=== PATIENT | female | born 1960 | race Caucasian/White ===

== ENCOUNTER 2020-06-27 12:32 | Emergency (ER) | payer MEDICARE, MEDICAID, SELFPAY ==
[2020-06-27 12:41] VITALS: BP 115/53; PULSE 70; RESP 20; TEMP 36.2; O2SAT 95
--- NOTE | 2020-06-27 12:51 | ED.NAVMDI ---
HPI - Nausea/Vomiting/Diarrhea General Chief complaint: Nausea/Vomiting/Diarrhea Stated complaint: diarrhea/joint pain/sinus issue Time Seen by Provider: 06/27/20 12:50 History of Present Illness HPI Narrative: 59 yo female with intellectual disability and multiple comorbidities presents to the ED for diarrhea. Diarrhea intermittently for the past 5 days. Associated with mild nausea, dark urine, and LUQ discomfort. Additionally having light headedness on standing. She tried taking peptobismol and has not had any diarrhea today. Related Data Home Medications Medication Instructions Recorded Confirmed aspirin 81 mg PO DAILY 06/27/20 blood sugar diagnostic [OneTouch 06/27/20 06/27/20 Verio test strips] carvedilol 06/27/20 cholecalciferol (vitamin D3) 50 mcg PO DAILY 06/27/20 diltiazem HCl 06/27/20 diphenhydramine HCl [Benadryl] 25 mg PO HS PRN 06/27/20 escitalopram oxalate mg 06/27/20 furosemide 06/27/20 insulin glargine [Lantus U-100 SUBCUT 06/27/20 Insulin] insulin lispro [Humalog U-100 06/27/20 Insulin] insulin lispro [Humalog U-100 06/27/20 Insulin] insulin syringe-needle U-100 [Sure 06/27/20 06/27/20 Comfort Insulin Syringe] insulin syringe-needle U-100 06/27/20 06/27/20 [TRUEplus Insulin] levothyroxine 06/27/20 lisinopril 06/27/20 nortriptyline 06/27/20 omeprazole 06/27/20 oxybutynin chloride 06/27/20 potassium chloride meq PO 06/27/20 rivaroxaban [Xarelto] mg 06/27/20 Allergies Allergy/AdvReac Type Severity Reaction Status Date / Time Sulfa (Sulfonamide Allergy Mild RASH Verified 06/27/20 12:51 Antibiotics) Review of Systems Review of Systems: All systems reviewed & are unremarkable except as noted in HPI and below Constitutional: Constitutional: Denies fever(s) Cardiovascular: Cardiovascular: Denies chest pain Respiratory: Respiratory: Denies dyspnea Gastrointestinal: Gastrointestinal: Denies abdominal pain, Reports diarrhea, Reports nausea and Denies vomiting Genitourinary: Genitourinary: Denies hematuria and Denies dysuria Neurologic: Reports dizziness and Denies syncope [facility] Past Medical History Medical History (Updated 06/27/20 @ 14:23 by Francesco Billings MD) Diabetes HTN (hypertension) Hypothyroidism Social History Social History Gender identity (if verbalized by the patient): Female Exam Const: General: no acute distress and alert Nutritional Appearance: obese Orientation/consciousness: patient oriented x3 HENMT: Head: normal to inspection Resp: Effort & Inspection: normal respiratory effort Auscultation: clear to auscultation bilaterally Cardio: Rate: regular rate Rhythm: regular rhythm GI: GI Palp: Yes Soft to palpation and No Tenderness to palpation present (GI) Skin: General skin exam: normal color Rashes: no rashes Neuro: General: patient oriented x3, moves all extremities and CN's II-XI intact bilaterally Extrem: General: normal to inspection Course Vital Signs Vital signs: Vital Signs Temperature 36.2 C L 06/27/20 12:41 Pulse Rate 70 06/27/20 12:41 Respiratory Rate 20 06/27/20 12:41 Blood Pressure 115/53 L 06/27/20 12:41 Pulse Oximetry 95 06/27/20 12:41 Temperature 36.2 C L 06/27/20 12:41 Pulse Rate 70 06/27/20 12:41 Respiratory Rate 20 06/27/20 12:41 Blood Pressure 115/53 L 06/27/20 12:41 Pulse Oximetry 95 06/27/20 12:41 MDM - Nausea/Vomiting/Diarrhea MDM Narrative Medical decision making narrative: Labs reassuring. Diarrhea. Lab Data Result diagrams: 06/27/20 13:09 06/27/20 13:09 Labs: Lab Results 06/27/20 06/27/20 06/27/20 Range/Units 13:09 13:09 13:09 WBC 6.6 (4.5-10.0) K/mm3 RBC 4.33 (4.2-5.4) M/mm3 Hgb 14.0 (12.0-15.0) g/dL Hct 41.0 (37.0-47.0) % MCV 94.7 (80-100) fl MCH 32.3 (26-34) pg MCHC 34.1 (32-36) g/dl RDW 11.9 (11.5-14.5) % Plt Count 264 (150-375) k/m
[2020-06-27 13:16] LABS: Basophils Absolute Auto 0.1 K/mm3 (0.0-0.1); Basophils Percent Auto 0.8 % (0.2-1.2); Eosinophils Absolute Auto 0.2 K/mm3 (0-0.3); Eosinophils Percent Auto 3.5 % (0-4.4); Immature Granulocyte Absolute 0.02 K/mm3 (0.00-0.031); Immature Granulocyte Percent A 0.3 % (0-0.5); Lymphocytes Absolute Auto 1.57 K/mm3 (0.9-3.2); Lymphocytes Percent Auto 23.9 % (18.3-44.2); Mean Corpuscular HGB Conc 34.1 g/dl (32-36); Mean Corpuscular Hemoglobin 32.3 pg (26-34); Mean Corpuscular Volume 94.7 fl (80-100); Mean Platelet Volume 9.6 fl (7.4-10.4); Monocytes Absolute Auto 0.6 K/mm3 (0.1-0.6); Monocytes Percent Auto 8.5 % (2.6-8.5); Neutrophils Absolute Auto 4.2 K/mm3 (1.3-6.7); Platelet Count Result 264 k/mm3 (150-375); Red Blood Count 4.33 M/mm3 (4.2-5.4); Red Cell Distribution Width 11.9 % (11.5-14.5); White Blood Count 6.6 K/mm3 (4.5-10.0)
[2020-06-27 13:18] LABS: Add Urine Microscopic? NO; Appearance Urine Clear (Clear); Bilirubin Urine Negative (Negative); Blood Urine Negative (Negative); Color Urine Colorless (Yellow); Glucose Urine UA Negative (Negative); Ketones Urine Negative (Negative); Leukocyte Esterase Ur Negative LEU/UL (Negative); Nitrate Urine Negative (Negative); Protein Urine Negative (Negative); Specific Grav Ur 1.009 (1.001-1.035); Urobilinogen Urine Negative mg/dL (<2.0)
[2020-06-27 13:27] LABS: Potassium 4.5 mmol/L (3.4-5.0)
[2020-06-27 13:30] LABS: Alanine Aminotransferase 18 U/L (4-35); Albumin Level 3.9 g/dL (3.5-5.1); Alkaline Phosphatase 184 U/L (38-126); Anion Gap 4 mmol/L (8-16); Aspartate Amino Transferase 20 U/L (14-36); Bilirubin,Total 0.4 mg/dL (0.2-1.3); Blood Urea Nitrogen 19 mg/dL (7-17); Calcium 9.5 mg/dL (8.4-10.2); Carbon Dioxide 29 mmol/L (22-30); Chloride 101 mmol/L (98-107); Estimated CRCL calculation 89 ml/min; Estimated Glomerular Filt Rate > 60; Glucose 160 mg/dL (65-105); Lipase 77 U/L (23-300); Sodium 134 mmol/L (137-145)
[2020-06-27] MEDS: SODIUM CHLORIDE 0.9% IV 1,000 ML 999 ML IV CONT (13:48)
== END 2020-06-27 14:20 | disposition home or self-care (01) ==
PROVIDERS: Emergency Provider Emergency Medicine; PCP Family Medicine
DX: R19.7 Diarrhea, unspecified (principal); E11.9 Type 2 diabetes mellitus without complications; I10 Essential (primary) hypertension; E03.9 Hypothyroidism, unspecified
CPT/HCPCS: 36415; 80053; 81003; 83690; 85025; 96360; 99283; J7030

== ENCOUNTER 2022-09-05 21:34 | Emergency (ER) | payer OTHER, SELFPAY ==
--- NOTE | ~2022-09-05 | XR_ITS ---
EXAMINATION: XR chest 2V DATE: 09/05/2022 23:47 INDICATION: Cough. Upper respiratory infection. TECHNIQUE: Frontal and lateral views of the chest were obtained. COMPARISON: Chest single view 03/16/17 FINDINGS: Delphine B lines are noted, consistent mild pulmonary edema. No pleural effusion or pneumotho rax. Cardiomegaly is noted. There is a left chest pacer/defibrillator with leads in right atrium and right ventricle. Surgical clips in the right upper quadrant are likely from cholecystectomy. There is a wire in perihilar right lower lobe. IMPRESSION: 1. Mild pulmonary edema. 2. Cardiomegaly. 3. Wire in perihilar right lower lobe, which may be an embolized foreign body, new from 03/16/17. Reviewed, dictated and finalized at location A. TRADER
[2022-09-05 21:41] VITALS: BP 119/80; PULSE 81; RESP 18; TEMP 36.2; O2SAT 98
[2022-09-05 22:32] LABS: Influenza A QL RT-PCR Negative (Negative); Influenza B QL RT-PCR Negative (Negative); SARS-CoV-2 RNA PCR Negative
--- NOTE | 2022-09-05 23:13 | ECG_ITS ---
Measurements Intervals [place] Rate: 75 P: [place]: 0 QRS: 29 QRSD: 146 T: 105 QT: 445 QTc: 498 Interpretive Statements ATRIAL FIBRILLATION LEFT BUNDLE BRANCH BLOCK LOW VOLTAGE- DIFFUSE LEADS BASELINE ARTIFACT- I, II, III, AVR, AVL, AVF, V1-V6 ABNORMAL ECG NO PREVIOUS ECG AVAILABLE FOR COMPARISON Electronically Signed On 09-06-2022 10:32:23 [employer] by Grabiel Caballero D.O.
--- NOTE | 2022-09-05 23:27 | ED.URI ---
HPI - URI/Sore Throat General Chief Complaint: Upper Respiratory Infection Stated Complaint: flu symptoms Time Seen by Provider: 09/05/22 21:51 Source: patient and family Mode of arrival: ambulatory Limitations: no limitations History of Present Illness HPI Narrative: Patient is a 61 y/o female who presents to the ED with c/o URI sx's. Patient reports she received her influenza and PNA vaccines on 08/26. She began to feel unwell on 08/30, and complains of mild productive cough, subjective fevers (never over 100 degrees F per patient's daughter at bedside), congestion, sore throat, myalgias, headache. Cough has began to improve slightly. Denies chest pain, difficulty breathing, nausea, vomiting, abdominal pain. Patient has been taking Tylenol, Mucinex, Robitussin for her symptoms with some relief. Related Data Home Medications Medication Instructions Recorded Confirmed aspirin 81 mg chewable tablet 81 mg PO DAILY 06/27/20 blood sugar diagnostic (OneTouch 06/27/20 06/27/20 Verio test strips) carvedilol 25 mg tablet 06/27/20 cholecalciferol (vitamin D3) 50 50 mcg PO DAILY 06/27/20 mcg (2,000 unit) chewable tablet diltiazem HCl 30 mg tablet 06/27/20 diphenhydramine HCl 25 mg capsule 25 mg PO HS PRN Insomnia 06/27/20 (Benadryl) escitalopram oxalate 10 mg tablet mg 06/27/20 furosemide 40 mg tablet 06/27/20 insulin glargine 100 unit/mL subcut 06/27/20 subcutaneous solution (Lantus U-100 Insulin) insulin lispro 100 unit/mL 06/27/20 subcutaneous solution (Humalog U-100 Insulin) insulin lispro 100 unit/mL 06/27/20 subcutaneous solution (Humalog U-100 Insulin) insulin syringe-needle U-100 0.5 06/27/20 06/27/20 mL 31 gauge x 5/16 (Sure Comfort Insulin Syringe) insulin syringe-needle U-100 0.5 06/27/20 06/27/20 mL 31 gauge x 5/16 (TRUEplus Insulin) levothyroxine 50 mcg tablet 06/27/20 lisinopril 5 mg tablet 06/27/20 nortriptyline 10 mg capsule 09/18/20 omeprazole 20 mg capsule,delayed 06/27/20 release oxybutynin chloride 5 mg tablet 06/27/20 potassium chloride 20 mEq meq PO 06/27/20 tablet,extended release(part/cryst) rivaroxaban 20 mg tablet (Xarelto) mg 06/27/20 Allergies Allergy/AdvReac Type Severity Reaction Status Date / Time Sulfa (Sulfonamide Allergy Mild RASH Verified 09/05/22 21:45 Antibiotics) Review of Systems Review of Systems: CONSTITUTIONAL: Reports subjective fevers. ENT: Reports rhinorrhea, congestion, sore throat. CARDIOVASCULAR: Denies chest pain. RESPIRATORY: Reports productive cough. Denies dyspnea. GASTROINTESTINAL: Denies abdominal pain, nausea, vomiting. MUSCULOSKELETAL: Reports myalgias. NEUROLOGIC: Reports headache. All systems reviewed & are unremarkable except as noted in HPI and below PMFSH Past Medical History Medical History (Updated 09/06/22 @ 01:25 by Bonnie Calderón PA-C) Atrial fibrillation Diabetes GERD (gastroesophageal reflux disease) HTN (hypertension) Hypothyroidism Overactive bladder Pacemaker Surgical History Surgical History AICD (automatic cardioverter/defibrillator) present Social History Social History (Updated 09/05/22 @ 23:53 by Bonnie Calderón PA-C) Smoking status: Never smoker Gender identity (if verbalized by the patient): Female Exam Narrative: GENERAL: Well appearing, morbidly obese, non-toxic, in no acute distress. EENT: PERRLA/EOMI, conjunctiva clear. No nasal drainage. Minimal posterior pharynx erythema and to uvula, no tonsillar hypertrophy or exudate. HEAD: Normocephalic, atraumatic. NECK: Supple. No adenopathy, no masses. RESPIRATORY: Airway patent, respirations nonlabored. Clear to auscultation bilaterally, no rales, rhonchi, wheezing. CARDIOVASCULAR: Regular rate and rhythm without murmurs, rubs, or gallops. Radial pulses 2+ and equal bilaterally. ABDOMINAL: Soft, nontender, nondistended, no h
[2022-09-05 23:33] LABS: Basophils Absolute Auto 0.1 K/mm3 (0.0-0.1); Basophils Percent Auto 0.9 % (0.2-1.2); Eosinophils Absolute Auto 0.2 K/mm3 (0-0.3); Eosinophils Percent Auto 2.8 % (0-4.4); Hematocrit 48.6 % (37.0-47.0); Immature Granulocyte Absolute 0.02 K/mm3 (0.00-0.031); Immature Granulocyte Percent A 0.3 % (0-0.5); Lymphocytes Absolute Auto 2.57 K/mm3 (0.9-3.2); Lymphocytes Percent Auto 34.8 % (18.3-44.2); Mean Corpuscular HGB Conc 32.9 g/dl (32-36); Mean Corpuscular Hemoglobin 32.1 pg (26-34); Mean Corpuscular Volume 97.4 fl (80-100); Mean Platelet Volume 9.4 fl (7.4-10.4); Monocytes Absolute Auto 0.6 K/mm3 (0.1-0.6); Monocytes Percent Auto 8.1 % (2.6-8.5); Neutrophils Absolute Auto 3.9 K/mm3 (1.3-6.7); Neutrophils Percent Auto 53.1 % (45.5-73.1); Platelet Count Result 282 k/mm3 (150-375); Red Blood Count 4.99 M/mm3 (4.2-5.4); Red Cell Distribution Width 12.3 % (11.5-14.5); White Blood Count 7.4 K/mm3 (4.5-10.0)
[2022-09-06 00:46] LABS: Alanine Aminotransferase 26 U/L (6-35); Alkaline Phosphatase 180 U/L (38-126); Anion Gap 10 mmol/L (8-16); Aspartate Amino Transferase 32 U/L (14-36); Bilirubin,Total 0.5 mg/dL (0.2-1.3); Blood Urea Nitrogen 21 mg/dL (7-17); Calcium 9.2 mg/dL (8.4-10.2); Carbon Dioxide 27 mmol/L (22-30); Chloride 101 mmol/L (98-107); Estimated CRCL calculation 82 ml/min; Estimated Glomerular Filt Rate > 60; Glucose 179 mg/dL (65-110); Sodium 138 mmol/L (137-145)
[2022-09-06 01:37] VITALS: BP 129/70; PULSE 82; RESP 30; O2SAT 96
== END 2022-09-06 01:37 | disposition home or self-care (01) ==
PROVIDERS: Emergency Medicine; Emergency Provider Physician Assistant; PCP Family Medicine
DX: J06.9 Acute upper respiratory infection, unspecified (principal); I48.91 Unspecified atrial fibrillation; E11.9 Type 2 diabetes mellitus without complications; I10 Essential (primary) hypertension; E03.9 Hypothyroidism, unspecified; Z79.01 Long term (current) use of anticoagulants; Z20.822 Contact with and (suspected) exposure to COVID-19
CPT/HCPCS: 36415; 71046; 80053; 85025; 87636; 93005; 99283

== ENCOUNTER 2023-01-09 18:13 | Emergency (ER) | payer OTHER, SELFPAY ==
--- NOTE | 2023-01-09 18:43 | PC.NURSE ---
Pt to the intake desk and states that she is [facility]. Pt sister took out by wheelchair
== END 2023-01-09 18:50 | disposition left against medical advice (07) ==
LOC: ANHED 18:49
PROVIDERS: PCP Family Medicine
DX: Z53.21 Procedure and treatment not carried out due to patient leaving prior to being seen by health care provider (principal)
CPT/HCPCS: 99199

== ENCOUNTER 2024-05-20 20:18 | Inpatient (IN) | payer OTHER, SELFPAY ==
[2024-05-20] VITALS (8 sets, daily range): BP systolic 86–112; BP diastolic 45–72; PULSE 84–94; RESP 20–34; TEMP 36.6; O2SAT 94–97
--- NOTE | ~2024-05-20 | CT_ITS ---
EXAMINATION: CT brain wo con DATE: 05/21/2024 22:56 INDICATION: Severe neck pain . TECHNIQUE: Computed tomography (CT) of the head was performed without intravenous contrast. The mA wa s adjusted according to patient size. Iterative reconstruction technique was employed. The dose-lengt h product was 681.00 mGy-cm. COMPARISON: None. FINDINGS: No acute intracranial hemorrhage or extra-axial fluid collection. No hydrocephalus, mass, or herniation. No acute ischemic infarct. Unremarkable dural venous sinus attenuation. No acute osseous abnormality. The aerated spaces are clear. Mild atrophy and chronic white matter change. Atherosclerotic intracranial calcification. IMPRESSION: No acute intracranial process. Reviewed, dictated and finalized at location K.
--- NOTE | ~2024-05-20 | XR_ITS ---
EXAMINATION: XR chest 2V DATE: 05/21/2024 00:50 INDICATION: Hypotension. TECHNIQUE: Frontal and lateral views of the chest were obtained. COMPARISON: Chest 2 views 09/05/2022, CT abdomen and pelvis 05/21/2024 FINDINGS: There is a diffuse interstitial pattern, consistent with mild pulmonary edema. There are tr dory pleural effusions. No pneumothorax. Cardiomegaly is noted. There is a left chest wall pacer with leads in the right atrium and right ventricle. Surgical clips in the right upper quadrant are likely from cholecystectomy. IMPRESSION: 1. Mild pulmonary edema with trace pleural effusions. 2. Cardiomegaly. Reviewed, dictated and finalized at location A.
--- NOTE | ~2024-05-20 | US_ITS ---
EXAMINATION: US abdomen limited DATE: 05/21/2024 10:53 INDICATION: Transaminitis. Hyperbilirubinemia. Abdominal pain. Nausea and vomiting. TECHNIQUE: Multiple grayscale and Doppler ultrasound images of the abdomen were obtained. COMPARISON: CT abdomen and pelvis 05/21/2024 FINDINGS: The visualized portions of the head, body, and tail of the pancreas are normal. Abdominal a pantera is normal in caliber. The liver is normal without focal lesion. There is normal flow in main por cathy vein. The gallbladder is absent. The common duct is normal and measures 5 mm. IMPRESSION: 1. Normal right upper quadrant ultrasound status post cholecystectomy. Reviewed, dictated and finalized at location A.
--- NOTE | ~2024-05-20 | CT_ITS ---
EXAMINATION: CT abdomen pelvis w con DATE: 05/21/2024 00:36 INDICATION: Left abdominal pain. TECHNIQUE: Computed tomography (CT) of the abdomen and pelvis was performed with 100 mL Omnipaque 350 intravenous contrast. Automated exposure control and iterative reconstruction technique were employe d. The dose-length product was 1765.33 mGy-cm. COMPARISON: CT abdomen and pelvis 03/16/2017 FINDINGS: The visualized portions of the lung bases demonstrate mild atelectasis. A calcified left hemalatha ng nodule and calcified left hilar lymph nodes are consistent with old granulomatous disease. There a re trace pleural effusions. Cardiomegaly is noted. There is a trace pericardial effusion. There are p acer wires in right atrium and right ventricle. There is a small sliding hiatal hernia. The liver, sp deng, pancreas, adrenal glands, and kidneys are normal. There are changes of cholecystectomy. There i s diverticulosis of the colon without evidence of diverticulitis. There are no dilated loops of bowel . The appendix is not visualized. There are no pathologically enlarged lymph nodes. There is no free intraperitoneal fluid. There is mild lumbar spondylosis. There is mild chronic anterior wedging of mu ltiple thoracic vertebral bodies. There is moderate thoracic spondylosis. IMPRESSION: 1. Small sliding hiatal hernia. Reviewed, dictated and finalized at location A.
--- NOTE | ~2024-05-20 | CT_ITS ---
EXAMINATION: CT cervical spine wo con DATE: 05/21/2024 22:56 INDICATION: neck pain TECHNIQUE: Computed tomography (CT) of the cervical spine was performed without intravenous contrast. Automated exposure control and iterative reconstruction technique were employed. The dose-length pro duct was 681.00 mGy-cm. COMPARISON: None. FINDINGS: Vertebral Body Alignment: Intact. Craniocervical and atlantoaxial alignment: Mild degenerative change. Alignment intact. Osseous structures/fracture: No evidence of a lytic or blastic process in the visualized spine. No e vidence of acute fracture. Cervical soft tissues: The paraspinal soft tissues planes are maintained. Partially visualized pacing wires. Degenerative changes: Multilevel mild degenerative disc disease. Multilevel facet arthropathy, modera te at C2-3. IMPRESSION: No acute fracture or traumatic malalignment in the cervical spine. No severe central canal or neural foraminal narrowing. Reviewed, dictated and finalized at location K. IMPRESSION: No acute fracture or traumatic malalignment in the cervical spine. No severe ce ntral canal or neural foraminal narrowing.
[2024-05-20 22:39] LABS: Hematocrit 40.4 % (37.0-47.0); Immature Platelet Fraction Pct 3.9 % (0.9-11.2); Mean Corpuscular HGB Conc 34.7 g/dl (32-36); Mean Corpuscular Hemoglobin 33.7 pg (26-34); Mean Corpuscular Volume 97.1 fl (80-100); Mean Platelet Volume 10.2 fl (7.4-10.4); Platelet Count Result 109 k/mm3 (150-375); Red Blood Count 4.16 M/mm3 (4.2-5.4); Red Cell Distribution Width 12.6 % (11.5-14.5); White Blood Count 5.7 K/mm3 (4.5-10.0)
[2024-05-20 22:55] LABS: Alanine Aminotransferase 85 U/L (6-35); Albumin Level 3.4 g/dL (3.5-5.1); Alkaline Phosphatase 159 U/L (38-126); Anion Gap 11 mmol/L (4-12); Aspartate Amino Transferase 127 U/L (14-36); Bilirubin,Total 2.4 mg/dL (0.2-1.3); Blood Urea Nitrogen 34 mg/dL (7-17); Calcium 8.5 mg/dL (8.4-10.2); Carbon Dioxide 23 mmol/L (22-30); Chloride 88 mmol/L (98-107); Estimated CRCL calculation 69 ml/min; Estimated Glomerular Filt Rate 56; Glucose 166 mg/dL (65-110); Potassium 3.8 mmol/L (3.4-5.0); Sodium 122 mmol/L (137-145)
[2024-05-20 23:02] LABS: Neutrophils Percent Manual 78 % (46-73); Total Cells Counted 100
[2024-05-20 23:03] LABS: Band Neutrophils Percent 17 % (0-6); Lymphocytes Absolute Manual 0.17 K/mm3 (1.1-4.5); Monocytes Absolute Manual 0.11 K/mm3 (0.1-0.90); Monocytes Percent Manual 2 % (3-9); Neutrophils Absolute Manual 5.41 K/mm3 (1.7-7.2); Platelet Estimate Decreased (Adequate)
[2024-05-20 23:04] LABS: Burr Cells 1+; Schistocytes None Seen
[2024-05-20 23:13] LABS: Influenza A QL RT-PCR Negative (Negative); Influenza B QL RT-PCR Negative (Negative); RSV RNA, RT-PCR Negative (Negative); SARS-CoV-2 RNA PCR Negative (Negative)
--- NOTE | 2024-05-20 23:33 | ED.FEVER ---
HPI - Fever General Chief Complaint: Fever <Argelia Pruett PA-C - Last Filed: 05/21/24 02:44> Stated Complaint: fever <Argelia Pruett PA-C - Last Filed: 05/21/24 02:44> Time Seen by Provider: 05/20/24 23:12 <Argelia Pruett PA-C - Last Filed: 05/21/24 02:44> History of Present Illness HPI Narrative: 63-year-old female with history of atrial fibrillation, GERD, hypertension, hypothyroidism, insulin-dependent diabetes, AICD present presents to the emergency department with her sister at bedside for fever, N/V/ D. Patient is a poor historian and has a history of intellectual disability. When I ask her what is wrong she states she has pain and points to her left side your left upper quadrant. She also endorses that she has had some nausea and vomiting as well as diarrhea over the past couple of days. She states she has had a fever when I asked order fevers but she says Her temperature has been 98. She denies dysuria or hematuria, cough or congestion. Patient's sister is at bedside and states patient lives at home alone. She is at baseline mental status per sister at bedside. <Argelia Pruett PA-C - Last Filed: 05/21/24 02:44> Related Data Home Medications: Home Medications Medication Instructions Recorded Confirmed aspirin 81 mg chewable tablet 81 mg PO DAILY 06/27/20 blood sugar diagnostic (OneTouch 06/27/20 06/27/20 Verio test strips) carvedilol 25 mg tablet 06/27/20 cholecalciferol (vitamin D3) 50 50 mcg PO DAILY 06/27/20 mcg (2,000 unit) chewable tablet diltiazem HCl 30 mg tablet 06/27/20 diphenhydramine HCl 25 mg capsule 25 mg PO HS PRN Insomnia 06/27/20 (Benadryl) escitalopram oxalate 10 mg tablet mg 06/27/20 furosemide 40 mg tablet 06/27/20 insulin glargine 100 unit/mL subcut 06/27/20 subcutaneous solution (Lantus U-100 Insulin) insulin lispro 100 unit/mL 06/27/20 subcutaneous solution (Humalog U-100 Insulin) insulin lispro 100 unit/mL 06/27/20 subcutaneous solution (Humalog U-100 Insulin) insulin syringe-needle U-100 0.5 06/27/20 06/27/20 mL 31 gauge x 5/16 (Sure Comfort Insulin Syringe) insulin syringe-needle U-100 0.5 06/27/20 06/27/20 mL 31 gauge x 5/16 (TRUEplus Insulin) levothyroxine 50 mcg tablet 06/27/20 lisinopril 5 mg tablet 06/27/20 nortriptyline 10 mg capsule 06/27/20 omeprazole 20 mg capsule,delayed 06/27/20 release oxybutynin chloride 5 mg tablet 06/27/20 potassium chloride 20 mEq meq PO 06/27/20 tablet,extended release(part/cryst) rivaroxaban 20 mg tablet (Xarelto) mg 06/27/20 <Argelia Pruett PA-C - Last Filed: 05/21/24 02:44> Allergies/Adverse Reactions: Allergies Allergy/AdvReac Type Severity Reaction Status Date / Time Sulfa (Sulfonamide Allergy Mild RASH Verified 09/05/22 21:45 Antibiotics) <Argelia Pruett PA-C - Last Filed: 05/21/24 02:44> Review of Systems Review of Systems: All systems reviewed & are unremarkable except as noted in HPI and below <Argelia Pruett PA-C - Last Filed: 05/21/24 02:44> [facility] Past Medical History Medical History: Medical History Atrial fibrillation Diabetes GERD (gastroesophageal reflux disease) HTN (hypertension) Hypothyroidism Overactive bladder Pacemaker <Argelia Pruett PA-C - Last Filed: 05/21/24 02:44> Surgical History Surgical History: Surgical History AICD (automatic cardioverter/defibrillator) present <Argelia Pruett PA-C - Last Filed: 05/21/24 02:44> Social History Social History: Social History Smoking status: Never smoker Gender identity (if verbalized by the patient): Female <Argelia Pruett PA-C - Last Filed: 05/21/24 02:44> Exam Narrative: GENERAL: Ill appearing, well-nourished,
[2024-05-20] MEDS: SODIUM CHLORIDE 0.9% IV 1,000 ML 999 ML IV CONT (23:41)
[2024-05-20] MEDS: ACETAMINOPHEN 500 MG TABLET 1000 MG PO (23:41)
[2024-05-21] VITALS (28 sets, daily range): BP systolic 82–129; BP diastolic 31–98; PULSE 66–87; RESP 7–39; TEMP 36.1–36.7; O2SAT 91–98; BMI 45.8
--- NOTE | 2024-05-21 | ECHO_ITS ---
Patient Info Name: Loretta Penn Age: 63 years : 1960 Gender: Female Ht: 65 in Wt: 274 lbs BSA: 2.46 m2 HR: 86 bpm BP: 100 / 86 mmHg Heart Rhythm: Indeterminant Technical Quality: Fair Exam Date: 05/21/2024 1:56 PM Exam Location: Echo Lab Patient Status: Outpatient Admit Date: 05/21/2024 Staff Ordering Physician: Lou Hoskins Pharmacovigilance Specialist: Blanca Adan RDCS Attending Provider: Ramon Calvert MD Referring Physician: Gato REYNAGA; Exam Type: CA echo dop color flow w con Study Info Indications - pulmonary edema Complete two-dimensional, color flow and Doppler transthoracic echocardiogram is performed with contrast to opacify the left ventricle and to improve the deliniation of the left ventricle endocardial borders. Contrast/Agitated Saline Contrast/Ag. Saline: Definity Amount: 2.00 ml Administered By: Blanca Adan RDCS Existing IV Access: Yes IV Access Condition: patent with no signs of infiltration Summary 1. Technically difficult echocardiogram, definity contrast utilized to improve visualization. 2. Mild left ventricular enlargement with moderate hypokinesia. 3. Moderate left atrial enlargement. 4. Mild tricuspid and pulmonic regurgitation. 5. Pacemaker lead noted. Left Ventricle Left ventricular chamber dimension is mildly enlarged. Left ventricular systolic function is moderately reduced, estimated at 35-40%. The left ventricular diastolic function is indeterminate. Right Ventricle Right ventricular chamber dimension is normal. Linear artifact in right ventricle suggestive of catheter(s), pacemaker lead(s), or ICD lead(s). Left Atria Left atrial chamber dimension is moderately enlarged. Right Atria Right atrial chamber dimension is normal. Linear artifact in the right atrium suggestive of catheter(s), pacemaker lead(s), or ICD lead(s). Aortic Valve The aortic valve is trileaflet. There is no aortic valve stenosis. Pulmonic Valve The pulmonic valve is normal. There is mild pulmonic regurgitation. Mitral Valve The mitral valve has normal leaflets. Tricuspid Valve The tricuspid valve leaflets are normal. There is mild tricuspid valve regurgitation. Pericardium/Pleural The pericardium appears normal. Aorta The aortic root size at the sinus of Valsalva is normal. Left Ventricular Outflow Tract Name Value Normal LVOT 2D LVOT Diameter 2.06 cm LVOT Doppler LVOT Peak Gradient 2 mmHg LVOT Mean Gradient 1 mmHg LVOT VTI 10.19 cm LVOT VTI/AV VTI Ratio 0.44 LVOT Stroke Volume 33.87 ml LVOT CO 3.08 l/min LVOT CI 1.25 L/min/m2 Pulmonic Valve Name Value Normal RVOT Doppler RVOT Peak Gradient 3 mmHg PV Dop
[2024-05-21] MEDS: PIPERACILLN/TAZ 3.375GM/NS50ML 3.375 GM/50 ML BAG IVPB ×4 (00:02→17:35)
[2024-05-21] MEDS: SODIUM CHLORIDE 0.9% IV 1,000 ML 999 ML IV CONT ×2 (00:10→01:49)
[2024-05-21 00:18] LABS: INR 3.9; Prothrombin Time 38.6 Seconds (11.1-14.7)
[2024-05-21 00:19] LABS: Partial Thromboplastin Time 49.6 Seconds (22.3-36.8)
[2024-05-21 00:24] LABS: Lactic Acid Reflex 1.2 mmol/L (0.7-2.0)
[2024-05-21 00:37] LABS: Troponin I < 0.012 ng/mL (0.000-0.034)
[2024-05-21 01:08] LABS: Magnesium 1.7 mg/dL (1.6-2.3)
[2024-05-21 01:16] LABS: CRP 31.1 mg/dL (<1.0)
[2024-05-21 01:20] LABS: Lipase 20 U/L (23-300)
--- NOTE | 2024-05-21 01:20 | ECG_ITS ---
Test Date: 2024-05-21 01:20:37 Measurements Intervals [place] Rate: 71 P: 0 [place]: 0 QRS: 15 QRSD: 147 T: 126 QT: 463 QTc: 503 Interpretive Statements ATRIAL FIBRILLATION WITH ABERRANT CONDUCTION OR VENTRICULAR PREMATURE COMPLEXES LEFT BUNDLE BRANCH BLOCK ABNORMAL ECG Compared to ECG 05/21/2024 00:01:35 NO SIGNIFICANT CHANGE Electronically Signed On 05-21-2024 12:29:25 CDT by Tom Huang M.D.
[2024-05-21 01:34] LABS: Add Urine Microscopic? YES; Appearance Urine Cloudy (Clear); Bilirubin Urine Negative (Negative); Blood Urine 1+ (Negative); Color Urine Yellow (Yellow); Glucose Urine UA 3+ mg/dL (Negative); Ketones Urine 1+ mg/dL (Negative); Leukocyte Esterase Ur Negative LEU/UL (Negative); Need Manual Microscopic Reviewed; Nitrate Urine Negative (Negative); Non Pathogenic Casts 0-2; Protein Urine Trace mg/dL (Negative); RBC Urine 0-2 /hpf (0-2); Specific Grav Ur 1.041 (1.001-1.035); Squamous Epithelial Cell Urine None Seen /hpf (Few); WBC Urine 0-5 /hpf (0-3)
[2024-05-21 01:35] LABS: Bacteria Urine 2+ /hpf
--- NOTE | 2024-05-21 01:35 | ECG_ITS ---
Test Date: 2024-05-21 00:01:35 Measurements Intervals [place] Rate: 86 P: 0 [place]: 0 QRS: 80 QRSD: 152 T: 113 QT: 419 QTc: 502 Interpretive Statements ATRIAL FIBRILLATION WITH ABERRANT CONDUCTION OR VENTRICULAR PREMATURE COMPLEXES LEFT BUNDLE BRANCH BLOCK ABNORMAL ECG No previous ECG available for comparison Electronically Signed On 05-21-2024 12:28:34 CDT by Tom Huang M.D.
[2024-05-21] MEDS: VANCOMYCIN 1,250 MG/NS 250 ML 1,250 MG/250 ML BAG 166.67 MG IVPB ×2 (01:45→03:24)
[2024-05-21 03:13] LABS: Anion Gap 5 mmol/L (4-12); Blood Urea Nitrogen 29 mg/dL (7-17); Calcium 7.8 mg/dL (8.4-10.2); Carbon Dioxide 26 mmol/L (22-30); Chloride 93 mmol/L (98-107); Estimated CRCL calculation 76 ml/min; Estimated Glomerular Filt Rate > 60; Glucose 135 mg/dL (65-110); Potassium 3.6 mmol/L (3.4-5.0); Sodium 124 mmol/L (137-145)
--- NOTE | 2024-05-21 04:48 | ADMGEN ---
This patient, Loretta Penn, was admitted to Medical Room 340-01. Patient/family oriented to hospital policies and general routines including ID bracelet, bed and alarms, visiting hours, pain management, procedures, bathroom and other care routines, personal items, smoking policy, room service/diet, and visiting hours. Information on how to activate the Rapid Response Team has been discussed. Patient/Family are encouraged to report perceived risks to care and to ask questions if they do not understand what they are told or what they should do.
[2024-05-21] MEDS: LACTATED RINGERS 1,000 ML 120 ML IV CONT (05:06)
[2024-05-21] MEDS: HYDROmorphone HCL INJ (*CRX) 1 MG/ML SYR IV PUSH (05:30)
[2024-05-21] MEDS: ONDANSETRON INJ 4 MG/2 ML VIAL IV PUSH (05:30)
--- NOTE | 2024-05-21 09:05 | PM.IMHP ---
H&P: HPI History of Present Illness Date/Time: 05/21/24 09:05 Chief Complaint: Nausea, vomiting, diarrhea and abdominal pain Narrative: This 63-year-old female patient with past medical history significant chronic atrial fibrillation on Xarelto for chronic anticoagulation, diabetes mellitus with long-term insulin use, GERD, hypertension, hypothyroidism, overactive bladder intellectual disability and previous pacemaker placement who resides independently at home, cared for by her sister presented to the hospital overnight through the emergency room and has been subsequently admitted to hospitalist service for continued management abdominal pain, hyponatremia, and abnormal labs. Patient herself is a very poor historian and there is an obvious degree of intellectual disability. Her contribution to my HPI is limited and therefore most information is obtained through reading the emergency room record in previous EMR entries. Patient apparently developed left-sided abdominal pain with nausea, vomiting and diarrhea over the course of the past couple of days prompting her presentation to the emergency room. Her sister who presented with her believe patient probably have a fever however there was no noted fever upon her arrival to ER or admission to the hospital. In the emergency room it was noted that her labs were significant for a normal white blood cell count at 5.7 but differential showed 17% bands. Her lactic acid was normal at 1.2. Metabolic panel was significant for a sodium of 122 increasing 11/10/2023 this morning, hypochloremia of 88. Blood cultures x2 are currently pending. Urinalysis was not appreciable for any acute urinary tract infection. Metabolic panel is further notable for a bilirubin of 2.4, AST 127 ALT of [address] of the abdomen and pelvis that demonstrated a small sliding hiatal hernia but was otherwise unremarkable. Chest x-ray also showed mild pulmonary edema with trace pleural effusion and cardiomegaly. Respiratory panel was not showing of any acute viral respiratory illness. Patient was started on vancomycin and Zosyn after receiving IV fluids and admitted to the hospital for continued hospitalist coverage. This morning at the bedside patient states she has body aches all over specifically in her neck and arms. She does still complain of some abdominal discomfort. She has been able to tolerate her breakfast without difficulty. I am told by the RN, Wicho, who has her this today that the patient overnight did receive a dose of Dilaudid that was ordered by hospitalist for generalized pain. She believes that the Dilaudid made her very sleepy and unable to function at her normal level. Patient denies any chest pains, dyspnea per report she is still nauseated at this time despite eating breakfast. Review of Systems Review of Systems: All systems reviewed & are unremarkable except as noted in HPI and below PMFSH Past Medical History Medical History (Updated 05/21/24 @ 09:39 by ANNABEL Pedroza) Atrial fibrillation Diabetes GERD (gastroesophageal reflux disease) HTN (hypertension) Hypothyroidism Overactive bladder Pacemaker Surgical History Surgical History AICD (automatic cardioverter/defibrillator) present Family History Family History Other Unknown family medical history Social History Social History Smoking status: Never smoker Alcohol intake: never Substance use: current Substance use type: marijuana Do You Feel Safe in your Home?: Yes Lack of Transportation: No Lack of Food: Never True Current Housing: I Have Housing Concerned About Future Housing: No Difficulty Paying Gas/Electric Bills: No Difficulty Paying for Meds: No Currently Unemployed: No Education: Grade School Difficulty w/ Childca
[2024-05-21 09:28] LABS: Glucose Point of Care 164 mg/dl (65-105)
--- NOTE | 2024-05-21 11:05 | PC.NURSE ---
RN gave update via telephone to sister Peg on patient status.
[2024-05-21] MEDS: SODIUM CHLORIDE 0.9% IV 1,000 ML 75 ML IV CONT (11:26)
[2024-05-21] MEDS: ESCITALOPRAM OXALATE 10 MG TABLET PO (11:27)
[2024-05-21] MEDS: PANTOPRAZOLE 40 MG TABLET PO (11:27)
[2024-05-21] MEDS: EMPAGLIFLOZIN 25 MG TABLET BY MOUTH (11:28)
[2024-05-21] MEDS: POTASSIUM CHLORIDE 20 MEQ ER TABLET PO (11:28)
[2024-05-21] MEDS: LEVOTHYROXINE SODIUM 75 MCG TABLET PO (11:28)
[2024-05-21] MEDS: IBUPROFEN 600 MG TABLET PO (11:30)
[2024-05-21] MEDS: NORTRIPTYLINE HCL 10 MG CAPSULE PO (11:31)
[2024-05-21] MEDS: SACUBITRIL/VALSARTAN 24-26 MG TABLET 1 TAB PO ×2 (11:31→21:10)
[2024-05-21] MEDS: INSULIN ASPART (*BKC) 100 UNITS/ML 10 UNITS SUB-Q ×2 (12:04→17:34)
[2024-05-21 12:07] LABS: Glucose Point of Care 219 mg/dl (65-105)
[2024-05-21 13:01] LABS: Sodium Urine Random < 5 meq/L
--- NOTE | 2024-05-21 13:01 | PC.NURSE ---
RN gave update via telephone to sister Peg on patient status.
[2024-05-21] MEDS: PERFLUTREN LIPID MICROSPHERES 1.5 ML VIAL DILUTED TO 10 ML TOTAL VOLUME IV PUSH (14:22)
--- NOTE | 2024-05-21 14:39 | IVDEFINITY ---
Prior to administration of IV Definity the patient was educated on the risks and benefits of the imaging enhancing agent including potential adverse side effects. The patient verbalized understanding. Allergies were verified. No exclusion criteria were identified and at least one of the following inclusion criteria were met: 1) physician request, 2) patient technically difficult to image (per the [place] [employer] guidelines of two or more segments not discernable within the apical view), or 3) questionable left ventricular function. ?
--- NOTE | 2024-05-21 14:40 | IVDEFINITY ---
Prior to administration of IV Definity the patient was educated on the risks and benefits of the imaging enhancing agent including potential adverse side effects. The patient verbalized understanding. Allergies were verified. No exclusion criteria were identified and at least one of the following inclusion criteria were met: 1) physician request, 2) patient technically difficult to image (per the [place] [employer] Echocardi[employer] guidelines of two or more segments not discernable within the apical view), or 3) questionable left ventricular function. ?
[2024-05-21 17:01] LABS: Glucose Point of Care 209 mg/dl (65-105)
[2024-05-21] MEDS: DOCUSATE SODIUM 100 MG CAPSULE PO (17:35)
[2024-05-21] MEDS: RIVAROXABAN 20 MG TABLET PO (17:35)
[2024-05-21] MEDS: traMADol HCL (*CRX) 50 MG TABLET PO (20:24)
[2024-05-21] MEDS: VANCOMYCIN 1,500 MG/NS 500 ML 1,500 MG/500 ML BAG 250 MG IVPB (20:25)
[2024-05-21 20:35] LABS: Glucose Point of Care 217 mg/dl (65-105)
[2024-05-21] MEDS: carvediloL 6.25 MG TABLET PO (21:10)
[2024-05-21] MEDS: HYDROcodone/acetaminophen (*CRX) 5-325 MG TABLET 1 TAB PO (22:15)
[2024-05-22] VITALS (14 sets, daily range): BP systolic 103–111; BP diastolic 43–58; PULSE 78–112; RESP 18–20; TEMP 36–36.6; O2SAT 91–98
[2024-05-22] MEDS: PIPERACILLN/TAZ 3.375GM/NS50ML 3.375 GM/50 ML BAG IVPB ×4 (00:06→17:41)
[2024-05-22] MEDS: SODIUM CHLORIDE 0.9% IV 1,000 ML 75 ML IV CONT (05:29)
[2024-05-22] MEDS: LEVOTHYROXINE SODIUM 75 MCG TABLET PO (05:29)
[2024-05-22 06:18] LABS: Hematocrit 37.7 % (37.0-47.0); Hemoglobin 12.8 g/dL (12.0-15.0); Immature Platelet Fraction Pct 6.9 % (0.9-11.2); Mean Corpuscular Hemoglobin 33.4 pg (26-34); Mean Corpuscular Volume 98.4 fl (80-100); Platelet Count Result 68 k/mm3 (150-375); Red Blood Count 3.83 M/mm3 (4.2-5.4); Red Cell Distribution Width 12.8 % (11.5-14.5); White Blood Count 4.8 K/mm3 (4.5-10.0)
[2024-05-22 06:25] LABS: Alanine Aminotransferase 77 U/L (6-35); Albumin Level 2.8 g/dL (3.5-5.1); Alkaline Phosphatase 263 U/L (38-126); Anion Gap 9 mmol/L (4-12); Aspartate Amino Transferase 83 U/L (14-36); Bilirubin,Total 2.7 mg/dL (0.2-1.3); Blood Urea Nitrogen 33 mg/dL (7-17); Calcium 7.9 mg/dL (8.4-10.2); Carbon Dioxide 20 mmol/L (22-30); Chloride 96 mmol/L (98-107); Estimated CRCL calculation 76 ml/min; Estimated Glomerular Filt Rate > 60; Glucose 132 mg/dL (65-110); Potassium 3.8 mmol/L (3.4-5.0); Sodium 125 mmol/L (137-145)
--- NOTE | 2024-05-22 07:25 | PC.NURSE ---
RN gave update to [place] via telephone about patient status.
[2024-05-22 07:42] LABS: Band Neutrophils Percent 39 % (0-6); Eosinophils Absolute Manual 0.04 K/mm3 (0.02-0.50); Eosinophils Percent Manual 1 % (0-4); Lymphocytes Absolute Manual 0.28 K/mm3 (1.1-4.5); Metamyelocytes Percent 1 %; Monocytes Absolute Manual 0.43 K/mm3 (0.1-0.90); Monocytes Percent Manual 9 % (3-9); Neutrophils Absolute Manual 3.93 K/mm3 (1.7-7.2); Neutrophils Percent Manual 43 % (46-73); Platelet Estimate Decreased (Adequate); Promyelocytes Percent 1 %; Schistocytes None Seen; Total Cells Counted 100
[2024-05-22 08:48] LABS: Glucose Point of Care 129 mg/dl (65-105)
--- NOTE | 2024-05-22 09:05 | PC.NURSE ---
RN gave update to [place] via telephone on patient status.
[2024-05-22 09:40] LABS: Hematocrit 39.1 % (37.0-47.0); Hemoglobin 13.5 g/dL (12.0-15.0); Immature Platelet Fraction Pct 7.2 % (0.9-11.2); Mean Corpuscular HGB Conc 34.5 g/dl (32-36); Mean Corpuscular Hemoglobin 33.7 pg (26-34); Mean Corpuscular Volume 97.5 fl (80-100); Mean Platelet Volume 11.2 fl (7.4-10.4); Platelet Count Result 76 k/mm3 (150-375); Red Blood Count 4.01 M/mm3 (4.2-5.4); Red Cell Distribution Width 12.9 % (11.5-14.5); White Blood Count 5.2 K/mm3 (4.5-10.0)
[2024-05-22] MEDS: POTASSIUM CHLORIDE 20 MEQ ER TABLET PO (10:48)
[2024-05-22] MEDS: EMPAGLIFLOZIN 25 MG TABLET BY MOUTH (10:48)
[2024-05-22] MEDS: SACUBITRIL/VALSARTAN 24-26 MG TABLET 1 TAB PO ×2 (10:48→21:19)
[2024-05-22] MEDS: ESCITALOPRAM OXALATE 10 MG TABLET PO (10:48)
[2024-05-22] MEDS: carvediloL 6.25 MG TABLET PO ×2 (10:48→21:19)
[2024-05-22] MEDS: PANTOPRAZOLE 40 MG TABLET PO (10:48)
[2024-05-22] MEDS: DOCUSATE SODIUM 100 MG CAPSULE PO ×2 (10:48→17:41)
[2024-05-22] MEDS: FERROUS SULFATE 325 MG TABLET DR PO (10:48)
[2024-05-22] MEDS: NORTRIPTYLINE HCL 10 MG CAPSULE PO (10:48)
[2024-05-22] MEDS: INSULIN GLARGINE (*BKC) 100 UNITS/ML 18 UNITS SUB-Q (10:49)
[2024-05-22 11:52] LABS: Glucose Point of Care 223 mg/dl (65-105)
--- NOTE | 2024-05-22 12:00 | P.PNIM_ITS ---
Progress Note: A&P Assessment and Plan (1) Acute dehydration: Code(s): E86.0 - Dehydration Status: Acute Assessment and Plan: * As evidenced by labs showing sodium of 122 and chloride of 88. * Suspect secondary to nausea, vomiting and diarrhea which prompted patient to present to the emergency room. * LR changed today to normal saline as 75 mL/hour to provide for increased sodium and decrease rate to help prevent further exacerbation of heart failure. * Continue to monitor labs and trend * Continue to monitor vital signs. * Patient tolerating diabetic diet. 05/22/24: * Slow improvement in her Sodium level with IVF of NS at 75 ml/hr. It is 125 today up from 122. * No further N/V/D. * Continue to monitor labs and vitals trends. (2) Acute hyponatremia: Code(s): E87.1 - Hypo-osmolality and hyponatremia Status: Acute Assessment and Plan: * Suspect cause is dehydration secondary to nausea, vomiting and diarrhea leading to insensible loss. * Check urine osmolality and urine sodium. * Slower replacement of sodium with normal saline at 75 mL/hour to further avoid exacerbation of heart failure * Continue to monitor and trend labs and vital signs. 05/22/24: * Urine sodium is <5, and urine osmolality is still pending. * There does not appear to be insensible loss of sodium in the urine. * Continue to monitor Sodium levels. (3) Atrial fibrillation: Code(s): I48.91 - Unspecified atrial fibrillation Status: Chronic Assessment and Plan: * Chronic in nature. * Continue carvedilol 25 mg q.12 hours for rate control * Continue Cardizem 30 mg q.8 hours * Continue Xarelto 20 mg daily for chronic anticoagulation. * Continue telemetry 05/22/24: * Continue telemetry, Carvedilol, Cardizem, Xarelto. * Currently in NSR today. (4) Transaminitis: Code(s): R74.01 - Elevation of levels of liver transaminase levels Status: Acute Assessment and Plan: * As noted per ER labs patient with AST of 127 and ALT of 85. * CT abdomen pelvis in emergency room that was performed unremarkable for causation. CT showed small sliding hiatal hernia only. * Given patient's symptoms of vomiting and nausea as well as abdominal pain, will obtain ultrasound of the abdomen. * Avoid Tylenol. * Trend CMP. * If acute worsening consider GI consult. 05/22/24: * AST decreased from 127 to 83 today * ALT with improvement of 85 to 77 today. * Non-specific elevation of transaminases. * Continue to trend. * Consider GI consult. * US abdomen normal. (5) Hyperbilirubinemia: Code(s): E80.6 - Other disorders of bilirubin metabolism Status: Acute Assessment and Plan: * See plan for 4. * Bilirubin elevated at 2.8. * No appreciated icterus or jaundice. * Await results ultrasound. 05/22/24: * Remains elevated at 2.7 today up from 2.4. * Pt has no GB. and US RUQ unremarkable from yesterday. * Continue to monitor and consider GI consult. (6) Bandemia: Code(s): D72.825 - Bandemia Status: Acute Assessment and Plan: * No leukocytosis appreciated 17% bands were noted on CBC differential. * Patient without any acute signs or symptoms of an acute bacterial infection based off objective imaging thus far. * Continue broad-spectrum antibiotics at this time of vancomycin and Zosyn. * Blood cultures x2 are pending. * Urinalysis without any evidence of UTI. * Chest x-ray showing mild pulmonary edema with trace pleural effusio * Trend CBC 05/22/24: * Bandemia continuing to increas
--- NOTE | 2024-05-22 12:00 | PM.IMPN ---
Progress Note: A&P Assessment and Plan (1) Acute dehydration: Code(s): E86.0 - Dehydration Status: Acute Assessment and Plan: As evidenced by labs showing sodium of 122 and chloride of 88. Suspect secondary to nausea, vomiting and diarrhea which prompted patient to present to the emergency room. LR changed today to normal saline as 75 mL/hour to provide for increased sodium and decrease rate to help prevent further exacerbation of heart failure. Continue to monitor labs and trend Continue to monitor vital signs. Patient tolerating diabetic diet. 05/22/24: Slow improvement in her Sodium level with IVF of NS at 75 ml/hr. It is 125 today up from 122. No further N/V/D. Continue to monitor labs and vitals trends. (2) Acute hyponatremia: Code(s): E87.1 - Hypo-osmolality and hyponatremia Status: Acute Assessment and Plan: Suspect cause is dehydration secondary to nausea, vomiting and diarrhea leading to insensible loss. Check urine osmolality and urine sodium. Slower replacement of sodium with normal saline at 75 mL/hour to further avoid exacerbation of heart failure Continue to monitor and trend labs and vital signs. 05/22/24: Urine sodium is <5, and urine osmolality is still pending. There does not appear to be insensible loss of sodium in the urine. Continue to monitor Sodium levels. (3) Atrial fibrillation: Code(s): I48.91 - Unspecified atrial fibrillation Status: Chronic Assessment and Plan: Chronic in nature. Continue carvedilol 25 mg q.12 hours for rate control Continue Cardizem 30 mg q.8 hours Continue Xarelto 20 mg daily for chronic anticoagulation. Continue telemetry 05/22/24: Continue telemetry, Carvedilol, Cardizem, Xarelto. Currently in NSR today. (4) Transaminitis: Code(s): R74.01 - Elevation of levels of liver transaminase levels Status: Acute Assessment and Plan: As noted per ER labs patient with AST of 127 and ALT of 85. CT abdomen pelvis in emergency room that was performed unremarkable for causation. CT showed small sliding hiatal hernia only. Given patient's symptoms of vomiting and nausea as well as abdominal pain, will obtain ultrasound of the abdomen. Avoid Tylenol. Trend CMP. If acute worsening consider GI consult. 05/22/24: AST decreased from 127 to 83 today ALT with improvement of 85 to 77 today. Non-specific elevation of transaminases. Continue to trend. Consider GI consult. US abdomen normal. (5) Hyperbilirubinemia: Code(s): E80.6 - Other disorders of bilirubin metabolism Status: Acute Assessment and Plan: See plan for 4. Bilirubin elevated at 2.8. No appreciated icterus or jaundice. Await results ultrasound. 05/22/24: Remains elevated at 2.7 today up from 2.4. Pt has no GB. and US RUQ unremarkable from yesterday. Continue to monitor and consider GI consult. (6) Bandemia: Code(s): D72.825 - Bandemia Status: Acute Assessment and Plan: No leukocytosis appreciated 17% bands were noted on CBC differential. Patient without any acute signs or symptoms of an acute bacterial infection based off objective imaging thus far. Continue broad-spectrum antibiotics at this time of vancomycin and Zosyn. Blood cultures x2 are pending. Urinalysis without any evidence of UTI. Chest x-ray showing mild pulmonary edema with trace pleural effusio Trend CBC 05/22/24: Bandemia continuing to increase from 17 to 39. Normal WBC count at 5.2. No abnormal findings on UA to explain bandemia. No s/s of acute findings on CXR to explain bandemia. Given pt's complaint of persistent neck pain and headache, consider LP. Concern for developing Sepsis. Continue to monitor trend labs Continue Vancomycin and Zosyn therapies. Add Flagyl to abx. + Bacteremic with staph aureus growing out of two culture bottles and Gram positive cocci out of another. (7) Abdominal p
[2024-05-22] MEDS: INSULIN ASPART (*BKC) 100 UNITS/ML 10 UNITS SUB-Q ×2 (12:46→17:41)
--- NOTE | 2024-05-22 13:24 | PCPTNOTE ---
On 05/22/24, the student, [Fidelia Little], provided care and completed [facility] documentation on this patient. I have reviewed the student's documentation and agree with the findings.
[2024-05-22 13:36] LABS: Vancomycin Trough 9.1 ug/mL (10.0-20.0)
[2024-05-22] MEDS: VANCOMYCIN 1,750 MG/NS 500 ML 1,750 MG/500 ML BAG 250 MG IVPB (14:22)
[2024-05-22] MEDS: metroNIDAZOLE 500 MG/ISO 100ML 500 MG/100 ML BAG 100 MG IVPB ×2 (14:22→21:19)
[2024-05-22 15:59] LABS: Osmolality, Urine 772 mOsm/kg (50-1200)
--- NOTE | 2024-05-22 16:00 | PC.NURSE ---
RN gave update to [place] via telephone on patient status.
[2024-05-22 17:34] LABS: Glucose Point of Care 169 mg/dl (65-105)
[2024-05-22] MEDS: RIVAROXABAN 20 MG TABLET PO (17:41)
[2024-05-22] MEDS: traMADol HCL (*CRX) 50 MG TABLET PO (17:48)
[2024-05-23] VITALS (12 sets, daily range): BP systolic 109–122; BP diastolic 45–68; PULSE 84–97; RESP 16–20; TEMP 36.2–36.6; O2SAT 93–99
[2024-05-23] MEDS: PIPERACILLN/TAZ 3.375GM/NS50ML 3.375 GM/50 ML BAG IVPB ×3 (00:36→11:54)
[2024-05-23] MEDS: traMADol HCL (*CRX) 50 MG TABLET PO (00:41)
[2024-05-23] MEDS: VANCOMYCIN 1,750 MG/NS 500 ML 1,750 MG/500 ML BAG 250 MG IVPB ×2 (01:06→13:47)
[2024-05-23] MEDS: metroNIDAZOLE 500 MG/ISO 100ML 500 MG/100 ML BAG 100 MG IVPB ×2 (05:20→13:45)
[2024-05-23] MEDS: LEVOTHYROXINE SODIUM 75 MCG TABLET PO (05:23)
[2024-05-23] MEDS: HYDROcodone/acetaminophen (*CRX) 5-325 MG TABLET 1 TAB PO ×2 (05:26→17:00)
[2024-05-23 05:42] LABS: Glucose Point of Care 218 mg/dl (65-105)
[2024-05-23 06:09] LABS: Estimated CRCL calculation 84 ml/min; Estimated Glomerular Filt Rate > 60
[2024-05-23 08:11] LABS: Glucose Point of Care 120 mg/dl (65-105)
--- NOTE | 2024-05-23 11:14 | PC.NURSE ---
Patient has been sleeping all morning. Wants to wait to take medications.
[2024-05-23 11:43] LABS: Hematocrit 37.7 % (37.0-47.0); Hemoglobin 12.7 g/dL (12.0-15.0); Immature Platelet Fraction Pct 7.9 % (0.9-11.2); Mean Corpuscular HGB Conc 33.7 g/dl (32-36); Mean Corpuscular Hemoglobin 33.3 pg (26-34); Mean Platelet Volume 11.5 fl (7.4-10.4); Platelet Count Result 79 k/mm3 (150-375); Red Blood Count 3.81 M/mm3 (4.2-5.4); Red Cell Distribution Width 13.2 % (11.5-14.5)
[2024-05-23] MEDS: NORTRIPTYLINE HCL 10 MG CAPSULE PO (11:54)
[2024-05-23] MEDS: EMPAGLIFLOZIN 25 MG TABLET BY MOUTH (11:54)
[2024-05-23] MEDS: FUROSEMIDE 40 MG TABLET PO (11:54)
[2024-05-23] MEDS: ESCITALOPRAM OXALATE 10 MG TABLET PO (11:54)
[2024-05-23] MEDS: PANTOPRAZOLE 40 MG TABLET PO (11:54)
[2024-05-23] MEDS: DOCUSATE SODIUM 100 MG CAPSULE PO ×2 (11:54→17:00)
[2024-05-23] MEDS: POTASSIUM CHLORIDE 20 MEQ ER TABLET PO (11:54)
[2024-05-23] MEDS: SACUBITRIL/VALSARTAN 24-26 MG TABLET 1 TAB PO ×2 (11:54→20:30)
[2024-05-23] MEDS: FERROUS SULFATE 325 MG TABLET DR PO (11:54)
[2024-05-23 11:55] LABS: Anion Gap 7 mmol/L (4-12); Blood Urea Nitrogen 27 mg/dL (7-17); Carbon Dioxide 24 mmol/L (22-30); Chloride 93 mmol/L (98-107); Estimated CRCL calculation 86 ml/min; Estimated Glomerular Filt Rate > 60; Glucose 121 mg/dL (65-110); Potassium 3.5 mmol/L (3.4-5.0); Sodium 124 mmol/L (137-145)
[2024-05-23] MEDS: carvediloL 6.25 MG TABLET PO ×2 (11:57→20:30)
[2024-05-23 12:02] LABS: Glucose Point of Care 125 mg/dl (65-105)
[2024-05-23] MEDS: ceFAZolin 2 GM/D5W 50 ML 2 GM/50 ML BAG IVPB ×2 (14:32→20:27)
[2024-05-23] MEDS: RIVAROXABAN 20 MG TABLET PO (17:00)
[2024-05-23 17:45] LABS: Glucose Point of Care 192 mg/dl (65-105)
--- NOTE | 2024-05-23 19:55 | P.PNIM_ITS ---
Progress Note: A&P Assessment and Plan (1) Acute dehydration: Code(s): E86.0 - Dehydration Status: Acute Assessment and Plan: * As evidenced by labs showing sodium of 122 and chloride of 88. * Suspect secondary to nausea, vomiting and diarrhea which prompted patient to present to the emergency room. * LR changed today to normal saline as 75 mL/hour to provide for increased sodium and decrease rate to help prevent further exacerbation of heart failure. * Continue to monitor labs and trend * Continue to monitor vital signs. * Patient tolerating diabetic diet. 05/22/24: * Slow improvement in her Sodium level with IVF of NS at 75 ml/hr. It is 125 today up from 122. * No further N/V/D. * Continue to monitor labs and vitals trends. * * 05/23/24: * - IVF discontinued. * - Contiinue to monitor labs closely. (2) Bacteremia: Code(s): R78.81 - Bacteremia Status: Acute Assessment and Plan: * Bandemia continuing to increase from 17 to 39. * Normal WBC count at 5.2. * No abnormal findings on UA to explain bandemia. * No s/s of acute findings on CXR to explain bandemia. * Given pt's complaint of persistent neck pain and headache, consider LP. * Concern for developing Sepsis. * Continue to monitor trend labs * Continue Vancomycin and Zosyn therapies. * Add Flagyl to abx. * + Bacteremic with staph aureus growing out of two culture bottles and Gram positive cocci out of another. Awaiting sensitivity. * 05/23/24 - Currently on Cefazolin. - Investment Banking Associate consulted for possible CHANCE. Patient also with Pacemaker. - Continue current abx. (3) Acute hyponatremia: Code(s): E87.1 - Hypo-osmolality and hyponatremia Status: Acute Assessment and Plan: * Suspect cause is dehydration secondary to nausea, vomiting and diarrhea leading to insensible loss. * Check urine osmolality and urine sodium. * Slower replacement of sodium with normal saline at 75 mL/hour to further avoid exacerbation of heart failure * Continue to monitor and trend labs and vital signs. 05/22/24: * Urine sodium is <5, and urine osmolality is still pending. * There does not appear to be insensible loss of sodium in the urine. * Continue to monitor Sodium levels. * 05/23/24: - Possibly chronic. - Continue to monitor closely. - Hold IVF for now. (4) Thrombocytopenia: Code(s): D69.6 - Thrombocytopenia, unspecified Status: Acute Assessment and Plan: * Sudden drop today in Platelets from 109-->68-->76 * No bleeding noted. * No plavix or ASA ordered. * Pt is on Xarelto. Consider holding if any bleeding or worsening. * Continue to monitor daily labs. * * 05/23/24: * - Appears stable and starting to trend up. * - Continue to trend. * - Continue to monitor for bleeding signs. (5) Atrial fibrillation: Code(s): I48.91 - Unspecified atrial fibrillation Status: Chronic Assessment and Plan: * Chronic in nature. * Continue carvedilol 25 mg q.12 hours for rate control * Continue Cardizem 30 mg q.8 hours * Continue Xarelto 20 mg daily for chronic anticoagulation. * Continue telemetry 05/22/24: * Continue telemetry, Carvedilol, Cardizem, Xarelto. * 05/23/24 * Maintains SR. (6) Transaminitis: Code(s): R74.01 - Elevation of levels of liver transaminase levels Status: Acute Assessment and Plan: * As noted per ER labs patient with AST of 127 and ALT of 85. * CT abdomen pelvis in emergency room that was performed unremarkable for cau
--- NOTE | 2024-05-23 19:55 | PM.IMPN ---
Progress Note: A&P Assessment and Plan (1) Acute dehydration: Code(s): E86.0 - Dehydration Status: Acute Assessment and Plan: As evidenced by labs showing sodium of 122 and chloride of 88. Suspect secondary to nausea, vomiting and diarrhea which prompted patient to present to the emergency room. LR changed today to normal saline as 75 mL/hour to provide for increased sodium and decrease rate to help prevent further exacerbation of heart failure. Continue to monitor labs and trend Continue to monitor vital signs. Patient tolerating diabetic diet. 05/22/24: Slow improvement in her Sodium level with IVF of NS at 75 ml/hr. It is 125 today up from 122. No further N/V/D. Continue to monitor labs and vitals trends. 05/23/24: - IVF discontinued. - Contiinue to monitor labs closely. (2) Bacteremia: Code(s): R78.81 - Bacteremia Status: Acute Assessment and Plan: Bandemia continuing to increase from 17 to 39. Normal WBC count at 5.2. No abnormal findings on UA to explain bandemia. No s/s of acute findings on CXR to explain bandemia. Given pt's complaint of persistent neck pain and headache, consider LP. Concern for developing Sepsis. Continue to monitor trend labs Continue Vancomycin and Zosyn therapies. Add Flagyl to abx. + Bacteremic with staph aureus growing out of two culture bottles and Gram positive cocci out of another. Awaiting sensitivity. 05/23/24 - Currently on Cefazolin. - Preschool Substitute Teacher consulted for possible CHANCE. Patient also with Pacemaker. - Continue current abx. (3) Acute hyponatremia: Code(s): E87.1 - Hypo-osmolality and hyponatremia Status: Acute Assessment and Plan: Suspect cause is dehydration secondary to nausea, vomiting and diarrhea leading to insensible loss. Check urine osmolality and urine sodium. Slower replacement of sodium with normal saline at 75 mL/hour to further avoid exacerbation of heart failure Continue to monitor and trend labs and vital signs. 05/22/24: Urine sodium is <5, and urine osmolality is still pending. There does not appear to be insensible loss of sodium in the urine. Continue to monitor Sodium levels. 05/23/24: - Possibly chronic. - Continue to monitor closely. - Hold IVF for now. (4) Thrombocytopenia: Code(s): D69.6 - Thrombocytopenia, unspecified Status: Acute Assessment and Plan: Sudden drop today in Platelets from 109-->68-->76 No bleeding noted. No plavix or ASA ordered. Pt is on Xarelto. Consider holding if any bleeding or worsening. Continue to monitor daily labs. 05/23/24: - Appears stable and starting to trend up. - Continue to trend. - Continue to monitor for bleeding signs. (5) Atrial fibrillation: Code(s): I48.91 - Unspecified atrial fibrillation Status: Chronic Assessment and Plan: Chronic in nature. Continue carvedilol 25 mg q.12 hours for rate control Continue Cardizem 30 mg q.8 hours Continue Xarelto 20 mg daily for chronic anticoagulation. Continue telemetry 05/22/24: Continue telemetry, Carvedilol, Cardizem, Xarelto. 05/23/24 Maintains SR. (6) Transaminitis: Code(s): R74.01 - Elevation of levels of liver transaminase levels Status: Acute Assessment and Plan: As noted per ER labs patient with AST of 127 and ALT of 85. CT abdomen pelvis in emergency room that was performed unremarkable for causation. CT showed small sliding hiatal hernia only. Given patient's symptoms of vomiting and nausea as well as abdominal pain, will obtain ultrasound of the abdomen. Avoid Tylenol. Trend CMP. If acute worsening consider GI consult. 05/22/24: AST decreased from 127 to 83 today ALT with improvement of 85 to 77 today. Non-specific elevation of transaminases. Continue to trend. Consider GI consult. US abdomen normal. 05/23/24: - Appear stable. - Possibly 2'/2 CHF. -
[2024-05-23] MEDS: dilTIAZem HCL 30 MG TABLET PO (20:31)
[2024-05-24] VITALS (11 sets, daily range): BP systolic 120–129; BP diastolic 60–75; PULSE 57–89; RESP 16–18; TEMP 36.3–37.1; O2SAT 92–96
[2024-05-24 00:16] LABS: Glucose Point of Care 262 mg/dl (65-105)
[2024-05-24] MEDS: HYDROcodone/acetaminophen (*CRX) 5-325 MG TABLET 1 TAB PO (01:13)
[2024-05-24] MEDS: LEVOTHYROXINE SODIUM 75 MCG TABLET PO (06:26)
[2024-05-24] MEDS: dilTIAZem HCL 30 MG TABLET PO ×3 (06:27→20:26)
[2024-05-24] MEDS: ceFAZolin 2 GM/D5W 50 ML 2 GM/50 ML BAG IVPB ×3 (06:31→20:24)
[2024-05-24 08:13] LABS: Glucose Point of Care 137 mg/dl (65-105)
[2024-05-24 08:23] LABS: Hemoglobin 14.3 g/dL (12.0-15.0); Immature Platelet Fraction Pct 5.4 % (0.9-11.2); Mean Corpuscular HGB Conc 34.9 g/dl (32-36); Mean Corpuscular Hemoglobin 33.7 pg (26-34); Mean Corpuscular Volume 96.7 fl (80-100); Mean Platelet Volume 10.2 fl (7.4-10.4); Platelet Count Result 109 k/mm3 (150-375); Red Blood Count 4.24 M/mm3 (4.2-5.4); Red Cell Distribution Width 13.5 % (11.5-14.5); White Blood Count 12.6 K/mm3 (4.5-10.0)
[2024-05-24 08:34] LABS: Anion Gap 12 mmol/L (4-12); Blood Urea Nitrogen 18 mg/dL (7-17); Calcium 8.2 mg/dL (8.4-10.2); Carbon Dioxide 25 mmol/L (22-30); Chloride 90 mmol/L (98-107); Estimated CRCL calculation 98 ml/min; Estimated Glomerular Filt Rate > 60; Glucose 121 mg/dL (65-110); Potassium 3.5 mmol/L (3.4-5.0); Sodium 127 mmol/L (137-145)
[2024-05-24] MEDS: FERROUS SULFATE 325 MG TABLET DR PO (09:08)
[2024-05-24] MEDS: DOCUSATE SODIUM 100 MG CAPSULE PO ×2 (09:08→17:42)
[2024-05-24] MEDS: POTASSIUM CHLORIDE 20 MEQ ER TABLET PO (09:08)
[2024-05-24] MEDS: PANTOPRAZOLE 40 MG TABLET PO (09:08)
[2024-05-24] MEDS: ESCITALOPRAM OXALATE 10 MG TABLET PO (09:08)
[2024-05-24] MEDS: EMPAGLIFLOZIN 25 MG TABLET BY MOUTH (09:08)
[2024-05-24] MEDS: FUROSEMIDE 40 MG TABLET PO (09:08)
[2024-05-24] MEDS: NORTRIPTYLINE HCL 10 MG CAPSULE PO (09:08)
[2024-05-24] MEDS: SACUBITRIL/VALSARTAN 24-26 MG TABLET 1 TAB PO ×2 (09:08→20:25)
[2024-05-24] MEDS: carvediloL 6.25 MG TABLET PO ×2 (09:10→20:25)
[2024-05-24] MEDS: INSULIN GLARGINE (*BKC) 100 UNITS/ML 18 UNITS SUB-Q (09:12)
[2024-05-24 12:05] LABS: Glucose Point of Care 222 mg/dl (65-105)
[2024-05-24] MEDS: traMADol HCL (*CRX) 50 MG TABLET PO (12:25)
[2024-05-24] MEDS: INSULIN ASPART (*BKC) 100 UNITS/ML 10 UNITS SUB-Q ×2 (12:26→17:43)
--- NOTE | 2024-05-24 13:45 | P.PNIM_ITS ---
Progress Note: A&P Assessment and Plan (1) Bacteremia: Code(s): R78.81 - Bacteremia Status: Acute Assessment and Plan: 05/24/24 * WBC slightly elevated. * Possibly related to bacteremia vs reactive. * No s/s of acute findings on CXR. * No concern for Sepsis. * Continue to trend labs. * Blood-cultures growing staph aureus X4 bottles. * Continue Vancomycin and Ancef for now per sensitivities. 05/23/24 - Currently on Cefazolin and VAncomycin. - [place] Nitrator Operator consulted to r/o bacterial endocarditis. Patient also with Pacemaker. - Continue current abx. (2) Acute dehydration: Code(s): E86.0 - Dehydration Status: Acute Assessment and Plan: 05/24/24: - Appears resolved. - IVF discontinued. * As evidenced by labs showing sodium of 122 and chloride of 88. * Suspect secondary to nausea, vomiting and diarrhea which prompted patient to present to the emergency room. * LR changed today to normal saline as 75 mL/hour to provide for increased sodium and decrease rate to help prevent further exacerbation of heart failure. * Continue to monitor labs and trend * Continue to monitor vital signs. * Patient tolerating diabetic diet. 05/22/24: * Slow improvement in her Sodium level with IVF of NS at 75 ml/hr. It is 125 today up from 122. * No further N/V/D. * Continue to monitor labs and vitals trends. * * 05/23/24: * - IVF discontinued. * - Contiinue to monitor labs closely. (3) Acute hyponatremia: Code(s): E87.1 - Hypo-osmolality and hyponatremia Status: Acute Assessment and Plan: * Suspect cause is dehydration secondary to nausea, vomiting and diarrhea leading to insensible loss. * Check urine osmolality and urine sodium. * Slower replacement of sodium with normal saline at 75 mL/hour to further avoid exacerbation of heart failure * Continue to monitor and trend labs and vital signs. 05/22/24: * Urine sodium is <5, and urine osmolality is still pending. * There does not appear to be insensible loss of sodium in the urine. * Continue to monitor Sodium levels. * 05/23/24: - Possibly chronic. - Continue to monitor closely. - Hold IVF for now. 05/24/24: - Possibly chronic related to CHF. - Continue to monitor closely off IVF. (4) Thrombocytopenia: Code(s): D69.6 - Thrombocytopenia, unspecified Status: Acute Assessment and Plan: * Sudden drop today in Platelets from 109-->68-->76 * No bleeding noted. * No plavix or ASA ordered. * Pt is on Xarelto. Consider holding if any bleeding or worsening. * Continue to monitor daily labs. * * 05/23/24: * - Appears stable and starting to trend up. * - Continue to trend. * - Continue to monitor for bleeding signs. * 05/24/24: - Levels appear stable. - No bleeding signs noted. - Monitor closely. (5) Atrial fibrillation: Code(s): I48.91 - Unspecified atrial fibrillation Status: Chronic Assessment and Plan: * Chronic in nature. * Continue carvedilol 25 mg q.12 hours for rate control * Continue Cardizem 30 mg q.8 hours * Continue Xarelto 20 mg daily for chronic anticoagulation. * Continue telemetry 05/22/24: * Continue telemetry, Carvedilol, Cardizem, Xarelto. * 05/23/24 * Maintains SR. * 05/24/24: - Currently in SR. - Continue Carvedilol, Cardizem, Xarelto. (6) Transaminitis: Code(s): R74.01 - Elevation of levels of liver transaminase levels Status: Acute Assessment and
--- NOTE | 2024-05-24 13:45 | PM.IMPN ---
Progress Note: A&P Assessment and Plan (1) Bacteremia: Code(s): R78.81 - Bacteremia Status: Acute Assessment and Plan: 05/24/24 WBC slightly elevated. Possibly related to bacteremia vs reactive. No s/s of acute findings on CXR. No concern for Sepsis. Continue to trend labs. Blood-cultures growing staph aureus X4 bottles. Continue Vancomycin and Ancef for now per sensitivities. 05/23/24 - Currently on Cefazolin and VAncomycin. - Multimedia Engineer consulted to r/o bacterial endocarditis. Patient also with Pacemaker. - Continue current abx. (2) Acute dehydration: Code(s): E86.0 - Dehydration Status: Acute Assessment and Plan: 05/24/24: - Appears resolved. - IVF discontinued. As evidenced by labs showing sodium of 122 and chloride of 88. Suspect secondary to nausea, vomiting and diarrhea which prompted patient to present to the emergency room. LR changed today to normal saline as 75 mL/hour to provide for increased sodium and decrease rate to help prevent further exacerbation of heart failure. Continue to monitor labs and trend Continue to monitor vital signs. Patient tolerating diabetic diet. 05/22/24: Slow improvement in her Sodium level with IVF of NS at 75 ml/hr. It is 125 today up from 122. No further N/V/D. Continue to monitor labs and vitals trends. 05/23/24: - IVF discontinued. - Contiinue to monitor labs closely. (3) Acute hyponatremia: Code(s): E87.1 - Hypo-osmolality and hyponatremia Status: Acute Assessment and Plan: Suspect cause is dehydration secondary to nausea, vomiting and diarrhea leading to insensible loss. Check urine osmolality and urine sodium. Slower replacement of sodium with normal saline at 75 mL/hour to further avoid exacerbation of heart failure Continue to monitor and trend labs and vital signs. 05/22/24: Urine sodium is <5, and urine osmolality is still pending. There does not appear to be insensible loss of sodium in the urine. Continue to monitor Sodium levels. 05/23/24: - Possibly chronic. - Continue to monitor closely. - Hold IVF for now. 05/24/24: - Possibly chronic related to CHF. - Continue to monitor closely off IVF. (4) Thrombocytopenia: Code(s): D69.6 - Thrombocytopenia, unspecified Status: Acute Assessment and Plan: Sudden drop today in Platelets from 109-->68-->76 No bleeding noted. No plavix or ASA ordered. Pt is on Xarelto. Consider holding if any bleeding or worsening. Continue to monitor daily labs. 05/23/24: - Appears stable and starting to trend up. - Continue to trend. - Continue to monitor for bleeding signs. 05/24/24: - Levels appear stable. - No bleeding signs noted. - Monitor closely. (5) Atrial fibrillation: Code(s): I48.91 - Unspecified atrial fibrillation Status: Chronic Assessment and Plan: Chronic in nature. Continue carvedilol 25 mg q.12 hours for rate control Continue Cardizem 30 mg q.8 hours Continue Xarelto 20 mg daily for chronic anticoagulation. Continue telemetry 05/22/24: Continue telemetry, Carvedilol, Cardizem, Xarelto. 05/23/24 Maintains SR. 05/24/24: - Currently in SR. - Continue Carvedilol, Cardizem, Xarelto. (6) Transaminitis: Code(s): R74.01 - Elevation of levels of liver transaminase levels Status: Acute Assessment and Plan: As noted per ER labs patient with AST of 127 and ALT of 85. CT abdomen pelvis in emergency room that was performed unremarkable for causation. CT showed small sliding hiatal hernia only. Given patient's symptoms of vomiting and nausea as well as abdominal pain, will obtain ultrasound of the abdomen. Avoid Tylenol. Trend CMP. If acute worsening consider GI consult. 05/22/24: AST decreased from 127 to 83 today ALT with improvement of 85 to 77 today. Non-specific elevation of transaminases. Continue t
--- NOTE | 2024-05-24 15:14 | P.CDI_ITS ---
CDI Query Clarification Request Please specify type and acuity of heart failure if known. Risk Factors: obesity, a-fib Clinical Indicators: CXR on 05/21 shows pulmonary edema, echo with contrast on 05/21 shows moderately reduced LVSF at 35-40%. Treatment: Jardiance, Entresto and Lasix. * Acute * Chronic * Acute on Chronic * Unknown * Systolic * Diastolic * Combined Systolic and Diastolic * Unknown <Irma Sanchez RN - Last Filed: 05/24/24 15:19> Provider Comments Chronic, unknown type <Chuckie Stewart NP - Last Filed: 05/25/24 07:14>
[2024-05-24 17:29] LABS: Glucose Point of Care 137 mg/dl (65-105)
[2024-05-24] MEDS: RIVAROXABAN 20 MG TABLET PO (17:42)
[2024-05-25] VITALS (12 sets, daily range): BP systolic 119–137; BP diastolic 72–79; PULSE 78–96; RESP 18–20; TEMP 36.3–36.5; O2SAT 96–98
[2024-05-25] MEDS: traMADol HCL (*CRX) 50 MG TABLET PO ×2 (01:46→14:02)
[2024-05-25] MEDS: ceFAZolin 2 GM/D5W 50 ML 2 GM/50 ML BAG IVPB ×3 (05:55→20:31)
[2024-05-25] MEDS: LEVOTHYROXINE SODIUM 75 MCG TABLET PO (05:55)
[2024-05-25] MEDS: dilTIAZem HCL 30 MG TABLET PO ×3 (05:55→20:33)
[2024-05-25 06:46] LABS: Glucose Point of Care 127 mg/dl (65-105)
[2024-05-25 08:42] LABS: Glucose Point of Care 108 mg/dl (65-105)
[2024-05-25] MEDS: FERROUS SULFATE 325 MG TABLET DR PO (09:05)
[2024-05-25] MEDS: DOCUSATE SODIUM 100 MG CAPSULE PO ×2 (09:05→17:22)
[2024-05-25] MEDS: SACUBITRIL/VALSARTAN 24-26 MG TABLET 1 TAB PO ×2 (09:05→20:33)
[2024-05-25] MEDS: EMPAGLIFLOZIN 25 MG TABLET BY MOUTH (09:05)
[2024-05-25] MEDS: NORTRIPTYLINE HCL 10 MG CAPSULE PO (09:05)
[2024-05-25] MEDS: ESCITALOPRAM OXALATE 10 MG TABLET PO (09:05)
[2024-05-25] MEDS: PANTOPRAZOLE 40 MG TABLET PO (09:05)
[2024-05-25] MEDS: FUROSEMIDE 40 MG TABLET PO (09:05)
[2024-05-25] MEDS: POTASSIUM CHLORIDE 20 MEQ ER TABLET PO (09:05)
[2024-05-25] MEDS: carvediloL 6.25 MG TABLET PO ×2 (09:07→20:33)
[2024-05-25] MEDS: INSULIN GLARGINE (*BKC) 100 UNITS/ML 18 UNITS SUB-Q (09:11)
[2024-05-25] MEDS: INSULIN ASPART (*BKC) 100 UNITS/ML 10 UNITS SUB-Q ×3 (09:12→17:23)
[2024-05-25 11:57] LABS: Glucose Point of Care 138 mg/dl (65-105)
--- NOTE | 2024-05-25 13:22 | PM.CNCAR ---
Assessment and Plan Assessment and plan (1) Bacteremia: Code(s): R78.81 - Bacteremia Status: Acute Plan this is a difficult case of a 63-year-old woman who has obvious evidence of heart disease given her medical list on admission in the fact that she has a defibrillator but we have no records regarding her previous cardiac care/ diagnosis. The issue at hand is request to perform an esophageal ECHO because of 4 of 4 positive blood cultures for Staph aureus. Esophageal ECHO is very reasonable and appropriate. Because of her morbid obesity this should be done with coordination with anesthesia given her increased risk for deep sedation. We will try to arrange for this to be done on Tuesday. In the meantime we will try to obtain and request records from her established director of community education, Dr. Carolina Huang MD [facility] History of Present Illness History of Present Illness Consult date/time: 05/25/24 13:22 Reason For Visit: hypoNa, hypovolemia Narrative: this is a 63-year-old woman I am seeing in the hospital today at the request of the hospitalist to consider performing an esophageal ECHO. Patient is unknown to me and I think is essentially unknown to physicians here at [facility]. She is an extremely poor historian and most of the history is obtained from reviewing the record. She was hospitalized here on 05/20/2024 with a variety of complaints and she was reporting a history of intermittent fever. She was not febrile when she got to the emergency room but presumably because of this blood cultures were drawn. Blood cultures that were done on 05/20, 812 in 813 are all positive for Staph aureus. She has been treated with antibiotics intravenously since admission. The patient is not reporting any shaking chills or rigors she is not having any joint pain or skin lesions. She has a variety of symptoms including abdominal discomfort headache episodes of nausea and some diarrhea that was apparently going on prior to admission. Subsequent blood cultures were drawn and they are yet pending in terms of whether the infection has cleared. She apparently has a history of heart disease about which we do not have any information. She does remember that Dr. Carolina Flores in [place] as her director of community education she can not tell me about the cardiac problems for which she is seen. She does have a defibrillator and does have some LV systolic dysfunction noted on echo. Her medical regimen prior to admission includes Entresto, Xarelto, carvedilol and diltiazem. Her only complaint at this time is a posterior headache Review of Systems Review of Systems: ROS unobtainable: Yes unobtainable due to mental status PMFSH Past Medical History Medical History (Updated 05/22/24 @ 12:27 by ANNABEL Pedroza) Atrial fibrillation Bacteremia Diabetes GERD (gastroesophageal reflux disease) HTN (hypertension) Hypothyroidism Overactive bladder Pacemaker Thrombocytopenia Surgical History Surgical History AICD (automatic cardioverter/defibrillator) present Family History Family History Other Unknown family medical history Social History Social History Smoking status: Never smoker Alcohol intake: never Substance use: current Substance use type: marijuana Do You Feel Safe in your Home?: Yes Lack of Transportation: No Lack of Food: Never True Current Housing: I Have Housing Concerned About Future Housing: No Difficulty Paying Gas/Electric Bills: No Difficulty Paying for Meds: No Currently Unemployed: No Education: Grade School Difficulty w/ Childcare or Family Care: No Gender identity (if verbalized by the patient): Female Spiritual care concerns: No Meds Home Medications and Allergies Home Medications
--- NOTE | 2024-05-25 14:44 | P.PNIM_ITS ---
Progress Note: A&P Assessment and Plan (1) Bacteremia: Code(s): R78.81 - Bacteremia Status: Acute Assessment and Plan: 05/25/24: - Repeat blood cultures done. - Continue IV Vancomycin and Ancef. - Seen by insecticide mixer and possible CHANCE on Tuesday. - Follow repeat cultures. 05/24/24 * WBC slightly elevated. * Possibly related to bacteremia vs reactive. * No s/s of acute findings on CXR. * No concern for Sepsis. * Continue to trend labs. * Blood-cultures growing staph aureus X4 bottles. * Continue Vancomycin and Ancef for now per sensitivities. 05/23/24 - Currently on Cefazolin and VAncomycin. - Asset Protection Detective consulted to r/o bacterial endocarditis. Patient also with Pacemaker. - Continue current abx. (2) Acute dehydration: Code(s): E86.0 - Dehydration Status: Acute Assessment and Plan: 05/25/24: Resolved. 05/24/24: - Appears resolved. - IVF discontinued. * As evidenced by labs showing sodium of 122 and chloride of 88. * Suspect secondary to nausea, vomiting and diarrhea which prompted patient to present to the emergency room. * LR changed today to normal saline as 75 mL/hour to provide for increased sodium and decrease rate to help prevent further exacerbation of heart failure. * Continue to monitor labs and trend * Continue to monitor vital signs. * Patient tolerating diabetic diet. 05/22/24: * Slow improvement in her Sodium level with IVF of NS at 75 ml/hr. It is 125 today up from 122. * No further N/V/D. * Continue to monitor labs and vitals trends. * * 05/23/24: * - IVF discontinued. * - Contiinue to monitor labs closely. (3) Acute hyponatremia: Code(s): E87.1 - Hypo-osmolality and hyponatremia Status: Acute Assessment and Plan: * Suspect cause is dehydration secondary to nausea, vomiting and diarrhea leading to insensible loss. * Check urine osmolality and urine sodium. * Slower replacement of sodium with normal saline at 75 mL/hour to further avoid exacerbation of heart failure * Continue to monitor and trend labs and vital signs. 05/22/24: * Urine sodium is <5, and urine osmolality is still pending. * There does not appear to be insensible loss of sodium in the urine. * Continue to monitor Sodium levels. * 8/14/24: - Possibly chronic. - Continue to monitor closely. - Hold IVF for now. 05/24/24: - Possibly chronic related to CHF. - Continue to monitor closely off IVF. 05/25/24: - Possibly related to CHF. - Continue to monitor on Lasix. (4) Thrombocytopenia: Code(s): D69.6 - Thrombocytopenia, unspecified Status: Acute Assessment and Plan: * Sudden drop today in Platelets from 109-->68-->76 * No bleeding noted. * No plavix or ASA ordered. * Pt is on Xarelto. Consider holding if any bleeding or worsening. * Continue to monitor daily labs. * * 05/23/24: * - Appears stable and starting to trend up. * - Continue to trend. * - Continue to monitor for bleeding signs. * 05/24/24: - Levels appear stable. - No bleeding signs noted. - Monitor closely. 05/25/24: - Appear stable. - No bleeding signs noted. - Monitor. (5) Atrial fibrillation: Code(s): I48.91 - Unspecified atrial fibrillation Status: Chronic Assessment and Plan: * Chronic in nature. * Continue carvedilol 25 mg q.12 hours for rate control * Continue Cardizem 30 mg q.8 hours * Continue Xarelto 20 mg daily for chronic an
--- NOTE | 2024-05-25 14:44 | PM.IMPN ---
Progress Note: A&P Assessment and Plan (1) Bacteremia: Code(s): R78.81 - Bacteremia Status: Acute Assessment and Plan: 05/25/24: - Repeat blood cultures done. - Continue IV Vancomycin and Ancef. - Seen by supervisor filtration and possible CHANCE on Tuesday. - Follow repeat cultures. 05/24/24 WBC slightly elevated. Possibly related to bacteremia vs reactive. No s/s of acute findings on CXR. No concern for Sepsis. Continue to trend labs. Blood-cultures growing staph aureus X4 bottles. Continue Vancomycin and Ancef for now per sensitivities. 05/23/24 - Currently on Cefazolin and VAncomycin. - Chemical Process Operator consulted to r/o bacterial endocarditis. Patient also with Pacemaker. - Continue current abx. (2) Acute dehydration: Code(s): E86.0 - Dehydration Status: Acute Assessment and Plan: 05/25/24: Resolved. 05/24/24: - Appears resolved. - IVF discontinued. As evidenced by labs showing sodium of 122 and chloride of 88. Suspect secondary to nausea, vomiting and diarrhea which prompted patient to present to the emergency room. LR changed today to normal saline as 75 mL/hour to provide for increased sodium and decrease rate to help prevent further exacerbation of heart failure. Continue to monitor labs and trend Continue to monitor vital signs. Patient tolerating diabetic diet. 05/22/24: Slow improvement in her Sodium level with IVF of NS at 75 ml/hr. It is 125 today up from 122. No further N/V/D. Continue to monitor labs and vitals trends. 05/23/24: - IVF discontinued. - Contiinue to monitor labs closely. (3) Acute hyponatremia: Code(s): E87.1 - Hypo-osmolality and hyponatremia Status: Acute Assessment and Plan: Suspect cause is dehydration secondary to nausea, vomiting and diarrhea leading to insensible loss. Check urine osmolality and urine sodium. Slower replacement of sodium with normal saline at 75 mL/hour to further avoid exacerbation of heart failure Continue to monitor and trend labs and vital signs. 05/22/24: Urine sodium is <5, and urine osmolality is still pending. There does not appear to be insensible loss of sodium in the urine. Continue to monitor Sodium levels. 05/23/24: - Possibly chronic. - Continue to monitor closely. - Hold IVF for now. 05/24/24: - Possibly chronic related to CHF. - Continue to monitor closely off IVF. 05/25/24: - Possibly related to CHF. - Continue to monitor on Lasix. (4) Thrombocytopenia: Code(s): D69.6 - Thrombocytopenia, unspecified Status: Acute Assessment and Plan: Sudden drop today in Platelets from 109-->68-->76 No bleeding noted. No plavix or ASA ordered. Pt is on Xarelto. Consider holding if any bleeding or worsening. Continue to monitor daily labs. 05/23/24: - Appears stable and starting to trend up. - Continue to trend. - Continue to monitor for bleeding signs. 05/24/24: - Levels appear stable. - No bleeding signs noted. - Monitor closely. 05/25/24: - Appear stable. - No bleeding signs noted. - Monitor. (5) Atrial fibrillation: Code(s): I48.91 - Unspecified atrial fibrillation Status: Chronic Assessment and Plan: Chronic in nature. Continue carvedilol 25 mg q.12 hours for rate control Continue Cardizem 30 mg q.8 hours Continue Xarelto 20 mg daily for chronic anticoagulation. Continue telemetry 05/22/24: Continue telemetry, Carvedilol, Cardizem, Xarelto. 05/23/24 Maintains SR. 05/24/24: - Currently in SR. - Continue Carvedilol, Cardizem, Xarelto. 05/25/24: - Stable. Maintains SR. - Continue Carvedilol, Cardizem, Xarelto (6) Transaminitis: Code(s): R74.01 - Elevation of levels of liver transaminase levels Status: Acute Assessment and Plan: As noted per ER labs patient with AST of 127 and ALT of 85. CT abdomen pelvis in emergency
[2024-05-25 16:57] LABS: Glucose Point of Care 107 mg/dl (65-105)
[2024-05-25] MEDS: RIVAROXABAN 20 MG TABLET PO (17:22)
--- NOTE | 2024-05-25 18:02 | PC.NURSE ---
Per family, dye and chemical coordinator is Dr. Flores. ICD placement was 05/20/24. [phone]
[2024-05-25 20:12] LABS: Glucose Point of Care 155 mg/dl (65-105)
[2024-05-26] VITALS (11 sets, daily range): BP systolic 105–117; BP diastolic 50–55; PULSE 68–104; RESP 18–19; TEMP 36.6–36.8; O2SAT 90–93
[2024-05-26] MEDS: traMADol HCL (*CRX) 50 MG TABLET PO (00:25)
[2024-05-26 05:27] LABS: Glucose Point of Care 123 mg/dl (65-105)
[2024-05-26] MEDS: dilTIAZem HCL 30 MG TABLET PO ×3 (06:13→20:33)
[2024-05-26] MEDS: LEVOTHYROXINE SODIUM 75 MCG TABLET PO (06:13)
[2024-05-26] MEDS: ceFAZolin 2 GM/D5W 50 ML 2 GM/50 ML BAG IVPB ×3 (06:13→20:32)
[2024-05-26] MEDS: DOCUSATE SODIUM 100 MG CAPSULE PO ×2 (08:28→17:17)
[2024-05-26] MEDS: carvediloL 6.25 MG TABLET PO ×2 (08:28→20:33)
[2024-05-26] MEDS: NORTRIPTYLINE HCL 10 MG CAPSULE PO (08:29)
[2024-05-26] MEDS: ESCITALOPRAM OXALATE 10 MG TABLET PO (08:29)
[2024-05-26] MEDS: SACUBITRIL/VALSARTAN 24-26 MG TABLET 1 TAB PO ×2 (08:29→20:33)
[2024-05-26] MEDS: FUROSEMIDE 40 MG TABLET PO (08:29)
[2024-05-26] MEDS: FERROUS SULFATE 325 MG TABLET DR PO (08:29)
[2024-05-26] MEDS: EMPAGLIFLOZIN 25 MG TABLET BY MOUTH (08:29)
[2024-05-26] MEDS: POTASSIUM CHLORIDE 20 MEQ ER TABLET PO (08:29)
[2024-05-26] MEDS: PANTOPRAZOLE 40 MG TABLET PO (08:29)
[2024-05-26 08:31] LABS: Glucose Point of Care 111 mg/dl (65-105)
[2024-05-26] MEDS: INSULIN ASPART (*BKC) 100 UNITS/ML 10 UNITS SUB-Q ×3 (08:36→17:18)
[2024-05-26] MEDS: INSULIN GLARGINE (*BKC) 100 UNITS/ML 18 UNITS SUB-Q (08:36)
[2024-05-26 12:30] LABS: Glucose Point of Care 117 mg/dl (65-105)
[2024-05-26] MEDS: HYDROcodone/acetaminophen (*CRX) 5-325 MG TABLET 1 TAB PO (12:47)
--- NOTE | 2024-05-26 13:28 | PM.IMPN ---
Progress Note: A&P Assessment and Plan (1) Bacteremia: Code(s): R78.81 - Bacteremia Status: Acute Assessment and Plan: 05/25/24: - Repeat blood cultures done. - Continue IV Vancomycin and Ancef. - Seen by research center partner and possible CHANCE on Tuesday. - Follow repeat cultures. 05/24/24 WBC slightly elevated. Possibly related to bacteremia vs reactive. No s/s of acute findings on CXR. No concern for Sepsis. Continue to trend labs. Blood-cultures growing staph aureus X4 bottles. Continue Vancomycin and Ancef for now per sensitivities. 05/23/24 - Currently on Cefazolin and VAncomycin. - Syrup Shed Supervisor consulted to r/o bacterial endocarditis. Patient also with Pacemaker. - Continue current abx. 05/26/24: - Continues abx therapy; Cefazolin and Vancomycin. - Possible CHANCE in 2 days per research center partner. - Repeat blood-cultures done yesterday and pending results. (2) Acute dehydration: Code(s): E86.0 - Dehydration Status: Acute Assessment and Plan: - Resolved. (3) Acute hyponatremia: Code(s): E87.1 - Hypo-osmolality and hyponatremia Status: Acute Assessment and Plan: Suspect cause is dehydration secondary to nausea, vomiting and diarrhea leading to insensible loss. Check urine osmolality and urine sodium. Slower replacement of sodium with normal saline at 75 mL/hour to further avoid exacerbation of heart failure Continue to monitor and trend labs and vital signs. 05/22/24: Urine sodium is <5, and urine osmolality is still pending. There does not appear to be insensible loss of sodium in the urine. Continue to monitor Sodium levels. 05/23/24: - Possibly chronic. - Continue to monitor closely. - Hold IVF for now. 05/24/24: - Possibly chronic related to CHF. - Continue to monitor closely off IVF. 05/25/24: - Possibly related to CHF. - Continue to monitor on Lasix. 05/26/24: - Stable. - Possibly related to CHF. - Asymptomatic. - Continue to trend. (4) Thrombocytopenia: Code(s): D69.6 - Thrombocytopenia, unspecified Status: Acute Assessment and Plan: - Levels appear stable. - No bleeding signs noted. - Continue to monitor closely. (5) Atrial fibrillation: Code(s): I48.91 - Unspecified atrial fibrillation Status: Chronic Assessment and Plan: - Stable. Maintains SR. - Continue Carvedilol, Cardizem, Xarelto (6) Transaminitis: Code(s): R74.01 - Elevation of levels of liver transaminase levels Status: Acute Assessment and Plan: - CT abdomen pelvis on admission fairly unremarkable, only showing small sliding hiatal hernia. - Possibly 2'/2 CHF. - Appears stable. - Continue to monitor trend. (7) Hyperbilirubinemia: Code(s): E80.6 - Other disorders of bilirubin metabolism Status: Acute Assessment and Plan: - Stable. - Possibly 2'/2 CHF vs meds vs other. - Continue to monitor trend. (8) Bandemia: Code(s): D72.825 - Bandemia Status: Acute Assessment and Plan: - Patient without any acute signs or symptoms of active infectious process. - UA without any evidence of UTI. - CXR showing mild pulmonary edema with trace pleural effusion. - Possibly related to bacteremia. - Blood-cultures growing Staph aureus X4 bottles. - Continue Vancomycin and Cefazolin per sensitivities. - Repeat blood-cultures pending results. (9) Abdominal pain: Code(s): R10.9 - Unspecified abdominal pain Status: Acute Assessment and Plan: - Intermittent and possibly chronic; ?gastroparesis vs other. - CT abdomen pelvis without any evidence acute intra-abdominal process. - US RUQ normal. - Tolerating regular food ok. - Supportive care for now. recurrence of nausea, vomiting or diarrhea. (10) Pulmonary edema: Code(s): J81.1 - Chronic pulmonary
[2024-05-26] MEDS: IBUPROFEN 600 MG TABLET PO (14:00)
--- NOTE | 2024-05-26 16:59 | PC.NURSE ---
Dr Stewart notified patient c/o right ear pain.
[2024-05-26 17:09] LABS: Glucose Point of Care 134 mg/dl (65-105)
[2024-05-26] MEDS: RIVAROXABAN 20 MG TABLET PO (17:17)
[2024-05-26 20:51] LABS: Glucose Point of Care 209 mg/dl (65-105)
[2024-05-27] VITALS (13 sets, daily range): BP systolic 110–144; BP diastolic 53–84; PULSE 79–106; RESP 16–18; TEMP 36.3–36.7; O2SAT 95–98
[2024-05-27] MEDS: LEVOTHYROXINE SODIUM 75 MCG TABLET PO (06:09)
[2024-05-27] MEDS: dilTIAZem HCL 30 MG TABLET PO ×2 (06:09→21:24)
[2024-05-27] MEDS: ceFAZolin 2 GM/D5W 50 ML 2 GM/50 ML BAG IVPB ×3 (06:10→21:25)
[2024-05-27 08:30] LABS: Glucose Point of Care 186 mg/dl (65-105)
--- NOTE | 2024-05-27 08:58 | PM.PNCARD ---
Progress Note: A&P Assessment and Plan (1) Bacteremia: Code(s): R78.81 - Bacteremia Status: Acute Plan 63-year-old lady with positive blood cultures for Staph aureus planning for CHANCE with anesthesia tomorrow. Patient is unknown to us prior to this admission. Records from her established real estate operations manager demonstrate evidence of a nonischemic cardiomyopathy with ejection fraction running about 40%. Angiography demonstrated non disease coronary arteries. She also has atrial fibrillation and is anticoagulated with Xarelto for that. Her defibrillator is a Biotronik device according to the records. I have some concerns regarding the patient's cognitive status in terms of her ability to provide informed consent for procedures. Apart from this issue we will plan to proceed with CHANCE tomorrow Tom Huang MD [facility] Subjective Date/time seen: Date of service: 05/27/24 08:58 Interval history: Follow-up visit in this 63-year-old woman with nonischemic cardiomyopathy, atrial fibrillation and previously implanted defibrillator. Patient was seen in consultation because of Staph aureus in blood cultures. Desire for CHANCE. This was explained to the patient again in detail. Exam Const: General: no acute distress Other: Morbidly obese white female complaining of neck and back pain eating her breakfast no acute distress HENMT: Mouth: Yes moist mucous membranes Eyes: Sclera: sclerae normal Neck: Neck: supple Resp: Effort & Inspection: normal respiratory effort Auscultation: clear to auscultation bilaterally Other: Breath sounds are distant because of morbid obesity but basically clear Cardio: Rate: regular rate Rhythm: regular rhythm Other: Paced rhythm GI: GI Palp: Yes Soft to palpation Auscultation: normal bowel sounds Skin: General skin exam: normal color Neuro: Other: Alert and responsive Objective Data Vital Signs Vital Signs: Vital Signs - 24 hr 05/26/24 12:00 05/26/24 14:33 05/26/24 16:00 Temperature 36.6 C Pulse Rate 82 77 80 Respiratory Rate 19 Blood Pressure 117/52 L Pulse Oximetry 90 Oxygen Delivery Fraction of Inspired Oxygen 05/26/24 19:36 05/26/24 20:33 05/26/24 20:00 Temperature 36.8 C Pulse Rate 77 72 Respiratory Rate 18 Blood Pressure 109/50 L Pulse Oximetry 91 Oxygen Delivery Room Air Fraction of Inspired Oxygen 05/27/24 04:38 05/26/24 20:00 05/27/24 00:00 Temperature 36.7 C Pulse Rate 83 68 79 Respiratory Rate 18 Blood Pressure 110/53 L Pulse Oximetry 98 Oxygen Delivery Fraction of Inspired Oxygen 05/27/24 04:00 05/27/24 07:28 Temperature Pulse Rate 84 Respiratory Rate Blood Pressure Pulse Oximetry 98 Oxygen Delivery Room Air Fraction of Inspired Oxygen 21 Intake/Output Intake/Output: Intake & Output 05/24/24 05/25/24 05/26/24 05/27/24 23:59 23:59 23:59 23:59 Intake Total 2120 1670 1440 150 Balance 2120 1670 1440 150 Meds/Results Medications: Active Medications Generic Name Dose Route Start Last Admin Trade Name Freq PRN Reason Stop Dose Admin Hydrocodone Bitart/Acetaminophen 1 tab 05/21/24 09:04 05/26/24 12:47 Hydrocodone/Acetaminophen (*Crx) 5-325 Mg Tablet PO 1 tab Q6H PRN Administration Pain Rated 7-10 Al Hydrox/Mg Hydrox/Simethicone 30 ml 05/21/24 05:16 Mag Hydrox/Al Hydrox/Simeth 30 Ml Udc PO Q6H PRN Indigestion Carvedilol 6.25 mg 05/21/24 21:00 05/26/24 20:33 Carvedilol 6.25 Mg Tablet PO 6.25 mg Q12HR GALINA Administration Dextrose 12.5 gm 05/21/24 09:35 Dextrose 50% 25 Gm/50 Ml Syringe IV PUSH PRN PRN Hypoglycemia Protocol Diltiazem HCl 30 mg 05/21/24 14:00 05/27/24 06:09 Diltiazem Hcl 30 Mg Tablet PO 30 mg Q8HR GALINA Administration Docusate Sodium 100 mg 05/21/24 17:00 05/26/24 17:17 Docusate Sodium 100 Mg Capsule PO 100 mg BID GALINA Administration Empagli
[2024-05-27] MEDS: NORTRIPTYLINE HCL 10 MG CAPSULE PO ×2 (09:50→21:25)
[2024-05-27] MEDS: PANTOPRAZOLE 40 MG TABLET PO (09:50)
[2024-05-27] MEDS: DOCUSATE SODIUM 100 MG CAPSULE PO ×2 (09:50→17:36)
[2024-05-27] MEDS: INSULIN GLARGINE (*BKC) 100 UNITS/ML 18 UNITS SUB-Q (09:50)
[2024-05-27] MEDS: INSULIN ASPART (*BKC) 100 UNITS/ML 10 UNITS SUB-Q ×3 (09:51→17:34)
[2024-05-27] MEDS: FERROUS SULFATE 325 MG TABLET DR PO (09:51)
[2024-05-27] MEDS: SACUBITRIL/VALSARTAN 24-26 MG TABLET 1 TAB PO ×2 (09:51→21:24)
[2024-05-27] MEDS: ESCITALOPRAM OXALATE 10 MG TABLET PO (09:51)
[2024-05-27] MEDS: POTASSIUM CHLORIDE 20 MEQ ER TABLET PO (09:51)
[2024-05-27] MEDS: FUROSEMIDE 40 MG TABLET PO (09:51)
[2024-05-27] MEDS: EMPAGLIFLOZIN 25 MG TABLET BY MOUTH (09:51)
[2024-05-27] MEDS: carvediloL 6.25 MG TABLET PO ×2 (09:51→21:25)
[2024-05-27 11:42] LABS: Glucose Point of Care 279 mg/dl (65-105)
[2024-05-27] MEDS: HYDROcodone/acetaminophen (*CRX) 5-325 MG TABLET 1 TAB PO ×2 (12:00→21:24)
--- NOTE | 2024-05-27 12:12 | PM.IMPN ---
Progress Note: A&P Assessment and Plan (1) Bacteremia: Code(s): R78.81 - Bacteremia Status: Acute Assessment and Plan: - Initial blood-cultures on admission growing staph aureus X4 bottles. - Repeat blood cultures pending. - CT of head and neck without abnormalities. - US abdomen negative for any acute findings. - UA without any evidence of UTI. - CXR showing mild pulmonary edema with trace pleural effusion. - No fevers or overt signs of infectious process. - Scheduled for CHANCE Possibly tomorrow per centrifugal machine tender to r/o infectious endocarditis. - Continue Vancomycin and Ancef for now per sensitivities. - Monitor symptoms progression. (2) Acute dehydration: Code(s): E86.0 - Dehydration Status: Acute Assessment and Plan: - Resolved. (3) Acute hyponatremia: Code(s): E87.1 - Hypo-osmolality and hyponatremia Status: Acute Assessment and Plan: - Stable. - Possibly related to CHF. - Asymptomatic. - Continue to trend. (4) Thrombocytopenia: Code(s): D69.6 - Thrombocytopenia, unspecified Status: Acute Assessment and Plan: - Levels appear stable. - No bleeding signs noted. - Continue to monitor closely. (5) Atrial fibrillation: Code(s): I48.91 - Unspecified atrial fibrillation Status: Chronic Assessment and Plan: - Stable. Maintains SR. - Continue Carvedilol, Cardizem, Xarelto (6) Transaminitis: Code(s): R74.01 - Elevation of levels of liver transaminase levels Status: Acute Assessment and Plan: - CT abdomen pelvis on admission fairly unremarkable, only showing small sliding hiatal hernia. - US abdomen negative for any acute findings. - Possibly 2'/2 CHF. - Appears stable. - Continue to monitor trend. (7) Hyperbilirubinemia: Code(s): E80.6 - Other disorders of bilirubin metabolism Status: Acute Assessment and Plan: - Stable. - Possibly 2'/2 CHF vs meds vs other. - Continue to monitor trend. (8) Bandemia: Code(s): D72.825 - Bandemia Status: Acute Assessment and Plan: - Possibly related to bacteremia. - Mgt as # 1 above. - Continue to monitor trend. (9) Abdominal pain: Code(s): R10.9 - Unspecified abdominal pain Status: Acute Assessment and Plan: - Intermittent and possibly chronic; ?gastroparesis vs other. - CT abdomen pelvis without any evidence acute intra-abdominal process. - US RUQ normal. - Tolerating regular food ok. - No nausea, vomiting or diarrhea. - Supportive care for now. (10) Pulmonary edema: Code(s): J81.1 - Chronic pulmonary edema Status: Acute Assessment and Plan: - CXR on admission showed pulmonary edema and trace pleural effusion and cardiomegaly. - Echo 06/02 showed LVSF at 35-40%. - Appears stable. - Continue Lasix, Jardiance and Entresto. - Continue I & O's monitoring with daily weights. (11) Diabetes: Code(s): E11.9 - Type 2 diabetes mellitus without complications Status: Acute Assessment and Plan: - A1C is 8.0. - Fairly controlled. - Continue Mealtime insulin and Lantus - Continue Diabetic diet - Continue to adjust insulin as needed. (12) HTN (hypertension): Code(s): I10 - Essential (primary) hypertension Status: Chronic Assessment and Plan: - Well controlled.Continue home meds. (13) Hypothyroidism: Code(s): E03.9 - Hypothyroidism, unspecified Status: Chronic Assessment and Plan: - Continue home medications of levothyroxine Time Spent With Patient Time with patient: 25 - 35 minutes Subjective Date/time seen: 05/27/24 10:12 Interval history: Patient seen and examined. Patient currently on bedrest stating she has neck and back pain. Patient presented to the ER with reports of generalized body aches
[2024-05-27 16:46] LABS: Glucose Point of Care 192 mg/dl (65-105)
[2024-05-27] MEDS: RIVAROXABAN 20 MG TABLET PO (17:36)
[2024-05-28] VITALS (12 sets, daily range): BP systolic 107–134; BP diastolic 52–80; PULSE 65–120; RESP 16–25; TEMP 36.3–36.7; O2SAT 95–100
--- NOTE | 2024-05-28 | ECHO_ITS ---
Patient Info Name: Loretta Penn Age: 63 years : 1960 Gender: Female Heart Rhythm: Paced Technical Quality: Good Exam Date: 05/28/2024 9:48 AM Exam Location: Echo Lab Patient Status: Inpatient Admit Date: 05/22/2024 Staff Ordering Physician: Tom Huang MD Outsole Molder: RL Attending Provider: Ramon Calvert MD Referring Physician: Reina BOOTH; Exam Type: CA echo transesophageal Study Info Indications - POSSIBLE ENDOCARDITIS Complete two-dimensional, color flow and Doppler transesophageal study is performed. Summary 1. With mild global left ventricular systolic dysfunction ejection fraction approximately 40-45%. 2. Moderate left atrial enlargement. 3. Small amount of MR. 4. Anatomically normal appearing tricuspid valve with small vegetation approximately 2 mm diameter associated with the tricuspid valve, not clearly involving the ICD lead. 5. Bacterial endocarditis of the tricuspid valve. Left Ventricle Left ventricular chamber dimension is normal. Left ventricular systolic function is mildly reduced with an ejection fraction by Biplane Method of Discs of Empty. Right Ventricle Right ventricular chamber dimension is normal. Left Atria Left atrial chamber dimension is moderately enlarged. Right Atria Right atrial chamber dimension is mildly enlarged. Linear artifact in the right atrium suggestive of catheter(s), pacemaker lead(s), or ICD lead(s). Atrial Appendage There is no thrombus visualized in the left atrial appendage. Aortic Valve The aortic valve is normal. Pulmonic Valve The pulmonic valve is normal. Mitral Valve The mitral valve has normal leaflets. There is mild mitral valve regurgitation. Tricuspid Valve The tricuspid valve leaflets are normal. There is mild tricuspid valve regurgitation. Small tricuspid valve vegetation visualized. Pericardium/Pleural The pericardium appears normal. Inferior Vena Cava Not well visualized inferior vena cava with Empty collapse upon inspiration consistent with Empty right atrial pressure, Empty. Aorta The aortic root size at the sinus of Valsalva is normal. Report Signatures
[2024-05-28] MEDS: ceFAZolin 2 GM/D5W 50 ML 2 GM/50 ML BAG IVPB ×3 (05:33→21:00)
[2024-05-28] MEDS: LEVOTHYROXINE SODIUM 75 MCG TABLET PO (05:33)
[2024-05-28] MEDS: dilTIAZem HCL 30 MG TABLET PO ×3 (05:33→20:30)
[2024-05-28 06:03] LABS: Glucose Point of Care 183 mg/dl (65-105)
[2024-05-28 06:15] LABS: Alanine Aminotransferase 21 U/L (6-35); Albumin Level 2.9 g/dL (3.5-5.1); Alkaline Phosphatase 434 U/L (38-126); Anion Gap 7 mmol/L (4-12); Aspartate Amino Transferase 45 U/L (14-36); Blood Urea Nitrogen 9 mg/dL (7-17); Calcium 8.1 mg/dL (8.4-10.2); Carbon Dioxide 31 mmol/L (22-30); Chloride 93 mmol/L (98-107); Estimated CRCL calculation 131 ml/min; Estimated Glomerular Filt Rate > 60; Glucose 72 mg/dL (65-110); Potassium 3.2 mmol/L (3.4-5.0); Sodium 131 mmol/L (137-145)
[2024-05-28 06:29] LABS: Basophils Absolute Auto 0.1 K/mm3 (0.0-0.1); Basophils Percent Auto 0.7 % (0.2-1.2); Eosinophils Absolute Auto 0.1 K/mm3 (0-0.3); Eosinophils Percent Auto 0.8 % (0-4.4); Hemoglobin 12.4 g/dL (12.0-15.0); Immature Granulocyte Absolute 0.36 K/mm3 (0.00-0.031); Immature Granulocyte Percent A 2.7 % (0-0.5); Lymphocytes Absolute Auto 1.89 K/mm3 (0.9-3.2); Lymphocytes Percent Auto 14.2 % (18.3-44.2); Mean Corpuscular HGB Conc 33.5 g/dl (32-36); Mean Corpuscular Volume 98.4 fl (80-100); Mean Platelet Volume 9.8 fl (7.4-10.4); Monocytes Percent Auto 7.6 % (2.6-8.5); Neutrophils Absolute Auto 9.9 K/mm3 (1.3-6.7); Platelet Count Result 258 k/mm3 (150-375); Red Blood Count 3.76 M/mm3 (4.2-5.4); Red Cell Distribution Width 14.6 % (11.5-14.5); White Blood Count 13.3 K/mm3 (4.5-10.0)
[2024-05-28 07:59] LABS: Glucose Point of Care 196 mg/dl (65-105)
[2024-05-28 08:33] LABS: Glucose Point of Care 66 mg/dl (65-105)
[2024-05-28 09:12] LABS: Glucose Point of Care 72 mg/dl (65-105)
--- NOTE | 2024-05-28 09:32 | PC.NURSE ---
RN called sister Peg. No answer at this time.
--- NOTE | 2024-05-28 09:47 | PC.NURSE ---
RN spoke with Sheryl on a joined call via telephone to obtain consent for CHANCE. The two siblings decided they wanted to speak with her sign artist Dr. Flores before they decide.
--- NOTE | 2024-05-28 10:10 | WPDANESEPPF ---
Anes - Initial Pre Proc Eval Procedure: Operation Date: 05/28/24 10:15 Proposed Procedures p Trans Esophageal Echo - Tom Huang MD Date/Time: 05/28/24 10:10 Surgeon: Ramon Calvert MD Pre Op Diagnosis: hypoNa, hypovolemia Patient Data Age: 63 Gender: F Height: 1.65 m Weight: 127.2 kg Last Vital Signs Temp 97.4 F L 05/28/24 06:00 Pulse 79 05/28/24 06:00 Resp 16 05/28/24 06:00 BP 112/52 L 05/28/24 06:00 Pulse Ox 95 05/28/24 06:00 O2 Del Method Room Air 05/28/24 08:00 FiO2 21 05/27/24 07:28 Allergies Allergy/AdvReac Type Severity Reaction Status Date / Time Sulfa (Sulfonamide Allergy Mild RASH Verified 09/05/22 21:45 Antibiotics) Home Medications Medication Instructions Recorded Confirmed Type blood sugar diagnostic (OneTouch 06/27/20 05/21/24 History Verio test strips) carvedilol 25 mg tablet 25 mg PO BID 06/27/20 05/21/24 History diltiazem HCl 30 mg tablet 30 mg PO TID 06/27/20 05/21/24 History escitalopram oxalate 10 mg tablet 10 mg PO DAILY 06/27/20 05/21/24 History furosemide 40 mg tablet 40 mg PO DAILY 06/27/20 05/21/24 History insulin syringe-needle U-100 0.5 06/27/20 05/21/24 History mL 31 gauge x 5/16 (Sure Comfort Insulin Syringe) insulin syringe-needle U-100 0.5 06/27/20 05/21/24 History mL 31 gauge x 5/16 (TRUEplus Insulin) nortriptyline 10 mg capsule 10 mg PO DAILY 06/27/20 05/21/24 History omeprazole 20 mg capsule,delayed 20 mg PO DAILY 06/27/20 05/21/24 History release potassium chloride 20 mEq 20 meq PO DAILY 06/27/20 05/21/24 History tablet,extended release(part/cryst) rivaroxaban 20 mg tablet (Xarelto) 20 mg PO DAILY 06/27/20 05/21/24 History dapagliflozin propanediol 10 mg 10 mg PO DAILY 05/21/24 05/21/24 History tablet (Farxiga) docusate sodium 100 mg capsule 100 mg PO BID 05/21/24 05/21/24 History ferrous sulfate 325 mg (65 mg 1 mg PO DAILY 05/21/24 05/21/24 History iron) tablet (FeroSul) insulin aspart U-100 100 unit/mL 10 unit subcut TIDWMEAL 05/21/24 05/21/24 History (3 mL) subcutaneous pen (Novolog FlexPen U-100 Insulin aspart) insulin glargine 100 unit/mL (3 18 unit subcut DAILY 05/21/24 05/21/24 History mL) subcutaneous pen (Basaglar KwikPen U-100 Insulin) levothyroxine 75 mcg tablet 75 mcg PO DAILY 05/21/24 05/21/24 History sacubitril 24 mg-valsartan 26 mg 1 tablet PO BID 05/21/24 05/21/24 History tablet (Entresto) vibegron 75 mg tablet (Gemtesa) 75 mg PO DAILY 05/21/24 05/21/24 History Laboratory Tests 05/20/24 05/27/24 05/27/24 20:36 11:35 16:42 WBC RBC Hgb Hct MCV MCH MCHC RDW Plt Count MPV Immature Gran % (Auto) Neut % (Auto) Lymph % (Auto) [place] % (Auto) Eos % (Auto) Baso % (Auto) Lymph # (Auto) [place] # (Auto) Eos # (Auto) Baso # (Auto) Abs Immat Gran (auto) Absolute Neuts (auto) Absolute Nucleated RBC Nucleated RBC % Sodium Potassium Chloride Carbon Dioxide Anion Gap BUN Creatinine Estim Creat Clear Calc Estimated GFR Glucose POC Capillary Glucose 196 H mg/dl 279 H mg/dl 192 H mg/dl (65-105) (65-105) (65-105) Calcium Total Bilirubin AST ALT Alkaline Phosphatase Total Protein Albumin 05/27/24 05/28/24 05/28/24 20:27 05:32 08:06 WBC 13.3 H K/mm3 (4.5-10.0) RBC 3.76 L M/mm3 (4.2-5.4) Hgb 12.4 g/dL (12.0-15.0) Hct 37.0 % (37.0-47.0) MCV 98.4 fl (80-100) MCH 33.0 pg (26-34)
--- NOTE | 2024-05-28 10:15 | PC.NURSE ---
Patient off of unit to CHANCE
--- NOTE | 2024-05-28 10:24 | PCOTNOTE ---
Pt is off floor for procedure per RN. Will attempt per poc duration/frequency when appropriate.
--- NOTE | 2024-05-28 10:29 | P.PCNCC_ITS ---
Cardiac Cath Procedure Note Date of procedure:: 05/28/24 Performing physician:: Tom Huang MD Indication:: Staph aureus bacteremia Brief clinical history:: This is a 63-year-old woman with a history of nonischemic cardiomyopathy who has an implantable defibrillator. She entered the hospital last week with a variety of complaints on among which was recent fever and abdominal discomfort. Blood cultures were positive for Staph aureus leading to the recommendation for transesophageal echocardiogram. Procedure Procedure performed:: Gt Sedation/Medication given:: Sedation per the Anesthesia Service, see their separately dictated note Estimated blood loss:: No blood loss Procedure note:: The patient was brought to the cardiac catheterization lab postanesthesia room in the postabsorptive state. She had been is a cane splayed in the oropharynx. She was then sedated per the Anesthesia Service. The GT probe was passed through the mask into the hypopharynx and then easily into the esophagus. Multiplane are gt with Doppler was performed examining her cardiac valves. The probe was then withdrawn and the patient is awakening. There were no apparent procedural complications or problems. Findings:: The left atrium is mildly enlarged the mitral valve leaflets are normal in appearance there is no evidence of infective vegetation there is a small amount of central MR detected. The aortic valve is a normal-appearing trileaflet structure which is thin and pliable. There is no evidence of any vegetation a trivial amount of AI and no perivalvular abscess was seen. The tricuspid valve is anatomically normal. The septal valve has a small vegetation about 2 mm in size that is mobile and in systole can be seen a prolapsing into the right atrium. There is a very small amount of TR noted. The pulmonic valve was suboptimally visualized there is no infective vegetation evident and no would detectable pulmonic regurgitation. The vegetation on the tricuspid valve is obviously close to the defibrillator lead but is not clearly involving the lead. Conclusion:: Gt performed in this 63-year-old patient with Staph aureus bacteremia demonstrating endocarditis of the tricuspid valve. Tom Huang MD [facility]
--- NOTE | 2024-05-28 10:33 | PM.PNCARD ---
Progress Note: A&P Assessment and Plan (1) Bacteremia: Code(s): R78.81 - Bacteremia Status: Acute (2) Endocarditis due to Staphylococcus: Code(s): 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; B95.8 - Unspecified staphylococcus as the cause of diseases classified elsewhere Status: Acute Plan 63-year-old patient with nonischemic cardiomyopathy on guideline directed medical therapy also with a chronically implanted ICD. She receives her cardiovascular care elsewhere. We were asked to perform CHANCE on this patient because of Staph aureus bacteremia. The study does unfortunately demonstrate endocarditis of the tricuspid valve. Obviously the ICD lead is very close to this vegetation but I do not see any clear-cut evidence that the lead is involved. He will add very least require long course of antibiotics for endocarditis and then close follow-up. Will potentially need to consider transfer of this patient if ID consultation is necessary. If this happens I would suggest transferring her to a hospital where her established soa architect are also available to participate in her care Tom Huang MD [facility] Subjective Date/time seen: Date of service: 05/28/24 10:33 Interval history: Follow-up visit in this 63-year-old lady with: History of nonischemic cardiomyopathy as well as previously implanted defibrillator and history of morbid obesity. Patient was found to have Staph aureus bacteremia with fever on admission to the hospital last week. Transesophageal echocardiogram this morning demonstrates infective vegetation involving the tricuspid valve. Exam Const: General: comfortable and no acute distress Other: Morbidly obese white female no immediate distress HENMT: Mouth: Yes moist mucous membranes Eyes: Sclera: sclerae normal Neck: Neck: supple and no JVD Resp: Effort & Inspection: normal respiratory effort Auscultation: clear to auscultation bilaterally Other: Breath sounds distant but basically clear Cardio: Rate: regular rate Rhythm: regular rhythm GI: GI Palp: Yes Soft to palpation Auscultation: normal bowel sounds Other: Obese but benign Skin: General skin exam: normal color Neuro: Other: Alert and responsive Objective Data Vital Signs Vital Signs: Vital Signs - 24 hr 05/27/24 12:00 05/27/24 14:00 05/27/24 16:00 Temperature 36.4 C Pulse Rate 106 H 102 H 88 Respiratory Rate 16 Blood Pressure 134/84 Pulse Oximetry 96 Oxygen Delivery 05/27/24 21:25 05/27/24 20:00 05/27/24 20:00 Temperature Pulse Rate 106 H 104 H Respiratory Rate Blood Pressure Pulse Oximetry Oxygen Delivery Room Air 05/27/24 21:49 05/28/24 00:00 05/28/24 04:00 Temperature 36.3 C L Pulse Rate 105 H 65 81 Respiratory Rate 16 Blood Pressure 140/84 Pulse Oximetry 95 Oxygen Delivery 05/28/24 06:00 05/28/24 08:00 Temperature 36.3 C L Pulse Rate 79 Respiratory Rate 16 Blood Pressure 112/52 L Pulse Oximetry 95 Oxygen Delivery Room Air Intake/Output Intake/Output: Intake & Output 05/25/24 05/26/24 05/27/24 05/28/24 23:59 23:59 23:59 23:59 Intake Total 1670 1440 2019 Balance 1670 1440 2019 Meds/Results Medications: Active Medications Generic Name Dose Route Start Last Admin Trade Name Freq PRN Reason Stop Dose Admin Hydrocodone Bitart/Acetaminophen 1 tab 05/21/24 09:04 05/27/24 21:24 Hydrocodone/Acetaminophen (*Crx) 5-325 Mg Tablet PO 1 tab Q6H PRN Administration Pain Rated 7-10 Al Hydrox/Mg Hydrox/Simethicone 30 ml 05/21/24 05:16 Mag Hydrox/Al Hydrox/Simeth 30 Ml Udc PO Q6H PRN Indigestion Carvedilol 6.25 mg 05/21/24 21:00 05/28/24 08:14 Carvedilol 6.25 Mg Tablet PO Not Given Q12HR GALINA Dextrose 12.5 gm 05/21/24 09:35 Dextrose 50% 25 Gm/50 Ml Syringe IV PUSH PRN PRN Hypoglycemia Protocol Diltiazem HCl 30 mg 05/10
[2024-05-28 11:54] LABS: Glucose Point of Care 85 mg/dl (65-105)
--- NOTE | 2024-05-28 15:35 | PM.IMPN ---
Progress Note: A&P Assessment and Plan (1) Bacteremia: Code(s): R78.81 - Bacteremia Status: Acute Assessment and Plan: - Initial blood-cultures on admission growing staph aureus X4 bottles. - Preliminary repeat blood cultures NGTD. - CT of head and neck without abnormalities. - US abdomen negative for any acute findings. - UA without any evidence of UTI. - CXR showing mild pulmonary edema with trace pleural effusion. - No fevers or overt signs of infectious process. 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 - Arranging for transfer to [facility] for ID and patient's ornamental ironworker helper to evaluate. - Continue Vancomycin and Ancef per initial sensitivities. (2) Acute dehydration: Code(s): E86.0 - Dehydration Status: Acute Assessment and Plan: - Resolved. (3) Acute hyponatremia: Code(s): E87.1 - Hypo-osmolality and hyponatremia Status: Acute Assessment and Plan: - Stable. - Possibly related to CHF. - Asymptomatic. - Continue to trend. (4) Thrombocytopenia: Code(s): D69.6 - Thrombocytopenia, unspecified Status: Acute Assessment and Plan: - Levels appear stable. - No bleeding signs noted. - Continue to monitor closely. (5) Atrial fibrillation: Code(s): I48.91 - Unspecified atrial fibrillation Status: Chronic Assessment and Plan: - Stable. Maintains SR. - Continue Carvedilol, Cardizem, Xarelto (6) Transaminitis: Code(s): R74.01 - Elevation of levels of liver transaminase levels Status: Acute Assessment and Plan: - CT abdomen pelvis on admission fairly unremarkable, only showing small sliding hiatal hernia. - US abdomen negative for any acute findings. - Possibly 2'/2 CHF. - Appears stable. - Continue to monitor trend. (7) Hyperbilirubinemia: Code(s): E80.6 - Other disorders of bilirubin metabolism Status: Acute Assessment and Plan: - Stable. - Possibly 2'/2 CHF vs meds vs other. - Continue to monitor trend. (8) Bandemia: Code(s): D72.825 - Bandemia Status: Acute Assessment and Plan: - Possibly related to bacteremia. - Mgt as # 1 above. - Continue to monitor trend. (9) Abdominal pain: Code(s): R10.9 - Unspecified abdominal pain Status: Acute Assessment and Plan: - Intermittent and possibly chronic; ?gastroparesis vs other. - CT abdomen pelvis without any evidence acute intra-abdominal process. - US RUQ normal. - Tolerating regular food ok. - No nausea, vomiting or diarrhea. - Supportive care for now. (10) Pulmonary edema: Code(s): J81.1 - Chronic pulmonary edema Status: Acute Assessment and Plan: - CXR on admission showed pulmonary edema and trace pleural effusion and cardiomegaly. - Echo 06/02 showed LVSF at 35-40%. - Appears stable. - Continue Lasix, Jardiance and Entresto. - Continue I & O's monitoring with daily weights. (11) Diabetes: Code(s): E11.9 - Type 2 diabetes mellitus without complications Status: Acute Assessment and Plan: - A1C is 8.0. - Fairly controlled. - Continue Mealtime insulin and Lantus - Continue Diabetic diet - Continue to adjust insulin as needed. (12) HTN (hypertension): Code(s): I10 - Essential (primary) hypertension Status: Chronic Assessment and Plan: - Well controlled.Continue home meds. (13) Hypothyroidism: Code(s): E03.9 - Hypothyroidism, unspecified Status: Chronic Assessment and Plan: - Continue home medications of levothyroxine Subjective Date/time seen: 05/28/24 12:35 Interval history: Patient seen and examined. Patient currently seated on chair eating lunch and appears to be in no acute distress. Patient presented to the ER with reports of generalized b
--- NOTE | 2024-05-28 15:53 | PM.DS ---
DS: Admitting Diagnosis Discharge Date 05/28/24 Admitting Diagnosis Generalized Pain DS: Discharge Diagnosis Discharge Diagnosis (1) Bacteremia: Code(s): R78.81 - Bacteremia Status: Acute Assessment and Plan: - Initial blood-cultures on admission growing staph aureus X4 bottles. - Preliminary repeat blood cultures NGTD. - CT of head and neck without abnormalities. - US abdomen negative for any acute findings. - UA without any evidence of UTI. - CXR showing mild pulmonary edema with trace pleural effusion. - No fevers or overt signs of infectious process. 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 - Arranging for transfer to [facility] for ID and patient's spice miller to evaluate. - Continue Vancomycin and Ancef until patient transfers. (2) Acute dehydration: Code(s): E86.0 - Dehydration Status: Acute Assessment and Plan: - Resolved. (3) Acute hyponatremia: Code(s): E87.1 - Hypo-osmolality and hyponatremia Status: Acute Assessment and Plan: - Stable. - Possibly related to CHF. - Asymptomatic. - Continue to trend. (4) Thrombocytopenia: Code(s): D69.6 - Thrombocytopenia, unspecified Status: Acute Assessment and Plan: - Levels appear stable. - No bleeding signs noted. - Continue to monitor closely. (5) Atrial fibrillation: Code(s): I48.91 - Unspecified atrial fibrillation Status: Chronic Assessment and Plan: - Stable. Maintains SR. - Continue Carvedilol, Cardizem, Xarelto (6) Transaminitis: Code(s): R74.01 - Elevation of levels of liver transaminase levels Status: Acute Assessment and Plan: - CT abdomen pelvis on admission fairly unremarkable, only showing small sliding hiatal hernia. - US abdomen negative for any acute findings. - Possibly 2'/2 CHF. - Appears stable. - Continue to monitor trend. (7) Hyperbilirubinemia: Code(s): E80.6 - Other disorders of bilirubin metabolism Status: Acute Assessment and Plan: - Stable. - Possibly 2'/2 CHF vs meds vs other. - Continue to monitor trend. (8) Bandemia: Code(s): D72.825 - Bandemia Status: Acute Assessment and Plan: - Possibly related to bacteremia. - Mgt as # 1 above. - Continue to monitor trend. (9) Abdominal pain: Code(s): R10.9 - Unspecified abdominal pain Status: Acute Assessment and Plan: - Intermittent and possibly chronic; ?gastroparesis vs other. - CT abdomen pelvis without any evidence acute intra-abdominal process. - US RUQ normal. - Tolerating regular food ok. - No nausea, vomiting or diarrhea. - Supportive care for now. (10) Pulmonary edema: Code(s): J81.1 - Chronic pulmonary edema Status: Acute Assessment and Plan: - CXR on admission showed pulmonary edema and trace pleural effusion and cardiomegaly. - Echo 06/02 showed LVSF at 35-40%. - Appears stable. - Continue Lasix, Jardiance and Entresto. - Continue I & O's monitoring with daily weights. (11) Diabetes: Code(s): E11.9 - Type 2 diabetes mellitus without complications Status: Acute Assessment and Plan: - A1C is 8.0. - Fairly controlled. - Continue Mealtime insulin and Lantus - Continue Diabetic diet - Continue to adjust insulin as needed. (12) HTN (hypertension): Code(s): I10 - Essential (primary) hypertension Status: Chronic Assessment and Plan: - Well controlled.Continue home meds. (13) Hypothyroidism: Code(s): E03.9 - Hypothyroidism, unspecified Status: Chronic Assessment and Plan: - Continue home medications of levothyroxine (14) Endocarditis due to Staphylococcus: Code(s): 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; B95.8 - Unspecified staphylococcus as
[2024-05-28] MEDS: RIVAROXABAN 20 MG TABLET PO (16:47)
[2024-05-28] MEDS: DOCUSATE SODIUM 100 MG CAPSULE PO (16:47)
--- NOTE | 2024-05-28 17:00 | PC.NURSE ---
RN spoke with [facility] transfer center. NO beds at this time.
[2024-05-28 17:03] LABS: Glucose Point of Care 125 mg/dl (65-105)
--- NOTE | 2024-05-28 18:32 | PC.NURSE ---
RN gave update to Peg and Dilia on a joint phone call via telephone.
[2024-05-28] MEDS: SACUBITRIL/VALSARTAN 24-26 MG TABLET 1 TAB PO (20:30)
[2024-05-28] MEDS: NORTRIPTYLINE HCL 10 MG CAPSULE PO (20:30)
[2024-05-28] MEDS: carvediloL 6.25 MG TABLET PO (20:30)
[2024-05-28] MEDS: HYDROcodone/acetaminophen (*CRX) 5-325 MG TABLET 1 TAB PO (20:38)
[2024-05-29] VITALS (7 sets, daily range): BP systolic 132–138; BP diastolic 87–89; PULSE 79–101; RESP 18–20; TEMP 36.6–36.8; O2SAT 96–99
[2024-05-29] MEDS: dilTIAZem HCL 30 MG TABLET PO ×2 (05:57→15:03)
[2024-05-29] MEDS: LEVOTHYROXINE SODIUM 75 MCG TABLET PO (05:58)
[2024-05-29] MEDS: ceFAZolin 2 GM/D5W 50 ML 2 GM/50 ML BAG IVPB ×2 (05:58→15:03)
[2024-05-29 06:08] LABS: Glucose Point of Care 143 mg/dl (65-105)
[2024-05-29] MEDS: INSULIN GLARGINE (*BKC) 100 UNITS/ML 18 UNITS SUB-Q (08:17)
[2024-05-29] MEDS: ESCITALOPRAM OXALATE 10 MG TABLET PO (08:18)
[2024-05-29] MEDS: PANTOPRAZOLE 40 MG TABLET PO (08:18)
[2024-05-29] MEDS: EMPAGLIFLOZIN 25 MG TABLET BY MOUTH (08:18)
[2024-05-29] MEDS: carvediloL 6.25 MG TABLET PO (08:18)
[2024-05-29] MEDS: DOCUSATE SODIUM 100 MG CAPSULE PO (08:18)
[2024-05-29] MEDS: POTASSIUM CHLORIDE 20 MEQ ER TABLET PO (08:18)
[2024-05-29] MEDS: FUROSEMIDE 40 MG TABLET PO (08:18)
[2024-05-29] MEDS: FERROUS SULFATE 325 MG TABLET DR PO (08:18)
[2024-05-29] MEDS: SACUBITRIL/VALSARTAN 24-26 MG TABLET 1 TAB PO (08:18)
[2024-05-29 08:22] LABS: Glucose Point of Care 112 mg/dl (65-105)
--- NOTE | 2024-05-29 09:37 | PCNWS ---
Weekly nutritional screen. Patient is tolerating current diet with adequate intake. No weight loss reported. No nutritional needs at this time.
--- NOTE | 2024-05-29 09:52 | PM.TDS ---
Transfer Discharge Sum: Prov Provider Date of admission: 05/22/24 11:17 Primary care physician: Oswaldo Serrano, Admitting clinician: Ramon Clavert MD Consults: 05/23/24 Consult to Physician Routine Comment: Consulting Provider: Annie Block call center operator/MD group to consult: Annie Block. spoke with provider 05/24/24 @ 1600 Reason for consultation: Evaluation for possible CHANCE, Bacteremia with ICD in place Has provider been notified: Yes Attending physician on discharge: Desmond Torres Discharging clinician: Chuckie Stewart Anticipated date of transfer: 05/29/24 Receiving physician/facility: [facility] DS: Admitting Diagnosis Discharge Date 05/29/24 Admitting Diagnosis Generalized body aches DS: Discharge Diagnosis Discharge Diagnosis (1) Bacteremia: Code(s): R78.81 - Bacteremia Status: Acute Assessment and Plan: - Initial blood-cultures on admission growing staph aureus X4 bottles. - Preliminary repeat blood cultures NGTD. - CT of head and neck without abnormalities. - US abdomen negative for any acute findings. - UA without any evidence of UTI. - CXR showing mild pulmonary edema with trace pleural effusion. - No fevers or overt signs of infectious process. 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 - Arranging for transfer to [facility] for ID and patient's custodian manager to evaluate. - Continue Vancomycin and Ancef until patient transfers. (2) Acute dehydration: Code(s): E86.0 - Dehydration Status: Acute Assessment and Plan: - Resolved. (3) Acute hyponatremia: Code(s): E87.1 - Hypo-osmolality and hyponatremia Status: Acute Assessment and Plan: - Stable. - Possibly related to CHF. - Asymptomatic. - Continue to trend. (4) Thrombocytopenia: Code(s): D69.6 - Thrombocytopenia, unspecified Status: Acute Assessment and Plan: - Levels appear stable. - No bleeding signs noted. - Continue to monitor closely. (5) Atrial fibrillation: Code(s): I48.91 - Unspecified atrial fibrillation Status: Chronic Assessment and Plan: - Stable. Maintains SR. - Continue Carvedilol, Cardizem, Xarelto (6) Transaminitis: Code(s): R74.01 - Elevation of levels of liver transaminase levels Status: Acute Assessment and Plan: - CT abdomen pelvis on admission fairly unremarkable, only showing small sliding hiatal hernia. - US abdomen negative for any acute findings. - Possibly 2'/2 CHF. - Stable prior to transfer. (7) Hyperbilirubinemia: Code(s): E80.6 - Other disorders of bilirubin metabolism Status: Acute Assessment and Plan: - Stable. - Possibly 2'/2 CHF vs meds vs other. (8) Bandemia: Code(s): D72.825 - Bandemia Status: Acute Assessment and Plan: - Possibly related to bacteremia. - Continue IV antibiotics. (9) Abdominal pain: Code(s): R10.9 - Unspecified abdominal pain Status: Acute Assessment and Plan: - Intermittent and possibly chronic; ?gastroparesis vs other. - CT abdomen pelvis without any evidence acute intra-abdominal process. - US RUQ normal. - Tolerating regular food ok. - No nausea, vomiting or diarrhea. - Supportive care. (10) Pulmonary edema: Code(s): J81.1 - Chronic pulmonary edema Status: Acute Assessment and Plan: - CXR on admission showed pulmonary edema and trace pleural effusion and cardiomegaly. - Echo 06/02 showed LVSF at 35-40%. - Appears stable. - Continue Lasix, Jardiance and Entresto. - Continue I & O's monitoring with daily weights. (11) Diabetes: Code(s): E11.9 - Type 2 diabetes mellitus without complications Status: Acute Assessment and Plan: - A1C is 8.0. - Fairly controlled. - Patient
--- NOTE | 2024-05-29 10:19 | PC.NURSE ---
RN spoke with the [facility] transfer center via telephone. No beds at this time.
--- NOTE | 2024-05-29 11:17 | PC.NURSE ---
RN gave update to [place] via telephone on patient status.
[2024-05-29 12:20] LABS: Glucose Point of Care 233 mg/dl (65-105)
[2024-05-29] MEDS: INSULIN ASPART (*BKC) 100 UNITS/ML 10 UNITS SUB-Q (12:20)
== END 2024-05-29 17:02 | disposition short-term general hospital (02) | DRG 289 ==
LOC: ANHED 05-21 03:46 → ANH3MED 05-21 05:36
PROVIDERS: Nurse Practitioner Adult Health; Physician Assistant; Specialist; Admitting Provider Internal Medicine; Emergency Provider Emergency Medicine; PCP Family Medicine; Visit Provider Nurse Practitioner Adult Health
PROC: B24BZZ4 Ultrasonography of Heart with Aorta, Transesophageal (ICD-10-PCS; CPT 93312; principal; 2024-05-28 10:15)
DX: I33.0 Acute and subacute infective endocarditis (principal); E87.1 Hypo-osmolality and hyponatremia; R78.81 Bacteremia; J81.1 Chronic pulmonary edema; I48.20 Chronic atrial fibrillation, unspecified; B95.61 Methicillin susceptible Staphylococcus aureus infection as the cause of diseases classified elsewhere; E86.0 Dehydration; D69.6 Thrombocytopenia, unspecified; I48.91 Unspecified atrial fibrillation; E80.6 Other disorders of bilirubin metabolism; E11.9 Type 2 diabetes mellitus without complications; E03.9 Hypothyroidism, unspecified; E66.01 Morbid (severe) obesity due to excess calories; F79 Unspecified intellectual disabilities; I11.0 Hypertensive heart disease with heart failure; I50.9 Heart failure, unspecified; K21.9 Gastro-esophageal reflux disease without esophagitis; N32.81 Overactive bladder; Z79.4 Long term (current) use of insulin; Z95.810 Presence of automatic (implantable) cardiac defibrillator; R74.01 Elevation of levels of liver transaminase levels; Z79.01 Long term (current) use of anticoagulants
CPT/HCPCS: 36415; 70450; 71046; 72125; 74177; 76705; 80048; 80053; 80202; 81001; 82565; 82948; 83036; 83605; 83690; 83735; 83935; 84300; 84443; 84484; 85025; 85027; 85055; 85610; 85730; 86140; 87040; 87077; 87181; 87637; 93005; 93312; 93320; 93325; 96361; 96365; 96366; 96367; 96375; 97110; 97161; 97165; 97530; 97535; 99285; A9270; C8929; G0378; J0690; J1170; J1815; J1836; J2405; J2543; J3370; J7030; J7040; J7120; Q9957; Q9967

== ENCOUNTER 2024-06-10 13:46 | Emergency (ER) | payer OTHER, SELFPAY ==
[2024-06-10] VITALS (33 sets, daily range): BP systolic 104–164; BP diastolic 69–120; PULSE 73–101; RESP 14–29; TEMP 36.4; O2SAT 88–100
--- NOTE | ~2024-06-10 | XR_ITS ---
EXAMINATION: XR chest 1V portable DATE: 06/10/2024 20:09 INDICATION: AICD firing. Syncope. TECHNIQUE: frontal view of the chest was obtained. COMPARISON: Chest radiograph dated 05/21/2024 FINDINGS: The lungs are clear with no focal airspace opacities, pulmonary edema, pleural effusion or pneumothor ax. Again seen is an embolized wire projecting over the perihilar right midlung zone. Mild cardiomega ly. Dual lead pacemaker/AICD seen with leads projecting over the expected locations of the right atri um and right ventricle. IMPRESSION: 1. Cardiomegaly. No acute cardiopulmonary disease. Reviewed, dictated and finalized at location A.
--- NOTE | ~2024-06-10 | CT_ITS ---
EXAMINATION: CT abdomen pelvis w con DATE: 06/10/2024 16:29 INDICATION: Abdominal pain. Syncope. TECHNIQUE: Computed tomography (CT) of the abdomen and pelvis was performed with 100 mL Omnipaque-350 intravenous contrast. Automated exposure control and iterative reconstruction technique were employe d. The dose-length product was 1610.58 mGy-cm. COMPARISON: None FINDINGS: Discoid atelectasis in the left lower lobe. Calcified nodules at the lingula and calcified left hilar lymph node consistent with old granulomatous disease. Mild cardiomegaly. Cardiac pacemaker leads at the right atrium and right ventricle. No pericardial or pleural effusion. Small sliding-type hiatal h ernia. Cholecystectomy clips the gallbladder fossa. Liver, spleen, pancreas, bilateral adrenal glands and kidneys are normal. There are few scattered clonic diverticula without adjacent from trace stran ding to suggest diverticulitis. No bowel obstruction. The appendix is not visualized. No pericecal in flammatory change to suggest acute appendicitis. Bladder is normal. Atrophic anteverted uterus and b ilateral adnexa are unremarkable. No free intraperitoneal gas or fluid. No pathologically enlarged ab dominal or pelvic lymphadenopathy. Moderate thoracic and mild lumbar spondylosis with chronic mild an terior wedging at T7. IMPRESSION: 1. Small sliding-type hiatal hernia. No acute intra-abdominal/pelvic process. 2. Cardiomegaly. Reviewed, dictated and finalized at location A.
--- NOTE | ~2024-06-10 | CT_ITS ---
EXAMINATION: CT cervical spine wo con DATE: 06/10/2024 14:38 INDICATION: Fall with head injury TECHNIQUE: Computed tomography (CT) of the cervical spine was performed without intravenous contrast. Automated exposure control and iterative reconstruction technique were employed. The dose-length pro duct was 550.79 mGy-cm. COMPARISON: None FINDINGS: 10 degrees cervical levocurvature. Sagittal alignment is normal. Unchanged mild anterior wedging at C 4 and C5. No acute fracture. Mild disc height loss at C2-C3 through C5-C6. Disc bulges resulting in m ild central canal stenosis at C3-C4 through and C6-C7. Moderate uncovertebral osteoarthritis on the r ight at C3-C4 and C4-C5. Mild uncovertebral osteoarthritis throughout remainder of the cervical spine . Severe facet osteoarthritis on the right at C3-C4. Moderate and mild facet osteoarthritis throughou t the remainder of the cervical spine. Moderate neural foraminal stenosis on the right at C3-C4 and C 4-C5 with mild neural foraminal stenosis at a few of the remaining cervical neural foramina. Small am ount of atherosclerotic calcification at the bilateral carotid bulbs. Cervical soft tissues are other ennis unremarkable. Mild atelectasis at the bilateral apices of the lungs. IMPRESSION: 1. Ionic mild anterior wedging at C4 and C5. No acute osseous or mild to. 2. 10 degrees cervical levocurvature with mild spondylosis. Reviewed, dictated and finalized at location A.
--- NOTE | ~2024-06-10 | CT_ITS ---
EXAMINATION: CT brain wo con DATE: 06/10/2024 14:37 INDICATION: Anticoagulated patient post fall with head injury TECHNIQUE: Computed tomography (CT) of the head was performed without intravenous contrast. Sagittal and coronal reconstructions were performed. The mA was adjusted according to patient size. Iterative reconstruction technique was employed. The dose-length product was 605.33 mGy-cm. COMPARISON: head CT dated 05/21/2024 FINDINGS: No fracture. No acute intracranial hemorrhage, acute infarction or abnormal extra axial fluid collect ion. There is mild scattered white matter hypoattenuation consistent with chronic small vessel ischem ic disease. Symmetric prominence of the sulci consistent with mild age-appropriate diffuse cerebral v olume loss. Ventricles are normal and symmetric. No mass/mass effect. The orbits, paranasal sinuses a nd mastoid air cells are normal. IMPRESSION: 1. No fracture or acute intracranial process. 2. Age-related changes including mild diffuse volume loss and mild scattered white matter hypoattenua tion consistent with chronic small vessel ischemic disease. Reviewed, dictated and finalized at location A. IMPRESSION: 1. No fracture or acute intracranial process. 2. Age-related changes including mild diffuse volume loss and mild scattered wh ite matter hypoattenuation consistent with chronic small vessel ischemic diseas e.
--- NOTE | 2024-06-10 13:56 | ECG_ITS ---
Test Date: 2024-06-10 13:57:19 Measurements Intervals [place] Rate: 72 P: 122 VA: 289 QRS: 218 QRSD: 154 T: 65 QT: 462 QTc: 506 Interpretive Statements SINUS RHYTHM WITH FIRST DEGREE AV BLOCK WITH OCCASIONAL VENTRICULAR PREMATURE COMPLEXES prolonged QTC interval RIGHT AXIS DEVIATION [QRS AXIS > 100] INTRAVENTRICULAR CONDUCTION DELAY [130+ ms QRS DURATION] Compared to ECG 05/21/2024 01:20:37 First degree AV block now present Right-axis deviation now present Atrial fibrillation no longer present Aberrant conduction of supraventricular beat(s) no longer present QTC interval is prolonged Electronically Signed On 06-10-2024 14:20:53 CDT by Kali Polo M.D.
--- NOTE | 2024-06-10 15:39 | ED.GENADULT ---
HPI - General Adult General Chief complaint: Unspecified Stated complaint: N/V Time Seen by Provider: 06/10/24 15:06 Source: patient and EMS Mode of arrival: EMS Limitations: no limitations and clinical condition History of Present Illness HPI narrative: Patient is a 63-year-old female, with past medical history of pacemaker/AICD, AFIB on Xarelto, DM, who presents to the ED via EMS with report of nausea, vomiting, head injury. Patient is a poor historian. She is a resident of [facility]. Daughter at bedside assisted in providing information. Reports patient began having nausea and vomiting around 1215 today. She then had a syncopal episode and fell forward, hitting her head on the ground. Patient does not remember falling, but remembers feeling dizzy/lightheaded. She also reported having chest pain and a headache at that time. Family reports she was shaky and holding her head like she was in pain. EMS reported that patient had a run of VTACH en route to the ED. Patient denies current CP upon my evaluation. C/o BIRCH. Denies significant abdominal pain. Did sustain small laceration to forehead. Tetanus unknown. Patient sees Dr. Flores with Cardiology and Dr. Mcfarland with electrophysiology @ [facility]. Related Data Home Medications Medication Instructions Recorded Confirmed blood sugar diagnostic (OneTouch 06/27/20 05/21/24 Verio test strips) carvedilol 25 mg tablet 25 mg PO BID 06/27/20 05/21/24 diltiazem HCl 30 mg tablet 30 mg PO TID 06/27/20 05/21/24 escitalopram oxalate 10 mg tablet 10 mg PO DAILY 06/27/20 05/21/24 furosemide 40 mg tablet 40 mg PO DAILY 06/27/20 05/21/24 insulin syringe-needle U-100 0.5 06/27/20 05/21/24 mL 31 gauge x 5/16 (Sure Comfort Insulin Syringe) insulin syringe-needle U-100 0.5 06/27/20 05/21/24 mL 31 gauge x 5/16 (TRUEplus Insulin) nortriptyline 10 mg capsule 10 mg PO DAILY 06/27/20 05/21/24 omeprazole 20 mg capsule,delayed 20 mg PO DAILY 06/27/20 05/21/24 release potassium chloride 20 mEq 20 meq PO DAILY 06/27/20 05/21/24 tablet,extended release(part/cryst) rivaroxaban 20 mg tablet (Xarelto) 20 mg PO DAILY 06/27/20 05/21/24 dapagliflozin propanediol 10 mg 10 mg PO DAILY 05/21/24 05/21/24 tablet (Farxiga) docusate sodium 100 mg capsule 100 mg PO BID 05/21/24 05/21/24 ferrous sulfate 325 mg (65 mg 1 mg PO DAILY 05/21/24 05/21/24 iron) tablet (FeroSul) insulin aspart U-100 100 unit/mL 10 unit subcut TIDWMEAL 05/21/24 05/21/24 (3 mL) subcutaneous pen (Novolog FlexPen U-100 Insulin aspart) insulin glargine 100 unit/mL (3 18 unit subcut DAILY 05/21/24 05/21/24 mL) subcutaneous pen (Basaglar KwikPen U-100 Insulin) levothyroxine 75 mcg tablet 75 mcg PO DAILY 05/21/24 05/21/24 sacubitril 24 mg-valsartan 26 mg 1 tablet PO BID 05/21/24 05/21/24 tablet (Entresto) vibegron 75 mg tablet (Gemtesa) 75 mg PO DAILY 05/21/24 05/21/24 Allergies Allergy/AdvReac Type Severity Reaction Status Date / Time Sulfa (Sulfonamide Allergy Mild RASH Verified 09/05/22 21:45 Antibiotics) Review of Systems Review of Systems: All systems reviewed & are unremarkable except as noted in HPI. All systems reviewed & are unremarkable except as noted in HPI and below PMFSH Past Medical History Medical History Atrial fibrillation Bacteremia Diabetes GERD (gastroesophageal reflux disease) HTN (hypertension) Hypothyroidism Overactive bladder Pacemaker Thrombocytopenia Surgical History Surgical History AICD (automatic cardioverter/defibrillator) present Family History Family History Other Unknown family medical history Social History Social History Smoking status: Never smoker Alcohol intake: never Substance use: current Subs
[2024-06-10 15:45] LABS: Basophils Absolute Auto 0.1 K/mm3 (0.0-0.1); Basophils Percent Auto 0.8 % (0.2-1.2); Eosinophils Absolute Auto 0.1 K/mm3 (0-0.3); Eosinophils Percent Auto 0.8 % (0-4.4); Hematocrit 40.5 % (37.0-47.0); Hemoglobin 13.3 g/dL (12.0-15.0); Immature Granulocyte Absolute 0.04 K/mm3 (0.00-0.031); Immature Granulocyte Percent A 0.5 % (0-0.5); Lymphocytes Absolute Auto 0.85 K/mm3 (0.9-3.2); Lymphocytes Percent Auto 9.8 % (18.3-44.2); Mean Corpuscular HGB Conc 32.8 g/dl (32-36); Mean Corpuscular Hemoglobin 32.9 pg (26-34); Mean Corpuscular Volume 100.2 fl (80-100); Mean Platelet Volume 9.2 fl (7.4-10.4); Monocytes Absolute Auto 0.5 K/mm3 (0.1-0.6); Neutrophils Absolute Auto 7.2 K/mm3 (1.3-6.7); Neutrophils Percent Auto 82.1 % (45.5-73.1); Platelet Count Result 319 k/mm3 (150-375); Red Blood Count 4.04 M/mm3 (4.2-5.4); Red Cell Distribution Width 12.7 % (11.5-14.5); White Blood Count 8.7 K/mm3 (4.5-10.0)
[2024-06-10 15:56] LABS: Alanine Aminotransferase 12 U/L (6-35); Albumin Level 3.9 g/dL (3.5-5.1); Alkaline Phosphatase 250 U/L (38-126); Anion Gap 8 mmol/L (4-12); Aspartate Amino Transferase 42 U/L (14-36); Bilirubin,Total 0.7 mg/dL (0.2-1.3); Blood Urea Nitrogen 21 mg/dL (7-17); Calcium 9.3 mg/dL (8.4-10.2); Carbon Dioxide 33 mmol/L (22-30); Chloride 97 mmol/L (98-107); Estimated CRCL calculation 95 ml/min; Estimated Glomerular Filt Rate > 60; Glucose 114 mg/dL (65-110); Lipase 44 U/L (23-300); Magnesium 2.2 mg/dL (1.6-2.3); Potassium 3.5 mmol/L (3.4-5.0); Sodium 138 mmol/L (137-145)
[2024-06-10 15:57] LABS: INR 1.6; Partial Thromboplastin Time 29.5 Seconds (22.3-36.8); Prothrombin Time 19.3 Seconds (11.1-14.7)
[2024-06-10 16:08] LABS: Troponin I 0.018 ng/mL (0.000-0.034)
[2024-06-10] MEDS: SODIUM CHLORIDE 0.9% IV 1,000 ML 999 ML IV CONT (16:12)
[2024-06-10] MEDS: ACETAMINOPHEN 500 MG TABLET 1000 MG PO (16:13)
[2024-06-10] MEDS: TETANUS,DIPHTHERIA,AC PERTUSSIS ADULT (0.5 ML) BOOSTRIX IM (16:13)
[2024-06-10 16:21] LABS: Influenza A QL RT-PCR Negative (Negative); Influenza B QL RT-PCR Negative (Negative); RSV RNA, RT-PCR Negative (Negative); SARS-CoV-2 RNA PCR Negative (Negative)
[2024-06-10 20:47] LABS: NT Pro B Type Natriuretic Pept 1600 pg/mL (19.9-100)
[2024-06-10 21:33] LABS: Bacteria Urine None Seen /hpf; Need Manual Microscopic Reviewed; Non Pathogenic Casts 0-2; Squamous Epithelial Cell Urine None Seen /hpf (Few); WBC Urine 0-5 /hpf (0-3)
--- NOTE | 2024-06-10 21:34 | PC.NURSE ---
[facility] accepted patient room 312 bed-1. Report called to [phone].
[2024-06-10 21:40] LABS: Appearance Urine Clear (Clear); Bilirubin Urine Negative (Negative); Blood Urine Trace-Lysed (Negative); Color Urine Yellow (Yellow); Glucose Urine UA 3+ mg/dL (Negative); Ketones Urine Trace mg/dL (Negative); Nitrate Urine Negative (Negative); Protein Urine Negative (Negative)
[2024-06-10 21:41] LABS: Add Urine Microscopic? YES; Leukocyte Esterase Ur Negative LEU/UL (Negative)
[2024-06-10 22:20] LABS: Troponin I 0.028 ng/mL (0.000-0.034)
== END 2024-06-10 23:04 | disposition short-term general hospital (02) ==
PROVIDERS: Emergency Provider Physician Assistant
DX: I47.20 Ventricular tachycardia, unspecified (principal); R55 Syncope and collapse; S01.01XA Laceration without foreign body of scalp, initial encounter; R11.2 Nausea with vomiting, unspecified; Z95.810 Presence of automatic (implantable) cardiac defibrillator; Z20.822 Contact with and (suspected) exposure to COVID-19; W19.XXXA Unspecified fall, initial encounter; E11.9 Type 2 diabetes mellitus without complications; K21.9 Gastro-esophageal reflux disease without esophagitis; I10 Essential (primary) hypertension; E03.9 Hypothyroidism, unspecified; Z23 Encounter for immunization
CPT/HCPCS: 12001; 36415; 70450; 71045; 72125; 74177; 80053; 81001; 83690; 83735; 83880; 84484; 85025; 85610; 85730; 87637; 90471; 90715; 93005; 96360; 99285; A9270; J7030; Q9967

== ENCOUNTER 2024-06-28 15:27 | Inpatient (IN) | payer OTHER, SELFPAY ==
[2024-06-28] VITALS (10 sets, daily range): BP systolic 95–155; BP diastolic 39–95; PULSE 98–110; RESP 19–29; TEMP 36.6–36.7; O2SAT 89–100
--- NOTE | ~2024-06-28 | CT_ITS ---
EXAMINATION: CT thoracic lumbar w con DATE: 07/02/2024 12:03 INDICATION: Back pain. TECHNIQUE: Computed tomography (CT) of the thoracic and lumbar spine was performed with 100 mL Omnipa que 350 intravenous contrast. Automated exposure control and iterative reconstruction technique were employed. The dose-length product was 2374.31 mGy-cm. COMPARISON: chest single view 09/05/22 FINDINGS: CT THORACIC SPINE: A calcified left lung nodule and calcified left hilar lymph nodes are consistent w ith old granulomatous disease. There is a 9 mm nodule in left lower lobe. There is a 14 mm nodule in right upper lobe. There is a wire in a right lower lobe pulmonary artery. There is a left chest wall pacer with leads in the right atrium and right ventricle. The central pulmonary arteries are enlarged , consistent with pulmonary arterial hypertension. There are changes of cholecystectomy. There is 6 d egrees dextrocurvature of thoracic spine. There is mild chronic anterior wedging of T5-T8 vertebral b odies and T11 vertebral body. There is mildly decreased disc height at multiple levels. There is mode rately decreased disc height at T6-T7 and T7-T8. There is multilevel facet joint osteoarthritis, chaya re at many levels. There is multilevel mild neural foraminal stenosis on either side. There is mild c entral canal stenosis at T7-T8. CT LUMBAR SPINE: There is a small sliding hiatal hernia. There is 6 degrees levocurvature of cervical lumbar spine. Vertebral body heights are normal. Intervertebral disc heights are normal. The followi ng disc levels are specifically discussed: L1-L2: The disc is bulging. There is severe right and moderate left facet joint osteoarthritis. There is mild bilateral neural foraminal stenosis. There is mild central canal stenosis. L2-L3: The disc is bulging. There is severe right and moderate left facet joint osteoarthritis. There is mild bilateral neural foraminal stenosis. There is mild central canal stenosis. L3-L4: The disc is bulging. There is severe bilateral facet joint osteoarthritis. There is mild bilat eral neural foraminal stenosis. There is mild central canal stenosis. L4-L5: The disc is bulging. There is severe bilateral facet joint osteoarthritis. There is mild bilat eral neural foraminal stenosis. There is mild central canal stenosis. L5-S1: The disc is bulging. There is severe bilateral facet joint osteoarthritis. There is mild bilat eral neural foraminal stenosis. There is mild central canal stenosis. IMPRESSION: 1. Moderate thoracic spondylosis and mild lumbar spondylosis. 2. Mild pulmonary edema. 3. Pulmonary nodules in right upper lobe and left lower lobe, which may be infection. Noncontrast low -dose chest CT is recommended in 1-3 months to exclude malignancy. 4. Embolized wire in a right lower lobe pulmonary artery, unchanged from 09/05/22. Reviewed, dictated and finalized at location A. IMPRESSION: 1. Moderate thoracic spondylosis and mild lumbar spondylosis. 2. Mild pulmonary edema. 3. Pulmonary nodules in right upper lobe and left lower lobe, which may be infe ction. Noncontrast low-dose chest CT is recommended in 1-3 months to exclude ma lignancy. 4. Embolized wire in a right lower lobe pulmonary artery, unchanged from .
--- NOTE | ~2024-06-28 | US_ITS ---
US renal BI DATE: 07/01/2024 14:24 INDICATION: Flank pain TECHNIQUE: Real-time and color flow imaging of the kidneys and urinary bladder COMPARISON; 06/28/2024 CT abdomen FINDINGS: Right kidney measures 13.9 cm sagittal, 5.8 cm AP and 5.2 cm transverse dimension. Left kidney measures 14.8 cm sagittal, 8.8 cm AP and 6.1 cm transverse dimension. No hydronephrosis or renal mass lesion is noted on either side. There is limited distention of the urinary bladder which appears grossly unremarkable. IMPRESSION: No significant abnormality Reviewed, dictated and finalized at [facility]. Reviewed, dictated and finalized at location A. IMPRESSION: No significant abnormality
--- NOTE | ~2024-06-28 | CT_ITS ---
CT abd pelvis lumbar wo con Ordering provider: Mia Rios MD History: 63 years Female with . R flank pain . Comparison: June 10, 2024 Technique: CT abdomen and pelvis without IV and without oral contrast. Automated exposure control and iterative reconstruction technique were employed. The dose-length product was 1618.46 mGy-cm. Findings: VISUALIZED LOWER CHEST: Dependent Atelectatic changes in the lung bases. Nodule in the left lower lob e measuring 1 cm. 3 months follow-up CT advised. Cardiomegaly with trace of pericardial effusion. UPPER ABDOMINAL ORGANS: Liver: Normal. Gallbladder: Status post cholecystectomy. Spleen: Normal. Stomach/duodenum: Small sliding hiatus hernia Pancreas: Normal. Adrenals: Normal. Kidneys: Normal. PELVIC ORGANS: The bladder is normal. Air is seen in the urinary bladder which may be due to cathete rization. Clinical correlation advised. Infection cannot be excluded.0 BOWEL AND MESENTERY: Colon: No evidence of diverticulitis. Appendix is not demonstrated. Small Bowel: Normal. No obstruction. Peritoneum/mesentery: No free air or free fluid. No mesenteric lymphadenopathy. RETROPERITONEUM: Mild atheromatous disease of the abdominal aorta. No retroperitoneal lymphadenopat hy. MUSCULOSKELETAL: Superficial soft tissues: The superficial soft tissues are normal. Bones: Age appropriate degenerative changes of the spine. Bilateral sacroiliacs. IMPRESSION: 1. No acute abdominal process with no evidence of appendicitis, diverticulitis or intestinal obstruc tion. No kidney stones seen. 2. Sliding hiatus hernia. CT abd pelvis lumbar wo con Ordering provider: Mia Rios MD History: 63 years Female with . R flank pain . Comparison: None. Technique: CT lumbar spine without contrast. Automated exposure control and iterative reconstruction technique were employed. The dose-length product was 1618.46 mGy-cm. FINDINGS: VERTEBRAE: Normal height and alignment. No subluxation or visible acute fracture. Degenerative change s. DISC SPACES: Well maintained. Multilevel facet joint disease. Diffuse disc bulge at the level of L3-4 with left posterolateral disc protrusion with narrowing with root compression. PARASPINOUS SOFT TISSUES: Normal. Bilateral sacroiliitis. IMPRESSION: No acute osseous abnormality seen. Reviewed, dictated and finalized at location A. IMPRESSION: 1. No acute abdominal process with no evidence of appendicitis, diverticulitis or intestinal obstruction. No kidney stones seen. 2. Sliding hiatus hernia. CT abd pelvis lumbar wo con Ordering provider: Mia Rios MD History: 63 years Female with . R flank pain . Comparison: None. Technique: CT lumbar spine without contrast. Automated exposure control and it erative reconstruction technique were employed. The dose-length product was 161 8.46 mGy-cm. FINDINGS: VERTEBRAE: Normal height and alignment. No subluxation or visible acute fractur e. Degenerative changes. DISC SPACES: Well maintained. Multilevel facet joint disease. Diffuse disc bulge at the level of L3-4 with left posterolateral disc protrusio n with narrowing with root compression. PARASPINOUS SOFT TISSUES: Normal. Bilateral sacroiliitis.
--- NOTE | ~2024-06-28 | CT_ITS ---
CT cervical spine w con Ordering provider: Raymundo Hadley MD History: . neck pain . Comparison: None. Technique: CT of the cervical spine was performed without contrast. Sagittal and coronal reformatted images were also obtained and reviewed. Automated exposure control and iterative reconstruction magnolia hnique were employed. The dose-length product was 591.74 mGy-cm. FINDINGS: VERTEBRAE: Small bony fragment seen anterior to the C1-C2 joints which may be old fracture or nonunit ed apophysis. Fracture is less likely. Follow-up advised. Otherwise, No subluxation or acute fracture . The occipital condyles are intact. DISC SPACES: Narrowing of the disc C3-C4, C4-C5, and C5-C6. Multilevel facet joint disease. Narrowing of the foramina at the level of C3-C4. Narrowing of the right foramen at the level of C4-C5 bilateral narrowing of the foramina at the level of C5-C6. PARASPINOUS SOFT TISSUES: Normal. IMPRESSION: No definite acute osseous abnormality cervical spine. Multilevel degenerative disc disease with variable degrees of intervertebral foraminal narrowing. Reviewed, dictated and finalized at location A. IMPRESSION: No definite acute osseous abnormality cervical spine. Multilevel degenerative disc disease with variable degrees of intervertebral f oraminal narrowing.
--- NOTE | ~2024-06-28 | XR_ITS ---
EXAMINATION: XR chest 1V portable DATE: 06/30/2024 09:47 INDICATION: Hypoxia. TECHNIQUE: A single frontal view of the chest was obtained. COMPARISON: Chest single view 06/10/2024, CT abdomen and pelvis 06/28/2024 FINDINGS: There is a diffuse interstitial pattern, consistent with mild pulmonary edema. No pleural e ffusion or pneumothorax. Cardiomegaly is noted. There is a left chest wall pacer with leads in the ri ght atrium and right ventricle. IMPRESSION: 1. Mild pulmonary edema. 2. Cardiomegaly. Reviewed, dictated and finalized at location A.
--- NOTE | ~2024-06-28 | CT_ITS ---
CT diagnostic chest wo con Ordering provider: Desmond Torres MD History: 63 years Female with . pulm nodules . Comparison: None. Technique: CT chest without IV contrast. Radiation reduction technique utilized. The dose-length product was 805.88 mGy-cm. FINDINGS: VISUALIZED THORACIC INLET: Normal. MEDIASTINUM: Aorta/coronary arteries: Mild atheromatous disease. Heart/other: The heart is slightly enlarged. Mild Pericardial effusion is noted prominent pulmonary artery which may indicate pulmonary hypertension. Lymph nodes: No mediastinal or hilar adenopathy. Paratracheal lymph nodes the largest measures 1.3 cm . LUNGS: Nodule in the right upper lobe posteriorly measuring 1.3 cm. PET scan or 3 months follow-up ad vised. Nodule in the right upper lobe is noted measuring 6 mm. Tiny nodule seen in the right lower lo be laterally measuring 4 mm. Nodule in the left lower lobe measuring 1.2 cm. Subsegmental left basila r atelectasis seen posteriorly. Atelectatic changes seen in the left lung base No infiltrates or effusions. No pneumothorax. VISUALIZED UPPER ABDOMEN: Sliding hiatus hernia. Status post cholecystectomy. Small left adrenal kaila ada measuring 1.7 cm. Otherwise, the visualized upper abdomen is normal. MUSCULOSKELETAL: Soft tissues: The superficial soft tissues are normal. Bones: Age appropriate degenerative changes of the spine. IMPRESSION: 1. Cardiomegaly with pericardial effusion. 2. Multiple nodules bilaterally with the largest in the right upper lobe measuring 1.[address] scan or PET scan follow-up advised. 3. Sliding hiatus hernia. Reviewed, dictated and finalized at location A. IMPRESSION: 1. Cardiomegaly with pericardial effusion. 2. Multiple nodules bilaterally with the largest in the right upper lobe measu ring 1.[address] scan or PET scan follow-up advised. 3. Sliding hiatus hernia.
[2024-06-28 19:16] LABS: Glucose Point of Care 186 mg/dl (65-105)
[2024-06-28] MEDS: SODIUM CHLORIDE 0.9% IV 1,000 ML 999 ML IV CONT (19:18)
--- NOTE | 2024-06-28 19:25 | ED.FEMALEGU ---
HPI - Female Genitourinary General Chief complaint: Urogenital-Female Stated complaint: flank pain Time Seen by Provider: 06/28/24 18:30 History of Present Illness HPI Narrative: 63-year-old female presenting with right flank pain. States that it started earlier today. Associated with foul-smelling urine. States that sometimes it feels like the pain goes down her right leg. No numbness or weakness. No further complaints. Related Data Home Medications Medication Instructions Recorded Confirmed escitalopram oxalate 10 mg tablet 10 mg PO DAILY 06/27/20 06/29/24 nortriptyline 10 mg capsule 10 mg PO HS 06/27/20 06/29/24 omeprazole 20 mg capsule,delayed 20 mg PO DAILY 06/27/20 06/29/24 release potassium chloride 20 mEq 20 meq PO DAILY 06/27/20 06/29/24 tablet,extended release(part/cryst) rivaroxaban 20 mg tablet (Xarelto) 20 mg PO DAILY 06/27/20 06/29/24 docusate sodium 100 mg capsule 100 mg PO BID 05/21/24 06/29/24 insulin aspart U-100 100 unit/mL 10 unit subcut TIDWMEAL 05/21/24 06/29/24 (3 mL) subcutaneous pen (Novolog FlexPen U-100 Insulin aspart) insulin glargine 100 unit/mL (3 18 unit subcut DAILY 05/21/24 06/29/24 mL) subcutaneous pen (Basaglar KwikPen U-100 Insulin) levothyroxine 75 mcg tablet 75 mcg PO DAILY 05/21/24 06/29/24 sacubitril 24 mg-valsartan 26 mg 1 tablet PO BID 05/21/24 06/29/24 tablet (Entresto) vibegron 75 mg tablet (Gemtesa) 75 mg PO DAILY 05/21/24 06/29/24 insulin aspart U-100 100 unit/mL See Rx Instructions .Route .COMPLEX 06/29/24 06/29/24 (3 mL) subcutaneous pen (Novolog FlexPen U-100 Insulin aspart) magnesium oxide 400 mg (241.3 mg 400 mg PO DAILY 06/29/24 06/29/24 magnesium) tablet metoprolol succinate 50 mg 50 mg PO DAILY 06/29/24 06/29/24 tablet,extended release 24 hr midodrine 5 mg tablet 2.5 mg PO Q12H PRN Hypotension 06/29/24 06/29/24 Allergies Allergy/AdvReac Type Severity Reaction Status Date / Time Sulfa (Sulfonamide Allergy Mild RASH Verified 06/28/24 15:44 Antibiotics) Review of Systems Review of Systems: All systems reviewed & are unremarkable except as noted in HPI and below PMFSH Past Medical History Medical History Atrial fibrillation Bacteremia Diabetes GERD (gastroesophageal reflux disease) HTN (hypertension) Hypothyroidism Overactive bladder Pacemaker Thrombocytopenia Surgical History Surgical History AICD (automatic cardioverter/defibrillator) present Family History Family History Other Unknown family medical history Social History Social History Smoking status: Former smoker Alcohol intake: never Substance use: current Substance use type: marijuana Do You Feel Safe in your Home?: Yes Lack of Transportation: No Lack of Food: Never True Current Housing: I Have Housing Concerned About Future Housing: No Difficulty Paying Gas/Electric Bills: No Difficulty Paying for Meds: No Currently Unemployed: No Education: Grade School Difficulty w/ Childcare or Family Care: No Gender identity (if verbalized by the patient): Female Spiritual care concerns: No Exam Narrative: GENERAL: Chronically ill-appearing, requires a lot of redirection during history HEAD: Normocephalic, atraumatic. EYES: PERRLA and EOMI. ENT: Grossly unremarkable NECK: Supple. CHEST: Clear to auscultation. No respiratory distress. HEART: Regular rate and rhythm ABDOMEN: Soft, mildly diffusely tender; +R CVA tenderness BACK: +R paraspinal tenderness down to buttocks EXTREMITIES: Normal range of motion. SKIN: Warm, dry, no rash. NEURO: Alert and oriented x3. PSYCH: Normal mood and affect. Course Vital Signs Vital signs: Vital Signs Temperature 98.1 F 06/28/24 15:50 Pulse Rate 98 06/28/24 15:50 Respiratory Rate 20 06/28/24 15:50 Blood Pressure 119/69 06/28/24 15:50 Pulse Oximetry 96 06/28/24 15:50 Oxygen Delivery Room Air 06/28/24 15:50 Temperature 97.7 F 07/06/24 19:29 Pulse Rate 97 07/06/24 20:00 Respiratory Rate 20 07/06/24 20:00 Blood Pressure 128/85 07/06/24 19:29 Pulse Oximetry 95 07/06/24 20:00 Oxygen Delivery Room Air 07/06/24 20:00 Oxygen Flow Rate 2 07/01/24 08:14 Fraction of Inspired Oxygen 21 07/06/24 20:00 MDM - Female Genitourinary MDM Narrative Medical decision making narrative: 63-year-old female presenting with right flank pain. Vitals within normal limits. Exam remarkable for the above. Workup is remarkable for a UTI. CT abdomen pelvis shows no acute abnormalities. CT lumbar spine shows no acute abnormalities. While awaiting her workup, patient's heart rate has been increasing and she is now in AFib with RVR. She does have a history of AFib and she is anticoagulated. IV Rocephin has been ordered as well as diltiazem drip. She requires admission for further management. She and her sister are agreeable with this plan. I spoke with the hospitalist who has accepted her for admission. Differential Diagnosis Differential diagnosis: Likely urinary tract infection and other (Abdominal pain, flank pain, ureterolithiasis, AFib with RVR) Medical Records Attestation: I reviewed the patient's medical records. Lab Data Attestation: I reviewed the patient's lab results. 07/06/24 05:36 07/06/24 05:36 Labs: Lab Results 06/28/24 06/28/24 06/28/24 Range/Units 19:14 19:19 19:57 WBC 6.2 (4.5-10.0) K/mm3 RBC 3.56 L (4.2-5.4) M/mm3 Hgb 11.9 L (12.0-15.0) g/dL Hct 35.6 L (37.0-47.0) % MCV 100.0 (80-100) fl MCH 33.4 (26-34) pg MCHC 33.4 (32-36) g/dl RDW 13.4 (11.5-14.5) % Plt Count 119 L D (150-375) k/mm3 MPV 10.4 (7.4-10.4) fl Immature Gran % (Auto) 0.2 (0-0.5) % Neut % (Auto) 88.2 H (45.5-73.1) % Lymph % (Auto) 5.3 L (18.3-44.2) % Saunders % (Auto) 5.5 (2.6-8.5) % Eos % (Auto) 0.3 (0-4.4) % Baso % (Auto) 0.5 (0.2-1.2) % Lymph # (Auto) 0.33 L (0.9-3.2) K/mm3 Saunders # (Auto) 0.3 (0.1-0.6) K/mm3 Eos # (Auto) 0.0 (0-0.3) K/mm3 Baso # (Auto) 0.0 (0.0-0.1) K/mm3 Abs Immat Gran (auto) 0.01 (0.00-0.031) K/mm3 Absolute Neuts (auto) 5.5 (1.3-6.7) K/mm3 Absolute Nucleated RBC 0.000 (0.0-0.012) K/mm3 Nucleated RBC % 0.0 (0.0-0.2) % % Immature Plt Fraction 4.2 (0.9-11.2) % Sodium 129 L (137-145) mmol/L Potassium 4.5 (3.4-5.0) mmol/L Chloride 94 L (98-107) mmol/L Carbon Dioxide 26 (22-30) mmol/L Anion Gap 9 (4-12) mmol/L BUN 22 H (7-17) mg/dL Creatinine 0.70 (0.7-1.0) mg/dL Estim Creat Clear Calc Not Reportable Estimated GFR > 60 (59 - ) Glucose 192 H (65-110) mg/dL POC Capillary Glucose 186 H (65-105) mg/dl Serum Osmolality (278-305) mOsm/kg Calcium 9.2 (8.4-10.2) mg/dL Magnesium (1.6-2.3) mg/dL Total Bilirubin 1.3 (0.2-1.3) mg/dL AST 48 H (14-36) U/L ALT 24 (6-35) U/L Alkaline Phosphatase 195 H (38-126) U/L Troponin I < 0.012 (0.000-0.034) ng/mL Total Protein 7.0 (6.3-8.2) g/dL Albumin 3.4 L (3.5-5.1) g/dL Lipase 18 L (23-300) U/L TSH (Reflex) (0.465-4.68) uIU/mL Cortisol Baseline ug/dL Urine Color Yellow (Yellow) Urine Appearance Cloudy H (Clear) Urine pH 5.0 (5.0-9.0) Ur Specific [place] 1.038 H (1.001-1.035) Urine Protein 1+ H (Negative) mg/dL Urine Glucose (UA) 3+ H (Negative) mg/dL Urine Ketones 1+ H (Negative) mg/dL Ur Blood (Man) 3+ H (Negative) Urine Nitrate Positive H (Negative) Urine Bilirubin Negative (Negative) Urine Urobilinogen 1.0 (<2.0) mg/dL Leukocyte Esterase Rfl Negative (Negative) LETICIA/UL Urine RBC >100 H (0-2) /hpf Urine WBC 0-5 (0-3) /hpf Ur Squamous Epith Cells None seen (Few) /hpf Urine Bacteria 4+ H /hpf Urine Casts 0-2 06/28/24 06/28/24 06/29/24 Range/Units 22:24 22:38 12:22 WBC (4.5-10.0) K/mm3 RBC (4.2-5.4) M/mm3 Hgb (12.0-15.0) g/dL Hct (37.0-47.0) % MCV (80-100) fl MCH (26-34) pg MCHC (32-36) g/dl RDW (11.5-14.5) % Plt Count (150-375) k/mm3 MPV (7.4-10.4) fl Immature Gran % (Auto) (0-0.5) % Neut % (Auto) (45.5-73.1) % Lymph % (Auto) (18.3-44.2) % Saunders % (Auto) (2.6-8.5) % Eos % (Auto) (0-4.4) % Baso % (Auto) (0.2-1.2) % Lymph # (Auto) (0.9-3.2) K/mm3 Saunders # (Auto) (0.1-0.6) K/mm3 Eos # (Auto) (0-0.3) K/mm3 Baso # (Auto) (0.0-0.1) K/mm3 Abs Immat Gran (auto) (0.00-0.031) K/mm3 Absolute Neuts (auto) (1.3-6.7) K/mm3 Absolute Nucleated RBC (0.0-0.012) K/mm3 Nucleated RBC % (0.0-0.2) % % Immature Plt Fraction (0.9-11.2) % Sodium (137-145) mmol/L Potassium (3.4-5.0) mmol/L Chloride (98-107) mmol/L Carbon Dioxide (22-30) mmol/L Anion Gap (4-12) mmol/L BUN (7-17) mg/dL Creatinine (0.7-1.0) mg/dL Estim Creat Clear Calc Estimated GFR (59 - ) Glucose (65-110) mg/dL POC Capillary Glucose 157 H 186 H (65-105) mg/dl Serum Osmolality (278-305) mOsm/kg Calcium (8.4-10.2) mg/dL Magnesium (1.6-2.3) mg/dL Total Bilirubin (0.2-1.3) mg/dL AST (14-36) U/L ALT (6-35) U/L Alkaline Phosphatase (38-126) U/L Troponin I < 0.012 (0.000-0.034) ng/mL Total Protein (6.3-8.2) g/dL Albumin (3.5-5.1) g/dL Lipase (23-300) U/L TSH (Reflex) (0.465-4.68) uIU/mL Cortisol Baseline ug/dL Urine Color (Yellow) Urine Appearance (Clear) Urine pH (5.0-9.0) Ur Specific [place] (1.001-1.035) Urine Protein (Negative) mg/dL Urine Glucose (UA) (Negative) mg/dL Urine Ketones (Negative) mg/dL Ur Blood (Man) (Negative) Urine Nitrate (Negative) Urine Bilirubin (Negative) Urine Urobilinogen (<2.0) mg/dL Leukocyte Esterase Rfl (Negative) LETICIA/UL Urine RBC (0-2) /hpf Urine WBC (0-3) /hpf Ur Squamous Epith Cells (Few) /hpf Urine Bacteria /hpf Urine Casts 06/29/24 06/30/24 06/30/24 Range/Units 19:51 04:06 07:46 WBC 7.5 (4.5-10.0) K/mm3 RBC 3.34 L (4.2-5.4) M/mm3 Hgb 11.0 L (12.0-15.0) g/dL Hct 33.3 L (37.0-47.0) % MCV 99.7 (80-100) fl MCH 32.9 (26-34) pg MCHC 33.0 (32-36) g/dl RDW 14.0 (11.5-14.5) % Plt Count 123 L (150-375) k/mm3 MPV 10.1 (7.4-10.4) fl Immature Gran % (Auto) 0.7 H (0-0.5) % Neut % (Auto) 76.2 H (45.5-73.1) % Lymph % (Auto) 8.7 L (18.3-44.2) % Saunders % (Auto) 12.4 H (2.6-8.5) % Eos % (Auto) 1.6 (0-4.4) % Baso % (Auto) 0.4 (0.2-1.2) % Lymph # (Auto) 0.65 L (0.9-3.2) K/mm3 Saunders # (Auto) 0.9 H (0.1-0.6) K/mm3 Eos # (Auto) 0.1 (0-0.3) K/mm3 Baso # (Auto) 0.0 (0.0-0.1) K/mm3 Abs Immat Gran (auto) 0.05 H (0.00-0.031) K/mm3 Absolute Neuts (auto) 5.7 (1.3-6.7) K/mm3 Absolute Nucleated RBC 0.000 (0.0-0.012) K/mm3 Nucleated RBC % 0.0 (0.0-0.2) % % Immature Plt Fraction 4.2 (0.9-11.2) % Sodium 123 L (137-145) mmol/L Potassium 4.2 (3.4-5.0) mmol/L Chloride 88 L (98-107) mmol/L Carbon Dioxide 27 (22-30) mmol/L Anion Gap 8 (4-12) mmol/L BUN 18 H (7-17) mg/dL Creatinine 0.70 (0.7-1.0) mg/dL Estim Creat Clear Calc 92 Estimated GFR > 60 (59 - ) Glucose 205 H (65-110) mg/dL POC Capillary Glucose 291 H 190 H (65-105) mg/dl Serum Osmolality (278-305) mOsm/kg Calcium 8.3 L (8.4-10.2) mg/dL Magnesium 2.2 (1.6-2.3) mg/dL Total Bilirubin 1.1 (0.2-1.3) mg/dL AST 24 (14-36) U/L ALT 18 (6-35) U/L Alkaline Phosphatase 194 H (38-126) U/L Troponin I < 0.012 (0.000-0.034) ng/mL Total Protein 7.0 (6.3-8.2) g/dL Albumin 3.0 L (3.5-5.1) g/dL Lipase (23-300) U/L TSH (Reflex) (0.465-4.68) uIU/mL Cortisol Baseline ug/dL Urine Color (Yellow) Urine Appearance (Clear) Urine pH (5.0-9.0) Ur Specific [place] (1.001-1.035) Urine Protein (Negative) mg/dL Urine Glucose (UA) (Negative) mg/dL Urine Ketones (Negative) mg/dL Ur Blood (Man) (Negative) Urine Nitrate (Negative) Urine Bilirubin (Negative) Urine Urobilinogen (<2.0) mg/dL Leukocyte Esterase Rfl (Negative) LETICIA/UL Urine RBC (0-2) /hpf Urine WBC (0-3) /hpf Ur Squamous Epith Cells (Few) /hpf Urine Bacteria /hpf Urine Casts 06/30/24 06/30/24 Range/Units 09:30 11:25 WBC (4.5-10.0) K/mm3 RBC (4.2-5.4) M/mm3 Hgb (12.0-15.0) g/dL Hct (37.0-47.0) % MCV (80-100) fl MCH (26-34) pg MCHC (32-36) g/dl RDW (11.5-14.5) % Plt Count (150-375) k/mm3 MPV (7.4-10.4) fl Immature Gran % (Auto) (0-0.5) % Neut % (Auto) (45.5-73.1) % Lymph % (Auto) (18.3-44.2) % Saunders % (Auto) (2.6-8.5) % Eos % (Auto) (0-4.4) % Baso % (Auto) (0.2-1.2) % Lymph # (Auto) (0.9-3.2) K/mm3 Saunders # (Auto) (0.1-0.6) K/mm3 Eos # (Auto) (0-0.3) K/mm3 Baso # (Auto) (0.0-0.1) K/mm3 Abs Immat Gran (auto) (0.00-0.031) K/mm3 Absolute Neuts (auto) (1.3-6.7) K/mm3 Absolute Nucleated RBC (0.0-0.012) K/mm3 Nucleated RBC % (0.0-0.2) % % Immature Plt Fraction (0.9-11.2) % Sodium (137-145) mmol/L Potassium (3.4-5.0) mmol/L Chloride (98-107) mmol/L Carbon Dioxide (22-30) mmol/L Anion Gap (4-12) mmol/L BUN (7-17) mg/dL Creatinine (0.7-1.0) mg/dL Estim Creat Clear Calc Estimated GFR (59 - ) Glucose (65-110) mg/dL POC Capillary Glucose 259 H (65-105) mg/dl Serum Osmolality 278 (278-305) mOsm/kg Calcium (8.4-10.2) mg/dL Magnesium (1.6-2.3) mg/dL Total Bilirubin (0.2-1.3) mg/dL AST (14-36) U/L ALT (6-35) U/L Alkaline Phosphatase (38-126) U/L Troponin I (0.000-0.034) ng/mL Total Protein (6.3-8.2) g/dL Albumin (3.5-5.1) g/dL Lipase (23-300) U/L TSH (Reflex) 2.830 (0.465-4.68) uIU/mL Cortisol Baseline 18.30 ug/dL Urine Color (Yellow) Urine Appearance (Clear) Urine pH (5.0-9.0) Ur Specific [place] (1.001-1.035) Urine Protein (Negative) mg/dL Urine Glucose (UA) (Negative) mg/dL Urine Ketones (Negative) mg/dL Ur Blood (Man) (Negative) Urine Nitrate (Negative) Urine Bilirubin (Negative) Urine Urobilinogen (<2.0) mg/dL Leukocyte Esterase Rfl (Negative) LETICIA/UL Urine RBC (0-2) /hpf Urine WBC (0-3) /hpf Ur Squamous Epith Cells (Few) /hpf Urine Bacteria /hpf Urine Casts Imaging Data Radiologist's impression: ITS Impressions Miscellaneous CT Procedure 06/28/24 21:54 IMPRESSION: 1. No acute abdominal process with no evidence of appendicitis, diverticulitis or intestinal obstruction. No kidney stones seen. 2. Sliding hiatus hernia. CT abd pelvis lumbar wo con Ordering provider: Mia Rios MD History: 63 years Female with . R flank pain . Comparison: None. Technique: CT lumbar spine without contrast. Automated exposure control and iterative reconstruction technique were employed. The dose-length product was 1618.46 mGy-cm. FINDINGS: VERTEBRAE: Normal height and alignment. No subluxation or visible acute fracture. Degenerative changes. DISC SPACES: Well maintained. Multilevel facet joint disease. Diffuse disc bulge at the level of L3-4 with left posterolateral disc protrusion with narrowing with root compression. PARASPINOUS SOFT TISSUES: Normal. Bilateral sacroiliitis. IMPRESSION: No acute osseous abnormality seen. Critical Care Time Critical Care Time Critical Care Time: Yes Total Critical Care Time: 32 Discharge Plan Discharge Clinical Impression: Atrial fibrillation with rapid ventricular response, UTI (urinary tract infection) Patient Disposition: Still a Patient Condition: Stable
[2024-06-28 19:26] LABS: Basophils Percent Auto 0.5 % (0.2-1.2); Eosinophils Percent Auto 0.3 % (0-4.4); Hematocrit 35.6 % (37.0-47.0); Hemoglobin 11.9 g/dL (12.0-15.0); Immature Granulocyte Absolute 0.01 K/mm3 (0.00-0.031); Immature Granulocyte Percent A 0.2 % (0-0.5); Immature Platelet Fraction Pct 4.2 % (0.9-11.2); Lymphocytes Absolute Auto 0.33 K/mm3 (0.9-3.2); Lymphocytes Percent Auto 5.3 % (18.3-44.2); Mean Corpuscular HGB Conc 33.4 g/dl (32-36); Mean Corpuscular Hemoglobin 33.4 pg (26-34); Mean Platelet Volume 10.4 fl (7.4-10.4); Monocytes Absolute Auto 0.3 K/mm3 (0.1-0.6); Monocytes Percent Auto 5.5 % (2.6-8.5); Neutrophils Absolute Auto 5.5 K/mm3 (1.3-6.7); Neutrophils Percent Auto 88.2 % (45.5-73.1); Platelet Count Result 119 k/mm3 (150-375); Red Blood Count 3.56 M/mm3 (4.2-5.4); Red Cell Distribution Width 13.4 % (11.5-14.5); White Blood Count 6.2 K/mm3 (4.5-10.0)
[2024-06-28 19:36] LABS: Alanine Aminotransferase 24 U/L (6-35); Albumin Level 3.4 g/dL (3.5-5.1); Alkaline Phosphatase 195 U/L (38-126); Anion Gap 9 mmol/L (4-12); Aspartate Amino Transferase 48 U/L (14-36); Bilirubin,Total 1.3 mg/dL (0.2-1.3); Blood Urea Nitrogen 22 mg/dL (7-17); Calcium 9.2 mg/dL (8.4-10.2); Carbon Dioxide 26 mmol/L (22-30); Chloride 94 mmol/L (98-107); Estimated Glomerular Filt Rate > 60; Glucose 192 mg/dL (65-110); Lipase 18 U/L (23-300); Potassium 4.5 mmol/L (3.4-5.0); Sodium 129 mmol/L (137-145)
[2024-06-28] MEDS: ONDANSETRON INJ 4 MG/2 ML VIAL IV PUSH (19:40)
[2024-06-28] MEDS: MORPHINE SULFATE (*CRX) 4 MG/ML INJ IV PUSH (19:42)
[2024-06-28 20:17] LABS: Add Urine Microscopic? YES; Appearance Urine Cloudy (Clear); Bacteria Urine 4+ /hpf; Bilirubin Urine Negative (Negative); Blood Urine 3+ (Negative); Color Urine Yellow (Yellow); Glucose Urine UA 3+ mg/dL (Negative); Ketones Urine 1+ mg/dL (Negative); Leukocyte Esterase Ur Negative LEU/UL (Negative); Nitrate Urine Positive (Negative); Non Pathogenic Casts 0-2; Protein Urine 1+ mg/dL (Negative); RBC Urine >100 /hpf (0-2); Specific Grav Ur 1.038 (1.001-1.035); Squamous Epithelial Cell Urine None Seen /hpf (Few); WBC Urine 0-5 /hpf (0-3)
[2024-06-28] MEDS: cefTRIAXone 2 GM/NS 100 ML 2 GM/100 ML BAG IVPB (21:22)
--- NOTE | 2024-06-28 22:22 | ECG_ITS ---
Test Date: 2024-06-28 22:31:21 Measurements Intervals [place] Rate: 103 P: 0 VT: 0 QRS: 120 QRSD: 145 T: 86 QT: 384 QTc: 505 Interpretive Statements ATRIAL FIBRILLATION WITH RAPID VENTRICULAR RESPONSE WITH VENTRICULAR PREMATURE COMPLEXES RIGHT AXIS DEVIATION LEFT BUNDLE BRANCH BLOCK BASELINE ARTIFACT- I, II, III, AVR, AVL, AVF ABNORMAL ECG Compared to ECG 06/10/2024 13:57:19 ATRIAL FIBRILLATION NOW PRESENT Electronically Signed On 06-29-2024 06:32:53 CDT by Grabiel Caballero D.O.
[2024-06-28 22:26] LABS: Glucose Point of Care 157 mg/dl (65-105)
[2024-06-28] MEDS: dilTIAZem HCl INJ 25 MG/5 ML VIAL 10 MG IV PUSH (22:27)
[2024-06-28] MEDS: dilTIAZem 100 MG/100 ML 100 MG/100 ML BAG IV CONT (22:29)
[2024-06-28 22:59] LABS: Troponin I < 0.012 ng/mL (0.000-0.034)
[2024-06-28 23:13] LABS: Troponin I < 0.012 ng/mL (0.000-0.034)
[2024-06-29] VITALS (25 sets, daily range): BP systolic 98–138; BP diastolic 43–88; PULSE 79–113; RESP 16–25; TEMP 36.5–37.4; O2SAT 89–98; BMI 40.7
--- NOTE | 2024-06-29 | ECHOL_ITS ---
Patient Info Name: Loretta Penn Age: 63 years : 1960 Gender: Female Ht: 65 in Wt: 252 lbs BSA: 2.35 m2 HR: 88 bpm BP: 112 / 60 mmHg Heart Rhythm: Sinus Rhythm Technical Quality: Good Exam Date: 06/29/2024 2:36 PM Exam Location: Echo Lab Patient Status: Inpatient Admit Date: 06/29/2024 Staff Ordering Physician: Raymundo Hadley MD Adjunct Trainer: Jory Mojica RDCS Attending Provider: Ramon Calvert MD Exam Type: CA echo limited Study Info Indications - recent endocarditis Limited two-dimensional transthoracic echocardiogram is performed. Summary 1. Limited echocardiogram performed in follow-up of endocarditis, Doppler not requested. 2. Mild LV enlargement with mildly reduced systolic function. 3. Pacemaker lead noted in the right heart chambers. 4. No visible infectious vegetation although suboptimal visualization of the tricuspid and pulmonic valve. 5. No Doppler information requested and therefore no comment can be made regarding regurgitant lesions. 6. Details of endocarditis not available to me at the time of this report. Left Ventricle Left ventricular chamber dimension is mildly enlarged. Left ventricular systolic function is mildly reduced, estimated at 45-50%. Right Ventricle Right ventricular chamber dimension is normal. Linear artifact in right ventricle suggestive of catheter(s), pacemaker lead(s), or ICD lead(s). Left Atria Left atrial chamber dimension is moderately enlarged. Right Atria Right atrial chamber dimension is mildly enlarged. Linear artifact in the right atrium suggestive of catheter(s), pacemaker lead(s), or ICD lead(s). Aortic Valve The aortic valve is normal. Pulmonic Valve The pulmonic valve is not well visualized. Mitral Valve The mitral valve has normal leaflets. The mitral valve annulus is mildly calcified. Tricuspid Valve The tricuspid valve leaflets are not well visualized. Pericardium/Pleural The pericardium appears normal. Aorta The aortic root size at the sinus of Valsalva is normal. Left Ventricular Outflow Tract Name Value Normal LVOT 2D LVOT Diameter 1.9 cm Aortic Valve Name Value Normal AV Regurgitation 2D LVOT Area 2.9 cm2 Ventricles Name Value Normal LV Dimensions 2D/MM IVS Diastolic Thickness (2D) 0.8 cm 0.6-1.0 LVID Diastole (2D) 5.8 cm 3.8-5.2 LVIW Diastolic Thickness (2D) 0.8 cm 0.6-0.9 LVID Systole (2D) 4.0 cm 2.2-3.5 LVOT Diameter 1.9 cm LV Mass (2D Cubed) 171.65 g 67.00-162.00 LV Mass Index (2D Cubed) 73 g/m2 43-95 Relative Wall Thickness (2D) 0.27 LV Fractional Shortening/Ejection Fraction 2D/MM LV Fractional Shortening (2D) 32 % 27-45 LV EF (2D Teicholz) 60 % 54-74 LV Diastolic Volume (4C MOD) 109 ml LV EF (4C MOD) 49 % LV Diastolic Length (4C) 7.9 cm LV Systolic Length (4C) 7.0 cm LV Stroke Volume (4C MOD) 53 ml Atria Name Value Normal LA Dimensions LA Volume (4C A-L) 76 ml RA Dimensions RA Area (4C) 16.7 cm2 <=18.0 Report Signatures
[2024-06-29] MEDS: ONDANSETRON INJ 4 MG/2 ML VIAL IV PUSH (00:44)
[2024-06-29] MEDS: HYDROmorphone HCL INJ (*CRX) 1 MG/ML SYR IV PUSH (00:45)
--- NOTE | 2024-06-29 01:22 | ECG_ITS ---
Test Date: 2024-06-29 01:29:13 Measurements Intervals [place] Rate: 108 P: 0 OK: 0 QRS: 98 QRSD: 154 T: 87 QT: 394 QTc: 530 Interpretive Statements ATRIAL FIBRILLATION WITH RAPID VENTRICULAR RESPONSE RIGHT AXIS DEVIATION LEFT BUNDLE BRANCH BLOCK BASELINE WANDER- V5-V6 ABNORMAL ECG Compared to ECG 06/28/2024 22:31:21 NO SIGNIFICANT CHANGE Electronically Signed On 06-29-2024 06:33:45 CDT by Grabiel Caballero D.O.
--- NOTE | 2024-06-29 03:07 | ADMGEN ---
0250: This patient, Loretta Penn, was admitted to IMU Room 201-01. Patient/family oriented to hospital policies and general routines including ID bracelet, bed and alarms, visiting hours, pain management, procedures, bathroom and other care routines, personal items, smoking policy, room service/diet, and visiting hours. Information on how to activate the Rapid Response Team has been discussed. Patient/Family are encouraged to report perceived risks to care and to ask questions if they do not understand what they are told or what they should do.
[2024-06-29] MEDS: dilTIAZem 100 MG/100 ML 100 MG/100 ML BAG 15 MG IV CONT (05:43)
--- NOTE | 2024-06-29 08:30 | PM.IMHP ---
H&P: HPI History of Present Illness Date/Time: 06/29/24 08:30 Chief Complaint: flank pain Narrative: 63-year-old female presenting with right flank pain. States that it started earlier today. Associated with foul-smelling urine. States that sometimes it feels like the pain goes down her right leg. No numbness or weakness. No further complaints. on ED evaluation vitals were within normal limit. She was diffusely tender in her abdomen with right CVA tenderness. WBC 6.2 hemoglobin 11.9 platelet 119 sodium was mildly low at 129 creatinine 0.7 blood sugars 192. Lipase normal at 18 troponin was negative less than 0.012 mildly elevated LFTs. Urinalysis with more than 100 RBC WBC 0-[address] abdomen pelvis showed no acute abdominal process no kidney stones sliding hiatal hernia. CT lumbar spine with disc bulge at level of L3-L4 with left posterolateral disc protrusion with narrowing with root compression. Multilevel facet joint disease. Bilateral sacroiliitis. While in the ER her heart rate jumped up and noted to be in AFib with RVR. She does have history of atrial fibrillation and is chronically anticoagulated she was started on diltiazem drip. IV Rocephin was also given for Possible UTI. She is admitted in this setting for further treatment. 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 She has already completed her IV antibiotic course on 06/21/2024 She was recently admitted and discharged on 06/21/2024 after a fall and finding of unsustained ventricular tachycardia chief had a syncopal episode fell forward and hit her head. She has a laceration which has been sutured since then. Her AICD was interrogated and had 5 discharges noted. She was treated with Ancef for her endocarditis. She also had a clot in her left atrial appendage is and cardioversion for atrial fibrillation was canceled. She has been on Xarelto since then. She had been to ER again on 06/26/2024 with abdominal pain vomiting and diarrhea for 3 days and weakness no fever family reports some chills. Laboratory evaluation showed mild WBC 11.5 rest of the labs were unremarkable. CT abdomen and pelvis was done which showed no acute intra-abdominal abnormality. Urinalysis at that time also showed 11-20 RBC 0-5 WBC Review of Systems Review of Systems: - CONSTITUTIONAL: Denies weight loss, fever and reports chills. - HEENT: Denies changes in vision and hearing - RESPIRATORY: Denies SOB and cough. - CV: Denies palpitations and CP. - GI: Reports abdominal pain, nausea, vomiting and denies diarrhea. - : Denies dysuria and urinary frequency. - MSK: Denies myalgia and joint pain. - SKIN: Denies rash and pruritus. - NEUROLOGICAL: Denies headache and syncope. - PSYCHIATRIC: Denies recent changes in mood. Denies anxiety and depression. [facility] Past Medical History Medical History Atrial fibrillation Bacteremia Diabetes GERD (gastroesophageal reflux disease) HTN (hypertension) Hypothyroidism Overactive bladder Pacemaker Thrombocytopenia Surgical History Surgical History AICD (automatic cardioverter/defibrillator) present Family History Family History Other Unknown family medical history Social History Social History Smoking status: Former smoker Alcohol intake: never Substance use: current Substance use type: marijuana Do You Feel Safe in your Home?: Yes Lack of Transportation: No Lack of Food: Never True Current Housing: I Have Housing Concerned About Future Housing: No Difficulty Paying Gas/Electric Bills: No Difficulty Paying for Meds: No Currently Unemployed: No Education: Grade School Difficulty w/ Childcare or Family Care: No Gender identity (if verbalized by the patient): Female Spiritual care concerns: No Meds Home Medications and Allergies Home Medications Medication Instructions Recorded Confirmed Type escitalopram oxalate 10 mg tablet 10 mg PO DAILY 06/27/20 06/29/24 History nortriptyline 10 mg capsule 10 mg PO HS 06/27/20 06/29/24 History omeprazole 20 mg capsule,delayed 20 mg PO DAILY 06/27/20 06/29/24 History release potassium chloride 20 mEq 20 meq PO DAILY 06/27/20 06/29/24 History tablet,extended release(part/cryst) rivaroxaban 20 mg tablet (Xarelto) 20 mg PO DAILY 06/27/20 06/29/24 History docusate sodium 100 mg capsule 100 mg PO BID 05/21/24 06/29/24 History insulin aspart U-100 100 unit/mL 10 unit subcut TIDWMEAL 05/21/24 06/29/24 History (3 mL) subcutaneous pen (Novolog FlexPen U-100 Insulin aspart) insulin glargine 100 unit/mL (3 18 unit subcut DAILY 05/21/24 06/29/24 History mL) subcutaneous pen (Basaglar KwikPen U-100 Insulin) levothyroxine 75 mcg tablet 75 mcg PO DAILY 05/21/24 06/29/24 History sacubitril 24 mg-valsartan 26 mg 1 tablet PO BID 05/21/24 06/29/24 History tablet (Entresto) vibegron 75 mg tablet (Gemtesa) 75 mg PO DAILY 05/21/24 06/29/24 History insulin aspart U-100 100 unit/mL See Rx Instructions .Route .COMPLEX 06/29/24 06/29/24 History (3 mL) subcutaneous pen (Novolog FlexPen U-100 Insulin aspart) magnesium oxide 400 mg (241.3 mg 400 mg PO DAILY 06/29/24 06/29/24 History magnesium) tablet metoprolol succinate 50 mg 50 mg PO DAILY 06/29/24 06/29/24 History tablet,extended release 24 hr midodrine 5 mg tablet 2.5 mg PO Q12H PRN Hypotension 06/29/24 06/29/24 History Allergies Allergy/AdvReac Type Severity Reaction Status Date / Time Sulfa (Sulfonamide Allergy Mild RASH Verified 06/28/24 15:44 Antibiotics) Vital Signs Vital Signs - 24 hr 06/28/24 15:50 06/28/24 18:23 06/28/24 18:31 Temperature 98.1 F Pulse Rate 98 105 H 102 H Respiratory Rate 20 22 H 27 H Blood Pressure 119/69 103/59 L 134/84 Pulse Oximetry 96 94 89 L Oxygen Delivery Room Air Oxygen Flow Rate 06/28/24 18:46 06/28/24 20:13 06/28/24 20:13 Temperature 98 F Pulse Rate 109 H 110 H Respiratory Rate 19 29 H Blood Pressure 116/58 L 95/39 L Pulse Oximetry 98 100 100 Oxygen Delivery Nasal Cannula Oxygen Flow Rate 4 06/28/24 22:06 06/28/24 22:29 06/28/24 22:58 Temperature 97.8 F Pulse Rate 103 H 102 H Respiratory Rate 29 H Blood Pressure 155/91 H 142/78 H Pulse Oximetry 99 95 Oxygen Delivery Nasal Cannula Oxygen Flow Rate 3 06/28/24 23:00 06/28/24 23:46 06/29/24 00:16 Temperature 97.9 F Pulse Rate 103 H 103 H 105 H Respiratory Rate 25 H Blood Pressure 137/95 H 146/60 H 138/79 Pulse Oximetry 96 Oxygen Delivery Oxygen Flow Rate 06/29/24 02:21 06/29/24 03:08 06/29/24 03:50 Temperature 98 F 98.5 F Pulse Rate 113 H 108 H Respiratory Rate 20 18 Blood Pressure 125/67 103/57 L Pulse Oximetry 95 93 93 Oxygen Delivery Nasal Cannula Oxygen Flow Rate 3 06/29/24 04:30 06/29/24 04:30 06/29/24 04:00 Temperature Pulse Rate 89 103 H Respiratory Rate 22 H Blood Pressure Pulse Oximetry 93 93 Oxygen Delivery Autopap Nasal Cannula Oxygen Flow Rate 3 06/29/24 03:00 06/29/24 05:00 06/29/24 05:42 Temperature Pulse Rate 100 88 83 Respiratory Rate Blood Pressure 103/57 L 115/66 111/56 L Pulse Oximetry Oxygen Delivery Oxygen Flow Rate 06/29/24 05:43 06/29/24 06:00 06/29/24 06:00 Temperature Pulse Rate 84 79 83 Respiratory Rate Blood Pressure 111/56 L 112/60 Pulse Oximetry Oxygen Delivery Oxygen Flow Rate Exam Narrative: GENERAL: Chronically ill-appearing, not in acute distress HEAD: Normocephalic, atraumatic. EYES: PERRLA and EOMI. NECK: Supple. CHEST: Clear to auscultation. No respiratory distress. HEART: Regular rate and rhythm ABDOMEN: Soft, nontender; no organomegaly EXTREMITIES: No edema cyanosis or clubbing SKIN: Warm, dry, no rash. NEURO: Alert and oriented x3. PSYCH: Mildly anxious H&P: Results Labs Labs: Short CBC 06/28/24 Range/Units 19:19 WBC 6.2 (4.5-10.0) K/mm3 Hgb 11.9 L (12.0-15.0) g/dL Hct 35.6 L (37.0-47.0) % Plt Count 119 L D (150-375) k/mm3 BMP 06/28/24 19:19 Sodium 129 L Potassium 4.5 Chloride 94 L Carbon Dioxide 26 BUN 22 H Creatinine 0.70 Glucose 192 H Calcium 9.2 Cardiac Enzymes 06/28/24 06/28/24 Range/Units 19:19 22:38 Troponin I < 0.012 < 0.012 (0.000-0.034) ng/mL Liver Function 06/28/24 Range/Units 19:19 Total Bilirubin 1.3 (0.2-1.3) mg/dL AST 48 H (14-36) U/L ALT 24 (6-35) U/L Alkaline Phosphatase 195 H (38-126) U/L Albumin 3.4 L (3.5-5.1) g/dL Urine 06/28/24 Range/Units 19:57 Urine Color Yellow (Yellow) Urine Appearance Cloudy H (Clear) Urine pH 5.0 (5.0-9.0) Ur Specific [place] 1.038 H (1.001-1.035) Urine Protein 1+ H (Negative) mg/dL Urine Glucose (UA) 3+ H (Negative) mg/dL Assessment and Plan Assessment and plan (1) Atrial fibrillation with rapid ventricular response: Code(s): I48.91 - Unspecified atrial fibrillation Status: Acute (2) UTI (urinary tract infection): Code(s): N39.0 - Urinary tract infection, site not specified Status: Acute (3) Generalized pain: Code(s): R52 - Pain, unspecified Status: Acute (4) Thrombocytopenia: Code(s): D69.6 - Thrombocytopenia, unspecified Status: Acute (5) Hypothyroidism: Code(s): E03.9 - Hypothyroidism, unspecified Status: Chronic (6) HTN (hypertension): Code(s): I10 - Essential (primary) hypertension Status: Chronic (7) Diabetes: Code(s): E11.9 - Type 2 diabetes mellitus without complications Status: Acute (8) Heart failure: Code(s): I50.9 - Heart failure, unspecified Status: Acute (9) AICD (automatic cardioverter/defibrillator) present: Code(s): Z95.810 - Presence of automatic (implantable) cardiac defibrillator Status: Acute (10) Pacemaker: Code(s): Z95.0 - Presence of cardiac pacemaker Status: Acute (11) Atrial fibrillation: Code(s): I48.91 - Unspecified atrial fibrillation Status: Chronic (12) GERD (gastroesophageal reflux disease): Code(s): K21.9 - Gastro-esophageal reflux disease without esophagitis Status: Chronic Plan 63-year-old female presenting with right flank pain. States that it started earlier today. Associated with foul-smelling urine. States that sometimes it feels like the pain goes down her right leg. No numbness or weakness. No further complaints. on ED evaluation vitals were within normal limit. She was diffusely tender in her abdomen with right CVA tenderness. WBC 6.2 hemoglobin 11.9 platelet 119 sodium was mildly low at 129 creatinine 0.7 blood sugars 192. Lipase normal at 18 troponin was negative less than 0.012 mildly elevated LFTs. Urinalysis with more than 100 RBC WBC 0-[address] abdomen pelvis showed no acute abdominal process no kidney stones sliding hiatal hernia. CT lumbar spine with disc bulge at level of L3-L4 with left posterolateral disc protrusion with narrowing with root compression. Multilevel facet joint disease. Bilateral sacroiliitis. While in the ER her heart rate jumped up and noted to be in AFib with RVR. She does have history of atrial fibrillation and is chronically anticoagulated she was started on diltiazem drip. IV Rocephin was also given for Possible UTI. She is admitted in this setting for further treatment. 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 She has already completed her IV antibiotic course on 06/21/2024 She was recently admitted and discharged on 06/21/2024 after a fall and finding of unsustained ventricular tachycardia chief had a syncopal episode fell forward and hit her head. She has a laceration which has been sutured since then. Her AICD was interrogated and had 5 discharges noted. She was treated with Ancef for her endocarditis. She also had a clot in her left atrial appendage is and cardioversion for atrial fibrillation was canceled. She has been on Xarelto since then. She had been to ER again on 06/26/2024 with abdominal pain vomiting and diarrhea for 3 days and weakness no fever family reports some chills. Laboratory evaluation showed mild WBC 11.5 rest of the labs were unremarkable. CT abdomen and pelvis was done which showed no acute intra-abdominal abnormality. Urinalysis at that time also showed 11-20 RBC 0-5 WBC Will taper off diltiazem drip and restart her metoprolol. Monitor on telemetry. Continue Xarelto Ventricular tachycardia Chronic diastolic congestive heart failure Status post AICD placement Recent endocarditis Proximal atrial fibrillation GERD Hypothyroidism Type 2 diabetes Diffuse disc bulge L3-L4 with left posterolateral disc protrusion with narrowing with root compression/bilateral sacroiliitis, lumbar degenerative disc disease Hiatal hernia sliding DVT prophylaxis on Xarelto Code status full code
[2024-06-29] MEDS: dilTIAZem 100 MG/100 ML 100 MG/100 ML BAG 10 MG IV CONT ×2 (09:10→19:17)
[2024-06-29] MEDS: ESCITALOPRAM OXALATE 10 MG TABLET PO (11:47)
[2024-06-29] MEDS: DOCUSATE SODIUM 100 MG CAPSULE PO ×2 (11:47→18:30)
[2024-06-29] MEDS: METOPROLOL SUCCINATE EXT REL 50 MG TABCR PO (11:48)
[2024-06-29] MEDS: MAGNESIUM OXIDE 400 MG TABLET PO (11:48)
[2024-06-29] MEDS: FUROSEMIDE 40 MG TABLET PO (11:48)
[2024-06-29] MEDS: SACUBITRIL/VALSARTAN 24-26 MG TABLET 1 TAB PO ×2 (11:49→18:30)
[2024-06-29] MEDS: LEVOTHYROXINE SODIUM 75 MCG TABLET PO (11:49)
[2024-06-29] MEDS: RIVAROXABAN 20 MG TABLET PO (11:49)
[2024-06-29 12:29] LABS: Glucose Point of Care 186 mg/dl (65-105)
[2024-06-29] MEDS: MORPHINE SULFATE (*CRX) 2 MG/ML INJ IV PUSH ×2 (18:30→23:25)
[2024-06-29] MEDS: NORTRIPTYLINE HCL 10 MG CAPSULE PO (20:02)
[2024-06-29 20:08] LABS: Glucose Point of Care 291 mg/dl (65-105)
[2024-06-30] VITALS (18 sets, daily range): BP systolic 96–128; BP diastolic 55–76; PULSE 91–103; RESP 18–20; TEMP 36.3–37.8; O2SAT 95–98
[2024-06-30] MEDS: ACETAMINOPHEN 500 MG TABLET 1000 MG PO ×2 (04:23→22:40)
[2024-06-30 04:33] LABS: Basophils Percent Auto 0.4 % (0.2-1.2); Eosinophils Absolute Auto 0.1 K/mm3 (0-0.3); Eosinophils Percent Auto 1.6 % (0-4.4); Hematocrit 33.3 % (37.0-47.0); Immature Granulocyte Absolute 0.05 K/mm3 (0.00-0.031); Immature Granulocyte Percent A 0.7 % (0-0.5); Immature Platelet Fraction Pct 4.2 % (0.9-11.2); Lymphocytes Absolute Auto 0.65 K/mm3 (0.9-3.2); Lymphocytes Percent Auto 8.7 % (18.3-44.2); Mean Corpuscular Hemoglobin 32.9 pg (26-34); Mean Corpuscular Volume 99.7 fl (80-100); Mean Platelet Volume 10.1 fl (7.4-10.4); Monocytes Absolute Auto 0.9 K/mm3 (0.1-0.6); Monocytes Percent Auto 12.4 % (2.6-8.5); Neutrophils Absolute Auto 5.7 K/mm3 (1.3-6.7); Neutrophils Percent Auto 76.2 % (45.5-73.1); Platelet Count Result 123 k/mm3 (150-375); Red Blood Count 3.34 M/mm3 (4.2-5.4); White Blood Count 7.5 K/mm3 (4.5-10.0)
[2024-06-30 04:57] LABS: Alanine Aminotransferase 18 U/L (6-35); Alkaline Phosphatase 194 U/L (38-126); Anion Gap 8 mmol/L (4-12); Aspartate Amino Transferase 24 U/L (14-36); Bilirubin,Total 1.1 mg/dL (0.2-1.3); Blood Urea Nitrogen 18 mg/dL (7-17); Calcium 8.3 mg/dL (8.4-10.2); Carbon Dioxide 27 mmol/L (22-30); Chloride 88 mmol/L (98-107); Estimated CRCL calculation 92 ml/min; Estimated Glomerular Filt Rate > 60; Glucose 205 mg/dL (65-110); Magnesium 2.2 mg/dL (1.6-2.3); Potassium 4.2 mmol/L (3.4-5.0); Sodium 123 mmol/L (137-145)
[2024-06-30 05:02] LABS: Troponin I < 0.012 ng/mL (0.000-0.034)
[2024-06-30] MEDS: LEVOTHYROXINE SODIUM 75 MCG TABLET PO (06:39)
[2024-06-30 08:03] LABS: Glucose Point of Care 190 mg/dl (65-105)
[2024-06-30] MEDS: RIVAROXABAN 20 MG TABLET PO (08:31)
[2024-06-30] MEDS: ESCITALOPRAM OXALATE 10 MG TABLET PO (08:31)
[2024-06-30] MEDS: DOCUSATE SODIUM 100 MG CAPSULE PO ×2 (08:31→17:19)
[2024-06-30] MEDS: FUROSEMIDE 40 MG TABLET PO (08:32)
[2024-06-30] MEDS: SACUBITRIL/VALSARTAN 24-26 MG TABLET 1 TAB PO ×2 (08:32→17:19)
[2024-06-30] MEDS: MAGNESIUM OXIDE 400 MG TABLET PO (08:32)
[2024-06-30] MEDS: PANTOPRAZOLE 40 MG TABLET PO (08:32)
[2024-06-30] MEDS: METOPROLOL SUCCINATE EXT REL 50 MG TABCR PO (08:32)
[2024-06-30] MEDS: POTASSIUM CHLORIDE 20 MEQ ER TABLET PO (08:32)
--- NOTE | 2024-06-30 08:53 | P.PNIM_ITS ---
Progress Note: A&P Assessment and Plan (1) Atrial fibrillation with rapid ventricular response: Code(s): I48.91 - Unspecified atrial fibrillation Status: Acute (2) UTI (urinary tract infection): Code(s): N39.0 - Urinary tract infection, site not specified Status: Acute (3) Generalized pain: Code(s): R52 - Pain, unspecified Status: Acute (4) Thrombocytopenia: Code(s): D69.6 - Thrombocytopenia, unspecified Status: Acute (5) Hypothyroidism: Code(s): E03.9 - Hypothyroidism, unspecified Status: Chronic (6) HTN (hypertension): Code(s): I10 - Essential (primary) hypertension Status: Chronic (7) Diabetes: Code(s): E11.9 - Type 2 diabetes mellitus without complications Status: Acute (8) Heart failure: Code(s): I50.9 - Heart failure, unspecified Status: Acute (9) AICD (automatic cardioverter/defibrillator) present: Code(s): Z95.810 - Presence of automatic (implantable) cardiac defibrillator Status: Acute (10) Pacemaker: Code(s): Z95.0 - Presence of cardiac pacemaker Status: Acute (11) Atrial fibrillation: Code(s): I48.91 - Unspecified atrial fibrillation Status: Chronic (12) GERD (gastroesophageal reflux disease): Code(s): K21.9 - Gastro-esophageal reflux disease without esophagitis Status: Chronic Plan 63-year-old female presenting with right flank pain. States that it started ea rlier today. Associated with foul-smelling urine. States that sometimes it feels like the pain goes down her right leg. No numbness or weakness. No further complaints. on ED evaluation vitals were within normal limit. She was diffusely tender in her abdomen with right CVA tenderness. WBC 6.2 hemoglobin 11.9 platelet 119 sodium was mildly low at 129 creatinine 0.7 blood sugars 192. Lipase normal at 18 troponin was negative less than 0.012 mildly elevated LFTs. Urinalysis with more than 100 RBC WBC 0-[address] abdomen pelvis showed no acute abdominal process no kidney stones sliding hiatal hernia. CT lumbar spine with disc bulge at level of L3-L4 with left posterolateral disc protrusion with narrowing with root compression. Multilevel facet joint disease. Bilateral sacroiliitis. While in the ER her heart rate jumped up and noted to be in AFib with RVR. She does have history of atrial fibrillation and is chronically anticoagulated she was started on diltiazem drip. IV Rocephin was also given for Possible UTI. She is admitted in this setting for further treatment. 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 She has already completed her IV antibiotic course on 06/21/2024 She was recently admitted and discharged on 06/21/2024 after a fall and finding of unsustained ventricular tachycardia chief had a syncopal episode fell forward and hit her head. She has a laceration which has been sutured since then. Her AICD was interrogated and had 5 discharges noted. She was treated with Ancef for her endocarditis. She also had a clot in her left atrial appendage is and cardioversion for atrial fibrillation was canceled. She has been on Xarelto sin ce then. She had been to ER again on 06/26/2024 with abdominal pain vomiting and diarrhea for 3 days and weakness no fever family reports some chills. Laboratory evaluation showed mild WBC 11.5 rest of the labs were unremarkable. CT abdomen and pelvis was done which showed no acute intra-abdominal abnormality. Urinalysis at that time also showed 11-20 RBC 0-5 WBC diltiazem drip tapered off and restarted her metoprolol. Monitor on telemetry. UTI: urine culture positive for e coli. on ceftriaxone. will continue same. Hypoxia: mild. has underlying sleep apnea. but not tolerating CPAP at home. cxr with congestive changes. will give a dose of lasix today. Continue Xarelto hyponatremia worsened down to 123. Check TSH urine lytes cortisol. Add salt tablets. Ventricular tachycardia Chronic diastolic congestive heart failure Status post AICD placement Recent endocarditis Paroxysmal atrial fibrillation GERD Hypothyroidism check TSH Type 2 diabetes Diffuse disc bulge L3-L4 with left posterolateral disc protrusion with narrowing with root compression/bilateral sacroiliitis, lumbar degenerative disc disease Hiatal hernia sliding DVT prophylaxis on Xarelto Code status full code Subjective Date/time seen: 06/30/24 08:53 Interval history: no new complaints. family reports hurting on right side. she has been placed on oxygen. no nausea, vomiting. Review of Systems Review of Systems: All systems reviewed & are unremarkable except as noted in HPI and below Exam Narrative: GENERAL: Chronically ill-appearing, not in acute distress HEAD: Normocephalic, atraumatic. EYES: PERRLA and EOMI. NECK: Supple. CHEST: Clear to auscultation. No respiratory distress. HEART: Regular rate and rhythm ABDOMEN: Soft, nontender; no organomegaly EXTREMITIES: No edema cyanosis or clubbing SKIN: Warm, dry, no rash. NEURO: Alert and conversant, somewhat confused PSYCH: Mildly anxious Objective Data Vital Signs Vital Signs: Vital Signs - 24 hr 06/29/24 09:10 06/29/24 09:10 06/29/24 12:00 Temperature 98 F Pulse Rate 88 88 100 Respiratory Rate 20 Blood Pressure 112/60 112/60 98/58 L Pulse Oximetry 89 L Oxygen Delivery Oxygen Flow Rate 06/29/24 13:29 06/29/24 10:00 06/29/24 12:00 Temperature Pulse Rate 98 100 Respiratory Rate Blood Pressure Pulse Oximetry 95 Oxygen Delivery Room Air Oxygen Flow Rate 06/29/24 12:00 06/29/24 16:00 06/29/24 16:00 Temperature 98.1 F Pulse Rate 107 H 102 H Respiratory Rate 16 Blood Pressure 109/88 Pulse Oximetry 95 Oxygen Delivery Room Air Oxygen Flow Rate 06/29/24 16:00 06/29/24 18:00 06/29/24 19:10 Temperature Pulse Rate 102 H 102 H Respiratory Rate Blood Pressure Pulse Oximetry Oxygen Delivery Room Air Oxygen Flow Rate 06/29/24 19:17 06/29/24 20:00 06/29/24 20:00 Temperature 99.3 F Pulse Rate 102 H 99 99 Respiratory Rate 20 Blood Pressure 135/48 L Pulse Oximetry 98 Oxygen Delivery Oxygen Flow Rate 06/29/24 20:00 06/29/24 22:00 06/29/24 21:39 Temperature Pulse Rate 101 H Respiratory Rate Blood Pressure Pulse Oximetry 94 94 Oxygen Delivery Nasal Cannula Nasal Cannula Oxygen Flow Rate 3 3 06/29/24 23:47 06/29/24 23:58 06/30/24 00:00 Temperature 99.0 F Pulse Rate 92 95 Respiratory Rate 24 H Blood Pressure 102/43 L Pulse Oximetry 95 95 Oxygen Delivery Nasal Cannula Oxygen Flow Rate 3 06/30/24 02:00 06/30/24 04:00 06/30/24 04:00 Temperature Pulse Rate 92 97 Respiratory Rate Blood Pressure Pulse Oximetry 95 Oxygen Delivery Nasal Cannula Oxygen Flow Rate 3 06/30/24 04:23 06/30/24 04:00 06/30/24 06:00 Temperature 100.1 F H 100.1 F H Pulse Rate 93 91 Respiratory Rate 20 Blood Pressure 111/76 Pulse Oximetry 96 Oxygen Delivery Oxygen Flow Rate 06/30/24 07:41 06/30/24 08:32 Temperature 97.5 F L Pulse Rate 92 103 H Respiratory Rate 20 Blood Pressure 111/55 L Pulse Oximetry 98 Oxygen Delivery Oxygen Flow Rate Intake/Output Intake/Output: Intake & Output 06/27/24 06/28/24 06/29/24 06/30/24 23:59 23:59 23:59 23:59 Intake Total 1110.3 1200.7 730 Output Total 50 Balance 1060.3 1200.7 730 Meds/Results Medications: Active Medications Generic Name Dose Route Start Last Admin Trade Name Freq PRN Reason Stop Dose Admin Acetaminophen 1,000 mg 06/30/24 04:04 06/30/24 04:23 Acetaminophen 500 Mg Tablet PO 1,000 mg Q6H PRN Administration Mild Pain (1-3) or Fever Dextrose 12.5 gm 06/29/24 08:56 Dextrose 50% 25 Gm/50 Ml Syringe IV PUSH PRN PRN Hypoglycemia Protocol Docusate Sodium 100 mg 06/29/24 09:00 06/30/24 08:31 Docusate Sodium 100 Mg Capsule PO 100 mg BID GALINA Administration Escitalopram Oxalate 10 mg 06/29/24 09:00 06/30/24 08:31 Escitalopram Oxalate 10 Mg Tablet PO 10 mg DAILY GALINA Administration Furosemide 40 mg 06/29/24 09:00 06/30/24 08:32 Furosemide 40 Mg Tablet PO 40 mg DAILY GALINA Administration Glucagon 1 mg 06/29/24 08:56 Glucagon For Inj 1 Mg Vial IM PRN PRN Hypoglycemia Protocol Glucose 15 gm 06/29/24 08:56 Glucose Oral Gel 15 Gm Of Glucse In 37.5 Gm Tube PO PRN PRN Hypoglycemia Protocol Hydromorphone HCl 1 mg 06/29/24 20:05 Hydromorphone Hcl Inj (*Crx) 1 Mg/Ml Syr IV PUSH Q3H PRN Pain Rated 7-10 Dextrose 1,000 mls @ 100 mls/hr 06/29/24 08:56 Dextrose 5% 1,000 Ml IVPB PRN PRN Hypoglycemia Protocol Ceftriaxone Sodium 1 gm in 50 mls @ 100 mls/hr 06/29/24 17:00 06/29/24 18:30 Rocephin 1 Gm/Ns 50 Ml IVPB 100 mls/hr Q24H GALINA Administration Insulin Aspart 2 - 5 units 06/29/24 12:00 06/30/24 08:44 Insulin Aspart (*Bkc) 100 Units/Ml SUB-Q Not Given TIDWM GALINA Protocol Insulin Glargine 15 units 06/29/24 09:00 06/29/24 19:15 Insulin Glargine (*Bkc) 100 Units/Ml SUB-Q Not Given DAILY [facility] Levothyroxine Sodium 75 mcg 06/29/24 11:00 06/30/24 06:39 Levothyroxine Sodium 75 Mcg Tablet PO 75 mcg DAILY@0630 GALINA Administration Magnesium Oxide 400 mg 06/29/24 09:00 06/30/24 08:32 Magnesium Oxide 400 Mg Tablet PO 400 mg DAILY GALINA Administration Metoprolol Succinate 50 mg 06/29/24 09:00 06/30/24 08:32 Metoprolol Succinate Ext Rel 50 Mg Tabcr PO 50 mg DAILY GALINA Administration Midodrine 2.5 mg 06/29/24 08:49 Midodrine Hcl 2.5 Mg Tablet PO Q12H PRN Hypotension Miscellaneous Information 1 each 06/29/24 00:01 Please Clarify Home Insulin Aspart Dosing. Order Is Entered As 6 Units Tidwm, Home Says 10 XX 07/29/24 00:00 [facility] Miscellaneous Information 1 each 06/29/24 00:01 Vibegron Nonformulary. Can Patient Use From Home Or Hold Till Discharge? XX 07/29/24 00:00 [facility] Morphine Sulfate 2 mg 06/29/24 10:40 06/29/24 23:25 Morphine Sulfate (*Crx) 2 Mg/Ml Inj IV PUSH 2 mg Q4H PRN Administration Pain Non-Formulary Medication 75 mg 06/29/24 09:00 Vibegron [Gemtesa] PO 07/29/24 08:59 DAILY GALINA Non-Formulary Medication 6 unit 06/29/24 09:00 Insulin Aspart U-100 [Novolog Flexpen U-100 Insulin] SUB-Q 07/29/24 08:59 TIDWMEAL GALINA Nortriptyline HCl 10 mg 06/29/24 21:00 06/29/24 20:02 Nortriptyline Hcl 10 Mg Capsule PO 10 mg HS GALINA Administration Pantoprazole Sodium 40 mg 06/30/24 09:00 06/30/24 08:32 Pantoprazole 40 Mg Tablet PO 40 mg QAM GALINA Administration Perflutren Lipid Microsphere 0 ml 06/29/24 10:55 Perflutren Lipid Microspheres 1.5 Ml Vial Diluted To 10 Ml Total Volume IV PUSH 07/02/24 10:55 ONCE PRN adequate visualization Protocol Potassium Chloride 20 meq 06/30/24 09:00 06/30/24 08:32 Potassium Chloride 20 Meq Er Tablet PO 20 meq DAILY GALINA Administration Rivaroxaban 20 mg 06/29/24 09:00 06/30/24 08:31 Rivaroxaban 20 Mg Tablet PO 20 mg DAILY GALINA Administration Sacubitril/Valsartan 1 tab 06/29/24 09:00 06/30/24 08:32 Sacubitril/Valsartan 24-26 Mg Tablet PO 1 tab BID GALINA Administration Radiology Results: ITS Impressions Miscellaneous CT Procedure 06/28/24 21:54 IMPRESSION: 1. No acute abdominal process with no evidence of appendicitis, diverticulitis or intestinal obstruction. No kidney stones seen. 2. Sliding hiatus hernia. CT abd pelvis lumbar wo con Ordering provider: Mia Rios MD History: 63 years Female with . R flank pain . Comparison: None. Technique: CT lumbar spine without contrast. Automated exposure control and iterative reconstruction technique were employed. The dose-length product was 1618.46 mGy-cm. FINDINGS: [place]RA[place]: Normal height and alignment. No subluxation or visible acute fracture. Degenerative changes. DISC SPACES: Well maintained. Multilevel facet joint disease. Diffuse disc bulge at the level of L3-4 with left posterolateral disc protrusion with narrowing with root compression. PARASPINOUS SOFT TISSUES: Normal. Bilateral sacroiliitis. IMPRESSION: No acute osseous abnormality seen. Labs Labs: Laboratory Results - last 24 hr 06/29/24 06/29/24 06/30/24 12:22 19:51 04:06 WBC 7.5 RBC 3.34 L Hgb 11.0 L Hct 33.3 L MCV 99.7 MCH 32.9 MCHC 33.0 RDW 14.0 Plt Count 123 L MPV 10.1 Immature Gran % (Auto) 0.7 H Neut % (Auto) 76.2 H Lymph % (Auto) 8.7 L [place] % (Auto) 12.4 H Eos % (Auto) 1.6 Baso % (Auto) 0.4 Lymph # (Auto) 0.65 L [place] # (Auto) 0.9 H Eos # (Auto) 0.1 Baso # (Auto) 0.0 Abs Immat Gran (auto) 0.05 H Absolute Neuts (auto) 5.7 Absolute Nucleated RBC 0.000 Nucleated RBC % 0.0 % Immature Plt Fraction 4.2 Sodium 123 L Potassium 4.2 Chloride 88 L Carbon Dioxide 27 Anion Gap 8 BUN 18 H Creatinine 0.70 Estim Creat Clear Calc 92 Estimated GFR > 60 Glucose 205 H POC Capillary Glucose 186 H 291 H Calcium 8.3 L Magnesium 2.2 Total Bilirubin 1.1 AST 24 ALT 18 Alkaline Phosphatase 194 H Troponin I < 0.012 Total Protein 7.0 Albumin 3.0 L 06/30/24 07:46 WBC RBC Hgb Hct MCV MCH MCHC RDW Plt Count MPV Immature Gran % (Auto) Neut % (Auto) Lymph % (Auto) [place] % (Auto) Eos % (Auto) Baso % (Auto) Lymph # (Auto) [place] # (Auto) Eos # (Auto) Baso # (Auto) Abs Immat Gran (auto) Absolute Neuts (auto) Absolute Nucleated RBC Nucleated RBC % % Immature Plt Fraction Sodium Potassium Chloride Carbon Dioxide Anion Gap BUN Creatinine Estim Creat Clear Calc Estimated GFR Glucose POC Capillary Glucose 190 H Calcium Magnesium Total Bilirubin AST ALT Alkaline Phosphatase Troponin I Total Protein Albumin
[2024-06-30] MEDS: INSULIN GLARGINE (*BKC) 100 UNITS/ML 15 UNITS SUB-Q (08:56)
[2024-06-30] MEDS: HYDROmorphone HCL INJ (*CRX) 1 MG/ML SYR IV PUSH (10:33)
[2024-06-30] MEDS: SODIUM CHLORIDE 500 MG TABLET PO ×2 (10:34→17:19)
[2024-06-30] MEDS: FUROSEMIDE INJ 40 MG/4 ML VIAL IV PUSH (10:34)
[2024-06-30 11:53] LABS: Glucose Point of Care 259 mg/dl (65-105)
[2024-06-30] MEDS: INSULIN ASPART (*BKC) 100 UNITS/ML SUB-Q ×2 (14:03→17:19)
[2024-06-30 16:21] LABS: Glucose Point of Care 247 mg/dl (65-105)
[2024-06-30] MEDS: HYDROcodone/acetaminophen (*CRX) 5-325 MG TABLET 1 TAB PO (17:30)
[2024-06-30] MEDS: NORTRIPTYLINE HCL 10 MG CAPSULE PO (20:03)
[2024-06-30 21:25] LABS: Glucose Point of Care 288 mg/dl (65-105)
[2024-07-01] VITALS (12 sets, daily range): BP systolic 95–118; BP diastolic 57–70; PULSE 91–118; RESP 16–18; TEMP 36.3–36.5; O2SAT 95–100
[2024-07-01] MEDS: MORPHINE SULFATE (*CRX) 2 MG/ML INJ IV PUSH (00:53)
--- NOTE | 2024-07-01 01:51 | PC.NURSE ---
This patient, Loretta Penn, was transferred to [[id number] ] on 07/01/24 at 0145. Personal belongings sent with patient. Report given to [Linh ]. Appropriate documentation sent with patient.
--- NOTE | 2024-07-01 02:00 | ADMGEN ---
This patient, Loretta Penn, was admitted to Medical Room 258-01. Patient/family oriented to hospital policies and general routines including ID bracelet, bed and alarms, visiting hours, pain management, procedures, bathroom and other care routines, personal items, smoking policy, room service/diet, and visiting hours. Information on how to activate the Rapid Response Team has been discussed. Patient/Family are encouraged to report perceived risks to care and to ask questions if they do not understand what they are told or what they should do.
[2024-07-01 05:11] LABS: Basophils Absolute Auto 0.1 K/mm3 (0.0-0.1); Basophils Percent Auto 0.8 % (0.2-1.2); Eosinophils Absolute Auto 0.3 K/mm3 (0-0.3); Eosinophils Percent Auto 5.4 % (0-4.4); Hematocrit 35.5 % (37.0-47.0); Hemoglobin 11.6 g/dL (12.0-15.0); Immature Granulocyte Absolute 0.07 K/mm3 (0.00-0.031); Immature Granulocyte Percent A 1.1 % (0-0.5); Lymphocytes Absolute Auto 1.12 K/mm3 (0.9-3.2); Lymphocytes Percent Auto 17.7 % (18.3-44.2); Mean Corpuscular HGB Conc 32.7 g/dl (32-36); Mean Corpuscular Hemoglobin 32.7 pg (26-34); Mean Platelet Volume 10.1 fl (7.4-10.4); Monocytes Absolute Auto 0.8 K/mm3 (0.1-0.6); Monocytes Percent Auto 12.9 % (2.6-8.5); Neutrophils Absolute Auto 3.9 K/mm3 (1.3-6.7); Neutrophils Percent Auto 62.1 % (45.5-73.1); Platelet Count Result 145 k/mm3 (150-375); Red Blood Count 3.55 M/mm3 (4.2-5.4); Red Cell Distribution Width 13.9 % (11.5-14.5); White Blood Count 6.3 K/mm3 (4.5-10.0)
[2024-07-01 05:26] LABS: Alanine Aminotransferase 16 U/L (6-35); Albumin Level 2.9 g/dL (3.5-5.1); Alkaline Phosphatase 202 U/L (38-126); Anion Gap 3 mmol/L (4-12); Aspartate Amino Transferase 24 U/L (14-36); Bilirubin,Total 0.9 mg/dL (0.2-1.3); Blood Urea Nitrogen 17 mg/dL (7-17); Calcium 8.3 mg/dL (8.4-10.2); Carbon Dioxide 35 mmol/L (22-30); Chloride 89 mmol/L (98-107); Estimated CRCL calculation 107 ml/min; Estimated Glomerular Filt Rate > 60; Glucose 224 mg/dL (65-110); Magnesium 1.8 mg/dL (1.6-2.3); Potassium 4.1 mmol/L (3.4-5.0); Sodium 127 mmol/L (137-145)
[2024-07-01] MEDS: LEVOTHYROXINE SODIUM 75 MCG TABLET PO (05:58)
[2024-07-01 08:07] LABS: Glucose Point of Care 234 mg/dl (65-105)
[2024-07-01] MEDS: PANTOPRAZOLE 40 MG TABLET PO (08:14)
[2024-07-01] MEDS: MAGNESIUM OXIDE 400 MG TABLET PO (08:14)
[2024-07-01] MEDS: SACUBITRIL/VALSARTAN 24-26 MG TABLET 1 TAB PO ×2 (08:14→16:24)
[2024-07-01] MEDS: POTASSIUM CHLORIDE 20 MEQ ER TABLET PO (08:14)
[2024-07-01] MEDS: METOPROLOL SUCCINATE EXT REL 50 MG TABCR PO (08:15)
[2024-07-01] MEDS: FUROSEMIDE 40 MG TABLET PO (08:15)
[2024-07-01] MEDS: ESCITALOPRAM OXALATE 10 MG TABLET PO (08:15)
[2024-07-01] MEDS: DOCUSATE SODIUM 100 MG CAPSULE PO ×2 (08:15→16:24)
[2024-07-01] MEDS: RIVAROXABAN 20 MG TABLET PO (08:15)
[2024-07-01] MEDS: SODIUM CHLORIDE 500 MG TABLET PO ×2 (08:17→16:24)
[2024-07-01] MEDS: INSULIN GLARGINE (*BKC) 100 UNITS/ML 15 UNITS SUB-Q (08:18)
[2024-07-01] MEDS: INSULIN ASPART (*BKC) 100 UNITS/ML SUB-Q ×3 (08:20→17:21)
[2024-07-01] MEDS: ACETAMINOPHEN 500 MG TABLET 1000 MG PO ×2 (10:14→17:09)
[2024-07-01 12:33] LABS: Glucose Point of Care 285 mg/dl (65-105)
--- NOTE | 2024-07-01 12:33 | P.PNIM_ITS ---
Progress Note: A&P Assessment and Plan (1) Atrial fibrillation with rapid ventricular response: Code(s): I48.91 - Unspecified atrial fibrillation Status: Acute (2) UTI (urinary tract infection): Code(s): N39.0 - Urinary tract infection, site not specified Status: Acute (3) Generalized pain: Code(s): R52 - Pain, unspecified Status: Acute (4) Thrombocytopenia: Code(s): D69.6 - Thrombocytopenia, unspecified Status: Acute (5) Hypothyroidism: Code(s): E03.9 - Hypothyroidism, unspecified Status: Chronic (6) HTN (hypertension): Code(s): I10 - Essential (primary) hypertension Status: Chronic (7) Diabetes: Code(s): E11.9 - Type 2 diabetes mellitus without complications Status: Acute (8) Heart failure: Code(s): I50.9 - Heart failure, unspecified Status: Acute (9) AICD (automatic cardioverter/defibrillator) present: Code(s): Z95.810 - Presence of automatic (implantable) cardiac defibrillator Status: Acute (10) Pacemaker: Code(s): Z95.0 - Presence of cardiac pacemaker Status: Acute (11) Atrial fibrillation: Code(s): I48.91 - Unspecified atrial fibrillation Status: Chronic (12) GERD (gastroesophageal reflux disease): Code(s): K21.9 - Gastro-esophageal reflux disease without esophagitis Status: Chronic Plan 63-year-old female presenting with right flank pain. States that it started ea rlier today. Associated with foul-smelling urine. States that sometimes it feels like the pain goes down her right leg. No numbness or weakness. No further complaints. on ED evaluation vitals were within normal limit. She was diffusely tender in her abdomen with right CVA tenderness. WBC 6.2 hemoglobin 11.9 platelet 119 sodium was mildly low at 129 creatinine 0.7 blood sugars 192. Lipase normal at 18 troponin was negative less than 0.012 mildly elevated LFTs. Urinalysis with more than 100 RBC WBC 0-[address] abdomen pelvis showed no acute abdominal process no kidney stones sliding hiatal hernia. CT lumbar spine with disc bulge at level of L3-L4 with left posterolateral disc protrusion with narrowing with root compression. Multilevel facet joint disease. Bilateral sacroiliitis. While in the ER her heart rate jumped up and noted to be in AFib with RVR. She does have history of atrial fibrillation and is chronically anticoagulated she was started on diltiazem drip. IV Rocephin was also given for Possible UTI. She is admitted in this setting for further treatment. 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 She has already completed her IV antibiotic course on 06/21/2024 She was recently admitted and discharged on 06/21/2024 after a fall and finding of unsustained ventricular tachycardia chief had a syncopal episode fell forward and hit her head. She has a laceration which has been sutured since then. Her AICD was interrogated and had 5 discharges noted. She was treated with Ancef for her endocarditis. She also had a clot in her left atrial appendage is and cardioversion for atrial fibrillation was canceled. She has been on Xarelto sin ce then. She had been to ER again on 06/26/2024 with abdominal pain vomiting and diarrhea for 3 days and weakness no fever family reports some chills. Laboratory evaluation showed mild WBC 11.5 rest of the labs were unremarkable. CT abdomen and pelvis was done which showed no acute intra-abdominal abnormality. Urinalysis at that time also showed 11-20 RBC 0-5 WBC diltiazem drip tapered off and restarted her metoprolol. Monitor on telemetry. UTI: urine culture positive for e coli. on ceftriaxone. will continue same. Sensitive to ceftriaxone Hypoxia: mild. has underlying sleep apnea. but not tolerating CPAP at home. cxr with congestive changes. Order Lasix IV x1 06/30 Continue Xarelto hyponatremia worsened down to 123. Check TSH urine lytes cortisol. Add salt tablets. Sodium level improved Ventricular tachycardia Chronic diastolic congestive heart failure Status post AICD placement Recent endocarditis Paroxysmal atrial fibrillation GERD Hypothyroidism check TSH Type 2 diabetes Diffuse disc bulge L3-L4 with left posterolateral disc protrusion with narrowing with root compression/bilateral sacroiliitis, lumbar degenerative disc disease. Will add Flexeril Hiatal hernia sliding DVT prophylaxis on Xarelto Code status full code Subjective Date/time seen: 07/01/24 12:33 Interval history: Complains of back hurting no specific area reported. Denies any leg weakness patient ambulating. Urinating okay Review of Systems Review of Systems: All systems reviewed & are unremarkable except as noted in HPI and below Exam Narrative: GENERAL: Chronically ill-appearing, not in acute distress HEAD: Normocephalic, atraumatic. EYES: PERRLA and EOMI. NECK: Supple. CHEST: Clear to auscultation. No respiratory distress. HEART: Regular rate and rhythm ABDOMEN: Soft, nontender; no organomegaly EXTREMITIES: No edema cyanosis or clubbing SKIN: Warm, dry, no rash. NEURO: Alert and conversant, somewhat confused BACK: Tender paraspinal area in lumbar area PSYCH: Mildly anxious Objective Data Vital Signs Vital Signs: Vital Signs - 24 hr 06/30/24 14:00 06/30/24 15:39 06/30/24 15:39 Temperature Pulse Rate 93 93 93 Respiratory Rate 20 Blood Pressure Pulse Oximetry 97 Oxygen Delivery Nasal Cannula Oxygen Flow Rate 4 06/30/24 17:50 06/30/24 20:00 06/30/24 20:00 Temperature 97.7 F Pulse Rate 95 102 H 101 H Respiratory Rate 18 Blood Pressure 128/61 Pulse Oximetry 98 Oxygen Delivery Oxygen Flow Rate 07/01/24 00:00 07/01/24 00:00 07/01/24 02:06 Temperature 97.7 F 97.7 F Pulse Rate 107 H 98 101 H Respiratory Rate 18 18 Blood Pressure 108/60 113/57 L Pulse Oximetry 98 100 Oxygen Delivery Oxygen Flow Rate 07/01/24 04:00 07/01/24 08:12 07/01/24 08:15 Temperature 97.3 F L Pulse Rate 91 108 H 108 H Respiratory Rate 16 Blood Pressure 118/70 Pulse Oximetry 99 Oxygen Delivery Oxygen Flow Rate 07/01/24 08:14 07/01/24 08:14 Temperature Pulse Rate 110 H Respiratory Rate Blood Pressure Pulse Oximetry 96 Oxygen Delivery Nasal Cannula Oxygen Flow Rate 2 Intake/Output Intake/Output: Intake & Output 06/28/24 06/29/24 06/30/24 07/01/24 23:59 23:59 23:59 23:59 Intake Total 1110.3 1250.7 1220 480 Output Total 50 550 Balance 1060.3 1250.7 1220 -70 Meds/Results Medications: Active Medications Generic Name Dose Route Start Last Admin Trade Name Freq PRN Reason Stop Dose Admin Acetaminophen 1,000 mg 06/30/24 04:04 07/01/24 10:14 Acetaminophen 500 Mg Tablet PO 1,000 mg Q6H PRN Administration Mild Pain (1-3) or Fever Hydrocodone Bitart/Acetaminophen 1 tab 06/30/24 14:17 06/30/24 17:30 Hydrocodone/Acetaminophen (*Crx) 5-325 Mg Tablet PO 1 tab Q6H PRN Administration Pain Rated 4-6 Dextrose 12.5 gm 06/29/24 08:56 Dextrose 50% 25 Gm/50 Ml Syringe IV PUSH PRN PRN Hypoglycemia Protocol Docusate Sodium 100 mg 06/29/24 09:00 07/01/24 08:15 Docusate Sodium 100 Mg Capsule PO 100 mg BID GALINA Administration Escitalopram Oxalate 10 mg 06/29/24 09:00 07/01/24 08:15 Escitalopram Oxalate 10 Mg Tablet PO 10 mg DAILY GALINA Administration Furosemide 40 mg 06/29/24 09:00 07/01/24 08:15 Furosemide 40 Mg Tablet PO 40 mg DAILY GALINA Administration Glucagon 1 mg 06/29/24 08:56 Glucagon For Inj 1 Mg Vial IM PRN PRN Hypoglycemia Protocol Glucose 15 gm 06/29/24 08:56 Glucose Oral Gel 15 Gm Of Glucse In 37.5 Gm Tube PO PRN PRN Hypoglycemia Protocol Dextrose 1,000 mls @ 100 mls/hr 06/29/24 08:56 Dextrose 5% 1,000 Ml IVPB PRN PRN Hypoglycemia Protocol Ceftriaxone Sodium 1 gm in 50 mls @ 100 mls/hr 06/29/24 17:00 06/30/24 17:19 Rocephin 1 Gm/Ns 50 Ml IVPB 100 mls/hr Q24H GALINA Administration Insulin Aspart 2 - 5 units 06/29/24 12:00 07/01/24 08:20 Insulin Aspart (*Bkc) 100 Units/Ml SUB-Q 2 units TIDWM GALINA Administration Protocol Insulin Glargine 15 units 06/29/24 09:00 07/01/24 08:18 Insulin Glargine (*Bkc) 100 Units/Ml SUB-Q 15 units DAILY GALINA Administration Levothyroxine Sodium 75 mcg 06/29/24 11:00 07/01/24 05:58 Levothyroxine Sodium 75 Mcg Tablet PO 75 mcg DAILY@0630 GALINA Administration Magnesium Oxide 400 mg 06/29/24 09:00 07/01/24 08:14 Magnesium Oxide 400 Mg Tablet PO 400 mg DAILY GALINA Administration Metoprolol Succinate 50 mg 06/29/24 09:00 07/01/24 08:15 Metoprolol Succinate Ext Rel 50 Mg Tabcr PO 50 mg DAILY GALINA Administration Midodrine 2.5 mg 06/29/24 08:49 Midodrine Hcl 2.5 Mg Tablet PO Q12H PRN Hypotension Miscellaneous Information 1 each 06/29/24 00:01 Please Clarify Home Insulin Aspart Dosing. Order Is Entered As 6 Units Tidwm, Home Says 10 XX 07/29/24 00:00 CLARIFY GALINA Miscellaneous Information 1 each 06/29/24 00:01 Vibegron Nonformulary. Can Patient Use From Home Or Hold Till Discharge? XX 07/29/24 00:00 CLARIFY GALINA Morphine Sulfate 2 mg 06/29/24 10:40 07/01/24 00:53 Morphine Sulfate (*Crx) 2 Mg/Ml Inj IV PUSH 2 mg Q4H PRN Administration Pain Non-Formulary Medication 75 mg 06/29/24 09:00 Vibegron [Gemtesa] PO 07/29/24 08:59 DAILY GALINA Non-Formulary Medication 6 unit 06/29/24 09:00 Insulin Aspart U-100 [Novolog Flexpen U-100 Insulin] SUB-Q 07/29/24 08:59 TIDWMEAL GALINA Nortriptyline HCl 10 mg 06/29/24 21:00 06/30/24 20:03 Nortriptyline Hcl 10 Mg Capsule PO 10 mg HS GALINA Administration Pantoprazole Sodium 40 mg 06/30/24 09:00 07/01/24 08:14 Pantoprazole 40 Mg Tablet PO 40 mg QAM GALINA Administration Perflutren Lipid Microsphere 0 ml 06/29/24 10:55 Perflutren Lipid Microspheres 1.5 Ml Vial Diluted To 10 Ml Total Volume IV PUSH 07/02/24 10:55 ONCE PRN adequate visualization Protocol Potassium Chloride 20 meq 06/30/24 09:00 07/01/24 08:14 Potassium Chloride 20 Meq Er Tablet PO 20 meq DAILY GALINA Administration Rivaroxaban 20 mg 06/29/24 09:00 07/01/24 08:15 Rivaroxaban 20 Mg Tablet PO 20 mg DAILY GALINA Administration Sacubitril/Valsartan 1 tab 06/29/24 09:00 07/01/24 08:14 Sacubitril/Valsartan 24-26 Mg Tablet PO 1 tab BID GALINA Administration Sodium Chloride 500 mg 06/30/24 09:00 07/01/24 08:17 Sodium Chloride 500 Mg Tablet PO 500 mg BID GALINA Administration Radiology Results: ITS Impressions Miscellaneous CT Procedure 06/28/24 21:54 IMPRESSION: 1. No acute abdominal process with no evidence of appendicitis, diverticulitis or intestinal obstruction. No kidney stones seen. 2. Sliding hiatus hernia. CT abd pelvis lumbar wo con Ordering provider: Mia Rios MD History: 63 years Female with . R flank pain . Comparison: None. Technique: CT lumbar spine without contrast. Automated exposure control and iterative reconstruction technique were employed. The dose-length product was 1618.46 mGy-cm. FINDINGS: [place]RAE: Normal height and alignment. No subluxation or visible acute fracture. Degenerative changes. DISC SPACES: Well maintained. Multilevel facet joint disease. Diffuse disc bulge at the level of L3-4 with left posterolateral disc protrusion with narrowing with root compression. PARASPINOUS SOFT TISSUES: Normal. Bilateral sacroiliitis. IMPRESSION: No acute osseous abnormality seen. Chest X-Ray 06/30/24 09:51 IMPRESSION: 1. Mild pulmonary edema. 2. Cardiomegaly. Labs Labs: Laboratory Results - last 24 hr 06/30/24 06/30/24 07/01/24 16:16 21:22 04:38 WBC 6.3 RBC 3.55 L Hgb 11.6 L Hct 35.5 L MCV 100.0 MCH 32.7 MCHC 32.7 RDW 13.9 Plt Count 145 L MPV 10.1 Immature Gran % (Auto) 1.1 H Neut % (Auto) 62.1 Lymph % (Auto) 17.7 L [place] % (Auto) 12.9 H Eos % (Auto) 5.4 H Baso % (Auto) 0.8 Lymph # (Auto) 1.12 [place] # (Auto) 0.8 H Eos # (Auto) 0.3 Baso # (Auto) 0.1 Abs Immat Gran (auto) 0.07 H Absolute Neuts (auto) 3.9 Absolute Nucleated RBC 0.000 Nucleated RBC % 0.0 Sodium 127 L Potassium 4.1 Chloride 89 L Carbon Dioxide 35 H Anion Gap 3 L BUN 17 Creatinine 0.60 L Estim Creat Clear Calc 107 Estimated GFR > 60 Glucose 224 H POC Capillary Glucose 247 H 288 H Calcium 8.3 L Magnesium 1.8 Total Bilirubin 0.9 AST 24 ALT 16 Alkaline Phosphatase 202 H Total Protein 6.0 L Albumin 2.9 L 07/01/24 07/01/24 08:01 12:30 WBC RBC Hgb Hct MCV MCH MCHC RDW Plt Count MPV Immature Gran % (Auto) Neut % (Auto) Lymph % (Auto) [place] % (Auto) Eos % (Auto) Baso % (Auto) Lymph # (Auto) [place] # (Auto) Eos # (Auto) Baso # (Auto) Abs Immat Gran (auto) Absolute Neuts (auto) Absolute Nucleated RBC Nucleated RBC % Sodium Potassium Chloride Carbon Dioxide Anion Gap BUN Creatinine Estim Creat Clear Calc Estimated GFR Glucose POC Capillary Glucose 234 H 285 H Calcium Magnesium Total Bilirubin AST ALT Alkaline Phosphatase Total Protein Albumin
[2024-07-01] MEDS: HYDROcodone/acetaminophen (*CRX) 5-325 MG TABLET 1 TAB PO ×2 (12:45→19:35)
[2024-07-01 13:46] LABS: Creatinine Urine 56.4 mg/dL; Sodium Urine Random 60 meq/L; Urea Random Urine 710 MG/DL
[2024-07-01 15:30] LABS: Vitamin D 25 Hydroxy 47.8 ng/mL
[2024-07-01 17:03] LABS: Glucose Point of Care 289 mg/dl (65-105)
[2024-07-01 19:14] LABS: Glucose Point of Care 222 mg/dl (65-105)
[2024-07-01] MEDS: INSULIN ASPART (*BKC) 100 UNITS/ML 10 UNITS SUB-Q (19:16)
--- NOTE | 2024-07-01 19:44 | PHAR ---
HOME MED: GEMTESA 75 MG (VIBEGRON) TABLETS VERIFIED BY PHARMACY
[2024-07-01] MEDS: NORTRIPTYLINE HCL 10 MG CAPSULE PO (20:22)
[2024-07-01 22:11] LABS: Glucose Point of Care 129 mg/dl (65-105)
[2024-07-02] VITALS (11 sets, daily range): BP systolic 94–129; BP diastolic 65–80; PULSE 90–113; RESP 16–18; TEMP 35.9–36.8; O2SAT 95–97
[2024-07-02] MEDS: HYDROcodone/acetaminophen (*CRX) 5-325 MG TABLET 1 TAB PO ×3 (01:27→19:51)
[2024-07-02] MEDS: LEVOTHYROXINE SODIUM 75 MCG TABLET PO (06:00)
[2024-07-02] MEDS: CYCLOBENZAPRINE HCL 5 MG TABLET PO ×2 (06:00→19:51)
--- NOTE | 2024-07-02 06:28 | P.CDI_ITS ---
CDI Query Clarification Request BMI: 41.6 Nutritional Diagnostic Statement: Please refer to the comprehensive nutrition assessment for further information. If you agree with diagnosis of Moderate protein calorie malnutrition related to chronic illness, recent hospitalization as evidenced by intakes <75% needs >1 month; weight loss -27 lbs, 10%/1 month. Please specify severity if known: * Mild * Moderate * Severe * Other/Unknown <Irma Sanchez RN - Last Filed: 07/02/24 06:29> Provider Comments moderate protein calorie malnutrition <Raymundo Hadley MD - Last Filed: 07/03/24 15:16>
[2024-07-02 07:41] LABS: Glucose Point of Care 262 mg/dl (65-105)
[2024-07-02] MEDS: INSULIN ASPART (*BKC) 100 UNITS/ML 10 UNITS SUB-Q ×3 (08:03→17:45)
[2024-07-02] MEDS: INSULIN ASPART (*BKC) 100 UNITS/ML SUB-Q ×2 (08:03→11:37)
[2024-07-02] MEDS: INSULIN GLARGINE (*BKC) 100 UNITS/ML 18 UNITS SUB-Q (08:06)
[2024-07-02] MEDS: POTASSIUM CHLORIDE 20 MEQ ER TABLET PO (08:09)
[2024-07-02] MEDS: RIVAROXABAN 20 MG TABLET PO (08:09)
[2024-07-02] MEDS: ACETAMINOPHEN 500 MG TABLET 1000 MG PO ×2 (08:09→16:22)
[2024-07-02] MEDS: METOPROLOL SUCCINATE EXT REL 50 MG TABCR PO (08:09)
[2024-07-02] MEDS: MAGNESIUM OXIDE 400 MG TABLET PO (08:09)
[2024-07-02] MEDS: DOCUSATE SODIUM 100 MG CAPSULE PO ×2 (08:10→16:23)
[2024-07-02] MEDS: FUROSEMIDE 40 MG TABLET PO (08:10)
[2024-07-02] MEDS: SACUBITRIL/VALSARTAN 24-26 MG TABLET 1 TAB PO ×2 (08:10→16:23)
[2024-07-02] MEDS: PANTOPRAZOLE 40 MG TABLET PO (08:10)
[2024-07-02] MEDS: ESCITALOPRAM OXALATE 10 MG TABLET PO (08:10)
[2024-07-02] MEDS: SODIUM CHLORIDE 500 MG TABLET PO ×2 (08:10→16:23)
--- NOTE | 2024-07-02 08:41 | P.PNIM_ITS ---
Progress Note: A&P Assessment and Plan (1) Atrial fibrillation with rapid ventricular response: Code(s): I48.91 - Unspecified atrial fibrillation Status: Acute (2) UTI (urinary tract infection): Code(s): N39.0 - Urinary tract infection, site not specified Status: Acute (3) Generalized pain: Code(s): R52 - Pain, unspecified Status: Acute (4) Thrombocytopenia: Code(s): D69.6 - Thrombocytopenia, unspecified Status: Acute (5) Hypothyroidism: Code(s): E03.9 - Hypothyroidism, unspecified Status: Chronic (6) HTN (hypertension): Code(s): I10 - Essential (primary) hypertension Status: Chronic (7) Diabetes: Code(s): E11.9 - Type 2 diabetes mellitus without complications Status: Acute (8) Heart failure: Code(s): I50.9 - Heart failure, unspecified Status: Acute (9) AICD (automatic cardioverter/defibrillator) present: Code(s): Z95.810 - Presence of automatic (implantable) cardiac defibrillator Status: Acute (10) Pacemaker: Code(s): Z95.0 - Presence of cardiac pacemaker Status: Acute (11) Atrial fibrillation: Code(s): I48.91 - Unspecified atrial fibrillation Status: Chronic (12) GERD (gastroesophageal reflux disease): Code(s): K21.9 - Gastro-esophageal reflux disease without esophagitis Status: Chronic Plan 63-year-old female presenting with right flank pain. States that it started ea rlier today. Associated with foul-smelling urine. States that sometimes it feels like the pain goes down her right leg. No numbness or weakness. No further complaints. on ED evaluation vitals were within normal limit. She was diffusely tender in her abdomen with right CVA tenderness. WBC 6.2 hemoglobin 11.9 platelet 119 sodium was mildly low at 129 creatinine 0.7 blood sugars 192. Lipase normal at 18 troponin was negative less than 0.012 mildly elevated LFTs. Urinalysis with more than 100 RBC WBC 0-[address] abdomen pelvis showed no acute abdominal process no kidney stones sliding hiatal hernia. CT lumbar spine with disc bulge at level of L3-L4 with left posterolateral disc protrusion with narrowing with root compression. Multilevel facet joint disease. Bilateral sacroiliitis. While in the ER her heart rate jumped up and noted to be in AFib with RVR. She does have history of atrial fibrillation and is chronically anticoagulated she was started on diltiazem drip. IV Rocephin was also given for Possible UTI. She is admitted in this setting for further treatment. 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 She has already completed her IV antibiotic course on 06/21/2024 She was recently admitted and discharged on 06/21/2024 after a fall and finding of unsustained ventricular tachycardia chief had a syncopal episode fell forward and hit her head. She has a laceration which has been sutured since then. Her AICD was interrogated and had 5 discharges noted. She was treated with Ancef for her endocarditis. She also had a clot in her left atrial appendage is and cardioversion for atrial fibrillation was canceled. She has been on Xarelto sin ce then. She had been to ER again on 06/26/2024 with abdominal pain vomiting and diarrhea for 3 days and weakness no fever family reports some chills. Laboratory evaluation showed mild WBC 11.5 rest of the labs were unremarkable. CT abdomen and pelvis was done which showed no acute intra-abdominal abnormality. Urinalysis at that time also showed 11-20 RBC 0-5 WBC diltiazem drip tapered off and restarted her metoprolol. Monitor on telemetry. UTI: urine culture positive for e coli. on ceftriaxone. will continue same. Sensitive to ceftriaxone renal ultrasound unremarkable Hypoxia: mild. has underlying sleep apnea. but not tolerating CPAP at home. cxr with congestive changes. Order Lasix IV x1 06/30 . This has resolved now Continue Xarelto hyponatremia worsened down to 123. TSH within normal limits. urine lytes cortisol. Add salt tablets. Sodium level improved Ventricular tachycardia Chronic diastolic congestive heart failure Status post AICD placement Recent endocarditis Paroxysmal atrial fibrillation GERD Hypothyroidism TSH within normal limits Type 2 diabetes Diffuse disc bulge L3-L4 with left posterolateral disc protrusion with narrowing with root compression/bilateral sacroiliitis, lumbar degenerative disc disease. Will add Flexeril. Back pain still persist. Will repeat CT lumbar spine with contrast to further evaluate Hiatal hernia sliding DVT prophylaxis on Xarelto Code status full code Subjective Date/time seen: 07/02/24 08:41 Interval history: No overnight events. continues to have some back pain. Constipated. Remains afebrile. PT OT yet to see Review of Systems Review of Systems: All systems reviewed & are unremarkable except as noted in HPI and below Exam Narrative: GENERAL: Chronically ill-appearing, not in acute distress HEAD: Normocephalic, atraumatic. EYES: PERRLA and EOMI. NECK: Supple. CHEST: Clear to auscultation. No respiratory distress. HEART: Regular rate and rhythm ABDOMEN: Soft, nontender; no organomegaly EXTREMITIES: No edema cyanosis or clubbing SKIN: Warm, dry, no rash. NEURO: Alert and conversant, somewhat confused BACK: Tender paraspinal area in lumbar area PSYCH: Mildly anxious Objective Data Vital Signs Vital Signs: Vital Signs - 24 hr 07/01/24 12:00 07/01/24 14:03 07/01/24 14:10 Temperature 97.6 F Pulse Rate 112 H 93 Respiratory Rate 18 Blood Pressure 95/59 L 108/68 Pulse Oximetry 95 Oxygen Delivery 07/01/24 15:59 07/01/24 16:00 07/01/24 20:00 Temperature Pulse Rate 96 118 H Respiratory Rate Blood Pressure Pulse Oximetry 100 Oxygen Delivery Room Air 07/02/24 00:00 07/02/24 04:00 07/02/24 04:32 Temperature 98 F Pulse Rate 90 108 H 100 Respiratory Rate 18 Blood Pressure 116/65 Pulse Oximetry 97 Oxygen Delivery 07/02/24 07:59 07/02/24 08:09 07/02/24 08:09 Temperature 96.7 F L Pulse Rate 100 100 Respiratory Rate 16 Blood Pressure 129/69 Pulse Oximetry 95 95 Oxygen Delivery Room Air Intake/Output Intake/Output: Intake & Output 06/29/24 06/30/24 07/01/24 07/02/24 23:59 23:59 23:59 23:59 Intake Total 1250.7 1270 650 Output Total 1350 Balance 1250.7 1270 -700 Meds/Results Medications: Active Medications Generic Name Dose Route Start Last Admin Trade Name Freq PRN Reason Stop Dose Admin Acetaminophen 1,000 mg 06/30/24 04:04 07/02/24 08:09 Acetaminophen 500 Mg Tablet PO 1,000 mg Q6H PRN Administration Mild Pain (1-3) or Fever Hydrocodone Bitart/Acetaminophen 1 tab 06/30/24 14:17 07/02/24 01:27 Hydrocodone/Acetaminophen (*Crx) 5-325 Mg Tablet PO 1 tab Q6H PRN Administration Pain Rated 4-6 Cyclobenzaprine HCl 5 mg 07/01/24 12:36 07/02/24 06:00 Cyclobenzaprine Hcl 5 Mg Tablet PO 5 mg Q8H PRN Administration Muscle Spasm Dextrose 12.5 gm 06/29/24 08:56 Dextrose 50% 25 Gm/50 Ml Syringe IV PUSH PRN PRN Hypoglycemia Protocol Docusate Sodium 100 mg 06/29/24 09:00 07/02/24 08:10 Docusate Sodium 100 Mg Capsule PO 100 mg BID GALINA Administration Escitalopram Oxalate 10 mg 06/29/24 09:00 07/02/24 08:10 Escitalopram Oxalate 10 Mg Tablet PO 10 mg DAILY GALINA Administration Furosemide 40 mg 06/29/24 09:00 07/02/24 08:10 Furosemide 40 Mg Tablet PO 40 mg DAILY GALINA Administration Glucagon 1 mg 06/29/24 08:56 Glucagon For Inj 1 Mg Vial IM PRN PRN Hypoglycemia Protocol Glucose 15 gm 06/29/24 08:56 Glucose Oral Gel 15 Gm Of Glucse In 37.5 Gm Tube PO PRN PRN Hypoglycemia Protocol Dextrose 1,000 mls @ 100 mls/hr 06/29/24 08:56 Dextrose 5% 1,000 Ml IVPB PRN PRN Hypoglycemia Protocol Ceftriaxone Sodium 1 gm in 50 mls @ 100 mls/hr 06/29/24 17:00 07/01/24 16:50 Rocephin 1 Gm/Ns 50 Ml IVPB Infused Q24H GALINA Infusion Insulin Aspart 2 - 5 units 06/29/24 12:00 07/02/24 08:03 Insulin Aspart (*Bkc) 100 Units/Ml SUB-Q 3 units TIDWM GLAINA Administration Protocol Insulin Aspart 10 units 07/01/24 17:00 07/02/24 08:03 Insulin Aspart (*Bkc) 100 Units/Ml SUB-Q 10 units TIDWM GALINA Administration Insulin Glargine 18 units 07/02/24 09:00 07/02/24 08:06 Insulin Glargine (*Bkc) 100 Units/Ml SUB-Q 18 units DAILY GALINA Administration Levothyroxine Sodium 75 mcg 06/29/24 11:00 07/02/24 06:00 Levothyroxine Sodium 75 Mcg Tablet PO 75 mcg DAILY@0630 GALINA Administration Magnesium Oxide 400 mg 06/29/24 09:00 07/02/24 08:09 Magnesium Oxide 400 Mg Tablet PO 400 mg DAILY GALINA Administration Metoprolol Succinate 50 mg 06/29/24 09:00 07/02/24 08:09 Metoprolol Succinate Ext Rel 50 Mg Tabcr PO 50 mg DAILY GALINA Administration Midodrine 2.5 mg 06/29/24 08:49 Midodrine Hcl 2.5 Mg Tablet PO Q12H PRN Hypotension Miscellaneous Information 1 each 07/02/24 08:25 Pharmacist Communication Order XX 07/02/24 08:26 ONCE ONE Morphine Sulfate 2 mg 06/29/24 10:40 07/01/24 00:53 Morphine Sulfate (*Crx) 2 Mg/Ml Inj IV PUSH 2 mg Q4H PRN Administration Pain Non-Formulary ( 1 each 07/02/24 09:00 Vibegron 75 Mg Oral PO 08/01/24 08:59 Tablet) DAILY GALINA Nortriptyline HCl 10 mg 06/29/24 21:00 07/01/24 20:22 Nortriptyline Hcl 10 Mg Capsule PO 10 mg HS GALINA Administration Pantoprazole Sodium 40 mg 06/30/24 09:00 07/02/24 08:10 Pantoprazole 40 Mg Tablet PO 40 mg QAM GALINA Administration Perflutren Lipid Microsphere 0 ml 06/29/24 10:55 Perflutren Lipid Microspheres 1.5 Ml Vial Diluted To 10 Ml Total Volume IV PUSH 07/02/24 10:55 ONCE PRN adequate visualization Protocol Potassium Chloride 20 meq 06/30/24 09:00 07/02/24 08:09 Potassium Chloride 20 Meq Er Tablet PO 20 meq DAILY GALINA Administration Rivaroxaban 20 mg 06/29/24 09:00 07/02/24 08:09 Rivaroxaban 20 Mg Tablet PO 20 mg DAILY GALINA Administration Sacubitril/Valsartan 1 tab 06/29/24 09:00 07/02/24 08:10 Sacubitril/Valsartan 24-26 Mg Tablet PO 1 tab BID GALINA Administration Sodium Chloride 500 mg 06/30/24 09:00 07/02/24 08:10 Sodium Chloride 500 Mg Tablet PO 500 mg BID GALINA Administration Radiology Results: ITS Impressions Miscellaneous CT Procedure 06/28/24 21:54 IMPRESSION: 1. No acute abdominal process with no evidence of appendicitis, diverticulitis or intestinal obstruction. No kidney stones seen. 2. Sliding hiatus hernia. CT abd pelvis lumbar wo con Ordering provider: Mia Rios MD History: 63 years Female with . R flank pain . Comparison: None. Technique: CT lumbar spine without contrast. Automated exposure control and iterative reconstruction technique were employed. The dose-length product was 1618.46 mGy-cm. FINDINGS: VERTEBRAE: Normal height and alignment. No subluxation or visible acute fracture. Degenerative changes. DISC SPACES: Well maintained. Multilevel facet joint disease. Diffuse disc bulge at the level of L3-4 with left posterolateral disc protrusion with narrowing with root compression. PARASPINOUS SOFT TISSUES: Normal. Bilateral sacroiliitis. IMPRESSION: No acute osseous abnormality seen. Chest X-Ray 06/30/24 09:51 IMPRESSION: 1. Mild pulmonary edema. 2. Cardiomegaly. Renal Ultrasound 07/01/24 14:40 IMPRESSION: No significant abnormality Labs Labs: Laboratory Results - last 24 hr 07/01/24 07/01/24 07/01/24 04:36 12:30 13:30 POC Capillary Glucose 285 H Vitamin D 25-Hydroxy 47.8 Ur Random Sodium 60 Ur Random Urea 710 Urine Creatinine 56.4 07/01/24 07/01/24 07/01/24 17:00 19:12 22:07 POC Capillary Glucose 289 H 222 H 129 H Vitamin D 25-Hydroxy Ur Random Sodium Ur Random Urea Urine Creatinine 07/02/24 07:38 POC Capillary Glucose 262 H Vitamin D 25-Hydroxy Ur Random Sodium Ur Random Urea Urine Creatinine
--- NOTE | 2024-07-02 08:52 | PHAR ---
Pharmacy verified home med: vibegron 75 mg ORAL tablet take 1 tablet by mouth once daily
[2024-07-02 11:28] LABS: Basophils Absolute Auto 0.1 K/mm3 (0.0-0.1); Eosinophils Absolute Auto 0.2 K/mm3 (0-0.3); Eosinophils Percent Auto 3.2 % (0-4.4); Hemoglobin 11.5 g/dL (12.0-15.0); Immature Granulocyte Absolute 0.27 K/mm3 (0.00-0.031); Immature Granulocyte Percent A 3.7 % (0-0.5); Lymphocytes Absolute Auto 1.31 K/mm3 (0.9-3.2); Lymphocytes Percent Auto 18.1 % (18.3-44.2); Mean Corpuscular HGB Conc 32.9 g/dl (32-36); Mean Corpuscular Hemoglobin 32.8 pg (26-34); Mean Corpuscular Volume 99.7 fl (80-100); Mean Platelet Volume 9.5 fl (7.4-10.4); Monocytes Absolute Auto 0.7 K/mm3 (0.1-0.6); Monocytes Percent Auto 9.7 % (2.6-8.5); Neutrophils Absolute Auto 4.7 K/mm3 (1.3-6.7); Neutrophils Percent Auto 64.3 % (45.5-73.1); Platelet Count Result 194 k/mm3 (150-375); Red Blood Count 3.51 M/mm3 (4.2-5.4); Red Cell Distribution Width 14.1 % (11.5-14.5); White Blood Count 7.2 K/mm3 (4.5-10.0)
[2024-07-02 11:36] LABS: Glucose Point of Care 250 mg/dl (65-105)
[2024-07-02 11:45] LABS: Alanine Aminotransferase 17 U/L (6-35); Albumin Level 2.9 g/dL (3.5-5.1); Alkaline Phosphatase 197 U/L (38-126); Anion Gap 3 mmol/L (4-12); Aspartate Amino Transferase 30 U/L (14-36); Bilirubin,Total 0.6 mg/dL (0.2-1.3); Blood Urea Nitrogen 12 mg/dL (7-17); Calcium 8.3 mg/dL (8.4-10.2); Carbon Dioxide 35 mmol/L (22-30); Chloride 90 mmol/L (98-107); Estimated CRCL calculation 127 ml/min; Estimated Glomerular Filt Rate > 60; Glucose 237 mg/dL (65-110); Magnesium 1.6 mg/dL (1.6-2.3); Potassium 3.8 mmol/L (3.4-5.0); Sodium 128 mmol/L (137-145)
[2024-07-02 11:47] LABS: CRP 7.1 mg/dL (<1.0)
[2024-07-02 11:50] LABS: Atypical Lymphocytes Present; Hypochromasia 1+; Platelet Estimate Adequate (Adequate); Schistocytes None Seen
[2024-07-02] MEDS: DOXYCYCLINE HYCLATE 100 MG TABLET PO ×2 (14:48→19:51)
[2024-07-02] MEDS: AMOXICILLIN/CLAVULANATE K 875-125 MG TAB 1 TABLET PO (16:22)
[2024-07-02] MEDS: BISACODYL 10 MG SUPPOSITORY RECTAL (16:28)
[2024-07-02 16:54] LABS: Glucose Point of Care 127 mg/dl (65-105)
--- NOTE | 2024-07-02 18:30 | WPDNEUROSGCN ---
Assessment and Plan Assessment and plan (1) Back pain: Code(s): M54.9 - Dorsalgia, unspecified Status: Acute Plan I was consulted today regarding this patient who was admitted on June 29 with right flank pain and an associated UTI whose hospitalization has been complicated by atrial fibrillation with RVR. She has been recently admitted multiple times for endocarditis of the tricuspid valve in May for which she was treated with IV antibiotics as well as multiple discharges of her AICD. She is on Xarelto for a clot in her left atrial appendage. She was also seen in the ER recently for abdominal pain, vomiting, and diarrhea. Neurosurgery was consulted today for some continued back pain because of CT scan that showed a possible disc bulge on the left side at L3-4. A repeat CT scan was performed today on which there is no obvious central or neuroforaminal stenosis. An MRI has not been obtained to date. If this problem is truly felt to require inpatient neurosurgical evaluation, I would recommend obtaining an MRI lumbar spine without and with contrast given her recent endocarditis. Presumably, this would not be able to be done at [place] because of her defibrillator. In that case, a CT myelogram of the lumbar spine could be performed, but this would require her Xarelto to be held. According to the notes, she has been complaining of right-sided flank pain which would not make sense in the setting of a left-sided disc bulge at L3-4. I do not see any pathology on the CT scan which would warrant any surgical intervention at this time. Regardless, she is a poor surgical candidate with her other multiple medical comorbidities and anticoagulation use at this time, and in the setting of back pain, I would recommend physical therapy and pain control with medical management anyway. I would be happy to see her as an outpatient for her back pain with an MRI lumbar spine or CT myelogram. If these are completed as an inpatient and a neurosurgical evaluation is still requested, please notify us when these images are complete. Consult date: 07/02/24 HPI: Loretta Penn is a 63 year old female [facility] Past Medical History Medical History Atrial fibrillation Bacteremia Diabetes GERD (gastroesophageal reflux disease) HTN (hypertension) Hypothyroidism Overactive bladder Pacemaker Thrombocytopenia Surgical History Surgical History AICD (automatic cardioverter/defibrillator) present Family History Family History Other Unknown family medical history Social History Social History Smoking status: Former smoker Alcohol intake: never Substance use: current Substance use type: marijuana Do You Feel Safe in your Home?: Yes Lack of Transportation: No Lack of Food: Never True Current Housing: I Have Housing Concerned About Future Housing: No Difficulty Paying Gas/Electric Bills: No Difficulty Paying for Meds: No Currently Unemployed: No Education: Grade School Difficulty w/ Childcare or Family Care: No Gender identity (if verbalized by the patient): Female Spiritual care concerns: No Meds Home Medications and Allergies Home Medications Medication Instructions Recorded Confirmed Type escitalopram oxalate 10 mg tablet 10 mg PO DAILY 06/27/20 06/29/24 History nortriptyline 10 mg capsule 10 mg PO HS 06/27/20 06/29/24 History omeprazole 20 mg capsule,delayed 20 mg PO DAILY 06/27/20 06/29/24 History release potassium chloride 20 mEq 20 meq PO DAILY 06/27/20 06/29/24 History tablet,extended release(part/cryst) rivaroxaban 20 mg tablet (Xarelto) 20 mg PO DAILY 06/27/20 06/29/24 History docusate sodium 100 mg capsule 100 mg PO BID 05/21/24 06/29/24 History insulin aspart U-100 100 unit/mL 10 unit subcut TIDWMEAL 05/21/24 06/29/24 History (3 mL) subcutaneous pen (Novolog FlexPen U-100 Insulin aspart) insulin glargine 100 unit/mL (3 18 unit subcut DAILY 05/21/24 06/29/24 History mL) subcutaneous pen (Basaglar KwikPen U-100 Insulin) levothyroxine 75 mcg tablet 75 mcg PO DAILY 05/21/24 06/29/24 History sacubitril 24 mg-valsartan 26 mg 1 tablet PO BID 05/21/24 06/29/24 History tablet (Entresto) vibegron 75 mg tablet (Gemtesa) 75 mg PO DAILY 05/21/24 06/29/24 History insulin aspart U-100 100 unit/mL See Rx Instructions .Route .COMPLEX 06/29/24 06/29/24 History (3 mL) subcutaneous pen (Novolog FlexPen U-100 Insulin aspart) magnesium oxide 400 mg (241.3 mg 400 mg PO DAILY 06/29/24 06/29/24 History magnesium) tablet metoprolol succinate 50 mg 50 mg PO DAILY 06/29/24 06/29/24 History tablet,extended release 24 hr midodrine 5 mg tablet 2.5 mg PO Q12H PRN Hypotension 06/29/24 06/29/24 History Allergies Allergy/AdvReac Type Severity Reaction Status Date / Time Sulfa (Sulfonamide Allergy Mild RASH Verified 06/28/24 15:44 Antibiotics) Vital Signs Vital Signs - 24 hr 07/01/24 20:00 07/02/24 00:00 07/02/24 04:00 Temperature Pulse Rate 118 H 90 108 H Respiratory Rate Blood Pressure Pulse Oximetry Oxygen Delivery 07/02/24 04:32 07/02/24 07:59 07/02/24 08:09 Temperature 98 F 96.7 F L Pulse Rate 100 100 100 Respiratory Rate 18 16 Blood Pressure 116/65 129/69 Pulse Oximetry 97 95 Oxygen Delivery 07/02/24 08:09 07/02/24 08:00 07/02/24 12:00 Temperature Pulse Rate 113 H 111 H Respiratory Rate Blood Pressure Pulse Oximetry 95 Oxygen Delivery Room Air 07/02/24 14:10 07/02/24 14:24 07/02/24 16:00 Temperature Pulse Rate 111 H Respiratory Rate Blood Pressure Pulse Oximetry Oxygen Delivery Room Air Room Air Results Labs 07/02/24 11:23 07/02/24 11:23 Labs: Short CBC 07/02/24 Range/Units 11:23 WBC 7.2 (4.5-10.0) K/mm3 Hgb 11.5 L (12.0-15.0) g/dL Hct 35.0 L (37.0-47.0) % Plt Count 194 (150-375) k/mm3 BMP 07/02/24 11:23 Sodium 128 L Potassium 3.8 Chloride 90 L Carbon Dioxide 35 H BUN 12 D Creatinine 0.50 L Glucose 237 H Calcium 8.3 L Liver Function 07/02/24 Range/Units 11:23 Total Bilirubin 0.6 (0.2-1.3) mg/dL AST 30 (14-36) U/L ALT 17 (6-35) U/L Alkaline Phosphatase 197 H (38-126) U/L Albumin 2.9 L (3.5-5.1) g/dL
[2024-07-02] MEDS: NORTRIPTYLINE HCL 10 MG CAPSULE PO (19:51)
[2024-07-02 20:28] LABS: Glucose Point of Care 81 mg/dl (65-105)
--- NOTE | 2024-07-02 21:39 | PC.NURSE ---
07/02/242110 Dr. Calvert returned call on positive blood cultures results, released at 1944. Nurse called at 1947 and 2041, she returned call at 2104. She reviewed blood cultures herself and aerobic and anaerobic bottles positive. Dr. Calvert entered orders for blood culture to be redrawn.
[2024-07-03] VITALS (13 sets, daily range): BP systolic 100–133; BP diastolic 60–75; PULSE 81–119; RESP 14–18; TEMP 36.1–36.8; O2SAT 95–96
[2024-07-03] MEDS: HYDROcodone/acetaminophen (*CRX) 5-325 MG TABLET 1 TAB PO ×3 (02:02→21:11)
[2024-07-03] MEDS: ceFAZolin 2 GM/D5W 50 ML 2 GM/50 ML BAG IVPB ×3 (03:47→21:10)
[2024-07-03] MEDS: VANCOMYCIN 1,250 MG/NS 250 ML 1,250 MG/250 ML BAG 166.67 MG IVPB ×2 (04:25→05:59)
[2024-07-03 05:46] LABS: Basophils Absolute Auto 0.1 K/mm3 (0.0-0.1); Basophils Percent Auto 1.4 % (0.2-1.2); Eosinophils Absolute Auto 0.3 K/mm3 (0-0.3); Hematocrit 34.3 % (37.0-47.0); Hemoglobin 11.2 g/dL (12.0-15.0); Immature Granulocyte Absolute 0.31 K/mm3 (0.00-0.031); Immature Granulocyte Percent A 4.7 % (0-0.5); Lymphocytes Absolute Auto 1.47 K/mm3 (0.9-3.2); Lymphocytes Percent Auto 22.3 % (18.3-44.2); Mean Corpuscular HGB Conc 32.7 g/dl (32-36); Mean Corpuscular Hemoglobin 32.9 pg (26-34); Mean Corpuscular Volume 100.9 fl (80-100); Mean Platelet Volume 9.6 fl (7.4-10.4); Monocytes Absolute Auto 0.6 K/mm3 (0.1-0.6); Neutrophils Absolute Auto 3.9 K/mm3 (1.3-6.7); Neutrophils Percent Auto 58.6 % (45.5-73.1); Platelet Count Result 221 k/mm3 (150-375); Red Cell Distribution Width 14.2 % (11.5-14.5); White Blood Count 6.6 K/mm3 (4.5-10.0)
[2024-07-03] MEDS: LEVOTHYROXINE SODIUM 75 MCG TABLET PO (06:00)
[2024-07-03] MEDS: ACETAMINOPHEN 500 MG TABLET 1000 MG PO (06:00)
[2024-07-03 06:04] LABS: Alanine Aminotransferase 16 U/L (6-35); Albumin Level 2.9 g/dL (3.5-5.1); Alkaline Phosphatase 198 U/L (38-126); Anion Gap 4 mmol/L (4-12); Aspartate Amino Transferase 26 U/L (14-36); Bilirubin,Total 0.4 mg/dL (0.2-1.3); Blood Urea Nitrogen 11 mg/dL (7-17); Calcium 8.5 mg/dL (8.4-10.2); Carbon Dioxide 34 mmol/L (22-30); Chloride 93 mmol/L (98-107); Estimated CRCL calculation 107 ml/min; Estimated Glomerular Filt Rate > 60; Glucose 215 mg/dL (65-110); Magnesium 1.7 mg/dL (1.6-2.3); Potassium 3.8 mmol/L (3.4-5.0); Sodium 131 mmol/L (137-145)
[2024-07-03 06:37] LABS: Hypochromasia 1+; Platelet Estimate Adequate (Adequate); Schistocytes None Seen
[2024-07-03 06:46] LABS: Glucose Point of Care 203 mg/dl (65-105)
[2024-07-03 08:20] LABS: Glucose Point of Care 180 mg/dl (65-105)
[2024-07-03] MEDS: DOCUSATE SODIUM 100 MG CAPSULE PO ×2 (08:40→17:14)
[2024-07-03] MEDS: SODIUM CHLORIDE 500 MG TABLET PO ×2 (08:40→17:14)
[2024-07-03] MEDS: ESCITALOPRAM OXALATE 10 MG TABLET PO (08:40)
[2024-07-03] MEDS: SACUBITRIL/VALSARTAN 24-26 MG TABLET 1 TAB PO ×2 (08:40→17:14)
[2024-07-03] MEDS: MAGNESIUM OXIDE 400 MG TABLET PO (08:40)
[2024-07-03] MEDS: POTASSIUM CHLORIDE 20 MEQ ER TABLET PO (08:40)
[2024-07-03] MEDS: INSULIN ASPART (*BKC) 100 UNITS/ML 10 UNITS SUB-Q ×3 (08:40→16:58)
[2024-07-03] MEDS: PANTOPRAZOLE 40 MG TABLET PO (08:41)
[2024-07-03] MEDS: RIVAROXABAN 20 MG TABLET PO (08:41)
[2024-07-03] MEDS: polyethylene glycoL 3350 17 GM POWD.PACK PO (08:42)
[2024-07-03] MEDS: INSULIN GLARGINE (*BKC) 100 UNITS/ML 18 UNITS SUB-Q (08:43)
[2024-07-03] MEDS: METOPROLOL SUCCINATE EXT REL 50 MG TABCR PO (08:44)
[2024-07-03] MEDS: FUROSEMIDE 40 MG TABLET PO (08:44)
[2024-07-03 11:43] LABS: Glucose Point of Care 307 mg/dl (65-105)
[2024-07-03] MEDS: INSULIN ASPART (*BKC) 100 UNITS/ML SUB-Q ×2 (11:46→16:57)
--- NOTE | 2024-07-03 12:42 | PM.IMPN ---
Progress Note: A&P Assessment and Plan (1) Atrial fibrillation with rapid ventricular response: Code(s): I48.91 - Unspecified atrial fibrillation Status: Acute (2) UTI (urinary tract infection): Code(s): N39.0 - Urinary tract infection, site not specified Status: Acute (3) Generalized pain: Code(s): R52 - Pain, unspecified Status: Acute (4) Thrombocytopenia: Code(s): D69.6 - Thrombocytopenia, unspecified Status: Acute (5) Hypothyroidism: Code(s): E03.9 - Hypothyroidism, unspecified Status: Chronic (6) HTN (hypertension): Code(s): I10 - Essential (primary) hypertension Status: Chronic (7) Diabetes: Code(s): E11.9 - Type 2 diabetes mellitus without complications Status: Acute (8) Heart failure: Code(s): I50.9 - Heart failure, unspecified Status: Acute (9) AICD (automatic cardioverter/defibrillator) present: Code(s): Z95.810 - Presence of automatic (implantable) cardiac defibrillator Status: Acute (10) Pacemaker: Code(s): Z95.0 - Presence of cardiac pacemaker Status: Acute (11) Atrial fibrillation: Code(s): I48.91 - Unspecified atrial fibrillation Status: Chronic (12) GERD (gastroesophageal reflux disease): Code(s): K21.9 - Gastro-esophageal reflux disease without esophagitis Status: Chronic Plan 63-year-old female presenting with right flank pain. States that it started earlier today. Associated with foul-smelling urine. States that sometimes it feels like the pain goes down her right leg. No numbness or weakness. No further complaints. on ED evaluation vitals were within normal limit. She was diffusely tender in her abdomen with right CVA tenderness. WBC 6.2 hemoglobin 11.9 platelet 119 sodium was mildly low at 129 creatinine 0.7 blood sugars 192. Lipase normal at 18 troponin was negative less than 0.012 mildly elevated LFTs. Urinalysis with more than 100 RBC WBC 0-[address] abdomen pelvis showed no acute abdominal process no kidney stones sliding hiatal hernia. CT lumbar spine with disc bulge at level of L3-L4 with left posterolateral disc protrusion with narrowing with root compression. Multilevel facet joint disease. Bilateral sacroiliitis. While in the ER her heart rate jumped up and noted to be in AFib with RVR. She does have history of atrial fibrillation and is chronically anticoagulated she was started on diltiazem drip. IV Rocephin was also given for Possible UTI. She is admitted in this setting for further treatment. 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 She has already completed her IV antibiotic course on 06/21/2024 She was recently admitted and discharged on 06/21/2024 after a fall and finding of unsustained ventricular tachycardia chief had a syncopal episode fell forward and hit her head. She has a laceration which has been sutured since then. Her AICD was interrogated and had 5 discharges noted. She was treated with Ancef for her endocarditis. She also had a clot in her left atrial appendage is and cardioversion for atrial fibrillation was canceled. She has been on Xarelto since then. She had been to ER again on 06/26/2024 with abdominal pain vomiting and diarrhea for 3 days and weakness no fever family reports some chills. Laboratory evaluation showed mild WBC 11.5 rest of the labs were unremarkable. CT abdomen and pelvis was done which showed no acute intra-abdominal abnormality. Urinalysis at that time also showed 11-20 RBC 0-5 WBC AFib with RVR on admission started on diltiazem drip. Diltiazem drip tapered off and restarted her metoprolol. Monitor on telemetry. UTI: urine culture positive for e coli. on ceftriaxone. will continue same. Sensitive to ceftriaxone. Renal ultrasound unremarkable. Currently antibiotic switched to Ancef Hypoxia: mild. has underlying sleep apnea. but not tolerating CPAP at home. cxr with congestive changes. Order Lasix IV x1 06/30 . This has resolved now Continue Xarelto hyponatremia worsened down to 123. TSH within normal limits. urine lytes cortisol. Add salt tablets. Sodium level improved Ventricular tachycardia with recent ICD firing Chronic diastolic congestive heart failure some acute component during the hospital stay which was managed with IV Lasix now currently on oral Lasix Status post AICD placement Recent endocarditis Back pain: Still persistent. CT lumbar with diffuse disc bulge L3-L4 with left posterolateral disc protrusion with root compression/bilateral sacroiliitis and lumbar disc disease. Neurosurgery consulted. With her recent concern is development of vertebral osteomyelitis. However CT has been negative. CT repeated again with IV contrast findings were reviewed. Negative for any such findings. Blood culture was obtained and now turning positive for Gram-positive cocci in clusters indicating persistent bacteremia/recurrence of bacteremia and possibility of endocarditis. She has been started back on Ancef along with vancomycin for MRSA coverage until finalization. She for back pain to rule out above which cannot be done here due to her ICD. Discussed with [facility] and is accepted there for further treatment. Awaiting bed placement. Paroxysmal atrial fibrillation GERD Hypothyroidism TSH within normal limits Type 2 diabetes Diffuse disc bulge L3-L4 with left posterolateral disc protrusion with narrowing with root compression/bilateral sacroiliitis, lumbar degenerative disc disease. Will add Flexeril. Back pain still persist. Repeat CT lumbar spine reviewed. Appreciate neurosurgery recommendation Hiatal hernia sliding DVT prophylaxis on Xarelto Code status full code Subjective Date/time seen: 07/03/24 12:42 Interval history: Blood culture came back positive. Back pain is little better today. Working with therapy this morning. Discussed with family. Transfer initiated to [facility]. Accepted at [facility] awaiting bed placement Review of Systems Review of Systems: All systems reviewed & are unremarkable except as noted in HPI and below Exam Narrative: GENERAL: Chronically ill-appearing, not in acute distress HEAD: Normocephalic, atraumatic. EYES: PERRLA and EOMI. NECK: Supple. CHEST: Clear to auscultation. No respiratory distress. HEART: Regular rate and rhythm ABDOMEN: Soft, nontender; no organomegaly EXTREMITIES: No edema cyanosis or clubbing SKIN: Warm, dry, no rash. NEURO: Alert and conversant, somewhat confused BACK: Tender paraspinal area in lumbar area PSYCH: Mildly anxious Objective Data Vital Signs Vital Signs: Vital Signs - 24 hr 07/02/24 14:10 07/02/24 14:24 07/02/24 16:00 Temperature Pulse Rate 104 H Respiratory Rate Blood Pressure Pulse Oximetry Oxygen Delivery Room Air Room Air Fraction of Inspired Oxygen 07/02/24 14:00 07/02/24 20:00 07/02/24 21:46 Temperature 98.2 F 97.5 F L Pulse Rate 99 93 107 H Respiratory Rate 16 18 Blood Pressure 94/72 L 107/80 Pulse Oximetry 96 96 Oxygen Delivery Fraction of Inspired Oxygen 07/03/24 01:07 07/03/24 00:00 07/03/24 04:00 Temperature 98.2 F Pulse Rate 100 112 H 109 H Respiratory Rate 16 Blood Pressure 112/75 Pulse Oximetry 95 Oxygen Delivery Fraction of Inspired Oxygen 07/03/24 05:58 07/03/24 08:44 07/03/24 08:40 Temperature 98.2 F 96.9 F L Pulse Rate 100 119 H 119 H Respiratory Rate 18 18 Blood Pressure 106/62 133/73 Pulse Oximetry 96 96 Oxygen Delivery Fraction of Inspired Oxygen 07/03/24 08:40 07/03/24 08:00 07/03/24 12:02 Temperature Pulse Rate 106 H Respiratory Rate Blood Pressure Pulse Oximetry 96 Oxygen Delivery Room Air Room Air Fraction of Inspired Oxygen 07/03/24 12:00 Temperature Pulse Rate 93 Respiratory Rate Blood Pressure Pulse Oximetry Oxygen Delivery Fraction of Inspired Oxygen Intake/Output Intake/Output: Intake & Output 06/30/24 07/01/24 07/02/24 07/03/24 23:59 23:59 23:59 23:59 Intake Total 8596 838 7874 860 Output Total 1350 Balance 1270 -700 1800 860 Meds/Results Medications: Active Medications Generic Name Dose Route Start Last Admin Trade Name Freq PRN Reason Stop Dose Admin Acetaminophen 1,000 mg 06/30/24 04:04 07/03/24 06:00 Acetaminophen 500 Mg Tablet PO 1,000 mg Q6H PRN Administration Mild Pain (1-3) or Fever Hydrocodone Bitart/Acetaminophen 1 tab 06/30/24 14:17 07/03/24 02:02 Hydrocodone/Acetaminophen (*Crx) 5-325 Mg Tablet PO 1 tab Q6H PRN Administration Pain Rated 4-6 Bisacodyl 10 mg 07/02/24 13:53 Bisacodyl 10 Mg Suppository RECTAL QAM PRN Constipation Cyclobenzaprine HCl 5 mg 07/01/24 12:36 07/02/24 19:51 Cyclobenzaprine Hcl 5 Mg Tablet PO 5 mg Q8H PRN Administration Muscle Spasm Dextrose 12.5 gm 06/29/24 08:56 Dextrose 50% 25 Gm/50 Ml Syringe IV PUSH PRN PRN Hypoglycemia Protocol Docusate Sodium 100 mg 06/29/24 09:00 07/03/24 08:40 Docusate Sodium 100 Mg Capsule PO 100 mg BID GALINA Administration Escitalopram Oxalate 10 mg 06/29/24 09:00 07/03/24 08:40 Escitalopram Oxalate 10 Mg Tablet PO 10 mg DAILY GALINA Administration Furosemide 40 mg 06/29/24 09:00 07/03/24 08:44 Furosemide 40 Mg Tablet PO 40 mg DAILY GALINA Administration Glucagon 1 mg 06/29/24 08:56 Glucagon For Inj 1 Mg Vial IM PRN PRN Hypoglycemia Protocol Glucose 15 gm 06/29/24 08:56 Glucose Oral Gel 15 Gm Of Glucse In 37.5 Gm Tube PO PRN PRN Hypoglycemia Protocol Dextrose 1,000 mls @ 100 mls/hr 06/29/24 08:56 Dextrose 5% 1,000 Ml IVPB PRN PRN Hypoglycemia Protocol Cefazolin Sodium 2 gm in 50 mls @ 100 mls/hr 07/03/24 04:00 07/03/24 04:17 Ancef 2 Gm/D5w 50 Ml IVPB Infused Q8HR GALINA Infusion Vancomycin HCl 1,500 mg in 500 mls @ 250 mls/hr 07/03/24 17:00 Vancomycin 1,500 Mg/Ns 500 Ml IVPB Q12H GALINA Insulin Aspart 2 - 5 units 06/29/24 12:00 07/03/24 11:46 Insulin Aspart (*Bkc) 100 Units/Ml SUB-Q 4 units TIDWM GALINA Administration Protocol Insulin Aspart 10 units 07/01/24 17:00 07/03/24 11:46 Insulin Aspart (*Bkc) 100 Units/Ml SUB-Q 10 units TIDWM GALINA Administration Insulin Glargine 18 units 07/02/24 09:00 07/03/24 08:43 Insulin Glargine (*Bkc) 100 Units/Ml SUB-Q 18 units DAILY GALINA Administration Levothyroxine Sodium 75 mcg 06/29/24 11:00 07/03/24 06:00 Levothyroxine Sodium 75 Mcg Tablet PO 75 mcg DAILY@0630 GALINA Administration Magnesium Oxide 400 mg 06/29/24 09:00 07/03/24 08:40 Magnesium Oxide 400 Mg Tablet PO 400 mg DAILY GALINA Administration Metoprolol Succinate 50 mg 06/29/24 09:00 07/03/24 08:44 Metoprolol Succinate Ext Rel 50 Mg Tabcr PO 50 mg DAILY GALINA Administration Midodrine 2.5 mg 06/29/24 08:49 Midodrine Hcl 2.5 Mg Tablet PO Q12H PRN Hypotension Morphine Sulfate 2 mg 06/29/24 10:40 07/01/24 00:53 Morphine Sulfate (*Crx) 2 Mg/Ml Inj IV PUSH 2 mg Q4H PRN Administration Pain * Home Med * 1 each 07/02/24 09:00 07/03/24 08:41 Vibegron 75 Mg Oral PO 08/01/24 08:59 1 each Tablet DAILY GALINA Administration Nortriptyline HCl 10 mg 06/29/24 21:00 07/02/24 19:51 Nortriptyline Hcl 10 Mg Capsule PO 10 mg HS GALINA Administration Pantoprazole Sodium 40 mg 06/30/24 09:00 07/03/24 08:41 Pantoprazole 40 Mg Tablet PO 40 mg QAM GALINA Administration Polyethylene Glycol 17 gm 07/03/24 09:00 07/03/24 08:42 Polyethylene Glycol 3350 17 Gm Powd.Pack PO 17 gm QAM GALINA Administration Potassium Chloride 20 meq 06/30/24 09:00 07/03/24 08:40 Potassium Chloride 20 Meq Er Tablet PO 20 meq DAILY GALINA Administration Rivaroxaban 20 mg 06/29/24 09:00 07/03/24 08:41 Rivaroxaban 20 Mg Tablet PO 20 mg DAILY GALINA Administration Sacubitril/Valsartan 1 tab 06/29/24 09:00 07/03/24 08:40 Sacubitril/Valsartan 24-26 Mg Tablet PO 1 tab BID GALINA Administration Sodium Chloride 500 mg 06/30/24 09:00 07/03/24 08:40 Sodium Chloride 500 Mg Tablet PO 500 mg BID GLAINA Administration Radiology Results: ITS Impressions Miscellaneous CT Procedure 06/28/24 21:54 IMPRESSION: 1. No acute abdominal process with no evidence of appendicitis, diverticulitis or intestinal obstruction. No kidney stones seen. 2. Sliding hiatus hernia. CT abd pelvis lumbar wo con Ordering provider: Mia Rios MD History: 63 years Female with . R flank pain . Comparison: None. Technique: CT lumbar spine without contrast. Automated exposure control and iterative reconstruction technique were employed. The dose-length product was 1618.46 mGy-cm. FINDINGS: [place]RAE: Normal height and alignment. No subluxation or visible acute fracture. Degenerative changes. DISC SPACES: Well maintained. Multilevel facet joint disease. Diffuse disc bulge at the level of L3-4 with left posterolateral disc protrusion with narrowing with root compression. PARASPINOUS SOFT TISSUES: Normal. Bilateral sacroiliitis. IMPRESSION: No acute osseous abnormality seen. Chest X-Ray 06/30/24 09:51 IMPRESSION: 1. Mild pulmonary edema. 2. Cardiomegaly. Renal Ultrasound 07/01/24 14:40 IMPRESSION: No significant abnormality Cervical Spine CT 07/02/24 12:16 IMPRESSION: No definite acute osseous abnormality cervical spine. Multilevel degenerative disc disease with variable degrees of intervertebral foraminal narrowing. Thoracic/Lumbar Spine CT 07/02/24 12:24 IMPRESSION: 1. Moderate thoracic spondylosis and mild lumbar spondylosis. 2. Mild pulmonary edema. 3. Pulmonary nodules in right upper lobe and left lower lobe, which may be infection. Noncontrast low-dose chest CT is recommended in 1-3 months to exclude malignancy. 4. Embolized wire in a right lower lobe pulmonary artery, unchanged from 09/05/22. Labs Labs: Laboratory Results - last 24 hr 07/02/24 07/02/24 07/03/24 16:51 20:24 05:09 WBC 6.6 RBC 3.40 L Hgb 11.2 L Hct 34.3 L MCV 100.9 H MCH 32.9 MCHC 32.7 RDW 14.2 Plt Count 221 MPV 9.6 Immature Gran % (Auto) 4.7 H Neut % (Auto) 58.6 Lymph % (Auto) 22.3 [place] % (Auto) 9.0 H Eos % (Auto) 4.0 Baso % (Auto) 1.4 H Lymph # (Auto) 1.47 [place] # (Auto) 0.6 Eos # (Auto) 0.3 Baso # (Auto) 0.1 Abs Immat Gran (auto) 0.31 H Absolute Neuts (auto) 3.9 Absolute Nucleated RBC 0.000 Nucleated RBC % 0.0 Platelet Estimate Adequate Hypochromasia 1+ Schistocytes None seen Sodium 131 L Potassium 3.8 Chloride 93 L Carbon Dioxide 34 H Anion Gap 4 BUN 11 Creatinine 0.60 L Estim Creat Clear Calc 107 Estimated GFR > 60 Glucose 215 H POC Capillary Glucose 127 H 81 Calcium 8.5 Magnesium 1.7 Total Bilirubin 0.4 AST 26 ALT 16 Alkaline Phosphatase 198 H Total Protein 6.0 L Albumin 2.9 L 07/03/24 07/03/24 07/03/24 06:42 08:16 11:40 WBC RBC Hgb Hct MCV MCH MCHC RDW Plt Count MPV Immature Gran % (Auto) Neut % (Auto) Lymph % (Auto) [place] % (Auto) Eos % (Auto) Baso % (Auto) Lymph # (Auto) [place] # (Auto) Eos # (Auto) Baso # (Auto) Abs Immat Gran (auto) Absolute Neuts (auto) Absolute Nucleated RBC Nucleated RBC % Platelet Estimate Hypochromasia Schistocytes Sodium Potassium Chloride Carbon Dioxide Anion Gap BUN Creatinine Estim Creat Clear Calc Estimated GFR Glucose POC Capillary Glucose 203 H 180 H 307 H Calcium Magnesium Total Bilirubin AST ALT Alkaline Phosphatase Total Protein Albumin
--- NOTE | 2024-07-03 13:23 | PC.NURSE ---
On 07/03/24, the student, [Veronica Salinas], provided care and completed [facility] documentation on this patient. I have reviewed the student's documentation and agree with the findings.
[2024-07-03 15:24] LABS: Osmolality, Urine 884 mOsm/kg (50-1200)
[2024-07-03 16:44] LABS: Glucose Point of Care 259 mg/dl (65-105)
[2024-07-03] MEDS: VANCOMYCIN 1,500 MG/NS 500 ML 1,500 MG/500 ML BAG 250 MG IVPB (17:14)
[2024-07-03 20:11] LABS: Glucose Point of Care 217 mg/dl (65-105)
[2024-07-03] MEDS: NORTRIPTYLINE HCL 10 MG CAPSULE PO (21:10)
[2024-07-04] VITALS (14 sets, daily range): BP systolic 91–123; BP diastolic 50–64; PULSE 73–106; RESP 16–18; TEMP 36.2–36.8; O2SAT 95–100
[2024-07-04] MEDS: CYCLOBENZAPRINE HCL 5 MG TABLET PO ×2 (01:10→14:28)
[2024-07-04] MEDS: ACETAMINOPHEN 500 MG TABLET 1000 MG PO ×3 (01:10→22:00)
[2024-07-04] MEDS: LEVOTHYROXINE SODIUM 75 MCG TABLET PO (05:02)
[2024-07-04] MEDS: ceFAZolin 2 GM/D5W 50 ML 2 GM/50 ML BAG IVPB ×3 (05:02→22:01)
[2024-07-04] MEDS: HYDROcodone/acetaminophen (*CRX) 5-325 MG TABLET 1 TAB PO ×2 (05:03→11:55)
[2024-07-04] MEDS: VANCOMYCIN 1,500 MG/NS 500 ML 1,500 MG/500 ML BAG 250 MG IVPB (05:07)
[2024-07-04 05:25] LABS: Estimated CRCL calculation 107 ml/min; Estimated Glomerular Filt Rate > 60
[2024-07-04 08:02] LABS: Basophils Absolute Auto 0.1 K/mm3 (0.0-0.1); Eosinophils Absolute Auto 0.3 K/mm3 (0-0.3); Eosinophils Percent Auto 4.1 % (0-4.4); Hematocrit 34.3 % (37.0-47.0); Hemoglobin 11.1 g/dL (12.0-15.0); Immature Granulocyte Absolute 0.27 K/mm3 (0.00-0.031); Immature Granulocyte Percent A 3.8 % (0-0.5); Lymphocytes Absolute Auto 1.59 K/mm3 (0.9-3.2); Lymphocytes Percent Auto 22.3 % (18.3-44.2); Mean Corpuscular HGB Conc 32.4 g/dl (32-36); Mean Corpuscular Hemoglobin 32.8 pg (26-34); Mean Corpuscular Volume 101.5 fl (80-100); Mean Platelet Volume 9.7 fl (7.4-10.4); Monocytes Absolute Auto 0.6 K/mm3 (0.1-0.6); Monocytes Percent Auto 8.1 % (2.6-8.5); Neutrophils Absolute Auto 4.3 K/mm3 (1.3-6.7); Neutrophils Percent Auto 60.7 % (45.5-73.1); Platelet Count Result 243 k/mm3 (150-375); Red Blood Count 3.38 M/mm3 (4.2-5.4); Red Cell Distribution Width 14.3 % (11.5-14.5); White Blood Count 7.1 K/mm3 (4.5-10.0)
[2024-07-04] MEDS: ESCITALOPRAM OXALATE 10 MG TABLET PO (08:14)
[2024-07-04] MEDS: RIVAROXABAN 20 MG TABLET PO (08:14)
[2024-07-04] MEDS: MAGNESIUM OXIDE 400 MG TABLET PO (08:14)
[2024-07-04] MEDS: METOPROLOL SUCCINATE EXT REL 50 MG TABCR PO (08:14)
[2024-07-04] MEDS: DOCUSATE SODIUM 100 MG CAPSULE PO ×2 (08:14→17:22)
[2024-07-04] MEDS: SACUBITRIL/VALSARTAN 24-26 MG TABLET 1 TAB PO ×2 (08:14→17:22)
[2024-07-04] MEDS: FUROSEMIDE 40 MG TABLET PO (08:14)
[2024-07-04] MEDS: POTASSIUM CHLORIDE 20 MEQ ER TABLET PO (08:15)
[2024-07-04] MEDS: PANTOPRAZOLE 40 MG TABLET PO (08:15)
[2024-07-04] MEDS: SODIUM CHLORIDE 500 MG TABLET PO ×2 (08:15→17:22)
[2024-07-04] MEDS: polyethylene glycoL 3350 17 GM POWD.PACK PO (08:15)
[2024-07-04 08:42] LABS: Glucose Point of Care 194 mg/dl (65-105)
[2024-07-04] MEDS: INSULIN GLARGINE (*BKC) 100 UNITS/ML 18 UNITS SUB-Q (09:04)
[2024-07-04] MEDS: INSULIN ASPART (*BKC) 100 UNITS/ML 10 UNITS SUB-Q ×2 (09:05→12:05)
--- NOTE | 2024-07-04 09:39 | PCNFU ---
Nutrition Follow-Up Complete: Moderate protein calorie malnutrition related to chronic illness, recent hospitalization as evidenced by intakes <75% needs >1 month; weight loss -27 lbs, 10%/1 month. Adequate PO intake at least 75% meals and supplements - Goal being met. Continue with same goal Goal: Pt current nutrition is Diabetic consistent carb diet. Gluerna BID for additional 220 kcal and 10 g protein each. Nutrition recommendation: No new nutrition recommendations. Continue with current nutrition care plan. Agree with orders Last recorded weight is 118 kg. Bowel Motility: +1 BM 07/03/24 Labs Reviewed: Hgb 11.1, Hct 34.2, all other pertinent labs WNL Meds Noted: Lantus, novolog, Lasix, synthroid, protonix, Kcl, vancomycin Skin: No skin issues Additional Notes: Intakes are good, 100% meals. Awaiting bed transfer to [place], Continue current nutrition care plan. Monitoring intakes, weights, labs, supplement tolerance, plan of care Follow up in 5 days
[2024-07-04 10:03] LABS: Alanine Aminotransferase 19 U/L (6-35); Alkaline Phosphatase 198 U/L (38-126); Anion Gap 3 mmol/L (4-12); Aspartate Amino Transferase 30 U/L (14-36); Bilirubin,Total 0.5 mg/dL (0.2-1.3); Blood Urea Nitrogen 12 mg/dL (7-17); Calcium 8.6 mg/dL (8.4-10.2); Carbon Dioxide 33 mmol/L (22-30); Chloride 96 mmol/L (98-107); Estimated CRCL calculation 127 ml/min; Estimated Glomerular Filt Rate > 60; Glucose 176 mg/dL (65-110); Magnesium 1.8 mg/dL (1.6-2.3); Phosphorus 3.7 mg/dL (2.5-4.5); Potassium 4.3 mmol/L (3.4-5.0); Sodium 132 mmol/L (137-145)
[2024-07-04 11:08] LABS: Vitamin B12 > 1000.0 pg/mL (239-931)
[2024-07-04 12:03] LABS: Glucose Point of Care 380 mg/dl (65-105)
[2024-07-04] MEDS: INSULIN ASPART (*BKC) 100 UNITS/ML SUB-Q (12:05)
[2024-07-04 17:07] LABS: Glucose Point of Care 83 mg/dl (65-105)
--- NOTE | 2024-07-04 17:13 | P.PNIM_ITS ---
Progress Note: A&P Assessment and Plan (1) Atrial fibrillation with rapid ventricular response: Code(s): I48.91 - Unspecified atrial fibrillation Status: Acute (2) UTI (urinary tract infection): Code(s): N39.0 - Urinary tract infection, site not specified Status: Acute (3) Generalized pain: Code(s): R52 - Pain, unspecified Status: Acute (4) Thrombocytopenia: Code(s): D69.6 - Thrombocytopenia, unspecified Status: Acute (5) Hypothyroidism: Code(s): E03.9 - Hypothyroidism, unspecified Status: Chronic (6) HTN (hypertension): Code(s): I10 - Essential (primary) hypertension Status: Chronic (7) Diabetes: Code(s): E11.9 - Type 2 diabetes mellitus without complications Status: Acute (8) Heart failure: Code(s): I50.9 - Heart failure, unspecified Status: Acute (9) AICD (automatic cardioverter/defibrillator) present: Code(s): Z95.810 - Presence of automatic (implantable) cardiac defibrillator Status: Acute (10) Pacemaker: Code(s): Z95.0 - Presence of cardiac pacemaker Status: Acute (11) Atrial fibrillation: Code(s): I48.91 - Unspecified atrial fibrillation Status: Chronic (12) GERD (gastroesophageal reflux disease): Code(s): K21.9 - Gastro-esophageal reflux disease without esophagitis Status: Chronic (13) Back pain: Code(s): M54.9 - Dorsalgia, unspecified Status: Acute (14) Bacteremia: Code(s): R78.81 - Bacteremia Status: Acute Plan 63-year-old female presenting with right flank pain. States that it started earlier today. Associated with foul-smelling urine. States that sometimes it feels like the pain goes down her right leg. No numbness or weakness. No further complaints. on ED evaluation vitals were within normal limit. She was diffusely tender in her abdomen with right CVA tenderness. WBC 6.2 hemoglobin 11.9 platelet 119 sodium was mildly low at 129 creatinine 0.7 blood sugars 192. Lipase normal at 18 troponin was negative less than 0.012 mildly elevated LFTs. Urinalysis with more than 100 RBC WBC 0-[address] abdomen pelvis showed no acute abdominal process no kidney stones sliding hiatal hernia. CT lumbar spine with disc bulge at level of L3-L4 with left posterolateral disc protrusion with narrowing with root compression. Multilevel facet joint disease. Bilateral sacroiliitis. While in the ER her heart rate jumped up and noted to be in AFib with RVR. She does have history of atrial fibrillation and is chronically anticoagulated she was started on diltiazem drip. IV Rocephin was also given for Possible UTI. She is admitted in this setting for further treatment. 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 She has already completed her IV antibiotic course on 06/21/2024 She was recently admitted and discharged on 06/21/2024 after a fall and finding of unsustained ventricular tachycardia chief had a syncopal episode fell forward and hit her head. She has a laceration which has been sutured since then. Her AICD was interrogated and had 5 discharges noted. She was treated with Ancef for her endocarditis. She also had a clot in her left atrial appendage is and cardioversion for atrial fibrillation was canceled. She has been on Xarelto since then. She had been to ER again on 06/26/2024 with abdominal pain vomiting and diarrhea for 3 days and weakness no fever family reports some chills. Laboratory evaluation showed mild WBC 11.5 rest of the labs were unremarkable. CT abdomen and pelvis was done which showed no acute intra-abdominal abnormality. Urinalysis at that time also showed 11-20 RBC 0-5 WBC AFib with RVR on admission started on diltiazem drip. Diltiazem drip tapered off and restarted her metoprolol. Monitor on telemetry. UTI: urine culture positive for e coli. on ceftriaxone. will continue same. Sensitive to ceftriaxone. Renal ultrasound unremarkable. Currently antibiotic switched to Ancef Hypoxia: mild. has underlying sleep apnea. but not tolerating CPAP at home. cxr with congestive changes. Order Lasix IV x1 06/30 . This has resolved now Continue Xarelto hyponatremia worsened down to 123. TSH within normal limits. urine lytes cortisol. Add salt tablets. Sodium level improved Ventricular tachycardia with recent ICD firing Chronic diastolic congestive heart failure some acute component during the h ospital stay which was managed with IV Lasix now currently on oral Lasix Status post AICD placement Recent endocarditis Back pain: Still persistent. CT lumbar with diffuse disc bulge L3-L4 with left posterolateral disc protrusion with root compression/bilateral sacroiliitis and lumbar disc disease. Neurosurgery consulted. With her recent concern is development of vertebral osteomyelitis. However CT has been negative. CT repeated again with IV contrast findings were reviewed. Negative for any such findings. Blood culture was obtained and now turning positive for Gram-positive cocci in clusters indicating persistent bacteremia/recurrence of bacteremia and possibility of endocarditis. She has been started back on Ancef along with vancomycin for MRSA coverage until finalization. She for back pain to rule out above which cannot be done here due to her ICD. Discussed with [place] and is accepted there for further treatment. Awaiting bed placement. Paroxysmal atrial fibrillation GERD Hypothyroidism TSH within normal limits Type 2 diabetes Diffuse disc bulge L3-L4 with left posterolateral disc protrusion with narrowing with root compression/bilateral sacroiliitis, lumbar degenerative disc disease. Flexeril. Back pain better. Repeat CT lumbar spine reviewed. Appreciate neurosurgery recommendation Hiatal hernia sliding 07/04/24 -- Patient feels better. UCx (06/28) growing EColi sensitive to Ancef. BCx from 3/4 bottles (only 1 aerobic bottle) growing MSSA. She was on Ancf and Vancomycin but will stop Vanco. Repeat BCx remain negative. WBC normal on admission and remains normal. CRP 7.1 -> 5 today. Back pain is better. Unable to get MRI here due to AICD/PM. Sodium low but better. Surface Echo showing no visible infectious vegetations although suboptimal. Waiting for transfer to [place] for ID consult for possible recurrent endocarditis and/or osteomyelitis/discitis. No CHANCE since she most likely will need 6 weeks of treatment. DVT prophylaxis on Xarelto Code status full code Subjective Date/time seen: 07/04/24 17:13 Interval history: 63yo female with AFib, DM, HTN and recent hx of endocarditis here for flank pain. Assuming care. Chart reviewed. Back pain better. No CP or SOB. +MAYS. Walking with help in the room. No n/v. Eating okay Exam Narrative: AF 97.1 88 16 100%ra Gen - NARD Chest - CTA bilaterally, nml RR CV - irregularly irregular; Tele showing AFib with controlled rate Abd - Soft, obese, NT Ext - No pedal edema Psych - Nml mood and affect Skin - Warm and dry Objective Data Vital Signs Vital Signs: Vital Signs - 24 hr 07/03/24 20:00 07/03/24 20:00 07/03/24 20:52 Temperature 97.4 F L Pulse Rate 81 91 Respiratory Rate 18 Blood Pressure 100/60 Pulse Oximetry 96 Oxygen Delivery Room Air Fraction of Inspired Oxygen 07/04/24 00:00 07/04/24 04:00 07/04/24 05:38 Temperature 97.6 F Pulse Rate 87 87 94 Respiratory Rate 18 Blood Pressure 109/64 Pulse Oximetry 95 Oxygen Delivery Fraction of Inspired Oxygen 07/04/24 07:39 07/04/24 08:11 07/04/24 08:14 Temperature 97.5 F L Pulse Rate 99 99 Respiratory Rate 18 Blood Pressure 121/64 Pulse Oximetry 95 97 Oxygen Delivery Room Air Fraction of Inspired Oxygen 21 07/04/24 08:00 07/04/24 08:14 07/04/24 12:00 Temperature Pulse Rate 106 H 101 H Respiratory Rate Blood Pressure Pulse Oximetry Oxygen Delivery Room Air Fraction of Inspired Oxygen 07/04/24 16:27 Temperature 97.1 F L Pulse Rate 88 Respiratory Rate 16 Blood Pressure 123/60 Pulse Oximetry 100 Oxygen Delivery Fraction of Inspired Oxygen Intake/Output Intake/Output: Intake & Output 07/01/24 07/02/24 07/03/24 07/04/24 23:59 23:59 23:59 23:59 Intake Total 650 1800 2550 1470 Output Total 1350 200 Balance -700 1800 2350 1470 Meds/Results Medications: Active Medications Generic Name Dose Route Start Last Admin Trade Name Freq PRN Reason Stop Dose Admin Acetaminophen 1,000 mg 06/30/24 04:04 07/04/24 09:11 Acetaminophen 500 Mg Tablet PO 1,000 mg Q6H PRN Administration Mild Pain (1-3) or Fever Hydrocodone Bitart/Acetaminophen 1 tab 06/30/24 14:17 07/04/24 11:55 Hydrocodone/Acetaminophen (*Crx) 5-325 Mg Tablet PO 1 tab Q6H PRN Administration Pain Rated 4-6 Bisacodyl 10 mg 07/02/24 13:53 Bisacodyl 10 Mg Suppository RECTAL QAM PRN Constipation Cyclobenzaprine HCl 5 mg 07/01/24 12:36 07/04/24 14:28 Cyclobenzaprine Hcl 5 Mg Tablet PO 5 mg Q8H PRN Administration Muscle Spasm Dextrose 12.5 gm 06/29/24 08:56 Dextrose 50% 25 Gm/50 Ml Syringe IV PUSH PRN PRN Hypoglycemia Protocol Docusate Sodium 100 mg 06/29/24 09:00 07/04/24 08:14 Docusate Sodium 100 Mg Capsule PO 100 mg BID GALINA Administration Escitalopram Oxalate 10 mg 06/29/24 09:00 07/04/24 08:14 Escitalopram Oxalate 10 Mg Tablet PO 10 mg DAILY GALINA Administration Furosemide 40 mg 06/29/24 09:00 07/04/24 08:14 Furosemide 40 Mg Tablet PO 40 mg DAILY GALINA Administration Glucagon 1 mg 06/29/24 08:56 Glucagon For Inj 1 Mg Vial IM PRN PRN Hypoglycemia Protocol Glucose 15 gm 06/29/24 08:56 Glucose Oral Gel 15 Gm Of Glucse In 37.5 Gm Tube PO PRN PRN Hypoglycemia Protocol Dextrose 1,000 mls @ 100 mls/hr 06/29/24 08:56 Dextrose 5% 1,000 Ml IVPB PRN PRN Hypoglycemia Protocol Cefazolin Sodium 2 gm in 50 mls @ 100 mls/hr 07/03/24 04:00 07/04/24 13:48 Ancef 2 Gm/D5w 50 Ml IVPB 100 mls/hr Q8HR GALINA Administration Insulin Aspart 2 - 5 units 06/29/24 12:00 07/04/24 12:05 Insulin Aspart (*Bkc) 100 Units/Ml SUB-Q 5 units TIDWM GALINA Administration Protocol Insulin Aspart 10 units 07/01/24 17:00 07/04/24 12:05 Insulin Aspart (*Bkc) 100 Units/Ml SUB-Q 10 units TIDWM GALINA Administration Insulin Glargine 18 units 07/02/24 09:00 07/04/24 09:04 Insulin Glargine (*Bkc) 100 Units/Ml SUB-Q 18 units DAILY GALINA Administration Levothyroxine Sodium 75 mcg 06/29/24 11:00 07/04/24 05:02 Levothyroxine Sodium 75 Mcg Tablet PO 75 mcg DAILY@0630 GALINA Administration Magnesium Oxide 400 mg 06/29/24 09:00 07/04/24 08:14 Magnesium Oxide 400 Mg Tablet PO 400 mg DAILY GALINA Administration Metoprolol Succinate 50 mg 06/29/24 09:00 07/04/24 08:14 Metoprolol Succinate Ext Rel 50 Mg Tabcr PO 50 mg DAILY GALINA Administration Midodrine 2.5 mg 06/29/24 08:49 Midodrine Hcl 2.5 Mg Tablet PO Q12H PRN Hypotension Morphine Sulfate 2 mg 06/29/24 10:40 07/01/24 00:53 Morphine Sulfate (*Crx) 2 Mg/Ml Inj IV PUSH 2 mg Q4H PRN Administration Pain * Home Med * 1 each 07/02/24 09:00 07/04/24 08:15 Vibegron 75 Mg Oral PO 08/01/24 08:59 1 each Tablet DAILY GALINA Administration Nortriptyline HCl 10 mg 06/29/24 21:00 07/03/24 21:10 Nortriptyline Hcl 10 Mg Capsule PO 10 mg HS GALINA Administration Pantoprazole Sodium 40 mg 06/30/24 09:00 07/04/24 08:15 Pantoprazole 40 Mg Tablet PO 40 mg QAM GALINA Administration Polyethylene Glycol 17 gm 07/03/24 09:00 07/04/24 08:15 Polyethylene Glycol 3350 17 Gm Powd.Pack PO 17 gm QAM GALINA Administration Potassium Chloride 20 meq 06/30/24 09:00 07/04/24 08:15 Potassium Chloride 20 Meq Er Tablet PO 20 meq DAILY GALINA Administration Rivaroxaban 20 mg 06/29/24 09:00 07/04/24 08:14 Rivaroxaban 20 Mg Tablet PO 20 mg DAILY GALINA Administration Sacubitril/Valsartan 1 tab 06/29/24 09:00 07/04/24 08:14 Sacubitril/Valsartan 24-26 Mg Tablet PO 1 tab BID GALINA Administration Sodium Chloride 500 mg 06/30/24 09:00 07/04/24 08:15 Sodium Chloride 500 Mg Tablet PO 500 mg BID GALINA Administration Radiology Results: ITS Impressions Miscellaneous CT Procedure 06/28/24 21:54 IMPRESSION: 1. No acute abdominal process with no evidence of appendicitis, diverticulitis or intestinal obstruction. No kidney stones seen. 2. Sliding hiatus hernia. CT abd pelvis lumbar wo con Ordering provider: Mia Rios MD History: 63 years Female with . R flank pain . Comparison: None. Technique: CT lumbar spine without contrast. Automated exposure control and iterative reconstruction technique were employed. The dose-length product was 1618.46 mGy-cm. FINDINGS: [place]RAE: Normal height and alignment. No subluxation or visible acute fracture. Degenerative changes. DISC SPACES: Well maintained. Multilevel facet joint disease. Diffuse disc bulge at the level of L3-4 with left posterolateral disc protrusion with narrowing with root compression. PARASPINOUS SOFT TISSUES: Normal. Bilateral sacroiliitis. IMPRESSION: No acute osseous abnormality seen. Chest X-Ray 06/30/24 09:51 IMPRESSION: 1. Mild pulmonary edema. 2. Cardiomegaly. Renal Ultrasound 07/01/24 14:40 IMPRESSION: No significant abnormality Cervical Spine CT 07/02/24 12:16 IMPRESSION: No definite acute osseous abnormality cervical spine. Multilevel degenerative disc disease with variable degrees of intervertebral foraminal narrowing. Thoracic/Lumbar Spine CT 07/02/24 12:24 IMPRESSION: 1. Moderate thoracic spondylosis and mild lumbar spondylosis. 2. Mild pulmonary edema. 3. Pulmonary nodules in right upper lobe and left lower lobe, which may be infection. Noncontrast low-dose chest CT is recommended in 1-3 months to exclude malignancy. 4. Embolized wire in a right lower lobe pulmonary artery, unchanged from 09/05/22. Labs Labs: Laboratory Results - last 24 hr 07/03/24 07/04/24 07/04/24 19:57 04:56 04:56 WBC 7.1 RBC 3.38 L Hgb 11.1 L Hct 34.3 L MCV 101.5 H MCH 32.8 MCHC 32.4 RDW 14.3 Plt Count 243 MPV 9.7 Immature Gran % (Auto) 3.8 H Neut % (Auto) 60.7 Lymph % (Auto) 22.3 [place] % (Auto) 8.1 Eos % (Auto) 4.1 Baso % (Auto) 1.0 Lymph # (Auto) 1.59 [place] # (Auto) 0.6 Eos # (Auto) 0.3 Baso # (Auto) 0.1 Abs Immat Gran (auto) 0.27 H Absolute Neuts (auto) 4.3 Absolute Nucleated RBC 0.000 Nucleated RBC % 0.0 Sodium 132 L Potassium 4.3 Chloride 96 L Carbon Dioxide 33 H Anion Gap 3 L BUN 12 Creatinine 0.60 L 0.50 L Estim Creat Clear Calc 107 Estimated GFR Glucose POC Capillary Glucose 217 H Calcium Phosphorus Magnesium Total Bilirubin AST ALT Alkaline Phosphatase C-Reactive Protein Total Protein Albumin Vitamin B12 Folate 07/04/24 07/04/24 07/04/24 04:56 04:56 08:35 WBC RBC Hgb Hct MCV MCH MCHC RDW Plt Count MPV Immature Gran % (Auto) Neut % (Auto) Lymph % (Auto) [place] % (Auto) Eos % (Auto) Baso % (Auto) Lymph # (Auto) [place] # (Auto) Eos # (Auto) Baso # (Auto) Abs Immat Gran (auto) Absolute Neuts (auto) Absolute Nucleated RBC Nucleated RBC % Sodium Potassium Chloride Carbon Dioxide Anion Gap BUN Creatinine Estim Creat Clear Calc 127 Estimated GFR > 60 > 60 Glucose 176 H POC Capillary Glucose 194 H Calcium 8.6 Phosphorus 3.7 Magnesium 1.8 Total Bilirubin 0.5 AST 30 ALT 19 Alkaline Phosphatase 198 H C-Reactive Protein 5.0 H Total Protein 7.0 Albumin 3.0 L Vitamin B12 > 1000.0 H Folate 12.0 07/04/24 07/04/24 11:58 17:04 WBC RBC Hgb Hct MCV MCH MCHC RDW Plt Count MPV Immature Gran % (Auto) Neut % (Auto) Lymph % (Auto) [place] % (Auto) Eos % (Auto) Baso % (Auto) Lymph # (Auto) [place] # (Auto) Eos # (Auto) Baso # (Auto) Abs Immat Gran (auto) Absolute Neuts (auto) Absolute Nucleated RBC Nucleated RBC % Sodium Potassium Chloride Carbon Dioxide Anion Gap BUN Creatinine Estim Creat Clear Calc Estimated GFR Glucose POC Capillary Glucose 380 H 83 Calcium Phosphorus Magnesium Total Bilirubin AST ALT Alkaline Phosphatase C-Reactive Protein Total Protein Albumin Vitamin B12 Folate
[2024-07-04] MEDS: NORTRIPTYLINE HCL 10 MG CAPSULE PO (22:01)
[2024-07-04 22:33] LABS: Glucose Point of Care 153 mg/dl (65-105)
[2024-07-05] VITALS (13 sets, daily range): BP systolic 108–129; BP diastolic 58–62; PULSE 68–108; RESP 18–26; TEMP 36.5–36.7; O2SAT 93–97
[2024-07-05] MEDS: LEVOTHYROXINE SODIUM 75 MCG TABLET PO (05:46)
[2024-07-05] MEDS: ceFAZolin 2 GM/D5W 50 ML 2 GM/50 ML BAG IVPB ×3 (05:47→21:28)
[2024-07-05 08:03] LABS: Glucose Point of Care 190 mg/dl (65-105)
[2024-07-05] MEDS: SACUBITRIL/VALSARTAN 24-26 MG TABLET 1 TAB PO ×2 (10:00→17:49)
[2024-07-05] MEDS: POTASSIUM CHLORIDE 20 MEQ ER TABLET PO (10:00)
[2024-07-05] MEDS: PANTOPRAZOLE 40 MG TABLET PO (10:00)
[2024-07-05] MEDS: SODIUM CHLORIDE 500 MG TABLET PO ×2 (10:00→17:50)
[2024-07-05] MEDS: ESCITALOPRAM OXALATE 10 MG TABLET PO (10:00)
[2024-07-05] MEDS: RIVAROXABAN 20 MG TABLET PO (10:00)
[2024-07-05] MEDS: DOCUSATE SODIUM 100 MG CAPSULE PO ×2 (10:01→17:50)
[2024-07-05] MEDS: FUROSEMIDE 40 MG TABLET PO (10:01)
[2024-07-05] MEDS: METOPROLOL SUCCINATE EXT REL 50 MG TABCR PO (10:01)
[2024-07-05] MEDS: HYDROcodone/acetaminophen (*CRX) 5-325 MG TABLET 1 TAB PO (10:01)
[2024-07-05] MEDS: MAGNESIUM OXIDE 400 MG TABLET PO (10:01)
[2024-07-05] MEDS: polyethylene glycoL 3350 17 GM POWD.PACK PO (10:02)
[2024-07-05] MEDS: INSULIN GLARGINE (*BKC) 100 UNITS/ML 18 UNITS SUB-Q (10:03)
[2024-07-05] MEDS: INSULIN ASPART (*BKC) 100 UNITS/ML 10 UNITS SUB-Q ×3 (10:04→17:50)
[2024-07-05 12:02] LABS: Glucose Point of Care 306 mg/dl (65-105)
[2024-07-05] MEDS: INSULIN ASPART (*BKC) 100 UNITS/ML SUB-Q (12:28)
[2024-07-05] MEDS: CYCLOBENZAPRINE HCL 5 MG TABLET PO (12:32)
[2024-07-05 17:31] LABS: Glucose Point of Care 168 mg/dl (65-105)
--- NOTE | 2024-07-05 18:12 | PM.IMPN ---
Progress Note: A&P Assessment and Plan (1) Bacteremia: Code(s): R78.81 - Bacteremia Status: Acute (2) Back pain: Code(s): M54.9 - Dorsalgia, unspecified Status: Acute (3) Atrial fibrillation with rapid ventricular response: Code(s): I48.91 - Unspecified atrial fibrillation Status: Acute (4) UTI (urinary tract infection): Code(s): N39.0 - Urinary tract infection, site not specified Status: Acute (5) Thrombocytopenia: Code(s): D69.6 - Thrombocytopenia, unspecified Status: Acute (6) HTN (hypertension): Code(s): I10 - Essential (primary) hypertension Status: Chronic (7) Diabetes: Code(s): E11.9 - Type 2 diabetes mellitus without complications Status: Acute (8) Heart failure: Code(s): I50.9 - Heart failure, unspecified Status: Acute (9) AICD (automatic cardioverter/defibrillator) present: Code(s): Z95.810 - Presence of automatic (implantable) cardiac defibrillator Status: Acute (10) Pacemaker: Code(s): Z95.0 - Presence of cardiac pacemaker Status: Acute Plan 63-year-old female presenting with right flank pain, weakness, abdominal pain, n/v and diarrhea for 3 days. 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 She has already completed her IV Ancef course on 06/21/2024. She was recently admitted and discharged on 06/21/2024 after a fall and finding of nonsustained ventricular tachycardia. She had a syncopal episode, fell forward and hit her head. She has a laceration which has been sutured. Since then, her AICD was interrogated and had 5 discharges noted. She also had a clot in her left atrial appendage and cardioversion for atrial fibrillation was canceled. She has been on Xarelto since then. CT abdomen and pelvis was done which showed no acute intra-abdominal abnormality. AFib with RVR on admission and started on diltiazem drip. Diltiazem drip tapered off and restarted her metoprolol. Xarelto continued. Heart rate stable on tele. Urine culture positive for EColi that was relatively pansensitive. She completed treatment for this. She was on ceftriaxone but BCx returned positive for MSSA. She was on Vancomycin and Ancef but narrowed to Ancef once sensitivities were known. WBC normal. CRP trending down. Renal ultrasound unremarkable. Mild hypoxia noted and felt related to her underlying sleep apnea. She does not tolerate CPAP at home. CXR with congestive changes so Lasix IV x1 06/30 ordered and felt related to the AFib/RVR. This has resolved. Echo 06/29 showing EF 45-50% with mild LV enlargement and mildly reduced systolic fxn. No visible infectious vegetation although suboptimal visualization of the tricuspid and pulmonic valve. Hyponatremia worsened down to 123. TSH and Cortisol within normal limits. Urine Na 60 with FENa 0.5%. Salt tablets added. Sodium up to 132. She was started on oral lasix. Patient with persistent back pain. CT lumbar with diffuse disc bulge L3-L4 with left posterolateral disc protrusion with root compression/bilateral sacroiliitis and lumbar disc disease. Neurosurgery consulted. Concern for the development of vertebral osteomyelitis. CT repeated again with IV contrast but negative for any such findings. Repeat BCx NGTD. Lumbar MRI to rule out diskitis/osteomyeltis cannot be done here due to her ICD. Discussed with [place] and they have accepted her. Waiting for transfer to [place] for ID consult for possible recurrent endocarditis and/or osteomyelitis/discitis. No CHANCE since she most likely will need 6 weeks of treatment. Continue PT/OT. Repeat labs in the morning. DVT prophylaxis on Xarelto Code status full code Subjective Date/time seen: 07/05/24 18:12 Interval history: 63yo female with AFib, DM, HTN and recent hx of endocarditis here for flank pain. Patient complains of low back pain. No SOB or CP. Eating okay. No n/v. no diarrhea. Exam Narrative: AF 97.7 112/58 102 26 93%ra Gen - NARD sitting at the side of the bed Chest - CTA bilaterally, nml RR CV - irregularly irregular; Tele showing AFib with controlled rate Abd - Soft, obese, NT Back - spinal and perispinal lumber tenderness mostly right sided Ext - No pedal edema Psych - Nml mood and affect Skin - Warm and dry Objective Data Vital Signs Vital Signs: Vital Signs - 24 hr 07/04/24 19:46 07/04/24 20:00 07/04/24 20:21 Temperature 98.2 F Pulse Rate 88 73 82 Respiratory Rate 16 16 Blood Pressure 91/50 L Pulse Oximetry 100 96 Oxygen Delivery Room Air Fraction of Inspired Oxygen 21 07/04/24 21:33 07/05/24 00:00 07/05/24 04:00 Temperature Pulse Rate 105 H 107 H Respiratory Rate Blood Pressure Pulse Oximetry 96 Oxygen Delivery Room Air Fraction of Inspired Oxygen 07/05/24 05:48 07/05/24 09:59 07/05/24 10:01 Temperature 98.1 F Pulse Rate 82 108 H 101 H Respiratory Rate 18 Blood Pressure 110/62 129/62 Pulse Oximetry 95 Oxygen Delivery Fraction of Inspired Oxygen 07/05/24 10:00 07/05/24 08:00 07/05/24 12:00 Temperature Pulse Rate 91 100 Respiratory Rate Blood Pressure Pulse Oximetry Oxygen Delivery Room Air Fraction of Inspired Oxygen 07/05/24 14:00 07/05/24 17:48 Temperature 97.7 F Pulse Rate 83 102 H Respiratory Rate 26 H Blood Pressure 110/58 L 112/58 L Pulse Oximetry 93 Oxygen Delivery Fraction of Inspired Oxygen Intake/Output Intake/Output: Intake & Output 07/02/24 07/03/24 07/04/24 07/05/24 23:59 23:59 23:59 23:59 Intake Total 1800 2550 1860 1030 Output Total 200 Balance 1800 2350 1860 1030 Meds/Results Medications: Active Medications Generic Name Dose Route Start Last Admin Trade Name Freq PRN Reason Stop Dose Admin Acetaminophen 1,000 mg 06/30/24 04:04 07/04/24 22:00 Acetaminophen 500 Mg Tablet PO 1,000 mg Q6H PRN Administration Mild Pain (1-3) or Fever Hydrocodone Bitart/Acetaminophen 1 tab 06/30/24 14:17 07/05/24 10:01 Hydrocodone/Acetaminophen (*Crx) 5-325 Mg Tablet PO 1 tab Q6H PRN Administration Pain Rated 4-6 Bisacodyl 10 mg 07/02/24 13:53 Bisacodyl 10 Mg Suppository RECTAL QAM PRN Constipation Cyclobenzaprine HCl 5 mg 07/01/24 12:36 07/05/24 12:32 Cyclobenzaprine Hcl 5 Mg Tablet PO 5 mg Q8H PRN Administration Muscle Spasm Dextrose 12.5 gm 06/29/24 08:56 Dextrose 50% 25 Gm/50 Ml Syringe IV PUSH PRN PRN Hypoglycemia Protocol Docusate Sodium 100 mg 06/29/24 09:00 07/05/24 17:50 Docusate Sodium 100 Mg Capsule PO 100 mg BID GALINA Administration Escitalopram Oxalate 10 mg 06/29/24 09:00 07/05/24 10:00 Escitalopram Oxalate 10 Mg Tablet PO 10 mg DAILY GALINA Administration Furosemide 40 mg 06/29/24 09:00 07/05/24 10:01 Furosemide 40 Mg Tablet PO 40 mg DAILY GALINA Administration Glucagon 1 mg 06/29/24 08:56 Glucagon For Inj 1 Mg Vial IM PRN PRN Hypoglycemia Protocol Glucose 15 gm 06/29/24 08:56 Glucose Oral Gel 15 Gm Of Glucse In 37.5 Gm Tube PO PRN PRN Hypoglycemia Protocol Dextrose 1,000 mls @ 100 mls/hr 06/29/24 08:56 Dextrose 5% 1,000 Ml IVPB PRN PRN Hypoglycemia Protocol Cefazolin Sodium 2 gm in 50 mls @ 100 mls/hr 07/03/24 04:00 07/05/24 14:18 Ancef 2 Gm/D5w 50 Ml IVPB 100 mls/hr Q8HR GALINA Administration Insulin Aspart 2 - 5 units 06/29/24 12:00 07/05/24 17:43 Insulin Aspart (*Bkc) 100 Units/Ml SUB-Q Not Given TIDWM [facility] Protocol Insulin Aspart 10 units 07/01/24 17:00 07/05/24 17:50 Insulin Aspart (*Bkc) 100 Units/Ml SUB-Q 10 units TIDWM GALINA Administration Insulin Glargine 18 units 07/02/24 09:00 07/05/24 10:03 Insulin Glargine (*Bkc) 100 Units/Ml SUB-Q 18 units DAILY GALINA Administration Levothyroxine Sodium 75 mcg 06/29/24 11:00 07/05/24 05:46 Levothyroxine Sodium 75 Mcg Tablet PO 75 mcg DAILY@0630 GALINA Administration Magnesium Oxide 400 mg 06/29/24 09:00 07/05/24 10:01 Magnesium Oxide 400 Mg Tablet PO 400 mg DAILY GALINA Administration Metoprolol Succinate 50 mg 06/29/24 09:00 07/05/24 10:01 Metoprolol Succinate Ext Rel 50 Mg Tabcr PO 50 mg DAILY GALINA Administration Midodrine 2.5 mg 06/29/24 08:49 Midodrine Hcl 2.5 Mg Tablet PO Q12H PRN Hypotension Morphine Sulfate 2 mg 06/29/24 10:40 07/01/24 00:53 Morphine Sulfate (*Crx) 2 Mg/Ml Inj IV PUSH 2 mg Q4H PRN Administration Pain * Home Med * 1 each 07/05/24 09:30 07/05/24 12:27 Vibegron 75 Mg Oral PO 08/01/24 08:59 1 each Tablet DAILY GALINA Administration Nortriptyline HCl 10 mg 06/29/24 21:00 07/04/24 22:01 Nortriptyline Hcl 10 Mg Capsule PO 10 mg HS GALINA Administration Pantoprazole Sodium 40 mg 06/30/24 09:00 07/05/24 10:00 Pantoprazole 40 Mg Tablet PO 40 mg QAM GALINA Administration Polyethylene Glycol 17 gm 07/03/24 09:00 07/05/24 10:02 Polyethylene Glycol 3350 17 Gm Powd.Pack PO 17 gm QAM GALINA Administration Potassium Chloride 20 meq 06/30/24 09:00 07/05/24 10:00 Potassium Chloride 20 Meq Er Tablet PO 20 meq DAILY GALINA Administration Rivaroxaban 20 mg 06/29/24 09:00 07/05/24 10:00 Rivaroxaban 20 Mg Tablet PO 20 mg DAILY GALINA Administration Sacubitril/Valsartan 1 tab 06/29/24 09:00 07/05/24 17:49 Sacubitril/Valsartan 24-26 Mg Tablet PO 1 tab BID GALINA Administration Sodium Chloride 500 mg 06/30/24 09:00 07/05/24 17:50 Sodium Chloride 500 Mg Tablet PO 500 mg BID GALINA Administration Radiology Results: ITS Impressions Miscellaneous CT Procedure 06/28/24 21:54 IMPRESSION: 1. No acute abdominal process with no evidence of appendicitis, diverticulitis or intestinal obstruction. No kidney stones seen. 2. Sliding hiatus hernia. CT abd pelvis lumbar wo con Ordering provider: Mia Rios MD History: 63 years Female with . R flank pain . Comparison: None. Technique: CT lumbar spine without contrast. Automated exposure control and iterative reconstruction technique were employed. The dose-length product was 1618.46 mGy-cm. FINDINGS: VERTEBRAE: Normal height and alignment. No subluxation or visible acute fracture. Degenerative changes. DISC SPACES: Well maintained. Multilevel facet joint disease. Diffuse disc bulge at the level of L3-4 with left posterolateral disc protrusion with narrowing with root compression. PARASPINOUS SOFT TISSUES: Normal. Bilateral sacroiliitis. IMPRESSION: No acute osseous abnormality seen. Chest X-Ray 06/30/24 09:51 IMPRESSION: 1. Mild pulmonary edema. 2. Cardiomegaly. Renal Ultrasound 07/01/24 14:40 IMPRESSION: No significant abnormality Cervical Spine CT 07/02/24 12:16 IMPRESSION: No definite acute osseous abnormality cervical spine. Multilevel degenerative disc disease with variable degrees of intervertebral foraminal narrowing. Thoracic/Lumbar Spine CT 07/02/24 12:24 IMPRESSION: 1. Moderate thoracic spondylosis and mild lumbar spondylosis. 2. Mild pulmonary edema. 3. Pulmonary nodules in right upper lobe and left lower lobe, which may be infection. Noncontrast low-dose chest CT is recommended in 1-3 months to exclude malignancy. 4. Embolized wire in a right lower lobe pulmonary artery, unchanged from 09/05/22. Labs Labs: Laboratory Results - last 24 hr 06/30/24 07/04/24 07/05/24 09:30 22:24 07:49 POC Capillary Glucose 153 H 190 H Serum Osmolality 278 07/05/24 07/05/24 11:58 16:57 POC Capillary Glucose 306 H 168 H Serum Osmolality
[2024-07-05] MEDS: NORTRIPTYLINE HCL 10 MG CAPSULE PO (20:06)
[2024-07-05] MEDS: ACETAMINOPHEN 500 MG TABLET 1000 MG PO (20:10)
[2024-07-06] VITALS (9 sets, daily range): BP systolic 101–128; BP diastolic 52–85; PULSE 79–109; RESP 18–22; TEMP 36.4–36.7; O2SAT 94–98
[2024-07-06 05:56] LABS: Basophils Absolute Auto 0.1 K/mm3 (0.0-0.1); Basophils Percent Auto 1.1 % (0.2-1.2); Eosinophils Absolute Auto 0.2 K/mm3 (0-0.3); Eosinophils Percent Auto 3.8 % (0-4.4); Hematocrit 34.3 % (37.0-47.0); Hemoglobin 10.8 g/dL (12.0-15.0); Immature Granulocyte Absolute 0.12 K/mm3 (0.00-0.031); Immature Granulocyte Percent A 1.9 % (0-0.5); Lymphocytes Absolute Auto 1.11 K/mm3 (0.9-3.2); Lymphocytes Percent Auto 17.3 % (18.3-44.2); Mean Corpuscular HGB Conc 31.5 g/dl (32-36); Mean Corpuscular Volume 101.8 fl (80-100); Mean Platelet Volume 9.3 fl (7.4-10.4); Monocytes Absolute Auto 0.4 K/mm3 (0.1-0.6); Monocytes Percent Auto 6.9 % (2.6-8.5); Neutrophils Absolute Auto 4.4 K/mm3 (1.3-6.7); Platelet Count Result 302 k/mm3 (150-375); Red Blood Count 3.37 M/mm3 (4.2-5.4); Red Cell Distribution Width 14.2 % (11.5-14.5); White Blood Count 6.4 K/mm3 (4.5-10.0)
[2024-07-06] MEDS: ceFAZolin 2 GM/D5W 50 ML 2 GM/50 ML BAG IVPB ×3 (06:06→20:11)
[2024-07-06] MEDS: LEVOTHYROXINE SODIUM 75 MCG TABLET PO (06:07)
[2024-07-06 06:11] LABS: Alanine Aminotransferase 11 U/L (6-35); Alkaline Phosphatase 197 U/L (38-126); Anion Gap 4 mmol/L (4-12); Aspartate Amino Transferase 27 U/L (14-36); Bilirubin,Total 0.5 mg/dL (0.2-1.3); Blood Urea Nitrogen 15 mg/dL (7-17); CRP 2.8 mg/dL (<1.0); Calcium 8.7 mg/dL (8.4-10.2); Carbon Dioxide 33 mmol/L (22-30); Chloride 96 mmol/L (98-107); Estimated CRCL calculation 94 ml/min; Estimated Glomerular Filt Rate > 60; Glucose 256 mg/dL (65-110); Magnesium 1.9 mg/dL (1.6-2.3); Phosphorus 3.9 mg/dL (2.5-4.5); Potassium 4.3 mmol/L (3.4-5.0); Sodium 133 mmol/L (137-145)
[2024-07-06 08:07] LABS: Glucose Point of Care 294 mg/dl (65-105)
[2024-07-06] MEDS: MAGNESIUM OXIDE 400 MG TABLET PO (09:38)
[2024-07-06] MEDS: SODIUM CHLORIDE 500 MG TABLET PO ×2 (09:38→17:29)
[2024-07-06] MEDS: RIVAROXABAN 20 MG TABLET PO (09:38)
[2024-07-06] MEDS: PANTOPRAZOLE 40 MG TABLET PO (09:38)
[2024-07-06] MEDS: SACUBITRIL/VALSARTAN 24-26 MG TABLET 1 TAB PO ×2 (09:39→17:29)
[2024-07-06] MEDS: ESCITALOPRAM OXALATE 10 MG TABLET PO (09:39)
[2024-07-06] MEDS: FUROSEMIDE 40 MG TABLET PO (09:39)
[2024-07-06] MEDS: POTASSIUM CHLORIDE 20 MEQ ER TABLET PO (09:39)
[2024-07-06] MEDS: HYDROcodone/acetaminophen (*CRX) 5-325 MG TABLET 1 TAB PO ×2 (09:39→17:32)
[2024-07-06] MEDS: METOPROLOL SUCCINATE EXT REL 50 MG TABCR PO (09:39)
[2024-07-06] MEDS: DOCUSATE SODIUM 100 MG CAPSULE PO ×2 (09:39→17:29)
[2024-07-06] MEDS: polyethylene glycoL 3350 17 GM POWD.PACK PO (09:40)
[2024-07-06] MEDS: INSULIN GLARGINE (*BKC) 100 UNITS/ML 18 UNITS SUB-Q (09:41)
[2024-07-06] MEDS: INSULIN ASPART (*BKC) 100 UNITS/ML SUB-Q ×2 (09:43→12:51)
[2024-07-06] MEDS: INSULIN ASPART (*BKC) 100 UNITS/ML 13 UNITS SUB-Q (09:43)
--- NOTE | 2024-07-06 10:26 | P.PNIM_ITS ---
Progress Note: A&P Assessment and Plan (1) Bacteremia: Code(s): R78.81 - Bacteremia Status: Acute (2) Back pain: Code(s): M54.9 - Dorsalgia, unspecified Status: Acute (3) Atrial fibrillation with rapid ventricular response: Code(s): I48.91 - Unspecified atrial fibrillation Status: Acute (4) UTI (urinary tract infection): Code(s): N39.0 - Urinary tract infection, site not specified Status: Acute (5) Thrombocytopenia: Code(s): D69.6 - Thrombocytopenia, unspecified Status: Acute (6) HTN (hypertension): Code(s): I10 - Essential (primary) hypertension Status: Chronic (7) Diabetes: Code(s): E11.9 - Type 2 diabetes mellitus without complications Status: Acute (8) Heart failure: Code(s): I50.9 - Heart failure, unspecified Status: Acute (9) AICD (automatic cardioverter/defibrillator) present: Code(s): Z95.810 - Presence of automatic (implantable) cardiac defibrillator Status: Acute (10) Pacemaker: Code(s): Z95.0 - Presence of cardiac pacemaker Status: Acute Plan 63-year-old female presenting with right flank pain, weakness, abdominal pain, n/v and diarrhea for 3 days. 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 for treatment. She has already completed her IV Ancef course on 06/21/2024. She was recently admitted and discharged on 06/21/2024 after a fall and finding of nonsustained ventricular tachycardia. She had a syncopal episode, fell forward and hit her head. She has a laceration which has been sutured. Since then, her AICD was interrogated and had 5 discharges noted. She also had a clot in her left atrial appendage and cardioversion for atrial fibrillation was canceled. She has been on Xarelto since then. CT abdomen and pelvis was done which showed no acute intra-abdominal abnormality. AFib with RVR on admission and started on diltiazem drip. Diltiaz em drip tapered off and restarted her metoprolol. Xarelto continued. Heart rate stable on tele. Urine culture positive for EColi that was relatively pansensitive. She completed treatment for this. She was on ceftriaxone but BCx returned positive for MSSA. She was on Vancomycin and Ancef but narrowed to Ancef once sensitivities were known. WBC normal. CRP trending down. Renal ultrasound unremarkable. Mild hypoxia noted and felt related to her underlying sleep apnea. She does not tolerate CPAP at home. CXR with congestive changes so Lasix IV x1 06/30 ordered and felt related to the AFib/RVR. This has resolved. Echo 06/29 showing EF 45-50% with mild LV enlargement and mildly reduced systolic fxn. No visible infectious vegetation although suboptimal visualization of the tricuspid and pulmonic valve. Hyponatremia worsened down to 123. TSH and Cortisol within normal limits. Urine Na 60 with FENa 0.5%. Salt tablets added. Sodium up to 132. She was started on oral lasix. Patient with persistent back pain. CT lumbar with contrast (07/02) showing moderate thoracic and mild lumbar spondylosis with diffuse disc bulging and mild central canal stenosis. Multiple areas on severe facet joint OA with mild neural foraminal stenosis. Neurosurgery consulted. Concern for the development of vertebral osteomyelitis. Scan also shows pulmonary nodules (RUL, LLL). Repeat BCx NGTD. Lumbar MRI to rule out diskitis/osteomyeltis cannot be done here due to her ICD. Another provider discussed with [facility] and they have accepted her. Waiting for transfer to [facility] for ID consult for possible recurrent endocarditis and/or osteomyelitis/discitis. No CHANCE here and will defer to [facility]. Continue PT/OT. Check CT chest to further evaluate these pulmonary lesions. Place PICC line. DVT prophylaxis on Xarelto Code status full code Subjective Date/time seen: 07/06/24 10:26 Interval history: 63yo female with AFib, DM, HTN and recent hx of endocarditis here for flank pain. Still complains of low back pain. Was up to the chair yesterday. no CP or SOB. No n/v. Transferred to [facility]. Echo there showed clot in left atrial appendage but no TV vegetation. Discharged on 06/08 on IV abx as Ancef through 06/22. She was readmitted to [facility] for VFib with plans for ICD once her bacteremia cleared. She completed IV abx. Exam Narrative: AF 98.1 101/64 109 18 98%ra Gen - NARD sitting at the side of the bed Chest - CTA bilaterally, nml RR CV - irregularly irregular; Tele showing AFib with controlled rate Abd - Soft, obese, NT Ext - No pedal edema Psych - Nml mood and affect Skin - Warm and dry Objective Data Vital Signs Vital Signs: Vital Signs - 24 hr 07/05/24 12:00 07/05/24 14:00 07/05/24 17:48 Temperature 97.7 F Pulse Rate 100 83 102 H Respiratory Rate 26 H Blood Pressure 110/58 L 112/58 L Pulse Oximetry 93 Oxygen Delivery Fraction of Inspired Oxygen 07/05/24 16:00 07/05/24 19:55 07/05/24 20:00 Temperature Pulse Rate 68 102 H 82 Respiratory Rate 26 H Blood Pressure Pulse Oximetry 93 Oxygen Delivery Room Air Fraction of Inspired Oxygen 07/05/24 19:46 07/06/24 00:00 07/06/24 04:00 Temperature 97.7 F Pulse Rate 85 79 82 Respiratory Rate 18 Blood Pressure 108/61 Pulse Oximetry 97 Oxygen Delivery Fraction of Inspired Oxygen 07/06/24 06:00 07/06/24 09:37 07/06/24 09:39 Temperature 98.1 F Pulse Rate 86 109 H 109 H Respiratory Rate 18 Blood Pressure 115/67 101/64 Pulse Oximetry 98 Oxygen Delivery Fraction of Inspired Oxygen Intake/Output Intake/Output: Intake & Output 07/03/24 07/04/24 07/05/24 07/06/24 23:59 23:59 23:59 23:59 Intake Total 2550 1860 1350 960 Output Total 200 1300 Balance 2350 1860 50 960 Meds/Results Medications: Active Medications Generic Name Dose Route Start Last Admin Trade Name Freq PRN Reason Stop Dose Admin Acetaminophen 1,000 mg 06/30/24 04:04 07/05/24 20:10 Acetaminophen 500 Mg Tablet PO 1,000 mg Q6H PRN Administration Mild Pain (1-3) or Fever Hydrocodone Bitart/Acetaminophen 1 tab 06/30/24 14:17 07/06/24 09:39 Hydrocodone/Acetaminophen (*Crx) 5-325 Mg Tablet PO 1 tab Q6H PRN Administration Pain Rated 4-6 Bisacodyl 10 mg 07/02/24 13:53 Bisacodyl 10 Mg Suppository RECTAL QAM PRN Constipation Cyclobenzaprine HCl 5 mg 07/01/24 12:36 09/26/24 12:32 Cyclobenzaprine Hcl 5 Mg Tablet PO 5 mg Q8H PRN Administration Muscle Spasm Dextrose 12.5 gm 06/29/24 08:56 Dextrose 50% 25 Gm/50 Ml Syringe IV PUSH PRN PRN Hypoglycemia Protocol Docusate Sodium 100 mg 06/29/24 09:00 07/06/24 09:39 Docusate Sodium 100 Mg Capsule PO 100 mg BID GALINA Administration Escitalopram Oxalate 10 mg 06/29/24 09:00 07/06/24 09:39 Escitalopram Oxalate 10 Mg Tablet PO 10 mg DAILY GALINA Administration Furosemide 40 mg 06/29/24 09:00 07/06/24 09:39 Furosemide 40 Mg Tablet PO 40 mg DAILY GALINA Administration Glucagon 1 mg 06/29/24 08:56 Glucagon For Inj 1 Mg Vial IM PRN PRN Hypoglycemia Protocol Glucose 15 gm 06/29/24 08:56 Glucose Oral Gel 15 Gm Of Glucse In 37.5 Gm Tube PO PRN PRN Hypoglycemia Protocol Dextrose 1,000 mls @ 100 mls/hr 06/29/24 08:56 Dextrose 5% 1,000 Ml IVPB PRN PRN Hypoglycemia Protocol Cefazolin Sodium 2 gm in 50 mls @ 100 mls/hr 07/03/24 04:00 07/06/24 06:06 Ancef 2 Gm/D5w 50 Ml IVPB 100 mls/hr Q8HR GALINA Administration Insulin Aspart 2 - 5 units 06/29/24 12:00 07/06/24 09:43 Insulin Aspart (*Bkc) 100 Units/Ml SUB-Q 3 units TIDWM GALINA Administration Protocol Insulin Aspart 10 units 07/06/24 17:00 Insulin Aspart (*Bkc) 100 Units/Ml SUB-Q 1700 GALINA Insulin Aspart 10 units 07/06/24 12:00 Insulin Aspart (*Bkc) 100 Units/Ml 0.083 units/kg (10 units) SUB-Q NOON [facility] Insulin Aspart 13 units 07/06/24 08:00 07/06/24 09:43 Insulin Aspart (*Bkc) 100 Units/Ml SUB-Q 13 units 0800 GALINA Administration Insulin Glargine 18 units 07/02/24 09:00 07/06/24 09:41 Insulin Glargine (*Bkc) 100 Units/Ml SUB-Q 18 units DAILY GALINA Administration Levothyroxine Sodium 75 mcg 06/29/24 11:00 07/06/24 06:07 Levothyroxine Sodium 75 Mcg Tablet PO 75 mcg DAILY@0630 GALINA Administration Magnesium Oxide 400 mg 06/29/24 09:00 07/06/24 09:38 Magnesium Oxide 400 Mg Tablet PO 400 mg DAILY GALINA Administration Metoprolol Succinate 50 mg 06/29/24 09:00 07/06/24 09:39 Metoprolol Succinate Ext Rel 50 Mg Tabcr PO 50 mg DAILY GALINA Administration Midodrine 2.5 mg 06/29/24 08:49 Midodrine Hcl 2.5 Mg Tablet PO Q12H PRN Hypotension Morphine Sulfate 2 mg 06/29/24 10:40 07/01/24 00:53 Morphine Sulfate (*Crx) 2 Mg/Ml Inj IV PUSH 2 mg Q4H PRN Administration Pain * Home Med * 1 each 07/05/24 09:30 07/06/24 09:40 Vibegron 75 Mg Oral PO 08/01/24 08:59 1 each Tablet DAILY GALINA Administration Nortriptyline HCl 10 mg 06/29/24 21:00 07/05/24 20:06 Nortriptyline Hcl 10 Mg Capsule PO 10 mg HS GALINA Administration Pantoprazole Sodium 40 mg 06/30/24 09:00 07/06/24 09:38 Pantoprazole 40 Mg Tablet PO 40 mg QAM GALINA Administration Polyethylene Glycol 17 gm 07/03/24 09:00 07/06/24 09:40 Polyethylene Glycol 3350 17 Gm Powd.Pack PO 17 gm QAM GALINA Administration Potassium Chloride 20 meq 06/30/24 09:00 07/06/24 09:39 Potassium Chloride 20 Meq Er Tablet PO 20 meq DAILY GALINA Administration Rivaroxaban 20 mg 06/29/24 09:00 07/06/24 09:38 Rivaroxaban 20 Mg Tablet PO 20 mg DAILY GALINA Administration Sacubitril/Valsartan 1 tab 06/29/24 09:00 07/06/24 09:39 Sacubitril/Valsartan 24-26 Mg Tablet PO 1 tab BID GALINA Administration Sodium Chloride 500 mg 06/30/24 09:00 07/06/24 09:38 Sodium Chloride 500 Mg Tablet PO 500 mg BID GALINA Administration Radiology Results: ITS Impressions Miscellaneous CT Procedure 06/28/24 21:54 IMPRESSION: 1. No acute abdominal process with no evidence of appendicitis, diverticulitis or intestinal obstruction. No kidney stones seen. 2. Sliding hiatus hernia. CT abd pelvis lumbar wo con Ordering provider: Mia Rios MD History: 63 years Female with . R flank pain . Comparison: None. Technique: CT lumbar spine without contrast. Automated exposure control and iterative reconstruction technique were employed. The dose-length product was 1618.46 mGy-cm. FINDINGS: VERTEBRAE: Normal height and alignment. No subluxation or visible acute fracture. Degenerative changes. DISC SPACES: Well maintained. Multilevel facet joint disease. Diffuse disc bulge at the level of L3-4 with left posterolateral disc protrusion with narrowing with root compression. PARASPINOUS SOFT TISSUES: Normal. Bilateral sacroiliitis. IMPRESSION: No acute osseous abnormality seen. Chest X-Ray 06/30/24 09:51 IMPRESSION: 1. Mild pulmonary edema. 2. Cardiomegaly. Renal Ultrasound 07/01/24 14:40 IMPRESSION: No significant abnormality Cervical Spine CT 07/02/24 12:16 IMPRESSION: No definite acute osseous abnormality cervical spine. Multilevel degenerative disc disease with variable degrees of intervertebral foraminal narrowing. Thoracic/Lumbar Spine CT 07/02/24 12:24 IMPRESSION: 1. Moderate thoracic spondylosis and mild lumbar spondylosis. 2. Mild pulmonary edema. 3. Pulmonary nodules in right upper lobe and left lower lobe, which may be infection. Noncontrast low-dose chest CT is recommended in 1-3 months to exclude malignancy. 4. Embolized wire in a right lower lobe pulmonary artery, unchanged from 09/05/22. Labs Labs: Laboratory Results - last 24 hr 06/30/24 07/05/24 07/05/24 09:30 11:58 16:57 WBC RBC Hgb Hct MCV MCH MCHC RDW Plt Count MPV Immature Gran % (Auto) Neut % (Auto) Lymph % (Auto) [place] % (Auto) Eos % (Auto) Baso % (Auto) Lymph # (Auto) [place] # (Auto) Eos # (Auto) Baso # (Auto) Abs Immat Gran (auto) Absolute Neuts (auto) Absolute Nucleated RBC Nucleated RBC % Sodium Potassium Chloride Carbon Dioxide Anion Gap BUN Creatinine Estim Creat Clear Calc Estimated GFR Glucose POC Capillary Glucose 306 H 168 H Serum Osmolality 278 Calcium Phosphorus Magnesium Total Bilirubin AST ALT Alkaline Phosphatase C-Reactive Protein Total Protein Albumin 07/06/24 07/06/24 05:36 08:01 WBC 6.4 RBC 3.37 L Hgb 10.8 L Hct 34.3 L MCV 101.8 H MCH 32.0 MCHC 31.5 L RDW 14.2 Plt Count 302 MPV 9.3 Immature Gran % (Auto) 1.9 H Neut % (Auto) 69.0 Lymph % (Auto) 17.3 L [place] % (Auto) 6.9 Eos % (Auto) 3.8 Baso % (Auto) 1.1 Lymph # (Auto) 1.11 [place] # (Auto) 0.4 Eos # (Auto) 0.2 Baso # (Auto) 0.1 Abs Immat Gran (auto) 0.12 H Absolute Neuts (auto) 4.4 Absolute Nucleated RBC 0.000 Nucleated RBC % 0.0 Sodium 133 L Potassium 4.3 Chloride 96 L Carbon Dioxide 33 H Anion Gap 4 BUN 15 Creatinine 0.70 Estim Creat Clear Calc 94 Estimated GFR > 60 Glucose 256 H POC Capillary Glucose 294 H Serum Osmolality Calcium 8.7 Phosphorus 3.9 Magnesium 1.9 Total Bilirubin 0.5 AST 27 ALT 11 Alkaline Phosphatase 197 H C-Reactive Protein 2.8 H Total Protein 7.0 Albumin 3.0 L
[2024-07-06 11:54] LABS: Glucose Point of Care 272 mg/dl (65-105)
[2024-07-06] MEDS: INSULIN ASPART (*BKC) 100 UNITS/ML 10 UNITS SUB-Q ×2 (12:50→17:29)
[2024-07-06 16:50] LABS: Glucose Point of Care 121 mg/dl (65-105)
--- NOTE | 2024-07-06 20:11 | P.TS_ITS ---
Transfer Discharge Sum: Prov Provider Date of admission: 06/30/24 15:04 Primary care physician: Oswaldo Serrano, Admitting clinician: Ramon Calvert MD Consults: 07/02/24 10:46 Consult to Physician Routine Comment: Deshaun spoke to DR Paez @ 11:25 (TH-) Consulting Provider: Shania Camara call center operations manager/MD group to consult: neurosurgery Reason for consultation: back pain with CT finding of L3-L4 disc bulge Has provider been notified: Yes DS: Admitting Diagnosis Discharge Date 07/06/24 Admitting Diagnosis Flank pain. DS: Discharge Diagnosis Discharge Diagnosis (1) Bacteremia: Code(s): R78.81 - Bacteremia Status: Acute (2) Back pain: Code(s): M54.9 - Dorsalgia, unspecified Status: Acute (3) Atrial fibrillation with rapid ventricular response: Code(s): I48.91 - Unspecified atrial fibrillation Status: Acute (4) UTI (urinary tract infection): Code(s): N39.0 - Urinary tract infection, site not specified Status: Acute (5) Thrombocytopenia: Code(s): D69.6 - Thrombocytopenia, unspecified Status: Acute (6) HTN (hypertension): Code(s): I10 - Essential (primary) hypertension Status: Chronic (7) Diabetes: Code(s): E11.9 - Type 2 diabetes mellitus without complications Status: Acute (8) Heart failure: Code(s): I50.9 - Heart failure, unspecified Status: Acute (9) AICD (automatic cardioverter/defibrillator) present: Code(s): Z95.810 - Presence of automatic (implantable) cardiac defibrillator Status: Acute (10) Pacemaker: Code(s): Z95.0 - Presence of cardiac pacemaker Status: Acute Transfer Discharge Sum: Med Medications Active and Home Medications: Home Medications escitalopram oxalate 10 mg tablet 10 mg PO DAILY 06/27/20 [History Confirmed 06/29/24] nortriptyline 10 mg capsule 10 mg PO HS 06/27/20 [History Confirmed 06/29/24] omeprazole 20 mg capsule,delayed release 20 mg PO DAILY 06/27/20 [History Confirmed 06/29/24] potassium chloride 20 mEq tablet,extended release(part/cryst) 20 meq PO DAILY 06/27/20 [History Confirmed 06/29/24] rivaroxaban 20 mg tablet (Xarelto) 20 mg PO DAILY 06/27/20 [History Confirmed 06/29/24] docusate sodium 100 mg capsule 100 mg PO BID 05/21/24 [History Confirmed 06/29/24] insulin aspart U-100 100 unit/mL (3 mL) subcutaneous pen (Novolog FlexPen U-100 Insulin aspart) 10 unit subcut TIDWMEAL 05/21/24 [History Confirmed 06/29/24] insulin glargine 100 unit/mL (3 mL) subcutaneous pen (Basaglar KwikPen U-100 Insulin) 18 unit subcut DAILY 05/21/24 [History Confirmed 06/29/24] levothyroxine 75 mcg tablet 75 mcg PO DAILY 05/21/24 [History Confirmed 06/29/24] sacubitril 24 mg-valsartan 26 mg tablet (Entresto) 1 tablet PO BID 05/21/24 [His tory Confirmed 06/29/24] vibegron 75 mg tablet (Gemtesa) 75 mg PO DAILY 05/21/24 [History Confirmed 06/29/24] insulin aspart U-100 100 unit/mL (3 mL) subcutaneous pen (Novolog FlexPen U-100 Insulin aspart) See Rx Instructions .Route .COMPLEX 06/29/24 [History Confirmed 06/29/24] magnesium oxide 400 mg (241.3 mg magnesium) tablet 400 mg PO DAILY 06/29/24 [History Confirmed 06/29/24] metoprolol succinate 50 mg tablet,extended release 24 hr 50 mg PO DAILY 06/29/24 [History Confirmed 06/29/24] midodrine 5 mg tablet 2.5 mg PO Q12H PRN Hypotension 06/29/24 [History Confirmed 06/29/24] Active Medications Acetaminophen (Acetaminophen 500 Mg Tablet) 1,000 mg PO Q6H PRN PRN Reason: Mild Pain (1-3) or Fever Last Admin: 07/05/24 20:10 Dose: 1,000 mg Hydrocodone Bitart/Acetaminophen (Hydrocodone/Acetaminophen (*Crx) 5-325 Mg Tablet) 1 tab PO Q6H PRN PRN Reason: Pain Rated 4-6 Last Admin: 07/06/24 17:32 Dose: 1 tab Bisacodyl (Bisacodyl 10 Mg Suppository) 10 mg RECTAL QAM PRN PRN Reason: Constipation Cyclobenzaprine HCl (Cyclobenzaprine Hcl 5 Mg Tablet) 5 mg PO Q8H PRN PRN Reason: Muscle Spasm Last Admin: 07/05/24 12:32 Dose: 5 mg Dextrose (Dextrose 50% 25 Gm/50 Ml Syringe) 12.5 gm IV PUSH PRN PRN; Protocol PRN Reason: Hypoglycemia Docusate Sodium (Docusate Sodium 100 Mg Capsule) 100 mg PO BID [facility] Last Admin: 07/06/24 17:29 Dose: 100 mg Escitalopram Oxalate (Escitalopram Oxalate 10 Mg Tablet) 10 mg PO DAILY [facility] Last Admin: 07/06/24 09:39 Dose: 10 mg Furosemide (Furosemide 40 Mg Tablet) 40 mg PO DAILY [facility] Last Admin: 07/06/24 09:39 Dose: 40 mg Glucagon (Glucagon For Inj 1 Mg Vial) 1 mg IM PRN PRN; Protocol PRN Reason: Hypoglycemia Glucose (Glucose Oral Gel 15 Gm Of Glucse In 37.5 Gm Tube) 15 gm PO PRN PRN; Protocol PRN Reason: Hypoglycemia Dextrose (Dextrose 5% 1,000 Ml) 1,000 mls @ 100 mls/hr IVPB PRN PRN; Protocol PRN Reason: Hypoglycemia Cefazolin Sodium (Ancef 2 Gm/D5w 50 Ml) 2 gm in 50 mls @ 100 mls/hr IVPB Q8HR [facility] Last Admin: 07/06/24 13:50 Dose: 100 mls/hr Insulin Aspart (Insulin Aspart (*Bkc) 100 Units/Ml) 2 - 5 units SUB-Q TIDWM [facility]; Protocol Last Admin: 07/06/24 17:25 Dose: Not Given Insulin Aspart (Insulin Aspart (*Bkc) 100 Units/Ml) 10 units SUB-Q 1700 [facility] Last Admin: 07/06/24 17:29 Dose: 10 units Insulin Aspart (Insulin Aspart (*Bkc) 100 Units/Ml) 10 units 0.083 units/kg (10 units) SUB-Q NOON [facility] Last Admin: 07/06/24 12:50 Dose: 10 units Insulin Aspart (Insulin Aspart (*Bkc) 100 Units/Ml) 13 units SUB-Q 0800 [facility] Last Admin: 07/06/24 09:43 Dose: 13 units Insulin Glargine (Insulin Glargine (*Bkc) 100 Units/Ml) 18 units SUB-Q DAILY [facility] Last Admin: 07/06/24 09:41 Dose: 18 units Levothyroxine Sodium (Levothyroxine Sodium 75 Mcg Tablet) 75 mcg PO DAILY@0630 [facility] Last Admin: 07/06/24 06:07 Dose: 75 mcg Magnesium Oxide (Magnesium Oxide 400 Mg Tablet) 400 mg PO DAILY [facility] Last Admin: 07/06/24 09:38 Dose: 400 mg Metoprolol Succinate (Metoprolol Succinate Ext Rel 50 Mg Tabcr) 50 mg PO DAILY [facility] Last Admin: 07/06/24 09:39 Dose: 50 mg Midodrine (Midodrine Hcl 2.5 Mg Tablet) 2.5 mg PO Q12H PRN PRN Reason: Hypotension Morphine Sulfate (Morphine Sulfate (*Crx) 2 Mg/Ml Inj) 2 mg IV PUSH Q4H PRN PRN Reason: Pain Last Admin: 07/01/24 00:53 Dose: 2 mg * Home Med * Vibegron 75 Mg Oral Tablet 1 each PO DAILY [facility] Stop: 08/01/24 08:59 Last Admin: 07/06/24 09:40 Dose: 1 each Nortriptyline HCl (Nortriptyline Hcl 10 Mg Capsule) 10 mg PO HS [facility] Last Admin: 07/05/24 20:06 Dose: 10 mg Pantoprazole Sodium (Pantoprazole 40 Mg Tablet) 40 mg PO QAM [facility] Last Admin: 07/06/24 09:38 Dose: 40 mg Polyethylene Glycol (Polyethylene Glycol 3350 17 Gm Powd.Pack) 17 gm PO QAM [facility] Last Admin: 07/06/24 09:40 Dose: 17 gm Potassium Chloride (Potassium Chloride 20 Meq Er Tablet) 20 meq PO DAILY [facility] Last Admin: 07/06/24 09:39 Dose: 20 meq Rivaroxaban (Rivaroxaban 20 Mg Tablet) 20 mg PO DAILY [facility] Last Admin: 07/06/24 09:38 Dose: 20 mg Sacubitril/Valsartan (Sacubitril/Valsartan 24-26 Mg Tablet) 1 tab PO BID [facility] Last Admin: 07/06/24 17:29 Dose: 1 tab Sodium Chloride (Sodium Chloride 500 Mg Tablet) 500 mg PO BID [facility] Last Admin: 07/06/24 17:29 Dose: 500 mg Transfer Discharge Sum: Hosp Hospital Course Hospital course: Loretta Penn is a 63 year old female with AFib, DM, HTN and recent hx of endocarditis here for flank pain. Please see H&P for details. 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 On 05/30, she ws found to have a dislodged catheter vs wire in the right pulmonary artery. CHANCE performed did not show tricuspid valve vegetation but the catheter vs wire in right pulmonary artery and left atrial appendage clot. She was started on anticoagulation. She was discharged on 06/08 on Ancef. She was readmitted for VFib and ICD placed. She completed her IV antibiotic course on 06/21/2024. Here, CT abdomen and pelvis was done which showed no acute intra-abdominal abnormality. AFib with RVR on admission and started on diltiazem drip. Diltiazem drip tapered off and restarted her metoprolol. Xarelto continued. Heart rate stable on tele. Urine culture positive for EColi that was relatively pansensitive. She completed treatment for this. She was on ceftriaxone but BCx returned positive for MSSA so abx broadened. She was on Vancomycin and Ancef but narrowed to Ancef once sensitivities were known. WBC normal. CRP trending down. Renal ultrasound unremarkable. Mild hypoxia noted and felt related to her underlying sleep apnea. She does not tolerate CPAP at home. CXR with congestive changes so Lasix IV x1 06/30 ordered and felt related to the AFib/RVR. This has resolved. Echo 06/29 showing EF 45-50% with mild LV enlargement and mildly reduced systolic fxn. No visible infectious vegetation although suboptimal visualization of the tricuspid and pulmonic valve. Hyponatremia worsened down to 123. TSH and Cortisol within normal limits. Urine Na 60 with FENa 0.5%. Salt tablets added. Sodium up to 134. She was started on oral lasix. Patient with persistent back pain. CT lumbar with contrast (07/02) showing moderate thoracic and mild lumbar spondylosis with diffuse disc bulging and mild central canal stenosis. Multiple areas on severe facet joint OA with mild neural foraminal stenosis. Neurosurgery consulted. Concern for the development of vertebral osteomyelitis. Scan also shows pulmonary nodules (RUL, LLL). Repeat BCx NGTD. Lumbar MRI to rule out diskitis/osteomyeltis cannot be done here due to her ICD. Another provider discussed with [facility] for transfer for ID consult for possible recurrent endocarditis and/or osteomyelitis/discitis. No CHANCE here and w ill defer to [facility]. CT chest does show multiple pulmonary nodules bilaterally with the largest in the right upper lobe measuring 1.3 cm. Also with CMG and pericardial effusion. Patient was transferred in stable condition. Time Spent with Patient Time attestation: Total time spent providing and/or coordinating transfer services: 40 minutes Total time spent: Greater than 30 minutes Exam Narrative: AF 98.1 101/64 109 18 98%ra Gen - NARD sitting at the side of the bed Chest - CTA bilaterally, nml RR CV - irregularly irregular; Tele showing AFib with controlled rate Abd - Soft, obese, NT Ext - No pedal edema Psych - Nml mood and affect Skin - Warm and dry DS: Data Data Completed and Pending Labs on day of discharge: Labs from last 24 hours 07/06/24 07/06/24 07/06/24 16:41 11:44 08:01 WBC RBC Hgb Hct MCV MCH MCHC RDW Plt Count MPV Immature Gran % (Auto) Neut % (Auto) Lymph % (Auto) Mchenry % (Auto) Eos % (Auto) Baso % (Auto) Lymph # (Auto) Mchenry # (Auto) Eos # (Auto) Baso # (Auto) Abs Immat Gran (auto) Absolute Neuts (auto) Absolute Nucleated RBC Nucleated RBC % Sodium Potassium Chloride Carbon Dioxide Anion Gap BUN Creatinine Estim Creat Clear Calc Estimated GFR Glucose POC Capillary Glucose 121 H 272 H 294 H Calcium Phosphorus Magnesium Total Bilirubin AST ALT Alkaline Phosphatase C-Reactive Protein Total Protein Albumin 07/06/24 05:36 WBC 6.4 RBC 3.37 L Hgb 10.8 L Hct 34.3 L MCV 101.8 H MCH 32.0 MCHC 31.5 L RDW 14.2 Plt Count 302 MPV 9.3 Immature Gran % (Auto) 1.9 H Neut % (Auto) 69.0 Lymph % (Auto) 17.3 L Mchenry % (Auto) 6.9 Eos % (Auto) 3.8 Baso % (Auto) 1.1 Lymph # (Auto) 1.11 Mchenry # (Auto) 0.4 Eos # (Auto) 0.2 Baso # (Auto) 0.1 Abs Immat Gran (auto) 0.12 H Absolute Neuts (auto) 4.4 Absolute Nucleated RBC 0.000 Nucleated RBC % 0.0 Sodium 133 L Potassium 4.3 Chloride 96 L Carbon Dioxide 33 H Anion Gap 4 BUN 15 Creatinine 0.70 Estim Creat Clear Calc 94 Estimated GFR > 60 Glucose 256 H POC Capillary Glucose Calcium 8.7 Phosphorus 3.9 Magnesium 1.9 Total Bilirubin 0.5 AST 27 ALT 11 Alkaline Phosphatase 197 H C-Reactive Protein 2.8 H Total Protein 7.0 Albumin 3.0 L Preliminary micro results at discharge 07/02/24 21:33 Blood Culture - Preliminary Blood 07/02/24 21:33 Blood Culture - Preliminary Blood 07/01/24 13:02 Blood Culture - Preliminary Blood Staphylococcus aureus
[2024-07-06] MEDS: NORTRIPTYLINE HCL 10 MG CAPSULE PO (20:18)
[2024-07-06 20:50] LABS: Glucose Point of Care 213 mg/dl (65-105)
== END 2024-07-06 23:30 | disposition short-term general hospital (02) | DRG 690 ==
LOC: ANHED 06-29 02:37 → ANHIMU 06-29 03:31 → ANH2MED 07-01 01:50
PROVIDERS: Internal Medicine; Admitting Provider Internal Medicine; Emergency Provider Emergency Medicine; PCP Family Medicine; Visit Provider Internal Medicine
DX: N39.0 Urinary tract infection, site not specified (principal); R78.81 Bacteremia; E87.1 Hypo-osmolality and hyponatremia; I47.20 Ventricular tachycardia, unspecified; I50.32 Chronic diastolic (congestive) heart failure; E44.0 Moderate protein-calorie malnutrition; Z68.41 Body mass index [BMI] 40.0-44.9, adult; B96.20 Unspecified Escherichia coli [E. coli] as the cause of diseases classified elsewhere; B95.61 Methicillin susceptible Staphylococcus aureus infection as the cause of diseases classified elsewhere; D69.6 Thrombocytopenia, unspecified; E11.9 Type 2 diabetes mellitus without complications; E03.9 Hypothyroidism, unspecified; G47.30 Sleep apnea, unspecified; I11.0 Hypertensive heart disease with heart failure; I48.0 Paroxysmal atrial fibrillation; K21.9 Gastro-esophageal reflux disease without esophagitis; M47.815 Spondylosis without myelopathy or radiculopathy, thoracolumbar region; R91.8 Other nonspecific abnormal finding of lung field; Z79.01 Long term (current) use of anticoagulants; Z79.4 Long term (current) use of insulin; Z99.89 Dependence on other enabling machines and devices; Z91.199 Patient's noncompliance with other medical treatment and regimen due to unspecified reason; Z95.810 Presence of automatic (implantable) cardiac defibrillator; Z87.891 Personal history of nicotine dependence; Z86.79 Personal history of other diseases of the circulatory system
CPT/HCPCS: 36415; 71045; 71250; 72126; 72129; 72131; 72132; 74176; 76775; 80053; 81001; 82306; 82533; 82565; 82570; 82607; 82746; 82948; 83690; 83735; 83930; 83935; 84100; 84300; 84443; 84484; 84540; 85025; 85055; 86140; 87040; 87077; 87086; 87088; 87181; 87186; 93005; 93308; 96361; 96365; 96366; 96375; 96376; 97110; 97161; 97165; 97530; 97535; 99285; A9270; G0378; J0690; J0696; J1170; J1815; J1940; J2270; J2405; J3370; J7030; Q9967

== ENCOUNTER 2024-09-29 22:39 | Emergency (ER) | payer OTHER, MEDICARE, SELFPAY ==
--- NOTE | ~2024-09-29 | XR_ITS ---
EXAMINATION: XR chest 1V portable DATE: 09/29/2024 23:59 INDICATION: Shortness of breath. TECHNIQUE: A single frontal view of the chest was obtained. COMPARISON: Chest single view 06/30/2024 FINDINGS: There is a diffuse interstitial pattern in the lungs, consistent mild pulmonary edema. No p leural effusion or pneumothorax. Cardiomegaly is noted. IMPRESSION: 1. Mild pulmonary edema. 2. Cardiomegaly. Reviewed, dictated and finalized at location A. DESK 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
[2024-09-29 22:44] VITALS: BP 118/81; PULSE 82; RESP 20; TEMP 36.4; O2SAT 100
--- NOTE | 2024-09-29 23:49 | ED.GENADULT ---
HPI - General Adult General Chief complaint: Extremity Problem,Nontraumatic Stated complaint: bilateral swelling in feet Time Seen by Provider: 09/29/24 23:37 History of Present Illness HPI narrative: 63-year-old female presents emergency department for evaluation for lower extremity swelling, shortness of breath and allergic reaction. Patient suspects that she is having allergic reaction to a detergent. 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 Patient denies any chest pain appears to be in distress. Related Data Home Medications ?Medication ?Instructions ?Recorded ?Confirmed ?Last Taken ?Type escitalopram oxalate 10 mg tablet 10 mg PO DAILY 06/27/20 06/29/24 Unknown History nortriptyline 10 mg capsule 10 mg PO HS 06/27/20 06/29/24 Unknown History omeprazole 20 mg capsule,delayed 20 mg PO DAILY 06/27/20 06/29/24 Unknown History release potassium chloride 20 mEq 20 meq PO DAILY 06/27/20 06/29/24 Unknown History tablet,extended release(part/cryst) rivaroxaban 20 mg tablet (Xarelto) 20 mg PO DAILY 06/27/20 06/29/24 Unknown History docusate sodium 100 mg capsule 100 mg PO BID 05/21/24 06/29/24 Unknown History insulin aspart U-100 100 unit/mL 10 unit subcut TIDWMEAL 05/21/24 06/29/24 Unknown History (3 mL) subcutaneous pen (Novolog FlexPen U-100 Insulin aspart) insulin glargine 100 unit/mL (3 18 unit subcut DAILY 05/21/24 06/29/24 Unknown History mL) subcutaneous pen (Basaglar KwikPen U-100 Insulin) levothyroxine 75 mcg tablet 75 mcg PO DAILY 05/21/24 06/29/24 Unknown History sacubitril 24 mg-valsartan 26 mg 1 tablet PO BID 05/21/24 06/29/24 Unknown History tablet (Entresto) vibegron 75 mg tablet (Gemtesa) 75 mg PO DAILY 05/21/24 06/29/24 Unknown History insulin aspart U-100 100 unit/mL See Rx Instructions .Route .COMPLEX 06/29/24 06/29/24 Unknown History (3 mL) subcutaneous pen (Novolog FlexPen U-100 Insulin aspart) magnesium oxide 400 mg (241.3 mg 400 mg PO DAILY 06/29/24 06/29/24 Unknown History magnesium) tablet metoprolol succinate 50 mg 50 mg PO DAILY 06/29/24 06/29/24 Unknown History tablet,extended release 24 hr midodrine 5 mg tablet 2.5 mg PO Q12H PRN Hypotension 06/29/24 06/29/24 Unknown History Allergies Allergy/AdvReac Type Severity Reaction Status Date / Time Sulfa (Sulfonamide Allergy Mild RASH Verified 06/28/24 15:44 Antibiotics) Review of Systems Review of Systems: All systems reviewed & are unremarkable except as noted in HPI and below PMFSH Past Medical History Medical History Atrial fibrillation Bacteremia Diabetes GERD (gastroesophageal reflux disease) HTN (hypertension) Hypothyroidism Overactive bladder Pacemaker Thrombocytopenia Surgical History Surgical History AICD (automatic cardioverter/defibrillator) present Family History Family History Other Unknown family medical history Social History Social History Smoking status: Former smoker Alcohol intake: never Substance use: current Substance use type: marijuana Do You Feel Safe in your Home?: Yes Lack of Transportation: No Lack of Food: Never True Current Housing: I Have Housing Concerned About Future Housing: No Difficulty Paying Gas/Electric Bills: No Difficulty Paying for Meds: No Currently Unemployed: No Education: Grade School Difficulty w/ Childcare or Family Care: No Gender identity (if verbalized by the patient): Female Spiritual care concerns: No Exam Narrative: APPEARANCE: Well appearing, no pain, no distress, well-nourished. HEAD: normocephalic, atraumatic. EYES: PERRLA/EOMI, conjunctivae clear. NOSE: Normal no drainage EARS:TMS clear with good light reflex. THROAT: Pharynx clear, no exudate. NECK: Supple. No adenopathy, no masses. RESPIRATORY: Airway patent, respirations nonlabored. Clear to auscultation bilaterally, no rales, rhonchi, wheezing. CARDIOVASCULAR: Regular rate and rhythm without murmurs rubs or gallops. ABDOMINAL: Soft, nontender, nondistended, normal bowel sounds MUSCULOSKELETAL: +1 edema on lower extremities bilaterally NEURO: Alert. Cranial nerves II through XII intact. Good gait. Good coordination SKIN: Multiple areas of excoriation Course Vital Signs Vital signs: Vital Signs Temperature 97.6 F 09/29/24 22:44 Pulse Rate 82 09/29/24 22:44 Respiratory Rate 20 09/29/24 22:44 Blood Pressure 118/81 09/29/24 22:44 Pulse Oximetry 100 09/29/24 22:44 Oxygen Delivery Room Air 09/29/24 22:44 Temperature 97.6 F 09/29/24 22:44 Pulse Rate 82 09/29/24 22:44 Respiratory Rate 20 09/29/24 22:44 Blood Pressure 118/81 09/29/24 22:44 Pulse Oximetry 100 09/29/24 22:44 Oxygen Delivery Room Air 09/29/24 22:44 Medical Decision Making Vital Signs Vital Signs: Vital Signs Temperature 97.6 F 09/29/24 22:44 Pulse Rate 82 09/29/24 22:44 Respiratory Rate 20 09/29/24 22:44 Blood Pressure 118/81 09/29/24 22:44 Pulse Oximetry 100 09/29/24 22:44 Oxygen Delivery Room Air 09/29/24 22:44 Temperature 97.6 F 09/29/24 22:44 Pulse Rate 82 09/29/24 22:44 Respiratory Rate 20 09/29/24 22:44 Blood Pressure 118/81 09/29/24 22:44 Pulse Oximetry 100 09/29/24 22:44 Oxygen Delivery Room Air 09/29/24 22:44 Discharge Plan Discharge Clinical Impression: Excoriation, Noncompliance with medications Patient Disposition: Home, Self-Care Condition: Stable Instructions: Antibiotic Form Additional Instructions: Benadryl as needed for intermittent itching. Do not pick at your wounds. Keep your skin well moisturized. Take your medications as directed including her water pill. Have close follow-up with your primary care physician. Patient Language: Swedish Prescriptions: No Action potassium chloride 20 mEq tablet,ER particles/crystals 20 meq PO DAILY nortriptyline 10 mg capsule 10 mg PO HS omeprazole 20 mg capsule,delayed release(DR/EC) 20 mg PO DAILY escitalopram oxalate 10 mg tablet 10 mg PO DAILY Xarelto 20 mg tablet 20 mg PO DAILY levothyroxine 75 mcg tablet 75 mcg PO DAILY docusate sodium 100 mg capsule 100 mg PO BID insulin aspart U-100 [Novolog FlexPen U-100 Insulin] 100 unit/mL (3 mL) insulin pen 10 unit SUBCUT TIDWMEAL Rx Instructions: sliding scale insulin glargine [Basaglar KwikPen U-100 Insulin] 100 unit/mL (3 mL) insulin pen 18 unit SUBCUT DAILY Entresto 24-26 mg tablet 1 tablet PO BID Gemtesa 75 mg tablet 75 mg PO DAILY metoprolol succinate 50 mg tablet extended release 24 hr 50 mg PO DAILY midodrine 5 mg tablet 2.5 mg PO Q12H PRN (Reason: Hypotension) magnesium oxide 400 mg (241.3 mg magnesium) tablet 400 mg PO DAILY insulin aspart U-100 [Novolog FlexPen U-100 Insulin] 100 unit/mL (3 mL) insulin pen See Rx Instructions .ROUTE .COMPLEX Rx Instructions: 16U breakfast, 13U lunch, 10U dinner Follow-up/Referrals: Zach,Oswaldo Rodriguez MD [Primary Care Provider] -
[2024-09-30] MEDS: FUROSEMIDE 40 MG TABLET PO (00:22)
--- NOTE | 2024-09-30 00:25 | ECG_ITS ---
Test Date: 2024-09-30 00:25:38 Measurements Intervals [place] Rate: 87 P: 0 [place]: 0 QRS: 132 QRSD: 138 T: 66 QT: 401 QTc: 484 Interpretive Statements ATRIAL FIBRILLATION INTRAVENTRICULAR CONDUCTION DELAY [130+ ms QRS DURATION] POSSIBLE ANTERIOR MYOCARDIAL INFARCTION , PROBABLY OLD [30 ms Q WAVE IN V3/V4, OR R < 0.2 mV IN V4] Compared to ECG 06/29/2024 01:29:13 no changes Electronically Signed On 09-30-2024 10:17:25 INTERVENTIONAL TECH by Shiloh Muhammad M.D.
--- OUTSIDE RECORDS SUMMARY | 2024-10-07 00:17 | XMS_ITS ---
Author Organization [facility] Address [address] [place], [place] [id number] Care Team Providers Care Refined Syrup Operator Name Role Phone MAGANAJOSUÉ Primary Care Provider Allergies Allergen (clinical drug ingredient) Drug/Non Drug Allergy documented on EMR Reaction Allergy Type Onset Date Status Substance with sulfonamide structure and antibacterial mechanism of action (substance) Sulfa Antibiotics Unknown Drug Allergy Active REASON FOR VISIT Endocarditis Medications Medication SIG (Take, Route, Frequency, Duration) Notes Start Date End Date Status Albuterol Sulfate HFA 108 (90 Base) MCG/ACT 2 puffs as needed Inhalation every 4 hrs Active Omeprazole 20 MG 1 capsule 1/2 to 1 h our before morning meal Orally Once a day Active Basaglar KwikPen 100 UNIT/ML 18 units Subcutaneous daily 08/09/2024 Active Furosemide 40 MG 1 tablet Orally Once a day Active Cefadroxil 500 MG 2 capsules Orally ev jolene 12 hrs for 30 days 08/09/2024 02/05/2025 Active Metoprolol Succinate ER 100 MG 1 tablet Orally Once a day Active NovoLOG FlexPen 100 UNIT/ML 10 units plus sliding scale Subcutaneous three times a day 08/09/2024 Active Entresto 24-26 MG 1 tablet Orally Twic e a day Active Docusate Sodium 100 MG 1 capsule as need ed Orally twice a day 08/09/2024 Active Xarelto 20 MG 1 tablet with food Orally Once a day Active Magnesium Oxide 400 MG 2 tablets Orally Once a day 08/09/2024 Active Vitamin D 125 MCG (5000 UT) 1 capsule Orally Once a day 08/09/2024 Active Ferrous Sulfate 325 (65 Fe) MG 1 tablet Orally Three times a Week Active Gemtesa 75 MG 1 tablet Orally Once a day 08/09/2024 Active Levothyroxine Sodium 75 MCG 1 tablet in the morning on an empty stomach Orally Once a day Active Escitalopram Oxalate 10 MG 1 tablet Oral ly Once a day Active Vital Signs Height 65 in 09/17/2024 Height-cm 165.1 cm 09/17/2024 The patient refused vitals Encounters Encounter Location Date Provider Diagnosis [facility] [address] [place], [place] [id number] 09/17/2024 JOSUÉ MAGANA Acute bacterial endocarditis I33.0 and Infection of implantable cardioverter-defibril lator (ICD) generator, initial encounter T82.7XXA Assessments Encounter Date Diagnosis (ICD Code) Assessment Notes Treatment Notes Treatment Clinical Notes Section Notes 09/17/2024 Acute bacterial endocarditis (ICD-10 - I33.0) After multiple attempts, the patient continues to refuse to communicate or be examined. Her sisters are advised that this significantly limits her evaluation and ultimately, her care. She will continue the lifelong antibiotics. Despite appropriate antibiotics, she may never have complete resolution of the TV vegetation. She is sent for CBC, ESR, CRP, and blood cultures. If negative, she will be medically cleared for a new PPM though her risk of infection on the new PPM will always be high despite suppressive antibiotic therapy. 09/17/2024 Infection of implantable cardioverter-def ibrillator (ICD) generator, initial encounter (ICD-10 - T82.7XXA) As above. She will follow up with the fire control assistant. Plan Of Treatment Treatment Notes Assessment Notes Acute bacterial endocarditis After multi ple attempts, the patient continues to refuse to communicate or be examined. Her sisters are advised that this significantly limits her evaluation and ultimately, her care. She will continue the lifelong antibiotics. Despite appropriate antibiotics, she may never have complete resolution of the TV vegetation. She is sent for CBC, ESR, CRP, and blood cultures. If negative, she will be medically cleared for a new PPM though her risk of infection on the new PPM will always be high despite suppressive antibiotic therapy. Infection of implantable cardioverter-defibrillator (ICD) generator, initial encounter As above. She will follow up with the fire control assistant. Next Appt Details Follow Up: 3 Months, Reason: Provider Name:JOSUÉ Mills, 12/17/2024 02:30:00 PM, [address] [facility] [address], [place], [place], [id number], Progress Notes * Daria RODRIGUEZOB:[birth year] (63 yo F)Acc No.[id number]:09/17/2024 Progress Notes Patient:?Loretta RODRIGUEZ Provider:?Josué Magana M.D. :1960???Age:63 Y???Sex:Female D ate:09/17/2024 Address:[address] [place], [place] [id number] Subjective: * Chief Complaints: * ???Endocarditis * HPI: ???Routine:?Ms. Rodriguez is a 63 year old woman who presents with two of her sisters for a one month?follow up and infectious disease consultation. She has an intellectual disability and is unable to make her own medical decisions. The history is obtained through her, her sisters, and hospital records. She is angry, loud, cursing, and yelling I hate you and I want a pacemaker repeatedly. She refuses to go in an exam room and hides in the bathroom with the door open refusing vitals or a physical examination. She has a history of a dilated cardiomyopathy, atrial fibrillation, ventricular fibbrilation, and ventricular tachycardia and had an AICD placed years ago which occasionally would go off when she went into an abnormal rhythm. She went to an outside hospital on 05/20/24 with symptoms of an acute gastroenteritis. While there, she had MSSA bacteremia with a negative echocardiogram. Her cultures sterilized rapidly and due to her inability to do home health, she was kept in the hospital and given IV ancef from 05/25 until 06/21/24. Shortly thereafter, she was readmitted with chest and back pain. She was found to have MSSA bacteremia again with a vegetation on her AICD leads and TV valve. She had a negative blood culture on 07/07/24 on IV ancef and her AICD was removed on 06/28/24. She was given Dalbavancin on 07/25 and 08/03 and was discharged home on oral cefadroxil. She did not require repair of her TV. 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 Given her heart arrythmias, she requires a life vest, which she has stopped wearing. The plan from the surgeon and hospital infectious disease team is to redo a CHANCE in late August and it the TV lesion is improved/resolved, place a new AICD. 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 Her WBC was always normal and her last ESR was 41 and CRP was 14.9. * ROS:?Gen: Good health, No sleep Problems, No fever, No weight loss, Mild Fatigue Skin: No rash, No itching HEENT: No headaches, No sinus congestion, No sore throat, No allergies, No hearing changes, No vision changes Respiratory: No cough, No SOB, No wheezing Cardiology: No chest pain, No palpitations, No lower extremity edema, No dizziness GI: No abdominal pain, No nausea, No diarrhea/constipation, No blood in the stools, No heartburn : No urinary frequency, No discharge, No dysuria, No hematuria Heme: No abnormal bleeding, No easy bruising, No swollen glands Musculoskeletal: No arthritis, No weakness Psych: No anxiety, Positive depression PET: 07/23/24 - Negative SPECT: 07/17/24 - Global hypokinesis, EF 21%, no ischemia CHANCE: 07/27/24 - TV vegetation, Retained pulmonary artery lead, dilated cardiomyopathy, EF 20-25%. * Medical History:? * Surgical History:?Cholecyste ctomy AICD placement then removal * Hospitalization/Major Diagno stic Procedure:? * Family History:?Father: dece ased.?Mother: .? * Social History:?She lives alone but receives help with all of her ADLs by her sisters. She denies tobacco, alcohol, or illicit drug use. * Medications:?TakingEscitalop jacob Oxalate 10 MG Tablet 1 tablet Orally Once a day Ferrous Sulfate 325 (65 Fe) MG Tablet Delayed Release 1 tablet Orally Three times a Week Magnesium Oxide 400 MG Tablet 2 tablets Orally Once a day Vitamin D 125 MCG (5000 UT) Capsule 1 capsule Orally Once a day Gemtesa 75 MG Tablet 1 tablet Orally Once a day Levothyroxine Sodium 75 MCG Tablet 1 tablet in the morning on an empty stomach Orally Once a day Docusate Sodium 100 MG Capsule 1 capsule as needed Orally twice a day Xarelto 20 MG Tablet 1 tablet with food Orally Once a day NovoLOG FlexPen 100 UNIT/ML Solution Pen-injector 10 units plus sliding scale Subcutaneous three times a day Entresto 24-26 MG Tablet 1 tablet Orally Twice a day Metoprolol Succinate ER 100 MG Tablet Extended Release 24 Hour 1 tablet Orally Once a day Basaglar KwikPen 100 UNIT/ML Solution Pen-injector 18 units Subcutaneous daily Furosemide 40 MG Tablet 1 tablet Orally Once a day Albuterol Sulfate HFA 108 (90 Base) MCG/ACT Aerosol Solution 2 puffs as needed Inhalation every 4 hrs Omeprazole 20 MG Capsule Delayed Release 1 capsule 1/2 to 1 hour before morning meal Orally Once a day Cefadroxil 500 MG Capsule 2 capsules Orally every 12 hrs , stop date 02/05/2025Medication List reviewed and reconciled with the patientTaking Escitalopram Oxalate 10 MG Tablet 1 tablet Orally Once a day Taking Ferrous Sulfate 325 (65 Fe) MG Tablet Delayed Release 1 tablet Orally Three times a Week Taking Magnesium Oxide 400 MG Tablet 2 tablets Orally Once a day Taking Vitamin D 125 MCG (5000 UT) Capsule 1 capsule Orally Once a day Taking Gemtesa 75 MG Tablet 1 tablet Orally Once a day Taking Levothyroxine Sodium 75 MCG Tablet 1 tablet in the morning on an empty stomach Orally Once a day Taking Docusate Sodium 100 MG Capsule 1 capsule as needed Orally twice a day Taking Xarelto 20 MG Tablet 1 tablet with food Orally Once a day Taking NovoLOG FlexPen 100 UNIT/ML Solution Pen-injector 10 units plus sliding scale Subcutaneous three times a day Taking Entresto 24-26 MG Tablet 1 tablet Orally Twice a day Taking Metoprolol Succinate ER 100 MG Tablet Extended Release 24 Hour 1 tablet Orally Once a day Taking Basaglar KwikPen 100 UNIT/ML Solution Pen-injector 18 units Subcutaneous daily Taking Furosemide 40 MG Tablet 1 tablet Orally Once a day Taking Albuterol Sulfate HFA 108 (90 Base) MCG/ACT Aerosol Solution 2 puffs as needed Inhalation every 4 hrs Taking Omeprazole 20 MG Capsule Delayed Release 1 capsule 1/2 to 1 hour before morning meal Orally Once a day Taking Cefadroxil 500 MG Capsule 2 capsules Orally every 12 hrs , stop date 02/05/2025Medication List reviewed and reconciled with the patient * Allergies:?Sulfa Antibiotics no[Allergies Verified] Objective: * Vitals:?Ht: 65 in, Ht-cm: 16 5.1 cm. The patient refused vitals. * Physical Examination:?Overweight, loud, screaming vulgarities, refuses exam. Walks slowly with a rolling walker. Assessment: * Assessment: 1.?Acute bacterial endocardi tis - I33.0 (Primary)???2.?Infection of implantable cardioverter-defibrillator (ICD) generator, initial encounter - T82.7XXA??? Plan: * Treatment: 2.?Infection of implantable cardioverter-defibrillator (ICD) generator, initial encounter? Notes: As above. She will follow up with the fire control assistant.?? * Procedure Codes:? * Follow Up:?3 Months * Billing Information: * Visit Code:? 53023 Office Visit, Est Pt., Level 3. * Procedure Codes:? * NE COMPRESSOR OPERATOR Sign off status: Completed true * Provider:?Josué Magana M.D. Date:? 09/17/2024 Generated for Howard wang/Latoya/eTanahysmitting on:?10/07/2024 12:17 AM BUTANE COMPRESSOR OPERATOR History and Physical Notes * HPI (History of Present Illness) Category Sub-Category Detail Notes Category Not es Routine Ms. Rodriguez is a 63 year old woman who presents with two of her sisters for a one month follow up and infectious disease consultation. She has an intellectual disability and is unable to make her own medical decisions. The history is obtained through her, her sisters, and hospital records. She is angry, loud, cursing, and yelling I hate you and I want a pacemaker repeatedly. She refuses to go in an exam room and hides in the bathroom with the door open refusing vitals or a physical examination. She has a history of a dilated cardiomyopathy, atrial fibrillation, ventricular fibbrilation, and ventricular tachycardia and had an AICD placed years ago which occasionally would go off when she went into an abnormal rhythm. She went to an outside hospital on 05/20/24 with symptoms of an acute gastroenteritis. While there, she had MSSA bacteremia with a negative echocardiogram. Her cultures sterilized rapidly and due to her inability to do home health, she was kept in the hospital and given IV ancef from 05/25 until 06/21/24. Shortly thereafter, she was readmitted with chest and back pain. She was found to have MSSA bacteremia again with a vegetation on her AICD leads and TV valve. She had a negative blood culture on 07/07/24 on IV ancef and her AICD was removed on 06/28/24. She was given Dalbavancin on 07/25 and 08/03 and was discharged home on oral cefadroxil. She did not require repair of her TV. 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 Given her heart arrythmias, she requires a life vest, which she has stopped wearing. The plan from the surgeon and hospital infectious disease team is to redo a CHANCE in late August and it the TV lesion is improved/resolved, place a new AICD. 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 Her WBC was always normal and her last ESR was 41 and CRP was 14.9. Physical Examination Category Sub-Category Detail Notes Section Note s Overweight, zoie d, screaming vulgarities, refuses exam. Walks slowly with a rolling walker.
--- OUTSIDE RECORDS SUMMARY | 2024-10-07 00:17 | XMS_ITS | Data Portability ---
Author Organization [facility], Main Office Address [address] [place] [address] Assessment Encounter Date Assessment Date Assessment LastModified by Organization Details LastModified Time 11/16/2023 11/16/2023 Assessment: Very severe OSAHS, AHI = 46 PLMD Plan: The following were reviewed and explained to the patient: primary care/referral note [facility] home sleep study 07/09/22 AHI = 46 [facility] titration sleep study 10/30/23 Respironics small DreamWear nasal mask @ 14 cmH2O Elevation in periodic limb movement index may be contributed by escitalopram and nortriptyline. Non-pharmacologic therapy options for periodic limb movement disorder include avoidance of aggravating drugs and substances, mental alerting activities, short daily hemodialysis for patients in renal failure, exercise, leg massage, stretching calf muscles, use of a weighted blanket and applied heat. Patient will cut down on caffeine intake. We will check BUN, Creatinine, Vitamin E, Vitamin B12, RBC folate, Iron, TIBC, Ferritin, ESR, Magnesium, Hgb and Hct levels. Educated the patient on problems and solutions associated with positive airway pressure (PAP) use. Difficulty tolerating pressure, mask leaks, intolerance of interface, nasal congestion, claustrophobic response, dry mouth, and unintentional mask removal during sleep were covered. Dry mouth is a normal occurrence for people who just start out on PAP therapy because they are not used to air blowing in to the throat to hold open. Dry mouth is exacerbated for people who wear nasal PAP mask and whose jaw drops open during sleep. Not only does this create a much less efficient therapy because of leakage, it also causes dry mouth. There are a couple solutions to help prevent this type of problem. A simple solution would be to wear a chinstrap which essentially holds the jaw in place. A second solution would be a switch to a full face mask which covers both the nose and mouth. Although this is another easy solution, using a full face mask for some could seem claustrophobic or confining. There is no silver bullet solution as no single mask is right for everybody. Sometimes it takes a bit of experimentation to find a PAP mask which best meets the patient's needs as well as fits comfortably. Another tactic is to use a humidifier on your PAP machine. Most new PAP machines have integrated humidifiers. Humidification is vaz when dealing with symptoms of dry mouth because the humidifier can supply both warm and room temperate air. Even a small amount of humidity in the airflow will help nasal passages to stay hydrated. If a person is using both a full face mask and a PAP machine with a heated humidifier and is still experiencing dry mouth, an ill-fitted PAP mask might be causing the problem. Leakage can be caused by a mask that is to large or small, the wrong style mask, the cushion is degraded or simply because the mask's straps aren't adjusted correctly. If leakage occurs, dry air from the room can leak in while humidification escapes. The result is reduced humidification within the circuit and resulting in dry throat and mouth. Finally, beyond factors involving the PAP machine and mask, dry mouth can also be caused or worsened by dehydration. The general recommendation to during eight 8 oz. glasses of water a day might be too little for many people. When people drink large amounts of coffee or other caffeine beverages, or sweat a lot during the day, making sure to rehydrate is an important part of PAP therapy. ResMed Air Sense 11 auto set unit with heated humidifier, supplies, Respironics small DreamWear nasal mask @ 14 cmH2O ordered. Further titration will be based on clinical response. Provided the patient with a list of local home care stores where positive airway pressure (PAP) units, accoutrement, and services are available. Home care store selection is based on patient's insurance carrier. Patient will setup an appointment with [facility] for supplies and pressure adjustments. A major predictor of success with use of PAP is follow-up with both the respiratory supplier and the treating physician. The respiratory supplier optimally will follow-up within two weeks after starting use while the treating physician optimally will follow-up within 90 days after starting therapy to assess adherence and effectiveness of treatment. The download results can show the treating physician information about adherence to treatment, residual AHI while on treatment and presence of large mask leakage. This information is especially helpful if the patient has residual sleepiness despite treatment. General information on sleep disordered breathing, evaluation of sleep disordered breathing, treatment with PAP therapy, and living with PAP therapy were covered. We discussed with the patient the impact of weight on: Sleep disordered breathing DM Hyperlipidemia Hypertension CAD CHF DEE Urge urinary incontinence We discussed with the patient the benefit of PAP therapy on: Sleep disordered breathing DM Hypertension Atrial fibrillation CHF DEE Urge urinary incontinence Educated the patient on sleep hygiene measures. Relaxing rituals to rest easy, understanding foods with positive and negative impact on sleep, creating a peaceful sleep environment, timing of exercise, using herbal sleep aids, and practicing sleep-friendly meditation were covered. To determine how much sleep is needed, the patient will assess where she falls on the spectrum, examine what lifestyle factors such as work schedules and stress are affecting the quality and quantity of sleep. In general, adults need 7-9 hours of sleep. Educated the patient regarding foods that promote sleep. These include but are not limited to cherries, bananas, toast, oatmeal, and warm milk. Educated the patient regarding foods and drinks to avoid before bedtime. These include but are not limited to aged cheese, chocolate, spicy foods, tomato-based sauces, soy, ginseng tea and processed meat. Advocated influenza vaccination annually and pneumonia vaccination MARCIA. Advocated weight loss through diet and exercise. Patient's ideal body weight according to height and gender is up to 130 lbs. Encouraged patient to adjust caloric intake to maintain/achieve ideal body weight, emphasizing on fruits, vegetables, whole grains, and fat-free or low-fat products. These include lean meats, poultry, fish, beans, eggs, and nuts and foods that are low in saturated fats, trans-fats, cholesterol, salt (sodium), and glycemic index. Stressed the importance of regular exercise up to the patient's capacity limits. In this case, we recommend regular (4 x a week or more) walking or other light activity. Patient to monitor BP daily and bring records to PCP for further management. Follow-up: 3 weeks Not available 11/16/2023 15:42:05 12/27/2023 12/27/2023 Assessment: Iron deficiency Vit E deficiency Erythrocytosis Very severe OSAHS, AHI = 46 Plan: The following were reviewed and explained to the patient: [facility] home sleep study 07/09/22 AHI = 46 [facility] titration sleep study 10/30/23 Respironics small DreamWear nasal mask @ 14 cmH2O Ferritin 11/16/23 41 ng/mL Hgb 11/16/23 16.4 gm% Hct 11/16/23 48.1% BUN 11/16/23 24 mg% Alpha tocopherol 11/16/23 8.5 mg/L Gamma tocopherol 11/16/23 2.6 mg/L Elevation in periodic limb movement index may be contributed by escitalopram and nortriptyline. Non-pharmacologic therapy options for periodic limb movement disorder include avoidance of aggravating drugs and substances, mental alerting activities, short daily hemodialysis for patients in renal failure, exercise, leg massage, stretching calf muscles, use of a weighted blanket and applied heat. Patient will cut down on caffeine intake. Creatinine, Vitamin B12, RBC folate, Iron, TIBC, ESR, and Magnesium are within normal limits. Patient will take Vitamin E 200 IU/day to keep the alpha tocopherol > 9.0 mg/L and to keep the gamma tocopherol > 0.5 mg/L. Patient will take FeSO4 325 mg + Vit C 500 mg daily to keep the ferritin > 75 ng/ml. We will hold off on dopaminergic therapy for now. Educated the patient on problems and solutions associated with positive airway pressure (PAP) use. Difficulty tolerating pressure, mask leaks, intolerance of interface, nasal congestion, claustrophobic response, dry mouth, and unintentional mask removal during sleep were covered. Dry mouth is a normal occurrence for people who just start out on PAP therapy because they are not used to air blowing in to the throat to hold open. Dry mouth is exacerbated for people who wear nasal PAP mask and whose jaw drops open during sleep. Not only does this create a much less efficient therapy because of leakage, it also causes dry mouth. There are a couple solutions to help prevent this type of problem. A simple solution would be to wear a chinstrap which essentially holds the jaw in place. A second solution would be a switch to a full face mask which covers both the nose and mouth. Although this is another easy solution, using a full face mask for some could seem claustrophobic or confining. There is no silver bullet solution as no single mask is right for everybody. Sometimes it takes a bit of experimentation to find a PAP mask which best meets the patient's needs as well as fits comfortably. Another tactic is to use a humidifier on your PAP machine. Most new PAP machines have integrated humidifiers. Humidification is vaz when dealing with symptoms of dry mouth because the humidifier can supply both warm and room temperate air. Even a small amount of humidity in the airflow will help nasal passages to stay hydrated. If a person is using both a full face mask and a PAP machine with a heated humidifier and is still experiencing dry mouth, an ill-fitted PAP mask might be causing the problem. Leakage can be caused by a mask that is to large or small, the wrong style mask, the cushion is degraded or simply because the mask's straps aren't adjusted correctly. If leakage occurs, dry air from the room can leak in while humidification escapes. The result is reduced humidification within the circuit and resulting in dry throat and mouth. Finally, beyond factors involving the PAP machine and mask, dry mouth can also be caused or worsened by dehydration. The general recommendation to during eight 8 oz. glasses of water a day might be too little for many people. When people drink large amounts of coffee or other caffeine beverages, or sweat a lot during the day, making sure to rehydrate is an important part of PAP therapy. Provided the patient with a list of local home care stores where positive airway pressure (PAP) units, accoutrement, and services are available. Home care store selection is based on patient's insurance carrier. Patient will setup an appointment with [facility] for supplies and pressure adjustments. A major predictor of success with use of PAP is follow-up with both the respiratory supplier and the treating physician. The respiratory supplier optimally will follow-up within two weeks after starting use while the treating physician optimally will follow-up within 90 days after starting therapy to assess adherence and effectiveness of treatment. The download results can show the treating physician information about adherence to treatment, residual AHI while on treatment and presence of large mask leakage. This information is especially helpful if the patient has residual sleepiness despite treatment. General information on sleep disordered breathing, evaluation of sleep disordered breathing, treatment with PAP therapy, and living with PAP therapy were covered. We discussed with the patient the impact of weight on: Sleep disordered breathing DM Hyperlipidemia Hypertension CAD CHF DEE Urge urinary incontinence We discussed with the patient the benefit of PAP therapy on: Sleep disordered breathing DM Hypertension Atrial fibrillation CHF DEE Urge urinary incontinence Educated the patient on sleep hygiene measures. Relaxing rituals to rest easy, understanding foods with positive and negative impact on sleep, creating a peaceful sleep environment, timing of exercise, using herbal sleep aids, and practicing sleep-friendly meditation were covered. To determine how much sleep is needed, the patient will assess where she falls on the spectrum, examine what lifestyle factors such as work schedules and stress are affecting the quality and quantity of sleep. In general, adults need 7-9 hours of sleep. Educated the patient regarding foods that promote sleep. These include but are not limited to cherries, bananas, toast, oatmeal, and warm milk. Educated the patient regarding foods and drinks to avoid before bedtime. These include but are not limited to aged cheese, chocolate, spicy foods, tomato-based sauces, soy, ginseng tea and processed meat. Advocated influenza vaccination annually and pneumonia vaccination MARCIA. Advocated weight loss through diet and exercise. Patient's ideal body weight according to height and gender is up to 130 lbs. Encouraged patient to adjust caloric intake to maintain/achieve ideal body weight, emphasizing on fruits, vegetables, whole grains, and fat-free or low-fat products. These include lean meats, poultry, fish, beans, eggs, and nuts and foods that are low in saturated fats, trans-fats, cholesterol, salt (sodium), and glycemic index. Stressed the importance of regular exercise up to the patient's capacity limits. In this case, we recommend regular (4 x a week or more) walking or other light activity. Patient to monitor BP daily and bring records to PCP for further management. Follow-up: 3 months, March 2024 Not available 12/27/2023 12:47:13 02/29/2024 02/29/2024 Assessment: Iron deficiency Vit E deficiency Erythrocytosis Very severe OSAHS, AHI = 46 Plan: The following were reviewed and explained to the patient: [facility] home sleep study 07/09/22 AHI = 46 [facility] titration sleep study 10/30/23 Respironics small DreamWear nasal mask @ 14 cmH2O Ferritin 11/16/23 41 ng/mL Hgb 11/16/23 16.4 gm% Hct 11/16/23 48.1% BUN 11/16/23 24 mg% Alpha tocopherol 11/16/23 8.5 mg/L Gamma tocopherol 11/16/23 2.6 mg/L Elevation in periodic limb movement index may be contributed by escitalopram and nortriptyline. Non-pharmacologic therapy options for periodic limb movement disorder include avoidance of aggravating drugs and substances, mental alerting activities, short daily hemodialysis for patients in renal failure, exercise, leg massage, stretching calf muscles, use of a weighted blanket and applied heat. Patient will cut down on caffeine intake. Creatinine, Vitamin B12, RBC folate, Iron, TIBC, ESR, and Magnesium are within normal limits. Patient will continue Vitamin E 200 IU/day to keep the alpha tocopherol > 9.0 mg/L and to keep the gamma tocopherol > 0.5 mg/L. Patient will continue FeSO4 325 mg + Vit C 500 mg daily to keep the ferritin > 75 ng/ml. Check ferritin and Vit E one week before return. We will hold off on dopaminergic therapy for now. PAP compliance downloaded and interpreted x 20 minutes. Data reviewed and explained to the patient. Average apnea/hypopnea index (AHI) is 40.6 Patient used PAP > 4 hours 0% of the time. PAP is set at 14 cmH2O. PAP will be reset at 15-20 cmH2O. Keep ramp start @ 5 cmH2O. Keep ramp duration @ 20 minutes. Keep humidifier level @ 4. Keep tube temperature @ 76 F. Oxygen supplementation: none Patient is benefiting from PAP therapy. Encouraged patient to maintain PAP use more than 70% of the time. Statement of PAP use and benefits will be sent to the home care store. Patient will change to an [id number] mask. Educated the patient on problems and solutions associated with positive airway pressure (PAP) use. Difficulty tolerating pressure, mask leaks, intolerance of interface, nasal congestion, claustrophobic response, dry mouth, and unintentional mask removal during sleep were covered. Dry mouth is a normal occurrence for people who just start out on PAP therapy because they are not used to air blowing in to the throat to hold open. Dry mouth is exacerbated for people who wear nasal PAP mask and whose jaw drops open during sleep. Not only does this create a much less efficient therapy because of leakage, it also causes dry mouth. There are a couple solutions to help prevent this type of problem. A simple solution would be to wear a chinstrap which essentially holds the jaw in place. A second solution would be a switch to a full face mask which covers both the nose and mouth. Although this is another easy solution, using a full face mask for some could seem claustrophobic or confining. There is no silver bullet solution as no single mask is right for everybody. Sometimes it takes a bit of experimentation to find a PAP mask which best meets the patient's needs as well as fits comfortably. Another tactic is to use a humidifier on your PAP machine. Most new PAP machines have integrated humidifiers. Humidification is vaz when dealing with symptoms of dry mouth because the humidifier can supply both warm and room temperate air. Even a small amount of humidity in the airflow will help nasal passages to stay hydrated. If a person is using both a full face mask and a PAP machine with a heated humidifier and is still experiencing dry mouth, an ill-fitted PAP mask might be causing the problem. Leakage can be caused by a mask that is to large or small, the wrong style mask, the cushion is degraded or simply because the mask's straps aren't adjusted correctly. If leakage occurs, dry air from the room can leak in while humidification escapes. The result is reduced humidification within the circuit and resulting in dry throat and mouth. Finally, beyond factors involving the PAP machine and mask, dry mouth can also be caused or worsened by dehydration. The general recommendation to during eight 8 oz. glasses of water a day might be too little for many people. When people drink large amounts of coffee or other caffeine beverages, or sweat a lot during the day, making sure to rehydrate is an important part of PAP therapy. Provided the patient with a list of local home care stores where positive airway pressure (PAP) units, accoutrement, and services are available. Home care store selection is based on patient's insurance carrier. Patient will setup an appointment with [facility] for supplies and pressure adjustments. A major predictor of success with use of PAP is follow-up with both the respiratory supplier and the treating physician. The respiratory supplier optimally will follow-up within two weeks after starting use while the treating physician optimally will follow-up within 90 days after starting therapy to assess adherence and effectiveness of treatment. The download results can show the treating physician information about adherence to treatment, residual AHI while on treatment and presence of large mask leakage. This information is especially helpful if the patient has residual sleepiness despite treatment. General information on sleep disordered breathing, evaluation of sleep disordered breathing, treatment with PAP therapy, and living with PAP therapy were covered. We discussed with the patient the impact of weight on: Sleep disordered breathing DM Hyperlipidemia Hypertension CAD CHF DEE Urge urinary incontinence We discussed with the patient the benefit of PAP therapy on: Sleep disordered breathing DM Hypertension Atrial fibrillation CHF DEE Urge urinary incontinence Educated the patient on sleep hygiene measures. Relaxing rituals to rest easy, understanding foods with positive and negative impact on sleep, creating a peaceful sleep environment, timing of exercise, using herbal sleep aids, and practicing sleep-friendly meditation were covered. To determine how much sleep is needed, the patient will assess where she falls on the spectrum, examine what lifestyle factors such as work schedules and stress are affecting the quality and quantity of sleep. In general, adults need 7-9 hours of sleep. Educated the patient regarding foods that promote sleep. These include but are not limited to cherries, bananas, toast, oatmeal, and warm milk. Educated the patient regarding foods and drinks to avoid before bedtime. These include but are not limited to aged cheese, chocolate, spicy foods, tomato-based sauces, soy, ginseng tea and processed meat. Advocated influenza vaccination annually and pneumonia vaccination MARCIA. Advocated weight loss through diet and exercise. Patient's ideal body weight according to height and gender is up to 130 lbs. Encouraged patient to adjust caloric intake to maintain/achieve ideal body weight, emphasizing on fruits, vegetables, whole grains, and fat-free or low-fat products. These include lean meats, poultry, fish, beans, eggs, and nuts and foods that are low in saturated fats, trans-fats, cholesterol, salt (sodium), and glycemic index. Stressed the importance of regular exercise up to the patient's capacity limits. In this case, we recommend regular (4 x a week or more) walking or other light activity. Patient to monitor BP daily and bring records to PCP for further management. Follow-up: 3 months, May 2024 Not available 04/15/2024 16:06:23 08/30/2024 08/30/2024 Assessment: Iron deficiency Vit E deficiency Erythrocytosis Very severe OSAHS, AHI = 46 Plan: The following were reviewed and explained to the patient: [facility] home sleep study 07/09/22 AHI = 46 [facility] titration sleep study 10/30/23 Respironics small DreamWear nasal mask @ 14 cmH2O BUN 11/16/23 24 mg% Hgb 11/16/23 16.4 gm% Hct 11/16/23 48.1% Ferritin 11/16/23 41 ng/mL Ferritin 08/30/24 62 ng/mL Alpha tocopherol 11/16/23 8.5 mg/L Alpha tocopherol 08/30/24 7.9 mg/L Gamma tocopherol 11/16/23 2.6 mg/L Gamma tocopherol 08/30/24 1.6 mg/L Elevation in periodic limb movement index may be contributed by escitalopram and nortriptyline. Non-pharmacologic therapy options for periodic limb movement disorder include avoidance of aggravating drugs and substances, mental alerting activities, short daily hemodialysis for patients in renal failure, exercise, leg massage, stretching calf muscles, use of a weighted blanket and applied heat. Patient will cut down on caffeine intake. Creatinine, Vitamin B12, RBC folate, Iron, TIBC, ESR, and Magnesium are within normal limits. Patient will continue Vitamin E 200 IU/day to keep the alpha tocopherol > 9.0 mg/L and to keep the gamma tocopherol > 0.5 mg/L. Patient will continue FeSO4 325 mg + Vit C 500 mg daily to keep the ferritin > 75 ng/ml. Check ferritin and Vit E one week before return. We will hold off on dopaminergic therapy for now. PAP compliance downloaded and interpreted x 20 minutes. Data reviewed and explained to the patient. Average apnea/hypopnea index (AHI) is 12.5. Patient used PAP > 4 hours 0% of the time. PAP is set at 15-20 cmH2O. PAP will be reset at 11-16 cmH2O. Keep EPR +2 ramp only. Keep ramp start @ 4 cmH2O. Keep ramp duration @ 20 minutes. Keep humidifier level @ 4. Keep tube temperature @ 76 F. Oxygen supplementation: none Patient is benefiting from PAP therapy. Encouraged patient to maintain PAP use more than 70% of the time. Statement of PAP use and benefits will be sent to the home care store. Patient will change to an [id number] mask. Educated the patient on problems and solutions associated with positive airway pressure (PAP) use. Difficulty tolerating pressure, mask leaks, intolerance of interface, nasal congestion, claustrophobic response, dry mouth, and unintentional mask removal during sleep were covered. Dry mouth is a normal occurrence for people who just start out on PAP therapy because they are not used to air blowing in to the throat to hold open. Dry mouth is exacerbated for people who wear nasal PAP mask and whose jaw drops open during sleep. Not only does this create a much less efficient therapy because of leakage, it also causes dry mouth. There are a couple solutions to help prevent this type of problem. A simple solution would be to wear a chinstrap which essentially holds the jaw in place. A second solution would be a switch to a full face mask which covers both the nose and mouth. Although this is another easy solution, using a full face mask for some could seem claustrophobic or confining. There is no silver bullet solution as no single mask is right for everybody. Sometimes it takes a bit of experimentation to find a PAP mask which best meets the patient's needs as well as fits comfortably. Another tactic is to use a humidifier on your PAP machine. Most new PAP machines have integrated humidifiers. Humidification is vaz when dealing with symptoms of dry mouth because the humidifier can supply both warm and room temperate air. Even a small amount of humidity in the airflow will help nasal passages to stay hydrated. If a person is using both a full face mask and a PAP machine with a heated humidifier and is still experiencing dry mouth, an ill-fitted PAP mask might be causing the problem. Leakage can be caused by a mask that is to large or small, the wrong style mask, the cushion is degraded or simply because the mask's straps aren't adjusted correctly. If leakage occurs, dry air from the room can leak in while humidification escapes. The result is reduced humidification within the circuit and resulting in dry throat and mouth. Finally, beyond factors involving the PAP machine and mask, dry mouth can also be caused or worsened by dehydration. The general recommendation to during eight 8 oz. glasses of water a day might be too little for many people. When people drink large amounts of coffee or other caffeine beverages, or sweat a lot during the day, making sure to rehydrate is an important part of PAP therapy. Provided the patient with a list of local home care stores where positive airway pressure (PAP) units, accoutrement, and services are available. Home care store selection is based on patient's insurance carrier. Patient will setup an appointment with [facility] for supplies and pressure adjustments. A major predictor of success with use of PAP is follow-up with both the respiratory supplier and the treating physician. The download results can show the treating physician information about adherence to treatment, residual AHI while on treatment and presence of large mask leakage. This information is especially helpful if the patient has residual sleepiness despite treatment. General information on sleep disordered breathing, evaluation of sleep disordered breathing, treatment with PAP therapy, and living with PAP therapy were covered. We discussed with the patient the impact of weight on: Sleep disordered breathing DM Hyperlipidemia Hypertension CAD CHF DEE Urge urinary incontinence We discussed with the patient the benefit of PAP therapy on: Sleep disordered breathing DM Hypertension Atrial fibrillation CHF DEE Urge urinary incontinence Educated the patient on sleep hygiene measures. Relaxing rituals to rest easy, understanding foods with positive and negative impact on sleep, creating a peaceful sleep environment, timing of exercise, using herbal sleep aids, and practicing sleep-friendly meditation were covered. To determine how much sleep is needed, the patient will assess where she falls on the spectrum, examine what lifestyle factors such as work schedules and stress are affecting the quality and quantity of sleep. In general, adults need 7-9 hours of sleep. Educated the patient regarding foods that promote sleep. These include but are not limited to cherries, bananas, toast, oatmeal, and warm milk. Educated the patient regarding foods and drinks to avoid before bedtime. These include but are not limited to aged cheese, chocolate, spicy foods, tomato-based sauces, soy, ginseng tea and processed meat. Advocated influenza vaccination annually and pneumonia vaccination MARCIA. Advocated weight loss through diet and exercise. Patient's ideal body weight according to height and gender is up to 130 lbs. Encouraged patient to adjust caloric intake to maintain/achieve ideal body weight, emphasizing on fruits, vegetables, whole grains, and fat-free or low-fat products. These include lean meats, poultry, fish, beans, eggs, and nuts and foods that are low in saturated fats, trans-fats, cholesterol, salt (sodium), and glycemic index. Stressed the importance of regular exercise up to the patient's capacity limits. In this case, we recommend regular (4 x a week or more) walking or other light activity. Patient to monitor BP daily and bring records to PCP for further management. Follow-up: 3 months, November 2024 Not available 09/11/2024 18:06:16 Plan of Treatment Reminders Order Date Submit Date Provider Last Modified By Organization Details Last Modified Time Details Appointments Any 30 2024 01:30P Ciara Hernandez MD Not available Not available Not available Lab iron + TIBC + ferritin, serum 2023 024 [facility] (Lab), [address] [place], [address], 11/17/2023 18:22:12 folate, RBC 2023 024 [facility] (Lab), [address] [place], [address], 11/30/2023 05:13:29 vitamin B12, serum 2023 024 [facility] (Lab), [address] [place], [address], 11/17/2023 18:22:12 ESR (erythroc yte sedimenta tion rate), blood 2023 024 [facility] (Lab), [address] [place], [address], 11/17/2023 18:22:12 hemoglobi n + hematocri t, blood [id number] [place] [address] (Lab), [address] [place], [address], 02/21/2024 11:05:08 bun (blood urea nitrogen) , serum or plasma [email or web address] [place] [address] (Lab), [address] [place], [address], 02/21/2024 11:05:08 creatinin e, serum or plasma 2023 024 [id number] 5 [facility] (Lab), [address] [place], [address], 02/21/2024 11:05:08 magnesium , serum or plasma 2023 024 [id number] 5 [facility] (Lab), [address] [place], [address], 02/21/2024 11:05:08 vitamin E, serum 2023 024 YONATAN [facility] (Lab), [address] [place], [address], 11/30/2023 05:13:29 ferritin, serum or plasma 2023 024 [id number] 5 [facility] Outpatient Lab, [address] [place], [address], 03/07/2024 09:26:38 vitamin E, serum 2023 024 [id number] 5 [facility]patient Lab, [address] [place], [address], 03/07/2024 09:26:38 ferritin, serum or plasma 2023 024 [email or web address] 2 [facility] - Outpatient Lab, [address] [place], [address], 08/22/2024 10:55:53 vitamin E, serum 2023 024 [id number] 2 [facility] - Outpatient Lab, [address] [place], [address], 08/22/2024 10:55:53 ferritin, serum or plasma 2023 025 [facility] Outpatient Lab, [address] [place], [address], 08/30/2024 15:41:21 vitamin E, serum [address] - Outpatient Lab, [address], [place], [address], 08/30/2024 15:41:21 Referral None recorded. Procedures None recorded. Surgeries None recorded. Imaging None recorded. Medication Orders Vitamin C 500 mg tablet 2023 024 [facility] #[id number], [address], [place], [place], [id number], 12/27/2023 12:51:34 ferrous sulfate 325 mg (65 mg iron) tablet 2023 024 [facility] #21401, [address], [place], [place], [id number], 12/27/2023 12:51:30 vitamin E (dl, acetate) 90 mg (200 unit) capsule 2023 024 [facility] #12064, [address], [place], [place], [id number], 12/27/2023 12:51:36 Vitamin C 500 mg tablet 2023 024 [facility] #07196, [address], [place], [place], [id number], 02/29/2024 15:15:40 ferrous sulfate 325 mg (65 mg iron) tablet 2023 024 [facility] #61113, [address], [place], [place], [id number], 02/29/2024 15:15:41 vitamin E (dl, acetate) 90 mg (200 unit) capsule 2023 024 [facility]91662, [address], [id number], 02/29/2024 15:15:42 Vitamin C 500 mg tablet 2023 [facility] #67420, [address], [place], [place], [id number], 08/30/2024 15:41:27 ferrous sulfate 325 mg (65 mg iron) tablet 2023 [facility] #61900, [address], [place], [place], [id number], 08/30/2024 15:41:28 vitamin E (dl, acetate) 90 mg (200 unit) capsule 2023 [facility] #34585, [address], [place], [place], [id number], 08/30/2024 15:41:27 Patient TargetsNo targets recorded. Patient InstructionsNo instructions recorded. Reason for Referral None Reported. Results Created Date Observation Date Name Description Value Unit Range Abnormal Flag Note LastModifiedBy Organization Detail LastModifiedTime 11/04/19 24 10/29/2023 polys omnog jacob, titra tion study No observ ation record ed. Not Available 2023 17:47:28 11/15/19 24 07/09/2022 home sleep study No observ ation record ed. BARCODE Not Available 2023 14:28:15 Result Notes None recorded. Problems Name Problem SNOMED Code Status Onset Date Resolution Date Notes Provider Name and Address Organization Details Recorded Time Hypercholeste rolemia 77189147 Active Not Available [facility] 3 06:56:31 Depressive disorder 73880071 Active Not Available [facility] 3 06:56:31 Arthritis 6455431 Active Not Available [facility] 3 06:56:31 Hypertensive disorder 67678295 Active Not Available [facility] 3 06:56:31 Anxiety 12095311 Active Not Available [facility] 3 06:56:31 Diabetes mellitus 69851260 Active Not Available [facility] 3 06:56:31 Nocturnal enuresis 6330730 Active Not Available [facility] 3 06:56:31 Obstructive sleep apnea syndrome 11251418 Active 2023 Toro Hernandez MD [address], [address], [place], [address] , [facility] 4 15:36:03 Periodic limb movement disorder 385753646 Active 2023 Toro Hernandez MD [address], [address], [place], [address] , [facility] 4 15:42:10 Vitamin E deficiency 49013065 Active 2023 Toro Hernandez MD [address], [address], [place], [address] , [facility] 4 12:40:48 Iron deficiency 67619127 Active 2023 Toro Hernandez MD [address], [address] [address], [place], [address] , [facility] 4 12:40:59 Notes:Medical History: Delay ed sleep phase syndrome Bilateral tinnitus Erythrocytosis Obesity with very severe OSAHS, AHI = 46, 10/30/23, on CPAP c/o IVRC T2DM Hyperlipidemia Hypertension CAD Atrial fibrillation on Xarelto CHF EF 40% Pacemaker-twiddler's syndrome DEE Urge urinary incontinence Iron deficiency PLMD Procedure History: Appendectomy 1979 Cholecystectomy 2011 3 coronary artery stent placement 2012 Biotronik dual chamber ICD placement 2017 Lead replacement, revision and AICD pocket refashioning 2018 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 Procedures Surgical History Date Name Laterality Status Provider Name and Address Organization Details Recorded Time cholecystectomy completed Fidelia Henderson MA [employer] 11/16/2023 14:50:38 Appendectomy completed SHAWN Rousseau [employer] 11/16/2023 14:50:56 fluoroscopy guided angioplasty of bilateral iliac arteries and insertion of bilateral iliac artery stents with contrast completed Fidelia Henderson MA [employer] 11/16/2023 14:51:15 Imaging Results Imaging Date Name Status LastModified by Organiz ation Details LastModified Time 10/29/2023 polysomnogram, titration study completed Information not available 11/04/2023 17:47:28 07/09/2022 home sleep study completed [facility] Information not available 11/15/2023 14:28:15 Procedure Notes None recorded. Medical Equipment None Reported. Allergies Allergen ID Allergen Name Allergen Category Reaction Reaction Severity Criticality Documentation Date Start Date Code Code System Note Provider Name and Address Organization Details Recorded Time 68709 Substance with sulfonami de structure and antibacte rial mechanism of action (substanc e) medicatio n Not available Not available Not available 11/16/2023 61875 8003 SNOMED SHAWN Rousseau, [place] - [facility] [employer] 14:40:52 Medications Name Sig Start Date Stop Date Status Note LastModified by Organization Details LastModified Time cyclobenzap rine 10 mg tablet 08/30 completed Not Available Not Available Not Available furosemide 40 mg tablet TAKE 1 TABLET BY MOUTH DAILY active Not Available Not Available No t Available carvedilol 25 mg tablet TAKE 1 TABLET BY MOUTH TWICE DAILY 08/30 completed Not Available Not Available Not Available carvedilol 12.5 mg tablet 11/16 completed Not Available Not Available Not Available lidocaine 4 % topical patch 08/30 completed Not Available Not Available Not Available Vitamin C 500 mg tablet Take 1 tablet every day by oral route. 2023 active Not Available Not Available Not Avai lable fluconazole 150 mg tablet TAKE 1 TABLET BY MOUTH 1 TIME FOR 1 DOSE 04/30 completed Not Available Not Available Not Available metoprolol succinate ER 50 mg tablet,exte nded release 24 hr 08/30 completed Not Available Not Available Not Available hydrocodone 5 mg-acetamin ophen 325 mg tablet 11/16 completed Not Available Not Available Not Available ondansetron HCl 4 mg tablet TAKE 1 TABLET BY MOUTH EVERY 6 HOURS NEEDED FOR NAUSEA 08/30 completed Not Available Not Available Not Available metoprolol succinate ER 100 mg tablet,exte nded release 24 hr active Not Available Not Available Not Available lidocaine 4 % topical cream active Not Available Not Available Not Available midodrine 5 mg tablet TAKE 1 TABLET BY MOUTH TWICE DAILY NEEDED active Not Available Not Available No t Available ciprofloxac in 500 mg tablet 11/01 completed Not Available Not Available Not Available tramadol 50 mg tablet 11/16 completed Not Available Not Available Not Available spironolact one 25 mg tablet active Not Available Not Available Not Available simvastatin 40 mg tablet 11/01 completed Not Available Not Available Not Available levothyroxi ne 75 mcg tablet TAKE 1 TABLET BY MOUTH EVERY MORNING active Not Available Not Available No t Available cefadroxil 500 mg capsule 08/30 completed Not Available Not Available Not Available amoxicillin 875 mg tablet 11/01 completed Not Available Not Available Not Available potassium chloride ER 20 mEq tablet,exte nded release(par t/cryst) TAKE 1 TABLET BY MOUTH DAILY 08/30 completed Not Available Not Available Not Available magnesium oxide 400 mg (241.3 mg magnesium) tablet active Not Available Not Available Not Available lorazepam 0.5 mg tablet TAKE 1 TABLET BY MOUTH EVERY 8 HOURS NEEDED FOR ANXIETY OR AGITATION 08/30 completed Not Available Not Available Not Available ciprofloxac in 0.3 % eye drops 11/16 completed Not Available Not Available Not Available levothyroxi ne 50 mcg tablet TAKE 1 TABLET BY MOUTH EVERY MORNING 11/16 completed Not Available Not Available Not Available paroxetine 20 mg tablet 11/01 completed Not Available Not Available Not Available simvastatin 20 mg tablet 11/16 completed Not Available Not Available Not Available nortriptyli ne 10 mg capsule TAKE 1 CAPSULE BY MOUTH EVERY NIGHT active Not Available Not Available No t Available metformin 1,000 mg tablet TK ONE T PO BID BEFORE MEALS 11/16 completed Not Available Not Available Not Available nitrofurant oin macrocrysta l 100 mg capsule 11/01 completed Not Available Not Available Not Available ranitidine 150 mg tablet 11/01 completed Not Available Not Available Not Available lisinopril 10 mg tablet 08/30 completed Not Available Not Available Not Available Humulin 70/30 U-100 Insulin 100 unit/mL subcutaneou s suspension 08/30 completed Not Available Not Available Not Available docusate sodium 100 mg capsule TAKE 1 CAPSULE BY MOUTH TWICE DAILY 08/30 completed Not Available Not Available Not Available gabapentin 300 mg capsule 11/16 completed Not Available Not Available Not Available omeprazole 20 mg capsule,del ayed release TAKE 1 CAPSULE BY MOUTH DAILY active Not Available Not Available No t Available levofloxaci n 500 mg tablet TAKE 1 TABLET BY MOUTH DAILY FOR 7 DAYS 02/28 completed Not Available Not Available Not Available albuterol sulfate HFA 90 mcg/actuati on aerosol inhaler INHALE 1 TO 2 PUFFS BY MOUTH EVERY 4 HOURS NEEDED FOR COUGH active Not Available Not Available No t Available paroxetine 40 mg tablet 11/16 completed Not Available Not Available Not Available diltiazem 30 mg tablet TAKE 1 TABLET BY MOUTH THREE TIMES DAILY 08/30 completed Not Available Not Available Not Available oxybutynin chloride 5 mg tablet Take 1 tablet twice a day by oral route. 11/16 completed Not Available Not Available Not Available ondansetron 4 mg disintegrat ing tablet 11/01 completed Not Available Not Available Not Available cefdinir 300 mg capsule TAKE 2 CAPSULES BY MOUTH DAILY FOR 7 DAYS 11/16 completed Not Available Not Available Not Available fluticasone propionate 50 mcg/actuati on nasal spray,suspe nsion SHAKE LIQUID AND USE 1 TO 2 SPRAYS IN EACH NOSTRIL DAILY DIRECTED active Not Available Not Available No t Available amoxicillin 875 mg-potassiu m clavulanate 125 mg tablet 11/01 completed Not Available Not Available Not Available neomycin-po lymyxin-hyd rocort 3.5 mg-10,000 unit/mL-1 % ear drops,susp SHAKE LIQUID AND INSTILL 3 DROPS TO LEFT EAR FOUR TIMES DAILY FOR 7 DAYS 12/06 completed Not Available Not Available Not Available insulin syringe U-100 with needle 1/2 mL 30 gauge U UTD 11/01 completed Not Available Not Available Not Available escitalopra m 10 mg tablet TAKE 1 TABLET BY MOUTH DAILY active Not Available Not Available No t Available Novolog FlexPen U-100 Insulin aspart 100 unit/mL (3 mL) subcutaneou s INJECT 16-13-10 UNITS BEFORE EACH MEAL UP TO 70 UNITS PER DAY DIRECTED. active Not Available Not Available No t Available cyclobenzap rine 5 mg tablet active Not Available Not Available Not Available nitrofurant oin monohydrate /macrocryst als 100 mg capsule TAKE 1 CAPSULE BY MOUTH TWICE DAILY FOR 7 DAYS 02/28 completed Not Available Not Available Not Available trospium 20 mg tablet TAKE 1 TABLET BY MOUTH IN THE MORNING AND AT BEDTIME 08/30 completed Not Available Not Available Not Available Vesicare 10 mg tablet Take 1 tablet every day by oral route for 21 days. 11/16 completed Not Available Not Available Not Available Lantus U-100 Insulin 08/30 completed Not Available Not Available Not Available BD Ultra-Fine Short Pen Needle 31 gauge x 02/22 completed Not Available Not Available Not Available FeroSul 325 mg (65 mg iron) tablet Take 1 tablet every day by oral route. active Not Available Not Available No t Available Xarelto 20 mg tablet TAKE 1 TABLET BY MOUTH DAILY active Not Available Not Available No t Available OneTouch Verio test strips TEST FOUR TIMES DAILY 08/30 completed Not Available Not Available Not Available vitamin E (dl, acetate) 90 mg (200 unit) capsule Take 1 capsule every day by oral route. 2023 active Not Available Not Available Not Avai lable Myrbetriq 50 mg tablet,exte nded release TAKE 1 TABLET BY MOUTH ONCE DAILY. 11/16 completed Not Available Not Available Not Available Ultra Thin Lancets 30 gauge USE TO TEST BLOOD GLUCOSE ONCE DAILY 11/16 completed Not Available Not Available Not Available Farxiga 10 mg tablet TAKE 1 TABLET BY MOUTH EVERY DAY 08/30 completed Not Available Not Available Not Available Entresto 24 mg-26 mg tablet TAKE 1 TABLET BY MOUTH TWICE DAILY active Not Available Not Available No t Available Basaglar KwikPen U-100 Insulin 100 unit/mL (3 mL) subcutaneou s ADMINISTE R 18 UNITS UNDER THE SKIN EVERY MORNING active Not Available Not Available No t Available BD Trina 2nd Gen Pen Needle 32 gauge x USE THREE TIMES DAILY 08/30 completed Not Available Not Available Not Available OneTouch Verio Reflect Meter TEST BLOOD GLUCOSE ONCE DAILY 11/16 completed Not Available Not Available Not Available Gemtesa 75 mg tablet TAKE 1 TABLET BY MOUTH DAILY active Not Available Not Available No t Available Vitals Date Recorded Body height Body mass index (BMI) Body weight Heart rate Oxygen saturation Oxygen saturation in Arterial blood by Pulse oximetry Body temperature Systolic blood pressure Diastolic blood pressure Provider Name and Address Organization Details Last Updated DateTime 4 162.56 cm 46.3 kg/m2 094127. 94 g 83 /min 98 % 98 % 98 [degF] 118 mm[Hg] 76 mm[Hg] Fidelia Henderson MA [facility] [employer] [facility] 4 14:40:16 Date Recorded Heart rate Respiratory rate Provider N jean and Address Organization Details Last Updated DateTime 11/16/2023 83 /min 15 /min Toro Hernandez MD [address], [address], [place], [address], [facility] [employer] 11/16/2023 15:48:04 Date Recorded Body height Body mass index (BMI) Body weight Heart rate Systolic blood pressure Diastolic blood pressure Provider Name and Address Organization Details Last Updated DateTime 4 162.56 cm 47.2 kg/m2 406805. 9 g 75 /min 120 mm[Hg] 76 mm[Hg] Fidelia Henderson MA [facility] [employer] 4 12:28:59 Date Recorded Body temperature Oxygen saturation Oxygen saturation in Arterial blood by Pulse oximetry Heart rate Respiratory rate Provider Name and Address Organization Details Last Updated DateTime 4 97.5 [degF] 95 % 95 % 75 /min 15 /min Toro Hernandez MD [address], [address], [address], [facility] [employer] 4 12:54:14 Date Recorded Body height Body mass index (BMI) Body weight Systolic blood pressure Diastolic blood pressure Provider Name and Address Organization Details Last Updated DateTime 02/29/2024 162.56 cm 44.1 kg/m2 978321.2 4 g 120 mm[Hg] 74 mm[Hg] Tunde Marsh CMA [facility] [employer] 4 14:37:50 Date Recorded Body temperature Oxygen saturation Oxygen saturation in Arterial blood by Pulse oximetry Heart rate Heart rate Respiratory rate Provider Name and Address Organization Details Last Updated DateTime 4 97.6 [degF] 93 % 93 % 92 /min 92 /min 15 /min Toro Hernandez MD [address], [address], [place], [address], [facility] [employer] 4 15:19:12 Date Recorded Body height Body mass index (BMI) Body weight Body temperature Heart rate Oxygen saturation Oxygen saturation in Arterial blood by Pulse oximetry Systolic blood pressure Diastolic blood pressure Provider Name and Address Organization Details Last Updated DateTime 162.56 cm 43.9 kg/m2 009561. 65 g 98.4 [degF] 83 /min 96 % 96 % 126 mm[Hg] 82 mm[Hg] Re Valverde MA [facility] [employer] 4 15:14:05 Date Recorded Heart rate Respiratory rate Provider N jean and Address Organization Details Last Updated DateTime 08/30/2024 83 /min 14 /min Toro Hernandez MD [address], [address], [place], [address], [facility] [employer] 08/30/2024 15:13:01 Social History Question Answer Notes LastModified by Organizat ion Details LastModified Time Tobacco Smoking Status Former Smoker Fidelia Henderson MA null, [facility] [employer] 11/16/2023 14:48:35 What Is Your Level Of Alcohol Consumption? None Information not available 11/16/2023 What Is Your Level Of Caffeine Consumption? Heavy Information not available 11/16/2023 In The 14 Days Before Symptom Onset, Have You Had Close Contact With A Laboratory-confi rmed COVID-19 While That Case Was Ill? No Information not available 11/16/2023 In The 14 Days Before Symptom Onset, Have You Had Close Contact With A Person Who Is Under Investigation For COVID-19 While That Person Was Ill? No Information not available 11/16/2023 Are You Currently Employed? No Information not available 08/30/2024 What Type Of Diet Are You Following? REGULAR Information not available 08/30/2024 Which Illicit Or Recreational Drugs Have You Used? Marijuana Information not available 11/16/2023 Do You Have An Electrostatic Air Filter? No Information not available 11/16/2023 When Did You Quit Smoking? 16+yearssincelastci marisol Information not available 11/16/2023 Do You Have A Humidifier? No Information not available 11/16/2023 How Many Years Have You Used Illicit Or Recreational Drugs? 40 Information not available 11/16/2023 Where Do You Live? [place] Information not available 11/16/2023 Do You Have Moisture Problems In Your Home? No Information not available 11/16/2023 What Was The Date Of Your Most Recent Tobacco Screening? 08/30/2024 Information not available 08/30/2024 Do You Have Any Pets? Yes Information not available 11/16/2023 Do You Use Your Seat Belt Or Car Seat Routinely? Yes Information not available 11/16/2023 Do You Have Smoke And Carbon Monoxide Detectors In Your Home? Yes Information not available 11/16/2023 At What Age Did You Start Smoking Tobacco? 18 Information not available 11/16/2023 Are You Passively Exposed To Smoke? No Information not available 11/16/2023 Do You Feel Stressed (tense, Restless, Nervous, Or Anxious, Or Unable To Sleep At Night)? [id number] Information not available 11/16/2023 Do You Use Any Illicit Or Recreational Drugs? Yes Information not available 11/16/2023 Do You Use Sunscreen Routinely? No Information not available 11/16/2023 Have You Recently Traveled Abroad? No Information not available 11/16/2023 Have You Used IV Drugs? No Information not available 11/16/2023 Do You Have Any Dietary Restrictions? No Information not available 08/30/2024 Do You Or Have You Ever Used Any Other Forms Of Tobacco Or Nicotine? No Information not available 11/16/2023 Sex: Unknown Functional Status None recorded. Mental Status None recorded. Family History Relationship Description Onset Age of this Age Resolved Age Notes LastModified by Organization Details LastModified Time Mother Diabetes mellitus [email or web address] Not available 2023 14:45:15 Mother Hypertensive disorder [email or web address] Not available 2023 14:45:33 Maternal Grandmother Diabetes mellitus [email or web address] Not available 2023 14:45:15 Maternal Grandmother Malignant tumor of pancreas [email or web address] Not available 2023 14:45:59 Maternal Grandfather Malignant tumor of lung [email or web address] Not available 2023 14:46:13 Father Diabetes mellitus [email or web address] Not available 2023 14:46:39 Medical History No medical history recorded. Gynecological HistoryNo gynecological history recorded. Obstetrics History GPAL:G 0 P 0 0 0 0 Past Encounters Encounter ID Performer Location Encounter Start Date Encounter Closed Date Diagnosis/Indication Diagnosis SNOMED-CT Code Diagnosis ICD10 Code [id number] Toro Hernandez MD [facility] [place] [address] 11/16/2023 14:19:22 11/17/2023 08:23:39 Obstructive sleep apnea syndrome 25127992 G47.33 Periodic l imb movement disorder 240840699 G47.61 D50.8 E83.42 [id number] Toro Hernandez MD [facility] [address] 0 12/27/2023 12:16:41 12/28/2023 08:59:08 Obstructive sleep apnea syndrome 06817406 G47.33 Vitamin E deficiency 541 01552 E56.0 Iron deficiency 57997184 E61.1 [id number] Toro Hernandez MD [facility] [address] 02/29/2024 14:13:36 02/29/2024 15:41:43 Obstructive sleep apnea syndrome 23401972 G47.33 Vitamin E deficiency 541 19560 E56.0 Iron deficiency 01606646 E61.1 [id number] Toro Hernandez MD [facility] [address] 08/30/2024 14:49:27 08/30/2024 17:10:13 Obstructive sleep apnea syndrome 20632897 G47.33 Vitamin E deficiency 541 13458 E56.0 Iron deficiency 41196374 E61.1 Health Concerns Section Related Observation LastModified by Organization Detai ls LastModified Time None Recorded Concern Status LastModified by Organization Details LastModified Time None Recorded Advance Directives Directive None Recorded Payers Encounter Date Sequence Insurance Name Policy Number Policy Ojeda Covered Member ID Ojeda Member ID Guarantor Name 11/16/2023 1 [facility] ON OR AFTER 10/10/2020 - DUAL ELIGIBLE (MEDICARE REPLACEMENT/ ADVANTAGE - HMO) [id number] Loretta V Isamar [id number] Loretta V Galliano 12/27/2023 1 [facility] ON OR AFTER 10/10/2020 - DUAL ELIGIBLE (MEDICARE REPLACEMENT/ ADVANTAGE - HMO) [id number] Loretta V Galliano [id number] Loretta V Galliano 02/29/2024 1 [facility] ON OR AFTER 10/10/2020 - DUAL ELIGIBLE (MEDICARE REPLACEMENT/ ADVANTAGE - HMO) [id number] Loretta V Galliano [id number] Loretta V Galliano 08/30/2024 1 [facility] ON OR AFTER 10/10/2020 - DUAL ELIGIBLE (MEDICARE REPLACEMENT/ ADVANTAGE - HMO) [id number] Loretta V Isamar [id number] Loretta Yumiko Galliano Notes Date Note Type Note Provider Name and Address Organization Details Recorded Time 11/16/2023 text/html Primary care/Ref erring provider: Jey Klein PA-C; Oswaldo Serrano MD; Pastora Flores MD CC: MyResMed AirSense 10autoset unit is broken. During the [facility] home sleep study on 07/09/22, AHI = 46. During the [facility] titration sleep study on 10/30/23, PLMI = 36. The patient uses a ResMed AirSense 10 autoset unit with heated humidification. The patient does not need the ramp to start low and go up slowly on the pressure anymore. There is some xerostomia in a.m. There is no hose/mask condensation with water. The patient wears a Respironics small Dream Wear nasal mask without chin strap. There is no claustrophobia, no nostril/nose bridge irritation, no facial rash, no facial numbness, no nosebleeding. The patient feels more refreshed upon waking and daytime alertness is improved. Energy levels are sustained for the remainder of the day. At home, the patient sleeps from 3 am to 9 am and wakes up with an alarm. Snoring: moderate, since .Snorting: yesChoking: noCoughing: noGasping: yesGagging: yesSighing: yesWitnessed apnea: yesTwitching or jerking of leg(s), arm(s), body, head: yesTeeth grinding: n/aTeeth clenching: n/aSleeptalking: yesSleepwalking: noSleep crying: noBedwetting: yesTongue/lip/gum/cheek biting: noSleeping with open mouth: yesSleep paralysis: noHypnagogic hallucinations: yes, hears the door openingHypnopompic hallucinations: noVivid dreams: yesDifficulty with sleep onset: yesDifficulty with sleep maintenance: yesSleep interruptions: dreamsPatient wakes up with: fatigue, xerostomia, sore throat, hoarse voice, headaches, cognitive impairment, mobility impairment, dexterity impairmentDaytime cataplexy: noMorning hypersomnolence: yesAfternoon hypersomnolence: yesCaffeine sources in diet: coffee 1/2 cup per day, soda 4.5 cans per day, chocolate 1.5 candy per day Associated medical and psychiatric conditions:Congestive heart failure: yesCoronary artery disease: yesMyocardial infarction: noHypertension: yesArrhythmias: yesStroke: noBronchial asthma: noChronic obstructive pulmonary disease: noDepression: noBipolar disorder: noAnxiety: noPanic disorder: noPosttraumatic stress disorder: noAttention deficit and hyperactivity disorder: noObsessive Compulsive disorder: noSchizophrenia: noSchizoaffective disorder: noPersonality disorder: noChronic analgesic use: noChronic sedative/hypnotic use: no EPWORTH SLEEPINESS SCALE (ESS) CHANCE OF DOZING SCORE0 = would never doze1 = slight chance of dozing2 = moderate chance of dozing3 = high chance of dozing SITUATION AND CHANCE OF DOZINGSitting and reading - 3Watching television - 3Sitting inactive in a public place (e.g. a theater or meeting) - 1As a passenger in a car for an hour without a break - 1Lying down to rest in the afternoon when circumstances permit - 3Sitting and talking to someone - 2Sitting quietly after lunch without alcohol - 3In a car, while stopped for a few minutes in the traffic - 1TOTAL SCORE 17Subjectively, patient has a high chance of dozing. Toro Hernandez MD [address] [facility], [facility] [address], [place], [address], [facility] [employer] 11/28/2023 18:03:42 12/27/2023 text/html Primary care/Ref erring provider: Jey Klein PA-C; Oswaldo Serrano MD; Pastora Flores MD CC: My ResMed AirSense 10 autoset unit is broken. During the [facility] home sleep study on 07/09/22, AHI = 46. During the [facility] titration sleep study on 10/30/23, PLMI = 36. The patient uses a ResMed AirSense 10 autoset unit with heated humidification. The patient does not need the ramp to start low and go up slowly on the pressure anymore. There is some xerostomia in a.m. There is no hose/mask condensation with water. The patient wears a Respironics small Dream Wear nasal mask without chin strap. There is no claustrophobia, no nostril/nose bridge irritation, no facial rash, no facial numbness, no nosebleeding. The patient feels more refreshed upon waking and daytime alertness is improved. Energy levels are sustained for the remainder of the day. At home, the patient sleeps from 3 am to 9 am and wakes up with an alarm. Snoring: moderate, since .Snorting: yesChoking: noCoughing: noGasping: yesGagging: yesSighing: yesWitnessed apnea: yesTwitching or jerking of leg(s), arm(s), body, head: yesTeeth grinding: n/aTeeth clenching: n/aSleeptalking: yesSleepwalking: noSleep crying: noBedwetting: yesTongue/lip/gum/cheek biting: noSleeping with open mouth: yesSleep paralysis: noHypnagogic hallucinations: yes, hears the door openingHypnopompic hallucinations: noVivid dreams: yesDifficulty with sleep onset: yesDifficulty with sleep maintenance: yesSleep interruptions: dreamsPatient wakes up with: fatigue, xerostomia, sore throat, hoarse voice, headaches, cognitive impairment, mobility impairment, dexterity impairmentDaytime cataplexy: noMorning hypersomnolence: yesAfternoon hypersomnolence: yesCaffeine sources in diet: coffee 1/2 cup per day, soda 4.5 cans per day, chocolate 1.5 candy per day Associated medical and psychiatric conditions:Congestive heart failure: yesCoronary artery disease: yesMyocardial infarction: noHypertension: yesArrhythmias: yesStroke: noBronchial asthma: noChronic obstructive pulmonary disease: noDepression: noBipolar disorder: noAnxiety: noPanic disorder: noPosttraumatic stress disorder: noAttention deficit and hyperactivity disorder: noObsessive Compulsive disorder: noSchizophrenia: noSchizoaffective disorder: noPersonality disorder: noChronic analgesic use: noChronic sedative/hypnotic use: no EPWORTH SLEEPINESS SCALE (ESS) CHANCE OF DOZING SCORE0 = would never doze1 = slight chance of dozing2 = moderate chance of dozing3 = high chance of dozing SITUATION AND CHANCE OF DOZINGSitting and reading - 0Watching television - 2Sitting inactive in a public place (e.g. a theater or meeting) - 1As a passenger in a car for an hour without a break - 1Lying down to rest in the afternoon when circumstances permit - 2Sitting and talking to someone - 0Sitting quietly after lunch without alcohol - 2In a car, while stopped for a few minutes in the traffic - 0TOTAL SCORE 8Subjectively, patient has a slight chance of dozing. Toro Hernandez MD [address] [place] [address], [id number], [place] [facility] 12/27/2023 12:54:50 02/29/2024 text/html Primary care/Ref erring provider: Jey Klein PA-C; Oswaldo Serrano MD; Pastora Flores MD CC: I have some nosebleeding from using my nasal CPAP. During the [facility] home sleep study on 07/09/22, AHI = 46. During the [facility] titration sleep study on 10/30/23, PLMI = 36. At home since 12/26/23, the patient uses a ResMed AirSense 11 autoset unit with heated humidification. The patient does not need the ramp to start low and go up slowly on the pressure anymore. There is some xerostomia in a.m. There is no hose/mask condensation with water. The patient wears a Respironics small Dream Wear nasal mask without chin strap. There is no claustrophobia, no nostril/nose bridge irritation, no facial rash, no facial numbness, no nosebleeding. The patient feels more refreshed upon waking and daytime alertness is improved. Energy levels are sustained for the remainder of the day. At home, the patient sleeps from 3 am to 9 am and wakes up with an alarm. Snoring: moderate, since .Snorting: yesChoking: noCoughing: noGasping: yesGagging: yesSighing: yesWitnessed apnea: yesTwitching or jerking of leg(s), arm(s), body, head: yesTeeth grinding: n/aTeeth clenching: n/aSleeptalking: yesSleepwalking: noSleep crying: noBedwetting: yesTongue/lip/gum/cheek biting: noSleeping with open mouth: yesSleep paralysis: noHypnagogic hallucinations: yes, hears the door openingHypnopompic hallucinations: noVivid dreams: yesDifficulty with sleep onset: yesDifficulty with sleep maintenance: yesSleep interruptions: dreamsPatient wakes up with: fatigue, xerostomia, sore throat, hoarse voice, headaches, cognitive impairment, mobility impairment, dexterity impairmentDaytime cataplexy: noMorning hypersomnolence: yesAfternoon hypersomnolence: yesCaffeine sources in diet: coffee 1/2 cup per day, soda 4.5 cans per day, chocolate 1.5 candy per day Associated medical and psychiatric conditions:Congestive heart failure: yesCoronary artery disease: yesMyocardial infarction: noHypertension: yesArrhythmias: yesStroke: noBronchial asthma: noChronic obstructive pulmonary disease: noDepression: noBipolar disorder: noAnxiety: noPanic disorder: noPosttraumatic stress disorder: noAttention deficit and hyperactivity disorder: noObsessive Compulsive disorder: noSchizophrenia: noSchizoaffective disorder: noPersonality disorder: noChronic analgesic use: noChronic sedative/hypnotic use: no EPWORTH SLEEPINESS SCALE (ESS) CHANCE OF DOZING SCORE0 = would never doze1 = slight chance of dozing2 = moderate chance of dozing3 = high chance of dozing SITUATION AND CHANCE OF DOZINGSitting and reading - 2Watching television - 2Sitting inactive in a public place (e.g. a theater or meeting) - 2As a passenger in a car for an hour without a break - 1Lying down to rest in the afternoon when circumstances permit - 2Sitting and talking to someone - 0Sitting quietly after lunch without alcohol - 2In a car, while stopped for a few minutes in the traffic - 1TOTAL SCORE 12Subjectively, patient has a moderate chance of dozing. Toro Hernandez MD [address] [place] [address], [phone], [facility] 04/15/2024 16:06:26 08/30/2024 text/html Primary care/Ref erring provider: Jey Klein PA-C; Oswaldo Serrano MD; Pastora Flores MD CC: I have claustrophobia using my CPAP. I was also hospitalized at [place] for blood infection from May to July. During the [facility] home sleep study on 07/09/22, AHI = 46. During the [facility] titration sleep study on 10/30/23, PLMI = 36. At home since 02/29/24, the patient uses a ResMed AirSense 11 autoset unit with heated humidification. The patient does not need the ramp to start low and go up slowly on the pressure anymore. There is some xerostomia in a.m. There is no hose/mask condensation with water. The patient alternates between a Respironics small Dream Wear nasal mask and a Respironics small Dream Wear full face mask without chin strap. There is no claustrophobia, no nostril/nose bridge irritation, no facial rash, no facial numbness, no nosebleeding. The patient feels more refreshed upon waking and daytime alertness is improved. Energy levels are sustained for the remainder of the day. At home, the patient sleeps from 3 am to 9 am and wakes up with an alarm. Snoring: moderate, since .Snorting: yesChoking: noCoughing: noGasping: yesGagging: yesSighing: yesWitnessed apnea: yesTwitching or jerking of leg(s), arm(s), body, head: yesTeeth grinding: n/aTeeth clenching: n/aSleeptalking: yesSleepwalking: noSleep crying: noBedwetting: yesTongue/lip/gum/cheek biting: noSleeping with open mouth: yesSleep paralysis: noHypnagogic hallucinations: yes, hears the door openingHypnopompic hallucinations: noVivid dreams: yesDifficulty with sleep onset: yesDifficulty with sleep maintenance: yesSleep interruptions: dreamsPatient wakes up with: fatigue, xerostomia, sore throat, hoarse voice, headaches, cognitive impairment, mobility impairment, dexterity impairmentDaytime cataplexy: noMorning hypersomnolence: yesAfternoon hypersomnolence: yesCaffeine sources in diet: coffee 1/2 cup per day, soda 4.5 cans per day, chocolate 1.5 candy per day Associated medical and psychiatric conditions:Congestive heart failure: yesCoronary artery disease: yesMyocardial infarction: noHypertension: yesArrhythmias: yesStroke: noBronchial asthma: noChronic obstructive pulmonary disease: noDepression: noBipolar disorder: noAnxiety: noPanic disorder: noPosttraumatic stress disorder: noAttention deficit and hyperactivity disorder: noObsessive Compulsive disorder: noSchizophrenia: noSchizoaffective disorder: noPersonality disorder: noChronic analgesic use: noChronic sedative/hypnotic use: no EPWORTH SLEEPINESS SCALE (ESS) CHANCE OF DOZING SCORE0 = would never doze1 = slight chance of dozing2 = moderate chance of dozing3 = high chance of dozing SITUATION AND CHANCE OF DOZINGSitting and reading - 1Watching television - 2Sitting inactive in a public place (e.g. a theater or meeting) - 1As a passenger in a car for an hour without a break - 2Lying down to rest in the afternoon when circumstances permit - 3Sitting and talking to someone - 0Sitting quietly after lunch without alcohol - 1In a car, while stopped for a few minutes in the traffic - 1TOTAL SCORE 11Subjectively, patient has a moderate chance of dozing. Toro Hernandez MD [address] [place] [address], [phone], [place] [facility] 09/11/2024 18:06:53 OBGyn Episode No OBEpisode recorded.
--- OUTSIDE RECORDS SUMMARY | 2024-10-07 00:17 | XMS_ITS ---
Author Organization [facility] Address [address] [facility] [address] [place], [place] [id number] Care Team Providers Care Insurance Account Representative Name Role Phone JOSUÉ MAGANA Primary Care Provider REASON FOR VISIT [...] hrs for 30 days 08/09/2024 02/05/2025 Active Omeprazole 20 [...] Encounters Encounter Location Date Provider Diagnosis [facility] [address] [place], [place] [id number] 09/10/2024 JOSUÉ MAGANA Plan Of Treatment Next Appt Details Provider Name:JOSUÉ Mills, 12/17/2024 02:30:00 PM, [address], [place], [place], [phone], Progress Notes * Daria RODRIGUEZOB:[birth year] (63 yo F)Acc No.[id number]:09/10/2024 Progress Notes Patient:?Loretta RODRIGUEZ Provider:?Josué Magana M.D. :1960???Age:63 Y???Sex:Female D ate:09/10/2024 Address:[facility] [address] [place], [place] [id number] Subjective: * Chief Complaints: * ???1. 1 month f/u. * Medical History:? * Medications:?Taking Escitalo pram Oxalate 10 MG Tablet 1 tablet Orally [...] , Taking NovoLOG FlexPen 100 UNIT/ML Solution Pen-injector [...] hrs , stop date 02/05/2025 Objective: * Vitals:? Assessment: Plan: * Treatment: * Billing Information: * Visit Code:? * Procedure Codes:? * Electronic signature of WILL AWAIS MAGANA MD on 10/07/2024 at 12:17 AM PRODUCTION COOK Sign off status: Pending * Provider:?Josué Magana M.D. Date:? 09/10/2024 Generated for Howard wang/Latoya/Raquel on:?10/07/2024 12:17 AM PRODUCTION COOK
--- OUTSIDE RECORDS SUMMARY | 2024-10-07 00:17 | XMS_ITS | Continuity of Care Document ---
Author Organization [place] - [facility] [place] Address [address] [address] Assessment Encounter Date Assessment Date Assessment LastModified by Organization Details LastModified Time 08/30/2024 08/30/2024 Assessment: Iron deficiency Vit E deficiency Erythrocytosis Very severe OSAHS, AHI = 46 Plan: The following were reviewed and explained to the patient: [facility] home sleep study 07/09/22 AHI = 46 [facility] titration sleep study 10/30/23 Respironics small DreamWear [...] care store. Patient will change to an wrbn-qen-kqsa mask. Educated the patient on problems and [...] carrier. Patient will setup an appointment with [facility] for supplies and pressure adjustments. A major [...] further management. Follow-up: 3 months, November 2024 [facility] Not available 09/11/2024 18:06:16 Plan of Treatment Reminders Order Date Submit Date Provider Last Modified By Organization Details Last Modified Time Details Appointments Any 30 2024 01:30P Ciara Hernandez MD Not available Not available Not available Lab ferritin , serum or plasma [address] Out[facility], [address] [place], [address], 08/30/2024 15:41:21 vitamin E, serum [address] - Outpatient Lab, [address] [place], [address], 08/30/2024 15:41:21 Referral None recorded . Procedures None recorded . Surgeries None recorded . Imaging None recorded . Medication Orders Vitamin C 500 mg tablet 2023 024 [id number], [address] [facility], [place], [place], [id number], 08/30/2024 15:41:27 ferrous sulfate 325 mg (65 mg iron) tablet 2023 024 [facility] #[id number], [address], [place], [place], [id number], 08/30/2024 15:41:28 vitamin E (dl, acetate) 90 mg (200 unit) capsule 2023 024 [facility] #[id number], [address], [place], [place], [id number], 08/30/2024 15:41:27 Patient TargetsNo targets recorded. Patient InstructionsNo instructions recorded. Reason for Referral None Reported. Problems Name Problem SNOMED Code Status Onset Date Resolution Date Notes Provider Name and Address Organization Details Recorded Time Hypercholeste rolemia 35411367 Active Not Available [facility] 3 06:56:31 Depressive disorder 47373139 Active Not Available [facility] 3 06:56:31 Arthritis 8940158 Active Not Available [facility] 3 06:56:31 Hypertensive disorder 96806962 Active Not Available [facility] 3 06:56:31 Anxiety 24527804 Active Not Available [facility] 3 06:56:31 Diabetes mellitus 45599374 Active Not Available [facility] 3 06:56:31 Nocturnal enuresis 9264799 Active Not Available [facility] 3 06:56:31 Obstructive sleep apnea syndrome 93877376 Active 2023 Toro Hernandez MD [address], [place], [address] , [facility] 4 15:36:03 Periodic limb movement disorder 722741557 Active 2023 Toro Hernandez MD [address], [place], [address] , [facility] 4 15:42:10 Vitamin E deficiency 21758376 Active 2023 MD [address], [place], [address] , [facility] 4 12:40:48 Iron deficiency 29117351 Active 2023 Toro Hernandez MD [address] [facility], [facility] [address], [place], [address] , [facility] Offsite Care Resources [facility] [employer] 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 Procedures Surgical History Date Name Laterality Status Provider Name and Address Organization Details Recorded Time cholecystectomy completed Fidelia Henderson MA [place] [facility] 11/16/2023 14:50:38 Appendectomy completed Fidelia Henderson MA [employer] [facility] 11/16/2023 14:50:56 fluoroscopy guided angioplasty of bilateral iliac arteries and insertion of bilateral iliac artery stents with contrast completed Fidelia Henderson MA [employer] [facility] 11/16/2023 14:51:15 Imaging Results None recorded. Procedure Notes None recorded. Medical Equipment None Reported. Allergies Allergen ID Allergen Name Allergen Category Reaction Reaction Severity Criticality Documentation Date Start Date Code Code System Note Provider Name and Address Organization Details Recorded Time 06068 Substance with sulfonami de structure and antibacte rial mechanism of action (substanc e) medicatio n Not available Not available Not available 11/16/2023 82946 8003 [facility] 14:40:52 Medications Name Sig Start Date Stop [...] 2nd Gen Pen Needle 32 gauge x 5/32 USE THREE TIMES DAILY 08/30 completed Not [...] Last Updated DateTime 162.56 cm 43.9 kg/m2 671601. 65 g 98.4 [degF] 83 /min 96 % 96 % 126 mm[Hg] 82 mm[Hg] Re Valverde MA [facility] [employer] 15:14:05 Date Recorded Heart rate Respiratory rate Provider N jean and Address Organization Details Last Updated DateTime 08/30/2024 83 /min 14 /min Toro Hernandez MD [address] [facility], [address] [place] [address], [place], [address], [facility] 08/30/2024 15:13:01 Social History Question Answer Notes LastModified by Organizat ion Details LastModified Time Tobacco Smoking Status Former Smoker Fidelia Henderson MA null, [facility] 11/16/2023 14:48:35 What Is Your Level Of [...] 11/16/2023 When Did You Quit Smoking? 16+yearssincelastci garette Information not available 11/16/2023 Do You Have [...] Anxious, Or Unable To Sleep At Night)? [id number] Information not available 11/16/2023 Do You Use [...] Diagnosis/Indication Diagnosis SNOMED-CT Code Diagnosis ICD10 Code [id number] Toro Hernandez MD [facility] [address] [address] 08/30/2024 14:49:27 08/30/2024 17:10:13 Obstructive sleep apnea syndrome 79656580 G47.33 Vitamin E deficiency 541 06665 E56.0 Iron deficiency 23130370 E61.1 Health Concerns Section Related Observation LastModified by Organization Detai ls LastModified Time None Recorded Concern Status LastModified by Organization Details LastModified Time None Recorded Payers Encounter Date Sequence Insurance Name Policy Number Policy Ojeda Covered Member ID Ojeda Member ID Guarantor Name 08/30/2024 1 [facility] - DOS ON OR AFTER 2020 - DUAL ELIGIBLE (MEDICARE REPLACEMENT/ ADVANTAGE - HMO) [id number] Loretta Penn [id number] Loretta Penn Notes Date Note Type Note Provider Name and Address Organization Details Recorded Time 08/30/2024 text/html Primary care/Ref erring provider: Jey Klein PA-C; Oswaldo Serrano MD; Pastora Flores MD CC: I have claustrophobia using my CPAP. I was also hospitalized at [place] for blood infection from May to July. During the [facility] home sleep study on 07/09/22, AHI = 46. During the [facility] titration sleep study on 10/30/23, PLMI = [...] moderate chance of dozing. Toro Hernandez MD [address] [place] [address], [address] [place] [address], [place], [address], [facility] [employer] 09/11/2024 18:06:53 OBGyn Episode No OBEpisode recorded.
--- OUTSIDE RECORDS SUMMARY | 2024-10-07 00:17 | XMS_ITS ---
Author Organization [facility] Address [address] [place], [place] [id number] Care Team Providers Care Dermatology Technician Name Role Phone JEREMÍAS ASHTON Primary Care Provider REASON FOR VISIT Lab Order Resent Encounters Encounter Location Date Provider Diagnosis [facility] [address] [place], [place] [id number] 09/18/2024 JEREMÍAS ASHTON Plan Of Treatment Next Appt Details Provider Name:JEREMÍAS Mills, 12/17/2024 02:30:00 PM, [address], [place], [place], [id number], Progress Notes * JENNIFER RichaDelmaOB:[birth year] (63 yo F)Acc No.[id number]:09/18/2024 Patient:?Richa RODRIGUEZn :1960???Age:63 Y???Sex:Female [address] [place], [address] * true * Date:? 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
--- OUTSIDE RECORDS SUMMARY | 2024-10-07 00:18 | XMS_ITS | Clinical Summary ---
Author Organization [facility] Address [address] [place] [address] Care Team Providers Care Joint Cleaning Machine Operator Name Role Phone Fredis Klein [employer]SEKEEPER Primary Care Provider Source Comments [facility],non-owned Affiliates and Associated Physician Practices is amultiple site organization consisting of ambulatory clinics and hospital sitesin [place], [place], [place] and [place]. This disclosure is being madepursuant to the Care Everywhere program and may not contain all information available regarding this patient. Last updated 18.[facility] Allergies Active Allergy Reactions Criticality Noted Date Comments Sulfa Drugs 07/15/2016 Medications * Be aware that medications may not be up to date on this document. Alwaysverify current medications with the patient. Medication Sig Dispensed Refills Start Date End Date Status Insulin NPH Isophane & Regular (HUMULIN 70/30 SC) Active METFORMIN & DIET MANAGE PROD PO Active RANITIDINE & DIET MANAGE PROD PO Active LISINOPRIL & DIET MANAGE PROD PO Active TRAMADOL & DIETARY MANAGE PROD PO Active Citalopram Hydrobromide (CELEXA PO) Active Carvedilol (COREG PO) Act darrel OXYBUTYNIN CHLORIDE PO Ac tive NORTRIPTYLINE HCL PO Acti ve nitrofurantoin monohyd macro crystals (MACROBID) 100 MG capsule Take 1 Cap by mouth 2 times daily with morning and evening meal 14 Cap 0 07/15/2016 Active Active Problems No known active problems Social History Tobacco Use Types Packs/Day Years Used Date Smoking Tobacco: Never Assessed Sex and Gender Information Value Date Recorded Sex Assigned at Not on file Gender Identity Not on file Sexual Orientation Not on file Last Filed Vital Signs Vital Sign Reading Time Taken Comments Blood Pressure 122/84 07/15/2016 4:59 PM CDT Pulse 103 07/15/2016 4:59 PM CDT Temperature 37.1 ??C (98.8 ??F) 07/15/2016 4:59 PM CD T Respiratory Rate 18 07/15/2016 4:59 PM CDT Oxygen Saturation 97% 07/15/2016 4:59 PM CDT Inhaled Oxygen Concentration - - Weight 90.7 kg (200 lb) 07/15/2016 4:59 PM CDT Height 167.6 cm (5' 6 ) 07/15/2016 4:59 PM CDT Body Mass Index 32.28 07/15/2016 4:59 PM CDT Plan of Treatment Health Maintenance Due Date Last Done Comments COLOGUARD (AGES 45-75) - COL ON CA SCREENING 1961 COLON MONITORING 1961 COLONOSCOPY - COLON CA SCREENING 1961 CT COLONOGRAPHY - COLON CA SCREENING 1961 Colorectal Cancer Screening 1961 FIT - COLON CA SCREENING 1961 FLEX SIG - COLON CA SCREENING 1961 LIPID TESTING 1961 MAMMOGRAM 1961 MEDICARE AWV ? 12 MONTHS 1961 PAP SMEAR 1961 HIV SCREENING 1976 HEPATITIS C SCREENING 12/15/1979 DTAP/TDAP/TD VACCINES (1 - Tdap) 1980 ZOSTER VACCINE (1 of 2) 12/20/2011 DEPRESSION SCREENING 10/10/2023 COVID-19 VACCINE ( - 2023-2 5 season) 2024 INFLUENZA VACCINE (#1) 2024 Respiratory Syncytial Virus (RSV) Vaccine Pt: or over 60 yrs (1 - 1-dose 75+ series) 2036 HEPATITIS B VACCINE Aged Out No longe r eligible based on patient's age to complete this topic HIB VACCINE Aged Out No longer eligi ble based on patient's age to complete this topic HPV VACCINE Aged Out No longer eligi ble based on patient's age to complete this topic MENINGOCOCCAL VACCINE Aged Out No brijesh maritza eligible based on patient's age to complete this topic PNEUMOCOCCAL VACCINE Aged Out No long er eligible based on patient's age to complete this topic Care Teams Joint Cleaning Machine Operator Relationship Specialty Start Date End Date Fredis Klein, [employer]SEKEEPER [address] [place] [address] PCP - General 08/08/18
--- OUTSIDE RECORDS SUMMARY | 2024-10-07 00:18 | XMS_ITS | CONTINUITY OF CARE DOCUMENT ---
Author Name issa parsons Address Unknown Organization [facility] Address [address] [place] [address] Phone [phone] Care Team Providers Care Ultrasound Coordinator Name Role Phone Mark JIMENES, Pastora Unavailable TONY JIMENES, JN Unavailable [phone] TONY JIMENES, JN Unavailable [phone] PROBLEMS Condition Status Date Provider Notes DIABETES MELLITUS active Aleja Blunt OBESITY active Aleja Blunt Hypercholesterolemia active Marisela Streeter lder Intellectual disability active Eliud Palacios i Endocarditis, TV active Eliud Herbert 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 Pastora Flores MD HTN active Eliud Herbert CHF--echo ef 30% on 05/2024 active Eliud mcgraw Biotronik dc (MRI Safe) ICD S/P new atrial lead and ventricular lead revision 11/2017--explanted due to infection 05/2024 completed - Leg edema, bilateral active Jasper nelson MD Current use of NOAC completed - Pastora Flores MD Shortness of breath active Jasper martinez MD ATRIAL FIB on Xarelto active Pastora Rockwell Dizziness active Pastora Flores MD Cardiomyopathy active Eliud Ahmedzai Sleep apnea, obstructive completed - Pastora Flores MD DIZZINESS completed - Pastora Flores MD Cardiomyopathy , EF 40% , Ca th 04/21 no CAD completed - aPstora Flores MD ABNORMAL ELECTROCARDIOGRAM A BNL STRESS 2013 completed - Pastora Flores MD HTN-02/19 ECHO EF 45 completed - Pastora Rockwell ENCOUNTERS Date Type Provider Location Encounter Diag nosis - In-person encounter Office Visit Jasper Mcfarland MD [facility] - In-person encounter Office Visit Past[facility] Flores [facility] CardiomyopathyCHF--echo ef 30% on 05/2024HTNEndocarditis, TVIntellectual disability - In-person encounter Office Visit Pastora Flores MD [facility] CardiomyopathyOSA--severe on cpap - In-person encounter Office Visit Pastora Flores MD [facility] - In-person encounter Office Visit Pastora Flores MD [facility] ATRIAL FIB on XareltoCurrent use of NOACHTN - In-person encounter Office Visit Pastora Flores MD [facility] - In-person encounter Office Visit Pastora Flores MD [facility] - In-person encounter Office Visit Pastora Flores MD [facility] - In-person encounter Office Visit Pastora Flores MD [facility] Sleep apnea, obstructiveOSA--severe on cpap - In-person encounter Office Visit Pastora Flores MD [facility] - In-person encounter Office Visit Pastora Flores MD [facility] ATRIAL FIB on XareltoCHF--echo ef 30% on 05/2024HTN - In-person encounter Office Visit Pastora Flores MD [facility] - In-person encounter Office Visit Pastora Flores MD [facility] HTN-02/19 ECHO EF 45CardiomyopathyHTN - In-person encounter Office Visit Pastora Flores MD [facility] - In-person encounter Office Visit Pastora Flores MD [facility] - In-person encounter Office Visit Pastora Flores MD [facility] - In-person encounter Office Visit Pastora Flores MD [facility] - In-person encounter Office Visit Pastora Flores MD [facility] Cardiomyopathy - In-person encounter Office Visit Pastora Flores MD [facility] - In-person encounter Office Visit Pastora Flores MD [facility] - In-person encounter Office Visit Jory Marvin MD [facility] Biotronik dc (MRI Safe) ICD S/P new atrial lead and ventricular lead revision 11/2017--explanted due to infection --echo ef 30% on 05/2024 - In-person encounter Office Visit Jasper Mcfarland MD [facility] - In-person encounter Office Visit Pastora Flores MD [facility] - In-person encounter Office Visit Daniel Harris MD [facility] - In-person encounter Office Visit Jory Marvin MD [facility] Cardiomyopathy - In-person encounter Office Visit Jasper Mcfarland MD [facility] - In-person encounter Office Visit Jasper Mcfarland MD [facility] Leg edema, bilateral - In-person encounter Office Visit Pastora Flores MD [facility] - In-person encounter Office Visit Pastora Flores MD [facility] - In-person encounter Office Visit Pastora Flores MD [facility] ATRIAL FIB on Xarelto - In-person encounter Office Visit Jasper Mcfarland MD [facility] ATRIAL FIB on XareltoShortness of breath - In-person encounter Office Visit Pastora Flores MD [facility] ATRIAL FIB on Xarelto - In-person encounter Office Visit Pastora Flores MD [facility] Cardiomyopathy , EF 40% , Cath 04/21 no CADDIZZINESSCardiomyopathyDizziness - In-person encounter Office Visit Pastora Flores MD [facility] - In-person encounter Office Visit Pastora Flores MD [facility] - In-person encounter Office Visit Pastora Flores MD [facility] - In-person encounter Office Visit Pastora Flores MD [facility] - In-person encounter Office Visit Pastora Flores MD [facility] ABNORMAL ELECTROCARDIOGRAM ABNL STRESS 2013Sleep apnea, obstructive - In-person encounter Office Visit Pastora Flores MD [facility] - In-person encounter Office Visit Pastora Flores MD [facility] - In-person encounter Office Visit Pastora Flores MD [facility] - In-person encounter Office Visit Pastora Flores MD [facility] - In-person encounter Office Visit Pastora Flores MD [facility] - In-person encounter Office Visit Pastora Flores MD [facility] ABNORMAL ELECTROCARDIOGRAM ABNL STRESS 2013Cardiomyopathy , EF 40% , Cath 04/21 no CAD - In-person encounter Office Visit Pastora Flores MD [facility] VITAL SIGNS Date Observation Value Provider Body Mass Index (Ratio) 42.61 kg/m2 Farhan ege Tracy blood pressure, cuff size large [facility]ri [facility] blood pressure, diastolic 72 mm[Hg] [facility] blood pressure, systolic 124 mm[Hg] Lu[facility], oximetry 99 % Marisela Katelin pulse rate 85 /min Marisela [facility] weight E&M 264 [lb_av] Marisela [facility] height E&M 66 [in_i] Marisela [facility] Body Mass Index (Ratio) 37.12 kg/m2 Jordy Flores MD weight E&M 230 [lb_av] Elenitamy Nieto height E&M 66 [in_i] [facility] Body Mass Index (Ratio) 45.03 kg/m2 Jordy Flores MD weight E&M 279 [lb_av] Maira Cage blood pressure, cuff size regular [facility] blood pressure, diastolic 72 mm[Hg] [facility] blood pressure, systolic 98 mm[Hg] [facility] pulse rate 69 /min [facility] oxygen saturation, oximetry 96 % Maira Cage respiratory rate E&M 14 /min Maira larios height E&M 66 [in_i] Maira Cage Body Mass Index (Ratio) 46.16 kg/m2 Eliud Herbert blood pressure, cuff size large Ja opalet blood pressure, diastolic 76 mm[Hg] Ja rret blood pressure, systolic 118 mm[Hg] Jar ret oxygen saturation, oximetry 96 % Diego respiratory rate E&M 16 /min Diego pulse rate 84 /min Diego weight E&M 286 [lb_av] Diego height E&M 66 [in_i] Diego y Body Mass Index (Ratio) 45.83 kg/m2 Jordy Flores MD blood pressure, cuff size regular [facility] blood pressure, diastolic 74 mm[Hg] [facility] blood pressure, systolic 124 mm[Hg] [facility] oxygen saturation, oximetry 96 % [facility] respiratory rate E&M 16 /min [facility] pulse rate 78 /min [facility] weight E&M 284 [lb_av] [facility] height E&M 66 [in_i] [facility] Body Mass Index (Ratio) 45.67 kg/m2 Eliud Herbert blood pressure, cuff size large Roel blood pressure, diastolic 113 mm[Hg] Ja rret blood pressure, systolic 134 mm[Hg] Jar ret pulse rate 76 /min Diego respiratory rate E&M 12 /min Diego oxygen saturation, oximetry 94 % Diego weight E&M 283 [lb_av] Diego y height E&M 66 [in_i] Diego y Body Mass Index (Ratio) 47.45 kg/m2 Jordy Flores MD oxygen saturation, oximetry 96 % Pastora Flores MD blood pressure, diastolic 80 mm[Hg] To colby Flores MD blood pressure, systolic 120 mm[Hg] Ton jessica Flores MD pulse rate 84 /min Pastora Flores MD weight E&M 294 [lb_av] Pastora Flores MD height E&M 66 [in_i] Pastora Flores MD Body Mass Index (Ratio) 47.45 kg/m2 Eliud Herbert blood pressure, diastolic 67 mm[Hg] St geovanny Felix blood pressure, systolic 130 mm[Hg] [place] Felix oxygen saturation, oximetry 94 % Eden Felix pulse rate 90 /min Eden Felix weight E&M 294 [lb_av] [place] respiratory rate E&M 16 /min [place] garcia height E&M 66 [in_i] [place] Body Mass Index (Ratio) 48.42 kg/m2 Jordy Flores MD blood pressure, cuff size regular [facility] blood pressure, diastolic 87 mm[Hg] [facility] Sabillon blood pressure, systolic 115 mm[Hg] [facility] edson Sabillon oxygen saturation, oximetry 99 % Cinthya Sabillon respiratory rate E&M 16 /min Bernie Sabillon pulse rate 100 /min Cinthya rockwell weight E&M 300 [lb_av] Cinthya rockwell height E&M 66 [in_i] Cinthya rockwell Body Mass Index (Ratio) 49.38 kg/m2 Eliud Ahmedzacourtney blood pressure, diastolic 71 mm[Hg] Ca therine Julius blood pressure, systolic 112 mm[Hg] Cat herine [place] oxygen saturation, oximetry 95 % Lucinda [place] respiratory rate E&M 16 /min Catheri ne Julius pulse rate 85 /min Lucnida [place] weight E&M 306 [lb_av] Lucinda [place] blood pressure, cuff size regular Ca therine [place] height E&M 66 [in_i] Lucinda [place] Body Mass Index (Ratio) 48.90 kg/m2 Jordy Flores MD blood pressure, cuff size large Tr balbir [place]inas blood pressure, diastolic 80 mm[Hg] Tr balbir [place] blood pressure, systolic 140 mm[Hg] Try mirat [place] oxygen saturation, oximetry 97 % Trycarlyle [place] respiratory rate E&M 18 /min Trynett [place] pulse rate 96 /min Trynett [place] weight E&M 303 [lb_av] Trycarlyle [place] height E&M 66 [in_i] Trycarlyle [place]inas Body Mass Index (Ratio) 48.25 kg/m2 Jordy Flores MD blood pressure, diastolic 65 mm[Hg] Rh isabel Huynh blood pressure, systolic 103 mm[Hg] Rho ndmy Huynh pulse rate 97 /min Saloni Huynh oxygen saturation, oximetry 97 % Saloni Huynh blood pressure, resting Yes Isabeln magali Huynh respiratory rate E&M 16 /min Salonimy Huynh blood pressure, cuff size regular Rh onmagali Huynh weight E&M 299 [lb_av] Salonimy Huynh height E&M 66 [in_i] Saloni Huynh Body Mass Index (Ratio) 47.29 kg/m2 Jordy Floers MD blood pressure, diastolic 74 mm[Hg] Soraya Foster blood pressure, systolic 114 mm[Hg] Jessica Foster oxygen saturation, oximetry 92 % Gwendolyn Foster pulse rate 83 /min Gwendolyn mendoza weight E&M 293 [lb_av] Gwendolyn mendoza respiratory rate E&M 18 /min Laura Foster Body Mass Index (Ratio) 45.67 kg/m2 Jordy Flores MD blood pressure, cuff size large Ke rri Gruenenfeldmilton blood pressure, diastolic 70 mm[Hg] Ke rri Gruenenfeldmilton blood pressure, systolic 110 mm[Hg] Luz Singernfjuan carloser oxygen saturation, oximetry 97 % Marisela Thomason respiratory rate E&M 16 /min Marisela garciaenenfbrenda pulse rate 83 /min Marisela Eduarde lder weight E&M 283 [lb_av] Marisela Gruenenfe lder height E&M 66 [in_i] Marisela Gruenenfe lder Body Mass Index (Ratio) 41.96 kg/m2 Jordy Flores MD blood pressure, diastolic 78 mm[Hg] Ann Hook blood pressure, systolic 132 mm[Hg] Clifton Garzaord oxygen saturation, oximetry 96 % Rylee Hook pulse rate 76 /min Rylee Fernandezafford weight E&M 260 [lb_av] Rylee Fernandezafford height E&M 66 [in_i] Rylee Fernandezafford temperature site temporal Rosemary Tank sley temperature E&M 96.3 [degF] Rosemary Tanks veronika Body Mass Index (Ratio) 41.67 kg/m2 Jordy Flores MD blood pressure, diastolic 63 mm[Hg] Henrietta Jon Grande blood pressure, systolic 109 mm[Hg] Sonal [place] oxygen saturation, oximetry 96 % Maddie Grande respiratory rate E&M 20 /min Pawan Grande pulse rate 68 /min Maddie bennett weight E&M 258.2 [lb_av] Maddie rojason height E&M 66 [in_i] Maddie James nson Body Mass Index (Ratio) 41.48 kg/m2 Jordy Flores MD blood pressure, diastolic 70 mm[Hg] [facility] Juarez blood pressure, systolic 100 mm[Hg] Annie vilchis Juarez oxygen saturation, oximetry 98 % Cal Juarez respiratory rate E&M 16 /min Cal Juarez pulse rate 88 /min Cal Juarez weight E&M 257 [lb_av] Cal Juarez height E&M 66 [in_i] Cal Juarez Body Mass Index (Ratio) 38.89 kg/m2 Jordy Flores MD blood pressure, cuff size regular Cy ntasiaa Nelson blood pressure, diastolic 70 mm[Hg] Cy nthia Omar blood pressure, systolic 118 mm[Hg] Aidee vilma Nelson oxygen saturation, oximetry 96 % Tila Nelson respiratory rate E&M 16 /min Tila Nelson pulse rate 71 /min Tila Campbel l weight E&M 241 [lb_av] Tila Campbel l height E&M 66 [in_i] Tila Campbel l Body Mass Index (Ratio) 39.15 kg/m2 Jordy Flores MD blood pressure, cuff size large Henrietta Grande blood pressure, diastolic 70 mm[Hg] Henrietta Grande blood pressure, systolic 122 mm[Hg] Sonal Grande oxygen saturation, oximetry 97 % Maddie Grande respiratory rate E&M 18 /min Pawan Grande pulse rate 79 /min Maddie bennett weight E&M 242.6 [lb_av] Maddie rojason height E&M 66 [in_i] Maddie bennett Body Mass Index (Ratio) 36.15 kg/m2 Eric Mcgraw blood pressure, cuff size large Ke rri Katelin blood pressure, diastolic 82 mm[Hg] Ke rri Lucrecianfjuan carloser blood pressure, systolic 132 mm[Hg] Luz Thomason oxygen saturation, oximetry 98 % Marisela Thomason respiratory rate E&M 20 /min Marisela Jae sims pulse rate 73 /min Marisela Eduarde er weight E&M 224 [lb_av] Marisela Eduarde er height E&M 66 [in_i] Marisela Grnoranenfe er Body Mass Index (Ratio) 33.89 kg/m2 Jonathan Mcfarland MD blood pressure, diastolic 80 mm[Hg] [facility], [facility] 120 mm[Hg] Annie deng Prole oxygen saturation, oximetry 98 % Jordan Juarez respiratory rate E&M 16 /min Cal Juarez pulse rate 86 /min Cal Juarez weight E&M 210 [lb_av] Cal Juarez height E&M 66 [in_i] Cal Juarez Body Mass Index (Ratio) 33.57 kg/m2 Jordy Flores MD blood pressure, cuff size regular Ke rri Gruenenfelder blood pressure, diastolic 82 mm[Hg] Efe rri Katelin blood pressure, systolic 125 mm[Hg] Luz Chapajuan carlosmilton oxygen saturation, oximetry 99 % Marisela Thomason pulse rate 108 /min Marisela Streeter lder respiratory rate E&M 18 /min Marisela Rowe noapegmaribel weight E&M 208 [lb_av] Marisela Streeter lder height E&M 66 [in_i] Marisela Streeter er Body Mass Index (Ratio) 36.31 kg/m2 Barrington Harris MD blood pressure, cuff size regular Juancarlos isty Argelia blood pressure, diastolic 60 mm[Hg] Kr isty [employer] blood pressure, systolic 102 mm[Hg] Kri sty Argelia respiratory rate E&M 16 /min Jami Argelia pulse rate 87 /min Jami Argelia oxygen saturation, oximetry 98 % Jami Argelia weight E&M 225 [lb_av] Jami [employer] height E&M 66 [in_i] Jami [employer] Body Mass Index (Ratio) 36.63 kg/m2 Casey Marvin MD blood pressure, diastolic 70 mm[Hg] Kr isty Argelia blood pressure, systolic 120 mm[Hg] Kri sty [employer] blood pressure, cuff size regular Kr isty Argelia oxygen saturation, oximetry 98 % Jami [employer] respiratory rate E&M 17 /min Jami Argelia pulse rate 88 /min Jami Argelia weight E&M 227 [lb_av] Jami [employer] height E&M 66 [in_i] Jami Argelia Body Mass Index (Ratio) 45.67 kg/m2 Jonathan Mcfarland MD blood pressure, cuff size large Efe freed Katelin blood pressure, diastolic, standing 70 mm [Hg] Marisela Katelin blood pressure, systolic, standing 130 mm [Hg] Marisela Katelin oxygen saturation, oximetry 97 % Marisela Katelin respiratory rate E&M 18 /min Marisela Rowe noapgemaribel pulse rate 84 /min Marisela Ferdinand lder weight E&M 283 [lb_av] Marisela Dodgedash lder height E&M 66 [in_i] Marisela Singerdipesh lder Body Mass Index (Ratio) 46.48 kg/m2 Jonathan Mcfarland MD blood pressure, diastolic 68 mm[Hg] Da charles Mario blood pressure, systolic 104 mm[Hg] Dac ia Mario oxygen saturation, oximetry 98 % Zoila Mario respiratory rate E&M 16 /min Zoila V oss pulse rate 82 /min Zoila Mario weight E&M 288 [lb_av] Zoila Mario height E&M 66 [in_i] Zoila Mario Body Mass Index (Ratio) 44.38 kg/m2 Jordy Flores MD blood pressure, cuff size large Kaylen Love blood pressure, diastolic 80 mm[Hg] Kaylen Love blood pressure, systolic 130 mm[Hg] Sonja Love oxygen saturation, oximetry 98 % Miranda Love respiratory rate E&M 16 /min Miranda Love pulse rate 87 /min Miranda Love weight E&M 275 [lb_av] Miranda Love height E&M 66 [in_i] Miranda Love Body Mass Index (Ratio) 43.90 kg/m2 Jordy Flores MD blood pressure, cuff size large Kaylen Love blood pressure, diastolic 80 mm[Hg] Kaylen Love blood pressure, systolic 130 mm[Hg] Sonja Lvoe weight E&M 272 [lb_av] Miranda Love height E&M 66 [in_i] Miranda Love pulse rate 107 /min Miranda Love oxygen saturation, oximetry 93 % Miranda Love respiratory rate E&M 16 /min Miranda Love Body Mass Index (Ratio) 40.35 kg/m2 Jordy Flores MD blood pressure, cuff size large Kaylen Love blood pressure, diastolic 80 mm[Hg] Kaylen Love blood pressure, systolic 130 mm[Hg] Sonja Love oxygen saturation, oximetry 98 % Miranda Love respiratory rate E&M 16 /min Miranda Love pulse rate 124 /min Miranda Love weight E&M 250 [lb_av] Miranda Love height E&M 66 [in_i] Miranda Love blood pressure, resting Yes Jonathan Mcfarland MD Body Mass Index (Ratio) 40.02 kg/m2 Jonathan Mcfarland MD blood pressure, diastolic 90 mm[Hg] Da charles Mario blood pressure, systolic 138 mm[Hg] Dac ia Mario oxygen saturation, oximetry 97 % Zoila Mario respiratory rate E&M 24 /min Zoila V oss pulse rate 89 /min Zoila Mario weight E&M 248 [lb_av] Zoila Mario height E&M 66 [in_i] Zoila Mario Body Mass Index (Ratio) 39.86 kg/m2 Jordy Flores MD blood pressure, diastolic 95 mm[Hg] Henrietta Grande blood pressure, systolic 147 mm[Hg] Sonal Grande oxygen saturation, oximetry 95 % Maddie Harjinder respiratory rate E&M 18 /min Pawan Grande pulse rate 88 /min Maddie bennett weight E&M 247 [lb_av] Maddie bennett height E&M 66 [in_i] Maddie James torrie blood pressure, diastolic 79 mm[Hg] Me mercado Levin blood pressure, systolic 141 mm[Hg] Amalia hernandez Levin pulse rate 100 /min Coleen Levin oxygen saturation, oximetry 98 % Coleen Levin respiratory rate E&M 15 /min Coleen Levin Body Mass Index (Ratio) 38.09 kg/m2 [facility] weight E&M 236 [lb_av] Coleen Levin blood pressure, diastolic 75 mm[Hg] Me mercado Levin blood pressure, systolic 125 mm[Hg] Amalia hernandez Levin pulse rate 88 /min Coleen Levin oxygen saturation, oximetry 97 % Coleen Levin respiratory rate E&M 15 /min Coleen Levin Body Mass Index (Ratio) 40.51 kg/m2 [facility] weight E&M 251 [lb_av] Coleen Levin blood pressure, diastolic 67 mm[Hg] Henrietta Grande blood pressure, systolic 116 mm[Hg] Sonal Grande pulse rate 81 /min Maddie bennett oxygen saturation, oximetry 94 % Maddie Grande respiratory rate E&M 18 /min Pawan stefan Grande Body Mass Index (Ratio) 39.89 kg/m2 Wendi Grande weight E&M 247.2 [lb_av] Maddie garay blood pressure, diastolic 70 mm[Hg] Henrietta Grande blood pressure, systolic 130 mm[Hg] Sonal Grande pulse rate 77 /min Maddie bennett oxygen saturation, oximetry 97 % Maddie Grande respiratory rate E&M 18 /min Pawan Grande Body Mass Index (Ratio) 41.61 kg/m2 Wendi Grande weight E&M 257.8 [lb_av] Maddie garay Body Mass Index (Ratio) 38.09 kg/m2 Anea nick Dawson blood pressure, diastolic 71 mm[Hg] An ramy [facility] blood pressure, systolic 119 mm[Hg] Ane atris [facility] pulse rate 75 /min Aneatris [facility] oxygen saturation, oximetry 96 % Aneatris Brown respiratory rate E&M 17 /min Aneatri s Brown weight E&M 236 [lb_av] Aneatris Brown Body Mass Index (Ratio) 39.22 kg/m2 Anea nick [facility] blood pressure, diastolic 77 mm[Hg] An ramy [facility] blood pressure, systolic 130 mm[Hg] Ane atris [facility] pulse rate 90 /min Aneatris [facility] oxygen saturation, oximetry 97 % Aneatris Brown respiratory rate E&M 18 /min Aneatri s Brown weight E&M 243 [lb_av] Aneatris Brown Body Mass Index (Ratio) 41.95 kg/m2 Carmen ssa Poonam blood pressure, diastolic 80 mm[Hg] Me rogelio Poonam blood pressure, systolic 132 mm[Hg] Amalia mary Poonam pulse rate 88 /min Coleen Poonam oxygen saturation, oximetry 98 % Coleenmary Levin respiratory rate E&M 16 /min Coleen Levin weight E&M 259 [lb_av] Coleen Levin Body Mass Index (Ratio) 42.76 kg/m2 Yung neil Bella blood pressure, diastolic, left arm 68 mm [Hg] Ryannavneet Bella blood pressure, systolic, left arm 109 mm [Hg] Ryannavneet Bella blood pressure, diastolic, right arm 71 m m[Hg] [facility] blood pressure, systolic, right arm 103 m m[Hg] Ryannavneet Bella blood pressure, diastolic 68 mm[Hg] Orozco Bella blood pressure, systolic 109 mm[Hg] Ryan navneet Bella pulse rate 98 /min [facility] oxygen saturation, oximetry 97 % [facility] respiratory rate E&M 16 /min [facility] weight E&M 264 [lb_av] Butch Bella blood pressure, diastolic 55 mm[Hg] Roel Wiggins RN blood pressure, systolic 128 mm[Hg] Jimenez Wiggins RN pulse rate 93 /min Jimenez Wiggins RN oxygen saturation, oximetry 97 % Jimenez Wiggins RN respiratory rate E&M 18 /min Jimenez giles RN Body Mass Index (Ratio) 43.57 kg/m2 Jimenez Wiggins RN weight E&M 269 [lb_av] Jimenez Wiggins RN Body Mass Index (Ratio) 43.80 kg/m2 Inés a Juan blood pressure, diastolic 66 mm[Hg] Ta geoffrey Stueber blood pressure, systolic 120 mm[Hg] Townsend jay Stueber pulse rate 90 /min Bessy Stueber oxygen saturation, oximetry 97 % Bessy Hdezber respiratory rate E&M 22 /min Bessy lord weight E&M 270.4 [lb_av] Bessy Luinorajerardo Body Mass Index (Ratio) 44.87 kg/m2 Yael valdez Katelin blood pressure, diastolic 91 mm[Hg] Ke opali Katelin blood pressure, systolic 154 mm[Hg] Luz herrera Katelin pulse rate 102 /min Marisela Eduardmaddie elenaer oxygen saturation, oximetry 96 % Marisela Katelin respiratory rate E&M 17 /min Marisela Rowe levi weight E&M 277 [lb_av] Marisela Ferdinand parkerer height E&M 66 [in_i] Marisela Ferdinand parkerer blood pressure, diastolic 80 mm[Hg] Ozuna blood pressure, systolic 154 mm[Hg] Ryan Bella pulse rate 97 /min Butch Bella oxygen saturation, oximetry 95 % Butch Bella respiratory rate E&M 18 /min Butch Bella weight E&M 273 [lb_av] Butch Bella blood pressure, diastolic 85 mm[Hg] Roel Wiggins RN blood pressure, systolic 128 mm[Hg] Jimenez Wiggins RN pulse rate 94 /min Jimenez Wiggins RN oxygen saturation, oximetry 96 % Jimenez Wiggins RN respiratory rate E&M 16 /min Jimenez giles RN weight E&M 268 [lb_av] Jimenez Wiggins RN ALLERGIES Allergy Name Onset Date Reaction Criticality Status ANTIBIOTIC Low Criticality active RESULTS Date Observation Value Provider Reference Range Interpretation Location prothrombin time (patient) 12.4 s [facility] 9.1-12.0 High international normalized ratio (INR) 1.2 [facility] 0.8-1.2 calcium, serum 9.2 mg/dL [facility] 8.7-10.2 carbon dioxide, venous blood 26 mmol/L [facility] 18-29 chloride, serum 96 mmol/L [facility] 96-106 potassium, serum 4.4 mmol/L [facility] 3.5-5.2 sodium, serum 137 mmol/L [facility] 277-897 6101/02 /17 urea nitrogen/creatinine ratio, serum 22 [facility] 9-23 eGFR if not 82 mL/min/{1.7 3_m2} [facility] >59 creatinine, serum 0.81 mg/dL [facility] 0.57-1.00 urea nitrogen, blood 18 mg/dL [facility] 6-24 blood glucose, random 343 mg/dL [facility] 65-99 High basophil count, absolute 0.1 x10E3/uL [facility] 0.0-0.2 Eosinophil Absolute Count 0.2 X10E3/UL [facility] 0.0-0.4 monocyte count, blood, automated 0.4 X10E3/UL [facility] 0.1-0.9 lymphocyte count, blood, automated 1.7 X10E3/UL [facility] 0.7-3.1 Absolute Neutrophils 2.9 X10E3/UL [facility] 1.4-7.0 basophils as percent of blood leukocytes 1 % [facility] Not Estab. eosinophils as percent of blood leukocytes 4 % [facility] Not Estab. monocytes as percent of blood leukocytes 7 % [facility] Not Estab. lymphocytes as percent of blood leukocytes 33 % [facility] Not Estab. neutrophils as percent of blood leukocytes 55 % [facility] Not Estab. platelet count 247 X10E3/UL [facility] [id number]/02 /17 red blood cell distribution width 12.5 % [facility] 12.3-15.4 mean corpuscular hemoglobin concentration, RBC 32.3 G/DL [facility] 31.5-35.7 mean corpuscular hemoglobin, RBC 32.5 pg [facility] 26.6-33.0 mean corpuscular volume, RBC 101 fL [facility] 79-97 High hematocrit, blood 40.5 % [facility] 34.0-46.6 hemoglobin, blood 13.1 g/dL [facility] 11.1-15.9 erythrocyte (RBC) count 4.03 X10E6/UL [facility] 3.77-5.28 leukocyte count, blood 5.2 X10E3/UL [facility] 3.4-10.8 bacteria, urine microscopy Few [facility] None seen/Few epithelial cells, urine 0-10 [facility] 0 - 10 RBC, Urine 0-2 /hpf [facility] 0 - 2 WBC urine on microscopy 0-5 /hpf [facility] 0 - 5 urinalysis, microscopic examination See report [facility] nitrate, urine Negative [facility] Negative urobilinogen, urine, semiquantitative (dipstick) 0.2 [facility] 0.2-1.0 bilirubin, urine Negative [facility] Negative hemoglobin, urine, by dipstick Negative [facility] Negative ketones, urine, by test strip Negative [facility] Negative glucose, urine Trace [facility] Negative Abnormal protein, urine, semiquantitative (dipstick) Negative [facility] Negative/Tra ce leukocyte esterase, urine, by dipstick Negative [facility] Negative appearance, urine Clear [facility] Clear urine color Yellow [facility] Yellow pH, urine, semiquantitative 5.0 [facility] 5.0-7.5 specific gravity, body fluid 1.023 [facility] 1.005-1.030 international normalized ratio (INR) 1.3 Zoila Mario Normal prothrombin time (patient) 15.1 s Zoila Mario coagulation managed by Wendi Love RN international normalized ratio (INR) 1.3 Zoila Mario Normal prothrombin time (patient) 15.8 s Zoila Mario coagulation managed by Jimenez Wiggins RN international normalized ratio (INR) 1.3 Zoila Mario Normal prothrombin time (patient) 15.4 s Zoila Mario coagulation managed by Wendi Love RN international normalized ratio (INR) 1.3 Zoila Mario Normal prothrombin time (patient) 15.7 s Zoila Mario prothrombin time (patient) 15.1 s Jami Argelia international normalized ratio (INR) 1.3 Jami Argelia Low anion gap, serum 15.4 [facility] - albumin/globulin ratio, serum 0.7 g/dL [facility] 1.1 - 2.5 Low globulin, serum 4.2 [facility] 2.3 - 3.8 High urea nitrogen/creatinine ratio, serum 23.8 [facility] - Estimated Glomerular Filtration Rate (calc) 79.2 (?) [facility] 59.0 - chloride, serum 96.6 mmol/L [facility] 98.0 - 107.0 Low potassium, serum 3.4 mmol/L [facility] 3.5 - 5.1 Low sodium, serum 136.0 mmol/L [facility] 136.0 - 145.0 creatinine, serum 0.8 mg/dL [facility] 0.5 - 1.0 carbon dioxide, venous blood 24.0 mmol/L [facility] 22.0 - 29.0 albumin, serum 3.0 g/dL [facility] 3.5 - 5.2 Low calcium, serum 8.4 mg/dL [facility] 8.6 - 10.2 Low aspartate aminotransferase (SGOT), serum 18.0 1/L [facility] 0.0 - 32.0 alkaline phosphatase, serum 338.0 1/L [facility] 40.0 - 130.0 High alanine aminotransferase (SGPT), serum 9.0 1/L [facility] 0.0 - 33.0 protein, total, serum 7.2 g/dL [facility] 6.6 - 8.7 bilirubin, serum, total 2.0 mg/dL [facility] 0.0 - 1.2 High urea nitrogen, blood 19.0 mg/dL [facility] 6.0 - 20.0 blood glucose, random 168.0 mg/dL [facility] 74.0 - 99.0 High red blood cell distribution width, size density 66.6 fL [facility] - immature granulocytes, percentage of total cells, blood 0.2 % [facility] - nucleated red blood cells as percent of blood leukocytes 0.0 % [facility] - red blood cell (erythrocyte) count, per high power field 0.0 10*3/UL [facility] - eosinophils as percent of blood leukocytes 4.0 % [facility] neutrophils as percent of blood leukocytes 66.9 % [facility] Absolute Neutrophils 3.5 CELLS/UL [facility] 1.5 - 7.8 basophils as percent of blood leukocytes 1.0 % [facility] - Absolute Basophils 0.1 CELLS/UL [facility] 0.0 - 0.2 monocytes as percent of blood leukocytes 11.3 % [facility] - Absolute Monocytes 0.6 CELLS/UL [facility] 0.2 - 1.0 lymphocytes as percent of blood leukocytes 16.6 % [facility] - Absolute Lymphocytes 0.9 CELLS/UL [facility] 0.9 - 3.9 mean platelet volume 9.2 (?) [facility] - platelet count 474.0 THOUSAND/UL [facility] 100.0 - 400.0 [facility] mean corpuscular hemoglobin concentration, RBC 29.5 G/DL [facility] 31.0 - 38.0 Low mean corpuscular hemoglobin, RBC 23.2 pg [facility] 25.0 - 35.0 Low mean corpuscular volume, RBC 78.7 fL [facility] 75.0 - 100.0 hematocrit, blood 28.1 % [facility] 35.0 - 55.0 Low hemoglobin, blood 8.3 g/dL [facility] 11.5 - 16.5 Low erythrocyte count, whole blood 3.6 MILLION/UL [facility] 3.5 - 5.5 trichomonas vaginalis, urine None seen [facility] urine crystals, microscopic None seen [facility] casts, urine, microscopic None seen [facility] mucus on urinalysis None seen [facility] Not Estab. bacteria, urine microscopy Moderate [facility] None seen / Few epithelial cells, urine > 10 / lpf [facility] 0 - 10 /lpf (non renal) RBC urine by microscopy 0 - 3 /hpf [facility] 0 - 3 /hpf WBC urine on microscopy 6 - 10 /hpf [facility] 0 - 5 /hpf Nitrite Urine Negative [facility] Negative urobilinogen, urine 2.0 E.U./dL mg/dl [facility] 0.2 - 1.0 Abnormal specific gravity, urine 1.015 [facility] 1.001 - 1.035 KETONES, URINE Negative [facility] Negative bilirubin, urine Negative [facility] Negative Glucose Urine Negative [facility] Negative clarity, urine, point Cloudy [facility] Clear Abnormal urine color Yellow [facility] yellow to asha activated partial thromboplastin time 28.2 SECONDS [facility] 23.0 - 33.0 prothrombin time (patient) 13.2 s [facility] 9.0 - 11.5 High international normalized ratio (INR) 1.3 [facility] 0.9 - 1.1 High magnesium, serum 1.8 mg/dL [facility] 1.6 - 2.6 urea nitrogen/creatinine ratio, serum 22.2 [facility] - Estimated Glomerular Filtration Rate (calc) 69.1 (?) [facility] 59.0 - chloride, serum 96.1 mmol/L [facility] 98.0 - 107.0 Low potassium, serum 3.8 mmol/L [facility] 3.5 - 5.1 sodium, serum 136.0 mmol/L [facility] 136.0 - 145.0 creatinine, serum 0.9 mg/dL [facility] 0.5 - 1.0 carbon dioxide, venous blood 25.0 mmol/L [facility] 22.0 - 29.0 calcium, serum 8.5 mg/dL [facility] 8.6 - 10.2 Low urea nitrogen, blood 20.0 mg/dL [facility] 6.0 - 20.0 blood glucose, random 33.0 mg/dL [facility] 74.0 - 99.0 Critical low prothrombin time (patient) 12.9 s [facility] 9.0 - 11.5 High international normalized ratio (INR) 1.3 [facility] 0.9 - 1.1 High pro brain natriuretic peptide 1417.0 pg/mL [facility] 0.0 - 125.0 High anion gap, serum 14.9 [facility] - albumin/globulin ratio, serum 1.2 g/dL [facility] 1.1 - 2.5 globulin, serum 2.8 [facility] 2.3 - 3.8 urea nitrogen/creatinine ratio, serum 21.0 [facility] - Estimated Glomerular Filtration Rate (calc) 61.2 (?) [facility] 59.0 - chloride, serum 92.1 mmol/L [facility] 98.0 - 107.0 Low potassium, serum 3.9 mmol/L [facility] 3.5 - 5.1 sodium, serum 131.0 mmol/L [facility] 136.0 - 145.0 Low creatinine, serum 1.0 mg/dL [facility] 0.5 - 1.0 High carbon dioxide, venous blood 24.0 mmol/L [facility] 22.0 - 29.0 albumin, serum 3.4 g/dL [facility] 3.5 - 5.2 Low calcium, serum 8.6 mg/dL [facility] 8.6 - 10.2 aspartate aminotransferase (SGOT), serum 40.0 1/L [facility] 0.0 - 32.0 High alkaline phosphatase, serum 257.0 1/L [facility] 40.0 - 130.0 High alanine aminotransferase (SGPT), serum 56.0 1/L [facility] 0.0 - 33.0 High protein, total, serum 6.2 g/dL [facility] 6.6 - 8.7 Low bilirubin, serum, total 1.5 mg/dL [facility] 0.0 - 1.2 High urea nitrogen, blood 21.0 mg/dL [facility] 6.0 - 20.0 High blood glucose, random 123.0 mg/dL [facility] 74.[facility] - 99.0 High red blood cell distribution width, size density 52.7 fL [facility] - immature granulocytes, percentage of total cells, blood 0.3 % [facility] - nucleated red blood cells as percent of blood leukocytes 0.0 % [facility] - red blood cell (erythrocyte) count, per high power field 0.0 10*3/UL [facility] - eosinophils as percent of blood leukocytes 1.8 % [facility] - neutrophils as percent of blood leukocytes 61.5 % [facility] - Absolute Neutrophils 4.1 CELLS/UL [facility] 1.5 - 7.8 basophils as percent of blood leukocytes 0.6 % [facility] - Absolute Basophils 0.0 CELLS/UL [facility] 0.0 - 0.2 monocytes as percent of blood leukocytes 11.8 % [facility] - Absolute Monocytes 0.8 CELLS/UL [facility] 0.2 - 1.0 lymphocytes as percent of blood leukocytes 24.0 % [facility] - Absolute Lymphocytes 1.6 CELLS/UL [facility] 0.9 - 3.9 mean platelet volume 9.8 (?) [facility] - platelet count 375.0 THOUSAND/UL [facility] 100.0 - 400.0 mean corpuscular hemoglobin concentration, RBC 29.3 G/DL [facility] 31.0 - 38.0 Low mean corpuscular hemoglobin, RBC 25.1 pg [facility] 25.0 - 35.0 mean corpuscular volume, RBC 85.8 fL [facility] 75.0 - 100.0 hematocrit, blood 30.7 % [facility] 35.0 - 55.0 Low hemoglobin, blood 9.0 g/dL [facility] 11.5 - 16.5 Low erythrocyte count, whole blood 3.6 MILLION/UL [facility] 3.5 - 5.5 hemoglobin A1C, blood, as % of total hemoglobin 11.0 % [facility] 4.0 - 5.6 High magnesium, serum 1.7 mg/dL [facility] 1.6 - 2.6 urea nitrogen/creatinine ratio, serum 18.6 [facility] - Estimated Glomerular Filtration Rate (calc) 92.7 (?) [facility] 59.0 - chloride, serum 97.2 mmol/L [facility] 98.0 - 107.0 Low potassium, serum 4.5 mmol/L [facility] 3.5 - 5.1 sodium, serum 137.0 mmol/L [facility] 136.0 - 145.0 creatinine, serum 0.7 mg/dL [facility] 0.5 - 1.0 carbon dioxide, venous blood 25.0 mmol/L [facility] 22.0 - 29.0 calcium, serum 9.4 mg/dL [facility] 8.6 - 10.2 urea nitrogen, blood 13.0 mg/dL [facility] 6.0 - 20.0 blood glucose, random 308.0 mg/dL [facility] 74.0 - 99.0 High prothrombin time (patient) 11.2 s [facility] 9.0 - 11.5 international normalized ratio (INR) 1.0 [facility] 0.9 - 1.1 thyroid stimulating hormone, serum 3.100 ??IU/ML [facility] 0.270 - 4.200 pro brain natriuretic peptide 2003.0 pg/mL [facility] 0.0 - 125.0 High very low density lipoproteins 27.0 mg/dL [facility] 5.0 - 40.0 LDL/HDL (low-density lipoprotein/high-de nsity lipoprotein) ratio 1.6 RATIO [facility] - lipoprotein, beta, serum, point, quantitative, calculated 78.0 (?) [facility] 0.0 - 100.0 HDL cholesterol, serum 48.0 mg/dL [facility] 45.0 - 65.0 cholesterol, serum 153.0 mg/dL [facility] 0.0 - 200.0 triglyceride, serum, fasting 135.0 mg/dL [facility] 0.0 - 150.0 anion gap, serum 13.6 [facility] - albumin/globulin ratio, serum 1.6 g/dL [facility] 1.1 - 2.5 globulin, serum 2.6 [facility] 2.3 - 3.8 urea nitrogen/creatinine ratio, serum 17.1 [facility] - Estimated Glomerular Filtration Rate (calc) 92.7 (?) [facility] 59.0 - chloride, serum 103.4 mmol/L [facility] 98.0 - 107.0 potassium, serum 4.7 mmol/L [facility] 3.5 - 5.1 sodium, serum 141.0 mmol/L [facility] 136.0 - 145.0 creatinine, serum 0.7 mg/dL [facility] 0.5 - 1.0 carbon dioxide, venous blood 24.0 mmol/L [facility] 22.0 - 29.0 albumin, serum 4.1 g/dL [facility] 3.5 - 5.2 calcium, serum 9.2 mg/dL [facility] 8.6 - 10.2 aspartate aminotransferase (SGOT), serum 26.0 1/L [facility] 0.0 - 32.0 alkaline phosphatase, serum 131.0 1/L [facility] 40.0 - 130.0 High alanine aminotransferase (SGPT), serum 28.0 1/L [facility] 0.0 - 33.0 protein, total, serum 6.7 g/dL [facility] 6.6 - 8.7 bilirubin, serum, total 0.4 mg/dL [facility] 0.0 - 1.2 urea nitrogen, blood 12.0 mg/dL [facility] 6.0 - 20.0 blood glucose, random 202.0 mg/dL [facility] 74.0 - 99.0 High red blood cell distribution width, size density 47.6 fL [facility] - immature granulocytes, percentage of total cells, blood 0.2 % [facility] - nucleated red blood cells as percent of blood leukocytes 0.0 % [facility] - red blood cell (erythrocyte) count, per high power field 0.0 10*3/UL [facility] - eosinophils as percent of blood leukocytes 1.3 % [facility] - neutrophils as percent of blood leukocytes 66.3 % [facility] - Absolute Neutrophils 4.0 CELLS/UL [facility] 1.5 - 7.8 basophils as percent of blood leukocytes 0.7 % [facility] - Absolute Basophils 0.0 CELLS/UL [facility] 0.0 - 0.2 monocytes as percent of blood leukocytes 6.5 % [facility] - Absolute Monocytes 0.4 CELLS/UL [facility] 0.2 - 1.0 lymphocytes as percent of blood leukocytes 25.0 % [facility] - Absolute Lymphocytes 1.5 CELLS/UL [facility] 0.9 - 3.9 mean platelet volume 10.6 (?) [facility] - platelet count 331.0 THOUSAND/UL [facility] 100.0 - 400.0 mean corpuscular hemoglobin concentration, RBC 32.1 G/DL [facility] 31.0 - 38.0 mean corpuscular hemoglobin, RBC 31.5 pg [facility] 25.0 - 35.0 mean corpuscular volume, RBC 98.3 fL [facility] 75.0 - 100.0 hematocrit, blood 34.6 % [facility] 35.0 - 55.0 Low hemoglobin, blood 11.1 g/dL [facility] 11.5 - 16.5 Low erythrocyte count, whole blood 3.5 MILLION/UL [facility] 3.5 - 5.5 trichomonas vaginalis, urine None seen [facility] urine crystals, microscopic None seen [facility] casts, urine, microscopic None seen [facility] mucus on urinalysis None seen [facility] Not Estab. bacteria, urine microscopy Many [facility] None seen / Few epithelial cells, urine > 10 / lpf [facility] 0 - 10 /lpf (non renal) RBC urine by microscopy 0 - 3 /hpf [facility] 0 - 3 /hpf WBC urine on microscopy 0 - 5 /hpf [facility] 0 - 5 /hpf Nitrite Urine Positive [facility] Negative urobilinogen, urine 0.2 E.U./dL mg/dl [facility] 0.2 - 1.0 specific gravity, urine 1.020 [facility] 1.001 - 1.035 KETONES, URINE Negative [facility] Negative bilirubin, urine Negative [facility] Negative Glucose Urine Trace [facility] Negative clarity, urine, point Clear [facility] Yellow urine color Yellow [facility] yellow to asha hemoglobin A1C, blood, as % of total hemoglobin 8.8 % [facility] 4.0 - 5.6 High thyroid stimulating hormone, serum 2.59 u[IU]/mL [facility] 0.270-4.20 Normal hemoglobin A1C, blood, as % of total hemoglobin 7.4 % [facility] Normal basophils, absolute, manual 0.05 K/UL [facility] 0.0-0.1 Normal basophils as percent of blood leukocytes 0.7 % [facility] 0.3-0.9 Normal eosinophils, absolute, manual 0.15 K/UL [facility] 0.1-0.5 Normal eosinophils as percent of blood leukocytes 2.1 % [facility] 1.1-7.6 Normal monocyte count, blood 0.52 10*3/mm3 [facility] 0.2-0.7 Normal monocytes as percent of blood leukocytes 7.3 % [facility] 4.2-11.2 Normal lymphocytes as percent of blood leukocytes 2.21 K/UL [facility] 0.6-3.4 Normal lymphocytes, absolute 30.7 % [facility] 19.8-46.2 Normal neutrophil count, absolute 4.25 K/uL [facility] 1.9-5.9 Normal neutrophils as percent of blood leukocytes 59.2 % [facility] 42.7-72.4 Normal mean platelet volume 8.3 % [facility] 7.4-9.9 Normal red blood cell distribution width 11.6 % [facility] 10.9-14.6 Normal platelet count 363 10*3/mm3 [facility] 165-429 Normal mean corpuscular hemoglobin concentration, RBC 33.4 % [facility] 32.5-34.5 Normal mean corpuscular hemoglobin, RBC 31.1 pg [facility] 21.5-33.3 Normal mean corpuscular volume, RBC 93 fL [facility] 76-98 Normal hematocrit, blood 39.8 % [facility] 34.4-47.3 Normal hemoglobin, blood 13.3 g/dL [facility] 11.8-15.6 Normal erythrocyte (RBC) count 4.27 M/UL [facility] 3.8-5.5 Normal leukocyte count, blood 7.2 10*3/mm3 [facility] 3.7-8.9 Normal LDL/HDL (low-density lipoprotein/high-de nsity lipoprotein) ratio 0.9 RATIO [facility] 0.2-4.3 Normal VLDL cholesterol 18 mg/dL [facility] 8-41 Normal lipoprotein, beta, serum, point, quantitative, calculated 44 mg/dL [facility] 0-130 Normal cholesterol/HDL ratio, serum, percent 2.2 ratio [facility] 1.5-5.6 Normal HDL cholesterol, serum 50 mg/dL [facility] 65 Low triglyceride, serum, fasting 91 mg/dL [facility] Normal cholesterol, serum 112 mg/dL [facility] 0-199 Normal bilirubin, serum, total 0.2 mg/dL [facility] 0-1.2 Normal alanine aminotransferase (SGPT), serum 21 1/L [facility] 0-33 Normal aspartate aminotransferase (SGOT), serum 16 1/L [facility] 0-32 Normal alkaline phosphatase, serum 106 1/L [facility] 35-104 High albumin/globulin ratio, serum 1.4 ratio [facility] 1.0-2.6 Normal globulin, serum 3.1 [facility] 1.6-4.0 Normal albumin, serum 4.3 g/dL [facility] 3.97-4.94 Normal protein, total, serum 7.4 g/dL [facility] 6.6-8.7 Normal calcium, serum 10.2 mg/dL [facility] 8.6-10.0 High blood glucose, random 73 mg/dL [facility] 74-109 Low eGFR if 135 mL/min/{1.7 3_m2} [facility] >60 Normal eGFR if not 112 mL/min/{1.7 3_m2} [facility] >60 Normal urea nitrogen/creatinine ratio, serum 18.3 ratio [facility] 8.0-25.0 Normal creatinine, serum 0.6 mg/dL [facility] 0.50-0.90 Normal urea nitrogen, blood 11 mg/dL [facility] 6-20 Normal carbon dioxide, venous blood 27 mmol/L [facility] 22-29 Normal chloride, serum 99 MEQ/L [facility] 98-107 Normal potassium, serum 4.3 MEQ/L [facility] 3.5-5.1 Normal sodium, serum 140 MEQ/L [facility] 136-145 Normal international normalized ratio (INR) 0.9 [facility] potassium, serum 4.2 mmol/L [facility] sodium, serum 141 mmol/L [facility] creatinine, serum 0.70 mg/dL [facility] platelet count 282 10*3/uL [facility] hematocrit, blood 36.9 % [facility] HISTORY OF MEDICATION USE Medication Status Instructions Dates Provider Indications Com ments Gemtesa 75 mg tablet active once a day Ynes Allen NP lorazepam 0.5 mg tablet completed - 11/15 Ynes Allen NP lorazepam 0.5 mg tablet active as needed Ynes Allen NP furosemide 40 mg tablet active daily Ynes Allen NP Otis Bowers U-100 Insulin 100 unit/mL (3 mL) insulin pen active 18 units daily Ynes Allen NP potassium chloride 20 mEq tablet,ER particles/crystal s active daily Ynes Allen NP metoprolol succinate 100 mg tablet extended release 24 hr active Take 1 tablet by mouth once a day Ynes Allen NP magnesium oxide 400 mg magnesium capsule active once daily Jimenez Wiggins RN spironolactone 25 mg tablet active 1/2 tab daily Jimenez Wiggins RN cefadroxil 500 mg capsule active Take 2 capsule by mouth twice a day Elenita Nieto cyclobenzaprine 5 mg tablet active as needed Ynes Allen NP Xarelto 20 mg tablet active Take 1 tablet by mouth once a day 02/03 Marisela Thomason diltiazem HCl 30 mg tablet completed TAKE 1 TABLET BY MOUTH THREE TIMES DAILY 02/02 - 11/15 Ynes Allen NP Farxiga 10 mg tablet completed TAKE 1 TABLET BY MOUTH EVERY DAY 10/11 - 10/23 Elenitatracey Nieto Entresto 24-26 mg tablet active TAKE 1 TABLET BY MOUTH TWICE DAILY 10/11 [facility] carvedilol 25 mg tablet completed TAKE 1 TABLET BY MOUTH TWICE DAILY 10/11 - 10/23 Elenita Garciaple trospium 20 mg tablet active Eliud Herbert diltiazem HCl 30 mg tablet completed TAKE 1 TABLET BY MOUTH TWICE DAILY 04/06 - 02/02 [facility] diltiazem HCl 30 mg tablet completed Take 1 tablet by mouth three times a day TAKE ONE TABLET BY MOUTH THREE TIMES DAILY 11/16 - 04/06 Kylee Dawson RN Entresto 24-26 mg tablet completed Take 1 tablet by mouth twice a day TAKE ONE TABLET BY MOUTH TWICE DAILY 11/16 - 10/11 [facility] Xarelto 20 mg tablet completed Take 1 tablet by mouth once a day TAKE ONE TABLET BY MOUTH EVERY DAY 11/16 - 02/03 Marisela Thomason Entresto 24-26 mg tablet completed TAKE ONE TABLET BY MOUTH TWICE DAILY 11/03 - 11/16 Hernan Jenkins Farxiga 10 mg tablet completed Take 1 tablet by mouth once a day 06/01 - 10/11 Diego Tresiba FlexTouch U-100 100 unit/mL (3 mL) insulin pen active Eliud Cliftonzai Entresto 24-26 mg tablet completed - 11/16 Hernan Jenkins Dexcom G6 Sensor device active Eliud Etiennezai diltiazem HCl 30 mg tablet completed TAKE ONE TABLET BY MOUTH THREE TIMES DAILY 05/05 - 11/16 Hernan Jenkins carvedilol 25 mg tablet completed TAKE ONE TABLET BY MOUTH TWICE DAILY 02/15 - 10/11 Diego potassium chloride 20 mEq tablet,ER particles/crystal s completed - 10/23 Elenita Ruple Entresto 24-26 mg tablet completed ONE TABLET BY MOUTH TWICE DAILY 06/22 - 02/17 Eliud Sulmamedzai Xarelto 20 mg tablet completed TAKE ONE TABLET BY MOUTH EVERY DAY 05/27 - 11/16 Hernan Jenkins doxycycline hyclate 100 mg capsule completed 1 capsule by mouth twice a day 03/06 - 11/15 Ynes Allen NP Lexapro 10 mg tablet active tablet by mouth once a day 12/08 Marisela Thomason Humalog U-100 Insulin 100 unit/mL solution active 14 units with meals Ynes Allen NP Lantus U-100 Insulin 100 unit/mL solution completed 19 unit subcutaneously every morning 12/08 - 11/15 Ynes Allen NP nortriptyline 10 mg capsule active Take 1 tablet by mouth once a day 07/03 Tila Nelson docusate sodium 100 mg tablet active take one pill twice a day 07/03 Marisela Thomason CLINDAMYCIN HCL 300 MG ORAL CAPSULE completed one tablet three times daily for 14 days 11/18 - 12/29 Robin Mcgraw cholecalciferol (vitamin D3) 125 mcg (5,000 unit) tablet active tablet by mouth once a week 12/08 Marisela Thomason FEOSOL 325 (65 FE) MG ORAL TABLET completed TAKE 2 TABLETS DAILY 10/16 - 05/12 Marisela Thomason levothyroxine 75 mcg tablet active Take 1 tablet by mouth once a day 10/16 Ynes Allen NP GLIPIZIDE 5 MG ORAL TABLET completed TAKE ONE TABLET TWICE DAILY 10/16 - 07/03 Tila Nelson potassium chloride 20 mEq tablet extended release completed 1/2 tablet by mouth once a day - 06/22 Eliud Herbert AMIODARONE HCL 200 MG ORAL TABLET completed TK 1 T PO D 04/20 - Daniel Harris MD #[id number], 30 days supply, Prescribed by PASTORA FLORES, Filled 04/20/2017 Xarelto 20 mg tablet completed TAKE ONE TABLET BY MOUTH DAILY 10/15 - 05/27 Lavonshea Atkins ADULT ASPIRIN EC LOW STRENGTH 81 MG ORAL TABLET DELAYED RELEASE completed Take one tab daily 04/29 - 10/16 Pastora Flores MD diltiazem HCl 30 mg tablet completed Take 1 tablet by mouth three times a day 03/22 - 05/05 Eliud Herbert SENNA-S 8.6-50 MG ORAL TABLET completed Take 1 tab daily 02/23 - 05/12 Maddie Grande AMIODARONE HCL 200 MG ORAL TABLET completed ONE TAB DAILY 02/23 - 04/29 Hina Man RN furosemide 40 mg tablet completed Take 1 tablet by mouth once a day - 10/31 Eliud Herbert JANUVIA 100 MG ORAL TABLET completed take once a day 02/07 - 10/16 Pastora Flores MD LEVOFLOXACIN 500 MG ORAL TABLET completed take once a day 02/07 - 02/23 Molly Lucia RN ELIQUIS 5 MG ORAL TABLET completed one tablet twice daily 01/26 - 05/10 Fidelia Miranda RN BACTROBAN NASAL 2 % NASAL OINTMENT completed Apply to each nostril for 1 week 01/03 - 02/23 Molly Lucia RN ELIQUIS 5 MG ORAL TABLET completed one tablet twice daily 10/18 - 05/12 Marisela Thomason omeprazole 20 mg tablet,delayed release (DR/EC) active 1 tablet by mouth once a day 12/14 Marisela Thomason PAROXETINE HCL 20 MG ORAL TABLET completed once daily - 02/07 Pastora Flores MD NORTRIPTYLINE HCL 10 MG ORAL CAPSULE completed 2 tabs at bed time - 10/16 Pastora Flores MD oxybutynin chloride 5 mg tablet active tablet by mouth once a day Daniel Harris MD TRAMADOL HCL TABLET completed 50 mg once daily - 05/12 Zoila Mario MULTIVITAMINS ORAL CAPSULE completed ONE TAB. DAILY - 10/16 Pastora Flores MD CIPRO 500 MG ORAL TABLET completed ONE TAB TWICE DAILY 10/27 - 05/12 Aneatris Brown TRAMADOL HCL 50 MG ORAL TABLET completed po bid 10/27 - 05/12 Aneatris Brown GABAPENTIN 300 MG ORAL CAPSULE completed take as directed - 05/12 Marisela Thomason RANITIDINE HCL 150 MG ORAL CAPSULE completed 1 tab twice daily - 05/12 Maddie Grande SIMVASTATIN 20 MG ORAL TABLET completed ONE TAB. DAILY 02/26 - 10/27 Pastora Flores MD AMOXICILLIN 875 MG ORAL TABLET completed po bid 10/28 - 05/12 Aneatris Brown DITROPAN XL 5 MG ORAL TABLET EXTENDED RELEASE 24 HOUR completed 1 tab 3 times daily - 05/12 Aneatris Brown CYCLOBENZAPRINE HCL 10 MG ORAL TABLET completed take one at bedtime 01/23 - 05/12 Aneatris Brown carvedilol 25 mg tablet completed Take 1 tablet by mouth twice a day 11/12 - 06/01 Eliud Herbert lisinopril 5 mg tablet completed 1 tablet by mouth once a day 10/28 - 06/22 Marisela Thomason HUMALOG MIX 50/50 (50-50) 100 UNIT/ML SUBCUTANEOUS SUSPENSION completed 18 units in AM, 10 units in PM 11/19 - 10/16 Pastora Flores MD VITAMIN D (ERGOCALCIFEROL) 66818 UNIT ORAL CAPSULE completed one tab weekly 10/16 - 05/12 Coleen Levin SIMVASTATIN 40 MG ORAL TABLET completed one tab daily 10/16 - 05/28 Pastora Flores MD METFORMIN HCL 1000 MG ORAL TABLET completed one tab twice daily 10/16 - 05/12 Miranda Love VESICARE 5 MG ORAL TABLET completed one tab daily 10/16 - 05/28 Jimenez Wiggins RN ACTOS 15 MG ORAL TABLET completed one tab daily 10/16 - 05/12 Marisela Thomason SOCIAL HISTORY Date Observation Value Provider drug use no Ynes lincoln NP alcohol use no Ynes lincoln NP passive cigarette sm karthik exposure no Ynes Allen NP smoking status Never smoker Ynes rainey NP Exercise counseling Yes Ynes Allen NP drug use no Eliud Ahmedzai alcohol use no Eliud Ozunamedzai passive cigarette sm karthik exposure no Eliud Cliftonzacourtney smoking status Never smoker Eliud Ozunamedzacourtney drug use no Eliud Ahmedzai alcohol use no Eliud Ahmedzai passive cigarette sm karthik exposure no Eliud Ahmedzai smoking status Never smoker Eliud Ozunamedzacourtney drug use no Eliud Ahmedzai alcohol use no Eliud Palacioscoutrney passive cigarette sm karthik exposure no Eliud Palacioscourtney smoking status Never smoker Eliud Palacioscourtney drug use no Eliud Herbert alcohol use no Eliud Palacioscourtney passive cigarette sm karthik exposure no Eliud Palacioscourtney smoking status Never smoker Eliud Palacioscourtney social history reviewed E&M revi ewed - no changes required Eliud Etiennenino social history reviewed E&M revi ewed - no changes required Pastora Flores MD social history E&M Marital Statu s: Driss burciaga with family/friends E thnicity: Smoking History: P tisha has never smoked. Eliud Herbert physical exercise, f requency, days per week no [place] caffeine use, averag e drinks per day 1+ Eden Felix passive cigarette sm karthik exposure no Eden Felix smoking status Never smoker [place] social history reviewed E&M revi ewed - no changes required Eliud Etiennenino social history reviewed E&M revi ewed - no changes required Eliud Herbert physical exercise, f requency, days per week no Cinthya Sabillon caffeine use, averag e drinks per day 1+ Cinthya Sabillon passive cigarette sm karthik exposure no Cinthya Sabillon smoking status Never smoker Cinthya Powers social history reviewed E&M revi ewed - no changes required Eliud Herbert physical exercise, f requency, days per week no Lucinda Julius caffeine use, averag e drinks per day 1+ Lucinda Julius passive cigarette sm karthik exposure no Lucinda [place] smoking status Never smoker Lucinda Sarah Beth juan social history reviewed E&M revi ewed - no changes required Eliud Herbert smoking status Never smoker Dionne Hollis elsi social history reviewed E&M revi ewed - no changes required Eliud Herbert smoking status Never smoker Saloni Huynh social history E&M Marital Statu s: L patrica with family/friends E thnicity: S moking History: P tisha has never smoked. Eliud Herbert social history reviewed E&M revi ewed - no changes required Eliud Herbert social history E&M Marital Statu s: L patrica with family/friends E thnicity: Smoking History: P tisha has never smoked. Mia Ladd social history reviewed E&M revi ewed - no changes required Mia Ladd physical exercise, f requency, days per week no Gwendolyn Foster caffeine use, averag e drinks per day 1+ Gwendolyn Cristian passive cigarette sm karthik exposure no Gwendolyn Foster smoking status Never smoker Gwendolyn Johnnie downing social history E&M Marital Statu s: L patrica with family/friends E thnicity: Smoking History: P tisha has never smoked. Pastora Flores MD social history reviewed E&M revi ewed - no changes required Pastora Flores MD physical exercise, f requency, days per week no Marisela Thomason caffeine use, averag e drinks per day 1+ Marisela Thomason passive cigarette sm karthik exposure no Marisela Thomason smoking status Never smoker Marisela cuevas social history E&M Marital Statu s: L patrica with family/friends E thnicity: Smoking History: P tisha has never smoked. Pastora Flores MD social history reviewed E&M sol ewed - no changes required Eduar Cotton smoking status Never smoker Rylee Keshawn rockwell physical exercise, f requency, days per week no Rylee Hook caffeine use, averag e drinks per day 1+ Rylee Hook passive cigarette sm karthik exposure no Rylee Fernandezafford social history E&M Marital Statu s: Driss burciaga with family/friends E thnicity: Smoking History: P tisha has never smoked. Pastora Flores MD physical exercise, f requency, days per week no Maddie Grande caffeine use, averag e drinks per day 1+ Maddie Grande passive cigarette sm karthik exposure no Maddie Grande smoking status Never smoker Maddie Ferreira social history E&M Marital Statu s: Driss burciaga with family/friends E thnicity: Smoking History: P tisha has never smoked. Pastora Flores MD social history reviewed E&M sol ewed - no changes required Pastora Flores MD physical exercise, f requency, days per week no Cal Juarez alcohol use, average drinks per day none Cal Juarez alcohol use no Jordan Juarez caffeine use, averag e drinks per day 1+ Jordan Juarez drug use no Cal Juarez passive cigarette sm karthik exposure no Cal Juarez smoking status Never smoker [place] Ann Mariemy verónica physical exercise, f requency, days per week no Tila Nelson alcohol use, average drinks per day none Tila Nelson alcohol use no Tila vazquez caffeine use, averag e drinks per day 1+ Tila Nelson drug use no Tila vazquez passive cigarette sm karthik exposure no Tila Nelson smoking status Never smoker Tila rAango joce social history reviewed E&M revi ewed - no changes required Pastora Flores MD social history E&M Marital Statu s: L patrica with family/friends E thnicity: Smoking History: P atjulius has never smoked. Pastora Flores MD social history reviewed E&M revi ewed - no changes required Pastora Flores MD number of grandchildren Pastora Flores MD T felipe Flores MD physical exercise, f requency, days per week no Maddie Grande alcohol use, average drinks per day none Maddie Grande alcohol use no Maddie James donald caffeine use, averag e drinks per day 1+ Maddie Grande drug use no Maddie James donald passive cigarette sm karthik exposure no Maddie Grande smoking status Never smoker Maddie Ferreira social history reviewed E&M revi ewed - no changes required Robin Mcgraw social history E&M Marital Statu s: L patrica with family/friends E thnicity: Smoking History: P tisha has never smoked. Robin Mcgraw physical exercise, f requency, days per week no Marisela Thomason alcohol use, average drinks per day none Marisela Thomason alcohol use no Marisela parkerer caffeine use, averag e drinks per day 1+ Robin Mcgraw drug use no Marisela hu passive cigarette sm karthik exposure no Marisela Katelin smoking status Never smoker Marisela cuevas social history E&M Marital Statu s: L patrica with family/friends E thnicity: Smoking History: P tisha has never smoked. Jasper Mcfarland MD social history reviewed E&M revi ewed - no changes required Jasper Mcfarland MD physical exercise, f requency, days per week no Jordan Juarez alcohol use, average drinks per day none Jordan Juarez alcohol use no Cal Juarez caffeine use, averag e drinks per day yes Jordan Juarez drug use no Jordan Juarez passive cigarette sm karthik exposure no Jordan Juarez smoking status Never smoker [facility] social history reviewed E&M revcourtney ewed - no changes required Pastora Flores MD physical exercise, f requency, days per week no Marisela Thomason alcohol use, average drinks per day none Marisela Thomason alcohol use no Marisela parkerer caffeine use, averag e drinks per day yes Marisela Thomason drug use no Marisela Streeter lder passive cigarette sm karthik exposure no Marisela Thomason smoking status Never smoker Zoila Mario social history E&M Marital Statu s: L patrica with family/friends E thnicity: Smoking History: P tisha has never smoked. Daniel Harris MD social history reviewed E&M revi ewed - no changes required Daniel Harris MD physical exercise, f requency, days per week no Jami [employer] alcohol use, average drinks per day none Jami Argelia alcohol use no Jami [employer] caffeine use, averag e drinks per day yes Jami [employer] drug use no Jami Argelia passive cigarette sm karthik exposure no Jami Argelia smoking status Never smoker Jami [employer] social history reviewed E&M revi ewed - no changes required Jory Marvin MD number of grandchildren Jory Marvin MD physical exercise, f requency, days per week no Jami [employer] alcohol use, average drinks per day none Jami Argelia alcohol use no Jami Argelia caffeine use, averag e drinks per day yes Jami [employer] drug use no Jami Argelia passive cigarette sm karthik exposure no Jami Argelia smoking status Never smoker Jami Argelia social history reviewed E&M revi ewed - no changes required Julia Mccann physical exercise, f requency, days per week no Mariselajavier Thomason alcohol use, average drinks per day none Mariselajavier Thomason alcohol use no Marisela Ferdinand parkerer caffeine use, averag e drinks per day yes Marisela Katelin drug use no Marisela Dahllewis parkerer passive cigarette sm karthik exposure no Marisela Dahltania smoking status Never smoker Marisela Singerlashae cuevas social history reviewed E&M revi ewed - no changes required Da Artis physical exercise, f requency, days per week no Ziola Mario alcohol use, average drinks per day none Ozila Mario alcohol use no Zoila Mario caffeine use, averag e drinks per day yes Zoila Mario drug use no Zoila Mario passive cigarette sm karthik exposure no Zoila Mario smoking status Never smoker Zoila Mario social history reviewed E&M revi ewed - no changes required Pastora Flores MD physical exercise, f requency, days per week no Miranda Love alcohol use, average drinks per day none Miranda Love alcohol use no Miranda Love caffeine use, averag e drinks per day yes Miranda Love drug use no Miranda Love passive cigarette sm karthik exposure no Miranda Love smoking status Never smoker Miranda Love social history reviewed E&M revi ewed - no changes required Pastora Flores MD physical exercise, f requency, days per week no Miranda Love alcohol use, average drinks per day none Miranda Love alcohol use no Miranda Love caffeine use, averag e drinks per day yes Miranda Love drug use no Mirnada Love passive cigarette sm karthik exposure no Miranda Love smoking status Never smoker Miranda Love social history reviewed E&M revi ewed - no changes required Pastora Flores MD physical exercise, f requency, days per week no Miranda Love alcohol use, average drinks per day none Miranda Love alcohol use no Miranda Love caffeine use, averag e drinks per day yes Miranda Love drug use no Miranda Love passive cigarette sm karthik exposure no Miranda Love smoking status Never smoker Miranda Love social history E&M Marital Statu s: L patrica with family/friends E thnicity: Smoking History: P tisha has never smoked. Jasper Mcfarland MD number of grandchildren Jasper Mcfarland MD social history reviewed E&M sol ewed - no changes required Jasper Mcfarland MD physical exercise, f requency, days per week no Zoila Mario alcohol use, average drinks per day none Zoila Mario alcohol use no Zoila Mario caffeine use, averag e drinks per day yes Zoila Mario drug use no Zoila Mario passive cigarette sm karthik exposure no Zoila Mario smoking status Never smoker Zoila Mario social history reviewed E&M revi ewed - no changes required Pastora Flores MD physical exercise, f requency, days per week no Maddie Grande alcohol use, average drinks per day none Maddie Grande alcohol use no Maddie russellon caffeine use, averag e drinks per day yes Maddie Grande drug use no Maddie Jaems nson passive cigarette sm karthik exposure no Maddie Grande smoking status Never smoker Maddie Ferreira social history reviewed E&M revi ewed - no changes required Coleen Levin physical exercise, f requency, days per week no Coleen Levin alcohol use, average drinks per day none Coleen Novoaann alcohol use no Coleen Novoaann caffeine use, averag e drinks per day yes Coleen Levin drug use no Coleen Novoaann passive cigarette sm karthik exposure no Coleen Levin smoking status Never smoker Coleen Novoanavneet bhardwaj social history reviewed E&M revi ewed - no changes required Pastora Flores MD physical exercise, f requency, days per week no Coleen Poonam alcohol use, average drinks per day none Coleen Novoaann alcohol use no Coleen Levin caffeine use, averag e drinks per day yes Coleen Poonam drug use no Coleen Novoaann passive cigarette sm karthik exposure no Coleen Novoaann smoking status Never smoker Coleen Novoanavneet bhardwaj social history reviewed E&M revi ewed - no changes required Pastora Flores MD physical exercise, f requency, days per week no Maddie Grande alcohol use, average drinks per day none Maddie Grande alcohol use no Maddie russellon caffeine use, averag e drinks per day yes Maddie Grande drug use no Maddie James nson passive cigarette sm karthik exposure no Maddie Grande smoking status Never smoker Maddie Ferreira social history reviewed E&M revi ewed - no changes required Pastora Flores MD physical exercise, f requency, days per week no Maddie Grande alcohol use, average drinks per day none Maddie Grande alcohol use no Maddie bennett caffeine use, averag e drinks per day yes Maddie Grande drug use no Maddie bennett passive cigarette sm karthik exposure no Maddie Grande smoking status Never smoker Maddie Ferreira social history reviewed E&M revi ewed - no changes required [place] smoking status Never smoker [place] social history reviewed E&M revi ewed - no changes required Pastora Flores MD social history reviewed E&M reviewed Pastora Flores MD social history reviewed E&M reviewed Jimenez Wiggins RN social history reviewed E&M reviewed Pastora Flores MD social history reviewed E&M reviewed Pastora Flores MD social history reviewed E&M reviewed Jimenez Wiggins RN drug use no Marisela hu passive cigarette sm karthik exposure no Marisela Thomason smoking status never smoker Marisela cuevas social history E&M Marital Statu s: L patrica with family/friends E thnicity: Pastora Flores MD drug use none Pastora Flores MD social history reviewed E&M reviewed Pastora Flores MD social history reviewed E&M reviewed Jimenez Wiggins RN physical exercise, f requency, days per week no [employer] caffeine use, averag e drinks per day yes [employer] alcohol use, average drinks per day none LinkLog smoking status Non-smoker [facility] MENTAL STATUS Date Observation Value Provider assessment of judgme nt and insight E&M Alert and oriented to time, place and person. Mood and affect are normal. Pastora Flores MD assessment of judgme nt and insight E&M Alert and oriented to time, place and person. Mood and affect are normal. Jimenez Wiggins RN assessment of judgme nt and insight E&M Alert and oriented to time, place and person. Mood and affect are normal. Jimenez Wiggins RN assessment of judgme nt and insight E&M Alert and oriented to time, place and person. Mood and affect are normal. Pastora Flores MD assessment of judgme nt and insight E&M Alert and oriented to time, place and person. Mood and affect are normal. Pastora Flores MD assessment of judgme nt and insight E&M Alert and oriented to time, place and person. Mood and affect are normal. Pastora Flores MD assessment of judgme nt and insight E&M Alert and oriented to time, place and person. Mood and affect are normal. Jimenez Wiggins RN FAMILY HISTORY Family Member Condition Mother Family History of Ot her Cancer Mother Family History of Hy pertension: Mother Family History of Di abetes: Mother Family History of CV A or Stroke: Father Family History of Hy pertension: Father Family History of Di abetes: INSURANCE PROVIDERS Payer name Policy type / Coverage type [facility] party ID [employer] (2) Medicare [id number] 1 [employer] (2) Medicaid [id number] ADVANCE DIRECTIVES Name Date DISCUSSED - NO DECISION MADE TREATMENT PLAN Date Name Performer [id number],SEliud i [id number],S, Eliud Ahmedza i [id number],S, Eliud Ahmedza i [id number],S, Eliud Ahmedza i [id number],S, Eliud Ahmedza i [id number],S, Eliud Ahmedza i [id number],S, Eliud Ahmedza i [id number],S, Eliud Ahmedza i [id number],S, Eliud Ahmedza i [id number],S, Eliud Ahmedza i [id number],S, Eliud Ahmedza i [id number],S, Eliud Ahmedza i [id number],S, Eliud Ahmedza i [id number],S, Eliud Ahmedza i [id number],S, Eliud Ahmedza i [id number],S, Eliud Ahmedza i [id number],S, Eliud Ahmedza i [id number],S, Eliud Ahmedza i [id number],S, Eliud Ahmedza i [id number],S, Eliud Ahmedza i [id number],W, Eliud Ahmedza i [id number],B, Eliud Ahmedza i [id number],S, Eliud Ahmedza i [id number],S, Eliud Ahmedza i [id number],S, Eliud Ahmedza i [id number],S, Eliud Ahmedza i [id number],B, Eliud Ahmedza i [id number],S, Eliud Ahmedza i [id number],S, Eliud Ahmedza i [id number],S, Eliud Ahmedza i [id number],S, Eliud Ahmedza i [id number],S, Eliud Ahmedza i [id number],S, Eliud Ahmedza i [id number],S, Eliud Ahmedza i [id number],S, Eliud Ahmedza i [id number],S, Eliud Ahmedza i [id number],S, Eliud Ahmedza i [id number],S, Eliud Ahmedza i [id number],S, Eliud Ahmedza i Electrophysiology: h as had multiple hospital admissions UTI, VT , Syncope , MSSA TV Endocarditis, recurrent, secondary to infected ICD lead, Reviewed records from [facility]. She was admit 05/2024 for MSSA bacteremia. Per outside hospital, TTE and CHANCE at the time without vegetations on valves/ICD. S/p ICD explant on 07/13/24 with path confirming MSSA on ICD lead. Also found to have TV endocarditis with vegetation visualized on CHANCE 07/2024. 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 She was not considered a candidate for angiovac/TV surgery given clearing cultures and patient family preference. Also not a candidate for retained wire removal given elevated risk per vascular surgery. Will need lifetime abx suppression due to retained wire. from EP standpoint with have to hold off on implantation of Subcutaneously ICD until TV vegetation has cleared. will await results of bld cx from ID on Monday 09/17 Ynes Allen NP Electrophysiology:nabila jose with ID. planned to see again 09/17 with planned bld cx. CHANCE: that contineus to hsow TV vegetation 1.2x 0.7cm in one plane and 1.6x1.04cm in different plan. this had a narrow stalk and was hypermobile, essentially unchanged from CHANCE in hospital 4 weeks prior. from EP standpoint with have to hold off on implantation of Subcutaneously ICD until TV vegetation has cleared. will await results of bld cx from ID on Monday 09/17 Ynes Allen NP Cardiology Eliud Ahmedzacourtney Cardiology Eliud Ozunamedzai Cardiology: T calista following medications were removed from the medication list: Carvedilol 25 Mg Tablet (Carvedilol) ..... Take 1 tablet by mouth twice daily Orders: T EE (87024) Eliud Ahmedzai Cardiology: Her updated medication list for this problem includes: Diltiazem Hcl 30 Mg Tablet (Diltiazem hcl) ..... Take 1 tablet by mouth three times daily Prior BP: 98/72 (01/02/2024) Labs Reviewed: C reat: 0.81 (11/26/2017) C hol: 153.0 (10/19/2016) HDL: 48.0 (10/19/2016) LDL: 78.0 (?) (10/19/2016) T.0 (10/19/2016) Eliud Ahmedzai Cardiology: O rders: T EE ([id number]) Eliud Ahmedzai Cardiology: Her updated medication list for this problem includes: Diltiazem Hcl 30 Mg Tablet (Diltiazem hcl) ..... Take 1 tablet by mouth three times daily Orders: T EE ([id number]) Eliud Ahmedzai Cardiology Eliud Ahmedzai Cardiology: H er updated medication list for this problem includes: Diltiazem Hcl 30 Mg Tablet (Diltiazem hcl) ..... Take 1 tablet by mouth twice daily Carvedilol 25 Mg Tablet (Carvedilol) ..... Take 1 tablet by mouth twice daily [facility] Cardiology: H er updated medication list for this problem includes: Diltiazem Hcl 30 Mg Tablet (Diltiazem hcl) ..... Take 1 tablet by mouth twice daily Carvedilol 25 Mg Tablet (Carvedilol) ..... Take 1 tablet by mouth twice daily [facility] Cardiology: H er updated medication list for this problem includes: Farxiga 10 Mg Tablet (Dapagliflozin propanediol) ..... Take 1 tablet by mouth every day Tresiba Flextouch U-100 100 Unit/ml (3 Ml) Insulin Pen (Insulin degludec) Lantus U-100 Insulin 100 Unit/ml Solution (Insulin glargine) ..... 12 unit subcutaneously every morning Humalog U-100 Insulin 100 Unit/ml Solution (Insulin lispro) ..... Subcutaneously [facility] Cardiology [facility] Cardiology: H er updated medication list for this problem includes: Carvedilol 25 Mg Tablet (Carvedilol) ..... Take 1 tablet by mouth twice daily [facility] Cardiology: H er updated medication list for this problem includes: Diltiazem Hcl 30 Mg Tablet (Diltiazem hcl) ..... Take 1 tablet by mouth twice daily Carvedilol 25 Mg Tablet (Carvedilol) ..... Take 1 tablet by mouth twice daily [facility] Cardiology [facility] Cardiology:The patie nt is using CPAP on a regular basis. The patient has been benefiting from therapy and should continue use. [facility] Cardiology [facility] Cardiology Eliud Ahmedzai Cardiology Eliud Ahmedzai Cardiology Eliud Ahmedzai Cardiology Eliud Ahmedzai Cardiology Eliud Ahmedzai Cardiology Eliud Ahmedzai Cardiology Eliud Ahmedzai Cardiology Eliud Ahmedzai Cardiology Eliud Ahmedzai Cardiology Eliud Ahmedzai Cardiology Eliud Ahmedzai Cardiology Eliud Ahmedzai Cardiology Eliud Ahmedzai Cardiology Eliud Ahmedzai Cardiology Eliud Ahmedzai Cardiology Eliud Ahmedzai Cardiology Eliud Ahmedzai Cardiology Eliud Ahmedzai Cardiology Eliud Ahmedzai Cardiology Eliud Ahmedzai Cardiology Eliud Ahmedzai Cardiology Eliud Ahmedzai Cardiology Eliud Ahmedzai Cardiology Eliud Ahmedzai Cardiology Eliud Ahmedzai Cardiology Eliud Ahmedzai Cardiology Eliud Ahmedzai Cardiology Eliud Ahmedzai Cardiology Eliud Ahmedzai Cardiology Eliud Ahmedzai Cardiology Eliud Ahmedzai Cardiology Eliud Ahmedzai Cardiology Eliud Ahmedzai Cardiology Eliud Ahmedzai Cardiology Eliud Ahmedzai Cardiology Eliud Ahmedzai Cardiology Eliud Ahmedzai Cardiology Eliud Ahmedzai Cardiology Eliud Ahmedzai Cardiology Eliud Ahmedzai Cardiology Eliud Ahmedzai Cardiology Eliud Ahmedzai Cardiology Eliud Ahmedzai Cardiology Eliud Ahmedzai Cardiology Eliud Ahmedzai Cardiology Eliud Ahmedzai Cardiology Eliud Ahmedzai Cardiology Eliud Ahmedzai Cardiology Eliud Ahmedzai Cardiology Follow up Pastora krishnan MD Cardiology Follow up Pastora krishnan MD Cardiology Follow up Pastora krishnan MD Cardiology Follow up Pastora krishnan MD Cardiology Follow up Pastora krishnan MD Cardiology - cpoe Pastora Flores M Moiz Cardiology - cpoe Tonjessica Flores M Moiz Cardiology - cpoe Tonjessica Flores M D Cardiology - cpoe Tonjessica Flores M D Cardiology - cpoe Tonjessica Flores M Moiz Cardiology Pastora Flores MD Cardiology Pastora Flores MD Cardiology Pastora Flores MD Cardiology Pastora Flores MD Cardiology Pastora Flores MD Cardiology Pastora Flores MD Cardiology Pastora Flores MD Cardiology Tonjessica Flores MD Cardiology Pastora Flores MD Cardiology Tonjessica Flores MD Cardiology Pastora Flores MD Cardiology Pastora Flores MD Cardiology hospital follow up To colby Flores MD Cardiology hospital follow up To colby Flores MD Cardiology hospital follow up To colby Flores MD Cardiology hospital follow up To colby Flores MD Cardiology hospital follow up To colby Flores MD Cardiology Follow up Pastora krishnan MD Cardiology Follow up Pastora krishnan MD Cardiology Follow up Pastora krishnan MD Cardiology Follow up Pastora krishnan MD Cardiology Follow up Past[facility]ishnan [facility] Follow up:Co mpensated. Jory Marvin [facility] Follow up:On oral agents. Jory [facility] Follow up:St able. Jory [facility] Follow up:Atrial burden is 100%. Interrogation of the AICD was satisfactory. She is on Diltiazem 30mg TID and Coreg 25mg BID and on Xarelto for anticoagulation. Jory Marvin MD Electrophysiology Jasper ruelas MD Electrophysiology Jasper ruelas MD Electrophysiology: B P today: 120/80 P rior BP: 125/82 (08/16/2017) Labs Reviewed: C reat: 0.8 (05/14/2017) C hol: 153.0 (10/19/2016) HDL: 48.0 (10/19/2016) T.0 (10/19/2016) Jasper Mcfarland MD Electrophysiology:EK G shos afib with rate of 72 bpm. Her updated medication list for this problem includes: Carvedilol 25 Mg Oral Tablet (Carvedilol) ..... One tab twice daily Jasper Mcfarland MD Cardiology Follow up Pastora krishnan MD Cardiology Follow up Pastora krishnan MD Cardiology Follow up Pastora krishnan MD Cardiology Follow up Pastora krishnan MD Cardiology Follow up Pastora krishnan MD Cardiology Daniel Harris MD Cardiology Daniel Harris MD Cardiology Daniel Harris MD Cardiology Daniel Harris MD Cardiology:Decrease lasix to alejandra ly from bid. Daniel Harris MD Cardiology:Warfarin isn't working with her. Change to Xarelto, stop amiodarone. Daniel Harris MD Cardiology:Blood pressure contro l is satisfactory. Jory Marvin MD Cardiology Jory Rockwell Cardiology:On insulin. Jory Marvin MD Cardiology:Clinicall y compensated. Continues on maximally tolerated medical therapy with Coreg, lisinopril, and Lasix. Jory Marvin MD Pre-op H& P_ Biotron ik dual chamber ICD implantation-Dr. Marvin: B P today: 130/70 P rior BP: 104/68 (04/01/2017) Labs Reviewed: C reat: 0.9 (04/16/2017) C hol: 153.0 (10/19/2016) HDL: 48.0 (10/19/2016) T.0 (10/19/2016) Julia Mccann Pre-op H& P_ Biotron ik dual chamber ICD implantation-Dr. Marvin:Plan for Biotronik dual chamber ICD implantation. I discussed in detail about the risks and benefits of this procedure. Patient is agreeable with this plan. Julia Mccann EP:Encouraged to los e weight to help with symptoms as well as to make future cardiac treatment more effective. Da Artis EP:Echo 03/01/2017 sh ows EF 10% to 20% H er updated medication list for this problem includes: Amiodarone Hcl 200 Mg Tabs (Amiodarone hcl) ..... One tab daily Coreg 25 Mg Oral Tabs (Carvedilol) ..... Take one pill twice a day Lasix 40 Mg Tabs (Furosemide) ..... Po daily Lisinopril 10 Mg Tabs (Lisinopril) ..... One tab. daily Da Artis EP:Patient strongly encouraged to exercise to lose and weight adopt a sodium free diet. Da Artis EP:Currently in afib . Will do CHANCE to rule out clot before cardioversion is considered. H er updated medication list for this problem includes: Amiodarone Hcl 200 Mg Tabs (Amiodarone hcl) ..... One tab daily Coreg 25 Mg Oral Tabs (Carvedilol) ..... Take one pill twice a day [facility] Follow [facility] Carlos Eduardo Flores MD [facility] Follow [facility] Carlso Eduardo Flores MD [facility] Follow up Carlos Eduardo Flores MD [facility] Follow [facility] Carlos Eduardo Flores MD [facility] Follow up Carlos Eduardo Flores [facility] Carlos Eduardo Flores MD Cardiology Follow up Pastora krishnan MD Cardiology Follow up Pastora krishnan MD Cardiology Follow up Pastora krishnan MD Cardiology Follow up Pastora krishnan MD Cardiology Follow up Pastora krishnan MD [facility] Follow up To colby Flores [facility] Follow up To colby Flores MD [facility] Follow up To colby Flores [facility] Follow up To colby Flores MD [facility] Follow up To colby Flores MD EP Initial Consult f axed 11/24/16:On Eliquis 5mg BID for Afib. Jasper Mcfarland MD EP Initial Consult f axed 11/24/16:Her updated medication list for this problem includes: Coreg 12.5 Mg Tabs (Carvedilol) ..... One tab. twice daily Lisinopril 10 Mg Tabs (Lisinopril) ..... One tab. daily Jasper Mcfarland MD EP Initial Consult f axed 11/24/16:CHADS2 score > 2 - needs life long anticoagulation. Her updated medication list for this problem includes: Coreg 12.5 Mg Tabs (Carvedilol) ..... One tab. twice daily Orders: S NOMED-CT: [id number] Current Medications Documented ([facility]-[id number]) E KG (CPT-37876) C ardioversion - GC (CPT-91914) T EE - GC (*) Jasper Mcfarland MD EP Initial Consult f axed 11/24/16:Labs Reviewed: H gBA1c: 8.8 (10/19/2016) Creat: 0.7 (10/19/2016) Her updated medication list for this problem includes: Lisinopril 10 Mg Tabs (Lisinopril) ..... One tab. daily Metformin Hcl 1000 Mg Tabs (Metformin hcl) ..... One tab twice daily Humalog Mix 50/50 (50-50) 100 Unit/ml Sc Susp (Insulin lispro prot & lispro) ..... 18 units in am, 10 units in pm Jasper Mcfarland MD EP Initial Consult f axed 11/24/16:Orders: F VC - 28040 ([id number]) F RC - 48177 ([id number]) D LCO - 79558 ([id number]) Jasper Mcfarland MD EP Initial Consult faxed 11/24/16 Jasper Mcfarland MD Cardiology Pastora Flores MD Cardiology Pastora Flores MD Cardiology Pastora Flores MD Cardiology Pastora Flores MD Cardiology Pastora Flores MD Cardiology Pastora Flores MD Cardiology Pastora Flores MD Cardiology Pastora Flores MD Cardiology Pastora Flores MD Cardiology Pastora Flores MD Cardiology Pastora Flores MD Cardiology Pastora Flores MD Cardiology:needs a new mask Jordy Flores MD Cardiology Pastora Flores MD Cardiology Pastora Flores MD Cardiology Pastora Flores MD Cardiology Pastora Flores MD Cardiology Pastora Flores MD Cardiology Pastora Flores MD Cardiology Pastora Flores MD Cardiology Pastora Flores MD Cardiology Pastora Flores MD follow up: H er updated medication list for this problem includes: Lisinopril 10 Mg Tabs (Lisinopril) ..... One tab. daily Coreg 12.5 Mg Tabs (Carvedilol) ..... One tab. twice daily & #13;BP today: 119/71 P rior BP: 130/77 (08/27/2014) Labs Reviewed: C reat: 0.6 (02/26/2014) C hol: 112 (02/26/2014) HDL: 50 (02/26/2014) LDL: 44 (02/26/2014) T (02/26/2014) Pastora Flores MD follow up: H er updated medication list for this problem includes: Metformin Hcl 1000 Mg Tabs (Metformin hcl) ..... One tab twice daily Lantus 100 Unit/ml Soln (Insulin glargine) Lisinopril 10 Mg Tabs (Lisinopril) ..... One tab. daily Pastora Flores MD follow up: H er updated medication list for this problem includes: Lisinopril 10 Mg Tabs (Lisinopril) ..... One tab. daily Coreg 12.5 Mg Tabs (Carvedilol) ..... One tab. twice daily Pastora Flores MD follow up: H er updated medication list for this problem includes: Lisinopril 10 Mg Tabs (Lisinopril) ..... One tab. daily Coreg 12.5 Mg Tabs (Carvedilol) ..... One tab. twice daily Pastora Flores MD Follow Up: H er updated medication list for this problem includes: Simvastatin 20 Mg Tabs (Simvastatin) ..... One tab. daily BP today: 132/80 Prior BP: 109/68 (08/28/2013) Pastora Flores MD Follow Up Pastora Flores MD Follow Up: H er updated medication list for this problem includes: Lisinopril 10 Mg Tabs (Lisinopril) ..... One tab. daily Coreg 12.5 Mg Tabs (Carvedilol) ..... One tab. twice daily & #13;BP today: 132/80 Prior BP: 109/68 (08/28/2013) H CT: 36.9 (04/13/2013) Creat: 0.70 (04/13/2013) Na+: 141 (04/13/2013) K+: 4.2 (04/13/2013) Nuclear Stress Findings: 1. Abnormal myocardial perfusion imaging after vasodilator stress with Regadenoson. 2 . Dilated left ventricle with severely reduced left ventricular systolic function with a calculated ejection fraction of 36%. 3 . There is a moderately large fixed defect involving the inferior wall consistent with scar tissue. - (02/21/2013) C ardiac Cath: Cardiomyopathy, probably related to hypertension. EF 40%. Essential Hypertension with normal renal arteries bilaterally. Normal coronary arteries.- [facility] (04/17/2013) Pastora Flores MD Follow Up: H er updated medication list for this problem includes: Simvastatin 40 Mg Tabs (Simvastatin) ..... One tab. daily BP today: 132/80 Prior BP: 109/68 (08/28/2013) Pastora Flores MD Follow Up: H er updated medication list for this problem includes: Lisinopril 10 Mg Tabs (Lisinopril) ..... One tab. daily Coreg 12.5 Mg Tabs (Carvedilol) ..... One tab. twice daily & #13;BP today: 132/80 Prior BP: 109/68 (08/28/2013) N uclear Stress Findings: 1. Abnormal myocardial perfusion imaging after vasodilator stress with Regadenoson. 2 . Dilated left ventricle with severely reduced left ventricular systolic function with a calculated ejection fraction of 36%. 3 . There is a moderately large fixed defect involving the inferior wall consistent with scar tissue. - (02/21/2013) C ardiac Cath: Cardiomyopathy, probably related to hypertension. EF 40%. Essential Hypertension with normal renal arteries bilaterally. Normal coronary arteries.- [facility] (04/17/2013) H CT: 36.9 (04/13/2013) Creat: 0.70 (04/13/2013) Na+: 141 (04/13/2013) K+: 4.2 (04/13/2013) INR: 0.9 (04/13/2013) Pastora Flores MD follow up: B P today: 109/68 Prior BP: 128/55 (05/28/2013) Pastora Flores MD follow up: H er updated medication list for this problem includes: Metformin Hcl 1000 Mg Tabs (Metformin hcl) ..... One tab twice daily Lantus 100 Unit/ml Soln (Insulin glargine) Lisinopril 10 Mg Tabs (Lisinopril) ..... One tab. daily BP today: 109/68 Prior BP: 128/55 (05/28/2013) Labs Reviewed: C reat: 0.70 (04/13/2013) Pastora Flores MD follow up: H er updated medication list for this problem includes: Lisinopril 10 Mg Tabs (Lisinopril) ..... One tab. daily Coreg 12.5 Mg Tabs (Carvedilol) ..... One tab. twice daily & #13;BP today: 109/68 Prior BP: 128/55 (05/28/2013) H CT: 36.9 (04/13/2013) Creat: 0.70 (04/13/2013) Na+: 141 (04/13/2013) K+: 4.2 (04/13/2013) Nuclear Stress Findings: 1. Abnormal myocardial perfusion imaging after vasodilator stress with Regadenoson. 2 . Dilated left ventricle with severely reduced left ventricular systolic function with a calculated ejection fraction of 36%. 3 . There is a moderately large fixed defect involving the inferior wall consistent with scar tissue. - (02/21/2013) C ardiac Cath: Cardiomyopathy, probably related to hypertension. EF 40%. Essential Hypertension with normal renal arteries bilaterally. Normal coronary arteries.- [facility] (04/17/2013) Pastora Flores MD follow up: H er updated medication list for this problem includes: Lisinopril 10 Mg Tabs (Lisinopril) ..... One tab. daily Coreg 12.5 Mg Tabs (Carvedilol) ..... One tab. twice daily & #13;Orders: E KG (CPT-40047) BP today: 109/68 Prior BP: 128/55 (05/28/2013) H CT: 36.9 (04/13/2013) Creat: 0.70 (04/13/2013) Na+: 141 (04/13/2013) K+: 4.2 (04/13/2013) Nuclear Stress Findings: 1. Abnormal myocardial perfusion imaging after vasodilator stress with Regadenoson. 2 . Dilated left ventricle with severely reduced left ventricular systolic function with a calculated ejection fraction of 36%. 3 . There is a moderately large fixed defect involving the inferior wall consistent with scar tissue. - (02/21/2013) C ardiac Cath: Cardiomyopathy, probably related to hypertension. EF 40%. Essential Hypertension with normal renal arteries bilaterally. Normal coronary arteries.- [facility] (04/17/2013) Pastora Flores MD follow up: H er updated medication list for this problem includes: Lisinopril 10 Mg Tabs (Lisinopril) ..... One tab. daily Coreg 12.5 Mg Tabs (Carvedilol) ..... One tab. twice daily & #13;BP today: 109/68 Prior BP: 128/55 (05/28/2013) N uclear Stress Findings: 1. Abnormal myocardial perfusion imaging after vasodilator stress with Regadenoson. 2 . Dilated left ventricle with severely reduced left ventricular systolic function with a calculated ejection fraction of 36%. 3 . There is a moderately large fixed defect involving the inferior wall consistent with scar tissue. - (02/21/2013) C ardiac Cath: Cardiomyopathy, probably related to hypertension. EF 40%. Essential Hypertension with normal renal arteries bilaterally. Normal coronary arteries.- [facility] (04/17/2013) H CT: 36.9 (04/13/2013) Creat: 0.70 (04/13/2013) Na+: 141 (04/13/2013) K+: 4.2 (04/13/2013) INR: 0.9 (04/13/2013) Pastora Flores MD routine : H er updated medication list for this problem includes: Metformin Hcl 1000 Mg Tabs (Metformin hcl) ..... One tab twice daily Lantus 100 Unit/ml Soln (Insulin glargine) Lisinopril 20 Mg Tabs (Lisinopril) ..... One tab. daily Pastora Flores MD routine : H er updated medication list for this problem includes: Lisinopril 20 Mg Tabs (Lisinopril) ..... One tab. daily Coreg 12.5 Mg Tabs (Carvedilol) ..... One tab. twice daily & #13;BP today: / Prior BP: 120/66 (04/03/2013) H CT: 36.9 (04/13/2013) Creat: 0.70 (04/13/2013) Na+: 141 (04/13/2013) K+: 4.2 (04/13/2013) Nuclear Stress Findings: 1. Abnormal myocardial perfusion imaging after vasodilator stress with Regadenoson. 2 . Dilated left ventricle with severely reduced left ventricular systolic function with a calculated ejection fraction of 36%. 3 . There is a moderately large fixed defect involving the inferior wall consistent with scar tissue. - (02/21/2013) C ardiac Cath: Cardiomyopathy, probably related to hypertension. EF 40%. Essential Hypertension with normal renal arteries bilaterally. Normal coronary arteries.- [facility] (04/17/2013) Pastora Flores MD routine : H er updated medication list for this problem includes: Lisinopril 20 Mg Tabs (Lisinopril) ..... One tab. daily Coreg 12.5 Mg Tabs (Carvedilol) ..... One tab. twice daily & #13;BP today: / Prior BP: 120/66 (04/03/2013) N uclear Stress Findings: 1. Abnormal myocardial perfusion imaging after vasodilator stress with Regadenoson. 2 . Dilated left ventricle with severely reduced left ventricular systolic function with a calculated ejection fraction of 36%. 3 . There is a moderately large fixed defect involving the inferior wall consistent with scar tissue. - (02/21/2013) C ardiac Cath: Cardiomyopathy, probably related to hypertension. EF 40%. Essential Hypertension with normal renal arteries bilaterally. Normal coronary arteries.- [facility] (04/17/2013) H CT: 36.9 (04/13/2013) Creat: 0.70 (04/13/2013) Na+: 141 (04/13/2013) K+: 4.2 (04/13/2013) INR: 0.9 (04/13/2013) Pastora Flores MD routine : H er updated medication list for this problem includes: Lisinopril 20 Mg Tabs (Lisinopril) ..... One tab. daily Coreg 12.5 Mg Tabs (Carvedilol) ..... One tab. twice daily & #13;BP today: / Prior BP: 120/66 (04/03/2013) H CT: 36.9 (04/13/2013) Creat: 0.70 (04/13/2013) Na+: 141 (04/13/2013) K+: 4.2 (04/13/2013) Nuclear Stress Findings: 1. Abnormal myocardial perfusion imaging after vasodilator stress with Regadenoson. 2 . Dilated left ventricle with severely reduced left ventricular systolic function with a calculated ejection fraction of 36%. 3 . There is a moderately large fixed defect involving the inferior wall consistent with scar tissue. - (02/21/2013) C ardiac Cath: Cardiomyopathy, probably related to hypertension. EF 40%. Essential Hypertension with normal renal arteries bilaterally. Normal coronary arteries.- [facility] (04/17/2013) Pastora Flores MD follow up : H er updated medication list for this problem includes: Simvastatin 40 Mg Tabs (Simvastatin) ..... One tab daily BP today: 120/66 Prior BP: 154/91 (01/23/2013) Pastora Flores MD follow up : H er updated medication list for this problem includes: Lisinopril 20 Mg Tabs (Lisinopril) ..... One tab. daily Coreg 12.5 Mg Tabs (Carvedilol) ..... One tab. twice daily BP today: 120/66 Prior BP: 154/91 (01/23/2013) N uclear Stress Findings: 1. Abnormal myocardial perfusion imaging after vasodilator stress with Regadenoson. 2 . Dilated left ventricle with severely reduced left ventricular systolic function with a calculated ejection fraction of 36%. 3 . There is a moderately large fixed defect involving the inferior wall consistent with scar tissue. - (02/21/2013) Pastora Flores MD follow up : H er updated medication list for this problem includes: Metformin Hcl 1000 Mg Tabs (Metformin hcl) ..... One tab twice daily Lantus 100 Unit/ml Soln (Insulin glargine) Lisinopril 20 Mg Tabs (Lisinopril) ..... One tab. daily BP today: 120/66 Prior BP: 154/91 (01/23/2013) Pastora Flores MD follow up : H er updated medication list for this problem includes: Lisinopril 20 Mg Tabs (Lisinopril) ..... One tab. daily Coreg 12.5 Mg Tabs (Carvedilol) ..... One tab. twice daily Pastora Flores MD follow up : H er updated medication list for this problem includes: Lisinopril 20 Mg Tabs (Lisinopril) ..... One tab. daily Coreg 12.5 Mg Tabs (Carvedilol) ..... One tab. twice daily Orders: E KG (CPT-[id number]) BP today: 120/66 Prior BP: 154/91 (01/23/2013) N uclear Stress Findings: 1. Abnormal myocardial perfusion imaging after vasodilator stress with Regadenoson. 2 . Dilated left ventricle with severely reduced left ventricular systolic function with a calculated ejection fraction of 36%. 3 . There is a moderately large fixed defect involving the inferior wall consistent with scar tissue. - GC (02/21/2013) Pastora Flores MD follow up: H er updated medication list for this problem includes: Simvastatin 40 Mg Tabs (Simvastatin) ..... One tab daily BP today: 154/91 Prior BP: 154/80 (09/13/2011) Pastora Flores MD follow up Pastora Flores MD follow up: T he following medications were removed from the medication list: Actos 15 Mg Tabs (Pioglitazone hcl) ..... One tab daily Her updated medication list for this problem includes: Metformin Hcl 1000 Mg Tabs (Metformin hcl) ..... One tab twice daily Lantus 100 Unit/ml Soln (Insulin glargine) Lisinopril 20 Mg Tabs (Lisinopril) ..... One tab. daily BP today: 154/91 Prior BP: 154/80 (09/13/2011) Pastora Flores MD follow up: H er updated medication list for this problem includes: Lisinopril 20 Mg Tabs (Lisinopril) ..... One tab. daily Coreg 12.5 Mg Tabs (Carvedilol) ..... One tab. twice daily & #13;BP today: 154/91 Prior BP: 154/80 (09/13/2011) N uclear Stress Findings: 1. Normal myocardial perfusion imaging after vasodilator stress with Regadenoson. 2 . Normal left ventricular size and reduced systolic function with a calculated ejection fraction of 31%. 3 . No obvious significant scintigraphic evidence of myocardial ischemia or scar.Please correlate EF with echocardiogram. (08/18/2011) Pastora Flores MD follow up: H er updated medication list for this problem includes: Lisinopril 20 Mg Tabs (Lisinopril) ..... One tab. daily Coreg 12.5 Mg Tabs (Carvedilol) ..... One tab. twice daily & #13;Orders: E KG ([id number]) BP today: 154/91 Prior BP: 154/80 (09/13/2011) N uclear Stress Findings: 1. Normal myocardial perfusion imaging after vasodilator stress with Regadenoson. 2. Normal left ventricular size and reduced systolic function with a calculated ejection fraction of 31%. 3 . No obvious significant scintigraphic evidence of myocardial ischemia or scar.Please correlate EF with echocardiogram. (08/18/2011) Pastora Flores MD follow up: H er updated medication list for this problem includes: Lisinopril 20 Mg Tabs (Lisinopril) ..... One tab. daily Coreg 3.125 Mg Tabs (Carvedilol) ..... One tab. twice daily BP today: 154/80 P rior BP: 128/85 (08/16/2011) Pastora Flores MD follow up: H er updated medication list for this problem includes: Simvastatin 40 Mg Tabs (Simvastatin) ..... One tab daily BP today: 154/80 Prior BP: 128/85 (08/16/2011) Pastora Flores MD follow up: H er updated medication list for this problem includes: Actos 15 Mg Tabs (Pioglitazone hcl) ..... One tab daily Metformin Hcl 1000 Mg Tabs (Metformin hcl) ..... One tab twice daily Lantus 100 Unit/ml Soln (Insulin glargine) Lisinopril 20 Mg Tabs (Lisinopril) ..... One tab. daily BP today: 154/80 Prior BP: 128/85 (08/16/2011) Pastora Flores MD follow up: H er updated medication list for this problem includes: Lisinopril 20 Mg Tabs (Lisinopril) ..... One tab. daily Coreg 3.125 Mg Tabs (Carvedilol) ..... One tab. twice daily Pastora Flores MD follow up: B P today: 154/80 Prior BP: 128/85 (08/16/2011) N uclear Stress Findings: 1. Normal myocardial perfusion imaging after vasodilator stress with Regadenoson. 2 . Normal left ventricular size and reduced systolic function with a calculated ejection fraction of 31%. 3 . No obvious significant scintigraphic evidence of myocardial ischemia or scar.Please correlate EF with echocardiogram. (08/18/2011) E chocardiogram: Moderate diffuse left ventricular systolic hypokinesis . Normal left ventricular size. There is borderline left ventricular hypertrophy. Left ventricular ejection fraction is estimated at 40%. Normal right ventricular size. Normal right ventricular systolic function. There is moderate enlargement of the left atrium. Normal appearing mitral valve leaflets.There is trace physiologic mitral valve regurgitation. The tricuspid valve is normal in appearance and function. No evidence of tricuspid regurgitation. - (08/27/2011) Her updated medication list for this problem includes: Lisinopril 20 Mg Tabs (Lisinopril) ..... One tab. daily Coreg 3.125 Mg Tabs (Carvedilol) ..... One tab. twice daily Pastora Flores MD abn ekg: B P today: 128/85 Pastora Flores MD abn ekg: H er updated medication list for this problem includes: Simvastatin 40 Mg Tabs (Simvastatin) ..... One tab daily BP today: 128/85 Prior BP: / () Pastora Flores MD abn ekg: H er updated medication list for this problem includes: Actos 15 Mg Tabs (Pioglitazone hcl) ..... One tab daily Metformin Hcl 1000 Mg Tabs (Metformin hcl) ..... One tab twice daily Lantus 100 Unit/ml Soln (Insulin glargine) BP today: 128/85 Prior BP: / () Pastora Flores MD abn ekg: B P today: 128/85 Prior BP: / () Pastora Flores MD Date Name Blood Culture, Routi ne Blood Culture, Routi ne X-Ray, Chest 2 View Complete Echo Sleep Study Titratio n Sleep Study Home COMPREHENSIVE METABO LIC PANEL, W/EGFR CBC (INCLUDES DIFF/P LT) PROBNP, N TERMINAL Carotid Duplex Bilat eral Complete Echo Complete Echo PROTHROMBIN TIME WIT H INR CBC (INCLUDES DIFF/P LT) BASIC METABOLIC PANE L W/EGFR URINALYSIS, COMPLETE Other Test PARTIAL THROMBOPLAST IN TIME, ACTIVATED URINALYSIS, COMPLETE W/REFLEX TO CULTURE COMPREHENSIVE METABO LIC PANEL W/EGFR PROTHROMBIN TIME WIT H INR CBC (INCLUDES DIFF/P LT) Bi-V AICD Implant - GC MAGNESIUM BASIC METABOLIC PANE L W/EGFR PROTHROMBIN TIME WIT H INR CHANCE - GC HEMOGLOBIN A1c B TYPE NATRIURETIC P EPTIDE (BNP) COMPREHENSIVE METABO LIC PANEL, W/EGFR CBC (INCLUDES DIFF/P LT) MAGNESIUM BASIC METABOLIC PANE L W/EGFR PROTHROMBIN TIME WIT H INR CHANCE - GC Cardioversion - GC DLCO - 38899 FRC - 39579 FVC - 60328 URINALYSIS, COMPLETE W/REFLEX TO CULTURE PROBNP, N TERMINAL TSH, 3RD GENERATION W/REFLEX TO FT4 HEMOGLOBIN A1c LIPID PANEL CBC (INCLUDES DIFF/P LT) COMPREHENSIVE METABO LIC PANEL W/EGFR DLCO - 86454 FRC - 37915 FVC - [id number] HISTORY OF PROCEDURES Procedure Date Procedure Name Provider Procedure Notes S tatus EKG Pastora Flores MD completed EKG Pastora Flores MD completed EKG Pastora Flores MD completed ICM Interrogation, Remote (Prof) Pastora Flores MD INTERROGATION EVAL REMOTE </30 D CV MNTR SYS completed ICM Interrogation, Remote (Tech) Pastora Flores MD INTERROGATION EVAL REMOTE </30 D TECH REVIEW completed ICM Interrogation, Remote (Prof) Pastora Flores MD INTERROGATION EVAL REMOTE </30 D CV MNTR SYS completed AICD Interrogation, Remote (Tech) Pastora Flores MD INTERROGATION REMOTE </90 D COMMUNICATIONS PROJECT LEAD REVIEW completed AICD Interrogation, Remote (Prof) Pastora Flores MD INTERROGATION EVAL REMOTE </90 D 1/2/> LD CVDFB completed ICM Interrogation, Remote (Prof) Pastora Flores MD INTERROGATION EVAL REMOTE </30 D CV MNTR SYS completed ICM Interrogation, Remote (Tech) Pastora Flores MD INTERROGATION EVAL REMOTE </30 D TECH REVIEW completed ZELALEMG Pastora Flores MD completed ICM Interrogation, Remote (Prof) Pastora Flores MD INTERROGATION EVAL REMOTE </30 D CV MNTR SYS completed ICM Interrogation, Remote (Tech) Pastora Flores MD INTERROGATION EVAL REMOTE </30 D TECH REVIEW completed ICM Interrogation, Remote (Prof) Pastora Flores MD INTERROGATION EVAL REMOTE </30 D CV MNTR SYS completed AICD Interrogation, Remote (Tech) Pastora Flores MD INTERROGATION REMOTE </90 D COMMUNICATIONS PROJECT LEAD REVIEW completed AICD Interrogation, Remote (Prof) Pastora Flores MD INTERROGATION EVAL REMOTE </90 D 1/2/> LD CVDFB completed ICM Interrogation, Remote (Prof) Pastora Flores MD INTERROGATION EVAL REMOTE </30 D CV MNTR SYS completed ICM Interrogation, Remote (Tech) Pastora Flores MD INTERROGATION EVAL REMOTE </30 D TECH REVIEW completed ICM Interrogation, Remote (Prof) Pastora Flores MD INTERROGATION EVAL REMOTE </30 D CV MNTR SYS completed ICM Interrogation, Remote (Tech) Pastora Flores MD INTERROGATION EVAL REMOTE </30 D TECH REVIEW completed ICM Interrogation, Remote (Prof) Pastora Flores MD INTERROGATION EVAL REMOTE </30 D CV MNTR SYS completed AICD Interrogation, Remote (Tech) Pastora Flores MD INTERROGATION REMOTE </90 D COMMUNICATIONS PROJECT LEAD REVIEW completed AICD Interrogation, Remote (Prof) Pastora Flores MD INTERROGATION EVAL REMOTE </90 D 1/2/> LD CVDFB completed ICM Interrogation, Remote (Prof) Pastora Flores MD INTERROGATION EVAL REMOTE </30 D CV MNTR SYS completed ICM Interrogation, Remote (Tech) Pastora Flores MD INTERROGATION EVAL REMOTE </30 D TECH REVIEW completed ICM Interrogation, Remote (Prof) Pastora Flores MD INTERROGATION EVAL REMOTE </30 D CV MNTR SYS completed ICM Interrogation, Remote (Tech) Pastora Flores MD INTERROGATION EVAL REMOTE </30 D TECH REVIEW completed ICM Interrogation, Remote (Prof) Pastora Flores MD INTERROGATION EVAL REMOTE </30 D CV MNTR SYS completed AICD Interrogation, Remote (Tech) Pastora Flores MD INTERROGATION REMOTE </90 D COMMUNICATIONS PROJECT LEAD REVIEW completed AICD Interrogation, Remote (Prof) Pastora Flores MD INTERROGATION EVAL REMOTE </90 D 1/2/> LD CVDFB completed ICM Interrogation, Remote (Prof) Pastora Flores MD INTERROGATION EVAL REMOTE </30 D CV MNTR SYS completed ICM Interrogation, Remote (Tech) Pastora Flores MD INTERROGATION EVAL REMOTE </30 D TECH REVIEW completed ICM Interrogation, Remote (Prof) Pastora Flores MD INTERROGATION EVAL REMOTE </30 D CV MNTR SYS completed ICM Interrogation, Remote (Tech) Pastora Flores MD INTERROGATION EVAL REMOTE </30 D TECH REVIEW completed EKG Jory Marvin MD complet ed EKG Jasper martinez MD completed SNOMED-CT: 226993291501659 Current Medications Documented Jasper Mcfarland MD completed ICM Interrogation, Remote (Prof) Pastora Flores MD INTERROGATION EVAL REMOTE </30 D CV MNTR SYS completed AICD Interrogation, Remote (Tech) Pastora Flores MD INTERROGATION REMOTE </90 D COMMUNICATIONS PROJECT LEAD REVIEW completed AICD Interrogation, Remote (Prof) Pastora Flores MD INTERROGATION EVAL REMOTE </90 D 1/2/> LD CVDFB completed ICM Interrogation, Remote (Prof) Pastora Flores MD INTERROGATION EVAL REMOTE </30 D CV MNTR SYS completed ICM Interrogation, Remote (Tech) Pastora Flores MD INTERROGATION EVAL REMOTE </30 D TECH REVIEW completed SNOMED-CT: 50965397 Physical Exam, Performed: Pulse Exam of Foot Pastora Flores MD completed SNOMED-CT: 933174478936295 Current Medications Documented Pastora Flores MD completed Protime Jory Marvin MD complet ed ICM Interrogation, Remote (Prof) Pastora Flores MD INTERROGATION EVAL REMOTE </30 D CV MNTR SYS completed ICM Interrogation, Remote (Tech) Pastora Flores MD INTERROGATION EVAL REMOTE </30 D TECH REVIEW completed EKG Daniel Harris MD complete d SNOMED-CT: 023426814443305 Current Medications Documented Daniel Harris MD completed Pippa Marvin MD complet ed Pippa Marvin MD complet ed Pippa Marvin MD complet ed Pippa Marvin MD complet ed EKG Jory Marvin MD complet ed SNOMED-CT: 520107332075771 Current Medications Documented Jory Marvin MD completed ICM Interrogation, Remote (Prof) Pastora Flores MD INTERROGATION EVAL REMOTE </30 D CV MNTR SYS completed ICM Interrogation, Remote (Tech) Pastora Flores MD INTERROGATION EVAL REMOTE </30 D TECH REVIEW completed EKG Jasper martinez MD completed SNOMED-CT: 670172650563455 Current Medications Documented Jasper Mcfarland MD completed EKG Jasper martinez MD completed SNOMED-CT: 103681398221766 Current Medications Documented Jasper Mcfarland MD completed SNOMED-CT: 76841101 Physical Exam, Performed: Pulse Exam of Foot Pastora Flores MD completed EKG Pastora Flores MD completed SNOMED-CT: 191224584134458 Current Medications Documented Pastora Flores MD completed SNOMED-CT: 61266238 Physical Exam, Performed: Pulse Exam of Foot Pastora Flores MD completed EKG Pastora Flores MD completed SNOMED-CT: 138358245963188 Current Medications Documented Pastora Flores MD completed SNOMED-CT: 11615649 Physical Exam, Performed: Pulse Exam of Foot Pastora Flores MD completed SNOMED-CT: 479645877256499 Current Medications Documented Pastora Flores MD completed FVC - 50096 Pastora Flores MD complete d FRC - 32290 Pastora Flores MD complete d EKG Jasper martinez MD completed SNOMED-CT: 556314206986638 Current Medications Documented Jasper Mcfarland MD completed SNOMED-CT: 29702362 Physical Exam, Performed: Pulse Exam of Foot Pastora Flores MD completed AMARILYS Flores MD co mpleted EKG Pastora Flores MD completed SNOMED-CT: 659115250491925 Current Medications Documented Pastora Flores MD completed Event Monitor Pastora Flores MD comple dharmesh SNOMED-CT: 27771915 Physical Exam, Performed: Pulse Exam of Foot Pastora Flores MD completed EKG Pastora Flores MD completed SNOMED-CT: 437352774083837 Current Medications Documented Pastora Flores MD completed SNOMED-CT: 30949263 Physical Exam, Performed: Pulse Exam of Foot Pastora Flores MD completed SNOMED-CT: 198386627104273 Current Medications Documented Pastora Flores MD completed SNOMED-CT: 23945705 Physical Exam, Performed: Pulse Exam of Foot Pastora Flores MD completed SNOMED-CT: 166816845562021 Current Medications Documented Pastora Flores MD completed SNOMED-CT: 33582107 Physical Exam, Performed: Pulse Exam of Foot Pastora Flores MD completed SNOMED-CT: 287064205654551 Current Medications Documented Pastora Flores MD completed EKG Pastora Flores MD completed EKG Pastora Flores MD completed EKG Pastora Flores MD completed EKG Pastora Flores MD completed EKG Pastora Flores MD completed
--- OUTSIDE RECORDS SUMMARY | 2024-10-07 00:18 | XMS_ITS | Patient Health Summary ---
Author Organization [facility] Address [address] [place] [address] Care Team Providers Care Smash Hand Name Role Phone Fredis Klein Irina JONESN-BLENDING KETTLE TENDER Primary Care Provider Note from [facility],non-owned Affiliates and Associated Physician Practices is amultiple site organization consisting of ambulatory clinics and hospital sitesin [place], [place], [place] and [place]. This disclosure is being madepursuant to the Care Everywhere program and may not contain all information available regarding this patient. Last updated 18.[facility] Allergies * Sulfa Drugs Medications * Be aware that medications may not be up to date on this document. Alwaysverify current medications with the patient. * Insulin NPH Isophane & Regular (HUMULIN 70/30 SC) * METFORMIN & DIET MANAGE PROD PO * RANITIDINE & DIET MANAGE PROD PO * LISINOPRIL & DIET MANAGE PROD PO * TRAMADOL & DIETARY MANAGE PROD PO * Citalopram Hydrobromide (CELEXA PO) * Carvedilol (COREG PO) * OXYBUTYNIN CHLORIDE PO * NORTRIPTYLINE HCL PO * nitrofurantoin monohyd macro crystals (MACROBID) 100 MG capsule(Started 07/15/2016) Take 1 Cap by mouth 2 times daily with morning and evening meal Active Problems No known active problems Social [...] Mass Index 32.28 07/15/2016 4:59 PM CDT Procedures * URINALYSIS AUTO - POINT OF CARE (AMB) STL(Performed 07/15/2016) Performed for Acute cystitis without hematuria Results * URINALYSIS AUTO - POINT OF CARE (AMB) STL (07/15/2016) Clarity UA POCT clear Color UA POCT yellow Leukocyte UA moderate Negative Nitrite UA POCT neg Negative Urobilinogen UA 0.2 0.1 - 1.0 Protein UA POCT 300+ Negative pH UA 5.0 5.0 - 8.0 pH units Blood UA neg Negative Specific [place] UA POCT 1.030 1.002 - 1.030 Ketone UA neg Negative Bilirubin UA POCT neg Negative Glucose UA neg Negative Expiration Date 07/15/2016 Lot # [id number] QC Verified Yes Yes URINE / Unknown 07/15/2016 Reema Banks APRN-BLENDING KETTLE TENDER LAB - POINT OF C ARE ORDERABLES Care Teams Smash Hand Relationship Specialty Start Date End Date Fredis Klein APRN-CNP [address] [place] [address] PCP - General 08/08/18
--- OUTSIDE RECORDS SUMMARY | 2024-10-07 00:18 | XMS_ITS | Patient Health Record ---
Author Organization [facility] Address [address] [place], [place] [id number] Care Team Providers Care Caster Operator Name Role Phone DAISHAJEREMÍAS Primary Care Provider [phone] Allergies Allergen (clinical drug ingredient) Drug/Non Drug Allergy documented on EMR Reaction Allergy Type Onset Date Status Substance with sulfonamide structure and antibacterial mechanism of action (substance) Sulfa Antibiotics Unknown Drug Allergy Active Results Component Value Reference Range Notes C-REACTIVE PROTEIN (4420) Reviewed date:08/10/2024 09:35:16 AM Interpretation: Performing Lab:[facility]-[id number] [id number] Krista Montiel MD Notes/Report: FASTING:NO FASTING: NO C-REACTIVE PROTEIN <3.0 <8.0 mg/L SED RATE BY MODIFIED WESTLETTY YURI (809) Reviewed date:08/10/2024 09:35:21 AM Interpretation: Performing Lab:[facility] [id number] Krista Montiel MD Notes/Report: FASTING:NO FASTING: NO SED RATE BY MODIFIED BAILEY 53 < OR = 30 mm/h CBC (INCLUDES DIFF/PLT) (639 9) Reviewed date:08/10/2024 07:29:02 AM Interpretation: Performing Lab:[facility] BELALMYa[address]ya[place] Krista Montiel MD Notes/Report: FASTING:NO FASTING: NO WHITE BLOOD CELL COUNT 7.0 3.8-10.8 Thousand/ uL RED BLOOD CELL COUNT 3.84 3.80-5.10 Million/uL HEMOGLOBIN 12.7 11.7-15.5 g/dL HEMATOCRIT 39.3 35.0-45.0 % MCV 102.3 80.0-100.0 fL MCH 33.1 27.0-33.0 pg MCHC 32.3 32.0-36.0 g/dL For adults, a slight decrease in the calculated MCHC value (in the range of 30 to 32 g/dL) is most likely not clinically significant; however, it should be interpreted with caution in correlation with other red cell parameters and the patient's clinical condition. RDW 13.0 11.0-15.0 % PLATELET COUNT 270 140-400 Thousand/uL MPV 10.3 7.5-12.5 fL ABSOLUTE NEUTROPHILS 4795 3817-8626 cells/uL ABSOLUTE LYMPHOCYTES 2190 541-6682 cells/uL ABSOLUTE MONOCYTES 637 200-950 cells/uL ABSOLUTE EOSINOPHILS 322 15-500 cells/uL ABSOLUTE BASOPHILS 98 0-200 cells/uL NEUTROPHILS 68.5 LYMPHOCYTES 16.4 MONOCYTES 9.1 EOSINOPHILS 4.6 BASOPHILS 1.4 COMPREHENSIVE METABOLIC PANE (05801) Reviewed date:08/10/2024 03:56:35 PM Interpretation: Performing Lab:[facility], [facility]-[id number] Niyah Sheets, [id number] Krista Montiel MD Notes/Report: FASTING:NO FASTING: NO GLUCOSE 192 65-139 mg/dL Non-fasting reference interval UREA NITROGEN (BUN) 26 7-25 mg/dL CREATININE 0.99 0.50-1.05 mg/dL EGFR 64 > OR = 60 mL/min/1.73m2 BUN/CREATININE RATIO 26 6-22 (calc) SODIUM 137 135-146 mmol/L POTASSIUM 4.1 3.5-5.3 mmol/L CHLORIDE 99 98-110 mmol/L CARBON DIOXIDE 29 20-32 mmol/L CALCIUM 9.3 8.6-10.4 mg/dL PROTEIN, TOTAL 7.1 6.1-8.1 g/dL ALBUMIN 3.8 3.6-5.1 g/dL GLOBULIN 3.3 1.9-3.7 g/dL (calc) ALBUMIN/GLOBULIN RATIO 1.2 1.0-2.5 (calc) BILIRUBIN, TOTAL 0.5 0.2-1.2 mg/dL ALKALINE PHOSPHATASE 121 37-153 U/L AST 15 10-35 U/L ALT 10 6-29 U/L Reason For Referral No Information Medications Medication SIG (Take, Route, Frequency, Duration) Notes Start Date End Date Status Metoprolol Succinate ER 100 MG 1 tablet Orally Once a day Active Escitalopram Oxalate 10 MG 1 tablet Oral ly Once a day Active NovoLOG FlexPen 100 UNIT/ML 10 units plus sliding scale Subcutaneous three times a day 08/09/2024 Active Entresto 24-26 MG 1 tablet Orally Twic e a day Active Magnesium Oxide 400 MG 2 tablets Orally Once a day 08/09/2024 Active Albuterol Sulfate HFA 108 (90 Base) MCG/ACT 2 puffs as needed Inhalation every 4 hrs Active Vitamin D 125 MCG (5000 UT) 1 capsule Orally Once a day 08/09/2024 Active Omeprazole 20 MG 1 capsule 1/2 to 1 h our before morning meal Orally Once a day Active Basaglar KwikPen 100 UNIT/ML 18 units Subcutaneous daily 08/09/2024 Active Ferrous Sulfate 325 (65 Fe) MG 1 tablet Orally Three times a Week Active Furosemide 40 MG 1 tablet Orally Once a day Active Docusate Sodium 100 MG 1 capsule as need ed Orally twice a day 08/09/2024 Active Xarelto 20 MG 1 tablet with food Orally Once a day Active Cefadroxil 500 MG 2 capsules Orally ev jolene 12 hrs for 30 days 08/09/2024 02/05/2025 Active Gemtesa 75 MG 1 tablet Orally Once a day 08/09/2024 Active Levothyroxine Sodium 75 MCG 1 tablet in the morning on an empty stomach Orally Once a day Active Vital Signs Heart Rate 91 /min 08/09/2024 Temperature 97.4 degrees Fahrenheit 08/09/2024 Respiratory Rate 20 /min 08/09/2024 Height-cm 165.1 cm 09/17/2024 The patient ref used vitals Oximetry 95 % 08/09/2024 Blood pressure diastolic 57 mm Hg 08/09/2024 Weight-kg 114.94 kg 08/09/2024 Height 65 in 09/17/2024 The patient ref used vitals Blood pressure systolic 104 mm Hg 08/09/2024 Weight 253.4 lbs 08/09/2024 BMI 42.16 kg/m2 08/09/2024 Encounters Encounter Location Date Provider Diagnosis [facility] [address] [place], [place] [id number] 08/09/2024 JEREMÍAS ASHTON Acute bacterial endocarditis I33.0 ; Bacteremia R78.81 ; Methicillin susceptible Staphylococcus aureus infection as the cause of diseases classified elsewhere B95.61 and 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, initial encounter T82.7XXA [place] [address] [facility] [address] [place], [place] [id number] 09/17/2024 JEREMÍAS ASHTON Acute bacterial endocarditis I33.0 and 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, initial encounter T82.7XXA [facility] [address] [place], [place] [id number] 09/18/2024 JEREMÍAS ASHTON Assessments Encounter Date Diagnosis (ICD Code) Assessment Notes Treatment Notes Treatment Clinical Notes Section Notes 08/09/2024 Bacteremia (ICD-10 - R78.81) As above. 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 She has completed weeks of IV ancef with sterilzation of the blood cultures and Dalbavancin treatment x 2. She is now committed to lifelong cefadroxil 500 mg 2 capsules bid. She is doing well and tolerating the antibiotics. The current plan is to repeat her CHANCE and blood cultures in 3-4 weeks and replace the AICD if possible. In ther interim, she will need to wear the life vest. Will check CBC, CMP, ESR, and CRP. She is given close follow up and knows to go back to the ER with fever, chest pains, SOB, back pain, or if the life vest goes off. She will follow up with cardiology soon. 09/17/2024 Acute bacterial endocarditis (ICD-10 - I33.0) [...] suppressive antibiotic therapy. 09/17/2024 Infection of implantable cardioverter-defib rillator (ICD) generator, initial encounter (ICD-10 - T82.7XXA) As above. She will follow up with the container packer operator. 08/09/2024 Methicillin susceptible Staphylococcus aureus infection as the cause of diseases classified elsewhere (ICD-10 - B95.61) As above. 08/09/2024 Infection of implantable cardioverter-defib rillator (ICD) generator, initial encounter (ICD-10 - T82.7XXA) As above. Plan Of Treatment Next Appt Details Provider Name:JEREMÍAS Mills, 12/17/2024 02:30:00 PM, [address], [facility] , [place], [place], [id number], Insurance Providers Payer Name Payer Address Payer Phone Subscriber Number Group Number Insured Name Patient Relationship to Insured Coverage Start Date Coverage End Date [employer] [address] [place] [address] [id number] Loretta Moses am Self - patient is the insured 4 Medical (General) History Medical History History ICD Code GERD Obesity Diabetes Mellitus Type 2 Hypertension CHF Atrial fibrillation Ventricular tachycardia/fibrillation Intellectual disability Chronic constipation Hypothyroidism JOSE poorly compliant with CPAP OAB with frequent UTIs Depression TV/AICD vegetation from MSSA Surgical History Surgery Date(Month/Year) Cholecystectomy AICD placement then removal
--- OUTSIDE RECORDS SUMMARY | 2024-10-07 00:18 | XMS_ITS | Data Portability ---
Author Organization TARA [address] Address [address] [place] [address] Assessment No assessment recorded. Plan of Treatment Reminders Order Date Submit Date Provider Last Modified By Organization Details Last Modified Time Details Appointments None recorded. Lab culture, urine 2015 016 [id number] [facility], [address] [place] [address], [address], [place], [address], 6 04:33:21 culture, urine 2016 017 [place]ON[place]AN [facility], [address] [facility], [address], [place], [address], 7 06:40:25 urinalysis , dipstick 2016 017 [email or web address] In-Office Order, Internal Use Only DO Not Attach Compendium DO Not Attach Compendium, Do Not Delete/merge, [id number] 7 21:11:40 urinalysis , dipstick 2016 017 [email or web address] 6 In-Office Order, Internal Use Only DO Not Attach Compendium DO Not Attach Compendium, Do Not Delete/merge, [id number] 7 09:29:34 culture, urine 2016 017 YONATAN [facility], [address] [facility], [address], [place], [address], 7 11:15:05 urinalysis , dipstick 2016 017 [place] In-Office Order, Internal Use Only DO Not Attach Compendium DO Not Attach Compendium, Do Not Delete/merge, [id number] 7 14:42:16 culture, urine 2016 017 YON[place]AN [facility], [address] [facility] [address], [address], [place], [address], 7 07:14:00 hepatitis C genotype, serum or plasma 2016 017 [place] [facility], [address] [facility] [address], [address], [place], [address], 7 14:35:36 Referral endocrinol ogy referral - Please eval and treat ...... 2016 017 [email or web address] Not available 7 12:53:[address] referral - Please eval and treat . thank you 2016 017 [email or web address] Not available 7 17:42:07 Procedures None recorded. Surgeries None recorded. Imaging None recorded. Medication Orders miconazole nitrate 2 % topical cream 2015 016 [email or web address] Not available 6 16:56:52 griseofulv in ultramicro size 250 mg tablet 2015 016 [email or web address] Not available 6 16:56:52 ciprofloxa mimi 500 mg tablet 2015 016 [email or web address] 6 Not available 6 16:56:52 fluconazol e 150 mg tablet 2015 016 [email or web address] Not available 6 16:56:52 phenazopyr idine 200 mg tablet 2015 016 INTERFACE Not available 6 16:56:55 tramadol 50 mg tablet 2015 016 [email or web address] Not available 6 16:56:52 sertraline 100 mg tablet 2015 016 [email or web address] Not available 6 16:56:52 ciprofloxa mimi 500 mg tablet 2015 016 DBA_PATCH_ [id number] Not available 6 04:33:19 phenazopyr idine 200 mg tablet 2015 016 DBA_PATCH_ [id number] Not available 6 04:33:19 baclofen 10 mg tablet 2015 016 DBA_PATCH_ [id number] Not available 6 04:33:35 Dulera 200 mcg-5 mcg/actuat ion HFA aerosol inhaler [address] [facility], [address], [place], [place], [id number], 7 16:46:56 nitrofuran toin monohydrat e/macrocry stals 100 mg capsule 2016 017 [email or web address] 6 [id number], [address], [id number], 7 16:46:03 baclofen 10 mg tablet 2016 017 [email or web address] 6 [facility] #29031, [address], [place], [place], [id number], 7 16:46:03 ciprofloxa mimi 500 mg tablet [address] [facility], [address], [place], [place], [id number], 7 14:43:40 lisinopril 10 mg tablet [address] [facility], [address], [place], [place], [id number], 7 14:46:07 Humulin 70/30 U-100 Insulin 100 unit/mL subcutaneo us suspension [address] [facility], [address], [place], [place], [id number], 7 14:44:54 ranitidine 150 mg tablet [address] [facility], [address], [place], [place], [id number], 7 14:43:00 Januvia 100 mg tablet [address] [facility] [facility], [address], [place], [place], [id number], 7 14:39:09 Humulin 70/30 U-100 Insulin 100 unit/mL subcutaneo us suspension [address] [facility]31296, [address], [place], [place], [id number], 7 14:42:06 citalopram 40 mg tablet 2016 017 [facility], [address], [place], [place], [id number], 7 14:45:14 Patient TargetsNo targets recorded. Patient Instructions Encounter Date Encounter Id Patient Instructions Last Modified By Organization Details Last Modified Time 02/01/2017 [id number] ff, wipe front t o back with toilet tissue , no bubble baths [email or web address] Not available 02/01/2017 16:32:41 Reason for Referral [employer] Referral for Vi ral hepatitis C hepatitis c Please eval and treat . thank you Referring Physician: Jey Klein, [facility], Encounter Date: 04/04/2017 Endocrinology Referral for D iabetes mellitus uncontrolled diabetes Please eval and treat ...... Referring Physician: Jey Klein, Family Medicine, Encounter Date: 04/04/2017 Results Created Date Observation Date Name Description Value Unit Range Abnormal Flag Note LastModifiedBy Organization Detail LastModifiedTime 04/04/2017 urina lysis , dipst ick Leukocytes Negati ve Not Available In-Office Order Internal Use Only DO Not Attach Compendium DO Not Attach Compendium, Do Not Delete/merge, 04/04/2017 14:32:33 04/04/2017 urina lysis , dipst ick Nitrite negati ve Not Available In-Office Order Internal Use Only DO Not Attach Compendium DO Not Attach Compendium, Do Not Delete/merge, 04/04/2017 14:32:33 04/04/2017 urina lysis , dipst ick Urobilinogen 1 Not Available In-Of fice Order Internal Use Only DO Not Attach Compendium DO Not Attach Compendium, Do Not Delete/merge, 04/04/2017 14:32:33 04/04/2017 urina lysis , dipst ick Protein Negati ve Not Available In-Office Order Internal Use Only DO Not Attach Compendium DO Not Attach Compendium, Do Not Delete/merge, 04/04/2017 14:32:33 04/04/2017 urina lysis , dipst ick pH 6.0 Not Available In-Office Order Internal Use Only DO Not Attach Compendium DO Not Attach Compendium, Do Not Delete/merge, 04/04/2017 14:32:33 04/04/2017 urina lysis , dipst ick Blood Non-He molyze d: Trace Not Available In-Office Order Internal Use Only DO Not Attach Compendium DO Not Attach Compendium, Do Not Delete/merge, 04/04/2017 14:32:33 04/04/2017 urina lysis , dipst ick Specific [place] 1.005 Not Available In-Off ice Order Internal Use Only DO Not Attach Compendium DO Not Attach Compendium, Do Not Delete/merge, 04/04/2017 14:32:33 04/04/2017 urina lysis , dipst ick Ketone Negati ve Not Available In-Office Order Internal Use Only DO Not Attach Compendium DO Not Attach Compendium, Do Not Delete/merge, 04/04/2017 14:32:33 04/04/2017 urina lysis , dipst ick Bilirubin Negati ve Not Available In-Office Order Internal Use Only DO Not Attach Compendium DO Not Attach Compendium, Do Not Delete/merge, 04/04/2017 14:32:33 04/04/2017 urina lysis , dipst ick Glucose 1000 Not Available In-Office Order Internal Use Only DO Not Attach Compendium DO Not Attach Compendium, Do Not Delete/merge, 04/04/2017 14:32:33 04/04/2017 urina lysis , dipst ick Appearance Clear Not Available In-Offi ce Order Internal Use Only DO Not Attach Compendium DO Not Attach Compendium, Do Not Delete/merge, 04/04/2017 14:32:33 04/04/2017 urina lysis , dipst ick Color Yellow Not Available In-Office Order Internal Use Only DO Not Attach Compendium DO Not Attach Compendium, Do Not Delete/merge, 04/04/2017 14:32:33 02/01/2017 urina lysis , dipst ick Leukocytes Negati ve Not Available In-Office Order Internal Use Only DO Not Attach Compendium DO Not Attach Compendium, Do Not Delete/merge, 02/01/2017 14:35:30 02/01/2017 urina lysis , dipst ick Nitrite positi ve Not Available In-Office Order Internal Use Only DO Not Attach Compendium DO Not Attach Compendium, Do Not Delete/merge, 02/01/2017 14:35:30 02/01/2017 urina lysis , dipst ick Urobilinogen 2 Not Available In-Of fice Order Internal Use Only DO Not Attach Compendium DO Not Attach Compendium, Do Not Delete/merge, 02/01/2017 14:35:30 02/01/2017 urina lysis , dipst ick Protein 100 Not Available In-Office Order Internal Use Only DO Not Attach Compendium DO Not Attach Compendium, Do Not Delete/merge, 02/01/2017 14:35:30 02/01/2017 urina lysis , dipst ick pH 5.0 Not Available In-Office Order Internal Use Only DO Not Attach Compendium DO Not Attach Compendium, Do Not Delete/merge, 02/01/2017 14:35:30 02/01/2017 urina lysis , dipst ick Blood Large Not Available In-Office Order Internal Use Only DO Not Attach Compendium DO Not Attach Compendium, Do Not Delete/merge, 02/01/2017 14:35:30 02/01/2017 urina lysis , dipst ick Specific [place] 1.030 Not Available In-Off ice Order Internal Use Only DO Not Attach Compendium DO Not Attach Compendium, Do Not Delete/merge, 02/01/2017 14:35:30 02/01/2017 urina lysis , dipst ick Ketone Negati ve Not Available In-Office Order Internal Use Only DO Not Attach Compendium DO Not Attach Compendium, Do Not Delete/merge, 02/01/2017 14:35:30 02/01/2017 urina lysis , dipst ick Bilirubin Small Not Available In-Offic e Order Internal Use Only DO Not Attach Compendium DO Not Attach Compendium, Do Not Delete/merge, 02/01/2017 14:35:30 02/01/2017 urina lysis , dipst ick Glucose 1000 Not Available In-Office Order Internal Use Only DO Not Attach Compendium DO Not Attach Compendium, Do Not Delete/merge, 02/01/2017 14:35:30 02/01/2017 urina lysis , dipst ick Appearance Cloudy Not Available In-Offi ce Order Internal Use Only DO Not Attach Compendium DO Not Attach Compendium, Do Not Delete/merge, 02/01/2017 14:35:30 02/01/2017 urina lysis , dipst ick Color Dark Yellow Not Available In-Office Order Internal Use Only DO Not Attach Compendium DO Not Attach Compendium, Do Not Delete/merge, 02/01/2017 14:35:30 11/25/2016 urina lysis , dipst ick Leukocytes Small Not Available In-Offi ce Order Internal Use Only DO Not Attach Compendium DO Not Attach Compendium, Do Not Delete/merge, 11/25/2016 16:31:59 11/25/2016 urina lysis , dipst ick Nitrite positi ve Not Available In-Office Order Internal Use Only DO Not Attach Compendium DO Not Attach Compendium, Do Not Delete/merge, 11/25/2016 16:31:59 11/25/2016 urina lysis , dipst ick Urobilinogen .2 Not Available In-Of fice Order Internal Use Only DO Not Attach Compendium DO Not Attach Compendium, Do Not Delete/merge, 11/25/2016 16:31:59 11/25/2016 urina lysis , dipst ick Protein 30 Not Available In-Office Order Internal Use Only DO Not Attach Compendium DO Not Attach Compendium, Do Not Delete/merge, 11/25/2016 16:31:59 11/25/2016 urina lysis , dipst ick pH 5.0 Not Available In-Office Order Internal Use Only DO Not Attach Compendium DO Not Attach Compendium, Do Not Delete/merge, 11/25/2016 16:31:59 11/25/2016 urina lysis , dipst ick Blood Small Not Available In-Office Order Internal Use Only DO Not Attach Compendium DO Not Attach Compendium, Do Not Delete/merge, 11/25/2016 16:31:59 11/25/2016 urina lysis , dipst ick Specific [place] 1.030 Not Available In-Off ice Order Internal Use Only DO Not Attach Compendium DO Not Attach Compendium, Do Not Delete/merge, 11/25/2016 16:31:59 11/25/2016 urina lysis , dipst ick Ketone Trace Not Available In-Office Order Internal Use Only DO Not Attach Compendium DO Not Attach Compendium, Do Not Delete/merge, 11/25/2016 16:31:59 11/25/2016 urina lysis , dipst ick Bilirubin Small Not Available In-Offic e Order Internal Use Only DO Not Attach Compendium DO Not Attach Compendium, Do Not Delete/merge, 11/25/2016 16:31:59 11/25/2016 urina lysis , dipst ick Glucose 500 Not Available In-Office Order Internal Use Only DO Not Attach Compendium DO Not Attach Compendium, Do Not Delete/merge, [id number] 11/25/2016 16:31:59 11/25/2016 urina lysis , dipst ick Appearance Slight ly Cloudy Not Available In-Office Order Internal Use Only DO Not Attach Compendium DO Not Attach Compendium, Do Not Delete/merge, [id number] 11/25/2016 16:31:59 11/25/2016 urina lysis , dipst ick Color Dark Yellow Not Available In-Office Order Internal Use Only DO Not Attach Compendium DO Not Attach Compendium, Do Not Delete/merge, [id number] 11/25/2016 16:31:59 09/21/20 16 09/23/2016 cultu re, urine urine culture,comp rehensive FINAL REPORT Not Available [facility] ([facility]) [address] [place], [address], 09/23/2016 07:13:56 09/21/20 16 09/23/2016 cultu re, urine result 1 COMMEN T MIXED UROGE NITAL JOSHUA 50,00 0-100 ,000 COLON Y FORMI NG UNITS PER ML Not Available [facility] ([facility]) [address] [place], [address], 09/23/2016 07:13:56 11/25/19 17 11/28/2016 cultu re, urine urine culture,comp rehensive FINAL REPORT abnormal Not Available [facility] ([facility]) [address] [place], [address], 11/28/2016 06:40:25 11/25/19 17 11/28/2016 cultu re, urine result 1 ESCHER ICHIA COLI abnormal GREAT ER THAN 100,0 00 COLON Y FORMI NG UNITS PER ML Not Available [facility] ([facility]) [address] [place], [address], 11/28/2016 06:40:25 11/25/19 17 11/28/2016 cultu re, urine antimicrobia l susceptibili ty COMMEN T S = SUSCE PTIBL E; I = INTER MEDIA TE; R = RESIS TANT P = POSIT SATNAM; N = NEGAT SATNAM MICS ARE EXPRE SSED IN MICRO GRAMS PER ML ANTIB IOTIC RSLT# 1 RSLT# 2 RSLT# 3 RSLT# 4 AMOXI CILLI N/CLA VULAN IC ACID S AMPIC ILLIN R CEFEP ABBY S CEFTR IAXON E S CEFUR OXIME S CEPHA LOTHI N S CIPRO FLOXA MIMI S ERTAP ENEM S GENTA MICIN S IMIPE NEM S LEVOF LOXAC IN S NITRO FURAN TOIN S PIPER ACILL IN R TETRA CYCLI NE S TOBRA MYCIN S TRIME THOPR IM/GALLEGOS LFA S Not Available [facility] ([facility]) [address] [place], [address], 11/28/2016 06:40:25 02/02/20 17 02/04/2017 cultu re, urine urine culture,comp rehensive FINAL REPORT abnormal Not Available [facility] ([facility]) [address] [place], [address], 02/04/2017 11:15:05 02/02/20 17 02/04/2017 cultu re, urine result 1 ESCHER ICHIA COLI abnormal GREAT ER THAN 100,0 00 COLON Y FORMI NG UNITS PER ML Not Available [facility] ([facility]) [address] [place], [address], 02/04/2017 11:15:05 02/02/20 17 02/04/2017 cultu re, urine antimicrobia l susceptibili ty COMMEN T S = SUSCE PTIBL E; I = INTER MEDIA TE; R = RESIS TANT P = POSIT SATNAM; N = NEGAT SATNAM MICS ARE EXPRE SSED IN MICRO GRAMS PER ML ANTIB IOTIC RSLT# 1 RSLT# 2 RSLT# 3 RSLT# 4 AMOXI CILLI N/CLA VULAN IC ACID S AMPIC ILLIN R CEFEP ABBY S CEFTR IAXON E S CEFUR OXIME S CEPHA LOTHI N S CIPRO FLOXA MIMI S ERTAP ENEM S GENTA MICIN S IMIPE NEM S LEVOF LOXAC IN S NITRO FURAN TOIN S PIPER ACILL IN R TETRA CYCLI NE S TOBRA MYCIN S TRIME THOPR IM/GALLEGOS LFA S Not Available [facility] ([facility]) [address] [facility], [place], [address], 02/04/2017 11:15:05 04/04/20 17 04/06/2017 cultu re, urine urine culture,comp rehensive FINAL REPORT Not Available [facility] ([facility]) [address] [facility], [place], [address], 04/06/2017 07:13:59 04/04/20 17 04/06/2017 cultu re, urine result 1 COMMEN T MIXED UROGE NITAL JOSHUA 10,00 0-25, 000 COLON Y FORMI NG UNITS PER ML Not Available [facility] ([facility]) [address] [facility], [place], [address], 04/06/2017 07:13:59 05/14/20 16 04/28/2016 imagi ng/di agnos tic resul t No observ ation record ed. [email or web address] [facility] [address] [place], [address], 05/24/2016 10:44:17 05/14/20 16 04/13/2016 sleep study , ASV titra tion* No observ ation record ed. [email or web address] [facility] [address] [place], [address], 06/03/2016 16:40:00 07/12/20 16 07/12/2016 US, doppl er echoc ardio gram No observ ation record ed. [facility] [address], [place], [address], 07/19/2016 11:26:25 07/15/20 16 05/19/2016 sleep study , polys omnog jacob with bren nuous posit satnam airwa y press ure* No observ ation record ed. [facility] [address] [place], [address], 07/19/2016 11:26:02 07/28/20 16 07/28/2016 US, duple x, carot id arter y No observ ation record ed. [email or web address] Not Available 08/20 09:44:06 10/28/19 17 10/18/2016 mike thao am No observ ation record ed. [facility] Not Available 2016 10:22:59 12/14/19 17 12/13/2016 XR, chest No observ ation record ed. [facility] ([facility]) [address] [place], [address], 12/14/2016 11:23:51 01/19/20 17 01/18/2017 XR, chest No observ ation record ed. [facility] ([facility] [address] [place], [address], 02/10/2017 10:11:06 01/19/20 17 01/18/2017 CT, chest , w/o contr ast No observ ation record ed. [facility] ([facility] [address] [place], [address], 02/10/2017 10:10:53 02/05/20 17 02/03/2017 XR, chest No observ ation record ed. [facility] ([facility] [address] [place], [address], 02/10/2017 10:10:13 02/05/20 17 02/03/2017 CT, chest , w/o contr ast No observ ation record ed. [facility] ([facility]) [address] [place], [address], 02/10/2017 10:08:49 02/11/20 17 02/06/2017 XR, chest , 2 view No observ ation record ed. [email or web address] Not Available 05/10 11:27:49 02/11/20 17 02/06/2017 XR, abdom en, 1 view No observ ation record ed. [email or web address] Not Available 05/10 11:27:50 03/21/20 17 03/16/2017 XR, chest No observ ation record ed. [email or web address] Not Available 05/10 11:27:50 03/21/20 17 03/16/2017 CT, abdom en + pelvi s, w/ contr ast No observ ation record ed. [email or web address] Not Available 05/10 11:27:50 Result Notes None recorded. Problems Name Problem SNOMED Code Status Onset Date Resolution Date Notes Provider Name and Address Organization Details Recorded Time Constipation 26425028 Active 2016 Jey Klein PA-C Attn: Accountin g,[address] [place], [address], [place] [facility] 7 00:09:16 Vitamin D deficiency 64191039 Active 2016 Jey Klein PA-C Attn: Accountin g,[address] [place], [address], [place] [facility] 7 10:06:40 Diabetes mellitus 05448071 Active Jey Klein PA-C Attn: Accountin g,[address] [place], [address] [facility] 6 14:46:47 Gastroesophage al reflux disease 032256740 Active Jey Klein PA-C Attn: Accountin g,[address] [place], [address] [facility] 6 14:46:47 Sinusitis 84227289 Active Jey Klein PA-C Attn: Accountin g,[address] [place], [address] [facility] 6 14:46:47 Bladder muscle dysfunction - overactive Active Jey Klein PA-C Attn: Accountin g,[address] [place], [address] [facility] 6 14:46:47 Cardiomyopathy 72261019 Active Jey Klein PA-C Attn: Accountin g,[address] [facility], [place], [address], [place] [facility] 6 14:46:47 Vaginitis and vulvovaginitis Active Jey Klein PA-C Attn: Accountin g,[address] [facility], [place], [address] [facility] 5 10:32:49 Dysuria 14387114 Active Jey Klein PA-C Attn: Accountin g,[address] [facility], [place], [address] [facility] 5 10:32:49 Depressive disorder 29828305 Active Jey Klein PA-C Attn: Accountin g,[address] [facility], [place], [address] [facility] 6 11:17:12 Insomnia 391926422 Active Jey Klein PA-C Attn: Accountin g,[address] [facility], [place], [address], [place] [facility] 6 14:28:00 Knee pain Active Jey Klein PA-C Attn: Accountin g,[address] [facility], [place], [address] [facility] 6 14:46:47 Dysphagia 59158586 Active Jey Klein PA-C Attn: Accountin g,[address] [facility], [place], [address], [place] [facility] 6 14:28:00 Acute urinary tract infection 963934399 Active Jey Klein PA-C Attn: Accountin g,[address] [facility], [place], [address] [facility] 6 16:56:51 Asthma 576823578 Active Jey Klein PA-C Attn: Accountin g,[address] [facility], [place], [address], [place] [facility] 6 14:46:47 Low back pain 369253987 Active Jey Klein PA-C Attn: Accountmary mata,[address] [facility], [place], [address], [place] [facility] 6 16:56:51 Osteoarthritis of knee 120507590 Active Jey Klein PA-C Attn: Accountin g,[address] [facility], [place], [address], [place] [facility] 6 14:28:00 Thumb joint painful on movement 607855593 Active Jey Klein PA-C Attn: Accountmary g,[address] [facility], [place], [address], [place] [facility] 6 14:28:00 Sleep apnea 66538812 Active Jey Klein PA-C Attn: Accountmary g,[address] [facility], [place], [address], [place] [facility] 6 19:05:51 Periodic limb movement disorder 559682098 Active Jey Klein PA-C Attn: Accountmary g,[address] [facility], [place], [address] [facility] 6 19:05:51 Tinea capitis 0320638 Active Jey Klein PA-C Attn: Accountmary g,[address] [facility], [place], [address] [facility] 6 16:56:51 Essential hypertension 57998964 Active 2016 Jey Klein PA-C Attn: Accountin g,[address] [facility], [place], [address] [facility] 7 14:45:32 Viral hepatitis C 33424653 Active 2016 Jey Klein PA-C Attn: Accountin g,[address] [facility], [place], [address], [place] [facility] 7 14:32:24 Urinary tract infectious disease 54983531 Active 2016 Jey Klein PA-C Attn: Marnie mata,[address], [place], [address], [facility] 7 14:35:04 Problem Notes None recorded. Procedures Surgical History Date Name Laterality Status Provider Name and Address Organization Details Recorded Time 07/12/20 13 Date of Last Pap Smear completed Veena Duran MA [facility] 06/30/2015 10:21:35 10/10/19 12 Cholecystectomy completed Veena Duran MA [facility] 06/30/2015 10:22:34 10/10/18 75 Appendectomy completed Veena Duran MA [facility] 06/30/2015 10:22:14 Arthroscopic Surgery completed Sendy Ge MA [facility] 01/15/2015 10:55:55 Imaging Results Imaging Date Name Status LastModified by Organization Details LastModified Time 04/28/2016 imaging/diagnostic result completed [address] [place], [address], 05/24/2016 10:44:17 04/13/2016 sleep study, ASV titration* completed [email or web address] [place], [address], 06/03/2016 16:40:00 07/12/2016 US, doppler echocardiogram completed [facility] [address] [facility] [address], [place], [address], 07/19/2016 11:26:25 05/19/2016 sleep study, polysomnogram with continuous positive airway pressure* completed [facility] [address] [place], [address], 07/19/2016 11:26:02 07/28/2016 US, duplex, carotid artery [email or web address] Information not available 08/20/2016 09:44:06 10/18/2016 electrocardiogram completed [facility] Informa tion not available 12/02/2016 10:22:59 12/13/2016 XR, chest completed [facility] [address] [place], [address], 12/14/2016 11:23:51 01/18/2017 XR, chest completed [facility] [address] [place], [address], 02/10/2017 10:11:06 01/18/2017 CT, chest, w/o contrast completed [facility] [address] [place], [address], 02/10/2017 10:10:53 02/03/2017 XR, chest completed [facility] [address] [place], [address], 02/10/2017 10:10:13 02/03/2017 CT, chest, w/o contrast completed [facility] [address] [place], [address], 02/10/2017 10:08:49 02/06/2017 XR, chest, 2 view completed [email or web address] Inform ation not available 05/22/2017 11:27:49 02/06/2017 XR, abdomen, 1 view completed [email or web address] Info rmation not available 05/22/2017 11:27:50 03/16/2017 XR, chest completed [email or web address] Information n ot available 05/22/2017 11:27:50 03/16/2017 CT, abdomen + pelvis, w/ contrast completed [email or web address] Information not available 05/22/2017 11:27:50 Procedure Notes None recorded. Medical Equipment None Reported. Allergies Allergen ID Allergen Name Allergen Category Reaction Reaction Severity Criticality Documentation Date Start Date Code Code System Note Provider Name and Address Organization Details Recorded Time 84660 Substance with sulfonami de structure and antibacte rial mechanism of action (substanc e) medicatio n hives Not available Not available 01/15/2015 [id number] SNOMED [place] - [place] 5 10:55:55 61205 sulfameth oxazole / trimethop rim medicatio n hives Not available Not available 01/15/2015 04478 RxNorm Sendy Ge [place], [place] - [place] 5 10:55:55 Medications Name Sig Start Date Stop Date Status Note LastModified by Organization Details LastModified Time Prescription - New active short n/s 30g 0.5ml uf Not Available Not Available Not Available multivitamin tablet active Not Available Not Available Not Available cyclobenzapr ine 10 mg tablet active Not Available Not Available Not Available amoxicillin 500 mg capsule active Not Available Not Available Not Available furosemide 40 mg tablet active Not Available Not Available Not Available carvedilol 25 mg tablet active Not Available Not Available Not Available paroxetine 10 mg tablet active Not Available Not Available Not Available carvedilol 12.5 mg tablet Take 1 tablet(s) twice a day by oral route for 30 days. active Not Available Not Available No t Available citalopram 40 mg tablet Take 1 tablet every day by oral route in the evening for 30 days. active Not Available Not Available No t Available fluconazole 150 mg tablet Take 1 tablet every day by oral route as directed for 1 day. active Not Available Not Available N ot Available amiodarone 200 mg tablet TAKE 1 TABLET BY MOUTH EVERY DAY active Not Available Not Available No t Available hydrocodone 5 mg-acetamino phen 325 mg tablet active Not Available Not Available Not Available phenazopyrid ine 200 mg tablet active Not Available Not Available Not Available sertraline 100 mg tablet Take 1 tablet every day by oral route in the morning for 30 days. active Not Available Not Available No t Available Lantus U-100 Insulin 100 unit/mL subcutaneous solution active Not Available Not Available Not Available potassium chloride ER 10 mEq tablet,exten ded release active Not Available Not Available Not Available Aspir-Low 81 mg tablet,delay ed release active Not Available Not Available N ot Available ciprofloxaci n 500 mg tablet Take 1 tablet every 12 hours by oral route for 10 days. active Not Available Not Available No t Available tramadol 50 mg tablet Take 1 tablet every day by oral route at bedtime for 30 days. active Not Available Not Available No t Available simvastatin 40 mg tablet active Not Available Not Available Not Available amoxicillin 875 mg tablet active Not Available Not Available Not Available citalopram 20 mg tablet Take 1 tablet every day by oral route in the evening for 30 days. active Not Available Not Available No t Available potassium chloride ER 20 mEq tablet,exten ded release(part /cryst) active Not Available Not Available Not Available Humalog U-100 Insulin 100 unit/mL subcutaneous solution active Not Available Not Available Not Available phenazopyrid ine 100 mg tablet active Not Available Not Available Not Available baclofen 10 mg tablet Take 1 tablet 3 times a day by oral route as needed for 30 days. active Not Available Not Available No t Available levothyroxin e 50 mcg tablet active Not Available Not Available Not Available cephalexin 500 mg capsule active Not Available Not Available Not Available paroxetine 20 mg tablet Take 1 tablet every day by oral route in the evening for 30 days. active Not Available Not Available No t Available simvastatin 20 mg tablet active Not Available Not Available Not Available nortriptylin e 10 mg capsule TAKE 1 CAPSULE DAILY active Not Available Not Available No t Available ferrous sulfate 325 mg (65 mg iron) tablet active Not Available Not Available Not Available metformin 1,000 mg tablet TAKE 1 TABLET BY MOUTH TWICE DAILY active Not Available Not Available No t Available nitrofuranto in macrocrystal 100 mg capsule active Not Available Not Available Not Available ranitidine 150 mg tablet TAKE ONE TABLET TWICE DAILY active Not Available Not Available No t Available lisinopril 10 mg tablet TAKE ONE TABLET DAILY active Not Available Not Available No t Available promethazine 25 mg tablet active Not Available Not Available Not Available warfarin 5 mg tablet active Not Available Not Available No t Available Humulin 70/30 U-100 Insulin 100 unit/mL subcutaneous suspension INJECT 18 UNITS UNDER THE SKIN EVERY MORNING AND 10 USE EVERY EVENING. active Not Available Not Available No t Available docusate sodium 100 mg capsule TAKE ONE CAPSULE TWICE DAILY 2016 active Not Available Not Available Not Avai lable gabapentin 300 mg capsule active Not Available Not Available Not Available insulin syringe U-100 with needle 0.5 mL 30 gauge x 1/2 use as directed 2015 active Not Available Not Available Not Avai lable mupirocin 2 % topical ointment active Not Available Not Available Not Available levofloxacin 500 mg tablet active Not Available Not Available Not Available paroxetine 40 mg tablet Take 1 tablet every day by oral route in the evening for 30 days. active Not Available Not Available No t Available diltiazem 30 mg tablet active Not Available Not Available No t Available Vitamin D2 1,250 mcg (50,000 unit) capsule Take 1 capsule every week by oral route with meals for 30 days. active Not Available Not Available No t Available oxybutynin chloride 5 mg tablet TAKE 1 TABLET BY MOUTH THREE TIMES DAILY. active Not Available Not Available No t Available ondansetron 4 mg disintegrati ng tablet active Not Available Not Available No t Available fluticasone propionate 50 mcg/actuatio n nasal spray,suspen juan daniel active Not Available Not Available Not Available glipizide 5 mg tablet active Not Available Not Available No t Available griseofulvin ultramicrosi ze 250 mg tablet 1BID active Not Available Not Available Not Available amoxicillin 875 mg-potassium clavulanate 125 mg tablet Take 1 tablet every 12 hours by oral route for 10 days. active Not Available Not Available No t Available Ventolin HFA 90 mcg/actuatio n aerosol inhaler Inhale 2 puffs every 4 hours by inhalation route. active Not Available Not Available No t Available Antifungal (miconazole) 2 % topical cream Apply 1 applicatio n twice a day by topical route for 30 days. active Not Available Not Available No t Available insulin syringe U-100 with needle 1/2 mL 30 gauge active Not Available Not Available Not Available nitrofuranto in monohydrate/ macrocrystal s 100 mg capsule Take 1 capsule every 12 hours by oral route for 10 days. active Not Available Not Available No t Available Januvia 100 mg tablet TAKE 1 TABLET BY MOUTH ONCE DAILY active Not Available Not Available No t Available Humalog Mix 50-50 (U-100) Insulin 100 unit/mL subcutaneous suspension active Not Available Not Available N ot Available peg 3350 240 gram-electro lytes 22.72 gram-6.72 g-5.84 g powdr for soln active Not Available Not Available Not Available Dulera 200 mcg-5 mcg/actuatio n HFA aerosol inhaler Inhale 2 puffs twice a day by inhalation route for 30 days. active Not Available Not Available No t Available Xarelto 20 mg tablet active Not Available Not Available No t Available TRUEplus Insulin 0.5 mL 31 gauge x 5/16 syringe active Not Available Not Available Not Available Linzess 145 mcg capsule 2016 active Not Available Not Available Not Avai lable Eliquis 5 mg tablet TAKE 1 TABLET BY MOUTH TWICE DAILY active Not Available Not Available No t Available Vitals Date Recorded Heart rate Body weight Body height Body mass index (BMI) Body temperature Systolic blood pressure Diastolic blood pressure Provider Name and Address Organization Details Last Updated DateTime 6 84 /min 752532. 952944 g 172.72 cm 36.9 kg/m2 98.4 [degF] 124 mm[Hg] 60 mm[Hg] Hyun Love LPN [facility] 6 16:24:26 Date Recorded Body height Body weight Body mass index (BMI) Oxygen saturation Oxygen saturation in Arterial blood by Pulse oximetry Heart rate Body temperature Systolic blood pressure Diastolic blood pressure Provider Name and Address Organization Details Last Updated DateTime 6 172.72 cm 993113. 28 g 34.2 kg/m2 98 % 98 % 57 /min 97.9 [degF] 114 mm[Hg] 80 mm[Hg] Coleen Engel MA [facility] 6 16:39:10 Date Recorded Body height Body weight Body mass index (BMI) Oxygen saturation Oxygen saturation in Arterial blood by Pulse oximetry Heart rate Body temperature Systolic blood pressure Diastolic blood pressure Provider Name and Address Organization Details Last Updated DateTime 7 172.72 cm 04155.2 g 32 kg/m2 98 % 98 % 115 /min 98.4 [degF] 126 mm[Hg] 80 mm[Hg] Coleen Engel MA [facility] 7 16:07:25 Date Recorded Body height Body weight Body mass index (BMI) Oxygen saturation Oxygen saturation in Arterial blood by Pulse oximetry Heart rate Body temperature Systolic blood pressure Diastolic blood pressure Provider Name and Address Organization Details Last Updated DateTime 7 172.72 cm 401739 g 39.9 kg/m2 99 % 99 % 112 /min 97.9 [degF] 108 mm[Hg] 70 mm[Hg] Coleen Engel MA [facility] 7 14:27:15 Date Recorded Body height Body mass index (BMI) Body weight Oxygen saturation Oxygen saturation in Arterial blood by Pulse oximetry Heart rate Body temperature Systolic blood pressure Diastolic blood pressure Provider Name and Address Organization Details Last Updated DateTime 7 172.72 cm 44.3 kg/m2 225518. 18 g 99 % 99 % 89 /min 97.9 [degF] 120 mm[Hg] 70 mm[Hg] Coleen Engel MA [facility] 7 14:17:22 Social History Question Answer Notes LastModified by Organizat ion Details LastModified Time Tobacco Smoking Status Never Smoker Sendy Ge MA [facility], [facility] 01/15/2015 10:55:56 Do You Have An Advance Directive? No Information not available 01/15/2015 What Is Your Level Of Alcohol Consumption? Occasional Information not available 01/15/2015 What Is Your Level Of Caffeine Consumption? Heavy Information not available 01/15/2015 How Much Tobacco Do You Chew? None Information not available 01/15/2015 Are You Currently Employed? No Information not available 06/30/2015 What Type Of Diet Are You Following? REGULAR Information not available 06/30/2015 Education 11 Information no t available 06/30/2015 Are There Any Guns Present In Your Home? No Information not available 01/15/2015 Hard Of Hearing Or Deaf In One Or Both Ears? No Information not available 01/15/2015 Legally Blind In One Or Both Eyes? No Information no t available 01/15/2015 Live Alone Or With Others? Alone Information not available 06/30/2015 How Many Children Do You Have? 0 Information not available 06/30/2015 Performs Monthly Self-breast Exam? No Information no t available 01/15/2015 What Is Your Relationship Status? Information not available 06/30/2015 Seat Belts Used Routinely Yes Information not available 01/15/2015 Are You Sexually Active? No Information not available 06/30/2015 Smoke Alarm In Home Yes Information not available 01/15/2015 How Much Tobacco Do You Smoke? No Information not available 01/15/2015 General Stress Level Medium Information not available 06/30/2015 Do You Use Sunscreen Routinely? No Information not available 01/15/2015 Sex: Unknown Functional Status Question Answer Note LastModified by Organization D etails LastModified Time What is your exercise level? None Information not available 06/30/2015 Mental Status None recorded. Family History Nothing Reported. Medical History Condition Response Coronary Artery Disease N Blood Diseases N Kidney Cyst N Hyperthyroidism N Blood Transfusion N MRSA N Blood disorders N Emphysema N COPD N Blood Clots N Depression N Pneumonia N Peripheral Arterial Disease N Premature N Edema N TIA N Headaches/Migraines N Anxiety Disorder N Obesity N Infertility N Polyps N Acid Reflux (GERD) Y Hematuria N Stroke N Neck Injury N Polio N Hospital Admission other than N Neurologic Disorder N Other Sleep Disorders N Rheumatoid Arthritis N Fibromyalgia N Abdominal Aortic Aneurysm Repair N Kidney Disease N Heart Conditions N Heart Disease/Heart Problems N Hospitalizations N Brain Tumors N Acne N Eating Disorder N Skin Problems N Constipation N Meningitis N Tuberculosis N Cerebral Palsy N Myocardial Infarction N Asthma N Substance Abuse N Peripheral Vascular Disease N Vertigo N Sleep Disorder N Cirrhosis N Pulmonary Embolism N Chicken Pox N Flomax Use Past or Present N Hematologic Disease N Anxiety/Depression N Thyroid Disease N Colon Cancer N Glaucoma N Lung Disease N Developmental or Behavioral Disorders N Bipolar N Pacemaker N Diverticulitis/Diverticulosis N Anesthesia Complications N Orthopedic Problems N Orthotics N Head Injury/Concussion N Congenital Anomalies N Dowd Bite N Chronic Kidney Disease N Endometriosis N Liver Disease N Dialysis N Schizophrenia N Speech Delay N Chronic Obstructive Pulmonary Disease N Parkinson's Disease N Thyroid Problems N GI Problems N Developmental Delay N Anemia N Immune System Disorder N Multiple Sclerosis N Colon Polyps N Heart Attack (TN) N Diabetes Y Cardiomyopathy N Blood Transfusions N Heart Problems/Murmur N Eye Trauma N Congestive Heart Failure (CHF) N Valvular Heart Disease N Hyperlipidemia N Double Vision N Abuse/Domestic Violence N Hepatitis B N Lupus N Epilepsy/Seizures N Reflux/GERD N Aneurysm N Bronchitis N Heart Disease N Hypertension Y Pre-Eclampsia N Heart Failure N Other N Gout N High Blood Pressure Y Atrial Fibrillation N Kidney Stones N Head Trauma/Injury N Congenital Heart Disease N Spine Problems N Gastrointestinal Disease N Lung Mass N Sinusitis N Obstructive Sleep Apnea N Muscle, Joint, or Bone Problems N Autoimmune disease N Vision or Eye Problems N Arthritis N Blood Clot N Cancer N Seasonal allergies N Leg or Foot Ulcers N Raynaud's Disease N Aortic Aneurysm N Arrhythmia N Headaches N Heart Problems N Ambloypia N Ear or Hearing Problems N Hyperparathyroidism N Migraines N Artificial Joints N Kidney or Bladder Problems Y NSAID Use N Encephalitis N PTSD N Ulcers N Prostate Hypertrophy N Bleeding Disorder N AIDS/HIV N Urinary Tract Infection N Back Problems N Allergies N Atrial Flutter N GERD/Reflux N Hepatitis N Autism Spectrum Disorder (ASD) N Breast Cancer N Hernia N Hypothyroidism N Breast Problem N Genitourinary Disease N Deep Vein Thrombosis N Varicose Veins N Cystic Fibrosis N Hearing Loss N Developmental Problems N Carotid Disease N Vitamin D Deficiency N ADHD N Bladder or Kidney Problems N High Cholesterol N [place] N Valvular Abnormalities N Psychiatric/Mental Health Condition N Organ Transplant N Foot Deformity N Allergies/Hayfever N Dyslipidemia N Hyponatremia N Diabetic Eye Disease N Osteoporosis/Osteopenia N Back Pain N Proteinuria N Mental Illness N Neurological Problems N Ovarian Cancer N Bedwetting N Seizures/Epilepsy N Kidney Failure N Ocular trauma N Dementia N Diverticulitis N Sleep Apnea N Mental Problems N Warfarin Management N Osteoporosis N Gynecological History Statement/Question Response Abnormal Pap N STIs/STDs N HPV Vaccine N Most Recent Mammogram Current Control Method Menopause Age at First Child 19 Sexually Active? N Menses Monthly N Date of Last Pap Smear 07/12/2013 Sexual Problems? N LMP Unknown Desired Control Method None Obstetrics History GPAL:G 1 P 0 0 1 0 Type Value Multiple Births 0 Full Term 0 Induced 0 Spontaneous 1 Premature 0 Living 0 Ectopics 0 Total 1 Immunizations Vaccine Type Date Status Note Provider Nam e and Address Organization Details Recorded Time COVID-19, mRNA, LNP-S, PF, 30 mcg/0.3 mL dose 12/23/2020 completed [place] [facility] 04/03/2021 16:39:23 COVID-19, mRNA, LNP-S, PF, 30 mcg/0.3 mL dose 01/18/2021 completed [place] - [facility] 04/03/2021 16:39:50 Influenza, split virus, quadrivalent, PF 07/02/2014 completed Not Available [facility] 0 02:11:35 Past Encounters Encounter ID Performer Location Encounter Start Date Encounter Closed Date Diagnosis/Indication Diagnosis SNOMED-CT Code Diagnosis ICD10 Code [id number] SHAWN Pollard (Adult Med) [address] [place] [address] 01/15/2015 10:15:07 01/15/2015 13:28:38 Diabetes mellitus 46866233 Gastroesop hageal reflux disease 950051559 Sinusitis 80593512 Bladder mu scle dysfunction - overactive 439029598 [id number] Kala ([employer]) [address] [place] [id number] 06/30/2015 09:48:50 06/30/2015 10:53:18 Gynecologic examination 20757721 Screening mammography 24 574690 Screening for osteoporosis 260919467 Vaginitis and vulvovaginitis 428231800 [id number] AARON Gonzalez (Adult Med) [address] [place] [id number] 0 08/08/2015 09:49:09 08/08/2015 10:32:45 Bladder muscle dysfunction - overactive 397138723 N32.81 Cardiomyopathy 00959981 I42.9 Diabetes mellitus 388039 09 E11.9 Gastroesop hageal reflux disease 747878995 K21.9 Dysuria 55752691 R30.9 Depressive disorder 3548 9007 F32.9 Insomnia 498764639 G47.0 0 Knee pain 52024664 M25.5 69 Dysphagia 68862436 R13.1 0 Vaginitis and vulvovaginitis 469371753 N76.0 [id number] AARON Gonzalez (Adult Med) [address] [place] [address] 0 10/07/2015 13:40:13 10/07/2015 14:28:56 Acute urinary tract infection 531965679 N39.0 Cardiomyopathy 14124621 I42.9 Depressive disorder 3548 9007 F32.9 Diabetes mellitus 724414 09 E11.9 Asthma 715892486 J45.90 9 [id number] AARON Gonzalez (Adult Med) [address] [place] [id number] 0 12/08/2015 14:21:28 12/10/2015 12:06:19 Acute urinary tract infection 679562109 N39.0 Diabetes mellitus 684795 09 E11.9 Low back pain 404829742 M54.5 [id number] AARON Gonzalez (Adult Med) [address] [place] [id number] 0 02/02/2016 13:24:50 02/02/2016 14:32:04 Osteoarthritis of knee 887043725 M17.9 Thumb join t painful on movement 424480699 M79.644 Diabetes mellitus 475573 09 E11.9 Cardiomyopathy 30214405 I42.9 Gastroesop hageal reflux disease 067339319 K21.9 Insomnia 737751717 G47.0 0 Low back pain 346913468 M54.5 Acute urin [place] tract infection 801701986 N39.0 Bladder mu scle dysfunction - overactive 487950837 N32.81 Depressive disorder 3548 9007 F32.9 Dysphagia 59191319 R13.1 0 [id number] AARON Gonzalez (Adult Med) [address] [place] [address] [id number] 0 03/01/2016 14:08:56 03/01/2016 14:46:03 Sinusitis 29099821 J32.9 Asthma 393872235 J45.90 9 Bladder mu scle dysfunction - overactive 019875202 N32.81 Cardiomyopathy 95617554 I42.9 Depressive disorder 3548 9007 F32.9 Diabetes mellitus 685392 09 E11.9 Gastroesop hageal reflux disease 092289046 K21.9 Low back pain 504326358 M54.5 Knee pain 09796698 M25.5 69 [id number] AARON Gonzalez (Adult Med) [address] [place] [id number] 0 06/03/2016 16:06:49 06/03/2016 16:53:01 Tinea capitis 9604270 B35.0 Depressive disorder 3548 9007 F32.9 Acute urin [place] tract infection 232539894 N39.0 Low back pain 158341460 M54.5 [id number] AARON Gonzalez (Adult Med) [address] [place] [address] [id number] 0 09/21/2016 16:19:17 09/21/2016 17:18:30 Acute urinary tract infection 525952522 N39.0 Osteoarthr itis of knee 632711341 M17.9 Low back pain 869358004 M54.5 Depressive disorder 3548 9007 F32.9 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 Diabetes mellitus 319660 09 E11.9 Sleep apnea 05699576 G47 .30 Cardiomyopathy 94322057 I42.9 [id number] AARON Gonzalez (Adult Med) [address] [place] [id number] 11/25/2016 15:45:19 11/25/2016 18:04:35 Dysuria 82855211 R30.9 Low back pain 976875942 M54.5 Asthma 275282541 J45.90 9 [id number] AARON Gonzalez (Adult Med) [address] [place] [id number] 0 02/01/2017 14:17:05 02/01/2017 17:14:28 Acute urinary tract infection 310682690 N39.0 Gastroesop hageal reflux disease 804072429 K21.9 Cardiomyopathy 22442294 I42.9 Diabetes mellitus 647037 09 E11.9 Periodic l imb movement disorder 678262873 G47.61 Depressive disorder 3548 9007 F32.9 Low back pain 214124943 M54.5 Essential hypertension 72330544 I10 [id number] AARON Gonzalez (Adult Med) [address] [place] [id number] 0 04/04/2017 13:58:46 04/05/2017 09:44:50 Viral hepatitis C 52261897 B19.20 Essential hypertension 41728813 I10 Insomnia 483483676 G47.0 0 Asthma 607566169 J45.90 9 Gastroesop hageal reflux disease 089073406 K21.9 Osteoarthr itis of knee 592642788 M17.9 Low back pain 963294988 M54.5 Knee pain 79523033 M25.5 69 Depressive disorder 3548 9007 F32.9 Periodic l imb movement disorder 493234283 G47.61 Cardiomyopathy 80749883 I42.9 Sleep apnea 51934124 G47 .30 Diabetes mellitus 620160 09 E11.9 Urinary tr act infectious disease 22746282 N39.0 Health Concerns Section Related Observation LastModified by Organization Detai ls LastModified Time None Recorded Concern Status LastModified by Organization Details LastModified Time None Recorded Advance Directives Directive N: Payers Encounter Date Sequence Insurance Name Policy Number Policy Ojeda Covered Member ID Ojeda Member ID Guarantor Name 06/03/2016 1 [facility] PRIOR TO 04/09/2021 (MEDICAID REPLACEMENT - HMO) Loretta Penn [id number] Lorettakathy Penn 09/21/2016 1 [facility] PRIOR TO 04/09/2021 (MEDICAID REPLACEMENT - HMO) Lorettakathy Penn [id number] Lorettakathy Penn 11/25/2016 1 [facility] PRIOR TO 04/09/2021 (MEDICAID REPLACEMENT - HMO) Loretta Penn [id number] Lorettakathy Penn 02/01/2017 1 [facility] PRIOR TO 04/09/2021 (MEDICAID REPLACEMENT - HMO) Loretta Penn [id number] Lorettakathy Penn 04/04/2017 1 [facility] PRIOR TO 04/09/2021 (MEDICAID REPLACEMENT - HMO) Loretta Penn [id number] Loretta Penn Notes Date Note Type Note Provider Name and Address Organization Details Recorded Time 09/21/2016 text/html lonely without her Jey Klein PA-C Attn: [address],[address] [place], [address], [facility] 09/21/2016 17:44:29 11/25/2016 text/html bladder infection Jey Klein PA-C Attn: [employer],[address] [place], [address], [facility] 11/25/2016 21:09:29 02/01/2017 text/html frequency , flank pain Jey Klein PA-C Attn: [employer],[address] [place], [address], [facility] 02/01/2017 16:33:13 04/04/2017 text/html hospital upped her 70/30 insulin to 18 am ... 10 pm Jey Klein PA-C Attn: [employer],[address] [place], [address], [facility] 04/04/2017 17:04:09 OBGyn Episode No OBEpisode recorded.
--- OUTSIDE RECORDS SUMMARY | 2024-10-07 00:18 | XMS_ITS | Referral Summary ---
Author Organization [facility] Address [address] [place] [address] Care Team Providers Care Shaft Headman Name Role Phone Fredis Klein JOHN-[employer]NAGER [employer] Primary Care Provider Source Comments [facility],non-owned Affiliates and Associated Physician Practices is amultiple site organization consisting of ambulatory clinics and hospital sitesin [place], [place], [place] and [place]. This disclosure is being madepursuant to the Care Everywhere program and may not contain all information available regarding this patient. Last updated 18.[facility] Allergies Active Allergy Reactions Criticality Noted [...] 07/15/2016 4:59 PM CDT Plan of Treatment Not on file Care Teams Shaft Headman Relationship Specialty Start Date End Date Fredis Klein, JOHN-[employer]NA[employer] [address] [place] [address] PCP - General 08/08/18
--- OUTSIDE RECORDS SUMMARY | 2024-10-07 00:18 | XMS_ITS | Encounter Summary ---
Author Organization [facility] Address [address] [place] [address] Care Team Providers Care Electrical Worker Name Role Phone Chase Lord MD Primary Care Provider Reason for Visit * Reason Onset Date Comments Follow-up 07/17/2016 Encounter Details Date Type Department Care Team (Late st Contact Info) Description 07/17/2016 Telephone [facility] [id number] [place] [phone] Kacey Felipe APRN-CNP [address] [address] Follow-up Social History Tobacco Use Types Packs/Day Years Used Date Smoking Tobacco: Never Assessed Sex and Gender Information Value Date Recorded Sex Assigned at Not on file Gender Identity Not on file Sexual Orientation Not on file documented as of this encounter Miscellaneous Notes * Telephone Encounter - Kacey Felipe APRN-CNP - 07/17/2016 1:02 PM CDT LMOR documented in this encounter Plan of Treatment Not on file documented as of this encounter Visit Diagnoses Not on filedocumented in this encounter Care Teams Electrical Worker Relationship Specialty Start Date End Date Chase Lord MD [address] [place] [address] PCP - General Internal Medicine 07/15/16 08/07/18 documented as of this encounter
--- OUTSIDE RECORDS SUMMARY | 2024-10-07 00:19 | XMS_ITS | Encounter Summary ---
Author Organization [facility] Address [address] [place] [address] Phone Care Team Providers Care Drop Wire Hanger Name Role Phone Oswaldo Serrano MD Primary Care Provider [phone] Angel Crowe DPM Unavailable [phone] Mora Fritz Unavailable Unavailable Ok Jorge MD Unavailable Orlin Urbina APRN, AUTOMOBILE INSURANCE CLAIM EXAMINER Unavailable [phone] Encounter Details Date Type Department Care Team (Late st Contact Info) Description 09/04/2024 Documentation Only [facility] - [facility] Medicine - [place] [address] [place] [address] Oswaldo Serrano MD #[address] [address] Social History Tobacco Use Types Packs/Day Years Used Date Smoking Tobacco: Never Smokeless Tobacco: Never Alcohol Use Standard Drinks/Week Comments No 0 (1 standard drink = 0.6 oz pur e alcohol) [facility] Utilities Answer Date Recorded In the past 12 months has e electric, gas, oil, or water company threatened to shut off services in your home? No 11/09/2023 Social Connection and Isolat ion Panel [NHANES] Answer Date Recorded In a typical week, how many times do you talk on the phone with family, friends, or neighbors? More than three times a week 11/09/2023 How often do you get togethe r with friends or relatives? More than three times a week 11/09/2023 How often do you attend chur ch or amish services? Never 11/09/2023 Do you belong to any clubs o r organizations such as religious groups, unions, fraternal or athletic groups, or school groups? No 11/09/2023 How often do you attend meet ings of the clubs or organizations you belong to? Never 11/09/2023 Are you , , di vorced, , never , or living with a partner? 11/09/2023 AUDIT-C Answer Date Recorded Q1: How often do you have a drink containing alcohol? Never 11/09/2023 Q2: How many drinks containi ng alcohol do you have on a typical day when you are drinking? Patient does not drink Q3: How often do you have si x or more drinks on one occasion? Never 11/09/2023 Overall Financial Resource Strain (CARDIA) Answe r Date Recorded How hard is it for you to pa y for the very basics like food, housing, medical care, and heating? Hard 11/09/2023 PHQ-2 Answer Date Recorded Total Score - Questions 1-9 0 11/0 10/2023 [facility]at ional Health - Occupational Stress Questionnaire Answer Date Recorded Do you feel stress - tense, restless, nervous, or anxious, or unable to sleep at night because your mind is troubled all the time - these days? Very much 11/09/2023 Exercise Vital Sign Answer Date Recorde d On average, how many days pe r week do you engage in moderate to strenuous exercise (like a brisk walk)? 2 days 11/09/2023 On average, how many minutes do you engage in exercise at this level? 20 min 11/09/2023 Hunger Vital Sign Answer Date Recorded Within the past 12 months, y ou worried that your food would run out before you got the money to buy more. Often true 11/09/19 24 Within the past 12 months, t he food you bought just didn't last and you didn't have money to get more. Often true 11/09/2023 PRAPARE - Transportation Answer Date Re corded In the past 12 months, has l ack of transportation kept you from medical appointments or from getting medications? No 10/12 In the past 12 months, has l ack of transportation kept you from meetings, work, or from getting things needed for daily living? No 11/09/2023 Housing Stability Vital Sign Answer Charlie e Recorded In the last 12 months, was t here a time when you were not able to pay the mortgage or rent on time? No 11/09/2023 In the last 12 months, how many places have you lived? 1 11/09/2023 In the last 12 months, was t here a time when you did not have a steady place to sleep or slept in a snf (including now)? No 11/09/2023 Education Answer Date Recorded What is the highest level of school you have completed or the highest degree you have received? 9th grade 05/03/2023 Sexually Active Control Partners Comments Not Currently Male Comments No Sex and Gender Information Value Date Recorded Sex Assigned at Not on file Legal Sex Female 3:04 PM CDT Gender Identity Not on file Sexual Orientation Not on file documented as of this encounter Progress Notes * Tina Cortes CMA - 09/04/2024 11:59 PM CST Form completed and faxed back successfully to [facility] Fax #: [phone] TECH documented in this encounter Plan of Treatment Upcoming Encounters Date Type Department Care Team (Ronan st Contact Info) Description 10/08/2024 2:15 PM EVS TECH Office Visit [facility] [address] [place] [address] Orlin Urbina, WOOD CASKET MAKER, AUTOMOBILE INSURANCE CLAIM EXAMINER [address] [place] [address] 10/18/2024 2:15 PM EVS TECH Appointment [facility] 1 [place] [address] Oswaldo Serrano MD #[address] [address] Discharge Disposition: Discharged to home or Selfcare 11/29/2024 2:30 PM EVS TECH Office Visit [facility] - [facility] #2 [place] [address] Oswaldo Serrano MD #[address] [address] 11/30/2024 3:00 PM EVS TECH Office Visit [facility] - Endocr[facility]ology - [place] [address] [place] [address] Ok Jorge MD #[address] [address] documented as of this encounter Visit Diagnoses Not on filedocumented in this encounter Additional Health Concerns Assessment Noted Time PHQ-9 Depression Total Score: 0 08/10/20 24 1:59 PM CDT documented as of this encounter Care Teams Drop Wire Hanger Relationship Specialty Start Date End Date Oswaldo Serrano MD #[address] [address] PCP - General Family Medicine 05/19/17 Angel Crowe DPM #[address] [address] Consulting Physician Podiatry 06/16/17 Mora Fritz PR Behavioral Health Navigator 06/15/18 Ok Jorge MD #[address] [address] Consulting Physician Endocrinology 05/12/22 Orlin Urbina, WOOD CASKET MAKER, AUTOMOBILE INSURANCE CLAIM EXAMINER [address] [place] [address] Nurse Practitioner Advanced Practice Nurse 11/09/22 documented as of this encounter
--- OUTSIDE RECORDS SUMMARY | 2024-10-07 00:19 | XMS_ITS | Encounter Summary ---
Author Organization [facility] Address [address] [place] [address] Phone Care Team Providers Care Milling Machine Operator Gear Name Role Phone Oswaldo Serrano MD Primary Care Provider [phone] Angel Crowe DPM Unavailable [phone] Mora Fritz Unavailable Unavailable Ok Jorge MD Unavailable Orlin Urbina APRN, OCC MED PHYSICIAN Unavailable [phone] Reason for Visit * Reason Onset Date Comments Medication Refill 09/03/2024 Encounter Details Date Type Department Care Team (Late st Contact Info) Description 09/03/2024 Telephone [facility] #[address] [place] [address] Orlin Urbina APRN, OCC MED PHYSICIAN [address] [place] [address] Medication Refill Social History Tobacco Use Types Packs/Day Years Used Date Smoking Tobacco: Never Smokeless Tobacco: Never Alcohol Use Standard Drinks/Week Comments No 0 (1 standard drink = 0.6 oz pur e alcohol) [facility] Utilities Answer Date Recorded In the past 12 months has th e electric, gas, oil, or water company [...] often do you attend chur ch or sikhism services? Never 11/09/2023 Do you belong to any clubs o r organizations such as rastafari groups, unions, fraternal or athletic groups, or [...] Score - Questions 1-9 0 11/0 10/2023 [facility] of Occupat ional Health - Occupational Stress [...] place to sleep or slept in a chcf (including now)? No 11/09/2023 Education Answer Date [...] encounter Miscellaneous Notes * Telephone Encounter - Irma Diaz - 09/03/2024 1:08 PM CST Pt had to r/s her appt today. She states she's not feeling. Pt requesting refill of Gemtesa. Pleaseadvise RAFT CLEANER documented in this encounter Plan of Treatment Upcoming Encounters Date Type Department Care Team (Late st Contact Info) Description 10/08/2024 2:15 PM AIRCRAFT CLEANER Office Visit [facility] #[address] [place] [address] Orlin Urbina APRN, OCC MED PHYSICIAN [address] [place] [address] 10/18/2024 2:15 PM AIRCRAFT CLEANER Appointment [facility] 1 [place] [address] Oswaldo Serrano MD #[address] [address] Discharge Disposition: Discharged to home or Selfcare 11/29/2024 2:30 PM AIRCRAFT CLEANER Office Visit [facility] - [facility] - [place] [address] [place] [address] Oswaldo Serrano MD #[address] [address] 11/30/2024 3:00 PM AIRCRAFT CLEANER Office Visit [facility] - Endocrinology - [place] [address] [place] [address] Ok Jorge MD #[address] [address] documented as of this encounter Visit Diagnoses Diagnosis OAB (overactive bladder)- Primary Hypertonicity of bladder documented in this encounter Additional Health Concerns Assessment Noted Time PHQ-9 Depression Total Score: 0 08/10/20 24 1:59 PM CDT documented as of this encounter Care Teams Milling Machine Operator Gear Relationship Specialty Start Date End Date Oswaldo Serrano MD #[address] [address] PCP - General Family Medicine 05/19/17 Angel Crowe DPM #2 [facility] [address] [place] [address] Consulting Physician Podiatry 06/16/17 Mora Fritz RI Behavioral Health Navigator 06/15/18 Ok Jorge MD #2 [facility] [address] [place] [address] Consulting Physician Endocrinology 05/12/22 Orlin Urbina APRN, OCC MED PHYSICIAN [address] [place] [address] Nurse Practitioner Advanced Practice Nurse 11/09/22 documented as of this encounter
--- OUTSIDE RECORDS SUMMARY | 2024-10-07 00:19 | XMS_ITS | Encounter Summary ---
Author Organization [facility] Address [address] [place] [address] Phone Care Team Providers Care Inspector Crystal Name Role Phone Oswaldo Serrano MD Primary Care Provider [phone] Angel Crowe DPCiara Unavailable [phone] Mora Fritz Unavailable Unavailable Ok Jorge MD Unavailable Orlin Urbina APRN, LOGISTICS OFFICER Unavailable + [phone] Reason for Visit * Reason Onset Date Comments Medication Management 08/29/2024 Encounter Details Date Type Department Care Team (Late st Contact Info) Description 08/29/2024 Telephone [facility] [address] [place] [address] Oswaldo Serrano MD #[address] [address] Medication Management Social History Tobacco Use Types Packs/Day Years Used Date Smoking Tobacco: Never Smokeless Tobacco: Never Alcohol Use Standard Drinks/Week Comments No 0 (1 standard drink = 0.6 oz pur e alcohol) [facility] Utilities Answer Date Recorded In the [...] often do you attend chur ch or mandaeism services? Never 11/09/2023 Do you belong to any clubs o r organizations such as sikhism groups, unions, fraternal or athletic groups, or [...] Score - Questions 1-9 0 11/0 10/2023 [facility] Occupat ional Health - Occupational Stress [...] place to sleep or slept in a residential (including now)? No 11/09/2023 Education Answer Date [...] encounter Miscellaneous Notes * Telephone Encounter - Daly Rao RN - 08/30/2024 10:09 AM PHLEBOTOMY SUPPORT TECH Called and spoke with sister and she stated that patient did follow up with Cardiology, but they did not say anything about this. She will call Cardiology now and make sure patient is to continue these medications. BOTOMY SUPPORT TECH * Telephone Encounter - Oswaldo Serrano MD - 08/29/2024 8:58 PM PHLEBOTOMY SUPPORT TECH Pended med orders signed. Tell her to check with her Skidder Loader if she needs to stay on these meds. Thanks! BOTOMY SUPPORT TECH * Telephone Encounter - Daly Rao RN - 08/29/2024 4:55 PM CST Called and spoke with sister. She confirmed that patient was prescribed Magnesium Oxide 400 mg daily and Spironolactone 12.5 mg daily Scripts pend BOTOMY SUPPORT TECH * Telephone Encounter - Oswaldo Serrano MD - 08/29/2024 3:27 PM PHLEBOTOMY SUPPORT TECH Please pend me these refills after confirming the dose/directions. Thanks! BOTOMY SUPPORT TECH * Telephone Encounter - Georgina Oseguera - 08/29/2024 3:21 PM CST Patient got out of hospital around 3 weeks ago and was given 2 medications in hospital. She wants to know if she still needs to take these meds because if she does, she needs refills. Meds are: Spironolactone 25 mg Mag-oxide 400 mg [facility] in [place]. Please call [phone]. BOTOMY SUPPORT TECH documented in this encounter Plan of Treatment Upcoming Encounters Date Type Department Care Team (Late st Contact Info) Description 10/08/2024 2:15 PM PHLEBOTOMY SUPPORT TECH Office Visit [facility] #2 [place] [address] Orlin Urbina APRN, LOGISTICS OFFICER [address] [place] [address] 10/18/2024 2:15 PM PHLEBOTOMY SUPPORT TECH Appointment [facility] 1 [place] [address] Oswaldo Serrano MD #[address] [place] [address] Discharge Disposition: Discharged to home or Selfcare 11/29/2024 2:30 PM PHLEBOTOMY SUPPORT TECH Office Visit [facility] - Family Medicine [facility] #2 [facility] [place] [address] Oswaldo Serrano MD #[address] [place] [address] 11/30/2024 3:00 PM PHLEBOTOMY SUPPORT TECH Office Visit [facility] - Endocrinology [facility] #2 [place] [address] Ok Jorge MD #[address] [place] [address] Scheduled Orders Name Type Priority Associated Diagnoses Orde r Schedule BASIC METABOLIC PANEL W/ CALCIUM TOTAL Lab Routine Primary hypertension Expected: 09/12/2024 (Approximate), Expires: 08/29/2025 MAGNESIUM (MG) Lab Routine Hypomagnesemia Expected: 09/12/2024 (Approximate), Expires: 08/29/2025 documented as of this encounter Visit Diagnoses Diagnosis Hypomagnesemia- Primary Disorders of magnesium metabolism Primary hypertension Unspecified essential hypertension documented in this encounter Additional Health Concerns Assessment Noted Time PHQ-9 Depression Total Score: 0 08/10/20 24 1:59 PM CDT documented as of this encounter Care Teams Inspector Crystal Relationship Specialty Start Date End Date Oswaldo Serrano MD #[address] [place] [address] PCP - General Family Medicine 05/19/17 Angel Crowe DPM #2 [facility] [address] [place] [address] Consulting Physician Podiatry 06/16/17 Mora Fritz Behavioral Health Navigator 06/15/18 Ok Jorge MD #2 [facility] [address] [place] [address] Consulting Physician Endocrinology 05/12/22 Orlin Urbina APRN, LOGISTICS OFFICER [address] [place] [address] Nurse Practitioner Advanced Practice Nurse 11/09/22 documented as of this encounter
--- OUTSIDE RECORDS SUMMARY | 2024-10-07 00:19 | XMS_ITS | Encounter Summary ---
Author Organization [facility] Address [address] [place] [address] Care Team Providers Care Java Engineer Name Role Phone Chase Lord MD Primary Care Provider [phone] Reason for Visit * Reason Comments Bladder infection Encounter Details Date Type Department Care Team (Late st Contact Info) Description 07/15/2016 4:00 PM CDT Office Visit [facility] AT [address] [address] Provider, Haylie Sutherlandmdcourtney Acute cystitis without hematuria (Primary Dx); Proteinuria; Overactive bladder Social History Tobacco Use Types Packs/Day Years Used Date Smoking Tobacco: Never Assessed Sex and Gender Information Value Date Recorded Sex Assigned at Not on file Gender Identity Not on file Sexual Orientation Not on file documented as of this encounter Last Filed Vital Signs Vital Sign Reading [...] Mass Index 32.28 07/15/2016 4:59 PM CDT documented in this encounter Patient Instructions * Patient Instructions* Reema Banks APRN-[employer] WORKER - 07/15/2016 5:26 PM CDT Images from the original note were not included. -Increase fluids -Avoid caffeine -May take OTC Azo as directed up to 48 hours for relief of urinary symptoms -Follow up with PCP if no improvement 24-48 hours Urinary Tract Infection in Women HUNTER: A urinary tract infection (UTI) is caused by bacteria that get inside your urinary tract. Your urinary tract includes your kidneys, ureters, bladder, and urethra. Urine is made in your kidneys, and it flows from the ureters to the bladder. Urine leaves the bladder through the urethra. A UTI is morecommon in your lower urinary tract, which includes your bladder and urethra. Common symptoms include the following: ?? Urinating more often or waking from sleep to urinate ?? Pain or burning when you urinate ?? Pain or pressure in your lower abdomen ?? Urine that smells bad ?? Blood in your urine ?? Leaking urine Seek care immediately if: ?? You are urinating very little or not at all. ?? You are vomiting. ?? You have a high fever with shaking chills. ?? You have side or back pain that gets worse. Contact your healthcare provider if: ?? You have a fever. ?? You have white or yellow discharge from your vagina. ?? You do not feel better after 2 days of taking antibiotics. ?? You have questions or concerns about your condition or care. Treatment for a UTI may include any of the following: ?? Medicines help treat the bacterial infection or decrease pain and burning when you urinate. You may also need medicines to decrease the urge to urinate often. ?? Take your medicine as directed. Call your healthcare provider if you think your medicine is not helping or if you have side effects. Tell him if you are allergic to any medicine. Keep a list of the medicines, vitamins, and herbs you take. Include the amounts, and when and why you take them. Bring the list or the pill bottles to follow-up visits. Carry your medicine list with you in case of an emergency. Self-care: ?? Urinate when you feel the urge. Do not hold your urine. Urinate as soon as you feel you have to. ?? Drink liquids as directed. Ask how much liquid to drink each day and which liquids are best for you. You may need to drink more liquids than usual to help flush out the bacteria. Do not drink alcohol, caffeine, and citrus juices. These can irritate your bladder and increase your symptoms. ?? Apply heat on your abdomen for 20 to 30 minutes every 2 hours for as many days as directed. Heathelps decrease discomfort and pressure in your bladder. Follow up with your healthcare provider as directed: Write down your questions so you remember to ask them during your visits. ?? 2016 [employer]. Information is for End User's use only and may not be sold, redistributed or otherwise used for commercial purposes. All illustrations and images included in CareNotes?? are the copyrighted property of [employer] or [employer]. The above information is an dietetic aide only. It is not intended as medical advice for individual conditions or treatments. Talk to your doctor, nurse or pharmacist before following any medical regimen to see if it is safe and effective for you. documented in this encounter Progress Notes * Reema Banks APRN-CNP - 07/15/2016 5:10 PM CDT [facility] Chief Complaint Patient presents with ??? Bladder infection SUBJECTIVE: HPI Comments: when I pee it heller pt states symptoms have been occuring for approximately 2 weeks. +back pain. Denies fever or hematuria. General The history is provided by the relative. This is a new problem. The current episode started more than 1 week ago. The problem occurs daily. The problem has been gradually worsening. The emergency medicine caveat was mental retardation. Past Medical History Diagnosis Date ??? Diabetes mellitus ??? Hypertension ??? Depression ??? Arrhythmia ??? Overactive bladder ??? Cataracts, bilateral No current outpatient prescriptions on file prior to visit. No current facility-administered medications on file prior to visit. Past Surgical History Procedure Laterality Date ??? Appendectomy ??? Cholecystectomy History Social History ??? Marital Status: Single Spouse Name: N/A Number of Children: N/A ??? Years of Education: N/A Occupational History ??? Not on file. Social History Main Topics ??? Smoking status: Not on file ??? Smokeless tobacco: Not on file ??? Alcohol Use: Not on file ??? Drug Use: Not on file ??? Sexual Activity: Not on file Other Topics Concern ??? Not on file Social History Narrative ??? No narrative on file No family history on file. Current Outpatient Prescriptions Medication Sig Dispense Refill ? ? Insulin NPH Isophane & Regular (HUMULIN 70/30 SC) ? ? METFORMIN & DIET MANAGE PROD PO ? ? RANITIDINE & DIET MANAGE PROD PO ? ? LISINOPRIL & DIET MANAGE PROD PO ? ? TRAMADOL & DIETARY MANAGE PROD PO ??? Citalopram Hydrobromide (CELEXA PO) ??? Carvedilol (COREG PO) ??? OXYBUTYNIN CHLORIDE PO ??? NORTRIPTYLINE HCL PO ??? nitrofurantoin monohyd macro crystals (MACROBID) 100 MG capsule Take 1 Cap by mouth 2 times daily with morning and evening meal 14 Cap 0 No current facility-administered medications for this visit. Allergies Allergen Reactions ??? Sulfa Drugs REVIEW OF SYSTEMS: Review of Systems Constitutional: Negative. Respiratory: Negative. Cardiovascular: Negative. Gastrointestinal: Negative. Genitourinary: Positive for dysuria, frequency and flank pain. Negative for hematuria. All other systems reviewed and are negative. OBJECTIVE: General appearance: alert, well appearing, and in no distress. BP 122/84 mmHg Pulse 103 Temp(Src) 98.8 ??F (Oral) Resp 18 Wt 90.719 kg (200 lb) BMI 32.30 kg/m2 Physical Exam Constitutional: She is well-developed, well-nourished, and in no distress. Cardiovascular: Normal rate, regular rhythm and normal heart sounds. Pulmonary/Chest: Effort normal and breath sounds normal. Abdominal: Soft. Bowel sounds are normal. There is no tenderness. Musculoskeletal: Normal range of motion. Neurological: She is alert. Nursing note and vitals reviewed. ASSESSMENT: Office Visit on 07/15/16 URINALYSIS AUTO - POINT OF CARE (AMB) STL Result Value Ref Range Clarity UA clear Color UA yellow Leukocyte UA moderate Negative Nitrite UA neg Negative Urobilinogen UA 0.2 0.1 - 1.0 Protein UA 300+ Negative pH UA 5.0 5.0 - 8.0 pH units Blood UA neg Negative Specific Lucinda UA 1.030 1.002 - 1.030 Ketone UA neg Negative Bili UA neg Negative Glucose UA neg Negative Expiration Date 07/15/2016 Lot Number [id number] QC VERIFIED Yes Yes Encounter Diagnoses Name Primary? Acute cystitis without hematuria Yes ??? Proteinuria ??? Overactive bladder PLAN: Orders Placed This Encounter ??? URINALYSIS AUTO - POINT OF CARE (AMB) STL ??? nitrofurantoin monohyd macro crystals (MACROBID) 100 MG capsule Sig: Take 1 Cap by mouth 2 times daily with morning and evening meal Dispense: 14 Cap Refill: 0 -Increase fluids -Avoid caffeine -May take OTC Azo as directed up to 48 hours for relief of urinary symptoms -Go to ER if symptoms worsen or no improvement after 48 hours -Follow up with PCP tomorrow morning for follow up on protein in urine today -Continue Ditropan as prescribed documented in this encounter Plan of Treatment Not on file documented as of this encounter Procedures Procedure Name Priority Date/Time Associated Diagnosis Comments URINALYSIS AUTO - POINT OF CARE (AMB) STL Routine 07/15/2016 Acute cystitis without hematuria documented in this encounter Results * URINALYSIS AUTO - POINT OF CARE (AMB) STL (07/15/2016) Clarity UA POCT clear Color UA POCT yellow Leukocyte UA moderate Negative Nitrite UA POCT neg Negative Urobilinogen UA 0.2 0.1 - 1.0 Protein UA POCT 300+ Negative pH UA 5.0 5.0 - 8.0 pH units Blood UA neg Negative Specific Lucinda UA POCT 1.030 1.002 - 1.030 Ketone UA neg Negative Bilirubin UA POCT neg Negative Glucose UA neg Negative Expiration Date 07/15/2016 Lot # [id number] QC Verified Yes Yes URINE / Unknown 07/15/2016 [facility] - POINT OF C ARE ORDERABLES documented in this encounter Visit Diagnoses Diagnosis Acute cystitis without hematuria- Primary Acute cystitis Proteinuria Overactive bladder Hypertonicity of bladder documented in this encounter Care Teams Java Engineer Relationship Specialty Start Date End Date Chase Lord MD [address] [place] [address] PCP - General Internal Medicine 07/15/16 08/07/18 documented as of this encounter
--- OUTSIDE RECORDS SUMMARY | 2024-10-07 00:19 | XMS_ITS | Encounter Summary ---
Author Organization [facility] Address [address] [place] [address] Phone Care Team Providers Care Head Of Music Name Role Phone Oswaldo Serrano MD Primary Care Provider [phone] Angel Crowe DPM Unavailable Mora Fritz Unavailable Unavailable Ok Jorge MD Unavailable Orlin Urbina APRN, CDL INSTRUCTOR Unavailable [phone] Reason for Visit * Reason Comments Diabetes Mellitus Encounter Details Date Type Department Care Team (Late st Contact Info) Description 08/29/2024 2:45 PM LOCKSTITCH CUP SETTER Office Visit [facility] - [place] [address] [place] [address] Ok Jorge MD [address] [address] Type 2 diabetes mellitus treated with insulin (HCC) (Primary Dx); Insulin dose changed (HCC); Hypoglycemia; Class 3 severe obesity due to excess calories with serious comorbidity and body mass index (BMI) of 40.0 to 44.9 in adult (HCC) Discharge Disposition: Discharged to home or Selfcare Social History Tobacco Use Types Packs/Day Years Used Date Smoking Tobacco: Never Smokeless Tobacco: Never Tobacco Cessation:Counseling Given: Not Answered Alcohol Use Standard Drinks/Week Comments No 0 (1 standard drink = 0.6 oz pur e alcohol) [facility] Utilities Answer Date Recorded In the past 12 months has e [employer], gas, oil, or water [employer] threatened to shut off services in your [...] week 11/09/2023 How often do you attend [facility] or druze services? Never 11/09/2023 Do you belong to any clubs o r organizations such as zoroastrian groups, unions, fraternal or athletic groups, or [...] Score - Questions 1-9 0 11/0 10/2023 [facility] of Occupat ional Health - Occupational Stress [...] place to sleep or slept in a [facility] (including now)? No 11/09/2023 Education Answer Date [...] Sign Reading Time Taken Comments Blood Pressure 120/83 08/29/2024 2:39 PM LOCKSTITCH CUP SETTER Pulse 96 08/29/2024 2:39 PM LOCKSTITCH CUP SETTER Temperature 36.6 ??C (97.8 ??F) 08/29/2024 2:39 PM CS T Respiratory Rate 24 08/29/2024 2:39 PM LOCKSTITCH CUP SETTER Oxygen Saturation 100% 08/29/2024 2:39 PM LOCKSTITCH CUP SETTER Inhaled Oxygen Concentration - - Weight 120.2 kg (265 lb) 08/29/2024 2:39 PM LOCKSTITCH CUP SETTER Height - - Body Mass Index 44.1 02/23/2024 4:21 PM CDT documented in this encounter Patient Instructions * Patient Instructions* Ok Jorge MD - 08/29/2024 2:45 PM LOCKSTITCH CUP SETTER Please take Lantus 18 units in the morning Please take NovoLog (Humalog) 14 units before each meal Please use correctional factor insulin before each meal as directed Please monitor blood sugar before each meal and at bedtime Please bring blood sugar log for review at the next visit Contact Endocrinology Clinic for low blood sugar events Follow up visit in 3 months RULE OF 15: If you have signs/symptoms of low blood sugar (hypoglycemia),and/or your blood sugar isless than 70 mg/dl, you may choose one of the below treatments (~15 gm of carbohydrate):glucose tablets or 1?2 glass (4 oz.) of apple juice or 1/2 glass (4 oz.) of clear regular soda and recheck blood sugar in 15 minutes, If not above 80 mg/dl, retreat treatment until blood sugar is above 80 mg/dl.Once blood sugar is above 80-90 mg/dL, please give insulin as scheduled. Look at your feet, top and bottom every morning. If you have any signs of infection, such as:areas,change in feeling or temperature, swelling, blisters, or cracks in the skin, call your doctor rightaway. Apply lotion to dry skin areas to prevent cracks. Keep the skin between your toes clean and dry. CORRECTION FACTOR: 1:30 BLOOD GLUCOSE (SUGAR) CORRECTION FACTOR: 1:30 HUMALOG/NOVOLOG UNDER 70 TREAT LOW, USE RULE OF 15 71 - 140 +0 UNIT 141 - 170 +1 UNIT 171 - 200 +2 UNITS 201 - 230 +3 UNITS 231 - 260 +4 UNITS 261 - 290 +5 UNITS 291 - 320 +6 UNITS 321 - 350 +7 UNITS 351 - 380 +8 UNITS 381 - 400 +9 UNITS ABOVE 400 +10 UNITS STITCH CUP SETTER documented in this encounter Progress Notes * Vira Cordova RMA - 08/29/2024 2:45 PM CST Attached media from the original note were not included. CGM STITCH CUP SETTER * Ok Jorge MD - 08/29/2024 2:45 PM CST Subject&Objective Loretta Penn is a 63-year-old woman who comes to the Endocrinology office to discuss management of type 2 diabetes mellitus. 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 Other pertinent health history includes hypertension, dyslipidemia, and morbid obesity. The patient was initially diagnosed with diabetes >10 years ago. Medical history is taken from herand sister. Currently, she takes Lantus 18 units in the morning, Humalog 11 units with breakfast, 11 units withlunch, and 13 units with supper for management of hyperglycemia. The patient reports infrequent, mild hypoglycemic events with intact symptoms of hypoglycemia awareness. The patient denied severe lowblood sugar events requiring third republican intervention. Review of her CGM download for the past two weeks showed morning values in the range of 198 to 234 mg/dL, lunch values ranging from 205 to 261 mg/dL, dinner values in the range of 192 to 315 mg/dL, and bedtime values ranging from 192 to 276 mg/dL. Average blood glucose was 243 mg/dL +/-61. Hemoglobin A1c obtained in June 2024 was 7.7%, im proved from the previous measurement of 8.9% obtained in December 2023. Physical Exam Vitals: 08/29/24 1439 BP: 120/83 BP Location: Right Arm BP Position: Sitting BP Cuff Size: Regular Pulse: 96 Resp: 24 Temp: 97.8 ??F (36.6 ??C) TempSrc: Temporal SpO2: 100% Weight: 265 lb (120.2 kg) Constitutional: appears well-developed and well-nourished. No acute distress. Pulmonary/Chest: Effort normal Lab Results Component Value Date HGBA1C 8.9 (A) 01/04/2024 Lab Results Component Value Date CREATININE 1.03 (H) 11/09/2023 GFRNA 54 (L) 11/09/2023 CALCIUM 9.2 11/09/2023 SGPTALT 22 11/09/2023 Lab Results Component Value Date SODIUM 140 11/09/2023 POTASSIUM 4.0 11/09/2023 CHLORIDE 103 11/09/2023 CO2VEN 27 11/09/2023 MAGNESIUM 2.0 12/13/2020 Her CGM download was reviewed. Morning values in the range of 198 to 234 mg/dL, lunch values ranging from 205 to 261 mg/dL, dinnervalues in the range of 192 to 315 mg/dL, and bedtime values ranging from 192 to 276 mg/dL Average blood glucose was 243 mg/dL +/-61 14% in range <1% low Assessment and Plan Assessment Loretta Penn is a middle-aged woman with type 2 diabetes mellitus whose glycemic control was suboptimal based on review of her CGM download. Treatment consideration and lifestyle modificationwere discussed with her and her caregiver at some length. She will change Humalog 14 units before each meal and take insulin just before each meal as directed. The patient will return for office reevaluation in 3 months. PLAN: 1. Take Lantus 18 units in the morning 2. Take Humalog 14 units before each meal 3. Correctional factor insulin dosed at 1:30 if CBG is > 140 mg/dl 4. Monitor blood sugar QAC/QHS 5. Bring CBG log for review 6. Contact Endocrinology Clinic for low blood sugar events 7. RTC in 3 months Hypoglycemia PLAN: Consistent CHO diet Rule of 15 Obesity PLAN: 1. Low carb and calorie diet 2. Avoid snack and beverage between meal and at bedtime Ok Jorge MD 08/29/2024 STITCH CUP SETTER documented in this encounter Plan of Treatment Upcoming Encounters Date Type Department Care Team (Late st Contact Info) Description 10/08/2024 2:15 PM LOCKSTITCH CUP SETTER Office Visit [facility] [address] [place] [id number] Orlin Urbina, DIANETICIST, CDL INSTRUCTOR [address] [place] [address] 10/18/2024 2:15 PM LOCKSTITCH CUP SETTER Appointment [facility] [address] [place] [address] Oswaldo Serrano MD #[address] [address] Discharge Disposition: Discharged to home or Selfcare 11/29/2024 2:30 PM LOCKSTITCH CUP SETTER Office Visit [facility] - [facility] [address] [place] [address] Oswaldo Serrano MD #[address] [address] 11/30/2024 3:00 PM LOCKSTITCH CUP SETTER Office Visit [facility] - Endocrinology [facility] [address] [place] [address] Ok Jorge MD #[address] [address] documented as of this encounter Visit Diagnoses Diagnosis Type 2 diabetes mellitus treated with insulin (HCC)- Primary Insulin dose changed (HCC) Hypoglycemia Hypoglycemia, unspecified Class 3 severe obesity due to excess calories with serious comorbidity and body mass index (BMI) of 40.0 to 44.9 in adult (HCC) documented in this encounter Additional Health Concerns Assessment Noted Time PHQ-9 Depression Total Score: 0 08/10/20 24 1:59 PM CDT documented as of this encounter Care Teams Head Of Music Relationship Specialty Start Date End Date Oswaldo Serrano MD #[address] [address] PCP - General Family Medicine 05/19/17 Angel Crowe DPM #[address] [address] Consulting Physician Podiatry 06/16/17 Mora Fritz LA Behavioral Health Navigator 06/15/18 Ok Jorge MD #[address] [address] Consulting Physician Endocrinology 05/12/22 Orlin Urbina, DIANETICIST, CDL INSTRUCTOR [address] [place] [address] Nurse Practitioner Advanced Practice Nurse 11/09/22 documented as of this encounter
--- OUTSIDE RECORDS SUMMARY | 2024-10-07 00:19 | XMS_ITS | Clinical Summary ---
Author Organization [facility] ENTER Address [address] [place] [address] Phone Care Team Providers Care Strip Winder Name Role Phone Oswaldo Serrano MD Primary Care Provider [phone] Angel Crowe DPM Unavailable [phone] Mora Fritz Unavailable Unavailable Ok Jorge MD Unavailable Orlin Urbina APRN, POLICY DIRECTOR Unavailable Allergies Active Allergy Reactions Criticality Noted Date Comments Sulfa Antibiotics Unknown,Hives 07/15/2016 Sulfamethoxazole-Trimethoprim Hives Medications dilTIAZem (CARDIZEM) 30 MG Tablet TK 1 T PO TID 0 04/28/20 17 Active Blood Glucose Monitoring Suppl Device Test blood glucose 4 times daily. E11.9, insulin dependent 1 Each 12/19/19 20 Active Lancets Misc Test four times daily. E11.9, insulin dependent 400 Lancet 3 12/19/19 20 Active Insulin Syringe-Needle U-100 (TRUEPLUS INSULIN SYRINGE) 31G X 5/16 0.5 ML Misc USE 4 TIMES DAILY 400 Each 3 12/19/19 20 Active Entresto 24-26 MG Tablet 09/11/20 21 Active Continuous Blood Gluc Transmit (Dexcom G6 Transmitter) Misc 12/03/19 22 Active Cyanocobalamin (B-12) 500 MCG Tablet Take 1 Tablet by mouth daily. 90 Tablet 3 11/14/19 23 Active Blood Glucose Monitoring Suppl Device Test blood glucose 1x daily, E11.9, insulin dependent 1 Each 12/31/19 23 Active Lancets Misc 1 Lancet by Does not apply route daily. Test blood glucose 1x daily. E11.9, insulin dependent 100 Lancet 3 12/31/19 23 Active fluticasone (FLONASE) 50 MCG/ACT Suspension 1-2 Sprays by Nasal route daily. Use in each nostril as directed. 1 g 3 02/02/20 23 Active Continuous Blood Gluc Welding Technician (Dexcom G7 Welding Technician) Device 1 Each by Does not apply route 4 times daily. Use to check glucose 4x daily. 1 Each 04/29/20 23 Active NovoLOG FlexPen 100 UNIT/ML Solution Pen-injector INJECT 16-13-10 UNITS BEFORE EACH MEAL -- ISF OF 1:30 IF GREATER THAN 140MG/DL UP TO 70 UNITS PER DAY 75 mL 1 07/18/20 23 Active Insulin Pen Needle (BD Pen Needle Trina 2nd Gen) 32G X 4 MM Mis USE TO INJECT FOUR TIMES DAILY 400 Each 3 10/11/19 24 Active Glucose Blood Strip Use to test blood glucose 1x daily. E11.9, insulin dependent 100 Strip 3 12/15/19 24 Active Glucose Blood (OneTouch Verio) Strip 4 times a day 400 Each 3 01/04/20 24 Active potassium chloride SA (KLORCON M) 20 MEQ Tablet Controlled ReleaseIndicat ions:Chronic congestive heart failure, unspecified heart failure type (HCC) Take 1 Tablet by mouth daily. 90 Tablet 1 01/20/20 24 Active insulin glargine (Basaglar KwikPen) 100 UNIT/ML Solution Pen-injector 18 Units by Subcutaneous route every morning. 15 mL 1 02/09/20 24 Active furosemide (LASIX) 40 MG TabletIndicati ons:Chronic congestive heart failure, unspecified heart failure type (HCC) TAKE 1 TABLET BY MOUTH DAILY 90 Tablet 2 04/02/20 24 Active nortriptyline (PAMELOR) 10 MG Capsule Take 1 Capsule by mouth nightly. 90 Capsule 1 05/18/20 24 Active escitalopram (LEXAPRO) 10 MG Tablet TAKE 1 TABLET BY MOUTH DAILY 90 Tablet 1 06/18/20 24 Active albuterol 108 (90 Base) MCG/ACT Aerosol Solution INHALE 1 TO 2 PUFFS BY MOUTH EVERY 4 HOURS NEEDED FOR COUGH 18 g 08/05/20 24 Active omeprazole (PriLOSEC) 20 MG CAPSULE DELAYED RELEASE TAKE 1 CAPSULE BY MOUTH DAILY 90 Capsule 1 08/07/20 24 Active metoprolol Succinate (TOPROL-XL) 100 MG TABLET SR 24 HR Take 100 mg by mouth daily. Active apixaban (ELIQUIS) 5 MG Tablet Take 5 mg by mouth 2 times daily. Active LORazepam (ATIVAN) 0.5 MG TabletIndicati ons:Agitation Take 1 Tablet by mouth every 8 hours as needed for Anxiety or Other (agitation). 30 Tablet 08/10/20 24 Active Continuous Glucose Sensor (Greenboxcom G7 Sensor) Misc 1 Each by Does not apply route every 10 days. Change sensor every 10 days. 9 Each 1 08/29/20 24 Active spironolactone (ALDACTONE) 25 MG Tablet Take 0.5 Tablets by mouth daily. 15 Tablet 08/29/20 24 Active magnesium oxide (MAG-OX) 400 MG TabletIndicati ons:Hypomagnes emia Take 1 Tablet by mouth daily. 30 Tablet 08/29/20 24 Active docusate sodium (COLACE) 100 MG Capsule TAKE 1 CAPSULE BY MOUTH TWICE DAILY 60 Capsule 2 09/17/20 24 Active levothyroxine (SYNTHROID) 75 MCG Tablet TAKE 1 TABLET BY MOUTH EVERY MORNING 90 Tablet 3 09/23/20 24 Active levothyroxine (SYNTHROID) 75 MCG Tablet Take 1 Tablet by mouth every morning. 90 Tablet 3 08/28/20 23 024 Discontinued docusate sodium (COLACE) 100 MG Capsule Take 1 Capsule by mouth 2 times daily. 60 Capsule 2 05/18/20 24 024 Discontinued Vibegron (Gemtesa) 75 MG TabletIndicati ons:OAB (overactive bladder) Take 75 mg by mouth daily for 30 days. 30 Tablet 2 09/03/20 24 024 Active Problems Problem Noted Date Diagnosed Date Yeast infection 02/23/2024 Bladder infection 02/23/2024 Fall 02/23/2024 Postmenopausal 02/23/2024 Infection of both eyes 11/09/2023 Fatigue 08/09/2023 Hematuria 07/18/2023 Systolic congestive heart failure 05/03/2023 Foul smelling urine 05/03/2023 Skin lesion of back 02/01/2023 Noncompliance 02/01/2023 Pain of upper extremity 01/13/2023 Pain of lower extremity 01/13/2023 RSV (acute bronchiolitis due to respiratory syncytial virus) 10/14/2022 Abnormal mammogram 10/28/2021 Morbid obesity 10/07/2021 Elevated creatine kinase 02/15/2021 High blood pressure 2020 B12 deficiency 2020 Hypotension 12/18/2020 Intractable cluster headache syndrome 12/18/2020 Chronic joint pain 09/16/2020 Dizziness 05/29/2020 Diarrhea 05/29/2020 Hyperlipidemia 03/18/2020 Class 3 severe obesity due t o excess calories with serious comorbidity and body mass index (BMI) of 40.0 to 44.9 in adult 12/14/2019 Elevated LFTs 08/28/2019 Urinary frequency 08/28/2019 Presence of cardiac defibrillator 07/25/2018 Debilitated patient 07/14/2017 Anemia of infection and chronic disease 06/17/20 17 Iron deficiency 06/17/2017 Diabetic polyneuropathy asso ciated with type 2 diabetes mellitus 06/16/2017 Type 2 diabetes mellitus wit h diabetic polyneuropathy, with long-term current use of insulin 06/16/2017 Dermatophytosis of nail 06/16/2017 Iron deficiency anemia 05/30/2017 Hypothyroidism 05/30/2017 Vitamin D deficiency 05/30/2017 Hypokalemia 05/30/2017 Elevated hemoglobin A1c 05/22/2017 Type 2 diabetes mellitus treated with insulin TBI (traumatic brain injury) 05/19/2017 History of atrial fibrillation 05/19/2017 Leg wound, right 05/19/2017 Hepatitis C virus infection 05/19/2017 Medically complex patient 05/19/2017 Depression 05/19/2017 Protuberant abdomen 05/19/2017 Chronic congestive heart failure 04/22/2017 Cardiomegaly 04/22/2017 Resolved Problems Problem Noted Date Diagnosed Date Resolved Date Anticoagulated on Coumadin 05/19/2017 1 Obesity, Class III, BMI 40-4 9.9 (morbid obesity) 05/19/2017 01/14/2021 Type 2 diabetes mellitus mary anne ated without insulin 05/19/2017 05/22/2017 Encounters Date Type Department Care Team Description 09/23/2024 [facility] [place] [phone] Oswaldo Serrano MD Medication Refill 09/15/2024 [facility]ill [facility] [place] [phone] Oswaldo Serrano MD Medication Refill 09/04/2024 Documentation Only [facility] [place] [phone] Oswaldo Serrano MD 09/03/2024 Telephone [facility] #[address] [place] [address] Orlin Urbina APRN, CNP Medication Refill 08/29/2024 2:45 PM COMMERCIAL SHEET METAL FOREMAN Office Visit [facility] [address] [place] [address] Ok Jorge MD Type 2 diabetes mellitus treated with insulin (HCC) (Primary Dx); Insulin dose changed (HCC); Hypoglycemia; Class 3 severe obesity due to excess calories with serious comorbidity and body mass index (BMI) of 40.0 to 44.9 in adult ([facility]) Discharge Disposition: Discharged to home or Selfcare 08/29/2024 Telephone [facility] [address]2 [place] [address] Ok Jorge MD Results 08/29/2024 Telephone [facility] [place] [address] Oswaldo Serrano MD Medication Management 08/29/2024 Travel 08/22/2024 [facility] [place] [address] Ok Jorge MD Medication Refill 08/17/2024 Documentation Only [facility] [place] [address] Oswaldo Serrano MD 08/14/2024 [facility] [place] [address] Ok Jorge MD Medication Refill 08/10/2024 2:00 PM CDT [facility] [place] [address] Connor Yuan APRN, POLICY DIRECTOR HFrEF (heart failure with reduced ejection fraction) ([facility]) (Primary Dx); Thrombus of left atrial appendage; Chronic bacterial endocarditis; Agitation; Microscopic hematuria Discharge Disposition: Discharged to home or Selfcare 08/10/2024 Travel 08/09/2024 Documentation Only [facility] [place] [address] Oswaldo Serrano MD 08/06/2024 [facility]ill [facility] [place] [address] Oswaldo Serrano MD Medication Refill 08/06/[address] [address] Oswaldo Serrano MD Care Management 08/04/2024 [facility]ill [facility] [place] [address] Oswaldo Serrano MD Medication Refill 08/03/2024 Telephone [facility] [address] [place] [address] Oswaldo Serrano MD Advice Only from Last 3 Months Immunizations Immunization Administration Dates Next Due Covid-19, Mrna, Lnp-s, Pf, 3 0 Mcg/0.3 Ml Dose (Pfizer) 01/18/2021,12/23/2020 Influenza Vaccine 07/02/2014 Influenza Vaccine, Quadrivalent, PF 08/10,07/18/2020,06/22/2019,08/19,07/17/2015,07/02/2014 Pneumococcal conjugate PCV20 , polysaccharide DLB310 conjugate, adjuvant, PF 08/26/2022 TDAP Vaccine 06/10/2024 Family History Medical History Relation Name Comments Diabetes Father Heart Attack Father Heart Disease Father Hypertension Father Diabetes Mother Heart Disease Mother Hypertension Mother Relation Name Status Comments Father Alive Mother Social History Tobacco Use Types Packs/Day Years Used Date Smoking Tobacco: Never Smokeless Tobacco: Never Tobacco Cessation:Counseling Given: Not Answered Alcohol Use Standard Drinks/Week Comments No 0 (1 standard drink = 0.6 oz pur e alcohol) [facility] Utilities Answer Date Recorded In the past 12 months has [employer], gas, oil, or water [employer] threatened to shut off services in your [...] often do you attend chur ch or advent services? Never 11/09/2023 Do you belong to any clubs o r organizations such as holiness groups, unions, fraternal or athletic groups, or [...] Score - Questions 1-9 0 11/0 10/2023 [facility] - Occupational Stress Questionnaire Answer Date Recorded [...] place to sleep or slept in a alf (including now)? No 11/09/2023 Education Answer Date [...] Comments Blood Pressure 120/83 08/29/2024 2:39 PM COMMERCIAL SHEET METAL FOREMAN Pulse 96 08/29/2024 2:39 PM COMMERCIAL SHEET METAL FOREMAN Temperature 36.6 ??C (97.8 ??F) 08/29/2024 2:39 PM CS T Respiratory Rate 24 08/29/2024 2:39 PM COMMERCIAL SHEET METAL FOREMAN Oxygen Saturation 100% 08/29/2024 2:39 PM COMMERCIAL SHEET METAL FOREMAN Inhaled Oxygen Concentration - - Weight 120.2 kg (265 lb) 08/29/2024 2:39 PM COMMERCIAL SHEET METAL FOREMAN Height 165.1 cm (5' 5 ) 02/23/2024 4:21 PM CDT Body Mass Index 44.1 02/23/2024 4:21 PM CDT Plan of Treatment Upcoming Encounters Date Type Department Care Team (Late st Contact Info) Description 10/08/2024 2:15 PM COMMERCIAL SHEET METAL FOREMAN Office Visit [facility] #[address] [place] [phone] Orlin Urbina, EPOXY FABRICATION SUPERVISOR, POLICY DIRECTOR #[address] [place] [address] 10/18/2024 2:15 PM COMMERCIAL SHEET METAL FOREMAN Appointment [facility] [address] [place] [phone] Oswaldo Serrano MD #[address] [address] Discharge Disposition: Discharged to home or Selfcare 11/29/2024 2:30 PM COMMERCIAL SHEET METAL FOREMAN Office Visit [facility] #[address] [place] [address] Oswaldo Srerano MD #[address] [facility] [address] [place] [address] 11/30/2024 3:00 PM COMMERCIAL SHEET METAL FOREMAN Office Visit [facility] [place] [facility] [place] [address] Ok Jorge MD #[address] [facility] [address] [place] [address] Health Maintenance Due Date Last Done Comments Diabetes: Foot Exam 1961 HPV/Cotest 12/20/1991 Colonoscopy 2006 Immunochemical Fecal Occult Blood 12/20/2011 Zoster Immunization (1 of 2) 12/20/2011 Respiratory Syncytial Virus (RSV) Immunization (Adult) (1 - Risk 60-74 years 1-dose series) 2021 Diabetes: Eye Exam 02/24/2024 02/23/2023, 07/18/2018 Influenza Immunization (#1) 06/10/202408/10, 07/18/2020, 06/22/2019, Additional history exists SARS-COV-2 Immunization ( season) 2024 01/18/2021, 12/23/2020 Diabetes: Nephropathy Screening 11/09/2024 11/09/2023, 06/21/2023, 09/06/2022, Additional history exists Diabetes: Hemoglobin A1c 01/04/2025 024, 01/04/2024, 09/13/2023, Additional history exists Cologuard 09/23/2025 09/23/2022 Colorectal Cancer Screening 09/23/2025 Postponed from 09/23/2025 (Lower Priority for Now) Cervical Cancer Screening ([facility]) 11/09/2025 Pap Smear 11/09/2025 11/09/2022, 06/06/2017 Mammogram 12/01/2025 12/01/2023, 11/10, 10/27/2021, Additional history exists Td Immunization Every 10 Years (Adults With 1 Tdap) 06/10/2034 06/10/2024 Pneumococcal Immunization (50+ years) Completed 08/26/2022 Pneumococcal Immunization Combined Discontinued 08/26/2022 TdaP Immunization Discontinued 06/10/2024 Hepatitis B Immunization Aged Out No longer eligible based on patient's age to complete this topic Meningococcal Immunization (ACWY) Aged Out No longer eligible based on patient's age to complete this topic Rotavirus Immunization Aged Out No lo nger eligible based on patient's age to complete this topic Procedures Procedure Name Priority Date/Time Associated Diagnosis Comments XR - CHEST 09/29/2024 12:00 AM COMMERCIAL SHEET METAL FOREMAN OCCUPATIONAL THERAPY CONSULT 08/31/2024 12:00 AM COMMERCIAL SHEET METAL FOREMAN PHYSICAL THERAPY CONSULT 08/31/2024 12:00 AM COMMERCIAL SHEET METAL FOREMAN URINALYSIS REFLEX IF INDICATED BY ABNORMAL RESULTS Routine 08/10/2024 4:18 PM CDT Agitation CULTURE, URINE Routine 08/10/2024 4:18 PM CDT Agitation Microscopic hematuria POCT UA AUTOMATED W/O MICRO Routine 08/10/2024 2:38 PM CDT Agitation OCCUPATIONAL THERAPY CONSULT 08/04/2024 12:00 AM CDT PHYSICAL THERAPY CONSULT 08/04/2024 12:00 AM CDT PET GENERIC 07/23/2024 12:00 AM CDT POCT GLYCOSYLATED HEMOGLOBIN Routine 01/04/2024 3:30 PM CDT Type 2 diabetes mellitus treated with insulin (HCC) SHABANA DIAG BILATERAL DIGITAL W CAD Routine 12/01/2023 3:15 PM COMMERCIAL SHEET METAL FOREMAN Abnormal mammogram CMP (COMPREHENSIVE METABOLIC PANEL) Routine 11/09/2023 4:54 PM COMMERCIAL SHEET METAL FOREMAN Elevated LFTs Primary hypertension HM DILATED EYE EXAM 02/23/2023 1 2:00 AM CDT PATHOLOGY CYTOLOGY VEGETABLE HARVEST MACHINE OPERATOR Routine 11/09/2022 3:06 PM COMMERCIAL SHEET METAL FOREMAN Encounter for well woman exam with routine gynecological exam COLOGUARD Routine 09/23/2022 4:00 PM COMMERCIAL SHEET METAL FOREMAN Screening for colon cancer from Last 3 Months or Most Recently Relevant to Health Maintenance Results * XR - CHEST (09/29/2024 12:00 AM COMMERCIAL SHEET METAL FOREMAN) 09/29/2024 us Provider Scan IMG DIAGNOSTIC ORDERABLES Final Result Performing Organization Address City/[facility] de Phone Number SCAN * PHYSICAL THERAPY CONSULT (08/31/2024 12:00 AM COMMERCIAL SHEET METAL FOREMAN) Only the most recent of2 resultswithin the time period is included. 08/31/2024 us Provider Scan GENERIC SCAN ORDERS CONSULT Ayanna l Result Performing Organization Address [facility] de Phone Number SCAN * OCCUPATIONAL THERAPY CONSULT (08/31/2024 12:00 AM COMMERCIAL SHEET METAL FOREMAN) Only the most recent of2 resultswithin the time period is included. 08/31/2024 us Provider Scan GENERIC SCAN ORDERS CONSULT Ayanna l Result Performing Organization Address [facility] de Phone Number SCAN * (ABNORMAL) URINALYSIS REFLEX IF INDICATED BY ABNORMAL RESULTS (08/10/2024 4:18 PM CDT) SPECIFIC GRAVITY 1.010 1.003 - 1.030 08/10/2024 5:09 PM CDT [facility] URINE PH 5.0 5.0 - 9.0 08/10/2024 5:09 PM CDT [facility] WBC ESTERASE Negative Negative 08/10/2024 5:09 PM CDT [facility] NITRITE Negative Negative 08/10/2024 5:09 PM CDT [facility] PROTEIN, RANDOM URINE Negative Negative 08/10/2024 5:09 PM CDT [facility] URINE GLUCOSE, QUAL 1000 mg/dL(A) Negative 08/10/2024 5:09 PM CDT [facility] URINE KETONES Negative Negative 08/10/2024 5:09 PM CDT [facility] UROBILINOGEN Normal Normal mg/dL 08/10/2024 5:09 PM CDT [facility] URINE BLOOD 50 /uL(A) Negative alec/ul 08/10/2024 5:09 PM CDT [facility] URINALYSIS COLOR Yellow 08/10/20 24 5:09 PM CDT [facility] URINALYSIS CLARITY Clear 08/10/2024 5:09 PM CDT [facility] WBC (Urine) Negative Negative, 0-5 /hpf 08/10/2024 5:09 PM CDT [facility] URINE RBC'S 0-2 Negative, 0-2 /hpf 08/10/2024 5:09 PM CDT [facility] EPITHELIAL CELLS Negative /lpf 08/10/20 24 5:09 PM CDT [facility] BACTERIA, URINE Negative Negative /hpf 08/10/2024 5:09 PM CDT [facility] Urine URINE SPECIMEN COLLECTION, CLEAN CATCH / Unknown Non-Phlebotomy Collection / Unknown 08/10/2024 4:18 PM CDT 08/10/2024 4:18 PM CDT us Connor Yuan EPOXY FABRICATION SUPERVISOR, POLICY DIRECTOR URINE ORDERABLES Final Result [facility] #[address] [place] [address] * CULTURE, URINE (08/10/2024 4:18 PM CDT) CULTURE RESULTS Mixed Growth of One or More Distal Urethral Contaminants 08/11/2024 5:32 PM CDT [facility] URINE SPECIMEN COLLECTION, CLEAN CATCH / Unknown Non-Phlebotomy Collection / Unknown 08/10/2024 4:18 PM CDT 08/10/2024 4:18 PM CDT us Connor Yuan APRN, CNP MICROBIOLOGY - G ENERAL ORDERABLES Final Result [facility] [address] [place] [address], [place] * (ABNORMAL) POCT UA AUTOMATED W/O MICRO (08/10/2024 2:38 PM CDT) POC UA SPECIFIC GRAVITY 1.015 URINE PH 5.0 5.0 - 9.0 POC URINE LEUKOCYTES Negative Negative Lucas/uL POC URINE NITRITE Negative Negative POC URINE PROTEIN Negative Negative mg/dL POC URINE GLUCOSE >1000 mg/dL(A) Negative, Norm mg/dL POC URINE KETONE Negative Negative mg/dL POC URINE UROBILINOGEN Norm Norm, 0.2 E.U./dL (mg/dL), 1 E.U./dL (mg/dL) POC URINE BILIRUBIN Negative Negative mg/dL POC URINE BLOOD INSTRUMENT 250 Alec/uL(A) Negative Alec/uL POC URINE COLOR Yellow POC URINE CLARITY Turbid Urine 08/10/2024 2:38 PM CDT Connor Yuan APRN, CNP POINT OF CARE TE STING (MANUAL) Final Result * PET GENERIC (07/23/2024 12:00 AM CDT) 07/23/2024 us Provider Scan IMG PET Final Result Performing Organization Address City/[facility]/ZIP Co de Phone Number SCAN * (ABNORMAL) POCT GLYCOSYLATED HEMOGLOBIN (01/04/2024 3:30 PM CDT) HGB-A1C 8.9(A) 4 - 6 % Blood 01/04/2024 3:30 PM CDT Ok Jorge MD POINT OF CARE TESTING (MANUAL) F inal Result * SHABANA DIAG BILATERAL DIGITAL W CAD (12/01/2023 3:15 PM COMMERCIAL SHEET METAL FOREMAN) Anatomical Region Laterality Modality breast Bilateral Mammography 12/01/2023 2:48 PM COMMERCIAL SHEET METAL FOREMAN Narrative 12/02/2023 1:16 PM COMMERCIAL SHEET METAL FOREMAN - [facility] DIAG BILATERAL DIGITAL W CAD BILATERAL DIGITAL DIAGNOSTIC MAMMOGRAM 3D/2D WITH CAD WITH MEDIOLATERAL MEDIOLATERAL OBLIQUE CRANIOCAUDAL MAGNIFICATION: 12/01/2023 The study was acquired using digital technology and interpreted from soft copy. Current study was also evaluated with ICAD version 7.2. 2D digital mammographic views, as well as 3D digital tomosynthesis were performed in the CC and MLO projections. ?? CLINICAL: Patient returns for a 2 year follow-up left breast calcifications. Due for annual exam. She is mentally challenged and is unable to fully cooperate. Patient has no complaints. No personal history of cancer. No family history of breast cancer. ?? COMPARISONS: Comparison is made to exams dated: ??11/25/2022, 09/14/2022, 01/29/2022, 10/27/2021, and 10/17/2018 [facility]. ?? BREAST TISSUE:There are scattered fibroglandular densities in both breasts. ?? FINDINGS: The examination is limited secondary to the patient's limited ability to cooperate for positioning. ?? A cardiac pacemaker is present on the left. ?? The calcifications in the left breast at the 1 o'clock middle depth are stable. ??These demonstrate 2 year stability and are now considered benign. No other significant masses, calcifications, or other findings are seen in either breast. ??There is no significant change. ?? IMPRESSION: BI-RAD 2 BENIGN The calcifications in the left breast stable and are now considered benign. ?? There is no mammographic evidence of malignancy. A 1 year screening mammogram is recommended. ?? The results and recommendations were discussed with the patient. Electronically signed by: Arsalan Bocanegra M.D. ? ll/:12/01/2023 15:11:27 ?? Commissioner Of Internal Revenue(s): Alicia ??RT Osorio(R)(M), [facility] letter sent: Normal Exam ?? Reading location: [facility] BI-RADS: 2 Benign Procedure Note Arsalan Bocanegra MD - 12/02/2023 - SHABANA DIAG BILATERAL DIGITAL W CAD BILATERAL DIGITAL DIAGNOSTIC MAMMOGRAM 3D/2D WITH CAD WITH MEDIOLATERAL MEDIOLATERAL OBLIQUE CRANIOCAUDAL MAGNIFICATION: 12/01/2023 The study was acquired using digital technology and interpreted from soft copy. Current study was also evaluated with ICAD version 7.2. 2D digital mammographic views, as well as 3D digital tomosynthesis were performed in the CC and MLO projections. CLINICAL: Patient returns for a 2 year follow-up left breast calcifications. Due for annual exam. She is mentally challenged and is unable to fully cooperate. Patient has no complaints. No personal history of cancer. No family history of breast cancer. COMPARISONS: Comparison is made to exams dated: 11/25/2022, 09/14/2022, 01/29/2022, 10/27/2021, and 10/17/2018 [facility]. BREAST TISSUE:There are scattered fibroglandular densities in both breasts. FINDINGS: The examination is limited secondary to the patient's limited ability to cooperate for positioning. A cardiac pacemaker is present on the left. The calcifications in the left breast at the 1 o'clock middle depth are stable. These demonstrate 2 year stability and are now considered benign. No other significant masses, calcifications, or other findings are seen in either breast. There is no significant change. IMPRESSION: BI-RAD 2 BENIGN The calcifications in the left breast stable and are now considered benign. There is no mammographic evidence of malignancy. A 1 year screening mammogram is recommended. The results and recommendations were discussed with the patient. Electronically signed by: Arsalan Bocanegra M.D. ll/:12/01/2023 15:11:27 Commissioner Of Internal Revenue(s): RT Lauri(R)(M), [facility] letter sent: Normal Exam Reading location: [facility] BI-RADS: 2 Benign us Oswaldo Serrano MD IMG MAMMO ORDERABLES Final Result * (ABNORMAL) CMP (COMPREHENSIVE METABOLIC PANEL) (11/09/2023 4:54 PM COMMERCIAL SHEET METAL FOREMAN) SODIUM 140 136 - 145 mmol/L 11/09/2023 6:39 PM [facility] POTASSIUM 4.0 3.5 - 5.1 mmol/L 11/09/2023 6:39 PM [facility] CHLORIDE 103 98 - 107 mmol/L 11/09/2023 6:39 PM [facility] CO2, VENOUS 27 22 - 30 mmol/L 11/09/2023 6:39 PM [facility] ANION GAP 14.0 <18.0 mmol/L 11/09/2023 6:39 PM [facility] GLUCOSE 181(H) 70 - 99 mg/dL 11/09/2023 6:39 PM [facility] BUN 18 10 - 20 mg/dL 11/09/2023 6:39 PM [facility] CREATININE, BLOOD 1.03(H) 0.60 - 1.00 mg/dL 11/09/2023 6:39 PM [facility] BUN/CREATININE RATIO 17 12 - 20 ratio 11/09/2023 6:39 PM [facility] TOTAL PROTEIN 8.1 6.3 - 8.2 g/dL 11/09/2023 6:39 PM [facility] ALBUMIN 4.1 3.5 - 5.0 g/dL 11/09/2023 6:39 PM [facility] A/G RATIO 1.0 1.0 - 2.2 11/09/2023 6:39 PM [facility] CALCIUM 9.2 8.7 - 10.5 mg/dL 11/09/2023 6:39 PM [facility] T BILI 0.6 0.2 - 1.2 mg/dL 11/09/2023 6:39 PM [facility] SGOT (AST) 22 5 - 34 U/L 11/09/2023 6:39 PM [facility] SGPT (ALT) 22 0 - 55 U/L 11/09/2023 6:39 PM [facility] ALKALINE PHOSPHATASE 142 40 - 150 U/L 11/09/2023 6:39 PM COMMERCIAL SHEET METAL FOREMAN [facility] IS THE PATIENT REQUIRED TO BE FASTING? No 11/09/2023 6:39 PM COMMERCIAL SHEET METAL FOREMAN [facility] GFR, ESTIMATED >60 >=60 11/09/2023 6:39 PM COMMERCIAL SHEET METAL FOREMAN [facility] Comment: Creatinine Clearance is the preferred criteria for selecting drug dose adjustments in renally impaired patients. ??The GFR is provided as additional pertinent clinical information. GFR is reported in mL/min/1.73 sq m. Calculation based on the Chronic Kidney Disease Epidemiology Collaboration (CKD- EPI) equation refit without adjustment for race. GFR, EST. >60 >=60 024 6:39 PM COMMERCIAL SHEET METAL FOREMAN [facility] GFR, EST. NONAFRICAN 54(L) >=60 11/09/2023 6:39 PM COMMERCIAL SHEET METAL FOREMAN [facility] Blood Venipuncture / Unknown 11/09/2023 4:54 PM COMMERCIAL SHEET METAL FOREMAN 11/09/2023 6:10 PM COMMERCIAL SHEET METAL FOREMAN Oswaldo Serrano MD CHEMISTRY ORDERABLES Final Result Performing Organization Address City/[facility]/ZIP Co de Phone Number [facility] [address] [place] [address] * HM DILATED EYE EXAM (02/23/2023 12:00 AM CDT) 02/23/2023 us Provider Scan PROCEDURE/MINOR SURGICAL ORDERAB LES Final Result SCAN * PATHOLOGY CYTOLOGY VEGETABLE HARVEST MACHINE OPERATOR (11/09/2022 3:06 PM COMMERCIAL SHEET METAL FOREMAN) SPECIMEN ADEQUACY Satisfactory for evaluation. Endocervical/transf ormation zone component is absent. 11/18/2022 10:47 AM COMMERCIAL SHEET METAL FOREMAN [facility] DESCRIPTIVE DIAGNOSIS NEGATIVE FOR INTRAEPITHELIAL LESIONS OR MALIGNANCY. 11/18/2022 10:47 AM COMMERCIAL SHEET METAL FOREMAN [facility] Reflex if ASCUS? Yes 11/18/2022 10:47 AM COMMERCIAL SHEET METAL FOREMAN [facility] Automated Examination Analysis of this sample has been assisted by an automated imaging and review system ([employer] System, [employer], [place], [place]). This case is further evaluated and finalized by a credit card specialist and/or pathologist. 11/18/2022 10:47 AM COMMERCIAL SHEET METAL FOREMAN [facility] Disclaimer The PAP smear is a screening test designed to detect cancerous or precancerous cells of the uterine cervix. It is one of the best means available for detection of cervical cancer but still carries an inherent false-negative rate. The consequences of a false-negative PAP result can be minimized by adhering to current screening guidelines. The following are general guidelines recommended by the ACS, ASCP, ASCCP, and ACOG: PAP testing is recommended every three years for women 21-29, Co-Testing , a PAP test in conjunction with an HPV (Human Papillomavirus) test for women ages 30-65, and no PAP or HPV testing for women under the age of 21 or older than 65 unless clinically indicated. 11/18/2022 10:47 AM COMMERCIAL SHEET METAL FOREMAN [facility] Other (Cervix/Endocerv ix) Non-Phlebotomy Collection / Unknown 11/09/2022 3:06 PM COMMERCIAL SHEET METAL FOREMAN 11/09/2022 3:06 PM COMMERCIAL SHEET METAL FOREMAN us Jamison Hernández MD PATHOLOGY/CYTOLOGY ORDERABLES Final Result Performing Organization Address City/State/[facility] Co de Phone Number [facility] [address] [place] [address], * COLOGUARD (09/23/2022 4:00 PM COMMERCIAL SHEET METAL FOREMAN) Cologuard Negative Negative [facility] Comment: NEGATIVE TEST RESULT. A negative Cologuard result indicates a low likelihood that a colorectal cancer (CRC) or advanced adenoma (adenomatous polyps with more advanced pre-malignant features) ??is present. The chance that a person with a negative Cologuard test has a colorectal cancer is less than 1 in 1500 (negative predictive value >99.9%) or has an ??advanced adenoma is less than ?? 5.3% (negative predictive value 94.7%). These data are based on a prospective cross-sectional study of 10,000 individuals at average risk for colorectal cancer who were screened with both Cologuard and colonoscopy. (Deandra Brooks, N Engl J Med 2014;370(14):6354-9544) The normal value (reference range) for this assay is negative. COLOGUARD RE-SCREENING RECOMMENDATION: Periodic colorectal cancer screening is an important part of preventive healthcare for asymptomatic individuals at average risk for colorectal cancer. ??Following a negative Cologuard result, the [place] [employer] Society and U.S. Multi-Society Task Force screening guidelines recommend a Cologuard re-screening interval of 3 years. References: [place] [employer] Guideline for Colorectal Cancer Screening: https://www.cancer.org/cancer/uqbyy-rgbijr-jbuvfr/ojcmhjcsh-bnyvorzjy-nbygpoi/ acs-recommendations.html.; Chavez DK, Rob VASQUEZ, Elroy TorresK, Colorectal Cancer Screening: Recommendations for Physicians and Patients from the U.S. Multi-Society Task Force on Colorectal Cancer Screening , Am J Gastroenterology 2017; 112:3014-1480. TEST DESCRIPTION: Composite algorithmic analysis of stool DNA-biomarkers with hemoglobin immunoassay. ?? Quantitative values of individual biomarkers are not reportable and are not associated with individual biomarker result reference ranges. Cologuard is intended for colorectal cancer screening of adults of either sex, 45 years or older, who are at average-risk for colorectal cancer (CRC). Cologuard has been approved for use by the U.S. FDA. The performance of Cologuard was established in a cross sectional study of average-risk adults aged 50-84. Cologuard performance in patients ages 45 to 49 years was estimated by sub-group analysis of near-age groups. Colonoscopies performed for a positive result may find as the most clinically significant lesion: colorectal cancer [4.0%], advanced adenoma (including sessile serrated polyps greater than or equal to 1cm diameter) [20%] or non- advanced adenoma [31%]; or no colorectal neoplasia [45%]. These estimates are derived from a prospective cross-sectional screening study of 10,000 individuals at average risk for colorectal cancer who were screened with both Cologuard and colonoscopy. (Imperiale T. et al, N Engl J Med 2014;370(14):4910-3092.) Cologuard may produce a false negative or false positive result (no colorectal cancer or precancerous polyp present at colonoscopy follow up). A negative Cologuard test result does not guarantee the absence of CRC or advanced adenoma (pre-cancer). The current Cologuard screening interval is every 3 years. ([place] [employer] Society and U.S. Multi-Society Task Force). Cologuard performance data in a 10,000 patient pivotal study using colonoscopy as the reference method can be accessed at the following location: www.Insmed.IN-PIPE TECHNOLOGY/results. Additional description of the Cologuard test process, warnings and precautions can be found at www.GigParkoguard.com. Stool 09/23/2022 4:00 PM COMMERCIAL SHEET METAL FOREMAN 09/25/2022 10:38 AM COMMERCIAL SHEET METAL FOREMAN Connor Yuan APRN, CNP BODY FLUIDS & ST OOLS ORDERABLES Final Result [employer], [facility] [address] [place] [address], [employer] [address] [place] [address] from Last 3 Months or Most Recently Relevant to Health Maintenance Insurance MEDICARE C [place] Advance Directives Documents on File Type Date Recorded Patient Packing And Final Assembly Supervisor Expl anation Power of Tobacco Curer for Health Care 05/10/2018 9:03 AM * Full Code (Latest Code Status on File) Date Activated Date Inactivated Comments 05/24/2017 11:54 AM 03/29/2020 10:53 PM Care Teams Strip Winder Relationship Specialty Start Date End Date Oswaldo Serrano MD #[address] [facility] [address] [place] [address] PCP - General Family Medicine 05/19/17 Angel Crowe DPM #[address] [facility] [address] [place] [address] Consulting Physician Podiatry 06/16/17 Mora Fritz [place] Behavioral Health Navigator 06/15/18 Ok Jorge MD #[address] [facility] [address] [place] [address] Consulting Physician Endocrinology 05/12/22 Orlin Urbina, EPOXY FABRICATION SUPERVISOR, POLICY DIRECTOR #2 [place] [address] Nurse Practitioner Advanced Practice Nurse 11/09/22
--- OUTSIDE RECORDS SUMMARY | 2024-10-07 00:19 | XMS_ITS | Encounter Summary ---
Author Organization [facility] Address [address] [place] [address] Phone Care Team Providers Care Director Of Brand Marketing Name Role Phone Oswaldo Serrano MD Primary Care Provider [phone] Angel Crowe DPCiara Unavailable [phone] Mora Fritz Unavailable Unavailable Ok Jorge MD Unavailable Orlin Urbina APRN, RACEBOOK WRITER Unavailable [phone] Reason for Visit * Reason Comments Medication Refill Encounter Details Date Type Department Care Team (Late st Contact Info) Description 09/15/2024 Refill [facility] [place] [address] [place] [address] Oswaldo Serrano MD #[address] [address] Medication Refill Social History Tobacco Use Types Packs/Day Years Used Date Smoking Tobacco: Never Smokeless Tobacco: Never Alcohol Use Standard Drinks/Week Comments No 0 (1 standard drink = 0.6 oz pur e alcohol) [facility] Utilities Answer Date Recorded In the [...] often do you attend chur ch or jehovah's witness services? Never 11/09/2023 Do you belong to any clubs o r organizations such as jewish groups, unions, fraternal or athletic groups, or [...] Score - Questions 1-9 0 11/0 10/2023 [facility] of Occupat ional Health - Occupational Stress [...] place to sleep or slept in a usp (including now)? No 11/09/2023 Education Answer Date [...] encounter Miscellaneous Notes * Telephone Encounter - Mica Morales RN - 09/17/2024 8:58 AM CST Medication(s) refilled and signed per [facility] Chronic Medication Refill Standing Order for Pediatricand Adult Patients. Requested Prescriptions Pending Prescriptions Disp Refills docusate sodium (COLACE) 100 MG Capsule [Pharmacy Med Name: DOCUSATE SOD 100MG CAPSULES] 60 Capsule2 Sig: TAKE 1 CAPSULE BY MOUTH TWICE DAILY Laxatives Protocol Passed - 09/17/2024 8:58 AM Passed - Visit with relevant provider in past 12 months or upcoming 90 days Recent Visits Date Type Provider Dept 08/10/24 Office Visit Connor Yuan APRN, RACEBOOK WRITER [facility] 03/08/24 Telemedicine Oswaldo Serrano MD [facility] 02/23/24 Office Visit Oswaldo Serrano MD [facility] 11/09/23 Office Visit Oswaldo Serrano MD [facility] Showing recent visits within past 365 days and meeting all other requirements Future Appointments Date Type Provider Dept 11/29/24 Appointment Oswaldo Serrano MD [facility] Showing future appointments within next 90 days and meeting all other requirements Passed - Up to date with colon cancer screening Health Maintenance LOPMENT SCIENTIST documented in this encounter Plan of Treatment Upcoming Encounters Date Type Department Care Team (Late st Contact Info) Description 10/08/2024 2:15 PM DEVELOPMENT SCIENTIST Office Visit [facility] #2 [place] [address] Orlin Urbina APRN, RACEBOOK WRITER #[address] [place] [address] 10/18/2024 2:15 PM DEVELOPMENT SCIENTIST Appointment [facility] 1 [place] [address] Oswaldo Serrano MD #[address] [address] Discharge Disposition: Discharged to home or Selfcare 11/29/2024 2:30 PM DEVELOPMENT SCIENTIST Office Visit [facility] [place] [address] [place] [address] Oswaldo Serrano MD #[address] [address] 11/30/2024 3:00 PM DEVELOPMENT SCIENTIST Office Visit [facility] [place] #[address] [place] [address] Ok Jorge MD #[address] [address] documented as of this encounter Visit Diagnoses Not on filedocumented in this encounter Additional Health Concerns Assessment Noted Time PHQ-9 Depression Total Score: 0 08/10/20 24 1:59 PM CDT documented as of this encounter Care Teams Director Of Brand Marketing Relationship Specialty Start Date End Date Oswaldo Serrano MD #[address] [address] PCP - General Family Medicine 05/19/17 Angel Crowe DPM #[address] [address] Consulting Physician Podiatry 06/16/17 Mora Fritz [place] Behavioral Health Navigator 06/15/18 Ok Jorge MD #[address] [address] Consulting Physician Endocrinology 05/12/22 Orlin Urbina, BARREL LATHE OPERATOR, RACEBOOK WRITER #2 [place] [address] Nurse Practitioner Advanced Practice Nurse 11/09/22 documented as of this encounter
--- OUTSIDE RECORDS SUMMARY | 2024-10-07 00:19 | XMS_ITS | Encounter Summary ---
Author Organization [employer] Care Team Providers Care Wire Inserter Name Role Phone Oswaldo Serrano MD Primary Care Provider [phone] Angel Crowe DPCiara Unavailable [phone] Mora Fritz Unavailable Unavailable Ok Jorge MD Unavailable Orlin Urbina APRN, ANALYTICAL DATA MINER Unavailable [phone] Encounter Details Date Type Department Care Team (Latest Contact Info) Description 08/29/2024 Travel Social History Tobacco Use Types Packs/Day Years Used Date Smoking Tobacco: Never Smokeless Tobacco: Never Alcohol Use Standard Drinks/Week Comments No 0 (1 standard drink = 0.6 oz pur e alcohol) [facility] Utilities Answer Date Recorded In the past 12 months has [employer], gas, oil, or water company threatened to [...] often do you attend chur ch or shinto services? Never 11/09/2023 Do you belong to any clubs o r organizations such as hoahaoism groups, unions, fraternal or athletic groups, or [...] - Questions 1-9 0 11/0 10/2023 [facility] of Occupat ional Health - Occupational Stress [...] place to sleep or slept in a detention (including now)? No 11/09/2023 Education Answer Date [...] on file documented as of this encounter Plan of Treatment Upcoming Encounters Date Type Department Care Team (Late st Contact Info) Description 10/08/2024 2:15 PM INVESTMENT BANKER Office Visit [facility]Y #2 [place] [address] Orlin Urbina APRN, ANALYTICAL DATA MINER #2 [place] [address] 10/18/2024 2:15 PM INVESTMENT BANKER Appointment [facility] 1 [place] [address] Oswaldo Serrano MD #[address] [address] Discharge Disposition: Discharged to home or Selfcare 11/29/2024 2:30 PM INVESTMENT BANKER Office Visit [facility] - [facility] #2 [place] [address] Oswaldo Serrano MD #[address] [address] 11/30/2024 3:00 PM INVESTMENT BANKER Office Visit [facility] - Endocrin[facility] #2 [place] [address] Ok Jorge MD #[address] [place] [address] documented as of this encounter Visit Diagnoses Not on filedocumented in this encounter Additional Health Concerns Assessment Noted Time PHQ-9 Depression Total Score: 0 08/10/20 24 1:59 PM CDT documented as of this encounter Care Teams Wire Inserter Relationship Specialty Start Date End Date Oswaldo Serrano MD #[address] [address] PCP - General Family Medicine 05/19/17 Angel Crowe DPM #[address] [address] Consulting Physician Podiatry 06/16/17 Mora Fritz [place] Behavioral Health Navigator 06/15/18 Ok Jorge MD #[address] [address] Consulting Physician Endocrinology 05/12/22 Orlin Urbina APRN, ANALYTICAL DATA MINER #2 [place] [address] Nurse Practitioner Advanced Practice Nurse 11/09/22 documented as of this encounter
--- OUTSIDE RECORDS SUMMARY | 2024-10-07 00:19 | XMS_ITS | Encounter Summary ---
Author Organization [facility] Address [address] [place] [address] Phone Care Team Providers Care Talend Etl Developer Name Role Phone Oswaldo Serrano MD Primary Care Provider [phone] Angel Crowe DPM Unavailable [phone] Mora Fritz Unavailable Unavailable Ok Jorge MD Unavailable Orlin Urbina APRN, HONING MACHINE OPERATOR TOOL Unavailable [phone] Encounter Details Date Type Department Care Team (Late st Contact Info) Description 08/17/2024 Documentation Only [facility] - [place] #[address] [place] [address] Oswaldo Serrano MD #[address] [address] Social History Tobacco Use Types Packs/Day Years Used Date Smoking Tobacco: Never Smokeless Tobacco: Never Alcohol Use Standard Drinks/Week Comments No 0 (1 standard drink = 0.6 oz pur e alcohol) [facility] Utilities Answer Date Recorded In the past [...] often do you attend chur ch or jain services? Never 11/09/2023 Do you belong to any clubs o r organizations such as nondenominational groups, unions, fraternal or athletic groups, or [...] Score - Questions 1-9 0 11/0 10/2023 [facility] of Occupat ional Health - Occupational Stress [...] Progress Notes * Tina Cortes CMA - 08/17/2024 6:51 AM CST Fax received from: Brent FOOTE Requested Information: Home Health Orders Fax placed in PCP folder for review/signature. DBIRTH EDUCATOR * Tina Cortes CMA - 08/17/2024 6:51 AM CST Form completed and faxed back successfully to [facility] Fax #: [phone] DBIRTH EDUCATOR documented in this encounter Plan of Treatment Upcoming Encounters Date Type Department Care Team (Late st Contact Info) Description 10/08/2024 2:15 PM CHILDBIRTH EDUCATOR Office Visit [facility] UROLOGY #2 [place] [address] Orlin Urbina HIGH SCHOOL HOME ECONOMICS TEACHER, HONING MACHINE OPERATOR TOOL #[address] [place] [address] 10/18/2024 2:15 PM CHILDBIRTH EDUCATOR [facility] 1 [place] [address] Oswaldo Serrano MD #2 [facility] [address] [place] [address] Discharge Disposition: Discharged to home or Selfcare 11/29/2024 2:30 PM CHILDBIRTH EDUCATOR Office Visit [facility] - [place] #2 [place] [address] Oswaldo Serrano MD #2 [facility] [address] [place] [address] 11/30/2024 3:00 PM CHILDBIRTH EDUCATOR Office Visit [facility] - [place] #2 [place] [address] Ok Jorge MD #2 [facility] [address] [place] [address] documented as of this encounter Visit Diagnoses Not on filedocumented in this encounter Additional Health Concerns Assessment Noted Time PHQ-9 Depression Total Score: 0 08/10/20 24 1:59 PM CDT documented as of this encounter Care Teams Talend Etl Developer Relationship Specialty Start Date End Date Oswaldo Serrano MD #[address] [address] PCP - General Family Medicine 05/19/17 Angel Crowe DPM #[address] [address] Consulting Physician Podiatry 06/16/17 Mora Fritz Behavioral Health Navigator 06/15/18 Ok Jorge MD #[address] [phone] Consulting Physician Endocrinology 05/12/22 Orlin Urbina APRN, HONING MACHINE OPERATOR TOOL #[address] [place] [address] Nurse Practitioner Advanced Practice Nurse 11/09/22 documented as of this encounter
--- OUTSIDE RECORDS SUMMARY | 2024-10-07 00:19 | XMS_ITS | Encounter Summary ---
Author Organization [facility] Address [address] [place] [address] Phone Care Team Providers Care Road Conductor Name Role Phone Oswaldo Serrano MD Primary Care Provider [phone] Angel Crowe DPM Unavailable [phone] Mora Fritz Unavailable Unavailable Ok Jorge MD Unavailable Orlin Urbina APRN, FARM EQUIPMENT SERVICE TECHNICIAN Unavailable [phone] Reason for Visit * Reason Onset Date Comments Medication Refill 08/22/2024 Encounter Details Date Type Department Care Team (Late st Contact Info) Description 08/22/2024 Refill [facility] [place] #2 [place] [address] Ok Jorge MD #[address] [address] Medication Refill Social History Tobacco Use Types Packs/Day Years Used Date Smoking Tobacco: Never Smokeless Tobacco: Never Alcohol Use Standard Drinks/Week Comments No 0 (1 standard drink = 0.6 oz pur e alcohol) [facility] Utilities Answer Date Recorded In the [...] often do you attend chur ch or orthodox services? Never 11/09/2023 Do you belong to any clubs o r organizations such as baptist groups, unions, fraternal or athletic groups, or [...] - Questions 1-9 0 11/0 10/2023 [facility] of Occupat ional Health - Occupational Stress [...] place to sleep or slept in a care home (including now)? No 11/09/2023 Education Answer Date [...] encounter Miscellaneous Notes * Telephone Encounter - Vira Cordova RMA - 08/22/2024 2:39 PM CST Requested Prescriptions Pending Prescriptions Disp Refills Continuous Glucose Sensor (Dexcom G7 Sensor) Misc 9 Each 1 Si Each by Does not apply route every 10 days. Change sensor every 10 days. atient stated that the refills for the sensors [facility] to [facility] MACHINIST documented in this encounter Plan of Treatment Upcoming Encounters Date Type Department Care Team (Late st Contact Info) Description 10/08/2024 2:15 PM CNC MACHINIST Office Visit [facility] UROLOGY #2 [place] [address] Orlin Urbina APRN, FARM EQUIPMENT SERVICE TECHNICIAN #2 [place] [address] 10/18/2024 2:15 PM CNC MACHINIST Appointment [facility] Mamm[facility] 1 [place] [address] Oswaldo Serrano MD #[address] [address] Discharge Disposition: Discharged to home or Selfcare 11/29/2024 2:30 PM CNC MACHINIST Office Visit [facility] - [place] #2 [place] [address] Oswaldo Serrano MD #[address] [address] 11/30/2024 3:00 PM CNC MACHINIST Office Visit [facility] - [place] #2 [place] [address] Ok Jorge MD #[address] [address] documented as of this encounter Visit Diagnoses Not on filedocumented in this encounter Additional Health Concerns Assessment Noted Time PHQ-9 Depression Total Score: 0 08/10/20 24 1:59 PM CDT documented as of this encounter Care Teams Road Conductor Relationship Specialty Start Date End Date Oswaldo Serrano MD #[address] [address] PCP - General Family Medicine 05/19/17 Angel Crowe DPM #[address] [address] Consulting Physician Podiatry 06/16/17 Mora Fritz [place] Behavioral Health Navigator 06/15/18 Ok Jorge MD #[address] [address] Consulting Physician Endocrinology 05/12/22 Orlin Urbina APRN, FARM EQUIPMENT SERVICE TECHNICIAN #[address] [place] [address] Nurse Practitioner Advanced Practice Nurse 11/09/22 documented as of this encounter
--- OUTSIDE RECORDS SUMMARY | 2024-10-07 00:19 | XMS_ITS | Encounter Summary ---
Author Organization [facility] Address [address] [place] [address] Phone Care Team Providers Care Wet Process Head Miller Name Role Phone Oswaldo Serrano MD Primary Care Provider [phone] Angel Crowe DPM Unavailable [phone] Mora Fritz Unavailable Unavailable Ok Jorge MD Unavailable Orlin Urbina APRN, DOOR MANAGER Unavailable [phone] Reason for Visit * Reason Onset Date Comments Results 08/29/2024 Encounter Details Date Type Department Care Team (Late st Contact Info) Description 08/29/2024 Telephone [facility] - Endocrinology - [place] [address] [place] [address] Ok Jorge MD #[address] [address] Results Social History Tobacco Use Types Packs/Day Years Used Date Smoking Tobacco: Never Smokeless Tobacco: Never Alcohol Use Standard Drinks/Week Comments No 0 (1 standard drink = 0.6 oz pur e alcohol) [facility] Utilities Answer Date Recorded In the past [...] often do you attend chur ch or anabaptism services? Never 11/09/2023 Do you belong to any clubs o r organizations such as shinto groups, unions, fraternal or athletic groups, or [...] Score - Questions 1-9 0 11/0 10/2023 [facility] [place] of Occupat ional Health - Occupational Stress [...] encounter Miscellaneous Notes * Telephone Encounter - Ok Jorge MD - 08/29/2024 9:25 PM CST Please delete Hb A1c order. ER STAMPING MACHINE OPERATOR documented in this encounter Plan of Treatment Upcoming Encounters Date Type Department Care Team (Late st Contact Info) Description 10/08/2024 2:15 PM LETTER STAMPING MACHINE OPERATOR Office Visit [facility] #2 [place] [address] Orlin Urbina, CASE TECHNICIAN, DOOR MANAGER #2 [place] [address] 10/18/2024 2:15 PM LETTER STAMPING MACHINE OPERATOR Appointment [facility] Mammography 1 [place] [address] Oswaldo Serrano MD #[address] [address] Discharge Disposition: Discharged to home or Selfcare 11/29/2024 2:30 PM LETTER STAMPING MACHINE OPERATOR [facility] Family Medicine [facility] #2 [place] [address] Oswaldo Serrano MD #[address] [address] 11/30/2024 3:00 PM LETTER STAMPING MACHINE OPERATOR Office Visit [facility] - Endocrinology - [place] #2 [place] [address] Ok Jorge MD #[address] [address] documented as of this encounter Visit Diagnoses Not on filedocumented in this encounter Additional Health Concerns Assessment Noted Time PHQ-9 Depression Total Score: 0 08/10/20 24 1:59 PM CDT documented as of this encounter Care Teams Wet Process Head Miller Relationship Specialty Start Date End Date Oswaldo Srerano MD #[address] [address] PCP - General Family Medicine 05/19/17 Angel Crowe DPM #[address] [address] Consulting Physician Podiatry 06/16/17 Mora Fritz [place] Behavioral Health Navigator 06/15/18 Ok Jorge MD #[address] [address] Consulting Physician Endocrinology 05/12/22 Orlin Urbina APRN, DOOR MANAGER #2 [place] [address] Nurse Practitioner Advanced Practice Nurse 11/09/22 documented as of this encounter
--- OUTSIDE RECORDS SUMMARY | 2024-10-07 00:19 | XMS_ITS | Encounter Summary ---
Author Organization [facility] Address [address] [place] [address] Phone Care Team Providers Care Acoustic Warfare Analyst Name Role Phone Oswaldo Serrano MD Primary Care Provider [phone] Angel Crowe DPCiara Unavailable Mora Fritz Unavailable Unavailable Ok Jorge MD Unavailable Orlin Urbina APRN, MASTER RIGGER Unavailable [phone] Reason for Visit * Reason Comments Medication Refill Encounter Details Date Type Department Care Team (Late st Contact Info) Description 09/23/2024 [facility]ill [facility] - Family Medicine - [place] [address] [place] [address] Oswaldo Serrano MD #[address] [address] Medication Refill Social History Tobacco Use Types Packs/Day Years Used Date Smoking Tobacco: Never Smokeless Tobacco: Never Alcohol Use Standard Drinks/Week Comments No 0 (1 standard drink = 0.6 oz pur e alcohol) [facility] Utilities Answer Date Recorded In the [...] often do you attend chur ch or mormonism services? Never 11/09/2023 Do you belong to any clubs o r organizations such as synagogue groups, unions, fraternal or athletic groups, or [...] Score - Questions 1-9 0 11/0 10/2023 [facility] [place] of Occupat ional Health - Occupational Stress [...] place to sleep or slept in a long term (including now)? No 11/09/2023 Education Answer Date [...] encounter Miscellaneous Notes * Telephone Encounter - Maria Luisa Gallegos RN - 09/23/2024 1:03 PM BULK SEALER Medication(s) refilled and signed per [facility] Chronic Medication Refill Standing Order for Pediatricand Adult Patients. Requested Prescriptions Pending Prescriptions Disp Refills levothyroxine (SYNTHROID) 75 MCG Tablet [Pharmacy Med Name: LEVOTHYROXINE 0.075MG (75MCG) TABS] 90 Tablet 3 Sig: Take 1 Tablet by mouth every morning. Thyroid Hormones Protocol Passed - 09/23/2024 1:03 PM Passed - Visit with relevant provider in past 12 months or upcoming 90 days Recent Visits Date Type Provider Dept 08/10/24 Office Visit Connor Yuan, DRIVER GUIDE, MASTER RIGGER [facility] 03/08/24 Telemedicine Oswaldo Serrano MD [facility] 02/23/24 Office Visit Oswaldo Serrano MD [facility] 11/09/23 Office Visit Oswaldo Serrano MD [facility] Showing recent visits within past 365 days and meeting all other requirements Future Appointments Date Type Provider Dept 11/29/24 Appointment Oswaldo Serrano MD [facility] Showing future appointments within next 90 days and meeting all other requirements Passed - Normal TSH in past 12 months TSH Date Value Ref Range Status 11/09/2023 1.902 0.300 - 5.000 mIU/L Final SEALER documented in this encounter Plan of Treatment Upcoming Encounters Date Type Department Care Team (Late st Contact Info) Description 10/08/2024 2:15 PM BULK SEALER Office Visit [facility] PHYSICIAN [facility] UROLOGY #2 [place] [address] Orlin Urbina APRN, MASTER RIGGER #2 [place] [address] 10/18/2024 2:15 PM BULK SEALER [facility] 1 [place] [address] Oswaldo Serrano MD #[address] [address] Discharge Disposition: Discharged to home or Selfcare 11/29/2024 2:30 PM BULK SEALER [facility] - Family Medicine - [place] #[address] [place] [address] Oswaldo Serrano MD #2 [address] [facility] [address] [place] [address] 11/30/2024 3:00 PM BULK SEALER Office Visit [facility] - Endocrinology - [place] #2 [place] [address] Ok Jorge MD #[address] [place] [address] documented as of this encounter Visit Diagnoses Not on filedocumented in this encounter Additional Health Concerns Assessment Noted Time PHQ-9 Depression Total Score: 0 08/10/20 24 1:59 PM CDT documented as of this encounter Care Teams Acoustic Warfare Analyst Relationship Specialty Start Date End Date Oswaldo Serrano MD #[address] [address] PCP - General Family Medicine 05/19/17 Angel Crowe DPM [address] [address] Consulting Physician Podiatry 06/16/17 Mora Fritz [place] Behavioral Health Navigator 06/15/18 Ok Jorge MD [address] [address] Consulting Physician Endocrinology 05/12/22 Orlin Urbina APRN, MASTER RIGGER #[address] [place] [address] Nurse Practitioner Advanced Practice Nurse 11/09/22 documented as of this encounter
--- OUTSIDE RECORDS SUMMARY | 2024-10-07 00:19 | XMS_ITS | Encounter Summary ---
Author Organization [facility] Address [address] [place] [address] Phone Care Team Providers Care Corporate Communications Associate Name Role Phone Oswaldo Serrano MD Primary Care Provider [phone] Angel Crowe DPM Unavailable [phone] Mora Fritz Unavailable Unavailable Ok Jorge MD Unavailable Orlin Urbina APRN, BRIDGE IRONWORKER Unavailable [phone] Reason for Visit * Reason Onset Date Comments Medication Refill 08/14/2024 Encounter Details Date Type Department Care Team (Late st Contact Info) Description 08/14/2024 [facility]ill [facility] - Endocr[facility]ology - [place] [address] [place] [address] Ok Jorge MD #[address] [address] Medication Refill Social History Tobacco Use Types Packs/Day Years Used Date Smoking Tobacco: Never Smokeless Tobacco: Never Alcohol Use Standard Drinks/Week Comments No 0 (1 standard drink = 0.6 oz pur e alcohol) [facility] Utilities Answer Date Recorded In [...] often do you attend chur ch or roman catholic services? Never 11/09/2023 Do you belong to any clubs o r organizations such as jainism groups, unions, fraternal or athletic groups, or [...] Score - Questions 1-9 0 11/0 10/2023 [facility] of Occupat ional Health - Occupational Stress [...] money to buy more. Often true 11/09/19 Within the past 12 months, t he [...] place to sleep or slept in a longterm (including now)? No 11/09/2023 Education Answer Date [...] Telephone Encounter - Vira Cordova RMA - 08/14/2024 10:04 AM FIRE BATTALION CHIEF Pharmacy requesting refill of: Requested Prescriptions Pending Prescriptions Disp Refills Continuous Glucose Sensor (Dexcom G7 Sensor) Misc 9 Each 1 Si Each by Does not apply route every 10 days. Change sensor every 10 days. Patients last OV with Endo: 01-04-24 Next Office Visit with Endo: 08-29-24 BATTALION CHIEF documented in this encounter Plan of Treatment Upcoming Encounters Date Type Department Care Team (Late st Contact Info) Description 10/08/2024 2:15 PM FIRE BATTALION CHIEF Office Visit [facility] UR[facility]Y #2 [place] [address] Orlin Urbina DOG DAYCARE PROVIDER, BRIDGE IRONWORKER #2 [place] [address] 10/18/2024 2:15 PM FIRE BATTALION CHIEF [facility] 1 [place] [address] Oswaldo Serrano MD #[address] [place] [address] Discharge Disposition: Discharged to home or Selfcare 11/29/2024 2:30 PM FIRE BATTALION CHIEF [facility] - Family Medicine - [place] #2 [facility] [address] Oswaldo Serrano MD #[address] [address] 11/30/2024 3:00 PM FIRE BATTALION CHIEF Office [facility] - Endocrinology - [place] #2 [place] [address] Ok Jorge MD #[address] [place] [address] documented as of this encounter Visit Diagnoses Not on filedocumented in this encounter Additional Health Concerns Assessment Noted Time PHQ-9 Depression Total Score: 0 08/10/20 24 1:59 PM CDT documented as of this encounter Care Teams Corporate Communications Associate Relationship Specialty Start Date End Date Oswaldo Srerano MD #[address] [address] PCP - General Family Medicine 05/19/17 Angel Crowe DPM #2 [address] [facility] [address] [place] [address] Consulting Physician Podiatry 06/16/17 Mora Fritz [place] Behavioral Health Navigator 06/15/18 Ok Jorge MD #2 [facility] [address] [place] [address] Consulting Physician Endocrinology 05/12/22 Orlin Urbina APRN, BRIDGE IRONWORKER #2 [place] [address] Nurse Practitioner Advanced Practice Nurse 11/09/22 documented as of this encounter
--- OUTSIDE RECORDS SUMMARY | 2024-10-07 00:20 | XMS_ITS | Encounter Summary ---
Author Organization [facility] Address [address] [place] [address] Phone Care Team Providers Care Automotive Project Engineer Name Role Phone Oswaldo Serrano MD Primary Care Provider [phone] Angel Crowe DPCiara Unavailable Mora Fritz Unavailable Unavailable Ok Jorge MD Unavailable Orlin Urbina APRN, MILK CONDENSER Unavailable Reason for Visit * Reason Onset Date Comments Care Management 08/06/2024 Encounter Details Date Type Department Care Team (Late st Contact Info) Description 08/06/2024 Telephone [facility] [address] [place] [address] Oswaldo Serrano MD #[address] [address] Care Management Social History Tobacco Use Types Packs/Day Years Used Date Smoking Tobacco: Never Smokeless Tobacco: Never Alcohol Use Standard Drinks/Week Comments No 0 (1 standard drink = 0.6 oz pur e alcohol) [facility] Utilities Answer Date Recorded In the [...] often do you attend chur ch or latter day services? Never 11/09/2023 Do you belong to any clubs o r organizations such as samaritan groups, unions, fraternal or athletic groups, or [...] Recorded Total Score - Questions 1-9 0 07/12 [facility] of Occupat ional Health - Occupational Stress [...] encounter Miscellaneous Notes * Telephone Encounter - Oswaldo Serrano MD - 08/07/2024 1:09 PM CDT Thanks for the update. She will be seeing Connor later this week. * Telephone Encounter - Maria Luisa Gallegos RN - 08/06/2024 10:14 AM CDT This encounter message was brought to this RN by [employer]. Message relayed to this RN: [facility] saw pt 08/04 - BG 287 and then thirty minutes later was 379. Patient denied any signs or symptoms of hyperglycemia, stating she felt fine. Insulin was due at noon that day, but patient refused and also refused ER. Per note from call center receptionist, patient was told to go to ER if glucose continued to be elevated or if she developed any new symptoms. This RN told RMA, who relayed original message, that a message would be sent to PCP for any additional recommendations. * Telephone Encounter - Hailey Hilario RN - 08/06/2024 9:48 AM CDT S: Becka, nurse from [facility] is calling in B: Per Becka, started home health service for patient on 08/04/24. Patient is getting nursing visit,physical therapy and occupational therapy For nursing visit, patient is to be seen 1 time a week for 1 week, 2 times a week for 1 week and 1 time a week for 4 weeks. Reports her blood sugar at the time of visit 08/04/24 was 287 mg/dL and 379 mg/dl. Per caller, patient was insulin due at 1:00 pm. Reports no signs and symptoms at the time. Advised patient to go to the emergency room if it continues to be high or with new symptoms. Transferred caller to nurse backline per [facility] nurse Policy documented in this encounter Plan of Treatment Upcoming Encounters Date Type Department Care Team (Late st Contact Info) Description 10/08/2024 2:15 PM SYSTEM ARCHITECT Office Visit [facility] UROLOGY #2 [place] [address] Orlin Urbina, RANCH COOK, MILK CONDENSER #2 [place] [address] 10/18/2024 2:15 PM SYSTEM ARCHITECT Appointment [facility] Mammography 1 [place] [address] Oswaldo Serrano MD #[address] [address] Discharge Disposition: Discharged to home or Selfcare 11/29/2024 2:30 PM SYSTEM ARCHITECT Office Visit [facility] - Family Medicine [facility] #[address] [place] [address] Oswaldo Serrano MD #[address] [address] 11/30/2024 3:00 PM SYSTEM ARCHITECT Office Visit [facility] - Endocrinology [facility] #2 [place] [address] Ok Jorge MD #[address] [address] documented as of this encounter Visit Diagnoses Not on filedocumented in this encounter Additional Health Concerns Assessment Noted Time PHQ-9 Depression Total Score: 0 08/09/20 23 2:56 PM CDT documented as of this encounter Care Teams Automotive Project Engineer Relationship Specialty Start Date End Date Oswaldo Serrano MD #[address] [address] PCP - General Family Medicine 05/19/17 Angel Crowe DPM #[address] [address] Consulting Physician Podiatry 06/16/17 Mora Fritz Behavioral Health Navigator 06/15/18 Ok Jorge MD #[address] [address] Consulting Physician Endocrinology 05/12/22 Orlin Urbina APRN, MILK CONDENSER #[address] [place] [address] Nurse Practitioner Advanced Practice Nurse 11/09/22 documented as of this encounter
--- OUTSIDE RECORDS SUMMARY | 2024-10-07 00:20 | XMS_ITS | Encounter Summary ---
Author Organization [facility] Address [address] [place] [address] Phone Care Team Providers Care Hydroelectric Powerplant Supervisor Name Role Phone Oswaldo Serrano MD Primary Care Provider [phone] Angel Crowe DPM Unavailable [phone] Mora Fritz Unavailable Unavailable Ok Jorge MD Unavailable Orlin Urbina APRN, PSYCHIATRIC ARNP Unavailable + [phone] Reason for Referral * Radiology Services (Routine) - Closed Specialty Diagnoses / Procedures Referred By Contac t Referred To Contact Radiology Diagnoses Fall, initial encounter Procedures XR KNEE 1 OR 2 VIEWS RIGHT XR KNEE 3 VIEWS RIGHT Oswaldo Serrano MD #[address] [address] Phone: tel: fax: Referral ID Status Reason Start Date Expiration Date Visits Re quested Visits Authorized [id number] Closed 02/23/2024 1 1 Reason for Visit * Radiology Services (Routine) - Closed Specialty Diagnoses / Procedures Referred By Contnay t Referred To Contact Radiology Diagnoses Fall, initial encounter Procedures XR KNEE 1 OR 2 VIEWS RIGHT XR KNEE 3 VIEWS RIGHT Oswaldo Serrano MD #[address] [address] Phone: tel: fax: Referral ID Status Reason Start Date Expiration Date Visits Re quested Visits Authorized [id number] Closed 02/23/2024 1 1 Encounter Details Date Type Department Care Team (Latest Contact Info) Description 02/23/2024 5:11 PM CDT - 02/23/2024 11:59 PM CDT Hospital Encounter [facility] Diagnostic Radiology 1 [place] [address] Oswaldo Serrano MD #[address] [address] Discharge Disposition: Discharged to home or Selfcare Social History Tobacco Use Types Packs/Day Years Used Date Smoking Tobacco: Never Smokeless Tobacco: Never Alcohol Use Standard Drinks/Week Comments No 0 (1 standard drink = 0.6 oz pur e alcohol) [facility] Utilities Answer Date Recorded In the past 12 months has [employer], gas, oil, or water [employer] threatened to shut off services in your [...] often do you attend chur ch or methodist services? Never 11/09/2023 Do you belong to any clubs o r organizations such as anglican groups, unions, fraternal or athletic groups, or [...] Total Score - Questions 1-9 0 07/12 [facility] of Occupat ional Health - Occupational Stress [...] on file documented as of this encounter Functional Status * Question Answer Date of Assessment Author Little interest or pleasure in doing things Several days 02/23/2024 4:26 PM CDT Stephanie Patrick MA Feeling down, depressed, or hopeless Several days 02/23/2024 4:26 PM CDT Stephanie Patrick MA * Over the past 2 weeks, how often have you been bothered by any of the following problems? Question Answer Date of Assessment Author Patient Health Questionnaire -2 Score 2 02/23/2024 4:26 PM CDT Stephanie Patrick MA documented as of this encounter Medications at Time of Discharge Blood Glucose Monitoring Suppl Device Test blood glucose 1x daily, E11.9, insulin dependent 1 Each 12/30/2022 Blood Glucose Monitoring Suppl Device Test blood glucose 4 times daily. E11.9, insulin dependent 1 Each 2019 Continuous Blood Gluc Pants Maker (Dexcom G7 Pants Maker) Device 1 Each by Does not apply route 4 times daily. Use to check glucose 4x daily. 1 Each 04/29/2023 Continuous Blood Gluc Transmit (Dexcom G6 Transmitter) Misc 12/03/2021 Cyanocobalamin (B-12) 500 MCG Tablet Take 1 Tablet by mouth daily. 90 Tablet 3 11/14/2022 dilTIAZem (CARDIZEM) 30 MG Tablet TK 1 T PO TID 0 04/28/2017 Entresto 24-26 MG Tablet 09/11/2021 fluticasone (FLONASE) 50 MCG/ACT Suspension 1-2 Sprays by Nasal route daily. Use in each nostril as directed. 1 g 3 02/01/2023 Glucose Blood (OneTouch Verio) Strip 4 times a day 400 Each 3 01/04/2024 Glucose Blood Strip Use to test blood glucose 1x daily. E11.9, insulin dependent 100 Strip 3 12/15/2023 insulin glargine (Basaglar KwikPen) 100 UNIT/ML Solution Pen-injector 18 Units by Subcutaneous route every morning. 15 mL 1 02/09/2024 Insulin Pen Needle (BD Pen Needle Trina 2nd Gen) 32G X 4 MM Misc USE TO INJECT FOUR TIMES DAILY 400 Each 3 10/11/2023 Insulin Syringe-Needle U-100 (TRUEPLUS INSULIN SYRINGE) 31G X 5/16 0.5 ML Misc USE 4 TIMES DAILY 400 Each 3 2019 Lancets Misc 1 Lancet by Does not apply route daily. Test blood glucose 1x daily. E11.9, insulin dependent 100 Lancet 3 12/30/2022 Lancets Misc Test four times daily. E11.9, insulin dependent 400 Lancet 3 2019 NovoLOG FlexPen 100 UNIT/ML Solution Pen-injector INJECT 16-13-10 UNITS BEFORE EACH MEAL -- ISF OF 1:30 IF GREATER THAN 140MG/DL UP TO 70 UNITS PER DAY 75 mL 1 07/18/2023 potassium chloride SA (KLORCON M) 20 MEQ Tablet Controlled ReleaseIndication s:Chronic congestive heart failure, unspecified heart failure type (HCC) Take 1 Tablet by mouth daily. 90 Tablet 1 01/20/2024 albuterol 108 (90 Base) MCG/ACT Aerosol Solution take 1-2 Puffs by inhalation every 4 hours as needed for Cough. 18 g 12/05/2023 4 carvedilol (COREG) 25 MG Tablet 25 mg 2 times daily. 05/06/2017 4 Continuous Blood Gluc Sensor (Dexcom G6 Sensor) Misc 10/05/2022 4 Continuous Blood Gluc Sensor (Dexcom G7 Sensor) Misc 1 Each by Does not apply route every 10 days. Change sensor every 10 days. 9 Each 1 12/12/2023 4 Dapagliflozin Propanediol (Farxiga) 10 MG Tablet Take by mouth. 06/01/2022 4 docusate sodium (COLACE) 100 MG Capsule TAKE 1 CAPSULE BY MOUTH TWICE DAILY 60 Capsule 2 02/02/2024 4 escitalopram (LEXAPRO) 10 MG Tablet TAKE 1 TABLET BY MOUTH DAILY 90 Tablet 1 12/12/2023 4 furosemide (LASIX) 40 MG TabletIndications :Chronic congestive heart failure, unspecified heart failure type (HCC) TAKE 1 TABLET BY MOUTH DAILY 90 Tablet 2 07/18/2023 4 levoFLOXacin (LEVAQUIN) 500 MG Tablet Take 1 Tablet by mouth daily for 7 days. 7 Tablet 02/23/2024 4 levothyroxine (SYNTHROID) 75 MCG Tablet Take 1 Tablet by mouth every morning. 90 Tablet 3 08/28/2023 4 nortriptyline (PAMELOR) 10 MG Capsule Take 1 Capsule by mouth nightly. 90 Capsule 1 12/04/2023 4 omeprazole (PriLOSEC) 20 MG CAPSULE DELAYED RELEASE Take 1 Capsule by mouth daily. 90 Capsule 1 01/20/2024 4 rivaroxaban (Xarelto) 20 MG Tablet Take 20 mg by mouth daily (with dinner). Take with food. 4 documented as of this encounter Plan of Treatment Upcoming Encounters Date Type Department Care Team (Late st Contact Info) Description 10/08/2024 2:15 PM YARD JACKER Office Visit [facility] #2 [place] [address] Orlin Urbina, SUPERVISOR COOPERAGE SHOP, PSYCHIATRIC ARNP #2 [place] [address] 10/18/2024 2:15 PM YARD JACKER Appointment [facility] Mammography 1 [place] [address] Oswaldo Serrano MD #[address] [address] Discharge Disposition: Discharged to home or Selfcare 11/29/2024 2:30 PM YARD JACKER Office Visit [facility] Medical [facility] - Family Medicine - [place] #2 [place] [address] Oswaldo Serrano MD #2 [facility] [address] [place] [address] 11/30/2024 3:00 PM YARD JACKER Office Visit [facility] - Endocrinology - [place] #2 [place] [address] Ok Jorge MD #2 [facility] [address] [place] [address] documented as of this encounter Procedures Procedure Name Priority Date/Time Associated Diagnosis Comments XR KNEE 1 OR 2 VIEWS RIGHT Routine 02/23/2024 5:17 PM CDT Fall, initial encounter documented in this encounter Results * XR KNEE 1 OR 2 VIEWS RIGHT (02/23/2024 5:17 PM CDT) Anatomical Region Laterality Modality LOWER EXTREMITY, knee Right Digital Ra diography 02/24/2024 5:07 PM CDT Impressions 02/24/2024 5:10 PM CDT IMPRESSION: No acute fracture. 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 Mild patellofemoral compartment left knee osteoarthritis. Narrative 02/24/2024 5:10 PM CDT EXAM DESCRIPTION: XR HAND 3 OR MORE VIEWS LEFT; XR KNEE 1 OR 2 VIEWS left; XR TIBIA and FIBULA LEFT REASON FOR STUDY: Bump to 4th digit with pain, unknown duration ??; Right knee pain after a fall on Tuesday. ??; Pt states left lower leg pain after a fall on tuesday. ? FINDINGS: Three views right hand, two views left leg and two views left knee submitted without comparison. Left hand: No acute fractures are identified. 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 ??There is mild 1st metacarpophalangeal and polyarticular interphalangeal joint osteoarthritis. ??There is no dorsal wrist soft tissue swelling. Left leg/knee: No acute fractures are identified. ??There is mild patellofemoral compartment left knee osteoarthritis. ??There is no effusion. ??Distal tibia and fibular alignment is normal. ??Ankle osteoarthritis is noted. THIS IS AN ELECTRONICALLY VERIFIED FINAL REPORT 02/24/2024 5:07 PM - Electronically signed by ??Tom Wyman M.D. MF: [email or web address] D: ??02/24/2024 5:07 PM T: ??02/24/2024 5:07 PM Report ID: [id number] Reading Location: ??[id number] Procedure Note Tom Wyman MD - 02/24/2024 EXAM DESCRIPTION: XR HAND 3 OR MORE VIEWS LEFT; XR KNEE 1 OR 2 VIEWS left; XR TIBIA and FIBULA LEFT REASON FOR STUDY: Bump to 4th digit with pain, unknown duration ; Right knee pain after a fall on Tuesday. ; Pt states left lower leg pain after a fall on tuesday. FINDINGS: Three views right hand, two views left leg and two views left knee submitted without comparison. Left hand: No acute fractures are identified. 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 There is mild 1st metacarpophalangeal and polyarticular interphalangeal joint osteoarthritis. There is no dorsal wrist soft tissue swelling. Left leg/knee: No acute fractures are identified. There is mild patellofemoral compartment left knee osteoarthritis. There is no effusion. Distal tibia and fibular alignment is normal. Ankle osteoarthritis is noted. THIS IS AN ELECTRONICALLY VERIFIED FINAL REPORT 02/24/2024 5:07 PM - Electronically signed by Tom Wyman M.D. MF: [id number] Report ID: [id number] Reading Location: [id number] IMPRESSION: No acute fracture. 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 Mild patellofemoral compartment left knee osteoarthritis. Oswaldo Serrano MD IM DIAGNOSTIC ORDERABLES F inal Result documented in this encounter Visit Diagnoses Diagnosis Fall, initial encounter documented in this encounter Additional Health Concerns Assessment Noted Time PHQ-9 Depression Total Score: 0 08/09/20 23 2:56 PM CDT documented as of this encounter Care Teams Hydroelectric Powerplant Supervisor Relationship Specialty Start Date End Date Oswaldo Serrano MD #2 [facility] [address] [place] [address] PCP - General Family Medicine 05/19/17 Angel Crowe DPM #2 [facility] [address] [place] [address] Consulting Physician Podiatry 06/16/17 Mora Fritz Behavioral Health Navigator 06/15/18 Ok Jorge MD #2 [facility] [address] [place] [address] Consulting Physician Endocrinology 05/12/22 Orlin Urbina APRN, PSYCHIATRIC ARNP #2 [place] [address] Nurse Practitioner Advanced Practice Nurse 11/09/22 documented as of this encounter
--- OUTSIDE RECORDS SUMMARY | 2024-10-07 00:20 | XMS_ITS | Encounter Summary ---
Author Organization [facility] Address [address] [place] [address] Phone Care Team Providers Care Riveter Name Role Phone Oswaldo Serrano MD Primary Care Provider [phone] Angel Crowe DPM Unavailable [phone] Mora Fritz Unavailable Unavailable Ok Jorge MD Unavailable Orlin Urbina APRN, SALON MANAGER Unavailable Encounter Details Date Type Department Care Team (Late st Contact Info) Description 05/25/2024 Telephone [facility] - Family Medicine [facility] #[address] [place] [address] [facility]aldo [facility] MD [facility] [id number] Social History Tobacco Use Types Packs/Day Years Used Date Smoking Tobacco: Never Smokeless Tobacco: Never Alcohol Use Standard Drinks/Week Comments No 0 (1 standard drink = 0.6 oz pur e alcohol) [facility] Utilities Answer Date Recorded In the [...] often do you attend chur ch or restorationism services? Never 11/09/2023 Do you belong to any clubs o r organizations such as yarsani groups, unions, fraternal or athletic groups, or [...] Total Score - Questions 1-9 0 07/12 [facility] of Occupat ional Health - Occupational [...] encounter Miscellaneous Notes * Telephone Encounter - Trudi Augustin CMA - 05/25/2024 2:59 PM CDT Pt scheduled for 05/30/24. * Telephone Encounter - Oswaldo Serrano MD - 05/25/2024 12:14 PM CDT Schedule her for telephone follow-up with me next week for hospital follow-up. Thanks! documented in this encounter Plan of Treatment Upcoming Encounters Date Type Department Care Team (Late st Contact Info) Description 10/08/2024 2:15 PM IMCU SPECIALIST Office Visit [facility] #2 [facility] [place] [address] Orlin Urbina APRN, SALON MANAGER #2 [place] [address] 10/18/2024 2:15 PM IMCU SPECIALIST [facility] 1 [place] [phone] Oswaldo Serrano MD #2 [facility] [address] [place] [address] Discharge Disposition: Discharged to home or Selfcare 11/29/2024 2:30 PM IMCU SPECIALIST Office Visit [facility] - Family Medicine - [place] #2 [place] [address] Oswaldo Serrano MD #2 [facility] [address] [place] [address] 11/30/2024 3:00 PM IMCU SPECIALIST Office Visit [facility] - Endocrinology - [place] #2 [place] [address] Ok Jorge MD #2 [facility] [address] [place] [address] documented as of this encounter Visit Diagnoses Not on filedocumented in this encounter Additional Health Concerns Assessment Noted Time PHQ-9 Depression Total Score: 0 08/09/20 23 2:56 PM CDT documented as of this encounter Care Teams Riveter Relationship Specialty Start Date End Date Oswaldo Serrano MD #2 [facility] [address] [place] [address] PCP - General Family Medicine 05/19/17 Angel Crowe DPM #2 [facility] [address] [place] [address] Consulting Physician Podiatry 06/16/17 Mora Fritz [place] Behavioral Health Navigator 06/15/18 Ok Jorge MD #2 [facility] [address] [place] [address] Consulting Physician Endocrinology 05/12/22 Orlin Urbina, MEDICAL LEAD, SALON MANAGER #2 [place] [address] Nurse Practitioner Advanced Practice Nurse 11/09/22 documented as of this encounter
--- OUTSIDE RECORDS SUMMARY | 2024-10-07 00:20 | XMS_ITS | Encounter Summary ---
Author Organization [facility] Address [address] [place] [address] Phone Care Team Providers Care Structural Worker Name Role Phone Oswaldo Serrano MD Primary Care Provider [phone] Angel Crowe DPCiara Unavailable [phone] Mora Fritz Unavailable Unavailable Ok Jorge MD Unavailable Orlin Urbina APRN, WHEEL ALIGNMENT MECHANIC Unavailable [phone] Reason for Visit * Reason Comments Medication Refill Encounter Details Date Type Department Care Team (Late st Contact Info) Description 06/18/2024 Refill [facility] - Family Medicine - [place] #2 [place] [address] Oswaldo Serrano MD #[address] [address] Medication Refill Social History Tobacco Use Types Packs/Day Years Used Date Smoking Tobacco: Never Smokeless Tobacco: Never Alcohol Use Standard Drinks/Week Comments No 0 (1 standard drink = 0.6 oz pur e alcohol) [facility] Utilities Answer Date Recorded In [...] often do you attend chur ch or protestant services? Never 11/09/2023 Do you belong to any clubs o r organizations such as restorationism groups, unions, fraternal or athletic groups, or [...] Total Score - Questions 1-9 0 07/12 [facility] [place] of Occupat ional Health - Occupational Stress [...] place to sleep or slept in a [place] health care facility (including now)? No 11/09/2023 Education Answer Date [...] Telephone Encounter - Mica Morales RN - 06/18/2024 11:45 AM CDT Medication failed the protocol, provider to review and approve the medication order if appropriate. Requested Prescriptions Pending Prescriptions Disp Refills escitalopram (LEXAPRO) 10 MG Tablet [Pharmacy Med Name: ESCITALOPRAM 10MG TABLETS] 90 Tablet 1 Sig: TAKE 1 TABLET BY MOUTH DAILY SSRI (6 Month Refill Only) Protocol Failed - 06/18/2024 3:22 AM Failed - Has an encounter in the past 6 months with a depression, anxiety, adjustment disorder, OCD, or PTSD visit diagnosis Passed - Visit with relevant provider in past 6 months or upcoming 90 days Recent Visits Date Type Provider Dept 03/08/24 Telemedicine Oswaldo Serrano MD [facility] 02/23/24 Office Visit Oswaldo Serrano MD [facility] Showing recent visits within past 182 days and meeting all other requirements Future Appointments Date Type Provider Dept 06/20/24 Appointment Oswaldo Serrano MD [facility] Showing future appointments within next 90 days and meeting all other requirements Passed - Patient has established therapy with SSRI for at least 6 months documented in this encounter Plan of Treatment Upcoming Encounters Date Type Department Care Team (Late st Contact Info) Description 10/08/2024 2:15 PM OYSTER WORKER Office Visit [facility] #2 [place] [address] Orlin Urbina APRN, WHEEL ALIGNMENT MECHANIC #2 [place] [address] 10/18/2024 2:15 PM OYSTER WORKER [facility] 1 [place] [address] Oswaldo Serrano MD #[address] [address] Discharge Disposition: Discharged to home or Selfcare 11/29/2024 2:30 PM OYSTER WORKER Office Visit [facility] - Family Medicine [facility] #2 [place] [address] Oswaldo Serrano MD #[address] [address] 11/30/2024 3:00 PM OYSTER WORKER Office Visit [facility] - Endocrinology - [place] #2 [place] [address] Ok Jorge MD [address] [address] documented as of this encounter Visit Diagnoses Not on filedocumented in this encounter Additional Health Concerns Assessment Noted Time PHQ-9 Depression Total Score: 0 08/09/20 23 2:56 PM CDT documented as of this encounter Care Teams Structural Worker Relationship Specialty Start Date End Date Oswaldo Serrano MD #[address] [address] PCP - General Family Medicine 05/19/17 Angel Crowe DPM #[address] [address] Consulting Physician Podiatry 06/16/17 Mora Fritz [place] Behavioral Health Navigator 06/15/18 Ok Jorge MD #[address] [address] Consulting Physician Endocrinology 05/12/22 Orlin Urbina APRN, WHEEL ALIGNMENT MECHANIC #2 [place] [address] Nurse Practitioner Advanced Practice Nurse 11/09/22 documented as of this encounter
--- OUTSIDE RECORDS SUMMARY | 2024-10-07 00:20 | XMS_ITS | Encounter Summary ---
Author Organization [facility] Address [address] [place] [address] Phone Care Team Providers Care Civil Lawyer Name Role Phone Oswaldo Serrano MD Primary Care Provider [phone] Angel Crowe DPCiara Unavailable [phone] Mora Fritz Unavailable Unavailable Ok Jorge MD Unavailable Orlin Urbina APRN, MILLER APPRENTICE Unavailable [phone] Reason for Visit * Reason Comments Medication Refill Encounter Details Date Type Department Care Team (Late st Contact Info) Description 05/27/2024 Refill [facility] - [facility] Medicine - [place] #2 [place] [address] Oswaldo Serrano MD #[address] [address] Medication Refill Social History Tobacco Use Types Packs/Day Years Used Date Smoking Tobacco: Never Smokeless Tobacco: Never Alcohol Use Standard Drinks/Week Comments No 0 (1 standard drink = 0.6 oz pur e alcohol) [facility] Utilities Answer Date Recorded In [...] often do you attend chur ch or alevism services? Never 11/09/2023 Do you belong to any clubs o r organizations such as lutheran groups, unions, fraternal or athletic groups, or [...] Total Score - Questions 1-9 0 07/12 [facility] [place] of Occupat ional Health - Occupational Stress [...] place to sleep or slept in a skilled nursing (including now)? No 11/09/2023 Education Answer Date [...] st Contact Info) Description 10/08/2024 2:15 PM BANQUET STEWARD Office Visit [facility] #2 [place] [address] Orlin Urbina, SOFTWARE PROJECT MANAGER, MILLER APPRENTICE #2 [place] [address] 10/18/2024 2:15 PM BANQUET STEWARD Appointment [facility] Mammography 1 [place] [address] Oswaldo Serrano MD #[address] [address] Discharge Disposition: Discharged to home or Selfcare 11/29/2024 2:30 PM BANQUET STEWARD Office Visit [facility] - [facility] Medicine [facility] #2 [place] [address] Oswaldo Serrano MD #[address] [address] 11/30/2024 3:00 PM BANQUET STEWARD Office Visit [facility] Endocrinology - [place] #2 [place] [address] Ok Jorge MD #[address] [address] documented as of this encounter Visit Diagnoses Not on filedocumented in this encounter Additional Health Concerns Assessment Noted Time PHQ-9 Depression Total Score: 0 08/09/20 23 2:56 PM CDT documented as of this encounter Care Teams Civil Lawyer Relationship Specialty Start Date End Date Oswaldo Serrano MD #[address] [address] PCP - General Family Medicine 05/19/17 Angel Crowe DPM #[address] [address] Consulting Physician Podiatry 06/16/17 Mora Fritz [place] Behavioral Health Navigator 06/15/18 Ok Jorge MD #[address] [address] Consulting Physician Endocrinology 05/12/22 Orlin Urbina APRN, MILLER APPRENTICE #[address] [place] [address] Nurse Practitioner Advanced Practice Nurse 11/09/22 documented as of this encounter
--- OUTSIDE RECORDS SUMMARY | 2024-10-07 00:20 | XMS_ITS | Encounter Summary ---
Author Organization [facility] Address [address] [place] [address] Phone Care Team Providers Care Bioinformatics Software Engineer Name Role Phone Oswaldo Serrano MD Primary Care Provider [phone] Angel Crowe DPCiara Unavailable [phone] Mora Fritz Unavailable Unavailable Ok Jorge MD Unavailable Orlin Urbina APRN, BILINGUAL STUDENT TUTOR Unavailable + [phone] Reason for Referral * Radiology Services (Routine) - Closed Specialty Diagnoses / Procedures Referred By Contac t Referred To Contact Radiology Diagnoses Fall, initial encounter Procedures XR HAND 3 OR MORE VIEWS LEFT Oswaldo Serrano MD #[address] [address] Phone: tel: fax: Referral ID Status Reason Start Date Expiration Date Visits Re quested Visits Authorized [id number] Closed 02/23/2024 1 1 Reason for Visit * Radiology Services (Routine) - Closed Specialty Diagnoses / Procedures Referred By Praful t Referred To Contact Radiology Diagnoses Fall, initial encounter Procedures XR HAND 3 OR MORE VIEWS LEFT Oswaldo Serrano MD #[address] [address] Phone: tel: fax: Referral ID Status Reason Start Date Expiration Date Visits Re quested Visits Authorized [id number] Closed 02/23/2024 1 1 Encounter Details Date Type Department Care Team (Latest Contact Info) Description 02/23/2024 5:11 PM CDT - 02/23/2024 11:59 PM CDT Hospital Encounter [facility] Diagnostic Radiology [address] [place] [address] Oswaldo Serrano MD #[address] [address] Discharge Disposition: Discharged to home or Selfcare Social History Tobacco Use Types Packs/Day Years Used Date Smoking Tobacco: Never Smokeless Tobacco: Never Alcohol Use Standard Drinks/Week Comments No 0 (1 standard drink = 0.6 oz pur e alcohol) [facility] Utilities Answer Date Recorded In the past 12 months has [employer] electric, gas, oil, or water company threatened [...] Total Score - Questions 1-9 0 07/12 [facility] of Occupat ional [facility] - Occupational Stress Questionnaire Answer Date [...] place to sleep or slept in a jail (including now)? No 11/09/2023 Education Answer Date [...] dependent 1 Each 2019 Continuous Blood Gluc Rehanger (Dexcom G7 Rehanger) Device 1 Each by Does not apply [...] st Contact Info) Description 10/08/2024 2:15 PM TIN TIE MACHINE OPERATOR AUTOMATIC Office Visit [facility] #2 [place] [address] Orlin Urbina, LIQUOR STORE MANAGER, BILINGUAL STUDENT TUTOR #2 [place] [address] 10/18/2024 2:15 PM TIN TIE MACHINE OPERATOR AUTOMATIC Appointment [facility] Mammography 1 [place] [address] Oswaldo Serrano MD #[address] [address] Discharge Disposition: Discharged to home or Selfcare 11/29/2024 2:30 PM TIN TIE MACHINE OPERATOR AUTOMATIC Office Visit [facility] Medical Group - Family Medicine - [place] #2 [place] [address] Oswaldo Serrano MD #2 [facility] [address] [place] [address] 11/30/2024 3:00 PM TIN TIE MACHINE OPERATOR AUTOMATIC Office Visit [facility] - Endocrinology - [place] #2 [place] [address] Ok Jorge MD #2 [facility] [address] [place] [address] documented as of this encounter Procedures Procedure Name Priority Date/Time Associated Diagnosis Comments XR HAND 3 OR MORE VIEWS LEFT Routine 02/23/2024 5:12 PM CDT Fall, initial encounter documented in this encounter Results * XR HAND 3 OR MORE VIEWS LEFT (02/23/2024 5:12 PM CDT) Anatomical Region Laterality Modality UPPER EXTREMITY, hand Left Digital Ra diography 02/24/2024 5:07 PM CDT [...] PM T: ??02/24/2024 5:07 PM Report ID: [id number] Reading Location: ??[id number] Procedure Note Tom Wyman MD - 02/24/2024 [...] Tom Wyman M.D. MF: LIZ Report ID: [id number] Reading Location: [id number] IMPRESSION: No acute fracture. 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 Mild patellofemoral compartment left knee osteoarthritis. Oswaldo Serrano MD [facility] ORDER[facility] F inal Result documented in this encounter Visit Diagnoses Diagnosis Fall, initial encounter documented in this encounter Additional Health Concerns Assessment Noted Time PHQ-9 Depression Total Score: 0 08/09/20 23 2:56 PM CDT documented as of this encounter Care Teams Bioinformatics Software Engineer Relationship Specialty Start Date End Date Oswaldo Serrano MD #2 [facility] [address] [place] [address] PCP - General Family Medicine 05/19/17 Angel Crwoe DPM #2 [facility] [address] [place] [address] Consulting Physician Podiatry 06/16/17 Mora Fritz [place] Behavioral Health Navigator 06/15/18 Ok Jorge MD #2 [facility] [address] [place] [address] Consulting Physician Endocrinology 05/12/22 Orlin Urbina APRN, BILINGUAL STUDENT TUTOR #2 [place] [address] Nurse Practitioner Advanced Practice Nurse 11/09/22 documented as of this encounter
--- OUTSIDE RECORDS SUMMARY | 2024-10-07 00:20 | XMS_ITS | Encounter Summary ---
Author Organization [facility] Address [address] [place] [address] Phone Care Team Providers Care Household Manager Name Role Phone Oswaldo Serrano MD Primary Care Provider [phone] Angel Crowe DPCiara Unavailable [phone] Mora Fritz Unavailable Unavailable Ok Jorge MD Unavailable Orlin Urbina APRN, CALL CENTER MANAGER Unavailable + [phone] Reason for Referral * Radiology Services (Routine) - Closed Specialty Diagnoses / Procedures Referred By Contac t Referred To Contact Radiology Diagnoses Fall, initial encounter Procedures XR TIBIA & FIBULA LEFT Oswaldo Serrano MD #[address] [address] Phone: tel: fax: Referral ID Status Reason Start Date Expiration Date Visits Re quested Visits Authorized [id number] Closed 02/23/2024 1 1 Reason for Visit * Radiology Services (Routine) - Closed Specialty Diagnoses / Procedures Referred By Praful t Referred To Contact Radiology Diagnoses Fall, initial encounter Procedures XR TIBIA & FIBULA LEFT Oswaldo Serrano MD #[address] [address] Phone: tel: fax: Referral ID Status Reason Start Date Expiration Date Visits Re quested Visits Authorized [id number] Closed 02/23/2024 1 1 Encounter Details Date Type Department Care Team (Latest Contact Info) Description 02/23/2024 5:11 PM CDT - 02/23/2024 11:59 PM CDT Hospital Encounter [facility] Diagnostic Radiology 1 [place] [address] Oswaldo Serrano MD #[address] [address] Discharge Disposition: Discharged to home or Selfcare Social History Tobacco Use Types Packs/Day Years Used Date Smoking Tobacco: Never Smokeless Tobacco: Never Alcohol Use Standard Drinks/Week Comments No 0 (1 standard drink = 0.6 oz pur e alcohol) [facility] Utilities Answer Date Recorded In the [...] often do you attend chur ch or moravian services? Never 11/09/2023 Do you belong to any clubs o r organizations such as mormonism groups, unions, fraternal or athletic groups, or [...] Total Score - Questions 1-9 0 07/12 [facility] of Occupat ional [facility] - Occupational Stress Questionnaire Answer Date [...] place to sleep or slept in a fpc (including now)? No 11/09/2023 Education Answer Date [...] dependent 1 Each 2019 Continuous Blood Gluc Analysis Director (Dexcom G7 Analysis Director) Device 1 Each by Does not apply [...] st Contact Info) Description 10/08/2024 2:15 PM BOAT RENTAL CLERK Office Visit [facility] #2 [place] [address] Orlin Urbina, LENS GRINDER AND POLISHER, CALL CENTER MANAGER #2 [place] [address] 10/18/2024 2:15 PM BOAT RENTAL CLERK Appointment [facility] Mammography 1 [place] [address] Oswaldo Serrano MD #[address] [address] Discharge Disposition: Discharged to home or Selfcare 11/29/2024 2:30 PM BOAT RENTAL CLERK Office Visit [facility] Medical [facility] - Family Medicine - [place] #2 [place] [address] Oswaldo Serrano MD #2 [facility] [address] [place] [address] 11/30/2024 3:00 PM BOAT RENTAL CLERK Office Visit [facility] - Endocrinology - [place] #2 [place] [address] Ok Jorge MD #2 [facility] [address] [place] [address] documented as of this encounter Procedures Procedure Name Priority Date/Time Associated Diagnosis Comments XR TIBIA & FIBULA LEFT Routine 02/23/2024 5:18 PM CDT Fall, initial encounter documented in this encounter Results * XR TIBIA & FIBULA LEFT (02/23/2024 5:18 PM CDT) Anatomical Region Laterality Modality LOWER EXTREMITY, leg Left Digital Rad iography 02/24/2024 5:07 PM CDT Impressions 02/24/2024 5:10 [...] PM T: ??02/24/2024 5:07 PM Report ID: [id number] Reading Location: ??[id number] Procedure Note Tom Wyman MD - 02/24/2024 [...] Tom Wyman M.D. MF: LIZ Report ID: [id number] Reading Location: [id number] IMPRESSION: No acute fracture. Polyarticular left hand [...] documented as of this encounter Care Teams Household Manager Relationship Specialty Start Date End Date Oswaldo Serrano MD #2 [facility] [address] [place] [address] PCP - General Family Medicine 05/19/17 Angel Crowe DPM #2 [facility] [address] [place] [address] Consulting Physician Podiatry 06/16/17 Mora Fritz [place] Behavioral Health Navigator 06/15/18 Ok Jorge MD #[address] [address] Consulting Physician Endocrinology 05/12/22 Orlin Urbina, LENS GRINDER AND POLISHER, CALL CENTER MANAGER #2 [place] [address] Nurse Practitioner Advanced Practice Nurse 11/09/22 documented as of this encounter
--- OUTSIDE RECORDS SUMMARY | 2024-10-07 00:20 | XMS_ITS | Encounter Summary ---
Author Organization [facility] Address [address] [place] [address] Phone Care Team Providers Care Dietetic Technician Name Role Phone Oswaldo Serrano MD Primary Care Provider [phone] Angel Crowe DPCiara Unavailable [phone] Mora Fritz Unavailable Unavailable Ok Jorge MD Unavailable Orlin Urbina APRN, CEREAL CHEMIST Unavailable Reason for Visit * Reason Onset Date Comments Advice Only 08/03/2024 Encounter Details Date Type Department Care Team (Late st Contact Info) Description 08/03/2024 Telephone [facility] [address] [place] [address] Oswaldo Serrano MD #[address] [address] Advice Only Social History Tobacco Use Types Packs/Day Years Used Date Smoking Tobacco: Never Smokeless Tobacco: Never Alcohol Use Standard Drinks/Week Comments No 0 (1 standard drink = 0.6 oz pur e alcohol) [facility] Utilities Answer Date Recorded In [...] any clubs o r organizations such as sikh groups, unions, fraternal or athletic groups, or [...] Total Score - Questions 1-9 0 07/12 [facility] of Occupat ional Health - Occupational Stress [...] encounter Miscellaneous Notes * Telephone Encounter - Tina Cortes CMA - 08/03/2024 1:43 PM CDT Connor Yuan NP gave verbal orders to Hamzah. * Telephone Encounter - Matias Strange Irina - 08/03/2024 9:05 AM CDT RFC: Hamzah with [facility] called to request orders from patients pcp for PT,OT, and nursing. Loretta was discharged from the hospital on 08/02/24 and they have an appointment set to see pt with nursing tomorrow 08/04. Call back number is [phone] fax number [phone]. Please call aHmzah (relationship to patient na) back regarding above referenced patient. Patient's Provider is Dr. Serrano. documented in this encounter Plan of Treatment Upcoming Encounters Date Type Department Care Team (Late st Contact Info) Description 10/08/2024 2:15 PM HOE WORKER Office Visit [facility] UROLOGY #2 [place] [address] Orlin Urbina APRN, CEREAL CHEMIST #2 [place] [address] 10/18/2024 2:15 PM HOE WORKER [facility]ointment [facility] 1 [place] [address] Oswaldo Serrano MD #[address] [address] Discharge Disposition: Discharged to home or Selfcare 11/29/2024 2:30 PM HOE WORKER Office Visit [facility] - [facility] Medicine [facility] #2 [facility] [address] Oswaldo Serrano MD #2 [facility] [address] [place] [address] 11/30/2024 3:00 PM HOE WORKER Office Visit [facility] - Endocrinology - [place] #2 [place] [address] Ok Jorge MD #2 [facility] [address] [place] [address] documented as of this encounter Visit Diagnoses Not on filedocumented in this encounter Additional Health Concerns Assessment Noted Time PHQ-9 Depression Total Score: 0 08/09/20 23 2:56 PM CDT documented as of this encounter Care Teams Dietetic Technician Relationship Specialty Start Date End Date Oswaldo Serrano MD #2 [facility] [address] [place] [address] PCP - General Family Medicine 05/19/17 Angel Crowe DPM #2 [facility] [address] [place] [address] Consulting Physician Podiatry 06/16/17 Mora Fritz [place] Behavioral Health Navigator 06/15/18 Ok Jorge MD #2 [facility] [address] [place] [address] Consulting Physician Endocrinology 05/12/22 Orlin Urbina APRN, CEREAL CHEMIST #2 [place] [address] Nurse Practitioner Advanced Practice Nurse 11/09/22 documented as of this encounter
--- OUTSIDE RECORDS SUMMARY | 2024-10-07 00:20 | XMS_ITS | Encounter Summary ---
Author Organization [facility] Address [address] [place] [address] Phone Care Team Providers Care Donkey Engine Firer/Fireman Name Role Phone Oswaldo Serrano MD Primary Care Provider [phone] Angel Crowe DPM Unavailable [phone] Mora Fritz Unavailable Unavailable Ok Jorge MD Unavailable Orlin Urbina APRN, DIGESTER COOK Unavailable [phone] Reason for Visit * Reason Comments Medication Refill Encounter Details Date Type Department Care Team (Late st Contact Info) Description 04/02/2024 Refill [facility] - [facility] Medicine - [place] #2 [place] [address] Connor Yuan APRN, DIGESTER COOK #[address] [address] Medication Refill Social History Tobacco Use Types Packs/Day Years Used Date Smoking Tobacco: Never Smokeless Tobacco: Never Alcohol Use Standard Drinks/Week Comments No 0 (1 standard drink = 0.6 oz pur e alcohol) [facility] Utilities Answer Date Recorded In the [...] often do you attend chur ch or rastafari services? Never 11/09/2023 Do you belong to [...] Total Score - Questions 1-9 0 07/12 [facility] of Occupat ional Health - Occupational Stress [...] place to sleep or slept in a penitentiary (including now)? No 11/09/2023 Education Answer Date [...] Telephone Encounter - Mica Morales RN - 04/02/2024 3:05 PM CDT Medication(s) refilled and signed per [facility] Chronic Medication Refill Standing Order for Pediatricand Adult Patients. Requested Prescriptions Pending Prescriptions Disp Refills furosemide (LASIX) 40 MG Tablet [Pharmacy Med Name: FUROSEMIDE 40MG TABLETS] 90 Tablet 2 Sig: TAKE 1 TABLET BY MOUTH DAILY Diuretics Protocol Passed - 04/02/2024 5:50 AM Passed - Serum potassium on record in past 12 months POTASSIUM Date Value Ref Range Status 11/09/2023 4.0 3.5 - 5.1 mmol/L Final Passed - Serum sodium on record in past 12 months SODIUM Date Value Ref Range Status 11/09/2023 140 136 - 145 mmol/L Final Passed - Blood pressure on record in past 12 months Clinician-entered: BP Readings from Last 3 Encounters: 02/23/24 114/84 01/24/24 133/78 01/04/24 140/87 Patient-entered: No data recorded Passed - Visit with relevant provider in past 12 months or upcoming 90 days Recent Visits Date Type Provider Dept 03/08/24 Telemedicine Oswaldo Serrano MD [facility] 02/23/24 Office Visit Oswaldo Serrano MD [facility] 11/09/23 Office Visit Oswaldo Serrano MD [facility] 08/09/23 Office Visit Oswaldo Serrano MD [facility] 05/03/23 Office Visit Oswaldo Serrano MD [facility] Showing recent visits within past 365 days and meeting all other requirements Future Appointments Date Type Provider Dept 06/20/24 Appointment Oswaldo Serrano MD [facility] Showing future appointments within next 90 days and meeting all other requirements Passed - GFR on record in past 12 months GFR, EST. NONAFRICAN Date Value Ref Range Status 11/09/2023 54 (L) >=60 Final documented in this encounter Plan of Treatment Upcoming Encounters Date Type Department Care Team (Late st Contact Info) Description 10/08/2024 2:15 PM VASCULAR ULTRASOUND TECHNOLOGIST Office Visit [facility] #2 [place] [address] Orlin Urbina APRN, DIGESTER COOK #2 [place] [address] 10/18/2024 2:15 PM VASCULAR ULTRASOUND TECHNOLOGIST Appointment [facility] Mammography 1 [place] [address] Oswaldo Serrano MD #[address] [address] Discharge Disposition: Discharged to home or Selfcare 11/29/2024 2:30 PM VASCULAR ULTRASOUND TECHNOLOGIST Office Visit [facility] Family Medicine [facility] #2 [place] [address] Oswaldo Serrano MD #[address] [address] 11/30/2024 3:00 PM VASCULAR ULTRASOUND TECHNOLOGIST Office Visit [facility] Endocrinology - [place] #2 [place] [address] Ok Jorge MD #[address] [address] documented as of this encounter Visit Diagnoses Diagnosis Chronic congestive heart failure, unspecified heart failure type (HCC) documented in this encounter Additional Health Concerns Assessment Noted Time PHQ-9 Depression Total Score: 0 08/09/20 23 2:56 PM CDT documented as of this encounter Care Teams Donkey Engine Firer/Fireman Relationship Specialty Start Date End Date Oswaldo Serrano MD #[address] [address] PCP - General Family Medicine 05/19/17 Angel Crowe DPM #[address] [address] Consulting Physician Podiatry 06/16/17 Mora Fritz [place] Behavioral Health Navigator 06/15/18 Ok Jorge MD #[address] [address] Consulting Physician Endocrinology 05/12/22 Orlin Urbina APRN, DIGESTER COOK #[address] [place] [address] Nurse Practitioner Advanced Practice Nurse 11/09/22 documented as of this encounter
--- OUTSIDE RECORDS SUMMARY | 2024-10-07 00:20 | XMS_ITS | Encounter Summary ---
Author Organization [facility] Address [address] [place] [address] Phone Care Team Providers Care Partner Name Role Phone Oswaldo Serrano MD Primary Care Provider [phone] Angel Crowe DPM Unavailable Mora Fritz Unavailable Unavailable Ok Jorge MD Unavailable Orlin Urbnia APRN, MANAGER PHYSICAL Unavailable [phone] Reason for Visit * Reason Comments Yeast Infection Encounter Details Date Type Department Care Team (Late st Contact Info) Description 03/08/2024 4:45 PM CDT Tele[facility]icine [facility] #2 [place] [address] Oswaldo Serrano MD #[address] [address] Yeast infection (Primary Dx) Social History Tobacco Use Types Packs/Day Years Used Date Smoking Tobacco: Never Smokeless Tobacco: Never Alcohol Use Standard Drinks/Week Comments No 0 (1 standard drink = 0.6 oz pur e alcohol) [facility] Utilities Answer Date Recorded In the [...] often do you attend chur ch or voodoo services? Never 11/09/2023 Do you belong to any clubs o r organizations such as islam groups, unions, fraternal or athletic groups, or [...] Total Score - Questions 1-9 0 07/12 [facility] [place] of Occupat ional Health - Occupational Stress [...] as of this encounter Progress Notes * Oswaldo Serrano MD - 03/08/2024 4:45 PM CDT Before the initiation of today's documented service, the patient or patient guardian verbally consented to virtual/remote treatment. More than 50% of the listed time was spent counseling or coordinating care. The topics discussed are listed in the assessment and plan in this note. I spent the following number of minutes on the day of service reviewing care, coordinating care, and in direct audio and video communication with the patient: 5 minutes. This visit was performed when I was physically located at home. The patient was located at home. CC: Yeast infection. S: Spoke with sister and patient. Finished course of Levaquin for UTI. Denies any dysuria, but having vaginal itching. Sister thinks she may have yeast infection. Denies any vaginal odor or discharge. O: Psych: alert & oriented. A/P: Yeast infection - Diflucan ordered. F/U with me as scheduled in June. documented in this encounter Plan of Treatment Upcoming Encounters Date Type Department Care Team (Late st Contact Info) Description 10/08/2024 2:15 PM BONDED STRUCTURES REPAIRER Office Visit [facility] UR[facility]Y #2 [place] [address] Orlin Urbina, TURKEY PINNER, MANAGER PHYSICAL #2 [place] [address] 10/18/2024 2:15 PM BONDED STRUCTURES REPAIRER [facility]ment [facility] 1 [place] [address] Oswaldo Serrano MD #[address] [address] Discharge Disposition: Discharged to home or Selfcare 11/29/2024 2:30 PM BONDED STRUCTURES REPAIRER [facility] #2 [place] [address] Oswaldo Serrano MD #[address] [address] 11/30/2024 3:00 PM BONDED STRUCTURES REPAIRER Office Visit [facility] - Endocrinology - [place] #2 [place] [address] Ok Jorge MD #[address] [address] documented as of this encounter Visit Diagnoses Diagnosis Yeast infection- Primary Other and unspecified mycoses documented in this encounter Additional Health Concerns Assessment Noted Time PHQ-9 Depression Total Score: 0 08/09/20 23 2:56 PM CDT documented as of this encounter Care Teams Partner Relationship Specialty Start Date End Date Oswaldo Serrano MD #[address] [address] PCP - General Family Medicine 05/19/17 Angel Crowe DPM #[address] [address] Consulting Physician Podiatry 06/16/17 Mora Fritz [place] Behavioral Health Navigator 06/15/18 Ok Jorge MD #[address] [address] Consulting Physician Endocrinology 05/12/22 Orlin Urbina APRN, MANAGER PHYSICAL #2 [place] [address] Nurse Practitioner Advanced Practice Nurse 11/09/22 documented as of this encounter
--- OUTSIDE RECORDS SUMMARY | 2024-10-07 00:20 | XMS_ITS | Encounter Summary ---
Author Organization [facility] Address [address] [place] [address] Phone Care Team Providers Care Window Systems Administrator Name Role Phone Oswaldo Serrano MD Primary Care Provider [phone] Angel Crowe DPCiara Unavailable [phone] Mora Fritz Unavailable Unavailable Ok Jorge MD Unavailable Orlin Urbina APRN, FISH CONSERVATIONIST Unavailable + [phone] Reason for Referral * Radiology Services (Routine) - Open Specialty Diagnoses / Procedures Referred By Contac t Referred To Contact Radiology Diagnoses Multiple lung nodules on CT Procedures CT CHEST W/O CONTRAST Oswaldo Serrano MD #[address] [address] Phone: tel: fax: Referral ID Status Reason Start Date Expiration Date Visits Re quested Visits Authorized [id number] Open 07/04/2024 1 1 Reason for Visit * Reason Onset Date Comments Results 07/04/2024 Encounter Details Date Type Department Care Team (Late st Contact Info) Description 07/04/2024 Telephone [facility] [address] [place] [address] Oswaldo Serrano MD [address] [address] Results Social History Tobacco Use Types Packs/Day Years Used Date Smoking Tobacco: Never Smokeless Tobacco: Never Alcohol Use Standard Drinks/Week Comments No 0 (1 standard drink = 0.6 oz pur e alcohol) [facility] Utilities Answer Date Recorded In the [...] any clubs o r organizations such as rastafarian groups, unions, fraternal or athletic groups, or [...] Total Score - Questions 1-9 0 07/12 [facility] of Occupat ional Health - Occupational Stress [...] encounter Miscellaneous Notes * Telephone Encounter - Connie Gamez RN - 07/05/2024 12:37 PM CDT Called patient and LVM to let her know per PCP Let her know she will need a CT chest in one monthto evaluate the lung nodules detected on the CAT scan done recently at [facility]. Order entered. Thanks! * Telephone Encounter - Oswaldo Serrano MD - 07/04/2024 10:08 AM CDT Let her know she will need a CT chest in one month to evaluate the lung nodules detected on the CATscan done recently at [facility]. Order entered. Thanks! documented in this encounter Plan of Treatment Upcoming Encounters Date Type Department Care Team (Late st Contact Info) Description 10/08/2024 2:15 PM TRIM LINE WORKER Office Visit [facility] UROLOGY #2 [place] [address] Orlin Urbina, HAND III CUTTER, FISH CONSERVATIONIST #2 [place] [address] 10/18/2024 2:15 PM TRIM LINE WORKER Appointment [facility] Mammography 1 [place] [address] Oswaldo Serrano MD #[address] [address] Discharge Disposition: Discharged to home or Selfcare 11/29/2024 2:30 PM TRIM LINE WORKER Office [facility] #2 [place] [address] Oswaldo Serrano MD #[address] [address] 11/30/2024 3:00 PM TRIM LINE WORKER Office Visit [facility] - Endocrinology [facility] #2 [place] [address] Ok Jorge MD #[address] [address] Scheduled Orders Name Type Priority Associated Diagnoses Orde r Schedule CT CHEST W/O CONTRAST Imaging Routine Multiple lung nodules on CT Expected: 08/03/2024 (Approximate), Expires: 07/04/2025 documented as of this encounter Visit Diagnoses Diagnosis Multiple lung nodules on CT- Primary documented in this encounter Additional Health Concerns Assessment Noted Time PHQ-9 Depression Total Score: 0 08/09/20 23 2:56 PM CDT documented as of this encounter Care Teams Window Systems Administrator Relationship Specialty Start Date End Date Oswaldo Serrano MD #[address] [address] PCP - General Family Medicine 05/19/17 Angel Crowe DPM #[address] [address] Consulting Physician Podiatry 06/16/17 Mora Fritz Behavioral Health Navigator 06/15/18 Ok Jorge MD #[address] [address] Consulting Physician Endocrinology 05/12/22 Orlin Urbina, HAND III CUTTER, FISH CONSERVATIONIST #2 [place] [address] Nurse Practitioner Advanced Practice Nurse 11/09/22 documented as of this encounter
--- OUTSIDE RECORDS SUMMARY | 2024-10-07 00:20 | XMS_ITS | Encounter Summary ---
Author Organization [facility] Address [address] [place] [address] Phone Care Team Providers Care Jewish Thought Professor Name Role Phone Oswaldo Serrano MD Primary Care Provider [phone] Angel Crowe DPCiara Unavailable [phone] Mora Fritz Unavailable Unavailable Ok Jorge MD Unavailable Orlin Urbina APRN, DEPOSITING MACHINE OPERATOR Unavailable + [phone] Reason for Visit * Reason Onset Date Comments Hospital admission 06/13/2024 Encounter Details Date Type Department Care Team (Late st Contact Info) Description 06/13/2024 Telephone [facility] Family [facility] #2 [place] [address] Osawldo Serrano MD #[address] [address] Hospital admission Social History Tobacco Use Types Packs/Day Years Used Date Smoking Tobacco: Never Smokeless Tobacco: Never Alcohol Use Standard Drinks/Week Comments No 0 (1 standard drink = 0.6 oz pur e alcohol) [facility] Utilities Answer Date Recorded In the [...] often do you attend chur ch or yazidism services? Never 11/09/2023 Do you belong to [...] Total Score - Questions 1-9 0 07/12 [facility] of Occupat ional Health - Occupational Stress [...] place to sleep or slept in a mcc (including now)? No 11/09/2023 Education Answer Date [...] Miscellaneous Notes * Telephone Encounter - Connie Gamez, RN - 06/13/2024 12:45 PM CDT Received fax from [place] to inform Provider of transition of care: [facility] adm date:06/08/24 inpatient, dx endocarditis valve unspecified, level of care: [facility] documented in this encounter Plan of Treatment Upcoming Encounters Date Type Department Care Team (Late st Contact Info) Description 10/08/2024 2:15 PM MEDICAL DIAGNOSTIC RADIOGRAPHER Office Visit [facility] UROLOGY #2 [place] [address] Orlin Urbina APRN, DEPOSITING MACHINE OPERATOR #2 [place] [address] 10/18/2024 2:15 PM MEDICAL DIAGNOSTIC RADIOGRAPHER Appointment [facility] Mammography 1 [place] [phone] Oswaldo Serrano MD #[address] [address] Discharge Disposition: Discharged to home or Selfcare 11/29/2024 2:30 PM MEDICAL DIAGNOSTIC RADIOGRAPHER Office Visit [facility] - [place] #2 [place] [address] Oswaldo Serrano MD #[address] [address] 11/30/2024 3:00 PM MEDICAL DIAGNOSTIC RADIOGRAPHER Office Visit [facility] - [place] #2 [place] [address] Ok Jorge MD #[address] [address] documented as of this encounter Visit Diagnoses Not on filedocumented in this encounter Additional Health Concerns Assessment Noted Time PHQ-9 Depression Total Score: 0 08/09/20 23 2:56 PM CDT documented as of this encounter Care Teams Jewish Thought Professor Relationship Specialty Start Date End Date Oswaldo Serrano MD #[address] [address] PCP - General Family Medicine 8/10/17 Angel Crowe DPM #2 [facility] [address] [place] [address] Consulting Physician Podiatry 06/16/17 Mora Fritz Behavioral Health Navigator 06/15/18 Ok Jorge MD #2 [facility] [address] [place] [address] Consulting Physician Endocrinology 05/12/22 Orlin Urbina, SOIL FIELD TECHNICIAN, DEPOSITING MACHINE OPERATOR #2 [place] [address] Nurse Practitioner Advanced Practice Nurse 11/09/22 documented as of this encounter
--- OUTSIDE RECORDS SUMMARY | 2024-10-07 00:20 | XMS_ITS | Encounter Summary ---
Author Organization [email or web address] Care Team Providers Care Technical Business Systems Analyst Name Role Phone Oswaldo Serrano MD Primary Care Provider [phone] Angel Crowe DPCiara Unavailable [phone] Mora Fritz Unavailable Unavailable Ok Jorge MD Unavailable Orlin Urbina APRN, RN SANE Unavailable + [phone] Encounter Details Date Type Department Care Team (Latest Contact Info) Description 02/23/2024 Travel Social History Tobacco Use Types Packs/Day Years Used Date Smoking Tobacco: Never Smokeless Tobacco: Never Alcohol Use Standard Drinks/Week Comments No 0 (1 standard drink = 0.6 oz pur e alcohol) [facility] Utilities Answer Date Recorded In the past 12 months has [employer], gas, oil, or water company threatened to [...] Total Score - Questions 1-9 0 07/12 [facility] of Occupat ional Health - [...] place to sleep or slept in a fdc (including now)? No 11/09/2023 Education Answer Date [...] doing things Several days 02/23/2024 4:26 PM [facility] Stephanie Patrick MA Feeling down, depressed, or hopeless Several days 02/23/2024 4:26 PM [facility] Stephanie Patrick MA * Over the past 2 weeks, how often have you been bothered by any of the following problems? Question Answer Date of Assessment Author Patient Health Questionnaire -2 Score 2 02/23/2024 4:26 PM Stephanie Severino MA documented as of this encounter Plan of Treatment Upcoming Encounters Date Type Department Care Team (Late st Contact Info) Description 10/08/2024 2:15 PM SENIOR BENEFITS SPECIALIST Office Visit [facility] #[address] [place] [address] Orlin Urbina MED SPA MANAGER, RN SANE #[address] [place] [address] 10/18/2024 2:15 PM SENIOR BENEFITS SPECIALIST Appointment [facility] Mammography 1 [place] [address] Oswaldo Serrano MD #[address] [address] Discharge Disposition: Discharged to home or Selfcare 11/29/2024 2:30 PM SENIOR BENEFITS SPECIALIST Office Visit [facility] #2 [place] [address] Oswaldo Serrano MD #[address] [address] 11/30/2024 3:00 PM SENIOR BENEFITS SPECIALIST [facility] #2 [place] [address] Ok Jorge MD #[address] [address] documented as of this encounter Visit Diagnoses Not on filedocumented in this encounter Additional Health Concerns Assessment Noted Time PHQ-9 Depression Total Score: 0 08/09/20 23 2:56 PM CDT documented as of this encounter Care Teams Technical Business Systems Analyst Relationship Specialty Start Date End Date Oswaldo Serrano MD #[address] [address] PCP - General Family Medicine 05/19/17 Angel Crowe DPM #[address] [address] Consulting Physician Podiatry 06/16/17 Mora Fritz Behavioral Health Navigator 06/15/18 Ok Jorge MD #[address] [address] Consulting Physician Endocrinology 05/12/22 Orlin Urbina APRN, RN SANE #2 [place] [address] Nurse Practitioner Advanced Practice Nurse 11/09/22 documented as of this encounter
--- OUTSIDE RECORDS SUMMARY | 2024-10-07 00:20 | XMS_ITS | Encounter Summary ---
Author Organization [facility] Address [address] [place] [address] Phone Care Team Providers Care Licensed Audiologist Name Role Phone Oswaldo Serrano MD Primary Care Provider [phone] Angel Crowe DPM Unavailable Mora Fritz Unavailable Unavailable Ok Jorge MD Unavailable Orlin Urbina APRN, HARD ROCK MINER Unavailable [phone] Encounter Details Date Type Department Care Team (Late st Contact Info) Description 05/24/2024 Telephone [facility] #[address] [place] [address] [facility]aldo Serrano MD [facility] [id number] Social History Tobacco Use Types Packs/Day Years Used Date Smoking Tobacco: Never Smokeless Tobacco: Never Alcohol Use Standard Drinks/Week Comments No 0 (1 standard drink = 0.6 oz pur e alcohol) [facility] Utilities Answer Date Recorded In the past [...] often do you attend chur ch or nondenominational services? Never 11/09/2023 Do you belong to any clubs o r organizations such as alevism groups, unions, fraternal or athletic groups, or [...] Total Score - Questions 1-9 0 07/12 [facility] of Occupat ional Health - [...] place to sleep or slept in a group home (including now)? No 11/09/2023 Education Answer [...] Encounter - Oswaldo Serrano MD - 05/25/2024 8:31 AM CDT DONE. documented in this encounter Plan of Treatment Upcoming Encounters Date Type Department Care Team (Late st Contact Info) Description 10/08/2024 2:15 PM PRIMER CHARGING TOOL SETTER Office Visit [facility] UROLOGY #2 [place] [address] Orlin Urbina, SUPPORT DBA, HARD ROCK MINER #2 [place] [address] 10/18/2024 2:15 PM PRIMER CHARGING TOOL SETTER [facility]ment [facility] Mammography 1 [place] [address] Oswaldo Serrano MD #[address] [place] [address] Discharge Disposition: Discharged to home or Selfcare 11/29/2024 2:30 PM PRIMER CHARGING TOOL SETTER Office Visit [facility] #2 [place] [address] Oswaldo Serrano MD #[address] [address] 11/30/2024 3:00 PM PRIMER CHARGING TOOL SETTER Office Visit [facility] - [place] #2 [place] [address] Ok Jorge MD #[address] [phone] documented as of this encounter Visit Diagnoses Not on filedocumented in this encounter Additional Health Concerns Assessment Noted Time PHQ-9 Depression Total Score: 0 08/09/20 23 2:56 PM CDT documented as of this encounter Care Teams Licensed Audiologist Relationship Specialty Start Date End Date Oswaldo Serrano MD #[address] [address] PCP - General Family Medicine 05/19/17 Angel Crowe DPM #[address] [address] Consulting Physician Podiatry 06/16/17 Mora Fritz [place] Behavioral Health Navigator 06/15/18 Ok Jorge MD #[address] [address] Consulting Physician Endocrinology 05/12/22 Orlin Urbina APRN, HARD ROCK MINER #2 [place] [address] Nurse Practitioner Advanced Practice Nurse 11/09/22 documented as of this encounter
--- OUTSIDE RECORDS SUMMARY | 2024-10-07 00:20 | XMS_ITS | Encounter Summary ---
Author Organization [facility] Address [address] [place] [address] Phone Care Team Providers Care Finnish Rubber Name Role Phone Oswaldo Serrano MD Primary Care Provider [phone] Angel Crowe DPM Unavailable Mora Fritz Unavailable Unavailable Ok Jorge MD Unavailable Orlin Urbina APRN, ORACLE APEX DEVELOPER Unavailable Reason for Visit * Reason Onset Date Comments Back Pain 06/28/2024 Encounter Details Date Type Department Care Team (Late st Contact Info) Description 06/28/2024 Nurse Triage [facility] [address] [place] [address] Oswaldo Serrano MD #[address] [address] Back Pain Social History Tobacco Use Types Packs/Day Years Used Date Smoking Tobacco: Never Smokeless Tobacco: Never Alcohol Use Standard Drinks/Week Comments No 0 (1 standard drink = 0.6 oz pur e alcohol) [facility] Utilities Answer Date Recorded In the past [...] often do you attend chur ch or synagogue services? Never 11/09/2023 Do you belong to any clubs o r organizations such as worship groups, unions, fraternal or athletic groups, or [...] Total Score - Questions 1-9 0 07/[address] [facility] of Occupat ional Health - Occupational Stress [...] place to sleep or slept in a long-term (including now)? No 11/09/2023 Education Answer Date [...] encounter Miscellaneous Notes * Telephone Encounter - Stephanie Zeng RN - 06/28/2024 9:14 AM CDT SITUATION: Back pain BACKGROUND: SAWYER Dobbs verified calling. Peg Rice (PRD verified) added onto the line by Dilia Burgos has a follow up visit scheduled today at 3pm. Was in emergency department a couple of days ago and diagnosed with a viral infection. Had been between hospital and rehabilitation facility and emergency department. Tremors present since while in hospital. ASSESSMENT: Symptom Description / Location: Loertta today not feeling well today Back pain today. Back pain is in lower right side of back Denies vomiting Back pain began last night Has been sleeping more over the last couple of days. Loose stools dark in color over the last few days. Last bowel movement was yesterday morning Does push up off bed when trying to get up States Loretta is weak and heart is pumping at 30% Did have episode of urination this morning. Does have incontinence Believes back pain was a sudden onset Abdominal pain present Pain: Severe Fever: Last temperature: 100.4 at 0200. 98.9 this morning Treatment / Response: Tylenol, Nortriptyline RECOMMENDATION: Caller agreeable to disposition: go to ED now. States will take to [facility] See care advice and disposition for Guideline. First positive answer recorded, all responses to prior questions were negative. If symptoms increase, change or if new symptoms develop, call your health care provider or call back. Recommendations were based on caller information and is not a diagnosis. Verified and reviewed all triage information with caller. Reason for Disposition SEVERE back pain of sudden onset and age > 60 years Protocols used: Back Pain-A-[place] documented in this encounter Plan of Treatment Upcoming Encounters Date Type Department Care Team (Late st Contact Info) Description 10/08/2024 2:15 PM TENNIS INSTRUCTOR Office Visit [facility] GROUP UROLOGY #2 [place] [address] Orlin Urbina, TEACHER HEARING IMPAIRED, ORACLE APEX DEVELOPER #2 [place] [address] 10/18/2024 2:15 PM TENNIS INSTRUCTOR Appointment [facility] Mammography 1 [place] [address] Oswaldo Serrano MD #[address] [address] Discharge Disposition: Discharged to home or Selfcare 11/29/2024 2:30 PM TENNIS INSTRUCTOR Office Visit [facility] Family Medicine [facility] #2 [place] [address] Oswaldo Serrano MD #[address] [place] [address] 11/30/2024 3:00 PM TENNIS INSTRUCTOR Office Visit [facility] Endocrinology [facility] #2 [place] [address] Ok Jorge MD #[address] [address] documented as of this encounter Visit Diagnoses Not on filedocumented in this encounter Additional Health Concerns Assessment Noted Time PHQ-9 Depression Total Score: 0 08/09/20 23 2:56 PM CDT documented as of this encounter Care Teams Finnish Rubber Relationship Specialty Start Date End Date Oswaldo Serrano MD #[address] [address] PCP - General Family Medicine 05/19/17 Angel Crowe DPM #[address] [address] Consulting Physician Podiatry 06/16/17 Mora Fritz [place] Behavioral Health Navigator 06/15/18 Ok Jorge MD #[address] [address] Consulting Physician Endocrinology 05/12/22 Orlin Urbina, JOHN, ORACLE APEX DEVELOPER #2 [place] [address] Nurse Practitioner Advanced Practice Nurse 11/09/22 documented as of this encounter
--- OUTSIDE RECORDS SUMMARY | 2024-10-07 00:20 | XMS_ITS | Encounter Summary ---
Author Organization [facility] Address [address] [place] [address] Phone Care Team Providers Care Vp Site Name Role Phone Oswaldo Serrano MD Primary Care Provider [phone] Angel Crowe DPM Unavailable Mora Fritz Unavailable Unavailable Ok Jogre MD Unavailable Orlin Urbina APRN, VARNISH MELTER HELPER Unavailable + [phone] Encounter Details Date Type Department Care Team (Late st Contact Info) Description 02/27/2024 Telephone [facility] #[address] [place] [address] [facility]aldo [facility]errano MD [facility] [id number] Social History Tobacco Use Types Packs/Day Years Used Date Smoking Tobacco: Never Smokeless Tobacco: Never Alcohol Use Standard Drinks/Week Comments No 0 (1 standard drink = 0.6 oz pur e alcohol) [facility] Utilities Answer Date Recorded In the [...] Total Score - Questions 1-9 0 07/12 [facility] of Occupat ional Health - Occupational Stress [...] Telephone Encounter - Oswaldo Serrano MD - 02/27/2024 6:48 AM CDT DONE. documented in this encounter Plan of Treatment Upcoming Encounters Date Type Department Care Team (Late st Contact Info) Description 10/08/2024 2:15 PM SALES AND MERCHANDISING ASSOCIATE Office Visit [facility]Y #2 [place] [address] Orlin Urbina, SECTION LABORER, VARNISH MELTER HELPER #2 [place] [address] 10/18/2024 2:15 PM SALES AND MERCHANDISING ASSOCIATE Appointment [facility] Mammography 1 [place] [address] Oswaldo Serrano MD #[address] [place] [address] Discharge Disposition: Discharged to home or Selfcare 11/29/2024 2:30 PM SALES AND MERCHANDISING ASSOCIATE Office Visit [facility] #2 [place] [address] Oswaldo Serrano MD #[address] [address] 11/30/2024 3:00 PM SALES AND MERCHANDISING ASSOCIATE Office Visit [facility] - [place] #2 [place] [address] Ok Jorge MD #[address] [address] documented as of this encounter Visit Diagnoses Not on filedocumented in this encounter Additional Health Concerns Assessment Noted Time PHQ-9 Depression Total Score: 0 08/09/20 23 2:56 PM CDT documented as of this encounter Care Teams Vp Site Relationship Specialty Start Date End Date Oswaldo Serrano MD #[address] [address] PCP - General Family Medicine 05/19/17 Angel Crowe DPM #[address] [address] Consulting Physician Podiatry 06/16/17 Mora Fritz [place] Behavioral Health Navigator 06/15/18 Ok Jorge MD #[address] [address] Consulting Physician Endocrinology 05/12/22 Orlin Urbina APRN, VARNISH MELTER HELPER #2 [place] [address] Nurse Practitioner Advanced Practice Nurse 11/09/22 documented as of this encounter
--- OUTSIDE RECORDS SUMMARY | 2024-10-07 00:20 | XMS_ITS | Encounter Summary ---
Author Organization [facility] Address [address] [place] [address] Phone Care Team Providers Care Clamp Jig Assembler Name Role Phone Oswaldo Serrano MD Primary Care Provider [phone] Angel Crowe DPM Unavailable [phone] Mora Fritz Unavailable Unavailable Ok Jorge MD Unavailable Orlin Urbina APRN, MENTAL HEALTH ASSOCIATE Unavailable + [phone] Reason for Visit * Reason Comments Post-Hospital Follow-up Encounter Details Date Type Department Care Team (Late st Contact Info) Description 08/10/2024 2:00 PM CDT [facility] Visit [facility] [address] [place] [phone] Connor Yuan APRN, MENTAL HEALTH ASSOCIATE [address] [address] HFrEF (heart failure with reduced ejection fraction) ([facility]) (Primary Dx); Thrombus of left atrial appendage; Chronic bacterial endocarditis; Agitation; Microscopic hematuria Discharge Disposition: Discharged to home or Selfcare Social History Tobacco Use Types Packs/Day Years Used Date Smoking Tobacco: Never Smokeless Tobacco: Never Tobacco Cessation:Counseling Given: Yes Alcohol Use Standard Drinks/Week Comments No 0 (1 standard drink = 0.6 oz pur e alcohol) [facility] Utilities Answer Date Recorded In the past 12 months has e [employer], gas, oil, or water [employer] threatened to shut off services in your [...] often do you attend chur ch or denominational services? Never 11/09/2023 Do you belong to any clubs o r organizations such as congregation groups, unions, fraternal or athletic groups, or [...] Score - Questions 1-9 0 11/0 10/2023 [facility] [place] of Occupat ional Health - Occupational Stress [...] place to sleep or slept in a fci (including now)? No 11/09/2023 Education Answer Date [...] Little interest or pleasure in doing things Not at all 08/10/2024 1:59 PM CDT Trudi Augustin , DOMINICK Feeling down, depressed, or hopeless Not at all 08/10/2024 1:59 PM CDT Trudi Augustin CMA * Over the past 2 weeks, how often have you been bothered by any of the following problems? Question Answer Date of Assessment Author Patient Health Questionnaire -2 Score 0 08/10/2024 1:59 PM CDT Trudi Augustin CMA documented as of this encounter Progress Notes * Sebastian, Tina Diana CMA - 08/10/2024 2:00 PM CDT Loretta Penn, 63 y.o., female is here for Post-Hospital Follow-up Medication Refills: Patient reports/denies need for medication refills. Orders Pended: no Requested Prescriptions No prescriptions requested or ordered in this encounter Home Medications Medication Sig Start Date End Date Taking? Authorizing Provider albuterol 108 (90 Base) MCG/ACT Aerosol Solution INHALE 1 TO 2 PUFFS BY MOUTH EVERY 4 HOURS NEEDED FOR COUGH 08/05/24 Yes Oswaldo Serrano MD Blood Glucose Monitoring Suppl Device Test blood glucose 1x daily, E11.9, insulin dependent 12/30/22Yes Ok Jorge MD Blood Glucose Monitoring Suppl Device Test blood glucose 4 times daily. E11.9, insulin dependent 12/19/19 Yes Ok Jorge MD carvedilol (COREG) 25 MG Tablet 25 mg 2 times daily. 05/06/17 Yes Nica Muniz MD Continuous Blood Gluc Contact Centre Supervisor (Dexcom G7 Contact Centre Supervisor) Device 1 Each by Does not apply route 4 times daily. Use to check glucose 4x daily. 04/29/23 Yes Ok Jorge MD Continuous Blood Gluc Sensor (Dexcom G6 Sensor) Misc 10/05/22 Nica Muniz MD Continuous Blood Gluc Sensor (Dexcom G7 Sensor) Misc 1 Each by Does not apply route every 10 days. Change sensor every 10 days. 12/12/23 Yes Ok Jorge MD Continuous Blood Gluc Transmit (Dexcom G6 Transmitter) Misc 12/03/21 Yes Nica Muniz MD Cyanocobalamin (B-12) 500 MCG Tablet Take 1 Tablet by mouth daily. 11/14/22 Yes Oswaldo Serrano MD Dapagliflozin Propanediol (Farxiga) 10 MG Tablet Take by mouth. 06/01/22 Yes Nica Muniz MD dilTIAZem (CARDIZEM) 30 MG Tablet TK 1 T PO TID 04/28/17 Yes Nica Muniz MD docusate sodium (COLACE) 100 MG Capsule Take 1 Capsule by mouth 2 times daily. 05/18/24 Yes Oswaldo Serrano MD Entresto 24-26 MG Tablet 09/11/21 Yes Nica Muniz MD escitalopram (LEXAPRO) 10 MG Tablet TAKE 1 TABLET BY MOUTH DAILY 06/18/24 Yes Oswaldo Serrano MD fluticasone (FLONASE) 50 MCG/ACT Suspension 1-2 Sprays by Nasal route daily. Use in each nostril asdirected. 02/01/23 Yes Oswaldo Serrano MD furosemide (LASIX) 40 MG Tablet TAKE 1 TABLET BY MOUTH DAILY 04/02/24 Yes Connor Yuan APRN, CNP Glucose Blood (OneTouch Verio) Strip 4 times a day 01/04/24 Yes Ok Jorge MD Glucose Blood Strip Use to test blood glucose 1x daily. E11.9, insulin dependent 12/15/23 Yes Ok Jorge MD insulin glargine (Basaglar KwikPen) 100 UNIT/ML Solution Pen-injector 18 Units by Subcutaneous route every morning. 02/09/24 Yes Ok Jorge MD Insulin Pen Needle (BD Pen Needle Trina 2nd Gen) 32G X 4 MM Misc USE TO INJECT FOUR TIMES DAILY 10/11/23 Yes Ok Jorge MD Insulin Syringe-Needle U-100 (TRUEPLUS INSULIN SYRINGE) 31G X 5/16 0.5 ML Misc USE 4 TIMES DAILY 12/19/19 Yes Ok Jorge MD Lancets Misc 1 Lancet by Does not apply route daily. Test blood glucose 1x daily. E11.9, insulin dependent 12/30/22 Yes Ok Jorge MD Lancets Misc Test four times daily. E11.9, insulin dependent 12/19/19 Yes Ok Jorge MD levothyroxine (SYNTHROID) 75 MCG Tablet Take 1 Tablet by mouth every morning. 08/28/23 Yes Oswaldo Serrano MD nortriptyline (PAMELOR) 10 MG Capsule Take 1 Capsule by mouth nightly. 05/18/24 Yes Oswaldo Serrano MD NovoLOG FlexPen 100 UNIT/ML Solution Pen-injector INJECT 16-13-10 UNITS BEFORE EACH MEAL -- ISF OF 1:30 IF GREATER THAN 140MG/DL UP TO 70 UNITS PER DAY 07/18/23 Yes Ok Jorge MD omeprazole (PriLOSEC) 20 MG CAPSULE DELAYED RELEASE TAKE 1 CAPSULE BY MOUTH DAILY 08/07/24 Yes Oswaldo Serrano MD potassium chloride SA (KLORCON M) 20 MEQ Tablet Controlled Release Take 1 Tablet by mouth daily. 01/20/24 Yes Oswaldo Serrano MD rivaroxaban (Xarelto) 20 MG Tablet Take 20 mg by mouth daily (with dinner). Take with food. Yes Provider, MD Nica There are no discontinued medications. I have reviewed the home medication list with the patient and have reconciled discrepancies. The list is accurate to the best of my knowledge. Smoking Status: Social History Tobacco Use Smoking status: Never Smokeless tobacco: Never Vaping Use Vaping status: Never Used Substance Use Topics Alcohol use: No Drug use: No Smoking Cessation Counseling Given: yes Health Care Maintenance: Health Maintenance Due Topic Date Due Diabetes: Foot Exam Never done Zoster Immunization (1 of 2) Never done Respiratory Syncytial Virus (RSV) Immunization (Adult) (1 - Risk 60-74 years 1- dose series) Never done Diabetes: Eye Exam 02/24/2024 Influenza Immunization (1) 06/10/2024 SARS-COV-2 Immunization ( season) 2024 Diabetes: Nephropathy Screening 11/09/2024 Orders Pended: no The following BPA's have been addressed with the patient today: BMI and Flu * Trudi Augustin CMA - 08/10/2024 2:00 PM CDT Urine sample was collected from patient for a UA w/ culture. Patient verbalized understanding of why testing is needed and gave consent. * Connor Yuan APRN, MENTAL HEALTH ASSOCIATE - 08/10/2024 2:00 PM CDT Subjective: Subjective CC: F/U bacterial endocarditis, HFrEF, agitation, MAULIK thrombus Loretta Penn is a 63-year-old female who presents the office today to follow-up after recent hospitalization for bacterial endocarditis, heart failure with reduced ejection fraction, agitation, and left atrial appendage thrombus. Exam limited by intellectual disability the patient. Quite agitated in the office today yelling. Upset that she has to see so many doctors. She was originally admitted with the methicillin-susceptible Staph aureus bacteremia from UTI. Likely hematogenous spread and started have bacterial endocarditis. Had a broken pacer wire in the pulmonary vein. Thought to be too dangerous to extracted. Had a left atrial appendage thrombus. Tricuspid valve vegetation. She is asymptomatic. There was a reduced ejection fraction. The rest of the AICD was removed.Currently on antibiotics. No fever, chills, chest pain, shortness a breath. Patient's sisters are getting [id number]. They would like a urine checked because of the agitation. States she did not sleep much last night. Has MR ADL deficit of feeding, toileting, grooming. Needs a power mobilitydevice for longer distances. Seeing Infectious Disease and Cardiology. The history is provided by the patient, medical records and a relative. The history is limited by adevelopmental delay. No group burner machine was used. Review of Systems Constitutional: Negative for chills, fatigue and fever. HENT: Negative for congestion, ear discharge, ear pain, postnasal drip, sinus pressure, sinus pain,sore throat and trouble swallowing. Eyes: Negative for photophobia, pain and discharge. Respiratory: Negative for cough, chest tightness, shortness of breath and wheezing. Cardiovascular: Negative for chest pain and palpitations. Gastrointestinal: Negative for abdominal pain, constipation, diarrhea, nausea and vomiting. Genitourinary: Negative for dysuria, flank pain, frequency, hematuria and urgency. Musculoskeletal: Positive for gait problem. Negative for arthralgias, back pain and myalgias. Skin: Negative for rash and wound. Neurological: Negative for dizziness, seizures, syncope, numbness and headaches. Psychiatric/Behavioral: Positive for agitation. Negative for suicidal ideas. Allergies Allergies Allergen Reactions Sulfa Antibiotics Unknown and Hives Sulfamethoxazole-Trimethoprim Hives Medications Current Outpatient Medications: albuterol 108 (90 Base) MCG/ACT Aerosol Solution, INHALE 1 TO 2 PUFFS BY MOUTH EVERY 4 HOURS NEEDED FOR COUGH, Disp: 18 g, Rfl: 0 apixaban (ELIQUIS) 5 MG Tablet, Take 5 mg by mouth 2 times daily., Disp: , Rfl: Blood Glucose Monitoring Suppl Device, Test blood glucose 1x daily, E11.9, insulin dependent, Disp:1 Each, Rfl: 0 Blood Glucose Monitoring Suppl Device, Test blood glucose 4 times daily. E11.9, insulin dependent, Disp: 1 Each, Rfl: 0 Continuous Blood Gluc Contact Centre Supervisor (Dexcom G7 Contact Centre Supervisor) Device, 1 Each by Does not apply route 4 times daily. Use to check glucose 4x daily., Disp: 1 Each, Rfl: 0 Continuous Blood Gluc Sensor (Dexcom G6 Sensor) Misc, , Disp: , Rfl: Continuous Blood Gluc Sensor (Dexcom G7 Sensor) Misc, 1 Each by Does not apply route every 10 days.Change sensor every 10 days., Disp: 9 Each, Rfl: 1 Continuous Blood Gluc Transmit (Dexcom G6 Transmitter) Misc, , Disp: , Rfl: Cyanocobalamin (B-12) 500 MCG Tablet, Take 1 Tablet by mouth daily., Disp: 90 Tablet, Rfl: 3 dilTIAZem (CARDIZEM) 30 MG Tablet, TK 1 T PO TID, Disp: , Rfl: 0 docusate sodium (COLACE) 100 MG Capsule, Take 1 Capsule by mouth 2 times daily., Disp: 60 Capsule, Rfl: 2 Entresto 24-26 MG Tablet, , Disp: , Rfl: escitalopram (LEXAPRO) 10 MG Tablet, TAKE 1 TABLET BY MOUTH DAILY, Disp: 90 Tablet, Rfl: 1 fluticasone (FLONASE) 50 MCG/ACT Suspension, 1-2 Sprays by Nasal route daily. Use in each nostril as directed., Disp: 1 g, Rfl: 3 furosemide (LASIX) 40 MG Tablet, TAKE 1 TABLET BY MOUTH DAILY, Disp: 90 Tablet, Rfl: 2 Glucose Blood (OneTouch Verio) Strip, 4 times a day, Disp: 400 Each, Rfl: 3 Glucose Blood Strip, Use to test blood glucose 1x daily. E11.9, insulin dependent, Disp: 100 Strip,Rfl: 3 insulin glargine (Basaglar KwikPen) 100 UNIT/ML Solution Pen-injector, 18 Units by Subcutaneous route every morning., Disp: 15 mL, Rfl: 1 Insulin Pen Needle (BD Pen Needle Trina 2nd Gen) 32G X 4 MM Misc, USE TO INJECT FOUR TIMES DAILY, Disp: 400 Each, Rfl: 3 Insulin Syringe-Needle U-100 (TRUEPLUS INSULIN SYRINGE) 31G X 5/16 0.5 ML Misc, USE 4 TIMES DAILY,Disp: 400 Each, Rfl: 3 Lancets Misc, 1 Lancet by Does not apply route daily. Test blood glucose 1x daily. E11.9, insulin dependent, Disp: 100 Lancet, Rfl: 3 Lancets Misc, Test four times daily. E11.9, insulin dependent, Disp: 400 Lancet, Rfl: 3 levothyroxine (SYNTHROID) 75 MCG Tablet, Take 1 Tablet by mouth every morning., Disp: 90 Tablet, Rfl: 3 LORazepam (ATIVAN) 0.5 MG Tablet, Take 1 Tablet by mouth every 8 hours as needed for Anxiety or Other (agitation)., Disp: 30 Tablet, Rfl: 0 metoprolol Succinate (TOPROL-XL) 100 MG TABLET SR 24 HR, Take 100 mg by mouth daily., Disp: , Rfl: nortriptyline (PAMELOR) 10 MG Capsule, Take 1 Capsule by mouth nightly., Disp: 90 Capsule, Rfl: 1 NovoLOG FlexPen 100 UNIT/ML Solution Pen-injector, INJECT 16-13-10 UNITS BEFORE EACH MEAL -- ISF OF1:30 IF GREATER THAN 140MG/DL UP TO 70 UNITS PER DAY, Disp: 75 mL, Rfl: 1 omeprazole (PriLOSEC) 20 MG CAPSULE DELAYED RELEASE, TAKE 1 CAPSULE BY MOUTH DAILY, Disp: 90 Capsule, Rfl: 1 potassium chloride SA (KLORCON M) 20 MEQ Tablet Controlled Release, Take 1 Tablet by mouth daily., Disp: 90 Tablet, Rfl: 1 Past Medical History Past Medical History Positives Diagnosis Date Atrial fibrillation and flutter (HCC) CHF, chronic (HCC) Diabetes mellitus (HCC) Hepatitis C Hypertension Pacemaker Past Surgical History Past Surgical History: Procedure Laterality Date APPENDECTOMY APPENDECTOMY HC DEFIB CARD RESYNCHRONIZATION 1/DF4 IS4 EA/1 TOOTH EXTRACTION All of her teeth WISDOM TOOTH EXTRACTION Family History Family History Problem Relation Age of Onset Diabetes Mother Hypertension Mother Heart Disease Mother Diabetes Father Heart Disease Father Heart Attack Father Hypertension Father Social History Social History Tobacco Use Smoking status: Never Smokeless tobacco: Never Vaping Use Vaping status: Never Used Substance Use Topics Alcohol use: No Drug use: No Objective: Objective Physical Exam Vitals and nursing note reviewed. Constitutional: General: She is not in acute distress. Appearance: She is well-developed. She is obese. She is not diaphoretic. HENT: Head: Normocephalic and atraumatic. Right Ear: External ear normal. Left Ear: External ear normal. Nose: Nose normal. Eyes: General: Right eye: No discharge. Left eye: No discharge. Conjunctiva/sclera: Conjunctivae normal. Pupils: Pupils are equal, round, and reactive to light. Neck: Trachea: No tracheal deviation. Cardiovascular: Rate and Rhythm: Normal rate and regular rhythm. Heart sounds: Normal heart sounds. No murmur heard. No friction rub. No gallop. Pulmonary: Effort: Pulmonary effort is normal. No respiratory distress. Breath sounds: Normal breath sounds. Abdominal: General: Bowel sounds are normal. Palpations: Abdomen is soft. Tenderness: There is no abdominal tenderness. Musculoskeletal: General: No deformity. Normal range of motion. Cervical back: Normal range of motion and neck supple. Lymphadenopathy: Cervical: No cervical adenopathy. Skin: General: Skin is warm and dry. Coloration: Skin is not pale. Findings: No rash. Neurological: Mental Status: She is alert and oriented to person, place, and time. Psychiatric: Behavior: Behavior is agitated and aggressive (Verbal). Thought Content: Thought content normal. Judgment: Judgment normal. Vitals: Assessment and Plan Assessment & Plan See Diagnoses, Orders, Follow-up, and Instructions 1. HFrEF (heart failure with reduced ejection fraction) (HCC) 2. Thrombus of left atrial appendage 3. Chronic bacterial endocarditis 4. Agitation - POCT UA AUTOMATED W/O MICRO - LORazepam (ATIVAN) 0.5 MG Tablet; Take 1 Tablet by mouth every 8 hours as needed for Anxiety or Other (agitation). Dispense: 30 Tablet; Refill: 0 - URINALYSIS REFLEX IF INDICATED BY ABNORMAL RESULTS; Future - CULTURE, URINE; Future 5. Microscopic hematuria - CULTURE, URINE; Future Heart failure with reduced ejection fraction on Arb/NI, beta-danny. SGLT2 inhibitor was held at [place] due to recurrent UTIs. On Eliquis for thrombus of the left atrial appendage. Doing good. On antibiotics. Seeing Infectious Disease and Cardiology. No symptoms of decompensation today. Wearing LifeVest. Urinalysis negative. Small amount of lorazepam p.r.n. for anxiety or agitation. Advised willsend urine for culture. Advised regarding serious illness and need for advanced care planning possible increase in level of care. Follow-up in office with PCP in 3 months. I discussed all new medications and potential side effects or risks associated with them. Patient is to contact our office with any concerns. Patient instructions and educational materials were given to the patient. Patient (or patient customer relations representative) demonstrates verbal understanding of instructions given. Patient should follow up with their PCP for general health maintenance needs. Patient should contact our office if their problems persist or call 911/go the to ER if issues become more persistent. If any referrals have been made, patient should contact our office with in 3-5 days if they have not heard anything from our referral team or the referring physician. Documentation for this visit on 08/10/24 was completed using a template. I have seen and examined the patient. Everything documented was personally performed at this visit with the necessary additions, deletions and changes made as appropriate. Note: Portions of this chart may have been completed with voice recognition software and may contain slight errors unrecognizable by the users. This would in no way affect the patient's care and is meant to improve length and quality of medical decision making and history taking. documented in this encounter Plan of Treatment Upcoming Encounters Date Type Department Care Team (Late st Contact Info) Description 10/08/2024 2:15 PM THERMOMETER PRODUCTION WORKER Office Visit [facility] #2 [place] [phone] Orlin Urbina APRN, MENTAL HEALTH ASSOCIATE [address] [place] [address] 10/18/2024 2:15 PM THERMOMETER PRODUCTION WORKER Appointment [facility] [address] [place] [address] Oswaldo Serrano MD #2 [facility] [address] [place] [address] Discharge Disposition: Discharged to home or Selfcare 11/29/2024 2:30 PM THERMOMETER PRODUCTION WORKER Office Visit [facility] - [place] #[address] [facility] [address] Oswaldo Serrano MD #2 [facility] [address] [place] [address] 11/30/2024 3:00 PM THERMOMETER PRODUCTION WORKER Office Visit [facility] - Endocrinology - [place] #2 [facility] [place] [address] Ok Jorge MD #[address] [place] [address] documented as of this encounter Procedures Procedure Name Priority Date/Time Associated Diagnosis Comments URINALYSIS REFLEX IF INDICATED BY ABNORMAL RESULTS Routine 08/10/2024 4:18 PM CDT Agitation CULTURE, URINE Routine 08/10/2024 4:18 PM CDT Agitation Microscopic hematuria POCT UA AUTOMATED W/O MICRO Routine 08/10/2024 2:38 PM CDT Agitation documented in this encounter Results * CULTURE, URINE (08/10/2024 4:18 PM CDT) CULTURE RESULTS Mixed Growth of One or More Distal Urethral Contaminants 08/11/2024 5:32 PM CDT [facility] Culture URINE SPECIMEN COLLECTION, CLEAN CATCH / Unknown Non-Phlebotomy Collection / Unknown 08/10/2024 4:18 PM CDT 08/10/2024 4:18 PM CDT Connor Yuan GATE PERSON, MENTAL HEALTH ASSOCIATE MICROBIOLOGY - G ENERAL ORDERABLES Final Result [facility] [address] [place] [address], * (ABNORMAL) URINALYSIS REFLEX IF INDICATED BY ABNORMAL RESULTS (08/10/2024 4:18 PM CDT) SPECIFIC GRAVITY 1.010 1.003 - 1.030 08/10/2024 5:09 PM CDT [facility] URINE PH 5.0 5.0 - 9.0 08/10/2024 5:09 PM CDT [facility] WBC ESTERASE Negative Negative 08/10/2024 5:09 PM CDT [facility] NITRITE Negative Negative 08/10/2024 5:09 PM CDT [facility] PROTEIN, RANDOM URINE Negative Negative 08/10/2024 5:09 PM CDT [facility] URINE GLUCOSE, QUAL 1000 mg/dL(A) Negative 08/10/2024 5:09 PM CDT [facility] URINE KETONES Negative Negative 08/10/2024 5:09 PM CDT [facility] UROBILINOGEN Normal Normal mg/dL 08/10/2024 5:09 PM CDT [facility] URINE BLOOD 50 /uL(A) Negative alec/ul 08/10/2024 5:09 PM CDT [facility] URINALYSIS COLOR Yellow 08/10/20 24 5:09 PM CDT [facility] URINALYSIS CLARITY Clear 08/10/2024 5:09 PM CDT [facility] WBC (Urine) Negative Negative, 0-5 /hpf 08/10/2024 5:09 PM CDT [facility] URINE RBC'S 0-2 Negative, 0-2 /hpf 08/10/2024 5:09 PM CDT [facility] EPITHELIAL CELLS Negative /lpf 08/10/20 24 5:09 PM CDT [facility] BACTERIA, URINE Negative Negative /hpf 08/10/2024 5:09 PM CDT [facility] Urine URINE SPECIMEN COLLECTION, CLEAN CATCH / Unknown Non-Phlebotomy Collection / Unknown 08/10/2024 4:18 PM CDT 08/10/2024 4:18 PM CDT Connor Yuan APRN, CNP URINE ORDERABLES Final Result [facility] #[address] [place] [address] * (ABNORMAL) POCT UA AUTOMATED W/O MICRO [...] OF CARE TE STING (MANUAL) Final Result documented in this encounter Visit Diagnoses Diagnosis HFrEF (heart failure with reduced ejection fraction) (HCC)- Primary Thrombus of left atrial appendage Other ill-defined heart disease Chronic bacterial endocarditis Acute and subacute bacterial endocarditis Agitation Other and unspecified special symptom or syndrome, not elsewhere classified Microscopic hematuria documented in this encounter Additional Health Concerns Assessment Noted Time PHQ-9 Depression Total Score: 0 08/10/20 24 1:59 PM CDT documented as of this encounter Care Teams Clamp Jig Assembler Relationship Specialty Start Date End Date Oswaldo Serrano MD #[address] [address] PCP - General Family Medicine 05/19/17 Angel Crowe DPM #2 [facility] [address] [place] [address] Consulting Physician Podiatry 06/16/17 Mora Fritz [place] Behavioral Health Navigator 06/15/18 Ok Jorge MD #[address] [address] Consulting Physician Endocrinology 05/12/22 Orlin Urbina, GATE PERSON, MENTAL HEALTH ASSOCIATE #[address] [place] [address] Nurse Practitioner Advanced Practice Nurse 11/09/22 documented as of this encounter
--- OUTSIDE RECORDS SUMMARY | 2024-10-07 00:20 | XMS_ITS | Encounter Summary ---
Author Organization [facility] Address [address] [place] [address] Phone Care Team Providers Care Department Director Name Role Phone Oswaldo Serrano MD Primary Care Provider [phone] Angel Crowe DPM Unavailable Mora Fritz Unavailable Unavailable Ok Jorge MD Unavailable Orlin Urbina APRN, PRESS OFFBEARER Unavailable + [phone] Encounter Details Date Type Department Care Team (Late st Contact Info) Description 06/12/2024 Telephone [facility] [address] [place] [address] Oswaldo Serrano MD [facility] [id number] Social History Tobacco Use Types Packs/Day Years Used Date Smoking Tobacco: Never Smokeless Tobacco: Never Alcohol Use Standard Drinks/Week Comments No 0 (1 standard drink = 0.6 oz pur e alcohol) [facility] Utilities Answer Date Recorded In the [...] Total Score - Questions 1-9 0 07/12 [facility] - Occupational [...] place to sleep or slept in a assisted (including now)? No 11/09/2023 Education Answer Date [...] Telephone Encounter - Oswaldo Serrano MD - 06/12/2024 5:54 PM CDT DONE. documented in this encounter Plan of Treatment Upcoming Encounters Date Type Department Care Team (Late st Contact Info) Description 10/08/2024 2:15 PM HEAVY CLEANER Office Visit [facility] [place] [facility] #2 [place] [phone] Orlin Urbina, INSULATION CUPOLA CHARGER, PRESS OFFBEARER #2 [place] [address] 10/18/2024 2:15 PM HEAVY CLEANER Appointment [facility] Mammography 1 [place] [phone] Oswaldo Serrano MD #[address] [place] [address] Discharge Disposition: Discharged to home or Selfcare 11/29/2024 2:30 PM HEAVY CLEANER Office Visit [facility] #2 [place] [address] Oswaldo Serrano MD #[address] [address] 11/30/2024 3:00 PM HEAVY CLEANER Office Visit [facility] - [place] #2 [place] [phone] Ok Jorge MD #[address] [phone] documented as of this encounter Visit Diagnoses Not on filedocumented in this encounter Additional Health Concerns Assessment Noted Time PHQ-9 Depression Total Score: 0 08/09/20 23 2:56 PM CDT documented as of this encounter Care Teams Department Director Relationship Specialty Start Date End Date Oswaldo Serrano MD #[address] [address] PCP - General Family Medicine 05/19/17 Angel Crowe DPM #[address] [address] Consulting Physician Podiatry 06/16/17 Mora Fritz [place] Behavioral Health Navigator 06/15/18 Ok Jorge MD #[address] [address] Consulting Physician Endocrinology 05/12/22 Orlin Urbina APRN, PRESS OFFBEARER #2 [place] [address] Nurse Practitioner Advanced Practice Nurse 11/09/22 documented as of this encounter
--- OUTSIDE RECORDS SUMMARY | 2024-10-07 00:20 | XMS_ITS | Encounter Summary ---
Author Organization [facility] Address [address] [place] [address] Phone Care Team Providers Care Bull Fiddle Player Name Role Phone Oswaldo Serrano MD Primary Care Provider [phone] Angel Crowe DPM Unavailable [phone] Mora Fritz Unavailable Unavailable Ok Jorge MD Unavailable Orlin Urbina APRN, WOOD GRINDER Unavailable + [phone] Reason for Referral * Radiology Services (Routine) - Closed Specialty Diagnoses / Procedures Referred By Contac t Referred To Contact Radiology Diagnoses Fall, initial encounter Procedures XR KNEE 1 OR 2 VIEWS RIGHT XR KNEE 3 VIEWS RIGHT Oswaldo Serrano MD #[address] [address] Phone: tel: fax: Referral ID Status Reason Start Date Expiration Date Visits Re quested Visits Authorized [id number] Closed 02/23/2024 1 1 * Radiology Services (Routine) - Authorized Specialty Diagnoses / Procedures Referred By Contac t Referred To Contact Radiology Diagnoses Postmenopausal Procedures SHABANA BONE DENSITOMETRY AXIAL SKELETON Oswaldo Serrano MD #[address] [address] Phone: tel: fax: Referral ID Status Reason Start Date Expiration Date V isits Requested Visits Authorized [id number] Authorized 02/23/2024 1 1 * Radiology Services (Routine) - Closed Specialty Diagnoses / Procedures Referred By Contac t Referred To Contact Radiology Diagnoses Fall, initial encounter Procedures XR TIBIA & FIBULA LEFT Oswaldo Serrano MD #2 [place] [address] Phone: tel: fax: Referral ID Status Reason Start Date Expiration Date Visits Re quested Visits Authorized [id number] Closed 02/23/2024 1 1 * Radiology Services (Routine) - Closed Specialty Diagnoses / Procedures Referred By Contac t Referred To Contact Radiology Diagnoses Fall, initial encounter Procedures XR HAND 3 OR MORE VIEWS LEFT Oswaldo Serrano MD #2 [place] [address] Phone: tel: fax: Referral ID Status Reason Start Date Expiration Date Visits Re quested Visits Authorized [id number] Closed 02/23/2024 1 1 * Consult, Test & Initiate Treatment (Routine) - Closed Specialty Diagnoses / Procedures Referred By Contac t Referred To Contact Diagnoses Encounter for diabetic foot exam (HCC) Oswaldo Serrano MD #[address] [place] [address] Phone: tel: fax: [facility] [address] [facility] [place] [address] Phone: tel: fax: Referral ID Status Reason Start Date Expiration Date Visits Re quested Visits Authorized [id number] Closed 02/23/2024 1 1 Scheduling Instructions Loretta is being referred to Dr. Raciel Ventura or other specialist in patient's insurance network for diabetic foot exam. See below for Loretta's current medications, allergies and problem list. CURRENT MEDS: Current Outpatient Medications: albuterol 108 (90 Base) MCG/ACT Aerosol Solution, take 1-2 Puffs by inhalation every 4 hours as needed for Cough., Disp: 18 g, Rfl: 0 Blood Glucose Monitoring Suppl Device, Test blood glucose 1x daily, E11.9, insulin dependent, Disp: 1 Each, Rfl: 0 Blood Glucose Monitoring Suppl Device, Test blood glucose 4 times daily. E11.9, insulin dependent, Disp: 1 Each, Rfl: 0 carvedilol (COREG) 25 MG Tablet, 25 mg 2 times daily., Disp: , Rfl: Continuous Blood Gluc Macerator Operator (Dexcom G7 Macerator Operator) Device, 1 Each by Does not apply route 4 times daily. Use to check glucose 4x daily., Disp: 1 Each, Rfl: 0 Continuous Blood Gluc Sensor (Dexcom G6 Sensor) Misc, , Disp: , Rfl: Continuous Blood Gluc Sensor (Dexcom G7 Sensor) Misc, 1 Each by Does not apply route every 10 days. Change sensor every 10 days., Disp: 9 Each, Rfl: 1 Continuous Blood Gluc Transmit (Dexcom G6 Transmitter) Misc, , Disp: , Rfl: Cyanocobalamin (B-12) 500 MCG Tablet, Take 1 Tablet by mouth daily., Disp: 90 Tablet, Rfl: 3 Dapagliflozin Propanediol (Farxiga) 10 MG Tablet, Take by mouth., Disp: , Rfl: dilTIAZem (CARDIZEM) 30 MG Tablet, TK 1 T PO TID, Disp: , Rfl: 0 docusate sodium (COLACE) 100 MG Capsule, TAKE 1 CAPSULE BY MOUTH TWICE DAILY, Disp: 60 Capsule, Rfl: 2 Entresto 24-26 [...] 1x daily. E11.9, insulin dependent, Disp: 100 Strip, Rfl: 3 insulin glargine (Basaglar KwikPen) 100 UNIT/ML Solution Pen-injector, 18 Units by Subcutaneous route every morning., Disp: 15 mL, Rfl: 1 Insulin Pen Needle (BD Pen Needle Trina 2nd Gen) 32G X 4 MM Misc, USE TO INJECT FOUR TIMES DAILY, Disp: 400 Each, Rfl: 3 Insulin Syringe-Needle U-100 (TRUEPLUS INSULIN SYRINGE) 31G X 5/16 0.5 ML Misc, USE 4 TIMES DAILY, Disp: 400 Each, Rfl: 3 Lancets Misc, 1 Lancet by Does not apply route daily. Test blood glucose 1x daily. E11.9, insulin dependent, Disp: 100 Lancet, Rfl: 3 Lancets Misc, Test four times daily. E11.9, insulin dependent, Disp: 400 Lancet, Rfl: 3 levothyroxine (SYNTHROID) 75 MCG Tablet, Take 1 Tablet by mouth every morning., Disp: 90 Tablet, Rfl: 3 nortriptyline (PAMELOR) 10 MG Capsule, Take 1 Capsule by mouth nightly., Disp: 90 Capsule, Rfl: 1 NovoLOG FlexPen 100 UNIT/ML Solution Pen-injector, INJECT 16-13-10 UNITS BEFORE EACH MEAL -- ISF OF 1:30 IF GREATER THAN 140MG/DL UP TO 70 UNITS PER DAY, Disp: 75 mL, Rfl: 1 omeprazole (PriLOSEC) 20 MG CAPSULE DELAYED RELEASE, Take 1 Capsule by mouth daily., Disp: 90 Capsule, Rfl: 1 potassium chloride SA (KLORCON M) 20 MEQ Tablet Controlled Release, Take 1 Tablet by mouth daily., Disp: 90 Tablet, Rfl: 1 rivaroxaban (Xarelto) 20 MG Tablet, Take 20 mg by mouth daily (with dinner). Take with food., Disp: , Rfl: Vibegron (Gemtesa) 75 MG Tablet, Take 75 mg by mouth daily for 30 days., Disp: 90 Tablet, Rfl: 1 No current facility-administered medications for this visit. ALLERGIES: -- Sulfa Antibiotics -- Unknown and Hives -- Sulfamethoxazole-Trimethoprim -- Hives PROBLEM LIST: Patient Active Problem List: Chronic congestive heart failure (HCC) Cardiomegaly TBI (traumatic brain injury) ([facility]) History of atrial fibrillation Leg wound, right Hepatitis C virus infection Medically complex patient Depression Protuberant abdomen Elevated hemoglobin A1c Type 2 diabetes mellitus treated with insulin (HCC) Iron deficiency anemia Hypothyroidism Vitamin D deficiency Hypokalemia Diabetic polyneuropathy associated with type 2 diabetes mellitus (HCC) Type 2 diabetes mellitus with diabetic polyneuropathy, with long-term current use of insulin (HCC) Dermatophytosis of nail Anemia of infection and chronic disease Iron deficiency Debilitated patient Presence of cardiac defibrillator Elevated LFTs Urinary frequency Class 3 severe obesity due to excess calories with serious comorbidity and body mass index (BMI) of 40.0 to 44.9 in adult (HCC) Hyperlipidemia Dizziness Diarrhea Chronic joint pain Hypotension Intractable cluster headache syndrome High blood pressure B12 deficiency Elevated creatine kinase Morbid obesity (HCC) Abnormal mammogram RSV (acute bronchiolitis due to respiratory syncytial virus) Pain of upper extremity Pain of lower extremity Skin lesion of back Noncompliance Systolic congestive heart failure (HCC) Foul smelling urine Hematuria Fatigue Infection of both eyes Reason for Visit * Reason Comments Follow-up 3 mo fu Encounter Details Date Type Department Care Team (Late st Contact Info) Description 02/23/2024 4:15 PM CDT Office Visit [facility] #2 [place] [address] Oswaldo Serrano MD #[address] [address] Bladder infection (Primary Dx); Yeast infection; Fall, initial encounter; Encounter for diabetic foot exam (HCC); Postmenopausal Discharge Disposition: Discharged to home or Selfcare Social History Tobacco Use Types Packs/Day Years Used Date Smoking Tobacco: Never Smokeless Tobacco: Never Tobacco Cessation:Counseling Given: Yes Alcohol Use Standard Drinks/Week Comments No 0 (1 standard drink = 0.6 oz pur e alcohol) [facility] Utilities Answer Date Recorded In the past 12 months has e [place], gas, oil, or water [employer] threatened to shut off services in your [...] often do you attend chur ch or taoist services? Never 11/09/2023 Do you belong to [...] Total Score - Questions 1-9 0 07/12 [facility] Occupat ional Health - Occupational Stress [...] Sign Reading Time Taken Comments Blood Pressure 114/84 02/23/2024 4:21 PM CDT Pulse 83 02/23/2024 4:21 PM CDT Temperature 35.9 ??C (96.6 ??F) 02/23/2024 4:21 PM CD T Respiratory Rate - - Oxygen Saturation 95% 02/23/2024 4:21 PM CDT Inhaled Oxygen Concentration - - Weight 120.2 kg (265 lb) 02/23/2024 4:21 PM CDT Height 165.1 cm (5' 5 ) 02/23/2024 4:21 PM CDT Body Mass Index 44.1 02/23/2024 4:21 PM CDT documented in this encounter Functional Status * Question Answer [...] Patrick MA documented as of this encounter Patient Instructions * Patient Instructions* Oswaldo Serrano MD - 02/23/2024 4:15 PM CDT Take Levaquin antibiotic for bladder infection. Take Diflucan for yeast infections. Get x-rays done. Get diabetic foot exam. Drink lots of water and cranberry juice for the bladder infection. Do urine test today! Do bone density test. documented in this encounter Progress Notes * Stephanie Patrick MA - 02/23/2024 4:15 PM CDT Loretta Penn, 63 y.o., female is here for Follow-up (3 mo fu ) Medication Refills: Patient reports/denies need for medication refills. Orders Pended: no Requested Prescriptions No prescriptions requested or ordered in this encounter Home Medications Medication Sig Start Date End Date Taking? Authorizing Provider albuterol 108 (90 Base) MCG/ACT Aerosol Solution take 1-2 Puffs by inhalation every 4 hours as needed for Cough. 12/05/23 Yes Oswaldo Serrano MD Blood Glucose Monitoring Suppl Device Test blood glucose 1x daily, E11.9, insulin dependent 12/30/22Yes Ok Jorge MD Blood Glucose Monitoring Suppl Device Test blood glucose 4 times daily. E11.9, insulin dependent 12/19/19 Yes Ok Jorge MD carvedilol (COREG) 25 MG Tablet 25 mg 2 times daily. 05/06/17 Yes Nica Muniz MD Continuous Blood Gluc Macerator Operator (Dexcom G7 Macerator Operator) Device 1 Each by Does not apply [...] Gluc Transmit (Dexcom G6 Transmitter) Misc 12/03/21 Nica Muniz MD Cyanocobalamin (B-12) 500 MCG Tablet Take 1 Tablet by mouth daily. 11/14/22 Yes Oswaldo Serrano MD Dapagliflozin Propanediol (Farxiga) 10 MG Tablet Take by mouth. 06/01/22 Yes Nica Muniz MD dilTIAZem (CARDIZEM) 30 MG Tablet TK 1 T PO TID 04/28/17 Yes Nica Muniz MD docusate sodium (COLACE) 100 MG Capsule TAKE 1 CAPSULE BY MOUTH TWICE DAILY 02/02/24 Yes Oswadlo Serrano MD Entresto 24-26 MG Tablet 09/11/21 Yes Nica Muniz MD escitalopram (LEXAPRO) 10 MG Tablet TAKE 1 TABLET BY MOUTH DAILY 12/12/23 Yes Oswaldo Serrano MD fluticasone (FLONASE) 50 MCG/ACT Suspension 1-2 Sprays by Nasal route daily. Use in each nostril asdirected. 02/01/23 Yes Oswaldo Serrano MD furosemide (LASIX) 40 MG Tablet TAKE 1 TABLET BY MOUTH DAILY 07/18/23 Yes Connor Yuan APRN, CNP Glucose Blood [...] Capsule Take 1 Capsule by mouth nightly. 12/04/23 Yes Yves Serrano MD NovoLOG FlexPen 100 UNIT/ML Solution Pen-injector INJECT 16-13-10 UNITS BEFORE EACH MEAL -- ISF OF 1:30 IF GREATER THAN 140MG/DL UP TO 70 UNITS PER DAY 07/18/23 Yes Ok Jorge MD omeprazole (PriLOSEC) 20 MG CAPSULE DELAYED RELEASE Take 1 Capsule by mouth daily. 01/20/24 Yes Oswaldo Serrano MD potassium chloride SA (KLORCON M) 20 MEQ Tablet Controlled Release Take 1 Tablet by mouth daily. 01/20/24 Yes Oswaldo Serrano MD rivaroxaban (Xarelto) 20 MG Tablet Take 20 mg by mouth daily (with dinner). Take with food. Yes Provider, MD Nica Vibegron (Gemtesa) 75 MG Tablet Take 75 mg by mouth daily for 30 days. 01/24/24 02/23/24 Yes Orlin Urbina, GOLF CADDY, WOOD GRINDER There are no discontinued medications. I have reviewed the home medication list with the patient and have reconciled discrepancies. The list is accurate to the best of my knowledge. Smoking Status: Social History Tobacco Use Smoking status: Never Smokeless tobacco: Never Vaping Use Vaping Use: Never used Substance Use Topics Alcohol use: No Drug use: No Smoking Cessation Counseling Given: n/a Health Care Maintenance: Health Maintenance Due Topic Date Due Diabetes: Foot Exam Never done TdaP Immunization Never done Zoster Immunization (1 of 2) Never done Hepatitis B Immunization (1 of 3 - Risk 3-dose series) Never done Respiratory Syncytial Virus (RSV) Immunization (Adult - or age 60+ years) (1 - 1-dose 60+ series) Never done SARS-COV-2 Immunization ( - 2022- season) 2023 Diabetes: Eye Exam 02/24/2024 Orders Pended: no The following BPA's have been addressed with the patient today: BMI * Oswaldo Serrano MD - 02/23/2024 4:15 PM CDT CHIEF COMPLAINT: Fall. SUBJECTIVE: The patient fell down at home. She has mild pain in her right knee, left lateral leg just below the knee, and some bruising there as well and her left hand. Relative thinks she has a UTI. She finished a course of Macrobid. She also thinks she has a yeast infection since she is having some pelvic itching. She is overdue for a bone density test. I have reviewed all the systems. They are negative except as mentioned in HPI. OBJECTIVE: Vital Signs: Blood pressure 114/84, pulse 83, temperature 96.6, weight 265. General: Patient is talkative, cooperative, and appropriately dressed. Chest: Clear to auscultation bilaterally. No wheezing. Heart: S1, S2. No murmurs. Neck: No carotid bruits auscultated. Extremities: Right knees grossly normal. Left knee shows some mild bruising just below the left knee. ASSESSMENT/PLAN: 1. Bladder infection. We will get a UA and urine culture on her. In the meantime, I will put her on Levaquin 500 daily for 7 days. Told her to drink plenty of water and cranberry juice. 2. Fall. Will get x-rays. 3. Yeast infection. I called in some Diflucan. 4. Postmenopausal. We will get a bone density test on her. 5. This patient has follow up in 3 months. IJN: [id number] documented in this encounter Plan of Treatment Upcoming Encounters Date Type Department Care Team (Late st Contact Info) Description 10/08/2024 2:15 PM AUTOMATIC OVEN OPERATOR Office Visit [facility] #2 [place] [address] Orlin Urbina APRN, WOOD GRINDER #2 [place] [address] 10/18/2024 2:15 PM AUTOMATIC OVEN OPERATOR [facility] 1 [place] [address] Oswaldo Serrano MD #[address] [address] Discharge Disposition: Discharged to home or Selfcare 11/29/2024 2:30 PM AUTOMATIC OVEN OPERATOR Office Visit [facility] - [facility] #2 [place] [address] Oswaldo Serrano MD #2 [facility] [address] [place] [address] 11/30/2024 3:00 PM AUTOMATIC OVEN OPERATOR Office Visit [facility] - Endocr[facility]ology - [place] #2 [place] [address] Ok Jorge MD #2 [facility] [address] [place] [address] Scheduled Orders Name Type Priority Associated Diagnoses Orde r Schedule SHABANA BONE DENSITOMETRY AXIAL SKELETON Imaging Routine Postmenopausal Expected: 02/23/2024, Expires: 02/22/2025 Scheduled Referrals Name Type Priority Associated Diagnoses Orde r Schedule EXTERNAL PODIATRY REFERRAL Outpatient Referral Routine Encounter for diabetic foot exam (HCC) Expected: 02/23/2024 (Approximate), Expires: 02/22/2025 documented as of this encounter Results * XR TIBIA & [...] PM T: ??02/24/2024 5:07 PM Report ID: [id number] Reading Location: ??[id number] Procedure Note Tom Wyman MD - 02/24/2024 [...] Tom Wyman M.D. MF: LIZ Report ID: [id number] Reading Location: [id number] IMPRESSION: No acute fracture. 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 Mild patellofemoral compartment left knee osteoarthritis. Oswaldo Serrano MD IM DIAGNOSTIC ORDERABLES F inal Result * XR KNEE 1 OR 2 VIEWS [...] PM T: ??02/24/2024 5:07 PM Report ID: [id number] Reading Location: ??[id number] Procedure Note Tom Wyman MD - 02/24/2024 [...] Tom Wyman M.D. MF: LIZ Report ID: [id number] Reading Location: [id number] IMPRESSION: No acute fracture. 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 Mild patellofemoral compartment left knee osteoarthritis. Oswaldo Serrano MD IMG DIAGNOSTIC ORDERABLES F inal Result * XR HAND 3 OR MORE VIEWS [...] PM T: ??02/24/2024 5:07 PM Report ID: [id number] Reading Location: ??[id number] Procedure Note Tom Wyman MD - 02/24/2024 [...] 5:07 PM - Electronically signed by Tom HILL: LIZ Report ID: [id number] Reading Location: [id number] IMPRESSION: No acute fracture. 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 Mild patellofemoral compartment left knee osteoarthritis. Oswaldo Serrano MD IM DIAGNOSTIC ORDERABLES F inal Result * CULTURE, URINE (02/23/2024 5:00 PM CDT) CULTURE RESULTS ESCHERICHIA COLI 02/26/2024 8:52 AM CDT [facility] Comment:PRESUMPTIVE IDENTIFI CATION CULTURE RESULTS ALSO MIXED GROWTH OF DISTAL URETHRA CONTAMINANTS. 02/26/2024 8:52 AM CDT [facility] Culture URINE SPECIMEN COLLECTION, CLEAN CATCH / Unknown Non-Phlebotomy Collection / Unknown 02/23/2024 5:00 PM CDT 02/23/2024 6:05 PM CDT Narrative Organism Antibiotic Method Susceptibility Escherichia coli Ampicillin [facility] VITEK II <=2 mcg/ml: Susceptible Escherichia coli Ampicillin/sulbactam [facility] V[facility] II <=2 mcg/ml: Susceptible Escherichia coli Cefazolin [facility] II <=4 mcg/ml: Susceptible Escherichia coli Cefepime [facility] II <=1 mcg/ml: Susceptible Escherichia coli Ceftriaxone [facility] II <=1 mcg/ml: Susceptible Escherichia coli Gentamicin [facility] II <=1 mcg/ml: Susceptible Escherichia coli Levofloxacin [facility] II <=0.12 mcg/ml: Susceptible Escherichia coli Meropenem [facility] II <=0.25 mcg/ml: Susceptible Escherichia coli Nitrofurantoin [facility] II <=16 mcg/ml: Susceptible Escherichia coli Piperacillin/Tazobactam [facility] II <=4 mcg/ml: Susceptible Escherichia coli Tobramycin [facility] II <=1 mcg/ml: Susceptible Escherichia coli Trimeth/Sulfamethoxazole [facility] I I <=20 mcg/ml: Susceptible Oswaldo Serrano MD MICROBIOLOGY - GENERAL MAGDALENO MCINTOSH Final Result [facility] [address] [place] [address], * (ABNORMAL) URINALYSIS REFLEX IF INDICATED BY ABNORMAL RESULTS (02/23/2024 5:00 PM CDT) SPECIFIC GRAVITY 1.015 1.003 - 1.030 02/23/2024 6:[address] [facility] URINE PH 5.0 5.0 - 9.0 02/23/2024 6:46 PM CDT [facility] WBC ESTERASE Negative Negative 02/23/2024 6:46 PM CDT [facility] NITRITE Negative Negative 02/23/2024 6:46 PM CDT [facility] PROTEIN, RANDOM URINE Negative Negative 02/23/2024 6:46 PM CDT [facility] URINE GLUCOSE, QUAL 1000 mg/dL(A) Negative 02/23/2024 6:46 PM CDT [facility] URINE KETONES Negative Negative 02/23/2024 6:46 PM CDT [facility] UROBILINOGEN Normal Normal mg/dL 02/23/2024 6:46 PM CDT [facility] URINE BLOOD 25 /uL(A) Negative jolene/ul 02/23/2024 6:[address] [facility] URINALYSIS COLOR Yellow 02/23/20 24 6:46 PM CDT [facility] URINALYSIS CLARITY Slightly Cloudy 02/23/2024 6:46 PM CDT [facility] WBC (Urine) 0-5 Negative, 0-5 /hpf 02/23/2024 6:[address] [facility] URINE RBC'S 3-5(A) Negative, 0-2 /hpf 02/23/2024 6:[address] [facility] EPITHELIAL CELLS Small amount /lpf 2023 6:[address] [facility] BACTERIA, URINE Negative Negative /hpf 02/23/2024 6:[address] Urine URINE SPECIMEN COLLECTION, CLEAN CATCH / Unknown Non-Phlebotomy Collection / Unknown 02/23/2024 5:00 PM CDT 02/23/2024 6:05 PM CDT us Oswaldo Serrano MD URINE ORDERABLES Final Resu lt [facility] #[address] [place] [address] documented in this encounter Visit Diagnoses Diagnosis Bladder infection- Primary Cystitis, unspecified Yeast infection Other and unspecified mycoses Fall, initial encounter Encounter for diabetic foot exam (HCC) Postmenopausal Asymptomatic postmenopausal status (age-related) (natural) Fall, initial encounter Fall, initial encounter Fall, initial encounter documented in this encounter Additional Health Concerns Assessment Noted Time PHQ-9 Depression Total Score: 0 08/09/20 23 2:56 PM CDT documented as of this encounter Care Teams Bull Fiddle Player Relationship Specialty Start Date End Date Oswaldo Serrano MD #2 [facility] [address] [place] [address] PCP - General Family Medicine 05/19/17 Angel Crowe DPM #2 [facility] [address] [place] [address] Consulting Physician Podiatry 06/16/17 Mora Fritz [place] Behavioral Health Navigator 06/15/18 Ok Jorge MD #2 [facility] [address] [place] [address] Consulting Physician Endocrinology 05/12/22 Orlin Urbina APRN, WOOD GRINDER #[address] [place] [address] Nurse Practitioner Advanced Practice Nurse 11/09/22 documented as of this encounter
--- OUTSIDE RECORDS SUMMARY | 2024-10-07 00:20 | XMS_ITS | Encounter Summary ---
Author Organization [facility] Address [address] [place] [address] Phone Care Team Providers Care Device Sales Consultant Name Role Phone Oswaldo Serrano MD Primary Care Provider [phone] Angel Crowe DPM Unavailable [phone] Mora Fritz Unavailable Unavailable Ok Jorge MD Unavailable Orlin Urbina APRN, LINE MOVER Unavailable + [phone] Reason for Visit * Reason Onset Date Comments Medication Refill 04/17/2024 Encounter Details Date Type Department Care Team (Late st Contact Info) Description 04/17/2024 MyChart RX Renewal [facility] - [facility] Medicine [facility] #2 [place] [address] Connor Yuan APRN, LINE MOVER #[address] [id number] Medication Renewal Declined Social History Tobacco Use Types Packs/Day Years [...] often do you attend chur ch or latter-day services? Never 11/09/2023 Do you belong to any clubs o r organizations such as catholic groups, unions, fraternal or athletic groups, or [...] Total Score - Questions 1-9 0 07/12 [facility] [place] of Occupat ional Health - Occupational Stress [...] st Contact Info) Description 10/08/2024 2:15 PM PERSONAL LINES SALES EXECUTIVE Office Visit [facility] #2 [place] [address] Orlin Urbina APRN, LINE MOVER #2 [place] [address] 10/18/2024 2:15 PM PERSONAL LINES SALES EXECUTIVE [facility] 1 [place] [address] Oswaldo Serrano MD #[address] [address] Discharge Disposition: Discharged to home or Selfcare 11/29/2024 2:30 PM PERSONAL LINES SALES EXECUTIVE Office Visit [facility] Medicine [facility] #2 [place] [address] Oswaldo Serrano MD #[address] [address] 11/30/2024 3:00 PM PERSONAL LINES SALES EXECUTIVE Office Visit [facility] - Endocrinology [facility] #2 [place] [address] Ok Jorge MD #[address] [address] documented as of this encounter Visit Diagnoses Diagnosis Chronic congestive heart failure, unspecified heart failure type (HCC) documented in this encounter Additional Health Concerns Assessment Noted Time PHQ-9 Depression Total Score: 0 08/09/20 23 2:56 PM CDT documented as of this encounter Care Teams Device Sales Consultant Relationship Specialty Start Date End Date Oswaldo Serrano MD #[address] [address] PCP - General Family Medicine 05/19/17 Angel Crowe DPM #[address] [address] Consulting Physician Podiatry 06/16/17 Mora Fritz [place] Behavioral Health Navigator 06/15/18 Ok Jorge MD #[address] [address] Consulting Physician Endocrinology 05/12/22 Orlin Urbina APRN, LINE MOVER #2 [place] [address] Nurse Practitioner Advanced Practice Nurse 11/09/22 documented as of this encounter
--- OUTSIDE RECORDS SUMMARY | 2024-10-07 00:20 | XMS_ITS | Encounter Summary ---
Author Organization [facility] Address [address] [place] [address] Phone Care Team Providers Care Heater Worker Name Role Phone Oswaldo Serrano MD Primary Care Provider [phone] Angel Crowe DPCiara Unavailable [phone] Mora Fritz Unavailable Unavailable Ok Jorge MD Unavailable Orlin Urbina APRN, OIL FIELD LABORER Unavailable Reason for Visit * Reason Comments Medication Refill Encounter Details Date Type Department Care Team (Late st Contact Info) Description 08/04/2024 Refill [facility] - [place] #2 [place] [address] Oswaldo Serrano MD #[address] [address] Medication Refill Social History Tobacco Use Types Packs/Day Years Used Date Smoking Tobacco: Never Smokeless Tobacco: Never Alcohol Use Standard Drinks/Week Comments No 0 (1 standard drink = 0.6 oz pur e alcohol) [facility] Utilities Answer Date Recorded In [...] often do you attend chur ch or hindu services? Never 11/09/2023 Do you belong to [...] Total Score - Questions 1-9 0 07/12 [facility] [place] of Occupat ional Health - Occupational Stress [...] Encounter - Maria Luisa Gallegos RN - 08/05/2024 1:32 PM CDT Per nursing clinical judgement, provider to review and approve the medication(s) order(s) if appropriate. Requested Prescriptions Pending Prescriptions Disp Refills albuterol 108 (90 Base) MCG/ACT Aerosol Solution [Pharmacy Med Name: ALBUTEROL HFA INH (200 PUFFS) 18GM] 18 g 0 Sig: INHALE 1 TO 2 PUFFS BY MOUTH EVERY 4 HOURS NEEDED FOR COUGH Short Acting Inhaled Beta-Agonists Protocol Passed - 08/04/2024 12:22 PM Passed - Visit with relevant provider in past 12 months or upcoming 90 days Recent Visits Date Type Provider Dept 03/08/24 Telemedicine Oswaldo Serrano MD [facility] 02/23/24 Office Visit Oswaldo Serrano MD [facility] 11/09/23 Office Visit Oswaldo Serrano MD [facility] 08/09/23 Office Visit Oswaldo Serrano MD [facility] Showing recent visits within past 365 days and meeting all other requirements Future Appointments Date Type Provider Dept 08/09/24 Appointment Connor Yuan APRN, OIL FIELD LABORER [facility] Showing future appointments within next 90 days and meeting all other requirements documented in this encounter Plan of Treatment Upcoming Encounters Date Type Department Care Team (Late st Contact Info) Description 10/08/2024 2:15 PM TOWER EQUIPMENT REPAIRER Office Visit [facility] #2 [place] [address] Orlin Urbina APRN, OIL FIELD LABORER #2 [place] [address] 10/18/2024 2:15 PM TOWER EQUIPMENT REPAIRER [facility]ointment [facility] 1 [place] [address] Oswaldo Serrano MD #[address] [address] Discharge Disposition: Discharged to home or Selfcare 11/29/2024 2:30 PM TOWER EQUIPMENT REPAIRER Office Visit [facility] - [place] #2 [place] [address] Oswaldo Serrano MD #[address] [address] 11/30/2024 3:00 PM TOWER EQUIPMENT REPAIRER Office Visit [facility] - Endocrinology - [place] #2 [place] [address] Ok Jorge MD [facility] [address] [place] [address] documented as of this encounter Visit Diagnoses Not on filedocumented in this encounter Additional Health Concerns Assessment Noted Time PHQ-9 Depression Total Score: 0 08/09/20 23 2:56 PM CDT documented as of this encounter Care Teams Heater Worker Relationship Specialty Start Date End Date Oswaldo Serrano MD #[address] [address] PCP - General Family Medicine 05/19/17 Angel Crowe DPM #[address] [address] Consulting Physician Podiatry 06/16/17 Mora Fritz [place] Behavioral Health Navigator 06/15/18 Ok Jorge MD #[address] [address] Consulting Physician Endocrinology 05/12/22 Orlin Urbina CLAIM AUDITOR, OIL FIELD LABORER #2 [place] [address] Nurse Practitioner Advanced Practice Nurse 11/09/22 documented as of this encounter
--- OUTSIDE RECORDS SUMMARY | 2024-10-07 00:20 | XMS_ITS | Encounter Summary ---
Author Organization [facility] Address [address] [place] [address] Phone Care Team Providers Care Ticket Scheduler Name Role Phone Oswaldo Serrano MD Primary Care Provider [phone] Angel Crowe DPM Unavailable [phone] Mora Fritz Unavailable Unavailable Ok Jorge MD Unavailable Orlin Urbina APRN, BONER MEAT Unavailable [phone] Reason for Visit * Reason Comments Medication Refill Encounter Details Date Type Department Care Team (Late st Contact Info) Description 02/09/2024 Refill [facility] - [place] #2 [place] [address] Ok Jorge MD #[address] [address] Medication Refill Social History Tobacco Use Types Packs/Day Years Used Date Smoking Tobacco: Never Smokeless Tobacco: Never Alcohol Use Standard Drinks/Week Comments No 0 (1 standard drink = 0.6 oz pur e alcohol) [facility] Utilities Answer Date Recorded In the [...] often do you attend chur ch or pentecostalism services? Never 11/09/2023 Do you belong to any clubs o r organizations such as voodoo groups, unions, fraternal or athletic groups, or [...] Recorded Total Score - Questions 1-9 0 1010/2022 [facility] [place] of Occupat ional Health - Occupational Stress [...] Telephone Encounter - Ok Jorge MD - 02/09/2024 5:26 PM CDT Rx sent * Telephone Encounter - Ynes Zuniga RN - 02/09/2024 12:20 PM CDT Requested Prescriptions Pending Prescriptions Disp Refills Basaglar KwikPen 100 UNIT/ML Solution Pen-injector [Pharmacy Med Name: BASAGLAR 100 U/ML KWIKPEN INJ 3ML] 15 mL 1 Sig: ADMINISTER 20 UNITS UNDER THE SKIN EVERY MORNING Next appt: 04/04/2024 documented in this encounter Plan of Treatment Upcoming Encounters Date Type Department Care Team (Late st Contact Info) Description 10/08/2024 2:15 PM MAT SEWER Office Visit [facility] #2 [place] [address] Orlin Urbina, AIRBORNE SENSOR SPECIALIST, BONER MEAT #2 [place] [address] 10/18/2024 2:15 PM MAT SEWER Appointment [facility] Mammography 1 [place] [address] Oswaldo Serrano MD #[address] [address] Discharge Disposition: Discharged to home or Selfcare 11/29/2024 2:30 PM MAT SEWER Office Visit [facility] - [place] #2 [facility] [place] [address] Oswaldo Serrano MD #[address] [address] 11/30/2024 3:00 PM MAT SEWER Office Visit [facility] - Endocrinology - [place] #2 [place] [address] Ok Jorge MD #2 [facility] [address] [place] [address] documented as of this encounter Visit Diagnoses Not on filedocumented in this encounter Additional Health Concerns Assessment Noted Time PHQ-9 Depression Total Score: 0 08/09/20 2:56 PM CDT documented as of this encounter Care Teams Ticket Scheduler Relationship Specialty Start Date End Date Oswaldo Serrano MD #2 [facility] [address] [place] [address] PCP - General Family Medicine 05/19/17 Angel Crowe DPM #2 [facility] [address] [place] [address] Consulting Physician Podiatry 06/16/17 Mora Fritz [place] Behavioral Health Navigator 06/15/18 Ok Jorge MD #2 [facility] [address] [place] [address] Consulting Physician Endocrinology 05/12/22 Orlin Urbina, AIRBORNE SENSOR SPECIALIST, BONER MEAT #2 [place] [address] Nurse Practitioner Advanced Practice Nurse 11/09/22 documented as of this encounter
--- OUTSIDE RECORDS SUMMARY | 2024-10-07 00:20 | XMS_ITS | Encounter Summary ---
Author Organization [facility] Address [address] [place] [address] Phone Care Team Providers Care Geospatial Program Management Officer Name Role Phone Oswaldo Serrano MD Primary Care Provider [phone] Angel Crowe DPM Unavailable [phone] Mora Fritz Unavailable Unavailable Ok Jorge MD Unavailable Orlin Urbina APRN, DEBEADER Unavailable + [phone] Reason for Visit * Reason Onset Date Comments Medication Refill 05/18/2024 Encounter Details Date Type Department Care Team (Late st Contact Info) Description 05/18/2024 MyChart RX Renewal [facility] - Family [facility] #2 [place] [address] Oswaldo Serrano MD #[address] [address] Medication Renewal Reviewed Social History Tobacco Use Types Packs/Day Years Used Date Smoking Tobacco: Never Smokeless Tobacco: Never Alcohol Use Standard Drinks/Week Comments No 0 (1 standard drink = 0.6 oz pur e alcohol) [facility] Utilities Answer Date Recorded In [...] often do you attend chur ch or hinduism services? Never 11/09/2023 Do you belong to any clubs o r organizations such as amish groups, unions, fraternal or athletic groups, or [...] Total Score - Questions 1-9 0 07/12 [facility] [place] of Occupat ional Health - Occupational Stress [...] Telephone Encounter - Mica Morales RN - 05/18/2024 2:38 PM CDT Medication failed the protocol, provider to review and approve the medication order if appropriate. Requested Prescriptions Pending Prescriptions Disp Refills nortriptyline (PAMELOR) 10 MG Capsule 90 Capsule 1 Sig: Take 1 Capsule by mouth nightly. Not Delegated - Tricyclic Agents Protocol Failed - 05/18/2024 1:29 PM Failed - This refill cannot be delegated Passed - Visit with relevant provider in [...] 90 days and meeting all other requirements docusate sodium (COLACE) 100 MG Capsule 60 Capsule 2 Sig: Take 1 Capsule by mouth 2 times daily. Laxatives Protocol Passed - 05/18/2024 1:29 PM Passed - Visit with relevant provider [...] date with colon cancer screening Health Maintenance documented in this encounter Plan of Treatment Upcoming Encounters Date Type Department Care Team (Late st Contact Info) Description 10/08/2024 2:15 PM IUSS ANALYST Office Visit [facility] #2 [place] [address] Orlin Urbina, RETORT KILN BURNER, DEBEADER #2 [place] [address] 10/18/2024 2:15 PM IUSS ANALYST [facility] 1 [place] [address] Oswaldo Serrano MD #[address] [address] Discharge Disposition: Discharged to home or Selfcare 11/29/2024 2:30 PM IUSS ANALYST Office Visit [facility] Family Medicine [facility] #2 [place] [address] Oswaldo Serrano MD #[address] [place] [address] 11/30/2024 3:00 PM IUSS ANALYST [facility] Visit [facility] - Endocrinology [facility] #2 [place] [address] Ok Jorge MD #[address] [place] [address] documented as of this encounter Visit Diagnoses Not on filedocumented in this encounter Additional Health Concerns Assessment Noted Time PHQ-9 Depression Total Score: 0 08/09/20 23 2:56 PM CDT documented as of this encounter Care Teams Geospatial Program Management Officer Relationship Specialty Start Date End Date Oswaldo Serrano MD #[address] [address] PCP - General Family Medicine 05/19/17 Angel Crowe DPM #[address] [address] Consulting Physician Podiatry 06/16/17 Mora Fritz [place] Behavioral Health Navigator 06/15/18 Ok Jorge MD #[address] [address] Consulting Physician Endocrinology 05/12/22 Orlin Urbina APRN, DEBEADER #2 [place] [address] Nurse Practitioner Advanced Practice Nurse 11/09/22 documented as of this encounter
--- OUTSIDE RECORDS SUMMARY | 2024-10-07 00:20 | XMS_ITS | Encounter Summary ---
Author Organization [employer] Care Team Providers Care Lead Pony Rider Name Role Phone Oswaldo Serrano MD Primary Care Provider [phone] Angel Crowe DPCiara Unavailable [phone] Mora Fritz Unavailable Unavailable Ok Jorge MD Unavailable Orlin Urbina APRN, MANAGER REAL ESTATE Unavailable + [phone] Encounter Details Date Type Department Care Team (Latest Contact Info) Description 08/10/2024 Travel Social History Tobacco Use Types Packs/Day Years Used Date Smoking Tobacco: Never Smokeless Tobacco: Never Alcohol Use Standard Drinks/Week Comments No 0 (1 standard drink = 0.6 oz pur e alcohol) [facility] Utilities Answer Date Recorded In the past 12 months has [employer], gas, oil, or water company threatened to [...] any clubs o r organizations such as gnosticism groups, unions, fraternal or athletic groups, or [...] Score - Questions 1-9 0 11/0 10/2023 [facility] of Occupat ional Health - Occupational [...] place to sleep or slept in a prison (including now)? No 11/09/2023 Education Answer Date [...] things Not at all 08/10/2024 1:59 PM [facility] Trudi Augustin CMA Feeling down, depressed, or hopeless Not at all 08/10/2024 1:59 PM Trudi Hutchison CMA * Over the past 2 weeks, how often have you been bothered by any of the following problems? Question Answer Date of Assessment Author Patient Health Questionnaire -2 Score 0 08/10/2024 1:59 PM Trudi Hutchison CMA documented as of this encounter Plan of Treatment Upcoming Encounters Date Type Department Care Team (Late st Contact Info) Description 10/08/2024 2:15 PM FREIGHT SERVICE INSPECTOR Office Visit [facility] #2 [place] [address] Orlin Urbina APRN, MANAGER REAL ESTATE #2 [place] [address] 10/18/2024 2:15 PM FREIGHT SERVICE INSPECTOR [facility] 1 [place] [address] Oswaldo Serrano MD #[address] [address] Discharge Disposition: Discharged to home or Selfcare 11/29/2024 2:30 PM FREIGHT SERVICE INSPECTOR Office Visit [facility] - Family Medicine [facility] #2 [place] [address] Oswaldo Serrano MD #[address] [address] 11/30/2024 3:00 PM FREIGHT SERVICE INSPECTOR Office Visit [facility] Endocrinology [facility] #2 [place] [address] Ok Jorge MD #[address] [address] documented as of this encounter Visit Diagnoses Not on filedocumented in this encounter Additional Health Concerns Assessment Noted Time PHQ-9 Depression Total Score: 0 08/10/20 24 1:59 PM CDT documented as of this encounter Care Teams Lead Pony Rider Relationship Specialty Start Date End Date Oswaldo Serrano MD #[address] [address] PCP - General Family Medicine 05/19/17 Angel Crowe DPM #[address] [address] Consulting Physician Podiatry 06/16/17 Mora Fritz [place] Behavioral Health Navigator 06/15/18 Ok Jorge MD #[address] [address] Consulting Physician Endocrinology 05/12/22 Orlin Urbina APRN, MANAGER REAL ESTATE #2 [place] [address] Nurse Practitioner Advanced Practice Nurse 11/09/22 documented as of this encounter
--- OUTSIDE RECORDS SUMMARY | 2024-10-07 00:20 | XMS_ITS | Encounter Summary ---
Author Organization [facility] Address [address] [facility] [place] [address] Phone Care Team Providers Care Bucket Wash Operator Name Role Phone Oswaldo Serrano MD Primary Care Provider [phone] Angel Crowe DPM Unavailable [phone] Mora Fritz Unavailable Unavailable Ok Jorge MD Unavailable Orlin Urbina APRN, SILVERWARE BUFFER Unavailable Reason for Visit * Reason Onset Date Comments Advice Only 03/08/2024 Urinary Pain 03/08/2024 Encounter Details Date Type Department Care Team (Late st Contact Info) Description 03/08/2024 Nurse Triage [facility] [address] [place] [address] Oswaldo Serrano MD #[address] [address] Advice Only; Urinary Pain Social History Tobacco Use Types Packs/Day Years Used Date Smoking Tobacco: Never Smokeless Tobacco: Never Alcohol Use Standard Drinks/Week Comments No 0 (1 standard drink = 0.6 oz pur e alcohol) [facility] Utilities Answer Date Recorded In the past [...] often do you attend chur ch or christianity services? Never 11/09/2023 Do you belong to [...] Total Score - Questions 1-9 0 07/12 [facility] [place] of Occupat ional Health - Occupational Stress [...] Telephone Encounter - Oswaldo Serrano MD - 03/08/2024 3:11 PM CDT Schedule her for telephone visit with me evelyn. Thanks! * Telephone Encounter - Jennifer Rosenbaum RN - 03/08/2024 2:33 PM CDT SITUATION: patient's PRD, sister Dilia, is calling on patient's behalf. Dilia put patient on a 3 [address] call and patient also completed the triage. Patient still has pain: patient reports back pain, side pain, urination pain, pain in her legs from the groin to the knees. Patient has a sense of urinaryurgency. Patient reports occasional dizziness. BACKGROUND: patient had a yeast infection. Caller wonders if patient needs more medication. Patientto the office 02/23/24 for symptoms. Patient had started Macrobid 02/27/24 and finished it 03/04/24. ASSESSMENT: Symptom Description / Location: symptoms began 01/24/24 and they have never really went away. Patient has had painful urination x 5 today. Patient doesn't know if she has vaginal discharge. Patient last had a urinary tract infection 8 months ago. At that time, antibiotics and a yeast infection pill got rid of it. Denies blood in urine, genital sores. Pain (0-10): patient reports her pain in all areas to be moderate. Temp: denies fever Treatment / Response: Macrobid did not get rid of the infection. RECOMMENDATION: go to office now. Sister cannot bring patient to the office today. Sister is requesting a yeast infection pill for patient. Please advise sister. Caller prefers [facility] for communication. See care advice and disposition for Guideline First positive answer recorded, all responses to prior questions were negative. If symptoms increase, change or if new symptoms develop, call your HCP or call back. Recommendations were based on caller information and is not a diagnosis. Verified and reviewed all triage information with caller. Reason for Disposition Side (flank) or lower back pain present Protocols used: Urination Pain - Female-A-OH Standing order available * Telephone Encounter - Apurva Denton - 03/08/2024 2:32 PM CDT Symptom: Abdominal Pain - Female - Not Outcome: Schedule an appointment at earliest convenience. Reason: Caller denied all higher acuity questions The caller rejected this outcome Caller denied: * Severe pain now * Blood in vomit * Walks bent over * Blood in the stool (poop) * Fever * Started within the past 3 days * Getting worse documented in this encounter Plan of Treatment Upcoming Encounters Date Type Department Care Team (Late st Contact Info) Description 10/08/2024 2:15 PM MANAGER OF CHANGE Office Visit [facility] #[address] [facility] [address] Orlin Urbina EARLY CHILDHOOD EDUCATION WORKER, SILVERWARE BUFFER #2 [facility] [place] [address] 10/18/2024 2:15 PM MANAGER OF CHANGE Appointment [facility] M[facility] 1 [place] [address] Oswaldo Serrano MD #2 [facility] [address] [place] [address] Discharge Disposition: Discharged to home or Selfcare 11/29/2024 2:30 PM MANAGER OF CHANGE [facility] Visit [facility] - [place] #2 [facility] [place] [address] Oswaldo Serrano MD #2 [facility] [address] [place] [address] 11/30/2024 3:00 PM MANAGER OF CHANGE Office Visit [facility] Endocrinology - [place] #[address] [facility] [address] Ok Jorge MD #2 [facility] [address] [place] [address] documented as of this encounter Visit Diagnoses Not on filedocumented in this encounter Additional Health Concerns Assessment Noted Time PHQ-9 Depression Total Score: 0 08/09/20 2:56 PM CDT documented as of this encounter Care Teams Bucket Wash Operator Relationship Specialty Start Date End Date Oswaldo Serrano MD #2 [facility] [address] [place] [address] PCP - General Family Medicine 05/19/17 Angel Crowe DPM #2 [facility] [address] [place] [address] Consulting Physician Podiatry 06/16/17 Mora Fritz Behavioral Health Navigator 06/15/18 Ok Jorge MD #2 [facility] [address] [place] [address] Consulting Physician Endocrinology 05/12/22 Orlin Urbina, EARLY CHILDHOOD EDUCATION WORKER, SILVERWARE BUFFER #2 [place] [address] Nurse Practitioner Advanced Practice Nurse 11/09/22 documented as of this encounter
--- OUTSIDE RECORDS SUMMARY | 2024-10-07 00:20 | XMS_ITS | Encounter Summary ---
Author Organization [facility] Address [address] [place] [address] Phone Care Team Providers Care Felting Machine Operator Name Role Phone Oswaldo Serrano MD Primary Care Provider [phone] Angel Crowe DPM Unavailable [phone] Mora Fritz Unavailable Unavailable Ok Jorge MD Unavailable Orlin Urbina APRN, APPLICATION DEVELOPMENT INTERN Unavailable [phone] Encounter Details Date Type Department Care Team (Late st Contact Info) Description 08/09/2024 Documentation Only [facility] - [place] #2 [place] [address] Oswaldo Serrano MD #[address] [address] Social History Tobacco Use Types Packs/Day Years [...] often do you attend chur ch or samaritan services? Never 11/09/2023 Do you belong to [...] Score - Questions 1-9 0 11/0 10/2023 [facility] Occupat ional [facility] - Occupational [...] things Not at all 08/10/2024 1:59 PM Trudi Hutchison CMA Feeling down, depressed, or hopeless Not at all 08/10/2024 1:59 PM Trudi Hutchison CMA * Over the past 2 weeks, how often have you been bothered by any of the following problems? Question Answer Date of Assessment Author Patient Health Questionnaire -2 Score 0 08/10/2024 1:59 PM Trudi Hutchison CMA documented as of this encounter Progress Notes * Hina Ng, RN - 08/09/2024 11:36 AM CDT Medical supply Activstyle form has bene placed in . [facility] folder for signature * Tina Cortes CMA - 08/09/2024 11:36 AM CDT Form completed and faxed back successfully to [employer] Fax #: [phone] NG TEACHER documented in this encounter Plan of Treatment Upcoming Encounters Date Type Department Care Team (Late st Contact Info) Description 10/08/2024 2:15 PM ACTING TEACHER Office Visit [facility]YS[facility]IAN GROUP UROLOGY #2 [place] [address] Orlin Urbina APRN, APPLICATION DEVELOPMENT INTERN #2 [place] [address] 10/18/2024 2:15 PM ACTING TEACHER Appointment [facility] Mammography 1 [place] [address] Oswaldo Serrano MD #[address] [address] Discharge Disposition: Discharged to home or Selfcare 11/29/2024 2:30 PM ACTING TEACHER Office Visit [facility] - [place] #2 [place] [address] Oswaldo Serrano MD #[address] [address] 11/30/2024 3:00 PM ACTING TEACHER Office Visit [facility] - Endocrinology - [place] #2 [facility] [place] [address] Ok Jorge MD #2 [facility] [address] [place] [address] documented as of this encounter Visit Diagnoses Not on filedocumented in this encounter Additional Health Concerns Assessment Noted Time PHQ-9 Depression Total Score: 0 08/09/20 23 2:56 PM CDT documented as of this encounter Care Teams Felting Machine Operator Relationship Specialty Start Date End Date Oswaldo Serrano MD #[address] [address] PCP - General Family Medicine 05/19/17 Angel Crowe DPM #[address] [address] Consulting Physician Podiatry 06/16/17 Mora Fritz [place] Behavioral Health Navigator 06/15/18 Ok Jorge MD #[address] [address] Consulting Physician Endocrinology 05/12/22 Orlin Urbina, EXTERMINATOR, APPLICATION DEVELOPMENT INTERN #2 [place] [address] Nurse Practitioner Advanced Practice Nurse 11/09/22 documented as of this encounter
--- OUTSIDE RECORDS SUMMARY | 2024-10-07 00:20 | XMS_ITS | Encounter Summary ---
Author Organization [facility] Address [address] [place] [address] Phone Care Team Providers Care Stringed Instrument Tuner Name Role Phone Oswaldo Serrano MD Primary Care Provider [phone] Angel Crowe DPM Unavailable [phone] Mora Fritz Unavailable Unavailable Ok Jorge MD Unavailable Orlin Urbina APRN, HOUSE CARPENTER HELPER Unavailable + [phone] Encounter Details Date Type Department Care Team (Late st Contact Info) Description 06/29/2024 Telephone [facility] [place] [facility] #2 [place] [address] Oswaldo Serrano MD #2 [facility] [id number] Social History Tobacco Use Types Packs/Day Years Used Date Smoking Tobacco: Never Smokeless Tobacco: Never Alcohol Use Standard Drinks/Week Comments No 0 (1 standard drink = 0.6 oz pur e alcohol) [facility] Utilities Answer Date Recorded In [...] often do you attend chur ch or hoahaoism services? Never 11/09/2023 Do you belong to any clubs o r organizations such as christianity groups, unions, fraternal or athletic groups, or [...] Total Score - Questions 1-9 0 07/12 [facility] of Occupat ional Health - Occupational [...] Telephone Encounter - Connie Gamez RN - 07/02/2024 10:34 AM CDT Returned call to Mitra at [facility] to let her know if Provider would follow her Home Health orders. Informed Mitra per PCP Yes, I can follow her but only if she is being discharged to her home. If she is going to a nursinghome, then she has to be followed by the doctor at the half-way / Rehab facility. If she is indeed coming home, please scheduled her to be seen in our [facility] clinic this week. Thanks! Says they are currently trying to get insurance approval for Home Health, will make note that patient needs an appointment as well. * Telephone Encounter - Oswaldo Serrano MD - 07/01/2024 8:36 PM CDT Yes, I can follow her but only if she is being discharged to her home. If she is going to a nursinghome, then she has to be followed by the doctor at the half-way / Rehab facility. If she is indeed coming home, please scheduled her to be seen in our [facility] clinic this week. Thanks! * Telephone Encounter - Jennifer Buckley RN - 06/29/2024 3:28 PM CDT Received call from [facility]. Pt is currently admitted to [facility] with UTI and A Fib with RVR. Possible D/C over the weekend. Hospital wanting PT/OT and half-way care upon discharge. Nurse wanting to see if Dr. Serrano will follow. documented in this encounter Plan of Treatment Upcoming Encounters Date Type Department Care Team (Late st Contact Info) Description 10/08/2024 2:15 PM DAIRY GRAZER Office Visit [facility] PHYSICIAN GROUP UROLOGY #2 [place] [address] Orlin Urbina, PALEOLOGY TEACHER, HOUSE CARPENTER HELPER #2 [place] [address] 10/18/2024 2:15 PM DAIRY GRAZER Appointment [facility] Mammography 1 [place] [address] Oswaldo Serrano MD #[address] [address] Discharge Disposition: Discharged to home or Selfcare 11/29/2024 2:30 PM DAIRY GRAZER [facility] - [facility] Medicine [facility] [place] #2 [place] [address] Oswaldo Serrano MD #[address] [address] 11/30/2024 3:00 PM DAIRY GRAZER Office Visit [facility] Endocrinology - [place] #2 [place] [address] Ok Jorge MD #[address] [address] documented as of this encounter Visit Diagnoses Not on filedocumented in this encounter Additional Health Concerns Assessment Noted Time PHQ-9 Depression Total Score: 0 08/09/20 23 2:56 PM CDT documented as of this encounter Care Teams Stringed Instrument Tuner Relationship Specialty Start Date End Date Oswaldo Serrano MD #[address] [address] PCP - General Family Medicine 05/19/17 Angel Crowe DPM #[address] [address] Consulting Physician Podiatry 06/16/17 Mora Fritz [place] Behavioral Health Navigator 06/15/18 Ok Jorge MD #[address] [address] Consulting Physician Endocrinology 05/12/22 Orlin Urbina, PALEOLOGY TEACHER, HOUSE CARPENTER HELPER #2 [place] [address] Nurse Practitioner Advanced Practice Nurse 11/09/22 documented as of this encounter
--- OUTSIDE RECORDS SUMMARY | 2024-10-07 00:20 | XMS_ITS | Encounter Summary ---
Author Organization [facility] Address [address] [place] [address] Phone Care Team Providers Care Raw Stock Drier Tender Name Role Phone Oswaldo Serrano MD Primary Care Provider [phone] Angel Crowe DPCiara Unavailable Mora Fritz Unavailable Unavailable Ok Jorge MD Unavailable Orlin Urbina APRN, POLYGRAPH EXAMINER Unavailable + [phone] Reason for Visit * Reason Onset Date Comments Results 02/27/2024 Encounter Details Date Type Department Care Team (Late st Contact Info) Description 02/27/2024 Telephone [facility] #2 [place] [address] Oswaldo Serrano MD #[address] [address] Results Social History Tobacco Use Types Packs/Day Years Used Date Smoking Tobacco: Never Smokeless Tobacco: Never Alcohol Use Standard Drinks/Week Comments No 0 (1 standard drink = 0.6 oz pur e alcohol) [facility] Utilities Answer Date Recorded In the [...] often do you attend chur ch or buddhist services? Never 11/09/2023 Do you belong to [...] Total Score - Questions 1-9 0 07/12 [facility] of Occupat ional Health - Occupational Stress [...] encounter Miscellaneous Notes * Telephone Encounter - Radha Casas RN - 02/27/2024 5:28 PM CDT Spoke to pt's sister Dilia, on PRD. Gave provider's message. Dilia has some questions about diflucan, asked provider in office and sent MyChart message with her advise. * Telephone Encounter - Radha Casas RN - 02/27/2024 5:23 PM CDT ----- Message from Oswaldo Serrano MD sent at 02/27/2024 6:42 AM CDT ----- Let her know I have called in Macrobid antbiotic for her UTI. Med order entered. Thanks! documented in this encounter Plan of Treatment Upcoming Encounters Date Type Department Care Team (Late st Contact Info) Description 10/08/2024 2:15 PM ALLOPATHIC DOCTOR Office Visit [facility] UROLOGY #2 [place] [address] Orlin Urbina FOOTWEAR FACTORY WORKER, POLYGRAPH EXAMINER #2 [place] [address] 10/18/2024 2:15 PM ALLOPATHIC DOCTOR [facility]ment [facility] 1 [place] [address] Oswaldo Serrano MD #2 [facility] [address] [place] [address] Discharge Disposition: Discharged to home or Selfcare 11/29/2024 2:30 PM ALLOPATHIC DOCTOR Office Visit [facility] - [place] #2 [place] [address] Oswaldo Serrano MD #2 [facility] [address] [place] [address] 11/30/2024 3:00 PM ALLOPATHIC DOCTOR Office Visit [facility] - Endocrinology - [place] #2 [place] [address] Ok Jorge MD #2 [facility] [address] [place] [address] documented as of this encounter Visit Diagnoses Not on filedocumented in this encounter Additional Health Concerns Assessment Noted Time PHQ-9 Depression Total Score: 0 08/09/20 23 2:56 PM CDT documented as of this encounter Care Teams Raw Stock Drier Tender Relationship Specialty Start Date End Date Oswaldo Serrano MD #2 [facility] [address] [place] [address] PCP - General Family Medicine 05/19/17 Angel Crowe DPM #2 [facility] [address] [place] [address] Consulting Physician Podiatry 06/16/17 Mora Fritz [place] Behavioral Health Navigator 06/15/18 Ok Jorge MD #2 [facility] [address] [place] [address] Consulting Physician Endocrinology 05/12/22 Orlin Urbina APRN, POLYGRAPH EXAMINER #2 [place] [address] Nurse Practitioner Advanced Practice Nurse 11/09/22 documented as of this encounter
--- OUTSIDE RECORDS SUMMARY | 2024-10-07 00:20 | XMS_ITS | Encounter Summary ---
Author Organization [facility] Address [address] [place] [address] Phone Care Team Providers Care Director Of Guidance In [employer] Name Role Phone Oswaldo Serrano MD Primary Care Provider [phone] Angel Crowe DPCiara Unavailable Mora Fritz Unavailable Unavailable Ok Jorge MD Unavailable Orlin Urbina APRN, CULTURAL HISTORIAN Unavailable Reason for Visit * Reason Comments Medication Refill Encounter Details Date Type Department Care Team (Late st Contact Info) Description 08/06/2024 Refill [facility] - [place] #2 [place] [address] Oswaldo Serrano MD #[address] [address] Medication Refill Social History Tobacco Use Types Packs/Day Years Used Date Smoking Tobacco: Never Smokeless Tobacco: Never Alcohol Use Standard Drinks/Week Comments No 0 (1 standard drink = 0.6 oz pur e alcohol) [facility] Utilities Answer Date Recorded In the [...] often do you attend chur ch or presybeterian services? Never 11/09/2023 Do you belong to any clubs o r organizations such as yazdanism groups, unions, fraternal or athletic groups, or [...] Total Score - Questions 1-9 0 07/12 [facility] [place] of Occupat ional Health - Occupational Stress [...] Telephone Encounter - Mica Morales RN - 08/07/2024 8:51 AM CDT Medication(s) refilled and signed per [facility] Chronic Medication Refill Standing Order for Pediatricand Adult Patients. Requested Prescriptions Pending Prescriptions Disp Refills omeprazole (PriLOSEC) 20 MG CAPSULE DELAYED RELEASE [Pharmacy Med Name: OMEPRAZOLE 20MG CAPSULES] 90 Capsule 1 Sig: Take 1 Capsule by mouth daily. Proton Pump Inhibitors Protocol Passed - 08/06/2024 5:08 PM Passed - Visit with relevant provider in past 12 months or upcoming 90 days Recent Visits Date Type Provider Dept 03/08/24 Telemedicine Oswaldo Serrano MD [facility] 02/23/24 Office Visit Oswaldo Serrano MD [facility] 11/09/23 Office Visit Oswaldo Serrano MD [facility] 08/09/23 Office Visit Oswaldo Serrano MD [facility] Showing recent visits within past 365 days and meeting all other requirements Future Appointments Date Type Provider Dept 08/10/24 Appointment Connor Yuan APRN, CULTURAL HISTORIAN [facility] Showing future appointments within next 90 days and meeting all other requirements documented in this encounter Plan of Treatment Upcoming Encounters Date Type Department Care Team (Late st Contact Info) Description 10/08/2024 2:15 PM ENERGY SYSTEMS ENGINEER Office Visit [facility] PHYSICIAN GROUP UROLOGY #2 [place] [address] Orlin Urbina APRN, CULTURAL HISTORIAN #2 [place] [address] 10/18/2024 2:15 PM ENERGY SYSTEMS ENGINEER [facility] 1 [place] [address] Oswaldo Serrano MD #[address] [address] Discharge Disposition: Discharged to home or Selfcare 11/29/2024 2:30 PM ENERGY SYSTEMS ENGINEER Office Visit [facility] - Family Medicine [facility] #2 [place] [address] Oswaldo Serrano MD #[address] [address] 11/30/2024 3:00 PM ENERGY SYSTEMS ENGINEER Office Visit [facility] - Endocr[facility]ology - [place] #2 [place] [address] Ok Jorge MD #2 [facility] [address] [place] [address] documented as of this encounter Visit Diagnoses Not on filedocumented in this encounter Additional Health Concerns Assessment Noted Time PHQ-9 Depression Total Score: 0 08/09/20 23 2:56 PM CDT documented as of this encounter Care Teams Director Of Guidance In Public Schools Relationship Specialty Start Date End Date Oswaldo Serrano MD #[address] [address] PCP - General Family Medicine 05/19/17 Angel Crowe DPM #[address] [address] Consulting Physician Podiatry 06/16/17 Mora Fritz [place] Behavioral Health Navigator 06/15/18 Ok Jorge MD #[address] [address] Consulting Physician Endocrinology 05/12/22 Orlin Urbina NAVAL AIRCREWMAN TACTICAL HELICOPTER, CULTURAL HISTORIAN #2 [place] [address] Nurse Practitioner Advanced Practice Nurse 11/09/22 documented as of this encounter
--- OUTSIDE RECORDS SUMMARY | 2024-10-07 00:21 | XMS_ITS | Encounter Summary ---
Author Organization [facility] Address [address] [place] [address] Phone Care Team Providers Care Applied Marine Physics Professor Name Role Phone Oswaldo Serrano MD Primary Care Provider [phone] Angel Crowe DPM Unavailable [phone] Mora Fritz Unavailable Unavailable Ok Jorge MD Unavailable Orlin Urbina APRN, AEGIS CONSOLE OPERATOR TRACK Unavailable [phone] Reason for Visit * Reason Onset Date Comments Medication Refill 01/20/2024 Encounter Details Date Type Department Care Team (Late st Contact Info) Description 01/20/2024 MyChart RX Renewal [facility] - Family [facility] #2 [place] [address] Oswaldo Serrano MD #[address] [id number] Medication Renewal Reviewed Social History Tobacco Use [...] often do you attend chur ch or pentecostal services? Never 11/09/2023 Do you belong to [...] Total Score - Questions 1-9 0 07/12 [facility] [place] of Occupat ional Health - Occupational Stress [...] place to sleep or slept in a retirement (including now)? No 11/09/2023 Education Answer Date [...] Telephone Encounter - Mica Morales RN - 01/20/2024 3:31 PM CDT Medication(s) refilled and signed per [facility] Chronic Medication Refill Standing Order for Pediatricand Adult Patients. Requested Prescriptions Pending Prescriptions Disp Refills omeprazole (PriLOSEC) 20 MG CAPSULE DELAYED RELEASE 90 Capsule 1 Sig: Take 1 Capsule by mouth daily. Proton Pump Inhibitors Protocol Passed - 01/20/2024 12:19 PM Passed - Visit with relevant provider in past 12 months or upcoming 90 days Recent Visits Date Type Provider Dept 11/09/23 Office Visit Oswaldo Serrano MD [facility] 08/09/23 Office Visit Oswaldo Serrano MD [facility] 05/03/23 Office Visit Oswaldo Serrano MD [facility] 02/01/23 Office Visit Oswaldo Serrano MD [facility] Showing recent visits within past 365 days and meeting all other requirements Future Appointments Date Type Provider Dept 02/14/24 Appointment Oswaldo Serrano MD [facility] Showing future appointments within next 90 days and meeting all other requirements potassium chloride SA (KLORCON M) 20 MEQ Tablet Controlled Release 90 Tablet 1 Sig: Take 1 Tablet by mouth daily. Potassium Supplement Protocol Passed - 01/20/2024 12:19 PM Passed - Normal serum potassium in past 12 months POTASSIUM Date Value Ref Range Status 11/09/2023 4.0 3.5 - 5.1 mmol/L Final Passed - Visit with relevant provider in past 12 months or upcoming 90 days Recent Visits Date Type Provider Dept 11/09/23 Office Visit Oswaldo Serrano MD [facility] 08/09/23 Office Visit Oswaldo Serrano MD [facility] 05/03/23 Office Visit Oswaldo Serrano MD [facility] 02/01/23 Office Visit Oswaldo Serrano MD [facility] Showing recent visits within past 365 days and meeting all other requirements Future Appointments Date Type Provider Dept 02/14/24 Appointment Oswaldo Serrano MD [facility] Showing future appointments within next 90 days and meeting all other requirements documented in this encounter Plan of Treatment Upcoming Encounters Date Type Department Care Team (Late st Contact Info) Description 10/08/2024 2:15 PM LANDFILL GAS PLANT FIELD TECHNICIAN Office Visit [facility]YSICIAN GROUP UROLOGY #2 [place] [address] Orlin Urbina, PAPER PLATE MACHINE TENDER, AEGIS CONSOLE OPERATOR TRACK #2 [place] [address] 10/18/2024 2:15 PM LANDFILL GAS PLANT FIELD TECHNICIAN [facility] 1 [place] [address] Oswaldo Serrano MD #[address] [address] Discharge Disposition: Discharged to home or Selfcare 11/29/2024 2:30 PM LANDFILL GAS PLANT FIELD TECHNICIAN [facility] - [facility] #2 [place] [address] Oswaldo Serrano MD #[address] [address] 11/30/2024 3:00 PM LANDFILL GAS PLANT FIELD TECHNICIAN Office Visit [facility] - Endocrinology - [place] #2 [place] [address] Ok Jorge MD #[address] [address] documented as of this encounter Visit Diagnoses Diagnosis Chronic congestive heart failure, unspecified heart failure type (HCC) documented in this encounter Additional Health Concerns Assessment Noted Time PHQ-9 Depression Total Score: 0 08/09/20 23 2:56 PM CDT documented as of this encounter Care Teams Applied Marine Physics Professor Relationship Specialty Start Date End Date Oswaldo Serrano MD #[address] [address] PCP - General Family Medicine 05/19/17 Angel Crowe DPM #[address] [address] Consulting Physician Podiatry 06/16/17 Mora Fritz [place] Behavioral Health Navigator 06/15/18 Ok Jorge MD #[address] [address] Consulting Physician Endocrinology 05/12/22 Orlin Urbina APRN, AEGIS CONSOLE OPERATOR TRACK #2 [place] [address] Nurse Practitioner Advanced Practice Nurse 11/09/22 documented as of this encounter
--- OUTSIDE RECORDS SUMMARY | 2024-10-07 00:21 | XMS_ITS | Encounter Summary ---
Author Organization [facility] Care Team Providers Care Tube Mill Operator Name Role Phone Oswaldo Serrano MD Primary Care Provider [phone] Angel Crowe DPCiara Unavailable [phone] Mora Fritz Unavailable Unavailable Ok Jorge MD Unavailable Orlin Urbina APRN, ROLL PLUGGER MACHINE OPERATOR Unavailable [phone] Encounter Details Date Type Department Care Team (Latest Contact Info) Description 01/04/2024 Travel Social History Tobacco Use Types Packs/Day Years Used Date Smoking Tobacco: Never Smokeless Tobacco: Never Alcohol Use Standard Drinks/Week Comments No 0 (1 standard drink = 0.6 oz pur e alcohol) [facility] Utilities Answer Date Recorded In the past 12 months has Fanne[employer], gas, oil, or water company threatened to [...] any clubs o r organizations such as bahai groups, unions, fraternal or athletic groups, or [...] Total Score - Questions 1-9 0 07/12 [facility] of Occupat ional Health - Occupational [...] st Contact Info) Description 10/08/2024 2:15 PM MARKETING INTELLIGENCE MANAGER Office Visit [facility] PHYSICIAN GROUP UROLOGY #2 [place] [address] Orlin Urbina APRN, ROLL PLUGGER MACHINE OPERATOR #2 [place] [address] 10/18/2024 2:15 PM MARKETING INTELLIGENCE MANAGER Appointment [facility] Mammography 1 [place] [address] Oswaldo Serrano MD #[address] [address] Discharge Disposition: Discharged to home or Selfcare 11/29/2024 2:30 PM MARKETING INTELLIGENCE MANAGER Office Visit [facility] - Family Medicine [facility] #2 [place] [address] Oswaldo Serrano MD #[address] [address] 11/30/2024 3:00 PM MARKETING INTELLIGENCE MANAGER Office Visit [facility] - Endocrinology [facility] #2 [place] [address] Ok Jorge MD #[address] [place] [address] documented as of this encounter Visit Diagnoses Not on filedocumented in this encounter Additional Health Concerns Assessment Noted Time PHQ-9 Depression Total Score: 0 08/09/20 23 2:56 PM CDT documented as of this encounter Care Teams Tube Mill Operator Relationship Specialty Start Date End Date Oswaldo Serrano MD #[address] [address] PCP - General Family Medicine 05/19/17 Angel Crowe DPM #[address] [address] Consulting Physician Podiatry 06/16/17 Mora Fritz [place] Behavioral Health Navigator 06/15/18 Ok Jorge MD #[address] [address] Consulting Physician Endocrinology 05/12/22 Orlin Urbina APRN, ROLL PLUGGER MACHINE OPERATOR #2 [place] [address] Nurse Practitioner Advanced Practice Nurse 11/09/22 documented as of this encounter
--- OUTSIDE RECORDS SUMMARY | 2024-10-07 00:21 | XMS_ITS | Encounter Summary ---
Author Organization [facility] Address [address] [place] [address] Phone Care Team Providers Care Group Manager Name Role Phone Oswaldo Serrano MD Primary Care Provider [phone] Angel Crowe DPM Unavailable [phone] Mora Fritz Unavailable Unavailable Ok Jorge MD Unavailable Orlin Urbina APRN, CLOUD OPERATIONS ENGINEER Unavailable + [phone] Reason for Visit * Reason Comments Diabetes Mellitus Encounter Details Date Type Department Care Team (Late st Contact Info) Description 01/04/2024 3:15 PM CDT [facility] Visit [facility] - [place] #2 [place] [address] Ok Jorge MD #[address] [address] Type 2 diabetes mellitus treated with insulin (HCC) (Primary Dx); Insulin dose changed (HCC); Class 3 severe obesity due to excess calories with serious comorbidity and body mass index (BMI) of 45.0 to 49.9 in adult (HCC); Hypoglycemia Discharge Disposition: Discharged to home or Selfcare Social History Tobacco Use Types Packs/Day Years Used Date Smoking Tobacco: Never Smokeless Tobacco: Never Tobacco Cessation:Counseling Given: Not Answered Alcohol Use Standard Drinks/Week Comments No 0 (1 standard drink = 0.6 oz pur e alcohol) [facility] Utilities Answer Date Recorded In the past 12 months has e Naytev, gas, oil, or water [facility] threatened to shut off services in your [...] week 11/09/2023 How often do you attend [facility] or baptism services? Never 11/09/2023 Do you belong to [...] Recorded Total Score - Questions 1-9 0 10/3 10/2022 [facility] of Occupat ional Health - Occupational Stress [...] Sign Reading Time Taken Comments Blood Pressure 140/87 01/04/2024 3:32 PM CDT Pulse 92 01/04/2024 3:32 PM CDT Temperature 36.7 ??C (98 ??F) 01/04/2024 3:32 PM CDT Respiratory Rate 22 01/04/2024 3:32 PM CDT Oxygen Saturation 98% 01/04/2024 3:32 PM CDT Inhaled Oxygen Concentration - - Weight 123.4 kg (272 lb) 01/04/2024 3:32 PM CDT Height - - Body Mass Index 45.26 11/09/2023 3:46 PM REED MAN documented in this encounter Patient Instructions * Patient Instructions* Ok Jorge MD - 01/04/2024 3:15 PM CDT Please take Lantus 18 units in the morning Please take NovoLog (Humalog) 16-13-16 units before each meal Please use correctional [...] 400 +9 UNITS ABOVE 400 +10 UNITS documented in this encounter Progress Notes * Ok Jorge MD - 01/04/2024 3:15 PM CDT Subject&Objective Loretta Penn is a 63-year-old woman who returned to the Endocrinology office to discuss management of type 2 diabetes mellitus. 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 Other pertinent health history includes hypertension, dyslipidemia, and obesity. The patient was initially diagnosed with diabetes approximately >10 years ago. Currently, the patient takes Lantus 18 units in the morning, Humalog 16 units with breakfast, 13 units with lunch, and 13 units with supper for management of hyperglycemia. The patient reports infrequent, mild hypoglycemic events with intact symptoms of hypoglycemia awareness. The patient denied severe low blood sugar events requiring third republican intervention. Review of her CGM download for the past four weeks showed morning values in the range of 180 to 230 mg/dL, lunch values ranging from 200to 250 mg/dL, dinner values in the range of 110 to 150 mg/dL, and bedtime values ranging from 200 to 260 mg/dL. Average blood glucose was 223 mg/dL +/-36. Hemoglobin A1c obtained by POC testing todaywas 8.9%, increased from the previous measurement of 8.2% obtained in September 2023. Physical Exam Vitals: 01/04/24 1532 BP: 140/87 BP Location: Right Arm BP Position: Sitting BP Cuff Size: Regular Pulse: 92 Resp: 22 Temp: 98 ??F (36.7 ??C) TempSrc: Temporal SpO2: 98% Weight: 272 lb (123.4 kg) Constitutional: appears well-developed and well-nourished. No acute distress. Head: Normocephalic and atraumatic. Pulmonary/Chest: Effort normal Lab Results Component Value Date HGBA1C 8.9 (A) 01/04/2024 Lab Results Component Value Date HEMATOCRIT 49.7 (H) 11/09/2023 Lab Results Component Value Date CREATININE 1.03 (H) 11/09/2023 GFRNA 54 (L) 11/09/2023 CALCIUM 9.2 11/09/2023 SGPTALT 22 11/09/2023 Lab Results Component Value Date SODIUM 140 11/09/2023 POTASSIUM 4.0 11/09/2023 CHLORIDE 103 11/09/2023 CO2VEN 27 11/09/2023 MAGNESIUM 2.0 12/13/2020 Her CGM download was reviewed. Assessment and Plan Assessment Loretta Penn is a middle-aged woman with type 2 diabetes mellitus whose glycemic control was suboptimal based on both review of her CGM record and today's hemoglobin A1c measurement. Treatment consideration and lifestyle modification were discussed with her and her sister at some length. She will change Humalog to 16-13-16 units before each meal and reduce high carb snack overnight for management of hyperglycemia. The patient will return for office reevaluation in 3 months. PLAN: 1. Take Lantus 18 units in the morning 2. Take Humalog 16-13-16 units before each meal 3. Correctional factor insulin dosed at 1:30 if CBG is > 140 mg/dl 4. Monitor blood sugar QAC/QHS 5. Bring CBG log for review 6. Contact Endocrinology Clinic for low blood sugar events 7. RTC in 3 months Obesity PLAN: 1. Low carb and calorie diet 2. Avoid snack and beverage between meal and at bedtime Hypoglycemia PLAN: Consistent CHO diet Rule of 15 Total time spent on this encounter on this date of service, including pre-visit review of separately obtained history, rryu-pa-[id number] interaction performing medically appropriate physical exam, patientcounseling/education, interpretation of diagnostic results, care coordination and documentation was32 minute Ok Jorge MD 01/04/2024 documented in this encounter Plan of Treatment Upcoming Encounters Date Type Department Care Team (Late st Contact Info) Description 10/08/2024 2:15 PM REED MAN Office Visit [facility] #2 [place] [address] Orlin Urbina APRN, CLOUD OPERATIONS ENGINEER #2 [place] [address] 10/18/2024 2:15 PM REED MAN Appointment [facility] Mammography 1 [place] [address] Oswaldo Serrano MD #[address] [address] Discharge Disposition: Discharged to home or Selfcare 11/29/2024 2:30 PM REED MAN Office Visit [facility] Family Medicine [facility] #2 [place] [address] Oswaldo Serrano MD #[address] [address] 11/30/2024 3:00 PM REED MAN Office Visit [facility] Endocrinology - [place] #2 [place] [address] Ok Jorge MD #[address] [address] documented as of this encounter Visit Diagnoses Diagnosis Type 2 diabetes mellitus treated with insulin ([facility])- Primary Insulin dose changed (HCC) Class 3 severe obesity due to excess calories with serious comorbidity and body mass index (BMI) of 45.0 to 49.9 in adult (HCC) Hypoglycemia Hypoglycemia, unspecified documented in this encounter Additional Health Concerns Assessment Noted Time PHQ-9 Depression Total Score: 0 08/09/20 23 2:56 PM CDT documented as of this encounter Care Teams Group Manager Relationship Specialty Start Date End Date Oswaldo Serrano MD #[address] [address] PCP - General Family Medicine 05/19/17 Angel Crowe DPM #[address] [address] Consulting Physician Podiatry 06/16/17 Mora Fritz Behavioral Health Navigator 06/15/18 Ok Jorge MD #[address] [address] Consulting Physician Endocrinology 05/12/22 Orlin Urbina APRN, YUDI #2 [place] [address] Nurse Practitioner Advanced Practice Nurse 11/09/22 documented as of this encounter
--- OUTSIDE RECORDS SUMMARY | 2024-10-07 00:21 | XMS_ITS | Encounter Summary ---
Author Organization [facility] Address [address] [place] [address] Phone Care Team Providers Care Dental Instructor Name Role Phone Oswaldo Serrano MD Primary Care Provider [phone] Angel Crowe DPM Unavailable [phone] Mora Fritz Unavailable Unavailable Ok Jorge MD Unavailable Orlin Urbina APRN, CORE INSPECTOR Unavailable + [phone] Reason for Visit * Reason Onset Date Comments Medication Refill 12/02/2023 Encounter Details Date Type Department Care Team (Late st Contact Info) Description 12/02/2023 MyChart RX Renewal [facility] Family [facility] #2 [place] [address] Oswaldo Serrano MD #[address] [address] Medication Renewal Reviewed Social History Tobacco Use Types Packs/Day Years Used Date Smoking Tobacco: Never Smokeless Tobacco: Never Alcohol Use Standard Drinks/Week Comments No 0 (1 standard drink = 0.6 oz pur e alcohol) [facility] Utilities Answer Date Recorded In the [...] often do you attend chur ch or quaker services? Never 11/09/2023 Do you belong to [...] Total Score - Questions 1-9 0 07/12 [facility] [place] of Occupat ional Health - Occupational Stress [...] place to sleep or slept in a half-way (including now)? No 11/09/2023 Education Answer Date [...] Telephone Encounter - Mica Morales RN - 12/02/2023 2:16 PM CST Medication failed the protocol, provider to review and approve the medication order if appropriate. Requested Prescriptions Pending Prescriptions Disp Refills nortriptyline (PAMELOR) 10 MG Capsule 90 Capsule 1 Sig: Take 1 Capsule by mouth nightly. Not Delegated - Tricyclic Agents Protocol Failed - 12/02/2023 12:15 PM Failed - This refill cannot be delegated Passed - Visit with relevant provider in past 12 months or upcoming 90 days Recent Visits Date Type Provider Dept 11/09/23 Office Visit Oswaldo Serrano MD [facility] 08/09/23 Office Visit Oswaldo Serrano MD [facility] 05/03/23 Office Visit Oswaldo Serrano MD [facility] 02/01/23 Office Visit Oswaldo Serrano MD [facility] 01/13/23 Telemedicine Oswaldo Serrano MD [facility] Showing recent visits within past 365 days and meeting all other requirements Future Appointments Date Type Provider Dept 02/14/24 Appointment Oswaldo Serrano MD [facility] Showing future appointments within next 90 days and meeting all other requirements RMAN documented in this encounter Plan of Treatment Upcoming Encounters Date Type Department Care Team (Late st Contact Info) Description 10/08/2024 2:15 PM CHAIRMAN Office Visit [facility] UR[facility]Y #2 [place] [address] Orlin Urbina APRN, CORE INSPECTOR #2 [place] [address] 10/18/2024 2:15 PM CHAIRMAN Appointment [facility] Mammography 1 [place] [address] Oswaldo Serrano MD #[address] [address] Discharge Disposition: Discharged to home or Selfcare 11/29/2024 2:30 PM CHAIRMAN Office Visit [facility] Family Medicine - [place] #2 [place] [address] Oswaldo Serrano MD #[address] [address] 11/30/2024 3:00 PM CHAIRMAN Office Visit [facility] - Endocrinology - [place] [address]2 [place] [address] Ok Jorge MD #[address] [address] documented as of this encounter Visit Diagnoses Not on filedocumented in this encounter Additional Health Concerns Assessment Noted Time PHQ-9 Depression Total Score: 0 08/09/20 23 2:56 PM CDT documented as of this encounter Care Teams Dental Instructor Relationship Specialty Start Date End Date [facility]aldo Serrano MD [facility] [address] PCP - General Family Medicine 05/19/17 Angel Crowe DPM [address] [address] Consulting Physician Podiatry 06/16/17 Mora Fritz Behavioral Health Navigator 06/15/18 Ok Jorge MD [address] [address] Consulting Physician Endocrinology 05/12/22 Orlin Urbina, VETERINARY VIRUS SERUM INSPECTOR, CORE INSPECTOR #[address] [place] [address] Nurse Practitioner Advanced Practice Nurse 11/09/22 documented as of this encounter
--- OUTSIDE RECORDS SUMMARY | 2024-10-07 00:21 | XMS_ITS | Encounter Summary ---
Author Organization [facility] Address [address] [place] [address] Phone Care Team Providers Care Funeral Pre Arrangement Counselor Name Role Phone Oswaldo Serrano MD Primary Care Provider [phone] Angel Crowe DPM Unavailable Mora Fritz Unavailable Unavailable Ok Jorge MD Unavailable Orlin Urbina APRN, HOOD FITTER Unavailable + [phone] Reason for Visit * Reason Onset Date Comments Medication Refill 12/12/2023 Encounter Details Date Type Department Care Team (Late st Contact Info) Description 12/12/2023 MyChart RX Renewal [facility] - Endocrinology - [place] #[address] [place] [address] Ok Jorge MD #[address] [address] Medication Renewal Reviewed Social History Tobacco Use Types Packs/Day Years Used Date Smoking Tobacco: Never Smokeless Tobacco: Never Alcohol Use Standard Drinks/Week Comments No 0 (1 standard drink = 0.6 oz pur e alcohol) [facility] Utilities Answer Date Recorded In [...] any clubs o r organizations such as restorationist groups, unions, fraternal or athletic groups, or [...] Total Score - Questions 1-9 0 07/12 [facility] [place] of Occupat ional Health - Occupational Stress [...] st Contact Info) Description 10/08/2024 2:15 PM CORING MACHINE OPERATOR Office Visit [facility] #[address] [place] [address] Orlin Urbina, CLOTH HANDLER, HOOD FITTER #[address] [place] [address] 10/18/2024 2:15 PM CORING MACHINE OPERATOR Appointment [facility] Mammography 1 [place] [address] Oswaldo Serrano MD #[address] [address] Discharge Disposition: Discharged to home or Selfcare 11/29/2024 2:30 PM CORING MACHINE OPERATOR Office Visit [facility] Family Medicine [facility] #2 [place] [address] Oswaldo Serrano MD #[address] [address] 11/30/2024 3:00 PM CORING MACHINE OPERATOR [facility] #2 [place] [address] Ok Jorge MD #[address] [address] documented as of this encounter Visit Diagnoses Not on filedocumented in this encounter Additional Health Concerns Assessment Noted Time PHQ-9 Depression Total Score: 0 08/09/20 23 2:56 PM CDT documented as of this encounter Care Teams Funeral Pre Arrangement Counselor Relationship Specialty Start Date End Date Oswaldo Serrano MD #[address] [address] PCP - General Family Medicine 05/19/17 Angel Crowe DPM #[address] [address] Consulting Physician Podiatry 06/16/17 Mora Fritz NE Behavioral Health Navigator 06/15/18 Ok Jorge MD #[address] [address] Consulting Physician Endocrinology 05/12/22 Orlin Urbina, JOHN, HOOD FITTER #2 [place] [address] Nurse Practitioner Advanced Practice Nurse 11/09/22 documented as of this encounter
--- OUTSIDE RECORDS SUMMARY | 2024-10-07 00:21 | XMS_ITS | Encounter Summary ---
Author Organization [facility] Address [address] [place] [address] Phone Care Team Providers Care Product Planner Name Role Phone Osawldo Serrano MD Primary Care Provider [phone] Angel Crowe DPM Unavailable [phone] Mora Fritz Unavailable Unavailable Ok Jorge MD Unavailable Orlin Urbina APRN, MATERIALS RESEARCH ENGINEER Unavailable + [phone] Reason for Visit * Radiology Services (Routine) - Closed Specialty Diagnoses / Procedures Referred By Contnay t Referred To Contact Radiology Diagnoses Abnormal mammogram Procedures SHABANA DIAG BILATERAL DIGITAL W CAD SHABANA DIAG BILATERAL DIGITAL W CAD W Oswaldo Andrews MD #[address] [address] Phone: tel: fax: Referral ID Status Reason Start Date Expiration Date Visits Re quested Visits Authorized [id number] Closed 10/18/2023 1 1 Encounter Details Date Type Department Care Team (Latest Contact Info) Description 12/01/2023 1:56 PM CANVAS MARKER - 12/01/2023 11:59 PM CANVAS MARKER Hospital Encounter [facility] Mammography [address] [place] [address] Oswaldo Serrano MD #[address] [place] [address] Discharge Disposition: Discharged to home or Selfcare Social History Tobacco Use Types Packs/Day Years Used Date Smoking Tobacco: Never Smokeless Tobacco: Never Alcohol Use Standard Drinks/Week Comments No 0 (1 standard drink = 0.6 oz pur e alcohol) [facility] Utilities Answer Date Recorded In the [...] often do you attend chur ch or faith services? Never 11/09/2023 Do you belong to any clubs o r organizations such as judaism groups, unions, fraternal or athletic groups, or [...] Total Score - Questions 1-9 0 07/12 [facility] - Occupational Stress Questionnaire Answer Date [...] on file documented as of this encounter Medications at Time of Discharge Blood Glucose Monitoring Suppl Device Test blood glucose 1x daily, E11.9, insulin dependent 1 Each 12/30/2022 Blood Glucose Monitoring Suppl Device Test blood glucose 4 times daily. E11.9, insulin dependent 1 Each 2019 Continuous Blood Gluc Commercial Green Building Designer (Dexcom G7 Commercial Green Building Designer) Device 1 Each by Does not apply [...] nostril as directed. 1 g 3 02/01/2023 Insulin Pen Needle (BD Pen Needle Trina [...] UNITS PER DAY 75 mL 1 07/18/2023 albuterol 108 (90 Base) MCG/ACT Aerosol Solution take 1-2 Puffs by inhalation every 4 hours as needed for Cough. 1 g 10/07/2021 4 carvedilol (COREG) 25 MG Tablet 25 mg 2 times daily. 05/06/2017 4 Continuous Blood Gluc Sensor (Dexcom G6 Sensor) Misc 10/05/2022 4 Continuous Blood Gluc Sensor (Dexcom G7 Sensor) [facility] 1 Each by Does not apply route every 10 days. Change sensor every 10 days. 3 Each 3 04/29/2023 4 Dapagliflozin Propanediol (Farxiga) 10 MG Tablet Take by mouth. 06/01/2022 4 docusate sodium (COLACE) 100 MG Capsule TAKE 1 CAPSULE BY MOUTH TWICE DAILY 60 Capsule 2 11/04/2023 4 escitalopram (LEXAPRO) 10 MG Tablet TAKE 1 TABLET BY MOUTH DAILY 90 Tablet 1 06/09/2023 4 furosemide (LASIX) 40 MG TabletIndications :Chronic congestive heart failure, unspecified heart failure type (HCC) TAKE 1 TABLET BY MOUTH DAILY 90 Tablet 2 07/18/2023 4 Glucose Blood (True Metrix Blood Glucose Test) Strip TEST USING ONE STRIP FOUR TIMES DAILY E11.9, insulin dependent 400 Each 3 12/24/2022 4 Glucose Blood Strip Use to test blood glucose 4x daily. E11.9, insulin dependent 400 Strip 3 07/25/2023 4 Glucose Blood Strip Use to test blood glucose 1x daily. E11.9, insulin dependent 100 Strip 3 02/09/2023 4 insulin glargine (Basaglar KwikPen) 100 UNIT/ML Solution Pen-injector 20 Units by Subcutaneous route every morning. 15 mL 1 07/18/2023 4 levothyroxine (SYNTHROID) 75 MCG Tablet Take 1 Tablet by mouth every morning. 90 Tablet 3 08/28/2023 4 nortriptyline (PAMELOR) 10 MG Capsule Take 1 Capsule by mouth nightly. 90 Capsule 1 06/07/2023 4 omeprazole (PriLOSEC) 20 MG CAPSULE DELAYED RELEASE TAKE 1 CAPSULE BY MOUTH DAILY 90 Capsule 1 07/17/2023 4 potassium chloride SA (KLORCON M) 20 MEQ Tablet Controlled ReleaseIndication s:Chronic congestive heart failure, unspecified heart failure type (HCC) Take 1 Tablet by mouth daily. 90 Tablet 1 07/17/2023 4 rivaroxaban (Xarelto) 20 MG Tablet Take 20 mg by mouth daily (with dinner). Take with food. 4 documented as of this encounter Plan of Treatment Upcoming Encounters Date Type Department Care Team (Late st Contact Info) Description 10/08/2024 2:15 PM CANVAS MARKER Office Visit [facility] UROLOGY #2 [place] [address] Orlin Urbina APRN, MATERIALS RESEARCH ENGINEER #2 [place] [address] 10/18/2024 2:15 PM CANVAS MARKER [facility] 1 [place] [address] Oswaldo Serrano MD #2 [facility] [address] [place] [address] Discharge Disposition: Discharged to home or Selfcare 11/29/2024 2:30 PM CANVAS MARKER Office Visit [facility] - [place] #2 [place] [address] Oswaldo Serrano MD #2 [facility] [address] [place] [address] 11/30/2024 3:00 PM CANVAS MARKER Office Visit [facility] - [place] #2 [place] [address] Ok Jorge MD #2 [facility] [address] [place] [address] documented as of this encounter Procedures Procedure Name Priority Date/Time Associated Diagnosis Comments SHABANA DIAG BILATERAL DIGITAL W CAD Routine 12/01/2023 3:15 PM CANVAS MARKER Abnormal mammogram documented in this encounter Results * SHABANA DIAG BILATERAL DIGITAL W CAD (12/01/2023 3:15 PM CANVAS MARKER) Anatomical Region Laterality Modality breast Bilateral Mammography 12/01/2023 2:48 PM CANVAS MARKER Narrative 12/02/2023 1:16 PM CANVAS MARKER - SHABANA DIAG BILATERAL DIGITAL W CAD [...] ??11/25/2022, 09/14/2022, 01/29/2022, 10/27/2021, and 10/17/2018 [facility]. ?? BREAST TISSUE:There are scattered fibroglandular [...] Arsalan Bocanegra M.D. ? ll/:12/01/2023 15:11:27 ?? Glass Embosser(s): Alicia ??RT Osorio(R)(M), [facility] letter sent: Normal Exam ?? Reading location: [...] dated: 11/25/2022, 09/14/2022, 01/29/2022, 10/27/2021, and 10/17/2018 [facility]. BREAST TISSUE:There are scattered fibroglandular densities in [...] signed by: Arsalan Bocanegra M.D. ll/:12/01/2023 15:11:27 Glass Embosser(s): RT Lauri(Selvin)(M), [facility] letter sent: Normal Exam Reading location: [facility] BI-RADS: 2 Benign us Oswaldo Serrano MD IMG MAMMO ORDERABLES Final Result documented in this encounter Visit Diagnoses Diagnosis Abnormal mammogram Abnormal mammogram, unspecified documented in this encounter Additional Health Concerns Assessment Noted Time PHQ-9 Depression Total Score: 0 08/09/20 23 2:56 PM CDT documented as of this encounter Care Teams Product Planner Relationship Specialty Start Date End Date Oswaldo Serrano MD #2 [facility] [address] [place] [address] PCP - General Family Medicine 05/19/17 Angel Crowe DPM #2 [facility] [address] [place] [address] Consulting Physician Podiatry 06/16/17 Mora Fritz PA Behavioral Health Navigator 06/15/18 Ok Jorge MD #[address] [address] Consulting Physician Endocrinology 05/12/22 Orlin Urbina APRN, MATERIALS RESEARCH ENGINEER #2 [place] [address] Nurse Practitioner Advanced Practice Nurse 11/09/22 documented as of this encounter
--- OUTSIDE RECORDS SUMMARY | 2024-10-07 00:21 | XMS_ITS | Encounter Summary ---
Author Organization [facility] Address [address] [place] [address] Phone Care Team Providers Care Food Safety Manager Name Role Phone Oswaldo Serrano MD Primary Care Provider [phone] Angel Crowe DPM Unavailable Mora Fritz Unavailable Unavailable Ok Jorge MD Unavailable Orlin Urbina APRN, MARINE FISHERIES TECHNICIAN Unavailable [phone] Encounter Details Date Type Department Care Team (Late st Contact Info) Description 11/09/2023 Telephone [facility] #[address] [place] [address] Oswaldo Serrano MD [address] [id number] Social History Tobacco Use Types Packs/Day Years Used Date Smoking Tobacco: Never Smokeless Tobacco: Never Alcohol Use Standard Drinks/Week Comments No 0 (1 standard drink = 0.6 oz pur e alcohol) [facility] Utilities Answer Date Recorded In [...] often do you attend chur ch or adventist services? Never 11/09/2023 Do you belong to any clubs o r organizations such as mu-ism groups, unions, fraternal or athletic groups, or [...] Total Score - Questions 1-9 0 07/12 [facility] of Occupat ional Health - Occupational Stress [...] as of this encounter Functional Status * Audit-C Score Answer Date of Assessment Author 0 11/09/2023 4:01 PM CERTIFIED MORTICIAN [facility] * Within the last year, have you been humiliated or emotionally abused in other ways by your partner or ex-partner? Answer Date of Assessment Author No 11/09/2023 4:01 PM CERTIFIED MORTICIAN [facility] * Within the last year, have you been afraid of your partner or ex-partner? Answer Date of Assessment Author No 11/09/2023 4:01 PM CERTIFIED MORTICIAN [facility] * Within the last year, have you been raped or forced to have any kind of sexual activity by your partner or ex-partner? Answer Date of Assessment Author No 11/09/2023 4:01 PM CERTIFIED MORTICIAN [facility] * Within the last year, have you been kicked, hit, slapped, or otherwise physically hurt by your partner or ex-partner? Answer Date of Assessment Author No 11/09/2023 4:01 PM CERTIFIED MORTICIAN [facility] * Q1: How often do you have a drink containing alcohol? Answer Date of Assessment Author Never 11/09/2023 4:01 PM CERTIFIED MORTICIAN [facility] * Q2: How many drinks containing alcohol do you have on a typical day when you are drinking? Answer Date of Assessment Author Patient does not drink 11/09/2023 4:01 PM CERTIFIED MORTICIAN [facility] * Q3: How often do you have six or more drinks on one occasion? Answer Date of Assessment Author Never 11/09/2023 4:01 PM CERTIFIED MORTICIAN [facility] documented as of this encounter Miscellaneous Notes * Telephone Encounter - Oswaldo Serrano MD - 11/12/2023 8:45 PM CERTIFIED MORTICIAN Thanks for the update! IFIED MORTICIAN * Telephone Encounter - Oswaldo Serrano MD - 11/09/2023 4:47 PM CERTIFIED MORTICIAN Please call her to monitor her BP on Tuesday. Her BP in the office was high today. She was upset. Thanks! IFIED MORTICIAN documented in this encounter Plan of Treatment Upcoming Encounters Date Type Department Care Team (Late st Contact Info) Description 10/08/2024 2:15 PM CERTIFIED MORTICIAN Office Visit [facility] #2 [place] [address] Orlin Urbina, DIGITAL ACCOUNT SUPERVISOR, MARINE FISHERIES TECHNICIAN #2 [place] [address] 10/18/2024 2:15 PM CERTIFIED MORTICIAN [facility] 1 [place] [address] Oswaldo Serrano MD #[address] [address] Discharge Disposition: Discharged to home or Selfcare 11/29/2024 2:30 PM CERTIFIED MORTICIAN [facility] Visit [facility] #2 [place] [address] Oswaldo Serrano MD #[address] [address] 11/30/2024 3:00 PM CERTIFIED MORTICIAN Office Visit [facility] - Endocrinology [facility] #2 [place] [address] Ok Jorge MD #[address] [address] documented as of this encounter Visit Diagnoses Not on filedocumented in this encounter Additional Health Concerns Assessment Noted Time PHQ-9 Depression Total Score: 0 08/09/20 23 2:56 PM CDT documented as of this encounter Care Teams Food Safety Manager Relationship Specialty Start Date End Date Oswaldo Serrano MD #[address] [address] PCP - General Family Medicine 05/19/17 Angel Crowe DPM #[address] [address] Consulting Physician Podiatry 06/16/17 Mora Fritz [place] Behavioral Health Navigator 06/15/18 Ok Jorge MD #[address] [phone] Consulting Physician Endocrinology 05/12/22 Orlin Urbina APRN, YUDI #2 [place] [address] Nurse Practitioner Advanced Practice Nurse 11/09/22 documented as of this encounter
--- OUTSIDE RECORDS SUMMARY | 2024-10-07 00:21 | XMS_ITS | Encounter Summary ---
Author Organization [facility] Care Team Providers Care Hackler Doll Wigs Name Role Phone Oswaldo Serrano MD Primary Care Provider [phone] Angel Crowe DPCiara Unavailable [phone] Mora Fritz Unavailable Unavailable Ok Jorge MD Unavailable Orlin Urbina APRN, OPTIMIZATION SPECIALIST Unavailable + [phone] Encounter Details Date Type Department Care Team (Latest Contact Info) Description 12/01/2023 Travel Social History Tobacco Use Types Packs/Day Years Used Date Smoking Tobacco: Never Smokeless Tobacco: Never Alcohol Use Standard Drinks/Week Comments No 0 (1 standard drink = 0.6 oz pur e alcohol) [facility] Utilities Answer Date Recorded In the past 12 months has [employer], gas, oil, or water company threatened to [...] Total Score - Questions 1-9 0 07/12 [facility] of Occupat ional Health [...] Contact Info) Description 10/08/2024 2:15 PM MEDICAL DIRECTOR Office Visit [facility] #2 [place] [address] Orlin Urbina APRN, OPTIMIZATION SPECIALIST #2 [place] [address] 10/18/2024 2:15 PM MEDICAL DIRECTOR Appointment [facility] Mammography 1 [place] [address] Oswaldo Serrano MD #[address] [address] Discharge Disposition: Discharged to home or Selfcare 11/29/2024 2:30 PM MEDICAL DIRECTOR Office Visit [facility] - Family Medicine [facility] #2 [place] [address] Oswaldo Serrano MD #[address] [address] 11/30/2024 3:00 PM MEDICAL DIRECTOR Office Visit [facility] - Endocrinology [facility] #2 [place] [address] Ok Jorge MD #[address] [place] [address] documented as of this encounter Visit Diagnoses Not on filedocumented in this encounter Additional Health Concerns Assessment Noted Time PHQ-9 Depression Total Score: 0 08/09/20 23 2:56 PM CDT documented as of this encounter Care Teams Hackler Doll Wigs Relationship Specialty Start Date End Date Oswaldo Serrano MD #[address] [address] PCP - General Family Medicine 05/19/17 Angel Crowe DPM #[address] [address] Consulting Physician Podiatry 06/16/17 Mora Fritz [place] Behavioral Health Navigator 06/15/18 Ok Jorge MD #[address] [address] Consulting Physician Endocrinology 05/12/22 Orlin Urbina APRN, OPTIMIZATION SPECIALIST #2 [place] [address] Nurse Practitioner Advanced Practice Nurse 11/09/22 documented as of this encounter
--- OUTSIDE RECORDS SUMMARY | 2024-10-07 00:21 | XMS_ITS | Encounter Summary ---
Author Organization [facility] Address [address] [place] [address] Phone Care Team Providers Care Supervisor Engine Assembly Name Role Phone Oswaldo Serrano MD Primary Care Provider [phone] Angel Crowe DPCiara Unavailable Mora Fritz Unavailable Unavailable Ok Jorge MD Unavailable Orlin Urbina APRN, ELECTRICIAN TECHNICIAN Unavailable + [phone] Reason for Visit * Reason Comments Medication Refill Encounter Details Date Type Department Care Team (Late st Contact Info) Description 02/02/2024 Refill [facility] - [place] #2 [place] [address] Oswaldo Serrano MD #[address] [address] Medication Refill Social History Tobacco Use Types [...] Total Score - Questions 1-9 0 07/12 [facility] of Occupat ional Health - Occupational Stress [...] place to sleep or slept in a senior living (including now)? No 11/09/2023 Education Answer Date [...] encounter Miscellaneous Notes * Telephone Encounter - Leana Menon RN - 02/02/2024 10:43 AM CDT Medication(s) refilled and signed per [facility] Chronic Medication Refill Standing Order for Pediatricand Adult Patients. Requested Prescriptions Pending Prescriptions Disp Refills docusate sodium (COLACE) 100 MG Capsule [Pharmacy Med Name: DOCUSATE SOD 100MG CAPSULES] 60 Capsule2 Sig: TAKE 1 CAPSULE BY MOUTH TWICE DAILY Laxatives Protocol Passed - 02/02/2024 5:48 AM Passed - Visit with relevant provider [...] st Contact Info) Description 10/08/2024 2:15 PM PAYROLL PROFESSIONAL Office Visit [facility] #2 [place] [address] Orlin Urbina, SAFEMAKER, ELECTRICIAN TECHNICIAN #2 [place] [address] 10/18/2024 2:15 PM PAYROLL PROFESSIONAL Appointment [facility] Mammography 1 [place] [address] Oswaldo Serrano MD #[address] [address] Discharge Disposition: Discharged to home or Selfcare 11/29/2024 2:30 PM PAYROLL PROFESSIONAL [facility] Visit [facility] - [place] #2 [place] [address] Oswaldo Serrano MD #[address] [address] 11/30/2024 3:00 PM PAYROLL PROFESSIONAL Office Visit [facility] - Endocrinology - [place] #2 [place] [address] Ok Jorge MD #[address] [address] documented as of this encounter Visit Diagnoses Not on filedocumented in this encounter Additional Health Concerns Assessment Noted Time PHQ-9 Depression Total Score: 0 08/09/20 23 2:56 PM CDT documented as of this encounter Care Teams Supervisor Engine Assembly Relationship Specialty Start Date End Date Oswaldo Serrano MD #[address] [address] PCP - General Family Medicine 05/19/17 Angel Crowe DPM #[address] [address] Consulting Physician Podiatry 06/16/17 Mora Fritz [place] Behavioral Health Navigator 06/15/18 Ok Jorge MD #[address] [address] Consulting Physician Endocrinology 05/12/22 Orlin Urbina APRN, ELECTRICIAN TECHNICIAN #2 [place] [address] Nurse Practitioner Advanced Practice Nurse 11/09/22 documented as of this encounter
--- OUTSIDE RECORDS SUMMARY | 2024-10-07 00:21 | XMS_ITS | Encounter Summary ---
Author Organization [facility] Address [address] [place] [address] Phone Care Team Providers Care Blind Hooker Name Role Phone Oswaldo Serrano MD Primary Care Provider [phone] Angel Crowe DPM Unavailable [phone] Mora Fritz Unavailable Unavailable Ok Jorge MD Unavailable Orlin Urbina APRN, CREW LEADER Unavailable + [phone] Reason for Visit * Reason Onset Date Comments Medication Refill 12/03/2023 Encounter Details Date Type Department Care Team (Late st Contact Info) Description 12/03/2023 MyChart RX Renewal [facility] - Family [facility] #2 [place] [address] Oswaldo Serrano MD #[address] [address] Medication Renewal Reviewed Social History Tobacco Use Types Packs/Day Years Used Date Smoking Tobacco: Never Smokeless Tobacco: Never Alcohol Use Standard Drinks/Week Comments No 0 (1 standard drink = 0.6 oz pur e alcohol) [facility] Utilities Answer Date Recorded In the past [...] often do you attend chur ch or bahai services? Never 11/09/2023 Do you belong to any clubs o r organizations such as adventist groups, unions, fraternal or athletic groups, or [...] Total Score - Questions 1-9 0 07/12 [facility] of Occupat ional Health - Occupational Stress [...] Telephone Encounter - Mica Morales RN - 12/05/2023 9:43 AM CST PRN medication requires review from provider Per nursing clinical judgement, provider to review and approve the medication(s) order(s) if appropriate. Requested Prescriptions Pending Prescriptions Disp Refills albuterol 108 (90 Base) MCG/ACT Aerosol Solution 18 g 0 Sig: take 1-2 Puffs by inhalation every 4 hours as needed for Cough. Short Acting Inhaled Beta-Agonists Protocol Passed - 12/03/2023 10:50 AM Passed - Visit with relevant provider [...] 90 days and meeting all other requirements CULTURAL WORKER SUPERVISOR documented in this encounter Plan of Treatment Upcoming Encounters Date Type Department Care Team (Late st Contact Info) Description 10/08/2024 2:15 PM AQUACULTURAL WORKER SUPERVISOR Office Visit [facility] #2 [place] [address] Orlin Urbina APRN, CREW LEADER #2 [place] [address] 10/18/2024 2:15 PM AQUACULTURAL WORKER SUPERVISOR Appointment [facility] 1 [place] [address] Oswaldo Serrano MD #[address] [address] Discharge Disposition: Discharged to home or Selfcare 11/29/2024 2:30 PM AQUACULTURAL WORKER SUPERVISOR Office Visit [facility] - [facility] - [place] #2 [place] [address] Oswaldo Serrano MD [address] [address] 11/30/2024 3:00 PM AQUACULTURAL WORKER SUPERVISOR Office Visit [facility] - Endocrinology - [place] #2 [place] [address] Ok Jorge MD #[address] [address] documented as of this encounter Visit Diagnoses Not on filedocumented in this encounter Additional Health Concerns Assessment Noted Time PHQ-9 Depression Total Score: 0 08/09/20 23 2:56 PM CDT documented as of this encounter Care Teams Blind Hooker Relationship Specialty Start Date End Date Oswaldo Serrano MD #[address] [address] PCP - General Family Medicine 05/19/17 Angel Crowe DPM #[address] [address] Consulting Physician Podiatry 06/16/17 Mora Fritz [place] Behavioral Health Navigator 06/15/18 Ok Jorge MD #[address] [address] Consulting Physician Endocrinology 05/12/22 Orlin Urbina APRN, CREW LEADER #2 [place] [address] Nurse Practitioner Advanced Practice Nurse 11/09/22 documented as of this encounter
--- OUTSIDE RECORDS SUMMARY | 2024-10-07 00:21 | XMS_ITS | Encounter Summary ---
Author Organization [facility] Address [address] [place] [address] Phone Care Team Providers Care Doweler Name Role Phone Oswaldo Serrano MD Primary Care Provider [phone] Angel Crowe DPM Unavailable Mora Fritz Unavailable Unavailable Ok Jorge MD Unavailable Orlin Urbina APRN, PIPELINES SUPERVISOR Unavailable + [phone] Reason for Visit * Reason Onset Date Comments Medication Refill 12/13/2023 Encounter Details Date Type Department Care Team (Late st Contact Info) Description 12/13/2023 MyChart RX Renewal [facility] - Endocrinology - [place] #[address] [place] [address] Ok Jorge MD #[address] [address] Medication Renewal Reviewed Social History Tobacco Use Types Packs/Day Years Used Date Smoking Tobacco: Never Smokeless Tobacco: Never Alcohol Use Standard Drinks/Week Comments No 0 (1 standard drink = 0.6 oz pur e alcohol) [facility] Utilities Answer Date Recorded In the [...] any clubs o r organizations such as hindu groups, unions, fraternal or athletic groups, or [...] Total Score - Questions 1-9 0 07/12 [facility] [place] of Occupat ional Health - Occupational Stress [...] st Contact Info) Description 10/08/2024 2:15 PM HOUSE PAINTER HELPER Office Visit [facility] #[address] [place] [address] Orlin Urbina, LOADING DOCK HELPER, PIPELINES SUPERVISOR #2 [place] [address] 10/18/2024 2:15 PM HOUSE PAINTER HELPER Appointment [facility] Mamm[facility] 1 [place] [address] Oswaldo Serrano MD #[address] [address] Discharge Disposition: Discharged to home or Selfcare 11/29/2024 2:30 PM HOUSE PAINTER HELPER Office Visit [facility] #2 [place] [address] Oswaldo Serrano MD #[address] [address] 11/30/2024 3:00 PM HOUSE PAINTER HELPER [facility] #2 [place] [address] Ok Jorge MD #[address] [address] documented as of this encounter Visit Diagnoses Not on filedocumented in this encounter Additional Health Concerns Assessment Noted Time PHQ-9 Depression Total Score: 0 08/09/20 23 2:56 PM CDT documented as of this encounter Care Teams Doweler Relationship Specialty Start Date End Date Oswaldo Serrano MD #[address] [address] PCP - General Family Medicine 05/19/17 Angel Crowe DPM #[address] [address] Consulting Physician Podiatry 06/16/17 Mora Fritz [place] Behavioral Health Navigator 06/15/18 Ok Jorge MD #[address] [address] Consulting Physician Endocrinology 05/12/22 Orlin Urbina, OJHN, PIPELINES SUPERVISOR #2 [place] [address] Nurse Practitioner Advanced Practice Nurse 11/09/22 documented as of this encounter
--- OUTSIDE RECORDS SUMMARY | 2024-10-07 00:21 | XMS_ITS | Encounter Summary ---
Author Organization [facility] Care Team Providers Care Almond Sorter Name Role Phone Oswaldo Serrano MD Primary Care Provider [phone] Angel Crowe DPCiara Unavailable [phone] Mora Fritz Unavailable Unavailable Ok Jorge MD Unavailable Orlin Urbina APRN, PUBLIC EVENTS FACILITIES RENTAL MANAGER Unavailable + [phone] Encounter Details Date Type Department Care Team (Latest Contact Info) Description 01/24/2024 Travel Social History Tobacco Use Types Packs/Day Years Used Date Smoking Tobacco: Never Smokeless Tobacco: Never Alcohol Use Standard Drinks/Week Comments No 0 (1 standard drink = 0.6 oz pur e alcohol) [facility] Utilities Answer Date Recorded In the past 12 months has [employer], gas, oil, or water company threatened to [...] often do you attend chur ch or yarsanism services? Never 11/09/2023 Do you belong to any clubs o r organizations such as hinduism groups, unions, fraternal or athletic groups, or [...] Total Score - Questions 1-9 0 07/12 [facility] of Occupat ional Health - [...] Contact Info) Description 10/08/2024 2:15 PM MANAGER CLINICAL SERVICES Office Visit [facility] #2 [place] [address] Orlin Urbina APRN, PUBLIC EVENTS FACILITIES RENTAL MANAGER #2 [place] [address] 10/18/2024 2:15 PM MANAGER CLINICAL SERVICES Appointment [facility] Mammography 1 [place] [address] Oswaldo Serrano MD #[address] [address] Discharge Disposition: Discharged to home or Selfcare 11/29/2024 2:30 PM MANAGER CLINICAL SERVICES Office Visit [facility] - Family Medicine [facility] #2 [place] [address] Oswaldo Serrano MD #[address] [address] 11/30/2024 3:00 PM MANAGER CLINICAL SERVICES Office Visit [facility] - [facility]ocrinology [facility] #2 [place] [address] Ok Jorge MD #[address] [place] [address] documented as of this encounter Visit Diagnoses Not on filedocumented in this encounter Additional Health Concerns Assessment Noted Time PHQ-9 Depression Total Score: 0 08/09/20 23 2:56 PM CDT documented as of this encounter Care Teams Almond Sorter Relationship Specialty Start Date End Date Oswaldo Serrano MD #[address] [address] PCP - General Family Medicine 05/19/17 Angel Crowe DPM #[address] [address] Consulting Physician Podiatry 06/16/17 Mora Fritz [place] Behavioral Health Navigator 06/15/18 Ok Jorge MD #[address] [address] Consulting Physician Endocrinology 05/12/22 Orlin Urbina APRN, PUBLIC EVENTS FACILITIES RENTAL MANAGER #2 [place] [address] Nurse Practitioner Advanced Practice Nurse 11/09/22 documented as of this encounter
--- OUTSIDE RECORDS SUMMARY | 2024-10-07 00:21 | XMS_ITS | Encounter Summary ---
Author Organization [facility] Address [address] [place] [address] Phone Care Team Providers Care Senior Test Engineer Name Role Phone Oswaldo Serrano MD Primary Care Provider [phone] Angel Crowe DPCiara Unavailable Mora Fritz Unavailable Unavailable Ok Jorge MD Unavailable Orlin Urbina APRN, INFANT ROOM TEACHER Unavailable + [phone] Reason for Visit * Reason Comments Medication Refill Encounter Details Date Type Department Care Team (Late st Contact Info) Description 12/11/2023 Refill [facility] - [place] #2 [place] [address] Oswaldo Serrano MD #[address] [address] Medication Refill Social History Tobacco Use Types Packs/Day Years Used Date Smoking Tobacco: Never Smokeless Tobacco: Never Alcohol Use Standard Drinks/Week Comments No 0 (1 standard drink = 0.6 oz pur e alcohol) [facility] Utilities Answer Date Recorded In the [...] often do you attend chur ch or yazidi services? Never 11/09/2023 Do you belong to any clubs o r organizations such as anabaptism groups, unions, fraternal or athletic groups, or [...] Total Score - Questions 1-9 0 07/12 [facility] [place] of Occupat ional Health - Occupational Stress [...] Telephone Encounter - Mica Morales RN - 12/12/2023 1:16 PM CST Medication failed the protocol, provider to review and approve the medication order if appropriate. Requested Prescriptions Pending Prescriptions Disp Refills escitalopram (LEXAPRO) 10 MG Tablet [Pharmacy Med Name: ESCITALOPRAM 10MG TABLETS] 90 Tablet 1 Sig: TAKE 1 TABLET BY MOUTH DAILY SSRI (6 Month Refill Only) Protocol Failed - 12/11/2023 4:55 PM Failed - Has an encounter in the [...] with SSRI for at least 6 months TE SENSING RESEARCH SCIENTIST documented in this encounter Plan of Treatment Upcoming Encounters Date Type Department Care Team (Late st Contact Info) Description 10/08/2024 2:15 PM REMOTE SENSING RESEARCH SCIENTIST Office Visit [facility] #2 [place] [address] Orlin Urbina APRN, INFANT ROOM TEACHER #2 [place] [address] 10/18/2024 2:15 PM REMOTE SENSING RESEARCH SCIENTIST [facility] 1 [place] [address] Oswaldo Serrano MD #[address] [address] Discharge Disposition: Discharged to home or Selfcare 11/29/2024 2:30 PM REMOTE SENSING RESEARCH SCIENTIST [facility] Visit [facility] - [place] #2 [place] [address] Oswaldo Serrano MD #[address] [address] 11/30/2024 3:00 PM REMOTE SENSING RESEARCH SCIENTIST Office Visit [facility] - [place] #2 [place] [address] Ok Jorge MD #[address] [address] documented as of this encounter Visit Diagnoses Not on filedocumented in this encounter Additional Health Concerns Assessment Noted Time PHQ-9 Depression Total Score: 0 08/09/20 23 2:56 PM CDT documented as of this encounter Care Teams Senior Test Engineer Relationship Specialty Start Date End Date Oswaldo Serrano MD #[address] [address] PCP - General Family Medicine 05/19/17 Angel Crowe DPM #[address] [address] Consulting Physician Podiatry 06/16/17 Mora Fritz [place] Behavioral Health Navigator 06/15/18 Ok Jorge MD #[address] [address] Consulting Physician Endocrinology 05/12/22 Orlin Urbina APRN, INFANT ROOM TEACHER #2 [place] [address] Nurse Practitioner Advanced Practice Nurse 11/09/22 documented as of this encounter
--- OUTSIDE RECORDS SUMMARY | 2024-10-07 00:21 | XMS_ITS | Encounter Summary ---
Author Organization [facility] Address [address] [place] [address] Phone Care Team Providers Care Plastic Molder Name Role Phone Oswaldo Serrano MD Primary Care Provider [phone] Angel Crowe DPCiara Unavailable [phone] Mora Fritz Unavailable Unavailable Ok Jorge MD Unavailable Orlin Urbina APRN, PROTECTIVE CLOTHING ISSUER Unavailable + [phone] Reason for Visit * Reason Comments Follow-up 6MONTHS Overactive Bladder * Consult, Test & Initiate Treatment (Less Than 4 Weeks) - Closed Specialty Diagnoses / Procedures Referred By Praful t Referred To Contact Urology Diagnoses Hematuria, unspecified type Oswaldo Serrano MD #[address] [address] Phone: tel: fax: [facility] #2 [place] [address] Phone: tel: fax: Referral ID Status Reason Start Date Expiration Date Visits Re quested Visits Authorized [id number] Closed 07/18/2023 1 1 Encounter Details Date Type Department Care Team (Late st Contact Info) Description 01/24/2024 1:15 PM CDT Office Visit [facility] #2 [place] [id number] Oswaldo Serrano MD #[address] [address] Orlin Urbina APRN, PROTECTIVE CLOTHING ISSUER #2 [place] [address] OAB (overactive bladder) (Primary Dx); Hematuria, unspecified type; Urinary incontinence, urge; E. coli UTI Discharge Disposition: Discharged to home or Selfcare Social History Tobacco Use Types Packs/Day Years Used Date Smoking Tobacco: Never Smokeless Tobacco: Never Tobacco Cessation:Counseling Given: No Alcohol Use Standard Drinks/Week Comments No 0 (1 standard drink = 0.6 oz pur e alcohol) [facility] Utilities Answer Date Recorded In the past 12 months has [employer], gas, oil, or water [employer] threatened to shut off services in your [...] often do you attend chur ch or mandaen services? Never 11/09/2023 Do you belong to any clubs o r organizations such as buddhism groups, unions, fraternal or athletic groups, or [...] Total Score - Questions 1-9 0 07/12 [facility] - Occupational [...] Sign Reading Time Taken Comments Blood Pressure 133/78 01/24/2024 1:38 PM CDT Pulse 96 01/24/2024 1:38 PM CDT Temperature 36.2 ??C (97.1 ??F) 01/24/2024 1:38 PM CD T Respiratory Rate 19 01/24/2024 1:38 PM CDT Oxygen Saturation 93% 01/24/2024 1:38 PM CDT Inhaled Oxygen Concentration - - Weight 123.8 kg (273 lb) 01/24/2024 1:38 PM CDT Height 165.1 cm (5' 5 ) 01/24/2024 1:38 PM CDT Body Mass Index 45.43 01/24/2024 1:38 PM CDT documented in this encounter Progress Notes * Orlin Urbina, APPAREL FASHION DESIGNER, PROTECTIVE CLOTHING ISSUER - 01/24/2024 1:15 PM CDT UROLOGY [facility] [address] [facility], [address] [place] [address] PHONE: FAX: Assessment & Plan OAB- continue Gemtesa. F/u in 6 months. Abnormal ua- checking micro ua and cx. Will treat for infection if pos. If micro ua is pos and not infection will need cystoscopy to complete hematuria work-up. Negative CT U 07/2023. Subjective: 11/09/2022 HPI: HPI: Loretta V Isamar presents to the office for follow-up on overactive bladder. Patient has been taking Myrbetriq 50 mg daily. She reports that she is going through 4 depends per day and about 10 pads per day. This is good improvement in compared to oxybutynin that she was going through 7-10 depends per day. Symptoms have improved but she is wanting to see if she can get better control of incontinence. UA-negative for blood or infection 01/04/2023 HPI: HPI: Loretta Penn presents to the office for follow-up on overactive bladder. She is been taking Myrbetriq 50 mg with minimal improvement in urinary symptoms. She reports that she has startedhaving some intermittent left-sided abdominal pain. UA today is not overtly suspicious for infection, but this shows some microscopic blood on urine dip. 03/08/2023 HPI: HPI: Loretta Penn presents to the office for 6 week follow-up on trospium. Patient reports she is noticed minimal improvement since starting trospium. Family with her today reports that they have noticed a slight decrease in the amount of pads in the trash can. However, she is still going through significant amount of pads daily. She was having some left sided abdominal/flank pain at lastvisit and culture and CT scan was ordered. Culture was positive and treated with antibiotics. She reports after finishing antibiotic she is still having some pain. UA today with microscopic blood on urine dip. Negative for infection. 06/21/2023 HPI: HPI: Loretta Penn presents to the office for follow-up on overactive bladder. Reports that Gemtesa was working better than trospium. She is going through less pads and feels like she is able to control urination better. Per daughter who is with her at the appointment today states that she feels like the trospium was causing some confusion as well. Patient denies any dysuria or gross hematuria. UA today is negative for infection. 01/24/2024 HPI: HPI: Loretta Penn presents to the office for follow-up. She continues to do well with Gemtesa. Urinary frequency, urgency, and incontinence are stable. Denies any dysuria or gross hematuria. Daughter reports some malodorous urine. Ua- neg le, neg nit, 50 blood PVR- 0cc The following portions of the patient's chart were reviewed in this encounter and updated as appropriate: ROS: Review of Systems Constitutional: Negative for chills and fever. Respiratory: Negative for cough and shortness of breath. Cardiovascular: Negative for chest pain and palpitations. Gastrointestinal: Negative for abdominal pain, diarrhea, nausea and vomiting. Genitourinary: Positive for frequency and urgency. Negative for dysuria, flank pain and hematuria. Musculoskeletal: Negative for myalgias. Neurological: Negative for dizziness and weakness. Objective: Vital signs: LMP (LMP Unknown) There were no vitals filed for this visit. Physical Exam Constitutional: General: She is not in acute distress. Appearance: Normal appearance. She is not ill-appearing. HENT: Head: Normocephalic. Cardiovascular: Rate and Rhythm: Normal rate and regular rhythm. Pulmonary: Effort: Pulmonary effort is normal. No respiratory distress. Chest: Chest wall: No tenderness. Abdominal: General: Abdomen is flat. There is no distension. Palpations: Abdomen is soft. Tenderness: There is no abdominal tenderness. There is no right CVA tenderness, left CVA tendernessor guarding. Musculoskeletal: General: Normal range of motion. Cervical back: Neck supple. Skin: General: Skin is warm and dry. Capillary Refill: Capillary refill takes less than 2 seconds. Neurological: Mental Status: She is alert and oriented to person, place, and time. Gait: Gait abnormal. Lab Results Component Value Date WBC 7.00 11/09/2023 HEMOGLOBIN 16.4 (H) 11/09/2023 HEMATOCRIT 49.7 (H) 11/09/2023 PLATELETCNT 266 11/09/2023 MCV 97.8 (H) 11/09/2023 Lab Results Component Value Date SODIUM 140 11/09/2023 POTASSIUM 4.0 11/09/2023 CHLORIDE 103 11/09/2023 CO2VEN 27 11/09/2023 ANIONGAP 14.0 11/09/2023 GLUCOSE 181 (H) 11/09/2023 BUN 18 11/09/2023 CREATININE 1.03 (H) 11/09/2023 BCRATIO8 17 11/09/2023 TOTALPROTEIN 8.1 11/09/2023 ALBUMIN 4.1 11/09/2023 AGRATIO 0.9 07/16/2017 CALCIUM 9.2 11/09/2023 TBIL 0.6 11/09/2023 SGOTAST 22 11/09/2023 SGPTALT 22 11/09/2023 ALKALINEPHO 142 11/09/2023 GFRNA 54 (L) 11/09/2023 GFRA >60 11/09/2023 No results found for: PSASCREEN , PSA , PSAFREE , PSAPCNTFREE , PSATOTAL Results for orders placed or performed in visit on 08/09/23 URINALYSIS REFLEX IF INDICATED BY ABNORMAL RESULTS Result Value Ref Range Status SPECIFIC GRAVITY 1.010 1.003 - 1.030 Final URINE PH 5.0 5.0 - 9.0 Final WBC ESTERASE Negative Negative Final NITRITE Negative Negative Final PROTEIN, RANDOM URINE 15 mg/dL (A) Negative Final URINE GLUCOSE, QUAL 1000 mg/dL (A) Negative Final URINE KETONES Negative Negative Final UROBILINOGEN Normal Normal mg/dL Final URINE BLOOD 25 /uL (A) Negative alec/ul Final URINALYSIS COLOR Yellow Final URINALYSIS CLARITY Clear Final WBC (Urine) 6-10 (A) Negative, 0-5 /hpf Final URINE RBC'S 0-2 Negative, 0-2 /hpf Final EPITHELIAL CELLS Moderate amount /lpf Final BACTERIA, URINE Negative Negative /hpf Final CULTURE, URINE Specimen: Urine Clean Catch; Culture Result Value Ref Range Status CULTURE RESULTS Final MIXED GROWTH OF 3 OR MORE ORGANISMS, PROBABLE COLLECTION CONTAMINATION, SUGGEST REPEAT URINE CULTURE. Results for orders placed or performed in visit on 07/16/17 URINALYSIS MICROSCOPIC IF INDICATED Result Value Ref Range Status SPECIFIC GRAVITY 1.015 1.003 - 1.030 Final URINE PH 5.0 5.0 - 9.0 Final WBC ESTERASE 500 /uL (A) Negative Final NITRITE Negative Negative Final PROTEIN, RANDOM URINE Negative Negative mg/dL Final URINE GLUCOSE, QUAL 50 mg/dL (A) Negative Final URINE KETONES Negative Negative mg/dL Final UROBILINOGEN Normal Normal mg/dL Final URINE BILIRUBIN Negative Negative Final URINE BLOOD 25 /uL (A) Negative alec/ul Final URINALYSIS COLOR Pale yellow Final URINALYSIS CLARITY Slightly Cloudy Final WBC (Urine) 0-5 Negative, 0-5 /hpf Final URINE RBC'S Negative Negative, 0-5 /hpf Final EPITHELIAL CELLS Moderate amount /lpf Final BACTERIA, URINE Few (A) Negative /hpf Final URINE MUCOUS Few Final URINE MICRO REQUIRED No Final No results found for: TESTOSTTTL No results found for this or any previous visit from the past 365 days. There are no diagnoses linked to this encounter. By: Orlin Urbina APRN, CNP, 01/24/2024, 12:31 PM CDT Primary Care Physician: Oswaldo Serrano MD documented in this encounter Procedure Notes * Dariel Dowling, ONEIL - 01/24/2024 1:15 PM CDTAssociated Order(s): LISA,POST- VOID RES,US,NON-IMAGING POCT Bladder Scan collected per standing order of Orlin Urbina NP on 01/24/2024 PVR= 0 ML documented in this encounter Miscellaneous Notes * Addendum Note - Orlin Urbina APRN, CNP - 01/24/2024 1:15 PM CDTAddended by: ORLIN URBINA on: 01/30/2024 03:50 PM Modules accepted: Orders documented in this encounter Plan of Treatment Upcoming Encounters Date Type Department Care Team (Late st Contact Info) Description 10/08/2024 2:15 PM FAMILY LAWYER Office Visit [facility] #2 [place] [address] Orlin Urbina APRN, CNP #2 [place] [address] 10/18/2024 2:15 PM FAMILY LAWYER Appointment [facility] 1 [place] [id number] Oswaldo Serrano MD #[address] [address] Discharge Disposition: Discharged to home or Selfcare 11/29/2024 2:30 PM FAMILY LAWYER Office Visit [facility] - [facility] - [place] #2 [place] [address] Oswaldo Serrano MD #2 [facility] [address] [place] [address] 11/30/2024 3:00 PM FAMILY LAWYER Office Visit [facility] - Endocrinology - [place] #2 [facility] [place] [address] Ok Jorge MD #2 [facility] [address] [place] [address] documented as of this encounter Procedures Procedure Name Priority Date/Time Associated Diagnosis Comments URINALYSIS REFLEX IF INDICATED BY ABNORMAL RESULTS Routine 01/24/2024 1:51 PM CDT OAB (overactive bladder) Hematuria, unspecified type CULTURE, URINE Routine 01/24/2024 1:51 PM CDT OAB (overactive bladder) Hematuria, unspecified type POCT UA AUTOMATED W/O MICRO Routine 01/24/2024 1:33 PM CDT OAB (overactive bladder) LISA,POST-VOID RES,US,NON-IMAGING Routine 01/24/2024 1:15 PM CDT OAB (overactive bladder) documented in this encounter Results * (ABNORMAL) URINALYSIS REFLEX IF INDICATED BY ABNORMAL RESULTS (01/24/2024 1:51 PM CDT) SPECIFIC GRAVITY 1.015 1.003 - 1.030 01/24/2024 4:33 PM CDT [facility] URINE PH 5.0 5.0 - 9.0 01/24/2024 4:33 PM CDT [facility] WBC ESTERASE Negative Negative 01/24/2024 4:33 PM CDT [facility] NITRITE Negative Negative 01/24/2024 4:33 PM CDT [facility] PROTEIN, RANDOM URINE Negative Negative 01/24/2024 4:33 PM CDT [facility] URINE GLUCOSE, QUAL 1000 mg/dL(A) Negative 01/24/2024 4:33 PM CDT [facility] URINE KETONES Negative Negative 01/24/2024 4:33 PM CDT [facility] UROBILINOGEN Normal Normal mg/dL 01/24/2024 4:33 PM CDT [facility] URINE BLOOD 10 /uL(A) Negative alec/ul 01/24/2024 4:33 PM CDT [facility] URINALYSIS COLOR Yellow 01/24/20 24 4:33 PM CDT [facility] URINALYSIS CLARITY Clear 01/24/2024 4:33 PM CDT [facility] WBC (Urine) 0-5 Negative, 0-5 /hpf 01/24/2024 4:33 PM CDT [facility] URINE RBC'S 0-2 Negative, 0-2 /hpf 01/24/2024 4:33 PM CDT [facility] EPITHELIAL CELLS Small amount /lpf 2023 4:33 PM CDT [facility] BACTERIA, URINE Negative Negative /hpf 01/24/2024 4:33 PM CDT [facility] Urine URINE SPECIMEN COLLECTION, CLEAN CATCH / Unknown Non-Phlebotomy Collection / Unknown 01/24/2024 1:51 PM CDT 01/24/2024 1:51 PM CDT us Orlin Urbina APRN, CNP URINE ORDERABLES Final Result [facility] #1 [place] [address] * CULTURE, URINE (01/24/2024 1:51 PM CDT) CULTURE RESULTS ESCHERICHIA COLI 01/26/2024 4:01 PM CDT [facility] Comment:PRESUMPTIVE IDENTIFI CATION CULTURE RESULTS ALSO MIXED GROWTH OF DISTAL URETHRA CONTAMINANTS. 01/26/2024 4:01 PM CDT [facility] Culture URINE SPECIMEN COLLECTION, CLEAN CATCH / Unknown Non-Phlebotomy Collection / Unknown 01/24/2024 1:51 PM CDT 01/24/2024 1:51 PM CDT Narrative Organism Antibiotic Method Susceptibility Escherichia coli Ampicillin [facility] IIB 4 mcg/ml: Susceptible Escherichia coli Ampicillin/sulbactam [facility] II[facility] <=2 mcg/ml: Susceptible Escherichia coli Cefazolin [facility] II[facility] <=4 mcg/ml: Susceptible Escherichia coli Cefepime [facility] II[facility] <=1 mcg/ml: Susceptible Escherichia coli Ceftriaxone [facility] <=1 mcg/ml: Susceptible Escherichia coli Gentamicin [facility] <=1 mcg/ml: Susceptible Escherichia coli Levofloxacin [facility] <=0.12 mcg/ml: Susceptible Escherichia coli Meropenem [facility] II[facility] <=0.25 mcg/ml: Susceptible Escherichia coli Nitrofurantoin [facility] II[facility] <=16 mcg/ml: Susceptible Escherichia coli Piperacillin/Tazobactam [facility] II B <=4 mcg/ml: Susceptible Escherichia coli Tobramycin [facility] IIB <=1 mcg/ml: Susceptible Escherichia coli Trimeth/Sulfamethoxazole [facility] I IB <=20 mcg/ml: Susceptible us Orlin Urbina APPAREL FASHION DESIGNER, PROTECTIVE CLOTHING ISSUER MICROBIOLOGY - GENERAL ORDERABLES Final Result Performing Organization Address City/State/[facility] Co de Phone Number [facility] [address] [place] [address], * (ABNORMAL) POCT UA AUTOMATED W/O MICRO (01/24/2024 1:33 PM CDT) POC UA SPECIFIC GRAVITY 1.010 URINE PH 6.5 5.0 - 9.0 POC URINE LEUKOCYTES Negative Negative Lucas/uL POC URINE NITRITE Negative Negative POC URINE PROTEIN Negative Negative mg/dL POC URINE GLUCOSE >1000 mg/dL(A) Negative, Norm mg/dL POC URINE KETONE Negative Negative mg/dL POC URINE UROBILINOGEN Norm Norm, 0.2 E.U./dL (mg/dL), 1 E.U./dL (mg/dL) POC URINE BILIRUBIN Negative Negative mg/dL POC URINE BLOOD INSTRUMENT 50 Alec/uL(A) Negative Alec/uL POC URINE COLOR Yellow POC URINE CLARITY Clear 01/24/2024 1:33 PM CDT us Orlin Urbina APRN, CNP POINT OF CARE TESTING (MANUAL) Final Result * LISA,POST-VOID RES,US,NON-IMAGING (01/24/2024 1:15 PM CDT) Narrative Dariel Dowling RMA - 01/24/2024 1:15 PM CDT Dariel Dowling RMA ? 01/24/2024 ??1:54 PM POCT Bladder Scan collected per standing order of Orlin Urbina INVESTIGATION MANAGER on 01/24/2024 PVR= 0 ML us Orlin Urbina APRN, CNP [place] - SURGERY Final Result documented in this encounter Visit Diagnoses Diagnosis OAB (overactive bladder)- Primary Hypertonicity of bladder Hematuria, unspecified type Urinary incontinence, urge Urge incontinence E. coli UTI Urinary tract infection, site not specified documented in this encounter Additional Health Concerns Assessment Noted Time PHQ-9 Depression Total Score: 0 08/09/20 23 2:56 PM CDT documented as of this encounter Care Teams Plastic Molder Relationship Specialty Start Date End Date Oswaldo Serrano MD #[address] [address] PCP - General Family Medicine 05/19/17 Angel Crowe DPM #2 [facility] [address] [place] [address] Consulting Physician Podiatry 06/16/17 Mora Fritz Behavioral Health Navigator 06/15/18 Ok Jorge MD #[address] [facility] [address] [address] Consulting Physician Endocrinology 05/12/22 Orlin Urbina APRN, PROTECTIVE CLOTHING ISSUER #[address] [place] [address] Nurse Practitioner Advanced Practice Nurse 11/09/22 documented as of this encounter
--- OUTSIDE RECORDS SUMMARY | 2024-10-07 00:22 | XMS_ITS | Encounter Summary ---
Author Organization [facility] Address [address] [place] [address] Phone Care Team Providers Care Research Soil Scientist Name Role Phone Oswaldo Serrano MD Primary Care Provider [phone] Angel Crowe DPM Unavailable Mora Fritz Unavailable Unavailable Ok Jorge MD Unavailable Orlin Urbina APRN, TINNER AUTOMATIC Unavailable Encounter Details Date Type Department Care Team (Late st Contact Info) Description 07/19/2023 Telephone [facility] #[address] [place] [address] Oswaldo Serrano MD [address] [id number] Social History Tobacco Use Types Packs/Day Years Used Date Smoking Tobacco: Never Smokeless Tobacco: Never Alcohol Use Standard Drinks/Week Comments No 0 (1 standard drink = 0.6 oz pur e alcohol) PHQ-2 Answer Date Recorded Total Score - Questions 1-9 0 /0 02/2023 Education Answer Date Recorded What is the highest level of school you have completed or the highest degree you have received? 9th grade 05/03/2023 Sexually Active Control Partners Comments Not Currently Male Comments No Sex and Gender Information Value Date Recorded Sex Assigned at Not on file Legal Sex Female 3:04 PM CDT Gender Identity Not on file Sexual Orientation Not on file COVID-19 Exposure Response Date Recorded In the last 10 days, have yo u been in contact with someone who was confirmed or suspected to have Coronavirus/COVID-19? No / Unsure 06/21/2023 2:55 PM CDT documented as of this encounter Miscellaneous Notes * Telephone Encounter - Zainab Roblero RN - 07/19/2023 8:37 AM CDT Spoke with Dilia neff to inform * Telephone Encounter - Zainab Roblero RN - 07/19/2023 8:35 AM CDT ----- Message from Oswaldo Serrano MD sent at 07/18/2023 7:32 PM CDT ----- Let her know she has blood in the urine and I will get a CT urogram and refer her to Urology for evaluation. Other labs fine. Orders entered. Thanks! documented in this encounter Plan of Treatment Upcoming Encounters Date Type Department Care Team (Late st Contact Info) Description 10/08/2024 2:15 PM SHIPPING LEAD PERSON Office [facility] #2 [place] [address] Orlin Urbina, PRODUCE TEAM LEAD, TINNER AUTOMAT[employer] #2 [place] [address] 10/18/2024 2:15 PM SHIPPING LEAD PERSON [facility]ment [facility] 1 [place] [address] Oswaldo Serrano MD #[address] [address] Discharge Disposition: Discharged to home or Selfcare 11/29/2024 2:30 PM SHIPPING LEAD PERSON Office Visit [facility] - [facility] #2 [place] [address] Oswaldo Serrano MD #[address] [address] 11/30/2024 3:00 PM SHIPPING LEAD PERSON [facility] Visit [facility] #2 [place] [address] Ok Jorge MD #[address] [address] documented as of this encounter Visit Diagnoses Not on filedocumented in this encounter Additional Health Concerns Assessment Noted Time PHQ-9 Depression Total Score: 0 10/14/19 23 11:00 AM SHIPPING LEAD PERSON documented as of this encounter Care Teams Research Soil Scientist Relationship Specialty Start Date End Date Oswaldo Serrano MD #[address] [address] PCP - General Family Medicine 05/19/17 Angel Crowe DPM #[address] [address] Consulting Physician Podiatry 06/16/17 Mora Fritz [place] Behavioral Health Navigator 06/15/18 Ok Jorge MD [address] [address] Consulting Physician Endocrinology 05/12/22 Orlin Urbina APRN, YUDI #[address] [place] [address] Nurse Practitioner Advanced Practice Nurse 11/09/22 documented as of this encounter
--- OUTSIDE RECORDS SUMMARY | 2024-10-07 00:22 | XMS_ITS | Encounter Summary ---
Author Organization [facility] Address [address] [place] [address] Phone Care Team Providers Care Boat Finisher Name Role Phone Oswaldo Serrano MD Primary Care Provider [phone] Angel Crowe DPM Unavailable Mora Fritz Unavailable Unavailable Ok Jorge MD Unavailable Orlin Urbina APRN, CONTINUITY COORDINATOR Unavailable Reason for Visit * Reason Comments Medication Refill Encounter Details Date Type Department Care Team (Late st Contact Info) Description 03/08/2023 Refill [facility] #[address] [place] [address] Orlin Urbina APRN, CONTINUITY COORDINATOR #2 [place] [address] Medication Refill Social History Tobacco Use Types Packs/Day Years Used Date Smoking Tobacco: Never Smokeless Tobacco: Never Alcohol Use Standard Drinks/Week Comments No 0 (1 standard drink = 0.6 oz pur e alcohol) PHQ-2 Answer Date Recorded Total Score - Questions 1-9 0 02/2023 Education Answer Date Recorded What is the highest level of school you have completed or the highest degree you have received? 10th grade 11/07/2020 Sexually Active Control Partners Comments Not Currently [...] suspected to have Coronavirus/COVID-19? No / Unsure 03/08/2023 3:14 PM CDT documented as of this encounter Miscellaneous Notes * Telephone Encounter - Jennifer Stoner RN - 03/09/2023 1:27 PM CDT Sent 03/08/23 duplicate reqiest documented in this encounter Plan of Treatment Upcoming Encounters Date Type Department Care Team (Late st Contact Info) Description 10/08/2024 2:15 PM HATCHERY ATTENDANT Office Visit [facility] #2 [place] [address] Orlin Urbina, LAST REPAIRER HELPER, CONTINUITY COORDINATOR #2 [place] [address] 10/18/2024 2:15 PM HATCHERY ATTENDANT Appointment [facility] 1 [place] [address] Oswaldo Serrano MD #[address] [address] Discharge Disposition: Discharged to home or Selfcare 11/29/2024 2:30 PM HATCHERY ATTENDANT Office Visit [facility] - Family Medicine [facility] #2 [place] [address] Oswaldo Serrano MD #[address] [address] 11/30/2024 3:00 PM HATCHERY ATTENDANT Office Visit [facility] Endocrinology [facility] #2 [place] [address] Ok Jorge MD #[address] [address] documented as of this encounter Visit Diagnoses Diagnosis OAB (overactive bladder) Hypertonicity of bladder documented in this encounter Additional Health Concerns Assessment Noted Time PHQ-9 Depression Total Score: 0 10/14/19 23 11:00 AM HATCHERY ATTENDANT documented as of this encounter Care Teams Boat Finisher Relationship Specialty Start Date End Date Oswaldo Serrano MD #[address] [address] PCP - General Family Medicine 05/19/17 Angel Crowe DPM #[address] [address] Consulting Physician Podiatry 06/16/17 Mora Fritz [place] Behavioral Health Navigator 06/15/18 Ok Jorge MD #[address] [address] Consulting Physician Endocrinology 05/12/22 Orlin Urbina APRN, CONTINUITY COORDINATOR #2 [place] [address] Nurse Practitioner Advanced Practice Nurse 11/09/22 documented as of this encounter
--- OUTSIDE RECORDS SUMMARY | 2024-10-07 00:22 | XMS_ITS | Encounter Summary ---
Author Organization [facility] Address [address] [place] [address] Phone Care Team Providers Care Computer Forwarding System Markup Clerk Name Role Phone Oswaldo Serrano MD Primary Care Provider [phone] Angel Crowe DPM Unavailable [phone] Mora Fritz Unavailable Unavailable Ok Jorge MD Unavailable Orlin Urbina APRN, PARKS AND RECREATION WORKER Unavailable + [phone] Reason for Visit * Reason Onset Date Comments Medication Refill 02/08/2023 Encounter Details Date Type Department Care Team (Late st Contact Info) Description 02/08/2023 MyChart RX Renewal [facility] - [facility]ology - [place] [address] [place] [address] Ok Jorge MD #[address] [address] Medication Renewal Request Social History Tobacco Use Types Packs/Day Years [...] suspected to have Coronavirus/COVID-19? No / Unsure 02/01/2023 3:23 PM CDT documented as of this encounter Plan of Treatment Upcoming Encounters Date Type Department Care Team (Late st Contact Info) Description 10/08/2024 2:15 PM SADDLE MAKER Office Visit [facility] UROLOGY #2 [place] [address] Orlin Urbina, MELT HOUSE SUPERVISOR, PARKS AND RECREATION WORKER #2 [place] [address] 10/18/2024 2:15 PM SADDLE MAKER Appointment [facility] Mammography 1 [place] [address] Oswaldo Serrano MD #[address] [address] Discharge Disposition: Discharged to home or Selfcare 11/29/2024 2:30 PM SADDLE MAKER Office Visit [facility] - Family [facility] #2 [place] [phone] Oswaldo Serrano MD #[address] [address] 11/30/2024 3:00 PM SADDLE MAKER Office Visit [facility] - Endocrinology - [place] [address] [place] [address] Ok Jorge MD #[address] [address] documented as of this encounter Visit Diagnoses Not on filedocumented in this encounter Additional Health Concerns Assessment Noted Time PHQ-9 Depression Total Score: 0 10/14/19 23 11:00 AM SADDLE MAKER documented as of this encounter Care Teams Computer Forwarding System Markup Clerk Relationship Specialty Start Date End Date Oswaldo Serrano MD #[address] [address] PCP - General Family Medicine 05/19/17 Angel Crowe DPM #[address] [address] Consulting Physician Podiatry 06/16/17 Mora Fritz ND Behavioral Health Navigator 06/15/18 Ok Jorge MD #[address] [address] Consulting Physician Endocrinology 05/12/22 Orlin Urbina APRN, PARKS AND RECREATION WORKER #2 [place] [address] Nurse Practitioner Advanced Practice Nurse 11/09/22 documented as of this encounter
--- OUTSIDE RECORDS SUMMARY | 2024-10-07 00:22 | XMS_ITS | Encounter Summary ---
Author Organization [facility] Address [address] [place] [address] Phone Care Team Providers Care Workers' Compensation Claims Examiner Name Role Phone Oswaldo Serrano MD Primary Care Provider [phone] Angel Crowe DPM Unavailable Mora Fritz Unavailable Unavailable Ok Jorge MD Unavailable Orlin Urbina APRN, STATE WILDLIFE OFFICER Unavailable + [phone] Reason for Visit * Reason Comments Follow-up Diabetes Mellitus Encounter Details Date Type Department Care Team (Late st Contact Info) Description 09/13/2023 3:15 PM SKI INSTRUCTOR Office Visit [facility] - Endocr[facility]ology - [place] [address] [place] [address] Ok Jorge MD [address] [address] Type 2 diabetes mellitus treated with insulin (HCC) (Primary Dx); Insulin dose changed (HCC); Hypoglycemia; Class 3 severe obesity due to excess calories with serious comorbidity and body mass index (BMI) of 45.0 to 49.9 in adult (HCC) Discharge Disposition: Discharged to home or Selfcare Social History Tobacco Use Types Packs/Day Years Used Date Smoking Tobacco: Never Smokeless Tobacco: Never Alcohol Use Standard Drinks/Week Comments No 0 (1 standard drink = 0.6 oz pur e alcohol) PHQ-2 Answer Date Recorded Total Score - Questions 1-9 0 07/12 Education Answer Date Recorded What is the [...] Sign Reading Time Taken Comments Blood Pressure 110/74 09/13/2023 3:24 PM SKI INSTRUCTOR Pulse 74 09/13/2023 3:24 PM SKI INSTRUCTOR Temperature 36 ??C (96.8 ??F) 09/13/2023 3:24 PM SKI INSTRUCTOR Respiratory Rate 16 09/13/2023 3:24 PM SKI INSTRUCTOR Oxygen Saturation 95% 09/13/2023 3:24 PM SKI INSTRUCTOR Inhaled Oxygen Concentration - - Weight 130.3 kg (287 lb 3.2 oz) 09/13/2023 3:24 PM SKI INSTRUCTOR Height - - Body Mass Index 47.79 08/09/2023 2:59 PM CDT documented in this encounter Patient Instructions * Patient Instructions* Ok Jorge MD - 09/13/2023 3:15 PM SKI INSTRUCTOR Please take Lantus 18 units in the morning Please take NovoLog (Humalog) 16-13-13 units before each meal Please use correctional [...] 400 +9 UNITS ABOVE 400 +10 UNITS INSTRUCTOR documented in this encounter Progress Notes * Ok Jorge MD - 09/13/2023 3:15 PM CST Subject&Objective Loretta Penn is a 62-year-old woman who comes to the Endocrinology office to discuss management of type 2 diabetes mellitus. 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 Other pertinent health history includes hypertension, dyslipidemia, and obesity. The patient was initially diagnosed with diabetes > years ago. Medical history is taken from her and her sister. Currently, Ms. Penn takes Lantus 18 units in the morning, Humalog 16 units with breakfast, 13units with lunch, and 10 units with supper for management of hyperglycemia. The patient reports infrequent, mild hypoglycemic events with intact symptoms of hypoglycemia awareness. The patient deniedsevere low blood sugar events requiring third alliance party intervention. Review of her CGM download for the past four weeks showed morning values in the range of 180 to 250 mg/dL, lunch values ranging from 130 to 180 mg/dL, dinner values in the range of 140 to 180 mg/dL, and bedtime values ranging from 150 to 220 mg/dL. Average blood glucose was 190 mg/dL +/- 48. Hemoglobin A1c obtained by POC testing today was 8.2%, improved from the previous measurement of 8.4% obtained in April 2023. Physical Exam Vitals: 09/13/23 1524 BP: 110/74 Pulse: 74 Resp: 16 Temp: 96.8 ??F (36 ??C) SpO2: 95% Weight: 287 lb 3.2 oz (130.3 kg) Constitutional: appears well-developed and well-nourished. No acute distress. Head: Normocephalic and atraumatic. Cardiovascular: Normal rate and regular rhythm Pulmonary/Chest: Effort normal and breath sounds normal Lab Results Component Value Date HGBA1C 8.2 (A) 09/13/2023 Lab Results Component Value Date HEMATOCRIT 50.5 (H) 08/09/2023 Lab Results Component Value Date CREATININE 0.8 08/03/2023 GFRNA 58 (L) 06/21/2023 CALCIUM 10.2 06/21/2023 SGPTALT 18 06/21/2023 Lab Results Component Value Date SODIUM 137 06/21/2023 POTASSIUM 3.9 06/21/2023 CHLORIDE 100 06/21/2023 CO2VEN 29 06/21/2023 MAGNESIUM 2.0 12/13/2020 Her CGM download was reviewed. Assessment and Plan Assessment Loretta Penn is a middle-aged woman with type 2 diabetes mellitus whose glycemic control was not optimal based on review of her CGM download. Rising in blood sugar from dinner to HS indicatesthat there is room to increase Humalog at dinner. Treatment consideration and lifestyle modification were discussed with her at some length. She will change Humalog to 16-13-13 units before each meal for management of hyperglycemia. The patient will return for office reevaluation in 3 months. PLAN: 1. Take Lantus 18 units in the morning 2. Take Humalog 16-13-13 units before each meal 3. Correctional factor insulin dosed at 1:30 if CBG is > 140 mg/dl 4. Monitor blood sugar QAC/QHS 5. Bring CBG log for review 6. Contact Endocrinology Clinic for low blood sugar events 7. RTC in 3 months Obesity PLAN: 1. Low carb and calorie diet 2. Avoid snack and beverage between meal and at bedtime Hypoglycemia PLAN: 1. Consistent CHO diet 2. Rule of 15 Total time spent on this encounter on this date of service, including pre-visit review of separately obtained history, [id number] interaction performing medically appropriate physical exam, patientcounseling/education, interpretation of diagnostic results, care coordination and documentation was30 minute Ok Jorge MD 09/13/2023 INSTRUCTOR documented in this encounter Plan of Treatment Upcoming Encounters Date Type Department Care Team (Late st Contact Info) Description 10/08/2024 2:15 PM SKI INSTRUCTOR Office Visit [facility] UROLOGY #2 [place] [address] Orlin Urbina, COIL CONNECTOR REPAIRER, STATE WILDLIFE OFFICER #2 [place] [address] 10/18/2024 2:15 PM SKI INSTRUCTOR [facility] M[facility] 1 [place] [phone] Oswaldo Serrano MD #[address] [address] Discharge Disposition: Discharged to home or Selfcare 11/29/2024 2:30 PM SKI INSTRUCTOR Office Visit [facility] - Family Medicine - [place] #2 [place] [address] Oswaldo Serrano MD #[address] [address] 11/30/2024 3:00 PM SKI INSTRUCTOR Office Visit [facility] - Endocrinology - [place] #2 [place] [phone] Ok Jorge MD #[address] [address] documented as of this encounter Procedures Procedure Name Priority Date/Time Associated Diagnosis Comments POCT GLYCOSYLATED HEMOGLOBIN Routine 09/13/2023 3:27 PM SKI INSTRUCTOR Type 2 diabetes mellitus treated with insulin (HCC) documented in this encounter Results * (ABNORMAL) POCT GLYCOSYLATED HEMOGLOBIN (09/13/2023 3:27 PM SKI INSTRUCTOR) HGB-A1C 8.2(A) 4 - 6 % Blood 09/13/2023 3:27 PM SKI INSTRUCTOR Ok Jorge MD POINT OF CARE TESTING (MANUAL) F inal Result documented in this encounter Visit Diagnoses Diagnosis Type 2 diabetes mellitus treated with insulin (HCC)- Primary Insulin dose changed (HCC) Hypoglycemia Hypoglycemia, unspecified Class 3 severe obesity due to excess calories with serious comorbidity and body mass index (BMI) of 45.0 to 49.9 in adult (HCC) documented in this encounter Additional Health Concerns Assessment Noted Time PHQ-9 Depression Total Score: 0 08/09/20 23 2:56 PM CDT documented as of this encounter Care Teams Workers' Compensation Claims Examiner Relationship Specialty Start Date End Date Oswaldo Serrano MD #[address] [address] PCP - General Family Medicine 05/19/17 Angel Crowe DPM #[address] [address] Consulting Physician Podiatry 06/16/17 Mora Fritz [place] Behavioral Health Navigator 06/15/18 Ok Jorge MD #[address] [address] Consulting Physician Endocrinology 05/12/22 Orlin Urbina APRN, STATE WILDLIFE OFFICER #2 [place] [address] Nurse Practitioner Advanced Practice Nurse 11/09/22 documented as of this encounter
--- OUTSIDE RECORDS SUMMARY | 2024-10-07 00:22 | XMS_ITS | Encounter Summary ---
Author Organization [facility] Address [address] [place] [address] Phone Care Team Providers Care Tight Cooper Name Role Phone Oswaldo Serrano MD Primary Care Provider [phone] Angel Crowe DPM Unavailable [phone] Mora Fritz Unavailable Unavailable Ok Jorge MD Unavailable Orlin Urbina APRN, ZOOLOGY TECHNICAL OFFICER Unavailable [phone] Reason for Visit * Reason Onset Date Comments Medication Refill 06/06/2023 Encounter Details Date Type Department Care Team (Late st Contact Info) Description 06/06/2023 MyChart RX Renewal [facility] - Family [facility] #2 [place] [address] Oswaldo Serrano MD #[address] [address] Medication Renewal Reviewed Social History Tobacco Use [...] Telephone Encounter - Zainab Roblero RN - 06/07/2023 7:47 AM CDT Medication failed the protocol, provider to review and approve the medication order if appropriate. Requested Prescriptions Pending Prescriptions Disp Refills nortriptyline (PAMELOR) 10 MG Capsule 90 Capsule 1 Sig: Take 1 Capsule by mouth nightly. Not Delegated - Tricyclic Agents Protocol Failed - 06/06/2023 7:53 PM Failed - This refill cannot be delegated Passed - Visit with relevant provider in past 12 months or upcoming 90 days Recent Visits Date Type Provider Dept 05/03/23 Office Visit Oswaldo Serrano MD [facility] 02/01/23 Office Visit Oswaldo Serrano MD [facility] 01/13/23 Telemedicine Oswaldo Serrano MD [facility] 10/14/22 Office Visit Oswaldo Serrano MD [facility] 08/26/22 Office Visit Connor Yuan APRN, [facility] Showing recent visits within past 365 days and meeting all other requirements Future Appointments Date Type Provider Dept 08/09/23 Appointment Oswaldo Serrano MD [facility] Showing future appointments within next 90 days and meeting all other requirements documented in this encounter Plan of Treatment Upcoming Encounters Date Type Department Care Team (Late st Contact Info) Description 10/08/2024 2:15 PM REACTOR FUELING SUPERVISOR Office Visit [facility] UROLOGY #2 [place] [phone] Orlin Urbina APRN, ZOOLOGY TECHNICAL OFFICER #2 [place] [address] 10/18/2024 2:15 PM REACTOR FUELING SUPERVISOR Appointment [facility] Mammography 1 [place] [address] Oswaldo Serrano MD #[address] [address] Discharge Disposition: Discharged to home or Selfcare 11/29/2024 2:30 PM REACTOR FUELING SUPERVISOR Office Visit [facility] - Family Medicine - [place] #2 [facility] [place] [address] Oswaldo Serrano MD #[address] [address] 11/30/2024 3:00 PM REACTOR FUELING SUPERVISOR Office Visit [facility] - Endocrinology - [place] #2 [place] [address] Ok Jorge MD #[address] [place] [address] documented as of this encounter Visit Diagnoses Not on filedocumented in this encounter Additional Health Concerns Assessment Noted Time PHQ-9 Depression Total Score: 0 10/14/19 23 11:00 AM REACTOR FUELING SUPERVISOR documented as of this encounter Care Teams Tight Cooper Relationship Specialty Start Date End Date Oswaldo Serrano MD #[address] [address] PCP - General Family Medicine 05/19/17 Angel Crowe DPM #[address] [address] Consulting Physician Podiatry 06/16/[address] Behavioral Health Navigator 06/15/18 Ok Jorge MD #[address] [address] Consulting Physician Endocrinology 05/12/22 Orlin Urbina APRN, ZOOLOGY TECHNICAL OFFICER #2 [place] [address] Nurse Practitioner Advanced Practice Nurse 11/09/22 documented as of this encounter
--- OUTSIDE RECORDS SUMMARY | 2024-10-07 00:22 | XMS_ITS | Encounter Summary ---
Author Organization [facility] Address [address] [place] [address] Phone Care Team Providers Care Animal Keeper Name Role Phone Oswaldo Serrano MD Primary Care Provider [phone] Angel Crowe DPCiara Unavailable Mora Fritz Unavailable Unavailable Ok Jorge MD Unavailable Orlin Urbina APRN, CITIZENSHIP TEACHER Unavailable [phone] Reason for Visit * Reason Comments Medication Refill Encounter Details Date Type Department Care Team (Late st Contact Info) Description 06/09/2023 Refill [facility] - Family Medicine - [place] #2 [place] [address] Oswaldo Serrano MD #[address] [address] Medication Refill Social History Tobacco Use Types [...] Encounter - Maria Luisa Gallegos RN - 06/09/2023 11:20 AM CDT Warning activated: Drug-Drug: escitalopram and nortriptyline Per nursing clinical judgement, provider to review and approve the medication(s) order(s) if appropriate. Requested Prescriptions Pending Prescriptions Disp Refills escitalopram (LEXAPRO) 10 MG Tablet [Pharmacy Med Name: ESCITALOPRAM 10MG TABLETS] 90 Tablet 1 Sig: TAKE 1 TABLET BY MOUTH DAILY SSRI (6 Month Refill Only) Protocol Passed - 06/09/2023 11:06 AM Passed - Visit with relevant provider [...] with SSRI for at least 6 months Passed - Has an encounter in the past 6 months with a depression, anxiety, adjustment disorder, OCD, or PTSD visit diagnosis documented in this encounter Plan of Treatment Upcoming Encounters Date Type Department Care Team (Ronan reed Contact Info) Description 10/08/2024 2:15 PM EMISSIONS TECHNICIAN Office Visit [facility]YS[facility]IAN GROUP UROLOGY #2 [place] [address] Orlin Urbina APRN, CITIZENSHIP TEACHER #2 [place] [address] 10/18/2024 2:15 PM EMISSIONS TECHNICIAN Appointment [facility] Mammography 1 [place] [address] Oswaldo Serrano MD #[address] [address] Discharge Disposition: Discharged to home or Selfcare 11/29/2024 2:30 PM EMISSIONS TECHNICIAN Office Visit [facility] - Family Medicine - [place] #2 [place] [address] Oswaldo Serrano MD #[address] [address] 11/30/2024 3:00 PM EMISSIONS TECHNICIAN Office Visit [facility] - Endocrinology - [place] #2 [place] [address] Ok Jorge MD #[address] [place] [address] documented as of this encounter Visit Diagnoses Not on filedocumented in this encounter Additional Health Concerns Assessment Noted Time PHQ-9 Depression Total Score: 0 10/14/19 23 11:00 AM EMISSIONS TECHNICIAN documented as of this encounter Care Teams Animal Keeper Relationship Specialty Start Date End Date Oswaldo Serrano MD #[address] [address] PCP - General Family Medicine 05/19/17 Angel Crowe DPM #[address] [address] Consulting Physician Podiatry 06/16/17 Mora Fritz Behavioral Health Navigator 06/15/18 Ok Jorge MD #[address] [address] Consulting Physician Endocrinology 05/12/22 Orlin Urbina APRN, CITIZENSHIP TEACHER #2 [place] [address] Nurse Practitioner Advanced Practice Nurse 11/09/22 documented as of this encounter
--- OUTSIDE RECORDS SUMMARY | 2024-10-07 00:22 | XMS_ITS | Encounter Summary ---
Author Organization [facility] Address [address] [place] [address] Phone Care Team Providers Care Personnel Associate Name Role Phone Oswaldo Serrano MD Primary Care Provider [phone] Angel Crowe DPM Unavailable [phone] Mora Fritz Unavailable Unavailable Ok Jorge MD Unavailable Orlin Urbina APRN, PROJECT CREW WORKER Unavailable + [phone] Reason for Visit * Reason Comments Follow-up 2months Overactive Bladder Encounter Details Date Type Department Care Team (Late st Contact Info) Description 06/21/2023 3:30 PM CDT Office Visit [facility] #2 [place] [address] Orlin Urbina, STOCK TAKER, PROJECT CREW WORKER #2 [place] [address] OAB (overactive bladder) (Primary Dx); Urinary incontinence, urge Discharge Disposition: Discharged to home or Selfcare Social History Tobacco Use Types Packs/Day Years Used Date Smoking Tobacco: Never Smokeless Tobacco: Never Tobacco Cessation:Counseling Given: No Alcohol Use Standard Drinks/Week Comments No 0 (1 standard drink = 0.6 oz pur e alcohol) PHQ-2 Answer Date Recorded Total Score - Questions 1-9 0 0 02/2023 Education Answer Date Recorded What [...] PM CDT documented as of this encounter Last Filed Vital Signs Vital Sign Reading Time Taken Comments Blood Pressure 106/72 06/21/2023 3:19 PM CDT Pulse 84 06/21/2023 3:19 PM CDT Temperature 35.9 ??C (96.7 ??F) 06/21/2023 3:19 PM CD T Respiratory Rate 19 06/21/2023 3:19 PM CDT Oxygen Saturation 93% 06/21/2023 3:19 PM CDT Inhaled Oxygen Concentration - - Weight 128.8 kg (284 lb) 06/21/2023 3:19 PM CDT Height 165.1 cm (5' 5 ) 06/21/2023 3:19 PM CDT Body Mass Index 47.26 06/21/2023 3:19 PM CDT documented in this encounter Progress Notes * Orlin Urbina, STOCK TAKER, PROJECT CREW WORKER - 06/21/2023 3:30 PM CDT UROLOGY [facility] [address] [facility], [address] [place] [address] PHONE: FAX: Assessment & Plan OAB-failed Myrbetriq and Trospium. Avoiding other anticholinergics due to Beers criteria and cognitive side effects. Best improvement with Gemtesa. Plan to continue. Patient to continue behavioral strategies such as limiting bladder irritants. Patient to follow-up in 6 months-sooner if worse Subjective: 11/09/2022 HPI: HPI: Loretta Penn presents to the [...] hematuria. UA today is negative for infection. The following portions of the patient's chart were reviewed in this encounter and updated as appropriate: Allergies ROS: Review of Systems Constitutional: Negative for [...] abnormal. Lab Results Component Value Date WBC 5.88 01/21/2022 HEMOGLOBIN 14.6 01/21/2022 HEMATOCRIT 44.1 01/21/2022 PLATELETCNT 285 01/21/2022 MCV 97.6 (H) 01/21/2022 Lab Results Component Value Date SODIUM 135 (L) 01/21/2022 POTASSIUM 4.5 01/21/2022 CHLORIDE 98 (L) 01/21/2022 CO2VEN 26 01/21/2022 ANIONGAP 15.5 01/21/2022 GLUCOSE 289 (H) 01/21/2022 BUN 17 01/21/2022 CREATININE 0.75 01/21/2022 BCRATIO8 23 (H) 01/21/2022 TOTALPROTEIN 7.2 01/21/2022 ALBUMIN 4.1 01/21/2022 AGRATIO 0.9 07/16/2017 CALCIUM 9.5 01/21/2022 TBIL 0.5 01/21/2022 SGOTAST 22 01/21/2022 SGPTALT 24 01/21/2022 ALKALINEPHO 160 (H) 01/21/2022 GFRNA >60 01/21/2022 GFRA >60 01/21/2022 No results found for: PSASCREEN, PSA, PSAFREE, PSAPCNTFREE, PSATOTAL Results for orders placed or performed in visit on 05/03/23 CULTURE, URINE Specimen: Urine Clean Catch; Culture Result Value Ref Range Status CULTURE RESULTS Final MIXED GROWTH OF 3 OR MORE ORGANISMS, PROBABLE COLLECTION CONTAMINATION, SUGGEST REPEAT URINE CULTURE. Results for orders placed or performed in visit on 01/05/22 URINALYSIS REFLEX IF INDICATED BY ABNORMAL RESULTS Result Value Ref Range Status SPECIFIC GRAVITY 1.015 1.003 - 1.030 Final URINE PH 5.0 5.0 - 9.0 Final WBC ESTERASE Negative Negative Final NITRITE Negative Negative Final PROTEIN, RANDOM URINE Negative Negative Final URINE GLUCOSE, QUAL Negative Negative Final URINE KETONES Negative Negative Final UROBILINOGEN Normal Normal mg/dL Final URINE BLOOD 25 /uL (A) Negative alec/ul Final URINALYSIS COLOR Yellow Final URINALYSIS CLARITY Clear Final WBC (Urine) 0-5 Negative, 0-5 /hpf Final URINE RBC'S 3-5 (A) Negative, 0-2 /hpf Final EPITHELIAL CELLS Negative /lpf Final BACTERIA, URINE Negative Negative /hpf Final Results for orders placed or performed in [...] previous visit from the past 365 days. Loretta was seen today for follow-up and overactive bladder. Diagnoses and all orders for this visit: OAB (overactive bladder) - POCT UA AUTOMATED W/O MICRO By: Orlin Urbina APRN, CNP, 06/21/2023, 3:12 PM CDT Primary Care Physician: Oswaldo Serrano MD documented in this encounter Plan of Treatment Upcoming Encounters Date Type Department Care Team (Late st Contact Info) Description 10/08/2024 2:15 PM FINANCE LEAD Office Visit [facility] #2 [place] [address] Orlin Urbina APRN, CNP #2 [place] [address] 10/18/2024 2:15 PM FINANCE LEAD [facility] 1 [place] [phone] Oswaldo Serrano MD #[address] [address] Discharge Disposition: Discharged to home or Selfcare 11/29/2024 2:30 PM FINANCE LEAD [facility] #2 [place] [address] Oswaldo Serrano MD #[address] [address] 11/30/2024 3:00 PM FINANCE LEAD Office Visit [facility] - [facility] - [place] #2 [place] [address] Ok Jorge MD #2 [facility] [address] [place] [address] documented as of this encounter Procedures Procedure Name Priority Date/Time Associated Diagnosis Comments POCT UA AUTOMATED W/O MICRO Routine 06/21/2023 3:25 PM CDT OAB (overactive bladder) documented in this encounter Results * (ABNORMAL) POCT UA AUTOMATED W/O MICRO (06/21/2023 3:25 PM CDT) POC UA SPECIFIC GRAVITY 1.010 URINE PH 5.0 5.0 - 9.0 POC URINE LEUKOCYTES Negative Negative Lucas/uL POC URINE NITRITE Negative Negative POC URINE PROTEIN Negative Negative mg/dL POC URINE GLUCOSE >1000 mg/dL(A) Negative, Norm mg/dL POC URINE KETONE Negative Negative mg/dL POC URINE UROBILINOGEN Norm Norm, 0.2 E.U./dL (mg/dL), 1 E.U./dL (mg/dL) POC URINE BILIRUBIN Negative Negative mg/dL POC URINE BLOOD INSTRUMENT TR(A) Negative Alec/uL POC URINE COLOR Yellow POC URINE CLARITY Clear Urine 06/21/2023 3:25 PM CDT Orlin Urbina APRN, PROJECT CREW WORKER POINT OF CARE TESTING (MANUAL) Final Result documented in this encounter Visit Diagnoses Diagnosis OAB (overactive bladder)- Primary Hypertonicity of bladder Urinary incontinence, urge Urge incontinence documented in this encounter Additional Health Concerns Assessment Noted Time PHQ-9 Depression Total Score: 0 10/14/19 23 11:00 AM FINANCE LEAD documented as of this encounter Care Teams Personnel Associate Relationship Specialty Start Date End Date Oswaldo Serrano MD #2 [facility] [address] [place] [address] PCP - General Family Medicine 05/19/17 Angel Crowe DPM #2 [facility] [address] [place] [address] Consulting Physician Podiatry 06/16/17 Mora Fritz [place] Behavioral Health Navigator 06/15/18 Ok Jorge MD #[address] [address] Consulting Physician Endocrinology 05/12/22 Orlin Urbina, STOCK TAKER, PROJECT CREW WORKER #2 [place] [address] Nurse Practitioner Advanced Practice Nurse 11/09/22 documented as of this encounter
--- OUTSIDE RECORDS SUMMARY | 2024-10-07 00:22 | XMS_ITS | Encounter Summary ---
Author Organization [facility] Address [address] [place] [address] Phone Care Team Providers Care Park Guide Name Role Phone Oswaldo Serrano MD Primary Care Provider [phone] Angel Crowe DPM Unavailable Mora Fritz Unavailable Unavailable Ok Jorge MD Unavailable Orlin Urbina APRN, RETAIL STORE ASSISTANT Unavailable [phone] Reason for Visit * Reason Onset Date Comments Medication Refill 07/23/2023 Encounter Details Date Type Department Care Team (Late st Contact Info) Description 07/23/2023 MyChart RX Renewal [facility] - [place] #[address] [place] [address] Ok Jorge MD #[address] [address] Medication Renewal Reviewed Social History [...] st Contact Info) Description 10/08/2024 2:15 PM GROUP HOME COUNSELOR Office Visit [facility] #2 [place] [address] Orlin Urbina, ENGINEERING TECHNICIAN, RETAIL STORE ASSISTANT #2 [place] [address] 10/18/2024 2:15 PM GROUP HOME COUNSELOR [facility] 1 [place] [phone] Oswaldo Serrano MD #[address] [address] Discharge Disposition: Discharged to home or Selfcare 11/29/2024 2:30 PM GROUP HOME COUNSELOR [facility] Visit [facility] #2 [place] [address] Oswaldo Serrano MD #[address] [address] 11/30/2024 3:00 PM GROUP HOME COUNSELOR Office Visit [facility] - [place] #2 [place] [address] Ok Jorge MD #[address] [address] documented as of this encounter Visit Diagnoses Not on filedocumented in this encounter Additional Health Concerns Assessment Noted Time PHQ-9 Depression Total Score: 0 10/14/19 11:00 AM GROUP HOME COUNSELOR documented as of this encounter Care Teams Park Guide Relationship Specialty Start Date End Date Oswaldo Serrano MD #[address] [address] PCP - General Family Medicine 05/19/17 Angel Crowe DPM #[address] [address] Consulting Physician Podiatry 06/16/17 Mora Fritz [place] Behavioral Health Navigator 06/15/18 Ok Jorge MD #[address] [address] Consulting Physician Endocrinology 05/12/22 Orlin Urbina ENGINEERING TECHNICIAN, RETAIL STORE ASSISTANT #2 [place] [address] Nurse Practitioner Advanced Practice Nurse 11/09/22 documented as of this encounter
--- OUTSIDE RECORDS SUMMARY | 2024-10-07 00:22 | XMS_ITS | Encounter Summary ---
Author Organization [employer] Care Team Providers Care Pile Driver Operator Helper Name Role Phone Oswaldo Serrano MD Primary Care Provider [phone] Angel Crowe DPM Unavailable [phone] Mora Fritz Unavailable Unavailable Ok Jorge MD Unavailable Orlin Urbina APRN, OIL HEATERMAN Unavailable + [phone] Encounter Details Date Type Department Care Team (Latest Contact Info) Description 02/01/2023 Travel Social History Tobacco Use Types Packs/Day [...] st Contact Info) Description 10/08/2024 2:15 PM ELECTROTYPER Office Visit [facility] #2 [place] [address] Orlin Urbina, VOCATIONAL TRAINER, OIL HEATERMAN #[address] [place] [address] 10/18/2024 2:15 PM ELECTROTYPER [facility] 1 [place] [address] Oswaldo Serrano MD #[address] [address] Discharge Disposition: Discharged to home or Selfcare 11/29/2024 2:30 PM ELECTROTYPER [facility] Visit [facility] - [place] #2 [place] [address] Oswaldo Serrano MD #[address] [address] 11/30/2024 3:00 PM ELECTROTYPER Office Visit [facility] - [place] #2 [place] [address] Ok Jorge MD #[address] [address] documented as of this encounter Visit Diagnoses Not on filedocumented in this encounter Additional Health Concerns Assessment Noted Time PHQ-9 Depression Total Score: 0 01/05/20 23 11:00 AM ELECTROTYPER documented as of this encounter Care Teams Pile Driver Operator Helper Relationship Specialty Start Date End Date Oswaldo Serrano MD #2 [facility] [address] [place] [address] PCP - General Family Medicine 05/19/17 Angel Crowe DPM #2 [facility] [address] [place] [address] Consulting Physician Podiatry 06/16/17 Mora Fritz [place] Behavioral Health Navigator 06/15/18 Ok Jorge MD #2 [facility] [address] [place] [address] Consulting Physician Endocrinology 05/12/22 Orlin Urbina, VOCATIONAL TRAINER, OIL HEATERMAN #2 [place] [address] Nurse Practitioner Advanced Practice Nurse 11/09/22 documented as of this encounter
--- OUTSIDE RECORDS SUMMARY | 2024-10-07 00:22 | XMS_ITS | Encounter Summary ---
Author Organization [facility] Address [address] [place] [address] Phone Care Team Providers Care Stonecutter Hand Name Role Phone Oswaldo Serrano MD Primary Care Provider [phone] Angel Crowe DPCiara Unavailable Mora Fritz Unavailable Unavailable Ok Jorge MD Unavailable Orlin Urbina APRN, MEDICAL RECORDS SECRETARY Unavailable [phone] Reason for Visit * Reason Comments Medication Refill Encounter Details Date Type Department Care Team (Late st Contact Info) Description 08/11/2023 Refill [facility] - [place] #2 [place] [address] Oswaldo Serrano MD #[address] [address] Medication Refill Social History Tobacco Use Types [...] suspected to have Coronavirus/COVID-19? No / Unsure 08/09/2023 2:51 PM CDT documented as of this encounter Miscellaneous Notes * Telephone Encounter - Mica Morales RN - 08/11/2023 10:50 AM CDT Medication(s) [facility] and [facility] Medication Refill Standing Order for Pediatricand Adult Patients. Requested Prescriptions Pending Prescriptions Disp Refills ??? docusate sodium (COLACE) 100 MG Capsule [Pharmacy Med Name: DOCUSATE SOD 100MG CAPSULES] 60 Capsule 2 Sig: TAKE 1 CAPSULE BY MOUTH TWICE DAILY. Laxatives Protocol Passed - 08/11/2023 7:51 AM Passed - Visit with relevant provider in past 12 months or upcoming 90 days Recent Visits Date Type Provider Dept 08/09/23 Office Visit Oswaldo Serrano MD [facility] 05/03/23 Office Visit Oswaldo Serrano MD [facility] 02/01/23 Office Visit Oswaldo Serrano MD [facility] 01/13/23 Telemedicine Oswaldo Serrano MD [facility] 10/14/22 Office Visit Oswaldo Serrano MD [facility] 08/26/22 Office Visit Connor Yuan, SIGN WIRER, MEDICAL RECORDS SECRETARY [facility] Showing recent visits within past 365 days and meeting all other requirements Future Appointments Date Type Provider Dept 11/09/23 Appointment Oswaldo Serrano MD [facility] Showing future appointments within next 90 days and meeting all other requirements Passed - Up to date with colon cancer screening Health Maintenance documented in this encounter Plan of Treatment Upcoming Encounters Date Type Department Care Team (Late st Contact Info) Description 10/08/2024 2:15 PM COMPUTER TYPESETTER KEYLINER Office Visit [facility] #2 [place] [address] Orlin Urbina, SIGN WIRER, MEDICAL RECORDS SECRETARY #2 [place] [address] 10/18/2024 2:15 PM COMPUTER TYPESETTER KEYLINER [facility] 1 [place] [address] Oswaldo Serrano MD #2 [facility] [address] [place] [address] Discharge Disposition: Discharged to home or Selfcare 11/29/2024 2:30 PM COMPUTER TYPESETTER KEYLINER [facility] Visit [facility] - [place] #2 [place] [address] Oswaldo Serrano MD #2 [facility] [address] [place] [address] 11/30/2024 3:00 PM COMPUTER TYPESETTER KEYLINER Office Visit [facility] - [place] #2 [place] [address] Ok Jorge MD #[address] [address] documented as of this encounter Visit Diagnoses Not on filedocumented in this encounter Additional Health Concerns Assessment Noted Time PHQ-9 Depression Total Score: 0 08/09/20 23 2:56 PM CDT documented as of this encounter Care Teams Stonecutter Hand Relationship Specialty Start Date End Date Oswaldo Serrano MD #2 [facility] [address] [place] [address] PCP - General Family Medicine 05/19/17 Angel Crowe DPM #2 [facility] [address] [place] [address] Consulting Physician Podiatry 06/16/17 Mora Fritz [place] Behavioral Health Navigator 06/15/18 Ok Jorge MD #[address] [address] Consulting Physician Endocrinology 05/12/22 Orlin Urbina APRN, MEDICAL RECORDS SECRETARY #2 [place] [address] Nurse Practitioner Advanced Practice Nurse 11/09/22 documented as of this encounter
--- OUTSIDE RECORDS SUMMARY | 2024-10-07 00:22 | XMS_ITS | Encounter Summary ---
Author Organization [facility] Address [address] [place] [address] Phone Care Team Providers Care Digital Assistant Name Role Phone Oswaldo Serrano MD Primary Care Provider [phone] Angel Crowe DPCiara Unavailable Mora Fritz Unavailable Unavailable Ok Jorge MD Unavailable Orlin Urbina APRN, CAPTAIN ASSISTANT Unavailable + [phone] Reason for Visit * Reason Comments Medication Refill Encounter Details Date Type Department Care Team (Late st Contact Info) Description 07/15/2023 Refill [facility] - [place] #2 [place] [address] Oswaldo Serrano MD #[address] [address] Medication Refill Social History Tobacco Use Types [...] Telephone Encounter - Mica Morales RN - 07/15/2023 1:37 PM CDT Per nursing clinical judgement, provider to review and approve the medication(s) order(s) if appropriate. Requested Prescriptions Pending Prescriptions Disp Refills omeprazole (PriLOSEC) 20 MG CAPSULE DELAYED RELEASE [Pharmacy Med Name: OMEPRAZOLE 20MG CAPSULES] 90 Capsule 1 Sig: TAKE 1 CAPSULE BY MOUTH DAILY Proton Pump Inhibitors Protocol Passed - 07/15/2023 12:49 PM Passed - Visit with relevant provider in past 12 months or upcoming 90 days Recent Visits Date Type Provider Dept 05/03/23 Office Visit Oswaldo Serrano MD [facility] 02/01/23 Office Visit Oswaldo Serrano MD [facility] 01/13/23 Telemedicine Oswaldo Serrano MD [facility] 10/14/22 Office Visit Oswaldo Serrano MD [facility] 08/26/22 Office Visit Connor Yuan APRN, CAPTAIN ASSISTANT [facility] Showing recent visits within past 365 days and meeting all other requirements Future Appointments Date Type Provider Dept 08/09/23 Appointment Oswaldo Serrano MD [facility] Showing future appointments within next 90 days and meeting all other requirements potassium chloride SA (KLORCON M) 20 MEQ Tablet Controlled Release 90 Tablet 1 Sig: Take 1 Tablet by mouth daily. There is no refill protocol information for this order documented in this encounter Plan of Treatment Upcoming Encounters Date Type Department Care Team (Late st Contact Info) Description 10/08/2024 2:15 PM PRESS OPERATOR HEAVY DUTY Office Visit [facility] #2 [place] [address] Orlin Urbina, BALL FRINGE MACHINE OPERATOR, CAPTAIN ASSISTANT #2 [place] [address] 10/18/2024 2:15 PM PRESS OPERATOR HEAVY DUTY [facility] 1 [place] [address] Oswaldo Serrano MD #[address] [address] Discharge Disposition: Discharged to home or Selfcare 11/29/2024 2:30 PM PRESS OPERATOR HEAVY DUTY Office Visit [facility] - [place] #2 [place] [address] Oswaldo Serrano MD #[address] [address] 11/30/2024 3:00 PM PRESS OPERATOR HEAVY DUTY Office Visit [facility] - [place] #2 [place] [address] Ok Jorge MD #[address] [address] documented as of this encounter Visit Diagnoses Diagnosis Chronic congestive heart failure, unspecified heart failure type (HCC) documented in this encounter Additional Health Concerns Assessment Noted Time PHQ-9 Depression Total Score: 0 10/14/19 11:00 AM PRESS OPERATOR HEAVY DUTY documented as of this encounter Care Teams Digital Assistant Relationship Specialty Start Date End Date Oswaldo Serrano MD #2 [facility] [address] [place] [address] PCP - General Family Medicine 05/19/17 Angel Crowe DPM #2 [facility] [address] [place] [address] Consulting Physician Podiatry 06/16/17 Mora Fritz [place] Behavioral Health Navigator 06/15/18 Ok Jorge MD #2 [facility] [address] [place] [address] Consulting Physician Endocrinology 05/12/22 Orlin Urbina BALL FRINGE MACHINE OPERATOR, CAPTAIN ASSISTANT #2 [place] [address] Nurse Practitioner Advanced Practice Nurse 11/09/22 documented as of this encounter
--- OUTSIDE RECORDS SUMMARY | 2024-10-07 00:22 | XMS_ITS | Encounter Summary ---
Author Organization [employer] Care Team Providers Care Drill Press Set Up Operator Radial Name Role Phone Oswaldo Serrano MD Primary Care Provider [phone] Angel Crowe DPM Unavailable [phone] Mora Fritz Unavailable Unavailable Ok Jorge MD Unavailable Orlin Urbina APRN, NAUMKEAG OPERATOR Unavailable + [phone] Encounter Details Date Type Department Care Team (Latest Contact Info) Description 03/08/2023 Travel Social History Tobacco Use Types Packs/Day [...] Contact Info) Description 10/08/2024 2:15 PM SENIOR INTERACTIVE DEVELOPER Office Visit [facility] #2 [place] [address] Orlin Urbina, THEATER EDUCATION TEACHER, NAUMKEAG OPERATOR #2 [place] [address] 10/18/2024 2:15 PM SENIOR INTERACTIVE DEVELOPER [facility] 1 [place] [address] Oswaldo Serrano MD #[address] [address] Discharge Disposition: Discharged to home or Selfcare 11/29/2024 2:30 PM SENIOR INTERACTIVE DEVELOPER Office Visit [facility] - [place] #2 [place] [address] Oswaldo Serrano MD #[address] [address] 11/30/2024 3:00 PM SENIOR INTERACTIVE DEVELOPER Office Visit [facility] - [place] #2 [place] [address] Ok Jorge MD #[address] [address] documented as of this encounter Visit Diagnoses Not on filedocumented in this encounter Additional Health Concerns Assessment Noted Time PHQ-9 Depression Total Score: 0 01/05/20 23 11:00 AM SENIOR INTERACTIVE DEVELOPER documented as of this encounter Care Teams Drill Press Set Up Operator Radial Relationship Specialty Start Date End Date Oswaldo Serrano MD #2 [facility] [address] [place] [address] PCP - General Family Medicine 05/19/17 Angel Crowe DPM #2 [facility] [address] [place] [address] Consulting Physician Podiatry 06/16/17 Mora Fritz [place] Behavioral Health Navigator 06/15/18 Ok Jorge MD #2 [facility] [address] [place] [address] Consulting Physician Endocrinology 05/12/22 Orlin Urbina, THEATER EDUCATION TEACHER, NAUMKEAG OPERATOR #2 [place] [address] Nurse Practitioner Advanced Practice Nurse 11/09/22 documented as of this encounter
--- OUTSIDE RECORDS SUMMARY | 2024-10-07 00:22 | XMS_ITS | Encounter Summary ---
Author Organization [facility] Address [address] [place] [address] Phone Care Team Providers Care Director Of Scout Work Name Role Phone Oswaldo Serrano MD Primary Care Provider [phone] Angel Crowe DPM Unavailable Mora Fritz Unavailable Unavailable Ok Jorge MD Unavailable Orlin Urbina APRN, CORPORATE COMPLIANCE DIRECTOR Unavailable + [phone] Reason for Visit * Reason Onset Date Comments Medication Refill 07/15/2023 Encounter Details Date Type Department Care Team (Late st Contact Info) Description 07/15/2023 MyChart RX Renewal [facility] #2 [place] [address] Oswaldo Serrano MD #[address] [address] Medication Renewal Declined Social History Tobacco Use [...] st Contact Info) Description 10/08/2024 2:15 PM INTERNATIONAL ACCOUNT MANAGER Office Visit [facility] UROLOGY #2 [place] [address] Orlin Urbina APRN, CORPORATE COMPLIANCE DIRECTOR #2 [place] [address] 10/18/2024 2:15 PM INTERNATIONAL ACCOUNT MANAGER [facility] 1 [place] [phone] Oswaldo Serrano MD #[address] [address] Discharge Disposition: Discharged to home or Selfcare 11/29/2024 2:30 PM INTERNATIONAL ACCOUNT MANAGER Office Visit [facility] #2 [place] [address] Oswaldo Serrano MD #[address] [address] 11/30/2024 3:00 PM INTERNATIONAL ACCOUNT MANAGER Office Visit [facility] - [place] [facility]2 [facility] [address] Ok Jorge MD #2 [facility] [address] [place] [address] documented as of this encounter Visit Diagnoses Not on filedocumented in this encounter Additional Health Concerns Assessment Noted Time PHQ-9 Depression Total Score: 0 10/14/19 23 11:00 AM INTERNATIONAL ACCOUNT MANAGER documented as of this encounter Care Teams Director Of Scout Work Relationship Specialty Start Date End Date Oswaldo Serrano MD #[address] [address] PCP - General Family Medicine 05/19/17 Angel Crowe DPM #[address] [address] Consulting Physician Podiatry 06/16/17 Mora Fritz [place] Behavioral Health Navigator 06/15/18 Ok Jorge MD #[address] [address] Consulting Physician Endocrinology 05/12/22 Orlin Urbina APRN, CORPORATE COMPLIANCE DIRECTOR #2 [place] [address] Nurse Practitioner Advanced Practice Nurse 11/09/22 documented as of this encounter
--- OUTSIDE RECORDS SUMMARY | 2024-10-07 00:22 | XMS_ITS | Encounter Summary ---
Author Organization [facility] Address [address] [place] [address] Phone Care Team Providers Care Cut Off Saw Set Up Operator Name Role Phone Oswaldo Serrano MD Primary Care Provider [phone] Angel Crowe DPM Unavailable Mora Fritz Unavailable Unavailable Ok Jorge MD Unavailable Orlin Urbina APRN, GEAR CHANGER Unavailable + [phone] Reason for Visit * Reason Comments Medication Refill Encounter Details Date Type Department Care Team (Late st Contact Info) Description 07/17/2023 Refill [facility] - [place] #2 [place] [address] Connor Yuan APRN, GEAR CHANGER #[address] [address] Medication Refill Social History Tobacco Use Types [...] Telephone Encounter - Mica Morales RN - 07/18/2023 1:50 PM CDT Medication(s) refilled and [facility] Medication Refill Standing Order for Pediatricand Adult Patients. Requested Prescriptions Pending Prescriptions Disp Refills ??? furosemide (LASIX) 40 MG Tablet [Pharmacy Med Name: FUROSEMIDE 40MG TABLETS] 90 Tablet 2 Sig: TAKE 1 TABLET BY MOUTH DAILY Diuretics Protocol Passed - 07/17/2023 5:47 AM Passed - Serum potassium on record in past 12 months POTASSIUM Date Value Ref Range Status 06/21/2023 3.9 3.5 - 5.1 mmol/L Final Passed - Serum sodium on record in past 12 months SODIUM Date Value Ref Range Status 06/21/2023 137 136 - 145 mmol/L Final Passed - Blood pressure on record in past 12 months Clinician-entered: BP Readings from Last 3 Encounters: 06/21/23 106/72 05/03/23 90/66 04/29/23 132/74 Patient-entered: No data recorded Passed - Visit with relevant provider in past 12 months or upcoming 90 days Recent Visits Date Type Provider Dept 05/03/23 Office Visit Oswaldo Serrano MD [facility] 02/01/23 Office Visit Oswaldo Serrano MD [facility] 01/13/23 Telemedicine Oswaldo Serrano MD [facility] 10/14/22 Office Visit Oswaldo Serrano MD [facility] 08/26/22 Office Visit Connor Yuan APRN, GEAR CHANGER [facility] recent visits within past 365 days and meeting all other requirements Future Appointments Date Type Provider Dept 08/09/23 Appointment Oswaldo Serrano MD [facility] Showing future appointments within next 90 days and meeting all other requirements Passed - GFR on record in past 12 months GFR, EST. NONAFRICAN Date Value Ref Range Status 06/21/2023 58 (L) >=60 Final documented in this encounter Plan of Treatment Upcoming Encounters Date Type Department Care Team (Late st Contact Info) Description 10/08/2024 2:15 PM FINISHED GARMENT INSPECTOR Office Visit [facility] UROLOGY #2 [place] [address] Orlin Urbina BODY JOINER, GEAR CHANGER #2 [place] [address] 10/18/2024 2:15 PM FINISHED GARMENT INSPECTOR [facility] 1 [place] [address] Oswaldo Serrano MD #[address] [address] Discharge Disposition: Discharged to home or Selfcare 11/29/2024 2:30 PM FINISHED GARMENT INSPECTOR Office Visit [facility] #2 [place] [address] Oswaldo Serrano MD #[address] [address] 11/30/2024 3:00 PM FINISHED GARMENT INSPECTOR Office Visit [facility] End[facility]ology - [place] #2 [place] [address] Ok Jorge MD #[address] [address] documented as of this encounter Visit Diagnoses Diagnosis Chronic congestive heart failure, unspecified heart failure type (HCC) documented in this encounter Additional Health Concerns Assessment Noted Time PHQ-9 Depression Total Score: 0 10/14/19 11:00 AM FINISHED GARMENT INSPECTOR documented as of this encounter Care Teams Cut Off Saw Set Up Operator Relationship Specialty Start Date End Date Oswaldo Serrano MD #[address] [address] PCP - General Family Medicine 05/19/17 Angel Crowe DPM #[address] [address] Consulting Physician Podiatry 06/16/17 Mora Fritz [place] Behavioral Health Navigator 06/15/18 Ok Jorge MD #[address] [address] Consulting Physician Endocrinology 05/12/22 Orlin Urbina, BODY JOINER, GEAR CHANGER #2 [place] [address] Nurse Practitioner Advanced Practice Nurse 11/09/22 documented as of this encounter
--- OUTSIDE RECORDS SUMMARY | 2024-10-07 00:22 | XMS_ITS | Encounter Summary ---
Author Organization [facility] Address [address] [address] Phone Care Team Providers Care Car Wrecker Name Role Phone Oswaldo Serrano MD Primary Care Provider [phone] Angel Crowe DPM Unavailable Mora Fritz Unavailable Unavailable Ok Jorge MD Unavailable Orlin Urbina APRN, AMPOULE SEALER Unavailable [phone] Encounter Details Date Type Department Care Team (Late st Contact Info) Description 10/18/2023 Telephone [facility] #2 [place] [address] Oswaldo Serrano MD #2 [facility] [id number] Social History Tobacco Use Types Packs/Day Years [...] Telephone Encounter - Oswaldo Serrano MD - 10/18/2023 2:05 PM TOUCHER UP ----- Message from Agnieszka Ledbetter sent at 10/18/2023 1:52 PM TOUCHER UP ----- Regarding: Order request Loretta is due for her 12 month follow up Bilateral DX Mamm and Bilateral Breast US. Could you please send orders for [id number] and [id number]. Thank You, Agnieszka Ledbetter Sponge Maker HER UP documented in this encounter Plan of Treatment Upcoming Encounters Date Type Department Care Team (Late st Contact Info) Description 10/08/2024 2:15 PM TOUCHER UP Office Visit [facility] UROLOGY #2 [place] [address] Orlin Urbina, DIRECTOR OF MATERIALS, AMPOULE SEALER #2 [place] [address] 10/18/2024 2:15 PM TOUCHER UP Appointment [facility] Mammography 1 [place] [address] Oswaldo Serrano MD #[address] [address] Discharge Disposition: Discharged to home or Selfcare 11/29/2024 2:30 PM TOUCHER UP Office Visit [facility] Medical [facility] - Family Medicine - [place] #2 [place] [address] Oswaldo Serrano MD #[address] [address] 11/30/2024 3:00 PM TOUCHER UP Office Visit [facility] Endocrinology - [place] #2 [place] [address] Ok Jorge MD #[address] [address] documented as of this encounter Visit Diagnoses Diagnosis Abnormal mammogram- Primary Abnormal mammogram, unspecified documented in this encounter Additional Health Concerns Assessment Noted Time PHQ-9 Depression Total Score: 0 08/09/20 23 2:56 PM CDT documented as of this encounter Care Teams Car Wrecker Relationship Specialty Start Date End Date Oswaldo Serrano MD #[address] [address] PCP - General Family Medicine 05/19/17 Angel Crowe DPM #[address] [address] Consulting Physician Podiatry 06/16/17 Mora Fritz [place] Behavioral Health Navigator 06/15/18 Ok Jorge MD #[address] [address] Consulting Physician Endocrinology 05/12/22 Orlin Urbina APRN, AMPOULE SEALER #2 [place] [address] Nurse Practitioner Advanced Practice Nurse 11/09/22 documented as of this encounter
--- OUTSIDE RECORDS SUMMARY | 2024-10-07 00:22 | XMS_ITS | Encounter Summary ---
Author Organization [employer] Care Team Providers Care Chemical Process Engineer Name Role Phone Oswaldo Serrano MD Primary Care Provider [phone] Angel Crowe DPM Unavailable [phone] Mora Fritz Unavailable Unavailable Ok Jorge MD Unavailable Orlin Urbina APRN, ANGLE SHEAR OPERATOR Unavailable + [phone] Encounter Details Date Type Department Care Team (Latest Contact Info) Description 04/29/2023 Travel Social History Tobacco Use Types Packs/Day [...] suspected to have Coronavirus/COVID-19? No / Unsure 04/29/2023 3:37 PM CDT documented as of this encounter Plan of Treatment Upcoming Encounters Date Type Department Care Team (Late st Contact Info) Description 10/08/2024 2:15 PM EDUCATIONAL PROGRAM ASSISTANT Office Visit [facility] GROUP UROLOGY #2 [place] [address] Orlin Urbina, HOSPITAL PHARMACIST, ANGLE SHEAR OPERATOR #2 [place] [address] 10/18/2024 2:15 PM EDUCATIONAL PROGRAM ASSISTANT [facility] 1 [place] [address] Oswaldo Serrano MD #[address] [address] Discharge Disposition: Discharged to home or Selfcare 11/29/2024 2:30 PM EDUCATIONAL PROGRAM ASSISTANT Office Visit [facility] - [place] #2 [place] [address] Oswaldo Serrano MD #[address] [address] 11/30/2024 3:00 PM EDUCATIONAL PROGRAM ASSISTANT Office Visit [facility] End[facility]ology - [place] #2 [place] [address] Ok Jorge MD #[address] [address] documented as of this encounter Visit Diagnoses Not on filedocumented in this encounter Additional Health Concerns Assessment Noted Time PHQ-9 Depression Total Score: 0 01/05/20 23 11:00 AM EDUCATIONAL PROGRAM ASSISTANT documented as of this encounter Care Teams Chemical Process Engineer Relationship Specialty Start Date End Date Oswaldo Serrano MD #2 [facility] [address] [place] [address] PCP - General Family Medicine 05/19/17 Angel Crowe DPM #2 [facility] [address] [place] [address] Consulting Physician Podiatry 06/16/17 Mora Fritz [place] Behavioral Health Navigator 06/15/18 Ok Jorge MD #2 [facility] [address] [place] [address] Consulting Physician Endocrinology 05/12/22 Orlin Urbina, HOSPITAL PHARMACIST, ANGLE SHEAR OPERATOR #2 [place] [address] Nurse Practitioner Advanced Practice Nurse 11/09/22 documented as of this encounter
--- OUTSIDE RECORDS SUMMARY | 2024-10-07 00:22 | XMS_ITS | Encounter Summary ---
Author Organization [facility] Address [address] [place] [address] Phone Care Team Providers Care Motor Man Name Role Phone Oswaldo Serrano MD Primary Care Provider [phone] Angel Crowe DPM Unavailable [phone] Mora Fritz Unavailable Unavailable Ok Jorge MD Unavailable Orlin Urbina APRN, SPIRITUAL CARE COORDINATOR Unavailable + [phone] Encounter Details Date Type Department Care Team (Late st Contact Info) Description 08/28/2023 Telephone [facility] #2 [place] [address] Oswaldo Serrano MD #2 [facility] [id number] Social History Tobacco Use Types Packs/Day Years [...] Telephone Encounter - Oswaldo Serrano MD - 09/01/2023 12:00 AM BOX OFFICE AGENT DONE. OFFICE AGENT documented in this encounter Plan of Treatment Upcoming Encounters Date Type Department Care Team (Late st Contact Info) Description 10/08/2024 2:15 PM BOX OFFICE AGENT Office Visit [facility] UROLOGY #2 [place] [address] Orlin Urbina, SOUND ENGINEER AUDIO CONTROL, SPIRITUAL CARE COORDINATOR #2 [place] [address] 10/18/2024 2:15 PM BOX OFFICE AGENT [facility] 1 [place] [address] Oswaldo Serrano MD #[address] [address] Discharge Disposition: Discharged to home or Selfcare 11/29/2024 2:30 PM BOX OFFICE AGENT Office Visit [facility] #2 [place] [address] Oswaldo Serrano MD #[address] [address] 11/30/2024 3:00 PM BOX OFFICE AGENT Office Visit [facility] End[facility]ology - [place] #2 [place] [address] Ok Jorge MD #[address] [address] documented as of this encounter Results * THYROID STIMULATING HORMONE (TSH) (11/09/2023 4:54 PM BOX OFFICE AGENT) TSH 1.902 0.300 - 5.000 mIU/L 11/09/2023 10:20 PM BOX OFFICE AGENT [facility] Blood Venipuncture / Unknown 11/09/2023 4:54 PM BOX OFFICE AGENT 11/09/2023 6:10 PM BOX OFFICE AGENT Oswaldo Serrano MD CHEMISTRY ORDERABLES Final Result [facility]1 [place] [address] documented in this encounter Visit Diagnoses Diagnosis Hypothyroidism, unspecified type- Primary Polycythemia Polycythemia vera documented in this encounter Additional Health Concerns Assessment Noted Time PHQ-9 Depression Total Score: 0 08/09/20 23 2:56 PM CDT documented as of this encounter Care Teams Motor Man Relationship Specialty Start Date End Date Oswaldo Serrano MD #[address] [address] PCP - General Family Medicine 05/19/17 Angel Crowe DPM #[address] [address] Consulting Physician Podiatry 06/16/17 Mora Fritz [place] Behavioral Health Navigator 06/15/18 Ok Jorge MD #2 [facility] [address] [place] [address] Consulting Physician Endocrinology 05/12/22 Orlin Urbina, SOUND ENGINEER AUDIO CONTROL, SPIRITUAL CARE COORDINATOR #2 [place] [address] Nurse Practitioner Advanced Practice Nurse 11/09/22 documented as of this encounter
--- OUTSIDE RECORDS SUMMARY | 2024-10-07 00:22 | XMS_ITS | Encounter Summary ---
Author Organization [employer] Care Team Providers Care Extruding Department Supervisor Name Role Phone Oswaldo Serrano MD Primary Care Provider [phone] Angel Crowe DPM Unavailable [phone] Mora Fritz Unavailable Unavailable Ok Jorge MD Unavailable Orlin Urbina APRN, ELECTRONIC PARTS SALESPERSON Unavailable + [phone] Encounter Details Date Type Department Care Team (Latest Contact Info) Description 08/09/2023 Travel Social History Tobacco Use Types Packs/Day [...] PM CDT documented as of this encounter Functional Status * Question Answer Date of Assessment Author Little interest or pleasure in doing things Not at all 08/09/2023 2:56 PM CDT Trudi Augustin CMA Feeling down, depressed, or hopeless Not at all 08/09/2023 2:56 PM CDT Trudi Augustin , DOMINICK * Over the past 2 weeks, how often have you been bothered by any of the following problems? Question Answer Date of Assessment Author Patient Health Questionnaire -2 Score 0 08/09/2023 2:56 PM CDT Trudi Augustin CMA documented as of this encounter Plan of Treatment Upcoming Encounters Date Type Department Care Team (Late st Contact Info) Description 10/08/2024 2:15 PM SIDE SEAM ENVELOPE MACHINE OPERATOR Office Visit [facility]IAN GROUP UROLOGY #2 [place] [address] Orlin Urbina APRN, ELECTRONIC PARTS SALESPERSON #2 [place] [address] 10/18/2024 2:15 PM SIDE SEAM ENVELOPE MACHINE OPERATOR [facility] 1 [place] [address] Oswaldo Serrano MD #[address] [address] Discharge Disposition: Discharged to home or Selfcare 11/29/2024 2:30 PM SIDE SEAM ENVELOPE MACHINE OPERATOR Office Visit [facility] #2 [place] [address] Oswaldo Serrano MD #[address] [address] 11/30/2024 3:00 PM SIDE SEAM ENVELOPE MACHINE OPERATOR Office Visit [facility] - [facility] - [place] #2 [facility] [place] [address] Ok Jorge MD #2 [facility] [address] [place] [address] documented as of this encounter Visit Diagnoses Not on filedocumented in this encounter Additional Health Concerns Assessment Noted Time PHQ-9 Depression Total Score: 0 08/09/20 23 2:56 PM CDT documented as of this encounter Care Teams Extruding Department Supervisor Relationship Specialty Start Date End Date Oswaldo Serrano MD #[address] [facility] [address] [place] [address] PCP - General Family Medicine 05/19/17 Angel Crowe DPM #[address] [address] Consulting Physician Podiatry 06/16/17 Mora Fritz [place] Behavioral Health Navigator 06/15/18 Ok Jorge MD #[address] [address] Consulting Physician Endocrinology 05/12/22 Orlin Urbina EVENTS MANAGER, ELECTRONIC PARTS SALESPERSON #2 [place] [address] Nurse Practitioner Advanced Practice Nurse 11/09/22 documented as of this encounter
--- OUTSIDE RECORDS SUMMARY | 2024-10-07 00:22 | XMS_ITS | Encounter Summary ---
Author Organization [facility] Address [address] [place] [address] Phone Care Team Providers Care Professional Application Designer Name Role Phone Oswaldo Serrano MD Primary Care Provider [phone] Angel Crowe DPM Unavailable Mora Fritz Unavailable Unavailable Ok Jorge MD Unavailable Orlin Urbina APRN, PUBLIC HEALTH SOCIAL WORKER Unavailable + [phone] Encounter Details Date Type Department Care Team (Late st Contact Info) Description 07/20/2023 Documentation Only [facility] - [place] #2 [place] [address] Oswaldo Serrano MD #[address] [address] Social History Tobacco Use Types Packs/Day Years [...] PM CDT documented as of this encounter Progress Notes * Zainab Robelro RN - 07/20/2023 7:55 AM CDT Form Completed and faxed back to [facility] for incontinence supplies successfully. documented in this encounter Plan of Treatment Upcoming Encounters Date Type Department Care Team (Late st Contact Info) Description 10/08/2024 2:15 PM FRAME WELDER CARGO UTILITY TRAILERS Office Visit [facility] GROUP UROLOGY #2 [place] [address] Orlin Urbina, PAINTER ROUGH, PUBLIC HEALTH SOCIAL WORKER #2 [place] [address] 10/18/2024 2:15 PM FRAME WELDER CARGO UTILITY TRAILERS [facility] 1 [place] [address] Oswaldo Serrano MD #[address] [address] Discharge Disposition: Discharged to home or Selfcare 11/29/2024 2:30 PM FRAME WELDER CARGO UTILITY TRAILERS Office Visit [facility] #2 [facility] [address] Oswaldo Serrano MD #[address] [place] [address] 11/30/2024 3:00 PM FRAME WELDER CARGO UTILITY TRAILERS Office Visit [facility] - Endocrinology [facility] #2 [place] [address] Ok Jorge MD #[address] [place] [address] documented as of this encounter Visit Diagnoses Not on filedocumented in this encounter Additional Health Concerns Assessment Noted Time PHQ-9 Depression Total Score: 0 10/14/19 23 11:00 AM FRAME WELDER CARGO UTILITY TRAILERS documented as of this encounter Care Teams Professional Application Designer Relationship Specialty Start Date End Date Oswaldo Serrano MD #[address] [address] PCP - General Family Medicine 05/19/17 Angel Crowe DPM #[address] [address] Consulting Physician Podiatry 06/16/17 Mora Fritz [place] Behavioral Health Navigator 06/15/18 Ok Jorge MD #[address] [place] [address] Consulting Physician Endocrinology 05/12/22 Orlin Urbina APRN, PUBLIC HEALTH SOCIAL WORKER #2 [place] [address] Nurse Practitioner Advanced Practice Nurse 11/09/22 documented as of this encounter
--- OUTSIDE RECORDS SUMMARY | 2024-10-07 00:22 | XMS_ITS | Encounter Summary ---
Author Organization [facility] Address [address] [place] [address] Phone Care Team Providers Care Malt Liquors Sales Representative Name Role Phone Oswaldo Serrano MD Primary Care Provider [phone] Angel Crowe DPM Unavailable [phone] Mora Fritz Unavailable Unavailable Ok Jorge MD Unavailable Orlin Urbina APRN, PILE TRIMMER Unavailable [phone] Reason for Visit * Reason Comments Follow-up Diabetes Mellitus a1c Encounter Details Date Type Department Care Team (Late st Contact Info) Description 04/29/2023 3:30 PM CDT Office Visit [facility] - [place] [address] [place] [address] Ok Jorge MD [address] [address] Type 2 diabetes mellitus treated with insulin (HCC) (Primary Dx); Class 3 severe obesity due to excess calories with serious comorbidity and body mass index (BMI) of 45.0 to 49.9 in adult (HCC); Insulin dose changed (HCC); Hypoglycemia Discharge Disposition: Discharged to home [...] Sign Reading Time Taken Comments Blood Pressure 132/74 04/29/2023 3:42 PM CDT Pulse 78 04/29/2023 3:42 PM CDT Temperature 37 ??C (98.6 ??F) 04/29/2023 3:42 PM CDT Respiratory Rate 20 04/29/2023 3:42 PM CDT Oxygen Saturation 97% 04/29/2023 3:42 PM CDT Inhaled Oxygen Concentration - - Weight 129.9 kg (286 lb 6.4 oz) 04/29/2023 3:42 PM CDT Height - - Body Mass Index 47.66 03/08/2023 3:17 PM CDT documented in this encounter Patient Instructions * Patient Instructions* Ok Jorge MD - 04/29/2023 3:30 PM CDT Please take Lantus 20 units in the morning Please take NovoLog (Humalog) 16-13-10 units before each meal Please use correctional [...] Progress Notes * Ok Jorge MD - 04/29/2023 3:30 PM CDT Subject&Objective Loretta Penn is a 62-year-old woman who comes to the Endocrinology office to discuss management of type 2 diabetes mellitus. 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 Other pertinent health history includes hypertension, dyslipidemia, and obesity. The patient was initially diagnosed with diabetes >10 years ago. Presently, the patient takes Lantus 17 units in the morning, Humalog 16 units with breakfast, 13 units with lunch, and 10 units with supper for management of hyperglycemia. The patient reports occasional, mild hypoglycemic events with intact symptoms of hypoglycemia awareness. Most episodes occur in the afternoon following lunch. The patient denied severe low blood sugar events requiring third alliance party intervention. Review of her CGM download for the past two weeks showed morning values in the range of 207 to 276 mg/dL, lunch values ranging from 169 to 210 mg/dL, dinner values in the range of 170 to 224 mg/dL, and bedtime values ranging from 120 to 214 mg/dL. Hemoglobin A1c obtained by POC testing today was 8.4%, increased from the previous measurement of 8% obtained in December 2022. Physical Exam Vitals: 04/29/23 1542 BP: 132/74 Pulse: 78 Resp: 20 Temp: 98.6 ??F (37 ??C) SpO2: 97% Weight: 286 lb 6.4 oz (129.9 kg) Constitutional: appears well-developed and well-nourished. No acute distress. Head: Normocephalic and atraumatic. Cardiovascular: Normal rate and regular rhythm Pulmonary/Chest: Effort normal and breath sounds normal Lab Results Component Value Date HGBA1C 8.4 (A) 04/29/2023 Assessment and Plan Assessment Loretta Penn is a middle-aged man with type 2 diabetes mellitus whose glycemic control was suboptimal based on both review of her CGM download and today's hemoglobin A1c measurement. The patient intentionally raises her blood glucose at night to avoid potential low blood sugar event. Risingin blood sugar from HS to AM indicates that there is room to increase basal insulin coverage. Treatment consideration and lifestyle modification were discussed with her and her sister at some length.She will increase Lantus to 20 units in the morning and reduce snack at bedtime. The patient will return for office reevaluation in 3 months. PLAN: 1. Increase Lantus to 20 units in the morning 2. Take Humalog 16-13-10 units before each meal 3. Correctional factor [...] including pre-visit review of separately obtained history, [id number] interaction performing medically appropriate physical exam, patientcounseling/education, interpretation of diagnostic results, care coordination and documentation was30 minute Ok Jorge MD 04/29/2023 documented in this encounter Plan of Treatment Upcoming Encounters Date Type Department Care Team (Late st Contact Info) Description 10/08/2024 2:15 PM LINE UP EXAMINER Office Visit [facility] UROLOGY #[address] [place] [address] Orlin Urbina, INSPECTOR BALANCE TRUING, PILE TRIMMER [address] [place] [address] 10/18/2024 2:15 PM LINE UP EXAMINER Appointment [facility] Mammography [address] [place] [address] Oswaldo Serrano MD #[address] [address] Discharge Disposition: Discharged to home or Selfcare 11/29/2024 2:30 PM LINE UP EXAMINER Office Visit [facility] - Family Medicine - [place] [address] [place] [address] Oswaldo Serrano MD #[address] [address] 11/30/2024 3:00 PM LINE UP EXAMINER Office Visit [facility] - Endocrinology - [place] [address] [place] [address] Ok Jorge MD #2 [facility] [address] [place] [address] documented as of this encounter Procedures Procedure Name Priority Date/Time Associated Diagnosis Comments POCT GLYCOSYLATED HEMOGLOBIN Routine 04/29/2023 3:46 PM CDT Type 2 diabetes mellitus treated with insulin (HCC) documented in this encounter Results * (ABNORMAL) POCT GLYCOSYLATED HEMOGLOBIN (04/29/2023 3:46 PM CDT) HGB-A1C 8.4(A) 4 - 6 % Blood 04/29/2023 3:46 PM CDT Ok Jorge MD POINT OF CARE TESTING (MANUAL) F inal Result documented in this encounter Visit Diagnoses Diagnosis Type 2 diabetes mellitus treated with insulin (HCC)- Primary Class 3 severe obesity due to excess calories with serious comorbidity and body mass index (BMI) of 45.0 to 49.9 in adult (HCC) Insulin dose changed ([facility]) Hypoglycemia Hypoglycemia, unspecified documented in this encounter Additional Health Concerns Assessment Noted Time PHQ-9 Depression Total Score: 0 10/14/19 23 11:00 AM LINE UP EXAMINER documented as of this encounter Care Teams Malt Liquors Sales Representative Relationship Specialty Start Date End Date Oswaldo Serrano MD #2 [facility] [address] [place] [address] PCP - General Family Medicine 05/19/17 Angel Crowe DPM #2 [facility] [address] [place] [address] Consulting Physician Podiatry 06/16/17 Mora Fritz Behavioral Health Navigator 06/15/18 Ok Jorge MD #2 [facility] [address] [place] [address] Consulting Physician Endocrinology 05/12/22 Orlin Urbina, INSPECTOR BALANCE TRUING, PILE TRIMMER #[address] [place] [address] Nurse Practitioner Advanced Practice Nurse 11/09/22 documented as of this encounter
--- OUTSIDE RECORDS SUMMARY | 2024-10-07 00:22 | XMS_ITS | Encounter Summary ---
Author Organization [facility] Address [address] [place] [address] Phone Care Team Providers Care Color Printer Operator Name Role Phone Oswaldo Serrano MD Primary Care Provider [phone] Angel Crowe DPM Unavailable Mora Fritz Unavailable Unavailable Ok Jorge MD Unavailable Orlin Urbina APRN, HOSPICE FELLOW Unavailable [phone] Reason for Visit * Reason Comments Follow-up Encounter Details Date Type Department Care Team (Late st Contact Info) Description 08/09/2023 2:45 PM CDT Office Visit [facility] - Family Medicine [facility] #2 [place] [address] Oswaldo Serrano MD #[address] [address] Urinary frequency (Primary Dx); Fatigue, unspecified type; B12 deficiency; Hypothyroidism, unspecified type Discharge Disposition: Discharged to home or Selfcare [...] Sign Reading Time Taken Comments Blood Pressure 108/72 08/09/2023 2:59 PM CDT Pulse 99 08/09/2023 2:59 PM CDT Temperature 36.3 ??C (97.3 ??F) 08/09/2023 2:59 PM CD T Respiratory Rate 16 08/09/2023 2:59 PM CDT Oxygen Saturation 94% 08/09/2023 2:59 PM CDT Inhaled Oxygen Concentration - - Weight 130.2 kg (287 lb) 08/09/2023 2:59 PM CDT Height 165.1 cm (5' 5 ) 08/09/2023 2:59 PM CDT Body Mass Index 47.76 08/09/2023 2:59 PM CDT documented in this encounter Functional Status * Question Answer Date of Assessment Author Little interest or pleasure in doing things Not at all 08/09/2023 2:56 PM CDT Trudi Augustin CMA Feeling down, depressed, or hopeless Not at all 08/09/2023 2:56 PM CDT Trudi Augustin CMA * Over the past 2 weeks, how often have you been bothered by any of the following problems? Question Answer Date of Assessment Author Patient Health Questionnaire -2 Score 0 08/09/2023 2:56 PM CDT Trudi Augustin CMA documented as of this encounter Patient Instructions * Patient Instructions* Oswaldo Serrano MD - 08/09/2023 2:45 PM CDT Do urine test & labs today! Call me end of this week to discuss the urine results. See all other doctors as scheduled. documented in this encounter Progress Notes * Trudi Augustin CMA - 08/09/2023 2:45 PM CDT Loretta Penn, 62 y.o., female is here for Follow-up Medication Refills: Patient reports/denies need for medication refills. Orders Pended: no Requested Prescriptions No prescriptions requested or ordered in this encounter Home Medications Medication Sig Start Date End Date Taking? Authorizing Provider albuterol 108 (90 Base) MCG/ACT Aerosol Solution take 1-2 Puffs by inhalation every 4 hours as needed for Cough. 10/07/21 Oswaldo Serrano MD Blood Glucose Monitoring Suppl Device Test blood glucose 1x daily, E11.9, insulin dependent 12/30/22Ok Jorge MD Blood Glucose Monitoring Suppl Device Test blood glucose 4 times daily. E11.9, insulin dependent 12/19/19 Ok Jorge MD carvedilol (COREG) 25 MG Tablet 25 mg 2 times daily. 05/06/17 Nica Muniz MD Continuous Blood Gluc Professor Of Engineering (Dexcom G7 Professor Of Engineering) Device 1 Each by Does not apply route 4 times daily. Use to check glucose 4x daily. 04/29/23 Ok Jorge MD Continuous Blood Gluc Sensor (Dexcom G6 Sensor) Misc 10/05/22 Nica Muniz MD Continuous Blood Gluc Sensor (Dexcom G7 Sensor) Misc 1 Each by Does not apply route every 10 days. Change sensor every 10 days. 04/29/23 Ok Jorge MD Continuous Blood Gluc Transmit (Dexcom G6 Transmitter) Misc 12/03/21 Nica Muniz MD Cyanocobalamin (B-12) 500 MCG Tablet Take 1 Tablet by mouth daily. 11/14/22 Oswaldo Serrano MD Dapagliflozin Propanediol (Farxiga) 10 MG Tablet Take by mouth. 06/01/22 Nica Muniz MD dilTIAZem (CARDIZEM) 30 MG Tablet TK 1 T PO TID 04/28/17 Nica Muniz MD docusate sodium (COLACE) 100 MG Capsule Take 1 Capsule by mouth 2 times daily. 05/18/23 Oswaldo Serrano MD Entresto 24-26 MG Tablet 09/11/21 Nica Muniz MD escitalopram (LEXAPRO) 10 MG Tablet TAKE 1 TABLET BY MOUTH DAILY 06/09/23 Oswaldo Serrano MD fluticasone (FLONASE) 50 MCG/ACT Suspension 1-2 Sprays by Nasal route daily. Use in each nostril asdirected. 02/01/23 Oswaldo Serrano MD furosemide (LASIX) 40 MG Tablet TAKE 1 TABLET BY MOUTH DAILY 07/18/23 Connor Yuan APRN, YUDI Glucose Blood (True Metrix Blood Glucose Test) Strip TEST USING ONE STRIP FOUR TIMES DAILY E11.9, insulin dependent 12/24/22 Ok Jorge MD Glucose Blood Strip Use to test blood glucose 4x daily. E11.9, insulin dependent 07/25/23 Ok Jorge MD Glucose Blood Strip Use to test blood glucose 1x daily. E11.9, insulin dependent 02/09/23 Ok Jorge MD insulin glargine (Basaglar KwikPen) 100 UNIT/ML Solution Pen-injector 20 Units by Subcutaneous route every morning. 07/18/23 Ok Jorge MD Insulin Pen Needle (PEN NEEDLES 31GX5/16 ) 31G X 8 MM Misc Use to inject insulin 4x daily. 11/10/22 Ok Jorge MD Insulin Syringe-Needle U-100 (TRUEPLUS INSULIN SYRINGE) 31G X 5/16 0.5 ML Misc USE 4 TIMES DAILY 12/19/19 Ok Jorge MD Lancets Misc 1 Lancet by Does not apply route daily. Test blood glucose 1x daily. E11.9, insulin dependent 12/30/22 Ok Jorge MD Lancets Misc Test four times daily. E11.9, insulin dependent 12/19/19 Ok Jorge MD levothyroxine (SYNTHROID) 50 MCG Tablet Take 1 Tablet by mouth every morning. 12/14/22 Oswaldo Serrano MD nortriptyline (PAMELOR) 10 MG Capsule Take 1 Capsule by mouth nightly. 06/07/23 Oswaldo Serrano MD NovoLOG FlexPen 100 UNIT/ML Solution Pen-injector INJECT 16-13-10 UNITS BEFORE EACH MEAL -- ISF OF 1:30 IF GREATER THAN 140MG/DL UP TO 70 UNITS PER DAY 07/18/23 Ok Jorge MD omeprazole (PriLOSEC) 20 MG CAPSULE DELAYED RELEASE TAKE 1 CAPSULE BY MOUTH DAILY 07/17/23 Oswaldo Serrano MD potassium chloride SA (KLORCON M) 20 MEQ Tablet Controlled Release Take 1 Tablet by mouth daily. 07/17/23 Oswaldo Serrano MD rivaroxaban (Xarelto) 20 MG Tablet Take 20 mg by mouth daily (with dinner). Take with food. Provider, MD Nica There are no discontinued medications. I have reviewed the home medication list with the patient and have reconciled discrepancies. The list is accurate to the best of my knowledge. Smoking Status: Social History Tobacco Use ??? Smoking status: Never ??? Smokeless tobacco: Never Vaping Use ??? Vaping Use: Never used Substance Use Topics ??? Alcohol use: No ??? Drug use: No Smoking Cessation Counseling Given: no Health Care Maintenance: Health Maintenance Due Topic Date Due ??? Diabetes: Foot Exam Never done ??? Zoster Immunization (1 of 2) Never done ??? Influenza Immunization (1) 06/10/2023 ??? SARS-COV-2 Immunization ( season) 2023 Orders Pended: no The following BPA's have been addressed with the patient today: Flu * Oswaldo Serrano MD - 08/09/2023 2:45 PM CDT CHIEF COMPLAINT: Fatigue. SUBJECTIVE: Patient is here today to discuss her fatigue. She has been feeling tired lately. Daughter would like her urine checked. She is having urinary frequency. She denies any burning when she urinates or fever. She is on Synthroid. She is due to have a TSH checked. She is also due to her B12 level checked. Her B12 was a little high. I have reviewed all the systems. They are negative except as mentioned in HPI. OBJECTIVE: Vital Signs: Blood pressure 108/72, pulse 99, temperature 97.3, respirations 16, weight 287. General: Patient is talkative, cooperative, and appropriately dressed. Chest: Clear to auscultation bilaterally no wheezing Heart: S1, S2. No murmurs. Neck: No carotid bruits auscultated. ASSESSMENT/PLAN: 1. Fatigue. I will get a CBC on her. 2. Elevated B12. I will check a level. 3. Hypothyroidism. I will recheck a TSH. She is to continue current dose of Synthroid. 4. Urinary frequency. Will get a UA and culture today and told her to call me at the end of the week to discuss the urine results. 5. This patient has follow up in 3 months. IJN: [id number] documented in this encounter Plan of Treatment Upcoming Encounters Date Type Department Care Team (Late st Contact Info) Description 10/08/2024 2:15 PM DRIVER Office Visit [facility] UROLOGY #2 [place] [address] Orlin Urbina, WEALTH MANAGEMENT CONSULTANT, HOSPICE FELLOW #[address] [place] [address] 10/18/2024 2:15 PM DRIVER Appointment [facility] Mammography [address] [place] [address] Oswaldo Serrano MD #2 [facility] [address] [place] [address] Discharge Disposition: Discharged to home or Selfcare 11/29/2024 2:30 PM DRIVER Office Visit [facility] - Family Medicine [facility] #2 [place] [address] Oswaldo Serrano MD #2 [facility] [address] [place] [address] 11/30/2024 3:00 PM DRIVER Office Visit [facility] Medical [facility] - Endocrinology [facility] #2 [place] [address] Ok Jorge MD #[address] [place] [address] documented as of this encounter Results * VITAMIN B12 (08/09/2023 3:46 PM CDT) [facility] VITAMIN B12 792 213 - 816 pg/mL 08/09/2023 5:30 PM CDT [facility] Blood Venipuncture / Unknown 08/09/2023 3:46 PM CDT 08/09/2023 4:39 PM CDT us Oswaldo Serrano MD CHEMISTRY ORDERABLES Final Result [facility] #1 [place] [address] * (ABNORMAL) THYROID STIMULATING HORMONE (TSH) (08/09/2023 3:46 PM CDT) [facility] TSH 5.324(H) 0.300 - 5.000 mIU/L 08/09/2023 5:25 PM CDT [facility] Blood Venipuncture / Unknown 08/09/2023 3:46 PM CDT 08/09/2023 4:39 PM CDT Oswaldo Serrano MD CHEMISTRY ORDERABLES Final Result [facility] #1 [place] [address] * CULTURE, URINE (08/09/2023 3:46 PM CDT) Pathologist [facility] CULTURE RESULTS MIXED GROWTH OF 3 OR MORE ORGANISMS, PROBABLE COLLECTION CONTAMINATION, SUGGEST REPEAT URINE CULTURE. 08/11/2023 11:19 AM CDT [facility] Culture URINE SPECIMEN COLLECTION, CLEAN CATCH / Unknown Non-Phlebotomy Collection / Unknown 08/09/2023 3:46 PM CDT 08/09/2023 4:39 PM CDT Oswaldo Serrano MD MICROBIOLOGY - GENERAL ORDE RABLES Final Result Performing Organization Address City/[facility] Co de Phone Number [facility] [address] [place] [address], * (ABNORMAL) URINALYSIS REFLEX IF INDICATED BY ABNORMAL RESULTS (08/09/2023 3:46 PM CDT) SPECIFIC GRAVITY 1.010 1.003 - 1.030 08/09/2023 5:23 PM CDT [facility] URINE PH 5.0 5.0 - 9.0 08/09/2023 5:23 PM CDT [facility] WBC ESTERASE Negative Negative 08/09/2023 5:23 PM CDT [facility] NITRITE Negative Negative 08/09/2023 5:23 PM CDT [facility] PROTEIN, RANDOM URINE 15 mg/dL(A) Negative 08/09/2023 5:23 PM CDT [facility] URINE GLUCOSE, QUAL 1000 mg/dL(A) Negative 08/09/2023 5:23 PM CDT [facility] URINE KETONES Negative Negative 08/09/2023 5:23 PM CDT [facility] UROBILINOGEN Normal Normal mg/dL 08/09/2023 5:23 PM CDT [facility] URINE BLOOD 25 /uL(A) Negative jolene/ul 08/09/2023 5:23 PM CDT [facility] URINALYSIS COLOR Yellow 08/09/20 5:23 PM CDT [facility] URINALYSIS CLARITY Clear 08/09/2023 5:23 PM CDT [facility] WBC (Urine) 6-10(A) Negative, 0-5 /hpf 08/09/2023 5:23 PM CDT [facility] URINE RBC'S 0-2 Negative, 0-2 /hpf 08/09/2023 5:23 PM CDT [facility] EPITHELIAL CELLS Moderate amount /lpf 08/09/2023 5:23 PM CDT [facility] BACTERIA, URINE Negative Negative /hpf 08/09/2023 5:23 PM CDT [facility] Urine URINE SPECIMEN COLLECTION, CLEAN CATCH / Unknown Non-Phlebotomy Collection / Unknown 08/09/2023 3:46 PM CDT 08/09/2023 4:39 PM CDT Oswaldo Serrano MD URINE ORDERABLES Final Resu lt [facility] #[address] [place] [address] documented in this encounter Visit Diagnoses Diagnosis Urinary frequency- Primary Fatigue, unspecified type B12 deficiency Other B-complex deficiencies Hypothyroidism, unspecified type documented in this encounter Additional Health Concerns Assessment Noted Time PHQ-9 Depression Total Score: 0 08/09/20 2:56 PM CDT documented as of this encounter Care Teams Color Printer Operator Relationship Specialty Start Date End Date Oswaldo Serrano MD #2 [facility] [address] [place] [address] PCP - General Family Medicine 05/19/17 Angel Crowe DPM #2 [facility] [address] [place] [address] Consulting Physician Podiatry 06/16/17 Mora Fritz [place] Behavioral Health Navigator 06/15/18 Ok Jorge MD #2 [facility] [address] [place] [phone] Consulting Physician Endocrinology 05/12/22 Orlin Urbina APRN, HOSPICE FELLOW #[address] [place] [address] Nurse Practitioner Advanced Practice Nurse 11/09/22 documented as of this encounter
--- OUTSIDE RECORDS SUMMARY | 2024-10-07 00:22 | XMS_ITS | Encounter Summary ---
Author Organization [facility] Address [address] [place] [address] Phone Care Team Providers Care Prop Setter Name Role Phone Oswaldo Serrano MD Primary Care Provider [phone] Angel Crowe DPCiara Unavailable [phone] Mora Fritz Unavailable Unavailable Ok Jorge MD Unavailable Orlin Urbina APRN, WAREHOUSE SUPERVISOR 3RD SHIFT Unavailable [phone] Reason for Visit * Reason Comments Medication Refill Encounter Details Date Type Department Care Team (Late st Contact Info) Description 11/04/2023 Refill [facility] - [place] [address] [place] [address] Oswaldo Serrano MD #[address] [address] Medication Refill Social History Tobacco Use Types [...] Telephone Encounter - Mica Morales RN - 11/04/2023 12:05 PM CST Medication(s) refilled and signed per [facility] Chronic Medication Refill Standing Order for Pediatricand Adult Patients. Requested Prescriptions Pending Prescriptions Disp Refills ??? docusate sodium (COLACE) 100 MG Capsule [Pharmacy Med Name: DOCUSATE SOD 100MG CAPSULES] 60 Capsule 2 Sig: TAKE 1 CAPSULE BY MOUTH TWICE DAILY Laxatives Protocol Passed - 11/04/2023 5:53 AM Passed - Visit with relevant provider [...] Provider Dept 11/09/23 Appointment Oswaldo Serrano MD [facility] Showing future appointments within next 90 days and meeting all other requirements Passed - Up to date with colon cancer screening Health Maintenance CLINICIAN documented in this encounter Plan of Treatment Upcoming Encounters Date Type Department Care Team (Late st Contact Info) Description 10/08/2024 2:15 PM CARE CLINICIAN Office Visit [facility] UROLOGY #2 [place] [phone] Orlin Urbina APRN, WAREHOUSE SUPERVISOR 3RD SHIFT #2 [facility] [place] [address] 10/18/2024 2:15 PM CARE CLINICIAN Appointment [facility] Mammography 1 [place] [address] Oswaldo Serrano MD #[address] [address] Discharge Disposition: Discharged to home or Selfcare 11/29/2024 2:30 PM CARE CLINICIAN Office Visit [facility] - [place] #[address] [place] [address] Oswaldo Serrano MD #[address] [address] 11/30/2024 3:00 PM CARE CLINICIAN Office Visit [facility] - Endocrinology - [place] #[address] [place] [address] Ok Jorge MD #[address] [address] documented as of this encounter Visit Diagnoses Not on filedocumented in this encounter Additional Health Concerns Assessment Noted Time PHQ-9 Depression Total Score: 0 08/09/20 23 2:56 PM CDT documented as of this encounter Care Teams Prop Setter Relationship Specialty Start Date End Date Oswaldo Serrano MD #[address] [address] PCP - General Family Medicine 05/19/17 Angel Crowe DPM #2 [facility] [address] [place] [address] Consulting Physician Podiatry 06/16/17 Mora Fritz Behavioral Health Navigator 06/15/18 Ok Jorge MD #2 [facility] [address] [place] [address] Consulting Physician Endocrinology 05/12/22 Orlin Urbina APRN, WAREHOUSE SUPERVISOR 3RD SHIFT #2 [place] [address] Nurse Practitioner Advanced Practice Nurse 11/09/22 documented as of this encounter
--- OUTSIDE RECORDS SUMMARY | 2024-10-07 00:22 | XMS_ITS | Encounter Summary ---
Author Organization [facility] Address [address] [place] [address] Phone Care Team Providers Care Clinical Assistant Professor Name Role Phone Oswaldo Serrano MD Primary Care Provider [phone] Angel Crowe DPM Unavailable Mora Fritz Unavailable Unavailable Ok Jorge MD Unavailable Orlin Urbina APRN, NANOFABRICATION SPECIALIST Unavailable + [phone] Reason for Visit * Reason Onset Date Comments Medication Refill 01/18/2023 Encounter Details Date Type Department Care Team (Late st Contact Info) Description 01/18/2023 MyChart RX Renewal [facility] #2 [place] [address] Oswaldo Serrano MD #[address] [address] Medication Renewal Reviewed Social History Tobacco Use [...] suspected to have Coronavirus/COVID-19? No / Unsure 01/04/2023 2:30 PM CDT documented as of this encounter Miscellaneous Notes * Telephone Encounter - Mica Morales RN - 01/18/2023 4:45 PM CDT Medication(s) refilled and signed per [facility] Chronic Medication Refill Standing Order for Pediatricand Adult Patients. Requested Prescriptions Pending Prescriptions Disp Refills ??? potassium chloride SA (KLORCON M) 20 MEQ Tablet Controlled Release 90 Tablet 1 Sig: Take 1 Tablet by mouth daily. Potassium Supplement Protocol Passed - 01/18/2023 3:52 PM Passed - Normal serum potassium in past 12 months POTASSIUM Date Value Ref Range Status 01/21/2022 4.5 3.5 - 5.1 mmol/L Final Passed - Visit with relevant provider in past 12 months or upcoming 90 days Recent Visits Date Type Provider Dept 01/13/23 Telemedicine Oswaldo Serrano MD [facility] 10/14/22 Office Visit Oswaldo Serrano MD [facility] 08/26/22 Office Visit Connor Yuan APRN, [facility] 05/25/22 Office Visit Tom Quach MD [facility] Showing recent visits within past 365 days and meeting all other requirements Future Appointments Date Type Provider Dept 02/01/23 Appointment Oswaldo Serrano MD [facility] Showing future appointments within next 90 days and meeting all other requirements ??? omeprazole (PriLOSEC) 20 MG CAPSULE DELAYED RELEASE 90 Capsule 1 Sig: Take 1 Capsule by mouth daily. Proton Pump Inhibitors Protocol Passed - 01/18/2023 3:52 PM Passed - Visit with relevant provider in past 12 months or upcoming 90 days Recent Visits Date Type Provider Dept 01/13/23 Telemedicine Oswaldo Serrano MD [facility] 10/14/22 Office Visit Oswaldo Serrano MD [facility] 08/26/22 Office Visit Connor Yuan APRN, NANOFABRICATION SPECIALIST [facility] 05/25/22 Office Visit Tom Quach MD [facility] Showing recent visits within past 365 days and meeting all other requirements Future Appointments Date Type Provider Dept 02/01/23 Appointment Oswaldo Serrano MD [facility] Showing future appointments within next 90 days and meeting all other requirements documented in this encounter Plan of Treatment Upcoming Encounters Date Type Department Care Team (Late st Contact Info) Description 10/08/2024 2:15 PM ANALYTICAL TECH Office Visit [facility] #2 [place] [address] Orlin Urbina APRN, NANOFABRICATION SPECIALIST #2 [place] [address] 10/18/2024 2:15 PM ANALYTICAL TECH [facility]ointment [facility] 1 [place] [address] Oswaldo Serrano MD #[address] [address] Discharge Disposition: Discharged to home or Selfcare 11/29/2024 2:30 PM ANALYTICAL TECH Office Visit [facility] Family Medicine [facility] #2 [place] [address] Oswaldo Serrano MD #[address] [address] 11/30/2024 3:00 PM ANALYTICAL TECH Office Visit [facility] - [facility] #2 [place] [address] Ok Jorge MD #[address] [address] documented as of this encounter Visit Diagnoses Diagnosis Chronic congestive heart failure, unspecified heart failure type (HCC) documented in this encounter Additional Health Concerns Assessment Noted Time PHQ-9 Depression Total Score: 0 10/14/19 11:00 AM ANALYTICAL TECH documented as of this encounter Care Teams Clinical Assistant Professor Relationship Specialty Start Date End Date Oswaldo Serrano MD #[address] [address] PCP - General Family Medicine 05/19/17 Angel Crowe DPM #[address] [address] Consulting Physician Podiatry 06/16/17 Mora Fritz [place] Behavioral Health Navigator 06/15/18 Ok Jorge MD #[address] [address] Consulting Physician Endocrinology 05/12/22 Orlin Urbina APRN, NANOFABRICATION SPECIALIST #2 [place] [address] Nurse Practitioner Advanced Practice Nurse 11/09/22 documented as of this encounter
--- OUTSIDE RECORDS SUMMARY | 2024-10-07 00:22 | XMS_ITS | Encounter Summary ---
Author Organization [facility] Address [address] [place] [address] Phone Care Team Providers Care Giver Name Role Phone Oswaldo Serrano MD Primary Care Provider [phone] Angel Crowe DPM Unavailable Mora Fritz Unavailable Unavailable Ok Jorge MD Unavailable Orlin Urbina APRN, INSULATION BOARD BACK TENDER Unavailable [phone] Reason for Visit * Reason Onset Date Comments Medication Refill 07/15/2023 Encounter Details Date Type Department Care Team (Late st Contact Info) Description 07/15/2023 MyChart RX Renewal [facility] - [place] #2 [place] [address] Ok Jorge MD #[address] [address] Medication Renewal Reviewed Social History [...] Telephone Encounter - Ok Jorge MD - 07/18/2023 10:50 PM CDT Rx sent documented in this encounter Plan of Treatment Upcoming Encounters Date Type Department Care Team (Late st Contact Info) Description 10/08/2024 2:15 PM DETAIL DRAFTER Office Visit [facility] #2 [place] [phone] Orlin Urbina, FINAL FINISHER FORGING DIES, INSULATION BOARD BACK TENDER #2 [place] [address] 10/18/2024 2:15 PM DETAIL DRAFTER Appointment [facility] Mammography 1 [place] [address] Oswaldo Serrano MD #[address] [address] Discharge Disposition: Discharged to home or Selfcare 11/29/2024 2:30 PM DETAIL DRAFTER Office Visit [facility] - Family Medicine [facility] #2 [facility] [address] Oswaldo Serrano MD #[address] [place] [address] 11/30/2024 3:00 PM DETAIL DRAFTER Office Visit [facility] Endocrinology [facility] #2 [facility] [place] [address] Ok Jorge MD #[address] [place] [address] documented as of this encounter Visit Diagnoses Not on filedocumented in this encounter Additional Health Concerns Assessment Noted Time PHQ-9 Depression Total Score: 0 10/14/19 23 11:00 AM DETAIL DRAFTER documented as of this encounter Care Teams Giver Relationship Specialty Start Date End Date Oswaldo Serrano MD #[address] [address] PCP - General Family Medicine 05/19/17 Angel Crowe DPM #[address] [address] Consulting Physician Podiatry 06/16/17 Mora Fritz [place] Behavioral Health Navigator 06/15/18 Ok Jorge MD #[address] [address] Consulting Physician Endocrinology 05/12/22 Orlin Urbina APRN, INSULATION BOARD BACK TENDER #2 [place] [address] Nurse Practitioner Advanced Practice Nurse 1/31/23 documented as of this encounter
--- OUTSIDE RECORDS SUMMARY | 2024-10-07 00:22 | XMS_ITS | Encounter Summary ---
Author Organization [employer] Care Team Providers Care Lasting Machine Operator Bed Name Role Phone Oswaldo Serrano MD Primary Care Provider [phone] Angel Crowe DPM Unavailable [phone] Mora Fritz Unavailable Unavailable Ok Jorge MD Unavailable Orlin Urbina APRN, SHIP'S SURVEYOR Unavailable + [phone] Encounter Details Date Type Department Care Team (Latest Contact Info) Description 09/13/2023 Travel Social History Tobacco Use Types Packs/Day [...] st Contact Info) Description 10/08/2024 2:15 PM CENTRAL OFFICE OPERATOR Office Visit [facility] #2 [facility] [place] [phone] Orlin Urbina APRN, SHIP'S SURVEYOR #2 [place] [address] 10/18/2024 2:15 PM CENTRAL OFFICE OPERATOR [facility] 1 [place] [address] Oswaldo Serrano MD #[address] [address] Discharge Disposition: Discharged to home or Selfcare 11/29/2024 2:30 PM CENTRAL OFFICE OPERATOR Office Visit [facility] - [place] #2 [place] [address] Oswaldo Serrano MD #[address] [address] 11/30/2024 3:00 PM CENTRAL OFFICE OPERATOR Office Visit [facility] - Endocr[facility]ology - [place] #2 [place] [address] Ok Jorge MD #2 [facility] [address] [place] [address] documented as of this encounter Visit Diagnoses Not on filedocumented in this encounter Additional Health Concerns Assessment Noted Time PHQ-9 Depression Total Score: 0 08/09/20 23 2:56 PM CDT documented as of this encounter Care Teams Lasting Machine Operator Bed Relationship Specialty Start Date End Date Oswaldo Serrano MD #[address] [address] PCP - General Family Medicine 05/19/17 Angel Crowe DPM #[address] [address] Consulting Physician Podiatry 06/16/17 Mora Fritz [place] Behavioral Health Navigator 06/15/18 Ok Jorge MD #[address] [address] Consulting Physician Endocrinology 05/12/22 Orlin Urbina APRN, SHIP'S SURVEYOR #2 [place] [address] Nurse Practitioner Advanced Practice Nurse 11/09/22 documented as of this encounter
--- OUTSIDE RECORDS SUMMARY | 2024-10-07 00:22 | XMS_ITS | Encounter Summary ---
Author Organization [facility] Address [address] [place] [address] Phone Care Team Providers Care Ethnology Professor Name Role Phone Oswaldo Serrano MD Primary Care Provider [phone] Angel Crowe DPM Unavailable [phone] Mora Fritz Unavailable Unavailable Ok Jorge MD Unavailable Orlin Urbina APRN, SAUSAGE GRINDER Unavailable + [phone] Reason for Referral * Consult, Test & Initiate Treatment (Less Than 4 Weeks) - Canceled Specialty Diagnoses / Procedures Referred By Contac t Referred To Contact General Surgery Diagnoses Skin lesion of back [facility]aldo Serrano MD [facility] [address] [place] [address] Phone: tel: fax: [facility] - General Surgery - [place] [address] [place] [facility] [address] [place] [address] Phone: tel: fax: Referral ID Status Reason Start Date Expiration Date V isits Requested Visits Authorized [id number] Canceled 02/01/2023 1 1 Scheduling Instructions Loretta is being referred to Dr. Solares for skin lesion on back. Please contact patient, significant other and father for scheduling questions or concerns. Reason for Visit * Reason Comments Follow-up 3 month f/u Encounter Details Date Type Department Care Team (Late st Contact Info) Description 02/01/2023 3:15 PM CDT Office Visit [facility] - Family Medicine [facility] #2 [place] [address] Oswaldo Serrano MD #[address] [address] Skin lesion of back (Primary Dx); Depression, unspecified depression type; Yeast infection; Noncompliance Discharge Disposition: Discharged to home or Selfcare [...] Sign Reading Time Taken Comments Blood Pressure 128/74 02/01/2023 3:37 PM CDT for earm Pulse 83 02/01/2023 3:37 PM CDT Temperature 36.6 ??C (97.9 ??F) 02/01/2023 3:37 PM CD T Respiratory Rate 18 02/01/2023 3:37 PM CDT Oxygen Saturation 94% 02/01/2023 3:37 PM CDT Inhaled Oxygen Concentration - - Weight 128.9 kg (284 lb 1.6 oz) 02/01/2023 3:37 PM CDT Height 165.1 cm (5' 5 ) 02/01/2023 3:37 PM CDT Body Mass Index 47.28 02/01/2023 3:37 PM CDT documented in this encounter Patient Instructions * Patient Instructions* Oswaldo Serrano MD - 02/01/2023 3:15 PM CDT See the General Surgeon for the bump on your back. Take Diflucan for the yeast infection. See all other doctors as scheduled. Fast 10 hours for labs. Take Flonase nasal spray. documented in this encounter Progress Notes * Rama Isabel - 02/01/2023 3:15 PM CDT Loretta Yumiko [place], 62 y.o., female is here for Follow-up (3 month f/u) Medication Refills: Patient reports/denies need for medication refills. Orders Pended: no Requested Prescriptions No prescriptions requested or ordered in this encounter Home Medications Medication Sig Start Date End Date Taking? Authorizing Provider albuterol 108 (90 Base) MCG/ACT Aerosol Solution take 1-2 Puffs by inhalation every 4 hours as needed for Cough. 10/07/21 Yes Oswaldo Serrano MD Blood Glucose Monitoring Suppl Device Test blood glucose 1x daily, E11.9, insulin dependent 12/30/22Yes Ok Jorge MD Blood Glucose Monitoring Suppl Device Test blood glucose 4 times daily. E11.9, insulin dependent 12/19/19 Yes Ok Jorge MD carvedilol (COREG) 25 MG Tablet 25 mg 2 times daily. 05/06/17 Yes Nica Muniz MD Continuous Blood Gluc Sensor (Dexcom G6 Sensor) [facility] 10/05/22 Yes Nica Muniz MD Continuous Blood Gluc Transmit (Dexcom G6 Transmitter) [facility] 12/03/21 Yes Nica Muniz MD Cyanocobalamin (B-12) [...] 1 Capsule by mouth 2 times daily. 11/26/22 Yes Oswaldo Serrano MD Entresto 24-26 MG Tablet 09/11/21 Yes Nica Muniz MD escitalopram (LEXAPRO) 10 MG Tablet Take 1 Tablet by mouth daily. 12/14/22 Yes Oswaldo Serrano MD furosemide (LASIX) 40 MG Tablet Take 1 Tablet by mouth daily. 11/02/22 Yes Connor Yuan APRN, CNP Glucose Blood (True Metrix Blood Glucose Test) Strip TEST USING ONE STRIP FOUR TIMES DAILY E11.9, insulin dependent 12/24/22 Yes Ok Jorge MD Glucose Blood Strip Use to test blood glucose 1x daily. E11.9, insulin dependent 12/30/22 Yes Ok Jorge MD insulin glargine (Basaglar KwikPen) 100 UNIT/ML Solution Pen-injector 17 Units by Subcutaneous route every morning. 12/27/22 Yes Ok Jorge MD Insulin Pen Needle (PEN NEEDLES 31GX5/16 ) 31G X [address] [facility] Use to inject insulin 4x daily. 11/10/22 Yes Ok Jorge MD Insulin Syringe-Needle U-100 [...] 12/19/19 Yes Ok Jorge MD levothyroxine (SYNTHROID) 50 MCG Tablet Take 1 Tablet by mouth every morning. 12/14/22 Yes Oswaldo Serrano MD nortriptyline (PAMELOR) 10 MG Capsule Take 1 Capsule by mouth nightly. 12/14/22 Yes Oswaldo Serrano MD NovoLOG FlexPen 100 UNIT/ML Solution Pen-injector INJECT 16 UNITS BEFORE EACH MEAL -- ISF OF 1:30 IF GREATER THAN 140MG/DL UP TO 70 UNITS PER DAY 11/10/22 Yes Ok Jorge MD omeprazole (PriLOSEC) 20 MG CAPSULE DELAYED RELEASE Take 1 Capsule by mouth daily. 01/18/23 Yes Oswaldo Serrano MD potassium chloride SA (KLORCON M) 20 MEQ Tablet Controlled Release Take 1 Tablet by mouth daily. 01/18/23 Yes Oswaldo Serrano MD rivaroxaban (Xarelto) 20 MG Tablet Take 20 mg by mouth daily (with dinner). Take with food. Yes ProviderNica MD trospium (SANCTURA) 20 MG Tablet Take 1 Tablet by mouth in the morning and at bedtime. 01/04/23 Yes Orlin Urbina, OFFICE CLINICIAN, SAUSAGE GRINDER There are no discontinued medications. I [...] Immunization (1 of 2) Never done ??? Diabetes: Eye Exam 07/18/2019 ??? SARS-COV-2 Immunization (3 - Booster for Pfizer series) 03/15/2021 Orders Pended: no The following BPA's have been addressed with the patient today: BMI * Oswaldo Serrano MD - 02/01/2023 3:15 PM CDT CHIEF COMPLAINT: Skin lesion. SUBJECTIVE: Patient is here today complaining about the skin lesion in her left scapular area. She says it is painful to palpation. Her depression is stable on Lexapro. She thinks she may have a yeast infection. She was prescribed, I believe, some antibiotics at one time, and now she is having some pelvic discomfort. She has not had her overdue fasting labs done that were ordered back in October. She is due to have her cholesterol and CMP checked. She is diabetic, and it does not look like she is on any statin therapy. I have reviewed all the systems. They are negative except as mentioned in HPI. OBJECTIVE: Vital Signs: Blood pressure 128/74, pulse 83, respirations 18, weight 284. General: Patient is talkative, cooperative, and appropriately dressed. Chest: Clear to auscultation bilaterally. No wheezing. Heart: S1, S2. No murmurs. Neck: No carotid bruits auscultated. Psychiatric: The patient displays appropriate affect and speech. She is at her baseline. Skin: She does have a raised, round, dome-shaped lesion on her left scapular area with a little bit of hyperpigmentation in the middle. ASSESSMENT/PLAN: 1. Skin lesion. I will refer her to Dr. Solares/general surgeon, to see if this should be excised. 2. Depression, stable on Lexapro. She is to continue this. 3. Yeast infection. Give her Diflucan. 4. Noncompliance. I encouraged her to get her fasting labs done, which are overdue. 5. This patient is to follow up in 3 months. IJN: [id number] documented in this encounter Plan of Treatment Upcoming Encounters Date Type Department Care Team (Late st Contact Info) Description 10/08/2024 2:15 PM FIRE AND SAFETY HELPER Office Visit [facility] UR[facility] #2 [place] [address] Orlin Urbina, OFFICE CLINICIAN, SAUSAGE GRINDER #2 [place] [address] 10/18/2024 2:15 PM FIRE AND SAFETY HELPER [facility] 1 [place] [address] Oswaldo Serrano MD #[address] [address] Discharge Disposition: Discharged to home or Selfcare 11/29/2024 2:30 PM FIRE AND SAFETY HELPER Office Visit [facility] Family Medicine - [place] #2 [place] [address] Oswaldo Serrano MD #[address] [address] 11/30/2024 3:00 PM FIRE AND SAFETY HELPER Office Visit [facility] - Endocrinology - [place] #2 [place] [address] Ok Jorge MD #[address] [phone] Scheduled Referrals Name Type Priority Associated Diagnoses Order Schedule GEN SURGICAL REFERRAL Outpatient Referral Less Than 4 weeks Skin lesion of back Expected: 02/01/2023 (Approximate), Expires: 02/02/2024 documented as of this encounter Visit Diagnoses Diagnosis Skin lesion of back- Primary Unspecified disorder of skin and subcutaneous tissue Depression, unspecified depression type Yeast infection Other and unspecified mycoses Noncompliance Personal history of noncompliance with medical treatment, presenting hazards to health documented in this encounter Additional Health Concerns Assessment Noted Time PHQ-9 Depression Total Score: 0 10/14/19 23 11:00 AM FIRE AND SAFETY HELPER documented as of this encounter Care Teams Ethnology Professor Relationship Specialty Start Date End Date Oswaldo Serrano MD #[address] [facility] [address] [place] [address] PCP - General Family Medicine 05/19/17 Angel Crowe DPM #[address] [facility] [address] [place] [address] Consulting Physician Podiatry 06/16/17 Mora Fritz [place] Behavioral Health Navigator 06/15/18 Ok Jorge MD #[address] [facility] [address] [place] [address] Consulting Physician Endocrinology 05/12/22 Orlin Urbina APRN, SAUSAGE GRINDER #2 [place] [address] Nurse Practitioner Advanced Practice Nurse 11/09/22 documented as of this encounter
--- OUTSIDE RECORDS SUMMARY | 2024-10-07 00:22 | XMS_ITS | Encounter Summary ---
Author Organization [facility] Address [address] [place] [address] Phone Care Team Providers Care Trailer Mechanic Name Role Phone Oswaldo Serrano MD Primary Care Provider [phone] Angel Crowe DPM Unavailable [phone] Mora Fritz Unavailable Unavailable Ok Jorge MD Unavailable Orlin Urbina APRN, BLOCK TRADER Unavailable + [phone] Reason for Visit * Reason Onset Date Comments Medication Refill 02/08/2023 Encounter Details Date Type Department Care Team (Late st Contact Info) Description 02/08/2023 MyChart RX Renewal [facility] - Endocrinology - [place] #2 [place] [address] Ok Jorge MD #[address] [address] Medication Renewal Reviewed Social [...] encounter Miscellaneous Notes * Telephone Encounter - Ynes Zuniga RN - 02/09/2023 10:05 AM CDT Requested Prescriptions Pending Prescriptions Disp Refills ??? Glucose Blood Strip 100 Strip 3 Sig: Use to test blood glucose 1x daily. E11.9, insulin dependent Next appt: 04/07/2023 documented in this encounter Plan of Treatment Upcoming Encounters Date Type Department Care Team (Late st Contact Info) Description 10/08/2024 2:15 PM SUPERVISOR SHIPPING Office Visit [facility] #2 [place] [address] Orlin Urbina, STORE TEAM MEMBER, BLOCK TRADER #2 [place] [address] 10/18/2024 2:15 PM SUPERVISOR SHIPPING Appointment [facility] Mammography 1 [place] [phone] Oswaldo Serrano MD #[address] [address] Discharge Disposition: Discharged to home or Selfcare 11/29/2024 2:30 PM SUPERVISOR SHIPPING Office Visit [facility] Family Medicine [facility] #2 [place] [address] Oswaldo Serrano MD #[address] [address] 11/30/2024 3:00 PM SUPERVISOR SHIPPING Office Visit [facility] Endocrinology [facility] #2 [place] [address] Ok Jorge MD #[address] [address] documented as of this encounter Visit Diagnoses Not on filedocumented in this encounter Additional Health Concerns Assessment Noted Time PHQ-9 Depression Total Score: 0 10/14/19 23 11:00 AM SUPERVISOR SHIPPING documented as of this encounter Care Teams Trailer Mechanic Relationship Specialty Start Date End Date Oswaldo Serrano MD #[address] [address] PCP - General Family Medicine 05/19/17 Angel Crowe DPM #[address] [address] Consulting Physician Podiatry 06/16/17 Mora Fritz [place] Behavioral Health Navigator 06/15/18 Ok Jorge MD #[address] [address] Consulting Physician Endocrinology 05/12/22 Orlin Urbina, STORE TEAM MEMBER, BLOCK TRADER #2 [place] [address] Nurse Practitioner Advanced Practice Nurse 11/09/22 documented as of this encounter
--- OUTSIDE RECORDS SUMMARY | 2024-10-07 00:22 | XMS_ITS | Encounter Summary ---
Author Organization [facility] Address [address] [place] [address] Phone Care Team Providers Care Powder Expert Name Role Phone Oswaldo Serrano MD Primary Care Provider [phone] Angel Crowe DPM Unavailable [phone] Mora Fritz Unavailable Unavailable Ok Jorge MD Unavailable Orlin Urbina APRN, WIENER PACKER Unavailable [phone] Reason for Referral * Consult, Test & Initiate Treatment (Less Than 4 Weeks) - Closed Specialty Diagnoses / Procedures Referred By Contac t Referred To Contact Urology Diagnoses Hematuria, unspecified type Oswaldo Serrano MD [address] [address] Phone: tel: fax: [facility] [address] [place] [address] Phone: tel: fax: Referral ID Status Reason Start Date Expiration Date Visits Re quested Visits Authorized [id number] Closed 07/18/2023 1 1 Scheduling Instructions Loretta is being referred for hematuria. I have ordered a CT urogram. Please contact patient for scheduling questions or concerns. * Radiology Services (Less Than 2 Weeks) - Closed Specialty Diagnoses / Procedures Referred By Contac t Referred To Contact Radiology Diagnoses Hematuria, unspecified type Procedures CT UROGRAPHY WO/W CONTRAST Oswaldo Serrano MD #[address] [address] Phone: tel: fax: Referral ID Status Reason Start Date Expiration Date Visits Re quested Visits Authorized [id number] Closed 07/18/2023 1 1 Encounter Details Date Type Department Care Team (Late st Contact Info) Description 07/18/2023 Telephone [facility] - [facility] Medicine [facility] #2 [place] [address] Oswaldo Serrano MD #[address] [address] Social History Tobacco Use Types Packs/Day Years [...] Telephone Encounter - Oswaldo Serrano MD - 07/20/2023 1:03 PM CDT DONE. documented in this encounter Plan of Treatment Upcoming Encounters Date Type Department Care Team (Late st Contact Info) Description 10/08/2024 2:15 PM BUSINESS LOAN PROCESSOR Office Visit [facility] #2 [place] [phone] Orlin Urbina APRN, WIENER PACKER #2 [place] [address] 10/18/2024 2:15 PM BUSINESS LOAN PROCESSOR [facility] [address] [place] [phone] Oswaldo Serrano MD #[address] [address] Discharge Disposition: Discharged to home or Selfcare 11/29/2024 2:30 PM BUSINESS LOAN PROCESSOR [facility] #2 [place] [address] Oswaldo Serrano MD #[address] [address] 11/30/2024 3:00 PM BUSINESS LOAN PROCESSOR Office Visit [facility] - End[facility] - [place] #2 [place] [phone] Ok Jorge MD #[address] [address] Scheduled Referrals Name Type Priority Associated Diagnoses Order Schedule UROLOGY REFERRAL Outpatient Referral Less Than 4 weeks Hematuria, unspecified type Expected: 07/18/2023 (Approximate), Expires: 07/18/2024 documented as of this encounter Results * CT UROGRAPHY WO/W CONTRAST (08/03/2023 2:40 PM CDT) Anatomical Region Laterality Modality , Abdomen N/A Computed Tomogra phy 08/06/2023 10:0 6 AM CDT Addenda Addendum by Eric Aguilar MD on 08/06/2023 10:14 AM CDT ADDENDUM REPORT: ADDENDUM: This addendum report supersedes the original report dated 08/06/2023 As mentioned in the findings section of the report, there is a tiny bubble of gas in the urinary bladder. ??Uncertain etiology. ?? Recommend correlation for history of recent instrumentation or signs of infection. END OF ADDENDUM REPORT EXAM DESCRIPTION: ?? CT UROGRAPHY WO/W CONTRAST REASON FOR STUDY: ?? C/o overactive bladder, micro hematuria and recurrent UTI x one month ? TECHNIQUE: Precontrast images of the abdomen. ??Abdomen and pelvis images with intravenous and ?? without ??oral contrast using helical scanning technique with dynamic intravenous contrast injection. Corticomedullary, nephrographic, excretory phase images were acquired. Reconstructed coronal and sagittal MPR images reviewed. All images stored on PACS. ?? Automated exposure control was used as a dose optimization technique for this examination. CONTRAST TYPE/DOSE: ?? 100mL of IOPAMIDOL 76 % IV SOLN ??injected via ?? Intravenous COMPARISON: ?? CT abdomen pelvis 07/02/2021 REFERENCE: Per ACR white paper recommendations, unless otherwise specified no follow-up imaging is recommended for incidental renal and adrenal lesions per consensus recommendations based on imaging criteria. Further lab evaluation could be pursued based on clinical findings. FINDINGS: URINARY TRACT: KIDNEYS: ?? In the anterior portion of the left kidney there is a subcentimeter low-attenuation lesion (6 mm) which is too small to characterize and is of doubtful clinical significance. ??Right kidney shows no lesions.. ??No calculi. Normal renal collecting systems. ?? URETERS AND BLADDER: ?? No hydroureter. No masses or mucosal abnormalities within the ureters. ??The urinary bladder wall is not thickened. ??There is a tiny bubble of gas within the urinary bladder. ??On the delayed phase, the contrast only fills the dependent portion of the urinary bladder. ??The anterior portion of the urinary bladder remains unopacified as the contrast has not reached this portion yet. ABDOMEN/PELVIS: LOWER CHEST: ?? There is subsegmental atelectasis in the lung bases. ?? Heart size is mildly enlarged. ??There is a partially imaged ICD. ?? Trace pericardial effusion. ??Small hiatal hernia. LIVER: ?? Normal size. ??No identified cystic or solid masses. GALLBLADDER: ?? Surgically absent BILE DUCTS: ?? No intrahepatic or extrahepatic ductal dilatation. SPLEEN: ?? Normal size. ??No focal lesions. PANCREAS: ?? No identified cystic or solid masses. No significant calcifications. No adjacent inflammation or peripancreatic fluid collections. Pancreatic duct not dilated. ADRENALS: ?? Normal. GI: Small hiatal hernia. ??Stomach is decompressed. ?? No dilated bowel loops. No obvious wall thickening. ??The appendix is not definitively visualized.. ??There is colonic diverticulosis without diverticulitis. ??There is a moderate amount of stool throughout the colon.. PERITONEUM: ?? No ascites or free air. RETROPERITONEUM: ?? No mass or adenopathy. REPRODUCTIVE: ?? Uterus in-situ. VASCULATURE: ??No abdominal aortic aneurysm. ?? Small amount of calcified atherosclerotic plaque in the aorta and iliac vessels. MUSCULOSKELETAL: ?? There is no suspicious osseous lesion. OTHER: ?? Tiny fat containing umbilical hernia. IMPRESSION: No suspicious findings on CT IVP/Urography. ??No acute abnormalities. Small hiatal hernia Colonic diverticulosis without diverticulitis Cardiomegaly THIS IS AN ELECTRONICALLY VERIFIED FINAL REPORT 08/06/2023 10:06 AM - Electronically signed by ??Eric Aguilar M.D. AM: AM D: ??08/06/2023 10:06 AM T: ??08/06/2023 10:06 AM Report ID: [id number] Reading Location: ??[id number] THIS IS AN ELECTRONICALLY VERIFIED FINAL REPORT 08/06/2023 10:12 AM ??Addendum Electronically signed by Eric Aguilar M.D. AM: AM D: ??08/06/2023 10:12 AM T: ??08/06/2023 10:12 AM Report ID: [id number] Reading Location: ??[id number] Impressions 08/06/2023 10:08 AM CDT IMPRESSION: No suspicious findings on CT IVP/Urography. ??No acute abnormalities. Small hiatal hernia Colonic diverticulosis without diverticulitis Cardiomegaly Narrative 08/06/2023 10:08 AM CDT EXAM DESCRIPTION: ?? CT UROGRAPHY WO/W CONTRAST REASON FOR STUDY: ?? C/o overactive bladder, micro hematuria and recurrent UTI x one month ? TECHNIQUE: Precontrast images of the abdomen. ??Abdomen and pelvis images with intravenous and ?? without ??oral contrast using helical scanning technique with dynamic intravenous contrast injection. Corticomedullary, nephrographic, excretory phase images were acquired. Reconstructed coronal and sagittal MPR images reviewed. All images stored on PACS. ?? Automated exposure control was used as a dose optimization technique for this examination. CONTRAST TYPE/DOSE: ?? 100mL of IOPAMIDOL 76 % IV SOLN ??injected via ?? Intravenous COMPARISON: ?? CT abdomen pelvis 07/02/2021 REFERENCE: Per ACR white paper recommendations, unless otherwise specified no follow-up imaging is recommended for incidental renal and adrenal lesions per consensus recommendations based on imaging criteria. Further lab evaluation could be pursued based on clinical findings. FINDINGS: URINARY TRACT: KIDNEYS: ?? In the anterior portion of the left kidney there is a subcentimeter low-attenuation lesion (6 mm) which is too small to characterize and is of doubtful clinical significance. ??Right kidney shows no lesions.. ??No calculi. Normal renal collecting systems. ?? URETERS AND BLADDER: ?? No hydroureter. No masses or mucosal abnormalities within the ureters. ??The urinary bladder wall is not thickened. ??There is a tiny bubble of gas within the urinary bladder. ??On the delayed phase, the contrast only fills the dependent portion of the urinary bladder. ??The anterior portion of the urinary bladder remains unopacified as the contrast has not reached this portion yet. ABDOMEN/PELVIS: LOWER CHEST: ?? There is subsegmental atelectasis in the lung bases. ?? Heart size is mildly enlarged. ??There is a partially imaged ICD. ?? Trace pericardial effusion. ??Small hiatal hernia. LIVER: ?? Normal size. ??No identified cystic or solid masses. GALLBLADDER: ?? Surgically absent BILE DUCTS: ?? No intrahepatic or extrahepatic ductal dilatation. SPLEEN: ?? Normal size. ??No focal lesions. PANCREAS: ?? No identified cystic or solid masses. No significant calcifications. No adjacent inflammation or peripancreatic fluid collections. Pancreatic duct not dilated. ADRENALS: ?? Normal. GI: Small hiatal hernia. ??Stomach is decompressed. ?? No dilated bowel loops. No obvious wall thickening. ??The appendix is not definitively visualized.. ??There is colonic diverticulosis without diverticulitis. ??There is a moderate amount of stool throughout the colon.. PERITONEUM: ?? No ascites or free air. RETROPERITONEUM: ?? No mass or adenopathy. REPRODUCTIVE: ?? Uterus in-situ. VASCULATURE: ??No abdominal aortic aneurysm. ?? Small amount of calcified atherosclerotic plaque in the aorta and iliac vessels. MUSCULOSKELETAL: ?? There is no suspicious osseous lesion. OTHER: ?? Tiny fat containing umbilical hernia. THIS IS AN ELECTRONICALLY VERIFIED FINAL REPORT 08/06/2023 10:06 AM - Electronically signed by ??Eric Aguilar M.D. AM: AM D: ??08/06/2023 10:06 AM T: ??08/06/2023 10:06 AM Report ID: [id number] Reading Location: ??[id number] Procedure Note Eric Aguilar MD - 08/06/2023 EXAM DESCRIPTION: CT UROGRAPHY WO/W CONTRAST REASON FOR STUDY: C/o overactive bladder, micro hematuria and recurrent UTI x one month TECHNIQUE: Precontrast images of the abdomen. Abdomen and pelvis images with intravenous and without oral contrast using helical scanning technique with dynamic intravenous contrast injection. Corticomedullary, nephrographic, excretory phase images were acquired. Reconstructed coronal and sagittal MPR images reviewed. All images stored on PACS. Automated exposure control was used as a dose optimization technique for this examination. CONTRAST TYPE/DOSE: 100mL of IOPAMIDOL 76 % IV SOLN injected via Intravenous COMPARISON: CT abdomen pelvis 07/02/2021 REFERENCE: Per ACR white paper recommendations, unless otherwise specified no follow-up imaging is recommended for incidental renal and adrenal lesions per consensus recommendations based on imaging criteria. Further lab evaluation could be pursued based on clinical findings. FINDINGS: URINARY TRACT: KIDNEYS: In the anterior portion of the left kidney there is a subcentimeter low-attenuation lesion (6 mm) which is too small to characterize and is of doubtful clinical significance. Right kidney shows no lesions.. No calculi. Normal renal collecting systems. URETERS AND BLADDER: No hydroureter. No masses or mucosal abnormalities within the ureters. The urinary bladder wall is not thickened. There is a tiny bubble of gas within the urinary bladder. On the delayed phase, the contrast only fills the dependent portion of the urinary bladder. The anterior portion of the urinary bladder remains unopacified as the contrast has not reached this portion yet. ABDOMEN/PELVIS: LOWER CHEST: There is subsegmental atelectasis in the lung bases. Heart size is mildly enlarged. There is a partially imaged ICD. Trace pericardial effusion. Small hiatal hernia. LIVER: Normal size. No identified cystic or solid masses. GALLBLADDER: Surgically absent BILE DUCTS: No intrahepatic or extrahepatic ductal dilatation. SPLEEN: Normal size. No focal lesions. PANCREAS: No identified cystic or solid masses. No significant calcifications. No adjacent inflammation or peripancreatic fluid collections. Pancreatic duct not dilated. ADRENALS: Normal. GI: Small hiatal hernia. Stomach is decompressed. No dilated bowel loops. No obvious wall thickening. The appendix is not definitively visualized.. There is colonic diverticulosis without diverticulitis. There is a moderate amount of stool throughout the colon.. PERITONEUM: No ascites or free air. RETROPERITONEUM: No mass or adenopathy. REPRODUCTIVE: Uterus in-situ. VASCULATURE: No abdominal aortic aneurysm. Small amount of calcified atherosclerotic plaque in the aorta and iliac vessels. MUSCULOSKELETAL: There is no suspicious osseous lesion. OTHER: Tiny fat containing umbilical hernia. THIS IS AN ELECTRONICALLY VERIFIED FINAL REPORT 08/06/2023 10:06 AM - Electronically signed by Eric Aguilar M.D. AM: AM Report ID: [id number] Reading Location: [id number] IMPRESSION: No suspicious findings on CT IVP/Urography. No acute abnormalities. Small hiatal hernia Colonic diverticulosis without diverticulitis Cardiomegaly Oswaldo Serrano MD IMG CT ORDERABLES Edited Re sult - Final documented in this encounter Visit Diagnoses Diagnosis Hematuria, unspecified type- Primary Hematuria, unspecified type documented in this encounter Additional Health Concerns Assessment Noted Time PHQ-9 Depression Total Score: 0 10/14/19 23 11:00 AM BUSINESS LOAN PROCESSOR documented as of this encounter Care Teams Powder Expert Relationship Specialty Start Date End Date Oswaldo Serrano MD #2 [facility] [address] [place] [address] PCP - General Family Medicine 05/19/17 Angel Crowe DPM #2 [facility] [address] [place] [address] Consulting Physician Podiatry 06/16/17 Mora Fritz MT Behavioral Health Navigator 06/15/18 Ok Jorge MD #2 [facility] [address] [place] [address] Consulting Physician Endocrinology 05/12/22 Orlin Urbina APRN, WIENER PACKER #2 [place] [address] Nurse Practitioner Advanced Practice Nurse 11/09/22 documented as of this encounter
--- OUTSIDE RECORDS SUMMARY | 2024-10-07 00:22 | XMS_ITS | Encounter Summary ---
Author Organization [facility] Address [address] [place] [address] Phone Care Team Providers Care Link Trainer Operator Name Role Phone Oswaldo Serrano MD Primary Care Provider [phone] Angel Crowe DPM Unavailable [phone] Mora Fritz Unavailable Unavailable Ok Jroge MD Unavailable Orlin Urbina APRN, NEONATAL ICU COORDINATOR Unavailable [phone] Reason for Visit * Reason Comments Follow-up 6wks Overactive Bladder Encounter Details Date Type Department Care Team (Late st Contact Info) Description 03/08/2023 3:00 PM CDT Office Visit [facility] #2 [place] [address] Orlin Urbina, INDUCTION HEAT TREATER, NEONATAL ICU COORDINATOR #2 [place] [address] Abnormal urinalysis (Primary Dx); Urinary incontinence, urge; OAB (overactive bladder) Discharge Disposition: Discharged to home or Selfcare [...] Sign Reading Time Taken Comments Blood Pressure 130/74 03/08/2023 3:17 PM CDT Pulse 77 03/08/2023 3:17 PM CDT Temperature 36.4 ??C (97.6 ??F) 03/08/2023 3:17 PM CD T Respiratory Rate 20 03/08/2023 3:17 PM CDT Oxygen Saturation 93% 03/08/2023 3:17 PM CDT Inhaled Oxygen Concentration - - Weight 128.8 kg (284 lb) 03/08/2023 3:17 PM CDT Height 165.1 cm (5' 5 ) 03/08/2023 3:17 PM CDT Body Mass Index 47.26 03/08/2023 3:17 PM CDT documented in this encounter Progress Notes * Orlin Urbina, INDUCTION HEAT TREATER, NEONATAL ICU COORDINATOR - 03/08/2023 3:00 PM CDT UROLOGY [facility] 2 [facility], [address] [place] [address] PHONE: FAX: Assessment & Plan Overactive bladder-more improvement with trospium then Myrbetriq. Symptoms bothersome enough to change therapy. Will avoid any further other anticholinergics due to Beers criteria and associated cognitive side effects. She is failed Myrbetriq. Sending prescription for Gemtesa 75 mg daily. Medication administration, use, side effects discussed. Patient to follow-up in 2 months for re-evaluation. Continue to limit bladder irritants. Trospium sent to cover time period needed for PA. Subjective: 11/09/2022 HPI: HPI: Loretta Penn presents [...] blood on urine dip. Negative for infection. The following portions of the patient's chart were reviewed in this encounter and updated as appropriate: Tobacco Allergies Meds ROS: Review of Systems Constitutional: Negative for chills and fever. Respiratory: Negative for cough and shortness of breath. Cardiovascular: Negative for chest pain and palpitations. Gastrointestinal: Negative for abdominal pain, diarrhea, nausea and vomiting. Genitourinary: Positive for frequency and urgency. Negative for dysuria, flank pain and hematuria. Incontinence Musculoskeletal: Negative for myalgias. Neurological: Negative for dizziness and weakness. Objective: Vital signs: BP 130/74 Pulse 77 Temp 97.6 ??F (36.4 ??C) (Temporal) Resp 20 Ht 5' 5 (1.651m) Wt 284 lb (128.8 kg) LMP (LMP Unknown) SpO2 93% BMI 47.26 kg/m?? There were no vitals filed for this visit. Physical Exam Constitutional: General: She is not in acute distress. Appearance: Normal appearance. She is obese. She is not ill-appearing. HENT: Head: Normocephalic. [...] refill takes less than 2 seconds. Neurological: General: No focal deficit present. Mental Status: She is alert and oriented to person, place, and time. Gait: Gait normal. Lab Results Component Value Date WBC 5.88 [...] orders placed or performed in visit on 01/04/23 CULTURE, URINE Specimen: Urine Clean Catch; Culture Result Value Ref Range Status CULTURE RESULTS Greater than 100,000 CFU/ML Klebsiella pneumoniae Final CULTURE RESULTS 75,000 CFU/ML Gram negative bacilli Final Comment: NO FURTHER WORKUP PERFORMED CULTURE RESULTS ALSO MIXED GROWTH OF DISTAL URETHRA CONTAMINANTS. Final Susceptibility Klebsiella pneumoniae - [facility] II Ampicillin/sulbactam Susceptible mcg/ml Cefazolin Susceptible mcg/ml Cefepime Susceptible mcg/ml Ceftriaxone Susceptible mcg/ml Gentamicin Susceptible mcg/ml Levofloxacin Susceptible mcg/ml Meropenem Susceptible mcg/ml Nitrofurantoin Intermediate mcg/ml Piperacillin/Tazobactam Susceptible mcg/ml Tobramycin Susceptible mcg/ml Trimeth/Sulfamethoxazole Susceptible mcg/ml Results for orders placed or performed in [...] Diagnoses and all orders for this visit: Abnormal urinalysis - POCT UA AUTOMATED W/O MICRO Urinary incontinence, urge - Vibegron (Gemtesa) 75 MG Tablet; Take 75 mg by mouth daily for 30 days. OAB (overactive bladder) - trospium (SANCTURA) 20 MG Tablet; Take 1 Tablet by mouth in the morning and at bedtime. - Vibegron (Gemtesa) 75 MG Tablet; Take 75 mg by mouth daily for 30 days. 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 Office Visit [facility] #2 [place] [address] Orlin Urbina APRN, CNP #2 [place] [address] 10/18/2024 2:15 PM 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 Appointment [facility] [address] [place] [address] Oswaldo Serrano MD #[address] [address] Discharge Disposition: Discharged to home or Selfcare 11/29/2024 2:30 PM 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 Office Visit [facility] - Family Medicine - [place] #2 [place] [address] Oswaldo Serrano MD #[address] [address] 11/30/2024 3:00 PM 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 Office Visit [facility] Endocrinology [facility] #2 [place] [address] Ok Jorge MD #[address] [address] documented as of this encounter Procedures Procedure Name Priority Date/Time Associated Diagnosis Comments POCT UA AUTOMATED W/O MICRO Routine 03/08/2023 3:30 PM CDT Abnormal urinalysis documented in this encounter Results * (ABNORMAL) POCT UA AUTOMATED W/O MICRO (03/08/2023 3:30 PM CDT) POC UA SPECIFIC GRAVITY 1.005 URINE PH 5.0 5.0 - 9.0 POC [...] 50 Alec/uL(A) Negative Alec/uL POC URINE COLOR Light yellow POC URINE CLARITY CLR w/Precip Urine 03/08/2023 3:30 PM CDT Orlin Urbina APRN, CNP POINT OF CARE TESTING (MANUAL) Final Result documented in this encounter Visit Diagnoses Diagnosis Abnormal urinalysis- Primary Other nonspecific finding on examination of urine Urinary incontinence, urge Urge incontinence OAB (overactive bladder) Hypertonicity of bladder documented in this encounter Additional Health Concerns Assessment Noted Time PHQ-9 Depression Total Score: 0 10/14/19 11:00 AM [employer]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 documented as of this encounter Care Teams Link Trainer Operator Relationship Specialty Start Date End Date Oswaldo Serrano MD #2 [facility] [address] [place] [address] PCP - General Family Medicine 05/19/17 Angel Crowe DPM #2 [facility] [address] [place] [address] Consulting Physician Podiatry 06/16/17 Mora Fritz Behavioral Health Navigator 06/15/18 Ok Jorge MD #2 [facility] [address] [place] [address] Consulting Physician Endocrinology 05/12/22 Orlin Urbina APRN, YUDI #2 [place] [address] Nurse Practitioner Advanced Practice Nurse 11/09/22 documented as of this encounter
--- OUTSIDE RECORDS SUMMARY | 2024-10-07 00:22 | XMS_ITS | Encounter Summary ---
Author Organization [facility] Address [address] [place] [address] Phone Care Team Providers Care Ecg Technician Name Role Phone Oswaldo Serrano MD Primary Care Provider [phone] Angel Crowe DPCiara Unavailable Mora Fritz Unavailable Unavailable Ok Jorge MD Unavailable Orlin Urbina APRN, LICENSED ARCHITECT Unavailable + [phone] Reason for Visit * Reason Onset Date Comments Results 08/29/2023 Encounter Details Date Type Department Care Team (Late st Contact Info) Description 08/29/2023 Telephone [facility] #2 [place] [address] Oswaldo Serrano MD #[address] [address] Results Social History Tobacco Use [...] Telephone Encounter - Zainab Roblero RN - 08/29/2023 10:57 AM CST Sent to my chart D ACCOUNT DIRECTOR * Telephone Encounter - Zainab Roblero RN - 08/29/2023 10:57 AM CST ----- Message from Oswaldo Serrano MD sent at 08/28/2023 8:34 AM FIELD ACCOUNT DIRECTOR ----- Let her know she needs to go up on the thyroid medication to 75 mcg daily. She does have blood in the urine and should discuss this with the Urologist I referred her to. Recheck labs in 6 weeks (nonfasting). Orders entered. Thanks! D ACCOUNT DIRECTOR documented in this encounter Plan of Treatment Upcoming Encounters Date Type Department Care Team (Late st Contact Info) Description 10/08/2024 2:15 PM FIELD ACCOUNT DIRECTOR Office Visit [facility] #2 [place] [address] Orlin Urbina, FOLDER SEAMER AUTOMATIC, LICENSED ARCHITECT #2 [place] [address] 10/18/2024 2:15 PM FIELD ACCOUNT DIRECTOR [facility] 1 [place] [address] Oswaldo Serrano MD #[address] [address] Discharge Disposition: Discharged to home or Selfcare 11/29/2024 2:30 PM FIELD ACCOUNT DIRECTOR Office Visit [facility] - Family Medicine [facility] #2 [place] [address] Oswaldo Serrano MD #[address] [address] 11/30/2024 3:00 PM FIELD ACCOUNT DIRECTOR Office Visit [facility] Medical [facility] - Endocrinology - [place] #2 [place] [address] Ok Jorge MD #[address] [address] documented as of this encounter Visit Diagnoses Not on filedocumented in this encounter Additional Health Concerns Assessment Noted Time PHQ-9 Depression Total Score: 0 08/09/20 23 2:56 PM CDT documented as of this encounter Care Teams Ecg Technician Relationship Specialty Start Date End Date Oswaldo Serrano MD #[address] [address] PCP - General Family Medicine 05/19/17 Angel Crowe DPM #[address] [address] Consulting Physician Podiatry 06/16/17 Mora Fritz [place] Behavioral Health Navigator 06/15/18 Ok Jorge MD #[address] [address] Consulting Physician Endocrinology 05/12/22 Orlin Urbina APRN, LICENSED ARCHITECT #2 [place] [address] Nurse Practitioner Advanced Practice Nurse 11/09/22 documented as of this encounter
--- OUTSIDE RECORDS SUMMARY | 2024-10-07 00:22 | XMS_ITS | Encounter Summary ---
Author Organization [facility] Address [address] [place] [address] Phone Care Team Providers Care Drill Rig Operator Name Role Phone Oswaldo Serrano MD Primary Care Provider [phone] Angel Crowe DPCiara Unavailable [phone] Mora Fritz Unavailable Unavailable Ok Jorge MD Unavailable Orlin Urbina APRN, PREMIUM CARD CANCELLATION CLERK Unavailable + [phone] Reason for Referral * Radiology Services (Less Than 2 Weeks) - Closed Specialty Diagnoses / Procedures Referred By Contac t Referred To Contact Radiology Diagnoses Hematuria, unspecified type Procedures CT UROGRAPHY WO/W CONTRAST Oswaldo Serrano MD #[address] [address] Phone: tel: fax: Referral ID Status Reason Start Date Expiration Date Visits Re quested Visits Authorized [id number] Closed 07/18/2023 1 1 Reason for Visit * Radiology Services (Less Than 2 Weeks) - Closed Specialty Diagnoses / Procedures Referred By Contac t Referred To Contact Radiology Diagnoses Hematuria, unspecified type Procedures CT UROGRAPHY WO/W CONTRAST Oswaldo Serrano MD #[address] [address] Phone: tel: fax: Referral ID Status Reason Start Date Expiration Date Visits Re quested Visits Authorized [id number] Closed 07/18/2023 1 1 Encounter Details Date Type Department Care Team (Latest Contact Info) Description 08/03/2023 1:54 PM CDT - 08/03/2023 11:59 PM CDT Hospital Encounter [facility] [address] [place] [address] Oswaldo Serrano MD #[address] [address] Discharge Disposition: Discharged to home or Selfcare Social History Tobacco Use Types Packs/Day Years Used Date Smoking Tobacco: Never Smokeless Tobacco: Never Alcohol Use Standard Drinks/Week Comments No 0 (1 standard drink = 0.6 oz pur e alcohol) PHQ-2 Answer Date Recorded Total Score - Questions 1-9 0 01/0 02/2023 Education Answer Date Recorded What is [...] suspected to have Coronavirus/COVID-19? No / Unsure 08/03/2023 1:44 PM CDT documented as of this encounter Medications at Time of Discharge Blood Glucose Monitoring Suppl Device Test blood glucose 1x daily, E11.9, insulin dependent 1 Each 12/30/2022 Blood Glucose Monitoring Suppl Device Test blood glucose 4 times daily. E11.9, insulin dependent 1 Each 2019 Continuous Blood Gluc Allied Health Instructor (Dexcom G7 Allied Health Instructor) Device 1 Each by Does not apply route 4 times daily. Use to check glucose 4x daily. 1 Each 04/29/2023 Continuous Blood Gluc Transmit (Dexcom G6 Transmitter) Mis 12/03/2021 Cyanocobalamin (B-12) 500 MCG Tablet Take 1 Tablet by mouth daily. 90 Tablet 3 11/14/2022 dilTIAZem (CARDIZEM) 30 MG Tablet TK 1 T PO TID 0 04/28/2017 Entresto 24-26 MG Tablet 09/11/2021 fluticasone (FLONASE) 50 MCG/ACT Suspension 1-2 Sprays by Nasal route daily. Use in each nostril as directed. 1 g 3 02/01/2023 Insulin Syringe-Needle U-100 (TRUEPLUS INSULIN SYRINGE) 31G X 5/16 0.5 ML Misc USE 4 TIMES DAILY 400 Each 3 2019 Lancets Mis 1 Lancet by Does not apply route [...] 4 docusate sodium (COLACE) 100 MG Capsule Take 1 Capsule by mouth 2 times daily. 60 Capsule 2 05/18/2023 3 escitalopram (LEXAPRO) 10 MG Tablet TAKE 1 [...] every morning. 15 mL 1 07/18/2023 4 Insulin Pen Needle (PEN NEEDLES 31GX5/16 ) 31G X 8 MM Misc Use to inject insulin 4x daily. 400 Each 3 11/10/2022 4 levothyroxine (SYNTHROID) 50 MCG Tablet Take 1 Tablet by mouth every morning. 90 Tablet 2 12/14/2022 3 nortriptyline (PAMELOR) 10 MG Capsule Take 1 [...] st Contact Info) Description 10/08/2024 2:15 PM UX LEAD Office Visit [facility] #2 [place] [address] Orlin Urbina, DOPER OPERATOR, PREMIUM CARD CANCELLATION CLERK #2 [place] [address] 10/18/2024 2:15 PM UX LEAD [facility] 1 [place] [address] Oswaldo Serrano MD #2 [facility] [address] [place] [address] Discharge Disposition: Discharged to home or Selfcare 11/29/2024 2:30 PM UX LEAD Office Visit [facility] - [place] #2 [place] [address] Oswaldo Serrano MD #2 [facility] [address] [place] [address] 11/30/2024 3:00 PM UX LEAD Office Visit [facility] - Endocrinology - [place] #2 [place] [address] Ok Jorge MD #2 [facility] [address] [place] [address] documented as of this encounter Procedures Procedure Name Priority Date/Time Associated Diagnosis Comments CT UROGRAPHY WO/W CONTRAST Less Than 2 weeks 08/03/2023 2:40 PM CDT Hematuria, unspecified type POCT CREATININE Routine 08/03/2023 2:13 PM CDT documented in this encounter Results * CT UROGRAPHY WO/W [...] AM T: ??08/06/2023 10:06 AM Report ID: [id number] Reading Location: ??[id number] THIS IS AN ELECTRONICALLY VERIFIED FINAL REPORT 08/06/2023 10:12 AM ??Addendum Electronically signed by Eric Aguilar M.D. AM: AM D: ??08/06/2023 10:12 AM T: ??08/06/2023 10:12 AM Report ID: [id number] Reading Location: ??[id number] Impressions 08/06/2023 10:08 AM CDT IMPRESSION: No [...] AM T: ??08/06/2023 10:06 AM Report ID: [id number] Reading Location: ??[id number] Procedure Note Eric Aguilar MD - 08/06/2023 [...] Eric Aguilar M.D. AM: AM Report ID: [id number] Reading Location: [place] [address] IMPRESSION: No suspicious findings on CT IVP/Urography. No acute abnormalities. Small hiatal hernia Colonic diverticulosis without diverticulitis Cardiomegaly us Oswaldo Serrano MD IMG CT ORDERABLES Edited Re sult - Final * POCT Creatinine (08/03/2023 2:13 PM CDT) CREATININE - POCT 0.8 0.6 - 1.3 mg/dL 08/03/2023 2:16 PM CDT [facility] Blood 08/03/2023 2:13 PM CDT 08/03/2023 2:16 PM CDT us None Provider POINT OF CARE TESTING Final Resu lt [facility] #1 [place] [address] documented in this encounter Visit Diagnoses Diagnosis Hematuria, unspecified type documented in this encounter Administered Medications Inactive Administered Medications - up to 3 most recent administrations Medication Order MAR Action Action Date Dose Rate Site iopamidol (ISOVUE-370) 76 % injection 100 mL 100 mL, Intravenous, ONCE, 1 dose, On Tue08/03/23 at 1430 Given 08/03/2023 2:32 PM CDT 100 mL documented in this encounter Additional Health Concerns Assessment Noted Time PHQ-9 Depression Total Score: 0 10/14/19 23 11:00 AM UX LEAD documented as of this encounter Care Teams Drill Rig Operator Relationship Specialty Start Date End Date Oswaldo Serrano MD #[address] [address] PCP - General Family Medicine 05/19/17 Angel Crowe DPM #[address] [address] Consulting Physician Podiatry 06/16/17 Mora Fritz Behavioral Health Navigator 06/15/18 Ok Jorge MD #[address] [facility] [address] [address] [address] Consulting Physician Endocrinology 05/12/22 Orlin Urbina APRN, PREMIUM CARD CANCELLATION CLERK #2 [place] [address] Nurse Practitioner Advanced Practice Nurse 11/09/22 documented as of this encounter
--- OUTSIDE RECORDS SUMMARY | 2024-10-07 00:22 | XMS_ITS | Encounter Summary ---
Author Organization [employer] Care Team Providers Care Bakelite Molder Name Role Phone Oswaldo Serrano MD Primary Care Provider [phone] Angel Crowe DPCiara Unavailable [phone] Mora Fritz Unavailable Unavailable Ok Jorge MD Unavailable Orlin Urbina APRN, LETTUCE CUTTER Unavailable + [phone] Encounter Details Date Type Department Care Team (Latest Contact Info) Description 11/09/2023 Travel Social History Tobacco Use Types Packs/Day Years Used Date Smoking Tobacco: Never Smokeless Tobacco: Never Alcohol Use Standard Drinks/Week Comments No 0 (1 standard drink = 0.6 oz pur e alcohol) [facility] Utilities Answer Date Recorded In the past 12 months has [employer], gas, oil, or water company threatened to [...] often do you attend chur ch or holiness services? Never 11/09/2023 Do you belong to any clubs o r organizations such as evangelical groups, unions, fraternal or athletic groups, or [...] Total Score - Questions 1-9 0 07/12 [facility] ional [...] of Assessment Author 0 11/09/2023 4:01 PM SOFTWARE APPLICATIONS DESIGNER [facility] * Within the last year, have you been humiliated or emotionally abused in other ways by your partner or ex-partner? Answer Date of Assessment Author No 11/09/2023 4:01 PM SOFTWARE APPLICATIONS DESIGNER [facility] * Within the last year, have you been afraid of your partner or ex-partner? Answer Date of Assessment Author No 11/09/2023 4:01 PM SOFTWARE APPLICATIONS DESIGNER [facility] * Within the last year, have you been raped or forced to have any kind of sexual activity by your partner or ex-partner? Answer Date of Assessment Author No 11/09/2023 4:01 PM SOFTWARE APPLICATIONS DESIGNER [facility] * Within the last year, have you been kicked, hit, slapped, or otherwise physically hurt by your partner or ex-partner? Answer Date of Assessment Author No 11/09/2023 4:01 PM SOFTWARE APPLICATIONS DESIGNER [facility] * Q1: How often do you have a drink containing alcohol? Answer Date of Assessment Author Never 11/09/2023 4:01 PM SOFTWARE APPLICATIONS DESIGNER [facility] * Q2: How many drinks containing alcohol do you have on a typical day when you are drinking? Answer Date of Assessment Author Patient does not drink 11/09/2023 4:01 PM SOFTWARE APPLICATIONS DESIGNER [facility] [place] [facility] * Q3: How often do you have six or more drinks on one occasion? Answer Date of Assessment Author Hue 11/09/2023 4:01 PM SOFTWARE APPLICATIONS DESIGNER [facility] documented as of this encounter Plan of Treatment Upcoming Encounters Date Type Department Care Team (Late st Contact Info) Description 10/08/2024 2:15 PM SOFTWARE APPLICATIONS DESIGNER Office Visit [facility] PHYS[facility]IAN [facility] UROLOGY #2 [place] [address] Orlin Urbina APRN, LETTUCE CUTTER #2 [place] [address] 10/18/2024 2:15 PM SOFTWARE APPLICATIONS DESIGNER [facility] 1 [place] [address] Oswaldo Serrano MD #2 [facility] [address] [place] [address] Discharge Disposition: Discharged to home or Selfcare 11/29/2024 2:30 PM SOFTWARE APPLICATIONS DESIGNER Office Visit [facility] - [facility] - [place] #2 [place] [address] Oswaldo Serrano MD #2 [facility] [address] [place] [address] 11/30/2024 3:00 PM SOFTWARE APPLICATIONS DESIGNER Office Visit [facility] - Endocrinology - [place] #2 [place] [address] Ok Jorge MD #2 [facility] [address] [place] [address] documented as of this encounter Visit Diagnoses Not on filedocumented in this encounter Additional Health Concerns Assessment Noted Time PHQ-9 Depression Total Score: 0 08/09/20 23 2:56 PM CDT documented as of this encounter Care Teams Bakelite Molder Relationship Specialty Start Date End Date Oswaldo Serrano MD #2 [facility] [address] [place] [address] PCP - General Family Medicine 05/19/17 Angel Crowe DPM #2 [facility] [address] [place] [address] Consulting Physician Podiatry 06/16/17 Mora Fritz [place] Behavioral Health Navigator 06/15/18 Ok Jorge MD #2 [facility] [address] [place] [address] Consulting Physician Endocrinology 05/12/22 Orlin Urbina APRN, LETTUCE CUTTER #2 [place] [address] Nurse Practitioner Advanced Practice Nurse 11/09/22 documented as of this encounter
--- OUTSIDE RECORDS SUMMARY | 2024-10-07 00:22 | XMS_ITS | Encounter Summary ---
Author Organization [facility] Address [address] [place] [address] Phone Care Team Providers Care Forest Fire Fighters Dispatcher Name Role Phone Oswaldo Serrano MD Primary Care Provider [phone] Angel Crowe DPM Unavailable [phone] Mora Fritz Unavailable Unavailable kO Jorge MD Unavailable Orlin Urbina APRN, PLANT FLOOR AUTOMATION MANAGER Unavailable [phone] Reason for Visit * Reason Comments Medication Refill Encounter Details Date Type Department Care Team (Late st Contact Info) Description 10/10/2023 Refill [facility]ology - [place] #2 [place] [address] Ok Jorge MD #[address] [address] Medication Refill Social History Tobacco [...] Miscellaneous Notes * Telephone Encounter - Ynes Zuniga, RN - 10/11/2023 9:03 AM HAND LAMINATOR Requested Prescriptions Pending Prescriptions Disp Refills ??? Insulin Pen Needle (BD Pen Needle Jackelin 2nd Gen) 32G X 4 MM Misc [Pharmacy Med Name: B-D JACKELIN 2ND GEN PEN NDL [id number]] 400 Each Sig: USE TO INJECT FOUR TIMES DAILY Next appt: 12/13/2023 LAMINATOR documented in this encounter Plan of Treatment Upcoming Encounters Date Type Department Care Team (Late st Contact Info) Description 10/08/2024 2:15 PM HAND LAMINATOR Office Visit [facility] UROLOGY #2 [place] [address] Orlin Urbina, INFERTILITY MEDICAL ASSISTANT, PLANT FLOOR AUTOMATION MANAGER #2 [place] [address] 10/18/2024 2:15 PM HAND LAMINATOR [facility]ointment [facility] Mammography 1 [place] [address] Oswaldo Serrano MD #[address] [address] Discharge Disposition: Discharged to home or Selfcare 11/29/2024 2:30 PM HAND LAMINATOR Office Visit [facility] - Family Medicine [facility] #2 [place] [address] Oswaldo Serrano MD #[address] [address] 11/30/2024 3:00 PM HAND LAMINATOR Office Visit [facility] Endocrinology [facility] #2 [facility] [address] Ok Jorge MD #[address] [address] documented as of this encounter Visit Diagnoses Not on filedocumented in this encounter Additional Health Concerns Assessment Noted Time PHQ-9 Depression Total Score: 0 08/09/20 23 2:56 PM CDT documented as of this encounter Care Teams Forest Fire Fighters Dispatcher Relationship Specialty Start Date End Date Oswaldo Serrano MD #[address] [address] PCP - General Family Medicine 05/19/17 Angel Crowe DPM #[address] [address] Consulting Physician Podiatry 06/16/17 Mora Fritz [place] Behavioral Health Navigator 06/15/18 Ok Jorge MD #[address] [address] Consulting Physician Endocrinology 05/12/22 Orlin Urbina APRN, PLANT FLOOR AUTOMATION MANAGER #2 [place] [address] Nurse Practitioner Advanced Practice Nurse 11/09/22 documented as of this encounter
--- OUTSIDE RECORDS SUMMARY | 2024-10-07 00:22 | XMS_ITS | Encounter Summary ---
Author Organization [employer] Care Team Providers Care Printed Circuit Board Assembly Repairer Name Role Phone Oswaldo Serrano MD Primary Care Provider [phone] Angel Crowe DPM Unavailable [phone] Mora Fritz Unavailable Unavailable Ok Jorge MD Unavailable Orlin Urbina APRN, BALLOON TESTER Unavailable + [phone] Encounter Details Date Type Department Care Team (Latest Contact Info) Description 05/03/2023 Travel Social History Tobacco Use Types Packs/Day [...] suspected to have Coronavirus/COVID-19? No / Unsure 05/03/2023 3:38 PM CDT documented as of this encounter Plan of Treatment Upcoming Encounters Date Type Department Care Team (Late st Contact Info) Description 10/08/2024 2:15 PM HOTEL OR MOTEL RECEPTIONIST Office Visit [facility] UROLOGY #2 [facility] [place] [address] Orlin Urbina, TRAFFIC WORKFORCE 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, BALLOON TESTER #2 [place] [address] 10/18/2024 2:15 PM HOTEL OR MOTEL RECEPTIONIST [facility] 1 [place] [address] Oswaldo Serrano MD #2 [facility] [address] [place] [address] Discharge Disposition: Discharged to home or Selfcare 11/29/2024 2:30 PM HOTEL OR MOTEL RECEPTIONIST Office Visit [facility] - [place] #2 [place] [address] Oswaldo Serrano MD #[address] [address] 11/30/2024 3:00 PM HOTEL OR MOTEL RECEPTIONIST Office Visit [facility] - Endocrinology - [place] #2 [place] [address] Ok Jorge MD #[address] [address] documented as of this encounter Visit Diagnoses Not on filedocumented in this encounter Additional Health Concerns Assessment Noted Time PHQ-9 Depression Total Score: 0 10/14/19 11:00 AM HOTEL OR MOTEL RECEPTIONIST documented as of this encounter Care Teams Printed Circuit Board Assembly Repairer Relationship Specialty Start Date End Date Oswaldo Serrano MD #2 [facility] [address] [place] [address] PCP - General Family Medicine 05/19/17 Angel Crowe DPM #2 [facility] [address] [place] [address] Consulting Physician Podiatry 06/16/17 Mora Fritz [place] Behavioral Health Navigator 06/15/18 Ok Jorge MD #[address] [address] Consulting Physician Endocrinology 05/12/22 Orlin Urbina, TRAFFIC WORKFORCE 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, BALLOON TESTER #2 [place] [address] Nurse Practitioner Advanced Practice Nurse 11/09/22 documented as of this encounter
--- OUTSIDE RECORDS SUMMARY | 2024-10-07 00:22 | XMS_ITS | Encounter Summary ---
Author Organization [facility] Address [address] [place] [address] Phone Care Team Providers Care Electronic Warfare Officer Name Role Phone Oswaldo Serrano MD Primary Care Provider [phone] Angel Crowe DPCiara Unavailable [phone] Mora Fritz Unavailable Unavailable Ok Jorge MD Unavailable Orlin Urbina APRN, CIO Unavailable + [phone] Reason for Visit * Reason Onset Date Comments Medication Refill 05/18/2023 Encounter Details Date Type Department Care Team (Late st Contact Info) Description 05/18/2023 Refill [facility] #2 [place] [phone] Oswaldo Serrano MD #[address] [address] Medication Refill Social History Tobacco Use Types [...] Telephone Encounter - Zainab Roblero RN - 05/18/2023 9:25 AM CDT Medication failed the protocol, provider to review and approve the medication order if appropriate. Requested Prescriptions Pending Prescriptions Disp Refills docusate sodium (COLACE) 100 MG Capsule 60 Capsule 2 Sig: Take 1 Capsule by mouth 2 times daily. Laxatives Protocol Passed - 05/18/2023 8:56 AM Passed - Visit with relevant provider in past 12 months or upcoming 90 days Recent Visits Date Type Provider Dept 05/03/23 Office Visit Oswaldo Serrano MD [facility] 02/01/23 Office Visit Oswaldo Serrano MD [facility] 01/13/23 Telemedicine Oswaldo Serrano MD [facility] 10/14/22 Office Visit Oswaldo Serrano MD [facility] 08/26/22 Office Visit Connor Yuan APRN, YUDI Hearn 05/25/22 Office Visit Tom Quach MD [facility] Showing recent visits within past 365 days and meeting all other requirements Future Appointments Date Type Provider Dept 08/09/23 Appointment Oswaldo Serrano MD [facility] Showing future appointments within next 90 days and meeting all other requirements Passed - Up to date with colon cancer screening Health Maintenance * Telephone Encounter - María Perdomo MA - 05/18/2023 8:54 AM CDT Received [facility] refill fax request for: Docusate sod 100 mg capsules Take one capsule by mouth twice daily. 60 quant with refills documented in this encounter Plan of Treatment Upcoming Encounters Date Type Department Care Team (Late st Contact Info) Description 10/08/2024 2:15 PM BIOMETRICIAN Office Visit [facility] GROUP UROLOGY #2 [place] [address] Orlin Urbina APRN, CIO #2 [place] [address] 10/18/2024 2:15 PM BIOMETRICIAN [facility] 1 [place] [address] Oswaldo Serrano MD #[address] [address] Discharge Disposition: Discharged to home or Selfcare 11/29/2024 2:30 PM BIOMETRICIAN [facility] Visit [facility] - [place] #2 [place] [address] Oswaldo Serrano MD #[address] [address] 11/30/2024 3:00 PM BIOMETRICIAN Office Visit [facility] - [place] #2 [place] [address] Ok Jorge MD #[address] [address] documented as of this encounter Visit Diagnoses Not on filedocumented in this encounter Additional Health Concerns Assessment Noted Time PHQ-9 Depression Total Score: 0 10/14/19 23 11:00 AM BIOMETRICIAN documented as of this encounter Care Teams Electronic Warfare Officer Relationship Specialty Start Date End Date Oswaldo Serrano MD #[address] [address] PCP - General Family Medicine 05/19/17 Angel Crowe DPM #[address] [address] Consulting Physician Podiatry 06/16/17 Mora Fritz [place] Behavioral Health Navigator 06/15/18 Ok Jorge MD #[address] [address] Consulting Physician Endocrinology 05/12/22 Orlin Urbina APRN, CIO #2 [place] [address] Nurse Practitioner Advanced Practice Nurse 11/09/22 documented as of this encounter
--- OUTSIDE RECORDS SUMMARY | 2024-10-07 00:22 | XMS_ITS | Encounter Summary ---
Author Organization [facility] Care Team Providers Care Ceramic Coater Name Role Phone Oswaldo Serrano MD Primary Care Provider [phone] Angel Crowe DPM Unavailable [phone] Mora Fritz Unavailable Unavailable Ok Jorge MD Unavailable Orlin Urbina APRN, JAVA PROJECT MANAGER Unavailable + [phone] Encounter Details Date Type Department Care Team (Latest Contact Info) Description 08/03/2023 Travel Social History Tobacco Use Types Packs/Day [...] st Contact Info) Description 10/08/2024 2:15 PM DRAWING SUPERVISOR Office Visit [facility] #2 [place] [phone] Orlin Urbina, BUYER RENTER, JAVA PROJECT MANAGER #2 [place] [address] 10/18/2024 2:15 PM DRAWING SUPERVISOR Appointment [facility] Mammography 1 [place] [phone] Oswaldo Serrano MD #2 [facility] [address] [place] [address] Discharge Disposition: Discharged to home or Selfcare 11/29/2024 2:30 PM DRAWING SUPERVISOR Office Visit [facility] [place] #2 [place] [address] Oswaldo Serrano MD #[address] [address] 11/30/2024 3:00 PM DRAWING SUPERVISOR Office Visit [facility] - [place] #2 [place] [address] Ok Jorge MD #[address] [phone] documented as of this encounter Visit Diagnoses Not on filedocumented in this encounter Additional Health Concerns Assessment Noted Time PHQ-9 Depression Total Score: 0 10/14/19 11:00 AM DRAWING SUPERVISOR documented as of this encounter Care Teams Ceramic Coater Relationship Specialty Start Date End Date Oswaldo Serrano MD #2 [facility] [address] [place] [address] PCP - General Family Medicine 05/19/17 Angel Crowe DPM #2 [facility] [address] [place] [address] Consulting Physician Podiatry 06/16/17 Mora Fritz [place] Behavioral Health Navigator 06/15/18 Ok Jorge MD #[address] [address] Consulting Physician Endocrinology 05/12/22 Orlin Urbina, BUYER RENTER, JAVA PROJECT MANAGER #2 [place] [address] Nurse Practitioner Advanced Practice Nurse 11/09/22 documented as of this encounter
--- OUTSIDE RECORDS SUMMARY | 2024-10-07 00:22 | XMS_ITS | Encounter Summary ---
Author Organization [facility] Address [address] [place] [address] Phone Care Team Providers Care Emergency Management Consultant Name Role Phone Oswaldo Serrano MD Primary Care Provider [phone] Angel Crowe DPCiara Unavailable [phone] Mora Fritz Unavailable Unavailable Ok Jorge MD Unavailable Orlin Urbina APRN, CUPBOARD BUILDER Unavailable + [phone] Reason for Visit * Reason Onset Date Comments Medication Refill 02/16/2023 Encounter Details Date Type Department Care Team (Late st Contact Info) Description 02/16/2023 [facility]ill [facility] #2 [place] [phone] Oswaldo Serrano MD #[address] [address] Medication Refill Social History Tobacco Use Types [...] encounter Miscellaneous Notes * Telephone Encounter - Amada Becerra RN - 02/16/2023 2:59 PM CDT Medication(s) refilled and signed per [facility] Chronic Medication Refill Standing Order for Pediatricand Adult Patients. Requested Prescriptions Pending Prescriptions Disp Refills ??? docusate sodium (COLACE) 100 MG Capsule 60 Capsule 2 Sig: Take 1 Capsule by mouth 2 times daily. Laxatives Protocol Passed - 02/16/2023 6:58 AM Passed - Visit with relevant provider in past 12 months or upcoming 90 days Recent Visits Date Type Provider Dept 02/01/23 Office Visit Oswaldo Serrano MD [facility] 01/13/23 Telemedicine Oswaldo Serrano MD [facility] 10/14/22 Office Visit Oswaldo Serrano MD [facility] 08/26/22 Office Visit Connor Yuan APRN, [facility] 05/25/22 Office Visit Tom Quach MD [facility] Showing recent visits within past 365 days and meeting all other requirements Future Appointments Date Type Provider Dept 05/03/23 Appointment Oswaldo Serrano MD [facility] Showing future appointments within next 90 days and meeting all other requirements Passed - Up to date with colon cancer screening Health Maintenance * Telephone Encounter - Sylvia Florez RMA - 02/16/2023 6:56 AM CDT Received fax from [facility] for refill request documented in this encounter Plan of Treatment Upcoming Encounters Date Type Department Care Team (Late st Contact Info) Description 10/08/2024 2:15 PM HEALTH AND WELLNESS ADVISOR Office Visit [facility] UR[facility] #2 [place] [phone] Orlin Urbina APRN, CUPBOARD BUILDER #2 [place] [address] 10/18/2024 2:15 PM HEALTH AND WELLNESS ADVISOR Appointment [facility] Mammography 1 [place] [phone] Oswaldo Serrano MD #[address] [address] Discharge Disposition: Discharged to home or Selfcare 11/29/2024 2:30 PM HEALTH AND WELLNESS ADVISOR [facility] Visit [facility] #2 [place] [address] Oswaldo Serrano MD #[address] [address] 11/30/2024 3:00 PM HEALTH AND WELLNESS ADVISOR Office Visit [facility] - [place] #2 [place] [phone] Ok Jorge MD #[address] [place] [address] documented as of this encounter Visit Diagnoses Not on filedocumented in this encounter Additional Health Concerns Assessment Noted Time PHQ-9 Depression Total Score: 0 10/14/19 11:00 AM HEALTH AND WELLNESS ADVISOR documented as of this encounter Care Teams Emergency Management Consultant Relationship Specialty Start Date End Date Oswaldo Serrano MD #2 [facility] [address] [place] [address] PCP - General Family Medicine 05/19/17 Angel Crowe DPM #2 [facility] [address] [place] [address] Consulting Physician Podiatry 06/16/17 Mora Fritz [place] Behavioral Health Navigator 06/15/18 Ok Jorge MD #2 [facility] [address] [place] [address] Consulting Physician Endocrinology 05/12/22 Orlin Urbina APRN, CUPBOARD BUILDER #2 [place] [address] Nurse Practitioner Advanced Practice Nurse 11/09/22 documented as of this encounter
--- OUTSIDE RECORDS SUMMARY | 2024-10-07 00:22 | XMS_ITS | Encounter Summary ---
Author Organization [email or web address] Care Team Providers Care Software Engineering Supervisor Name Role Phone Oswaldo Serrano MD Primary Care Provider [phone] Angel Crowe DPM Unavailable [phone] Mora Fritz Unavailable Unavailable Ok Jorge MD Unavailable Orlin Urbina APRN, BILLING COORDINATOR Unavailable + [phone] Encounter Details Date Type Department Care Team (Latest Contact Info) Description 06/21/2023 Travel Social History Tobacco Use Types Packs/Day [...] st Contact Info) Description 10/08/2024 2:15 PM BLENDING KETTLE TENDER Office Visit [facility] UROLOGY #2 [facility] [place] [phone] Orlin Urbina, CIGARETTE TESTER, BILLING COORDINATOR #2 [place] [address] 10/18/2024 2:15 PM BLENDING KETTLE TENDER [facility]ment [facility] 1 [place] [phone] Oswaldo Serrano MD #2 [facility] [address] [place] [address] Discharge Disposition: Discharged to home or Selfcare 11/29/2024 2:30 PM BLENDING KETTLE TENDER Office Visit [facility] - [place] #2 [place] [address] Oswaldo Serrano MD #[address] [address] 11/30/2024 3:00 PM BLENDING KETTLE TENDER Office Visit [facility] - [place] #2 [place] [address] Ok Jorge MD #[address] [phone] documented as of this encounter Visit Diagnoses Not on filedocumented in this encounter Additional Health Concerns Assessment Noted Time PHQ-9 Depression Total Score: 0 10/14/19 11:00 AM BLENDING KETTLE TENDER documented as of this encounter Care Teams Software Engineering Supervisor Relationship Specialty Start Date End Date Oswaldo Serrano MD #2 [facility] [address] [place] [address] PCP - General Family Medicine 05/19/17 Angel Crowe DPM #2 [facility] [address] [place] [address] Consulting Physician Podiatry 06/16/17 Mora Fritz [place] Behavioral Health Navigator 06/15/18 Ok Jorge MD #[address] [address] Consulting Physician Endocrinology 05/12/22 Orlin Urbina, CIGARETTE TESTER, BILLING COORDINATOR #2 [place] [address] Nurse Practitioner Advanced Practice Nurse 11/09/22 documented as of this encounter
--- OUTSIDE RECORDS SUMMARY | 2024-10-07 00:22 | XMS_ITS | Encounter Summary ---
Author Organization [facility] Address [address] [place] [address] Phone Care Team Providers Care Manifest Clerk Name Role Phone Oswaldo Serrano MD Primary Care Provider [phone] Angel Crowe DPM Unavailable [phone] Mora Fritz Unavailable Unavailable Ok Jorge MD Unavailable Orlin Urbina APRN, BASE LOADER Unavailable + [phone] Reason for Visit * Reason Comments Follow-up 3 mo fu Encounter Details Date Type Department Care Team (Late st Contact Info) Description 11/09/2023 3:45 PM ECHO VASC TECH [facility] Visit [facility] #2 [place] [address] Oswaldo Serrano MD #[address] [address] Primary hypertension (Primary Dx); Elevated LFTs; Infection of both eyes Discharge Disposition: Discharged to home or Selfcare Social History Tobacco Use Types Packs/Day Years Used Date Smoking Tobacco: Never Smokeless Tobacco: Never Tobacco Cessation:Counseling Given: Yes Alcohol Use Standard Drinks/Week Comments No 0 (1 standard drink = 0.6 oz pur e alcohol) [facility] Utilities Answer Date Recorded In the [...] often do you attend chur ch or mosque services? Never 11/09/2023 Do you belong to any clubs o r organizations such as confucianist groups, unions, fraternal or athletic groups, or [...] Total Score - Questions 1-9 0 07/12 [facility] [place] of Occupat ional Health - Occupational Stress [...] Sign Reading Time Taken Comments Blood Pressure 150/100 11/09/2023 3:46 PM ECHO VASC TECH Pulse 84 11/09/2023 3:46 PM ECHO VASC TECH Temperature 36.1 ??C (96.9 ??F) 11/09/2023 3:46 PM CS T Respiratory Rate - - Oxygen Saturation 92% 11/09/2023 3:46 PM ECHO VASC TECH Inhaled Oxygen Concentration - - Weight - - Height 165.1 cm (5' 5 ) 11/09/2023 3:46 PM ECHO VASC TECH Body Mass Index - - documented in this encounter Functional Status * Audit-C Score Answer Date of Assessment Author 0 11/09/2023 4:01 PM ECHO VASC TECH [facility] * Within the last year, have you been humiliated or emotionally abused in other ways by your partner or ex-partner? Answer Date of Assessment Author No 11/09/2023 4:01 PM ECHO VASC TECH [facility] * Within the last year, have you been afraid of your partner or ex-partner? Answer Date of Assessment Author No 11/09/2023 4:01 PM ECHO VASC TECH [facility] * Within the last year, have you been raped or forced to have any kind of sexual activity by your partner or ex-partner? Answer Date of Assessment Author No 11/09/2023 4:01 PM ECHO VASC TECH [facility] * Within the last year, have you been kicked, hit, slapped, or otherwise physically hurt by your partner or ex-partner? Answer Date of Assessment Author No 11/09/2023 4:01 PM ECHO VASC TECH [facility] * Q1: How often do you have a drink containing alcohol? Answer Date of Assessment Author Never 11/09/2023 4:01 PM ECHO VASC TECH [facility] * Q2: How many drinks containing alcohol do you have on a typical day when you are drinking? Answer Date of Assessment Author Patient does not drink 11/09/2023 4:01 PM ECHO VASC TECH [facility] [place] * Q3: How often do you have six or more drinks on one occasion? Answer Date of Assessment Author Never 11/09/2023 4:01 PM ECHO VASC TECH [facility] documented as of this encounter Patient Instructions * Patient Instructions* Oswaldo Serrano MD - 11/09/2023 3:45 PM ECHO VASC TECH Use eye drops for 7 days. Cut down on looking at your phone. Do labs today! Get get mammogram and breast ultrasound done as scheduled. Call me Tuesday with your blood pressure / pulse readings. VASC TECH VASC TECH VASC TECH documented in this encounter Progress Notes * Stephanie Patrick, SHAWN - 11/09/2023 3:45 PM CST Loretta Penn, 62 y.o., female is here [...] blood glucose 1x daily, E11.9, insulin dependent 12/30/22 Yes Ok Jorge MD Blood Glucose Monitoring Suppl Device Test blood glucose 4 times daily. E11.9, insulin dependent 12/19/19 Yes Ok Jorge MD carvedilol (COREG) 25 MG Tablet 25 mg 2 times daily. 05/06/17 Yes Nica Muniz MD Continuous Blood Gluc Order Entry Representative (Dexcom G7 Order Entry Representative) Device 1 Each by Does not apply route 4 times daily. Use to check glucose 4x daily. 04/29/23 Yes Ok Jorge MD Continuous Blood Gluc Sensor (Dexcom G6 Sensor) Misc 10/05/22 Nica Muniz MD Continuous Blood Gluc Sensor (Dexcom G7 Sensor) Misc 1 Each by Does not apply route every 10 days. Change sensor every 10 days. 04/29/23 Yes Ok Jorge MD Continuous Blood [...] TAKE 1 CAPSULE BY MOUTH TWICE DAILY 11/04/23 Yes Oswaldo Serrano MD Entresto 24-26 MG Tablet 09/11/21 Yes Nica Muniz MD escitalopram (LEXAPRO) 10 MG Tablet TAKE 1 TABLET BY MOUTH DAILY 06/09/23 Yes Oswaldo Serrano MD fluticasone (FLONASE) 50 [...] glucose 4x daily. E11.9, insulin dependent 07/25/23 Yes Ok Jorge MD Glucose Blood Strip Use to test blood glucose 1x daily. E11.9, insulin dependent 02/09/23 Yes Ok Jorge MD insulin glargine (Basaglar KwikPen) 100 UNIT/ML Solution Pen-injector 20 Units by Subcutaneous route every morning. 07/18/23 Yes Ok Jorge MD Insulin Pen Needle [...] Take 1 Capsule by mouth nightly. 06/07/23 Yes Yves Serrano MD NovoLOG FlexPen 100 UNIT/ML Solution Pen-injector INJECT 16-13-10 UNITS BEFORE EACH MEAL -- ISF OF 1:30 IF GREATER THAN 140MG/DL UP TO 70 UNITS PER DAY 07/18/23 Yes Ok Jorge MD omeprazole (PriLOSEC) 20 MG CAPSULE DELAYED RELEASE TAKE 1 CAPSULE BY MOUTH DAILY 07/17/23 Yes Oswaldo Serrano MD potassium chloride SA (KLORCON M) 20 MEQ Tablet Controlled Release Take 1 Tablet by mouth daily. 07/17/23 Yes Oswaldo Serrano MD rivaroxaban (Xarelto) 20 [...] Immunization (1 of 2) Never done ??? Hepatitis B Immunization (1 of 3 - Risk 3-dose series) Never done ??? Influenza Immunization (1) 06/10/2023 ??? SARS-COV-2 Immunization ( season) 2023 Orders Pended: no The following BPA's have been addressed with the patient today: Flu VASC TECH * Oswaldo Serrano MD - 11/09/2023 3:45 PM CST CHIEF COMPLAINT: Hypertension. SUBJECTIVE: The patient is here today to discuss her blood pressure. It is high today 150/100 with a pulse of 84. She has been upset today. She is remembering her who years ago. Last time she was in the office in July her blood pressure was 108/72. She has been in a bad mood. She is overdue to have her labs done, including a CBC for her thrombocytosis. Her hemoglobin was elevated 16.4. She is having dry eyes and has some matting on both eyelashes. She spends a lot of time on her phone. I have reviewed all the systems. They are negative except as mentioned in HPI. OBJECTIVE: Vital Signs: Blood pressure 150/100, pulse 84, temperature 96.9, BMI 47.79. General: The patient is talkative, cooperative and appropriately dressed. She was in a bad mood today and cried during my interview. Chest: Clear to auscultation bilaterally. No wheezing. Heart: S1, S2. No murmurs. Eyes: There is erythema noted in both sclerae. I do not see any matting on her eyelashes. ASSESSMENT AND PLAN: 1. Bilateral eye infection. I gave her Cipro ophthalmic drops. 2. Polycythemia. I will get a CBC on her. 3. Elevated liver enzymes. We will check a CMP. 4. Hypertension. I told her to call me this coming Tuesday for an update on her blood pressure readings. 5. This patient has follow up in 3 months. IJN: [id number] VASC TECH VASC TECH documented in this encounter Plan of Treatment Upcoming Encounters Date Type Department Care Team (Late st Contact Info) Description 10/08/2024 2:15 PM ECHO VASC TECH Office Visit [facility] UROLOGY #2 [place] [address] Orlin Urbina APRN, BASE LOADER #2 [place] [address] 10/18/2024 2:15 PM ECHO VASC TECH Appointment [facility] Mammography [address] [place] [address] Oswaldo Serrano MD #[address] [address] Discharge Disposition: Discharged to home or Selfcare 11/29/2024 2:30 PM ECHO VASC TECH [facility] Visit [facility] - [place] #2 [place] [address] Oswaldo Serrano MD #[address] [address] 11/30/2024 3:00 PM ECHO VASC TECH Office Visit [facility] - Endocrinology [facility] #2 [place] [address] Ok Jorge MD #[address] [address] documented as of this encounter Results * (ABNORMAL) CMP (COMPREHENSIVE METABOLIC PANEL) (11/09/2023 4:54 PM ECHO VASC TECH) SODIUM 140 136 - 145 mmol/L 11/09/2023 6:39 PM ECHO VASC TECH [facility] POTASSIUM 4.0 3.5 - 5.1 mmol/L 11/09/2023 6:39 PM ECHO VASC TECH [facility] CHLORIDE 103 98 - 107 mmol/L 11/09/2023 6:39 PM ECHO VASC TECH [facility] CO2, VENOUS 27 22 - 30 mmol/L 11/09/2023 6:39 PM ECHO VASC TECH [facility] ANION GAP 14.0 <18.0 mmol/L 11/09/2023 6:39 PM ECHO VASC TECH [facility] GLUCOSE 181(H) 70 - 99 mg/dL 11/09/2023 6:39 PM ECHO VASC TECH [facility] BUN 18 10 - 20 mg/dL 11/09/2023 6:39 PM [facility] CREATININE, BLOOD 1.03(H) 0.60 - 1.00 mg/dL 11/09/2023 6:39 PM [facility] BUN/CREATININE RATIO 17 12 - 20 ratio 11/09/2023 6:39 PM [facility] TOTAL PROTEIN 8.1 6.3 - 8.2 g/dL 11/09/2023 6:39 PM [facility] ALBUMIN 4.1 3.5 - 5.0 g/dL 11/09/2023 6:39 PM [facility] A/G RATIO 1.0 1.0 - 2.2 11/09/2023 6:39 PM [facility] CALCIUM 9.2 8.7 - 10.5 mg/dL 11/09/2023 6:39 PM [facility] T BILI 0.6 0.2 - 1.2 mg/dL 11/09/2023 6:39 PM [facility] SGOT (AST) 22 5 - 34 U/L 11/09/2023 6:39 PM [facility] SGPT (ALT) 22 0 - 55 U/L 11/09/2023 6:39 PM [facility] ALKALINE PHOSPHATASE 142 40 - 150 U/L 11/09/2023 6:39 PM [facility] IS THE PATIENT REQUIRED TO BE FASTING? No 11/09/2023 6:39 PM [facility] GFR, ESTIMATED >60 >=60 11/09/2023 6:39 PM [facility] Comment: Creatinine Clearance is the preferred criteria for selecting drug dose adjustments in renally impaired patients. ??The GFR is provided as additional pertinent clinical information. GFR is reported in mL/min/1.73 sq m. Calculation based on the Chronic Kidney Disease Epidemiology Collaboration (CKD- EPI) equation refit without adjustment for race. GFR, EST. >60 >=60 024 6:39 PM [facility] GFR, EST. NONAFRICAN 54(L) >=60 11/09/2023 6:39 PM ECHO VASC TECH [facility] Blood Venipuncture / Unknown 11/09/2023 4:54 PM ECHO VASC TECH 11/09/2023 6:10 PM ECHO VASC TECH Oswaldo Serrano MD CHEMISTRY ORDERABLES Final Result [facility] #1 [place] [address] documented in this encounter Visit Diagnoses Diagnosis Primary hypertension- Primary Unspecified essential hypertension Elevated LFTs Other abnormal blood chemistry Infection of both eyes documented in this encounter Additional Health Concerns Assessment Noted Time PHQ-9 Depression Total Score: 0 08/09/20 23 2:56 PM CDT documented as of this encounter Care Teams Manifest Clerk Relationship Specialty Start Date End Date Oswaldo Serrano MD #2 [facility] [address] [place] [address] PCP - General Family Medicine 05/19/17 Angel Crowe DPM #2 [facility] [address] [place] [address] Consulting Physician Podiatry 06/16/17 Mora Fritz Behavioral Health Navigator 06/15/18 Ok Jorge MD #2 [facility] [address] [place] [address] Consulting Physician Endocrinology 05/12/22 Orlin Urbina APRN, BASE LOADER #2 [place] [address] Nurse Practitioner Advanced Practice Nurse 11/09/22 documented as of this encounter
--- OUTSIDE RECORDS SUMMARY | 2024-10-07 00:22 | XMS_ITS | Encounter Summary ---
Author Organization [facility] Address [address] [place] [address] Phone Care Team Providers Care Emergency Medical Technician/Driver Name Role Phone Oswaldo Serrano MD Primary Care Provider [phone] Angel Crowe DPM Unavailable [phone] Mora Fritz Unavailable Unavailable Ok Jorge MD Unavailable Orlin Urbina APRN, DIRECT SUPPORT SPECIALIST Unavailable + [phone] Reason for Referral * Consult, Test & Initiate Treatment (Less Than 4 Weeks) - Closed Specialty Diagnoses / Procedures Referred By Contac t Referred To Contact Diagnoses Chronic congestive heart failure, unspecified heart failure type (HCC) Oswaldo Serrano MD #[address] [address] Phone: tel: fax: [facility] [address] [place] [address] Phone: tel: fax: Referral ID Status Reason Start Date Expiration Date Visits Re quested Visits Authorized [id number] Closed 05/03/2023 1 1 Scheduling Instructions Loretta is being referred to Nutrition services at [facility] or other specialist in patient's insurance network for CHF. See below for Loretta's current medications, allergies and problem list. Please contact patient for scheduling questions or concerns. CURRENT MEDS: Current Outpatient Medications: albuterol 108 (90 Base) MCG/ACT Aerosol Solution, take 1-2 Puffs by inhalation every 4 hours as needed for Cough., Disp: 1 g, Rfl: 0 Blood Glucose Monitoring Suppl Device, Test blood glucose 4 times daily. E11.9, insulin dependent, Disp: 1 Each, Rfl: 0 Blood Glucose Monitoring Suppl Device, Test blood glucose 1x daily, E11.9, insulin dependent, Disp: 1 Each, Rfl: 0 carvedilol (COREG) 25 MG Tablet, 25 mg 2 times daily., Disp: , Rfl: Continuous Blood Gluc Emergency Planning And Response Manager (Dexcom G7 Emergency Planning And Response Manager) Device, 1 Each by Does not apply route 4 times daily. Use to check glucose 4x daily., Disp: 1 Each, Rfl: 0 Continuous Blood Gluc Sensor (Dexcom G6 Sensor) Misc, , Disp: , Rfl: Continuous Blood Gluc Sensor (Dexcom G7 Sensor) Misc, 1 Each by Does not apply route every 10 days. Change sensor every 10 days., Disp: 3 Each, Rfl: 3 Continuous Blood Gluc Transmit (Dexcom G6 Transmitter) [...] , Rfl: escitalopram (LEXAPRO) 10 MG Tablet, Take 1 Tablet by mouth daily., Disp: 90 Tablet, Rfl: 1 fluticasone (FLONASE) 50 MCG/ACT Suspension, 1-2 Sprays by Nasal route daily. Use in each nostril as directed., Disp: 1 g, Rfl: 3 furosemide (LASIX) 40 MG Tablet, Take 1 Tablet by mouth daily., Disp: 90 Tablet, Rfl: 2 Glucose Blood (True Metrix Blood Glucose Test) Strip, TEST USING ONE STRIP FOUR TIMES DAILY E11.9, insulin dependent, Disp: 400 Each, Rfl: 3 Glucose Blood Strip, Use to test blood glucose 1x daily. E11.9, insulin dependent, Disp: 100 Strip, Rfl: 3 Glucose Blood Strip, Use to test blood glucose 2x daily. E11.9, insulin dependent, Disp: 200 Strip, Rfl: 3 insulin glargine (Basaglar KwikPen) 100 UNIT/ML Solution Pen-injector, 17 Units by Subcutaneous route every morning., Disp: 15 mL, Rfl: 1 Insulin Pen Needle (PEN NEEDLES 31GX5/16 ) 31G X 8 MM Misc, Use to inject insulin 4x daily., Disp: 400 Each, Rfl: 3 Insulin Syringe-Needle U-100 (TRUEPLUS INSULIN SYRINGE) 31G X 5/16 0.5 ML Misc, USE 4 TIMES DAILY, Disp: 400 Each, Rfl: 3 Lancets Misc, Test four times daily. E11.9, insulin dependent, Disp: 400 Lancet, Rfl: 3 Lancets Misc, 1 Lancet by Does not apply route daily. Test blood glucose 1x daily. E11.9, insulin dependent, Disp: 100 Lancet, Rfl: 3 levothyroxine (SYNTHROID) 50 MCG Tablet, Take 1 Tablet by mouth every morning., Disp: 90 Tablet, Rfl: 2 nortriptyline (PAMELOR) 10 MG Capsule, Take 1 Capsule by mouth nightly., Disp: 90 Capsule, Rfl: 1 NovoLOG FlexPen 100 UNIT/ML Solution Pen-injector, INJECT 16 UNITS BEFORE EACH MEAL -- [...] dinner). Take with food., Disp: , Rfl: trospium (SANCTURA) 20 MG Tablet, Take 1 Tablet by mouth in the morning and at bedtime., Disp: 60 Tablet, Rfl: 0 No current facility-administered medications for this visit. ALLERGIES: -- Sulfa Antibiotics -- Unknown and Hives -- Sulfamethoxazole-Trimethoprim -- Hives PROBLEM LIST: Patient Active Problem List: Chronic congestive heart failure (HCC) Cardiomegaly TBI (traumatic brain injury) ([facility]) History of atrial fibrillation Leg wound, right Hepatitis C virus infection Medically complex patient Depression Protuberant abdomen Elevated hemoglobin A1c Type 2 diabetes mellitus treated with insulin (HCC) Iron deficiency anemia Hypothyroidism Vitamin D deficiency Hypokalemia Diabetic polyneuropathy associated with type 2 diabetes mellitus (HCC) Type 2 diabetes mellitus with diabetic polyneuropathy, with long-term current use of insulin ([facility]) Dermatophytosis of nail Anemia of infection and [...] lower extremity Skin lesion of back Noncompliance Reason for Visit * Reason Comments Follow-up Encounter Details Date Type Department Care Team (Late st Contact Info) Description 05/03/2023 3:45 PM CDT Office Visit [facility] [address] [place] [address] Oswaldo Serrano MD #[address] [address] Foul smelling urine (Primary Dx); Chronic congestive heart failure, unspecified heart failure type (HCC); Systolic congestive heart failure, unspecified HF chronicity (HCC); Morbid obesity (HCC); Vitamin D deficiency Discharge Disposition: Discharged to home or Selfcare [...] Sign Reading Time Taken Comments Blood Pressure 90/66 05/03/2023 3:40 PM CDT Pulse 89 05/03/2023 3:40 PM CDT Temperature 35.8 ??C (96.5 ??F) 05/03/2023 3:40 PM CD T Respiratory Rate 16 05/03/2023 3:40 PM CDT Oxygen Saturation 94% 05/03/2023 3:40 PM CDT Inhaled Oxygen Concentration - - Weight 128.8 kg (284 lb) 05/03/2023 3:40 PM CDT Height 165.1 cm (5' 5 ) 05/03/2023 3:40 PM CDT Body Mass Index 47.26 05/03/2023 3:40 PM CDT documented in this encounter Patient Instructions * Patient Instructions* Oswaldo Serrano MD - 05/03/2023 3:45 PM CDT Do urine lab today! Call me in a few days to discuss the urine results. See all other doctors as scheduled. See synthetic department supervisor at [facility]. Fast 10 hours for labs. documented in this encounter Progress Notes * Senait Meredith MA - 05/03/2023 3:45 PM CDT Loretta Penn, 62 y.o., female [...] insulin dependent 12/19/19 Yes Ok Jorge MD Blood Glucose Monitoring Suppl Device Test blood glucose 1x daily, E11.9, insulin dependent 12/30/22Ok Jorge MD carvedilol (COREG) 25 MG Tablet 25 mg 2 times daily. 05/06/17 Yes Nica Muniz MD Continuous Blood Gluc Emergency Planning And Response Manager (Dexcom G7 Emergency Planning And Response Manager) Device 1 Each by Does not apply [...] 1 Capsule by mouth 2 times daily. 02/16/23 Yes Oswaldo Serrano MD Entresto 24-26 MG Tablet 09/11/21 Yes Nica Muniz MD escitalopram (LEXAPRO) 10 MG Tablet Take 1 Tablet by mouth daily. 12/14/22 Yes Oswaldo Serrano MD fluticasone (FLONASE) 50 [...] E11.9, insulin dependent 02/09/23 Ok Jorge MD Glucose Blood Strip Use to test blood glucose 2x daily. E11.9, insulin dependent 02/08/23 Ok Jorge MD insulin glargine (Basaglar KwikPen) [...] DAILY 12/19/19 Ok Jorge MD Lancets Misc Test four times daily. E11.9, insulin dependent 12/19/19 Yes Ok Jorge MD Lancets Misc 1 Lancet by Does not apply route daily. Test blood glucose 1x daily. E11.9, insulin dependent 12/30/22 Ok Jorge MD levothyroxine (SYNTHROID) 50 MCG [...] mouth in the morning and at bedtime. 03/08/23 Yes Orlin Urbina, JOHN, DIRECT SUPPORT SPECIALIST There are no discontinued medications. I have [...] Immunization (1 of 2) Never done ??? SARS-COV-2 Immunization (3 - Pfizer series) 03/15/2021 Orders Pended: no The following BPA's have been addressed with the patient today: No BPAs fired * Senait Meredith MA - 05/03/2023 3:45 PM CDT Loretta screened for Social Determinants of Health and screened positive for Clothing Needs, Utilities Needs, Food Insecurity and Stress. Patient declined resources. * Oswaldo Serrano MD - 05/03/2023 3:45 PM CDT CHIEF COMPLAINT: Smelly urine. SUBJECTIVE: Patient is here today to discuss her urine. The material control specialist says that her urine is smelly. She denies any dysuria. She has history of congestive heart failure. She does admit to adding salt to her food. Her weight is in the morbidly obese range. BMI is 47.26. She has not had her labs done I have ordered before. I have reviewed all the systems. They are negative except as mentioned in HPI. OBJECTIVE: Vital Signs: Blood pressure 90/66, pulse 89, temperature 96.5, respirations 16, weight 284. General: Patient is talkative, cooperative, appropriately dressed. Chest: Clear to auscultation bilaterally. No wheezing. Heart: S1, S2. No murmurs. Neck: No carotid bruits auscultated. ASSESSMENT/PLAN: 1. Morbid obesity. We will refer to a dietitian. I encouraged weight loss and exercising. 2. Congestive heart failure. We will get her in with a dietitian to help regulate her salt intake. 3. Smelly urine. We will get a UA and culture on her. 4. Noncompliance. I encouraged her to get her fasting labs done soon. 5. This patient is to follow up in 3 months. IJN: [id number] documented in this encounter Plan of Treatment Upcoming Encounters Date Type Department Care Team (Late st Contact Info) Description 10/08/2024 2:15 PM OFFENSIVE COORDINATOR Office Visit [facility] #2 [place] [address] Orlin Urbina, ATTENDANCE OFFICER, DIRECT SUPPORT SPECIALIST [address] [place] [address] 10/18/2024 2:15 PM OFFENSIVE COORDINATOR [facility]ointment [facility] [address] [place] [address] Oswaldo Serrano MD #2 [facility] [address] [place] [address] Discharge Disposition: Discharged to home or Selfcare 11/29/2024 2:30 PM OFFENSIVE COORDINATOR [facility] [place] [address] [place] [address] Oswaldo Serrano MD #[address] [address] 11/30/2024 3:00 PM OFFENSIVE COORDINATOR Office [facility] [place] [address] [place] [address] Ok Jorge MD #[address] [address] Scheduled Orders Name Type Priority Associated Diagnoses Orde r Schedule LIPID PANEL Lab Routine Systolic congestive heart failure, unspecified HF chronicity (HCC) Expected: 05/03/2023 (Approximate), Expires: 05/03/2024 Scheduled Referrals Name Type Priority Associated Diagnoses Order Schedule EXTERNAL CLINICAL NUTRITION REFERRAL Outpatient Referral Less Than 4 weeks Chronic congestive heart failure, unspecified heart failure type (HCC) Expected: 05/03/2023 (Approximate), Expires: 05/03/2024 documented as of this encounter Procedures Procedure Name Priority Date/Time Associated Diagnosis Comments CULTURE, URINE Today 05/04/2023 7:01 AM CDT Foul smelling urine documented in this encounter Results * VITAMIN D, 25 HYDROXY TOTAL (06/21/2023 2:56 PM CDT) VITAMIN D, 25 HYDROX 48 ng/mL 06/21/2023 4:04 PM CDT [facility] Blood Venipuncture / Unknown 06/21/2023 2:56 PM CDT 06/21/2023 3:14 PM CDT Narrative [facility] - 06/21/2023 4:04 PM CDT Published reference ranges for Vitamin D vary depending on time and place and method of testing, and on patient's age, sex, ethnicity and levels of other measured analytes such as parathormone, calcium and phosphorus. ??The result should be evaluated in conjunction with clinical findings and suspicions. [place] [employer] and Endocrine Clinical Practice Guidelines: Status Vitamin D levels (ng/mL) Deficient <=20 At risk of inadequacy 21-29 Sufficient 30-100 Centers of Disease Control and Prevention Guidelines: Status Vitamin D levels (ng/mL) Deficient <13 At risk of inadequacy 13-19 Sufficient 20-50 Possibly harmful >50 References: [place] [employer], 2010 Dietary reference intakes for calcium and vitamin D. Guidry [place]: ??The National Academies Press. Eve M, Forrest N, Maksim BIRCH, et al., Evaluation, treatment, and prevention of Vitamin D deficiency: an Endocrinology Clinical Practice Guideline. JCEM 2011 96: 7 2159-3868. Faiza A, Manjinder C, Tyson D, et al., Vitamin D Status: ??[place], 2000- 6, [facility] data brief, no. 59, MD Claudia: ??National Center for Health Statistics. 2010. Oswaldo Serrano MD CHEMISTRY ORDERABLES Final Result [facility] [address] [facility] [place] [address] * (ABNORMAL) URINALYSIS REFLEX IF INDICATED BY ABNORMAL RESULTS (06/21/2023 2:56 PM CDT) SPECIFIC GRAVITY 1.015 1.003 - 1.030 06/21/2023 3:29 PM CDT [facility] URINE PH 5.0 5.0 - 9.0 06/21/2023 3:29 PM CDT [facility] WBC ESTERASE Negative Negative 06/21/2023 3:29 PM CDT [facility] NITRITE Negative Negative 06/21/2023 3:29 PM CDT [facility] PROTEIN, RANDOM URINE Negative Negative 06/21/2023 3:29 PM CDT [facility] URINE GLUCOSE, QUAL 1000 mg/dL(A) Negative 06/21/2023 3:29 PM CDT [facility] URINE KETONES Negative Negative 06/21/2023 3:29 PM CDT [facility] UROBILINOGEN Normal Normal mg/dL 06/21/2023 3:29 PM CDT [facility] URINE BLOOD 25 /uL(A) Negative jolene/ul 06/21/2023 3:29 PM CDT [facility] URINALYSIS COLOR Yellow 06/21/20 3:29 PM CDT [facility] URINALYSIS CLARITY Clear 06/21/2023 3:29 PM CDT [facility] WBC (Urine) Negative Negative, 0-5 /hpf 06/21/2023 3:29 PM CDT [facility] URINE RBC'S 0-2 Negative, 0-2 /hpf 06/21/2023 3:29 PM CDT [facility] EPITHELIAL CELLS Negative /lpf 06/21/20 3:29 PM CDT [facility] BACTERIA, URINE Negative Negative /hpf 06/21/2023 3:29 PM CDT [facility] Urine URINE SPECIMEN COLLECTION, CLEAN CATCH / Unknown Non-Phlebotomy Collection / Unknown 06/21/2023 2:56 PM CDT 06/21/2023 3:14 PM CDT Oswaldo Serrano MD URINE ORDERABLES Final Resu lt Performing Organization Address City/[facility]/ZIP Co de Phone Number [facility] [address] [place] [address] * CULTURE, URINE (05/04/2023 7:01 AM CDT) CULTURE RESULTS MIXED GROWTH OF 3 OR MORE ORGANISMS, PROBABLE COLLECTION CONTAMINATION, SUGGEST REPEAT URINE CULTURE. 05/05/2023 4:49 PM CDT [facility] Culture URINE SPECIMEN COLLECTION, CLEAN CATCH / Unknown Non-Phlebotomy Collection / Unknown 05/04/2023 7:01 AM CDT 05/04/2023 7:01 AM CDT Oswaldo Serrano MD MICROBIOLOGY - [facility] Final Result Performing Organization Address City/[facility]/ZIP Co de Phone Number [facility] [address] [place] [address], documented in this encounter Visit Diagnoses Diagnosis Foul smelling urine- Primary Other nonspecific finding on examination of urine Chronic congestive heart failure, unspecified heart failure type (HCC) Systolic congestive heart failure, unspecified HF chronicity (HCC) Morbid obesity (HCC) Morbid obesity Vitamin D deficiency Unspecified vitamin D deficiency documented in this encounter Additional Health Concerns Assessment Noted Time PHQ-9 Depression Total Score: 0 10/14/19 23 11:00 AM OFFENSIVE COORDINATOR documented as of this encounter Care Teams Emergency Medical Technician/Driver Relationship Specialty Start Date End Date Oswaldo Serrano MD #[address] [address] PCP - General Family Medicine 05/19/17 Angel Crowe DPM #2 [facility] [place] [address] Consulting Physician Podiatry 06/16/17 Mora Fritz Behavioral Health Navigator 06/15/18 Ok Jorge MD #[address] [address] [address] Consulting Physician Endocrinology 05/12/22 Orlin Urbina APRN, DIRECT SUPPORT SPECIALIST #[address] [place] [address] Nurse Practitioner Advanced Practice Nurse 11/09/22 documented as of this encounter
--- OUTSIDE RECORDS SUMMARY | 2024-10-07 00:23 | XMS_ITS | Encounter Summary ---
Author Organization [facility] Care Team Providers Care Edge Plugger Name Role Phone Oswaldo Serrano MD Primary Care Provider [phone] Angel Crowe DPM Unavailable [phone] Mora Fritz Unavailable Unavailable Ok Jorge MD Unavailable Orlin Urbina APRN, GLASS MELT OPERATOR Unavailable [phone] Encounter Details Date Type Department Care Team (Latest Contact Info) Description 01/04/2023 Travel Social History Tobacco Use Types Packs/Day [...] st Contact Info) Description 10/08/2024 2:15 PM ENVIRONMENTAL RESOURCE SPECIALIST Office Visit [facility] #2 [place] [address] Orlin Urbina, FAST FOOD COOK, GLASS MELT OPERATOR [address] [place] [address] 10/18/2024 2:15 PM ENVIRONMENTAL RESOURCE SPECIALIST [facility] [address] [place] [address] Oswaldo Serrano MD #[address] [address] Discharge Disposition: Discharged to home or Selfcare 11/29/2024 2:30 PM ENVIRONMENTAL RESOURCE SPECIALIST Office [facility] [place] #2 [place] [address] Oswaldo Serrano MD #[address] [address] 11/30/2024 3:00 PM ENVIRONMENTAL RESOURCE SPECIALIST Office Visit [facility] [place] #[address] [place] [address] Ok Jorge MD #[address] [phone] documented as of this encounter Visit Diagnoses Not on filedocumented in this encounter Additional Health Concerns Assessment Noted Time PHQ-9 Depression Total Score: 0 01/05/20 23 11:00 AM ENVIRONMENTAL RESOURCE SPECIALIST documented as of this encounter Care Teams Edge Plugger Relationship Specialty Start Date End Date Oswaldo Serrano MD #2 [facility] [address] [place] [address] PCP - General Family Medicine 05/19/17 Angel Crowe DPM #2 [facility] [address] [place] [address] Consulting Physician Podiatry 06/16/[address] Behavioral Health Navigator 06/15/18 Ok Jorge MD #2 [facility] [address] [place] [address] Consulting Physician Endocrinology 05/12/22 Orlin Urbina, FAST FOOD COOK, GLASS MELT OPERATOR [address] [place] [address] Nurse Practitioner Advanced Practice Nurse 11/09/22 documented as of this encounter
--- OUTSIDE RECORDS SUMMARY | 2024-10-07 00:23 | XMS_ITS | Encounter Summary ---
Author Organization [facility] Address [address] [place] [address] Phone Care Team Providers Care Table Tender Name Role Phone Oswaldo Serrano MD Primary Care Provider [phone] Angel Crowe DPCiara Unavailable Mora Fritz Unavailable Unavailable Ok Jorge MD Unavailable Orlin Urbina APRN, QA AUTOMATION ARCHITECT Unavailable Reason for Visit * Reason Onset Date Comments Results 01/10/2023 Encounter Details Date Type Department Care Team (Late st Contact Info) Description 01/10/2023 Telephone [facility] [address] [place] [address] Oswaldo Serrano MD #[address] [address] Results Social History Tobacco Use Types Packs/Day [...] encounter Miscellaneous Notes * Telephone Encounter - Citlaly Alvarez RN - 01/10/2023 3:27 PM CDT Situation: Results Background: Patient's sister, Peg(on PRD), calling patient's PCP office and asking what urinalysis test results are. States that patient saw [facility] in [place] and the test was ordered last week. Assessment: RN reviewed chart- Orlin Urbina APRN with [facility] [place] ordered testing. Results are ready. Recommendation: Advised [place] to [facility] at [phone]. [place] states she will do this. documented in this encounter Plan of Treatment Upcoming Encounters Date Type Department Care Team (Late st Contact Info) Description 10/08/2024 2:15 PM TELEPHONE ASSEMBLER Office Visit [facility] #2 [place] [address] Orlin Urbina APRN, QA AUTOMATION ARCHITECT #2 [place] [address] 10/18/2024 2:15 PM TELEPHONE ASSEMBLER Appointment [facility] 1 [place] [address] Oswaldo Serrano MD #[address] [address] Discharge Disposition: Discharged to home or Selfcare 11/29/2024 2:30 PM TELEPHONE ASSEMBLER Office Visit [facility] #2 [place] [address] Oswaldo Serrano MD #[address] [address] 11/30/2024 3:00 PM TELEPHONE ASSEMBLER Office Visit [facility] #[address] [place] [address] Ok Jorge MD #[address] [address] documented as of this encounter Visit Diagnoses Not on filedocumented in this encounter Additional Health Concerns Assessment Noted Time PHQ-9 Depression Total Score: 0 10/14/19 23 11:00 AM TELEPHONE ASSEMBLER documented as of this encounter Care Teams Table Tender Relationship Specialty Start Date End Date Oswaldo Serrano MD #[address] [address] PCP - General Family Medicine 05/19/17 Angel Crowe DPM #[address] [address] Consulting Physician Podiatry 06/16/17 Mora Fritz DC Behavioral Health Navigator 06/15/18 Ok Jorge MD #[address] [address] Consulting Physician Endocrinology 05/12/22 Orlin Urbina APRN, QA AUTOMATION ARCHITECT #[address] [place] [address] Nurse Practitioner Advanced Practice Nurse 11/09/22 documented as of this encounter
--- OUTSIDE RECORDS SUMMARY | 2024-10-07 00:23 | XMS_ITS | Encounter Summary ---
Author Organization [facility] Address [address] [place] [address] Phone Care Team Providers Care Front Office Associate Name Role Phone Oswaldo Serrano MD Primary Care Provider [phone] Angel Crowe DPM Unavailable Mora Fritz Unavailable Unavailable Ok Jorge MD Unavailable Encounter Details Date Type Department Care Team (Late st Contact Info) Description 09/21/2022 Telephone [facility] - Family Medicine [facility] [address] [place] [address] Oswaldo Serrano MD #[address] [id number] Social History Tobacco Use Types Packs/Day Years Used Date Smoking Tobacco: Never Smokeless Tobacco: Never Alcohol Use Standard Drinks/Week Comments No 0 (1 standard drink = 0.6 oz pur e alcohol) PHQ-2 Answer Date Recorded Total Score - Questions 1-9 2 10/0 06/2020 Education Answer Date Recorded What is the [...] suspected to have Coronavirus/COVID-19? No / Unsure 09/28/2022 3:35 PM DRIVING SCHOOL INSTRUCTOR documented as of this encounter Miscellaneous Notes * Telephone Encounter - Oswaldo Serrano MD - 10/03/2022 3:27 PM DRIVING SCHOOL INSTRUCTOR DONE. ING SCHOOL INSTRUCTOR documented in this encounter Plan of Treatment Upcoming Encounters Date Type Department Care Team (Late st Contact Info) Description 10/08/2024 2:15 PM DRIVING SCHOOL INSTRUCTOR Office Visit [facility] #2 [place] [phone] Orlin Urbina, BATTERY CHECKER, GLASS EDGER [address] [place] [address] 10/18/2024 2:15 PM DRIVING SCHOOL INSTRUCTOR Appointment [facility] Mammography 1 [place] [phone] Oswaldo Serrano MD #[address] [address] Discharge Disposition: Discharged to home or Selfcare 11/29/2024 2:30 PM DRIVING SCHOOL INSTRUCTOR Office Visit [facility] - Family Medicine [facility] [address] [place] [phone] Oswaldo Serrano MD #[address] [address] 11/30/2024 3:00 PM DRIVING SCHOOL INSTRUCTOR Office Visit [facility] Endocr[facility] - [place] #2 [place] [address] Ok Jorge MD #[address] [address] documented as of this encounter Visit Diagnoses Diagnosis Abnormal mammogram- Primary Abnormal mammogram, unspecified documented in this encounter Additional Health Concerns Assessment Noted Time PHQ-9 Depression Total Score: 2 07/18/20 20 4:26 PM CDT documented as of this encounter Care Teams Front Office Associate Relationship Specialty Start Date End Date Oswaldo Serrano MD #[address] [address] PCP - General Family Medicine 05/19/17 Angel Crowe DPM #[address] [address] Consulting Physician Podiatry 06/16/17 Mora Fritz Behavioral Health Navigator 06/15/18 Ok Jorge MD #[address] [address] Consulting Physician Endocrinology 05/12/22 documented as of this encounter
--- OUTSIDE RECORDS SUMMARY | 2024-10-07 00:23 | XMS_ITS | Encounter Summary ---
Author Organization [facility] Address [address] [place] [address] Phone Care Team Providers Care Supply Chain Associate Name Role Phone Oswaldo Serrano MD Primary Care Provider [phone] Angel Crowe DPM Unavailable [phone] Mora Fritz Unavailable Unavailable Ok Jorge MD Unavailable Reason for Visit * Reason Onset Date Comments Patient Outreach 10/01/2022 Diabetic Eye Ex am Encounter Details Date Type Department Care Team (Late st Contact Info) Description 10/01/2022 Patient Outreach [facility] - Family [facility] #2 [place] [phone] Oswaldo Serrano MD #[address] [address] Patient Outreach (Diabetic Eye Exam ) Social History Tobacco Use Types Packs/Day Years Used Date Smoking Tobacco: Never Smokeless Tobacco: Never Alcohol Use Standard Drinks/Week Comments No 0 (1 standard drink = 0.6 oz pur e alcohol) PHQ-2 Answer Date Recorded Total Score - Questions 1-9 2 06/2020 Education Answer Date Recorded What is [...] Coronavirus/COVID-19? No / Unsure 09/28/2022 3:35 PM TIP BANDING MACHINE OPERATOR documented as of this encounter Miscellaneous Notes * Telephone Encounter - Sylvia Cain RMA - 10/01/2022 9:40 AM CST Reminder letter sent for diabetic eye exam. BANDING MACHINE OPERATOR documented in this encounter Plan of Treatment Upcoming Encounters Date Type Department Care Team (Late st Contact Info) Description 10/08/2024 2:15 PM TIP BANDING MACHINE OPERATOR Office Visit [facility] #2 [place] [phone] Orlin Urbina APRN, SOFTWARE QUALITY ASSURANCE ENGINEER #2 [place] [address] 10/18/2024 2:15 PM TIP BANDING MACHINE OPERATOR Appointment [facility] Mammography 1 [place] [phone] Oswaldo Serrano MD #[address] [address] Discharge Disposition: Discharged to home or Selfcare 11/29/2024 2:30 PM TIP BANDING MACHINE OPERATOR Office Visit [facility] - Family Medicine [facility] #2 [place] [address] Oswaldo Serrano MD #[address] [place] [address] 11/30/2024 3:00 PM TIP BANDING MACHINE OPERATOR Office Visit [facility] - [place] #2 [place] [address] Ok Jorge MD #[address] [place] [address] documented as of this encounter Visit Diagnoses Not on filedocumented in this encounter Additional Health Concerns Assessment Noted Time PHQ-9 Depression Total Score: 2 07/18/20 20 4:26 PM CDT documented as of this encounter Care Teams Supply Chain Associate Relationship Specialty Start Date End Date Oswaldo Serrano MD #[address] [address] PCP - General Family Medicine 05/19/17 Angel Crowe DPM #[address] [address] Consulting Physician Podiatry 06/16/17 Mora Fritz [place] Behavioral Health Navigator 06/15/18 Ok Jorge MD #[address] [place] [address] Consulting Physician Endocrinology 05/12/22 documented as of this encounter
--- OUTSIDE RECORDS SUMMARY | 2024-10-07 00:23 | XMS_ITS | Encounter Summary ---
Author Organization [facility] Address [address] [place] [address] Phone Care Team Providers Care Structural Steel Painter Name Role Phone Oswaldo Serrano MD Primary Care Provider [phone] Angel Crowe DPM Unavailable [phone] Mora Fritz Unavailable Unavailable Ok Jorge MD Unavailable Orlin Urbina APRN, DEPENDENCY DIRECTOR Unavailable [phone] Reason for Referral * Radiology Services (Routine) - Closed Specialty Diagnoses / Procedures Referred By Contac t Referred To Contact Radiology Diagnoses Screening for cervical cancer Type 2 diabetes mellitus with diabetic polyneuropathy, with long-term current use of insulin (HCC) Class 3 severe obesity due to excess calories with serious comorbidity and body mass index (BMI) of 45.0 to 49.9 in adult (HCC) Procedures SHABANA SCREENING BILATERAL DIGITAL W Jamison Ruiz MD #2 [place] [address] Phone: tel: fax: Referral ID Status Reason Start Date Expiration Date Visits Re quested Visits Authorized [id number] Closed 11/09/2022 1 1 HING ASSOCIATE Reason for Visit * Reason Comments New Patient Screening for cervic al cancer * Consult, Test & Initiate Treatment (Less Than 4 Weeks) - Closed Specialty Diagnoses / Procedures Referred By Contac t Referred To Contact Obstetrics & Gynecology Diagnoses Screening for cervical cancer Oswaldo Serrano MD #[address] [address] Phone: tel: fax: [facility] Obstetrics & Gynecology [facility] #2 [place] [address] Phone: tel: fax: Referral ID Status Reason Start Date Expiration Date Visits Re quested Visits Authorized [id number] Closed 10/14/2022 1 1 Encounter Details Date Type Department Care Team (Late st Contact Info) Description 11/09/2022 2:00 PM TEACHING ASSOCIATE Office Visit [facility] #2 [place] [address] Oswaldo Serrano MD #[address] [address] Jamison Hernández MD #[address] [place] [address] Encounter for well woman exam with routine gynecological exam (Primary Dx); Screening for cervical cancer; Traumatic brain injury with loss of consciousness, sequela (HCC); Type 2 diabetes mellitus with diabetic polyneuropathy, with long-term current use of insulin (HCC); Class 3 severe obesity due to excess calories with serious comorbidity and body mass index (BMI) of 45.0 to 49.9 in adult (HCC); Chronic congestive heart failure, unspecified heart failure type (HCC) Discharge Disposition: Discharged to home or [...] suspected to have Coronavirus/COVID-19? No / Unsure 11/09/2022 1:15 PM TEACHING ASSOCIATE documented as of this encounter Last Filed Vital Signs Vital Sign Reading Time Taken Comments Blood Pressure 118/78 11/09/2022 2:20 PM TEACHING ASSOCIATE Pulse 78 11/09/2022 2:20 PM TEACHING ASSOCIATE Temperature 36.6 ??C (97.8 ??F) 11/09/2022 2:20 PM CS T Respiratory Rate 18 11/09/2022 2:20 PM TEACHING ASSOCIATE Oxygen Saturation 98% 11/09/2022 2:20 PM TEACHING ASSOCIATE Inhaled Oxygen Concentration - - Weight 133.9 kg (295 lb 3.2 oz) 11/09/2022 2:20 PM TEACHING ASSOCIATE Height - - Body Mass Index 49.12 11/09/2022 1:25 PM TEACHING ASSOCIATE documented in this encounter Progress Notes * Jamison Hernández MD - 11/09/2022 2:00 PM CST Pt is a 61 year old here for her annual and pap is due, last done in 2017. She has had normal paps and did see Urology for questionable UTI. She had a TBI in the past and has many co-morbidities which are reviewed. She is with her sister today. She has nocturnal enuresis and OAB also. She has HTN, HF and DM for which she sees Dr. Jorge. Review of Systems - A 14 point comprehensive review of systems was negative, except as documented in HPI. Past Medical History Positives Diagnosis Date ??? Atrial fibrillation and flutter (HCC) ??? CHF, chronic (HCC) ??? Diabetes mellitus (HCC) ??? Hepatitis C ??? Hypertension ??? Pacemaker Past Surgical History: Procedure Laterality Date ??? APPENDECTOMY ??? APPENDECTOMY ??? HC DEFIB CARD RESYNCHRONIZATION 1/DF4 IS4 EA/1 ??? TOOTH EXTRACTION All of her teeth ??? WISDOM TOOTH EXTRACTION Current Outpatient Medications Medication Sig Dispense Refill ??? albuterol 108 (90 Base) MCG/ACT Aerosol Solution take 1-2 Puffs by inhalation every 4 hours as needed for Cough. 1 g 0 ??? Blood Glucose Monitoring Suppl Device Test blood glucose 4 times daily. E11.9, insulin dependent 1 Each 0 ??? carvedilol (COREG) 25 MG Tablet 25 mg 2 times daily. ??? Continuous Blood Gluc Sensor (Dexcom G6 Sensor) Misc ??? Continuous Blood Gluc Transmit (Dexcom G6 Transmitter) Misc ??? Cyanocobalamin (B-12) 500 MCG Tablet Take 1 Tablet by mouth daily. 90 Tablet 2 ??? Dapagliflozin Propanediol (Farxiga) 10 MG Tablet Take by mouth. ??? dilTIAZem (CARDIZEM) 30 MG Tablet TK 1 T PO TID 0 ??? docusate sodium (COLACE) 100 MG Capsule TAKE ONE CAPSULE BY MOUTH TWICE DAILY 60 Capsule 2 ??? Entresto 24-26 MG Tablet ??? escitalopram (LEXAPRO) 10 MG Tablet TAKE ONE TABLET BY MOUTH EVERY DAY 90 Tablet 1 ??? furosemide (LASIX) 40 MG Tablet Take 1 Tablet by mouth daily. 90 Tablet 2 ??? Glucose Blood (True Metrix Blood Glucose Test) Strip TEST USING ONE STRIP FOUR TIMES DAILY 400 Each 3 ??? insulin glargine (Basaglar KwikPen) 100 UNIT/ML Solution Pen-injector 17 Units by Subcutaneous route every morning. 15 mL 1 ??? Insulin Pen Needle (PEN NEEDLES 31GX5/16 ) 31G X 8 MM Misc Use to inject insulin 4x daily. 400 Each 3 ??? Insulin Syringe-Needle U-100 (TRUEPLUS INSULIN SYRINGE) 31G X 5/16 0.5 ML Misc USE 4 TIMES DAILY 400 Each 3 ??? Lancets Misc Test four times daily. E11.9, insulin dependent 400 Lancet 3 ??? levothyroxine (SYNTHROID) 50 MCG Tablet TAKE ONE TABLET BY MOUTH EVERY MORNING 90 Tablet 2 ??? Myrbetriq 50 MG TABLET SR 24 HR Take 50 mg by mouth daily. 30 Tablet 0 ??? nortriptyline (PAMELOR) 10 MG Capsule TAKE ONE CAPSULE BY MOUTH ONE TIME DAILY IN THE EVENING 90 Capsule 1 ??? NovoLOG FlexPen 100 UNIT/ML Solution Pen-injector INJECT 18 UNITS AT BREAKFAST, 18 UNITS AT LUNCH AND 14 UNITS AT DINNER -- ISF OF 1:30 IF GREATER THAN 140MG/DL UP TO 70 UNITS PER DAY 75 mL 1 ??? omeprazole (PriLOSEC) 20 MG CAPSULE DELAYED RELEASE TAKE ONE CAPSULE BY MOUTH EVERY DAY 90 Capsule 1 ??? potassium chloride SA (KLORCON M) 20 MEQ Tablet Controlled Release Take 1 Tablet by mouth daily. 90 Tablet 3 ??? rivaroxaban (Xarelto) 20 MG Tablet Take 20 mg by mouth daily (with dinner). Take with food. No current facility-administered medications for this visit. PE CV:rrr LUNGS: ctab AB: soft,nt, +bs EX: no edema Pelvic exam: normal external genitalia, vulva, vagina, cervix, uterus and adnexa, VULVA: normal appearing vulva with no masses, tenderness or lesions, VAGINA: normal appearing vagina with normal color and discharge, no lesions, CERVIX: normal appearing cervix without discharge or lesions, UTERUS: uterus is normal size, shape, consistency and nontender, ADNEXA: normal adnexa in size, nontender andno masses, RECTAL: normal rectal, no masses, PAP: Pap smear done today, exam chaperoned by SHAWN. A/P: Normal exam. Doing well. Pap done and pelvic exam. Mammogram is due and we will order this today. Reviewed her care with her and her sister, she does not need paps after today given the normals andher age. Doing well. OAB-sees Home for this. +supine stress test today on moving down table. HING ASSOCIATE documented in this encounter Plan of Treatment Upcoming Encounters Date Type Department Care Team (Late st Contact Info) Description 10/08/2024 2:15 PM TEACHING ASSOCIATE Office Visit [facility] #2 [place] [phone] Orlin Urbina APRN, DEPENDENCY DIRECTOR #2 [place] [address] 10/18/2024 2:15 PM TEACHING ASSOCIATE Appointment [facility] Mammography 1 [place] [phone] Oswaldo Serrano MD #2 [facility] [address] [place] [address] Discharge Disposition: Discharged to home or Selfcare 11/29/2024 2:30 PM TEACHING ASSOCIATE Office Visit [facility] - [place] #2 [place] [address] Oswaldo Serrano MD #[address] [address] 11/30/2024 3:00 PM TEACHING ASSOCIATE Office Visit [facility] - [place] #2 [place] [phone] Ok Jorge MD #[address] [address] Scheduled Orders Name Type Priority Associated Diagnoses Orde r Schedule SHABANA SCREENING BILATERAL DIGITAL W CAD Imaging Routine Screening for cervical cancer Type 2 diabetes mellitus with diabetic polyneuropathy, with long-term current use of insulin ([facility]) Class 3 severe obesity due to excess calories with serious comorbidity and body mass index (BMI) of 45.0 to 49.9 in adult ([facility]) Expected: 12/07/2022, Expires: 02/06/2023 documented as of this encounter Procedures Procedure Name Priority Date/Time Associated Diagnosis Comments PATHOLOGY CYTOLOGY COMPUTER INSTALLER Routine 11/09/2022 3:06 PM TEACHING ASSOCIATE Encounter for well woman exam with routine gynecological exam documented in this encounter Results * PATHOLOGY CYTOLOGY COMPUTER INSTALLER (11/09/2022 3:06 PM TEACHING ASSOCIATE) SPECIMEN ADEQUACY Satisfactory for evaluation. Endocervical/transf ormation zone component is absent. 11/18/2022 10:47 AM [facility] DESCRIPTIVE DIAGNOSIS NEGATIVE FOR INTRAEPITHELIAL LESIONS OR MALIGNANCY. 11/18/2022 10:47 AM [facility] Reflex if ASCUS? Yes 11/18/2022 10:47 AM [facility] Automated Examination Analysis of this sample has been assisted by an automated imaging and review system ([employer] System, [employer], [place], [place]). This case is further evaluated and finalized by a rotary engine assembler and/or pathologist. 11/18/2022 10:47 AM [facility] Disclaimer The PAP smear is a screening [...] 66 unless clinically indicated. 11/18/2022 10:47 AM [facility] Other (Cervix/Endocerv ix) Non-Phlebotomy Collection / Unknown 11/09/2022 3:06 PM TEACHING ASSOCIATE 11/09/2022 3:06 PM TEACHING ASSOCIATE us Jamison Hernández MD PATHOLOGY/CYTOLOGY ORDERABLES Final Result [facility] [address] [place] [address], documented in this encounter Visit Diagnoses Diagnosis Encounter for well woman exam with routine gynecological exam- Primary Screening for cervical cancer Screening for malignant neoplasm of the cervix Traumatic brain injury with loss of consciousness, sequela (HCC) Type 2 diabetes mellitus with diabetic polyneuropathy, with long-term current use of insulin (HCC) Class 3 severe obesity due to excess calories with serious comorbidity and body mass index (BMI) of 45.0 to 49.9 in adult (HCC) Chronic congestive heart failure, unspecified heart failure type (HCC) documented in this encounter Additional Health Concerns Assessment Noted Time PHQ-9 Depression Total Score: 0 10/14/19 23 11:00 AM TEACHING ASSOCIATE documented as of this encounter Care Teams Structural Steel Painter Relationship Specialty Start Date End Date Oswaldo Serrano MD #2 [facility] [address] [place] [address] PCP - General Family Medicine 05/19/17 Angel Crowe DPM #2 [facility] [address] [place] [address] Consulting Physician Podiatry 06/16/17 Mora Fritz Behavioral Health Navigator 06/15/18 Ok Jorge MD #2 [facility] [address] [place] [address] Consulting Physician Endocrinology 05/12/22 Orlin Urbina APRN, DEPENDENCY DIRECTOR #2 [place] [address] Nurse Practitioner Advanced Practice Nurse 11/09/22 documented as of this encounter
--- OUTSIDE RECORDS SUMMARY | 2024-10-07 00:23 | XMS_ITS | Encounter Summary ---
Author Organization [facility] Address [address] [place] [address] Phone Care Team Providers Care Estate Planning Paralegal Name Role Phone Oswaldo Serrano MD Primary Care Provider [phone] Angel Crowe DPCiara Unavailable [phone] Mora Fritz Unavailable Unavailable Ok Jorge MD Unavailable Orlin Urbina APRN, SUBSTATION ELECTRICIAN SUPERVISOR Unavailable + [phone] Reason for Referral * Radiology Services (Routine) - Closed Specialty Diagnoses / Procedures Referred By Praful t Referred To Contact Radiology Diagnoses Left flank pain Left lateral abdominal pain Microscopic hematuria Abnormal urinalysis Procedures CT RENAL STONE STUDY (ABDOMEN AND PELVIS W/O CONTRAST) Orlin Urbina APRN, SUBSTATION ELECTRICIAN SUPERVISOR [address] [place] [address] Phone: tel: fax: Referral ID Status Reason Start Date Expiration Date Visits Re quested Visits Authorized [id number] Closed 01/04/2023 1 1 Reason for Visit * Reason Comments Follow-up 2month Overactive Bladder Encounter Details Date Type Department Care Team (Late st Contact Info) Description 01/04/2023 2:30 PM CDT Office Visit [facility] #2 [place] [address] Orlin Urbina APRN, SUBSTATION ELECTRICIAN SUPERVISOR [address] [place] [address] OAB (overactive bladder) (Primary Dx); Left flank pain; Left lateral abdominal pain; Microscopic hematuria; Abnormal urinalysis; UTI due to Klebsiella species Discharge Disposition: Discharged to home or Selfcare [...] Sign Reading Time Taken Comments Blood Pressure 126/82 01/04/2023 2:42 PM CDT Pulse 89 01/04/2023 2:42 PM CDT Temperature 36.3 ??C (97.3 ??F) 01/04/2023 2:42 PM CD T Respiratory Rate 20 01/04/2023 2:42 PM CDT Oxygen Saturation 96% 01/04/2023 2:42 PM CDT Inhaled Oxygen Concentration - - Weight 131.5 kg (290 lb) 01/04/2023 2:42 PM CDT Height 165.1 cm (5' 5 ) 01/04/2023 2:42 PM CDT Body Mass Index 48.26 01/04/2023 2:42 PM CDT documented in this encounter Progress Notes * Orlin Urbina, JOHN, YUDI - 01/04/2023 2:30 PM CDT UROLOGY [facility] [address] [facility], [address] [place] [address] PHONE: FAX: Assessment & Plan Left abdominal pain-will send urine for culture to check for urinary tract infection. CT abdomen pelvis given microscopic blood on urine dip and left-sided abdominal pain to rule in/out ureteral stone. Call patient with results. Overactive bladder-minimal improvement with Myrbetriq. Would like to avoid anticholinergics due to Beers criteria and episodes of forgetfulness. Will give trial of trospium as it does not cross the blood-brain barrier. Medication administration, use, side effects discussed. Patient to follow-up in 6 weeks. She is not interested in physical therapy. Subjective: 11/09/2022 HPI: HPI: Loretta Penn presents [...] shows some microscopic blood on urine dip. The following portions of the patient's chart [...] dizziness and weakness. Objective: Vital signs: BP 126/82 Pulse 89 Temp 97.3 ??F (36.3 ??C) (Temporal) Resp 20 Ht 5' 5 (1.651m) Wt 290 lb (131.5 kg) LMP (LMP Unknown) SpO2 96% BMI 48.26 kg/m?? There were no vitals filed for [...] URETHRA CONTAMINANTS. Final Susceptibility Klebsiella pneumoniae - [facility] VITEK II Ampicillin/sulbactam Susceptible mcg/ml Cefazolin Susceptible [...] (overactive bladder) - POCT UA AUTOMATED W/O MICRO; Standing - POCT UA AUTOMATED W/O MICRO - trospium (SANCTURA) 20 MG Tablet; Take 1 Tablet by mouth in the morning and at bedtime. Left flank pain - CT RENAL STONE STUDY (ABDOMEN AND PELVIS W/O CONTRAST); Future Left lateral abdominal pain - CT RENAL STONE STUDY (ABDOMEN AND PELVIS W/O CONTRAST); Future Microscopic hematuria - CT RENAL STONE STUDY (ABDOMEN AND PELVIS W/O CONTRAST); Future Abnormal urinalysis - CT RENAL STONE STUDY (ABDOMEN AND PELVIS W/O CONTRAST); Future - CULTURE, URINE UTI due to Klebsiella species - cefdinir (OMNICEF) 300 MG Capsule; Take 2 Capsules by mouth daily for 7 days. By: Orlin Urbina APRN, CNP, 03/08/2023, 10:21 AM CDT Primary Care Physician: Oswaldo Serrano MD documented in this encounter Plan of Treatment Upcoming Encounters Date Type Department Care Team (Late st Contact Info) Description 10/08/2024 2:15 PM CODING TECHNICIAN Office Visit [facility] [address] [place] [address] Orlin Urbina APRN, SUBSTATION ELECTRICIAN SUPERVISOR [address] [place] [address] 10/18/2024 2:15 PM CODING TECHNICIAN [facility]ointment [facility] 1 [place] [address] Oswaldo Serrano MD #[address] [address] Discharge Disposition: Discharged to home or Selfcare 11/29/2024 2:30 PM CODING TECHNICIAN [facility] [address]2 [place] [address] Oswaldo Serrano MD #[address] [address] 11/30/2024 3:00 PM CODING TECHNICIAN [facility] Visit [facility] - Endocrinology [facility] #[address] [place] [address] Ok Jorge MD #[address] [address] Scheduled Orders Name Type Priority Associated Diagnoses Orde r Schedule POCT UA AUTOMATED W/O MICRO Point of Care Testing (manual) Routine OAB (overactive bladder) 12 Occurrences starting 01/04/2023 until 01/05/2024, [address] RENAL STONE STUDY (ABDOMEN AND PELVIS W/O CONTRAST) Imaging Routine Left flank pain Left lateral abdominal pain Microscopic hematuria Abnormal urinalysis Expected: 01/05/2023, Expires: 07/07/2023 documented as of this encounter Procedures Procedure Name Priority Date/Time Associated Diagnosis Comments CULTURE, URINE Routine 01/04/2023 3:28 PM CDT Abnormal urinalysis POCT UA AUTOMATED W/O MICRO Routine 01/04/2023 2:48 PM CDT OAB (overactive bladder) documented in this encounter Results * CULTURE, URINE (01/04/2023 3:28 PM CDT) CULTURE RESULTS KLEBSIELLA PNEUMONIAE 01/07/2023 4:18 PM CDT [facility] CULTURE RESULTS GRAM-NEGATIVE BACILLUS 01/07/2023 4:18 PM CDT [facility] Comment:NO FURTHER WORKUP PE RFORMED CULTURE RESULTS ALSO MIXED GROWTH OF DISTAL URETHRA CONTAMINANTS. 01/07/2023 4:18 PM CDT [facility] Culture URINE SPECIMEN COLLECTION, CLEAN CATCH / Unknown Non-Phlebotomy Collection / Unknown 01/04/2023 3:28 PM CDT 01/04/2023 3:28 PM CDT Narrative Organism Antibiotic Method Susceptibility Klebsiella pneumoniae Ampicillin/sulbactam [facility] VITEK II 8 mcg/ml: Susceptible Klebsiella pneumoniae Cefazolin [facility] VITEK II <=4 mcg/ml: Susceptible Klebsiella pneumoniae Cefepime [facility] V[facility]K II <=1 mcg/ml: Susceptible Klebsiella pneumoniae Ceftriaxone [facility] II <=1 mcg/ml: Susceptible Klebsiella pneumoniae Gentamicin [facility] II <=1 mcg/ml: Susceptible Klebsiella pneumoniae Levofloxacin [facility] II <=0.12 mcg/ml: Susceptible Klebsiella pneumoniae Meropenem [facility] V[facility]K II <=0.25 mcg/ml: Susceptible Klebsiella pneumoniae Nitrofurantoin [facility] V[facility] II 64 mcg/ml: Intermediate Klebsiella pneumoniae Piperacillin/Tazobactam [facility] VIT EK II <=4 mcg/ml: Susceptible Klebsiella pneumoniae Tobramycin [facility] VITEK II <=1 mcg/ml: Susceptible Klebsiella pneumoniae Trimeth/Sulfamethoxazole [facility] AKI II <=20 mcg/ml: Susceptible us Orlin Urbina SATELLITE TV INSTALLER, SUBSTATION ELECTRICIAN SUPERVISOR MICROBIOLOGY - GENERAL ORDERABLES Final Result [facility] [address] [facility] [place] [address], * (ABNORMAL) POCT UA AUTOMATED W/O MICRO (01/04/2023 2:48 PM CDT) POC UA SPECIFIC GRAVITY 1.015 [...] COLOR Yellow POC URINE CLARITY Clear Urine 01/04/2023 2:48 PM CDT Orlin Urbina SATELLITE TV INSTALLER, SUBSTATION ELECTRICIAN SUPERVISOR POINT OF CARE TESTING (MANUAL) Final Result documented in this encounter Visit Diagnoses Diagnosis OAB (overactive bladder)- Primary Hypertonicity of bladder Left flank pain Abdominal pain, unspecified site Left lateral abdominal pain Abdominal pain, unspecified site Microscopic hematuria Abnormal urinalysis Other nonspecific finding on examination of urine UTI due to Klebsiella species documented in this encounter Additional Health Concerns Assessment Noted Time PHQ-9 Depression Total Score: 0 10/14/19 23 11:00 AM CODING TECHNICIAN documented as of this encounter Care Teams Estate Planning Paralegal Relationship Specialty Start Date End Date Oswaldo Serrano MD #2 [facility] [address] [place] [address] PCP - General Family Medicine 05/19/17 Angel Crowe DPM #2 [facility] [address] [place] [address] Consulting Physician Podiatry 06/16/17 Mora Fritz Behavioral Health Navigator 06/15/18 Ok Jorge MD #2 [facility] [address] [place] [phone] Consulting Physician Endocrinology 05/12/22 Orlin Urbina, SATELLITE TV INSTALLER, SUBSTATION ELECTRICIAN SUPERVISOR [address] [place] [address] Nurse Practitioner Advanced Practice Nurse 11/09/22 documented as of this encounter
--- OUTSIDE RECORDS SUMMARY | 2024-10-07 00:23 | XMS_ITS | Encounter Summary ---
Author Organization [facility] Care Team Providers Care Drywall Sander Name Role Phone Oswaldo Serrano MD Primary Care Provider [phone] Angel Crowe DPM Unavailable [phone] Mora Fritz Unavailable Unavailable Ok Jorge MD Unavailable Encounter Details Date Type Department Care Team (Latest Contact Info) Description 08/26/2022 Travel Social History Tobacco Use Types Packs/Day [...] suspected to have Coronavirus/COVID-19? No / Unsure 08/26/2022 1:55 PM DRENCHER documented as of this encounter Plan of Treatment Upcoming Encounters Date Type Department Care Team (Late st Contact Info) Description 10/08/2024 2:15 PM DRENCHER Office Visit [facility] #2 [place] [address] Olrin Urbina, ADULT SCHOOL TEACHER, CRYPTOLOGICAL TECHNICIAN [address] [place] [address] 10/18/2024 2:15 PM DRENCHER [facility] 1 [place] [address] Oswaldo Serrano MD #2 [facility] [address] [place] [address] Discharge Disposition: Discharged to home or Selfcare 11/29/2024 2:30 PM DRENCHER [facility] - [place] #2 [place] [address] Oswaldo Serrano MD #2 [facility] [address] [place] [address] 11/30/2024 3:00 PM DRENCHER Office Visit [facility] - [place] #2 [place] [address] Ok Jorge MD #2 [facility] [address] [place] [address] documented as of this encounter Visit Diagnoses Not on filedocumented in this encounter Additional Health Concerns Assessment Noted Time PHQ-9 Depression Total Score: 2 07/18/20 20 4:26 PM CDT documented as of this encounter Care Teams Drywall Sander Relationship Specialty Start Date End Date Oswaldo Serrano MD #2 [facility] [address] [place] [address] PCP - General Family Medicine 05/19/17 Angel Crowe DPM #2 [facility] [address] [place] [address] Consulting Physician Podiatry 06/16/17 Mora Fritz Behavioral Health Navigator 06/15/18 Ok Jorge MD #2 [facility] [address] [place] [address] Consulting Physician Endocrinology 05/12/22 documented as of this encounter
--- OUTSIDE RECORDS SUMMARY | 2024-10-07 00:23 | XMS_ITS | Encounter Summary ---
Author Organization [facility] Address [address] [place] [address] Phone Care Team Providers Care Programmer Analyst Consultant Name Role Phone Oswaldo Serrano MD Primary Care Provider [phone] Angel Crowe DPM Unavailable Mora Fritz Unavailable Unavailable Ok Jorge MD Unavailable Reason for Visit * Reason Comments Medication Refill Encounter Details Date Type Department Care Team (Late st Contact Info) Description 10/13/2022 [facility]ill [facility] #2 [place] [address] Oswaldo Serrano MD #[address] [address] Medication Refill Social History Tobacco Use Types [...] Coronavirus/COVID-19? No / Unsure 09/28/2022 3:35 PM CANAL STRUCTURE OPERATOR documented as of this encounter Miscellaneous Notes * Telephone Encounter - Zainab Roblero RN - 10/14/2022 8:23 AM CST Medication(s) refilled and signed per [facility] Chronic Medication Refill Standing Order for Pediatricand Adult Patients. Requested Prescriptions Pending Prescriptions Disp Refills ??? omeprazole (PriLOSEC) 20 MG CAPSULE DELAYED RELEASE [Pharmacy Med Name: OMEPRAZOLE 20MG] 90 Capsule 1 Sig: TAKE ONE CAPSULE BY MOUTH EVERY DAY Proton Pump Inhibitors Protocol Passed - 10/13/2022 4:59 PM Passed - Visit with relevant provider in past 12 months or upcoming 90 days Recent Visits Date Type Provider Dept 08/26/22 Office Visit Connor Yuan APRN, CNP [facility] 05/25/22 Office Visit Tom Quach MD [facility] 01/05/22 Office Visit Oswaldo Serrano MD [facility] Showing recent visits within past 365 days and meeting all other requirements Today's Visits Date Type Provider Dept 10/14/22 Appointment Oswaldo Serrano MD [facility] Showing today's visits and meeting all other requirements Future Appointments No visits were found meeting these conditions. Showing future appointments within next 90 days and meeting all other requirements L STRUCTURE OPERATOR documented in this encounter Plan of Treatment Upcoming Encounters Date Type Department Care Team (Late st Contact Info) Description 10/08/2024 2:15 PM CANAL STRUCTURE OPERATOR Office Visit [facility] #2 [place] [address] Orlin Urbina PROCESSING ASSOCIATE, OPERATING ROOM RN #2 [place] [address] 10/18/2024 2:15 PM CANAL STRUCTURE OPERATOR [facility] 1 [place] [phone] Oswaldo Serrano MD #[address] [address] Discharge Disposition: Discharged to home or Selfcare 11/29/2024 2:30 PM CANAL STRUCTURE OPERATOR [facility] - [place] #2 [place] [address] Oswaldo Serrano MD #[address] [address] 11/30/2024 3:00 PM CANAL STRUCTURE OPERATOR Office Visit [facility] - [place] #2 [place] [address] Ok Jorge MD #[address] [address] documented as of this encounter Visit Diagnoses Not on filedocumented in this encounter Additional Health Concerns Assessment Noted Time PHQ-9 Depression Total Score: 2 07/18/20 20 4:26 PM CDT documented as of this encounter Care Teams Programmer Analyst Consultant Relationship Specialty Start Date End Date Oswaldo Serrano MD #[address] [address] PCP - General Family Medicine 05/19/17 Angel Crowe DPM #2 [facility] [address] [place] [address] Consulting Physician Podiatry 06/16/17 Mora Fritz Behavioral Health Navigator 06/15/18 Ok Jorge MD #2 [facility] [address] [place] [address] Consulting Physician Endocrinology 05/12/22 documented as of this encounter
--- OUTSIDE RECORDS SUMMARY | 2024-10-07 00:23 | XMS_ITS | Encounter Summary ---
Author Organization [facility] Care Team Providers Care Chief Inspector Name Role Phone Oswaldo Serrano MD Primary Care Provider [phone] Angel Crowe DPM Unavailable [phone] Mora Fritz Unavailable Unavailable Ok Jorge MD Unavailable Orlin Urbina APRN, COMMERCIAL HELICOPTER PILOT Unavailable + [phone] Encounter Details Date Type Department Care Team (Latest Contact Info) Description 11/25/2022 Travel Social History Tobacco Use Types Packs/Day [...] suspected to have Coronavirus/COVID-19? No / Unsure 11/25/2022 12:13 PM GEOMETRY TUTOR documented as of this encounter Plan of Treatment Upcoming Encounters Date Type Department Care Team (Late st Contact Info) Description 10/08/2024 2:15 PM GEOMETRY TUTOR Office Visit [facility] #2 [place] [phone] Orlin Urbina, MANAGER MSW, COMMERCIAL HELICOPTER PILOT #2 [place] [address] 10/18/2024 2:15 PM GEOMETRY TUTOR [facility] 1 [place] [address] Oswaldo Serrano MD #[address] [address] Discharge Disposition: Discharged to home or Selfcare 11/29/2024 2:30 PM GEOMETRY TUTOR Office Visit [facility] - [place] #2 [place] [address] Oswaldo Serrano MD #[address] [address] 11/30/2024 3:00 PM GEOMETRY TUTOR Office Visit [facility] - End[facility]ology - [place] #2 [place] [address] Ok Jorge MD #[address] [phone] documented as of this encounter Visit Diagnoses Not on filedocumented in this encounter Additional Health Concerns Assessment Noted Time PHQ-9 Depression Total Score: 0 10/14/19 11:00 AM GEOMETRY TUTOR documented as of this encounter Care Teams Chief Inspector Relationship Specialty Start Date End Date Oswaldo Serrano MD #2 [facility] [address] [place] [address] PCP - General Family Medicine 05/19/17 Angel Crowe DPM #2 [facility] [address] [place] [address] Consulting Physician Podiatry 06/16/17 Mora Fritz [place] Behavioral Health Navigator 06/15/18 Ok Jorge MD #2 [facility] [address] [place] [address] Consulting Physician Endocrinology 05/12/22 Orlin Urbina, MANAGER MSW, COMMERCIAL HELICOPTER PILOT #2 [place] [address] Nurse Practitioner Advanced Practice Nurse 11/09/22 documented as of this encounter
--- OUTSIDE RECORDS SUMMARY | 2024-10-07 00:23 | XMS_ITS | Encounter Summary ---
Author Organization [facility] Address [address] [place] [address] Phone Care Team Providers Care Dry Goods Clerk Name Role Phone Oswaldo Serrano MD Primary Care Provider [phone] Angel Crowe DPM Unavailable [phone] Mora Fritz Unavailable Unavailable Ok Jorge MD Unavailable Orlin Urbina APRN, UTILITY WORKER DRIVER Unavailable + [phone] Reason for Referral * PT/OT/ST (Routine) - Canceled Specialty Diagnoses / Procedures Referred By Contac t Referred To Contact Rehabilitation Diagnoses OAB (overactive bladder) Urinary incontinence, urge Orlin Urbina APRN, UTILITY WORKER DRIVER [address] [place] [address] Phone: tel: fax: [facility] [address], [place] [address] [address] Phone: tel: fax: Referral ID Status Reason Start Date Expiration Date V isits Requested Visits Authorized [id number] Canceled 11/09/2022 1 1 Scheduling Instructions Loretta is being referred for pelvic floor physical therapy. Please contact patient and sister for scheduling questions or concerns. M ENGINEER Reason for Visit * Reason Comments Follow-up Over active bladder Encounter Details Date Type Department Care Team (Late st Contact Info) Description 11/09/2022 1:15 PM STEAM ENGINEER Office Visit [facility] UROLOGY #2 [place] [address] Orlin Urbina APRN, YUDI [address]2 [place] [address] OAB (overactive bladder) (Primary Dx); Urinary incontinence, [...] Coronavirus/COVID-19? No / Unsure 11/09/2022 1:15 PM STEAM ENGINEER documented as of this encounter Last Filed Vital Signs Vital Sign Reading Time Taken Comments Blood Pressure 118/78 11/09/2022 1:25 PM STEAM ENGINEER Pulse 81 11/09/2022 1:25 PM STEAM ENGINEER Temperature 36.2 ??C (97.1 ??F) 11/09/2022 1:25 PM CS T Respiratory Rate 17 11/09/2022 1:25 PM STEAM ENGINEER Oxygen Saturation 98% 11/09/2022 1:25 PM STEAM ENGINEER Inhaled Oxygen Concentration - - Weight 133.8 kg (295 lb) 11/09/2022 1:25 PM STEAM ENGINEER Height 165.1 cm (5' 5 ) 11/09/2022 1:25 PM STEAM ENGINEER Body Mass Index 49.09 11/09/2022 1:25 PM STEAM ENGINEER documented in this encounter Progress Notes * Orlin Urbina, BLOCK SEALER, UTILITY WORKER DRIVER - 11/09/2022 1:15 PM CST UROLOGY [facility] 2 [facility], [address] [place] [address] PHONE: FAX: Assessment & Plan OAB- Online order filled out for [facility] for refill on incontinence products. States that there needing more pads/depends per month she is running out about a week before the end of the month. We discussed treatment options of pelvic floor physical therapy or trial of a different medication. Anticholinergics should be avoided due to cognitive side effects and Beers criteria. States that they just refilled Motegrity. Will consider trial of trospium since it does not cross the blood-brain barrier decreasing risk of cognitive side effects. Patient call when she has 1 week of Myrbetriq left and will go ahead and sent prescription for trospium. Patient to follow-up 4 weeks after starting trospium. We had long discussion about pelvic floor physical therapy and its use in conjunction with medications. Patient reports that she is willing to go to 1 visit to see if this will be an option for her. Subjective: 11/09/2022 HPI: HPI: Loretta Penn presents [...] of incontinence. UA-negative for blood or infection The following portions of the patient's chart were reviewed in this encounter and updated as appropriate: Tobacco Allergies Med Hx Surg Hx Fam Hx Soc Hx ROS: Review of Systems Constitutional: Negative for chills and fever. Respiratory: Negative for cough and shortness of breath. Cardiovascular: Negative for chest pain and palpitations. Gastrointestinal: Negative for abdominal pain, diarrhea, nausea and vomiting. Genitourinary: Positive for frequency and urgency. Negative for dysuria, flank pain and hematuria. Incontinence Musculoskeletal: Negative for myalgias. Neurological: Negative for dizziness and weakness. Objective: Vital signs: BP 118/78 (BP Location: Right Arm, BP Position: Sitting) Pulse 81 Temp 97.1 ??F (36.2 ??C) Resp 17 Ht 5' 5 (1.651 m) Wt 295 lb (133.8 kg) LMP (LMP Unknown) SpO2 98% BMI 49.09 kg/m?? There were no vitals filed for [...] Result Value Ref Range Status CULTURE RESULTS 40,000 CFU/ML Klebsiella pneumoniae Final CULTURE RESULTS ALSO MIXED GROWTH OF DISTAL URETHRA CONTAMINANTS. Final Susceptibility Klebsiella pneumoniae - [facility] II Ampicillin/sulbactam Susceptible mcg/ml Cefazolin [...] 365 days. Loretta was seen today for follow-up. Diagnoses and all orders for this visit: OAB (overactive bladder) - POCT UA AUTOMATED W/O MICRO Other orders The following orders have not been finalized: - Incontinence Supply Disposable ([facility] Incontinence Pads) Misc - Incontinence Supply Disposable (Comfort Shield Adult Diapers) Misc By: Orlin Urbina APRN, CNP, 11/09/2022, 2:36 PM STEAM ENGINEER Primary Care Physician: Oswaldo Serrano MD M ENGINEER documented in this encounter Plan of Treatment Upcoming Encounters Date Type Department Care Team (Late st Contact Info) Description 10/08/2024 2:15 PM STEAM ENGINEER Office Visit [facility] UR[facility] #2 [place] [address] Orlin Urbina APRN, CNP [address]2 [place] [address] 10/18/2024 2:15 PM STEAM ENGINEER Appointment [facility] Mammography 1 [place] [address] Oswaldo Serrano MD #2 [facility] [address] [place] [address] Discharge Disposition: Discharged to home or Selfcare 11/29/2024 2:30 PM STEAM ENGINEER Office Visit [facility] Medical [facility] - Family Medicine - [place] [address] [place] [address] Oswaldo Serrano MD #2 [facility] [address] [place] [address] 11/30/2024 3:00 PM STEAM ENGINEER Office Visit [facility] Endocrinology - [place] [address] [place] [address] Ok Jorge MD #[address] [address] Scheduled Referrals Name Type Priority Associated Diagnoses Orde r Schedule PHYSICAL THERAPY REFERRAL Outpatient Referral Routine OAB (overactive bladder) Urinary incontinence, urge Expected: 11/09/2022, Expires: 11/09/2023 documented as of this encounter Procedures Procedure Name Priority Date/Time Associated Diagnosis Comments POCT UA AUTOMATED W/O MICRO Routine 11/09/2022 1:36 PM STEAM ENGINEER OAB (overactive bladder) documented in this encounter Results * (ABNORMAL) POCT UA AUTOMATED W/O MICRO (11/09/2022 1:36 PM STEAM ENGINEER) POC UA SPECIFIC GRAVITY 1.010 URINE PH 5.0 5.0 - 9.0 POC URINE LEUKOCYTES Negative Negative Lucas/uL POC URINE NITRITE Negative Negative POC URINE PROTEIN Negative Negative mg/dL POC URINE GLUCOSE >1000 mg/dL(A) Negative, Norm mg/dL POC URINE KETONE Negative Negative mg/dL POC URINE UROBILINOGEN Norm Norm, 0.2 E.U./dL (mg/dL), 1 E.U./dL (mg/dL) POC URINE BILIRUBIN Negative Negative mg/dL POC URINE BLOOD INSTRUMENT Negative Negative Alec/uL POC URINE COLOR Yellow POC URINE CLARITY Clear Urine 11/09/2022 1:36 PM STEAM ENGINEER Orlin Urbina APRN, UTILITY WORKER DRIVER POINT OF CARE TESTING (MANUAL) Final Result documented in this encounter Visit Diagnoses Diagnosis OAB (overactive bladder)- Primary Hypertonicity of bladder Urinary incontinence, urge Urge incontinence documented in this encounter Additional Health Concerns Assessment Noted Time PHQ-9 Depression Total Score: 0 10/14/19 11:00 AM STEAM ENGINEER documented as of this encounter Care Teams Dry Goods Clerk Relationship Specialty Start Date End Date Oswaldo Serrano MD #[address] [address] PCP - General Family Medicine 05/19/17 Angel Crowe DPM #[address] [address] Consulting Physician Podiatry 06/16/17 Mora Fritz [place] Behavioral Health Navigator 06/15/18 Ok Jorge MD #[address] [address] Consulting Physician Endocrinology 05/12/22 Orlin Urbina, JOHN, UTILITY WORKER DRIVER [address] [place] [address] Nurse Practitioner Advanced Practice Nurse 11/09/22 documented as of this encounter
--- OUTSIDE RECORDS SUMMARY | 2024-10-07 00:23 | XMS_ITS | Encounter Summary ---
Author Organization [facility] Care Team Providers Care Metal Fabricator Welder Name Role Phone Oswaldo Serrano MD Primary Care Provider [phone] Angel Crowe DPM Unavailable [phone] Mora Fritz Unavailable Unavailable Ok Jorge MD Unavailable Encounter Details Date Type Department Care Team (Latest Contact Info) Description 09/14/2022 Travel Social History Tobacco Use Types Packs/Day [...] suspected to have Coronavirus/COVID-19? No / Unsure 09/14/2022 2:10 PM MACHINING SUPERVISOR documented as of this encounter Plan of Treatment Upcoming Encounters Date Type Department Care Team (Late st Contact Info) Description 10/08/2024 2:15 PM MACHINING SUPERVISOR Office Visit [facility] UROLOGY #2 [place] [address] Orlin Urbina, INSTRUCTOR TRAFFIC SAFETY, DIABETES TERRITORY MANAGER #2 [place] [address] 10/18/2024 2:15 PM MACHINING SUPERVISOR [facility]ment [facility] 1 [place] [address] Oswaldo Serrano MD #2 [facility] [address] [place] [address] Discharge Disposition: Discharged to home or Selfcare 11/29/2024 2:30 PM MACHINING SUPERVISOR Office Visit [facility] - Family Medicine - [place] #2 [place] [address] Oswaldo Serrano MD #2 [facility] [address] [place] [address] 11/30/2024 3:00 PM MACHINING SUPERVISOR Office Visit [facility] - Endocrinology - [place] [address]2 [place] [address] Ok Jorge MD #2 [facility] [address] [place] [address] documented as of this encounter Visit Diagnoses Not on filedocumented in this encounter Additional Health Concerns Assessment Noted Time PHQ-9 Depression Total Score: 2 07/18/20 20 4:26 PM CDT documented as of this encounter Care Teams Metal Fabricator Welder Relationship Specialty Start Date End Date Oswaldo Serrano MD #2 [facility] [address] [place] [address] PCP - General Family Medicine 05/19/17 Angel Crowe DPM #2 [facility] [address] [place] [address] Consulting Physician Podiatry 06/16/17 Mora Firtz Behavioral Health Navigator 06/15/18 Ok Jorge MD #2 [facility] [address] [place] [address] Consulting Physician Endocrinology 05/12/22 documented as of this encounter
--- OUTSIDE RECORDS SUMMARY | 2024-10-07 00:23 | XMS_ITS | Encounter Summary ---
Author Organization [facility] Address [address] [place] [address] Phone Care Team Providers Care Family Resource Management Professor Name Role Phone Oswaldo Serrano MD Primary Care Provider [phone] Angel Crowe DPM Unavailable Mora Fritz Unavailable Unavailable Ok Jorge MD Unavailable Orlin Urbina APRN, SIDE PANEL PADDER Unavailable [phone] Reason for Visit * Reason Onset Date Comments Medication Refill 12/26/2022 Encounter Details Date Type Department Care Team (Late st Contact Info) Description 12/26/2022 MyChart RX Renewal [facility] - Endocrinology - [place] #[address] [place] [address] Ok Jorge MD #[address] [address] Medication Renewal Reviewed Social History [...] Telephone Encounter - Ok Jorge MD - 12/27/2022 10:19 PM CDT Rx sent * Telephone Encounter - Ynes Zuniga RN - 12/27/2022 8:42 AM CDT Requested Prescriptions Pending Prescriptions Disp Refills ??? insulin glargine (Basaglar KwikPen) 100 UNIT/ML Solution Pen-injector 15 mL 1 Si Units by Subcutaneous route every morning. Next appt: 12/30/2022 documented in this encounter Plan of Treatment Upcoming Encounters Date Type Department Care Team (Late st Contact Info) Description 10/08/2024 2:15 PM SENIOR QUALITY CONTROL TECHNICIAN Office Visit [facility] UROLOGY #2 [place] [address] Orlin Urbina, BAT CARRIER, SIDE PANEL PADDER #2 [place] [address] 10/18/2024 2:15 PM SENIOR QUALITY CONTROL TECHNICIAN Appointment [facility] Mammography 1 [place] [address] Oswaldo Serrano MD #[address] [address] Discharge Disposition: Discharged to home or Selfcare 11/29/2024 2:30 PM SENIOR QUALITY CONTROL TECHNICIAN Office Visit [facility] Family Medicine [facility] #2 [place] [address] Oswaldo Serrano MD #[address] [address] 11/30/2024 3:00 PM SENIOR QUALITY CONTROL TECHNICIAN Office Visit [facility] Endocrinology [facility] #2 [place] [address] Ok Jorge MD #[address] [address] documented as of this encounter Visit Diagnoses Not on filedocumented in this encounter Additional Health Concerns Assessment Noted Time PHQ-9 Depression Total Score: 0 10/14/19 23 11:00 AM SENIOR QUALITY CONTROL TECHNICIAN documented as of this encounter Care Teams Family Resource Management Professor Relationship Specialty Start Date End Date Oswaldo Serrano MD #[address] [address] PCP - General Family Medicine 05/19/17 Angel Crowe DPM #[address] [address] Consulting Physician Podiatry 06/16/17 Mora Fritz [place] Behavioral Health Navigator 06/15/18 Ok Jorge MD #[address] [address] Consulting Physician Endocrinology 05/12/22 Orlin Urbina, JOHN, SIDE PANEL PADDER #2 [place] [address] Nurse Practitioner Advanced Practice Nurse 11/09/22 documented as of this encounter
--- OUTSIDE RECORDS SUMMARY | 2024-10-07 00:23 | XMS_ITS | Encounter Summary ---
Author Organization [facility] Address [address] [place] [address] Phone Care Team Providers Care Home Service Demonstrator Name Role Phone Oswaldo Serrano MD Primary Care Provider [phone] Angel Crowe DPM Unavailable Mora Fritz Unavailable Unavailable Ok Jorge MD Unavailable Reason for Visit * Reason Comments Medication Refill Encounter Details Date Type Department Care Team (Late st Contact Info) Description 11/01/2022 Refill [facility] - Endocrinology - [place] #2 [place] [address] Ok Jorge MD #[address] [address] Medication Refill Social History Tobacco [...] suspected to have Coronavirus/COVID-19? No / Unsure 10/14/2022 11:06 AM CAMP DINING ROOM ATTENDANT documented as of this encounter Miscellaneous Notes * Telephone Encounter - Ok Jorge MD - 11/01/2022 10:38 PM CST Rx sent DINING ROOM ATTENDANT * Telephone Encounter - Ynes Zuniga RN - 11/01/2022 9:46 AM CAMP DINING ROOM ATTENDANT Requested Prescriptions Pending Prescriptions Disp Refills ??? Basaglar KwikPen 100 UNIT/ML Solution Pen-injector [Pharmacy Med Name: BASAGLAR 100 U/ML KWIKPEN INJ 3ML] 15 mL Sig: INJECT 20 UNITS UNDER THE SKIN EVERY DAY Next appt: 12/30/2022 DINING ROOM ATTENDANT documented in this encounter Plan of Treatment Upcoming Encounters Date Type Department Care Team (Late st Contact Info) Description 10/08/2024 2:15 PM CAMP DINING ROOM ATTENDANT Office Visit [facility] UROLOGY #2 [place] [address] Orlin Urbina CONSULTING SME, COMPRESS TRUCKER #2 [place] [address] 10/18/2024 2:15 PM CAMP DINING ROOM ATTENDANT Appointment [facility] Mammography 1 [place] [address] Oswaldo Serrano MD #[address] [address] Discharge Disposition: Discharged to home or Selfcare 11/29/2024 2:30 PM CAMP DINING ROOM ATTENDANT Office Visit [facility] Medical Group - Family Medicine [facility] #2 [place] [address] Oswaldo Serrano MD #[address] [address] 11/30/2024 3:00 PM CAMP DINING ROOM ATTENDANT Office Visit [facility] - Endocrinology [facility] #2 [place] [address] Ok Jorge MD #[address] [address] documented as of this encounter Visit Diagnoses Not on filedocumented in this encounter Additional Health Concerns Assessment Noted Time PHQ-9 Depression Total Score: 0 10/14/19 23 11:00 AM CAMP DINING ROOM ATTENDANT documented as of this encounter Care Teams Home Service Demonstrator Relationship Specialty Start Date End Date Oswaldo Serrano MD #[address] [address] PCP - General Family Medicine 05/19/17 Angel Crowe DPM #[address] [address] Consulting Physician Podiatry 06/16/17 Mora Fritz [place] Behavioral Health Navigator 06/15/18 Ok Jorge MD #[address] [address] Consulting Physician Endocrinology 05/12/22 documented as of this encounter
--- OUTSIDE RECORDS SUMMARY | 2024-10-07 00:23 | XMS_ITS | Encounter Summary ---
Author Organization [facility] Address [address] [place] [address] Phone Care Team Providers Care Delivery Engineer Name Role Phone Oswaldo Serrano MD Primary Care Provider [phone] Angel Crowe DPCiara Unavailable [phone] Mora Fritz Unavailable Unavailable Ok Jorge MD Unavailable Orlin Urbina APRN, ELEVATOR INSPECTOR Unavailable + [phone] Reason for Visit * Reason Onset Date Comments Medication Refill 11/10/2022 Encounter Details Date Type Department Care Team (Late st Contact Info) Description 11/10/2022 Telephone [facility] - [facility] #2 [place] [address] Oswaldo Serrano MD #[address] [id number] Medication Refill Social History Tobacco Use Types [...] Coronavirus/COVID-19? No / Unsure 11/09/2022 1:15 PM ANIMAL PARK CODE ENFORCEMENT OFFICER documented as of this encounter Miscellaneous Notes * Telephone Encounter - Oswaldo Serrano MD - 11/14/2022 8:31 AM ANIMAL PARK CODE ENFORCEMENT OFFICER New script e-scribed. Thanks! AL PARK CODE ENFORCEMENT OFFICER * Telephone Encounter - María Perdomo MA - 11/10/2022 4:23 PM ANIMAL PARK CODE ENFORCEMENT OFFICER See script 11/08/22 Cyanocobalamin 500 mcg tabs Class: Phone in Please E-Scribe script to [facility] Thank you AL PARK CODE ENFORCEMENT OFFICER documented in this encounter Plan of Treatment Upcoming Encounters Date Type Department Care Team (Late st Contact Info) Description 10/08/2024 2:15 PM ANIMAL PARK CODE ENFORCEMENT OFFICER Office Visit [facility]IAN GROUP UROLOGY #2 [place] [address] Orlin Urbina APRN, ELEVATOR INSPECTOR #2 [place] [address] 10/18/2024 2:15 PM ANIMAL PARK CODE ENFORCEMENT OFFICER [facility] 1 [place] [address] Oswaldo Serrano MD #[address] [address] Discharge Disposition: Discharged to home or Selfcare 11/29/2024 2:30 PM ANIMAL PARK CODE ENFORCEMENT OFFICER Office Visit [facility] - Family Medicine [facility] #2 [place] [address] Oswaldo Serrano MD #[address] [address] 11/30/2024 3:00 PM ANIMAL PARK CODE ENFORCEMENT OFFICER Office Visit [facility] - Endocrinology [facility] #2 [place] [address] Ok Jorge MD #[address] [address] documented as of this encounter Visit Diagnoses Not on filedocumented in this encounter Additional Health Concerns Assessment Noted Time PHQ-9 Depression Total Score: 0 10/14/19 23 11:00 AM ANIMAL PARK CODE ENFORCEMENT OFFICER documented as of this encounter Care Teams Delivery Engineer Relationship Specialty Start Date End Date Oswaldo Serrano MD #[address] [address] PCP - General Family Medicine 05/19/17 Angel Crowe DPM #[address] [address] Consulting Physician Podiatry 06/16/17 Mora Fritz [place] Behavioral Health Navigator 06/15/18 Ok Jorge MD #[address] [address] Consulting Physician Endocrinology 05/12/22 Orlin Urbina APRN, ELEVATOR INSPECTOR #2 [place] [address] Nurse Practitioner Advanced Practice Nurse 11/09/22 documented as of this encounter
--- OUTSIDE RECORDS SUMMARY | 2024-10-07 00:23 | XMS_ITS | Encounter Summary ---
Author Organization [facility] Address [address] [place] [address] Phone Care Team Providers Care Perishable Fruit Inspector Name Role Phone Oswaldo Serrano MD Primary Care Provider [phone] Angel Crowe DPM Unavailable Mora Fritz Unavailable Unavailable Ok Jorge MD Unavailable Orlin Urbina APRN, VP Unavailable Reason for Visit * Reason Onset Date Comments Medication Refill 12/22/2022 Encounter Details Date Type Department Care Team (Late st Contact Info) Description 12/22/2022 MyChart RX Renewal [facility] - Family [facility] #2 [place] [address] Oswaldo Serrano MD #[address] [address] Medication Renewal Declined Social History Tobacco Use [...] Coronavirus/COVID-19? No / Unsure 11/25/2022 12:13 PM CORPORATE COMMUNICATIONS SPECIALIST documented as of this encounter Miscellaneous Notes * Telephone Encounter - Arabella Carranza RN - 12/23/2022 9:15 AM CDT Refill requested too soon. documented in this encounter Plan of Treatment Upcoming Encounters Date Type Department Care Team (Late st Contact Info) Description 10/08/2024 2:15 PM CORPORATE COMMUNICATIONS SPECIALIST Office Visit [facility]YS[facility]IAN GROUP UROLOGY #2 [place] [address] Orlin Urbina APRN, VP #2 [place] [address] 10/18/2024 2:15 PM CORPORATE COMMUNICATIONS SPECIALIST Appointment [facility] Mammography 1 [place] [address] Oswaldo Serrano MD #[address] [address] Discharge Disposition: Discharged to home or Selfcare 11/29/2024 2:30 PM CORPORATE COMMUNICATIONS SPECIALIST Office Visit [facility] - Family Medicine [facility] #2 [place] [address] Oswaldo Serrano MD #[address] [address] 11/30/2024 3:00 PM CORPORATE COMMUNICATIONS SPECIALIST Office Visit [facility] Endocrinology [facility] #2 [place] [address] Ok Jorge MD #[address] [address] documented as of this encounter Visit Diagnoses Not on filedocumented in this encounter Additional Health Concerns Assessment Noted Time PHQ-9 Depression Total Score: 0 10/14/19 23 11:00 AM CORPORATE COMMUNICATIONS SPECIALIST documented as of this encounter Care Teams Perishable Fruit Inspector Relationship Specialty Start Date End Date Oswaldo Serrano MD #[address] [address] PCP - General Family Medicine 05/19/17 Angel Crowe DPM #[address] [address] Consulting Physician Podiatry 06/16/17 Mora Fritz [place] Behavioral Health Navigator 06/15/18 Ok Jorge MD #[address] [address] Consulting Physician Endocrinology 05/12/22 Orlin Urbina, ADMINISTRATIVE RECEPTIONIST, VP #2 [place] [address] Nurse Practitioner Advanced Practice Nurse 11/09/22 documented as of this encounter
--- OUTSIDE RECORDS SUMMARY | 2024-10-07 00:23 | XMS_ITS | Encounter Summary ---
Author Organization [facility] Address [address] [place] [address] Phone Care Team Providers Care Community Health Director Name Role Phone Oswaldo Serrano MD Primary Care Provider [phone] Angel Crowe DPM Unavailable Mora Fritz Unavailable Unavailable Ok Jorge MD Unavailable Orlin Urbina APRN, PACKING AND WRAPPING SUPERVISOR Unavailable [phone] Reason for Visit * Reason Comments Arm Pain Leg Pain Encounter Details Date Type Department Care Team (Late st Contact Info) Description 01/13/2023 4:45 PM CDT Telemedicine [facility] #2 [place] [address] Oswaldo Serrano MD #[address] [address] Pain of upper extremity, unspecified laterality (Primary Dx); Pain of lower extremity, unspecified laterality Social History Tobacco Use Types Packs/Day Years [...] Progress Notes * Oswaldo Serrano MD - 01/13/2023 4:45 PM CDT Patient was assessed via telephone for a duration of 6 minutes. Patient verbally consented for thisservice to be performed and billed.The patient was at home. CC: Spoke to sister, with patient occasionally talking in background. [facility]. Was having pain on her leg and arm, and sister thought it was cardiac related. She was not having any CP or SOB. No hx of MA or stroke, but she has pacemaker. See Drupal Php Developer. Taking antibioticsfor UTI, per Urology. BP was WNL last week at Urologist's office. Labs & testing done in ER WNL, per daughter. Was not discharged from ER with any scripts. O: Psych: baseline. A/P: 1. Arm/leg pain - nonspecific etiology; continue to monitor. 2. F/U with me this month as scheduled. documented in this encounter Plan of Treatment Upcoming Encounters Date Type Department Care Team (Late st Contact Info) Description 10/08/2024 2:15 PM MOBILE NURSE Office Visit [facility] #2 [place] [address] Orlin Urbina, SPRUE CUTTING PRESS OPERATOR, PACKING AND WRAPPING SUPERVISOR #2 [place] [address] 10/18/2024 2:15 PM MOBILE NURSE [facility] 1 [place] [address] Oswaldo Serrano MD #[address] [address] Discharge Disposition: Discharged to home or Selfcare 11/29/2024 2:30 PM MOBILE NURSE Office Visit [facility] - [place] #2 [place] [address] Oswaldo Serrano MD #[address] [address] 11/30/2024 3:00 PM MOBILE NURSE Office Visit [facility] - Endocrinology - [place] #2 [place] [address] Ok Jorge MD #[address] [address] documented as of this encounter Visit Diagnoses Diagnosis Pain of upper extremity, unspecified laterality- Primary Pain of lower extremity, unspecified laterality documented in this encounter Additional Health Concerns Assessment Noted Time PHQ-9 Depression Total Score: 0 10/14/19 23 11:00 AM MOBILE NURSE documented as of this encounter Care Teams Community Health Director Relationship Specialty Start Date End Date Oswaldo Serrano MD #[address] [address] PCP - General Family Medicine 05/19/17 Angel Crowe DPM #2 [facility] [address] [place] [address] Consulting Physician Podiatry 06/16/17 Mora Fritz [place] Behavioral Health Navigator 06/15/18 Ok Jorge MD #2 [facility] [address] [place] [phone] Consulting Physician Endocrinology 05/12/22 Orlin Urbina APRN, PACKING AND WRAPPING SUPERVISOR #2 [place] [address] Nurse Practitioner Advanced Practice Nurse 11/09/22 documented as of this encounter
--- OUTSIDE RECORDS SUMMARY | 2024-10-07 00:23 | XMS_ITS | Encounter Summary ---
Author Organization [facility] Address [address] [place] [address] Phone Care Team Providers Care Lode Miner Name Role Phone Oswaldo Serrano MD Primary Care Provider [phone] Angel Crowe DPM Unavailable Mora Fritz Unavailable Unavailable Ok Jorge MD Unavailable Orlin Urbina APRN, HISTOTECHNOLOGIST Unavailable Reason for Visit * Reason Comments Medication Refill Encounter Details Date Type Department Care Team (Late st Contact Info) Description 01/04/2023 Refill [facility] [place] [facility] #2 [place] [address] Orlin Urbina APRN, HISTOTECHNOLOGIST #2 [place] [address] Medication Refill Social History Tobacco Use Types [...] Telephone Encounter - Jennifer Stoner RN - 01/06/2023 8:14 AM CDT Duplicate request documented in this encounter Plan of Treatment Upcoming Encounters Date Type Department Care Team (Late st Contact Info) Description 10/08/2024 2:[address] JUDGE Office Visit [facility] #2 [place] [address] Orlin Urbina APRN, HISTOTECHNOLOGIST #2 [place] [address] 10/18/2024 2:[address] JUDGE Appointment [facility] M[facility] 1 [place] [address] Oswaldo Serrano MD #[address] [address] Discharge Disposition: Discharged to home or Selfcare 11/29/2024 2:[address] JUDGE Office Visit [facility] - Family Medicine [facility] #2 [place] [address] Oswaldo Serrano MD #[address] [address] 11/30/2024 3:[address] JUDGE Office Visit [facility] - Endocrinology - [place] #2 [place] [address] Ok Jorge MD #[address] [place] [address] documented as of this encounter Visit Diagnoses Diagnosis OAB (overactive bladder) Hypertonicity of bladder documented in this encounter Additional Health Concerns Assessment Noted Time PHQ-9 Depression Total Score: 0 10/14/19 23 11:[address] JUDGE documented as of this encounter Care Teams Lode Miner Relationship Specialty Start Date End Date Oswaldo Serrano MD #[address] [address] PCP - General Family Medicine 05/19/17 Angel Crowe DPM #[address] [address] Consulting Physician Podiatry 06/16/17 Mora Fritz [place] Behavioral Health Navigator 06/15/18 Ok Jorge MD #[address] [address] Consulting Physician Endocrinology 05/12/22 Orlin Urbina APRN, HISTOTECHNOLOGIST #2 [place] [address] Nurse Practitioner Advanced Practice Nurse 11/09/22 documented as of this encounter
--- OUTSIDE RECORDS SUMMARY | 2024-10-07 00:23 | XMS_ITS | Encounter Summary ---
Author Organization [facility] Address [address] [place] [address] Phone Care Team Providers Care Technical Solutions Director Name Role Phone Oswaldo Serrano MD Primary Care Provider [phone] Angel Crowe DPM Unavailable [phone] Mora Fritz Unavailable Unavailable Ok Jorge MD Unavailable Orlin Urbina APRN, COMMUNITY HEALTH CONSULTANT Unavailable [phone] Reason for Visit * Radiology Services (Routine) - Closed Specialty Diagnoses / Procedures Referred By Contnay t Referred To Contact Radiology Diagnoses Abnormal mammogram Procedures SHABANA DIAG BILATERAL DIGITAL W CAD SHABANA DIAG BILATERAL DIGITAL W CAD W Oswaldo Andrews MD #[address] [address] Phone: tel: fax: Referral ID Status Reason Start Date Expiration Date Visits Re quested Visits Authorized [id number] Closed 09/21/2022 1 1 Encounter Details Date Type Department Care Team (Latest Contact Info) Description 11/25/2022 2:00 PM WARP PREPARER - 11/25/2022 11:59 PM WARP PREPARER Hospital Encounter [facility] Mammography [address] [place] [phone] Oswaldo Serrano MD #[address] [facility] [address] [place] [address] Discharge Disposition: Discharged to home or Selfcare [...] Coronavirus/COVID-19? No / Unsure 11/25/2022 12:13 PM WARP PREPARER documented as of this encounter Medications at Time of Discharge Blood Glucose Monitoring Suppl Device Test blood glucose 4 times daily. E11.9, insulin dependent 1 Each 2019 Continuous Blood Gluc Transmit (Dexcom G6 Transmitter) Misc 12/03/2021 Cyanocobalamin (B-12) 500 MCG Tablet Take 1 Tablet by mouth daily. 90 Tablet 3 11/14/2022 dilTIAZem (CARDIZEM) 30 MG Tablet TK 1 T PO TID 0 04/28/2017 Entresto 24-26 MG Tablet 09/11/2021 Insulin Syringe-Needle U-100 (TRUEPLUS INSULIN SYRINGE) 31G X 5/16 0.5 ML Misc USE 4 TIMES DAILY 400 Each 3 2019 Lancets Misc Test four times daily. E11.9, insulin dependent 400 Lancet 3 2019 albuterol 108 (90 Base) MCG/ACT Aerosol Solution take 1-2 Puffs by inhalation every 4 hours as needed for Cough. 1 g 10/07/2021 4 carvedilol (COREG) 25 MG Tablet 25 mg 2 times daily. 05/06/2017 4 Continuous Blood Gluc Sensor (Dexcom G6 Sensor) Misc 10/05/2022 4 Dapagliflozin Propanediol (Farxiga) 10 MG Tablet Take by mouth. 06/01/2022 4 docusate sodium (COLACE) 100 MG Capsule TAKE ONE CAPSULE BY MOUTH TWICE DAILY 60 Capsule 2 08/12/2022 3 escitalopram (LEXAPRO) 10 MG Tablet TAKE ONE TABLET BY MOUTH EVERY DAY 90 Tablet 1 06/21/2022 3 furosemide (LASIX) 40 MG TabletIndications :Chronic congestive heart failure, unspecified heart failure type (HCC) Take 1 Tablet by mouth daily. 90 Tablet 2 11/02/2022 3 Glucose Blood (True Metrix Blood Glucose Test) Strip TEST USING ONE STRIP FOUR TIMES DAILY 400 Each 3 05/10/2022 3 insulin glargine (Basaglar KwikPen) 100 UNIT/ML Solution Pen-injector 17 Units by Subcutaneous route every morning. 15 mL 1 11/10/2022 3 Insulin Pen Needle (PEN NEEDLES 31GX5/16 ) 31G X 8 MM [facility] Use to inject insulin 4x daily. 400 Each 3 11/10/2022 4 levothyroxine (SYNTHROID) 50 MCG Tablet TAKE ONE TABLET BY MOUTH EVERY MORNING 90 Tablet 2 03/12/2022 3 Myrbetriq 50 MG TABLET SR 24 HR Take 50 mg by mouth daily. 30 Tablet 11/02/2022 3 nortriptyline (PAMELOR) 10 MG Capsule TAKE ONE CAPSULE BY MOUTH ONE TIME DAILY IN THE EVENING 90 Capsule 1 06/04/2022 3 NovoLOG FlexPen 100 UNIT/ML Solution Pen-injector INJECT 16 UNITS BEFORE EACH MEAL -- ISF OF 1:30 IF GREATER THAN 140MG/DL UP TO 70 UNITS PER DAY 75 mL 1 11/10/2022 3 omeprazole (PriLOSEC) 20 MG CAPSULE DELAYED RELEASE TAKE ONE CAPSULE BY MOUTH EVERY DAY 90 Capsule 1 10/14/2022 3 potassium chloride SA (KLORCON M) 20 MEQ Tablet Controlled ReleaseIndication s:Chronic congestive heart failure, unspecified heart failure type (HCC) Take 1 Tablet by mouth daily. 90 Tablet 3 01/25/2022 3 rivaroxaban (Xarelto) 20 MG Tablet Take 20 mg by mouth daily (with dinner). Take with food. 4 documented as of this encounter Plan of Treatment Upcoming Encounters Date Type Department Care Team (Late st Contact Info) Description 10/08/2024 2:15 PM WARP PREPARER Office Visit [facility] #2 [place] [address] Orlin Urbina APRN, COMMUNITY HEALTH CONSULTANT #2 [place] [address] 10/18/2024 2:15 PM WARP PREPARER [facility] 1 [place] [address] Oswaldo Serrano MD #[address] [address] Discharge Disposition: Discharged to home or Selfcare 11/29/2024 2:30 PM WARP PREPARER Office Visit [facility] - [place] #2 [place] [address] Oswaldo Serrano MD #[address] [address] 11/30/2024 3:00 PM WARP PREPARER Office Visit [facility] - [place] #2 [place] [address] Ok Jorge MD [facility] [address] [place] [address] documented as of this encounter Procedures Procedure Name Priority Date/Time Associated Diagnosis Comments SHABANA DIAG BILATERAL DIGITAL W CAD Routine 11/25/2022 2:57 PM WARP PREPARER Abnormal mammogram documented in this encounter Results * SHABANA DIAG BILATERAL DIGITAL W CAD (11/25/2022 2:57 PM WARP PREPARER) Anatomical Region Laterality Modality breast Bilateral Mammography 11/25/2022 2:09 PM WARP PREPARER Narrative 11/25/2022 4:13 PM WARP PREPARER - SHABANA DIAG BILATERAL DIGITAL W CAD BILATERAL DIGITAL DIAGNOSTIC MAMMOGRAM WITH CAD WITH MEDIOLATERAL MEDIOLATERAL OBLIQUE CRANIOCAUDAL MAGNIFICATION: 11/25/2022 The study was acquired using digital technology and interpreted from soft copy. Current study was also evaluated with ICAD version 7.2. ?? CLINICAL: Diagnostic study. Patient returns for a 1 month follow-up left breast calcifications. No personal history of cancer. No family history of breast cancer. Left pacemaker. 2D due to history of not being able to fully follow breathing instructions. ?? COMPARISONS: Comparison is made to exams dated: ??09/14/2022, 01/29/2022, 10/27/2021, and 10/17/2018 [facility]. ?? BREAST TISSUE:There are scattered fibroglandular densities in both breasts. ?? FINDINGS: A cardiac pacemaker is present on the left. ?? The calcifications in the left breast at the 1 o'clock middle depth are stable. ??These will continue to be classified as probably benign. No other significant masses, calcifications, or other findings are seen in either breast. IMPRESSION: BI-RAD 3 PROBABLY BENIGN The calcifications in the left breast are stable and will continue to be classified as probably benign. ?? A follow-up mammogram in 12 month is recommended. ?? The results and recommendations were discussed with the patient. Electronically signed by: Arsalan Bocanegra M.D. ? ll/:11/25/2022 15:06:12 ?? Patrol Driver(s): Debi ?? DAYSI CorderoR)(M), [facility] letter sent: Alexandro 3 Followup ?? Reading location: [facility] BI-RADS: 3 Probably benign Procedure Note Arsalan Bocanegra MD - 11/25/2022 - SHABANA DIAG BILATERAL DIGITAL W CAD BILATERAL DIGITAL DIAGNOSTIC MAMMOGRAM WITH CAD WITH MEDIOLATERAL MEDIOLATERAL OBLIQUE CRANIOCAUDAL MAGNIFICATION: 11/25/2022 The study was acquired using digital technology and interpreted from soft copy. Current study was also evaluated with ICAD version 7.2. CLINICAL: Diagnostic study. Patient returns for a 1 month follow-up left breast calcifications. No personal history of cancer. No family history of breast cancer. Left pacemaker. 2D due to history of not being able to fully follow breathing instructions. COMPARISONS: Comparison is made to exams dated: 09/14/2022, 01/29/2022, 10/27/2021, and 10/17/2018 [facility]. BREAST TISSUE:There are scattered fibroglandular densities in both breasts. FINDINGS: A cardiac pacemaker is present on the left. The calcifications in the left breast at the 1 o'clock middle depth are stable. These will continue to be classified as probably benign. No other significant masses, calcifications, or other findings are seen in either breast. IMPRESSION: BI-RAD 3 PROBABLY BENIGN The calcifications in the left breast are stable and will continue to be classified as probably benign. A follow-up mammogram in 12 month is recommended. The results and recommendations were discussed with the patient. Electronically signed by: Arsalan Bocanegra M.D. ll/:11/25/2022 15:06:12 Patrol Driver(s): RT Norbert(R)(M), [facility] letter sent: Jamirad 3 Followup Reading location: [facility] BI-RADS: 3 Probably benign us Oswaldo Serrano MD IMG MAMMO ORDERABLES Final Result documented in this encounter Visit Diagnoses Diagnosis Abnormal mammogram Abnormal mammogram, unspecified documented in this encounter Additional Health Concerns Assessment Noted Time PHQ-9 Depression Total Score: 0 10/14/19 11:00 AM WARP PREPARER documented as of this encounter Care Teams Technical Solutions Director Relationship Specialty Start Date End Date Oswaldo Serrano MD #2 [facility] [address] [place] [address] PCP - General Family Medicine 05/19/17 Angel Crowe DPM #2 [facility] [address] [place] [address] Consulting Physician Podiatry 06/16/17 Mora Fritz [place] Behavioral Health Navigator 06/15/18 Ok Jorge MD #2 [facility] [address] [place] [address] Consulting Physician Endocrinology 05/12/22 Orlin Urbina, COMPARATIVE SOCIOLOGY PROFESSOR, COMMUNITY HEALTH CONSULTANT #2 [place] [address] Nurse Practitioner Advanced Practice Nurse 11/09/22 documented as of this encounter
--- OUTSIDE RECORDS SUMMARY | 2024-10-07 00:23 | XMS_ITS | Encounter Summary ---
Author Organization [facility] Address [address] [place] [address] Phone Care Team Providers Care Ecg Technician Name Role Phone Oswaldo Serrano MD Primary Care Provider [phone] Angel Crowe DPM Unavailable [phone] Mora Fritz Unavailable Unavailable Ok Jorge MD Unavailable Reason for Referral * Consult, Test & Initiate Treatment (Less Than 4 Weeks) - Closed Specialty Diagnoses / Procedures Referred By Contac t Referred To Contact Obstetrics & Gynecology Diagnoses Screening for cervical cancer Oswaldo Serrano MD [address] [address] Phone: tel: fax: [facility] - Obstetrics & Gynecology - [place] [address] [place] [address] Phone: tel: fax: Referral ID Status Reason Start Date Expiration Date Visits Re quested Visits Authorized [id number] Closed 10/14/2022 1 1 Scheduling Instructions Loretta is being referred for PAP smear. Please contact patient for scheduling questions or concerns. EL ACCOMMODATIONS RATER Reason for Visit * Reason Comments ED Follow-up Encounter Details Date Type Department Care Team ([facility] st Contact Info) Description 10/14/2022 11:15 AM TRAVEL ACCOMMODATIONS RATER Office Visit [facility] #2 [place] [address] Oswaldo Serrano MD #[address] [address] RSV (acute bronchiolitis due to respiratory syncytial virus) (Primary Dx); Screening for cervical cancer; Abnormal mammogram; Hyperlipidemia, unspecified hyperlipidemia type Discharge Disposition: Discharged to home or [...] Coronavirus/COVID-19? No / Unsure 10/14/2022 11:06 AM TRAVEL ACCOMMODATIONS RATER documented as of this encounter Last Filed Vital Signs Vital Sign Reading Time Taken Comments Blood Pressure 116/82 10/14/2022 11:17 AM TRAVEL ACCOMMODATIONS RATER Pulse 105 10/14/2022 11:17 AM TRAVEL ACCOMMODATIONS RATER Temperature 36.4 ??C (97.6 ??F) 10/14/2022 1 1:17 AM TRAVEL ACCOMMODATIONS RATER Respiratory Rate 16 10/14/2022 11:1 7 AM TRAVEL ACCOMMODATIONS RATER Oxygen Saturation 96% 10/14/2022 11: 17 AM TRAVEL ACCOMMODATIONS RATER Inhaled Oxygen Concentration - - Weight 133.9 kg (295 lb 4.8 oz) 023 11:17 AM TRAVEL ACCOMMODATIONS RATER Height 167.6 cm (5' 6 ) 10/14/2022 11:1 7 AM TRAVEL ACCOMMODATIONS RATER Body Mass Index 47.66 10/14/2022 11:17 AM TRAVEL ACCOMMODATIONS RATER documented in this encounter Functional Status * Question Answer Date of Assessment Author Little interest or pleasure in doing things Not at all 10/14/2022 11:00 AM TRAVEL ACCOMMODATIONS RATER Sylvia Cain RMA Feeling down, depressed, or hopeless Not at all 10/14/2022 11:00 AM TRAVEL ACCOMMODATIONS RATER Sylvia Cain RMA * Over the past 2 weeks, how often have you been bothered by any of the following problems? Question Answer Date of Assessment Author Patient Health Questionnaire -2 Score 0 10/14/2022 11:00 AM TRAVEL ACCOMMODATIONS RATER Sylvia Cain RMA documented as of this encounter Patient Instructions * Patient Instructions* Oswaldo Serrano MD - 10/14/2022 11:15 AM TRAVEL ACCOMMODATIONS RATER See all other doctors as scheduled. Please complete survey if you receive one. 3. Get PAP smear done. 4. Get mammogram done as scheduled. 5. Fast 10 hours for labs. EL ACCOMMODATIONS RATER EL ACCOMMODATIONS RATER EL ACCOMMODATIONS RATER EL ACCOMMODATIONS RATER documented in this encounter Progress Notes * Sylvia Cain RMA - 10/14/2022 11:15 AM CST Loretta Penn, 61 y.o., female is here for ED Follow-up Medication Refills: Patient reports/denies need for [...] Continuous Blood Gluc Sensor (Dexcom G6 Sensor) [facility] 10/05/22 Yes Nica Muniz MD Continuous Blood Gluc Transmit (Dexcom G6 Transmitter) [facility] 12/03/21 Yes Nica Muniz MD Cyanocobalamin (B-12) 500 MCG Tablet TAKE ONE TABLET BY MOUTH EVERY DAY 02/04/22 Yes Oswaldo Serrano MD Dapagliflozin Propanediol (Farxiga) 10 MG Tablet Take by mouth. 06/01/22 Yes Nica Muniz MD dilTIAZem (CARDIZEM) 30 MG Tablet TK 1 T PO TID 04/28/17 Yes Nica Muniz MD docusate sodium (COLACE) 100 MG Capsule TAKE ONE CAPSULE BY MOUTH TWICE DAILY 08/12/22 Yes Oswaldo Serrano MD Entresto 24-26 MG Tablet 09/11/21 Yes Nica Muniz MD escitalopram (LEXAPRO) 10 MG Tablet TAKE ONE TABLET BY MOUTH EVERY DAY 06/21/22 Yes Yves Serrano MD furosemide (LASIX) 40 MG Tablet TAKE ONE TABLET BY MOUTH EVERY DAY 01/28/22 Yes Connor Yuan APRN, CNP Glucose Blood (True Metrix Blood Glucose Test) Strip TEST USING ONE STRIP FOUR TIMES DAILY 05/10/22 Yes Ok Jorge MD insulin degludec (Tresiba FlexTouch) 100 UNIT/ML Solution Pen-injector Tresiba FlexTouch U-100 100 unit/mL (3 mL) insulin pen 10/10/1969 Yes Nica Muniz MD insulin glargine (LANTUS, BASAGLAR) 100 UNIT/ML Solution Pen-injector 20 Units by Subcutaneous route every morning. 04/07/22 Yes Ok Jorge MD Insulin Pen Needle (PEN NEEDLES 31GX5/16 ) 31G X 8 MM Misc Use to inject insulin 4x daily. 12/07/21 Yes Ok Jorge MD Insulin Syringe-Needle U-100 (TRUEPLUS INSULIN SYRINGE) 31G X 5/16 0.5 ML Misc USE 4 TIMES DAILY 12/19/19 Yes Ok Jorge MD Lancets Misc Test four times daily. E11.9, insulin dependent 12/19/19 Yes Ok Jorge MD levothyroxine (SYNTHROID) 50 MCG Tablet TAKE ONE TABLET BY MOUTH EVERY MORNING 03/12/22 Yes Oswaldo Serrano MD Myrbetriq 50 MG TABLET SR 24 HR 08/17/22 Yes ProviderNica MD nortriptyline (PAMELOR) 10 MG Capsule TAKE ONE CAPSULE BY MOUTH ONE TIME DAILY IN THE EVENING 06/04/22 Yes Oswaldo Serrano MD NovoLOG FlexPen 100 UNIT/ML Solution Pen-injector INJECT 18 UNITS AT BREAKFAST, 18 UNITS AT LUNCH AND 14 UNITS AT DINNER -- ISF OF 1:30 IF GREATER THAN 140MG/DL UP TO 70 UNITS PER DAY 04/07/22 Yes Ok Jorge MD omeprazole (PriLOSEC) 20 MG CAPSULE DELAYED RELEASE TAKE ONE CAPSULE BY MOUTH EVERY DAY 10/14/22 Yes Oswaldo Serrano MD potassium chloride SA (KLORCON M) 20 MEQ Tablet Controlled Release Take 1 Tablet by mouth daily. 01/25/22 Yes Oswaldo Serrano MD rivaroxaban (Xarelto) 20 [...] (3 - Booster for Pfizer series) 03/15/2021 ??? Cervical Cancer Screening (CCS) 06/06/2022 Orders Pended: no The following BPA's have been addressed with the patient today: Depression EL ACCOMMODATIONS RATER * Oswaldo Serrano MD - 10/14/2022 11:15 AM CST CHIEF COMPLAINT: RSV. SUBJECTIVE: The patient is here today to discuss her RSV. She is over the infection. She was seen at [facility]. She had missed her appointment for the Pap smear due to a family tragedy. She is due to have her cholesterol checked. She had an abnormal mammogram, and has an upcoming repeat mammogram scheduled. Her last lipid panel was done, looks like back in January of 2022, and triglycerides were high at that time at 161, HDL was 41.8, LDL was 83. She is currently seeing multiple specialists including Dr. Flores and Dr. Block. Is on insulin. I do not see that she is on any statin therapy right now. I have reviewed all the systems. They are negative except as mentioned in HPI. OBJECTIVE: Vital Signs: Blood pressure 116/82, pulse 105, temperature 97.6, respirations 16. Weight 295. General: Patient is talkative, cooperative, and appropriately dressed. Chest: Clear to auscultation bilaterally. No wheezing. Heart: S1, S2, no murmurs. Neck: No carotid bruits auscultated. ASSESSMENT AND PLAN: 1. Screening for cervical cancer. I will refer to Dr. Brannon/facility assistant for Pap smear. 2. Respiratory syncytial virus, resolved. 3. Abnormal mammogram. She is going to be getting a repeat imaging study done soon. This is already scheduled. 4. Hyperlipidemia. I will get a lipid panel and CMP on her. 5. This patient is to follow up in 3 months. IJN: [id number] EL ACCOMMODATIONS RATER EL ACCOMMODATIONS RATER documented in this encounter Plan of Treatment Upcoming Encounters Date Type Department Care Team (Late st Contact Info) Description 10/08/2024 2:15 PM TRAVEL ACCOMMODATIONS RATER Office Visit [facility] UROLOGY #2 [place] [phone] Orlin Urbina, CUSTOMER SERVICE LEADER, HOSE TURNER #2 [place] [address] 10/18/2024 2:15 PM TRAVEL ACCOMMODATIONS RATER [facility] 1 [place] [address] Oswaldo Serrano MD #2 [facility] [address] [place] [address] Discharge Disposition: Discharged to home or Selfcare 11/29/2024 2:30 PM TRAVEL ACCOMMODATIONS RATER Office Visit [facility] - [place] #2 [facility] [place] [address] Oswaldo Serrano MD #2 [facility] [address] [place] [address] 11/30/2024 3:00 PM TRAVEL ACCOMMODATIONS RATER Office Visit [facility] - End[facility]inology - [place] #2 [place] [address] Ok Jorge MD #2 [facility] [address] [place] [address] Scheduled Orders Name Type Priority Associated Diagnoses Orde r Schedule LIPID PANEL Lab Routine Hyperlipidemia, unspecified hyperlipidemia type Expected: 02/01/2023 (Approximate), Expires: 10/14/2023 Scheduled Referrals Name Type Priority Associated Diagnoses Order Schedule GYNECOLOGY REFERRAL Outpatient Referral Less Than 4 weeks Screening for cervical cancer Expected: 10/14/2022, Expires: 10/14/2023 documented as of this encounter Results * (ABNORMAL) CMP (COMPREHENSIVE METABOLIC PANEL) (06/21/2023 2:56 PM CDT) SODIUM 137 136 - 145 mmol/L 06/21/2023 3:43 PM CDT [facility] POTASSIUM 3.9 3.5 - 5.1 mmol/L 06/21/2023 3:43 PM CDT [facility] CHLORIDE 100 98 - 107 mmol/L 06/21/2023 3:43 PM CDT [facility] CO2, VENOUS 29 22 - 30 mmol/L 06/21/2023 3:43 PM CDT [facility] ANION GAP 11.9 <18.0 mmol/L 06/21/2023 3:43 PM CDT [facility] GLUCOSE 153(H) 70 - 99 mg/dL 06/21/2023 3:43 PM CDT [facility] BUN 21(H) 10 - 20 mg/dL 06/21/2023 3:43 PM CDT [facility] CREATININE, BLOOD 0.98 0.60 - 1.00 mg/dL 06/21/2023 3:43 PM CDT [facility] BUN/CREATININE RATIO 21(H) 12 - 20 ratio 06/21/2023 3:43 PM CDT [facility] TOTAL PROTEIN 8.1 6.3 - 8.2 g/dL 06/21/2023 3:43 PM CDT [facility] ALBUMIN 3.7 3.5 - 5.0 g/dL 06/21/2023 3:43 PM CDT [facility] A/G RATIO 0.8(L) 1.0 - 2.2 06/21/2023 3:43 PM CDT [facility] CALCIUM 10.2 8.7 - 10.5 mg/dL 06/21/2023 3:43 PM CDT [facility] T BILI 0.6 0.2 - 1.2 mg/dL 06/21/2023 3:43 PM CDT [facility] SGOT (AST) 18 5 - 34 U/L 06/21/2023 3:43 PM CDT [facility] SGPT (ALT) 18 0 - 55 U/L 06/21/2023 3:43 PM CDT [facility] ALKALINE PHOSPHATASE 151(H) 40 - 150 U/L 06/21/2023 3:43 PM CDT [facility] IS THE PATIENT REQUIRED TO BE FASTING? No 06/21/2023 3:43 PM CDT [facility] GFR, ESTIMATED >60 >=60 06/21/2023 3:43 PM CDT [facility] Comment: Creatinine Clearance is the preferred criteria for selecting drug dose adjustments in renally impaired patients. ??The GFR is provided as additional pertinent clinical information. GFR is reported in mL/min/1.73 sq m. Calculation based on the Chronic Kidney Disease Epidemiology Collaboration (CKD- EPI) equation refit without adjustment for race. GFR, EST. >60 >=60 023 3:43 PM CDT [facility] GFR, EST. NONAFRICAN 58(L) >=60 06/21/2023 3:43 PM CDT [facility] Blood Venipuncture / Unknown 06/21/2023 2:56 PM CDT 06/21/2023 3:14 PM CDT Oswaldo Serrano MD CHEMISTRY ORDERABLES Final Result [facility] [address] [place] [address] documented in this encounter Visit Diagnoses Diagnosis RSV (acute bronchiolitis due to respiratory syncytial virus)- Primary Acute bronchiolitis due to respiratory syncytial virus (RSV) Screening for cervical cancer Screening for malignant neoplasm of the cervix Abnormal mammogram Abnormal mammogram, unspecified Hyperlipidemia, unspecified hyperlipidemia type documented in this encounter Additional Health Concerns Assessment Noted Time PHQ-9 Depression Total Score: 0 10/14/19 23 11:00 AM TRAVEL ACCOMMODATIONS RATER documented as of this encounter Care Teams Ecg Technician Relationship Specialty Start Date End Date Oswaldo Serrano MD #2 [facility] [address] [place] [address] PCP - General Family Medicine 05/19/17 Angel Crowe DPM #2 [facility] [address] [place] [address] Consulting Physician Podiatry 06/16/17 Mora Fritz Behavioral Health Navigator 06/15/18 Ok Jorge MD #2 [facility] [address] [place] [address] Consulting Physician Endocrinology 05/12/22 documented as of this encounter
--- OUTSIDE RECORDS SUMMARY | 2024-10-07 00:23 | XMS_ITS | Encounter Summary ---
Author Organization [facility] Address [address] [place] [address] Phone Care Team Providers Care Lip Reading Teacher Name Role Phone Oswaldo Serrano MD Primary Care Provider [phone] Angel Crowe DPM Unavailable [phone] Mora Fritz Unavailable Unavailable Ok Jorge MD Unavailable Reason for Visit * Radiology Services (Routine) - Closed Specialty Diagnoses / Procedures Referred By Praful t Referred To Contact Radiology Diagnoses Abnormal mammogram Procedures SHABANA DIAG LEFT DIGITAL W CAD SHABANA DIAG LEFT UNILATERAL DIGITAL W CAD W Oswaldo Andrews MD #[address] [address] Phone: tel: fax: Referral ID Status Reason Start Date Expiration Date Visits Re quested Visits Authorized [id number] Closed 06/07/2022 1 1 Encounter Details Date Type Department Care Team (Latest Contact Info) Description 09/14/2022 2:00 PM CABIN EQUIPMENT SUPERVISOR - 09/14/2022 11:59 PM CABIN EQUIPMENT SUPERVISOR Hospital Encounter [facility] Mammography [address] [place] [address] Oswaldo Serrano MD #[address] [facility] [address] [place] [address] Discharge Disposition: Discharged to home or Selfcare [...] Coronavirus/COVID-19? No / Unsure 09/14/2022 2:10 PM CABIN EQUIPMENT SUPERVISOR documented as of this encounter Medications at Time of Discharge Blood Glucose Monitoring Suppl Device Test blood glucose 4 times daily. E11.9, insulin dependent 1 Each 2019 Continuous Blood Gluc Transmit (Dexcom G6 Transmitter) Misc 12/03/2021 dilTIAZem (CARDIZEM) 30 MG Tablet TK 1 [...] 25 mg 2 times daily. 05/06/2017 4 Cyanocobalamin (B-12) 500 MCG Tablet TAKE ONE TABLET BY MOUTH EVERY DAY 90 Tablet 2 02/04/2022 3 Dapagliflozin Propanediol (Farxiga) 10 MG Tablet Take by mouth. 06/01/2022 4 docusate sodium (COLACE) 100 MG Capsule TAKE ONE CAPSULE BY MOUTH TWICE DAILY 60 Capsule 2 08/12/2022 3 escitalopram (LEXAPRO) 10 MG Tablet TAKE ONE TABLET BY MOUTH EVERY DAY 90 Tablet 1 06/21/2022 3 furosemide (LASIX) 40 MG TabletIndications :Chronic congestive heart failure, unspecified heart failure type (HCC) TAKE ONE TABLET BY MOUTH EVERY DAY 90 Tablet 2 01/28/2022 3 Glucose Blood (True Metrix Blood Glucose Test) Strip TEST USING ONE STRIP FOUR TIMES DAILY 400 Each 3 05/10/2022 3 insulin degludec (Tresiba FlexTouch) 100 UNIT/ML Solution Pen-injector Tresiba FlexTouch U-100 100 unit/mL (3 mL) insulin pen 10/10/1969 3 insulin glargine (LANTUS, BASAGLAR) 100 UNIT/ML Solution Pen-injector 20 Units by Subcutaneous route every morning. 30 mL 1 04/07/2022 3 Insulin Pen Needle (PEN NEEDLES 31GX5/16 ) 31G X 8 MM [facility] Use to inject insulin 4x daily. 400 Each 3 12/07/2021 3 levothyroxine (SYNTHROID) 50 MCG Tablet TAKE ONE TABLET BY MOUTH EVERY MORNING 90 Tablet 2 03/12/2022 3 Myrbetriq 50 MG TABLET SR 24 HR 08/17/2022 3 nortriptyline (PAMELOR) 10 MG Capsule TAKE ONE CAPSULE BY MOUTH ONE TIME DAILY IN THE EVENING 90 Capsule 1 06/04/2022 3 NovoLOG FlexPen 100 UNIT/ML Solution Pen-injector INJECT 18 UNITS AT BREAKFAST, 18 UNITS AT LUNCH AND 14 UNITS AT DINNER -- ISF OF 1:30 IF GREATER THAN 140MG/DL UP TO 70 UNITS PER DAY 75 mL 1 04/07/2022 3 omeprazole (PriLOSEC) 20 MG CAPSULE DELAYED RELEASE TAKE ONE CAPSULE BY MOUTH EVERY DAY 90 Capsule 2 01/22/2022 3 potassium chloride SA (KLORCON M) 20 [...] st Contact Info) Description 10/08/2024 2:15 PM CABIN EQUIPMENT SUPERVISOR Office Visit [facility] UROLOGY #2 [place] [address] Orlin Urbina, SPOOL SALVAGER, SUPERVISOR HEADING #2 [place] [address] 10/18/2024 2:15 PM CABIN EQUIPMENT SUPERVISOR [facility] 1 [place] [address] Oswaldo Serrano MD #[address] [address] Discharge Disposition: Discharged to home or Selfcare 11/29/2024 2:30 PM CABIN EQUIPMENT SUPERVISOR Office Visit [facility] - [place] #2 [place] [address] Oswaldo Serrano MD #[address] [address] 11/30/2024 3:00 PM CABIN EQUIPMENT SUPERVISOR Office Visit [facility] - Endocr[facility]ology - [place] #[address] [place] [address] Ok Jorge MD #[address] [address] [address] documented as of this encounter Procedures Procedure Name Priority Date/Time Associated Diagnosis Comments SHABANA DIAG LEFT DIGITAL W CAD Routine 09/14/2022 3:20 PM CABIN EQUIPMENT SUPERVISOR Abnormal mammogram documented in this encounter Results * SHABANA DIAG LEFT DIGITAL W CAD (09/14/2022 3:20 PM CABIN EQUIPMENT SUPERVISOR) Anatomical Region Laterality Modality breast Left Mammography 09/14/2022 2:20 PM CABIN EQUIPMENT SUPERVISOR Narrative 09/15/2022 12:20 PM CABIN EQUIPMENT SUPERVISOR - SHABANA DIAG LEFT DIGITAL W CAD UNILATERAL LEFT DIGITAL DIAGNOSTIC MAMMOGRAM WITH CAD WITH MEDIOLATERAL MEDIOLATERAL OBLIQUE CRANIOCAUDAL MAGNIFICATION: 09/14/2022 The study was acquired using digital technology and interpreted from soft copy. Current study was also evaluated with ICAD version 7.2. ?? CLINICAL: Patient returns for a 6 month follow-up left breast. Patient has no complaints. She is unable to follow directions and hold her breath for 3D. ?? COMPARISONS: Comparison is made to exams dated: ??01/29/2022, 10/27/2021, 10/17/2018 [facility], and 07/07/[facility]. ?? BREAST TISSUE:There are scattered fibroglandular densities in left breast. ?? FINDINGS: The calcifications in the left breast at the 1 o'clock middle depth are stable. ??These will continue to be classified as probably benign. No other significant masses, calcifications, or other findings are seen in the breasts. IMPRESSION: BI-RAD 3 PROBABLY BENIGN The calcifications in the left breast are stable and will continue to be classified as probably benign. ?? A follow-up mammogram in 1 month is recommended. ??This is 1 year from the patient's most recent bilateral mammogram. ?? The results and recommendations were discussed with the patient. Electronically signed by: Arsalan Bocanegra M.D. ? ll/:09/14/2022 15:21:24 ?? Food And Drug Inspector(s): Alicia ??PEDRO Ac)(Ciara), [facility] letter sent: Birad 3 Followup ?? Reading location: [place] BI-RADS: 3 Probably benign Procedure Note Arsalan Bocanegra MD - 09/15/2022 - SHABANA DIAG LEFT DIGITAL W CAD UNILATERAL LEFT DIGITAL DIAGNOSTIC MAMMOGRAM WITH CAD WITH MEDIOLATERAL MEDIOLATERAL OBLIQUE CRANIOCAUDAL MAGNIFICATION: 09/14/2022 The study was acquired using digital technology and interpreted from soft copy. Current study was also evaluated with ICAD version 7.2. CLINICAL: Patient returns for a 6 month follow-up left breast. Patient has no complaints. She is unable to follow directions and hold her breath for 3D. COMPARISONS: Comparison is made to exams dated: 01/29/2022, 10/27/2021, 10/17/2018 [facility], and 07/07/2015 [facility]. BREAST TISSUE:There are scattered fibroglandular densities in left breast. FINDINGS: The calcifications in the left breast at the 1 o'clock middle depth are stable. These will continue to be classified as probably benign. No other significant masses, calcifications, or other findings are seen in the breasts. IMPRESSION: BI-RAD 3 PROBABLY BENIGN The calcifications in the left breast are stable and will continue to be classified as probably benign. A follow-up mammogram in 1 month is recommended. This is 1 year from the patient's most recent bilateral mammogram. The results and recommendations were discussed with the patient. Electronically signed by: Arsalan Bocanegra M.D. ll/:09/14/2022 15:21:24 Food And Drug Inspector(s): PEDRO Carreon)(M), [facility] sent: Birad 3 Followup Reading location: [place] BI-RADS: 3 Probably benign Oswaldo Serrano MD IMG MAMMO ORDERABLES Final Result documented in this encounter Visit Diagnoses Diagnosis Abnormal mammogram Abnormal mammogram, unspecified documented in this encounter Additional Health Concerns Assessment Noted Time PHQ-9 Depression Total Score: 2 07/18/20 20 4:26 PM CDT documented as of this encounter Care Teams Lip Reading Teacher Relationship Specialty Start Date End Date Oswaldo Serrano MD #2 [facility] [address] [place] [address] PCP - General Family Medicine 05/19/17 Angel Crowe DPM #2 [facility] [address] [place] [address] Consulting Physician Podiatry 06/16/17 Mora Fritz [place] Behavioral Health Navigator 06/15/18 Ok Jorge MD #[address] [address] Consulting Physician Endocrinology 05/12/22 documented as of this encounter
--- OUTSIDE RECORDS SUMMARY | 2024-10-07 00:23 | XMS_ITS | Encounter Summary ---
Author Organization [facility] Care Team Providers Care Computer Clerk Name Role Phone Oswaldo Serrano MD Primary Care Provider [phone] Angel Crowe DPM Unavailable [phone] Mora Fritz Unavailable Unavailable Ok Jorge MD Unavailable Orlin Urbina APRN, CHEMISTRY FACULTY MEMBER Unavailable [phone] Encounter Details Date Type Department Care Team (Latest Contact Info) Description 12/30/2022 Travel Social History Tobacco Use Types Packs/Day [...] suspected to have Coronavirus/COVID-19? No / Unsure 12/30/2022 3:33 PM CDT documented as of this encounter Plan of Treatment Upcoming Encounters Date Type Department Care Team (Late st Contact Info) Description 10/08/2024 2:15 PM PSYCHIATRY ADULT PHYSICIAN Office Visit [facility] UROLOGY #2 [place] [phone] Orlin Urbina, HEALTH COACH, CHEMISTRY FACULTY MEMBER #2 [place] [address] 10/18/2024 2:15 PM PSYCHIATRY ADULT PHYSICIAN [facility] 1 [place] [phone] Oswaldo Serrano MD #[address] [address] Discharge Disposition: Discharged to home or Selfcare 11/29/2024 2:30 PM PSYCHIATRY ADULT PHYSICIAN Office Visit [facility] - [place] #2 [place] [address] Oswaldo Serrano MD #[address] [address] 11/30/2024 3:00 PM PSYCHIATRY ADULT PHYSICIAN Office Visit [facility] - [place] #2 [place] [phone] Ok Jorge MD #[address] [phone] documented as of this encounter Visit Diagnoses Not on filedocumented in this encounter Additional Health Concerns Assessment Noted Time PHQ-9 Depression Total Score: 0 01/05/20 23 11:00 AM PSYCHIATRY ADULT PHYSICIAN documented as of this encounter Care Teams Computer Clerk Relationship Specialty Start Date End Date Oswaldo Serrano MD #2 [facility] [address] [place] [address] PCP - General Family Medicine 05/19/17 Angel Crowe DPM #2 [facility] [address] [place] [address] Consulting Physician Podiatry 06/16/17 Mora Fritz [place] Behavioral Health Navigator 06/15/18 Ok Jorge MD #2 [facility] [address] [place] [address] Consulting Physician Endocrinology 05/12/22 Orlin Urbina, HEALTH COACH, CHEMISTRY FACULTY MEMBER #2 [place] [address] Nurse Practitioner Advanced Practice Nurse 11/09/22 documented as of this encounter
--- OUTSIDE RECORDS SUMMARY | 2024-10-07 00:23 | XMS_ITS | Encounter Summary ---
Author Organization [facility] Address [address] [address] Phone Care Team Providers Care Fruit Harvester Name Role Phone Oswaldo Serrano MD Primary Care Provider [phone] Angel Crowe DPM Unavailable Mora Fritz Unavailable Unavailable Ok Jorge MD Unavailable Encounter Details Date Type Department Care Team (Late st Contact Info) Description 10/04/2022 Telephone [facility] - Family Medicine [facility] #2 [place] [address] Oswaldo Serrano MD #[address] [id number] Social History Tobacco Use Types Packs/Day Years [...] Coronavirus/COVID-19? No / Unsure 09/28/2022 3:35 PM LABORER POLE CREW documented as of this encounter Miscellaneous Notes * Telephone Encounter - Oswaldo Serrano MD - 10/05/2022 10:40 AM LABORER POLE CREW DONE. RER POLE CREW documented in this encounter Plan of Treatment Upcoming Encounters Date Type Department Care Team (Late st Contact Info) Description 10/08/2024 2:15 PM LABORER POLE CREW Office Visit [facility] #2 [place] [address] Orlin Urbina, MANAGER MATERIALS MANAGEMENT, BRANCH COORDINATOR #2 [place] [address] 10/18/2024 2:15 PM LABORER POLE CREW Appointment [facility] 1 [place] [id number] Oswaldo Serrano MD #[address] [address] Discharge Disposition: Discharged to home or Selfcare 11/29/2024 2:30 PM LABORER POLE CREW Office Visit [facility] - Family Medicine [facility] #2 [place] [phone] Oswaldo Serrano MD #[address] [address] 11/30/2024 3:00 PM LABORER POLE CREW Office Visit [facility] - Endocrinology - [place] #2 [place] [address] Ok Jorge MD #[address] [address] documented as of this encounter Visit Diagnoses Not on filedocumented in this encounter Additional Health Concerns Assessment Noted Time PHQ-9 Depression Total Score: 2 07/18/20 20 4:26 PM CDT documented as of this encounter Care Teams Fruit Harvester Relationship Specialty Start Date End Date Oswaldo Serrano MD #[address] [address] PCP - General Family Medicine 05/19/17 Angel Crowe DPM #[address] [address] Consulting Physician Podiatry 06/16/17 Mora Fritz [place] Behavioral Health Navigator 06/15/18 Ok Jorge MD #[address] [address] Consulting Physician Endocrinology 05/12/22 documented as of this encounter
--- OUTSIDE RECORDS SUMMARY | 2024-10-07 00:23 | XMS_ITS | Encounter Summary ---
Author Organization [facility] Address [address] [place] [address] Phone Care Team Providers Care Corrosion Engineer Name Role Phone Oswaldo Serrano MD Primary Care Provider [phone] Angel Crowe DPM Unavailable [phone] Mora Fritz Unavailable Unavailable Ok Jorge MD Unavailable Orlin Urbina APRN, MARBLE MECHANIC HELPER Unavailable + [phone] Reason for Visit * Reason Onset Date Comments Medication Refill 12/14/2022 Encounter Details Date Type Department Care Team (Late st Contact Info) Description 12/14/2022 MyChart RX Renewal [facility] #2 [place] [address] Oswaldo Serrano MD #[address] [address] Medication Renewal Reviewed Social History Tobacco Use [...] Coronavirus/COVID-19? No / Unsure 11/25/2022 12:13 PM HIGH SCHOOL FOREIGN LANGUAGE TUTOR documented as of this encounter Miscellaneous Notes * Telephone Encounter - Mica Morales RN - 12/14/2022 4:44 PM CST Medication failed the protocol, provider to review and approve the medication order if appropriate. Requested Prescriptions Pending Prescriptions Disp Refills levothyroxine (SYNTHROID) 50 MCG Tablet 90 Tablet 2 Sig: Take 1 Tablet by mouth every morning. Thyroid Hormones Protocol Passed - 12/14/2022 1:18 PM Passed - Visit with relevant provider in past 12 months or upcoming 90 days Recent Visits Date Type Provider Dept 10/14/22 Office Visit Oswaldo Serrano MD [facility] 08/26/22 Office Visit Connor Yuan APRN, [facility] 05/25/22 Office Visit Tom Quach MD [facility] 01/05/22 Office Visit Oswaldo Serrano MD [facility] Showing recent visits within past 365 days and meeting all other requirements Future Appointments Date Type Provider Dept 01/12/23 Appointment Oswaldo Serrano MD [facility] Showing future appointments within next 90 days and meeting all other requirements Passed - Normal TSH in past 12 months TSH Date Value Ref Range Status 01/21/2022 3.730 0.270 - 4.200 mIU/L Final nortriptyline (PAMELOR) 10 MG Capsule 90 Capsule 1 Sig: Take 1 Capsule by mouth nightly. Not Delegated - Tricyclic Agents Protocol Failed - 12/14/2022 1:18 PM Failed - This refill cannot be delegated Passed - Visit with relevant provider in past 12 months or upcoming 90 days Recent Visits Date Type Provider Dept 10/14/22 Office Visit Oswaldo Serrano MD [facility] 08/26/22 Office Visit Connor Yuan APRN, [facility] 05/25/22 Office Visit Tom Quach MD [facility] 01/05/22 Office Visit Oswaldo Serrano MD [facility] Showing recent visits within past 365 days and meeting all other requirements Future Appointments Date Type Provider Dept 01/12/23 Appointment Oswaldo Serrano MD [facility] Showing future appointments within next 90 days and meeting all other requirements escitalopram (LEXAPRO) 10 MG Tablet 90 Tablet 1 Sig: Take 1 Tablet by mouth daily. SSRI (6 Month Refill Only) Protocol Failed - 12/14/2022 1:18 PM Failed - Has an encounter in the past 6 months with a depression, anxiety, adjustment disorder, OCD, or PTSD visit diagnosis Passed - Visit with relevant provider in past 6 months or upcoming 90 days Recent Visits Date Type Provider Dept 10/14/22 Office Visit Oswaldo Serrano MD [facility] 08/26/22 Office Visit Connor Yuan APRN, [facility] Showing recent visits within past 182 days and meeting all other requirements Future Appointments Date Type Provider Dept 01/12/23 Appointment Oswaldo Serrano MD [facility] Showing future appointments within next 90 days and meeting all other requirements Passed - Patient has established therapy with SSRI for at least 6 months SCHOOL FOREIGN LANGUAGE TUTOR documented in this encounter Plan of Treatment Upcoming Encounters Date Type Department Care Team (Late st Contact Info) Description 10/08/2024 2:15 PM HIGH SCHOOL FOREIGN LANGUAGE TUTOR Office Visit [facility] #[address] [place] [address] Orlin Urbina APRN, MARBLE MECHANIC HELPER #2 [place] [address] 10/18/2024 2:15 PM HIGH SCHOOL FOREIGN LANGUAGE TUTOR [facility] 1 [place] [address] Oswaldo Serrano MD #[address] [address] Discharge Disposition: Discharged to home or Selfcare 11/29/2024 2:30 PM HIGH SCHOOL FOREIGN LANGUAGE TUTOR [facility] Visit [facility] #2 [place] [address] Oswaldo Serrano MD #[address] [address] 11/30/2024 3:00 PM HIGH SCHOOL FOREIGN LANGUAGE TUTOR Office Visit [facility] Endocrin[facility] #2 [place] [address] Ok Jorge MD #[address] [address] documented as of this encounter Visit Diagnoses Not on filedocumented in this encounter Additional Health Concerns Assessment Noted Time PHQ-9 Depression Total Score: 0 10/14/19 23 11:00 AM HIGH SCHOOL FOREIGN LANGUAGE TUTOR documented as of this encounter Care Teams Corrosion Engineer Relationship Specialty Start Date End Date Oswaldo Serrano MD #[address] [address] PCP - General Family Medicine 05/19/17 Angel Crowe DPM #[address] [address] [place] [address] Consulting Physician Podiatry 06/16/17 Mora Fritz MD Behavioral Health Navigator 06/15/18 Ok Jorge MD #2 [facility] [address] [place] [address] Consulting Physician Endocrinology 05/12/22 Orlin Urbina, SOCIAL MEDIA CONTENT SPECIALIST, MARBLE MECHANIC HELPER #2 [place] [address] Nurse Practitioner Advanced Practice Nurse 11/09/22 documented as of this encounter
--- OUTSIDE RECORDS SUMMARY | 2024-10-07 00:23 | XMS_ITS | Encounter Summary ---
Author Organization [email or web address] Care Team Providers Care Molder Trimmer Name Role Phone Oswaldo Serrano MD Primary Care Provider [phone] Angel Crowe DPM Unavailable [phone] Mora Fritz Unavailable Unavailable Ok Jorge MD Unavailable Encounter Details Date Type Department Care Team (Latest Contact Info) Description 09/28/2022 Travel Social History Tobacco Use Types Packs/Day [...] Coronavirus/COVID-19? No / Unsure 09/28/2022 3:35 PM MYCOLOGY TEACHER documented as of this encounter Plan of Treatment Upcoming Encounters Date Type Department Care Team (Late st Contact Info) Description 10/08/2024 2:15 PM MYCOLOGY TEACHER Office Visit [facility] #2 [place] [address] Orlin Urbina, ASSISTANT STRENGTH COACH, LOCOMOTIVE FIRER/FIREMAN #2 [place] [address] 10/18/2024 2:15 PM MYCOLOGY TEACHER [facility] 1 [place] [address] Oswaldo Serrano MD #2 [facility] [address] [place] [address] Discharge Disposition: Discharged to home or Selfcare 11/29/2024 2:30 PM MYCOLOGY TEACHER Office Visit [facility] - [place] #2 [place] [address] Oswaldo Serrano MD #2 [facility] [address] [place] [address] 11/30/2024 3:00 PM MYCOLOGY TEACHER Office Visit [facility] - [place] #2 [place] [address] Ok Jorge MD #2 [facility] [address] [place] [address] documented as of this encounter Visit Diagnoses Not on filedocumented in this encounter Additional Health Concerns Assessment Noted Time PHQ-9 Depression Total Score: 2 07/18/20 20 4:26 PM CDT documented as of this encounter Care Teams Molder Trimmer Relationship Specialty Start Date End Date Oswaldo Serrano MD #2 [facility] [address] [place] [address] PCP - General Family Medicine 05/19/17 Angel Crowe DPM #2 [facility] [address] [place] [address] Consulting Physician Podiatry 06/16/17 Mora Fritz Behavioral Health Navigator 06/15/18 Ok Jorge MD #2 [facility] [address] [place] [address] Consulting Physician Endocrinology 05/12/22 documented as of this encounter
--- OUTSIDE RECORDS SUMMARY | 2024-10-07 00:23 | XMS_ITS | Encounter Summary ---
Author Organization [facility] Address [address] [place] [address] Phone Care Team Providers Care Assigner Name Role Phone Oswaldo Serrano MD Primary Care Provider [phone] Angel Crowe DPM Unavailable Mora Fritz Unavailable Unavailable Ok Jorge MD Unavailable Reason for Visit * Reason Onset Date Comments Medication Refill 11/01/2022 Encounter Details Date Type Department Care Team (Late st Contact Info) Description 11/01/2022 MyChart RX Renewal [facility] Medicine - [place] #2 [place] [address] Connor Yuan APRN, PILOT MANAGER #[address] [address] Medication Renewal Reviewed Social History Tobacco Use [...] Coronavirus/COVID-19? No / Unsure 10/14/2022 11:06 AM TRACK GRINDER OPERATOR documented as of this encounter Miscellaneous Notes * Telephone Encounter - Mica Morales RN - 11/02/2022 10:08 AM CST Medication[facility]) [facility] Order for Pediatricand Adult Patients. Requested Prescriptions Pending Prescriptions Disp Refills ??? furosemide (LASIX) 40 MG Tablet 90 Tablet 2 Sig: Take 1 Tablet by mouth daily. Diuretics Protocol Passed - 11/01/2022 11:50 PM Passed - Serum potassium on record in past 12 months POTASSIUM Date Value Ref Range Status 01/21/2022 4.5 3.5 - 5.1 mmol/L Final Passed - Serum sodium on record in past 12 months SODIUM Date Value Ref Range Status 01/21/2022 135 (L) 136 - 144 mmol/L Final Passed - Blood pressure on record in past 12 months Clinician-entered: BP Readings from Last 3 Encounters: 10/14/22 116/82 09/28/22 118/76 08/26/22 114/60 Patient-entered: No data recorded Passed - Visit with relevant provider in past 12 months or upcoming 90 days Recent Visits Date Type Provider Dept 10/14/22 Office Visit Oswaldo Serrano MD [facility] 08/26/22 Office Visit Connor Yuan, PAEDIATRICIAN, [facility] 05/25/22 Office Visit Tom Quach MD [facility] 01/05/22 Office Visit Oswaldo Serrano MD [facility] Showing recent visits within past 365 days and meeting all other requirements Future Appointments Date Type Provider Dept 01/12/23 Appointment Oswaldo Serrano MD [facility] Showing future appointments within next 90 days and meeting all other requirements Passed - GFR on record in past 12 months GFR, EST. NONAFRICAN Date Value Ref Range Status 01/21/2022 >60 >=60 Final K GRINDER OPERATOR documented in this encounter Plan of Treatment Upcoming Encounters Date Type Department Care Team (Late st Contact Info) Description 10/08/2024 2:15 PM TRACK GRINDER OPERATOR Office Visit [facility] #2 [place] [address] Orlin Urbina APRN, PILOT MANAGER #2 [place] [address] 10/18/2024 2:15 PM TRACK GRINDER OPERATOR [facility] 1 [place] [address] Oswaldo Serrano MD #[address] [address] Discharge Disposition: Discharged to home or Selfcare 11/29/2024 2:30 PM TRACK GRINDER OPERATOR Office Visit [facility] #2 [place] [address] Oswaldo Serrano MD #[address] [address] 11/30/2024 3:00 PM TRACK GRINDER OPERATOR Office Visit [facility] - [place] #2 [place] [address] Ok Jorge MD #2 [facility] [address] [place] [address] documented as of this encounter Visit Diagnoses Diagnosis Chronic congestive heart failure, unspecified heart failure type (HCC) documented in this encounter Additional Health Concerns Assessment Noted Time PHQ-9 Depression Total Score: 0 10/14/19 23 11:00 AM TRACK GRINDER OPERATOR documented as of this encounter Care Teams Assigner Relationship Specialty Start Date End Date Oswaldo Serrano MD #[address] [address] PCP - General Family Medicine 05/19/17 Angel Crowe DPM #[address] [address] Consulting Physician Podiatry 06/16/17 Mora Fritz [place] Behavioral Health Navigator 06/15/18 Ok Jorge MD #[address] [address] Consulting Physician Endocrinology 05/12/22 documented as of this encounter
--- OUTSIDE RECORDS SUMMARY | 2024-10-07 00:23 | XMS_ITS | Encounter Summary ---
Author Organization [facility] Address [address] [place] [address] Phone Care Team Providers Care Training And Development Officer Name Role Phone Oswaldo Serrano MD Primary Care Provider [phone] Angel Crowe DPM Unavailable Mora Fritz Unavailable Unavailable Ok Jorge MD Unavailable Orlin Urbina APRN, SUPPORT SERVICES REP Unavailable + [phone] Encounter Details Date Type Department Care Team (Late st Contact Info) Description 11/14/2022 Telephone [facility] #2 [place] [address] Oswaldo Serrano MD [facility] [facility] [id number] Social History Tobacco Use Types Packs/Day Years [...] Coronavirus/COVID-19? No / Unsure 11/09/2022 1:15 PM DEPUTY CONTROLLER documented as of this encounter Miscellaneous Notes * Telephone Encounter - Oswaldo Serrano MD - 11/15/2022 1:51 PM DEPUTY CONTROLLER DONE. TY CONTROLLER documented in this encounter Plan of Treatment Upcoming Encounters Date Type Department Care Team (Late st Contact Info) Description 10/08/2024 2:15 PM DEPUTY CONTROLLER Office Visit [facility] #2 [place] [address] Orlin Urbina, CLINICAL BIOSTATISTICIAN, SUPPORT SERVICES REP #2 [place] [address] 10/18/2024 2:15 PM DEPUTY CONTROLLER Appointment [facility] M[facility] 1 [place] [address] Oswaldo Serrano MD #[address] [address] Discharge Disposition: Discharged to home or Selfcare 11/29/2024 2:30 PM DEPUTY CONTROLLER Office Visit [facility] - Family Medicine [facility] #2 [place] [address] Oswaldo Serrano MD #[address] [address] 11/30/2024 3:00 PM DEPUTY CONTROLLER Office Visit [facility] - [facility] #2 [place] [address] Ok Jorge MD #[address] [address] documented as of this encounter Visit Diagnoses Not on filedocumented in this encounter Additional Health Concerns Assessment Noted Time PHQ-9 Depression Total Score: 0 10/14/19 23 11:00 AM DEPUTY CONTROLLER documented as of this encounter Care Teams Training And Development Officer Relationship Specialty Start Date End Date Oswaldo Serrano MD #[address] [address] PCP - General Family Medicine 05/19/17 Angel Crowe DPM #[address] [address] Consulting Physician Podiatry 06/16/17 Mora Fritz [place] Behavioral Health Navigator 06/15/18 Ok Jorge MD #[address] [address] Consulting Physician Endocrinology 05/12/22 Orlin Urbina APRN, SUPPORT SERVICES REP #2 [place] [address] Nurse Practitioner Advanced Practice Nurse 11/09/22 documented as of this encounter
--- OUTSIDE RECORDS SUMMARY | 2024-10-07 00:23 | XMS_ITS | Encounter Summary ---
Author Organization [facility] Address [address] [place] [address] Phone Care Team Providers Care Gauge And Instrument Inspector Name Role Phone Oswaldo Serrano MD Primary Care Provider [phone] Angel Crowe DPM Unavailable [phone] Mora Fritz Unavailable Unavailable Ok Jorge MD Unavailable Orlin Urbina APRN, PHYS THER Unavailable + [phone] Encounter Details Date Type Department Care Team (Late st Contact Info) Description 01/13/2023 Telephone [facility] #2 [place] [address] [facility]aldo Serrano MD [facility] [id number] Social History Tobacco Use Types Packs/Day Years [...] Miscellaneous Notes * Telephone Encounter - Sylvia Florez RMA - 01/13/2023 2:02 PM CDT scheduled * Telephone Encounter - Sylvia Florez RMA - 01/13/2023 12:44 PM CDT LVM to schedule * Telephone Encounter - Oswaldo Serrano MD - 01/13/2023 9:21 AM CDT Schedule her for telephone visit with me rivas for ER follow-up. Thanks! documented in this encounter Plan of Treatment Upcoming Encounters Date Type Department Care Team (Late st Contact Info) Description 10/08/2024 2:15 PM CENTERPUNCHER Office Visit [facility] #2 [place] [address] Orlin Urbina, FILLING TECHNICIAN, PHYS THER #2 [place] [address] 10/18/2024 2:15 PM CENTERPUNCHER [facility] 1 [place] [address] Oswaldo Serrano MD #[address] [place] [address] Discharge Disposition: Discharged to home or Selfcare 11/29/2024 2:30 PM CENTERPUNCHER Office Visit [facility] #2 [place] [address] Oswaldo Serrano MD #[address] [place] [address] 11/30/2024 3:00 PM CENTERPUNCHER Office Visit [facility] - Endocrinology [facility] #2 [place] [address] Ok Jorge MD #[address] [place] [address] documented as of this encounter Visit Diagnoses Not on filedocumented in this encounter Additional Health Concerns Assessment Noted Time PHQ-9 Depression Total Score: 0 10/14/19 23 11:00 AM CENTERPUNCHER documented as of this encounter Care Teams Gauge And Instrument Inspector Relationship Specialty Start Date End Date Oswaldo Serrano MD #[address] [address] PCP - General Family Medicine 05/19/17 Angel Crowe DPM #[address] [place] [address] Consulting Physician Podiatry 06/16/17 Mora Fritz Behavioral Health Navigator 06/15/18 Ok Jorge MD #[address] [address] Consulting Physician Endocrinology 05/12/22 Orlin Urbina APRN, PHYS THER #2 [place] [address] Nurse Practitioner Advanced Practice Nurse 11/09/22 documented as of this encounter
--- OUTSIDE RECORDS SUMMARY | 2024-10-07 00:23 | XMS_ITS | Encounter Summary ---
Author Organization [facility] Address [address] [place] [address] Phone Care Team Providers Care Pharmacology Teacher Name Role Phone Oswaldo Serrano MD Primary Care Provider [phone] Angel Crowe DPCiara Unavailable Mora Fritz Unavailable Unavailable Ok Jorge MD Unavailable Orlin Urbina APRN, RIB BENDER Unavailable [phone] Reason for Visit * Reason Onset Date Comments Medication Refill 11/26/2022 Encounter Details Date Type Department Care Team (Late st Contact Info) Description 11/26/2022 [facility]ill [facility] #2 [place] [phone] Oswaldo Serrano MD #[address] [address] Medication Refill Social History Tobacco Use Types [...] Coronavirus/COVID-19? No / Unsure 11/25/2022 12:13 PM BOARD WORKER documented as of this encounter Miscellaneous Notes * Telephone Encounter - Mica Morales RN - 11/26/2022 2:32 PM CST Medication(s) refilled and signed per [facility] Chronic Medication Refill Standing Order for Pediatricand Adult Patients. Requested Prescriptions Pending Prescriptions Disp Refills ??? docusate sodium (COLACE) 100 MG Capsule 60 Capsule 2 Sig: Take 1 Capsule by mouth 2 times daily. Laxatives Protocol Passed - 11/26/2022 10:56 AM Passed - Visit with relevant provider in past 12 months or upcoming 90 days Recent Visits Date Type Provider Dept 10/14/22 Office Visit Oswaldo Serrano MD [facility] 08/26/22 Office Visit Connor Yuan APRN, [facility] 05/25/22 Office Visit Tom Quach MD [facility] 01/05/22 Office Visit Oswaldo Serrano MD [facility] Showing recent visits within past 365 days and meeting all other requirements Future Appointments Date Type Provider Dept 01/12/23 Appointment Oswaldo Serrano MD [facility] Showing future appointments within next 90 days and meeting all other requirements Passed - Up to date with colon cancer screening Health Maintenance D WORKER * Telephone Encounter - María Perdomo MA - 11/26/2022 10:55 AM BOARD WORKER Please send new script for Docusate sodium 100 mg caps to Tavia Isaac [facility] D WORKER documented in this encounter Plan of Treatment Upcoming Encounters Date Type Department Care Team (Late st Contact Info) Description 10/08/2024 2:15 PM BOARD WORKER Office Visit [facility] UROLOGY #2 [place] [address] Orlin Urbina APRN, RIB BENDER #2 [place] [address] 10/18/2024 2:15 PM BOARD WORKER Appointment [facility] Mammography 1 [place] [address] Oswaldo Serrano MD #2 [facility] [address] [place] [address] Discharge Disposition: Discharged to home or Selfcare 11/29/2024 2:30 PM BOARD WORKER Office Visit [facility] - [place] #2 [place] [address] Oswaldo Serrano MD #2 [facility] [address] [place] [address] 11/30/2024 3:00 PM BOARD WORKER Office Visit [facility] - Endocrinology - [place] #2 [facility] [place] [address] Ok Jorge MD #2 [facility] [address] [place] [address] documented as of this encounter Visit Diagnoses Not on filedocumented in this encounter Additional Health Concerns Assessment Noted Time PHQ-9 Depression Total Score: 0 10/14/19 23 11:00 AM BOARD WORKER documented as of this encounter Care Teams Pharmacology Teacher Relationship Specialty Start Date End Date Oswaldo Serrano MD #2 [facility] [address] [place] [address] PCP - General Family Medicine 05/19/17 Angel Crowe DPM #2 [facility] [address] [place] [address] Consulting Physician Podiatry 06/16/17 Mora Fritz Behavioral Health Navigator 06/15/18 Ok Jorge MD #2 [facility] [address] [place] [address] Consulting Physician Endocrinology 05/12/22 Orlin Urbina APRN, RIB BENDER #2 [place] [address] Nurse Practitioner Advanced Practice Nurse 11/09/22 documented as of this encounter
--- OUTSIDE RECORDS SUMMARY | 2024-10-07 00:23 | XMS_ITS | Encounter Summary ---
Author Organization [facility] Address [address] [place] [address] Phone Care Team Providers Care Windows Systems Engineer Name Role Phone Oswaldo Serrano MD Primary Care Provider [phone] Angel Crowe DPM Unavailable [phone] Mora Fritz Unavailable Unavailable Ok Jorge MD Unavailable Reason for Visit * Reason Comments Diabetes Mellitus Encounter Details Date Type Department Care Team (Late st Contact Info) Description 09/28/2022 3:30 PM PRESIDING STEWARD Office Visit [facility] - Endocr[facility]ology - [place] #2 [place] [address] Ok Jorge MD #[address] [address] Type 2 diabetes mellitus treated [...] Coronavirus/COVID-19? No / Unsure 09/28/2022 3:35 PM PRESIDING STEWARD documented as of this encounter Last Filed Vital Signs Vital Sign Reading Time Taken Comments Blood Pressure 118/76 09/28/2022 3:41 PM PRESIDING STEWARD Pulse 74 09/28/2022 3:41 PM PRESIDING STEWARD Temperature 36.6 ??C (97.8 ??F) 09/28/2022 3:41 PM CS T Respiratory Rate 18 09/28/2022 3:41 PM PRESIDING STEWARD Oxygen Saturation 93% 09/28/2022 3:41 PM PRESIDING STEWARD Inhaled Oxygen Concentration - - Weight 132.5 kg (292 lb) 09/28/2022 3:41 PM PRESIDING STEWARD Height 167.6 cm (5' 6 ) 09/28/2022 3:41 PM PRESIDING STEWARD Body Mass Index 47.13 09/28/2022 3:41 PM PRESIDING STEWARD documented in this encounter Patient Instructions * Patient Instructions* Ok Jorge MD - 09/28/2022 3:30 PM PRESIDING STEWARD Please take Lantus 17 units in the morning Please take NovoLog (Humalog) 16 units before each meal Please use correctional [...] 400 +9 UNITS ABOVE 400 +10 UNITS IDING STEWARD documented in this encounter Progress Notes * Ynes Zuniga RN - 09/28/2022 3:30 PM CST Finger stick obtained for A1c collection. Patient tolerated well. IDING STEWARD * Ok Jorge MD - 09/28/2022 3:30 PM CST Subject&Objective Loretta Penn is a 61-year-old woman who returns to the Endocrinology office to discuss management of type 2 diabetes mellitus. 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 Other pertinent health history includes hypertension, dyslipidemia, and obesity. The patient was initially diagnosed with diabetes >10 years ago. Currently, the patient takes Lantus 17 units in the morning and Humalog 16 units before each meal for management of hyperglycemia. The patient reports infrequent, mild hypoglycemic events with intactsymptoms of hypoglycemia awareness. The patient denied severe low blood sugar events requiring third libertarian intervention. Review of her CGM download for the past two weeks showed morning values in therange of 156 to 196 mg/dL, lunch values ranging from 170 to 210 mg/dL, dinner values in the range of 140 to 200 mg/dL, and bedtime values ranging from 140 to 210 mg/dL. Average blood glucose was 185 mg/dL +/-44. Hemoglobin A1c obtained by POC testing today was 8.3%, improved from the previous measurement of 8.5% obtained in June 2022. Physical Exam Vitals: 09/28/22 1541 BP: 118/76 BP Location: Right Arm BP Position: Sitting BP Cuff Size: Large Pulse: 74 Resp: 18 Temp: 97.8 ??F (36.6 ??C) TempSrc: Temporal SpO2: 93% Weight: 292 lb (132.5 kg) Height: 5' 6 (1.676 m) Constitutional: appears well-developed and well-nourished. No acute distress. Head: Normocephalic and atraumatic. Cardiovascular: Normal rate and regular rhythm Pulmonary/Chest: Effort normal and breath sounds normal Abdominal: No lipohypertrophy at injection sites Assessment and Plan Loretta Penn is a middle-aged woman with type 2 diabetes mellitus whose glycemic control was suboptimal based on both review of her CGM download and today's hemoglobin A1c measurement. With medical and functional comorbidities, her glycemic goal is somewhat higher (~A1c<8.0%) to avoid hypoglycemia and related complications. High blood glucose overnight is likely due to snack at bedtime. Treatment consideration and lifestyle modification were discussed with her and her sister at some length. She is agreeable to reduce snack at bedtime and continue current medication for management of hyperglycemia. The patient will return for office reevaluation in 3 months. PLAN: 1. Take Lantus 17 units in the morning 2. Take Humalog 16 units before each meal 3. Correctional factor [...] including pre-visit review of separately obtained history, jrig-lr-[id number] interaction performing medically appropriate physical exam, patientcounseling/education, interpretation of diagnostic results, care coordination and documentation was31 minute Ok Jorge MD 09/28/2022 IDING STEWARD documented in this encounter Plan of Treatment Upcoming Encounters Date Type Department Care Team (Late st Contact Info) Description 10/08/2024 2:15 PM PRESIDING STEWARD Office Visit [facility] #2 [place] [address] Orlin Urbina APRN, EDGE CUTTING MACHINE OPERATOR #2 [place] [address] 10/18/2024 2:15 PM PRESIDING STEWARD [facility] 1 [place] [phone] Oswaldo Serrano MD #[address] [address] Discharge Disposition: Discharged to home or Selfcare 11/29/2024 2:30 PM PRESIDING STEWARD Office Visit [facility] Medicine [facility] #2 [place] [address] Oswaldo Serrano MD #[address] [address] 11/30/2024 3:00 PM PRESIDING STEWARD Office Visit [facility] - Endocrinology - [place] #2 [place] [phone] kO Jorge MD #2 [facility] [address] [place] [address] documented as of this encounter Procedures Procedure Name Priority Date/Time Associated Diagnosis Comments POCT GLYCOSYLATED HEMOGLOBIN Routine 09/28/2022 3:48 PM PRESIDING STEWARD Type 2 diabetes mellitus treated with insulin (HCC) documented in this encounter Results * (ABNORMAL) POCT GLYCOSYLATED HEMOGLOBIN (09/28/2022 3:48 PM PRESIDING STEWARD) HGB-A1C 8.3(A) 4 - 6 Blood 09/28/2022 3:48 PM PRESIDING STEWARD Ok Jorge MD POINT OF CARE TESTING [...] documented as of this encounter Care Teams Windows Systems Engineer Relationship Specialty Start Date End Date Oswaldo Serrano MD #[address] [address] PCP - General Family Medicine 05/19/17 Angel Crowe DPM #[address] [address] Consulting Physician Podiatry 06/16/17 Mora Fritz Behavioral Health Navigator 06/15/18 Ok Jorge MD #[address] [address] Consulting Physician Endocrinology 05/12/22 documented as of this encounter
--- OUTSIDE RECORDS SUMMARY | 2024-10-07 00:23 | XMS_ITS | Encounter Summary ---
Author Organization [facility] Address [address] [place] [address] Phone Care Team Providers Care Cement Sprayer Helper Name Role Phone Oswaldo Serrano MD Primary Care Provider [phone] Angel Crowe DPM Unavailable Mora Fritz Unavailable Unavailable Ok Jorge MD Unavailable Orlin Urbina APRN, ASSISTANT ENGINEER Unavailable + [phone] Reason for Visit * Reason Comments Follow-up Diabetes Mellitus Encounter Details Date Type Department Care Team (Late st Contact Info) Description 12/30/2022 3:30 PM CDT Office Visit [facility] - [place] #2 [place] [address] Ok Jorge MD #[address] [address] Type 2 diabetes mellitus treated [...] Sign Reading Time Taken Comments Blood Pressure 122/78 12/30/2022 3:37 PM CDT Pulse 67 12/30/2022 3:37 PM CDT Temperature 36.6 ??C (97.8 ??F) 12/30/2022 3:37 PM CD T Respiratory Rate 20 12/30/2022 3:37 PM CDT Oxygen Saturation 98% 12/30/2022 3:37 PM CDT Inhaled Oxygen Concentration - - Weight 131.6 kg (290 lb 3.2 oz) 12/30/2022 3:37 PM CDT Height - - Body Mass Index 48.29 11/09/2022 1:25 PM DRYING AND WINDING SUPERVISOR documented in this encounter Patient Instructions * Patient Instructions* Ok Jorge MD - 12/30/2022 3:30 PM CDT Please take Lantus 19 units in the morning Please take NovoLog [...] Progress Notes * Ok Jorge MD - 12/30/2022 3:30 PM CDT Subject&Objective Loretta Penn is a 62-year-old woman who comes to the Endocrinology office to discuss management of type 2 diabetes mellitus. 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 Other pertinent health history includes hypertension, dyslipidemia, and obesity. The patient was initially diagnosed with diabetes >10 years ago. Currently, Ms. Penn takes Lantus 17 units in the morning and Humalog 16-13-10 units before each meal for management of hyperglycemia. The patient reports occasional, mild hypoglycemic events with intact symptoms of hypoglycemia awareness. Most episodes occur in the afternoon following lunch. T he patient denied severe low blood sugar events requiring third alliance party intervention. Review of her CGM download for the past two weeks showed morning values in the range of 150 to 200 mg/dL, lunch values ranging from 110 to 170 mg/dL, dinner values in the range of 110 to 180 mg/dL, and bedtime values ranging from 140 to 240 mg/dL. Average blood glucose was 182 mg/dL +/- 51. Hemoglobin A1c obtainedby POC testing today was 8%, improved from the previous measurement of 8.3% obtained in Sep 2022. Physical Exam Vitals: 12/30/22 1537 BP: 122/78 Pulse: 67 Resp: 20 Temp: 97.8 ??F (36.6 ??C) SpO2: 98% Weight: 290 lb 3.2 oz (131.6 kg) Constitutional: appears well-developed and well-nourished. No acute distress. Head: Normocephalic and atraumatic. Cardiovascular: Normal rate and regular rhythm Pulmonary/Chest: Effort normal and breath sounds normal Her CGM download was reviewed. Lab Results Component Value Date HGBA1C 8.0 (A) 12/30/2022 Assessment and Plan Assessment Loretta Penn is a middle-aged woman with type 2 diabetes mellitus whose overall glycemic control has improved over the last 3 months based on today???s Mxcsb-bq-Dolu hemoglobin A1c measurement. CGM download was notable for high blood glucose overnight, which is likely due to snack at bedtime. The patient is reluctant to give up snack at bedtime to avoid low blood sugar events while sleeping. Treatment consideration and lifestyle modification were discussed with her and her sister at some length. She will continue current medication for management of hyperglycemia. [...] including pre-visit review of separately obtained history, rpuc-bz-[id number] interaction performing medically appropriate physical exam, patientcounseling/education, interpretation of diagnostic results, care coordination and documentation was30 minute Ok Jorge MD 12/30/2022 documented in this encounter Plan of Treatment Upcoming Encounters Date Type Department Care Team (Late st Contact Info) Description 10/08/2024 2:15 PM DRYING AND WINDING SUPERVISOR Office Visit [facility] PHYS[facility]IAN [facility] UROLOGY #2 [place] [address] Orlin Urbina, OCEANOGRAPHY TEACHER, ASSISTANT ENGINEER #2 [place] [address] 10/18/2024 2:15 PM DRYING AND WINDING SUPERVISOR Appointment [facility] Mammography 1 [place] [address] Oswaldo Serrano MD #2 [facility] [address] [place] [address] Discharge Disposition: Discharged to home or Selfcare 11/29/2024 2:30 PM DRYING AND WINDING SUPERVISOR Office Visit [facility] Family Medicine [facility] #2 [place] [address] Oswaldo Serrano MD #2 [facility] [address] [place] [address] 11/30/2024 3:00 PM DRYING AND WINDING SUPERVISOR Office Visit [facility] - Endocrinology - [place] #2 [facility] [address] Ok Jorge MD #[address] [place] [address] documented as of this encounter Procedures Procedure Name Priority Date/Time Associated Diagnosis Comments POCT GLYCOSYLATED HEMOGLOBIN Routine 12/30/2022 3:35 PM CDT Type 2 diabetes mellitus treated with insulin (HCC) documented in this encounter Results * (ABNORMAL) POCT GLYCOSYLATED HEMOGLOBIN (12/30/2022 3:35 PM CDT) HGB-A1C 8.0(A) 4 - 6 Blood 12/30/2022 3:35 PM CDT Ok Jorge MD POINT OF [...] Depression Total Score: 0 10/14/19 11:00 AM DRYING AND WINDING SUPERVISOR documented as of this encounter Care Teams Cement Sprayer Helper Relationship Specialty Start Date End Date Oswaldo Serrano MD #2 [facility] [address] [place] [address] PCP - General Family Medicine 05/19/17 Angel Crowe DPM #2 [facility] [address] [place] [address] Consulting Physician Podiatry 06/16/17 Mora Fritz [place] Behavioral Health Navigator 06/15/18 Ok Jorge MD #2 [facility] [address] [place] [address] Consulting Physician Endocrinology 05/12/22 Orlin Urbina, OCEANOGRAPHY TEACHER, ASSISTANT ENGINEER #2 [place] [address] Nurse Practitioner Advanced Practice Nurse 11/09/22 documented as of this encounter
--- OUTSIDE RECORDS SUMMARY | 2024-10-07 00:23 | XMS_ITS | Encounter Summary ---
Author Organization [facility] Address [address] [place] [address] Phone Care Team Providers Care Senior Managing Director Name Role Phone Oswaldo Serrano MD Primary Care Provider [phone] Angel Crowe DPM Unavailable Mora Fritz Unavailable Unavailable Ok Jorge MD Unavailable Orlin Urbina APRN, TOOL CRIB SUPERVISOR Unavailable [phone] Encounter Details Date Type Department Care Team (Late st Contact Info) Description 12/06/2022 Refill [facility] End[facility]ology - [place] #[address] [place] [address] Ok Jorge MD #[address] [address] Social History Tobacco Use Types Packs/Day Years [...] Telephone Encounter - Ynes Zuniga, RN - 12/06/2022 3:08 PM LANDSCAPING CREW LEADER Requested Prescriptions Pending Prescriptions Disp Refills ??? Glucose Blood (True Metrix Blood Glucose Test) Strip 400 Each 3 Sig: TEST USING ONE STRIP FOUR TIMES DAILY NExt appt: 12/30/2022 SCAPING CREW LEADER documented in this encounter Plan of Treatment Upcoming Encounters Date Type Department Care Team (Late st Contact Info) Description 10/08/2024 2:15 PM LANDSCAPING CREW LEADER Office Visit [facility] UROLOGY #2 [place] [address] Orlin Urbina, TRAY DRIER, TOOL CRIB SUPERVISOR #2 [place] [address] 10/18/2024 2:15 PM LANDSCAPING CREW LEADER Appointment [facility] Mammography 1 [place] [address] Oswaldo Serrano MD #[address] [address] Discharge Disposition: Discharged to home or Selfcare 11/29/2024 2:30 PM LANDSCAPING CREW LEADER Office Visit [facility] Family Medicine [facility] #2 [place] [address] Oswaldo Serrano MD #[address] [address] 11/30/2024 3:00 PM LANDSCAPING CREW LEADER Office Visit [facility] Endocrinology [facility] #2 [place] [address] Ok Jorge MD #[address] [address] documented as of this encounter Visit Diagnoses Not on filedocumented in this encounter Additional Health Concerns Assessment Noted Time PHQ-9 Depression Total Score: 0 10/14/19 23 11:00 AM LANDSCAPING CREW LEADER documented as of this encounter Care Teams Senior Managing Director Relationship Specialty Start Date End Date Oswaldo Serrano MD #[address] [address] PCP - General Family Medicine 05/19/17 Angel Crowe DPM #[address] [address] Consulting Physician Podiatry 06/16/17 Mora Fritz [place] Behavioral Health Navigator 06/15/18 Ok Jorge MD #[address] [address] Consulting Physician Endocrinology 05/12/22 Orlin Urbina TRAY DRIER, TOOL CRIB SUPERVISOR #2 [place] [address] Nurse Practitioner Advanced Practice Nurse 11/09/22 documented as of this encounter
--- OUTSIDE RECORDS SUMMARY | 2024-10-07 00:23 | XMS_ITS | Encounter Summary ---
Author Organization [facility] Address [address] [place] [address] Phone Care Team Providers Care Reprographics Associate Name Role Phone Oswaldo Serrano MD Primary Care Provider [phone] Angel Crowe DPM Unavailable [phone] Mora Fritz Unavailable Unavailable Ok Jorge MD Unavailable Orlin Urbina APRN, HOME DELIVERY DRIVER Unavailable + [phone] Reason for Visit * Reason Onset Date Comments Medication Refill 11/10/2022 Encounter Details Date Type Department Care Team (Late st Contact Info) Description 11/10/2022 Refill [facility] Endocr[facility]ology - [place] #2 [place] [address] Ok Jorge MD #[address] [address] Medication Refill Social History Tobacco [...] Coronavirus/COVID-19? No / Unsure 11/09/2022 1:15 PM GENERAL MILLING SUPERINTENDENT documented as of this encounter Miscellaneous Notes * Telephone Encounter - Ok Jorge MD - 11/10/2022 9:31 PM CST Rx sent RAL MILLING SUPERINTENDENT * Telephone Encounter - Ynes Zuniga RN - 11/10/2022 3:56 PM GENERAL MILLING SUPERINTENDENT Requested Prescriptions Pending Prescriptions Disp Refills ??? NovoLOG FlexPen 100 UNIT/ML Solution Pen-injector 75 mL 1 Sig: INJECT 18 UNITS AT BREAKFAST, 18 UNITS AT LUNCH AND 14 UNITS AT DINNER -- ISF OF 1:30 IF GREATER THAN 140MG/DL UP TO 70 UNITS PER DAY ??? Insulin Pen Needle (PEN NEEDLES 31GX5/16 ) 31G X 8 MM Misc 400 Each 3 Sig: Use to inject insulin 4x daily. ??? insulin glargine (Basaglar KwikPen) 100 UNIT/ML Solution Pen-injector 15 mL 1 Si Units by Subcutaneous route every morning. Next appt: 12/30/2022 RAL MILLING SUPERINTENDENT documented in this encounter Plan of Treatment Upcoming Encounters Date Type Department Care Team (Late st Contact Info) Description 10/08/2024 2:15 PM GENERAL MILLING SUPERINTENDENT Office Visit [facility] UROLOGY #2 [place] [address] Orlin Urbina APRN, HOME DELIVERY DRIVER #2 [place] [address] 10/18/2024 2:15 PM GENERAL MILLING SUPERINTENDENT Appointment [facility] Mammography 1 [place] [address] Oswaldo Serrano MD #[address] [address] Discharge Disposition: Discharged to home or Selfcare 11/29/2024 2:30 PM GENERAL MILLING SUPERINTENDENT Office Visit [facility] - [place] #2 [place] [address] Oswaldo Serrano MD #[address] [address] 11/30/2024 3:00 PM GENERAL MILLING SUPERINTENDENT Office Visit [facility] - Endocrinology - [place] #2 [place] [address] Ok Jorge MD #[address] [place] [address] documented as of this encounter Visit Diagnoses Not on filedocumented in this encounter Additional Health Concerns Assessment Noted Time PHQ-9 Depression Total Score: 0 10/14/19 23 11:00 AM GENERAL MILLING SUPERINTENDENT documented as of this encounter Care Teams Reprographics Associate Relationship Specialty Start Date End Date Oswaldo Serrano MD #[address] [address] PCP - General Family Medicine 05/19/17 Angel Crowe DPM #[address] [facility] [address] [place] [address] Consulting Physician Podiatry 06/16/17 Mora Fritz Behavioral Health Navigator 06/15/18 Ok Jorge MD #[address] [facility] [address] [place] [address] Consulting Physician Endocrinology 05/12/22 Orlin Urbina APRN, HOME DELIVERY DRIVER #2 [place] [address] Nurse Practitioner Advanced Practice Nurse 11/09/22 documented as of this encounter
--- OUTSIDE RECORDS SUMMARY | 2024-10-07 00:23 | XMS_ITS | Encounter Summary ---
Author Organization [facility] Address [address] [place] [address] Phone Care Team Providers Care Retail Sales Lead Name Role Phone Oswaldo Serrano MD Primary Care Provider [phone] Angel Crowe DPM Unavailable [phone] Mora Fritz Unavailable Unavailable Ok Jorge MD Unavailable Reason for Visit * Reason Onset Date Comments Medication Refill 11/02/2022 Encounter Details Date Type Department Care Team (Late st Contact Info) Description 11/02/2022 Refill [facility] UROLOGY #2 [place] [address] Orlin Urbina APRN, LABORATORY ANIMAL CARE VETERINARIAN #2 [place] [address] Medication Refill Social History Tobacco Use Types [...] Coronavirus/COVID-19? No / Unsure 10/14/2022 11:06 AM METAL SPRAYING MACHINE OPERATOR documented as of this encounter Miscellaneous Notes * Telephone Encounter - Orlin Urbina APRN, CNP - 11/02/2022 11:41 AM METAL SPRAYING MACHINE OPERATOR Needs to keep OV for further refills. L SPRAYING MACHINE OPERATOR * Telephone Encounter - Vira Cordova RMA - 11/02/2022 8:33 AM CST Patient requested a refill of myrbetric, has a follow up appt scheduled on 11-09-22. L SPRAYING MACHINE OPERATOR documented in this encounter Plan of Treatment Upcoming Encounters Date Type Department Care Team (Late st Contact Info) Description 10/08/2024 2:15 PM METAL SPRAYING MACHINE OPERATOR Office Visit [facility] UR[facility] #2 [place] [id number] Orlin Urbina APRN, CNP #2 [place] [address] 10/18/2024 2:15 PM METAL SPRAYING MACHINE OPERATOR Appointment [facility] Mammography 1 [place] [id number] Oswaldo Serrano MD #[address] [address] Discharge Disposition: Discharged to home or Selfcare 11/29/2024 2:30 PM METAL SPRAYING MACHINE OPERATOR Office Visit [facility] - [facility] Medicine [facility] #2 [place] [address] Oswaldo Serrano MD #[address] [address] 11/30/2024 3:00 PM METAL SPRAYING MACHINE OPERATOR Office Visit [facility] Endocr[facility]ology - [place] #2 [place] [address] Ok Jorge MD #[address] [address] documented as of this encounter Visit Diagnoses Not on filedocumented in this encounter Additional Health Concerns Assessment Noted Time PHQ-9 Depression Total Score: 0 10/14/19 23 11:00 AM METAL SPRAYING MACHINE OPERATOR documented as of this encounter Care Teams Retail Sales Lead Relationship Specialty Start Date End Date Oswaldo Serrano MD #[address] [address] PCP - General Family Medicine 05/19/17 Angel Crowe DPM #[address] [address] Consulting Physician Podiatry 06/16/17 Mora Fritz [place] Behavioral Health Navigator 06/15/18 Ok Jorge MD #[address] [address] Consulting Physician Endocrinology 05/12/22 documented as of this encounter
--- OUTSIDE RECORDS SUMMARY | 2024-10-07 00:23 | XMS_ITS | Encounter Summary ---
Author Organization [facility] Address [address] [place] [address] Phone Care Team Providers Care Streetcar Repairer Helper Name Role Phone Oswaldo Serrano MD Primary Care Provider [phone] Angel Crowe DPM Unavailable [phone] Mora Fritz Unavailable Unavailable Ok Jorge MD Unavailable Orlin Urbina APRN, COLD PRESS LOADER Unavailable [phone] Reason for Visit * Reason Onset Date Comments Medication Refill 12/23/2022 Encounter Details Date Type Department Care Team (Late st Contact Info) Description 12/23/2022 [facility]ill [facility] [place] #2 [place] [address] Ok Jorge MD #[address] [address] Medication Refill Social History Tobacco [...] Telephone Encounter - Ynes Zuniga RN - 12/23/2022 1:56 PM CDT Requested Prescriptions Pending Prescriptions Disp Refills ??? Glucose Blood (True Metrix Blood Glucose Test) Strip 400 Each 3 Sig: TEST USING ONE STRIP FOUR TIMES DAILY E11.9, insulin dependent Next appt: 12/30/2022 documented in this encounter Plan of Treatment Upcoming Encounters Date Type Department Care Team (Late st Contact Info) Description 10/08/2024 2:15 PM KILN FEEDER Office Visit [facility] #2 [place] [address] Orlin Urbina, ORGANIZATIONAL DEVELOPMENT CONSULTANT, COLD PRESS LOADER #2 [place] [address] 10/18/2024 2:15 PM KILN FEEDER Appointment [facility] Mammography 1 [place] [address] Oswaldo Serrano MD #[address] [address] Discharge Disposition: Discharged to home or Selfcare 11/29/2024 2:30 PM KILN FEEDER Office Visit [facility] Family Medicine [facility] #2 [place] [address] Oswaldo Serrano MD #[address] [address] 11/30/2024 3:00 PM KILN FEEDER Office Visit [facility] Endocrinology [facility] #2 [place] [address] Ok Joreg MD #[address] [address] documented as of this encounter Visit Diagnoses Not on filedocumented in this encounter Additional Health Concerns Assessment Noted Time PHQ-9 Depression Total Score: 0 10/14/19 23 11:00 AM KILN FEEDER documented as of this encounter Care Teams Streetcar Repairer Helper Relationship Specialty Start Date End Date Oswaldo Serrano MD #[address] [address] PCP - General Family Medicine 05/19/17 Angel Crowe DPM #[address] [address] Consulting Physician Podiatry 06/16/17 Mora Fritz [place] Behavioral Health Navigator 06/15/18 Ok Jorge MD #[address] [address] Consulting Physician Endocrinology 05/12/22 Orlin Urbina, ORGANIZATIONAL DEVELOPMENT CONSULTANT, COLD PRESS LOADER #2 [place] [address] Nurse Practitioner Advanced Practice Nurse 11/09/22 documented as of this encounter
--- OUTSIDE RECORDS SUMMARY | 2024-10-07 00:23 | XMS_ITS | Encounter Summary ---
Author Organization [facility] Address [address] [place] [address] Phone Care Team Providers Care Cookie Breaker Name Role Phone Oswaldo Serrano MD Primary Care Provider [phone] Angel Crowe DPM Unavailable [phone] Mora Fritz Unavailable Unavailable Ok Jorge MD Unavailable Orlin Urbina APRN, EMBROIDERY CUTTER Unavailable Reason for Visit * Reason Comments Medication Refill Encounter Details Date Type Department Care Team (Late st Contact Info) Description 12/23/2022 Refill [facility] #[address] [place] [address] Orlin Urbina APRN, EMBROIDERY CUTTER #2 [place] [address] Medication Refill Social History Tobacco Use Types [...] Coronavirus/COVID-19? No / Unsure 11/25/2022 12:13 PM CARVING MACHINE OPERATOR documented as of this encounter Plan of Treatment Upcoming Encounters Date Type Department Care Team (Late st Contact Info) Description 10/08/2024 2:15 PM CARVING MACHINE OPERATOR Office Visit [facility] UROLOGY #2 [place] [address] Orlin Urbina, FOOD SERVICE ORDER CLERK, EMBROIDERY CUTTER #2 [place] [address] 10/18/2024 2:15 PM CARVING MACHINE OPERATOR Appointment [facility] Mammography 1 [place] [address] Oswaldo Serrano MD #[address] [address] Discharge Disposition: Discharged to home or Selfcare 11/29/2024 2:30 PM CARVING MACHINE OPERATOR [facility] #2 [place] [address] Oswaldo Serrano MD #[address] [address] 11/30/2024 3:00 PM CARVING MACHINE OPERATOR Office Visit [facility] - [place] #2 [place] [address] Ok Jorge MD [address] [address] documented as of this encounter Visit Diagnoses Not on filedocumented in this encounter Additional Health Concerns Assessment Noted Time PHQ-9 Depression Total Score: 0 10/14/19 23 11:00 AM CARVING MACHINE OPERATOR documented as of this encounter Care Teams Cookie Breaker Relationship Specialty Start Date End Date Oswaldo Serrano MD #[address] [address] PCP - General Family Medicine 05/19/17 Angel Crowe DPM #[address] [address] Consulting Physician Podiatry 06/16/17 Mora Fritz MD Behavioral Health Navigator 06/15/18 Ok Jorge MD #[address] [address] Consulting Physician Endocrinology 05/12/22 Orlin Urbina FOOD SERVICE ORDER CLERK, EMBROIDERY CUTTER #2 [place] [address] Nurse Practitioner Advanced Practice Nurse 11/09/22 documented as of this encounter
--- OUTSIDE RECORDS SUMMARY | 2024-10-07 00:23 | XMS_ITS | Encounter Summary ---
Author Organization [facility] Address [address] [place] [address] Phone Care Team Providers Care Laborer Plumbing Name Role Phone Oswaldo Serrano MD Primary Care Provider [phone] Angel Crowe DPM Unavailable Mora Fritz Unavailable Unavailable Ok Jorge MD Unavailable Orlin Urbina APRN, INDUSTRIAL REAL ESTATE AGENT Unavailable + [phone] Reason for Visit * Reason Comments Medication Refill Encounter Details Date Type Department Care Team (Late st Contact Info) Description 11/27/2022 Refill [facility] [place] [facility] #2 [place] [address] Orlin Urbina APRN, INDUSTRIAL REAL ESTATE AGENT #2 [place] [address] Medication Refill Social History Tobacco Use Types [...] Coronavirus/COVID-19? No / Unsure 11/25/2022 12:13 PM BARREL ROLLER OPERATOR documented as of this encounter Plan of Treatment Upcoming Encounters Date Type Department Care Team (Late st Contact Info) Description 10/08/2024 2:15 PM BARREL ROLLER OPERATOR Office Visit [facility] UROLOGY #2 [place] [address] Orlin Urbina, CUP TRIMMING MACHINE OPERATOR, INDUSTRIAL REAL ESTATE AGENT #2 [place] [address] 10/18/2024 2:15 PM BARREL ROLLER OPERATOR Appointment [facility] Mammography 1 [place] [address] Oswaldo Serrano MD #[address] [address] Discharge Disposition: Discharged to home or Selfcare 11/29/2024 2:30 PM BARREL ROLLER OPERATOR Office [facility] - Family Medicine [facility] #2 [place] [address] Oswaldo Serrano MD #[address] [address] 11/30/2024 3:00 PM BARREL ROLLER OPERATOR Office Visit [facility] - [place] #2 [place] [address] Ok Jorge MD [address] [address] documented as of this encounter Visit Diagnoses Not on filedocumented in this encounter Additional Health Concerns Assessment Noted Time PHQ-9 Depression Total Score: 0 10/14/19 23 11:00 AM BARREL ROLLER OPERATOR documented as of this encounter Care Teams Laborer Plumbing Relationship Specialty Start Date End Date Oswaldo Serrano MD #[address] [address] PCP - General Family Medicine 05/19/17 Angel Crowe DPM #[address] [address] Consulting Physician Podiatry 06/16/17 Mora Fritz [place] Behavioral Health Navigator 06/15/18 Ok Jorge MD #[address] [address] Consulting Physician Endocrinology 05/12/22 Orlin Urbina CUP TRIMMING MACHINE OPERATOR, INDUSTRIAL REAL ESTATE AGENT #2 [place] [address] Nurse Practitioner Advanced Practice Nurse 11/09/22 documented as of this encounter
--- OUTSIDE RECORDS SUMMARY | 2024-10-07 00:23 | XMS_ITS | Encounter Summary ---
Author Organization [facility] Care Team Providers Care Occupational Health Professional Name Role Phone Oswaldo Serrano MD Primary Care Provider [phone] Anegl Crowe DPM Unavailable [phone] Mora Fritz Unavailable Unavailable Ok Jorge MD Unavailable Encounter Details Date Type Department Care Team (Latest Contact Info) Description 10/14/2022 Travel Social History Tobacco Use Types Packs/Day [...] Coronavirus/COVID-19? No / Unsure 10/14/2022 11:06 AM CDL FLATBED TRUCK DRIVER documented as of this encounter Functional Status * Question Answer Date of Assessment Author Little interest or pleasure in doing things Not at all 10/14/2022 11:00 AM Sylvia Brooks RMA Feeling down, depressed, or hopeless Not at all 10/14/2022 11:00 AM Sylvia Brooks RMA * Over the past 2 weeks, how often have you been bothered by any of the following problems? Question Answer Date of Assessment Author Patient Health Questionnaire -2 Score 0 10/14/2022 11:00 AM Sylvia Brooks RMA documented as of this encounter Plan of Treatment Upcoming Encounters Date Type Department Care Team (Late st Contact Info) Description 10/08/2024 2:15 PM CDL FLATBED TRUCK DRIVER Office Visit [facility] UROLOG[facility] #2 [place] [address] Orlin Urbina, PLANT TECHNICIAN, QUEEN PRODUCER #2 [place] [address] 10/18/2024 2:15 PM CDL FLATBED TRUCK DRIVER [facility] 1 [place] [address] Oswaldo Serrano MD #[address] [address] Discharge Disposition: Discharged to home or Selfcare 11/29/2024 2:30 PM CDL FLATBED TRUCK DRIVER [facility] #2 [place] [address] Oswaldo Serrano MD #[address] [address] 11/30/2024 3:00 PM CDL FLATBED TRUCK DRIVER Office Visit [facility] - Endocrinology [facility] #2 [place] [address] Ok Jorge MD #2 [place] [facility] [address] [place] [address] documented as of this encounter Visit Diagnoses Not on filedocumented in this encounter Additional Health Concerns Assessment Noted Time PHQ-9 Depression Total Score: 0 10/14/19 23 11:00 AM CDL FLATBED TRUCK DRIVER documented as of this encounter Care Teams Occupational Health Professional Relationship Specialty Start Date End Date Oswaldo Serrano MD [address] [address] PCP - General Family Medicine 05/19/17 Angel Crowe DPM #[address] [address] Consulting Physician Podiatry 06/16/17 Mora Fritz [place] Behavioral Health Navigator 06/15/18 Ok Jorge MD #[address] [address] Consulting Physician Endocrinology 05/12/22 documented as of this encounter
--- OUTSIDE RECORDS SUMMARY | 2024-10-07 00:23 | XMS_ITS | Encounter Summary ---
Author Organization [facility] Address [address] [place] [address] Phone Care Team Providers Care Manufacturing Plant Manager Name Role Phone Oswaldo Serrano MD Primary Care Provider [phone] Angel Crowe DPM Unavailable Mora Fritz Unavailable Unavailable Ok Jorge MD Unavailable Reason for Visit * Reason Onset Date Comments Medication Refill 11/08/2022 Encounter Details Date Type Department Care Team (Late st Contact Info) Description 11/08/2022 Refill [facility] - [place] #2 [place] [address] Oswaldo Serrano MD #[address] [address] Medication Refill Social History Tobacco Use Types [...] Coronavirus/COVID-19? No / Unsure 10/14/2022 11:06 AM UPPER INSPECTOR documented as of this encounter Miscellaneous Notes * Telephone Encounter - Mica Morales RN - 11/08/2022 3:36 PM CST Medication failed the protocol, provider to review and approve the medication order if appropriate. Requested Prescriptions Pending Prescriptions Disp Refills Cyanocobalamin (B-12) 500 MCG Tablet 90 Tablet 2 Sig: Take 1 Tablet by mouth daily. Not Delegated - Off Protocol Failed - 11/08/2022 3:19 PM Failed - This refill cannot be [...] 90 days and meeting all other requirements R INSPECTOR documented in this encounter Plan of Treatment Upcoming Encounters Date Type Department Care Team (Late st Contact Info) Description 10/08/2024 2:15 PM UPPER INSPECTOR Office Visit [facility] UROLOGY #2 [place] [address] Orlin Urbina RESOURCE MANAGEMENT SPECIALIST, DIRECTOR CORRECTIONAL AGENCY #2 [place] [address] 10/18/2024 2:15 PM UPPER INSPECTOR Appointment [facility] Mammography 1 [place] [address] Oswaldo Serrano MD #[address] [address] Discharge Disposition: Discharged to home or Selfcare 11/29/2024 2:30 PM UPPER INSPECTOR Office Visit [facility] - [place] #2 [place] [address] Oswaldo Serrano MD #[address] [address] 11/30/2024 3:00 PM UPPER INSPECTOR Office Visit [facility] - [place] #2 [place] [address] Ok Jorge MD #[address] [address] documented as of this encounter Visit Diagnoses Not on filedocumented in this encounter Additional Health Concerns Assessment Noted Time PHQ-9 Depression Total Score: 0 10/14/19 23 11:00 AM UPPER INSPECTOR documented as of this encounter Care Teams Manufacturing Plant Manager Relationship Specialty Start Date End Date Oswaldo Serrano MD #[address] [address] PCP - General Family Medicine 05/19/17 Angel Crowe DPM #2 [facility] [address] [place] [address] Consulting Physician Podiatry 06/16/17 Mora Fritz Behavioral Health Navigator 06/15/18 Ok Jorge MD #2 [facility] [address] [place] [address] Consulting Physician Endocrinology 05/12/22 documented as of this encounter
--- OUTSIDE RECORDS SUMMARY | 2024-10-07 00:23 | XMS_ITS | Encounter Summary ---
Author Organization [facility] Address [address] [place] [address] Phone Care Team Providers Care Correspondence Review Clerk Name Role Phone Oswaldo Serrano MD Primary Care Provider [phone] Angel Crowe DPM Unavailable Mora Fritz Unavailable Unavailable Ok Jorge MD Unavailable Reason for Visit * Reason Comments Medication Management Abdominal Pain LLQ Urinary Pain Encounter Details Date Type Department Care Team (Late st Contact Info) Description 08/26/2022 2:00 PM PUBLIC AREA ATTENDANT [facility] Visit [facility] [address] [place] [phone] Connor Yuan APRN, ASSEMBLING MOTOR BUILDER [address] [address] Primary hypertension (Primary Dx); Urinary symptom or sign; Encounter for immunization; Screening for colon cancer Discharge Disposition: Discharged to home or Selfcare [...] Coronavirus/COVID-19? No / Unsure 08/26/2022 1:55 PM PUBLIC AREA ATTENDANT documented as of this encounter Last Filed Vital Signs Vital Sign Reading Time Taken Comments Blood Pressure 114/60 08/26/2022 2:03 PM PUBLIC AREA ATTENDANT Pulse 83 08/26/2022 2:03 PM PUBLIC AREA ATTENDANT Temperature 36.1 ??C (97 ??F) 08/26/2022 2:03 PM PUBLIC AREA ATTENDANT Respiratory Rate 14 08/26/2022 2:03 PM PUBLIC AREA ATTENDANT Oxygen Saturation 95% 08/26/2022 2:03 PM PUBLIC AREA ATTENDANT Inhaled Oxygen Concentration - - Weight 134.5 kg (296 lb 9.6 oz) 08/26/2022 2:03 PM PUBLIC AREA ATTENDANT Height 167.6 cm (5' 6 ) 08/26/2022 2:03 PM PUBLIC AREA ATTENDANT Body Mass Index 47.87 08/26/2022 2:03 PM PUBLIC AREA ATTENDANT documented in this encounter Progress Notes * Mike Ceballos, ONEIL - 08/26/2022 2:00 PM CST Loretta Penn, 61 y.o., female is here for Medication Management, Abdominal Pain (LLQ), and Urinary Pain Medication Refills: Patient reports/denies need for medication refills. Orders Pended: no Requested Prescriptions No prescriptions requested or ordered in this encounter Home Medications Medication Sig Start Date End Date Taking? Authorizing Provider albuterol 108 (90 Base) MCG/ACT Aerosol Solution 02/14/21 Yes Nica Muniz MD albuterol 108 (90 Base) MCG/ACT Aerosol Solution take 1-2 Puffs by inhalation every 4 hours as needed for Cough. Patient not taking: Reported on 08/26/2022 10/07/21 Oswaldo Serrano MD Blood Glucose Monitoring Suppl Device Test blood glucose 4 times daily. E11.9, insulin dependent 12/19/19 Yes Ok Jorge MD Blood Pressure Monitoring (Blood Pressure Cuff) [facility] Dispense battery-powered arm cuff (Dx: I10) Patient not taking: Reported on 08/26/2022 12/19/20 Oswaldo Serrano MD carvedilol (COREG) 25 MG Tablet 25 mg 2 times daily. 05/06/17 Yes Nica Muniz MD Continuous Blood Gluc Color Paste Mixer (Dexcom G6 Color Paste Mixer) Device 12/03/21 Nica Muniz MD Continuous Blood Gluc Sensor (Dexcom G6 Sensor) Misc 12/03/21 Nica Muniz MD Continuous Blood Gluc Transmit (Dexcom G6 Transmitter) [facility] 12/03/21 Yes Nica Muniz MD Cyanocobalamin (B-12) [...] MG TABLET SR 24 HR 08/17/22 Yes Nica Muniz MD nitrofurantoin, macrocrystal-monohydrate, (MACROBID) 100 MG Capsule Take 100 mg by mouth 2 times daily. Patient not taking: Reported on 08/26/2022 05/23/22 Nica Muniz MD nortriptyline (PAMELOR) 10 MG Capsule TAKE [...] TAKE ONE CAPSULE BY MOUTH EVERY DAY 01/22/22 YesOswaldo Serrano MD potassium chloride SA (KLORCON M) 20 MEQ Tablet Controlled Release Take 1 Tablet by mouth daily. 01/25/22 Yes Oswaldo Serrano MD potassium chloride SA (KLORCON M) 20 MEQ Tablet Controlled Release potassium chloride 20 mEq tablet,ER particles/crystals Patient not taking: Reported on 08/26/2022 10/10/1968 ProviderNica MD rivaroxaban (Xarelto) 20 MG Tablet Take [...] Health Maintenance Due Topic Date Due ??? Pneumococcal Immunization (0-64 years) (1 - PCV) Never done ??? Colorectal Cancer Screening Never done ??? Zoster Immunization (1 of 2) Never done ??? Dilated Eye Exam 07/18/2019 ??? Pap Smear 06/06/2020 ??? SARS-COV-2 Immunization (3 - Booster for Pfizer series) 03/15/2021 ??? Influenza Immunization (1) 06/10/2022 Orders Pended: no IC AREA ATTENDANT * Sylvia Cain RMA - 08/26/2022 2:00 PM CST Urine dipstick shows negative for all components, positive for glucose. IC AREA ATTENDANT * Connor Yuan, JOHN, ASSEMBLING MOTOR BUILDER - 08/26/2022 2:00 PM CST CC:Subjective: CC: F/U for HTN and strong smelling urine Loretta Penn is a 61-year-old female who presents to the office today to follow-up for hypertension and strong smelling urine. Has history of frequent UTIs. Reports having some vaginal irritation. She has a mild intellectual disability so difficulty with a explaining her symptoms.Blood pressure well controlled in the office today. Due for multiple preventative examination is aswell as pneumococcal and influenza vaccinations today. She has no other acute complaints this time. The history is provided by the patient, a relative and medical records. The history is limited by adevelopmental delay. No descriptive catalog librarian was used. Medication Management Pertinent negatives include no abdominal pain, arthralgias, chest pain, chills, congestion, coughing, fatigue, fever, headaches, myalgias, nausea, numbness, rash, sore throat or vomiting. Abdominal Pain Pertinent negatives include no arthralgias, constipation, diarrhea, dysuria, fever, frequency, headaches, hematuria, myalgias, nausea or vomiting. Urinary Pain Pertinent negatives include no chills, flank pain, frequency, hematuria, nausea, urgency or vomiting. Review of Systems Constitutional: Negative for chills, [...] pain, constipation, diarrhea, nausea and vomiting. Genitourinary: Positive for vaginal pain. Negative for dysuria, flank pain, frequency, hematuria and urgency. Musculoskeletal: Negative for arthralgias, back pain and myalgias. Skin: Negative for rash and wound. Neurological: Negative for dizziness, seizures, syncope, numbness and headaches. Psychiatric/Behavioral: Negative for suicidal ideas. Allergies Allergies Allergen Reactions ??? Sulfa Antibiotics Unknown and Hives ??? Sulfamethoxazole-Trimethoprim Hives Medications Current Outpatient Medications: ??? albuterol 108 (90 Base) MCG/ACT Aerosol Solution, take 1-2 Puffs by inhalation every 4 hours asneeded for Cough., Disp: 1 g, Rfl: 0 ??? Blood Glucose Monitoring Suppl Device, Test blood glucose 4 times daily. E11.9, insulin dependent, Disp: 1 Each, Rfl: 0 ??? carvedilol (COREG) 25 MG Tablet, 25 mg 2 times daily., Disp: , Rfl: ??? Continuous Blood Gluc Transmit (Dexcom G6 Transmitter) [facility], , Disp: , Rfl: ??? Cyanocobalamin (B-12) 500 MCG Tablet, TAKE ONE TABLET BY MOUTH EVERY DAY, Disp: 90 Tablet, Rfl:2 ??? Dapagliflozin Propanediol (Farxiga) 10 MG Tablet, Take by mouth., Disp: , Rfl: ??? dilTIAZem (CARDIZEM) 30 MG Tablet, TK 1 T PO TID, Disp: , Rfl: 0 ??? docusate sodium (COLACE) 100 MG Capsule, TAKE ONE CAPSULE BY MOUTH TWICE DAILY, Disp: 60 Capsule, Rfl: 2 ??? Entresto 24-26 MG Tablet, , Disp: , Rfl: ??? escitalopram (LEXAPRO) 10 MG Tablet, TAKE ONE TABLET BY MOUTH EVERY DAY, Disp: 90 Tablet, Rfl: 1 ??? fluconazole (DIFLUCAN) 150 MG Tablet, Take 1 Tablet by mouth once for 1 dose., Disp: 1 Tablet, Rfl: 0 ??? furosemide (LASIX) 40 MG Tablet, TAKE ONE TABLET BY MOUTH EVERY DAY, Disp: 90 Tablet, Rfl: 2 ??? Glucose Blood (True Metrix Blood Glucose Test) Strip, TEST USING ONE STRIP FOUR TIMES DAILY, Disp: 400 Each, Rfl: 3 ??? insulin degludec (Tresiba FlexTouch) 100 UNIT/ML Solution Pen-injector, Tresiba FlexTouch [id number] unit/mL (3 mL) insulin pen, Disp: , Rfl: ??? insulin glargine (LANTUS, BASAGLAR) 100 UNIT/ML Solution Pen-injector, 20 Units by Subcutaneousroute every morning., Disp: 30 mL, Rfl: 1 ??? Insulin Pen Needle (PEN NEEDLES 31GX5/16 ) 31G X 8 MM Misc, Use to inject insulin 4x daily., Disp: 400 Each, Rfl: 3 ??? Insulin Syringe-Needle U-100 (TRUEPLUS INSULIN SYRINGE) 31G X 5/16 0.5 ML Misc, USE 4 TIMES DAILY, Disp: 400 Each, Rfl: 3 ??? Lancets Misc, Test four times daily. E11.9, insulin dependent, Disp: 400 Lancet, Rfl: 3 ??? levothyroxine (SYNTHROID) 50 MCG Tablet, TAKE ONE TABLET BY MOUTH EVERY MORNING, Disp: 90 Tablet, Rfl: 2 ??? Myrbetriq 50 MG TABLET SR 24 HR, , Disp: , Rfl: ??? nortriptyline (PAMELOR) 10 MG Capsule, TAKE ONE CAPSULE BY MOUTH ONE TIME DAILY IN THE EVENING,Disp: 90 Capsule, Rfl: 1 ??? NovoLOG FlexPen 100 UNIT/ML Solution Pen-injector, INJECT 18 UNITS AT BREAKFAST, 18 UNITS AT LUNCH AND 14 UNITS AT DINNER -- ISF OF 1:30 IF GREATER THAN 140MG/DL UP TO 70 UNITS PER DAY, Disp: 75 mL, Rfl: 1 ??? omeprazole (PriLOSEC) 20 MG CAPSULE DELAYED RELEASE, TAKE ONE CAPSULE BY MOUTH EVERY DAY, Disp:90 Capsule, Rfl: 2 ??? potassium chloride SA (KLORCON M) 20 MEQ Tablet Controlled Release, Take 1 Tablet by mouth daily., Disp: 90 Tablet, Rfl: 3 ??? rivaroxaban (Xarelto) 20 MG Tablet, Take 20 mg by mouth daily (with dinner). Take with food., Disp: , Rfl: Past Medical History Past Medical History Positives Diagnosis Date ??? Atrial fibrillation and flutter (HCC) ??? CHF, chronic (HCC) ??? Diabetes mellitus (HCC) ??? Hepatitis C ??? Hypertension ??? Pacemaker Past Surgical History Past Surgical History: Procedure Laterality Date ??? APPENDECTOMY ??? APPENDECTOMY ??? HC DEFIB CARD RESYNCHRONIZATION 1/DF4 IS4 EA/1 ??? TOOTH EXTRACTION All of her teeth ??? WISDOM TOOTH EXTRACTION Family History Family History Problem Relation Age of Onset ??? Diabetes Mother ??? Hypertension Mother ??? Heart Disease Mother ??? Diabetes Father ??? Heart Disease Father ??? Heart Attack Father ??? Hypertension Father Social History Social History Tobacco Use ??? Smoking status: Never ??? Smokeless tobacco: Never Vaping Use ??? Vaping Use: Never used Substance Use Topics ??? Alcohol use: No ??? Drug use: No Objective: Physical Exam Vitals and nursing note reviewed. Constitutional: General: She is not in acute distress. Appearance: She is well-developed. She is morbidly obese. She is not diaphoretic. HENT: Head: [...] person, place, and time. Psychiatric: Behavior: Behavior normal. Thought Content: Thought content normal. Judgment: Judgment normal. Vitals: 08/26/22 1403 BP: 114/60 BP Location: Right Arm BP Position: Sitting BP Cuff Size: Large Pulse: 83 Resp: 14 Temp: 97 ??F (36.1 ??C) TempSrc: Temporal SpO2: 95% Weight: 296 lb 9.6 oz (134.5 kg) Height: 5' 6 (1.676 m) Assessment and Plan See Diagnoses, Orders, Follow-up, and Instructions 1. Primary hypertension 2. Urinary symptom or sign - POCT UA AUTOMATED W/O MICRO - fluconazole (DIFLUCAN) 150 MG Tablet; Take 1 Tablet by mouth once for 1 dose. Dispense: 1 Tablet;Refill: 0 3. Encounter for immunization - INFLUENZA VACCINE QUAD IM - INFLUENZA IMMUNIZATION QUESTIONS - PNEUMOCOCCAL CONJUGATE VACCINE (PCV20) IM - PCV-20 IMMUNIZATION QUESTIONS 4. Screening for colon cancer - COLOGUARD; Future - COLOGUARD Hypertension. Stable. Continue current medications. Urinary symptoms. Point of care urinalysis negative for UTI. Will give fluconazole for possible vaginal yeast infection. Influenza pneumococcal vaccination today. Cologuard for colon cancer screening. Follow-up office PCP in 3 months. I discussed all new medications and potential side effects or risks associated with them. Patient is to contact our office with any concerns. Patient instructions and educational materials were given to the patient. Patient (or patient sales representative malt liquors) demonstrates verbal understanding of instructions given. Patient [...] referring physician. Documentation for this visit on 08/26/22 was completed using a template. I have seen and examined the patient. Everything documented was personally performed at this visit with the necessary additions, deletions and changes made as appropriate. IC AREA ATTENDANT documented in this encounter Plan of Treatment Upcoming Encounters Date Type Department Care Team (Late st Contact Info) Description 10/08/2024 2:15 PM PUBLIC AREA ATTENDANT Office Visit [facility] #2 [place] [address] Orlin Urbina APRN, ASSEMBLING MOTOR BUILDER #[address] [place] [address] 10/18/2024 2:15 PM PUBLIC AREA ATTENDANT [facility]ointment [facility] [address] [place] [address] Oswaldo Serrano MD #[address] [address] Discharge Disposition: Discharged to home or Selfcare 11/29/2024 2:30 PM PUBLIC AREA ATTENDANT Office Visit [facility] - [facility] [address] [place] [address] Oswaldo Serrano MD #[address] [address] 11/30/2024 3:00 PM PUBLIC AREA ATTENDANT [facility] [place] #2 [place] [address] Ok Jorge MD #[address] [address] documented as of this encounter Procedures Procedure Name Priority Date/Time Associated Diagnosis Comments COLOGUARD Routine 09/23/2022 4:00 PM PUBLIC AREA ATTENDANT Screening for colon cancer POCT UA AUTOMATED W/O MICRO Routine 08/26/2022 2:52 PM PUBLIC AREA ATTENDANT Urinary symptom or sign documented in this encounter Results * COLOGUARD (09/23/2022 4:00 PM PUBLIC AREA ATTENDANT) Cologuard Negative Negative [facility] Comment: NEGATIVE TEST RESULT. A negative [...] screened with both Cologuard and colonoscopy. (Deandra Lane al, N Engl J Med 2014;370(14):4014-6079) The normal value (reference range) for this assay is negative. COLOGUARD RE-SCREENING RECOMMENDATION: Periodic colorectal cancer screening is an important part of preventive healthcare for asymptomatic individuals at average risk for colorectal cancer. ??Following a negative Cologuard result, the [place] [employer] Society and U.S. Multi-Society Task Force screening guidelines recommend a Cologuard re-screening interval of 3 years. References: [place] [employer] Guideline for Colorectal Cancer Screening: https://www.cancer.org/cancer/ohgxb-lbdxoz-uofjmf/xpmfbbvcm-ypctuxnqx-penyfrr/ acs-recommendations.html.; Chavez GREGG, Rob CR, Elroy KHAN, Colorectal Cancer Screening: Recommendations for Physicians and Patients from the U.S. Multi-Society Task Force on Colorectal Cancer Screening , Am J Gastroenterology 2017; 112:5864-3286. TEST DESCRIPTION: Composite algorithmic analysis of stool [...] screened with both Cologuard and colonoscopy. (Deandra Lane al, N Engl J Med 2014;370(14):2870-6159.) Cologuard may produce a false negative or false positive result (no colorectal cancer or precancerous polyp present at colonoscopy follow up). A negative Cologuard test result does not guarantee the absence of CRC or advanced adenoma (pre-cancer). The current Cologuard screening interval is every 3 years. ([place] [employer] Society and U.S. Multi-Society Task Force). Cologuard performance data in a 10,000 patient pivotal study using colonoscopy as the reference method can be accessed at the following location: www.[employer]/results. Additional description of the Cologuard test process, warnings and precautions can be found at www.[employer].com. Stool 09/23/2022 4:00 PM PUBLIC AREA ATTENDANT 09/25/2022 10:38 AM PUBLIC AREA ATTENDANT us Connor Yuan APRN, ASSEMBLING MOTOR BUILDER BODY FLUIDS & ST OOLS ORDERABLES Final Result [facility] [address] [place] [address], [employer] [address] [place] [address] * (ABNORMAL) POCT UA AUTOMATED W/O MICRO (08/26/2022 2:52 PM PUBLIC AREA ATTENDANT) POC UA SPECIFIC GRAVITY 1.010 URINE PH [...] INSTRUMENT Negative Negative Alec/uL POC URINE COLOR Light yellow POC URINE CLARITY Slightly Cloudy Urine 08/26/2022 2:52 PM PUBLIC AREA ATTENDANT Connor Yuan APRN, ASSEMBLING MOTOR BUILDER POINT OF CARE TE STING (MANUAL) Final Result documented in this encounter Visit Diagnoses Diagnosis Primary hypertension- Primary Unspecified essential hypertension Urinary symptom or sign Encounter for immunization Need for other specified prophylactic vaccination against single bacterial disease Screening for colon cancer Special screening for malignant neoplasms, colon documented in this encounter Additional Health Concerns Assessment Noted Time PHQ-9 Depression Total Score: 2 07/18/20 20 4:26 PM CDT documented as of this encounter Care Teams Correspondence Review Clerk Relationship Specialty Start Date End Date Oswaldo Serrano MD #[address] [address] PCP - General Family Medicine 05/19/17 Angel Crowe DPM #[address] [address] Consulting Physician Podiatry 06/16/17 Mora Fritz [place] Behavioral Health Navigator 06/15/18 Ok Jorge MD #[address] [address] Consulting Physician Endocrinology 05/12/22 documented as of this encounter
--- OUTSIDE RECORDS SUMMARY | 2024-10-07 00:23 | XMS_ITS | Encounter Summary ---
Author Organization [facility] Address [address] [facility] [place] [address] Phone Care Team Providers Care Ear Pull Machine Operator Name Role Phone Oswaldo Serrano MD Primary Care Provider [phone] Angel Crowe DPM Unavailable Mora Fritz Unavailable Unavailable Ok Jorge MD Unavailable Reason for Visit * Reason Onset Date Comments ED Follow-up 09/16/2022 Encounter Details Date Type Department Care Team (Late st Contact Info) Description 09/16/2022 Telephone [facility] [address] [place] [address] Oswaldo Serrano MD #[address] [address] ED Follow-up Social History Tobacco Use Types Packs/Day [...] Coronavirus/COVID-19? No / Unsure 09/14/2022 2:10 PM SKINNER PELTS documented as of this encounter Miscellaneous Notes * Telephone Encounter - Molly Rayo, RN - 09/16/2022 1:53 PM CST S: Dilia, on PRD, is calling with questions about follow up A: Seen on 08/26 for pneumonia shot and flu shot Started feeling sick Tuesday afterward and sister thought it was from shot She was sick through Thanksgiving On 09/06 Dilia took her to emergency room She was diagnosed with RSV She is doing better now R: Does this RN recommend emergency room follow up? Advised yes, recommend emergency room follow up. Gave appointment: All Patient Appointments Provider Department Dept Phone 10/14/2022 11:15 AM Oswaldo Serrano [facility] - Family Medicine [facility] [phone] She verbalized understanding of appointment date, time, and location. NER PELTS documented in this encounter Plan of Treatment Upcoming Encounters Date Type Department Care Team (Late st Contact Info) Description 10/08/2024 2:15 PM SKINNER PELTS Office Visit [facility] #2 [place] [phone] Orlin Urbina, SPD MANAGER, BACK LINE COOK [address] [place] [address] 10/18/2024 2:15 PM SKINNER PELTS [facility]ment [facility] [address] [place] [address] Oswaldo Serrano MD #[address] [address] Discharge Disposition: Discharged to home or Selfcare 11/29/2024 2:30 PM SKINNER PELTS [facility] #2 [place] [address] Oswaldo Serrano MD #[address] [address] 11/30/2024 3:00 PM SKINNER PELTS [facility] Visit [facility] - End[facility]in[facility] #[address] [place] [address] Ok Jorge MD #[address] [address] documented as of this encounter Visit Diagnoses Not on filedocumented in this encounter Additional Health Concerns Assessment Noted Time PHQ-9 Depression Total Score: 2 07/18/20 20 4:26 PM CDT documented as of this encounter Care Teams Ear Pull Machine Operator Relationship Specialty Start Date End Date Oswaldo Serrano MD #[address] [address] PCP - General Family Medicine 05/19/17 Angel Crowe DPM #[address] [address] Consulting Physician Podiatry 06/16/17 Mora Fritz [place] Behavioral Health Navigator 06/15/18 Ok Jorge MD [address] [address] Consulting Physician Endocrinology 05/12/22 documented as of this encounter
--- OUTSIDE RECORDS SUMMARY | 2024-10-07 00:23 | XMS_ITS | Encounter Summary ---
Author Organization [facility] Address [address] [place] [address] Phone Care Team Providers Care Spring Tacker Name Role Phone Oswaldo Serrano MD Primary Care Provider [phone] Angel Crowe DPM Unavailable [phone] Mora Fritz Unavailable Unavailable Ok Jorge MD Unavailable Reason for Visit * Reason Onset Date Comments Form Completion 08/27/2022 Encounter Details Date Type Department Care Team (Late st Contact Info) Description 08/27/2022 Telephone [facility] - Family Medicine [facility] #2 [place] [address] Oswaldo Serrano MD #[address] [address] Form Completion Social History Tobacco Use Types Packs/Day Years [...] Coronavirus/COVID-19? No / Unsure 08/26/2022 1:55 PM GRANT OFFICER documented as of this encounter Miscellaneous Notes * Telephone Encounter - Zainab Roblero RN - 08/27/2022 1:25 PM CST Form received from [employer] for pcp signature on order for incontinence supplies. Signed and faxed back T OFFICER documented in this encounter Plan of Treatment Upcoming Encounters Date Type Department Care Team (Late st Contact Info) Description 10/08/2024 2:15 PM GRANT OFFICER Office Visit [facility] #2 [place] [phone] Orlin Urbina APRN, TOW MATE [address] [place] [address] 10/18/2024 2:15 PM GRANT OFFICER Appointment [facility] [address] [place] [phone] Oswaldo Serrano MD #[address] [address] Discharge Disposition: Discharged to home or Selfcare 11/29/2024 2:30 PM GRANT OFFICER Office Visit [facility] - [facility] [address] Oswaldo Serrano MD #[address] [place] [address] 11/30/2024 3:00 PM GRANT OFFICER Office Visit [facility] - [facility] - [place] [facility] [place] [address] Ok Jorge MD #[address] [place] [address] documented as of this encounter Visit Diagnoses Not on filedocumented in this encounter Additional Health Concerns Assessment Noted Time PHQ-9 Depression Total Score: 2 07/18/20 20 4:26 PM CDT documented as of this encounter Care Teams Spring Tacker Relationship Specialty Start Date End Date Oswaldo Serrano MD #[address] [address] PCP - General Family Medicine 05/19/17 Angel Crowe DPM #[address] [address] Consulting Physician Podiatry 06/16/17 Mora Fritz [place] Behavioral Health Navigator 06/15/18 Ok Jorge MD #[address] [place] [address] Consulting Physician Endocrinology 05/12/22 documented as of this encounter
--- OUTSIDE RECORDS SUMMARY | 2024-10-07 00:23 | XMS_ITS | Encounter Summary ---
Author Organization [employer] Care Team Providers Care Conductor Yard Name Role Phone Oswaldo Serrano MD Primary Care Provider [phone] Angel Crowe DPM Unavailable [phone] Mora Fritz Unavailable Unavailable Ok Jorge MD Unavailable Orlin Urbina APRN, GELATIN PLANT SUPERVISOR Unavailable + [phone] Encounter Details Date Type Department Care Team (Latest Contact Info) Description 11/09/2022 Travel Social History Tobacco Use Types Packs/Day [...] Coronavirus/COVID-19? No / Unsure 11/09/2022 1:15 PM EXECUTIVE ADMIN documented as of this encounter Plan of Treatment Upcoming Encounters Date Type Department Care Team (Late st Contact Info) Description 10/08/2024 2:15 PM EXECUTIVE ADMIN Office Visit [facility] #2 [place] [address] Orlin Urbina, PORTER USED CAR LOT, GELATIN PLANT SUPERVISOR #2 [place] [address] 10/18/2024 2:15 PM EXECUTIVE ADMIN [facility]ointment [facility] 1 [place] [address] Oswaldo Serrano MD #[address] [address] Discharge Disposition: Discharged to home or Selfcare 11/29/2024 2:30 PM EXECUTIVE ADMIN [facility] - [place] #2 [place] [address] Oswaldo Serrano MD #[address] [address] 11/30/2024 3:00 PM EXECUTIVE ADMIN Office Visit [facility] Endocrinology - [place] #2 [place] [address] Ok Jorge MD #[address] [address] documented as of this encounter Visit Diagnoses Not on filedocumented in this encounter Additional Health Concerns Assessment Noted Time PHQ-9 Depression Total Score: 0 10/14/19 11:00 AM EXECUTIVE ADMIN documented as of this encounter Care Teams Conductor Yard Relationship Specialty Start Date End Date Oswaldo Serrano MD #2 [facility] [address] [place] [address] PCP - General Family Medicine 05/19/17 Angel Crowe DPM #2 [facility] [address] [place] [address] Consulting Physician Podiatry 06/16/17 Mora Fritz [place] Behavioral Health Navigator 06/15/18 Ok Jorge MD #2 [facility] [address] [place] [address] Consulting Physician Endocrinology 05/12/22 Orlin Urbina, PORTER USED CAR LOT, GELATIN PLANT SUPERVISOR #2 [place] [address] Nurse Practitioner Advanced Practice Nurse 11/09/22 documented as of this encounter
--- OUTSIDE RECORDS SUMMARY | 2024-10-07 00:24 | XMS_ITS | Encounter Summary ---
Author Organization [facility] Address [address] [place] [address] Phone Care Team Providers Care Face Cleaner Name Role Phone Oswaldo Serrano MD Primary Care Provider Angel Crowe DPM Unavailable Mora Fritz Unavailable Unavailable Reason for Visit * Reason Comments Medication Refill Encounter Details Date Type Department Care Team (Late st Contact Info) Description 03/12/2022 Refill [facility] #2 [place] [address] Oswaldo Serrano MD #[address] [address] Medication Refill Social History Tobacco Use Types [...] suspected to have Coronavirus/COVID-19? No / Unsure 02/12/2022 3:03 PM CDT documented as of this encounter Miscellaneous Notes * Telephone Encounter - Zainab Roblero RN - 03/12/2022 2:42 PM CDT Medication(s) [facility]illed and [facility] Medication Refill Standing Order for Pediatricand Adult Patients. Requested Prescriptions Pending Prescriptions Disp Refills ??? levothyroxine (SYNTHROID) 50 MCG Tablet [Pharmacy Med Name: *LEVOTHYROXIN 50MCG] 90 Tablet 2 Sig: TAKE ONE TABLET BY MOUTH EVERY MORNING Thyroid Hormones Protocol Passed - 03/12/2022 2:00 PM Passed - Visit with relevant provider in past 12 months or upcoming 90 days Recent Visits Date Type Provider Dept 01/05/22 Office Visit Oswaldo Serrano MD [facility] 10/07/21 Office Visit Oswaldo Serrano MD [facility] 07/28/21 Telemedicine Oswaldo Serrano MD [facility] 05/14/21 Office Visit Connor Yuan APRN, CASH RECONCILIATION SPECIALIST [facility] Showing recent visits within past 365 days and meeting all other requirements Future Appointments Date Type Provider Dept 03/30/22 Appointment Oswaldo Serrano MD [facility] Showing future appointments within next 90 days and meeting all other requirements Passed - Normal TSH in past 12 months TSH Date Value Ref Range Status 01/21/2022 3.730 0.270 - 4.200 mIU/L Final documented in this encounter Plan of Treatment Upcoming Encounters Date Type Department Care Team (Late st Contact Info) Description 10/08/2024 2:15 PM GILL TENDER Office Visit [facility] #2 [facility] [place] [address] Orlin Urbina INSIDE TECHNICAL SALES 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, CASH RECONCILIATION SPECIALIST #2 [place] [address] 10/18/2024 2:15 PM GILL TENDER [facility] 1 [place] [address] Oswaldo Serrano MD #[address] [address] Discharge Disposition: Discharged to home or Selfcare 11/29/2024 2:30 PM GILL TENDER Office Visit [facility] - [place] #2 [facility] [place] [address] Oswaldo Serrano MD #[address] [address] 11/30/2024 3:00 PM GILL TENDER Office Visit [facility] - [place] #2 [place] [address] Ok Jorge MD #[address] [place] [address] documented as of this encounter Visit Diagnoses Not on filedocumented in this encounter Additional Health Concerns Assessment Noted Time PHQ-9 Depression Total Score: 2 07/18/20 20 4:26 PM CDT documented as of this encounter Care Teams Face Cleaner Relationship Specialty Start Date End Date Oswaldo Serrano MD #[address] [place] [address] PCP - General Family Medicine 05/19/17 Angel Crowe DPM #[address] [address] Consulting Physician Podiatry 06/16/17 Mora Fritz Behavioral Health Navigator 06/15/18 documented as of this encounter
--- OUTSIDE RECORDS SUMMARY | 2024-10-07 00:24 | XMS_ITS | Encounter Summary ---
Author Organization [facility] Address [address] [place] [address] Phone Care Team Providers Care Silk Spotter Name Role Phone Oswaldo Serrano MD Primary Care Provider [phone] Angel Crowe DPM Unavailable Mora Fritz Unavailable Unavailable Ok Jorge MD Unavailable Encounter Details Date Type Department Care Team (Late st Contact Info) Description 06/07/2022 Telephone [facility] - Family Medicine [facility] #2 [place] [address] Oswaldo Serrano MD #[address] [id number] Social History Tobacco Use Types Packs/Day Years [...] suspected to have Coronavirus/COVID-19? No / Unsure 05/25/2022 4:56 PM CDT documented as of this encounter Miscellaneous Notes * Telephone Encounter - Oswaldo Serrano MD - 06/07/2022 2:33 PM CDT ----- Message from Agnieszka Ledbetter sent at 06/07/2022 2:28 PM CDT ----- Loretta is due for her 6 month follow up Left Diagnostic Mamm and US. Could you please send orders for [id number] and [id number]. Thank You, Agnieszka Ledbetter Fourdrinier Wire Weaver documented in this encounter Plan of Treatment Upcoming Encounters Date Type Department Care Team (Late st Contact Info) Description 10/08/2024 2:15 PM CODING MANAGER Office Visit [facility] #2 [place] [address] Orlin Urbina, MEDIA OPERATOR, SCRAP WORKER #2 [place] [address] 10/18/2024 2:15 PM CODING MANAGER Appointment [facility] Mammography 1 [place] [address] Oswaldo Serrano MD #[address] [address] Discharge Disposition: Discharged to home or Selfcare 11/29/2024 2:30 PM CODING MANAGER Office Visit [facility] - Family Medicine [facility] #2 [place] [address] Oswaldo Serrano MD #[address] [address] 11/30/2024 3:00 PM CODING MANAGER Office Visit [facility] Endocrinology [facility] #2 [place] [address] Ok Jorge MD #[address] [address] documented as of this encounter Visit Diagnoses Diagnosis Abnormal mammogram- Primary Abnormal mammogram, unspecified documented in this encounter Additional Health Concerns Assessment Noted Time PHQ-9 Depression Total Score: 2 07/18/20 20 4:26 PM CDT documented as of this encounter Care Teams Silk Spotter Relationship Specialty Start Date End Date Oswaldo Serrano MD #[address] [address] PCP - General Family Medicine 05/19/17 Angel Crowe DPM #[address] [address] Consulting Physician Podiatry 06/16/17 Mora Fritz [place] Behavioral Health Navigator 06/15/18 Ok oJrge MD #[address] [address] Consulting Physician Endocrinology 05/12/22 documented as of this encounter
--- OUTSIDE RECORDS SUMMARY | 2024-10-07 00:24 | XMS_ITS | Encounter Summary ---
Author Organization [employer] Care Team Providers Care Case Management Social Worker Name Role Phone Oswaldo Serrano MD Primary Care Provider [phone] Angel Crowe DPM Unavailable [phone] Mora Fritz Unavailable Unavailable Ok Jorge MD Unavailable Encounter Details Date Type Department Care Team (Latest Contact Info) Description 05/25/2022 Travel Social History Tobacco Use Types Packs/Day [...] st Contact Info) Description 10/08/2024 2:15 PM COVERING MACHINE TENDER Office Visit [facility] #2 [place] [address] Orlin Urbina, AUTOMOTIVE PARTS COUNTER ASSISTANT, ETHNOLOGY PROFESSOR #2 [place] [address] 10/18/2024 2:15 PM COVERING MACHINE TENDER [facility]ment [facility] 1 [place] [address] Oswaldo Serrano MD #[address] [address] Discharge Disposition: Discharged to home or Selfcare 11/29/2024 2:30 PM COVERING MACHINE TENDER Office Visit [facility] - [place] #2 [place] [address] Oswaldo Serrano MD #[address] [address] 11/30/2024 3:00 PM COVERING MACHINE TENDER Office Visit [facility] - [place] #2 [place] [address] Ok Jorge MD #[address] [address] documented as of this encounter Visit Diagnoses Not on filedocumented in this encounter Additional Health Concerns Assessment Noted Time PHQ-9 Depression Total Score: 2 07/18/20 4:26 PM CDT documented as of this encounter Care Teams Case Management Social Worker Relationship Specialty Start Date End Date Oswaldo Serrano MD #2 [facility] [address] [place] [address] PCP - General Family Medicine 05/19/17 Angel Crowe DPM #2 [facility] [address] [place] [address] Consulting Physician Podiatry 06/16/17 Mora Fritz PA Behavioral Health Navigator 06/15/18 Ok Jorge MD #2 [facility] [address] [place] [address] Consulting Physician Endocrinology 05/12/22 documented as of this encounter
--- OUTSIDE RECORDS SUMMARY | 2024-10-07 00:24 | XMS_ITS | Encounter Summary ---
Author Organization [facility] Address [address] [place] [address] Phone Care Team Providers Care Airline Security Representative Name Role Phone Oswaldo Serrano MD Primary Care Provider Angel Crowe DPM Unavailable [phone] Mora Fritz Unavailable Unavailable Reason for Visit * Reason Onset Date Comments Medication Refill 04/07/2022 Encounter Details Date Type Department Care Team (Late st Contact Info) Description 04/07/2022 Refill [facility] - [place] #2 [place] [address] Ok Jorge MD #[address] [address] Medication Refill Social History Tobacco [...] suspected to have Coronavirus/COVID-19? No / Unsure 03/18/2022 2:34 PM CDT documented as of this encounter Miscellaneous Notes * Telephone Encounter - Ok Jorge MD - 04/07/2022 2:25 PM CDT Rx sent * Telephone Encounter - Ynes Zuniga RN - 04/07/2022 10:20 AM CDT Requested Prescriptions Pending Prescriptions Disp Refills ??? NovoLOG FlexPen 100 UNIT/ML Solution Pen-injector 75 mL 1 Sig: INJECT 16 UNITS AT BREAKFAST, 16 UNITS AT LUNCH AND 14 UNITS AT DINNER -- ISF OF 1:30 IF GREATER THAN 140MG/DL UP TO 70 UNITS PER DAY ??? insulin glargine (LANTUS, BASAGLAR) 100 UNIT/ML Solution Pen-injector Sig: by Subcutaneous route every evening. Tresiba not covered by insurance, Basaglar preferred documented in this encounter Plan of Treatment Upcoming Encounters Date Type Department Care Team (Late st Contact Info) Description 10/08/2024 2:15 PM PATTERNMAKER PLASTER Office Visit [facility] #2 [place] [address] Orlin Urbina, TUB OPERATOR, FLOOR POLISHER #2 [place] [address] 10/18/2024 2:15 PM PATTERNMAKER PLASTER [facility] 1 [place] [address] Oswaldo Serrano MD #[address] [address] Discharge Disposition: Discharged to home or Selfcare 11/29/2024 2:30 PM PATTERNMAKER PLASTER [facility] Visit [facility] #2 [place] [address] Oswaldo Serrano MD #[address] [address] 11/30/2024 3:00 PM PATTERNMAKER PLASTER Office Visit [facility] Medical [facility] - Endocrinology [facility] #2 [place] [address] Ok Jorge MD #[address] [address] documented as of this encounter Visit Diagnoses Not on filedocumented in this encounter Additional Health Concerns Assessment Noted Time PHQ-9 Depression Total Score: 2 07/18/20 20 4:26 PM CDT documented as of this encounter Care Teams Airline Security Representative Relationship Specialty Start Date End Date Oswaldo Serrano MD #[address] [address] PCP - General Family Medicine 05/19/17 Angel Crowe DPM #[address] [address] Consulting Physician Podiatry 06/16/17 Mora Fritz [place] Behavioral Health Navigator 06/15/18 documented as of this encounter
--- OUTSIDE RECORDS SUMMARY | 2024-10-07 00:24 | XMS_ITS | Encounter Summary ---
Author Organization [facility] Address [address] [place] [address] Phone Care Team Providers Care Aesthetics Instructor Name Role Phone Oswaldo Serrano MD Primary Care Provider [phone] Angel Crowe DPM Unavailable [phone] Mora Fritz Unavailable Unavailable Ok Jorge MD Unavailable Encounter Details Date Type Department Care Team (Late st Contact Info) Description 08/21/2022 Telephone [facility] - Family Medicine [facility] #2 [place] [address] Oswaldo Serrano MD #[address] [id number] Social History Tobacco Use Types Packs/Day Years [...] Coronavirus/COVID-19? No / Unsure 09/28/2022 3:35 PM ORNAMENTAL BRICK INSTALLER documented as of this encounter Miscellaneous Notes * Telephone Encounter - Oswaldo Serrano MD - 10/03/2022 3:27 PM ORNAMENTAL BRICK INSTALLER DONE. MENTAL BRICK INSTALLER documented in this encounter Plan of Treatment Upcoming Encounters Date Type Department Care Team (Late st Contact Info) Description 10/08/2024 2:15 PM ORNAMENTAL BRICK INSTALLER Office Visit [facility] UR[facility]Y #2 [place] [address] Orlin Urbina, ADMISSIONS ASSISTANT, MANAGER STATISTICS #2 [place] [address] 10/18/2024 2:15 PM ORNAMENTAL BRICK INSTALLER Appointment [facility] Mammography 1 [place] [address] Oswaldo Serrano MD #[address] [address] Discharge Disposition: Discharged to home or Selfcare 11/29/2024 2:30 PM ORNAMENTAL BRICK INSTALLER Office Visit [facility] - Family Medicine [facility] #2 [place] [address] Oswaldo Serrano MD #[address] [address] 11/30/2024 3:00 PM ORNAMENTAL BRICK INSTALLER Office Visit [facility] - Endocrinology - [place] #2 [place] [address] Ok Jorge MD #[address] [address] documented as of this encounter Visit Diagnoses Not on filedocumented in this encounter Additional Health Concerns Assessment Noted Time PHQ-9 Depression Total Score: 2 07/18/20 20 4:26 PM CDT documented as of this encounter Care Teams Aesthetics Instructor Relationship Specialty Start Date End Date Oswaldo Serrano MD #[address] [address] PCP - General Family Medicine 05/19/17 Angel Crowe DPM #[address] [address] Consulting Physician Podiatry 06/16/17 Mora Fritz [place] Behavioral Health Navigator 06/15/18 Ok Jorge MD #[address] [address] Consulting Physician Endocrinology 05/12/22 documented as of this encounter
--- OUTSIDE RECORDS SUMMARY | 2024-10-07 00:24 | XMS_ITS | Encounter Summary ---
Author Organization [facility] Address [address] [place] [address] Phone Care Team Providers Care Beam Builder Name Role Phone Oswaldo Serrano MD Primary Care Provider [phone] Angel Crowe DPCiara Unavailable Mora Fritz Unavailable Unavailable Ok Jorge MD Unavailable Orlin Urbina APRN, CATECHIST Unavailable [phone] Reason for Visit * Reason Comments Medication Refill Encounter Details Date Type Department Care Team (Late st Contact Info) Description 06/16/2022 Refill [facility] - [place] #2 [place] [address] Oswaldo Serrano MD #[address] [address] Medication Refill Social History Tobacco Use Types [...] Encounter - Maria Luisa Gallegos RN - 06/17/2022 9:17 AM CDT Medication failed the protocol, provider to review and approve the medication order if appropriate. Requested Prescriptions Pending Prescriptions Disp Refills escitalopram (LEXAPRO) 10 MG Tablet [Pharmacy Med Name: ESCITALOPRAM 10MG] 90 Tablet 1 Sig: TAKE ONE TABLET BY MOUTH EVERY DAY SSRI (6 Month Refill Only) Protocol Failed - 06/16/2022 3:40 PM Failed - Has an encounter in the past 6 months with a depression, anxiety, adjustment disorder, OCD, or PTSD visit diagnosis Passed - Visit with relevant provider in past 6 months or upcoming 90 days Recent Visits Date Type Provider Dept 05/25/22 Office Visit Tom Quach MD [facility] 01/05/22 Office Visit Oswaldo Serrano MD [facility] Showing recent visits within past 182 days [...] st Contact Info) Description 10/08/2024 2:15 PM AGRONOMY ADVISOR Office Visit [facility] #2 [place] [address] Orlin Urbina APRN, CATECHIST #2 [facility] [address] 10/18/2024 2:15 PM AGRONOMY ADVISOR Appointment [facility] Mammography 1 [facility] [place] [address] Oswaldo Serrano MD #[address] [address] Discharge Disposition: Discharged to home or Selfcare 11/29/2024 2:30 PM AGRONOMY ADVISOR Office [facility] - [place] #2 [place] [address] Oswaldo Serrano MD #[address] [address] 11/30/2024 3:00 PM AGRONOMY ADVISOR Office Visit [facility] Endocr[facility]ology - [place] #2 [place] [address] Ok Jorge MD #[address] [address] documented as of this encounter Visit Diagnoses Not on filedocumented in this encounter Additional Health Concerns Assessment Noted Time PHQ-9 Depression Total Score: 2 07/18/20 20 4:26 PM CDT documented as of this encounter Care Teams Beam Builder Relationship Specialty Start Date End Date Oswaldo Serrano MD #[address] [address] PCP - General Family Medicine 05/19/17 Angel Crowe DPM #2 [facility] [address] [place] [address] Consulting Physician Podiatry 06/16/17 Mora Fritz Behavioral Health Navigator 06/15/18 Ok Jorge MD [facility] [address] [place] [address] Consulting Physician Endocrinology 05/12/22 Orlin Urbina, PROJECT GEOPHYSICIST, CATECHIST #2 [place] [address] Nurse Practitioner Advanced Practice Nurse 11/09/22 documented as of this encounter
--- OUTSIDE RECORDS SUMMARY | 2024-10-07 00:24 | XMS_ITS | Encounter Summary ---
Author Organization [facility] Address [address] [place] [address] Phone Care Team Providers Care Chocolate Molder Name Role Phone Oswaldo Serrano MD Primary Care Provider [phone] Angel Crowe DPCiara Unavailable Mora Fritz Unavailable Unavailable Ok Jorge MD Unavailable Orlin Urbina APRN, HVAC PROJECT MANAGER Unavailable [phone] Reason for Visit * Reason Comments Medication Refill Encounter Details Date Type Department Care Team (Late st Contact Info) Description 07/14/2022 Refill [facility] - [place] #2 [place] [address] Oswaldo Serrano MD #[address] [address] Medication Refill Social History Tobacco Use Types [...] suspected to have Coronavirus/COVID-19? No / Unsure 06/24/2022 1:49 PM CDT documented as of this encounter Miscellaneous Notes * Telephone Encounter - Mica Morales RN - 07/14/2022 3:35 PM CDT Medication failed the protocol, provider to review and approve the medication order if appropriate. Requested Prescriptions Pending Prescriptions Disp Refills docusate sodium (COLACE) 100 MG Capsule [Pharmacy Med Name: DOCUSATE SOD 100MG] 60 Capsule 0 Sig: TAKE 1 CAPSULE BY MOUTH TWICE DAILY Laxatives Protocol Failed - 07/14/2022 3:26 PM Failed - Up to date with colon cancer screening Health Maintenance Passed - Visit with relevant provider in past 12 months or upcoming 90 days Recent Visits Date Type Provider Dept 05/25/22 Office Visit Tom Quach MD [facility] 01/05/22 Office Visit Oswaldo Serrano MD [facility] 10/07/21 Office Visit Oswaldo Serrano MD [facility] 07/28/21 Telemedicine Oswaldo Serrano MD [facility] Showing recent visits within past 365 days and meeting all other requirements Future Appointments No visits were found meeting these conditions. Showing future appointments within next 90 days and meeting all other requirements documented in this encounter Plan of Treatment Upcoming Encounters Date Type Department Care Team (Late st Contact Info) Description 10/08/2024 2:15 PM WORLD GEOGRAPHY TEACHER Office Visit [facility] UR[facility]Y #2 [place] [address] Orlin Urbina MEDICAL ASSEMBLY, HVAC PROJECT MANAGER #2 [place] [address] 10/18/2024 2:15 PM WORLD GEOGRAPHY TEACHER Appointment [facility] Mammography 1 [place] [address] Oswaldo Serrano MD #[address] [address] Discharge Disposition: Discharged to home or Selfcare 11/29/2024 2:30 PM WORLD GEOGRAPHY TEACHER [facility] - [place] #2 [place] [address] Oswaldo Serrano MD #[address] [address] 11/30/2024 3:00 PM WORLD GEOGRAPHY TEACHER [facility] End[facility] - [place] #2 [place] [address] Ok Jorge MD #[address] [place] [address] documented as of this encounter Visit Diagnoses Not on filedocumented in this encounter Additional Health Concerns Assessment Noted Time PHQ-9 Depression Total Score: 2 07/18/20 20 4:26 PM CDT documented as of this encounter Care Teams Chocolate Molder Relationship Specialty Start Date End Date Oswaldo Serrano MD #[address] [address] PCP - General Family Medicine 05/19/17 Angel Crowe DPM #[address] [address] Consulting Physician Podiatry 06/16/17 Mora Fritz Behavioral Health Navigator 06/15/18 Ok Jorge MD #[address] [address] Consulting Physician Endocrinology 05/12/22 Orlin Urbina APRN, HVAC PROJECT MANAGER #2 [place] [address] Nurse Practitioner Advanced Practice Nurse 11/09/22 documented as of this encounter
--- OUTSIDE RECORDS SUMMARY | 2024-10-07 00:24 | XMS_ITS | Encounter Summary ---
Author Organization [facility] Address [address] [place] [address] Phone Care Team Providers Care Sales Order Processor Name Role Phone Oswaldo Serrano MD Primary Care Provider [phone] Angel Crowe DPCiara Unavailable [phone] Mora Fritz Unavailable Unavailable Ok Jorge MD Unavailable Orlin Urbina APRN, TREATMENT COORDINATOR Unavailable [phone] Reason for Visit * Reason Comments Medication Refill Encounter Details Date Type Department Care Team (Late st Contact Info) Description 08/11/2022 Refill [facility] - [place] #2 [place] [address] Oswaldo Serrano MD #[address] [address] Medication Refill Social History Tobacco Use Types [...] Telephone Encounter - Mica Morales RN - 08/12/2022 8:57 AM CDT Medication failed the protocol, provider to review and approve the medication order if appropriate. Requested Prescriptions Pending Prescriptions Disp Refills docusate sodium (COLACE) 100 MG Capsule [Pharmacy Med Name: DOCUSATE SOD 100MG] 60 Capsule 2 Sig: TAKE ONE CAPSULE BY MOUTH TWICE DAILY Laxatives Protocol Failed - 08/11/2022 3:19 PM Failed - Up to date with colon cancer screening Health Maintenance Passed - Visit with relevant provider in past 12 months or upcoming 90 days Recent Visits Date Type Provider Dept 05/25/22 Office Visit Tom Quach MD [facility] 01/05/22 Office Visit Oswaldo Serrano MD [facility] 10/07/21 Office Visit Oswaldo Serrano MD [facility] Showing recent visits within past 365 days and meeting all other requirements Future Appointments No visits were found meeting these conditions. Showing future appointments within next 90 days and meeting all other requirements documented in this encounter Plan of Treatment Upcoming Encounters Date Type Department Care Team (Late st Contact Info) Description 10/08/2024 2:15 PM RAG SORTER AND CUTTER Office Visit [facility] #2 [place] [address] Orlin Urbina, EDUCATIONAL INTERPRETER, TREATMENT COORDINATOR #2 [place] [address] 10/18/2024 2:15 PM RAG SORTER AND CUTTER [facility]ment [facility] 1 [place] [address] Oswaldo Serrano MD #[address] [address] Discharge Disposition: Discharged to home or Selfcare 11/29/2024 2:30 PM RAG SORTER AND CUTTER [facility] Visit [facility] #2 [place] [address] Oswaldo Serrano MD #[address] [address] 11/30/2024 3:00 PM RAG SORTER AND CUTTER Office Visit [facility] - Endocrinology - [place] #2 [place] [address] Ok Jorge MD #[address] [address] documented as of this encounter Visit Diagnoses Not on filedocumented in this encounter Additional Health Concerns Assessment Noted Time PHQ-9 Depression Total Score: 2 07/18/20 20 4:26 PM CDT documented as of this encounter Care Teams Sales Order Processor Relationship Specialty Start Date End Date Oswaldo Serrano MD #[address] [address] PCP - General Family Medicine 05/19/17 Angel Crowe DPM #[address] [address] Consulting Physician Podiatry 06/16/17 Mora Fritz [place] Behavioral Health Navigator 06/15/18 Ok Jorge MD #[address] [address] Consulting Physician Endocrinology 05/12/22 Orlin Urbina APRN, TREATMENT COORDINATOR #2 [place] [address] Nurse Practitioner Advanced Practice Nurse 11/09/22 documented as of this encounter
--- OUTSIDE RECORDS SUMMARY | 2024-10-07 00:24 | XMS_ITS | Encounter Summary ---
Author Organization [facility] Address [address] [place] [address] Phone Care Team Providers Care Case Monitor Name Role Phone Oswaldo Serrano MD Primary Care Provider [phone] Angel Crowe DPM Unavailable [phone] Mora Fritz Unavailable Unavailable Reason for Visit * Reason Onset Date Comments Request for Records 04/02/2022 Encounter Details Date Type Department Care Team (Late st Contact Info) Description 04/02/2022 Telephone [facility] - Family Medicine [facility] #2 [place] [address] Oswaldo Serrano MD #[address] [address] Request for Records Social History Tobacco Use Types Packs/Day Years [...] Telephone Encounter - Tina Cortes CMA - 04/02/2022 11:26 AM CDT Pap reminder documented in this encounter Plan of Treatment Upcoming Encounters Date Type Department Care Team (Late st Contact Info) Description 10/08/2024 2:15 PM AERIAL ADVERTISER Office Visit [facility] #2 [place] [address] Orlin Urbina APRN, PROVISIONING SPECIALIST #2 [place] [address] 10/18/2024 2:15 PM AERIAL ADVERTISER Appointment [facility] Mammography 1 [place] [address] Oswaldo Serrano MD #[address] [address] Discharge Disposition: Discharged to home or Selfcare 11/29/2024 2:30 PM AERIAL ADVERTISER Office Visit [facility] - Family Medicine [facility] #2 [place] [address] Oswaldo Serrano MD #2 [facility] [address] [place] [address] 11/30/2024 3:00 PM AERIAL ADVERTISER Office Visit [facility] - Endocrinology - [place] #2 [place] [address] Ok Jorge MD #[address] [address] documented as of this encounter Visit Diagnoses Not on filedocumented in this encounter Additional Health Concerns Assessment Noted Time PHQ-9 Depression Total Score: 2 07/18/20 20 4:26 PM CDT documented as of this encounter Care Teams Case Monitor Relationship Specialty Start Date End Date Oswaldo Serrano MD #[address] [address] PCP - General Family Medicine 05/19/17 Angel Crowe DPM #[address] [address] Consulting Physician Podiatry 06/16/17 Mora Fritz Behavioral Health Navigator 06/15/18 documented as of this encounter
--- OUTSIDE RECORDS SUMMARY | 2024-10-07 00:24 | XMS_ITS | Encounter Summary ---
Author Organization [facility] Care Team Providers Care Bilingual Operator Name Role Phone Oswaldo Serrano MD Primary Care Provider [phone] Angel Crowe DPM Unavailable [phone] Mora Fritz Unavailable Unavailable Encounter Details Date Type Department Care Team (Latest Contact Info) Description 02/12/2022 Travel Social History Tobacco Use Types Packs/Day [...] st Contact Info) Description 10/08/2024 2:15 PM FINISH MACHINE TENDER Office Visit [facility] #2 [facility] [place] [address] Orlin Urbina, TAX EXAMINER, GETTER OPERATOR #2 [place] [address] 10/18/2024 2:15 PM FINISH MACHINE TENDER [facility] 1 [place] [phone] Oswaldo Serrano MD #2 [facility] [address] [place] [address] Discharge Disposition: Discharged to home or Selfcare 11/29/2024 2:30 PM FINISH MACHINE TENDER Office Visit [facility] - [place] #2 [place] [address] Oswaldo Serrano MD #2 [facility] [address] [place] [address] 11/30/2024 3:00 PM FINISH MACHINE TENDER Office Visit [facility] - Endocrinology - [place] #2 [facility] [place] [address] Ok Jorge MD #2 [facility] [address] [place] [address] documented as of this encounter Visit Diagnoses Not on filedocumented in this encounter Additional Health Concerns Assessment Noted Time PHQ-9 Depression Total Score: 2 07/18/20 20 4:26 PM CDT documented as of this encounter Care Teams Bilingual Operator Relationship Specialty Start Date End Date Oswaldo Serrano MD #[address] [address] PCP - General Family Medicine 05/19/17 Angel Crowe DPM #[address] [address] Consulting Physician Podiatry 06/16/17 Mora Fritz Behavioral Health Navigator 06/15/18 documented as of this encounter
--- OUTSIDE RECORDS SUMMARY | 2024-10-07 00:24 | XMS_ITS | Encounter Summary ---
Author Organization [facility] Address [address] [place] [address] Phone Care Team Providers Care Family Psychologist Name Role Phone Oswaldo Serrano MD Primary Care Provider [phone] Angel Crowe DPM Unavailable [phone] Mora Fritz Unavailable Unavailable Reason for Referral * PT/OT/ST (Routine) - Closed Specialty Diagnoses / Procedures Referred By Contac t Referred To Contact Rehabilitation Diagnoses OAB (overactive bladder) Nocturnal enuresis Orlin Urbina, DATA COLLECTION INTERVIEWER, MARKETING DIRECTOR #2 [place] [address] Phone: tel: fax: [facility] [address], [address] [address] Phone: tel: fax: Referral ID Status Reason Start Date Expiration Date Visits Re quested Visits Authorized [id number] Closed 03/18/2022 1 1 Scheduling Instructions Loretta is being referred for pelvic floor physical therapy. Please contact patient/family for scheduling questions or concerns. Reason for Visit * Reason Comments Follow-up Overactive Bladder Encounter Details Date Type Department Care Team ([facility] st Contact Info) Description 03/18/2022 2:30 PM CDT Office Visit [facility] #2 [place] [address] Orlin Urbina APRN, CNP #2 [place] [address] OAB (overactive bladder) (Primary Dx); Nocturnal enuresis Discharge Disposition: Discharged to home or Selfcare [...] Sign Reading Time Taken Comments Blood Pressure 110/64 03/18/2022 2:54 PM CDT Pulse 83 03/18/2022 2:54 PM CDT Temperature 36.2 ??C (97.2 ??F) 03/18/2022 2:54 PM CD T Respiratory Rate 16 03/18/2022 2:54 PM CDT Oxygen Saturation 93% 03/18/2022 2:54 PM CDT Inhaled Oxygen Concentration - - Weight 133.8 kg (295 lb) 03/18/2022 2:54 PM CDT Height 167.6 cm (5' 6 ) 03/18/2022 2:54 PM CDT Body Mass Index 47.61 03/18/2022 2:54 PM CDT documented in this encounter Progress Notes * Dariel Dowling RMA - 03/18/2022 2:30 PM CDT POCT UA collected per order of Orlin Urbina ELECTRONICS UTILITY WORKER on 03/18/2022 * Orlin Urbina APRN, MARKETING DIRECTOR - 03/18/2022 2:30 PM CDT UROLOGY [facility] [address] [facility], [address] [place] [address] PHONE: FAX: Assessment & Plan OAB- patient's symptoms improved on Myrbetriq. Will plan to restart medication. Stressed the importance of following up to be able to continue medication. We reviewed avoiding bladder irritants and maintaining good glycemic control to help improve urinary symptoms and to prevent them from deteriorating. We discussed the option of adding pelvic floor physical therapy to obtain better control over urinary symptoms which patient is agreeable to. Patient follow-up after completing PF PT. Subjective: 03/18/22 HPI: HPI: Loretta Penn presents to the office to follow-up on Myrbetriq 50 mg. Patient reports when she was on Myrbetriq she was only going through 3-4 pads a day instead of 7-8. She reports improved urinary frequency and urgency. She had difficulty getting back into the office and so she has been out of her Myrbetriq for a couple of months now. UA-negative for blood or infection PVR 38 cc The following portions of the patient's chart were reviewed in this encounter and updated as appropriate: Tobacco Allergies Meds Med Hx Surg Hx Fam Hx Soc [...] dizziness and weakness. Objective: Vital signs: BP 110/64 Pulse 83 Temp 97.2 ??F (36.2 ??C) (Oral) Resp 16 Ht 5' 6 (1.676 m) Wt 295 lb (133.8 kg) LMP (LMP Unknown) SpO2 93% BMI 47.61 kg/m?? Vitals: 03/18/22 1454 PainSc: 8 Physical Exam Constitutional: General: She is not [...] Final URINE BLOOD 25 /uL (A) Negative jolene/ul Final URINALYSIS COLOR Yellow Final URINALYSIS CLARITY [...] URETHRA CONTAMINANTS. Final Susceptibility Klebsiella pneumoniae - [facility] VITEK II Ampicillin/sulbactam 4 Susceptible mcg/ml Cefazolin <=4 Susceptible mcg/ml Cefepime <=1 Susceptible mcg/ml Ceftriaxone <=1 Susceptible mcg/ml Gentamicin <=1 Susceptible mcg/ml Levofloxacin <=0.12 Susceptible mcg/ml Meropenem <=0.25 Susceptible mcg/ml Nitrofurantoin 64 Intermediate mcg/ml Piperacillin/Tazobactam <=4 Susceptible mcg/ml Tobramycin <=1 Susceptible mcg/ml Trimeth/Sulfamethoxazole <=20 Susceptible mcg/ml Results for orders placed or [...] Final URINE BLOOD 25 /uL (A) Negative jolene/ul Final URINALYSIS COLOR Pale yellow Final URINALYSIS [...] for this visit: OAB (overactive bladder) - LISA,POST-VOID RES,US,NON-IMAGING - POCT UA AUTOMATED W/O MICRO - Mirabegron ER (Myrbetriq) 50 MG TABLET SR 24 HR; Take 50 mg by mouth daily for 90 days. - PHYSICAL THERAPY REFERRAL; Future Nocturnal enuresis - Mirabegron ER (Myrbetriq) 50 MG TABLET SR 24 HR; Take 50 mg by mouth daily for 90 days. - PHYSICAL THERAPY REFERRAL; Future By: Orlin Urbina APRN, CNP, 03/25/2022, 11:56 AM CDT Primary Care Physician: Oswaldo Serrano MD Cosigned by Cora Walter III, MD at 03/27/2022 7:45 AM CDT documented in this encounter Plan of Treatment Upcoming Encounters Date Type Department Care Team (Late st Contact Info) Description 10/08/2024 2:15 PM ASSISTANT DEPARTMENT MANAGER Office Visit [facility] #2 [place] [address] Orlin Urbina APRN, MARKETING DIRECTOR #2 [place] [address] 10/18/2024 2:15 PM ASSISTANT DEPARTMENT MANAGER [facility] 1 [place] [address] Oswaldo Serrano MD #[address] [address] Discharge Disposition: Discharged to home or Selfcare 11/29/2024 2:30 PM ASSISTANT DEPARTMENT MANAGER Office Visit [facility] - Family Medicine - [place] #2 [place] [address] Oswaldo Serrano MD #[address] [address] 11/30/2024 3:00 PM ASSISTANT DEPARTMENT MANAGER Office Visit [facility] Medical [facility] - Endocrinology - [place] #2 [place] [address] Ok Jorge MD #[address] [place] [address] Scheduled Orders Name Type Priority Associated Diagnoses Orde r Schedule LISA,POST-VOID RES,US,NON-IMAGING Procedures Routine OAB (overactive bladder) Ordered: 03/18/2022 Scheduled Referrals Name Type Priority Associated Diagnoses Orde r Schedule PHYSICAL THERAPY REFERRAL Outpatient Referral Routine OAB (overactive bladder) Nocturnal enuresis Expected: 03/18/2022, Expires: 03/18/2023 documented as of this encounter Procedures Procedure Name Priority Date/Time Associated Diagnosis Comments POCT UA AUTOMATED W/O MICRO Routine 03/18/2022 2:50 PM CDT OAB (overactive bladder) documented in this encounter Results * (ABNORMAL) POCT UA AUTOMATED W/O MICRO (03/18/2022 2:50 PM CDT) POC UA SPECIFIC GRAVITY 1.010 URINE PH 5.0 5.0 - 9.0 UR, LEUKOCYTES Negative Negative Lucas/uL UR, NITRITE Negative Negative UR, PROTEIN Negative Negative mg/dL UR, GLUCOSE 3+ (>1000 mg/dL)(A) Normal mg/dL UR, KETONE Negative Negative mg/dL UR, UROBILINOGEN Normal Normal mg/dL UR, BILIRUBIN Negative Negative mg/dL UR. BLOOD Trace(A) Negative URINALYSIS COLOR Yellow URINALYSIS CLARITY Clear Urine 03/18/2022 2:50 PM CDT us Orlin Urbina DATA COLLECTION INTERVIEWER, MARKETING DIRECTOR POINT OF CARE TESTING (MANUAL) Final Result documented in this encounter Visit Diagnoses Diagnosis OAB (overactive bladder)- Primary Hypertonicity of bladder Nocturnal enuresis documented in this encounter Additional Health Concerns Assessment Noted Time PHQ-9 Depression Total Score: 2 07/18/20 20 4:26 PM CDT documented as of this encounter Care Teams Family Psychologist Relationship Specialty Start Date End Date Oswaldo Serrano MD #[address] [address] PCP - General Family Medicine 05/19/17 Angel Crowe DPM #[address] [address] Consulting Physician Podiatry 06/16/17 Mora Fritz Behavioral Health Navigator 06/15/18 documented as of this encounter
--- OUTSIDE RECORDS SUMMARY | 2024-10-07 00:24 | XMS_ITS | Encounter Summary ---
Author Organization [facility] Address [address] [place] [address] Phone Care Team Providers Care Locator Specialist Name Role Phone Oswaldo Serrano MD Primary Care Provider [phone] Angel Crowe DPM Unavailable Mora Fritz Unavailable Unavailable Ok Jorge MD Unavailable Orlin Urbina APRN, SLAG SKIMMER Unavailable [phone] Reason for Visit * Reason Comments Medication Refill Encounter Details Date Type Department Care Team (Late st Contact Info) Description 05/10/2022 Refill [facility] - [place] #2 [place] [address] Ok Jorge MD #[address] [address] Medication Refill Social History Tobacco [...] Telephone Encounter - Ynes Zuniga, RN - 05/10/2022 2:19 PM CDT Requested Prescriptions Pending Prescriptions Disp Refills ??? Glucose Blood (True Metrix Blood Glucose Test) Strip [Pharmacy Med Name: TRUE METRIX MALIA GLUCOSE-MEDICARE] 400 Each 2 Sig: TEST USING ONE STRIP FOUR TIMES DAILY Next appt: 06/07/2022 documented in this encounter Plan of Treatment Upcoming Encounters Date Type Department Care Team (Late st Contact Info) Description 10/08/2024 2:15 PM RACKMAN Office Visit [facility] UROLOGY #2 [place] [address] Orlin Urbina APRN, SLAG SKIMMER #2 [place] [address] 10/18/2024 2:15 PM RACKMAN Appointment [facility] Mammography 1 [place] [address] Oswaldo Serrano MD #[address] [address] Discharge Disposition: Discharged to home or Selfcare 11/29/2024 2:30 PM RACKMAN Office Visit [facility] - Family Medicine [facility] #2 [place] [address] Owsaldo Serrano MD #[address] [address] 11/30/2024 3:00 PM RACKMAN Office Visit [facility] - Endocrinology [facility] #2 [place] [address] Ok Jogre MD #[address] [place] [address] documented as of this encounter Visit Diagnoses Not on filedocumented in this encounter Additional Health Concerns Assessment Noted Time PHQ-9 Depression Total Score: 2 07/18/20 20 4:26 PM CDT documented as of this encounter Care Teams Locator Specialist Relationship Specialty Start Date End Date Oswaldo Serrano MD #[address] [address] PCP - General Family Medicine 05/19/17 Angel Crowe DPM #[address] [address] Consulting Physician Podiatry 06/16/17 Mora Fritz [place] Behavioral Health Navigator 06/15/18 Ok Jorge MD #[address] [address] Consulting Physician Endocrinology 05/12/22 Orlin Urbina APRN, SLAG SKIMMER #2 [place] [address] Nurse Practitioner Advanced Practice Nurse 11/09/22 documented as of this encounter
--- OUTSIDE RECORDS SUMMARY | 2024-10-07 00:24 | XMS_ITS | Encounter Summary ---
Author Organization [facility] Address [address] [place] [address] Phone Care Team Providers Care Blind Slat Stapling Machine Operator Name Role Phone Oswaldo Serrano MD Primary Care Provider [phone] Angel Crowe DPCiara Unavailable [phone] Mora Fritz Unavailable Unavailable Ok Jorge MD Unavailable Orlin Urbina APRN, OVAL OR CIRCULAR GLASS CUTTER Unavailable [phone] Reason for Visit * Reason Comments Medication Refill Encounter Details Date Type Department Care Team (Late st Contact Info) Description 05/19/2022 Refill [facility] - [place] #2 [place] [address] Oswaldo Serrano MD #[address] [address] Medication Refill Social History Tobacco Use Types [...] Telephone Encounter - Mica Morales RN - 05/20/2022 9:59 AM CDT Medication failed the protocol, provider to review and approve the medication order if appropriate. Requested Prescriptions Pending Prescriptions Disp Refills docusate sodium (COLACE) 100 MG Capsule [Pharmacy Med Name: DOCUSATE SOD 100MG] 60 Capsule 1 Sig: TAKE 1 CAPSULE BY MOUTH TWICE DAILY Laxatives Protocol Failed - 05/19/2022 4:00 PM Failed - Up to date with colon cancer screening Health Maintenance Passed - Visit with relevant provider in past 12 months or upcoming 90 days Recent Visits Date Type Provider Dept 01/05/22 Office Visit Oswaldo Serrano MD [facility] 10/07/21 Office Visit Oswaldo Serrano MD [facility] 07/28/21 Telemedicine Oswaldo Serrano MD [facility] Showing recent visits within past 365 days and meeting all other requirements Future Appointments No visits were found meeting these conditions. Showing future appointments within next 90 days and meeting all other requirements documented in this encounter Plan of Treatment Upcoming Encounters Date Type Department Care Team (Late Contact Info) Description 10/08/2024 2:15 PM JUDGE CLERK Office Visit [facility] #2 [place] [address] Orlin Urbina, DRY KILN LOADER, OVAL OR CIRCULAR GLASS CUTTER #2 [place] [address] 10/18/2024 2:15 PM JUDGE CLERK [facility] [address] [place] [address] Oswaldo Serrano MD #[address] [address] Discharge Disposition: Discharged to home or Selfcare 11/29/2024 2:30 PM JUDGE CLERK [facility] Family Medicine [facility] #2 [place] [address] Oswaldo Serrano MD #[address] [address] 11/30/2024 3:00 PM JUDGE CLERK Office Visit [facility] - Endocrinology [facility] #2 [place] [address] Ok Jorge MD #[address] [address] documented as of this encounter Visit Diagnoses Not on filedocumented in this encounter Additional Health Concerns Assessment Noted Time PHQ-9 Depression Total Score: 2 07/18/20 20 4:26 PM CDT documented as of this encounter Care Teams Blind Slat Stapling Machine Operator Relationship Specialty Start Date End Date Oswaldo Serrano MD #[address] [address] PCP - General Family Medicine 05/19/17 Angel Crowe DPM #[address] [address] Consulting Physician Podiatry 06/16/17 Mora Fritz [place] Behavioral Health Navigator 06/15/18 kO Jorge MD #[address] [address] Consulting Physician Endocrinology 05/12/22 Orlin Urbina, DRY KILN LOADER, OVAL OR CIRCULAR GLASS CUTTER #2 [place] [address] Nurse Practitioner Advanced Practice Nurse 11/09/22 documented as of this encounter
--- OUTSIDE RECORDS SUMMARY | 2024-10-07 00:24 | XMS_ITS | Encounter Summary ---
Author Organization [facility] Address [address] [place] [address] Phone Care Team Providers Care Helmet Coverer Name Role Phone Oswaldo Serrano MD Primary Care Provider [phone] Angel Crowe DPCiara Unavailable Mora Fritz Unavailable Unavailable Ok Jorge MD Unavailable Orlin Urbina APRN, ORGANIC CHEMIST Unavailable + [phone] Reason for Visit * Reason Comments Medication Refill Encounter Details Date Type Department Care Team (Late st Contact Info) Description 02/17/2022 Refill [facility] - [place] #2 [place] [address] Oswaldo Serrano MD #[address] [address] Medication Refill Social History Tobacco Use Types [...] Telephone Encounter - Mica Morales RN - 02/18/2022 9:10 AM CDT Medication failed the protocol, provider to review and approve the medication order if appropriate. Requested Prescriptions Pending Prescriptions Disp Refills docusate sodium (COLACE) 100 MG Capsule [Pharmacy Med Name: DOCUSATE SOD 100MG] 60 Capsule 2 Sig: TAKE ONE CAPSULE BY MOUTH TWICE DAILY Laxatives Protocol Failed - 02/17/2022 4:10 PM Failed - Up to date with colon cancer screening Health Maintenance Passed - Visit with relevant provider in past 12 months or upcoming 90 days Recent Visits Date Type Provider Dept 01/05/22 Office Visit Oswaldo Serrano MD [facility] 10/07/21 Office Visit Oswaldo Serrano MD [facility] 07/28/21 Telemedicine Oswaldo Serrano MD [facility] 05/14/21 Office Visit Connor Yuan APRN, [facility] 02/27/21 Office Visit Oswaldo Serrano MD [facility] Showing recent visits within past 365 days and meeting all other requirements Future Appointments No visits were found meeting these conditions. Showing future appointments within next 90 days and meeting all other requirements documented in this encounter Plan of Treatment Upcoming Encounters Date Type Department Care Team (Late st Contact Info) Description 10/08/2024 2:[address] SUPERVISOR Office Visit [facility] PH[facility] UROLOGY #2 [place] [phone] Orlin Urbina APRN, ORGANIC CHEMIST #2 [place] [address] 10/18/2024 2:[address] SUPERVISOR [facility] 1 [place] [phone] Oswaldo Serrano MD #2 [facility] [address] [place] [address] Discharge Disposition: Discharged to home or Selfcare 11/29/2024 2:[address] SUPERVISOR Office Visit [facility] - [place] #2 [place] [phone] Oswaldo Serrano MD #2 [facility] [address] [place] [address] 11/30/2024 3:[address] SUPERVISOR Office Visit [facility] - [place] #2 [place] [address] Ok Jorge MD #[address] [phone] documented as of this encounter Visit Diagnoses Not on filedocumented in this encounter Additional Health Concerns Assessment Noted Time PHQ-9 Depression Total Score: 2 07/18/20 20 4:26 PM CDT documented as of this encounter Care Teams Helmet Coverer Relationship Specialty Start Date End Date Oswaldo Serrano MD #2 [facility] [address] [place] [address] PCP - General Family Medicine 05/19/17 Angel Crowe DPM #2 [facility] [address] [place] [address] Consulting Physician Podiatry 06/16/17 Mora Fritz [place] Behavioral Health Navigator 06/15/18 Ok Jorge MD #[address] [address] Consulting Physician Endocrinology 05/12/22 Orlin Urbina APRN, ORGANIC CHEMIST #2 [place] [address] Nurse Practitioner Advanced Practice Nurse 11/09/22 documented as of this encounter
--- OUTSIDE RECORDS SUMMARY | 2024-10-07 00:24 | XMS_ITS | Encounter Summary ---
Author Organization [facility] Address [address] [place] [address] Phone Care Team Providers Care Expeller Worker Name Role Phone Oswaldo Serrano MD Primary Care Provider Angel Crowe DPM Unavailable Mora Fritz Unavailable Unavailable Reason for Visit * Reason Comments Medication Refill Encounter Details Date Type Department Care Team (Late st Contact Info) Description 05/05/2022 Refill [facility] #2 [place] [address] Oswaldo Serrano MD #[address] [address] Medication Refill Social History Tobacco Use Types [...] Telephone Encounter - Mica Morales RN - 05/06/2022 11:15 AM CDT Pharmacy contacted - Lisinopril Rx cancelled. Removed from medication list. * Telephone Encounter - Oswaldo Serrano MD - 05/06/2022 9:37 AM CDT Please cancel this script for Lisinopril. She is already on Entresto, and should not be taking this. Please call her pharmacy and cancel this and remove it from her med list. Thanks! * Telephone Encounter - Mica Morales RN - 05/06/2022 9:31 AM CDT Medication warning Per nursing clinical judgement, provider to review and approve the medication(s) order(s) if appropriate. Requested Prescriptions Pending Prescriptions Disp Refills lisinopril (PRINIVIL, ZESTRIL) 5 MG Tablet [Pharmacy Med Name: *LISINOPRIL 5MG] 90 Tablet 1 Sig: TAKE ONE TABLET BY MOUTH EVERY DAY EMIR Inhibitors Protocol Passed - 05/05/2022 3:40 PM Passed - Serum potassium on record in past 12 months POTASSIUM Date Value Ref Range Status 01/21/2022 4.5 3.5 - 5.1 mmol/L Final Passed - Blood pressure on record in past 12 months Clinician-entered: BP Readings from Last 3 Encounters: 03/18/22 110/64 02/12/22 108/62 01/05/22 122/76 Patient-entered: No data recorded Passed - Visit with relevant provider in past 12 months or upcoming 90 days Recent Visits Date Type Provider Dept 01/05/22 Office Visit Oswaldo Serrano MD [facility] 10/07/21 Office Visit Oswaldo Serrano MD [facility] 07/28/21 Telemedicine Oswaldo Serrano MD [facility] 05/14/21 Office Visit Connor Yuan APRN, ASSISTANT ENGINEER [facility] Showing recent visits within past 365 days and meeting all other requirements Today's Visits Date Type Provider Dept 05/06/22 Appointment Oswaldo Serrano MD [facility] Showing today's visits and meeting all other requirements Future Appointments No visits were found meeting these conditions. Showing future appointments within next 90 days and meeting all other requirements Passed - GFR on record in past 12 months GFR, EST. NONAFRICAN Date Value Ref Range Status 01/21/2022 >60 >=60 Final documented in this encounter Plan of Treatment Upcoming Encounters Date Type Department Care Team (Late st Contact Info) Description 10/08/2024 2:15 PM INSPECTION MANAGER Office Visit [facility] UROLOGY #2 [place] [phone] Orlin Urbina APRN, ASSISTANT ENGINEER #2 [place] [address] 10/18/2024 2:15 PM INSPECTION MANAGER [facility] 1 [place] [address] Oswaldo Serrano MD #[address] [address] Discharge Disposition: Discharged to home or Selfcare 11/29/2024 2:30 PM INSPECTION MANAGER Office Visit [facility] #2 [place] [address] Oswaldo Serrano MD #[address] [address] 11/30/2024 3:00 PM INSPECTION MANAGER Office Visit [facility] - Endocrinology - [place] #2 [place] [address] Ok Jorge MD #[address] [address] documented as of this encounter Visit Diagnoses Diagnosis Orthostatic hypotension documented in this encounter Additional Health Concerns Assessment Noted Time PHQ-9 Depression Total Score: 2 07/18/20 20 4:26 PM CDT documented as of this encounter Care Teams Expeller Worker Relationship Specialty Start Date End Date Oswaldo Serrano MD #[address] [address] PCP - General Family Medicine 05/19/17 Angel Crowe DPM #[address] [address] Consulting Physician Podiatry 06/16/17 Mora Fritz Behavioral Health Navigator 06/15/18 documented as of this encounter
--- OUTSIDE RECORDS SUMMARY | 2024-10-07 00:24 | XMS_ITS | Encounter Summary ---
Author Organization [employer] Care Team Providers Care Franchise Sales Manager Name Role Phone Oswaldo Serrano MD Primary Care Provider [phone] Angel Crowe DPM Unavailable [phone] Mora Fritz Unavailable Unavailable Ok Jorge MD Unavailable Encounter Details Date Type Department Care Team (Latest Contact Info) Description 06/24/2022 Travel Social History Tobacco Use Types Packs/Day [...] st Contact Info) Description 10/08/2024 2:15 PM CHIEF TELEPHONE OPERATOR Office Visit [facility] UROLOGY #2 [place] [address] Orlin Urbina, HOUSE MOVER, SEASONAL WAREHOUSE ASSOCIATE #2 [place] [address] 10/18/2024 2:15 PM CHIEF TELEPHONE OPERATOR [facility]ment [facility] 1 [place] [address] Oswaldo Serrano MD #[address] [address] Discharge Disposition: Discharged to home or Selfcare 11/29/2024 2:30 PM CHIEF TELEPHONE OPERATOR Office Visit [facility] - [place] #2 [place] [address] Oswaldo Serrano MD #[address] [address] 11/30/2024 3:00 PM CHIEF TELEPHONE OPERATOR Office Visit [facility] - [place] #2 [place] [address] Ok Jorge MD #[address] [phone] documented as of this encounter Visit Diagnoses Not on filedocumented in this encounter Additional Health Concerns Assessment Noted Time PHQ-9 Depression Total Score: 2 07/18/20 20 4:26 PM CDT documented as of this encounter Care Teams Franchise Sales Manager Relationship Specialty Start Date End Date Oswaldo Serrano MD #2 [facility] [address] [place] [address] PCP - General Family Medicine 05/19/17 nAgel Crowe DPM #2 [facility] [address] [place] [address] Consulting Physician Podiatry 06/16/17 Mora Fritz [place] Behavioral Health Navigator 06/15/18 Ok Jorge MD #2 [facility] [address] [place] [address] Consulting Physician Endocrinology 05/12/22 documented as of this encounter
--- OUTSIDE RECORDS SUMMARY | 2024-10-07 00:24 | XMS_ITS | Encounter Summary ---
Author Organization [facility] Address [address] [place] [address] Phone Care Team Providers Care Decal Decorator Name Role Phone Oswaldo Serrano MD Primary Care Provider [phone] Angel Crowe DPCiara Unavailable Mora Fritz Unavailable Unavailable Ok Jorge MD Unavailable Orlin Urbina APRN, ARTIFICIAL SNOW MAKING MACHINE OPERATOR Unavailable + [phone] Reason for Visit * Reason Comments Medication Refill Encounter Details Date Type Department Care Team (Late st Contact Info) Description 06/03/2022 Refill [facility] - [place] #2 [place] [address] Oswaldo Serrano MD #[address] [address] Medication Refill Social History Tobacco Use Types [...] Encounter - Maria Luisa Gallegos RN - 06/03/2022 3:07 PM CDT Medication failed the protocol, provider to review and approve the medication order if appropriate. Requested Prescriptions Pending Prescriptions Disp Refills nortriptyline (PAMELOR) 10 MG Capsule [Pharmacy Med Name: NORTRIPTYLIN 10MG] 90 Capsule 1 Sig: TAKE ONE CAPSULE BY MOUTH ONE TIME DAILY IN THE EVENING Not Delegated - Tricyclic Agents Protocol Failed - 06/03/2022 1:05 PM Failed - This refill cannot be [...] st Contact Info) Description 10/08/2024 2:15 PM SIPHON OPERATOR Office Visit [facility] UROLOGY #2 [place] [phone] Orlin Urbina APRN, ARTIFICIAL SNOW MAKING MACHINE OPERATOR #2 [place] [address] 10/18/2024 2:15 PM SIPHON OPERATOR Appointment [facility] Mammography 1 [place] [phone] Oswaldo Serrano MD #[address] [address] Discharge Disposition: Discharged to home or Selfcare 11/29/2024 2:30 PM SIPHON OPERATOR Office Visit [facility] - [place] #2 [place] [address] Oswaldo Serrano MD #[address] [address] 11/30/2024 3:00 PM SIPHON OPERATOR Office Visit [facility] - [facility]inology - [place] #2 [place] [address] Ok Jorge MD #[address] [address] documented as of this encounter Visit Diagnoses Not on filedocumented in this encounter Additional Health Concerns Assessment Noted Time PHQ-9 Depression Total Score: 2 07/18/20 20 4:26 PM CDT documented as of this encounter Care Teams Decal Decorator Relationship Specialty Start Date End Date Oswaldo Serrano MD #[address] [address] PCP - General Family Medicine 05/19/17 Angel Crowe DPM #[address] [address] Consulting Physician Podiatry 06/16/17 Mora Fritz [place] Behavioral Health Navigator 06/15/18 Ok Jorge MD #[address] [address] Consulting Physician Endocrinology 05/12/22 Orlin Urbina APRN, ARTIFICIAL SNOW MAKING MACHINE OPERATOR #2 [place] [address] Nurse Practitioner Advanced Practice Nurse 11/09/22 documented as of this encounter
--- OUTSIDE RECORDS SUMMARY | 2024-10-07 00:24 | XMS_ITS | Encounter Summary ---
Author Organization [employer] Care Team Providers Care Scale Operator Name Role Phone Oswaldo Serrano MD Primary Care Provider [phone] Angel Crowe DPM Unavailable [phone] Mora Fritz Unavailable Unavailable Encounter Details Date Type Department Care Team (Latest Contact Info) Description 03/18/2022 Travel Social History Tobacco Use Types Packs/Day [...] st Contact Info) Description 10/08/2024 2:15 PM PLAYERS ASSISTANT Office Visit [facility] UROLOGY #2 [place] [phone] Orlin Urbina, TREE FRUIT AND NUT CROPS FARMER, VISUAL MERCHANDISING DIRECTOR #2 [place] [address] 10/18/2024 2:15 PM PLAYERS ASSISTANT [facility] 1 [place] [phone] Oswaldo Serrano MD #2 [facility] [address] [place] [address] Discharge Disposition: Discharged to home or Selfcare 11/29/2024 2:30 PM PLAYERS ASSISTANT Office Visit [facility] - [facility] Medicine - [place] #2 [place] [phone] Oswaldo Serrano MD #2 [facility] [address] [place] [address] 11/30/2024 3:00 PM PLAYERS ASSISTANT Office Visit [facility] - Endocr[facility]ology - [place] #2 [place] [address] Ok Jorge MD #2 [facility] [address] [place] [address] documented as of this encounter Visit Diagnoses Not on filedocumented in this encounter Additional Health Concerns Assessment Noted Time PHQ-9 Depression Total Score: 2 07/18/20 20 4:26 PM CDT documented as of this encounter Care Teams Scale Operator Relationship Specialty Start Date End Date Oswaldo Serrano MD #[address] [address] PCP - General Family Medicine 05/19/17 Angel Crowe DPM #[address] [address] Consulting Physician Podiatry 06/16/17 Mora Fritz Behavioral Health Navigator 06/15/18 documented as of this encounter
--- OUTSIDE RECORDS SUMMARY | 2024-10-07 00:24 | XMS_ITS | Encounter Summary ---
Author Organization [facility] Address [address] [place] [address] Phone Care Team Providers Care Canvass Manager Name Role Phone Oswaldo Serrano MD Primary Care Provider Angel Crowe DPM Unavailable [phone] Mora Fritz Unavailable Unavailable Encounter Details Date Type Department Care Team (Late st Contact Info) Description 03/04/2022 Telephone [facility] - Family Medicine [facility] #2 [place] [address] Oswaldo Serrano MD #[address] [address] Social History Tobacco Use Types Packs/Day Years [...] Telephone Encounter - Oswaldo Serrano MD - 03/05/2022 9:08 PM CDT DONE. documented in this encounter Plan of Treatment Upcoming Encounters Date Type Department Care Team (Late st Contact Info) Description 10/08/2024 2:15 PM SLOT FLOOR PERSON Office Visit [facility]YS[facility] GROUP UROLOGY #2 [place] [phone] Orlin Urbina APRN, ELEVATOR CONSTRUCTOR ELECTRIC #2 [place] [address] 10/18/2024 2:15 PM SLOT FLOOR PERSON Appointment [facility] Mammography 1 [place] [address] Oswaldo Serrano MD #[address] [address] Discharge Disposition: Discharged to home or Selfcare 11/29/2024 2:30 PM SLOT FLOOR PERSON Office Visit [facility] Medicine [facility] #2 [place] [address] Oswaldo Serrano MD #[address] [address] 11/30/2024 3:00 PM SLOT FLOOR PERSON Office Visit [facility] - Endocrinology - [place] #2 [place] [address] Ok Jorge MD [facility] [address] [address] documented as of this encounter Visit Diagnoses Not on filedocumented in this encounter Additional Health Concerns Assessment Noted Time PHQ-9 Depression Total Score: 2 07/18/20 20 4:26 PM CDT documented as of this encounter Care Teams Canvass Manager Relationship Specialty Start Date End Date Oswaldo Serrano MD #[address] [address] PCP - General Family Medicine 05/19/17 Angel Crowe DPM [facility] [facility] [address] Consulting Physician Podiatry 06/16/17 Mora Fritz Behavioral Health Navigator 06/15/18 documented as of this encounter
--- OUTSIDE RECORDS SUMMARY | 2024-10-07 00:24 | XMS_ITS | Encounter Summary ---
Author Organization [facility] Address [address] [place] [address] Phone Care Team Providers Care Aircraft Mechanic [employer] Name Role Phone Oswaldo Serrano MD Primary Care Provider [phone] Angel Crowe DPM Unavailable Mora Fritz Unavailable Unavailable Ok Jorge MD Unavailable Reason for Visit * Reason Comments Urinary Problem Patient is being see n for possible UTI. Encounter Details Date Type Department Care Team (Late st Contact Info) Description 05/25/2022 4:45 PM CDT [facility] Visit [facility] [address] [place] [phone] Tom Quach MD [address] [address] Dysuria (Primary Dx); Glucosuria Discharge Disposition: Discharged to home or Selfcare [...] Sign Reading Time Taken Comments Blood Pressure 112/62 05/25/2022 5:01 PM CDT Pulse 98 05/25/2022 5:01 PM CDT Temperature 36.4 ??C (97.5 ??F) 05/25/2022 5:01 PM CD T Respiratory Rate 20 05/25/2022 5:01 PM CDT Oxygen Saturation 95% 05/25/2022 5:01 PM CDT Inhaled Oxygen Concentration - - Weight 137.9 kg (304 lb) 05/25/2022 5:01 PM CDT Height 167.6 cm (5' 6 ) 05/25/2022 5:01 PM CDT Body Mass Index 49.07 05/25/2022 5:01 PM CDT documented in this encounter Progress Notes * Dilia Alston, ONEIL - 05/25/2022 4:45 PM CDT Loretta Penn, 61 y.o., female is here for Urinary Problem (Patient is being seen for possible UTI.) Medication Refills: Patient reports/denies need for medication refills. Orders Pended: no Requested Prescriptions No prescriptions requested or ordered in this encounter Home Medications Medication Sig Start Date End Date Taking? Authorizing Provider albuterol 108 (90 Base) MCG/ACT Aerosol Solution take 1-2 Puffs by inhalation every 4 hours as needed for Cough. 10/07/21 Yes Oswaldo Serrano MD albuterol 108 (90 Base) MCG/ACT Aerosol Solution 02/14/21 Yes Nica Muniz MD Blood Glucose Monitoring Suppl Device Test blood glucose 4 times daily. E11.9, insulin dependent 12/19/19 Yes Ok Jorge MD Blood Pressure Monitoring (Blood Pressure Cuff) [facility] Dispense battery-powered arm cuff (Dx: I10) 12/19/20 Yes Oswaldo Serrano MD carvedilol (COREG) 25 MG Tablet 25 mg 2 times daily. 05/06/17 Yes Nica Muniz MD Continuous Blood Gluc Reel System Operator (Dexcom G6 Reel System Operator) Device 12/03/21 Yes Nica Muniz MD Continuous Blood Gluc Sensor (Dexcom G6 Sensor) [facility] 12/03/21 Yes Nica Muniz MD Continuous Blood Gluc Transmit (Dexcom G6 Transmitter) [facility] 12/03/21 Yes Nica Muniz MD Cyanocobalamin (B-12) 500 MCG Tablet TAKE ONE TABLET BY MOUTH EVERY DAY 02/04/22 Yes Oswaldo Serrano MD dilTIAZem (CARDIZEM) 30 MG Tablet TK 1 T PO TID 04/28/17 Yes Nica Muniz MD docusate sodium (COLACE) 100 MG Capsule TAKE 1 CAPSULE BY MOUTH TWICE DAILY Patient not taking: No sig reported 05/20/22 Oswaldo Serrano MD Entresto 24-26 MG Tablet 09/11/21 Yes Nica Muniz MD escitalopram (LEXAPRO) 10 MG Tablet TAKE ONE TABLET BY MOUTH EVERY DAY 09/12/21 Yes Yves Serrano MD furosemide (LASIX) 40 MG Tablet TAKE ONE TABLET BY MOUTH EVERY DAY 01/28/22 Yes Connor Yuan APRN, CNP Glucose Blood (True Metrix Blood Glucose Test) Strip TEST USING ONE STRIP FOUR TIMES DAILY 05/10/22 Yes Ok Jorge MD guaiFENesin-codeine (Cheratussin AC) 100-10 MG/5ML Syrup Take 5 mL by mouth every 4 hours as neededfor Cough. Patient not taking: No sig reported 05/14/21 Connor Yuan APRN, CNP insulin glargine (LANTUS, BASAGLAR) 100 UNIT/ML Solution [...] EVERY MORNING 03/12/22 Yes Oswaldo Serrano MD Mirabegron ER (Myrbetriq) 50 MG TABLET SR 24 HR Take 50 mg by mouth daily for 90 days. 03/18/22 06/16/22 Yes Orlin Urbina APRN, CNP nortriptyline (PAMELOR) 10 MG Capsule TAKE ONE CAPSULE BY MOUTH ONE TIME DAILY IN THE EVENING 09/12/21 Yes Oswaldo Serrano MD NovoLOG FlexPen 100 [...] Release potassium chloride 20 mEq tablet,ER particles/crystals 10/10/1969 Yes Nica Muniz MD rivaroxaban (Xarelto) 20 MG Tablet Take 20 mg by mouth daily (with dinner). Take with food. Yes ProviderNica MD There are no discontinued medications. I have reviewed the home medication list with the patient and have reconciled discrepancies. The list is accurate to the best of my knowledge. Smoking Status: Social History Tobacco Use ??? Smoking status: Never Smoker ??? Smokeless tobacco: Never Used Vaping Use ??? Vaping Use: Never used Substance Use Topics ??? Alcohol use: No ??? Drug use: No Smoking Cessation Counseling Given: yes Health Care Maintenance: Health Maintenance Due Topic Date Due ??? Hepatitis B Immunization (1 of 3 - 3-dose series) Never done ??? Pneumococcal Immunization (0-64 years) (1 - PCV) Never done ??? Colorectal Cancer Screening Never done ??? Zoster Immunization (1 of 2) Never done ??? Dilated Eye Exam 07/18/2019 ??? Pap Smear 06/06/2020 ??? SARS-COV-2 Immunization (3 - Booster for Pfizer series) 06/20/2021 Orders Pended: no The following BPA's have been addressed with the patient today: No BPAs * Tom Quach MD - 05/25/2022 4:45 PM CDT SUBJECTIVE: Loretta Penn is here to follow-up/ evaluation on her 1. Dysuria Loretta Penn says she has been feeling fine. Past Medical History Positives Diagnosis Date ??? Atrial fibrillation and flutter (HCC) ??? CHF, chronic (HCC) ??? Diabetes mellitus (HCC) ??? Hepatitis C ??? Hypertension ??? Pacemaker Past Surgical History: Procedure Laterality Date ??? APPENDECTOMY ??? APPENDECTOMY ??? HC DEFIB CARD RESYNCHRONIZATION 1/DF4 IS4 EA/1 ??? TOOTH EXTRACTION All of her teeth ??? WISDOM TOOTH EXTRACTION Social History Tobacco Use ??? Smoking status: Never Smoker ??? Smokeless tobacco: Never Used Substance Use Topics ??? Alcohol use: No Exercise: no ROS: She She She is compliant in taking her medication and denies medication side effects. reprots low back pain midl dysuria Urine has strong odor No blood urine reprots frequency but has been drinking a lot of fluids. Went to urgent care on Tuesday but told no uti Mild vaginal irrtation Symptoms for how long One week Has urgency to piss No diarrhea. midl constipation No f/c No n/v Outpatient Medications Marked as Taking for the 05/25/22 encounter (Office Visit) with Tom Quach MD Medication Sig Dispense Refill ??? albuterol 108 (90 Base) MCG/ACT Aerosol Solution take 1-2 Puffs by inhalation every 4 hours as needed for Cough. 1 g 0 ??? albuterol 108 (90 Base) MCG/ACT Aerosol Solution ??? Blood Glucose Monitoring Suppl Device Test blood glucose 4 times daily. E11.9, insulin dependent 1 Each 0 ??? Blood Pressure Monitoring (Blood Pressure Cuff) Misc Dispense battery- powered arm cuff (Dx: I10) 1 Each 0 ??? carvedilol (COREG) 25 MG Tablet 25 mg 2 times daily. ??? Continuous Blood Gluc Reel System Operator (Dexcom G6 Reel System Operator) Device ??? Continuous Blood Gluc Sensor (Dexcom G6 Sensor) Misc ??? Continuous Blood Gluc Transmit (Dexcom G6 Transmitter) Misc ??? Cyanocobalamin (B-12) 500 MCG Tablet TAKE ONE TABLET BY MOUTH EVERY DAY 90 Tablet 2 ??? dilTIAZem (CARDIZEM) 30 MG Tablet TK 1 T PO TID 0 ??? Entresto 24-26 MG Tablet ??? escitalopram (LEXAPRO) 10 MG Tablet TAKE ONE TABLET BY MOUTH EVERY DAY 90 Tablet 2 ??? furosemide (LASIX) 40 MG Tablet TAKE ONE TABLET BY MOUTH EVERY DAY 90 Tablet 2 ??? Glucose Blood (True Metrix Blood Glucose Test) Strip TEST USING ONE STRIP FOUR TIMES DAILY 400 Each 3 ??? insulin glargine (LANTUS, BASAGLAR) 100 UNIT/ML Solution Pen-injector 20 Units by Subcutaneous route every morning. 30 mL 1 ??? Insulin Pen Needle (PEN [...] MOUTH EVERY MORNING 90 Tablet 2 ??? Mirabegron ER (Myrbetriq) 50 MG TABLET SR 24 HR Take 50 mg by mouth daily for 90 days. 90 Tablet 0 ??? nortriptyline (PAMELOR) 10 MG Capsule TAKE ONE CAPSULE BY MOUTH ONE TIME DAILY IN THE EVENING 90 Capsule 2 ??? NovoLOG FlexPen 100 UNIT/ML Solution Pen-injector INJECT 18 UNITS AT BREAKFAST, 18 UNITS AT LUNCH AND 14 UNITS AT DINNER -- ISF OF 1:30 IF GREATER THAN 140MG/DL UP TO 70 UNITS PER DAY 75 mL 1 ??? omeprazole (PriLOSEC) 20 MG CAPSULE DELAYED RELEASE TAKE ONE CAPSULE BY MOUTH EVERY DAY 90 Capsule 2 ??? potassium chloride SA (KLORCON M) 20 MEQ Tablet Controlled Release Take 1 Tablet by mouth daily. 90 Tablet 3 ??? potassium chloride SA (KLORCON M) 20 MEQ Tablet Controlled Release potassium chloride 20 mEq tablet,ER particles/crystals ??? rivaroxaban (Xarelto) 20 MG Tablet Take 20 mg by mouth daily (with dinner). Take with food. Allergies Allergen Reactions ??? Sulfa Antibiotics Unknown and Hives ??? Sulfamethoxazole-Trimethoprim Hives LABS Lab Results Component Value Date WBC 5.88 01/21/2022 HEMOGLOBIN 14.6 01/21/2022 HEMATOCRIT 44.1 01/21/2022 PLATELETCNT 285 01/21/2022 CHOLESTEROL 157 01/21/2022 TRIGLYCRIDES 161 (H) 01/21/2022 TRIGLYCRIDES 120 09/11/2020 TRIGLYCRIDES 221 (H) 12/14/2019 HDLCHOLESTE 41.8 01/21/2022 HDLCHOLESTE 41.6 09/11/2020 HDLCHOLESTE 44.8 12/14/2019 LDL 83 01/21/2022 LDL 107 09/11/2020 LDL 90 12/14/2019 INR 2.6 (H) 03/29/2020 HGBA1C 9.5 (H) 01/21/2022 HGBA1C 9.7 (A) 11/06/2021 HGBA1C 9.2 (A) 12/14/2019 MACRRAND <=13 12/14/2019 EDGXYELM66 1,152 (H) 01/21/2022 Lab Results Component Value Date [...] 01/21/2022 GFRNA >60 01/21/2022 GFRA >60 01/21/2022 VTMD 32 01/21/2022 TSH 3.730 01/21/2022 OBJECTIVE Well-nourished, well-developed, pleasant, cooperative 61 y.o. female in no acute distress. Vitals: 05/25/22 1701 BP: 112/62 Pulse: 98 Resp: 20 Temp: 97.5 ??F (36.4 ??C) TempSrc: Temporal SpO2: 95% Weight: 304 lb (137.9 kg) Height: 5' 6 (1.676 m) Body mass index is 49.07 kg/m??. BP Readings from Last 3 Encounters: 05/25/22 112/62 03/18/22 110/64 02/12/22 108/62 Wt Readings from Last 3 Encounters: 05/25/22 304 lb (137.9 kg) 03/18/22 295 lb (133.8 kg) 02/12/22 295 lb (133.8 kg) SKIN: Warm and dry. BACK: No spine or costovertebral angle tenderness. LUNGS: Clear to auscultationand percussion. HEART:normal rate, regular rhythm, normal S1, S2, no murmurs, rubs, clicks or gallops. ABDOMEN: Bowel sounds are active. No masses. No organomegaly, no tenderness. No bruits. EXTREMITIES: No edema. Abd: Obese. No pain with palpation, No masses. No suprapubic tenderness No rebound ASSESSMENT AND PLAN Diagnoses and all orders for this visit: Dysuria There are no discontinued medications. No follow-ups on file. Continue current medication After visit summary discussed with patient. Documentation for this visit on 05/25/2022 was completed using a template. I have seen and examined the patient. Everything documented was personally performed at this visit with the necessary additions, deletions and changes made as appropriate. Dysuria/frequency/urgency: ua shows. Glucose only. No blood no bacteria. urgd her to fu with endo. Urged her to watch diet. Follow up with pcp. She admits eats too much carbs at [facility] to avoid low blood sugars at night while sleeping Will give diflcuan for possible yeast infection documented in this encounter Plan of Treatment Upcoming Encounters Date Type Department Care Team (Late st Contact Info) Description 10/08/2024 2:15 PM MATH COACH Office Visit [facility] UROLOGY [address] [place] [address] Orlin Urbina, RESEARCH ASSISTANT, INSOLE DOUBLER [address] [place] [address] 10/18/2024 2:15 PM MATH COACH Appointment [facility] [address] [place] [address] Oswaldo Serrano MD #[address] [address] Discharge Disposition: Discharged to home or Selfcare 11/29/2024 2:30 PM MATH COACH Office Visit [facility] - [facility] Medicine [facility] #[address] [place] [address] Oswaldo Serrano MD #[address] [address] 11/30/2024 3:00 PM MATH COACH Office Visit [facility] - Endocrinology [facility] [address] [place] [phone] Ok Jorge MD #2 [facility] [address] [place] [phone] documented as of this encounter Procedures Procedure Name Priority Date/Time Associated Diagnosis Comments POCT UA AUTOMATED W/O MICRO Routine 05/25/2022 5:42 PM CDT Dysuria documented in this encounter Results * (ABNORMAL) POCT UA AUTOMATED W/O MICRO (05/25/2022 5:42 PM CDT) POC UA SPECIFIC GRAVITY 1.005 URINE PH 5.0 5.0 - 9.0 POC URINE LEUKOCYTES Negative Negative Lucas/uL POC URINE NITRITE Negative Negative POC URINE PROTEIN Negative Negative mg/dL POC URINE GLUCOSE 250 mg/dL(A) Negative, Norm mg/dL POC URINE KETONE Negative Negative mg/dL POC URINE UROBILINOGEN Norm Norm, 0.2 mg/dL, 1 mg/dL POC URINE BILIRUBIN Negative Negative mg/dL POC URINE BLOOD INSTRUMENT Negative Negative Alec/uL POC URINE COLOR Yellow POC URINE CLARITY Clear Urine 05/25/2022 5:42 PM CDT Tom Quach MD POINT OF CARE TESTING (MANUAL ) Final Result documented in this encounter Visit Diagnoses Diagnosis Dysuria- Primary Glucosuria Glycosuria documented in this encounter Additional Health Concerns Assessment Noted Time PHQ-9 Depression Total Score: 2 07/18/20 20 4:26 PM CDT documented as of this encounter Care Teams Aircraft Mechan[employer] Electrical [employer] Relationship Specialty Start Date End Date Oswaldo Serrano MD [address]2 [facility] [address] [place] [address] PCP - General Family Medicine 05/19/17 Angel Crowe DPM #2 [facility] [address] [place] [address] Consulting Physician Podiatry 06/16/17 Mora Fritz [place] Behavioral Health Navigator 06/15/18 Ok Jorge MD #[address] [address] Consulting Physician Endocrinology 05/12/22 documented as of this encounter
--- OUTSIDE RECORDS SUMMARY | 2024-10-07 00:24 | XMS_ITS | Encounter Summary ---
Author Organization [facility] Address [address] [facility] [place] [address] Phone Care Team Providers Care Fortune Teller Name Role Phone Oswaldo Serrano MD Primary Care Provider Angel Crowe DPM Unavailable Mora Fritz Unavailable Unavailable Ok Jorge MD Unavailable Reason for Visit * Reason Onset Date Comments Back Pain 05/25/2022 Urinary Problem 05/25/2022 Encounter Details Date Type Department Care Team (Late st Contact Info) Description 05/25/2022 Nurse Triage [facility] [address] [place] [address] Oswaldo Serrano MD #[address] [address] Back Pain; Urinary Problem Social History Tobacco Use Types Packs/Day Years [...] encounter Miscellaneous Notes * Telephone Encounter - Tana Haynes RN - 05/25/2022 3:21 PM CDT SAWYER Dobbs calling SITUATION: Lower back pain, foul smelling urine, burning, frequency BACKGROUND: Patient seen in prompt care on 05/22/22 at [facility]. Was advised there was no UTI orkidney infection. Patient was treated by prompt care with Nitrofurantoin 100mg BID for 5 days. Symptoms have not improved since prompt care visit. Caller states patient has NOT started the antibiotic Caller is concerned that there may be more of a yeast issue ASSESSMENT: Patient on other line assisting with triage Caller states patient still has lower back pain located in the middle. Pain is constant 9/10 Urine smells bad Patient states is urinating more than usual Burning with urination Patient states irritated and itchy at times Denies fever RECOMMENDATION: See care advice and disposition for Guideline Guideline recommends to be seen today Caller agreeable All Patient Appointments Provider Department Dept Phone 05/25/2022 4:45 PM Tom Quach [facility] - [facility] [phone] Allergies, pharmacy, and medications reviewed Assistive services verified First positive answer recorded, all responses to prior questions were negative. If symptoms increase, change or if new symptoms develop, call your HCP or call back. Recommendations were based on caller information and is not a diagnosis. Verified and reviewed all triage information with caller. Reason for Disposition ??? Side (flank) or lower back pain present Protocols used: URINARY [id number] documented in this encounter Plan of Treatment Upcoming Encounters Date Type Department Care Team (Late st Contact Info) Description 10/08/2024 2:15 PM WELFARE ADMINISTRATOR Office Visit [facility] #[address] [place] [phone] Orlin Urbina APRN, POLICY ANALYST #[address] [place] [address] 10/18/2024 2:15 PM WELFARE ADMINISTRATOR Appointment [facility] M[facility] [address] [place] [phone] Oswaldo Serrano MD #[address] [address] Discharge Disposition: Discharged to home or Selfcare 11/29/2024 2:30 PM WELFARE ADMINISTRATOR [facility] [place] #[address] [place] [phone] Oswaldo Serrano MD #[address] [address] 11/30/2024 3:00 PM WELFARE ADMINISTRATOR Office Visit [facility] - [place] #[address] [place] [phone] Ok Jorge MD #[address] [phone] documented as of this encounter Visit Diagnoses Not on filedocumented in this encounter Additional Health Concerns Assessment Noted Time PHQ-9 Depression Total Score: 2 07/18/20 20 4:26 PM CDT documented as of this encounter Care Teams Fortune Teller Relationship Specialty Start Date End Date Oswaldo Serrano MD #[address] [address] PCP - General Family Medicine 05/19/17 Angel Crowe DPM #2 [facility] [address] [place] [address] Consulting Physician Podiatry 06/16/17 Mora Fritz [place] Behavioral Health Navigator 06/15/18 Ok Jorge MD #2 [facility] [address] [place] [address] Consulting Physician Endocrinology 05/12/22 documented as of this encounter
--- OUTSIDE RECORDS SUMMARY | 2024-10-07 00:24 | XMS_ITS | Encounter Summary ---
Author Organization [facility] Address [address] [place] [address] Phone Care Team Providers Care Roguer Name Role Phone Oswaldo Serrano MD Primary Care Provider [phone] Angel Crowe DPM Unavailable [phone] Mora Fritz Unavailable Unavailable Ok Jorge MD Unavailable Reason for Visit * Reason Comments Diabetes Mellitus Follow up Encounter Details Date Type Department Care Team (Late st Contact Info) Description 06/24/2022 3:30 PM CDT Office Visit [facility] - Endocrinology - [place] [address] [place] [address] Ok Jorge MD [address] [address] Type 2 diabetes mellitus treated [...] Sign Reading Time Taken Comments Blood Pressure 124/64 06/24/2022 3:42 PM CDT Pulse 90 06/24/2022 3:42 PM CDT Temperature 36.2 ??C (97.2 ??F) 06/24/2022 3:42 PM CD T Respiratory Rate 18 06/24/2022 3:42 PM CDT Oxygen Saturation 95% 06/24/2022 3:42 PM CDT Inhaled Oxygen Concentration - - Weight 133.8 kg (295 lb) 06/24/2022 3:42 PM CDT Height 167.6 cm (5' 6 ) 06/24/2022 3:42 PM CDT Body Mass Index 47.61 06/24/2022 3:42 PM CDT documented in this encounter Patient Instructions * Patient Instructions* Ok Jorge MD - 06/24/2022 3:30 PM CDT Please take??Lantus??20??units in the morning ?? Please take??NovoLog??(Humalog) 18-16-16??units before each meal ?? Please use correctional factor insulin before each meal as directed ?? Please monitor blood sugar before each meal and at bedtime ?? Please??bring??blood sugar log for review at the next visit ?? Contact Endocrinology Clinic for low blood sugar events ?? Follow up visit in??3??months ?? RULE OF 15: ??If you have signs/symptoms of low blood sugar (hypoglycemia),and/or your blood sugar is less than 70 mg/dl, you may choose one of the below treatments (~15 gm of carbohydrate):glucose tablets or 1?2 glass (4 oz.) of apple juice or 1/2 glass (4 oz.) of clear regular soda and recheck blood sugar in 15 minutes, If not above 80 mg/dl, retreat treatment until blood sugar is above 80 mg/dl. Once blood sugar is above 80-90 mg/dL, please give insulin as scheduled. ?? Look at your feet, top and bottom every morning. If you have any signs of infection, such as:areas,change in feeling or temperature, swelling, blisters, or cracks in the skin, call your doctor rightaway. Apply lotion to dry skin areas to prevent cracks. Keep the skin between your toes clean and dry. ?? CORRECTION FACTOR: ??1:30 ?? BLOOD GLUCOSE (SUGAR) CORRECTION FACTOR: ??1:30?? HUMALOG/NOVOLOG UNDER 70 TREAT LOW, USE RULE OF 15 ?71 - 140 ??+0 UNIT 141 - 170 ??+1 UNIT 171 - 200 ??+2 UNITS 201 - 230 ??+3 UNITS 231 - 260 ??+4 UNITS 261 - 290 ??+5 UNITS 291 - 320 ??+6 UNITS 321 - 350 ??+7 UNITS 351 - 380 ??+8 UNITS 381 - 400 ??+9 UNITS ABOVE 400 ??+10 UNITS ? documented in this encounter Progress Notes * Lucila Panda CMA - 06/24/2022 3:30 PM CDT Patient was seen in office today and finger stick was obtained on right middle finger for A1C, Patient tolerated well. * Ok Jorge MD - 06/24/2022 3:30 PM CDT Subject&Objective Loretta Penn is a 61-year-old woman who comes to the Endocrinology office to discuss management of type 2 diabetes mellitus. 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 Other pertinent health history includes hypertension, dyslipidemia, and obesity. The patient was initially diagnosed with diabetes >10 years ago. Currently, the patient takes Lantus 20 units at bedtime, NovoLog 18 units with breakfast, 18 units with lunch, and 14 units with supper for management of hyperglycemia. The patient reports occasional, mild hypoglycemic events with intact symptoms of hypoglycemia awareness. Most episodes occur in the afternoon following lunch. The patient denied severe low blood sugar events requiring third alliance party intervention. Unfortunately, the patient did not bring her glucose meter for download or a logbook for review at today's office appointment. Her sister reports that Dexcom sensor didn't stay for the full 10 days so the patient couldn't use it. Hemoglobin A1c obtained by POC testing today was 8.5%, improved from the previous measurement of 9.5% obtained in January 2022. Physical Exam Vitals: 06/24/22 1542 BP: 124/64 BP Location: Right Arm BP Position: Sitting BP Cuff Size: Large Pulse: 90 Resp: 18 Temp: 97.2 ??F (36.2 ??C) TempSrc: Temporal SpO2: 95% Weight: 295 lb (133.8 kg) Height: 5' 6 (1.676 m) Constitutional: appears well-developed and well-nourished. No acute distress. Head: Normocephalic and atraumatic. Cardiovascular: Normal rate and regular rhythm Pulmonary/Chest: Effort normal and breath sounds normal Abdominal: No lipohypertrophy at injection sites Lab Results Component Value Date HGBA1C 8.5 (A) 06/24/2022 Assessment and Plan Loretta Penn is a middle-aged woman with type 2 diabetes mellitus whose overall glycemic control has improved over the last 3-4 months based on today???s Dntdr-qd-Dvya hemoglobin A1c measurement. Treatment consideration and hypoglycemic precaution were discussed with her and her sister at some length. She will change Humalog to 18-16-16 units before each meal and continue Lantus 20 units in the morning for management of hyperglycemia. The patient will return for office reevaluation in 3months. PLAN: 1. Take Lantus 20 units in the morning 2. Take Humalog 18-16-16 units before each meal 3. Correctional factor insulin dosed at 1:30 if CBG is > 140 mg/dl 4. Monitor blood sugar QAC/QHS 5. Bring CBG log or CGM download for review 6. Contact Endocrinology Clinic for low blood sugar events 7. RTC in 3 months Hypoglycemia PLAN: 1. Consistent CHO diet 2. Rule of 15 Obesity PLAN: 1. Low carb and calorie diet 2. Avoid snack and beverage between meal and at bedtime Total time spent on this encounter on this date of service, including pre-visit review of separately obtained history, nfpk-[id number] interaction performing medically appropriate physical exam, patientcounseling/education, interpretation of diagnostic results, care coordination and documentation was31 minute Ok Jorge MD 06/24/2022 documented in this encounter Plan of Treatment Upcoming Encounters Date Type Department Care Team (Late st Contact Info) Description 10/08/2024 2:15 PM CRAFT MANAGER Office Visit [facility] UROLOGY #2 [place] [address] Orlin Urbina, HAND WELT BUTTER, HIGHWAY RESEARCH ENGINEER [address] [place] [address] 10/18/2024 2:15 PM CRAFT MANAGER [facility]ointment [facility] 1 [place] [address] Oswaldo Serrano MD #[address] [address] Discharge Disposition: Discharged to home or Selfcare 11/29/2024 2:30 PM CRAFT MANAGER [facility] - [facility] #2 [place] [address] Oswaldo Serrano MD #2 [facility] [address] [place] [address] 11/30/2024 3:00 PM CRAFT MANAGER Office Visit [facility] - Endocrinology [facility] #2 [place] [address] Ok Jorge MD #[address] [address] documented as of this encounter Procedures Procedure Name Priority Date/Time Associated Diagnosis Comments POCT GLYCOSYLATED HEMOGLOBIN Routine 06/24/2022 3:56 PM CDT Type 2 diabetes mellitus treated with insulin (HCC) documented in this encounter Results * (ABNORMAL) POCT GLYCOSYLATED HEMOGLOBIN (06/24/2022 3:56 PM CDT) HGB-A1C 8.5(A) 4 - 6 06/24/2022 3:56 PM CDT Ok Jorge MD POINT OF CARE TESTING (MANUAL) F inal Result documented in this encounter Visit Diagnoses Diagnosis Type 2 diabetes mellitus treated with insulin (HCC)- Primary Class 3 severe obesity due to excess calories with serious comorbidity and body mass index (BMI) of 45.0 to 49.9 in adult (HCC) Insulin dose changed ([facility]) Hypoglycemia Hypoglycemia, unspecified documented in this encounter Additional Health Concerns Assessment Noted Time PHQ-9 Depression Total Score: 2 07/18/20 20 4:26 PM CDT documented as of this encounter Care Teams Roguer Relationship Specialty Start Date End Date Oswaldo Serrano MD #2 [facility] [address] [place] [address] PCP - General Family Medicine 05/19/17 Agnel Crowe DPM #2 [facility] [address] [place] [address] Consulting Physician Podiatry 06/16/17 Mora Fritz Behavioral Health Navigator 06/15/18 Ok Jorge MD #2 [facility] [address] [place] [address] Consulting Physician Endocrinology 05/12/22 documented as of this encounter
--- OUTSIDE RECORDS SUMMARY | 2024-10-07 00:25 | XMS_ITS | Encounter Summary ---
Author Organization [facility] Address [address] [place] [address] Phone Care Team Providers Care Flour Mixer Name Role Phone Oswaldo Serrano MD Primary Care Provider [phone] Angel Crowe DPM Unavailable Mora Fritz Unavailable Unavailable Encounter Details Date Type Department Care Team (Late st Contact Info) Description 01/26/2022 Telephone [facility] - General Surgery [facility] #[address] [phone] Danis Santiago MD #[address] [address] Social History Tobacco Use Types Packs/Day Years [...] suspected to have Coronavirus/COVID-19? No / Unsure 01/21/2022 1:09 PM CDT documented as of this encounter Miscellaneous Notes * Telephone Encounter - Sylvia Aguilar CMA - 01/26/2022 8:21 AM CDT Unable to contact patient in reference to referral that was placed with General Surgery department.Letter is being sent via mail to patient. documented in this encounter Plan of Treatment Upcoming Encounters Date Type Department Care Team (Late st Contact Info) Description 10/08/2024 2:15 PM OPERATIONS RESEARCH DIRECTOR Office Visit [facility] #2 [place] [address] Orlin Urbina APRN, RETAIL SALES LEAD #2 [place] [address] 10/18/2024 2:15 PM OPERATIONS RESEARCH DIRECTOR Appointment [facility] 1 [place] [phone] Oswaldo Serrano MD #[address] [address] Discharge Disposition: Discharged to home or Selfcare 11/29/2024 2:30 PM OPERATIONS RESEARCH DIRECTOR Office Visit [facility] - Family Medicine [facility] #2 [place] [address] Oswaldo Serrano MD #2 [facility] [address] [place] [address] 11/30/2024 3:00 PM OPERATIONS RESEARCH DIRECTOR Office Visit [facility] - Endocrinology - [place] #2 [place] [address] Ok Jorge MD #[address] [address] documented as of this encounter Visit Diagnoses Not on filedocumented in this encounter Additional Health Concerns Assessment Noted Time PHQ-9 Depression Total Score: 2 07/18/20 20 4:26 PM CDT documented as of this encounter Care Teams Flour Mixer Relationship Specialty Start Date End Date Oswaldo Serrano MD #[address] [address] PCP - General Family Medicine 05/19/17 Angel Crowe DPM #[address] [address] Consulting Physician Podiatry 06/16/17 Mora Fritz Behavioral Health Navigator 06/15/18 documented as of this encounter
--- OUTSIDE RECORDS SUMMARY | 2024-10-07 00:25 | XMS_ITS | Encounter Summary ---
Author Organization [facility] Address [address] [place] [address] Phone Care Team Providers Care Emr Implementation Specialist Name Role Phone Oswaldo Serrano MD Primary Care Provider [phone] Angel Crowe DPM Unavailable [phone] Mora Fritz Unavailable Unavailable Reason for Visit * Reason Comments Medication Refill Encounter Details Date Type Department Care Team (Late st Contact Info) Description 01/27/2022 Refill [facility] - Family Medicine [facility] #2 [place] [address] Connor Yuan, JOHN, BID ANALYST #[address] [address] Medication Refill Social History Tobacco Use Types [...] Telephone Encounter - Mica Morales RN - 01/28/2022 8:12 AM CDT Medication(s) [facility] Medication Refill Standing Order for Pediatricand Adult Patients. Requested Prescriptions Pending Prescriptions Disp Refills ??? furosemide (LASIX) 40 MG Tablet [Pharmacy Med Name: FUROSEMIDE 40MG] 90 Tablet 2 Sig: TAKE ONE TABLET BY MOUTH EVERY DAY Diuretics Protocol Passed - 01/27/2022 4:28 PM Passed - Serum potassium on record [...] Clinician-entered: BP Readings from Last 3 Encounters: 01/05/22 122/76 12/10/21 124/76 11/06/21 126/82 Patient-entered: No data recorded Passed - Visit with relevant provider in past 12 months or upcoming 90 days Recent Visits Date Type Provider Dept 01/05/22 Office Visit Oswaldo Serrano MD [facility] 10/07/21 Office Visit Oswaldo Serrano MD [facility] 07/28/21 Telemedicine Oswaldo Serrano MD [facility] 05/14/21 Office Visit Connor Yuan APRN, BID ANALYST [facility] 02/27/21 Office Visit Oswaldo Serrano MD [facility] 02/16/21 Office Visit Oswaldo Serrano MD [facility] Showing recent visits within past 365 days [...] st Contact Info) Description 10/08/2024 2:15 PM OPTICAL INSTRUMENT ASSEMBLER Office Visit [facility] UROLOGY #2 [place] [address] Orlin Urbina APRN, BID ANALYST #2 [place] [address] 10/18/2024 2:15 PM OPTICAL INSTRUMENT ASSEMBLER [facility] 1 [place] [address] Oswaldo Serrano MD #[address] [address] Discharge Disposition: Discharged to home or Selfcare 11/29/2024 2:30 PM OPTICAL INSTRUMENT ASSEMBLER [facility] - Family Medicine - [place] #2 [place] [address] Oswaldo Serrano MD #[address] [address] 11/30/2024 3:00 PM OPTICAL INSTRUMENT ASSEMBLER Office Visit [facility] - Endocrinology - [place] #2 [place] [address] Ok Jorge MD #2 [facility] [address] [place] [phone] documented as of this encounter Visit Diagnoses Diagnosis Chronic congestive heart failure, unspecified heart failure type (HCC) documented in this encounter Additional Health Concerns Assessment Noted Time PHQ-9 Depression Total Score: 2 07/18/20 20 4:26 PM CDT documented as of this encounter Care Teams Emr Implementation Specialist Relationship Specialty Start Date End Date Oswaldo Serrano MD #2 [facility] [address] [place] [address] PCP - General Family Medicine 05/19/17 Angel Crowe DPM #2 [facility] [address] [place] [address] Consulting Physician Podiatry 06/16/17 Mora Fritz Behavioral Health Navigator 06/15/18 documented as of this encounter
--- OUTSIDE RECORDS SUMMARY | 2024-10-07 00:25 | XMS_ITS | Encounter Summary ---
Author Organization [facility] Address [address] [place] [address] Phone Care Team Providers Care Boat Camp Operator Name Role Phone Oswaldo Serrano MD Primary Care Provider Angel Crowe DPM Unavailable [phone] Mora Fritz Unavailable Unavailable Reason for Visit * Reason Onset Date Comments Medication Refill 10/22/2021 Encounter Details Date Type Department Care Team (Late st Contact Info) Description 10/22/2021 Refill [facility] UROLOGY #2 [place] [phone] Edwar Romo MD #[address] [address] Medication Refill Social History Tobacco Use Types [...] Exposure Response Date Recorded In the last month, have you been in contact with someone who was confirmed or suspected to have Coronavirus / COVID-19? No / Unsure 11/06/2021 11:06 AM FOOD AND BEVERAGE CONTROLLER documented as of this encounter Miscellaneous Notes * Telephone Encounter - Peggy Parson RN - 10/22/2021 10:[address] Romo, patient will need office visit prior to refilling medications AND BEVERAGE CONTROLLER * Telephone Encounter - Montserrat Moscoso RMA - 10/22/2021 10:21 AM CST Refill has been pended to [facility]. Requested Prescriptions Pending Prescriptions Disp Refills ??? desmopressin (DDAVP) 0.2 MG Tablet 90 Tablet 3 Sig: Take 1 Tablet by mouth nightly. Limit intake of liquids after the evening meal. AND BEVERAGE CONTROLLER documented in this encounter Plan of Treatment Upcoming Encounters Date Type Department Care Team (Late st Contact Info) Description 10/08/2024 2:15 PM FOOD AND BEVERAGE CONTROLLER Office Visit [facility] UROLOGY #2 [place] [address] Orlin Urbina APRN, THREAD GRINDER TOOL #2 [place] [address] 10/18/2024 2:15 PM FOOD AND BEVERAGE CONTROLLER Appointment [facility] 1 [place] [address] Oswaldo Serrano MD #[address] [address] Discharge Disposition: Discharged to home or Selfcare 11/29/2024 2:30 PM FOOD AND BEVERAGE CONTROLLER Office Visit [facility] - Family Medicine [facility] #2 [place] [address] Oswaldo Serrano MD #[address] [address] 11/30/2024 3:00 PM FOOD AND BEVERAGE CONTROLLER Office Visit [facility] Endocrinology [facility] #2 [place] [address] Ok Jorge MD #[address] [address] documented as of this encounter Visit Diagnoses Diagnosis Nocturnal enuresis documented in this encounter Additional Health Concerns Assessment Noted Time PHQ-9 Depression Total Score: 2 07/18/20 20 4:26 PM CDT documented as of this encounter Care Teams Boat Camp Operator Relationship Specialty Start Date End Date Oswaldo Serrano MD #[address] [address] PCP - General Family Medicine 05/19/17 Angel Crowe DPM #[address] [address] Consulting Physician Podiatry 06/16/17 Mora Fritz Behavioral Health Navigator 06/15/18 documented as of this encounter
--- OUTSIDE RECORDS SUMMARY | 2024-10-07 00:25 | XMS_ITS | Encounter Summary ---
Author Organization [facility] Address [address] [place] [address] Phone Care Team Providers Care Director Of Quality Control Name Role Phone Oswaldo Serrano MD Primary Care Provider [phone] Angel Crowe DPM Unavailable [phone] Mora Fritz Unavailable Unavailable Reason for Visit * Reason Comments Follow-up 1 yr nocturnal enuresis Urinary Frequency 2x at night Encounter Details Date Type Department Care Team (Late st Contact Info) Description 10/27/2021 2:30 PM CURRICULUM DEVELOPMENT COORDINATOR Office Visit [facility] #2 [place] [address] Orlin Urbina APRN, INSTRUMENTAL TEACHER #[address] [place] [address] OAB (overactive bladder) (Primary Dx); Nocturnal enuresis [...] have Coronavirus / COVID-19? No / Unsure 10/27/2021 3:19 PM CURRICULUM DEVELOPMENT COORDINATOR documented as of this encounter Last Filed Vital Signs Vital Sign Reading Time Taken Comments Blood Pressure 124/68 10/27/2021 2:35 PM CURRICULUM DEVELOPMENT COORDINATOR Pulse 104 10/27/2021 2:35 PM CURRICULUM DEVELOPMENT COORDINATOR Temperature 35.9 ??C (96.6 ??F) 10/27/2021 2:35 PM CS T Respiratory Rate 20 10/27/2021 2:35 PM CURRICULUM DEVELOPMENT COORDINATOR Oxygen Saturation 97% 10/27/2021 2:35 PM CURRICULUM DEVELOPMENT COORDINATOR Inhaled Oxygen Concentration - - Weight 137 kg (302 lb) 10/27/2021 2:35 PM CURRICULUM DEVELOPMENT COORDINATOR Height 167.6 cm (5' 6 ) 10/27/2021 2:35 PM CURRICULUM DEVELOPMENT COORDINATOR Body Mass Index 48.74 10/27/2021 2:35 PM CURRICULUM DEVELOPMENT COORDINATOR documented in this encounter Patient Instructions * Patient Instructions* Orlin Urbina APRN, CNP - 10/27/2021 2:30 PM CURRICULUM DEVELOPMENT COORDINATOR Discontinue desmopressin Discontinue Oxybutynin Sending prescription to your pharmacy for Myrbetriq 50 mg daily. Take this medication at the same time every day. I would like to see back in 4 weeks to re-evaluate medication effectiveness Stop drinking fluids 2 hours before bedtime Elevate legs 2 hours before bedtime Purchased some compression hose to wear during the day ICULUM DEVELOPMENT COORDINATOR ICULUM DEVELOPMENT COORDINATOR documented in this encounter Progress Notes * Dariel Dowling RMA - 10/27/2021 2:30 PM CST POCT Bladder Scan collected per standing order of Orlin Urbina DEPUTY TREASURER on 10/27/2021 PVR= 189 ML POCT UA collected per order of Orlin Urbina DEPUTY TREASURER on 10/27/2021 ICULUM DEVELOPMENT COORDINATOR * Orlin Urbina APRN, CNP - 10/27/2021 2:30 PM CST UROLOGY [facility] 2 [facility], [address] [place] [address] PHONE: FAX: Assessment & Plan Urine today negative for blood or infection . PVR is 189. Will discontinue desmopressin due to ineffectiveness. Will stop oxybutynin due to side effect of confusion and dry mouth. Plan to start patient on Myrbetriq 50 mg daily. Medication administration, side effects, and used discussed with patient and family member in the room. We discussed good glycemic control to help improve her urinary symptoms. Patient to reach out to PCP. Patient instructed to limit fluids 2 hours before bedtime as wellas elevate legs 2 hours before bedtime. Patient instructed by compression hose to wear in the legs during the day. Left patient follow-up in 4 weeks to assess medication effectiveness and to recheck P VR. Subjective: 10/27/2021 HPI: HPI: Loretta Penn presents to the office for follow-up on urinary frequency and nocturnal enuresis. Patient reports the symptoms have been going on for the past year. Patient is currently taking oxybutynin and desmopressin. She reports that since she started the desmopressin she has not noticed any improvement with wetting the bed. She does report that she has less urgency and frequency during the day on the oxybutynin. She reports though some intermittent episodes of confusion and dry mouth. Patient also has history of diabetes. Reports blood sugars have been running in the 200-300 range. Daytime Frequency: Every 2 hours Nocturia: X2 Urgency: Present Urge Incontinence: Present Stress Incontinence: Present Pads/day: 7-8/day Saturated/Unsaturated: Not saturated Dysuria: Denies Hematuria: Denies The following portions of the patient's chart were reviewed in this encounter and updated as appropriate: Tobacco Allergies Meds ROS: Review of Systems Constitutional: Negative for chills and fever. Respiratory: Negative for cough and shortness of breath. Cardiovascular: Negative for chest pain and palpitations. Gastrointestinal: Negative for abdominal pain, diarrhea, nausea and vomiting. Genitourinary: Positive for frequency and urgency. Negative for hematuria. Mixed incontinence. Nocturnal enuresis Musculoskeletal: Negative for myalgias. Neurological: Negative for dizziness and weakness. Psychiatric/Behavioral: Positive for memory loss. Objective: Vital signs: BP 124/68 (BP Location: Right Arm, BP Position: Sitting, BP Cuff Size: Regular) Pulse 104 Temp 96.6 ??F (35.9 ??C) (Temporal) Resp 20 Ht 5' 6 (1.676 m) Wt 302 lb (137 kg) LMP (LMP Unknown) SpO2 97% BMI 48.74 kg/m?? There were no vitals filed for this visit. Physical Exam Constitutional: General: She is not in acute distress. Appearance: Normal appearance. She is obese. She is not ill-appearing. HENT: Head: Normocephalic. Cardiovascular: Rate and Rhythm: Normal rate and regular rhythm. Pulmonary: Effort: No respiratory distress. Chest: Chest wall: No [...] normal. Lab Results Component Value Date WBC 6.27 07/02/2021 HEMOGLOBIN 14.7 07/02/2021 HEMATOCRIT 45.1 07/02/2021 PLATELETCNT 279 07/02/2021 MCV 96.6 (H) 07/02/2021 Lab Results Component Value Date SODIUM 136 07/02/2021 POTASSIUM 4.1 07/02/2021 CHLORIDE 98 (L) 07/02/2021 CO2VEN 29 07/02/2021 ANIONGAP 13.1 07/02/2021 GLUCOSE 132 (H) 07/02/2021 BUN 19 07/02/2021 CREATININE 0.95 07/02/2021 BCRATIO8 20 07/02/2021 TOTALPROTEIN 7.6 07/02/2021 ALBUMIN 4.1 07/02/2021 AGRATIO 0.9 07/16/2017 CALCIUM 9.4 07/02/2021 TBIL 0.4 07/02/2021 SGOTAST 19 07/02/2021 SGPTALT 18 07/02/2021 ALKALINEPHO 174 (H) 07/02/2021 GFRNA 60 07/02/2021 GFRA >60 07/02/2021 No results found for: PSASCREEN, PSA, PSAFREE, PSAPCNTFREE, PSATOTAL Results for orders placed or performed in visit on 10/20/21 URINALYSIS REFLEX IF INDICATED BY ABNORMAL RESULTS Result Value Ref Range Status SPECIFIC GRAVITY 1.020 1.003 - 1.030 Final URINE PH 6.0 5.0 - 9.0 Final WBC ESTERASE Negative Negative Final NITRITE Negative Negative Final PROTEIN, RANDOM URINE 15 mg/dL (A) Negative Final URINE GLUCOSE, QUAL 1000 mg/dL (A) Negative Final URINE KETONES Negative Negative Final UROBILINOGEN Normal Normal mg/dL Final URINE BLOOD 50 /uL (A) Negative jolene/ul Final URINALYSIS COLOR Yellow Final URINALYSIS CLARITY Slightly Cloudy Final WBC (Urine) 0-5 Negative, 0-5 /hpf Final URINE RBC'S 6-10 (A) Negative, 0-2 /hpf Final EPITHELIAL CELLS Small amount /lpf Final BACTERIA, URINE Moderate (A) Negative /hpf Final CULTURE, URINE Specimen: Urine Clean Catch; Culture Result Value Ref Range Status CULTURE RESULTS Final MIXED GROWTH OF ONE OR MORE DISTAL URETHRAL CONTAMINANTS Results for orders placed or performed in [...] 365 days. Loretta was seen today for follow-up, nocturnal enuresis and urinary frequency. Diagnoses and all orders for this visit: OAB (overactive bladder) - POCT UA AUTOMATED W/O MICRO; Standing - POCT UA AUTOMATED W/O MICRO - Mirabegron ER (Myrbetriq) 50 MG TABLET SR 24 HR; Take 50 mg by mouth daily. - LISA,POST-VOID RES,US,NON-IMAGING; Standing Nocturnal enuresis - POCT UA AUTOMATED W/O MICRO; Standing - POCT UA AUTOMATED W/O MICRO - Mirabegron ER (Myrbetriq) 50 MG TABLET SR 24 HR; Take 50 mg by mouth daily. - LISA,POST-VOID RES,US,NON-IMAGING; Standing By: Orlin Urbina APRN, CNP, 10/27/2021, 4:09 PM CURRICULUM DEVELOPMENT COORDINATOR Primary Care Physician: Oswaldo Serrano MD Cosigned by Edwar Romo MD at 10/28/2021 4:59 PM CURRICULUM DEVELOPMENT COORDINATOR ICULUM DEVELOPMENT COORDINATOR ICULUM DEVELOPMENT COORDINATOR documented in this encounter Plan of Treatment Upcoming Encounters Date Type Department Care Team (Late st Contact Info) Description 10/08/2024 2:15 PM CURRICULUM DEVELOPMENT COORDINATOR Office Visit [facility] #[address] [place] [address] Orlin Urbina APRN, INSTRUMENTAL TEACHER #[address] [place] [address] 10/18/2024 2:15 PM CURRICULUM DEVELOPMENT COORDINATOR Appointment [facility] 1 [place] [address] Oswaldo Serrano MD #2 [facility] [address] [place] [address] Discharge Disposition: Discharged to home or Selfcare 11/29/2024 2:30 PM CURRICULUM DEVELOPMENT COORDINATOR Office Visit [facility] - [place] #2 [place] [address] Oswaldo Serrano MD #2 [facility] [address] [place] [address] 11/30/2024 3:00 PM CURRICULUM DEVELOPMENT COORDINATOR Office Visit [facility] Endocrinology - [place] [address] [place] [address] Ok Jorge MD #2 [facility] [address] [place] [address] Scheduled Orders Name Type Priority Associated Diagnoses Order Schedule POCT UA AUTOMATED W/O MICRO Point of Care Testing (manual) Routine Nocturnal enuresis OAB (overactive bladder) 12 Occurrences starting 10/27/2021 until 04/25/2023, 1 completed LISA,POST-VOID RES,US,NON-IMAGING Procedures Routine Nocturnal enuresis OAB (overactive bladder) 12 Occurrences starting 10/27/2021 until 04/25/2023 documented as of this encounter Procedures Procedure Name Priority Date/Time Associated Diagnosis Comments POCT UA AUTOMATED W/O MICRO Routine 10/27/2021 2:32 PM CURRICULUM DEVELOPMENT COORDINATOR Nocturnal enuresis OAB (overactive bladder) documented in this encounter Results * (ABNORMAL) POCT UA AUTOMATED W/O MICRO (10/27/2021 2:32 PM CURRICULUM DEVELOPMENT COORDINATOR) POC UA SPECIFIC GRAVITY 1.010 URINE PH 5.0 5.0 - 9.0 UR, LEUKOCYTES Negative Negative Lucas/uL UR, NITRITE Negative Negative UR, PROTEIN Negative Negative mg/dL UR, GLUCOSE 3+ (>1000 mg/dL)(A) Normal mg/dL UR, KETONE Negative Negative mg/dL UR, UROBILINOGEN Normal Normal mg/dL UR, BILIRUBIN Negative Negative mg/dL UR. BLOOD Negative Negative URINALYSIS COLOR Colorless URINALYSIS CLARITY Clear Urine 10/27/2021 2:32 PM CURRICULUM DEVELOPMENT COORDINATOR Orlin Urbina APRN, INSTRUMENTAL TEACHER POINT OF CARE TESTING (MANUAL) Final Result documented in this encounter Visit Diagnoses Diagnosis OAB (overactive bladder)- Primary Hypertonicity of bladder Nocturnal enuresis documented in this encounter Additional Health Concerns Assessment Noted Time PHQ-9 Depression Total Score: 2 07/18/20 20 4:26 PM CDT documented as of this encounter Care Teams Director Of Quality Control Relationship Specialty Start Date End Date Oswaldo Serrano MD #[address] [address] PCP - General Family Medicine 05/19/17 Angel Crowe DPM #[address] [address] Consulting Physician Podiatry 06/16/17 Mora Fritz Behavioral Health Navigator 06/15/18 documented as of this encounter
--- OUTSIDE RECORDS SUMMARY | 2024-10-07 00:25 | XMS_ITS | Encounter Summary ---
Author Organization [facility] Address [address] [place] [address] Phone Care Team Providers Care Chartered Wealth Manager Name Role Phone Oswaldo Serrano MD Primary Care Provider [phone] Angel Crowe DPM Unavailable Mora Fritz Unavailable Unavailable Ok Jorge MD Unavailable Orlin Urbina APRN, FAITH HEALER Unavailable + [phone] Reason for Visit * Reason Comments Medication Refill Encounter Details Date Type Department Care Team (Late st Contact Info) Description 01/21/2022 Refill [facility] - [place] #2 [place] [address] Connor Yuan APRN, FAITH HEALER #[address] [address] Medication Refill Social History Tobacco Use Types [...] Telephone Encounter - Mica Morales RN - 01/25/2022 10:58 AM CDT Per pharmacy, patient is taking this daily - they put all her medications in pill packs and this isone that is included. * Telephone Encounter - Oswaldo Serrano MD - 01/25/2022 12:27 AM CDT Mica, please talk to me about this tomorrow (Tuesday). I am a little confused about this message. Thanks! * Telephone Encounter - Kacie Adam RN - 01/22/2022 3:09 PM CDT Pharmacy calling, see note below, they have been doing a pill organizer for her weekly for years, been sending it, unless she is taking it out then she has it in her pill organizer, please call pharmacy back. * Telephone Encounter - Mica Morales RN - 01/22/2022 2:26 PM CDT Provider to review recent lab work completed 01/21/22 for medical necessity. CMP - Potassium 4.5 * Telephone Encounter - Mica Morales RN - 01/22/2022 9:03 AM CDT Patient reported she was not taking this 10/27/21 documented in this encounter Plan of Treatment Upcoming Encounters Date Type Department Care Team (Late st Contact Info) Description 10/08/2024 2:15 PM CONVENIENCE STORE CLERK Office Visit [facility] #2 [place] [address] Orlin Urbina, ASPHALT RAKER, FAITH HEALER #2 [place] [address] 10/18/2024 2:15 PM CONVENIENCE STORE CLERK [facility]ment [facility] 1 [place] [address] Oswaldo Serrano MD #[address] [address] Discharge Disposition: Discharged to home or Selfcare 11/29/2024 2:30 PM CONVENIENCE STORE CLERK Office Visit [facility] - [place] #2 [place] [address] Oswaldo Serrano MD #[address] [address] 11/30/2024 3:00 PM CONVENIENCE STORE CLERK Office Visit [facility] - [place] #2 [place] [address] Ok Jorge MD #[address] [address] documented as of this encounter Visit Diagnoses Diagnosis Chronic congestive heart failure, unspecified heart failure type (HCC) documented in this encounter Additional Health Concerns Assessment Noted Time PHQ-9 Depression Total Score: 2 07/18/20 20 4:26 PM CDT documented as of this encounter Care Teams Chartered Wealth Manager Relationship Specialty Start Date End Date Oswaldo Serrano MD #[address] [address] PCP - General Family Medicine 05/19/17 Angel Crowe DPM #[address] [address] Consulting Physician Podiatry 06/16/17 Mora Fritz [place] Behavioral Health Navigator 06/15/18 Ok Jorge MD #[address] [address] Consulting Physician Endocrinology 05/12/22 Orlin Urbina, ASPHALT RAKER, FAITH HEALER #[address] [place] [address] Nurse Practitioner Advanced Practice Nurse 11/09/22 documented as of this encounter
--- OUTSIDE RECORDS SUMMARY | 2024-10-07 00:25 | XMS_ITS | Encounter Summary ---
Author Organization [facility] Address [address] [place] [address] Phone Care Team Providers Care Preparation Supervisor Canning Name Role Phone Oswaldo Serrano MD Primary Care Provider [phone] Angel Crowe DPM Unavailable Mora Fritz Unavailable Unavailable Ok Jorge MD Unavailable Orlin Urbina APRN, DIRECTOR OF CARDIAC CATH LAB Unavailable [phone] Reason for Visit * Reason Comments Medication Refill Encounter Details Date Type Department Care Team (Late st Contact Info) Description 02/03/2022 Refill [facility] #[address] [place] [address] Oswaldo Serrano MD #[address] [address] Medication Refill Social History Tobacco Use Types [...] suspected to have Coronavirus/COVID-19? No / Unsure 01/29/2022 8:26 AM CDT documented as of this encounter Miscellaneous Notes * Telephone Encounter - Zainab Roblero RN - 02/04/2022 9:54 AM CDT Medication failed the protocol, provider to review and approve the medication order if appropriate. Requested Prescriptions Pending Prescriptions Disp Refills Cyanocobalamin (B-12) 500 MCG Tablet [Pharmacy Med Name: B-12 500MCG] 90 Tablet 2 Sig: TAKE ONE TABLET BY MOUTH EVERY DAY Not Delegated - Off Protocol Failed - 02/03/2022 4:13 PM Failed - This refill cannot be delegated Failed - Active on medication list Passed - Visit with relevant provider in past 12 months or upcoming 90 days Recent Visits Date Type Provider Dept 01/05/22 Office Visit Oswaldo Serrano MD [facility] 10/27/21 Office Visit Orlin Urbina APRN, DIRECTOR OF CARDIAC CATH LAB [facility] [place] 10/07/21 Office Visit Oswaldo Serrano MD [facility] 07/28/21 Telemedicine Oswaldo Serrano MD [facility] 05/14/21 Office Visit Connor Yuan APRN, DIRECTOR OF CARDIAC CATH LAB [facility] [place] 02/27/21 Office Visit Oswaldo Serrano MD [facility] 02/16/21 Office Visit Oswaldo Serrano MD [facility] Showing recent visits within past 365 days and meeting all other requirements Future Appointments No visits were found meeting these conditions. Showing future appointments within next 90 days and meeting all other requirements * Telephone Encounter - Mica Morales RN - 02/04/2022 9:52 AM CDT Medication failed the protocol, provider to review and approve the medication order if appropriate. Requested Prescriptions Pending Prescriptions Disp Refills Cyanocobalamin (B-12) 500 MCG Tablet [Pharmacy Med Name: B-12 500MCG] 90 Tablet 2 Sig: TAKE ONE TABLET BY MOUTH EVERY DAY Not Delegated - Off Protocol Failed - 02/03/2022 4:13 PM Failed - This refill cannot be delegated Failed - Active on medication list Passed - Visit with relevant provider in past 12 months or upcoming 90 days Recent Visits Date Type Provider Dept 01/05/22 Office Visit Oswaldo Serrano MD [facility] 10/27/21 Office Visit Orlin Urbina APRN, DIRECTOR OF CARDIAC CATH LAB [facility] [place] 10/07/21 Office Visit Oswaldo Serrano MD [facility] 07/28/21 Telemedicine Oswaldo Serrano MD [facility] 05/14/21 Office Visit Connor Yuan APRN, DIRECTOR OF CARDIAC CATH LAB [facility] [place] 02/27/21 Office Visit Oswaldo Serrano MD [facility] 02/16/21 Office Visit Oswaldo Serrano MD [facility] Showing recent visits within past 365 days and meeting all other requirements Future Appointments No visits were found meeting these conditions. Showing future appointments within next 90 days and meeting all other requirements documented in this encounter Plan of Treatment Upcoming Encounters Date Type Department Care Team (Late st Contact Info) Description 10/08/2024 2:15 PM COPIER TECHNICIAN Office Visit [facility] #2 [place] [address] Orlin Urbina APRN, DIRECTOR OF CARDIAC CATH LAB #2 [place] [address] 10/18/2024 2:15 PM COPIER TECHNICIAN Appointment [facility] 1 [place] [address] Oswaldo Serrano MD #[address] [address] Discharge Disposition: Discharged to home or Selfcare 11/29/2024 2:30 PM COPIER TECHNICIAN Office Visit [facility] #2 [place] [address] Oswaldo Serrano MD #[address] [address] 11/30/2024 3:00 PM COPIER TECHNICIAN Office Visit [facility] - Endocrin[facility] #2 [place] [address] Ok Jorge MD #[address] [address] documented as of this encounter Visit Diagnoses Not on filedocumented in this encounter Additional Health Concerns Assessment Noted Time PHQ-9 Depression Total Score: 2 07/18/20 20 4:26 PM CDT documented as of this encounter Care Teams Preparation Supervisor Canning Relationship Specialty Start Date End Date Oswaldo Serrano MD #[address] [address] PCP - General Family Medicine 05/19/17 Angel Crowe DPM #2 [facility] [address] [place] [address] Consulting Physician Podiatry 06/16/17 Mora Fritz [place] Behavioral Health Navigator 06/15/18 Ok Jorge MD #2 [facility] [address] [place] [address] Consulting Physician Endocrinology 05/12/22 Orlin Urbina APRN, DIRECTOR OF CARDIAC CATH LAB #2 [place] [address] Nurse Practitioner Advanced Practice Nurse 11/09/22 documented as of this encounter
--- OUTSIDE RECORDS SUMMARY | 2024-10-07 00:25 | XMS_ITS | Encounter Summary ---
Author Organization [facility] Care Team Providers Care Menagerie Caretaker Name Role Phone Oswaldo Serrano MD Primary Care Provider [phone] Angel Crowe DPM Unavailable [phone] Mora Fritz Unavailable Unavailable Encounter Details Date Type Department Care Team (Latest Contact Info) Description 11/06/2021 Travel Social History Tobacco Use Types Packs/Day [...] COVID-19? No / Unsure 11/06/2021 11:06 AM BUSINESS SPECIALIST documented as of this encounter Plan of Treatment Upcoming Encounters Date Type Department Care Team (Late st Contact Info) Description 10/08/2024 2:15 PM BUSINESS SPECIALIST Office Visit [facility] #2 [place] [phone] Orlin Urbina, DAMAGE INSIDE ADJUSTER, STRETCH PRESS OPERATOR #2 [place] [address] 10/18/2024 2:15 PM BUSINESS SPECIALIST [facility]ointment [facility] 1 [place] [address] Oswaldo Serrano MD #[address] [facility] [address] [place] [address] Discharge Disposition: Discharged to home or Selfcare 11/29/2024 2:30 PM BUSINESS SPECIALIST Office Visit [facility] - [place] #2 [place] [address] Oswaldo Serrano MD #[address] [facility] [address] [place] [address] 11/30/2024 3:00 PM BUSINESS SPECIALIST Office Visit [facility] Endocrinology - [place] #2 [place] [address] Ok Jorge MD #[address] [facility] [address] [place] [address] documented as of this encounter Visit Diagnoses Not on filedocumented in this encounter Additional Health Concerns Assessment Noted Time PHQ-9 Depression Total Score: 2 07/18/20 20 4:26 PM CDT documented as of this encounter Care Teams Menagerie Caretaker Relationship Specialty Start Date End Date Oswaldo Serrano MD #[address] [address] PCP - General Family Medicine 05/19/17 Angel Crowe DPM #[address] [address] Consulting Physician Podiatry 06/16/17 Mora Fritz Behavioral Health Navigator 06/15/18 documented as of this encounter
--- OUTSIDE RECORDS SUMMARY | 2024-10-07 00:25 | XMS_ITS | Encounter Summary ---
Author Organization [facility] Address [address] [place] [address] Phone Care Team Providers Care Power Reactor Supervisor Name Role Phone Oswaldo Serrano MD Primary Care Provider [phone] Angel Crowe DPM Unavailable Mora Fritz Unavailable Unavailable Ok Jorge MD Unavailable Orlin Urbina APRN, CURING MACHINE OPERATOR Unavailable [phone] Reason for Visit * Reason Comments Medication Refill Encounter Details Date Type Department Care Team (Late st Contact Info) Description 01/19/2022 Refill [facility] [place] [facility] #2 [place] [address] Orlin Urbina APRN, CURING MACHINE OPERATOR #2 [place] [address] Medication Refill Social History Tobacco Use Types [...] st Contact Info) Description 10/08/2024 2:15 PM COKEMAN Office Visit [facility] UROLOGY #2 [place] [address] Orlin Urbina, PANEL WIRER, CURING MACHINE OPERATOR #2 [place] [address] 10/18/2024 2:15 PM COKEMAN Appointment [facility] Mammography 1 [place] [address] Oswaldo Serrano MD #[address] [address] Discharge Disposition: Discharged to home or Selfcare 11/29/2024 2:30 PM COKEMAN Office Visit [facility] - [facility] #2 [place] [address] Osawldo Serrano MD #[address] [address] 11/30/2024 3:00 PM COKEMAN Office Visit [facility] - Endocrinology - [place] #2 [place] [address] Ok Jorge MD #[address] [address] documented as of this encounter Visit Diagnoses Diagnosis Nocturnal enuresis OAB (overactive bladder) Hypertonicity of bladder documented in this encounter Additional Health Concerns Assessment Noted Time PHQ-9 Depression Total Score: 2 07/18/20 20 4:26 PM CDT documented as of this encounter Care Teams Power Reactor Supervisor Relationship Specialty Start Date End Date Oswaldo Serrano MD #[address] [address] PCP - General Family Medicine 05/19/17 Angel Crowe DPM #[address] [address] Consulting Physician Podiatry 06/16/17 Mora Fritz [place] Behavioral Health Navigator 06/15/18 Ok Jorge MD #[address] [address] Consulting Physician Endocrinology 05/12/22 Orlin Urbina APRN, CURING MACHINE OPERATOR #2 [place] [address] Nurse Practitioner Advanced Practice Nurse 11/09/22 documented as of this encounter
--- OUTSIDE RECORDS SUMMARY | 2024-10-07 00:25 | XMS_ITS | Encounter Summary ---
Author Organization [facility] [facility] Care Team Providers Care Retinal Surgeon Name Role Phone Oswaldo Serrano MD Primary Care Provider [phone] Angel Crowe DPM Unavailable [phone] Mora Fritz Unavailable Unavailable Encounter Details Date Type Department Care Team (Latest Contact Info) Description 12/10/2021 Travel Social History Tobacco Use Types Packs/Day [...] have Coronavirus / COVID-19? No / Unsure 12/10/2021 3:06 PM SHEET CATCHER documented as of this encounter Plan of Treatment Upcoming Encounters Date Type Department Care Team (Late st Contact Info) Description 10/08/2024 2:15 PM SHEET CATCHER Office Visit [facility] UROLOGY #2 [place] [address] Orlin Urbina, BUSINESS IMPROVEMENT MANAGER, GAS PLUMBING INSPECTOR #2 [place] [address] 10/18/2024 2:15 PM SHEET CATCHER [facility]ointment [facility] Mammography 1 [place] [phone] Oswaldo Serrano MD #2 [facility] [address] [place] [address] Discharge Disposition: Discharged to home or Selfcare 11/29/2024 2:30 PM SHEET CATCHER [facility] - [place] #2 [place] [address] Oswaldo Serrano MD #2 [facility] [address] [place] [address] 11/30/2024 3:00 PM SHEET CATCHER Office Visit [facility] - [place] #2 [place] [address] Ok Jorge MD #2 [facility] [address] [place] [address] documented as of this encounter Visit Diagnoses Not on filedocumented in this encounter Additional Health Concerns Assessment Noted Time PHQ-9 Depression Total Score: 2 07/18/20 20 4:26 PM CDT documented as of this encounter Care Teams Retinal Surgeon Relationship Specialty Start Date End Date Oswaldo Serrano MD #[address] [address] PCP - General Family Medicine 05/19/17 Angel Crowe DPM #[address] [address] Consulting Physician Podiatry 06/16/17 Mora Fritz Behavioral Health Navigator 06/15/18 documented as of this encounter
--- OUTSIDE RECORDS SUMMARY | 2024-10-07 00:25 | XMS_ITS | Encounter Summary ---
Author Organization [facility] Address [address] [place] [address] Phone Care Team Providers Care Automatic Profile Shaper Operator Name Role Phone Oswaldo Serrano MD Primary Care Provider Angel Corwe DPM Unavailable Mora Fritz Unavailable Unavailable Reason for Visit * Reason Comments Follow-up 3 month follow up DM Encounter Details Date Type Department Care Team (Late st Contact Info) Description 11/06/2021 11:00 AM PITCH GATHERER Office Visit [facility] - Endocrinology - [place] #[address] [place] [address] Ok Jorge MD #[address] [address] Type 2 diabetes mellitus treated [...] COVID-19? No / Unsure 11/06/2021 11:06 AM PITCH GATHERER documented as of this encounter Last Filed Vital Signs Vital Sign Reading Time Taken Comments Blood Pressure 126/82 11/06/2021 11:07 AM PITCH GATHERER Pulse 112 11/06/2021 11:07 AM PITCH GATHERER Temperature 36.3 ??C (97.3 ??F) 11/06/2021 11:[address] Respiratory Rate 20 11/06/2021 11:07 AM PITCH GATHERER Oxygen Saturation 98% 11/06/2021 11:07 AM PITCH GATHERER Inhaled Oxygen Concentration - - Weight 138.8 kg (306 lb) 11/06/2021 11:07 AM PITCH GATHERER Height 167.6 cm (5' 6 ) 11/06/2021 11:07 AM PITCH GATHERER Body Mass Index 49.39 11/06/2021 11:07 AM PITCH GATHERER documented in this encounter Patient Instructions * Patient Instructions* Ok Jorge MD - 11/06/2021 11:00 AM PITCH GATHERER Please take Tresiba 17 units in the morning Please take NovoLog 16-16-14 units before each meal Please use correctional factor insulin before each meal as directed Please monitor blood sugar before each meal and at bedtime Please bring blood sugar log for review at the next visit Contact Endocrinology Clinic for low blood sugar events Follow up visit in 1 month RULE OF 15: If you have signs/symptoms [...] 400 +9 UNITS ABOVE 400 +10 UNITS H GATHERER H GATHERER documented in this encounter Progress Notes * Ok Jorge MD - 11/06/2021 11:00 AM CST Subject&Objective Loretta Penn is a 60-year-old woman who comes to the Endocrinology office to discuss management of type 2 diabetes mellitus. 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 Other pertinent health history includes hypertension, dyslipidemia, and obesity. The patient was initially diagnosed with diabetes >10 years ago. Presently, the patient takes Tresiba (Lantus) 17 units in the morning, Humalog (NovoLog) 16 units with breakfast, 16 units with lunch, and 10 units with supper for management of hyperglycemia. The patient reports occasional, mild hypoglycemic events with intact symptoms of hypoglycemia awareness. Most episodes occur overnight. The patient denied severe low blood sugar events requiring third partyintervention. Unfortunately, the patient did not bring her glucose meter for download or a logbook for review at today's office appointment. Ms. Penn reported that morning blood sugars have been running mostly between 200 and 350 mg/dL with blood sugars checked at other times of the day in the range of 100 to 250 mg/ dL. The patient is afraid of low blood sugar event overnight so she usually has snack at bedtime. Hemoglobin A1c obtained by POC testing today was 9.7%. Physical Exam Vitals: 11/06/21 1107 BP: 126/82 Pulse: (!) 112 Resp: 20 Temp: 97.3 ??F (36.3 ??C) SpO2: 98% Weight: 306 lb (138.8 kg) Height: 5' 6 (1.676 m) Constitutional: appears well-developed and well-nourished. No acute distress. Head: Normocephalic and atraumatic. Cardiovascular: Normal rate and regular rhythm Pulmonary/Chest: Effort normal and breath sounds normal Abdominal: No lipohypertrophy at injection sites Lab Results Component Value Date HGBA1C 9.7 (A) 11/06/2021 Lab Results Component Value Date HEMATOCRIT 45.1 07/02/2021 Lab Results Component Value Date CREATININE 0.95 07/02/2021 GFRNA 60 07/02/2021 CALCIUM 9.4 07/02/2021 SGPTALT 18 07/02/2021 Lab Results Component Value Date SODIUM 136 07/02/2021 POTASSIUM 4.1 07/02/2021 CHLORIDE 98 (L) 07/02/2021 CO2VEN 29 07/02/2021 MAGNESIUM 2.0 12/13/2020 Assessment and Plan Loretta Penn is a middle-aged woman with type 2 diabetes mellitus whose glycemic control was suboptimal based on both review of her capillary blood glucose report and today's hemoglobin A1c measurement. In particular, hemoglobin A1c is well above the patient's [place] [employer] treatment target of less than 7%. Treatment consideration and hypoglycemic precaution were discussedwith her and her sister at some length. The patient is interested in CGM device to prevent low blood sugar event and improve glycemic control. She will take NovoLog 16-16-14 units before each meal and continue Tresiba 17 units in the morning for management of hyperglycemia. Ms. Penn is agreeable to avoid snack at bedtime. The patient will return for office reevaluation in 1 month. PLAN: 1. Take Tresiba 17 units at bedtime 2. Take NovoLog 16-16-14 units before each meal 3. Correctional factor insulin dosed at 1:30 if CBG is > 140 mg/dl 4. Monitor blood sugar QAC/QHS 5. Bring CBG log for review 6. Apply for a CGM 7. Contact Endocrinology Clinic for low blood sugar events 8. RTC in 1 month Hypoglycemia PLAN: 1. Consistent CHO diet 2. Rule of 15 Obesity PLAN: 1. Low carb and calorie diet 2. Avoid snack and beverage between meal and at bedtime Total time spent on this encounter on this date of service, including pre-visit review of separately obtained history, [id number] interaction performing medically appropriate physical exam, patientcounseling/education, interpretation of diagnostic results, care coordination and documentation was31 minute Ok Jorge MD 11/06/2021 H GATHERER documented in this encounter Plan of Treatment Upcoming Encounters Date Type Department Care Team (Late st Contact Info) Description 10/08/2024 2:15 PM PITCH GATHERER Office Visit [facility] UROLOGY #2 [place] [address] Orlin Urbina, HAT COPYIST, CLERK CARRIER #2 [place] [address] 10/18/2024 2:15 PM PITCH GATHERER [facility]ment [facility] 1 [place] [address] Oswaldo Serrano MD #[address] [address] Discharge Disposition: Discharged to home or Selfcare 11/29/2024 2:30 PM PITCH GATHERER [facility] Visit [facility] #2 [place] [address] Oswaldo Serrano MD #2 [facility] [address] [place] [address] 11/30/2024 3:00 PM PITCH GATHERER Office Visit [facility] Endocrinology [facility] #2 [place] [address] Ok Jorge MD #2 [facility] [address] [place] [address] documented as of this encounter Procedures Procedure Name Priority Date/Time Associated Diagnosis Comments POCT GLYCOSYLATED HEMOGLOBIN Routine 11/06/2021 11:17 AM PITCH GATHERER Type 2 diabetes mellitus treated with insulin ([facility]) documented in this encounter Results * (ABNORMAL) POCT GLYCOSYLATED HEMOGLOBIN (11/06/2021 11:17 AM PITCH GATHERER) HGB-A1C 9.7(A) 4 - 6 11/06/2021 11:1 7 AM PITCH GATHERER Ok Jorge MD POINT OF CARE TESTING (MANUAL) F inal Result documented in this encounter Visit Diagnoses Diagnosis Type 2 diabetes mellitus treated with insulin (HCC)- Primary Insulin dose changed ([facility]) Class 3 severe obesity due to excess calories with serious comorbidity and body mass index (BMI) of 45.0 to 49.9 in adult ([facility]) Hypoglycemia Hypoglycemia, unspecified documented in this encounter Additional Health Concerns Assessment Noted Time PHQ-9 Depression Total Score: 2 07/18/20 20 4:26 PM CDT documented as of this encounter Care Teams Automatic Profile Shaper Operator Relationship Specialty Start Date End Date Oswaldo Serrano MD #2 [facility] [address] [place] [address] PCP - General Family Medicine 05/19/17 Angel Crowe DPM #[address] [place] [address] [place] [address] Consulting Physician Podiatry 06/16/17 Mora Fritz Behavioral Health Navigator 06/15/18 documented as of this encounter
--- OUTSIDE RECORDS SUMMARY | 2024-10-07 00:25 | XMS_ITS | Encounter Summary ---
Author Organization [facility] Address [address] [place] [address] Phone Care Team Providers Care Guest Services Name Role Phone Oswaldo Serrano MD Primary Care Provider [phone] Angel Crowe DPM Unavailable [phone] Mora Fritz Unavailable Unavailable Reason for Visit * Reason Onset Date Comments Medication Management 12/08/2021 Insulin co verage Encounter Details Date Type Department Care Team (Late st Contact Info) Description 12/08/2021 Telephone [facility] - [place] #2 [place] [address] Ok Jorge MD #[address] [address] Medication Management (Insulin coverage) Social History Tobacco Use Types Packs/Day Years [...] Telephone Encounter - Ok Jorge MD - 12/10/2021 1:15 PM CST Rx of NovoLog sent STOCK FARM MANAGER * Telephone Encounter - Ynes Zuniga, RN - 12/08/2021 2:29 PM LIVESTOCK FARM MANAGER Humalog not covered by insurance, Novolog or Fiasp preferred. STOCK FARM MANAGER documented in this encounter Plan of Treatment Upcoming Encounters Date Type Department Care Team (Late st Contact Info) Description 10/08/2024 2:15 PM LIVESTOCK FARM MANAGER Office Visit [facility] GROUP UROLOGY #2 [place] [address] Orlin Urbina, COMB TENDER, BENEFITS ASSISTANT #2 [place] [address] 10/18/2024 2:15 PM LIVESTOCK FARM MANAGER Appointment [facility] Mammography 1 [place] [address] Oswaldo Serrano MD #[address] [address] Discharge Disposition: Discharged to home or Selfcare 11/29/2024 2:30 PM LIVESTOCK FARM MANAGER Office Visit [facility] - Family Medicine [facility] #2 [place] [address] Oswaldo Serrano MD #[address] [address] 11/30/2024 3:00 PM LIVESTOCK FARM MANAGER Office Visit [facility] - Endocrinology [facility] #2 [place] [address] Ok Jorge MD #[address] [address] documented as of this encounter Visit Diagnoses Not on filedocumented in this encounter Additional Health Concerns Assessment Noted Time PHQ-9 Depression Total Score: 2 07/18/20 20 4:26 PM CDT documented as of this encounter Care Teams Guest Services Relationship Specialty Start Date End Date Oswaldo Serrano MD #[address] [address] PCP - General Family Medicine 05/19/17 Angel Crowe DPM #[address] [address] Consulting Physician Podiatry 06/16/17 Mora Fritz [place] Behavioral Health Navigator 06/15/18 documented as of this encounter
--- OUTSIDE RECORDS SUMMARY | 2024-10-07 00:25 | XMS_ITS | Encounter Summary ---
Author Organization [address] Care Team Providers Care Conservation Officer Name Role Phone Oswaldo Serrano MD Primary Care Provider [phone] Angel Crowe DPM Unavailable [phone] Mora Fritz Unavailable Unavailable Encounter Details Date Type Department Care Team (Latest Contact Info) Description 01/21/2022 Travel Social History Tobacco Use Types Packs/Day [...] st Contact Info) Description 10/08/2024 2:15 PM CRATING AND MOVING ESTIMATOR Office Visit [facility] UROLOGY #[address] [facility] [place] [address] Orlin Urbina, FACILITY PLANNER, PARTS REMOVER #2 [place] [address] 10/18/2024 2:15 PM CRATING AND MOVING ESTIMATOR [facility]ment [facility] 1 [place] [address] Oswaldo Serrano MD #2 [facility] [address] [place] [address] Discharge Disposition: Discharged to home or Selfcare 11/29/2024 2:30 PM CRATING AND MOVING ESTIMATOR Office Visit [facility] - [place] #2 [place] [address] Oswaldo Serrano MD #2 [facility] [address] [place] [address] 11/30/2024 3:00 PM CRATING AND MOVING ESTIMATOR Office Visit [facility] End[facility] - [place] #[address] [facility] [place] [address] Ok Jorge MD #2 [facility] [address] [place] [address] documented as of this encounter Visit Diagnoses Not on filedocumented in this encounter Additional Health Concerns Assessment Noted Time PHQ-9 Depression Total Score: 2 07/18/20 20 4:26 PM CDT documented as of this encounter Care Teams Conservation Officer Relationship Specialty Start Date End Date Oswaldo Serrano MD #[address] [address] PCP - General Family Medicine 05/19/17 Angel Crowe DPM #[address] [address] Consulting Physician Podiatry 06/16/17 Mora Fritz Behavioral Health Navigator 06/15/18 documented as of this encounter
--- OUTSIDE RECORDS SUMMARY | 2024-10-07 00:25 | XMS_ITS | Encounter Summary ---
Author Organization [facility] Address [address] [facility] [place] [address] Phone Care Team Providers Care Carpet Layer Helper Name Role Phone Osawldo Serrano MD Primary Care Provider [phone] Angel Crowe DPM Unavailable Mora Fritz Unavailable Unavailable Reason for Visit * Reason Onset Date Comments Results 10/13/2021 Covid Encounter Details Date Type Department Care Team (Late st Contact Info) Description 10/13/2021 Telephone [facility] [address] [place] [address] Oswaldo Serrano MD #[address] [address] Results (Covid) Social History Tobacco Use Types Packs/Day Years Used Date Smoking Tobacco: Never Smokeless Tobacco: Never Alcohol Use Standard Drinks/Week Comments No 0 (1 standard drink = 0.6 oz pur e alcohol) PHQ-2 Answer Date Recorded Total Score - Questions 1-9 2 100 06/2020 Education Answer Date Recorded What is [...] have Coronavirus / COVID-19? No / Unsure 10/07/2021 3:45 PM RADIOLOGY ORDERLY documented as of this encounter Miscellaneous Notes * Telephone Encounter - Silvia Rao - 10/13/2021 12:16 PM CST Patients sister calling for results of covid testing. According to ov notes POCT was done and it was negative. OLOGY ORDERLY documented in this encounter Plan of Treatment Upcoming Encounters Date Type Department Care Team (Late st Contact Info) Description 10/08/2024 2:15 PM RADIOLOGY ORDERLY Office Visit [facility] UROLOGY #2 [place] [address] Orlin Urbina, SENIOR BUDGET ANALYST, RATING SPECIALIST #2 [place] [address] 10/18/2024 2:15 PM RADIOLOGY ORDERLY [facility] 1 [place] [address] Oswaldo Serrano MD #[address] [address] Discharge Disposition: Discharged to home or Selfcare 11/29/2024 2:30 PM RADIOLOGY ORDERLY [facility] Visit [facility] #2 [place] [address] Oswaldo Serrano MD #[address] [address] 11/30/2024 3:00 PM RADIOLOGY ORDERLY Office Visit [facility] - Endocrinology [facility] #2 [place] [address] Ok Jorge MD #[address] [address] documented as of this encounter Visit Diagnoses Not on filedocumented in this encounter Additional Health Concerns Assessment Noted Time PHQ-9 Depression Total Score: 2 07/18/20 20 4:26 PM CDT documented as of this encounter Care Teams Carpet Layer Helper Relationship Specialty Start Date End Date Oswaldo Serrano MD #[address] [address] PCP - General Family Medicine 05/19/17 Angel Crowe DPM #[address] [address] Consulting Physician Podiatry 06/16/17 Mora Fritz Behavioral Health Navigator 06/15/18 documented as of this encounter
--- OUTSIDE RECORDS SUMMARY | 2024-10-07 00:25 | XMS_ITS | Encounter Summary ---
Author Organization [facility] Address [address] [place] [address] Phone Care Team Providers Care Skidway Worker Name Role Phone Oswaldo Serrano MD Primary Care Provider [phone] Angel Crowe DPM Unavailable [phone] Mora Fritz Unavailable Unavailable Ok Jorge MD Unavailable Orlin Urbina APRN, WHEELABRATOR OPERATOR Unavailable [phone] Reason for Visit * Reason Comments Medication Refill Encounter Details Date Type Department Care Team (Late st Contact Info) Description 01/26/2022 Refill [facility] [address] [place] [address] Oswaldo Serrano MD [address] [address] Medication Refill Social History Tobacco Use Types [...] encounter Miscellaneous Notes * Telephone Encounter - Coleen Anand RN - 02/10/2022 8:05 AM CDT Medication failed the protocol, provider to review and approve the medication order if appropriate. Requested Prescriptions Pending Prescriptions Disp Refills Myrbetriq 50 MG TABLET SR 24 HR [Pharmacy Med Name: MYRBETRIQ 50MG] 30 Tablet 0 Sig: TAKE ONE TABLET BY MOUTH EVERY DAY Urinary Beta-3 Adrenergic Agonist Protocol Failed - 01/26/2022 4:49 PM Failed - No conflicting beta blockers on med list Passed - Blood pressure on record in past 12 months Passed - Visit with relevant provider in past 12 months or upcoming 90 days Recent Visits Date Type Provider Dept 01/05/22 Office Visit Oswaldo Serrano MD [facility] 10/27/21 Office Visit Orlin Urbina APRN, WHEELABRATOR OPERATOR [facility] [place] 10/07/21 Office Visit Oswaldo Serrano MD [facility] 07/28/21 Telemedicine Oswaldo Serrano MD [facility] 05/14/21 Office Visit Connor Yuan APRN, WHEELABRATOR OPERATOR [facility] 02/27/21 Office Visit Oswaldo Serrano MD [facility] 02/16/21 Office Visit Oswaldo Serrano MD [facility] Showing recent visits within past 365 days and meeting all other requirements Future Appointments No visits were found meeting these conditions. Showing future appointments within next 90 days and meeting all other requirements Passed - GFR greater than or equal to 30 in past 12 months GFR, EST. NONAFRICAN Date Value Ref Range Status 01/21/2022 >60 >=60 Final * Telephone Encounter - Sylvia Cain RMA - 01/27/2022 1:13 PM CDT Mychart message sent * Telephone Encounter - Zainab Roblero RN - 01/27/2022 8:11 AM CDT Refused 01/26/22. Pt needs appt documented in this encounter Plan of Treatment Upcoming Encounters Date Type Department Care Team (Late st Contact Info) Description 10/08/2024 2:15 PM AUTOCAD TECHNICIAN Office Visit [facility] #2 [place] [phone] Orlin Urbina, CITY DISPATCHER, WHEELABRATOR OPERATOR #2 [place] [address] 10/18/2024 2:15 PM AUTOCAD TECHNICIAN [facility]ment [facility] 1 [place] [address] Oswaldo Serrano MD #[address] [address] Discharge Disposition: Discharged to home or Selfcare 11/29/2024 2:30 PM AUTOCAD TECHNICIAN [facility] #2 [place] [address] Oswaldo Serrano MD #[address] [address] 11/30/2024 3:00 PM AUTOCAD TECHNICIAN Office Visit [facility] #2 [place] [address] Ok Jorge MD #[address] [address] documented as of this encounter Visit Diagnoses Diagnosis Nocturnal enuresis OAB (overactive bladder) Hypertonicity of bladder documented in this encounter Additional Health Concerns Assessment Noted Time PHQ-9 Depression Total Score: 2 07/18/20 20 4:26 PM CDT documented as of this encounter Care Teams Skidway Worker Relationship Specialty Start Date End Date Oswaldo Serrano MD #[address] [address] PCP - General Family Medicine 05/19/17 Angel Crowe DPM #[address] [address] Consulting Physician Podiatry 06/16/17 Mora Fritz CA Behavioral Health Navigator 06/15/18 kO Jorge MD #[address] [address] Consulting Physician Endocrinology 05/12/22 Orlin Urbina APRN, WHEELABRATOR OPERATOR #2 [place] [address] Nurse Practitioner Advanced Practice Nurse 11/09/22 documented as of this encounter
--- OUTSIDE RECORDS SUMMARY | 2024-10-07 00:25 | XMS_ITS | Encounter Summary ---
Author Organization [facility] Address [address] [place] [address] Phone Care Team Providers Care Loader Helper Sorting Yard Name Role Phone Oswaldo Serrano MD Primary Care Provider [phone] Angel Crowe DPM Unavailable Mora Fritz Unavailable Unavailable Ok Jorge MD Unavailable Orlin Urbina APRN, MOTORCYLES FINAL INSPECTOR Unavailable Reason for Visit * Reason Comments Medication Refill Encounter Details Date Type Department Care Team (Late st Contact Info) Description 01/21/2022 Refill [facility] #2 [place] [address] Orlin Urbina APRN, MOTORCYLES FINAL INSPECTOR #2 [place] [address] Medication Refill Social History Tobacco Use Types [...] Miscellaneous Notes * Telephone Encounter - Ynes Gaxiola RN - 01/22/2022 9:59 AM CDT Pharmacy requesting refill of: Requested Prescriptions Pending Prescriptions Disp Refills ??? Myrbetriq 50 MG TABLET SR 24 HR [Pharmacy Med Name: MYRBETRIQ 50MG] 30 Tablet 0 Sig: TAKE ONE TABLET BY MOUTH EVERY DAY Last fill: 12/11/2021 by Home Urbina APRN Patients last OV with GI: 10/27/2021 Next Office Visit with GI: None scheduled. myrbetriq order pended, pleaser review. documented in this encounter Plan of Treatment Upcoming Encounters Date Type Department Care Team (Late st Contact Info) Description 10/08/2024 2:15 PM REPORTING PROCESS CONSULTANT Office Visit [facility] #2 [place] [address] Orlin Urbina APRN, MOTORCYLES FINAL INSPECTOR #2 [place] [address] 10/18/2024 2:15 PM REPORTING PROCESS CONSULTANT Appointment [facility] 1 [place] [address] Oswaldo Serrano MD #[address] [address] Discharge Disposition: Discharged to home or Selfcare 11/29/2024 2:30 PM REPORTING PROCESS CONSULTANT Office [facility] - Family Medicine [facility] #2 [place] [address] Oswaldo Serrano MD #[address] [address] 11/30/2024 3:00 PM REPORTING PROCESS CONSULTANT Office Visit [facility] End[facility] #2 [place] [address] Ok Jorge MD #[address] [address] documented as of this encounter Visit Diagnoses Diagnosis Nocturnal enuresis OAB (overactive bladder) Hypertonicity of bladder documented in this encounter Additional Health Concerns Assessment Noted Time PHQ-9 Depression Total Score: 2 07/18/20 20 4:26 PM CDT documented as of this encounter Care Teams Loader Helper Sorting Yard Relationship Specialty Start Date End Date Oswaldo Serrano MD #[address] [address] PCP - General Family Medicine 05/19/17 Angel Crowe DPM #[address] [address] Consulting Physician Podiatry 06/16/17 Mora Fritz [place] Behavioral Health Navigator 06/15/18 Ok Jorge MD #[address] [address] [place] [address] Consulting Physician Endocrinology 05/12/22 Orlin Urbina APRN, MOTORCYLES FINAL INSPECTOR #[address] [place] [address] Nurse Practitioner Advanced Practice Nurse 11/09/22 documented as of this encounter
--- OUTSIDE RECORDS SUMMARY | 2024-10-07 00:25 | XMS_ITS | Encounter Summary ---
Author Organization [email or web address] Care Team Providers Care Janitor Supervisor Name Role Phone Oswaldo Serrano MD Primary Care Provider [phone] Angel Crowe DPM Unavailable [phone] Mora Fritz Unavailable Unavailable Encounter Details Date Type Department Care Team (Latest Contact Info) Description 01/05/2022 Travel Social History Tobacco Use Types Packs/Day [...] suspected to have Coronavirus/COVID-19? No / Unsure 01/05/2022 2:33 PM CDT documented as of this encounter Plan of Treatment Upcoming Encounters Date Type Department Care Team (Late st Contact Info) Description 10/08/2024 2:15 PM ECONOMIC ANALYST Office Visit [facility] #2 [place] [address] Orlin Urbina, MANAGER MOLECULAR, METER SHOP SUPERVISOR #2 [place] [address] 10/18/2024 2:15 PM ECONOMIC ANALYST [facility] 1 [place] [address] Oswaldo Serrano MD #2 [facility] [address] [place] [address] Discharge Disposition: Discharged to home or Selfcare 11/29/2024 2:30 PM ECONOMIC ANALYST [facility] [place] #2 [place] [address] Oswaldo Serrano MD #2 [facility] [address] [place] [address] 11/30/2024 3:00 PM ECONOMIC ANALYST Office Visit [facility] [place] #2 [place] [address] Ok Jorge MD #2 [facility] [address] [place] [address] documented as of this encounter Visit Diagnoses Not on filedocumented in this encounter Additional Health Concerns Assessment Noted Time PHQ-9 Depression Total Score: 2 07/18/20 20 4:26 PM CDT documented as of this encounter Care Teams Janitor Supervisor Relationship Specialty Start Date End Date Oswaldo Serrano MD #[address] [address] PCP - General Family Medicine 05/19/17 Angel Crowe DPM #[address] [address] Consulting Physician Podiatry 06/16/17 Mora Fritz Behavioral Health Navigator 06/15/18 documented as of this encounter
--- OUTSIDE RECORDS SUMMARY | 2024-10-07 00:25 | XMS_ITS | Encounter Summary ---
Author Organization [facility] Address [address] [place] [address] Phone Care Team Providers Care Precision Thread Grinder Operator Name Role Phone Oswaldo Serrano MD Primary Care Provider [phone] Angel Crowe DPM Unavailable Mora Fritz Unavailable Unavailable Reason for Visit * Reason Onset Date Comments med question 11/02/2021 side effects Encounter Details Date Type Department Care Team (Late st Contact Info) Description 11/02/2021 Telephone [facility] #2 [place] [address] Orlin Urbina, SUPERVISOR SHUTTLE VENEERING, PHOTOGRAPHY AND PRINTS CURATOR #2 [place] [address] med question (side effects) Social History Tobacco Use Types Packs/Day Years [...] COVID-19? No / Unsure 10/27/2021 3:19 PM SEED SALES MANAGER documented as of this encounter Miscellaneous Notes * Telephone Encounter - Dariel Dowling RMA - 11/03/2021 3:24 PM CST Spoke w/ pt's sister Dilia and states that pt is doing well, sx have improve. Also gave her the food diet to help with problem. Pt agreed and will call if any other concerns SALES MANAGER * Telephone Encounter - Orlin Urbina APRN, CNP - 11/03/2021 7:55 AM SEED SALES MANAGER Diarrhea is not a common side effect of Myrbetriq, however, patients can experience constipation. Diarrhea is likely from something else. She can try BRAT (banana's, rice, apples, and toast) diet to help with diarrhea or I recommend calling PCP if they are not able to get it under control. Thanks! SALES MANAGER * Telephone Encounter - Dariel Dowling RMA - 11/02/2021 4:20 PM CST Pt's sister called office regarding the pt, it seems like she's been having Diarrhea since Tuesday and waould want to know if the Myrbetriq might be causing this? Pt started med on Tuesday of last week.Please advise. SALES MANAGER documented in this encounter Plan of Treatment Upcoming Encounters Date Type Department Care Team (Late st Contact Info) Description 10/08/2024 2:15 PM SEED SALES MANAGER Office Visit [facility] #2 [place] [address] Orlin Urbina APRN, PHOTOGRAPHY AND PRINTS CURATOR #2 [place] [address] 10/18/2024 2:15 PM SEED SALES MANAGER [facility] 1 [place] [address] Oswaldo Serrano MD #2 [facility] [address] [place] [address] Discharge Disposition: Discharged to home or Selfcare 11/29/2024 2:30 PM SEED SALES MANAGER [facility] Visit [facility] #2 [place] [address] Oswaldo Serrano MD #2 [facility] [address] [place] [address] 11/30/2024 3:00 PM SEED SALES MANAGER [facility] Visit [facility] - [place] #2 [place] [address] Ok Jorge MD #2 [facility] [address] [place] [address] documented as of this encounter Visit Diagnoses Not on filedocumented in this encounter Additional Health Concerns Assessment Noted Time PHQ-9 Depression Total Score: 2 07/18/20 20 4:26 PM CDT documented as of this encounter Care Teams Precision Thread Grinder Operator Relationship Specialty Start Date End Date Oswaldo Serrano MD #[address] [address] PCP - General Family Medicine 05/19/17 Angel Crowe DPM #[address] [address] Consulting Physician Podiatry 06/16/17 Mora Fritz Behavioral Health Navigator 06/15/18 documented as of this encounter
--- OUTSIDE RECORDS SUMMARY | 2024-10-07 00:25 | XMS_ITS | Encounter Summary ---
Author Organization [facility] Address [address] [place] [address] Phone Care Team Providers Care Railroad Passenger Agent Name Role Phone Oswaldo Serrano MD Primary Care Provider [phone] Angel Crowe DPM Unavailable [phone] Mora Fritz Unavailable Unavailable Reason for Referral * Radiology Services (Routine) - Closed Specialty Diagnoses / Procedures Referred By Praful ferro Referred To Contact Radiology Diagnoses Abnormal mammogram Procedures SHABANA DIAG LEFT DIGITAL W CAD Oswaldo Serrano MD #[address] [address] Phone: tel: fax: Referral ID Status Reason Start Date Expiration Date Visits Re quested Visits Authorized [id number] Closed 10/28/2021 1 1 Reason for Visit * Radiology Services (Routine) - Closed Specialty Diagnoses / Procedures Referred By Contac t Referred To Contact Radiology Diagnoses Abnormal mammogram Procedures SHABANA DIAG LEFT DIGITAL W CAD Oswaldo Serrano MD #[address] [address] Phone: tel: fax: Referral ID Status Reason Start Date Expiration Date Visits Re quested Visits Authorized [id number] Closed 10/28/2021 1 1 Encounter Details Date Type Department Care Team (Latest Contact Info) Description 01/29/2022 1:57 PM CDT - 01/29/2022 11:59 PM CDT Hospital Encounter [facility] M[facility] 1 [place] [address] Oswaldo Serrano MD #[address] [address] Discharge Disposition: Discharged to home or Selfcare [...] AM CDT documented as of this encounter Medications [...] needed for Cough. 1 g 10/07/2021 4 albuterol 108 (90 Base) MCG/ACT Aerosol Solution 02/14/2021 08/26/20 2 2 Blood Pressure Monitoring (Blood Pressure Cuff) MiscIndications:E ssential hypertension Dispense battery-powered arm cuff (Dx: I10) 1 Each 2020 2 carvedilol (COREG) 25 MG Tablet 25 mg 2 times daily. 05/06/2017 4 Continuous Blood Gluc Brass Plater (Dexcom G6 Brass Plater) Device 12/03/2021 08/26/20 2 2 Continuous Blood Gluc Sensor (Dexcom G6 Sensor) Misc 12/03/2021 2 docusate sodium (COLACE) 100 MG Capsule TAKE ONE CAPSULE BY MOUTH TWICE DAILY 60 Capsule 01/18/2022 2 escitalopram (LEXAPRO) 10 MG Tablet TAKE ONE TABLET BY MOUTH EVERY DAY 90 Tablet 2 09/12/2021 2 furosemide (LASIX) 40 MG TabletIndications :Chronic congestive heart failure, unspecified heart failure type (HCC) TAKE ONE TABLET BY MOUTH EVERY DAY 90 Tablet 2 01/28/2022 3 Glucose Blood Strip Test blood glucose 4x daily. E11.9, insulin dependent 400 Strip 3 03/12/2021 2 guaiFENesin-codei ne (Cheratussin AC) 100-10 MG/5ML SyrupIndications: Acute bronchitis, unspecified organism Take 5 mL by mouth every 4 hours as needed for Cough. 180 mL 05/14/2021 2 insulin aspart (NovoLOG FlexPen) 100 UNIT/ML Solution Pen-injector INJECT 16 UNITS AT BREAKFAST, 16 UNITS AT LUNCH AND 14 UNITS AT DINNER -- ISF OF 1:30 IF GREATER THAN 140MG/DL UP TO 70 UNITS PER DAY 75 mL 1 12/10/2021 2 insulin degludec (Tresiba FlexTouch) 100 UNIT/ML Solution Pen-injector Tresiba FlexTouch U-100 100 unit/mL (3 mL) insulin pen 10/10/1969 3 insulin degludec (Tresiba FlexTouch) 100 UNIT/ML Solution Pen-injector 17 Units by Subcutaneous route every morning. 15 mL 1 09/30/2021 2 insulin glargine (Lantus) 100 UNIT/ML Solution by Subcutaneous route every evening. 2 Insulin Pen Needle (PEN NEEDLES 31GX5/16 ) 31G X 8 MM Misc Use to inject insulin 4x daily. 400 Each 3 12/07/2021 3 levothyroxine (SYNTHROID) 50 MCG Tablet TAKE ONE TABLET BY MOUTH EVERY MORNING 90 Tablet 3 12/10/2020 2 lisinopril (PRINIVIL, ZESTRIL) 5 MG TabletIndications :Orthostatic hypotension TAKE ONE TABLET BY MOUTH EVERY DAY 90 Tablet 2 08/06/2021 2 Myrbetriq 50 MG TABLET SR 24 HRIndications:Noc turnal enuresis,OAB (overactive bladder) TAKE 1 TABLET BY MOUTH EVERY DAY 30 Tablet 12/11/2021 2 nortriptyline (PAMELOR) 10 MG Capsule TAKE ONE CAPSULE BY MOUTH ONE TIME DAILY IN THE EVENING 90 Capsule 2 09/12/2021 2 omeprazole (PriLOSEC) 20 MG CAPSULE DELAYED RELEASE TAKE ONE CAPSULE BY MOUTH EVERY DAY 90 Capsule 2 01/22/2022 3 potassium chloride SA (KLORCON M) 20 MEQ Tablet Controlled ReleaseIndication s:Chronic congestive heart failure, unspecified heart failure type (HCC) Take 1 Tablet by mouth daily. 90 Tablet 3 01/25/2022 3 potassium chloride SA (KLORCON M) 20 MEQ Tablet Controlled Release potassium chloride 20 mEq tablet,ER particles/crystal s 10/10/1969 2 rivaroxaban (Xarelto) 20 MG Tablet Take 20 mg by mouth daily (with dinner). Take with food. 4 documented as of this encounter Plan of Treatment Upcoming Encounters Date Type Department Care Team (Late st Contact Info) Description 10/08/2024 2:15 PM TRAFFIC ANALYST Office Visit [facility] UROLOGY #2 [place] [address] Orlin Urbina APRN, DERMATOLOGY TECHNICIAN #2 [place] [address] 10/18/2024 2:15 PM TRAFFIC ANALYST [facility] 1 [place] [phone] Oswaldo Serrano MD #2 [facility] [address] [place] [address] Discharge Disposition: Discharged to home or Selfcare 11/29/2024 2:30 PM TRAFFIC ANALYST [facility] - [place] #2 [place] [address] Oswaldo Serrano MD #2 [facility] [address] [place] [address] 11/30/2024 3:00 PM TRAFFIC ANALYST [facility] Visit [facility] - [place] #2 [place] [address] Ok Jorge MD #2 [facility] [address] [place] [address] documented as of this encounter Procedures Procedure Name Priority Date/Time Associated Diagnosis Comments SHABANA DIAG LEFT DIGITAL W CAD Routine 01/29/2022 2:45 PM CDT Abnormal mammogram documented in this encounter Results * SHABANA DIAG LEFT DIGITAL W CAD (01/29/2022 2:45 PM CDT) Anatomical Region Laterality Modality breast Left Mammography 01/29/2022 2:03 PM CDT Narrative 01/30/2022 7:31 AM CDT - SHABANA DIAG LEFT DIGITAL W CAD UNILATERAL LEFT DIGITAL DIAGNOSTIC MAMMOGRAM WITH CAD WITH MEDIOLATERAL CRANIOCAUDAL MAGNIFICATION: 01/29/2022 The study was acquired using digital technology and interpreted from soft copy. Current study was also evaluated with ICAD version 7.2. ?? CLINICAL: Patient returns for magnifcation views of calcifications in the left breast. ?? COMPARISONS: Comparison is made to exams dated: ??10/27/2021, 10/17/2018 [facility], and 07/07/2015 [facility]. ?? BREAST TISSUE:There are scattered fibroglandular densities in left breast. ?? FINDINGS: ??Magnification cc, magnification 90 degree in full field 90 degree images of the left breast were performed. ??Clustered microcalcifications are identified. ??Some calcifications appear lucent centrally, and thers have a smooth contour. ??These are probably benign. IMPRESSION: BI-RAD 3 PROBABLY BENIGN ??Clustered microcalcifications in the left breast are probably benign. A follow-up mammogram in 6 months is recommended to demonstrate stability. ?? The results and recommendations were discussed with the patient. Electronically signed by: Patricia Dickson M.D. ? ab/:01/29/2022 14:42:58 ?? Record Cutter(s): Alicia ??RT Osorio(R)(M), [facility] sent: Birad 3 Followup ?? Reading location: [place] BI-RADS: 3 Probably benign Procedure Note Patricia Dickson MD - 01/30/2022 - SHABANA DIAG LEFT DIGITAL W CAD UNILATERAL LEFT DIGITAL DIAGNOSTIC MAMMOGRAM WITH CAD WITH MEDIOLATERAL CRANIOCAUDAL MAGNIFICATION: 01/29/2022 The study was acquired using digital technology and interpreted from soft copy. Current study was also evaluated with ICAD version 7.2. CLINICAL: Patient returns for magnifcation views of calcifications in the left breast. COMPARISONS: Comparison is made to exams dated: 10/27/2021, 10/17/2018 [facility], and 07/07/2015 [facility]. BREAST TISSUE:There are scattered fibroglandular densities in left breast. FINDINGS: Magnification cc, magnification 90 degree in full field 90 degree images of the left breast were performed. Clustered microcalcifications are identified. Some calcifications appear lucent centrally, and thers have a smooth contour. These are probably benign. IMPRESSION: BI-RAD 3 PROBABLY BENIGN Clustered microcalcifications in the left breast are probably benign. A follow-up mammogram in 6 months is recommended to demonstrate stability. The results and recommendations were discussed with the patient. Electronically signed by: Patricia Dickson M.D. ab/:01/29/2022 14:42:58 Record Cutter(s): RT Lauri(R)(M), [facility] letter sent: Jamirad 3 Followup Reading location: [place] BI-RADS: 3 Probably benign Oswaldo Serrano MD IMG MAMMO ORDERABLES Final Result documented in this encounter Visit Diagnoses Diagnosis Abnormal mammogram Abnormal mammogram, unspecified documented in this encounter Additional Health Concerns Assessment Noted Time PHQ-9 Depression Total Score: 2 07/18/20 20 4:26 PM CDT documented as of this encounter Care Teams Railroad Passenger Agent Relationship Specialty Start Date End Date Oswaldo Serrano MD #[address] [address] PCP - General Family Medicine 05/19/17 Angel Crowe DPM #[address] [address] Consulting Physician Podiatry 06/16/17 Mora Fritz Behavioral Health Navigator 06/15/18 documented as of this encounter
--- OUTSIDE RECORDS SUMMARY | 2024-10-07 00:25 | XMS_ITS | Encounter Summary ---
Author Organization [employer] Care Team Providers Care Food Quality Technician Name Role Phone Oswaldo Serrano MD Primary Care Provider [phone] Angel Crowe DPM Unavailable [phone] Mora Fritz Unavailable Unavailable Encounter Details Date Type Department Care Team (Latest Contact Info) Description 10/20/2021 Travel Social History Tobacco Use Types Packs/Day [...] have Coronavirus / COVID-19? No / Unsure 10/20/2021 4:26 PM OVEN DUMPER documented as of this encounter Plan of Treatment Upcoming Encounters Date Type Department Care Team (Late st Contact Info) Description 10/08/2024 2:15 PM OVEN DUMPER Office Visit [facility]YS[facility]IAN GROUP UROLOGY #2 [place] [address] Orlin Urbina, ROTARY DRUM DYER, SECURITY CHECKER #2 [place] [address] 10/18/2024 2:15 PM OVEN DUMPER [facility] 1 [place] [phone] Oswaldo Serrano MD #[address] [facility] [address] [place] [address] Discharge Disposition: Discharged to home or Selfcare 11/29/2024 2:30 PM OVEN DUMPER [facility] - [place] #2 [place] [address] Oswaldo Serrano MD #[address] [facility] [address] [place] [address] 11/30/2024 3:00 PM OVEN DUMPER Office Visit [facility] - Endocrinology - [place] #2 [place] [address] Ok Jorge MD #[address] [facility] [address] [place] [address] documented as of this encounter Visit Diagnoses Not on filedocumented in this encounter Additional Health Concerns Assessment Noted Time PHQ-9 Depression Total Score: 2 07/18/20 20 4:26 PM CDT documented as of this encounter Care Teams Food Quality Technician Relationship Specialty Start Date End Date Oswaldo Serrano MD #[address] [address] PCP - General Family Medicine 05/19/17 Angel Crowe DPM #[address] [address] Consulting Physician Podiatry 06/16/17 Mora Fritz Behavioral Health Navigator 06/15/18 documented as of this encounter
--- OUTSIDE RECORDS SUMMARY | 2024-10-07 00:25 | XMS_ITS | Encounter Summary ---
Author Organization [facility] Address [address] [place] [address] Phone Care Team Providers Care Hydrodynamics Teacher Name Role Phone Oswaldo Serrano MD Primary Care Provider Angel Crowe DPM Unavailable [phone] Mora Fritz Unavailable Unavailable Encounter Details Date Type Department Care Team (Late st Contact Info) Description 01/13/2022 Telephone [facility] #2 [place] [address] Oswaldo Serrano MD #[address] [address] Social History Tobacco Use Types Packs/Day Years [...] Telephone Encounter - Oswaldo Serrano MD - 01/14/2022 9:52 AM CDT DONE. documented in this encounter Plan of Treatment Upcoming Encounters Date Type Department Care Team (Late st Contact Info) Description 10/08/2024 2:15 PM MEDICAL TECH Office Visit [facility]YS[facility]IAN GROUP UROLOGY #2 [place] [address] Orlin Urbina APRN, IP ATTORNEY #2 [place] [address] 10/18/2024 2:15 PM MEDICAL TECH Appointment [facility] Mammography 1 [place] [address] Oswaldo Serrano MD #[address] [address] Discharge Disposition: Discharged to home or Selfcare 11/29/2024 2:30 PM MEDICAL TECH Office Visit [facility] #2 [place] [address] Oswaldo Serrano MD #[address] [address] 11/30/2024 3:00 PM MEDICAL TECH Office Visit [facility] - Endocr[facility]ology - [place] #2 [place] [address] Ok Jorge MD [facility] [address] [address] documented as of this encounter Visit Diagnoses Not on filedocumented in this encounter Additional Health Concerns Assessment Noted Time PHQ-9 Depression Total Score: 2 07/18/20 20 4:26 PM CDT documented as of this encounter Care Teams Hydrodynamics Teacher Relationship Specialty Start Date End Date Oswaldo Serrano MD #[address] [address] PCP - General Family Medicine 05/19/17 Angel Crowe DPM [facility] [address] Consulting Physician Podiatry 06/16/17 Mora Fritz Behavioral Health Navigator 06/15/18 documented as of this encounter
--- OUTSIDE RECORDS SUMMARY | 2024-10-07 00:25 | XMS_ITS | Encounter Summary ---
Author Organization [facility] Address [address] [place] [address] Phone Care Team Providers Care Hands Hanger Name Role Phone Oswaldo Serrano MD Primary Care Provider [phone] Angel Crowe DPCiara Unavailable Mora Fritz Unavailable Unavailable Ok Jorge MD Unavailable Orlin Urbina APRN, BROACH GRINDER Unavailable [phone] Reason for Visit * Reason Comments Medication Refill Encounter Details Date Type Department Care Team (Late st Contact Info) Description 12/16/2021 Refill [facility] - [place] #2 [place] [address] Oswaldo Serrano MD #[address] [address] Medication Refill Social History Tobacco Use Types [...] COVID-19? No / Unsure 12/10/2021 3:06 PM HEALTH AND SAFETY TRAINER documented as of this encounter Miscellaneous Notes * Telephone Encounter - Mica Morales RN - 12/17/2021 12:09 PM CST Medication failed the protocol, provider to review and approve the medication order if appropriate. Requested Prescriptions Pending Prescriptions Disp Refills DOK 100 MG Capsule [Pharmacy Med Name: *DOK 100MG] 60 Capsule 0 Sig: TAKE ONE CAPSULE BY MOUTH TWICE DAILY Laxatives Protocol Failed - 12/16/2021 3:54 PM Failed - Up to date with colon cancer screening Health Maintenance Passed - Visit with relevant provider in past 12 months or upcoming 90 days Recent Visits Date Type Provider Dept 10/07/21 Office Visit Oswaldo Serrano MD [facility] 07/28/21 Telemedicine Oswaldo Serrano MD [facility] 05/14/21 Office Visit Connor Yuan APRN, [facility] 02/27/21 Office Visit Oswaldo Serrano MD [facility] 02/16/21 Office Visit Oswaldo Serrano MD [facility] 01/14/21 Office Visit Connor Yuan APRN, [facility] [place] 12/19/20 Office Visit Oswaldo Serrano MD [facility] 12/18/20 Telemedicine Oswaldo Serrano MD [facility] Showing recent visits within past 365 days and meeting all other requirements Future Appointments Date Type Provider Dept 01/05/22 Appointment Oswaldo Serrano MD [facility] Showing future appointments within next 90 days and meeting all other requirements TH AND SAFETY TRAINER documented in this encounter Plan of Treatment Upcoming Encounters Date Type Department Care Team (Late st Contact Info) Description 10/08/2024 2:15 PM HEALTH AND SAFETY TRAINER Office [facility] UROLOGY #2 [place] [address] Orlin Urbina PLAY THERAPIST, BROACH GRINDER #2 [place] [address] 10/18/2024 2:15 PM HEALTH AND SAFETY TRAINER [facility]ment [facility] 1 [place] [address] Oswaldo Serrano MD #[address] [address] Discharge Disposition: Discharged to home or Selfcare 11/29/2024 2:30 PM HEALTH AND SAFETY TRAINER [facility] Visit [facility] - [place] #2 [place] [address] Oswaldo Serrano MD #[address] [address] 11/30/2024 3:00 PM HEALTH AND SAFETY TRAINER Office Visit [facility] - Endocrinology - [place] #2 [facility] [place] [address] Ok Jorge MD #2 [facility] [address] [place] [address] documented as of this encounter Visit Diagnoses Not on filedocumented in this encounter Additional Health Concerns Assessment Noted Time PHQ-9 Depression Total Score: 2 07/18/20 20 4:26 PM CDT documented as of this encounter Care Teams Hands Hanger Relationship Specialty Start Date End Date Oswaldo Serrano MD #2 [facility] [address] [place] [address] PCP - General Family Medicine 05/19/17 Angel Crowe DPM #2 [facility] [address] [place] [address] Consulting Physician Podiatry 06/16/17 Mora Fritz Behavioral Health Navigator 06/15/18 Ok Jorge MD #2 [facility] [address] [place] [address] Consulting Physician Endocrinology 05/12/22 Orlin Urbina APRN, BROACH GRINDER #2 [place] [address] Nurse Practitioner Advanced Practice Nurse 11/09/22 documented as of this encounter
--- OUTSIDE RECORDS SUMMARY | 2024-10-07 00:25 | XMS_ITS | Encounter Summary ---
Author Organization [employer] Care Team Providers Care Distribution Agent Name Role Phone Oswaldo Serrano MD Primary Care Provider [phone] Angel Crowe DPM Unavailable [phone] Mora Fritz Unavailable Unavailable Encounter Details Date Type Department Care Team (Latest Contact Info) Description 01/29/2022 Travel Social History Tobacco Use Types Packs/Day [...] AM CDT documented as of this encounter Plan of Treatment Upcoming Encounters Date Type Department Care Team (Late st Contact Info) Description 10/08/2024 2:15 PM RELAY WORKER Office Visit [facility]YSICIAN GROUP UROLOGY #2 [facility] [place] [address] Orlin Urbina, SET UP MECHANIC COATING MACHINES, CARDIOLOGY CONSULTANT #2 [place] [address] 10/18/2024 2:15 PM RELAY WORKER [facility] 1 [place] [address] Oswaldo Serrano MD #2 [facility] [address] [place] [address] Discharge Disposition: Discharged to home or Selfcare 11/29/2024 2:30 PM RELAY WORKER [facility] - [place] #2 [place] [address] Oswaldo Serrano MD #2 [facility] [address] [place] [address] 11/30/2024 3:00 PM RELAY WORKER Office Visit [facility] - [place] #2 [place] [address] Ok Jorge MD #2 [facility] [address] [place] [address] documented as of this encounter Visit Diagnoses Not on filedocumented in this encounter Additional Health Concerns Assessment Noted Time PHQ-9 Depression Total Score: 2 07/18/20 4:26 PM CDT documented as of this encounter Care Teams Distribution Agent Relationship Specialty Start Date End Date Oswaldo Serrano MD #[address] [address] PCP - General Family Medicine 05/19/17 Angel Crowe DPM #[address] [address] Consulting Physician Podiatry 06/16/17 Mora Fritz Behavioral Health Navigator 06/15/18 documented as of this encounter
--- OUTSIDE RECORDS SUMMARY | 2024-10-07 00:25 | XMS_ITS | Encounter Summary ---
Author Organization [facility] Address [address] [place] [address] Phone Care Team Providers Care Technology Strategist Name Role Phone Oswaldo Serrano MD Primary Care Provider [phone] Angel Crowe DPCiara Unavailable Mora Fritz Unavailable Unavailable Ok Jorge MD Unavailable Orlin Urbina APRN, SR. MERCHANDISE PLANNER Unavailable + [phone] Reason for Visit * Reason Comments Medication Refill Encounter Details Date Type Department Care Team (Late st Contact Info) Description 10/14/2021 Refill [facility] - [place] #2 [place] [address] Oswaldo Serrano MD #[address] [address] Medication Refill Social History Tobacco Use Types [...] COVID-19? No / Unsure 10/07/2021 3:45 PM CAKE WRAPPER documented as of this encounter Miscellaneous Notes * Telephone Encounter - Mica Morales RN - 10/15/2021 9:24 AM CST Medication failed the protocol, provider to review and approve the medication order if appropriate. Requested Prescriptions Pending Prescriptions Disp Refills DOK 100 MG Capsule [Pharmacy Med Name: DOK 100MG] 60 Capsule 1 Sig: TAKE ONE CAPSULE BY MOUTH TWICE DAILY Laxatives Protocol Failed - 10/14/2021 4:12 PM Failed - Up to date with colon cancer screening Health Maintenance Passed - Visit with relevant provider in past 12 months or upcoming 90 days Recent Visits Date Type Provider Dept 10/07/21 Office Visit Oswaldo Serrano MD [facility] 07/28/21 Telemedicine Oswaldo Serrano MD [facility] 05/14/21 Office Visit Connor Yuan APRN, SR. MERCHANDISE PLANNER [facility] 02/27/21 Office Visit Oswaldo Serrano MD [facility] 02/16/21 Office Visit Oswaldo Serrano MD [facility] 01/14/21 Office Visit Connor Yuan APRN, SR. MERCHANDISE PLANNER [facility] 12/19/20 Office Visit Oswaldo Serrano MD [facility] 12/18/20 Telemedicine Oswaldo Serrano MD [facility] 12/08/20 Telemedicine Oswaldo Serrano MD [facility] 11/07/20 Telemedicine [facility] Show[facility] recent visits within past 365 days and meeting all other requirements Future Appointments Date Type Provider Dept 01/05/22 Appointment Oswaldo Serrano MD [facility] Showing future appointments within next 90 days and meeting all other requirements WRAPPER documented in this encounter Plan of Treatment Upcoming Encounters Date Type Department Care Team (Late st Contact Info) Description 10/08/2024 2:15 PM CAKE WRAPPER Office Visit [facility] PHYSICIAN GROUP UROLOGY #2 [place] [address] Orlin Urbina APRN, SR. MERCHANDISE PLANNER #2 [place] [address] 10/18/2024 2:15 PM CAKE WRAPPER [facility] 1 [place] [address] Oswaldo Serrano MD #[address] [address] Discharge Disposition: Discharged to home or Selfcare 11/29/2024 2:30 PM CAKE WRAPPER [facility] - [place] #2 [place] [address] Oswaldo Serrano MD #[address] [address] 11/30/2024 3:00 PM CAKE WRAPPER Office Visit [facility] - Endocrinology - [place] #2 [place] [address] Ok Jorge MD #[address] [address] documented as of this encounter Visit Diagnoses Not on filedocumented in this encounter Additional Health Concerns Assessment Noted Time PHQ-9 Depression Total Score: 2 07/18/20 20 4:26 PM CDT documented as of this encounter Care Teams Technology Strategist Relationship Specialty Start Date End Date Oswaldo Serrano MD #[address] [address] PCP - General Family Medicine 05/19/17 Angel Crowe DPM #[address] [address] Consulting Physician Podiatry 06/16/17 Mora Fritz [facility] Behavioral Health Navigator 06/15/18 Ok Jorge MD #[address] [address] Consulting Physician Endocrinology 05/12/22 Orlin Urbina APRN, SR. MERCHANDISE PLANNER #2 [place] [address] Nurse Practitioner Advanced Practice Nurse 11/09/22 documented as of this encounter
--- OUTSIDE RECORDS SUMMARY | 2024-10-07 00:25 | XMS_ITS | Encounter Summary ---
Author Organization [facility] Address [address] [place] [address] Phone Care Team Providers Care Drawing Operator Name Role Phone Oswaldo Serrano MD Primary Care Provider Angel Crowe DPM Unavailable Mora Fritz Unavailable Unavailable Reason for Visit * Reason Comments Medication Refill Encounter Details Date Type Department Care Team (Late st Contact Info) Description 12/07/2021 Refill [facility] - [place] #2 [place] [address] Ok Maldonado MD #[address] [address] Medication Refill Social History Tobacco [...] as of this encounter Miscellaneous Notes * Addendum Note - Ynes Sanders RN - 12/07/2021 2:36 PM CSTAddended by: YNES SANDERS. on: 12/07/2021 02:36 PM Modules accepted: Orders D TURNER * Telephone Encounter - Ynes Sanders RN - 12/07/2021 2:35 PM BOARD TURNER Requested Prescriptions Pending Prescriptions Disp Refills ??? Insulin Pen Needle (PEN NEEDLES 31GX5/16 ) 31G X 8 MM Misc 400 Each 3 Sig: Use to inject insulin 4x daily. Refused Prescriptions Disp Refills ??? Insulin Syringe-Needle U-100 (Sure Comfort Insulin Syringe) 31G X 5/16 0.5 ML Misc 100 Each 7 Sig: USE 4 TIMES DAILY Refused By: OK MALDONADO Reason for Refusal: Other She is using pens/ D TURNER * Telephone Encounter - Ok Maldonado MD - 12/07/2021 11:14 AM CST The patient is supposed to use Tresiba pen and NovoLog pen. Please check wether she needs pen needles or insulin syringes D TURNER * Telephone Encounter - Ynes Sanders RN - 12/07/2021 10:58 AM BOARD TURNER Requested Prescriptions Pending Prescriptions Disp Refills ??? Insulin Syringe-Needle U-100 (Sure Comfort Insulin Syringe) 31G X 5/16 0.5 ML Misc [Pharmacy Med Name: JODY MACKAY SYR 1/2CC 31G 31GX0.31] 100 Each 7 Sig: USE 4 TIMES DAILY Next appt: 12/10/2021 D TURNER documented in this encounter Plan of Treatment Upcoming Encounters Date Type Department Care Team (Late st Contact Info) Description 10/08/2024 2:15 PM BOARD TURNER Office Visit [facility] PHYSICIAN GROUP UROLOGY #2 [place] [address] Orlin Urbina, TACKING MACHINE OPERATOR, PRACTICE MANAGEMENT CONSULTANT #2 [place] [address] 10/18/2024 2:15 PM BOARD TURNER [facility] 1 [place] [address] Oswaldo Serrano MD #[address] [address] Discharge Disposition: Discharged to home or Selfcare 11/29/2024 2:30 PM BOARD TURNER [facility] Medicine [facility] #2 [place] [address] Oswaldo Serrano MD #[address] [address] 11/30/2024 3:00 PM BOARD TURNER [facility] Visit [facility] - [place] #2 [place] [address] Ok Maldonado MD #[address] [address] documented as of this encounter Visit Diagnoses Not on filedocumented in this encounter Additional Health Concerns Assessment Noted Time PHQ-9 Depression Total Score: 2 07/18/20 20 4:26 PM CDT documented as of this encounter Care Teams Drawing Operator Relationship Specialty Start Date End Date Oswaldo Serrano MD #[address] [address] PCP - General Family Medicine 05/19/17 Angel Crowe DPM #[address] [address] Consulting Physician Podiatry 06/16/17 Mora Fritz Behavioral Health Navigator 06/15/18 documented as of this encounter
--- OUTSIDE RECORDS SUMMARY | 2024-10-07 00:25 | XMS_ITS | Encounter Summary ---
Author Organization [facility] Address [address] [place] [address] Phone Care Team Providers Care Sock Folder Name Role Phone Oswaldo Serrano MD Primary Care Provider Angel Crowe DPM Unavailable Mora Fritz Unavailable Unavailable Reason for Visit * Reason Comments Patient Outreach Encounter Details Date Type Department Care Team (Late st Contact Info) Description 01/05/2022 Care Management [facility] [employer]ait Processing Supervisor Management [address] [place], [place] [phone] Rukhsana James, RN [place] Patient Outreach Social History Tobacco Use Types Packs/Day Years [...] as of this encounter Progress Notes * Rukhsana James RN - 01/05/2022 4:11 PM CDT Loretta Penn was identified as high risk MSSP on 01/05/22 CM outreach placed to patient today to offer RN Care Management assistance. Patient is agreeable with risk and compliance analytics director next week to discuss medication's, hypertension, and ACP. ACP: No Discussion record completed: No Was ACP offered: Yes Diagnoses: Heart Failure and Diabetes Mellitus Scheduled phone assessment with Rukhsana DASILVA on 01/13 at 3 PM. Welcome letter sent Yes documented in this encounter Plan of Treatment Upcoming Encounters Date Type Department Care Team (Late st Contact Info) Description 10/08/2024 2:15 PM WAITER/WAITRESS DINING CAR Office Visit [facility]IAN GROUP UROLOGY #2 [place] [address] Orlin Urbina APRN, APARTMENT RENTAL AGENT #2 [place] [address] 10/18/2024 2:15 PM WAITER/WAITRESS DINING CAR [facility] 1 [place] [address] Oswaldo Serrano MD #[address] [address] Discharge Disposition: Discharged to home or Selfcare 11/29/2024 2:30 PM WAITER/WAITRESS DINING CAR [facility] Visit [facility] #2 [place] [address] Oswaldo Serrano MD #[address] [address] 11/30/2024 3:00 PM WAITER/WAITRESS DINING CAR Office Visit [facility] - Endocrinology [facility] #2 [place] [address] Ok Jorge MD #[address] [address] documented as of this encounter Visit Diagnoses Not on filedocumented in this encounter Additional Health Concerns Assessment Noted Time PHQ-9 Depression Total Score: 2 07/18/20 20 4:26 PM CDT documented as of this encounter Care Teams Sock Folder Relationship Specialty Start Date End Date Oswaldo Serrano MD #[address] [address] PCP - General Family Medicine 05/19/17 Angel Crowe DPM #[address] [address] Consulting Physician Podiatry 06/16/17 Mora Fritz [place] Behavioral Health Navigator 06/15/18 documented as of this encounter
--- OUTSIDE RECORDS SUMMARY | 2024-10-07 00:25 | XMS_ITS | Encounter Summary ---
Author Organization [facility] Address [address] [place] [address] Phone Care Team Providers Care Metaphysician Name Role Phone Oswaldo Serrano MD Primary Care Provider [phone] Angel Crowe DPM Unavailable Mora Fritz Unavailable Unavailable Ok Jorge MD Unavailable Orlin Urbina APRN, SPAGHETTI MACHINE OPERATOR Unavailable Reason for Visit * Reason Comments Medication Refill Encounter Details Date Type Department Care Team (Late st Contact Info) Description 12/09/2021 Refill [facility] [place] [facility] #2 [place] [address] Orlin Urbina APRN, SPAGHETTI MACHINE OPERATOR #2 [place] [address] Medication Refill Social History Tobacco Use Types [...] COVID-19? No / Unsure 12/10/2021 3:06 PM TURFGRASS TECHNICIAN documented as of this encounter Miscellaneous Notes * Telephone Encounter - Orlin Urbina APRN, CNP - 12/11/2021 12:52 PM TURFGRASS TECHNICIAN Patient needs follow-up for continued refills GRASS TECHNICIAN * Telephone Encounter - Peggy Parson RN - 12/10/2021 8:47 AM CST Medication failed the protocol, provider to review and approve the medication order if appropriate. Requested Prescriptions Pending Prescriptions Disp Refills Myrbetriq 50 MG TABLET SR 24 HR [Pharmacy Med Name: MYRBETRIQ 50MG] 30 Tablet 0 Sig: TAKE 1 TABLET BY MOUTH EVERY DAY Urinary Beta-3 Adrenergic Agonist Protocol Failed - 12/09/2021 4:12 PM Failed - No conflicting beta blockers on med list Passed - Blood pressure on record in past 12 months Passed - Visit with relevant provider in past 12 months or upcoming 90 days Recent Visits Date Type Provider Dept 10/27/21 Office Visit Orlin Urbina APRN, CNP [facility] Urology [facility] 10/07/21 Office Visit [facility] 07/28/21 [facility] Office Visit Connor Yuan APRN, [facility] 02/27/21 Office Visit Oswaldo Serrano MD [facility] 02/16/21 Office Visit Oswaldo Serrano MD [facility] 01/14/21 Office Visit Connor Yuan APRN, [facility] 12/19/20 Office Visit Oswaldo Serrano MD [facility] 12/18/20 Telemedicine Oswaldo Serrano MD [facility] Showing recent visits within past 365 days and meeting all other requirements Future Appointments Date Type Provider Dept 01/05/22 Appointment Oswaldo Serrano MD [facility] Showing future appointments within next 90 days and meeting all other requirements Passed - GFR greater than or equal to 30 in past 12 months GFR, EST. NONAFRICAN Date Value Ref Range Status 07/02/2021 60 >=60 Final GRASS TECHNICIAN documented in this encounter Plan of Treatment Upcoming Encounters Date Type Department Care Team (Late st Contact Info) Description 10/08/2024 2:15 PM TURFGRASS TECHNICIAN Office Visit [facility] UROLOGY #2 [place] [address] Orlin Urbina APRN, SPAGHETTI MACHINE OPERATOR #2 [place] [address] 10/18/2024 2:15 PM TURFGRASS TECHNICIAN [facility] 1 [place] [address] Oswaldo Serrano MD #[address] [address] Discharge Disposition: Discharged to home or Selfcare 11/29/2024 2:30 PM TURFGRASS TECHNICIAN [facility] #2 [place] [address] Oswaldo Serrano MD #[address] [address] 11/30/2024 3:00 PM TURFGRASS TECHNICIAN Office Visit [facility] #2 [place] [address] Ok Jorge MD #[address] [place] [address] documented as of this encounter Visit Diagnoses Diagnosis Nocturnal enuresis OAB (overactive bladder) Hypertonicity of bladder documented in this encounter Additional Health Concerns Assessment Noted Time PHQ-9 Depression Total Score: 2 07/18/20 20 4:26 PM CDT documented as of this encounter Care Teams Metaphysician Relationship Specialty Start Date End Date Oswaldo Serrano MD #[address] [address] PCP - General Family Medicine 05/19/17 Angel Crowe DPM #[address] [address] Consulting Physician Podiatry 06/16/17 Mora Fritz [place] Behavioral Health Navigator 06/15/18 Ok Jorge MD #[address] [place] [address] Consulting Physician Endocrinology 05/12/22 Orlin Urbina APRN, SPAGHETTI MACHINE OPERATOR #2 [place] [address] Nurse Practitioner Advanced Practice Nurse 11/09/22 documented as of this encounter
--- OUTSIDE RECORDS SUMMARY | 2024-10-07 00:25 | XMS_ITS | Encounter Summary ---
Author Organization [facility] Address [address] [place] [address] Phone Care Team Providers Care Eviscerator Name Role Phone Oswaldo Serrano MD Primary Care Provider [phone] Angel Crowe DPCiara Unavailable Mora Fritz Unavailable Unavailable Ok Jorge MD Unavailable Orlin Urbina APRN, ROVING HAULER Unavailable + [phone] Reason for Visit * Reason Comments Medication Refill Encounter Details Date Type Department Care Team (Late st Contact Info) Description 01/15/2022 Refill [facility] - [place] #2 [place] [address] Oswaldo Serrano MD #[address] [address] Medication Refill Social History Tobacco Use Types [...] Telephone Encounter - Mica Morales RN - 01/18/2022 7:11 AM CDT Medication failed the protocol, provider to review and approve the medication order if appropriate. Requested Prescriptions Pending Prescriptions Disp Refills docusate sodium (COLACE) 100 MG Capsule [Pharmacy Med Name: DOCUSATE SOD 100MG] 60 Capsule 0 Sig: TAKE ONE CAPSULE BY MOUTH TWICE DAILY Laxatives Protocol Failed - 01/15/2022 3:24 PM Failed - Up to date with [...] st Contact Info) Description 10/08/2024 2:15 PM UROLOGIST Office Visit [facility] UROLOGY #2 [place] [address] Orlin Urbina APRN, ROVING HAULER #2 [place] [address] 10/18/2024 2:15 PM UROLOGIST Appointment [facility] Mammography 1 [facility] [place] [address] Oswaldo Serrano MD #2 [facility] [address] [place] [address] Discharge Disposition: Discharged to home or Selfcare 11/29/2024 2:30 PM UROLOGIST [facility] Visit [facility] - [place] #2 [place] [address] Oswaldo Serrano MD #2 [facility] [address] [place] [address] 11/30/2024 3:00 PM UROLOGIST Office Visit [facility] - [place] #2 [place] [address] Ok Jorge MD #2 [facility] [address] [place] [address] documented as of this encounter Visit Diagnoses Not on filedocumented in this encounter Additional Health Concerns Assessment Noted Time PHQ-9 Depression Total Score: 2 07/18/20 20 4:26 PM CDT documented as of this encounter Care Teams Eviscerator Relationship Specialty Start Date End Date Oswaldo Serrano MD #2 [facility] [address] [place] [address] PCP - General Family Medicine 05/19/17 Angel Crowe DPM #2 [facility] [address] [place] [address] Consulting Physician Podiatry 06/16/17 Mora Fritz [place] Behavioral Health Navigator 06/15/18 Ok Jorge MD #2 [facility] [address] [place] [address] Consulting Physician Endocrinology 05/12/22 Orlin Urbina APRN, ROVING HAULER #2 [place] [address] Nurse Practitioner Advanced Practice Nurse 11/09/22 documented as of this encounter
--- OUTSIDE RECORDS SUMMARY | 2024-10-07 00:25 | XMS_ITS | Encounter Summary ---
Author Organization [facility] Address [address] [place] [address] Phone Care Team Providers Care Sales Support Advisor Name Role Phone Oswaldo Serrano MD Primary Care Provider [phone] Angel Crowe DPM Unavailable Mora Fritz Unavailable Unavailable Reason for Visit * Reason Onset Date Comments Results 01/14/2022 Encounter Details Date Type Department Care Team (Late st Contact Info) Description 01/14/2022 Telephone [facility] - Family Medicine [facility] #2 [place] [address] Oswaldo Serrano MD #[address] [address] Results Social History Tobacco Use Types Packs/Day [...] Recorded In the last 10 days, have derrick huang been in contact with someone who was confirmed or suspected to have Coronavirus/COVID-19? No / Unsure 01/05/2022 2:33 PM CDT documented as of this encounter Miscellaneous Notes * Telephone Encounter - Zainab Roblero RN - 01/14/2022 8:13 AM CDT Spoke with her sister Dilia (tawanda) to inform * Telephone Encounter - Zainab Roblero RN - 01/14/2022 8:11 AM CDT ----- Message from Oswaldo Serrano MD sent at 01/13/2022 11:17 PM CDT ----- Let her know I will call in an additional antibiotic for her UTI symptoms. Levaquin ordered. Tell her to drink plenty of water & cranberry juice. Thanks! documented in this encounter Plan of Treatment Upcoming Encounters Date Type Department Care Team (Late st Contact Info) Description 10/08/2024 2:15 PM AUTOMOBILE WASHER STEAM Office Visit [facility] #2 [place] [address] Orlin Urbina APRN, PYROMETER TEMPERATURE REGULATOR #2 [place] [address] 10/18/2024 2:15 PM AUTOMOBILE WASHER STEAM Appointment [facility] Mammography 1 [place] [address] Oswaldo Serrano MD #[address] [address] Discharge Disposition: Discharged to home or Selfcare 11/29/2024 2:30 PM AUTOMOBILE WASHER STEAM Office Visit [facility] #2 [facility] [place] [address] Oswaldo Serrano MD #[address] [address] 11/30/2024 3:00 PM AUTOMOBILE WASHER STEAM Office Visit [facility] Endocrinology [facility] #2 [place] [address] Ok Jorge MD #[address] [address] documented as of this encounter Visit Diagnoses Not on filedocumented in this encounter Additional Health Concerns Assessment Noted Time PHQ-9 Depression Total Score: 2 07/18/20 20 4:26 PM CDT documented as of this encounter Care Teams Sales Support Advisor Relationship Specialty Start Date End Date Oswaldo Serrano MD #[address] [address] PCP - General Family Medicine 05/19/17 Angel Crowe DPM #[address] [address] Consulting Physician Podiatry 06/16/17 Mora Fritz Behavioral Health Navigator 06/15/18 documented as of this encounter
--- OUTSIDE RECORDS SUMMARY | 2024-10-07 00:25 | XMS_ITS | Encounter Summary ---
Author Organization [facility] Address [address] [place] [address] Phone Care Team Providers Care Sliver Lapper Name Role Phone Oswaldo Serrano MD Primary Care Provider Angel Crowe DPM Unavailable Mora Fritz Unavailable Unavailable Encounter Details Date Type Department Care Team (Late st Contact Info) Description 11/20/2021 Telephone [facility] - [facility] - [place] #2 [place] [address] Ok Jorge MD #[address] [address] Social History Tobacco Use Types [...] COVID-19? No / Unsure 11/06/2021 11:06 AM SUPERVISOR MATTRESS AND BOXSPRINGS documented as of this encounter Miscellaneous Notes * Telephone Encounter - Ynes Zuniga, RN - 11/20/2021 3:34 PM SUPERVISOR MATTRESS AND BOXSPRINGS Dexcom G6 prior authorization approved. Auth # [id number] [employer] MATTRESS AND BOXSPRINGS documented in this encounter Plan of Treatment Upcoming Encounters Date Type Department Care Team (Late st Contact Info) Description 10/08/2024 2:15 PM SUPERVISOR MATTRESS AND BOXSPRINGS Office Visit [facility] UROLOGY #2 [place] [address] Orlin Urbina APRN, CDA TEACHER #2 [place] [address] 10/18/2024 2:15 PM SUPERVISOR MATTRESS AND BOXSPRINGS Appointment [facility] Mammography 1 [place] [address] Oswaldo Serrano MD #[address] [address] Discharge Disposition: Discharged to home or Selfcare 11/29/2024 2:30 PM SUPERVISOR MATTRESS AND BOXSPRINGS Office Visit [facility] Family Medicine [facility] #2 [place] [address] Oswaldo Serrano MD #[address] [address] 11/30/2024 3:00 PM SUPERVISOR MATTRESS AND BOXSPRINGS Office Visit [facility] - [facility] - [place] #2 [place] [address] Ok Jorge MD #2 [facility] [address] [address] documented as of this encounter Visit Diagnoses Not on filedocumented in this encounter Additional Health Concerns Assessment Noted Time PHQ-9 Depression Total Score: 2 07/18/20 20 4:26 PM CDT documented as of this encounter Care Teams Sliver Lapper Relationship Specialty Start Date End Date Oswaldo Serrano MD [address] [address] PCP - General Family Medicine 05/19/17 Angel Crowe DPM [facility] [address] Consulting Physician Podiatry 06/16/17 Mora Fritz Behavioral Health Navigator 06/15/18 documented as of this encounter
--- OUTSIDE RECORDS SUMMARY | 2024-10-07 00:25 | XMS_ITS | Encounter Summary ---
Author Organization [facility] Address [address] [place] [address] Phone Care Team Providers Care Product Design Engineer Name Role Phone Oswaldo Serrano MD Primary Care Provider [phone] Angel Crowe DPM Unavailable Mora Fritz Unavailable Unavailable Reason for Visit * Reason Comments Diabetes Mellitus Follow up Encounter Details Date Type Department Care Team (Late st Contact Info) Description 12/10/2021 3:00 PM HIM SPECIALIST Office Visit [facility] Medical [facility] - Endocrinology [facility] #2 [place] [address] Ok Jorge MD #[address] [address] Type 2 diabetes mellitus treated with insulin (HCC) (Primary Dx); Class 3 severe obesity due to excess calories with serious comorbidity and body mass index (BMI) of 45.0 to 49.9 in adult (HCC); Insulin dose changed (HCC) Discharge Disposition: Discharged to home or [...] COVID-19? No / Unsure 12/10/2021 3:06 PM HIM SPECIALIST documented as of this encounter Last Filed Vital Signs Vital Sign Reading Time Taken Comments Blood Pressure 124/76 12/10/2021 3:14 PM HIM SPECIALIST Pulse 77 12/10/2021 3:14 PM HIM SPECIALIST Temperature 36.3 ??C (97.4 ??F) 12/10/2021 3:14 PM CS T Respiratory Rate 18 12/10/2021 3:14 PM HIM SPECIALIST Oxygen Saturation 95% 12/10/2021 3:14 PM HIM SPECIALIST Inhaled Oxygen Concentration - - Weight 137 kg (302 lb) 12/10/2021 3:14 PM HIM SPECIALIST Height 167.6 cm (5' 6 ) 12/10/2021 3:14 PM HIM SPECIALIST Body Mass Index 48.74 12/10/2021 3:14 PM HIM SPECIALIST documented in this encounter Patient Instructions * Patient Instructions* Ok Jorge MD - 12/10/2021 3:00 PM HIM SPECIALIST Please take Tresiba (Lantus_ 17 units in the morning ?? Please take NovoLog (Humalog) 20-20-18 units before each meal ?? Please use correctional factor insulin before each meal as directed ?? Please monitor blood sugar before each meal and at bedtime ?? Please bring blood sugar log for review at the next visit ?? Contact Endocrinology Clinic for low blood sugar events ?? Follow up visit in 2 months ?? RULE OF 15: If you have signs/symptoms [...] toes clean and dry. ?? CORRECTION FACTOR: 1:30 ?? BLOOD GLUCOSE (SUGAR) CORRECTION FACTOR: 1:30 HUMALOG/NOVOLOG [...] 400 +9 UNITS ABOVE 400 +10 UNITS ? SPECIALIST documented in this encounter Progress Notes * Ynes Zuniga RN - 12/10/2021 3:00 PM CST Patient brought Dexcom G6 system with her for application and training. Date and time, high and lowalarms set. Patient and caregiver instructed on entering codes for the sensors and transmitter, andreminded that sensors are changed every 10 days and transmitters are reused for 90 days. Sensor successfully applied to LUQ and transmitter inserted. Patient and caregiver shown how to usereader device to start sensor. Advised to check blood glucose with glucometer if CGM number doesn't match how they feel. Also advised to use glucometer if taking high dose of acetaminophen. Patient and caregiver shown the number to Dexcom help desk if a sensor were to fall off or cause skin irritation, or if they had device-specific questions. Caregiver provided email address to send Share Code for Clarity kim and handout given that details how to access the Clarity kim on phone or computer and how to upload device. Advised to call office with any questions or concerns. Verbalized understanding. SPECIALIST * Ok Jorge MD - 12/10/2021 3:00 PM CST Subject&Objective Loretta Penn is a 60-year-old woman who comes to the Endocrinology office to discuss management of type 2 diabetes mellitus. 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 Other pertinent health history includes hypertension, dyslipidemia, and obesity. The patient was initially diagnosed with diabetes >10 years ago. Currently, Ms. Penn takes Tresiba 17 units at bedtime, NovoLog 16 units with breakfast, 16 units with lunch, and 14 units with supper for management of hyperglycemia. The patient reports infrequent, mild hypoglycemic events with intact symptoms of hypoglycemia awareness. The patient denied severe low blood sugar events requiring third constitution party intervention. Review of her capillary blood glucose log for the past two weeks showed that her blood sugars have been running mostly between 200 and 300 mg/dL. Her sister reports that the patient makes intentionally her blood glucose high to avoid hypoglycemia overnight. Hemoglobin A1c obtained in October 2021 was 9.7%. Physical Exam Vitals: 12/10/21 1514 BP: 124/76 BP Location: Right Arm BP Position: Sitting BP Cuff Size: Large Pulse: 77 Resp: 18 Temp: 97.4 ??F (36.3 ??C) TempSrc: Temporal SpO2: 95% Weight: 302 lb (137 kg) Height: 5' 6 (1.676 m) Constitutional: appears well-developed and well-nourished. No acute distress. Head: Normocephalic and atraumatic. Cardiovascular: Normal rate and regular rhythm Pulmonary/Chest: Effort normal and breath sounds normal Abdominal: No lipohypertrophy at injection sites Assessment and Plan Loretta Penn is a middle-aged woman with type 2 diabetes mellitus whose glycemic control was suboptimal based on review of her capillary blood glucose record. Treatment consideration, CGM, and hypoglycemic precaution were discussed with her at some length. She will take NovoLog 20-20-18 units before each meal and continue Tresiba 17 units in the morning for management of hyperglycemia. Ms. Penn will use Dexcom CGM from today. The patient will return for office reevaluation in 2 months. PLAN: 1. Take Tresiba 17 units at bedtime 2. Take Humalog 20-20-18 units before each meal 3. Correctional factor insulin dosed at 1:30 if CBG is > 140 mg/dl 4. Monitor blood sugar QAC/QHS 5. Bring CBG log for review 6. Contact Endocrinology Clinic for low blood sugar events 7. RTC in 2 months Obesity PLAN: 1. Low carb and calorie diet 2. Avoid snack and beverage between meal and at bedtime Hypoglycemia PLAN: 1. Consistent CHO diet 2. Rule of 15 Total time spent on this encounter on this date of service, including pre-visit review of separately obtained history, [id number] interaction performing medically appropriate physical exam, patientcounseling/education, interpretation of diagnostic results, care coordination and documentation was41 minute Ok Jorge MD 12/10/2021 SPECIALIST documented in this encounter Plan of Treatment Upcoming Encounters Date Type Department Care Team (Late st Contact Info) Description 10/08/2024 2:15 PM HIM SPECIALIST Office Visit [facility] UROLOGY #2 [place] [address] Orlin Urbina, SILO MAN, INSIGHTS MANAGER #2 [place] [address] 10/18/2024 2:15 PM HIM SPECIALIST Appointment [facility] Mammography 1 [place] [address] Oswaldo Serrano MD #[address] [address] Discharge Disposition: Discharged to home or Selfcare 11/29/2024 2:30 PM HIM SPECIALIST Office Visit [facility] Medical [facility] - Family Medicine [facility] #2 [place] [address] Oswaldo Serrano MD #[address] [address] 11/30/2024 3:00 PM HIM SPECIALIST Office Visit [facility] - Endocrinology [facility] #2 [place] [address] Ok Jorge MD #[address] [address] documented as of this encounter Visit Diagnoses Diagnosis Type 2 diabetes mellitus treated with insulin (HCC)- Primary Class 3 severe obesity due to excess calories with serious comorbidity and body mass index (BMI) of 45.0 to 49.9 in adult (HCC) Insulin dose changed (HCC) documented in this encounter Additional Health Concerns Assessment Noted Time PHQ-9 Depression Total Score: 2 07/18/20 20 4:26 PM CDT documented as of this encounter Care Teams Product Design Engineer Relationship Specialty Start Date End Date Oswaldo Serrano MD #[address] [address] PCP - General Family Medicine 05/19/17 Angel Crowe DPM #[address] [address] Consulting Physician Podiatry 06/16/17 Mora Fritz Behavioral Health Navigator 06/15/18 documented as of this encounter
--- OUTSIDE RECORDS SUMMARY | 2024-10-07 00:25 | XMS_ITS | Encounter Summary ---
Author Organization [employer] Care Team Providers Care Cook Vegetable Name Role Phone Oswaldo Serrano MD Primary Care Provider [phone] Angel Crowe DPM Unavailable [phone] Mora Fritz Unavailable Unavailable Encounter Details Date Type Department Care Team (Latest Contact Info) Description 10/27/2021 Travel Social History Tobacco Use Types Packs/Day [...] COVID-19? No / Unsure 10/27/2021 3:19 PM GUNCOTTON PACKER documented as of this encounter Plan of Treatment Upcoming Encounters Date Type Department Care Team (Late st Contact Info) Description 10/08/2024 2:15 PM GUNCOTTON PACKER Office Visit [facility] GROUP UROLOGY #2 [place] [address] Orlin Urbina, MARINE ELECTRICIAN, ASSOCIATE BIOLOGICAL SALES #2 [place] [address] 10/18/2024 2:15 PM GUNCOTTON PACKER [facility] 1 [place] [address] Oswaldo Serrano MD #2 [facility] [address] [place] [address] Discharge Disposition: Discharged to home or Selfcare 11/29/2024 2:30 PM GUNCOTTON PACKER [facility] Visit [facility] - [place] #2 [place] [address] Oswaldo Serrano MD #2 [facility] [address] [place] [address] 11/30/2024 3:00 PM GUNCOTTON PACKER Office Visit [facility] - Endocrinology - [place] #2 [place] [address] Ok Jorge MD #2 [facility] [address] [place] [address] documented as of this encounter Visit Diagnoses Not on filedocumented in this encounter Additional Health Concerns Assessment Noted Time PHQ-9 Depression Total Score: 2 07/18/20 20 4:26 PM CDT documented as of this encounter Care Teams Cook Vegetable Relationship Specialty Start Date End Date Oswaldo Serrano MD #[address] [address] PCP - General Family Medicine 05/19/17 Angel Crowe DPM #[address] [address] Consulting Physician Podiatry 06/16/17 Mora Fritz Behavioral Health Navigator 06/15/18 documented as of this encounter
--- OUTSIDE RECORDS SUMMARY | 2024-10-07 00:25 | XMS_ITS | Encounter Summary ---
Author Organization [facility] Care Team Providers Care Gas Line Repairer Name Role Phone Oswaldo Serrano MD Primary Care Provider [phone] Angel Crowe DPM Unavailable [phone] Mora Fritz Unavailable Unavailable Encounter Details Date Type Department Care Team (Latest Contact Info) Description 10/07/2021 Travel Social History Tobacco Use Types Packs/Day [...] COVID-19? No / Unsure 10/07/2021 3:45 PM STITCH BONDING MACHINE TENDER HELPER documented as of this encounter Plan of Treatment Upcoming Encounters Date Type Department Care Team (Late st Contact Info) Description 10/08/2024 2:15 PM STITCH BONDING MACHINE TENDER HELPER Office Visit [facility] UROLOGY #2 [place] [phone] Orlin Urbina, INVESTIGATION OFFICER, CALL CENTER MANAGER #2 [place] [address] 10/18/2024 2:15 PM STITCH BONDING MACHINE TENDER HELPER [facility] 1 [place] [phone] Oswaldo Serrano MD #2 [facility] [address] [place] [address] Discharge Disposition: Discharged to home or Selfcare 11/29/2024 2:30 PM STITCH BONDING MACHINE TENDER HELPER [facility] - [place] #2 [place] [address] Oswaldo Serrano MD #2 [facility] [address] [place] [address] 11/30/2024 3:00 PM STITCH BONDING MACHINE TENDER HELPER Office Visit [facility] - [place] #2 [place] [phone] Ok Jorge MD #2 [facility] [address] [place] [address] documented as of this encounter Visit Diagnoses Not on filedocumented in this encounter Additional Health Concerns Assessment Noted Time PHQ-9 Depression Total Score: 2 07/18/20 20 4:26 PM CDT documented as of this encounter Care Teams Gas Line Repairer Relationship Specialty Start Date End Date Oswaldo Serrano MD #[address] [address] PCP - General Family Medicine 05/19/17 Angel Crowe DPM #[address] [address] Consulting Physician Podiatry 06/16/17 Mora Fritz Behavioral Health Navigator 06/15/18 documented as of this encounter
--- OUTSIDE RECORDS SUMMARY | 2024-10-07 00:25 | XMS_ITS | Encounter Summary ---
Author Organization [facility] Address [address] [place] [address] Phone Care Team Providers Care Candle Extrusion Machine Operator Name Role Phone Oswaldo Serrano MD Primary Care Provider [phone] Angel Crowe DPM Unavailable Mora Fritz Unavailable Unavailable Reason for Visit * Reason Comments Diabetes Mellitus Follow up Encounter Details Date Type Department Care Team (Late st Contact Info) Description 02/12/2022 3:00 PM CDT Office Visit [facility] - End[facility]ology - [place] #2 [place] [address] Ok Jorge MD #[address] [address] Type 2 diabetes mellitus [...] Sign Reading Time Taken Comments Blood Pressure 108/62 02/12/2022 3:05 PM CDT Pulse 85 02/12/2022 3:05 PM CDT Temperature 36 ??C (96.8 ??F) 02/12/2022 3:05 PM CDT Respiratory Rate 18 02/12/2022 3:05 PM CDT Oxygen Saturation 96% 02/12/2022 3:05 PM CDT Inhaled Oxygen Concentration - - Weight 133.8 kg (295 lb) 02/12/2022 3:05 PM CDT Height 167.6 cm (5' 6 ) 02/12/2022 3:05 PM CDT Body Mass Index 47.61 02/12/2022 3:05 PM CDT documented in this encounter Patient Instructions * Patient Instructions* Ok Jorge MD - 02/12/2022 3:00 PM CDT Please take??Tresiba (Lantus 20??units in the morning ?? Please take??NovoLog (Humalog) 18-18-14??units before each meal ?? Please use correctional factor insulin before each meal as directed ?? Please monitor blood sugar before each meal and at bedtime ?? Please??bring??blood sugar log for review at the next visit ?? Contact Endocrinology Clinic for low blood sugar events ?? Follow up visit in??3 months ?? RULE OF 15: ??If you have [...] Progress Notes * Ok Jorge MD - 02/12/2022 3:00 PM CDT Subject&Objective Loretta Penn is a 61-year-old woman who comes to the Endocrinology office to discuss management of type 2 diabetes mellitus. 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 Other pertinent health history includes hypertension, dyslipidemia, and obesity. The patient was initially diagnosed with diabetes >10 years ago. Presently, the patient takes Lantus 17 units in the morning, Humalog 18 units with breakfast, 18 units with lunch, and 14 units with supper for management of hyperglycemia. The patient reports infrequent, mild hypoglycemic events with intact symptoms of hypoglycemia awareness. The patient denied severe low blood sugar events requiring third republican intervention. Review of her CGM download for the past four weeks showed morning values in the range of 240 to 280 mg/dL, lunch values ranging from 190to 270 mg/dL, dinner values in the range of 84 to 160 mg/dL, and bedtime values ranging from 150 to200 mg/dL. Average blood glucose was 225 mg/dL +/- 68. Hemoglobin A1c obtained by POC testing todaywas 9.5%, stable from the previous measurement of 9.7% obtained in October 2021. Physical Exam Vitals: 02/12/22 1505 BP: 108/62 BP Location: Left Arm BP Position: Sitting BP Cuff Size: Large Pulse: 85 Resp: 18 Temp: 96.8 ??F (36 ??C) TempSrc: Temporal SpO2: 96% Weight: 295 lb (133.8 kg) Height: 5' 6 (1.676 m) Constitutional: appears well-developed and well-nourished. No acute distress. Head: Normocephalic and atraumatic. Cardiovascular: Normal rate and regular rhythm Pulmonary/Chest: Effort normal and breath sounds normal Abdominal: No lipohypertrophy at injection sites Lab Results Component Value Date HGBA1C 9.5 (H) 01/21/2022 Lab Results Component Value Date HEMATOCRIT 44.1 01/21/2022 Lab Results Component Value Date CREATININE 0.75 01/21/2022 GFRNA >60 01/21/2022 CALCIUM 9.5 01/21/2022 SGPTALT 24 01/21/2022 Lab Results Component Value Date SODIUM 135 (L) 01/21/2022 POTASSIUM 4.5 01/21/2022 CHLORIDE 98 (L) 01/21/2022 CO2VEN 26 01/21/2022 MAGNESIUM 2.0 12/13/2020 Lab Results Component Value Date CHOLESTEROL 157 01/21/2022 TRIGLYCRIDES 161 (H) 01/21/2022 HDLCHOLESTE 41.8 01/21/2022 LDL 83 01/21/2022 CGM download was reviewed Assessment and Plan Loretta Penn is a middle-aged woman with type 2 diabetes mellitus whose glycemic control was suboptimal based on both review of her CGM download record and today's hemoglobin A1c measurement.Rising in blood glucose from HS to AM is likely due to high Carb intake at night. Treatment consideration and lifestyle modification were discussed with her and her sister at some length. She is agree able to avoid too much snack at bedtime and increase Tresiba to 20 units in the morning for management of hyperglycemia. The patient will return for office reevaluation in 3 months. PLAN: 1. Increase Tresiba to 20 units in the morning 2. Take Humalog 18-18-14 units before each meal 3. Correctional factor [...] including pre-visit review of separately obtained history, [id number] interaction performing medically appropriate physical exam, patientcounseling/education, interpretation of diagnostic results, care coordination and documentation was35 minute Ok Jorge MD 02/12/2022 documented in this encounter Plan of Treatment Upcoming Encounters Date Type Department Care Team (Late st Contact Info) Description 10/08/2024 2:15 PM PROCESS TECH Office Visit [facility] UR[facility] #2 [place] [address] Orlin Urbina, STREETCAR REPAIRER HELPER, MATCHBOOK ASSEMBLER #2 [place] [address] 10/18/2024 2:15 PM PROCESS TECH Appointment [facility] Mamm[facility] 1 [place] [address] Oswaldo Serrano MD #[address] [address] Discharge Disposition: Discharged to home or Selfcare 11/29/2024 2:30 PM PROCESS TECH Office Visit [facility] - Family Medicine [facility] #2 [place] [address] Oswaldo Serrano MD #2 [facility] [address] [place] [address] 11/30/2024 3:00 PM PROCESS TECH Office Visit [facility] Endocrinology [facility] #2 [place] [address] Ok Jorge MD #[address] [address] documented as of this encounter Visit Diagnoses Diagnosis Type 2 diabetes mellitus treated with insulin ([facility])- Primary Class 3 severe obesity due to excess calories with serious comorbidity and body mass index (BMI) of 45.0 to 49.9 in adult ([facility]) Insulin dose changed ([facility]) documented in this encounter Additional Health Concerns Assessment Noted Time PHQ-9 Depression Total Score: 2 07/18/20 20 4:26 PM CDT documented as of this encounter Care Teams Candle Extrusion Machine Operator Relationship Specialty Start Date End Date Oswaldo Serrano MD #[address] [address] PCP - General Family Medicine 05/19/17 Angel Crowe DPM #[address] [address] Consulting Physician Podiatry 06/16/17 Mora Fritz Behavioral Health Navigator 06/15/18 documented as of this encounter
--- OUTSIDE RECORDS SUMMARY | 2024-10-07 00:25 | XMS_ITS | Encounter Summary ---
Author Organization [facility] Address [address] [place] [address] Phone Care Team Providers Care Automatic Edger Name Role Phone Oswaldo Serrano MD Primary Care Provider [phone] Angel Crowe DPM Unavailable [phone] Mora Fritz Unavailable Unavailable Ok Jorge MD Unavailable Orlin Urbina APRN, COPRA SAMPLER Unavailable [phone] Reason for Visit * Reason Comments Medication Refill Encounter Details Date Type Department Care Team (Late st Contact Info) Description 10/14/2021 Refill [facility] [address] [place] [address] Edwar Romo MD #[address] [facility], [address] [address] Medication Refill Social History Tobacco Use Types [...] COVID-19? No / Unsure 10/07/2021 3:45 PM PROFESSOR OF MUSICOLOGY documented as of this encounter Miscellaneous Notes * Telephone Encounter - Edwar Romo MD - 10/20/2021 11:28 AM CST Needs follow up appt before refilling medication. ESSOR OF MUSICOLOGY * Telephone Encounter - Peggy Parson RN - 10/15/2021 9:54 AM CST Medication failed the protocol, provider to review and approve the medication order if appropriate. Requested Prescriptions Pending Prescriptions Disp Refills desmopressin (DDAVP) 0.2 MG Tablet [Pharmacy Med Name: DESMOPRESSIN 0.2MG] 90 Tablet 2 Sig: TAKE 1 TABLET BY MOUTH NIGHTLY. LIMIT INTAKE OF LIQUIDS AFTER THE EVENING MEAL. Not Delegated - Desmopressin Protocol Failed - 10/14/2021 4:22 PM Failed - This refill cannot be delegated Passed - Visit with relevant provider in past 12 months or upcoming 90 days Recent Visits Date Type Provider Dept 10/07/21 Office Visit Oswaldo Serrano MD [facility] 07/28/21 Telemedicine Oswaldo Serrano MD [facility] 05/14/21 Office Visit Connor Yuan, BASIC SCIENCES DEAN, [facility]UDI [facility] [place] [facility] 02/27/21 Office Visit Oswaldo Serrano MD [facility] 02/16/21 Office Visit Oswaldo Serrano MD [facility] 01/14/21 Office Visit Connor Yuan APRN, YUDI [facility] 12/19/20 Office Visit Oswaldo Serrano MD [facility] 12/18/20 Telemedicine Oswaldo Serrano MD [facility] 12/08/20 Telemedicine Oswaldo Serrano MD [facility] 11/07/20 Telemedicine Connor Yuan APRN, COPRA SAMPLER [facility] Show[facility] recent visits within past 365 days and meeting all other requirements Future Appointments Date Type Provider Dept 01/05/22 Appointment Oswaldo Serrano MD [facility] Showing future appointments within next 90 days and meeting all other requirements ESSOR OF MUSICOLOGY documented in this encounter Plan of Treatment Upcoming Encounters Date Type Department Care Team (Late st Contact Info) Description 10/08/2024 2:15 PM PROFESSOR OF MUSICOLOGY Office [facility] PHYSICIAN [facility] #2 [place] [address] Orlin Urbina APRN, COPRA SAMPLER #2 [place] [address] 10/18/2024 2:15 PM PROFESSOR OF MUSICOLOGY [facility] 1 [place] [address] Oswaldo Serrano MD #[address] [address] Discharge Disposition: Discharged to home or Selfcare 11/29/2024 2:30 PM PROFESSOR OF MUSICOLOGY [facility] - [place] #2 [place] [address] [facility]aldo [facility]errano MD #2 [facility] [address] [place] [address] 11/30/2024 3:00 PM PROFESSOR OF MUSICOLOGY Office [facility] Endocr[facility] #2 [place] [address] Ok Jorge MD [address] [address] documented as of this encounter Visit Diagnoses Diagnosis Nocturnal enuresis documented in this encounter Additional Health Concerns Assessment Noted Time PHQ-9 Depression Total Score: 2 07/18/20 20 4:26 PM CDT documented as of this encounter Care Teams Automatic Edger Relationship Specialty Start Date End Date Oswaldo Serrano MD #[address] [address] PCP - General Family Medicine 05/19/17 Angel Crowe DPM #[address] [address] Consulting Physician Podiatry 06/16/17 Mora Fritz [place] Behavioral Health Navigator 06/15/18 Ok Jorge MD #[address] [address] Consulting Physician Endocrinology 05/12/22 Orlin Urbina APRN, COPRA SAMPLER #2 [place] [address] Nurse Practitioner Advanced Practice Nurse 11/09/22 documented as of this encounter
--- OUTSIDE RECORDS SUMMARY | 2024-10-07 00:25 | XMS_ITS | Encounter Summary ---
Author Organization [facility] Address [address] [place] [address] Phone Care Team Providers Care Clerical Adjuster Name Role Phone Oswaldo Serrano MD Primary Care Provider [phone] Angel Crowe DPM Unavailable [phone] Mora Fritz Unavailable Unavailable Ok Jorge MD Unavailable Orlin Urbina APRN, PRODUCTION SAMPLER Unavailable Reason for Visit * Reason Comments Medication Refill Encounter Details Date Type Department Care Team (Late st Contact Info) Description 10/28/2021 Refill [facility] #[address] [place] [address] Edwar Romo MD #[address] [facility], [address] [address] Medication Refill Social History Tobacco Use Types [...] COVID-19? No / Unsure 10/27/2021 3:19 PM PANTS PRESSER AUTOMATIC documented as of this encounter Plan of Treatment Upcoming Encounters Date Type Department Care Team (Late st Contact Info) Description 10/08/2024 2:15 PM PANTS PRESSER AUTOMATIC Office Visit [facility] #2 [place] [address] Orlin Urbina, FASHION SUPERVISOR, PRODUCTION SAMPLER #2 [place] [address] 10/18/2024 2:15 PM PANTS PRESSER AUTOMATIC Appointment [facility] Mammography 1 [place] [address] Oswaldo Serrano MD #[address] [address] Discharge Disposition: Discharged to home or Selfcare 11/29/2024 2:30 PM PANTS PRESSER AUTOMATIC Office [facility] #2 [place] [address] Oswaldo Serrano MD #[address] [address] 11/30/2024 3:00 PM PANTS PRESSER AUTOMATIC Office Visit [facility] End[facility]ology - [place] #2 [place] [address] Ok Jorge MD #[address] [place] [address] documented as of this encounter Visit Diagnoses Diagnosis Nocturnal enuresis documented in this encounter Additional Health Concerns Assessment Noted Time PHQ-9 Depression Total Score: 2 07/18/20 20 4:26 PM CDT documented as of this encounter Care Teams Clerical Adjuster Relationship Specialty Start Date End Date Oswaldo Serrano MD #[address] [address] PCP - General Family Medicine 05/19/17 Angel Crowe DPM #[address] [address] Consulting Physician Podiatry 06/16/17 Mora Fritz [place] Behavioral Health Navigator 06/15/18 Ok Jorge MD #[address] [address] Consulting Physician Endocrinology 05/12/22 Orlin Urbina APRN, PRODUCTION SAMPLER #2 [place] [address] Nurse Practitioner Advanced Practice Nurse 11/09/22 documented as of this encounter
--- OUTSIDE RECORDS SUMMARY | 2024-10-07 00:25 | XMS_ITS | Encounter Summary ---
Author Organization [facility] Address [address] [place] [address] Phone Care Team Providers Care Molding Line Operator Name Role Phone Oswaldo Serrano MD Primary Care Provider [phone] Angel Crowe DPM Unavailable Mora Fritz Unavailable Unavailable Reason for Visit * Reason Onset Date Comments Results 10/28/2021 Encounter Details Date Type Department Care Team (Late st Contact Info) Description 10/28/2021 Telephone [facility] - Family Medicine [facility] #2 [place] [address] Oswaldo Serrano MD #[address] [address] Results Social History Tobacco Use Types Packs/Day [...] COVID-19? No / Unsure 10/27/2021 3:19 PM GUNITE NOZZLE OPERATOR documented as of this encounter Miscellaneous Notes * Telephone Encounter - Zainab Roblero RN - 10/28/2021 12:45 PM CST Sent to my chart TE NOZZLE OPERATOR * Telephone Encounter - Zainab Roblero RN - 10/28/2021 12:45 PM CST ----- Message from Oswaldo Serrano MD sent at 10/28/2021 12:44 PM GUNITE NOZZLE OPERATOR ----- Let her know the hospital will call her to set up additional breast imaging. Thanks! TE NOZZLE OPERATOR documented in this encounter Plan of Treatment Upcoming Encounters Date Type Department Care Team (Late st Contact Info) Description 10/08/2024 2:15 PM GUNITE NOZZLE OPERATOR Office Visit [facility] UR[facility]Y #2 [place] [address] Orlin Urbina APRN, FARMWORKER FUR #2 [place] [address] 10/18/2024 2:15 PM GUNITE NOZZLE OPERATOR Appointment [facility] Mammography 1 [place] [address] Oswaldo Serrano MD #[address] [address] Discharge Disposition: Discharged to home or Selfcare 11/29/2024 2:30 PM GUNITE NOZZLE OPERATOR Office Visit [facility] Family Medicine [facility] #2 [place] [address] Oswaldo Serrano MD #[address] [address] 11/30/2024 3:00 PM GUNITE NOZZLE OPERATOR Office Visit [facility] Endocrinology - [place] #2 [place] [address] Ok Jorge MD #[address] [address] documented as of this encounter Visit Diagnoses Not on filedocumented in this encounter Additional Health Concerns Assessment Noted Time PHQ-9 Depression Total Score: 2 07/18/20 20 4:26 PM CDT documented as of this encounter Care Teams Molding Line Operator Relationship Specialty Start Date End Date Oswaldo Serrano MD #[address] [address] PCP - General Family Medicine 05/19/17 Angel Crowe DPM #[address] [address] Consulting Physician Podiatry 06/16/17 Mora Fritz Behavioral Health Navigator 06/15/18 documented as of this encounter
--- OUTSIDE RECORDS SUMMARY | 2024-10-07 00:25 | XMS_ITS | Encounter Summary ---
Author Organization [facility] Address [address] [place] [address] Phone Care Team Providers Care Supervisor Telephone Answering Service Name Role Phone Oswaldo Serrano MD Primary Care Provider [phone] Angel Crowe DPM Unavailable [phone] Mora Fritz Unavailable Unavailable Reason for Visit * Radiology Services (Routine) - Closed Specialty Diagnoses / Procedures Referred By Praful ferro Referred To Contact Radiology Diagnoses Encounter for screening mammogram for breast cancer Procedures SHABANA SCREENING BILATERAL DIGITAL W CAD SHABANA SCREENING BILATERAL DIGITAL W CAD W Oswaldo Andrews MD #[address] [address] Phone: tel: fax: Referral ID Status Reason Start Date Expiration Date Visits Re quested Visits Authorized [id number] Closed 10/07/2021 1 1 Encounter Details Date Type Department Care Team (Latest Contact Info) Description 10/27/2021 3:30 PM TRIAGE REGISTER NURSE - 10/27/2021 11:59 PM TRIAGE REGISTER NURSE Hospital Encounter [facility] Mammography [address] [place] [phone] Oswaldo Serrano MD [address] [place] [address] Discharge Disposition: Discharged to home or Selfcare [...] COVID-19? No / Unsure 10/27/2021 3:19 PM TRIAGE REGISTER NURSE documented as of this encounter Medications at Time of Discharge Blood Glucose Monitoring Suppl Device Test blood glucose 4 times daily. E11.9, insulin dependent 1 Each 2019 dilTIAZem (CARDIZEM) 30 MG Tablet TK 1 [...] MCG/ACT Aerosol Solution 02/14/2021 08/26/20 2 2 amoxicillin-clavu lanate (AUGMENTIN) 875-125 MG Tablet TAKE 1 TABLET BY MOUTH EVERY 12 HOURS 05/07/2021 2 ASPIR-LOW 81 MG Tablet Delayed Response 05/24/2017 2 Blood Pressure Monitoring (Blood Pressure Cuff) MiscIndications:E ssential hypertension Dispense battery-powered arm cuff (Dx: I10) 1 Each 2020 2 Calcium Carbonate-Vitamin D3 (Calcium 600/Vitamin D) 600-400 MG-UNIT Tablet Use as directed 60 Tablet 11 05/14/2021 2 carvedilol (COREG) 25 MG Tablet 25 mg 2 times daily. 05/06/2017 4 desmopressin (DDAVP) 0.2 MG TabletIndications :Nocturnal enuresis Take 1 Tab by mouth nightly. Limit intake of liquids after the evening meal. 90 Tab 3 10/29/2020 2 diphenhydrAMINE (BENADRYL) 25 MG TabletIndications :Insomnia,itching Take 25 mg by mouth every 6 hours as needed for Itching or Sleep. 05/24/2017 2 DOK 100 MG Capsule TAKE ONE CAPSULE BY MOUTH TWICE DAILY 60 Capsule 1 10/15/2021 2 ergocalciferol (VITAMIN D) 66412 UNIT CapsuleIndication s:Vitamin D deficiency TAKE ONE CAPSULE BY MOUTH ONCE WEEKLY 4 Capsule 05/13/2021 2 escitalopram (LEXAPRO) 10 MG Tablet TAKE ONE TABLET BY MOUTH EVERY DAY 90 Tablet 2 09/12/2021 2 fluconazole (DIFLUCAN) 150 MG Tablet TAKE 1 TABLET BY MOUTH 1 TIME FOR 1 DOSE 10/17/2020 2 fluticasone (FLONASE) 50 MCG/ACT Suspension 1-2 Sprays by Nasal route daily. Use in each nostril as directed. 1 Bottle 3 12/08/2020 2 fluticasone (FLONASE) 50 MCG/ACT SuspensionIndicat ions:Chronic sinus complaints 2 Sprays by Nasal route daily. Use in each nostril as directed. 3 Bottle 3 04/07/2020 2 furosemide (LASIX) 40 MG TabletIndications :Chronic congestive heart failure, unspecified heart failure type (HCC) Take 1 Tab by mouth daily. 90 Tab 3 11/12/2020 2 Glucose Blood Strip Test blood glucose 4x daily. E11.9, insulin dependent 400 Strip 3 03/12/2021 2 guaiFENesin-codei ne (Cheratussin AC) 100-10 MG/5ML SyrupIndications: Acute bronchitis, unspecified organism Take 5 mL by mouth every 4 hours as needed for Cough. 180 mL 05/14/2021 2 HumaLOG KwikPen 100 UNIT/ML Solution Pen-injector 10/01/2021 2 insulin aspart (NovoLOG FlexPen) 100 UNIT/ML Solution Pen-injector INJECT 18 UNITS AT BREAKFAST, 18 UNITS AT LUNCH AND 16 UNITS AT DINNER -- ISF OF 1:30 IF GREATER THAN 140MG/DL UP TO 100 UNITS PER DAY 90 mL 1 09/30/2021 2 insulin degludec (Tresiba FlexTouch) 100 UNIT/ML [...] 31GX5/16 ) 31G X 8 MM Misc Three times a day 300 Each 3 07/01/2017 2 levothyroxine (SYNTHROID) 50 MCG Tablet TAKE ONE TABLET BY MOUTH EVERY MORNING 90 Tablet 3 12/10/2020 2 lisinopril (PRINIVIL, ZESTRIL) 5 MG TabletIndications :Orthostatic hypotension TAKE ONE TABLET BY MOUTH EVERY DAY 90 Tablet 2 08/06/2021 2 Mirabegron ER (Myrbetriq) 50 MG TABLET SR 24 HRIndications:Noc turnal enuresis,OAB (overactive bladder) Take 50 mg by mouth daily. 30 Tablet 1 10/27/2021 2 nortriptyline (PAMELOR) 10 MG Capsule TAKE ONE CAPSULE BY MOUTH ONE TIME DAILY IN THE EVENING 90 Capsule 2 09/12/2021 2 omeprazole (PriLOSEC) 20 MG CAPSULE DELAYED RELEASE TAKE ONE CAPSULE BY MOUTH DAILY 90 Capsule 3 01/22/2021 2 potassium chloride SA (KLORCON M) 20 MEQ Tablet Controlled Release potassium chloride 20 mEq tablet,ER particles/crystal s 10/10/1969 2 potassium chloride SA (KLORCON M) 20 MEQ Tablet Controlled ReleaseIndication s:Chronic congestive heart failure, unspecified heart failure type (HCC) Take 1 Tab by mouth daily. 90 Tab 3 11/12/2020 2 predniSONE (DELTASONE) 20 MG Tablet Take 1 Tablet by mouth 2 times daily. 10 Tablet 07/28/2021 2 rivaroxaban (Xarelto) 20 MG Tablet Take 20 mg by mouth daily (with dinner). Take with food. 4 documented as of this encounter Plan of Treatment Upcoming Encounters Date Type Department Care Team (Late st Contact Info) Description 10/08/2024 2:15 PM TRIAGE REGISTER NURSE Office Visit [facility] #2 [place] [address] Orlin Urbina, THERMAL CUTTER HAND, LIQUID NATURAL GAS PLANT OPERATOR #2 [place] [address] 10/18/2024 2:15 PM TRIAGE REGISTER NURSE [facility]ointment [facility] M[facility] 1 [place] [address] Oswaldo Serrano MD #[address] [address] Discharge Disposition: Discharged to home or Selfcare 11/29/2024 2:30 PM TRIAGE REGISTER NURSE Office Visit [facility] - [facility] #2 [place] [address] Oswaldo Serrano MD #2 [facility] [address] [place] [address] 11/30/2024 3:00 PM TRIAGE REGISTER NURSE Office Visit [facility] [place] #2 [place] [address] Ok Jorge MD #2 [facility] [address] [place] [address] documented as of this encounter Procedures Procedure Name Priority Date/Time Associated Diagnosis Comments SHABANA SCREENING BILATERAL DIGITAL W CAD Routine 10/27/2021 4:35 PM TRIAGE REGISTER NURSE Encounter for screening mammogram for breast cancer documented in this encounter Results * SHABANA SCREENING BILATERAL DIGITAL W CAD (10/27/2021 4:35 PM TRIAGE REGISTER NURSE) Anatomical Region Laterality Modality breast Bilateral Mammography 10/27/2021 3:42 PM TRIAGE REGISTER NURSE Narrative 10/28/2021 11:55 AM TRIAGE REGISTER NURSE - SHABANA SCREENING BILATERAL DIGITAL W CAD BILATERAL DIGITAL SCREENING MAMMOGRAM WITH CAD WITH MEDIOLATERAL OBLIQUE CRANIOCAUDAL: 10/27/2021 The study was acquired using digital technology and interpreted from soft copy. Current study was also evaluated with ICAD version 7.2. ?? CLINICAL: Routine screening. Patient has no complaints. No personal history of cancer. No family history of breast cancer. Due to patient body habitus, additional images were taken in an effort to obtain adequate breast tissue. 2D exam; unable to fully follow breathing instructions. ?? COMPARISONS: Comparison is made to exams dated: ??10/17/2018 [facility], 07/07/2015, and 08/07/2010 [facility]. ?? BREAST TISSUE:There are scattered fibroglandular densities in both breasts. ?? FINDINGS: A cardiac pacemaker is present on the left. ?? There is a cluster of calcifications in the left breast at 1 o'clock middle depth. ?? No other significant masses, calcifications, or other findings are seen in either breast. ?? IMPRESSION: BI-RAD 0 ADDITIONAL IMAGING EVALUATION NEEDED The cluster of calcifications in the left breast is indeterminate. ?? An immediate follow-up is recommended. ?? A letter will be sent to the patient with these results. Electronically signed by: Arsalan Bocanegra M.D. ? ll/:10/28/2021 10:27:11 ?? Power Manager(s): Debi ?? PEDRO Cordero)(Ciara), [facility] letter sent: Additional Imaging ?? Reading location: [facility] BI-RADS: 0 Additional Imaging Evaluation Needed Procedure Note Arsalan Bocanegra MD - 10/28/2021 - SHABANA SCREENING BILATERAL DIGITAL W CAD BILATERAL DIGITAL SCREENING MAMMOGRAM WITH CAD WITH MEDIOLATERAL OBLIQUE CRANIOCAUDAL: 10/27/2021 The study was acquired using digital technology and interpreted from soft copy. Current study was also evaluated with ICAD version 7.2. CLINICAL: Routine screening. Patient has no complaints. No personal history of cancer. No family history of breast cancer. Due to patient body habitus, additional images were taken in an effort to obtain adequate breast tissue. 2D exam; unable to fully follow breathing instructions. COMPARISONS: Comparison is made to exams dated: 10/17/2018 [facility], 07/07/2015, and 08/07/2010 [facility]. BREAST TISSUE:There are scattered fibroglandular densities in both breasts. FINDINGS: A cardiac pacemaker is present on the left. There is a cluster of calcifications in the left breast at 1 o'clock middle depth. No other significant masses, calcifications, or other findings are seen in either breast. IMPRESSION: BI-RAD 0 ADDITIONAL IMAGING EVALUATION NEEDED The cluster of calcifications in the left breast is indeterminate. An immediate follow-up is recommended. A letter will be sent to the patient with these results. Electronically signed by: Arsalan Bocanegra M.D. ll/:10/28/2021 10:27:11 Power Manager(s): PEDRO Toussaint)(M), [facility] letter sent: Additional Imaging Reading location: [facility] BI-RADS: 0 Additional Imaging Evaluation Needed Oswaldo Serrano MD IMG MAMMO ORDERABLES Final Result documented in this encounter Visit Diagnoses Diagnosis Encounter for screening mammogram for breast cancer documented in this encounter Additional Health Concerns Assessment Noted Time PHQ-9 Depression Total Score: 2 07/18/20 20 4:26 PM CDT documented as of this encounter Care Teams Supervisor Telephone Answering Service Relationship Specialty Start Date End Date Oswaldo Serrano MD #[address] [address] PCP - General Family Medicine 05/19/17 Angel Crowe DPM #[address] [address] Consulting Physician Podiatry 06/16/17 Mora Fritz Behavioral Health Navigator 06/15/18 documented as of this encounter
--- OUTSIDE RECORDS SUMMARY | 2024-10-07 00:25 | XMS_ITS | Encounter Summary ---
Author Organization [facility] Address [address] [place] [address] Phone Care Team Providers Care Painter Set Name Role Phone Oswaldo Serrano MD Primary Care Provider [phone] Angel Crowe DPM Unavailable Mora Fritz Unavailable Unavailable Reason for Visit * Reason Comments Medication Refill Encounter Details Date Type Department Care Team (Late st Contact Info) Description 01/21/2022 Refill [facility] #2 [place] [address] Oswaldo Serrano MD #[address] [address] Medication Refill Social History Tobacco Use Types [...] Encounter - Mica Morales RN - 01/22/2022 8:58 AM CDT Medication(s) refilled and signed per [facility] Chronic Medication Refill Standing Order for Pediatricand Adult Patients. Requested Prescriptions Pending Prescriptions Disp Refills ??? omeprazole (PriLOSEC) 20 MG CAPSULE DELAYED RELEASE [Pharmacy Med Name: *OMEPRAZOLE 20MG] 90 Capsule 2 Sig: TAKE ONE CAPSULE BY MOUTH EVERY DAY Proton Pump Inhibitors Protocol Passed - 01/21/2022 5:47 PM Passed - Visit with relevant provider in past 12 months or upcoming 90 days Recent Visits Date Type Provider Dept 01/05/22 Office Visit Oswaldo Serrano MD [facility] 10/07/21 Office Visit Oswaldo Serrano MD [facility] 07/28/21 Telemedicine Oswaldo Serrano MD [facility] 05/14/21 Office Visit Connor Yuan APRN, CNP [facility] 02/27/21 Office Visit [facility]do S[facility] MD [facility] [...] Contact Info) Description 10/08/2024 2:15 PM SYSTEM VALIDATION ENGINEER Office Visit [facility] #2 [place] [phone] Orlin Urbina APRN, PLANT SENIOR MANAGER #2 [place] [address] 10/18/2024 2:15 PM SYSTEM VALIDATION ENGINEER Appointment [facility] Mammography 1 [place] [phone] Oswaldo Serrano MD #[address] [address] Discharge Disposition: Discharged to home or Selfcare 11/29/2024 2:30 PM SYSTEM VALIDATION ENGINEER Office Visit [facility] - [place] #2 [place] [address] Oswaldo Serrano MD #[address] [address] 11/30/2024 3:00 PM SYSTEM VALIDATION ENGINEER Office Visit [facility] - [place] #2 [place] [address] Ok Jorge MD #[address] [address] documented as of this encounter Visit Diagnoses Not on filedocumented in this encounter Additional Health Concerns Assessment Noted Time PHQ-9 Depression Total Score: 2 07/18/20 20 4:26 PM CDT documented as of this encounter Care Teams Painter Set Relationship Specialty Start Date End Date Oswaldo Serrano MD #[address] [address] PCP - General Family Medicine 05/19/17 Angel Crowe DPM #[address] [address] Consulting Physician Podiatry 06/16/17 Mora Fritz [place] Behavioral Health Navigator 06/15/18 documented as of this encounter
--- OUTSIDE RECORDS SUMMARY | 2024-10-07 00:25 | XMS_ITS | Encounter Summary ---
Author Organization [facility] Address [address] [place] [address] Phone Care Team Providers Care Respiratory Practitioner Name Role Phone Oswaldo Serrano MD Primary Care Provider [phone] Angel Crowe DPM Unavailable [phone] Mora Fritz Unavailable Unavailable Reason for Visit * Reason Onset Date Comments Form Completion 10/13/2021 Encounter Details Date Type Department Care Team (Late st Contact Info) Description 10/13/2021 Telephone [facility] #2 [place] [phone] Oswaldo Serrano MD #[address] [address] Form Completion Social History Tobacco Use Types [...] COVID-19? No / Unsure 10/07/2021 3:45 PM WATERSHED TENDER documented as of this encounter Miscellaneous Notes * Telephone Encounter - Zainab Roblero RN - 10/13/2021 8:00 AM CST Form received from [email or web address] for pcp signature on incontinence supplies. Signed and faxed back RSHED TENDER documented in this encounter Plan of Treatment Upcoming Encounters Date Type Department Care Team (Late st Contact Info) Description 10/08/2024 2:15 PM WATERSHED TENDER Office Visit [facility] #2 [place] [phone] Orlin Urbina APRN, RECREATIONAL LEADER #2 [place] [address] 10/18/2024 2:15 PM WATERSHED TENDER Appointment [facility] Mammography 1 [place] [address] Oswaldo Serrano MD #[address] [address] Discharge Disposition: Discharged to home or Selfcare 11/29/2024 2:30 PM WATERSHED TENDER Office Visit [facility] #2 [place] [address] Oswaldo Serrano MD #[address] [address] 11/30/2024 3:00 PM WATERSHED TENDER Office Visit [facility] - [facility] #2 [place] [address] Ok Jorge MD #[address] [place] [address] documented as of this encounter Visit Diagnoses Not on filedocumented in this encounter Additional Health Concerns Assessment Noted Time PHQ-9 Depression Total Score: 2 07/18/20 20 4:26 PM CDT documented as of this encounter Care Teams Respiratory Practitioner Relationship Specialty Start Date End Date Oswaldo Serrano MD #[address] [address] PCP - General Family Medicine 05/19/17 Angel Crowe DPM #[address] [address] Consulting Physician Podiatry 06/16/17 Mora Fritz Behavioral Health Navigator 06/15/18 documented as of this encounter
--- OUTSIDE RECORDS SUMMARY | 2024-10-07 00:25 | XMS_ITS | Encounter Summary ---
Author Organization [facility] Address [address] [place] [address] Phone Care Team Providers Care Supervisor Channel Process Name Role Phone Oswaldo Serrano MD Primary Care Provider [phone] Angel Crowe DPM Unavailable Mora Fritz Unavailable Unavailable Ok Jorge MD Unavailable Orlin Urbina APRN, SKIDDER RUNNER Unavailable [phone] Reason for Visit * Reason Comments Medication Refill Encounter Details Date Type Department Care Team (Late st Contact Info) Description 01/15/2022 Refill [facility] [place] #2 [place] [address] Orlin Urbina APRN, SKIDDER RUNNER #2 [place] [address] Medication Refill Social History Tobacco Use Types [...] Telephone Encounter - Peggy Parson RN - 01/15/2022 3:45 PM CDT Medication failed the protocol, provider to review and approve the medication order if appropriate. Requested Prescriptions Pending Prescriptions Disp Refills Myrbetriq 50 MG TABLET SR 24 HR [Pharmacy Med Name: MYRBETRIQ 50MG] 30 Tablet 0 Sig: TAKE ONE TABLET BY MOUTH EVERY DAY Urinary Beta-3 Adrenergic Agonist Protocol Failed - 01/15/2022 3:24 PM Failed - No conflicting beta blockers on med list Passed - Blood pressure on record in past 12 months Passed - Visit with relevant provider in past 12 months or upcoming 90 days Recent Visits Date Type Provider Dept 01/05/22 Office Visit Oswaldo Serrano MD [facility] 10/27/21 Office Visit Orlin Urbina APRN, SKIDDER RUNNER [facility] 10/07/21 Office Visit Oswaldo Serrano MD [facility] 07/28/21 Telemedicine Oswaldo Serrano MD [facility] 05/14/21 Office Visit Connor Yuan APRN, SKIDDER RUNNER [facility] 02/27/21 Office Visit Oswaldo Serrano MD [facility] 02/16/21 Office Visit Oswaldo Serrano MD [facility] Showing recent visits within past 365 days and meeting all other requirements Future Appointments No visits were found meeting these conditions. Showing future appointments within next 90 days and meeting all other requirements Passed - GFR greater than or equal to 30 in past 12 months GFR, EST. NONAFRICAN Date Value Ref Range Status 07/02/2021 60 >=60 Final documented in this encounter Plan of Treatment Upcoming Encounters Date Type Department Care Team (Late st Contact Info) Description 10/08/2024 2:15 PM AUTO CLUTCH REBUILDER Office Visit [facility] #2 [place] [phone] Orlin Urbina SENIOR WINDOWS SYSTEMS ADMINISTRATOR, SKIDDER RUNNER #[address] [place] [address] 10/18/2024 2:15 PM AUTO CLUTCH REBUILDER [facility]ment [facility] 1 [place] [phone] Oswaldo Serrano MD #[address] [address] Discharge Disposition: Discharged to home or Selfcare 11/29/2024 2:30 PM AUTO CLUTCH REBUILDER Office Visit [facility] - [place] #2 [place] [address] Oswaldo Serrano MD #[address] [address] 11/30/2024 3:00 PM AUTO CLUTCH REBUILDER Office Visit [facility] - [place] #2 [facility] [place] [address] Ok Jorge MD #2 [facility] [address] [place] [address] documented as of this encounter Visit Diagnoses Diagnosis Nocturnal enuresis OAB (overactive bladder) Hypertonicity of bladder documented in this encounter Additional Health Concerns Assessment Noted Time PHQ-9 Depression Total Score: 2 07/18/20 20 4:26 PM CDT documented as of this encounter Care Teams Supervisor Channel Process Relationship Specialty Start Date End Date Oswaldo Serrano MD #2 [facility] [address] [place] [address] PCP - General Family Medicine 05/19/17 Angel Crowe DPM #2 [facility] [address] [place] [address] Consulting Physician Podiatry 06/16/17 Mora Fritz [place] Behavioral Health Navigator 06/15/18 Ok Jorge MD #2 [facility] [address] [place] [address] Consulting Physician Endocrinology 05/12/22 Orlin Urbina APRN, SKIDDER RUNNER #[address] [place] [address] Nurse Practitioner Advanced Practice Nurse 11/09/22 documented as of this encounter
--- OUTSIDE RECORDS SUMMARY | 2024-10-07 00:25 | XMS_ITS | Encounter Summary ---
Author Organization [facility] Address [address] [place] [address] Phone Care Team Providers Care Primary Care Provider Name Role Phone Oswaldo Serrano MD Primary Care Provider [phone] Angel Crowe DPM Unavailable [phone] Mora Fritz Unavailable Unavailable Reason for Referral * Consult, Test & Initiate Treatment (Routine) - Canceled Specialty Diagnoses / Procedures Referred By Praful ferro Referred To Contact General Surgery Diagnoses Screening for colon cancer Oswaldo Serrano MD #2 [facility] [address] [place] [address] Phone: tel: fax: [facility] - General Surgery - [place] #2 [facility] [address] [place] [address] Phone: tel: fax: Referral ID Status Reason Start Date Expiration Date V isits Requested Visits Authorized [id number] Canceled 01/05/2022 1 1 Scheduling Instructions Loretta is being referred to Dr. Santiago for screening colonoscopy. Please contact patient for scheduling questions or concerns. Reason for Visit * Reason Comments Follow-up 3 month f/u Encounter Details Date Type Department Care Team ([facility] st Contact Info) Description 01/05/2022 3:15 PM CDT [facility] [place] [address] Oswaldo Serrano MD #[address] [address] Foul smelling urine (Primary Dx); Type 2 diabetes mellitus treated with insulin (HCC); B12 deficiency; Vitamin D deficiency; Hyperlipidemia, unspecified hyperlipidemia type; Screening for colon cancer Discharge Disposition: Discharged [...] Sign Reading Time Taken Comments Blood Pressure 122/76 01/05/2022 2:57 PM CDT Pulse 86 01/05/2022 2:57 PM CDT Temperature 36.4 ??C (97.5 ??F) 01/05/2022 2:57 PM CD T Respiratory Rate 16 01/05/2022 2:57 PM CDT Oxygen Saturation 95% 01/05/2022 2:57 PM CDT Inhaled Oxygen Concentration - - Weight 138.3 kg (304 lb 12.8 oz) 01/05/2022 2:57 PM CDT Height 167.6 cm (5' 6 ) 01/05/2022 2:57 PM CDT Body Mass Index 49.2 01/05/2022 2:57 PM CDT documented in this encounter Patient Instructions * Patient Instructions* Oswaldo Serrano MD - 01/05/2022 3:15 PM CDT 1. Do urine test today! 2. See all other doctors as scheduled. 3. Please complete survey if you receive one. 4. Get breast ultrasound & mammogram done as scheduled. 5. Fast 10 hours for labs - do within a week. 6. See Dr. Santiago for the colonoscopy. 7. Take Macrobid antibiotic for 7 days and drink plenty of water & cranberry juice. documented in this encounter Progress Notes * Sylvia Cain RMA - 01/05/2022 3:15 PM CDT Loretta Penn, 61 y.o., female is here for Follow-up (3 [...] needed for Cough. 10/07/21 Oswaldo Serrano MD albuterol 108 (90 Base) MCG/ACT Aerosol Solution 02/14/21 Nica Muniz MD Blood Glucose Monitoring Suppl Device Test blood glucose 4 times daily. E11.9, insulin dependent 12/19/19 Ok Jorge MD Blood Pressure Monitoring (Blood Pressure Cuff) [facility] Dispense battery-powered arm cuff (Dx: I10) 12/19/20 Oswaldo Serrano MD carvedilol (COREG) 25 MG Tablet 25 mg 2 times daily. 05/06/17 Nica Muniz MD Continuous Blood Gluc Automotive Sales Professional (Dexcom G6 Automotive Sales Professional) Device 12/03/21 Nica Muniz MD Continuous Blood Gluc Sensor (Dexcom G6 Sensor[facility] 12/03/21 Nica Muniz MD Continuous Blood Gluc Transmit (Dexcom G6 Transmitter) [facility] 12/03/21 Nica Muniz MD desmopressin (DDAVP) 0.2 MG Tablet Take 1 Tab by mouth nightly. Limit intake of liquids after the evening meal. 10/29/20 Carson Michel MD dilTIAZem (CARDIZEM) 30 MG Tablet TK 1 T PO TID 04/28/17 Nica Muniz MD DOK 100 MG Capsule TAKE ONE CAPSULE BY MOUTH TWICE DAILY 12/17/21 Oswaldo Serrano MD Entresto 24-26 MG Tablet 09/11/21 Nica Muniz MD escitalopram (LEXAPRO) 10 MG Tablet TAKE ONE TABLET BY MOUTH EVERY DAY 09/12/21 Oswaldo Serrano MD furosemide (LASIX) 40 MG Tablet Take 1 Tab by mouth daily. 11/12/20 Connor Yuan APRN, YUDI Glucose Blood Strip Test blood glucose 4x daily. E11.9, insulin dependent 03/12/21 Ok Jorge MD guaiFENesin-codeine (Cheratussin AC) 100-10 MG/5ML Syrup Take 5 mL by mouth every 4 hours as neededfor Cough. 05/14/21 Connor Yuan APRN, YUDI insulin aspart (NovoLOG FlexPen) 100 UNIT/ML Solution Pen-injector INJECT 16 UNITS AT BREAKFAST, 16UNITS AT LUNCH AND 14 UNITS AT DINNER -- ISF OF 1:30 IF GREATER THAN 140MG/DL UP TO 70 UNITS PER DAY 12/10/21 Ok Jorge MD insulin degludec (Tresiba FlexTouch) 100 UNIT/ML Solution Pen-injector 17 Units by Subcutaneous route every morning. 09/30/21 Ok Jorge MD insulin glargine (Lantus) 100 UNIT/ML Solution by Subcutaneous route every evening. ProviderNica MD Insulin Pen Needle (PEN NEEDLES 31GX5/16 ) 31G X 8 MM Misc Use to inject insulin 4x daily. 12/07/21 Ok Jorge MD Insulin Syringe-Needle U-100 (TRUEPLUS INSULIN SYRINGE) 31G X 5/16 0.5 ML Misc USE 4 TIMES DAILY 12/19/19 Ok Jorge MD Lancets Misc Test four times daily. E11.9, insulin dependent 12/19/19 Ok Jorge MD levothyroxine (SYNTHROID) 50 MCG Tablet TAKE ONE TABLET BY MOUTH EVERY MORNING 12/10/20 Oswaldo Serrano MD lisinopril (PRINIVIL, ZESTRIL) 5 MG Tablet TAKE ONE TABLET BY MOUTH EVERY DAY 08/06/21 Oswaldo Serrano MD Myrbetriq 50 MG TABLET SR 24 HR TAKE 1 TABLET BY MOUTH EVERY DAY 12/11/21 Orlin Urbina, SUPERVISOR ELECTRON TUBE PROCESSING, PLANTING MATERIAL UNLOADER nortriptyline (PAMELOR) 10 MG Capsule TAKE ONE CAPSULE BY MOUTH ONE TIME DAILY IN THE EVENING 09/12/21 Oswaldo Serrano MD omeprazole (PriLOSEC) 20 MG CAPSULE DELAYED RELEASE TAKE ONE CAPSULE BY MOUTH DAILY 01/22/21 Oswaldo Serrano MD potassium chloride SA (KLORCON M) 20 MEQ Tablet Controlled Release potassium chloride 20 mEq tablet,ER particles/crystals 10/10/1969 Yes ProviderNica MD predniSONE (DELTASONE) 20 MG Tablet Take 1 Tablet by mouth 2 times daily. 07/28/21 Yves Serrano MD rivaroxaban (Xarelto) 20 MG Tablet [...] Due ??? Pneumococcal Immunization (0-64 years) (1 of 2 - PPSV23) Never done ??? Zoster Immunization (1 of 2) Never done ??? Colorectal Cancer Screening Never done ??? Dilated Eye Exam 07/18/2019 ??? Pap Smear 06/06/2020 ??? Influenza Immunization (1) 06/10/2021 ??? SARS-COV-2 Immunization (3 - Booster for Pfizer series) 06/20/2021 Orders Pended: no The following BPA's have been addressed with the patient today: BMI, Flu, Pneumonia, Colonoscopy and Pap Loretta Penn is a 61 y.o. female with current BMI: Body mass index is 49.2 kg/m??. Interventions discussed including: encourage daily physical activity and well- balanced diet. * Oswaldo Serrano MD - 01/05/2022 3:15 PM CDT CHIEF COMPLAINT: Lower back pain. SUBJECTIVE: Patient is here today with her caregiver who says that she has a foul smelling urine and lower back pain. For depression, she is on Lexapro and is taking this compliantly. She has had an abnormal mammogram and has a followup ultrasound and diagnostic mammogram coming up. She has history of B12 deficiency. She sees Dr. Jorge. She has not had her A1c done yet which was ordered by Dr. Jorge back in August. For diabetes, she is on insulin. She is overdue for colonoscopy. I have reviewed all the systems. They are negative except as mentioned in HPI. OBJECTIVE: Vital Signs: Blood pressure 122/76, pulse 86, temperature 97.5, respirations 16, weight 304. General: Patient is talkative, cooperative, appropriately dressed. Chest: Clear to auscultation bilaterally. No wheezing. Heart: S1, S2, no murmurs. Neck: No carotid bruits auscultated. Psychiatric: Patient displays appropriate affect and speech. ASSESSMENT/PLAN: 1. Lower back pain. Will get a UA and culture on her today. In the meantime, I will start her on Macrobid 100 mg twice a day for 7 days. I told her to drink lots of water and cranberry juice. 2. Depression. Stable on Lexapro. She is to continue this. 3. Abnormal mammogram. She is to get the followup diagnostic mammogram and ultrasound done as scheduled. 4. B12 deficiency. I will check a level. 5. Type 2 diabetes mellitus. We will get A1c on her. She is to follow up with Dr. Jorge. 6. Screening for colon cancer. We will set her up for colonoscopy. 7. This patient is to follow up in 3 months. IJN: [id number] documented in this encounter Plan of Treatment Upcoming Encounters Date Type Department Care Team (Late st Contact Info) Description 10/08/2024 2:15 PM ELECTROENCEPHALOGRAM TECHNOLOGIST Office Visit [facility] #2 [place] [phone] Orlin Urbina APRN, PLANTING MATERIAL UNLOADER #2 [place] [address] 10/18/2024 2:15 PM ELECTROENCEPHALOGRAM TECHNOLOGIST Appointment [facility] Mammography [address] [place] [id number] Oswaldo Serrano MD #[address] [address] Discharge Disposition: Discharged to home or Selfcare 11/29/2024 2:30 PM ELECTROENCEPHALOGRAM TECHNOLOGIST Office Visit [facility] - Family Medicine - [place] #2 [place] [address] Oswaldo Serrano MD #2 [facility] [address] [place] [address] 11/30/2024 3:00 PM ELECTROENCEPHALOGRAM TECHNOLOGIST Office Visit [facility] - Endocrinology - [place] #2 [place] [address] Ok Jorge MD #2 [facility] [address] [place] [address] Scheduled Referrals Name Type Priority Associated Diagnoses Order Schedule COLORECTAL SURGICAL REFERRAL Outpatient Referral Routine Screening for colon cancer Expected: 01/05/2022 (Approximate), Expires: 01/05/2023 documented as of this encounter Procedures Procedure Name Priority Date/Time Associated Diagnosis Comments CMP (COMPREHENSIVE METABOLIC PANEL) Routine 09/06/2022 12:00 AM ELECTROENCEPHALOGRAM TECHNOLOGIST COMPLETE BLOOD COUNT (CBC) WITH DIFF Routine 09/06/2022 12:00 AM ELECTROENCEPHALOGRAM TECHNOLOGIST URINALYSIS REFLEX IF INDICATED BY ABNORMAL RESULTS Today 01/05/2022 4:01 PM CDT Foul smelling urine CULTURE, URINE Today 01/05/2022 4:01 PM CDT Foul smelling urine documented in this encounter Results * CMP (COMPREHENSIVE METABOLIC PANEL) (09/06/2022 12:00 AM ELECTROENCEPHALOGRAM TECHNOLOGIST) Blood 09/06/2022 Oswaldo Serrano MD CHEMISTRY ORDERABLES Final Result SCAN * COMPLETE BLOOD COUNT (CBC) WITH DIFF (09/06/2022 12:00 AM ELECTROENCEPHALOGRAM TECHNOLOGIST) Blood 09/06/2022 Oswaldo Serrano MD HEMATOLOGY ORDERABLES Final Result SCAN * (ABNORMAL) HEMOGLOBIN A1C W/ ESTIMATED GLUCOSE (01/21/2022 1:20 PM CDT) HGB-A1C 9.5(H) 4.0 - 6.0 % 01/21/2022 1:46 PM CDT [facility] Est Average Glucose 226.0 mg/dL 01/21/2022 1:46 PM CDT [facility] Blood Venipuncture / Unknown 01/21/2022 1:20 PM CDT 01/21/2022 1:23 PM CDT Narrative [facility] - 01/21/2022 1:46 PM CDT HEMOGLOBIN A1C: DIABETIC PATIENTS: WELL-CONTROLLED: ?? 6.2 - 7.0 INTERMEDIATE WELL-CONTROLLED: ??7.0 - 9.0 POORLY-CONTROLLED: ??>9.0 Oswaldo Serrano MD CHEMISTRY ORDERABLES Final Result Performing Organization Address City/[facility] Co de Phone Number [facility] #1 [place] [address] * VITAMIN D, 25 HYDROXY TOTAL (01/21/2022 1:20 PM CDT) VITAMIN D, 25 HYDROX 32 >=30 ng/mL 01/21/2022 2:09 PM CDT [facility] Blood Venipuncture / Unknown 01/21/2022 1:20 PM CDT 01/21/2022 1:23 PM CDT Narrative [facility] - 01/21/2022 2:09 PM CDT Published reference ranges for Vitamin D vary depending on time and place and method of testing, and on patient's age, sex, ethnicity and levels of other measured analytes such as parathormone, calcium and phosphorus. ??The result should be evaluated in conjunction with clinical findings and suspicions. [facility] [facility] Clinical Practice Guidelines: Status Vitamin D levels (ng/mL) Deficient <=20 At risk of inadequacy 21-29 Sufficient 30-100 Centers of Disease Control and Prevention Guidelines: Status Vitamin D levels (ng/mL) Deficient <13 At risk of inadequacy 13-19 Sufficient 20-50 Possibly harmful >50 References: [place] [facility], 2010 Dietary reference intakes for calcium and vitamin D. [place]: ??The National Academies Press. Eve M, Forrest N, Maksim BIRCH, et al., Evaluation, treatment, and prevention of Vitamin D deficiency: an Endocrinology Clinical Practice Guideline. JCEM 2011 96: 7 7572-9909. Faiza A, Manjinder C, Tyson D, et al., Vitamin D Status: ??[place], 2000- 1005, [facility] data brief, no. 59, MD Claudia: ??[facility] Statistics. 2010. Oswaldo Serrano MD CHEMISTRY ORDERABLES Final Result Performing Organization Address City/[facility]/ZIP Co de Phone Number [facility] #1 [place] [address] * (ABNORMAL) VITAMIN B12 (01/21/2022 1:20 PM CDT) VITAMIN B12 1,152(H) 243 - 894 pg/mL 01/21/2022 2:10 PM CDT [facility] Blood Venipuncture / Unknown 01/21/2022 1:20 PM CDT 01/21/2022 1:23 PM CDT Oswaldo Serrano MD CHEMISTRY ORDERABLES Final Result Performing Organization Address City/[facility]/ZIP Co de Phone Number [facility] #1 [place] [address] * THYROID STIMULATING HORMONE (TSH) (01/21/2022 1:20 PM CDT) TSH 3.730 0.270 - 4.200 mIU/L 01/21/2022 1:54 PM CDT [facility] Blood Venipuncture / Unknown 01/21/2022 1:20 PM CDT 01/21/2022 1:23 PM CDT Oswaldo Serrano MD CHEMISTRY ORDERABLES Final Result [facility] #1 [place] [address] * (ABNORMAL) CMP (COMPREHENSIVE METABOLIC PANEL) (01/21/2022 1:20 PM CDT) SODIUM 135(L) 136 - 144 mmol/L 01/21/2022 1:54 PM CDT [facility] POTASSIUM 4.5 3.5 - 5.1 mmol/L 01/21/2022 1:54 PM CDT [facility] CHLORIDE 98(L) 100 - 110 mmol/L 01/21/2022 1:54 PM CDT [facility] CO2, VENOUS 26 22 - 32 mmol/L 01/21/2022 1:54 PM CDT [facility] ANION GAP 15.5 8.0 - 20.0 mmol/L 01/21/2022 1:54 PM CDT [facility] GLUCOSE 289(H) 70 - 99 mg/dL 01/21/2022 1:54 PM CDT [facility] BUN 17 8 - 23 mg/dL 01/21/2022 1:54 PM CDT [facility] CREATININE, BLOOD 0.75 0.60 - 1.10 mg/dL 01/21/2022 1:54 PM CDT [facility] BUN/CREATININE RATIO 23(H) 12 - 20 ratio 01/21/2022 1:54 PM CDT [facility] TOTAL PROTEIN 7.2 6.0 - 8.3 g/dL 01/21/2022 1:54 PM CDT [facility] ALBUMIN 4.1 3.5 - 5.2 g/dL 01/21/2022 1:54 PM CDT [facility] Comment: The colormetric methods used for the determination of Albumin may lead to falsely elevated test results in patients suffering from renal failure or insufficiency due to interference with other proteins. A/G RATIO 1.3 1.0 - 2.0 01/21/2022 1:54 PM CDT [facility] CALCIUM 9.5 8.9 - 10.3 mg/dL 01/21/2022 1:54 PM CDT [facility] T BILI 0.5 <=1.2 mg/dL 01/21/2022 1:54 PM CDT [facility] SGOT (AST) 22 <=32 U/L 01/21/2022 1:54 PM CDT [facility] SGPT (ALT) 24 <=41 U/L 01/21/2022 1:54 PM CDT [facility] ALKALINE PHOSPHATASE 160(H) 35 - 105 U/L 01/21/2022 1:54 PM CDT [facility] GFR, EST. NONAFRICAN >60 >=60 01/21/2022 1:54 PM CDT [facility] GFR, EST. >60 >=60 022 1:54 PM CDT [facility] Comment: Creatinine Clearance is the preferred criteria for selecting drug dose adjustments in renally impaired patients. ??The GFR is provided as additional pertinent clinical information. GFR is reported in mL/min/1.73 sq m. IS THE PATIENT REQUIRED TO BE FASTING? No 01/21/2022 1:54 PM CDT [facility] Blood Venipuncture / Unknown 01/21/2022 1:20 PM CDT 01/21/2022 1:23 PM CDT us Oswaldo Serrano MD CHEMISTRY ORDERABLES Final Result [facility] #[address] [place] [address] * (ABNORMAL) LIPID PANEL (01/21/2022 1:20 PM CDT) CHOLESTEROL 157 <=200 mg/dL 01/21/2022 1:54 PM CDT [facility] TRIGLYCERIDES 161(H) <150 mg/dL 01/21/2022 1:54 PM CDT [facility] HDL CHOLESTEROL 41.8 >40 mg/dL 1:54 PM CDT [facility] LDL 83 5 - 130 mg/dL 01/21/2022 1:54 PM CDT [facility] VLDL 32 5 - 55 mg/dL 01/21/2022 1:54 PM CDT [facility] CHOL/HDL RATIO 3.8 0.0 - 4.4 01/21/2022 1:54 PM CDT [facility] NON-HDL CHOLESTEROL 115.2 <130 mg/dL 01/21/2022 1:54 PM CDT [facility] IS THE PATIENT REQUIRED TO BE FASTING? Yes 01/21/2022 1:54 PM CDT [facility] HAS THE PATIENT BEEN FASTING? Yes 01/21/2022 1:54 PM CDT [facility] Blood Venipuncture / Unknown 01/21/2022 1:20 PM CDT 01/21/2022 1:23 PM CDT Oswaldo Serrano MD CHEMISTRY ORDERABLES Final Result [facility] #[address] [place] [address] * CULTURE, URINE (01/05/2022 4:01 PM CDT) CULTURE RESULTS KLEBSIELLA PNEUMONIAE 01/08/2022 3:30 PM CDT [facility] CULTURE RESULTS ALSO MIXED GROWTH OF DISTAL URETHRA CONTAMINANTS. 01/08/2022 3:30 PM CDT [facility] Culture URINE SPECIMEN COLLECTION, CLEAN CATCH / Unknown Non-Phlebotomy Collection / Unknown 01/05/2022 4:01 PM CDT 01/05/2022 4:01 PM CDT Narrative Organism Antibiotic Method Susceptibility Klebsiella pneumoniae Ampicillin/sulbactam [facility] VITEK II 4 mcg/ml: Susceptible Klebsiella pneumoniae Cefazolin [facility] VITEK [...] [facility] AKI II <=20 mcg/ml: Susceptible us Oswaldo Serrano MD MICROBIOLOGY - GENERAL MAGDALENO MCINTOSH Final Result [facility] [address] [id number], * (ABNORMAL) URINALYSIS REFLEX IF INDICATED BY ABNORMAL RESULTS (01/05/2022 4:01 PM CDT) SPECIFIC GRAVITY 1.015 1.003 - 1.030 01/05/2022 5:04 PM CDT [facility] URINE PH 5.0 5.0 - 9.0 01/05/2022 5:04 PM CDT [facility] WBC ESTERASE Negative Negative 01/05/2022 5:04 PM CDT [facility] NITRITE Negative Negative 01/05/2022 5:04 PM CDT [facility] PROTEIN, RANDOM URINE Negative Negative 01/05/2022 5:04 PM CDT [facility] URINE GLUCOSE, QUAL Negative Negative 01/05/2022 5:04 PM CDT [facility] URINE KETONES Negative Negative 01/05/2022 5:04 PM CDT [facility] UROBILINOGEN Normal Normal mg/dL 01/05/2022 5:04 PM CDT [facility] URINE BLOOD 25 /uL(A) Negative jolene/ul 01/05/2022 5:04 PM CDT [facility] URINALYSIS COLOR Yellow 01/06/20 5:[address] [facility] URINALYSIS CLARITY Clear 01/05/2022 5:04 PM CDT [facility] WBC (Urine) 0-5 Negative, 0-5 /hpf 01/05/2022 5:04 PM CDT [facility] URINE RBC'S 3-5(A) Negative, 0-2 /hpf 01/05/2022 5:04 PM CDT [facility] EPITHELIAL CELLS Negative /lpf 01/06/20 5:04 PM CDT [facility] BACTERIA, URINE Negative Negative /hpf 01/05/2022 5:04 PM CDT [facility] Urine URINE SPECIMEN COLLECTION, CLEAN CATCH / Unknown Non-Phlebotomy Collection / Unknown 01/05/2022 4:01 PM CDT 01/05/2022 4:01 PM CDT Oswaldo Serrano MD URINE ORDERABLES Final Resu lt [facility] [address] [place] [address] documented in this encounter Visit Diagnoses Diagnosis Foul smelling urine- Primary Other nonspecific finding on examination of urine Type 2 diabetes mellitus treated with insulin (HCC) B12 deficiency Other B-complex deficiencies Vitamin D deficiency Unspecified vitamin D deficiency Hyperlipidemia, unspecified hyperlipidemia type Screening for colon cancer Special screening for malignant neoplasms, colon documented in this encounter Additional Health Concerns Assessment Noted Time PHQ-9 Depression Total Score: 2 07/18/20 20 4:26 PM CDT documented as of this encounter Care Teams Primary Care Provider Relationship Specialty Start Date End Date Oswaldo Serrano MD #[address] [address] PCP - General Family Medicine 05/19/17 Angel Crowe DPM #[address] [address] Consulting Physician Podiatry 06/16/17 Mora Fritz Behavioral Health Navigator 06/15/18 documented as of this encounter
--- OUTSIDE RECORDS SUMMARY | 2024-10-07 00:25 | XMS_ITS | Encounter Summary ---
Author Organization [facility] Address [address] [place] [address] Phone Care Team Providers Care Lead C Developer Name Role Phone Oswaldo Serrano MD Primary Care Provider [phone] Angel Crowe DPM Unavailable [phone] Mora Fritz Unavailable Unavailable Reason for Referral * Radiology Services (Routine) - Closed Specialty Diagnoses / Procedures Referred By Praful ferro Referred To Contact Radiology Diagnoses Abnormal mammogram Procedures SHABANA DIAG LEFT DIGITAL W CAD Oswaldo Serrano MD #[address] [address] Phone: tel: fax: Referral ID Status Reason Start Date Expiration Date Visits Re quested Visits Authorized [id number] Closed 10/28/2021 1 1 GE INSPECTOR Encounter Details Date Type Department Care Team (Late st Contact Info) Description 10/28/2021 Telephone [facility] - Family Medicine [facility] [address] [place] [address] Oswaldo Serrano MD [address] [address] Social History Tobacco Use Types Packs/Day Years [...] COVID-19? No / Unsure 10/27/2021 3:19 PM BRIDGE INSPECTOR documented as of this encounter Miscellaneous Notes * Telephone Encounter - Oswaldo Serrano MD - 10/28/2021 12:43 PM BRIDGE INSPECTOR ----- Message from RT Chelly Koenig (R)) sent at 10/28/2021 11:56 AM BRIDGE INSPECTOR ----- Regarding: Additional imaging Additional breast imaging is needed on L[place]ta [place]. Please send the following orders for ourbreast navigator to schedule them for their exam Left Diag Mamm ([id number]) #2D is best for calcifications!# Left Breast Ultrasound ([id number]) Thank you!! -Debi HARMON (R)) GE INSPECTOR documented in this encounter Plan of Treatment Upcoming Encounters Date Type Department Care Team (Late st Contact Info) Description 10/08/2024 2:15 PM BRIDGE INSPECTOR Office Visit [facility] #2 [facility] [place] [address] Orlin Urbina APRN, BELLSTAND ATTENDANT #2 [place] [address] 10/18/2024 2:15 PM BRIDGE INSPECTOR [facility] 1 [place] [address] Oswaldo Serrano MD #[address] [place] [address] Discharge Disposition: Discharged to home or Selfcare 11/29/2024 2:30 PM BRIDGE INSPECTOR [facility] Visit [facility] - [place] #2 [place] [address] Oswaldo Serrano MD #[address] [address] 11/30/2024 3:00 PM BRIDGE INSPECTOR Office Visit [facility] - Endocrinology - [place] #2 [place] [address] Ok Jorge MD #[address] [address] documented as of this encounter Results * SHABANA DIAG LEFT [...] is made to exams dated: ??10/27/2021, 10/17/2018 [facility], and 07/07/2015 [facility]. ?? BREAST TISSUE:There are scattered fibroglandular [...] Patricia Dickson M.D. ? ab/:01/29/2022 14:42:58 ?? Printed Circuit Board Designer(s): Alicia ??RT Osorio(R)(M), [facility] letter sent: Birad 3 Followup ?? [...] is made to exams dated: 10/27/2021, 10/17/2018 [facility], and 07/07/2015 [facility]. BREAST TISSUE:There are scattered fibroglandular densities [...] signed by: Patricia Dickson M.D. ab/:01/29/2022 14:42:58 Printed Circuit Board Designer(s): Alicia Ac RT(R)(M), [facility] letter sent: Birad 3 Followup Reading location: [place] [facility]: 3 Probably benign Oswaldo Serrano MD IMG MAMMO ORDERABLES Final Result documented in this encounter Visit Diagnoses Diagnosis Abnormal mammogram- Primary Abnormal mammogram, unspecified Abnormal mammogram Abnormal mammogram, unspecified documented in this encounter Additional Health Concerns Assessment Noted Time PHQ-9 Depression Total Score: 2 07/18/20 20 4:26 PM CDT documented as of this encounter Care Teams Lead C Developer Relationship Specialty Start Date End Date Oswaldo Serrano MD #[address] [address] PCP - General Family Medicine 05/19/17 Angel Crowe DPM #[address] [address] Consulting Physician Podiatry 06/16/17 Mora Fritz Behavioral Health Navigator 06/15/18 documented as of this encounter
--- OUTSIDE RECORDS SUMMARY | 2024-10-07 00:26 | XMS_ITS | Encounter Summary ---
Author Organization [facility] Address [address] [place] [address] Phone Care Team Providers Care Package Sealer Machine Name Role Phone Oswaldo Serrano MD Primary Care Provider Angel Crowe DPM Unavailable [phone] Mora Fritz Unavailable Unavailable Reason for Visit * Reason Onset Date Comments Medication Management 09/29/2021 Insulin Encounter Details Date Type Department Care Team (Late st Contact Info) Description 09/29/2021 Telephone [facility] #2 [place] [address] Ok Jorge MD #[address] [address] Medication Management (Insulin) Social History Tobacco Use Types Packs/Day Years [...] Telephone Encounter - Ok Jorge MD - 09/29/2021 11:27 PM CST Rx of Tresiba and NovoLog sent [employer] [facility] * Telephone Encounter - Ynes Zuniga, RN - 09/29/2021 3:32 PM [employer] DEAN Lantus and Humalog not covered by insurance, no alternatives suggested. [employer] documented in this encounter Plan of Treatment Upcoming Encounters Date Type Department Care Team (Late st Contact Info) Description 10/08/2024 2:15 PM HEALTH SCIENCES DEAN Office Visit [facility] #2 [place] [address] Orlin Urbina, COMPUTER METHODS ANALYST, BUNDLE CLERK #2 [place] [address] 10/18/2024 2:15 PM HEALTH SCIENCES DEAN Appointment [facility] Mammography 1 [place] [address] Oswaldo Serrano MD #[address] [address] Discharge Disposition: Discharged to home or Selfcare 11/29/2024 2:30 PM HEALTH SCIENCES DEAN Office Visit [facility] - Family Medicine [facility] #2 [place] [address] Oswaldo Serrano MD #[address] [address] 11/30/2024 3:00 PM HEALTH SCIENCES DEAN Office Visit [facility] - Endocrinology [facility] #2 [place] [address] Ok Jorge MD #[address] [address] documented as of this encounter Visit Diagnoses Not on filedocumented in this encounter Additional Health Concerns Assessment Noted Time PHQ-9 Depression Total Score: 2 07/18/20 20 4:26 PM CDT documented as of this encounter Care Teams Package Sealer Machine Relationship Specialty Start Date End Date Oswaldo Serrano MD #[address] [address] PCP - General Family Medicine 05/19/17 Angel Crowe DPM #[address] [address] Consulting Physician Podiatry 06/16/17 Mora Fritz [place] Behavioral Health Navigator 06/15/18 documented as of this encounter
--- OUTSIDE RECORDS SUMMARY | 2024-10-07 00:26 | XMS_ITS | Encounter Summary ---
Author Organization [facility] Address [address] [place] [address] Phone Care Team Providers Care Coffee Weigher Name Role Phone Oswaldo Serrano MD Primary Care Provider [phone] Angel Crowe DPCiara Unavailable Mora Fritz Unavailable Unavailable Ok Jorge MD Unavailable Orlin Urbina APRN, DYE MIXER Unavailable Reason for Visit * Reason Comments Medication Refill Encounter Details Date Type Department Care Team (Late st Contact Info) Description 09/11/2021 Refill [facility] - [place] #2 [place] [address] Oswaldo Serrano MD #[address] [address] Medication Refill Social History Tobacco Use Types [...] Telephone Encounter - Mica Morales RN - 09/11/2021 3:31 PM CST Medication failed the protocol, provider to review and approve the medication order if appropriate. Requested Prescriptions Pending Prescriptions Disp Refills nortriptyline (PAMELOR) 10 MG Capsule [Pharmacy Med Name: NORTRIPTYLIN 10MG] 90 Capsule 2 Sig: TAKE ONE CAPSULE BY MOUTH ONE TIME DAILY IN THE EVENING [facility] Not Delegated - Psychiatry: Antidepressants - Heterocyclics (TCAs) Failed - 09/11/2021 1:53 PM Failed - This refill cannot be delegated Passed - Valid encounter within last 12 months Past Office Visits Recent Outpatient Visits 1 month ago URI, acute [facility] - Oswaldo Moreno MD 4 months ago Acute bronchitis, unspecified organism [facility] Family [facility] - Connor Hutchinson APRN, YUDI 6 months ago [facility] 6 months [facility] 8 months ago [facility]TI [facility] Hutch[facility] APRN, YUDI Upcoming Appointments Future Appointments In 3 weeks Oswaldo Serrano MD [facility] - Family Medicine - MARLI [place]n In 1 month Ok Jorge MD [facility] - Endocrinology - [facility] - Recent and Past Visits Recent Visits Date Type Provider Dept 07/28/21 Telemedicine Oswaldo Serrano MD [facility] 05/14/21 Office Visit Connor Yuan APRN, YUDI [place] 02/27/21 Office Visit Oswaldo Serrano MD [facility] 02/16/21 Office Visit Oswaldo Serrano, MD [facility] 01/14/21 Office Visit Connor Yuan APRN, YUDI [place] 12/19/20 Office Visit Oswaldo Serrano MD [facility] 12/18/20 Telemedicine Oswaldo Serrano MD [facility] 12/08/20 Telemedicine Oswaldo Serrano MD [facility] 11/07/20 Telemedicine Connor Yuan APRN, YUDI [facility] 10/09/20 Office Visit Oswaldo Serrano MD [facility] Showing recent visits within past 460 days with a meds authorizing provider and meeting all other requirements Future Appointments Date Type Provider Dept 10/07/21 Appointment Oswaldo Serrano MD [facility] Showing future appointments within next 90 days with a meds authorizing provider and meeting all other requirements Passed - Last BP in normal range BP Readings from Last 1 Encounters: 07/02/21 108/71 escitalopram (LEXAPRO) 10 MG Tablet [Pharmacy Med Name: ESCITALOPRAM 10MG] 90 Tablet 2 Sig: TAKE ONE TABLET BY MOUTH EVERY DAY [facility] (6 Month Refill Only) Protocol Failed - 09/11/2021 1:53 PM Failed - Has an encounter in the past 6 months with a depression, anxiety, adjustment disorder, OCD, or PTSD visit diagnosis Passed - Visit with relevant provider in past 6 months or upcoming 90 days Recent Visits Date Type Provider Dept 07/28/21 Telemedicine Oswaldo Serrano MD [facility] 05/14/21 Office Visit Connor Yuan APRN, YUDI [place] Showing recent visits within past 182 days and meeting all other requirements Future Appointments Date Type Provider Dept 10/07/21 Appointment Oswaldo Serrano MD [facility] Showing future appointments within next 90 days and meeting all other requirements Passed - Patient has established therapy with SSRI for at least 6 months R RUNNER documented in this encounter Plan of Treatment Upcoming Encounters Date Type Department Care Team (Late st Contact Info) Description 10/08/2024 2:15 PM EDGER RUNNER Office Visit [facility]IAN [facility] UROLOG[facility] #2 [place] [address] Orlin Urbina, MORTGAGE OPERATIONS MANAGER, DYE MIXER #2 [place] [address] 10/18/2024 2:15 PM EDGER RUNNER [facility] 1 [place] [address] Oswaldo Serrano MD #[address] [address] Discharge Disposition: Discharged to home or Selfcare 11/29/2024 2:30 PM EDGER RUNNER [facility] Visit [facility] - [place] #2 [place] [address] Oswaldo Serrano MD #2 [facility] [address] [place] [address] 11/30/2024 3:00 PM EDGER RUNNER Office Visit [facility]ology - [place] #2 [place] [address] Ok Jorge MD #[address] [place] [address] documented as of this encounter Visit Diagnoses Not on filedocumented in this encounter Additional Health Concerns Assessment Noted Time PHQ-9 Depression Total Score: 2 07/18/20 20 4:26 PM CDT documented as of this encounter Care Teams Coffee Weigher Relationship Specialty Start Date End Date Oswaldo Serrano MD #2 [facility] [address] [place] [address] PCP - General Family Medicine 05/19/17 Angel Crowe DPM #2 [facility] [address] [place] [address] Consulting Physician Podiatry 06/16/17 Mora Fritz [place] Behavioral Health Navigator 06/15/18 Ok Jorge MD #2 [facility] [address] [place] [address] Consulting Physician Endocrinology 05/12/22 Orlin Urbina APRN, DYE MIXER #2 [place] [address] Nurse Practitioner Advanced Practice Nurse 11/09/22 documented as of this encounter
--- OUTSIDE RECORDS SUMMARY | 2024-10-07 00:26 | XMS_ITS | Encounter Summary ---
Author Organization [employer] Care Team Providers Care Floor Polisher Name Role Phone Oswaldo Serrano MD Primary Care Provider [phone] Angel Crowe DPM Unavailable [phone] Mora Fritz Unavailable Unavailable Encounter Details Date Type Department Care Team (Latest Contact Info) Description 03/17/2021 Travel Social History Tobacco Use Types Packs/Day [...] have Coronavirus / COVID-19? No / Unsure 03/17/2021 3:34 PM CDT documented as of this encounter Plan of Treatment Upcoming Encounters Date Type Department Care Team (Late st Contact Info) Description 10/08/2024 2:15 PM PARANORMAL INVESTIGATOR Office Visit [facility] #2 [place] [address] Orlin Urbina, HAT FINISHING MATERIALS PREPARER, TUBE TEST TECHNICIAN #2 [place] [address] 10/18/2024 2:15 PM PARANORMAL INVESTIGATOR [facility]ment [facility] 1 [place] [address] Oswaldo Serrano MD #2 [facility] [address] [place] [address] Discharge Disposition: Discharged to home or Selfcare 11/29/2024 2:30 PM PARANORMAL INVESTIGATOR [facility] - [place] #2 [place] [address] Oswaldo Serrano MD #2 [facility] [address] [place] [address] 11/30/2024 3:00 PM PARANORMAL INVESTIGATOR Office Visit [facility] - Endocrinology - [place] #2 [place] [address] Ok Jorge MD #2 [facility] [address] [place] [address] documented as of this encounter Visit Diagnoses Not on filedocumented in this encounter Additional Health Concerns Assessment Noted Time PHQ-9 Depression Total Score: 2 07/18/20 20 4:26 PM CDT documented as of this encounter Care Teams Floor Polisher Relationship Specialty Start Date End Date Oswaldo Serrano MD #[address] [address] PCP - General Family Medicine 05/19/17 Angel Crowe DPM #[address] [address] Consulting Physician Podiatry 06/16/17 Mora Fritz Behavioral Health Navigator 06/15/18 documented as of this encounter
--- OUTSIDE RECORDS SUMMARY | 2024-10-07 00:26 | XMS_ITS | Encounter Summary ---
Author Organization [facility] Address [address] [place] [address] Phone Care Team Providers Care Billet Inspector Name Role Phone Osawldo Serrano MD Primary Care Provider Angel Crowe DPM Unavailable Mora Fritz Unavailable Unavailable Reason for Visit * Reason Onset Date Comments Results 03/10/2021 Encounter Details Date Type Department Care Team (Late st Contact Info) Description 03/10/2021 Telephone [facility] - Family Medicine [facility] #2 [place] [address] Oswaldo Serrano MD #[address] [address] Results Social History Tobacco Use Types Packs/Day [...] have Coronavirus / COVID-19? No / Unsure 03/06/2021 7:39 AM CDT documented as of this encounter Miscellaneous Notes * Telephone Encounter - Zainab Roblero RN - 03/10/2021 2:23 PM CDT Spoke with Dilia neff, to inform. * Telephone Encounter - Zainab Roblero RN - 03/10/2021 2:20 PM CDT ----- Message from Oswaldo Serrano MD sent at 03/07/2021 12:32 AM CDT ----- Let her know she has a UTI and I have called in Levaquin antibiotic. Tell her to drink plenty of water & cranberry juice. Thanks! documented in this encounter Plan of Treatment Upcoming Encounters Date Type Department Care Team (Late st Contact Info) Description 10/08/2024 2:15 PM BEAD FORMING MACHINE SET UP OPERATOR Office Visit [facility]Y #2 [place] [address] Orlin Urbina MARKING MACHINE TENDER, MANAGER ORACLE DATABASE #2 [place] [address] 10/18/2024 2:15 PM BEAD FORMING MACHINE SET UP OPERATOR [facility]ment [facility] 1 [place] [address] Oswaldo Serrano MD #[address] [address] Discharge Disposition: Discharged to home or Selfcare 11/29/2024 2:30 PM BEAD FORMING MACHINE SET UP OPERATOR Office Visit [facility] - Family Medicine [facility] #2 [place] [address] Oswaldo Serrano MD #[address] [place] [address] 11/30/2024 3:00 PM BEAD FORMING MACHINE SET UP OPERATOR Office Visit [facility] - Endocrinology [facility] #2 [place] [address] Ok Jorge MD #[address] [place] [address] documented as of this encounter Visit Diagnoses Not on filedocumented in this encounter Additional Health Concerns Assessment Noted Time PHQ-9 Depression Total Score: 2 07/18/20 20 4:26 PM CDT documented as of this encounter Care Teams Billet Inspector Relationship Specialty Start Date End Date Oswaldo Serrano MD #[address] [address] PCP - General Family Medicine 05/19/17 Angel Crowe DPM #[address] [address] Consulting Physician Podiatry 06/16/17 Mora Fritz Behavioral Health Navigator 06/15/18 documented as of this encounter
--- OUTSIDE RECORDS SUMMARY | 2024-10-07 00:26 | XMS_ITS | Encounter Summary ---
Author Organization [facility] Address [address] [place] [address] Phone Care Team Providers Care Resume Writer Name Role Phone Oswaldo Serrano MD Primary Care Provider Angel Crowe DPM Unavailable Mora Fritz Unavailable Unavailable Reason for Visit * Reason Onset Date Comments Labs Only 08/12/2021 Encounter Details Date Type Department Care Team (Late st Contact Info) Description 08/12/2021 Telephone [facility] - Endocrinology - [place] #2 [place] [address] Ok Jorge MD #[address] [address] Labs Only Social History Tobacco Use Types Packs/Day [...] have Coronavirus / COVID-19? No / Unsure 07/28/2021 1:43 PM CDT documented as of this encounter Miscellaneous Notes * Telephone Encounter - Ok Jorge MD - 08/12/2021 4:56 PM CDT Lab order documented in this encounter Plan of Treatment Upcoming Encounters Date Type Department Care Team (Late st Contact Info) Description 10/08/2024 2:15 PM CARDIAC CATH LAB RADIOLOGY TECHNOLOGIST Office Visit [facility] UROLOGY #2 [place] [address] Orlin Urbina APRN, SUPERVISOR CONTACT LENS #2 [place] [address] 10/18/2024 2:15 PM CARDIAC CATH LAB RADIOLOGY TECHNOLOGIST Appointment [facility] Mammography 1 [place] [address] Oswaldo Serrano MD #[address] [address] Discharge Disposition: Discharged to home or Selfcare 11/29/2024 2:30 PM CARDIAC CATH LAB RADIOLOGY TECHNOLOGIST Office Visit [facility] - Family Medicine [facility] #2 [place] [address] Oswaldo Serrano MD #[address] [address] 11/30/2024 3:00 PM CARDIAC CATH LAB RADIOLOGY TECHNOLOGIST Office Visit [facility] - Endocrinology - [place] #2 [place] [address] Ok Jorge MD #[address] [address] Scheduled Orders Name Type Priority Associated Diagnoses Orde r Schedule HEMOGLOBIN A1C W/ ESTIMATED GLUCOSE Lab Routine Type 2 diabetes mellitus with diabetic polyneuropathy, with long-term current use of insulin (HCC) Expected: 11/12/2021, Expires: 01/10/2022 documented as of this encounter Visit Diagnoses Diagnosis Type 2 diabetes mellitus with diabetic polyneuropathy, with long-term current use of insulin (HCC)- Primary documented in this encounter Additional Health Concerns Infection Onset Date Last Indicated Resolved Time COVID - 19 07/28/2021 07/29/2021 08/17/2021 12:1 6 AM CARDIAC CATH LAB RADIOLOGY TECHNOLOGIST Assessment Noted Time PHQ-9 Depression Total Score: 2 07/18/20 20 4:26 PM CDT documented as of this encounter Care Teams Resume Writer Relationship Specialty Start Date End Date Oswaldo Serrano MD #[address] [address] PCP - General Family Medicine 05/19/17 Angel Crowe DPM #[address] [address] Consulting Physician Podiatry 06/16/17 Mora Fritz Behavioral Health Navigator 06/15/18 documented as of this encounter
--- OUTSIDE RECORDS SUMMARY | 2024-10-07 00:26 | XMS_ITS | Encounter Summary ---
Author Organization [employer] Care Team Providers Care Master Scheduler Name Role Phone Oswaldo Serrano MD Primary Care Provider [phone] Angel Crowe DPM Unavailable [phone] Mora Fritz Unavailable Unavailable Encounter Details Date Type Department Care Team (Latest Contact Info) Description 07/02/2021 Travel Social History Tobacco Use Types Packs/Day [...] have Coronavirus / COVID-19? No / Unsure 07/02/2021 6:26 PM CDT documented as of this encounter Plan of Treatment Upcoming Encounters Date Type Department Care Team (Late st Contact Info) Description 10/08/2024 2:15 PM ELEMENTARY CLASSROOM TEACHER Office Visit [facility] UROLOGY #2 [place] [address] Orlin Urbina, COURT LIAISON, LEGAL REFEREE #2 [place] [address] 10/18/2024 2:15 PM ELEMENTARY CLASSROOM TEACHER [facility]ment [facility] 1 [place] [address] Oswaldo Serrano MD #[address] [facility] [address] [place] [address] Discharge Disposition: Discharged to home or Selfcare 11/29/2024 2:30 PM ELEMENTARY CLASSROOM TEACHER [facility] Visit [facility] - Family Medicine - [place] #2 [place] [address] Oswaldo Serrano MD #[address] [facility] [address] [place] [address] 11/30/2024 3:00 PM ELEMENTARY CLASSROOM TEACHER Office Visit [facility] - Endocrinology - [place] #2 [place] [address] Ok Jorge MD #[address] [facility] [address] [place] [address] documented as of this encounter Visit Diagnoses Not on filedocumented in this encounter Additional Health Concerns Assessment Noted Time PHQ-9 Depression Total Score: 2 07/18/20 20 4:26 PM CDT documented as of this encounter Care Teams Master Scheduler Relationship Specialty Start Date End Date Oswaldo Serrano MD #[address] [address] PCP - General Family Medicine 05/19/17 Angel Crowe DPM #[address] [address] Consulting Physician Podiatry 06/16/17 Mora Fritz Behavioral Health Navigator 06/15/18 documented as of this encounter
--- OUTSIDE RECORDS SUMMARY | 2024-10-07 00:26 | XMS_ITS | Encounter Summary ---
Author Organization [employer] Care Team Providers Care Cinema Or Theatre Manager Name Role Phone Oswaldo Serrano MD Primary Care Provider [phone] Angel Crowe DPM Unavailable [phone] Mora Fritz Unavailable Unavailable Encounter Details Date Type Department Care Team (Latest Contact Info) Description 05/14/2021 Travel Social History Tobacco Use Types Packs/Day [...] have Coronavirus / COVID-19? No / Unsure 05/14/2021 12:45 PM CDT documented as of this encounter Plan of Treatment Upcoming Encounters Date Type Department Care Team (Late st Contact Info) Description 10/08/2024 2:15 PM TECHNICAL DOCUMENTATION SPECIALIST Office Visit [facility] UROLOGY #2 [place] [address] Orlin Urbina, SENIOUR INSIGHT MANAGER, BOAT ENGINE MECHANIC #2 [place] [address] 10/18/2024 2:15 PM TECHNICAL DOCUMENTATION SPECIALIST [facility]ointment [facility] 1 [place] [phone] Oswaldo Serrano MD #2 [facility] [address] [place] [address] Discharge Disposition: Discharged to home or Selfcare 11/29/2024 2:30 PM TECHNICAL DOCUMENTATION SPECIALIST Office Visit [facility] - [place] #2 [place] [address] Oswaldo Serrano MD #2 [facility] [address] [place] [address] 11/30/2024 3:00 PM TECHNICAL DOCUMENTATION SPECIALIST Office Visit [facility] - [place] #2 [place] [address] Ok Jorge MD #2 [facility] [address] [place] [address] documented as of this encounter Visit Diagnoses Not on filedocumented in this encounter Additional Health Concerns Assessment Noted Time PHQ-9 Depression Total Score: 2 07/18/20 20 4:26 PM CDT documented as of this encounter Care Teams Cinema Or Theatre Manager Relationship Specialty Start Date End Date Oswaldo Serrano MD #[address] [address] PCP - General Family Medicine 05/19/17 Angel Crowe DPM #[address] [address] Consulting Physician Podiatry 06/16/17 Mora Fritz Behavioral Health Navigator 06/15/18 documented as of this encounter
--- OUTSIDE RECORDS SUMMARY | 2024-10-07 00:26 | XMS_ITS | Encounter Summary ---
Author Organization [facility] Address [address] [facility] [place] [address] Phone Care Team Providers Care Tipple Greaser Name Role Phone Oswaldo Serrano MD Primary Care Provider Angel Crowe DPM Unavailable [phone] Mora Fritz Unavailable Unavailable Reason for Visit * Reason Onset Date Comments Hemoptysis 05/07/2021 Diarrhea 05/07/2021 Back Pain 05/07/2021 Respiratory Distress 05/07/2021 Encounter Details Date Type Department Care Team (Late st Contact Info) Description 05/07/2021 Nurse Triage [facility] [address] [place] [address] Oswaldo Serrano MD #[address] [address] Hemoptysis; Diarrhea; Back Pain; Respiratory Distress Social History Tobacco Use Types Packs/Day Years [...] have Coronavirus / COVID-19? No / Unsure 04/14/2021 2:59 PM CDT documented as of this encounter Miscellaneous Notes * Telephone Encounter - Oswaldo Serrano MD - 05/09/2021 10:09 PM CDT Thanks for sending her to the ER! * Telephone Encounter - Alvina Thomas RN - 05/07/2021 5:00 PM CDT Patient triages to ED. Sister is agreeable to going. Advised sister to give us a call back once discharged so that we can make a follow up appointment for them. Sister voices understanding. Allergies, medications and pharmacy verified. * Telephone Encounter - Alvina Thomas RN - 05/07/2021 4:47 PM CDT SITUATION: diarrhea BACKGROUND: Started yesterday ASSESSMENT: Symptom Description / Location: Patients sister calling in stating patient isn't feeling well. States she has had diarrhea. Patient is also complaining of back pain. States it is her middle-lower back around the waist line. Patient also complaining of neck pain. Patient also states that this morning when she coughed, she coughed up some blood. Sister states itlooked like straight blood, not mixed with saliva. States she wasn't eating anything before this happened. Patient is also coughing up phlegm. Patient also threw up a little bit last night. Patient reporting that she is having a hard time breathing. Sister states they checked her oxygen and it is at 97%. Denies wheezing. Pain: moderate Temp (route / time): denies fever Treatment / Response: Pedialyte and tylenol. RECOMMENDATION: See care advice and disposition for Guideline First positive answer recorded, all responses to prior questions were negative. If symptoms increase, change or if new symptoms develop, call your HCP or call back. Recommendations were based on caller information and is not a diagnosis. Verified and reviewed all triage information with caller. Reason for Disposition ??? Vomiting and pain over lower ribs of back (i.e., flank - kidney area) Protocols used: BACK PAIN-A-OH documented in this encounter Plan of Treatment Upcoming Encounters Date Type Department Care Team (Late st Contact Info) Description 10/08/2024 2:15 PM DATA ENTRY 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 Office Visit [facility] UROLOGY #2 [place] [address] Orlin Urbina APRN, SHUTDOWN PLANNER #2 [place] [address] 10/18/2024 2:15 PM DATA ENTRY 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 Appointment [facility] M[facility] 1 [place] [address] Oswaldo Serrano MD #[address] [address] Discharge Disposition: Discharged to home or Selfcare 11/29/2024 2:30 PM DATA ENTRY 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 Office Visit [facility] #2 [place] [address] Osawldo Serrano MD #2 [facility] [address] [place] [address] 11/30/2024 3:00 PM DATA ENTRY 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 Office Visit [facility] - [place] #2 [place] [address] Ok Jorge MD #[address] [address] documented as of this encounter Visit Diagnoses Not on filedocumented in this encounter Additional Health Concerns Assessment Noted Time PHQ-9 Depression Total Score: 2 07/18/20 20 4:26 PM CDT documented as of this encounter Care Teams Tipple Greaser Relationship Specialty Start Date End Date Oswaldo Serrano MD #[address] [address] PCP - General Family Medicine 05/19/17 Angel Crowe DPM #[address] [address] Consulting Physician Podiatry 06/16/17 Mora Fritz Behavioral Health Navigator 06/15/18 documented as of this encounter
--- OUTSIDE RECORDS SUMMARY | 2024-10-07 00:26 | XMS_ITS | Encounter Summary ---
Author Organization [facility] Address [address] [place] [address] Phone Care Team Providers Care Customer Engagement Manager Name Role Phone Oswaldo Serrano MD Primary Care Provider Angel Crowe DPM Unavailable Mora Fritz Unavailable Unavailable Encounter Details Date Type Department Care Team (Late st Contact Info) Description 03/07/2021 Telephone [facility] #2 [place] [address] Oswaldo Serrano MD #[address] [address] Social History Tobacco Use Types Packs/Day Years [...] Telephone Encounter - Oswaldo Serrano MD - 03/07/2021 1:13 AM CDT DONE. documented in this encounter Plan of Treatment Upcoming Encounters Date Type Department Care Team (Late st Contact Info) Description 10/08/2024 2:15 PM PAROLE OFFICER Office Visit [facility] UROLOGY #2 [place] [address] Orlin Urbina APRN, ROOFING SALES 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 #2 [place] [address] 10/18/2024 2:15 PM PAROLE OFFICER Appointment [facility] Mammography 1 [place] [address] Oswaldo Serrano MD #[address] [address] Discharge Disposition: Discharged to home or Selfcare 11/29/2024 2:30 PM PAROLE OFFICER Office Visit [facility] #2 [place] [address] Oswaldo Serrano MD #[address] [address] 11/30/2024 3:00 PM PAROLE OFFICER Office Visit [facility] - [place] #2 [place] [address] Ok Jorge MD #[address] [address] documented as of this encounter Visit Diagnoses Not on filedocumented in this encounter Additional Health Concerns Assessment Noted Time PHQ-9 Depression Total Score: 2 07/18/20 20 4:26 PM CDT documented as of this encounter Care Teams Customer Engagement Manager Relationship Specialty Start Date End Date Oswaldo Serrano MD #[address] [address] PCP - General Family Medicine 05/19/17 Angel Crowe DPM #[address] [address] Consulting Physician Podiatry 06/16/17 Mora Fritz Behavioral Health Navigator 06/15/18 documented as of this encounter
--- OUTSIDE RECORDS SUMMARY | 2024-10-07 00:26 | XMS_ITS | Encounter Summary ---
Author Organization [facility] Address [address] [place] [address] Phone Care Team Providers Care Record Cutter Name Role Phone Oswaldo Serrano MD Primary Care Provider Angel Crowe DPM Unavailable [phone] Mora Fritz Unavailable Unavailable Reason for Visit * Reason Onset Date Comments Medication Refill 10/05/2021 Encounter Details Date Type Department Care Team (Late st Contact Info) Description 10/05/2021 Refill [facility] UROLOGY #2 [place] [phone] Edwar Romo MD #[address] [address] Medication Refill Social History Tobacco Use Types Packs/Day Years Used Date Smoking Tobacco: Never Smokeless Tobacco: Never Alcohol Use Standard Drinks/Week Comments No 0 (1 standard drink = 0.6 oz pur e alcohol) PHQ-2 Answer Date Recorded Total Score - Questions 1-9 2 0 06/2020 Education Answer Date Recorded What is [...] Telephone Encounter - Peggy Parson RN - 10/06/2021 8:00 AM CST Medication(s) [facility] Ref[facility] Standing Order for Pediatricand Adult Patients. Requested Prescriptions Pending Prescriptions Disp Refills ??? oxybutynin (DITROPAN) 5 MG Tablet 90 Tablet 3 Sig: Take 1 Tablet by mouth daily. Urinary Anticholinergics Protocol Passed - 10/05/2021 4:34 PM Passed - Visit with relevant provider in past 12 months or upcoming 90 days Recent Visits Date Type Provider Dept 07/28/21 Telemedicine Oswaldo Serrano MD [facility] 05/14/21 Office Visit [facility] [place] 02/27/21 Office Visit Oswaldo Serrano MD [facility] [place] 02/16/21 Office Visit Oswaldo Serrano MD [facility] [place] 01/14/21 Office Visit Connor Yuan APRN, MELANGEUR OPERATOR [facility] [place] 12/19/20 Office Visit Oswaldo Serrano MD [facility] [place] 12/18/20 Telemedicine Oswaldo Serrano MD [facility] [place] 12/08/20 Telemedicine Oswaldo Serrano MD [facility] 11/07/20 Telemedicine Connor Yuan APRN, MELANGEUR OPERATOR [facility] [place] 10/29/20 Telemedicine Carson Michel MD [facility] [place] Showing recent visits within past 365 days and meeting all other requirements Future Appointments Date Type Provider Dept 10/07/21 Appointment Oswaldo Serrano MD [facility] Showing future appointments within next 90 days and meeting all other requirements Passed - GFR greater than or equal to 30 in past 12 months GFR, EST. NONAFRICAN Date Value Ref Range Status 07/02/2021 60 >=60 Final LEY WORKER * Telephone Encounter - Montserrat Moscoso RMA - 10/05/2021 4:34 PM CST Refill has been pended to [facility] [place] [facility]. Requested Prescriptions Pending Prescriptions Disp Refills ??? oxybutynin (DITROPAN) 5 MG Tablet 90 Tablet 3 Sig: Take 1 Tablet by mouth daily. LEY WORKER documented in this encounter Plan of Treatment Upcoming Encounters Date Type Department Care Team (Late st Contact Info) Description 10/08/2024 2:15 PM TROLLEY WORKER Office Visit [facility] UROLOGY #2 [place] [address] Orlin Urbina APRN, MELANGEUR OPERATOR #2 [place] [address] 10/18/2024 2:15 PM TROLLEY WORKER [facility] 1 [place] [address] Oswaldo Serrano MD #[address] [address] Discharge Disposition: Discharged to home or Selfcare 11/29/2024 2:30 PM TROLLEY WORKER [facility] Visit [facility] [place] #2 [place] [address] Oswaldo Serrano MD #[address] [address] 11/30/2024 3:00 PM TROLLEY WORKER Office Visit [facility] - [place] #2 [place] [address] Ok Jorge MD #2 [facility] [address] [place] [address] documented as of this encounter Visit Diagnoses Diagnosis OAB (overactive bladder) Hypertonicity of bladder documented in this encounter Additional Health Concerns Assessment Noted Time PHQ-9 Depression Total Score: 2 07/18/20 20 4:26 PM CDT documented as of this encounter Care Teams Record Cutter Relationship Specialty Start Date End Date Oswaldo Serrano MD #[address] [address] PCP - General Family Medicine 05/19/17 Angel Crowe DPM #2 [facility] [address] [place] [address] Consulting Physician Podiatry 06/16/17 Mora Fritz Behavioral Health Navigator 06/15/18 documented as of this encounter
--- OUTSIDE RECORDS SUMMARY | 2024-10-07 00:26 | XMS_ITS | Encounter Summary ---
Author Organization [facility] Address [address] [place] [address] Phone Care Team Providers Care Card Runner Name Role Phone Oswaldo Serrano MD Primary Care Provider Angel Crowe DPM Unavailable Mora Fritz Unavailable Unavailable Reason for Visit * Reason Onset Date Comments Runny Nose 07/28/2021 Generalized Body Aches 07/28/2021 Itchy Eye 07/28/2021 Encounter Details Date Type Department Care Team (Late st Contact Info) Description 07/28/2021 Nurse Triage [facility] [address] [place] [address] Oswaldo Serrano MD #[address] [address] Runny Nose; Generalized Body Aches; Itchy Eye Social History Tobacco Use Types Packs/Day Years [...] Telephone Encounter - Oswaldo Serrano MD - 07/29/2021 8:26 PM CDT Patient had virtual visit with me yesterday. Thanks! * Telephone Encounter - Yoli Messer RN - 07/28/2021 1:41 PM CDT Images from the original note were not included. SITUATION: Cold like symptoms BACKGROUND: Patient's sister Dilia (PRD) is calling. Patient has not been feeling well since yesterday. ASSESSMENT: Symptom Description / Location: runny nose with white discahrge, body aches, sweats, itchy eyes Pain (0-10): pain everywhere not good at rating it Temp: denies Treatment / Response: allergy pill LMP / / : N/a RECOMMENDATION: See care advice and disposition for Guideline All Patient Appointments Provider Department Dept Phone 07/28/2021 3:30 PM Oswaldo Serrano [facility] - Family Medicine [facility] [phone] First positive answer recorded, all responses to prior questions were negative. If symptoms increase, change or if new symptoms develop, call your HCP or call back. Recommendations were based on caller information and is not a diagnosis. Verified and reviewed all triage information with caller. Travel Screening Question Response In the last month, have you been in contact with someone who was confirmed or suspected to have Coronavirus / COVID-19? No / Unsure Have you had a COVID-19 viral test in the last 14 days? No Do you have any of the following new or worsening symptoms? Red eye;Runny nose;Joint pain;Muscle pain;Chills;Severe headache;Cough;Shortness of breath;Diarrhea;Sore throat Have you traveled internationally in the last month? No Travel History Travel since 06/28/21 No documented travel since 06/28/21 COVID-19 Testing Priority for Loretta Penn: 2 Reason for Disposition ??? Patient wants to be seen Protocols used: COLDS-A-OH documented in this encounter Plan of Treatment Upcoming Encounters Date Type Department Care Team (Late st Contact Info) Description 10/08/2024 2:15 PM LINOTYPE OPERATOR Office Visit [facility] UR[facility] #2 [place] [address] Orlin Urbina APRN, SNOW RANGER #2 [place] [address] 10/18/2024 2:15 PM LINOTYPE OPERATOR [facility]ment [facility] 1 [place] [address] Oswaldo Serrano MD #[address] [address] Discharge Disposition: Discharged to home or Selfcare 11/29/2024 2:30 PM LINOTYPE OPERATOR [facility] Visit [facility] #2 [place] [address] Oswaldo Serrano MD #[address] [address] 11/30/2024 3:00 PM LINOTYPE OPERATOR Office Visit [facility] - [place] #2 [place] [address] Ok Jorge MD #2 [facility] [address] [place] [address] documented as of this encounter Visit Diagnoses Not on filedocumented in this encounter Additional Health Concerns Infection Onset Date Last Indicated Resolved Time COVID - 19 07/28/2021 07/29/2021 08/17/2021 12:1 6 AM LINOTYPE OPERATOR Assessment Noted Time PHQ-9 Depression Total Score: 2 07/18/20 20 4:26 PM CDT documented as of this encounter Care Teams Card Runner Relationship Specialty Start Date End Date Oswaldo Serrano MD #2 [facility] [address] [place] [address] PCP - General Family Medicine 05/19/17 Angel Crowe DPM #2 [facility] [address] [place] [address] Consulting Physician Podiatry 06/16/17 Mora Fritz Behavioral Health Navigator 06/15/18 documented as of this encounter
--- OUTSIDE RECORDS SUMMARY | 2024-10-07 00:26 | XMS_ITS | Encounter Summary ---
Author Organization [facility] Address [address] [place] [address] Phone Care Team Providers Care Integrated Marketing Intern Name Role Phone Oswaldo Serrano MD Primary Care Provider [phone] Angel Crowe DPM Unavailable [phone] Mora Fritz Unavailable Unavailable Reason for Visit * Reason Comments Upper Respiratory Infection Encounter Details Date Type Department Care Team (Late st Contact Info) Description 07/28/2021 3:30 PM CDT Telemedicine [facility] #2 [place] [address] Oswaldo Serrano MD #[address] [address] URI, acute (Primary Dx) Social History Tobacco Use Types [...] Progress Notes * Oswaldo Serrano MD - 07/28/2021 3:30 PM CDT Patient was assessed via telephone for a duration of 5 minutes. Patient verbally consented for thisservice to be performed and billed. CC: URI S: Had itchy watery eyes last night. Is coughing, has runny nose, myalgias, BIRCH, neck pain. Had Pfizer COVID vaccines. Denies any fever or loss of taste/smell. Has been to a couple of social events, but no know COVID exposures. O: Psych: alert & oriented. A/P: 1. URI - Z-pack & Prednisone; will order COVID test to be done tomorrow. 2. F/U with me as scheduled next month. documented in this encounter Plan of Treatment Upcoming Encounters Date Type Department Care Team (Late st Contact Info) Description 10/08/2024 2:15 PM LICENSED CUSTOMS BROKER Office Visit [facility] #[address] [place] [address] Orlin Urbina, DROP FORGE OPERATOR, DATA ENTRY #2 [place] [address] 10/18/2024 2:15 PM LICENSED CUSTOMS BROKER [facility] 1 [facility] [address] Oswaldo Serrano MD #2 [facility] [address] [place] [address] Discharge Disposition: Discharged to home or Selfcare 11/29/2024 2:30 PM LICENSED CUSTOMS BROKER Office Visit [facility] Medical [facility] - Family Medicine - [place] #2 [place] [address] Oswaldo Serrano MD #2 [facility] [address] [place] [address] 11/30/2024 3:00 PM LICENSED CUSTOMS BROKER Office Visit [facility] - Endocrinology - [place] #2 [place] [address] Ok Jorge MD #2 [facility] [address] [place] [address] documented as of this encounter Results * SARS-COV-2 BY MOLECULAR (07/30/2021 10:56 AM CDT) [facility] Signature SARSCOV2 NOT DETECTED (Referen ce Range for this test is Not Detected ) [facility] THERMOFISHER FAST DX 07/31/2021 7:09 AM CDT [facility] Comment:This test was perfor med by a RT-PCR method. Other NASAL STRUCTURE / Unknown Non-Phlebotomy Collection / Unknown 07/30/2021 10:56 AM CDT 07/30/2021 10:56 AM CDT Narrative [facility] - 07/31/2021 7:09 AM CDT Authorized Fact Sheets about this test for providers and patients are available at: https://www.fda.gov/medical-devices/egpgssjvi-fqeekhelaf-fctkkiw-devices/emergen -us e-authorizations Oswaldo Serrano MD MICROBIOLOGY - GENERAL [place] [facility]INT[facility] Final Result [facility] [address] [place] [address], documented in this encounter Visit Diagnoses Diagnosis URI, acute- Primary Acute upper respiratory infections of unspecified site documented in this encounter Additional Health Concerns Assessment Noted Time PHQ-9 Depression Total Score: 2 07/18/20 20 4:26 PM CDT documented as of this encounter Care Teams Integrated Marketing Intern Relationship Specialty Start Date End Date Oswaldo Serrano MD #[address] [address] PCP - General Family Medicine 05/19/17 Angel Crowe DPM #[address] [address] Consulting Physician Podiatry 06/16/17 Mora Fritz Behavioral Health Navigator 06/15/18 documented as of this encounter
--- OUTSIDE RECORDS SUMMARY | 2024-10-07 00:26 | XMS_ITS | Encounter Summary ---
Author Organization [facility] Address [address] [place] [address] Phone Care Team Providers Care Alligator Shear Operator Name Role Phone Oswaldo Serrano MD Primary Care Provider Angel Crowe DPM Unavailable [phone] Mora Fritz Unavailable Unavailable Encounter Details Date Type Department Care Team (Late st Contact Info) Description 07/28/2021 Telephone [facility] #2 [place] [address] Oswaldo Serrano MD #[address] [address] Social History Tobacco Use Types Packs/Day Years [...] encounter Miscellaneous Notes * Telephone Encounter - Ebony Hummel RN - 07/29/2021 9:37 AM CDT Scheduled * Telephone Encounter - Oswaldo Serrano MD - 07/28/2021 8:52 PM CDT Schedule her for drive-thru COVID testing tomorrow (Tuesday). Order entered. Thanks! documented in this encounter Plan of Treatment Upcoming Encounters Date Type Department Care Team (Late st Contact Info) Description 10/08/2024 2:15 PM CD MANUFACTURING SUPERVISOR Office Visit [facility] UROLOGY #2 [place] [address] Orlin Urbina, INSERT CUTTER, [place] [employer] COTTON MACHINE OPERATOR #2 [place] [address] 10/18/2024 2:15 PM CD MANUFACTURING SUPERVISOR Appointment [facility] Mammography 1 [place] [address] Oswaldo Serrano MD #[address] [address] Discharge Disposition: Discharged to home or Selfcare 11/29/2024 2:30 PM CD MANUFACTURING SUPERVISOR [facility] Visit [facility] - [place] #2 [place] [address] Oswaldo Serrano MD #[address] [address] 11/30/2024 3:00 PM CD MANUFACTURING SUPERVISOR Office Visit [facility] - Endocrinology - [place] #2 [place] [address] Ok Jorge MD #[address] [address] documented as of this encounter Visit Diagnoses Not on filedocumented in this encounter Additional Health Concerns Infection Onset Date Last Indicated Resolved Time COVID - 19 07/28/2021 07/29/2021 08/17/2021 12:1 6 AM CD MANUFACTURING SUPERVISOR Assessment Noted Time PHQ-9 Depression Total Score: 2 07/18/20 20 4:26 PM CDT documented as of this encounter Care Teams Alligator Shear Operator Relationship Specialty Start Date End Date Oswaldo Serrano MD #[address] [address] PCP - General Family Medicine 05/19/17 Angel Crowe DPM #[address] [address] Consulting Physician Podiatry 06/16/17 Mora Fritz [place] Behavioral Health Navigator 06/15/18 documented as of this encounter
--- OUTSIDE RECORDS SUMMARY | 2024-10-07 00:26 | XMS_ITS | Encounter Summary ---
Author Organization [facility] Address [address] [place] [address] Phone Care Team Providers Care Tubing Oiler Name Role Phone Oswaldo Serrano MD Primary Care Provider Angel Crowe DPM Unavailable Mora Fritz Unavailable Unavailable Reason for Visit * Reason Comments Medication Refill Encounter Details Date Type Department Care Team (Late st Contact Info) Description 08/06/2021 Refill [facility] #2 [place] [address] Oswaldo Serrano MD #[address] [address] Medication Refill Social History Tobacco Use Types [...] encounter Miscellaneous Notes * Telephone Encounter - Lou Woodward RN - 08/06/2021 9:04 AM CDT Medication(s) refilled and signed per [facility] Chronic Medication Refill Standing Order for Pediatricand Adult Patients. Requested Prescriptions Pending Prescriptions Disp Refills ??? lisinopril (PRINIVIL, ZESTRIL) 5 MG Tablet [Pharmacy Med Name: LISINOPRIL 5MG TAB LUPI] 90 Tablet 2 Sig: TAKE ONE TABLET BY MOUTH EVERY DAY EMIR Inhibitors Protocol Passed - 08/06/2021 9:00 AM Passed - Serum potassium on record in past 12 months POTASSIUM Date Value Ref Range Status 07/02/2021 4.1 3.5 - 5.1 mmol/L Final Passed - Blood pressure on record in past 12 months Clinician-entered: BP Readings from Last 3 Encounters: 07/02/21 108/71 05/14/21 132/70 02/27/21 128/72 Patient-entered: No data recorded Passed - Visit [...] [place] 11/07/20 Telemedicine Connor Yuan APRN, YUDI [facility] [place] 10/09/20 Office Visit Oswaldo Serrano MD [facility] [place] Showing recent visits within past 365 days and meeting all other requirements Future Appointments Date Type Provider Dept 08/17/21 Appointment Oswaldo Serrano MD [facility] [place] Showing future appointments within next 90 days and meeting all other requirements Passed - GFR on record in past 12 months GFR, EST. NONAFRICAN Date Value Ref Range Status 07/02/2021 60 >=60 Final documented in this encounter Plan of Treatment Upcoming Encounters Date Type Department Care Team (Late st Contact Info) Description 10/08/2024 2:15 PM PAN RECLAIM PROCESSOR Office Visit [facility] UROLOGY #2 [place] [address] Orlin Urbina APRN, BUSINESS ARCHITECT #2 [place] [address] 10/18/2024 2:15 PM PAN RECLAIM PROCESSOR [facility] 1 [place] [address] Oswaldo Serrano MD #[address] [address] Discharge Disposition: Discharged to home or Selfcare 11/29/2024 2:30 PM PAN RECLAIM PROCESSOR Office Visit [facility] - [place] #2 [place] [address] Oswaldo Serrano MD #[address] [address] 11/30/2024 3:00 PM PAN RECLAIM PROCESSOR Office Visit [facility] - Endocrinology - [place] #2 [place] [address] Ok Jorge MD #[address] [address] documented as of this encounter Visit Diagnoses Diagnosis Orthostatic hypotension documented in this encounter Additional Health Concerns Infection Onset Date Last Indicated Resolved Time COVID - 19 07/28/2021 07/29/2021 08/17/2021 12:1 6 AM PAN RECLAIM PROCESSOR Assessment Noted Time PHQ-9 Depression Total Score: 2 07/18/20 4:26 PM CDT documented as of this encounter Care Teams Tubing Oiler Relationship Specialty Start Date End Date Oswaldo Serrano MD #[address] [address] PCP - General Family Medicine 05/19/17 Angel Crowe DPM #[address] [address] Consulting Physician Podiatry 06/16/17 Mora Fritz Behavioral Health Navigator 06/15/18 documented as of this encounter
--- OUTSIDE RECORDS SUMMARY | 2024-10-07 00:26 | XMS_ITS | Encounter Summary ---
Author Organization [employer] Care Team Providers Care Opal Polisher Name Role Phone Oswaldo Serrano MD Primary Care Provider [phone] Angel Crowe DPM Unavailable [phone] Mora Fritz Unavailable Unavailable Encounter Details Date Type Department Care Team (Latest Contact Info) Description 07/28/2021 Travel Social History Tobacco Use Types Packs/Day [...] st Contact Info) Description 10/08/2024 2:15 PM WRAPPER CASER Office Visit [facility] UROLOGY #2 [place] [address] Orlin Urbina, FRONT OFFICE DIRECTOR, PARTS PULLER #2 [place] [address] 10/18/2024 2:15 PM WRAPPER CASER [facility] 1 [place] [address] Oswaldo Serrano MD #2 [facility] 205 [place] [address] Discharge Disposition: Discharged to home or Selfcare 11/29/2024 2:30 PM WRAPPER CASER Office Visit [facility] - [place] #2 [place] [address] Oswaldo Serrano MD #2 [facility] 205 [place] [address] 11/30/2024 3:00 PM WRAPPER CASER Office Visit [facility] - Endocrinology - [place] #2 [place] [address] Ok Jorge MD #2 [facility] [address] [place] [address] documented as of this encounter Visit Diagnoses Not on filedocumented in this encounter Additional Health Concerns Infection Onset Date Last Indicated Resolved Time COVID - 19 07/28/2021 07/29/2021 08/17/2021 12:1 6 AM WRAPPER CASER Assessment Noted Time PHQ-9 Depression Total Score: 2 10/09/20 20 4:26 PM CDT documented as of this encounter Care Teams Opal Polisher Relationship Specialty Start Date End Date Oswaldo Serrano MD #[address] [address] PCP - General Family Medicine 05/19/17 Angel Crowe DPM #[address] [address] Consulting Physician Podiatry 06/16/17 Mora Fritz Behavioral Health Navigator 06/15/18 documented as of this encounter
--- OUTSIDE RECORDS SUMMARY | 2024-10-07 00:26 | XMS_ITS | Encounter Summary ---
Author Organization [facility] Address [address] [place] [address] Phone Care Team Providers Care Hole Digger Truck Driver Name Role Phone Oswaldo Serrano MD Primary Care Provider [phone] Angel Crowe DPM Unavailable Mora Fritz Unavailable Unavailable Reason for Visit * Reason Comments Medication Refill Encounter Details Date Type Department Care Team (Late st Contact Info) Description 09/16/2021 Refill [facility] - [place] #2 [place] [address] Ok Jorge MD #[address] [address] Medication Refill Social History Tobacco [...] Telephone Encounter - Ok Jorge MD - 09/16/2021 2:07 PM CST Rx sent ETES CLINICAL MANAGER * Telephone Encounter - Ynes Zuniga, RN - 09/16/2021 1:53 PM DIABETES CLINICAL MANAGER Requested Prescriptions Pending Prescriptions Disp Refills ??? Lantus 100 UNIT/ML Solution [Pharmacy Med Name: LANTUS INJ 100/ML] 10 mL 1 Sig: INJECT 17 UNITS UNDER THE SKIN EVERY MORNING Next appt: 11/06/2021 ETES CLINICAL MANAGER documented in this encounter Plan of Treatment Upcoming Encounters Date Type Department Care Team (Late st Contact Info) Description 10/08/2024 2:15 PM DIABETES CLINICAL MANAGER Office Visit [facility] UROLOGY #2 [place] [address] Orlin Urbina, ENTRY LEVEL RECEPTIONIST, EDGING MACHINE OPERATOR #2 [place] [address] 10/18/2024 2:15 PM DIABETES CLINICAL MANAGER Appointment [facility] Mammography 1 [place] [phone] Oswaldo Serrano MD #[address] [address] Discharge Disposition: Discharged to home or Selfcare 11/29/2024 2:30 PM DIABETES CLINICAL MANAGER Office Visit [facility] Medical Group - Family Medicine - [place] #2 [place] [address] Oswaldo Serrano MD #[address] [address] 11/30/2024 3:00 PM DIABETES CLINICAL MANAGER Office Visit [facility] - Endocrinology - [place] #2 [place] [address] Ok Jorge MD #[address] [address] documented as of this encounter Visit Diagnoses Not on filedocumented in this encounter Additional Health Concerns Assessment Noted Time PHQ-9 Depression Total Score: 2 07/18/20 20 4:26 PM CDT documented as of this encounter Care Teams Hole Digger Truck Driver Relationship Specialty Start Date End Date Oswaldo Serrano MD #[address] [address] PCP - General Family Medicine 05/19/17 Angel Crowe DPM #[address] [address] Consulting Physician Podiatry 06/16/17 Mora Fritz Behavioral Health Navigator 06/15/18 documented as of this encounter
--- OUTSIDE RECORDS SUMMARY | 2024-10-07 00:26 | XMS_ITS | Encounter Summary ---
Author Organization [facility] Care Team Providers Care Deburr Operator Name Role Phone Oswaldo Serrano MD Primary Care Provider [phone] Angel Crowe DPM Unavailable [phone] Mora Fritz Unavailable Unavailable Encounter Details Date Type Department Care Team (Latest Contact Info) Description 07/24/2021 Travel Social History Tobacco Use Types Packs/Day [...] have Coronavirus / COVID-19? No / Unsure 07/24/2021 3:55 PM CDT documented as of this encounter Plan of Treatment Upcoming Encounters Date Type Department Care Team (Late st Contact Info) Description 10/08/2024 2:15 PM THERMAL CUTTER HAND Office Visit [facility] GROUP UROLOGY #2 [place] [address] Orlin Urbina, TAPING SUPERVISOR, INSPECTOR MISSILE #2 [place] [address] 10/18/2024 2:15 PM THERMAL CUTTER HAND [facility] 1 [place] [address] Oswaldo Serrano MD #[address] [facility] [address] [place] [address] Discharge Disposition: Discharged to home or Selfcare 11/29/2024 2:30 PM THERMAL CUTTER HAND Office Visit [facility] - [place] #2 [place] [address] Oswaldo Serrano MD #[address] [facility] [address] [place] [address] 11/30/2024 3:00 PM THERMAL CUTTER HAND Office Visit [facility] - [place] #2 [place] [address] Ok Jorge MD #[address] [facility] [address] [place] [address] documented as of this encounter Visit Diagnoses Not on filedocumented in this encounter Additional Health Concerns Assessment Noted Time PHQ-9 Depression Total Score: 2 07/18/20 20 4:26 PM CDT documented as of this encounter Care Teams Deburr Operator Relationship Specialty Start Date End Date Oswaldo Serrano MD #[address] [address] PCP - General Family Medicine 05/19/17 Angel Crowe DPM #[address] [address] Consulting Physician Podiatry 06/16/17 Mora Fritz Behavioral Health Navigator 06/15/18 documented as of this encounter
--- OUTSIDE RECORDS SUMMARY | 2024-10-07 00:26 | XMS_ITS | Encounter Summary ---
Author Organization [facility] Address [address] [place] [address] Phone Care Team Providers Care Staking Press Operator Name Role Phone Oswaldo Serrano MD Primary Care Provider [phone] Angel Crowe DPM Unavailable Mora Fritz Unavailable Unavailable Encounter Details Date Type Department Care Team (Late st Contact Info) Description 07/29/2021 4:00 PM CDT Lab [facility] - [place] #2 [place] [address] Clinic, [facility] Nurse [place] URI, acute Discharge Disposition: Discharged to home or Selfcare [...] as of this encounter Progress Notes * Maria Luisa Rangel RN - 07/29/2021 4:00 PM CDT Covid swab specimen obtained for PCR testing. Patient tolerated well. documented in this encounter Miscellaneous Notes * Addendum Note - Maria Luisa Rangel RN - 07/29/2021 4:00 PM CDTAddended by: MARIA LUISA RANGEL on: 07/29/2021 04:58 PM Modules accepted: Orders documented in this encounter Plan of Treatment Upcoming Encounters Date Type Department Care Team (Late st Contact Info) Description 10/08/2024 2:15 PM CUSTOMIZER Office Visit [facility] UROLOGY #2 [place] [address] Orlin Urbina, SHOT CORE DRILL OPERATOR, MATRIX SUPERVISOR #2 [place] [address] 10/18/2024 2:15 PM CUSTOMIZER Appointment [facility] Mammography 1 [place] [address] Oswaldo Serrano MD #[address] [address] Discharge Disposition: Discharged to home or Selfcare 11/29/2024 2:30 PM CUSTOMIZER Office Visit [facility] Medical Group - Family Medicine - [place] #2 [place] [address] Oswaldo Serrano MD #2 [facility] [address] [place] [address] 11/30/2024 3:00 PM CUSTOMIZER Office Visit [facility] Medical [facility] - Endocrinology - [place] #2 [facility] [place] [address] Ok Jorge MD #2 [facility] [address] [place] [address] documented as of this encounter Procedures Procedure Name Priority Date/Time Associated Diagnosis Comments SARS-COV-2 BY MOLECULAR Routine 07/30/2021 10:56 AM CDT URI, acute documented in this encounter Results * SARS-COV-2 BY MOLECULAR (07/30/2021 10:56 AM CDT) SARSCOV2 NOT DETECTED (Referen ce Range for this test is Not Detected ) [facility] THERMOFISHER FAST DX 07/31/2021 7:09 AM CDT [facility] Comment:This test was perfor med by a RT-PCR method. Other NASAL STRUCTURE / Unknown Non-Phlebotomy Collection / Unknown 07/30/2021 10:56 AM CDT 07/30/2021 10:56 AM CDT Narrative [facility] - 07/31/2021 7:09 AM CDT Authorized Fact Sheets about this test for providers and patients are available at: https://www.fda.gov/medical-devices/objtdgkjj-ffynttnnlq-rorbwmc-devices/emergen -us e-authorizations Oswaldo Serrano MD MICROBIOLOGY - GENERAL ORDE ARNALDO Final Result [facility] [address] [place] [address], [place] documented in this encounter Visit Diagnoses Diagnosis URI, acute Acute upper respiratory infections of unspecified site documented in this encounter Additional Health Concerns Infection Onset Date Last Indicated Resolved Time COVID - 19 07/28/2021 07/29/2021 08/17/2021 12:1 6 AM CUSTOMIZER Assessment Noted Time PHQ-9 Depression Total Score: 2 07/18/20 20 4:26 PM CDT documented as of this encounter Care Teams Staking Press Operator Relationship Specialty Start Date End Date Oswaldo Serrano MD #[address] [address] PCP - General Family Medicine 05/19/17 Angel Crowe DPM #[address] [address] Consulting Physician Podiatry 06/16/17 Mora Fritz Behavioral Health Navigator 06/15/18 documented as of this encounter
--- OUTSIDE RECORDS SUMMARY | 2024-10-07 00:26 | XMS_ITS | Encounter Summary ---
Author Organization [facility] Address [address] [place] [address] Phone Care Team Providers Care Gum Machine Filler Name Role Phone Oswaldo Serrano MD Primary Care Provider [phone] Angel Crowe DPM Unavailable Mora Fritz Unavailable Unavailable Ok Jorge MD Unavailable Orlin Urbina APRN, CASKET TRIMMER Unavailable + [phone] Reason for Visit * Reason Comments Medication Refill Encounter Details Date Type Department Care Team (Late st Contact Info) Description 05/13/2021 Refill [facility] - [place] #2 [place] [address] Ronda Pedraza APRN, YUDI #[address] [address] Medication Refill Social History Tobacco [...] Telephone Encounter - Mica Morales RN - 05/13/2021 1:55 PM CDT Patient has appt with Connor tomorrow 05/14/21 * Telephone Encounter - Mica Morales RN - 05/13/2021 1:54 PM CDT Ref Range & Units 2 mo ago VITAMIN D, 25 HYDROX >=30 ng/mL 33 Resulted 03/07/21 - there is no order for new lab work Medication failed the protocol, provider to review and approve the medication order if appropriate. Requested Prescriptions Pending Prescriptions Disp Refills ergocalciferol (VITAMIN D) [address] UNIT Capsule [Pharmacy Med Name: VITAMIN D 50,000UNIT CAP STR] 4 Capsule 2 Sig: TAKE ONE CAPSULE BY MOUTH ONCE WEEKLY [facility] Off-Protocol Failed - 05/13/2021 11:44 AM Failed - Medication not assigned to a protocol, review manually. Passed - Valid encounter within last 12 months Past Office Visits Recent Outpatient Visits 2 months ago Urinary frequency [facility] - Family Medicine - Oswaldo Moreno MD 2 months ago B12 deficiency [facility] - Oswaldo Moreno, MD 3 months ago [facility]UD[facility] 4 months ago Essential hypertension [facility] Oswaldo Moreno MD 4 months ago Intractable cluster headache syndrome, unspecified chronicity pattern [facility] Upcoming Appointments Future Appointments Tomorrow Connor Yuan APN, YUDI [facility] 1 month Ok Jorge MD [facility] CEPHALOMETRIC ANALYST - Recent and Past Visits Recent Visits Date Type Provider Dept 02/27/21 Office Visit Oswaldo Serrano MD [facility] 02/16/21 Office Visit Oswaldo Serrano MD [facility] [place] 01/14/21 Office Visit Connor Yuan APN, YUDI [facility] [place] 12/19/20 Office Visit Oswaldo Serrano MD [facility] 12/18/20 Telemedicine Oswaldo Serrano MD [facility] [place] 12/08/20 Telemedicine Oswaldo Serrano MD [facility] 11/07/20 Telemedicine Connor Yuan APN, YUDI [facility] 10/09/20 Office Visit Oswaldo Serrano MD [facility] 09/16/20 Telemedicine Oswaldo Serrano MD [facility] [place] 07/18/20 Office Visit Connor Yuan APN, YUDI [facility] Showing recent visits within past 460 days with a meds authorizing provider and meeting all other requirements Future Appointments Date Type Provider Dept 05/14/21 Appointment Connor Yuan APN, YUDI [facility] Showing future appointments within next 90 days with a meds authorizing provider and meeting all other requirements documented in this encounter Plan of Treatment Upcoming Encounters Date Type Department Care Team (Late st Contact Info) Description 10/08/2024 2:15 PM BRIDGE WORKER Office Visit [facility] UROLOGY #2 [place] [address] Orlin Urbina APRN, CASKET TRIMMER #2 [place] [address] 10/18/2024 2:15 PM BRIDGE WORKER Appointment [facility] M[facility] 1 [place] [address] Oswaldo Serrano MD #[address] [address] Discharge Disposition: Discharged to home or Selfcare 11/29/2024 2:30 PM BRIDGE WORKER Office Visit [facility] - [place] #2 [place] [address] Oswaldo Serrano MD #[address] [address] 11/30/2024 3:00 PM BRIDGE WORKER Office Visit [facility] - [place] #2 [place] [address] Ok Jorge MD #[address] [address] documented as of this encounter Visit Diagnoses Diagnosis Vitamin D deficiency Unspecified vitamin D deficiency documented in this encounter Additional Health Concerns Infection Onset Date Last Indicated Resolved Time COVID - 19 07/28/2021 07/29/2021 08/17/2021 12:1 6 AM BRIDGE WORKER Assessment Noted Time PHQ-9 Depression Total Score: 2 07/18/20 20 4:26 PM CDT documented as of this encounter Care Teams Gum Machine Filler Relationship Specialty Start Date End Date Oswaldo Serrano MD #2 [facility] 205 [place] [address] PCP - General Family Medicine 05/19/17 Angel Crowe DPM #2 [facility] 205 [place] [address] Consulting Physician Podiatry 06/16/17 Mora Fritz CA Behavioral Health Navigator 06/15/18 Ok Jorge MD #2 [facility] [address] [place] [address] Consulting Physician Endocrinology 05/12/22 Orlin Urbina, FRAME ALIGNER, CASKET TRIMMER #2 [place] [address] Nurse Practitioner Advanced Practice Nurse 11/09/22 documented as of this encounter
--- OUTSIDE RECORDS SUMMARY | 2024-10-07 00:26 | XMS_ITS | Encounter Summary ---
Author Organization [facility] Address [address] [place] [address] Phone Care Team Providers Care Electronics Manufacturer Name Role Phone Oswaldo Serrano MD Primary Care Provider Angel Crowe DPM Unavailable Mora Fritz Unavailable Unavailable Reason for Visit * Reason Comments Medication Refill Encounter Details Date Type Department Care Team (Late st Contact Info) Description 07/13/2021 Refill [facility] - [place] #2 [place] [address] Ok Jorge MD #[address] [address] Medication Refill Social History Tobacco [...] Telephone Encounter - Ok Jorge MD - 07/13/2021 2:37 PM CDT Rx sent * Telephone Encounter - Lucila Panda CMA - 07/13/2021 1:28 PM CDT Patient calling requesting refill of: Requested Prescriptions Pending Prescriptions Disp Refills HumaLOG 100 UNIT/ML Solution [Pharmacy Med Name: HUMALOG 100/ML INJ LILL] 30 mL 2 Si UNITS BEFORE EACH MEAL --- ISF OF 1:25 UP TO 80 UNITS PER DAY Last fill: Patients next office visit with ENDO is: 08/04/2021 documented in this encounter Plan of Treatment Upcoming Encounters Date Type Department Care Team (Late st Contact Info) Description 10/08/2024 2:15 PM VICE PRESIDENT OF RECRUITING Office Visit [facility] UROLOGY #2 [place] [address] Orlin Urbina APRN, TECHNICAL BUYER #2 [place] [address] 10/18/2024 2:15 PM VICE PRESIDENT OF RECRUITING Appointment [facility] Mammography 1 [place] [address] Oswaldo Serrano MD #[address] [address] Discharge Disposition: Discharged to home or Selfcare 11/29/2024 2:30 PM VICE PRESIDENT OF RECRUITING Office Visit [facility] Family Medicine [facility] #2 [place] [address] Oswaldo Serrano MD #[address] [address] 11/30/2024 3:00 PM VICE PRESIDENT OF RECRUITING Office Visit [facility] Endocrinology [facility] #2 [place] [address] Ok Jorge MD #[address] [address] documented as of this encounter Visit Diagnoses Not on filedocumented in this encounter Additional Health Concerns Assessment Noted Time PHQ-9 Depression Total Score: 2 07/18/20 20 4:26 PM CDT documented as of this encounter Care Teams Electronics Manufacturer Relationship Specialty Start Date End Date Oswaldo Serrano MD #[address] [address] PCP - General Family Medicine 05/19/17 Angel Crowe DPM #[address] [address] Consulting Physician Podiatry 06/16/17 Mora Fritz Behavioral Health Navigator 06/15/18 documented as of this encounter
--- OUTSIDE RECORDS SUMMARY | 2024-10-07 00:26 | XMS_ITS | Encounter Summary ---
Author Organization [facility] Address [address] [facility] [place] [address] Phone Care Team Providers Care Community Service Technician Name Role Phone Oswaldo Serrano MD Primary Care Provider Angel Crowe DPM Unavailable Mora Fritz Unavailable Unavailable Reason for Visit * Reason Onset Date Comments Need Order 07/21/2021 Encounter Details Date Type Department Care Team (Late st Contact Info) Description 07/21/2021 Telephone [facility] [address] [place] [address] Oswaldo Serrano MD #[address] [address] Need Order Social History Tobacco Use Types Packs/Day Years [...] COVID-19? No / Unsure 10/07/2021 3:45 PM IMPORT/EXPORT ADMINISTRATOR documented as of this encounter Miscellaneous Notes * Telephone Encounter - Oswaldo Serrano MD - 07/22/2021 9:43 PM CDT Pended order signed. Thanks! * Telephone Encounter - Ynes Kramer RN - 07/21/2021 3:56 PM CDT Patient's sister is calling today because the pharmacy will not refill the Vitamin D prescription until she has it checked. Order is pended for your review. Please Advise Thank you documented in this encounter Plan of Treatment Upcoming Encounters Date Type Department Care Team (Late st Contact Info) Description 10/08/2024 2:15 PM IMPORT/EXPORT ADMINISTRATOR Office Visit [facility] UROLOGY #2 [place] [address] Orlin Urbina, FOREST BOTANY INSTRUCTOR, JEWEL HOLE CORNERER #2 [place] [address] 10/18/2024 2:15 PM IMPORT/EXPORT ADMINISTRATOR Appointment [facility] Mammography 1 [place] [address] Oswaldo Serrano MD #2 [facility] [address] [place] [address] Discharge Disposition: Discharged to home or Selfcare 11/29/2024 2:30 PM IMPORT/EXPORT ADMINISTRATOR Office Visit [facility] Medical [facility] - Family Medicine - [place] #2 [place] [address] Oswaldo Serrano MD #2 [facility] [address] [place] [address] 11/30/2024 3:00 PM IMPORT/EXPORT ADMINISTRATOR Office Visit [facility] Endocrinology - [place] #2 [place] [phone] Ok Jorge MD #[address] [address] documented as of this encounter Results * VITAMIN D, 25 HYDROXY TOTAL (07/24/2021 4:09 PM CDT) [facility] VITAMIN D, 25 HYDROX 35 >=30 ng/mL 07/24/2021 5:57 PM CDT [facility] Blood Venipuncture / Unknown 07/24/2021 4:09 PM CDT 07/24/2021 5:15 PM CDT Narrative [facility] - 07/24/2021 5:57 PM CDT Published reference ranges for Vitamin D vary depending on time and place and method of testing, and on patient's age, sex, ethnicity and levels of other measured analytes such as parathormone, calcium and phosphorus. ??The result should be evaluated in conjunction with clinical findings and suspicions. [employer] and Endocrine Clinical Practice Guidelines: Status Vitamin D levels (ng/mL) Deficient <=20 At risk of inadequacy 21-29 Sufficient 30-100 Centers of Disease Control and Prevention Guidelines: Status Vitamin D levels (ng/mL) Deficient <13 At risk of inadequacy 13-19 Sufficient 20-50 Possibly harmful >50 References: [employer], 2010 Dietary reference intakes for calcium and vitamin D. Guidry [place]: ??The National Academies Press. Eve M, Forrest N, Maksim BIRCH, et al., Evaluation, treatment, and prevention of Vitamin D deficiency: an Endocrinology Clinical Practice Guideline. JCEM 2011 96: 7 0637-2800. Faiza A, Manjinder C, Tyson D, et al., Vitamin D Status: ??[place], 2000- 1005, [facility] data brief, no. 59, MD Claudia: ??[facility] Statistics. 2011. Oswaldo Serrano MD CHEMISTRY ORDERABLES Final Result [facility] #1 [place] [address] documented in this encounter Visit Diagnoses Diagnosis Vitamin D deficiency- Primary Unspecified vitamin D deficiency documented in this encounter Additional Health Concerns Infection Onset Date Last Indicated Resolved Time COVID - 19 07/28/2021 07/29/2021 08/17/2021 12:1 6 AM IMPORT/EXPORT ADMINISTRATOR Assessment Noted Time PHQ-9 Depression Total Score: 2 07/18/20 20 4:26 PM CDT documented as of this encounter Care Teams Community Service Technician Relationship Specialty Start Date End Date Oswaldo Serrano MD #[address] [address] PCP - General Family Medicine 05/19/17 Angel Crowe DPM #[address] [address] Consulting Physician Podiatry 06/16/17 Mora Fritz Behavioral Health Navigator 06/15/18 documented as of this encounter
--- OUTSIDE RECORDS SUMMARY | 2024-10-07 00:26 | XMS_ITS | Encounter Summary ---
Author Organization [facility] Address [address] [place] [address] Phone Care Team Providers Care Nutrition Counselor Name Role Phone Oswaldo Serrano MD Primary Care Provider [phone] Angel Crowe DPM Unavailable Mora Fritz Unavailable Unavailable Reason for Visit * Reason Onset Date Comments Form Completion 09/08/2021 Encounter Details Date Type Department Care Team (Late st Contact Info) Description 09/08/2021 Telephone [facility] [place] #2 [place] [phone] Oswaldo Serrano MD #[address] [address] Form Completion Social History Tobacco Use Types [...] Telephone Encounter - Zainab Roblero RN - 09/08/2021 8:29 AM CST Form received from [employer] for pcp signature on incontinence supplies. Signed and faxed back. ORT MANAGER documented in this encounter Plan of Treatment Upcoming Encounters Date Type Department Care Team (Late st Contact Info) Description 10/08/2024 2:15 PM AIRPORT MANAGER Office Visit [facility] UROLOGY #2 [place] [address] Orlin Urbina APRN, FEED GRINDER #2 [place] [address] 10/18/2024 2:15 PM AIRPORT MANAGER Appointment [facility] Mammography 1 [place] [address] Oswaldo Serrano MD #[address] [address] Discharge Disposition: Discharged to home or Selfcare 11/29/2024 2:30 PM AIRPORT MANAGER Office Visit [facility] - [facility] Medicine [facility] [place] #2 [place] [address] Oswaldo Serrano MD #[address] [address] 11/30/2024 3:00 PM AIRPORT MANAGER Office Visit [facility] - [place] #2 [place] [phone] Ok Jorge MD #2 [facility] [address] [place] [address] documented as of this encounter Visit Diagnoses Not on filedocumented in this encounter Additional Health Concerns Assessment Noted Time PHQ-9 Depression Total Score: 2 07/18/20 20 4:26 PM CDT documented as of this encounter Care Teams Nutrition Counselor Relationship Specialty Start Date End Date Oswaldo Serrano MD #[address] [address] PCP - General Family Medicine 05/19/17 Angel Crowe DPM #[address] [address] Consulting Physician Podiatry 06/16/17 Mora Fritz Behavioral Health Navigator 06/15/18 documented as of this encounter
--- OUTSIDE RECORDS SUMMARY | 2024-10-07 00:26 | XMS_ITS | Encounter Summary ---
Author Organization [facility] Address [address] [facility] [address] Phone Care Team Providers Care Sales Engagement Manager Name Role Phone Oswaldo Serrano MD Primary Care Provider Angel Crowe DPM Unavailable Mora Fritz Unavailable Unavailable Reason for Visit * Reason Onset Date Comments Neck Pain 07/02/2021 Encounter Details Date Type Department Care Team (Late st Contact Info) Description 07/02/2021 Nurse Triage [facility] [address] [place] [address] Oswaldo Serrano MD #[address] [address] Neck Pain Social History Tobacco Use Types Packs/Day [...] COVID-19? No / Unsure 10/07/2021 3:45 PM WAREHOUSE OPERATIONS MANAGER documented as of this encounter Miscellaneous Notes * Telephone Encounter - Ynes Kramer RN - 07/02/2021 2:41 PM CDT SITUATION: Patient has been having pain in her neck issues. BACKGROUND: This pain has been going on for about two weeks now. She is looking at her cell phone always per her sister. ASSESSMENT: The pain starts at her neck and shoots up into her head. She does not get enough sleep due to being on her phone a lot. She is also having ear pain in her left ear. Her sister states about four months ago patient had this same kind of pain. The pain in her neck comes and goes but is frequent. Patient states her neck hurts when she turns her head. Patient rates the pain in her neck as moderate. Her sister states when she is hurting it is excruciating. The pain radiates to her head and right arm. Patient denies numbness. She describes the pain as a sharp pain. When the pain shoots into her head it is on her left side her head. Patient's sister thinks it may because she is always looking down at her phone. Patient denies fever. The head pain is only there when she has the neck pain. Patient is not able to review medication list as she does not have it available. Allergy list reviewed. Patient states she is not able to touch her chin to her chest without excruciating pain in her neck with the shooting pain to her head. Advised patient be evaluated in Emergency Department. Patient's sister will drive patient. Appointment made: Patient's sister will take patient to the Emergency Department to have patient evaluated RECOMMENDATION: See care advice and disposition for Guideline First positive answer recorded, all responses to prior questions were negative. If symptoms increase, change or if new symptoms develop, call your HCP or call back. Recommendations were based on caller information and is not a diagnosis. Verified and reviewed all triage information with caller. Reason for Disposition ??? Stiff neck (can't touch chin to chest) and has headache Protocols used: NECK PAIN OR [id number] documented in this encounter Plan of Treatment Upcoming Encounters Date Type Department Care Team (Late st Contact Info) Description 10/08/2024 2:15 PM WAREHOUSE OPERATIONS MANAGER Office Visit [facility] PHYSICIAN GROUP UROLOGY #2 [place] [phone] Orlin Urbina, SUPERVISOR METAL FURNITURE FABRICATION, BACK FACER #2 [place] [address] 10/18/2024 2:15 PM WAREHOUSE OPERATIONS MANAGER [facility] 1 [place] [phone] Oswaldo Serrano MD #[address] [address] Discharge Disposition: Discharged to home or Selfcare 11/29/2024 2:30 PM WAREHOUSE OPERATIONS MANAGER [facility] #2 [place] [address] Oswaldo Serrano MD #[address] [address] 11/30/2024 3:00 PM WAREHOUSE OPERATIONS MANAGER [facility] [place] #2 [place] [address] Ok Jorge MD #[address] [place] [address] documented as of this encounter Visit Diagnoses Not on filedocumented in this encounter Additional Health Concerns Infection Onset Date Last Indicated Resolved Time COVID - 19 07/28/2021 07/29/2021 08/17/2021 12:1 6 AM WAREHOUSE OPERATIONS MANAGER Assessment Noted Time PHQ-9 Depression Total Score: 2 07/18/20 20 4:26 PM CDT documented as of this encounter Care Teams Sales Engagement Manager Relationship Specialty Start Date End Date Oswaldo Serrano MD #2 [facility] [address] [place] [address] PCP - General Family Medicine 05/19/17 Angel Crowe DPM #2 [facility] [address] [place] [address] Consulting Physician Podiatry 06/16/17 Mora Fritz Behavioral Health Navigator 06/15/18 documented as of this encounter
--- OUTSIDE RECORDS SUMMARY | 2024-10-07 00:26 | XMS_ITS | Encounter Summary ---
Author Organization [facility] Address [address] [place] [address] Phone Care Team Providers Care Councilperson Name Role Phone Oswaldo Serrano MD Primary Care Provider [phone] Angel Crowe DPM Unavailable Mora Fritz Unavailable Unavailable Ok Jorge MD Unavailable Orlin Urbina APRN, JEWELRY SALES 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 Unavailable Reason for Visit * Reason Comments Medication Refill Encounter Details Date Type Department Care Team (Late st Contact Info) Description 04/15/2021 Refill [facility] [address] [place] [address] Oswaldo Serrano MD #[address] [address] Medication Refill Social History Tobacco Use Types [...] Contact Info) Description 10/08/2024 2:15 PM WRAPPER HANDS SPRAYER Office Visit [facility] UROLOGY #2 [place] [address] Orlin Urbina, LIEUTENANT GOVERNOR, JEWELRY SALES 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 #2 [place] [address] 10/18/2024 2:15 PM WRAPPER HANDS SPRAYER Appointment [facility] Mammography 1 [place] [address] Oswaldo Serrano MD #[address] [address] Discharge Disposition: Discharged to home or Selfcare 11/29/2024 2:30 PM WRAPPER HANDS SPRAYER Office Visit [facility] - Family Medicine [facility] #2 [place] [address] Oswaldo Serrano MD #[address] [address] 11/30/2024 3:00 PM WRAPPER HANDS SPRAYER Office Visit [facility] - Endocrinology - [place] #2 [place] [address] Ok Jorge MD #2 [facility] [address] [place] [address] documented as of this encounter Visit Diagnoses Not on filedocumented in this encounter Additional Health Concerns Infection Onset Date Last Indicated Resolved Time COVID - 19 07/28/2021 07/29/2021 08/17/2021 12:1 6 AM WRAPPER HANDS SPRAYER Assessment Noted Time PHQ-9 Depression Total Score: 2 07/18/20 20 4:26 PM CDT documented as of this encounter Care Teams Councilperson Relationship Specialty Start Date End Date Oswaldo Serrano MD #2 [facility] [address] [place] [address] PCP - General Family Medicine 05/19/17 Angel Crowe DPM [address] [address] Consulting Physician Podiatry 06/16/17 Mora Fritz [place] Behavioral Health Navigator 06/15/18 Ok Jorge MD #[address] [address] Consulting Physician Endocrinology 05/12/22 Orlin Urbina, LIEUTENANT GOVERNOR, JEWELRY SALES 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 #2 [facility] [place] [address] Nurse Practitioner Advanced Practice Nurse 11/09/22 documented as of this encounter
--- OUTSIDE RECORDS SUMMARY | 2024-10-07 00:26 | XMS_ITS | Encounter Summary ---
Author Organization [facility] Address [address] [place] [address] Phone Care Team Providers Care Manager Supply Chain Planning Name Role Phone Oswaldo Serrano MD Primary Care Provider Angel Crowe DPM Unavailable Mora Fritz Unavailable Unavailable Reason for Visit * Reason Onset Date Comments Medication Refill 10/05/2021 Encounter Details Date Type Department Care Team (Late st Contact Info) Description 10/05/2021 Refill [facility] UROLOGY #2 [place] [phone] Edwar Romo MD #[address] [address] Medication Refill Social History Tobacco Use Types [...] Telephone Encounter - Peggy Parson RN - 10/05/2021 3:56 PM CST Medication(s) [facility] Standing Order for Pediatricand Adult Patients. Requested Prescriptions Pending Prescriptions Disp Refills ??? oxybutynin (DITROPAN) 5 MG Tablet 90 Tablet 3 Sig: Take 1 Tablet by mouth daily. Urinary Anticholinergics Protocol Passed - 10/05/2021 3:52 PM Passed - Visit with relevant provider in past 12 months or upcoming 90 days Recent Visits Date Type Provider Dept 07/28/21 Telemedicine Oswaldo Serrano MD [facility] 05/14/21 Office [facility] [place] 02/27/21 Office Visit Oswaldo Serrano MD [facility] [place] 02/16/21 Office Visit Oswaldo Serrano MD [facility] [place] 01/14/21 Office Visit Connor Yuan APRN, SHOW DOG TRAINER [facility] 12/19/20 Office Visit Oswaldo Serrano MD [facility] [place] 12/18/20 Telemedicine Oswaldo Serrano MD [facility] 12/08/20 Telemedicine Oswaldo Serrano MD [facility] 11/07/20 Telemedicine Connor Yuan APRN, SHOW DOG TRAINER [facility] [place] 10/29/20 Telemedicine Carson Michel MD [facility] [place] Showing recent visits within past 365 days and meeting all other requirements Future Appointments Date Type Provider Dept 10/07/21 Appointment Oswaldo Serrano MD [facility] Showing future appointments within next 90 days and meeting all other requirements Passed - GFR greater than or equal to 30 in past 12 months GFR, EST. NONAFRICAN Date Value Ref Range Status 07/02/2021 60 >=60 Final LE MACHINE OPERATOR * Telephone Encounter - Dariel Dowling RMA - 10/05/2021 3:50 PM CST Pt's pharmacy requesting a refill on Requested Prescriptions Pending Prescriptions Disp Refills ??? oxybutynin (DITROPAN) 5 MG Tablet 90 Tablet 3 Sig: Take 1 Tablet by mouth daily. LE MACHINE OPERATOR documented in this encounter Plan of Treatment Upcoming Encounters Date Type Department Care Team (Late st Contact Info) Description 10/08/2024 2:15 PM HANDLE MACHINE OPERATOR Office Visit [facility] UROLOGY #2 [place] [phone] Orlin Urbina HUMAN SERVICE WORKER, SHOW DOG TRAINER #2 [place] [address] 10/18/2024 2:15 PM HANDLE MACHINE OPERATOR [facility] 1 [place] [address] Oswaldo Serrano MD #[address] [address] Discharge Disposition: Discharged to home or Selfcare 11/29/2024 2:30 PM HANDLE MACHINE OPERATOR [facility] - [place] #2 [place] [address] Oswaldo Serrano MD #[address] [address] 11/30/2024 3:00 PM HANDLE MACHINE OPERATOR Office Visit [facility] - Endocrinology - [place] #2 [place] [address] Ok Jorge MD #2 [facility] [address] [place] [address] documented as of this encounter Visit Diagnoses Diagnosis OAB (overactive bladder) Hypertonicity of bladder documented in this encounter Additional Health Concerns Assessment Noted Time PHQ-9 Depression Total Score: 2 07/18/20 20 4:26 PM CDT documented as of this encounter Care Teams Manager Supply Chain Planning Relationship Specialty Start Date End Date Oswaldo Serrano MD #[address] [address] PCP - General Family Medicine 05/19/17 Angel Crowe DPM #[address] [address] Consulting Physician Podiatry 06/16/17 Mora Fritz Behavioral Health Navigator 06/15/18 documented as of this encounter
--- OUTSIDE RECORDS SUMMARY | 2024-10-07 00:26 | XMS_ITS | Encounter Summary ---
Author Organization [facility] Address [address] [facility] [place] [address] Phone Care Team Providers Care Insole Tack Puller Hand Name Role Phone Oswaldo Serrano MD Primary Care Provider [phone] Angel Crowe DPM Unavailable [phone] Mora Fritz Unavailable Unavailable Reason for Visit * Reason Onset Date Comments Urinary Frequency 04/10/2021 Encounter Details Date Type Department Care Team (Late st Contact Info) Description 04/10/2021 Nurse Triage [facility] [address] [place] [address] Oswaldo Serrano MD #[address] [address] Urinary Frequency Social History Tobacco Use Types Packs/Day Years [...] Telephone Encounter - Oswaldo Serrano MD - 04/13/2021 5:31 PM CDT Spoke with relative. Levaquin ordered - will start tomorrow after giving urine specimen. Pended laborders signed. Thanks! * Telephone Encounter - Fransico Fuchs RN - 04/10/2021 12:01 PM CDT SITUATION: Urinary frequency BACKGROUND: hx of DM ASSESSMENT: Symptom Description / Location: Sister calling and states patient has had urinary frequency for a week now. Denies pain when urinating. Denies any other symptoms Pain (0-10): chronic pain all over Temp: denies fever Treatment / Response: regular medications today LMP / / : n/a RECOMMENDATION: Caller wants an order for urine testing and will take patient to Outpatient Lab today. Informed caller that RN will send Dr. Serrano a note and call back. See care advice and disposition for Guideline First positive answer recorded, all responses to prior questions were negative. If symptoms increase, change or if new symptoms develop, call your HCP or call back. Recommendations were based on caller information and is not a diagnosis. Verified and reviewed all triage information with caller. Reason for Disposition ??? Nursing judgment Protocols used: NO PROTOCOL AVAILABLE - SICK ADULT-A-[place] documented in this encounter Plan of Treatment Upcoming Encounters Date Type Department Care Team (Late st Contact Info) Description 10/08/2024 2:15 PM KITCHEN HAND Office Visit [facility] PHYSICIAN [facility] UROLOGY #2 [facility] [place] [phone] Orlin Urbina, SENIOR TECHNICAL SUPPORT ENGINEER, EXTENSION WORK INSTRUCTOR #2 [place] [address] 10/18/2024 2:15 PM KITCHEN HAND Appointment [facility] [address] [place] [phone] Oswaldo Serrano MD #2 [facility] [address] [place] [address] Discharge Disposition: Discharged to home or Selfcare 11/29/2024 2:30 PM KITCHEN HAND Office Visit [facility] - [facility] - [place] #2 [place] [address] Oswaldo Serrano MD #2 [facility] [address] [place] [address] 11/30/2024 3:00 PM KITCHEN HAND Office Visit [facility] - Endocrinology - [place] #2 [facility] [place] [address] Ok Jorge MD #2 [facility] [address] [place] [address] documented as of this encounter Results * CULTURE, URINE (04/14/2021 3:09 PM CDT) CULTURE RESULTS KLEBSIELLA PNEUMONIAE 04/16/2021 3:32 PM CDT [facility] CULTURE RESULTS ALSO MIXED GROWTH OF DISTAL URETHRA CONTAMINANTS. 04/16/2021 3:32 PM CDT [facility] Culture URINE SPECIMEN COLLECTION, CLEAN CATCH / Unknown Non-Phlebotomy Collection / Unknown 04/14/2021 3:09 PM CDT 04/14/2021 4:21 PM CDT Narrative Organism Antibiotic Method Susceptibility Klebsiella pneumoniae Cefazolin [facility] VITEK IIB <=4 mcg/ml: Susceptible Klebsiella pneumoniae Cefepime [facility] VITEK IIB <=1 mcg/ml: Susceptible Klebsiella pneumoniae Ceftriaxone [facility] VITEK IIB <=1 mcg/ml: Susceptible Klebsiella pneumoniae Gentamicin [facility] VITEK IIB <=1 mcg/ml: Susceptible Klebsiella pneumoniae Levofloxacin [facility] VITEK IIB <=0.12 mcg/ml: Susceptible Klebsiella pneumoniae Meropenem [facility] VITEK IIB <=0.25 mcg/ml: Susceptible Klebsiella pneumoniae Nitrofurantoin [facility] VITEK IIB 128 mcg/ml: Resistant Klebsiella pneumoniae Piperacillin/Tazobactam [facility] VIT EK IIB <=4 mcg/ml: Susceptible Klebsiella pneumoniae Tobramycin [facility] VITEK IIB <=1 mcg/ml: Susceptible Klebsiella pneumoniae Trimeth/Sulfamethoxazole [facility] AKI IIB <=20 mcg/ml: Susceptible us Oswaldo Serrano MD MICROBIOLOGY - [facility] Final Result [facility] [address] [place] [address], * URINALYSIS REFLEX IF INDICATED BY ABNORMAL RESULTS (04/14/2021 3:09 PM CDT) SPECIFIC GRAVITY 1.010 1.003 - 1.030 04/14/2021 3:52 PM CDT [facility] URINE PH 5.0 5.0 - 9.0 04/14/2021 3:52 PM CDT [facility] WBC ESTERASE Negative Negative 04/14/2021 3:52 PM CDT [facility] NITRITE Negative Negative 04/14/2021 3:52 PM CDT [facility] PROTEIN, RANDOM URINE Negative Negative 04/14/2021 3:52 PM CDT [facility] URINE GLUCOSE, QUAL Negative Negative 04/14/2021 3:52 PM CDT [facility] URINE KETONES Negative Negative 04/14/2021 3:52 PM CDT [facility] UROBILINOGEN Normal Normal mg/dL 04/14/2021 3:52 PM CDT [facility] URINE BILIRUBIN Negative Negative 3:52 PM CDT [facility] URINE BLOOD Negative Negative jolene/ul 04/14/2021 3:52 PM CDT [facility] URINALYSIS COLOR Yellow 04/14/20 3:52 PM CDT [facility] URINALYSIS CLARITY Clear 04/14/2021 3:52 PM CDT [facility] Urine URINE SPECIMEN COLLECTION, CLEAN CATCH / Unknown Non-Phlebotomy Collection / Unknown 04/14/2021 3:09 PM CDT 04/14/2021 3:45 PM CDT Oswaldo Serrano MD URINE ORDERABLES Final Resu lt [facility] #1 [place] [address] documented in this encounter Visit Diagnoses Diagnosis Urinary frequency- Primary documented in this encounter Additional Health Concerns Infection Onset Date Last Indicated Resolved Time COVID - 19 07/28/2021 07/29/2021 08/17/2021 12:1 6 AM KITCHEN HAND Assessment Noted Time PHQ-9 Depression Total Score: 2 07/18/20 4:26 PM CDT documented as of this encounter Care Teams Insole Tack Puller Hand Relationship Specialty Start Date End Date Oswaldo Serrano MD #[address] [address] PCP - General Family Medicine 05/19/17 Angel Crowe DPM #[address] [address] Consulting Physician Podiatry 06/16/17 Mora Fritz Behavioral Health Navigator 06/15/18 documented as of this encounter
--- OUTSIDE RECORDS SUMMARY | 2024-10-07 00:26 | XMS_ITS | Encounter Summary ---
Author Organization [facility] Care Team Providers Care Drying Tumbler Operator Name Role Phone Oswaldo Serrano MD Primary Care Provider [phone] Angel Crowe DPM Unavailable [phone] Mora Fritz Unavailable Unavailable Encounter Details Date Type Department Care Team (Latest Contact Info) Description 03/06/2021 Travel Social History Tobacco Use Types Packs/Day [...] st Contact Info) Description 10/08/2024 2:15 PM PRODUCTION TRAINER Office Visit [facility] UROLOGY #2 [place] [phone] Orlin Urbina, SOUND DESIGNER, DIGITAL MEDIA INTERN #2 [place] [address] 10/18/2024 2:15 PM PRODUCTION TRAINER [facility]ment [facility] 1 [place] [phone] Oswaldo Serrano MD #2 [facility] [address] [place] [address] Discharge Disposition: Discharged to home or Selfcare 11/29/2024 2:30 PM PRODUCTION TRAINER Office Visit [facility] - [place] #2 [place] [phone] Oswaldo Serrano MD #2 [facility] [address] [place] [address] 11/30/2024 3:00 PM PRODUCTION TRAINER Office Visit [facility] - [place] #2 [place] [phone] Ok Jorge MD #2 [facility] [address] [place] [address] documented as of this encounter Visit Diagnoses Not on filedocumented in this encounter Additional Health Concerns Assessment Noted Time PHQ-9 Depression Total Score: 2 07/18/20 20 4:26 PM CDT documented as of this encounter Care Teams Drying Tumbler Operator Relationship Specialty Start Date End Date Oswaldo Serrano MD #[address] [address] PCP - General Family Medicine 05/19/17 Angel Crowe DPM #[address] [address] Consulting Physician Podiatry 06/16/17 Mora Fritz Behavioral Health Navigator 06/15/18 documented as of this encounter
--- OUTSIDE RECORDS SUMMARY | 2024-10-07 00:26 | XMS_ITS | Encounter Summary ---
Author Organization [facility] Address [address] [place] [address] Phone Care Team Providers Care Transportation Manager Name Role Phone Oswaldo Serrano MD Primary Care Provider Angel Crowe DPM Unavailable [phone] Mora Fritz Unavailable Unavailable Reason for Visit * Reason Comments Diabetes Mellitus Follow up Encounter Details Date Type Department Care Team (Late st Contact Info) Description 03/17/2021 3:30 PM CDT [facility]medicine [facility] #2 [place] [address] Ok Jorge MD #[address] [address] Type 2 diabetes mellitus with diabetic polyneuropathy, with long-term current use of insulin (HCC) (Primary Dx); Insulin dose changed (HCC) Social History Tobacco Use Types Packs/Day Years [...] PM CDT documented as of this encounter Patient Instructions * Patient Instructions* Ok Jorge MD - 03/17/2021 3:30 PM CDT Please take Lantus 17 units in the morning Please take Humalog 16-16-14 units before each meal Please use [...] Progress Notes * Ok Jorge MD - 03/17/2021 3:30 PM CDT Subject&Objective This was a telemedicine visit with Loretta Penn which took place via Telephone. Loretta Penn is a 60-year-old woman who has type 2 diabetes mellitus. 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 Other pertinent health history includes hypertension, dyslipidemia, and obesity. The patient was initially diagnosed with diabetes >10 years ago. Currently, Ms. Penn takes Lantus 17 units in the morning and Humalog 14 units before each meal for management of hyperglycemia. The patient reports infrequent, mild hypoglycemic events with intact symptoms of hypoglycemia awareness. The patient denied severe low blood sugar events requiring third republican intervention. The patient and her sister reported that her blood sugars have been runningmostly between 150 and 200 mg/dL. Hemoglobin A1c obtained in December 2019 was 9.2%. Assessment and Plan Loretta Penn is a middle-aged woman with type 2 diabetes mellitus whose glycemic control was suboptimal based on review of her capillary blood glucose report. High blood glucose in spite of correctional factor insulin indicates that there is room to increase Humalog before each meal. Treatment consideration and lifestyle modification were discussed with her and her sister at some length. She will take Humalog 16-16-14 units before each meal and continue Lantus 17 units in the morning for management of hyperglycemia. The patient will return for office reevaluation in 3 months. PLAN: 1. Take Lantus 17 units in the morning 2. Take Humalog 16-16-14 units before each meal 3. Correctional factor insulin dosed at 1:30 if CBG is > 140 mg/dl 4. Monitor blood sugar QAC/QHS 5. Bring CBG log for review 6. Contact Endocrinology Clinic for low blood sugar events 7. RTC in 3 months The patient was assessed via telephone for a duration of 11 minutes, regarding hyperglycemia. The patient verbally consented for this service to be performed and billed. Ok Jorge MD 03/17/2021 documented in this encounter Plan of Treatment Upcoming Encounters Date Type Department Care Team (Late st Contact Info) Description 10/08/2024 2:15 PM ASSISTANT HVAC MECHANIC Office Visit [facility] UROLOGY #2 [place] [address] Orlin Urbina, INTRANET DEVELOPER, CREPE BOX TENDER #2 [place] [address] 10/18/2024 2:15 PM ASSISTANT HVAC MECHANIC [facility]ment [facility] 1 [place] [address] Oswaldo Serrano MD #[address] [address] Discharge Disposition: Discharged to home or Selfcare 11/29/2024 2:30 PM ASSISTANT HVAC MECHANIC Office Visit [facility] - Family Medicine - [place] #2 [place] [address] Oswaldo Serrano MD #[address] [address] 11/30/2024 3:00 PM ASSISTANT HVAC MECHANIC Office Visit [facility] - Endocrinology - [place] #2 [place] [address] Ok Jorge MD #[address] [address] documented as of this encounter Visit Diagnoses Diagnosis Type 2 diabetes mellitus with diabetic polyneuropathy, with long-term current use of insulin (HCC)- Primary Insulin dose changed (HCC) documented in this encounter Additional Health Concerns Assessment Noted Time PHQ-9 Depression Total Score: 2 07/18/20 20 4:26 PM CDT documented as of this encounter Care Teams Transportation Manager Relationship Specialty Start Date End Date Oswaldo Serrano MD #[address] [address] PCP - General Family Medicine 05/19/17 Angel Crowe DPM #[address] [address] Consulting Physician Podiatry 06/16/17 Mroa Fritz Behavioral Health Navigator 06/15/18 documented as of this encounter
--- OUTSIDE RECORDS SUMMARY | 2024-10-07 00:26 | XMS_ITS | Encounter Summary ---
Author Organization [facility] Address [address] [place] [address] Phone Care Team Providers Care Professional Security Officer Name Role Phone Oswaldo Serrano MD Primary Care Provider [phone] Angel Crowe DPM Unavailable [phone] Mora Fritz Unavailable Unavailable Reason for Referral * Radiology Services (Routine) - Closed Specialty Diagnoses / Procedures Referred By Praful ferro Referred To Contact Radiology Diagnoses Elevated LFTs Procedures US ABDOMEN LIMITED LEVEL 3 THREE ORGAN Oswaldo Serrano MD #[address] [address] Phone: tel: fax: Referral ID Status Reason Start Date Expiration Date Visits Re quested Visits Authorized [id number] Closed 02/15/2021 1 1 Reason for Visit * Radiology Services (Routine) - Closed Specialty Diagnoses / Procedures Referred By Contac t Referred To Contact Radiology Diagnoses Elevated LFTs Procedures US ABDOMEN LIMITED LEVEL 3 THREE ORGAN Oswaldo Serrano MD #[address] [address] Phone: tel: fax: Referral ID Status Reason Start Date Expiration Date Visits Re quested Visits Authorized [id number] Closed 02/15/2021 1 1 Encounter Details Date Type Department Care Team (Latest Contact Info) Description 03/06/2021 9:11 AM CDT - 03/06/2021 11:59 PM CDT Hospital Encounter [facility] Ultrasound 1 [place] [address] Oswaldo Serrano MD #[address] [address] Discharge Disposition: Discharged to home or Selfcare [...] TK 1 T PO TID 0 04/28/2017 Insulin Syringe-Needle U-100 (TRUEPLUS INSULIN SYRINGE) 31G X 5/16 0.5 ML Misc USE 4 TIMES DAILY 400 Each 3 2019 Lancets Misc Test four times daily. E11.9, insulin dependent 400 Lancet 3 2019 albuterol 108 (90 Base) MCG/ACT Aerosol Solution 02/14/2021 08/26/20 2 2 ASPIR-LOW 81 MG Tablet Delayed Response 05/24/2017 2 Blood Pressure Monitoring (Blood Pressure Cuff) MiscIndications:E ssential hypertension Dispense battery-powered arm cuff (Dx: I10) 1 Each 2020 2 carvedilol (COREG) 25 MG Tablet 25 mg 2 times daily. 05/06/2017 4 Cyanocobalamin (B-12) 500 MCG Tablet Take 1 Tablet by mouth daily for 90 doses. 90 Tablet 3 02/15/2021 1 desmopressin (DDAVP) 0.2 MG TabletIndications :Nocturnal enuresis Take 1 Tab by mouth nightly. Limit intake of liquids after the evening meal. 90 Tab 3 10/29/2020 2 diphenhydrAMINE (BENADRYL) 25 MG TabletIndications :Insomnia,itching Take 25 mg by mouth every 6 hours as needed for Itching or Sleep. 05/24/2017 2 DOK 100 MG Capsule TAKE ONE CAPSULE BY MOUTH TWICE DAILY 60 Capsule 2 01/22/2021 1 ergocalciferol (VITAMIN D) [address]646 UNIT CapsuleIndication s:Vitamin D deficiency TAKE ONE CAPSULE BY MOUTH ONCE WEEKLY 4 Capsule 2 02/18/2021 1 escitalopram (LEXAPRO) 10 MG Tablet TAKE ONE TABLET BY MOUTH DAILY 90 Tab 3 09/18/2020 1 fluconazole (DIFLUCAN) 150 MG Tablet TAKE 1 [...] daily. E11.9, insulin dependent 400 Strip 3 03/26/2020 1 insulin degludec (Tresiba FlexTouch) 100 UNIT/ML Solution Pen-injector Tresiba FlexTouch U-100 100 unit/mL (3 mL) insulin pen 10/10/1969 3 insulin lispro (HumaLOG) 100 UNIT/ML Solution 14 UNITS BEFORE EACH MEAL --- ISF OF 1:25 UP TO 80 UNITS PER DAY 30 mL 2 12/04/2020 1 Insulin Pen Needle (PEN NEEDLES 31GX5/16 ) 31G X 8 MM Misc Three times a day 300 Each 3 07/01/2017 2 Lantus 100 UNIT/ML Solution 17 Units by Subcutaneous route every morning. 10 mL 2 02/13/2021 1 levothyroxine (SYNTHROID) 50 MCG Tablet TAKE ONE TABLET BY MOUTH EVERY MORNING 90 Tablet 3 12/10/2020 2 lisinopril (PRINIVIL, ZESTRIL) 5 MG TabletIndications :Orthostatic hypotension TAKE ONE TABLET BY MOUTH DAILY 90 Tab 2 11/13/2020 1 nortriptyline (PAMELOR) 10 MG Capsule Take 1 Cap by mouth nightly. 90 Cap 3 09/16/2020 1 omeprazole (PriLOSEC) 20 MG CAPSULE DELAYED RELEASE TAKE ONE CAPSULE BY MOUTH DAILY 90 Capsule 3 01/22/2021 2 oxybutynin (DITROPAN) 5 MG TabletIndications :OAB (overactive bladder) TAKE ONE TABLET BY MOUTH DAILY 90 Tab 3 10/06/2020 1 potassium chloride SA (KLORCON M) 20 MEQ Tablet Controlled Release potassium chloride 20 mEq tablet,ER particles/crystal s 10/10/1969 2 potassium chloride SA (KLORCON M) 20 MEQ Tablet Controlled ReleaseIndication s:Chronic congestive heart failure, unspecified heart failure type (HCC) Take 1 Tab by mouth daily. 90 Tab 3 11/12/2020 2 rivaroxaban (Xarelto) 20 MG Tablet Take 20 mg by mouth daily (with dinner). Take with food. 4 documented as of this encounter Plan of Treatment Upcoming Encounters Date Type Department Care Team (Late st Contact Info) Description 10/08/2024 2:15 PM ADDRESSER Office Visit [facility] UROLOGY #2 [place] [address] Orlin Urbina APRN, PRECISION MACHINING INSTRUCTOR #[address] [facility] [address] 10/18/2024 2:15 PM ADDRESSER Appointment [facility] Mammography 1 [place] [address] Oswaldo Serrano MD #2 [facility] [address] [place] [address] Discharge Disposition: Discharged to home or Selfcare 11/29/2024 2:30 PM ADDRESSER Office Visit [facility] - [place] #2 [place] [address] Oswaldo Serrano MD #2 [facility] [address] [place] [address] 11/30/2024 3:00 PM ADDRESSER Office Visit [facility] Endocr[facility]ology - [place] #2 [place] [address] Ok Jorge MD #2 [facility] [address] [place] [address] documented as of this encounter Procedures Procedure Name Priority Date/Time Associated Diagnosis Comments US ABDOMEN LIMITED LEVEL 3 THREE ORGAN Routine 03/06/2021 9:34 AM CDT Elevated LFTs documented in this encounter Results * US LIVER, PANCREAS AND GALLBLADDER (03/06/2021 9:34 AM CDT) Anatomical Region Laterality Modality Abdomen N/A Ultrasound 03/06/2021 3:57 PM CDT Impressions 03/06/2021 4:00 PM CDT IMPRESSION: ?? No hepatic mass or biliary ductal dilatation. Cholecystectomy. Narrative 03/06/2021 4:00 PM CDT EXAM DESCRIPTION: ?? US ABDOMEN LIMITED LEVEL 3 THREE ORGAN REASON FOR STUDY: ?? Elevated LFTs. ??Increased alk-phos, 168 on 02/27/2021. TECHNIQUE: ??Ultrasound of the right upper quadrant of the abdomen was performed with grayscale and color doppler. COMPARISON: ?? Renal ultrasound 06/16/2017 FINDINGS: ??PANCREAS: ??Visualized portions of the pancreas are within normal limits. Portions of the pancreatic body and tail are obscured due to bowel gas. LIVER: ??Mildly coarsened hepatic parenchymal echotexture. ??No hepatic mass is identified. ??The right lobe measures 17 cm in length. GALLBLADDER: ??Cholecystectomy. BILIARY: ??There is no intrahepatic or extrahepatic biliary ductal dilatation. Common bile duct measures ??7 mm in diameter. RIGHT KIDNEY: ??Normal size. Normal echogenicity. No solid mass or cyst. ??No hydronephrosis. Measures ??11.5 cm in length. OTHER: ??No other significant findings. THIS IS AN ELECTRONICALLY VERIFIED FINAL REPORT 03/06/2021 3:57 PM - Electronically signed by Joe Adair M.D. DL: AIDA D: ??03/06/2021 3:57 PM T: ??03/06/2021 3:57 PM Report ID: [id number] Reading Location: ??[id number] Procedure Note Joe Adair MD - 03/06/2021 EXAM DESCRIPTION: US ABDOMEN LIMITED LEVEL 3 THREE ORGAN REASON FOR STUDY: Elevated LFTs. Increased alk-phos, 168 on 02/27/2021. TECHNIQUE: Ultrasound of the right upper quadrant of the abdomen was performed with grayscale and color doppler. COMPARISON: Renal ultrasound 06/16/2017 FINDINGS: PANCREAS: Visualized portions of the pancreas are within normal limits. Portions of the pancreatic body and tail are obscured due to bowel gas. LIVER: Mildly coarsened hepatic parenchymal echotexture. No hepatic mass is identified. The right lobe measures 17 cm in length. GALLBLADDER: Cholecystectomy. BILIARY: There is no intrahepatic or extrahepatic biliary ductal dilatation. Common bile duct measures 7 mm in diameter. RIGHT KIDNEY: Normal size. Normal echogenicity. No solid mass or cyst. No hydronephrosis. Measures 11.5 cm in length. OTHER: No other significant findings. THIS IS AN ELECTRONICALLY VERIFIED FINAL REPORT 03/06/2021 3:57 PM - Electronically signed by Joe Adair M.D. DL: DL Report ID: [id number] Reading Location: [id number] IMPRESSION: No hepatic mass or biliary ductal dilatation. Cholecystectomy. Oswaldo Serrano MD IM US ORDERABLES Final Res ult documented in this encounter Visit Diagnoses Diagnosis Elevated LFTs Other abnormal blood chemistry documented in this encounter Additional Health Concerns Assessment Noted Time PHQ-9 Depression Total Score: 2 07/18/20 20 4:26 PM CDT documented as of this encounter Care Teams Professional Security Officer Relationship Specialty Start Date End Date Oswaldo Serrano MD #[address] [address] PCP - General Family Medicine 05/19/17 Angel Crowe DPM #[address] [address] Consulting Physician Podiatry 06/16/17 Mora Fritz Behavioral Health Navigator 06/15/18 documented as of this encounter
--- OUTSIDE RECORDS SUMMARY | 2024-10-07 00:26 | XMS_ITS | Encounter Summary ---
Author Organization [facility] Address [address] [place] [address] Phone Care Team Providers Care Gum Rolling Machine Operator Name Role Phone Oswaldo Serrano MD Primary Care Provider Angel Crowe DPM Unavailable [phone] Mora Fritz Unavailable Unavailable Reason for Visit * Reason Comments Medication Refill Encounter Details Date Type Department Care Team (Late st Contact Info) Description 09/30/2021 Refill [facility] [place] #2 [place] [address] Ok Jorge MD #[address] [address] Medication Refill Social History Tobacco [...] Telephone Encounter - Ok Jorge MD - 09/30/2021 10:47 PM CST Updated Rx sent TRAINER documented in this encounter Plan of Treatment Upcoming Encounters Date Type Department Care Team (Late st Contact Info) Description 10/08/2024 2:15 PM LEAD TRAINER Office Visit [facility] PHYSICIAN [facility] UROLOGY #2 [place] [address] Orlin Urbina, WIREWORKER SUPERVISOR, FIELD BROOMER #2 [place] [address] 10/18/2024 2:15 PM LEAD TRAINER [facility] 1 [place] [address] Oswaldo Serrano MD #[address] [address] Discharge Disposition: Discharged to home or Selfcare 11/29/2024 2:30 PM LEAD TRAINER Office Visit [facility] - [place] #2 [place] [address] Oswaldo Serrano MD #[address] [address] 11/30/2024 3:00 PM LEAD TRAINER Office Visit [facility] - [place] #2 [place] [address] Ok Jorge MD #2 [facility] [address] [place] [address] documented as of this encounter Visit Diagnoses Not on filedocumented in this encounter Additional Health Concerns Assessment Noted Time PHQ-9 Depression Total Score: 2 07/18/20 20 4:26 PM CDT documented as of this encounter Care Teams Gum Rolling Machine Operator Relationship Specialty Start Date End Date Oswaldo Serrano MD #2 [facility] [address] [place] [address] PCP - General Family Medicine 05/19/17 Angel Crowe DPM #2 [facility] [address] [place] [address] Consulting Physician Podiatry 06/16/17 Mora Fritz Behavioral Health Navigator 06/15/18 documented as of this encounter
--- OUTSIDE RECORDS SUMMARY | 2024-10-07 00:26 | XMS_ITS | Encounter Summary ---
Author Organization [facility] Address [address] [place] [address] Phone Care Team Providers Care Mold Sander Name Role Phone Oswaldo Serrano MD Primary Care Provider [phone] Angel Crowe DPM Unavailable Mora Fritz Unavailable Unavailable Ok Jorge MD Unavailable Reason for Visit * Reason Onset Date Comments Medication Refill 07/29/2021 Encounter Details Date Type Department Care Team (Late st Contact Info) Description 07/29/2021 Refill [facility] - [place] #2 [place] [address] Oswaldo Serrano MD #[address] [address] Medication Refill Social History Tobacco Use Types [...] Telephone Encounter - Mica Morales RN - 07/29/2021 11:53 AM CDT Medication failed the protocol, provider to review and approve the medication order if appropriate. Requested Prescriptions Pending Prescriptions Disp Refills docusate sodium (DOK) 100 MG Capsule 60 Capsule 2 Sig: Take 1 Capsule by mouth 2 times daily. Laxatives Protocol Failed - 07/29/2021 8:12 AM Failed - Up to date with colon cancer screening Health Maintenance Passed - Visit with relevant provider in past 12 months or upcoming 90 days Recent Visits Date Type Provider Dept 07/28/21 Telemedicine Oswaldo Serrano MD [facility] 05/14/21 Office Visit Connor Yuan APN, BONE TENDER [facility] 02/27/21 Office Visit Oswaldo Serrano MD [facility] 02/16/21 Office Visit Oswaldo Serrano MD [facility] 01/14/21 Office Visit Connor Yuan APN, BONE TENDER [facility] [place] 12/19/20 Office Visit Oswaldo Serrano MD [facility] 12/18/20 Telemedicine Oswaldo Serrano MD [facility] 12/08/20 Telemedicine Oswaldo Serrano MD [facility] 11/07/20 Telemedicine Connor Yuan APN, YUDI [facility] 10/09/20 Office Visit Oswaldo Serrano MD [facility] Showing recent visits within past 365 days and meeting all other requirements Today's Visits Date Type Provider Dept 07/29/21 [address], [facility] Nurse Layne [facility] Showing today's visits and meeting all other requirements Future Appointments Date Type Provider Dept 08/17/21 Appointment Oswaldo Serrano MD [facility] Showing future appointments within next 90 days and meeting all other requirements [facility] Not Delegated - Over the Counter: OTC Failed - 07/29/2021 8:12 AM Failed - This refill cannot be delegated Passed - Valid encounter within last 12 months Past Office Visits Recent Outpatient Visits Yesterday URI, acute [facility] Oswaldo Moreno MD 2 months ago Acute bronchitis, unspecified organism [facility] Connor Hutchinson APN, YUDI 5 months ago Urinary frequency [facility] Oswaldo Moreno MD 5 months ago B12 deficiency [facility] Oswaldo Moreno MD 6 months ago UTI symptoms [facility] - DhirajConnor Riley APN, BONE TENDER Upcoming Appointments Future Appointments Today Clinic, [facility] Nurse [facility] Ok [facility] weeks Oswaldo Serrano MD [facility] [place], [facility] PROCESS ARCHITECT - Recent and Past Visits Recent Visits Date Type Provider Dept 07/28/21 Telemedicine Oswaldo Serrano MD [facility] 05/14/21 Office Visit Connor Yuan APN, YUDI [place] 02/27/21 Office Visit Oswaldo Serrano MD [facility] 02/16/21 Office Visit Oswaldo Serrano MD [facility] 01/14/21 Office Visit Connor Yuan APN, BONE TENDER [facility] 12/19/20 Office Visit Oswaldo Serrano MD [facility] 12/18/20 Telemedicine Oswaldo Serrano MD [facility] 12/08/20 Telemedicine Oswaldo Serrano MD [facility] 11/07/20 Telemedicine Connor Yuan APN, YUDI [facility] 10/09/20 Office Visit Oswaldo Serrano MD [facility] Showing recent visits within past 460 days with a meds authorizing provider and meeting all other requirements Future Appointments Date Type Provider Dept 08/17/21 Appointment Oswaldo Serrano MD [facility] Showing future appointments within next 90 days with a meds authorizing provider and meeting all other requirements * Telephone Encounter - Darrin Richard - 07/29/2021 8:11 AM CDT Received a faxed Rx request from pharmacy. Reordered refill medication(s) requested and pended for nurse and physician/JUAN review. Refill encounter routed to nurse Johnnyrilavern's pool for processing. documented in this encounter Plan of Treatment Upcoming Encounters Date Type Department Care Team (Late st Contact Info) Description 10/08/2024 2:15 PM MATE FISHING VESSEL Office Visit [facility] UROLOGY #2 [place] [address] Orlin Urbina APRN, BONE TENDER #2 [place] [address] 10/18/2024 2:15 PM MATE FISHING VESSEL Appointment [facility] Mammography 1 [place] [address] Oswaldo Serrano MD #[address] [address] Discharge Disposition: Discharged to home or Selfcare 11/29/2024 2:30 PM MATE FISHING VESSEL Office Visit [facility] Medicine [facility] #2 [place] [address] Oswaldo Serrano MD #[address] [address] 11/30/2024 3:00 PM MATE FISHING VESSEL Office Visit [facility] Endocrinology [facility] #2 [place] [address] Ok Jorge MD #[address] [address] documented as of this encounter Visit Diagnoses Not on filedocumented in this encounter Additional Health Concerns Infection Onset Date Last Indicated Resolved Time COVID - 19 07/28/2021 07/29/2021 08/17/2021 12:1 6 AM MATE FISHING VESSEL Assessment Noted Time PHQ-9 Depression Total Score: 2 07/18/20 20 4:26 PM CDT documented as of this encounter Care Teams Mold Sander Relationship Specialty Start Date End Date Oswaldo Serrano MD #[address] [address] PCP - General Family Medicine 05/19/17 Angel Crowe DPM #[address] [address] Consulting Physician Podiatry 06/16/17 Mora Fritz [place] Behavioral Health Navigator 06/15/18 Ok Jorge MD #[address] [address] Consulting Physician Endocrinology 05/12/22 documented as of this encounter
--- OUTSIDE RECORDS SUMMARY | 2024-10-07 00:26 | XMS_ITS | Encounter Summary ---
Author Organization [facility] Address [address] [place] [address] Phone Care Team Providers Care First Leveler Name Role Phone Oswaldo Serrano MD Primary Care Provider [phone] Angel Crowe DPM Unavailable Mora Fritz Unavailable Unavailable Encounter Details Date Type Department Care Team (Late st Contact Info) Description 02/27/2021 11:00 AM CDT Lab [facility] LAB #2 [facility] [address] [place] [address] Lab [place] [facility]/Ancillary Vitamin D deficiency; Elevated LFTs; Elevated creatine kinase; Urinary frequency Discharge Disposition: Discharged to home or Selfcare [...] have Coronavirus / COVID-19? No / Unsure 02/27/2021 10:22 AM CDT documented as of this encounter Progress Notes * Linh Mcclure - 02/27/2021 11:00 AM CDT Loretta presents for lab draw per order of Jyoti dated . Specimen collected from right antecubital without incident. [facility] documented in this encounter Plan of Treatment Upcoming Encounters Date Type Department Care Team (Late st Contact Info) Description 10/08/2024 2:15 PM CLIENT APPLICATION SUPPORT SPECIALIST Office Visit [facility] UROLOGY #2 [place] [address] Orlin Urbina APRN, COLORING CHECKER #2 [place] [address] 10/18/2024 2:15 PM CLIENT APPLICATION SUPPORT SPECIALIST Appointment [facility] Mammography 1 [place] [address] Oswaldo Serrano MD #[address] [address] Discharge Disposition: Discharged to home or Selfcare 11/29/2024 2:30 PM CLIENT APPLICATION SUPPORT SPECIALIST Office Visit [facility] #2 [place] [address] Oswaldo Serrano MD #[address] [address] 11/30/2024 3:00 PM CLIENT APPLICATION SUPPORT SPECIALIST Office Visit [facility] - [place] #[address] [place] [address] Ok Jorge MD #[address] [facility] [address] [place] [address] documented as of this encounter Procedures Procedure Name Priority Date/Time Associated Diagnosis Comments VITAMIN D, 25 HYDROXY TOTAL Routine 02/27/2021 11:19 AM CDT Vitamin D deficiency URINALYSIS REFLEX IF INDICATED BY ABNORMAL RESULTS Today 02/27/2021 11:19 AM CDT Urinary frequency HEPATIC FUNCTION PANEL Routine 02/27/2021 11:19 AM CDT Elevated LFTs CULTURE, URINE Today 02/27/2021 11:19 AM CDT Urinary frequency CREATINE KINASE (CK) TOTAL Routine 02/27/2021 11:19 AM CDT Elevated creatine kinase documented in this encounter Results * CULTURE, URINE (02/27/2021 11:19 AM CDT) CULTURE RESULTS KLEBSIELLA PNEUMONIAE 03/01/2021 7:03 PM CDT [facility] Culture URINE SPECIMEN COLLECTION, CLEAN CATCH / Unknown Non-Phlebotomy Collection / Unknown 02/27/2021 11:19 AM CDT 02/27/2021 11:19 AM CDT Narrative Organism Antibiotic Method Susceptibility Klebsiella pneumoniae Ampicillin [facility] VITEK II Resistant Klebsiella pneumoniae Ampicillin/sulbactam [facility] VITEK II <=2 mcg/ml: Susceptible Klebsiella pneumoniae Cefazolin [facility] VITEK II <=4 mcg/ml: Susceptible Klebsiella pneumoniae Cefepime [facility] VITEK II <=1 mcg/ml: Susceptible Klebsiella pneumoniae Ceftriaxone [facility] VITEK II <=1 mcg/ml: Susceptible Klebsiella pneumoniae Gentamicin [facility] VITEK II <=1 mcg/ml: Susceptible Klebsiella pneumoniae Levofloxacin [facility] VITEK II <=0.12 mcg/ml: Susceptible Klebsiella pneumoniae Meropenem [facility] VITEK II <=0.25 mcg/ml: Susceptible Klebsiella pneumoniae Nitrofurantoin [facility] VITEK II 64 mcg/ml: Intermediate Klebsiella pneumoniae Piperacillin/Tazobactam [facility] VIT EK II <=4 mcg/ml: Susceptible Klebsiella pneumoniae Tobramycin [facility] VITEK II <=1 mcg/ml: Susceptible Klebsiella pneumoniae Trimeth/Sulfamethoxazole [facility] AKI II <=20 mcg/ml: Susceptible us Oswaldo Serrano MD MICROBIOLOGY - GENERAL ORDE ARNALDO Final Result [facility] [address] [place] [address], [place] * URINALYSIS REFLEX IF INDICATED BY ABNORMAL RESULTS (02/27/2021 11:19 AM CDT) SPECIFIC GRAVITY 1.010 1.003 - 1.030 02/27/2021 2:03 PM CDT [facility] URINE PH 5.0 5.0 - 9.0 02/27/2021 2:03 PM CDT [facility] WBC ESTERASE Negative Negative 02/27/2021 2:03 PM CDT [facility] NITRITE Negative Negative 02/27/2021 2:03 PM CDT [facility] PROTEIN, RANDOM URINE Negative Negative 02/27/2021 2:03 PM CDT [facility] URINE GLUCOSE, QUAL Negative Negative 02/27/2021 2:03 PM CDT [facility] URINE KETONES Negative Negative 02/27/2021 2:03 PM CDT [facility] UROBILINOGEN Normal Normal mg/dL 02/27/2021 2:03 PM CDT [facility] URINE BILIRUBIN Negative Negative 2:03 PM CDT [facility] URINE BLOOD Negative Negative jolene/ul 02/27/2021 2:03 PM CDT [facility] URINALYSIS COLOR Pale yellow 021 2:03 PM CDT [facility] URINALYSIS CLARITY Clear 02/27/2021 2:03 PM CDT [facility] Urine URINE SPECIMEN COLLECTION, CLEAN CATCH / Unknown Non-Phlebotomy Collection / Unknown 02/27/2021 11:19 AM CDT 02/27/2021 11:19 AM CDT Oswaldo Serrano MD URINE ORDERABLES Final Resu lt Performing Organization Address City/[facility]/ZIP Co de Phone Number [facility] LAB #1 [place] [address] * CREATINE KINASE (CK) TOTAL (02/27/2021 11:19 AM CDT) CK (CPK) 153 26 - 192 U/L 02/27/2021 1:36 PM CDT [facility] Blood Venipuncture / Unknown 02/27/2021 11:19 AM CDT 02/27/2021 11:19 AM CDT Oswaldo Serrano MD HEMATOLOGY ORDERABLES Final Result Performing Organization Address City/[facility]/ZIP Co de Phone Number [facility] LAB #1 [place] [address] * (ABNORMAL) HEPATIC FUNCTION PANEL (02/27/2021 11:19 AM CDT) T BILI 0.4 <=1.2 mg/dL 02/27/2021 1:36 PM CDT [facility] BILIRUBIN,DIRECT <0.3 <=0.3 mg/dL 02/27/2021 1:36 PM CDT [facility] ALKALINE PHOSPHATASE 168(H) 35 - 105 U/L 02/27/2021 1:36 PM CDT [facility] SGOT (AST) 15 <=32 U/L 02/27/2021 1:36 PM CDT [facility] SGPT (ALT) 22 <=41 U/L 02/27/2021 1:36 PM CDT [facility] TOTAL PROTEIN 7.4 6.0 - 8.3 g/dL 02/27/2021 1:36 PM CDT [facility] ALBUMIN 3.9 3.5 - 5.2 g/dL 02/27/2021 1:36 PM CDT [facility] Comment: The colormetric methods used for the determination of Albumin may lead to falsely elevated test results in patients suffering from renal failure or insufficiency due to interference with other proteins. Blood Venipuncture / Unknown 02/27/2021 11:19 AM CDT 02/27/2021 11:19 AM CDT Oswaldo Serrano MD CHEMISTRY ORDERABLES Final Result [facility] #1 [place] [address] * VITAMIN D, 25 HYDROXY TOTAL (02/27/2021 11:19 AM CDT) Pathologist [facility] VITAMIN D, 25 HYDROX 33 >=30 ng/mL 02/27/2021 1:51 PM CDT [facility] Blood Venipuncture / Unknown 02/27/2021 11:19 AM CDT 02/27/2021 11:19 AM CDT Narrative [facility] - 02/27/2021 1:51 PM CDT Published reference ranges for Vitamin D vary depending on time and place and method of testing, and on patient's age, sex, ethnicity and levels of other measured analytes such as parathormone, calcium and phosphorus. ??The result should be evaluated in conjunction with clinical findings and suspicions. [place] [employer] and [employer]ocrine Clinical Practice Guidelines: Status Vitamin D levels (ng/mL) Deficient <=20 At risk of inadequacy 21-29 Sufficient 30-100 Centers of Disease Control and Prevention Guidelines: Status Vitamin D levels (ng/mL) Deficient <13 At risk of inadequacy 13-19 Sufficient 20-50 Possibly harmful >50 References: [place] [employer], 2010 Dietary reference intakes for calcium and vitamin D. Guidry [place]: ??The National Academies Press. Eve M, Forrest N, Maksim BIRCH, et al., Evaluation, treatment, and prevention of Vitamin D deficiency: an Endocrinology Clinical Practice Guideline. JCEM 2011 96: 7 0267-9188. Faiza A, Manjinder C, Tyson Rockwell, et al., Vitamin D Status: ??[place], 2000- 1005, [facility] data brief, no. 59, MD Claudia: ??[facility] Statistics. 2010. us Connor Yuan APRN, COLORING CHECKER CHEMISTRY ORDERA BLES Final Result [facility] #1 [place] [address] documented in this encounter Visit Diagnoses Diagnosis Vitamin D deficiency Unspecified vitamin D deficiency Elevated LFTs Other abnormal blood chemistry Elevated creatine kinase Other nonspecific abnormal serum enzyme levels Urinary frequency documented in this encounter Additional Health Concerns Assessment Noted Time PHQ-9 Depression Total Score: 2 07/18/20 20 4:26 PM CDT documented as of this encounter Care Teams First Leveler Relationship Specialty Start Date End Date Oswaldo Serrano MD #[address] [address] PCP - General Family Medicine 05/19/17 Angel Crowe DPM #[address] [address] Consulting Physician Podiatry 06/16/17 Mora Fritz Behavioral Health Navigator 06/15/18 documented as of this encounter
--- OUTSIDE RECORDS SUMMARY | 2024-10-07 00:26 | XMS_ITS | Encounter Summary ---
Author Organization [facility] Address [address] [place] [address] Phone Care Team Providers Care Senior Software Tester Name Role Phone Oswaldo Serrano MD Primary Care Provider [phone] Angel Crowe DPM Unavailable Mora Fritz Unavailable Unavailable Reason for Visit * Reason Onset Date Comments Results 04/16/2021 Encounter Details Date Type Department Care Team (Late st Contact Info) Description 04/16/2021 Telephone [facility] #2 [place] [address] Oswaldo Serrano MD #[address] [address] Results Social History Tobacco Use Types Packs/Day [...] encounter Miscellaneous Notes * Telephone Encounter - Mervat Saavedra RN - 04/16/2021 3:14 PM CDT Patient's sister SAWYER Dobbs, notified and verbalized understanding * Telephone Encounter - Zainab Roblero RN - 04/16/2021 7:37 AM CDT ----- Message from Oswaldo Serrano MD sent at 04/15/2021 9:22 PM CDT ----- Levaquin ordered already. Patient aware. Thanks! documented in this encounter Plan of Treatment Upcoming Encounters Date Type Department Care Team (Late st Contact Info) Description 10/08/2024 2:[address] MACHINE OPERATOR Office Visit [facility] UROLOGY #2 [place] [address] Orlin Urbina, ELECTRICAL APPLIANCE REPAIRER, LAYOUT MECHANIC #2 [place] [address] 10/18/2024 2:[address] MACHINE OPERATOR Appointment [facility] Mammography 1 [place] [address] Oswaldo Serrano MD #[address] [address] Discharge Disposition: Discharged to home or Selfcare 11/29/2024 2:[address] MACHINE OPERATOR Office Visit [facility] Family Medicine [facility] #2 [place] [address] Oswaldo Serrano MD #[address] [place] [address] 11/30/2024 3:[address] MACHINE OPERATOR Office Visit [facility] Endocrinology [facility] #2 [place] [address] Ok Jorge MD #[address] [address] documented as of this encounter Visit Diagnoses Not on filedocumented in this encounter Additional Health Concerns Assessment Noted Time PHQ-9 Depression Total Score: 2 07/18/20 20 4:26 PM CDT documented as of this encounter Care Teams Senior Software Tester Relationship Specialty Start Date End Date Oswaldo Serrano MD #[address] [address] PCP - General Family Medicine 05/19/17 Angel Crowe DPM #[address] [address] Consulting Physician Podiatry 06/16/17 Mora Fritz Behavioral Health Navigator 06/15/18 documented as of this encounter
--- OUTSIDE RECORDS SUMMARY | 2024-10-07 00:26 | XMS_ITS | Encounter Summary ---
Author Organization [facility] Address [address] [place] [address] Phone Care Team Providers Care Glass Handler Name Role Phone Oswaldo Serrano MD Primary Care Provider Angel Crowe DPM Unavailable Mora Fritz Unavailable Unavailable Reason for Visit * Reason Onset Date Comments Medication Refill 03/12/2021 Encounter Details Date Type Department Care Team (Late st Contact Info) Description 03/12/2021 Refill [facility] - [place] #2 [place] [address] Ok Jorge MD #[address] [address] Medication Refill Social History [...] Telephone Encounter - Ynes Zuniga, RN - 03/12/2021 9:00 AM CDT Next appt: 03/17/2021 Requested Prescriptions Pending Prescriptions Disp Refills ??? Glucose Blood Strip 400 Strip 3 Sig: Test blood glucose 4x daily. E11.9, insulin dependent documented in this encounter Plan of Treatment Upcoming Encounters Date Type Department Care Team (Late st Contact Info) Description 10/08/2024 2:15 PM FINAL CIGAR AND BOX EXAMINER Office Visit [facility] UROLOGY #2 [place] [address] Orlin Urbina, COMPUTER SCIENCE INTERN, AIRPORT MAINTENANCE CHIEF #2 [place] [address] 10/18/2024 2:15 PM FINAL CIGAR AND BOX EXAMINER Appointment [facility] Mammography 1 [place] [address] Oswaldo Serrano MD #[address] [address] Discharge Disposition: Discharged to home or Selfcare 11/29/2024 2:30 PM FINAL CIGAR AND BOX EXAMINER Office Visit [facility] #2 [place] [address] Oswaldo Serrano MD #2 [facility] [address] [place] [address] 11/30/2024 3:00 PM FINAL CIGAR AND BOX EXAMINER Office Visit [facility] #2 [facility] [place] [address] Ok Jorge MD #[address] [place] [address] documented as of this encounter Visit Diagnoses Not on filedocumented in this encounter Additional Health Concerns Assessment Noted Time PHQ-9 Depression Total Score: 2 07/18/20 20 4:26 PM CDT documented as of this encounter Care Teams Glass Handler Relationship Specialty Start Date End Date Oswaldo Serrano MD #[address] [address] PCP - General Family Medicine 05/19/17 Angel Crowe DPM #[address] [address] Consulting Physician Podiatry 06/16/17 Mora Fritz [place] Behavioral Health Navigator 06/15/18 documented as of this encounter
--- OUTSIDE RECORDS SUMMARY | 2024-10-07 00:26 | XMS_ITS | Encounter Summary ---
Author Organization [facility] Address [address] [facility] [place] [address] Phone Care Team Providers Care Steam Shovel Runner Name Role Phone Oswaldo Serrano MD Primary Care Provider Angel Crowe DPM Unavailable [phone] Mora Fritz Unavailable Unavailable Reason for Visit * Reason Onset Date Comments Results 07/30/2021 Encounter Details Date Type Department Care Team (Late st Contact Info) Description 07/30/2021 Telephone [facility] [address] [place] [address] Oswaldo Serrano MD #[address] [address] Results Social History Tobacco Use [...] encounter Miscellaneous Notes * Telephone Encounter - Ruth Flores RN - 07/30/2021 2:48 PM CDT Sister (PRD) calling to check on COVID test results. documented in this encounter Plan of Treatment Upcoming Encounters Date Type Department Care Team (Late st Contact Info) Description 10/08/2024 2:15 PM FUR EXAMINER Office Visit [facility] #2 [place] [phone] Orlin Urbina, RACECOURSE BARRIER ATTENDANT, METAL PAINTER [address] [place] [address] 10/18/2024 2:15 PM FUR EXAMINER Appointment [facility] Mammography [address] [place] [id number] Oswaldo Serrano MD #[address] [address] Discharge Disposition: Discharged to home or Selfcare 11/29/2024 2:30 PM FUR EXAMINER Office Visit [facility] - Family Medicine [facility] #2 [place] [address] Oswaldo Serrano MD #[address] [address] 11/30/2024 3:00 PM FUR EXAMINER Office Visit [facility] - Endocrinology - [place] [address] [place] [address] Ok Jorge MD #[address] [address] documented as of this encounter Visit Diagnoses Not on filedocumented in this encounter Additional Health Concerns Infection Onset Date Last Indicated Resolved Time COVID - 19 07/28/2021 07/29/2021 08/17/2021 12:1 6 AM FUR EXAMINER Assessment Noted Time PHQ-9 Depression Total Score: 2 07/18/20 20 4:26 PM CDT documented as of this encounter Care Teams Steam Shovel Runner Relationship Specialty Start Date End Date Oswaldo Serrano MD #[address] [address] PCP - General Family Medicine 05/19/17 Angel Crowe DPM #[address] [address] Consulting Physician Podiatry 06/16/17 Mora Fritz Behavioral Health Navigator 06/15/18 documented as of this encounter
--- OUTSIDE RECORDS SUMMARY | 2024-10-07 00:26 | XMS_ITS | Encounter Summary ---
Author Organization [facility] Address [address] [place] [address] Phone Care Team Providers Care Cargo Operations Agent Name Role Phone Oswaldo Serarno MD Primary Care Provider [phone] Angel Crowe DPM Unavailable Mora Fritz Unavailable Unavailable Reason for Visit * Reason Comments ED Follow-up ED follow up to [facility] Encounter Details Date Type Department Care Team (Late st Contact Info) Description 05/14/2021 3:00 PM CDT Office Visit [facility] - Family Medicine - [place] [address] [place] [address] Connor Yuan APRN, HEALTH AND SAFETY TRAINER #[address] [address] Acute bronchitis, unspecified organism (Primary Dx) Discharge Disposition: Discharged to home or Selfcare [...] Sign Reading Time Taken Comments Blood Pressure 132/70 05/14/2021 2:56 PM CDT Pulse 87 05/14/2021 2:56 PM CDT Temperature 35.9 ??C (96.6 ??F) 05/14/2021 2:56 PM CD T Respiratory Rate 16 05/14/2021 2:56 PM CDT Oxygen Saturation 95% 05/14/2021 2:56 PM CDT Inhaled Oxygen Concentration - - Weight 139 kg (306 lb 6.4 oz) 05/14/2021 2:56 PM CDT Height 167.6 cm (5' 6 ) 05/14/2021 2:56 PM CDT Body Mass Index 49.45 05/14/2021 2:56 PM CDT documented in this encounter Progress Notes * Tanisha Panda - 05/14/2021 3:00 PM CDT Lorettakathy Penn, 60 y.o., female is here for ED Follow-up (ED follow up to bronchitis) Medication Refills: Patient reports/denies need for medication refills. Orders Pended: no Requested Prescriptions No prescriptions requested or ordered in this encounter Home Medications Medication Sig Start Date End Date Taking? Authorizing Provider albuterol 108 (90 Base) MCG/ACT Aerosol Solution 02/14/21 Yes Provider, MD Nica amoxicillin-clavulanate (AUGMENTIN) 875-125 MG Tablet TAKE 1 TABLET BY MOUTH EVERY 12 HOURS 05/07/21Yes Nica Muniz MD ASPIR-LOW 81 MG Tablet Delayed Response 05/24/17 Nica Muniz MD benzonatate (TESSALON) 100 MG Capsule TAKE ONE CAPSULE BY MOUTH EVERY 8 HOURS NEEDED FOR COUGH CONGESTION 05/07/21 Yes Nica Muniz MD Blood Glucose Monitoring Suppl Device Test blood glucose 4 times daily. E11.9, insulin dependent 12/19/19 Yes Ok Jorge MD Blood Pressure Monitoring (Blood Pressure Cuff) [facility] Dispense battery-powered arm cuff (Dx: I10) 12/19/20 Yes Oswaldo Serrano MD carvedilol (COREG) 25 MG Tablet 25 mg 2 times daily. 05/06/17 Yes Nica Muniz MD Cyanocobalamin (B-12) 500 MCG Tablet Take 1 Tablet by mouth daily for 90 doses. 02/15/21 05/16/21 Yes Oswaldo Serrano MD desmopressin (DDAVP) 0.2 MG Tablet Take 1 Tab by mouth nightly. Limit intake of liquids after the evening meal. 10/29/20 Yes Carson Michel MD dilTIAZem (CARDIZEM) 30 MG Tablet TK 1 T PO TID 04/28/17 Yes Nica Muniz MD diphenhydrAMINE (BENADRYL) 25 MG Tablet Take 25 mg by mouth every 6 hours as needed for Itching or Sleep. 05/24/17 Yes Nica Muniz MD DOK 100 MG Capsule TAKE ONE CAPSULE BY MOUTH TWICE DAILY 04/15/21 Yes Oswaldo Serrano MD ergocalciferol (VITAMIN D) [address] UNIT Capsule TAKE ONE CAPSULE BY MOUTH ONCE WEEKLY 05/13/21 Yes Oswaldo Serrano MD escitalopram (LEXAPRO) 10 MG Tablet TAKE ONE TABLET BY MOUTH DAILY 09/18/20 Yes Oswaldo Serrano MD fluconazole (DIFLUCAN) 150 MG Tablet TAKE 1 TABLET BY MOUTH 1 TIME FOR 1 DOSE Patient not taking: Reported on 02/27/2021 10/17/20 Nica Muniz MD fluticasone (FLONASE) 50 MCG/ACT Suspension 1-2 Sprays by Nasal route daily. Use in each nostril asdirected. Patient not taking: Reported on 2020 12/08/20 Oswaldo Serrano MD fluticasone (FLONASE) 50 MCG/ACT Suspension 2 Sprays by Nasal route daily. Use in each nostril as directed. Patient not taking: Reported on 2020 04/07/20 Connor Yuan APN, CNP furosemide (LASIX) 40 MG Tablet Take 1 Tab by mouth daily. 11/12/20 Yes Connor Yuan APN, CNP Glucose Blood Strip Test blood glucose 4x daily. E11.9, insulin dependent 03/12/21 Yes Ok Jorge MD insulin lispro (HumaLOG) 100 UNIT/ML Solution 14 UNITS BEFORE EACH MEAL --- ISF OF 1:25 UP TO 80 UNITS PER DAY 12/04/20 Yes Ok Jorge MD Insulin Pen Needle (PEN NEEDLES 31GX5/16 ) 31G X 8 MM Misc Three times a day 07/01/17 Yes Ok Jorge MD Insulin Syringe-Needle U-100 (TRUEPLUS INSULIN SYRINGE) 31G X 5/16 0.5 ML Misc USE 4 TIMES DAILY 12/19/19 Yes Ok Jorge MD Lancets Misc Test four times daily. E11.9, insulin dependent 12/19/19 Yes Ok Jorge MD Lantus 100 UNIT/ML Solution 17 Units by Subcutaneous route every morning. 02/13/21 Yes Ok Jorge MD levothyroxine (SYNTHROID) 50 MCG Tablet TAKE ONE TABLET BY MOUTH EVERY MORNING 12/10/20 Yes Oswaldo Serrano MD lisinopril (PRINIVIL, ZESTRIL) 5 MG Tablet TAKE ONE TABLET BY MOUTH DAILY 11/13/20 Yes Oswaldo Serrano MD nortriptyline (PAMELOR) 10 MG Capsule Take 1 Cap by mouth nightly. 09/16/20 Yes Oswaldo Serrano MD omeprazole (PriLOSEC) 20 MG CAPSULE DELAYED RELEASE TAKE ONE CAPSULE BY MOUTH DAILY 01/22/21 Yes Oswaldo Serrano MD oxybutynin (DITROPAN) 5 MG Tablet TAKE ONE TABLET BY MOUTH DAILY 10/06/20 Yes Carson Michel MD potassium chloride SA (KLORCON M) 20 MEQ Tablet Controlled Release Take 1 Tab by mouth daily. 11/12/20 Yes Connor Yuan APN, CNP predniSONE (DELTASONE) 20 MG Tablet TAKE 3 TABLETS BY MOUTH DAILY 05/07/21 Yes ProviderNica MD rivaroxaban (Xarelto) 20 MG Tablet Take 20 mg by mouth daily (with dinner). Take with food. Yes Provider, MD Nica There are no discontinued medications. I have reviewed the home medication list with the patient and family and have reconciled discrepancies. The list is [...] Exam 07/18/2019 ??? Pap Smear 06/06/2020 ??? Mammogram 10/17/2020 Orders Pended: no The following BPA's have been addressed with the patient today: BMI, Pneumonia, Colonoscopy, A1C, Mammogram and Pap * Connor Yuan APN, CNP - 05/14/2021 3:00 PM CDT Subjective: CC: ER F/U for bronchitis Loretta Penn is a 60-year-old female who presents the office today for ER follow-up for bronchitis. No records available. Patient was seen in [facility]. Of complaints of cough and worsening shortness breath. Chest x-ray was apparently negative. Diagnosed with bronchitis andprescribed prednisone and Augmentin. Also given Tessalon Perles which are not helping with cough and they make her dizzy. Finished a steroid still on antibiotics. No other acute complaints this time. The history is provided by the patient. No computer programmer analyst was used. ED Follow-up Associated symptoms include coughing. Pertinent negatives include no abdominal pain, arthralgias, chest pain, chills, congestion, fatigue, fever, headaches, myalgias, nausea, numbness, rash, sore throat or vomiting. Review of Systems Constitutional: Negative for chills, fatigue and fever. HENT: Negative for congestion, ear discharge, ear pain, postnasal drip, sinus pressure, sinus pain,sore throat and trouble swallowing. Eyes: Negative for photophobia, pain and discharge. Respiratory: Positive for cough and shortness of breath. Negative for chest tightness and wheezing. Cardiovascular: Negative for chest pain [...] albuterol 108 (90 Base) MCG/ACT Aerosol Solution, , Disp: , Rfl: ??? amoxicillin-clavulanate (AUGMENTIN) 875-125 MG Tablet, TAKE 1 TABLET BY MOUTH EVERY 12 HOURS, Disp: , Rfl: ??? ASPIR-LOW 81 MG Tablet Delayed Response, , Disp: , Rfl: ??? Blood Glucose Monitoring Suppl Device, Test blood glucose 4 times daily. E11.9, insulin dependent, Disp: 1 Each, Rfl: 0 ??? Blood Pressure Monitoring (Blood Pressure Cuff) [facility], Dispense battery- powered arm cuff (Dx: I10), Disp: 1 Each, Rfl: 0 ??? Calcium Carbonate-Vitamin D3 (Calcium 600/Vitamin D) 600-400 MG-UNIT Tablet, Use as directed, Disp: 60 Tablet, Rfl: 11 ??? carvedilol (COREG) 25 MG Tablet, 25 mg 2 times daily., Disp: , Rfl: ??? Cyanocobalamin (B-12) 500 MCG Tablet, Take 1 Tablet by mouth daily for 90 doses., Disp: 90 Tablet, Rfl: 3 ??? desmopressin (DDAVP) 0.2 MG Tablet, Take 1 Tab by mouth nightly. Limit intake of liquids after the evening meal., Disp: 90 Tab, Rfl: 3 ??? dilTIAZem (CARDIZEM) 30 MG Tablet, TK 1 T PO TID, Disp: , Rfl: 0 ??? diphenhydrAMINE (BENADRYL) 25 MG Tablet, Take 25 mg by mouth every 6 hours as needed for Itching or Sleep., Disp: , Rfl: ??? DOK 100 MG Capsule, TAKE ONE CAPSULE BY MOUTH TWICE DAILY , Disp: 60 Capsule, Rfl: 2 ??? ergocalciferol (VITAMIN D) [address] UNIT Capsule, TAKE ONE CAPSULE BY MOUTH ONCE WEEKLY , Disp: 4 Capsule, Rfl: 0 ??? escitalopram (LEXAPRO) 10 MG Tablet, TAKE ONE TABLET BY MOUTH DAILY , Disp: 90 Tab, Rfl: 3 ??? fluconazole (DIFLUCAN) 150 MG Tablet, TAKE 1 TABLET BY MOUTH 1 TIME FOR 1 DOSE (Patient not taking: Reported on 02/27/2021), Disp: , Rfl: ??? fluticasone (FLONASE) 50 MCG/ACT Suspension, 1-2 Sprays by Nasal route daily. Use in each nostril as directed. (Patient not taking: Reported on 2020), Disp: 1 Bottle, Rfl: 3 ??? fluticasone (FLONASE) 50 MCG/ACT Suspension, 2 Sprays by Nasal route daily. Use in each nostrilas directed. (Patient not taking: Reported on 2020), Disp: 3 Bottle, Rfl: 3 ??? furosemide (LASIX) 40 MG Tablet, Take 1 Tab by mouth daily., Disp: 90 Tab, Rfl: 3 ??? Glucose Blood Strip, Test blood glucose 4x daily. E11.9, insulin dependent, Disp: 400 Strip, Rfl: 3 ??? guaiFENesin-codeine (Cheratussin AC) 100-10 MG/5ML Syrup, Take 5 mL by mouth every 4 hours as needed for Cough., Disp: 180 mL, Rfl: 0 ??? insulin lispro (HumaLOG) 100 UNIT/ML Solution, 14 UNITS BEFORE EACH MEAL --- ISF OF 1:25 UP TO 80 UNITS PER DAY, Disp: 30 mL, Rfl: 2 ??? Insulin Pen Needle (PEN NEEDLES 31GX5/16 ) 31G X 8 MM Misc, Three times a day, Disp: 300 Each, Rfl: 3 ??? Insulin Syringe-Needle U-100 (TRUEPLUS INSULIN SYRINGE) 31G X 5/16 0.5 ML Misc, USE 4 TIMES DAILY, Disp: 400 Each, Rfl: 3 ??? Lancets Misc, Test four times daily. E11.9, insulin dependent, Disp: 400 Lancet, Rfl: 3 ??? Lantus 100 UNIT/ML Solution, 17 Units by Subcutaneous route every morning., Disp: 10 mL, Rfl: 2 ??? levothyroxine (SYNTHROID) 50 MCG Tablet, TAKE ONE TABLET BY MOUTH EVERY MORNING , Disp: 90 Tablet, Rfl: 3 ??? lisinopril (PRINIVIL, ZESTRIL) 5 MG Tablet, TAKE ONE TABLET BY MOUTH DAILY , Disp: 90 Tab, Rfl:2 ??? nortriptyline (PAMELOR) 10 MG Capsule, Take 1 Cap by mouth nightly., Disp: 90 Cap, Rfl: 3 ??? omeprazole (PriLOSEC) 20 MG CAPSULE DELAYED RELEASE, TAKE ONE CAPSULE BY MOUTH DAILY , Disp: 90Capsule, Rfl: 3 ??? oxybutynin (DITROPAN) 5 MG Tablet, TAKE ONE TABLET BY MOUTH DAILY , Disp: 90 Tab, Rfl: 3 ??? potassium chloride SA (KLORCON M) 20 MEQ Tablet Controlled Release, Take 1 Tab by mouth daily.,Disp: 90 Tab, Rfl: 3 ??? rivaroxaban (Xarelto) 20 MG Tablet, Take 20 mg by mouth daily (with dinner). Take with food. , Disp: , Rfl: Past Medical History Past [...] is normal. No respiratory distress. Breath sounds: Decreased breath sounds present. Abdominal: General: Bowel sounds are normal. Palpations: [...] Thought content normal. Judgment: Judgment normal. Vitals: 05/14/21 1456 BP: 132/70 BP Location: Right Arm BP Position: Sitting BP Cuff Size: Regular Pulse: 87 Resp: 16 Temp: 96.6 ??F (35.9 ??C) TempSrc: Temporal SpO2: 95% Weight: 306 lb 6.4 oz (139 kg) Height: 5' 6 (1.676 m) Assessment and Plan See Diagnoses, Orders, Follow-up, and Instructions 1. Acute bronchitis, unspecified organism - guaiFENesin-codeine (Cheratussin AC) 100-10 MG/5ML Syrup; Take 5 mL by mouth every 4 hours as needed for Cough. Dispense: 180 mL; Refill: 0 Will give Cheratussin for acute bronchitis. Discontinue Tessalon Perles. Finish Augmentin. Follow-up if no improvement. Follow-up in office with PCP in 3 months for regular health check I discussed all new medications and potential side effects or risks associated with them. Patient is to contact our office with any concerns. Patient instructions and educational materials were given to the patient. Patient (or patient solar manufacturer's representative) demonstrates verbal understanding of instructions given. [...] referring physician. Documentation for this visit on 05/14/21 was completed using a template. I have seen and examined the patient. Everything documented was personally performed at this visit with the necessary additions, deletions and changes made as appropriate. documented in this encounter Plan of Treatment Upcoming Encounters Date Type Department Care Team (Late st Contact Info) Description 10/08/2024 2:15 PM ORDNANCE ENGINEERING TECHNICIAN Office Visit [facility] #2 [place] [address] Orlin Urbina APRN, HEALTH AND SAFETY TRAINER #[address] [place] [address] 10/18/2024 2:15 PM ORDNANCE ENGINEERING TECHNICIAN Appointment [facility] Mammography 1 [place] [address] Oswaldo Serrano MD #[address] [address] Discharge Disposition: Discharged to home or Selfcare 11/29/2024 2:30 PM ORDNANCE ENGINEERING TECHNICIAN Office Visit [facility] - Family Medicine - [place] [address] [place] [address] Oswaldo Serrano MD #[address] [address] 11/30/2024 3:00 PM ORDNANCE ENGINEERING TECHNICIAN Office Visit [facility] Medical [facility] - Endocrinology - [place] #[address] [place] [address] Ok Jorge MD #[address] [address] documented as of this encounter Visit Diagnoses Diagnosis Acute bronchitis, unspecified organism- Primary documented in this encounter Additional Health Concerns Assessment Noted Time PHQ-9 Depression Total Score: 2 07/18/20 20 4:26 PM CDT documented as of this encounter Care Teams Cargo Operations Agent Relationship Specialty Start Date End Date Oswaldo Serrano MD #[address] [address] PCP - General Family Medicine 05/19/17 Angel Crowe DPM #[address] [address] Consulting Physician Podiatry 06/16/17 Mora Fritz Behavioral Health Navigator 06/15/18 documented as of this encounter
--- OUTSIDE RECORDS SUMMARY | 2024-10-07 00:26 | XMS_ITS | Encounter Summary ---
Author Organization [facility] Address [address] [facility] [place] [address] Phone Care Team Providers Care Flanging Roll Operator Name Role Phone Oswaldo Serrano MD Primary Care Provider [phone] Angel Crowe DPM Unavailable [phone] Mora Fritz Unavailable Unavailable Reason for Referral * Consult, Test & Initiate Treatment (Less Than 4 Weeks) - Closed Specialty Diagnoses / Procedures Referred By Praful ferro Referred To Contact Diagnoses Morbid obesity (HCC) Oswaldo Serrano MD #[address] [address] Phone: tel: fax: [address] [address] Phone: tel: fax: Referral ID Status Reason Start Date Expiration Date Visits Re quested Visits Authorized [id number] Closed 10/07/2021 1 1 Scheduling Instructions Loretta is being referred to Nutrition services at [facility] or other specialist in patient's insurance network for morbid obesity. See below for Loretta's current medications, allergies and problem list. Please contact patient for scheduling questions or concerns. CURRENT MEDS: Current Outpatient Medications: albuterol 108 (90 Base) MCG/ACT Aerosol Solution, , Disp: , Rfl: albuterol 108 (90 Base) MCG/ACT Aerosol Solution, take 1-2 Puffs by inhalation every 4 hours as needed for Cough., Disp: 1 g, Rfl: 0 amoxicillin-clavulanate (AUGMENTIN) 875-125 MG Tablet, TAKE 1 TABLET BY MOUTH EVERY 12 HOURS, Disp: , Rfl: ASPIR-LOW 81 MG Tablet Delayed Response, , Disp: , Rfl: benzonatate (TESSALON) 100 MG Capsule, Take 1 Capsule by mouth 3 times daily as needed for Cough for up to 10 days., Disp: 30 Capsule, Rfl: 0 Blood Glucose Monitoring Suppl Device, Test blood glucose 4 times daily. E11.9, insulin dependent, Disp: 1 Each, Rfl: 0 Blood Pressure Monitoring (Blood Pressure Cuff) Mis, Dispense battery-powered arm cuff (Dx: I10), Disp: 1 Each, Rfl: 0 Calcium Carbonate-Vitamin D3 (Calcium 600/Vitamin D) 600-400 MG-UNIT Tablet, Use as directed, Disp: 60 Tablet, Rfl: 11 carvedilol (COREG) 25 MG Tablet, 25 mg 2 times daily., Disp: , Rfl: desmopressin (DDAVP) 0.2 MG Tablet, Take 1 Tab by mouth nightly. Limit intake of liquids after the evening meal., Disp: 90 Tab, Rfl: 3 dilTIAZem (CARDIZEM) 30 MG Tablet, TK 1 T PO TID, Disp: , Rfl: 0 diphenhydrAMINE (BENADRYL) 25 MG Tablet, Take 25 mg by mouth every 6 hours as needed for Itching or Sleep., Disp: , Rfl: docusate sodium (DOK) 100 MG Capsule, Take 1 Capsule by mouth 2 times daily., Disp: 60 Capsule, Rfl: 2 ergocalciferol (VITAMIN D) 62112 UNIT Capsule, TAKE ONE CAPSULE BY MOUTH ONCE WEEKLY , Disp: 4 Capsule, Rfl: 0 escitalopram (LEXAPRO) 10 MG Tablet, TAKE ONE TABLET BY MOUTH EVERY DAY, Disp: 90 Tablet, Rfl: 2 fluconazole (DIFLUCAN) 150 MG Tablet, TAKE 1 TABLET BY MOUTH 1 TIME FOR 1 DOSE (Patient not taking: Reported on 02/27/2021), Disp: , Rfl: fluticasone (FLONASE) 50 MCG/ACT Suspension, 1-2 Sprays by Nasal route daily. Use in each nostril as directed. (Patient not taking: Reported on 2020), Disp: 1 Bottle, Rfl: 3 fluticasone (FLONASE) 50 MCG/ACT Suspension, 2 Sprays by Nasal route daily. Use in each nostril as directed. (Patient not taking: Reported on 2020), Disp: 3 Bottle, Rfl: 3 furosemide (LASIX) 40 MG Tablet, Take 1 Tab by mouth daily., Disp: 90 Tab, Rfl: 3 Glucose Blood Strip, Test blood glucose 4x daily. E11.9, insulin dependent, Disp: 400 Strip, Rfl: 3 guaiFENesin-codeine (Cheratussin AC) 100-10 MG/5ML Syrup, Take 5 mL by mouth every 4 hours as needed for Cough., Disp: 180 mL, Rfl: 0 insulin aspart (NovoLOG FlexPen) 100 UNIT/ML Solution Pen-injector, INJECT 18 UNITS AT BREAKFAST, 18 UNITS AT LUNCH AND 16 UNITS AT DINNER -- ISF OF 1:30 IF GREATER THAN 140MG/DL UP TO 100 UNITS PER DAY, Disp: 90 mL, Rfl: 1 insulin degludec (Tresiba FlexTouch) 100 UNIT/ML Solution Pen-injector, 17 Units by Subcutaneous route every morning., Disp: 15 mL, Rfl: 1 Insulin Pen Needle (PEN NEEDLES 31GX5/16 ) 31G X 8 MM Misc, Three times a day, Disp: 300 Each, Rfl: 3 Insulin Syringe-Needle U-100 (TRUEPLUS INSULIN SYRINGE) 31G X 5/16 0.5 ML Misc, USE 4 TIMES DAILY, Disp: 400 Each, Rfl: 3 Lancets Misc, Test four times daily. E11.9, insulin dependent, Disp: 400 Lancet, Rfl: 3 levoFLOXacin (LEVAQUIN) 500 MG Tablet, Take 1 Tablet by mouth daily for 7 days., Disp: 7 Tablet, Rfl: 0 levothyroxine (SYNTHROID) 50 MCG Tablet, TAKE ONE TABLET BY MOUTH EVERY MORNING , Disp: 90 Tablet, Rfl: 3 lisinopril (PRINIVIL, ZESTRIL) 5 MG Tablet, TAKE ONE TABLET BY MOUTH EVERY DAY, Disp: 90 Tablet, Rfl: 2 nortriptyline (PAMELOR) 10 MG Capsule, TAKE ONE CAPSULE BY MOUTH ONE TIME DAILY IN THE EVENING, Disp: 90 Capsule, Rfl: 2 omeprazole (PriLOSEC) 20 MG CAPSULE DELAYED RELEASE, TAKE ONE CAPSULE BY MOUTH DAILY , Disp: 90 Capsule, Rfl: 3 oxybutynin (DITROPAN) 5 MG Tablet, Take 1 Tablet by mouth daily., Disp: 90 Tablet, Rfl: 3 potassium chloride SA (KLORCON M) 20 MEQ Tablet Controlled Release, Take 1 Tab by mouth daily., Disp: 90 Tab, Rfl: 3 predniSONE (DELTASONE) 20 MG Tablet, Take 1 Tablet by mouth 2 times daily., Disp: 10 Tablet, Rfl: 0 rivaroxaban (Xarelto) 20 MG Tablet, Take 20 mg by mouth daily (with dinner). Take with food. , Disp: , Rfl: No current facility-administered medications for this visit. ALLERGIES: -- Sulfa Antibiotics -- Unknown and Hives -- Sulfamethoxazole-Trimethoprim -- Hives PROBLEM LIST: Patient Active Problem List: Chronic congestive heart failure (HCC) Cardiomegaly TBI (traumatic brain injury) ([facility]) History of atrial fibrillation Leg wound, right Hepatitis C virus infection Medically complex patient Depression Protuberant abdomen Elevated hemoglobin A1c Type 2 diabetes mellitus treated with insulin ([facility]) Iron deficiency anemia Hypothyroidism Vitamin D deficiency Hypokalemia Diabetic polyneuropathy associated with type 2 diabetes mellitus (HCC) Type 2 diabetes mellitus with diabetic polyneuropathy, with long-term current use of insulin ([facility]) Dermatophytosis of nail Anemia of infection and chronic disease Iron deficiency Debilitated patient Presence of cardiac defibrillator Elevated LFTs Urinary frequency Class 3 severe obesity due to excess calories with serious comorbidity and body mass index (BMI) of 40.0 to 44.9 in adult ([facility]) Hyperlipidemia Dizziness Diarrhea Chronic joint pain Hypotension Intractable cluster headache syndrome High blood pressure B12 deficiency Elevated creatine kinase F CONTROLLER Reason for Visit * Reason Comments Follow-up 3 month follow up Urinary Frequency Urinary frequency an d low back pain for a couple of days. Encounter Details Date Type Department Care Team (Late st Contact Info) Description 10/07/2021 3:45 PM CHIEF CONTROLLER Office Visit [facility] - Family Medicine [facility] [address] [place] [address] Oswaldo Serrano MD [address] [address] Sinus drainage (Primary Dx); URI, acute; Dysuria; Encounter for screening mammogram for breast cancer; Morbid obesity (HCC) Discharge Disposition: Discharged to home or [...] COVID-19? No / Unsure 10/07/2021 3:45 PM CHIEF CONTROLLER documented as of this encounter Last Filed Vital Signs Vital Sign Reading Time Taken Comments Blood Pressure 126/60 10/07/2021 3:58 PM CHIEF CONTROLLER Pulse 61 10/07/2021 3:58 PM CHIEF CONTROLLER Temperature 35.9 ??C (96.7 ??F) 10/07/2021 3:58 PM CS T Respiratory Rate 16 10/07/2021 3:58 PM CHIEF CONTROLLER Oxygen Saturation 93% 10/07/2021 3:58 PM CHIEF CONTROLLER Inhaled Oxygen Concentration - - Weight 137.1 kg (302 lb 3.2 oz) 10/07/2021 3:58 PM CHIEF CONTROLLER Height 167.6 cm (5' 6 ) 10/07/2021 3:58 PM CHIEF CONTROLLER Body Mass Index 48.78 10/07/2021 3:58 PM CHIEF CONTROLLER documented in this encounter Patient Instructions * Patient Instructions* Oswaldo Serrano MD - 10/07/2021 3:45 PM CHIEF CONTROLLER 1. Get COVID booster in a few weeks. 2. Drink lots of water & cranberry juice. 3. Do COVID test today! 4. Do urine test today! 5. Take Levaquin antibiotic for 7 days. 6. Get mammogram done. 7. See director learning services. F CONTROLLER F CONTROLLER F CONTROLLER F CONTROLLER F CONTROLLER F CONTROLLER F CONTROLLER F CONTROLLER documented in this encounter Progress Notes * Tanisha Panda - 10/07/2021 3:45 PM CST Loretta Calderon Isamar, 60 y.o., female is here for Follow-up (3 month follow up) and Urinary Frequency (Urinary frequency and low back pain for a couple of days.) Medication Refills: Patient reports/denies need for medication refills. Orders Pended: no Requested Prescriptions No prescriptions requested or ordered in this encounter Home Medications Medication Sig Start Date End Date Taking? Authorizing Provider albuterol 108 (90 Base) MCG/ACT Aerosol Solution 02/14/21 Yes Provider, MD Nica amoxicillin-clavulanate (AUGMENTIN) 875-125 MG Tablet TAKE 1 TABLET BY MOUTH EVERY 12 HOURS 05/07/21ProNica pearl MD ASPIR-LOW 81 MG Tablet Delayed Response 05/24/17 Yes Nica Muniz MD Blood Glucose Monitoring Suppl Device Test blood glucose 4 times daily. E11.9, insulin dependent 12/19/19 Yes Ok Jorge MD Blood Pressure Monitoring (Blood Pressure Cuff) [facility] Dispense battery-powered arm cuff (Dx: I10) 12/19/20 Yes Oswaldo Serrano MD Calcium Carbonate-Vitamin D3 (Calcium 600/Vitamin D) 600-400 MG-UNIT Tablet Use as directed 05/14/21 Yes Connor Yuan APRN, PAYMENT MANAGER carvedilol (COREG) 25 MG Tablet 25 mg 2 times daily. 05/06/17 Yes Nica Muniz MD desmopressin (DDAVP) 0.2 MG [...] or Sleep. 05/24/17 Yes Nica Muniz MD docusate sodium (DOK) 100 MG Capsule Take 1 Capsule by mouth 2 times daily. 07/29/21 Yes Oswaldo Serrano MD ergocalciferol (VITAMIN D) 62053 UNIT Capsule TAKE ONE CAPSULE BY MOUTH ONCE WEEKLY 05/13/21 Yes Oswaldo Serrano MD escitalopram (LEXAPRO) 10 MG Tablet TAKE ONE TABLET BY MOUTH EVERY DAY 09/12/21 Yes Yves Serrano MD fluconazole (DIFLUCAN) 150 MG Tablet [...] taking: Reported on 2020 04/07/20 Connor Yuan APRN, CNP furosemide (LASIX) 40 MG Tablet Take 1 Tab by mouth daily. 11/12/20 Yes Connor Yuan APRN, CNP Glucose Blood Strip Test blood glucose 4x daily. E11.9, insulin dependent 03/12/21 Yes Ok Jorge MD guaiFENesin-codeine (Cheratussin AC) 100-10 MG/5ML Syrup Take 5 mL by mouth every 4 hours as neededfor Cough. 05/14/21 Yes Connor Yuan APRN, CNP insulin aspart (NovoLOG FlexPen) 100 UNIT/ML Solution Pen-injector INJECT 18 UNITS AT BREAKFAST, 18UNITS AT LUNCH AND 16 UNITS AT DINNER -- ISF OF 1:30 IF GREATER THAN 140MG/DL UP TO 100 UNITS PER DAY 09/30/21 Yes Ok Jorge MD insulin degludec (Tresiba FlexTouch) 100 UNIT/ML Solution Pen-injector 17 Units by Subcutaneous route every morning. 09/30/21 Yes Ok Jorge MD Insulin Pen Needle [...] ONE TABLET BY MOUTH EVERY DAY 08/06/21 Yes Oswaldo Serrano MD nortriptyline (PAMELOR) 10 MG Capsule TAKE ONE CAPSULE BY MOUTH ONE TIME DAILY IN THE EVENING 09/12/21 Yes Oswaldo Serrano MD omeprazole (PriLOSEC) 20 MG CAPSULE DELAYED RELEASE TAKE ONE CAPSULE BY MOUTH DAILY 01/22/21 Yes Oswaldo Serrano MD oxybutynin (DITROPAN) 5 MG Tablet Take 1 Tablet by mouth daily. 10/06/21 Yes Edwar Romo MD potassium chloride SA (KLORCON M) 20 MEQ Tablet Controlled Release Take 1 Tab by mouth daily. 11/12/20 Yes Connor Yuan APRN, CNP predniSONE (DELTASONE) 20 MG Tablet Take 1 Tablet by mouth 2 times daily. 07/28/21 Yes Oswaldo Serrano MD rivaroxaban (Xarelto) 20 [...] ??? Pap Smear 06/06/2020 ??? Mammogram 10/17/2020 ??? Influenza Immunization (1) 06/10/2021 ??? SARS-COV-2 Immunization (3 - Booster for Pfizer series) 07/20/2021 Orders Pended: no The following BPA's have been addressed with the patient today: BMI, Flu, Pneumonia, Colonoscopy, Mammogram and Pap F CONTROLLER * Oswaldo Serrano MD - 10/07/2021 3:45 PM CST CHIEF COMPLAINT: URI. SUBJECTIVE: Patient is here today complaining of cough with white sputum production for the last week. She also would like a refill on the inhaler. She denies any fever, dizziness, myalgias, loss of taste or smell, diarrhea or nausea. She has had two COVID vaccines already. She is overdue for mammogram. She would like to see a director learning services for morbid obesity. BMI is 48.78 weight 302. She is also complaining of dysuria and lower back pain. I have reviewed all the systems. They are negative except as mentioned in HPI. OBJECTIVE: Vital Signs: Blood pressure 126/60, pulse 61, temperature 96.7, respirations 16, weight 302. General: Patient is talkative, cooperative and appropriately dressed. Chest: Clear to auscultation bilaterally, no wheezing. Heart: S1, S2. No murmurs. Neck: No carotid bruits auscultated. ASSESSMENT AND PLAN: 1. URI. I gave her Levaquin. Get COVID test on her. Albuterol inhaler and Tessalon Perles. 2. Dysuria. Will get a UA with culture. I told her to drink lots of water and cranberry juice. Hopefully, the Levaquin should help with this, as well. 3. Screening for breast cancer. Will set her up for a mammogram. 4. Morbid obesity. I will refer to the dietitian at [facility]. 5. This patient is to follow up in three months. IJN: [id number] F CONTROLLER F CONTROLLER * Mat Joyce MA - 10/07/2021 3:45 PM CST Provider ordered wrong Covid Test. POCT Covid done on patient with results of a negative test F CONTROLLER documented in this encounter Miscellaneous Notes * Addendum Note - Mat Joyce MA - 10/07/2021 3:45 PM CSTAddended by: MAT JOYCE on: 10/07/2021 04:59 PM Modules accepted: Orders F CONTROLLER * Addendum Note - Mat Joyce MA - 10/07/2021 3:45 PM CSTAddended by: MAT JOYCE on: 10/07/2021 05:01 PM Modules accepted: Orders F CONTROLLER documented in this encounter Plan of Treatment Upcoming Encounters Date Type Department Care Team (Late st Contact Info) Description 10/08/2024 2:15 PM CHIEF CONTROLLER Office Visit [facility] #2 [place] [phone] Orlin Urbina APRN, PAYMENT MANAGER #[address] [place] [address] 10/18/2024 2:15 PM CHIEF CONTROLLER Appointment [facility] Mammography [address] [place] [id number] Oswaldo Serrano MD #[address] [address] Discharge Disposition: Discharged to home or Selfcare 11/29/2024 2:30 PM CHIEF CONTROLLER [facility] #2 [place] [phone] Oswaldo Serrano MD #[address] [address] 11/30/2024 3:00 PM CHIEF CONTROLLER Office [facility] #2 [facility] [place] [phone] Ok Jorge MD #[address] [place] [address] Scheduled Referrals Name Type Priority Associated Diagnoses Order Schedule EXTERNAL CLINICAL NUTRITION REFERRAL Outpatient Referral Less Than 4 weeks Morbid obesity (HCC) Expected: 10/06/2022 (Approximate), Expires: 01/05/2023 documented as of this encounter Results * CULTURE, URINE (10/20/2021 4:41 PM CHIEF CONTROLLER) Pathologist [facility] CULTURE RESULTS MIXED GROWTH OF ONE OR MORE DISTAL URETHRAL CONTAMINANTS 10/22/2021 11:04 AM CHIEF CONTROLLER [facility] Culture URINE SPECIMEN COLLECTION, CLEAN CATCH / Unknown Non-Phlebotomy Collection / Unknown 10/20/2021 4:41 PM CHIEF CONTROLLER 10/20/2021 4:47 PM CHIEF CONTROLLER us Oswaldo Serrano MD [facility] Final Result Performing Organization Address City/State/[facility] Co de Phone Number [facility] [address] [place] [address], * (ABNORMAL) URINALYSIS REFLEX IF INDICATED BY ABNORMAL RESULTS (10/20/2021 4:41 PM CHIEF CONTROLLER) [facility] SPECIFIC GRAVITY 1.020 1.003 - 1.030 10/20/2021 5:10 PM CHIEF CONTROLLER [facility] URINE PH 6.0 5.0 - 9.0 10/20/2021 5:10 PM CHIEF CONTROLLER [facility] WBC ESTERASE Negative Negative 10/20/2021 5:10 PM CHIEF CONTROLLER [facility] NITRITE Negative Negative 10/20/2021 5:10 PM CHIEF CONTROLLER [facility] PROTEIN, RANDOM URINE 15 mg/dL(A) Negative 10/20/2021 5:10 PM CHIEF CONTROLLER [facility] URINE GLUCOSE, QUAL 1000 mg/dL(A) Negative 10/20/2021 5:10 PM CHIEF CONTROLLER [facility] URINE KETONES Negative Negative 10/20/2021 5:10 PM CHIEF CONTROLLER [facility] UROBILINOGEN Normal Normal mg/dL 10/20/2021 5:10 PM CHIEF CONTROLLER [facility] URINE BLOOD 50 /uL(A) Negative jolene/ul 10/20/2021 5:10 PM CHIEF CONTROLLER [facility] URINALYSIS COLOR Yellow 10/20/19 5:10 PM CHIEF CONTROLLER [facility] URINALYSIS CLARITY Slightly Cloudy 10/20/2021 5:10 PM CHIEF CONTROLLER [facility] WBC (Urine) 0-5 Negative, 0-5 /hpf 10/20/2021 5:10 PM CHIEF CONTROLLER [facility] URINE RBC'S 6-10(A) Negative, 0-2 /hpf 10/20/2021 5:10 PM CHIEF CONTROLLER [facility] EPITHELIAL CELLS Small amount /lpf 2021 5:10 PM CHIEF CONTROLLER [facility] BACTERIA, URINE Moderate(A) Negative /hpf 10/20/2021 5:10 PM CHIEF CONTROLLER [facility] Urine URINE SPECIMEN COLLECTION, CLEAN CATCH / Unknown Non-Phlebotomy Collection / Unknown 10/20/2021 4:41 PM CHIEF CONTROLLER 10/20/2021 4:47 PM CHIEF CONTROLLER Oswaldo Serrano MD URINE ORDERABLES Final Resu lt [facility] #[address] [place] [address] documented in this encounter Visit Diagnoses Diagnosis Sinus drainage- Primary Other diseases of nasal cavity and sinuses URI, acute Acute upper respiratory infections of unspecified site Dysuria Encounter for screening mammogram for breast cancer Morbid obesity (HCC) Morbid obesity documented in this encounter Additional Health Concerns Assessment Noted Time PHQ-9 Depression Total Score: 2 07/18/20 20 4:26 PM CDT documented as of this encounter Care Teams Flanging Roll Operator Relationship Specialty Start Date End Date Oswaldo Serrano MD #[address] [address] PCP - General Family Medicine 05/19/17 Angel Crowe DPM [address] [address] Consulting Physician Podiatry 06/16/17 Mora Fritz Behavioral Health Navigator 06/15/18 documented as of this encounter
--- OUTSIDE RECORDS SUMMARY | 2024-10-07 00:26 | XMS_ITS | Encounter Summary ---
Author Organization [employer] Care Team Providers Care Inspector Experimental Assembly Name Role Phone Oswaldo Serrano MD Primary Care Provider [phone] Angel Crowe DPM Unavailable [phone] Mora Fritz Unavailable Unavailable Encounter Details Date Type Department Care Team (Latest Contact Info) Description 03/10/2021 Travel Social History Tobacco Use Types Packs/Day [...] st Contact Info) Description 10/08/2024 2:15 PM BOOK BINDER Office Visit [facility] #2 [place] [phone] Orlin Urbina, MACHINE TOOL TECHNICIAN INSTRUCTOR, RN CLINICAL QUALITY #[address] [place] [address] 10/18/2024 2:15 PM BOOK BINDER [facility]ment [facility] 1 [place] [phone] Oswaldo Serrano MD #2 [facility] [address] [place] [address] Discharge Disposition: Discharged to home or Selfcare 11/29/2024 2:30 PM BOOK BINDER [facility] - [place] #[address] [place] [phone] Oswaldo Serrano MD #2 [facility] [address] [place] [address] 11/30/2024 3:00 PM BOOK BINDER Office Visit [facility] - [place] #2 [place] [phone] Ok Jorge MD #2 [facility] [address] [place] [phone] documented as of this encounter Visit Diagnoses Not on filedocumented in this encounter Additional Health Concerns Assessment Noted Time PHQ-9 Depression Total Score: 2 07/18/20 20 4:26 PM CDT documented as of this encounter Care Teams Inspector Experimental Assembly Relationship Specialty Start Date End Date Oswaldo Serrano MD #[address] [address] PCP - General Family Medicine 05/19/17 Angel Crowe DPM #[address] [address] Consulting Physician Podiatry 06/16/17 Mora Fritz Behavioral Health Navigator 06/15/18 documented as of this encounter
--- OUTSIDE RECORDS SUMMARY | 2024-10-07 00:26 | XMS_ITS | Encounter Summary ---
Author Organization [facility] Address [address] [place] [address] Phone Care Team Providers Care Philosophy Instructor Name Role Phone Oswaldo Serrano MD Primary Care Provider [phone] Angel Crowe DPM Unavailable [phone] Mora Fritz Unavailable Unavailable Reason for Visit * Reason Onset Date Comments Advice Only 05/25/2021 cough diagnosed with bronchitis Encounter Details Date Type Department Care Team (Late st Contact Info) Description 05/25/2021 Telephone [facility] [address] [place] [address] Oswaldo Serrano MD #[address] [address] Advice Only (cough diagnosed with bronchitis) Social History Tobacco Use Types Packs/Day Years [...] Telephone Encounter - Oswaldo Serrano MD - 06/05/2021 9:46 PM CDT Spoke with family member and told her to go to the ER. She voiced understanding. Thanks! * Telephone Encounter - Gayle Mccarthy RN - 06/05/2021 4:06 PM CDT Dilia, calling PRD on file. She feels like her sister sounds congested at this point. Cough is ongoing still She states she has had pneumonia in past and is worried about this. Do you advise appointment for further evaluation? Dilia is asking if a chest x-ray might be warranted at this point. Please advise, thank you. * Telephone Encounter - Mana Pandey RN - 05/25/2021 4:34 PM CDT Dilia called to see if normal to have a cough after treatment with bronchitis Instructed patient that a cough can linger as long as not in any distress Dilia is agreeable to recommendation and verbalizes understanding. documented in this encounter Plan of Treatment Upcoming Encounters Date Type Department Care Team (Late st Contact Info) Description 10/08/2024 2:15 PM CUSTOMS AGENT Office Visit [facility] #2 [place] [phone] Orlin Urbina APRN, ROPE LAYING MACHINE OPERATOR #[address] [place] [address] 10/18/2024 2:15 PM CUSTOMS AGENT Appointment [facility]amm[facility] [address] [place] [phone] Oswaldo Serrano MD #[address] [address] Discharge Disposition: Discharged to home or Selfcare 11/29/2024 2:30 PM CUSTOMS AGENT [facility] - [place] #2 [place] [address] Oswaldo Serrano MD #[address] [address] 11/30/2024 3:00 PM CUSTOMS AGENT Office Visit [facility] - [place] #2 [place] [phone] Ok Jorge MD #[address] [place] [address] documented as of this encounter Visit Diagnoses Not on filedocumented in this encounter Additional Health Concerns Assessment Noted Time PHQ-9 Depression Total Score: 2 07/18/20 20 4:26 PM CDT documented as of this encounter Care Teams Philosophy Instructor Relationship Specialty Start Date End Date Oswaldo Serrano MD #[address] [address] PCP - General Family Medicine 05/19/17 Angel Crowe DPM #[address] [address] Consulting Physician Podiatry 06/16/17 Mora Fritz [place] Behavioral Health Navigator 06/15/18 documented as of this encounter
--- OUTSIDE RECORDS SUMMARY | 2024-10-07 00:26 | XMS_ITS | Encounter Summary ---
Author Organization [facility] Address [address] [place] [address] Phone Care Team Providers Care Nurse Informaticist Name Role Phone Oswaldo Serrano MD Primary Care Provider [phone] Angel Crowe DPM Unavailable Mora Fritz Unavailable Unavailable Ok Jorge MD Unavailable Reason for Visit * Reason Onset Date Comments Medication Refill 06/16/2021 Medication Refill 06/25/2021 Encounter Details Date Type Department Care Team (Late st Contact Info) Description 06/16/2021 Refill [facility] [place] [address] [place] [address] Oswaldo Serrano MD [address] [address] Medication Refill; Medication Refill Social History Tobacco Use Types [...] Telephone Encounter - Mica Morales RN - 06/25/2021 11:23 AM CDT Called pharmacy notifying them patient needs lab work for refill. Vitamin D order pended. * Telephone Encounter - María Perdomo MA - 06/25/2021 10:29 AM CDT [facility] left voice message on medication refill line : Pharmacy checking on status of refill and requested a return call in regards to the Ergocalciferol (vitamin d) 50,000 unit caps. @[phone] * Telephone Encounter - Mica Morales RN - 06/18/2021 8:48 AM CDT Ref Range & Units 3 mo ago VITAMIN D, 25 HYDROX >=30 ng/mL 33 Resulting Agency [facility] Last result from February Medication failed the protocol, provider to review and approve the medication order if appropriate. Requested Prescriptions Pending Prescriptions Disp Refills ergocalciferol (VITAMIN D) 41550 UNIT Capsule 4 Capsule 2 Sig: Take 1 Capsule by mouth once a week. Vitamin Supplements (Adult) Protocol Failed - 06/16/2021 2:46 PM Failed - Vitamin D less than 1.25mg Passed - Visit with relevant provider in past 12 months or upcoming 90 days Recent Visits Date Type Provider Dept 05/14/21 Office Visit Connor Yuan APN, [facility] 02/27/21 Office Visit Oswaldo Serrano MD [facility] 02/16/21 Office Visit Oswaldo Serrano MD [facility] 01/14/21 Office Visit Connor Yuan APN, [facility] 12/19/20 Office Visit Oswaldo Serrano MD [facility] 12/18/20 Telemedicine Oswaldo Serrano MD [facility] 12/08/20 Telemedicine Oswaldo Serrano MD [facility] 11/07/20 Telemedicine Connor Yuan APN, [facility] 10/09/20 Office Visit Oswaldo Serrano MD [facility] 09/16/20 Telemedicine Oswaldo Serrano MD [facility] Showing recent visits within past 365 days and meeting all other requirements Future Appointments Date Type Provider Dept 08/17/21 Appointment Oswaldo Serrano MD [facility] Showing future appointments within next 90 days and meeting all other requirements [facility] Off-Protocol Failed - 06/16/2021 2:46 PM Failed - Medication not assigned to a protocol, review manually. Passed - Valid encounter within last 12 months Past Office Visits Recent Outpatient Visits 1 month ago [facility], [facility] Connor Hutchinson APN, FREE LANCE ARTIST 3 months ago [facility]aldo Moreno [facility] 4 months ago B12 [facility] Oswaldo Moreno [facility] 5 months ago UTI symptoms [facility] Connor Hutchinson APN, FREE LANCE ARTIST 6 months ago Essential [facility] Oswaldo Moreno [facility] Upcoming Appointments Future Appointments In 1 week Ok Jorge MD [facility] In 2 months Oswaldo Serrano MD 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 Visits Recent Visits Date Type Provider Dept 05/14/21 Office Visit Connor Yuan APN, FREE LANCE ARTIST [facility] [place] 02/27/21 Office Visit Oswaldo Serrano MD [facility] 02/16/21 Office Visit Oswaldo Serrano MD [facility] 01/14/21 Office Visit Connor Yuan APN, FREE LANCE ARTIST [facility] [place] 12/19/20 Office Visit Oswaldo Serrano MD [facility] 12/18/20 Telemedicine Oswaldo Serrano MD [facility] 12/08/20 Telemedicine Oswaldo eSrrano MD [facility] 11/07/20 Telemedicine Connor Yuan APN, FREE LANCE ARTIST [facility] [place] 10/09/20 Office Visit Oswaldo Serrano MD [facility] 09/16/20 Telemedicine Oswaldo Serrano MD [facility] Showing recent visits within past 460 days with a meds authorizing provider and meeting all other requirements Future Appointments Date Type Provider Dept 08/17/21 Appointment Oswaldo Serrano MD [facility] Showing future appointments within next 90 days with a meds authorizing provider and meeting all other requirements * Telephone Encounter - Darrin Richard - 06/16/2021 2:45 PM CDT Received a faxed Rx request from pharmacy. Reordered refill medication(s) requested and pended for nurse and physician/JUAN review. Refill encounter routed to nurse Johnnyrilavern's pool for processing. documented in this encounter Plan of Treatment Upcoming Encounters Date Type Department Care Team (Late st Contact Info) Description 10/08/2024 2:15 PM CALL CENTER CONSULTANT Office Visit [facility] [address] [place] [address] Orlin Urbina METER TESTER, FREE LANCE ARTIST [address] [place] [address] 10/18/2024 2:15 PM CALL CENTER CONSULTANT [facility] [address] [place] [address] Oswaldo Serrano MD [address] [facility] [address] [place] [address] Discharge Disposition: Discharged to home or Selfcare 11/29/2024 2:30 PM CALL CENTER CONSULTANT Office [facility] - [place] [address] [place] [address] Oswaldo Serrano MD [address] [facility] [address] [place] [address] 11/30/2024 3:00 PM CALL CENTER CONSULTANT Office Visit [facility] - [place] [address] [place] [address] Ok Jorge MD [address] [facility] [address] [place] [address] documented as of this encounter Visit Diagnoses Diagnosis Vitamin D deficiency Unspecified vitamin D deficiency documented in this encounter Additional Health Concerns Infection Onset Date Last Indicated Resolved Time COVID - 19 07/28/2021 07/29/2021 08/17/2021 12:1 6 AM CALL CENTER CONSULTANT Assessment Noted Time PHQ-9 Depression Total Score: 2 07/18/20 4:26 PM CDT documented as of this encounter Care Teams Nurse Informaticist Relationship Specialty Start Date End Date Oswaldo Serrano MD [address] [facility] [address] [place] [address] PCP - General Family Medicine 05/19/17 Angel Crowe DPM [address] [facility] [address] [place] [address] Consulting Physician Podiatry 06/16/17 Mora Fritz GA Behavioral Health Navigator 06/15/18 Ok Jorge MD [address] [facility] [address] [place] [address] Consulting Physician Endocrinology 05/12/22 documented as of this encounter
--- OUTSIDE RECORDS SUMMARY | 2024-10-07 00:26 | XMS_ITS | Encounter Summary ---
Author Organization [facility] Address [address] [place] [address] Phone Care Team Providers Care [employer] Name Role Phone Oswaldo Serrano MD Primary Care Provider Angel Crowe DPM Unavailable Mora Fritz Unavailable Unavailable Reason for Visit * Reason Comments Neck Pain Encounter Details Date Type Department Care Team (Late st Contact Info) Description 07/02/2021 6:35 PM CDT - 07/02/2021 10:13 PM CDT Emergency [facility] Emergency [address] [place] [address] Jhon Meredith MD [address] [place] [address] Neck pain Discharge Disposition: Discharged to home or Selfcare [...] Sign Reading Time Taken Comments Blood Pressure 108/71 07/02/2021 10:12 PM CDT Pulse 80 07/02/2021 10:12 PM CDT Temperature 37 ??C (98.6 ??F) 07/02/2021 6:23 PM CDT Respiratory Rate 18 07/02/2021 10:12 PM CDT Oxygen Saturation 95% 07/02/2021 10:12 PM CDT Inhaled Oxygen Concentration - - Weight 137 kg (302 lb) 07/02/2021 6:23 PM CDT Height 167.6 cm (5' 6 ) 07/02/2021 6:23 PM CDT Body Mass Index 48.74 07/02/2021 6:23 PM CDT documented in this encounter Discharge Instructions * Attachments The following attachments cannot be sent through Care Everywhere. * Neck Problems: Relieving Your Symptoms (Romanian) documented in this encounter Medications at Time of Discharge [...] 25 mg 2 times daily. 05/06/2017 4 cyclobenzaprine (FLEXERIL) 10 MG Tablet Take 1 Tablet by mouth nightly for 15 days. 15 Tablet 07/02/2021 1 desmopressin (DDAVP) 0.2 MG TabletIndications :Nocturnal enuresis Take 1 Tab by mouth nightly. Limit intake of liquids after the evening meal. 90 Tab 3 10/29/2020 2 diphenhydrAMINE (BENADRYL) 25 MG TabletIndications :Insomnia,itching Take 25 mg by mouth every 6 hours as needed for Itching or Sleep. 05/24/2017 2 DOK 100 MG Capsule TAKE ONE CAPSULE BY MOUTH TWICE DAILY 60 Capsule 2 04/15/2021 1 ergocalciferol (VITAMIN D) 36487 UNIT CapsuleIndication s:Vitamin D deficiency TAKE ONE [...] for Cough. 180 mL 05/14/2021 2 insulin degludec (Tresiba FlexTouch) 100 UNIT/ML [...] food. 4 documented as of this encounter ED Notes * Irma Hardy RN - 07/02/2021 10:08 PM CDT Patient discharged. Discharge instructions and patient educational material reviewed with patient; questions and concerns addressed; patient verbalizes understanding, using teach back. Patient was given one prescriptions. Patient was informed no drinking alcohol, driving or operating heavy machinery while taking narcotics or muscle relaxants. Patient discharged per ambulatory mode with sister as responsible alliance party. SL D/C'ed with Satnam cath intact. * Irma Hardy RN - 07/02/2021 8:21 PM CDT Pt medicated per provider orders. Pt educated on intended effects and side effects of medication and verbalized understanding, able to provide teach back of education. * Jhon Meredith MD - 07/02/2021 7:42 PM CDT Chief Complaint Patient presents with ??? Neck Pain Patient is a 60-year-old female brought to emergency room by her sister with chief complaint of generalized pain and achiness. When he the patient is a fair historian and is supplemented by history from the sister. Apparently she has had achiness and pain in her neck for the past with 2-3 weeks. She complains of discomfort when she looks left and right or up and down. She denies any recent injury. She has not had any fever or chills. She does complain of some pain and burning when she urinates.She denies any nausea vomiting or diarrhea. No current facility-administered medications for this encounter. Current Outpatient Medications Medication Sig Dispense Refill ??? albuterol 108 (90 Base) MCG/ACT Aerosol Solution ??? amoxicillin-clavulanate (AUGMENTIN) 875-125 MG Tablet TAKE 1 TABLET BY MOUTH EVERY 12 HOURS ??? ASPIR-LOW 81 MG Tablet Delayed Response (Patient not taking: Reported on 02/16/2021) ??? Blood Glucose Monitoring Suppl Device Test blood glucose 4 times daily. E11.9, insulin dependent 1 Each 0 ??? Blood Pressure Monitoring (Blood Pressure Cuff) [facility] Dispense battery- powered arm cuff (Dx: I10) 1 Each 0 ??? Calcium Carbonate-Vitamin D3 (Calcium 600/Vitamin D) 600-400 MG-UNIT Tablet Use as directed 60 Tablet 11 ??? carvedilol (COREG) 25 MG Tablet 25 mg 2 times daily. ??? cyclobenzaprine (FLEXERIL) 10 MG Tablet Take 1 Tablet by mouth nightly for 15 days. 15 Tablet 0 ??? desmopressin (DDAVP) 0.2 MG Tablet Take 1 Tab by mouth nightly. Limit intake of liquids after the evening meal. 90 Tab 3 ??? dilTIAZem (CARDIZEM) 30 MG Tablet TK 1 T PO TID 0 ??? diphenhydrAMINE (BENADRYL) 25 MG Tablet Take 25 mg by mouth every 6 hours as needed for Itchingor Sleep. ??? DOK 100 MG Capsule TAKE ONE CAPSULE BY MOUTH TWICE DAILY 60 Capsule 2 ??? ergocalciferol (VITAMIN D) 27915 UNIT Capsule TAKE ONE CAPSULE BY MOUTH ONCE WEEKLY 4 Capsule 0 ??? escitalopram (LEXAPRO) 10 MG Tablet TAKE ONE TABLET BY MOUTH DAILY 90 Tab 3 ??? fluconazole (DIFLUCAN) 150 MG Tablet TAKE 1 TABLET BY MOUTH 1 TIME FOR 1 DOSE (Patient not taking: Reported on 02/27/2021) ??? fluticasone (FLONASE) 50 MCG/ACT Suspension 1-2 Sprays by Nasal route daily. Use in each nostril as directed. (Patient not taking: Reported on 2020) 1 Bottle 3 ??? fluticasone (FLONASE) 50 MCG/ACT Suspension 2 Sprays by Nasal route daily. Use in each nostril as directed. (Patient not taking: Reported on 2020) 3 Bottle 3 ??? furosemide (LASIX) 40 MG Tablet Take 1 Tab by mouth daily. 90 Tab 3 ??? Glucose Blood Strip Test blood glucose 4x daily. E11.9, insulin dependent 400 Strip 3 ??? guaiFENesin-codeine (Cheratussin AC) 100-10 MG/5ML Syrup Take 5 mL by mouth every 4 hours as needed for Cough. 180 mL 0 ??? insulin lispro (HumaLOG) 100 UNIT/ML Solution 14 UNITS BEFORE EACH MEAL --- ISF OF 1:25 UP TO 80 UNITS PER DAY 30 mL 2 ??? Insulin Pen Needle (PEN NEEDLES 31GX5/16 ) 31G X 8 MM Misc Three times a day 300 Each 3 ??? Insulin Syringe-Needle U-100 (TRUEPLUS INSULIN SYRINGE) 31G X 5/16 0.5 ML Misc USE 4 TIMES DAILY 400 Each 3 ??? Lancets Misc Test four times daily. E11.9, insulin dependent 400 Lancet 3 ??? Lantus 100 UNIT/ML Solution 17 Units by Subcutaneous route every morning. 10 mL 2 ??? levothyroxine (SYNTHROID) 50 MCG Tablet TAKE ONE TABLET BY MOUTH EVERY MORNING 90 Tablet 3 ??? lisinopril (PRINIVIL, ZESTRIL) 5 MG Tablet TAKE ONE TABLET BY MOUTH DAILY 90 Tab 2 ??? nortriptyline (PAMELOR) 10 MG Capsule Take 1 Cap by mouth nightly. 90 Cap 3 ??? omeprazole (PriLOSEC) 20 MG CAPSULE DELAYED RELEASE TAKE ONE CAPSULE BY MOUTH DAILY 90 Capsule 3 ??? oxybutynin (DITROPAN) 5 MG Tablet TAKE ONE TABLET BY MOUTH DAILY 90 Tab 3 ??? potassium chloride SA (KLORCON M) 20 MEQ Tablet Controlled Release Take 1 Tab by mouth daily. 90 Tab 3 ??? rivaroxaban (Xarelto) 20 MG Tablet Take 20 mg by mouth daily (with dinner). Take with food. Allergies Allergen Reactions ??? Sulfa Antibiotics Unknown and Hives ??? Sulfamethoxazole-Trimethoprim Hives Past Medical History Positives Diagnosis Date ??? Atrial fibrillation and flutter (HCC) ??? CHF, chronic (HCC) ??? Diabetes mellitus (HCC) ??? Hepatitis C ??? Hypertension ??? Pacemaker Past Surgical History: Procedure Laterality Date ??? APPENDECTOMY ??? APPENDECTOMY ??? HC DEFIB CARD RESYNCHRONIZATION 1/DF4 IS4 EA/1 ??? TOOTH EXTRACTION All of her teeth ??? WISDOM TOOTH EXTRACTION Social History Socioeconomic History ??? Marital status: Spouse name: Not on file ??? Number of children: Not on file ??? Years of education: Not on file ??? Highest education level: 10th grade Occupational History ??? Not on file Tobacco Use ??? Smoking status: Never Smoker ??? Smokeless tobacco: Never Used Vaping Use ??? Vaping Use: Never used Substance and Sexual Activity ??? Alcohol use: No ??? Drug use: No ??? Sexual activity: Not Currently Partners: Male Other Topics Concern ??? Not on file Social History Narrative ??? Not on file Social Determinants of Health Social determinant risk not applicable to this patient. BP 100/67 Pulse 79 Temp 98.6 ??F (37 ??C) (Tympanic) Resp 18 Ht 5' 6 (1.676 m) Wt 302 lb(137 kg) LMP (LMP Unknown) SpO2 93% BMI 48.74 kg/m?? Review of Systems Constitutional: Negative for activity change, appetite change, chills and fever. HENT: Negative for congestion, ear pain, rhinorrhea, sore throat and trouble swallowing. Eyes: Negative for pain and visual disturbance. Respiratory: Negative for cough, shortness of breath and wheezing. Cardiovascular: Negative for chest pain and leg swelling. Gastrointestinal: Positive for abdominal pain. Negative for diarrhea, nausea and vomiting. Genitourinary: Positive for dysuria. Negative for difficulty urinating, frequency and hematuria. Musculoskeletal: Positive for neck pain and neck stiffness. Negative for arthralgias and back pain. Skin: Negative for pallor and rash. Neurological: Negative for headaches. Hematological: Negative for adenopathy. Psychiatric/Behavioral: Negative for confusion. All other systems reviewed and are negative. Physical Exam Vitals and nursing note reviewed. Constitutional: General: She is not in acute distress. Appearance: She is well-developed. She is not diaphoretic. HENT: Head: Normocephalic and atraumatic. Right Ear: External ear normal. Left Ear: External ear normal. Eyes: Conjunctiva/sclera: Conjunctivae normal. Pupils: Pupils are equal, round, and reactive to light. Neck: Trachea: No tracheal deviation. Comments: Diffuse tenderness over the neck musculature. Cardiovascular: Rate and Rhythm: Normal rate and regular rhythm. Heart sounds: Normal heart sounds. No murmur heard. Pulmonary: Effort: Pulmonary effort is normal. No respiratory distress. Breath sounds: Normal breath sounds. No wheezing or rales. Abdominal: General: Bowel sounds are normal. There is no distension. Palpations: Abdomen is soft. Tenderness: There is no abdominal tenderness. There is no guarding or rebound. Musculoskeletal: Cervical back: No signs of trauma or torticollis. Pain with movement and muscular tenderness present. Decreased range of motion. Lymphadenopathy: Cervical: No cervical adenopathy. Skin: General: Skin is warm and dry. Neurological: Mental Status: She is alert and oriented to person, place, and time. Cranial Nerves: No cranial nerve deficit. Procedures Imaging Results CT CERVICAL SPINE WO/ CONTRAST (Final result) Result time 07/02/21 20:55:42 Final result by Tim James MD (07/02/21 20:55:42) Impression: IMPRESSION: Mild to moderate multilevel spondylosis of the cervical spine. No acute appearing findings. Narrative: EXAM DESCRIPTION: CT CERVICAL SPINE WO/ CONTRAST REASON FOR STUDY: Neck pain, initial exam, posterior neck pain and head pain for 2 weeks TECHNIQUE: Axial images through the cervical spine with sagittal and coronal reformatted images. Automated exposure control was used as a dose optimization technique for this examination. COMPARISON: None FINDINGS: ALIGNMENT: There is some curvature of spine convex to the left. VERTEBRAE: No fracture. Vertebral body heights well-maintained. DISCS: Multilevel degenerative disc space narrowing. HARDWARE: None in the spine. INDIVIDUAL DISC LEVELS: Moderate disc bulges at C3-C4, C4-C5, and C5-C6. Mild multilevel facet arthropathy and uncovertebral hypertrophy. UPPER THORACIC: Incompletely imaged. No significant osseous spinal stenosis or osseous neural foraminal stenosis. SKULL BASE: No significant finding. LUNG APICES: No significant abnormality. NECK SOFT TISSUES: No significant abnormality. OTHER: No other significant findings. THIS IS AN ELECTRONICALLY VERIFIED FINAL REPORT 07/02/2021 8:52 PM - Electronically signed by Tim James M.D. RW: MARY Report ID: [id number] Reading Location: [id number] CT ABDOMEN PELVIS W/O CONTRAST (Final result) Result time 07/02/21 21:03:12 Final result by Tim James MD (07/02/21 21:03:12) Impression: IMPRESSION: 1. Small hiatal hernia. 2. No evidence of hydronephrosis or urolithiasis. 3. There is some air within the urinary bladder. Urinary bladder is partially decompressed with some mild wall thickening. This is likely evidence for cystitis. Narrative: EXAM DESCRIPTION: CT ABDOMEN PELVIS W/O CONTRAST REASON FOR STUDY: Hematuria, unknown cause, pain and burning with urination for 2 weeks TECHNIQUE: CT scan of the abdomen and pelvis performed without intravenous and without oral contrast using helical scanning technique. Reconstructed coronal and sagittal MPR images reviewed. All images stored on PACS. Automated exposure control was used as a dose optimization technique for this examination. COMPARISON: 07/16/2017 FINDINGS: The sensitivity for detection of visceral lesions is diminished without the use of intravenous contrast. LOWER CHEST: Atelectasis and scarring left lung base. LIVER: Normal size. No identified cystic or solid masses. GALLBLADDER: Surgically absent. BILE DUCTS: No intrahepatic or extrahepatic ductal dilatation. SPLEEN: Normal size. No focal lesions. PANCREAS: No identified cystic or solid masses. No significant calcifications. No adjacent inflammation or peripancreatic fluid collections. Pancreatic duct not dilated. ADRENALS: Normal. KIDNEYS/URINARY TRACT: No identified significant cystic or solid masses. No stones. No hydronephrosis or hydroureter. There is air within the urinary bladder. There is some mild wall thickening of the urinary bladder. GI: Small hiatal hernia. No dilated bowel loops. No obvious wall thickening. Surgically absent appendix. No significant diverticular disease. PERITONEUM: No ascites or free air. RETROPERITONEUM: No mass or adenopathy. REPRODUCTIVE: Uterus unremarkable. There are no adnexal masses. VASCULATURE: No abdominal aortic aneurysm. MUSCULOSKELETAL: No significant abnormality. OTHER: No other abnormality. THIS IS AN ELECTRONICALLY VERIFIED FINAL REPORT 07/02/2021 9:00 PM - Electronically signed by Tim James M.D. RW: MARY Report ID: [id number] Reading Location: [id number] Number of Diagnoses or Management Options Amount and/or Complexity of Data Reviewed Clinical lab tests: ordered and reviewed Tests in the radiology section of CPT??: ordered and reviewed Risk of Complications, Morbidity, and/or Mortality Presenting problems: moderate Diagnostic procedures: moderate Management options: moderate General comments: Differential diagnosis: Torticollis, neck strain, viral syndrome, UTI Patient Progress Patient progress: stable Reviewed: previous chart, nursing note and vitals Interpretation: labs and CT scan Clinical Impression 1. Neck pain Patient presents emergency room with neck pain along with some generalized achiness. She also had some dysuria. Urinalysis was obtained and is came back clean. CBC and CMP were also unremarkable. CT of the abdomen and pelvis without contrast revealed no acute findings. CT cervical spine revealed mild to moderate multilevel spondylosis of the cervical spine without any acute changes. I reviewed all these findings with the patient her sister will put her on a muscle relaxer to use nighttime. She is follow up with her regular doctor for recheck. * Paris Portillo RN - 07/02/2021 6:26 PM CDT Patient presents to triage with complaint of pain in the back of her neck radiating to her head forthe past 2 weeks. Denies any known injury. Also has had pain and burning with urination. Patient confused to time, but alert to person, place and situation. Sister states patient is at her normal level of consciousness. Respirations non labored. documented in this encounter Plan of Treatment Upcoming Encounters Date Type Department Care Team (Late st Contact Info) Description 10/08/2024 2:15 PM INSTRUMENT ASSEMBLY SUPERVISOR Office Visit [facility] [address] [place] [id number] Orlin Urbina APRN, SUPERVISOR [employer] [address] [place] [address] 10/18/2024 2:15 PM INSTRUMENT ASSEMBLY SUPERVISOR Appointment [facility] [address] [place] [address] Oswaldo Serrano MD #2 [facility] [address] [place] [address] Discharge Disposition: Discharged to home or Selfcare 11/29/2024 2:30 PM INSTRUMENT ASSEMBLY SUPERVISOR Office Visit [facility] [place] [address] [place] [address] Oswaldo Serrano MD #[address] [address] 11/30/2024 3:00 PM INSTRUMENT ASSEMBLY SUPERVISOR Office Visit [facility] [place] [address] [place] [address] [place] Jorge MD #[address] [address] documented as of this encounter Procedures Procedure Name Priority Date/Time Associated Diagnosis Comments EXTRA TUBES STAT 07/02/2021 8:23 PM CDT TIMBO HOLLY HEPARIN/SST TOP TUBE STAT 07/02/2021 8:23 PM CDT GOLD TOP TUBE STAT 07/02/2021 8:23 PM CDT LAVENDER TOP TUBE STAT 07/02/2021 8:2 3 PM CDT CBC WITH AUTO DIFFERENTIAL STAT 07/02/2021 8:23 PM CDT CMP (COMPREHENSIVE METABOLIC PANEL) STAT 07/02/2021 8:23 PM CDT COMPLETE BLOOD COUNT (CBC) WITH DIFF STAT 07/02/2021 8:23 PM CDT C-REACTIVE PROTEIN (CRP) QUANT STAT 07/02/2021 8:[address] CERVICAL SPINE WO/ CONTRAST STAT 07/02/2021 8:[address] ABDOMEN PELVIS W/O CONTRAST STAT 07/02/2021 8:07 PM CDT URINALYSIS REFLEX IF INDICATED BY ABNORMAL RESULTS STAT 07/02/2021 6:39 PM CDT documented in this encounter Results * TIMBO HOLLY HEPARIN/SST TOP TUBE (07/02/2021 8:23 PM CDT) Blood Venipuncture / Unknown 07/02/2021 8:23 PM CDT 07/02/2021 8:49 PM CDT Jhon Meredith MD HEMATOLOGY ORDERABLES Fin al Result [facility] [address] [place] [address] * Lavender Top Tube (07/02/2021 8:23 PM CDT) Blood Venipuncture / Unknown 07/02/2021 8:23 PM CDT 07/02/2021 8:49 PM CDT Jhon Meredith MD HEMATOLOGY ORDERABLES Fin al Result [facility] [address] [place] [address] * Gold Top Tube (07/02/2021 8:23 PM CDT) Blood Venipuncture / Unknown 07/02/2021 8:23 PM CDT 07/02/2021 8:49 PM CDT Jhon Meredith MD CHEMISTRY ORDERABLES Ayanna vazquez Result [facility] [address] [place] [address] * (ABNORMAL) CBC with Auto Differential (07/02/2021 8:23 PM CDT) WBC 6.27 4.00 - 12.00 10(3)/mcL 07/02/2021 8:53 PM CDT [facility] RBC 4.67 3.80 - 5.30 10(6)/mcL 07/02/2021 8:53 PM CDT [facility] HEMOGLOBIN (HGB) 14.7 12.0 - 15.8 g/dL 07/02/2021 8:53 PM CDT [facility] HEMATOCRIT (HCT) 45.1 36.0 - 47.0 % 07/02/2021 8:53 PM CDT [facility] MCV 96.6(H) 82.0 - 96.0 fL 07/02/2021 8:53 PM CDT [facility] MCH 31.5 26.0 - 34.0 pg 07/02/2021 8:53 PM CDT [facility] MCHC 32.6 31.0 - 36.0 g/dL 07/02/2021 8:53 PM CDT [facility] PLATELET COUNT 279 140 - 440 10(3)/[facility] 07/02/2021 8:53 PM CDT [facility] RDW 13.0 11.8 - 15.5 % 07/02/2021 8:53 PM CDT [facility] MPV 9.7 9.7 - 12.4 fL 07/02/2021 8:53 PM CDT [facility] NEUTROPHILS 65.1 47.0 - 73.0 % 07/02/2021 8:53 PM CDT [facility] LYMPHOCYTES 21.2 18.0 - 42.0 % 07/02/2021 8:53 PM CDT [facility] MONOCYTES 8.8 4.0 - 12.0 % 07/02/2021 8:53 PM CDT [facility] EOSINOPHILS 3.8 0.0 - 5.0 % 07/02/2021 8:53 PM CDT [facility] BASOPHILS 1.1(H) 0.0 - 1.0 % 07/02/2021 8:53 PM CDT [facility] ABSOLUTE NEUTROPHILS 4.08 1.60 - 7.70 10(3)/[facility] 07/02/2021 8:53 PM CDT [facility] ABSOLUTE LYMPHOCYTES 1.33 1.30 - 3.20 10(3)/[facility] 07/02/2021 8:53 PM CDT [facility] ABSOLUTE MONOCYTES 0.55 0.20 - 1.00 10(3)/[facility] 07/02/2021 8:53 PM CDT [facility] ABSOLUTE EOSINOPHIL 0.24 0.00 - 0.40 10(3)/[facility] 07/02/2021 8:53 PM CDT [facility] ABSOLUTE BASOPHILS 0.07 0.00 - 0.10 10(3)/[facility] 07/02/2021 8:53 PM CDT [facility] NRBC PER 100 WBC 0 07/02/20 8:53 PM CDT [facility] Blood Venipuncture / Unknown 07/02/2021 8:23 PM CDT 07/02/2021 8:50 PM CDT us Jhon Meredith MD HEMATOLOGY ORDERABLES Fin al Result [facility] [address] [place] [address] * (ABNORMAL) C-Reactive Protein Qnt (Crp) (07/02/2021 8:23 PM CDT) C-REACTIVE PROTEIN 0.72(H) <0.50 mg/dL 07/02/2021 9:12 PM CDT [facility] Blood Venipuncture / Unknown 07/02/2021 8:23 PM CDT 07/02/2021 8:50 PM CDT us Jhon Meredith MD CHEMISTRY ORDERABLES Ayanna l Result [facility] [address] [facility] [place] [address] * (ABNORMAL) CMP (Comprehensive Metabolic Panel) (07/02/2021 8:23 PM CDT) SODIUM 136 136 - 144 mmol/L 07/02/2021 9:12 PM CDT [facility] POTASSIUM 4.1 3.5 - 5.1 mmol/L 07/02/2021 9:12 PM CDT [facility] CHLORIDE 98(L) 100 - 110 mmol/L 07/02/2021 9:12 PM CDT [facility] CO2, VENOUS 29 22 - 32 mmol/L 07/02/2021 9:12 PM CDT [facility] ANION GAP 13.1 8.0 - 20.0 mmol/L 07/02/2021 9:12 PM CDT [facility] GLUCOSE 132(H) 70 - 99 mg/dL 07/02/2021 9:12 PM CDT [facility] BUN 19 6 - 20 mg/dL 07/02/2021 9:12 PM CDT [facility] CREATININE, BLOOD 0.95 0.60 - 1.10 mg/dL 07/02/2021 9:12 PM CDT [facility] BUN/CREATININE RATIO 20 12 - 20 ratio 07/02/2021 9:12 PM CDT [facility] TOTAL PROTEIN 7.6 6.0 - 8.3 g/dL 07/02/2021 9:12 PM CDT [facility] ALBUMIN 4.1 3.5 - 5.2 g/dL 07/02/2021 9:12 PM CDT [facility] Comment: The colormetric methods used for the determination of Albumin may lead to falsely elevated test results in patients suffering from renal failure or insufficiency due to interference with other proteins. A/G RATIO 1.2 1.0 - 2.0 07/02/2021 9:12 PM CDT [facility] CALCIUM 9.4 8.9 - 10.3 mg/dL 07/02/2021 9:12 PM CDT [facility] T BILI 0.4 <=1.2 mg/dL 07/02/2021 9:12 PM CDT [facility] SGOT (AST) 19 <=32 U/L 07/02/2021 9:12 PM CDT [facility] SGPT (ALT) 18 <=41 U/L 07/02/2021 9:12 PM CDT [facility] ALKALINE PHOSPHATASE 174(H) 35 - 105 U/L 07/02/2021 9:12 PM CDT [facility] GFR, EST. NONAFRICAN 60 >=60 07/02/2021 9:12 PM CDT [facility] GFR, EST. >60 >=60 021 9:12 PM CDT [facility] Comment: Creatinine Clearance is the preferred criteria for selecting drug dose adjustments in renally impaired patients. ??The GFR is provided as additional pertinent clinical information. GFR is reported in mL/min/1.73 sq m. Blood Venipuncture / Unknown 07/02/2021 8:23 PM CDT 07/02/2021 8:50 PM CDT us Jhon Meredith MD CHEMISTRY ORDERABLES Ayanna l Result [facility] [address] [place] [address] * CT CERVICAL SPINE WO/ CONTRAST (07/02/2021 8:07 PM CDT) Anatomical Region Laterality Modality Spine N/A Computed Tomogra phy 07/02/2021 8:52 PM CDT Impressions 07/02/2021 8:55 PM CDT IMPRESSION: ?? Mild to moderate multilevel spondylosis of the cervical spine. ??No acute appearing findings. Narrative 07/02/2021 8:55 PM CDT EXAM DESCRIPTION: ?? CT CERVICAL SPINE WO/ CONTRAST REASON FOR STUDY: ?? Neck pain, initial exam, posterior neck pain and head pain for 2 weeks TECHNIQUE: ??Axial images through the cervical spine with sagittal and coronal reformatted images. Automated exposure control was used as a dose optimization technique for this examination. COMPARISON: ?? None FINDINGS: ??ALIGNMENT: ??There is some curvature of spine convex to the left. VERTEBRAE: ??No fracture. Vertebral body heights well-maintained. DISCS: ??Multilevel degenerative disc space narrowing. HARDWARE: ??None in the spine. INDIVIDUAL DISC LEVELS: ??Moderate disc bulges at C3-C4, C4-C5, and C5-C6. ??Mild multilevel facet arthropathy and uncovertebral hypertrophy. UPPER THORACIC: ??Incompletely imaged. No significant osseous spinal stenosis or osseous neural foraminal stenosis. SKULL BASE: ??No significant finding. LUNG APICES: ??No significant abnormality. NECK SOFT TISSUES: ??No significant abnormality. OTHER: ??No other significant findings. THIS IS AN ELECTRONICALLY VERIFIED FINAL REPORT 07/02/2021 8:52 PM - Electronically signed by Tim James M.D. RW: MARY D: ??07/02/2021 8:52 PM T: ??07/02/2021 8:52 PM Report ID: [id number] Reading Location: ??[id number] Procedure Note Tim James MD - 07/02/2021 EXAM DESCRIPTION: CT CERVICAL SPINE WO/ CONTRAST REASON FOR STUDY: Neck pain, initial exam, posterior neck pain and head pain for 2 weeks TECHNIQUE: Axial images through the cervical spine with sagittal and coronal reformatted images. Automated exposure control was used as a dose optimization technique for this examination. COMPARISON: None FINDINGS: ALIGNMENT: There is some curvature of spine convex to the left. VERTEBRAE: No fracture. Vertebral body heights well-maintained. DISCS: Multilevel degenerative disc space narrowing. HARDWARE: None in the spine. INDIVIDUAL DISC LEVELS: Moderate disc bulges at C3-C4, C4-C5, and C5-C6. Mild multilevel facet arthropathy and uncovertebral hypertrophy. UPPER THORACIC: Incompletely imaged. No significant osseous spinal stenosis or osseous neural foraminal stenosis. SKULL BASE: No significant finding. LUNG APICES: No significant abnormality. NECK SOFT TISSUES: No significant abnormality. OTHER: No other significant findings. THIS IS AN ELECTRONICALLY VERIFIED FINAL REPORT 07/02/2021 8:52 PM - Electronically signed by Tim James M.D. RW: MARY Report ID: [id number] Reading Location: [id number] IMPRESSION: Mild to moderate multilevel spondylosis of the cervical spine. No acute appearing findings. us Jhon Meredith MD IMG CT ORDERABLES Final R esult * CT ABDOMEN PELVIS W/O CONTRAST (07/02/2021 8:07 PM CDT) Anatomical Region Laterality Modality Abdomen N/A Computed Tomogra phy 07/02/2021 9:00 PM CDT Impressions 07/02/2021 9:03 PM CDT IMPRESSION: ?? 1. ??Small hiatal hernia. 2. ??No evidence of hydronephrosis or urolithiasis. 3. ??There is some air within the urinary bladder. ??Urinary bladder is partially decompressed with some mild wall thickening. ??This is likely evidence for cystitis. Narrative 07/02/2021 9:03 PM CDT EXAM DESCRIPTION: ?? CT ABDOMEN PELVIS W/O CONTRAST REASON FOR STUDY: ?? Hematuria, unknown cause, pain and burning with urination for 2 weeks TECHNIQUE: ??CT scan of the abdomen and pelvis performed without intravenous and ??without oral contrast using helical scanning technique. Reconstructed coronal and sagittal MPR images reviewed. All images stored on PACS. ??Automated exposure control was used as a dose optimization technique for this examination. COMPARISON: ?? 07/16/2017 FINDINGS: ??The sensitivity for detection of visceral lesions is diminished without the use of intravenous contrast. LOWER CHEST: ??Atelectasis and scarring left lung base. LIVER: ??Normal size. ??No identified cystic or solid masses. GALLBLADDER: ??Surgically absent. BILE DUCTS: ??No intrahepatic or extrahepatic ductal dilatation. SPLEEN: ??Normal size. ??No focal lesions. PANCREAS: ??No identified cystic or solid masses. ??No significant calcifications. No adjacent inflammation or peripancreatic fluid collections. Pancreatic duct not dilated. ADRENALS: ??Normal. KIDNEYS/URINARY TRACT: ??No identified significant cystic or solid masses. No stones. No hydronephrosis or hydroureter. ??There is air within the urinary bladder. ??There is some mild wall thickening of the urinary bladder. GI: ??Small hiatal hernia. ??No dilated bowel loops. No obvious wall thickening. ??Surgically absent appendix. ??No significant diverticular disease. PERITONEUM: ??No ascites or free air. RETROPERITONEUM: ??No mass or adenopathy. REPRODUCTIVE: ??Uterus unremarkable. ??There are no adnexal masses. VASCULATURE: ??No abdominal aortic aneurysm. MUSCULOSKELETAL: ??No significant abnormality. OTHER: ??No other abnormality. THIS IS AN ELECTRONICALLY VERIFIED FINAL REPORT 07/02/2021 9:00 PM - Electronically signed by Tim James M.D. RW: MARY D: ??07/02/2021 9:00 PM T: ??07/02/2021 9:00 PM Report ID: [id number] Reading Location: ??[id number] Procedure Note Tim James MD - 07/02/2021 EXAM DESCRIPTION: CT ABDOMEN PELVIS W/O CONTRAST REASON FOR STUDY: Hematuria, unknown cause, pain and burning with urination for 2 weeks TECHNIQUE: CT scan of the abdomen and pelvis performed without intravenous and without oral contrast using helical scanning technique. Reconstructed coronal and sagittal MPR images reviewed. All images stored on PACS. Automated exposure control was used as a dose optimization technique for this examination. COMPARISON: 07/16/2017 FINDINGS: The sensitivity for detection of visceral lesions is diminished without the use of intravenous contrast. LOWER CHEST: Atelectasis and scarring left lung base. LIVER: Normal size. No identified cystic or solid masses. GALLBLADDER: Surgically absent. BILE DUCTS: No intrahepatic or extrahepatic ductal dilatation. SPLEEN: Normal size. No focal lesions. PANCREAS: No identified cystic or solid masses. No significant calcifications. No adjacent inflammation or peripancreatic fluid collections. Pancreatic duct not dilated. ADRENALS: Normal. KIDNEYS/URINARY TRACT: No identified significant cystic or solid masses. No stones. No hydronephrosis or hydroureter. There is air within the urinary bladder. There is some mild wall thickening of the urinary bladder. GI: Small hiatal hernia. No dilated bowel loops. No obvious wall thickening. Surgically absent appendix. No significant diverticular disease. PERITONEUM: No ascites or free air. RETROPERITONEUM: No mass or adenopathy. REPRODUCTIVE: Uterus unremarkable. There are no adnexal masses. VASCULATURE: No abdominal aortic aneurysm. MUSCULOSKELETAL: No significant abnormality. OTHER: No other abnormality. THIS IS AN ELECTRONICALLY VERIFIED FINAL REPORT 07/02/2021 9:00 PM - Electronically signed by Tim James M.D. RW: MARY Report ID: [id number] Reading Location: [place] [address] IMPRESSION: 1. Small hiatal hernia. 2. No evidence of hydronephrosis or urolithiasis. 3. There is some air within the urinary bladder. Urinary bladder is partially decompressed with some mild wall thickening. This is likely evidence for cystitis. Jhon Meredith MD IMG CT ORDERABLES Final R esult * (ABNORMAL) URINALYSIS REFLEX IF INDICATED BY ABNORMAL RESULTS (07/02/2021 6:39 PM CDT) SPECIFIC GRAVITY 1.005 1.003 - 1.030 07/02/2021 7:21 PM CDT [facility] URINE PH 6.0 5.0 - 9.0 07/02/2021 7:21 PM CDT [facility] WBC ESTERASE Negative Negative 07/02/2021 7:21 PM CDT [facility] NITRITE Negative Negative 07/02/2021 7:21 PM CDT [facility] PROTEIN, RANDOM URINE Negative Negative 07/02/2021 7:21 PM CDT [facility] URINE GLUCOSE, QUAL Negative Negative 07/02/2021 7:21 PM CDT [facility] URINE KETONES Negative Negative 07/02/2021 7:21 PM CDT [facility] UROBILINOGEN Normal Normal mg/dL 07/02/2021 7:21 PM CDT [facility] URINE BLOOD 10 /uL(A) Negative jolene/ul 07/02/2021 7:21 PM CDT [facility] URINALYSIS COLOR Yellow 07/02/20 7:21 PM CDT [facility] URINALYSIS CLARITY Clear 07/02/2021 7:21 PM CDT [facility] WBC (Urine) 0-5 Negative, 0-5 /hpf 07/02/2021 7:21 PM CDT [facility] URINE RBC'S 3-5(A) Negative, 0-2 /hpf 07/02/2021 7:21 PM CDT [facility] EPITHELIAL CELLS Occasional /lpf 07/02/20 7:21 PM CDT [facility] BACTERIA, URINE Few(A) Negative /hpf 07/02/2021 7:21 PM CDT [facility] Urine URINE SPECIMEN / Unknown Non-Phlebotomy Collection / Unknown 07/02/2021 6:39 PM CDT 07/02/2021 7:03 PM CDT Jhon Meredith MD URINE ORDERABLES Final Re sult [facility] [address] [place] [address] documented in this encounter Visit Diagnoses Diagnosis Neck pain- Primary Cervicalgia documented in this encounter Administered Medications Inactive Administered Medications - up to 3 most recent administrations Medication Order MAR Action Action Date Dose Rate Site 0.9 % sodium chloride solution at 500 mL/hr, Intravenous, ONCE, 1 dose, On [place] 07/02/21 at 1999 New Bag 07/02/2021 8:19 PM CDT 1,000 mL 500 mL/hr ketorolac (TORADOL) injection 30 mg 30 mg, Intravenous, ONCE, 1 dose, On [place] 07/02/21 at 1999 Given 07/02/2021 8:21 PM CDT 30 mg orphenadrine (NORFLEX) injection 60 mg 60 mg, Intravenous, ONCE, 1 dose, On [place]ena 07/02/21 at 1999, Contact provider if able to take enteral medications for conversion to enteral alternative. For IV administration, administer medication over 5 minutes and have the patient in a supine position. Given 07/02/2021 8:21 PM CDT 60 mg documented in this encounter Active and Recently Administered Medications Times are shown in CDT. Scheduled Medication Order 06/30/2021 07/01/2021 07/02/2021 0.9 % sodium chloride solution (COMPLETED) at 500 mL/hr, Intravenous, ONCE, 1 dose, On Rowena 07/02/21 at 1999 2018 (New Bag - Prov ider: Irma Hardy RN) ketorolac (TORADOL) injection 30 mg (COMPLETED) 30 mg, Intravenous, ONCE, 1 dose, On [place] 07/02/21 at 1999 2020 (Given - Provid er: Irma Hardy RN) orphenadrine (NORFLEX) injection 60 mg (COMPLETED) 60 mg, Intravenous, ONCE, 1 dose, On Rowena 07/02/21 at 1999, Contact provider if able to take enteral medications for conversion to enteral alternative. For IV administration, administer medication over 5 minutes and have the patient in a supine position. 2020 (Given - Provid er: Irma Hardy RN) documented in this encounter Additional Health Concerns Assessment Noted Time PHQ-9 Depression Total Score: 2 07/18/20 20 4:26 PM CDT documented as of this encounter Care Teams Mercury Purifier Relationship Specialty Start Date End Date Oswaldo Serrano MD #[address] [address] PCP - General Family Medicine 05/19/17 Angel Crowe DPM #[address] [address] Consulting Physician Podiatry 06/16/17 Mora Fritz Behavioral Health Navigator 06/15/18 documented as of this encounter
--- OUTSIDE RECORDS SUMMARY | 2024-10-07 00:26 | XMS_ITS | Encounter Summary ---
Author Organization [facility] Address [address] [place] [address] Phone Care Team Providers Care Animal Care Giver Name Role Phone Oswaldo Serrano MD Primary Care Provider Angel Crowe DPM Unavailable [phone] Mora Fritz Unavailable Unavailable Reason for Visit * Reason Comments Diabetes Mellitus Follow up Encounter Details Date Type Department Care Team (Late st Contact Info) Description 08/04/2021 3:00 PM CDT [facility]medicine [facility] #2 [place] [address] Ok Jorge MD #[address] [address] Type 2 diabetes mellitus with diabetic polyneuropathy, with long-term current use of insulin (HCC) (Primary Dx) Social History Tobacco Use Types [...] as of this encounter Progress Notes * Ok Jorge MD - 08/04/2021 3:00 PM CDT Subject&Objective This was a telemedicine visit with Loretta Penn which took place via Telephone. Loretta Penn is a 60-year-old woman who has type 2 diabetes mellitus. 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 Other pertinent health history includes hypertension, dyslipidemia, and obesity. The patient was initially diagnosed with diabetes approximately>10 years ago. Medical history is taken from the patient and her sister. Currently, the patient takes Lantus 17 units in the morning, Humalog 16 units with breakfast, 16 units with lunch, and 14 units with supper for management of hyperglycemia. The patient denied low blood sugar event or severe hypoglycemia requiring third green party intervention. Her sister reported that her blood sugars have been running mostly between 150 and 200 mg/dL. Assessment and Plan Loretta Penn is a middle-aged woman with type 2 diabetes mellitus whose overall glycemic control was reasonable based on review of her capillary blood glucose report. Treatment consideration and lifestyle modification were discussed with her at some length. Arrangement will be made for Hb A1c measurement at [place]. The patient will return for office reevaluation in 3 months. PLAN: 1. Take Lantus 17 units in the morning 2. Take Humalog 18-18-16 units before each meal 3. Correctional factor [...] be performed and billed. Ok Jorge MD 08/04/2021 documented in this encounter Plan of Treatment Upcoming Encounters Date Type Department Care Team (Late st Contact Info) Description 10/08/2024 2:15 PM LINKING MACHINE OPERATOR Office Visit [facility] UROLOGY #[address] [place] [address] Orlin Urbina APRN, SENIOR MANUFACTURING TECHNICIAN #[address] [place] [address] 10/18/2024 2:15 PM LINKING MACHINE OPERATOR [facility] 1 [place] [address] Oswaldo Serrano MD #[address] [address] Discharge Disposition: Discharged to home or Selfcare 11/29/2024 2:30 PM LINKING MACHINE OPERATOR Office Visit [facility] - Family Medicine - [place] #2 [place] [address] Oswaldo Serrano MD #[address] [address] 11/30/2024 3:00 PM LINKING MACHINE OPERATOR Office Visit [facility] - [facility]ocr[facility] - [place] #2 [place] [address] Ok Jorge MD #[address] [facility] [address] [place] [address] documented as of this encounter Visit Diagnoses Diagnosis Type 2 diabetes mellitus with diabetic polyneuropathy, with long-term current use of insulin (HCC)- Primary documented in this encounter Additional Health Concerns Infection Onset Date Last Indicated Resolved Time COVID - 19 07/28/2021 07/29/2021 08/17/2021 12:1 6 AM LINKING MACHINE OPERATOR Assessment Noted Time PHQ-9 Depression Total Score: 2 07/18/20 20 4:26 PM CDT documented as of this encounter Care Teams Animal Care Giver Relationship Specialty Start Date End Date Oswaldo Serrano MD #[address] [address] PCP - General Family Medicine 05/19/17 Angel Crowe DPM #[address] [address] Consulting Physician Podiatry 06/16/17 Mora Fritz Behavioral Health Navigator 06/15/18 documented as of this encounter
--- OUTSIDE RECORDS SUMMARY | 2024-10-07 00:26 | XMS_ITS | Encounter Summary ---
Author Organization [employer] Care Team Providers Care Strategic Planning Analyst Name Role Phone Oswaldo Serrano MD Primary Care Provider [phone] Angel Crowe DPM Unavailable [phone] Mora Fritz Unavailable Unavailable Encounter Details Date Type Department Care Team (Latest Contact Info) Description 05/11/2021 Travel Social History Tobacco Use Types Packs/Day [...] have Coronavirus / COVID-19? No / Unsure 05/11/2021 4:58 PM CDT documented as of this encounter Plan of Treatment Upcoming Encounters Date Type Department Care Team (Late st Contact Info) Description 10/08/2024 2:15 PM DECK BUILDER Office Visit [facility] UROLOGY #2 [place] [phone] Orlin Urbina, GIFT WRAPPER, TOOL AND GAUGE INSPECTOR #[address] [place] [address] 10/18/2024 2:15 PM DECK BUILDER [facility]ment [facility] 1 [place] [phone] Oswaldo Serrano MD #2 [facility] [address] [place] [address] Discharge Disposition: Discharged to home or Selfcare 11/29/2024 2:30 PM DECK BUILDER Office Visit [facility] - [facility] - [place] #2 [place] [address] Oswaldo Serrano MD #2 [facility] [address] [place] [address] 11/30/2024 3:00 PM DECK BUILDER Office Visit [facility] - Endocr[facility]ology - [place] #2 [place] [address] Ok Jorge MD #2 [facility] [address] [place] [address] documented as of this encounter Visit Diagnoses Not on filedocumented in this encounter Additional Health Concerns Assessment Noted Time PHQ-9 Depression Total Score: 2 07/18/20 20 4:26 PM CDT documented as of this encounter Care Teams Strategic Planning Analyst Relationship Specialty Start Date End Date Oswaldo Serrano MD #[address] [address] PCP - General Family Medicine 05/19/17 Angel Crowe DPM #[address] [address] Consulting Physician Podiatry 06/16/17 Mora Fritz Behavioral Health Navigator 06/15/18 documented as of this encounter
--- OUTSIDE RECORDS SUMMARY | 2024-10-07 00:26 | XMS_ITS | Encounter Summary ---
Author Organization [employer] Care Team Providers Care Ceramic Plater Name Role Phone Oswaldo Serrano MD Primary Care Provider [phone] Angel Crowe DPM Unavailable [phone] Mora Fritz Unavailable Unavailable Encounter Details Date Type Department Care Team (Latest Contact Info) Description 04/14/2021 Travel Social History Tobacco Use Types Packs/Day [...] st Contact Info) Description 10/08/2024 2:15 PM MACHINE DRILLER Office Visit [facility] UROLOGY #2 [place] [phone] Orlin Urbina, CNC MANAGER, EDUCATION DEPARTMENT REGISTRAR #2 [place] [address] 10/18/2024 2:15 PM MACHINE DRILLER [facility] 1 [place] [phone] Oswaldo Serrano MD #2 [facility] [address] [place] [address] Discharge Disposition: Discharged to home or Selfcare 11/29/2024 2:30 PM MACHINE DRILLER Office Visit [facility] - [facility] - [place] #2 [place] [address] Oswaldo Serrano MD #2 [facility] [address] [place] [address] 11/30/2024 3:00 PM MACHINE DRILLER Office Visit [facility] - Endocr[facility]ology - [place] #2 [place] [phone] Ok Jorge MD #2 [facility] [address] [place] [address] documented as of this encounter Visit Diagnoses Not on filedocumented in this encounter Additional Health Concerns Assessment Noted Time PHQ-9 Depression Total Score: 2 07/18/20 20 4:26 PM CDT documented as of this encounter Care Teams Ceramic Plater Relationship Specialty Start Date End Date Oswaldo Serrano MD #[address] [address] PCP - General Family Medicine 05/19/17 Angel Crowe DPM #[address] [address] Consulting Physician Podiatry 06/16/17 Mora Fritz Behavioral Health Navigator 06/15/18 documented as of this encounter
--- OUTSIDE RECORDS SUMMARY | 2024-10-07 00:26 | XMS_ITS | Encounter Summary ---
Author Organization [facility] Address [address] [facility] [place] [address] Phone Care Team Providers Care Cardiac Rn Name Role Phone Oswaldo Serrano MD Primary Care Provider [phone] Angel Crowe DPM Unavailable [phone] Mora Frizt Unavailable Unavailable Reason for Visit * Reason Onset Date Comments Appointment 07/28/2021 Encounter Details Date Type Department Care Team (Late st Contact Info) Description 07/28/2021 Telephone [facility] [address] [place] [address] Oswaldo Serrano MD #[address] [address] Appointment Social History Tobacco Use Types Packs/Day Years [...] encounter Miscellaneous Notes * Telephone Encounter - Bessy Turner RN - 07/28/2021 4:17 PM CDT Patient just checking on appointment for video visit for today at 1530 documented in this encounter Plan of Treatment Upcoming Encounters Date Type Department Care Team (Late st Contact Info) Description 10/08/2024 2:15 PM MODEL MAKER FIREARMS Office Visit [facility] PHYSICIAN [facility] UROLOGY #2 [place] [phone] Orlin Urbina, RURAL HEALTH CONSULTANT, WAXED BAG MACHINE OPERATOR #2 [place] [address] 10/18/2024 2:15 PM MODEL MAKER FIREARMS Appointment [facility] M[facility] 1 [place] [address] Oswaldo Serrano MD #[address] [address] Discharge Disposition: Discharged to home or Selfcare 11/29/2024 2:30 PM MODEL MAKER FIREARMS Office Visit [facility] - Family Medicine [facility] #2 [place] [address] Oswaldo Serrano MD #2 [facility] [address] [place] [address] 11/30/2024 3:00 PM MODEL MAKER FIREARMS Office Visit [facility] - Endocrinology - [place] #2 [place] [address] Ok Jorge MD #[address] [address] documented as of this encounter Visit Diagnoses Not on filedocumented in this encounter Additional Health Concerns Assessment Noted Time PHQ-9 Depression Total Score: 2 07/18/20 20 4:26 PM CDT documented as of this encounter Care Teams Cardiac Rn Relationship Specialty Start Date End Date Oswaldo Serrano MD #[address] [address] PCP - General Family Medicine 05/19/17 Angel Crowe DPM #[address] [address] Consulting Physician Podiatry 06/16/17 Mora Fritz Behavioral Health Navigator 06/15/18 documented as of this encounter
--- OUTSIDE RECORDS SUMMARY | 2024-10-07 00:27 | XMS_ITS | Encounter Summary ---
Author Organization [facility] Address [address] [facility] [place] [address] Phone Care Team Providers Care Beater Room Helper Name Role Phone Oswaldo Serrano MD Primary Care Provider Angel Crowe DPM Unavailable [phone] Mora Fritz Unavailable Unavailable Reason for Visit * Reason Onset Date Comments COVID-19 02/14/2021 Encounter Details Date Type Department Care Team (Late st Contact Info) Description 02/14/2021 Nurse Triage [facility] [address] [place] [address] Oswaldo Serrano MD #[address] [address] COVID-19 Social History Tobacco Use Types Packs/Day Years [...] have Coronavirus / COVID-19? No / Unsure 02/14/2021 8:32 AM CDT documented as of this encounter Miscellaneous Notes * Telephone Encounter - Oswaldo Serrano MD - 02/14/2021 1:22 PM CDT Thanks for sending her to [facility]! * Telephone Encounter - Alondra Marvin RN - 02/14/2021 8:31 AM CDT SITUATION (caller perception/concerns): covid symptoms BACKGROUND (events leading up to call): Started feeling poorly a couple days ago. ASSESSMENT: Patient has sore throat, temperature of 99.9, productive cough, muscle aches. She has received both of her Covid vaccinations. Would like to be seen and tested. RECOMMENDATION: See HCP when office is open. Will go to Urgent care today and will call back with any other needs or concerns. See care advice and disposition for guideline. First positive answer recorded; all responses to prior questions were negative. If symptoms increase, change, or if new symptoms develop, call your HCP or call back. Recommendation based on caller information and is not a diagnosis. Verified and reviewed all triage information with caller. Caller verbalized understanding of information given and denies further questions. Teach-back method utilized. Reason for Disposition ??? [1] COVID-19 infection suspected by caller or triager AND [2] mild symptoms (cough, fever, or others) AND [3] no complications or SOB Protocols used: CORONAVIRUS (COVID-19) DIAGNOSED OR [id number] documented in this encounter Plan of Treatment Upcoming Encounters Date Type Department Care Team (Late st Contact Info) Description 10/08/2024 2:15 PM ZOO CARETAKER Office Visit [facility] #2 [place] [phone] Orlin Urbina APRN, ELECTRICAL EQUIPMENT ASSEMBLER #2 [facility] [place] [address] 10/18/2024 2:15 PM ZOO CARETAKER Appointment [facility] Mammography [address] [place] [address] Oswaldo Serrano MD #2 [facility] [address] [place] [address] Discharge Disposition: Discharged to home or Selfcare 11/29/2024 2:30 PM ZOO CARETAKER [facility] - [place] #2 [place] [address] Oswaldo Serrano MD #2 [facility] [address] [place] [address] 11/30/2024 3:00 PM ZOO CARETAKER [facility] Visit [facility] - [place] #2 [place] [address] Ok Jorge MD #2 [facility] [address] [place] [address] documented as of this encounter Visit Diagnoses Not on filedocumented in this encounter Additional Health Concerns Assessment Noted Time PHQ-9 Depression Total Score: 2 07/18/20 20 4:26 PM CDT documented as of this encounter Care Teams Beater Room Helper Relationship Specialty Start Date End Date Oswaldo Serrano MD #[address] [address] PCP - General Family Medicine 05/19/17 Angel Crowe DPM #[address] [address] Consulting Physician Podiatry 06/16/17 Mora Fritz Behavioral Health Navigator 06/15/18 documented as of this encounter
--- OUTSIDE RECORDS SUMMARY | 2024-10-07 00:27 | XMS_ITS | Encounter Summary ---
Author Organization [facility] Care Team Providers Care Lead Technician Name Role Phone Oswaldo Serrano MD Primary Care Provider [phone] Angel Crowe DPM Unavailable [phone] Mora Fritz Unavailable Unavailable Encounter Details Date Type Department Care Team (Latest Contact Info) Description 02/27/2021 Travel Social History Tobacco Use Types Packs/Day [...] st Contact Info) Description 10/08/2024 2:15 PM NURSING AIDE Office Visit [facility] #2 [place] [address] Orlin Urbina, FILM SPOOLER, CONDENSER SETTER #2 [place] [address] 10/18/2024 2:15 PM NURSING AIDE [facility] 1 [place] [phone] Oswaldo Serrano MD #2 [facility] [address] [place] [address] Discharge Disposition: Discharged to home or Selfcare 11/29/2024 2:30 PM NURSING AIDE [facility] - [place] #2 [place] [phone] Oswaldo Serrano MD #2 [facility] [address] [place] [address] 11/30/2024 3:00 PM NURSING AIDE Office Visit [facility] - [place] #2 [place] [phone] Ok Jorge MD #2 [facility] [address] [place] [phone] documented as of this encounter Visit Diagnoses Not on filedocumented in this encounter Additional Health Concerns Assessment Noted Time PHQ-9 Depression Total Score: 2 07/18/20 20 4:26 PM CDT documented as of this encounter Care Teams Lead Technician Relationship Specialty Start Date End Date Oswaldo Serrano MD #[address] [address] PCP - General Family Medicine 05/19/17 Angel Crowe DPM #[address] [address] Consulting Physician Podiatry 06/16/17 Mora Fritz Behavioral Health Navigator 06/15/18 documented as of this encounter
--- OUTSIDE RECORDS SUMMARY | 2024-10-07 00:27 | XMS_ITS | Encounter Summary ---
Author Organization [facility] Address [address] [place] [address] Phone Care Team Providers Care Television Production Clerk Name Role Phone Oswaldo Serrano MD Primary Care Provider [phone] Angel Crowe DPM Unavailable [phone] Mora Fritz Unavailable Unavailable Reason for Referral * Radiology Services (Routine) - Closed Specialty Diagnoses / Procedures [facility] To Contact Radiology Diagnoses Dizziness Procedures CT ANGIO HEAD W/WO CONTRAST Connor Yuan, JOHN, WET CROWN BLOCKING OPERATOR #[address] [address] Phone: tel: fax: Referral ID Status Reason Start Date Expiration Date Visits Re quested Visits Authorized [id number] Closed 01/14/2021 1 1 Electronically signed by Connor Yuan, ANIMAL BEHAVIOURIST, WET CROWN BLOCKING OPERATOR at 01/28/2021 4:50 PM CDT Reason for Visit * Radiology Services (Routine) - Closed Specialty Diagnoses / Procedures Referred By [facility] t Referred To Contact Radiology Diagnoses Dizziness Procedures CT ANGIO HEAD W/WO CONTRAST Connor Yuan APRN, WET CROWN BLOCKING OPERATOR #[address] [address] Phone: tel: fax: Referral ID Status Reason Start Date Expiration Date Visits Re quested Visits Authorized [id number] Closed 01/14/2021 1 1 Encounter Details Date Type Department Care Team (Latest Contact Info) Description 01/28/2021 4:50 PM CDT - 01/28/2021 11:59 PM CDT Hospital Encounter [facility] CT [address] [place] [address] Connor Yuan APRN, WET CROWN BLOCKING OPERATOR #[address] [address] Discharge Disposition: Discharged to home or Selfcare [...] have Coronavirus / COVID-19? No / Unsure 01/28/2021 3:59 PM CDT documented as of this encounter [...] E11.9, insulin dependent 400 Lancet 3 2019 ASPIR-LOW 81 MG Tablet Delayed Response 05/24/2017 [...] Capsule 2 01/22/2021 1 ergocalciferol (VITAMIN D) [address]21 UNIT CapsuleIndication s:Vitamin D deficiency Take 1 Capsule by mouth once a week. 4 Capsule 2 12/13/2020 1 escitalopram (LEXAPRO) 10 MG Tablet TAKE [...] mL) insulin pen 10/10/1969 3 insulin glargine (Lantus) 100 UNIT/ML Solution 12 Units by Subcutaneous route every morning. 10 mL 2 08/06/2020 1 insulin lispro (HumaLOG) 100 UNIT/ML Solution 14 [...] Contact Info) Description 10/08/2024 2:15 PM SUPERVISOR MALT HOUSE Office Visit [facility] #2 [place] [phone] Orlin Urbina APRN, WET CROWN BLOCKING OPERATOR #2 [place] [address] 10/18/2024 2:15 PM SUPERVISOR MALT HOUSE [facility] 1 [place] [address] Oswaldo Serrano MD #2 [facility] [address] [place] [address] Discharge Disposition: Discharged to home or Selfcare 11/29/2024 2:30 PM SUPERVISOR MALT HOUSE [facility] Visit [facility] - [place] #2 [place] [address] Oswaldo Serrano MD #2 [facility] [address] [place] [address] 11/30/2024 3:00 PM SUPERVISOR MALT HOUSE Office Visit [facility] - [place] #2 [place] [address] Ok Jorge MD #2 [facility] [address] [place] [address] documented as of this encounter Procedures Procedure Name Priority Date/Time Associated Diagnosis Comments CT ANGIO HEAD W/WO CONTRAST Routine 01/28/2021 5:25 PM CDT Dizziness POCT CREATININE Routine 01/28/2021 5:11 PM CDT documented in this encounter Results * CT ANGIO HEAD W/WO CONTRAST (01/28/2021 5:25 PM CDT) Anatomical Region Laterality Modality vascular N/A Computed Tomogra phy 01/29/2021 12:1 4 PM CDT Impressions 01/29/2021 12:17 PM CDT IMPRESSION: ??BRAIN: ?? 1. ??No acute intracranial hemorrhage or midline shift. 2. ??Mild chronic microvascular ischemic type white-matter changes. 3. ??Further assessment with MRI can be obtained as clinically indicated. INTRACRANIAL CTA: ??No intracranial large vessel occlusion. Narrative 01/29/2021 12:17 PM CDT EXAM DESCRIPTION: ?? CT ANGIO HEAD W/WO CONTRAST REASON FOR STUDY: ?? Dizziness and giddiness. ??Persistent/recurrent, cardiac or vascular cause suspected. ??Dizziness for 4 months. TECHNIQUE: ??Axial images were first obtained through the brain without contrast. Post IV contrast scanning, thin section axial imaging were obtained through the brain. ?? 3D MIP images rendered on scanning unit and reviewed at time of interpretation. Automated exposure control was used as a dose optimization technique for this examination. CONTRAST TYPE/DOSE: ?? 100 mL of Isovue 370 injected via ??right antecubital COMPARISON: ?? None. FINDINGS: ??BRAIN: No acute intracranial hemorrhage or midline shift. The size and configuration of the ventricles and sulci normal for patient's age. ??No hydrocephalus. ??The basilar cisterns are preserved. Minor scattered subcortical and periventricular white matter low attenuation in the bilateral cerebral hemispheres is nonspecific but most commonly reflect sequelae of chronic microvascular ischemic type change in a patient of this age. The bilateral globes are symmetric. ??Minor mucosal thickening in the ethmoid air cells on both sides. ??Nasal septum has a mild biconvex curvature. ??Mastoid air cells as imaged are predominantly clear. ??No depressed calvarial fracture. INTRACRANIAL VESSELS: The right internal carotid artery distal cervical and petrous segments are patent. ??Calcified plaque at the cavernous segment without significant stenosis and supraclinoid segment with [id number] stenosis. ?? Left internal carotid artery distal cervical and petrous segments are patent. ??Minor calcified plaque at the cavernous segment without significant stenosis. ??Supraclinoid segment is patent. The right anterior cerebral artery A1 segment is minimally smaller in caliber when compared to the contralateral side, favored to be developmental. ??The middle cerebral artery proximal segments are patent. The left anterior and middle cerebral artery proximal branches are patent. Intradural segments of the bilateral vertebral arteries, basilar artery and proximal segments of the bilateral superior cerebellar and posterior cerebral arteries are patent. THIS IS AN ELECTRONICALLY VERIFIED FINAL REPORT 01/29/2021 12:14 PM - Electronically signed by Marcos Darby D.O. AP: AP D: ??01/29/2021 12:14 PM T: ??01/29/2021 12:14 PM Report ID: [id number] Reading Location: ??[id number] Procedure Note Marcos Darby DO - 01/29/2021 EXAM DESCRIPTION: CT ANGIO HEAD W/WO CONTRAST REASON FOR STUDY: Dizziness and giddiness. Persistent/recurrent, cardiac or vascular cause suspected. Dizziness for 4 months. TECHNIQUE: Axial images were first obtained through the brain without contrast. Post IV contrast scanning, thin section axial imaging were obtained through the brain. 3D MIP images rendered on scanning unit and reviewed at time of interpretation. Automated exposure control was used as a dose optimization technique for this examination. CONTRAST TYPE/DOSE: 100 mL of Isovue 370 injected via right antecubital COMPARISON: None. FINDINGS: BRAIN: No acute intracranial hemorrhage or midline shift. The size and configuration of the ventricles and sulci normal for patient's age. No hydrocephalus. The basilar cisterns are preserved. Minor scattered subcortical and periventricular white matter low attenuation in the bilateral cerebral hemispheres is nonspecific but most commonly reflect sequelae of chronic microvascular ischemic type change in a patient of this age. The bilateral globes are symmetric. Minor mucosal thickening in the ethmoid air cells on both sides. Nasal septum has a mild biconvex curvature. Mastoid air cells as imaged are predominantly clear. No depressed calvarial fracture. INTRACRANIAL VESSELS: The right internal carotid artery distal cervical and petrous segments are patent. Calcified plaque at the cavernous segment without significant stenosis and supraclinoid segment with [id number]-ud-[id number] stenosis. Left internal carotid artery distal cervical and petrous segments are patent. Minor calcified plaque at the cavernous segment without significant stenosis. Supraclinoid segment is patent. The right anterior cerebral artery A1 segment is minimally smaller in caliber when compared to the contralateral side, favored to be developmental. The middle cerebral artery proximal segments are patent. The left anterior and middle cerebral artery proximal branches are patent. Intradural segments of the bilateral vertebral arteries, basilar artery and proximal segments of the bilateral superior cerebellar and posterior cerebral arteries are patent. THIS IS AN ELECTRONICALLY VERIFIED FINAL REPORT 01/29/2021 12:14 PM - Electronically signed by Marcos Darby D.O. AP: AP Report ID: [id number] Reading Location: [id number] IMPRESSION: BRAIN: 1. No acute intracranial hemorrhage or midline shift. 2. Mild chronic microvascular ischemic type white-matter changes. 3. Further assessment with MRI can be obtained as clinically indicated. INTRACRANIAL CTA: No intracranial large vessel occlusion. us Connor Yuan APRN, CNP IMJae CT ORDERABLE S Final Result * POCT Creatinine (01/28/2021 5:11 PM CDT) CREATININE - POCT 0.9 0.6 - 1.3 mg/dL 01/28/2021 5:12 PM CDT [facility] Blood 01/28/2021 5:11 PM CDT 01/28/2021 5:12 PM CDT None Provider POINT OF CARE TESTING Final Resu lt [facility] #1 [place] [address] documented in this encounter Visit Diagnoses Diagnosis Dizziness Dizziness and giddiness documented in this encounter Administered Medications Inactive Administered Medications - up to 3 most recent administrations Medication Order MAR Action Action Date Dose Rate Site iopamidol (ISOVUE-370) 76 % injection 100 mL 100 mL, Intravenous, ONCE, 1 dose, On Tue01/28/21 at 1730 Given 01/28/2021 5:20 PM CDT 100 mL documented in this encounter Additional Health Concerns Assessment Noted Time PHQ-9 Depression Total Score: 2 07/18/20 20 4:26 PM CDT documented as of this encounter Care Teams Television Production Clerk Relationship Specialty Start Date End Date Oswaldo Serrano MD #[address] [address] PCP - General Family Medicine 05/19/17 Angel Crowe DPM #[address] [address] Consulting Physician Podiatry 06/16/17 Mora Fritz Behavioral Health Navigator 06/15/18 documented as of this encounter
--- OUTSIDE RECORDS SUMMARY | 2024-10-07 00:27 | XMS_ITS | Encounter Summary ---
Author Organization [facility] Address [address] [place] [address] Phone Care Team Providers Care Telescope Maintenance Name Role Phone Oswaldo Serrano MD Primary Care Provider [phone] Angel Crowe DPM Unavailable Mora Fritz Unavailable Unavailable Ok Jorge MD Unavailable Orlin Urbina APRN, SAILING INSTRUCTOR Unavailable [phone] Reason for Visit * Reason Comments Medication Refill Encounter Details Date Type Department Care Team (Late st Contact Info) Description 02/18/2021 Refill [facility] - [place] #2 [place] [address] Connor Yuan APRN, SAILING INSTRUCTOR #[address] [address] Medication Refill Social History Tobacco Use Types [...] have Coronavirus / COVID-19? No / Unsure 02/16/2021 12:28 PM CDT documented as of this encounter Miscellaneous Notes * Telephone Encounter - Connie Gamez RN - 02/18/2021 1:42 PM CDT Per nursing clinical judgement, provider to review and approve the medication(s) order(s) if appropriate. Last OV 02/16/21, F/U 02/27/21, Last Rx 12/13/20, Lab Vitamin D lab 12/13/20 26 Connie RN Requested Prescriptions Pending Prescriptions Disp Refills ergocalciferol (VITAMIN D) 30969 UNIT Capsule [Pharmacy Med Name: VITAMIN D 50,000UNIT CAP STR] 4 Capsule 2 Sig: TAKE ONE CAPSULE BY MOUTH ONCE WEEKLY [facility] Off-Protocol Failed - 02/18/2021 1:06 PM Failed - Medication not assigned to a protocol, review manually. Passed - Valid encounter within last 12 months Past Office Visits Recent Outpatient Visits 2 days ago B12 deficiency [facility] - Oswaldo Moreno MD 1 month ago UTI symptoms [facility] - Connor Hutchinson APN, SAILING INSTRUCTOR 2 months ago Essential hypertension [facility] - Oswaldo Moreno MD 2 months ago Intractable cluster headache syndrome, unspecified chronicity pattern [facility] - Oswaldo Moreno MD 2 months ago Subacute maxillary sinusitis [facility] [place] Upcoming Appointments Future Appointments In 1 week Oswaldo Serrano MD [facility] - Family Medicine - [place], [facility] In 2 weeks [facility]; [facility] Ultrasound, [facility] In 2 weeks Ok Jorge MD [facility] - Endocrinology [facility] BIOPHYSICS TEACHER - Recent and Past Visits Recent Visits Date Type Provider Dept 02/16/21 Office Visit Oswaldo Serrano MD [facility] 01/14/21 Office Visit Connor Yuan APN, SAILING INSTRUCTOR [facility] 12/19/20 Office Visit Oswaldo Serrano MD [facility] 12/18/20 Telemedicine Oswaldo Serrano MD [facility] 12/08/20 Telemedicine Oswaldo Serrano MD [facility] 11/07/20 Telemedicine Connor Yuan APN, SAILING INSTRUCTOR [facility] [place] 10/09/20 Office Visit Oswaldo Serrano MD [facility] 09/16/20 Telemedicine Oswaldo Serrano MD [facility] 07/18/20 Office Visit Connor Yuan APN, SAILING INSTRUCTOR [facility] [place] 07/11/20 Telemedicine Connor Yuan APN, SAILING INSTRUCTOR [facility] Showing recent visits within past 460 days with a meds authorizing provider and meeting all other requirements Future Appointments Date Type Provider Dept 02/27/21 Appointment Oswaldo Serrano MD [facility] Showing future appointments within next 90 days with a meds authorizing provider and meeting all other requirements documented in this encounter Plan of Treatment Upcoming Encounters Date Type Department Care Team (Late st Contact Info) Description 10/08/2024 2:15 PM COCONUT JELLY ROLLER Office Visit [facility] #2 [place] [address] Orlin Urbina APRN, SAILING INSTRUCTOR #2 [place] [address] 10/18/2024 2:15 PM COCONUT JELLY ROLLER Appointment [facility] Mamm[facility] 1 [place] [address] Oswaldo Serrano MD #[address] [address] Discharge Disposition: Discharged to home or Selfcare 11/29/2024 2:30 PM COCONUT JELLY ROLLER [facility] #2 [place] [address] Oswaldo Serrano MD #[address] [address] 11/30/2024 3:00 PM COCONUT JELLY ROLLER [facility] Visit [facility] - Endocrinology - [place] #2 [place] [address] Ok Jorge MD #[address] [address] documented as of this encounter Visit Diagnoses Diagnosis Vitamin D deficiency Unspecified vitamin D deficiency documented in this encounter Additional Health Concerns Infection Onset Date Last Indicated Resolved Time COVID - 19 07/28/2021 07/29/2021 08/17/2021 12:1 6 AM COCONUT JELLY ROLLER Assessment Noted Time PHQ-9 Depression Total Score: 2 07/18/20 20 4:26 PM CDT documented as of this encounter Care Teams Telescope Maintenance Relationship Specialty Start Date End Date Oswaldo Serrano MD #[address] [address] PCP - General Family Medicine 05/19/17 Angel Crowe DPM #2 [facility] [address] [place] [address] Consulting Physician Podiatry 06/16/17 Mora Fritz Behavioral Health Navigator 06/15/18 Ok [facility] [address] [place] [address] Consulting Physician Endocrinology 05/12/22 Orlin Urbina, RECOVERY SPECIALIST, SAILING INSTRUCTOR #2 [place] [address] Nurse Practitioner Advanced Practice Nurse 11/09/22 documented as of this encounter
--- OUTSIDE RECORDS SUMMARY | 2024-10-07 00:27 | XMS_ITS | Encounter Summary ---
Author Organization [facility] Address [address] [place] [address] Phone Care Team Providers Care Preforming Machine Operator Name Role Phone Oswaldo Serrano MD Primary Care Provider Angel Crowe DPM Unavailable Mora Fritz Unavailable Unavailable Reason for Visit * Reason Comments Diabetes Mellitus 2 week f/u Encounter Details Date Type Department Care Team (Late st Contact Info) Description 12/15/2020 3:30 PM TOOL GRINDER Telemedicine [facility] - Endocrinology - [place] #2 [place] [address] Ok Jorge MD #[address] [address] Type 2 diabetes mellitus with [...] have Coronavirus / COVID-19? No / Unsure 12/15/2020 3:47 PM TOOL GRINDER documented as of this encounter Last Filed Vital Signs Vital Sign Reading Time Taken Comments Blood Pressure - - Pulse - - Temperature - - Respiratory Rate - - Oxygen Saturation - - Inhaled Oxygen Concentration - - Weight 127 kg (280 lb) 12/15/2020 3:16 PM TOOL GRINDER pt s gave verbal Height 167.6 cm (5' 6 ) 12/15/2020 3:16 PM TOOL GRINDER Body Mass Index 45.19 12/15/2020 3:16 PM TOOL GRINDER documented in this encounter Progress Notes * Ok Jorge MD - 12/15/2020 3:30 PM CST Subject&Objective This was a telemedicine visit with Loretta Penn which took place via Telephone. Loretta Penn is a 59-year-old woman who has type 2 diabetes mellitus. 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 Other pertinent health history includes hypertension, dyslipidemia, and obesity. The patient was initially diagnosed with diabetes >10 years ago. Currently, the patient takes Lantus 14 units at bedtime and Humalog 14 units before each meal for management of hyperglycemia. The patient has infrequent, mild low blood sugar event, but she denied severe hypoglycemia requiring third green party intervention. Her sister reported that morning blood sugarshave been running consistently between 170 and 419 mg/dL with blood sugars checked at other times of the day consistently in the range of 80 to 270 mg/ dL. Physical Exam Unable to obtain Assessment and Plan Loretta Penn is a middle-aged woman with type 2 diabetes mellitus whose glycemic control was suboptimal based on review of her capillary blood glucose record. Treatment consideration and compliance were discussed with her and her sister at great length. She will raise Lantus to 17 units in the morning and take Humalog 14 units before each meal for management of hyperglycemia. The patient will check blood sugar consistently before each meal and at bedtime. Her sister will then forward these results for review in 1-2 weeks. The patient will return for office reevaluation in 2 months. PLAN: 1. Increase Lantus to 17 units in the morning 2. Take Humalog 14 units before each meal 3. Monitor blood sugar QAC/QHS 4. Send CBG log for review in 1-2 weeks 5. Further plan based on #4 6. Contact Endocrinology Clinic for low blood sugar events 7. RTC in 2 months Obesity PLAN: 1. Low carb and calorie diet 2. Avoid snack and beverage between meal and at bedtime The patient was assessed via telephone for a duration of 25 minutes, regarding hyperglycemia. The patient verbally consented for this service to be performed and billed. Ok Jogre MD 12/15/2020 GRINDER documented in this encounter Plan of Treatment Upcoming Encounters Date Type Department Care Team (Late st Contact Info) Description 10/08/2024 2:15 PM TOOL GRINDER Office Visit [facility] UROLOGY #2 [place] [address] Orlin Urbina, COMPUTER ARTIST, DECORATOR STORE #2 [place] [address] 10/18/2024 2:15 PM TOOL GRINDER Appointment [facility] Mammography 1 [place] [address] Oswaldo Serrano MD #[address] [address] Discharge Disposition: Discharged to home or Selfcare 11/29/2024 2:30 PM TOOL GRINDER Office Visit [facility] - [facility] #2 [place] [address] Oswaldo Serrano MD #[address] [address] 11/30/2024 3:00 PM TOOL GRINDER Office Visit [facility] - Endocrinology - [place] #2 [place] [address] Ok Jorge MD #[address] [address] documented as of this encounter Visit Diagnoses Diagnosis Type 2 diabetes mellitus with diabetic polyneuropathy, with long-term current use of insulin (HCC)- Primary Insulin dose changed (HCC) documented in this encounter Additional Health Concerns Assessment Noted Time PHQ-9 Depression Total Score: 2 07/18/20 4:26 PM CDT documented as of this encounter Care Teams Preforming Machine Operator Relationship Specialty Start Date End Date Oswaldo Serrano MD #[address] [address] PCP - General Family Medicine 05/19/17 Agnel Crowe DPM #[address] [address] Consulting Physician Podiatry 06/16/17 Mora Fritz Behavioral Health Navigator 06/15/18 documented as of this encounter
--- OUTSIDE RECORDS SUMMARY | 2024-10-07 00:27 | XMS_ITS | Encounter Summary ---
Author Organization [facility] Address [address] [place] [address] Phone Care Team Providers Care Cane Furniture Maker Name Role Phone Oswaldo Serrano MD Primary Care Provider [phone] Angel Crowe DPM Unavailable [phone] Mora Fritz Unavailable Unavailable Reason for Visit * Reason Comments Headache Encounter Details Date Type Department Care Team (Late st Contact Info) Description 12/18/2020 1:00 PM MEDICAL CLAIMS PROCESSOR Telemedicine [facility] - Family Medicine [facility] #2 [place] [address] Oswaldo Serrano MD #[address] [address] Intractable cluster headache syndrome, unspecified chronicity pattern (Primary Dx); Hypotension, unspecified hypotension type Social History Tobacco Use Types Packs/Day Years [...] COVID-19? No / Unsure 12/15/2020 3:47 PM MEDICAL CLAIMS PROCESSOR documented as of this encounter Progress Notes * Oswaldo Serrano MD - 12/18/2020 1:00 PM CST Patient was assessed via telephone for a duration of 5 minutes. Patient verbally consented for thisservice to be performed and billed. CC: Headache. S: BP was 97/76. DF=473 yesterday, no around 100. Taking Tylenol OTC. See Dr. Bessy lFores a week ago and has US scheduled for later this month. O: Psych: baseline alert & oriented. A/P: 1. Headache - probably due to hypotension. 2. F/U with me tomorrow morning at 11:30 AM & told family to bring her BP recordings & medicine bottles. CAL CLAIMS PROCESSOR documented in this encounter Plan of Treatment Upcoming Encounters Date Type Department Care Team (Late st Contact Info) Description 10/08/2024 2:15 PM MEDICAL CLAIMS PROCESSOR Office Visit [facility]OLOGY #2 [place] [address] Orlin Urbina, COMPLIANCE TESTER, LICENSED OPTICAL DISPENSER #2 [place] [address] 10/18/2024 2:15 PM MEDICAL CLAIMS PROCESSOR Appointment [facility] Mammography 1 [facility] [place] [address] Oswaldo Serrano MD #[address] [address] Discharge Disposition: Discharged to home or Selfcare 11/29/2024 2:30 PM MEDICAL CLAIMS PROCESSOR Office Visit [facility] - Family Medicine [facility] #2 [place] [address] Oswaldo Serrano MD #[address] [address] 11/30/2024 3:00 PM MEDICAL CLAIMS PROCESSOR Office Visit [facility] - Endocrinology [facility] #2 [place] [address] Ok Jorge MD #[address] [address] documented as of this encounter Visit Diagnoses Diagnosis Intractable cluster headache syndrome, unspecified chronicity pattern- Primary Hypotension, unspecified hypotension type documented in this encounter Additional Health Concerns Assessment Noted Time PHQ-9 Depression Total Score: 2 07/18/20 20 4:26 PM CDT documented as of this encounter Care Teams Cane Furniture Maker Relationship Specialty Start Date End Date Oswaldo Serrano MD #[address] [address] PCP - General Family Medicine 05/19/17 Angel Crowe DPM #[address] [address] Consulting Physician Podiatry 06/16/17 Mora Fritz Behavioral Health Navigator 06/15/18 documented as of this encounter
--- OUTSIDE RECORDS SUMMARY | 2024-10-07 00:27 | XMS_ITS | Encounter Summary ---
Author Organization [employer] Care Team Providers Care Sanitation Truck Driver Name Role Phone Oswaldo Serrano MD Primary Care Provider [phone] Angel Crowe DPM Unavailable [phone] Mora Fritz Unavailable Unavailable Encounter Details Date Type Department Care Team (Latest Contact Info) Description 01/28/2021 Travel Social History Tobacco Use Types Packs/Day [...] Contact Info) Description 10/08/2024 2:15 PM HAND LASTER Office Visit [facility] UROLOGY #2 [place] [address] Orlin Urbina, VINEYARD WORKER, VIDEO GAME TECHNICIAN #2 [place] [address] 10/18/2024 2:15 PM HAND LASTER [facility] 1 [place] [address] Oswaldo Serrano MD #2 [facility] [address] [place] [address] Discharge Disposition: Discharged to home or Selfcare 11/29/2024 2:30 PM HAND LASTER Office Visit [facility] - Family Medicine - [place] #2 [place] [address] Oswaldo Serrano MD #2 [facility] [address] [place] [address] 11/30/2024 3:00 PM HAND LASTER Office Visit [facility] - Endocrinology - [place] #2 [place] [address] Ok Jorge MD #2 [facility] [address] [place] [address] documented as of this encounter Visit Diagnoses Not on filedocumented in this encounter Additional Health Concerns Assessment Noted Time PHQ-9 Depression Total Score: 2 07/18/20 20 4:26 PM CDT documented as of this encounter Care Teams Sanitation Truck Driver Relationship Specialty Start Date End Date Oswaldo Serrano MD #[address] [address] PCP - General Family Medicine 05/19/17 Angel Crowe DPM #[address] [address] Consulting Physician Podiatry 06/16/17 Mora Fritz Behavioral Health Navigator 06/15/18 documented as of this encounter
--- OUTSIDE RECORDS SUMMARY | 2024-10-07 00:27 | XMS_ITS | Encounter Summary ---
Author Organization [facility] Address [address] [place] [address] Phone Care Team Providers Care Class C Truck Driver Name Role Phone Oswaldo Serrano MD Primary Care Provider Angel Crowe DPM Unavailable [phone] Mora Fritz Unavailable Unavailable Encounter Details Date Type Department Care Team (Late st Contact Info) Description 01/14/2021 Telephone [facility] - Family Medicine [facility] #2 [place] [address] Connor Yuan, SLEEVE BOTTOM FELLER, SPORTS BOOK BOARD ATTENDANT #[address] [address] Social History Tobacco Use Types [...] have Coronavirus / COVID-19? No / Unsure 01/14/2021 12:55 PM CDT documented as of this encounter Miscellaneous Notes * Telephone Encounter - Connor Yuan APN, YUDI - 01/14/2021 3:26 PM CDT Orders only documented in this encounter Plan of Treatment Upcoming Encounters Date Type Department Care Team (Late st Contact Info) Description 10/08/2024 2:15 PM INSIDE BARREL POLISHER Office Visit [facility] UROLOGY #2 [place] [address] Orlin Urbina APRN, SPORTS BOOK BOARD ATTENDANT #2 [place] [address] 10/18/2024 2:15 PM INSIDE BARREL POLISHER Appointment [facility] Mammography 1 [place] [address] Oswaldo Serrano MD #[address] [address] Discharge Disposition: Discharged to home or Selfcare 11/29/2024 2:30 PM INSIDE BARREL POLISHER Office Visit [facility] - Family Medicine [facility] #2 [place] [address] Oswaldo Serrano MD #[address] [address] 11/30/2024 3:00 PM INSIDE BARREL POLISHER Office Visit [facility] - Endocrinology - [place] #[address] [place] [address] Ok Jorge MD #[address] [facility] [address] [place] [address] documented as of this encounter Results * CULTURE, URINE (01/14/2021 3:41 PM CDT) CULTURE RESULTS ESCHERICHIA COLI 01/16/2021 4:00 PM CDT [facility] Culture URINE SPECIMEN / Unknown Non-Phlebotomy Collection / Unknown 01/14/2021 3:41 PM CDT 01/14/2021 3:41 PM CDT Narrative Organism Antibiotic Method Susceptibility Escherichia coli Ampicillin [facility] VITEK IIB 8 mcg/ml: Susceptible Escherichia coli Ampicillin/sulbactam [facility] VITEK IIB 4 mcg/ml: Susceptible Escherichia coli Cefazolin [facility] VITEK [...] VITEK I IB <=20 mcg/ml: Susceptible us Connor Yuan APRN, SPORTS BOOK BOARD ATTENDANT MICROBIOLOGY - G ENERAL ORDERABLES Final Result [facility] [address] [place] [address], documented in this encounter Visit Diagnoses Diagnosis Abnormal urinalysis- Primary Other nonspecific finding on examination of urine documented in this encounter Additional Health Concerns Assessment Noted Time PHQ-9 Depression Total Score: 2 07/18/20 20 4:26 PM CDT documented as of this encounter Care Teams Class C Truck Driver Relationship Specialty Start Date End Date Oswaldo Serrano MD #[address] [address] PCP - General Family Medicine 05/19/17 Angel Crowe DPM #[address] [address] Consulting Physician Podiatry 06/16/17 Mora Fritz Behavioral Health Navigator 06/15/18 documented as of this encounter
--- OUTSIDE RECORDS SUMMARY | 2024-10-07 00:27 | XMS_ITS | Encounter Summary ---
Author Organization [employer] Care Team Providers Care Vascular Technologist Name Role Phone Oswaldo Serrano MD Primary Care Provider [phone] Angel Crowe DPM Unavailable [phone] Mora Fritz Unavailable Unavailable Encounter Details Date Type Department Care Team (Latest Contact Info) Description 02/14/2021 Travel Social History Tobacco Use Types Packs/Day [...] st Contact Info) Description 10/08/2024 2:15 PM DOPE DRY HOUSE OPERATOR Office Visit [facility] UROLOGY #2 [place] [address] Orlin Urbina, DISPLAY SPECIALIST, LACING OPERATOR #2 [place] [address] 10/18/2024 2:15 PM DOPE DRY HOUSE OPERATOR [facility] 1 [place] [address] Oswaldo Serrano MD #2 [facility] [address] [place] [address] Discharge Disposition: Discharged to home or Selfcare 11/29/2024 2:30 PM DOPE DRY HOUSE OPERATOR Office Visit [facility] - Family Medicine - [place] #2 [place] [address] Oswaldo Serrano MD #2 [facility] [address] [place] [address] 11/30/2024 3:00 PM DOPE DRY HOUSE OPERATOR Office Visit [facility] - Endocrinology - [place] #2 [place] [address] Ok Jorge MD #2 [facility] [address] [place] [address] documented as of this encounter Visit Diagnoses Not on filedocumented in this encounter Additional Health Concerns Assessment Noted Time PHQ-9 Depression Total Score: 2 07/18/20 20 4:26 PM CDT documented as of this encounter Care Teams Vascular Technologist Relationship Specialty Start Date End Date Oswaldo Serrano MD #[address] [address] PCP - General Family Medicine 05/19/17 Angel Crowe DPM #[address] [address] Consulting Physician Podiatry 06/16/17 Mora Fritz Behavioral Health Navigator 06/15/18 documented as of this encounter
--- OUTSIDE RECORDS SUMMARY | 2024-10-07 00:27 | XMS_ITS | Encounter Summary ---
Author Organization [employer] Care Team Providers Care Pipe Racker Name Role Phone Oswaldo Serrano MD Primary Care Provider [phone] Angel Crowe DPM Unavailable [phone] Mora Fritz Unavailable Unavailable Encounter Details Date Type Department Care Team (Latest Contact Info) Description 02/16/2021 Travel Social History Tobacco Use Types Packs/Day [...] st Contact Info) Description 10/08/2024 2:15 PM MIDDLE SCHOOL TEACHER Office Visit [facility]YS[facility] UROLOGY #2 [place] [address] Orlin Urbina, CORK SLABS SAWYER, COBOL APPLICATION DEVELOPER #2 [place] [address] 10/18/2024 2:15 PM MIDDLE SCHOOL TEACHER Appointment [facility] Mammography 1 [place] [address] Oswaldo Serrano MD #2 [facility] [address] [place] [address] Discharge Disposition: Discharged to home or Selfcare 11/29/2024 2:30 PM MIDDLE SCHOOL TEACHER Office Visit [facility] - Family Medicine - [place] #2 [place] [address] Oswaldo Serrano MD #2 [facility] [address] [place] [address] 11/30/2024 3:00 PM MIDDLE SCHOOL TEACHER Office Visit [facility] - Endocrinology - [place] #2 [place] [address] Ok Jorge MD #2 [facility] [address] [place] [address] documented as of this encounter Visit Diagnoses Not on filedocumented in this encounter Additional Health Concerns Assessment Noted Time PHQ-9 Depression Total Score: 2 07/18/20 20 4:26 PM CDT documented as of this encounter Care Teams Pipe Racker Relationship Specialty Start Date End Date Oswaldo Serrano MD #[address] [address] PCP - General Family Medicine 05/19/17 Angel Crowe DPM #[address] [address] Consulting Physician Podiatry 06/16/17 Mora Fritz Behavioral Health Navigator 06/15/18 documented as of this encounter
--- OUTSIDE RECORDS SUMMARY | 2024-10-07 00:27 | XMS_ITS | Encounter Summary ---
Author Organization [facility] Address [address] [place] [address] Phone Care Team Providers Care Induction Machine Setter Name Role Phone Oswaldo Serrano MD Primary Care Provider Angel Crowe DPM Unavailable [phone] Mora Fritz Unavailable Unavailable Reason for Visit * Reason Onset Date Comments Results 02/16/2021 Encounter Details Date Type Department Care Team (Late st Contact Info) Description 02/16/2021 Telephone [facility] - Family Medicine [facility] #2 [place] [phone] Oswaldo Serrano MD #[address] [address] Results Social History Tobacco Use Types Packs/Day [...] Telephone Encounter - Zainab Roblero RN - 02/24/2021 9:30 AM CDT Received notification that this was not read. Spoke with tawanda doshi to inform. * Telephone Encounter - Zainab Roblero RN - 02/16/2021 7:23 AM CDT Sent to my chart * Telephone Encounter - Zainab Roblero RN - 02/16/2021 7:23 AM CDT ----- Message from Oswaldo Serrano MD sent at 02/15/2021 7:33 PM CDT ----- Let her know the B12 is low-normal, and I will put her on daily pills for this. Recheck labs in 3 months (nonfasting). Order entered. Thanks! documented in this encounter Plan of Treatment Upcoming Encounters Date Type Department Care Team (Late st Contact Info) Description 10/08/2024 2:15 PM MOTOR COACH DRIVER Office Visit [facility] #2 [place] [address] Orlin Urbina, GROCERY DEPARTMENT MANAGER, SHEET METAL DUCT INSTALLER HELPER #2 [place] [address] 10/18/2024 2:15 PM MOTOR COACH DRIVER [facility] 1 [place] [address] Oswaldo Serrano MD #[address] [address] Discharge Disposition: Discharged to home or Selfcare 11/29/2024 2:30 PM MOTOR COACH DRIVER Office Visit [facility] - Family Medicine [facility] #2 [place] [address] Oswaldo Serrano MD #[address] [address] 11/30/2024 3:00 PM MOTOR COACH DRIVER Office Visit [facility] - Endocrinology [facility] #2 [place] [address] Ok Jorge MD #[address] [address] documented as of this encounter Visit Diagnoses Not on filedocumented in this encounter Additional Health Concerns Assessment Noted Time PHQ-9 Depression Total Score: 2 07/18/20 20 4:26 PM CDT documented as of this encounter Care Teams Induction Machine Setter Relationship Specialty Start Date End Date Oswaldo Serrano MD #[address] [address] PCP - General Family Medicine 05/19/17 Angel Crowe DPM #[address] [place] [address] Consulting Physician Podiatry 06/16/17 Mora Fritz Behavioral Health Navigator 06/15/18 documented as of this encounter
--- OUTSIDE RECORDS SUMMARY | 2024-10-07 00:27 | XMS_ITS | Encounter Summary ---
Author Organization [facility] Address [address] [place] [address] Phone Care Team Providers Care Chemistry Lab Instructor Name Role Phone Oswaldo Serrano MD Primary Care Provider [phone] Angel Crowe DPCiara Unavailable Mora Fritz Unavailable Unavailable Ok Jorge MD Unavailable Orlin Urbina APRN, FABRIC PATTERN GRADER Unavailable + [phone] Reason for Visit * Reason Comments Medication Refill Encounter Details Date Type Department Care Team (Late st Contact Info) Description 12/10/2020 Refill [facility] - [place] #2 [place] [address] Oswaldo Serrano MD #[address] [address] Medication Refill Social History Tobacco Use Types [...] have Coronavirus / COVID-19? No / Unsure 12/13/2020 11:23 AM VEHICLE REFINISHER documented as of this encounter Miscellaneous Notes * Telephone Encounter - Maria Luisa Novak RN - 12/10/2020 4:38 PM CST Last OV 12/08/20. Last Rx 10/30/20 #60 with no refills. Medication failed the protocol, provider to review and approve the medication order if appropriate. Requested Prescriptions Pending Prescriptions Disp Refills DOK 100 MG Capsule [Pharmacy Med Name: DOK 100 MG CAP MECHE] 60 Capsule 0 Sig: TAKE ONE CAPSULE BY MOUTH TWICE DAILY Not Delegated - Over the Counter: OTC Failed - 12/10/2020 4:27 PM Failed - This refill cannot be delegated Passed - Valid encounter within last 12 months Past Office Visits Recent Outpatient Visits 2 days ago Subacute maxillary sinus[facility] - Oswaldo Moreno MD 1 month ago [facility] - Connor Hutchinson APN, YUDI 2 months ago Flu-like symptoms [facility] - Oswaldo Moreno MD 2 months ago Chronic joint pain [facility] - Oswaldo Moreno MD 4 months ago Diabetic polyneuropathy associated with type 2 diabetes mellitus (HCC) [facility] - Connor Hutchinson APN, YUDI Upcoming Appointments Future Appointments In 5 days Ok Jorge MD [facility] - [facility]ocr[facility]ology - [place], [facility] METAL TESTER - Recent and Past Visits Recent Visits Date Type Provider Dept 12/08/20 Telemedicine Oswaldo Serrano MD [facility] 11/07/20 Telemedicine Connor Yuan APN, YUDI [place] 10/09/20 Office Visit Oswaldo Serrano, MD [facility] 09/16/20 Telemedicine Oswaldo Serrano, MD [facility] 07/18/20 Office Visit Connor Yuan APN, YUDI [facility] 07/11/20 Telemedicine Connor Yuan APN, YUDI [facility] [place] 06/09/20 Office Visit Oswaldo Serrano, MD [facility] [place] 05/29/20 Telemedicine Oswaldo Serrano, MD [facility] 04/07/20 Office Visit Connor Yuan APN, YUDI [facility] 03/18/20 Telemedicine Oswaldo Serrano, MD [facility] [place] Showing recent visits within past 460 days with a meds authorizing provider and meeting all other requirements Future Appointments No visits were found meeting these conditions. Showing future appointments within next 90 days with a meds authorizing provider and meeting all other requirements CLE REFINISHER documented in this encounter Plan of Treatment Upcoming Encounters Date Type Department Care Team (Late st Contact Info) Description 10/08/2024 2:15 PM VEHICLE REFINISHER Office Visit [facility] UROLOGY #2 [place] [address] Orlin Urbina APRN, YUDI #2 [place] [address] 10/18/2024 2:15 PM VEHICLE REFINISHER [facility] 1 [place] [address] Oswaldo Serrano MD #[address] [address] Discharge Disposition: Discharged to home or Selfcare 11/29/2024 2:30 PM VEHICLE REFINISHER Office Visit [facility] Family Medicine [facility] #2 [place] [address] Oswaldo Serrano MD #[address] [address] 11/30/2024 3:00 PM VEHICLE REFINISHER Office Visit [facility] Endocrinology [facility] #2 [place] [address] Ok Jorge MD #[address] [address] documented as of this encounter Visit Diagnoses Not on filedocumented in this encounter Additional Health Concerns Infection Onset Date Last Indicated Resolved Time COVID - 19 07/28/2021 07/29/2021 08/17/2021 12:1 6 AM VEHICLE REFINISHER Assessment Noted Time PHQ-9 Depression Total Score: 2 07/18/20 4:26 PM CDT documented as of this encounter Care Teams Chemistry Lab Instructor Relationship Specialty Start Date End Date Oswaldo Serrano MD #[address] [address] PCP - General Family Medicine 05/19/17 Angel Crowe DPM #[address] [address] Consulting Physician Podiatry 06/16/17 Mora Fritz Behavioral Health Navigator 06/15/18 Ok Jorge MD #[address] [address] Consulting Physician Endocrinology 05/12/22 Orlin Urbina APRN, FABRIC PATTERN GRADER #2 [place] [address] Nurse Practitioner Advanced Practice Nurse 11/09/22 documented as of this encounter
--- OUTSIDE RECORDS SUMMARY | 2024-10-07 00:27 | XMS_ITS | Encounter Summary ---
Author Organization [facility] Address [address] [place] [address] Phone Care Team Providers Care Tool Grinder Operator Name Role Phone Oswaldo Serrano MD Primary Care Provider Angel Crowe DPM Unavailable Mora Fritz Unavailable Unavailable Reason for Visit * Reason Comments Medication Refill Encounter Details Date Type Department Care Team (Late st Contact Info) Description 12/10/2020 Refill [facility] - Family Medicine [facility] #2 [place] [address] Oswaldo Serrano MD #[address] [address] Medication Refill Social History Tobacco Use Types [...] have Coronavirus / COVID-19? No / Unsure 12/08/2020 2:50 PM RESISTOR INSPECTOR documented as of this encounter Miscellaneous Notes * Telephone Encounter - Mica Morales RN - 12/10/2020 3:30 PM CST Medication(s) [facility] Medication Refill Standing Order for Pediatricand Adult Patients. Requested Prescriptions Pending Prescriptions Disp Refills ??? levothyroxine (SYNTHROID) 50 MCG Tablet [Pharmacy Med Name: LEVOTHYROXIN 50 MCG*TAB LUPI] 90 Tablet 3 Sig: TAKE ONE TABLET BY MOUTH EVERY MORNING Endocrinology: Hypothyroid Agents Passed - 12/10/2020 11:37 AM Passed - Valid encounter within last 12 months Past Office Visits Recent Outpatient Visits 2 days ago Subacute maxillary sinusitis [facility] - Oswaldo Moreno MD 1 month ago Chest congestion [facility] - Connor Hutchinson APN, YUDI 2 months ago [facility] 2 months ago Chronic joint pain [facility] Family [facility] - Oswaldo Moreno MD 4 months ago Diabetic polyneuropathy associated with type 2 diabetes mellitus (HCC) [facility] - Connor Hutchinson APN, YUDI Upcoming Appointments Future Appointments In 5 days Ok Jorge MD [facility] TYPING OFFICE WORKER - Recent and Past Visits Recent Visits Date Type Provider Dept 12/08/20 Telemedicine [facility] 11/07/20 Telemedicine Connor Yuan APN, YUDI [facility] [place] 10/09/20 Office Visit Oswaldo Serrano, MD [facility] 09/16/20 Telemedicine Oswaldo Serrano, MD [facility] [place] 07/18/20 Office Visit Connor Yuan APN, YUDI [facility] 07/11/20 Telemedicine Connor Yuan APN, YUDI [facility] [place] 06/09/20 Office Visit Oswaldo Serrano, MD [facility] 05/29/20 Telemedicine Oswaldo Serrano, MD [facility] 04/07/20 Office Visit Connor Yuan APN, YUDI [facility] 03/18/20 Telemedicine Oswaldo Serrano, MD [facility] [place] Showing recent visits within past 460 days with a meds authorizing provider and meeting all other requirements Future Appointments No visits were found meeting these conditions. Showing future appointments within next 90 days with a meds authorizing provider and meeting all other requirements Passed - TSH in normal range and within 360 days TSH Date Value Ref Range Status 06/09/2020 3.900 0.270 - 4.200 mIU/L Final STOR INSPECTOR * Telephone Encounter - Mavis Lozoya RN - 12/10/2020 11:36 AM CST Pt needs appt for med request refill. STOR INSPECTOR documented in this encounter Plan of Treatment Upcoming Encounters Date Type Department Care Team (Late st Contact Info) Description 10/08/2024 2:15 PM RESISTOR INSPECTOR Office Visit [facility] #2 [place] [address] Orlin Urbina CHIPPER MACHINE OPERATOR, MANAGER CLINIC #2 [place] [address] 10/18/2024 2:15 PM RESISTOR INSPECTOR Appointment [facility] Mammography 1 [facility] [place] [address] Oswaldo Serrano MD #[address] [place] [address] Discharge Disposition: Discharged to home or Selfcare 11/29/2024 2:30 PM RESISTOR INSPECTOR Office Visit [facility] - Family Medicine [facility] #2 [place] [address] Oswaldo Serrano MD #[address] [address] 11/30/2024 3:00 PM RESISTOR INSPECTOR Office Visit [facility] - Endocrinology [facility] #2 [place] [address] Ok Jorge MD #[address] [place] [address] documented as of this encounter Visit Diagnoses Not on filedocumented in this encounter Additional Health Concerns Assessment Noted Time PHQ-9 Depression Total Score: 2 07/18/20 20 4:26 PM CDT documented as of this encounter Care Teams Tool Grinder Operator Relationship Specialty Start Date End Date Oswaldo Serrano MD #[address] [address] PCP - General Family Medicine 05/19/17 Angel Crowe DPM #[address] [address] Consulting Physician Podiatry 06/16/17 Mora Fritz [place] Behavioral Health Navigator 06/15/18 documented as of this encounter
--- OUTSIDE RECORDS SUMMARY | 2024-10-07 00:27 | XMS_ITS | Encounter Summary ---
Author Organization [facility] Address [address] [place] [address] Phone Care Team Providers Care Automobile Locator Name Role Phone Oswaldo Serrano MD Primary Care Provider Angel Crowe DPM Unavailable Mora Fritz Unavailable Unavailable Reason for Visit * Reason Onset Date Comments Urinary Frequency 01/13/2021 Encounter Details Date Type Department Care Team (Late st Contact Info) Description 01/13/2021 Nurse Triage [facility] [address] [place] [address] Oswaldo Serrano MD #[address] [address] Urinary Frequency Social History Tobacco [...] have Coronavirus / COVID-19? No / Unsure 12/26/2020 4:22 PM CDT documented as of this encounter Miscellaneous Notes * Telephone Encounter - Coleen Anand RN - 01/13/2021 2:34 PM CDT Spoke with the patients sister and the patient was discharged from the ER around 2:30 this am. Appointment will need to be rescheduled. Spoke with Connor Yuan ANP he says it will be ok to see the patient tomorrow 01/14/21 if family is wanting to get her tested today they can take her to urgent care. Patients sister is aware and verbalizes understanding. * Telephone Encounter - Connor Yuan APN, CNP - 01/13/2021 2:23 PM CDT Cool, thank you * Telephone Encounter - Coleen Anand RN - 01/13/2021 2:21 PM CDT Sister said she was in the ER yesterday * Telephone Encounter - Connor Yuan APN, YUDI - 01/13/2021 2:07 PM CDT She wasn't in the ER today was she? * Telephone Encounter - Coleen Anand RN - 01/13/2021 1:56 PM CDT SITUATION: Foul odor to urine and frequency BACKGROUND: Patients sister calling states the patient has had a foul odor to her urine for about amonth and now she is having urinary frequency and burning for the past week half. States she has had some mood changes recently also. [facility] states her heart was racing and she was anxious. They did not check her urine. Sister is wanting to get her tested for a UTI . Appointment scheduled for today ASSESSMENT: Symptom Description / Location: see above Pain (0-10): burning with urination Temp: not reported Treatment / Response: none reported RECOMMENDATION: See care advice and disposition for Guideline First positive answer recorded, all responses to prior questions were negative. If symptoms increase, change or if new symptoms develop, call your HCP or call back. Recommendations were based on caller information and is not a diagnosis. Verified and reviewed all triage information with caller. Reason for Disposition ??? Bad or foul-smelling urine Protocols used: URINARY [id number] documented in this encounter Plan of Treatment Upcoming Encounters Date Type Department Care Team (Late st Contact Info) Description 10/08/2024 2:15 PM CEO AND CO FOUNDER Office Visit [facility] UROLOGY #2 [place] [address] Orlin Urbina APRN, PREDATORY ANIMAL HUNTER #2 [place] [address] 10/18/2024 2:15 PM CEO AND CO FOUNDER Appointment [facility] Mammography 1 [place] [address] Oswaldo Serrano MD #[address] [address] Discharge Disposition: Discharged to home or Selfcare 11/29/2024 2:30 PM CEO AND CO FOUNDER Office Visit [facility] - Family Medicine - [place] #2 [place] [address] Oswaldo Serrano MD #[address] [address] 11/30/2024 3:00 PM CEO AND CO FOUNDER Office Visit [facility] - Endocrinology - [place] #2 [place] [address] Ok Jorge MD #[address] [address] documented as of this encounter Visit Diagnoses Not on filedocumented in this encounter Additional Health Concerns Assessment Noted Time PHQ-9 Depression Total Score: 2 07/18/20 20 4:26 PM CDT documented as of this encounter Care Teams Automobile Locator Relationship Specialty Start Date End Date Oswaldo Serrano MD #[address] [address] PCP - General Family Medicine 05/19/17 Angel Crowe DPM #[address] [address] Consulting Physician Podiatry 06/16/17 Mora Fritz Behavioral Health Navigator 06/15/18 documented as of this encounter
--- OUTSIDE RECORDS SUMMARY | 2024-10-07 00:27 | XMS_ITS | Encounter Summary ---
Author Organization [facility] Address [address] [place] [address] Phone Care Team Providers Care Retention Manager Name Role Phone Oswaldo Serrano MD Primary Care Provider [phone] Angel Crowe DPM Unavailable Mora Fritz Unavailable Unavailable Reason for Visit * Reason Onset Date Comments Care Management 11/29/2020 Encounter Details Date Type Department Care Team (Late st Contact Info) Description 11/29/2020 Telephone [facility] - [place] [facility] [facility] [place] [address] Ok Jorge MD [address] [address] Care Management Social History Tobacco Use Types [...] COVID-19? No / Unsure 12/08/2020 2:50 PM FIRE ASSISTANT documented as of this encounter Miscellaneous Notes * Telephone Encounter - Lucila Panda CMA - 12/10/2020 2:49 PM CST AVS printed and mailed to patient ASSISTANT * Telephone Encounter - Ok Jorge MD - 11/29/2020 12:44 AM CST Please send a copy of AVS to her home address. ASSISTANT documented in this encounter Plan of Treatment Upcoming Encounters Date Type Department Care Team (Late st Contact Info) Description 10/08/2024 2:15 PM FIRE ASSISTANT Office Visit [facility] UR[facility]Y #2 [place] [address] Orlin Urbina, FLAME ANNEALING MACHINE SETTER, STRING STUDIES DIRECTOR #2 [place] [address] 10/18/2024 2:15 PM FIRE ASSISTANT Appointment [facility] Mammography 1 [place] [address] Oswaldo Serrano MD #[address] [address] Discharge Disposition: Discharged to home or Selfcare 11/29/2024 2:30 PM FIRE ASSISTANT Office Visit [facility] - Family Medicine [facility] #2 [place] [address] Oswaldo Serrano MD #[address] [address] 11/30/2024 3:00 PM FIRE ASSISTANT Office Visit [facility] Endocrinology [facility] #2 [place] [address] Ok Jorge MD #[address] [address] documented as of this encounter Visit Diagnoses Not on filedocumented in this encounter Additional Health Concerns Assessment Noted Time PHQ-9 Depression Total Score: 2 07/18/20 20 4:26 PM CDT documented as of this encounter Care Teams Retention Manager Relationship Specialty Start Date End Date Oswaldo Serrano MD #[address] [address] PCP - General Family Medicine 05/19/17 Angel Crowe DPM #[address] [address] Consulting Physician Podiatry 06/16/17 Mora Fritz Behavioral Health Navigator 06/15/18 documented as of this encounter
--- OUTSIDE RECORDS SUMMARY | 2024-10-07 00:27 | XMS_ITS | Encounter Summary ---
Author Organization [employer] Care Team Providers Care Insurance Law Specialist Name Role Phone Oswaldo Serrano MD Primary Care Provider [phone] Angel Crowe DPM Unavailable [phone] Mora Fritz Unavailable Unavailable Encounter Details Date Type Department Care Team (Latest Contact Info) Description 2020 Travel Social History Tobacco Use Types Packs/Day [...] have Coronavirus / COVID-19? No / Unsure 2020 11:28 AM HR RECRUITER documented as of this encounter Plan of Treatment Upcoming Encounters Date Type Department Care Team (Late st Contact Info) Description 10/08/2024 2:15 PM HR RECRUITER Office Visit [facility] #2 [place] [address] Orlin Urbina, ALARM TECHNICIAN, PROPERTY MAINTENANCE SUPERVISOR #2 [place] [address] 10/18/2024 2:15 PM HR RECRUITER [facility] 1 [place] [address] Oswaldo Serrano MD #2 [facility] [address] [place] [address] Discharge Disposition: Discharged to home or Selfcare 11/29/2024 2:30 PM HR RECRUITER [facility] - [facility] - [place] #2 [place] [address] Oswaldo Serrano MD #2 [facility] [address] [place] [address] 11/30/2024 3:00 PM HR RECRUITER Office Visit [facility] - Endocrinology - [place] #2 [place] [address] Ok Jorge MD #2 [facility] [address] [place] [address] documented as of this encounter Visit Diagnoses Not on filedocumented in this encounter Additional Health Concerns Assessment Noted Time PHQ-9 Depression Total Score: 2 07/18/20 20 4:26 PM CDT documented as of this encounter Care Teams Insurance Law Specialist Relationship Specialty Start Date End Date Oswaldo Serrano MD #[address] [address] PCP - General Family Medicine 05/19/17 Angel Crowe DPM #[address] [address] Consulting Physician Podiatry 06/16/17 Mora Fritz Behavioral Health Navigator 06/15/18 documented as of this encounter
--- OUTSIDE RECORDS SUMMARY | 2024-10-07 00:27 | XMS_ITS | Encounter Summary ---
Author Organization [facility] Address [address] [place] [address] Phone Care Team Providers Care Stringing Machine Tender Name Role Phone Oswaldo Serrano MD Primary Care Provider Angel Crowe DPM Unavailable Mora Fritz Unavailable Unavailable Encounter Details Date Type Department Care Team (Late st Contact Info) Description 12/08/2020 Telephone [facility] - Family Medicine [facility] #2 [place] [address] Oswaldo Serrano MD #[address] [address] Social History Tobacco Use Types Packs/Day Years [...] COVID-19? No / Unsure 12/15/2020 3:47 PM CHEMISTRY LAB INSTRUCTOR documented as of this encounter Miscellaneous Notes * Telephone Encounter - Tina Benitez CMA - 12/16/2020 9:00 AM CST POS on CLOUD message sent to patient. ISTRY LAB INSTRUCTOR * Telephone Encounter - Oswaldo Serrano MD - 12/08/2020 4:34 PM CHEMISTRY LAB INSTRUCTOR Schedule her to see me in 1 month. Thanks! ISTRY LAB INSTRUCTOR documented in this encounter Plan of Treatment Upcoming Encounters Date Type Department Care Team (Late st Contact Info) Description 10/08/2024 2:15 PM CHEMISTRY LAB INSTRUCTOR Office Visit [facility] UROLOGY #2 [place] [address] Orlin Urbina, MANUFACTURING OPERATIONS MANAGER, SYSTEM SAFETY ENGINEER #2 [place] [address] 10/18/2024 2:15 PM CHEMISTRY LAB INSTRUCTOR Appointment [facility] Mammography 1 [place] [address] Oswaldo Serrano MD #[address] [address] Discharge Disposition: Discharged to home or Selfcare 11/29/2024 2:30 PM CHEMISTRY LAB INSTRUCTOR [facility] - Family Medicine - [place] #2 [place] [address] Oswaldo Serrano MD #2 [facility] [address] [place] [address] 11/30/2024 3:00 PM CHEMISTRY LAB INSTRUCTOR Office Visit [facility] - Endocrinology - [place] #2 [place] [address] Ok Jorge MD #[address] [address] documented as of this encounter Visit Diagnoses Not on filedocumented in this encounter Additional Health Concerns Assessment Noted Time PHQ-9 Depression Total Score: 2 07/18/20 20 4:26 PM CDT documented as of this encounter Care Teams Stringing Machine Tender Relationship Specialty Start Date End Date Oswaldo Serrano MD #[address] [address] PCP - General Family Medicine 05/19/17 Angel Crowe DPM #[address] [address] Consulting Physician Podiatry 06/16/17 Mora Fritz Behavioral Health Navigator 06/15/18 documented as of this encounter
--- OUTSIDE RECORDS SUMMARY | 2024-10-07 00:27 | XMS_ITS | Encounter Summary ---
Author Organization [employer] Care Team Providers Care Rn Perioperative Name Role Phone Oswaldo Serrano MD Primary Care Provider [phone] Angel Crowe DPM Unavailable [phone] Mora Fritz Unavailable Unavailable Encounter Details Date Type Department Care Team (Latest Contact Info) Description 02/02/2021 Travel Social History Tobacco Use Types Packs/Day [...] have Coronavirus / COVID-19? No / Unsure 02/02/2021 10:45 AM CDT documented as of this encounter Plan of Treatment Upcoming Encounters Date Type Department Care Team (Late st Contact Info) Description 10/08/2024 2:15 PM GIZZARD SKIN REMOVER Office Visit [facility] UROLOGY #2 [place] [address] Orlin Urbina, PARKING ENFORCEMENT OFFICER, ASSISTANT QUALITY MANAGER #2 [place] [address] 10/18/2024 2:15 PM GIZZARD SKIN REMOVER [facility] 1 [place] [address] Oswaldo Serrano MD #2 [facility] [address] [place] [address] Discharge Disposition: Discharged to home or Selfcare 11/29/2024 2:30 PM GIZZARD SKIN REMOVER [facility] - Family Medicine - [place] #2 [place] [address] Oswaldo Serrano MD #2 [facility] [address] [place] [address] 11/30/2024 3:00 PM GIZZARD SKIN REMOVER Office Visit [facility] - Endocrinology - [place] #2 [place] [address] Ok Jorge MD #2 [facility] [address] [place] [address] documented as of this encounter Visit Diagnoses Not on filedocumented in this encounter Additional Health Concerns Assessment Noted Time PHQ-9 Depression Total Score: 2 07/18/20 4:26 PM CDT documented as of this encounter Care Teams Rn Perioperative Relationship Specialty Start Date End Date Oswaldo Serrano MD #[address] [address] PCP - General Family Medicine 05/19/17 Angel Crowe DPM #[address] [address] Consulting Physician Podiatry 06/16/17 Mora Fritz Behavioral Health Navigator 06/15/18 documented as of this encounter
--- OUTSIDE RECORDS SUMMARY | 2024-10-07 00:27 | XMS_ITS | Encounter Summary ---
Author Organization [facility] Address [address] [place] [address] Phone Care Team Providers Care Manifest Clerk Name Role Phone Oswaldo Serrano MD Primary Care Provider [phone] Angel Crowe DPM Unavailable Mora Fritz Unavailable Unavailable Reason for Visit * Reason Comments Cough Ongoing cough. Had a negative flu and COVID test on 02/14/2021 Wheezing Intermittent wheezin g. Sore Throat Sore throat since We dn02/11/2021 Ear Pain Left ear pain Encounter Details Date Type Department Care Team (Late st Contact Info) Description 02/16/2021 3:30 PM CDT [facility] Visit [facility] Family Medicine [facility] #2 [place] [address] Oswaldo Serrano MD #[address] [address] B12 deficiency (Primary Dx); Elevated creatine kinase; Elevated LFTs; URI, acute Discharge Disposition: Discharged to home [...] Sign Reading Time Taken Comments Blood Pressure 134/68 02/16/2021 3:42 PM CDT Pulse 69 02/16/2021 3:42 PM CDT Temperature 35.9 ??C (96.7 ??F) 02/16/2021 3:42 PM CD T Respiratory Rate 18 02/16/2021 3:42 PM CDT Oxygen Saturation 98% 02/16/2021 3:42 PM CDT Inhaled Oxygen Concentration - - Weight 136.9 kg (301 lb 11.2 oz) 02/16/2021 3:42 PM CDT Height 182.9 cm (6') 02/16/2021 3:42 PM CDT Body Mass Index 40.92 02/16/2021 3:42 PM CDT documented in this encounter Patient Instructions * Patient Instructions* Oswaldo Serrano MD - 02/16/2021 3:30 PM CDT 1. See Dr. Jorge & all other doctors as scheduled. 2. Please complete survey if you receive one. 3. Take B12 500 mcg daily. 4. Do labs today & again in 3 months (nonfasting). 5. Take Z-pack & Prednisone. documented in this encounter Progress Notes * PandaTanisha Kannan - 02/16/2021 3:30 PM CDT Loretta Penn, 60 y.o., female is here for Cough (Ongoing cough. Had a negative flu and COVID test on 02/14/2021), Wheezing (Intermittent wheezing. ), Sore Throat (Sore throat since Tuesday02/11/2021), and Ear Pain (Left ear pain) Medication Refills: Patient reports/denies need for medication refills. Orders Pended: no Requested Prescriptions No prescriptions requested or ordered in this encounter Home Medications Medication Sig Start Date End Date Taking? Authorizing Provider albuterol 108 (90 Base) MCG/ACT Aerosol Solution 02/14/21 Yes Nica Muniz MD ASPIR-LOW 81 MG Tablet Delayed Response 05/24/17 ProviderNica MD Blood Glucose Monitoring Suppl Device Test blood glucose 4 times daily. E11.9, insulin dependent 12/19/19 Yes Ok Jorge MD Blood Pressure Monitoring (Blood Pressure Cuff) [facility] Dispense battery-powered arm cuff (Dx: I10) 12/19/20 [...] TAKE ONE CAPSULE BY MOUTH TWICE DAILY 01/22/21 Yes Oswaldo Serrano MD ergocalciferol (VITAMIN D) 59101 UNIT Capsule Take 1 Capsule by mouth once a week. 12/13/20 Yes Connor Yuan APN, CNP escitalopram (LEXAPRO) 10 MG Tablet TAKE ONE TABLET BY MOUTH DAILY 09/18/20 Yes Oswaldo Serrano MD fluconazole (DIFLUCAN) 150 MG Tablet TAKE 1 TABLET BY MOUTH 1 TIME FOR 1 DOSE 10/17/20 Yes Nica Muniz MD fluticasone (FLONASE) 50 MCG/ACT [...] Tablet Take 1 Tab by mouth daily. Patient not taking: Reported on 01/14/2021 11/12/20 Connor Yuan APN, CNP Glucose Blood Strip Test blood glucose 4x daily. E11.9, insulin dependent 03/26/20 Yes Ok Jorge MD insulin lispro (HumaLOG) [...] ONE TABLET BY MOUTH DAILY 10/06/20 Yes Carosn Michel MD potassium chloride SA (KLORCON M) 20 MEQ Tablet Controlled Release Take 1 Tab by mouth daily. 11/12/20 Yes Connor Yuan APN, HOURLY SHIFT MANAGER rivaroxaban (Xarelto) 20 MG Tablet Take 20 [...] have been addressed with the patient today: Pneumonia, Colonoscopy, A1C, Mammogram and Pap * Oswaldo Serrano MD - 02/16/2021 3:30 PM CDT CHIEF COMPLAINT: URI. SUBJECTIVE: Patient is here today complaining of wheezing and coughing, has been going on for a couple of days. She went to Urgent Care on Tuesday. She tested negative for COVID and flu. They did a complete respiratory panel on her and the results are still pending from that. She was not given any antibiotics upon discharge from Urgent Care. She recently had labs done too. Her B12 was low normal at 355. She is currently not on any B12. Her creatine kinase went up to 210 and her liver enzymes showed elevated alkaline phosphatase of 130, previously was 143 so that is actually improved. I have reviewed all the systems. They are negative except as mentioned in HPI. OBJECTIVE: Vital Signs: Blood pressure 134/68, pulse 69, temperature 96.7, weight 301. General: Patient is talkative, cooperative, alert, and appropriately dressed. Chest: Clear to auscultation bilaterally. No wheezing. Heart: S1, S2. No murmurs. Neck: No carotid bruits auscultated. ASSESSMENT/PLAN: 1. Wheezing/cough/URI. I gave her prednisone 20 mg b.i.d. and a Z-Esau. 2. B12 deficiency. I will start her on 500 mcg daily and check a level in 3 months. 3. Elevated creatine kinase. Will recheck this today. 4. Elevated LFTs. I will recheck this today. It is probably due to fatty liver. 5. This patient is to follow up with me as scheduled next week. IJN: [id number] documented in this encounter Plan of Treatment Upcoming Encounters Date Type Department Care Team (Late st Contact Info) Description 10/08/2024 2:15 PM BUILDING OPERATOR Office Visit [facility] #2 [place] [address] Orlin Urbina APRN, HOURLY SHIFT MANAGER #2 [place] [address] 10/18/2024 2:15 PM BUILDING OPERATOR [facility] 1 [place] [address] Oswaldo Serrano MD #[address] [address] Discharge Disposition: Discharged to home or Selfcare 11/29/2024 2:30 PM BUILDING OPERATOR [facility] Medicine [facility] #2 [place] [address] Oswaldo Serrano MD #[address] [address] 11/30/2024 3:00 PM BUILDING OPERATOR Office Visit [facility] - [facility] - [place] #2 [place] [address] Ok Jorge MD #[address] [address] documented as of this encounter Visit Diagnoses Diagnosis B12 deficiency- Primary Other B-complex deficiencies Elevated creatine kinase Other nonspecific abnormal serum enzyme levels Elevated LFTs Other abnormal blood chemistry URI, acute Acute upper respiratory infections of unspecified site documented in this encounter Additional Health Concerns Assessment Noted Time PHQ-9 Depression Total Score: 2 07/18/20 20 4:26 PM CDT documented as of this encounter Care Teams Manifest Clerk Relationship Specialty Start Date End Date Oswaldo Serrano MD #[address] [address] PCP - General Family Medicine 05/19/17 Angel Crowe DPM #[address] [address] Consulting Physician Podiatry 06/16/17 Mora Fritz Behavioral Health Navigator 06/15/18 documented as of this encounter
--- OUTSIDE RECORDS SUMMARY | 2024-10-07 00:27 | XMS_ITS | Encounter Summary ---
Author Organization [facility] Address [address] [place] [address] Phone Care Team Providers Care Process Steward Name Role Phone Oswaldo Serrano MD Primary Care Provider [phone] Angel Crowe DPM Unavailable [phone] Mora Fritz Unavailable Unavailable Reason for Referral * Radiology Services (Routine) - Closed Specialty Diagnoses / Procedures Referred By Praful ferro Referred To Contact Radiology Diagnoses Chest congestion Procedures XR CHEST 2 VIEWS Oswaldo Serrano MD #[address] [address] Phone: tel: fax: Referral ID Status Reason Start Date Expiration Date Visits Re quested Visits Authorized [id number] Closed 12/23/2020 1 1 Reason for Visit * Reason Onset Date Comments Sinus Infection 12/23/2020 Chest Congestion 12/23/2020 Encounter Details Date Type Department Care Team (Late st Contact Info) Description 12/23/2020 Nurse Triage [facility] [address] [place] [address] Oswaldo Serrano MD [address] [address] Sinus Infection; Chest Congestion Social History Tobacco Use Types Packs/Day Years [...] COVID-19? No / Unsure 2020 11:28 AM SCRAP CARRIER documented as of this encounter Miscellaneous Notes * Telephone Encounter - Sylvia Jimenez RN - 12/23/2020 4:54 PM CDT Advised patients sister of the order for the CXR, she v/u and will get it done soon. And advised her to call back if patients symptoms worsen she v/u. * Telephone Encounter - Sahra Denton RN - 12/23/2020 2:59 PM CDT I attempted to contact pt, but Voice Mail full or No Voice Mail On Dilia's tel # Left message pt to call back On home phone, although it gave another woman's identifying name on voice message Left message pt's sister,Yoanna Cook to call back * Telephone Encounter - Oswaldo Serrano MD - 12/23/2020 10:52 AM CDT Let her know I have ordered a chest x-ray. Thanks! * Telephone Encounter - Coleen Anand RN - 12/23/2020 10:23 AM CDT Reason for Disposition ??? Earache Protocols used: SINUS PAIN OR [id number] SITUATION: Sinus congestion pain and ear pain and chest congestion. BACKGROUND: Symptoms have been ongoing for about a month. She has been prescribed abt in the past but it does not seem to go away. Sister is concerned because the patient is going to get her 1st covid vaccine today. She denies fever has a light cough oxygen levels have been around 94%. Sister is asking if PCP will order a chest xray to ensure the patient does not have pneumonia again? ASSESSMENT: Symptom Description / Location: see above Pain (0-10): Temp: normal Treatment / Response: see above RECOMMENDATION: See care advice and disposition for Guideline First positive answer recorded, all responses to prior questions were negative. If symptoms increase, change or if new symptoms develop, call your HCP or call back. Recommendations were based on caller information and is not a diagnosis. Verified and reviewed all triage information with caller. documented in this encounter Plan of Treatment Upcoming Encounters Date Type Department Care Team (Late st Contact Info) Description 10/08/2024 2:15 PM SCRAP CARRIER Office Visit [facility] #2 [place] [address] Orlin Urbina, SELF CONTAINED BEHAVIOR UNIT TEACHER, [employer] #2 [place] [address] 10/18/2024 2:15 PM SCRAP CARRIER [facility] 1 [place] [address] Oswaldo Serrano MD #2 [facility] [address] [place] [address] Discharge Disposition: Discharged to home or Selfcare 11/29/2024 2:30 PM SCRAP CARRIER Office Visit [facility] - [place] #2 [place] [address] Oswaldo Serrano MD #2 [facility] [address] [place] [address] 11/30/2024 3:00 PM SCRAP CARRIER Office Visit [facility] - Endocrinology - [place] #2 [place] [address] Ok Jorge MD #[address] [place] [address] documented as of this encounter Results * XR CHEST 2 VIEWS (12/26/2020 4:54 PM CDT) Anatomical Region Laterality Modality Chest N/A Digital Radiogra phy 12/29/2020 8:06 AM CDT Impressions 12/29/2020 8:09 AM CDT IMPRESSION: ??1. ??Stable mild cardiomegaly with minimal pulmonary edema. 2. ??Stable prominence of the main pulmonary artery which may indicate underlying pulmonary hypertension. Narrative 12/29/2020 8:09 AM CDT EXAM DESCRIPTION: ?? XR CHEST 2 VIEWS REASON FOR STUDY: ?? Chest pain in the mid chest for 1 week with shortness of breath and cough TECHNIQUE: ?? Frontal and lateral radiographic views of the chest acquired. COMPARISON: ?? 11/18/2020 FINDINGS: ??LUNGS/PLEURA: ??No focal consolidation or pneumothorax. No pleural effusion. ??Mild interlobular septal line thickening is seen in the right lung base. HEART/MEDIASTINUM: ??Mild cardiomegaly is stable. ??Enlargement of the main pulmonary artery again noted. HARDWARE/LINES/TUBES: ??Left chest wall pacemaker/defibrillator with atrial ventricular leads in stable positions. ??Unchanged embolized lead fragment again noted in a right lower lobe pulmonary artery. BONES: ??No acute findings. OTHER: ??No other significant finding. THIS IS AN ELECTRONICALLY VERIFIED FINAL REPORT 12/29/2020 8:06 AM - Electronically signed by Tom Cabezas ML: ML D: ??12/29/2020 8:06 AM T: ??12/29/2020 8:06 AM Report ID: [id number] Reading Location: ??[id number] Procedure Note Tom Cabezas MD - 12/29/2020 EXAM DESCRIPTION: XR CHEST 2 VIEWS REASON FOR STUDY: Chest pain in the mid chest for 1 week with shortness of breath and cough TECHNIQUE: Frontal and lateral radiographic views of the chest acquired. COMPARISON: 11/18/2020 FINDINGS: LUNGS/PLEURA: No focal consolidation or pneumothorax. No pleural effusion. Mild interlobular septal line thickening is seen in the right lung base. HEART/MEDIASTINUM: Mild cardiomegaly is stable. Enlargement of the main pulmonary artery again noted. HARDWARE/LINES/TUBES: Left chest wall pacemaker/defibrillator with atrial ventricular leads in stable positions. Unchanged embolized lead fragment again noted in a right lower lobe pulmonary artery. BONES: No acute findings. OTHER: No other significant finding. THIS IS AN ELECTRONICALLY VERIFIED FINAL REPORT 12/29/2020 8:06 AM - Electronically signed by Tom Cabezas ML: ML Report ID: [id number] Reading Location: [id number] IMPRESSION: 1. Stable mild cardiomegaly with minimal pulmonary edema. 2. Stable prominence of the main pulmonary artery which may indicate underlying pulmonary hypertension. Oswaldo Serrano MD IMG DIAGNOSTIC ORDERABLES F inal Result documented in this encounter Visit Diagnoses Diagnosis Chest congestion- Primary Other symptoms involving respiratory system and chest Chest congestion Other symptoms involving respiratory system and chest documented in this encounter Additional Health Concerns Assessment Noted Time PHQ-9 Depression Total Score: 2 07/18/20 20 4:26 PM CDT documented as of this encounter Care Teams Process Steward Relationship Specialty Start Date End Date Oswaldo Serrano MD #[address] [address] PCP - General Family Medicine 05/19/17 Angel Crowe DPM #[address] [address] Consulting Physician Podiatry 06/16/17 Mora Fritz Behavioral Health Navigator 06/15/18 documented as of this encounter
--- OUTSIDE RECORDS SUMMARY | 2024-10-07 00:27 | XMS_ITS | Encounter Summary ---
Author Organization [facility] Address [address] [place] [address] Phone Care Team Providers Care Ultrasound Coordinator Name Role Phone Oswaldo Serrano MD Primary Care Provider [phone] Angel Crowe DPM Unavailable [phone] Mora Fritz Unavailable Unavailable Reason for Referral * Radiology Services (Routine) - Closed Specialty Diagnoses / Procedures Referred By Contac t Referred To Contact Radiology Diagnoses Elevated LFTs Procedures US ABDOMEN LIMITED LEVEL 3 THREE ORGAN Oswaldo Serrano MD #[address] [address] Phone: tel: fax: Referral ID Status Reason Start Date Expiration Date Visits Re quested Visits Authorized [id number] Closed 02/15/2021 1 1 Encounter Details Date Type Department Care Team (Late st Contact Info) Description 02/15/2021 Telephone [facility] - Family Medicine [facility] #2 [place] [address] Oswaldo Serrano MD #[address] [address] Social History Tobacco Use Types Packs/Day Years [...] Telephone Encounter - Oswaldo Serrano MD - 02/16/2021 4:59 PM CDT DONE. documented in this encounter Plan of Treatment Upcoming Encounters Date Type Department Care Team (Late st Contact Info) Description 10/08/2024 2:15 PM FIELD SALES MANAGER Office Visit [facility] #2 [place] [address] Orlin Urbina APRN, MACERATOR OPERATOR #2 [place] [address] 10/18/2024 2:15 PM FIELD SALES MANAGER Appointment [facility] M[facility]ography 1 [place] [address] Oswaldo Serrano MD #2 [facility] [address] [place] [address] Discharge Disposition: Discharged to home or Selfcare 11/29/2024 2:30 PM FIELD SALES MANAGER Office Visit [facility] - [place] #2 [place] [address] Oswaldo Serrano MD #2 [facility] [address] [place] [address] 11/30/2024 3:00 PM FIELD SALES MANAGER Office Visit [facility] - Endocrinology - [place] #2 [place] [address] Ok Jorge MD #[address] [address] documented as of this encounter Results * (ABNORMAL) VITAMIN B12 (07/24/2021 4:09 PM CDT) Pathologist [facility] VITAMIN B12 956(H) 243 - 894 pg/mL 07/24/2021 5:57 PM CDT [facility] Blood Venipuncture / Unknown 07/24/2021 4:09 PM CDT 07/24/2021 5:16 PM CDT us Oswaldo Serrano MD CHEMISTRY ORDERABLES Final Result [facility] #1 [place] [address] * US LIVER, PANCREAS AND GALLBLADDER (03/06/2021 [...] signed by Joe Adair M.D. DL: DL D: ??03/06/2021 3:57 PM T: ??03/06/2021 3:57 PM Report ID: [id number] Reading Location: ??[id number] Procedure Note Joe Adair MD - 03/06/2021 [...] Joe Adair M.D. DL: DL Report ID: [id number] Reading Location: [id number] IMPRESSION: No hepatic mass or biliary ductal dilatation. Cholecystectomy. Oswaldo Serrano MD IMG US ORDERABLES Final Res ult * CREATINE KINASE (CK) TOTAL (02/27/2021 11:19 AM CDT) CK (CPK) 153 26 - 192 U/L 02/27/2021 1:36 PM CDT [facility] Blood Venipuncture / Unknown 02/27/2021 11:19 AM CDT 02/27/2021 11:19 AM CDT Oswaldo Serrano MD HEMATOLOGY ORDERABLES Final Result [facility] #1 [place] [address] * (ABNORMAL) HEPATIC FUNCTION PANEL (02/27/2021 11:19 AM CDT) T BILI 0.4 <=1.2 mg/dL 02/27/2021 1:36 PM CDT [facility] BILIRUBIN,DIRECT <0.3 <=0.3 mg/dL 02/27/2021 1:36 PM CDT [facility] ALKALINE PHOSPHATASE 168(H) 35 - 105 U/L 02/27/2021 1:36 PM CDT [facility] SGOT (AST) 15 <=32 U/L 02/27/2021 1:36 PM CDT [facility] SGPT (ALT) 22 <=41 U/L 02/27/2021 1:36 PM CDT [facility] TOTAL PROTEIN 7.4 6.0 - 8.3 g/dL 02/27/2021 1:36 PM CDT [facility] ALBUMIN 3.9 3.5 - 5.2 g/dL 02/27/2021 1:36 PM CDT [facility] Comment: The colormetric methods used for the determination of Albumin may lead to falsely elevated test results in patients suffering from renal failure or insufficiency due to interference with other proteins. Blood Venipuncture / Unknown 02/27/2021 11:19 AM CDT 02/27/2021 11:19 AM CDT Oswaldo Serrano MD CHEMISTRY ORDERABLES Final Result [facility] #1 [place] [address] documented in this encounter Visit Diagnoses Diagnosis Elevated LFTs- Primary Other abnormal blood chemistry Elevated creatine kinase Other nonspecific abnormal serum enzyme levels B12 deficiency Other B-complex deficiencies Elevated LFTs Other abnormal blood chemistry documented in this encounter Additional Health Concerns Assessment Noted Time PHQ-9 Depression Total Score: 2 07/18/20 20 4:26 PM CDT documented as of this encounter Care Teams Ultrasound Coordinator Relationship Specialty Start Date End Date Oswaldo Serrano MD #[address] [address] PCP - General Family Medicine 05/19/17 Angel Crowe DPM #[address] [address] Consulting Physician Podiatry 06/16/17 Mora Fritz Behavioral Health Navigator 06/15/18 documented as of this encounter
--- OUTSIDE RECORDS SUMMARY | 2024-10-07 00:27 | XMS_ITS | Encounter Summary ---
Author Organization [facility] Address [address] [place] [address] Phone Care Team Providers Care Mechanical Integrity Specialist Name Role Phone Oswaldo Serrano MD Primary Care Provider Angel Crowe DPM Unavailable [phone] Mora Fritz Unavailable Unavailable Reason for Visit * Reason Onset Date Comments Medication Refill 02/13/2021 Encounter Details Date Type Department Care Team (Late st Contact Info) Description 02/13/2021 Refill [facility] - [place] #2 [place] [address] Ok Jorge MD #[address] [address] Medication Refill Social History Tobacco [...] Telephone Encounter - Ok Jorge MD - 02/13/2021 1:03 PM CDT Rx sent * Telephone Encounter - Ynes Zuniga RN - 02/13/2021 11:19 AM CDT Requested Prescriptions Pending Prescriptions Disp Refills ??? Lantus 100 UNIT/ML Solution 10 mL 2 Sig: by Subcutaneous route every morning. NExt appt: 02/16/21 documented in this encounter Plan of Treatment Upcoming Encounters Date Type Department Care Team (Late st Contact Info) Description 10/08/2024 2:15 PM ALTERNATIVE ENERGY TECHNICIAN Office Visit [facility] #2 [place] [address] Orlin Urbina, HOEING ROW BOSS, WEB PRESS JOGGER #2 [place] [address] 10/18/2024 2:15 PM ALTERNATIVE ENERGY TECHNICIAN Appointment [facility] 1 [place] [address] Oswaldo Serrano MD #[address] [address] Discharge Disposition: Discharged to home or Selfcare 11/29/2024 2:30 PM ALTERNATIVE ENERGY TECHNICIAN Office Visit [facility] - [facility] Medicine [facility] #2 [place] [address] Oswaldo Serrano MD #[address] [address] 11/30/2024 3:00 PM ALTERNATIVE ENERGY TECHNICIAN Office Visit [facility] Endocrinology [facility] #2 [place] [address] Ok Jorge MD #[address] [address] documented as of this encounter Visit Diagnoses Not on filedocumented in this encounter Additional Health Concerns Assessment Noted Time PHQ-9 Depression Total Score: 2 07/18/20 20 4:26 PM CDT documented as of this encounter Care Teams Mechanical Integrity Specialist Relationship Specialty Start Date End Date Oswaldo Serrano MD #[address] [address] PCP - General Family Medicine 05/19/17 Angel Crowe DPM #[address] [address] Consulting Physician Podiatry 06/16/17 Mora Fritz Behavioral Health Navigator 06/15/18 documented as of this encounter
--- OUTSIDE RECORDS SUMMARY | 2024-10-07 00:27 | XMS_ITS | Encounter Summary ---
Author Organization [employer] Care Team Providers Care Access Tech Name Role Phone Oswaldo Serrano MD Primary Care Provider [phone] Angel Crowe DPM Unavailable [phone] Mora Fritz Unavailable Unavailable Encounter Details Date Type Department Care Team (Latest Contact Info) Description 01/14/2021 Travel Social History Tobacco Use Types Packs/Day [...] st Contact Info) Description 10/08/2024 2:15 PM MONOGRAM TECHNICIAN Office Visit [facility] #2 [place] [address] Orlin Urbina, INTERMODAL OWNER OPERATOR TRUCK DRIVER, EXECUTIVE PASTRY CHEF #2 [place] [address] 10/18/2024 2:15 PM MONOGRAM TECHNICIAN [facility]ment [facility] 1 [place] [address] Oswaldo Serrano MD #2 [facility] [address] [place] [address] Discharge Disposition: Discharged to home or Selfcare 11/29/2024 2:30 PM MONOGRAM TECHNICIAN Office [facility] - [place] #2 [place] [address] Oswaldo Serrano MD #2 [facility] [address] [place] [address] 11/30/2024 3:00 PM MONOGRAM TECHNICIAN Office Visit [facility] - [place] #2 [place] [address] Ok Jorge MD #2 [facility] [address] [place] [address] documented as of this encounter Visit Diagnoses Not on filedocumented in this encounter Additional Health Concerns Assessment Noted Time PHQ-9 Depression Total Score: 2 07/18/20 20 4:26 PM CDT documented as of this encounter Care Teams Access Tech Relationship Specialty Start Date End Date Oswaldo Serrano MD #[address] [address] PCP - General Family Medicine 05/19/17 Angel Crowe DPM #[address] [address] Consulting Physician Podiatry 06/16/17 Mora Fritz Behavioral Health Navigator 06/15/18 documented as of this encounter
--- OUTSIDE RECORDS SUMMARY | 2024-10-07 00:27 | XMS_ITS | Encounter Summary ---
Author Organization [facility] Address [address] [facility] [place] [address] Phone Care Team Providers Care Master Automotive Glass Technician Name Role Phone Oswaldo Serrano MD Primary Care Provider [phone] Angel Crowe DPM Unavailable [phone] Mora Fritz Unavailable Unavailable Reason for Visit * Reason Onset Date Comments Sore Throat 02/16/2021 Cough 02/16/2021 Wheezing 02/16/2021 Encounter Details Date Type Department Care Team (Late st Contact Info) Description 02/16/2021 Nurse Triage [facility] [address] [place] [address] Oswaldo Serrano MD #[address] [address] Sore Throat; Cough; Wheezing Social History Tobacco Use Types Packs/Day Years [...] Telephone Encounter - Oswaldo Serrano MD - 02/17/2021 9:38 PM CDT Thanks for the update! Seen in the office yesterday. * Telephone Encounter - Dyana Rivers RN - 02/16/2021 12:20 PM CDT Images from the original note were not included. SITUATION: Dilia on prd calling to report that pt had 100.2f yesterday and had some chest congestion . Pt told Dilia that she was wheezing a little bit last night. BACKGROUND: Sore throat Tuesday. By and Tuesday pt was really not feeling well. Was seenat [facility] on Tuesday. Ordered inhaler but has not bee picked up. ASSESSMENT: Symptom Description / Location: Pt was taken to urgent care over the weekend for covid like symptoms. covid and flu came back negative. Called pt to confirm symptoms. Pt complains of headache on top,sore throat, and wheezing noted last night. Pt reports coughing up some yellow secretions and some more shortness of breath. Pt is talking in complete sentences and no wheezing heard during the call.Pt does complain of chest pain vaguely with coughing. Per Dilia pt has baseline whole body aches/complaints. Pain (0-10): general body aches-moderate pain is baseline Temp: 100.2f yesterday Treatment / Response: Robitussin, mucinex LMP / / : No LMP recorded (lmp unknown). Patient is postmenopausal. RECOMMENDATION: See care advice and disposition for [...] viral test in the last 14 days? Yes - Negative result Do you have any of the following new or worsening symptoms? Fever;Muscle pain;Joint pain;Cough;Diarrhea;Sore throat (winded with activity is baseline but maybe a little worse) Have you traveled internationally in the last month? No Travel History Travel since 01/17/21 No documented travel since 01/17/21 COVID-19 Testing Priority for Loretta Penn: 2 Nurse to triage Reason for Disposition ? ? MILD difficulty breathing (e.g., minimal/no SOB at rest, SOB with walking, pulse < 100) of new onset or worse than normal First positive answer recorded, all responses to prior questions were negative. Protocols used: BREATHING [id number]-B-IE Guideline is to go to office now. Will wait. All Patient Appointments Provider Department Dept Phone 02/16/2021 3:30 PM Oswaldo Serrano [facility] Medical Group - Family Medicine [facility] [phone] 02/27/2021 10:15 AM Oswaldo Serrano [facility] Medical [facility] - Family Medicine [facility] [phone] 03/06/2021 9:30 AM SAHCUSTECH2; [facility]HCUS[facility] [phone] 03/10/2021 3:30 PM Ok Jorge [facility] Medical Group - Endocrinology [facility] [phone] Routing to provider as fyi. documented in this encounter Plan of Treatment Upcoming Encounters Date Type Department Care Team (Late st Contact Info) Description 10/08/2024 2:15 PM SALES DEVELOPMENT SPECIALIST Office Visit [facility] UROLOGY #2 [facility] [place] [phone] Orlin Urbina CRIME SCENE ANALYST, 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 #2 [place] [address] 10/18/2024 2:15 PM SALES DEVELOPMENT SPECIALIST [facility] 1 [place] [phone] Oswaldo Serrano MD #[address] [address] Discharge Disposition: Discharged to home or Selfcare 11/29/2024 2:30 PM SALES DEVELOPMENT SPECIALIST [facility] Visit [facility] - [place] #2 [place] [address] Oswaldo Serrano MD #[address] [address] 11/30/2024 3:00 PM SALES DEVELOPMENT SPECIALIST Office Visit [facility] - End[facility] - [place] #2 [place] [phone] Ok Jorge MD #[address] [address] documented as of this encounter Visit Diagnoses Not on filedocumented in this encounter Additional Health Concerns Assessment Noted Time PHQ-9 Depression Total Score: 2 07/18/20 20 4:26 PM CDT documented as of this encounter Care Teams Master Automotive Glass Technician Relationship Specialty Start Date End Date Oswaldo Serrano MD #[address] [address] PCP - General Family Medicine 05/19/17 Angel Crowe DPM #[address] [address] Consulting Physician Podiatry 06/16/17 Mora Fritz Behavioral Health Navigator 06/15/18 documented as of this encounter
--- OUTSIDE RECORDS SUMMARY | 2024-10-07 00:27 | XMS_ITS | Encounter Summary ---
Author Organization [facility] Address [address] [facility] [place] [address] Phone Care Team Providers Care Tunnel Elastic Operator Lockstitch Name Role Phone Oswaldo Serrano MD Primary Care Provider Angel Crowe DPM Unavailable [phone] Mora Fritz Unavailable Unavailable Reason for Visit * Reason Onset Date Comments Results 12/29/2020 Encounter Details Date Type Department Care Team (Late st Contact Info) Description 12/29/2020 Telephone [facility] [address] [place] [address] Oswaldo Serrano MD #[address] [address] Results Social History Tobacco Use [...] encounter Miscellaneous Notes * Telephone Encounter - Shwetha Rosas RN - 12/29/2020 2:06 PM CDT Patient's sister Peg calling for results of chest xray from 12/26/20. Patient did not understand [employer] message with results. Sister was notified that result was normal. documented in this encounter Plan of Treatment Upcoming Encounters Date Type Department Care Team (Late st Contact Info) Description 10/08/2024 2:15 PM DIRECTOR REGULATORY AFFAIRS Office Visit [facility] UROLOGY #2 [place] [address] Orlin Urbina, DIRECTOR DATA PROCESSING, [employer] DISTRICT SUPERVISOR #2 [place] [address] 10/18/2024 2:15 PM DIRECTOR REGULATORY AFFAIRS [facility] 1 [place] [address] Oswaldo Serrano MD #[address] [address] Discharge Disposition: Discharged to home or Selfcare 11/29/2024 2:30 PM DIRECTOR REGULATORY AFFAIRS [facility] Visit [facility] #2 [place] [address] Oswaldo Serrano MD #[address] [address] 11/30/2024 3:00 PM DIRECTOR REGULATORY AFFAIRS Office Visit [facility] - Endocrinology [facility] #2 [place] [address] Ok Jorge MD #[address] [address] documented as of this encounter Visit Diagnoses Not on filedocumented in this encounter Additional Health Concerns Assessment Noted Time PHQ-9 Depression Total Score: 2 07/18/20 20 4:26 PM CDT documented as of this encounter Care Teams Tunnel Elastic Operator Lockstitch Relationship Specialty Start Date End Date Oswaldo Serrano MD #[address] [address] PCP - General Family Medicine 05/19/17 Angel Crowe DPM #[address] [address] Consulting Physician Podiatry 06/16/17 Mora Fritz [place] Behavioral Health Navigator 06/15/18 documented as of this encounter
--- OUTSIDE RECORDS SUMMARY | 2024-10-07 00:27 | XMS_ITS | Encounter Summary ---
Author Organization [facility] Address [address] [place] [address] Phone Care Team Providers Care Home Care Manager Rn Name Role Phone Oswaldo Serrano MD Primary Care Provider [phone] Angel Crowe DPM Unavailable [phone] Mora Fritz Unavailable Unavailable Reason for Referral * Radiology Services (Routine) - Closed Specialty Diagnoses / Procedures Referred By Praful ferro Referred To Contact Radiology Diagnoses Chest congestion Procedures XR CHEST 2 VIEWS Oswaldo Serrano MD #[address] [address] Phone: tel: fax: Referral ID Status Reason Start Date Expiration Date Visits Re quested Visits Authorized [id number] Closed 12/23/2020 1 1 Reason for Visit * Radiology Services (Routine) - Closed Specialty Diagnoses / Procedures Referred By Praful ferro Referred To Contact Radiology Diagnoses Chest congestion Procedures XR CHEST 2 VIEWS Oswaldo Serrano MD #[address] [address] Phone: tel: fax: Referral ID Status Reason Start Date Expiration Date Visits Re quested Visits Authorized [id number] Closed 12/23/2020 1 1 Encounter Details Date Type Department Care Team (Latest Contact Info) Description 12/26/2020 4:30 PM CDT - 12/26/2020 11:59 PM CDT Hospital Encounter [facility] Diagnostic Radiology 1 [place] [address] Oswaldo Serrano MD #[address] [address] Discharge Disposition: Discharged to home or Selfcare [...] CAPSULE BY MOUTH TWICE DAILY 60 Capsule 12/10/2020 1 ergocalciferol (VITAMIN D) [address]6320 UNIT CapsuleIndication s:Vitamin D deficiency Take 1 [...] nightly. 90 Cap 3 09/16/2020 1 omeprazole (PRILOSEC) 20 MG CAPSULE DELAYED RELEASE Take 1 Cap by mouth daily. 90 Cap 3 02/07/2020 1 oxybutynin (DITROPAN) 5 MG TabletIndications :OAB (overactive [...] st Contact Info) Description 10/08/2024 2:15 PM PSYCH ASSISTANT Office Visit [facility] UROLOGY #2 [place] [address] Orlin Urbina, EMPLOYMENT SERVICES DIRECTOR, BUTTON STATION WORKER #2 [place] [address] 10/18/2024 2:15 PM PSYCH ASSISTANT [facility] 1 [place] [address] Oswaldo Serrano MD #2 [facility] [address] [place] [address] Discharge Disposition: Discharged to home or Selfcare 11/29/2024 2:30 PM PSYCH ASSISTANT Office Visit [facility] - [place] #2 [place] [address] Oswaldo Serrano MD #2 [facility] [address] [place] [address] 11/30/2024 3:00 PM PSYCH ASSISTANT Office Visit [facility] - [place] #2 [place] [address] Ok Jorge MD #2 [facility] [address] [place] [address] documented as of this encounter Procedures Procedure Name Priority Date/Time Associated Diagnosis Comments XR CHEST 2 VIEWS Routine 12/26/2020 4:54 PM CDT Chest congestion documented in this encounter Results * XR CHEST 2 [...] AM T: ??12/29/2020 8:06 AM Report ID: [id number] Reading Location: [id number] Procedure Note Tom Cabezas MD - 12/29/2020 [...] by Tom Cabezas ML: ML Report ID: [id number] Reading Location: [id number] IMPRESSION: 1. Stable mild cardiomegaly with minimal pulmonary edema. 2. Stable prominence of the main pulmonary artery which may indicate underlying pulmonary hypertension. Oswaldo Serrano MD IMG DIAGNOSTIC ORDERABLES F inal Result documented in this encounter Visit Diagnoses Diagnosis Chest congestion Other symptoms involving respiratory system and chest documented in this encounter Additional Health Concerns Assessment Noted Time PHQ-9 Depression Total Score: 2 07/18/20 20 4:26 PM CDT documented as of this encounter Care Teams Home Care Manager Rn Relationship Specialty Start Date End Date Oswaldo Serrano MD #[address] [address] PCP - General Family Medicine 05/19/17 Angel Crowe DPM #[address] [address] Consulting Physician Podiatry 06/16/17 Mora Fritz Behavioral Health Navigator 06/15/18 documented as of this encounter
--- OUTSIDE RECORDS SUMMARY | 2024-10-07 00:27 | XMS_ITS | Encounter Summary ---
Author Organization [facility] Address [address] [place] [address] Phone Care Team Providers Care Assistant Golf Course Superintendent Name Role Phone Oswaldo Serrano MD Primary Care Provider [phone] Angel Crowe DPM Unavailable Mora Fritz Unavailable Unavailable Encounter Details Date Type Department Care Team (Late st Contact Info) Description 02/02/2021 Telephone [facility] [address] [place] [address] Oswaldo Serrano MD #[address] [address] Social History Tobacco Use Types [...] Coronavirus / COVID-19? No / Unsure 02/02/2021 9:59 AM CDT documented as of this encounter Miscellaneous Notes * Telephone Encounter - Amina Sage RN - 02/02/2021 10:25 AM CDT Patient's sister (Dilia JACQUES) calling to discuss the results of head CT done on 01/28/2021. Dilia advised of the following: Connor Yuan APN, FORMULATOR 01/30/2021 ??1:20 PM CDT Please call patient/caregiver and let them know the CT of the head was OK. Dilia also advised that patient's creatinine lab came back normal on 01/28/2021. Dilia states no further needs at this time. documented in this encounter Plan of Treatment Upcoming Encounters Date Type Department Care Team (Late st Contact Info) Description 10/08/2024 2:15 PM STATEMENT CLERKS MANAGER Office Visit [facility] UROLOGY #2 [place] [address] Orlin Urbina APRN, FORMULATOR #2 [place] [address] 10/18/2024 2:15 PM STATEMENT CLERKS MANAGER Appointment [facility] Mammography 1 [place] [phone] Oswaldo Serrano MD #[address] [address] Discharge Disposition: Discharged to home or Selfcare 11/29/2024 2:30 PM STATEMENT CLERKS MANAGER Office Visit [facility] Medical [facility] - Family Medicine [facility] #2 [place] [address] Oswaldo Serrano MD #[address] [address] 11/30/2024 3:00 PM STATEMENT CLERKS MANAGER Office Visit [facility] Endocrinology [facility] #2 [place] [address] Ok Jorge MD #[address] [address] documented as of this encounter Visit Diagnoses Not on filedocumented in this encounter Additional Health Concerns Assessment Noted Time PHQ-9 Depression Total Score: 2 07/18/20 20 4:26 PM CDT documented as of this encounter Care Teams Assistant Golf Course Superintendent Relationship Specialty Start Date End Date Oswaldo Serrano MD #[address] [address] PCP - General Family Medicine 05/19/17 Angel Crowe DPM #[address] [address] Consulting Physician Podiatry 06/16/17 Mora Fritz Behavioral Health Navigator 06/15/18 documented as of this encounter
--- OUTSIDE RECORDS SUMMARY | 2024-10-07 00:27 | XMS_ITS | Encounter Summary ---
Author Organization [facility] Care Team Providers Care Server Manager Name Role Phone Oswaldo Serrano MD Primary Care Provider [phone] Angel Crowe DPM Unavailable [phone] Mora Fritz Unavailable Unavailable Encounter Details Date Type Department Care Team (Latest Contact Info) Description 12/13/2020 Travel Social History Tobacco Use Types Packs/Day [...] COVID-19? No / Unsure 12/13/2020 11:23 AM DRYING AND WINDING SUPERVISOR documented as of this encounter Plan of Treatment Upcoming Encounters Date Type Department Care Team (Late st Contact Info) Description 10/08/2024 2:15 PM DRYING AND WINDING SUPERVISOR Office Visit [facility] UROLOGY #2 [place] [address] Orlin Urbina, FLEET MAINTENANCE MANAGER, OCTAVE BOARD ASSEMBLER #2 [place] [address] 10/18/2024 2:15 PM DRYING AND WINDING SUPERVISOR [facility] 1 [place] [address] Oswaldo Serrano MD #2 [facility] [address] [place] [address] Discharge Disposition: Discharged to home or Selfcare 11/29/2024 2:30 PM DRYING AND WINDING SUPERVISOR Office Visit [facility] - [place] #2 [place] [address] Oswaldo Serrano MD #2 [facility] [address] [place] [address] 11/30/2024 3:00 PM DRYING AND WINDING SUPERVISOR Office Visit [facility] - [place] #2 [place] [address] Ok Jorge MD #2 [facility] [address] [place] [address] documented as of this encounter Visit Diagnoses Not on filedocumented in this encounter Additional Health Concerns Assessment Noted Time PHQ-9 Depression Total Score: 2 07/18/20 20 4:26 PM CDT documented as of this encounter Care Teams Server Manager Relationship Specialty Start Date End Date Oswaldo Serrano MD #[address] [address] PCP - General Family Medicine 05/19/17 Angel Crowe DPM #[address] [address] Consulting Physician Podiatry 06/16/17 Mora Fritz Behavioral Health Navigator 06/15/18 documented as of this encounter
--- OUTSIDE RECORDS SUMMARY | 2024-10-07 00:27 | XMS_ITS | Encounter Summary ---
Author Organization [facility] Address [address] [place] [address] Phone Care Team Providers Care Lead Tinner Name Role Phone Oswaldo Serrano MD Primary Care Provider Angel Crowe DPM Unavailable Mora Fritz Unavailable Unavailable Reason for Visit * Reason Onset Date Comments Results 02/16/2021 Encounter Details Date Type Department Care Team (Late st Contact Info) Description 02/16/2021 Telephone [facility] - Family Medicine [facility] #2 [place] [address] Oswaldo Serrano MD #[address] [address] Results Social History Tobacco Use Types Packs/Day [...] Encounter - Zainab Roblero RN - 02/24/2021 9:29 AM CDT Received notification that this was not read. Spoke with dilia neff, to inform. Verbalized understanding. * Telephone Encounter - Zainab Roblero RN - 02/16/2021 7:26 AM CDT Sent to my chart * Telephone Encounter - Zainab Roblero RN - 02/16/2021 7:26 AM CDT ----- Message from Oswaldo Serrano MD sent at 02/15/2021 3:53 PM CDT ----- Let her know the liver enzyme & creatine kinase are still elevated. Tell her to do labs soon (nonfasting). I will also get an ultrasound of her liver. Orders entered. Thanks! documented in this encounter Plan of Treatment Upcoming Encounters Date Type Department Care Team (Late st Contact Info) Description 10/08/2024 2:15 PM FENCE SUPERVISOR Office Visit [facility] #2 [place] [address] Orlin Urbina APRN, TECHNICAL SUPPORT AGENT #2 [place] [address] 10/18/2024 2:15 PM FENCE SUPERVISOR [facility] 1 [place] [address] Oswaldo Serrano MD #[address] [address] Discharge Disposition: Discharged to home or Selfcare 11/29/2024 2:30 PM FENCE SUPERVISOR [facility] Visit [facility] #2 [place] [address] Oswaldo Serrano MD #[address] [address] 11/30/2024 3:00 PM FENCE SUPERVISOR Office Visit [facility] Medical [facility] - Endocrinology [facility] #2 [place] [address] Ok Jorge MD #[address] [address] documented as of this encounter Visit Diagnoses Not on filedocumented in this encounter Additional Health Concerns Assessment Noted Time PHQ-9 Depression Total Score: 2 07/18/20 20 4:26 PM CDT documented as of this encounter Care Teams Lead Tinner Relationship Specialty Start Date End Date Oswaldo Serrano MD #[address] [address] PCP - General Family Medicine 05/19/17 Angel Crowe DPM #[address] [address] Consulting Physician Podiatry 06/16/17 Mora Fritz Behavioral Health Navigator 06/15/18 documented as of this encounter
--- OUTSIDE RECORDS SUMMARY | 2024-10-07 00:27 | XMS_ITS | Encounter Summary ---
Author Organization [facility] Address [address] [place] [address] Phone Care Team Providers Care Trout Farmer Name Role Phone Oswaldo Serrano MD Primary Care Provider [phone] Angel Crowe DPM Unavailable Mora Fritz Unavailable Unavailable Reason for Visit * Reason Comments Diabetes Mellitus Encounter Details Date Type Department Care Team (Late st Contact Info) Description 11/28/2020 3:00 PM POCKETBOOK MAKER Telemedicine [facility] - Endocrinology - [place] #[address] [place] [address] Ok Jorge MD #[address] [address] Type 2 diabetes mellitus with diabetic polyneuropathy, with long-term current use of insulin (HCC) (Primary Dx); Insulin dose changed (HCC) Discharge Disposition: Discharged [...] have Coronavirus / COVID-19? No / Unsure 11/28/2020 2:56 PM POCKETBOOK MAKER documented as of this encounter Patient Instructions * Patient Instructions* Ok Jorge MD - 11/28/2020 3:00 PM POCKETBOOK MAKER Please take Lantus??14??units in the??morning ?? Please take Humalog??14??units before each meal ?? Please use correctional factor insulin before each meal as directed ?? Please monitor blood sugar before each meal and at bedtime ?? Contact Endocrinology Clinic for low blood sugar events ?? Follow up visit in 2 weeks ?? RULE OF 15: ??If you have signs/symptoms of low blood sugar (hypoglycemia),and/or your blood sugar is less than 70 mg/dl, you may choose one of the below treatments (~15 mg of carbohydrate):glucose tablets or 1?2 glass (4 [...] toes clean and dry. ?? CORRECTION FACTOR: ??1:25 ?? BLOOD GLUCOSE (SUGAR) CORRECTION FACTOR: ??1:25?? HUMALOG/NOVOLOG UNDER 70 TREAT LOW, USE RULE OF 15 ?71 - 150 ??NO CORRECTIONAL INSULIN NEEDED 151 - 175 ??+1 UNIT 176 - 200 ??+2 UNITS 201 - 225 ??+3 UNITS 226 - 250 ??+4 UNITS 251 - 275 ??+5 UNITS 276 - 300 ??+6 UNITS 301 - 325 ??+7 UNITS 326 - 350 ??+8 UNITS 351 - 375 ??+9 UNITS 375 - 400 ??+10 UNITS > 400 ??+11 UNITS ETBOOK MAKER documented in this encounter Progress Notes * Ok Jorge MD - 11/28/2020 3:00 PM CST Subject&Objective This was a telemedicine visit with Loretta Penn which took place via Telephone. Loretta Penn is a 59-year-old woman who comes to the Endocrinology office to discuss management of type 2 diabetes mellitus. 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 Other pertinent health history includes hypertension, dyslipidemia, and obesity. The patient was initially diagnosed with diabetes >10 years ago. Currently, the patient takes Lantus 12 units in the morning, Humalog 14 units with breakfast, 7 units with lunch, and 14 units with supper for management of hyperglycemia. The patient denied low blood sugar event or severe hypoglycemia requiring third constitution party intervention. Review of her glucometer report for the past several days showed that morning blood sugars have been running between 172 and 250 mg/dL with blood sugars checked at other times of the day in the range of 181 to 340 mg/ dL. Physical Exam Unable to obtain Assessment and Plan Loretta Penn is a middle-aged woman with type 2 diabetes mellitus whose glycemic control was suboptimal based on review of her capillary blood glucose report. Treatment consideration and lifestyle modification were discussed with her and her sister at great length. She will take Humalog 14 units before each meal and Lantus 14 units in the morning for management of hyperglycemia. The patient will return for office reevaluation in 2 weeks. PLAN: 1. Take Lantus 14 units in the morning 2. Take Humalog 14 units before each meal 3. Monitor blood sugar QAC/QHS 4. Bring CBG log for review 5. Contact Endocrinology Clinic for low blood sugar events 6. RTC in 2 weeks (tele visit) Obesity PLAN: 1. Low carb and calorie diet 2. Avoid snack and beverage between meal and at bedtime The patient was assessed via telephone for a duration of 24 minutes, regarding hyperglycemia. The patient verbally consented for this service to be performed and billed. Ok Jorge MD 11/28/2020 ETBOOK MAKER documented in this encounter Plan of Treatment Upcoming Encounters Date Type Department Care Team (Late st Contact Info) Description 10/08/2024 2:15 PM POCKETBOOK MAKER Office Visit [facility] UROLOGY #2 [place] [phone] Orlin Urbina APRN, GROUND HOST/HOSTESS #2 [place] [address] 10/18/2024 2:15 PM POCKETBOOK MAKER [facility]ointment [facility] M[facility] 1 [place] [phone] Oswaldo Serrano MD #[address] [address] Discharge Disposition: Discharged to home or Selfcare 11/29/2024 2:30 PM POCKETBOOK MAKER Office Visit [facility] - Family Medicine [facility] #2 [place] [address] Oswaldo Serrano MD #[address] [address] 11/30/2024 3:00 PM POCKETBOOK MAKER Office Visit [facility] - Endocrinology - [place] [address] [place] [phone] Ok Jorge MD #2 [facility] [address] [place] [address] documented as of this encounter Visit Diagnoses Diagnosis Type 2 diabetes mellitus with diabetic polyneuropathy, with long-term current use of insulin (HCC)- Primary Insulin dose changed (HCC) documented in this encounter Additional Health Concerns Assessment Noted Time PHQ-9 Depression Total Score: 2 07/18/20 20 4:26 PM CDT documented as of this encounter Care Teams Trout Farmer Relationship Specialty Start Date End Date Oswaldo Serrano MD #2 [facility] [address] [place] [address] PCP - General Family Medicine 05/19/17 Angel Crowe DPM #2 [facility] [address] [place] [address] Consulting Physician Podiatry 06/16/17 Mora Fritz Behavioral Health Navigator 06/15/18 documented as of this encounter
--- OUTSIDE RECORDS SUMMARY | 2024-10-07 00:27 | XMS_ITS | Encounter Summary ---
Author Organization [employer] Care Team Providers Care Photo Editor Name Role Phone Oswaldo Serrano MD Primary Care Provider [phone] Angel Crowe DPM Unavailable [phone] Mora Fritz Unavailable Unavailable Encounter Details Date Type Department Care Team (Latest Contact Info) Description 12/26/2020 Travel Social History Tobacco Use Types Packs/Day [...] st Contact Info) Description 10/08/2024 2:15 PM STRIP WINDER Office Visit [facility] UROLOGY #2 [place] [phone] Orlin Urbina, RESIDENTIAL ROOFER, SEPHORA OPERATIONS CONSULTANT #2 [place] [address] 10/18/2024 2:15 PM STRIP WINDER [facility] 1 [place] [phone] Oswaldo Serrano MD #2 [facility] [address] [place] [address] Discharge Disposition: Discharged to home or Selfcare 11/29/2024 2:30 PM STRIP WINDER Office Visit [facility] - Family Medicine - [place] #2 [place] [phone] Oswaldo Serrano MD #2 [facility] [address] [place] [address] 11/30/2024 3:00 PM STRIP WINDER Office Visit [facility] - [place] #2 [place] [phone] Ok Jorge MD #2 [facility] [address] [place] [address] documented as of this encounter Visit Diagnoses Not on filedocumented in this encounter Additional Health Concerns Assessment Noted Time PHQ-9 Depression Total Score: 2 07/18/20 20 4:26 PM CDT documented as of this encounter Care Teams Photo Editor Relationship Specialty Start Date End Date Oswaldo Serrano MD #[address] [address] PCP - General Family Medicine 05/19/17 Angel Crowe DPM #[address] [address] Consulting Physician Podiatry 06/16/17 Mora rFitz Behavioral Health Navigator 06/15/18 documented as of this encounter
--- OUTSIDE RECORDS SUMMARY | 2024-10-07 00:27 | XMS_ITS | Encounter Summary ---
Author Organization [employer] Care Team Providers Care Auto Crane Driver Name Role Phone Oswaldo Serrano MD Primary Care Provider [phone] Angel Crowe DPM Unavailable [phone] Mora Fritz Unavailable Unavailable Encounter Details Date Type Department Care Team (Latest Contact Info) Description 12/08/2020 Travel Social History Tobacco Use Types Packs/Day [...] COVID-19? No / Unsure 12/08/2020 2:50 PM RECONDITIONER documented as of this encounter Plan of Treatment Upcoming Encounters Date Type Department Care Team (Late st Contact Info) Description 10/08/2024 2:15 PM RECONDITIONER Office Visit [facility] PHYSICIAN GROUP UROLOGY #2 [place] [phone] Orlin Urbina, FOUNDATION DRILL OPERATOR, AUTOMOTIVE WELDER #2 [place] [address] 10/18/2024 2:15 PM RECONDITIONER [facility] 1 [place] [phone] Oswaldo Serrano MD #2 [facility] [address] [place] [address] Discharge Disposition: Discharged to home or Selfcare 11/29/2024 2:30 PM RECONDITIONER Office Visit [facility] - [facility] Medicine - [place] #2 [place] [phone] Oswaldo Serrano MD #2 [facility] [address] [place] [address] 11/30/2024 3:00 PM RECONDITIONER Office Visit [facility] - Endocrinology - [place] #2 [place] [phone] Ok Jorge MD #2 [facility] [address] [place] [phone] documented as of this encounter Visit Diagnoses Not on filedocumented in this encounter Additional Health Concerns Assessment Noted Time PHQ-9 Depression Total Score: 2 07/18/20 20 4:26 PM CDT documented as of this encounter Care Teams Auto Crane Driver Relationship Specialty Start Date End Date Oswaldo Serrano MD #[address] [address] PCP - General Family Medicine 05/19/17 Angel Crowe DPM #[address] [address] Consulting Physician Podiatry 06/16/17 Mora Fritz Behavioral Health Navigator 06/15/18 documented as of this encounter
--- OUTSIDE RECORDS SUMMARY | 2024-10-07 00:27 | XMS_ITS | Encounter Summary ---
Author Organization [facility] Address [address] [place] [address] Phone Care Team Providers Care Robotic Welding Operator Name Role Phone Oswaldo Serrano MD Primary Care Provider Angel Crowe DPM Unavailable [phone] Mora Fritz Unavailable Unavailable Reason for Visit * Reason Comments Hypertension 6 wk f/u Encounter Details Date Type Department Care Team (Late st Contact Info) Description 02/27/2021 10:15 AM CDT Office Visit [facility] - Family [facility] #2 [place] [address] Oswaldo Serrano MD #[address] [address] Urinary frequency (Primary Dx) Discharge Disposition: Discharged to home [...] AM CDT documented as of this encounter Last Filed Vital Signs Vital Sign Reading Time Taken Comments Blood Pressure 128/72 02/27/2021 10:28 AM CDT Pulse 88 02/27/2021 10:28 AM CDT Temperature 37 ??C (98.6 ??F) 02/27/2021 10: 28 AM CDT Respiratory Rate 16 02/27/2021 10:2 8 AM CDT Oxygen Saturation 94% 02/27/2021 10: 28 AM CDT Inhaled Oxygen Concentration - - Weight 132.5 kg (292 lb 3.2 oz) 021 10:28 AM CDT Height - - Body Mass Index 39.63 02/16/2021 3:42 PM CDT documented in this encounter Patient Instructions * Patient Instructions* Oswaldo Serrano MD - 02/27/2021 10:15 AM CDT 1. Take Diflucan pill today for yeast infection. 2. Do urine tests & other labs today! 3. Drink 6 - 8 glasses of water daily & a glass of cranberry juice daily. 4. See all other doctors as scheduled. 5. Please complete survey if you receive one. 6. Do B12 lab in mid-May! 7. Get ultrasound done as scheduled. documented in this encounter Progress Notes * Tina BenitezDOMINICK - 02/27/2021 10:15 AM CDT Loretta Penn, 60 y.o., female is here for Hypertension (6 wk f/u) Medication Refills: Patient reports/denies need for medication refills. Orders Pended: no Requested Prescriptions No prescriptions requested or ordered in this encounter Home Medications Medication Sig Start Date End Date Taking? Authorizing Provider albuterol 108 (90 Base) MCG/ACT Aerosol Solution 02/14/21 Nica Muniz MD ASPIR-LOW 81 MG Tablet Delayed Response 05/24/17 Nica Muniz MD azithromycin (ZITHROMAX) 250 MG Tablet 2 tab(s) daily for 1 day, then 1 tab(s) daily for days 2-5. 02/16/21 Oswaldo Serrano MD Blood Glucose Monitoring Suppl Device Test blood glucose 4 times daily. E11.9, insulin dependent 12/19/19 Ok Jorge MD Blood Pressure Monitoring (Blood Pressure Cuff) [facility] battery-powered arm cuff (Dx: I10) 12/19/20 Oswaldo Serrano MD carvedilol (COREG) 25 MG Tablet 25 mg 2 times daily. 05/06/17 Nica Muniz MD Cyanocobalamin (B-12) 500 MCG Tablet Take 1 Tablet by mouth daily for 90 doses. 02/15/21 05/16/21 Oswaldo Serrano MD desmopressin (DDAVP) 0.2 MG Tablet Take 1 Tab by mouth nightly. Limit intake of liquids after the evening meal. 10/29/20 Carson Michel MD dilTIAZem (CARDIZEM) 30 MG Tablet TK 1 T PO TID 04/28/17 Nica Muniz MD diphenhydrAMINE (BENADRYL) 25 MG Tablet Take 25 mg by mouth every 6 hours as needed for Itching or Sleep. 05/24/17 Nica Muniz MD DOK 100 MG Capsule TAKE ONE CAPSULE BY MOUTH TWICE DAILY 01/22/21 Oswaldo Serrano MD ergocalciferol (VITAMIN D) [address]806 UNIT Capsule TAKE ONE CAPSULE BY MOUTH ONCE WEEKLY 02/18/21 Ronda Pedraza APN, CNP escitalopram (LEXAPRO) 10 MG Tablet TAKE ONE TABLET BY MOUTH DAILY 09/18/20 Oswaldo Serrano MD fluconazole (DIFLUCAN) 150 MG Tablet TAKE 1 TABLET BY MOUTH 1 TIME FOR 1 DOSE 10/17/20 Provider, MD Nica fluticasone (FLONASE) 50 MCG/ACT Suspension 1-2 Sprays [...] glucose 4x daily. E11.9, insulin dependent 03/26/20 Ok Jorge MD insulin lispro (HumaLOG) 100 UNIT/ML Solution 14 UNITS BEFORE EACH MEAL --- ISF OF 1:25 UP TO 80 UNITS PER DAY 12/04/20 Ok Jorge MD Insulin Pen Needle (PEN NEEDLES 31GX5/16 ) 31G X 8 MM Misc Three times a day 07/01/17 Ok Jorge MD Insulin Syringe-Needle U-100 (TRUEPLUS INSULIN SYRINGE) 31G X 5/16 0.5 ML Misc USE 4 TIMES DAILY 12/19/19 Ok Jorge MD Lancets Misc Test four times daily. E11.9, insulin dependent 12/19/19 Ok Jorge MD Lantus 100 UNIT/ML Solution 17 Units by Subcutaneous route every morning. 02/13/21 Ok Jorge MD levothyroxine (SYNTHROID) 50 MCG Tablet TAKE ONE TABLET BY MOUTH EVERY MORNING 12/10/20 Oswaldo Serrano MD lisinopril (PRINIVIL, ZESTRIL) 5 MG Tablet TAKE ONE TABLET BY MOUTH DAILY 11/13/20 Oswaldo Serrano MD nortriptyline (PAMELOR) 10 MG Capsule Take 1 Cap by mouth nightly. 09/16/20 Oswaldo Serrano MD omeprazole (PriLOSEC) 20 MG CAPSULE DELAYED RELEASE TAKE ONE CAPSULE BY MOUTH DAILY 01/22/21 Oswaldo Serrano MD oxybutynin (DITROPAN) 5 MG Tablet TAKE ONE TABLET BY MOUTH DAILY 10/06/20 Carson Michel MD potassium chloride SA (KLORCON M) 20 MEQ Tablet Controlled Release Take 1 Tab by mouth daily. 11/12/20 Connor Yuan APN, DEVELOPMENT OFFICER predniSONE (DELTASONE) 20 MG Tablet Take 1 Tablet by mouth 2 times daily. 02/16/21 Oswaldo Serrano MD rivaroxaban (Xarelto) 20 MG [...] been addressed with the patient today: No bpa went over * Oswaldo Serrano MD - 02/27/2021 10:15 AM CDT CHIEF COMPLAINT: Urinary frequency. SUBJECTIVE: Patient is here today complaining of urinary frequency. She seems to be more irritable in the last week or so. She is taking Z-Esau and prednisone for URI. The management professionals seems to think she may need some Diflucan since she might have a yeast infection going on. She sees Dr. Salome Flores, her Wet Press Tender in [place] for atrial fibrillation. I have reviewed all the systems. They are negative except as mentioned in HPI. OBJECTIVE: VITAL SIGNS: Blood pressure 128/72, pulse 88, temperature 98.6, weight 292. GENERAL: Patient is talkative, cooperative, appropriately dressed. CHEST: Clear to auscultation bilaterally. No wheezing. HEART: S1, S2, no murmurs. NECK: No carotid bruits auscultated. ASSESSMENT/PLAN: 1. Atrial fibrillation. She is to follow up Dr. Pastora Flores. 2. Urinary frequency. Will get a UA and urine culture on her today. I gave her Diflucan for possible candidiasis. 3. This patient is to follow up in 3 months. IJN: [id number] documented in this encounter Plan of Treatment Upcoming Encounters Date Type Department Care Team (Late st Contact Info) Description 10/08/2024 2:15 PM TV HOST Office Visit [facility] UROLOGY #2 [place] [address] Orlin Urbina, TRADE FACILITATOR, DEVELOPMENT OFFICER #2 [place] [address] 10/18/2024 2:15 PM TV HOST Appointment [facility] Mammography 1 [place] [address] Oswaldo Serrano MD #[address] [address] Discharge Disposition: Discharged to home or Selfcare 11/29/2024 2:30 PM TV HOST Office Visit [facility] - [place] #2 [place] [address] Oswaldo Serrano MD #2 [facility] [address] [place] [address] 11/30/2024 3:00 PM TV HOST [facility] - [place] #2 [place] [phone] Ok Jorge MD #[address] [address] documented as of this encounter Results * CULTURE, URINE (02/27/2021 11:19 AM CDT) CULTURE RESULTS KLEBSIELLA PNEUMONIAE 03/01/2021 7:03 PM CDT [facility] Culture URINE SPECIMEN COLLECTION, CLEAN CATCH [...] II 64 mcg/ml: Intermediate Klebsiella pneumoniae Piperacillin/Tazobactam [facility] VIT EK II <=4 mcg/ml: Susceptible Klebsiella pneumoniae Tobramycin [facility] VITEK II <=1 mcg/ml: Susceptible Klebsiella pneumoniae Trimeth/Sulfamethoxazole [facility] AKI II <=20 mcg/ml: Susceptible us Oswaldo Serrano MD MICROBIOLOGY - GENERAL MAGDALENO MCINTOSH Final Result [facility] [address] [place] [address], [place] * URINALYSIS REFLEX IF INDICATED BY ABNORMAL RESULTS (02/27/2021 11:19 AM CDT) Pathologist [facility] SPECIFIC GRAVITY 1.010 1.003 - 1.030 02/27/2021 2:03 PM CDT [facility] URINE PH 5.0 5.0 - 9.0 02/27/2021 2:03 PM CDT [facility] WBC ESTERASE Negative Negative 02/27/2021 2:03 PM CDT [facility] NITRITE Negative Negative 02/27/2021 2:03 PM CDT [facility] PROTEIN, RANDOM URINE Negative Negative 02/27/2021 2:03 PM CDT [facility] URINE GLUCOSE, QUAL Negative Negative 02/27/2021 2:03 PM CDT [facility] URINE KETONES Negative Negative 02/27/2021 2:03 PM CDT [facility] UROBILINOGEN Normal Normal mg/dL 02/27/2021 2:03 PM CDT [facility] URINE BILIRUBIN Negative Negative 2:03 PM CDT [facility] URINE BLOOD Negative Negative jolene/ul 02/27/2021 2:03 PM CDT [facility] URINALYSIS COLOR Pale yellow 021 2:03 PM CDT [facility] URINALYSIS CLARITY Clear 02/27/2021 2:03 PM CDT [facility] Urine URINE SPECIMEN COLLECTION, CLEAN CATCH / Unknown Non-Phlebotomy Collection / Unknown 02/27/2021 11:19 AM CDT 02/27/2021 11:19 AM CDT Oswaldo Serrano MD URINE ORDERABLES Final Resu lt [facility] #1 [place] [address] documented in this encounter Visit Diagnoses Diagnosis Urinary frequency- Primary documented in this encounter Additional Health Concerns Assessment Noted Time PHQ-9 Depression Total Score: 2 07/18/20 20 4:26 PM CDT documented as of this encounter Care Teams Robotic Welding Operator Relationship Specialty Start Date End Date Oswaldo Serrano MD #[address] [address] PCP - General Family Medicine 05/19/17 Angel Crowe DPM #[address] [address] Consulting Physician Podiatry 06/16/17 Mora Fritz Behavioral Health Navigator 06/15/18 documented as of this encounter
--- OUTSIDE RECORDS SUMMARY | 2024-10-07 00:27 | XMS_ITS | Encounter Summary ---
Author Organization [facility] Address [address] [place] [address] Phone Care Team Providers Care Driver Messenger Name Role Phone Oswaldo Serrano MD Primary Care Provider Angel Crowe DPM Unavailable Mora Fritz Unavailable Unavailable Reason for Visit * Reason Comments Follow-up HTN Encounter Details Date Type Department Care Team (Late st Contact Info) Description 2020 11:30 AM ADON [facility] #2 [place] [address] Oswaldo Serrano MD [address] [address] Essential hypertension (Primary Dx); Hypothyroidism, unspecified type; B12 deficiency; Elevated CK Discharge Disposition: Discharged to home or Selfcare [...] COVID-19? No / Unsure 2020 11:28 AM ADON documented as of this encounter Last Filed Vital Signs Vital Sign Reading Time Taken Comments Blood Pressure 108/68 2020 11:42 AM ADON Pulse 82 2020 11:42 AM ADON Temperature 36.7 ??C (98.1 ??F) 2020 11:[address] Respiratory Rate 20 2020 11:42 AM ADON Oxygen Saturation 95% 2020 11:42 AM ADON Inhaled Oxygen Concentration - - Weight 132 kg (291 lb) 2020 11:42 AM ADON Height 167.6 cm (5' 6 ) 2020 11:42 AM ADON Body Mass Index 46.97 2020 11:42 AM ADON documented in this encounter Patient Instructions * Patient Instructions* Oswaldo Serrano MD - 2020 11:30 AM ADON 1. Get arm blood pressure cuff & new batteries. 2. Update Dr. Flores on your blood pressure/pulse readings & update Dr. Jorge on your blood sugars. 3. See Dr. Jorge and all other doctors as scheduled. 4. Do labs today! documented in this encounter Progress Notes * Mariela Coco Urbina, CRANE FOLLOWER - 2020 11:30 AM CST Loretta Penn, 60 y.o., female is here for Follow-up (HTN) Medication Refills: Patient reports/denies need for medication refills. Orders Pended: no Requested Prescriptions No prescriptions requested or ordered in this encounter Home Medications Medication Sig Start Date End Date Taking? Authorizing Provider ASPIR-LOW 81 MG Tablet Delayed Response 05/24/17 Nica Muniz MD azithromycin (ZITHROMAX) 250 MG Tablet 2 tab(s) daily for 1 day, then 1 tab(s) daily for days 2-5. Patient not taking: Reported on 2020 12/08/20 Oswaldo Serrano MD Blood Glucose Monitoring Suppl [...] TAKE ONE CAPSULE BY MOUTH TWICE DAILY 12/10/20 Yes Oswaldo Serrano MD ergocalciferol (VITAMIN D) 64914 UNIT Capsule Take 1 Capsule by mouth once a week. 12/13/20 Yes Connor Yuan BATHHOUSE ATTENDANT, RECOATING MACHINE OPERATOR escitalopram (LEXAPRO) 10 MG Tablet TAKE ONE TABLET BY MOUTH DAILY 09/18/20 Yes Oswaldo Serrano MD fluconazole (DIFLUCAN) 150 MG Tablet TAKE 1 TABLET BY MOUTH 1 TIME FOR 1 DOSE 10/17/20 ProviderNica MD fluticasone (FLONASE) 50 MCG/ACT Suspension 1-2 [...] mouth daily. Patient not taking: Reported on 2020 11/12/20 Connor Yuan APN, CNP Glucose Blood Strip Test blood glucose 4x daily. E11.9, insulin dependent 03/26/20 Yes Ok Jorge MD insulin glargine (Lantus) 100 UNIT/ML Solution 12 Units by Subcutaneous route every morning. 08/06/20 Yes Ok Jorge MD insulin lispro (HumaLOG) [...] Capsule Take 1 Cap by mouth nightly. 12/8/20 Yes Oswaldo Serrano MD omeprazole (PRILOSEC) 20 MG CAPSULE DELAYED RELEASE Take 1 Cap by mouth daily. 02/07/20 Yes Oswaldo Serrano MD oxybutynin (DITROPAN) 5 MG Tablet TAKE ONE TABLET BY MOUTH DAILY 10/06/20 Yes Carson Michel MD potassium chloride SA (KLORCON M) 20 MEQ Tablet Controlled Release Take 1 Tab by mouth daily. 11/12/20 Yes Connor Yuan APN, RECOATING MACHINE OPERATOR rivaroxaban (XARELTO) 20 MG Tablet Take 20 mg by mouth daily (with dinner). Take with food. Yes Provider, MD Nica There are no discontinued medications. I have reviewed the home medication list with the family and have reconciled discrepancies. The list is accurate to the best of my knowledge. Smoking Status: Social History Tobacco Use ??? Smoking status: Never Smoker ??? Smokeless tobacco: Never Used Substance Use Topics ??? Alcohol use: No ??? Drug use: No Smoking Cessation Counseling Given: no Health Care Maintenance: Health Maintenance Due Topic Date Due ??? Pneumococcal Immunization (0-64 years) (1 of 1 - PPSV23) Never done ??? SARS-COV-2 Immunization (1) Never done ??? Zoster Immunization (1 of 2) Never done ??? Colorectal Cancer Screening Never done ??? Dilated Eye Exam 07/18/2019 ??? Pap Smear 06/06/2020 ??? Mammogram 10/17/2020 Orders Pended: no The following BPA's have been addressed with the patient today: Colonoscopy, Mammogram and Pap were declined. * Oswaldo Serrano MD - 2020 11:30 AM CST CHIEF COMPLAINT: Hypertension. SUBJECTIVE: Patient is here today to discuss her blood pressures. She has really up and down blood pressures. She uses a wrist cuff at home. She is seeing Dr[facility]stora [facility] at [facility]. She is on Synthroid 50 mcg and has not had a thyroid checked since last year. It was normal then. B12 is low normal. She is on a multivitamin which has B12 in it. I have reviewed all the systems. They are negative except as mentioned in HPI. OBJECTIVE: VITAL Signs: Blood pressure 108/60, pulse 82, temperature 98.1, weight 291. GENERAL: Patient is talkative, cooperative, appropriately dressed. CHEST: Clear to auscultation bilaterally. No wheezing. HEART: S1, S2. No murmurs. NECK: No carotid bruits auscultated. ASSESSMENT/PLAN: 1. Hypertension. I gave her a blood pressure cuff and a log book and told her to update Dr. Pastora Flores on readings. Told her to get an arm cuff with new batteries. We will continue our regimen for now. 2. Hypothyroidism. We will check a TSH. 3. B12 deficiency. We will check a level. 4. This patient is to follow-up in 6 weeks. IJN: [id number] documented in this encounter Plan of Treatment Upcoming Encounters Date Type Department Care Team (Late st Contact Info) Description 10/08/2024 2:15 PM ADON Office Visit [facility] #2 [place] [address] Orlin Urbina DIRECTOR FIELD SERVICES, RECOATING MACHINE OPERATOR [address]2 [place] [address] 10/18/2024 2:15 PM ADON [facility] 1 [place] [address] Oswaldo Serrano MD #[address] [address] Discharge Disposition: Discharged to home or Selfcare 11/29/2024 2:30 PM ADON [facility] Visit [facility] #2 [place] [address] Oswaldo Serrano MD #2 [facility] [address] [place] [address] 11/30/2024 3:00 PM ADON Office Visit [facility] - Endocr[facility]ology - [place] [address] [place] [address] Ok Jorge MD #2 [facility] [address] [place] [address] documented as of this encounter Results * (ABNORMAL) CREATINE KINASE (CK) TOTAL (2020 1:28 PM ADON) CK (CPK) 210(H) 26 - 192 U/L 2020 3:15 PM ADON [facility] Blood Venipuncture / Unknown 2020 1:28 PM ADON 2020 1:46 PM ADON Oswaldo Serrano MD HEMATOLOGY ORDERABLES Final Result Performing Organization Address City/[facility]/ZIP Co de Phone Number [facility] [address]1 [place] [address] * VITAMIN B12 (2020 1:28 PM ADON) VITAMIN B12 355 243 - 894 pg/mL 2020 2:30 PM ADON [facility] Blood Venipuncture / Unknown 2020 1:28 PM ADON 2020 1:46 PM ADON Oswaldo Serrano MD CHEMISTRY ORDERABLES Final Result [facility] [address]1 [place] [address] * THYROID STIMULATING HORMONE (TSH) (2020 1:28 PM ADON) TSH 2.180 0.270 - 4.200 mIU/L 2020 3:15 PM ADON [facility] Blood Venipuncture / Unknown 2020 1:28 PM ADON 2020 1:46 PM ADON Oswaldo Serrano MD CHEMISTRY ORDERABLES Final Result [facility] #[address] [place] [address] documented in this encounter Visit Diagnoses Diagnosis Essential hypertension- Primary Unspecified essential hypertension Hypothyroidism, unspecified type B12 deficiency Other B-complex deficiencies Elevated CK Other nonspecific abnormal serum enzyme levels documented in this encounter Additional Health Concerns Assessment Noted Time PHQ-9 Depression Total Score: 2 07/18/20 20 4:26 PM CDT documented as of this encounter Care Teams Driver Messenger Relationship Specialty Start Date End Date Oswaldo Serrano MD #2 [facility] [address] PCP - General Family Medicine 05/19/17 Angel Crowe DPM #2 [facility] [address] Consulting Physician Podiatry 06/16/17 Mora Fritz Behavioral Health Navigator 06/15/18 documented as of this encounter
--- OUTSIDE RECORDS SUMMARY | 2024-10-07 00:27 | XMS_ITS | Encounter Summary ---
Author Organization [facility] Address [address] [place] [address] Phone Care Team Providers Care Chip Applying Machine Tender Name Role Phone Oswaldo Serrano MD Primary Care Provider [phone] Angel Crowe DPCiara Unavailable [phone] Mora Fritz Unavailable Unavailable Ok Jorge MD Unavailable Orlin Urbina APRN, CYLINDER HANDLER Unavailable Reason for Visit * Reason Comments Medication Refill Encounter Details Date Type Department Care Team (Late st Contact Info) Description 01/21/2021 Refill [facility] - [place] #2 [place] [address] Oswaldo Serrano MD #[address] [address] Medication Refill Social History Tobacco Use Types [...] Telephone Encounter - Mica Morales RN - 01/22/2021 12:31 PM CDT Medication failed the protocol, provider to review and approve the medication order if appropriate. Requested Prescriptions Pending Prescriptions Disp Refills omeprazole (PriLOSEC) 20 MG CAPSULE DELAYED RELEASE [Pharmacy Med Name: OMEPRAZOLE DR 20 MG*CAP MICHAEL] 90 Capsule 3 Sig: TAKE ONE CAPSULE BY MOUTH DAILY Gastroenterology: Antiulcer - Proton Pump Inhibitors Passed - 01/21/2021 12:27 PM Passed - Valid encounter within last 12 months Past Office Visits Recent Outpatient Visits 1 week ago UTI symptoms [facility] Family Medicine - Connor Hutchinson APN, CYLINDER HANDLER 1 month ago Essential hypertension [facility] Family [facility] - Oswaldo Moreno MD 1 month ago Intractable cluster headache syndrome, unspecified chronicity pattern [facility] Family [facility] - Oswaldo Moreno MD 1 month ago Subacute maxillary sinusitis [facility] Family [facility] - Oswaldo Moreno MD 2 months ago [facility] - Connor Hutchinson APN, CYLINDER HANDLER Upcoming Appointments Future Appointments In [address] [place], [facility] In 1 week Oswaldo Serrano MD [facility] Family Medicine - [facility] In 3 weeks Ok Jorge MD [facility] - Endocrinology [facility], [facility] SONG LYRICIST - Recent and Past Visits Recent Visits Date Type Provider Dept 01/14/21 Office Visit Connor Yuan APN, CYLINDER HANDLER [facility] 12/19/20 Office Visit Oswaldo Serrano MD [facility] 12/18/20 Telemedicine Oswaldo Serrano MD [facility] 12/08/20 Telemedicine Oswaldo Serrano MD [facility] 11/07/20 Telemedicine Connor Yuan APN, CYLINDER HANDLER [facility] 10/09/20 Office Visit Oswaldo Serrano MD [facility] 09/16/20 Telemedicine Oswaldo Serrano MD [facility] 07/18/20 Office Visit Connor Yuan APN, CYLINDER HANDLER [facility] 07/11/20 Telemedicine Connor Yuan APN, CYLINDER HANDLER [facility] 06/09/20 Office Visit Oswaldo Serrano MD [facility] Showing recent visits within past 460 days with a meds authorizing provider and meeting all other requirements Future Appointments Date Type Provider Dept 02/02/21 Appointment Oswaldo Serrano MD [facility] Showing future appointments within next 90 days with a meds authorizing provider and meeting all other requirements DOK 100 MG Capsule [Pharmacy Med Name: DOK 100 MG CAP MECHE] 60 Capsule 2 Sig: TAKE ONE CAPSULE BY MOUTH TWICE DAILY Not Delegated - Over the Counter: OTC Failed - 01/21/2021 12:27 PM Failed - This refill cannot be delegated Passed - Valid encounter within last 12 months Past Office Visits Recent Outpatient Visits 1 week ago [facility], CYLINDER HANDLER 1 month ago Essential [facility] [facility] 1 month ago Intractable cluster headache syndrome, unspecified chronicity pattern [facility]al[facility] A, MD 1 month ago Subacute maxillary sinusitis [facility] - Oswaldo Moreno MD 2 months ago Chest congestion [facility] Medical [facility] Family Medicine - Connor Hutchinson APN, CYLINDER HANDLER Upcoming Appointments Future Appointments In [address], [facility] In 1 week Oswaldo Serrano MD [facility] Ok Jorge MD [facility] SONG LYRICIST - Recent and Past Visits Recent Visits Date Type Provider Dept 01/14/21 Office Visit Connor Yuan APN, YUDI [facility] 12/19/20 Office Visit Oswaldo Serrano MD [facility] 12/18/20 Telemedicine Oswaldo Serrano MD [facility] 12/08/20 Telemedicine Oswaldo Serrano MD [facility] 11/07/20 Telemedicine Connor Yuan APN, YUDI [facility] [place] 10/09/20 Office Visit Oswaldo Serrano MD [facility] 09/16/20 Telemedicine Oswaldo Serrano MD [facility] 07/18/20 Office Visit Connor Yuan APN, YUDI [facility] 07/11/20 Telemedicine Connor Yuan APN, YUDI [facility] [place] 06/09/20 Office Visit Oswaldo Serrano MD [facility] Showing recent visits within past 460 days with a meds authorizing provider and meeting all other requirements Future Appointments Date Type Provider Dept 02/02/21 Appointment Oswaldo Serrano MD [facility] Showing future appointments within next 90 days with a meds authorizing provider and meeting all other requirements documented in this encounter Plan of Treatment Upcoming Encounters Date Type Department Care Team (Late st Contact Info) Description 10/08/2024 2:15 PM REPORTING PROCESS CONSULTANT Office Visit [facility] #2 [place] [address] Orlin Urbina APRN, CYLINDER HANDLER #2 [facility] [place] [address] 10/18/2024 2:15 PM REPORTING PROCESS CONSULTANT Appointment [facility] 1 [place] [address] Oswaldo Serrano MD #[address] [address] Discharge Disposition: Discharged to home or Selfcare 11/29/2024 2:30 PM REPORTING PROCESS CONSULTANT Office Visit [facility] - [place] #2 [place] [address] Oswaldo Serrano MD #[address] [address] 11/30/2024 3:00 PM REPORTING PROCESS CONSULTANT Office Visit [facility] - [place] #2 [place] [address] Ok Jorge MD #[address] [address] documented as of this encounter Visit Diagnoses Not on filedocumented in this encounter Additional Health Concerns Infection Onset Date Last Indicated Resolved Time COVID - 19 07/28/2021 07/29/2021 08/17/2021 12:1 6 AM REPORTING PROCESS CONSULTANT Assessment Noted Time PHQ-9 Depression Total Score: 2 07/18/20 4:26 PM CDT documented as of this encounter Care Teams Chip Applying Machine Tender Relationship Specialty Start Date End Date Oswaldo Serrano MD #[address] [place] [address] PCP - General Family Medicine 05/19/17 Angel Crowe DPM [address] [address] Consulting Physician Podiatry 06/16/17 Mora Fritz [place] Behavioral Health Navigator 06/15/18 Ok Jorge MD #[address] [address] Consulting Physician Endocrinology 05/12/22 Orlin Urbina APRN, CYLINDER HANDLER #2 [place] [address] Nurse Practitioner Advanced Practice Nurse 11/09/22 documented as of this encounter
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
--- OUTSIDE RECORDS SUMMARY | 2024-10-07 00:27 | XMS_ITS | Encounter Summary ---
Author Organization [facility] Address [address] [place] [address] Phone Care Team Providers Care Color Control Supervisor Name Role Phone Oswaldo Serrano MD Primary Care Provider Angel Crowe DPM Unavailable Mora Fritz Unavailable Unavailable Encounter Details Date Type Department Care Team (Late st Contact Info) Description 12/18/2020 Telephone [facility] - Family Medicine [facility] #2 [place] [address] Oswaldo Serrano MD #[address] [address] Social History Tobacco Use Types Packs/Day Years [...] COVID-19? No / Unsure 12/15/2020 3:47 PM ELECTRIC METER INSTALLER documented as of this encounter Miscellaneous Notes * Telephone Encounter - Oswaldo Serrano MD - 12/18/2020 1:42 PM ELECTRIC METER INSTALLER Please add her to my schedule for 11:30 AM tomorrow (Tuesday). Thanks! TRIC METER INSTALLER documented in this encounter Plan of Treatment Upcoming Encounters Date Type Department Care Team (Late st Contact Info) Description 10/08/2024 2:15 PM ELECTRIC METER INSTALLER Office Visit [facility] UROLOGY #2 [place] [address] Orlin Urbina, STATE FEDERAL RELATIONS DEPUTY DIRECTOR, OUTREACH REP #2 [place] [address] 10/18/2024 2:15 PM ELECTRIC METER INSTALLER Appointment [facility] Mammography 1 [place] [address] Oswaldo Serrano MD #[address] [address] Discharge Disposition: Discharged to home or Selfcare 11/29/2024 2:30 PM ELECTRIC METER INSTALLER [facility] #2 [place] [address] Oswaldo Serrano MD #2 [facility] [address] [place] [address] 11/30/2024 3:00 PM ELECTRIC METER INSTALLER Office Visit [facility] - Endocrinology - [place] #2 [place] [address] Ok Jorge MD #[address] [address] documented as of this encounter Visit Diagnoses Not on filedocumented in this encounter Additional Health Concerns Assessment Noted Time PHQ-9 Depression Total Score: 2 07/18/20 20 4:26 PM CDT documented as of this encounter Care Teams Color Control Supervisor Relationship Specialty Start Date End Date Oswaldo Serrano MD #[address] [address] PCP - General Family Medicine 05/19/17 Angel Crowe DPM #[address] [address] Consulting Physician Podiatry 06/16/17 Mora Fritz Behavioral Health Navigator 06/15/18 documented as of this encounter
--- OUTSIDE RECORDS SUMMARY | 2024-10-07 00:27 | XMS_ITS | Encounter Summary ---
Author Organization [facility] Address [address] [place] [address] Phone Care Team Providers Care Community Action Worker Name Role Phone Oswaldo Serrano MD Primary Care Provider [phone] Angel Crowe DPM Unavailable Mora Fritz Unavailable Unavailable Ok Jorge MD Unavailable Orlin Urbina APRN, STEAM SHOVEL ENGINEER Unavailable + [phone] Reason for Visit * Reason Comments Medication Refill Encounter Details Date Type Department Care Team (Late st Contact Info) Description 12/02/2020 Refill [facility] - [place] #2 [place] [address] Connor Yuan APRN, STEAM SHOVEL ENGINEER #[address] [address] Medication Refill Social History Tobacco Use Types [...] COVID-19? No / Unsure 11/28/2020 2:56 PM MANAGER STAFFING documented as of this encounter Miscellaneous Notes * Telephone Encounter - Connie Gamez RN - 12/02/2020 11:24 AM CST Refused as patient needs lab work done. Connie RN GER STAFFING documented in this encounter Plan of Treatment Upcoming Encounters Date Type Department Care Team (Late st Contact Info) Description 10/08/2024 2:15 PM MANAGER STAFFING Office Visit [facility] UROLOGY #2 [place] [address] Orlin Urbina, BASTER HAND, STEAM SHOVEL ENGINEER #2 [place] [address] 10/18/2024 2:15 PM MANAGER STAFFING Appointment [facility] M[facility] 1 [place] [address] Oswaldo Serrano MD #[address] [address] Discharge Disposition: Discharged to home or Selfcare 11/29/2024 2:30 PM MANAGER STAFFING Office Visit [facility] - Family Medicine [facility] #2 [place] [address] Oswaldo Serrano MD #[address] [address] 11/30/2024 3:00 PM MANAGER STAFFING Office Visit [facility] Endocrinology [facility] #2 [place] [address] Ok Jorge MD #[address] [address] documented as of this encounter Visit Diagnoses Diagnosis Vitamin D deficiency Unspecified vitamin D deficiency documented in this encounter Additional Health Concerns Infection Onset Date Last Indicated Resolved Time COVID - 19 07/28/2021 07/29/2021 08/17/2021 12:1 6 AM MANAGER STAFFING Assessment Noted Time PHQ-9 Depression Total Score: 2 07/18/20 4:26 PM CDT documented as of this encounter Care Teams Community Action Worker Relationship Specialty Start Date End Date Oswaldo Serrano MD #[address] [address] PCP - General Family Medicine 05/19/17 Angel Crowe DPM #[address] [address] Consulting Physician Podiatry 06/16/17 Mora Fritz [place] Behavioral Health Navigator 06/15/18 Ok Jorge MD #[address] [address] Consulting Physician Endocrinology 05/12/22 Orlin Urbina, BASTER HAND, STEAM SHOVEL ENGINEER #2 [place] [address] Nurse Practitioner Advanced Practice Nurse 11/09/22 documented as of this encounter
--- OUTSIDE RECORDS SUMMARY | 2024-10-07 00:27 | XMS_ITS | Encounter Summary ---
Author Organization [employer] Care Team Providers Care Industrial Security Analyst Name Role Phone Oswaldo Serrano MD Primary Care Provider [phone] Angel Crowe DPM Unavailable [phone] Mora Fritz Unavailable Unavailable Encounter Details Date Type Department Care Team (Latest Contact Info) Description 12/15/2020 Travel Social History Tobacco Use Types Packs/Day [...] COVID-19? No / Unsure 12/15/2020 3:47 PM MECHANICAL MANUFACTURING TECHNICIAN documented as of this encounter Plan of Treatment Upcoming Encounters Date Type Department Care Team (Late st Contact Info) Description 10/08/2024 2:15 PM MECHANICAL MANUFACTURING TECHNICIAN Office Visit [facility] UROLOGY #2 [place] [phone] Orlin Urbina, MASTER WELDER, TECHNICAL SERVICE REP #2 [place] [address] 10/18/2024 2:15 PM MECHANICAL MANUFACTURING TECHNICIAN Appointment [facility] 1 [place] [address] Oswaldo Serrano MD #2 [facility] [address] [place] [address] Discharge Disposition: Discharged to home or Selfcare 11/29/2024 2:30 PM MECHANICAL MANUFACTURING TECHNICIAN [facility] - [place] #2 [place] [address] Oswaldo Serrano MD #2 [facility] [address] [place] [address] 11/30/2024 3:00 PM MECHANICAL MANUFACTURING TECHNICIAN Office Visit [facility] End[facility]ology - [place] #2 [place] [address] Ok Jorge MD #2 [facility] [address] [place] [address] documented as of this encounter Visit Diagnoses Not on filedocumented in this encounter Additional Health Concerns Assessment Noted Time PHQ-9 Depression Total Score: 2 07/18/20 20 4:26 PM CDT documented as of this encounter Care Teams Industrial Security Analyst Relationship Specialty Start Date End Date Oswaldo Serrano MD #[address] [address] PCP - General Family Medicine 05/19/17 Angel Crowe DPM #[address] [address] Consulting Physician Podiatry 06/16/17 Mora Fritz Behavioral Health Navigator 06/15/18 documented as of this encounter
--- OUTSIDE RECORDS SUMMARY | 2024-10-07 00:27 | XMS_ITS | Encounter Summary ---
Author Organization [facility] Address [address] [place] [address] Phone Care Team Providers Care Associate Trainer Name Role Phone Oswaldo Serrano MD Primary Care Provider [phone] Angel Crowe DPM Unavailable [phone] Mora Fritz Unavailable Unavailable Ok Jorge MD Unavailable Orlin Urbina APRN, ELECTRONICS TECHNICIAN Unavailable + [phone] Reason for Visit * Reason Comments Medication Refill Encounter Details Date Type Department Care Team (Late st Contact Info) Description 11/28/2020 Refill [facility] - [place] #2 [place] [address] Connor Yuan APRN, ELECTRONICS TECHNICIAN #[address] [address] Medication Refill Social History Tobacco Use Types [...] COVID-19? No / Unsure 11/28/2020 2:56 PM ANGLESMITH HELPER documented as of this encounter Plan of Treatment Upcoming Encounters Date Type Department Care Team (Late st Contact Info) Description 10/08/2024 2:15 PM ANGLESMITH HELPER Office Visit [facility] UROLOGY #2 [place] [address] Orlin Urbina, MANAGER CONCRETE, ELECTRONICS TECHNICIAN #2 [place] [address] 10/18/2024 2:15 PM ANGLESMITH HELPER Appointment [facility] Mammography 1 [place] [address] Oswaldo Serrano MD #[address] [address] Discharge Disposition: Discharged to home or Selfcare 11/29/2024 2:30 PM ANGLESMITH HELPER Office Visit [facility] #2 [place] [address] Oswaldo Serrano MD #[address] [address] 11/30/2024 3:00 PM ANGLESMITH HELPER Office Visit [facility] - Endocr[facility]ology - [place] #2 [place] [address] Ok Jorge MD #2 [facility] [address] [place] [address] documented as of this encounter Visit Diagnoses Diagnosis Vitamin D deficiency Unspecified vitamin D deficiency documented in this encounter Additional Health Concerns Infection Onset Date Last Indicated Resolved Time COVID - 19 07/28/2021 07/29/2021 08/17/2021 12:1 6 AM ANGLESMITH HELPER Assessment Noted Time PHQ-9 Depression Total Score: 2 07/18/20 20 4:26 PM CDT documented as of this encounter Care Teams Associate Trainer Relationship Specialty Start Date End Date Oswaldo Serrano MD #[address] [address] PCP - General Family Medicine 05/19/17 Angel Crowe DPM #[address] [address] Consulting Physician Podiatry 06/16/17 Mora Fritz [place] Behavioral Health Navigator 06/15/18 Ok Jorge MD #[address] [address] Consulting Physician Endocrinology 05/12/22 Orlin Urbina APRN, ELECTRONICS TECHNICIAN #2 [place] [address] Nurse Practitioner Advanced Practice Nurse 11/09/22 documented as of this encounter
--- OUTSIDE RECORDS SUMMARY | 2024-10-07 00:27 | XMS_ITS | Encounter Summary ---
Author Organization [facility] Address [address] [place] [address] Phone Care Team Providers Care Hair Cutter Name Role Phone Oswaldo Serrano MD Primary Care Provider [phone] Angel Crowe DPM Unavailable Mora Fritz Unavailable Unavailable Reason for Visit * Reason Onset Date Comments Follow-up 12/15/2020 Still has a head ache Encounter Details Date Type Department Care Team (Late st Contact Info) Description 12/15/2020 Telephone [facility] #2 [place] [address] Oswaldo Serrano MD #[address] [address] Follow-up (Still has a headache) Social History Tobacco Use Types Packs/Day Years [...] COVID-19? No / Unsure 12/15/2020 3:47 PM REHABILITATION MANAGER documented as of this encounter Miscellaneous Notes * Telephone Encounter - Oswaldo Serrano MD - 12/18/2020 9:50 AM REHABILITATION MANAGER Thanks for scheduling her! BILITATION MANAGER * Telephone Encounter - Mica Lutz RN - 12/18/2020 8:32 AM CST Just received reply as I only work PRN and you routed this to me instead of the pool. Called Dilia, , and patient still having headaches. Telephone visit scheduled for 1300 today and phone # in appt notes. BILITATION MANAGER * Telephone Encounter - Oswaldo Serrano MD - 12/16/2020 12:48 AM REHABILITATION MANAGER Schedule her for telephone visit with me this week to discuss this. Thanks! BILITATION MANAGER * Telephone Encounter - Mica Lutz RN - 12/15/2020 4:08 PM CST SisterDilia calling. On PRD. Was seen via video visit on 12/08/20 and placed on Z-pack and flonase for possible sinus infection. Her main symptom was a headache. Took last pill this morning. States the headache has not improved. The pain is not constant, comes and goes. States her teeth and gums also hurt. Pain starts in her eyes and radiates to ears,neck and teeth. She has the headache right now and rating it 7-8/10. Has been taking OTC sinus pressure/pain medication a well and gets some relief, but doesn't last long. Still has mild runny nose. Asking if she needs another COVID test or chest xray?? Please advise. Thanks. BILITATION MANAGER documented in this encounter Plan of Treatment Upcoming Encounters Date Type Department Care Team (Late st Contact Info) Description 10/08/2024 2:15 PM REHABILITATION MANAGER Office Visit [facility] UR[facility]Y #2 [place] [address] Orlin Urbina APRN, YOUTH SERVICES LIBRARIAN #2 [place] [address] 10/18/2024 2:15 PM REHABILITATION MANAGER [facility]ointment [facility] 1 [place] [address] Oswaldo Serrano MD #[address] [address] Discharge Disposition: Discharged to home or Selfcare 11/29/2024 2:30 PM REHABILITATION MANAGER Office Visit [facility] - [facility] Medicine - [place] #2 [place] [address] Oswaldo Serrano MD #[address] [address] 11/30/2024 3:00 PM REHABILITATION MANAGER Office Visit [facility] - Endocrinology - [place] #2 [place] [address] Ok Jorge MD #2 [facility] [address] [place] [address] documented as of this encounter Visit Diagnoses Not on filedocumented in this encounter Additional Health Concerns Assessment Noted Time PHQ-9 Depression Total Score: 2 07/18/20 20 4:26 PM CDT documented as of this encounter Care Teams Hair Cutter Relationship Specialty Start Date End Date Oswaldo Serrano MD #2 [facility] [address] [place] [address] PCP - General Family Medicine 05/19/17 Angel Crowe DPM #2 [facility] [address] [place] [address] Consulting Physician Podiatry 06/16/17 Mora Fritz Behavioral Health Navigator 06/15/18 documented as of this encounter
--- OUTSIDE RECORDS SUMMARY | 2024-10-07 00:27 | XMS_ITS | Encounter Summary ---
Author Organization [facility] Address [address] [place] [address] Phone Care Team Providers Care Machine Captain Name Role Phone Oswaldo Serrano MD Primary Care Provider Angel Crowe DPM Unavailable [phone] Mora Fritz Unavailable Unavailable Reason for Visit * Reason Comments Sinus Infection Encounter Details Date Type Department Care Team (Late st Contact Info) Description 12/08/2020 3:45 PM SALES MANAGER [place] Telemedicine [facility] - [facility] #2 [place] [address] Oswaldo Serrano MD #[address] [address] Subacute maxillary sinusitis (Primary Dx) Social History Tobacco Use Types [...] COVID-19? No / Unsure 12/08/2020 2:50 PM SALES MANAGER [place] documented as of this encounter Progress Notes * Oswaldo Serrano MD - 12/08/2020 3:45 PM CST Patient was assessed via telephone for a duration of 7 minutes. Patient verbally consented for thisservice to be performed and billed. CC: Dizziness. S: Went to the Book Sewing Machine Operator today. [place] dizzy today. BS around 180. Was told BP fine. Has some phlegm, has BIRCH from her eyes all the way back. Denies any loss of taste or smell, fever, nausea, or diarrhea. Caregiver on phone assisting with call. O: Psych: alert & oriented. A/P: 1. Sinusitis - Z-pack & Flonase nasal spray. 2. F/U with me in 1 month; get labs done. S MANAGER [place] documented in this encounter Plan of Treatment Upcoming Encounters Date Type Department Care Team (Late st Contact Info) Description 10/08/2024 2:15 PM SALES MANAGER [place] Office Visit [facility]Y #2 [place] [address] Orlin Urbina, SOFTWARE PERFORMANCE ENGINEER, LICENSED LAND SURVEYOR #2 [place] [address] 10/18/2024 2:15 PM SALES MANAGER [place] Appointment [facility] 1 [facility] [address] Oswaldo Serrano MD #[address] [address] Discharge Disposition: Discharged to home or Selfcare 11/29/2024 2:30 PM SALES MANAGER [place] Office Visit [facility] #2 [place] [address] Oswaldo Serrano MD #[address] [address] 11/30/2024 3:00 PM SALES MANAGER [place] Office Visit [facility] - Endocrinology - [place] #2 [place] [address] Ok Jorge MD #[address] [address] documented as of this encounter Visit Diagnoses Diagnosis Subacute maxillary sinusitis- Primary Acute maxillary sinusitis documented in this encounter Additional Health Concerns Assessment Noted Time PHQ-9 Depression Total Score: 2 07/18/20 20 4:26 PM CDT documented as of this encounter Care Teams Machine Captain Relationship Specialty Start Date End Date Oswaldo Serrano MD #[address] [address] PCP - General Family Medicine 05/19/17 Angel Crowe DPM #[address] [address] Consulting Physician Podiatry 06/16/17 Mora Fritz Behavioral Health Navigator 06/15/18 documented as of this encounter
--- OUTSIDE RECORDS SUMMARY | 2024-10-07 00:27 | XMS_ITS | Encounter Summary ---
Author Organization [facility] Address [address] [place] [address] Phone Care Team Providers Care Manager Packaging Name Role Phone Oswaldo Serrano MD Primary Care Provider Angel Crowe DPM Unavailable [phone] Mora Fritz Unavailable Unavailable Encounter Details Date Type Department Care Team (Late st Contact Info) Description 2020 Telephone [facility] - Family Medicine [facility] #2 [place] [address] Oswaldo Serrano MD #[address] [address] Social History Tobacco Use Types Packs/Day Years [...] COVID-19? No / Unsure 2020 11:28 AM TITLE ONE READING TEACHER documented as of this encounter Miscellaneous Notes * Telephone Encounter - Oswaldo Serrano MD - 2020 3:20 PM TITLE ONE READING TEACHER DONE. E ONE READING TEACHER documented in this encounter Plan of Treatment Upcoming Encounters Date Type Department Care Team (Late st Contact Info) Description 10/08/2024 2:15 PM TITLE ONE READING TEACHER Office Visit [facility]Y #2 [place] [address] Orlin Urbina, SUPERVISOR LEAF [employer]ING FABRICATION, BUSINESS RULES ANALYST #2 [place] [address] 10/18/2024 2:15 PM TITLE ONE READING TEACHER Appointment [facility] 1 [place] [address] Oswaldo Serrano MD #[address] [address] Discharge Disposition: Discharged to home or Selfcare 11/29/2024 2:30 PM TITLE ONE READING TEACHER Office Visit [facility] - Family Medicine [facility] #2 [place] [address] Oswaldo Serrano MD #[address] [address] 11/30/2024 3:00 PM TITLE ONE READING TEACHER Office Visit [facility] - Endocrinology - [place] #2 [place] [address] Ok Jorge MD #2 [facility] [address] [place] [address] documented as of this encounter Visit Diagnoses Not on filedocumented in this encounter Additional Health Concerns Assessment Noted Time PHQ-9 Depression Total Score: 2 07/18/20 20 4:26 PM CDT documented as of this encounter Care Teams Manager Packaging Relationship Specialty Start Date End Date Oswaldo Serrano MD #2 [facility] [address] [place] [address] PCP - General Family Medicine 05/19/17 Angel Crowe DPM #2 [facility] [address] [place] [address] Consulting Physician Podiatry 06/16/17 Mora Fritz Behavioral Health Navigator 06/15/18 documented as of this encounter
--- OUTSIDE RECORDS SUMMARY | 2024-10-07 00:27 | XMS_ITS | Encounter Summary ---
Author Organization [facility] Address [address] [place] [address] Phone Care Team Providers Care Children'S Librarian Name Role Phone Oswaldo Serrano MD Primary Care Provider [phone] Angel Crowe DPM Unavailable Mora Fritz Unavailable Unavailable Reason for Visit * Reason Onset Date Comments Results 12/13/2020 Encounter Details Date Type Department Care Team (Late st Contact Info) Description 12/13/2020 Telephone [facility] - Primary Care - [place] [address] [address] Connor Yuan, JOHN, AIR VALVE REPAIRER #[address] [address] Results Social History Tobacco Use [...] COVID-19? No / Unsure 12/13/2020 11:23 AM TRANSPORTATION DRIVER documented as of this encounter Miscellaneous Notes * Telephone Encounter - Connie Gamez RN - 12/15/2020 8:44 AM CST Called and spoke with Peg womack of patient PRD regarding results Vitamin D is still low. Recommend three months of WEEKLY therapy and then recheck again. Orders entered. Peg PRD verbalizesunderstanding. SPORTATION DRIVER * Telephone Encounter - Connor Yuan APN, CNP - 12/13/2020 3:08 PM CST Please call patient/POA. Vitamin D is still low. Recommend three months of WEEKLY therapy and then recheck again. Orders entered. SPORTATION DRIVER documented in this encounter Plan of Treatment Upcoming Encounters Date Type Department Care Team (Late st Contact Info) Description 10/08/2024 2:15 PM TRANSPORTATION DRIVER Office Visit [facility] #2 [place] [address] Orlin Urbina APRN, AIR VALVE REPAIRER #2 [place] [address] 10/18/2024 2:15 PM TRANSPORTATION DRIVER Appointment [facility] M[facility] 1 [place] [address] Oswaldo Serrano MD #2 [facility] [address] [place] [address] Discharge Disposition: Discharged to home or Selfcare 11/29/2024 2:30 PM TRANSPORTATION DRIVER Office Visit [facility] Medical [facility] - Family Medicine - [place] #2 [place] [address] Oswaldo Serrano MD #2 [facility] [address] [place] [address] 11/30/2024 3:00 PM TRANSPORTATION DRIVER Office Visit [facility] Medical [facility] - Endocrinology - [place] #2 [place] [address] Ok Jorge MD #[address] [address] documented as of this encounter Results * VITAMIN D, 25 HYDROXY TOTAL (02/27/2021 11:19 AM CDT) Pathologist [facility] VITAMIN D, 25 HYDROX 33 >=30 ng/mL 02/27/2021 1:51 PM CDT [facility] Blood Venipuncture / Unknown 02/27/2021 11:19 AM CDT 02/27/2021 11:19 AM CDT Narrative [facility] - 02/27/2021 1:51 PM CDT Published reference ranges for Vitamin D vary depending on time and place and method of testing, and on patient's age, sex, ethnicity and levels of other measured analytes such as parathormone, calcium and phosphorus. ??The result should be evaluated in conjunction with clinical findings and suspicions. [employer] and [employer]ocrine Clinical Practice Guidelines: Status Vitamin D levels (ng/mL) Deficient <=20 At risk of inadequacy 21-29 Sufficient 30-100 Centers of Disease Control and Prevention Guidelines: Status Vitamin D levels (ng/mL) Deficient <13 At risk of inadequacy 13-19 Sufficient 20-50 Possibly harmful >50 References: [employer], 2010 Dietary reference intakes for calcium and vitamin D. Guidry [place]: ??The National Academies Press. Eve M, Forrest N, Maksim BIRCH, et al., Evaluation, treatment, and prevention of Vitamin D deficiency: an Endocrinology Clinical Practice Guideline. JCEM 2011 96: 7 5769-6357. Faiza A, Manjinder C, Tyson Rockwell, et al., Vitamin D Status: ??[place], 2000- 1005, [facility] data brief, no. 59, MD Claudia: ??National Center for Health Statistics. 2010. Connor Yuan APRN, AIR VALVE REPAIRER CHEMISTRY ORDERA BLES Final Result [facility] #1 [place] [address] documented in this encounter Visit Diagnoses Diagnosis Vitamin D deficiency Unspecified vitamin D deficiency documented in this encounter Additional Health Concerns Assessment Noted Time PHQ-9 Depression Total Score: 2 07/18/20 20 4:26 PM CDT documented as of this encounter Care Teams Children'S Librarian Relationship Specialty Start Date End Date Oswaldo Serrano MD #[address] [address] PCP - General Family Medicine 05/19/17 Angel Crowe DPM #[address] [address] Consulting Physician Podiatry 06/16/17 Mora Fritz Behavioral Health Navigator 06/15/18 documented as of this encounter
--- OUTSIDE RECORDS SUMMARY | 2024-10-07 00:27 | XMS_ITS | Encounter Summary ---
Author Organization [facility] Address [address] [place] [address] Phone Care Team Providers Care Animal Maintenance Supervisor Name Role Phone Oswaldo Serrano MD Primary Care Provider [phone] Angel Crowe DPM Unavailable Mora Fritz Unavailable Unavailable Reason for Visit * Reason Onset Date Comments Medication Refill 12/04/2020 humalog Encounter Details Date Type Department Care Team (Late st Contact Info) Description 12/04/2020 Refill [facility] - Family Medicine [facility] #2 [place] [address] Oswaldo Serrano MD #[address] [address] Medication Refill (humalog) Social History Tobacco Use Types Packs/Day Years [...] COVID-19? No / Unsure 11/28/2020 2:56 PM TECHNOLOGY TEACHER documented as of this encounter Miscellaneous Notes * Telephone Encounter - Ok Jorge MD - 12/04/2020 12:51 PM CST Rx sent NOLOGY TEACHER * Telephone Encounter - Ynes Zuniga RN - 12/04/2020 11:26 AM TECHNOLOGY TEACHER Refill request received. Order pended. Requested Prescriptions Pending Prescriptions Disp Refills ??? insulin lispro (HumaLOG) 100 UNIT/ML Solution 20 mL 2 Sig: INJECT 12 UNITS AT BREKFAST, 6 UNITS AT LUNCH AND 12 UNITS AT DINNER --- ISF OF 1:25 UP TO 40 UNITS PER DAY Next appt: 12/15/2020 NOLOGY TEACHER * Telephone Encounter - Ynes Klein - 12/04/2020 10:22 AM CST Patient out of insulin humalog today Pharmacy told patient no response from office no request received - relayed to Dilia neff) Received: []FAX [x]TELEPHONE CALL []MYCHART from: []PHARMACY [x]PATIENT/OTHER regarding medication management. Medication name and dose: Requested Prescriptions Pending Prescriptions Disp Refills ??? insulin lispro (HumaLOG) 100 UNIT/ML Solution 20 mL 2 Sig: INJECT 12 UNITS AT BREKFAST, 6 UNITS AT LUNCH AND 12 UNITS AT DINNER --- ISF OF 1:25 UP TO 40 UNITS PER DAY Quantity: (30 day, 90 day, 3 monthly scripts) 90 day Pharmacy preference for this medication: [facility] Outcome: [x]Medication pended, routed to surescripts []Medication refused []Informed caller of refills at pharmacy []Additional message to medication management RN []Verbal authorization for written order to pharmacy []Additional message to provider []Verified medication with pharmacy tere Medication Management NOLOGY TEACHER documented in this encounter Plan of Treatment Upcoming Encounters Date Type Department Care Team (Late st Contact Info) Description 10/08/2024 2:15 PM TECHNOLOGY TEACHER Office Visit [facility] UROLOGY #2 [place] [address] Orlin Urbina, SOAKER HELPER, CHILD PSYCHOLOGIST #2 [place] [address] 10/18/2024 2:15 PM TECHNOLOGY TEACHER [facility] 1 [place] [address] Oswaldo Serrano MD #[address] [address] Discharge Disposition: Discharged to home or Selfcare 11/29/2024 2:30 PM TECHNOLOGY TEACHER [facility] Visit [facility] #2 [place] [address] Oswaldo Serrano MD #[address] [address] 11/30/2024 3:00 PM TECHNOLOGY TEACHER Office Visit [facility] - Endocrinology - [place] #2 [place] [address] Ok Jorge MD #2 [facility] [address] [place] [address] documented as of this encounter Visit Diagnoses Not on filedocumented in this encounter Additional Health Concerns Assessment Noted Time PHQ-9 Depression Total Score: 2 07/18/20 20 4:26 PM CDT documented as of this encounter Care Teams Animal Maintenance Supervisor Relationship Specialty Start Date End Date Oswaldo Serrano MD #2 [facility] [address] [place] [address] PCP - General Family Medicine 05/19/17 Angel Crowe DPM #[address] [address] Consulting Physician Podiatry 06/16/17 Mora Fritz Behavioral Health Navigator 06/15/18 documented as of this encounter
--- OUTSIDE RECORDS SUMMARY | 2024-10-07 00:27 | XMS_ITS | Encounter Summary ---
Author Organization [employer] Care Team Providers Care Electronic Tech Name Role Phone Oswaldo Serrano MD Primary Care Provider [phone] Angel Crowe DPM Unavailable [phone] Mora Fritz Unavailable Unavailable Encounter Details Date Type Department Care Team (Latest Contact Info) Description 11/28/2020 Travel Social History Tobacco Use Types Packs/Day [...] COVID-19? No / Unsure 11/28/2020 2:56 PM MEDICAL TECHNOLOGIST GENERALIST documented as of this encounter Plan of Treatment Upcoming Encounters Date Type Department Care Team (Late st Contact Info) Description 10/08/2024 2:15 PM MEDICAL TECHNOLOGIST GENERALIST Office Visit [facility] UROLOGY #2 [place] [address] Orlin Urbina, PLUMBER'S ASSISTANT, GROCERY STOCK CLERK #2 [place] [address] 10/18/2024 2:15 PM MEDICAL TECHNOLOGIST GENERALIST [facility] 1 [place] [phone] Oswaldo Serrano MD #2 [facility] [address] [place] [address] Discharge Disposition: Discharged to home or Selfcare 11/29/2024 2:30 PM MEDICAL TECHNOLOGIST GENERALIST Office Visit [facility] - Family Medicine - [place] #2 [place] [address] Oswaldo Serrano MD #2 [facility] [address] [place] [address] 11/30/2024 3:00 PM MEDICAL TECHNOLOGIST GENERALIST Office Visit [facility] - Endocrinology - [place] #2 [place] [address] Ok Jorge MD #2 [facility] [address] [place] [address] documented as of this encounter Visit Diagnoses Not on filedocumented in this encounter Additional Health Concerns Assessment Noted Time PHQ-9 Depression Total Score: 2 07/18/20 20 4:26 PM CDT documented as of this encounter Care Teams Electronic Tech Relationship Specialty Start Date End Date Oswaldo Serrano MD #[address] [address] PCP - General Family Medicine 05/19/17 Angel Crowe DPM #[address] [address] Consulting Physician Podiatry 06/16/17 Mora Fritz Behavioral Health Navigator 06/15/18 documented as of this encounter
--- OUTSIDE RECORDS SUMMARY | 2024-10-07 00:28 | XMS_ITS | Encounter Summary ---
Author Organization [email or web address] Care Team Providers Care Tree Puller Name Role Phone Oswaldo Serrano MD Primary Care Provider [phone] Angel Crowe DPM Unavailable [phone] Mora Fritz Unavailable Unavailable Encounter Details Date Type Department Care Team (Latest Contact Info) Description 11/06/2020 Travel Social History Tobacco Use Types Packs/Day [...] or the highest degree you have received? 12th grade 07/11/2020 Sexually Active Control Partners Comments Not Currently [...] have Coronavirus / COVID-19? No / Unsure 11/06/2020 4:20 PM CREDIT OPERATIONS PROCESSOR documented as of this encounter Plan of Treatment Upcoming Encounters Date Type Department Care Team (Late st Contact Info) Description 10/08/2024 2:15 PM CREDIT OPERATIONS PROCESSOR Office Visit [facility] UROLOGY #2 [place] [address] Orlin Urbina APRN, PHARMACY TECH #2 [place] [address] 10/18/2024 2:15 PM CREDIT OPERATIONS PROCESSOR [facility] 1 [place] [address] Oswaldo Serrano MD #[address] [facility] [address] [place] [address] Discharge Disposition: Discharged to home or Selfcare 11/29/2024 2:30 PM CREDIT OPERATIONS PROCESSOR [facility] - Family Medicine - [place] #2 [place] [address] Oswaldo Serrano MD #[address] [facility] [address] [place] [address] 11/30/2024 3:00 PM CREDIT OPERATIONS PROCESSOR Office Visit [facility] - Endocrinology - [place] #2 [place] [address] Ok Jorge MD #[address] [facility] [address] [place] [address] documented as of this encounter Visit Diagnoses Not on filedocumented in this encounter Additional Health Concerns Assessment Noted Time PHQ-9 Depression Total Score: 2 07/18/20 20 4:26 PM CDT documented as of this encounter Care Teams Tree Puller Relationship Specialty Start Date End Date Oswaldo Serrano MD #[address] [address] PCP - General Family Medicine 05/19/17 Angel Crowe DPM #[address] [address] Consulting Physician Podiatry 06/16/17 Mora Fritz Behavioral Health Navigator 06/15/18 documented as of this encounter
--- OUTSIDE RECORDS SUMMARY | 2024-10-07 00:28 | XMS_ITS | Encounter Summary ---
Author Organization [facility] Address [address] [place] [address] Phone Care Team Providers Care Property Portfolio Officer Name Role Phone Oswaldo Serrano MD Primary Care Provider Angel Crowe DPM Unavailable Mora Fritz Unavailable Unavailable Reason for Visit * Reason Comments Overactive Bladder 1 year f/u Encounter Details Date Type Department Care Team (Latest Contact Info) Description 10/29/2020 2:45 PM DIRECTOR OF ADMISSIONS Telemedicine [facility] UR[facility]Y #2 [place] [phone] Carson Michel MD [address] [facility] [address] [place] [address] Nocturnal enuresis (Primary Dx); Vaginitis and vulvovaginitis Discharge Disposition: Discharged to home or Selfcare [...] have Coronavirus / COVID-19? No / Unsure 10/29/2020 2:20 PM DIRECTOR OF ADMISSIONS documented as of this encounter Progress Notes * Carson Michel MD - 10/29/2020 2:45 PM CST Patient was assessed via telephone for a duration of 14 minutes. Patient verbally consented for this service to be performed and billed. HPI: Loretta Penn is a 59 y.o. female evaluated today for nocturnal enuresis. Started on oxybutynin Notes some improvement in daytime incontinence and urgency She notes she still has incontinence at night According to manager home who gives the history, patient has full incontinence episodes Complains of foul smelling urine, but no dysuria She notes itching in the vaginal area No treatment tried Current Outpatient Medications: ??? ASPIR-LOW 81 MG Tablet Delayed Response ??? azithromycin (ZITHROMAX) 250 MG Tablet ??? Blood Glucose Monitoring Suppl Device ??? carvedilol (COREG) 25 MG Tablet ??? desmopressin (DDAVP) 0.2 MG Tablet ??? dilTIAZem (CARDIZEM) 30 MG Tablet ??? diphenhydrAMINE (BENADRYL) 25 MG Tablet ??? ergocalciferol (VITAMIN D) 29881 UNIT Capsule ??? escitalopram (LEXAPRO) 10 MG Tablet ??? fluticasone (FLONASE) 50 MCG/ACT Suspension ??? furosemide (LASIX) 40 MG Tablet ??? Glucose Blood Strip ??? insulin glargine (Lantus) 100 UNIT/ML Solution ??? insulin lispro (HumaLOG) 100 UNIT/ML Solution ??? Insulin Pen Needle (PEN NEEDLES 31GX5/16 ) 31G X 8 MM Misc ??? Insulin Syringe-Needle U-100 (TRUEPLUS INSULIN SYRINGE) 31G X 5/16 0.5 ML Misc ??? Lancets Misc ??? levothyroxine (SYNTHROID) 50 MCG Tablet ??? lisinopril (PRINIVIL, ZESTRIL) 5 MG Tablet ??? nortriptyline (PAMELOR) 10 MG Capsule ??? nystatin 871986 UNIT/GM Powder ??? omeprazole (PRILOSEC) 20 MG CAPSULE DELAYED RELEASE ??? oxybutynin (DITROPAN) 5 MG Tablet ??? potassium chloride CR (KLORCON) 10 MEQ Tablet Controlled Release ??? potassium chloride SA (KLORCON M) 20 MEQ Tablet Controlled Release ??? rivaroxaban (XARELTO) 20 MG Tablet The past medical, surgical, family and social histories, and allergies were reviewed and updated asneeded. ROS: All 14 systems reviewed and negative except as mentioned in the HPI. Plan: ICD-10-CM 1. Nocturnal enuresis N39.44 desmopressin (DDAVP) 0.2 MG Tablet BASIC METABOLIC PANEL W/ CALCIUM TOTAL 2. Vaginitis and vulvovaginitis N76.0 nystatin 601787 UNIT/GM Powder Follow Up: Loretta was asked to follow up with Carson Michel MD in 1 month(s). The After Visit Summary is printed and will be mailed to the patient. CTOR OF ADMISSIONS documented in this encounter Plan of Treatment Upcoming Encounters Date Type Department Care Team (Late st Contact Info) Description 10/08/2024 2:15 PM DIRECTOR OF ADMISSIONS Office Visit [facility] #2 [place] [address] Orlin Urbina, TALENT ACQUISITION SOURCER, UNMANNED EQUIPMENT OPERATOR [address] [place] [address] 10/18/2024 2:15 PM DIRECTOR OF ADMISSIONS [facility]ointment [facility] 1 [place] [address] Oswaldo Serrano MD #[address] [address] Discharge Disposition: Discharged to home or Selfcare 11/29/2024 2:30 PM DIRECTOR OF ADMISSIONS Office Visit [facility] [address] [place] [address] Oswaldo Serrano MD #[address] [address] 11/30/2024 3:00 PM DIRECTOR OF ADMISSIONS Office Visit [facility] - Endocrinology [facility] [address] [place] [address] Ok Jorge MD #[address] [address] documented as of this encounter Visit Diagnoses Diagnosis Nocturnal enuresis- Primary Vaginitis and vulvovaginitis Vaginitis and vulvovaginitis, unspecified documented in this encounter Additional Health Concerns Assessment Noted Time PHQ-9 Depression Total Score: 2 07/18/20 20 4:26 PM CDT documented as of this encounter Care Teams Property Portfolio Officer Relationship Specialty Start Date End Date Oswaldo Serrano MD #[address] [address] PCP - General Family Medicine 05/19/17 Angel Crowe DPM #[address] [address] Consulting Physician Podiatry 06/16/17 Mora Fritz [place] Behavioral Health Navigator 06/15/18 documented as of this encounter
--- OUTSIDE RECORDS SUMMARY | 2024-10-07 00:28 | XMS_ITS | Encounter Summary ---
Author Organization [facility] Address [address] [place] [address] Phone Care Team Providers Care Lodging House Keeper Name Role Phone Oswaldo Serrano MD Primary Care Provider [phone] Angel Crowe DPM Unavailable [phone] Mora Fritz Unavailable Unavailable Ok Jorge MD Unavailable Orlin Urbina APRN, OPERATIONS CONTROLLER Unavailable + [phone] Reason for Visit * Reason Comments Medication Refill Encounter Details Date Type Department Care Team (Late st Contact Info) Description 11/26/2020 Refill [facility] - [place] [address] [place] [address] Connor Yuan APRN, OPERATIONS CONTROLLER [address] [address] Medication Refill Social History Tobacco Use Types [...] COVID-19? No / Unsure 11/28/2020 2:56 PM RESIDENTIAL REAL ESTATE ASSISTANT documented as of this encounter Miscellaneous Notes * Telephone Encounter - Connie Gamez RN - 11/26/2020 3:08 PM CST Sent to PCP DENTIAL REAL ESTATE ASSISTANT * Telephone Encounter - Connie Gamez RN - 11/26/2020 3:07 PM CST Per nursing clinical judgement, provider to review and approve the medication(s) order(s) if appropriate. Last OV 11/07/20, F/U 12/08/20, Last Rx 09/11/20 4 capsules with 2 refills take 1 cap once a week Connie DASILVA Requested Prescriptions Pending Prescriptions Disp Refills ergocalciferol (VITAMIN D) 39381 UNIT Capsule [Pharmacy Med Name: VITAMIN D 50,000UNIT CAP STR] 4 Capsule 2 Sig: TAKE ONE CAPSULE BY MOUTH ONCE WEEKLY Off-Protocol Failed - 11/26/2020 1:24 PM Failed - Medication not assigned to a protocol, review manually. Passed - Valid encounter within last 12 months Past Office Visits Recent Outpatient Visits 2 weeks ago Chest congestion [facility] - [place] Yuan, Connor Santos APN, OPERATIONS CONTROLLER 1 month ago Flu-like symptoms [facility] - Oswaldo Moreno MD 2 months ago Chronic joint pain [facility] - Oswaldo Moreno MD 4 months ago Diabetic polyneuropathy associated with type 2 diabetes mellitus (HCC) [facility] - Connor Hutchinson APN, CNP 4 months ago Acute diarrhea [facility] Connor Hutchinson APN, OPERATIONS CONTROLLER Upcoming Appointments Future Appointments In 2 days Ok Jorge MD [facility] In 1 week [facility]al[facility] EXPLOSIVE ORDNANCE DISPOSAL MANAGER - Recent and Past Visits Recent Visits Date Type Provider Dept 11/07/20 Telemedicine Connor Yuan APN, YUDI [facility] 10/09/20 Office Visit Oswaldo Serrano MD [facility] 09/16/20 Telemedicine Oswaldo Serrano MD [facility] 07/18/20 Office Visit Connor Yuan APN, YUDI [facility] 07/11/20 Telemedicine Connor Yuan APN, YUDI [facility] [place] 06/09/20 Office Visit Oswaldo Serrano MD [facility] 05/29/20 Telemedicine Oswaldo Serrano MD [facility] 04/07/20 Office Visit Connor Yuan APN, YUDI [facility] 03/18/20 Telemedicine Oswaldo Serrano MD [facility] 12/14/19 Office Visit [facility] Showing recent visits within past 460 days with a meds authorizing provider and meeting all other requirements Future Appointments Date Type Provider Dept 12/08/20 Appointment [facility] Serrano MD [facility] Showing future appointments within next 90 days with a meds authorizing provider and meeting all other requirements DENTIAL REAL ESTATE ASSISTANT documented in this encounter Plan of Treatment Upcoming Encounters Date Type Department Care Team (Late st Contact Info) Description 10/08/2024 2:15 PM RESIDENTIAL REAL ESTATE ASSISTANT Office Visit [facility] UROLOGY #2 [place] [address] Orlin Urbina APRN, OPERATIONS CONTROLLER [address] [place] [address] 10/18/2024 2:15 PM RESIDENTIAL REAL ESTATE ASSISTANT Appointment [facility] 1 [place] [address] Oswaldo Serrano MD #[address] [address] Discharge Disposition: Discharged to home or Selfcare 11/29/2024 2:30 PM RESIDENTIAL REAL ESTATE ASSISTANT Office Visit [facility] - [place] #[address] [place] [address] Oswaldo Serrano MD #[address] [address] 11/30/2024 3:00 PM RESIDENTIAL REAL ESTATE ASSISTANT Office Visit [facility] - [place] #2 [place] [address] Ok Jorge MD #[address] [address] documented as of this encounter Visit Diagnoses Diagnosis Vitamin D deficiency Unspecified vitamin D deficiency documented in this encounter Additional Health Concerns Infection Onset Date Last Indicated Resolved Time COVID - 19 07/28/2021 07/29/2021 08/17/2021 12:1 6 AM RESIDENTIAL REAL ESTATE ASSISTANT Assessment Noted Time PHQ-9 Depression Total Score: 2 07/18/20 4:26 PM CDT documented as of this encounter Care Teams Lodging House Keeper Relationship Specialty Start Date End Date Oswaldo Serrano MD #[address] [place] [address] PCP - General Family Medicine 05/19/17 Angel Crowe DPM [address] [address] Consulting Physician Podiatry 06/16/17 Mora Fritz [place] Behavioral Health Navigator 06/15/18 Ok Jorge MD #[address] [address] Consulting Physician Endocrinology 05/12/22 Orlin Urbina APRN, OPERATIONS CONTROLLER #[address] [place] [address] Nurse Practitioner Advanced Practice Nurse 11/09/22 documented as of this encounter
--- OUTSIDE RECORDS SUMMARY | 2024-10-07 00:28 | XMS_ITS | Encounter Summary ---
Author Organization [facility] Address [address] [place] [address] Phone Care Team Providers Care Radio Program Checker Name Role Phone Oswaldo Serrano MD Primary Care Provider [phone] Angel Crowe DPM Unavailable [phone] Mora Fritz Unavailable Unavailable Reason for Referral * Radiology Services (Routine) - Closed Specialty Diagnoses / Procedures Referred By Praful ferro Referred To Contact Radiology Diagnoses Opacity of lung on imaging study Procedures XR CHEST 2 VIEWS Connor Yuan APRN, MATERIALS TECH #[address] [address] Phone: tel: fax: Referral ID Status Reason Start Date Expiration Date Visits Re quested Visits Authorized [id number] Closed 11/12/2020 1 1 E INSPECTOR Reason for Visit * Reason Onset Date Comments Results 11/12/2020 Encounter Details Date Type Department Care Team (Late st Contact Info) Description 11/12/2020 Telephone [facility] - Family Medicine - [place] [address] [place] [address] Connor Yuan APRN, YUDI [address] [address] Results Social History Tobacco Use Types Packs/Day [...] have Coronavirus / COVID-19? No / Unsure 11/11/2020 9:50 AM TABLE INSPECTOR documented as of this encounter Miscellaneous Notes * Telephone Encounter - Connie Gamez RN - 11/13/2020 11:30 AM CST Called patient sister SAWYER Dobbs and made lab appointment for patient to have BMP drawn in 1 week, instructed to pickle cutter Furosemide and Potassium at pharmacy. Notified of negative Covid test was negative and resulted today. Verbalizes understanding. E INSPECTOR * Telephone Encounter - Shayy Hardin RN - 11/12/2020 2:04 PM CST Scheduled E INSPECTOR * Addendum Note - Connor Yuan APN, YUDI - 11/12/2020 1:43 PM TABLE INSPECTOR Addended by: CONNOR YUAN on: 11/12/2020 01:43 PM Modules accepted: Orders E INSPECTOR * Telephone Encounter - Connor Yuan APN, CNP - 11/12/2020 1:43 PM CST Refilled furosemide and potassium. BMP in one week. E INSPECTOR * Telephone Encounter - Connie Gamez RN - 11/12/2020 1:36 PM CST Called and spoke with SAWYER Dilia patient sister to let her know Covid test has been ordered,PRD states she thought Dr. Pavon was refilling patients Furosemide. E INSPECTOR * Addendum Note - Connor Yuan APN, CNP - 11/12/2020 1:07 PM TABLE INSPECTOR Addended by: CONNOR YUAN on: 11/12/2020 01:07 PM Modules accepted: Orders E INSPECTOR * Telephone Encounter - Connor Yuan APN, CNP - 11/12/2020 1:06 PM CST Looks like maybe she gets the furosemide from someone else? If not let me know and I will refill itif she hasn't been taking it. OK for COVID test. Signed order and I let Shayy know. E INSPECTOR * Telephone Encounter - Connie Gamez RN - 11/12/2020 11:40 AM CST Called and spoke with sister SAWYER Dobbs regarding results and let her know it looks like the CXR didshow some fluid in the lungs/possible pneumonia. Will give antibiotics, but I also want her to takean extra tablet of furosemide daily for the next 5 days, then go back to her regular dose and let us know how she is feeling. Repeat CXR in 4 weeks.PRD verbalizes understanding, but would like patient to have a Covid Test? Furosemide is on current med list but has not been refilled since 04/20/2017 was on 40 mg 1 tablet BID on historical meds? E INSPECTOR * Telephone Encounter - Connie Gamez RN - 11/12/2020 11:33 AM CST Called and LVM for patient PRD her sister Peg regarding results and let them know it looks like the CXR did show some fluid in the lungs/possible pneumonia. Will give antibiotics, but I also want her to take an extra tablet of furosemide daily for the next 5 days, then go back to her regular dose and let us know how she is feeling. Repeat CXR in 4 weeks. E INSPECTOR * Telephone Encounter - Connor Yuan APN, CNP - 11/12/2020 10:05 AM CST Please call patient/PRD and let them know it looks like the CXR did show some fluid in the lungs/possible pneumonia. Will give antibiotics, but I also want her to take an extra tablet of furosemide daily for the next 5 days, then go back to her regular dose and let us know how she is feeling. Repeat CXR in 4 weeks. E INSPECTOR documented in this encounter Plan of Treatment Upcoming Encounters Date Type Department Care Team (Late st Contact Info) Description 10/08/2024 2:15 PM TABLE INSPECTOR Office Visit [facility] #2 [place] [address] Orlin Urbina APRN, MATERIALS TECH #2 [place] [address] 10/18/2024 2:15 PM TABLE INSPECTOR [facility] 1 [place] [address] Oswaldo Serrano MD #2 [facility] [address] [place] [address] Discharge Disposition: Discharged to home or Selfcare 11/29/2024 2:30 PM TABLE INSPECTOR Office Visit [facility] - [place] #2 [place] [address] Oswaldo Serrano MD #2 [facility] [address] [place] [address] 11/30/2024 3:00 PM TABLE INSPECTOR Office Visit [facility] - Endocrinology - [place] #2 [place] [address] Ok Jorge MD #[address] [place] [address] documented as of this encounter Results * XR CHEST 2 VIEWS (11/18/2020 10:09 AM TABLE INSPECTOR) Anatomical Region Laterality Modality Chest N/A Digital Radiogra phy 11/18/2020 11:3 4 AM TABLE INSPECTOR Impressions 11/18/2020 11:38 AM TABLE INSPECTOR IMPRESSION: ?? 1. ??Mild bibasilar atelectasis. 2. ??Stable chronic changes as described above. Narrative 11/18/2020 11:38 AM TABLE INSPECTOR EXAM DESCRIPTION: ?? XR CHEST 2 VIEWS REASON FOR STUDY: ?? Shortness of breath and chest pain for 1 week TECHNIQUE: ?? Frontal and lateral radiographic views of the chest acquired. COMPARISON: ?? 11/11/2020. FINDINGS: ??LUNGS/PLEURA: ??Mild bibasilar atelectasis. ??Mid to upper lungs are clear. ??No pleural effusion. ??No pneumothorax. HEART/MEDIASTINUM: ??Unchanged moderate cardiomegaly. ??The left atrium appears dilated. ??No mediastinal widening. HARDWARE/LINES/TUBES: ??Left implantable cardiac pacer defibrillator in unchanged position. ??Unchanged embolized lead fragment is noted in a right lower lobe pulmonary artery. BONES: ??No acute findings. OTHER: ??No other significant finding. THIS IS AN ELECTRONICALLY VERIFIED FINAL REPORT 11/18/2020 11:34 AM - Electronically signed by Adithya Goff M.D. RL: GLADIS D: ??11/18/2020 11:34 AM T: ??11/18/2020 11:34 AM Report ID: [id number] Reading Location: ??[id number] Procedure Note Adithya Goff MD - 11/18/2020 EXAM DESCRIPTION: XR CHEST 2 VIEWS REASON FOR STUDY: Shortness of breath and chest pain for 1 week TECHNIQUE: Frontal and lateral radiographic views of the chest acquired. COMPARISON: 11/11/2020. FINDINGS: LUNGS/PLEURA: Mild bibasilar atelectasis. Mid to upper lungs are clear. No pleural effusion. No pneumothorax. HEART/MEDIASTINUM: Unchanged moderate cardiomegaly. The left atrium appears dilated. No mediastinal widening. HARDWARE/LINES/TUBES: Left implantable cardiac pacer defibrillator in unchanged position. Unchanged embolized lead fragment is noted in a right lower lobe pulmonary artery. BONES: No acute findings. OTHER: No other significant finding. THIS IS AN ELECTRONICALLY VERIFIED FINAL REPORT 11/18/2020 11:34 AM - Electronically signed by Adithya Goff M.D. RL: GLADIS Report ID: [id number] Reading Location: [id number] IMPRESSION: 1. Mild bibasilar atelectasis. 2. Stable chronic changes as described above. us Connor Yuan ELIGIBILITY CONSULTANT, MATERIALS TECH IMG DIAGNOSTIC O RDERABLES Final Result * (ABNORMAL) BASIC METABOLIC PANEL W/ CALCIUM TOTAL (11/18/2020 9:47 AM TABLE INSPECTOR) SODIUM 135(L) 136 - 144 mmol/L 11/18/2020 11:04 AM [facility] POTASSIUM 4.4 3.5 - 5.1 mmol/L 11/18/2020 11:04 AM [facility] CHLORIDE 95(L) 100 - 110 mmol/L 11/18/2020 11:04 AM [facility] CO2, VENOUS 31 22 - 32 mmol/L 11/18/2020 11:04 AM [facility] ANION GAP 13.4 8.0 - 20.0 mmol/L 11/18/2020 11:04 AM [facility] GLUCOSE 398(H) 70 - 99 mg/dL 11/18/2020 11:04 AM [facility] BUN 24(H) 6 - 20 mg/dL 11/18/2020 11:04 AM [facility] CREATININE, BLOOD 1.01 0.60 - 1.10 mg/dL 11/18/2020 11:04 AM [facility] BUN/CREATININE RATIO 24(H) 12 - 20 ratio 11/18/2020 11:04 AM [facility] CALCIUM 9.4 8.9 - 10.3 mg/dL 11/18/2020 11:04 AM [facility] GFR, EST. NONAFRICAN 56(L) >=60 11/18/2020 11:04 AM [facility] GFR, EST. >60 >=60 11/18/2020 11:04 AM [facility] Comment: Creatinine Clearance is the preferred criteria for selecting drug dose adjustments in renally impaired patients. ??The GFR is provided as additional pertinent clinical information. GFR is reported in mL/min/1.73 sq m. IS THE PATIENT REQUIRED TO BE FASTING? No 11/18/2020 11:04 AM [facility] Blood Venipuncture / Unknown 11/18/2020 9:47 AM [facility] 11/18/2020 10:30 AM TABLE INSPECTOR us Connor Yuan APRN, MATERIALS TECH CHEMISTRY ORDERA BLES Final Result Performing Organization Address City/[facility]/ZIP Co de Phone Number [facility] [address] [place] [address] * SARS-COV-2 BY MOLECULAR (11/12/2020 3:23 PM TABLE INSPECTOR) SARSCOV2 NOT DETECTED (Referen ce Range for this test is Not Detected ) [facility] THERMOFISHER FAST DX 11/13/2020 5:45 AM TABLE INSPECTOR [facility] Comment:This test was perfor med by a PCR method. Other NASOPHARYNGEAL STRUCTURE / Unknown Non-Phlebotomy Collection / Unknown 11/12/2020 3:23 PM TABLE INSPECTOR 11/12/2020 3:23 PM TABLE INSPECTOR Narrative [facility] - 11/13/2020 5:45 AM TABLE INSPECTOR Authorized Fact Sheets about this test for providers and patients are available at: https://www.fda.gov/medical-devices/ietthfedh-okbxmhbjlf-ylbrupp-devices/emergen cy-us e-authorizations us Connor Yuan APRN, YUDI MICROBIOLOGY - G ENERAL ORDERABLES Final Result Performing Organization Address City/[facility]/ZIP Co de Phone Number [facility] [address] [place] [address], documented in this encounter Visit Diagnoses Diagnosis Opacity of lung on imaging study- Primary Chronic congestive heart failure, unspecified heart failure type (HCC) Opacity of lung on imaging study documented in this encounter Additional Health Concerns Infection Onset Date Last Indicated Resolved Time COVID - 19 11/12/2020 11/12/2020 11/16/2020 9:49 AM TABLE INSPECTOR Assessment Noted Time PHQ-9 Depression Total Score: 2 07/18/20 20 4:26 PM CDT documented as of this encounter Care Teams Radio Program Checker Relationship Specialty Start Date End Date Oswaldo Serrano MD #[address] [address] PCP - General Family Medicine 05/19/17 Angel Crowe DPM #2 [place] [address] Consulting Physician Podiatry 06/16/17 Mora Fritz Behavioral Health Navigator 06/15/18 documented as of this encounter
--- OUTSIDE RECORDS SUMMARY | 2024-10-07 00:28 | XMS_ITS | Encounter Summary ---
Author Organization [facility] Address [address] [place] [address] Phone Care Team Providers Care Ice Skater Name Role Phone Oswaldo Serrano MD Primary Care Provider [phone] Angel Crowe DPM Unavailable [phone] Mora Fritz Unavailable Unavailable Reason for Referral * Radiology Services (Routine) - Closed Specialty Diagnoses / Procedures Referred By Praful ferro Referred To Contact Radiology Diagnoses Chest congestion Procedures XR CHEST 2 VIEWS Connor Yuan APRN, STRIPING MACHINE OPERATOR #[address] [address] Phone: tel: fax: Referral ID Status Reason Start Date Expiration Date Visits Re quested Visits Authorized [id number] Closed 11/07/2020 1 1 L MAKER Reason for Visit * Reason Comments COVID-19 Covid symptoms. Sinu s headache, loss stool, neck and back pain. This has been going on for about a week. Would like to be tested. Encounter Details Date Type Department Care Team (Late st Contact Info) Description 11/07/2020 2:15 PM LABEL MAKER Telemedicine [facility] - [facility] [address] [place] [address] Connor Yuan, FLAME DEGREASER, STRIPING MACHINE OPERATOR [address] [address] Chest congestion (Primary Dx) Social History Tobacco Use Types [...] have Coronavirus / COVID-19? No / Unsure 11/07/2020 10:35 AM LABEL MAKER documented as of this encounter Progress Notes * Tanisha Panda - 11/07/2020 2:15 PM CST Lorettakathy Penn, 59 y.o., female is here for COVID-19 (Covid symptoms. Sinus headache, loss stool, neck and back pain. This has been going on for about a week. Would like to be tested.) Medication Refills: Patient reports/denies need for medication refills. Orders Pended: no Requested Prescriptions No prescriptions requested or ordered in this encounter Home Medications Medication Sig Start Date End Date Taking? Authorizing Provider ASPIR-LOW 81 MG Tablet Delayed Response 05/24/17 Yes Provider, MD Nica azithromycin (ZITHROMAX) 250 MG Tablet 2 tab(s) daily for 1 day, then 1 tab(s) daily for days 2-5. Patient not taking: Reported on 10/29/2020 10/09/20 Oswaldo Serrano MD Blood Glucose Monitoring Suppl [...] 05/24/17 Yes Nica Muniz MD docusate sodium (COLACE) 100 MG Capsule TAKE ONE CAPSULE BY MOUTH TWICE DAILY 10/30/20 Yes Oswaldo Serrano MD ergocalciferol (VITAMIN D) 13378 UNIT Capsule Take 1 Cap by mouth once a week. 09/11/20 Yes Connor Yuan APN, CNP escitalopram (LEXAPRO) 10 MG Tablet TAKE ONE TABLET BY MOUTH DAILY 09/18/20 Yes Oswaldo Serrano MD fluconazole (DIFLUCAN) 150 MG Tablet TAKE 1 TABLET BY MOUTH 1 TIME FOR 1 DOSE 10/17/20 Yes Nica Muniz MD fluticasone (FLONASE) 50 MCG/ACT Suspension 2 Sprays by Nasal route daily. Use in each nostril as directed. 04/07/20 Yes Connor Yuan APN, CNP furosemide (LASIX) 40 MG Tablet TK 1 T PO BID 04/29/17 Yes Nica Muniz MD Glucose Blood Strip Test blood glucose 4x daily. E11.9, insulin dependent 03/26/20 Yes Ok Jorge MD insulin glargine (Lantus) 100 UNIT/ML Solution 12 Units by Subcutaneous route every morning. 08/06/20 Yes Ok Jorge MD insulin lispro (HumaLOG) 100 UNIT/ML Solution INJECT 12 UNITS AT BREKFAST, 6 UNITS AT LUNCH AND 12 UNITS AT DINNER --- ISF OF 1:25 UP TO 40 UNITS PER DAY 08/06/20 Yes Ok Jorge MD Insulin Pen Needle [...] MCG Tablet TAKE ONE TABLET BY MOUTH DAILY IN THE MORNING 09/17/20 Yes Oswaldo Serrano MD lisinopril (PRINIVIL, ZESTRIL) 5 MG Tablet TAKE 1 TABLET BY MOUTH DAILY. 02/14/20 Yes Oswaldo Serrano MD nortriptyline (PAMELOR) 10 MG Capsule Take 1 Cap by mouth nightly. 09/16/20 Yes Oswaldo Serrano MD nystatin 949036 UNIT/GM Powder Apply 3 times daily for 14 days. Apply to affected area as directed.10/29/20 11/12/20 Yes Carson Michel MD omeprazole (PRILOSEC) 20 MG CAPSULE DELAYED RELEASE Take 1 Cap by mouth daily. 02/07/20 Yes Oswaldo Serrano MD oxybutynin (DITROPAN) 5 MG Tablet TAKE ONE TABLET BY MOUTH DAILY 10/06/20 Yes Carson Michel MD potassium chloride CR (KLORCON) 10 MEQ Tablet Controlled Release 08/18/19 Yes Nica Muniz MD potassium chloride SA (KLORCON M) 20 MEQ Tablet Controlled Release 04/30/20 Yes Nica Muniz MD rivaroxaban (XARELTO) 20 MG Tablet Take 20 mg by mouth daily (with dinner). Take with food. Yes Nica Muniz MD There are no discontinued medications. I [...] (0-64 years) (1 of 1 - PPSV23) 12/20/1967 ??? Zoster Immunization (1 of 2) 12/20/2011 ??? Colorectal Cancer Screening 12/20/2011 ??? Dilated Eye Exam 07/18/2019 ??? Pap Smear 06/06/2020 ??? Mammogram 10/17/2020 Orders Pended: no Video visit L MAKER * Connor Yuan APN, STRIPING MACHINE OPERATOR - 11/07/2020 2:15 PM CST Patient was assessed via telephone for a duration of 7 minutes. Patient verbally consented for thisservice to be performed and billed. HPI: Loretta Penn is a 59 y.o. female evaluated today for COVID-19 symptoms. Sinus headache, has back pain, loose stools, pleghm in throat for about a week. Possibly mild SOB. Difficult history. Denies fever, loss of sense of taste/smell, known exposure to COVID-19. Current Outpatient Medications: ??? ASPIR-LOW 81 MG Tablet Delayed Response ??? azithromycin (ZITHROMAX) 250 MG Tablet ??? Blood Glucose Monitoring Suppl Device ??? carvedilol (COREG) 25 MG Tablet ??? desmopressin (DDAVP) 0.2 MG Tablet ??? dilTIAZem (CARDIZEM) 30 MG Tablet ??? diphenhydrAMINE (BENADRYL) 25 MG Tablet ??? docusate sodium (COLACE) 100 MG Capsule ??? ergocalciferol (VITAMIN D) 71680 UNIT Capsule ??? escitalopram (LEXAPRO) 10 MG Tablet ??? fluconazole (DIFLUCAN) 150 MG Tablet ??? fluticasone (FLONASE) 50 MCG/ACT [...] nortriptyline (PAMELOR) 10 MG Capsule ??? nystatin 487993 UNIT/GM Powder ??? omeprazole (PRILOSEC) 20 MG [...] except as mentioned in the HPI. Plan: No diagnosis found. Follow Up: Loretta was asked to follow up with Connor Yuan APN, CNP in 3-5 day(s). Education materials sent via the patient's [employer] account. L MAKER documented in this encounter Plan of Treatment Upcoming Encounters Date Type Department Care Team (Late st Contact Info) Description 10/08/2024 2:15 PM LABEL MAKER Office Visit [facility] UR[facility] #2 [place] [phone] Orlin Urbina APRN, STRIPING MACHINE OPERATOR #2 [place] [address] 10/18/2024 2:15 PM LABEL MAKER [facility] 1 [place] [address] Oswaldo Serrano MD #2 [facility] [address] [place] [address] Discharge Disposition: Discharged to home or Selfcare 11/29/2024 2:30 PM LABEL MAKER Office Visit [facility] Medical [facility] - Family Medicine - [place] #2 [place] [address] Oswaldo Serrano MD #2 [facility] [address] [place] [address] 11/30/2024 3:00 PM LABEL MAKER Office Visit [facility] Endocrinology - [place] #2 [place] [address] Ok Jorge MD #[address] [address] documented as of this encounter Results * XR CHEST 2 VIEWS (11/11/2020 10:31 AM LABEL MAKER) Anatomical Region Laterality Modality Chest N/A Digital Radiogra phy 11/12/2020 9:57 AM LABEL MAKER Impressions 11/12/2020 10:00 AM LABEL MAKER IMPRESSION: ?? Minimal interstitial opacities in the lower lungs. ?? These likely represent minimal edema given the presence of cardiomegaly. ??No focal consolidation is seen. Narrative 11/12/2020 10:00 AM LABEL MAKER EXAM DESCRIPTION: ?? XR CHEST 2 VIEWS REASON FOR STUDY: ?? Chest congestion for 2 weeks. TECHNIQUE: ?? Frontal and lateral radiographic views of the chest acquired. COMPARISON: ?? 03/29/2020. FINDINGS: ??LUNGS/PLEURA: ??Minimal interstitial opacities noted in the lower lungs. ??No focal consolidation. ??No pleural effusion or pneumothorax. HEART/MEDIASTINUM: ??Unchanged moderate cardiomegaly. ??Mediastinal contour is stable without interval widening. HARDWARE/LINES/TUBES: ??Left implantable cardiac pacer defibrillator in unchanged position. BONES: ??No acute findings. OTHER: ??No other significant finding. THIS IS AN ELECTRONICALLY VERIFIED FINAL REPORT 11/12/2020 9:57 AM - Electronically signed by Adithya Goff M.D. RL: RL D: ??11/12/2020 9:57 AM T: ??11/12/2020 9:57 AM Report ID: [id number] Reading Location: ??[id number] Procedure Note Adithya Goff MD - 11/12/2020 EXAM DESCRIPTION: XR CHEST 2 VIEWS REASON FOR STUDY: Chest congestion for 2 weeks. TECHNIQUE: Frontal and lateral radiographic views of the chest acquired. COMPARISON: 03/29/2020. FINDINGS: LUNGS/PLEURA: Minimal interstitial opacities noted in the lower lungs. No focal consolidation. No pleural effusion or pneumothorax. HEART/MEDIASTINUM: Unchanged moderate cardiomegaly. Mediastinal contour is stable without interval widening. HARDWARE/LINES/TUBES: Left implantable cardiac pacer defibrillator in unchanged position. BONES: No acute findings. OTHER: No other significant finding. THIS IS AN ELECTRONICALLY VERIFIED FINAL REPORT 11/12/2020 9:57 AM - Electronically signed by Adithya Goff M.D. RL: GLADIS Report ID: [id number] Reading Location: [id number] IMPRESSION: Minimal interstitial opacities in the lower lungs. These likely represent minimal edema given the presence of cardiomegaly. No focal consolidation is seen. Connor Yuan APRN, STRIPING MACHINE OPERATOR IMG DIAGNOSTIC O RDERABLES Final Result documented in this encounter Visit Diagnoses Diagnosis Chest congestion- Primary Other symptoms involving respiratory system and chest Chest congestion Other symptoms involving respiratory system and chest documented in this encounter Additional Health Concerns Assessment Noted Time PHQ-9 Depression Total Score: 2 07/18/20 20 4:26 PM CDT documented as of this encounter Care Teams Ice Skater Relationship Specialty Start Date End Date Oswaldo Serrano MD #[address] [address] PCP - General Family Medicine 05/19/17 Angel Crowe DPM #[address] [address] Consulting Physician Podiatry 06/16/17 Mora Fritz Behavioral Health Navigator 06/15/18 documented as of this encounter
--- OUTSIDE RECORDS SUMMARY | 2024-10-07 00:28 | XMS_ITS | Encounter Summary ---
Author Organization [employer] Care Team Providers Care Phone Screener Name Role Phone Oswaldo Serrano MD Primary Care Provider [phone] Angel Crowe DPM Unavailable [phone] Mora Fritz Unavailable Unavailable Encounter Details Date Type Department Care Team (Latest Contact Info) Description 11/07/2020 Travel Social History Tobacco Use Types Packs/Day [...] COVID-19? No / Unsure 11/07/2020 10:35 AM DIRECT MARKETING MANAGER documented as of this encounter Plan of Treatment Upcoming Encounters Date Type Department Care Team (Late st Contact Info) Description 10/08/2024 2:15 PM DIRECT MARKETING MANAGER Office Visit [facility] UROLOGY #2 [place] [phone] Orlin Urbina, PETROLOGIST, SENIOR ACCOUNTANT ANALYST #2 [place] [address] 10/18/2024 2:15 PM DIRECT MARKETING MANAGER [facility] 1 [place] [phone] Oswaldo Serrano MD #2 [facility] [address] [place] [address] Discharge Disposition: Discharged to home or Selfcare 11/29/2024 2:30 PM DIRECT MARKETING MANAGER Office Visit [facility] - [facility] Medicine - [place] #2 [place] [phone] Oswaldo Serrano MD #2 [facility] [address] [place] [address] 11/30/2024 3:00 PM DIRECT MARKETING MANAGER Office Visit [facility] - Endocrinology - [place] #2 [place] [phone] Ok Jorge MD #2 [facility] [address] [place] [address] documented as of this encounter Visit Diagnoses Not on filedocumented in this encounter Additional Health Concerns Assessment Noted Time PHQ-9 Depression Total Score: 2 07/18/20 20 4:26 PM CDT documented as of this encounter Care Teams Phone Screener Relationship Specialty Start Date End Date Oswaldo Serrano MD #[address] [address] PCP - General Family Medicine 05/19/17 Angel Crowe DPM #[address] [address] Consulting Physician Podiatry 06/16/17 Mora Fritz Behavioral Health Navigator 06/15/18 documented as of this encounter
--- OUTSIDE RECORDS SUMMARY | 2024-10-07 00:28 | XMS_ITS | Encounter Summary ---
Author Organization [employer] Care Team Providers Care Engineering Coordinator Name Role Phone Oswaldo Serrano MD Primary Care Provider [phone] Angel Crowe DPM Unavailable [phone] Mora Fritz Unavailable Unavailable Encounter Details Date Type Department Care Team (Latest Contact Info) Description 11/11/2020 Travel Social History Tobacco Use Types Packs/Day [...] COVID-19? No / Unsure 11/11/2020 9:50 AM RADAR ENGINEERING TEACHER documented as of this encounter Plan of Treatment Upcoming Encounters Date Type Department Care Team (Late st Contact Info) Description 10/08/2024 2:15 PM RADAR ENGINEERING TEACHER Office Visit [facility]Y #2 [place] [phone] Orlin Urbina, COMBINATION WELDER, ROAD CUTTER #2 [place] [address] 10/18/2024 2:15 PM RADAR ENGINEERING TEACHER [facility] 1 [place] [phone] Oswaldo Serrano MD #2 [facility] [address] [place] [address] Discharge Disposition: Discharged to home or Selfcare 11/29/2024 2:30 PM RADAR ENGINEERING TEACHER Office Visit [facility] - [facility] Medicine - [place] #2 [place] [phone] Oswaldo Serrano MD #2 [facility] [address] [place] [address] 11/30/2024 3:00 PM RADAR ENGINEERING TEACHER Office Visit [facility] - Endocrinology - [place] #2 [place] [address] Ok Jorge MD #2 [facility] [address] [place] [address] documented as of this encounter Visit Diagnoses Not on filedocumented in this encounter Additional Health Concerns Assessment Noted Time PHQ-9 Depression Total Score: 2 07/18/20 20 4:26 PM CDT documented as of this encounter Care Teams Engineering Coordinator Relationship Specialty Start Date End Date Oswaldo Serrano MD #[address] [address] PCP - General Family Medicine 05/19/17 Agnel Crowe DPM #[address] [address] Consulting Physician Podiatry 06/16/17 Mora Fritz Behavioral Health Navigator 06/15/18 documented as of this encounter
--- OUTSIDE RECORDS SUMMARY | 2024-10-07 00:28 | XMS_ITS | Encounter Summary ---
Author Organization [facility] Address [address] [place] [address] Phone Care Team Providers Care Sports Attorney Name Role Phone Oswaldo Serrano MD Primary Care Provider [phone] Angel Crowe DPM Unavailable [phone] Mora Fritz Unavailable Unavailable Reason for Referral * Radiology Services (Routine) - Closed Specialty Diagnoses / Procedures Referred By Praful t Referred To Contact Radiology Diagnoses Chest congestion Procedures XR CHEST 2 VIEWS Connor Yuan APRN, BATTERY CHARGER #[address] [address] Phone: tel: fax: Referral ID Status Reason Start Date Expiration Date Visits Re quested Visits Authorized [id number] Closed 11/07/2020 1 1 FINISHER WOOL Reason for Visit * Radiology Services (Routine) - Closed Specialty Diagnoses / Procedures Referred By Contnay t Referred To Contact Radiology Diagnoses Chest congestion Procedures XR CHEST 2 VIEWS Connor Yuan APRN, BATTERY CHARGER #[address] [address] Phone: tel: fax: Referral ID Status Reason Start Date Expiration Date Visits Re quested Visits Authorized [id number] Closed 11/07/2020 1 1 Encounter Details Date Type Department Care Team (Latest Contact Info) Description 11/11/2020 10:00 AM WET FINISHER WOOL - 11/11/2020 11:59 PM WET FINISHER WOOL Hospital Encounter [facility] Diagnostic Radiology 1 [place] [phone] Connor Yuan APRN, BATTERY CHARGER #[address] [address] Discharge Disposition: Discharged to home or Selfcare [...] COVID-19? No / Unsure 11/11/2020 9:50 AM WET FINISHER WOOL documented as of this encounter Medications at Time of Discharge Blood Glucose Monitoring Suppl Device Test blood glucose 4 times daily. E11.9, insulin dependent 1 Each 0 dilTIAZem (CARDIZEM) 30 MG Tablet TK 1 T PO TID 0 7 Insulin Syringe-Needle U-100 (TRUEPLUS INSULIN SYRINGE) 31G X 5/16 0.5 ML Misc USE 4 TIMES DAILY 400 Each 3 0 Lancets Misc Test four times daily. E11.9, insulin dependent 400 Lancet 3 0 ASPIR-LOW 81 MG Tablet Delayed Response 7 11/08/19 22 azithromycin (ZITHROMAX) 250 MG Tablet 2 tab(s) daily for 1 day, then 1 tab(s) daily for days 2-5. 6 Tab 0 11/12/19 21 carvedilol (COREG) 25 MG Tablet 25 mg 2 times daily. 7 08/10/20 24 desmopressin (DDAVP) 0.2 MG TabletIndications:N octurnal enuresis Take 1 Tab by mouth nightly. Limit intake of liquids after the evening meal. 90 Tab 3 1 01/06/20 22 diphenhydrAMINE (BENADRYL) 25 MG TabletIndications:I nsomnia,itching Take 25 mg by mouth every 6 hours as needed for Itching or Sleep. 7 11/08/19 22 docusate sodium (COLACE) 100 MG Capsule TAKE ONE CAPSULE BY MOUTH TWICE DAILY 60 Cap 1 12/11/19 21 ergocalciferol (VITAMIN D) 53258 UNIT CapsuleIndications: Vitamin D deficiency Take 1 Cap by mouth once a week. 4 Cap 2 0 12/14/19 21 escitalopram (LEXAPRO) 10 MG Tablet TAKE ONE TABLET BY MOUTH DAILY 90 Tab 3 0 09/12/20 21 fluconazole (DIFLUCAN) 150 MG Tablet TAKE 1 TABLET BY MOUTH 1 TIME FOR 1 DOSE 1 11/08/19 22 fluticasone (FLONASE) 50 MCG/ACT SuspensionIndicatio ns:Chronic sinus complaints 2 Sprays by Nasal route daily. Use in each nostril as directed. 3 Bottle 3 0 11/08/19 22 furosemide (LASIX) 40 MG Tablet TK 1 T PO BID 2 7 11/12/19 21 Glucose Blood Strip Test blood glucose 4x daily. E11.9, insulin dependent 400 Strip 3 0 03/12/20 21 insulin degludec (Tresiba FlexTouch) 100 UNIT/ML Solution Pen-injector Tresiba FlexTouch U-100 100 unit/mL (3 mL) insulin pen 0 11/01/19 23 insulin glargine (Lantus) 100 UNIT/ML Solution 12 Units by Subcutaneous route every morning. 10 mL 2 0 02/14/20 21 insulin lispro (HumaLOG) 100 UNIT/ML Solution INJECT 12 UNITS AT BREKFAST, 6 UNITS AT LUNCH AND 12 UNITS AT DINNER --- ISF OF 1:25 UP TO 40 UNITS PER DAY 20 mL 2 0 12/04/19 21 Insulin Pen Needle (PEN NEEDLES 31GX5/16 ) 31G X 8 MM Misc Three times a day 300 Each 3 7 12/07/19 22 levothyroxine (SYNTHROID) 50 MCG Tablet TAKE ONE TABLET BY MOUTH DAILY IN THE MORNING 90 Tab 0 12/11/19 21 lisinopril (PRINIVIL, ZESTRIL) 5 MG TabletIndications:O rthostatic hypotension TAKE 1 TABLET BY MOUTH DAILY. 90 Tab 2 0 11/13/19 21 nortriptyline (PAMELOR) 10 MG Capsule Take 1 Cap by mouth nightly. 90 Cap 3 0 09/12/20 21 nystatin 924571 UNIT/GM PowderIndications:V aginitis and vulvovaginitis Apply 3 times daily for 14 days. Apply to affected area as directed. 15 g 1 11/12/19 21 omeprazole (PRILOSEC) 20 MG CAPSULE DELAYED RELEASE Take 1 Cap by mouth daily. 90 Cap 3 0 01/23/20 21 oxybutynin (DITROPAN) 5 MG TabletIndications:O AB (overactive bladder) TAKE ONE TABLET BY MOUTH DAILY 90 Tab 3 0 10/05/20 21 potassium chloride CR (KLORCON) 10 MEQ Tablet Controlled Release 9 11/12/19 21 potassium chloride SA (KLORCON M) 20 MEQ Tablet Controlled Release potassium chloride 20 mEq tablet,ER particles/crystal s 0 08/26/20 22 potassium chloride SA (KLORCON M) 20 MEQ Tablet Controlled Release 0 11/12/19 21 rivaroxaban (Xarelto) 20 MG Tablet Take 20 mg by mouth daily (with dinner). Take with food. 08/10/20 24 documented as of this encounter Plan of Treatment Upcoming Encounters Date Type Department Care Team (Late st Contact Info) Description 10/08/2024 2:15 PM WET FINISHER WOOL Office Visit [facility]OLOGY #2 [place] [address] Orlin Urbina, TRUCKLOAD CHECKER, BATTERY CHARGER #2 [place] [address] 10/18/2024 2:15 PM WET FINISHER WOOL Appointment [facility] Mammography 1 [place] [address] Oswaldo Serrano MD #[address] [address] Discharge Disposition: Discharged to home or Selfcare 11/29/2024 2:30 PM WET FINISHER WOOL Office Visit [facility] - [facility] - [place] #2 [facility] [place] [address] Oswaldo Serrano MD #2 [facility] [address] [place] [address] 11/30/2024 3:00 PM WET FINISHER WOOL Office Visit [facility] - Endocrinology - [place] #2 [place] [address] Ok Jorge MD #[address] [place] [address] documented as of this encounter Procedures Procedure Name Priority Date/Time Associated Diagnosis Comments XR CHEST 2 VIEWS Routine 11/11/2020 10:3 1 AM WET FINISHER WOOL Chest congestion documented in this encounter Results * XR CHEST 2 VIEWS (11/11/2020 10:31 AM WET FINISHER WOOL) Anatomical Region Laterality Modality Chest N/A Digital Radiogra phy 11/12/2020 9:57 AM WET FINISHER WOOL Impressions 11/12/2020 10:00 AM WET FINISHER WOOL IMPRESSION: ?? Minimal interstitial opacities in the lower lungs. ?? These likely represent minimal edema given the presence of cardiomegaly. ??No focal consolidation is seen. Narrative 11/12/2020 10:00 AM WET FINISHER WOOL EXAM DESCRIPTION: ?? XR CHEST 2 VIEWS [...] by Adithya Goff M.D. RL: GLADIS D: ??11/12/2020 9:57 AM T: ??11/12/2020 9:57 AM Report ID: [id number] Reading Location: ??[id number] Procedure Note Adithya Goff MD - 11/12/2020 [...] Adithya Goff M.D. RL: GLADIS Report ID: [id number] Reading Location: [id number] IMPRESSION: Minimal interstitial opacities in the lower lungs. These likely represent minimal edema given the presence of cardiomegaly. No focal consolidation is seen. Connor Yuan APRN, CNP IMG DIAGNOSTIC O RDERABLES Final Result documented in this encounter Visit Diagnoses Diagnosis Chest congestion Other symptoms involving respiratory system and chest documented in this encounter Additional Health Concerns Assessment Noted Time PHQ-9 Depression Total Score: 2 07/18/20 20 4:26 PM CDT documented as of this encounter Care Teams Sports Attorney Relationship Specialty Start Date End Date Oswaldo Serrano MD #[address] [address] PCP - General Family Medicine 05/19/17 Angel Crowe DPM #[address] [address] Consulting Physician Podiatry 06/16/17 Mora Fritz [place] Behavioral Health Navigator 06/15/18 documented as of this encounter
--- OUTSIDE RECORDS SUMMARY | 2024-10-07 00:28 | XMS_ITS | Encounter Summary ---
Author Organization [facility] Address [address] [place] [address] Phone Care Team Providers Care Travel Ot Name Role Phone Oswaldo Serrano MD Primary Care Provider Angel Crowe DPM Unavailable [phone] Mora Fritz Unavailable Unavailable Reason for Visit * Reason Onset Date Comments Care Management 11/22/2020 Encounter Details Date Type Department Care Team (Late st Contact Info) Description 11/22/2020 Telephone [facility] - [place] #2 [facility] [place] [address] Ok Jorge MD #[address] [address] Care Management Social History Tobacco [...] have Coronavirus / COVID-19? No / Unsure 11/21/2020 2:16 PM TRAFFIC INVESTIGATOR documented as of this encounter Miscellaneous Notes * Telephone Encounter - Lucila Panda CMA - 11/25/2020 8:36 AM CST Mailed AVS to patient FIC INVESTIGATOR * Telephone Encounter - Ok Jorge MD - 11/22/2020 12:56 AM CST Please send a copy of her AVS to her address FIC INVESTIGATOR documented in this encounter Plan of Treatment Upcoming Encounters Date Type Department Care Team (Late st Contact Info) Description 10/08/2024 2:15 PM TRAFFIC INVESTIGATOR Office Visit [facility] UROLOGY #2 [place] [address] Orlin Urbina, WORKERS COMPENSATION CONSULTANT, TRACE CLERK #2 [place] [address] 10/18/2024 2:15 PM TRAFFIC INVESTIGATOR Appointment [facility] Mammography 1 [place] [address] Oswaldo Serrano MD #[address] [address] Discharge Disposition: Discharged to home or Selfcare 11/29/2024 2:30 PM TRAFFIC INVESTIGATOR Office Visit [facility] - Family Medicine - [place] #2 [place] [address] Oswaldo Serrano MD #[address] [address] 11/30/2024 3:00 PM TRAFFIC INVESTIGATOR Office Visit [facility] - Endocrinology - [place] #2 [place] [address] Ok Jorge MD #[address] [address] documented as of this encounter Visit Diagnoses Not on filedocumented in this encounter Additional Health Concerns Assessment Noted Time PHQ-9 Depression Total Score: 2 07/18/20 20 4:26 PM CDT documented as of this encounter Care Teams Travel Ot Relationship Specialty Start Date End Date Oswaldo Serrano MD #[address] [address] PCP - General Family Medicine 05/19/17 Angel Crowe DPM #[address] [address] Consulting Physician Podiatry 06/16/17 Mora Fritz Behavioral Health Navigator 06/15/18 documented as of this encounter
--- OUTSIDE RECORDS SUMMARY | 2024-10-07 00:28 | XMS_ITS | Encounter Summary ---
Author Organization [facility] Care Team Providers Care Gas Welding Equipment Mechanic Name Role Phone Oswaldo Serrano MD Primary Care Provider [phone] Angel Crowe DPM Unavailable [phone] Mora Fritz Unavailable Unavailable Encounter Details Date Type Department Care Team (Latest Contact Info) Description 11/21/2020 Travel Social History Tobacco Use Types Packs/Day [...] COVID-19? No / Unsure 11/21/2020 2:16 PM ASSISTANT PLANT MANAGER documented as of this encounter Plan of Treatment Upcoming Encounters Date Type Department Care Team (Late st Contact Info) Description 10/08/2024 2:15 PM ASSISTANT PLANT MANAGER Office Visit [facility] UROLOGY #2 [place] [address] Orlin Urbina, BUSINESS SERVICES COORDINATOR, INSTRUMENT ADJUSTER #2 [place] [address] 10/18/2024 2:15 PM ASSISTANT PLANT MANAGER [facility] 1 [place] [phone] Oswaldo Serrano MD #2 [facility] [address] [place] [address] Discharge Disposition: Discharged to home or Selfcare 11/29/2024 2:30 PM ASSISTANT PLANT MANAGER [facility] - [place] #2 [place] [address] Oswaldo Serrano MD #2 [facility] [address] [place] [address] 11/30/2024 3:00 PM ASSISTANT PLANT MANAGER Office [facility] - [place] #2 [place] [address] Ok Jorge MD #2 [facility] [address] [place] [address] documented as of this encounter Visit Diagnoses Not on filedocumented in this encounter Additional Health Concerns Assessment Noted Time PHQ-9 Depression Total Score: 2 07/18/20 20 4:26 PM CDT documented as of this encounter Care Teams Gas Welding Equipment Mechanic Relationship Specialty Start Date End Date Oswaldo Serrano MD #[address] [address] PCP - General Family Medicine 05/19/17 Angel Crowe DPM #[address] [address] Consulting Physician Podiatry 06/16/17 Mora Fritz Behavioral Health Navigator 06/15/18 documented as of this encounter
--- OUTSIDE RECORDS SUMMARY | 2024-10-07 00:28 | XMS_ITS | Encounter Summary ---
Author Organization [facility] Address [address] [place] [address] Phone Care Team Providers Care Equipment Service Technician Name Role Phone Oswaldo Serrano MD Primary Care Provider Angel Crowe DPM Unavailable [phone] Mora Fritz Unavailable Unavailable Reason for Visit * Reason Onset Date Comments Results 10/11/2020 Encounter Details Date Type Department Care Team (Late st Contact Info) Description 10/11/2020 Telephone [facility] - Family Medicine [facility] #2 [place] [phone] Oswaldo Serrano MD #[address] [address] Results Social History Tobacco Use Types Packs/Day [...] grade 07/11/2020 Sexually Active Control Partners Comments Never Male Comments No Sex and Gender Information Value Date Recorded Sex Assigned at Not on file Legal Sex Female 3:04 PM CDT Gender Identity Not on file Sexual Orientation Not on file COVID-19 Exposure Response Date Recorded In the last month, have you been in contact with someone who was confirmed or suspected to have Coronavirus / COVID-19? No / Unsure 10/09/2020 4:02 PM CORPORATE SERVICES MANAGER documented as of this encounter Miscellaneous Notes * Telephone Encounter - Zainab Roblero RN - 10/11/2020 12:32 PM CST Sent to my chart. ORATE SERVICES MANAGER * Telephone Encounter - Zainab Roblero RN - 10/11/2020 12:32 PM CST ----- Message from Oswaldo Serrano MD sent at 10/10/2020 7:27 PM CORPORATE SERVICES MANAGER ----- Loretta, your COVID test is negative. Thanks! ORATE SERVICES MANAGER documented in this encounter Plan of Treatment Upcoming Encounters Date Type Department Care Team (Late st Contact Info) Description 10/08/2024 2:15 PM CORPORATE SERVICES MANAGER Office Visit [facility] UROLOGY #2 [place] [address] Orlin Urbina, HEREDITARY CANCER PROGRAM COORDINATOR, TENNIS INSTRUCTOR #2 [place] [address] 10/18/2024 2:15 PM CORPORATE SERVICES MANAGER Appointment [facility] Mammography 1 [place] [address] Oswaldo Serrano MD #[address] [address] Discharge Disposition: Discharged to home or Selfcare 11/29/2024 2:30 PM CORPORATE SERVICES MANAGER Office Visit [facility] Family Medicine [facility] #2 [place] [address] Oswaldo Serrano MD #[address] [address] 11/30/2024 3:00 PM CORPORATE SERVICES MANAGER Office Visit [facility] Endocrinology [facility] #2 [place] [address] Ok Jorge MD #[address] [address] documented as of this encounter Visit Diagnoses Not on filedocumented in this encounter Additional Health Concerns Infection Onset Date Last Indicated Resolved Time COVID - 19 10/09/2020 10/09/2020 10/11/2020 5:17 AM CORPORATE SERVICES MANAGER Assessment Noted Time PHQ-9 Depression Total Score: 2 07/18/20 20 4:26 PM CDT documented as of this encounter Care Teams Equipment Service Technician Relationship Specialty Start Date End Date Oswaldo Serrano MD #[address] [address] PCP - General Family Medicine 05/19/17 Angel Crowe DPM #[address] [address] Consulting Physician Podiatry 06/16/17 Mora Fritz Behavioral Health Navigator 06/15/18 documented as of this encounter
--- OUTSIDE RECORDS SUMMARY | 2024-10-07 00:28 | XMS_ITS | Encounter Summary ---
Author Organization [facility] Address [address] [place] [address] Phone Care Team Providers Care Paper Coater Name Role Phone Oswaldo Serrano MD Primary Care Provider [phone] Angel Crowe DPM Unavailable [phone] Mora Fritz Unavailable Unavailable Encounter Details Date Type Department Care Team (Late st Contact Info) Description 11/12/2020 3:00 PM WASHER ENGINEER Lab [facility] - Family Medicine [facility] #2 [place] [address] Clinic, [place] Nurse [place] Opacity of lung on imaging study Discharge Disposition: Discharged to home or Selfcare [...] COVID-19? No / Unsure 10/07/2021 3:45 PM WASHER ENGINEER documented as of this encounter Progress Notes * Shayy Hardin, RN - 11/12/2020 3:00 PM CST Patient presents to [facility] for drive up PCR Covid swab. Patient swabbed with no difficulty and patient tolerated well. Written instruction given on care at home, and home isolation. ER ENGINEER documented in this encounter Plan of Treatment Upcoming Encounters Date Type Department Care Team (Late st Contact Info) Description 10/08/2024 2:15 PM WASHER ENGINEER Office Visit [facility] GROUP UROLOGY #2 [place] [address] Orlin Urbina APRN, SUPERVISOR GROUNDS #2 [place] [address] 10/18/2024 2:15 PM WASHER ENGINEER Appointment [facility] Mammography 1 [place] [address] Oswaldo Serrano MD #[address] [address] Discharge Disposition: Discharged to home or Selfcare 11/29/2024 2:30 PM WASHER ENGINEER Office [facility] Family Medicine [facility] #2 [place] [address] Oswaldo Serrano MD #[address] [address] 11/30/2024 3:00 PM WASHER ENGINEER Office Visit [facility] Endocr[facility] - [place] #[address] [place] [address] Ok Jorge MD #[address] [address] [place] [address] documented as of this encounter Procedures Procedure Name Priority Date/Time Associated Diagnosis Comments SARS-COV-2 BY MOLECULAR Routine 11/12/2020 3:23 PM WASHER ENGINEER Opacity of lung on imaging study documented in this encounter Results * SARS-COV-2 BY MOLECULAR (11/12/2020 3:23 PM WASHER ENGINEER) SARSCOV2 NOT DETECTED (Referen ce Range for this test is Not Detected ) [facility] THERMOFISHER FAST DX 11/13/2020 5:45 AM WASHER ENGINEER [facility] Comment:This test was perfor med by a PCR method. Other NASOPHARYNGEAL STRUCTURE / Unknown Non-Phlebotomy Collection / Unknown 11/12/2020 3:23 PM WASHER ENGINEER 11/12/2020 3:23 PM WASHER ENGINEER N[facility]ative [facility] - 11/13/2020 5:45 AM WASHER ENGINEER Authorized Fact Sheets about this test for providers and patients are available at: https://www.fda.gov/medical-devices/advaqtcxk-cqycmyawok-oyrfojd-devices/emergen -us e-authorizations us Connor Yuan APRN, SUPERVISOR GROUNDS MICROBIOLOGY - G ENERAL ORDERABLES Final Result [facility] [address] [place] [address], [place] documented in this encounter Visit Diagnoses Diagnosis Opacity of lung on imaging study documented in this encounter Additional Health Concerns Infection Onset Date Last Indicated Resolved Time COVID - 19 11/12/2020 11/12/2020 11/16/2020 9:49 AM WASHER ENGINEER Assessment Noted Time PHQ-9 Depression Total Score: 2 10/09/20 20 4:26 PM CDT documented as of this encounter Care Teams Paper Coater Relationship Specialty Start Date End Date Oswaldo Serrano MD #[address] [address] PCP - General Family Medicine 05/19/17 Angel Crowe DPM #[address] [address] Consulting Physician Podiatry 06/16/17 Mora Fritz Behavioral Health Navigator 06/15/18 documented as of this encounter
--- OUTSIDE RECORDS SUMMARY | 2024-10-07 00:28 | XMS_ITS | Encounter Summary ---
Author Organization [facility] Address [address] [place] [address] Phone Care Team Providers Care Casting Wheel Operator Name Role Phone Oswaldo Serrano MD Primary Care Provider [phone] Angel Crowe DPCiara Unavailable Mora Fritz Unavailable Unavailable Ok Jorge MD Unavailable Orlin Urbina APRN, AIR TRAFFIC CONTROL SPECIALIST Unavailable Reason for Visit * Reason Comments Medication Refill Encounter Details Date Type Department Care Team (Late st Contact Info) Description 10/29/2020 Refill [facility] Family Medicine - [place] #2 [place] [address] Oswaldo Serrano MD #[address] [address] Medication Refill Social History Tobacco Use Types [...] COVID-19? No / Unsure 10/29/2020 2:20 PM INDUSTRIAL PHOTOGRAPHER documented as of this encounter Miscellaneous Notes * Telephone Encounter - Mica Morales RN - 10/29/2020 1:37 PM CST Medication failed the protocol, provider to review and approve the medication order if appropriate. Requested Prescriptions Pending Prescriptions Disp Refills docusate sodium (COLACE) 100 MG Capsule [Pharmacy Med Name: DOCUSATE SOD 100 MG CAP RELI] 60 Cap 0 Sig: TAKE ONE CAPSULE BY MOUTH TWICE DAILY Not Delegated - Over the Counter: OTC Failed - 10/29/2020 1:37 PM Failed - This refill cannot be delegated Passed - Valid encounter within last 12 months Past Office Visits Recent Outpatient Visits 2 weeks ago Flu-like symptoms [facility] - Oswaldo Moreno MD 1 month ago Chronic joint pain [facility] - Oswaldo Moreno MD 3 months ago Diabetic polyneuropathy associated with type 2 diabetes mellitus (HCC) [facility] - Connor Hutchinson APN, YUDI 3 months ago Acute diarrhea [facility] - Connor Hutchinson APN, YUDI 4 months ago Tick bite, initial encounter [facility] - Oswaldo Moreno MD Upcoming Appointments Future Appointments Today Carson Michel MD [facility] UROLOGY, [facility] In 1 week Ok Jorge MD [facility] - Endocrinology - [facility] In 1 month Oswaldo Serrano MD [facility] Medical [facility] - Family Medicine - [facility] HEADLIGHT ASSEMBLER - Recent and Past Visits Recent Visits Date Type Provider Dept 10/09/20 Office Visit Oswaldo Serrano MD [facility] 09/16/20 Telemedicine Oswaldo Serrano MD [facility] 07/18/20 Office Visit Connor Yuan APN, AIR TRAFFIC CONTROL SPECIALIST [facility] 07/11/20 Telemedicine Connor Yuan APN, AIR TRAFFIC CONTROL SPECIALIST [facility] 06/09/20 Office Visit Oswaldo Serrano MD [facility] 05/29/20 Telemedicine Oswaldo Serrano MD [facility] 04/07/20 Office Visit Connor Yuan APN, AIR TRAFFIC CONTROL SPECIALIST [facility] 03/18/20 Telemedicine Oswaldo Serrano MD [facility] 12/14/19 Office Visit Merry Elliott, [facility] 08/28/19 Office Visit Oswaldo Serrano MD [facility] Showing recent visits within past 460 days with a meds authorizing provider and meeting all other requirements Future Appointments Date Type Provider Dept 12/08/20 Appointment Oswaldo Serrano MD [facility] Showing future appointments within next 90 days with a meds authorizing provider and meeting all other requirements STRIAL PHOTOGRAPHER documented in this encounter Plan of Treatment Upcoming Encounters Date Type Department Care Team (Late st Contact Info) Description 10/08/2024 2:15 PM INDUSTRIAL PHOTOGRAPHER Office Visit [facility] #2 [place] [address] Orlin Urbina, FIRE EXTINGUISHER INSPECTOR, AIR TRAFFIC CONTROL SPECIALIST #2 [place] [address] 10/18/2024 2:15 PM INDUSTRIAL PHOTOGRAPHER [facility] 1 [place] [address] Oswaldo Serrano MD #[address] [address] Discharge Disposition: Discharged to home or Selfcare 11/29/2024 2:30 PM INDUSTRIAL PHOTOGRAPHER [facility] Family Medicine [facility] #2 [place] [address] Oswaldo Serrano MD #[address] [place] [address] 11/30/2024 3:00 PM INDUSTRIAL PHOTOGRAPHER Office Visit [facility] - Endocrinology [facility] #2 [place] [address] Ok Jorge MD #[address] [address] documented as of this encounter Visit Diagnoses Not on filedocumented in this encounter Additional Health Concerns Infection Onset Date Last Indicated Resolved Time COVID - 19 11/12/2020 11/12/2020 11/16/2020 9:49 AM INDUSTRIAL PHOTOGRAPHER COVID - 19 07/28/2021 07/29/2021 08/17/2021 12:1 6 AM INDUSTRIAL PHOTOGRAPHER Assessment Noted Time PHQ-9 Depression Total Score: 2 07/18/20 20 4:26 PM CDT documented as of this encounter Care Teams Casting Wheel Operator Relationship Specialty Start Date End Date Oswaldo Serrano MD #[address] [address] PCP - General Family Medicine 05/19/17 Angel Crowe DPM #2 [facility] [address] [place] [address] Consulting Physician Podiatry 06/16/17 Mora Fritz [place] Behavioral Health Navigator 06/15/18 Ok Jorge MD #2 [facility] [address] [place] [address] Consulting Physician Endocrinology 05/12/22 Orlin Urbina APRN, AIR TRAFFIC CONTROL SPECIALIST #2 [place] [address] Nurse Practitioner Advanced Practice Nurse 11/09/22 documented as of this encounter
--- OUTSIDE RECORDS SUMMARY | 2024-10-07 00:28 | XMS_ITS | Encounter Summary ---
Author Organization [facility] Address [address] [place] [address] Phone Care Team Providers Care Social Work Faculty Member Name Role Phone Oswaldo Serrano MD Primary Care Provider [phone] Angel Crowe DPM Unavailable Mora Fritz Unavailable Unavailable Ok Jorge MD Unavailable Reason for Visit * Reason Onset Date Comments Medication Refill 11/13/2020 Encounter Details Date Type Department Care Team (Late st Contact Info) Description 11/13/2020 Refill [facility] - Family Medicine - [place] #2 [place] [address] Oswaldo Serrano MD #[address] [address] Medication Refill Social History Tobacco Use Types [...] encounter Miscellaneous Notes * Telephone Encounter - María Perdomo MA - 07/06/2022 2:15 PM CDT rx encounter documented in this encounter Plan of Treatment Upcoming Encounters Date Type Department Care Team (Late st Contact Info) Description 10/08/2024 2:15 PM MACHINE COIL ASSEMBLER Office Visit [facility]YSIC[facility] GROUP UROLOGY #2 [place] [address] Orlin Urbina APRN, TRAINING DESIGNER #2 [place] [address] 10/18/2024 2:15 PM MACHINE COIL ASSEMBLER Appointment [facility] Mammography 1 [place] [address] Oswaldo Serrano MD #[address] [address] Discharge Disposition: Discharged to home or Selfcare 11/29/2024 2:30 PM MACHINE COIL ASSEMBLER Office Visit [facility] - Family Medicine [facility] #2 [place] [address] Oswaldo Serrano MD #[address] [address] 11/30/2024 3:00 PM MACHINE COIL ASSEMBLER Office Visit [facility] - Endocrinology [facility] #2 [place] [address] Ok Jorge MD #[address] [place] [address] documented as of this encounter Visit Diagnoses Not on filedocumented in this encounter Additional Health Concerns Infection Onset Date Last Indicated Resolved Time COVID - 19 11/12/2020 11/12/2020 11/16/2020 9:49 AM MACHINE COIL ASSEMBLER COVID - 19 07/28/2021 07/29/2021 08/17/2021 12:1 6 AM MACHINE COIL ASSEMBLER Assessment Noted Time PHQ-9 Depression Total Score: 2 07/18/20 20 4:26 PM CDT documented as of this encounter Care Teams Social Work Faculty Member Relationship Specialty Start Date End Date Oswaldo Serrano MD #[address] [address] PCP - General Family Medicine 05/19/17 Angel Crowe DPM #[address] [address] Consulting Physician Podiatry 06/16/17 Mora Fritz Behavioral Health Navigator 06/15/18 Ok Jorge MD #[address] [address] Consulting Physician Endocrinology 05/12/22 documented as of this encounter
--- OUTSIDE RECORDS SUMMARY | 2024-10-07 00:28 | XMS_ITS | Encounter Summary ---
Author Organization [facility] Address [address] [facility] [place] [address] Phone Care Team Providers Care Philosophy And Religion Instructor Name Role Phone Oswaldo Serrano MD Primary Care Provider Angel Crowe DPM Unavailable Mora Fritz Unavailable Unavailable Reason for Visit * Reason Onset Date Comments Yeast Infection 10/17/2020 Encounter Details Date Type Department Care Team (Late st Contact Info) Description 10/17/2020 Nurse Triage [facility] [address] [place] [address] Oswaldo Serrano MD #[address] [address] Yeast Infection Social History Tobacco Use Types Packs/Day Years [...] COVID-19? No / Unsure 10/09/2020 4:02 PM NEON LIGHT INSTALLER documented as of this encounter Miscellaneous Notes * Telephone Encounter - Jennifer Jacob RN - 10/22/2020 9:08 AM CST Pt picked up script for fluconazole on 10/19/2020 LIGHT INSTALLER * Telephone Encounter - Wicho Vences RN - 10/20/2020 9:17 AM CST Called patient and was not available. Left message to call the office back. LIGHT INSTALLER * Telephone Encounter - Oswaldo Serrano MD - 10/17/2020 9:40 PM NEON LIGHT INSTALLER Pended order signed. Thanks! LIGHT INSTALLER * Telephone Encounter - Mahdavi Gong RN - 10/17/2020 3:45 PM NEON LIGHT INSTALLER Dilia believes Loretta has a yeast infection from her abx. She is itching. Unsure of discharge. Symptoms started the other day Pharmacy verified Pending. Reason for Disposition ??? [1] Symptoms of a yeast infection (i.e., itchy, white discharge, not bad smelling) AND [2] feels like prior vaginal yeast infections First positive answer recorded, all responses to prior questions were negative. Protocols used: VAGINAL [id number] LIGHT INSTALLER documented in this encounter Plan of Treatment Upcoming Encounters Date Type Department Care Team (Late st Contact Info) Description 10/08/2024 2:15 PM NEON LIGHT INSTALLER Office Visit [facility] UROLOGY #2 [place] [address] Orlin Urbina APRN, STATIONARY BOILER FIREMAN #2 [place] [address] 10/18/2024 2:15 PM NEON LIGHT INSTALLER Appointment [facility] Mammography 1 [place] [address] Oswaldo Serrano MD #2 [facility] [address] [place] [address] Discharge Disposition: Discharged to home or Selfcare 11/29/2024 2:30 PM NEON LIGHT INSTALLER [facility] Visit [facility] - [place] #2 [place] [address] Oswaldo Serrano MD #2 [facility] [address] [place] [address] 11/30/2024 3:00 PM NEON LIGHT INSTALLER Office Visit [facility] - Endocr[facility]ology - [place] #2 [place] [address] Ok Jorge MD #2 [facility] [address] [place] [address] documented as of this encounter Visit Diagnoses Not on filedocumented in this encounter Additional Health Concerns Assessment Noted Time PHQ-9 Depression Total Score: 2 07/18/20 20 4:26 PM CDT documented as of this encounter Care Teams Philosophy And Religion Instructor Relationship Specialty Start Date End Date Oswaldo Serrano MD #[address] [address] PCP - General Family Medicine 05/19/17 Angel Crowe DPM #[address] [address] Consulting Physician Podiatry 06/16/17 Mora Fritz Behavioral Health Navigator 06/15/18 documented as of this encounter
--- OUTSIDE RECORDS SUMMARY | 2024-10-07 00:28 | XMS_ITS | Encounter Summary ---
Author Organization [facility] Address [address] [place] [address] Phone Care Team Providers Care Pipelines Laborer Name Role Phone Oswaldo Serrano MD Primary Care Provider [phone] Angel Crowe DPM Unavailable [phone] Mora Fritz Unavailable Unavailable Reason for Referral * Radiology Services (Routine) - Closed Specialty Diagnoses / Procedures Referred By Praful ferro Referred To Contact Radiology Diagnoses Opacity of lung on imaging study Procedures XR CHEST 2 VIEWS Connor Yuan APRN, MEDICAL ONCOLOGY PHYSICIAN #[address] [address] Phone: tel: fax: Referral ID Status Reason Start Date Expiration Date Visits Re quested Visits Authorized [id number] Closed 11/12/2020 1 1 Electronically signed by Connor Yuan, FILTERATION OPERATOR, MEDICAL ONCOLOGY PHYSICIAN at 11/18/2020 9:55 AM CORRECTION WORKER Reason for Visit * Radiology Services (Routine) - Closed Specialty Diagnoses / Procedures Referred By Praful ferro Referred To Contact Radiology Diagnoses Opacity of lung on imaging study Procedures XR CHEST 2 VIEWS Connor Yuan APRN, MEDICAL ONCOLOGY PHYSICIAN #[address] [address] Phone: tel: fax: Referral ID Status Reason Start Date Expiration Date Visits Re quested Visits Authorized [id number] Closed 11/12/2020 1 1 Encounter Details Date Type Department Care Team (Latest Contact Info) Description 11/18/2020 9:55 AM CORRECTION WORKER - 11/18/2020 11:59 PM CORRECTION WORKER Hospital Encounter [facility] Diagnostic Radiology 1 [place] [phone] Connor Yuan APRN, MEDICAL ONCOLOGY PHYSICIAN #[address] [address] Discharge Disposition: Discharged to home or Selfcare [...] have Coronavirus / COVID-19? No / Unsure 11/18/2020 8:45 AM CORRECTION WORKER documented as of this encounter Medications at [...] 81 MG Tablet Delayed Response 05/24/2017 2 carvedilol (COREG) 25 MG Tablet 25 mg 2 times daily. 05/06/2017 4 desmopressin (DDAVP) 0.2 MG TabletIndications :Nocturnal enuresis Take 1 Tab by mouth nightly. Limit intake of liquids after the evening meal. 90 Tab 3 10/29/2020 2 diphenhydrAMINE (BENADRYL) 25 MG TabletIndications :Insomnia,itching Take 25 mg by mouth every 6 hours as needed for Itching or Sleep. 05/24/2017 2 docusate sodium (COLACE) 100 MG Capsule TAKE ONE CAPSULE BY MOUTH TWICE DAILY 60 Cap 10/30/2020 1 doxycycline hyclate (VIBRAMYCIN) 100 MG CapsuleIndication s:Opacity of lung on imaging study Take 1 Cap by mouth 2 times daily for 7 days. 14 Cap 11/12/2020 1 ergocalciferol (VITAMIN D) [address]144 UNIT CapsuleIndication s:Vitamin D deficiency Take 1 Cap by mouth once a week. 4 Cap 2 09/11/2020 1 escitalopram (LEXAPRO) 10 MG Tablet TAKE ONE TABLET BY MOUTH DAILY 90 Tab 3 09/18/2020 1 fluconazole (DIFLUCAN) 150 MG Tablet TAKE 1 TABLET BY MOUTH 1 TIME FOR 1 DOSE 10/17/2020 2 fluticasone (FLONASE) 50 MCG/ACT SuspensionIndicat ions:Chronic [...] 1 insulin lispro (HumaLOG) 100 UNIT/ML Solution INJECT 12 UNITS AT BREKFAST, 6 UNITS AT LUNCH AND 12 UNITS AT DINNER --- ISF OF 1:25 UP TO 40 UNITS PER DAY 20 mL 2 08/06/2020 1 Insulin Pen Needle (PEN NEEDLES 31GX5/16 ) 31G X 8 MM Misc Three times a day 300 Each 3 07/01/2017 2 levothyroxine (SYNTHROID) 50 MCG Tablet TAKE ONE TABLET BY MOUTH DAILY IN THE MORNING 90 Tab 09/17/2020 1 lisinopril (PRINIVIL, ZESTRIL) 5 MG TabletIndications :Orthostatic [...] st Contact Info) Description 10/08/2024 2:15 PM CORRECTION WORKER Office Visit [facility] #2 [facility] [phone] Orlin Urbina, MOLD FILLING OPERATOR, MEDICAL ONCOLOGY PHYSICIAN #2 [place] [address] 10/18/2024 2:15 PM CORRECTION WORKER [facility] 1 [place] [phone] Oswaldo Serrano MD #2 [facility] [address] [place] [address] Discharge Disposition: Discharged to home or Selfcare 11/29/2024 2:30 PM CORRECTION WORKER [facility] - [place] #2 [place] [address] Oswaldo Serrano MD #2 [facility] [address] [place] [address] 11/30/2024 3:00 PM CORRECTION WORKER Office Visit [facility] - [place] #2 [place] [address] Ok Jorge MD #2 [facility] [address] [place] [address] documented as of this encounter Procedures Procedure Name Priority Date/Time Associated Diagnosis Comments XR CHEST 2 VIEWS Routine 11/18/2020 10:0 9 AM CORRECTION WORKER Opacity of lung on imaging study documented in this encounter Results * XR CHEST 2 VIEWS (11/18/2020 10:09 AM CORRECTION WORKER) Anatomical Region Laterality Modality Chest N/A Digital Radiogra phy 11/18/2020 11:3 4 AM CORRECTION WORKER Impressions 11/18/2020 11:38 AM CORRECTION WORKER IMPRESSION: ?? 1. ??Mild bibasilar atelectasis. 2. ??Stable chronic changes as described above. Narrative 11/18/2020 11:38 AM CORRECTION WORKER EXAM DESCRIPTION: ?? XR CHEST 2 VIEWS [...] AM T: ??11/18/2020 11:34 AM Report ID: [id number] Reading Location: ??[id number] Procedure Note Adithya Goff MD - 11/18/2020 [...] Adithya Goff M.D. RL: GLADIS Report ID: [id number] Reading Location: [place] [address] IMPRESSION: 1. Mild bibasilar atelectasis. 2. Stable chronic changes as described above. us Connor Yuan MOLD FILLING OPERATOR, MEDICAL ONCOLOGY PHYSICIAN IMG DIAGNOSTIC O RDERABLES Final Result documented in this encounter Visit Diagnoses Diagnosis Opacity of lung on imaging study documented in this encounter Additional Health Concerns Assessment Noted Time PHQ-9 Depression Total Score: 2 07/18/20 20 4:26 PM CDT documented as of this encounter Care Teams Pipelines Laborer Relationship Specialty Start Date End Date Oswaldo Serrano MD #[address] [address] PCP - General Family Medicine 05/19/17 Angel Crowe DPM #[address] [address] Consulting Physician Podiatry 06/16/17 Mora Fritz Behavioral Health Navigator 06/15/18 documented as of this encounter
--- OUTSIDE RECORDS SUMMARY | 2024-10-07 00:28 | XMS_ITS | Encounter Summary ---
Author Organization [facility] Care Team Providers Care Construction Skills Teacher Name Role Phone Oswaldo Serrano MD Primary Care Provider [phone] Angel Crowe DPM Unavailable [phone] Mora Fritz Unavailable Unavailable Encounter Details Date Type Department Care Team (Latest Contact Info) Description 10/29/2020 Travel Social History Tobacco Use Types Packs/Day [...] COVID-19? No / Unsure 10/29/2020 2:20 PM DESIGN ENGINEERING SPECIALIST documented as of this encounter Plan of Treatment Upcoming Encounters Date Type Department Care Team (Late st Contact Info) Description 10/08/2024 2:15 PM DESIGN ENGINEERING SPECIALIST Office Visit [facility] #2 [place] [phone] Orlin Urbina APRN, WATER QUALITY SPECIALIST #2 [place] [address] 10/18/2024 2:15 PM DESIGN ENGINEERING SPECIALIST [facility] 1 [place] [phone] Oswaldo Serrano MD #2 [facility] [address] [place] [address] Discharge Disposition: Discharged to home or Selfcare 11/29/2024 2:30 PM DESIGN ENGINEERING SPECIALIST Office Visit [facility] - [place] #2 [place] [phone] Oswaldo Serrano MD #2 [facility] [address] [place] [address] 11/30/2024 3:00 PM DESIGN ENGINEERING SPECIALIST Office Visit [facility] - [place] #2 [place] [phone] Ok Jorge MD #2 [facility] [address] [place] [address] documented as of this encounter Visit Diagnoses Not on filedocumented in this encounter Additional Health Concerns Assessment Noted Time PHQ-9 Depression Total Score: 2 07/18/20 20 4:26 PM CDT documented as of this encounter Care Teams Construction Skills Teacher Relationship Specialty Start Date End Date Oswaldo Serrano MD #[address] [address] PCP - General Family Medicine 05/19/17 Angel Crowe DPM #[address] [address] Consulting Physician Podiatry 06/16/17 Mora Fritz Behavioral Health Navigator 06/15/18 documented as of this encounter
--- OUTSIDE RECORDS SUMMARY | 2024-10-07 00:28 | XMS_ITS | Encounter Summary ---
Author Organization [facility] Address [address] [facility] [place] [address] Phone Care Team Providers Care Branch Account Manager Name Role Phone Oswaldo Serrano MD Primary Care Provider [phone] Angel Crowe DPM Unavailable [phone] Mora Fritz Unavailable Unavailable Reason for Visit * Reason Onset Date Comments COVID-19 11/06/2020 Encounter Details Date Type Department Care Team (Late st Contact Info) Description 11/06/2020 [facility] [address] [place] [address] Oswaldo Serrano MD #[address] [address] COVID-19 Social History Tobacco Use Types Packs/Day [...] COVID-19? No / Unsure 11/06/2020 4:20 PM TELECOMMUNICATION LINES REPAIRER documented as of this encounter Miscellaneous Notes * Telephone Encounter - Alondra Marvin RN - 11/06/2020 4:20 PM CST SITUATION (caller perception/concerns): Covid 19 BACKGROUND (events leading up to call): Patient has had a sinus headache off and on for about a week. Was on Antibiotic for UTI and got a Z-ariane for ear ache. History: CHF, Atrial fib, DM ASSESSMENT: Onset: today Symptoms: phlegm, white, headache, loose stools, occasional cough, sinus pain Pain: Present now: yes Length of time present: today Constant or intermittent: constant Description of pain: aching Level of pain/location: 9/10 Ability to perform daily activities: Doses not sleep well Temp (route, time): denies 97.8 oral Other Symptoms: Denies shortness of breath Treatment with response: Sinus PE plus allergy, has taken it before with some relief. RECOMMENDATION: Home care. Video appointment made for tomorrow afternoon. Patient agrees with disposition and will call back with worsening symptoms, questions, or concerns. See care advice and disposition for guideline. First positive answer recorded, all responses to [...] Reason for Disposition ??? [1] COVID-19 infection diagnosed or suspected AND [2] mild symptoms (fever, cough) AND [3] no trouble breathing or other complications Protocols used: CORONAVIRUS (COVID-19) - DIAGNOSED OR [id number] COMMUNICATION LINES REPAIRER documented in this encounter Plan of Treatment Upcoming Encounters Date Type Department Care Team (Late st Contact Info) Description 10/08/2024 2:15 PM TELECOMMUNICATION LINES REPAIRER Office Visit [facility] #2 [place] [phone] Orlin Urbina, J2EE CONSULTANT, PUBLIC INFORMATION COORDINATOR #2 [place] [address] 10/18/2024 2:15 PM TELECOMMUNICATION LINES REPAIRER Appointment [facility] Mammography 1 [place] [address] Oswaldo Serrano MD #[address] [address] Discharge Disposition: Discharged to home or Selfcare 11/29/2024 2:30 PM TELECOMMUNICATION LINES REPAIRER [facility] Visit [facility] [place] #2 [place] [address] Oswaldo Serrano MD #[address] [address] 11/30/2024 3:00 PM TELECOMMUNICATION LINES REPAIRER Office Visit [facility] - [place] #2 [facility] [address] Ok Jorge MD #[address] [place] [address] documented as of this encounter Visit Diagnoses Not on filedocumented in this encounter Additional Health Concerns Assessment Noted Time PHQ-9 Depression Total Score: 2 07/18/20 20 4:26 PM CDT documented as of this encounter Care Teams Branch Account Manager Relationship Specialty Start Date End Date Oswaldo Serrano MD #[address] [address] PCP - General Family Medicine 05/19/17 Angel Crowe DPM #[address] [address] Consulting Physician Podiatry 06/16/17 Mora Fritz Behavioral Health Navigator 06/15/18 documented as of this encounter
--- OUTSIDE RECORDS SUMMARY | 2024-10-07 00:28 | XMS_ITS | Encounter Summary ---
Author Organization [facility] Address [address] [place] [address] Phone Care Team Providers Care Steward/Stewardess Banquet Name Role Phone Oswaldo Serrano MD Primary Care Provider Angel Crowe DPM Unavailable [phone] Mora Fritz Unavailable Unavailable Reason for Visit * Reason Comments High Blood Sugar Encounter Details Date Type Department Care Team (Late st Contact Info) Description 11/21/2020 2:15 PM DRAWBENCH OPERATOR HELPER Telemedicine [facility] - Endocrinology [facility] #2 [place] [address] Ok Jorge MD #[address] [address] Type 2 diabetes mellitus with diabetic polyneuropathy, with long-term current use of insulin (HCC) (Primary Dx); Noncompliance Social History Tobacco Use Types Packs/Day Years [...] COVID-19? No / Unsure 11/21/2020 2:16 PM DRAWBENCH OPERATOR HELPER documented as of this encounter Patient Instructions * Patient Instructions* Ok Jorge MD - 11/21/2020 2:15 PM DRAWBENCH OPERATOR HELPER Please take Lantus??12??units in the morning ?? Please take Humalog??14-7-14??units before each meal ?? Please use correctional factor insulin before each meal as directed ?? Please monitor blood sugar before each meal and at bedtime ?? Contact Endocrinology Clinic for low blood sugar events ?? Follow up visit in 1 week ?? RULE OF 15: ??If you have [...] 400 ??+10 UNITS > 400 ??+11 UNITS BENCH OPERATOR HELPER documented in this encounter Progress Notes * Ok Jorge MD - 11/21/2020 2:15 PM CST Subject&Objective This was a telemedicine visit with Loretta Penn which took place via Telephone. Loretta Penn is a 59-year-old woman who has type 2 diabetes mellitus. 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 Other pertinent health history includes hypertension, dyslipidemia, and obesity. The patient was initially diagnosed with diabetes >10 years ago. Currently, Ms. Penn takes Lantus 12 units in the morning, Humalog 14 units with breakfast, 7 units with lunch, and 14 units with supper for management of hyperglycemia. The patient denied low blood sugar event or severe hypoglycemia requiring third democrat intervention. Her sister reports that her blood sugars have been running between 200 and 250 mg/dL. The patient usually goes to bed early in the morning and wakes up in the afternoon. Her sister states that she may not take insulin beforeeach meal as directed. Physical Exam Unable to obtain Assessment and Plan Loretta Penn is a middle-aged woman with type 2 diabetes mellitus whose glycemic control was suboptimal based on review of her capillary blood glucose report. Treatment consideration and compliance were discussed with her and her sister at some length. Ms. Penn will check blood sugar consistently before each meal and at bedtime. She will take insulin before each meal and bedtime as directed. Additional steps and management will then be determined when the aforementioned capillary blood glucose result is available for review. Additional steps in management to be determined once result is available for review. The patient will return for office reevaluation in 1 week. PLAN: 1. Take Lantus 12 units at bedtime 2. Take Humalog 14-7-14 units before each meal 3. Correctional factor insulin dosed at 1:25 if CBG is > 150 mg/dl 4. Monitor blood sugar QAC/QHS 5. Bring CBG log for review 6. Further plan based on #5 7. Contact Endocrinology Clinic for low blood sugar events 8. RTC in 1 week ??? I spent 16 min preparing the medical chart to see the patient, performing her medical evaluation, counseling the patient, and making today's office visit note. Ok Jorge MD 11/21/2020 BENCH OPERATOR HELPER documented in this encounter Plan of Treatment Upcoming Encounters Date Type Department Care Team (Late st Contact Info) Description 10/08/2024 2:15 PM DRAWBENCH OPERATOR HELPER Office Visit [facility] #2 [place] [address] Orlin Urbina, HUMAN RESOURCES PSYCHOLOGIST, GUARD CAPTAIN #2 [place] [address] 10/18/2024 2:15 PM DRAWBENCH OPERATOR HELPER [facility] 1 [place] [address] Oswaldo Serrano MD #[address] [address] Discharge Disposition: Discharged to home or Selfcare 11/29/2024 2:30 PM DRAWBENCH OPERATOR HELPER [facility] Visit [facility] #2 [place] [address] Oswaldo Serrano MD #[address] [address] 11/30/2024 3:00 PM DRAWBENCH OPERATOR HELPER [facility] - [place] #2 [place] [address] Ok Jorge MD #2 [facility] [address] [place] [address] documented as of this encounter Visit Diagnoses Diagnosis Type 2 diabetes mellitus with diabetic polyneuropathy, with long-term current use of insulin (HCC)- Primary Noncompliance Personal history of noncompliance with medical treatment, presenting hazards to health documented in this encounter Additional Health Concerns Assessment Noted Time PHQ-9 Depression Total Score: 2 07/18/20 20 4:26 PM CDT documented as of this encounter Care Teams Steward/Stewardess Banquet Relationship Specialty Start Date End Date Oswaldo Serrano MD #2 [facility] [address] [place] [address] PCP - General Family Medicine 05/19/17 Angel Crowe DPM #2 [facility] [address] [place] [address] Consulting Physician Podiatry 06/16/17 Mora Fritz Behavioral Health Navigator 06/15/18 documented as of this encounter
--- OUTSIDE RECORDS SUMMARY | 2024-10-07 00:28 | XMS_ITS | Encounter Summary ---
Author Organization [facility] Address [address] [place] [address] Phone Care Team Providers Care Business Strategist Name Role Phone Oswaldo Serrano MD Primary Care Provider Angel Crowe DPM Unavailable Mora Fritz Unavailable Unavailable Reason for Visit * Reason Comments Ear Pain left ear pain Encounter Details Date Type Department Care Team (Late st Contact Info) Description 10/09/2020 4:15 PM INFORMATION TECHNOLOGY CONSULTANT Office Visit [facility] #2 [place] [address] Oswaldo Serrano MD #[address] [address] Flu-like symptoms (Primary Dx); Diabetic vasculopathy (HCC) Discharge Disposition: Discharged to home or [...] COVID-19? No / Unsure 10/09/2020 4:02 PM INFORMATION TECHNOLOGY CONSULTANT documented as of this encounter Last Filed Vital Signs Vital Sign Reading Time Taken Comments Blood Pressure 128/74 10/09/2020 4:12 PM INFORMATION TECHNOLOGY CONSULTANT Pulse 83 10/09/2020 4:12 PM INFORMATION TECHNOLOGY CONSULTANT Temperature 35.7 ??C (96.3 ??F) 10/09/2020 4:12 PM CS T Respiratory Rate 16 10/09/2020 4:12 PM INFORMATION TECHNOLOGY CONSULTANT Oxygen Saturation 97% 10/09/2020 4:12 PM INFORMATION TECHNOLOGY CONSULTANT Inhaled Oxygen Concentration - - Weight 126.6 kg (279 lb 1.6 oz) 10/09/2020 4:12 PM INFORMATION TECHNOLOGY CONSULTANT Height 167.6 cm (5' 6 ) 10/09/2020 4:12 PM INFORMATION TECHNOLOGY CONSULTANT Body Mass Index 45.05 10/09/2020 4:12 PM INFORMATION TECHNOLOGY CONSULTANT documented in this encounter Patient Instructions * Patient Instructions* Oswaldo Serrano MD - 10/09/2020 4:15 PM INFORMATION TECHNOLOGY CONSULTANT 1. Get labs done in 2 weeks (nonfasting). 2. Do COVID test today! 3. Take Z-pack & Tessalon Perles. RMATION TECHNOLOGY CONSULTANT RMATION TECHNOLOGY CONSULTANT RMATION TECHNOLOGY CONSULTANT documented in this encounter Progress Notes * Tina Benitez, DOMINICK - 10/09/2020 4:15 PM CST Loretta Penn, 59 y.o., female is here for Ear Pain (left ear pain) Medication Refills: Patient reports/denies need [...] times daily. 05/06/17 Yes Nica Muniz MD dilTIAZem (CARDIZEM) 30 MG Tablet TK 1 T PO TID 04/28/17 Yes Nica Muniz MD diphenhydrAMINE (BENADRYL) 25 MG Tablet Take 25 mg by mouth every 6 hours as needed for Itching or Sleep. 05/24/17 Yes Nica Muniz MD ergocalciferol (VITAMIN D) 25974 UNIT Capsule Take 1 Cap by mouth once a week. 09/11/20 Yes Connor Yuan APN, CNP escitalopram (LEXAPRO) 10 MG Tablet TAKE ONE TABLET BY MOUTH DAILY 09/18/20 Yes Oswaldo Serrano MD fluticasone (FLONASE) 50 [...] have been addressed with the patient today: RMATION TECHNOLOGY CONSULTANT * Oswaldo Serrano MD - 10/09/2020 4:15 PM CST CHIEF COMPLAINT: Flu-like symptoms. SUBJECTIVE: Patient is here today with her caregiver. She is low functioning and it is difficult to get her to verbalize her symptoms. She does complain of dry throat and sore throat and pain in her left ear. Caregiver denies any COVID contacts. Patient denies any loss of taste or smell or shortness of breath or fever. I have reviewed all the systems. They are negative except as mentioned in HPI. OBJECTIVE: Vital Signs: Blood pressure 128/74, pulse 83, temperature 96.3, weight 279. General: Patient is talkative, cooperative and appropriately dressed. Chest: Clear to auscultation bilaterally. No wheezing. Heart: S1-S2. No murmurs. Neck: No carotid bruits auscultated. Mouth: Oropharynx is clear. ASSESSMENT/PLAN: 1. Flu-like symptoms. Will get COVID testing on her. I gave her a script for Z-Esau and Tessalon Perles. 2. This patient is to follow up with me in 2 months. I encouraged her to get her overdue labs done in about 2 weeks. IJN: [id number] RMATION TECHNOLOGY CONSULTANT RMATION TECHNOLOGY CONSULTANT * Tanisha Panda - 10/09/2020 4:15 PM CST PCR COVID test done per Dr. Oswaldo Serrano. RMATION TECHNOLOGY CONSULTANT documented in this encounter Plan of Treatment Upcoming Encounters Date Type Department Care Team (Late st Contact Info) Description 10/08/2024 2:15 PM INFORMATION TECHNOLOGY CONSULTANT Office Visit [facility] #2 [facility] [place] [phone] Orlin Urbina, LEGAL SUMMER INTERN, NOODLE MAKER #2 [place] [address] 10/18/2024 2:15 PM INFORMATION TECHNOLOGY CONSULTANT [facility]ment [facility] 1 [place] [phone] Oswaldo Serrano MD #2 [facility] [address] [place] [address] Discharge Disposition: Discharged to home or Selfcare 11/29/2024 2:30 PM INFORMATION TECHNOLOGY CONSULTANT Office Visit [facility] - [place] #2 [place] [address] Oswaldo Serrano MD #2 [facility] [address] [place] [address] 11/30/2024 3:00 PM INFORMATION TECHNOLOGY CONSULTANT Office Visit [facility] Endocrin[facility] - [place] #2 [place] [phone] Ok Jorge MD #2 [facility] [address] [place] [phone] documented as of this encounter Procedures Procedure Name Priority Date/Time Associated Diagnosis Comments SARS-COV-2 BY MOLECULAR Today 10/09/2020 4:46 PM INFORMATION TECHNOLOGY CONSULTANT Flu-like symptoms documented in this encounter Results * SARS-COV-2 BY MOLECULAR (10/09/2020 4:46 PM INFORMATION TECHNOLOGY CONSULTANT) SARSCOV2 NOT DETECTED (Referen ce Range for this test is Not Detected ) [facility] THERMOFISHER FAST DX 10/10/2020 6:59 PM INFORMATION TECHNOLOGY CONSULTANT [facility] Comment:This test was perfor med by a PCR method. Other NASOPHARYNGEAL STRUCTURE / Unknown Non-Phlebotomy Collection / Unknown 10/09/2020 4:46 PM INFORMATION TECHNOLOGY CONSULTANT 10/09/2020 4:47 PM INFORMATION TECHNOLOGY CONSULTANT Narrative [facility] - 10/10/2020 6:59 PM INFORMATION TECHNOLOGY CONSULTANT Authorized Fact Sheets about this test for providers and patients are available at: https://www.fda.gov/medical-devices/hplywiugz-pxxrycbmba-fvwkfuo-devices/emergen -us e-authorizations Result [facility] Oswaldo Serrano MD MICROBIOLOGY - [facility] Final Result [facility] [address] [id number], documented in this encounter Visit Diagnoses Diagnosis Flu-like symptoms- Primary Influenza with other respiratory manifestations Diabetic vasculopathy (HCC) Type II or unspecified type diabetes mellitus with other specified manifestations, not stated as uncontrolled documented in this encounter Additional Health Concerns Infection Onset Date Last Indicated Resolved Time COVID - 19 10/09/2020 10/09/2020 10/11/2020 5:17 AM INFORMATION TECHNOLOGY CONSULTANT Assessment Noted Time PHQ-9 Depression Total Score: 2 07/18/20 20 4:26 PM CDT documented as of this encounter Care Teams Business Strategist Relationship Specialty Start Date End Date Oswaldo Serrano MD #[address] [address] PCP - General Family Medicine 05/19/17 Angel Crowe DPM #[address] [address] Consulting Physician Podiatry 06/16/17 Mora Fritz Behavioral Health Navigator 06/15/18 documented as of this encounter
--- OUTSIDE RECORDS SUMMARY | 2024-10-07 00:28 | XMS_ITS | Encounter Summary ---
Author Organization [facility] Address [address] [place] [address] Phone Care Team Providers Care Supervisor Stage Carpentry Name Role Phone Oswaldo Serrano MD Primary Care Provider Angel Crowe DPM Unavailable Mora Fritz Unavailable Unavailable Reason for Visit * Reason Comments Medication Refill Encounter Details Date Type Department Care Team (Late st Contact Info) Description 11/12/2020 Refill [facility] #2 [place] [address] Oswaldo Serrano MD #[address] [address] Medication Refill Social History Tobacco Use Types [...] COVID-19? No / Unsure 11/11/2020 9:50 AM ASSISTANT SHIFT SUPERVISOR documented as of this encounter Miscellaneous Notes * Telephone Encounter - Mica Morales RN - 11/13/2020 11:32 AM CST Medication(s) refilled and signed per [facility] Chronic Medication Refill Standing Order for Pediatricand Adult Patients. Requested Prescriptions Pending Prescriptions Disp Refills ??? lisinopril (PRINIVIL, ZESTRIL) 5 MG Tablet [Pharmacy Med Name: LISINOPRIL 5MG* TAB LUPI] 90 Tab2 Sig: TAKE ONE TABLET BY MOUTH DAILY Cardiovascular: EMIR Inhibitors Passed - 11/12/2020 4:55 PM Passed - Valid encounter within last 12 months Past Office Visits Recent Outpatient Visits 6 days ago Chest congestion [facility] - Connor Hutchinson APN, CNP 1 month ago Flu-like symptoms [facility] - Oswaldo Moreno MD 1 month ago Chronic joint pain [facility] - Oswaldo Moreno MD 3 months ago Diabetic polyneuropathy associated with type 2 diabetes mellitus (HCC) [facility] - Connor Hutchinson APN, CNP 4 months ago Acute diarrhea [facility] - Connor Hutchinson APN, CNP Upcoming Appointments Future Appointments In 1 week Lab, [facility], [facility] In 1 week Ok Jorge MD [facility] Medical [facility] - Endocrinology - [place]LI [place] In 3 weeks Oswaldo Serrano MD [facility] - [facility] Medicine - [place], [facility] LOAN ASSOCIATE - Recent and Past Visits Recent Visits Date Type Provider Dept 11/07/20 Telemedicine Connor Yuan APN, YUDI [facility] 10/09/20 Office Visit Oswaldo Serrano MD [facility] 09/16/20 Telemedicine Oswaldo Serrano MD [facility] 07/18/20 Office Visit Connor Yuan APN, YUDI [facility] [place] 07/11/20 Telemedicine Connor Yuan APN, YUDI [facility] [place] 06/09/20 Office Visit Oswaldo Serrano MD [facility] 05/29/20 Telemedicine Oswaldo Serrano MD [facility] 04/07/20 Office Visit Connor Yuan APN, YUDI [facility] [place] 03/18/20 Telemedicine Oswaldo Serrano MD [facility] 12/14/19 Office Visit Merry Elliott PAC [facility] Showing recent visits within past 460 days with a meds authorizing provider and meeting all other requirements Future Appointments Date Type Provider Dept 12/08/20 Appointment Oswaldo Serarno MD [facility] Showing future appointments within next 90 days with a meds authorizing provider and meeting all other requirements Passed - Last BP in normal range BP Readings from Last 1 Encounters: 10/09/20 128/74 STANT SHIFT SUPERVISOR documented in this encounter Plan of Treatment Upcoming Encounters Date Type Department Care Team (Late st Contact Info) Description 10/08/2024 2:15 PM ASSISTANT SHIFT SUPERVISOR Office Visit [facility] #2 [place] [address] Orlin Urbina APRN, PC SUPPORT SPECIALIST #2 [place] [address] 10/18/2024 2:15 PM ASSISTANT SHIFT SUPERVISOR Appointment [facility] 1 [place] [address] Oswaldo Serrano MD #[address] [address] Discharge Disposition: Discharged to home or Selfcare 11/29/2024 2:30 PM ASSISTANT SHIFT SUPERVISOR Office Visit [facility] #2 [place] [address] Oswaldo Serrano MD #[address] [address] 11/30/2024 3:00 PM ASSISTANT SHIFT SUPERVISOR Office Visit [facility] - Endocrinology [facility] #2 [place] [address] Ok Jorge MD #[address] [place] [address] documented as of this encounter Visit Diagnoses Diagnosis Orthostatic hypotension documented in this encounter Additional Health Concerns Infection Onset Date Last Indicated Resolved Time COVID - 19 11/12/2020 11/12/2020 11/16/2020 9:49 AM ASSISTANT SHIFT SUPERVISOR Assessment Noted Time PHQ-9 Depression Total Score: 2 07/18/20 20 4:26 PM CDT documented as of this encounter Care Teams Supervisor Stage Carpentry Relationship Specialty Start Date End Date Oswaldo Serrano MD #[address] [address] PCP - General Family Medicine 05/19/17 Angel Crowe DPM #[address] [address] Consulting Physician Podiatry 06/16/17 Mora Fritz [place] Behavioral Health Navigator 06/15/18 documented as of this encounter
--- OUTSIDE RECORDS SUMMARY | 2024-10-07 00:28 | XMS_ITS | Encounter Summary ---
Author Organization [employer] Care Team Providers Care Recoverer Name Role Phone Oswaldo Serrano MD Primary Care Provider [phone] Angel Crowe DPM Unavailable [phone] Mora Fritz Unavailable Unavailable Encounter Details Date Type Department Care Team (Latest Contact Info) Description 10/09/2020 Travel Social History Tobacco Use Types Packs/Day [...] COVID-19? No / Unsure 10/09/2020 4:02 PM DONOR RELATIONS MANAGER documented as of this encounter Plan of Treatment Upcoming Encounters Date Type Department Care Team (Late st Contact Info) Description 10/08/2024 2:15 PM DONOR RELATIONS MANAGER Office Visit [facility] #2 [place] [phone] Orlin Urbina APRN, QA ARCHITECT #2 [place] [address] 10/18/2024 2:15 PM DONOR RELATIONS MANAGER [facility] 1 [place] [phone] Oswaldo Serrano MD #2 [facility] [address] [place] [address] Discharge Disposition: Discharged to home or Selfcare 11/29/2024 2:30 PM DONOR RELATIONS MANAGER Office Visit [facility] #2 [place] [address] Oswaldo Serrano MD #2 [facility] [address] [place] [address] 11/30/2024 3:00 PM DONOR RELATIONS MANAGER Office Visit [facility] - [place] #2 [place] [phone] Ok Jorge MD #2 [facility] [address] [place] [address] documented as of this encounter Visit Diagnoses Not on filedocumented in this encounter Additional Health Concerns Infection Onset Date Last Indicated Resolved Time COVID - 19 10/09/2020 10/09/2020 10/11/2020 5:17 AM DONOR RELATIONS MANAGER Assessment Noted Time PHQ-9 Depression Total Score: 2 07/18/20 20 4:26 PM CDT documented as of this encounter Care Teams Recoverer Relationship Specialty Start Date End Date Oswaldo Serrano MD #[address] [address] PCP - General Family Medicine 05/19/17 Angel Crowe DPM #[address] [address] Consulting Physician Podiatry 06/16/17 Mora Fritz Behavioral Health Navigator 06/15/18 documented as of this encounter
--- OUTSIDE RECORDS SUMMARY | 2024-10-07 00:29 | XMS_ITS | Encounter Summary ---
Author Organization [employer] Care Team Providers Care Property And Equipment Clerk Name Role Phone Oswaldo Serrano MD Primary Care Provider [phone] Angel Crowe DPM Unavailable [phone] Mora Fritz Unavailable Unavailable Encounter Details Date Type Department Care Team (Latest Contact Info) Description 08/25/2020 Travel Social History Tobacco Use Types Packs/Day [...] have Coronavirus / COVID-19? No / Unsure 08/25/2020 1:02 PM INSPECTOR BALL POINTS documented as of this encounter Plan of Treatment Upcoming Encounters Date Type Department Care Team (Late st Contact Info) Description 10/08/2024 2:15 PM INSPECTOR BALL POINTS Office Visit [facility] #2 [place] [phone] Orlin Urbnia APRN, SENIOR HR MANAGER #2 [place] [address] 10/18/2024 2:15 PM INSPECTOR BALL POINTS [facility] 1 [place] [phone] Oswaldo Serrano MD #2 [facility] [address] [place] [address] Discharge Disposition: Discharged to home or Selfcare 11/29/2024 2:30 PM INSPECTOR BALL POINTS Office Visit [facility] #2 [place] [address] Oswaldo Serrano MD #2 [facility] [address] [place] [address] 11/30/2024 3:00 PM INSPECTOR BALL POINTS Office Visit [facility] - [place] #2 [place] [address] Ok Jorge MD #2 [facility] [address] [place] [address] documented as of this encounter Visit Diagnoses Not on filedocumented in this encounter Additional Health Concerns Assessment Noted Time PHQ-9 Depression Total Score: 2 07/18/20 20 4:26 PM CDT documented as of this encounter Care Teams Property And Equipment Clerk Relationship Specialty Start Date End Date Oswaldo Serrano MD #[address] [address] PCP - General Family Medicine 05/19/17 Angel Crowe DPM #[address] [address] Consulting Physician Podiatry 06/16/17 Mora Fritz Behavioral Health Navigator 06/15/18 documented as of this encounter
--- OUTSIDE RECORDS SUMMARY | 2024-10-07 00:29 | XMS_ITS | Encounter Summary ---
Author Organization [facility] Address [address] [facility] [place] [address] Phone Care Team Providers Care Ranch Helper Name Role Phone Oswaldo Serrano MD Primary Care Provider Angel Crowe DPM Unavailable Mora Fritz Unavailable Unavailable Reason for Visit * Reason Onset Date Comments Appointment 08/05/2020 Encounter Details Date Type Department Care Team (Late st Contact Info) Description 08/05/2020 Telephone [facility] [address] [place] [address] Oswaldo Serrano MD #[address] [address] Appointment Social History Tobacco Use [...] have Coronavirus / COVID-19? No / Unsure 07/18/2020 4:13 PM CDT documented as of this encounter Miscellaneous Notes * Telephone Encounter - Eve Dickerson RN - 08/05/2020 2:38 PM CDT Sister Laura is calling to get an appointment with Dr. Jorge Transferred the phone call to the endocrinology office. documented in this encounter Plan of Treatment Upcoming Encounters Date Type Department Care Team (Late st Contact Info) Description 10/08/2024 2:15 PM LAY OUT HELPER Office Visit [facility] UROLOGY #2 [place] [address] Orlin Urbina, SENIOR PROJECT COORDINATOR, RAILROAD CAR CLEANER #2 [place] [address] 10/18/2024 2:15 PM LAY OUT HELPER Appointment [facility] 1 [place] [address] Oswaldo Serrano MD #[address] [address] Discharge Disposition: Discharged to home or Selfcare 11/29/2024 2:30 PM LAY OUT HELPER Office Visit [facility] #2 [place] [address] Oswaldo Serrano MD #2 [facility] [address] [place] [address] 11/30/2024 3:00 PM LAY OUT HELPER Office Visit [facility] - Endocrinology [facility] #2 [place] [address] Ok Jorge MD #[address] [address] documented as of this encounter Visit Diagnoses Not on filedocumented in this encounter Additional Health Concerns Assessment Noted Time PHQ-9 Depression Total Score: 2 07/18/20 20 4:26 PM CDT documented as of this encounter Care Teams Ranch Helper Relationship Specialty Start Date End Date Oswaldo Serrano MD #[address] [address] PCP - General Family Medicine 05/19/17 Angel Crowe DPM #[address] [address] Consulting Physician Podiatry 06/16/17 Mora Fritz Behavioral Health Navigator 06/15/18 documented as of this encounter
--- OUTSIDE RECORDS SUMMARY | 2024-10-07 00:29 | XMS_ITS | Encounter Summary ---
Author Organization [facility] Address [address] [place] [address] Phone Care Team Providers Care Religious Educator Name Role Phone Oswaldo Serrano MD Primary Care Provider Angel Crowe DPM Unavailable Mora Fritz Unavailable Unavailable Reason for Visit * Reason Comments Overactive Bladder 3 month f/u Encounter Details Date Type Department Care Team (Late st Contact Info) Description 08/25/2020 1:15 PM WOOL WASHER FEEDER Telemedicine [facility] UROLOGY #2 [place] [address] Carson Michel MD [address] [facility] [address] [place] [address] Acute cystitis without hematuria (Primary Dx) Discharge Disposition: Discharged to home [...] COVID-19? No / Unsure 08/25/2020 1:02 PM WOOL WASHER FEEDER documented as of this encounter Progress Notes * Carson Michel MD - 08/25/2020 1:15 PM CST Patient was assessed via telephone for a duration of 7 minutes. Patient verbally consented for thisservice to be performed and billed. HPI: Loretta Penn is a 59 y.o. female evaluated today for OAB. Patient with OAB Managed with oxybutynin She does have DM II Complains of concerns of UTI No fever or chills Endorses foul smelling urine and dysuria Current Outpatient Medications: ??? ASPIR-LOW 81 MG Tablet Delayed Response ??? Blood Glucose Monitoring Suppl Device ??? carvedilol (COREG) 25 MG Tablet ??? dilTIAZem (CARDIZEM) 30 MG Tablet ??? diphenhydrAMINE (BENADRYL) 25 MG Tablet ??? ergocalciferol (VITAMIN D) [address] UNIT Capsule ??? escitalopram (LEXAPRO) 10 MG [...] ??? nortriptyline (PAMELOR) 10 MG Capsule ??? omeprazole (PRILOSEC) 20 MG CAPSULE DELAYED [...] mentioned in the HPI. Plan: ICD-10-CM 1. Acute cystitis without hematuria N30.00 CULTURE, URINE Follow Up: Patient will present to give urine for culture WASHER FEEDER documented in this encounter Plan of Treatment Upcoming Encounters Date Type Department Care Team (Late st Contact Info) Description 10/08/2024 2:15 PM WOOL WASHER FEEDER Office Visit [facility] #2 [place] [address] Orlin Urbina, BICYCLE REPAIR TECHNICIAN, DESIGN ENGINEER [employer]GRICULTURAL EQUIPMENT #2 [place] [address] 10/18/2024 2:15 PM WOOL WASHER FEEDER [facility] 1 [place] [address] Oswaldo Serrano MD #[address] [address] Discharge Disposition: Discharged to home or Selfcare 11/29/2024 2:30 PM WOOL WASHER FEEDER Office Visit [facility] #2 [place] [address] Oswaldo Serrano MD #2 [facility] [address] [place] [address] 11/30/2024 3:00 PM WOOL WASHER FEEDER Office Visit [facility] - Endocrinology [facility] #2 [place] [address] Ok Jorge MD #2 [facility] [address] [place] [address] documented as of this encounter Procedures Procedure Name Priority Date/Time Associated Diagnosis Comments CULTURE, URINE Routine 09/11/2020 1:30 PM WOOL WASHER FEEDER Acute cystitis without hematuria documented in this encounter Results * CULTURE, URINE (09/11/2020 1:30 PM WOOL WASHER FEEDER) CULTURE RESULTS ESCHERICHIA COLI 09/13/2020 1:02 PM WOOL WASHER FEEDER [facility] Comment:PRESUMPTIVE IDENTIFI CATION CULTURE RESULTS ALSO MIXED GROWTH OF DISTAL URETHRA CONTAMINANTS. 09/13/2020 1:02 PM WOOL WASHER FEEDER [facility] Culture URINE SPECIMEN COLLECTION, CLEAN CATCH / Unknown Non-Phlebotomy Collection / Unknown 09/11/2020 1:30 PM WOOL WASHER FEEDER 09/11/2020 2:23 PM WOOL WASHER FEEDER Narrative Organism Antibiotic Method Susceptibility Escherichia coli [...] VITEK I IB <=20 mcg/ml: Susceptible us Carson Michel MD MICROBIOLOGY - GENERAL [facility] Final Result [facility] [address] [place] [address], documented in this encounter Visit Diagnoses Diagnosis Acute cystitis without hematuria- Primary Acute cystitis documented in this encounter Additional Health Concerns Assessment Noted Time PHQ-9 Depression Total Score: 2 07/18/20 20 4:26 PM CDT documented as of this encounter Care Teams Religious Educator Relationship Specialty Start Date End Date Oswaldo Serrano MD #[address] [address] PCP - General Family Medicine 05/19/17 Angel Crowe DPM #[address] [address] Consulting Physician Podiatry 06/16/17 Mora Fritz Behavioral Health Navigator 06/15/18 documented as of this encounter
--- OUTSIDE RECORDS SUMMARY | 2024-10-07 00:29 | XMS_ITS | Encounter Summary ---
Author Organization [employer] Care Team Providers Care Heeler Machine Name Role Phone Oswaldo Serrano MD Primary Care Provider [phone] Angel Crowe DPM Unavailable [phone] Mora Fritz Unavailable Unavailable Encounter Details Date Type Department Care Team (Latest Contact Info) Description 09/11/2020 Travel Social History Tobacco Use Types Packs/Day [...] have Coronavirus / COVID-19? No / Unsure 09/11/2020 1:18 PM SKID WRAPPER documented as of this encounter Plan of Treatment Upcoming Encounters Date Type Department Care Team (Late st Contact Info) Description 10/08/2024 2:15 PM SKID WRAPPER Office Visit [facility] #2 [place] [address] Orlin Urbina APRN, ASSURANCE SPECIALIST #2 [place] [address] 10/18/2024 2:15 PM SKID WRAPPER Appointment [facility] Mamm[facility] 1 [place] [phone] Oswaldo Serrano MD #2 [facility] [address] [place] [address] Discharge Disposition: Discharged to home or Selfcare 11/29/2024 2:30 PM SKID WRAPPER [facility] Visit [facility] #2 [place] [address] Oswaldo Serrano MD #2 [facility] [address] [place] [address] 11/30/2024 3:00 PM SKID WRAPPER Office Visit [facility] - End[facility] - [place] #2 [place] [address] Ok Jorge MD #2 [facility] [address] [place] [address] documented as of this encounter Visit Diagnoses Not on filedocumented in this encounter Additional Health Concerns Assessment Noted Time PHQ-9 Depression Total Score: 2 07/18/20 20 4:26 PM CDT documented as of this encounter Care Teams Heeler Machine Relationship Specialty Start Date End Date Oswaldo Serrano MD #[address] [address] PCP - General Family Medicine 05/19/17 Angel Crowe DPM #[address] [address] Consulting Physician Podiatry 06/16/17 Mora Fritz Behavioral Health Navigator 06/15/18 documented as of this encounter
--- OUTSIDE RECORDS SUMMARY | 2024-10-07 00:29 | XMS_ITS | Encounter Summary ---
Author Organization [facility] Address [address] [place] [address] Phone Care Team Providers Care Inventory And Pricing Associate Name Role Phone Oswaldo Serrano MD Primary Care Provider [phone] Angel Crowe DPM Unavailable [phone] Mora Fritz Unavailable Unavailable Reason for Visit * Reason Onset Date Comments Medication Refill Medication Refill 08/21/2020 status vit D Encounter Details Date Type Department Care Team (Late st Contact Info) Description 08/06/[address] [facility] - Family Medicine [facility] #2 [place] [address] Connor Yuan APRN, MENTAL TELEPATHIST #[address] [address] Medication Refill; Medication Refill (status vit D ) Social History Tobacco Use Types Packs/Day [...] have Coronavirus / COVID-19? No / Unsure 08/11/2020 2:55 PM CORPORATE HUMAN RESOURCES MANAGER documented as of this encounter Miscellaneous Notes * Telephone Encounter - Ynes Klein - 08/21/2020 9:22 AM CST Pharmacy call for status advised Vit D declined patient need lab ORATE HUMAN RESOURCES MANAGER * Telephone Encounter - Ruth Flores RN - 08/08/2020 3:54 PM CDT Sisters (PRD) notified, verbalized understanding and agrees. Will walk in to have this lab done. * Telephone Encounter - Coleen Ambrose RN - 08/08/2020 2:21 PM CDT Left message for patient to call the office back. * Telephone Encounter - Connor Yuan APN, YUDI - 08/07/2020 2:30 PM CDT She has to have vitamin D level rechecked. * Telephone Encounter - Nadine Platt RN - 08/07/2020 2:19 PM CDT Requested Prescriptions Pending Prescriptions Disp Refills ergocalciferol (VITAMIN D) 49672 UNIT Capsule [Pharmacy Med Name: VITAMIN D 50,000UNIT CAP STR] 4 Cap 2 Sig: TAKE ONE CAPSULE BY MOUTH ONCE WEEKLY Off-Protocol Failed - 08/06/2020 3:10 PM Failed - Medication not assigned to a protocol, review manually. Passed - Valid encounter within last 12 months Past Office Visits Recent Outpatient Visits 2 weeks ago Diabetic polyneuropathy associated with type 2 diabetes mellitus (HCC) [facility] Connor Hutchinson APN, CNP 3 weeks ago Acute diarrhea [facility] Connor Hutchinson APN, CNP 1 month ago Tick bite, initial encounter [facility] Oswaldo Moreno MD 2 months ago Diarrhea, unspecified type [facility] Oswaldo Moreno MD 4 months ago [facility] Upcoming Appointments Future Appointments In 4 days Ok Jorge MD [facility] Endocrinology [facility] Arrive at: Virtual Visit In 1 week Carson Michel MD [facility] UR[facility]Y, [facility] In 1 month Oswaldo Serrano MD [facility] SUPERVISOR PIPE JOINTS - Recent and Past Visits Recent Visits Date Type Provider Dept 07/18/20 Office Visit Connor Yuan APN, CNP [facility] 07/11/20 Telemedicine Connor Yuan APN, CNP [facility] 06/09/20 Office Visit Oswaldo Serrano MD [facility] 05/29/20 Telemedicine Oswaldo Serrano MD [facility] 04/07/20 Office Visit Connor Yuan APN, CNP [facility] 03/18/20 Telemedicine Oswaldo Serrano MD [facility] 12/14/19 Office Visit Merry Elliott PAC [facility] 08/28/19 Office Visit Oswaldo Serrano MD [facility] 06/22/19 Office Visit Connor Yuan APN, MENTAL TELEPATHIST [facility] Showing recent visits within past 460 days with a meds authorizing provider and meeting all other requirements Future Appointments Date Type Provider Dept 09/16/20 Appointment Oswaldo Serrano MD [facility] Showing future appointments within next 90 days with a meds authorizing provider and meeting all other requirements documented in this encounter Plan of Treatment Upcoming Encounters Date Type Department Care Team (Late st Contact Info) Description 10/08/2024 2:15 PM CORPORATE HUMAN RESOURCES MANAGER Office Visit [facility] UROLOGY #2 [place] [address] Orlin Urbina APRN, MENTAL TELEPATHIST #2 [place] [address] 10/18/2024 2:15 PM CORPORATE HUMAN RESOURCES MANAGER Appointment [facility] Mammography 1 [place] [address] Oswaldo Serrano MD #[address] [address] Discharge Disposition: Discharged to home or Selfcare 11/29/2024 2:30 PM CORPORATE HUMAN RESOURCES MANAGER Office Visit [facility] #2 [place] [address] Oswaldo Serrano MD #[address] [address] 11/30/2024 3:00 PM CORPORATE HUMAN RESOURCES MANAGER Office Visit [facility] - [place] #2 [place] [phone] Ok Jorge MD #2 [facility] [address] [place] [address] documented as of this encounter Visit Diagnoses Diagnosis Vitamin D deficiency Unspecified vitamin D deficiency documented in this encounter Additional Health Concerns Assessment Noted Time PHQ-9 Depression Total Score: 2 07/18/20 20 4:26 PM CDT documented as of this encounter Care Teams Inventory And Pricing Associate Relationship Specialty Start Date End Date Oswaldo Serrano MD #2 [facility] [address] [place] [address] PCP - General Family Medicine 05/19/17 Angel Crowe DPM #[address] [address] Consulting Physician Podiatry 06/16/17 Mora Fritz Behavioral Health Navigator 06/15/18 documented as of this encounter
--- OUTSIDE RECORDS SUMMARY | 2024-10-07 00:29 | XMS_ITS | Encounter Summary ---
Author Organization [facility] Address [address] [place] [address] Phone Care Team Providers Care Size Marker Name Role Phone Oswaldo Serrano MD Primary Care Provider [phone] Angel Crowe DPM Unavailable Mora Fritz Unavailable Unavailable Ok Jorge MD Unavailable Orlin Urbina APRN, DIETARY SERVER Unavailable Reason for Visit * Reason Comments Medication Refill Encounter Details Date Type Department Care Team (Late st Contact Info) Description 09/17/2020 Refill [facility] - [place] #[address] [place] [address] Oswaldo Serrano MD #[address] [address] Medication Refill Social History Tobacco Use Types [...] COVID-19? No / Unsure 09/11/2020 1:18 PM BEADER documented as of this encounter Miscellaneous Notes * Telephone Encounter - Mica Morales RN - 09/18/2020 9:22 AM CST Medication failed the protocol, provider to review and approve the medication order if appropriate. Requested Prescriptions Pending Prescriptions Disp Refills escitalopram (LEXAPRO) 10 MG Tablet [Pharmacy Med Name: ESCITALOPRAM 10 MG* TAB SOLC] 90 Tab 3 Sig: TAKE ONE TABLET BY MOUTH DAILY Not Delegated - Psychiatry: Antidepressants Failed - 09/17/2020 4:14 PM Failed - This refill cannot be delegated Passed - Valid encounter within last 12 months Past Office Visits Recent Outpatient Visits 2 days ago Chronic joint pain [facility] - Oswaldo Moreno MD 2 months ago Diabetic polyneuropathy associated with type 2 diabetes mellitus (HCC) [facility] - Family Medicine - Connor Hutchinson APN, CNP 2 months ago Acute diarrhea [facility] Family Medicine - Connor Hutchinson APN, CNP 3 months ago Tick bite, initial encounter [facility] Family [facility] - Oswaldo Moreno MD 3 months ago Diarrhea, unspecified type [facility] Family Medicine - Oswaldo Moreno MD Upcoming Appointments Future Appointments In 1 month Ok Jorge MD [facility] Medical Group - Endocrinology - [facility] PRODUCT MARKETING SPECIALIST - Recent and Past Visits Recent Visits Date Type Provider Dept 09/16/20 Telemedicine Oswaldo Serrano MD [facility] 07/18/20 Office Visit Connor Yuan APN, YUDI [facility] [place] 07/11/20 Telemedicine Connor Yuan APN, YUDI [facility] [place] 06/09/20 Office Visit Oswaldo Serrano, [facility] 05/29/20 Telemedicine Oswaldo Serrano, [facility] 04/07/20 Office Visit Connor Yuan APN, YUDI [facility] [place] 03/18/20 Telemedicine Oswaldo Serrano, [facility] [place] 12/14/19 Office Visit Earl Merry Hendrickson, AIDNE [facility] 08/28/19 Office Visit Oswaldo Serrano, [facility] [place] 06/22/19 Office Visit Connor Yuan APN, DIETARY SERVER [facility] Showing recent visits within past 460 days with a meds authorizing provider and meeting all other requirements Future Appointments No visits were found meeting these conditions. Showing future appointments within next 90 days with a meds authorizing provider and meeting all other requirements ER documented in this encounter Plan of Treatment Upcoming Encounters Date Type Department Care Team (Late st Contact Info) Description 10/08/2024 2:15 PM BEADER Office Visit [facility] UROLOGY #2 [place] [address] Orlin Urbina DESKTOP MANAGER, DIETARY SERVER #2 [place] [address] 10/18/2024 2:15 PM BEADER Appointment [facility] Mammography 1 [place] [address] Oswaldo Serrano MD #[address] [address] Discharge Disposition: Discharged to home or Selfcare 11/29/2024 2:30 PM BEADER [facility] #[address] [place] [address] Oswaldo Serrano MD #[address] [address] 11/30/2024 3:00 PM BEADER Office Visit [facility] Endocrinology [facility] #2 [place] [address] Ok Jorge MD #[address] [address] documented as of this encounter Visit Diagnoses Not on filedocumented in this encounter Additional Health Concerns Infection Onset Date Last Indicated Resolved Time COVID - 19 10/09/2020 10/09/2020 10/11/2020 5:17 AM BEADER COVID - 19 11/12/2020 11/12/2020 11/16/2020 9:49 AM BEADER COVID - 19 07/28/2021 07/29/2021 08/17/2021 12:1 6 AM BEADER Assessment Noted Time PHQ-9 Depression Total Score: 2 07/18/20 20 4:26 PM CDT documented as of this encounter Care Teams Size Marker Relationship Specialty Start Date End Date Oswaldo Serrano MD #[address] [address] PCP - General Family Medicine 05/19/17 Angel Crowe DPM #[address] [address] Consulting Physician Podiatry 06/16/17 Mora Fritz [place] Behavioral Health Navigator 06/15/18 Ok Jorge MD #[address] [address] [address] Consulting Physician Endocrinology 05/12/22 Orlin Urbina APRN, YUDI #[address] [place] [address] Nurse Practitioner Advanced Practice Nurse 11/09/22 documented as of this encounter
--- OUTSIDE RECORDS SUMMARY | 2024-10-07 00:29 | XMS_ITS | Encounter Summary ---
Author Organization [facility] Address [address] [place] [address] Phone Care Team Providers Care Hall Porter Name Role Phone Oswaldo Serrano MD Primary Care Provider Angel Crowe DPM Unavailable [phone] Mora Fritz Unavailable Unavailable Reason for Visit * Reason Onset Date Comments Medication Refill 08/06/2020 Encounter Details Date Type Department Care Team (Late st Contact Info) Description 08/06/2020 Refill [facility] - [place] #2 [place] [address] Ok Jorge MD #[address] [address] Medication Refill Social History Tobacco [...] Telephone Encounter - Ok Jorge MD - 08/06/2020 10:17 AM CDT Rx sent * Telephone Encounter - Ynes Zuniga RN - 08/06/2020 8:52 AM CDT Refill request received. Order pended. Requested Prescriptions Pending Prescriptions Disp Refills ??? insulin lispro (HumaLOG) 100 UNIT/ML Solution 20 mL 2 Sig: INJECT 10 UNITS AT BREKFAST, 5 UNITS AT LUNCH AND 10 UNITS AT DINNER --- CORRECTIONAL FACTOR INSULIN OF 1:25 UP TO 40 UNITS PER DAY ??? insulin glargine (Lantus) 100 UNIT/ML Solution 10 mL 2 Next appt: 08/11/2020 documented in this encounter Plan of Treatment Upcoming Encounters Date Type Department Care Team (Late st Contact Info) Description 10/08/2024 2:15 PM CAN FILLING MACHINE OPERATOR Office Visit [facility] #2 [place] [address] Orlin Urbina APRN, URBAN RENEWAL MANAGER #2 [place] [address] 10/18/2024 2:15 PM CAN FILLING MACHINE OPERATOR [facility] 1 [place] [address] Oswaldo Serrano MD #[address] [place] [address] Discharge Disposition: Discharged to home or Selfcare 11/29/2024 2:30 PM CAN FILLING MACHINE OPERATOR Office Visit [facility] #2 [place] [address] Oswaldo Serrano MD #[address] [address] 11/30/2024 3:00 PM CAN FILLING MACHINE OPERATOR [facility] #2 [place] [address] Ok Jorge MD #[address] [address] documented as of this encounter Visit Diagnoses Not on filedocumented in this encounter Additional Health Concerns Assessment Noted Time PHQ-9 Depression Total Score: 2 07/18/20 20 4:26 PM CDT documented as of this encounter Care Teams Hall Porter Relationship Specialty Start Date End Date Oswaldo Serrano MD #[address] [address] PCP - General Family Medicine 05/19/17 Angel Crowe DPM #[address] [address] Consulting Physician Podiatry 06/16/17 Mora Fritz [place] Behavioral Health Navigator 06/15/18 documented as of this encounter
--- OUTSIDE RECORDS SUMMARY | 2024-10-07 00:29 | XMS_ITS | Encounter Summary ---
Author Organization [facility] Address [address] [place] [address] Phone Care Team Providers Care Chimney Builder Brick Name Role Phone Oswaldo Serrano MD Primary Care Provider [phone] Angel Crowe DPM Unavailable Mora Fritz Unavailable Unavailable Reason for Visit * Reason Comments Joint Pain Encounter Details Date Type Department Care Team (Late st Contact Info) Description 09/16/2020 1:45 PM OIL WELL PUMPER Telemedicine [facility] #2 [place] [address] Oswaldo Serrano MD #[address] [address] Chronic joint pain (Primary Dx) Social History Tobacco Use Types [...] COVID-19? No / Unsure 09/11/2020 1:18 PM OIL WELL PUMPER documented as of this encounter Progress Notes * Oswaldo Serrano MD - 09/16/2020 1:45 PM CST Patient was assessed via telephone for a duration of 5 minutes. Patient verbally consented for thisservice to be performed and billed. CC: Chronic joint pain. S: Patient complains of chronic joint pain and has family history of rheumatoid arthritis. Would like to be evaluated for this. Has pain in fingers & hands & burning feeling. O: Psych: alert & oriented. A/P: 1. Chronic joint pain - check BMP, Mg, uric acid, rheumatoid factor, & CCP-3. 2. F/U with me in 2 months. WELL PUMPER documented in this encounter Plan of Treatment Upcoming Encounters Date Type Department Care Team (Late st Contact Info) Description 10/08/2024 2:15 PM OIL WELL PUMPER Office Visit [facility] #2 [place] [address] Orlin Urbina, SAND CLEANING MACHINE OPERATOR, METAL DRILLING MACHINE OPERATOR #2 [place] [address] 10/18/2024 2:15 PM OIL WELL PUMPER Appointment [facility] Mammography 1 [place] [address] Oswaldo Serrano MD #2 [facility] [address] [place] [address] Discharge Disposition: Discharged to home or Selfcare 11/29/2024 2:30 PM OIL WELL PUMPER [facility] Visit [facility] - [facility] - [place] #2 [place] [address] Oswaldo Serrano MD #2 [facility] [address] [place] [address] 11/30/2024 3:00 PM OIL WELL PUMPER Office Visit [facility] - Endocrinology - [place] #2 [place] [address] Ok Jorge MD #2 [facility] [address] [place] [address] documented as of this encounter Results * (ABNORMAL) CREATINE KINASE (CK) TOTAL (12/13/2020 11:37 AM OIL WELL PUMPER) CK (CPK) 206(H) 26 - 192 U/L 12/13/2020 1:25 PM OIL WELL PUMPER [facility] Blood Venipuncture / Unknown 12/13/2020 11:37 AM OIL WELL PUMPER 12/13/2020 12:06 PM OIL WELL PUMPER Oswaldo Serrano MD HEMATOLOGY ORDERABLES Final Result [facility] #1 [place] [address] * MAGNESIUM (MG) (12/13/2020 11:37 AM OIL WELL PUMPER) MAGNESIUM 2.0 1.8 - 2.5 mg/dL 12/13/2020 1:25 PM OIL WELL PUMPER [facility] Blood Venipuncture / Unknown 12/13/2020 11:37 AM OIL WELL PUMPER 12/13/2020 12:06 PM OIL WELL PUMPER Oswaldo Serrano MD CHEMISTRY ORDERABLES Final Result [facility] #1 [place] [address] * (ABNORMAL) BASIC METABOLIC PANEL W/ CALCIUM TOTAL (12/13/2020 11:37 AM OIL WELL PUMPER) SODIUM 137 136 - 144 mmol/L 12/13/2020 1:25 PM OIL WELL PUMPER [facility] POTASSIUM 4.1 3.5 - 5.1 mmol/L 12/13/2020 1:25 PM [facility] CHLORIDE 102 100 - 110 mmol/L 12/13/2020 1:25 PM [facility] CO2, VENOUS 29 22 - 32 mmol/L 12/13/2020 1:25 PM [facility] ANION GAP 10.1 8.0 - 20.0 mmol/L 12/13/2020 1:25 PM [facility] GLUCOSE 165(H) 70 - 99 mg/dL 12/13/2020 1:25 PM [facility] BUN 19 6 - 20 mg/dL 12/13/2020 1:25 PM [facility] CREATININE, BLOOD 0.80 0.60 - 1.10 mg/dL 12/13/2020 1:25 PM [facility] BUN/CREATININE RATIO 24(H) 12 - 20 ratio 12/13/2020 1:25 PM [facility] CALCIUM 9.2 8.9 - 10.3 mg/dL 12/13/2020 1:25 PM [facility] GFR, EST. NONAFRICAN >60 >=60 12/13/2020 1:25 PM [facility] GFR, EST. >60 >=60 12/13/2020 1:25 PM [facility] Comment: Creatinine Clearance is the preferred criteria for selecting drug dose adjustments in renally impaired patients. ??The GFR is provided as additional pertinent clinical information. GFR is reported in mL/min/1.73 sq m. IS THE PATIENT REQUIRED TO BE FASTING? No 12/13/2020 1:25 PM OIL WELL PUMPER [facility] Blood Venipuncture / Unknown 12/13/2020 11:37 AM OIL WELL PUMPER 12/13/2020 12:06 PM OIL WELL PUMPER Oswaldo Serrano MD CHEMISTRY ORDERABLES Final Result Performing Organization Address City/[facility]/ZIP Co de Phone Number [facility] #1 [place] [address] * CYCLIC CITRULLINATED PEPTIDE 3 (12/13/2020 11:37 AM OIL WELL PUMPER) CCP IGG 0.7 <3.0 U/mL 12/15/2020 11:37 AM OIL WELL PUMPER [facility] Blood Venipuncture / Unknown 12/13/2020 11:37 AM OIL WELL PUMPER 12/13/2020 12:07 PM OIL WELL PUMPER Narrative [facility] - 12/15/2020 11:37 AM OIL WELL PUMPER Antibody testing was performed by multiplex flow immunoassay on the [employer] platform. Oswaldo Serrano MD IMMUNOLOGY ORDERABLES Final Result Performing Organization Address City/[facility]/ZIP Co de Phone Number [facility] [address] [place] [address], [place] * RHEUMATOID FACTOR (RFQT) QUANT (12/13/2020 11:37 AM OIL WELL PUMPER) RHEUMATOID FACTOR QT <11 <14 IU/mL 12/13/2020 1:25 PM OIL WELL PUMPER [facility] Blood Venipuncture / Unknown 12/13/2020 11:37 AM OIL WELL PUMPER 12/13/2020 12:06 PM OIL WELL PUMPER Narrative [facility] - 12/13/2020 1:25 PM OIL WELL PUMPER RHEUMATOID FACTORS CAN BE FOUND IN RHEUMATOID ARTHRITIS, SYPHILIS, VIRAL INFECTIONS, LEPROSY, CHRONIC LIVER DISEASE, NEOPLASMS, AND OTHER INFLAMMATORY CONDITIONS. RF PREVALENCE ALSO INCREASES WITH AGE. THUS A POSITIVE TEST IS NOT RESTRICTED TO RA. CONVERSELY, A NEGATIVE TEST DOES NOT RULE OUT RA, RHEUMATOID FACTORS ARE NOT DETECTABLE IN 10% OF ADULTS WITH THE DISEASE. Oswaldo Serrano MD CHEMISTRY ORDERABLES Final Result Performing Organization Address City/[facility]/ZIP Co de Phone Number [facility] #[address] [place] [address] * URIC ACID (BLOOD ASSAY) (12/13/2020 11:37 AM OIL WELL PUMPER) URIC ACID 5.4 2.4 - 5.7 mg/dL 12/13/2020 1:25 PM OIL WELL PUMPER [facility] Blood Venipuncture / Unknown 12/13/2020 11:37 AM OIL WELL PUMPER 12/13/2020 12:06 PM OIL WELL PUMPER Oswaldo Serrano MD CHEMISTRY ORDERABLES Final Result Performing Organization Address City/[facility] Co de Phone Number [facility] #[address] [place] [address] documented in this encounter Visit Diagnoses Diagnosis Chronic joint pain- Primary Pain in joint, site unspecified documented in this encounter Additional Health Concerns Assessment Noted Time PHQ-9 Depression Total Score: 2 07/18/20 20 4:26 PM CDT documented as of this encounter Care Teams Chimney Builder Brick Relationship Specialty Start Date End Date Oswaldo Serrano MD #[address] [address] PCP - General Family Medicine 05/19/17 Angel Crowe DPM #[address] [address] Consulting Physician Podiatry 06/16/17 Mora Fritz Behavioral Health Navigator 06/15/18 documented as of this encounter
--- OUTSIDE RECORDS SUMMARY | 2024-10-07 00:29 | XMS_ITS | Encounter Summary ---
Author Organization [facility] Address [address] [place] [address] Phone Care Team Providers Care Build Engineer Name Role Phone Oswaldo Serrano MD Primary Care Provider [phone] Angel Crowe DPM Unavailable [phone] Mora Fritz Unavailable Unavailable Ok Jorge MD Unavailable Orlin Urbina APRN, PHYSICAL THERAPY AIDE Unavailable [phone] Reason for Visit * Reason Comments Medication Refill Encounter Details Date Type Department Care Team (Late st Contact Info) Description 07/31/2020 Refill [facility] - [place] #2 [place] [address] Connor Yuan APRN, PHYSICAL THERAPY AIDE #[address] [address] Medication Refill Social History Tobacco Use Types [...] encounter Miscellaneous Notes * Telephone Encounter - Debi Cage RN - 08/01/2020 9:55 AM CDT VITAMIN D, 25 HYDROXY TOTAL Order: [id number] Status: Final result ?Visible to patient: Yes (wedgies) Dx: Vitamin D deficiency Ref Range & Units 3mo ago 2yr ago 3yr ago VITAMIN D, 25 HYDROX >=30 ng/mL 27Low 23Low 14Low Resulting Agency [facility] April 08, 2020 ? 7:17 AM Connor Yuan APN, PHYSICAL THERAPY AIDE routed this conversation to [facility] Nurse [place] Connor Yuan APN, PHYSICAL THERAPY AIDE ?? 7:16 AM Note Please call patient POA and let her know that her vitamin D was low. Will send over 3 months worth of prescription therapy and then recheck. Orders entered. [place] message sent to patient to have vitamin D re checked. Has active order. documented in this encounter Plan of Treatment Upcoming Encounters Date Type Department Care Team (Late st Contact Info) Description 10/08/2024 2:15 PM MAGISTERIAL DISTRICT JUDGE Office Visit [facility] #2 [place] [address] Orlin Urbina APRN, PHYSICAL THERAPY AIDE #2 [place] [address] 10/18/2024 2:15 PM MAGISTERIAL DISTRICT JUDGE [facility]ointment [facility] 1 [place] [address] Oswaldo Serrano MD #[address] [address] Discharge Disposition: Discharged to home or Selfcare 11/29/2024 2:30 PM MAGISTERIAL DISTRICT JUDGE Office Visit [facility] #2 [place] [address] Oswaldo Serrano MD #[address] [address] 11/30/2024 3:00 PM MAGISTERIAL DISTRICT JUDGE Office Visit [facility] - Endocrinology [facility] #2 [place] [address] Ok Jorge MD #[address] [place] [address] documented as of this encounter Visit Diagnoses Diagnosis Vitamin D deficiency Unspecified vitamin D deficiency documented in this encounter Additional Health Concerns Infection Onset Date Last Indicated Resolved Time COVID - 19 10/09/2020 10/09/2020 10/11/2020 5:17 AM MAGISTERIAL DISTRICT JUDGE COVID - 19 11/12/2020 11/12/2020 11/16/2020 9:49 AM MAGISTERIAL DISTRICT JUDGE COVID - 19 07/28/2021 07/29/2021 08/17/2021 12:1 6 AM MAGISTERIAL DISTRICT JUDGE Assessment Noted Time PHQ-9 Depression Total Score: 2 07/18/20 4:26 PM CDT documented as of this encounter Care Teams Build Engineer Relationship Specialty Start Date End Date Oswaldo Serrano MD #2 [facility] [address] [place] [address] PCP - General Family Medicine 05/19/17 Angel Crowe DPM #2 [facility] [address] [place] [address] Consulting Physician Podiatry 06/16/17 Mora Fritz PA Behavioral Health Navigator 06/15/18 Ok Jorge MD #[address] [address] Consulting Physician Endocrinology 05/12/22 Orlin Urbina APRN, PHYSICAL THERAPY AIDE #2 [place] [address] Nurse Practitioner Advanced Practice Nurse 11/09/22 documented as of this encounter
--- OUTSIDE RECORDS SUMMARY | 2024-10-07 00:29 | XMS_ITS | Encounter Summary ---
Author Organization [facility] Address [address] [place] [address] Phone Care Team Providers Care Heading Up Machine Operator Name Role Phone Oswaldo Serrano MD Primary Care Provider [phone] Angel Crowe DPM Unavailable Mora Fritz Unavailable Unavailable Reason for Visit * Reason Onset Date Comments Results 09/11/2020 Encounter Details Date Type Department Care Team (Late st Contact Info) Description 09/11/2020 Telephone [facility] #2 [place] [address] Connor Yuan, GLOBAL POSITION SYSTEM TECHNICIAN, GRAIN MILL PRODUCTS INSPECTOR #[address] [address] Results Social History Tobacco Use Types Packs/Day [...] COVID-19? No / Unsure 09/11/2020 1:18 PM SECURITY SCREENER documented as of this encounter Miscellaneous Notes * Telephone Encounter - Mervat Saldana RN - 09/16/2020 2:37 PM CST Patient was notified and verbalized understanding. RITY SCREENER * Telephone Encounter - Jessica Posada RN - 09/11/2020 6:53 PM CST Left message for patient to call back. RITY SCREENER * Telephone Encounter - Connor Yuan APN, CNP - 09/11/2020 3:33 PM CST Please call patient/caregiver and let her know that her vitamin D is still low. Recommend 3 more months of therapy and then recheck. Orders entered. RITY SCREENER documented in this encounter Plan of Treatment Upcoming Encounters Date Type Department Care Team (Late st Contact Info) Description 10/08/2024 2:15 PM SECURITY SCREENER Office Visit [facility] #2 [place] [address] Orlin Urbina APRN, GRAIN MILL PRODUCTS INSPECTOR #2 [place] [address] 10/18/2024 2:15 PM SECURITY SCREENER [facility]ment [facility] 1 [place] [address] Oswaldo Serrano MD #2 [facility] [address] [place] [address] Discharge Disposition: Discharged to home or Selfcare 11/29/2024 2:30 PM SECURITY SCREENER Office Visit [facility] - [place] #2 [place] [address] Oswaldo Serrano MD #2 [facility] [address] [place] [address] 11/30/2024 3:00 PM SECURITY SCREENER Office Visit [facility] - Endocrinology - [place] #2 [place] [address] Ok Jorge MD #[address] [place] [address] documented as of this encounter Results * (ABNORMAL) VITAMIN D, 25 HYDROXY TOTAL (12/13/2020 11:37 AM SECURITY SCREENER) VITAMIN D, 25 HYDROX 26(L) >=30 ng/mL 12/13/2020 1:38 PM SECURITY SCREENER [facility] Blood Venipuncture / Unknown 12/13/2020 11:37 AM SECURITY SCREENER 12/13/2020 12:[address] [facility] - 12/13/2020 1:38 PM SECURITY SCREENER Published reference ranges for Vitamin D vary depending on time and place and method of testing, and on patient's age, sex, ethnicity and levels of other measured analytes such as parathormone, calcium and phosphorus. ??The result should be evaluated in conjunction with clinical findings and suspicions. [employer] of [employer] and Endocrine Clinical Practice Guidelines: Status Vitamin D levels (ng/mL) Deficient <=20 At risk of inadequacy 21-29 Sufficient 30-100 Centers of Disease Control and Prevention Guidelines: Status Vitamin D levels (ng/mL) Deficient <13 At risk of inadequacy 13-19 Sufficient 20-50 Possibly harmful >50 References: [employer], 2010 Dietary reference intakes for calcium and vitamin D. Guidry [place]: ??The National Academies Press. Eve M, Forrest N, Maksim BIRCH, et al., Evaluation, treatment, and prevention of Vitamin D deficiency: an Endocrinology Clinical Practice Guideline. JCEM 2011 96: 7 7229-0736. Faiza A, Manjinder C, Tyson D, et al., Vitamin D Status: ??[place], 2000- 1005, [facility] data brief, no. 59, MD Claudia: ??National [place] for Health Statistics. 2010. us Connor Yuan APRN, GRAIN MILL PRODUCTS INSPECTOR CHEMISTRY ORDERA BLES Final Result [facility] #1 [place] [address] documented in this encounter Visit Diagnoses Diagnosis Vitamin D deficiency- Primary Unspecified vitamin D deficiency documented in this encounter Additional Health Concerns Assessment Noted Time PHQ-9 Depression Total Score: 2 07/18/20 20 4:26 PM CDT documented as of this encounter Care Teams Heading Up Machine Operator Relationship Specialty Start Date End Date Oswaldo Serrano MD #[address] [address] PCP - General Family Medicine 05/19/17 Angel Crowe DPM #[address] [address] Consulting Physician Podiatry 06/16/17 Mora Fritz Behavioral Health Navigator 06/15/18 documented as of this encounter
--- OUTSIDE RECORDS SUMMARY | 2024-10-07 00:29 | XMS_ITS | Encounter Summary ---
Author Organization [facility] Address [address] [place] [address] Phone Care Team Providers Care Data Entry Coordinator Name Role Phone Oswaldo Serrano MD Primary Care Provider [phone] Angel Crowe DPM Unavailable Mora Fritz Unavailable Unavailable Ok Jorge MD Unavailable Orlin Urbina APRN, OFFICE WORKFORCE PLANNER Unavailable Reason for Visit * Reason Comments Medication Refill Encounter Details Date Type Department Care Team (Late st Contact Info) Description 08/20/2020 Refill [facility] - [place] #2 [place] [address] Connor Yuan APRN, OFFICE WORKFORCE PLANNER #[address] [address] Medication Refill Social History Tobacco Use Types [...] COVID-19? No / Unsure 08/11/2020 2:55 PM TEMPERER documented as of this encounter Miscellaneous Notes * Telephone Encounter - Connie Gamez RN - 08/20/2020 4:35 PM CST Request for this Med has been requested four times today. ERER documented in this encounter Plan of Treatment Upcoming Encounters Date Type Department Care Team (Late st Contact Info) Description 10/08/2024 2:15 PM TEMPERER Office Visit [facility] UROLOGY #2 [place] [address] Orlin Urbina, CLINIC CMA, OFFICE WORKFORCE PLANNER #2 [place] [address] 10/18/2024 2:15 PM TEMPERER Appointment [facility] Mammography 1 [place] [address] Oswaldo Serrano MD #[address] [address] Discharge Disposition: Discharged to home or Selfcare 11/29/2024 2:30 PM TEMPERER Office Visit [facility] - Family Medicine [facility] #2 [place] [address] Oswaldo Serrano MD #[address] [address] 11/30/2024 3:00 PM TEMPERER Office Visit [facility] - Endocrinology - [place] #2 [place] [address] Ok Jorge MD #[address] [address] documented as of this encounter Visit Diagnoses Diagnosis Vitamin D deficiency Unspecified vitamin D deficiency documented in this encounter Additional Health Concerns Infection Onset Date Last Indicated Resolved Time COVID - 19 10/09/2020 10/09/2020 10/11/2020 5:17 AM TEMPERER COVID - 19 11/12/2020 11/12/2020 11/16/2020 9:49 AM TEMPERER COVID - 19 07/28/2021 07/29/2021 08/17/2021 12:1 6 AM TEMPERER Assessment Noted Time PHQ-9 Depression Total Score: 2 07/18/20 20 4:26 PM CDT documented as of this encounter Care Teams Data Entry Coordinator Relationship Specialty Start Date End Date Oswaldo Serrano MD #[address] [address] PCP - General Family Medicine 05/19/17 Angel Crowe DPM #[address] [address] Consulting Physician Podiatry 06/16/17 Mora Fritz Behavioral Health Navigator 06/15/18 Ok Jorge MD #[address] [address] Consulting Physician Endocrinology 05/12/22 Orlin Urbina, CLINIC CMA, OFFICE WORKFORCE PLANNER #2 [place] [address] Nurse Practitioner Advanced Practice Nurse 11/09/22 documented as of this encounter
--- OUTSIDE RECORDS SUMMARY | 2024-10-07 00:29 | XMS_ITS | Encounter Summary ---
Author Organization [facility] Address [address] [place] [address] Phone Care Team Providers Care Belting Inspector Name Role Phone Oswaldo Serrano MD Primary Care Provider Angel Crowe DPM Unavailable Mora Fritz Unavailable Unavailable Reason for Visit * Reason Onset Date Comments Appointment 10/07/2020 follow up appoin tment needed Encounter Details Date Type Department Care Team (Late st Contact Info) Description 10/07/2020 Telephone [facility] UR[facility]Y #2 [place] [address] Carson Michel MD [address] [facility] [address] [place] [address] Appointment (follow up appointment needed) Social History Tobacco Use Types Packs/Day Years [...] COVID-19? No / Unsure 09/11/2020 1:18 PM CUSTOMER SERVICES MANAGER documented as of this encounter Miscellaneous Notes * Telephone Encounter - Krystal Ramsay RN - 10/07/2020 2:42 PM CST Left message for patient's sister to return call to office to schedule follow up appointment. OMER SERVICES MANAGER documented in this encounter Plan of Treatment Upcoming Encounters Date Type Department Care Team (Late st Contact Info) Description 10/08/2024 2:15 PM CUSTOMER SERVICES MANAGER Office Visit [facility] UR[facility]Y #2 [place] [address] Orlin Urbina APRN, PAD ASSEMBLER #2 [place] [address] 10/18/2024 2:15 PM CUSTOMER SERVICES MANAGER Appointment [facility] Mammography 1 [place] [address] Oswaldo Serrano MD #[address] [address] Discharge Disposition: Discharged to home or Selfcare 11/29/2024 2:30 PM CUSTOMER SERVICES MANAGER Office Visit [facility] - Family Medicine [facility] #2 [place] [address] Oswaldo Serrano MD #2 [facility] [address] [place] [address] 11/30/2024 3:00 PM CUSTOMER SERVICES MANAGER Office Visit [facility] - Endocrinology [facility] #2 [place] [address] Ok Jorge MD #[address] [address] documented as of this encounter Visit Diagnoses Not on filedocumented in this encounter Additional Health Concerns Assessment Noted Time PHQ-9 Depression Total Score: 2 07/18/20 20 4:26 PM CDT documented as of this encounter Care Teams Belting Inspector Relationship Specialty Start Date End Date Oswaldo Serrano MD #[address] [address] PCP - General Family Medicine 05/19/17 Angel Crowe DPM #[address] [address] Consulting Physician Podiatry 06/16/17 Mora Fritz Behavioral Health Navigator 06/15/18 documented as of this encounter
--- OUTSIDE RECORDS SUMMARY | 2024-10-07 00:29 | XMS_ITS | Encounter Summary ---
Author Organization [facility] Address [address] [place] [address] Phone Care Team Providers Care Vegetable Cook Name Role Phone Oswaldo Serrano MD Primary Care Provider Angel Crowe DPM Unavailable Mora Fritz Unavailable Unavailable Reason for Visit * Reason Comments Medication Refill Encounter Details Date Type Department Care Team (Late st Contact Info) Description 09/17/2020 Refill [facility] #2 [place] [address] Oswaldo Serrano MD #[address] [address] Medication Refill Social History Tobacco Use Types [...] COVID-19? No / Unsure 09/11/2020 1:18 PM DRINK BOX MECHANIC documented as of this encounter Miscellaneous Notes * Telephone Encounter - Mica Morales RN - 09/17/2020 1:57 PM CST Medication(s) refilled and signed per [facility] Chronic Medication Refill Standing Order for Pediatricand Adult Patients. Requested Prescriptions Pending Prescriptions Disp Refills ??? levothyroxine (SYNTHROID) 50 MCG Tablet [Pharmacy Med Name: LEVOTHYROXIN 50MCG TAB SAND] 90 Tab0 Sig: TAKE ONE TABLET BY MOUTH DAILY IN THE MORNING Endocrinology: Hypothyroid Agents Passed - 09/17/2020 1:47 PM Passed - Valid encounter within last 12 months Past Office Visits Recent Outpatient Visits Yesterday Chronic joint pain [facility] Family Medicine - Oswaldo Moreno MD 2 months ago Diabetic polyneuropathy associated with type 2 diabetes mellitus (HCC) [facility] Family [facility] - Connor Hutchinson APN, AUTOMATED ACCESS SYSTEMS TECHNICIAN 2 months ago Acute diarrhea [facility] Family [facility] - Connor Hutchinson APN, AUTOMATED ACCESS SYSTEMS TECHNICIAN 3 months ago Tick bite, initial encounter [facility] Family [facility] - Oswaldo Moreno MD 3 months ago Diarrhea, unspecified type [facility] Oswaldo Tan MD Upcoming Appointments Future Appointments In 1 month Ok Jorge MD [facility] Medical Group Endocrinology - MARLI Hearn GEOPHYSICAL ENGINEER - Recent and Past Visits Recent Visits Date Type Provider Dept 09/16/20 Telemedicine Oswaldo Serrano MD [facility] 07/18/20 Office Visit Connor Yuan APN, YUDI [facility] 07/11/20 Telemedicine Connor Yuan APN, YUDI [facility] 06/09/20 Office Visit Oswaldo Serrano MD [facility] 05/29/20 Telemedicine Oswaldo Serrano, [facility] 04/07/20 Office Visit Connor Yuan APN, YUDI [facility] 03/18/20 Telemedicine Oswaldo Serrano MD [facility] 12/14/19 Office Visit Earl Merry Hendrickson, [facility] 08/28/19 Office Visit Oswaldo Serrano, [facility] 06/22/19 Office Visit Connor Yuan APN, AUTOMATED ACCESS SYSTEMS TECHNICIAN [facility] Showing recent visits within past 460 days [...] 06/09/2020 3.900 0.270 - 4.200 mIU/L Final K BOX MECHANIC documented in this encounter Plan of Treatment Upcoming Encounters Date Type Department Care Team (Late st Contact Info) Description 10/08/2024 2:15 PM DRINK BOX MECHANIC Office Visit [facility] UROLOGY #2 [place] [address] Orlin Urbina APRN, AUTOMATED ACCESS SYSTEMS TECHNICIAN #2 [place] [address] 10/18/2024 2:15 PM DRINK BOX MECHANIC Appointment [facility] Mamm[facility] 1 [place] [address] Oswaldo Serrano MD #[address] [address] Discharge Disposition: Discharged to home or Selfcare 11/29/2024 2:30 PM DRINK BOX MECHANIC Office Visit [facility] Family Medicine [facility] #2 [place] [address] Oswaldo Serrano MD #[address] [address] 11/30/2024 3:00 PM DRINK BOX MECHANIC Office Visit [facility] Endocrinology [facility] #2 [place] [address] Ok Jorge MD #[address] [address] documented as of this encounter Visit Diagnoses Not on filedocumented in this encounter Additional Health Concerns Assessment Noted Time PHQ-9 Depression Total Score: 2 07/18/20 20 4:26 PM CDT documented as of this encounter Care Teams Vegetable Cook Relationship Specialty Start Date End Date Oswaldo Serrano MD #[address] [address] PCP - General Family Medicine 05/19/17 Angel Crowe DPM #[address] [address] Consulting Physician Podiatry 06/16/17 Mora Fritz [place] Behavioral Health Navigator 06/15/18 documented as of this encounter
--- OUTSIDE RECORDS SUMMARY | 2024-10-07 00:29 | XMS_ITS | Encounter Summary ---
Author Organization [facility] Address [address] [facility] [place] [address] Phone Care Team Providers Care Air Intercept Controller Supervisor Name Role Phone Oswaldo Serrano MD Primary Care Provider [phone] Angel Crowe DPM Unavailable Mora Fritz Unavailable Unavailable Reason for Visit * Reason Onset Date Comments Ear Pain 10/09/2020 Ear Drainage 10/09/2020 Encounter Details Date Type Department Care Team (Late st Contact Info) Description 10/09/2020 Nurse Triage [facility] [address] [place] [address] Oswaldo Serrano MD #[address] [address] Ear Pain; Ear Drainage Social History Tobacco Use Types Packs/Day Years [...] COVID-19? No / Unsure 09/11/2020 1:18 PM TELETYPESETTER OPERATOR documented as of this encounter Miscellaneous Notes * Telephone Encounter - Oswaldo Serrano MD - 10/09/2020 10:27 AM TELETYPESETTER OPERATOR Thanks for scheduling her! TYPESETTER OPERATOR * Telephone Encounter - Madhavi Gong RN - 10/09/2020 10:12 AM TELETYPESETTER OPERATOR Situation: States Loretta has a bad ear infection. Background: Complex Assessment: She believes it's her left ear. Symptoms started a little less than a month ago. Thought the abx for UTI would take care of the ear also. Does have drainage--unsure if there is color. Neck below the ear is a little swollen Denies hearing loss Loretta said the ear felt hot yesterday. Denies fever. Recommendation: Scheduled with MD today at 4:15 Reason for Disposition ??? Severe earache pain First positive answer recorded, all responses to prior questions were negative. Protocols used: [id number] TYPESETTER OPERATOR documented in this encounter Plan of Treatment Upcoming Encounters Date Type Department Care Team (Late st Contact Info) Description 10/08/2024 2:15 PM TELETYPESETTER OPERATOR Office Visit [facility] UROLOGY #2 [place] [address] Orlin Urbina, DIE ASSEMBLER, WINDSHIELD TECHNICIAN #2 [place] [address] 10/18/2024 2:15 PM TELETYPESETTER OPERATOR [facility]ment [facility] 1 [place] [address] Oswaldo Serrano MD #[address] [address] Discharge Disposition: Discharged to home or Selfcare 11/29/2024 2:30 PM TELETYPESETTER OPERATOR [facility] #2 [place] [address] Oswaldo Serrano MD #[address] [address] 11/30/2024 3:00 PM TELETYPESETTER OPERATOR Office Visit [facility] - Endocrinology - [place] #2 [place] [address] Ok Jorge MD #[address] [address] documented as of this encounter Visit Diagnoses Not on filedocumented in this encounter Additional Health Concerns Assessment Noted Time PHQ-9 Depression Total Score: 2 07/18/20 20 4:26 PM CDT documented as of this encounter Care Teams Air Intercept Controller Supervisor Relationship Specialty Start Date End Date Oswaldo Serrano MD #[address] [address] PCP - General Family Medicine 05/19/17 Angel Crowe DPM #[address] [address] Consulting Physician Podiatry 06/16/17 Mora Fritz Behavioral Health Navigator 06/15/18 documented as of this encounter
--- OUTSIDE RECORDS SUMMARY | 2024-10-07 00:29 | XMS_ITS | Encounter Summary ---
Author Organization [facility] Address [address] [place] [address] Phone Care Team Providers Care Otter Trawler Boatswain Name Role Phone Oswaldo Serrano MD Primary Care Provider Angel Crowe DPM Unavailable Mora Fritz Unavailable Unavailable Encounter Details Date Type Department Care Team (Late st Contact Info) Description 10/04/2020 Telephone [facility] Family Medicine [facility] #2 [place] [phone] Oswaldo Serrano MD #[address] [address] Social History Tobacco Use Types Packs/Day Years [...] COVID-19? No / Unsure 10/09/2020 4:02 PM PROMOTIONS INTERN documented as of this encounter Miscellaneous Notes * Telephone Encounter - Oswaldo Serrano MD - 10/11/2020 5:24 PM PROMOTIONS INTERN DONE. OTIONS INTERN documented in this encounter Plan of Treatment Upcoming Encounters Date Type Department Care Team (Late st Contact Info) Description 10/08/2024 2:15 PM PROMOTIONS INTERN Office Visit [facility] #2 [place] [address] Orlin Urbina, EDUCATIONAL ASSISTANT TEACHER, SHOW DESIGN SUPERVISOR #2 [place] [address] 10/18/2024 2:15 PM PROMOTIONS INTERN Appointment [facility] Mammography 1 [place] [address] Oswaldo Serrano MD #[address] [address] Discharge Disposition: Discharged to home or Selfcare 11/29/2024 2:30 PM PROMOTIONS INTERN Office Visit [facility] - Family Medicine [facility] #2 [place] [address] Oswaldo Serrano MD #[address] [address] 11/30/2024 3:00 PM PROMOTIONS INTERN Office Visit [facility] - Endocrinology - [place] [address] [place] [address] Ok Jorge MD #[address] [phone] documented as of this encounter Results * (ABNORMAL) HEPATIC FUNCTION PANEL (12/13/2020 11:37 AM PROMOTIONS INTERN) T BILI 0.5 <=1.2 mg/dL 12/13/2020 1:25 PM PROMOTIONS INTERN [facility] BILIRUBIN,DIRECT <0.3 <=0.3 mg/dL 12/13/2020 1:25 PM PROMOTIONS INTERN [facility] ALKALINE PHOSPHATASE 130(H) 35 - 105 U/L 12/13/2020 1:25 PM PROMOTIONS INTERN [facility] SGOT (AST) 18 <=32 U/L 12/13/2020 1:25 PM PROMOTIONS INTERN [facility] SGPT (ALT) 15 <=41 U/L 12/13/2020 1:25 PM PROMOTIONS INTERN [facility] TOTAL PROTEIN 6.9 6.0 - 8.3 g/dL 12/13/2020 1:25 PM PROMOTIONS INTERN [facility] ALBUMIN 3.8 3.5 - 5.2 g/dL 12/13/2020 1:25 PM PROMOTIONS INTERN [facility] Comment: The colormetric methods used for the determination of Albumin may lead to falsely elevated test results in patients suffering from renal failure or insufficiency due to interference with other proteins. Blood Venipuncture / Unknown 12/13/2020 11:37 AM PROMOTIONS INTERN 12/13/2020 12:06 PM PROMOTIONS INTERN Oswaldo Serrano MD CHEMISTRY ORDERABLES Final Result [facility] #1 [place] [address] documented in this encounter Visit Diagnoses Diagnosis Elevated LFTs- Primary Other abnormal blood chemistry documented in this encounter Additional Health Concerns Infection Onset Date Last Indicated Resolved Time COVID - 19 10/09/2020 10/09/2020 10/11/2020 5:17 AM PROMOTIONS INTERN Assessment Noted Time PHQ-9 Depression Total Score: 2 07/18/20 20 4:26 PM CDT documented as of this encounter Care Teams Otter Trawler Boatswain Relationship Specialty Start Date End Date Oswaldo Serrano MD #[address] [address] PCP - General Family Medicine 05/19/17 Angel Crowe DPM #[address] [address] Consulting Physician Podiatry 06/16/17 Mora Fritz Behavioral Health Navigator 06/15/18 documented as of this encounter
--- OUTSIDE RECORDS SUMMARY | 2024-10-07 00:29 | XMS_ITS | Encounter Summary ---
Author Organization [facility] Address [address] [place] [address] Phone Care Team Providers Care Engine Dynamometer Tester Name Role Phone Oswaldo Serrano MD Primary Care Provider [phone] Angel Crowe DPM Unavailable Mora Fritz Unavailable Unavailable Reason for Visit * Reason Onset Date Comments Medication Refill 09/16/2020 Encounter Details Date Type Department Care Team (Late st Contact Info) Description 09/16/2020 Telephone [facility] [address] [place] [address] Oswaldo Serrano MD #[address] [address] Medication Refill Social History Tobacco Use Types [...] COVID-19? No / Unsure 09/11/2020 1:18 PM SPRAY PILOT documented as of this encounter Miscellaneous Notes * Telephone Encounter - Tina Benitez CMA - 09/16/2020 2:12 PM CST AuctionPay message sent to patient. Y PILOT * Telephone Encounter - Oswaldo Serrano MD - 09/16/2020 2:03 PM SPRAY PILOT Schedule her to see me in office in-person in 2 months. Thanks! Y PILOT * Telephone Encounter - Mica Morales RN - 09/16/2020 8:47 AM CST Medication failed the protocol, provider to review and approve the medication order if appropriate. Requested Prescriptions Pending Prescriptions Disp Refills nortriptyline (PAMELOR) 10 MG Capsule 90 Cap 3 Sig: Take 1 Cap by mouth nightly. Not Delegated - Psychiatry: Antidepressants - Heterocyclics (TCAs) Failed - 09/16/2020 8:25 AM Failed - This refill cannot be delegated Passed - Valid encounter within last 12 months Past Office Visits Recent Outpatient Visits 2 months ago Diabetic polyneuropathy associated with type 2 diabetes mellitus (HCC) [facility] - Connor Hutchinson APN, DEVELOPMENT CONSULTANT 2 months ago Acute diarrhea [facility] - Connor Hutchinson APN, DEVELOPMENT CONSULTANT 3 months ago Tick bite, initial encounter [facility] [place] 3 months ago Diarrhea, unspecified type [facility] Oswaldo Moreno MD 5 months ago Hemoptysis [facility] APN, DEVELOPMENT CONSULTANT Upcoming Appointments Future Appointments Today Oswaldo Serrano MD [facility] month Ok Jorge MD [facility] Endocrinology [facility] CASTING FINISHER - Recent and Past Visits Recent Visits Date Type Provider Dept 07/18/20 Office Visit Connor Yuan APN, YUDI [facility] [place] 07/11/20 Telemedicine Connor Yuan APN, DEVELOPMENT CONSULTANT [facility] 06/09/20 Office Visit Oswaldo Serrano MD [facility] 05/29/20 Telemedicine Oswaldo Serrano MD [facility] [place] 04/07/20 Office Visit Connor Yuan APN, YUDI [facility] 03/18/20 Telemedicine Oswaldo Serrano MD [facility] [place] 12/14/19 Office Visit Merry Elliott, [facility] 08/28/19 Office Visit Oswaldo Serrano MD [facility] 06/22/19 Office Visit Connor Yuan APN, DEVELOPMENT CONSULTANT [facility] Showing recent visits within past 460 days with a meds authorizing provider and meeting all other requirements Today's Visits Date Type Provider Dept 09/16/20 Appointment Oswaldo Serrano MD [facility] [place] Showing today's visits with a meds authorizing provider and meeting all other requirements Future Appointments No visits were found meeting these conditions. Showing future appointments within next 90 days with a meds authorizing provider and meeting all other requirements Passed - Last BP in normal range BP Readings from Last 1 Encounters: 07/18/20 112/58 Y PILOT * Telephone Encounter - Lou Urbina RN - 09/16/2020 8:23 AM SPRAY PILOT Received: [x]FAX []TELEPHONE CALL []MYCHART from: [x]PHARMACY []PATIENT/OTHER regarding medication management. Medication name and dose: nortriptyline 10mg Quantity: (30 day, 90 day, 3 monthly scripts) 90d Pharmacy preference for this medication: [facility] Outcome: [x]Medication pended, routed to surescripts []Medication refused []Informed caller of refills at pharmacy []Additional message to medication management RN []Verbal authorization for written order to pharmacy []Additional message to provider []Verified medication with pharmacy [facility] medical office rep Management Y PILOT documented in this encounter Plan of Treatment Upcoming Encounters Date Type Department Care Team (Late st Contact Info) Description 10/08/2024 2:15 PM SPRAY PILOT Office Visit [facility] #2 [place] [address] Orlin Urbina, FORM SETTER HELPER, DEVELOPMENT CONSULTANT #2 [place] [address] 10/18/2024 2:15 PM SPRAY PILOT [facility] 1 [place] [address] Oswaldo Serrano MD #[address] [address] Discharge Disposition: Discharged to home or Selfcare 11/29/2024 2:30 PM SPRAY PILOT Office Visit [facility] Medicine [facility] #2 [place] [address] Oswaldo Serrano MD #[address] [address] 11/30/2024 3:00 PM SPRAY PILOT Office Visit [facility] - [facility] - [place] #2 [place] [address] Ok Jorge MD #2 [facility] [address] [place] [address] documented as of this encounter Visit Diagnoses Not on filedocumented in this encounter Additional Health Concerns Assessment Noted Time PHQ-9 Depression Total Score: 2 07/18/20 20 4:26 PM CDT documented as of this encounter Care Teams Engine Dynamometer Tester Relationship Specialty Start Date End Date Oswaldo Serrano MD #2 [facility] [address] [place] [address] PCP - General Family Medicine 05/19/17 Angel Crowe DPM #2 [facility] [address] [place] [address] Consulting Physician Podiatry 06/16/17 Mora Fritz [place] Behavioral Health Navigator 06/15/18 documented as of this encounter
--- OUTSIDE RECORDS SUMMARY | 2024-10-07 00:29 | XMS_ITS | Encounter Summary ---
Author Organization [facility] Address [address] [place] [address] Phone Care Team Providers Care Rough Patcher Name Role Phone Oswaldo Serrano MD Primary Care Provider Angel Crowe DPM Unavailable Mora Fritz Unavailable Unavailable Reason for Visit * Reason Onset Date Comments Results 09/15/2020 urine culture re makenzie Encounter Details Date Type Department Care Team (Late st Contact Info) Description 09/15/2020 Telephone [facility] #2 [facility] [place] [address] Carson Sánchez MD [address] [facility] [address] [place] [address] Results (urine culture results) Social History Tobacco Use Types Packs/Day Years [...] COVID-19? No / Unsure 09/11/2020 1:18 PM UROLOGIC SURGEON documented as of this encounter Miscellaneous Notes * Telephone Encounter - Krystal Osman RN - 09/15/2020 2:41 PM CST Spoke with patient's sister Peg regarding urine culture results and needing to start antibiotic. She verbalized understanding. Medication sent to patient's pharmacy. Requested Prescriptions Signed Prescriptions Disp Refills ??? nitrofurantoin, macrocrystal-monohydrate, (MACROBID) 100 MG Capsule 14 Cap 0 Sig: Take 1 Cap by mouth 2 times daily for 7 days. Authorizing Provider: CARSON SÁNCHEZ Ordering User: KRYSTAL OSMAN OGIC SURGEON * Telephone Encounter - Krystal Osman RN - 09/15/2020 2:38 PM CST ----- Message from Carson Sánchez MD sent at 09/13/2020 1:16 PM UROLOGIC SURGEON ----- Start on macrobid 100mg po bid x 7 days OGIC SURGEON documented in this encounter Plan of Treatment Upcoming Encounters Date Type Department Care Team (Late st Contact Info) Description 10/08/2024 2:15 PM UROLOGIC SURGEON Office Visit [facility] UR[facility] #2 [place] [address] Orlin Urbina, SOFTWARE ADMINISTRATOR, MANAGER FIELD SERVICES #2 [place] [address] 10/18/2024 2:15 PM UROLOGIC SURGEON [facility] 1 [place] [address] Oswaldo Serrano MD #[address] [address] Discharge Disposition: Discharged to home or Selfcare 11/29/2024 2:30 PM UROLOGIC SURGEON Office Visit [facility] Family Medicine [facility] #2 [place] [address] Oswaldo Serrano MD #[address] [address] 11/30/2024 3:00 PM UROLOGIC SURGEON Office Visit [facility] Medical [facility] - Endocrinology - [place] #2 [place] [address] Ok Jorge MD #[address] [address] documented as of this encounter Visit Diagnoses Not on filedocumented in this encounter Additional Health Concerns Assessment Noted Time PHQ-9 Depression Total Score: 2 07/18/20 20 4:26 PM CDT documented as of this encounter Care Teams Rough Patcher Relationship Specialty Start Date End Date Oswaldo Serrano MD #[address] [address] PCP - General Family Medicine 05/19/17 Angel Crowe DPM #[address] [address] Consulting Physician Podiatry 06/16/17 Mora Fritz Behavioral Health Navigator 06/15/18 documented as of this encounter
--- OUTSIDE RECORDS SUMMARY | 2024-10-07 00:29 | XMS_ITS | Encounter Summary ---
Author Organization [facility] Care Team Providers Care Web Ui Designer Name Role Phone Oswaldo Serrano MD Primary Care Provider [phone] Angel Crowe DPM Unavailable [phone] Mora Fritz Unavailable Unavailable Encounter Details Date Type Department Care Team (Latest Contact Info) Description 08/11/2020 Travel Social History Tobacco Use Types Packs/Day [...] COVID-19? No / Unsure 08/11/2020 2:55 PM SENIOR GAME DESIGNER documented as of this encounter Plan of Treatment Upcoming Encounters Date Type Department Care Team (Late st Contact Info) Description 10/08/2024 2:15 PM SENIOR GAME DESIGNER Office Visit [facility] UR[facility] #[address] [place] [address] Orlin Urbina APRN, PUBLIC HEALTH DIRECTOR #2 [place] [address] 10/18/2024 2:15 PM SENIOR GAME DESIGNER [facility] 1 [place] [address] Oswaldo Serrano MD #2 [facility] [address] [place] [address] Discharge Disposition: Discharged to home or Selfcare 11/29/2024 2:30 PM SENIOR GAME DESIGNER Office Visit [facility] - Family Medicine [facility] #2 [place] [address] Oswaldo Serrano MD #2 [facility] [address] [place] [address] 11/30/2024 3:00 PM SENIOR GAME DESIGNER Office Visit [facility] - Endocrinology - [place] #[address] [place] [address] Ok Jorge MD #2 [facility] [address] [place] [address] documented as of this encounter Visit Diagnoses Not on filedocumented in this encounter Additional Health Concerns Assessment Noted Time PHQ-9 Depression Total Score: 2 07/18/20 20 4:26 PM CDT documented as of this encounter Care Teams Web Ui Designer Relationship Specialty Start Date End Date Oswaldo Serrano MD #[address] [address] PCP - General Family Medicine 05/19/17 Angel Crowe DPM #[address] [address] Consulting Physician Podiatry 06/16/17 Mora Fritz Behavioral Health Navigator 06/15/18 documented as of this encounter
--- OUTSIDE RECORDS SUMMARY | 2024-10-07 00:29 | XMS_ITS | Encounter Summary ---
Author Organization [facility] Address [address] [place] [address] Phone Care Team Providers Care Employment Service Specialist Name Role Phone Oswaldo Serrano MD Primary Care Provider nAgel Crowe DPM Unavailable [phone] Mora Fritz Unavailable Unavailable Reason for Visit * Reason Onset Date Comments Medication Refill 09/23/2020 Encounter Details Date Type Department Care Team (Late st Contact Info) Description 09/23/2020 Refill [facility] #2 [place] [phone] Carson Sánchez MD [address] [facility] [address] [place] [address] Medication Refill Social History Tobacco Use Types [...] COVID-19? No / Unsure 09/11/2020 1:18 PM CHILDREN'S ZOO CARETAKER documented as of this encounter Miscellaneous Notes * Telephone Encounter - Krystal Ramsay RN - 09/29/2020 8:59 AM CST Requested Prescriptions Signed Prescriptions Disp Refills ??? nitrofurantoin, macrocrystal-monohydrate, (MACROBID) 100 MG Capsule 14 Cap 0 Sig: Take 1 Cap by mouth 2 times daily for 7 days. Authorizing Provider: CARSON SÁNCHEZ DREN'S ZOO CARETAKER * Telephone Encounter - Krystal Ramsay RN - 09/23/2020 3:55 PM CST Patient's sister left VM that patient lost antibiotics that she was given for UTI and has not takenthem. They would like a refill of the medication. Medication refill pended to Dr. Sánchez. Requested Prescriptions Pending Prescriptions Disp Refills ??? nitrofurantoin, macrocrystal-monohydrate, (MACROBID) 100 MG Capsule 14 Cap 0 Sig: Take 1 Cap by mouth 2 times daily for 7 days. DREN'S ZOO CARETAKER documented in this encounter Plan of Treatment Upcoming Encounters Date Type Department Care Team (Late st Contact Info) Description 10/08/2024 2:15 PM CHILDREN'S ZOO CARETAKER Office Visit [facility] #2 [place] [address] Orlin Urbina, DIRECTOR OF FEDERAL SALES, HUMAN RESOURCE ADVISOR #2 [place] [address] 10/18/2024 2:15 PM CHILDREN'S ZOO CARETAKER [facility] 1 [place] [address] Oswaldo Serrano MD #[address] [address] Discharge Disposition: Discharged to home or Selfcare 11/29/2024 2:30 PM CHILDREN'S ZOO CARETAKER Office Visit [facility] Family Medicine [facility] #2 [place] [address] Oswaldo Serrano MD #[address] [address] 11/30/2024 3:00 PM CHILDREN'S ZOO CARETAKER [facility] - Endocrinology [facility] #2 [place] [address] Ok Jorge MD #[address] [address] documented as of this encounter Visit Diagnoses Not on filedocumented in this encounter Additional Health Concerns Assessment Noted Time PHQ-9 Depression Total Score: 2 07/18/20 20 4:26 PM CDT documented as of this encounter Care Teams Employment Service Specialist Relationship Specialty Start Date End Date Oswaldo Serrano MD #[address] [address] PCP - General Family Medicine 05/19/17 Angel Crowe DPM #[address] [address] Consulting Physician Podiatry 06/16/17 Mora Fritz Behavioral Health Navigator 06/15/18 documented as of this encounter
--- OUTSIDE RECORDS SUMMARY | 2024-10-07 00:29 | XMS_ITS | Encounter Summary ---
Author Organization [facility] Address [address] [place] [address] Phone Care Team Providers Care Personnel And Payroll Technician Name Role Phone Oswaldo Serrano MD Primary Care Provider Angel Crowe DPM Unavailable Mora Fritz Unavailable Unavailable Reason for Visit * Reason Comments Diabetes Mellitus Type 2 DM Encounter Details Date Type Department Care Team (Late st Contact Info) Description 08/11/2020 2:45 PM NET WEB APPLICATION DEVELOPER Telemedicine [facility] - Endocrinology [facility] #2 [place] [address] Ok Jorge MD #[address] [address] Type 2 diabetes mellitus with diabetic polyneuropathy, without long-term current use of insulin (<HCC>) (Primary Dx); Class 3 severe obesity due [...] COVID-19? No / Unsure 08/11/2020 2:55 PM NET WEB APPLICATION DEVELOPER documented as of this encounter Patient Instructions * Patient Instructions* Ok Jorge MD - 08/11/2020 2:45 PM NET WEB APPLICATION DEVELOPER Please take Lantus 12 units in the morning ?? Please take Humalog 14-7-14 units before each meal ?? Please use correctional factor insulin before each meal as directed ?? Please monitor blood sugar before each meal and at bedtime ?? Contact Endocrinology Clinic for low blood sugar events ?? Follow up visit in 3 months ?? RULE OF 15: ??If you [...] 400 ??+10 UNITS > 400 ??+11 UNITS WEB APPLICATION DEVELOPER documented in this encounter Progress Notes * Ok Jorge MD - 08/11/2020 2:45 PM CST CC: Hyperglycemia Loretta Penn is a 59-year-old woman who has type 2 diabetes mellitus. 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 Other pertinent health history includes hypertension, dyslipidemia, and obesity. The patient was initially diagnosed with diabetes >10 years ago. Presently, the patient takes Lantus 16 units in the morning, Humalog 12 units with breakfast, 5 units with lunch, and 12 units with supper for management of hyperglycemia. The patient reports occasional, mild hypoglycemic events with intact symptoms of hypoglycemia awareness. Most episodes occur inthe morning before breakfast. The patient denied severe low blood sugar events requiring third democrat intervention. Her sister reported that morning blood sugars have been running mostly between 80 and 200 mg/dL with blood sugars checked at other times of the day in the range of 140 to 280 mg/ dL. Hemoglobin A1c obtained in December 2019 was 9.2%. Review of Systems Constitutional: Negative for activity change, appetite change, and unexpected weight change. HENT: Negative for congestion and sinus pressure. Eyes: Negative for pain and visual disturbance. Respiratory: Negative for cough and shortness of breath. Cardiovascular: Negative for chest pain and palpitations. Gastrointestinal: Negative for diarrhea, constipation and abdominal distention. Endocrine: Negative for polydipsia, polyphagia and polyuria. Past Medical History Positives Diagnosis Date ??? Atrial fibrillation and flutter (HCC) ??? CHF, chronic (HCC) ??? Diabetes mellitus (HCC) ??? Hepatitis C ??? Hypertension ??? Pacemaker Past Surgical History: Procedure Laterality Date ??? APPENDECTOMY ??? APPENDECTOMY ??? HC DEFIB CARD RESYNCHRONIZATION 1/DF4 IS4 EA/1 ??? TOOTH EXTRACTION All of her teeth ??? WISDOM TOOTH EXTRACTION Current Outpatient Medications on File Prior to Visit Medication Sig Dispense Refill ??? ASPIR-LOW 81 MG Tablet Delayed Response ??? Blood Glucose Monitoring Suppl Device Test blood glucose 4 times daily. E11.9, insulin dependent 1 Each 0 ??? carvedilol (COREG) 25 MG Tablet 25 mg 2 times daily. ??? dilTIAZem (CARDIZEM) 30 MG Tablet TK 1 T PO TID 0 ??? diphenhydrAMINE (BENADRYL) 25 MG Tablet Take 25 mg by mouth every 6 hours as needed for Itchingor Sleep. ??? ergocalciferol (VITAMIN D) 75756 UNIT Capsule Take 1 Cap by mouth once a week. 4 Cap 2 ??? escitalopram (LEXAPRO) 10 MG Tablet TAKE 1 TABLET BY MOUTH DAILY. 90 Tab 3 ??? fluticasone (FLONASE) 50 MCG/ACT Suspension 2 Sprays by Nasal route daily. Use in each nostril as directed. 3 Bottle 3 ??? furosemide (LASIX) 40 MG Tablet TK 1 T PO BID 2 ??? Glucose Blood Strip Test blood glucose 4x daily. E11.9, insulin dependent 400 Strip 3 ??? insulin glargine (Lantus) 100 UNIT/ML Solution 12 Units by Subcutaneous route every morning. 10mL 2 ??? insulin lispro (HumaLOG) 100 UNIT/ML Solution INJECT 12 UNITS AT BREKFAST, 6 UNITS AT LUNCH AND12 UNITS AT DINNER --- ISF OF 1:25 UP TO 40 UNITS PER DAY 20 mL 2 ??? Insulin Pen Needle (PEN [...] (SYNTHROID) 50 MCG Tablet TAKE ONE TABLET DAILY IN THE MORNING ON AN EMPTY STOMACH 90 Tab 3 ??? lisinopril (PRINIVIL, ZESTRIL) 5 MG Tablet TAKE 1 TABLET BY MOUTH DAILY. 90 Tab 2 ??? nortriptyline (PAMELOR) 10 MG Capsule TAKE 1 CAPSULE DAILY 90 Cap 3 ??? omeprazole (PRILOSEC) 20 MG CAPSULE DELAYED RELEASE Take 1 Cap by mouth daily. 90 Cap 3 ??? oxybutynin (DITROPAN) 5 MG Tablet Take 1 Tab by mouth 2 times daily. 180 Tab 3 ??? potassium chloride CR (KLORCON) 10 MEQ Tablet Controlled Release ??? potassium chloride SA (KLORCON M) 20 MEQ Tablet Controlled Release ??? rivaroxaban (XARELTO) 20 MG Tablet Take 20 mg by mouth daily (with dinner). Take with food. No current facility-administered medications on file prior to visit. Objective: Physical Exam Unable to obtain DIAGNOSTIC DATA: Lab Results Component Value Date HGBA1C 9.2 (A) 12/14/2019 HGBA1C 7.8 (A) 01/15/2019 HGBA1C 6.7 (A) 10/17/2018 Lab Results Component Value Date HEMATOCRIT 46.6 06/09/2020 Lab Results Component Value Date CREATININE 0.95 06/09/2020 GFRNA 60 06/09/2020 CALCIUM 9.6 06/09/2020 SGPTALT 16 06/09/2020 Lab Results Component Value Date SODIUM 139 06/09/2020 POTASSIUM 4.2 06/09/2020 CHLORIDE 99 (L) 06/09/2020 CO2VEN 27 06/09/2020 MAGNESIUM 2.2 03/29/2020 Lab Results Component Value Date CHOLESTEROL 179 12/14/2019 TRIGLYCRIDES 221 (H) 12/14/2019 HDLCHOLESTE 44.8 12/14/2019 LDL 90 12/14/2019 Lab Results Component Value Date MACRRAND <=13 12/14/2019 Lab Results Component Value Date TSH 3.900 06/09/2020 Assessment and Plan Loretta Penn is a middle-aged woman with type 2 diabetes mellitus whose glycemic control was suboptimal based on review of her capillary blood glucose record. Low or low-normal blood glucose in the morning before breakfast suggests that there is room to reduce Lantus in the morning. High prandial blood glucose in spite of correctional factor insulin indicates that there is room to increase Humalog before each meal for management of hyperglycemia. Treatment consideration and lifestyle modification were discussed with her and her sister at some length. She will take Lantus 12 units in the morning and Humalog 14-7-14 units before each meal for management of hyperglycemia. The patient will return for office reevaluation in 3 months. PLAN: 1. Take Lantus 12 units in the morning 2. Take Humalog 14-7-14 units before each [...] assessed via telephone for a duration of 13 minutes, regarding hyperglycemia and hypoglycemic precaution. The patient verbally consented for this service to be performed and billed. Ok Jorge MD 08/11/2020 WEB APPLICATION DEVELOPER documented in this encounter Plan of Treatment Upcoming Encounters Date Type Department Care Team (Late st Contact Info) Description 10/08/2024 2:15 PM NET WEB APPLICATION DEVELOPER Office Visit [facility] #2 [place] [address] Orlin Urbina, JAILKEEPER, TURKEY EGG GATHERER #2 [place] [address] 10/18/2024 2:15 PM NET WEB APPLICATION DEVELOPER [facility]ointment [facility] 1 [place] [address] Oswaldo Serrano MD #[address] [address] Discharge Disposition: Discharged to home or Selfcare 11/29/2024 2:30 PM NET WEB APPLICATION DEVELOPER Office Visit [facility] - Family Medicine [facility] #2 [place] [address] Oswaldo Serrano MD #[address] [address] 11/30/2024 3:00 PM NET WEB APPLICATION DEVELOPER Office Visit [facility] - Endocrinology [facility] #2 [place] [address] Ok Jorge MD #[address] [address] documented as of this encounter Visit Diagnoses Diagnosis Type 2 diabetes mellitus with diabetic polyneuropathy, without long-term current use of insulin (<HCC>)- Primary Class 3 severe obesity due to excess calories with serious comorbidity and body mass index (BMI) of 40.0 to 44.9 in adult (HCC) documented in this encounter Additional Health Concerns Assessment Noted Time PHQ-9 Depression Total Score: 2 07/18/20 20 4:26 PM CDT documented as of this encounter Care Teams Personnel And Payroll Technician Relationship Specialty Start Date End Date Oswaldo Serrano MD #[address] [address] PCP - General Family Medicine 05/19/17 Angel Crowe DPM #[address] [address] Consulting Physician Podiatry 06/16/17 Mora Fritz Behavioral Health Navigator 06/15/18 documented as of this encounter
--- OUTSIDE RECORDS SUMMARY | 2024-10-07 00:29 | XMS_ITS | Encounter Summary ---
Author Organization [facility] Address [address] [place] [address] Phone Care Team Providers Care Transferrer Name Role Phone Oswaldo Serrano MD Primary Care Provider Angel Crowe DPM Unavailable Mora Fritz Unavailable Unavailable Reason for Visit * Reason Comments Medication Refill Encounter Details Date Type Department Care Team (Late st Contact Info) Description 10/01/2020 Refill [facility] #2 [place] [address] Oswaldo Serrano MD #[address] [address] Medication Refill Social History Tobacco Use Types [...] COVID-19? No / Unsure 09/11/2020 1:18 PM CNC MAINTENANCE MECHANIC documented as of this encounter Miscellaneous Notes * Telephone Encounter - Krystal Ramsay RN - 10/06/2020 1:46 PM CST Requested Prescriptions Signed Prescriptions Disp Refills ??? oxybutynin (DITROPAN) 5 MG Tablet 90 Tab 3 Sig: TAKE ONE TABLET BY MOUTH DAILY Authorizing Provider: CARSON SÁNCHEZ MAINTENANCE MECHANIC * Telephone Encounter - Carson Sánchez MD - 10/06/2020 8:49 AM CNC MAINTENANCE MECHANIC Schedule follow up MAINTENANCE MECHANIC documented in this encounter Plan of Treatment Upcoming Encounters Date Type Department Care Team (Late st Contact Info) Description 10/08/2024 2:15 PM CNC MAINTENANCE MECHANIC Office Visit [facility] #2 [place] [address] Orlin Urbina, SPORTS UMPIRE, DIALS INSPECTOR #2 [place] [address] 10/18/2024 2:15 PM CNC MAINTENANCE MECHANIC Appointment [facility] Mammography 1 [place] [address] Oswaldo Serrano MD #[address] [address] Discharge Disposition: Discharged to home or Selfcare 11/29/2024 2:30 PM CNC MAINTENANCE MECHANIC Office Visit [facility] Medical [facility] - Family Medicine [facility] #2 [place] [address] Oswaldo Serrano MD #[address] [address] 11/30/2024 3:00 PM CNC MAINTENANCE MECHANIC Office Visit [facility] Endocrinology [facility] #2 [place] [address] Ok Jorge MD #[address] [address] documented as of this encounter Visit Diagnoses Diagnosis OAB (overactive bladder) Hypertonicity of bladder documented in this encounter Additional Health Concerns Assessment Noted Time PHQ-9 Depression Total Score: 2 07/18/20 20 4:26 PM CDT documented as of this encounter Care Teams Transferrer Relationship Specialty Start Date End Date Oswaldo Serrano MD #[address] [address] PCP - General Family Medicine 05/19/17 Angel Crowe DPM #[address] [address] Consulting Physician Podiatry 06/16/17 Mora Fritz Behavioral Health Navigator 06/15/18 documented as of this encounter
--- OUTSIDE RECORDS SUMMARY | 2024-10-07 00:29 | XMS_ITS | Encounter Summary ---
Author Organization [facility] Address [address] [place] [address] Phone Care Team Providers Care Refinery Technician Name Role Phone Oswaldo Serrano MD Primary Care Provider Angel Crowe DPM Unavailable Mora Fritz Unavailable Unavailable Encounter Details Date Type Department Care Team (Late st Contact Info) Description 07/18/2020 Telephone [facility] [address] [place], [place] [phone] Oswaldo Serrano MD #[address] [address] Social History Tobacco Use Types Packs/Day Years [...] Coronavirus / COVID-19? No / Unsure 11/21/2020 10:43 AM SOLID WASTE LANDFILL TECHNICIAN documented as of this encounter Miscellaneous Notes * Telephone Encounter - Tina Banuelos RN - 07/18/2020 11:36 AM CDT Images from the original note were not included. Patient's sister Dilia calling stating that she is wondering if patient needs to be tested for COVID as patient has been tired, has a blood vessel pop in her left eye, and has some dizziness. Asked patient and sister further about these issues. States that she busted a blood vessel in her left side and patient states that her eye is hurting. Patient states that she did not poke her eye, states that she can see out of her eye. States does not have anymore diarrhea, states has been been tired and dizzy. States that she is dizzy when standing up. Has not been drinking a lot of fluids. Sister states that she has switched pharmacy and they are giving her different generic medication so sister is wondering if this is something that could be causing the dizziness. Advised that message would be sent to provider and that we would call them back if provider thinks appointment needs to be cancelled or changed. Patient has appointment today with Connor Moses APN 07/18 at 4:00pm. Routing to provider to advise. Travel Screening Question Response In the last month, have you been in contact with someone who was confirmed or suspected to have Coronavirus / COVID-19? No / Unsure Have you had a COVID-19 viral test in the last 14 days? No Do you have any of the following new or worsening symptoms? Muscle pain;Weakness;Joint pain;Red eye;Abdominal pain Have you traveled internationally in the last month? No Travel History Travel since 06/18/20 No documented travel since 06/18/20 COVID-19 Testing Priority for Loretta Penn: 4 Nurse to triage Patient is a resident of a congregate living facility? No Patient is a healthcare worker? No documented in this encounter Plan of Treatment Upcoming Encounters Date Type Department Care Team (Late st Contact Info) Description 10/08/2024 2:15 PM SOLID WASTE LANDFILL TECHNICIAN Office Visit [facility] #2 [place] [address] Orlin Urbina, AUTO HEADLIGHT MECHANIC, RESEARCH CHEMIST #2 [place] [address] 10/18/2024 2:15 PM SOLID WASTE LANDFILL TECHNICIAN Appointment [facility] Mammography 1 [place] [address] Oswaldo Serrano MD #[address] [address] Discharge Disposition: Discharged to home or Selfcare 11/29/2024 2:30 PM SOLID WASTE LANDFILL TECHNICIAN Office Visit [facility] #2 [place] [address] Oswaldo Serrano MD #[address] [address] 11/30/2024 3:00 PM SOLID WASTE LANDFILL TECHNICIAN Office Visit [facility] - Endocrinology - [place] #2 [place] [address] kO Jorge MD #[address] [address] documented as of this encounter Visit Diagnoses Not on filedocumented in this encounter Additional Health Concerns Infection Onset Date Last Indicated Resolved Time COVID - 19 10/09/2020 10/09/2020 10/11/2020 5:17 AM SOLID WASTE LANDFILL TECHNICIAN COVID - 19 11/12/2020 11/12/2020 11/16/2020 9:49 AM SOLID WASTE LANDFILL TECHNICIAN Assessment Noted Time PHQ-9 Depression Total Score: 2 07/18/20 20 4:26 PM CDT documented as of this encounter Care Teams Refinery Technician Relationship Specialty Start Date End Date Oswaldo Serrano MD #[address] [address] PCP - General Family Medicine 05/19/17 Angel Crowe DPM #[address] [address] Consulting Physician Podiatry 06/16/17 Mora Fritz Behavioral Health Navigator 06/15/18 documented as of this encounter
--- OUTSIDE RECORDS SUMMARY | 2024-10-07 00:29 | XMS_ITS | Encounter Summary ---
Author Organization [employer] Care Team Providers Care Grey Goods Marker Name Role Phone Oswaldo Serrano MD Primary Care Provider [phone] Angel Crowe DPM Unavailable [phone] Mora Fritz Unavailable Unavailable Encounter Details Date Type Department Care Team (Latest Contact Info) Description 07/18/2020 Travel Social History Tobacco Use Types Packs/Day [...] st Contact Info) Description 10/08/2024 2:15 PM QUALITY INTERN Office Visit [facility] UR[facility] #2 [place] [address] Orlin Urbina APRN, ALL SOURCE INTELLIGENCE ANALYST #2 [place] [address] 10/18/2024 2:15 PM QUALITY INTERN [facility] 1 [place] [address] Oswaldo Serrano MD #2 [facility] [address] [place] [address] Discharge Disposition: Discharged to home or Selfcare 11/29/2024 2:30 PM QUALITY INTERN Office Visit [facility] Family Medicine [facility] #2 [place] [address] Oswaldo Serrano MD #2 [facility] [address] [place] [address] 11/30/2024 3:00 PM QUALITY INTERN Office Visit [facility] - Endocrinology - [place] #2 [place] [address] Ok Jorge MD #2 [facility] [address] [place] [address] documented as of this encounter Visit Diagnoses Not on filedocumented in this encounter Additional Health Concerns Assessment Noted Time PHQ-9 Depression Total Score: 2 07/18/20 20 4:26 PM CDT documented as of this encounter Care Teams Grey Goods Marker Relationship Specialty Start Date End Date Oswaldo Serrano MD #[address] [address] PCP - General Family Medicine 05/19/17 Angel Crowe DPM #[address] [address] Consulting Physician Podiatry 06/16/17 Mora Fritz Behavioral Health Navigator 06/15/18 documented as of this encounter
--- OUTSIDE RECORDS SUMMARY | 2024-10-07 00:29 | XMS_ITS | Encounter Summary ---
Author Organization [facility] Address [address] [place] [address] Phone Care Team Providers Care Brand Advisor Name Role Phone Oswaldo Serrano MD Primary Care Provider [phone] Angel Crowe DPM Unavailable Mora Fritz Unavailable Unavailable Reason for Visit * Reason Onset Date Comments Results 10/06/2020 Encounter Details Date Type Department Care Team (Late st Contact Info) Description 10/06/2020 Telephone [facility] #2 [place] [address] Oswaldo Serrano MD #[address] [address] Results Social History Tobacco Use Types Packs/Day [...] COVID-19? No / Unsure 09/11/2020 1:18 PM STAFFING PROGRAM MANAGER documented as of this encounter Miscellaneous Notes * Telephone Encounter - Zainab Roblero RN - 10/06/2020 8:55 AM CST Sent to my chart. FING PROGRAM MANAGER * Telephone Encounter - Zainab Roblero RN - 10/06/2020 8:54 AM CST ----- Message from Oswaldo Serrano MD sent at 10/04/2020 6:07 PM STAFFING PROGRAM MANAGER ----- Loretta, your liver enzymes are better, but still high. Cholesterol is now normal - good job! Recheck labs in 3 months (nonfasting). Thanks! FING PROGRAM MANAGER documented in this encounter Plan of Treatment Upcoming Encounters Date Type Department Care Team (Late st Contact Info) Description 10/08/2024 2:15 PM STAFFING PROGRAM MANAGER Office Visit [facility] #2 [place] [address] Orlin Urbina APRN, DIRECTOR OF CASEWORK DEPARTMENT #2 [place] [address] 10/18/2024 2:15 PM STAFFING PROGRAM MANAGER Appointment [facility] Mammography 1 [place] [address] Oswaldo Serrano MD #[address] [address] Discharge Disposition: Discharged to home or Selfcare 11/29/2024 2:30 PM STAFFING PROGRAM MANAGER Office Visit [facility] Family Medicine [facility] #2 [place] [address] Oswaldo Serrano MD #[address] [place] [address] 11/30/2024 3:00 PM STAFFING PROGRAM MANAGER Office Visit [facility] Endocrinology - [place] #2 [facility] [place] [address] Ok Jorge MD #[address] [address] documented as of this encounter Visit Diagnoses Not on filedocumented in this encounter Additional Health Concerns Assessment Noted Time PHQ-9 Depression Total Score: 2 07/18/20 20 4:26 PM CDT documented as of this encounter Care Teams Brand Advisor Relationship Specialty Start Date End Date Oswaldo Serrano MD #[address] [address] PCP - General Family Medicine 05/19/17 Angel Crowe DPM #[address] [address] Consulting Physician Podiatry 06/16/17 Mora Fritz Behavioral Health Navigator 06/15/18 documented as of this encounter
--- OUTSIDE RECORDS SUMMARY | 2024-10-07 00:30 | XMS_ITS | Encounter Summary ---
Author Organization [facility] Address [address] [facility] [place] [address] Phone Care Team Providers Care Sales And Merchandising Associate Name Role Phone Oswaldo Serrano MD Primary Care Provider Angel Crowe DPM Unavailable [phone] Mora Fritz Unavailable Unavailable Reason for Visit * Reason Onset Date Comments Erroneous Encounter - Disregard 06/02/2020 Encounter Details Date Type Department Care Team (Late st Contact Info) Description 06/02/2020 Telephone [facility] [address] [place] [address] Oswaldo Serrano MD #[address] [address] Erroneous Encounter - Disregard Social History Tobacco Use Types Packs/Day Years Used Date Smoking Tobacco: Never Smokeless Tobacco: Never Alcohol Use Standard Drinks/Week Comments No 0 (1 standard drink = 0.6 oz pur e alcohol) PHQ-2 Answer Date Recorded PHQ-2 Score 0 04/07/2020 Sexually Active Control Partners Comments Never Male [...] have Coronavirus / COVID-19? No / Unsure 05/28/2020 3:53 PM CDT documented as of this encounter Miscellaneous Notes * Telephone Encounter - Tina Banuelos RN - 06/02/2020 3:47 PM CDT error documented in this encounter Plan of Treatment Upcoming Encounters Date Type Department Care Team (Late st Contact Info) Description 10/08/2024 2:15 PM DIRECTOR COUNCIL ON AGING Office Visit [facility] #2 [place] [address] Orlin Urbina, CANVAS CUTTER, FLOOR PLAN ADJUSTER #2 [place] [address] 10/18/2024 2:15 PM DIRECTOR COUNCIL ON AGING [facility] 1 [place] [address] Oswaldo Serrano MD #[address] [address] Discharge Disposition: Discharged to home or Selfcare 11/29/2024 2:30 PM DIRECTOR COUNCIL ON AGING Office Visit [facility] Family Medicine [facility] #2 [place] [address] Oswaldo Serrano MD #[address] [address] 11/30/2024 3:00 PM DIRECTOR COUNCIL ON AGING Office Visit [facility] - Endocrinology - [place] #2 [place] [address] Ok Jorge MD #[address] [address] documented as of this encounter Visit Diagnoses Not on filedocumented in this encounter Additional Health Concerns Assessment Noted Time PHQ-9 Depression Total Score: 0 04/07/20 20 3:34 PM CDT documented as of this encounter Care Teams Sales And Merchandising Associate Relationship Specialty Start Date End Date Oswaldo Serrano MD #[address] [address] PCP - General Family Medicine 05/19/17 Angel Crowe DPM #[address] [address] Consulting Physician Podiatry 06/16/17 Mora Fritz Behavioral Health Navigator 06/15/18 documented as of this encounter
--- OUTSIDE RECORDS SUMMARY | 2024-10-07 00:30 | XMS_ITS | Encounter Summary ---
Author Organization [facility] Address [address] [place] [address] Phone Care Team Providers Care Vp Hr Diversity Name Role Phone Oswaldo Serrano MD Primary Care Provider [phone] Angel Crowe DPM Unavailable Mora Fritz Unavailable Unavailable Reason for Visit * Reason Onset Date Comments Results 04/08/2020 Encounter Details Date Type Department Care Team (Late st Contact Info) Description 04/08/2020 Telephone [facility] #2 [place] [address] Connor Yuan, MANAGER INTERFACE, [employer] #[address] [address] Results Social History Tobacco Use Types Packs/Day [...] have Coronavirus / COVID-19? No / Unsure 04/07/2020 3:09 PM CDT documented as of this encounter Miscellaneous Notes * Telephone Encounter - Mervat Saldana RN - 04/09/2020 3:36 PM CDT Peg was notified and verbalized understanding. * Telephone Encounter - Siobhan Ledezma RN - 04/09/2020 8:46 AM CDT Left message for peg to call back. * Telephone Encounter - Connor Yuan APN, CNP - 04/08/2020 7:15 AM CDT Please call patient SANA and let her know that her vitamin D was low. Will send over 3 months worth of prescription therapy and then recheck. Orders entered. documented in this encounter Plan of Treatment Upcoming Encounters Date Type Department Care Team (Late st Contact Info) Description 10/08/2024 2:15 PM CLINICAL SERVICES MANAGER Office Visit [facility] PHYS[facility]IAN GROUP UROLOGY #2 [place] [phone] Orlin Urbina APRN, [employer] #2 [place] [address] 10/18/2024 2:15 PM CLINICAL SERVICES MANAGER Appointment [facility] Mammography 1 [place] [address] Oswaldo Serrano MD #2 [facility] [address] [place] [address] Discharge Disposition: Discharged to home or Selfcare 11/29/2024 2:30 PM CLINICAL SERVICES MANAGER Office Visit [facility] - Family Medicine - [place] #2 [place] [address] Oswaldo Serrano MD #2 [facility] [address] [place] [address] 11/30/2024 3:00 PM CLINICAL SERVICES MANAGER Office Visit [facility] Medical [facility] - Endocrinology - [place] #2 [place] [address] Ok Jorge MD #[address] [address] documented as of this encounter Results * (ABNORMAL) VITAMIN D, 25 HYDROXY TOTAL (09/11/2020 1:26 PM CLINICAL SERVICES MANAGER) Pathologist [facility] VITAMIN D, 25 HYDROX 25(L) >=30 ng/mL 09/11/2020 3:28 PM CLINICAL SERVICES MANAGER [facility] Blood Venipuncture / Unknown 09/11/2020 1:26 PM CLINICAL SERVICES MANAGER 09/11/2020 2:33 PM CLINICAL SERVICES MANAGER Narrative [facility] - 09/11/2020 3:28 PM CLINICAL SERVICES MANAGER Published reference ranges for Vitamin D vary depending on time and place and method of testing, and on patient's age, sex, ethnicity and levels of other measured analytes such as parathormone, calcium and phosphorus. ??The result should be evaluated in conjunction with clinical findings and suspicions. [place] [employer] and Endocrine Clinical Practice Guidelines: Status Vitamin D levels (ng/mL) Deficient <=20 At risk of inadequacy 21-29 Sufficient 30-100 Centers of Disease Control and Prevention Guidelines: Status Vitamin D levels (ng/mL) Deficient <13 At risk of inadequacy 13-19 Sufficient 20-50 Possibly harmful >50 References: [place] [employer], 2010 Dietary reference intakes for calcium and vitamin D. Guidry [place]: ??The National Academies Press. Eve M, oFrrest N, Maksim BIRCH, et al., Evaluation, treatment, and prevention of Vitamin D deficiency: an Endocrinology Clinical Practice Guideline. JCEM 2011 96: 7 8439-8558. Faiza A, Manjinder C, Tyson Rockwell, et al., Vitamin D Status: ??[place], 2000- 1005, [facility] data brief, no. 59, MD Claudia: ??National Center for Health Statistics. 2010. Connor Yuan APRN, [employer] CHEMISTRY ORDERA BLES Final Result [facility] #1 [place] [address] documented in this encounter Visit Diagnoses Diagnosis Vitamin D deficiency- Primary Unspecified vitamin D deficiency documented in this encounter Additional Health Concerns Assessment Noted Time PHQ-9 Depression Total Score: 0 04/07/20 20 3:34 PM CDT documented as of this encounter Care Teams Vp Hr Diversity Relationship Specialty Start Date End Date Oswaldo Serrano MD #[address] [address] PCP - General Family Medicine 05/19/17 Angel Crowe DPM #[address] [address] Consulting Physician Podiatry 06/16/17 Mora Fritz Behavioral Health Navigator 06/15/18 documented as of this encounter
--- OUTSIDE RECORDS SUMMARY | 2024-10-07 00:30 | XMS_ITS | Encounter Summary ---
Author Organization [facility] Address [address] [facility] [place] [address] Phone Care Team Providers Care Peanut Sorter Name Role Phone Oswaldo Serrano MD Primary Care Provider [phone] Angel Crowe DPM Unavailable [phone] Mora Fritz Unavailable Unavailable Reason for Visit * Reason Onset Date Comments Diarrhea 06/27/2020 Encounter Details Date Type Department Care Team ([facility] Contact Info) Description 06/27/2020 [facility] [address] [place] [address] Oswaldo Serrano MD #[address] [address] Diarrhea Social History Tobacco Use Types Packs/Day Years Used Date Smoking Tobacco: Never Smokeless Tobacco: Never Alcohol Use Standard Drinks/Week Comments No 0 (1 standard drink = 0.6 oz pur e alcohol) PHQ-2 Answer Date Recorded PHQ-2 Score 5 06/09/2020 Sexually Active Control Partners Comments Never Male [...] have Coronavirus / COVID-19? No / Unsure 06/27/2020 8:51 AM CDT documented as of this encounter Miscellaneous Notes * Telephone Encounter - Kacie Wolff RN - 07/07/2020 4:07 PM CDT Pt seen in Non [facility] 06/27/20 Followed up 07/03/20. Closing encounter. * Telephone Encounter - Oswaldo Serrano MD - 06/27/2020 9:07 AM CDT Yes, tell her to go to the ER for evaluation. Looks like she is dehydrated and may need IV fluids. Thanks! * Telephone Encounter - Kacie Wolff RN - 06/27/2020 8:50 AM CDT siser calling. Has had diarrhea for over a week Feeling very tired Bones are hurting Lips are really dry Have been giving her Pedialyte Pt tells sister that she thinks she voided voided this a.m Having liquid stools dark brown in color Had 5 stools yesterday Advised ER to be evaluated for dehydration and then we can get her into office once symptoms have cleared. Reason for Disposition ? ? MODERATE diarrhea (e.g., 4-6 times / day more than normal) and age > 70 years Protocols used: [id number] documented in this encounter Plan of Treatment Upcoming Encounters Date Type Department Care Team (Late st Contact Info) Description 10/08/2024 2:15 PM FAN ENGINE ENGINEER Office Visit [facility]YSICIAN GROUP UROLOGY #2 [place] [address] Orlin Urbina APRN, SENIOR SALES CONSULTANT #[address] [place] [address] 10/18/2024 2:15 PM FAN ENGINE ENGINEER Appointment [facility] Mammography 1 [place] [address] Oswaldo Serrano MD #[address] [address] Discharge Disposition: Discharged to home or Selfcare 11/29/2024 2:30 PM FAN ENGINE ENGINEER Office Visit [facility] - [place] #2 [place] [address] Oswaldo Serrano MD #[address] [address] 11/30/2024 3:00 PM FAN ENGINE ENGINEER Office Visit [facility] - [place] #2 [place] [address] Ok Jorge MD #[address] [address] documented as of this encounter Visit Diagnoses Not on filedocumented in this encounter Additional Health Concerns Assessment Noted Time PHQ-9 Depression Total Score: 5 06/09/20 20 4:22 PM CDT documented as of this encounter Care Teams Peanut Sorter Relationship Specialty Start Date End Date Oswaldo Serrano MD #[address] [address] PCP - General Family Medicine 05/19/17 Angel Crowe DPM #[address] [address] Consulting Physician Podiatry 06/16/17 Mora Fritz Behavioral Health Navigator 06/15/18 documented as of this encounter
--- OUTSIDE RECORDS SUMMARY | 2024-10-07 00:30 | XMS_ITS | Encounter Summary ---
Author Organization [facility] Address [address] [place] [address] Phone Care Team Providers Care Marketing Traffic Manager Name Role Phone Oswaldo Serrano MD Primary Care Provider Angel Crowe DPM Unavailable Mora Fritz Unavailable Unavailable Encounter Details Date Type Department Care Team (Late st Contact Info) Description 2019 Refill [facility] - [place] #2 [place] [address] Ok Jorge MD #[address] [address] Social History Tobacco Use Types Packs/Day Years Used Date Smoking Tobacco: Never Smokeless Tobacco: Never Alcohol Use Standard Drinks/Week Comments No 0 (1 standard drink = 0.6 oz pur e alcohol) PHQ-2 Answer Date Recorded PHQ-2 Score 1 12/14/2019 Sexually Active Control Partners Comments Never Male Comments No Sex and Gender Information Value Date Recorded Sex Assigned at Not on file Legal Sex Female 3:04 PM CDT Gender Identity Not on file Sexual Orientation Not on file documented as of this encounter Miscellaneous Notes * Telephone Encounter - Ynes Zuniga, RN - 2019 1:01 PM CDT Refill request received. Order pended. Requested Prescriptions Pending Prescriptions Disp Refills ??? Blood Glucose Monitoring Suppl Device 1 Each 0 Sig: Test blood glucose 4 times daily. E11.9, insulin dependent ??? Glucose Blood Strip 400 Strip 3 Sig: Test blood glucose 4x daily. E11.9, insulin dependent ??? Lancets Misc 400 Lancet 3 Sig: Test four times daily. E11.9, insulin dependent Next appt: 03/18/2020 documented in this encounter Plan of Treatment Upcoming Encounters Date Type Department Care Team (Late st Contact Info) Description 10/08/2024 2:15 PM TAR ROOFER Office Visit [facility] PHYSICIAN GROUP UROLOGY #2 [place] [address] Orlin Urbina APRN, [employer] AIR[employer] #2 [place] [address] 10/18/2024 2:15 PM TAR ROOFER Appointment [facility] Mammography 1 [place] [address] Oswaldo Serrano MD #[address] [address] Discharge Disposition: Discharged to home or Selfcare 11/29/2024 2:30 PM TAR ROOFER Office Visit [facility] #2 [place] [address] Oswaldo Serrano MD #[address] [address] 11/30/2024 3:00 PM TAR ROOFER [facility] - [place] #2 [place] [address] Ok Jorge MD [facility] [address] [address] documented as of this encounter Visit Diagnoses Not on filedocumented in this encounter Additional Health Concerns Assessment Noted Time PHQ-9 Depression Total Score: 1 12/14/19 20 2:55 PM TAR ROOFER documented as of this encounter Care Teams Marketing Traffic Manager Relationship Specialty Start Date End Date [facility]aldo Serrano MD [facility] [facility] [address] PCP - General Family Medicine 05/19/17 Angel Crowe DPM #[address] [address] Consulting Physician Podiatry 06/16/17 Mora Fritz Behavioral Health Navigator 06/15/18 documented as of this encounter
--- OUTSIDE RECORDS SUMMARY | 2024-10-07 00:30 | XMS_ITS | Encounter Summary ---
Author Organization [facility] Care Team Providers Care Box Turner Name Role Phone Oswaldo Serrano MD Primary Care Provider [phone] Anegl Crowe DPM Unavailable [phone] Mora Fritz Unavailable Unavailable Encounter Details Date Type Department Care Team (Latest Contact Info) Description 07/11/2020 Travel Social History Tobacco Use Types Packs/Day Years Used Date Smoking Tobacco: Never Smokeless Tobacco: Never Alcohol Use Standard Drinks/Week Comments No 0 (1 standard drink = 0.6 oz pur e alcohol) PHQ-2 Answer Date Recorded PHQ-2 Score 5 06/09/2020 Education Answer Date Recorded What is the [...] have Coronavirus / COVID-19? No / Unsure 07/11/2020 1:21 PM CDT documented as of this encounter Plan of Treatment Upcoming Encounters Date Type Department Care Team (Late st Contact Info) Description 10/08/2024 2:15 PM EGG AND SPICE MIXER Office Visit [facility] PHYSICIAN GROUP UROLOGY #2 [place] [address] Orlin Urbina APRN, HUMID SYSTEM OPERATOR #2 [place] [address] 10/18/2024 2:15 PM EGG AND SPICE MIXER [facility] 1 [place] [address] Oswaldo Serrano MD #2 [facility] [address] [place] [address] Discharge Disposition: Discharged to home or Selfcare 11/29/2024 2:30 PM EGG AND SPICE MIXER Office Visit [facility] - [place] #2 [place] [address] Oswaldo Serrano MD #2 [facility] [address] [place] [address] 11/30/2024 3:00 PM EGG AND SPICE MIXER Office Visit [facility] - [place] #2 [place] [address] Ok Jorge MD #[address] [phone] documented as of this encounter Visit Diagnoses Not on filedocumented in this encounter Additional Health Concerns Assessment Noted Time PHQ-9 Depression Total Score: 5 06/09/20 20 4:22 PM CDT documented as of this encounter Care Teams Box Turner Relationship Specialty Start Date End Date Oswaldo Serrano MD #[address] [address] PCP - General Family Medicine 05/19/17 Angel Crowe DPM #[address] [address] Consulting Physician Podiatry 06/16/17 Mora Fritz Behavioral Health Navigator 06/15/18 documented as of this encounter
--- OUTSIDE RECORDS SUMMARY | 2024-10-07 00:30 | XMS_ITS | Encounter Summary ---
Author Organization [facility] Address [address] [place] [address] Phone Care Team Providers Care Level Vial Inspector And Tester Name Role Phone Oswaldo Serrano MD Primary Care Provider Angel Crowe DPM Unavailable [phone] Mora Fritz Unavailable Unavailable Reason for Visit * Reason Onset Date Comments ED Follow-up 07/03/2020 Encounter Details Date Type Department Care Team (Late st Contact Info) Description 07/03/2020 Telephone [facility] #2 [place] [address] Oswaldo Serrano MD #[address] [address] ED Follow-up Social History Tobacco Use Types [...] have Coronavirus / COVID-19? No / Unsure 07/09/2020 3:41 PM CDT documented as of this encounter Miscellaneous Notes * Telephone Encounter - Kacie Adam RN - 07/10/2020 1:07 PM CDT Patients sister Dilia is aware and verbalizes understanding. Gave activation code for [employer], will set it up this evening. Gave instructions on how to get on for appt as well. Appt for video visit already scheduled on 07/11 at 1:30. * Telephone Encounter - Connor Yuan APN, CNP - 07/09/2020 4:07 PM CDT Telephone or video is fine. * Telephone Encounter - Sahra Washington RN - 07/09/2020 3:38 PM CDT Images from the original note were not included. Patient's sister/PRD, Dilia, calling to state she had taken patient to ED to evaluate diarrhea since office would not let her come in without having COVID test first. States ED did NOT test patient for COVID and said everything came back fine. Dilia states at this time diarrhea has resolved but patient still complaining of a stomach ache and dizziness. Denies symptoms being any worse than they were when in ED. Dilia asking if can schedule for a telephone visit. RN advised we can do a video visit if patient has access to a computer or smart phone and [employer] account. Dilia states her niece would be able to help her set one up. RN gave Mychart help line phone number as [phone] to call toset up account as RN is not able to generate a code. Dilia asking for video appointment for 07/11/20. Patient scheduled on 07/11/20 at 1:30 with Connor Yuan. Routing to provider as a FYI and to make sure ok with visit being done over video. Travel Screening Question Response In the last month, have you been in contact with someone who was confirmed or suspected to have Coronavirus / COVID-19? No / Unsure Have you had a COVID-19 viral test in the last 14 days? No Do you have any of the following new or worsening symptoms? Joint pain Have you traveled internationally in the last month? No Travel History Travel since 06/08/20 No documented travel since 06/08/20 COVID-19 Testing Priority for Loretta Penn: 4 At this time, based on our discussion we would recommend following the CDC and [facility] department of health guidelines, which include: ?? practicing social distancing (staying 6 feet away from others) ?? washing your hands often ?? keeping yourself hydrated ?? staying home as much as possible If you would like to be tested we would recommend that you complete a web search and review the criteria for testing at the community based sites near your location. If you do develop any symptoms please call us back. SAHRA DAMIAN RN * Telephone Encounter - Teri Esquivel RN - 07/09/2020 10:54 AM CDT Left message for patient/parent/caregiver to return call * Telephone Encounter - Kacie Adam RN - 07/07/2020 3:26 PM CDT Left a message for patient to return call * Telephone Encounter - Mica Douglas RN - 07/04/2020 8:29 AM CDT Left message for patient to call the office. * Telephone Encounter - Oswaldo Serrano MD - 07/03/2020 10:59 AM CDT Schedule her to see me or Connor Yuan NP for ER follow-up. Thanks! documented in this encounter Plan of Treatment Upcoming Encounters Date Type Department Care Team (Late st Contact Info) Description 10/08/2024 2:15 PM CLIENT SUPPORT 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 Office Visit [facility] #2 [place] [address] Orlin Urbina APRN, BARREL PAINTER #2 [place] [address] 10/18/2024 2:15 PM CLIENT SUPPORT 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 [facility] 1 [place] [address] Oswaldo Serrano MD #2 [facility] [address] [place] [address] Discharge Disposition: Discharged to home or Selfcare 11/29/2024 2:30 PM CLIENT SUPPORT 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 Office Visit [facility] - [place] #[address] [place] [address] Oswaldo Serrano MD #2 [facility] [address] [place] [address] 11/30/2024 3:00 PM CLIENT SUPPORT 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 Office Visit [facility] - [place] #2 [facility] [place] [address] Ok Jorge MD #2 [facility] [address] [place] [address] documented as of this encounter Visit Diagnoses Not on filedocumented in this encounter Additional Health Concerns Assessment Noted Time PHQ-9 Depression Total Score: 5 06/09/20 20 4:22 PM CDT documented as of this encounter Care Teams Level Vial Inspector And Tester Relationship Specialty Start Date End Date Oswaldo Serrano MD #2 [facility] [address] [place] [address] PCP - General Family Medicine 05/19/17 Angel Crowe DPM #2 [facility] [address] [place] [address] Consulting Physician Podiatry 06/16/17 Mora Fritz Behavioral Health Navigator 06/15/18 documented as of this encounter
--- OUTSIDE RECORDS SUMMARY | 2024-10-07 00:30 | XMS_ITS | Encounter Summary ---
Author Organization [facility] Address [address] [place] [address] Phone Care Team Providers Care Middle School Reading Teacher Name Role Phone Oswaldo Serrano MD Primary Care Provider Angel Crowe DPM Unavailable Mora Fritz Unavailable Unavailable Encounter Details Date Type Department Care Team (Late st Contact Info) Description 03/31/2020 Telephone [facility] #2 [place] [address] Oswaldo Serrano MD #[address] [address] Social History Tobacco Use Types Packs/Day Years [...] have Coronavirus / COVID-19? No / Unsure 03/29/2020 11:16 PM CDT documented as of this encounter Miscellaneous Notes * Telephone Encounter - Coleen Anand RN - 04/04/2020 8:36 AM CDT Patient is aware and verbalizes understanding. appointment scheduled * Telephone Encounter - Coleen Anand RN - 04/02/2020 8:24 AM CDT Left message for patient to call back. * Telephone Encounter - Coleen Anand RN - 03/31/2020 1:01 PM CDT Left message for patient to call back. * Telephone Encounter - Oswaldo Serrano MD - 03/31/2020 12:22 AM CDT Schedule her to see me or Connor Yuan NP for ER follow-up. Thanks! documented in this encounter Plan of Treatment Upcoming Encounters Date Type Department Care Team (Late st Contact Info) Description 10/08/2024 2:15 PM FARM CONTRACTOR BUYER Office Visit [facility] UROLOGY #2 [place] [address] Orlin Urbina, MEDICAL WRITER, DISCHARGE DOOR OPERATOR #2 [place] [address] 10/18/2024 2:15 PM FARM CONTRACTOR BUYER [facility] 1 [place] [address] Oswaldo Serrano MD #[address] [address] Discharge Disposition: Discharged to home or Selfcare 11/29/2024 2:30 PM FARM CONTRACTOR BUYER Office Visit [facility] #2 [place] [address] Oswaldo Serrano MD #[address] [address] 11/30/2024 3:00 PM FARM CONTRACTOR BUYER Office Visit [facility] - Endocr[facility]ology [facility] #2 [place] [address] Ok Jorge MD #[address] [address] documented as of this encounter Visit Diagnoses Not on filedocumented in this encounter Additional Health Concerns Assessment Noted Time PHQ-9 Depression Total Score: 1 12/14/19 20 2:55 PM FARM CONTRACTOR BUYER documented as of this encounter Care Teams [employer] Reading Teacher Relationship Specialty Start Date End Date Oswaldo Serrano MD #[address] [address] PCP - General Family Medicine 05/19/17 Angel Crowe DPM #[address] [address] Consulting Physician Podiatry 06/16/17 Mora Fritz [place] Behavioral Health Navigator 06/15/18 documented as of this encounter
--- OUTSIDE RECORDS SUMMARY | 2024-10-07 00:30 | XMS_ITS | Encounter Summary ---
Author Organization [facility] Address [address] [place] [address] Phone Care Team Providers Care Trap Operator Name Role Phone Oswaldo Serrano MD Primary Care Provider Angel Crowe DPM Unavailable [phone] Mora Fritz Unavailable Unavailable Reason for Visit * Reason Comments Dizziness Encounter Details Date Type Department Care Team (Late st Contact Info) Description 05/29/2020 4:15 PM CDT [facility]icine [facility] #2 [place] [address] Oswaldo Serrano MD #[address] [address] Diarrhea, unspecified type (Primary Dx); Dizziness; Flu-like symptoms Social History Tobacco Use Types Packs/Day Years [...] Progress Notes * Oswaldo Serrano MD - 05/29/2020 4:15 PM CDT Patient was assessed via telephone for a duration of 11 minutes. Patient verbally consented for this service to be performed and billed. CC: Dizziness. S: Diarrhea resolved, but still feeling dizzy for a few weeks.Drinks enough water. Has ear ringing.Was possibly exposed [place] ticks [place] farm, but could not locate a tick on her arm. O: Psych: alert & oriented; needs help to talk from family members. A/P: 1. Diarrhea - resolved. 2. Dizziness - difficult to assess, but will get UA, CMP, CBC, & COVID swab. 3. F/U with me or Connor Yuan, ALLY next week; told her to go to the ER if worse. documented in this encounter Plan of Treatment Upcoming Encounters Date Type Department Care Team (Late st Contact Info) Description 10/08/2024 2:15 PM MEDICAL ILLUSTRATOR Office Visit [facility] #2 [place] [address] Orlin Urbina, PROJECT MGR, GUN NUMBERER #2 [place] [address] 10/18/2024 2:15 PM MEDICAL ILLUSTRATOR Appointment [facility] 1 [place] [address] Oswaldo Serrano MD #[address] [address] Discharge Disposition: Discharged to home or Selfcare 11/29/2024 2:30 PM MEDICAL ILLUSTRATOR Office Visit [facility] - [place] #2 [place] [address] Oswaldo Serrano MD #[address] [address] 11/30/2024 3:00 PM MEDICAL ILLUSTRATOR Office [facility] Medical [facility] - Endocrinology - [place] #2 [place] [phone] Ok Jorge MD #[address] [address] documented as of this encounter Results * (ABNORMAL) URINALYSIS REFLEX IF INDICATED BY ABNORMAL RESULTS (06/09/2020 5:13 PM CDT) [facility] SPECIFIC GRAVITY 1.020 1.003 - 1.030 06/09/2020 6:14 PM CDT [facility] URINE PH 5.0 5.0 - 9.0 06/09/2020 6:14 PM CDT [facility] WBC ESTERASE Negative Negative 06/09/2020 6:14 PM CDT [facility] NITRITE Positive(A) Negative 06/09/2020 6:14 PM CDT [facility] PROTEIN, RANDOM URINE 15 mg/dL(A) Negative 06/09/2020 6:14 PM CDT [facility] URINE GLUCOSE, QUAL Negative Negative 06/09/2020 6:14 PM CDT [facility] URINE KETONES Negative Negative 06/09/2020 6:14 PM CDT [facility] UROBILINOGEN Normal Normal mg/dL 06/09/2020 6:14 PM CDT [facility] URINE BILIRUBIN Negative Negative 0 6:14 PM CDT [facility] URINE BLOOD 25 /uL(A) Negative jolene/ul 06/09/2020 6:14 PM CDT [facility] URINALYSIS COLOR Dark Yellow 020 6:14 PM CDT [facility] URINALYSIS CLARITY Slightly Cloudy 06/09/2020 6:14 PM CDT [facility] WBC (Urine) 0-5 Negative, 0-5 /hpf 06/09/2020 6:14 PM CDT [facility] URINE RBC'S 11-20(A) Negative, 0-2 /hpf 06/09/2020 6:14 PM CDT [facility] EPITHELIAL CELLS Small amount /lpf 2019 6:14 PM CDT [facility] BACTERIA, URINE Many(A) Negative /hpf 06/09/2020 6:14 PM CDT [facility] Urine URINE SPECIMEN COLLECTION, CLEAN CATCH / Unknown Non-Phlebotomy Collection / Unknown 06/09/2020 5:13 PM CDT 06/09/2020 5:15 PM CDT Oswaldo Serrano MD URINE ORDERABLES Final Resu lt Performing Organization Address [facility] Co de Phone Number [facility] #1 [place] [address] * THYROID STIMULATING HORMONE (TSH) (06/09/2020 5:09 PM CDT) TSH 3.900 0.270 - 4.200 mIU/L 06/09/2020 6:02 PM CDT [facility] Blood Venipuncture / Unknown 06/09/2020 5:09 PM CDT 06/09/2020 5:15 PM CDT Oswaldo Serrano MD CHEMISTRY ORDERABLES Final Result [facility] [address] [place] [address] * (ABNORMAL) CMP (COMPREHENSIVE METABOLIC PANEL) (06/09/2020 5:09 PM CDT) SODIUM 139 136 - 144 mmol/L 06/09/2020 6:03 PM CDT [facility] POTASSIUM 4.2 3.5 - 5.1 mmol/L 06/09/2020 6:03 PM CDT [facility] CHLORIDE 99(L) 100 - 110 mmol/L 06/09/2020 6:03 PM CDT [facility] CO2, VENOUS 27 22 - 32 mmol/L 06/09/2020 6:03 PM CDT [facility] ANION GAP 17.2 8.0 - 20.0 mmol/L 06/09/2020 6:03 PM CDT [facility] GLUCOSE 84 70 - 99 mg/dL 06/09/2020 6:03 PM CDT [facility] BUN 27(H) 6 - 20 mg/dL 06/09/2020 6:03 PM CDT [facility] CREATININE, BLOOD 0.95 0.60 - 1.10 mg/dL 06/09/2020 6:03 PM CDT [facility] BUN/CREATININE RATIO 28(H) 12 - 20 ratio 06/09/2020 6:03 PM CDT [facility] TOTAL PROTEIN 7.8 6.0 - 8.3 g/dL 06/09/2020 6:03 PM CDT [facility] ALBUMIN 4.2 3.5 - 5.2 g/dL 06/09/2020 6:03 PM CDT [facility] Comment: The colormetric methods used for the determination of Albumin may lead to falsely elevated test results in patients suffering from renal failure or insufficiency due to interference with other proteins. A/G RATIO 1.2 1.0 - 2.0 06/09/2020 6:03 PM CDT [facility] CALCIUM 9.6 8.9 - 10.3 mg/dL 06/09/2020 6:03 PM CDT [facility] T BILI 0.4 <=1.2 mg/dL 06/09/2020 6:03 PM CDT [facility] SGOT (AST) 18 <=32 U/L 06/09/2020 6:03 PM CDT [facility] SGPT (ALT) 16 <=33 U/L 06/09/2020 6:03 PM CDT [facility] ALKALINE PHOSPHATASE 161(H) 35 - 105 U/L 06/09/2020 6:03 PM CDT [facility] GFR, EST. NONAFRICAN 60 >=60 06/09/2020 6:03 PM CDT [facility] GFR, EST. >60 >=60 020 6:03 PM CDT [facility] Comment: Creatinine Clearance is the preferred criteria for selecting drug dose adjustments in renally impaired patients. ??The GFR is provided as additional pertinent clinical information. GFR is reported in mL/min/1.73 sq m. Blood Venipuncture / Unknown 06/09/2020 5:09 PM CDT 06/09/2020 5:15 PM CDT Oswaldo Serrano MD CHEMISTRY ORDERABLES Final Result [facility] #[address] [place] [address] * SARS-COV-2 BY PCR (05/30/2020 12:01 PM CDT) SARSCOV2 NOT DETECTED (Reference Range for this test is Not Detected) 05/31/2020 9:28 PM CDT [facility] Swab NASOPHARYNGEAL STRUCTURE / Unknown Non-Phlebotomy Collection / Unknown 05/30/2020 12:01 PM CDT 05/30/2020 12:01 PM CDT Narrative [facility] - 05/31/2020 9:28 PM CDT Authorized Fact Sheets about this test for providers and patients are available at: https://www.fda.gov/medical-devices/mhihkagjz-jlptjgepuc-pmxsypu-devices/emergen -us e-authorizations us Oswaldo Serrano MD MICROBIOLOGY - GENERAL MAGDALENO MCINTOSH Final Result [facility] [address] [place] [address], documented in this encounter Visit Diagnoses Diagnosis Diarrhea, unspecified type- Primary Dizziness Dizziness and giddiness Flu-like symptoms Influenza with other respiratory manifestations documented in this encounter Additional Health Concerns Assessment Noted Time PHQ-9 Depression Total Score: 0 04/07/20 20 3:34 PM CDT documented as of this encounter Care Teams Trap Operator Relationship Specialty Start Date End Date Oswaldo Serrano MD #[address] [address] PCP - General Family Medicine 05/19/17 Angel Crowe DPM #[address] [address] Consulting Physician Podiatry 06/16/17 Mora Fritz Behavioral Health Navigator 06/15/18 documented as of this encounter
--- OUTSIDE RECORDS SUMMARY | 2024-10-07 00:30 | XMS_ITS | Encounter Summary ---
Author Organization [facility] Address [address] [place] [address] Phone Care Team Providers Care Javascript Programmer Name Role Phone Oswaldo Serrano MD Primary Care Provider [phone] Angel Crowe DPM Unavailable [phone] Mora Fritz Unavailable Unavailable Reason for Visit * Reason Comments Diarrhea Immunization/Injection flu shot Dizziness Encounter Details Date Type Department Care Team (Late st Contact Info) Description 07/18/2020 4:00 PM CDT Office Visit [facility] - Family Medicine [facility] #2 [place] [address] Connor Yuan APRN, MECHANIC FOREMAN #[address] [address] Diabetic polyneuropathy associated with type 2 diabetes mellitus (HCC) (Primary Dx); Subconjunctival hemorrhage of left eye; Encounter for immunization Discharge Disposition: Discharged to home or Selfcare [...] Sign Reading Time Taken Comments Blood Pressure 112/58 07/18/2020 4:24 PM CDT Pulse 71 07/18/2020 4:24 PM CDT Temperature 36.1 ??C (97 ??F) 07/18/2020 4:24 PM CDT Respiratory Rate 18 07/18/2020 4:24 PM CDT Oxygen Saturation 96% 07/18/2020 4:24 PM CDT Inhaled Oxygen Concentration - - Weight 127.1 kg (280 lb 1.6 oz) 07/18/2020 4:24 PM CDT Height 167.6 cm (5' 6 ) 07/18/2020 4:24 PM CDT Body Mass Index 45.21 07/18/2020 4:24 PM CDT documented in this encounter Progress Notes * Rama Isabel - 07/18/2020 4:00 PM CDT Loretta Yumiko Penn is a 59 y.o. female with current BMI: Body mass index is 45.21 kg/m??. Interventions discussed including: encourage daily physical activity and well- balanced diet. * Rama Isabel - 07/18/2020 4:00 PM CDT Loretta Penn, 59 y.o., female is here for Diarrhea, Immunization/Injection (flu shot), and Dizziness Medication Refills: Patient reports/denies need for medication [...] Yes Nica Muniz MD ergocalciferol (VITAMIN D) 49826 UNIT Capsule Take 1 Cap by mouth once a week. 04/08/20 Yes Connor Yuan APN, CNP escitalopram (LEXAPRO) 10 MG Tablet TAKE 1 TABLET BY MOUTH DAILY. 10/01/19 Yes Oswaldo Serrano MD fluticasone (FLONASE) 50 MCG/ACT Suspension 2 Sprays by Nasal route daily. Use in each nostril as directed. 04/07/20 Yes Connor Yuan APN, CNP furosemide (LASIX) 40 MG Tablet TK 1 T PO BID 04/29/17 Yes ProviderNica MD Glucose Blood Strip Test blood glucose 4x daily. E11.9, insulin dependent 03/26/20 Yes Ok Jorge MD insulin lispro (HUMALOG) 100 UNIT/ML Solution INJECT 10 UNITS AT BREKFAST, 5 UNITS AT LUNCH AND 10 UNITS AT DINNER --- CORRECTIONAL FACTOR INSULIN OF 1:25 UP TO 40 UNITS PER DAY 11/19/19 Yes Ok Jorge MD Insulin Pen Needle (PEN NEEDLES 31GX5/16 ) 31G X 8 MM Misc Three times a day 07/01/17 Yes Ok Jorge MD Insulin Syringe-Needle U-100 (TRUEPLUS INSULIN SYRINGE) 31G X 02/22 0.5 ML Misc USE 4 TIMES DAILY 12/19/19 Yes Ok Jorge MD Lancets Misc Test four times daily. E11.9, insulin dependent 12/19/19 Ok Jorge MD LANTUS 100 UNIT/ML Solution INJECT 16 UNITS EVERY MORNING. 11/19/19 Yes Ok Jorge MD levothyroxine (SYNTHROID) 50 MCG Tablet TAKE ONE TABLET DAILY IN THE MORNING ON AN EMPTY STOMACH 10/29/19 Yes Oswaldo Serrano MD lisinopril (PRINIVIL, ZESTRIL) 5 MG Tablet TAKE 1 TABLET BY MOUTH DAILY. 02/14/20 Yes Oswaldo Serrano MD nortriptyline (PAMELOR) 10 MG Capsule TAKE 1 CAPSULE DAILY 09/17/19 Yes Tom Quach MD omeprazole (PRILOSEC) 20 MG CAPSULE DELAYED RELEASE Take 1 Cap by mouth daily. 02/07/20 Oswaldo Serrano MD oxybutynin (DITROPAN) 5 MG Tablet Take 1 Tab by mouth 2 times daily. 05/19/20 Yes Carson Michel MD potassium chloride CR (KLORCON) 10 MEQ Tablet Controlled Release 08/18/19 Yes ProviderNica MD potassium chloride SA (KLORCON M) 20 MEQ Tablet Controlled Release 04/30/20 Yes ProviderNica MD rivaroxaban (XARELTO) 20 MG Tablet Take [...] Pap Smear 06/06/2020 ??? Influenza Immunization (1) 06/10/2020 ??? Mammogram 10/17/2020 Orders Pended: no The following BPA's have been addressed with the patient today: BMI, Flu, Pap and Depression * Coco Sierra CMA - 07/18/2020 4:00 PM CDT Loretta presents today for immunization/ injection of Flulaval ordered today 07/18/2020 by Connor Yuan. It was administered to right deltoid without incident. Patient tolerated it well. See immunizations/injections activity. * Connor Yuan APN, MECHANIC FOREMAN - 07/18/2020 4:00 PM CDT Subjective: CC: F/U for diarrhea; Needs diabetic shoes Loretta Penn is a 59-year-old female who presents to the office today to follow-up for acute diarrhea. Diarrhea is better. Some dizziness when standing. Reports has not been drinking very much water. Some left upper quadrant pain right along the bra line. No weight loss or appetite change no fever chills. No nausea or vomiting. Needs referral for diabetic shoes. Needs influenza vaccination today. No other acute complaints this time. The history is provided by the patient and a relative. The history is limited by a developmental delay. No medical language specialist was used. Diarrhea Associated symptoms include abdominal pain. Pertinent negatives include no arthralgias, chills, coughing, fever, headaches, myalgias or vomiting. Immunization/Injection Associated symptoms include abdominal pain. Pertinent negatives include no arthralgias, chest pain,chills, congestion, coughing, fatigue, fever, headaches, myalgias, nausea, numbness, rash, sore throat or vomiting. Dizziness Associated symptoms: no chest pain, no diarrhea, no headaches, no nausea, no palpitations, no shortness of breath and no vomiting Review of Systems Constitutional: Negative for chills, fatigue and fever. HENT: Negative for congestion, ear discharge, ear pain, postnasal drip, sinus pressure, sinus pain,sore throat and trouble swallowing. Eyes: Negative for photophobia, pain and discharge. Respiratory: Negative for cough, chest tightness, shortness of breath and wheezing. Cardiovascular: Negative for chest pain and palpitations. Gastrointestinal: Positive for abdominal pain. Negative for constipation, diarrhea, nausea and vomiting. Genitourinary: Negative for dysuria, flank pain, frequency, hematuria and urgency. Musculoskeletal: Negative for arthralgias, back pain and myalgias. Skin: Negative for rash and wound. Neurological: Positive for dizziness. Negative for seizures, syncope, numbness and headaches. Psychiatric/Behavioral: Negative [...] 2 times daily., Disp: , Rfl: ??? dilTIAZem (CARDIZEM) 30 MG Tablet, TK 1 T PO TID, Disp: , Rfl: 0 ??? diphenhydrAMINE (BENADRYL) 25 MG Tablet, Take 25 mg by mouth every 6 hours as needed for Itching or Sleep., Disp: , Rfl: ??? ergocalciferol (VITAMIN D) 93169 UNIT Capsule, Take 1 Cap by mouth once a week., Disp: 4 Cap, Rfl: 2 ??? escitalopram (LEXAPRO) 10 MG Tablet, TAKE 1 TABLET BY MOUTH DAILY., Disp: 90 Tab, Rfl: 3 ??? fluticasone (FLONASE) 50 MCG/ACT Suspension, 2 Sprays by Nasal route daily. Use in each nostrilas directed., Disp: 3 Bottle, Rfl: 3 ??? furosemide (LASIX) 40 MG Tablet, TK 1 T PO BID, Disp: , Rfl: 2 ??? Glucose Blood Strip, Test blood glucose 4x daily. E11.9, insulin dependent, Disp: 400 Strip, Rfl: 3 ??? insulin lispro (HUMALOG) 100 UNIT/ML Solution, INJECT 10 UNITS AT BREKFAST, 5 UNITS AT LUNCH AND 10 UNITS AT DINNER --- CORRECTIONAL FACTOR INSULIN OF 1:25 UP TO 40 UNITS PER DAY, Disp: 20 mL, Rfl: 2 ??? Insulin Pen Needle (PEN NEEDLES 31GX5/16 ) 31G X 8 MM Misc, Three times a day, Disp: 300 Each, Rfl: 3 ??? Insulin Syringe-Needle U-100 (TRUEPLUS INSULIN SYRINGE) 31G X 5/16 0.5 ML Misc, USE 4 TIMES DAILY, Disp: 400 Each, Rfl: 3 ??? Lancets Misc, Test four times daily. E11.9, insulin dependent, Disp: 400 Lancet, Rfl: 3 ??? LANTUS 100 UNIT/ML Solution, INJECT 16 UNITS EVERY MORNING., Disp: 10 mL, Rfl: 2 ??? levothyroxine (SYNTHROID) 50 MCG Tablet, TAKE ONE TABLET DAILY IN THE MORNING ON AN EMPTY STOMACH, Disp: 90 Tab, Rfl: 3 ??? lisinopril (PRINIVIL, ZESTRIL) 5 MG Tablet, TAKE 1 TABLET BY MOUTH DAILY., Disp: 90 Tab, Rfl: 2 ??? nortriptyline (PAMELOR) 10 MG Capsule, TAKE 1 CAPSULE DAILY, Disp: 90 Cap, Rfl: 3 ??? omeprazole (PRILOSEC) 20 MG CAPSULE DELAYED RELEASE, Take 1 Cap by mouth daily., Disp: 90 Cap, Rfl: 3 ??? oxybutynin (DITROPAN) 5 MG Tablet, Take 1 Tab by mouth 2 times daily., Disp: 180 Tab, Rfl: 3 ??? potassium chloride CR (KLORCON) 10 MEQ Tablet Controlled Release, , Disp: , Rfl: ??? potassium chloride SA (KLORCON M) 20 MEQ Tablet Controlled Release, , Disp: , Rfl: ??? rivaroxaban (XARELTO) 20 MG Tablet, Take 20 mg by [...] Drug use: No Objective: Physical Exam Vitals signs and nursing note reviewed. Constitutional: General: She is not in acute distress. Appearance: She is well-developed. She is obese. She is not diaphoretic. HENT: Head: Normocephalic and atraumatic. Right Ear: External ear normal. Left Ear: External ear normal. Nose: Nose normal. Eyes: General: Right eye: No discharge. Left eye: No discharge. Conjunctiva/sclera: Left eye: Hemorrhage present. Pupils: Pupils are equal, round, and reactive to light. Neck: Musculoskeletal: Normal range of motion and neck supple. Trachea: No tracheal deviation. Cardiovascular: Rate and Rhythm: Normal rate and regular rhythm. Heart sounds: Normal heart sounds. No murmur. No friction rub. No gallop. Pulmonary: Effort: Pulmonary effort is normal. No respiratory distress. Breath sounds: Normal breath sounds. Abdominal: General: Bowel sounds are normal. Palpations: Abdomen is soft. Tenderness: There is abdominal tenderness (On deep palpation) in the left upper quadrant. Comments: Exam limited by patient body habitus Musculoskeletal: Normal range of motion. General: No deformity. Lymphadenopathy: Cervical: No cervical adenopathy. Skin: General: Skin is warm and dry. Coloration: Skin is not pale. Findings: No rash. Neurological: Mental Status: She is alert and oriented to person, place, and time. Comments: Mild intellectual disability Psychiatric: Behavior: Behavior normal. Thought Content: Thought content normal. Judgment: Judgment normal. Vitals: 07/18/20 1624 BP: 112/58 Pulse: 71 Resp: 18 Temp: 97 ??F (36.1 ??C) TempSrc: Temporal SpO2: 96% Weight: 280 lb 1.6 oz (127.1 kg) Height: 5' 6 (1.676 m) Assessment and Plan See Diagnoses, Orders, Follow-up, and Instructions 1. Diabetic polyneuropathy associated with type 2 diabetes mellitus (HCC) 2. Subconjunctival hemorrhage of left eye 3. Encounter for immunization - INFLUENZA VACCINE QUAD IM - INFLUENZA (>3) IMMUNIZATION QUESTIONS Refer for fitting for diabetic shoes. Influenza vaccination today. Advised patient to avoid spicy or greasy foods. Increase water intake. Follow-up in office with PCP in September. I discussed all new medications and potential side effects or risks associated with them. Patient is to contact our office with any concerns. Patient instructions and educational materials were given to the patient. Patient (or patient digital sales representative) demonstrates verbal understanding of instructions [...] referring physician. Documentation for this visit on 07/18/20 was completed using a template. I have seen and examined the patient. Everything documented was personally performed at this visit with the necessary additions, deletions and changes made as appropriate. documented in this encounter Plan of Treatment Upcoming Encounters Date Type Department Care Team (Late st Contact Info) Description 10/08/2024 2:15 PM PHOTOGRAMMETRIST Office Visit [facility] #2 [place] [address] Orlin Urbina APRN, MECHANIC FOREMAN #2 [place] [address] 10/18/2024 2:15 PM PHOTOGRAMMETRIST Appointment [facility] 1 [place] [address] Oswaldo Serrano MD #[address] [address] Discharge Disposition: Discharged to home or Selfcare 11/29/2024 2:30 PM PHOTOGRAMMETRIST [facility] - [facility] #2 [place] [address] Oswaldo Serrano MD #[address] [address] 11/30/2024 3:00 PM PHOTOGRAMMETRIST [facility] [place] #[address] [place] [address] Ok Jorge MD #[address] [address] documented as of this encounter Visit Diagnoses Diagnosis Diabetic polyneuropathy associated with type 2 diabetes mellitus (HCC)- Primary Subconjunctival hemorrhage of left eye Encounter for immunization Need for other specified prophylactic vaccination against single bacterial disease documented in this encounter Additional Health Concerns Assessment Noted Time PHQ-9 Depression Total Score: 2 07/18/20 20 4:26 PM CDT documented as of this encounter Care Teams Javascript Programmer Relationship Specialty Start Date End Date Oswaldo Serrano MD #[address] [address] PCP - General Family Medicine 05/19/17 Angel Crowe DPM #[address] [address] Consulting Physician Podiatry 06/16/17 Mora Fritz Behavioral Health Navigator 06/15/18 documented as of this encounter
--- OUTSIDE RECORDS SUMMARY | 2024-10-07 00:30 | XMS_ITS | Encounter Summary ---
Author Organization [facility] Care Team Providers Care Can Filling Machine Operator Name Role Phone Oswaldo Serrano MD Primary Care Provider [phone] Angel Crowe DPM Unavailable [phone] Mora Fritz Unavailable Unavailable Encounter Details Date Type Department Care Team (Latest Contact Info) Description 05/28/2020 Travel Social History Tobacco Use Types Packs/Day [...] st Contact Info) Description 10/08/2024 2:15 PM HOME CARE MANAGER Office Visit [facility] #2 [place] [phone] Orlin Urbina BULK FILLER, FOAM GUN OPERATOR #2 [place] [address] 10/18/2024 2:15 PM HOME CARE MANAGER Appointment [facility] 1 [place] [address] Oswaldo Serrano MD #[address] [address] Discharge Disposition: Discharged to home or Selfcare 11/29/2024 2:30 PM HOME CARE MANAGER [facility] - [facility] - [place] #2 [place] [address] Oswaldo Serrano MD #[address] [address] 11/30/2024 3:00 PM HOME CARE MANAGER Office Visit [facility] - Endocrinology - [place] #2 [place] [phone] Ok Jorge MD #[address] [address] documented as of this encounter Visit Diagnoses Not on filedocumented in this encounter Additional Health Concerns Assessment Noted Time PHQ-9 Depression Total Score: 0 04/07/20 20 3:34 PM CDT documented as of this encounter Care Teams Can Filling Machine Operator Relationship Specialty Start Date End Date Oswaldo Serrano MD #[address] [address] PCP - General Family Medicine 05/19/17 Angel Crowe DPM #[address] [address] Consulting Physician Podiatry 06/16/17 Mora Fritz Behavioral Health Navigator 06/15/18 documented as of this encounter
--- OUTSIDE RECORDS SUMMARY | 2024-10-07 00:30 | XMS_ITS | Encounter Summary ---
Author Organization [facility] Address [address] [place] [address] Phone Care Team Providers Care Infant Room Teacher Name Role Phone Oswaldo Serrano MD Primary Care Provider [phone] Angel Crowe DPM Unavailable [phone] Mora Fritz Unavailable Unavailable Reason for Referral * Radiology Services (Routine) - Closed Specialty Diagnoses / Procedures Referred By Praful ferro Referred To Contact Radiology Diagnoses Encounter for screening mammogram for breast cancer Procedures SHABANA SCREENING BILATERAL DIGITAL W CAD W REGAN Oswaldo Serrano MD #[address] [address] Phone: tel: fax: Referral ID Status Reason Start Date Expiration Date Visits Re quested Visits Authorized [id number] Closed 03/18/2020 1 1 Reason for Visit * Reason Comments Hyperlipidemia Encounter Details Date Type Department Care Team ([facility] st Contact Info) Description 03/18/2020 2:30 PM CDT Telemedicine [facility] - Family [facility] [place] [address] [place] [address] Oswaldo Serrano MD [address] [address] Hyperlipidemia, unspecified hyperlipidemia type (Primary Dx); Encounter for screening mammogram for breast cancer; Urinary frequency Social History Tobacco Use Types Packs/Day Years [...] have Coronavirus / COVID-19? No / Unsure 03/18/2020 1:49 PM CDT documented as of this encounter Progress Notes * Oswaldo Serrano MD - 03/18/2020 2:30 PM CDT Patient was assessed via telephone for a duration of 11 minutes. Patient verbally consented for this service to be performed and billed. CC: Urinary frequency. S: Spoke with Dr. Jorge today. Overdue for mammogram. Last one was in 2019 & was normal. Triglycerides were 221. Sister says she has urinary frequency, but no dysuria. I have reviewed all the systems. They are negative except as mentioned in HPI. O: Psych: alert & oriented. A/P: 1. Hyperlipidemia - check in 3 months. 2. Screening for breast cancer - mammogram ordered. 3. Urinary frequency - check UA. 4. F/U with me in 3 months. documented in this encounter Plan of Treatment Upcoming Encounters Date Type Department Care Team (Late st Contact Info) Description 10/08/2024 2:15 PM APPLICATIONS MANAGER Office Visit [facility] #2 [place] [address] Orlin Urbina APRN, METAL CASKET MAKER #2 [place] [address] 10/18/2024 2:15 PM APPLICATIONS MANAGER [facility]ointment [facility] 1 [place] [phone] Oswaldo Serrano MD #2 [facility] [address] [place] [address] Discharge Disposition: Discharged to home or Selfcare 11/29/2024 2:30 PM APPLICATIONS MANAGER Office [facility] - [place] #2 [place] [address] Oswaldo Serrano MD #2 [facility] [address] [place] [address] 11/30/2024 3:00 PM APPLICATIONS MANAGER Office Visit [facility] - Endocr[facility]ology - [place] #2 [place] [address] Ok Jorge MD #2 [facility] [address] [place] [address] Scheduled Orders Name Type Priority Associated Diagnoses Orde r Schedule SHABANA SCREENING BILATERAL DIGITAL W CAD W REGAN Imaging Routine Encounter for screening mammogram for breast cancer Expected: 03/18/2020 (Approximate), Expires: 03/18/2021 documented as of this encounter Results * (ABNORMAL) LIPID PANEL (09/11/2020 1:26 PM APPLICATIONS MANAGER) CHOLESTEROL 173 <=200 mg/dL 09/11/2020 3:07 PM APPLICATIONS MANAGER [facility] TRIGLYCERIDES 120 <150 mg/dL 09/11/2020 3:07 PM APPLICATIONS MANAGER [facility] HDL CHOLESTEROL 41.6 >40 mg/dL 0 3:07 PM APPLICATIONS MANAGER [facility] LDL 107 5 - 130 mg/dL 09/11/2020 3:07 PM APPLICATIONS MANAGER [facility] VLDL 24 5 - 55 mg/dL 09/11/2020 3:07 PM APPLICATIONS MANAGER [facility] CHOL/HDL RATIO 4.2 0.0 - 4.4 09/11/2020 3:07 PM APPLICATIONS MANAGER [facility] NON-HDL CHOLESTEROL 131.4(H) <130 mg/dL 09/11/2020 3:07 PM APPLICATIONS MANAGER [facility] IS THE PATIENT REQUIRED TO BE FASTING? Yes 09/11/2020 3:07 PM APPLICATIONS MANAGER [facility] Blood Venipuncture / Unknown 09/11/2020 1:26 PM APPLICATIONS MANAGER 09/11/2020 2:32 PM APPLICATIONS MANAGER Result [facility] Oswaldo Serrano MD CHEMISTRY ORDERABLES Final Result [facility] #1 [place] [address] * URINALYSIS REFLEX IF INDICATED BY ABNORMAL RESULTS (03/20/2020) Urine URINE SPECIMEN COLLECTION, CLEAN CATCH / Unknown Result [facility] Oswaldo Serrano MD URINE ORDERABLES Final Resu lt documented in this encounter Visit Diagnoses Diagnosis Hyperlipidemia, unspecified hyperlipidemia type- Primary Encounter for screening mammogram for breast cancer Urinary frequency documented in this encounter Additional Health Concerns Assessment Noted Time PHQ-9 Depression Total Score: 1 12/14/19 20 2:55 PM APPLICATIONS MANAGER documented as of this encounter Care Teams Infant Room Teacher Relationship Specialty Start Date End Date Oswaldo Serrano MD [address] [address] PCP - General Family Medicine 05/19/17 Angel Crowe DPM #[address] [address] Consulting Physician Podiatry 06/16/17 Mora Fritz [place] Behavioral Health Navigator 06/15/18 documented as of this encounter
--- OUTSIDE RECORDS SUMMARY | 2024-10-07 00:30 | XMS_ITS | Encounter Summary ---
Author Organization [facility] Address [address] [place] [address] Phone Care Team Providers Care Motion Picture Set Worker Name Role Phone Oswaldo Serrano MD Primary Care Provider [phone] Angel Crowe DPM Unavailable [phone] Mora Fritz Unavailable Unavailable Reason for Visit * Reason Onset Date Comments Medication Management 01/28/2020 Encounter Details Date Type Department Care Team (Late st Contact Info) Description 01/28/2020 Telephone [facility] [address] [place] [address] Oswaldo Serrano MD #[address] [address] Medication Management Social History Tobacco [...] Telephone Encounter - Oswaldo Serrano MD - 01/30/2020 12:33 AM CDT Axid bid ordered & med list updated. Thanks! * Telephone Encounter - Amina Nicolas, RN - 01/28/2020 10:43 AM CDT Ranitidine has been recalled. Please send an alternative documented in this encounter Plan of Treatment Upcoming Encounters Date Type Department Care Team (Late st Contact Info) Description 10/08/2024 2:15 PM RADIOGRAPHIC TECHNOLOGIST Office Visit [facility] #2 [place] [address] Orlin Urbina APRN, TREE EXPERT #2 [place] [address] 10/18/2024 2:15 PM RADIOGRAPHIC TECHNOLOGIST Appointment [facility] Mammography 1 [place] [address] Oswaldo Serrano MD #[address] [address] Discharge Disposition: Discharged to home or Selfcare 11/29/2024 2:30 PM RADIOGRAPHIC TECHNOLOGIST Office [facility] #2 [place] [address] Oswaldo Serrano MD #[address] [address] 11/30/2024 3:00 PM RADIOGRAPHIC TECHNOLOGIST Office Visit [facility] - Endocrinology - [place] #2 [place] [address] Ok Jorge MD #[address] [address] documented as of this encounter Visit Diagnoses Not on filedocumented in this encounter Additional Health Concerns Assessment Noted Time PHQ-9 Depression Total Score: 1 12/14/19 20 2:55 PM RADIOGRAPHIC TECHNOLOGIST documented as of this encounter Care Teams Motion Picture Set Worker Relationship Specialty Start Date End Date Oswaldo Serrano MD #[address] [address] PCP - General Family Medicine 05/19/17 Angel Crowe DPM #[address] [address] Consulting Physician Podiatry 06/16/17 Mora Fritz Behavioral Health Navigator 06/15/18 documented as of this encounter
--- OUTSIDE RECORDS SUMMARY | 2024-10-07 00:30 | XMS_ITS | Encounter Summary ---
Author Organization [facility] Address [address] [place] [address] Phone Care Team Providers Care Batching Operator Name Role Phone Oswaldo Serrano MD Primary Care Provider [phone] Angel Crowe DPM Unavailable [phone] Mora Fritz Unavailable Unavailable Reason for Visit * Reason Comments Blood in Urine * Consult, Test & Initiate Treatment (Less Than 4 Weeks) - Closed Specialty Diagnoses / Procedures Referred By Praful ferro Referred To Contact Urology Diagnoses Hematuria, unspecified type Oswaldo Serrano MD #[address] [address] Phone: tel: fax: [facility] #2 [place] [address] Phone: tel: fax: Referral ID Status Reason Start Date Expiration Date Visits Re quested Visits Authorized [id number] Closed 10/26/2019 1 1 Encounter Details Date Type Department Care Team (Late st Contact Info) Description 05/19/2020 2:30 PM CDT Office Visit [facility] [address] [place] [address] Oswaldo Serrano MD [address] [facility] [address] [place] [address] Carson Michel MD [address] [facility] [address] [place] [address] OAB (overactive bladder) (Primary Dx); Hematuria, unspecified type Discharge Disposition: Discharged to home or Selfcare Social History Tobacco Use Types Packs/Day Years Used Date Smoking Tobacco: Never Smokeless Tobacco: Never Tobacco Cessation:Counseling Given: No Alcohol Use Standard Drinks/Week Comments No 0 (1 standard drink = 0.6 oz pur e alcohol) PHQ-2 Answer Date Recorded Total Score - Questions 1-9 2 06/2020 Sexually Active Control Partners Comments Never Male [...] Sign Reading Time Taken Comments Blood Pressure 114/68 05/19/2020 2:47 PM CDT Pulse 89 05/19/2020 2:47 PM CDT Temperature 36.2 ??C (97.1 ??F) 05/19/2020 2:47 PM CD T Respiratory Rate 16 05/19/2020 2:47 PM CDT Oxygen Saturation 97% 05/19/2020 2:47 PM CDT Inhaled Oxygen Concentration - - Weight 124 kg (273 lb 6.4 oz) 05/19/2020 2:47 PM CDT Height 167.6 cm (5' 6 ) 05/19/2020 2:47 PM CDT Body Mass Index 44.13 05/19/2020 2:47 PM CDT documented in this encounter Progress Notes * Montserrat Moscoso RMA - 05/19/2020 2:30 PM CDT POCT UA collected per order of Dr. Michel on 05/19/20 * Carson Michel MD - 05/19/2020 2:30 PM CDT Subjective: HPI Chief complaint: Hematuria. Patient is a 51-year-old female with history of diabetes referred for evaluation of microscopic hematuria noted on urinalysis. She has no fever, chills or abdominal pain at this time. She denies any history of kidney stones. Patient does complain of increased urinary urgency and incontinence. She is currently managed oxybutynin 5 mg daily. States that there was some improvement but still has issues. Denies any history of smoking, no family history of malignancy. Review of Systems All other systems reviewed and are negative. Allergies Allergen Reactions ??? Sulfa Antibiotics Unknown and Hives ??? Sulfamethoxazole-Trimethoprim Hives Current Outpatient Medications Medication Sig Dispense Refill ??? ASPIR-LOW 81 [...] for Itchingor Sleep. ??? ergocalciferol (VITAMIN D) 51777 UNIT Capsule Take 1 Cap by mouth [...] insulin dependent 400 Strip 3 ??? insulin lispro (HUMALOG) 100 UNIT/ML Solution INJECT 10 UNITS AT BREKFAST, 5 UNITS AT LUNCH AND10 UNITS AT DINNER --- CORRECTIONAL FACTOR INSULIN [...] E11.9, insulin dependent 400 Lancet 3 ??? LANTUS 100 UNIT/ML Solution INJECT 16 UNITS EVERY MORNING. 10 mL 2 ??? levothyroxine (SYNTHROID) 50 [...] (KLORCON) 10 MEQ Tablet Controlled Release ??? rivaroxaban (XARELTO) 20 MG Tablet Take 20 mg by mouth daily (with dinner). Take with food. No current facility-administered medications for this visit. Past Medical History Positives Diagnosis Date ??? [...] Not on file ??? Highest education level: Not on file Occupational History ??? Not on file Social Needs ??? Financial resource strain: Not on file ??? Food insecurity Worry: Not on file Inability: Not on file ??? Transportation needs Medical: Not on file Non-medical: Not on file Tobacco Use ??? Smoking status: Never Smoker ??? Smokeless tobacco: Never Used Substance and Sexual Activity ??? Alcohol use: No ??? Drug use: No ??? Sexual activity: Never Partners: Male Lifestyle ??? Physical activity Days per week: Not on file Minutes per session: Not on file ??? Stress: Not on file Relationships ??? Social connections Talks on phone: Not on file Gets together: Not on file Attends yarsani service: Not on file Active member of club or organization: Not on file Attends meetings of clubs or organizations: Not on file Relationship status: Not on file ??? Intimate partner violence Fear of current or ex partner: Not on file Emotionally abused: Not on file Physically abused: Not on file Forced sexual activity: Not on file Other Topics Concern ??? Not on file Social History Narrative ??? Not on file Family History Problem Relation Age of Onset ??? Diabetes Mother ??? Hypertension Mother ??? Heart Disease Mother ??? Diabetes Father ??? Heart Disease Father ??? Heart Attack Father ??? Hypertension Father Objective: Physical Exam Vitals signs reviewed. Constitutional: Appearance: She is well-developed. HENT: Head: Normocephalic and atraumatic. Eyes: Conjunctiva/sclera: Conjunctivae normal. Pupils: Pupils are equal, round, and reactive to light. Neck: Musculoskeletal: Normal range of motion and neck supple. Cardiovascular: Rate and Rhythm: Normal rate and regular rhythm. Pulmonary: Effort: Pulmonary effort is normal. No respiratory distress. Abdominal: General: Bowel sounds are normal. There is no distension. Palpations: Abdomen is soft. Tenderness: There is no abdominal tenderness. Musculoskeletal: Normal range of motion. Skin: General: Skin is warm and dry. Neurological: Mental Status: She is alert and oriented to person, place, and time. Psychiatric: Behavior: Behavior normal. Results for orders placed or performed in visit on 05/19/20 POCT UA AUTOMATED W/O MICRO Result Value Ref Range SPECIFIC GRAVITY 1.010 1.003 - 1.030 URINE PH 5.0 5.0 - 9.0 UR, LEUKOCYTES Negative Negative Lucas/uL UR, NITRITE Negative Negative UR, PROTEIN Negative Negative mg/dL UR, GLUCOSE TR (50 mg/dL) (A) Normal mg/dL UR, KETONE Negative Negative mg/dL UR, UROBILINOGEN Normal Normal mg/dL UR, BILIRUBIN Negative Negative mg/dL UR. BLOOD Negative Negative URINALYSIS COLOR Yellow URINALYSIS CLARITY Clear Assessment and Plan Assessment ICD-10-CM 1. OAB (overactive bladder) N32.81 oxybutynin (DITROPAN) 5 MG Tablet 2. Hematuria, unspecified type R31.9 UROLOGY REFERRAL POCT UA AUTOMATED W/O MICRO POCT UA AUTOMATED W/O MICRO Return in 2 months for repeat urinalysis documented in this encounter Miscellaneous Notes * Addendum Note - Dariel Atkinson RMA - 05/19/2020 2:30 PM CDTAddended by: DARIEL ATKINSON on: 05/21/2021 10:44 AM Modules accepted: Orders documented in this encounter Plan of Treatment Upcoming Encounters Date Type Department Care Team (Late st Contact Info) Description 10/08/2024 2:15 PM COMPUTER SYSTEMS ENGINEER Office Visit [facility] #2 [place] [address] Orlin Urbina, COPYING MACHINE REPAIRER, IGNITION SPECIALIST #2 [place] [address] 10/18/2024 2:15 PM COMPUTER SYSTEMS ENGINEER Appointment [facility] Mammography 1 [place] [address] Oswaldo Serrano MD #[address] [address] Discharge Disposition: Discharged to home or Selfcare 11/29/2024 2:30 PM COMPUTER SYSTEMS ENGINEER Office Visit [facility] - [place] #2 [place] [address] Oswaldo Serrano MD #2 [facility] [address] [place] [address] 11/30/2024 3:00 PM COMPUTER SYSTEMS ENGINEER Office Visit [facility] - Endocrinology - [place] #2 [place] [address] Ok Jorge MD #2 [facility] [address] [place] [address] documented as of this encounter Procedures Procedure Name Priority Date/Time Associated Diagnosis Comments POCT UA AUTOMATED W/O MICRO Routine 05/19/2020 2:54 PM CDT Hematuria, unspecified type documented in this encounter Results * (ABNORMAL) POCT UA AUTOMATED W/O MICRO (05/19/2020 2:54 PM CDT) SPECIFIC GRAVITY 1.010 1.003 - 1.030 URINE PH 5.0 5.0 - 9.0 UR, LEUKOCYTES Negative Negative Lucas/uL UR, NITRITE Negative Negative UR, PROTEIN Negative Negative mg/dL UR, GLUCOSE TR (50 mg/dL)(A) Normal mg/dL UR, KETONE Negative Negative mg/dL UR, UROBILINOGEN Normal Normal mg/dL UR, BILIRUBIN Negative Negative mg/dL UR. BLOOD Negative Negative URINALYSIS COLOR Yellow URINALYSIS CLARITY Clear Urine 05/19/2020 2:54 PM CDT Carson Michel MD POINT OF CARE TESTING ([facility]) Final Result documented in this encounter Visit Diagnoses Diagnosis OAB (overactive bladder)- Primary Hypertonicity of bladder Hematuria, unspecified type documented in this encounter Additional Health Concerns Infection Onset Date Last Indicated Resolved Time COVID - 19 05/29/2020 05/30/2020 06/01/2020 4:09 PM CDT COVID - 19 10/09/2020 10/09/2020 10/11/2020 5:17 AM COMPUTER SYSTEMS ENGINEER COVID - 19 11/12/2020 11/12/2020 11/16/2020 9:49 AM COMPUTER SYSTEMS ENGINEER Assessment Noted Time PHQ-9 Depression Total Score: 0 04/07/20 3:34 PM CDT documented as of this encounter Care Teams Batching Operator Relationship Specialty Start Date End Date Oswaldo Serrano MD #[address] [address] PCP - General Family Medicine 05/19/17 Angel Crowe DPM #[address] [address] Consulting Physician Podiatry 06/16/17 Mora Fritz Behavioral Health Navigator 06/15/18 documented as of this encounter
--- OUTSIDE RECORDS SUMMARY | 2024-10-07 00:30 | XMS_ITS | Encounter Summary ---
Author Organization [facility] Address [address] [place] [address] Phone Care Team Providers Care Television Cameraman Name Role Phone Oswaldo Serrano MD Primary Care Provider [phone] Angel Crowe DPM Unavailable Mora Fritz Unavailable Unavailable Reason for Visit * Reason Comments Medication Refill Encounter Details Date Type Department Care Team (Late st Contact Info) Description 02/14/2020 Refill [facility] [address] [place] [address] Oswaldo Serrano MD #[address] [address] Medication Refill Social History Tobacco [...] Miscellaneous Notes * Telephone Encounter - Amina Nicolas RN - 02/14/2020 12:26 PM CDT Medication(s) refilled and signed per [facility] Chronic Medication Refill Standing Order for Pediatric and Adult Patients. documented in this encounter Plan of Treatment Upcoming Encounters Date Type Department Care Team (Late st Contact Info) Description 10/08/2024 2:15 PM DIRECTOR REHABILITATION PROGRAM Office Visit [facility] #2 [place] [address] Orlin Urbina, BROKE HANDLER, LAB PACK CHEMIST #2 [place] [address] 10/18/2024 2:15 PM DIRECTOR REHABILITATION PROGRAM Appointment [facility] Mammography 1 [place] [address] Oswaldo Serrano MD #[address] [address] Discharge Disposition: Discharged to home or Selfcare 11/29/2024 2:30 PM DIRECTOR REHABILITATION PROGRAM Office Visit [facility] - [facility] #2 [place] [address] Oswaldo Serrano MD #[address] [address] 11/30/2024 3:00 PM DIRECTOR REHABILITATION PROGRAM Office Visit [facility] - Endocr[facility]ology - [place] #2 [place] [address] Ok Jorge MD #2 [facility] [address] [place] [address] documented as of this encounter Visit Diagnoses Diagnosis Orthostatic hypotension documented in this encounter Additional Health Concerns Assessment Noted Time PHQ-9 Depression Total Score: 1 12/14/19 20 2:55 PM DIRECTOR REHABILITATION PROGRAM documented as of this encounter Care Teams Television Cameraman Relationship Specialty Start Date End Date Oswaldo Serrano MD #2 [facility] [address] [place] [address] PCP - General Family Medicine 05/19/17 Angel Crowe DPM #2 [facility] [address] [place] [address] Consulting Physician Podiatry 06/16/17 Mora Fritz Behavioral Health Navigator 06/15/18 documented as of this encounter
--- OUTSIDE RECORDS SUMMARY | 2024-10-07 00:30 | XMS_ITS | Encounter Summary ---
Author Organization [employer] Care Team Providers Care Record Producer Name Role Phone Oswaldo Serrano MD Primary Care Provider [phone] Angel Crowe DPM Unavailable [phone] Mora Fritz Unavailable Unavailable Encounter Details Date Type Department Care Team (Latest Contact Info) Description 05/19/2020 Travel Social History Tobacco Use Types Packs/Day [...] have Coronavirus / COVID-19? No / Unsure 05/19/2020 2:41 PM CDT documented as of this encounter Plan of Treatment Upcoming Encounters Date Type Department Care Team (Late st Contact Info) Description 10/08/2024 2:15 PM NEUROLOGY NURSE Office Visit [facility] #2 [place] [address] Orlin Urbina HUNTER, CREPE BOX TENDER #2 [place] [address] 10/18/2024 2:15 PM NEUROLOGY NURSE Appointment [facility] Mamm[facility] 1 [place] [address] Oswaldo Serrano MD #[address] [address] Discharge Disposition: Discharged to home or Selfcare 11/29/2024 2:30 PM NEUROLOGY NURSE Office Visit [facility] - [place] #2 [place] [address] Oswaldo Serrano MD #[address] [address] 11/30/2024 3:00 PM NEUROLOGY NURSE Office Visit [facility] - [place] #2 [place] [address] Ok Jorge MD #[address] [address] documented as of this encounter Visit Diagnoses Not on filedocumented in this encounter Additional Health Concerns Assessment Noted Time PHQ-9 Depression Total Score: 0 04/07/20 20 3:34 PM CDT documented as of this encounter Care Teams Record Producer Relationship Specialty Start Date End Date Oswaldo Serrano MD #[address] [address] PCP - General Family Medicine 05/19/17 Angel Crowe DPM #[address] [address] Consulting Physician Podiatry 06/16/17 Mora Fritz Behavioral Health Navigator 06/15/18 documented as of this encounter
--- OUTSIDE RECORDS SUMMARY | 2024-10-07 00:30 | XMS_ITS | Encounter Summary ---
Author Organization [facility] Address [address] [facility] [place] [address] Phone Care Team Providers Care Amphibian Crewmember Name Role Phone Oswaldo Serrano MD Primary Care Provider Angel Crowe DPM Unavailable Mora Fritz Unavailable Unavailable Reason for Visit * Reason Onset Date Comments Diarrhea 05/28/2020 Encounter Details Date Type Department Care Team (Late st Contact Info) Description 05/28/2020 Nurse Triage [facility] [address] [place] [address] Oswaldo Serrano MD #[address] [address] Diarrhea Social History Tobacco Use Types Packs/Day [...] Telephone Encounter - Oswaldo Serrano MD - 05/28/2020 10:00 PM CDT Thanks for scheduling her! * Telephone Encounter - Tina Banuelos RN - 05/28/2020 3:44 PM CDT Images from the original note were not included. SITUATION: Light headed and diarrhea BACKGROUND: States that diarrhea started yesterday and light headedness started Tuesday ASSESSMENT: Symptom Description / Location: Liquid stool, no blood, states that upper abdomin hurts sometimes, weakness, nausea, dizziness, 3 episode of diarrhea in a day, states she feels like her throat is dry(sister states this is chronic and she was given nasal spray for it), upper back hurts which she states has been occurring over the last week. States has a dry cough for the last week which sister believes is due to her dry throat. Sister states that patient was in a [place]ed area last month and other sister told her to see if symptoms could be from a tick bite. Sister reports they never found a tick on patient or any rash on patient. Pain (0-10): Back pain Temp: Denies fever Treatment / Response: Pepto Bismol taken today and yesterday and states that helped, drinking pedialite LMP / / : No LMP recorded [...] information with caller. Reason for Disposition ??? MILD diarrhea (e.g., 1-3 or more stools than normal in past 24 hours) diarrhea without known cause and present > 7 days Protocols used: [id number] Guidelines advise patient be seen in the office in next 3 days. Call placed to back of office and spoke to Tina DASILVA who states to make appointment a phone call. Tina will change visit from video to phone call visit as this RN is unable to schedule telephone visit. Patient scheduled to see Dr. Serrano tomorrow 05/29/20 at 4:15pm. Routing to provider to advise. Travel Screening Question Response In the last month, have you been in contact with someone who was confirmed or suspected to have Coronavirus / COVID-19? No / Unsure Do you have any of the following symptoms? Diarrhea;Joint pain;Cough;Abdominal pain;Weakness;Severeheadache;Muscle pain Have you traveled internationally in the last month? No Travel History Travel since 04/27/20 No documented travel since 04/27/20 COVID-19 Testing Priority for Loretta Penn: 2 POSITIVE SCREEN BROWN GUIDRY documented in this encounter Plan of Treatment Upcoming Encounters Date Type Department Care Team (Late st Contact Info) Description 10/08/2024 2:15 PM ADVERTISING COPY WRITER Office Visit [facility] #2 [place] [phone] Orlin Urbina, NUT AND BOLT ASSEMBLER, PAIN MANAGEMENT SPECIALIST #2 [place] [address] 10/18/2024 2:15 PM ADVERTISING COPY WRITER Appointment [facility] Mammography 1 [place] [address] Oswaldo Serrano MD #[address] [address] Discharge Disposition: Discharged to home or Selfcare 11/29/2024 2:30 PM ADVERTISING COPY WRITER Office Visit [facility] - Family Medicine [facility] #2 [place] [address] Oswaldo Serrano MD #[address] [address] 11/30/2024 3:00 PM ADVERTISING COPY WRITER Office Visit [facility] - Endocrinology - [place] #2 [place] [address] Ok Jorge MD #[address] [address] documented as of this encounter Visit Diagnoses Not on filedocumented in this encounter Additional Health Concerns Infection Onset Date Last Indicated Resolved Time COVID - 19 05/29/2020 05/30/2020 06/01/2020 4:09 PM CDT Assessment Noted Time PHQ-9 Depression Total Score: 0 04/07/20 3:34 PM CDT documented as of this encounter Care Teams Amphibian Crewmember Relationship Specialty Start Date End Date Oswaldo Serrano MD #[address] [address] PCP - General Family Medicine 05/19/17 Angel Crowe DPM #[address] [address] Consulting Physician Podiatry 06/16/17 Mora Fritz Behavioral Health Navigator 06/15/18 documented as of this encounter
--- OUTSIDE RECORDS SUMMARY | 2024-10-07 00:30 | XMS_ITS | Encounter Summary ---
Author Organization [facility] Address [address] [place] [address] Phone Care Team Providers Care Stay Cutter Name Role Phone Oswaldo Serrano MD Primary Care Provider Angel Crowe DPM Unavailable Mora Fritz Unavailable Unavailable Encounter Details Date Type Department Care Team (Late st Contact Info) Description 02/07/2020 Telephone [facility] - Family Medicine [facility] #2 [place] [phone] Oswaldo Serrano MD #[address] [address] Social History Tobacco Use Types Packs/Day Years [...] Telephone Encounter - Oswaldo Serrano MD - 02/07/2020 9:58 AM CDT DONE. documented in this encounter Plan of Treatment Upcoming Encounters Date Type Department Care Team (Late st Contact Info) Description 10/08/2024 2:15 PM ANCHORER Office Visit [facility] UROLOGY #2 [place] [address] Orlin Urbina PHOTOGRAPHY SPOTTER, CYBER LEGAL ADVISOR #2 [place] [address] 10/18/2024 2:15 PM ANCHORER Appointment [facility] Mammography 1 [place] [phone] Oswaldo Serrano MD #[address] [address] Discharge Disposition: Discharged to home or Selfcare 11/29/2024 2:30 PM ANCHORER Office Visit [facility] - Family Medicine - [place] #2 [place] [address] Oswaldo Serrano MD #2 [facility] [address] [place] [address] 11/30/2024 3:00 PM ANCHORER Office Visit [facility] - Endocrinology - [place] #2 [place] [address] Ok Jorge MD #[address] [place] [address] documented as of this encounter Visit Diagnoses Not on filedocumented in this encounter Additional Health Concerns Assessment Noted Time PHQ-9 Depression Total Score: 1 12/14/19 20 2:55 PM ANCHORER documented as of this encounter Care Teams Stay Cutter Relationship Specialty Start Date End Date Oswaldo Serrano MD #2 [facility] [address] [place] [address] PCP - General Family Medicine 05/19/17 Angel Crowe DPM #[address] [address] Consulting Physician Podiatry 06/16/17 Mora Fritz Behavioral Health Navigator 06/15/18 documented as of this encounter
--- OUTSIDE RECORDS SUMMARY | 2024-10-07 00:30 | XMS_ITS | Encounter Summary ---
Author Organization [facility] Address [address] [place] [address] Phone Care Team Providers Care Scrub Woman Name Role Phone Oswaldo Serrano MD Primary Care Provider [phone] Angel Crowe DPM Unavailable [phone] Mora Fritz Unavailable Unavailable Reason for Visit * Reason Onset Date Comments Form Completion 04/08/2020 Encounter Details Date Type Department Care Team (Late st Contact Info) Description 04/08/2020 Telephone [facility] - Family Medicine [facility] #2 [place] [address] Oswaldo Serrano MD #[address] [address] Form Completion Social History Tobacco Use Types [...] Telephone Encounter - Zainab Roblero RN - 04/08/2020 12:48 PM CDT Order for diabetic shoes faxed to [employer]. documented in this encounter Plan of Treatment Upcoming Encounters Date Type Department Care Team (Late st Contact Info) Description 10/08/2024 2:15 PM SLIDE FASTENER CHAIN ASSEMBLER Office Visit [facility] UROLOGY #2 [place] [address] Orlin Urbina, SINGER AND UNLOADER, RABBIT FANCIER #2 [place] [address] 10/18/2024 2:15 PM SLIDE FASTENER CHAIN ASSEMBLER Appointment [facility] Mammography 1 [place] [address] Oswaldo Serrano MD #[address] [address] Discharge Disposition: Discharged to home or Selfcare 11/29/2024 2:30 PM SLIDE FASTENER CHAIN ASSEMBLER Office Visit [facility] - Family Medicine [facility] #2 [place] [phone] Oswaldo Serrano MD #[address] [address] 11/30/2024 3:00 PM SLIDE FASTENER CHAIN ASSEMBLER Office Visit [facility] - Endocrinology - [place] #2 [place] [address] Ok Jorge MD #[address] [address] documented as of this encounter Visit Diagnoses Not on filedocumented in this encounter Additional Health Concerns Assessment Noted Time PHQ-9 Depression Total Score: 0 04/07/20 20 3:34 PM CDT documented as of this encounter Care Teams Scrub Woman Relationship Specialty Start Date End Date Oswaldo Serrano MD #[address] [address] PCP - General Family Medicine 05/19/17 Angel Crowe DPM #[address] [address] Consulting Physician Podiatry 06/16/17 Mora Fritz Behavioral Health Navigator 06/15/18 documented as of this encounter
--- OUTSIDE RECORDS SUMMARY | 2024-10-07 00:30 | XMS_ITS | Encounter Summary ---
Author Organization [facility] Care Team Providers Care Complex Commercial Litigation Paralegal Name Role Phone Oswaldo Serrano MD Primary Care Provider [phone] Angel Crowe DPM Unavailable [phone] Mora Fritz Unavailable Unavailable Encounter Details Date Type Department Care Team (Latest Contact Info) Description 06/09/2020 Travel Social History Tobacco Use Types Packs/Day [...] have Coronavirus / COVID-19? No / Unsure 06/09/2020 4:08 PM CDT documented as of this encounter Plan of Treatment Upcoming Encounters Date Type Department Care Team (Late st Contact Info) Description 10/08/2024 2:15 PM POLO COACH Office Visit [facility] UROLOGY #2 [place] [phone] Orlin Urbina CONSERVATION WORKER, ELECTRONIC WARFARE OPERATOR #2 [place] [address] 10/18/2024 2:15 PM POLO COACH Appointment [facility] Mammography 1 [place] [address] Oswaldo Serrano MD #[address] [address] Discharge Disposition: Discharged to home or Selfcare 11/29/2024 2:30 PM POLO COACH Office Visit [facility] - Family Medicine - [place] #2 [place] [address] Oswaldo Serrano MD #[address] [address] 11/30/2024 3:00 PM POLO COACH Office Visit [facility] - Endocrinology - [place] #2 [place] [address] Ok Jorge MD #[address] [address] documented as of this encounter Visit Diagnoses Not on filedocumented in this encounter Additional Health Concerns Assessment Noted Time PHQ-9 Depression Total Score: 5 06/09/20 20 4:22 PM CDT documented as of this encounter Care Teams Complex Commercial Litigation Paralegal Relationship Specialty Start Date End Date Oswaldo Serrano MD #[address] [address] PCP - General Family Medicine 05/19/17 Angel Crowe DPM #[address] [address] Consulting Physician Podiatry 06/16/17 Mora Fritz Behavioral Health Navigator 06/15/18 documented as of this encounter
--- OUTSIDE RECORDS SUMMARY | 2024-10-07 00:30 | XMS_ITS | Encounter Summary ---
Author Organization [facility] Address [address] [place] [address] Phone Care Team Providers Care Hydrometer Calibrator Name Role Phone Oswaldo Serrano MD Primary Care Provider Angel Crowe DPM Unavailable Mora Fritz Unavailable Unavailable Reason for Visit * Reason Comments Diabetes Mellitus Follow up Encounter Details Date Type Department Care Team (Late st Contact Info) Description 03/18/2020 1:45 PM CDT Telemedicine [facility] - Endocrinology - [place] #2 [place] [address] Ok Jorge MD #[address] [address] Type 2 diabetes mellitus with diabetic polyneuropathy, without long-term current use of insulin (<HCC>) (Primary Dx); Class 3 severe obesity due to excess calories with serious comorbidity and body mass index (BMI) of 40.0 to 44.9 in adult ([facility]) Social History Tobacco Use Types Packs/Day Years [...] * Patient Instructions* Ok Jorge MD - 03/18/2020 1:45 PM CDT Please take Lantus 12 units in the evening Please take Humalog 12-6-12 units before each meal Please use correctional factor insulin before each meal as directed Please monitor blood sugar before each meal and at bedtime Contact Endocrinology Clinic for low blood sugar events Follow up visit in 3 month ?? RULE OF 15: ??If you have [...] 400 ??+10 UNITS > 400 ??+11 UNITS documented in this encounter Progress Notes * Ok Jorge MD - 03/18/2020 1:45 PM CDT CC: Hyperglycemia Loretta Penn is a 59-year-old female who has type 2 diabetes mellitus. 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 Other pertinent health history includes hypertension, dyslipidemia, and obesity. The patient was initially diagnosed with diabetes >10 yearsago. Currently, Ms. Penn takes Lantus 16 units in the morning, Humalog 10 units with breakfast, 50units with lunch, and 10 units with supper for management of hyperglycemia. The patient reports occasional, mild hypoglycemic events with intact symptoms of hypoglycemia awareness. Most episodes occur overnight. The patient denied severe low blood sugar events requiring third democrat intervention. Her sister reported that morning blood sugars have been running msotly between 100 and 200 mg/dL with blood sugars checked at other times of the day in the range of 60 to 260 mg/ dL. Hemoglobin A1c obtained in December 2019 was 9.2%. Diabetes related complication surveillance 1. No history of diabetic retinopathy - the last dilated eye exam was in 2017 2. (+) symptoms of peripheral sensory neuropathy 3. Urine microalbumin/creatinine ratio - <30 in Oct 2018 4. LDL - 65 mg/dL in May 2017 5. No history of macrovascular disease Review of Systems Constitutional: Negative for activity [...] mellitus (HCC) ??? Hepatitis C ??? Hypertension Past Surgical History: Procedure Laterality Date ??? [...] hours as needed for Itchingor Sleep. ??? escitalopram (LEXAPRO) 10 MG Tablet TAKE 1 TABLET BY MOUTH DAILY. 90 Tab 3 ??? furosemide (LASIX) 40 MG Tablet TK 1 T PO BID 2 ??? Glucose Blood (TRUE METRIX BLOOD GLUCOSE TEST) Strip Test four times daily 400 Strip 3 ??? Glucose Blood Strip Test blood [...] (DITROPAN) 5 MG Tablet TAKE ONE TABLET DAILY 90 Tab 3 ??? potassium chloride CR (KLORCON) 10 MEQ Tablet Controlled Release ??? rivaroxaban (XARELTO) 20 MG Tablet Take 20 mg by mouth daily (with dinner). Take with food. ??? STOOL SOFTENER LAXATIVE 100 MG Capsule TAKE ONE CAPSULE TWICE DAILY (Patient not taking: Reported on 12/14/2019) 180 Cap 2 No current facility-administered medications on file prior to visit. Objective: Physical Exam Unable to obtain DIAGNOSTIC DATA: Lab Results Component Value Date HGBA1C 9.2 (A) 12/14/2019 HGBA1C 7.8 (A) 01/15/2019 HGBA1C 6.7 (A) 10/17/2018 Lab Results Component Value Date HEMATOCRIT 42.6 12/14/2019 Lab Results Component Value Date CREATININE 0.83 12/14/2019 GFRNA >60 12/14/2019 CALCIUM 9.9 12/14/2019 SGPTALT 17 12/14/2019 Lab Results Component Value Date SODIUM 137 12/14/2019 POTASSIUM 4.2 12/14/2019 CHLORIDE 98 (L) 12/14/2019 CO2VEN 26 12/14/2019 Lab Results Component Value Date CHOLESTEROL 179 12/14/2019 TRIGLYCRIDES 221 (H) 12/14/2019 HDLCHOLESTE 44.8 12/14/2019 LDL 90 12/14/2019 Lab Results Component Value Date MACRRAND <=13 12/14/2019 Lab Results Component Value Date TSH 2.360 12/14/2019 Assessment and Plan Loretta Penn is a middle-aged woman with type 2 diabetes mellitus whose glycemic control was suboptimal based on review of her capillary blood glucose report. Low blood sugar events overnightsuggest that current basal insulin coverage seems excessive. Treatment consideration and hypoglycemic precaution were discussed with her and her sister at some length. She will reduce Lantus to 12 units in the morning and take Humalog 12-6-12 units before each meal for management of hyperglycemia. The patient will return for office reevaluation in 3 months. PLAN: 1. Decrease Lantus to 12 units in the morning 2. Take Humalog 12-6-12 units before each meal 3. Correctional factor insulin dosed at 1:25 if CBG is > 150 mg/dl 4. Monitor blood sugar QAC/QHS 5. Send CBG log for review 6. Contact Endocrinology Clinic for low blood sugar events 7. RTC in 3 months Obesity PLAN: 1. Low carb and calorie diet 2. Avoid snack and beverage between meal and at bedtime The patient was assessed via telephone for a duration of 12 minutes, regarding hyperglycemia and precaution for Covid-19. The patient verbally consented for this service to be performed and billed. Ok Jorge MD 03/18/2020 documented in this encounter Plan of Treatment Upcoming Encounters Date Type Department Care Team (Late st Contact Info) Description 10/08/2024 2:15 PM WORKFORCE MANAGER Office Visit [facility] #2 [place] [address] Orlin Urbina, DAIRY FARM WORKER, MIXER TENDER #2 [place] [address] 10/18/2024 2:15 PM WORKFORCE MANAGER [facility] 1 [place] [address] Oswaldo Serrano MD #[address] [address] Discharge Disposition: Discharged to home or Selfcare 11/29/2024 2:30 PM WORKFORCE MANAGER Office Visit [facility] - Family Medicine [facility] #2 [place] [address] Oswaldo Serrano MD #[address] [address] 11/30/2024 3:00 PM WORKFORCE MANAGER Office Visit [facility] - Endocrinology - [place] #2 [place] [address] Ok Jorge MD #2 [facility] [address] [place] [address] documented as of this encounter Visit Diagnoses [...] Total Score: 1 12/14/19 20 2:55 PM WORKFORCE MANAGER documented as of this encounter Care Teams Hydrometer Calibrator Relationship Specialty Start Date End Date Oswaldo Srerano MD #2 [facility] [address] [place] [address] PCP - General Family Medicine 05/19/17 Angel Crowe DPM #2 [facility] [address] [place] [address] Consulting Physician Podiatry 06/16/17 Mora Fritz Behavioral Health Navigator 06/15/18 documented as of this encounter
--- OUTSIDE RECORDS SUMMARY | 2024-10-07 00:30 | XMS_ITS | Encounter Summary ---
Author Organization [facility] Address [address] [place] [address] Phone Care Team Providers Care Ground Operations Superintendent Name Role Phone Oswaldo Serrano MD Primary Care Provider Angel Crowe DPM Unavailable [phone] Mora Fritz Unavailable Unavailable Reason for Visit * Reason Comments Diabetes Mellitus 2 month f/u Encounter Details Date Type Department Care Team (Late st Contact Info) Description 06/09/2020 4:15 PM CDT Office Visit [facility] - [facility] #2 [place] [address] Oswaldo Serrano MD #[address] [address] Tick bite, initial encounter (Primary Dx); Vitamin D deficiency Discharge Disposition: Discharged to [...] Sign Reading Time Taken Comments Blood Pressure 120/68 06/09/2020 4:18 PM CDT Pulse 88 06/09/2020 4:18 PM CDT Temperature 36.1 ??C (97 ??F) 06/09/2020 4:18 PM CDT Respiratory Rate 18 06/09/2020 4:18 PM CDT Oxygen Saturation 98% 06/09/2020 4:18 PM CDT Inhaled Oxygen Concentration - - Weight 124.2 kg (273 lb 14.4 oz) 06/09/2020 4:18 PM CDT Height 167.6 cm (5' 6 ) 06/09/2020 4:18 PM CDT Body Mass Index 44.21 06/09/2020 4:18 PM CDT documented in this encounter Patient Instructions * Patient Instructions* Oswaldo Serrano MD - 06/09/2020 4:15 PM CDT 1. Do Vit. D & cholesterol labs in mid-July (fasting 10 hours). 2. See all other doctors as scheduled. 3. Please complete survey if you receive one. 4. Do labs soon (nonfasting). documented in this encounter Progress Notes * Rama Isabel G - 06/09/2020 4:15 PM CDT Loretta Penn, 59 y.o., female is here for Diabetes Mellitus (2 month f/u) Medication Refills: Patient reports/denies need [...] Yes Nica Muniz MD ergocalciferol (VITAMIN D) 80909 UNIT Capsule Take 1 Cap by mouth once a week. 04/08/20 Yes Connor Yuan APN, YUDI escitalopram (LEXAPRO) 10 MG Tablet TAKE 1 TABLET BY MOUTH DAILY. 10/01/19 Yes Oswaldo Serrano MD fluticasone (FLONASE) 50 MCG/ACT Suspension 2 Sprays by Nasal route daily. Use in each nostril as directed. 04/07/20 Yes Connor Yuan APN, YUDI furosemide (LASIX) 40 MG Tablet TK 1 T PO BID 04/29/17 Yes iNca Muniz MD Glucose Blood Strip Test blood [...] insulin dependent 12/19/19 Yes Ok Jorge MD LANTUS 100 UNIT/ML Solution [...] (KLORCON) 10 MEQ Tablet Controlled Release 08/18/19 Nica Muniz MD potassium chloride SA (KLORCON [...] ??? Pneumococcal Immunization (0-64 years) (1 of - PPSV23) 12/20/1967 ??? Zoster Immunization (1 of 2) 12/20/2011 ??? Colorectal Cancer Screening 12/20/2011 ??? Dilated Eye Exam 07/18/2019 ??? Pap Smear 06/06/2020 Orders Pended: no The following BPA's have been addressed with the patient today: Pap and Depression * Oswaldo Serrano MD - 06/09/2020 4:15 PM CDT CHIEF COMPLAINT: Tick bite. SUBJECTIVE: Patient is here today with her relatives thinking that she had a tick bite on her neck. She developed joint pain. She never did see the tick or remove the tick, but one of her relatives supposedly was bitten by a tick also. She denies any rash. Patient has diminished mental ability. I have reviewed all the systems. They are negative except as mentioned in HPI. OBJECTIVE: Vital Signs: Blood pressure 120/68, pulse 88, temperature 97, weight 273. General: Patient is talkative, cooperative, and appropriately dressed. Chest: Clear to auscultation bilaterally, no wheezing. Heart: S1, S2 no murmurs. Neck: No carotid bruits auscultated. Skin: I do not see any rash on her scalp or any evidence of a bite wound or scab. ASSESSMENT/PLAN: 1. Tick bite. We will check a Lyme titer on her. 2. Vitamin D deficiency. I will check a level in July, along with her lipid panel. 3. This patient is to follow up with me in 3 months. IJN: [id number] documented in this encounter Plan of Treatment Upcoming Encounters Date Type Department Care Team (Late st Contact Info) Description 10/08/2024 2:15 PM HEBREW CANTOR Office Visit [facility] #2 [place] [address] Orlin Urbina SECURITY CONTROL ROOM OFFICER, FINANCIAL QUANTITATIVE ANALYST #2 [place] [address] 10/18/2024 2:15 PM HEBREW CANTOR [facility]ment [facility] [address] [place] [address] Oswaldo Serrano MD #2 [facility] [address] [place] [address] Discharge Disposition: Discharged to home or Selfcare 11/29/2024 2:30 PM HEBREW CANTOR Office Visit [facility] - [facility] #2 [facility] [address] Oswaldo Serrano MD #[address] [address] 11/30/2024 3:00 PM HEBREW CANTOR Office Visit [facility] - Endocrinology - [place] #2 [place] [address] Ok Jorge MD #[address] [place] [address] documented as of this encounter Results * LYME ANTIBODY (BORRELIA) SCREEN (06/09/2020 5:09 PM CDT) LYME ANTIBODY 0.30 <0.91 Immune Status Ratio 06/11/2020 2:55 PM CDT [facility] Blood Venipuncture / Unknown 06/09/2020 5:09 PM CDT 06/09/2020 5:15 PM CDT Narrative [facility] - 06/11/2020 2:55 PM CDT <=0.90 ? Negative for B. burgdorferi IgG/IgM antibodies by Barb. ??Result does not exclude B. burgdorferi infection. ??An additional specimen should be tested within 2-4 weeks if early infection suspected. 0.91-1.09 ??Equivocal for B. burgdorferi IgG/IgM antibodies by Barb. ??An additional specimen should be tested within 2-4 weeks if early infection suspected. ??[facility] recommends supplemental Western-Blot testing. >=1.10 ??Positive for B. burgdorferi IgG/IgM antibodies by Barb. ??CDC recommends supplemental Western-Blot testing. Oswaldo Serrano MD IMMUNOLOGY ORDERABLES Final Result [facility] [address] [place] [address], documented in this encounter Visit Diagnoses Diagnosis Tick bite, initial encounter- Primary Vitamin D deficiency Unspecified vitamin D deficiency documented in this encounter Additional Health Concerns Assessment Noted Time PHQ-9 Depression Total Score: 5 06/09/20 20 4:22 PM CDT documented as of this encounter Care Teams Ground Operations Superintendent Relationship Specialty Start Date End Date Oswaldo Serrano MD #[address] [address] PCP - General Family Medicine 05/19/17 Angel Crowe DPM #[address] [address] Consulting Physician Podiatry 06/16/17 Mora Fritz MS Behavioral Health Navigator 06/15/18 documented as of this encounter
--- OUTSIDE RECORDS SUMMARY | 2024-10-07 00:30 | XMS_ITS | Encounter Summary ---
Author Organization [facility] Address [address] [place] [address] Phone Care Team Providers Care Watch Dial Maker Name Role Phone Oswaldo Serrano MD Primary Care Provider Angel Crowe DPM Unavailable Mora Fritz Unavailable Unavailable Reason for Visit * Reason Comments Medication Refill Encounter Details Date Type Department Care Team (Late st Contact Info) Description 02/06/2020 Refill [facility] #2 [place] [address] Oswaldo Serrano MD #[address] [address] Medication Refill Social History Tobacco Use Types [...] Miscellaneous Notes * Telephone Encounter - Amina Nicolas, RN - 02/06/2020 12:37 PM CDT Medication refused due to duplicate request. Reviewed to ensure medication was already refilled at same pharmacy currently requesting refill. documented in this encounter Plan of Treatment Upcoming Encounters Date Type Department Care Team (Late st Contact Info) Description 10/08/2024 2:15 PM MATERIAL CONTROLLER Office Visit [facility] #2 [place] [address] Orlin Urbina, QUARRYMAN, TELECOMMUNICATIONS PROFESSIONAL #2 [place] [address] 10/18/2024 2:15 PM MATERIAL CONTROLLER [facility] [address] [place] [phone] Oswaldo Serrano MD #[address] [address] Discharge Disposition: Discharged to home or Selfcare 11/29/2024 2:30 PM MATERIAL CONTROLLER Office Visit [facility] - [place] #2 [place] [address] Oswaldo Serrano MD #[address] [address] 11/30/2024 3:00 PM MATERIAL CONTROLLER Office Visit [facility] - End[facility]ology - [place] #2 [place] [address] Ok Jorge MD #2 [facility] [address] [place] [address] documented as of this encounter Visit Diagnoses Not on filedocumented in this encounter Additional Health Concerns Assessment Noted Time PHQ-9 Depression Total Score: 1 12/14/19 20 2:55 PM MATERIAL CONTROLLER documented as of this encounter Care Teams Watch Dial Maker Relationship Specialty Start Date End Date Oswaldo Serrano MD #2 [facility] [address] [place] [address] PCP - General Family Medicine 05/19/17 Angel Crowe DPM #2 [facility] [address] [place] [address] Consulting Physician Podiatry 06/16/17 Mora Fritz Behavioral Health Navigator 06/15/18 documented as of this encounter
--- OUTSIDE RECORDS SUMMARY | 2024-10-07 00:30 | XMS_ITS | Encounter Summary ---
Author Organization [facility] Address [address] [place] [address] Phone Care Team Providers Care Network Support Engineer Name Role Phone Oswaldo Serrano MD Primary Care Provider [phone] Angel Crowe DPM Unavailable [phone] Mora Fritz Unavailable Unavailable Encounter Details Date Type Department Care Team (Late st Contact Info) Description 06/14/2020 Telephone [facility] #2 [place] [phone] Oswaldo Serrano MD #[address] [address] Social History Tobacco Use Types Packs/Day Years [...] Telephone Encounter - Oswaldo Serrano MD - 06/14/2020 10:36 PM CDT DONE. documented in this encounter Plan of Treatment Upcoming Encounters Date Type Department Care Team (Late st Contact Info) Description 10/08/2024 2:15 PM LEGAL RECORDS CLERK Office Visit [facility] #2 [place] [address] Orlin Urbina, REFINING SUPERVISOR, PHERESIS SPECIALIST #2 [place] [address] 10/18/2024 2:15 PM LEGAL RECORDS CLERK Appointment [facility] 1 [place] [address] Oswaldo Serrano MD #[address] [address] Discharge Disposition: Discharged to home or Selfcare 11/29/2024 2:30 PM LEGAL RECORDS CLERK Office Visit [facility] #2 [place] [address] Oswaldo Serrano MD #[address] [address] 11/30/2024 3:00 PM LEGAL RECORDS CLERK Office Visit [facility] - [place] [address] [place] [address] Ok Jorge MD #[address] [address] [place] [address] documented as of this encounter Results * (ABNORMAL) HEPATIC FUNCTION PANEL (09/11/2020 1:26 PM LEGAL RECORDS CLERK) T BILI 0.5 <=1.2 mg/dL 09/11/2020 3:07 PM LEGAL RECORDS CLERK [facility] BILIRUBIN,DIRECT <=0.2 <=0.3 mg/dL 09/11/2020 3:07 PM LEGAL RECORDS CLERK [facility] ALKALINE PHOSPHATASE 143(H) 35 - 105 U/L 09/11/2020 3:07 PM LEGAL RECORDS CLERK [facility] SGOT (AST) 19 <=32 U/L 09/11/2020 3:07 PM LEGAL RECORDS CLERK [facility] SGPT (ALT) 16 <=33 U/L 09/11/2020 3:07 PM LEGAL RECORDS CLERK [facility] TOTAL PROTEIN 7.1 6.0 - 8.3 g/dL 09/11/2020 3:07 PM LEGAL RECORDS CLERK [facility] ALBUMIN 3.8 3.5 - 5.2 g/dL 09/11/2020 3:07 PM LEGAL RECORDS CLERK [facility] Comment: The colormetric methods used for the determination of Albumin may lead to falsely elevated test results in patients suffering from renal failure or insufficiency due to interference with other proteins. Blood Venipuncture / Unknown 09/11/2020 1:26 PM LEGAL RECORDS CLERK 09/11/2020 2:32 PM LEGAL RECORDS CLERK Oswaldo Serrano MD CHEMISTRY ORDERABLES Final Result [facility] #[address] [place] [address] documented in this encounter Visit Diagnoses Diagnosis Elevated liver enzymes- Primary Nonspecific elevation of levels of transaminase or lactic acid dehydrogenase (LDH) documented in this encounter Additional Health Concerns Assessment Noted Time PHQ-9 Depression Total Score: 5 06/09/20 20 4:22 PM CDT documented as of this encounter Care Teams Network Support Engineer Relationship Specialty Start Date End Date Oswaldo Serrano MD #[address] [address] PCP - General Family Medicine 05/19/17 Angel Crowe DPM #[address] [address] Consulting Physician Podiatry 06/16/17 Mora Fritz Behavioral Health Navigator 06/15/18 documented as of this encounter
--- OUTSIDE RECORDS SUMMARY | 2024-10-07 00:30 | XMS_ITS | Encounter Summary ---
Author Organization [facility] Address [address] [place] [address] Phone Care Team Providers Care Supervisor Ticket Sales Name Role Phone Oswaldo Serrano MD Primary Care Provider [phone] Angel Crowe DPM Unavailable [phone] Mora Fritz Unavailable Unavailable Reason for Referral * Consult, Test & Initiate Treatment (Routine) - Canceled Specialty Diagnoses / Procedures Referred By Praful ferro Referred To Contact Diagnoses Chronic sinus complaints Connor Yuan, FOOD PORTER, LEARNING CENTER COORDINATOR #[address] [address] Phone: tel: fax: Carl Matthews MD Phone: tel: fax: Referral ID Status Reason Start Date Expiration Date V isits Requested Visits Authorized [id number] Canceled 04/07/2020 1 1 Scheduling Instructions Loretta is being referred to Dr. Matthews or other specialist in patient's insurance network for chronic sinus complaints. See below for Loretta's current medications, allergies and problem list. Please contact patient for scheduling questions or concerns. CURRENT MEDS: Current Outpatient Medications: ASPIR-LOW 81 MG Tablet Delayed Response, , Disp: , Rfl: Blood Glucose Monitoring Suppl Device, Test blood glucose 4 times daily. E11.9, insulin dependent, Disp: 1 Each, Rfl: 0 carvedilol (COREG) 25 MG Tablet, 25 mg 2 times daily., Disp: , Rfl: dilTIAZem (CARDIZEM) 30 MG Tablet, TK 1 T PO TID, Disp: , Rfl: 0 diphenhydrAMINE (BENADRYL) 25 MG Tablet, Take 25 mg by mouth every 6 hours as needed for Itching or Sleep., Disp: , Rfl: escitalopram (LEXAPRO) 10 MG Tablet, TAKE 1 TABLET BY MOUTH DAILY., Disp: 90 Tab, Rfl: 3 furosemide (LASIX) 40 MG Tablet, TK 1 T PO BID, Disp: , Rfl: 2 Glucose Blood Strip, Test blood glucose 4x daily. E11.9, insulin dependent, Disp: 400 Strip, Rfl: 3 insulin lispro (HUMALOG) 100 UNIT/ML Solution, INJECT 10 UNITS AT BREKFAST, 5 UNITS AT LUNCH AND 10 UNITS AT DINNER --- CORRECTIONAL FACTOR INSULIN OF 1:25 UP TO 40 UNITS PER DAY, Disp: 20 mL, Rfl: 2 Insulin Pen Needle (PEN NEEDLES 31GX5/16 ) 31G X 8 MM Misc, Three times a day, Disp: 300 Each, Rfl: 3 Insulin Syringe-Needle U-100 (TRUEPLUS INSULIN SYRINGE) 31G X 5/16 0.5 ML Misc, USE 4 TIMES DAILY, Disp: 400 Each, Rfl: 3 Lancets Misc, Test four times daily. E11.9, insulin dependent, Disp: 400 Lancet, Rfl: 3 LANTUS 100 UNIT/ML Solution, INJECT 16 UNITS EVERY MORNING., Disp: 10 mL, Rfl: 2 levothyroxine (SYNTHROID) 50 MCG Tablet, TAKE ONE TABLET DAILY IN THE MORNING ON AN EMPTY STOMACH, Disp: 90 Tab, Rfl: 3 lisinopril (PRINIVIL, ZESTRIL) 5 MG Tablet, TAKE 1 TABLET BY MOUTH DAILY., Disp: 90 Tab, Rfl: 2 nortriptyline (PAMELOR) 10 MG Capsule, TAKE 1 CAPSULE DAILY, Disp: 90 Cap, Rfl: 3 omeprazole (PRILOSEC) 20 MG CAPSULE DELAYED RELEASE, Take 1 Cap by mouth daily., Disp: 90 Cap, Rfl: 3 oxybutynin (DITROPAN) 5 MG Tablet, TAKE ONE TABLET DAILY, Disp: 90 Tab, Rfl: 3 potassium chloride CR (KLORCON) 10 MEQ Tablet Controlled Release, , Disp: , Rfl: rivaroxaban (XARELTO) 20 MG Tablet, Take 20 mg by mouth daily (with dinner). Take with food., Disp: , Rfl: STOOL SOFTENER LAXATIVE 100 MG Capsule, TAKE ONE CAPSULE TWICE DAILY (Patient not taking: Reported on 12/14/2019), Disp: 180 Cap, Rfl: 2 No current facility-administered medications for this visit. ALLERGIES: -- Sulfa Antibiotics -- Unknown and Hives -- Sulfamethoxazole-Trimethoprim -- Hives PROBLEM LIST: Patient Active Problem List: Chronic congestive heart failure (HCC) Cardiomegaly TBI (traumatic brain injury) (HCC) History of atrial fibrillation Leg wound, right Obesity, Class III, BMI 40-49.9 (morbid obesity) (HCC) Hepatitis C virus infection Medically complex patient Depression Protuberant abdomen Elevated hemoglobin A1c Type 2 diabetes mellitus treated with insulin (HCC) Iron deficiency anemia Hypothyroidism Vitamin D deficiency Hypokalemia Diabetic polyneuropathy associated with type 2 diabetes mellitus (HCC) Diabetic vasculopathy (HCC) Dermatophytosis of nail Anemia of infection and chronic disease Iron deficiency Debilitated patient Presence of cardiac defibrillator Elevated LFTs Urinary frequency Class 3 severe obesity due to excess calories with serious comorbidity and body mass index (BMI) of 40.0 to 44.9 in adult (HCC) Hyperlipidemia Reason for Visit * Reason Comments ED Follow-up hemoptysis Encounter Details Date Type Department Care Team (Late st Contact Info) Description 04/07/2020 3:30 PM CDT Office Visit [facility] Family [facility] #2 [place] [address] Connor Yuan, FOOD PORTER, LEARNING CENTER COORDINATOR #[address] [address] Hemoptysis (Primary Dx); Chronic sinus complaints; Diabetic polyneuropathy associated with type 2 diabetes mellitus (HCC); Vitamin D deficiency Discharge Disposition: Discharged [...] Sign Reading Time Taken Comments Blood Pressure 130/70 04/07/2020 3:31 PM CDT Pulse 76 04/07/2020 3:31 PM CDT Temperature 36.2 ??C (97.2 ??F) 04/07/2020 3:31 PM CD T Respiratory Rate 20 04/07/2020 3:31 PM CDT Oxygen Saturation 97% 04/07/2020 3:31 PM CDT Inhaled Oxygen Concentration - - Weight 126.4 kg (278 lb 9.6 oz) 04/07/2020 3:31 PM CDT Height 167.6 cm (5' 6 ) 04/07/2020 3:31 PM CDT Body Mass Index 44.97 04/07/2020 3:31 PM CDT documented in this encounter Progress Notes * Rama Isabel - 04/07/2020 3:30 PM CDT Loretta Penn, 59 y.o., female is here for ED Follow-up (hemoptysis) Medication Refills: Patient reports/denies need for medication [...] or Sleep. 05/24/17 Yes Nica Muniz MD escitalopram (LEXAPRO) 10 MG Tablet TAKE 1 TABLET BY MOUTH DAILY. 10/01/19 Yes Oswaldo Serrano MD furosemide (LASIX) 40 MG Tablet TK 1 [...] 1 Cap by mouth daily. 02/07/20 Yes Oswlado Serrano MD oxybutynin (DITROPAN) 5 MG Tablet TAKE ONE TABLET DAILY 10/15/19 Yes Oswaldo Serrano MD potassium chloride CR (KLORCON) 10 MEQ Tablet Controlled Release 08/18/19 Yes ProviderNica MD rivaroxaban (XARELTO) 20 MG Tablet Take 20 mg by mouth daily (with dinner). Take with food. Yes ProviderNica MD STOOL SOFTENER LAXATIVE 100 MG Capsule TAKE ONE CAPSULE TWICE DAILY Patient not taking: Reported on 12/14/2019 11/26/19 Oswaldo Serrano MD There are no discontinued medications. I [...] (1 of 1 - PPSV23) 12/20/1967 ??? Colonoscopy 12/20/2011 ??? Zoster Immunization (1 of 2) 12/20/2011 ??? Dilated Eye Exam 07/18/2019 ??? Pap Smear 06/06/2020 Orders Pended: no The following BPA's have been addressed with the patient today: Pneumonia, Colonoscopy, Pap and Depression * Connor Yuan APN, LEARNING CENTER COORDINATOR - 04/07/2020 3:30 PM CDT Subjective: CC: ER F/U for hemoptysis Loretta Penn is a 59-year-old female who presents to the office today for ER follow-up for hemoptysis. Nine days ago apparently had a very small amount of hemoptysis. Takes Xarelto for atrial fibrillation. Her family became concerned so they took her to [facility] Emergency room for further evaluation and treatment. Testing was unremarkable. Patient is a very poor historian and reports for the last year has had very intermittent shortness of breath and chest pain which she has discussed with the procedures tech. Also reports chronic sinus congestion and scratchy throat for the last year. Previously saw ENT for that in [facility] but no records availab le. She denies any exposure to ill persons. Patient would also like a [id number] encounter for diabetic shoes. Denies any other acute complaints this time. The history is provided by the patient, a relative and medical records. The history is limited by the condition of the patient. No interventional neuroradiologist was used. ED Follow-up Associated symptoms include chest pain, congestion and a sore throat. Pertinent negatives include no abdominal pain, arthralgias, chills, coughing, fatigue, fever, headaches, myalgias, nausea, numbness, rash or vomiting. Review of Systems Constitutional: Negative for chills, fatigue and fever. HENT: Positive for congestion, sinus pressure and sore throat. Negative for ear discharge, ear pain, postnasal drip, sinus pain and trouble swallowing. Eyes: Negative for photophobia, pain and discharge. Respiratory: Positive for shortness of breath. Negative for cough, chest tightness and wheezing. Hemoptysis Cardiovascular: Positive for chest pain. Negative for palpitations. Gastrointestinal: Negative for abdominal pain, constipation, [...] Itching or Sleep., Disp: , Rfl: ??? escitalopram (LEXAPRO) 10 [...] (DITROPAN) 5 MG Tablet, TAKE ONE TABLET DAILY, Disp: 90 Tab, Rfl: 3 ??? potassium chloride CR (KLORCON) 10 MEQ Tablet Controlled Release, , Disp: , Rfl: ??? rivaroxaban (XARELTO) 20 MG Tablet, Take 20 mg by mouth daily (with dinner). Take with food., Disp: , Rfl: ??? STOOL SOFTENER LAXATIVE 100 MG Capsule, TAKE ONE CAPSULE TWICE DAILY (Patient not taking: Reported on 12/14/2019), Disp: 180 Cap, Rfl: 2 Past Medical History Past Medical History Positives [...] and Rhythm: Normal rate and regular rhythm. Pulses: Dorsalis pedis pulses are 2+ on the right side and 2+ on the left side. Heart sounds: Normal heart sounds. No murmur. No friction rub. No gallop. Pulmonary: Effort: Pulmonary effort is normal. No respiratory distress. Breath sounds: Normal breath sounds. Abdominal: General: Bowel sounds are normal. Palpations: Abdomen is soft. Tenderness: There is no abdominal tenderness. Musculoskeletal: Normal range of motion. General: No deformity. Feet: Right foot: Skin integrity: Callus present. Left foot: Skin integrity: Callus present. Lymphadenopathy: Cervical: No cervical adenopathy. Skin: General: Skin is warm and dry. Coloration: Skin is not pale. Findings: No rash. Neurological: Mental Status: She is alert and oriented to person, place, and time. Sensory: Sensory deficit (Bilateral foot sensory deficit) present. Psychiatric: Behavior: Behavior is slowed. Thought Content: Thought content normal. Judgment: Judgment normal. Vital Signs Vitals: 04/07/20 1531 BP: 130/70 Pulse: 76 Resp: 20 Temp: 97.2 ??F (36.2 ??C) TempSrc: Temporal SpO2: 97% Weight: 278 lb 9.6 oz (126.4 kg) Height: 5' 6 (1.676 m) Lab Results Admission on 03/29/2020, Discharged on 03/30/2020 Component Date Value Ref Range Status ??? PTT 03/29/2020 40* 24 - 36 sec Final ??? SODIUM 03/29/2020 139 136 - 144 mmol/L Final ??? POTASSIUM 03/29/2020 4.5 3.5 - 5.1 mmol/L Final ??? CHLORIDE 03/29/2020 98* 100 - 110 mmol/L Final ??? CO2, VENOUS 03/29/2020 27 22 - 32 mmol/L Final ??? ANION GAP 03/29/2020 18.5 8.0 - 20.0 mmol/L Final ??? GLUCOSE 03/29/2020 116* 70 - 99 mg/dL Final ??? BUN 03/29/2020 28* 6 - 20 mg/dL Final ??? CREATININE, BLOOD 03/29/2020 1.17* 0.60 - 1.10 mg/dL Final ??? BUN/CREATININE RATIO 03/29/2020 24* 12 - 20 ratio Final ??? TOTAL PROTEIN 03/29/2020 7.5 6.0 - 8.3 g/dL Final ??? ALBUMIN 03/29/2020 4.2 3.5 - 5.2 g/dL Final The colormetric methods used for the determination of Albumin may lead to falsely elevated test results in patients suffering from renal failure or insufficiency due to interference with other proteins. ??? A/G RATIO 03/29/2020 1.3 1.0 - 2.0 Final ??? CALCIUM 03/29/2020 9.6 8.9 - 10.3 mg/dL Final ? ? T BILI 03/29/2020 <=0.2 <=1.2 mg/dL Final ? ? SGOT (AST) 03/29/2020 21 <=32 U/L Final ? ? SGPT (ALT) 03/29/2020 18 <=33 U/L Final ??? ALKALINE PHOSPHATASE 03/29/2020 155* 35 - 105 U/L Final ? ? GFR, EST. NONAFRICAN 03/29/2020 48* >=60 Final ? ? GFR, EST. 03/29/2020 58* >=60 Final Creatinine Clearance is the preferred criteria for selecting drug dose adjustments in renally impaired patients. The GFR is provided as additional pertinent clinical information. GFR is reported in mL/min/1.73 sq m. ??? QRS Duration 03/29/2020 140 ms Final ??? Q-T Duration 03/29/2020 430 ms Final ??? QTC CALCULATION 03/29/2020 484 ms Final ??? R [place] 03/29/2020 10 degrees Final ??? T [place] 03/29/2020 81 degrees Final ? ? TROPONIN I 03/29/2020 <0.300 <=0.300 ng/mL Final ??? MAGNESIUM 03/29/2020 2.2 1.8 - 2.5 mg/dL Final ??? NT PROBNP 03/29/2020 1,157.0* 5.0 - 227.0 pg/mL Final NT-proBNP values < 300 pg/mL have a 99% negative predictive value for excluding acute congestiveheart failure (CHF) in all age groups. In the absence of renal failure, CHF is suggested in adults < 50 years of age with a NT-pro BNP > 450 pg/mL; in adults 50-75 years of age with a NT-proBNP> 900 pg/mL; and in adults > 75 years of age with a NT-proBNP > 1800 pg/mL. For patients with an e-GFR < 60 a NT-proBNP > 1200 pg/mL yields a diagnostic sensitivity and specificity of 89% and 72% for acute CHF. ([facility] data) ??? POC STREP SCRN 03/29/2020 Presumptive negative Final ??? POC STREP SCREEN CONTROL 03/29/2020 Rf Manager Pass Final ??? WBC 03/29/2020 7.30 4.00 - 12.00 10(3)/mcL Final ??? RBC 03/29/2020 4.13 3.80 - 5.30 10(6)/mcL Final ??? HEMOGLOBIN (HGB) 03/29/2020 13.5 12.0 - 15.8 g/dL Final ??? HEMATOCRIT (HCT) 03/29/2020 40.6 36.0 - 47.0 % Final ??? MCV 03/29/2020 98.3* 82.0 - 96.0 fL Final ??? MCH 03/29/2020 32.7 26.0 - 34.0 pg Final ??? MCHC 03/29/2020 33.3 31.0 - 36.0 g/dL Final ??? PLATELET COUNT 03/29/2020 239 140 - 440 10(3)/mcL Final ??? RDW 03/29/2020 12.3 11.8 - 15.5 % Final ??? MPV 03/29/2020 9.7 9.7 - 12.4 fL Final ??? NEUTROPHILS 03/29/2020 57.1 47.0 - 73.0 % Final ??? LYMPHOCYTES 03/29/2020 31.8 18.0 - 42.0 % Final ??? MONOCYTES 03/29/2020 7.4 4.0 - 12.0 % Final ??? EOSINOPHILS 03/29/2020 2.9 0.0 - 5.0 % Final ??? BASOPHILS 03/29/2020 0.8 0.0 - 1.0 % Final ??? ABSOLUTE NEUTROPHILS 03/29/2020 4.17 1.60 - 7.70 10(3)/mcL Final ??? ABSOLUTE LYMPHOCYTES 03/29/2020 2.32 1.30 - 3.20 10(3)/mcL Final ??? ABSOLUTE MONOCYTES 03/29/2020 0.54 0.20 - 1.00 10(3)/mcL Final ??? ABSOLUTE EOSINOPHIL 03/29/2020 0.21 0.00 - 0.40 10(3)/mcL Final ??? ABSOLUTE BASOPHILS 03/29/2020 0.06 0.00 - 0.10 10(3)/mcL Final ??? NRBC PER 100 WBC 03/29/2020 0 Final ??? PROTIME-PATIENT 03/29/2020 27.4* 11.6 - 14.8 sec Final ??? INR 03/29/2020 2.6* 0.9 - 1.2 Final Therapeutic Ranges INR = 2.0-3.0: Venous thromb, atrial fib, pul embolism, tissue heart valve, ami. INR = 2.5-3.5: Mechanical heart valve Critical value for INR is >/= 4.5 ??? CULTURE RESULTS 03/29/2020 NO STREP PYOGENES (GROUP A BETA HEMOLYTIC STREP) ISOLATED AFTER 2 DAYS Corrected Lab Results Component Value Date WBC 7.30 03/29/2020 HEMOGLOBIN 13.5 03/29/2020 HEMATOCRIT 40.6 03/29/2020 PLATELETCNT 239 03/29/2020 CHOLESTEROL 179 12/14/2019 TRIGLYCRIDES 221 (H) 12/14/2019 TRIGLYCRIDES 66 05/26/2017 HDLCHOLESTE 44.8 12/14/2019 HDLCHOLESTE 25.8 (L) 05/26/2017 LDL 90 12/14/2019 LDL 65 05/26/2017 INR 2.6 (H) 03/29/2020 HGBA1C 9.2 (A) 12/14/2019 HGBA1C 7.8 (A) 01/15/2019 HGBA1C 6.7 (A) 10/17/2018 MACRRAND <=13 12/14/2019 [id number] 377 06/06/2017 Lab Results Component Value Date SODIUM 139 03/29/2020 POTASSIUM 4.5 03/29/2020 CHLORIDE 98 (L) 03/29/2020 CO2VEN 27 03/29/2020 ANIONGAP 18.5 03/29/2020 GLUCOSE 116 (H) 03/29/2020 BUN 28 (H) 03/29/2020 CREATININE 1.17 (H) 03/29/2020 BCRATIO8 24 (H) 03/29/2020 TOTALPROTEIN 7.5 03/29/2020 ALBUMIN 4.2 03/29/2020 AGRATIO 0.9 07/16/2017 CALCIUM 9.6 03/29/2020 TBIL <=0.2 03/29/2020 SGOTAST 21 03/29/2020 SGPTALT 18 03/29/2020 ALKALINEPHO 155 (H) 03/29/2020 GFRNA 48 (L) 03/29/2020 GFRA 58 (L) 03/29/2020 VTMD 23 (L) 09/08/2017 TSH 2.360 12/14/2019 Please see results review for comprehensive lab results. Assessment and Plan See Diagnoses, Orders, Follow-up, and Instructions 1. Hemoptysis 2. Chronic sinus complaints - fluticasone (FLONASE) 50 MCG/ACT Suspension; 2 Sprays by Nasal route daily. Use in each nostril as directed. Dispense: 3 Bottle; Refill: 3 - EXTERNAL ENT REFERRAL; Future 3. Diabetic polyneuropathy associated with type 2 diabetes mellitus (HCC) 4. Vitamin D deficiency - VITAMIN D, 25 HYDROXY TOTAL; Future Will start patient on Flonase in and external ENT referral for her to undergo laryngoscopy. Follow-up in office with PCP in 2 months. I discussed all new medications and potential side effects or risks associated with them. Patient is to contact our office with any concerns. Patient instructions and educational materials were given to the patient. Patient (or patient route service representative) demonstrates verbal understanding of instructions given. [...] referring physician. Documentation for this visit on 04/07/20 was completed using a template. I have seen and examined the patient. Everything documented was personally performed at this visit with the necessary additions, deletions and changes made as appropriate. documented in this encounter Plan of Treatment Upcoming Encounters Date Type Department Care Team (Late Contact Info) Description 10/08/2024 2:15 PM CIVIL ENGINEERING SPECIALIST Office Visit [facility] #2 [place] [address] Orlin Urbina, FOOD PORTER, LEARNING CENTER COORDINATOR #2 [place] [address] 10/18/2024 2:15 PM CIVIL ENGINEERING SPECIALIST Appointment [facility] [place] [address] Oswaldo Serrano MD #[address] [address] Discharge Disposition: Discharged to home or Selfcare 11/29/2024 2:30 PM CIVIL ENGINEERING SPECIALIST Office Visit [facility] #2 [place] [address] Oswaldo Serrano MD #[address] [address] 11/30/2024 3:00 PM CIVIL ENGINEERING SPECIALIST [facility] #2 [place] [address] Ok Jorge MD #[address] [address] Scheduled Referrals Name Type Priority Associated Diagnoses Orde r Schedule EXTERNAL ENT REFERRAL Outpatient Referral Routine Chronic sinus complaints Expected: 08/19/2020, Expires: 02/16/2021 documented as of this encounter Results * (ABNORMAL) VITAMIN D, 25 HYDROXY TOTAL (04/07/2020 4:35 PM CDT) VITAMIN D, 25 HYDROX 27(L) >=30 ng/mL 04/07/2020 5:29 PM CDT [facility] Blood Venipuncture / Unknown 04/07/2020 4:35 PM CDT 04/07/2020 4:38 PM CDT Narrative [facility] - 04/07/2020 5:29 PM CDT Published reference ranges for Vitamin D vary depending on time and place and method of testing, and on patient's age, sex, ethnicity and levels of other measured analytes such as parathormone, calcium and phosphorus. ??The result should be evaluated in conjunction with clinical findings and suspicions. [employer] and Endocrine Clinical Practice Guidelines: Status Vitamin D levels (ng/mL) Deficient <=20 At risk of inadequacy 21-29 Sufficient 30-100 Centers of Disease Control and Prevention Guidelines: Status Vitamin D levels (ng/mL) Deficient <13 At risk of inadequacy 13-19 Sufficient 20-50 Possibly harmful >50 References: [employer], 2010 Dietary reference intakes for calcium and vitamin D. Guidry [place]: ??The National Academies Press. Eve M, Forrest N, Maksim BIRCH, et al., Evaluation, treatment, and prevention of Vitamin D deficiency: an Endocrinology Clinical Practice Guideline. JCEM 2011 96: 7 3381-1122. Faiza A, Manjinder C, Tyson D, et al., Vitamin D Status: ??[place], 2000- 6, [facility] data brief, no. 59, MD Claudia: ??National Center for Health Statistics. 2010. Connor Yuan APRN, LEARNING CENTER COORDINATOR CHEMISTRY ORDERA BLES Final Result [facility] #[address] [place] [address] documented in this encounter Visit Diagnoses Diagnosis Hemoptysis- Primary Hemoptysis, unspecified Chronic sinus complaints Other symptoms involving respiratory system and chest Diabetic polyneuropathy associated with type 2 diabetes mellitus (HCC) Vitamin D deficiency Unspecified vitamin D deficiency documented in this encounter Additional Health Concerns Assessment Noted Time PHQ-9 Depression Total Score: 0 04/07/20 20 3:34 PM CDT documented as of this encounter Care Teams Supervisor Ticket Sales Relationship Specialty Start Date End Date Oswaldo Serrano MD [address] [address] PCP - General Family Medicine 05/19/17 Angel Crowe DPM #[address] [address] Consulting Physician Podiatry 06/16/17 Mora Fritz Behavioral Health Navigator 06/15/18 documented as of this encounter
--- OUTSIDE RECORDS SUMMARY | 2024-10-07 00:30 | XMS_ITS | Encounter Summary ---
Author Organization [facility] Care Team Providers Care Director Emergency Services Name Role Phone Oswaldo Serrano MD Primary Care Provider [phone] Angel Crowe DPM Unavailable [phone] Mora Fritz Unavailable Unavailable Encounter Details Date Type Department Care Team (Latest Contact Info) Description 07/09/2020 Travel Social History Tobacco Use Types Packs/Day [...] Contact Info) Description 10/08/2024 2:15 PM CHIEF DEVELOPMENT OFFICER Office Visit [facility] #2 [place] [phone] Orlin Urbina CUSTOMER SERVICE TELLER, SALES SUPPORT MANAGER #[address] [place] [address] 10/18/2024 2:15 PM CHIEF DEVELOPMENT OFFICER Appointment [facility] 1 [place] [address] Oswaldo Serrano MD #[address] [address] Discharge Disposition: Discharged to home or Selfcare 11/29/2024 2:30 PM CHIEF DEVELOPMENT OFFICER [facility] [place] #2 [place] [address] Oswaldo Serrano MD #[address] [address] 11/30/2024 3:00 PM CHIEF DEVELOPMENT OFFICER [facility] Visit [facility] - [place] #2 [place] [address] Ok Jorge MD #[address] [address] documented as of this encounter Visit Diagnoses Not on filedocumented in this encounter Additional Health Concerns Assessment Noted Time PHQ-9 Depression Total Score: 5 06/09/20 20 4:22 PM CDT documented as of this encounter Care Teams Director Emergency Services Relationship Specialty Start Date End Date Oswaldo Serrano MD #[address] [address] PCP - General Family Medicine 05/19/17 Angel Crowe DPM #[address] [address] Consulting Physician Podiatry 06/16/17 Mora Fritz Behavioral Health Navigator 06/15/18 documented as of this encounter
--- OUTSIDE RECORDS SUMMARY | 2024-10-07 00:30 | XMS_ITS | Encounter Summary ---
Author Organization [facility] Address [address] [place] [address] Phone Care Team Providers Care Cylinder Batcher Name Role Phone Oswaldo Serrano MD Primary Care Provider Angel Crowe DPM Unavailable [phone] Mora Fritz Unavailable Unavailable Encounter Details Date Type Department Care Team (Late st Contact Info) Description 04/27/2020 Telephone [facility] #2 [place] [phone] Oswaldo Serrano MD #[address] [address] Social History Tobacco Use Types Packs/Day Years [...] Telephone Encounter - Oswaldo Serrano MD - 04/30/2020 12:45 AM CDT DONE. documented in this encounter Plan of Treatment Upcoming Encounters Date Type Department Care Team (Late st Contact Info) Description 10/08/2024 2:15 PM PROJECT TECHNICIAN Office Visit [facility] #2 [place] [address] Orlin Urbina, ADMINISTRATION ASSISTANT, COMPANY MINER BLASTING #2 [place] [address] 10/18/2024 2:15 PM PROJECT TECHNICIAN Appointment [facility] Mammography 1 [place] [address] Oswaldo Serrano MD #[address] [address] Discharge Disposition: Discharged to home or Selfcare 11/29/2024 2:30 PM PROJECT TECHNICIAN Office Visit [facility] #2 [place] [address] Oswaldo Serrano MD #[address] [address] 11/30/2024 3:00 PM PROJECT TECHNICIAN Office Visit [facility] - Endocrinology [facility] #2 [place] [address] Ok Jorge MD #2 [facility] [address] [place] [address] documented as of this encounter Visit Diagnoses Not on filedocumented in this encounter Additional Health Concerns Assessment Noted Time PHQ-9 Depression Total Score: 0 04/07/20 20 3:34 PM CDT documented as of this encounter Care Teams Cylinder Batcher Relationship Specialty Start Date End Date Oswaldo Serrano MD #2 [facility] [address] [place] [address] PCP - General Family Medicine 05/19/17 Angel Crowe DPM #2 [facility] [address] [place] [address] Consulting Physician Podiatry 06/16/17 Mora Fritz Behavioral Health Navigator 06/15/18 documented as of this encounter
--- OUTSIDE RECORDS SUMMARY | 2024-10-07 00:30 | XMS_ITS | Encounter Summary ---
Author Organization [facility] Address [address] [place] [address] Phone Care Team Providers Care Park Attendant Name Role Phone Oswaldo Serrano MD Primary Care Provider Angel Crowe DPM Unavailable Mora Fritz Unavailable Unavailable Encounter Details Date Type Department Care Team (Late st Contact Info) Description 2019 Telephone [facility] - [facility]astroenterology [facility] #2 [place] [phone] Rosalba De Luna MD #2 [place] [address] Social History Tobacco Use Types Packs/Day Years [...] encounter Miscellaneous Notes * Telephone Encounter - Cinthya Love - 2019 9:04 AM CDT Blood thinner Clearance Sent to Dr. Pastora Flores for Colonoscopy order by Dr. Felicita Serrano documented in this encounter Plan of Treatment Upcoming Encounters Date Type Department Care Team (Late st Contact Info) Description 10/08/2024 2:15 PM HAND CLOTH EXAMINER Office Visit [facility] #2 [place] [address] Orlin Urbina, ENGAGEMENT MGR, BOTTOMING ROOM INSPECTOR #2 [place] [address] 10/18/2024 2:15 PM HAND CLOTH EXAMINER Appointment [facility] Mammography 1 [place] [id number] Oswaldo Serrano MD #[address] [address] Discharge Disposition: Discharged to home or Selfcare 11/29/2024 2:30 PM HAND CLOTH EXAMINER Office Visit [facility] - Family Medicine [facility] #2 [place] [address] Oswlado Serrano MD #[address] [address] 11/30/2024 3:00 PM HAND CLOTH EXAMINER Office Visit [facility] - Endocrinology - [place] #2 [place] [address] Ok Jorge MD #2 [facility] [address] [place] [address] documented as of this encounter Visit Diagnoses Not on filedocumented in this encounter Additional Health Concerns Assessment Noted Time PHQ-9 Depression Total Score: 1 12/14/19 20 2:55 PM HAND CLOTH EXAMINER documented as of this encounter Care Teams Park Attendant Relationship Specialty Start Date End Date Oswaldo Serrano MD #2 [facility] [address] [place] [address] PCP - General Family Medicine 05/19/17 Angel Crowe DPM #2 [facility] [address] [place] [address] Consulting Physician Podiatry 06/16/17 Mora Fritz Behavioral Health Navigator 06/15/18 documented as of this encounter
--- OUTSIDE RECORDS SUMMARY | 2024-10-07 00:30 | XMS_ITS | Encounter Summary ---
Author Organization [facility] Address [address] [place] [address] Phone Care Team Providers Care Organic Chemist Name Role Phone Oswaldo Serrano MD Primary Care Provider [phone] Angel Crowe DPM Unavailable [phone] Mora Fritz Unavailable Unavailable Reason for Visit * Reason Comments Medication Refill Encounter Details Date Type Department Care Team (Late st Contact Info) Description 06/19/2020 Refill [facility] Family Medicine [facility] #2 [place] [address] Connor Yuan, JOHN, ASSEMBLY LINE MACHINE OPERATOR #[address] [address] Medication Refill Social History Tobacco Use Types [...] COVID-19? No / Unsure 08/25/2020 1:02 PM PRACTICAL NURSING FACULTY documented as of this encounter Miscellaneous Notes * Telephone Encounter - Ifeoma Kingsley - 09/06/2020 12:01 PM CST Patient notified via [facility] of need for a lab appointment. TICAL NURSING FACULTY * Telephone Encounter - Maria Luisa Michael RN - 06/20/2020 12:22 PM CDT Routing to [facility] scheduling to contact patient and schedule lab apt. Thank you * Telephone Encounter - Oswaldo Serrano MD - 06/20/2020 12:10 PM CDT Tell her to get the Vit. D lab done in 3 weeks (nonfasting), then I'll see about giving her a refill on this. She has an open lab order. Thanks! * Telephone Encounter - Maria Luisa Michael RN - 06/20/2020 11:54 AM CDT Medication failed the protocol, provider to review and approve the medication order. Requested Prescriptions Pending Prescriptions Disp Refills ergocalciferol (VITAMIN D) 34860 UNIT Capsule [Pharmacy Med Name: VITAMIN D 50,000UNIT CAP STR] 4 Cap 2 Sig: TAKE ONE CAPSULE BY MOUTH ONCE WEEKLY Off-Protocol Failed - 06/20/2020 11:54 AM Failed - Medication not assigned to a protocol, review manually. Passed - Valid encounter within last 12 months Past Office Visits Recent Outpatient Visits 1 week ago Tick bite, initial encounter [facility] Oswaldo Serrano MD 3 weeks ago Diarrhea, unspecified type [facility] Oswaldo Serrano MD 2 months ago Hemoptysis [facility] Connor Yuan APN, ASSEMBLY LINE MACHINE OPERATOR 3 months ago Hyperlipidemia, unspecified hyperlipidemia type [facility] Oswaldo Serrano MD 6 months ago Type 2 diabetes mellitus treated with insulin (HCC) [facility] Merry Elliott, PAC Upcoming Appointments Future Appointments Today Ok Jorge MD [facility], [facility] In 2 months Carson Michel MD [facility], [facility] In 2 months Oswaldo Serrano MD [facility], [facility] MOTOR COACH TOUR OPERATOR - Recent and Past Visits Recent Visits Date Type Provider Dept 06/09/20 Office Visit Oswaldo Serrano MD [facility] [place] 05/29/20 Telemedicine Oswaldo Serrano MD [facility] [place] 04/07/20 Office Visit Connor Yuan APN, ASSEMBLY LINE MACHINE OPERATOR [facility] 03/18/20 Telemedicine Oswaldo Serrano MD [facility] [place] 12/14/19 Office Visit Merry Elliott, AIDEN [facility] 08/28/19 Office Visit Oswaldo Serrano MD [facility] 06/22/19 Office Visit Connor Yuan APN, ASSEMBLY LINE MACHINE OPERATOR [facility] Showing recent visits within past 460 days with a meds authorizing provider and meeting all other requirements Future Appointments Date Type Provider Dept 09/16/20 Appointment Oswaldo Serrano MD [facility] Showing future appointments within next 90 days with a meds authorizing provider and meeting all other requirements 2 months ago (04/08/2020) ergocalciferol (VITAMIN D) 77401 UNIT Capsule Take 1 Cap by mouth once a week. Dispense: 4 Cap? Refills: 2? Start: 04/08/2020? documented in this encounter Plan of Treatment Upcoming Encounters Date Type Department Care Team (Late st Contact Info) Description 10/08/2024 2:15 PM PRACTICAL NURSING FACULTY Office Visit [facility] UR[facility] #2 [place] [address] Orlin Urbina, AUTOMOTIVE AIRCONDITIONING MECHANIC, ASSEMBLY LINE MACHINE OPERATOR #2 [place] [address] 10/18/2024 2:15 PM PRACTICAL NURSING FACULTY Appointment [facility] M[facility]ography 1 [place] [address] Oswaldo Serrano MD #[address] [address] Discharge Disposition: Discharged to home or Selfcare 11/29/2024 2:30 PM PRACTICAL NURSING FACULTY Office Visit [facility] - [place] #2 [place] [address] Oswaldo Serrano MD #[address] [address] 11/30/2024 3:00 PM PRACTICAL NURSING FACULTY Office Visit [facility] - Endocrinology - [place] #2 [place] [address] Ok Jorge MD #[address] [address] documented as of this encounter Visit Diagnoses Diagnosis Vitamin D deficiency Unspecified vitamin D deficiency documented in this encounter Additional Health Concerns Assessment Noted Time PHQ-9 Depression Total Score: 5 06/09/20 20 4:22 PM CDT documented as of this encounter Care Teams Organic Chemist Relationship Specialty Start Date End Date Oswaldo Serrano MD #[address] [address] PCP - General Family Medicine 05/19/17 Angel Crowe DPM #[address] [address] Consulting Physician Podiatry 06/16/17 Mora Fritz Behavioral Health Navigator 06/15/18 documented as of this encounter
--- OUTSIDE RECORDS SUMMARY | 2024-10-07 00:30 | XMS_ITS | Encounter Summary ---
Author Organization [facility] Care Team Providers Care Rubber Printing Machine Operator Name Role Phone Oswaldo Serrano MD Primary Care Provider [phone] Angel Crowe DPM Unavailable [phone] Mora Fritz Unavailable Unavailable Encounter Details Date Type Department Care Team (Latest Contact Info) Description 04/07/2020 Travel Social History Tobacco Use Types Packs/Day [...] st Contact Info) Description 10/08/2024 2:15 PM PHARMACEUTICAL WORKER Office Visit [facility] #2 [place] [address] Orlin Urbina OIL HEAT TECHNICIAN, FINANCIAL SERVICES INTER[employer]IP #2 [place] [address] 10/18/2024 2:15 PM PHARMACEUTICAL WORKER Appointment [facility] Mamm[facility] 1 [place] [address] Oswaldo Serrano MD #[address] [address] Discharge Disposition: Discharged to home or Selfcare 11/29/2024 2:30 PM PHARMACEUTICAL WORKER Office Visit [facility] - Family [facility] - [place] #2 [place] [address] Oswaldo Serrano MD #[address] [address] 11/30/2024 3:00 PM PHARMACEUTICAL WORKER Office Visit [facility] - Endocrinology - [place] #2 [place] [address] Ok Jorge MD #[address] [address] documented as of this encounter Visit Diagnoses Not on filedocumented in this encounter Additional Health Concerns Assessment Noted Time PHQ-9 Depression Total Score: 0 04/07/20 20 3:34 PM CDT documented as of this encounter Care Teams Rubber Printing Machine Operator Relationship Specialty Start Date End Date Oswaldo Serrano MD #[address] [address] PCP - General Family Medicine 05/19/17 Angel Crowe DPM #[address] [address] Consulting Physician Podiatry 06/16/17 Mora Fritz Behavioral Health Navigator 06/15/18 documented as of this encounter
--- OUTSIDE RECORDS SUMMARY | 2024-10-07 00:30 | XMS_ITS | Encounter Summary ---
Author Organization [facility] Care Team Providers Care Employment Law Specialist Name Role Phone Oswaldo Serrano MD Primary Care Provider [phone] Angel Crowe DPM Unavailable [phone] Mora Fritz Unavailable Unavailable Encounter Details Date Type Department Care Team (Latest Contact Info) Description 12/14/2019 Travel Social History Tobacco Use Types Packs/Day [...] Upcoming Encounters Date Type Department Care Team ( Contact Info) Description 10/08/2024 2:15 PM KAPOK MACHINE OPERATOR Office Visit [facility] #[address] [place] [address] Orlin Urbina, RECRUITER, INFORMATION SYSTEMS PROJECT MANAGER #2 [place] [address] 10/18/2024 2:15 PM KAPOK MACHINE OPERATOR [facility]ment [facility] 1 [place] [address] Oswaldo Serrano MD #[address] [address] Discharge Disposition: Discharged to home or Selfcare 11/29/2024 2:30 PM KAPOK MACHINE OPERATOR Office Visit [facility] - Family Medicine [facility] #2 [place] [address] Oswaldo Serrano MD #[address] [address] 11/30/2024 3:00 PM KAPOK MACHINE OPERATOR [facility] Visit [facility]ology - [place] #2 [place] [address] Ok Jorge MD #[address] [address] documented as of this encounter Visit Diagnoses Not on filedocumented in this encounter Additional Health Concerns Assessment Noted Time PHQ-9 Depression Total Score: 1 12/14/19 20 2:55 PM KAPOK MACHINE OPERATOR documented as of this encounter Care Teams Employment Law Specialist Relationship Specialty Start Date End Date Oswaldo Serrano MD #[address] [address] PCP - General Family Medicine 05/19/17 Angel Crowe DPM #[address] [address] Consulting Physician Podiatry 06/16/17 Mora Fritz Behavioral Health Navigator 06/15/18 documented as of this encounter
--- OUTSIDE RECORDS SUMMARY | 2024-10-07 00:30 | XMS_ITS | Encounter Summary ---
Author Organization [facility] Address [address] [place] [address] Phone Care Team Providers Care Fuel Island Attendant Name Role Phone Oswaldo Serrano MD Primary Care Provider [phone] Angel Crowe DPM Unavailable Mora Fritz Unavailable Unavailable Ok Jorge MD Unavailable Orlin Urbina APRN, CHILD CARE ATTENDANT SCHOOL Unavailable [phone] Reason for Visit * Reason Comments Medication Refill Encounter Details Date Type Department Care Team (Late st Contact Info) Description 2019 Refill [facility] - [facility] - [place] #2 [place] [address] Ok Jorge MD #[address] [address] Medication Refill Social History Tobacco [...] Telephone Encounter - Ynes Zuniga RN - 2019 4:13 PM CDT Refill request received. Order pended. Requested Prescriptions Pending Prescriptions Disp Refills ??? Insulin Syringe-Needle U-100 (TRUEPLUS INSULIN SYRINGE) 31G X 5/16 0.5 ML Misc [Pharmacy Med Name: LEADER NOBLE IBARRA MIS 0.5/31G] 400 Each 2 Sig: USE 4 TIMES DAILY Next appt: 03/18/2020 documented in this encounter Plan of Treatment Upcoming Encounters Date Type Department Care Team (Late st Contact Info) Description 10/08/2024 2:15 PM RN ORTHOPAEDICS Office Visit [facility] #2 [place] [address] Orlin Urbina APRN, CHILD CARE ATTENDANT SCHOOL #2 [place] [address] 10/18/2024 2:15 PM RN ORTHOPAEDICS Appointment [facility] Mammography 1 [place] [address] Oswaldo Serrano MD #[address] [address] Discharge Disposition: Discharged to home or Selfcare 11/29/2024 2:30 PM RN ORTHOPAEDICS Office Visit [facility] - Family Medicine [facility] #2 [place] [address] Oswaldo Serrano MD #[address] [address] 11/30/2024 3:00 PM RN ORTHOPAEDICS Office Visit [facility] - Endocrinology [facility] #2 [place] [address] Ok Jorge MD #[address] [place] [address] documented as of this encounter Visit Diagnoses Not on filedocumented in this encounter Additional Health Concerns Infection Onset Date Last Indicated Resolved Time COVID - 19 05/29/2020 05/30/2020 06/01/2020 4:09 PM CDT COVID - 19 10/09/2020 10/09/2020 10/11/2020 5:17 AM RN ORTHOPAEDICS COVID - 19 11/12/2020 11/12/2020 11/16/2020 9:49 AM RN ORTHOPAEDICS COVID - 19 07/28/2021 07/29/2021 08/17/2021 12:1 6 AM RN ORTHOPAEDICS Assessment Noted Time PHQ-9 Depression Total Score: 1 12/14/19 20 2:55 PM RN ORTHOPAEDICS documented as of this encounter Care Teams [place] Attendant Relationship Specialty Start Date End Date Oswaldo Serrano MD #[address] [address] PCP - General Family Medicine 05/19/17 Angel Crowe DPM #[address] [address] Consulting Physician Podiatry 06/16/17 Mora Fritz Behavioral Health Navigator 06/15/18 Ok Jorge MD #[address] [address] Consulting Physician Endocrinology 05/12/22 Orlin Urbina, ELEMENTARY EDUCATION TEACHER, CHILD CARE ATTENDANT SCHOOL #2 [place] [address] Nurse Practitioner Advanced Practice Nurse 11/09/22 documented as of this encounter
--- OUTSIDE RECORDS SUMMARY | 2024-10-07 00:30 | XMS_ITS | Encounter Summary ---
Author Organization [facility] Address [address] [place] [address] Phone Care Team Providers Care Country Manager Name Role Phone Oswaldo Serrano MD Primary Care Provider Angel Crowe DPM Unavailable Mora Fritz Unavailable Unavailable Reason for Visit * Reason Onset Date Comments Medication Refill 03/26/2020 Encounter Details Date Type Department Care Team (Late st Contact Info) Description 03/26/2020 Refill [facility] - Endocrinology - [place] #2 [place] [address] Ok Jorge MD #[address] [address] Medication Refill Social History Tobacco [...] Telephone Encounter - Lucila Panda CMA - 03/26/2020 1:32 PM CDT Patient is needing a refill on test strips, script pended. documented in this encounter Plan of Treatment Upcoming Encounters Date Type Department Care Team (Late st Contact Info) Description 10/08/2024 2:15 PM CSO Office Visit [facility] #2 [place] [address] Orlin Urbina, JOHN, HEEL TOP LIFT SPLITTER #2 [place] [address] 10/18/2024 2:15 PM CSO Appointment [facility] Mammography 1 [place] [address] Oswaldo Serrano MD #[address] [address] Discharge Disposition: Discharged to home or Selfcare 11/29/2024 2:30 PM CSO Office Visit [facility] - Family Medicine [facility] #2 [place] [address] Oswaldo Serrano MD #[address] [address] 11/30/2024 3:00 PM CSO Office Visit [facility] - Endocrinology - [place] #2 [place] [address] Ok Jorge MD #2 [facility] [address] [place] [address] documented as of this encounter Visit Diagnoses Not on filedocumented in this encounter Additional Health Concerns Assessment Noted Time PHQ-9 Depression Total Score: 1 12/14/19 20 2:55 PM CSO documented as of this encounter Care Teams Country Manager Relationship Specialty Start Date End Date Oswaldo Serrano MD #[address] [address] PCP - General Family Medicine 05/19/17 Angel Crowe DPM #[address] [address] Consulting Physician Podiatry 06/16/17 Mora Fritz Behavioral Health Navigator 06/15/18 documented as of this encounter
--- OUTSIDE RECORDS SUMMARY | 2024-10-07 00:30 | XMS_ITS | Encounter Summary ---
Author Organization [facility] Address [address] [place] [address] Phone Care Team Providers Care Plumber And Tinner Name Role Phone Oswaldo Serrano MD Primary Care Provider Angel Crowe DPM Unavailable Mora Fritz Unavailable Unavailable Reason for Visit * Reason Comments Hemoptysis Encounter Details Date Type Department Care Team (Late st Contact Info) Description 03/29/2020 11:18 PM CDT - 03/30/2020 1:06 AM CDT Emergency [facility] Emergency [address] [place] [address] Azeem Thomas MD [address] [place] [address] Hemoptysis Discharge Disposition: Discharged to home or Selfcare [...] Sign Reading Time Taken Comments Blood Pressure 149/94 03/30/2020 1:00 AM CDT Pulse 77 03/30/2020 1:00 AM CDT Temperature 37.1 ??C (98.8 ??F) 03/29/2020 11:14 PM C DT Respiratory Rate 23 03/30/2020 1:00 AM CDT Oxygen Saturation 96% 03/30/2020 1:00 AM CDT Inhaled Oxygen Concentration - - Weight 120.7 kg (266 lb) 03/29/2020 11:14 PM CDT Height 167.6 cm (5' 6 ) 03/29/2020 11:14 PM CDT Body Mass Index 42.93 03/29/2020 11:14 PM CDT documented in this encounter Discharge Instructions * Attachments The following attachments cannot be sent through Care Everywhere. * Hemoptysis (Nigerien) documented in this encounter Medications at Time [...] 25 mg 2 times daily. 05/06/2017 4 diphenhydrAMINE (BENADRYL) 25 MG TabletIndications :Insomnia,itching Take 25 mg by mouth every 6 hours as needed for Itching or Sleep. 05/24/2017 2 escitalopram (LEXAPRO) 10 MG Tablet TAKE 1 TABLET BY MOUTH DAILY. 90 Tab 3 10/01/2019 0 furosemide (LASIX) 40 MG Tablet TK 1 T PO BID 2 04/29/2017 1 Glucose Blood Strip Test blood glucose 4x daily. E11.9, insulin dependent 400 Strip 3 03/26/2020 1 insulin degludec (Tresiba FlexTouch) 100 UNIT/ML Solution Pen-injector Tresiba FlexTouch U-100 100 unit/mL (3 mL) insulin pen 10/10/1969 3 insulin lispro (HUMALOG) 100 UNIT/ML Solution INJECT 10 UNITS AT BREKFAST, 5 UNITS AT LUNCH AND 10 UNITS AT DINNER --- CORRECTIONAL FACTOR INSULIN OF 1:25 UP TO 40 UNITS PER DAY 20 mL 2 11/19/2019 0 Insulin Pen Needle (PEN NEEDLES 31GX5/16 ) 31G X 8 MM Misc Three times a day 300 Each 3 07/01/2017 2 LANTUS 100 UNIT/ML Solution INJECT 16 UNITS EVERY MORNING. 10 mL 2 11/19/2019 0 levothyroxine (SYNTHROID) 50 MCG Tablet TAKE ONE TABLET DAILY IN THE MORNING ON AN EMPTY STOMACH 90 Tab 3 10/29/2019 0 lisinopril (PRINIVIL, ZESTRIL) 5 MG TabletIndications :Orthostatic hypotension TAKE 1 TABLET BY MOUTH DAILY. 90 Tab 2 02/14/2020 1 nortriptyline (PAMELOR) 10 MG Capsule TAKE 1 CAPSULE DAILY 90 Cap 3 09/17/2019 0 omeprazole (PRILOSEC) 20 MG CAPSULE DELAYED RELEASE Take 1 Cap by mouth daily. 90 Cap 3 02/07/2020 1 oxybutynin (DITROPAN) 5 MG Tablet TAKE ONE TABLET DAILY 90 Tab 3 10/15/2019 0 potassium chloride CR (KLORCON) 10 MEQ Tablet Controlled Release 08/18/2019 1 potassium chloride SA (KLORCON M) 20 MEQ Tablet Controlled Release potassium chloride 20 mEq tablet,ER particles/crystal s 10/10/1969 2 rivaroxaban (Xarelto) 20 MG Tablet Take 20 mg by mouth daily (with dinner). Take with food. 4 STOOL SOFTENER LAXATIVE 100 MG Capsule TAKE ONE CAPSULE TWICE DAILY 180 Cap 2 11/26/2019 0 documented as of this encounter ED Notes * Angel Price RN - 03/30/2020 1:05 AM CDT Patient discharged. Discharge instructions and patient educational material reviewed with patient; questions and concerns addressed; patient verbalizes understanding, using teach back. Patient discharged per wheelchair mode with self as responsible constitution party. SL D/C'ed with Satnam cath intact. * Angel Price RN - 03/29/2020 11:42 PM CDT IV established. Labs drawn ERP at bedside * Azeem Thomas MD - 03/29/2020 11:38 PM CDT Chief Complaint Patient presents with ??? Hemoptysis Loretta Penn is a 59 y.o. female who presents to the emergency department complaining of hemoptysis. Patient states today she had an episode of coughing and she coughed up a small amount of blood. It was dark and a clot formed. It was a strand. She did bring it in. Patient is a very poor historian. States that she has a scratchy throat. She has had shortness of breath x1 week. No fevers. No nausea vomiting. No pain anywhere besides the throat. Nothing makes symptoms better or worse. Tobias have a history of atrial fibrillation and does take Xarelto as a blood thinner. Past medical history: Illnesses: Atrial fibrillation, diabetes, CHF, hypertension, hepatitis-C Medications: See list Allergies: Sulfa Social History: Tobacco: Daily smoker Alcohol: Denies Drugs: Denies Family History: Noncontributory patient is not certain whether parents have No current facility-administered medications for this encounter. [...] taking: Reported on 12/14/2019) 180 Cap 2 Allergies Allergen Reactions ??? Sulfa Antibiotics Unknown and Hives ??? Sulfamethoxazole-Trimethoprim Hives Past Medical History Positives Diagnosis Date ??? Atrial fibrillation and flutter (HCC) ??? CHF, chronic (HCC) ??? Diabetes mellitus (HCC) ??? Hepatitis C ??? Hypertension ??? Pacemaker Past Surgical History: Procedure Laterality Date ??? APPENDECTOMY ??? APPENDECTOMY ??? HC DEFIB CARD RESYNCHRONIZATION DF4 IS4 EA/ ??? TOOTH EXTRACTION All of her teeth ??? WISDOM TOOTH EXTRACTION Social History Socioeconomic History ??? Marital status: Spouse name: Not on file ??? Number of children: Not on file ??? Years of education: Not on file ??? Highest education level: Not on file Occupational History ??? Not on file Social Needs ??? Financial resource strain: Not on file ??? Food insecurity: Worry: Not on file Inability: Not on file ??? Transportation needs: Medical: Not on file Non-medical: Not on file Tobacco Use ??? Smoking status: Never Smoker ??? Smokeless tobacco: Never Used Substance and Sexual Activity ??? Alcohol use: No ??? Drug use: No ??? Sexual activity: Never Partners: Male Lifestyle ??? Physical activity: Days per week: Not on file Minutes per session: Not on file ??? Stress: Not on file Relationships ??? Social connections: Talks on phone: Not on file Gets together: Not on file Attends restorationist service: Not on file Active member of club or organization: Not on file Attends meetings of clubs or organizations: Not on file Relationship status: Not on file ??? Intimate partner violence: Fear of current or ex partner: Not on file Emotionally abused: Not on file Physically abused: Not on file Forced sexual activity: Not on file Other Topics Concern ??? Not on file Social History Narrative ??? Not on file BP 112/43 Pulse 74 Temp 98.8 ??F (37.1 ??C) (Tympanic) Resp 18 Ht 5' 6 (1.676 m) Wt 266 lb (120.7 kg) LMP (LMP Unknown) SpO2 95% BMI 42.93 kg/m?? Review of Systems Constitutional: Negative for activity change, appetite change, chills, diaphoresis, fatigue and fever. HENT: Positive for sore throat. Negative for dental problem and rhinorrhea. Eyes: Negative for visual disturbance. Respiratory: Positive for cough and shortness of breath. Negative for chest tightness and wheezing. Hemoptysis Cardiovascular: Negative for chest pain, palpitations and leg swelling. Gastrointestinal: Negative for abdominal pain, constipation, diarrhea, nausea and vomiting. Genitourinary: Negative for difficulty urinating, flank pain, hematuria and urgency. Musculoskeletal: Negative for arthralgias, back pain, myalgias, neck pain and neck stiffness. Skin: Negative for color change and rash. Allergic/Immunologic: Negative for food allergies. Neurological: Negative for dizziness, syncope, weakness, light-headedness, numbness and headaches. Psychiatric/Behavioral: Negative for self-injury, sleep disturbance and suicidal ideas. All other systems reviewed and are negative. Physical Exam Vitals signs and nursing note reviewed. Constitutional: General: She is not in acute distress. Appearance: She is well-developed. She is obese. She is not ill-appearing, toxic-appearing or diaphoretic. HENT: Head: Normocephalic and atraumatic. Right Ear: External ear normal. Left Ear: External ear normal. Nose: Nose normal. Mouth/Throat: Pharynx: No oropharyngeal exudate. Eyes: General: Right eye: No discharge. Left eye: No discharge. Conjunctiva/sclera: Conjunctivae normal. Pupils: Pupils are equal, round, and reactive to light. Neck: Musculoskeletal: Normal range of motion and neck supple. Thyroid: No thyromegaly. Vascular: No JVD. Trachea: No tracheal deviation. Cardiovascular: Rate and Rhythm: Normal rate and regular rhythm. Heart sounds: Normal heart sounds. No murmur. Pulmonary: Effort: Pulmonary effort is normal. No respiratory distress. Breath sounds: Normal breath sounds. No wheezing or rales. Chest: Chest wall: No tenderness. Abdominal: General: Bowel sounds are normal. There is no distension. Palpations: Abdomen is soft. There is no mass. Tenderness: There is no abdominal tenderness. There is no guarding or rebound. Musculoskeletal: Normal range of motion. General: No tenderness. Lymphadenopathy: Cervical: No cervical adenopathy. Skin: General: Skin is warm and dry. Capillary Refill: Capillary refill takes less than 2 seconds. Coloration: Skin is not pale. Findings: No erythema or rash. Neurological: General: No focal deficit present. Mental Status: She is alert and oriented to person, place, and time. Cranial Nerves: No cranial nerve deficit. Motor: No abnormal muscle tone. Coordination: Coordination normal. Deep Tendon Reflexes: Reflexes are normal and symmetric. Psychiatric: Behavior: Behavior normal. Thought Content: Thought content normal. Procedures Imaging Results XR CHEST SINGLE VIEW PORTABLE (Final result) Result time 03/30/20 00:19:22 Final result by Ynes Garg MD (03/30/20 00:19:22) Impression: IMPRESSION: No definite acute cardiopulmonary process given technique. Narrative: EXAM DESCRIPTION: XR CHEST SINGLE VIEW PORTABLE REASON FOR STUDY: Chest Pain/hemoptysis, cough today, sore throat, shortness of breath for 1 week TECHNIQUE: Portable upright AP radiographic view of the chest acquired. COMPARISON: None available FINDINGS: LUNGS/PLEURA: No pneumonic consolidation, pleural fluid or pneumothorax HEART/MEDIASTINUM: Cardiomegaly. No superior mediastinal widening. Pulmonary vascular prominence centrally may be associated with technique. HARDWARE/LINES/TUBES: Left chest wall pacemaker/defibrillator. These are grossly intact although somewhat difficult to follow the given body habitus and technique. BONES: No acute abnormality. Chronic findings. OTHER: No other significant finding. THIS IS AN ELECTRONICALLY VERIFIED FINAL REPORT 03/30/2020 12:16 AM - Electronically signed by Ynes Garg M.D. JS: ARMANDO Report ID: [id number] Reading Location: [address] EKG interpreted by me. Time is 11:30 p.m.. Atrial fibrillation with a rate of 76. [employer] is normal. QRS is prolonged 131. There is a right bundle-branch block. There is poor R-wave progression ST segments are normal. There is diffuse T-wave flattening. There is no acute injury pattern. There are no old EKGs for comparison. Labs Reviewed APTT (PTT) - Abnormal; Notable for the following components: Result Value PTT 40 (*) All other components within normal limits Narrative: Therapeutic range for unfractionated heparin at 0.3-0.7 U/mL is an aPTT value in the range of 71-100 seconds. Critical value for the PTT test is >= 122 seconds. CMP (COMPREHENSIVE METABOLIC PANEL) - Abnormal; Notable for the following components: CHLORIDE 98 (*) GLUCOSE 116 (*) BUN 28 (*) CREATININE, BLOOD 1.17 (*) BUN/CREATININE RATIO 24 (*) ALKALINE PHOSPHATASE 155 (*) GFR, EST. NONAFRICAN 48 (*) GFR, EST. 58 (*) All other components within normal limits N-TERMINAL- PRO B TYPE NATRIURETIC PEPTIDE - Abnormal; Notable for the following components: NT PROBNP 1,157.0 (*) All other components within normal limits PROTIME (PT) (PROTHROMBIN TIME) - Abnormal; Notable for the following components: PROTIME-PATIENT 27.4 (*) INR 2.6 (*) All other components within normal limits CBC WITH AUTO DIFFERENTIAL - Abnormal; Notable for the following components: MCV 98.3 (*) All other components within normal limits TROPONIN I (TRP I) - Normal MAGNESIUM (MG) - Normal CULTURE, GRP A STREPTOCOCCUS, CULT ONLY COMPLETE BLOOD COUNT (CBC) WITH DIFF Narrative: The following orders were created for panel order Complete Blood Count (CBC) WITH Diff. Procedure Abnormality Status --------- ------ CBC with Auto Differential[[id number]] Abnormal Final result Please view results for these tests on the individual orders. POCT GROUP A STREP SCREEN RAPID XR CHEST SINGLE VIEW PORTABLE Final Result IMPRESSION: No definite acute cardiopulmonary process given technique. APTT (PTT) Final Result CMP (Comprehensive Metabolic Panel) Final Result Complete Blood Count (CBC) WITH Diff Final Result Initial Troponin Final Result MAGNESIUM (MG) Final Result NT-proBNP Final Result Protime (PT) (Prothrombin Time) Final Result EKG 12 LEAD (Results Pending) Patient with hemoptysis. She does have a history of AFib on Xarelto. It is not massive hemoptysis but may be in due to the Xarelto. Will need to rule out any kind of pneumonia considering she has been short of breath for a week. Could be viral. We will get chest x-ray, labs, EKG and patient may need to be admitted. Coding Clinical Impression 1. Hemoptysis The patient remained stable throughout their ED stay. My clinical impression was discussed with thepatient/caregiver. Any labs and radiology results were reviewed. Questions were addressed as completely as possible given the information available at present. The therapeutic plan was discussed, inst ructions were given and the importance of primary care follow up was stressed and encouraged. The patient/caregiver voiced understanding of the plan, indications to return, and the need for follow up. New Medications: New Prescriptions No medications on file I have advised the patient to follow-up with: Oswaldo Serrano MD [address] [address] In 3 days Dispostion: Discharge * Paris Portillo RN - 03/29/2020 11:19 PM CDT Patient presents to triage in wheelchair with complaint of coughing up blood at 1900 today, and upper mid back pain for 1 week. Also complains of some mid sternal chest pain with shortness of breath for the past week. Has history of atrial fib, pacemaker and CHF. Also complains of pain in feet and a scratchy throat . Patient to room 1. EKG done. Cardiac protocol initiated. documented in this encounter Plan of Treatment Upcoming Encounters Date Type Department Care Team (Late st Contact Info) Description 10/08/2024 2:15 PM SPINNERET PERSON Office Visit [facility] [address] [place] [phone] Orlin Urbina APRN, SOFTWARE IMPLEMENTATION PROJECT MANAGER [address] [place] [address] 10/18/2024 2:15 PM SPINNERET PERSON Appointment [facility] [address] [place] [address] Oswaldo Serrano MD #2 [facility] [address] [place] [address] Discharge Disposition: Discharged to home or Selfcare 11/29/2024 2:30 PM SPINNERET PERSON Office Visit [facility] - [place] [address] [place] [address] Oswaldo Serrano MD #2 [facility] [address] [place] [address] 11/30/2024 3:00 PM SPINNERET PERSON Office Visit [facility] - [place] [address] [place] [address] Ok Jorge MD #2 [facility] [address] [place] [address] documented as of this encounter Procedures Procedure Name Priority Date/Time Associated Diagnosis Comments XR CHEST SINGLE VIEW PORTABLE STAT 03/29/2020 11:57 PM CDT N-TERMINAL- PRO B TYPE NATRIURETIC PEPTIDE STAT 03/29/2020 11:40 PM CDT CBC WITH AUTO DIFFERENTIAL STAT 03/29/2020 11:40 PM CDT TROPONIN I (TRP I) STAT 03/29/2020 11 :40 PM CDT APTT (PTT) STAT 03/29/2020 11:40 PM CDT PROTIME (PT) (PROTHROMBIN TIME) STAT 03/29/2020 11:40 PM CDT MAGNESIUM (MG) STAT 03/29/2020 11:40 PM CDT CMP (COMPREHENSIVE METABOLIC PANEL) STAT 03/29/2020 11:40 PM CDT COMPLETE BLOOD COUNT (CBC) WITH DIFF STAT 03/29/2020 11:40 PM CDT EKG 12 LEAD STAT 03/29/2020 11:30 PM CDT POCT GROUP A STREP SCREEN RAPID STAT 03/29/2020 11:24 PM CDT CULTURE, GRP A STREPTOCOCCUS, CULT ONLY STAT 03/29/2020 11:24 PM CDT documented in this encounter Results * XR CHEST SINGLE VIEW PORTABLE (03/29/2020 11:57 PM CDT) Anatomical Region Laterality Modality Chest N/A Digital Radiogra phy 03/30/2020 12:1 6 AM CDT Addenda Addendum by Ynes Garg MD on 10/17/2020 9:28 PM SPINNERET PERSON ADDENDUM: ??This addendum report supersedes the original report dated 03/29/2020 The undersigned has reviewed this study and agrees with the initial interpretation. THIS IS AN ELECTRONICALLY VERIFIED FINAL REPORT 10/17/2020 9:25 PM - Electronically signed by Ynes Garg M.D. JS: ARMANDO D: ??10/17/2020 9:18 AM T: ??10/17/2020 9:18 AM Report ID: [id number] Reading Location: ??[id number] EXAM DESCRIPTION: ?? XR CHEST SINGLE VIEW PORTABLE REASON FOR STUDY: ?? Chest Pain/hemoptysis, cough today, sore throat, shortness of breath for 1 week TECHNIQUE: ?? Portable upright AP radiographic view of the chest acquired. COMPARISON: ?? None available FINDINGS: ??LUNGS/PLEURA: ??No pneumonic consolidation, pleural fluid or pneumothorax HEART/MEDIASTINUM: ??Cardiomegaly. ??No superior mediastinal widening. Pulmonary vascular prominence centrally may be associated with technique. HARDWARE/LINES/TUBES: ??Left chest wall pacemaker/defibrillator. ?? These are grossly intact although somewhat difficult to follow the given body habitus and technique. BONES: ??No acute abnormality. ??Chronic findings. OTHER: ??No other significant finding. IMPRESSION: ?? No definite acute cardiopulmonary process given technique. THIS IS AN ELECTRONICALLY VERIFIED FINAL REPORT 03/30/2020 12:16 AM - Electronically signed by Ynes ROBERTS: ARMANDO D: ??03/30/2020 12:16 AM T: ??03/30/2020 12:16 AM Report ID: [id number] Reading Location: ??[id number] Impressions 03/30/2020 12:19 AM CDT IMPRESSION: ?? No definite acute cardiopulmonary process given technique. Narrative 03/30/2020 12:19 AM CDT EXAM DESCRIPTION: ?? XR CHEST SINGLE VIEW PORTABLE REASON FOR STUDY: ?? Chest Pain/hemoptysis, cough today, sore throat, shortness of breath for 1 week TECHNIQUE: ?? Portable upright AP radiographic view of the chest acquired. COMPARISON: ?? None available FINDINGS: ??LUNGS/PLEURA: ??No pneumonic consolidation, pleural fluid or pneumothorax HEART/MEDIASTINUM: ??Cardiomegaly. ??No superior mediastinal widening. Pulmonary vascular prominence centrally may be associated with technique. HARDWARE/LINES/TUBES: ??Left chest wall pacemaker/defibrillator. ?? These are grossly intact although somewhat difficult to follow the given body habitus and technique. BONES: ??No acute abnormality. ??Chronic findings. OTHER: ??No other significant finding. THIS IS AN ELECTRONICALLY VERIFIED FINAL REPORT 03/30/2020 12:16 AM - Electronically signed by Ynes ROBERTS: ARMANDO D: ??03/30/2020 12:16 AM T: ??03/30/2020 12:16 AM Report ID: [id number] Reading Location: ??[id number] Procedure Note Ynes Garg MD - 03/30/2020 EXAM DESCRIPTION: XR CHEST SINGLE VIEW PORTABLE REASON FOR STUDY: Chest Pain/hemoptysis, cough today, sore throat, shortness of breath for 1 week TECHNIQUE: Portable upright AP radiographic view of the chest acquired. COMPARISON: None available FINDINGS: LUNGS/PLEURA: No pneumonic consolidation, pleural fluid or pneumothorax HEART/MEDIASTINUM: Cardiomegaly. No superior mediastinal widening. Pulmonary vascular prominence centrally may be associated with technique. HARDWARE/LINES/TUBES: Left chest wall pacemaker/defibrillator. These are grossly intact although somewhat difficult to follow the given body habitus and technique. BONES: No acute abnormality. Chronic findings. OTHER: No other significant finding. THIS IS AN ELECTRONICALLY VERIFIED FINAL REPORT 03/30/2020 12:16 AM - Electronically signed by Ynes Garg M.D. JS: ARMANDO Report ID: [id number] Reading Location: [place] [address] IMPRESSION: No definite acute cardiopulmonary process given technique. Azeem Thomas MD IMG DIAGNOSTIC ORDERABLES Edite d Result - Final * (ABNORMAL) Protime (PT) (Prothrombin Time) (03/29/2020 11:40 PM CDT) PROTIME-PATIENT 27.4(H) 11.6 - 14.8 sec 03/30/2020 12:12 AM CDT [facility] INR 2.6(H) 0.9 - 1.2 03/30/2020 12:12 AM CDT [facility] Comment: Therapeutic Ranges INR = 2.0-3.0: Venous thromb, atrial fib, pul embolism, tissue heart valve, ami. INR = 2.5-3.5: Mechanical heart valve Critical value for INR is >/= 4.5 Blood Venous Catheter (IV) / Unknown 03/29/2020 11:40 PM CDT 03/29/2020 11:48 PM CDT Azeem Thomas MD HEMATOLOGY ORDERABLES Final Res ult [facility] [address] [place] [address] * (ABNORMAL) CBC with Auto Differential (03/29/2020 11:40 PM CDT) WBC 7.30 4.00 - 12.00 10(3)/mcL 03/29/2020 11:51 PM CDT [facility] RBC 4.13 3.80 - 5.30 10(6)/mcL 03/29/2020 11:51 PM CDT [facility] HEMOGLOBIN (HGB) 13.5 12.0 - 15.8 g/dL 03/29/2020 11:51 PM CDT [facility] HEMATOCRIT (HCT) 40.6 36.0 - 47.0 % 03/29/2020 11:51 PM CDT [facility] MCV 98.3(H) 82.0 - 96.0 fL 03/29/2020 11:51 PM CDT [facility] MCH 32.7 26.0 - 34.0 pg 03/29/2020 11:51 PM CDT [facility] MCHC 33.3 31.0 - 36.0 g/dL 03/29/2020 11:51 PM CDT [facility] PLATELET COUNT 239 140 - 440 10(3)/mcL 03/29/2020 11:51 PM CDT [facility] RDW 12.3 11.8 - 15.5 % 03/29/2020 11:51 PM CDT [facility] MPV 9.7 9.7 - 12.4 fL 03/29/2020 11:51 PM CDT [facility] NEUTROPHILS 57.1 47.0 - 73.0 % 03/29/2020 11:51 PM CDT [facility] LYMPHOCYTES 31.8 18.0 - 42.0 % 03/29/2020 11:51 PM CDT [facility] MONOCYTES 7.4 4.0 - 12.0 % 03/29/2020 11:51 PM CDT [facility] EOSINOPHILS 2.9 0.0 - 5.0 % 03/29/2020 11:51 PM CDT [facility] BASOPHILS 0.8 0.0 - 1.0 % 03/29/2020 11:51 PM CDT [facility] ABSOLUTE NEUTROPHILS 4.17 1.60 - 7.70 10(3)/mcL 03/29/2020 11:51 PM CDT [facility] ABSOLUTE LYMPHOCYTES 2.32 1.30 - 3.20 10(3)/mcL 03/29/2020 11:51 PM CDT [facility] ABSOLUTE MONOCYTES 0.54 0.20 - 1.00 10(3)/mcL 03/29/2020 11:51 PM CDT [facility] ABSOLUTE EOSINOPHIL 0.21 0.00 - 0.40 10(3)/mcL 03/29/2020 11:51 PM CDT [facility] ABSOLUTE BASOPHILS 0.06 0.00 - 0.10 10(3)/mcL 03/29/2020 11:51 PM CDT [facility] NRBC PER 100 WBC 0 03/29/20 11:51 PM CDT [facility] Blood Venous Catheter (IV) / Unknown 03/29/2020 11:40 PM CDT 03/29/2020 11:48 PM CDT us Azeem Thomas MD HEMATOLOGY ORDERABLES Final Res ult [facility] [address] [place] [address] * (ABNORMAL) NT-proBNP (03/29/2020 11:40 PM CDT) NT PROBNP 1,157.0(H ) 5.0 - 227.0 pg/mL 03/30/2020 12:35 AM CDT [facility] Comment:NT-proBNP values < 3 00 pg/mL have a 99% negative predictive value for excluding acute congestive heart failure (CHF) in all age groups. In the absence of renal failure, CHF is suggested in adults < 50 years of age with a NT-pro BNP > 450 pg/mL; in adults 50-75 years of age with a NT-proBNP > 900 pg/mL; and in adults > 75 years of age with a NT-proBNP > 1800 pg/mL. For patients with an e-GFR < 60 a NT-proBNP > 1200 pg/mL yields a diagnostic sensitivity and specificity of 89% and 72% for acute CHF. ([facility] data) Blood Venipuncture / Unknown 03/29/2020 11:40 PM CDT 03/29/2020 11:52 PM CDT Azeem Thomas MD CHEMISTRY ORDERABLES Final Resu lt Performing Organization Address City/[facility]/ZIP Co de Phone Number [facility] [place] [address] * MAGNESIUM (MG) (03/29/2020 11:40 PM CDT) Pathologist [facility] MAGNESIUM 2.2 1.8 - 2.5 mg/dL 03/30/2020 12:14 AM CDT [facility] Blood Venous Catheter (IV) / Unknown 03/29/2020 11:40 PM CDT 03/29/2020 11:48 PM CDT Azeem Thomas MD CHEMISTRY ORDERABLES Final Resu lt Performing Organization Address [facility] Co de Phone Number [facility] [address] [place] [address] * Initial Troponin (03/29/2020 11:40 PM CDT) Pathologist [facility] TROPONIN I <0.300 <=0.300 ng/mL 03/30/2020 12:14 AM CDT [facility] Blood Venous Catheter (IV) / Unknown 03/29/2020 11:40 PM CDT 03/29/2020 11:48 PM CDT Azeem Thomas MD CHEMISTRY ORDERABLES Final Resu lt Performing Organization Address City/[facility] Co de Phone Number [facility] [address] [place] [address] * (ABNORMAL) CMP (Comprehensive Metabolic Panel) (03/29/2020 11:40 PM CDT) Pathologist [facility] SODIUM 139 136 - 144 mmol/L 03/30/2020 12:14 AM CDT [facility] POTASSIUM 4.5 3.5 - 5.1 mmol/L 03/30/2020 12:14 AM T [facility] CHLORIDE 98(L) 100 - 110 mmol/L 03/30/2020 12:14 AM [facility] CO2, VENOUS 27 22 - 32 mmol/L 03/30/2020 12:14 AM [facility] ANION GAP 18.5 8.0 - 20.0 mmol/L 03/30/2020 12:14 AM T [facility] GLUCOSE 116(H) 70 - 99 mg/dL 03/30/2020 12:14 AM [facility] BUN 28(H) 6 - 20 mg/dL 03/30/2020 12:14 AM [facility] CREATININE, BLOOD 1.17(H) 0.60 - 1.10 mg/dL 03/30/2020 12:14 AM [facility] BUN/CREATININE RATIO 24(H) 12 - 20 ratio 03/30/2020 12:14 AM [facility] TOTAL PROTEIN 7.5 6.0 - 8.3 g/dL 03/30/2020 12:14 AM [facility] ALBUMIN 4.2 3.5 - 5.2 g/dL 03/30/2020 12:14 AM [facility] Comment: The colormetric methods used for the determination of Albumin may lead to falsely elevated test results in patients suffering from renal failure or insufficiency due to interference with other proteins. A/G RATIO 1.3 1.0 - 2.0 03/30/2020 12:14 AM [facility] CALCIUM 9.6 8.9 - 10.3 mg/dL 03/30/2020 12:14 AM [facility] T BILI <=0.2 <=1.2 mg/dL 03/30/2020 12:14 AM [facility] SGOT (AST) 21 <=32 U/L 03/30/2020 12:14 AM [facility] SGPT (ALT) 18 <=33 U/L 03/30/2020 12:14 AM CDT [facility] ALKALINE PHOSPHATASE 155(H) 35 - 105 U/L 03/30/2020 12:14 AM CDT [facility] GFR, EST. NONAFRICAN 48(L) >=60 03/30/2020 12:14 AM CDT [facility] GFR, EST. 58(L) >=60 020 12:14 AM CDT [facility] Comment: Creatinine Clearance is the preferred criteria for selecting drug dose adjustments in renally impaired patients. ??The GFR is provided as additional pertinent clinical information. GFR is reported in mL/min/1.73 sq m. Blood Venous Catheter (IV) / Unknown 03/29/2020 11:40 PM CDT 03/29/2020 11:48 PM CDT Azeem Thomas MD CHEMISTRY ORDERABLES Final Resu lt Performing Organization Address [facility] Co de Phone Number [facility] [address] [place] [address] * (ABNORMAL) APTT (PTT) (03/29/2020 11:40 PM CDT) PTT 40(H) 24 - 36 sec 03/30/2020 12:04 AM CDT [facility] Blood Venous Catheter (IV) / Unknown 03/29/2020 11:40 PM CDT 03/29/2020 11:48 PM CDT Narrative [facility] - 03/30/2020 12:04 AM CDT Therapeutic range for unfractionated heparin at 0.3-0.7 U/mL is an aPTT value in the range of 71-100 seconds. Critical value for the PTT test is >= 122 seconds. Azeem Thomas MD HEMATOLOGY ORDERABLES Final Res ult Performing Organization Address City/[facility]/ZIP Co de Phone Number [facility]1 [facility] [address] * EKG 12 LEAD (03/29/2020 11:30 PM CDT) Ventricular Rate BPM EXTERNAL EKG Atrial Rate BPM EXTERNAL EKG P-R Interval ms EXTERNAL EKG QRS Duration 140 ms EXTERNAL EKG Q-T Duration 430 ms EXTERNAL EKG QTC CALCULATION 484 ms EXTERNAL EKG P [employer] degrees EXTERNAL EKG R [employer] 10 degrees EXTERNAL EKG T [employer] 81 degrees EXTERNAL EKG 03/29/2020 11:3 0 PM CDT Impressions EXTERNAL EKG - 03/30/2020 1:37 PM CDT Atrial fibrillation LBBB Comparison Summary: No serial comparison made Summary: Abnormal ECG Confirmed by Jose Bhagat [id number] on 03/30/2020 1:37:43 PM Narrative Procedure Note Jihan Garcia MD - 03/30/2020 IMPRESSION: Atrial fibrillation LBBB Comparison Summary: No serial comparison made Summary: Abnormal ECG Confirmed by Jose Bhagat [id number] on 03/30/2020 1:37:43 PM Azeem Thomas MD IMG ECG ORDERABLES Final Result EXTERNAL EKG * Culture, Grp A Streptococcus, Cult Only (03/29/2020 11:24 PM CDT) CULTURE RESULTS NO STREP PYOGENES (GROUP A BETA HEMOLYTIC STREP) ISOLATED AFTER 2 DAYS 04/01/2020 9:22 AM CDT [facility] Culture STRUCTURE OF ANTERIOR PORTION OF NECK / Unknown Non-Phlebotomy Collection / Unknown 03/29/2020 11:24 PM CDT 03/30/2020 12:07 AM CDT Azeem Thomas MD MICROBIOLOGY - GENERAL ORDERABL ES Edited Result - Final [facility] [address] [place] [address], [place] * POCT Group A Strep Screen Rapid (03/29/2020 11:24 PM CDT) POC STREP SCRN Presumptive negative POC STREP SCREEN CONTROL Student Worker Pass 03/29/2020 11:2 4 PM CDT Azeem Thomas MD POINT OF CARE TESTING (MANUAL) Final Result documented in this encounter Visit Diagnoses Diagnosis Hemoptysis- Primary Hemoptysis, unspecified documented in this encounter Additional Health Concerns Assessment Noted Time PHQ-9 Depression Total Score: 1 12/14/19 20 2:55 PM SPINNERET PERSON documented as of this encounter Care Teams Plumber And Tinner Relationship Specialty Start Date End Date Oswaldo Serrano MD #[address] [address] PCP - General Family Medicine 05/19/17 Angel Crowe DPM #[address] [address] Consulting Physician Podiatry 06/16/17 Mroa Fritz Behavioral Health Navigator 06/15/18 documented as of this encounter
--- OUTSIDE RECORDS SUMMARY | 2024-10-07 00:30 | XMS_ITS | Encounter Summary ---
Author Organization [facility] Address [address] [place] [address] Phone Care Team Providers Care Parking Lot Attendant Name Role Phone Oswaldo Serrano MD Primary Care Provider Angel Crowe DPM Unavailable [phone] Mora Fritz Unavailable Unavailable Encounter Details Date Type Department Care Team (Late st Contact Info) Description 06/02/2020 Telephone [facility] #2 [place] [phone] Oswaldo Serrano MD #[address] [address] Social History Tobacco Use Types Packs/Day Years [...] Telephone Encounter - Oswaldo Serrano MD - 06/02/2020 3:53 PM CDT Yes, that's fine. Thanks! * Telephone Encounter - Tina Banuelos RN - 06/02/2020 3:51 PM CDT Patient's sister (PRD) calling back for test results. She is wanting to make sure it is ok for patient to keep her appointment that is scheduled with provider on 06/09/20. * Telephone Encounter - Ebony Hummel RN - 06/02/2020 9:07 AM CDT Called pt LMOM please give pt message. * Telephone Encounter - Ebony Hummel RN - 06/02/2020 9:07 AM CDT ----- Message from Oswaldo Serrano MD sent at 05/31/2020 11:13 PM CDT ----- Let her know the COVID test is negative. Thanks! documented in this encounter Plan of Treatment Upcoming Encounters Date Type Department Care Team (Late st Contact Info) Description 10/08/2024 2:15 PM CARE MANAGER Office Visit [facility]YSICIAN GROUP UROLOGY #2 [place] [address] Orlin Urbina APRN, SUPERVISOR CELL MAINTENANCE #2 [facility] [place] [address] 10/18/2024 2:15 PM CARE MANAGER Appointment [facility] Mammography 1 [place] [address] Oswaldo Serrano MD #[address] [address] Discharge Disposition: Discharged to home or Selfcare 11/29/2024 2:30 PM CARE MANAGER Office Visit [facility] - [place] #2 [place] [address] Oswaldo Serrano MD #[address] [address] 11/30/2024 3:00 PM CARE MANAGER Office Visit [facility] End[facility] - [place] #2 [place] [address] Ok Jorge MD #[address] [address] documented as of this encounter Visit Diagnoses Not on filedocumented in this encounter Additional Health Concerns Assessment Noted Time PHQ-9 Depression Total Score: 0 04/07/20 20 3:34 PM CDT documented as of this encounter Care Teams Parking Lot Attendant Relationship Specialty Start Date End Date Oswaldo Serrano MD #[address] [address] PCP - General Family Medicine 05/19/17 Angel Crowe DPM #[address] [address] Consulting Physician Podiatry 06/16/17 Mora Fritz Behavioral Health Navigator 06/15/18 documented as of this encounter
--- OUTSIDE RECORDS SUMMARY | 2024-10-07 00:30 | XMS_ITS | Encounter Summary ---
Author Organization [employer] Care Team Providers Care Egg Producer Name Role Phone Oswaldo Serrano MD Primary Care Provider [phone] Angel Crowe DPM Unavailable [phone] Mora Fritz Unavailable Unavailable Encounter Details Date Type Department Care Team (Latest Contact Info) Description 03/18/2020 Travel Social History Tobacco Use Types Packs/Day [...] st Contact Info) Description 10/08/2024 2:15 PM WEB WEAVER Office Visit [facility]YSICIAN GROUP UROLOGY #2 [place] [address] Orlin Urbina OPTICAL GOODS DRILL OPERATOR, MANAGER ANALYSIS #2 [place] [address] 10/18/2024 2:15 PM WEB WEAVER Appointment [facility] Mammography 1 [place] [address] Oswaldo Serrano MD #[address] [address] Discharge Disposition: Discharged to home or Selfcare 11/29/2024 2:30 PM WEB WEAVER Office Visit [facility] - [place] #2 [place] [address] Oswaldo Serrano MD #[address] [address] 11/30/2024 3:00 PM WEB WEAVER Office Visit [facility] End[facility] - [place] #2 [place] [address] Ok Jorge MD #[address] [place] [address] documented as of this encounter Visit Diagnoses Not on filedocumented in this encounter Additional Health Concerns Assessment Noted Time PHQ-9 Depression Total Score: 1 12/14/19 20 2:55 PM WEB WEAVER documented as of this encounter Care Teams Egg Producer Relationship Specialty Start Date End Date Oswaldo Serrano MD #[address] [address] PCP - General Family Medicine 05/19/17 Angel Crowe DPM #[address] [address] Consulting Physician Podiatry 06/16/17 Mora Fritz Behavioral Health Navigator 06/15/18 documented as of this encounter
--- OUTSIDE RECORDS SUMMARY | 2024-10-07 00:30 | XMS_ITS | Encounter Summary ---
Author Organization [facility] Address [address] [place] [address] Phone Care Team Providers Care Car Rider Name Role Phone Oswalod Serrano MD Primary Care Provider Angel Crowe DPM Unavailable [phone] Mora Fritz Unavailable Unavailable Reason for Visit * Reason Comments ED Follow-up Encounter Details Date Type Department Care Team (Late st Contact Info) Description 07/11/2020 1:30 PM CDT Telemedicine [facility] #2 [place] [address] Connor Yuan, BOTTLE MACHINE OPERATOR, CHIPPER FEEDER #[address] [address] Acute diarrhea (Primary Dx) Social History Tobacco Use Types [...] as of this encounter Progress Notes * Rama Isabel Jae - 07/11/2020 1:30 PM CDT Loretta Penn, 59 y.o., female [...] 2 times daily. 05/06/17 Nica Muniz MD dilTIAZem (CARDIZEM) 30 MG Tablet TK 1 T PO TID 04/28/17 Nica Muniz MD diphenhydrAMINE (BENADRYL) 25 MG Tablet Take 25 mg by mouth every 6 hours as needed for Itching or Sleep. 05/24/17 Nica Muniz MD ergocalciferol (VITAMIN D) 22680 UNIT Capsule Take 1 Cap by mouth once a week. 04/08/20 Connor Yuan APN, CHIPPER FEEDER escitalopram (LEXAPRO) 10 MG Tablet TAKE 1 TABLET BY MOUTH DAILY. 10/01/19 Oswaldo Serrano MD fluticasone (FLONASE) 50 MCG/ACT Suspension 2 Sprays by Nasal route daily. Use in each nostril as directed. 04/07/20 Connor Yuan APN, CHIPPER FEEDER furosemide (LASIX) 40 MG Tablet TK 1 T PO BID 04/29/17 Nica Muniz MD Glucose Blood Strip Test blood glucose 4x daily. E11.9, insulin dependent 03/26/20 Ok Jorge MD insulin lispro (HUMALOG) 100 UNIT/ML Solution INJECT 10 UNITS AT BREKFAST, 5 UNITS AT LUNCH AND 10 UNITS AT DINNER --- CORRECTIONAL FACTOR INSULIN OF 1:25 UP TO 40 UNITS PER DAY 11/19/19 Ok Jorge MD Insulin Pen Needle (PEN [...] Solution INJECT 16 UNITS EVERY MORNING. 11/19/19 Ok Jorge MD levothyroxine (SYNTHROID) 50 MCG Tablet TAKE ONE TABLET DAILY IN THE MORNING ON AN EMPTY STOMACH 10/29/19 Oswaldo Serrano MD lisinopril (PRINIVIL, ZESTRIL) 5 MG Tablet TAKE 1 TABLET BY MOUTH DAILY. 02/14/20 Oswaldo Serrano MD nortriptyline (PAMELOR) 10 MG Capsule TAKE 1 CAPSULE DAILY 09/17/19 Tom Quach MD omeprazole (PRILOSEC) 20 MG CAPSULE DELAYED RELEASE Take 1 Cap by mouth daily. 02/07/20 Oswaldo Serrano MD oxybutynin (DITROPAN) 5 MG Tablet Take 1 Tab by mouth 2 times daily. 05/19/20 Carson Micehl MD potassium chloride CR (KLORCON) 10 MEQ Tablet Controlled Release 08/18/19 Nica Muniz MD potassium chloride SA (KLORCON M) 20 MEQ Tablet Controlled Release 04/30/20 Nica Muniz MD rivaroxaban (XARELTO) 20 MG Tablet Take 20 mg by mouth daily (with dinner). Take with food. Nica Muniz MD There are no discontinued [...] Smear 06/06/2020 ??? Influenza Immunization (1) 06/10/2020 Orders Pended: no The following BPA's have been addressed with the patient today: No BPAs due to video visit. * Connor Yuan APN, CHIPPER FEEDER - 07/11/2020 1:30 PM CDT Patient was assessed via online video for a duration of 7 minutes. Patient verbally consented for this service to be performed and billed. HPI: Loretta Penn is a 59 y.o. female evaluated today for ER F/U for diarrhea. Over the past week or to use been having some diarrhea. [facility] ER. Testing was negative. No fever, chills, weight loss, or appetite change. No blood in stool. No recent antibiotic use. No other ill persons. No exposure to coronavirus. Is having some pain in the left upper quadrant and was apparently kind of tender there. Was told to take Imodium and her symptoms have begun to improve somewhat. Current Outpatient Medications: ??? ASPIR-LOW 81 MG Tablet Delayed Response ??? Blood Glucose Monitoring Suppl Device ??? carvedilol (COREG) 25 MG Tablet ??? dilTIAZem (CARDIZEM) 30 MG Tablet ??? diphenhydrAMINE (BENADRYL) 25 MG Tablet ??? ergocalciferol (VITAMIN D) [address] UNIT Capsule ??? escitalopram (LEXAPRO) 10 MG Tablet ??? fluticasone (FLONASE) 50 MCG/ACT Suspension ??? furosemide (LASIX) 40 MG Tablet ??? Glucose Blood Strip ??? insulin lispro (HUMALOG) 100 UNIT/ML Solution ??? Insulin Pen Needle (PEN NEEDLES 31GX5/16 ) 31G X 8 MM Misc ??? Insulin Syringe-Needle U-100 (TRUEPLUS INSULIN SYRINGE) 31G X 5/16 0.5 ML Misc ??? Lancets Misc ??? LANTUS 100 UNIT/ML Solution ??? levothyroxine (SYNTHROID) 50 MCG Tablet ??? [...] in the HPI. Plan: ICD-10-CM 1. Acute diarrhea R19.7 Follow Up: Loretta was asked to follow up with Connor Yuan APN, CNP in 7 day(s). Education materials sent via the patient's [employer] account. documented in this encounter Plan of Treatment Upcoming Encounters Date Type Department Care Team (Late st Contact Info) Description 10/08/2024 2:15 PM CAFE ASSOCIATE Office Visit [facility] PHYSICIAN GROUP UROLOGY #2 [place] [phone] Orlin Urbina APRN, CNP #2 [place] [address] 10/18/2024 2:15 PM CAFE ASSOCIATE [facility] 1 [place] [address] Oswaldo Serrano MD #[address] [address] Discharge Disposition: Discharged to home or Selfcare 11/29/2024 2:30 PM CAFE ASSOCIATE Office Visit [facility] #2 [facility] [place] [address] Oswaldo Serrano MD #[address] [address] 11/30/2024 3:00 PM CAFE ASSOCIATE Office Visit [facility] - Endocrinology [facility] #2 [place] [address] Ok Jorge MD #[address] [address] documented as of this encounter Visit Diagnoses Diagnosis Acute diarrhea- Primary Diarrhea documented in this encounter Additional Health Concerns Assessment Noted Time PHQ-9 Depression Total Score: 5 06/09/20 20 4:22 PM CDT documented as of this encounter Care Teams Car Rider Relationship Specialty Start Date End Date Oswaldo Serrano MD #[address] [address] PCP - General Family Medicine 05/19/17 Angel Crowe DPM #[address] [address] Consulting Physician Podiatry 06/16/17 Mora Fritz [place] Behavioral Health Navigator 06/15/18 documented as of this encounter
--- OUTSIDE RECORDS SUMMARY | 2024-10-07 00:30 | XMS_ITS | Encounter Summary ---
Author Organization [facility] Address [address] [place] [address] Phone Care Team Providers Care Local Company Refrigerated Truck Driver Name Role Phone Oswaldo Serrano MD Primary Care Provider Angel Crowe DPM Unavailable [phone] Mora Fritz Unavailable Unavailable Reason for Visit * Reason Comments Diarrhea Dizziness Encounter Details Date Type Department Care Team (Late st Contact Info) Description 05/30/2020 12:00 PM CDT Clinical Support [facility] [address] [address] Krista Camejocachorro Mehta [facility] Nurse [place] Flu-like symptoms; Diarrhea, unspecified type; Dizziness Discharge Disposition: Discharged to home or Selfcare [...] as of this encounter Progress Notes * Johanne Culp RN - 05/30/2020 12:00 PM CDT Patient presents to [facility] care in personal car for drive up nasopharyngeal COVID 19 swab. right nare swabbed with no difficulty and patient tolerated well. Written instruction given on care at home, home isolation, and symptoms that would require an ER visit. Specimen sent to [facility] documented in this encounter Plan of Treatment Upcoming Encounters Date Type Department Care Team (Late st Contact Info) Description 10/08/2024 2:15 PM FARM OR RANCH ANIMAL CARETAKER Office Visit [facility] PHYSICIAN [facility] UROLOGY #2 [place] [address] Orlin Urbina, CHIEF OF ANESTHESIOLOGY, BRICKLAYER APPRENTICE #2 [place] [address] 10/18/2024 2:15 PM FARM OR RANCH ANIMAL CARETAKER [facility]ment [facility] 1 [place] [address] Oswaldo Serrano MD #[address] [address] Discharge Disposition: Discharged to home or Selfcare 11/29/2024 2:30 PM FARM OR RANCH ANIMAL CARETAKER Office Visit [facility] #2 [place] [address] Oswaldo Serrano MD #[address] [address] 11/30/2024 3:00 PM FARM OR RANCH ANIMAL CARETAKER Office Visit [facility] Medical Group - Endocrinology [facility] [address] [place] [address] Ok Jorge MD #[address] [facility] [address] [place] [address] documented as of this encounter Procedures Procedure Name Priority Date/Time Associated Diagnosis Comments SARS-COV-2 BY MOLECULAR Routine 05/30/2020 12:01 PM CDT Flu-like symptoms Diarrhea, unspecified type Dizziness documented in this encounter Results * SARS-COV-2 BY PCR (05/30/2020 12:01 PM CDT) SARSCOV2 NOT DETECTED (Reference Range for this test is Not Detected) 05/31/2020 9:28 PM CDT [facility] Swab NASOPHARYNGEAL STRUCTURE / Unknown Non-Phlebotomy Collection / Unknown 05/30/2020 12:01 PM CDT 05/30/2020 12:01 PM CDT Narrative [facility] - 05/31/2020 9:28 PM CDT Authorized Fact Sheets about this test for providers and patients are available at: https://www.fda.gov/medical-devices/gnacikgyl-dyvltggerw-jntflmc-devices/emergen -us e-authorizations us Oswaldo Serrano MD MICROBIOLOGY - GENERAL ORDE ARNALDO Final Result [facility] [address] [place] [address], documented in this encounter Visit Diagnoses Diagnosis Flu-like symptoms Influenza with other respiratory manifestations Diarrhea, unspecified type Dizziness Dizziness and giddiness documented in this encounter Additional Health Concerns Infection Onset Date Last Indicated Resolved Time COVID - 19 05/29/2020 05/30/2020 06/01/2020 4:09 PM CDT Assessment Noted Time PHQ-9 Depression Total Score: 0 06/29/20 20 3:34 PM CDT documented as of this encounter Care Teams Local Company Refrigerated Truck Driver Relationship Specialty Start Date End Date Oswaldo Serrano MD #[address] [address] PCP - General Family Medicine 05/19/17 Angel Crowe DPM #[address] [address] Consulting Physician Podiatry 06/16/17 Mora Fritz Behavioral Health Navigator 06/15/18 documented as of this encounter
--- OUTSIDE RECORDS SUMMARY | 2024-10-07 00:30 | XMS_ITS | Encounter Summary ---
Author Organization [facility] Address [address] [facility] [place] [address] Phone Care Team Providers Care Training And Development Project Leader Name Role Phone Oswaldo Serrano MD Primary Care Provider [phone] Angel Crowe DPM Unavailable [phone] Mora Fritz Unavailable Unavailable Reason for Visit * Reason Onset Date Comments Erroneous Encounter - Disregard 07/18/2020 Encounter Details Date Type Department Care Team (Late st Contact Info) Description 07/18/2020 Telephone [facility] [address] [place] [address] Oswaldo Serrano MD #[address] [address] Erroneous Encounter - Disregard Social History Tobacco [...] Coronavirus / COVID-19? No / Unsure 07/18/2020 11:42 AM CDT documented as of this encounter Miscellaneous Notes * Telephone Encounter - Tina Banuelos RN - 07/18/2020 11:48 AM CDT Opened in error documented in this encounter Plan of Treatment Upcoming Encounters Date Type Department Care Team (Late st Contact Info) Description 10/08/2024 2:15 PM VENEREAL DISEASE CONTROL HEAD Office Visit [facility] PHYSICIAN GROUP UROLOGY #2 [place] [address] Orlin Urbina, TAMALE MAKER, REGISTERED SAFETY ENGINEER #2 [place] [address] 10/18/2024 2:15 PM VENEREAL DISEASE CONTROL HEAD Appointment [facility] Mammography 1 [place] [address] Oswaldo Serrnao MD #[address] [address] Discharge Disposition: Discharged to home or Selfcare 11/29/2024 2:30 PM VENEREAL DISEASE CONTROL HEAD Office [facility] - [place] #2 [place] [address] Oswaldo Serrano MD #2 [facility] [address] [place] [address] 11/30/2024 3:00 PM VENEREAL DISEASE CONTROL HEAD Office Visit [facility] - [place] #2 [place] [address] Ok Jorge MD #2 [facility] [address] [place] [address] documented as of this encounter Visit Diagnoses Not on filedocumented in this encounter Additional Health Concerns Assessment Noted Time PHQ-9 Depression Total Score: 2 07/18/20 20 4:26 PM CDT documented as of this encounter Care Teams Training And Development Project Leader Relationship Specialty Start Date End Date Oswaldo Serrano MD #[address] [address] PCP - General Family Medicine 05/19/17 Angel Crowe DPM #[address] [address] Consulting Physician Podiatry 06/16/17 Mora Fritz Behavioral Health Navigator 06/15/18 documented as of this encounter
--- OUTSIDE RECORDS SUMMARY | 2024-10-07 00:30 | XMS_ITS | Encounter Summary ---
Author Organization [facility] Address [address] [place] [address] Phone Care Team Providers Care Contract Admin Name Role Phone Oswaldo Serrano MD Primary Care Provider Angel Crowe DPM Unavailable Mora Fritz Unavailable Unavailable Reason for Visit * Reason Onset Date Comments Appointment 05/29/2020 Encounter Details Date Type Department Care Team (Late st Contact Info) Description 05/29/2020 Telephone [facility] Family [facility] #2 [place] [address] Oswaldo Serrano MD #[address] [address] Appointment Social History Tobacco Use Types Packs/Day [...] Notes * Telephone Encounter - Tina Benitez - 06/02/2020 12:51 PM CDT LVM for patient to call office back in order to get 1 wk f/u scheduled with PCP care team * Telephone Encounter - Oswaldo Serrano MD - 05/29/2020 5:15 PM CDT Schedule her to see me or Connor Yuan NP next week. Thanks! documented in this encounter Plan of Treatment Upcoming Encounters Date Type Department Care Team (Late st Contact Info) Description 10/08/2024 2:15 PM DIRECTOR OF SOCIAL WORK Office Visit [facility] PHYSICIAN GROUP UROLOGY #2 [place] [address] Orlin Urbina, AIR GRINDER, CHIEF ULTRASOUND TECHNOLOGIST #2 [place] [address] 10/18/2024 2:15 PM DIRECTOR OF SOCIAL WORK Appointment [facility] Mammography 1 [place] [address] Oswaldo Serrano MD #[address] [address] Discharge Disposition: Discharged to home or Selfcare 11/29/2024 2:30 PM DIRECTOR OF SOCIAL WORK Office Visit [facility] - Family Medicine [facility] #2 [place] [address] Oswaldo Serrano MD #[address] [address] 11/30/2024 3:00 PM DIRECTOR OF SOCIAL WORK Office Visit [facility] - Endocrinology - [place] #2 [place] [address] Ok Jorge MD #[address] [address] documented as of this encounter Visit Diagnoses Not on filedocumented in this encounter Additional Health Concerns Infection Onset Date Last Indicated Resolved Time COVID - 19 05/29/2020 05/30/2020 06/01/2020 4:09 PM CDT Assessment Noted Time PHQ-9 Depression Total Score: 0 04/07/20 3:34 PM CDT documented as of this encounter Care Teams Contract Admin Relationship Specialty Start Date End Date Oswaldo Serrano MD #[address] [address] PCP - General Family Medicine 05/19/17 Angel Crowe DPM #[address] [address] Consulting Physician Podiatry 06/16/17 Mora Fritz Behavioral Health Navigator 06/15/18 documented as of this encounter
--- OUTSIDE RECORDS SUMMARY | 2024-10-07 00:30 | XMS_ITS | Encounter Summary ---
Author Organization [facility] Address [address] [place] [address] Phone Care Team Providers Care Kiln Loader Name Role Phone Oswaldo Jimenez MD Primary Care Provider [phone] Angel Crowe DPM Unavailable [phone] Mora Fritz Unavailable Unavailable Reason for Visit * Reason Onset Date Comments Medication Refill Medication Refill 01/31/2020 Encounter Details Date Type Department Care Team (Late st Contact Info) Description 01/30/2020 Refill [facility] - Family Medicine [facility] #2 [place] [address] Oswaldo Jimenez MD #[address] [address] Medication Refill; Medication Refill Social History Tobacco [...] encounter Miscellaneous Notes * Addendum Note - Oswaldo Jimenez MD - 01/31/2020 3:03 PM CDTAddended by: OSWALDO JIMENEZ on: 01/31/2020 03:03 PM Modules accepted: Orders * Telephone Encounter - Siobhan Ledezma RN - 01/31/2020 2:47 PM CDT Only thing available is cimetidine(200, 300, 400, 800). 300 mg would equal the 150 axid. * Telephone Encounter - Oswaldo Jimenez MD - 01/31/2020 1:09 PM CDT Please check with pharmacy to see what similar medication is available. Thanks! * Telephone Encounter - Amina Nicolas RN - 01/31/2020 12:51 PM CDT Pharmacy states Axid is not available. Please advise * Telephone Encounter - Oswaldo Jimenez MD - 01/30/2020 4:20 PM CDT I have already switched her to Axid. Thanks! * Telephone Encounter - Amina Nicolas RN - 01/30/2020 4:12 PM CDT Ranitidine has been recalled. Please send an alternative. Thank you! documented in this encounter Plan of Treatment Upcoming Encounters Date Type Department Care Team (Late st Contact Info) Description 10/08/2024 2:15 PM OFFICE ELECTRICIAN Office Visit [facility] PHYSICIAN [facility] UROLOGY #2 [place] [address] Orlin Urbina, DIRECTOR BUSINESS DEVELOPMENT, DRAMATIC ART TEACHER #2 [place] [address] 10/18/2024 2:15 PM OFFICE ELECTRICIAN [facility]ment [facility] M[facility] 1 [place] [address] Oswaldo Jimenez MD #[address] [address] Discharge Disposition: Discharged to home or Selfcare 11/29/2024 2:30 PM OFFICE ELECTRICIAN [facility] Visit [facility] - Family Medicine - [place] #2 [place] [address] Oswaldo Jimenez MD #[address] [address] 11/30/2024 3:00 PM OFFICE ELECTRICIAN Office Visit [facility] - Endocrinology - [place] #2 [place] [address] Ok Jorge MD #[address] [place] [address] documented as of this encounter Visit Diagnoses Not on filedocumented in this encounter Additional Health Concerns Assessment Noted Time PHQ-9 Depression Total Score: 1 12/14/19 20 2:55 PM OFFICE ELECTRICIAN documented as of this encounter Care Teams Kiln Loader Relationship Specialty Start Date End Date Oswaldo Jimenez MD #[address] [address] PCP - General Family Medicine 05/19/17 Angel Crowe DPM #[address] [address] Consulting Physician Podiatry 06/16/17 Mora Fritz Behavioral Health Navigator 06/15/18 documented as of this encounter
--- OUTSIDE RECORDS SUMMARY | 2024-10-07 00:30 | XMS_ITS | Encounter Summary ---
Author Organization [facility] Care Team Providers Care Laboratory Apparatus Glass Blower Name Role Phone Oswaldo Serrano MD Primary Care Provider [phone] Angel Crowe DPM Unavailable [phone] Mora Fritz Unavailable Unavailable Encounter Details Date Type Department Care Team (Latest Contact Info) Description 06/27/2020 Travel Social History Tobacco Use Types Packs/Day [...] st Contact Info) Description 10/08/2024 2:15 PM GARMENT PRESSER Office Visit [facility] PHYSICIAN GROUP UROLOGY #2 [place] [address] Orlin Urbina LOCOMOTIVE CRANE OPERATOR HELPER, WIPING CLOTH CUTTER #2 [place] [address] 10/18/2024 2:15 PM GARMENT PRESSER Appointment [facility] Mammography 1 [place] [address] Oswaldo Serrano MD #[address] [address] Discharge Disposition: Discharged to home or Selfcare 11/29/2024 2:30 PM GARMENT PRESSER Office Visit [facility] - Family Medicine - [place] #2 [place] [address] Oswaldo Serrano MD #[address] [address] 11/30/2024 3:00 PM GARMENT PRESSER Office Visit [facility] - Endocrinology - [place] #2 [place] [address] Ok Jorge MD #[address] [address] documented as of this encounter Visit Diagnoses Not on filedocumented in this encounter Additional Health Concerns Assessment Noted Time PHQ-9 Depression Total Score: 5 06/09/20 20 4:22 PM CDT documented as of this encounter Care Teams Laboratory Apparatus Glass Blower Relationship Specialty Start Date End Date Oswaldo Serrano MD #[address] [address] PCP - General Family Medicine 05/19/17 Angel Crowe DPM #[address] [address] Consulting Physician Podiatry 06/16/17 Mora Fritz Behavioral Health Navigator 06/15/18 documented as of this encounter
--- OUTSIDE RECORDS SUMMARY | 2024-10-07 00:30 | XMS_ITS | Encounter Summary ---
Author Organization [facility] Address [address] [place] [address] Phone Care Team Providers Care Animal Maintenance Supervisor Name Role Phone Oswaldo Serrano MD Primary Care Provider [phone] Angel Crowe DPM Unavailable [phone] Mora Fritz Unavailable Unavailable Reason for Visit * Reason Onset Date Comments Labs Only 03/18/2020 Appointment 03/18/2020 Encounter Details Date Type Department Care Team (Late st Contact Info) Description 03/18/2020 Telephone [facility] #2 [place] [address] Oswaldo Serrano MD #[address] [address] Labs Only; Appointment Social History Tobacco Use Types Packs/Day [...] encounter Miscellaneous Notes * Telephone Encounter - Siobhan Ledezma RN - 03/19/2020 2:36 PM CDT Patient notified and verbalized understanding. * Telephone Encounter - Mica Douglas RN - 03/19/2020 2:20 PM CDT Left message for patient to call the office. Faxed UA order to [facility] at [phone]. * Telephone Encounter - Oswaldo Serrano MD - 03/18/2020 9:04 PM CDT Please fax UA lab order to [facility] lab in [place]. Schedule her to see me in 3 months. Thanks! documented in this encounter Plan of Treatment Upcoming Encounters Date Type Department Care Team (Late st Contact Info) Description 10/08/2024 2:15 PM LEATHER GRADER Office Visit [facility]YSICIAN GROUP UROLOGY #2 [place] [address] Orlin Urbina, FIELD MARKETING 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, FIRST DYER #2 [place] [address] 10/18/2024 2:15 PM LEATHER GRADER [facility] M[facility] 1 [place] [address] Oswaldo Serrano MD #[address] [address] Discharge Disposition: Discharged to home or Selfcare 11/29/2024 2:30 PM LEATHER GRADER Office [facility] #2 [place] [address] Oswaldo Serrano MD #[address] [address] 11/30/2024 3:00 PM LEATHER GRADER [facility] Visit [facility] - [facility]2 [place] [address] Ok Jorge MD #[address] [address] documented as of this encounter Visit Diagnoses Not on filedocumented in this encounter Additional Health Concerns Assessment Noted Time PHQ-9 Depression Total Score: 1 12/14/19 20 2:55 PM LEATHER GRADER documented as of this encounter Care Teams Animal Maintenance Supervisor Relationship Specialty Start Date End Date Oswaldo Serrano MD #[address] [address] PCP - General Family Medicine 05/19/17 Angel Crowe DPM #[address] [place] [address] Consulting Physician Podiatry 06/16/17 Mora Fritz Behavioral Health Navigator 06/15/18 documented as of this encounter
--- OUTSIDE RECORDS SUMMARY | 2024-10-07 00:30 | XMS_ITS | Encounter Summary ---
Author Organization [facility] Address [address] [place] [address] Phone Care Team Providers Care [facility] Shift Lead Name Role Phone Oswaldo Serrano MD Primary Care Provider [phone] Angel Crowe DPM Unavailable [phone] Mora Fritz Unavailable Unavailable Reason for Visit * Reason Onset Date Comments Results 12/21/2019 Encounter Details Date Type Department Care Team (Late st Contact Info) Description 12/21/2019 Telephone [facility] - [place] #2 [facility] [place] [address] Ok Jroge MD #[address] [address] Results Social History Tobacco Use [...] Telephone Encounter - Ynes Zuniga RN - 12/24/2019 1:38 PM CDT Voicemail left for patient to return call. * Telephone Encounter - Ok Jorge MD - 12/21/2019 11:49 AM CDT Please inform her that serum fructosamine level was high, which was consistent with high Hb A1c value. documented in this encounter Plan of Treatment Upcoming Encounters Date Type Department Care Team (Late st Contact Info) Description 10/08/2024 2:15 PM RAIL CAR LOADER Office Visit [facility] PHYSICIAN [facility]OLOGY #2 [place] [address] Orlin Urbina APRN, OFFLINE EDITOR #2 [place] [address] 10/18/2024 2:15 PM RAIL CAR LOADER Appointment [facility] Mammography 1 [place] [address] Oswaldo Serrano MD #[address] [address] Discharge Disposition: Discharged to home or Selfcare 11/29/2024 2:30 PM RAIL CAR LOADER Office Visit [facility] - Family Medicine [facility] #2 [place] [address] Oswaldo Serrano MD #[address] [address] 11/30/2024 3:00 PM RAIL CAR LOADER Office Visit [facility] - Endocrinology [facility] #2 [facility] [place] [address] Ok Jorge MD #[address] [address] documented as of this encounter Visit Diagnoses Not on filedocumented in this encounter Additional Health Concerns Assessment Noted Time PHQ-9 Depression Total Score: 1 12/14/19 20 2:55 PM RAIL CAR LOADER documented as of this encounter Care Teams [facility] Shift Lead Relationship Specialty Start Date End Date Oswaldo Serrano MD #[address] [address] PCP - General Family Medicine 05/19/17 Angel Crowe DPM #[address] [address] Consulting Physician Podiatry 06/16/17 Mora Fritz Behavioral Health Navigator 06/15/18 documented as of this encounter
--- OUTSIDE RECORDS SUMMARY | 2024-10-07 00:30 | XMS_ITS | Encounter Summary ---
Author Organization [facility] Care Team Providers Care Junior Project Manager Name Role Phone Oswaldo Serrano MD Primary Care Provider [phone] Angel Crowe DPM Unavailable [phone] Mora Fritz Unavailable Unavailable Encounter Details Date Type Department Care Team (Latest Contact Info) Description 03/29/2020 Travel Social History Tobacco Use Types Packs/Day [...] st Contact Info) Description 10/08/2024 2:15 PM CIRCUIT TESTER Office Visit [facility] PHYSICIAN GROUP UROLOGY #2 [place] [address] Orlin Urbina INDUSTRIAL ENG, WOOL AND PELT GRADER #2 [place] [address] 10/18/2024 2:15 PM CIRCUIT TESTER Appointment [facility] Mammography 1 [place] [address] Oswaldo Serrano MD #[address] [address] Discharge Disposition: Discharged to home or Selfcare 11/29/2024 2:30 PM CIRCUIT TESTER Office Visit [facility] - Family Medicine - [place] #2 [place] [address] Oswaldo Serrano MD #[address] [address] 11/30/2024 3:00 PM CIRCUIT TESTER Office Visit [facility] - Endocrinology - [place] #2 [place] [address] Ok Jorge MD #[address] [place] [address] documented as of this encounter Visit Diagnoses Not on filedocumented in this encounter Additional Health Concerns Assessment Noted Time PHQ-9 Depression Total Score: 1 12/14/19 20 2:55 PM CIRCUIT TESTER documented as of this encounter Care Teams Junior Project Manager Relationship Specialty Start Date End Date Oswaldo Serrano MD #[address] [address] PCP - General Family Medicine 05/19/17 Angel Crowe DPM #[address] [address] Consulting Physician Podiatry 06/16/17 Mora Fritz Behavioral Health Navigator 06/15/18 documented as of this encounter
--- OUTSIDE RECORDS SUMMARY | 2024-10-07 00:31 | XMS_ITS | Encounter Summary ---
Author Organization [facility] Address [address] [place] [address] Phone Care Team Providers Care Soccer Referee Name Role Phone Oswaldo Serrano MD Primary Care Provider Angel Crowe DPM Unavailable Mora Fritz Unavailable Unavailable Encounter Details Date Type Department Care Team (Late st Contact Info) Description 10/15/2019 Telephone [facility] - Family Medicine [facility] #2 [place] [address] Oswaldo Serrano MD #[address] [address] Social History Tobacco Use Types Packs/Day Years Used Date Smoking Tobacco: Never Smokeless Tobacco: Never Alcohol Use Standard Drinks/Week Comments No 0 (1 standard drink = 0.6 oz pur e alcohol) PHQ-2 Answer Date Recorded PHQ-2 Score 2 06/22/2019 Sexually Active Control Partners Comments Never Male Comments No Sex and Gender Information Value Date Recorded Sex Assigned at Not on file Legal Sex Female 3:04 PM CDT Gender Identity Not on file Sexual Orientation Not on file documented as of this encounter Miscellaneous Notes * Telephone Encounter - Oswaldo Serrano MD - 10/15/2019 10:09 AM ARCHEOLOGY FACULTY MEMBER ----- Message from Coleen Anand RN sent at 10/15/2019 9:54 AM ARCHEOLOGY FACULTY MEMBER ----- Sister states she is not sure if she is having symptoms but will have her recheck the lab. She would like to have it done at [place]. Order faxed to [facility] EOLOGY FACULTY MEMBER documented in this encounter Plan of Treatment Upcoming Encounters Date Type Department Care Team (Late st Contact Info) Description 10/08/2024 2:15 PM ARCHEOLOGY FACULTY MEMBER Office Visit [facility] PHYSICIAN GROUP UROLOGY #2 [place] [address] Orlin Urbina, STORAGE CENTER MANAGER, HEALTH CARE LEGAL ASSISTANT #2 [place] [address] 10/18/2024 2:15 PM ARCHEOLOGY FACULTY MEMBER Appointment [facility] Mammography 1 [place] [address] Oswaldo Serrano MD #[address] [address] Discharge Disposition: Discharged to home or Selfcare 11/29/2024 2:30 PM ARCHEOLOGY FACULTY MEMBER Office [facility] - Family Medicine [facility] #2 [place] [address] Oswaldo Serrano MD #[address] [address] 11/30/2024 3:00 PM ARCHEOLOGY FACULTY MEMBER Office Visit [facility] - Endocrinology - [place] #2 [place] [address] Ok Jorge MD #2 [facility] [address] [place] [address] documented as of this encounter Visit Diagnoses Not on filedocumented in this encounter Additional Health Concerns Assessment Noted Time PHQ-9 Depression Total Score: 2 06/22/20 19 3:45 PM CDT documented as of this encounter Care Teams Soccer Referee Relationship Specialty Start Date End Date Oswaldo Serrano MD #[address] [address] PCP - General Family Medicine 05/19/17 Angel Crowe DPM #[address] [address] Consulting Physician Podiatry 06/16/17 Mora Fritz Behavioral Health Navigator 06/15/18 documented as of this encounter
--- OUTSIDE RECORDS SUMMARY | 2024-10-07 00:31 | XMS_ITS | Encounter Summary ---
Author Organization [facility] Address [address] [place] [address] Phone Care Team Providers Care Livestock Speculator Name Role Phone Oswaldo Serrano MD Primary Care Provider Angel Crowe DPM Unavailable Mora Fritz Unavailable Unavailable Reason for Visit * Reason Onset Date Comments Results 10/25/2019 Encounter Details Date Type Department Care Team (Late st Contact Info) Description 10/25/2019 Telephone [facility] [address] [place] [address] Oswaldo Serrano MD #[address] [address] Results Social History Tobacco Use [...] Telephone Encounter - Oswaldo Serrano MD - 10/26/2019 2:57 PM CLINICAL RESEARCH ASSISTANT See result note. Thanks! ICAL RESEARCH ASSISTANT * Telephone Encounter - Mervat Saldana, RN - 10/25/2019 4:21 PM CST Patient sister is calling for the results of the UA the patient had done at [facility] in [place]? Please advise ICAL RESEARCH ASSISTANT documented in this encounter Plan of Treatment Upcoming Encounters Date Type Department Care Team (Late st Contact Info) Description 10/08/2024 2:15 PM CLINICAL RESEARCH ASSISTANT Office Visit [facility] PHYSICIAN [facility] UROLOGY #2 [place] [address] Orlin Urbina APRN, SUBSCRIPTION CLERK #2 [place] [address] 10/18/2024 2:15 PM CLINICAL RESEARCH ASSISTANT Appointment [facility] Mammography 1 [place] [address] Oswaldo Serrano MD #[address] [address] Discharge Disposition: Discharged to home or Selfcare 11/29/2024 2:30 PM CLINICAL RESEARCH ASSISTANT [facility] - [facility] #2 [place] [address] Oswaldo Serrano MD #[address] [address] 11/30/2024 3:00 PM CLINICAL RESEARCH ASSISTANT Office [facility] - Endocrinology - [place] #2 [place] [address] Ok Jorge MD [facility]2 [facility] [address] [address] documented as of this encounter Visit Diagnoses Not on filedocumented in this encounter Additional Health Concerns Assessment Noted Time PHQ-9 Depression Total Score: 2 06/22/20 19 3:45 PM CDT documented as of this encounter Care Teams Livestock Speculator Relationship Specialty Start Date End Date Oswaldo Serrano MD [facility] [address] PCP - General Family Medicine 05/19/17 Angel Crowe DPM #[address] [address] Consulting Physician Podiatry 06/16/17 Mora Fritz Behavioral Health Navigator 06/15/18 documented as of this encounter
--- OUTSIDE RECORDS SUMMARY | 2024-10-07 00:31 | XMS_ITS | Encounter Summary ---
Author Organization [facility] Address [address] [place] [address] Phone Care Team Providers Care Alumina Refinery Operator Name Role Phone Oswaldo Serrano MD Primary Care Provider [phone] Angel Crowe DPM Unavailable [phone] Mora Fritz Unavailable Unavailable Reason for Referral * Consult, Test & Initiate Treatment (Less Than 4 Weeks) - Closed Specialty Diagnoses / Procedures Referred By Praful ferro Referred To Contact Urology Diagnoses Hematuria, unspecified type Oswaldo Serrano MD [address] [address] Phone: tel: fax: [facility] [address] [place] [address] Phone: tel: fax: Referral ID Status Reason Start Date Expiration Date Visits Re quested Visits Authorized [id number] Closed 10/26/2019 1 1 Scheduling Instructions Loretta is being referred for hematuria. See below for Loretta's current medications, allergies and problem list. Please contact patient for scheduling questions or concerns. CURRENT MEDS: Current Outpatient Medications: ASPIR-LOW 81 MG Tablet Delayed Response, , Disp: , Rfl: carvedilol (COREG) 25 MG Tablet, 25 mg 2 times daily., Disp: , Rfl: dilTIAZem (CARDIZEM) 30 MG Tablet, TK 1 T PO TID, Disp: , Rfl: 0 diphenhydrAMINE (BENADRYL) 25 MG Tablet, Take 25 mg by mouth every 6 hours as needed for Itching or Sleep., Disp: , Rfl: docusate sodium (COLACE) 100 MG Capsule, TAKE ONE CAPSULE TWICE DAILY, Disp: 180 Cap, Rfl: 3 escitalopram (LEXAPRO) 10 MG Tablet, TAKE 1 TABLET BY MOUTH DAILY., Disp: 90 Tab, Rfl: 3 furosemide (LASIX) 40 MG Tablet, TK 1 T PO BID, Disp: , Rfl: 2 Glucose Blood (TRUE METRIX BLOOD GLUCOSE TEST) Strip, Test four times daily, Disp: 400 Strip, Rfl: 3 insulin glargine (LANTUS) 100 UNIT/ML Solution, 16 Units by Subcutaneous route every morning., Disp: 20 mL, Rfl: 1 insulin lispro (HUMALOG) 100 UNIT/ML Solution, 12 units at breakfast, 10 units at lunch and 14 units at dinner. Correctional factor insulin of 1:30. Up to 60 units per day, Disp: 20 mL, Rfl: 3 Insulin Pen Needle (PEN NEEDLES 31GX5/16 ) 31G X 8 MM Misc, Three times a day, Disp: 300 Each, Rfl: 3 Insulin Syringe-Needle U-100 (INSULIN SYRINGE .5CC/31GX5/16 ) 31G X 5/16 0.5 ML Misc, 4 times a day, Disp: 400 Each, Rfl: 3 Lancets Misc, Test four times daily, Disp: 400 Lancet, Rfl: 3 levothyroxine (SYNTHROID) 50 MCG Tablet, TAKE ONE TABLET DAILY IN THE MORNING ON AN EMPTY STOMACH, Disp: 90 Tab, Rfl: 3 lisinopril (PRINIVIL, ZESTRIL) 5 MG Tablet, Take 1 Tab by mouth daily., Disp: 90 Tab, Rfl: 1 nortriptyline (PAMELOR) 10 MG Capsule, TAKE 1 CAPSULE DAILY, Disp: 90 Cap, Rfl: 3 oxybutynin (DITROPAN) 5 MG Tablet, TAKE ONE TABLET DAILY, Disp: 90 Tab, Rfl: 3 potassium chloride CR (KLORCON) 10 MEQ Tablet Controlled Release, , Disp: , Rfl: raNITIdine (ZANTAC) 150 MG Tablet, TAKE ONE TABLET TWICE DAILY, Disp: 180 Tab, Rfl: 3 rivaroxaban (XARELTO) 20 MG Tablet, Take 20 mg by mouth daily (with dinner). Take with food., Disp: , Rfl: No current facility-administered medications [...] of cardiac defibrillator Elevated LFTs Urinary frequency IER ASSOCIATE Encounter Details Date Type Department Care Team (Late st Contact Info) Description 10/26/2019 Telephone [facility] - Family [facility] #2 [place] [address] Oswaldo Serrano MD #[address] [address] Social History Tobacco Use Types Packs/Day Years [...] Telephone Encounter - Oswaldo Serrano MD - 10/27/2019 11:56 PM CARRIER ASSOCIATE DONE. IER ASSOCIATE documented in this encounter Plan of Treatment Upcoming Encounters Date Type Department Care Team (Late st Contact Info) Description 10/08/2024 2:15 PM CARRIER ASSOCIATE Office Visit [facility] #2 [place] [address] Orlin Urbina APRN, COMPONENT ASSEMBLER #2 [place] [address] 10/18/2024 2:15 PM CARRIER ASSOCIATE Appointment [facility] 1 [place] [id number] Oswaldo Serrano MD #[address] [address] Discharge Disposition: Discharged to home or Selfcare 11/29/2024 2:30 PM CARRIER ASSOCIATE Office Visit [facility] - [place] #2 [place] [address] Oswaldo Serrano MD #2 [facility] [address] [place] [address] 11/30/2024 3:00 PM CARRIER ASSOCIATE Office Visit [facility] - Endocr[facility]ology - [place] #2 [place] [address] Ok Jorge MD #2 [facility] [address] [place] [address] Scheduled Referrals Name Type Priority Associated Diagnoses Order Schedule UROLOGY REFERRAL Outpatient Referral Less Than 4 weeks Hematuria, unspecified type Expected: 10/26/2019 (Approximate), Expires: 10/26/2020 documented as of this encounter Visit Diagnoses Diagnosis Hematuria, unspecified type- Primary documented in this encounter Additional Health Concerns Assessment Noted Time PHQ-9 Depression Total Score: 2 06/22/20 19 3:45 PM CDT documented as of this encounter Care Teams Alumina Refinery Operator Relationship Specialty Start Date End Date Oswaldo Serrano MD #2 [facility] [place] [address] PCP - General Family Medicine 05/19/17 Angel Crowe DPM #2 [facility] [place] [address] Consulting Physician Podiatry 06/16/17 Mora Fritz Behavioral Health Navigator 06/15/18 documented as of this encounter
--- OUTSIDE RECORDS SUMMARY | 2024-10-07 00:31 | XMS_ITS | Encounter Summary ---
Author Organization [facility] Address [address] [place] [address] Phone Care Team Providers Care Fashion Illustrator Name Role Phone Oswaldo Serrano MD Primary Care Provider Angel Crowe DPM Unavailable Mora Fritz Unavailable Unavailable Reason for Visit * Reason Comments Blood sugar problem Follow up Encounter Details Date Type Department Care Team (Late st Contact Info) Description 12/14/2019 3:45 PM CLEANER TOUCH UP WORKER Office [facility] - [facility]ology - [place] #[address] [place] [address] Ok Maldonado MD #[address] [address] Type 2 diabetes mellitus treated [...] Sign Reading Time Taken Comments Blood Pressure 110/72 12/14/2019 3:44 PM CLEANER TOUCH UP WORKER Pulse 75 12/14/2019 3:44 PM CLEANER TOUCH UP WORKER Temperature 36.2 ??C (97.1 ??F) 12/14/2019 3:44 PM CS T Respiratory Rate 18 12/14/2019 3:44 PM CLEANER TOUCH UP WORKER Oxygen Saturation 95% 12/14/2019 3:44 PM CLEANER TOUCH UP WORKER Inhaled Oxygen Concentration - - Weight 120.7 kg (266 lb) 12/14/2019 3:44 PM CLEANER TOUCH UP WORKER Height 167.6 cm (5' 6 ) 12/14/2019 3:44 PM CLEANER TOUCH UP WORKER Body Mass Index 42.93 12/14/2019 3:44 PM CLEANER TOUCH UP WORKER documented in this encounter Patient Instructions * Patient Instructions* Ok Maldonado MD - 12/14/2019 3:45 PM CLEANER TOUCH UP WORKER Please take Lantus 16 units in the evening Please take Humalog 10-5-10 units before each meal Please use correctional [...] 400 ??+10 UNITS > 400 ??+11 UNITS NER TOUCH UP WORKER documented in this encounter Progress Notes * Lucila Panda CMA - 12/14/2019 3:45 PM CST Patient was seen in office today and finger stick was obtained on right index finger for A1C, Patient tolerated well. NER TOUCH UP WORKER * kO Maldonado MD - 12/14/2019 3:45 PM CST CC: Hyperglycemia Loretta Penn is a 58-year-old woman who comes to the Endocrinology office to discuss management of type 2 diabetes mellitus. The patient's diabetes is complicated by lower extremity sensory neuropathyOther pertinent health history includes hypertension, dyslipidemia, and obesity. The patient was initially diagnosed with diabetes approximately >10 years ago. Currently, the patient takes Lantus 16 units at bedtime, Humalog 10 units with breakfast, 5 units with lunch, and 10 units with supper for management of hyperglycemia. The patient denied low blood sugar event or severe hypoglycemia requiring third democrat intervention. Her sister reports that the patient's blood glucose had been running high, but it has been improved several weeks ago after her teeth pulled out for preparation of denture. She has poor appetite due to discomfort and pain. Review of her capillary blood glucose log for the past two weeks showed morning values in the range of 90 to130 mg/dL, lunch values ranging from 100 to 160 mg/dL, dinner values in the range of 110 to 150 mg/dL. Hemoglobin A1c obtained by POC testing today was 9.2%, increased from the previous measurement of 7.8% obtained in January 2019. Diabetes related complication surveillance 1. No history of diabetic retinopathy - the last dilated eye exam was in 2016 2. (+) symptoms of peripheral sensory neuropathy 3. Urine microalbumin/creatinine ratio - <30 in October 2018, currently on lisinopril 10 mg daily 4. BP 110/72 mmHg 5. LDL - 65 mg/dL in May 2017 6. No history of macrovascular disease Review of Systems Constitutional: Negative for activity change, appetite change, and unexpected weight change. (+) poor appetite due to teeth issue HENT: Negative for congestion and sinus pressure. [...] of her teeth ??? WISDOM TOOTH EXTRACTION Vitals: 12/14/19 1544 BP: 110/72 BP Location: Right Arm BP Position: Sitting BP Cuff Size: Large Pulse: 75 Resp: 18 Temp: 97.1 ??F (36.2 ??C) TempSrc: Tympanic SpO2: 95% Weight: 266 lb (120.7 kg) Height: 5' 6 (1.676 m) Objective: Physical Exam Constitutional: appears well-developed and well-nourished. No acute distress. Head: Normocephalic and atraumatic. Eyes: EOM are normal, Not icteric Neck: Normal range of motion, Neck supple Cardiovascular: Normal rate and regular rhythm Pulmonary/Chest: Effort normal and breath sounds normal, No use of accessory muscle, No crackles orwheezing Abdominal: Soft, and not tender, Normal bowel sound, No lipohyperthrophy at injection sites Neurological: Alert and oriented to person, place, and time, CN 2-12 grossly intact Skin: Skin is warm and dry Psychiatric: Normal mood and affect DIAGNOSTIC DATA: Hb A1c checked by POC testing today was 9.2%. Lab Results Component Value Date HGBA1C 7.8 (A) 01/15/2019 HGBA1C 6.7 (A) 10/17/2018 HGBA1C 8.3 (A) 06/07/2018 Lab Results Component Value Date HEMATOCRIT 38.8 09/26/2018 Lab Results Component Value Date CREATININE 0.78 09/08/2017 GFRNA >60 09/08/2017 CALCIUM 9.3 09/08/2017 SGPTALT 14 08/28/2019 Lab Results Component Value Date SODIUM 137 09/08/2017 POTASSIUM 4.0 09/08/2017 CHLORIDE 99 (L) 09/08/2017 CO2VEN 28 09/08/2017 Lab Results Component Value Date CHOLESTEROL 104 (L) 05/26/2017 TRIGLYCRIDES 66 05/26/2017 HDLCHOLESTE 25.8 (L) 05/26/2017 LDL 65 05/26/2017 Lab Results Component Value Date MACRRAND <=56 (H) 10/17/2018 Lab Results Component Value Date TSH 2.590 08/28/2019 Assessment and Plan Loretta Penn is a middle-aged woman with type 2 diabetes mellitus whose glycemic control isreasonable based on review of her capillary blood glucose record. However, hemoglobin A1c is well above the patient's [employer] [employer] treatment target of less than 7%. It suggests that her glycemic control had been poor before her teeth pulled out. Treatment consideration and lifestyle modification were discussed with her and her sister at some length. She will continue current insulin regimen for management of hyperglycemia. The patient will return for office reevaluation in 3 months. PLAN: 1. Continue Lantus 16 units at bedtime 2. Take Humalog 10-5-10 units before each meal 3. Correctional factor insulin dosed at 1:25 if CBG is > 150 mg/dl 4. Monitor blood sugar QAC/QHS 5. Bring CBG log for review 6. Contact Endocrinology Clinic for low blood sugar events 7. RTC in 3 months Obesity PLAN: 1. Low carb and calorie diet 2. Avoid snack and beverage between meal and at bedtime OK MALDONADO MD 12/14/2019 NER TOUCH UP WORKER documented in this encounter Plan of Treatment Upcoming Encounters Date Type Department Care Team (Late st Contact Info) Description 10/08/2024 2:15 PM CLEANER TOUCH UP WORKER Office Visit [facility] #2 [place] [address] Orlin Urbina, EXTRUSION OPERATOR, FLOOR LAYER TILE #2 [place] [address] 10/18/2024 2:15 PM CLEANER TOUCH UP WORKER Appointment [facility] 1 [place] [address] Oswaldo Serrano MD #[address] [address] Discharge Disposition: Discharged to home or Selfcare 11/29/2024 2:30 PM CLEANER TOUCH UP WORKER Office Visit [facility] #2 [place] [address] Oswaldo Serrano MD #[address] [address] 11/30/2024 3:00 PM CLEANER TOUCH UP WORKER [facility] - [place] #2 [place] [address] Ok Maldonado MD #[address] [address] documented as of this encounter Procedures Procedure Name Priority Date/Time Associated Diagnosis Comments POCT GLYCOSYLATED HEMOGLOBIN Routine 12/14/2019 3:54 PM CLEANER TOUCH UP WORKER Type 2 diabetes mellitus treated with insulin (HCC) documented in this encounter Results * (ABNORMAL) FRUCTOSAMINE, CLOUD FRUCT (12/14/2019 5:00 PM CLEANER TOUCH UP WORKER) FRUCTOSAMINE 345(H) 200 - 285 mcmol/L 12/17/2019 12:55 PM CDT [facility] Comment: Test Performed by: [facility] [address] [place] [address] Production Lapping Machine Operator: Josué Box M.D. Ph.D.; CLIA# [id number] Blood specimen (specimen) Venipuncture / Unknown 12/14/2019 5:00 PM CLEANER TOUCH UP WORKER 12/14/2019 5:01 PM CLEANER TOUCH UP WORKER us Ok Maldonado MD LAB SEND OUTS Final Result [facility] [address] [place] [address], * UR MICROALBUMIN/CREATININE RATIO RANDOM (12/14/2019 5:00 PM CLEANER TOUCH UP WORKER) RAN UR MICROALBUMIN <=1.20 <=2.00 mg/dL 12/14/2019 5:30 PM CLEANER TOUCH UP WORKER [facility] CREATININE URINE 90.6 28.0 - 217.0 mg/dL 12/14/2019 5:30 PM CLEANER TOUCH UP WORKER [facility] ALB/CREAT RATIO <=13 1 - 30 mg/g CRE 12/14/2019 5:30 PM CLEANER TOUCH UP WORKER [facility] Urine specimen (specimen) Non-Phlebotomy Collection / Unknown 12/14/2019 5:00 PM CLEANER TOUCH UP WORKER 12/14/2019 5:01 PM CLEANER TOUCH UP WORKER us Ok Maldonado MD URINE ORDERABLES Final Result [facility] #1 [place] [address] * (ABNORMAL) POCT GLYCOSYLATED HEMOGLOBIN (12/14/2019 3:54 PM CLEANER TOUCH UP WORKER) HGB-A1C 9.2(A) 4 - 6 12/14/2019 3:54 PM CLEANER TOUCH UP WORKER us Ok Maldonado MD POINT OF CARE TESTING (MANUAL) F [...] Total Score: 1 12/14/19 20 2:55 PM CLEANER TOUCH UP WORKER documented as of this encounter Care Teams Fashion Illustrator Relationship Specialty Start Date End Date Oswaldo Serrano MD #[address] [address] PCP - General Family Medicine 05/19/17 Angel Crowe DPM #[address] [address] Consulting Physician Podiatry 06/16/17 Mora Fritz Behavioral Health Navigator 06/15/18 documented as of this encounter
--- OUTSIDE RECORDS SUMMARY | 2024-10-07 00:31 | XMS_ITS | Encounter Summary ---
Author Organization [facility] Address [address] [place] [address] Phone Care Team Providers Care Fbi Profiler Name Role Phone Oswaldo Serrano MD Primary Care Provider [phone] Angel Crowe DPM Unavailable Mora Fritz Unavailable Unavailable Ok Jorge MD Unavailable Orlin Urbina APRN, MILL WASHER Unavailable Reason for Visit * Reason Comments Medication Refill Encounter Details Date Type Department Care Team (Late st Contact Info) Description 11/24/2019 Refill [facility] [address] [place] [address] Oswaldo Serrano MD #[address] [address] Medication Refill Social History Tobacco Use Types [...] Telephone Encounter - Amina Nicolas RN - 11/26/2019 8:49 AM REELING AND TUBING MACHINE OPERATOR Requested Prescriptions Pending Prescriptions Disp Refills STOOL SOFTENER LAXATIVE 100 MG Capsule [Pharmacy Med Name: DOCUSATE 100MG CAP] 180 Cap 2 Sig: TAKE ONE CAPSULE TWICE DAILY There is no refill protocol information for this order ING AND TUBING MACHINE OPERATOR documented in this encounter Plan of Treatment Upcoming Encounters Date Type Department Care Team (Late st Contact Info) Description 10/08/2024 2:15 PM REELING AND TUBING MACHINE OPERATOR Office Visit [facility] #2 [place] [address] Orlin Urbina, BUILDING CONSULTANT, MILL WASHER #2 [place] [address] 10/18/2024 2:15 PM REELING AND TUBING MACHINE OPERATOR [facility] 1 [place] [address] Oswaldo Serrano MD #[address] [address] Discharge Disposition: Discharged to home or Selfcare 11/29/2024 2:30 PM REELING AND TUBING MACHINE OPERATOR Office Visit [facility] #2 [place] [address] Oswaldo Serrano MD #[address] [address] 11/30/2024 3:00 PM REELING AND TUBING MACHINE OPERATOR Office Visit [facility] - Endocrinology - [place] #2 [place] [address] Ok Jorge MD #[address] [address] documented as of this encounter Visit Diagnoses Not on filedocumented in this encounter Additional Health Concerns Infection Onset Date Last Indicated Resolved Time COVID - 19 05/29/2020 05/30/2020 06/01/2020 4:09 PM CDT COVID - 19 10/09/2020 10/09/2020 10/11/2020 5:17 AM REELING AND TUBING MACHINE OPERATOR COVID - 19 11/12/2020 11/12/2020 11/16/2020 9:49 AM REELING AND TUBING MACHINE OPERATOR COVID - 19 07/28/2021 07/29/2021 08/17/2021 12:1 6 AM REELING AND TUBING MACHINE OPERATOR Assessment Noted Time PHQ-9 Depression Total Score: 2 06/22/20 19 3:45 PM CDT documented as of this encounter Care Teams Fbi Profiler Relationship Specialty Start Date End Date Oswaldo Serrano MD #[address] [address] PCP - General Family Medicine 05/19/17 Angel Crowe DPM #[address] [address] Consulting Physician Podiatry 06/16/17 Mora Fritz [place] Behavioral Health Navigator 06/15/18 Ok Jorge MD #[address] [address] Consulting Physician Endocrinology 05/12/22 Orlin Urbina, BUILDING CONSULTANT, MILL WASHER #2 [place] [address] Nurse Practitioner Advanced Practice Nurse 11/09/22 documented as of this encounter
--- OUTSIDE RECORDS SUMMARY | 2024-10-07 00:31 | XMS_ITS | Encounter Summary ---
Author Organization [facility] Address [address] [place] [address] Phone Care Team Providers Care Singe Machine Operator Name Role Phone Oswaldo Serrano MD Primary Care Provider [phone] Angel Crowe DPM Unavailable [phone] Mora Fritz Unavailable Unavailable Reason for Visit * Reason Comments Medication Refill Encounter Details Date Type Department Care Team (Late st Contact Info) Description 10/27/2019 Refill [facility] #2 [place] [address] Oswaldo Serrano MD #[address] [address] Medication Refill Social History Tobacco Use Types [...] Miscellaneous Notes * Telephone Encounter - Mica Douglas RN - 10/29/2019 7:27 AM CST Medication(s) refilled and signed per [facility] Chronic Medication Refill Standing Order for Pediatric and Adult Patients. LE WORKER documented in this encounter Plan of Treatment Upcoming Encounters Date Type Department Care Team (Late st Contact Info) Description 10/08/2024 2:15 PM KETTLE WORKER Office Visit [facility] #2 [place] [address] Orlin Urbina APRN, CONTROLLED ATMOSPHERIC FURNACE BRAZER #2 [place] [address] 10/18/2024 2:15 PM KETTLE WORKER Appointment [facility] 1 [place] [address] Oswaldo Serrano MD #[address] [address] Discharge Disposition: Discharged to home or Selfcare 11/29/2024 2:30 PM KETTLE WORKER Office Visit [facility] Medicine - [place] #2 [place] [address] Oswaldo Serrano MD #[address] [address] 11/30/2024 3:00 PM KETTLE WORKER Office Visit [facility] - Endocrinology - [place] #2 [place] [address] Ok Jorge MD #2 [facility] [address] [place] [address] documented as of this encounter Visit Diagnoses Not on filedocumented in this encounter Additional Health Concerns Assessment Noted Time PHQ-9 Depression Total Score: 2 06/22/20 19 3:45 PM CDT documented as of this encounter Care Teams Singe Machine Operator Relationship Specialty Start Date End Date Oswaldo Serrano MD #2 [facility] [address] [place] [address] PCP - General Family Medicine 05/19/17 Angel Crowe DPM #2 [facility] [address] [place] [address] Consulting Physician Podiatry 06/16/17 Mora Fritz Behavioral Health Navigator 06/15/18 documented as of this encounter
--- OUTSIDE RECORDS SUMMARY | 2024-10-07 00:31 | XMS_ITS | Encounter Summary ---
Author Organization [facility] Address [address] [place] [address] Phone Care Team Providers Care Corporate General Manager Name Role Phone Oswaldo Serrano MD Primary Care Provider [phone] Angel Crowe DPM Unavailable Mora Fritz Unavailable Unavailable Reason for Visit * Reason Comments Medication Refill Encounter Details Date Type Department Care Team (Late st Contact Info) Description 10/13/2019 Refill [facility] [address] [place] [address] Oswaldo Serrano MD #[address] [address] Medication Refill Social History Tobacco [...] Miscellaneous Notes * Telephone Encounter - Amina iNcolas, RN - 10/15/2019 9:19 AM PROJ MGR Medication(s) refilled and signed per [facility] Chronic Medication Refill Standing Order for Pediatric and Adult Patients. MGR documented in this encounter Plan of Treatment Upcoming Encounters Date Type Department Care Team (Late st Contact Info) Description 10/08/2024 2:15 PM PROJ MGR Office Visit [facility] #2 [place] [address] Orlin Urbina, CASUALTY CLAIMS SUPERVISOR, HOISTER #2 [place] [address] 10/18/2024 2:15 PM PROJ MGR [facility] 1 [place] [address] Oswaldo Serrano MD #[address] [address] Discharge Disposition: Discharged to home or Selfcare 11/29/2024 2:30 PM PROJ MGR Office Visit [facility] #2 [place] [address] Oswaldo Serrano MD #[address] [address] 11/30/2024 3:00 PM PROJ MGR Office Visit [facility] Endocr[facility]ology - [place] #2 [place] [address] Ok Jorge MD #2 [facility] [address] [place] [address] documented as of this encounter Results * URINALYSIS REFLEX IF INDICATED BY ABNORMAL RESULTS (10/16/2019) Urine specimen (specimen) URINE SPECIMEN COLLECTION, CLEAN CATCH / Unknown Oswaldo Serrano MD URINE ORDERABLES Final Resu lt documented in this encounter Visit Diagnoses Diagnosis Dysuria- Primary documented in this encounter Additional Health Concerns Assessment Noted Time PHQ-9 Depression Total Score: 2 06/22/20 19 3:45 PM CDT documented as of this encounter Care Teams Corporate General Manager Relationship Specialty Start Date End Date Oswaldo Serrano MD #2 [facility] [address] [place] [address] PCP - General Family Medicine 05/19/17 Angel Crowe DPM #2 [facility] [address] [place] [address] Consulting Physician Podiatry 06/16/17 Mora Fritz Behavioral Health Navigator 06/15/18 documented as of this encounter
--- OUTSIDE RECORDS SUMMARY | 2024-10-07 00:31 | XMS_ITS | Encounter Summary ---
Author Organization [facility] Address [address] [place] [address] Phone Care Team Providers Care Digital Assistant Name Role Phone Oswaldo Serrano MD Primary Care Provider Angel Crwoe DPM Unavailable Mora Fritz Unavailable Unavailable Reason for Visit * Reason Comments Urinary Frequency 3 month follow up Hypothyroid Abnormal Study/Test Result Elevated LFTs Sore Throat All of teeth removed and thinks it has to do with that. Ear Pain Bilateral Encounter Details Date Type Department Care Team (Late st Contact Info) Description 12/14/2019 3:00 PM FLOTATION OPERATOR Office Visit [facility] [address] [place] [id number] Merry Elliott PAC [address] [place] [address] Type 2 diabetes mellitus treated with insulin (HCC) (Primary Dx); Elevated liver enzymes; Acute vaginitis; Pharyngitis, unspecified etiology; Class 3 severe obesity due to excess [...] Sign Reading Time Taken Comments Blood Pressure 112/78 12/14/2019 2:46 PM FLOTATION OPERATOR Pulse 72 12/14/2019 2:46 PM FLOTATION OPERATOR Temperature 36.7 ??C (98.1 ??F) 12/14/2019 2:46 PM CS T Respiratory Rate 18 12/14/2019 2:46 PM FLOTATION OPERATOR Oxygen Saturation 98% 12/14/2019 2:46 PM FLOTATION OPERATOR Inhaled Oxygen Concentration - - Weight 121.6 kg (268 lb) 12/14/2019 2:46 PM FLOTATION OPERATOR Height 167.6 cm (5' 6 ) 12/14/2019 2:46 PM FLOTATION OPERATOR Body Mass Index 43.26 12/14/2019 2:46 PM FLOTATION OPERATOR documented in this encounter Patient Instructions * Patient Instructions* Carmencita Barbosa I - 12/14/2019 3:00 PM FLOTATION OPERATOR Pneumonia is a serious lung infection that can make you very sick. There are now two vaccines recommended by the Center for Disease Control and Prevention (CDC) to protect against pneumonia for all patients who are 65 years and older and patients under 65 with certain conditions that put them at a higher risk. Request your pneumonia vaccines at your Primary Care Physician???s office or your localpharmacy. ATION OPERATOR documented in this encounter Progress Notes * Carmencita Barbosa I - 12/14/2019 3:00 PM CST Loretta Penn, 58 y.o., female is here for Urinary Frequency (3 month follow up ); Hypothyroid; Abnormal Study/Test Result (Elevated LFTs); Sore Throat (All of teeth removed and thinks it has to do with that.); and Ear Pain (Bilateral) Medication Refills: Patient reports/denies need for medication refills. Orders Pended: no Requested Prescriptions No prescriptions requested or ordered in this encounter Home Medications Medication Sig Start Date End Date Taking? Authorizing Provider ASPIR-LOW 81 MG Tablet Delayed Response 05/24/17 Nica Muniz MD carvedilol (COREG) 25 MG Tablet 25 mg 2 times daily. 05/06/17 Yes Nica Muniz MD dilTIAZem (CARDIZEM) 30 MG Tablet TK 1 T PO TID 04/28/17 Nica Muniz MD diphenhydrAMINE (BENADRYL) 25 MG Tablet Take 25 mg by mouth every 6 hours as needed for Itching or Sleep. 05/24/17 Nica Muniz MD escitalopram (LEXAPRO) 10 MG Tablet TAKE 1 TABLET BY MOUTH DAILY. 10/01/19 Oswaldo Serrano MD furosemide (LASIX) 40 MG Tablet TK 1 T PO BID 04/29/17 Nica Muniz MD Glucose Blood (TRUE METRIX BLOOD GLUCOSE TEST) Strip Test four times daily 09/08/17 Yes Ok Jorge MD insulin lispro (HUMALOG) [...] Yes Ok Jorge MD Insulin Syringe-Needle U-100 (INSULIN SYRINGE .5CC/31GX5/16 ) 31G X 5/16 0.5 ML Misc 4 times a day06/03/18 Yes Ok Jorge MD Lancets Misc Test four times daily 09/08/17 Yes Ok Jorge MD LANTUS 100 UNIT/ML Solution INJECT 16 UNITS EVERY MORNING. 11/19/19 Yes Ok Jorge MD levothyroxine (SYNTHROID) 50 MCG Tablet TAKE ONE TABLET DAILY IN THE MORNING ON AN EMPTY STOMACH 10/29/19 Oswaldo Serrano MD lisinopril (PRINIVIL, ZESTRIL) 5 MG Tablet Take 1 Tab by mouth daily. 06/22/19 Connor Yuan, HOME BASED ASSISTANT, METAL REFINER nortriptyline (PAMELOR) 10 MG Capsule TAKE 1 CAPSULE DAILY 09/17/19 Tom Quach MD oxybutynin (DITROPAN) 5 MG Tablet TAKE ONE TABLET DAILY 10/15/19 Oswaldo Serrano MD potassium chloride CR (KLORCON) 10 MEQ Tablet Controlled Release 08/18/19 ProviderNica MD raNITIdine (ZANTAC) 150 MG Tablet TAKE ONE TABLET TWICE DAILY 10/29/19 Oswaldo Serrano MD rivaroxaban (XARELTO) 20 MG Tablet Take [...] 2) 12/20/2011 ??? Dilated Eye Exam 07/18/2019 Orders Pended: no The following BPA's have been addressed with the patient today: BMI, Pneumonia, Colonoscopy and Depression -Patient is ill, no shots pended. -Has order for colonoscopy, will schedule. ATION OPERATOR * Merry Elliott PAC - 12/14/2019 3:00 PM CST Subjective: Patient sees sample tailor about 1 month ago, Dr. Flores She has CHF, she denies increased swelling She has type 2 diabetes and follows up with creative strategist Has history of elevated liver enzymes, no recent follow up with GI She is doing well with lexapro Has sore throat and sore glands with ear pain after removal of lower teeth about 1 week ago Review of Systems Constitutional: Negative for fever. HENT: Positive for ear pain and sore throat. Respiratory: Negative for chest tightness and shortness of breath. Cardiovascular: Negative for chest pain, palpitations and leg swelling. Gastrointestinal: Negative for abdominal pain, constipation, diarrhea, nausea and vomiting. Genitourinary: Negative for difficulty urinating and dysuria. Vaginal itching Neurological: Negative for weakness. Psychiatric/Behavioral: Negative for sleep disturbance. Objective: Physical Exam Vitals signs reviewed. Constitutional: Appearance: She is obese. She is not ill-appearing. HENT: Head: Normocephalic and atraumatic. Right Ear: Tympanic membrane normal. Left Ear: Tympanic membrane normal. Nose: Nose normal. Mouth/Throat: Mouth: Mucous membranes are moist. Comments: Lower gums with edema. Clicking of jaw with opening and closing. Eyes: General: Right eye: No discharge. Left eye: No discharge. Extraocular Movements: Extraocular movements intact. Cardiovascular: Rate and Rhythm: Normal rate and regular rhythm. Heart sounds: No murmur. Pulmonary: Effort: Pulmonary effort is normal. No respiratory distress. Breath sounds: Normal breath sounds. No wheezing. Lymphadenopathy: Cervical: Cervical adenopathy present. Skin: General: Skin is warm and dry. Neurological: Mental Status: She is alert. Psychiatric: Mood and Affect: Mood normal. 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 Patient will have labs done today as ordered to follow-up on diabetes and hypothyroidism. And elevated liver enzymes. Discussed acute vaginitis she is given Diflucan. Notify if no improvements have vaginal irritation. She will work on dietary changes for weight loss exercise. She is given amoxicillin for recent dental extraction. Notify if no improvements or problems with medications. Discussed ear pain could be TMJ. ATION OPERATOR documented in this encounter Plan of Treatment Upcoming Encounters Date Type Department Care Team (Late st Contact Info) Description 10/08/2024 2:15 PM FLOTATION OPERATOR Office Visit [facility] PHYSICIAN [facility] UROLOGY #[address] [place] [address] Orlin Urbina APRN, METAL REFINER [address] [place] [address] 10/18/2024 2:15 PM FLOTATION OPERATOR [facility] [address] [place] [address] Oswaldo Serrano MD [address] [address] Discharge Disposition: Discharged to home or Selfcare 11/29/2024 2:30 PM FLOTATION OPERATOR Office Visit [facility] - [place] [address] [place] [address] Oswlado Serrano MD #[address] [address] 11/30/2024 3:00 PM FLOTATION OPERATOR Office Visit [facility] - Endocrinology - [place] #2 [facility] [place] [address] Ok Jorge MD [address] [address] documented as of this encounter Results * THYROID STIMULATING HORMONE (TSH) (12/14/2019 5:00 PM FLOTATION OPERATOR) TSH 2.360 0.270 - 4.200 mIU/L 12/14/2019 6:18 PM FLOTATION OPERATOR [facility] Blood specimen (specimen) Venipuncture / Unknown 12/14/2019 5:00 PM FLOTATION OPERATOR 12/14/2019 5:01 PM FLOTATION OPERATOR us Merry Elliott PAC CHEMISTRY ORDERABLES Fin al Result [facility] #[address] [place] [address] * (ABNORMAL) LIPID PANEL (12/14/2019 5:00 PM FLOTATION OPERATOR) CHOLESTEROL 179 <=200 mg/dL 12/14/2019 6:18 PM FLOTATION OPERATOR [facility] TRIGLYCERIDES 221(H) <150 mg/dL 12/14/2019 6:18 PM FLOTATION OPERATOR [facility] HDL CHOLESTEROL 44.8 >40 mg/dL 0 6:18 PM FLOTATION OPERATOR [facility] LDL 90 5 - 130 mg/dL 12/14/2019 6:18 PM FLOTATION OPERATOR [facility] VLDL 44 5 - 55 mg/dL 12/14/2019 6:18 PM FLOTATION OPERATOR [facility] CHOL/HDL RATIO 4.0 0.0 - 4.4 12/14/2019 6:18 PM FLOTATION OPERATOR [facility] NON-HDL CHOLESTEROL 134.2(H) <130 mg/dL 12/14/2019 6:18 PM FLOTATION OPERATOR [facility] LIPID FASTING 12/14/2019 6:18 PM FLOTATION OPERATOR [facility] Blood specimen (specimen) Venipuncture / Unknown 12/14/2019 5:00 PM FLOTATION OPERATOR 12/14/2019 5:01 PM FLOTATION OPERATOR us Merry Elliott PAC CHEMISTRY ORDERABLES Fin al Result [facility] #[address] [place] [address] * (ABNORMAL) CMP (COMPREHENSIVE METABOLIC PANEL) (12/14/2019 5:00 PM FLOTATION OPERATOR) SODIUM 137 136 - 144 mmol/L 12/14/2019 6:18 PM [facility] POTASSIUM 4.2 3.5 - 5.1 mmol/L 12/14/2019 6:18 PM [facility] CHLORIDE 98(L) 100 - 110 mmol/L 12/14/2019 6:18 PM [facility] CO2, VENOUS 26 22 - 32 mmol/L 12/14/2019 6:18 PM [facility] ANION GAP 17.2 8.0 - 20.0 mmol/L 12/14/2019 6:18 PM [facility] GLUCOSE 156(H) 70 - 99 mg/dL 12/14/2019 6:18 PM [facility] BUN 16 6 - 20 mg/dL 12/14/2019 6:18 PM [facility] CREATININE, BLOOD 0.83 0.60 - 1.10 mg/dL 12/14/2019 6:18 PM [facility] BUN/CREATININE RATIO 19 12 - 20 ratio 12/14/2019 6:18 PM [facility] TOTAL PROTEIN 6.9 6.0 - 8.3 g/dL 12/14/2019 6:18 PM [facility] ALBUMIN 4.1 3.5 - 5.2 g/dL 12/14/2019 6:18 PM [facility] Comment: The colormetric methods used for the determination of Albumin may lead to falsely elevated test results in patients suffering from renal failure or insufficiency due to interference with other proteins. A/G RATIO 1.5 1.0 - 2.0 12/14/2019 6:18 PM FLOTATION OPERATOR [facility] CALCIUM 9.9 8.9 - 10.3 mg/dL 12/14/2019 6:18 PM FLOTATION OPERATOR [facility] T BILI 0.3 <=1.2 mg/dL 12/14/2019 6:18 PM FLOTATION OPERATOR [facility] SGOT (AST) 16 <=32 U/L 12/14/2019 6:18 PM FLOTATION OPERATOR [facility] SGPT (ALT) 17 <=33 U/L 12/14/2019 6:18 PM FLOTATION OPERATOR [facility] ALKALINE PHOSPHATASE 142(H) 35 - 105 U/L 12/14/2019 6:18 PM FLOTATION OPERATOR [facility] GFR, EST. NONAFRICAN >60 >=60 12/14/2019 6:18 PM FLOTATION OPERATOR [facility] GFR, EST. >60 >=60 020 6:18 PM [facility] Comment: Creatinine Clearance is the preferred criteria for selecting drug dose adjustments in renally impaired patients. ??The GFR is provided as additional pertinent clinical information. GFR is reported in mL/min/1.73 sq m. Blood specimen (specimen) Venipuncture / Unknown 12/14/2019 5:00 PM FLOTATION OPERATOR 12/14/2019 5:01 PM FLOTATION OPERATOR us Merry Elliott PAC CHEMISTRY ORDERABLES Fin al Result [facility] #[address] [place] [address] documented in this encounter Visit Diagnoses Diagnosis Type 2 diabetes mellitus treated with insulin (HCC)- Primary Elevated liver enzymes Nonspecific elevation of levels of transaminase or lactic acid dehydrogenase (LDH) Acute vaginitis Vaginitis and vulvovaginitis, unspecified Pharyngitis, unspecified etiology Class 3 severe obesity due to excess calories with serious comorbidity and body mass index (BMI) of 40.0 to 44.9 in adult (HCC) documented in this encounter Additional Health Concerns Assessment Noted Time PHQ-9 Depression Total Score: 1 12/14/19 20 2:55 PM FLOTATION OPERATOR documented as of this encounter Care Teams Digital Assistant Relationship Specialty Start Date End Date Oswaldo Serrano MD [address] [address] PCP - General Family Medicine 05/19/17 Angel Crowe DPM [address] [address] Consulting Physician Podiatry 06/16/17 Mora Fritz Behavioral Health Navigator 06/15/18 documented as of this encounter
--- OUTSIDE RECORDS SUMMARY | 2024-10-07 00:31 | XMS_ITS | Encounter Summary ---
Author Organization [facility] Address [address] [place] [address] Phone Care Team Providers Care Fishing Vessel Captain Name Role Phone Oswaldo Serrano MD Primary Care Provider Angel Crowe DPM Unavailable Mora Fritz Unavailable Unavailable Reason for Visit * Reason Comments Medication Refill Encounter Details Date Type Department Care Team (Late st Contact Info) Description 11/19/2019 Refill [facility] - [place] [address] [place] [address] Ok Jorge MD #[address] [address] Medication Refill Social History Tobacco [...] Telephone Encounter - Ok Jorge MD - 11/19/2019 4:26 PM CST Rx sent HARDENER * Telephone Encounter - Ynes Zuniga, RN - 11/19/2019 3:54 PM LENS HARDENER Refill request received. Order pended. Requested Prescriptions Pending Prescriptions Disp Refills ??? insulin lispro (HUMALOG) 100 UNIT/ML Solution [Pharmacy Med Name: HUMALOG INJ 100/ML] 20 mL 2 Sig: INJECT 12 UNITS AT BREKFAST, 10 UNITS AT LUNCH AND 14 UNITS AT DINNER --- CORRECTIONAL FACTOR INSULIN OF 1:30 UP TO 60 UNITS PER DAY ??? LANTUS 100 UNIT/ML Solution [Pharmacy Med Name: LANTUS INJ 100/ML] 20 mL 0 Sig: INJECT 16 UNITS EVERY MORNING. Next appt: 12/11/2019 HARDENER documented in this encounter Plan of Treatment Upcoming Encounters Date Type Department Care Team (Late st Contact Info) Description 10/08/2024 2:15 PM LENS HARDENER Office Visit [facility] UROLOGY #[address] [place] [address] Orlin Urbina, MAINFRAME ARCHITECT, SHIP JOINER [address] [place] [address] 10/18/2024 2:15 PM LENS HARDENER Appointment [facility] Mammography 1 [place] [address] Oswaldo Serrano MD #[address] [address] Discharge Disposition: Discharged to home or Selfcare 11/29/2024 2:30 PM LENS HARDENER Office Visit [facility] Medical [facility] Family Medicine [facility] [address] [place] [address] Oswaldo Serrano MD #[address] [address] 11/30/2024 3:00 PM LENS HARDENER Office Visit [facility] Endocrinology [facility] [address] [place] [address] Ok Jorge MD #[address] [address] documented as of this encounter Visit Diagnoses Not on filedocumented in this encounter Additional Health Concerns Assessment Noted Time PHQ-9 Depression Total Score: 2 06/22/20 19 3:45 PM CDT documented as of this encounter Care Teams Fishing Vessel Captain Relationship Specialty Start Date End Date Oswaldo Serrano MD #[address] [address] PCP - General Family Medicine 05/19/17 Angel Crowe DPM #[address] [address] Consulting Physician Podiatry 06/16/17 Mora Fritz [place] Behavioral Health Navigator 06/15/18 documented as of this encounter
--- OUTSIDE RECORDS SUMMARY | 2024-10-07 00:48 | XMS_ITS | Clinical Summary ---
Author Organization [facility] Address [address] [place] [address] Care Team Providers Care E Commerce Director Name Role Phone Oswaldo Serrano MD Primary Care Provider [phone] Pastora Flores MD Unavailable Sandro Hong MD Unavailable Allergies Active Allergy Reactions Criticality Noted Date Comments Sulfa (Sulfonamide Antibiotics) Medications escitalopram (LEXAPRO) 10 mg tablet Take 1 tablet (10 mg total) by mouth daily 4 Active ferrous sulfate 325 mg (65 mg of elemental iron) tablet Take 1 tablet (325 mg total) by mouth daily with breakfast Active levothyroxine (SYNTHROID) 75 mcg tablet Take 1 tablet (75 mcg total) by mouth every morning Active omeprazole (PriLOSEC) 20 mg capsule Take 1 capsule (20 mg total) by mouth daily Active Xarelto 20 mg tablet Take 1 tablet (20 mg total) by mouth daily with dinner Active docusate sodium (COLACE) 100 mg capsule Take 1 capsule (100 mg total) by mouth 2 (two) times a day 7 Active Gemtesa 75 mg tablet Take 1 tablet by mouth daily Active multivit gjugdjre-lqys-Z A-calcium (THERA-M) 9 mg iron-400 mcg tablet Take 1 tablet by mouth daily Active cholecalciferol (VITAMIN D-3) 5,000 unit tablet Take 1 tablet (5,000 Units total) by mouth daily Active fluticasone propionate (FLONASE) 50 mcg/actuation nasal spray Administer 1 spray into each nostril daily as needed for rhinitis Active albuterol HFA (PROVENTIL HFA,VENTOLIN HFA,PROAIR HFA) 90 mcg/actuation inhaler Inhale 2 puffs every 6 (six) hours as needed for wheezing Active midodrine (PROAMATINE) 5 mg tablet Take 1 tablet (5 mg total) by mouth 2 (two) times a day as needed (if systolic blood pressure less than 90mmHg) 30 tablet 4 Active magnesium oxide (MAG-OX) 400 mg (241.3 mg elemental magnesium) tabletIndicatio ns:hypomagnesem ia Take 1 tablet (400 mg total) by mouth daily 30 tablet 4 Active pen needle, diabetic 32 gauge x needle Use as directed 3 times a day. 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 Take 2 capsules (1,000 mg total) by mouth 2 (two) times a day 360 capsule 3 4 08/02/20 25 Active lidocaine (ASPERCREME) 4 % adhesive patch,medicated Place 1 patch on the skin daily 1 patch 3 4 Active lidocaine (LMX) 4 % cream Apply 2.5 g (1 Application total) topically daily 30 g 2 4 Active spironolactone (ALDACTONE) 25 mg tablet Take 0.5 tablets (12.5 mg total) by mouth daily 15 tablet 11 4 08/02/20 25 Active furosemide (LASIX) 40 mg tablet Take 1 tablet (40 mg total) by mouth daily 90 tablet 3 4 08/02/20 Active cyclobenzaprine (FLEXERIL) 5 mg tablet Take 1 tablet (5 mg total) by mouth 3 (three) times a day as needed for muscle spasms for up to 5 days 15 tablet Active metoprolol XL (TOPROL-XL) 100 mg 24 hr tablet Take 1 tablet (100 mg total) by mouth daily 90 tablet 11/01/19 Active insulin glargine 100 unit/mL (3 mL) pen for injection Inject 26 Units under the skin daily with breakfast 23.4 mL 1 4 01/30/20 Active insulin aspart (NovoLOG) 100 unit/mL (3 mL) pen for injection Inject 11 Units under the skin 3 (three) times a day before meals 29.7 mL 1 4 01/30/20 Active Active Problems Problem Noted Date Diagnosed Date Osteomyelitis 07/07/2024 Ventricular tachycardia 06/11/2024 Chronic diastolic congestive heart failure ([facility]) 06/11/2024 Endocarditis 06/11/2024 Urinary frequency 06/11/2024 Gastroesophageal reflux disease without esophagi tis 06/11/2024 Paroxysmal atrial fibrillation ([facility]) 024 Major depressive disorder 06/11/2024 CKD (chronic kidney disease) 06/11/2024 Traumatic hematoma of right upper arm 06/06/2024 Hypotension due to drugs 06/06/2024 SOB (shortness of breath) 05/30/2024 Acute on chronic systolic co ngestive heart failure ([facility]) 05/30/2024 Neck pain 05/30/2024 Hyponatremia 05/30/2024 Chronic a-fib ([facility]) 05/30/2024 Controlled type 2 diabetes m pancho with chronic kidney disease, with long-term current use of insulin 05/30/2024 Hypothyroidism 05/30/2024 JOSE (obstructive sleep apnea) 05/30/2024 Diabetes mellitus with hyperglycemia 05/30/2024 Endocarditis 05/29/2024 Encounters Date Type Department Care Team Description 08/31/2024 SHOP/CHAP Subsequent Outreach [facility] [address] [place] [address] Naa Miller LCSW 08/22/2024 SHOP/CHAP Subsequent Outreach [facility] [address] [place] [address] Naa Miller, TIRE LAYER 08/15/2024 SHOP/CHAP Subsequent Outreach [facility] [address] [place] [address] Naa Miller, TIRE LAYER 08/09/2024 Telephone [facility] Cardiothoracic Surgery [address] [facility] 8th Floor [address] [place] [address] Jennifer AnguianoherONEIL 08/08/2024 SHOP/CHAP Initial Outreach [facility] [address] [place] [address] Naa Miller, TIRE LAYER 08/07/2024 Telephone [facility] [address] [place] [address] Ashley Travis, [facility] 08/06/2024 SHOP/CHAP Initial Outreach [facility] [address] [place] [address] Naa Miller, TIRE LAYER 08/06/2024 Telephone [facility] [address] [place] [address] Ashley Travis, [facility] 08/03/2024 SHOP/CHAP Initial Outreach [facility] [address] [place] [address] Naa Miller, TIRE LAYER 08/03/2024 SHOP/CHAP Initial Eligibility Review [facility] [address] [place] [address] Naa Miller, TIRE LAYER 08/02/2024 Telephone [facility] Cardiology [address] [facility] 8th [place] [address] [place] [address] Russ Pride MD 07/27/2024 1:22 PM CDT Anesthesia Event [facility] [address] [place] [address] Suzanne Hernandez MD Goez, Marie Christine, SALLY 07/25/2024 Orders Only [facility] Radiology [address] [place] [address] Hina Blanton RN 07/16/2024 Documentation [facility] Infectious Diseases [address] [place] [phone] Eric Magaña MD 07/13/2024 3:00 PM CDT - 07/13/2024 5:40 PM CDT Surgery [facility] Operating Room [address] [place] [id number] Connie Baig MD EXTRACTION LEAD AUTOMATIC IMPLANTABLE CARDIOVERTER DEFIBRILLATOR 07/13/2024 2:55 PM CDT Anesthesia Event [facility] Operating Room [address] [place] [id number] Jolanta Abdi MD Jablonski, Melody A., NP 07/13/2024 1:35 PM CDT Ancillary Procedure [facility] Operating Room [address] [place] [address] 07/10/2024 11:32 AM CDT Anesthesia Event [facility] [address] [place] [phone] Robert Messer MD Gielow, Mathew Gregory, PREPARER [employer] REPAIRS 07/07/2024 12:12 AM CDT - 08/02/2024 5:52 PM CDT Hospital Encounter [address] [address] Elvira Cooper MD Hammond, Jennifer G., MD Rich, Russ Armenta MD Acute bacterial endocarditis (Primary Dx); Ventricular tachycardia (HCC); SOB (shortness of breath); Acute on chronic systolic congestive heart failure (CMS/HCC) (HCC) Discharge Disposition: Discharge to home, home health skilled care from Last 3 Months Surgical History Surgery Date Site/Laterality Comments CARDIAC DEFIBRILLATOR PLACEMENT INSERT / REPLACE / REMOVE PACEMAKER CHOLECYSTECTOMY OTHER SURGICAL HISTORY 05/31/2024 CHANCE/CARDIOVERSION IR PICC LINE PLACEMENT > 5 YEARS 06/05/2024 N/A Medical History Medical History Date Comments CHF (congestive heart failure) ([facility]) ([facility]) Diabetes mellitus ([facility]) A-fib ([facility]) ([facility]) Hypertension GERD (gastroesophageal reflux disease) Thyroid disease OAB (overactive bladder) Intellectual disability Sleep apnea Social History Tobacco Use Types Packs/Day Years Used Date Smoking Tobacco: Never Smokeless Tobacco: Never Tobacco Cessation:Counseling Given: No [facility] Utilities Answer Date Recorded In the past 12 months has Invoiceable, gas, oil, or water [employer] threatened to shut off services in your home? No 08/08/2024 Social Connection and Isolat ion Panel [NHANES] Answer Date Recorded In a typical week, how many times do you talk on the phone with family, friends, or neighbors? More than three times a week 08/08/2024 How often do you get togethe r with friends or relatives? More than three times a week 08/08/2024 How often do you attend chur ch or taoist services? Never 08/08/2024 Do you belong to any clubs o r organizations such as mormon groups, unions, fraternal or athletic groups, or school groups? No 08/08/2024 How often do you attend meet ings of the clubs or organizations you belong to? Never 08/08/2024 Are you , , di vorced, , never , or living with a partner? 08/08/2024 AUDIT-C Answer Date Recorded Q1: How often do you have a drink containing alcohol? Never 07/25/2024 Q2: How many drinks containi ng alcohol do you have on a typical day when you are drinking? Patient does not drink Q3: How often do you have si x or more drinks on one occasion? Never 07/25/2024 Overall Financial Resource Strain (CARDIA) Answe r Date Recorded How hard is it for you to pa y for the very basics like food, housing, medical care, and heating? Not very hard 08/08/2024 PHQ-2 Answer Date Recorded PHQ-2 Total Score 2 07/07/2024 Hunger Vital Sign Answer Date Recorded Within the past 12 months, y ou worried that your food would run out before you got the money to buy more. Never true 08/08/20 24 Within the past 12 months, t he food you bought just didn't last and you didn't have money to get more. Never true 08/08/2024 PRAPARE - Transportation Answer Date Re corded In the past 12 months, has l ack of transportation kept you from medical appointments or from getting medications? No 07/12 In the past 12 months, has l ack of transportation kept you from meetings, work, or from getting things needed for daily living? No 08/08/2024 Housing Stability Vital Sign Answer Charlie e Recorded In the last 12 months, was t here a time when you were not able to pay the mortgage or rent on time? No 08/08/2024 In the past 12 months, how m any times have you moved where you were living? 1 08/08/2024 At any time in the past 12 m [facility], were you homeless or living in a long term (including now)? No 08/08/2024 Personal Safety Answer Date Recorded Have you ever been in or are you currently in a harmful physical or emotional relationship or is someone making you feel afraid or unsafe? 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 Gender Identity Not on file Sexual Orientation Not on file Obstetrics History Last Filed Vital Signs Vital Sign Reading Time Taken Comments Blood Pressure 129/81 08/02/2024 4:17 PM CDT Pulse 74 08/02/2024 4:17 PM CDT Temperature 36.4 ??C (97.5 ??F) 08/02/2024 4:17 PM CD T Respiratory Rate 18 08/02/2024 4:17 PM CDT Oxygen Saturation 97% 08/02/2024 4:17 PM CDT Inhaled Oxygen Concentration - - Weight 109.6 kg (241 lb 9.6 oz) 08/01/2024 5:15 AM CDT Height 165.1 cm (5' 5 ) 07/07/2024 7:00 AM CDT Body Mass Index 40.2 07/07/2024 7:00 AM CDT Plan of Treatment Health Maintenance Due Date Last Done Comments Albumin Creatinine Ratio, Urine 1961 Cervical Cancer Screening 1961 Dilated Eye Exam 1961 Foot Exam 1961 Hepatitis B Screening 12/20/1979 Regular Well Visit/Exam 18-64 12/20/1979 Zoster Vaccine (1 of 2) 12/20/2011 Breast Cancer Screening-Mammogram 10/27/2022 022, 10/17/2018 Covid-19 Vaccine (2023-2 5 season) 2024 01/18/2021, 12/23/2020 Influenza Vaccine (#1) 2024 , 07/18/2020, 06/22/2019, Additional history exists Hemoglobin A1C 01/04/2025 07/07/2024, 06/11, 02/12/2017 Depression Screening 07/03/2025 07/03/2024 Lipid Panel 07/10/2025 07/10/2024, 07/09/2024 eGFR 08/01/2025 08/01/2024, 07/11, 07/31/2024, Additional history exists Colon Cancer Screening-Colonoscopy 03/04/2027 03/04/2017 DTaP/Tdap/Td Vaccine (2 - Td or Tdap) 06/10/2034 06/10/2024 Hepatitis C Screening Completed 03/01/2017, 017 Colon Cancer Screening-CT Colonography Discontinued 03/04/2017 Colon Cancer Screening-DNA Stool Discontinued 03/04/20 17 Colon Cancer Screening-FIT Discontinued 03/04/2017 Colon Cancer Screening-Sigmoidoscopy Discontinued 03/04/2017 Pneumococcal vaccine <65 Completed 08/26/2022 Medical Devices Implanted Type Area Bookbinding Machine Operator Device Identifier Shelf Expiration Date Model / Serial / Lot Biotronik Iperia 7 Drt-05/20/2017 Implanted:08/2017 by Jasper Mcfarland MD (Quantity not on file) ICD Chest Wall Biotronik [id number] / [id number] / Biotronik Rv Lead [id number] Implanted:08/2017 (Quantity not on file) Lead Heart [id number] / [id number] / Biotronik Ra Lead [id number] Implanted: (Quantity not on file) Lead Heart Biotronik [id number] / [id number] / Unknown Wire (~5cm Long) Other - see comments Chest Stent Stent Heart Procedures Procedure Name Priority Date/Time Associated Diagnosis Comments POCT GLUCOSE DEVICE Routine 08/02/2024 5 :24 PM CDT POCT GLUCOSE DEVICE Routine 08/02/2024 11:49 AM CDT POCT GLUCOSE DEVICE Routine 08/02/2024 8:33 AM CDT EGFR Routine 08/01/2024 8:56 PM CDT MAGNESIUM Routine 08/01/2024 8:56 PM CDT COMPREHENSIVE METABOLIC PANEL Routine 08/01/2024 8:56 PM CDT CBC WITHOUT DIFFERENTIAL Routine 08/01/2024 8:56 PM CDT POCT GLUCOSE DEVICE Routine 08/01/2024 8 :55 PM CDT POCT GLUCOSE DEVICE Routine 08/01/2024 4 :48 PM CDT POCT GLUCOSE DEVICE Routine 08/01/2024 2 :44 PM CDT POCT GLUCOSE DEVICE Routine 08/01/2024 11:41 AM CDT POCT GLUCOSE DEVICE Routine 08/01/2024 8 :02 AM CDT POTASSIUM, WHOLE BLOOD Timed 5:22 AM CDT EGFR Routine 07/31/2024 10:13 PM CDT MAGNESIUM Routine 07/31/2024 10:13 PM CDT COMPREHENSIVE METABOLIC PANEL Routine 07/31/2024 10:13 PM CDT CBC WITHOUT DIFFERENTIAL Routine 07/31/2024 10:13 PM CDT POCT GLUCOSE DEVICE Routine 07/31/2024 5 :23 PM CDT POCT GLUCOSE DEVICE Routine 07/31/2024 11:34 AM CDT POCT GLUCOSE DEVICE Routine 07/31/2024 8 :14 AM CDT CP-CRE CULTURE, SURVEILLANCE Routine 07/31/2024 5:59 AM CDT EGFR Routine 07/31/2024 2:28 AM CDT MAGNESIUM Routine 07/31/2024 2:28 AM CDT COMPREHENSIVE METABOLIC PANEL Routine 07/31/2024 2:28 AM CDT CBC WITHOUT DIFFERENTIAL Routine 07/31/2024 2:28 AM CDT POCT GLUCOSE DEVICE Routine 07/30/2024 11:43 PM CDT POCT GLUCOSE DEVICE Routine 07/30/2024 7 :51 PM CDT POCT GLUCOSE DEVICE Routine 07/30/2024 5 :06 PM CDT POCT GLUCOSE DEVICE Routine 07/30/2024 11:25 AM CDT POCT GLUCOSE DEVICE Routine 07/30/2024 8 :25 AM CDT DIFFERENTIAL AUTO Routine 07/29/2024 10:10 PM CDT EGFR Routine 07/29/2024 10:10 PM CDT MAGNESIUM Routine 07/29/2024 10:10 PM CDT COMPREHENSIVE METABOLIC PANEL Routine 07/29/2024 10:10 PM CDT CBC WITHOUT DIFFERENTIAL Routine 07/29/2024 10:10 PM CDT POCT GLUCOSE DEVICE Routine 07/29/2024 9 :30 PM CDT POCT GLUCOSE DEVICE Routine 07/29/2024 5 :11 PM CDT POCT GLUCOSE DEVICE Routine 07/29/2024 11:30 AM CDT POCT GLUCOSE DEVICE Routine 07/29/2024 8 :37 AM CDT POCT GLUCOSE DEVICE Routine 07/29/2024 3 :08 AM CDT EGFR Routine 07/29/2024 3:02 AM CDT MAGNESIUM Routine 07/29/2024 3:02 AM CDT COMPREHENSIVE METABOLIC PANEL Routine 07/29/2024 3:02 AM CDT CBC WITHOUT DIFFERENTIAL Routine 07/29/2024 3:02 AM CDT POCT GLUCOSE DEVICE Routine 07/28/2024 9 :05 PM CDT POCT GLUCOSE DEVICE Routine 07/28/2024 6 :00 PM CDT POCT GLUCOSE DEVICE Routine 07/28/2024 12:20 PM CDT POCT GLUCOSE DEVICE Routine 07/28/2024 8 :30 AM CDT EGFR Routine 07/28/2024 5:08 AM CDT MAGNESIUM Routine 07/28/2024 5:08 AM CDT COMPREHENSIVE METABOLIC PANEL Routine 07/28/2024 5:08 AM CDT CBC WITHOUT DIFFERENTIAL Routine 07/28/2024 5:08 AM CDT POCT GLUCOSE DEVICE Routine 07/27/2024 8 :55 PM CDT POCT GLUCOSE DEVICE Routine 07/27/2024 5 :11 PM CDT POCT GLUCOSE DEVICE Routine 07/27/2024 3 :57 PM CDT POCT GLUCOSE DEVICE Routine 07/27/2024 2 :45 PM CDT TRANSESOPHAGEAL ECHO (CHANCE) W DOPPLER/CF WO CONTRAST Routine 07/27/2024 2:[address] AN PROCEDURE PLACEHOLDER Routine 07/27/2024 1:43 PM CDT POCT GLUCOSE DEVICE Routine 07/27/2024 11:27 AM CDT POCT GLUCOSE DEVICE Routine 07/27/2024 8 :06 AM CDT POCT GLUCOSE DEVICE Routine 07/26/2024 9 :02 PM CDT POCT GLUCOSE DEVICE Routine 07/26/2024 4 :31 PM CDT POCT GLUCOSE DEVICE Routine 07/26/2024 4 :22 PM CDT POCT GLUCOSE DEVICE Routine 07/26/2024 11:49 AM CDT POCT GLUCOSE DEVICE Routine 07/26/2024 8 :16 AM CDT EGFR Routine 07/25/2024 8:04 PM CDT MAGNESIUM Routine 07/25/2024 8:04 PM CDT COMPREHENSIVE METABOLIC PANEL Routine 07/25/2024 8:04 PM CDT CBC WITHOUT DIFFERENTIAL Routine 07/25/2024 8:04 PM CDT POCT GLUCOSE DEVICE Routine 07/25/2024 8 :00 PM CDT POCT GLUCOSE DEVICE Routine 07/25/2024 5 :16 PM CDT IR FOLLOW UP INPATIENT IP Routine 3:47 PM CDT POCT GLUCOSE DEVICE Routine 07/25/2024 3 :00 PM CDT POCT GLUCOSE DEVICE Routine 07/25/2024 11:57 AM CDT POCT GLUCOSE DEVICE Routine 07/25/2024 8 :25 AM CDT EGFR Routine 07/24/2024 10:31 PM CDT PROTIME-INR Routine 07/24/2024 10:31 PM CDT MAGNESIUM Routine 07/24/2024 10:31 PM CDT COMPREHENSIVE METABOLIC PANEL Routine 07/24/2024 10:31 PM CDT CBC WITHOUT DIFFERENTIAL Routine 07/24/2024 10:31 PM CDT POCT GLUCOSE DEVICE Routine 07/24/2024 11:15 AM CDT POCT GLUCOSE DEVICE Routine 07/24/2024 8 :54 AM CDT POCT GLUCOSE DEVICE Routine 07/24/2024 8 :30 AM CDT EGFR Routine 07/23/2024 8:40 PM CDT MAGNESIUM Routine 07/23/2024 8:40 PM CDT COMPREHENSIVE METABOLIC PANEL Routine 07/23/2024 8:40 PM CDT CBC WITHOUT DIFFERENTIAL Routine 07/23/2024 8:40 PM CDT POCT GLUCOSE DEVICE Routine 07/23/2024 8 :24 PM CDT POCT GLUCOSE DEVICE Routine 07/23/2024 5 :45 PM CDT POCT GLUCOSE DEVICE Routine 07/23/2024 12:18 PM CDT PET/CT FDG SKULL TO THIGH IP Routine 07/23/2024 11:42 AM CDT POCT GLUCOSE DEVICE Routine 07/22/2024 5 :02 PM CDT POCT GLUCOSE DEVICE Routine 07/22/2024 3 :46 PM CDT POCT GLUCOSE DEVICE Routine 07/22/2024 12:16 PM CDT POCT GLUCOSE DEVICE Routine 07/22/2024 8 :41 AM CDT POCT GLUCOSE DEVICE Routine 07/21/2024 8 :40 PM CDT POCT GLUCOSE DEVICE Routine 07/21/2024 5 :12 PM CDT POCT GLUCOSE DEVICE Routine 07/21/2024 3 :02 PM CDT POCT GLUCOSE DEVICE Routine 07/21/2024 2 :14 PM CDT POCT GLUCOSE DEVICE Routine 07/21/2024 12:11 PM CDT POCT GLUCOSE DEVICE Routine 07/21/2024 9 :15 AM CDT EGFR Routine 07/20/2024 8:23 PM CDT MAGNESIUM Routine 07/20/2024 8:23 PM CDT COMPREHENSIVE METABOLIC PANEL Routine 07/20/2024 8:23 PM CDT CBC WITHOUT DIFFERENTIAL Routine 07/20/2024 8:23 PM CDT POCT GLUCOSE DEVICE Routine 07/20/2024 7 :44 PM CDT POCT GLUCOSE DEVICE Routine 07/20/2024 5 :55 PM CDT POCT GLUCOSE DEVICE Routine 07/20/2024 12:08 PM CDT POCT GLUCOSE DEVICE Routine 07/20/2024 8 :19 AM CDT URINALYSIS, MICROSCOPIC ONLY Routine 07/20/2024 7:06 AM CDT URINALYSIS AND REFLEX TO MICROSCOPIC AND CULTURE Routine 07/20/2024 7:06 AM CDT EGFR Routine 07/19/2024 9:57 PM CDT MAGNESIUM Routine 07/19/2024 9:57 PM CDT COMPREHENSIVE METABOLIC PANEL Routine 07/19/2024 9:57 PM CDT CBC WITHOUT DIFFERENTIAL Routine 07/19/2024 9:57 PM CDT POCT GLUCOSE DEVICE Routine 07/19/2024 9 :49 PM CDT POCT GLUCOSE DEVICE Routine 07/19/2024 5 :03 PM CDT UREA NITROGEN, URINE, RANDOM Routine 07/19/2024 12:59 PM CDT SODIUM, URINE, RANDOM Routine 07/19/2024 12:59 PM CDT CREATININE, URINE, RANDOM Routine 07/19/2024 12:59 PM CDT POCT GLUCOSE DEVICE Routine 07/19/2024 12:48 PM CDT POCT GLUCOSE DEVICE Routine 07/19/2024 12:11 PM CDT CBC WITH AUTO DIFFERENTIAL Routine 07/18/2024 9:07 PM CDT DIFFERENTIAL AUTO Routine 07/18/2024 9:0 7 PM CDT EGFR Routine 07/18/2024 9:07 PM CDT MAGNESIUM Routine 07/18/2024 9:07 PM CDT COMPREHENSIVE METABOLIC PANEL Routine 07/18/2024 9:07 PM CDT CBC WITHOUT DIFFERENTIAL Routine 07/18/2024 9:07 PM CDT POCT GLUCOSE DEVICE Routine 07/18/2024 8 :17 PM CDT POCT GLUCOSE DEVICE Routine 07/18/2024 5 :16 PM CDT POCT GLUCOSE DEVICE Routine 07/18/2024 11:41 AM CDT POCT GLUCOSE DEVICE Routine 07/18/2024 8 :17 AM CDT EGFR Routine 07/17/2024 9:17 PM CDT MAGNESIUM Routine 07/17/2024 9:17 PM CDT COMPREHENSIVE METABOLIC PANEL Routine 07/17/2024 9:17 PM CDT CBC WITHOUT DIFFERENTIAL Routine 07/17/2024 9:17 PM CDT POCT GLUCOSE DEVICE Routine 07/17/2024 9 :04 PM CDT POCT GLUCOSE DEVICE Routine 07/17/2024 4 :48 PM CDT NM MPI SPECT SINGLE STUDY (REST) FOR SARCOIDOSIS IP Routine 07/17/2024 4:31 PM CDT POCT GLUCOSE DEVICE Routine 07/17/2024 11:27 AM CDT POCT GLUCOSE DEVICE Routine 07/17/2024 7 :45 AM CDT CBC WITH AUTO DIFFERENTIAL Routine 07/16/2024 9:13 PM CDT DIFFERENTIAL AUTO Routine 07/16/2024 9:1 3 PM CDT EGFR Routine 07/16/2024 9:13 PM CDT MAGNESIUM Routine 07/16/2024 9:13 PM CDT COMPREHENSIVE METABOLIC PANEL Routine 07/16/2024 9:13 PM CDT CBC WITHOUT DIFFERENTIAL Routine 07/16/2024 9:13 PM CDT POCT GLUCOSE DEVICE Routine 07/16/2024 8 :06 PM CDT POCT GLUCOSE DEVICE Routine 07/16/2024 4 :[address] HEART MORPHOLOGY AND CORONARY ARTERIES W CONTRAST Timed 07/16/2024 12:07 PM CDT POCT GLUCOSE DEVICE Routine 07/16/2024 11:00 AM CDT POCT GLUCOSE DEVICE Routine 07/16/2024 7 :42 AM CDT POTASSIUM, WHOLE BLOOD STAT 2:15 AM CDT EGFR Routine 07/15/2024 10:22 PM CDT MAGNESIUM Routine 07/15/2024 10:22 PM CDT COMPREHENSIVE METABOLIC PANEL Routine 07/15/2024 10:22 PM CDT CBC WITHOUT DIFFERENTIAL Routine 07/15/2024 10:22 PM CDT POCT GLUCOSE DEVICE Routine 07/15/2024 7 :47 PM CDT POCT GLUCOSE DEVICE Routine 07/15/2024 4 :08 PM CDT POCT GLUCOSE DEVICE Routine 07/15/2024 11:10 AM CDT POCT GLUCOSE DEVICE Routine 07/15/2024 8 :48 AM CDT POCT GLUCOSE DEVICE Routine 07/15/2024 8 :07 AM CDT COMPREHENSIVE METABOLIC PANEL STAT 07/14/2024 9:36 PM CDT EGFR STAT 07/14/2024 9:36 PM CDT MAGNESIUM STAT 07/14/2024 9:36 PM CDT BILIRUBIN, DIRECT Routine 07/14/2024 9:3 6 PM CDT CREATININE STAT 07/14/2024 9:36 PM CDT CBC WITHOUT DIFFERENTIAL Routine 07/14/2024 9:36 PM CDT POCT GLUCOSE DEVICE Routine 07/14/2024 8 :26 PM CDT POCT GLUCOSE DEVICE Routine 07/14/2024 4 :14 PM CDT XR CHEST 1 VIEW ED Urgent/IP Urgent 07/14/2024 3:00 PM CDT PROTIME-INR STAT 07/14/2024 11:54 AM CDT APTT STAT 07/14/2024 11:54 AM CDT POCT GLUCOSE DEVICE Routine 07/14/2024 11:26 AM CDT POCT GLUCOSE DEVICE Routine 07/14/2024 8 :18 AM CDT POCT GLUCOSE DEVICE Routine 07/14/2024 8 :17 AM CDT CBC WITHOUT DIFFERENTIAL Routine 07/13/2024 9:03 PM CDT MAGNESIUM Routine 07/13/2024 9:00 PM CDT EGFR Routine 07/13/2024 9:00 PM CDT COMPREHENSIVE METABOLIC PANEL Routine 07/13/2024 9:00 PM CDT POCT GLUCOSE DEVICE Routine 07/13/2024 7 :58 PM CDT AEROBIC CULTURE AND GRAM STAIN Routine 07/13/2024 5:34 PM CDT AEROBIC CULTURE AND GRAM STAIN Routine 07/13/2024 5:34 PM CDT FL FLUOROSCOPY < 1 HOUR IP Routine 07/13/2024 5:30 PM CDT POC BLOOD GAS AND CHEMISTRIES, ARTERIAL Routine 07/13/2024 5:[address] AN PROCEDURE PLACEHOLDER Routine 07/13/2024 5:15 PM CDT ANESTHESIA CENTRAL VENOUS LINE PLACEMENT Routine 07/13/2024 5:04 PM CDT ANESTHESIA INTUBATION Routine 07/13/2024 5:03 PM CDT PREPARE RBC STAT 07/13/2024 4:37 PM CDT ANESTHESIA ARTERIAL LINE PLACEMENT Routine 07/13/2024 4:34 PM CDT CHANCE ADD-ON FOR OR Routine 07/13/2024 3:3 8 PM CDT EXTRACTION LEAD AUTOMATIC IMPLANTABLE CARDIOVERTER DEFIBRILLATOR 07/13/2024 3:15 PM CDT Acute bacterial endocarditis TYPE AND SCREEN Timed 07/13/2024 3:09 PM CDT POCT GLUCOSE DEVICE Routine 07/13/2024 3 :01 PM CDT POCT GLUCOSE DEVICE Routine 07/13/2024 11:45 AM CDT POCT GLUCOSE DEVICE Routine 07/13/2024 8 :00 AM CDT EGFR Routine 07/13/2024 12:58 AM CDT APTT Timed 07/13/2024 12:58 AM CDT COMPREHENSIVE METABOLIC PANEL Routine 07/13/2024 12:58 AM CDT CBC WITHOUT DIFFERENTIAL Routine 07/13/2024 12:58 AM CDT POCT GLUCOSE DEVICE Routine 07/12/2024 11:01 PM CDT POCT GLUCOSE DEVICE Routine 07/12/2024 8 :13 AM CDT APTT STAT 07/12/2024 4:17 AM CDT MAGNESIUM Routine 07/11/2024 9:19 PM CDT EGFR Routine 07/11/2024 9:19 PM CDT APTT STAT 07/11/2024 9:19 PM CDT COMPREHENSIVE METABOLIC PANEL Routine 07/11/2024 9:19 PM CDT CBC WITHOUT DIFFERENTIAL Routine 07/11/2024 9:19 PM CDT POCT GLUCOSE DEVICE Routine 07/11/2024 8 :31 PM CDT POCT GLUCOSE DEVICE Routine 07/11/2024 5 :14 PM CDT XR CHEST PA LATERAL 2 VIEWS IP Routine 07/11/2024 4:16 PM CDT POCT GLUCOSE DEVICE Routine 07/11/2024 11:36 AM CDT POCT GLUCOSE DEVICE Routine 07/11/2024 7 :27 AM CDT MAGNESIUM Routine 07/10/2024 11:24 PM CDT EGFR Routine 07/10/2024 11:24 PM CDT APTT Timed 07/10/2024 11:24 PM CDT COMPREHENSIVE METABOLIC PANEL Routine 07/10/2024 11:24 PM CDT CBC WITHOUT DIFFERENTIAL Routine 07/10/2024 11:24 PM CDT APTT STAT 07/10/2024 4:59 PM CDT POCT GLUCOSE DEVICE Routine 07/10/2024 4 :53 PM CDT LIPID PANEL Routine 07/10/2024 2:21 PM CDT POCT GLUCOSE DEVICE Routine 07/10/2024 2 :15 PM CDT TRANSESOPHAGEAL ECHO (CHANCE) W DOPPLER/CF WO CONTRAST Routine 07/10/2024 12:29 PM CDT POCT GLUCOSE DEVICE Routine 07/10/2024 9 :49 AM CDT POCT GLUCOSE DEVICE Routine 07/10/2024 7 :45 AM CDT APTT STAT 07/10/2024 6:43 AM CDT LIPID PANEL Routine 07/09/2024 11:48 PM CDT EGFR Routine 07/09/2024 11:48 PM CDT APTT Timed 07/09/2024 11:48 PM CDT COMPREHENSIVE METABOLIC PANEL Routine 07/09/2024 11:48 PM CDT CBC WITHOUT DIFFERENTIAL Routine 07/09/2024 11:48 PM CDT POCT GLUCOSE DEVICE Routine 07/09/2024 10:46 PM CDT POCT GLUCOSE DEVICE Routine 07/09/2024 8 :33 PM CDT POCT GLUCOSE DEVICE Routine 07/09/2024 4 :45 PM CDT APTT STAT 07/09/2024 4:27 PM CDT POCT GLUCOSE DEVICE Routine 07/09/2024 11:36 AM CDT POCT GLUCOSE DEVICE Routine 07/09/2024 7 :56 AM CDT POTASSIUM, WHOLE BLOOD Routine 7:11 AM CDT APTT STAT 07/09/2024 4:59 AM CDT EGFR Routine 07/08/2024 9:48 PM CDT APTT Timed 07/08/2024 9:48 PM CDT COMPREHENSIVE METABOLIC PANEL Routine 07/08/2024 9:48 PM CDT CBC WITHOUT DIFFERENTIAL Routine 07/08/2024 9:48 PM CDT HIV 1/2 ANTIBODY PLUS P24 ANTIGEN Routine 07/08/2024 9:48 PM CDT POCT GLUCOSE DEVICE Routine 07/08/2024 8 :16 PM CDT POCT GLUCOSE DEVICE Routine 07/08/2024 3 :44 PM CDT CRITICAL RESULT CALLBACK HEMATOLOGY STAT 07/08/2024 12:54 PM CDT APTT STAT 07/08/2024 12:54 PM CDT POCT GLUCOSE DEVICE Routine 07/08/2024 11:03 AM CDT POCT GLUCOSE DEVICE Routine 07/08/2024 7 :40 AM CDT APTT STAT 07/08/2024 4:53 AM CDT HEMOGLOBIN A1C Routine 07/07/2024 1:34 AM CDT COLONOSCOPY REPORT 03/04/2017 HEPATITIS C GENOTYPE Routine 03/01/2017 7:46 PM CDT from Last 3 Months or Most Recently Relevant to Health Maintenance Results * POCT glucose (08/02/2024 5:24 PM CDT) Glucose, POC 115 70 - 199 mg/dL Blood 08/02/2024 5:24 PM CDT 08/02/2024 5:24 PM CDT us Russ Pride MD LAB POCT ORDERABLES - DEVICE Final Result [facility] Department [place] [address] * POCT glucose (08/02/2024 11:49 AM CDT) Glucose, POC 189 70 - 199 mg/dL Blood 08/02/2024 11:4 9 AM CDT 08/02/2024 11:49 AM CDT Russ Pride MD LAB POCT ORDERABLES - DEVICE Final Result Performing Organization Address [facility] Co de Phone Number [facility] [place] [address] * POCT glucose (08/02/2024 8:33 AM CDT) Glucose, POC 142 70 - 199 mg/dL Blood 08/02/2024 8:3 3 AM CDT 08/02/2024 8:33 AM CDT Russ Pride MD LAB POCT ORDERABLES - DEVICE Final Result Performing Organization Address [facility] Phone Number [facility] Department [place] [address] * eGFR (08/01/2024 8:56 PM CDT) eGFR 69 >=60 mL/min/1. 73 m2 Comment: Interpretive Data Reference Interval Normal ?>/= 90 mL/min/1.73m2 Mildly decreased* ? 60 - 89 mL/min/1.73m2 Mildly to moderately decreased ?45 - 59 mL/min/1.73m2 Moderately to severely decreased ??30 - 44 mL/min/1.73m2 Severely decreased ?15 - 29 mL/min/1.73m2 Kidney Failure ?< 15 ??mL/min/1.73m2 *Relative to young adult level Estimated glomerular filtration rate is determined by the 2020 CKD-EPI equation recommended by the National Kidney Foundation (A Unifying Approach to GFR Estimation: Recommendations of the NKF-ASK Task Force on Reassessing the Inclusion of Race in Diagnosing Kidney Disease, JASN 2020). The CKD-EPI equation should not be used for patients with unstable renal function and has not been validated in children and those over 70. Current interpretive data was last reviewed 2021. Blood 08/01/2024 8:56 PM CDT 08/01/2024 9:48 PM CDT Elvira Cooper MD LAB BLOOD ORDERABLES Ayanna l Result Performing Organization Address City/[facility]/ZIP Co de Phone Number [facility] Department [place] [address] * (ABNORMAL) CBC without differential (08/01/2024 8:56 PM CDT) WBC 6.3 3.8 - 9.9 K/cumm Hgb 11.3(L) 11.9 - 15.5 g/dL [facility] Hct 34.4(L) 35.6 - 45.5 % [facility] Plt 228 150 - 400 K/cumm [facility] MPV 9.7 9.1 - 12.3 fL [facility] RBC 3.49(L) 3.90 - 5.20 M/cumm [facility] MCV 98.6(H) 81.3 - 96.4 fL [facility] MCH 32.4 27.1 - 33.3 pg [facility] MCHC 32.8 32.3 - 35.7 g/dL [facility] RDW CV 13.2 11.1 - 14.9 % [facility] RDW SD 47.4 35.7 - 48.1 fL [facility] NRBC abs 0.00 0.00 - 0.01 K/cumm [facility] Blood 08/01/2024 8:56 PM CDT 08/01/2024 9:50 PM CDT Elvira Cooper MD LAB BLOOD ORDERABLES Ayanna l Result [facility] Department [place] [address] * Magnesium (08/01/2024 8:56 PM CDT) [facility] Magnesium 2.1 1.4 - 2.5 mg/dL Blood 08/01/2024 8:56 PM CDT 08/01/2024 9:48 PM CDT Ynes Roman MD LAB BLOOD ORDERABLES Ayanna l Result [facility] Department [place] [address] * (ABNORMAL) Comprehensive metabolic panel (08/01/2024 8:56 PM CDT) [facility] Sodium 136 135 - 145 mmol/L Potassium, pl 3.8 3.3 - 4.9 mmol/L [facility] Chloride 99 97 - 110 mmol/L [facility] CO2 28 22 - 32 mmol/L [facility] Anion gap 9 2 - 15 mmol/L [facility] BUN 20 6 - 25 mg/dL [facility] Creatinine 0.93 0.60 - 1.10 mg/dL [facility] Glucose 191 70 - 199 mg/dL [facility] Comment: Interpretive Data Fasting glucose >/= 126 mg/dl is diagnostic for diabetes. ?? Fasting is defined as no caloric intake for at least 8 hours. Fasting glucose between 100 mg/dl to 125 mg/dl is diagnostic of prediabetes. In a patient with classic symptoms of hyperglycemia or hyperglycemic crisis, a random glucose >/= 200 mg/dl is diagnostic for diabetes. In the absence of unequivocal hyperglycemia, results should be confirmed by repeat testing. The classification and Diagnosis of Diabetes Diabetes Care 202; 46: S19-S40. Current interpretive data was last revised 2022. Calcium 9.3 8.5 - 10.3 mg/dL [facility] Bilirubin, total 0.2 0.1 - 1.2 mg/dL [facility] Protein, pl 7.0 6.5 - 8.5 g/dL [facility] Albumin 3.2(L) 3.5 - 5.0 g/dL [facility] Alk phos 151(H) 40 - 130 Units/L [facility] ALT 18 7 - 45 Units/L [facility] AST 31 10 - 45 Units/L [facility] Blood 08/01/2024 8:56 PM CDT 08/01/2024 9:48 PM CDT us Elvira Cooper MD LAB BLOOD ORDERABLES Ayanna l Result Performing Organization Address City/[facility]/ZIP Co de Phone Number [facility] [place] [address] * POCT glucose (08/01/2024 8:55 PM CDT) Glucose, POC 192 70 - 199 mg/dL Blood 08/01/2024 8:55 PM CDT 08/01/2024 8:55 PM CDT us Russ Pride MD LAB POCT ORDERABLES - DEVICE Final Result Performing Organization Address [facility] Co de Phone Number [facility] [place] [address] * (ABNORMAL) POCT glucose (08/01/2024 4:48 PM CDT) Glucose, POC 231(H) 70 - 199 mg/dL Blood 08/01/2024 4:48 PM CDT 08/01/2024 4:48 PM CDT Russ Pride MD LAB POCT ORDERABLES - DEVICE Final Result Performing Organization Address [facility] Co de Phone Number [facility] [place] [address] * POCT glucose (08/01/2024 2:44 PM CDT) Glucose, POC 91 70 - 199 mg/dL Blood 08/01/2024 2:44 PM CDT 08/01/2024 2:44 PM CDT Russ Pride MD LAB POCT ORDERABLES - DEVICE Final Result Performing Organization Address [facility] de Phone Number [facility] [place] [address] * (ABNORMAL) POCT glucose (08/01/2024 11:41 AM CDT) [facility] Glucose, POC 232(H) 70 - 199 mg/dL Blood 08/01/2024 11:4 1 AM CDT 08/01/2024 11:41 AM CDT Russ Pride MD LAB POCT ORDERABLES - DEVICE Final Result Performing Organization Address [facility] de Phone Number [facility] [place] [address] * POCT glucose (08/01/2024 8:02 AM CDT) [facility] Glucose, POC 199 70 - 199 mg/dL Blood 08/01/2024 8:02 AM CDT 08/01/2024 8:02 AM CDT Russ Pride MD LAB POCT ORDERABLES - DEVICE Final Result Performing Organization Address [facility] de Phone Number [facility] [place] [address] * Potassium, whole blood (08/01/2024 5:22 AM CDT) [facility] Potassium, bld 4.2 3.3 - 4.9 mmol/L Blood 08/01/2024 5:22 AM CDT 08/01/2024 5:48 AM CDT us Russ Pride MD LAB BLOOD ORDERABLES Final Re sult Performing Organization Address [facility] Co de Phone Number [facility] Department [place] [address] * eGFR (07/31/2024 10:13 PM CDT) eGFR 61 >=60 mL/min/1. 73 m2 Comment: Interpretive Data Reference Interval Normal ?>/= 90 mL/min/1.73m2 Mildly decreased* ? 60 - 89 mL/min/1.73m2 Mildly to moderately decreased ?45 - 59 mL/min/1.73m2 Moderately to severely decreased ??30 - 44 mL/min/1.73m2 Severely decreased ?15 - 29 mL/min/1.73m2 Kidney Failure ?< 15 ??mL/min/1.73m2 *Relative to young adult level Estimated glomerular filtration rate is determined by the 2020 CKD-EPI equation recommended by the National Kidney Foundation (A Unifying Approach to GFR Estimation: Recommendations of the NKF-ASK Task Force on Reassessing the Inclusion of Race in Diagnosing Kidney Disease, JASN 2020). The CKD-EPI equation should not be used for patients with unstable renal function and has not been validated in children and those over 70. Current interpretive data was last reviewed 2021. Blood 07/31/2024 10:1 3 PM CDT 07/31/2024 10:52 PM CDT us Elvira Cooper MD LAB BLOOD ORDERABLES Ayanna l Result Performing Organization Address [facility] Co de Phone Number [facility] Department of Laboratories [place], [place] [id number] * (ABNORMAL) CBC without differential (07/31/2024 10:13 PM CDT) Pathologist [facility] [place] WBC 6.3 3.8 - 9.9 K/cumm Hgb 11.6(L) 11.9 - 15.5 g/dL [facility] Hct 35.7 35.6 - 45.5 % [facility] Plt 266 150 - 400 K/cumm [facility] MPV 9.6 9.1 - 12.3 fL [facility] RBC 3.67(L) 3.90 - 5.20 M/cumm [facility] MCV 97.3(H) 81.3 - 96.4 fL [facility] MCH 31.6 27.1 - 33.3 pg [facility] MCHC 32.5 32.3 - 35.7 g/dL [facility] RDW CV 13.2 11.1 - 14.9 % [facility] RDW SD 47.4 35.7 - 48.1 fL [facility] NRBC abs 0.00 0.00 - 0.01 K/cumm [facility] Blood 07/31/2024 10:1 3 PM CDT 07/31/2024 10:52 PM CDT Elvira Cooper MD LAB BLOOD ORDERABLES Ayanna l Result Performing Organization Address [facility] Co de Phone Number [facility] [place] [address] * Magnesium (07/31/2024 10:13 PM CDT) [facility] Magnesium 1.9 1.4 - 2.5 mg/dL Blood 07/31/2024 10:1 3 PM CDT 07/31/2024 10:52 PM CDT Ynes Roman MD LAB BLOOD ORDERABLES Ayanna l Result [facility] Department [place] [address] * (ABNORMAL) Comprehensive metabolic panel (07/31/2024 10:13 PM CDT) Sodium 138 135 - 145 mmol/L Potassium, pl 4.2 3.3 - 4.9 mmol/L [facility] Comment:Hemolyzed; Potassium value may be falsely elevated by as much as 0.3-0.5 mmol/L. Suggest redraw and reanalysis. Chloride 100 97 - 110 mmol/L [facility] CO2 28 22 - 32 mmol/L [facility] Anion gap 10 2 - 15 mmol/L [facility] BUN 27(H) 6 - 25 mg/dL [facility] Creatinine 1.04 0.60 - 1.10 mg/dL [facility] Glucose 216(H) 70 - 199 mg/dL [facility] Comment: Interpretive Data Fasting glucose >/= 126 mg/dl is diagnostic for diabetes. ?? Fasting is defined as no caloric intake for at least 8 hours. Fasting glucose between 100 mg/dl to 125 mg/dl is diagnostic of prediabetes. In a patient with classic symptoms of hyperglycemia or hyperglycemic crisis, a random glucose >/= 200 mg/dl is diagnostic for diabetes. In the absence of unequivocal hyperglycemia, results should be confirmed by repeat testing. The classification and Diagnosis of Diabetes Diabetes Care 2021; 46: S19-S40. Current interpretive data was last revised 2022. Calcium 9.6 8.5 - 10.3 mg/dL [facility] Bilirubin, total 0.2 0.1 - 1.2 mg/dL [facility] Protein, pl 7.2 6.5 - 8.5 g/dL [facility] Albumin 3.4(L) 3.5 - 5.0 g/dL [facility] Alk phos 161(H) 40 - 130 Units/L [facility] ALT 18 7 - 45 Units/L [facility] AST 26 10 - 45 Units/L [facility] Comment:Hemolyzed; result ma y be falsely elevated Blood 07/31/2024 10:1 3 PM CDT 07/31/2024 10:52 PM CDT Elvira Cooper MD LAB BLOOD ORDERABLES Ayanna l Result Performing Organization Address [facility]/ZIP Co de Phone Number [facility] [place] [address] * POCT glucose (07/31/2024 5:23 PM CDT) Glucose, POC 153 70 - 199 mg/dL Blood 07/31/2024 5:23 PM CDT 07/31/2024 5:23 PM CDT Russ Pride MD LAB POCT ORDERABLES - DEVICE Final Result Performing Organization Address [facility] Co de Phone Number [facility] [place] [address] * (ABNORMAL) POCT glucose (07/31/2024 11:34 AM CDT) Glucose, POC 316(H) 70 - 199 mg/dL Blood 07/31/2024 11:3 4 AM CDT 07/31/2024 11:34 AM CDT Russ Pride MD LAB POCT ORDERABLES - DEVICE Final Result Performing Organization Address [facility] Co de Phone Number [facility] [place] [address] * (ABNORMAL) POCT glucose (07/31/2024 8:14 AM CDT) Glucose, POC 211(H) 70 - 199 mg/dL Blood 07/31/2024 8:14 AM CDT 07/31/2024 8:14 AM CDT Russ Pride MD LAB POCT ORDERABLES - DEVICE Final Result Performing Organization Address City/[facility]/ZIP Co de Phone Number [facility] [place] [address] * CP-CRE culture, surveillance Rectal swab (07/31/2024 5:59 AM CDT) Report Final Report: Negative Rectal swab 07/31/2024 5:59 AM CDT 07/31/2024 6:25 AM CDT Narrative [facility] - 08/01/2024 12:24 PM CDT Interpretive Data The screening agar used for the detection of carbapenemase-producing Enterobacterales (CP-CRE) has not been approved by the Food and Drug Administration. The performance characteristics of this medium have been evaluated and verified by the [facility]. This media demonstrates highest sensitivity for KPC and NDM-1 producing isolates. This screening assay is exclusively intended for infection control and surveillance, not for patient diagnosis or treatment purposes. Current interpretive data was last revised on 2023. us Azeem Urias MD LAB MICROBIOLOGY - GENERAL OR DERABLES Final Result [facility] Department [place] [address] * (ABNORMAL) eGFR (07/31/2024 2:28 AM CDT) eGFR 57(L) >=60 mL/min/1. 73 m2 Comment: Interpretive Data Reference Interval Normal ?>/= 90 mL/min/1.73m2 Mildly decreased* ? 60 - 89 mL/min/1.73m2 Mildly to moderately decreased ?45 - 59 mL/min/1.73m2 Moderately to severely decreased ??30 - 44 mL/min/1.73m2 Severely decreased ?15 - 29 mL/min/1.73m2 Kidney Failure ?< 15 ??mL/min/1.73m2 *Relative to young adult level Estimated glomerular filtration rate is determined by the 2020 CKD-EPI equation recommended by the National Kidney Foundation (A Unifying Approach to GFR Estimation: Recommendations of the NKF-ASK Task Force on Reassessing the Inclusion of Race in Diagnosing Kidney Disease, JASN 2020). The CKD-EPI equation should not be used for patients with unstable renal function and has not been validated in children and those over 70. Current interpretive data was last reviewed 2021. Blood 07/31/2024 2:28 AM CDT 07/31/2024 3:35 AM CDT us Elvira Cooper MD LAB BLOOD ORDERABLES Ayanna vazquez Result [facility] Department [place] [address] * (ABNORMAL) CBC without differential (07/31/2024 2:28 AM CDT) Pathologist [facility] [place] WBC 6.0 3.8 - 9.9 K/cumm Hgb 11.3(L) 11.9 - 15.5 g/dL [facility] Hct 34.4(L) 35.6 - 45.5 % [facility] Plt 240 150 - 400 K/cumm [facility] MPV 9.3 9.1 - 12.3 fL [facility] RBC 3.53(L) 3.90 - 5.20 M/cumm [facility] MCV 97.5(H) 81.3 - 96.4 fL [facility] MCH 32.0 27.1 - 33.3 pg [facility] MCHC 32.8 32.3 - 35.7 g/dL [facility] RDW CV 13.1 11.1 - 14.9 % [facility] RDW SD 46.6 35.7 - 48.1 fL [facility] NRBC abs 0.00 0.00 - 0.01 K/cumm [facility] Blood 07/31/2024 2:28 AM CDT 07/31/2024 3:35 AM CDT Elvira Cooper MD LAB BLOOD ORDERABLES Ayanna l Result Performing Organization Address City/[facility]/ZIP Co de Phone Number [facility] Department [place] [address] * Magnesium (07/31/2024 2:28 AM CDT) Pathologist [facility] [place] Magnesium 2.0 1.4 - 2.5 mg/dL Blood 07/31/2024 2:28 AM CDT 07/31/2024 3:35 AM CDT Ynes Roman MD LAB BLOOD ORDERABLES Ayanna l Result Performing Organization Address [facility] de Phone Number [facility] Department [place] [address] * (ABNORMAL) Comprehensive metabolic panel (07/31/2024 2:28 AM CDT) [facility] Sodium 139 135 - 145 mmol/L Potassium, pl 4.6 3.3 - 4.9 mmol/L [facility] Chloride 100 97 - 110 mmol/L [facility] CO2 28 22 - 32 mmol/L [facility] Anion gap 11 2 - 15 mmol/L [facility] BUN 22 6 - 25 mg/dL [facility] Creatinine 1.09 0.60 - 1.10 mg/dL [facility] Glucose 227(H) 70 - 199 mg/dL [facility] Comment: Interpretive Data Fasting glucose >/= 126 mg/dl is diagnostic for diabetes. ?? Fasting is defined as no caloric intake for at least 8 hours. Fasting glucose between 100 mg/dl to 125 mg/dl is diagnostic of prediabetes. In a patient with classic symptoms of hyperglycemia or hyperglycemic crisis, a random glucose >/= 200 mg/dl is diagnostic for diabetes. In the absence of unequivocal hyperglycemia, results should be confirmed by repeat testing. The classification and Diagnosis of Diabetes Diabetes Care 2021; 46: S19-S40. Current interpretive data was last revised 2022. Calcium 9.4 8.5 - 10.3 mg/dL [facility] Bilirubin, total 0.2 0.1 - 1.2 mg/dL [facility] Protein, pl 6.8 6.5 - 8.5 g/dL [facility] Albumin 3.3(L) 3.5 - 5.0 g/dL [facility] Alk phos 141(H) 40 - 130 Units/L [facility] ALT 8 7 - 45 Units/L [facility] AST 29 10 - 45 Units/L [facility] Blood 07/31/2024 2:28 AM CDT 07/31/2024 3:35 AM CDT us Elvira Cooper MD LAB BLOOD ORDERABLES Ayanna l Result Performing Organization Address City/[facility] Co de Phone Number [facility] [place] [address] * POCT glucose (07/30/2024 11:43 PM CDT) Glucose, POC 195 70 - 199 mg/dL Blood 07/30/2024 11:4 3 PM CDT 07/30/2024 11:43 PM CDT us Russ Pride MD LAB POCT ORDERABLES - DEVICE Final Result Performing Organization Address [facility] Co de Phone Number [facility] Department [place] [address] * POCT glucose (07/30/2024 7:51 PM CDT) Glucose, POC 78 70 - 199 mg/dL Blood 07/30/2024 7:51 PM CDT 07/30/2024 7:51 PM CDT Russ Pride MD LAB POCT ORDERABLES - DEVICE Final Result Performing Organization Address City/[facility] Co de Phone Number [facility] [place] [address] * (ABNORMAL) POCT glucose (07/30/2024 5:06 PM CDT) Glucose, POC 248(H) 70 - 199 mg/dL Blood 07/30/2024 5:06 PM CDT 07/30/2024 5:06 PM CDT Russ Pride MD LAB POCT ORDERABLES - DEVICE Final Result Performing Organization Address City/[facility] Co de Phone Number [facility] [place] [address] * (ABNORMAL) POCT glucose (07/30/2024 11:25 AM CDT) Glucose, POC 210(H) 70 - 199 mg/dL Blood 07/30/2024 11:2 5 AM CDT 07/30/2024 11:25 AM CDT Russ Pride MD LAB POCT ORDERABLES - DEVICE Final Result Performing Organization Address City/[facility] Co de Phone Number [facility] [place] [address] * POCT glucose (07/30/2024 8:25 AM CDT) Glucose, POC 154 70 - 199 mg/dL Blood 07/30/2024 8:25 AM CDT 07/30/2024 8:25 AM CDT Russ Pride MD LAB POCT ORDERABLES - DEVICE Final Result Performing Organization Address City/[facility] Co de Phone Number [facility] [place] [address] * eGFR (07/29/2024 10:10 PM CDT) eGFR 63 >=60 mL/min/1. 73 m2 Comment: Interpretive Data Reference Interval Normal ?>/= 90 mL/min/1.73m2 Mildly decreased* ? 60 - 89 mL/min/1.73m2 Mildly to moderately decreased ?45 - 59 mL/min/1.73m2 Moderately to severely decreased ??30 - 44 mL/min/1.73m2 Severely decreased ?15 - 29 mL/min/1.73m2 Kidney Failure ?< 15 ??mL/min/1.73m2 *Relative to young adult level Estimated glomerular filtration rate is determined by the 2020 CKD-EPI equation recommended by the National Kidney Foundation (A Unifying Approach to GFR Estimation: Recommendations of the NKF-ASK Task Force on Reassessing the Inclusion of Race in Diagnosing Kidney Disease, JASN 2020). The CKD-EPI equation should not be used for patients with unstable renal function and has not been validated in children and those over 70. Current interpretive data was last reviewed 2021. Blood 07/29/2024 10:1 0 PM CDT 07/29/2024 10:49 PM CDT us Elvria Cooper MD LAB BLOOD ORDERABLES Ayanna vazquez Result [facility] [facility] Department [place] [address] * Differential, auto (07/29/2024 10:10 PM CDT) Pathologist [facility] [place] Neutrophil abs 4.2 1.5 - 6.5 K/cumm Imm gran abs 0.0 0.0 - 0.1 K/cumm [facility] Lymphocyte abs 1.5 0.8 - 3.3 K/cumm [facility] Monocyte abs 0.4 0.2 - 0.8 K/cumm [facility] Eosinophil abs 0.2 0.0 - 0.5 K/cumm [facility] Basophil abs 0.1 0.0 - 0.1 K/cumm [facility] Neutrophil pct 65.4 % [facility] Comment: Interpretive Data Percent cell count reference ranges are not reported, since discordance with absolute values may lead to misinterpretation of CBC data. Current Interpretive Data was last revised on 2018. Imm gran pct 0.3 % [facility] Comment: Interpretive Data Percent cell count reference ranges are not reported, since discordance with absolute values may lead to misinterpretation of CBC data. Current Interpretive Data was last revised on 2018. Lymphocyte pct 23.8 % [facility] Comment: Interpretive Data Percent cell count reference ranges are not reported, since discordance with absolute values may lead to misinterpretation of CBC data. Current Interpretive Data was last revised on 2018. Monocyte pct 6.1 % [facility] Comment: Interpretive Data Percent cell count reference ranges are not reported, since discordance with absolute values may lead to misinterpretation of CBC data. Current Interpretive Data was last revised on 2018. Eosinophil pct 3.0 % [facility] Comment: Interpretive Data Percent cell count reference ranges are not reported, since discordance with absolute values may lead to misinterpretation of CBC data. Current Interpretive Data was last revised on 2018. Basophil pct 1.4 % [facility] Comment: Interpretive Data Percent cell count reference ranges are not reported, since discordance with absolute values may lead to misinterpretation of CBC data. Current Interpretive Data was last revised on 2018. Blood 07/29/2024 10:1 0 PM CDT 07/29/2024 11:00 PM CDT us Russ Pride MD LAB BLOOD ORDERABLES Final Re sult OLAMIDE ALEXANDER [facility] Department [place] [address] * (ABNORMAL) CBC without differential (07/29/2024 10:10 PM CDT) WBC 6.3 3.8 - 9.9 K/cumm Hgb 12.4 11.9 - 15.5 g/dL [facility] Hct 36.6 35.6 - 45.5 % [facility] Plt 301 150 - 400 K/cumm [facility] MPV 9.5 9.1 - 12.3 fL [facility] RBC 3.78(L) 3.90 - 5.20 M/cumm [facility] MCV 96.8(H) 81.3 - 96.4 fL [facility] MCH 32.8 27.1 - 33.3 pg [facility] MCHC 33.9 32.3 - 35.7 g/dL [facility] RDW CV 13.1 11.1 - 14.9 % [facility] RDW SD 46.3 35.7 - 48.1 fL [facility] NRBC abs 0.00 0.00 - 0.01 K/cumm [facility] Blood 07/29/2024 10:1 0 PM CDT 07/29/2024 10:48 PM CDT us Elvira Cooper MD LAB BLOOD ORDERABLES Ayanna l Result Performing Organization Address City/[facility]/ZIP Co de Phone Number [facility] [place] [address] * Magnesium (07/29/2024 10:10 PM CDT) Pathologist [facility] [place] Magnesium 1.8 1.4 - 2.5 mg/dL Blood 07/29/2024 10:1 0 PM CDT 07/29/2024 10:49 PM CDT us Ynes Roman MD LAB BLOOD ORDERABLES Ayanna l Result [facility] [place] [address] * (ABNORMAL) Comprehensive metabolic panel (07/29/2024 10:10 PM CDT) Pathologist [facility] [place] Sodium 137 135 - 145 mmol/L Potassium, pl 4.5 3.3 - 4.9 mmol/L [facility] Chloride 100 97 - 110 mmol/L [facility] CO2 27 22 - 32 mmol/L [facility] Anion gap 10 2 - 15 mmol/L [facility] BUN 19 6 - 25 mg/dL [facility] Creatinine 1.01 0.60 - 1.10 mg/dL [facility] Glucose 273(H) 70 - 199 mg/dL [facility] Comment: Interpretive Data Fasting glucose >/= 126 mg/dl is diagnostic for diabetes. ?? Fasting is defined as no caloric intake for at least 8 hours. Fasting glucose between 100 mg/dl to 125 mg/dl is diagnostic of prediabetes. In a patient with classic symptoms of hyperglycemia or hyperglycemic crisis, a random glucose >/= 200 mg/dl is diagnostic for diabetes. In the absence of unequivocal hyperglycemia, results should be confirmed by repeat testing. The classification and Diagnosis of Diabetes Diabetes Care 2021; 46: S19-S40. Current interpretive data was last revised 2022. Calcium 9.4 8.5 - 10.3 mg/dL [facility] Bilirubin, total 0.2 0.1 - 1.2 mg/dL [facility] Protein, pl 7.5 6.5 - 8.5 g/dL [facility] Albumin 3.8 3.5 - 5.0 g/dL [facility] Alk phos 157(H) 40 - 130 Units/L [facility] ALT 7 7 - 45 Units/L [facility] AST 25 10 - 45 Units/L [facility] Blood 07/29/2024 10:1 0 PM CDT 07/29/2024 10:49 PM CDT us Elvira Cooper MD LAB BLOOD ORDERABLES Ayanna vazquez Result [facility] Department [place] [address] * (ABNORMAL) POCT glucose (07/29/2024 9:30 PM CDT) Glucose, POC 262(H) 70 - 199 mg/dL Blood 07/29/2024 9:30 PM CDT 07/29/2024 9:30 PM CDT Russ Pride MD LAB POCT ORDERABLES - DEVICE Final Result Performing Organization Address [facility] de Phone Number [facility] [place] [address] * POCT glucose (07/29/2024 5:11 PM CDT) Glucose, POC 153 70 - 199 mg/dL Blood 07/29/2024 5:11 PM CDT 07/29/2024 5:11 PM CDT Russ Pride MD LAB POCT ORDERABLES - DEVICE Final Result Performing Organization Address [facility] de Phone Number [facility] [place] [address] * (ABNORMAL) POCT glucose (07/29/2024 11:30 AM CDT) Glucose, POC 268(H) 70 - 199 mg/dL Comment:Glu2: RN/ Notified Glucose comment 1 Glu2: RN/ Notified [facility] Blood 07/29/2024 11:3 0 AM CDT 07/29/2024 11:30 AM CDT Russ Pride MD LAB POCT ORDERABLES - DEVICE Final Result Performing Organization Address [facility] [place] [address] * (ABNORMAL) POCT glucose (07/29/2024 8:37 AM CDT) Glucose, POC 280(H) 70 - 199 mg/dL Comment:Glu2: RN/ Notified Glucose comment 1 Glu2: RN/ Notified [facility] Blood 07/29/2024 8:37 AM CDT 07/29/2024 8:37 AM CDT Russ Pride MD LAB POCT ORDERABLES - DEVICE Final Result Performing Organization Address [facility] de Phone Number [facility] [place] [address] * (ABNORMAL) POCT glucose (07/29/2024 3:08 AM CDT) Glucose, POC 285(H) 70 - 199 mg/dL Blood 07/29/2024 3:08 AM CDT 07/29/2024 3:08 AM CDT Russ Pride MD LAB POCT ORDERABLES - DEVICE Final Result Performing Organization Address [facility] de Phone Number [facility] [place] [address] * eGFR (07/29/2024 3:02 AM CDT) eGFR 83 >=60 mL/min/1. 73 m2 Comment: Interpretive Data Reference Interval Normal ?>/= 90 mL/min/1.73m2 Mildly decreased* ? 60 - 89 mL/min/1.73m2 Mildly to moderately decreased ?45 - 59 mL/min/1.73m2 Moderately to severely decreased ??30 - 44 mL/min/1.73m2 Severely decreased ?15 - 29 mL/min/1.73m2 Kidney Failure ?< 15 ??mL/min/1.73m2 *Relative to young adult level Estimated glomerular filtration rate is determined by the 2020 CKD-EPI equation recommended by the National Kidney Foundation (A Unifying Approach to GFR Estimation: Recommendations of the NKF-ASK Task Force on Reassessing the Inclusion of Race in Diagnosing Kidney Disease, JASN 202). The CKD-EPI equation should not be used for patients with unstable renal function and has not been validated in children and those over 70. Current interpretive data was last reviewed 2021. Blood 07/29/2024 3:02 AM CDT 07/29/2024 3:33 AM CDT us Elvira Cooper MD LAB BLOOD ORDERABLES Ayanna vazquez Result [facility] Department [place] [address] * (ABNORMAL) CBC without differential (07/29/2024 3:02 AM CDT) WBC 7.0 3.8 - 9.9 K/cumm Hgb 11.5(L) 11.9 - 15.5 g/dL [facility] Hct 35.6 35.6 - 45.5 % [facility] Plt 282 150 - 400 K/cumm [facility] MPV 9.6 9.1 - 12.3 fL [facility] RBC 3.63(L) 3.90 - 5.20 M/cumm [facility] MCV 98.1(H) 81.3 - 96.4 fL [facility] MCH 31.7 27.1 - 33.3 pg [facility] MCHC 32.3 32.3 - 35.7 g/dL [facility] RDW CV 13.0 11.1 - 14.9 % [facility] RDW SD 46.3 35.7 - 48.1 fL [facility] NRBC abs 0.00 0.00 - 0.01 K/cumm [facility] Blood 07/29/2024 3:02 AM CDT 07/29/2024 3:34 AM CDT Elvira Cooper MD LAB BLOOD ORDERABLES Ayanna l Result Performing Organization Address City/[facility]/ZIP Co de Phone Number [facility] Department [place] [address] * Magnesium (07/29/2024 3:02 AM CDT) Pathologist [facility] [place] Magnesium 1.8 1.4 - 2.5 mg/dL Blood 07/29/2024 3:02 AM CDT 07/29/2024 3:33 AM CDT Ynes Roman MD LAB BLOOD ORDERABLES Ayanna l Result Performing Organization Address [facility] de Phone Number [facility] Department [place] [address] * (ABNORMAL) Comprehensive metabolic panel (07/29/2024 3:02 AM CDT) [facility] Sodium 136 135 - 145 mmol/L Potassium, pl 4.4 3.3 - 4.9 mmol/L [facility] Chloride 99 97 - 110 mmol/L [facility] CO2 27 22 - 32 mmol/L [facility] Anion gap 10 2 - 15 mmol/L [facility] BUN 26(H) 6 - 25 mg/dL [facility] Creatinine 0.80 0.60 - 1.10 mg/dL [facility] Glucose 254(H) 70 - 199 mg/dL [facility] Comment: Interpretive Data Fasting glucose >/= 126 mg/dl is diagnostic for diabetes. ?? Fasting is defined as no caloric intake for at least 8 hours. Fasting glucose between 100 mg/dl to 125 mg/dl is diagnostic of prediabetes. In a patient with classic symptoms of hyperglycemia or hyperglycemic crisis, a random glucose >/= 200 mg/dl is diagnostic for diabetes. In the absence of unequivocal hyperglycemia, results should be confirmed by repeat testing. The classification and Diagnosis of Diabetes Diabetes Care 2021; 46: S19-S40. Current interpretive data was last revised 2022. Calcium 9.7 8.5 - 10.3 mg/dL [facility] Bilirubin, total 0.2 0.1 - 1.2 mg/dL [facility] Protein, pl 7.1 6.5 - 8.5 g/dL [facility] Albumin 3.3(L) 3.5 - 5.0 g/dL [facility] Alk phos 161(H) 40 - 130 Units/L [facility] ALT 11 7 - 45 Units/L [facility] AST 24 10 - 45 Units/L [facility] Blood 07/29/2024 3:02 AM CDT 07/29/2024 3:33 AM CDT Elvira Cooper MD LAB BLOOD ORDERABLES Ayanna l Result Performing Organization Address City/[facility]/ZIP Co de Phone Number [facility] [place] [address] * (ABNORMAL) POCT glucose (07/28/2024 9:05 PM CDT) Glucose, POC 304(H) 70 - 199 mg/dL Blood 07/28/2024 9:05 PM CDT 07/28/2024 9:05 PM CDT Russ Pride MD LAB POCT ORDERABLES - DEVICE Final Result Performing Organization Address [facility] Co de Phone Number [facility] [place] [address] * (ABNORMAL) POCT glucose (07/28/2024 6:00 PM CDT) Glucose, POC 236(H) 70 - 199 mg/dL Blood 07/28/2024 6:00 PM CDT 07/28/2024 6:00 PM CDT Russ Pride MD LAB POCT ORDERABLES - DEVICE Final Result Performing Organization Address [facility] Co de Phone Number [facility] [place] [address] * POCT glucose (07/28/2024 12:20 PM CDT) Glucose, POC 193 70 - 199 mg/dL Blood 07/28/2024 12:2 0 PM CDT 07/28/2024 12:20 PM CDT Russ Pride MD LAB POCT ORDERABLES - DEVICE Final Result Performing Organization Address [facility] de Phone Number [facility] [place] [address] * POCT glucose (07/28/2024 8:30 AM CDT) Glucose, POC 197 70 - 199 mg/dL Blood 07/28/2024 8:30 AM CDT 07/28/2024 8:30 AM CDT Russ Pride MD LAB POCT ORDERABLES - DEVICE Final Result Performing Organization Address [facility] de Phone Number [facility] [place] [address] * eGFR (07/28/2024 5:08 AM CDT) eGFR 77 >=60 mL/min/1. 73 m2 Comment: Interpretive Data Reference Interval Normal ?>/= 90 mL/min/1.73m2 Mildly decreased* ? 60 - 89 mL/min/1.73m2 Mildly to moderately decreased ?45 - 59 mL/min/1.73m2 Moderately to severely decreased ??30 - 44 mL/min/1.73m2 Severely decreased ?15 - 29 mL/min/1.73m2 Kidney Failure ?< 15 ??mL/min/1.73m2 *Relative to young adult level Estimated glomerular filtration rate is determined by the 2020 CKD-EPI equation recommended by the National Kidney Foundation (A Unifying Approach to GFR Estimation: Recommendations of the NKF-ASK Task Force on Reassessing the Inclusion of Race in Diagnosing Kidney Disease, JASN 2020). The CKD-EPI equation should not be used for patients with unstable renal function and has not been validated in children and those over 70. Current interpretive data was last reviewed 2021. Blood 07/28/2024 5:08 AM CDT 07/28/2024 5:56 AM CDT us Elvira Cooper MD LAB BLOOD ORDERABLES Ayanna vazquez Result [facility] Department [place] [address] * (ABNORMAL) CBC without differential (07/28/2024 5:08 AM CDT) WBC 6.3 3.8 - 9.9 K/cumm Hgb 11.5(L) 11.9 - 15.5 g/dL [facility] Hct 34.7(L) 35.6 - 45.5 % [facility] Plt 264 150 - 400 K/cumm [facility] MPV 9.6 9.1 - 12.3 fL [facility] RBC 3.51(L) 3.90 - 5.20 M/cumm [facility] MCV 98.9(H) 81.3 - 96.4 fL [facility] MCH 32.8 27.1 - 33.3 pg [facility] MCHC 33.1 32.3 - 35.7 g/dL [facility] RDW CV 13.0 11.1 - 14.9 % [facility] RDW SD 46.8 35.7 - 48.1 fL [facility] NRBC abs 0.00 0.00 - 0.01 K/cumm [facility] Blood 07/28/2024 5:08 AM CDT 07/28/2024 5:55 AM CDT Elvira Cooper MD LAB BLOOD ORDERABLES Ayanna l Result Performing Organization Address City/[facility]/ZIP Co de Phone Number [facility] Department [place] [address] * Magnesium (07/28/2024 5:08 AM CDT) Pathologist [facility] [place] Magnesium 1.9 1.4 - 2.5 mg/dL Blood 07/28/2024 5:08 AM CDT 07/28/2024 5:56 AM CDT Ynes Roman MD LAB BLOOD ORDERABLES Ayanna l Result Performing Organization Address [facility] Co de Phone Number [facility] [place] [address] * (ABNORMAL) Comprehensive metabolic panel (07/28/2024 5:08 AM CDT) [facility] Sodium 138 135 - 145 mmol/L Potassium, pl 4.8 3.3 - 4.9 mmol/L [facility] Comment:Hemolyzed; Potassium value may be falsely elevated by as much as 0.3-0.5 mmol/L. Suggest redraw and reanalysis. Chloride 101 97 - 110 mmol/L [facility] CO2 29 22 - 32 mmol/L [facility] Anion gap 8 2 - 15 mmol/L [facility] BUN 23 6 - 25 mg/dL [facility] Creatinine 0.85 0.60 - 1.10 mg/dL [facility] Glucose 173 70 - 199 mg/dL [facility] Comment: Interpretive Data Fasting glucose >/= 126 mg/dl is diagnostic for diabetes. ?? Fasting is defined as no caloric intake for at least 8 hours. Fasting glucose between 100 mg/dl to 125 mg/dl is diagnostic of prediabetes. In a patient with classic symptoms of hyperglycemia or hyperglycemic crisis, a random glucose >/= 200 mg/dl is diagnostic for diabetes. In the absence of unequivocal hyperglycemia, results should be confirmed by repeat testing. The classification and Diagnosis of Diabetes Diabetes Care 2021; 46: S19-S40. Current interpretive data was last revised 2022. Calcium 9.3 8.5 - 10.3 mg/dL [facility] Bilirubin, total 0.3 0.1 - 1.2 mg/dL [facility] Protein, pl 7.1 6.5 - 8.5 g/dL [facility] Albumin 3.2(L) 3.5 - 5.0 g/dL [facility] Alk phos 137(H) 40 - 130 Units/L [facility] ALT 7 7 - 45 Units/L [facility] AST 26 10 - 45 Units/L [facility] Comment:Hemolyzed; result ma y be falsely elevated Blood 07/28/2024 5:08 AM CDT 07/28/2024 5:56 AM CDT Elvira Cooper MD LAB BLOOD ORDERABLES Ayanna l Result [facility] Department [place] [address] * POCT glucose (07/27/2024 8:55 PM CDT) Glucose, POC 139 70 - 199 mg/dL Blood 07/27/2024 8:55 PM CDT 07/27/2024 8:55 PM CDT us Russ Pride MD LAB POCT ORDERABLES - DEVICE Final Result [facility] Department [place] [address] * POCT glucose (07/27/2024 5:11 PM CDT) Glucose, POC 147 70 - 199 mg/dL Blood 07/27/2024 5:11 PM CDT 07/27/2024 5:11 PM CDT Russ Pride MD LAB POCT ORDERABLES - DEVICE Final Result Performing Organization Address [facility] Co de Phone Number [facility] [place] [address] * POCT glucose (07/27/2024 3:57 PM CDT) Glucose, POC 186 70 - 199 mg/dL Blood 07/27/2024 3:57 PM CDT 07/27/2024 3:57 PM CDT Russ Pride MD LAB POCT ORDERABLES - DEVICE Final Result Performing Organization Address [facility] de Phone Number [facility] [place] [address] * POCT glucose (07/27/2024 2:45 PM CDT) Glucose, POC 175 70 - 199 mg/dL Blood 07/27/2024 2:45 PM CDT 07/27/2024 2:45 PM CDT Russ Pride MD LAB POCT ORDERABLES - DEVICE Final Result Performing Organization Address [facility] Co de Phone Number [facility] [place] [address] * TRANSESOPHAGEAL ECHO (CHANCE) W DOPPLER/CF WO CONTRAST (07/27/2024 2:24 PM CDT) Anatomical Region Laterality Modality Echocardiography 07/27/2024 11:1 5 AM CDT Narrative 07/27/2024 4:25 PM CDT Patient name: Loretta Penn Date of test: 07/27/2024 Date of : 1960 (F) Hospital #: 0 ?Location: [facility] Cardiac Diagnostic Lab Interpreted by: Hernan Phelps MD Web Press Operator Assistant: Russel Workman MD RN: Reason for Test: Endocarditis Study quality: Technically good Referring Physician: RUSS PRIDE MD Contrast Agent: Aortic valve: tricuspid, and is minimally thickened, and the motion Normal Aortic root: Normal ? Aortic Arch: Normal Ascending Aorta: Normal ? Descending Aorta: Normal Pulmonic valve: Normal ? Pulmonary Artery: Normal Pulmonary vein: not assessed Mitral valve: Normal, motion Normal, and annulus is Normal Tricuspid valve: Normal, Pulmonic valve: Normal Valvular vegetation: present -tricuspid, Mass/ThrombiLAA thrombus LA Appendage: Thrombus present Wall Motion Scoring (1=Normal 2=Hypo 3=Akinetic 4=Dyskin. 5=Aneurysm 0=Not visualized) Short [facility]:=2 S=2 I=2 P=2 L=2 A=2 Long [facility]:BP=2 BA=2 MP=2 MA=2 AP=2 AA=2 Chamber Dimensions: RA: mildly increased LA: markedly increased RV: mildly dilated LV: moderately dilated LV function: Severe global left ventricular dysfunction. RV function: see Summary Pericardium: No pericardial effusion seen Diastolic function: not assessed Atrial Septum: Normal Wall Thickness: RV: Normal LV: Normal Sedation/Tolerance: ??Sedation: CHANCE performed with intravenous conscious sedation. ??[employer] Admin: ?Propofol 300mg ??Tolerance: Doppler/CF results Aortic Value - Regurgitation: No AR seen Mitral Valve - Regurgitation: Mild-moderate MR Aortic Value - Stenosis: Mitral Valve - Stenosis: Aortic Value - Area: Mitral Value - Area: Aortic Value - Pressure Gradient: Mitral Value - Pressure Gradient: Aortic Value - Pressure Gradient - Peak: Tricuspid: severe TV regurgitation PA Pressure: MV ERO: ??cm2 Regurg. Volume: ??mL/beat Regurg. Fraction: 0 % Complication: None Doppler/CF comments No AR seen, Mild-moderate MR, severe TV regurgitation, Mild CT. ? CHANCE Summary ? Russel Workman performed the CHANCE probe placement with Hernan Phelps MD present. Large (1.0 cm X 1.1 cm) pedunculated vegetation present on the tricupid valve, Other cardiac valves are free of vegetations. Dilated LV with moderate-severe global hypokinesis (estimated LVEF 20-25%). Dilated RV size with seemingly preserved systolic function. Severe TR. Mild-moderate MR. Otherwise, no hemodynamically significant valvular heart disease. Biatrial enlargement. Dilated MAULIK with substantial spontaneous echo contrast and a large laminated hrombus. No interatrial shunt detected on color-flow Doppler imaging.No pericardial effusion. Mild atherosclerosis of the descending aorta. 3D Imaging: This study was supervised and interpreted by Hernan Phelps MD Confirmed on ??07/27/2024 - 16:25:20 by Hernan Phelps MD ?? Audio Technician: Russel Workman By signing this report, the attending general hardware salesperson certifies that he or she has personally supervised and interpreted the echocardiogram and has reviewed and or edited and agrees with the written comments contained within the report. Procedure Note Hernan Phelps MD - 07/27/2024 Patient name: Loretta Penn Date of test: 07/27/2024 Date of : 1960 () [facility] #: 0 Location: [facility] Cardiac Diagnostic Lab Interpreted by: Hernan Phelps MD Web Press Operator Assistant: Russel Workman MD RN: Reason for Test: Endocarditis Study quality: Technically good Referring Physician: RUSS PRIDE MD Contrast Agent: Aortic valve: tricuspid, and is minimally thickened, and the motion Normal Aortic root: Normal Aortic Arch: Normal Ascending Aorta: Normal Descending Aorta: Normal Pulmonic valve: Normal Pulmonary Artery: Normal Pulmonary vein: not assessed Mitral valve: Normal, motion Normal, and annulus is Normal Tricuspid valve: Normal, Pulmonic valve: Normal Valvular vegetation: present -tricuspid, Mass/ThrombiLAA thrombus LA Appendage: Thrombus present Wall Motion Scoring (1=Normal 2=Hypo 3=Akinetic 4=Dyskin. 5=Aneurysm 0=Not visualized) Short [facility]:=2 S=2 I=2 P=2 L=2 A=2 Long [facility]:BP=2 BA=2 MP=2 MA=2 AP=2 AA=2 Chamber Dimensions: RA: mildly increased LA: markedly increased RV: mildly dilated LV: moderately dilated LV function: Severe global left ventricular dysfunction. RV function: see Summary Pericardium: No pericardial effusion seen Diastolic function: not assessed Atrial Septum: Normal Wall Thickness: RV: Normal LV: Normal Sedation/Tolerance: Sedation: CHANCE performed with intravenous conscious sedation. Meds Admin: Propofol 300mg Tolerance: Doppler/CF results Aortic Value - Regurgitation: No AR seen Mitral Valve - Regurgitation: Mild-moderate MR Aortic Value - Stenosis: Mitral Valve - Stenosis: Aortic Value - Area: Mitral Value - Area: Aortic Value - Pressure Gradient: Mitral Value - Pressure Gradient: Aortic Value - Pressure Gradient - Peak: Tricuspid: severe TV regurgitation PA Pressure: MV ERO: cm2 Regurg. Volume: mL/beat Regurg. Fraction: 0 % Complication: None Doppler/CF comments No AR seen, Mild-moderate MR, severe TV regurgitation, Mild CT. CHANCE Summary Russel Workman performed the CHANCE probe placement with Hernan Phelps MD present. Large (1.0 cm X 1.1 cm) pedunculated vegetation present on the tricupid valve, Other cardiac valves are free of vegetations. Dilated LV with moderate-severe global hypokinesis (estimated LVEF 20-25%). Dilated RV size with seemingly preserved systolic function. Severe TR. Mild-moderate MR. Otherwise, no hemodynamically significant valvular heart disease. Biatrial enlargement. Dilated MAULIK with substantial spontaneous echo contrast and a large laminated hrombus. No interatrial shunt detected on color-flow Doppler imaging.No pericardial effusion. Mild atherosclerosis of the descending aorta. 3D Imaging: This study was supervised and interpreted by Hernan Phelps MD Confirmed on 07/27/2024 - 16:25:20 by Hernan Phelps MD Audio Technician: Russel Workman By signing this report, the attending general hardware salesperson certifies that he or she has personally supervised and interpreted the echocardiogram and has reviewed and or edited and agrees with the written comments contained within the report. us Russ Pride MD CV ECHO PROCEDURES Final Resu lt * CT AN PROCEDURE PLACEHOLDER (07/27/2024 1:43 PM CDT) Narrative Madhavi Ramsey CRNA - 07/27/2024 1:43 PM CDT Madhavi Ramsey CRNA ? 07/27/2024 ??1:43 PM Peripheral IV Catheter Patient location: OR Staff: Supervising provider: Suzanne Hernandez MD Placed by: Anesthesiologist: Suzanne Hernandez MD Preprocedure prep: Prep solution: chlorhexadine PPE: gloves and provider hat/mask PIV line: Catheter size: 20 g Technique: direct visualization Procedure details: good blood return and occlusive dressing applied Number of attempts: 1 Assessment: Events: patient tolerated procedure well with no complications Suzanne Hernandez MD ANESTHESIA ORDERABLES Final Result * (ABNORMAL) POCT glucose (07/27/2024 11:27 AM CDT) Glucose, POC 208(H) 70 - 199 mg/dL Blood 07/27/2024 11:2 7 AM CDT 07/27/2024 11:27 AM CDT Russ Pride MD LAB POCT ORDERABLES - DEVICE Final Result [facility] Department [place] [address] * (ABNORMAL) POCT glucose (07/27/2024 8:06 AM CDT) Glucose, POC 216(H) 70 - 199 mg/dL Blood 07/27/2024 8:06 AM CDT 07/27/2024 8:06 AM CDT Russ Pride MD LAB POCT ORDERABLES - DEVICE Final Result Performing Organization Address [facility] de Phone Number [facility] [place] [address] * (ABNORMAL) POCT glucose (07/26/2024 9:02 PM CDT) Glucose, POC 259(H) 70 - 199 mg/dL Blood 07/26/2024 9:02 PM CDT 07/26/2024 9:02 PM CDT Russ Pride MD LAB POCT ORDERABLES - DEVICE Final Result Performing Organization Address [facility] de Phone Number [facility] [place] [address] * (ABNORMAL) POCT glucose (07/26/2024 4:31 PM CDT) Glucose, POC 332(H) 70 - 199 mg/dL Blood 07/26/2024 4:31 PM CDT 07/26/2024 4:31 PM CDT Russ Pride MD LAB POCT ORDERABLES - DEVICE Final Result Performing Organization Address [facility] de Phone Number [facility] [place] [address] * (ABNORMAL) POCT glucose (07/26/2024 4:22 PM CDT) Glucose, POC 344(H) 70 - 199 mg/dL Blood 07/26/2024 4:22 PM CDT 07/26/2024 4:22 PM CDT Russ Pride MD LAB POCT ORDERABLES - DEVICE Final Result Performing Organization Address [facility] de Phone Number [facility] [place] [address] * POCT glucose (07/26/2024 11:49 AM CDT) Glucose, POC 124 70 - 199 mg/dL Blood 07/26/2024 11:4 9 AM CDT 07/26/2024 11:49 AM CDT Russ Pride MD LAB POCT ORDERABLES - DEVICE Final Result Performing Organization Address [facility] Phone Number [facility] [place] [address] * POCT glucose (07/26/2024 8:16 AM CDT) Glucose, POC 146 70 - 199 mg/dL Blood 07/26/2024 8:16 AM CDT 07/26/2024 8:16 AM CDT Russ Pride MD LAB POCT ORDERABLES - DEVICE Final Result Performing Organization Address [facility] de Phone Number [facility] [place] [address] * eGFR (07/25/2024 8:04 PM CDT) eGFR >90 >=60 mL/min/1. 73 m2 Comment: Interpretive Data Reference Interval Normal ?>/= 90 mL/min/1.73m2 Mildly decreased* ? 60 - 89 mL/min/1.73m2 Mildly to moderately decreased ?45 - 59 mL/min/1.73m2 Moderately to severely decreased ??30 - 44 mL/min/1.73m2 Severely decreased ?15 - 29 mL/min/1.73m2 Kidney Failure ?< 15 ??mL/min/1.73m2 *Relative to young adult level Estimated glomerular filtration rate is determined by the 2020 CKD-EPI equation recommended by the National Kidney Foundation (A Unifying Approach to GFR Estimation: Recommendations of the NKF-ASK Task Force on Reassessing the Inclusion of Race in Diagnosing Kidney Disease, JASN 2020). The CKD-EPI equation should not be used for patients with unstable renal function and has not been validated in children and those over 70. Current interpretive data was last reviewed 2021. Blood 07/25/2024 8:04 PM CDT 07/25/2024 8:54 PM CDT us Elvira Cooper MD LAB BLOOD ORDERABLES Ayanna vazquez Result [facility] Department [place] [address] * (ABNORMAL) CBC without differential (07/25/2024 8:04 PM CDT) WBC 10.5(H) 3.8 - 9.9 K/cumm Hgb 12.7 11.9 - 15.5 g/dL [facility] Hct 38.0 35.6 - 45.5 % [facility] Plt 332 150 - 400 K/cumm [facility] MPV 9.4 9.1 - 12.3 fL [facility] RBC 3.92 3.90 - 5.20 M/cumm [facility] MCV 96.9(H) 81.3 - 96.4 fL [facility] MCH 32.4 27.1 - 33.3 pg [facility] MCHC 33.4 32.3 - 35.7 g/dL [facility] RDW CV 12.7 11.1 - 14.9 % [facility] RDW SD 44.7 35.7 - 48.1 fL [facility] NRBC abs 0.00 0.00 - 0.01 K/cumm [facility] Blood 07/25/2024 8:04 PM CDT 07/25/2024 8:53 PM CDT Elvira Cooper MD LAB BLOOD ORDERABLES Ayanna l Result Performing Organization Address City/[facility]/ZIP Co de Phone Number [facility] Department [place] [address] * Magnesium (07/25/2024 8:04 PM CDT) [facility] Magnesium 1.9 1.4 - 2.5 mg/dL Blood 07/25/2024 8:04 PM CDT 07/25/2024 8:54 PM CDT Ynes Roman MD LAB BLOOD ORDERABLES Ayanna l Result Performing Organization Address [facility] de Phone Number [facility] [place] [address] * (ABNORMAL) Comprehensive metabolic panel (07/25/2024 8:04 PM CDT) [facility] Sodium 139 135 - 145 mmol/L Potassium, pl 3.8 3.3 - 4.9 mmol/L [facility] Chloride 99 97 - 110 mmol/L [facility] CO2 37(H) 22 - 32 mmol/L [facility] Anion gap 3 2 - 15 mmol/L [facility] BUN 14 6 - 25 mg/dL [facility] Creatinine 0.71 0.60 - 1.10 mg/dL [facility] Glucose 125 70 - 199 mg/dL [facility] Comment: Interpretive Data Fasting glucose >/= 126 mg/dl is diagnostic for diabetes. ?? Fasting is defined as no caloric intake for at least 8 hours. Fasting glucose between 100 mg/dl to 125 mg/dl is diagnostic of prediabetes. In a patient with classic symptoms of hyperglycemia or hyperglycemic crisis, a random glucose >/= 200 mg/dl is diagnostic for diabetes. In the absence of unequivocal hyperglycemia, results should be confirmed by repeat testing. The classification and Diagnosis of Diabetes Diabetes Care 2021; 46: S19-S40. Current interpretive data was last revised 2022. Calcium 9.7 8.5 - 10.3 mg/dL [facility] Bilirubin, total 0.3 0.1 - 1.2 mg/dL [facility] Protein, pl 7.7 6.5 - 8.5 g/dL [facility] Albumin 3.4(L) 3.5 - 5.0 g/dL [facility] Alk phos 138(H) 40 - 130 Units/L [facility] ALT 13 7 - 45 Units/L [facility] AST 32 10 - 45 Units/L [facility] Blood 07/25/2024 8:04 PM CDT 07/25/2024 8:54 PM CDT us Elvira Cooper MD LAB BLOOD ORDERABLES Ayanna l Result [facility] [place] [address] * POCT glucose (07/25/2024 8:00 PM CDT) Glucose, POC 124 70 - 199 mg/dL Blood 07/25/2024 8:00 PM CDT 07/25/2024 8:00 PM CDT us Russ Pride MD LAB POCT ORDERABLES - DEVICE Final Result [facility] [place] [address] * (ABNORMAL) POCT glucose (07/25/2024 5:16 PM CDT) Glucose, POC 244(H) 70 - 199 mg/dL Blood 07/25/2024 5:16 PM CDT 07/25/2024 5:16 PM CDT Russ Pride MD LAB POCT ORDERABLES - DEVICE Final Result [facility] Department [place] [address] * IR Follow Up Inpatient (07/25/2024 3:47 PM CDT) Anatomical Region Laterality Modality Radio Fluoroscop y 07/25/2024 3:54 PM CDT Impressions 07/25/2024 4:39 PM CDT Canceled non-tunneled central venous catheter placement due to changes of antibiotic regimen and incomplete discharge plan. If it is determined that a line is still needed once the discharge plan has been determined a new consult can be placed. Dictated by: Terrance Martinez MD --- Electronically signed by: Maria Luisa Coats MD Narrative 07/25/2024 4:39 PM CDT EXAMINATION: ??INTERVENTIONAL RADIOLOGY FOLLOW-UP VISIT REFERRAL: ??Dr. RUSS PRIDE has referred this patient for non-tunneled central venous catheter compared (lazaro) placement. 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 ??IR was consulted for non-tunneled central venous catheter placement for long-term outpatient antibiotics. ? PROCEDURE: After placement of the consult the infectious disease team placed a note stating concerns about safety of home infusion and there was a change in the antibiotic plan to a dose of dalbavancin now and in 1 week. ??As the patient has working peripheral IVs to receive further treatment while admitted and no discharge plan is in place the procedure was canceled to avoid a potential unnecessary procedure. Procedure Note Maria Luisa Coats MD PhD - 07/25/2024 EXAMINATION: INTERVENTIONAL RADIOLOGY FOLLOW-UP VISIT REFERRAL: Dr. RUSS PRIDE has referred this patient for non-tunneled central venous catheter compared (lazaro) placement. 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 IR was consulted for non-tunneled central venous catheter placement for long-term outpatient antibiotics. PROCEDURE: After placement of the consult the infectious disease team placed a note stating concerns about safety of home infusion and there was a change in the antibiotic plan to a dose of dalbavancin now and in 1 week. As the patient has working peripheral IVs to receive further treatment while admitted and no discharge plan is in place the procedure was canceled to avoid a potential unnecessary procedure. IMPRESSION: Canceled non-tunneled central venous catheter placement due to changes of antibiotic regimen and incomplete discharge plan. If it is determined that a line is still needed once the discharge plan has been determined a new consult can be placed. Dictated by: Terrance Martinez MD --- Electronically signed by: Maria Luisa Coats MD Russ Pride MD IMG IR PROCEDURES Final Resul t * POCT glucose (07/25/2024 3:00 PM CDT) Glucose, POC 104 70 - 199 mg/dL Blood 07/25/2024 3:00 PM CDT 07/25/2024 3:00 PM CDT Russ Pride MD LAB POCT ORDERABLES - DEVICE Final Result Performing Organization Address [facility] Co de Phone Number [facility] [place] [address] * POCT glucose (07/25/2024 11:57 AM CDT) Glucose, POC 89 70 - 199 mg/dL Blood 07/25/2024 11:5 7 AM CDT 07/25/2024 11:57 AM CDT Russ Pride MD LAB POCT ORDERABLES - DEVICE Final Result Performing Organization Address [facility] Co de Phone Number [facility] [place] [address] * (ABNORMAL) POCT glucose (07/25/2024 8:25 AM CDT) Glucose, POC 215(H) 70 - 199 mg/dL Blood 07/25/2024 8:25 AM CDT 07/25/2024 8:25 AM CDT us Russ Pride MD LAB POCT ORDERABLES - DEVICE Final Result [facility] Department [place] [address] * eGFR (07/24/2024 10:31 PM CDT) eGFR 79 >=60 mL/min/1. 73 m2 Comment: Interpretive Data Reference Interval Normal ?>/= 90 mL/min/1.73m2 Mildly decreased* ? 60 - 89 mL/min/1.73m2 Mildly to moderately decreased ?45 - 59 mL/min/1.73m2 Moderately to severely decreased ??30 - 44 mL/min/1.73m2 Severely decreased ?15 - 29 mL/min/1.73m2 Kidney Failure ?< 15 ??mL/min/1.73m2 *Relative to young adult level Estimated glomerular filtration rate is determined by the 2020 CKD-EPI equation recommended by the National Kidney Foundation (A Unifying Approach to GFR Estimation: Recommendations of the NKF-ASK Task Force on Reassessing the Inclusion of Race in Diagnosing Kidney Disease, JASN 2020). The CKD-EPI equation should not be used for patients with unstable renal function and has not been validated in children and those over 70. Current interpretive data was last reviewed 2021. Blood 07/24/2024 10:3 1 PM CDT 07/24/2024 10:50 PM CDT us Elvira Cooper MD LAB BLOOD ORDERABLES Ayanna l Result Performing Organization Address [facility] Co de Phone Number [facility] Department [place] [address] * (ABNORMAL) Protime-INR (07/24/2024 10:31 PM CDT) Pathologist [facility] [place] PT 13.2(H) 9.7 - 13.0 sec INR 1.22(H) 0.90 - 1.20 [facility] Comment: Interpretive data Oral anticoagulant therapeutic ranges: Venous thromboembolism prophylaxis or treatment: 2.0-3.0 CARDIOLOGY Standard range: 2.0-3.0 High-intensity range: 2.5-3.5 Refer to indication-specific guidelines for appropriate target ranges for prosthetic heart valve replacement. Current interpretive data was last revised on 2019. Blood 07/24/2024 10:3 1 PM CDT 07/24/2024 10:58 PM CDT Russ Pride MD LAB BLOOD ORDERABLES Final Re sult Performing Organization Address [facility] Co de Phone Number [facility] Department [place] [address] * (ABNORMAL) CBC without differential (07/24/2024 10:31 PM CDT) [facility] WBC 6.7 3.8 - 9.9 K/cumm Hgb 12.1 11.9 - 15.5 g/dL [facility] Hct 36.5 35.6 - 45.5 % [facility] Plt 333 150 - 400 K/cumm [facility] MPV 9.3 9.1 - 12.3 fL [facility] RBC 3.79(L) 3.90 - 5.20 M/cumm [facility] MCV 96.3 81.3 - 96.4 fL [facility] MCH 31.9 27.1 - 33.3 pg [facility] MCHC 33.2 32.3 - 35.7 g/dL [facility] RDW CV 13.0 11.1 - 14.9 % [facility] RDW SD 46.4 35.7 - 48.1 fL [facility] NRBC abs 0.00 0.00 - 0.01 K/cumm [facility] Blood 07/24/2024 10:3 1 PM CDT 07/24/2024 10:50 PM CDT Elvira Cooper MD LAB BLOOD ORDERABLES Ayanna l Result Performing Organization Address City/[facility]/ZIP Co de Phone Number [facility] [place] [address] * Magnesium (07/24/2024 10:31 PM CDT) [facility] Magnesium 2.0 1.4 - 2.5 mg/dL Blood 07/24/2024 10:3 1 PM CDT 07/24/2024 10:50 PM CDT Ynes Roman MD LAB BLOOD ORDERABLES Ayanna l Result Performing Organization Address [facility] de Phone Number [facility] [place] [address] * (ABNORMAL) Comprehensive metabolic panel (07/24/2024 10:31 PM CDT) [facility] Sodium 135 135 - 145 mmol/L Potassium, pl 4.3 3.3 - 4.9 mmol/L [facility] Chloride 98 97 - 110 mmol/L [facility] CO2 27 22 - 32 mmol/L [facility] Anion gap 10 2 - 15 mmol/L [facility] BUN 22 6 - 25 mg/dL [facility] Creatinine 0.84 0.60 - 1.10 mg/dL [facility] Glucose 297(H) 70 - 199 mg/dL [facility] Comment: Interpretive Data Fasting glucose >/= 126 mg/dl is diagnostic for diabetes. ?? Fasting is defined as no caloric intake for at least 8 hours. Fasting glucose between 100 mg/dl to 125 mg/dl is diagnostic of prediabetes. In a patient with classic symptoms of hyperglycemia or hyperglycemic crisis, a random glucose >/= 200 mg/dl is diagnostic for diabetes. In the absence of unequivocal hyperglycemia, results should be confirmed by repeat testing. The classification and Diagnosis of Diabetes Diabetes Care 2021; 46: S19-S40. Current interpretive data was last revised 2022. Calcium 9.6 8.5 - 10.3 mg/dL [facility] Bilirubin, total 0.2 0.1 - 1.2 mg/dL [facility] Protein, pl 7.8 6.5 - 8.5 g/dL [facility] Albumin 3.6 3.5 - 5.0 g/dL [facility] Alk phos 175(H) 40 - 130 Units/L [facility] ALT 9 7 - 45 Units/L [facility] AST 27 10 - 45 Units/L [facility] Blood 07/24/2024 10:3 1 PM CDT 07/24/2024 10:50 PM CDT us Elvira Cooper MD LAB BLOOD ORDERABLES Ayanna l Result [facility] [place] [address] * (ABNORMAL) POCT glucose (07/24/2024 11:15 AM CDT) [facility] Glucose, POC 329(H) 70 - 199 mg/dL Comment:Glu2: RN/MD Notified Glucose comment 1 Glu2: RN/MD Notified [facility] Blood 07/24/2024 11:1 5 AM CDT 07/24/2024 11:15 AM CDT us Russ Pride MD LAB POCT ORDERABLES - DEVICE Final Result [facility] [place] [address] * (ABNORMAL) POCT glucose (07/24/2024 8:54 AM CDT) Glucose, POC 206(H) 70 - 199 mg/dL Blood 07/24/2024 8:54 AM CDT 07/24/2024 8:54 AM CDT Russ Pride MD LAB POCT ORDERABLES - DEVICE Final Result Performing Organization Address City/[facility]/ZIP Co de Phone Number [facility] Department [place] [address] * (ABNORMAL) POCT glucose (07/24/2024 8:30 AM CDT) Glucose, POC 220(H) 70 - 199 mg/dL Blood 07/24/2024 8:30 AM CDT 07/24/2024 8:30 AM CDT Russ Pride MD LAB POCT ORDERABLES - DEVICE Final Result Performing Organization Address [facility] de Phone Number [facility] Department [place] [address] * eGFR (07/23/2024 8:40 PM CDT) eGFR 60 >=60 mL/min/1. 73 m2 Comment: Interpretive Data Reference Interval Normal ?>/= 90 mL/min/1.73m2 Mildly decreased* ? 60 - 89 mL/min/1.73m2 Mildly to moderately decreased ?45 - 59 mL/min/1.73m2 Moderately to severely decreased ??30 - 44 mL/min/1.73m2 Severely decreased ?15 - 29 mL/min/1.73m2 Kidney Failure ?< 15 ??mL/min/1.73m2 *Relative to young adult level Estimated glomerular filtration rate is determined by the 2020 CKD-EPI equation recommended by the National Kidney Foundation (A Unifying Approach to GFR Estimation: Recommendations of the NKF-ASK Task Force on Reassessing the Inclusion of Race in Diagnosing Kidney Disease, JASN 202). The CKD-EPI equation should not be used for patients with unstable renal function and has not been validated in children and those over 70. Current interpretive data was last reviewed 2021. Blood 07/23/2024 8:40 PM CDT 07/23/2024 9:17 PM CDT us Elvira Cooper MD LAB BLOOD ORDERABLES Ayanna vazquez Result [facility] Department [place] [address] * (ABNORMAL) CBC without differential (07/23/2024 8:40 PM CDT) WBC 5.4 3.8 - 9.9 K/cumm Hgb 11.6(L) 11.9 - 15.5 g/dL [facility] Hct 36.1 35.6 - 45.5 % [facility] Plt 319 150 - 400 K/cumm [facility] MPV 9.5 9.1 - 12.3 fL [facility] RBC 3.63(L) 3.90 - 5.20 M/cumm [facility] MCV 99.4(H) 81.3 - 96.4 fL [facility] MCH 32.0 27.1 - 33.3 pg [facility] MCHC 32.1(L) 32.3 - 35.7 g/dL [facility] RDW CV 13.2 11.1 - 14.9 % [facility] RDW SD 48.3(H) 35.7 - 48.1 fL [facility] NRBC abs 0.00 0.00 - 0.01 K/cumm [facility] Blood 07/23/2024 8:40 PM CDT 07/23/2024 9:18 PM CDT Elvira Cooper MD LAB BLOOD ORDERABLES Ayanna l Result Performing Organization Address City/[facility]/ZIP Co de Phone Number [facility] Department [place] [address] * Magnesium (07/23/2024 8:40 PM CDT) Pathologist [facility] [place] Magnesium 1.9 1.4 - 2.5 mg/dL Blood 07/23/2024 8:40 PM CDT 07/23/2024 9:17 PM CDT Ynes Roman MD LAB BLOOD ORDERABLES Ayanna l Result Performing Organization Address [facility] de Phone Number [facility] Department [place] [address] * (ABNORMAL) Comprehensive metabolic panel (07/23/2024 8:40 PM CDT) [facility] Sodium 136 135 - 145 mmol/L Potassium, pl 4.2 3.3 - 4.9 mmol/L [facility] Chloride 98 97 - 110 mmol/L [facility] CO2 27 22 - 32 mmol/L [facility] Anion gap 11 2 - 15 mmol/L [facility] BUN 25 6 - 25 mg/dL [facility] Creatinine 1.05 0.60 - 1.10 mg/dL [facility] Glucose 218(H) 70 - 199 mg/dL [facility] Comment: Interpretive Data Fasting glucose >/= 126 mg/dl is diagnostic for diabetes. ?? Fasting is defined as no caloric intake for at least 8 hours. Fasting glucose between 100 mg/dl to 125 mg/dl is diagnostic of prediabetes. In a patient with classic symptoms of hyperglycemia or hyperglycemic crisis, a random glucose >/= 200 mg/dl is diagnostic for diabetes. In the absence of unequivocal hyperglycemia, results should be confirmed by repeat testing. The classification and Diagnosis of Diabetes Diabetes Care 2021; 46: S19-S40. Current interpretive data was last revised 2022. Calcium 9.0 8.5 - 10.3 mg/dL [facility] Bilirubin, total 0.2 0.1 - 1.2 mg/dL [facility] Protein, pl 7.4 6.5 - 8.5 g/dL [facility] Albumin 3.3(L) 3.5 - 5.0 g/dL [facility] Alk phos 151(H) 40 - 130 Units/L [facility] ALT 12 7 - 45 Units/L [facility] 33 10 - 45 Units/L [facility] Blood 07/23/2024 8:40 PM CDT 07/23/2024 9:17 PM CDT us Elvira Cooper MD LAB BLOOD ORDERABLES Ayanna l Result Performing Organization Address [facility] Co de Phone Number [facility] Department [place] [address] * (ABNORMAL) POCT glucose (07/23/2024 8:24 PM CDT) Glucose, POC 248(H) 70 - 199 mg/dL Blood 07/23/2024 8:24 PM CDT 07/23/2024 8:24 PM CDT Russ Pride MD LAB POCT ORDERABLES - DEVICE Final Result Performing Organization Address City/[facility]/ZIP Co de Phone Number [facility] [place] [address] * (ABNORMAL) POCT glucose (07/23/2024 5:45 PM CDT) Glucose, POC 251(H) 70 - 199 mg/dL Blood 07/23/2024 5:45 PM CDT 07/23/2024 5:45 PM CDT Russ Pride MD LAB POCT ORDERABLES - DEVICE Final Result Performing Organization Address City/[facility]/ZIP Co de Phone Number [facility] [place] [facility] Department [place] [address] * (ABNORMAL) POCT glucose (07/23/2024 12:18 PM CDT) Glucose, POC 286(H) 70 - 199 mg/dL Blood 07/23/2024 12:1 8 PM CDT 07/23/2024 12:18 PM CDT us Russ Pride MD LAB POCT ORDERABLES - DEVICE Final Result Performing Organization Address [facility] Co de Phone Number [facility] ALEXANDER [facility] [facility] Department [place] [address] * PET/CT FDG Skull to Thigh (07/23/2024 11:42 AM CDT) Anatomical Region Laterality Modality N/A Positron Emissio n Tomography (PET) 07/23/2024 2:15 PM CDT Impressions 07/23/2024 3:12 PM CDT 1. ??No FDG PET/CT evidence of osteomyelitis or any other site of primary infectious process. ?? 2. ??No FDG PET CT evidence of active inflammatory process in the lungs are myocardium. Dictated by: Truong Jeffers MD The radiology attending physician has personally reviewed this study, and had reviewed and/or edited this written report and agrees with it. Electronically signed by: Jason Estevez MD Narrative 07/23/2024 3:12 PM CDT EXAMINATION: TUMOR FDG-PET/CT IMAGING DATE OF STUDY: ??07/23/2024 SCANNER: [employer] N PET Vision (NV1). ??This is a high-resolution scanner, which can result in higher SUVs (and even detection of new small lesions) compared to older scanners. RADIOPHARMACEUTICAL: 17.34 mCi F-18 Fluorodeoxyglucose (FDG) i.v. Injection site: Right hand. HISTORY: 63-year-old woman past medical history of MSSA bacteremia (05/2024), atrial fibrillation, heart failure, diabetes and hypothyroidism presenting with back pain on 06/28/2024. ??She was found to have blood cultures positive for staph aureus. 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 ??ICD removal from 07/13/2024. ??Patient cannot undergo MRI due to the retained wire in the pulmonary artery. ??The study is requested for clinical concern of osteomyelitis and sarcoidosis. Initial treatment strategy. TECHNIQUE: ??The patient's fasting blood glucose level, measured by glucometer before injection of FDG, was 207 mg/dL. ?? After intravenous administration of FDG, noncontrast CT images were obtained for attenuation correction and for fusion with emission PET images to allow for anatomical localization of PET findings. Emission PET images were then obtained. ??The study was interpreted on the [employer] workstation. ??The mean liver SUV (reported for quality control microbiology supervisor purposes) is 3.0. ??For evaluation of sarcoidosis, patient swallowed a sarcoid diet and ate last at 6:00 PM yesterday. The 1st scanned area was skull base to pelvis, Images of the body were obtained starting 73 minutes after injection of tracer to cover the entire spine. The 2nd scanned area was thorax and upper abdomen, Images of the body were obtained starting 84 minutes after injection of tracer as a part of cardiac acquisition for sarcoid evaluation. All reported SUVs are maximum SUVs, unless otherwise specified. COMPARISON: Myocardial imaging 07/17/2024. ??CT chest abdomen pelvis 06/28/2024 and 07/06/2024. DESCRIPTORS OF LESION FDG AVIDITY: Minimal: ? <= blood pool ? Mild: ?> blood pool and <= liver ? Moderate: ?? > liver and <= 2x SUVmax liver ? Moderate to marked: ?? >2x SUVmax liver and <= 3x SUVmax liver ? Marked: ? > 3x SUVmax liver ? FINDINGS: There is a 3 cm hypodense collection in the left upper anterior chest wall (axial image 60) with mildly hypermetabolic regional fat stranding tracking up to the adjacent skin, in keeping with post -recent ICD removal inflammatory changes. ?? 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 There is mild to moderate uptake along the right C3-C4, right L3-4 and L4-5 facet joints and left T5 and T6 posterior costovertebral joints favored to be degenerative. Interval decrease in the size of pulmonary nodules seen on CT chest 07/06/2024, for example, a nodule in the posterior segment of right upper lobe measures 9 mm (axial image 100), measured 13.5 mm on 07/06/2024, these nodules do not show significant FDG uptake . Additional CT findings: Cardiomegaly. Enlarged pulmonary artery. Linear hyperdensity in the right lower lobe pulmonary artery likely represents retained catheter. Small hiatal hernia. Multilevel degenerative spine disease. ?? Findings for the cardiac portion of the PET/CT were reviewed with Dr. Walker. Procedure Note Jason Estevez MD - 07/23/2024 EXAMINATION: TUMOR FDG-PET/CT IMAGING DATE OF STUDY: 07/23/2024 SCANNER: [facility] Re[employer]ipe (NV1). This is a high-resolution scanner, which can result in higher SUVs (and even detection of new small lesions) compared to older scanners. RADIOPHARMACEUTICAL: 17.34 mCi F-18 Fluorodeoxyglucose (FDG) i.v. Injection site: Right hand. HISTORY: 63-year-old woman past medical history of MSSA bacteremia (05/2024), atrial fibrillation, heart failure, diabetes and hypothyroidism presenting with back pain on 06/28/2024. She was found to have blood cultures positive for staph aureus. 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 ICD removal from 07/13/2024. Patient cannot undergo MRI due to the retained wire in the pulmonary artery. The study is requested for clinical concern of osteomyelitis and sarcoidosis. Initial treatment strategy. TECHNIQUE: The patient's fasting blood glucose level, measured by glucometer before injection of FDG, was 207 mg/dL. After intravenous administration of FDG, noncontrast CT images were obtained for attenuation correction and for fusion with emission PET images to allow for anatomical localization of PET findings. Emission PET images were then obtained. The study was interpreted on the [employer] workstation. The mean liver SUV (reported for quality control microbiology supervisor purposes) is 3.0. For evaluation of sarcoidosis, patient swallowed a sarcoid diet and ate last at 6:00 PM yesterday. The 1st scanned area was skull base to pelvis, Images of the body were obtained starting 73 minutes after injection of tracer to cover the entire spine. The 2nd scanned area was thorax and upper abdomen, Images of the body were obtained starting 84 minutes after injection of tracer as a part of cardiac acquisition for sarcoid evaluation. All reported SUVs are maximum SUVs, unless otherwise specified. COMPARISON: Myocardial imaging 07/17/2024. CT chest abdomen pelvis 06/28/2024 and 07/06/2024. DESCRIPTORS OF LESION FDG AVIDITY: Minimal: <= blood pool Mild: > blood pool and <= liver Moderate: > liver and <= 2x SUVmax liver Moderate to marked: >2x SUVmax liver and <= 3x SUVmax liver Marked: > 3x SUVmax liver FINDINGS: There is a 3 cm hypodense collection in the left upper anterior chest wall (axial image 60) with mildly hypermetabolic regional fat stranding tracking up to the adjacent skin, in keeping with post -recent ICD removal inflammatory changes. 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 There is mild to moderate uptake along the right C3-C4, right L3-4 and L4-5 facet joints and left T5 and T6 posterior costovertebral joints favored to be degenerative. Interval decrease in the size of pulmonary nodules seen on CT chest 07/06/2024, for example, a nodule in the posterior segment of right upper lobe measures 9 mm (axial image 100), measured 13.5 mm on 07/06/2024, these nodules do not show significant FDG uptake . Additional CT findings: Cardiomegaly. Enlarged pulmonary artery. Linear hyperdensity in the right lower lobe pulmonary artery likely represents retained catheter. Small hiatal hernia. Multilevel degenerative spine disease. Findings for the cardiac portion of the PET/CT were reviewed with Dr. Walker. IMPRESSION: 1. No FDG PET/CT evidence of osteomyelitis or any other site of primary infectious process. 2. No FDG PET CT evidence of active inflammatory process in the lungs are myocardium. Dictated by: Truong Jeffers MD The radiology attending physician has personally reviewed this study, and had reviewed and/or edited this written report and agrees with it. Electronically signed by: Jason Estevez MD us Ynes Roman MD IMG PET PROCEDURES Final Result * POCT glucose (07/22/2024 5:02 PM CDT) Glucose, POC 110 70 - 199 mg/dL Blood 07/22/2024 5:02 PM CDT 07/22/2024 5:02 PM CDT Russ Pride MD LAB POCT ORDERABLES - DEVICE Final Result Performing Organization Address [facility]/ZIP Co de Phone Number [facility] [place] [place] [address] * POCT glucose (07/22/2024 3:46 PM CDT) Glucose, POC 76 70 - 199 mg/dL Blood 07/22/2024 3:46 PM CDT 07/22/2024 3:46 PM CDT Russ Pride MD LAB POCT ORDERABLES - DEVICE Final Result Performing Organization Address [facility]/ZIP Co de Phone Number [facility] [place] [address] * (ABNORMAL) POCT glucose (07/22/2024 12:16 PM CDT) Glucose, POC 312(H) 70 - 199 mg/dL Blood 07/22/2024 12:1 6 PM CDT 07/22/2024 12:16 PM CDT Russ Pride MD LAB POCT ORDERABLES - DEVICE Final Result Performing Organization Address [facility] Phone Number [facility] [place] [address] * (ABNORMAL) POCT glucose (07/22/2024 8:41 AM CDT) Glucose, POC 239(H) 70 - 199 mg/dL Blood 07/22/2024 8:41 AM CDT 07/22/2024 8:41 AM CDT Russ Pride MD LAB POCT ORDERABLES - DEVICE Final Result Performing Organization Address [facility] Phone Number [facility] [place] [address] * (ABNORMAL) POCT glucose (07/21/2024 8:40 PM CDT) Glucose, POC 235(H) 70 - 199 mg/dL Blood 07/21/2024 8:40 PM CDT 07/21/2024 8:40 PM CDT Russ Pride MD LAB POCT ORDERABLES - DEVICE Final Result Performing Organization Address [facility] de Phone Number [facility] [place] [address] * (ABNORMAL) POCT glucose (07/21/2024 5:12 PM CDT) Glucose, POC 214(H) 70 - 199 mg/dL Blood 07/21/2024 5:12 PM CDT 07/21/2024 5:12 PM CDT Russ Pride MD LAB POCT ORDERABLES - DEVICE Final Result Performing Organization Address [facility]/ZIP Co de Phone Number [facility] [place] [address] * POCT glucose (07/21/2024 3:02 PM CDT) Glucose, POC 113 70 - 199 mg/dL Blood 07/21/2024 3:02 PM CDT 07/21/2024 3:02 PM CDT us Russ Pride MD LAB POCT ORDERABLES - DEVICE Final Result Performing Organization Address [facility] [place] [address] * (ABNORMAL) POCT glucose (07/21/2024 2:14 PM CDT) Glucose, POC 55(L) 70 - 199 mg/dL Blood 07/21/2024 2:14 PM CDT 07/21/2024 2:14 PM CDT Russ Pride MD LAB POCT ORDERABLES - DEVICE Final Result Performing Organization Address [facility] Co de Phone Number [facility] [place] [address] * POCT glucose (07/21/2024 12:11 PM CDT) Glucose, POC 156 70 - 199 mg/dL Blood 07/21/2024 12:1 1 PM CDT 07/21/2024 12:11 PM CDT Russ Pride MD LAB POCT ORDERABLES - DEVICE Final Result Performing Organization Address [facility] Co de Phone Number [facility] [place] [address] * POCT glucose (07/21/2024 9:15 AM CDT) Glucose, POC 186 70 - 199 mg/dL Blood 07/21/2024 9:15 AM CDT 07/21/2024 9:15 AM CDT us Russ Pride MD LAB POCT ORDERABLES - DEVICE Final Result Performing Organization Address City/State/ZIP Co sd Phone Number [facility] Department [place] [address] * eGFR (07/20/2024 8:23 PM CDT) eGFR 69 >=60 mL/min/1. 73 m2 Comment: Interpretive Data Reference Interval Normal ?>/= 90 mL/min/1.73m2 Mildly decreased* ? 60 - 89 mL/min/1.73m2 Mildly to moderately decreased ?45 - 59 mL/min/1.73m2 Moderately to severely decreased ??30 - 44 mL/min/1.73m2 Severely decreased ?15 - 29 mL/min/1.73m2 Kidney Failure ?< 15 ??mL/min/1.73m2 *Relative to young adult level Estimated glomerular filtration rate is determined by the 2020 CKD-EPI equation recommended by the National Kidney Foundation (A Unifying Approach to GFR Estimation: Recommendations of the NKF-ASK Task Force on Reassessing the Inclusion of Race in Diagnosing Kidney Disease, JASN 2020). The CKD-EPI equation should not be used for patients with unstable renal function and has not been validated in children and those over 70. Current interpretive data was last reviewed 2021. Blood 07/20/2024 8:23 PM CDT 07/20/2024 8:50 PM CDT us Elvira Cooper MD LAB BLOOD ORDERABLES Ayanna l Result Performing Organization Address [facility] Co de Phone Number [facility] [place] [address] * (ABNORMAL) CBC without differential (07/20/2024 8:23 PM CDT) WBC 5.1 3.8 - 9.9 K/cumm Hgb 11.2(L) 11.9 - 15.5 g/dL [facility] Hct 34.8(L) 35.6 - 45.5 % [facility] Plt 279 150 - 400 K/cumm [facility] MPV 9.7 9.1 - 12.3 fL [facility] RBC 3.49(L) 3.90 - 5.20 M/cumm [facility] MCV 99.7(H) 81.3 - 96.4 fL [facility] MCH 32.1 27.1 - 33.3 pg [facility] MCHC 32.2(L) 32.3 - 35.7 g/dL [facility] RDW CV 13.6 11.1 - 14.9 % [facility] RDW SD 49.9(H) 35.7 - 48.1 fL [facility] NRBC abs 0.00 0.00 - 0.01 K/cumm [facility] Blood 07/20/2024 8:23 PM CDT 07/20/2024 8:50 PM CDT Elvira Cooper MD LAB BLOOD ORDERABLES Ayanna l Result [facility] [place] [address] * Magnesium (07/20/2024 8:23 PM CDT) Magnesium 2.1 1.4 - 2.5 mg/dL Blood 07/20/2024 8:23 PM CDT 07/20/2024 8:50 PM CDT Ynes Roman MD LAB BLOOD ORDERABLES Ayanna vazquez Result [facility] Department [place] [address] * (ABNORMAL) Comprehensive metabolic panel (07/20/2024 8:23 PM CDT) Sodium 139 135 - 145 mmol/L Potassium, pl 4.5 3.3 - 4.9 mmol/L [facility] Chloride 101 97 - 110 mmol/L [facility] CO2 27 22 - 32 mmol/L [facility] Anion gap 11 2 - 15 mmol/L [facility] BUN 22 6 - 25 mg/dL [facility] Creatinine 0.94 0.60 - 1.10 mg/dL [facility] Glucose 159 70 - 199 mg/dL [facility] Comment: Interpretive Data Fasting glucose >/= 126 mg/dl is diagnostic for diabetes. ?? Fasting is defined as no caloric intake for at least 8 hours. Fasting glucose between 100 mg/dl to 125 mg/dl is diagnostic of prediabetes. In a patient with classic symptoms of hyperglycemia or hyperglycemic crisis, a random glucose >/= 200 mg/dl is diagnostic for diabetes. In the absence of unequivocal hyperglycemia, results should be confirmed by repeat testing. The classification and Diagnosis of Diabetes Diabetes Care 202; 46: S19-S40. Current interpretive data was last revised 2022. Calcium 9.8 8.5 - 10.3 mg/dL [facility] Bilirubin, total 0.2 0.1 - 1.2 mg/dL [facility] Protein, pl 7.5 6.5 - 8.5 g/dL [facility] Albumin 3.4(L) 3.5 - 5.0 g/dL [facility] Alk phos 155(H) 40 - 130 Units/L [facility] ALT 7 7 - 45 Units/L [facility] AST 29 10 - 45 Units/L [facility] Blood 07/20/2024 8:23 PM CDT 07/20/2024 8:50 PM CDT us Elvira Cooper MD LAB BLOOD ORDERABLES Ayanna l Result Performing Organization Address City/[facility]/ZIP Co de Phone Number [facility] [place] [address] * POCT glucose (07/20/2024 7:44 PM CDT) Glucose, POC 165 70 - 199 mg/dL Blood 07/20/2024 7:44 PM CDT 07/20/2024 7:44 PM CDT us Ynes Roman MD LAB POCT ORDERABLES - DEV ICE Final Result Performing Organization Address [facility] Co de Phone Number [facility] [place] [address] * POCT glucose (07/20/2024 5:55 PM CDT) Glucose, POC 92 70 - 199 mg/dL Blood 07/20/2024 5:55 PM CDT 07/20/2024 5:55 PM CDT us Ynes Roman MD LAB POCT ORDERABLES - DEV ICE Final Result Performing Organization Address [facility] Co de Phone Number [facility] [place] [address] * POCT glucose (07/20/2024 12:08 PM CDT) Glucose, POC 173 70 - 199 mg/dL Blood 07/20/2024 12:0 8 PM CDT 07/20/2024 12:08 PM CDT us Ynes Roman MD LAB POCT ORDERABLES - DEV ICE Final Result Performing Organization Address City/[facility]/ZIP Co de Phone Number [facility] [place] [address] * POCT glucose (07/20/2024 8:19 AM CDT) Glucose, POC 170 70 - 199 mg/dL Blood 07/20/2024 8:19 AM CDT 07/20/2024 8:19 AM CDT Ynes Roman MD LAB POCT ORDERABLES - DEV ICE Final Result [facility] Department [place] [address] * (ABNORMAL) Urinalysis reflex to microscopic and culture Urine, clean voided (07/20/2024 7:06 AM CDT) Color, ur Straw Yellow Clarity, ur Clear Clear [facility] Specific gravity, ur 1.008 1.003 - 1.030 [facility] pH, urine 7.0 [facility] Comment: Interpretive Data ? Urine pH is affected by diet, medications, systemic acid-base disturbances, and renal tubular function. ??pH may affect urinary stone formation. ??For example, urine pH below 6.0 may help reduce the tendency for calcium phosphate stones and pH greater than 6.0 may reduce the tendency for uric acid stone formation. Source: [facility] [employer] Current Interpretive Data was last revised on 2017 Protein, ur ql Negative Negative [facility] Glucose, ur ql Trace(A) Negative [facility] Ketones, ur Negative Negative [facility] Bilirubin, ur Negative Negative [facility] Blood, ur 1+(A) Negative [facility] Urobilinogen, ur <2.0 <2.0 mg/dL [facility] Nitrite, ur Negative Negative [facility] Leukocyte esterase, ur Negative Negative [facility] UA reflex comment Reflex to microscopic UA will be performed. [facility] Urine, clean voided 07/20/2024 7:06 AM CDT 07/20/2024 8:11 AM CDT us Ynes Roman MD LAB MICROBIOLOGY - GENERA L ORDERABLES Final Result Performing Organization Address [facility] Co de Phone Number [facility] [place] [address] * (ABNORMAL) Urinalysis, microscopic only (07/20/2024 7:06 AM CDT) WBC, ur 0-5 0 - 5 /HPF RBC, ur 0-2 0 - 2 /HPF [facility] Epithelial cells, squamous, ur 1-5 0 - 5 /HPF [facility] Epithelial cells, transitional, ur 1-5 0 - 0 /HPF [facility] Bacteria, ur 1+(A) [facility] Culture Reflex Comment Reflex conditions for urine culture (WBC >10) not met. [facility] Urine, clean voided 07/20/2024 7:06 AM CDT 07/20/2024 8:11 AM CDT Ynes Roman MD LAB URINE ORDERABLES Ayanna l Result Performing Organization Address [facility] de Phone Number [facility] Department [place] [address] * (ABNORMAL) eGFR (07/19/2024 9:57 PM CDT) eGFR 57(L) >=60 mL/min/1. 73 m2 Comment: Interpretive Data Reference Interval Normal ?>/= 90 mL/min/1.73m2 Mildly decreased* ? 60 - 89 mL/min/1.73m2 Mildly to moderately decreased ?45 - 59 mL/min/1.73m2 Moderately to severely decreased ??30 - 44 mL/min/1.73m2 Severely decreased ?15 - 29 mL/min/1.73m2 Kidney Failure ?< 15 ??mL/min/1.73m2 *Relative to young adult level Estimated glomerular filtration rate is determined by the 2020 CKD-EPI equation recommended by the National Kidney Foundation (A Unifying Approach to GFR Estimation: Recommendations of the NKF-ASK Task Force on Reassessing the Inclusion of Race in Diagnosing Kidney Disease, JASN 202). The CKD-EPI equation should not be used for patients with unstable renal function and has not been validated in children and those over 70. Current interpretive data was last reviewed 2021. Blood 07/19/2024 9:57 PM CDT 07/19/2024 10:29 PM CDT us Elvira Cooper MD LAB BLOOD ORDERABLES Ayanna vazquez Result [facility] Department [place] [address] * (ABNORMAL) CBC without differential (07/19/2024 9:57 PM CDT) WBC 4.7 3.8 - 9.9 K/cumm Hgb 10.6(L) 11.9 - 15.5 g/dL [facility] Hct 33.5(L) 35.6 - 45.5 % [facility] Plt 259 150 - 400 K/cumm [facility] MPV 9.7 9.1 - 12.3 fL [facility] RBC 3.31(L) 3.90 - 5.20 M/cumm [facility] MCV 101.2(H) 81.3 - 96.4 fL [facility] MCH 32.0 27.1 - 33.3 pg [facility] MCHC 31.6(L) 32.3 - 35.7 g/dL [facility] RDW CV 13.8 11.1 - 14.9 % [facility] RDW SD 51.0(H) 35.7 - 48.1 fL [facility] NRBC abs 0.00 0.00 - 0.01 K/cumm [facility] Blood 07/19/2024 9:57 PM CDT 07/19/2024 10:30 PM CDT Elvira Cooper MD LAB BLOOD ORDERABLES Ayanna l Result [facility] Department [place] [address] * Magnesium (07/19/2024 9:57 PM CDT) Pathologist [facility] [place] Magnesium 2.2 1.4 - 2.5 mg/dL Blood 07/19/2024 9:57 PM CDT 07/19/2024 10:29 PM CDT Ynes Roman MD LAB BLOOD ORDERABLES Ayanna l Result Performing Organization Address [facility] de Phone Number [facility] Department [place] [address] * (ABNORMAL) Comprehensive metabolic panel (07/19/2024 9:57 PM CDT) Pathologist [facility] [place] Sodium 138 135 - 145 mmol/L Potassium, pl 5.0(H) 3.3 - 4.9 mmol/L [facility] Comment:Hemolyzed; Potassium value may be falsely elevated by as much as 0.3-0.5 mmol/L. Suggest redraw and reanalysis. Chloride 98 97 - 110 mmol/L [facility] CO2 29 22 - 32 mmol/L [facility] Anion gap 11 2 - 15 mmol/L [facility] BUN 25 6 - 25 mg/dL [facility] Creatinine 1.09 0.60 - 1.10 mg/dL [facility] Glucose 192 70 - 199 mg/dL [facility] Comment: Interpretive Data Fasting glucose >/= 126 mg/dl is diagnostic for diabetes. ?? Fasting is defined as no caloric intake for at least 8 hours. Fasting glucose between 100 mg/dl to 125 mg/dl is diagnostic of prediabetes. In a patient with classic symptoms of hyperglycemia or hyperglycemic crisis, a random glucose >/= 200 mg/dl is diagnostic for diabetes. In the absence of unequivocal hyperglycemia, results should be confirmed by repeat testing. The classification and Diagnosis of Diabetes Diabetes Care 202; 46: S19-S40. Current interpretive data was last revised 2022. Calcium 9.3 8.5 - 10.3 mg/dL [facility] Bilirubin, total 0.2 0.1 - 1.2 mg/dL [facility] Protein, pl 7.2 6.5 - 8.5 g/dL [facility] Albumin 3.1(L) 3.5 - 5.0 g/dL [facility] Alk phos 154(H) 40 - 130 Units/L [facility] ALT 7 7 - 45 Units/L [facility] AST 33 10 - 45 Units/L [facility] Comment:Hemolyzed; result ma y be falsely elevated Blood 07/19/2024 9:57 PM CDT 07/19/2024 10:29 PM CDT us Elvira Cooper MD LAB BLOOD ORDERABLES Ayanna l Result [facility] Department [facility] [employer] [place], [place] [id number] * (ABNORMAL) POCT glucose (07/19/2024 9:49 PM CDT) Glucose, POC 207(H) 70 - 199 mg/dL Blood 07/19/2024 9:49 PM CDT 07/19/2024 9:49 PM CDT us Ynes Roman MD LAB POCT ORDERABLES - DEV ICE Final Result [facility] [place] [address] * POCT glucose (07/19/2024 5:03 PM CDT) Glucose, POC 133 70 - 199 mg/dL Blood 07/19/2024 5:03 PM CDT 07/19/2024 5:03 PM CDT Ynes Roman MD LAB POCT ORDERABLES - DEV ICE Final Result Performing Organization Address [facility] de Phone Number [facility] [place] [address] * Urea nitrogen, urine, random (07/19/2024 12:59 PM CDT) Urea nitrogen, ur 374 mg/dL Comment: Interpretive Data No reference range established. Current interpretive data was last revised 2019. Urine 07/19/2024 12:5 9 PM CDT 07/19/2024 1:46 PM CDT us Ynes Roman MD LAB URINE ORDERABLES Ayanna l Result Performing Organization Address [facility] de Phone Number [facility] [place] [address] * Sodium, urine, random (07/19/2024 12:59 PM CDT) Sodium, ur 85 mmol/L Comment: Interpretive Data No reference range established. Current interpretive data was last revised 2019. Urine 07/19/2024 12:5 9 PM CDT 07/19/2024 1:46 PM CDT us Ynes Roman MD LAB URINE ORDERABLES Ayanna l Result Performing Organization Address [facility] de Phone Number [facility] [place] [address] * Creatinine, urine, random (07/19/2024 12:59 PM CDT) Creatinine Ur 70.4 mg/dL Comment: Interpretive Data No reference range established. Current interpretive data was last revised 2019. Urine 07/19/2024 12:5 9 PM CDT 07/19/2024 1:46 PM CDT Ynes Roman MD LAB URINE ORDERABLES Ayanna l Result Performing Organization Address [facility] de Phone Number [facility] [place] [address] * (ABNORMAL) POCT glucose (07/19/2024 12:48 PM CDT) Glucose, POC 222(H) 70 - 199 mg/dL Blood 07/19/2024 12:4 8 PM CDT 07/19/2024 12:48 PM CDT Ynes Roman MD LAB POCT ORDERABLES - DEV ICE Final Result Performing Organization Address [facility] de Phone Number [facility] [place] [address] * POCT glucose (07/19/2024 12:11 PM CDT) Glucose, POC 179 70 - 199 mg/dL Blood 07/19/2024 12:1 1 PM CDT 07/19/2024 12:11 PM CDT Ynes Roman MD LAB POCT ORDERABLES - DEV ICE Final Result Performing Organization Address [facility] de Phone Number [facility] [place] [address] * (ABNORMAL) eGFR (07/18/2024 9:07 PM CDT) eGFR 35(L) >=60 mL/min/1. 73 m2 Comment: Interpretive Data Reference Interval Normal ?>/= 90 mL/min/1.73m2 Mildly decreased* ? 60 - 89 mL/min/1.73m2 Mildly to moderately decreased ?45 - 59 mL/min/1.73m2 Moderately to severely decreased ??30 - 44 mL/min/1.73m2 Severely decreased ?15 - 29 mL/min/1.73m2 Kidney Failure ?< 15 ??mL/min/1.73m2 *Relative to young adult level Estimated glomerular filtration rate is determined by the 2020 CKD-EPI equation recommended by the National Kidney Foundation (A Unifying Approach to GFR Estimation: Recommendations of the NKF-ASK Task Force on Reassessing the Inclusion of Race in Diagnosing Kidney Disease, JASN 2020). The CKD-EPI equation should not be used for patients with unstable renal function and has not been validated in children and those over 70. Current interpretive data was last reviewed 2021. Blood 07/18/2024 9:07 PM CDT 07/18/2024 9:49 PM CDT us Elvira Cooper MD LAB BLOOD ORDERABLES Ayanna vazquez Result [facility] Department [place] [address] * Differential, auto (07/18/2024 9:07 PM CDT) Pathologist [facility] [place] Neutrophil abs 3.5 1.5 - 6.5 K/cumm Imm gran abs 0.1 0.0 - 0.1 K/cumm [facility] Lymphocyte abs 1.0 0.8 - 3.3 K/cumm [facility] Monocyte abs 0.7 0.2 - 0.8 K/cumm [facility] Eosinophil abs 0.2 0.0 - 0.5 K/cumm [facility] Basophil abs 0.1 0.0 - 0.1 K/cumm [facility] Neutrophil pct 63.5 % [facility] Comment: Interpretive Data Percent cell count reference ranges are not reported, since discordance with absolute values may lead to misinterpretation of CBC data. Current Interpretive Data was last revised on 2018. Imm gran pct 1.5 % [facility] Comment: Interpretive Data Percent cell count reference ranges are not reported, since discordance with absolute values may lead to misinterpretation of CBC data. Current Interpretive Data was last revised on 2018. Lymphocyte pct 18.2 % [facility] Comment: Interpretive Data Percent cell count reference ranges are not reported, since discordance with absolute values may lead to misinterpretation of CBC data. Current Interpretive Data was last revised on 2018. Monocyte pct 12.2 % [facility] Comment: Interpretive Data Percent cell count reference ranges are not reported, since discordance with absolute values may lead to misinterpretation of CBC data. Current Interpretive Data was last revised on 2018. Eosinophil pct 3.5 % [facility] Comment: Interpretive Data Percent cell count reference ranges are not reported, since discordance with absolute values may lead to misinterpretation of CBC data. Current Interpretive Data was last revised on 2018. Basophil pct 1.1 % [facility] Comment: Interpretive Data Percent cell count reference ranges are not reported, since discordance with absolute values may lead to misinterpretation of CBC data. Current Interpretive Data was last revised on 2018. Blood 07/18/2024 9:07 PM CDT 07/18/2024 9:54 PM CDT us Ynes Roman MD LAB BLOOD ORDERABLES Ayanna l Result [facility] Department [place] [address] * (ABNORMAL) CBC with auto differential (07/18/2024 9:07 PM CDT) WBC 5.3 3.8 - 9.9 K/cumm Hgb 11.4(L) 11.9 - 15.5 g/dL [facility] Hct 35.5(L) 35.6 - 45.5 % [facility] Plt 257 150 - 400 K/cumm [facility] MPV 9.8 9.1 - 12.3 fL [facility] RBC 3.50(L) 3.90 - 5.20 M/cumm [facility] MCV 101.4(H) 81.3 - 96.4 fL [facility] MCH 32.6 27.1 - 33.3 pg [facility] MCHC 32.1(L) 32.3 - 35.7 g/dL [facility] RDW CV 13.8 11.1 - 14.9 % [facility] RDW SD 51.6(H) 35.7 - 48.1 fL [facility] NRBC abs 0.00 0.00 - 0.01 K/cumm [facility] Blood 07/18/2024 9:07 PM CDT 07/18/2024 9:54 PM CDT us Ynes Roman MD LAB BLOOD ORDERABLES Ayanna vazquez Result [facility] Department [place] [address] * (ABNORMAL) CBC without differential (07/18/2024 9:07 PM CDT) WBC 5.3 3.8 - 9.9 K/cumm Hgb 11.4(L) 11.9 - 15.5 g/dL [facility] Hct 35.5(L) 35.6 - 45.5 % [facility] Plt 257 150 - 400 K/cumm [facility] MPV 9.8 9.1 - 12.3 fL [facility] RBC 3.50(L) 3.90 - 5.20 M/cumm [facility] MCV 101.4(H) 81.3 - 96.4 fL [facility] MCH 32.6 27.1 - 33.3 pg [facility] MCHC 32.1(L) 32.3 - 35.7 g/dL [facility] RDW CV 13.8 11.1 - 14.9 % [facility] RDW SD 51.6(H) 35.7 - 48.1 fL [facility] NRBC abs 0.00 0.00 - 0.01 K/cumm [facility] Blood 07/18/2024 9:07 PM CDT 07/18/2024 9:50 PM CDT Elvira Cooper MD LAB BLOOD ORDERABLES Ayanna l Result [facility] Department [place] [address] * Magnesium (07/18/2024 9:07 PM CDT) [facility] Magnesium 2.0 1.4 - 2.5 mg/dL Blood 07/18/2024 9:07 PM CDT 07/18/2024 9:49 PM CDT Ynes Roman MD LAB BLOOD ORDERABLES Ayanna l Result Performing Organization Address [facility] de Phone Number [facility] Department [place] [address] * (ABNORMAL) Comprehensive metabolic panel (07/18/2024 9:07 PM CDT) [facility] Sodium 131(L) 135 - 145 mmol/L Potassium, pl 4.5 3.3 - 4.9 mmol/L [facility] Chloride 95(L) 97 - 110 mmol/L [facility] CO2 28 22 - 32 mmol/L [facility] Anion gap 8 2 - 15 mmol/L [facility] BUN 26(H) 6 - 25 mg/dL [facility] Creatinine 1.66(H) 0.60 - 1.10 mg/dL [facility] Glucose 251(H) 70 - 199 mg/dL [facility] Comment: Interpretive Data Fasting glucose >/= 126 mg/dl is diagnostic for diabetes. ?? Fasting is defined as no caloric intake for at least 8 hours. Fasting glucose between 100 mg/dl to 125 mg/dl is diagnostic of prediabetes. In a patient with classic symptoms of hyperglycemia or hyperglycemic crisis, a random glucose >/= 200 mg/dl is diagnostic for diabetes. In the absence of unequivocal hyperglycemia, results should be confirmed by repeat testing. The classification and Diagnosis of Diabetes Diabetes Care 2021; 46: S19-S40. Current interpretive data was last revised 2022. Calcium 9.6 8.5 - 10.3 mg/dL [facility] Bilirubin, total 0.3 0.1 - 1.2 mg/dL [facility] Protein, pl 7.8 6.5 - 8.5 g/dL [facility] Albumin 3.5 3.5 - 5.0 g/dL [facility] Alk phos 165(H) 40 - 130 Units/L [facility] ALT 9 7 - 45 Units/L [facility] AST 30 10 - 45 Units/L [facility] Blood 07/18/2024 9:07 PM CDT 07/18/2024 9:49 PM CDT us Elvira Cooper MD LAB BLOOD ORDERABLES Ayanna l Result [facility] Department [place] [address] * (ABNORMAL) POCT glucose (07/18/2024 8:17 PM CDT) Glucose, POC 304(H) 70 - 199 mg/dL Blood 07/18/2024 8:17 PM CDT 07/18/2024 8:17 PM CDT us Ynes Roman MD LAB POCT ORDERABLES - DEV ICE Final Result [facility] Department [place] [address] * (ABNORMAL) POCT glucose (07/18/2024 5:16 PM CDT) Glucose, POC 378(H) 70 - 199 mg/dL Blood 07/18/2024 5:16 PM CDT 07/18/2024 5:16 PM CDT us Ynes Roman MD LAB POCT ORDERABLES - DEV ICE Final Result Performing Organization Address [facility] Co de Phone Number [facility] [place] [address] * (ABNORMAL) POCT glucose (07/18/2024 11:41 AM CDT) Glucose, POC 205(H) 70 - 199 mg/dL Blood 07/18/2024 11:4 1 AM CDT 07/18/2024 11:41 AM CDT Ynes Roman MD LAB POCT ORDERABLES - DEV ICE Final Result Performing Organization Address [facility] de Phone [facility] [place] [address] * (ABNORMAL) POCT glucose (07/18/2024 8:17 AM CDT) Glucose, POC 215(H) 70 - 199 mg/dL Blood 07/18/2024 8:17 AM CDT 07/18/2024 8:17 AM CDT Ynes Roman MD LAB POCT ORDERABLES - DEV ICE Final Result Performing Organization Address [facility] Co de Phone Number [facility] [place] [address] * eGFR (07/17/2024 9:17 PM CDT) eGFR 73 >=60 mL/min/1. 73 m2 Comment: Interpretive Data Reference Interval Normal ?>/= 90 mL/min/1.73m2 Mildly decreased* ? 60 - 89 mL/min/1.73m2 Mildly to moderately decreased ?45 - 59 mL/min/1.73m2 Moderately to severely decreased ??30 - 44 mL/min/1.73m2 Severely decreased ?15 - 29 mL/min/1.73m2 Kidney Failure ?< 15 ??mL/min/1.73m2 *Relative to young adult level Estimated glomerular filtration rate is determined by the 2020 CKD-EPI equation recommended by the National Kidney Foundation (A Unifying Approach to GFR Estimation: Recommendations of the NKF-ASK Task Force on Reassessing the Inclusion of Race in Diagnosing Kidney Disease, JASN 2020). The CKD-EPI equation should not be used for patients with unstable renal function and has not been validated in children and those over 70. Current interpretive data was last reviewed 2021. Blood 07/17/2024 9:17 PM CDT 07/17/2024 10:06 PM CDT us Elvira Cooper MD LAB BLOOD ORDERABLES Ayanna vazquez Result [facility] Department of Laboratories [place], [place] [id number] * (ABNORMAL) CBC without differential (07/17/2024 9:17 PM CDT) Pathologist [facility] [place] WBC 4.5 3.8 - 9.9 K/cumm Hgb 11.1(L) 11.9 - 15.5 g/dL [facility] Hct 34.5(L) 35.6 - 45.5 % [facility] Plt 228 150 - 400 K/cumm [facility] MPV 10.0 9.1 - 12.3 fL [facility] RBC 3.48(L) 3.90 - 5.20 M/cumm [facility] MCV 99.1(H) 81.3 - 96.4 fL [facility] MCH 31.9 27.1 - 33.3 pg [facility] MCHC 32.2(L) 32.3 - 35.7 g/dL [facility] RDW CV 13.9 11.1 - 14.9 % [facility] RDW SD 50.4(H) 35.7 - 48.1 fL [facility] NRBC abs 0.00 0.00 - 0.01 K/cumm [facility] Blood 07/17/2024 9:17 PM CDT 07/17/2024 10:09 PM CDT Elvira Cooper MD LAB BLOOD ORDERABLES Ayanna l Result Performing Organization Address [facility] Co de Phone Number [facility] Department [place] [address] * Magnesium (07/17/2024 9:17 PM CDT) [facility] Magnesium 1.8 1.4 - 2.5 mg/dL Blood 07/17/2024 9:17 PM CDT 07/17/2024 10:06 PM CDT Ynes Roman MD LAB BLOOD ORDERABLES Ayanna l Result Performing Organization Address [facility] Co de Phone Number [facility] Department [place] [address] * (ABNORMAL) Comprehensive metabolic panel (07/17/2024 9:17 PM CDT) Pathologist [facility] [place] Sodium 133(L) 135 - 145 mmol/L Potassium, pl 3.9 3.3 - 4.9 mmol/L [facility] Chloride 95(L) 97 - 110 mmol/L [facility] CO2 31 22 - 32 mmol/L [facility] Anion gap 7 2 - 15 mmol/L [facility] BUN 19 6 - 25 mg/dL [facility] Creatinine 0.89 0.60 - 1.10 mg/dL [facility] Glucose 298(H) 70 - 199 mg/dL [facility] Comment: Interpretive Data Fasting glucose >/= 126 mg/dl is diagnostic for diabetes. ?? Fasting is defined as no caloric intake for at least 8 hours. Fasting glucose between 100 mg/dl to 125 mg/dl is diagnostic of prediabetes. In a patient with classic symptoms of hyperglycemia or hyperglycemic crisis, a random glucose >/= 200 mg/dl is diagnostic for diabetes. In the absence of unequivocal hyperglycemia, results should be confirmed by repeat testing. The classification and Diagnosis of Diabetes Diabetes Care 2021; 46: S19-S40. Current interpretive data was last revised 2022. Calcium 9.1 8.5 - 10.3 mg/dL [facility] Bilirubin, total 0.3 0.1 - 1.2 mg/dL [facility] Protein, pl 7.2 6.5 - 8.5 g/dL [facility] Albumin 3.2(L) 3.5 - 5.0 g/dL [facility] Alk phos 138(H) 40 - 130 Units/L [facility] ALT 6(L) 7 - 45 Units/L [facility] AST 19 10 - 45 Units/L [facility] Blood 07/17/2024 9:17 PM CDT 07/17/2024 10:06 PM CDT us Elvira Cooper MD LAB BLOOD ORDERABLES Ayanna l Result [facility] Department [place] [address] * (ABNORMAL) POCT glucose (07/17/2024 9:04 PM CDT) [facility] Glucose, POC 311(H) 70 - 199 mg/dL Blood 07/17/2024 9:04 PM CDT 07/17/2024 9:04 PM CDT us Ynes Roman MD LAB POCT ORDERABLES - DEV ICE Final Result Performing Organization Address [facility] Co de Phone Number OLAM[facility] ALEXANDER [facility] Department [place] [address] * POCT glucose (07/17/2024 4:48 PM CDT) Glucose, POC 155 70 - 199 mg/dL Blood 07/17/2024 4:48 PM CDT 07/17/2024 4:48 PM CDT us Ynes Roman MD LAB POCT ORDERABLES - DEV ICE Final Result Performing Organization Address [facility] de Phone Number OLAM[facility] ALEXANDER [facility] Department [place] [address] * NM MPI SPECT Single Study (Rest) for Sarcoidosis (07/17/2024 4:31 PM CDT) Anatomical Region Laterality Modality Body N/A Nuclear Medicine 07/17/2024 5:40 PM CDT Impressions 07/17/2024 5:40 PM CDT 1. ??Normal rest myocardial perfusion. 2. ??Mild left ventricular dilation and severe global hypokinesis. LVEF about 21%. Please see separate FDG PET report for evaluation of inflammation. (alexis Guerin ??also participated in the interpretation of this examination. Electronically signed by: Bernardino Walker M.D. Narrative 07/17/2024 5:40 PM CDT EXAMINATION: ??MYOCARDIAL IMAGING (REST/SPECT-CT) DATE OF STUDY: 07/17/2024 RADIOPHARMACEUTICAL: 23.17 mCi Tc-99m right arm i.v. HISTORY: NICM and evaluation for cardiac sarcoidosis. The patient's body mass index (BMI) was 40 kg/m2. FINDINGS: ??Standard myocardial perfusion images obtained after injection of tracer . Images were obtained in a ??supine position. Low-dose CT images spanning the heart were obtained for attenuation correction. COMPARISON: none The projection images were reviewed for image quality, and reveal no significant artifacts. The images demonstrate widely uniform distribution of activity in the left ventricular myocardium. Normal rest perfusion. Gated images demonstrate mild left ventricular dilation and severe global hypokinesis and reduced ejection fraction of 21% % (normal >45%). ?? Incidental findings on the low-dose CT images: limited image quality, about 6 mm nodule in the right middle lobe, calcified nodule perihilar right, no appreciable arterial calcification, multilevel spondylosis. Procedure Note Bernardino Walker MD - 07/17/2024 EXAMINATION: MYOCARDIAL IMAGING (REST/SPECT-CT) DATE OF STUDY: 07/17/2024 RADIOPHARMACEUTICAL: 23.17 mCi Tc-99m right arm i.v. HISTORY: NICM and evaluation for cardiac sarcoidosis. The patient's body mass index (BMI) was 40 kg/m2. FINDINGS: Standard myocardial perfusion images obtained after injection of tracer . Images were obtained in a supine position. Low-dose CT images spanning the heart were obtained for attenuation correction. COMPARISON: none The projection images were reviewed for image quality, and reveal no significant artifacts. The images demonstrate widely uniform distribution of activity in the left ventricular myocardium. Normal rest perfusion. Gated images demonstrate mild left ventricular dilation and severe global hypokinesis and reduced ejection fraction of 21% % (normal >45%). Incidental findings on the low-dose CT images: limited image quality, about 6 mm nodule in the right middle lobe, calcified nodule perihilar right, no appreciable arterial calcification, multilevel spondylosis. IMPRESSION: 1. Normal rest myocardial perfusion. 2. Mild left ventricular dilation and severe global hypokinesis. LVEF about 21%. Please see separate FDG PET report for evaluation of inflammation. (s)Yoanna Guerin also participated in the interpretation of this examination. Electronically signed by: Bernardino Walker M.D. us Ynes Roman MD IM NM PROCEDURES Final R esult * (ABNORMAL) POCT glucose (07/17/2024 11:27 AM CDT) Glucose, POC 233(H) 70 - 199 mg/dL Blood 07/17/2024 11:2 7 AM CDT 07/17/2024 11:27 AM CDT us Ynes Roman MD LAB POCT ORDERABLES - DEV ICE Final Result Performing Organization Address [facility] Co de Phone Number [facility] [place] [address] * POCT glucose (07/17/2024 7:45 AM CDT) Glucose, POC 184 70 - 199 mg/dL Blood 07/17/2024 7:45 AM CDT 07/17/2024 7:45 AM CDT Ynes Roman MD LAB POCT ORDERABLES - DEV ICE Final Result Performing Organization Address [facility] de Phone Number [facility] [place] [address] * eGFR (07/16/2024 9:13 PM CDT) eGFR 63 >=60 mL/min/1. 73 m2 Comment: Interpretive Data Reference Interval Normal ?>/= 90 mL/min/1.73m2 Mildly decreased* ? 60 - 89 mL/min/1.73m2 Mildly to moderately decreased ?45 - 59 mL/min/1.73m2 Moderately to severely decreased ??30 - 44 mL/min/1.73m2 Severely decreased ?15 - 29 mL/min/1.73m2 Kidney Failure ?< 15 ??mL/min/1.73m2 *Relative to young adult level Estimated glomerular filtration rate is determined by the 2020 CKD-EPI equation recommended by the National Kidney Foundation (A Unifying Approach to GFR Estimation: Recommendations of the NKF-ASK Task Force on Reassessing the Inclusion of Race in Diagnosing Kidney Disease, JASN 2020). The CKD-EPI equation should not be used for patients with unstable renal function and has not been validated in children and those over 70. Current interpretive data was last reviewed 2021. Blood 07/16/2024 9:13 PM CDT 07/16/2024 9:48 PM CDT us Elvira Cooper MD LAB BLOOD ORDERABLES Ayanna vazquez Result [facility] Department [place] [address] * Differential, auto (07/16/2024 9:13 PM CDT) Neutrophil abs 3.5 1.5 - 6.5 K/cumm Imm gran abs 0.0 0.0 - 0.1 K/cumm [facility] Lymphocyte abs 1.1 0.8 - 3.3 K/cumm [facility] Monocyte abs 0.7 0.2 - 0.8 K/cumm [facility] Eosinophil abs 0.1 0.0 - 0.5 K/cumm [facility] Basophil abs 0.1 0.0 - 0.1 K/cumm [facility] Neutrophil pct 64.0 % [facility] Comment: Interpretive Data Percent cell count reference ranges are not reported, since discordance with absolute values may lead to misinterpretation of CBC data. Current Interpretive Data was last revised on 2018. Imm gran pct 0.5 % [facility] Comment: Interpretive Data Percent cell count reference ranges are not reported, since discordance with absolute values may lead to misinterpretation of CBC data. Current Interpretive Data was last revised on 2018. Lymphocyte pct 19.2 % [facility] Comment: Interpretive Data Percent cell count reference ranges are not reported, since discordance with absolute values may lead to misinterpretation of CBC data. Current Interpretive Data was last revised on 2018. Monocyte pct 12.9 % [facility] Comment: Interpretive Data Percent cell count reference ranges are not reported, since discordance with absolute values may lead to misinterpretation of CBC data. Current Interpretive Data was last revised on 2018. Eosinophil pct 2.5 % [facility] Comment: Interpretive Data Percent cell count reference ranges are not reported, since discordance with absolute values may lead to misinterpretation of CBC data. Current Interpretive Data was last revised on 2018. Basophil pct 0.9 % [facility] Comment: Interpretive Data Percent cell count reference ranges are not reported, since discordance with absolute values may lead to misinterpretation of CBC data. Current Interpretive Data was last revised on 2018. Blood 07/16/2024 9:13 PM CDT 07/16/2024 9:50 PM CDT us Ynes Roman MD LAB BLOOD ORDERABLES Ayanna vazquez Result [facility] Department [place] [address] * (ABNORMAL) CBC with auto differential (07/16/2024 9:13 PM CDT) WBC 5.6 3.8 - 9.9 K/cumm Hgb 11.0(L) 11.9 - 15.5 g/dL [facility] Hct 33.4(L) 35.6 - 45.5 % [facility] Plt 219 150 - 400 K/cumm [facility] MPV 9.9 9.1 - 12.3 fL [facility] RBC 3.35(L) 3.90 - 5.20 M/cumm [facility] MCV 99.7(H) 81.3 - 96.4 fL [facility] MCH 32.8 27.1 - 33.3 pg [facility] MCHC 32.9 32.3 - 35.7 g/dL [facility] RDW CV 13.9 11.1 - 14.9 % [facility] RDW SD 50.5(H) 35.7 - 48.1 fL [facility] NRBC abs 0.00 0.00 - 0.01 K/cumm [facility] Blood 07/16/2024 9:13 PM CDT 07/16/2024 9:50 PM CDT us Ynes Rmoan MD LAB BLOOD ORDERABLES Ayanna george Result Performing Organization Address [facility] Co de Phone Number [facility] Department [place] [address] * (ABNORMAL) CBC without differential (07/16/2024 9:13 PM CDT) WBC 5.6 3.8 - 9.9 K/cumm Hgb 11.0(L) 11.9 - 15.5 g/dL [facility] Hct 33.4(L) 35.6 - 45.5 % [facility] Plt 219 150 - 400 K/cumm [facility] MPV 9.9 9.1 - 12.3 fL [facility] RBC 3.35(L) 3.90 - 5.20 M/cumm [facility] MCV 99.7(H) 81.3 - 96.4 fL [facility] MCH 32.8 27.1 - 33.3 pg [facility] MCHC 32.9 32.3 - 35.7 g/dL [facility] RDW CV 13.9 11.1 - 14.9 % [facility] RDW SD 50.5(H) 35.7 - 48.1 fL [facility] NRBC abs 0.00 0.00 - 0.01 K/cumm [facility] Blood 07/16/2024 9:13 PM CDT 07/16/2024 9:47 PM CDT Elvira Cooper MD LAB BLOOD ORDERABLES Ayanna vazquez Result Performing Organization Address [facility]/ZIP Co de Phone Number [facility] Department [place] [address] * Magnesium (07/16/2024 9:13 PM CDT) Magnesium 2.0 1.4 - 2.5 mg/dL Blood 07/16/2024 9:13 PM CDT 07/16/2024 9:48 PM CDT us Ynes Roman MD LAB BLOOD ORDERABLES Ayanna vazquez Result [facility] Department [place] [address] * (ABNORMAL) Comprehensive metabolic panel (07/16/2024 9:13 PM CDT) Pathologist [facility] [place] Sodium 134(L) 135 - 145 mmol/L Potassium, pl 4.0 3.3 - 4.9 mmol/L [facility] Chloride 93(L) 97 - 110 mmol/L [facility] CO2 33(H) 22 - 32 mmol/L [facility] Anion gap 8 2 - 15 mmol/L [facility] BUN 17 6 - 25 mg/dL [facility] Creatinine 1.01 0.60 - 1.10 mg/dL [facility] Glucose 106 70 - 199 mg/dL [facility] Comment: Interpretive Data Fasting glucose >/= 126 mg/dl is diagnostic for diabetes. ?? Fasting is defined as no caloric intake for at least 8 hours. Fasting glucose between 100 mg/dl to 125 mg/dl is diagnostic of prediabetes. In a patient with classic symptoms of hyperglycemia or hyperglycemic crisis, a random glucose >/= 200 mg/dl is diagnostic for diabetes. In the absence of unequivocal hyperglycemia, results should be confirmed by repeat testing. The classification and Diagnosis of Diabetes Diabetes Care 2021; 46: S19-S40. Current interpretive data was last revised 2022. Calcium 9.5 8.5 - 10.3 mg/dL [facility] Bilirubin, total 0.3 0.1 - 1.2 mg/dL [facility] Protein, pl 7.3 6.5 - 8.5 g/dL [facility] Albumin 3.2(L) 3.5 - 5.0 g/dL [facility] Alk phos 148(H) 40 - 130 Units/L [facility] ALT 5(L) 7 - 45 Units/L [facility] AST 24 10 - 45 Units/L [facility] Blood 07/16/2024 9:13 PM CDT 07/16/2024 9:48 PM CDT Elvira Cooper MD LAB BLOOD ORDERABLES Ayanna l Result Performing Organization Address [facility] de Phone Number [facility] [place] [address] * POCT glucose (07/16/2024 8:06 PM CDT) Glucose, POC 86 70 - 199 mg/dL Blood 07/16/2024 8:06 PM CDT 07/16/2024 8:06 PM CDT us Ynes Roman MD LAB POCT ORDERABLES - DEV ICE Final Result Performing Organization Address [facility] de Phone Number [facility] [place] [place] [address] * POCT glucose (07/16/2024 4:23 PM CDT) Glucose, POC 100 70 - 199 mg/dL Blood 07/16/2024 4:23 PM CDT 07/16/2024 4:23 PM CDT Ynes Roman MD LAB POCT ORDERABLES - DEV ICE Final Result Performing Organization Address [facility] de Phone Number [facility] [place] [address] * CTA Heart and Coronary Arteries W Morphology when Performed (07/16/2024 12:07 PM CDT) Anatomical Region Laterality Modality Chest N/A Computed Tomogra phy 07/16/2024 12:5 7 PM CDT Impressions 07/16/2024 12:57 PM CDT 1. No evidence of coronary artery disease. 2. ??Cardiomegaly with left atrial appendage clot. 3. Mild pulmonary edema. 4. Likely retrained wire or catheter in the right lower lobe, unchanged The Non Critical results regarding the atrial appendage clot ??were discussed with Dr. Brown by Dr. Eisenberg on 07/16/2024 at 12:50 PM Electronically signed by: Isabel Eisenberg M.D. Narrative 07/16/2024 12:57 PM CDT EXAMINATION: CORONARY CT ANGIOGRAM HISTORY: Heart failure TECHNIQUE: CT angiography of the coronary arteries was performed after the administration of 94 mL of Optiray 350. Images were also obtained precontrast for the purposes of calcium scoring. The patient's heart rate and blood pressure at the time of the examination were 90 beats per minute and 110/70 mmHg. Images were transferred to a 3D workstation for additional post-processing. FINDINGS: The coronary arteries are right system dominant. There is no anomalous coronary origin or course. Right coronary system: No evidence of coronary artery disease Left coronary system: No evidence of coronary artery disease The calculated calcium score is 0. Other findings: The heart is markedly enlarged with left atrial appendage clot. Pulmonary artery is also enlarged which can be seen in the setting of pulmonary hypertension. ??Calcification of the right lower lobe pulmonary artery may represent retained catheter, unchanged. ?? There is mild bibasilar atelectasis. ??There is a pulmonary nodule in the right upper lobe measuring 7 mm which may be infectious/inflammatory or represent focal asymmetric edema given it is new from 05/30/24. ??There is mild pulmonary edema. ?? Small hiatal hernia. ??Multilevel degenerative disc disease. Procedure Note Isabel Conteh MD - 07/16/2024 EXAMINATION: CORONARY CT ANGIOGRAM HISTORY: Heart failure TECHNIQUE: CT angiography of the coronary arteries was performed after the administration of 94 mL of Optiray 350. Images were also obtained precontrast for the purposes of calcium scoring. The patient's heart rate and blood pressure at the time of the examination were 90 beats per minute and 110/70 mmHg. Images were transferred to a 3D workstation for additional post-processing. FINDINGS: The coronary arteries are right system dominant. There is no anomalous coronary origin or course. Right coronary system: No evidence of coronary artery disease Left coronary system: No evidence of coronary artery disease The calculated calcium score is 0. Other findings: The heart is markedly enlarged with left atrial appendage clot. Pulmonary artery is also enlarged which can be seen in the setting of pulmonary hypertension. Calcification of the right lower lobe pulmonary artery may represent retained catheter, unchanged. There is mild bibasilar atelectasis. There is a pulmonary nodule in the right upper lobe measuring 7 mm which may be infectious/inflammatory or represent focal asymmetric edema given it is new from 05/30/24. There is mild pulmonary edema. Small hiatal hernia. Multilevel degenerative disc disease. IMPRESSION: 1. No evidence of coronary artery disease. 2. Cardiomegaly with left atrial appendage clot. 3. Mild pulmonary edema. 4. Likely retrained wire or catheter in the right lower lobe, unchanged The Non Critical results regarding the atrial appendage clot were discussed with Dr. Brown by Dr. Eisenberg on 07/16/2024 at 12:50 PM Electronically signed by: Isabel Eisenberg M.D. us Ynes Roman MD IMG CT PROCEDURES Final R esult * (ABNORMAL) POCT glucose (07/16/2024 11:00 AM CDT) Glucose, POC 200(H) 70 - 199 mg/dL Blood 07/16/2024 11:0 0 AM CDT 07/16/2024 11:00 AM CDT Ynes Roman MD LAB POCT ORDERABLES - DEV ICE Final Result [facility] Department [place] [address] * POCT glucose (07/16/2024 7:42 AM CDT) Glucose, POC 137 70 - 199 mg/dL Blood 07/16/2024 7:42 AM CDT 07/16/2024 7:42 AM CDT us Ynes Roman MD LAB POCT ORDERABLES - DEV ICE Final Result Performing Organization Address [facility] Co de Phone Number [facility] [place] [address] * Potassium, whole blood (07/16/2024 2:15 AM CDT) Potassium, bld 4.1 3.3 - 4.9 mmol/L Blood 07/16/2024 2:15 AM CDT 07/16/2024 3:57 AM CDT us Ynes Roman MD LAB BLOOD ORDERABLES Ayanna l Result Performing Organization Address [facility] de Phone Number [facility] Department [place] [address] * eGFR (07/15/2024 10:22 PM CDT) eGFR 87 >=60 mL/min/1. 73 m2 Comment: Interpretive Data Reference Interval Normal ?>/= 90 mL/min/1.73m2 Mildly decreased* ? 60 - 89 mL/min/1.73m2 Mildly to moderately decreased ?45 - 59 mL/min/1.73m2 Moderately to severely decreased ??30 - 44 mL/min/1.73m2 Severely decreased ?15 - 29 mL/min/1.73m2 Kidney Failure ?< 15 ??mL/min/1.73m2 *Relative to young adult level Estimated glomerular filtration rate is determined by the 2020 CKD-EPI equation recommended by the National Kidney Foundation (A Unifying Approach to GFR Estimation: Recommendations of the NKF-ASK Task Force on Reassessing the Inclusion of Race in Diagnosing Kidney Disease, JASN 2020). The CKD-EPI equation should not be used for patients with unstable renal function and has not been validated in children and those over 70. Current interpretive data was last reviewed 2021. Blood 07/15/2024 10:2 2 PM CDT 07/15/2024 11:27 PM CDT Elvira Cooper MD LAB BLOOD ORDERABLES Ayanna l Result Performing Organization Address [facility] Co de Phone Number [facility] Department [place] [address] * (ABNORMAL) CBC without differential (07/15/2024 10:22 PM CDT) WBC 6.5 3.8 - 9.9 K/cumm Hgb 11.0(L) 11.9 - 15.5 g/dL [facility] Hct 33.6(L) 35.6 - 45.5 % [facility] Plt 233 150 - 400 K/cumm [facility] MPV 10.5 9.1 - 12.3 fL [facility] RBC 3.37(L) 3.90 - 5.20 M/cumm [facility] MCV 99.7(H) 81.3 - 96.4 fL [facility] MCH 32.6 27.1 - 33.3 pg [facility] MCHC 32.7 32.3 - 35.7 g/dL [facility] RDW CV 14.3 11.1 - 14.9 % [facility] RDW SD 52.1(H) 35.7 - 48.1 fL [facility] NRBC abs 0.00 0.00 - 0.01 K/cumm [facility] Blood 07/15/2024 10:2 2 PM CDT 07/15/2024 11:27 PM CDT Elvira Cooper MD LAB BLOOD ORDERABLES Ayanna l Result Performing Organization Address [facility] Co de Phone Number [facility] Department [place] [address] * Magnesium (07/15/2024 10:22 PM CDT) Magnesium 1.8 1.4 - 2.5 mg/dL Blood 07/15/2024 10:2 2 PM CDT 07/15/2024 11:27 PM CDT us Ynes Roman MD LAB BLOOD ORDERABLES Ayanna george Result [facility] Department [place] [address] * (ABNORMAL) Comprehensive metabolic panel (07/15/2024 10:22 PM CDT) Pathologist [facility] [place] Sodium 137 135 - 145 mmol/L Potassium, pl See Comment 3.3 - 4.9 mmol/L [facility] Comment:Credited; Hemolyzed Specimen Chloride 97 97 - 110 mmol/L [facility] CO2 31 22 - 32 mmol/L [facility] Anion gap 9 2 - 15 mmol/L [facility] BUN 20 6 - 25 mg/dL [facility] Creatinine 0.77 0.60 - 1.10 mg/dL [facility] Glucose 119 70 - 199 mg/dL [facility] Comment: Interpretive Data Fasting glucose >/= 126 mg/dl is diagnostic for diabetes. ?? Fasting is defined as no caloric intake for at least 8 hours. Fasting glucose between 100 mg/dl to 125 mg/dl is diagnostic of prediabetes. In a patient with classic symptoms of hyperglycemia or hyperglycemic crisis, a random glucose >/= 200 mg/dl is diagnostic for diabetes. In the absence of unequivocal hyperglycemia, results should be confirmed by repeat testing. The classification and Diagnosis of Diabetes Diabetes Care 202; 46: S19-S40. Current interpretive data was last revised 2022. Calcium 9.5 8.5 - 10.3 mg/dL [facility] Bilirubin, total 0.3 0.1 - 1.2 mg/dL [facility] Protein, pl 7.5 6.5 - 8.5 g/dL [facility] Albumin 3.3(L) 3.5 - 5.0 g/dL [facility] Alk phos 143(H) 40 - 130 Units/L [facility] Comment:Hemolyzed; result ma y be falsely decreased ALT See Comment 7 - 45 Units/L [facility] Comment:Credited; Hemolyzed Specimen AST See Comment 10 - 45 Units/L [facility] Comment:Credited; Hemolyzed Specimen Blood 07/15/2024 10:2 2 PM CDT 07/15/2024 11:27 PM CDT Elvira Cooper MD LAB BLOOD ORDERABLES Ayanna l Result Performing Organization Address [facility]/ZIP Co de Phone Number [facility] [place] [place] [address] * POCT glucose (07/15/2024 7:47 PM CDT) Glucose, POC 147 70 - 199 mg/dL Blood 07/15/2024 7:47 PM CDT 07/15/2024 7:47 PM CDT us Ynes Roman MD LAB POCT ORDERABLES - DEV ICE Final Result Performing Organization Address [facility] Co de Phone Number [facility] [place] [place] [address] * POCT glucose (07/15/2024 4:08 PM CDT) Glucose, POC 103 70 - 199 mg/dL Blood 07/15/2024 4:08 PM CDT 07/15/2024 4:08 PM CDT Ynes Roman MD LAB POCT ORDERABLES - DEV ICE Final Result Performing Organization Address [facility]/ZIP Co de Phone Number [facility] [place] [address] * (ABNORMAL) POCT glucose (07/15/2024 11:10 AM CDT) Glucose, POC 221(H) 70 - 199 mg/dL Blood 07/15/2024 11:1 0 AM CDT 07/15/2024 11:10 AM CDT us Ynes Roman MD LAB POCT ORDERABLES - DEV ICE Final Result Performing Organization Address [facility] Co de Phone Number [facility] [place] [address] * POCT glucose (07/15/2024 8:48 AM CDT) Glucose, POC 160 70 - 199 mg/dL Blood 07/15/2024 8:48 AM CDT 07/15/2024 8:48 AM CDT us Ynes Roman MD LAB POCT ORDERABLES - DEV ICE Final Result Performing Organization Address [facility] Co de Phone Number [facility] [place] [address] * POCT glucose (07/15/2024 8:07 AM CDT) Glucose, POC 173 70 - 199 mg/dL Blood 07/15/2024 8:07 AM CDT 07/15/2024 8:07 AM CDT Ynes Roman MD LAB POCT ORDERABLES - DEV ICE Final Result Performing Organization Address [facility] [place] [address] * eGFR (07/14/2024 9:36 PM CDT) eGFR 83 >=60 mL/min/1. 73 m2 Comment: Interpretive Data Reference Interval Normal ?>/= 90 mL/min/1.73m2 Mildly decreased* ? 60 - 89 mL/min/1.73m2 Mildly to moderately decreased ?45 - 59 mL/min/1.73m2 Moderately to severely decreased ??30 - 44 mL/min/1.73m2 Severely decreased ?15 - 29 mL/min/1.73m2 Kidney Failure ?< 15 ??mL/min/1.73m2 *Relative to young adult level Estimated glomerular filtration rate is determined by the 2020 CKD-EPI equation recommended by the National Kidney Foundation (A Unifying Approach to GFR Estimation: Recommendations of the NKF-ASK Task Force on Reassessing the Inclusion of Race in Diagnosing Kidney Disease, JASN 2020). The CKD-EPI equation should not be used for patients with unstable renal function and has not been validated in children and those over 70. Current interpretive data was last reviewed 2021. Blood 07/14/2024 9:36 PM CDT 07/14/2024 10:51 PM CDT us Ynes Roman MD LAB BLOOD ORDERABLES Ayanna vazquez Result [facility] Department [place] [address] * (ABNORMAL) CBC without differential (07/14/2024 9:36 PM CDT) Pathologist [facility] [place] WBC 6.7 3.8 - 9.9 K/cumm Hgb 11.2(L) 11.9 - 15.5 g/dL [facility] Hct 34.2(L) 35.6 - 45.5 % [facility] Plt 230 150 - 400 K/cumm [facility] MPV 9.7 9.1 - 12.3 fL [facility] RBC 3.43(L) 3.90 - 5.20 M/cumm [facility] MCV 99.7(H) 81.3 - 96.4 fL [facility] MCH 32.7 27.1 - 33.3 pg [facility] MCHC 32.7 32.3 - 35.7 g/dL [facility] RDW CV 14.1 11.1 - 14.9 % [facility] RDW SD 51.3(H) 35.7 - 48.1 fL [facility] NRBC abs 0.00 0.00 - 0.01 K/cumm [facility] Blood 07/14/2024 9:36 PM CDT 07/14/2024 10:51 PM CDT Elvira Cooper MD LAB BLOOD ORDERABLES Ayanna l Result Performing Organization Address City/[facility]/ZIP Co de Phone Number [facility] Department [place] [address] * Magnesium (07/14/2024 9:36 PM CDT) Magnesium 1.9 1.4 - 2.5 mg/dL Blood 07/14/2024 9:36 PM CDT 07/14/2024 10:48 PM CDT us Ynes Roman MD LAB BLOOD ORDERABLES Ayanna l Result [facility] Department [place] [address] * Creatinine (07/14/2024 9:36 PM CDT) Creatinine 0.80 0.60 - 1.10 mg/dL Blood 07/14/2024 9:36 PM CDT 07/14/2024 10:48 PM CDT Narrative [facility] - 07/14/2024 11:23 PM CDT Baseline prior to rivaroxaban initiation Ynes Roman MD LAB BLOOD ORDERABLES Ayanna l Result [facility] Department [place] [address] * Bilirubin, direct (07/14/2024 9:36 PM CDT) Bilirubin, direct <0.2 0.1 - 0.3 mg/dL Blood 07/14/2024 9:36 PM CDT 07/14/2024 10:48 PM CDT Elvira Cooper MD LAB BLOOD ORDERABLES Ayanna l Result Performing Organization Address [facility] Co de Phone Number [facility] Department [place] [address] * (ABNORMAL) Comprehensive metabolic panel (07/14/2024 9:36 PM CDT) Sodium 140 135 - 145 mmol/L Potassium, pl 3.9 3.3 - 4.9 mmol/L [facility] Chloride 100 97 - 110 mmol/L [facility] CO2 34(H) 22 - 32 mmol/L [facility] Anion gap 6 2 - 15 mmol/L [facility] BUN 18 6 - 25 mg/dL [facility] Creatinine 0.80 0.60 - 1.10 mg/dL [facility] Glucose 85 70 - 199 mg/dL [facility] Comment: Interpretive Data Fasting glucose >/= 126 mg/dl is diagnostic for diabetes. ?? Fasting is defined as no caloric intake for at least 8 hours. Fasting glucose between 100 mg/dl to 125 mg/dl is diagnostic of prediabetes. In a patient with classic symptoms of hyperglycemia or hyperglycemic crisis, a random glucose >/= 200 mg/dl is diagnostic for diabetes. In the absence of unequivocal hyperglycemia, results should be confirmed by repeat testing. The classification and Diagnosis of Diabetes Diabetes Care 202; 46: S19-S40. Current interpretive data was last revised 2022. Calcium 9.7 8.5 - 10.3 mg/dL [facility] Bilirubin, total 0.3 0.1 - 1.2 mg/dL [facility] Protein, pl 7.5 6.5 - 8.5 g/dL [facility] Albumin 3.4(L) 3.5 - 5.0 g/dL [facility] Alk phos 156(H) 40 - 130 Units/L [facility] ALT 6(L) 7 - 45 Units/L [facility] AST 23 10 - 45 Units/L [facility] Blood 07/14/2024 9:36 PM CDT 07/14/2024 10:48 PM CDT us Ynes Roman MD LAB BLOOD ORDERABLES Ayanna l Result Performing Organization Address [facility] Co de Phone Number [facility] Department [place] [address] * POCT glucose (07/14/2024 8:26 PM CDT) Glucose, POC 100 70 - 199 mg/dL Blood 07/14/2024 8:26 PM CDT 07/14/2024 8:26 PM CDT us Ynse Roman MD LAB POCT ORDERABLES - DEV ICE Final Result Performing Organization Address [facility] Co de Phone Number [facility] Department [place] [address] * POCT glucose (07/14/2024 4:14 PM CDT) Glucose, POC 184 70 - 199 mg/dL Blood 07/14/2024 4:14 PM CDT 07/14/2024 4:14 PM CDT Ynes Roman MD LAB POCT ORDERABLES - DEV ICE Final Result Performing Organization Address [facility] Co de Phone Number [facility] Department [place] [address] * XR Chest 1 View (07/14/2024 3:00 PM CDT) Anatomical Region Laterality Modality Body, Chest N/A Computed Radiogr aphy 07/14/2024 10:4 0 PM CDT Impressions 07/14/2024 10:40 PM CDT 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 ??However, a wire again projects over the right lower lobe pulmonary artery, unchanged from prior. There is unchanged mild bibasilar atelectasis. ??There is no definite pleural effusion. ??No pneumothorax is identified. ??The cardiomediastinal silhouette is unchanged, with unchanged mild cardiomegaly and pulmonary artery enlargement. Electronically signed by: Liban Graff M.D. 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 However, a wire again projects over the right lower lobe pulmonary artery, unchanged from prior. There is unchanged mild bibasilar atelectasis. There is no definite pleural effusion. No pneumothorax is identified. The cardiomediastinal silhouette is unchanged, with unchanged mild cardiomegaly and pulmonary artery enlargement. Electronically signed by: Liban Graff M.D. Ynes Roman MD IMG XR PROCEDURES Final R esult * (ABNORMAL) aPTT (07/14/2024 11:54 AM CDT) aPTT 27(L) 28 - 38 sec Comment: Interpretive Data Heparin therapeutic range: 66.0 - 100.0 seconds. Range based on correlation with therapeutic heparin activity range of 0.3 - 0.7 Units/mL. Current interpretive data was last revised on 2023. Blood 07/14/2024 11:5 4 AM CDT 07/14/2024 1:27 PM CDT [address]ative [facility] - 07/14/2024 1:58 PM CDT STAT PTT timing: - Draw 6 hours after heparin infusion initiation - Draw 6 hours after every dose change until 2 consecutive PTTs are therapeutic - Once 2 consecutive PTTs are therapeutic, obtain with daily labs until infusion is discontinued - - Restart every 6 hour lab draws and follow instructions accordingly if PTT is outside of therapeutic range Do not draw lab from IV line that is actively infusing heparin. ??Use the opposite arm. ??If arm with actively infusing heparin must be used, pause the infusion for at least 2 minutes, and draw specimen below the IV site. ??For patients with a central venous catheter (CVC), lab must be drawn peripherally (not from CVC). us Elvira Cooper MD LAB BLOOD ORDERABLES Ayanna l Result [facility] Department [place] [address] * Protime-INR (07/14/2024 11:54 AM CDT) PT 12.1 9.7 - 13.0 sec INR 1.12 0.90 - 1.20 [facility] Comment: Interpretive data Oral anticoagulant therapeutic ranges: Venous thromboembolism prophylaxis or treatment: 2.0-3.0 CARDIOLOGY Standard range: 2.0-3.0 High-intensity range: 2.5-3.5 Refer to indication-specific guidelines for appropriate target ranges for prosthetic heart valve replacement. Current interpretive data was last revised on 2019. Blood 07/14/2024 11:5 4 AM CDT 07/14/2024 1:27 PM CDT us Ynes Roman MD LAB BLOOD ORDERABLES Ayanna l Result Performing Organization Address City/[facility] Co de Phone Number [facility] [place] [address] * (ABNORMAL) POCT glucose (07/14/2024 11:26 AM CDT) Glucose, POC 310(H) 70 - 199 mg/dL Blood 07/14/2024 11:2 6 AM CDT 07/14/2024 11:26 AM CDT us Ynes Roman MD LAB POCT ORDERABLES - DEV ICE Final Result Performing Organization Address [facility] Co de Phone Number [facility] [place] [address] * (ABNORMAL) POCT glucose (07/14/2024 8:18 AM CDT) Glucose, POC 331(H) 70 - 199 mg/dL Blood 07/14/2024 8:1 8 AM CDT 07/14/2024 8:18 AM CDT us Ynes Roman MD LAB POCT ORDERABLES - DEV ICE Final Result Performing Organization Address [facility] Co de Phone Number [facility] [place] [address] * (ABNORMAL) POCT glucose (07/14/2024 8:17 AM CDT) Glucose, POC 248(H) 70 - 199 mg/dL Blood 07/14/2024 8:17 AM CDT 07/14/2024 8:17 AM CDT us Ynes Roman MD LAB POCT ORDERABLES - DEV ICE Final Result Performing Organization Address City/[facility] Co de Phone Number [facility] Department [place] [address] * (ABNORMAL) CBC without differential (07/13/2024 9:03 PM CDT) [facility] WBC 5.6 3.8 - 9.9 K/cumm Hgb 11.1(L) 11.9 - 15.5 g/dL [facility] Hct 35.5(L) 35.6 - 45.5 % [facility] Plt 242 150 - 400 K/cumm [facility] MPV 9.4 9.1 - 12.3 fL [facility] RBC 3.46(L) 3.90 - 5.20 M/cumm [facility] MCV 102.6(H) 81.3 - 96.4 fL [facility] MCH 32.1 27.1 - 33.3 pg [facility] MCHC 31.3(L) 32.3 - 35.7 g/dL [facility] RDW CV 14.2 11.1 - 14.9 % [facility] RDW SD 52.8(H) 35.7 - 48.1 fL [facility] NRBC abs 0.00 0.00 - 0.01 K/cumm [facility] Blood 07/13/2024 9:03 PM CDT 07/13/2024 9:47 PM CDT us Elvira Cooper MD LAB BLOOD ORDERABLES Ayanna vazquez Result [facility] Department [place] [address] * eGFR (07/13/2024 9:00 PM CDT) [facility] eGFR 83 >=60 mL/min/1. 73 m2 Comment: Interpretive Data Reference Interval Normal ?>/= 90 mL/min/1.73m2 Mildly decreased* ? 60 - 89 mL/min/1.73m2 Mildly to moderately decreased ?45 - 59 mL/min/1.73m2 Moderately to severely decreased ??30 - 44 mL/min/1.73m2 Severely decreased ?15 - 29 mL/min/1.73m2 Kidney Failure ?< 15 ??mL/min/1.73m2 *Relative to young adult level Estimated glomerular filtration rate is determined by the 2020 CKD-EPI equation recommended by the National Kidney Foundation (A Unifying Approach to GFR Estimation: Recommendations of the NKF-ASK Task Force on Reassessing the Inclusion of Race in Diagnosing Kidney Disease, JASN 2020). The CKD-EPI equation should not be used for patients with unstable renal function and has not been validated in children and those over 70. Current interpretive data was last reviewed 2021. Blood 07/13/2024 9:00 PM CDT 07/13/2024 9:45 PM CDT Elvira Cooper MD LAB BLOOD ORDERABLES Ayanna l Result Performing Organization Address City/[facility]/ZIP Co de Phone Number [facility] [place] [address] * Magnesium (07/13/2024 9:00 PM CDT) Magnesium 1.8 1.4 - 2.5 mg/dL Blood 07/13/2024 9:00 PM CDT 07/13/2024 9:45 PM CDT Elvira Cooper MD LAB BLOOD ORDERABLES Ayanna l Result [facility] [place] [address] * (ABNORMAL) Comprehensive metabolic panel (07/13/2024 9:00 PM CDT) Sodium 137 135 - 145 mmol/L Potassium, pl 4.4 3.3 - 4.9 mmol/L [facility] Chloride 99 97 - 110 mmol/L [facility] CO2 30 22 - 32 mmol/L [facility] Anion gap 8 2 - 15 mmol/L [facility] BUN 13 6 - 25 mg/dL [facility] Creatinine 0.80 0.60 - 1.10 mg/dL [facility] Glucose 310(H) 70 - 199 mg/dL [facility] Comment: Interpretive Data Fasting glucose >/= 126 mg/dl is diagnostic for diabetes. ?? Fasting is defined as no caloric intake for at least 8 hours. Fasting glucose between 100 mg/dl to 125 mg/dl is diagnostic of prediabetes. In a patient with classic symptoms of hyperglycemia or hyperglycemic crisis, a random glucose >/= 200 mg/dl is diagnostic for diabetes. In the absence of unequivocal hyperglycemia, results should be confirmed by repeat testing. The classification and Diagnosis of Diabetes Diabetes Care 2021; 46: S19-S40. Current interpretive data was last revised 2022. Calcium 9.4 8.5 - 10.3 mg/dL [facility] Bilirubin, total 0.3 0.1 - 1.2 mg/dL [facility] Protein, pl 7.6 6.5 - 8.5 g/dL [facility] Albumin 3.5 3.5 - 5.0 g/dL [facility] Alk phos 158(H) 40 - 130 Units/L [facility] ALT 12 7 - 45 Units/L [facility] AST 46(H) 10 - 45 Units/L [facility] Blood 07/13/2024 9:00 PM CDT 07/13/2024 9:45 PM CDT us Elvira Cooper MD LAB BLOOD ORDERABLES Ayanna vazquez Result [facility] Department [place] [address] * POCT glucose (07/13/2024 7:58 PM CDT) [facility] Signature Glucose, POC 186 70 - 199 mg/dL Blood 07/13/2024 7:58 PM CDT 07/13/2024 7:58 PM CDT us Elvira Cooper MD LAB POCT ORDERABLES - DEV ICE Final Result [facility] Department [place] [address] * (ABNORMAL) Aerobic culture and gram stain Hardware Lead (07/13/2024 5:34 PM CDT) Direct Specimen Exam Stain: Rare polymorphonuclear leukocytes seen. No organisms seen. Report Final Report: Few Staphylococcus aureus Methicillin susceptible (MSSA) by penicillin binding protein 2a (PBP2a) testing. This isolate is presumed to be resistant to clindamycin based on detection of inducible clindamycin resistance. Clindamycin may still be effective in some patients. (.) [facility] Organism STAPHYLOCOCCUS AUREUS [facility] Hardware (Lead) 07/13/2024 5 :34 PM CDT 07/13/2024 6:47 PM CDT Narrative [facility] - 07/18/2024 12:57 PM CDT Ventricular lead tip Testing performed by [facility] ([phone]) Specimens submitted from normally sterile body sites will have all bacterial morphotypes identified. ??Specimens that contain grossly mixed alisa and/or are from body sites that are not normally sterile will be examined for Staphylococcus aureus, Pseudomonas aeruginosa, beta-hemolytic strep, vancomycin-resistant Enterococcus and fungus. ??If any of these are isolated, the organism will be reported. Current interpretive data was last revised on 2017. Organism Antibiotic Method Susceptibility Staphylococcus aureus Doxycycline (DEZ) INTERPRETATIO N Susceptible Staphylococcus aureus Linezolid (DEZ) INTERPRETATIO N Susceptible Staphylococcus aureus Trimethoprim with Sulfamethoxazole (DEZ) INTERPRETATION Susceptible Staphylococcus aureus Clindamycin (DEZ) INTERPRETATIO N Resistant Staphylococcus aureus Erythromycin (DEZ) INTERPRETATIO N Resistant Staphylococcus aureus Vancomycin (DEZ) INTERPRETATIO N Susceptible Staphylococcus aureus Oxacillin (DEZ) INTERPRETATIO N Susceptible Staphylococcus aureus Cefazolin (DEZ) INTERPRETATIO N Susceptible Staphylococcus aureus Ceftriaxone (DEZ) INTERPRETATIO N Susceptible Elvira Cooper MD LAB MICROBIOLOGY - GENERA L ORDERABLES Final Result Performing Organization Address [facility] Co de Phone Number OLAMIDE ALEXAND[facility] [place] [address] * Aerobic culture and gram stain Hardware Lead (07/13/2024 5:34 PM CDT) Direct Specimen Exam Stain: Few polymorphonuclear leukocytes seen. No organisms seen. Report Final Report: No growth [facility] Hardware (Lead) 07/13/2024 5 :34 PM CDT 07/13/2024 6:45 PM CD[address] [facility] - 07/18/2024 12:57 PM CDT Atrial lead tip Testing performed by [facility] ([phone]) Specimens submitted from normally sterile body sites will have all bacterial morphotypes identified. ??Specimens that contain grossly mixed alisa and/or are from body sites that are not normally sterile will be examined for Staphylococcus aureus, Pseudomonas aeruginosa, beta-hemolytic strep, vancomycin-resistant Enterococcus and fungus. ??If any of these are isolated, the organism will be reported. Current interpretive data was last revised on 2017. Elvira Cooper MD LAB MICROBIOLOGY - GENERA L ORDERABLES Final Result Performing Organization Address [facility] de Phone Number OLAMIDE ALEXANDER [facility] [place] [address] * FL Fluoroscopy < 1 Hour (07/13/2024 5:30 PM CDT) Narrative RAD_PACS_[facility] - 07/13/2024 5:31 PM CDT The images from this study are not interpreted by Radiology. ??Please refer to the physician's procedure / OR operative note. Robin Watkins MD IMG FLUOROSCOPY PROC EDURES Final Result Performing Organization Address [facility] Co de Phone Number [facility] * (ABNORMAL) POC Blood Gas and Chemistries, Arterial - (07/13/2024 5:18 PM CDT) pH, Art POC 7.44 7.35 - 7.45 pCO2, Art POC 41 35 - 45 mmHg [facility] pO2, Art POC 265(H) 83 - 108 mmHg [facility] Na, POC 140 135 - 145 mmol/L [facility] K POC 3.4 3.3 - 4.9 mmol/L [facility] Comment: Interpretive Data Not all point of care methods assess for hemolysis. Confirm with instrument and retest K+ if not consistent with clinical signs and symptoms. Current Interpretive Data was last revised on 2024. Cl, POC 104 97 - 110 mmol/L [facility] Ionized Ca, POC 4.98 4.50 - 5.10 mg/dL [facility] Glucose, POC 82 70 - 199 mg/dL [facility] Lactate, POC 1.2 0.7 - 2.2 mmol/L [facility] SO2 (hugo) arterial 100(H) 90 - 95 % [facility] Base excess, POC 3.3 mmol/L [facility] HCO3, Art POC 28 20 - 30 mmol/L [facility] Hct, POC 33.0(L) 36.3 - 45.3 % [facility] Total Hb, POC 11.1(L) 11.9 - 15.5 g/dL [facility] Blood 07/13/2024 5:18 PM CDT 07/13/2024 5:18 PM CDT us Elvira Cooper MD LAB POCT ORDERABLES - DEV ICE Final Result [facility] Department [place] [address] * CT AN PROCEDURE PLACEHOLDER (07/13/2024 5:15 PM CDT) Anatomical Region Laterality Modality Other Narrative 07/13/2024 5:15 PM CDT Jolanta Abdi MD ? 07/13/2024 ??5:41 PM CHANCE Date/time: Staff: Supervising anesthesiologist: Jolanta Abdi MD Preprocedure checklist: patient identified, procedure contraindications assessed, procedure consent, risks, benefits and alternatives discussed, monitors and equipment checked and CHANCE probe inserted into esophagus using lubricating jelly General procedure Information: Reason for procedure/indications: assessment of surgical repair, hemodynamic instability and hemodynamic monitoring Performed: personally Procedure performed at surgeon's request: yes Results discussed with surgeon: yes Images submitted to archive: ??yes Patient location: OR Intubated: yes Bite blocked placed: yes Probe Insertion: easy Complications: no Probe type: adult Modalities: 2D imaging, continuous wave Doppler, pulsed wave Doppler and color Doppler Billing information: Physician requesting echo: Connie Baig MD CPT code: CHANCE placement and diagnostic exam, non-congenital (98340) ICD code(s) for medical necessity: 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 Echocardiographic and doppler measurements: Ventricles: Left ventricle: Cavity size: normal Hypertrophy: Yes Thrombus: No Global function: moderately decreased LVEF%: 30-40 Right ventricle: Cavity size: normal Hypertrophy: no Thrombus: No Global function: mildly decreased RVEF%: 40-50 Interventricular septum: normal Regional function: 1- Basal anteroseptal: hypokinetic 2- Basal anterior: hypokinetic 3- Basal anterolateral: hypokinetic 4- Basal inferolateral: hypokinetic 5- Basal inferior: hypokinetic 6- Basal inferoseptal: hypokinetic 7- Mid anteroseptal: hypokinetic 8- Mid anterior: hypokinetic 9- Mid anterolateral: hypokinetic 10- Mid inferolateral: hypokinetic 11- Mid inferior: hypokinetic 12- Mid inferoseptal: hypokinetic 13- Apical anterior: hypokinetic 14- Apical lateral: hypokinetic 15- Apical inferior: hypokinetic 16- Apical septal: hypokinetic 17- [place]: hypokinetic Valves: Aortic Valve: Annulus: normal Leaflet morphology: normal Leaflet motion: normal Stenosis: none Regurgitation: trace Mitral valve: Annulus: normal Leaflet morphology anterior: normal Leaflet morphology posterior: normal Leaflet motion anterior: normal Leaflet motion posterior: normal Stenosis: none Regurgitation: trace Tricuspid valve: Annulus: normal Leaflet morphology: normal Leaflet motion: normal Stenosis: none Regurgitation: moderate Pulmonic valve: Regurgitation: mild Aorta: Ascending aorta: Size: normal Dissection: no Plaque thickness(mm): 0-3 Plaque mobile: no Aortic arch: Size: normal Dissection: no Plaque thickness(mm): 0-3 Plaque mobile: no Descending aorta: Size: normal Dissection: no Plaque thickness(mm): 0-3 Plaque mobile: no Atria: Right atrium: Size: normal Spontaneous echo contrast: No Thrombus: no Mass: No Left atrium: Size: normal (normal) Spontaneous echo contrast: No Thrombus: no Mass: No Left atrial appendage: indeterminate for thrombus Interatrial septum: normal Diastolic function and other findings: Diastolic function: indeterminate Pericardium: normal Pulmonary venous flow: blunted systolic flow Pre-procedure CHANCE exam summary: There is moderate LV dysfunction with an estimated LVEF of 30-35%. There is mildly reduced RV function with moderate TR. There is a large vegetation on the tricuspid leaflet vs pacing wire (favoring tricuspid valve) Postprocedure (follow-up) CHANCE exam: LV: unchanged RV: unchanged Interventricular septum: unchanged Aortic valve: unchanged Mitral valve: unchanged Pulmonic valve: unchanged Tricuspid valve: unchanged Atria: unchanged Aorta: unchanged Pericardium: unchanged Left pleural: unchanged Right pleural: unchanged Postprocedure (follow-up) CHANCE exam comments: There is a new highly mobile dentisty seen in the RA. It is unclear whether or not it is attached to the new central line or not. The vegetation and TR severity is unchanged. There is no pericardial effusion,. Attestation Statement: By signing this report the attending anesthesiologist certifies that he or she has personally reviewed and interpreted the echocardiogram and has reviewed and or edited and agrees with the written comments contained within the report. us Jolanta Abdi MD ANESTHESIA ORDERABLES Ayanna l Result * Central Venous Line (07/13/2024 5:04 PM CDT) Narrative Stepan Love MD - 07/13/2024 5:04 PM CDT Stepan Love MD ? 07/13/2024 ??5:04 PM Central Venous Line Patient location: OR Indication: central venous access Staff: Supervising provider: Jolanta Abdi MD Placed by: Resident: Stepan Love MD Procedure prep: Patient position: Trendelenburg. PPE: provider hand hygiene, provider hat/mask, sterile gloves, sterile gown, full body drape, sterile gel, sterile probe covers and large sterile drape. Prep solution: chlorhexadine/alcohol was applied to area. Ultrasound Evaluation: Ultrasound was prepped into field and used prior to prep. Ultrasound image(s) saved to archive. Prior to the procedure, the cannulated vein was evaluated by ultrasound and deemed suitably patent for access.This vessel was accessed using real-time ultrasound guidance and an image was placed in the patient's medical record Central line: Laterality: right Site: internal jugular Catheter type: quad lumen Catheter length: 16 cm Technique: anatomy identified with ultrasound, Seldinger technique, wire threaded easily and wire removed intact Venous verification: manometry, ultrasound confirmation and CHANCE confirmation Post insertion: all ports aspirated, all ports flushed easily, line sutured in place and occlusive dressing applied Chlorhexidine patch applied: yes Number of attempts: 1 Assessment: Events: patient tolerated procedure well with no complications us Jolanta Abdi MD ANESTHESIA ORDERABLES Ayanna l Result * Airway (07/13/2024 5:03 PM CDT) Narrative Stepan Love MD - 07/13/2024 5:03 PM CDT Stepan Love MD ? 07/13/2024 ??5:04 PM Airway Patient location: OR Urgency: elective Indications for airway management: anesthesia Difficult airway: no Staff: Supervising provider: Jolanta Abdi MD Placed by: Resident: Stepan Love MD Emergent airway documentation: Risks and benefits discussed: yes Consent obtained: yes Consent given by: patient Airway prep: Preoxygenated: yes Patient position: sniffing Mask difficulty assessment: 1 - vent by mask Spontaneous ventilation during airway: absent Sedation level during airway: GA Final airway details: Final airway type: endotracheal airway Tube type: ETT ETT size: 7.0 mm Cuffed: yes Technique used for successful ETT placement: video laryngoscopy Devices/Methods used in placement: stylet Insertion site: oral Blade type: Bonnie Video blade type: Shetty Cormack-Lehane (video): grade I - full view of glottis Cuff inflated with: air ETT to gums: 23 cm Placement verified by: auscultation and CO2 detection Airway secured with: silk tape Number of attempts: 1 us Jolanta Abdi MD ANESTHESIA ORDERABLES Ayanna l Result * Prepare RBC: 2 Units (07/13/2024 4:37 PM CDT) Product code [id number] Unit Number [id number] 7-E OLAMIDE ALEXANDER Product Blood Type OPOS OLAMIDE ALEXANDER Dispense Status RETURNED OLAMIDE ALEXANDER Product code [id number] OLAMIDE ALEXANDER Unit Number [id number] [id number] [facility] Product Blood Type [facility]OS [facility] Dispense Status [facility] Blood 07/13/2024 4:37 PM CDT 07/13/2024 4:37 PM CDT Narrative OLAMIDE ALEXANDER - 07/13/2024 6:38 PM CDT Are special requirements needed? (All products are leukoreduced and CMV- safe)- >No Date required:-[id number] LRRBC # of [id number] Reasons:-Intra-op transfusion} us Jolanta Abdi MD BLOOD BANK PRODUCT ORDERAB LES Final Result [facility] Department [place] [address] * Arterial Line (07/13/2024 4:34 PM CDT) Narrative Stepan Love MD - 07/13/2024 4:34 PM CDT Stepan Love MD ? 07/13/2024 ??4:35 PM Arterial Line Patient location: OR End time: 07/13/2024 3:04 PM Indication: continuous blood pressure monitoring and blood sampling needed Staff: Supervising provider: Jolanta Abdi MD Placed by: Resident: Stepan Love MD Procedure prep: Prep solution: chlorhexadine/alcohol Prep: sterile gloves Arterial line: Catheter size: 20 gauge Catheter type: angiocath Laterality: right Site: radial artery Line secured: tape and Tegaderm Results: good waveform and good blood return Number of attempts: 2 Assessment: Events: patient tolerated procedure well with no complications us Jolanta Abdi MD ANESTHESIA ORDERABLES Ayanna l Result * CHANCE Add-On For OR (07/13/2024 3:38 PM CDT) Narrative [facility] PROS[facility]V_CARDIOREPORT_CONS SCIMAGE - 07/13/2024 3:38 PM CDT Procedure Auto Finalized by Rule: BW CV CHANCE DURING CASE OR Please see the Anesthesiologist's Procedure Note for the results. us Jolanta Abdi MD CV ECHO PROCEDURES Final R esult Performing Organization Address [facility] Co de Phone Number [facility] PROSOLV_CARDIOREPORT_CONS SCIMAGE * Type and screen (07/13/2024 3:09 PM CDT) Pathologist [facility] [place] ABO Rh O Positive Marguerite, indirect Negative [facility] Blood 07/13/2024 3:09 PM CDT 07/13/2024 3:18 PM CDT Narrative [facility] - 07/13/2024 4:24 PM CDT Has the patient had Daratumumab or Isatuximab in the past 6 months?->Unknown us Stepan Love MD LAB BLOOD BANK TEST ORDER DONATO Final Result Performing Organization Address [facility] de Phone Number [facility] Department [place] [address] * POCT glucose (07/13/2024 3:01 PM CDT) Glucose, POC 70 70 - 199 mg/dL Blood 07/13/2024 3:01 PM CDT 07/13/2024 3:01 PM CDT us Elvira Cooper MD LAB POCT ORDERABLES - DEV ICE Final Result Performing Organization Address [facility] Co de Phone Number [facility] Department [place] [address] * POCT glucose (07/13/2024 11:45 AM CDT) Glucose, POC 108 70 - 199 mg/dL Blood 07/13/2024 11:4 5 AM CDT 07/13/2024 11:45 AM CDT Elvira Cooper MD LAB POCT ORDERABLES - DEV ICE Final Result Performing Organization Address [facility] de Phone Number [facility] [place] [address] * POCT glucose (07/13/2024 8:00 AM CDT) Glucose, POC 144 70 - 199 mg/dL Blood 07/13/2024 8:00 AM CDT 07/13/2024 8:00 AM CDT Elvira Cooper MD LAB POCT ORDERABLES - DEV ICE Final Result Performing Organization Address [facility] de Phone Number [facility] [place] [address] * eGFR (07/13/2024 12:58 AM CDT) eGFR 82 >=60 mL/min/1. 73 m2 Comment: Interpretive Data Reference Interval Normal ?>/= 90 mL/min/1.73m2 Mildly decreased* ? 60 - 89 mL/min/1.73m2 Mildly to moderately decreased ?45 - 59 mL/min/1.73m2 Moderately to severely decreased ??30 - 44 mL/min/1.73m2 Severely decreased ?15 - 29 mL/min/1.73m2 Kidney Failure ?< 15 ??mL/min/1.73m2 *Relative to young adult level Estimated glomerular filtration rate is determined by the 2020 CKD-EPI equation recommended by the National Kidney Foundation (A Unifying Approach to GFR Estimation: Recommendations of the NKF-ASK Task Force on Reassessing the Inclusion of Race in Diagnosing Kidney Disease, JASN 2020). The CKD-EPI equation should not be used for patients with unstable renal function and has not been validated in children and those over 70. Current interpretive data was last reviewed 2021. Blood 07/13/2024 12:5 8 AM CDT 07/13/2024 5:14 AM CDT Elvira Cooper MD LAB BLOOD ORDERABLES Ayanna l Result Performing Organization Address [facility] Co de Phone Number [facility] [place] [address] * (ABNORMAL) aPTT (07/13/2024 12:58 AM CDT) aPTT 60(H) 28 - 38 sec Comment: Interpretive Data Heparin therapeutic range: 66.0 - 100.0 seconds. Range based on correlation with therapeutic heparin activity range of 0.3 - 0.7 Units/mL. Current interpretive data was last revised on 2023. Blood 07/13/2024 12:5 8 AM CDT 07/13/2024 5:08 AM CDT Becca Wilcox MD LAB BLOOD ORDERABLES Final Result Performing Organization Address [facility] Co de Phone Number [facility] [place] [address] * (ABNORMAL) CBC without differential (07/13/2024 12:58 AM CDT) WBC 5.0 3.8 - 9.9 K/cumm Hgb 10.7(L) 11.9 - 15.5 g/dL [facility] Hct 33.9(L) 35.6 - 45.5 % [facility] Plt 280 150 - 400 K/cumm [facility] MPV 10.5 9.1 - 12.3 fL [facility] RBC 3.35(L) 3.90 - 5.20 M/cumm [facility] MCV 101.2(H) 81.3 - 96.4 fL [facility] MCH 31.9 27.1 - 33.3 pg [facility] MCHC 31.6(L) 32.3 - 35.7 g/dL [facility] RDW CV 14.3 11.1 - 14.9 % [facility] RDW SD 53.1(H) 35.7 - 48.1 fL [facility] NRBC abs 0.00 0.00 - 0.01 K/cumm [facility] Blood 07/13/2024 12:5 8 AM CDT 07/13/2024 4:34 AM CDT Elvira Cooper MD LAB BLOOD ORDERABLES Ayanna vazquez Result [facility] Department [place] [address] * (ABNORMAL) Comprehensive metabolic panel (07/13/2024 12:58 AM CDT) Sodium 136 135 - 145 mmol/L Potassium, pl 4.5 3.3 - 4.9 mmol/L [facility] Chloride 96(L) 97 - 110 mmol/L [facility] CO2 29 22 - 32 mmol/L [facility] Anion gap 11 2 - 15 mmol/L [facility] BUN 14 6 - 25 mg/dL [facility] Creatinine 0.81 0.60 - 1.10 mg/dL [facility] Glucose 199 70 - 199 mg/dL [facility] Comment: Interpretive Data Fasting glucose >/= 126 mg/dl is diagnostic for diabetes. ?? Fasting is defined as no caloric intake for at least 8 hours. Fasting glucose between 100 mg/dl to 125 mg/dl is diagnostic of prediabetes. In a patient with classic symptoms of hyperglycemia or hyperglycemic crisis, a random glucose >/= 200 mg/dl is diagnostic for diabetes. In the absence of unequivocal hyperglycemia, results should be confirmed by repeat testing. The classification and Diagnosis of Diabetes Diabetes Care 2021; 46: S19-S40. Current interpretive data was last revised 2022. Calcium 9.6 8.5 - 10.3 mg/dL [facility] Bilirubin, total 0.3 0.1 - 1.2 mg/dL [facility] Protein, pl 7.5 6.5 - 8.5 g/dL [facility] Albumin 3.4(L) 3.5 - 5.0 g/dL [facility] Alk phos 147(H) 40 - 130 Units/L [facility] ALT 9 7 - 45 Units/L [facility] AST 30 10 - 45 Units/L [facility] Blood 07/13/2024 12:5 8 AM CDT 07/13/2024 4:34 AM CDT Elivra Cooper MD LAB BLOOD ORDERABLES Ayanna l Result [facility] Department [place] [address] * (ABNORMAL) POCT glucose (07/12/2024 11:01 PM CDT) Glucose, POC 365(H) 70 - 199 mg/dL Blood 07/12/2024 11:0 1 PM CDT 07/12/2024 11:01 PM CDT Elvira Cooper MD LAB POCT ORDERABLES - DEV ICE Final Result [facility] [place] [place] [address] * POCT glucose (07/12/2024 8:13 AM CDT) Glucose, POC 133 70 - 199 mg/dL Blood 07/12/2024 8:13 AM CDT 07/12/2024 8:13 AM CDT Elvira Cooper MD LAB POCT ORDERABLES - DEV ICE Final Result Performing Organization Address [facility] Co de Phone Number [facility] Department [place] [address] * (ABNORMAL) aPTT (07/12/2024 4:17 AM CDT) [facility] aPTT 133(H) 28 - 38 sec Comment: No clot detected in sample Repeated and verified - [id number] - 07/12/24, 5:57 AM Interpretive Data Heparin therapeutic range: 66.0 - 100.0 seconds. Range based on correlation with therapeutic heparin activity range of 0.3 - 0.7 Units/mL. Current interpretive data was last revised on 2023. Blood 07/12/2024 4:17 AM CDT 07/12/2024 5:30 AM CDT Narrative [facility] - 07/12/2024 5:57 AM CDT STAT PTT timing: - Draw 6 hours after heparin infusion initiation - Draw 6 hours after every dose change until 2 consecutive PTTs are therapeutic - Once 2 consecutive PTTs are therapeutic, obtain with daily labs until infusion is discontinued - - Restart every 6 hour lab draws and follow instructions accordingly if PTT is outside of therapeutic range Do not draw lab from IV line that is actively infusing heparin. ??Use the opposite arm. ??If arm with actively infusing heparin must be used, pause the infusion for at least 2 minutes, and draw specimen below the IV site. ??For patients with a central venous catheter (CVC), lab must be drawn peripherally (not from CVC). Elvira Cooper MD LAB BLOOD ORDERABLES Ayanna l Result Performing Organization Address [facility] Co de Phone Number [facility] Department [place] [address] * eGFR (07/11/2024 9:19 PM CDT) eGFR 70 >=60 mL/min/1. 73 m2 Comment: Interpretive Data Reference Interval Normal ?>/= 90 mL/min/1.73m2 Mildly decreased* ? 60 - 89 mL/min/1.73m2 Mildly to moderately decreased ?45 - 59 mL/min/1.73m2 Moderately to severely decreased ??30 - 44 mL/min/1.73m2 Severely decreased ?15 - 29 mL/min/1.73m2 Kidney Failure ?< 15 ??mL/min/1.73m2 *Relative to young adult level Estimated glomerular filtration rate is determined by the 2020 CKD-EPI equation recommended by the National Kidney Foundation (A Unifying Approach to GFR Estimation: Recommendations of the NKF-ASK Task Force on Reassessing the Inclusion of Race in Diagnosing Kidney Disease, JASN 2020). The CKD-EPI equation should not be used for patients with unstable renal function and has not been validated in children and those over 70. Current interpretive data was last reviewed 2021. Blood 07/11/2024 9:19 PM CDT 07/11/2024 9:48 PM CDT Elvira Cooper MD LAB BLOOD ORDERABLES Ayanna vazquez Result [facility] Department [place] [address] * (ABNORMAL) aPTT (07/11/2024 9:19 PM CDT) aPTT 51(H) 28 - 38 sec Comment: Interpretive Data Heparin therapeutic range: 66.0 - 100.0 seconds. Range based on correlation with therapeutic heparin activity range of 0.3 - 0.7 Units/mL. Current interpretive data was last revised on 2023. Blood 07/11/2024 9:19 PM CDT 07/11/2024 9:56 PM CDT Narrative [facility] - 07/11/2024 10:06 PM CDT STAT PTT timing: - Draw 6 hours after heparin infusion initiation - Draw 6 hours after every dose change until 2 consecutive PTTs are therapeutic - Once 2 consecutive PTTs are therapeutic, obtain with daily labs until infusion is discontinued - - Restart every 6 hour lab draws and follow instructions accordingly if PTT is outside of therapeutic range Do not draw lab from IV line that is actively infusing heparin. ??Use the opposite arm. ??If arm with actively infusing heparin must be used, pause the infusion for at least 2 minutes, and draw specimen below the IV site. ??For patients with a central venous catheter (CVC), lab must be drawn peripherally (not from CVC). us Elvira Cooper MD LAB BLOOD ORDERABLES Ayanna vazquez Result [facility] Department [place] [address] * (ABNORMAL) CBC without differential (07/11/2024 9:19 PM CDT) WBC 4.7 3.8 - 9.9 K/cumm Hgb 10.3(L) 11.9 - 15.5 g/dL [facility] Hct 33.1(L) 35.6 - 45.5 % [facility] Plt 255 150 - 400 K/cumm [facility] MPV 9.5 9.1 - 12.3 fL [facility] RBC 3.20(L) 3.90 - 5.20 M/cumm [facility] MCV 103.4(H) 81.3 - 96.4 fL [facility] MCH 32.2 27.1 - 33.3 pg [facility] MCHC 31.1(L) 32.3 - 35.7 g/dL [facility] RDW CV 14.3 11.1 - 14.9 % [facility] RDW SD 54.3(H) 35.7 - 48.1 fL [facility] NRBC abs 0.00 0.00 - 0.01 K/cumm [facility] Blood 07/11/2024 9:19 PM CDT 07/11/2024 9:48 PM CDT us Elvira Cooper MD LAB BLOOD ORDERABLES Ayanna l Result Performing Organization Address [facility] Co de Phone Number [facility] Department [place] [address] * Magnesium (07/11/2024 9:19 PM CDT) [facility] Magnesium 1.8 1.4 - 2.5 mg/dL Blood 07/11/2024 9:19 PM CDT 07/11/2024 9:48 PM CDT us Lynn Martinez MD LAB BLOOD ORDERABLES Fin al Result Performing Organization Address [facility] de Phone Number [facility] Department [place] [address] * (ABNORMAL) Comprehensive metabolic panel (07/11/2024 9:19 PM CDT) [facility] Sodium 136 135 - 145 mmol/L Potassium, pl 3.9 3.3 - 4.9 mmol/L [facility] Chloride 100 97 - 110 mmol/L [facility] CO2 27 22 - 32 mmol/L [facility] Anion gap 9 2 - 15 mmol/L [facility] BUN 15 6 - 25 mg/dL [facility] Creatinine 0.92 0.60 - 1.10 mg/dL [facility] Glucose 124 70 - 199 mg/dL [facility] Comment: Interpretive Data Fasting glucose >/= 126 mg/dl is diagnostic for diabetes. ?? Fasting is defined as no caloric intake for at least 8 hours. Fasting glucose between 100 mg/dl to 125 mg/dl is diagnostic of prediabetes. In a patient with classic symptoms of hyperglycemia or hyperglycemic crisis, a random glucose >/= 200 mg/dl is diagnostic for diabetes. In the absence of unequivocal hyperglycemia, results should be confirmed by repeat testing. The classification and Diagnosis of Diabetes Diabetes Care 2021; 46: S19-S40. Current interpretive data was last revised 2022. Calcium 9.1 8.5 - 10.3 mg/dL [facility] Bilirubin, total 0.3 0.1 - 1.2 mg/dL [facility] Protein, pl 7.2 6.5 - 8.5 g/dL [facility] Albumin 3.2(L) 3.5 - 5.0 g/dL [facility] Alk phos 155(H) 40 - 130 Units/L [facility] ALT 10 7 - 45 Units/L [facility] AST 24 10 - 45 Units/L [facility] Blood 07/11/2024 9:19 PM CDT 07/11/2024 9:48 PM CDT Elvira Cooper MD LAB BLOOD ORDERABLES Ayanna l Result [facility] Department [place] [address] * POCT glucose (07/11/2024 8:31 PM CDT) Glucose, POC 181 70 - 199 mg/dL Blood 07/11/2024 8:31 PM CDT 07/11/2024 8:31 PM CDT Elvira Cooper MD LAB POCT ORDERABLES - DEV ICE Final Result Performing Organization Address City/[facility]/ZIP Co de Phone Number [facility] Department [place] [address] * (ABNORMAL) POCT glucose (07/11/2024 5:14 PM CDT) Glucose, POC 209(H) 70 - 199 mg/dL Blood 07/11/2024 5:14 PM CDT 07/11/2024 5:14 PM CDT us Elvira Cooper MD LAB POCT ORDERABLES - DEV ICE Final Result [facility] Department [place] [address] * XR Chest PA Lateral 2 Views (07/11/2024 4:16 PM CDT) Anatomical Region Laterality Modality Body, Chest N/A Computed Radiogr aphy 07/11/2024 5:23 PM CDT Impressions 07/11/2024 5:43 PM CDT The current study is compared with the prior radiograph dated 06/14/2024. ??Also reviewed CT 07/06/2024 Pacer/fibrillator with leads in the right ventricular atrium present. No broken or abandoned pacemaker leads present. However, there is a wire in the right lower lobe pulmonary artery extending into the segmental pulmonary arteries, present since 05/29/2024. ??Not present on 03/07/2017 chest radiograph. ??Uncertain if this finding would be a contraindication to MRI. There is bibasilar atelectasis. ??No pulmonary edema, no focal consolidation. ??No pneumothorax. ??There is enlarged cardiac silhouette and pulmonary artery silhouette, stable from prior examination. ??Pulmonary nodules better characterized on recent CT. Dictated by: Regis Kc MD The radiology attending physician has personally reviewed this study, and had reviewed and/or edited this written report and agrees with it. Electronically signed by: Jonathan Garcia M.D. Narrative 07/11/2024 5:43 PM CDT EXAMINATION: 2 view chest radiograph Procedure Note Jonathan Garcia MD - 07/11/2024 EXAMINATION: 2 view chest radiograph IMPRESSION: The current study is compared with the prior radiograph dated 06/14/2024. Also reviewed CT 07/06/2024 Pacer/fibrillator with leads in the right ventricular atrium present. No broken or abandoned pacemaker leads present. However, there is a wire in the right lower lobe pulmonary artery extending into the segmental pulmonary arteries, present since 05/29/2024. Not present on 03/07/2017 chest radiograph. Uncertain if this finding would be a contraindication to MRI. There is bibasilar atelectasis. No pulmonary edema, no focal consolidation. No pneumothorax. There is enlarged cardiac silhouette and pulmonary artery silhouette, stable from prior examination. Pulmonary nodules better characterized on recent CT. Dictated by: Regis Kc MD The radiology attending physician has personally reviewed this study, and had reviewed and/or edited this written report and agrees with it. Electronically signed by: Jonathan Garcia M.D. Elvira Cooper MD IMG XR PROCEDURES Final R esult * (ABNORMAL) POCT glucose (07/11/2024 11:36 AM CDT) [facility] Glucose, POC 275(H) 70 - 199 mg/dL Blood 07/11/2024 11:3 6 AM CDT 07/11/2024 11:36 AM CDT Result [facility] Elvira Cooper MD LAB POCT ORDERABLES - DEV ICE Final Result Performing Organization Address City/[facility]/ZIP Co de Phone Number [facility] [place] [address] * (ABNORMAL) POCT glucose (07/11/2024 7:27 AM CDT) [facility] Glucose, POC 238(H) 70 - 199 mg/dL Blood 07/11/2024 7:27 AM CDT 07/11/2024 7:27 AM CDT Elvira Cooper MD LAB POCT ORDERABLES - DEV ICE Final Result [facility] Department [place] [address] * eGFR (07/10/2024 11:24 PM CDT) eGFR 69 >=60 mL/min/1. 73 m2 Comment: Interpretive Data Reference Interval Normal ?>/= 90 mL/min/1.73m2 Mildly decreased* ? 60 - 89 mL/min/1.73m2 Mildly to moderately decreased ?45 - 59 mL/min/1.73m2 Moderately to severely decreased ??30 - 44 mL/min/1.73m2 Severely decreased ?15 - 29 mL/min/1.73m2 Kidney Failure ?< 15 ??mL/min/1.73m2 *Relative to young adult level Estimated glomerular filtration rate is determined by the 2020 CKD-EPI equation recommended by the National Kidney Foundation (A Unifying Approach to GFR Estimation: Recommendations of the NKF-ASK Task Force on Reassessing the Inclusion of Race in Diagnosing Kidney Disease, JASN 2020). The CKD-EPI equation should not be used for patients with unstable renal function and has not been validated in children and those over 70. Current interpretive data was last reviewed 2021. Blood 07/10/2024 11:2 4 PM CDT 07/11/2024 12:11 AM CDT Elvira Cooper MD LAB BLOOD ORDERABLES Ayanna vazquez Result [facility] Department [place] [address] * (ABNORMAL) aPTT (07/10/2024 11:24 PM CDT) aPTT 84(H) 28 - 38 sec Comment: Interpretive Data Heparin therapeutic range: 66.0 - 100.0 seconds. Range based on correlation with therapeutic heparin activity range of 0.3 - 0.7 Units/mL. Current interpretive data was last revised on 2023. Blood 07/10/2024 11:2 4 PM CDT 07/10/2024 11:54 PM CDT Elvira Cooper MD LAB BLOOD ORDERABLES Ayanna vazquez Result Performing Organization Address [facility] Co de Phone Number [facility] Department [place] [address] * (ABNORMAL) CBC without differential (07/10/2024 11:24 PM CDT) WBC 5.9 3.8 - 9.9 K/cumm Hgb 11.3(L) 11.9 - 15.5 g/dL [facility] Hct 35.8 35.6 - 45.5 % [facility] Plt 352 150 - 400 K/cumm [facility] MPV 9.5 9.1 - 12.3 fL [facility] RBC 3.53(L) 3.90 - 5.20 M/cumm [facility] MCV 101.4(H) 81.3 - 96.4 fL [facility] MCH 32.0 27.1 - 33.3 pg [facility] MCHC 31.6(L) 32.3 - 35.7 g/dL [facility] RDW CV 14.6 11.1 - 14.9 % [facility] RDW SD 53.9(H) 35.7 - 48.1 fL [facility] NRBC abs 0.00 0.00 - 0.01 K/cumm [facility] Blood 07/10/2024 11:2 4 PM CDT 07/11/2024 12:10 AM CDT Elvira Coopre MD LAB BLOOD ORDERABLES Ayanna vazquez Result Performing Organization Address [facility]/ZIP Co de Phone Number [facility] Department [place] [address] * Magnesium (07/10/2024 11:24 PM CDT) Pathologist [facility] [place] Magnesium 1.9 1.4 - 2.5 mg/dL Blood 07/10/2024 11:2 4 PM CDT 07/11/2024 12:11 AM CDT us Elvira Cooper MD LAB BLOOD ORDERABLES Ayanna l Result [facility] Department [place] [address] * (ABNORMAL) Comprehensive metabolic panel (07/10/2024 11:24 PM CDT) Pathologist [facility] [place] Sodium 134(L) 135 - 145 mmol/L Potassium, pl 4.7 3.3 - 4.9 mmol/L [facility] Chloride 99 97 - 110 mmol/L [facility] CO2 26 22 - 32 mmol/L [facility] Anion gap 9 2 - 15 mmol/L [facility] BUN 19 6 - 25 mg/dL [facility] Creatinine 0.94 0.60 - 1.10 mg/dL [facility] Glucose 351(H) 70 - 199 mg/dL [facility] Comment: Interpretive Data Fasting glucose >/= 126 mg/dl is diagnostic for diabetes. ?? Fasting is defined as no caloric intake for at least 8 hours. Fasting glucose between 100 mg/dl to 125 mg/dl is diagnostic of prediabetes. In a patient with classic symptoms of hyperglycemia or hyperglycemic crisis, a random glucose >/= 200 mg/dl is diagnostic for diabetes. In the absence of unequivocal hyperglycemia, results should be confirmed by repeat testing. The classification and Diagnosis of Diabetes Diabetes Care 2021; 46: S19-S40. Current interpretive data was last revised 2022. Calcium 9.4 8.5 - 10.3 mg/dL [facility] Bilirubin, total 0.4 0.1 - 1.2 mg/dL [facility] Protein, pl 8.0 6.5 - 8.5 g/dL [facility] Albumin 3.6 3.5 - 5.0 g/dL [facility] Alk phos 176(H) 40 - 130 Units/L [facility] ALT 8 7 - 45 Units/L [facility] AST 28 10 - 45 Units/L [facility] Blood 07/10/2024 11:2 4 PM CDT 07/11/2024 12:11 AM CDT Elvira Cooper MD LAB BLOOD ORDERABLES Ayanna l Result Performing Organization Address [facility] Co de Phone Number [facility] [place] [address] * (ABNORMAL) aPTT (07/10/2024 4:59 PM CDT) aPTT 92(H) 28 - 38 sec Comment: Interpretive Data Heparin therapeutic range: 66.0 - 100.0 seconds. Range based on correlation with therapeutic heparin activity range of 0.3 - 0.7 Units/mL. Current interpretive data was last revised on 2023. Blood 07/10/2024 4:59 PM CDT 07/10/2024 5:30 PM CDT Narrative [facility] - 07/10/2024 5:38 PM CDT STAT PTT timing: - Draw 6 hours after heparin infusion initiation - Draw 6 hours after every dose change until 2 consecutive PTTs are therapeutic - Once 2 consecutive PTTs are therapeutic, obtain with daily labs until infusion is discontinued - - Restart every 6 hour lab draws and follow instructions accordingly if PTT is outside of therapeutic range Do not draw lab from IV line that is actively infusing heparin. ??Use the opposite arm. ??If arm with actively infusing heparin must be used, pause the infusion for at least 2 minutes, and draw specimen below the IV site. ??For patients with a central venous catheter (CVC), lab must be drawn peripherally (not from CVC). Elvira Cooper MD LAB BLOOD ORDERABLES Ayanna l Result Performing Organization Address [facility]/ZIP Co de Phone Number [facility] [place] [address] * (ABNORMAL) POCT glucose (07/10/2024 4:53 PM CDT) Glucose, POC 290(H) 70 - 199 mg/dL Blood 07/10/2024 4:53 PM CDT 07/10/2024 4:53 PM CDT us Elvira Cooper MD LAB POCT ORDERABLES - DEV ICE Final Result [facility] Department [place] [address] * Lipid panel (07/10/2024 2:21 PM CDT) Cholesterol 180 30 - 199 mg/dL Comment: Hemolyzed; result may be falsely elevated Interpretive Data Ages < or = 19 years ??Acceptable: ? <170 mg/dL ??Borderline high: ??170-199 mg/dL ??High: ? >or= 200 mg/dL Ages > or = 20 years ??Desirable: ?<200 mg/dL ??Borderline high: ??200-239 mg/dL ??High: ? >or= 240 mg/dL Literature References: 1. Expert Panel on Integrated Guidelines for Cardiovascular Health and Risk Reduction in Children and Adolescents. Pediatrics 2011;128:S213 2. NCEP Expert Panel. Circulation 2004;110:227 Current Interpretive Data was last revised on 2018. Triglycerides See Comment <=149 mg/dL [facility] Comment: Credited; Hemolyzed Specimen Interpretive Data Ages < or = 9 years ??Acceptable: ? <75 mg/dL ??Borderline high: ??75-99 mg/dL ??High: ? >or= 100 mg/dL Ages 10 to 20 years ??Acceptable: ? <90 mg/dL ??Borderline high: ??90-129 mg/dL ??High: ? >or= 130 mg/dL Ages > or = 20 years ??Desirable: ?<150 mg/dL ??Borderline high: ??150-199 mg/dL ??High: ? 200-499 mg/dL ?Very high: ?? >or= 499 mg/dL Literature References: 1. Expert Panel on Integrated Guidelines for Cardiovascular Health and Risk Reduction in Children and Adolescents. Pediatrics 2011;128:S213 2. NCEP Expert Panel. Circulation 2004;110:227 Current Interpretive Data was last revised on 2018. HDL 49 >=40 mg/dL [facility] Comment: Interpretive Data Ages < or = 19 years ??Acceptable: ? >45 mg/dL ??Borderline low: ?? 40-45 mg/dL ??Low: ? <40 mg/dL Ages > or = 20 years ??Desirable: ?>or= 60 mg/dL ??Low: ? <40 mg/dL Literature References: 1. Expert Panel on Integrated Guidelines for Cardiovascular Health and Risk Reduction in Children and Adolescents. Pediatrics 2011;128:S213 2. NCEP Expert Panel. Circulation 2004;110:227 Current Interpretive Data was last revised on 2018. LDL, calculated See Comment <=129 [facility] Comment: Unable to calculate Interpretive Data Ages < or = 19 years ??Acceptable: ? <110 mg/dL ??Borderline high: ??110-129 mg/dL ??High: ?>or= 130 mg/dL Ages > or = 20 years ??Optimal: ? <100 mg/dL ??Near optimal: ?100-129 mg/dL ??Borderline high: ?? 130-159 mg/dL ??High: ?>160 mg/dL Calculated using the Phelps LDL-C estimating equation. This equation was implemented on 2024. Prior to this date LDL-C was estimated using the Friedewald equation. Literature References: 1. Expert Panel on Integrated Guidelines for Cardiovascular Health and Risk Reduction in Children and Adolescents. Pediatrics 2011;128:S213 2. NCEP Expert Panel. Circulation 2004;110:227 3. Lenin M et al. CRISTINA Cardiol. 2020 February 07;5(5):540-548. doi: [email or web address] Current Interpretive Data was last revised on 2024. Non-HDL Cholesterol 131 mg/dL [facility] Comment: Interpretive Data Ages < or = 19 years ??Acceptable: ?<120 mg/dL ??Borderline high: ??120-144 mg/dL ??High: ?>145 mg/dL Ages > or = 20 years ??When triglycerides are >200 mg/dL, Non-HDL cholesterol is a secondary target of ? therapy with treatment goals that are 30 mg/dL greater than the LDL cholesterol target. ? Literature References: 1. Expert Panel on Integrated Guidelines for Cardiovascular Health and Risk Reduction in Children and Adolescents. Pediatrics 2011;128:S213 2. NCEP Expert Panel. Circulation 2004;110:227 Current Interpretive Data was last revised on 2018. Chol/HDL ratio 4 [facility] Blood 07/10/2024 2:21 PM CDT 07/10/2024 3:26 PM CDT us Elvira Cooper MD LAB BLOOD ORDERABLES Edit ed Result - Final Performing Organization Address City/[facility]/ZIP Co de Phone Number [facility] Department [place] [address] * (ABNORMAL) POCT glucose (07/10/2024 2:15 PM CDT) Glucose, POC 210(H) 70 - 199 mg/dL Blood 07/10/2024 2:15 PM CDT 07/10/2024 2:15 PM CDT Elvira Cooper MD LAB POCT ORDERABLES - DEV ICE Final Result [facility] Department [place] [address] * TRANSESOPHAGEAL ECHO (CHANCE) W DOPPLER/CF WO CONTRAST (07/10/2024 12:29 PM CDT) Anatomical Region Laterality Modality Echocardiography 07/10/2024 10:0 0 AM CDT Narrative 07/10/2024 12:46 PM CDT Patient name: Loretta Penn Date of test: 07/10/2024 Date of : 1960 (F) Hospital #: 0 ?Location: [facility] Cardiac Diagnostic Lab Interpreted by: Da Ayala MD Web Press Operator Assistant: Emily King MD RN: Reason for Test: Concern for endocarditis, has ICD and recurrent MSSA bacteremia Study quality: Technically good Referring Physician: ELVIRA COOPER MD Contrast Agent: Aortic valve: tricuspid, and is mildly thickened, and the motion Normal Aortic root: Normal ? Aortic Arch: Normal Ascending Aorta: Normal ? Descending Aorta: mild atherosclerosis Pulmonic valve: Normal ? Pulmonary Artery: Normal Pulmonary vein: systolic blunting Mitral valve: moderately thickened, motion Normal, and annulus is Normal Tricuspid valve: vegetation present, Pulmonic valve: Normal Valvular vegetation: present -tricuspid--large, multilobed, Mass/Thrombinone seen LA Appendage: dense smoke w/ layering sludge in tip; low veloc Wall Motion Scoring (1=Normal 2=Hypo 3=Akinetic 4=Dyskin. 5=Aneurysm 0=Not visualized) Short [facility]-Gastric:=2 S=2 I=2 P=2 L=2 A=2 Long [facility]-Gastric:BP=2 BA=2 MP=2 MA=2 AP=2 AA=2 Chamber Dimensions: RA: increased LA: increased, 5 cm RV: Normal LV: mildly dilated LV function: Moderate global left ventricular dysfunction. RV function: Normal Pericardium: No pericardial effusion seen Diastolic function: not assessed Atrial Septum: Normal Wall Thickness: RV: Normal LV: Normal Sedation/Tolerance: ??Sedation: CHANCE performed with monitored anesthesia care ??[employer] Admin: ?propofol 490 mg ??Tolerance: Patient tolerated procedure without difficulty. Doppler/CF results Aortic Value - Regurgitation: No AR seen Mitral Valve - Regurgitation: Mild MR Aortic Value - Stenosis: no Mitral Valve - Stenosis: no MS Aortic Value - Area: Mitral Value - Area: Aortic Value - Pressure Gradient: Mitral Value - Pressure Gradient: Aortic Value - Pressure Gradient - Peak: Tricuspid: mild TV regurgitation PA Pressure: 29 mm Hg + RAP mm HG MV ERO: ??cm2 Regurg. Volume: ??mL/beat Regurg. Fraction: 0 % Complication: None Doppler/CF comments No AR seen, Mild MR, no , no MS, mild TV regurgitation, normal PV. ? CHANCE Summary ? Emily King performed the CHANCE probe placement with Da Ayala MD present. Mildly dilated LV with moderate global hypokinesis. Normal RV size and systolic function. Biatrial enlargement. Low MAULIK emptying velocities (14 cm/s) with dense spontaneous echo contrast and layering sludge/thrombus within the tip. No PFO. Device wires in the RA and RV without associated vegetation. There is a large, mobile, bilobed vegetation (1.2 x 0.9 cm) attached to the RA side of the TV (suspect posterior leaflet). Mild TR. No other valvular vegetations seen. Mild MR. No pericardial effusion. Mild atherosclerosis of the descending aorta. 3D ImaginD imaging of device wire and TV vegetation This study was supervised and interpreted by Da Ayala MD Confirmed on ??07/10/2024 - 12:46:57 by Da Ayala MD ?? Audio Technician: Emily King By signing this report, the attending general hardware salesperson certifies that he or she has personally supervised and interpreted the echocardiogram and has reviewed and or edited and agrees with the written comments contained within the report. Procedure Note Da Ayala MD - 07/10/2024 Patient name: Loretta Penn Date of test: 07/10/2024 Date of : 1960 (F) Hospital #: 0 Location: [facility] Cardiac Diagnostic Lab Interpreted by: Da Ayala MD Web Press Operator Assistant: Emily King MD RN: Reason for Test: Concern for endocarditis, has ICD and recurrent MSSA bacteremia Study quality: Technically good Referring Physician: ELVIRA COOPER MD Contrast Agent: Aortic valve: tricuspid, and is mildly thickened, and the motion Normal Aortic root: Normal Aortic Arch: Normal Ascending Aorta: Normal Descending Aorta: mild atherosclerosis Pulmonic valve: Normal Pulmonary Artery: Normal Pulmonary vein: systolic blunting Mitral valve: moderately thickened, motion Normal, and annulus is Normal Tricuspid valve: vegetation present, Pulmonic valve: Normal Valvular vegetation: present -tricuspid--large, multilobed, Mass/Thrombinone seen LA Appendage: dense smoke w/ layering sludge in tip; low veloc Wall Motion Scoring (1=Normal 2=Hypo 3=Akinetic 4=Dyskin. 5=Aneurysm 0=Not visualized) Short [facility]-Gastric:=2 S=2 I=2 P=2 L=2 A=2 Long [facility]-Gastric:BP=2 BA=2 MP=2 MA=2 AP=2 AA=2 Chamber Dimensions: RA: increased LA: increased, 5 cm RV: Normal LV: mildly dilated LV function: Moderate global left ventricular dysfunction. RV function: Normal Pericardium: No pericardial effusion seen Diastolic function: not assessed Atrial Septum: Normal Wall Thickness: RV: Normal LV: Normal Sedation/Tolerance: Sedation: CHANCE performed with monitored anesthesia care Meds Admin: propofol 490 mg Tolerance: Patient tolerated procedure without difficulty. Doppler/CF results Aortic Value - Regurgitation: No AR seen Mitral Valve - Regurgitation: Mild MR Aortic Value - Stenosis: no Mitral Valve - Stenosis: no MS Aortic Value - Area: Mitral Value - Area: Aortic Value - Pressure Gradient: Mitral Value - Pressure Gradient: Aortic Value - Pressure Gradient - Peak: Tricuspid: mild TV regurgitation PA Pressure: 29 mm Hg + RAP mm HG MV ERO: cm2 Regurg. Volume: mL/beat Regurg. Fraction: 0 % Complication: None Doppler/CF comments No AR seen, Mild MR, no , no MS, mild TV regurgitation, normal PV. CHANCE Summary Emily King performed the CHANCE probe placement with Da Ayala MD present. Mildly dilated LV with moderate global hypokinesis. Normal RV size and systolic function. Biatrial enlargement. Low MAULIK emptying velocities (14 cm/s) with dense spontaneous echo contrast and layering sludge/thrombus within the tip. No PFO. Device wires in the RA and RV without associated vegetation. There is a large, mobile, bilobed vegetation (1.2 x 0.9 cm) attached to the RA side of the TV (suspect posterior leaflet). Mild TR. No other valvular vegetations seen. Mild MR. No pericardial effusion. Mild atherosclerosis of the descending aorta. 3D ImaginD imaging of device wire and TV vegetation This study was supervised and interpreted by Da Ayala MD Confirmed on 07/10/2024 - 12:46:57 by Da Ayala MD Audio Technician: Emily King By signing this report, the attending general hardware salesperson certifies that he or she has personally supervised and interpreted the echocardiogram and has reviewed and or edited and agrees with the written comments contained within the report. us Elvira Cooper MD CV ECHO PROCEDURES Final Result * POCT glucose (07/10/2024 9:49 AM CDT) [facility] Glucose, POC 142 70 - 199 mg/dL Blood 07/10/2024 9:49 AM CDT 07/10/2024 9:49 AM CDT Elvira Cooper MD LAB POCT ORDERABLES - DEV ICE Final Result Performing Organization Address City/[facility]/ZIP Co de Phone Number [facility] Department [place] [address] * POCT glucose (07/10/2024 7:45 AM CDT) Glucose, POC 144 70 - 199 mg/dL Blood 07/10/2024 7:45 AM CDT 07/10/2024 7:45 AM CDT Elvira Cooper MD LAB POCT ORDERABLES - DEV ICE Final Result Performing Organization Address [facility] de Phone Number [facility] Department [place] [address] * (ABNORMAL) aPTT (07/10/2024 6:43 AM CDT) aPTT 119(H) 28 - 38 sec Comment: Interpretive Data Heparin therapeutic range: 66.0 - 100.0 seconds. Range based on correlation with therapeutic heparin activity range of 0.3 - 0.7 Units/mL. Current interpretive data was last revised on 2023. Blood 07/10/2024 6:43 AM CDT 07/10/2024 7:21 AM CDT N[facility]ative [facility] - 07/10/2024 7:53 AM CDT STAT PTT timing: - Draw 6 hours after heparin infusion initiation - Draw 6 hours after every dose change until 2 consecutive PTTs are therapeutic - Once 2 consecutive PTTs are therapeutic, obtain with daily labs until infusion is discontinued - - Restart every 6 hour lab draws and follow instructions accordingly if PTT is outside of therapeutic range Do not draw lab from IV line that is actively infusing heparin. ??Use the opposite arm. ??If arm with actively infusing heparin must be used, pause the infusion for at least 2 minutes, and draw specimen below the IV site. ??For patients with a central venous catheter (CVC), lab must be drawn peripherally (not from CVC). us Elvira Cooper MD LAB BLOOD ORDERABLES Ayanna l Result Performing Organization Address [facility] Co de Phone Number [facility] [place] [address] * eGFR (07/09/2024 11:48 PM CDT) eGFR 61 >=60 mL/min/1. 73 m2 Comment: Interpretive Data Reference Interval Normal ?>/= 90 mL/min/1.73m2 Mildly decreased* ? 60 - 89 mL/min/1.73m2 Mildly to moderately decreased ?45 - 59 mL/min/1.73m2 Moderately to severely decreased ??30 - 44 mL/min/1.73m2 Severely decreased ?15 - 29 mL/min/1.73m2 Kidney Failure ?< 15 ??mL/min/1.73m2 *Relative to young adult level Estimated glomerular filtration rate is determined by the 2020 CKD-EPI equation recommended by the National Kidney Foundation (A Unifying Approach to GFR Estimation: Recommendations of the NKF-ASK Task Force on Reassessing the Inclusion of Race in Diagnosing Kidney Disease, JASN 202). The CKD-EPI equation should not be used for patients with unstable renal function and has not been validated in children and those over 70. Current interpretive data was last reviewed 2021. Blood 07/09/2024 11:4 8 PM CDT 07/10/2024 12:15 AM CDT us Elvira Cooper MD LAB BLOOD ORDERABLES Ayanna l Result Performing Organization Address [facility] Co de Phone Number [facility] Department [place] [address] * (ABNORMAL) aPTT (07/09/2024 11:48 PM CDT) [facility] aPTT 61(H) 28 - 38 sec Comment: Interpretive Data Heparin therapeutic range: 66.0 - 100.0 seconds. Range based on correlation with therapeutic heparin activity range of 0.3 - 0.7 Units/mL. Current interpretive data was last revised on 2023. Blood 07/09/2024 11:4 8 PM CDT 07/10/2024 12:15 AM CDT us Elvira Cooper MD LAB BLOOD ORDERABLES Ayanna vazquez Result [facility] Department [place] [address] * (ABNORMAL) CBC without differential (07/09/2024 11:48 PM CDT) [facility] WBC 7.6 3.8 - 9.9 K/cumm Hgb 10.8(L) 11.9 - 15.5 g/dL [facility] Hct 33.4(L) 35.6 - 45.5 % [facility] Plt 333 150 - 400 K/cumm [facility] MPV 9.8 9.1 - 12.3 fL [facility] RBC 3.30(L) 3.90 - 5.20 M/cumm [facility] MCV 101.2(H) 81.3 - 96.4 fL [facility] MCH 32.7 27.1 - 33.3 pg [facility] MCHC 32.3 32.3 - 35.7 g/dL [facility] RDW CV 14.2 11.1 - 14.9 % [facility] RDW SD 52.9(H) 35.7 - 48.1 fL [facility] NRBC abs 0.00 0.00 - 0.01 K/cumm [facility] Blood 07/09/2024 11:4 8 PM CDT 07/10/2024 12:15 AM CDT us Elvira Cooper MD LAB BLOOD ORDERABLES Ayanna vazquez Result [facility] Department [place] [address] * (ABNORMAL) Lipid panel (07/09/2024 11:48 PM CDT) Cholesterol 144 30 - 199 mg/dL Comment: Interpretive Data Ages < or = 19 years ??Acceptable: ? <170 mg/dL ??Borderline high: ??170-199 mg/dL ??High: ? >or= 200 mg/dL Ages > or = 20 years ??Desirable: ?<200 mg/dL ??Borderline high: ??200-239 mg/dL ??High: ? >or= 240 mg/dL Literature References: 1. Expert Panel on Integrated Guidelines for Cardiovascular Health and Risk Reduction in Children and Adolescents. Pediatrics 2011;128:S213 2. NCEP Expert Panel. Circulation 2004;110:227 Current Interpretive Data was last revised on 2018. Triglycerides 153(H) <=149 mg/dL [facility] ALEXANDER Comment: Interpretive Data Ages < or = 9 years ??Acceptable: ? <75 mg/dL ??Borderline high: ??75-99 mg/dL ??High: ? >or= 100 mg/dL Ages 10 to 20 years ??Acceptable: ? <90 mg/dL ??Borderline high: ??90-129 mg/dL ??High: ? >or= 130 mg/dL Ages > or = 20 years ??Desirable: ?<150 mg/dL ??Borderline high: ??150-199 mg/dL ??High: ? 200-499 mg/dL ?Very high: ?? >or= 499 mg/dL Literature References: 1. Expert Panel on Integrated Guidelines for Cardiovascular Health and Risk Reduction in Children and Adolescents. Pediatrics 2011;128:S213 2. NCEP Expert Panel. Circulation 2004;110:227 Current Interpretive Data was last revised on 2018. HDL 40 >=40 mg/dL [facility] Comment: Interpretive Data Ages < or = 19 years ??Acceptable: ? >45 mg/dL ??Borderline low: ?? 40-45 mg/dL ??Low: ? <40 mg/dL Ages > or = 20 years ??Desirable: ?>or= 60 mg/dL ??Low: ? <40 mg/dL Literature References: 1. Expert Panel on Integrated Guidelines for Cardiovascular Health and Risk Reduction in Children and Adolescents. Pediatrics 2011;128:S213 2. NCEP Expert Panel. Circulation 2004;110:227 Current Interpretive Data was last revised on 2018. LDL, calculated 77 <=129 mg/dL [facility] Comment: Interpretive Data Ages < or = 19 years ??Acceptable: ? <110 mg/dL ??Borderline high: ??110-129 mg/dL ??High: ?>or= 130 mg/dL Ages > or = 20 years ??Optimal: ? <100 mg/dL ??Near optimal: ?100-129 mg/dL ??Borderline high: ?? 130-159 mg/dL ??High: ?>160 mg/dL Calculated using the Lenin LDL-C estimating equation. This equation was implemented on 2024. Prior to this date LDL-C was estimated using the Friedewald equation. Literature References: 1. Expert Panel on Integrated Guidelines for Cardiovascular Health and Risk Reduction in Children and Adolescents. Pediatrics 2011;128:S213 2. NCEP Expert Panel. Circulation 2004;110:227 3. Lenin Urbina et al. CRISTINA Cardiol. 2020 February 07;5(5):540-548. doi: [email or web address] Current Interpretive Data was last revised on 2024. Non-HDL Cholesterol 104 mg/dL [facility] Comment: Interpretive Data Ages < or = 19 years ??Acceptable: ?<120 mg/dL ??Borderline high: ??120-144 mg/dL ??High: ?>145 mg/dL Ages > or = 20 years ??When triglycerides are >200 mg/dL, Non-HDL cholesterol is a secondary target of ? therapy with treatment goals that are 30 mg/dL greater than the LDL cholesterol target. ? Literature References: 1. Expert Panel on Integrated Guidelines for Cardiovascular Health and Risk Reduction in Children and Adolescents. Pediatrics 2011;128:S213 2. NCEP Expert Panel. Circulation 2004;110:227 Current Interpretive Data was last revised on 2018. Chol/HDL ratio 4 [facility] Blood 07/09/2024 11:4 8 PM CDT 07/10/2024 12:15 AM CDT us Elvira Cooper MD LAB BLOOD ORDERABLES Ayanna l Result [facility] Department [place] [address] * (ABNORMAL) Comprehensive metabolic panel (07/09/2024 11:48 PM CDT) Sodium 136 135 - 145 mmol/L Potassium, pl 3.5 3.3 - 4.9 mmol/L [facility] Chloride 99 97 - 110 mmol/L [facility] CO2 33(H) 22 - 32 mmol/L [facility] Anion gap 4 2 - 15 mmol/L [facility] BUN 16 6 - 25 mg/dL [facility] Creatinine 1.04 0.60 - 1.10 mg/dL [facility] Glucose 156 70 - 199 mg/dL [facility] Comment: Interpretive Data Fasting glucose >/= 126 mg/dl is diagnostic for diabetes. ?? Fasting is defined as no caloric intake for at least 8 hours. Fasting glucose between 100 mg/dl to 125 mg/dl is diagnostic of prediabetes. In a patient with classic symptoms of hyperglycemia or hyperglycemic crisis, a random glucose >/= 200 mg/dl is diagnostic for diabetes. In the absence of unequivocal hyperglycemia, results should be confirmed by repeat testing. The classification and Diagnosis of Diabetes Diabetes Care 2021; 46: S19-S40. Current interpretive data was last revised 2022. Calcium 9.1 8.5 - 10.3 mg/dL [facility] Bilirubin, total 0.4 0.1 - 1.2 mg/dL [facility] Protein, pl 7.2 6.5 - 8.5 g/dL [facility] Albumin 3.3(L) 3.5 - 5.0 g/dL [facility] Alk phos 162(H) 40 - 130 Units/L [facility] ALT 6(L) 7 - 45 Units/L [facility] AST 26 10 - 45 Units/L [facility] Blood 07/09/2024 11:4 8 PM CDT 07/10/2024 12:15 AM CDT Elvira Cooper MD LAB BLOOD ORDERABLES Ayanna l Result [facility] [place] [address] * POCT glucose (07/09/2024 10:46 PM CDT) Glucose, POC 197 70 - 199 mg/dL Blood 07/09/2024 10:4 6 PM CDT 07/09/2024 10:46 PM CDT Elvira Cooper MD LAB POCT ORDERABLES - DEV ICE Final Result [facility] [place] [address] * (ABNORMAL) POCT glucose (07/09/2024 8:33 PM CDT) Glucose, POC 291(H) 70 - 199 mg/dL Blood 07/09/2024 8:33 PM CDT 07/09/2024 8:33 PM CDT Elvira Cooper MD LAB POCT ORDERABLES - DEV ICE Final Result Performing Organization Address [facility] de Phone Number [facility] [place] [address] * (ABNORMAL) POCT glucose (07/09/2024 4:45 PM CDT) Glucose, POC 296(H) 70 - 199 mg/dL Blood 07/09/2024 4:45 PM CDT 07/09/2024 4:45 PM CDT Result [facility] Elvira Cooper MD LAB POCT ORDERABLES - DEV ICE Final Result Performing Organization Address [facility] de Phone Number [facility] [place] [address] * (ABNORMAL) aPTT (07/09/2024 4:27 PM CDT) aPTT 70(H) 28 - 38 sec Comment: Code Blue specimen - results called to Vinicius Post (RN) on 07/09/2024 17:05:59 CDT by KG. Interpretive Data Heparin therapeutic range: 66.0 - 100.0 seconds. Range based on correlation with therapeutic heparin activity range of 0.3 - 0.7 Units/mL. Current interpretive data was last revised on 2023. Blood 07/09/2024 4:27 PM CDT 07/09/2024 4:46 PM CDT Result [facility] Elvira Cooper MD LAB BLOOD ORDERABLES Ayanna l Result Performing Organization Address [facility] Co de Phone Number [facility] [place] [address] * POCT glucose (07/09/2024 11:36 AM CDT) Glucose, POC 195 70 - 199 mg/dL Blood 07/09/2024 11:3 6 AM CDT 07/09/2024 11:36 AM CDT Elvira Cooper MD LAB POCT ORDERABLES - DEV ICE Final Result Performing Organization Address City/[facility] Co de Phone Number [facility] [place] [address] * POCT glucose (07/09/2024 7:56 AM CDT) Glucose, POC 167 70 - 199 mg/dL Blood 07/09/2024 7:56 AM CDT 07/09/2024 7:56 AM CDT Elvira Cooper MD LAB POCT ORDERABLES - DEV ICE Final Result Performing Organization Address [facility] de Phone Number [facility] [place] [address] * Potassium, whole blood (07/09/2024 7:11 AM CDT) Pathologist [facility] [place] Potassium, bld 3.7 3.3 - 4.9 mmol/L Blood 07/09/2024 7:11 AM CDT 07/09/2024 7:43 AM CDT Elvira Cooper MD LAB BLOOD ORDERABLES Ayanna l Result Performing Organization Address [facility] Co de Phone Number [facility] [place] [address] * (ABNORMAL) aPTT (07/09/2024 4:59 AM CDT) aPTT 64(H) 28 - 38 sec Comment: Interpretive Data Heparin therapeutic range: 66.0 - 100.0 seconds. Range based on correlation with therapeutic heparin activity range of 0.3 - 0.7 Units/mL. Current interpretive data was last revised on 2023. Blood 07/09/2024 4:59 AM CDT 07/09/2024 5:43 AM CDT Narrative [facility] - 07/09/2024 6:09 AM CDT STAT PTT timing: - Draw 6 hours after heparin infusion initiation - Draw 6 hours after every dose change until 2 consecutive PTTs are therapeutic - Once 2 consecutive PTTs are therapeutic, obtain with daily labs until infusion is discontinued - - Restart every 6 hour lab draws and follow instructions accordingly if PTT is outside of therapeutic range Do not draw lab from IV line that is actively infusing heparin. ??Use the opposite arm. ??If arm with actively infusing heparin must be used, pause the infusion for at least 2 minutes, and draw specimen below the IV site. ??For patients with a central venous catheter (CVC), lab must be drawn peripherally (not from CVC). us Elvira Cooper MD LAB BLOOD ORDERABLES Ayanna vazquez Result [facility] Department [place] [address] * eGFR (07/08/2024 9:48 PM CDT) [facility] eGFR 73 >=60 mL/min/1. 73 m2 Comment: Interpretive Data Reference Interval Normal ?>/= 90 mL/min/1.73m2 Mildly decreased* ? 60 - 89 mL/min/1.73m2 Mildly to moderately decreased ?45 - 59 mL/min/1.73m2 Moderately to severely decreased ??30 - 44 mL/min/1.73m2 Severely decreased ?15 - 29 mL/min/1.73m2 Kidney Failure ?< 15 ??mL/min/1.73m2 *Relative to young adult level Estimated glomerular filtration rate is determined by the 2020 CKD-EPI equation recommended by the National Kidney Foundation (A Unifying Approach to GFR Estimation: Recommendations of the NKF-ASK Task Force on Reassessing the Inclusion of Race in Diagnosing Kidney Disease, JASN 2020). The CKD-EPI equation should not be used for patients with unstable renal function and has not been validated in children and those over 70. Current interpretive data was last reviewed 2021. Blood 07/08/2024 9:48 PM CDT 07/08/2024 10:18 PM CDT Elvira Cooper MD LAB BLOOD ORDERABLES Ayanna l Result Performing Organization Address [facility] Co de Phone Number [facility] [place] [address] * HIV 1/2 Antibody plus p24 Antigen Blood (07/08/2024 9:48 PM CDT) HIV 1/2 ab + p24 ag Nonreactive Nonreactive Comment:Nonreactive for HIV- 1 antigen and HIV-1/HIV-2 antibodies. No laboratory evidence of HIV infection. If acute HIV infection is suspected, consider testing for HIV-1 RNA. Current interpretive data was last revised on 22. Blood 07/08/2024 9:48 PM CDT 07/08/2024 10:18 PM CDT Elvira Cooper MD LAB MICROBIOLOGY - GENERA L ORDERABLES Final Result Performing Organization Address City/[facility] Co de Phone Number [facility] [place] [address] * (ABNORMAL) aPTT (07/08/2024 9:48 PM CDT) aPTT 63(H) 28 - 38 sec Comment: Interpretive Data Heparin therapeutic range: 66.0 - 100.0 seconds. Range based on correlation with therapeutic heparin activity range of 0.3 - 0.7 Units/mL. Current interpretive data was last revised on 2023. Blood 07/08/2024 9:48 PM CDT 07/08/2024 10:21 PM CDT Elvira Cooper MD LAB BLOOD ORDERABLES Ayanna l Result Performing Organization Address City/[facility]/ZIP Co de Phone Number [facility] Department [place] [address] * (ABNORMAL) CBC without differential (07/08/2024 9:48 PM CDT) [facility] WBC 6.1 3.8 - 9.9 K/cumm Hgb 10.8(L) 11.9 - 15.5 g/dL [facility] Hct 33.9(L) 35.6 - 45.5 % [facility] Plt 328 150 - 400 K/cumm [facility] MPV 10.4 9.1 - 12.3 fL [facility] RBC 3.40(L) 3.90 - 5.20 M/cumm [facility] MCV 99.7(H) 81.3 - 96.4 fL [facility] MCH 31.8 27.1 - 33.3 pg [facility] MCHC 31.9(L) 32.3 - 35.7 g/dL [facility] RDW CV 14.1 11.1 - 14.9 % [facility] RDW SD 51.6(H) 35.7 - 48.1 fL [facility] NRBC abs 0.00 0.00 - 0.01 K/cumm [facility] Blood 07/08/2024 9:48 PM CDT 07/08/2024 10:18 PM CDT Elvira Cooper MD LAB BLOOD ORDERABLES Ayanna l Result Performing Organization Address City/[facility]/ZIP Co de Phone Number [facility] Department [place] [address] * (ABNORMAL) Comprehensive metabolic panel (07/08/2024 9:48 PM CDT) Sodium 135 135 - 145 mmol/L Potassium, pl 4.4 3.3 - 4.9 mmol/L [facility] Comment:Hemolyzed; Potassium value may be falsely elevated by as much as 0.6-1.0 mmol/L. Suggest redraw and reanalysis. Chloride 100 97 - 110 mmol/L [facility] CO2 27 22 - 32 mmol/L [facility] Anion gap 8 2 - 15 mmol/L [facility] BUN 18 6 - 25 mg/dL [facility] Creatinine 0.89 0.60 - 1.10 mg/dL [facility] Glucose 186 70 - 199 mg/dL [facility] Comment: Interpretive Data Fasting glucose >/= 126 mg/dl is diagnostic for diabetes. ?? Fasting is defined as no caloric intake for at least 8 hours. Fasting glucose between 100 mg/dl to 125 mg/dl is diagnostic of prediabetes. In a patient with classic symptoms of hyperglycemia or hyperglycemic crisis, a random glucose >/= 200 mg/dl is diagnostic for diabetes. In the absence of unequivocal hyperglycemia, results should be confirmed by repeat testing. The classification and Diagnosis of Diabetes Diabetes Care 2021; 46: S19-S40. Current interpretive data was last revised 2022. Calcium 9.2 8.5 - 10.3 mg/dL [facility] Bilirubin, total 0.3 0.1 - 1.2 mg/dL [facility] Protein, pl 7.2 6.5 - 8.5 g/dL [facility] Albumin 3.1(L) 3.5 - 5.0 g/dL [facility] Alk phos 171(H) 40 - 130 Units/L [facility] ALT 11 7 - 45 Units/L [facility] AST 35 10 - 45 Units/L [facility] Comment:Hemolyzed; result ma y be falsely elevated Blood 07/08/2024 9:48 PM CDT 07/08/2024 10:18 PM CDT Elvira Cooper MD LAB BLOOD ORDERABLES Ayanna l Result Performing Organization Address City/[facility]/ZIP Co de Phone Number [facility] [place] [address] * POCT glucose (07/08/2024 8:16 PM CDT) Glucose, POC 190 70 - 199 mg/dL Blood 07/08/2024 8:16 PM CDT 07/08/2024 8:16 PM CDT Elvira Cooper MD LAB POCT ORDERABLES - DEV ICE Final Result Performing Organization Address [facility] Co de Phone Number [facility] [place] [address] * POCT glucose (07/08/2024 3:44 PM CDT) Glucose, POC 195 70 - 199 mg/dL Blood 07/08/2024 3:44 PM CDT 07/08/2024 3:44 PM CDT Elvira Cooper MD LAB POCT ORDERABLES - DEV ICE Final Result Performing Organization Address City/[facility] Co de Phone Number [facility] [place] [address] * Critical Result Callback Hematology (07/08/2024 12:54 PM CDT) Date Notified [id number] Time Notified 1431 OLAMIDE ALEXANDER TestName aPTT OLAMIDE ALEXANDER Called/Read Back Naa ALEXANDER Credentials RN OLAMIDE ALEXANDER Called By john MAURER Blood 07/08/2024 12:5 4 PM CDT 07/08/2024 1:17 PM CDT Elvira Cooper MD LAB BLOOD ORDERABLES Ayanna l Result Performing Organization Address [facility] Co de Phone Number [facility] [place] [place] [address] * (ABNORMAL) aPTT (07/08/2024 12:54 PM CDT) aPTT >150(C) 28 - 38 sec Comment: Repeated and verified. Interpretive Data Heparin therapeutic range: 66.0 - 100.0 seconds. Range based on correlation with therapeutic heparin activity range of 0.3 - 0.7 Units/mL. Current interpretive data was last revised on 2023. Blood 07/08/2024 12:5 4 PM CDT 07/08/2024 1:17 PM CDT Narrative [facility] - 07/08/2024 2:30 PM CDT STAT PTT timing: - Draw 6 hours after heparin infusion initiation - Draw 6 hours after every dose change until 2 consecutive PTTs are therapeutic - Once 2 consecutive PTTs are therapeutic, obtain with daily labs until infusion is discontinued - - Restart every 6 hour lab draws and follow instructions accordingly if PTT is outside of therapeutic range Do not draw lab from IV line that is actively infusing heparin. ??Use the opposite arm. ??If arm with actively infusing heparin must be used, pause the infusion for at least 2 minutes, and draw specimen below the IV site. ??For patients with a central venous catheter (CVC), lab must be drawn peripherally (not from CVC). Elvira Cooper MD LAB BLOOD ORDERABLES Ayanna l Result Performing Organization Address [facility]/ZIP Co de Phone Number OLAMIDE ALEXANDER [facility] [place] [address] * (ABNORMAL) POCT glucose (07/08/2024 11:03 AM CDT) Glucose, POC 271(H) 70 - 199 mg/dL Blood 07/08/2024 11:0 3 AM CDT 07/08/2024 11:03 AM CDT Elvira Cooper MD LAB POCT ORDERABLES - DEV ICE Final Result Performing Organization Address City/[facility] Co de Phone Number [facility] [place] [address] * POCT glucose (07/08/2024 7:40 AM CDT) Glucose, POC 170 70 - 199 mg/dL Blood 07/08/2024 7:40 AM CDT 07/08/2024 7:40 AM CDT Elvira Cooper MD LAB POCT ORDERABLES - DEV ICE Final Result Performing Organization Address [facility] de Phone Number [facility] [place] [address] * (ABNORMAL) aPTT (07/08/2024 4:53 AM CDT) Pathologist [facility] [place] aPTT 48(H) 28 - 38 sec Comment: Interpretive Data Heparin therapeutic range: 66.0 - 100.0 seconds. Range based on correlation with therapeutic heparin activity range of 0.3 - 0.7 Units/mL. Current interpretive data was last revised on 2023. Blood 07/08/2024 4:53 AM CDT 07/08/2024 5:27 AM CDT Narrative [facility] - 07/08/2024 5:38 AM CDT STAT PTT timing: - Draw 6 hours after heparin infusion initiation - Draw 6 hours after every dose change until 2 consecutive PTTs are therapeutic - Once 2 consecutive PTTs are therapeutic, obtain with daily labs until infusion is discontinued - - Restart every 6 hour lab draws and follow instructions accordingly if PTT is outside of therapeutic range Do not draw lab from IV line that is actively infusing heparin. ??Use the opposite arm. ??If arm with actively infusing heparin must be used, pause the infusion for at least 2 minutes, and draw specimen below the IV site. ??For patients with a central venous catheter (CVC), lab must be drawn peripherally (not from CVC). Elvira Cooper MD LAB BLOOD ORDERABLES Ayanna l Result Performing Organization Address [facility] de Phone Number [facility] Department [place] [address] * (ABNORMAL) Hemoglobin A1c (07/07/2024 1:34 AM CDT) [facility] Hgb A1C 7.7(H) 4.0 - 5.6 % Estimated Average Glucose 174 mg/dL [facility] Comment: The ADA recommends reporting an estimated Average Glucose (eAG) with all Hemoglobin A1c results using the equation derived from a study of 507 normal and diabetic adults. ??Minority populations were underrepresented and children were not included. ?? (Diabetes Care 2020; 43(S1): S66-S76). ??The eAG is not equivalent to a fasting glucose. Blood 07/07/2024 1:34 AM CDT 07/07/2024 2:30 AM CDT Elvira Cooper MD LAB BLOOD ORDERABLES Ayanna l Result Performing Organization Address [facility] de Phone Number [facility] Department [place] [address] * COLONOSCOPY REPORT (03/04/2017) Anatomical Region Laterality Modality Other Narrative 03/04/2017 Ordered by an unspecified provider. Historical Provider GI PROCEDURE ORDERABLES F inal Result * Hepatitis C genotype (03/01/2017 7:46 PM CDT) [facility] HCV genotype Undetected Undetected OLAMIDE Comment: Assay failed to detect HCV RNA. This assay is not intended for HCV RNA detection purposes. ADDITIONAL INFORMATION This test was performed using the [employer] HCV Genotype II assay ([employer] [place], [place]). Test Performed by: [facility] - [address] [address] Blood specimen (specimen) 03/01/2017 7:46 PM CDT 03/01/2017 7:52 PM CDT Thelma Malcolm MD LAB MICROBIOLOGY - [facility] ORDERABLES Final Result OLAMIDE [id number] [address] Department [place] [address] from Last 3 Months or Most Recently Relevant to Health Maintenance Insurance MEDICARE [facility] PLAN OF [place] [facility] Advance Directives For more information, please contact: [phone] * Full Code (Latest Code Status on File) Date Activated Date Inactivated Comments 07/07/2024 12:15 AM 08/02/2024 9:58 PM * Full Code Date Activated Date Inactivated Comments 06/11/2024 2:55 AM 06/21/2024 8:49 PM * Full Code Date Activated Date Inactivated Comments 05/29/2024 9:54 PM 06/09/2024 3:14 AM Care Teams E Commerce Director Relationship Specialty Start Date End Date Oswaldo Serrano MD [address] [address] PCP - General Family Medicine 04/14/18 [place] [address] [address] [facility] [address] [place] [address] Consulting Physician Cardiology 06/08/24 Sandro Hong MD [address] [place] [address] Referring Physician Cardiology 06/21/24
--- OUTSIDE RECORDS SUMMARY | 2024-10-07 00:49 | XMS_ITS | Referral Summary ---
Author Organization [facility] Address [address] [place] [address] Care Team Providers Care Airline Captain Name Role Phone Oswaldo Serrano MD Primary Care Provider [phone] Pastora Flores MD Unavailable Sandro Hong MD Unavailable Encounters Date Type Department Care Team Description 08/31/2024 SHOP/CHAP Subsequent Outreach [facility] [address] [place] [address] Naa Miller, GARDEN WORKER 08/22/2024 SHOP/CHAP Subsequent Outreach [facility] [address] [place] [address] Naa Miller, GARDEN WORKER 08/15/2024 SHOP/CHAP Subsequent Outreach [facility] [address] [place] [address] Naa Miller, GARDEN WORKER 08/09/2024 Telephone [facility] Cardiothoracic Surgery [facility]1 [facility] 8th Floor [address] Room 08[facility]5 [place] [address] Aleja Anguiano RMA 08/08/2024 SHOP/CHAP Initial Outreach [facility] [address] [place] [id number] Naa Miller LCSW 08/07/2024 Telephone [facility] 1 [place] [address] Ashley Travis, [facility] 08/06/2024 SHOP/CHAP Initial Outreach [facility] [address] [place] [address] Naa Miller, [facility] 08/06/2024 Telephone [facility] 1 [place] [address] Ashley Travis, [facility] 08/03/2024 SHOP/CHAP Initial Outreach [facility] [address] [place] [phone] Naa Miller, [facility] 08/03/2024 SHOP/CHAP Initial Eligibility Review [facility] [address] [place] [phone] Naa Miller, [facility] 08/02/2024 Telephone [facility] Cardiology [address] [place] [address] 8th [place] [address] [place] [address] Russ Pride MD 07/07/2024 12:12 AM CDT - 08/02/2024 5:52 PM CDT Hospital Encounter [address] [address] Elvira Cooper MD Hammond, Jennifer G., MD Rich, Michael W., MD Acute bacterial endocarditis (Primary Dx); Ventricular tachycardia (HCC); SOB (shortness of breath); Acute on chronic systolic congestive heart failure (CMS/HCC) (HCC) Discharge Disposition: Discharge to home, home health skilled care 07/27/2024 1:22 PM CDT Anesthesia Event [facility] [address] [place] [phone] Suzanne Hernandez MD Goez, Marie Christine, CRNA 07/25/2024 Orders Only [facility] Radiology 1 [place] [address] Hina Blanton RN 07/16/2024 Documentation [facility] Infectious Diseases [address] [place] [address] [address] [place] [address] Eric Magaña MD 07/13/2024 1:35 PM CDT Ancillary Procedure [facility] Operating Room 1 [place] [address] 07/13/2024 2:55 PM CDT Anesthesia Event [facility] Operating Room 1 [place] [address] Jolanta Abdi MD Jablonski, Melody A., NP 07/13/2024 3:00 PM CDT - 07/13/2024 5:40 PM CDT Surgery [facility] Operating Room 1 [place] [address] Connie Baig MD EXTRACTION LEAD AUTOMATIC IMPLANTABLE CARDIOVERTER DEFIBRILLATOR 07/10/2024 11:32 AM CDT Anesthesia Event [facility] 1 [place] [address] Robert Messer MD Gielow, Mathew Gregory, CRNA from Last 3 Months Allergies Active Allergy Reactions Criticality Noted Date [...] 1 tablet by mouth daily Active multivit qkiuawhv-wutu-W A-calcium (THERA-M) 9 mg iron-400 mcg tablet [...] Active pen needle, diabetic 32 gauge x 5/32 needle Use as directed 3 times a [...] Application total) topically daily 30 g 2 Active spironolactone (ALDACTONE) 25 mg tablet Take 0.5 tablets (12.5 mg total) by mouth daily 15 tablet 11 4 08/02/20 25 Active furosemide (LASIX) 40 mg tablet Take 1 tablet (40 mg total) by mouth daily 90 tablet 3 4 08/02/20 25 Active cyclobenzaprine (FLEXERIL) 5 mg tablet Take 1 tablet (5 mg total) by mouth 3 (three) times a day as needed for muscle spasms for up to 5 days 15 tablet Active metoprolol XL (TOPROL-XL) 100 mg 24 hr tablet Take 1 tablet (100 mg total) by mouth daily 90 tablet 4 11/01/19 Active insulin glargine 100 unit/mL (3 mL) pen for injection Inject 26 Units under the skin daily with breakfast 23.4 mL 1 4 01/30/20 25 Active insulin aspart (NovoLOG) 100 unit/mL (3 mL) pen for injection Inject 11 Units under the skin 3 (three) times a day before meals 29.7 mL 1 4 01/30/20 25 Active Active Problems Problem Noted Date Diagnosed Date Osteomyelitis 07/07/2024 Ventricular tachycardia 06/11/2024 Chronic diastolic congestive heart failure ([facility]) 06/11/2024 Endocarditis 06/11/2024 Urinary frequency 06/11/2024 Gastroesophageal reflux disease without esophagi tis 06/11/2024 Paroxysmal atrial fibrillation ([facility]) 024 Major depressive disorder 06/11/2024 CKD (chronic kidney disease) 06/11/2024 Traumatic hematoma of right upper arm 06/06/2024 Hypotension due to drugs 06/06/2024 SOB (shortness of breath) 05/30/2024 Acute on chronic systolic co ngestive heart failure ([facility]) 05/30/2024 Neck pain 05/30/2024 Hyponatremia 05/30/2024 Chronic a-fib ([facility]) 05/30/2024 Controlled type 2 diabetes m ellitus with chronic kidney disease, with long-term current use of insulin 05/30/2024 Hypothyroidism 05/30/2024 JSOE (obstructive sleep apnea) 05/30/2024 Diabetes mellitus with hyperglycemia 05/30/2024 Endocarditis 05/29/2024 Social History Tobacco Use Types Packs/Day Years Used Date Smoking Tobacco: Never Smokeless Tobacco: Never Tobacco Cessation:Counseling Given: No [facility] Utilities Answer Date Recorded In the [...] attend chur ch or alevism services? Never 08/08/2024 Do you belong to any clubs o r organizations such as baptism groups, unions, fraternal or athletic groups, or [...] any time in the past 12 m [facility], were you homeless or living in a penitentiary (including now)? No 08/08/2024 Personal Safety Answer Date Recorded Have you ever been in or are you currently in a harmful physical or emotional relationship or is someone making you feel afraid or unsafe? 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 Gender Identity Not on file Sexual Orientation [...] 07/07/2024 7:00 AM CDT Plan of Treatment Not on file Medical Devices Implanted Type Area Conference Manager Device Identifier Shelf Expiration Date Model / Serial / Lot Biotronik Iperia 7 Drt-05/20/2017 Implanted:08/2017 by Jasper Mcfarland MD (Quantity not on file) ICD Chest Wall Biotronik [id number] / [id number] / Biotronik Rv Lead [id number] Implanted:08/2017 (Quantity not on file) Lead Heart [id number] / [id number] / Biotronik Ra Lead [id number] Implanted: (Quantity not on file) Lead Heart Biotronik [id number] / [id number] / Unknown Wire (~5cm Long) Other - see comments Chest Stent Stent Heart Procedures Procedure Name Priority Date/Time Associated Diagnosis Comments POCT GLUCOSE DEVICE Routine 08/02/2024 5 :24 PM CDT POCT GLUCOSE DEVICE Routine 08/02/2024 11:49 AM CDT POCT GLUCOSE DEVICE Routine 08/02/2024 8 :33 AM CDT EGFR Routine 08/01/2024 8:56 PM [...] WO CONTRAST Routine 07/27/2024 2:24 PM CDT [place] AN PROCEDURE PLACEHOLDER Routine 07/27/2024 1:43 PM [...] AM CDT POCT GLUCOSE DEVICE Routine 07/21/2024 8:40 PM CDT POCT GLUCOSE DEVICE Routine 07/21/2024 [...] CHEMISTRIES, ARTERIAL Routine 07/13/2024 5:18 PM CDT [place] AN PROCEDURE PLACEHOLDER Routine 07/13/2024 5:15 PM [...] POCT ORDERABLES - DEVICE Final Result OLAMIDE [facility] [place] [address] * POCT glucose (08/02/2024 11:49 AM CDT) Glucose, POC 189 70 - 199 mg/dL Blood 08/02/2024 11:4 9 AM CDT 08/02/2024 11:49 AM CDT Russ Pride MD LAB POCT ORDERABLES - DEVICE Final Result Performing Organization Address [facility] Co de Phone Number [facility] [place] [address] * POCT glucose (08/02/2024 8:33 AM CDT) Glucose, POC 142 70 - 199 mg/dL Blood 08/02/2024 8:33 AM CDT 08/02/2024 8:33 AM CDT us Russ Pride MD LAB POCT ORDERABLES - DEVICE Final Result Performing Organization Address [facility] Phone Number [facility] [place] [address] * eGFR (08/01/2024 8:56 PM CDT) eGFR [...] MD LAB BLOOD ORDERABLES Ayanna l Result [facility] Department [place] [address] * (ABNORMAL) CBC without differential (08/01/2024 8:56 PM CDT) WBC 6.3 3.8 - 9.9 K/cumm Hgb 11.3(L) 11.9 - 15.5 g/dL [facility] Hct 34.4(L) 35.6 - 45.5 % [facility] Plt 228 150 - 400 K/cumm [facility] MPV 9.7 9.1 - 12.3 fL [facility] RBC 3.49(L) 3.90 - 5.20 M/cumm [facility] MCV 98.6(H) 81.3 - 96.4 fL [facility] MCH 32.4 27.1 - 33.3 pg [facility] MCHC 32.8 32.3 - 35.7 g/dL [facility] RDW CV 13.2 11.1 - 14.9 % [facility] RDW SD 47.4 35.7 - 48.1 fL [facility] NRBC abs 0.00 0.00 - 0.01 K/cumm [facility] Blood 08/01/2024 8:56 PM CDT 08/01/2024 9:50 PM CDT Elvira Cooper MD LAB BLOOD ORDERABLES Ayanna l Result Performing Organization Address City/[facility]/ZIP Co de Phone Number [facility] Department [place] [address] * Magnesium (08/01/2024 8:56 PM CDT) [facility] Magnesium 2.1 1.4 - 2.5 mg/dL Blood 08/01/2024 8:56 PM CDT 08/01/2024 9:48 PM CDT us Ynes Roman MD LAB BLOOD ORDERABLES Ayanna l Result Performing Organization Address [facility] Co de Phone Number [facility] Department [place] [address] * (ABNORMAL) Comprehensive metabolic panel (08/01/2024 8:56 PM CDT) [facility] Sodium 136 135 - 145 mmol/L Potassium, pl 3.8 3.3 - 4.9 mmol/L [facility] Chloride 99 97 - 110 mmol/L [facility] CO2 28 22 - 32 mmol/L [facility] Anion gap 9 2 - 15 mmol/L [facility] BUN 20 6 - 25 mg/dL [facility] Creatinine 0.93 0.60 - 1.10 mg/dL [facility] Glucose 191 70 - 199 mg/dL [facility] Comment: Interpretive Data Fasting glucose >/= 126 [...] 2022. Calcium 9.3 8.5 - 10.3 mg/dL [facility] Bilirubin, total 0.2 0.1 - 1.2 mg/dL [facility] Protein, pl 7.0 6.5 - 8.5 g/dL [facility] Albumin 3.2(L) 3.5 - 5.0 g/dL [facility] Alk phos 151(H) 40 - 130 Units/L [facility] ALT 18 7 - 45 Units/L [facility] AST 31 10 - 45 Units/L [facility] Blood 08/01/2024 8:56 PM CDT 08/01/2024 9:48 PM CDT us Elvira Cooper MD LAB BLOOD ORDERABLES Ayanna l Result [facility] [place] [address] * POCT glucose (08/01/2024 8:55 PM CDT) Glucose, POC 192 70 - 199 mg/dL Blood 08/01/2024 8:55 PM CDT 08/01/2024 8:55 PM CDT Russ Pride MD LAB POCT ORDERABLES - DEVICE Final Result Performing Organization Address City/[facility]/ZIP Co de Phone Number [facility] [place] [address] * (ABNORMAL) POCT glucose (08/01/2024 4:48 PM CDT) Glucose, POC 231(H) 70 - 199 mg/dL Blood 08/01/2024 4:48 PM CDT 08/01/2024 4:48 PM CDT Russ Pride MD LAB POCT ORDERABLES - DEVICE Final Result Performing Organization Address City/[facility]/ZIP Co de Phone Number [facility] [place] [address] * POCT glucose (08/01/2024 2:44 PM CDT) Glucose, POC 91 70 - 199 mg/dL Blood 08/01/2024 2:44 PM CDT 08/01/2024 2:44 PM CDT Russ Pride MD LAB POCT ORDERABLES - DEVICE Final Result Performing Organization Address [facility] Co de Phone Number [facility] [place] [address] * (ABNORMAL) POCT glucose (08/01/2024 11:41 AM CDT) Glucose, POC 232(H) 70 - 199 mg/dL Blood 08/01/2024 11:4 1 AM CDT 08/01/2024 11:41 AM CDT Russ Pride MD LAB POCT ORDERABLES - DEVICE Final Result Performing Organization Address [facility] de Phone Number [facility] [place] [address] * POCT glucose (08/01/2024 8:02 AM CDT) Glucose, POC 199 70 - 199 mg/dL Blood 08/01/2024 8:02 AM CDT 08/01/2024 8:02 AM CDT Russ Pride MD LAB POCT ORDERABLES - DEVICE Final Result Performing Organization Address [facility] Co de Phone Number [facility] [place] [address] * Potassium, whole blood (08/01/2024 5:22 AM CDT) Potassium, bld 4.2 3.3 - 4.9 mmol/L Blood 08/01/2024 5:22 AM CDT 08/01/2024 5:48 AM CDT us Russ Pride MD LAB BLOOD ORDERABLES Final Re sult Performing Organization Address [facility] Co de Phone Number OLAMIDE ALEXANDER [facility] Department [place] [address] * eGFR (07/31/2024 10:13 PM CDT) eGFR [...] ORDERABLES Ayanna l Result Performing Organization Address [facility] Co de Phone Number OLAMIDE ALEXANDER [facility] Department [place] [address] * (ABNORMAL) CBC without differential (07/31/2024 10:13 PM CDT) [facility] WBC 6.3 3.8 - 9.9 K/cumm Hgb 11.6(L) 11.9 - 15.5 g/dL [facility] Hct 35.7 35.6 - 45.5 % [facility] Plt 266 150 - 400 K/cumm [facility] MPV 9.6 9.1 - 12.3 fL [facility] RBC 3.67(L) 3.90 - 5.20 M/cumm [facility] MCV 97.3(H) 81.3 - 96.4 fL [facility] MCH 31.6 27.1 - 33.3 pg [facility] MCHC 32.5 32.3 - 35.7 g/dL [facility] RDW CV 13.2 11.1 - 14.9 % [facility] RDW SD 47.4 35.7 - 48.1 fL [facility] NRBC abs 0.00 0.00 - 0.01 K/cumm [facility] Blood 07/31/2024 10:1 3 PM CDT 07/31/2024 10:52 PM CDT Elvira Cooper MD LAB BLOOD ORDERABLES Ayanna l Result Performing Organization Address [facility] Co de Phone Number [facility] Department [place] [address] * Magnesium (07/31/2024 10:13 PM CDT) [facility] Magnesium 1.9 1.4 - 2.5 mg/dL Blood 07/31/2024 10:1 3 PM CDT 07/31/2024 10:52 PM CDT us Ynes Roman MD LAB BLOOD ORDERABLES Ayanna l Result Performing Organization Address City/[facility]/ZIP Co de Phone Number [facility] Department [place] [address] * (ABNORMAL) Comprehensive metabolic panel (07/31/2024 10:13 PM CDT) Sodium 138 135 - 145 mmol/L Potassium, pl 4.2 3.3 - 4.9 mmol/L [facility] Comment:Hemolyzed; Potassium value may be falsely elevated by as much as 0.3-0.5 mmol/L. Suggest redraw and reanalysis. Chloride 100 97 - 110 mmol/L [facility] CO2 28 22 - 32 mmol/L [facility] Anion gap 10 2 - 15 mmol/L [facility] BUN 27(H) 6 - 25 mg/dL [facility] Creatinine 1.04 0.60 - 1.10 mg/dL [facility] Glucose 216(H) 70 - 199 mg/dL [facility] Comment: Interpretive Data Fasting glucose >/= 126 [...] Calcium 9.6 8.5 - 10.3 mg/dL [facility] Bilirubin, total 0.2 0.1 - 1.2 mg/dL [facility] Protein, pl 7.2 6.5 - 8.5 g/dL [facility] Albumin 3.4(L) 3.5 - 5.0 g/dL [facility] Alk phos 161(H) 40 - 130 Units/L [facility] ALT 18 7 - 45 Units/L [facility] AST 26 10 - 45 Units/L [facility] Comment:Hemolyzed; result ma y be falsely elevated Blood 07/31/2024 10:1 3 PM CDT 07/31/2024 10:52 PM CDT Elvira Cooper MD LAB BLOOD ORDERABLES Ayanna l Result Performing Organization Address [facility] Co de Phone Number [facility] [place] [address] * POCT glucose (07/31/2024 5:23 PM CDT) Glucose, POC 153 70 - 199 mg/dL Blood 07/31/2024 5:23 PM CDT 07/31/2024 5:23 PM CDT us Russ Pride MD LAB POCT ORDERABLES - DEVICE Final Result Performing Organization Address [facility] de Phone Number [facility] [place] [address] * (ABNORMAL) POCT glucose (07/31/2024 11:34 AM CDT) Glucose, POC 316(H) 70 - 199 mg/dL Blood 07/31/2024 11:3 4 AM CDT 07/31/2024 11:34 AM CDT us Russ Pride MD LAB POCT ORDERABLES - DEVICE Final Result Performing Organization Address [facility] de Phone Number [facility] [place] [address] * (ABNORMAL) POCT glucose (07/31/2024 8:14 AM CDT) Glucose, POC 211(H) 70 - 199 mg/dL Blood 07/31/2024 8:14 AM CDT 07/31/2024 8:14 AM CDT Russ Pride MD LAB POCT ORDERABLES - DEVICE Final Result Performing Organization Address City/[facility] Co de Phone Number [facility] [place] [address] * CP-CRE culture, surveillance Rectal swab (07/31/2024 5:59 AM CDT) Report Final Report: Negative Rectal swab 07/31/2024 5:59 AM CDT 07/31/2024 6:25 AM CDT Narrative OLAMIDE MAURER - 08/01/2024 12:24 PM CDT Interpretive Data The screening agar used for the detection of carbapenemase-producing Enterobacterales (CP-CRE) has not been approved by the Food and Drug Administration. The performance characteristics of this medium have been evaluated and verified by the [facility]. This media demonstrates highest sensitivity for KPC and NDM-1 producing isolates. This screening assay is exclusively intended for infection control and surveillance, not for patient diagnosis or treatment purposes. Current interpretive data was last revised on 2023. us Azeem Urias MD LAB MICROBIOLOGY - GENERAL OR DERABLES Final Result OLAMIDE ALEXANDER [facility] Department [place] [address] * (ABNORMAL) eGFR (07/31/2024 2:28 AM CDT) [...] MD LAB BLOOD ORDERABLES Ayanna vazquez Result [facility] Department [place] [address] * (ABNORMAL) CBC without differential (07/31/2024 2:28 AM CDT) Pathologist [facility] WBC 6.0 3.8 - 9.9 K/cumm Hgb 11.3(L) 11.9 - 15.5 g/dL [facility] Hct 34.4(L) 35.6 - 45.5 % [facility] Plt 240 150 - 400 K/cumm [facility] MPV 9.3 9.1 - 12.3 fL [facility] RBC 3.53(L) 3.90 - 5.20 M/cumm [facility] MCV 97.5(H) 81.3 - 96.4 fL [facility] MCH 32.0 27.1 - 33.3 pg [facility] MCHC 32.8 32.3 - 35.7 g/dL [facility] RDW CV 13.1 11.1 - 14.9 % [facility] RDW SD 46.6 35.7 - 48.1 fL [facility] NRBC abs 0.00 0.00 - 0.01 K/cumm [facility] Blood 07/31/2024 2:28 AM CDT 07/31/2024 3:35 AM CDT Elvira Cooper MD LAB BLOOD ORDERABLES Ayanna l Result Performing Organization Address City/[facility]/ZIP Co de Phone Number [facility] Department [place] [address] * Magnesium (07/31/2024 2:28 AM CDT) Pathologist [facility] Magnesium 2.0 1.4 - 2.5 mg/dL Blood 07/31/2024 2:28 AM CDT 07/31/2024 3:35 AM CDT Ynes Roman MD LAB BLOOD ORDERABLES Ayanna l Result Performing Organization Address [facility] Co de Phone Number [facility] [place] [address] * (ABNORMAL) Comprehensive metabolic panel (07/31/2024 2:28 AM CDT) [facility] Sodium 139 135 - 145 mmol/L Potassium, pl 4.6 3.3 - 4.9 mmol/L [facility] Chloride 100 97 - 110 mmol/L [facility] CO2 28 22 - 32 mmol/L [facility] Anion gap 11 2 - 15 mmol/L [facility] BUN 22 6 - 25 mg/dL [facility] Creatinine 1.09 0.60 - 1.10 mg/dL [facility] Glucose 227(H) 70 - 199 mg/dL [facility] Comment: Interpretive Data Fasting glucose >/= 126 [...] 2022. Calcium 9.4 8.5 - 10.3 mg/dL [facility] Bilirubin, total 0.2 0.1 - 1.2 mg/dL [facility] Protein, pl 6.8 6.5 - 8.5 g/dL [facility] Albumin 3.3(L) 3.5 - 5.0 g/dL [facility] Alk phos 141(H) 40 - 130 Units/L [facility] ALT 8 7 - 45 Units/L [facility] AST 29 10 - 45 Units/L [facility] Blood 07/31/2024 2:28 AM CDT 07/31/2024 3:35 AM CDT Elvira Cooper MD LAB BLOOD ORDERABLES Ayanna l Result Performing Organization Address City/[facility]/ZIP Co de Phone Number [facility] Department [place] [address] * POCT glucose (07/30/2024 11:43 PM CDT) Glucose, POC 195 70 - 199 mg/dL Blood 07/30/2024 11:4 3 PM CDT 07/30/2024 11:43 PM CDT Russ Pride MD LAB POCT ORDERABLES - DEVICE Final Result Performing Organization Address City/[facility]/ZIP Co de Phone Number [facility] Department [place] [address] * POCT glucose (07/30/2024 7:51 PM CDT) Glucose, POC 78 70 - 199 mg/dL Blood 07/30/2024 7:51 PM CDT 07/30/2024 7:51 PM CDT Russ Pride MD LAB POCT ORDERABLES - DEVICE Final Result Performing Organization Address [facility] Co de Phone Number [facility] [place] [address] * (ABNORMAL) POCT glucose (07/30/2024 5:06 PM CDT) Glucose, POC 248(H) 70 - 199 mg/dL Blood 07/30/2024 5:06 PM CDT 07/30/2024 5:06 PM CDT Russ Pride MD LAB POCT ORDERABLES - [place] [address] * (ABNORMAL) POCT glucose (07/30/2024 11:25 AM CDT) Glucose, POC 210(H) 70 - 199 mg/dL Blood 07/30/2024 11:2 5 AM CDT 07/30/2024 11:25 AM CDT Russ Pride MD LAB POCT ORDERABLES - DEVICE Final Result [facility] [place] [address] * POCT glucose (07/30/2024 8:25 AM CDT) Glucose, POC 154 70 - 199 mg/dL Blood 07/30/2024 8:25 AM CDT 07/30/2024 8:25 AM CDT Russ Pride MD LAB POCT ORDERABLES - [place]ICE [place] [address] * eGFR (07/29/2024 10:10 PM CDT) eGFR [...] MD LAB BLOOD ORDERABLES Ayanna vazquez Result [facility] [place] [address] * Differential, auto (07/29/2024 10:10 PM CDT) Neutrophil abs 4.2 1.5 - 6.5 K/cumm Imm gran abs 0.0 0.0 - 0.1 K/cumm [facility] Lymphocyte abs 1.5 0.8 - 3.3 K/cumm [facility] Monocyte abs 0.4 0.2 - 0.8 K/cumm [facility] Eosinophil abs 0.2 0.0 - 0.5 K/cumm [facility] Basophil abs 0.1 0.0 - 0.1 K/cumm [facility] Neutrophil pct 65.4 % [facility] Comment: Interpretive Data Percent cell count reference ranges are not reported, since discordance with absolute values may lead to misinterpretation of CBC data. Current Interpretive Data was last revised on 2018. Imm gran pct 0.3 % [facility] Comment: Interpretive Data Percent cell count reference ranges are not reported, since discordance with absolute values may lead to misinterpretation of CBC data. Current Interpretive Data was last revised on 2018. Lymphocyte pct 23.8 % [facility] Comment: Interpretive Data Percent cell count reference ranges are not reported, since discordance with absolute values may lead to misinterpretation of CBC data. Current Interpretive Data was last revised on 2018. Monocyte pct 6.1 % [facility] Comment: Interpretive Data Percent cell count reference ranges are not reported, since discordance with absolute values may lead to misinterpretation of CBC data. Current Interpretive Data was last revised on 2018. Eosinophil pct 3.0 % [facility] Comment: Interpretive Data Percent cell count reference ranges are not reported, since discordance with absolute values may lead to misinterpretation of CBC data. Current Interpretive Data was last revised on 2018. Basophil pct 1.4 % [facility] Comment: Interpretive Data Percent cell count reference ranges are not reported, since discordance with absolute values may lead to misinterpretation of CBC data. Current Interpretive Data was last revised on 2018. Blood 07/29/2024 10:1 0 PM CDT 07/29/2024 11:00 PM CDT us Russ Pride MD LAB BLOOD ORDERABLES Final Re sult [facility] Department [place] [address] * (ABNORMAL) CBC without differential (07/29/2024 10:10 PM CDT) WBC 6.3 3.8 - 9.9 K/cumm Hgb 12.4 11.9 - 15.5 g/dL [facility] Hct 36.6 35.6 - 45.5 % [facility] Plt 301 150 - 400 K/cumm [facility] MPV 9.5 9.1 - 12.3 fL [facility] RBC 3.78(L) 3.90 - 5.20 M/cumm [facility] MCV 96.8(H) 81.3 - 96.4 fL [facility] MCH 32.8 27.1 - 33.3 pg [facility] MCHC 33.9 32.3 - 35.7 g/dL [facility] RDW CV 13.1 11.1 - 14.9 % [facility] RDW SD 46.3 35.7 - 48.1 fL [facility] NRBC abs 0.00 0.00 - 0.01 K/cumm [facility] Blood 07/29/2024 10:1 0 PM CDT 07/29/2024 10:48 PM CDT Elvira Cooper MD LAB BLOOD ORDERABLES Ayanna l Result Performing Organization Address City/[facility]/ZIP Co de Phone Number [facility] [employer] [place] [address] * Magnesium (07/29/2024 10:10 PM CDT) [facility] Magnesium 1.8 1.4 - 2.5 mg/dL Blood 07/29/2024 10:1 0 PM CDT 07/29/2024 10:49 PM CDT Ynes Roman MD LAB BLOOD ORDERABLES Ayanna l Result [facility] [place] [address] * (ABNORMAL) Comprehensive metabolic panel (07/29/2024 10:10 PM CDT) Pathologist [facility] Sodium 137 135 - 145 mmol/L Potassium, pl 4.5 3.3 - 4.9 mmol/L [facility] Chloride 100 97 - 110 mmol/L [facility] CO2 27 22 - 32 mmol/L [facility] Anion gap 10 2 - 15 mmol/L [facility] BUN 19 6 - 25 mg/dL [facility] Creatinine 1.01 0.60 - 1.10 mg/dL [facility] Glucose 273(H) 70 - 199 mg/dL [facility] Comment: Interpretive Data Fasting glucose >/= 126 [...] 2022. Calcium 9.4 8.5 - 10.3 mg/dL [facility] Bilirubin, total 0.2 0.1 - 1.2 mg/dL [facility] Protein, pl 7.5 6.5 - 8.5 g/dL [facility] Albumin 3.8 3.5 - 5.0 g/dL [facility] Alk phos 157(H) 40 - 130 Units/L [facility] ALT 7 7 - 45 Units/L [facility] AST 25 10 - 45 Units/L [facility] Blood 07/29/2024 10:1 0 PM CDT 07/29/2024 10:49 PM CDT us Elvira Cooper MD LAB BLOOD ORDERABLES Ayanna vazquez Result [facility] Department [place] [address] * (ABNORMAL) POCT glucose (07/29/2024 9:30 PM CDT) Glucose, POC 262(H) 70 - 199 mg/dL Blood 07/29/2024 9:30 PM CDT 07/29/2024 9:30 PM CDT Russ Pride MD LAB POCT ORDERABLES - DEVICE Final Result Performing Organization Address [facility] de Phone Number [facility] [place] [address] * POCT glucose (07/29/2024 5:11 PM CDT) Glucose, POC 153 70 - 199 mg/dL Blood 07/29/2024 5:11 PM CDT 07/29/2024 5:11 PM CDT Russ Pride MD LAB POCT ORDERABLES - DEVICE Final Result Performing Organization Address [facility] de Phone Number [facility] [place] [address] * (ABNORMAL) POCT glucose (07/29/2024 11:30 AM CDT) Glucose, POC 268(H) 70 - 199 mg/dL Comment:Glu2: RN/ Notified Glucose comment 1 Glu2: RN/ Notified [facility] Blood 07/29/2024 11:3 0 AM CDT 07/29/2024 11:30 AM CDT Russ Pride MD LAB POCT ORDERABLES - DEVICE Final Result Performing Organization Address [facility] de Phone Number [facility] [place] [address] * (ABNORMAL) POCT glucose (07/29/2024 8:37 AM CDT) Glucose, POC 280(H) 70 - 199 mg/dL Comment:Glu2: RN/ Notified Glucose comment 1 Glu2: RN/MD Notified [facility] Blood 07/29/2024 8:37 AM CDT 07/29/2024 8:37 AM CDT Russ Pride MD LAB POCT ORDERABLES - DEVICE Final Result Performing Organization Address [facility] de Phone Number [facility] Department [place] [address] * (ABNORMAL) POCT glucose (07/29/2024 3:08 AM CDT) Glucose, POC 285(H) 70 - 199 mg/dL Blood 07/29/2024 3:08 AM CDT 07/29/2024 3:08 AM CDT Russ Pride MD LAB POCT ORDERABLES - DEVICE Final Result Performing Organization Address [facility] de Phone Number [facility] [place] [address] * eGFR (07/29/2024 3:02 AM CDT) Pathologist [facility] Department eGFR 83 >=60 mL/min/1. 73 m2 Comment: [...] MD LAB BLOOD ORDERABLES Ayanna vazquez Result [facility] Department [place] [address] * (ABNORMAL) CBC without differential (07/29/2024 3:02 AM CDT) WBC 7.0 3.8 - 9.9 K/cumm Hgb 11.5(L) 11.9 - 15.5 g/dL [facility] Hct 35.6 35.6 - 45.5 % [facility] Plt 282 150 - 400 K/cumm [facility] MPV 9.6 9.1 - 12.3 fL [facility] RBC 3.63(L) 3.90 - 5.20 M/cumm [facility] MCV 98.1(H) 81.3 - 96.4 fL [facility] MCH 31.7 27.1 - 33.3 pg [facility] MCHC 32.3 32.3 - 35.7 g/dL [facility] RDW CV 13.0 11.1 - 14.9 % [facility] RDW SD 46.3 35.7 - 48.1 fL [facility] NRBC abs 0.00 0.00 - 0.01 K/cumm [facility] Blood 07/29/2024 3:02 AM CDT 07/29/2024 3:34 AM CDT us Elvira Cooper MD LAB BLOOD ORDERABLES Ayanna l Result [facility] Department [place] [address] * Magnesium (07/29/2024 3:02 AM CDT) [facility] Magnesium 1.8 1.4 - 2.5 mg/dL Blood 07/29/2024 3:02 AM CDT 07/29/2024 3:33 AM CDT Ynes Roman MD LAB BLOOD ORDERABLES Ayanna l Result Performing Organization Address [facility] Co de Phone Number [facility] Department [place] [address] * (ABNORMAL) Comprehensive metabolic panel (07/29/2024 3:02 AM CDT) [facility] Sodium 136 135 - 145 mmol/L Potassium, pl 4.4 3.3 - 4.9 mmol/L [facility] Chloride 99 97 - 110 mmol/L [facility] CO2 27 22 - 32 mmol/L [facility] Anion gap 10 2 - 15 mmol/L [facility] BUN 26(H) 6 - 25 mg/dL [facility] Creatinine 0.80 0.60 - 1.10 mg/dL [facility] Glucose 254(H) 70 - 199 mg/dL [facility] Comment: Interpretive Data Fasting glucose >/= 126 [...] 2022. Calcium 9.7 8.5 - 10.3 mg/dL [facility] Bilirubin, total 0.2 0.1 - 1.2 mg/dL [facility] Protein, pl 7.1 6.5 - 8.5 g/dL [facility] Albumin 3.3(L) 3.5 - 5.0 g/dL [facility] Alk phos 161(H) 40 - 130 Units/L [facility] ALT 11 7 - 45 Units/L [facility] AST 24 10 - 45 Units/L [facility] Blood 07/29/2024 3:02 AM CDT 07/29/2024 3:33 AM CDT us Elvira Cooper MD LAB BLOOD ORDERABLES Ayanna l Result Performing Organization Address City/[facility] Co de Phone Number [facility] [place] [address] * (ABNORMAL) POCT glucose (07/28/2024 9:05 PM CDT) Glucose, POC 304(H) 70 - 199 mg/dL Blood 07/28/2024 9:05 PM CDT 07/28/2024 9:05 PM CDT us Russ Pride MD LAB POCT ORDERABLES - DEVICE Final Result Performing Organization Address [facility] Co de Phone Number [facility] Department [place] [address] * (ABNORMAL) POCT glucose (07/28/2024 6:00 PM CDT) Glucose, POC 236(H) 70 - 199 mg/dL Blood 07/28/2024 6:00 PM CDT 07/28/2024 6:00 PM CDT Russ Pride MD LAB POCT ORDERABLES - DEVICE Final Result Performing Organization Address City/[facility] Co de Phone Number [facility] Department [place] [address] * POCT glucose (07/28/2024 12:20 PM CDT) Glucose, POC 193 70 - 199 mg/dL Blood 07/28/2024 12:2 0 PM CDT 07/28/2024 12:20 PM CDT Russ Pride MD LAB POCT ORDERABLES - DEVICE Final Result Performing Organization Address [facility] [place] [address] * POCT glucose (07/28/2024 8:30 AM CDT) Glucose, POC 197 70 - 199 mg/dL Blood 07/28/2024 8:30 AM CDT 07/28/2024 8:30 AM CDT uRss Pride MD LAB POCT ORDERABLES - DEVICE Final Result Performing Organization Address [facility] [place] [address] * eGFR (07/28/2024 5:08 AM CDT) eGFR [...] MD LAB BLOOD ORDERABLES Ayanna vazquez Result [facility] Department [place] [address] * (ABNORMAL) CBC without differential (07/28/2024 5:08 AM CDT) WBC 6.3 3.8 - 9.9 K/cumm Hgb 11.5(L) 11.9 - 15.5 g/dL [facility] Hct 34.7(L) 35.6 - 45.5 % [facility] Plt 264 150 - 400 K/cumm [facility] MPV 9.6 9.1 - 12.3 fL [facility] RBC 3.51(L) 3.90 - 5.20 M/cumm [facility] MCV 98.9(H) 81.3 - 96.4 fL [facility] MCH 32.8 27.1 - 33.3 pg [facility] MCHC 33.1 32.3 - 35.7 g/dL [facility] RDW CV 13.0 11.1 - 14.9 % [facility] RDW SD 46.8 35.7 - 48.1 fL [facility] NRBC abs 0.00 0.00 - 0.01 K/cumm [facility] Blood 07/28/2024 5:08 AM CDT 07/28/2024 5:55 AM CDT Elvira Cooper MD LAB BLOOD ORDERABLES Ayanna l Result Performing Organization Address City/[facility] Co de Phone Number [facility] Department [place] [address] * Magnesium (07/28/2024 5:08 AM CDT) Pathologist [facility] Magnesium 1.9 1.4 - 2.5 mg/dL Blood 07/28/2024 5:08 AM CDT 07/28/2024 5:56 AM CDT Ynes Roman MD LAB BLOOD ORDERABLES Ayanna l Result Performing Organization Address [facility] de Phone Number [facility] Department [place] [address] * (ABNORMAL) Comprehensive metabolic panel (07/28/2024 5:08 AM CDT) [facility] Sodium 138 135 - 145 mmol/L Potassium, pl 4.8 3.3 - 4.9 mmol/L [facility] Comment:Hemolyzed; Potassium value may be falsely elevated by as much as 0.3-0.5 mmol/L. Suggest redraw and reanalysis. Chloride 101 97 - 110 mmol/L [facility] CO2 29 22 - 32 mmol/L [facility] Anion gap 8 2 - 15 mmol/L [facility] BUN 23 6 - 25 mg/dL [facility] Creatinine 0.85 0.60 - 1.10 mg/dL [facility] Glucose 173 70 - 199 mg/dL [facility] Comment: Interpretive Data Fasting glucose >/= 126 [...] Calcium 9.3 8.5 - 10.3 mg/dL [facility] Bilirubin, total 0.3 0.1 - 1.2 mg/dL [facility] Protein, pl 7.1 6.5 - 8.5 g/dL [facility] Albumin 3.2(L) 3.5 - 5.0 g/dL [facility] Alk phos 137(H) 40 - 130 Units/L [facility] ALT 7 7 - 45 Units/L [facility] AST 26 10 - 45 Units/L [facility] Comment:Hemolyzed; result ma y be falsely elevated Blood 07/28/2024 5:08 AM CDT 07/28/2024 5:56 AM CDT us Elvira Cooper MD LAB BLOOD ORDERABLES Ayanna l Result [facility] [place] [address] * POCT glucose (07/27/2024 8:55 PM CDT) Glucose, POC 139 70 - 199 mg/dL Blood 07/27/2024 8:55 PM CDT 07/27/2024 8:55 PM CDT us Russ Pride MD LAB POCT ORDERABLES - DEVICE Final Result [facility] [place] [address] * POCT glucose (07/27/2024 5:11 PM CDT) Glucose, POC 147 70 - 199 mg/dL Blood 07/27/2024 5:11 PM CDT 07/27/2024 5:11 PM CDT Russ Pride MD LAB POCT ORDERABLES - DEVICE Final Result Performing Organization Address [facility] Co de Phone Number [facility] [place] [address] * POCT glucose (07/27/2024 3:57 PM CDT) Glucose, POC 186 70 - 199 mg/dL Blood 07/27/2024 3:57 PM CDT 07/27/2024 3:57 PM CDT Russ Pride MD LAB POCT ORDERABLES - DEVICE Final Result Performing Organization Address [facility] de Phone Number [facility] [place] [address] * POCT glucose (07/27/2024 2:45 PM CDT) Glucose, POC 175 70 - 199 mg/dL Blood 07/27/2024 2:45 PM CDT 07/27/2024 2:45 PM CDT Russ Pride MD LAB POCT ORDERABLES - DEVICE Final Result Performing Organization Address [facility] de Phone Number [facility] [place] [address] * TRANSESOPHAGEAL ECHO (CHANCE) W DOPPLER/CF WO CONTRAST (07/27/2024 2:24 PM CDT) Anatomical Region Laterality Modality Echocardiography 07/27/2024 11:1 5 AM CDT Narrative 07/27/2024 4:25 PM CDT Patient name: Loretta Penn Date of test: 07/27/2024 Date of : 1960 (F) Hospital #: 0 ?Location: [facility] Cardiac Diagnostic Lab Interpreted by: Hernan Phelps MD Fpga Engineer: Russel Workman MD RN: Reason for Test: [...] 2=Hypo 3=Akinetic 4=Dyskin. 5=Aneurysm 0=Not visualized) Short Stanton-Gastric:=2 S=2 I=2 P=2 L=2 A=2 Long Stanton-Gastric:BP=2 BA=2 MP=2 MA=2 AP=2 AA=2 Chamber Dimensions: RA: mildly increased LA: markedly increased RV: mildly dilated LV: moderately dilated LV function: Severe global left ventricular dysfunction. RV function: see Summary Pericardium: No pericardial effusion seen Diastolic function: not assessed Atrial Septum: Normal Wall Thickness: RV: Normal LV: Normal Sedation/Tolerance: ??Sedation: CHANCE performed with intravenous conscious sedation. ??Meds Admin: ?Propofol 300mg ??Tolerance: Doppler/CF results Aortic [...] seen, Mild-moderate MR, severe TV regurgitation, Mild AZ. ? CHANCE Summary ? Russel Workman performed [...] - 16:25:20 by Hernan Phelps MD ?? Cinder Pit Worker: Russel Workman By signing this report, the attending wheat buyer certifies that he or she has personally supervised and interpreted the echocardiogram and has reviewed and or edited and agrees with the written comments contained within the report. Procedure Note Hernan Phelps MD - 07/27/2024 Patient name: Loretta Penn Date of test: 07/27/2024 Date of : 1960 () Hospital #: 0 Location: [facility] Cardiac Diagnostic Lab Interpreted by: Hernan Phelps MD Fpga Engineer: Russel Workman MD RN: Reason for Test: [...] 2=Hypo 3=Akinetic 4=Dyskin. 5=Aneurysm 0=Not visualized) Short Stanton-Gastric:=2 S=2 I=2 P=2 L=2 A=2 Long Stanton-Gastric:BP=2 BA=2 MP=2 MA=2 AP=2 AA=2 Chamber Dimensions: [...] seen, Mild-moderate MR, severe TV regurgitation, Mild AZ. CHANCE Summary Russel Workman performed the CHANCE [...] 07/27/2024 - 16:25:20 by Hernan Phelps MD Cinder Pit Worker: Russel Workman By signing this report, the attending wheat buyer certifies that he or she has personally supervised and interpreted the echocardiogram and has reviewed and or edited and agrees with the written comments contained within the report. Russ Pride MD CV ECHO PROCEDURES Final Resu lt * AZ AN PROCEDURE PLACEHOLDER (07/27/2024 1:43 PM CDT) [...] (ABNORMAL) POCT glucose (07/27/2024 11:27 AM CDT) [facility] Glucose, POC 208(H) 70 - 199 mg/dL Blood 07/27/2024 11:2 7 AM CDT 07/27/2024 11:27 AM CDT Russ Pride MD LAB POCT ORDERABLES - DEVICE Final Result [facility] Department [place] [address] * (ABNORMAL) POCT glucose (07/27/2024 8:06 AM CDT) Glucose, POC 216(H) 70 - 199 mg/dL Blood 07/27/2024 8:06 AM CDT 07/27/2024 8:06 AM CDT Russ Pride MD LAB POCT ORDERABLES - DEVICE Final Result Performing Organization Address [facility] Co de Phone Number [facility] [place] [address] * (ABNORMAL) POCT glucose (07/26/2024 9:02 PM CDT) Glucose, POC 259(H) 70 - 199 mg/dL Blood 07/26/2024 9:02 PM CDT 07/26/2024 9:02 PM CDT Russ Pride MD LAB POCT ORDERABLES - DEVICE Final Result Performing Organization Address [facility] Co de Phone Number [facility] [place] [address] * (ABNORMAL) POCT glucose (07/26/2024 4:31 PM CDT) Glucose, POC 332(H) 70 - 199 mg/dL Blood 07/26/2024 4:31 PM CDT 07/26/2024 4:31 PM CDT Russ Pride MD LAB POCT ORDERABLES - DEVICE Final Result Performing Organization Address [facility] Co de Phone Number [facility] [place] [address] * (ABNORMAL) POCT glucose (07/26/2024 4:22 PM CDT) Glucose, POC 344(H) 70 - 199 mg/dL Blood 07/26/2024 4:22 PM CDT 07/26/2024 4:22 PM CDT Russ Pride MD LAB POCT ORDERABLES - DEVICE Final Result Performing Organization Address [facility] de Phone Number [facility] [place] [address] * POCT glucose (07/26/2024 11:49 AM CDT) Glucose, POC 124 70 - 199 mg/dL Blood 07/26/2024 11:4 9 AM CDT 07/26/2024 11:49 AM CDT us Russ Pride MD LAB POCT ORDERABLES - DEVICE Final Result Performing Organization Address [facility] de Phone Number [facility] [place] [address] * POCT glucose (07/26/2024 8:16 AM CDT) Glucose, POC 146 70 - 199 mg/dL Blood 07/26/2024 8:16 AM CDT 07/26/2024 8:16 AM CDT Russ Pride MD LAB POCT ORDERABLES - DEVICE Final Result Performing Organization Address [facility] de Phone Number [facility] [place] [address] * eGFR (07/25/2024 8:04 PM CDT) eGFR [...] MD LAB BLOOD ORDERABLES Ayanna vazquez Result [facility] Department [place] [address] * (ABNORMAL) CBC without differential (07/25/2024 8:04 PM CDT) WBC 10.5(H) 3.8 - 9.9 K/cumm Hgb 12.7 11.9 - 15.5 g/dL [facility] Hct 38.0 35.6 - 45.5 % [facility] Plt 332 150 - 400 K/cumm [facility] MPV 9.4 9.1 - 12.3 fL [facility] RBC 3.92 3.90 - 5.20 M/cumm [facility] MCV 96.9(H) 81.3 - 96.4 fL [facility] MCH 32.4 27.1 - 33.3 pg [facility] MCHC 33.4 32.3 - 35.7 g/dL [facility] RDW CV 12.7 11.1 - 14.9 % [facility] RDW SD 44.7 35.7 - 48.1 fL [facility] NRBC abs 0.00 0.00 - 0.01 K/cumm [facility] Blood 07/25/2024 8:04 PM CDT 07/25/2024 8:53 PM CDT Elvira Cooper MD LAB BLOOD ORDERABLES Ayanna l Result Performing Organization Address City/[facility]/ZIP Co de Phone Number [facility] Department [place] [address] * Magnesium (07/25/2024 8:04 PM CDT) [facility] Magnesium 1.9 1.4 - 2.5 mg/dL Blood 07/25/2024 8:04 PM CDT 07/25/2024 8:54 PM CDT Ynes Roman MD LAB BLOOD ORDERABLES Ayanna l Result Performing Organization Address [facility] Co de Phone Number [facility] [place] [address] * (ABNORMAL) Comprehensive metabolic panel (07/25/2024 8:04 PM CDT) [facility] Sodium 139 135 - 145 mmol/L Potassium, pl 3.8 3.3 - 4.9 mmol/L [facility] Chloride 99 97 - 110 mmol/L [facility] CO2 37(H) 22 - 32 mmol/L [facility] Anion gap 3 2 - 15 mmol/L [facility] BUN 14 6 - 25 mg/dL [facility] Creatinine 0.71 0.60 - 1.10 mg/dL [facility] Glucose 125 70 - 199 mg/dL [facility] Comment: Interpretive Data Fasting glucose >/= 126 [...] Calcium 9.7 8.5 - 10.3 mg/dL [facility] Bilirubin, total 0.3 0.1 - 1.2 mg/dL [facility] Protein, pl 7.7 6.5 - 8.5 g/dL [facility] Albumin 3.4(L) 3.5 - 5.0 g/dL [facility] Alk phos 138(H) 40 - 130 Units/L [facility] ALT 13 7 - 45 Units/L [facility] AST 32 10 - 45 Units/L [facility] Blood 07/25/2024 8:04 PM CDT 07/25/2024 8:54 PM CDT us Elvira Cooper MD LAB BLOOD ORDERABLES Ayanna l Result [facility] [place] [address] * POCT glucose (07/25/2024 8:00 PM CDT) Glucose, POC 124 70 - 199 mg/dL Blood 07/25/2024 8:00 PM CDT 07/25/2024 8:00 PM CDT us Russ Pride MD LAB POCT ORDERABLES - DEVICE Final Result Performing Organization Address [facility]/ZIP Co de Phone Number [facility] [place] [address] * (ABNORMAL) POCT glucose (07/25/2024 5:16 PM CDT) Glucose, POC 244(H) 70 - 199 mg/dL Blood 07/25/2024 5:16 PM CDT 07/25/2024 5:16 PM CDT us Russ Pride MD LAB POCT ORDERABLES - DEVICE Final Result [facility] [facility] [place] Department [place] [address] * IR Follow Up Inpatient (07/25/2024 3:47 [...] - DEVICE Final Result Performing Organization Address [facility] Co de Phone Number [facility] [place] [address] * POCT glucose (07/25/2024 11:57 AM CDT) Glucose, POC 89 70 - 199 mg/dL Blood 07/25/2024 11:5 7 AM CDT 07/25/2024 11:57 AM CDT Russ Pride MD LAB POCT ORDERABLES - DEVICE Final Result Performing Organization Address [facility] Co de Phone Number [facility] [place] [address] * (ABNORMAL) POCT glucose (07/25/2024 8:25 AM CDT) Glucose, POC 215(H) 70 - 199 mg/dL Blood 07/25/2024 8:25 AM CDT 07/25/2024 8:25 AM CDT us Russ Pride MD LAB POCT ORDERABLES - DEVICE Final Result [facility] Department [place] [address] * eGFR (07/24/2024 10:31 PM CDT) eGFR [...] ORDERABLES Ayanna l Result Performing Organization Address [facility] Co de Phone Number [facility] Department [place] [address] * (ABNORMAL) Protime-INR (07/24/2024 10:31 PM CDT) [facility] PT 13.2(H) 9.7 - 13.0 sec INR 1.22(H) 0.90 - 1.20 [facility] Comment: Interpretive data Oral anticoagulant therapeutic ranges: Venous thromboembolism prophylaxis or treatment: 2.0-3.0 CARDIOLOGY Standard range: 2.0-3.0 High-intensity range: 2.5-3.5 Refer to indication-specific guidelines for appropriate target ranges for prosthetic heart valve replacement. Current interpretive data was last revised on 2019. Blood 07/24/2024 10:3 1 PM CDT 07/24/2024 10:58 PM CDT us Russ Pride MD LAB BLOOD ORDERABLES Final Re sult Performing Organization Address [facility] Co de Phone Number [facility] Department [place] [address] * (ABNORMAL) CBC without differential (07/24/2024 10:31 PM CDT) [facility] WBC 6.7 3.8 - 9.9 K/cumm Hgb 12.1 11.9 - 15.5 g/dL [facility] Hct 36.5 35.6 - 45.5 % [facility] Plt 333 150 - 400 K/cumm [facility] MPV 9.3 9.1 - 12.3 fL [facility] RBC 3.79(L) 3.90 - 5.20 M/cumm [facility] MCV 96.3 81.3 - 96.4 fL [facility] MCH 31.9 27.1 - 33.3 pg [facility] MCHC 33.2 32.3 - 35.7 g/dL [facility] RDW CV 13.0 11.1 - 14.9 % [facility] RDW SD 46.4 35.7 - 48.1 fL [facility] NRBC abs 0.00 0.00 - 0.01 K/cumm [facility] Blood 07/24/2024 10:3 1 PM CDT 07/24/2024 10:50 PM CDT Elvira Cooper MD LAB BLOOD ORDERABLES Ayanna l Result [facility] [place] [address] * Magnesium (07/24/2024 10:31 PM CDT) [facility] Magnesium 2.0 1.4 - 2.5 mg/dL Blood 07/24/2024 10:3 1 PM CDT 07/24/2024 10:50 PM CDT Ynes Roman MD LAB BLOOD ORDERABLES Ayanna l Result Performing Organization Address City/[facility]/ZIP Co de Phone Number [facility] Department [place] [address] * (ABNORMAL) Comprehensive metabolic panel (07/24/2024 10:31 PM CDT) [facility] Sodium 135 135 - 145 mmol/L Potassium, pl 4.3 3.3 - 4.9 mmol/L [facility] Chloride 98 97 - 110 mmol/L [facility] CO2 27 22 - 32 mmol/L [facility] Anion gap 10 2 - 15 mmol/L [facility] BUN 22 6 - 25 mg/dL [facility] Creatinine 0.84 0.60 - 1.10 mg/dL [facility] Glucose 297(H) 70 - 199 mg/dL [facility] Comment: Interpretive Data Fasting glucose >/= 126 [...] pl 7.8 6.5 - 8.5 g/dL [facility] Albumin 3.6 3.5 - 5.0 g/dL [facility] Alk phos 175(H) 40 - 130 Units/L [facility] ALT 9 7 - 45 Units/L [facility] AST 27 10 - 45 Units/L [facility] Blood 07/24/2024 10:3 1 PM CDT 07/24/2024 10:50 PM CDT us Elvira Cooper MD LAB BLOOD ORDERABLES Ayanna l Result [facility] [place] [address] * (ABNORMAL) POCT glucose (07/24/2024 11:15 AM CDT) [facility] Glucose, POC 329(H) 70 - 199 mg/dL Comment:Glu2: RN/MD Notified Glucose comment 1 Glu2: RN/MD Notified [facility] Blood 07/24/2024 11:1 5 AM CDT 07/24/2024 11:15 AM CDT us Russ Pride MD LAB POCT ORDERABLES - DEVICE Final Result Performing Organization Address City/[facility]/ZIP Co de Phone Number [facility] Department [place] [address] * (ABNORMAL) POCT glucose (07/24/2024 8:54 AM CDT) Glucose, POC 206(H) 70 - 199 mg/dL Blood 07/24/2024 8:54 AM CDT 07/24/2024 8:54 AM CDT Russ Pride MD LAB POCT ORDERABLES - DEVICE Final Result Performing Organization Address [facility] Co de Phone Number [facility] [place] [address] * (ABNORMAL) POCT glucose (07/24/2024 8:30 AM CDT) Glucose, POC 220(H) 70 - 199 mg/dL Blood 07/24/2024 8:30 AM CDT 07/24/2024 8:30 AM CDT Russ Pride MD LAB POCT ORDERABLES - DEVICE Final Result Performing Organization Address [facility] Co de Phone Number [facility] [place] [address] * eGFR (07/23/2024 8:40 PM CDT) eGFR [...] MD LAB BLOOD ORDERABLES Ayanna vazquez Result [facility] Department [place] [address] * (ABNORMAL) CBC without differential (07/23/2024 8:40 PM CDT) WBC 5.4 3.8 - 9.9 K/cumm Hgb 11.6(L) 11.9 - 15.5 g/dL [facility] Hct 36.1 35.6 - 45.5 % [facility] Plt 319 150 - 400 K/cumm [facility] MPV 9.5 9.1 - 12.3 fL [facility] RBC 3.63(L) 3.90 - 5.20 M/cumm [facility] MCV 99.4(H) 81.3 - 96.4 fL [facility] MCH 32.0 27.1 - 33.3 pg [facility] MCHC 32.1(L) 32.3 - 35.7 g/dL [facility] RDW CV 13.2 11.1 - 14.9 % [facility] RDW SD 48.3(H) 35.7 - 48.1 fL [facility] NRBC abs 0.00 0.00 - 0.01 K/cumm [facility] Blood 07/23/2024 8:40 PM CDT 07/23/2024 9:18 PM CDT Elvira Cooper MD LAB BLOOD ORDERABLES Ayanna l Result Performing Organization Address City/[facility]/ZIP Co de Phone Number [facility] Department [place] [address] * Magnesium (07/23/2024 8:40 PM CDT) [facility] Magnesium 1.9 1.4 - 2.5 mg/dL Blood 07/23/2024 8:40 PM CDT 07/23/2024 9:17 PM CDT Ynes Roman MD LAB BLOOD ORDERABLES Ayanna l Result Performing Organization Address [facility] Co de Phone Number [facility] Department [place] [address] * (ABNORMAL) Comprehensive metabolic panel (07/23/2024 8:40 PM CDT) [facility] Sodium 136 135 - 145 mmol/L Potassium, pl 4.2 3.3 - 4.9 mmol/L [facility] Chloride 98 97 - 110 mmol/L [facility] CO2 27 22 - 32 mmol/L [facility] Anion gap 11 2 - 15 mmol/L [facility] BUN 25 6 - 25 mg/dL [facility] Creatinine 1.05 0.60 - 1.10 mg/dL [facility] Glucose 218(H) 70 - 199 mg/dL [facility] Comment: Interpretive Data Fasting glucose >/= 126 [...] 2022. Calcium 9.0 8.5 - 10.3 mg/dL [facility] Bilirubin, total 0.2 0.1 - 1.2 mg/dL [facility] Protein, pl 7.4 6.5 - 8.5 g/dL [facility] Albumin 3.3(L) 3.5 - 5.0 g/dL [facility] Alk phos 151(H) 40 - 130 Units/L [facility] ALT 12 7 - 45 Units/L [facility] AST 33 10 - 45 Units/L [facility] Blood 07/23/2024 8:40 PM CDT 07/23/2024 9:17 PM CDT Elvira Cooper MD LAB BLOOD ORDERABLES Ayanna l Result Performing Organization Address City/[facility]/ZIP Co de Phone Number [facility] Department [place] [address] * (ABNORMAL) POCT glucose (07/23/2024 8:24 PM CDT) Glucose, POC 248(H) 70 - 199 mg/dL Blood 07/23/2024 8:24 PM CDT 07/23/2024 8:24 PM CDT Russ Pride MD LAB POCT ORDERABLES - DEVICE Final Result [facility] Department [place] [address] * (ABNORMAL) POCT glucose (07/23/2024 5:45 PM CDT) Glucose, POC 251(H) 70 - 199 mg/dL Blood 07/23/2024 5:45 PM CDT 07/23/2024 5:45 PM CDT Russ Pride MD LAB POCT ORDERABLES - DEVICE Final Result Performing Organization Address City/[facility]/ZIP Co de Phone Number OLAMIDE ALEXANDER [facility] Department [place] [address] * (ABNORMAL) POCT glucose (07/23/2024 12:18 PM CDT) Glucose, POC 286(H) 70 - 199 mg/dL Blood 07/23/2024 12:1 8 PM CDT 07/23/2024 12:18 PM CDT Russ Pride MD LAB POCT ORDERABLES - DEVICE Final Result Performing Organization Address [facility] Co de Phone Number OLAMIDE ALEXANDER [facility] Department [place] [address] * PET/CT FDG Skull to Thigh (07/23/2024 [...] FDG-PET/CT IMAGING DATE OF STUDY: ??07/23/2024 SCANNER: [facility] N PET Vision (NV1). ??This is a [...] obtained. ??The study was interpreted on the [employer] workstation. ??The mean liver SUV (reported for quality systems manager purposes) is 3.0. ??For evaluation of sarcoidosis, [...] FDG-PET/CT IMAGING DATE OF STUDY: 07/23/2024 SCANNER: [facility] SiSaf (NV1). This is a high-resolution scanner, which [...] obtained. The study was interpreted on the [employer] workstation. The mean liver SUV (reported for quality systems manager purposes) is 3.0. For evaluation of sarcoidosis, [...] - DEVICE Final Result Performing Organization Address City/[facility]/ZIP Co de Phone Number [facility] [place] [address] * POCT glucose (07/22/2024 3:46 PM CDT) Glucose, POC 76 70 - 199 mg/dL Blood 07/22/2024 3:46 PM CDT 07/22/2024 3:46 PM CDT Russ Pride MD LAB POCT ORDERABLES - DEVICE Final Result Performing Organization Address City/[facility] Co de Phone Number [facility] [place] [address] * (ABNORMAL) POCT glucose (07/22/2024 12:16 PM CDT) Glucose, POC 312(H) 70 - 199 mg/dL Blood 07/22/2024 12:1 6 PM CDT 07/22/2024 12:16 PM CDT Russ Pride MD LAB POCT ORDERABLES - DEVICE Final Result Performing Organization Address [facility] de Phone Number [facility] [place] [address] * (ABNORMAL) POCT glucose (07/22/2024 8:41 AM CDT) Glucose, POC 239(H) 70 - 199 mg/dL Blood 07/22/2024 8:41 AM CDT 07/22/2024 8:41 AM CDT Russ Pride MD LAB POCT ORDERABLES - DEVICE Final Result Performing Organization Address [facility] de Phone Number [facility] [place] [address] * (ABNORMAL) POCT glucose (07/21/2024 8:40 PM CDT) Glucose, POC 235(H) 70 - 199 mg/dL Blood 07/21/2024 8:40 PM CDT 07/21/2024 8:40 PM CDT Russ Pride MD LAB POCT ORDERABLES - DEVICE Final Result Performing Organization Address [facility] de Phone Number [facility] [place] [address] * (ABNORMAL) POCT glucose (07/21/2024 5:12 PM CDT) Glucose, POC 214(H) 70 - 199 mg/dL Blood 07/21/2024 5:12 PM CDT 07/21/2024 5:12 PM CDT Russ Pride MD LAB POCT ORDERABLES - DEVICE Final Result Performing Organization Address [facility] Co de Phone Number [facility] [place] [address] * POCT glucose (07/21/2024 3:02 PM CDT) Glucose, POC 113 70 - 199 mg/dL Blood 07/21/2024 3:02 PM CDT 07/21/2024 3:02 PM CDT us Russ Pride MD LAB POCT ORDERABLES - DEVICE Final Result Performing Organization Address [facility] [place] [address] * (ABNORMAL) POCT glucose (07/21/2024 2:14 PM CDT) Glucose, POC 55(L) 70 - 199 mg/dL Blood 07/21/2024 2:14 PM CDT 07/21/2024 2:14 PM CDT Russ Pride MD LAB POCT ORDERABLES - DEVICE Final Result Performing Organization Address [facility] Co de Phone Number [facility] [place] [address] * POCT glucose (07/21/2024 12:11 PM CDT) Glucose, POC 156 70 - 199 mg/dL Blood 07/21/2024 12:1 1 PM CDT 07/21/2024 12:11 PM CDT Russ Pride MD LAB POCT ORDERABLES - DEVICE Final Result Performing Organization Address City/[facility] Co de Phone Number [facility] [place] [address] * POCT glucose (07/21/2024 9:15 AM CDT) Glucose, POC 186 70 - 199 mg/dL Blood 07/21/2024 9:15 AM CDT 07/21/2024 9:15 AM CDT us Russ Pride MD LAB POCT ORDERABLES - DEVICE Final Result Performing Organization Address City/State/[facility] Co de Phone Number [facility] Department [place] [address] * eGFR (07/20/2024 8:23 PM CDT) eGFR [...] ORDERABLES Ayanna l Result Performing Organization Address City/[facility]/ZIP Co de Phone Number [facility] Department [place] [address] * (ABNORMAL) CBC without differential (07/20/2024 8:23 PM CDT) WBC 5.1 3.8 - 9.9 K/cumm Hgb 11.2(L) 11.9 - 15.5 g/dL [facility] Hct 34.8(L) 35.6 - 45.5 % [facility] Plt 279 150 - 400 K/cumm [facility] MPV 9.7 9.1 - 12.3 fL [facility] RBC 3.49(L) 3.90 - 5.20 M/cumm [facility] MCV 99.7(H) 81.3 - 96.4 fL [facility] MCH 32.1 27.1 - 33.3 pg [facility] MCHC 32.2(L) 32.3 - 35.7 g/dL [facility] RDW CV 13.6 11.1 - 14.9 % [facility] RDW SD 49.9(H) 35.7 - 48.1 fL [facility] NRBC abs 0.00 0.00 - 0.01 K/cumm [facility] Blood 07/20/2024 8:23 PM CDT 07/20/2024 8:50 PM CDT Elvira Cooper MD LAB BLOOD ORDERABLES Ayanna l Result [facility] Department [place] [address] * Magnesium (07/20/2024 8:23 PM CDT) Magnesium 2.1 1.4 - 2.5 mg/dL Blood 07/20/2024 8:23 PM CDT 07/20/2024 8:50 PM CDT us Ynes Roman MD LAB BLOOD ORDERABLES Ayanna vazquez Result [facility] Department [place] [address] * (ABNORMAL) Comprehensive metabolic panel (07/20/2024 8:23 PM CDT) Sodium 139 135 - 145 mmol/L Potassium, pl 4.5 3.3 - 4.9 mmol/L [facility] Chloride 101 97 - 110 mmol/L [facility] CO2 27 22 - 32 mmol/L [facility] Anion gap 11 2 - 15 mmol/L [facility] BUN 22 6 - 25 mg/dL [facility] Creatinine 0.94 0.60 - 1.10 mg/dL [facility] Glucose 159 70 - 199 mg/dL [facility] Comment: Interpretive Data Fasting glucose >/= 126 [...] 2022. Calcium 9.8 8.5 - 10.3 mg/dL [facility] Bilirubin, total 0.2 0.1 - 1.2 mg/dL [facility] Protein, pl 7.5 6.5 - 8.5 g/dL [facility] Albumin 3.4(L) 3.5 - 5.0 g/dL [facility] Alk phos 155(H) 40 - 130 Units/L [facility] ALT 7 7 - 45 Units/L [facility] AST 29 10 - 45 Units/L [facility] Blood 07/20/2024 8:23 PM CDT 07/20/2024 8:50 PM CDT us Elvira Cooper MD LAB BLOOD ORDERABLES Ayanna l Result Performing Organization Address City/[facility] Co de Phone Number [facility] [place] [address] * POCT glucose (07/20/2024 7:44 PM CDT) Glucose, POC 165 70 - 199 mg/dL Blood 07/20/2024 7:44 PM CDT 07/20/2024 7:44 PM CDT us Ynes Roman MD LAB POCT ORDERABLES - DEV ICE Final Result Performing Organization Address [facility] Co de Phone Number [facility] [place] [address] * POCT glucose (07/20/2024 5:55 PM CDT) Glucose, POC 92 70 - 199 mg/dL Blood 07/20/2024 5:55 PM CDT 07/20/2024 5:55 PM CDT us Ynes Roman MD LAB POCT ORDERABLES - DEV ICE Final Result Performing Organization Address [facility] Co de Phone Number [facility] Department [place] [address] * POCT glucose (07/20/2024 12:08 PM CDT) Glucose, POC 173 70 - 199 mg/dL Blood 07/20/2024 12:0 8 PM CDT 07/20/2024 12:08 PM CDT us Ynes Roman MD LAB POCT ORDERABLES - DEV ICE Final Result Performing Organization Address City/[facility] Co de Phone Number [facility] Department [place] [address] * POCT glucose (07/20/2024 8:19 AM CDT) Glucose, POC 170 70 - 199 mg/dL Blood 07/20/2024 8:19 AM CDT 07/20/2024 8:19 AM CDT us Ynes Roman MD LAB POCT ORDERABLES - DEV ICE Final Result [facility] [place] [address] * (ABNORMAL) Urinalysis reflex to microscopic and culture Urine, clean voided (07/20/2024 7:06 AM CDT) Color, ur Straw Yellow Clarity, ur Clear Clear [facility] Specific gravity, ur 1.008 1.003 - 1.030 [facility] pH, urine 7.0 [facility] Comment: Interpretive Data ? Urine pH is affected by diet, medications, systemic acid-base disturbances, and renal tubular function. ??pH may affect urinary stone formation. ??For example, urine pH below 6.0 may help reduce the tendency for calcium phosphate stones and pH greater than 6.0 may reduce the tendency for uric acid stone formation. Source: [facility] Current Interpretive Data was last revised on 2017 Protein, ur ql Negative Negative [facility] Glucose, ur ql Trace(A) Negative [facility] Ketones, ur Negative Negative [facility] Bilirubin, ur Negative Negative [facility] Blood, ur 1+(A) Negative [facility] Urobilinogen, ur <2.0 <2.0 mg/dL [facility] Nitrite, ur Negative Negative [facility] Leukocyte esterase, ur Negative Negative [facility] UA reflex comment Reflex to microscopic UA will be performed. [facility] Urine, clean voided 07/20/2024 7:06 AM CDT 07/20/2024 8:11 AM CDT us Ynes Roman MD LAB MICROBIOLOGY - GENERA L ORDERABLES Final Result Performing Organization Address [facility] Co de Phone Number [facility] Department [place] [address] * (ABNORMAL) Urinalysis, microscopic only (07/20/2024 7:06 AM CDT) WBC, ur 0-5 0 - 5 /HPF RBC, ur 0-2 0 - 2 /HPF [facility] Epithelial cells, squamous, ur 1-5 0 - 5 /HPF [facility] Epithelial cells, transitional, ur 1-5 0 - 0 /HPF [facility] Bacteria, ur 1+(A) [facility] Culture Reflex Comment Reflex conditions for urine culture (WBC >10) not met. [facility] Urine, clean voided 07/20/2024 7:06 AM CDT 07/20/2024 8:11 AM CDT us Ynes Roman MD LAB URINE ORDERABLES Ayanna l Result Performing Organization Address [facility] de Phone Number [facility] Department [place] [address] * (ABNORMAL) eGFR (07/19/2024 9:57 PM CDT) [...] MD LAB BLOOD ORDERABLES Ayanna vazquez Result [facility] [place] [address] * (ABNORMAL) CBC without differential (07/19/2024 9:57 PM CDT) WBC 4.7 3.8 - 9.9 K/cumm Hgb 10.6(L) 11.9 - 15.5 g/dL [facility] Hct 33.5(L) 35.6 - 45.5 % [facility] Plt 259 150 - 400 K/cumm [facility] MPV 9.7 9.1 - 12.3 fL [facility] RBC 3.31(L) 3.90 - 5.20 M/cumm [facility] MCV 101.2(H) 81.3 - 96.4 fL [facility] MCH 32.0 27.1 - 33.3 pg [facility] MCHC 31.6(L) 32.3 - 35.7 g/dL [facility] RDW CV 13.8 11.1 - 14.9 % [facility] RDW SD 51.0(H) 35.7 - 48.1 fL [facility] NRBC abs 0.00 0.00 - 0.01 K/cumm [facility] Blood 07/19/2024 9:57 PM CDT 07/19/2024 10:30 PM CDT Elvira Cooper MD LAB BLOOD ORDERABLES Ayanna l Result Performing Organization Address City/[facility]/ZIP Co de Phone Number [facility] [place] [address] * Magnesium (07/19/2024 9:57 PM CDT) Pathologist [facility] Magnesium 2.2 1.4 - 2.5 mg/dL Blood 07/19/2024 9:57 PM CDT 07/19/2024 10:29 PM CDT Ynes Roman MD LAB BLOOD ORDERABLES Ayanna l Result Performing Organization Address [facility] de Phone Number [facility] Department [place] [address] * (ABNORMAL) Comprehensive metabolic panel (07/19/2024 9:57 PM CDT) Pathologist [facility] Sodium 138 135 - 145 mmol/L Potassium, pl 5.0(H) 3.3 - 4.9 mmol/L [facility] Comment:Hemolyzed; Potassium value may be falsely elevated by as much as 0.3-0.5 mmol/L. Suggest redraw and reanalysis. Chloride 98 97 - 110 mmol/L [facility] CO2 29 22 - 32 mmol/L [facility] Anion gap 11 2 - 15 mmol/L [facility] BUN 25 6 - 25 mg/dL [facility] Creatinine 1.09 0.60 - 1.10 mg/dL [facility] Glucose 192 70 - 199 mg/dL [facility] Comment: Interpretive Data Fasting glucose >/= 126 [...] Calcium 9.3 8.5 - 10.3 mg/dL [facility] Bilirubin, total 0.2 0.1 - 1.2 mg/dL [facility] Protein, pl 7.2 6.5 - 8.5 g/dL [facility] Albumin 3.1(L) 3.5 - 5.0 g/dL [facility] Alk phos 154(H) 40 - 130 Units/L [facility] ALT 7 7 - 45 Units/L [facility] AST 33 10 - 45 Units/L [facility] Comment:Hemolyzed; result ma y be falsely elevated Blood 07/19/2024 9:57 PM CDT 07/19/2024 10:29 PM CDT us Elvira Cooper MD LAB BLOOD ORDERABLES Ayanna l Result [facility] [place] [address] * (ABNORMAL) POCT glucose (07/19/2024 9:49 PM CDT) Glucose, POC 207(H) 70 - 199 mg/dL Blood 07/19/2024 9:49 PM CDT 07/19/2024 9:49 PM CDT us Ynes Roman MD LAB POCT ORDERABLES - DEV ICE Final Result [facility] [place] [address] * POCT glucose (07/19/2024 5:03 PM CDT) Glucose, POC 133 70 - 199 mg/dL Blood 07/19/2024 5:03 PM CDT 07/19/2024 5:03 PM CDT Ynes Roman MD LAB POCT ORDERABLES - DEV ICE Final Result Performing Organization Address [facility] Co de Phone Number [facility] [place] [address] * Urea nitrogen, urine, random (07/19/2024 12:59 PM CDT) Urea nitrogen, ur 374 mg/dL Comment: Interpretive Data No reference range established. Current interpretive data was last revised 2019. Urine 07/19/2024 12:5 9 PM CDT 07/19/2024 1:46 PM CDT Ynes Roman MD LAB URINE ORDERABLES Ayanna l Result Performing Organization Address [facility] de Phone Number [facility] [place] [address] * Sodium, urine, random (07/19/2024 12:59 PM CDT) Sodium, ur 85 mmol/L Comment: Interpretive Data No reference range established. Current interpretive data was last revised 2019. Urine 07/19/2024 12:5 9 PM CDT 07/19/2024 1:46 PM CDT Ynes Roman MD LAB URINE ORDERABLES Ayanna l Result Performing Organization Address [facility] Co de Phone Number [facility] [place] [address] * Creatinine, urine, random (07/19/2024 12:59 PM CDT) Creatinine Ur 70.4 mg/dL Comment: Interpretive Data No reference range established. Current interpretive data was last revised 2019. Urine 07/19/2024 12:5 9 PM CDT 07/19/2024 1:46 PM CDT Ynes Roman MD LAB URINE ORDERABLES Ayanna l Result Performing Organization Address [facility] de Phone Number [facility] [place] [address] * (ABNORMAL) POCT glucose (07/19/2024 12:48 PM CDT) Glucose, POC 222(H) 70 - 199 mg/dL Blood 07/19/2024 12:4 8 PM CDT 07/19/2024 12:48 PM CDT Ynes Roman MD LAB POCT ORDERABLES - DEV ICE Final Result Performing Organization Address [facility] de Phone Number [facility] [place] [address] * POCT glucose (07/19/2024 12:11 PM CDT) Glucose, POC 179 70 - 199 mg/dL Blood 07/19/2024 12:1 1 PM CDT 07/19/2024 12:11 PM CDT Ynes Roman MD LAB POCT ORDERABLES - DEV ICE Final Result Performing Organization Address [facility] de Phone Number [facility] [place] [address] * (ABNORMAL) eGFR (07/18/2024 9:07 PM CDT) [...] MD LAB BLOOD ORDERABLES Ayanna vazquez Result [facility] One [facility] Department of Laboratories [place], [place] [id number] * Differential, auto (07/18/2024 9:07 PM CDT) Neutrophil abs 3.5 1.5 - 6.5 K/cumm Imm gran abs 0.1 0.0 - 0.1 K/cumm [facility] Lymphocyte abs 1.0 0.8 - 3.3 K/cumm [facility] Monocyte abs 0.7 0.2 - 0.8 K/cumm [facility] Eosinophil abs 0.2 0.0 - 0.5 K/cumm [facility] Basophil abs 0.1 0.0 - 0.1 K/cumm [facility] Neutrophil pct 63.5 % [facility] Comment: Interpretive Data Percent cell count reference ranges are not reported, since discordance with absolute values may lead to misinterpretation of CBC data. Current Interpretive Data was last revised on 2018. Imm gran pct 1.5 % [facility] Comment: Interpretive Data Percent cell count reference ranges are not reported, since discordance with absolute values may lead to misinterpretation of CBC data. Current Interpretive Data was last revised on 2018. Lymphocyte pct 18.2 % [facility] Comment: Interpretive Data Percent cell count reference ranges are not reported, since discordance with absolute values may lead to misinterpretation of CBC data. Current Interpretive Data was last revised on 2018. Monocyte pct 12.2 % [facility] Comment: Interpretive Data Percent cell count reference ranges are not reported, since discordance with absolute values may lead to misinterpretation of CBC data. Current Interpretive Data was last revised on 2018. Eosinophil pct 3.5 % [facility] Comment: Interpretive Data Percent cell count reference ranges are not reported, since discordance with absolute values may lead to misinterpretation of CBC data. Current Interpretive Data was last revised on 2018. Basophil pct 1.1 % [facility] Comment: Interpretive Data Percent cell count reference ranges are not reported, since discordance with absolute values may lead to misinterpretation of CBC data. Current Interpretive Data was last revised on 2018. Blood 07/18/2024 9:07 PM CDT 07/18/2024 9:54 PM CDT us Ynes Roman MD LAB BLOOD ORDERABLES Ayanna l Result [facility] One [facility] Department of Laboratories [place], [place] [id number] * (ABNORMAL) CBC with auto differential (07/18/2024 9:07 PM CDT) WBC 5.3 3.8 - 9.9 K/cumm Hgb 11.4(L) 11.9 - 15.5 g/dL [facility] Hct 35.5(L) 35.6 - 45.5 % [facility] Plt 257 150 - 400 K/cumm [facility] MPV 9.8 9.1 - 12.3 fL [facility] RBC 3.50(L) 3.90 - 5.20 M/cumm [facility] MCV 101.4(H) 81.3 - 96.4 fL [facility] MCH 32.6 27.1 - 33.3 pg [facility] MCHC 32.1(L) 32.3 - 35.7 g/dL [facility] RDW CV 13.8 11.1 - 14.9 % [facility] RDW SD 51.6(H) 35.7 - 48.1 fL [facility] NRBC abs 0.00 0.00 - 0.01 K/cumm [facility] Blood 07/18/2024 9:07 PM CDT 07/18/2024 9:54 PM CDT us Ynes Roman MD LAB BLOOD ORDERABLES Ayanna vazquez Result [facility] Department [place] [address] * (ABNORMAL) CBC without differential (07/18/2024 9:07 PM CDT) WBC 5.3 3.8 - 9.9 K/cumm Hgb 11.4(L) 11.9 - 15.5 g/dL [facility] Hct 35.5(L) 35.6 - 45.5 % [facility] Plt 257 150 - 400 K/cumm [facility] MPV 9.8 9.1 - 12.3 fL [facility] RBC 3.50(L) 3.90 - 5.20 M/cumm [facility] MCV 101.4(H) 81.3 - 96.4 fL [facility] MCH 32.6 27.1 - 33.3 pg [facility] MCHC 32.1(L) 32.3 - 35.7 g/dL [facility] RDW CV 13.8 11.1 - 14.9 % [facility] RDW SD 51.6(H) 35.7 - 48.1 fL [facility] NRBC abs 0.00 0.00 - 0.01 K/cumm [facility] Blood 07/18/2024 9:07 PM CDT 07/18/2024 9:50 PM CDT Elvira Cooper MD LAB BLOOD ORDERABLES Ayanna l Result Performing Organization Address City/[facility] Co de Phone Number [facility] [place] [address] * Magnesium (07/18/2024 9:07 PM CDT) [facility] Magnesium 2.0 1.4 - 2.5 mg/dL Blood 07/18/2024 9:07 PM CDT 07/18/2024 9:49 PM CDT Ynes Roman MD LAB BLOOD ORDERABLES Ayanna l Result Performing Organization Address [facility] de Phone Number [facility] [place] [address] * (ABNORMAL) Comprehensive metabolic panel (07/18/2024 9:07 PM CDT) Pathologist [facility] Sodium 131(L) 135 - 145 mmol/L Potassium, pl 4.5 3.3 - 4.9 mmol/L [facility] Chloride 95(L) 97 - 110 mmol/L [facility] CO2 28 22 - 32 mmol/L [facility] Anion gap 8 2 - 15 mmol/L [facility] BUN 26(H) 6 - 25 mg/dL [facility] Creatinine 1.66(H) 0.60 - 1.10 mg/dL [facility] Glucose 251(H) 70 - 199 mg/dL [facility] Comment: Interpretive Data Fasting glucose >/= 126 [...] total 0.3 0.1 - 1.2 mg/dL [facility] Protein, pl 7.8 6.5 - 8.5 g/dL [facility] Albumin 3.5 3.5 - 5.0 g/dL [facility] Alk phos 165(H) 40 - 130 Units/L [facility] ALT 9 7 - 45 Units/L [facility] AST 30 10 - 45 Units/L [facility] Blood 07/18/2024 9:07 PM CDT 07/18/2024 9:49 PM CDT us Elvira Cooper MD LAB BLOOD ORDERABLES Ayanna l Result [facility] Department [place] [address] * (ABNORMAL) POCT glucose (07/18/2024 8:17 PM CDT) [facility] Signature Glucose, POC 304(H) 70 - 199 mg/dL Blood 07/18/2024 8:17 PM CDT 07/18/2024 8:17 PM CDT us Ynes Roman MD LAB POCT ORDERABLES - DEV ICE Final Result [facility] Department [place] [address] * (ABNORMAL) POCT glucose (07/18/2024 5:16 PM CDT) Glucose, POC 378(H) 70 - 199 mg/dL Blood 07/18/2024 5:16 PM CDT 07/18/2024 5:16 PM CDT Ynes Roman MD LAB POCT ORDERABLES - DEV ICE Final Result Performing Organization Address [facility] de Phone Number [facility] [place] [address] * (ABNORMAL) POCT glucose (07/18/2024 11:41 AM CDT) Glucose, POC 205(H) 70 - 199 mg/dL Blood 07/18/2024 11:4 1 AM CDT 07/18/2024 11:41 AM CDT Ynes Roman MD LAB POCT ORDERABLES - DEV ICE Final Result Performing Organization Address [facility] de Phone Number [facility] [place] [address] * (ABNORMAL) POCT glucose (07/18/2024 8:17 AM CDT) Glucose, POC 215(H) 70 - 199 mg/dL Blood 07/18/2024 8:17 AM CDT 07/18/2024 8:17 AM CDT Ynes Roman MD LAB POCT ORDERABLES - DEV ICE Final Result Performing Organization Address [facility] [place] [address] * eGFR (07/17/2024 9:17 PM CDT) eGFR [...] ORDERABLES Ayanna vazquez Result Performing Organization Address City/State/[facility] Co de Phone Number [facility] One [facility] Department [place] [address] * (ABNORMAL) CBC without differential (07/17/2024 9:17 PM CDT) WBC 4.5 3.8 - 9.9 K/cumm Hgb 11.1(L) 11.9 - 15.5 g/dL [facility] Hct 34.5(L) 35.6 - 45.5 % [facility] Plt 228 150 - 400 K/cumm [facility] MPV 10.0 9.1 - 12.3 fL [facility] RBC 3.48(L) 3.90 - 5.20 M/cumm [facility] MCV 99.1(H) 81.3 - 96.4 fL [facility] MCH 31.9 27.1 - 33.3 pg [facility] MCHC 32.2(L) 32.3 - 35.7 g/dL [facility] RDW CV 13.9 11.1 - 14.9 % [facility] RDW SD 50.4(H) 35.7 - 48.1 fL [facility] NRBC abs 0.00 0.00 - 0.01 K/cumm [facility] Blood 07/17/2024 9:17 PM CDT 07/17/2024 10:09 PM CDT Elvira Cooper MD LAB BLOOD ORDERABLES Ayanna l Result Performing Organization Address City/[facility]/ZIP Co de Phone Number [facility] Department [place] [address] * Magnesium (07/17/2024 9:17 PM CDT) [facility] Magnesium 1.8 1.4 - 2.5 mg/dL Blood 07/17/2024 9:17 PM CDT 07/17/2024 10:06 PM CDT us Ynes Roman MD LAB BLOOD ORDERABLES Ayanna l Result [facility] Department [place] [address] * (ABNORMAL) Comprehensive metabolic panel (07/17/2024 9:17 PM CDT) Pathologist [facility] Sodium 133(L) 135 - 145 mmol/L Potassium, pl 3.9 3.3 - 4.9 mmol/L [facility] Chloride 95(L) 97 - 110 mmol/L [facility] CO2 31 22 - 32 mmol/L [facility] Anion gap 7 2 - 15 mmol/L [facility] BUN 19 6 - 25 mg/dL [facility] Creatinine 0.89 0.60 - 1.10 mg/dL [facility] Glucose 298(H) 70 - 199 mg/dL [facility] Comment: Interpretive Data Fasting glucose >/= 126 [...] 2022. Calcium 9.1 8.5 - 10.3 mg/dL [facility] Bilirubin, total 0.3 0.1 - 1.2 mg/dL [facility] Protein, pl 7.2 6.5 - 8.5 g/dL [facility] Albumin 3.2(L) 3.5 - 5.0 g/dL [facility] Alk phos 138(H) 40 - 130 Units/L [facility] ALT 6(L) 7 - 45 Units/L [facility] AST 19 10 - 45 Units/L [facility] Blood 07/17/2024 9:17 PM CDT 07/17/2024 10:06 PM CDT us Elvira Cooper MD LAB BLOOD ORDERABLES Ayanna vazquez Result [facility] One [facility] [place] [address] * (ABNORMAL) POCT glucose (07/17/2024 9:04 PM CDT) [facility] Glucose, POC 311(H) 70 - 199 mg/dL Blood 07/17/2024 9:04 PM CDT 07/17/2024 9:04 PM CDT us Ynes Roman MD LAB POCT ORDERABLES - DEV ICE Final Result OL[facility]IDE ALEXANDER [facility] Department [place] [address] * POCT glucose (07/17/2024 4:48 PM CDT) Glucose, POC 155 70 - 199 mg/dL Blood 07/17/2024 4:48 PM CDT 07/17/2024 4:48 PM CDT Ynes Roman MD LAB POCT ORDERABLES - DEV ICE Final Result Performing Organization Address [facility] Co de Phone Number OL[facility] ALEXANDER [facility]el [facility] [place] [address] * NM MPI SPECT Single Study (Rest) [...] DEV ICE Final Result Performing Organization Address [facility] Co de Phone Number [facility]LEXANDERS[facility] [place] [address] * POCT glucose (07/17/2024 7:45 AM CDT) Glucose, POC 184 70 - 199 mg/dL Blood 07/17/2024 7:45 AM CDT 07/17/2024 7:45 AM CDT us Ynes Roman MD LAB POCT ORDERABLES - DEV ICE Final Result Performing Organization Address [facility] de Phone Number [facility] Department [place] [address] * eGFR (07/16/2024 9:13 PM CDT) eGFR [...] MD LAB BLOOD ORDERABLES Ayanna vazquez Result [facility] One [facility] Department [place] [address] * Differential, auto (07/16/2024 9:13 PM CDT) Neutrophil abs 3.5 1.5 - 6.5 K/cumm Imm gran abs 0.0 0.0 - 0.1 K/cumm [facility] Lymphocyte abs 1.1 0.8 - 3.3 K/cumm [facility] Monocyte abs 0.7 0.2 - 0.8 K/cumm [facility] Eosinophil abs 0.1 0.0 - 0.5 K/cumm [facility] Basophil abs 0.1 0.0 - 0.1 K/cumm [facility] Neutrophil pct 64.0 % [facility] Comment: Interpretive Data Percent cell count reference ranges are not reported, since discordance with absolute values may lead to misinterpretation of CBC data. Current Interpretive Data was last revised on 2018. Imm gran pct 0.5 % [facility] Comment: Interpretive Data Percent cell count reference ranges are not reported, since discordance with absolute values may lead to misinterpretation of CBC data. Current Interpretive Data was last revised on 2018. Lymphocyte pct 19.2 % [facility] Comment: Interpretive Data Percent cell count reference ranges are not reported, since discordance with absolute values may lead to misinterpretation of CBC data. Current Interpretive Data was last revised on 2018. Monocyte pct 12.9 % [facility] Comment: Interpretive Data Percent cell count reference ranges are not reported, since discordance with absolute values may lead to misinterpretation of CBC data. Current Interpretive Data was last revised on 2018. Eosinophil pct 2.5 % [facility] Comment: Interpretive Data Percent cell count reference ranges are not reported, since discordance with absolute values may lead to misinterpretation of CBC data. Current Interpretive Data was last revised on 2018. Basophil pct 0.9 % [facility] Comment: Interpretive Data Percent cell count reference ranges are not reported, since discordance with absolute values may lead to misinterpretation of CBC data. Current Interpretive Data was last revised on 2018. Blood 07/16/2024 9:13 PM CDT 07/16/2024 9:50 PM CDT Ynes Roman MD LAB BLOOD ORDERABLES Ayanna vazquez Result [facility] One [facility] Department [place] [address] * (ABNORMAL) CBC with auto differential (07/16/2024 9:13 PM CDT) WBC 5.6 3.8 - 9.9 K/cumm Hgb 11.0(L) 11.9 - 15.5 g/dL [facility] Hct 33.4(L) 35.6 - 45.5 % [facility] Plt 219 150 - 400 K/cumm [facility] MPV 9.9 9.1 - 12.3 fL [facility] RBC 3.35(L) 3.90 - 5.20 M/cumm [facility] MCV 99.7(H) 81.3 - 96.4 fL [facility] MCH 32.8 27.1 - 33.3 pg [facility] MCHC 32.9 32.3 - 35.7 g/dL [facility] RDW CV 13.9 11.1 - 14.9 % [facility] RDW SD 50.5(H) 35.7 - 48.1 fL [facility] NRBC abs 0.00 0.00 - 0.01 K/cumm [facility] Blood 07/16/2024 9:13 PM CDT 07/16/2024 9:50 PM CDT us Ynes Roman MD LAB BLOOD ORDERABLES Ayanna vazquez Result Performing Organization Address [facility] Co de Phone Number [facility] Department [place] [address] * (ABNORMAL) CBC without differential (07/16/2024 9:13 PM CDT) WBC 5.6 3.8 - 9.9 K/cumm Hgb 11.0(L) 11.9 - 15.5 g/dL [facility] Hct 33.4(L) 35.6 - 45.5 % [facility] Plt 219 150 - 400 K/cumm [facility] MPV 9.9 9.1 - 12.3 fL [facility] RBC 3.35(L) 3.90 - 5.20 M/cumm [facility] MCV 99.7(H) 81.3 - 96.4 fL [facility] MCH 32.8 27.1 - 33.3 pg [facility] MCHC 32.9 32.3 - 35.7 g/dL [facility] RDW CV 13.9 11.1 - 14.9 % [facility] RDW SD 50.5(H) 35.7 - 48.1 fL [facility] NRBC abs 0.00 0.00 - 0.01 K/cumm [facility] Blood 07/16/2024 9:13 PM CDT 07/16/2024 9:47 PM CDT us Elvira Cooper MD LAB BLOOD ORDERABLES Ayanna vazquez Result Performing Organization Address [facility]/ZIP Co de Phone Number [facility] Department [place] [address] * Magnesium (07/16/2024 9:13 PM CDT) Pathologist [facility] Magnesium 2.0 1.4 - 2.5 mg/dL Blood 07/16/2024 9:13 PM CDT 07/16/2024 9:48 PM CDT us Ynes Roman MD LAB BLOOD ORDERABLES Ayanna george Result [facility] One [facility] Department [place] [address] * (ABNORMAL) Comprehensive metabolic panel (07/16/2024 9:13 PM CDT) Sodium 134(L) 135 - 145 mmol/L Potassium, pl 4.0 3.3 - 4.9 mmol/L [facility] Chloride 93(L) 97 - 110 mmol/L [facility] CO2 33(H) 22 - 32 mmol/L [facility] Anion gap 8 2 - 15 mmol/L [facility] BUN 17 6 - 25 mg/dL [facility] Creatinine 1.01 0.60 - 1.10 mg/dL [facility] Glucose 106 70 - 199 mg/dL [facility] Comment: Interpretive Data Fasting glucose >/= 126 [...] 2022. Calcium 9.5 8.5 - 10.3 mg/dL [facility] Bilirubin, total 0.3 0.1 - 1.2 mg/dL [facility] Protein, pl 7.3 6.5 - 8.5 g/dL [facility] Albumin 3.2(L) 3.5 - 5.0 g/dL [facility] Alk phos 148(H) 40 - 130 Units/L [facility] ALT 5(L) 7 - 45 Units/L [facility] AST 24 10 - 45 Units/L [facility] Blood 07/16/2024 9:13 PM CDT 07/16/2024 9:48 PM CDT Elvira Cooper MD LAB BLOOD ORDERABLES Ayanna l Result Performing Organization Address [facility] Co de Phone Number [facility] [place] [address] * POCT glucose (07/16/2024 8:06 PM CDT) Glucose, POC 86 70 - 199 mg/dL Blood 07/16/2024 8:06 PM CDT 07/16/2024 8:06 PM CDT us Ynes Roman MD LAB POCT ORDERABLES - DEV ICE Final Result Performing Organization Address City/[facility] Co de Phone Number [facility] [place] [address] * POCT glucose (07/16/2024 4:23 PM CDT) Glucose, POC 100 70 - 199 mg/dL Blood 07/16/2024 4:23 PM CDT 07/16/2024 4:23 PM CDT Ynes Roman MD LAB POCT ORDERABLES - DEV ICE Final Result Performing Organization Address City/[facility] Co de Phone Number [facility] [place] [address] * CTA Heart and Coronary Arteries W [...] 0 AM CDT 07/16/2024 11:00 AM CDT us Ynes Roman MD LAB POCT ORDERABLES - DEV ICE Final Result [facility] One [facility] Department [place] [address] * POCT glucose (07/16/2024 7:42 AM CDT) Glucose, POC 137 70 - 199 mg/dL Blood 07/16/2024 7:42 AM CDT 07/16/2024 7:42 AM CDT us Ynes Roman MD LAB POCT ORDERABLES - DEV ICE Final Result Performing Organization Address [facility] Co de Phone Number [facility] [place] [address] * Potassium, whole blood (07/16/2024 2:15 AM CDT) Potassium, bld 4.1 3.3 - 4.9 mmol/L Blood 07/16/2024 2:15 AM CDT 07/16/2024 3:57 AM CDT us Ynes Roman MD LAB BLOOD ORDERABLES Ayanna l Result Performing Organization Address [facility] de Phone Number OL[facility]IDE [facility] Department [place] [address] * eGFR (07/15/2024 10:22 PM CDT) eGFR [...] ORDERABLES Ayanna l Result Performing Organization Address City/[facility]/ZIP Co de Phone Number [facility] One [facility] Department [place] [address] * (ABNORMAL) CBC without differential (07/15/2024 10:22 PM CDT) WBC 6.5 3.8 - 9.9 K/cumm Hgb 11.0(L) 11.9 - 15.5 g/dL [facility] Hct 33.6(L) 35.6 - 45.5 % [facility] Plt 233 150 - 400 K/cumm [facility] MPV 10.5 9.1 - 12.3 fL [facility] RBC 3.37(L) 3.90 - 5.20 M/cumm [facility] MCV 99.7(H) 81.3 - 96.4 fL [facility] MCH 32.6 27.1 - 33.3 pg [facility] MCHC 32.7 32.3 - 35.7 g/dL [facility] RDW CV 14.3 11.1 - 14.9 % [facility] RDW SD 52.1(H) 35.7 - 48.1 fL [facility] NRBC abs 0.00 0.00 - 0.01 K/cumm [facility] Blood 07/15/2024 10:2 2 PM CDT 07/15/2024 11:27 PM CDT Elvira Cooper MD LAB BLOOD ORDERABLES Ayanna l Result [facility] One [facility] Department [place] [address] * Magnesium (07/15/2024 10:22 PM CDT) Pathologist [facility] Magnesium 1.8 1.4 - 2.5 mg/dL Blood 07/15/2024 10:2 2 PM CDT 07/15/2024 11:27 PM CDT Ynes Roman MD LAB BLOOD ORDERABLES Ayanna l Result [facility] Department [place] [address] * (ABNORMAL) Comprehensive metabolic panel (07/15/2024 10:22 PM CDT) [facility] Sodium 137 135 - 145 mmol/L Potassium, pl See Comment 3.3 - 4.9 mmol/L [facility] Comment:Credited; Hemolyzed Specimen Chloride 97 97 - 110 mmol/L [facility] CO2 31 22 - 32 mmol/L [facility] Anion gap 9 2 - 15 mmol/L [facility] BUN 20 6 - 25 mg/dL [facility] Creatinine 0.77 0.60 - 1.10 mg/dL [facility] Glucose 119 70 - 199 mg/dL [facility] Comment: Interpretive Data Fasting glucose >/= 126 [...] 2022. Calcium 9.5 8.5 - 10.3 mg/dL [facility] Bilirubin, total 0.3 0.1 - 1.2 mg/dL [facility] Protein, pl 7.5 6.5 - 8.5 g/dL [facility] Albumin 3.3(L) 3.5 - 5.0 g/dL [facility] Alk phos 143(H) 40 - 130 Units/L [facility] Comment:Hemolyzed; result ma y be falsely decreased ALT See Comment 7 - 45 Units/L [facility] Comment:Credited; Hemolyzed Specimen AST See Comment 10 - 45 Units/L [facility] Comment:Credited; Hemolyzed Specimen Blood 07/15/2024 10:2 2 PM CDT 07/15/2024 11:27 PM CDT Elvira Cooper MD LAB BLOOD ORDERABLES Ayanna l Result Performing Organization Address City/[facility] Co de Phone Number [facility] Department [place] [address] * POCT glucose (07/15/2024 7:47 PM CDT) Glucose, POC 147 70 - 199 mg/dL Blood 07/15/2024 7:47 PM CDT 07/15/2024 7:47 PM CDT Ynes Roman MD LAB POCT ORDERABLES - DEV ICE Final Result Performing Organization Address [facility] Co de Phone Number [facility] Department [place] [address] * POCT glucose (07/15/2024 4:08 PM CDT) Glucose, POC 103 70 - 199 mg/dL Blood 07/15/2024 4:08 PM CDT 07/15/2024 4:08 PM CDT Ynes Roman MD LAB POCT ORDERABLES - DEV ICE Final Result Performing Organization Address [facility] Co de Phone Number [facility] Department [place] [address] * (ABNORMAL) POCT glucose (07/15/2024 11:10 AM CDT) Glucose, POC 221(H) 70 - 199 mg/dL Blood 07/15/2024 11:1 0 AM CDT 07/15/2024 11:10 AM CDT us Ynes Roman MD LAB POCT ORDERABLES - DEV ICE Final Result Performing Organization Address City/[facility] [place] [address] * POCT glucose (07/15/2024 8:48 AM CDT) Glucose, POC 160 70 - 199 mg/dL Blood 07/15/2024 8:48 AM CDT 07/15/2024 8:48 AM CDT us Ynes Roman MD LAB POCT ORDERABLES - DEV ICE Final Result Performing Organization Address City/[facility] [place] [address] * POCT glucose (07/15/2024 8:07 AM CDT) Glucose, POC 173 70 - 199 mg/dL Blood 07/15/2024 8:07 AM CDT 07/15/2024 8:07 AM CDT us Ynes Roman MD LAB POCT ORDERABLES - DEV ICE Final Result Performing Organization Address City/[facility] Co de Phone Number [facility] [place] [address] * eGFR (07/14/2024 9:36 PM CDT) eGFR [...] data was last reviewed 2021. Blood 07/14/2024 9:3 6 PM CDT 07/14/2024 10:51 PM CDT us Ynes Roman MD LAB BLOOD ORDERABLES Ayanna vazquez Result [facility] [place] [address] * (ABNORMAL) CBC without differential (07/14/2024 9:36 PM CDT) [facility] WBC 6.7 3.8 - 9.9 K/cumm Hgb 11.2(L) 11.9 - 15.5 g/dL [facility] Hct 34.2(L) 35.6 - 45.5 % [facility] Plt 230 150 - 400 K/cumm [facility] MPV 9.7 9.1 - 12.3 fL [facility] RBC 3.43(L) 3.90 - 5.20 M/cumm [facility] MCV 99.7(H) 81.3 - 96.4 fL [facility] MCH 32.7 27.1 - 33.3 pg [facility] MCHC 32.7 32.3 - 35.7 g/dL [facility] RDW CV 14.1 11.1 - 14.9 % [facility] RDW SD 51.3(H) 35.7 - 48.1 fL [facility] NRBC abs 0.00 0.00 - 0.01 K/cumm [facility] Blood 07/14/2024 9:36 PM CDT 07/14/2024 10:51 PM CDT Elvira Cooper MD LAB BLOOD ORDERABLES Ayanna l Result Performing Organization Address City/[facility]/ZIP Co de Phone Number [facility] Department [place] [address] * Magnesium (07/14/2024 9:36 PM CDT) Magnesium 1.9 1.4 - 2.5 mg/dL Blood 07/14/2024 9:36 PM CDT 07/14/2024 10:48 PM CDT Ynes Roman MD LAB BLOOD ORDERABLES Ayanna l Result [facility] [place] [address] * Creatinine (07/14/2024 9:36 PM CDT) Creatinine 0.80 0.60 - 1.10 mg/dL Blood 07/14/2024 9:36 PM CDT 07/14/2024 10:48 PM CDT Narrative [facility] - 07/14/2024 11:23 PM CDT Baseline prior to rivaroxaban initiation Ynes Roman MD LAB BLOOD ORDERABLES Ayanna l Result [facility] [place] [address] * Bilirubin, direct (07/14/2024 9:36 PM CDT) Pathologist [facility] Bilirubin, direct <0.2 0.1 - 0.3 mg/dL Blood 07/14/2024 9:36 PM CDT 07/14/2024 10:48 PM CDT Elvira Cooper MD LAB BLOOD ORDERABLES Ayanna l Result Performing Organization Address [facility] Co de Phone Number [facility] [place] [address] * (ABNORMAL) Comprehensive metabolic panel (07/14/2024 9:36 PM CDT) [facility] Sodium 140 135 - 145 mmol/L Potassium, pl 3.9 3.3 - 4.9 mmol/L [facility] Chloride 100 97 - 110 mmol/L [facility] CO2 34(H) 22 - 32 mmol/L [facility] Anion gap 6 2 - 15 mmol/L [facility] BUN 18 6 - 25 mg/dL [facility] Creatinine 0.80 0.60 - 1.10 mg/dL [facility] Glucose 85 70 - 199 mg/dL [facility] Comment: Interpretive Data Fasting glucose >/= 126 [...] 2022. Calcium 9.7 8.5 - 10.3 mg/dL [facility] Bilirubin, total 0.3 0.1 - 1.2 mg/dL [facility] Protein, pl 7.5 6.5 - 8.5 g/dL [facility] Albumin 3.4(L) 3.5 - 5.0 g/dL [facility] Alk phos 156(H) 40 - 130 Units/L [facility] ALT 6(L) 7 - 45 Units/L [facility] AST 23 10 - 45 Units/L [facility] Blood 07/14/2024 9:36 PM CDT 07/14/2024 10:48 PM CDT Ynes Roman MD LAB BLOOD ORDERABLES Ayanna l Result Performing Organization Address [facility] Co de Phone Number [facility] Department [place] [address] * POCT glucose (07/14/2024 8:26 PM CDT) Glucose, POC 100 70 - 199 mg/dL Blood 07/14/2024 8:26 PM CDT 07/14/2024 8:26 PM CDT Ynes Roman MD LAB POCT ORDERABLES - DEV ICE Final Result Performing Organization Address [facility] Co de Phone Number [facility] [place] [address] * POCT glucose (07/14/2024 4:14 PM CDT) Glucose, POC 184 70 - 199 mg/dL Blood 07/14/2024 4:14 PM CDT 07/14/2024 4:14 PM CDT Ynes Roman MD LAB POCT ORDERABLES - DEV ICE Final Result [facility] Department [place] [address] * XR Chest 1 View (07/14/2024 3:00 [...] AM CDT 07/14/2024 1:27 PM CDT Narrative [facility] - 07/14/2024 1:58 PM CDT STAT PTT [...] MD LAB BLOOD ORDERABLES Ayanna vazquez Result [facility] Department [place] [address] * Protime-INR (07/14/2024 11:54 AM CDT) PT 12.1 9.7 - 13.0 sec INR 1.12 0.90 - 1.20 [facility] Comment: Interpretive data Oral anticoagulant therapeutic ranges: [...] ORDERABLES Ayanna l Result Performing Organization Address [facility]/ZIP Co de Phone Number [facility] [place] [address] * (ABNORMAL) POCT glucose (07/14/2024 11:26 AM CDT) Glucose, POC 310(H) 70 - 199 mg/dL Blood 07/14/2024 11:2 6 AM CDT 07/14/2024 11:26 AM CDT us Ynes Roman MD LAB POCT ORDERABLES - DEV ICE Final Result Performing Organization Address [facility] Co de Phone Number [facility] Department [place] [address] * (ABNORMAL) POCT glucose (07/14/2024 8:18 AM CDT) Glucose, POC 331(H) 70 - 199 mg/dL Blood 07/14/2024 8:18 AM CDT 07/14/2024 8:18 AM CDT us Ynes Roman MD LAB POCT ORDERABLES - DEV ICE Final Result Performing Organization Address [facility] Co de Phone Number [facility] Department [place] [address] * (ABNORMAL) POCT glucose (07/14/2024 8:17 AM CDT) Glucose, POC 248(H) 70 - 199 mg/dL Blood 07/14/2024 8:17 AM CDT 07/14/2024 8:17 AM CDT us Ynes Roman MD LAB POCT ORDERABLES - DEV ICE Final Result Performing Organization Address City/[facility] Co de Phone Number [facility] Department [place] [address] * (ABNORMAL) CBC without differential (07/13/2024 9:03 PM CDT) [facility] WBC 5.6 3.8 - 9.9 K/cumm Hgb 11.1(L) 11.9 - 15.5 g/dL [facility] Hct 35.5(L) 35.6 - 45.5 % [facility] Plt 242 150 - 400 K/cumm [facility] MPV 9.4 9.1 - 12.3 fL [facility] RBC 3.46(L) 3.90 - 5.20 M/cumm [facility] MCV 102.6(H) 81.3 - 96.4 fL [facility] MCH 32.1 27.1 - 33.3 pg [facility] MCHC 31.3(L) 32.3 - 35.7 g/dL [facility] RDW CV 14.2 11.1 - 14.9 % [facility] RDW SD 52.8(H) 35.7 - 48.1 fL [facility] NRBC abs 0.00 0.00 - 0.01 K/cumm [facility] Blood 07/13/2024 9:03 PM CDT 07/13/2024 9:47 PM CDT us Elvira Cooper MD LAB BLOOD ORDERABLES Ayanna vazquez Result Performing Organization Address City/State/[facility] Co de Phone Number [facility] Department [place] [address] * eGFR (07/13/2024 9:00 PM CDT) [facility] eGFR 83 >=60 mL/min/1. 73 m2 [...] ORDERABLES Ayanna l Result Performing Organization Address [facility] de Phone Number [facility] [place] [address] * Magnesium (07/13/2024 9:00 PM CDT) Magnesium 1.8 1.4 - 2.5 mg/dL Blood 07/13/2024 9:00 PM CDT 07/13/2024 9:45 PM CDT Elvira Cooper MD LAB BLOOD ORDERABLES Ayanna l Result Performing Organization Address City/[facility] Co de Phone Number [facility] Department [place] [address] * (ABNORMAL) Comprehensive metabolic panel (07/13/2024 9:00 PM CDT) Sodium 137 135 - 145 mmol/L Potassium, pl 4.4 3.3 - 4.9 mmol/L [facility] Chloride 99 97 - 110 mmol/L [facility] CO2 30 22 - 32 mmol/L [facility] Anion gap 8 2 - 15 mmol/L [facility] BUN 13 6 - 25 mg/dL [facility] Creatinine 0.80 0.60 - 1.10 mg/dL [facility] Glucose 310(H) 70 - 199 mg/dL [facility] Comment: Interpretive Data Fasting glucose >/= 126 [...] 2022. Calcium 9.4 8.5 - 10.3 mg/dL [facility] Bilirubin, total 0.3 0.1 - 1.2 mg/dL [facility] Protein, pl 7.6 6.5 - 8.5 g/dL [facility] Albumin 3.5 3.5 - 5.0 g/dL [facility] Alk phos 158(H) 40 - 130 Units/L [facility] ALT 12 7 - 45 Units/L [facility] AST 46(H) 10 - 45 Units/L [facility] Blood 07/13/2024 9:00 PM CDT 07/13/2024 9:45 PM CDT us Elvira Cooper MD LAB BLOOD ORDERABLES Ayanna vazquez Result [facility] [place] [address] * POCT glucose (07/13/2024 7:58 PM CDT) Glucose, POC 186 70 - 199 mg/dL Blood 07/13/2024 7:58 PM CDT 07/13/2024 7:58 PM CDT us Elvira Cooper MD LAB POCT ORDERABLES - DEV ICE Final Result [facility] Department [place] [address] * (ABNORMAL) Aerobic culture and gram stain [...] still be effective in some patients. (.) [facility] Organism STAPHYLOCOCCUS AUREUS [facility] Hardware (Lead) 07/13/2024 5 :34 PM CDT 07/13/2024 6:47 PM CDT Narrative [facility] - 07/18/2024 12:57 PM CDT Ventricular lead tip Testing performed by [facility] ([phone]) Specimens submitted from normally sterile body sites [...] L ORDERABLES Final Result Performing Organization Address [facility] Co de Phone Number [facility] [place] [address] * Aerobic culture and gram stain Hardware Lead (07/13/2024 5:34 PM CDT) Direct Specimen Exam Stain: Few polymorphonuclear leukocytes seen. No organisms seen. Report Final Report: No growth [facility] Hardware (Lead) 07/13/2024 5 :34 PM CDT 07/13/2024 6:45 PM CDT Narrative [facility] - 07/18/2024 12:57 PM CDT Atrial lead tip Testing performed by [facility] ([phone]) Specimens submitted from normally sterile body sites [...] L ORDERABLES Final Result Performing Organization Address [facility] de Phone Number [facility] [place] [address] * [place] Fluoroscopy < 1 Hour (07/13/2024 5:30 PM CDT) Narrative [facility] - 07/13/2024 5:31 PM CDT The images from this study are not interpreted by Radiology. ??Please refer to the physician's procedure / OR operative note. Robin Watkins MD IMG FLUOROSCOPY PROC EDURES Final Result Performing Organization Address [facility] Co de Phone Number [facility] * (ABNORMAL) POC Blood Gas and Chemistries, Arterial - (07/13/2024 5:18 PM CDT) pH, Art POC 7.44 7.35 - 7.45 pCO2, Art POC 41 35 - 45 mmHg [facility] pO2, Art POC 265(H) 83 - 108 mmHg [facility] Na, POC 140 135 - 145 mmol/L [facility] K POC 3.4 3.3 - 4.9 mmol/L [facility] Comment: Interpretive Data Not all point of care methods assess for hemolysis. Confirm with instrument and retest K+ if not consistent with clinical signs and symptoms. Current Interpretive Data was last revised on 2024. Cl, POC 104 97 - 110 mmol/L [facility] Ionized Ca, POC 4.98 4.50 - 5.10 mg/dL [facility] Glucose, POC 82 70 - 199 mg/dL [facility] Lactate, POC 1.2 0.7 - 2.2 mmol/L [facility] SO2 (hugo) arterial 100(H) 90 - 95 % [facility] Base excess, POC 3.3 mmol/L [facility] HCO3, Art POC 28 20 - 30 mmol/L [facility] Hct, POC 33.0(L) 36.3 - 45.3 % [facility] Total Hb, POC 11.1(L) 11.9 - 15.5 g/dL [facility] Blood 07/13/2024 5:18 PM CDT 07/13/2024 5:18 PM CDT us Elvira Cooper MD LAB POCT ORDERABLES - DEV ICE Final Result [facility] [place] [address] * [place] AN PROCEDURE PLACEHOLDER (07/13/2024 5:15 PM CDT) [...] code: CHANCE placement and diagnostic exam, non-congenital (36978) ICD code(s) for medical necessity: I33.0 - [...] inferior: hypokinetic 16- Apical septal: hypokinetic 17- [place]: hypokinetic Valves: Aortic Valve: Annulus: normal Leaflet [...] Units (07/13/2024 4:37 PM CDT) Product code [id number] Unit Number [id number] 7-E [facility] Product Blood Type OPOS [facility] Dispense Status RETURNED [facility] Product code [id number] [facility] Unit Number [id number] 7-K [facility] Product Blood Type OPOS [facility] Dispense Status RETURNED [facility] Blood 07/13/2024 4:37 PM CDT 07/13/2024 4:37 PM CDT Narrative [facility] - 07/13/2024 6:38 PM CDT Are special requirements needed? (All products are leukoreduced and CMV- safe)- >No Date required:-[id number] LRRBC # of [id number] Reasons:-Intra-op transfusion} us Jolanta Abdi MD BLOOD BANK PRODUCT ORDERAB LES Final Result [facility] Department [place] [address] * Arterial Line (07/13/2024 4:34 PM CDT) [...] patient tolerated procedure well with no complications Jolanta Abdi MD ANESTHESIA ORDERABLES Ayanna l Result * CHANCE Add-On For OR (07/13/2024 3:38 PM CDT) Narrative [facility] PROSOLV_CARDIOREPORT_CONS SCIMAGE - 07/13/2024 3:38 PM CDT Procedure Auto Finalized by Rule: BW CV CHANCE DURING CASE OR Please see the Anesthesiologist's Procedure Note for the results. Jolanta Abdi MD CV ECHO PROCEDURES Final R esult Performing Organization Address [facility] Co de Phone Number [facility] PROSOLV_CARDIOREPORT_CONS SCIMAGE * Type and screen (07/13/2024 3:09 PM CDT) [facility] ABO Rh O Positive Marguerite, indirect Negative [facility] Blood 07/13/2024 3:09 PM CDT 07/13/2024 3:18 PM CDT Narrative [facility] - 07/13/2024 4:24 PM CDT Has the patient had Daratumumab or Isatuximab in the past 6 months?->Unknown Stepan Love MD LAB BLOOD BANK TEST ORDER DONATO Final Result Performing Organization Address [facility] de Phone Number [facility] [place] [address] * POCT glucose (07/13/2024 3:01 PM CDT) Pathologist [facility] Glucose, POC 70 70 - 199 mg/dL Blood 07/13/2024 3:01 PM CDT 07/13/2024 3:01 PM CDT Elvira Cooper MD LAB POCT ORDERABLES - DEV ICE Final Result Performing Organization Address [facility] Co de Phone Number [facility] Department [place] [address] * POCT glucose (07/13/2024 11:45 AM CDT) Glucose, POC 108 70 - 199 mg/dL Blood 07/13/2024 11:4 5 AM CDT 07/13/2024 11:45 AM CDT Elvira Cooper MD LAB POCT ORDERABLES - DEV ICE Final Result Performing Organization Address [facility] Co de Phone Number [facility] [place] [address] * POCT glucose (07/13/2024 8:00 AM CDT) Glucose, POC 144 70 - 199 mg/dL Blood 07/13/2024 8:00 AM CDT 07/13/2024 8:00 AM CDT Elvira Cooper MD LAB POCT ORDERABLES - DEV ICE Final Result Performing Organization Address [facility] de Phone Number [facility] [place] [address] * eGFR (07/13/2024 12:58 AM CDT) eGFR [...] ORDERABLES Ayanna l Result Performing Organization Address City/[facility] Co de Phone Number [facility] [place] [address] * (ABNORMAL) aPTT (07/13/2024 12:58 AM CDT) aPTT 60(H) 28 - 38 sec Comment: Interpretive Data Heparin therapeutic range: 66.0 - 100.0 seconds. Range based on correlation with therapeutic heparin activity range of 0.3 - 0.7 Units/mL. Current interpretive data was last revised on 2023. Blood 07/13/2024 12:5 8 AM CDT 07/13/2024 5:08 AM CDT us Becca Wilcox MD LAB BLOOD ORDERABLES Final Result Performing Organization Address [facility] Co de Phone Number [facility] Department [place] [address] * (ABNORMAL) CBC without differential (07/13/2024 12:58 AM CDT) WBC 5.0 3.8 - 9.9 K/cumm Hgb 10.7(L) 11.9 - 15.5 g/dL [facility] Hct 33.9(L) 35.6 - 45.5 % [facility] Plt 280 150 - 400 K/cumm [facility] MPV 10.5 9.1 - 12.3 fL [facility] RBC 3.35(L) 3.90 - 5.20 M/cumm [facility] MCV 101.2(H) 81.3 - 96.4 fL [facility] MCH 31.9 27.1 - 33.3 pg [facility] MCHC 31.6(L) 32.3 - 35.7 g/dL [facility] RDW CV 14.3 11.1 - 14.9 % [facility] RDW SD 53.1(H) 35.7 - 48.1 fL [facility] NRBC abs 0.00 0.00 - 0.01 K/cumm [facility] Blood 07/13/2024 12:5 8 AM CDT 07/13/2024 4:34 AM CDT Elvira Cooper MD LAB BLOOD ORDERABLES Ayanna vazquez Result [facility] Department [place] [address] * (ABNORMAL) Comprehensive metabolic panel (07/13/2024 12:58 AM CDT) Sodium 136 135 - 145 mmol/L Potassium, pl 4.5 3.3 - 4.9 mmol/L [facility] Chloride 96(L) 97 - 110 mmol/L [facility] CO2 29 22 - 32 mmol/L [facility] Anion gap 11 2 - 15 mmol/L [facility] BUN 14 6 - 25 mg/dL [facility] Creatinine 0.81 0.60 - 1.10 mg/dL [facility] Glucose 199 70 - 199 mg/dL [facility] Comment: Interpretive Data Fasting glucose >/= 126 [...] - 1.2 mg/dL [facility] Protein, pl 7.5 6.5 - 8.5 g/dL [facility] Albumin 3.4(L) 3.5 - 5.0 g/dL [facility] Alk phos 147(H) 40 - 130 Units/L [facility] ALT 9 7 - 45 Units/L [facility] AST 30 10 - 45 Units/L [facility] Blood 07/13/2024 12:5 8 AM CDT 07/13/2024 4:34 AM CDT Elvira Cooper MD LAB BLOOD ORDERABLES Ayanna l Result [facility] [place] [address] * (ABNORMAL) POCT glucose (07/12/2024 11:01 PM CDT) Glucose, POC 365(H) 70 - 199 mg/dL Blood 07/12/2024 11:0 1 PM CDT 07/12/2024 11:01 PM CDT Elvira Cooper MD LAB POCT ORDERABLES - DEV ICE Final Result [facility] [place] [address] * POCT glucose (07/12/2024 8:13 AM CDT) Glucose, POC 133 70 - 199 mg/dL Blood 07/12/2024 8:13 AM CDT 07/12/2024 8:13 AM CDT Elvira Cooper MD LAB POCT ORDERABLES - DEV ICE Final Result Performing Organization Address [facility] Co de Phone Number [facility] Department [place] [address] * (ABNORMAL) aPTT (07/12/2024 4:17 AM CDT) aPTT 133(H) 28 - 38 sec Comment: No clot detected in sample Repeated and verified - [id number] - 07/12/24, 5:57 AM Interpretive Data Heparin therapeutic range: 66.0 - 100.0 seconds. Range based on correlation with therapeutic heparin activity range of 0.3 - 0.7 Units/mL. Current interpretive data was last revised on 2023. Blood 07/12/2024 4:17 AM CDT 07/12/2024 5:30 AM CDT Narrative [facility] - 07/12/2024 5:57 AM CDT STAT PTT [...] ORDERABLES Ayanna l Result Performing Organization Address [facility] Co de Phone Number [facility] Department [place] [address] * eGFR (07/11/2024 9:19 PM CDT) eGFR [...] LAB BLOOD ORDERABLES Ayanna vazquez Result [facility] Department [place] [address] * (ABNORMAL) aPTT (07/11/2024 9:19 PM CDT) aPTT 51(H) 28 - 38 sec Comment: Interpretive Data Heparin therapeutic range: 66.0 - 100.0 seconds. Range based on correlation with therapeutic heparin activity range of 0.3 - 0.7 Units/mL. Current interpretive data was last revised on 2023. Blood 07/11/2024 9:19 PM CDT 07/11/2024 9:56 PM CDT Narrative [facility] - 07/11/2024 10:06 PM CDT STAT PTT [...] MD LAB BLOOD ORDERABLES Ayanna vazquez Result [facility] Department [place] [address] * (ABNORMAL) CBC without differential (07/11/2024 9:19 PM CDT) WBC 4.7 3.8 - 9.9 K/cumm Hgb 10.3(L) 11.9 - 15.5 g/dL [facility] Hct 33.1(L) 35.6 - 45.5 % [facility] Plt 255 150 - 400 K/cumm [facility] MPV 9.5 9.1 - 12.3 fL [facility] RBC 3.20(L) 3.90 - 5.20 M/cumm [facility] MCV 103.4(H) 81.3 - 96.4 fL [facility] MCH 32.2 27.1 - 33.3 pg [facility] MCHC 31.1(L) 32.3 - 35.7 g/dL [facility] RDW CV 14.3 11.1 - 14.9 % [facility] RDW SD 54.3(H) 35.7 - 48.1 fL [facility] NRBC abs 0.00 0.00 - 0.01 K/cumm [facility] Blood 07/11/2024 9:19 PM CDT 07/11/2024 9:48 PM CDT Elvira Cooper MD LAB BLOOD ORDERABLES Ayanna l Result Performing Organization Address City/[facility]/ZIP Co de Phone Number [facility] Department [place] [address] * Magnesium (07/11/2024 9:19 PM CDT) Pathologist [facility] Magnesium 1.8 1.4 - 2.5 mg/dL Blood 07/11/2024 9:19 PM CDT 07/11/2024 9:48 PM CDT us Lynn Martinez MD LAB BLOOD ORDERABLES Fin al Result Performing Organization Address [facility] de Phone Number [facility] [place] [address] * (ABNORMAL) Comprehensive metabolic panel (07/11/2024 9:19 PM CDT) Pathologist [facility] Sodium 136 135 - 145 mmol/L Potassium, pl 3.9 3.3 - 4.9 mmol/L [facility] Chloride 100 97 - 110 mmol/L [facility] CO2 27 22 - 32 mmol/L [facility] Anion gap 9 2 - 15 mmol/L [facility] BUN 15 6 - 25 mg/dL [facility] Creatinine 0.92 0.60 - 1.10 mg/dL [facility] Glucose 124 70 - 199 mg/dL [facility] Comment: Interpretive Data Fasting glucose >/= 126 [...] 6.5 - 8.5 g/dL [facility] Albumin 3.2(L) 3.5 - 5.0 g/dL [facility] Alk phos 155(H) 40 - 130 Units/L [facility] ALT 10 7 - 45 Units/L [facility] AST 24 10 - 45 Units/L [facility] Blood 07/11/2024 9:19 PM CDT 07/11/2024 9:48 PM CDT Elvira Cooper MD LAB BLOOD ORDERABLES Ayanna l Result [facility] [place] [address] * POCT glucose (07/11/2024 8:31 PM CDT) Glucose, POC 181 70 - 199 mg/dL Blood 07/11/2024 8:31 PM CDT 07/11/2024 8:31 PM CDT Elvira Cooper MD LAB POCT ORDERABLES - DEV ICE Final Result [facility] [place] [address] * (ABNORMAL) POCT glucose (07/11/2024 5:14 PM CDT) Glucose, POC 209(H) 70 - 199 mg/dL Blood 07/11/2024 5:14 PM CDT 07/11/2024 5:14 PM CDT us Elvira Cooper MD LAB POCT ORDERABLES - DEV ICE Final Result [facility] Department [place] [address] * XR Chest PA Lateral 2 Views [...] (ABNORMAL) POCT glucose (07/11/2024 11:36 AM CDT) Glucose, POC 275(H) 70 - 199 mg/dL Blood 07/11/2024 11:3 6 AM CDT 07/11/2024 11:36 AM CDT Elvira Cooper MD LAB POCT ORDERABLES - DEV ICE Final Result Performing Organization Address City/[facility]/ZIP Co de Phone Number [facility] [place] [address] * (ABNORMAL) POCT glucose (07/11/2024 7:27 AM CDT) Glucose, POC 238(H) 70 - 199 mg/dL Blood 07/11/2024 7:27 AM CDT 07/11/2024 7:27 AM CDT Elvira Cooper MD LAB POCT ORDERABLES - DEV ICE Final Result Performing Organization Address City/[facility] Co de Phone Number [facility] Department [place] [address] * eGFR (07/10/2024 11:24 PM CDT) eGFR [...] MD LAB BLOOD ORDERABLES Ayanna vazquez Result [facility] [place] [address] * (ABNORMAL) aPTT (07/10/2024 11:24 PM CDT) [...] ORDERABLES Ayanna vazquez Result Performing Organization Address [facility]/ZIP Co de Phone Number [facility] [place] [address] * (ABNORMAL) CBC without differential (07/10/2024 11:24 PM CDT) WBC 5.9 3.8 - 9.9 K/cumm Hgb 11.3(L) 11.9 - 15.5 g/dL [facility] Hct 35.8 35.6 - 45.5 % [facility] Plt 352 150 - 400 K/cumm [facility] MPV 9.5 9.1 - 12.3 fL [facility] RBC 3.53(L) 3.90 - 5.20 M/cumm [facility] MCV 101.4(H) 81.3 - 96.4 fL [facility] MCH 32.0 27.1 - 33.3 pg [facility] MCHC 31.6(L) 32.3 - 35.7 g/dL [facility] RDW CV 14.6 11.1 - 14.9 % [facility] RDW SD 53.9(H) 35.7 - 48.1 fL [facility] NRBC abs 0.00 0.00 - 0.01 K/cumm [facility] Blood 07/10/2024 11:2 4 PM CDT 07/11/2024 12:10 AM CDT Result [facility] Elvira Cooper MD LAB BLOOD ORDERABLES Ayanna l Result [facility] [place] [address] * Magnesium (07/10/2024 11:24 PM CDT) Magnesium 1.9 1.4 - 2.5 mg/dL Blood 07/10/2024 11:2 4 PM CDT 07/11/2024 12:11 AM CDT Elvira Cooper MD LAB BLOOD ORDERABLES Ayanna george Result [facility] Department [place] [address] * (ABNORMAL) Comprehensive metabolic panel (07/10/2024 11:24 PM CDT) Pathologist [facility] Sodium 134(L) 135 - 145 mmol/L Potassium, pl 4.7 3.3 - 4.9 mmol/L [facility] Chloride 99 97 - 110 mmol/L [facility] CO2 26 22 - 32 mmol/L [facility] Anion gap 9 2 - 15 mmol/L [facility] BUN 19 6 - 25 mg/dL [facility] Creatinine 0.94 0.60 - 1.10 mg/dL [facility] Glucose 351(H) 70 - 199 mg/dL [facility] Comment: Interpretive Data Fasting glucose >/= 126 [...] 2022. Calcium 9.4 8.5 - 10.3 mg/dL [facility] Bilirubin, total 0.4 0.1 - 1.2 mg/dL [facility] Protein, pl 8.0 6.5 - 8.5 g/dL [facility] Albumin 3.6 3.5 - 5.0 g/dL [facility] Alk phos 176(H) 40 - 130 Units/L [facility] ALT 8 7 - 45 Units/L [facility] AST 28 10 - 45 Units/L [facility] Blood 07/10/2024 11:2 4 PM CDT 07/11/2024 12:11 AM CDT Elvira Cooper MD LAB BLOOD ORDERABLES Ayanna l Result Performing Organization Address [facility] de Phone Number [facility] [place] [address] * (ABNORMAL) aPTT (07/10/2024 4:59 PM CDT) [facility] aPTT 92(H) 28 - 38 sec Comment: Interpretive Data Heparin therapeutic range: 66.0 - 100.0 seconds. Range based on correlation with therapeutic heparin activity range of 0.3 - 0.7 Units/mL. Current interpretive data was last revised on 2023. Blood 07/10/2024 4:59 PM CDT 07/10/2024 5:30 PM CDT Narrative [facility] - 07/10/2024 5:38 PM CDT STAT PTT [...] ORDERABLES Ayanna l Result Performing Organization Address [facility] Co de Phone Number [facility] [place] [address] * (ABNORMAL) POCT glucose (07/10/2024 4:53 PM CDT) Glucose, POC 290(H) 70 - 199 mg/dL Blood 07/10/2024 4:53 PM CDT 07/10/2024 4:53 PM CDT us Elvira Cooper MD LAB POCT ORDERABLES - DEV ICE Final Result [facility] Department [place] [address] * Lipid panel (07/10/2024 2:21 PM CDT) Pathologist [facility] Cholesterol 180 30 - 199 mg/dL Comment: [...] 2018. Triglycerides See Comment <=149 mg/dL [facility] Comment: Credited; Hemolyzed Specimen Interpretive Data Ages [...] on 2018. HDL 49 >=40 mg/dL [facility] Comment: Interpretive Data Ages < or = [...] on 2018. LDL, calculated See Comment <=129 [facility] Comment: Unable to calculate Interpretive Data Ages [...] revised on 2024. Non-HDL Cholesterol 131 mg/dL [facility] Comment: Interpretive Data Ages < or = [...] last revised on 2018. Chol/HDL ratio 4 [facility] Blood 07/10/2024 2:21 PM CDT 07/10/2024 3:26 PM CDT Result [facility] Elvira Cooper MD LAB BLOOD ORDERABLES Edit ed Result - Final [facility] Department [place] [address] * (ABNORMAL) POCT glucose (07/10/2024 2:15 PM CDT) [facility] Signature Glucose, POC 210(H) 70 - 199 mg/dL Blood 07/10/2024 2:15 PM CDT 07/10/2024 2:15 PM CDT Elvira Cooper MD LAB POCT ORDERABLES - DEV ICE Final Result [facility] Department [place] [address] * TRANSESOPHAGEAL ECHO (CHANCE) W DOPPLER/CF WO CONTRAST (07/10/2024 12:29 PM CDT) Anatomical Region Laterality Modality Echocardiography 07/10/2024 10:0 0 AM CDT Narrative 07/10/2024 12:46 PM CDT Patient name: Loretta Penn Date of test: 07/10/2024 Date of : 1960 (F) Hospital #: [id number] ?Location: [facility] Cardiac Diagnostic Lab Interpreted by: Da Ayala MD Fpga Engineer: Emily King MD RN: Reason for Test: [...] 2=Hypo 3=Akinetic 4=Dyskin. 5=Aneurysm 0=Not visualized) Short Stanton-Gastric:=2 S=2 I=2 P=2 L=2 A=2 Long Stanton-Gastric:BP=2 BA=2 MP=2 MA=2 AP=2 AA=2 Chamber Dimensions: RA: increased LA: increased, 5 cm RV: Normal LV: mildly dilated LV function: Moderate global left ventricular dysfunction. RV function: Normal Pericardium: No pericardial effusion seen Diastolic function: not assessed Atrial Septum: Normal Wall Thickness: RV: Normal LV: Normal Sedation/Tolerance: ??Sedation: CHANCE performed with monitored anesthesia care ??[employer] [place] Admin: ?propofol 490 mg ??Tolerance: Patient tolerated [...] - 12:46:57 by Da Ayala MD ?? Cinder Pit Worker: Emily King By signing this report, the attending wheat buyer certifies that he or she has personally supervised and interpreted the echocardiogram and has reviewed and or edited and agrees with the written comments contained within the report. Procedure Note Da Ayala MD - 07/10/2024 Patient name: Loretta Penn Date of test: 07/10/2024 Date of : 1960 () [facility] #: 0 Location: [facility] Cardiac Diagnostic Lab Interpreted by: Da Ayala MD Fpga Engineer: Emily King MD RN: Reason for Test: [...] 2=Hypo 3=Akinetic 4=Dyskin. 5=Aneurysm 0=Not visualized) Short Stanton-Gastric:=2 S=2 I=2 P=2 L=2 A=2 Long Stanton-Gastric:BP=2 BA=2 MP=2 MA=2 AP=2 AA=2 Chamber Dimensions: [...] 07/10/2024 - 12:46:57 by Da Ayala MD Cinder Pit Worker: Emily King By signing this report, the attending wheat buyer certifies that he or she has personally supervised and interpreted the echocardiogram and has reviewed and or edited and agrees with the written comments contained within the report. us Elvira Cooper MD CV ECHO PROCEDURES Final Result * POCT glucose (07/10/2024 9:49 AM CDT) [facility] Glucose, POC 142 70 - 199 mg/dL Blood 07/10/2024 9:49 AM CDT 07/10/2024 9:49 AM CDT Elvira Cooper MD LAB POCT ORDERABLES - DEV ICE Final Result [facility] [place] [address] * POCT glucose (07/10/2024 7:45 AM CDT) Glucose, POC 144 70 - 199 mg/dL Blood 07/10/2024 7:45 AM CDT 07/10/2024 7:45 AM CDT Elvira Cooper MD LAB POCT ORDERABLES - DEV ICE Final Result Performing Organization Address [facility] de Phone Number [facility] [place] [address] * (ABNORMAL) aPTT (07/10/2024 6:43 AM CDT) aPTT 119(H) 28 - 38 sec Comment: Interpretive Data Heparin therapeutic range: 66.0 - 100.0 seconds. Range based on correlation with therapeutic heparin activity range of 0.3 - 0.7 Units/mL. Current interpretive data was last revised on 2023. Blood 07/10/2024 6:43 AM CDT 07/10/2024 7:21 AM CDT Narrative [facility] - 07/10/2024 7:53 AM CDT STAT PTT [...] ORDERABLES Ayanna l Result Performing Organization Address City/[facility] Co de Phone Number [facility] Department [place] [address] * eGFR (07/09/2024 11:48 PM CDT) eGFR [...] ORDERABLES Ayanna l Result Performing Organization Address City/[facility] Co de Phone Number [facility] Department [place] [address] * (ABNORMAL) aPTT (07/09/2024 11:48 PM CDT) [facility] aPTT 61(H) 28 - 38 sec Comment: Interpretive Data Heparin therapeutic range: 66.0 - 100.0 seconds. Range based on correlation with therapeutic heparin activity range of 0.3 - 0.7 Units/mL. Current interpretive data was last revised on 2023. Blood 07/09/2024 11:4 8 PM CDT 07/10/2024 12:15 AM CDT us Elvira Cooper MD LAB BLOOD ORDERABLES Ayanna vazquez Result [facility] Department [place] [address] * (ABNORMAL) CBC without differential (07/09/2024 11:48 PM CDT) [facility] WBC 7.6 3.8 - 9.9 K/cumm Hgb 10.8(L) 11.9 - 15.5 g/dL [facility] Hct 33.4(L) 35.6 - 45.5 % [facility] Plt 333 150 - 400 K/cumm [facility] MPV 9.8 9.1 - 12.3 fL [facility] RBC 3.30(L) 3.90 - 5.20 M/cumm [facility] MCV 101.2(H) 81.3 - 96.4 fL [facility] MCH 32.7 27.1 - 33.3 pg [facility] MCHC 32.3 32.3 - 35.7 g/dL [facility] RDW CV 14.2 11.1 - 14.9 % [facility] RDW SD 52.9(H) 35.7 - 48.1 fL [facility] NRBC abs 0.00 0.00 - 0.01 K/cumm [facility] Blood 07/09/2024 11:4 8 PM CDT 07/10/2024 12:15 AM CDT us Elvira Cooper MD LAB BLOOD ORDERABLES Ayanna george Result [facility] Department [place] [address] * (ABNORMAL) Lipid panel (07/09/2024 11:48 PM [...] on 2018. Triglycerides 153(H) <=149 mg/dL [facility] Comment: Interpretive Data Ages < or = [...] revised on 2018. HDL 40 >=40 mg/dL [facility] Comment: Interpretive Data Ages < or = [...] on 2018. LDL, calculated 77 <=129 mg/dL [facility] Comment: Interpretive Data Ages < or = [...] revised on 2024. Non-HDL Cholesterol 104 mg/dL [facility] Comment: Interpretive Data Ages < or = [...] last revised on 2018. Chol/HDL ratio 4 [facility] Blood 07/09/2024 11:4 8 PM CDT 07/10/2024 12:15 AM CDT us Elvira Cooper MD LAB BLOOD ORDERABLES Ayanna vazquez Result [facility] Department [place] [address] * (ABNORMAL) Comprehensive metabolic panel (07/09/2024 11:48 PM CDT) Sodium 136 135 - 145 mmol/L Potassium, pl 3.5 3.3 - 4.9 mmol/L [facility] Chloride 99 97 - 110 mmol/L [facility] CO2 33(H) 22 - 32 mmol/L [facility] Anion gap 4 2 - 15 mmol/L [facility] BUN 16 6 - 25 mg/dL [facility] Creatinine 1.04 0.60 - 1.10 mg/dL [facility] Glucose 156 70 - 199 mg/dL [facility] Comment: Interpretive Data Fasting glucose >/= 126 [...] Calcium 9.1 8.5 - 10.3 mg/dL [facility] Bilirubin, total 0.4 0.1 - 1.2 mg/dL [facility] Protein, pl 7.2 6.5 - 8.5 g/dL [facility] Albumin 3.3(L) 3.5 - 5.0 g/dL [facility] Alk phos 162(H) 40 - 130 Units/L [facility] ALT 6(L) 7 - 45 Units/L [facility] AST 26 10 - 45 Units/L [facility] Blood 07/09/2024 11:4 8 PM CDT 07/10/2024 12:15 AM CDT Elvira Cooper MD LAB BLOOD ORDERABLES Ayanna l Result [facility] [place] [address] * POCT glucose (07/09/2024 10:46 PM CDT) [facility] Glucose, POC 197 70 - 199 mg/dL Blood 07/09/2024 10:4 6 PM CDT 07/09/2024 10:46 PM CDT Elvira Cooper MD LAB POCT ORDERABLES - DEV ICE Final Result Performing Organization Address City/[facility]/ZIP Co de Phone Number [facility] Department [place] [address] * (ABNORMAL) POCT glucose (07/09/2024 8:33 PM CDT) Glucose, POC 291(H) 70 - 199 mg/dL Blood 07/09/2024 8:33 PM CDT 07/09/2024 8:33 PM CDT Elvira Cooper MD LAB POCT ORDERABLES - DEV ICE Final Result Performing Organization Address [facility] Co de Phone Number [facility] [place] [address] * (ABNORMAL) POCT glucose (07/09/2024 4:45 PM CDT) Glucose, POC 296(H) 70 - 199 mg/dL Blood 07/09/2024 4:45 PM CDT 07/09/2024 4:45 PM CDT Result [facility] Elvira Cooper MD LAB POCT ORDERABLES - DEV ICE Final Result Performing Organization Address [facility] Phone Number [facility] [place] [address] * (ABNORMAL) aPTT (07/09/2024 4:27 PM CDT) [...] PM CDT 07/09/2024 4:46 PM CDT Result [facility] Elvira Cooper MD LAB BLOOD ORDERABLES Ayanna l Result Performing Organization Address [facility] Co de Phone Number [facility] [place] [address] * POCT glucose (07/09/2024 11:36 AM CDT) Glucose, POC 195 70 - 199 mg/dL Blood 07/09/2024 11:3 6 AM CDT 07/09/2024 11:36 AM CDT Elvira Cooper MD LAB POCT ORDERABLES - [place] [address] * POCT glucose (07/09/2024 7:56 AM CDT) Glucose, POC 167 70 - 199 mg/dL Blood 07/09/2024 7:56 AM CDT 07/09/2024 7:56 AM CDT Elvira Cooper MD LAB POCT ORDERABLES - DEV ICE Final Result Performing Organization Address City/[facility]/[place] [address] * Potassium, whole blood (07/09/2024 7:11 AM CDT) [facility] Potassium, bld 3.7 3.3 - 4.9 mmol/L Blood 07/09/2024 7:11 AM CDT 07/09/2024 7:43 AM CDT Elvira Cooper MD LAB BLOOD ORDERABLES Ayanna l Result Performing Organization Address City/[facility]/[place] [address] * (ABNORMAL) aPTT (07/09/2024 4:59 AM CDT) [facility] aPTT 64(H) 28 - 38 sec Comment: Interpretive Data Heparin therapeutic range: 66.0 - 100.0 seconds. Range based on correlation with therapeutic heparin activity range of 0.3 - 0.7 Units/mL. Current interpretive data was last revised on 2023. Blood 07/09/2024 4:59 AM CDT 07/09/2024 5:43 AM CDT Narrative [facility] - 07/09/2024 6:09 AM CDT STAT PTT [...] MD LAB BLOOD ORDERABLES Ayanna vazquez Result [facility] Department [place] [address] * eGFR (07/08/2024 9:48 PM CDT) [facility] eGFR 73 >=60 mL/min/1. 73 m2 Comment: [...] ORDERABLES Ayanna l Result Performing Organization Address [facility] Co de Phone Number [facility] Department [place] [address] * HIV 1/2 Antibody plus p24 Antigen Blood (07/08/2024 9:48 PM CDT) [facility] HIV 1/2 ab + p24 ag Nonreactive [...] L ORDERABLES Final Result Performing Organization Address [facility] de Phone Number [facility] Department [place] [address] * (ABNORMAL) aPTT (07/08/2024 9:48 PM CDT) [facility] aPTT 63(H) 28 - 38 sec Comment: Interpretive Data Heparin therapeutic range: 66.0 - 100.0 seconds. Range based on correlation with therapeutic heparin activity range of 0.3 - 0.7 Units/mL. Current interpretive data was last revised on 2023. Blood 07/08/2024 9:48 PM CDT 07/08/2024 10:21 PM CDT Elvira Cooper MD LAB BLOOD ORDERABLES Ayanna l Result Performing Organization Address City/[facility] Co de Phone Number [facility] Department [place] [address] * (ABNORMAL) CBC without differential (07/08/2024 9:48 PM CDT) [facility] WBC 6.1 3.8 - 9.9 K/cumm Hgb 10.8(L) 11.9 - 15.5 g/dL [facility] Hct 33.9(L) 35.6 - 45.5 % [facility] Plt 328 150 - 400 K/cumm [facility] MPV 10.4 9.1 - 12.3 fL [facility] RBC 3.40(L) 3.90 - 5.20 M/cumm [facility] MCV 99.7(H) 81.3 - 96.4 fL [facility] MCH 31.8 27.1 - 33.3 pg [facility] MCHC 31.9(L) 32.3 - 35.7 g/dL [facility] RDW CV 14.1 11.1 - 14.9 % [facility] RDW SD 51.6(H) 35.7 - 48.1 fL [facility] NRBC abs 0.00 0.00 - 0.01 K/cumm [facility] Blood 07/08/2024 9:48 PM CDT 07/08/2024 10:18 PM CDT Elvira Cooper MD LAB BLOOD ORDERABLES Ayanna l Result [facility] Department [place] [address] * (ABNORMAL) Comprehensive metabolic panel (07/08/2024 9:48 PM CDT) Sodium 135 135 - 145 mmol/L Potassium, pl 4.4 3.3 - 4.9 mmol/L [facility] Comment:Hemolyzed; Potassium value may be falsely elevated by as much as 0.6-1.0 mmol/L. Suggest redraw and reanalysis. Chloride 100 97 - 110 mmol/L [facility] CO2 27 22 - 32 mmol/L [facility] Anion gap 8 2 - 15 mmol/L [facility] BUN 18 6 - 25 mg/dL [facility] Creatinine 0.89 0.60 - 1.10 mg/dL [facility] Glucose 186 70 - 199 mg/dL [facility] Comment: Interpretive Data Fasting glucose >/= 126 [...] 2022. Calcium 9.2 8.5 - 10.3 mg/dL [facility] Bilirubin, total 0.3 0.1 - 1.2 mg/dL [facility] Protein, pl 7.2 6.5 - 8.5 g/dL [facility] Albumin 3.1(L) 3.5 - 5.0 g/dL [facility] Alk phos 171(H) 40 - 130 Units/L [facility] ALT 11 7 - 45 Units/L [facility] AST 35 10 - 45 Units/L [facility] Comment:Hemolyzed; result ma y be falsely elevated Blood 07/08/2024 9:48 PM CDT 07/08/2024 10:18 PM CDT Elvira Cooper MD LAB BLOOD ORDERABLES Ayanna l Result Performing Organization Address City/[facility] Co de Phone Number [facility] [place] [address] * POCT glucose (07/08/2024 8:16 PM CDT) Glucose, POC 190 70 - 199 mg/dL Blood 07/08/2024 8:16 PM CDT 07/08/2024 8:16 PM CDT Elvira Cooper MD LAB POCT ORDERABLES - DEV ICE Final Result Performing Organization Address [facility] Co de Phone Number [facility] [place] [address] * POCT glucose (07/08/2024 3:44 PM CDT) Glucose, POC 195 70 - 199 mg/dL Blood 07/08/2024 3:44 PM CDT 07/08/2024 3:44 PM CDT Elvira Cooper MD LAB POCT ORDERABLES - DEV ICE Final Result Performing Organization Address [facility] [facility] Co de Phone Number [facility] [place] [address] * Critical Result Callback Hematology (07/08/2024 12:54 PM CDT) Date Notified [id number] Time Notified 1431 OL[facility] TestName aPTT [facility] Called/Read Back Naa QUIÑONEZ [facility] Credentials RN OLAMIDE ALEXANDER Called By john ALEXANDER Blood 07/08/2024 12:5 4 PM CDT 07/08/2024 1:17 PM CDT Elvira Cooper MD LAB BLOOD ORDERABLES Ayanna l Result Performing Organization Address [facility] Co de Phone Number OL[facility] Department [place] [address] * (ABNORMAL) aPTT (07/08/2024 12:54 PM CDT) aPTT >150(C) 28 - 38 sec Comment: Repeated and verified. Interpretive Data Heparin therapeutic range: 66.0 - 100.0 seconds. Range based on correlation with therapeutic heparin activity range of 0.3 - 0.7 Units/mL. Current interpretive data was last revised on 2023. Blood 07/08/2024 12:5 4 PM CDT 07/08/2024 1:17 PM CDT Narrative OL[facility] - 07/08/2024 2:30 PM CDT STAT PTT [...] ORDERABLES Ayanna l Result Performing Organization Address [facility]/ZIP Co de Phone Number OLAMIDE ALEXANDER [facility] Department [place] [address] * (ABNORMAL) POCT glucose (07/08/2024 11:03 AM CDT) Glucose, POC 271(H) 70 - 199 mg/dL Blood 07/08/2024 11:0 3 AM CDT 07/08/2024 11:03 AM CDT Elvira Cooper MD LAB POCT ORDERABLES - DEV ICE Final Result Performing Organization Address [facility] Co de Phone Number [facility] [place] [address] * POCT glucose (07/08/2024 7:40 AM CDT) Glucose, POC 170 70 - 199 mg/dL Blood 07/08/2024 7:40 AM CDT 07/08/2024 7:40 AM CDT Elvira Cooper MD LAB POCT ORDERABLES - DEV ICE Final Result Performing Organization Address [facility] de Phone Number [facility] [place] [address] * (ABNORMAL) aPTT (07/08/2024 4:53 AM CDT) aPTT 48(H) 28 - 38 sec Comment: Interpretive Data Heparin therapeutic range: 66.0 - 100.0 seconds. Range based on correlation with therapeutic heparin activity range of 0.3 - 0.7 Units/mL. Current interpretive data was last revised on 2023. Blood 07/08/2024 4:53 AM CDT 07/08/2024 5:27 AM CDT Narrative [facility] - 07/08/2024 5:38 AM CDT STAT PTT [...] ORDERABLES Ayanna l Result Performing Organization Address [facility] de Phone Number [facility] One [facility] Department [place] [address] * (ABNORMAL) Hemoglobin A1c (07/07/2024 1:34 AM CDT) [facility] Hgb A1C 7.7(H) 4.0 - 5.6 % Estimated Average Glucose 174 mg/dL [facility] Comment: The ADA recommends reporting an estimated [...] ORDERABLES Ayanna l Result Performing Organization Address [facility] de Phone Number [facility] One [facility] Department [place] [address] * COLONOSCOPY REPORT (03/04/2017) Anatomical Region Laterality Modality Other Narrative 03/04/2017 Ordered by an unspecified provider. Historical Provider GI PROCEDURE ORDERABLES F inal Result * Hepatitis C genotype (03/01/2017 7:46 PM CDT) [facility] HCV genotype Undetected Undetected OLAMIDE Comment: Assay failed to detect HCV RNA. This assay is not intended for HCV RNA detection purposes. ADDITIONAL INFORMATION This test was performed using the Stanford RealTime HCV Genotype II assay ([employer] [place], [place]). Test Performed by: [facility] - [address] [address] Blood specimen (specimen) 03/01/2017 7:46 PM CDT 03/01/2017 7:52 PM CDT Thelma Malcolm MD LAB MICROBIOLOGY - GENE RAL ORDERABLES Final Result OLAMIDE [address] [address] Department [place] [address] from Last 3 Months or Most Recently Relevant to Health Maintenance Insurance MEDICARE [facility] Member Subscriber Plan / Payer (Ef fective 2024-Present) Name:Loretta Penn V Relation to Subscriber:Self Name:Loretta Penn V Payer ID:[id number] (NAIC) Group ID:Not on file Type:MEDICAID RISK OTHER Address: ATTN: CLAIMS DEPT [address] [place] [id number] [facility] Sub[place] Plan / Payer (Ef fective 2021-Present) Name:Loretta Penn V Relation to Subscriber:Self Name:Loretta Penn V Payer ID:[id number] (NAIC) Type:MEDICARE RISK OTHER Address: [facility] ATTN: CLAIMS [address] [place] [id number] Advance Directives For more information, please contact: [phone] * Full Code (Latest Code Status on File) Date Activated Date Inactivated Comments 07/07/2024 12:15 AM 08/02/2024 9:58 PM * Full Code Date Activated Date Inactivated Comments 06/11/2024 2:55 AM 06/21/2024 8:49 PM * Full Code Date Activated Date Inactivated Comments 05/29/2024 9:54 PM 06/09/2024 3:14 AM Care Teams Airline Captain Relationship Specialty Start Date End Date Oswaldo Serrano MD [address] [address] PCP - General Family Medicine 04/14/18 [place] [address] [address] Consulting Physician Cardiology 06/08/24 Sandro Hong MD [address] [place] [address] Referring Physician Cardiology 06/21/24
--- OUTSIDE RECORDS SUMMARY | 2024-10-07 00:49 | XMS_ITS | Encounter Summary ---
Author Organization [facility] Healthcare Address [address] [place] [address] Care Team Providers Care Railway Signal Electrician Name Role Phone Oswaldo Serrano MD Primary Care Provider [phone] Pastora Flores MD Unavailable Sandro Hong MD Unavailable Naa Miller LCSW Unavailable [phone] Reason for Visit * Reason Comments Chart Review [facility] Patient Eligibility Review Encounter Details Date Type Department Care Team (Late st Contact Info) Description 08/03/2024 SHOP/CHAP Initial Eligibility Review [facility] OP CASE MANAGEMENT [address] [place] [address] Naa Miller LCSW [address] [facility] ([facility]) Mailstop [phone] [place] [address] Social History Tobacco Use Types Packs/Day Years Used Date Smoking Tobacco: Never Smokeless Tobacco: Never [facility] Utilities Answer Date Recorded In the past 12 months has [employer] electric, gas, oil, or water company threatened to shut off services in your home? No 07/07/2024 Social Connection and Isolat ion Panel [NHANES] Answer Date Recorded In a typical week, how many times do you talk on the phone with family, friends, or neighbors? More than three times a week 07/07/2024 How often do you get togethe r with friends or relatives? More than three times a week 07/07/2024 How often do you attend chur ch or sikhism services? Never 07/07/2024 Do you belong to any clubs o r organizations such as jew groups, unions, fraternal or athletic groups, or school groups? No 07/07/2024 How often do you attend meet ings of the clubs or organizations you belong to? Never 07/07/2024 Are you , , di vorced, , never , or living with a partner? 07/07/2024 AUDIT-C Answer Date Recorded Q1: How often [...] medical care, and heating? Not very hard 07/07/2024 PHQ-2 Answer Date Recorded PHQ-2 Total Score 2 07/07/2024 Hunger Vital Sign Answer Date Recorded Within the past 12 months, y ou worried that your food would run out before you got the money to buy more. Never true 07/07/20 24 Within the past 12 months, t he food you bought just didn't last and you didn't have money to get more. Never true 07/07/2024 PRAPARE - Transportation Answer Date Re corded In the past 12 months, has l ack of transportation kept you from medical appointments or from getting medications? No 06/11 In the past 12 months, has l ack of transportation kept you from meetings, work, or from getting things needed for daily living? No 07/07/2024 Housing Stability Vital Sign Answer Charlie e Recorded In the last 12 months, was t here a time when you were not able to pay the mortgage or rent on time? No 07/07/2024 In the past 12 months, how m any times have you moved where you were living? 1 07/07/2024 At any time in the past 12 m [facility], were you homeless or living in a longterm (including now)? No 07/07/2024 Personal Safety Answer Date Recorded Have you ever been in or are you currently in a harmful physical or emotional relationship or is someone making you feel afraid or unsafe? 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 NDM-1 07/20/2024 07/20/2024 08/03/2024 3:05 AM C DT documented as of this encounter Care Teams Railway Signal Electrician Relationship Specialty Start Date End Date Oswaldo Serrano MD [address] [address] PCP - General Family Medicine 04/14/18 [place] [address] [address] Consulting Physician Cardiology 06/08/24 Sandro Hong MD [address] [place] [address] Referring Physician Cardiology 06/21/24 Naa Miller, OUTFITTER CABIN [address] [facility] ([facility]) Mailstop [phone] [place] [address] [facility]OP Outpatient Wooden Furniture Polisher 08/03/24 08/30/24 documented as of this encounter
--- OUTSIDE RECORDS SUMMARY | 2024-10-07 00:49 | XMS_ITS | Encounter Summary ---
Author Organization [facility] Healthcare Address [address] [place] [address] Care Team Providers Care Spa Director Name Role Phone Oswaldo Serrano MD Primary Care Provider [phone] Pastora Flores MD Unavailable Sandro Hong MD Unavailable Naa MillerW Unavailable [phone] Encounter Details Date Type Department Care Team (Late st Contact Info) Description 08/07/2024 Telephone [facility] [address] [place] [address] Ashley Travis, [facility] Social History Tobacco Use Types Packs/Day Years Used Date Smoking Tobacco: Never Smokeless Tobacco: Never [facility] Utilities Answer Date Recorded In the past 12 months has [employer], gas, oil, or water [email or web address] threatened to shut off services in your [...] 08/08/2024 How often do you attend chur or synagogue services? Never 08/08/2024 Do you belong to any clubs o r organizations such as jain groups, unions, fraternal or athletic groups, or [...] any time in the past [address] [facility], were you homeless or living in a residential (including now)? No 08/08/2024 Personal Safety Answer Date Recorded Have you ever been in or are you currently in a harmful physical or emotional relationship or is someone making you feel afraid or unsafe? 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 Transitions of Care Pharmacist Post-Discharge Phone Call Pharmacist spoke with Loretta Penn via telephone to review all medications and discuss any questions/concerns since last hospital discharge. Date of discharge: 08/02/24 Date of follow up appointment: 08/07/24 Summary of significant medication changes on discharge: Patient was started on cefadroxil, cyclobenzaprine, furosemide, novolog, lidocaine, and spironolacton e Patient has supply of all necessary medications Patient reported taking all medications appropriately Medication questions/concerns: Patient had several medications destroyed from her cat urinating on them. Encouraged her to discusswith provider to send refills, she is scheduled for a follow up visit today. Additional medications patient reported taking: n/a Follow Up Actions: Instructed patient to contact PCP. Instructions provided to patient during phone call: Medications reviewed in terms of indication, administration, monitoring, potential side effects, drug interactions, and drug-food/drug-herbal interactions (particular focus was on new/changed/discontinued medications) Reviewed upcoming appointments Medication List Accurate as of August 07, 2024 8:39 AM. If you have any questions, ask your nurse or doctor. CONTINUE taking these medications Dose Instructions albuterol HFA 90 mcg/actuation inhaler Commonly known as: PROVENTIL HFA,VENTOLIN HFA,PROAIR HFA 2 puff Inhale 2 puffs every 6 (six) hours as needed for wheezing Morning Afternoon Evening Bedtime As Needed cefadroxil 500 mg capsule Commonly known as: DURICEF 1,000 mg Take 2 capsules (1,000 mg total) by mouth 2 (two) times a day Morning Afternoon Evening Bedtime As Needed cholecalciferol 5,000 unit tablet Commonly known as: VITAMIN D-3 5,000 Units Take 1 tablet (5,000 Units total) by mouth daily Morning Afternoon Evening Bedtime As Needed cyclobenzaprine 5 mg tablet Commonly known as: FLEXERIL 5 mg Take 1 tablet (5 mg total) by mouth 3 (three) times a day as needed for muscle spasms for up to 5 days Morning Afternoon Evening Bedtime As Needed docusate sodium 100 mg capsule Commonly known as: COLACE 1 capsule Take 1 capsule (100 mg total) by mouth 2 (two) times a day Morning Afternoon Evening Bedtime As Needed escitalopram 10 mg tablet Commonly known as: LEXAPRO 1 tablet Take 1 tablet (10 mg total) by mouth daily Morning Afternoon Evening Bedtime As Needed ferrous sulfate 325 mg (65 mg of elemental iron) tablet 65 mg of elemental iron Take 1 tablet (325 mg total) by mouth daily with breakfast Morning Afternoon Evening Bedtime As Needed fluticasone propionate 50 mcg/actuation nasal spray Commonly known as: FLONASE 1 spray Administer 1 spray into each nostril daily as needed for rhinitis Morning Afternoon Evening Bedtime As Needed furosemide 40 mg tablet Commonly known as: LASIX 40 mg Take 1 tablet (40 mg total) by mouth daily Morning Afternoon Evening Bedtime As Needed Gemtesa 75 mg tablet Generic drug: vibegron 1 tablet Take 1 tablet by mouth daily Morning Afternoon Evening Bedtime As Needed insulin aspart 100 unit/mL (3 mL) pen for injection Commonly known as: NovoLOG 11 Units Inject 11 Units under the skin 3 (three) times a day before meals Morning Afternoon Evening Bedtime As Needed insulin glargine 100 unit/mL (3 mL) pen for injection Commonly known as: LANTUS, BASAGLAR, SEMGLEE 26 Units Inject 26 Units under the skin daily with breakfast Morning Afternoon Evening Bedtime As Needed levothyroxine 75 mcg tablet Commonly known as: SYNTHROID 1 tablet Take 1 tablet (75 mcg total) by mouth every morning Morning Afternoon Evening Bedtime As Needed * lidocaine 4 % adhesive patch,medicated Commonly known as: ASPERCREME [address] 1 patch on the skin daily Morning Afternoon Evening Bedtime As Needed * lidocaine 4 % cream Commonly known as: LMX 1 Application Apply 2.5 g (1 Application total) topically daily Morning Afternoon Evening Bedtime As Needed magnesium oxide 400 mg (241.3 mg elemental magnesium) tablet Commonly known as: MAG-OX 400 mg Take 1 tablet (400 mg total) by mouth daily Morning Afternoon Evening Bedtime As Needed metoprolol XL 100 mg 24 hr tablet Commonly known as: TOPROL-XL 100 mg Take 1 tablet (100 mg total) by mouth daily Morning Afternoon Evening Bedtime As Needed midodrine 5 mg tablet Commonly known as: PROAMATINE 5 mg Take 1 tablet (5 mg total) by mouth 2 (two) times a day as needed (if systolic blood pressure less than 90mmHg) Morning Afternoon Evening Bedtime As Needed multivit inllsjih-fvgt-ZL-calcium 9 mg iron-400 mcg tablet Commonly known as: THERA-M 1 tablet Take 1 tablet by mouth daily Morning Afternoon Evening Bedtime As Needed nortriptyline 10 mg capsule Commonly known as: PAMELOR 10 mg Take 1 capsule (10 mg total) by mouth nightly Morning Afternoon Evening Bedtime As Needed omeprazole 20 mg capsule Commonly known as: PriLOSEC 20 mg Take 1 capsule (20 mg total) by mouth daily Morning Afternoon Evening Bedtime As Needed pen needle, diabetic 32 gauge x 5/32 needle Use as directed 3 times a day. Morning Afternoon Evening Bedtime As Needed sacubitriL-valsartan 24-26 mg tablet Commonly known as: ENTRESTO 1 tablet Take 1 tablet by mouth 2 (two) times a day Morning Afternoon Evening Bedtime As Needed spironolactone 25 mg tablet Commonly known as: ALDACTONE 12.5 mg Take 0.5 tablets (12.5 mg total) by mouth daily Morning Afternoon Evening Bedtime As Needed Xarelto 20 mg tablet Generic drug: rivaroxaban 20 mg Take 1 tablet (20 mg total) by mouth daily with dinner Morning Afternoon Evening Bedtime As Needed * This list has 2 medication(s) that are the same as other medications prescribed for you. Read thedirections carefully, and ask your doctor or other care provider to review them with you. The visit was approximately 10 minutes in duration, all of which was via telepharmacy counseling. The patient/caregiver verbalized understanding of the plan and related education. Ashley Wills, KaylaD, BCPS, BCCP Clinical Mobility Developer - Cardiology/Transitions of Care [phone] 08/07/24 Electronically signed by Ashley Travis [facility] at 08/07/2024 8:55 AM CDT documented in this encounter Plan of Treatment Not on file documented as of this encounter Visit Diagnoses Not on filedocumented in this encounter Care Teams Spa Director Relationship Specialty Start Date End Date Oswaldo Serrano MD 2 [facility] [address] [place] [address] PCP - General Family Medicine 04/14/18 [place] [address] [facility] [address] [place] [address] Consulting Physician Cardiology 06/08/24 Sandro Hong MD [address] [place] [address] Referring Physician Cardiology 06/21/24 Naa Miller, PAYROLL HUMAN RESOURCES ASSISTANT [address] [facility] ([facility]) Mailstop [phone] [place] [address] SHOP Outpatient Joiner Helper 08/03/24 08/30/24 documented as of this encounter
--- OUTSIDE RECORDS SUMMARY | 2024-10-07 00:49 | XMS_ITS | Encounter Summary ---
Author Organization [facility] Healthcare Address [address] [place] [address] Care Team Providers Care Dynamicist Name Role Phone Oswaldo Serrano MD Primary Care Provider [phone] Pastora Flores MD Unavailable Sandro Hong MD Unavailable Naa MillerW Unavailable [phone] Encounter Details Date Type Department Care Team (Late st Contact Info) Description 08/06/2024 Telephone [facility] [address] [place] [address] Ashley Travis, [facility] Social History Tobacco Use Types Packs/Day Years Used Date Smoking Tobacco: Never Smokeless Tobacco: Never [facility] Utilities Answer Date Recorded In the past 12 months has [employer], gas, oil, or water [employer] threatened to shut off services in your [...] 07/07/2024 How often do you attend chur or temple services? 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 Patient's sister answered & informed me that the patient's medications were damaged and she needs replacements for some of them. She gave me her other sister's number to call since she is in charge of the medications. Left voicemail for patient's sister at [phone] to return call to BRITTANEY pharmacist at [phone] if patient has any questions/concerns regarding discharge medications. Ashley Wills, KaylaD, BCPS, BCCP Clinical Child Welfare Counselor - Cardiology/Transitions of Care [phone] 08/06/24 documented in this encounter Plan of Treatment Not on file documented as of this encounter Visit Diagnoses Not on filedocumented in this encounter Care Teams Dynamicist Relationship Specialty Start Date End Date Oswaldo Serrano MD [address] [address] PCP - General Family Medicine 04/14/18 [place] [address] [address] [place] [address] Consulting Physician Cardiology 06/08/24 Sandro Hong MD [address] [place] [address] Referring Physician Cardiology 06/21/24 Naa Miller LCSW [address] [facility] ([facility] Mailstop [phone] [place] [address] SHOP Outpatient High Voltage Electrician 08/03/24 08/30/24 documented as of this encounter
--- OUTSIDE RECORDS SUMMARY | 2024-10-07 00:49 | XMS_ITS | Encounter Summary ---
Author Organization [facility] Healthcare Address [address] [place] [address] Care Team Providers Care Counselor Dormitory Name Role Phone Oswaldo Serrano MD Primary Care Provider [phone] Pastora Flores MD Unavailable Sandro Hong MD Unavailable Naa MillerW Unavailable [phone] Reason for Visit * Reason Comments Successful Phone Call Encounter Details Date Type Department Care Team (Late st Contact Info) Description 08/22/2024 SHOP/CHAP Subsequent Outreach [facility] OP CASE MANAGEMENT 1 [place] [address] Naa Miller, SALES PROFESSIONAL BILINGUAL [address] [facility] ([facility]) Mailstop [phone] [place] [address] Social History Tobacco Use Types Packs/Day Years Used Date Smoking Tobacco: Never Smokeless Tobacco: Never [facility] Utilities Answer Date Recorded In the past 12 months has [employer] electric, gas, oil, or water company threatened [...] attend chur ch or shinto services? Never 08/08/2024 Do you belong to any clubs o r organizations such as druze groups, unions, fraternal or athletic groups, or [...] any time in the past 12 m [facility], were you homeless or living in a longterm (including now)? No 08/08/2024 Personal Safety Answer Date Recorded Have you ever been in or are you currently in a harmful physical or emotional relationship or is someone making you feel afraid or unsafe? 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 OCM notes that she has lots of questions about the pt's recommended CHANCE and concerns with struggling to sleep with her life vest on. OCM notes that pt is scheduled to see her Cardiolgosit tomorrow Dr. Flores per sister. OCM recommended that things be discussed at this appointment. OCM explained that I would call again on Tuesday to review any recommendations post that visit and see how I can assist. OCM matt follow. Naa Miller LCSW ESTATE 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 documented in this encounter Plan of Treatment Not on file documented as of this encounter Visit Diagnoses Not on filedocumented in this encounter Care Teams Counselor Dormitory Relationship Specialty Start Date End Date Oswaldo Serrano MD [address] [address] PCP - General Family Medicine 04/14/18 [place] [address] [address] Consulting Physician Cardiology 06/08/24 Sandro Hong MD [address] [place] [address] Referring Physician Cardiology 06/21/24 Naa Miller LCSW 9691 [facility] ([facility]) Mailstop [phone] [place] [address] SHOP Outpatient Ssis Ssrs Developer 08/03/24 08/30/24 documented as of this encounter
--- OUTSIDE RECORDS SUMMARY | 2024-10-07 00:49 | XMS_ITS | Encounter Summary ---
Author Organization [facility] Healthcare Address [address] [place] [address] Care Team Providers Care Amalgamator Name Role Phone Oswaldo Serrano MD Primary Care Provider [phone] Pastora Flores MD Unavailable Sandro Hong MD Unavailable Naa MillerW Unavailable [phone] Reason for Visit * Reason Comments Unsuccessful Phone Call 2 Encounter Details Date Type Department Care Team (Late st Contact Info) Description 08/06/2024 SHOP/CHAP Initial Outreach [facility] OP CASE MANAGEMENT 1 [place] [address] Naa Miller LCSW 8888 [facility] ([facility] Mailstop [phone] [place] [address] Social History Tobacco Use Types Packs/Day Years Used Date Smoking Tobacco: Never Smokeless Tobacco: Never [facility] Utilities Answer Date Recorded In the past 12 months has [employer] electric, gas, oil, or water company threatened [...] often do you attend chur ch or lutheran services? Never 07/07/2024 Do you belong to [...] any time in the past 12 m [facility], were you homeless or living in a fdc (including now)? No 07/07/2024 Personal Safety Answer Date Recorded Have you ever been in or are you currently in a harmful physical or emotional relationship or is someone making you feel afraid or unsafe? 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 Gender Identity Not on file Sexual Orientation Not on file documented as of this encounter Plan of Treatment Not on file documented as of this encounter Visit Diagnoses Not on filedocumented in this encounter Care Teams Amalgamator Relationship Specialty Start Date End Date Oswaldo Serrano MD 2 [facility] [address] [place] [address] PCP - General Family Medicine 04/14/18 [place] [address] [place] [address] Consulting Physician Cardiology 06/08/24 Sandro Hong MD [address] [place] [address] Referring Physician Cardiology 06/21/24 Naa Miller, BOUNTY TRAPPER 4505 [facility] ([facility]) Mailstop [phone] [place] [address] SHOP Outpatient Rn Clinical Quality 08/03/24 08/30/24 documented as of this encounter
--- OUTSIDE RECORDS SUMMARY | 2024-10-07 00:49 | XMS_ITS | Encounter Summary ---
Author Organization [facility] Healthcare Address [address] [place] [address] Care Team Providers Care Material Damage Adjuster Name Role Phone Oswaldo Serrano MD Primary Care Provider [phone] Pastora Flores MD Unavailable Sandro Hong MD Unavailable Reason for Visit * Reason Comments Successful Phone Call Encounter Details Date Type Department Care Team (Late st Contact Info) Description 08/31/2024 SHOP/CHAP Subsequent Outreach [facility] OP CASE MANAGEMENT [address] [place] [phone] Naa Miller, [facility] [facility] ([facility] Mailstop [phone] [place] [address] Social History Tobacco Use Types Packs/Day Years Used Date Smoking Tobacco: Never Smokeless Tobacco: Never [facility] Utilities Answer Date Recorded In the past 12 months has [employer] electric, gas, oil, or water company threatened [...] week 08/08/2024 How often do you attend [facility] or spiritism services? Never 08/08/2024 Do you belong to any clubs o r organizations such as denominational groups, unions, fraternal or athletic groups, or [...] any time in the past 12 m [facility], were you homeless or living in a halfway (including now)? No 08/08/2024 Personal Safety Answer Date Recorded Have you ever been in or are you currently in a harmful physical or emotional relationship or is someone making you feel afraid or unsafe? 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 Pt's sister reports that things are going fair at the time of my call. OCM notes that pt saw Dr. Flores last week and family reports a good understanding of the care plan moving forward. OCM notes no barriers to providers or medications at this time. Pt hasreached day 30 of SHOP epiosde OCM will close at this time. Naa Miller LCSW OLOGIC MODELER documented in this encounter Plan of Treatment Not on file documented as of this encounter Visit Diagnoses Not on filedocumented in this encounter Care Teams Material Damage Adjuster Relationship Specialty Start Date End Date Oswaldo Serrano MD [address] [address] PCP - General Family Medicine 04/14/18 [place] [address] [address] Consulting Physician Cardiology 06/08/24 Sandro Hong MD [address] [place] [address] Referring Physician Cardiology 06/21/24 documented as of this encounter
--- OUTSIDE RECORDS SUMMARY | 2024-10-07 00:49 | XMS_ITS | Encounter Summary ---
Author Organization [facility] Address [address] [place] [address] Phone Care Team Providers Care Zone Maintenance Technician Name Role Phone Oswaldo Serrano MD Primary Care Provider [phone] Pastora Flores MD Unavailable Sandro Hong MD Unavailable Naa Miller [facility] Unavailable [phone] Encounter Details Date Type Department Care Team (Late st Contact Info) Description 08/09/2024 Telephone [facility] Cardiothoracic Surgery [address] [facility] Advanced Medicine 8th Floor [address] Room [address] [place] [address] Aleja Anguiano RMA Social History Tobacco Use Types Packs/Day Years Used Date Smoking Tobacco: Never Smokeless Tobacco: Never [facility] Utilities Answer Date Recorded In the past 12 months has [employer] electric, gas, oil, or water [employer] threatened to shut off services in your [...] week 08/08/2024 How often do you attend [facility] or druze services? Never 08/08/2024 Do you belong to [...] any time in the past 12 m [facility], were you homeless or living in a usp (including now)? No 08/08/2024 Personal Safety Answer Date Recorded Have you ever been in or are you currently in a harmful physical or emotional relationship or is someone making you feel afraid or unsafe? 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 ----- Message from Alexandra Pereira NP sent at 08/08/2024 4:04 PM CDT ----- Regarding: RE: would like to speak to dr lópez regarding sutures Can you please call - Safia removed pacemaker leads on 07/13.If there are sutures they can be removed.- following up with cardiology - thanks ----- Message ----- From: Silvia Logan Sent: 08/08/2024 11:33 AM CDT To: Alexandra Pereira NP; Best Ramos Subject: FW: would like to speak to dr lópez regard# ----- Message ----- From: Bette Rai Sent: 08/08/2024 11:28 AM CDT To: [facility] Subject: would like to speak to dr lópez regarding # Patient Query: Was an attempt to transfer to the assigned clinical staff or backline? Yes Reason for call?: would like to speak to dr lópez regarding sutures Who is the caller: leon from [facility] What is the best number for them to contact for a call back: [phone] documented in this encounter Plan of Treatment Not on file documented as of this encounter Visit Diagnoses Not on filedocumented in this encounter Care Teams Zone Maintenance Technician Relationship Specialty Start Date End Date Oswaldo Serrano MD [address] [place] [address] PCP - General Family Medicine 04/14/18 [place] [address] [address] Consulting Physician Cardiology 06/08/24 Sandro Hong MD [address] [place] [address] Referring Physician Cardiology 06/21/24 Naa Miller, PAYROLL SPECIALIST 0903 [facility] ([facility]) Mailstop [phone] [place] [address] SHOP Outpatient Hardware Press Operator 08/03/24 08/30/24 documented as of this encounter
--- OUTSIDE RECORDS SUMMARY | 2024-10-07 00:49 | XMS_ITS | Encounter Summary ---
Author Organization [facility] Address [address] [place] [address] Phone Care Team Providers Care Exhauster Name Role Phone Oswaldo Serrano MD Primary Care Provider [phone] Pastora Flores MD Unavailable Sandro Hong MD Unavailable Naa Miller [facility] Unavailable [phone] Encounter Details Date Type Department Care Team (Late st Contact Info) Description 08/02/2024 Telephone [facility] Cardiology [address] [facility] Advanced Medicine 8th [place] [address] [place] [address] Tom Keita MD 49[address] [facility] [address] [place] [address] Social History Tobacco Use Types Packs/Day Years Used Date Smoking Tobacco: Never Smokeless Tobacco: Never [facility] Utilities Answer Date Recorded In the past 12 months has th [employer] electric, gas, oil, or water company threatened [...] often do you attend chur ch or baptism services? Never 08/08/2024 Do you belong to any clubs o r organizations such as methodist groups, unions, fraternal or athletic groups, or [...] time in the past 12 m [facility], were you homeless or living in a intermediate (including now)? No 08/08/2024 Personal Safety Answer Date Recorded Have you ever been in or are you currently in a harmful physical or emotional relationship or is someone making you feel afraid or unsafe? 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 documented in this encounter Plan of Treatment Not on file documented as of this encounter Visit Diagnoses Not on filedocumented in this encounter Additional Health Concerns Infection Onset Date Last Indicated Resolved Time Ring Surveillance Comment:[id number] NDM-1 07/20/2024 07/20/2024 08/03/2024 3:05 AM C DT documented as of this encounter Care Teams Exhauster Relationship Specialty Start Date End Date Oswaldo Serrano MD [address] [address] PCP - General Family Medicine 04/14/18 [place] [address] [address] Consulting Physician Cardiology 06/08/24 Sandro Hong MD [address] [place] [address] Referring Physician Cardiology 06/21/24 Naa Miller, BRUSH FILLER HAND 1977 [facility] ([facility]) Mailstop [phone] [place] [address] SHOP Outpatient Room Attendants 08/03/24 08/30/24 documented as of this encounter
--- OUTSIDE RECORDS SUMMARY | 2024-10-07 00:49 | XMS_ITS | Encounter Summary ---
Author Organization [facility] Healthcare Address [address] [place] [address] Care Team Providers Care Candle Molder Name Role Phone Oswaldo Serrano MD Primary Care Provider [phone] Pastora Flores MD Unavailable Sandro Hong MD Unavailable Naa Miller LCSW Unavailable [phone] Reason for Visit * Reason Comments Successful Phone Call Requested I call b ack on Tuesday after pt and sisters get some rest. Encounter Details Date Type Department Care Team (Late st Contact Info) Description 08/03/2024 SHOP/CHAP Initial Outreach [facility] OP CASE MANAGEMENT 1 [place] [phone] Naa Miller LCSW 4970 [facility] ([facility]) Mailstop [phone] [place] [address] Social History Tobacco Use Types Packs/Day Years Used Date Smoking Tobacco: Never Smokeless Tobacco: Never [facility] Utilities Answer Date Recorded In the past 12 months has [employer] electric, gas, oil, or water company threatened [...] often do you attend chur ch or cheondoism services? Never 07/07/2024 Do you belong to [...] any time in the past 12 m [facility], were you homeless or living in a skilled nursing (including now)? No 07/07/2024 Personal Safety Answer Date Recorded Have you ever been in or are you currently in a harmful physical or emotional relationship or is someone making you feel afraid or unsafe? 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 Gender Identity Not on file Sexual Orientation Not on file documented as of this encounter Plan of Treatment Not on file documented as of this encounter Visit Diagnoses Not on filedocumented in this encounter Additional Health Concerns Infection Onset Date Last Indicated Resolved Time Ring Surveillance Comment:[id number] NDM-1 07/20/2024 07/20/2024 08/03/2024 3:05 AM C DT documented as of this encounter Care Teams Candle Molder Relationship Specialty Start Date End Date Oswaldo Serrano MD [address] [address] PCP - General Family Medicine 04/14/18 [place] [address] [address] Consulting Physician Cardiology 06/08/24 Sandro Hong MD [address] [place] [address] Referring Physician Cardiology 06/21/24 Naa Miller, ALEC 4578 [facility] ([facility]) Mailstop [phone] [place] [address] SHOP Outpatient Securities And Real Estate Director 08/03/24 08/30/24 documented as of this encounter
--- OUTSIDE RECORDS SUMMARY | 2024-10-07 00:49 | XMS_ITS | Encounter Summary ---
Author Organization [facility] Healthcare Address [address] [place] [address] Care Team Providers Care Driver Helper Name Role Phone Oswaldo Serrano MD Primary Care Provider [phone] Pastora Flores MD Unavailable Sandro Hong MD Unavailable Naa MillerW Unavailable [phone] Reason for Visit * Reason Comments Successful Phone Call Encounter Details Date Type Department Care Team (Late st Contact Info) Description 08/08/2024 SHOP/CHAP Initial Outreach [facility] OP CASE MANAGEMENT 1 [place] [address] Naa Miller, SOCK MENDER 9308 [facility] ([facility]) Mailstop [phone] [place] [address] Social History Tobacco Use Types Packs/Day Years Used Date Smoking Tobacco: Never Smokeless Tobacco: Never [facility] Utilities Answer Date Recorded In the past 12 months has th [employer] electric, gas, oil, or water company threatened [...] attend chur ch or protestant services? Never 08/08/2024 Do you belong to [...] any time in the past 12 m 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 Pt is 'Loretta Penn is a 63 y.o. female with a PMHx significant for MSSA bacteremia (05/2024), A-fib, HFrEF (EF 30%), T2DM, GERD, Intellectual disability who presented to [facility] after recent hospitalizations for MSSA bacteremia with concerns for spinal osteomyelitis.'. OCM talked to the pt's sister/ caregivers. OCM notes that they deny major barriers to care and indicate a good understanding of the pt's plan moving forward. OCM confirmed the involvement of HHC and that the pt has all medications. Pt is scheduled to see her PCP 08/09/2024 and sisters confirm an ability to assist the pt in getting to that appointment. OCM completed SDOH assessment noting no areas for immediate concern. OCM will call pt again in one week. Naa Miller LCSW documented in this encounter Plan of Treatment Not on file documented as of this encounter Visit Diagnoses Not on filedocumented in this encounter Care Teams Driver Helper Relationship Specialty Start Date End Date Oswaldo Serrano MD [address] [address] PCP - General Family Medicine 04/14/18 [place] [address] [address] Consulting Physician Cardiology 06/08/24 Sandro Hong MD [address] [place] [address] Referring Physician Cardiology 06/21/24 Naa Miller, ALEC 7682 [facility] ([facility]) Mailstop [phone] [place] [address] SHOP Outpatient Cigar Head Holer 08/03/24 08/30/24 documented as of this encounter
--- OUTSIDE RECORDS SUMMARY | 2024-10-07 00:49 | XMS_ITS | Encounter Summary ---
Author Organization [facility] Healthcare Address [address] [place] [address] Care Team Providers Care Liquor Inspector Name Role Phone Oswaldo Serrano MD Primary Care Provider [phone] Pastora Flores MD Unavailable Sandro Hong MD Unavailable Naa MillerW Unavailable [phone] Reason for Visit * Reason Comments Successful Phone Call Encounter Details Date Type Department Care Team (Late st Contact Info) Description 08/15/2024 SHOP/CHAP Subsequent Outreach [facility] OP CASE MANAGEMENT 1 [place] [address] Naa Miller, RN ENDOCRINOLOGY 7[address] [facility] ([facility]) Mailstop [phone] [place] [address] Social History Tobacco Use Types Packs/Day Years Used Date Smoking Tobacco: Never Smokeless Tobacco: Never [facility] Utilities Answer Date Recorded In the past 12 months has [employer] electric, gas, oil, or water company threatened [...] often do you attend chur ch or gnosticist services? Never 08/08/2024 Do you belong to [...] any time in the past 12 m [facility], were you homeless or living in a group home (including now)? No 08/08/2024 Personal Safety Answer Date Recorded Have you ever been in or are you currently in a harmful physical or emotional relationship or is someone making you feel afraid or unsafe? 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 Pt's sister Dionne answered and reports that things are going well. Per report pt ' feeling down'. OCM offered support of the outpatient sander setter, this was declined. Per report the holidays are a difficult time due to loss of family members. OCM explained my availability and encouraged ongoing engagement with providers. Naa Miller LCSW CONDUCTOR WAFERS SAW OPERATOR documented in this encounter Plan of Treatment Not on file documented as of this encounter Visit Diagnoses Not on filedocumented in this encounter Care Teams Liquor Inspector Relationship Specialty Start Date End Date Oswaldo Serrano MD [address] [address] PCP - General Family Medicine 04/14/18 [place] [address] [address] Consulting Physician Cardiology 06/08/24 Sandro Hong MD [address] [place] [address] Referring Physician Cardiology 06/21/24 Naa Milelr LCSW 4540 [facility] ([facility]) Mailstop [phone] [place] [address] SHOP Outpatient Truck Driver Rubbish Collector 08/03/24 08/30/24 documented as of this encounter
--- OUTSIDE RECORDS SUMMARY | 2024-10-07 00:50 | XMS_ITS | Encounter Summary ---
Author Organization [facility] Healthcare Address [address] [place] [address] Care Team Providers Care Fire Crew Specialist Name Role Phone Oswaldo Serrano MD Primary Care Provider [phone] Pastora Flores MD Unavailable Sandro Hong MD Unavailable Reason for Referral * Home Health (Routine) - Closed Specialty Diagnoses / Procedures Referred By Contac t Referred To Contact Home Health Services / Home Health and Hospice Diagnoses SOB (shortness of breath) Acute on chronic systolic congestive heart failure (CMS/HCC) (HCC) Russ Pride MD [address] [address] Phone: tel: fax: [facility] Services [address] [place] [address] Phone: tel: fax: Referral ID Status Reason Start Date Expiration Date V isits Requested Visits Authorized [id number] Closed Specialty Services Required 08/01/2024 08/31/2025 30 30 Question Answer [id number] Home Health Primary disciplines requested: Physical Therapy, Jail Secondary disciplines requested: Occupational Therapy Home Health Services Therapy to Eval/Tx Therapy instructions: [facility]/skeletal rehab - PT/OT Requested Start of Care Date: Other Comment: After discharge Physician to follow patient's care (the person listed here will be responsible for signing ongoing orders): PCP I attest that I or another qualified licensed provider saw the patient 90 days prior to or 30 days post admission and this face to face encounter meets the necessary Home Health requirements. The face to face encounter occurred on (date): 08/01/2024 The encounter with the patient was in whole, or in part, for the following medical condition, which is the primary reason for home health care. (List medical condition): PMH endocarditis s/p abx, obesity, heart failure. Will require help with ambulation and movement I certify that, based on my findings, the following services are medically necessary skilled home health services: Therapy to Eval/Tx Clinical findings that support the need for home care: Frequent falls requiring safety eval/therapy I certify that my clinical findings support patient's homebound status. Homebound criteria met because: Shortness of breath with minimal exertion, Poor endurance, Abnormal gait/unsteady balance resulting in fall risk * Consultation (Routine) - Pending Review Specialty Diagnoses / Procedures Referred By Praful ferro Referred To Contact Infectious Diseases Diagnoses Acute bacterial endocarditis Russ Pride MD [address] [place] [address] Phone: tel: fax: External Order Referral ID Status Reason Start Date Expiration Date Visits Requested Visits Authorized [id number] Pending Review Specialty Services Required 08/31/2025 1 1 Question Answer Please select the performing region: External Order [[id number]] # of visits: 1 Comments Patient with MSSA bacteremia c/b tricuspid valve vegetation. ICD explanted due to seeding. GT 2 weeks after initiation of abx shows persistent vegetation. Plan for repeat GT imaging in 4 weeks to see if vegetation gone. Patient s/p dalbavancin x 2, plan for lifelong suppression on cefadroxil. 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 Reason for Visit * Auth/Cert (Routine) Specialty Diagnoses / Procedures Referred By Praful ferro Referred To Contact Diagnoses Osteomyelitis (HCC) Lower Back Pain Procedures N/A Referral ID Status Reason Start Date Expiration Date Visits Re quested Visits Authorized [id number] 1 1 Encounter Details Date Type Department Care Team (Latest Contact Info) Description 07/07/2024 12:12 AM CDT - 08/02/2024 5:52 PM CDT Hospital Encounter [facility] [address] [facility] [place] [address] Elvira Cooper MD [address] [place] [address] Ynes Roman MD [address] [place] [address] Russ Pride MD [address] [address] Acute bacterial endocarditis (Primary Dx); Ventricular tachycardia (HCC); SOB (shortness of breath); Acute on chronic systolic congestive heart failure (CMS/HCC) (HCC) Discharge Disposition: Discharge to home, home health skilled care Social History Tobacco Use Types Packs/Day Years Used Date Smoking Tobacco: Never Smokeless Tobacco: Never [facility] Utilities Answer Date Recorded In the past 12 months has [employer], gas, oil, or water company threatened to [...] often do you attend chur ch or gnosticism services? 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 Gender Identity Not on file Sexual Orientation [...] Mass Index 40.2 07/07/2024 7:00 AM CDT documented in this encounter Discharge Summaries * Raul Holder MD - 08/02/2024 3:18 PM CDT Inpatient Discharge Summary BRIEF OVERVIEW Admitting Provider: Robin Watkins MD Discharge Provider: Russ Pride MD Primary Care Physician at Discharge: Oswaldo Serrano MD [phone] Admission Date: 07/07/2024 Discharge Date: 08/02/2024 Admission Location: [facility] Problems/Diagnoses: Principal Problem: Osteomyelitis (HCC) Active Problems: Endocarditis Resolved Problems: No resolved hospital problems. DETAILS OF HOSPITAL STAY Presenting Problem/History of Present Illness: 63 y.o. female with a PMHx significant for MSSA bacteremia (05/2024), A-fib, HFrEF (EF 30%), T2DM, GERD, Intellectual disability, OAB, JOSE, and hypothyroidism who presented to OSH 06/28 for back pain. Found to have + blood cx for staph aureus and CT c/f OM. Tx to [facility] for further evaluation and treatment. Information provided by patient's sister Dilia over the phone. Dilia is the patient's primary racebook writer at this time and is also the medical decision maker along with their other sister Peg. Sammy, patient had back/flank pain going on for a few days. She had finished IV antibiotics for MSSA bacteremia on June 21. Since finishing antibiotics patient had overall felt well, aside from 06/26 where she had an ED visit for N/V. Per Dilia, patient has had recurrent UTIs over the past few months. Dliia felt that patient possibly had another UTI causing sx. Patient is not able to explain urinary symptoms, however, per Dilia patient begins to act differently when she has a UTI. At [facility]: Vital signs on arrival with heart rate in the 80s, blood pressure 110s/50s, Satting 93% on room air. Labs on admission demonstrated white count of 6.2, hemoglobin of 11.9, platelets of 119. CMP with Na129, Cr 0.7, AST of 48, ALT 24, alk-phos 195. Per H&P, CVA tenderness present and UA with + nitrates, 100 rbc's, 0-5 WBC. Urine sent for cx and returned with > 100K colon ies of E. Coli. Given 1x dose of CTX in ED. EKG on presentation with AFib with RVR, treated with dilt gtt. Imaging pursued with CT lumbar spine without contrast demonstrated disc bulge at L3-L4 level, multilevel facet joint disease. Normal paraspinous soft tissue. Bilateral sacroiliitis. No acute osseous abnormality. CT AP with no acute abdominal process, sliding hiatal hernia present. Did demonstrate some pulmonary nodules, further evaluated with CT chest 07/06 which showed cardiomegaly with pericardial effusion, multiple nodules bilaterally with the largest in the right upper lobe measuring 1.3 cm. Unfortunately, provided with minimal notes from physician team. For unknown reason, 2x bloodcx drawn on 07/01. In first set, 1/2 gram + staph aureus anaerobic bottle (no comment on MRSA v. MSSA); second set 2/2 gram + staph aureus. Susceptibilites still pending, however, during prior admit in 05/2024 pt grew Staph aureus for which Ancef was susceptible and thus started along with Vanc. Vanc d/c 07/03. 07/02 cx drawn with NGTD. It is possible other antibiotics were given from 06/28 to 07/01,however, records provided do not show all meds administered. Due to + cx, TTE done with no visible vegetations on the pacemaker leads. EF 40-50%. Ultrasound of kidneys was performed due to c/f recurrent UTIs which was normal. Neurosurgery cs at OSH, rec MRI if c/f OM, however, stated pt pain not consistent with spinous process. Regarding patient's transfer to our hospital, although CT scan showed osseous involvement, outside hospital did not have capacity to perform MRI read with patient's ICD. Therefore, patient was transferred for further evaluation. Patient was recently admitted to [facility] in 05/2024 for bacteremia. She was initially admitted to [facility] on 05/21 and found to have MSSA bacteremia. Tx to [facility] 05/30 for concern for endocarditis. TTE and GT were both pursued which did not show vegetations on the valves or ICD leads. GT did reveal a left atrial appendage thrombus. She was treated with 4 weeks of IV Ancef which finished 06/21. Since that admission, she has had 2 emergency room visits. One for ventricular tachycardia resulting in ICD discharge and syncope where the patient struck her head and had a laceration that was sutured. She also was seen in the ER on 06/26 for abdominal pain and vomiting and diarrhea for 3 days. Hospital Course: Lei Rodriguez is a 63 y.o. female with a PMHx significant for MSSA bacteremia (05/2024), A-fib,HFrEF (EF 30%), T2DM, GERD, Intellectual disability who presented to [facility] after recent hospitalizations for MSSA bacteremia with concerns for spinal osteomyelitis. Imaging performed here did not show spinal osteomyelitis, but did show TV endocarditis (1.0 cm x 1.0 cm vegetation). She was started on antibiotics with last positive blood culture 07/01 and first negative culture 07/02. Repeat culture 07/07 was also negative. She underwent ICD explantation 07/13. Repeat GT 07/27 demonstrated persistent vegetation despite abx. Of note, she has a retained wire in her PA which represents a persistent infectious source (unclearhow wire was left in PA). She was not considered a candidate for angiovac/TV surgery given clearingcultures and patient family preference. Also not a candidate for retained wire removal given elevated risk per vascular surgery. Decision was made to defer ICD re-implantation at the time given persistent vegetation on TV. She was discharged home with a Kestra vest, lifelong antibiotic suppression with cefadroxil and plans for4 more weeks of antibiotics with re-imaging of TV and eventual ICD. #MSSA TV Endocarditis, recurrent, secondary to infected ICD lead # ICD explantation 07/13/24 # Persistent TV vegetation #History of Vfib/VT Recent admit 05/2024 for MSSA bacteremia. Per outside hospital, TTE and GT at the time without vegetations on valves/ICD. S/p 4 weeks of IV Ancef ending 06/21. Review of ID notes from OSH show blood cultures remained clear on 06/13. 07/01 blood cx were drawn x2, 10/11 then second set 11/11 MSSA. Ancef restarted. 07/07 cx NGTD. Recurrence due to lack of source control on ICD. S/p ICD explant on 07/13/24 with path confirming MSSA on ICD lead. Also found to have TV endocarditis with vegetation visualized on GT 07/10, 07/13, persistent on 07/27 (1.2 x 0.9 cm 07/13 vs 1.0 x 1.1 cm on 07/27). Per multidisciplinary discussion with CTS, valvular prior to ICD explant, not a candidate for angiovac or TV surgery given clearing BCx, moderate vegetation size, without significant valve dysfunction, and sisters strongly against open heart surgery (see CTS brief note 07/11/24). Also not a candidate for removal ofretained wire, extremely high risk per CTS/Vascular. Patient found to have retained wire in PA, representing persistent potential source and precluding any future MRI per discussion with radiology. Underwent PET 07/23/24 to rule out osteo of spine and was negative. Will need lifetime antibiotic suppression of cefadroxil, per ID due to retained wire (07/25-) and has received Ancef q8h 07/13- and 2 doses of Dalbavancin (07/25, 08/01), which will provide her 6 weeks of MSSA infective endocarditis coverage. Per conversation with ID, they recommended no IV outpatient antibiotics given level of supervision necessary. Additionally, per EP, transvenous ICD cannot be placed until TV vegetation clears. In the interim, patient was discharged with Kestra life vest and provided family and patient teachings. Patient will need to follow up with ID and cardiology/EP outpatient for MSSA IE coverage andTEE in 4 weeks (08/24) and re-evaluation of ICD placement. Encourage adherence to LifeVest with thehelp of patient's sisters. - Lifelong suppression with cefadroxil - Repeat GT in 4 weeks to reassess vegetation - Wearing Kestra ICD vest until follow up GT - Not a candidate for surgery / wire removal given risk/patient preference/cleared cultures - Will need re-implantation of ICD after 4 weeks abx #Hx of intellectual disability/developmental delay #Agitation #Concern for suicidality, resolved Sister Dilia currently takes care of patient, other sister Peg assists. Both discuss pt medical decisions together. Patient is not consentable. As in interval history 07/18, patient expressed sentiments of preferring to over remaining in hospital. Per assessment by primary team, not felt estevan actively suicidal at this time, deferred sitter. Psychiatry consulted, appreciate further recommendations. Haldol 2 mg PRN for agitation, avoid further benzos due to concern of delirium. No activeSI/HI/AVH at discharge. #HFrEF - compensated EF of 30% on 05/2024 echocardiogram, mild-mod MR, RVSP 42 mild-mod TR. HFrEF dates back to at [id number], etiology not established. S/p CTA coronary 07/16 without CAD, sarcoid PET 07/23/24 without inflammation. No issues with volume overload during stay. Discharged on: - Entresto 24-26 BID (did not increase further, felt limited by BPs) - metoprolol 150 XL (increased during admission for rate control, see below) - spironolactone 12.5 mg. - Was not started on Farxiga due to prior history of recurrent UTI. - Diuretic: lasix 40 daily #Persistent atrial fibrillation #MAULIK Thrombus In AFib throughout admission. Previously on Tikosyn, however, taken off of Tikosyn after admission for MSSA, and was continued on Xarelto for AC and Coreg for rate control. GT in May 2024 performed to eval for endocarditis showed LA thrombus while on Xarelto. At OSH just prior to this admission, patient had RVR and received dual tim blockade with dilt and metoprolol, stopped dilt 2/2 reduced EF and continued on metoprolol. Metoprolol succinate increased to 75 after symptomatic RVR on 07/18, increase to 100 07/27 due to rates 130s and transient into 150s. Anticoagulation: heparin gtt -> Eliquis 07/14. Discharged on apixaban 5 bid and 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 100 daily #T2DM Home regimen: glargine 18u; Lispro 10 TID + SSI. A1c here 7.7 on 07/07/24. Currently on Lantus 26 and mealtime 11 TID + HDSSI given hyperglycemia. She has been poorly controlled during admission due to inconsistency in diet and willingness to receive insulin. Episode of hypoglycemia 07/21 after patient received insulin then refused to eat any food, other times eating but refuses insulin. Recommendfurther diet counseling outpatient and insulin management. #Anemia Hgb 10.8 on arrival. Bl: 11-12. MCV elevated. B12 > 1000 at OSH, Folate wnl. #Recurrent UTI #OAB Per family, has been treated multiple times recently for UTIs. Her symptoms are not urinary in nature, her symptoms typically are becoming delirious and belligerent. UA at outside hospital with 0-5 WBC, 3+ nitrate. Cx was performed which showed >100,000 colonies E coli and per documentation completed course of ceftriaxone for UTI. Given ongoing concerns with family surrounding possible UTI, repeated UA 07/19 negative. Home Vibegron 75, but changed to Mirabegron for formulary. #MARK, resolved Cr elevated to 1.66 in PM 07/18 labs, FeUrea prerenal, suspected in setting of transient hypotensionduring RVR on 07/18. Resolved without treatment. #Hypothyroidism: Synthroid 75mcg, TSH 2.8 #Depression: Continue Lexapro 10, nortriptyline 10. Moved nortriptyline to PM dosing per psychiatryrecommendations #GERD: Pantoprazole 20 #Constipation: Senna-Docusate BID #JOSE: Patient reportedly intermittently compliant at home on CPAP. Patient declined daily, dc'ed after 2 weeks of daily refusal Active Issues Requiring Follow-up: - TV endocarditis - Needs GT in 4-6 weeks - Needs ICD - Will need lifelong cefadroxil per ID Test Results Pending at Discharge: Pending Labs Order Current Status CBC with auto differential In process CBC with auto differential In process Comprehensive metabolic panel In process HIV 1/2 Antibody plus p24 Antigen Blood In process Hemoglobin A1c In process Lipid panel In process Magnesium In process Magnesium In process Magnesium In process Magnesium In process Protime-INR In process Operative Procedures Performed: Procedure(s): EXTRACTION LEAD AUTOMATIC IMPLANTABLE CARDIOVERTER DEFIBRILLATOR Other Procedures: NA Pertinent Test Results: Discharge Details Physical Exam at Discharge: Discharge Condition: fair Pulse: 106 Resp: 18 BP: 131/76 Temp: 36.4 ??C (97.6 ??F) Weight: (refused) Discharge Disposition: Code Status at Discharge: Full Discharge Instructions: Dear Ms. 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 We evaluated you thoroughly including blood cultures, lab work, evaluation from infectious disease and cardiology, and treated you with antibiotics and medications for heartfailure and atrial fibrillation, as well as diabetes, and other chronic medical issues. We are discharging you with medications as per the list below. It will be important to follow up with arboreal scientist and infectious disease specialist. Please present to medical attention (by calling your PCP, calling 911, or going to an emergency department) if you experience chest pain, sudden shortness of breath, and fevers. You have the following appointments scheduled: - Cardiology: Dr. Flores at [facility] on August 21 at 2:15 pm. Please call to confirm your appointment and location at - Infectious Diseases: Dr. Josué Gomes at [facility]. Appointment is 08/09 at 11:15 AM. Their address is [address] [place] [address], [address] Please call them to confirm your appointment and location at Your primary care provider is Oswaldo Serrano MD and can be reached at [phone]. -> I have made changes to the dosage of your medications, including: insulin, metoprolol. -> I have prescribed a new medication or medications: cefadroxil. -> I have discontinued one or more of your medications, including: jardiance. Please STOP takingthem. We recommend following up with infectious disease specialists for antibiotics to treat the infection in the heart (Endocarditis). We also recommend following up with your cardiologists/glass sander for a repeat GT (an image of your heart through the throat) to assess for remaining vegetation of the valve and evaluation of re-insertion of a pacemaker. In the meantime, PLEASE wear your LifeVest, which can prevent cardiac arrest and poor outcomes. We wish you the very best, Cardiology Firm [facility] [phone] Other Instructions Ambulatory referral to Home Health Service Line: Home Health Primary disciplines requested: Physical Therapy Secondary disciplines requested: Occupational Therapy Home Health Services: Therapy to Eval/Tx Therapy instructions: [facility]/skeletal rehab Comment - PT/OT Requested Start of Care Date: Other Comment: After discharge Physician to follow patient's care (the person listed here will be responsible for signing ongoing orders): PCP I attest that I or another qualified licensed provider saw the patient 90 days prior to or 30 days post admission and this face to face encounter meets the necessary Home Health requirements. The face to face encounter occurred on (date): 08/01/2024 The encounter with the patient was in whole, or in part, for the following medical condition, whichis the primary reason for home health care. (List medical condition): PMH endocarditis s/p abx, obesity, heart failure. Will require help with ambulation and movement I certify that, based on my findings, the following services are medically necessary skilled home health services: Therapy to Eval/Tx Clinical findings that support the need for home care: Frequent falls requiring safety eval/therapy I certify that my clinical findings support patient's homebound status. Homebound criteria met because: Shortness of breath with minimal exertion Poor endurance Abnormal gait/unsteady balance resulting in fall risk Wearable Cardioverter Defibrillator Height: 165.1 cm (5' 5 ) Weight: 105.9 kg (233 lb 6.4 oz) Estimated start date: 07/31/2024 Type: ASSURE - K[employer]ra [employer] Length of prescription: 4 months VT zone detection rate (bpm): 170 VT zone treatment: Treat VF detection rate: (bpm): 200 Treatment (Joules): 170J for all shocks in all Zones Type of patient: Outpatient To qualify for Assure WCD, patient must have one of the following diagnoses: Cardiac arrest due to VF or sustained VT ICD-10 Codes (select as many as appropriate): I42.0 Comment - Dilated cardiomyopathy I46.8 Comment - Cardiac arrest due to other underlying condition I47.2 Comment - Ventricular tachycardia I49.01 Comment - Ventricular fibrillation [id number] Comment - Infection and inflammatory reaction due to other cardiac and vascular devices When a Kestra Assure is ordered in [facility], the order is automatically faxed to [employer].. Additional patient information is needed. Please enter the date you will fax the patient???s face sheet and supporting documentation to [phone].: 07/31/2024 The [id number]-mf-hsdh evaluation was performed on: 07/31/2024 DME services provided by: [facility] Home Health agency: [facility] Phone number: [phone] You should be contacted by the home health care agency within 1-2 days regarding scheduling a visit. If you don't hear from them, please call the number listed above to follow-up. Thank you Discharge Medications: Current Medications TAKE these medications albuterol HFA 90 mcg/actuation inhaler Inhale 2 puffs every 6 (six) hours as needed for wheezing Commonly known as: PROVENTIL HFA,VENTOLIN HFA,PROAIR HFA cefadroxil 500 mg capsule Take 2 capsules (1,000 mg total) by mouth 2 (two) times a day For: MSSA BSI, in conjuction with Dalbavancin, 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 Commonly known as: DURICEF cholecalciferol 5,000 unit tablet Take 1 tablet (5,000 Units total) by mouth daily Commonly known as: VITAMIN D-3 cyclobenzaprine 5 mg tablet Take 1 tablet (5 mg total) by mouth 3 (three) times a day as needed for muscle spasms for up to 5 days Commonly known as: FLEXERIL docusate sodium 100 mg capsule Take 1 capsule (100 mg total) by mouth 2 (two) times a day Commonly known as: COLACE escitalopram 10 mg tablet Take 1 tablet (10 mg total) by mouth daily Commonly known as: LEXAPRO ferrous sulfate 325 mg (65 mg of elemental iron) tablet Take 1 tablet (325 mg total) by mouth daily with breakfast fluticasone propionate 50 mcg/actuation nasal spray Administer 1 spray into each nostril daily as needed for rhinitis Commonly known as: FLONASE furosemide 40 mg tablet Take 1 tablet (40 mg total) by mouth daily Commonly known as: LASIX Gemtesa 75 mg tablet Take 1 tablet by mouth daily Generic drug: vibegron insulin aspart 100 unit/mL (3 mL) pen for injection Inject 11 Units under the skin 3 (three) times a day before meals Commonly known as: NovoLOG insulin glargine 100 unit/mL (3 mL) pen for injection Inject 26 Units under the skin daily with breakfast Commonly known as: LANTUS, BASAGLAR, SEMGLEE levothyroxine 75 mcg tablet Take 1 tablet (75 mcg total) by mouth every morning Commonly known as: SYNTHROID * lidocaine 4 % adhesive patch,medicated Place 1 patch on the skin daily Commonly known as: ASPERCREME * lidocaine 4 % cream Apply 2.5 g (1 Application total) topically daily Commonly known as: LMX magnesium oxide 400 mg (241.3 mg elemental magnesium) tablet Take 1 tablet (400 mg total) by mouth daily For: low amount of magnesium in the blood Commonly known as: MAG-OX metoprolol XL 100 mg 24 hr tablet Take 1 tablet (100 mg total) by mouth daily Commonly known as: TOPROL-XL Start taking on: August 03, 2024 midodrine 5 mg tablet Take 1 tablet (5 mg total) by mouth 2 (two) times a day as needed (if systolic blood pressure less than 90mmHg) Commonly known as: PROAMATINE multivit apdkewzd-awzp-TA-calcium 9 mg iron-400 mcg tablet Take 1 tablet by mouth daily Commonly known as: THERA-M nortriptyline 10 mg capsule Take 1 capsule (10 mg total) by mouth nightly Commonly known as: PAMELOR omeprazole 20 mg capsule Take 1 capsule (20 mg total) by mouth daily Commonly known as: PriLOSEC pen needle, diabetic 32 gauge x needle Use as directed 3 times a day. sacubitriL-valsartan 24-26 mg tablet Take 1 tablet by mouth 2 (two) times a day For: chronic heart failure Commonly known as: ENTRESTO spironolactone 25 mg tablet Take 0.5 tablets (12.5 mg total) by mouth daily Commonly known as: ALDACTONE Xarelto 20 mg tablet Take 1 tablet (20 mg total) by mouth daily with dinner Generic drug: rivaroxaban * This list has 2 medication(s) that are the same as other medications prescribed for you. Read the directions carefully, and ask your doctor or other care provider to review them with you. 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 GT 2 weeks after initiation of abx shows persistent vegetation. Plan for repeat GT imaging in 4 weeks to see if vegetation gone. Patient s/p dalbavancin x 2, plan for lifelong suppression on cefadroxil. 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 Questions: Please select the performing region: External Order # of visits: 1 Referral Status: External - Ready to Schedule [facility] [id number] Next Steps: Follow up Oswaldo Serrano MD Specialty: Family Medicine Relationship: PCP - General [address] [address] Next Steps: Follow up Cosigned by Suman Chávez MD at 08/02/2024 5:18 PM CDT documented in this encounter Discharge Instructions * Discharge Instructions* Raul Holder MD - 08/01/2024 2:10 PM CDT Dear Ms. 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 We evaluated you thoroughly including blood cultures, lab work, evaluation from infectious disease and cardiology, and treated you with antibiotics and medications for heartfailure and atrial fibrillation, as well as diabetes, and other chronic medical issues. We are discharging you with medications as per the list below. It will be important to follow up with arboreal scientist and infectious disease specialist. Please present to medical attention (by calling your PCP, calling 911, or going to an emergency department) if you experience chest pain, sudden shortness of breath, and fevers. You have the following appointments scheduled: - Cardiology: Dr. Flores at [facility] on August 21 at 2:15 pm. Please call to confirm your appointment and location at - Infectious Diseases: Dr. Josué Gomes at [facility]. Appointment is 08/09 at 11:15 AM. Their address is [address] [place] [address], [place], [place]. Please call them to confirm your appointment and location at Your primary care provider is Oswaldo Serrano MD and can be reached at [phone]. -> I have made changes to the dosage of your medications, including: insulin, metoprolol. -> I have prescribed a new medication or medications: cefadroxil. -> I have discontinued one or more of your medications, including: jardiance. Please STOP takingthem. We recommend following up with infectious disease specialists for antibiotics to treat the infection in the heart (Endocarditis). We also recommend following up with your cardiologists/glass sander for a repeat GT (an image of your heart through the throat) to assess for remaining vegetation of the valve and evaluation of re-insertion of a pacemaker. In the meantime, PLEASE wear your LifeVest, which can prevent cardiac arrest and poor outcomes. We wish you the very best, Cardiology Firm Service [facility] [phone] * Discharge Instr - Other Orders* Lou Parmar RN - 08/01/2024 2:34 PM CDT Home Health agency: [facility] Phone number: [phone] You should be contacted by the home health care agency within 1-2 days regarding scheduling a visit. If you don't hear from them, please call the number listed above to follow-up. Thank you documented in this encounter Medications at Time of Discharge albuterol HFA (PROVENTIL HFA,VENTOLIN HFA,PROAIR HFA) 90 mcg/actuation inhaler Inhale 2 puffs every 6 (six) hours as needed for wheezing cefadroxil (DURICEF) 500 mg capsuleIndicatio ns:MSSA BSI, in conjuction with Dalbavancin, 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 Take 2 capsules (1,000 mg total) by mouth 2 (two) times a day 360 capsule 3 08/02/2024 cholecalciferol (VITAMIN D-3) 5,000 unit tablet Take 1 tablet (5,000 Units total) by mouth daily cyclobenzaprine (FLEXERIL) 5 mg tablet Take 1 tablet (5 mg total) by mouth 3 (three) times a day as needed for muscle spasms for up to 5 days 15 tablet 08/02/2024 docusate sodium (COLACE) 100 mg capsule Take 1 capsule (100 mg total) by mouth 2 (two) times a day 09/23/2017 escitalopram (LEXAPRO) 10 mg tablet Take 1 tablet (10 mg total) by mouth daily 12/12/2023 ferrous sulfate 325 mg (65 mg of elemental iron) tablet Take 1 tablet (325 mg total) by mouth daily with breakfast fluticasone propionate (FLONASE) 50 mcg/actuation nasal spray Administer 1 spray into each nostril daily as needed for rhinitis furosemide (LASIX) 40 mg tablet Take 1 tablet (40 mg total) by mouth daily 90 tablet 3 08/02/2024 Gemtesa 75 mg tablet Take 1 tablet by mouth daily insulin aspart (NovoLOG) 100 unit/mL (3 mL) pen for injection Inject 11 Units under the skin 3 (three) times a day before meals 29.7 mL 1 08/02/2024 5 insulin glargine 100 unit/mL (3 mL) pen for injection Inject 26 Units under the skin daily with breakfast 23.4 mL 1 08/02/2024 5 levothyroxine (SYNTHROID) 75 mcg tablet Take 1 tablet (75 mcg total) by mouth every morning lidocaine (ASPERCREME) 4 % adhesive patch,medicated Place 1 patch on the skin daily 1 patch 3 08/02/2024 lidocaine (LMX) 4 % cream Apply 2.5 g (1 Application total) topically daily 30 g 2 08/02/2024 metoprolol XL (TOPROL-XL) 100 mg 24 hr tablet Take 1 tablet (100 mg total) by mouth daily 90 tablet 08/03/2024 midodrine (PROAMATINE) 5 mg tablet Take 1 tablet (5 mg total) by mouth 2 (two) times a day as needed (if systolic blood pressure less than 90mmHg) 30 tablet 06/21/2024 multivit qtdlliqa-qdmf-YT -calcium (THERA-M) 9 mg iron-400 mcg tablet Take 1 tablet by mouth daily nortriptyline (PAMELOR) 10 mg capsule Take 1 capsule (10 mg total) by mouth nightly 90 capsule 3 08/02/2024 omeprazole (PriLOSEC) 20 mg capsule Take 1 capsule (20 mg total) by mouth daily pen needle, diabetic 32 gauge x /32 needle Use as directed 3 times a day. 100 each 06/21/2024 sacubitriL-valsa rtan (ENTRESTO) 24-26 mg tabletIndication s:chronic heart failure Take 1 tablet by mouth 2 (two) times a day 180 tablet 08/02/2024 spironolactone (ALDACTONE) 25 mg tablet Take 0.5 tablets (12.5 mg total) by mouth daily 15 tablet 11 08/02/2024 Xarelto 20 mg tablet Take 1 tablet (20 mg total) by mouth daily with dinner documented as of this encounter Ordered Prescriptions Prescription Sig Dispense Quantity Refills Last Filled Start Date End Date insulin aspart (NovoLOG) 100 unit/mL (3 mL) pen for injection Inject 11 Units under the skin 3 (three) times a day before meals 29.7 mL 1 08/02/2024 5 insulin glargine 100 unit/mL (3 mL) pen for injection Inject 26 Units under the skin daily with breakfast 23.4 mL 1 08/02/2024 metoprolol XL (TOPROL-XL) 100 mg 24 hr tablet Take 1 tablet (100 mg total) by mouth daily 90 tablet 08/03/2024 cyclobenzaprine (FLEXERIL) 5 mg tablet Take 1 tablet (5 mg total) by mouth 3 (three) times a day as needed for muscle spasms for up to 5 days 15 tablet 08/02/2024 furosemide (LASIX) 40 mg tablet Take 1 tablet (40 mg total) by mouth daily 90 tablet 3 08/02/2024 spironolactone (ALDACTONE) 25 mg tablet Take 0.5 tablets (12.5 mg total) by mouth daily 15 tablet 11 08/02/2024 lidocaine (LMX) 4 % cream Apply 2.5 g (1 Application total) topically daily 30 g 2 08/02/2024 lidocaine (ASPERCREME) 4 % adhesive patch,medicated Place 1 patch on the skin daily 1 patch 3 08/02/2024 cefadroxil (DURICEF) 500 mg capsuleIndications :MSSA BSI, in conjuction with Dalbavancin, 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 Take 2 capsules (1,000 mg total) by mouth 2 (two) times a day 360 capsule 3 08/02/2024 nortriptyline (PAMELOR) 10 mg capsule Take 1 capsule (10 mg total) by mouth nightly 90 capsule 3 08/02/2024 sacubitriL-valsart an (ENTRESTO) 24-26 mg tabletIndications: chronic heart failure Take 1 tablet by mouth 2 (two) times a day 180 tablet 08/02/2024 5 documented in this encounter Discharge Disposition Disposition Code Departure Means Destination Comment s Discharge to home, home health skilled care documented in this encounter Progress Notes * Lou Parmar RN - 08/02/2024 4:17 PM CDT 08/02/24 3435 Discharge Summary Discharge Disposition Private residence;Home health care Recommended Discharge Level of Care shelter facility (short term care) Actual Discharge Level of Correction health care Does Actual Level of Care Match Care Team Recommendation? No Reason for Mismatch Pt/family/disagree Post Acute Care Plan Home Care Services Yes Type of Home Care Services Home therapies;Nurse visit Home Care Services Name and Phone Number [facility] [phone] OP Services N/A DME Yes Durable Medical Equipment Other (Comment) DME Name and Contact Number Carola Shearer ([phone]) Post Acute Care Facility Decline Discharge Additional Assistance Does the patient need discharge transport arranged? No (Sister for transportation) Post Discharge Care Provider Post Discharge Care Plan DC Summary has been faxed to next level of care provider (see Follow Up Providers) Per medical team, patient is medically stable for discharge at this time. Follow up appointment hasbeen scheduled for 08/09/24 @ 14:00. Transportation will be provided by sister. Patient and/or family are agreeable with the plan. If any further discharge needs arise, please contact the covering senior case manager. * Ha Martinez - 08/02/2024 2:00 PM CDT Occupational Therapy Occupational Therapy Progress Note NOTE: This is a summary note of the vaz components of the treatment session. For full details, review chart for all flowsheets documented on by this occupational therapy clinician on this date. Vitalsigns documented in vital signs flowsheet. Care plan progress documented in Care Plan Activity. For questions, please review the treatment team and contact the occupational therapist currently assigned to this patient. If an occupational therapist is not assigned to this patient, please call [phone]. 08/02/24 1307 General Session Type Treatment OT Received On 08/02/24 Safe Environment Patient found sitting at edge of bed;Arm band checked Subjective Agreeable to Therapy Family/Caregiver Present No Precautions Precautions Fall risk Pain Assessment Pain Assessment 0-10 Pain Score 9 Pain Location Back (Lumbar) Pain Interventions RN Notified (Emily) Balance Balance Yes Dynamic Sitting Balance Dynamic Sitting-Balance Support No upper extremity supported;Feet supported Dynamic Sitting-Balance Lateral lean;Forward lean;Reaching for objects;Reaching across midline Dynamic Sitting-Sitting Surface Bed Dynamic Sitting-Level of Assistance Contact guard Dynamic Sitting-Comments for safety Dynamic Standing Balance Dynamic Standing-Balance Support Unilateral upper extremity supported Dynamic Standing-Balance Lateral lean;Forward lean;Reaching for objects;Reaching across midline Dynamic Standing-Standing Surface Floor Dynamic Standing-Level of Assistance Contact guard Dynamic Standing-Comments for safety ADL ADLS (WDL) X Grooming Grooming: Where assessed Standing at sink Grooming: Level of assistance Contact Guard Assist Grooming: Assistance with Balance;Safety LE Dressing LE Dressing: Where assessed Edge of bed LE Dressing: Level of assistance Contact Guard Assist LE Dressing: Assistance with Balance;Safety Bed Mobility Bed Mobility No (NT 2/2 starting and ending session sitting EOB d/t Pt's request) Transfers Transfer Yes Transfer 1 Transfer From 1 Sit Transfer Type 1 To and from Transfer to 1 Stand Technique 1 Sit to stand;Stand to sit Transfer Device 1 Other (comments) (3 ww) Transfer Level of Assistance 1 Contact Guard Assist Trials/Comments 1 for safety Transfers 2 Trials/Comments 2 Pt completes functional mobility using 3ww with CGA for safety Toilet Transfers Toilet Transfer From Bed Toilet Transfer Type To and from Toilet Transfer to Standard toilet Toilet Transfer Technique Ambulating Toilet Transfer: Equipment (3 ww) Toilet Transfers Contact guard Toilet Transfers Comments for safety Cognition Arousal/Alertness Alert Attention Span Appears intact Current communication Appears Intact Orientation Oriented X4 (person, place, time, situation) Following Commands Follows all commands and directions without difficulty Safety Judgment Decreased awareness of need for assistance Awareness of Errors Assistance required to identify errors made;Assistance required to correct errors made Insight Decreased awareness of deficits Problem Solving Assistance required to identify errors made;Assistance required to generate solutions Compliance/Behavior Easy to engage Perseveration Not present Other Comments Comments HEP updated to increase intensity and improve B UE strength.Exercises include using soda bottle weight and completing movement 2 sets x 10 reps, 2-3 times per day. HEP includes elbow flexionand shoulder abduction. Pt verbalizes and demo's understanding. Daily Activity - 6 Clicks Putting on and taking off regular lower body clothing 3 Bathing 3 Toileting 3 Putting on and taking off upper body clothing 3 Personal Grooming 3 Eating Meals 4 Total Score (range 6-24) 19 Score Interpretation 40.22 Safe Environment End of Therapy Session Safe Environment End of Therapy Session Patient left sitting at edge of bed;RN notified;Call light within reach;Overbed table within reach Assessment Problem List Decreased upper extremity strength;Decreased safe judgment during ADL;Decreased cognition;Decreased endurance;Decreased balance;Decreased functional mobility;Decreased ADL independence;Decreased IADL independence;Decreased UE function;Decreased trunk control for functional activities;Pain;Decreased upper extremity function Barriers to Discharge Current Mobility Status;Current ADL Status;Decreased caregiver support;Cognition;Decreased safety awareness Plan Plan Continue with current plan;If this is the last note, consider this the discharge summary Recommendation/Plan OT Recommendation Jail Facility Patient at high risk for Falls;Readmission;Injury due to decreased ability to care for self;Injury due to reduced functional status;Injury due to impaired cognition;Injury due to balance deficits;Injury at home as patient has not returned to prior level of function;Cognitive decline due to decreased social participation;Mismanagement of medications;Prolonged dependence for self care tasks;Developing secondary complications: poor health management Recommend SNF due to Risk of injury at home;Unable to safely care for self in the home;Skilled therapy needed to address care for self in the home;Skilled therapy needed for patient to return to prior level of independence;Skilled therapy needed to address functional deficits OT Frequency during current admission 2-3x/wk Treatment/Interventions during current admission ADL/IADL retraining;Balance Training;Bed mobility;Cognitive retraining;Compensatory technique education;Endurance training;Functional activity;Functional mobility training;Functional transfer training;Positioning;Strengthening;Therapeutic activity;Therapeutic exercise;Transfer training;Upper extremity motor function/functional skills Progress during current admission Progressing toward goals OT - Next Appointment 08/06/24 Time Calculation Start Time 1307 Stop Time 1331 Time Calculation (min) 24 min Multi-Disciplinary Problems (from Occupational Therapy) Active Problems Problem: Dressings Lower Extremities Start Date: 07/24/24 Goal Start Date Expected End Date End Date STG - Patient to complete lower body dressing 07/24/24 07/31/24 -- Goal Details: With Mod I Problem: Grooming Start Date: 07/24/24 Goal Start Date Expected End Date End Date STG - Patient will complete grooming 07/24/24 07/31/24 -- Goal Details: Standing at sink with Mod I Problem: Toileting Start Date: 07/24/24 Goal Start Date Expected End Date End Date STG - Patient will complete toileting tasks with 07/24/24 07/31/24 -- Goal Details: Mod I at toilet in bathroom Problem: Transfers Start Date: 07/24/24 Goal Start Date Expected End Date End Date STG - Patient will perform toilet transfer 07/24/24 07/31/24 -- Goal Details: To toilet in bathroom with Mod I Problem: OT Misc Start Date: 07/24/24 Goal Start Date Expected End Date End Date OT LTG - Misc 1 07/24/24 08/07/24 -- Goal Details: Patient will perform ADL tasks with modified independence Cosigned by Da Manriquez OT at 08/02/2024 2:01 PM CDT * Raul Holder MD - 08/02/2024 11:33 AM CDT Medicine Daily Progress Note Patient: Lei Rodriguez : 1960 (63 y.o.) Date of Admission: 07/07/2024 Date of Service: 08/02/24 SUBJECTIVE Interval Events: - Received Dalbavancin yesterday - Underwent Benny Srivastava ICD vest training with sisters. Vest now in room - Scheduled outpatient for infectious diseases and cardiology (sisters aware and will send over DC paperwork) - chacho [facility] stable Plan for Today: - DC today with ID and cards follow ups OBJECTIVE Vitals Most Recent: Vitals: 08/02/24 0845 BP: Pulse: 92 Resp: Temp: SpO2: 24 Hour Min/Max: Temp Min: 36.3 ??C (97.3 ??F) Max: 36.6 ??C (97.9 ??F) Pulse Min: 68 Max: 92 BP Min: 109/68 Max: 134/97 Resp Min: 18 Max: 19 SpO2 Min: 92 % Max: 100 % Intake/Output Intake/Output Summary (Last 24 hours) at 08/02/2024 1134 Last data filed at 08/02/2024 0235 Gross per 24 hour Intake 250 ml Output 800 ml Net -550 ml Current Medications Scheduled Meds: Scheduled Medications Medication Dose Route Frequency acetaminophen (TYLENOL) tablet 1,000 mg 1,000 mg oral Q8H apixaban (ELIQUIS) tablet 5 mg 5 mg oral Q12H GALINA cefadroxil (DURICEF) 500 mg capsule 1,000 mg 1,000 mg oral BID escitalopram (LEXAPRO) tablet 10 mg 10 mg oral Daily furosemide (LASIX) tablet 40 mg 40 mg oral Daily insulin glargine (LANTUS, SEMGLEE) 100 unit/mL injection 26 Units 26 Units subcutaneous QAM insulin lispro (HumaLOG, ADMELOG) 100 unit/mL injection 0-10 Units 0-10 Units subcutaneous TID withmeals insulin lispro (HumaLOG, ADMELOG) 100 unit/mL injection 0-5 Units 0-5 Units subcutaneous Nightly insulin lispro (HumaLOG, ADMELOG) 100 unit/mL injection 11 Units 11 Units subcutaneous TID with meals levothyroxine (SYNTHROID) tablet 75 mcg 75 mcg oral Daily - 0600 lidocaine (ASPERCREME) 4 % patch 1 patch 1 patch transdermal Q24H magnesium oxide (MAG-OX) tablet 800 mg 800 mg oral Daily metoprolol XL (TOPROL-XL) extended release tablet 100 mg 100 mg oral Daily mirabegron ER (MYRBETRIQ) extended release tablet 25 mg 25 mg oral Daily nortriptyline (PAMELOR) capsule 10 mg 10 mg oral Nightly pantoprazole DR (PROTONIX) extended release tablet 20 mg 20 mg oral Daily polyethylene glycol (MIRALAX) packet 17 g 17 g oral BID sacubitriL-valsartan (ENTRESTO) 24-26 mg tablet 1 tablet 1 tablet oral BID senna-docusate (PERICOLACE) 8.6-50 mg per tablet 1 tablet 1 tablet oral BID sodium chloride 0.9% flush 0.5-20 mL 0.5-20 mL intra-catheter Q8H GALINA sodium chloride 0.9% flush 0.5-20 mL 0.5-20 mL intra-catheter Q8H GALINA spironolactone (ALDACTONE) split tablet 12.5 mg 12.5 mg oral Daily Continuous Meds: Current Facility-Administered Medications Medication Dose Route Frequency Last Admin PRN Meds: PRN Medications Medication Dose Route Frequency Last Admin calcium carbonate (TUMS) chewable tablet 500 mg 200 mg of elemental calcium oral TID PRN 500 mg at 07/29/24 1301 Carrier Fluids for Secondary Infusion - 0.9% Sodium Chloride 30 mL intravenous PRN Carrier Fluids for Secondary Infusion - 0.9% Sodium Chloride 30 mL intravenous PRN 30 mL at 07/25/24 1621 cyclobenzaprine (FLEXERIL) tablet 5 mg 5 mg oral TID PRN 5 mg at 07/23/24 1133 dextrose gel in packet 15 g 15 g oral Q15 Min PRN Or dextrose (D10W) 10% bolus 250 mL 250 mL intravenous Q15 Min PRN glucagon injection 1 mg 1 mg intramuscular Q30 Min PRN 1 mg at 07/21/24 1420 lidocaine (LMX) 4 % cream 1 Application 1 Application topical QID PRN ondansetron ODT (ZOFRAN-ODT) disintegrating tablet 4 mg 4 mg oral Q6H PRN Or ondansetron (ZOFRAN) injection 4 mg 4 mg intravenous Q6H PRN 4 mg at 07/25/24 213 polyethylene glycol (MIRALAX) packet 17 g 17 g oral Daily PRN 17 g at 07/21/24 142 ramelteon (ROZEREM) tablet 8 mg 8 mg oral Nightly PRN 8 mg at 07/29/242133 sodium chloride 0.9% flush 0.5-20 mL 0.5-20 mL intra-catheter PRN sodium chloride 0.9% flush 0.5-20 mL 0.5-20 mL intra-catheter PRN Physical Exam Physical Exam: Gen: No apparent distress. Resting comfortably. Cooperative. HEENT: No conjunctival pallor or injection, no icterus. No nasal discharge. Moist mucus membranes. Cardiac: Irregularly irregular rate and rhythm, normal S1/S2. No murmurs appreciated Pulm: Clear to auscultation bilaterally without crackles, wheezes, rhonchi Abdomen: Soft. No tenderness or distension. Extremity: Warm. No edema. No clubbing or cyanosis. Neuro: Alert and orientedx3. No focal deficits. Voiced understanding on reason for being in hospital, benefits from simple explanations Skin: No lesions, erythema, or skin changes. Psych: Mood appropriate. Limited insight this AM Laboratory Results Recent Results (from the past 24 hour(s)) POCT glucose Collection Time: 08/01/24 11:41 AM Result Value Ref Range Glucose, POC 232 (H) 70 - 199 mg/dL POCT glucose Collection Time: 08/01/24 2:44 PM Result Value Ref Range Glucose, POC 91 70 - 199 mg/dL POCT glucose Collection Time: 08/01/24 4:48 PM Result Value Ref Range Glucose, POC 231 (H) 70 - 199 mg/dL POCT glucose Collection Time: 08/01/24 8:55 PM Result Value Ref Range Glucose, POC 192 70 - 199 mg/dL CBC without differential Collection Time: 08/01/24 8:56 PM Result Value Ref Range WBC 6.3 3.8 - 9.9 K/cumm Hgb 11.3 (L) 11.9 - 15.5 g/dL Hct 34.4 (L) 35.6 - 45.5 % Plt 228 150 - 400 K/cumm MPV 9.7 9.1 - 12.3 fL RBC 3.49 (L) 3.90 - 5.20 M/cumm MCV 98.6 (H) 81.3 - 96.4 fL MCH 32.4 27.1 - 33.3 pg MCHC 32.8 32.3 - 35.7 g/dL RDW CV 13.2 11.1 - 14.9 % RDW SD 47.4 35.7 - 48.1 fL NRBC abs 0.00 0.00 - 0.01 K/cumm Comprehensive metabolic panel Collection Time: 08/01/24 8:56 PM Result Value Ref Range Sodium 136 135 - 145 mmol/L Potassium, pl 3.8 3.3 - 4.9 mmol/L Chloride 99 97 - 110 mmol/L CO2 28 22 - 32 mmol/L Anion gap 9 2 - 15 mmol/L BUN 20 6 - 25 mg/dL Creatinine 0.93 0.60 - 1.10 mg/dL Glucose 191 70 - 199 mg/dL Calcium 9.3 8.5 - 10.3 mg/dL Bilirubin, total 0.2 0.1 - 1.2 mg/dL Protein, pl 7.0 6.5 - 8.5 g/dL Albumin 3.2 (L) 3.5 - 5.0 g/dL Alk phos 151 (H) 40 - 130 Units/L ALT 18 7 - 45 Units/L AST 31 10 - 45 Units/L Magnesium Collection Time: 08/01/24 8:56 PM Result Value Ref Range Magnesium 2.1 1.4 - 2.5 mg/dL eGFR Collection Time: 08/01/24 8:56 PM Result Value Ref Range eGFR 69 >=60 mL/min/1.73 m2 POCT glucose Collection Time: 08/02/24 8:33 AM Result Value Ref Range Glucose, POC 142 70 - 199 mg/dL Imaging Results Transesophageal Echo (GT) W Doppler/CF Patient name: Lei Rodriguez Date of test: 07/27/2024 Date of : 1960 (F) Hospital #: [id number] Location: [facility] [facility] Card[facility] Lab Interpreted by: Hernan Phelps MD Statistics Teacher: Russel Workman MD RN: Reason for Test: [...] 2=Hypo 3=Akinetic 4=Dyskin. 5=Aneurysm 0=Not visualized) Short Okarche-Gastric:=2 S=2 I=2 P=2 L=2 A=2 Long Okarche-Gastric:BP=2 BA=2 MP=2 MA=2 AP=2 AA=2 Chamber Dimensions: RA: mildly increased LA: markedly increased RV: mildly dilated LV: moderately dilated LV function: Severe global left ventricular dysfunction. RV function: see Summary Pericardium: No pericardial effusion seen Diastolic function: not assessed Atrial Septum: Normal Wall Thickness: RV: Normal LV: Normal Sedation/Tolerance: Sedation: GT performed with intravenous conscious sedation. Meds Admin: [...] seen, Mild-moderate MR, severe TV regurgitation, Mild LA. GT Summary Russel Workman performed the GT probe placement with Hernan Phelps MD present. [...] 07/27/2024 - 16:25:20 by Hernan Phelps MD Abrasive Sawyer: Russel Workman By signing this report, the attending arboreal scientist certifies that he or she has personally supervised and interpreted the echocardiogram and has reviewed and or edited and agrees with the written comments contained within the report. ASSESSMENT & PLAN Lei Rodriguez is a 63 y.o. female with a PMHx significant for MSSA bacteremia (05/2024), A-fib,HFrEF (EF 30%), T2DM, GERD, Intellectual disability, OAB, JOSE, and hypothyroidism who presented to OSH 06/28 for back pain. Found to have + blood cx for staph aureus and CT c/f OM, transferred to [facility] for further evaluation/treatment. 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 Repeat GT 07/27 demonstrated persistent vegetation, with ongoing discussions regarding optimal approach to antibiotics and secondary VT/VF prevention. #MSSA TV Endocarditis, recurrent, secondary to infected ICD lead #History of Vfib/VT Recent admit 05/2024 for MSSA bacteremia. Per outside hospital, TTE and GT at the time without vegetations on valves/ICD. S/p 4 weeks of IV Ancef ending 06/21. Review of ID notes from OSH show blood cultures remained clear on 06/13. 07/01 blood cx were drawn x2, 1/ then second set 2/2 MSSA. Vanc + Ancef started, Vanc d/c 07/03. 07/02, 07/07 cx NGTD. Recurrence due to lack of source control on ICD. Patient found to have had shocks 06/10/24 for ventricular arrhythmia, not pacer dependent. S/p explant on 07/13/24 with path confirming MSSA on ICD lead. Also found to have TV endocarditis with vegetation visualized on GT 07/10, 07/13, persistent on 07/27 (1.2 x 0.9 cm 07/13 vs 1.0 x 1.1 cm on 07/27). Patient found to have retained wire in PA, representing persistent potential source and precluding any future MRI per discussion with radiology. Underwent PET 07/23/24 to rule out osteo of spine. Will need lifetime antibiotic suppression. Per multidisciplinary discussion with CTS, valvular prior to ICD explant, not a candidate for angiovac or TV surgery given clearing BCx, moderate vegetation size, without significant valve dysfunction, and sisters strongly against open heart surgery (see CTS brief note 07/11/24). Also not a candidate for removal of retained wire, extremely high risk per CTS/Vascular. Current Plan: - Antibiotics: - For treatment of infective endocarditis, s/p Ancef q8h 07/13-. Following discussion with ID on 07/25, started patient on Dalbavancin 07/25, planned for repeat 08/01 to provide 6 weeks MSSA IE coverage - For lifetime suppression given retained wire, cefadroxil 1 mg PO BID started 07/25 - VF/VT secondary prevention: - Continuous telemetry - transvenous ICD cannot be replaced until TV vegetation clears. Plan for repeat GT in 4 weeks (08/24) to reassess TV endocarditis - Discharge with [facility] #Hx of intellectual disability/developmental delay #Agitation #Concern for suicidality Sister Dilia currently takes care of patient, other sister Peg assists. Both discuss pt medical decisions together. Patient is not consentable - As in interval history 07/18, patient expressed sentiments of preferring to over remaining in hospital. Per assessment by primary team, not felt to be actively suicidal at this time, deferred sitter - Psychiatry consulted, appreciate further recommendations. Haldol 2 mg PRN for agitation, avoid further benzos due to concern of delirium #HFrEF - compensated EF of 30% on 05/2024 echocardiogram, mild-mod MR, RVSP 42 mild-mod TR. HFrEF dates back to at [id number], etiology not established. S/p CTA coronary 07/16 without CAD, sarcoid PET 07/23/24 without inflammation. - Daily furosemide 40 (home med) - On admission, GDMT Entresto 24-26 BID (did not increase further, felt limited by BPs) and metoprolol (increased during admission for rate control, see below) - Initiated spironolactone 12.5 mg, not on Farxiga due to recurrent UTI #Persistent atrial fibrillation #MAULIK Thrombus In AFib throughout admission. Previously on Tikosyn, however, taken off of Tikosyn after admission for MSSA, and was continued on Xarelto for AC and Coreg for rate control. GT in May 2024 performed to eval for endocarditis showed LA thrombus while on Xarelto. At OSH just prior to this admission, patient had RVR and received dual tim blockade with dilt and metoprolol, stopped dilt 2/2 reduced EF and continued on metoprolol. - Metoprolol succinate increased to 75 after symptomatic RVR on 07/18, increase to 100 07/27 due to rates 130s and transient into 150s - anticoagulation: heparin gtt -> Eliquis 07/14 #T2DM Home regimen: glargine 18u; Lispro 10 TID + SSI. A1c here 7.7 on 07/07/24. - Currently on Lantus 26 and mealtime 9 TID + HDSSI given hyperglycemia - Has been poorly controlled during admission due to inconsistency in diet and willingness to receive insulin. Episode of hypoglycemia 07/21 after patient received insulin then refused to eat any food, other times eating but refuses insulin - POC glucose TIDAC #Anemia: Hgb 10.8 on arrival. Bl: 11-12. MCV elevated. B12 > 1000 at OSH, Folate wnl. CTM #Recurrent UTI #OAB Per family, has been treated multiple times recently for UTIs. Her symptoms are not urinary in nature, her symptoms typically are becoming delirious and belligerent. UA at outside hospital with 0-5 WBC, 3+ nitrate. Cx was performed which showed >100,000 colonies E coli and per documentation completed course of ceftriaxone for UTI. - Given ongoing concerns with family surrounding possible UTI, repeated UA 07/19 negative - Home Vibegron 75 --> change to Mirabegron for formulary #MARK, resolved: Cr elevated to 1.66 in PM 07/18 labs, FeUrea prerenal, suspected in setting of transient hypotension during RVR on 07/18. Resolved without treatment. #Hypothyroidism: Synthroid 75mcg, TSH 2.8 #Depression: Continue Lexapro 10, nortriptyline 10. Moved nortriptyline to PM dosing per psychiatryrecommendations #GERD: Pantoprazole 20 #Constipation: Senna-Docusate BID #JOSE: Patient reportedly intermittently compliant at home on CPAP. Patient declined daily, dc'ed after 2 weeks of daily refusal Dispo Planning: - [facility] on discharge - , discussion with family regarding d/c home with supervision or SNF Code Status: Full Code Disposition: pending Best contact: Primary Emergency Contact: Dilia Moise Diet: Adult Diet Restricted; 2 GM Sodium; Consistent Carbohydrate; Send on Disposables VTE Prophylaxis: Eliquis PT: PT Recommendation/Plan: Jail Facility OT:OT Recommendation: Jail Facility Rambo Holder Cosigned by Suman Chávez MD at 08/02/2024 6:10 PM CDT Associated attestation - Suman Chávez MD - 08/02/2024 6:10 PM CDT Attending Documentation I have seen and examined the patient on 08/02/24. I agree with the findings and plan of care as documented in the resident's/fellow's note. Patient is being d/c home today. Supplementary Attestation Today, I am treating the patient for ICED infection s/p extraction, Tricuspid valve endocarditis which is in moderate exacerbation, progression, or experiencing treatment side effects as evidenced byclinical and imaging, as described in the note. Suman Chávez MD 08/02/2024 6:08 PM * Irma May DPT - 08/02/2024 10:12 AM CDT Physical Therapy Physical Therapy Progress Note NOTE: This is a summary note of the vaz components of the treatment session. For full details, review chart for all flowsheets documented on by this physical therapy clinician on this date. Vital signs documented in vital signs flowsheet. Care plan progress documented in Care Plan Activity. For questions, please review the treatment team and contact the PT or TOOL AND DIE MACHINIST currently assigned to this patient. If a physical therapy clinician is not assigned to this patient, please call [phone]. 08/02/24 1012 PT Last Visit Session Type Treatment PT Received On 08/02/24 Safe Environment Arm band checked;Patient found in supine;Gait belt utilized for all out of bed mobility Subjective Agreeable to Therapy Family/Caregiver Present No Precautions Precautions Fall risk Activity Tolerance Activity Tolerance Comments TIMMY: FL Pain Assessment Pain Assessment No/denies pain Cognition Arousal/Alertness Alert;Appropriate responses to stimuli Orientation Oriented X4 (person, place, time, situation) Following Commands Follows all commands and directions without difficulty Compliance/Behavior Easy to engage Static Sitting Balance Static Sitting-Balance Support Feet supported;No upper extremity supported Static Sitting-Sitting Surface Bed Static Sitting-Level of Assistance Independent Static Standing Balance Static Standing-Balance Support Bilateral upper extremity supported Static Standing-Standing Surface Floor Static Standing-Level of Assistance Close supervision Static Standing-Comment/# of Minutes with WW Bed Mobility Bed Mobility Yes Bed Mobility 1 Bed Mobility From 1 Supine Bed Mobility Type 1 To Bed Mobility to 1 Edge of bed Level of Assistance 1 Standby Assist Bed Mobility Comments 1 for safety Transfers Transfer Yes Transfer 1 Transfer From 1 Sit Transfer Type 1 To and from Transfer to 1 Stand Technique 1 Sit to stand;Stand to sit Transfer Device 1 Wheeled walker Transfer Level of Assistance 1 Standby Assist Trials/Comments 1 for safety Ambulation Ambulation Yes Ambulation 1 Distance (ft) 1 120 Surface 1 Level tile Device 1 Wheeled walker (3WW) Other Apparatus 1 Wheelchair follow Assistance 1 Contact Guard Assist Gait: Requires assist with 1 Maintaining balance Gait: Requires verbal cues to 1 Pace activity;Prevent bumping into environmental barriers (clayton/furniture) Ambulation Comments 1 CGA for safety only 2/2 impaired safety awareness Stairs Stairs No Other Comments Other PT Comments Pt. tolerates session well with VSS, poor safety awareness. Basic Mobility - 6 Click How much difficulty does the patient have: Turning over in bed 4 How much difficulty does the patient currently have: Sitting down and standing up from a chair witharms? 4 How much difficulty does the patient have: Moving from lying on back to sitting on the side of the bed? 4 How much difficulty does the patient have: Moving to and from a bed to a chair including wheelchair? 3 How much help does the patient currently need: Walk in hospital room? 3 How much help from another person does the patient currently need: Climbing 3-5 steps with a railing? 3 Total 6 Click Score (range 6-24) 21 Score Interpretation 45.55 Safe Environment End of Therapy Session Safe Environment End of Therapy Session RN notified;Call light within reach;Patient left sitting atedge of bed Assessment Prognosis Good Problem List Gait deviations;Decreased strength;Decreased endurance;Impaired balance Plan Plan If this is the last note, consider this the discharge summary;Alter current plan Plan Comments Decreased Freq and change rec Recommendation/Plan PT Recommendation/Plan Home with 24 hour supervision PT Frequency during current admission 2-3x/wk PT - Next Appointment 08/06/24 Time Calculation Start Time 1012 Stop Time 1027 Time Calculation (min) 15 min Multi-Disciplinary Problems (from Physical Therapy) Active Problems Problem: Mobility Start Date: 07/08/24 Goal Start Date Expected End Date End Date LTG - Patient will ambulate community distance 07/08/24 09/09/24 -- Goal Details: With LRAD and mod I Goal Start Date Expected End Date End Date STG - Patient will ambulate 07/08/24 08/13/24 -- Goal Details: 150' with LRAD, DS Goal Start Date Expected End Date End Date STG - Patient will ascend and descend 2 stairs with the following level of assist: 07/08/24 08/13/24 -- Goal Details: SBA and no handrail Problem: Transfers Start Date: 07/08/24 Goal Start Date Expected End Date End Date STG - Patient will transfer sit to and from stand 07/08/24 08/13/24 -- Goal Details: DS Problem: PT Misc Start Date: 07/08/24 Goal Start Date Expected End Date End Date PT STG - Patient and caregivers will participate in and demonstrate understanding of therapeutic exercise and safe mobility strategies to improve independence with functional mobility. 07/08/24 08/13/24 -- * Irma May DPT - 08/01/2024 11:42 AM CDT Physical Therapy 08/01/24 1141 General PT Missed Visit Reason Patient declined;Asleep (Refused first attempt, asleep second attempt) Recommendation/Plan PT Frequency during current admission 3-5x/wk PT - Next Appointment 08/02/24 * Calderon Harmon MD - 08/01/2024 9:31 AM CDT Medicine Daily Progress Note Patient: Lei Rodriguez : 1960 (63 y.o.) Date of Admission: 07/07/2024 Date of Service: 08/01/24 SUBJECTIVE Interval Events: - NAEON (labs hemolyzed, re-drawn), VSS, net +360 ml (no UOP charted) - PE: no changes - BMP, CBC stable, BG 216 - Tele: AFib rates 80s-90s, LBBB - No acute concerns this AM. Reports lower back pain, controlled with lidocaine patches PRN. Plan for Today: - Spoke to sisters, state pt will wear life vest if framed it will save your life. Sisters aware of plan for dc with life vest and would like teaching - Dalba on day of discharge with Life vest, tentatively 08/02 - Outpatient ID referral - Outpatient EP referral - F/u Jardiance 10 mg daily initiation outpatient - Per ID team, adequate coverage with Dalba + Cefadroxil. Recommend against IV OPAT. - Per prior discussion with EP, not a candidate for transvenous ICD replacement while TV vegetationpersists and sICD (though not optimal given patient body habitus). Will need a repeat GT in 4 weeks to reassess resolution of TV endocarditis. Ok to discharge with [facility]. OBJECTIVE Vitals Most Recent: Vitals: 08/01/24 0512 BP: 118/64 Pulse: 94 Resp: 20 Temp: SpO2: 98% 24 Hour Min/Max: Temp Min: 36.5 ??C (97.7 ??F) Max: 36.5 ??C (97.7 ??F) Pulse Min: 90 Max: 95 BP Min: 118/64 Max: 145/72 Resp Min: 20 Max: 20 SpO2 Min: 97 % Max: 98 % Intake/Output Intake/Output Summary (Last 24 hours) at 08/01/2024 0611 Last data filed at 08/01/2024 0515 Gross per 24 hour Intake 360 ml Output -- Net 360 ml Current Medications Scheduled Meds: Scheduled Medications Medication Dose Route Frequency acetaminophen (TYLENOL) tablet 1,000 mg 1,000 mg oral Q8H apixaban (ELIQUIS) tablet 5 mg 5 mg oral Q12H GALINA cefadroxil (DURICEF) 500 mg capsule 1,000 mg 1,000 mg oral BID escitalopram (LEXAPRO) tablet 10 mg 10 mg oral Daily furosemide (LASIX) tablet 40 mg 40 mg oral Daily insulin glargine (LANTUS, SEMGLEE) 100 unit/mL injection 26 Units 26 Units subcutaneous QAM insulin lispro (HumaLOG, ADMELOG) 100 unit/mL injection 0-10 Units 0-10 Units subcutaneous TID withmeals insulin lispro (HumaLOG, ADMELOG) 100 unit/mL injection 0-5 Units 0-5 Units subcutaneous Nightly insulin lispro (HumaLOG, ADMELOG) 100 unit/mL injection 11 Units 11 Units subcutaneous TID with meals levothyroxine (SYNTHROID) tablet 75 mcg 75 mcg oral Daily - 0600 lidocaine (ASPERCREME) 4 % patch 1 patch 1 patch transdermal Q24H magnesium oxide (MAG-OX) tablet 800 mg 800 mg oral Daily metoprolol XL (TOPROL-XL) extended release tablet 100 mg 100 mg oral Daily mirabegron ER (MYRBETRIQ) extended release tablet 25 mg 25 mg oral Daily nortriptyline (PAMELOR) capsule 10 mg 10 mg oral Nightly pantoprazole DR (PROTONIX) extended release tablet 20 mg 20 mg oral Daily polyethylene glycol (MIRALAX) packet 17 g 17 g oral BID sacubitriL-valsartan (ENTRESTO) 24-26 mg tablet 1 tablet 1 tablet oral BID senna-docusate (PERICOLACE) 8.6-50 mg per tablet 1 tablet 1 tablet oral BID sodium chloride 0.9% flush 0.5-20 mL 0.5-20 mL intra-catheter Q8H GALINA sodium chloride 0.9% flush 0.5-20 mL 0.5-20 mL intra-catheter Q8H GALINA spironolactone (ALDACTONE) split tablet 12.5 mg 12.5 mg oral Daily Continuous Meds: Current Facility-Administered Medications Medication Dose Route Frequency Last Admin PRN Meds: PRN Medications Medication Dose Route Frequency Last Admin calcium carbonate (TUMS) chewable tablet 500 mg 200 mg of elemental calcium oral TID PRN 500 mg at 07/29/24 1301 Carrier Fluids for Secondary Infusion - 0.9% Sodium Chloride 30 mL intravenous PRN Carrier Fluids for Secondary Infusion - 0.9% Sodium Chloride 30 mL intravenous PRN 30 mL at 07/25/24 1621 cyclobenzaprine (FLEXERIL) tablet 5 mg 5 mg oral TID PRN 5 mg at 07/23/24 1133 dextrose gel in packet 15 g 15 g oral Q15 Min PRN Or dextrose (D10W) 10% bolus 250 mL 250 mL intravenous Q15 Min PRN glucagon injection 1 mg 1 mg intramuscular Q30 Min PRN 1 mg at 07/21/24 1420 lidocaine (LMX) 4 % cream 1 Application 1 Application topical QID PRN ondansetron ODT (ZOFRAN-ODT) disintegrating tablet 4 mg 4 mg oral Q6H PRN Or ondansetron (ZOFRAN) injection 4 mg 4 mg intravenous Q6H PRN 4 mg at 07/25/24 2133 polyethylene glycol (MIRALAX) packet 17 g 17 g oral Daily PRN 17 g at 07/21/24 1422 ramelteon (ROZEREM) tablet 8 mg 8 mg oral Nightly PRN 8 mg at 07/29/24 2134 sodium chloride 0.9% flush 0.5-20 mL 0.5-20 mL intra-catheter PRN sodium chloride 0.9% flush 0.5-20 mL 0.5-20 mL intra-catheter PRN Physical Exam Physical Exam: Gen: No apparent distress. Resting comfortably. Cooperative. HEENT: No conjunctival pallor or injection, no icterus. No nasal discharge. Moist mucus membranes. Cardiac: Irregularly irregular rate and rhythm, normal S1/S2. No murmurs appreciated Pulm: Clear to auscultation bilaterally without crackles, wheezes, rhonchi Abdomen: Soft. No tenderness or distension. Extremity: Warm. No edema. No clubbing or cyanosis. Neuro: Alert and orientedx3. No focal deficits. Voiced understanding on reason for being in hospital, benefits from simple explanations Skin: No lesions, erythema, or skin changes. Psych: Mood appropriate. Limited insight this AM Laboratory Results Recent Results (from the past 24 hour(s)) POCT glucose Collection Time: 07/31/24 8:14 AM Result Value Ref Range Glucose, POC 211 (H) 70 - 199 mg/dL POCT glucose Collection Time: 07/31/24 11:34 AM Result Value Ref Range Glucose, POC 316 (H) 70 - 199 mg/dL POCT glucose Collection Time: 07/31/24 5:23 PM Result Value Ref Range Glucose, POC 153 70 - 199 mg/dL CBC without differential Collection Time: 07/31/24 10:13 PM Result Value Ref Range WBC 6.3 3.8 - 9.9 K/cumm Hgb 11.6 (L) 11.9 - 15.5 g/dL Hct 35.7 35.6 - 45.5 % Plt 266 150 - 400 K/cumm MPV 9.6 9.1 - 12.3 fL RBC 3.67 (L) 3.90 - 5.20 M/cumm MCV 97.3 (H) 81.3 - 96.4 fL MCH 31.6 27.1 - 33.3 pg MCHC 32.5 32.3 - 35.7 g/dL RDW CV 13.2 11.1 - 14.9 % RDW SD 47.4 35.7 - 48.1 fL NRBC abs 0.00 0.00 - 0.01 K/cumm Comprehensive metabolic panel Collection Time: 07/31/24 10:13 PM Result Value Ref Range Sodium 138 135 - 145 mmol/L Potassium, pl 4.2 3.3 - 4.9 mmol/L Chloride 100 97 - 110 mmol/L CO2 28 22 - 32 mmol/L Anion gap 10 2 - 15 mmol/L BUN 27 (H) 6 - 25 mg/dL Creatinine 1.04 0.60 - 1.10 mg/dL Glucose 216 (H) 70 - 199 mg/dL Calcium 9.6 8.5 - 10.3 mg/dL Bilirubin, total 0.2 0.1 - 1.2 mg/dL Protein, pl 7.2 6.5 - 8.5 g/dL Albumin 3.4 (L) 3.5 - 5.0 g/dL Alk phos 161 (H) 40 - 130 Units/L ALT 18 7 - 45 Units/L AST 26 10 - 45 Units/L Magnesium Collection Time: 07/31/24 10:13 PM Result Value Ref Range Magnesium 1.9 1.4 - 2.5 mg/dL eGFR Collection Time: 07/31/24 10:13 PM Result Value Ref Range eGFR 61 >=60 mL/min/1.73 m2 Potassium, whole blood Collection Time: 08/01/24 5:22 AM Result Value Ref Range Potassium, bld 4.2 3.3 - 4.9 mmol/L Imaging Results Transesophageal Echo (GT) W Doppler/CF Patient name: Lei Rodriguez Date of test: 07/27/2024 Date of : 1960 () Hospital #: 0 Location: [facility] Cardiac Diagnostic Lab Interpreted by: Hernan Phelps MD Statistics Teacher: Russel Workman MD RN: Reason for Test: [...] 2=Hypo 3=Akinetic 4=Dyskin. 5=Aneurysm 0=Not visualized) Short Okarche-Gastric:=2 S=2 I=2 P=2 L=2 A=2 Long Okarche-Gastric:BP=2 BA=2 MP=2 MA=2 AP=2 AA=2 Chamber Dimensions: RA: mildly increased LA: markedly increased RV: mildly dilated LV: moderately dilated LV function: Severe global left ventricular dysfunction. RV function: see Summary Pericardium: No pericardial effusion seen Diastolic function: not assessed Atrial Septum: Normal Wall Thickness: RV: Normal LV: Normal Sedation/Tolerance: Sedation: GT performed with intravenous conscious sedation. Meds Admin: [...] seen, Mild-moderate MR, severe TV regurgitation, Mild LA. GT Summary Russel Workman performed the GT probe placement with Hernan Phelps MD present. [...] 07/27/2024 - 16:25:20 by Hernan Phelps MD Abrasive Sawyer: Russel Workman By signing this report, the attending arboreal scientist certifies that he or she has personally supervised and interpreted the echocardiogram and has reviewed and or edited and agrees with the written comments contained within the report. ASSESSMENT & PLAN Lei Rodriguez is a 63 y.o. female with a PMHx significant for MSSA bacteremia (05/2024), A-fib,HFrEF (EF 30%), T2DM, GERD, Intellectual disability, OAB, JOSE, and hypothyroidism who presented to OSH 06/28 for back pain. Found to have + blood cx for staph aureus and CT c/f OM, transferred to [facility] for further evaluation/treatment. 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 Repeat GT 07/27 demonstrated persistent vegetation, with ongoing discussions regarding optimal approach to antibiotics and secondary VT/VF prevention. #MSSA TV Endocarditis, recurrent, secondary to infected ICD lead #History of Vfib/VT Recent admit 05/2024 for MSSA bacteremia. Per outside hospital, TTE and GT at the time without vegetations on valves/ICD. S/p 4 weeks of IV Ancef ending 06/21. Review of ID notes from OSH show blood cultures remained clear on 06/13. 07/01 blood cx were drawn x2, / then second set / MSSA. Vanc + Ancef started, Vanc d/c 07/03. 07/02, 07/07 cx NGTD. Recurrence due to lack of source control on ICD. Patient found to have had shocks 06/10/24 for ventricular arrhythmia, not pacer dependent. S/p explant on 07/13/24 with path confirming MSSA on ICD lead. Also found to have TV endocarditis with vegetation visualized on GT 07/10, 07/13, persistent on 07/27 (1.2 x 0.9 cm 07/13 vs 1.0 x 1.1 cm on 07/27). Patient found to have retained wire in PA, representing persistent potential source and precluding any future MRI per discussion with radiology. Underwent PET 07/23/24 to rule out osteo of spine. Will need lifetime antibiotic suppression. Per multidisciplinary discussion with CTS, valvular prior to ICD explant, not a candidate for angiovac or TV surgery given clearing BCx, moderate vegetation size, without significant valve dysfunction, and sisters strongly against open heart surgery (see CTS brief note 07/11/24). Also not a candidate for removal of retained wire, extremely high risk per CTS/Vascular. Current Plan: - Antibiotics: - For treatment of infective endocarditis, s/p Ancef q8h 07/13-. Following discussion with ID on 07/25, started patient on Dalbavancin 07/25, planned for repeat 08/01 to provide 6 weeks MSSA IE coverage - For lifetime suppression given retained wire, cefadroxil 1 mg PO BID started 07/25 - VF/VT secondary prevention: - Continuous telemetry - transvenous ICD cannot be replaced until TV vegetation clears. Plan for repeat GT in 4 weeks (08/24) to reassess TV endocarditis - [id number] [facility] #Hx of intellectual disability/developmental delay #Agitation #Concern for suicidality Sister Dilia currently takes care of patient, other sister Peg assists. Both discuss pt medical decisions together. Patient is not consentable - As in interval history 07/18, patient expressed sentiments of preferring to over remaining in hospital. Per assessment by primary team, not felt to be actively suicidal at this time, deferred sitter - Psychiatry consulted, appreciate further recommendations. Haldol 2 mg PRN for agitation, avoid further benzos due to concern of delirium #HFrEF - compensated EF of 30% on 05/2024 echocardiogram, mild-mod MR, RVSP 42 mild-mod TR. HFrEF dates back to at [id number], etiology not established. S/p CTA coronary 07/16 without CAD, sarcoid PET 07/23/24 without inflammation. - Daily furosemide 40 (home med) - On admission, GDMT Entresto 24-26 BID (did not increase further, felt limited by BPs) and metoprolol (increased during admission for rate control, see below) - Initiated spironolactone 12.5 mg, not on Farxiga due to recurrent UTI #Persistent atrial fibrillation #MAULIK Thrombus In AFib throughout admission. Previously on Tikosyn, however, taken off of Tikosyn after admission for MSSA, and was continued on Xarelto for AC and Coreg for rate control. GT in May 2024 performed to eval for endocarditis showed LA thrombus while on Xarelto. At OSH just prior to this admission, patient had RVR and received dual tim blockade with dilt and metoprolol, stopped dilt 2/2 reduced EF and continued on metoprolol. - Metoprolol succinate increased to 75 after symptomatic RVR on 07/18, increase to 100 07/27 due to rates 130s and transient into 150s - anticoagulation: heparin gtt -> Eliquis 07/14 #T2DM Home regimen: glargine 18u; Lispro 10 TID + SSI. A1c here 7.7 on 07/07/24. - Currently on Lantus 26 and mealtime 9 TID + HDSSI given hyperglycemia - Has been poorly controlled during admission due to inconsistency in diet and willingness to receive insulin. Episode of hypoglycemia 07/21 after patient received insulin then refused to eat any food, other times eating but refuses insulin - POC glucose TIDAC #Anemia: Hgb 10.8 on arrival. Bl: 11-12. MCV elevated. B12 > 1000 at OSH, Folate wnl. CTM #Recurrent UTI #OAB Per family, has been treated multiple times recently for UTIs. Her symptoms are not urinary in nature, her symptoms typically are becoming delirious and belligerent. UA at outside hospital with 0-5 WBC, 3+ nitrate. Cx was performed which showed >100,000 colonies E coli and per documentation completed course of ceftriaxone for UTI. - Given ongoing concerns with family surrounding possible UTI, repeated UA 07/19 negative - Home Vibegron 75 --> change to Mirabegron for formulary #MARK, resolved: Cr elevated to 1.66 in PM 07/18 labs, FeUrea prerenal, suspected in setting of transient hypotension during RVR on 07/18. Resolved without treatment. #Hypothyroidism: Synthroid 75mcg, TSH 2.8 #Depression: Continue Lexapro 10, nortriptyline 10. Moved nortriptyline to PM dosing per psychiatryrecommendations #GERD: Pantoprazole 20 #Constipation: Senna-Docusate BID #JOSE: Patient reportedly intermittently compliant at home on CPAP. Patient declined daily, dc'ed after 2 weeks of daily refusal Dispo Planning: - [facility] on discharge - CM, discussion with family regarding d/c home with supervision or SNF Code Status: Full Code Disposition: pending Best contact: Primary Emergency Contact: Dilia Moise Diet: Adult Diet Restricted; 2 GM Sodium; Consistent Carbohydrate; Send on Disposables VTE Prophylaxis: Eliquis PT: PT Recommendation/Plan: Jail Facility OT:OT Recommendation: Jail Facility Calderon Harmon MD PGY-1 Internal Medicine Cosigned by Suman Chávez MD at 08/01/2024 1:38 PM CDT Associated attestation - Suman Chávez MD - 08/01/2024 1:38 PM CDT Attending Documentation I have seen and examined the patient on 08/01/24. I agree with the findings and plan of care as documented in the resident's/fellow's note.Patient with ICED infection s/p extraction and endocarditis of tricuspid valve, waiting for life vest. Clinically stable. Supplementary Attestation Today, I am treating the patient for endocarditis which is in moderate exacerbation, progression, or experiencing treatment side effects as evidenced by clinical and imaging, as described in the note. Suman Chávez MD 08/01/2024 1:37 PM * Calderon Harmon MD - 07/31/2024 1:09 PM CDT Medicine Daily Progress Note Patient: Lei Rodriguez : 1960 (63 y.o.) Date of Admission: 07/07/2024 Date of Service: 07/31/24 SUBJECTIVE Interval Events: - NAEON, AFVSS, net +580 ml (no UOP charted) - PE: no changes - BMP, CBC stable, BG 227 - No acute concerns this AM. Tolerating PO and no reports of chest pain. Plan for Today: - Per ID team, adequate coverage with Dalba + Cefadroxil. Recommend against IV OPAT. - Spoke to sisters yesterday, state pt will wear life vest if framed it will save your life. Sisters aware of plan for dc with life vest - Dalba 2nd dose 08/01 and discharge home tentatively Th with Life vest - F/u Jardiance 10 mg daily initiation outpatient - Per prior discussion with EP, not a candidate for transvenous ICD replacement while TV vegetationpersists and sICD (though not optimal given patient body habitus). Will need a repeat GT in 4 weeks to reassess resolution of TV endocarditis. Ok to discharge with [facility]. - Will coordinate discharge plans with family regarding home vs. SNF with CM OBJECTIVE Vitals Most Recent: Vitals: 07/31/24 0500 BP: 130/90 Pulse: 101 Resp: 20 Temp: 36.5 ??C (97.7 ??F) SpO2: 99% 24 Hour Min/Max: Temp Min: 36.4 ??C (97.6 ??F) Max: 36.6 ??C (97.9 ??F) Pulse Min: 78 Max: 101 BP Min: 104/61 Max: 130/90 Resp Min: 20 Max: 20 SpO2 Min: 96 % Max: 99 % Intake/Output Intake/Output Summary (Last 24 hours) at 07/31/2024 0612 Last data filed at 07/31/2024 0550 Gross per 24 hour Intake 580 ml Output -- Net 580 ml Current Medications Scheduled Meds: Scheduled Medications Medication Dose Route Frequency acetaminophen (TYLENOL) tablet 1,000 mg 1,000 mg oral Q8H apixaban (ELIQUIS) tablet 5 mg 5 mg oral Q12H GALINA cefadroxil (DURICEF) 500 mg capsule 1,000 mg 1,000 mg oral BID escitalopram (LEXAPRO) tablet 10 mg 10 mg oral Daily furosemide (LASIX) tablet 40 mg 40 mg oral Daily insulin glargine (LANTUS, SEMGLEE) 100 unit/mL injection 26 Units 26 Units subcutaneous QAM insulin lispro (HumaLOG, ADMELOG) 100 unit/mL injection 0-10 Units 0-10 Units subcutaneous TID withmeals insulin lispro (HumaLOG, ADMELOG) 100 unit/mL injection 0-5 Units 0-5 Units subcutaneous Nightly insulin lispro (HumaLOG, ADMELOG) 100 unit/mL injection 11 Units 11 Units subcutaneous TID with meals levothyroxine (SYNTHROID) tablet 75 mcg 75 mcg oral Daily - 0600 lidocaine (ASPERCREME) 4 % patch 1 patch 1 patch transdermal Q24H magnesium oxide (MAG-OX) tablet 800 mg 800 mg oral Daily metoprolol XL (TOPROL-XL) extended release tablet 100 mg 100 mg oral Daily mirabegron ER (MYRBETRIQ) extended release tablet 25 mg 25 mg oral Daily nortriptyline (PAMELOR) capsule 10 mg 10 mg oral Nightly pantoprazole DR (PROTONIX) extended release tablet 20 mg 20 mg oral Daily polyethylene glycol (MIRALAX) packet 17 g 17 g oral BID sacubitriL-valsartan (ENTRESTO) 24-26 mg tablet 1 tablet 1 tablet oral BID senna-docusate (PERICOLACE) 8.6-50 mg per tablet 1 tablet 1 tablet oral BID sodium chloride 0.9% flush 0.5-20 mL 0.5-20 mL intra-catheter Q8H GALINA sodium chloride 0.9% flush 0.5-20 mL 0.5-20 mL intra-catheter Q8H GALINA sodium chloride 0.9% flush 5-10 mL 5-10 mL intra-catheter Q12H GALINA spironolactone (ALDACTONE) split tablet 12.5 mg 12.5 mg oral Daily Continuous Meds: Current Facility-Administered Medications Medication Dose Route Frequency Last Admin PRN Meds: PRN Medications Medication Dose Route Frequency Last Admin calcium carbonate (TUMS) chewable tablet 500 mg 200 mg of elemental calcium oral TID PRN 500 mg at 07/29/24 1301 Carrier Fluids for Secondary Infusion - 0.9% Sodium Chloride 30 mL intravenous PRN Carrier Fluids for Secondary Infusion - 0.9% Sodium Chloride 30 mL intravenous PRN 30 mL at 07/25/24 1621 cyclobenzaprine (FLEXERIL) tablet 5 mg 5 mg oral TID PRN 5 mg at 07/23/24 1133 dextrose gel in packet 15 g 15 g oral Q15 Min PRN Or dextrose (D10W) 10% bolus 250 mL 250 mL intravenous Q15 Min PRN glucagon injection 1 mg 1 mg intramuscular Q30 Min PRN 1 mg at 07/21/24 1420 lidocaine (LMX) 4 % cream 1 Application 1 Application topical QID PRN ondansetron ODT (ZOFRAN-ODT) disintegrating tablet 4 mg 4 mg oral Q6H PRN Or ondansetron (ZOFRAN) injection 4 mg 4 mg intravenous Q6H PRN 4 mg at 07/25/24 213 polyethylene glycol (MIRALAX) packet 17 g 17 g oral Daily PRN 17 g at 07/21/24 142 ramelteon (ROZEREM) tablet 8 mg 8 mg oral Nightly PRN 8 mg at 07/29/242133 sodium chloride 0.9% flush 0.5-20 mL 0.5-20 mL intra-catheter PRN sodium chloride 0.9% flush 0.5-20 mL 0.5-20 mL intra-catheter PRN sodium chloride 0.9% flush 5-20 mL 5-20 mL intra-catheter PRN Physical Exam Physical Exam: Gen: No apparent distress. Resting comfortably. Cooperative. HEENT: No conjunctival pallor or injection, no icterus. No nasal discharge. Moist mucus membranes. Cardiac: Irregularly irregular rate and rhythm, normal S1/S2. No murmurs appreciated Pulm: Clear to auscultation bilaterally without crackles, wheezes, rhonchi Abdomen: Soft. No tenderness or distension. Extremity: Warm. No edema. No clubbing or cyanosis. Neuro: Alert and orientedx3. No focal deficits. Voiced understanding on reason for being in hospital, benefits from simple explanations Skin: No lesions, erythema, or skin changes. Psych: Mood appropriate. Limited insight this AM Laboratory Results Recent Results (from the past 24 hour(s)) POCT glucose Collection Time: 07/30/24 8:25 AM Result Value Ref Range Glucose, POC 154 70 - 199 mg/dL POCT glucose Collection Time: 07/30/24 11:25 AM Result Value Ref Range Glucose, POC 210 (H) 70 - 199 mg/dL POCT glucose Collection Time: 07/30/24 5:06 PM Result Value Ref Range Glucose, POC 248 (H) 70 - 199 mg/dL POCT glucose Collection Time: 07/30/24 7:51 PM Result Value Ref Range Glucose, POC 78 70 - 199 mg/dL POCT glucose Collection Time: 07/30/24 11:43 PM Result Value Ref Range Glucose, POC 195 70 - 199 mg/dL CBC without differential Collection Time: 07/31/24 2:28 AM Result Value Ref Range WBC 6.0 3.8 - 9.9 K/cumm Hgb 11.3 (L) 11.9 - 15.5 g/dL Hct 34.4 (L) 35.6 - 45.5 % Plt 240 150 - 400 K/cumm MPV 9.3 9.1 - 12.3 fL RBC 3.53 (L) 3.90 - 5.20 M/cumm MCV 97.5 (H) 81.3 - 96.4 fL MCH 32.0 27.1 - 33.3 pg MCHC 32.8 32.3 - 35.7 g/dL RDW CV 13.1 11.1 - 14.9 % RDW SD 46.6 35.7 - 48.1 fL NRBC abs 0.00 0.00 - 0.01 K/cumm Comprehensive metabolic panel Collection Time: 07/31/24 2:28 AM Result Value Ref Range Sodium 139 135 - 145 mmol/L Potassium, pl 4.6 3.3 - 4.9 mmol/L Chloride 100 97 - 110 mmol/L CO2 28 22 - 32 mmol/L Anion gap 11 2 - 15 mmol/L BUN 22 6 - 25 mg/dL Creatinine 1.09 0.60 - 1.10 mg/dL Glucose 227 (H) 70 - 199 mg/dL Calcium 9.4 8.5 - 10.3 mg/dL Bilirubin, total 0.2 0.1 - 1.2 mg/dL Protein, pl 6.8 6.5 - 8.5 g/dL Albumin 3.3 (L) 3.5 - 5.0 g/dL Alk phos 141 (H) 40 - 130 Units/L ALT 8 7 - 45 Units/L AST 29 10 - 45 Units/L Magnesium Collection Time: 07/31/24 2:28 AM Result Value Ref Range Magnesium 2.0 1.4 - 2.5 mg/dL eGFR Collection Time: 07/31/24 2:28 AM Result Value Ref Range eGFR 57 (L) >=60 mL/min/1.73 m2 Imaging Results Transesophageal Echo (GT) W Doppler/CF Patient name: Lei Rodriguez Date of test: 07/27/2024 Date of : 1960 () [facility] #: 0 Location: [facility] Cardiac Diagnostic Lab Interpreted by: Hernan Phelps MD Statistics Teacher: Russel Workman MD RN: Reason for Test: [...] 2=Hypo 3=Akinetic 4=Dyskin. 5=Aneurysm 0=Not visualized) Short [place]kar[place]-Gastric:=2 S=2 I=2 P=2 L=2 A=2 Long [place]kar[place]-Gastric:BP=2 BA=2 MP=2 MA=2 AP=2 AA=2 Chamber Dimensions: RA: mildly increased LA: markedly increased RV: mildly dilated LV: moderately dilated LV function: Severe global left ventricular dysfunction. RV function: see Summary Pericardium: No pericardial effusion seen Diastolic function: not assessed Atrial Septum: Normal Wall Thickness: RV: Normal LV: Normal Sedation/Tolerance: Sedation: GT performed with intravenous conscious sedation. Meds Admin: [...] seen, Mild-moderate MR, severe TV regurgitation, Mild LA. GT Summary Russel Workman performed the GT probe placement with Hernan Phelps MD present. [...] 07/27/2024 - 16:25:20 by Hernan Phelps MD Abrasive Sawyer: Russel Workman By signing this report, the attending arboreal scientist certifies that he or she has personally supervised and interpreted the echocardiogram and has reviewed and or edited and agrees with the written comments contained within the report. ASSESSMENT & PLAN Lei Rodriguez is a 63 y.o. female with a PMHx significant for MSSA bacteremia (05/2024), A-fib,HFrEF (EF 30%), T2DM, GERD, Intellectual disability, OAB, JOSE, and hypothyroidism who presented to OSH 06/28 for back pain. Found to have + blood cx for staph aureus and CT c/f OM, transferred to [facility] for further evaluation/treatment. 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 Repeat GT 07/27 demonstrated persistent vegetation, with ongoing discussions regarding optimal approach to antibiotics and secondary VT/VF prevention. #MSSA TV Endocarditis, recurrent, secondary to infected ICD lead #History of Vfib/VT Recent admit 05/2024 for MSSA bacteremia. Per outside hospital, TTE and GT at the time without vegetations on valves/ICD. S/p 4 weeks of IV Ancef ending 06/21. Review of ID notes from OSH show blood cultures remained clear on 06/13. 07/01 blood cx were drawn x2, 1/ then second set 2/2 MSSA. Vanc + Ancef started, Vanc d/c 07/03. 07/02, 07/07 cx NGTD. Recurrence due to lack of source control on ICD. Patient found to have had shocks 06/10/24 for ventricular arrhythmia, not pacer dependent. S/p explant on 07/13/24 with path confirming MSSA on ICD lead. Also found to have TV endocarditis with vegetation visualized on GT 07/10, 07/13, persistent on 07/27 (1.2 x 0.9 cm 07/13 vs 1.0 x 1.1 cm on 07/27). Patient found to have retained wire in PA, representing persistent potential source and precluding any future MRI per discussion with radiology. Underwent PET 07/23/24 to rule out osteo of spine. Will need lifetime antibiotic suppression. Per multidisciplinary discussion with CTS, valvular prior to ICD explant, not a candidate for angiovac or TV surgery given clearing BCx, moderate vegetation size, without significant valve dysfunction, and sisters strongly against open heart surgery (see CTS brief note 07/11/24). Also not a candidate for removal of retained wire, extremely high risk per CTS/Vascular. Current Plan: - Antibiotics: - For treatment of infective endocarditis, s/p Ancef q8h 07/13-. Following discussion with ID on 07/25, started patient on Dalbavancin 07/25, planned for repeat 08/01 to provide 6 weeks MSSA IE coverage - For lifetime suppression given retained wire, cefadroxil 1 mg PO BID started 07/25 - VF/VT secondary prevention: - Continuous telemetry - transvenous ICD cannot be replaced until TV vegetation clears. Plan for repeat GT in 4 weeks (08/24) to reassess TV endocarditis - Discharge with Carola akins #Hx of intellectual disability/developmental delay #Agitation #Concern for suicidality Sister Dilia currently takes care of patient, other sister Peg assists. Both discuss pt medical decisions together. Patient is not consentable - As in interval history 07/18, patient expressed sentiments of preferring to over remaining in hospital. Per assessment by primary team, not felt to be actively suicidal at this time, deferred sitter - Psychiatry consulted, appreciate further recommendations. Haldol 2 mg PRN for agitation, avoid further benzos due to concern of delirium #HFrEF - compensated EF of 30% on 05/2024 echocardiogram, mild-mod MR, RVSP 42 mild-mod TR. HFrEF dates back to at [id number], etiology not established. S/p CTA coronary 07/16 without CAD, sarcoid PET 07/23/24 without inflammation. - Daily furosemide 40 (home med) - On admission, GDMT Entresto 24-26 BID (did not increase further, felt limited by BPs) and metoprolol (increased during admission for rate control, see below) - Initiated spironolactone 12.5 mg, not on Farxiga due to recurrent UTI #Persistent atrial fibrillation #MAULIK Thrombus In AFib throughout admission. Previously on Tikosyn, however, taken off of Tikosyn after admission for MSSA, and was continued on Xarelto for AC and Coreg for rate control. GT in May 2024 performed to eval for endocarditis showed LA thrombus while on Xarelto. At OSH just prior to this admission, patient had RVR and received dual tim blockade with dilt and metoprolol, stopped dilt 2/2 reduced EF and continued on metoprolol. - Metoprolol succinate increased to 75 after symptomatic RVR on 07/18, increase to 100 07/27 due to rates 130s and transient into 150s - anticoagulation: heparin gtt -> Eliquis 07/14 #T2DM Home regimen: glargine 18u; Lispro 10 TID + SSI. A1c here 7.7 on 07/07/24. - Currently on Lantus 26 and mealtime 9 TID + HDSSI given hyperglycemia - Has been poorly controlled during admission due to inconsistency in diet and willingness to receive insulin. Episode of hypoglycemia 07/21 after patient received insulin then refused to eat any food, other times eating but refuses insulin - POC glucose TIDAC #Anemia: Hgb 10.8 on arrival. Bl: 11-12. MCV elevated. B12 > 1000 at OSH, Folate wnl. CTM #Recurrent UTI #OAB Per family, has been treated multiple times recently for UTIs. Her symptoms are not urinary in nature, her symptoms typically are becoming delirious and belligerent. UA at outside hospital with 0-5 WBC, 3+ nitrate. Cx was performed which showed >100,000 colonies E coli and per documentation completed course of ceftriaxone for UTI. - Given ongoing concerns with family surrounding possible UTI, repeated UA 07/19 negative - Home Vibegron 75 --> change to Mirabegron for formulary #MARK, resolved: Cr elevated to 1.66 in PM 07/18 labs, FeUrea prerenal, suspected in setting of transient hypotension during RVR on 07/18. Resolved without treatment. #Hypothyroidism: Synthroid 75mcg, TSH 2.8 #Depression: Continue Lexapro 10, nortriptyline 10. Moved nortriptyline to PM dosing per psychiatryrecommendations #GERD: Pantoprazole 20 #Constipation: Senna-Docusate BID #JOSE: Patient reportedly intermittently compliant at home on CPAP. Patient declined daily, dc'ed after 2 weeks of daily refusal Dispo Planning: - [facility] on discharge - , discussion with family regarding d/c home with supervision or SNF Code Status: Full Code Disposition: pending Best contact: Primary Emergency Contact: Dilia Moise Diet: Adult Diet Restricted; 2 GM Sodium; Consistent Carbohydrate; Send on Disposables VTE Prophylaxis: Eliquis PT: PT Recommendation/Plan: Jail Facility OT:OT Recommendation: Jail Facility Calderon Harmon MD PGY-1 Internal Medicine Cosigned by Suman Chávez MD at 07/31/2024 4:47 PM CDT Associated attestation - Suman Chávez MD - 07/31/2024 4:47 PM CDT Attending Documentation I have seen and examined the patient on 07/31/24. I agree with the findings and plan of care as documented in the resident's/fellow's note.Patient remains clinically stable, receiving AB for tricuspid valve endocarditis and waiting for life vest. Supplementary Attestation Today, I am treating the patient for ICED and TV endocarditis, HFrEF which is in moderate exacerbation, progression, or experiencing treatment side effects as evidenced by clinical and imaging, as described in the note. Suman Chávez MD 07/31/2024 4:43 PM * Cira Vaz, PT - 07/30/2024 2:42 PM CDT Physical Therapy Physical Therapy Progress Note NOTE: This is a summary note of the vaz components of the treatment session. For full details, review chart for all flowsheets documented on by this physical therapy clinician on this date. Vital signs documented in vital signs flowsheet. Care plan progress documented in Care Plan Activity. For questions, please review the treatment team and contact the PT or TOOL AND DIE MACHINIST currently assigned to this patient. If a physical therapy clinician is not assigned to this patient, please call [phone]. 07/30/24 1442 PT Last Visit Session Type Treatment PT Received On 07/30/24 Safe Environment Arm band checked;Patient found in supine;Gait belt utilized for all out of bed mobility Subjective Agreeable to Therapy Subjective Comment Why do I have to walk? Family/Caregiver Present No Precautions Precautions Fall risk Activity Tolerance Endurance Tolerates 10 - 20 min activity with multiple rests Activity Tolerance Comments timmy: fairly light Pain Assessment Pain Assessment No/denies pain Cognition Arousal/Alertness Alert;Delayed responses to stimuli;Inconsistent responses to stimuli (inconsistent responses to questions) Compliance/Behavior Easy to engage Perseveration Present - verbal (repeatedly asks why do I need to walk despite PT answering the question multiple times) Balance Tests Balance Tests No Balance Balance Yes Static Sitting Balance Static Sitting-Balance Support Feet supported;No upper extremity supported Static Sitting-Sitting Surface Bed Static Sitting-Level of Assistance Independent Static Standing Balance Static Standing-Balance Support Bilateral upper extremity supported (three wheeled walker) Static Standing-Standing Surface Floor Static Standing-Level of Assistance Close supervision Bed Mobility Bed Mobility Yes Bed Mobility 1 Bed Mobility From 1 Supine Bed Mobility Type 1 To Bed Mobility to 1 Edge of bed Level of Assistance 1 Modified Independent Bed Mobility Comments 1 HOB elevated, used bedrail Transfers Transfer Yes Transfer 1 Transfer From 1 Sit;Bed Transfer Type 1 To and from Transfer to 1 Stand Technique 1 Sit to stand;Stand to sit Transfer Device 1 No device Transfer Level of Assistance 1 Standby Assist Ambulation Functional Ambulation Category 3 Ambulation Yes Ambulation 1 Distance (ft) 1 40' + 40' Surface 1 Level tile Device 1 Wheeled walker (3-wheeled walker) Assistance 1 Contact Guard Assist Gait: Requires verbal cues to 1 Pace activity;Prevent bumping into environmental barriers (clayton/furniture) Ambulation Comments 1 1 seated rest break Stairs Stairs No Other Comments Other PT Comments pt unable to understand purpose of PT session, often questioning why she needed to walk or move. She was pleasant and agreeable just lacked understanding. Basic Mobility - 6 Click How much difficulty does the patient have: Turning over in bed 4 How much difficulty does the patient currently have: Sitting down and standing up from a chair witharms? 3 How much difficulty does the patient have: Moving from lying on back to sitting on the side of the bed? 3 How much difficulty does the patient have: Moving to and from a bed to a chair including wheelchair? 3 How much help does the patient currently need: Walk in hospital room? 3 How much help from another person does the patient currently need: Climbing 3-5 steps with a railing? 3 Total 6 Click Score (range 6-24) 19 Safe Environment End of Therapy Session Safe Environment End of Therapy Session Patient left in recliner;Call light within reach;Overbed table within reach Assessment Prognosis Good Problem List Gait deviations;Decreased strength;Decreased endurance;Impaired balance;Decreased cognition;Impaired judgement;Decreased safety awareness;Obesity Barriers to Discharge Current Mobility Status Plan Plan Continue with current plan;If this is the last note, consider this the discharge summary Recommendation/Plan PT Recommendation/Plan Jail Facility (versus home with 24 hr assist if pt/family refuses placement) Patient at high risk for Falls;Readmission;Injury due to decreased ability to care for self;Injury due to reduced functional status;Injury due to impaired cognition;Injury due to balance deficits;Injury at home as patient has not returned to prior level of function;Mismanagement of medications;Prolonged dependence for self care tasks Recommend SNF due to Risk of injury at home;Unable to safely care for self in the home;Skilled therapy needed for patient to return to prior level of independence;Skilled therapy needed to address functional deficits;Skilled therapy needed to address care for self in the home PT Frequency during current admission 3-5x/wk Treatment/Interventions during current admission Balance Training;Bed mobility;Endurance training;Functional activity;Gait training;Therapeutic activity;Therapeutic exercise;Strengthening;Stair training Progress during current admission Progressing toward goals PT - Next Appointment 08/01/24 PT Evaluation Complete Yes Time Calculation Start Time 1442 Stop Time 1458 Time Calculation (min) 16 min Multi-Disciplinary Problems (from Physical Therapy) Active Problems Problem: Mobility Start Date: 07/08/24 Goal Start Date Expected End Date End Date LTG - Patient will ambulate community distance 07/08/24 09/09/24 -- Goal Details: With LRAD and mod I Goal Start Date Expected End Date End Date STG - Patient will ambulate 07/08/24 08/13/24 -- Goal Details: 150' with LRAD, DS Goal Start Date Expected End Date End Date STG - Patient will ascend and descend 2 stairs with the following level of assist: 07/08/24 08/13/24 -- Goal Details: SBA and no handrail Problem: Transfers Start Date: 07/08/24 Goal Start Date Expected End Date End Date STG - Patient will transfer sit to and from stand 07/08/24 08/13/24 -- Goal Details: DS Problem: PT Misc Start Date: 07/08/24 Goal Start Date Expected End Date End Date PT STG - Patient and caregivers will participate in and demonstrate understanding of therapeutic exercise and safe mobility strategies to improve independence with functional mobility. 07/08/24 08/13/24 -- * Carla Gamboa, OT - 07/30/2024 10:25 AM CDT Occupational Therapy Occupational Therapy Progress Note NOTE: This is a summary note of the vaz components of the treatment session. For full details, review chart for all flowsheets documented on by this occupational therapy clinician on this date. Vitalsigns documented in vital signs flowsheet. Care plan progress documented in Care Plan Activity. For questions, please review the treatment team and contact the occupational therapist currently assigned to this patient. If an occupational therapist is not assigned to this patient, please call [phone]. 07/30/24 1025 General Session Type Treatment OT Received On 07/30/24 Safe Environment Arm band checked;Patient found sitting at edge of bed Subjective Agreeable to Therapy Family/Caregiver Present No Precautions Precautions Fall risk Pain Assessment Pain Assessment No/denies pain Balance Balance Yes Static Sitting Balance Static Sitting-Balance Support Feet supported;Bilateral upper extremity supported Static Sitting-Sitting Surface Bed Static Sitting-Level of Assistance Independent Static Standing Balance Static Standing-Balance Support Bilateral upper extremity supported (using 3 wheeled walker) Static Standing-Standing Surface Floor Static Standing-Level of Assistance Close supervision Static Standing-Comment/# of Minutes safety ADL ADLS (WDL) X Grooming Grooming: Where assessed Edge of bed Grooming: Level of assistance Moderate Assist Grooming: Assistance with Increased time to complete;Balance;Safety LE Dressing LE Dressing: Where assessed Edge of bed LE Dressing: Level of assistance Minimum Assist LE Dressing: Assistance with Don/doff R sock;Don/doff L sock;Pull up over hips;Verbal cueing;Supervision/safety;Increased time to complete Bed Mobility Bed Mobility No (Pt found and left sitting EOB) Transfers Transfer Yes Transfer 1 Transfer From 1 Sit Transfer Type 1 To and from Transfer to 1 Stand Technique 1 Sit to stand;Stand to sit Transfer Device 1 No device Transfer Level of Assistance 1 Minimum Assist Trials/Comments 1 Min A for safety and balance Toilet Transfers Toilet Transfer From Bed Toilet Transfer Type To and from Toilet Transfer to Standard bedside commode (simulated) Toilet Transfer Technique Ambulating Toilet Transfer: Equipment Wheeled walker (3 wheeled walker) Toilet Transfers Contact guard Toilet Transfers Comments safety and balance Cognition Arousal/Alertness Alert;Delayed responses to stimuli Attention Span Attends with cues to redirect Current communication Appears Intact Orientation Oriented to person;Oriented to time Following Commands Follows multistep commands with repetition Safety Judgment Decreased awareness of need for safety Awareness of Errors Assistance required to correct errors made;Assistance required to identify errors made Insight Decreased awareness of deficits Problem Solving Assistance required to implement solutions;Assistance required to generate solutions;Assistance required to identify errors made Compliance/Behavior Easy to engage Perseveration Not present Daily Activity - 6 Clicks Putting on and taking off regular lower body clothing 3 Bathing 3 Toileting 3 Putting on and taking off upper body clothing 3 Personal Grooming 2 Eating Meals 4 Total Score (range 6-24) 18 Score Interpretation 38.66 Safe Environment End of Therapy Session Safe Environment End of Therapy Session Patient left sitting at edge of bed;Call light within reach;Overbed table within reach Assessment Problem List Decreased safe judgment during ADL;Decreased cognition;Decreased endurance;Decreased balance;Decreased functional mobility;Decreased ADL independence;Decreased IADL independence Barriers to Discharge Current Mobility Status;Current ADL Status;Cognition;Decreased safety awareness;Decreased caregiver support Barrier Comments fall risk Plan Plan Plan of care initiated;If this is the last note, consider this the discharge summary Recommendation/Plan OT Recommendation Jail Facility Patient at high risk for Falls;Readmission;Injury due to balance deficits;Injury due to reduced functional status;Injury due to decreased ability to care for self;Injury due to impaired cognition Recommend SNF due to Risk of injury at home;Unable to safely care for self in the home;Skilled therapy needed for patient to return to prior level of independence;Skilled therapy needed to address functional deficits;Skilled therapy needed to address care for self in the home OT Frequency during current admission 2-3x/wk Treatment/Interventions during current admission ADL/IADL retraining;Balance Training;Bed mobility;Endurance training;Functional activity;Functional mobility training;Functional transfer training;Therapeutic activity;Therapeutic exercise;Transfer training;Strengthening Progress during current admission Progressing toward goals OT - Next Appointment 08/01/24 Time Calculation Start Time 1025 Stop Time 1036 Time Calculation (min) 11 min Multi-Disciplinary Problems (from Occupational Therapy) Active Problems Problem: Dressings Lower Extremities Start Date: 07/24/24 Goal Start Date Expected End Date End Date STG - Patient to complete lower body dressing 07/24/24 07/31/24 -- Goal Details: With Mod I Problem: Grooming Start Date: 07/24/24 Goal Start Date Expected End Date End Date STG - Patient will complete grooming 07/24/24 07/31/24 -- Goal Details: Standing at sink with Mod I Problem: Toileting Start Date: 07/24/24 Goal Start Date Expected End Date End Date STG - Patient will complete toileting tasks with 07/24/24 07/31/24 -- Goal Details: Mod I at toilet in bathroom Problem: Transfers Start Date: 07/24/24 Goal Start Date Expected End Date End Date STG - Patient will perform toilet transfer 07/24/24 07/31/24 -- Goal Details: To toilet in bathroom with Mod I Problem: OT Misc Start Date: 07/24/24 Goal Start Date Expected End Date End Date OT LTG - Misc 1 07/24/24 08/07/24 -- Goal Details: Patient will perform ADL tasks with modified independence * Calderon Harmon MD - 07/30/2024 8:20 AM CDT Medicine Daily Progress Note Patient: Lei Rodriguez : 1960 (63 y.o.) Date of Admission: 07/07/2024 Date of Service: 07/30/24 SUBJECTIVE Interval Events: - NAEON, AFVSS, net +160 ml - PE: no changes - BMP, CBC stable, BG 273 but has refused insulin - No acute concerns this AM. Tolerating PO and no reports of chest pain. Discussed plan with sisters on Facetime this AM with attending. Plan for Today: - Will discuss with initial ID team tomorrow regarding efficacy of long acting dalbavancin vs scheduled IV ancef given persistent vegetation (1.2x0.9 initial vs 1.0x1.1 cm on 10/18) - Per discussion with EP, not a candidate for transvenous ICD replacement while TV vegetation persists. Will need a repeat GT in 4 weeks to reassess - Ongoing discussions regarding EP management in interim period. Currently on continuous telemetry in hospital causing significant patient distress. Potential alternatives include sICD (though not optimal given patient body habitus) vs life vest (complicated by patient cognitive impairment and potential poor cooperativity) OBJECTIVE Vitals Most Recent: Vitals: 07/29/24 2351 BP: 92/57 Pulse: 78 Resp: 18 Temp: 36.3 ??C (97.3 ??F) SpO2: 95% 24 Hour Min/Max: Temp Min: 36.3 ??C (97.3 ??F) Max: 36.3 ??C (97.3 ??F) Pulse Min: 78 Max: 95 BP Min: 92/57 Max: 128/71 Resp Min: 18 Max: 20 SpO2 Min: 95 % Max: 98 % Intake/Output Intake/Output Summary (Last 24 hours) at 07/30/2024 0820 Last data filed at 07/30/2024 0045 Gross per 24 hour Intake 160 ml Output 0 ml Net 160 ml Current Medications Scheduled Meds: Scheduled Medications Medication Dose Route Frequency acetaminophen (TYLENOL) tablet 1,000 mg 1,000 mg oral Q8H apixaban (ELIQUIS) tablet 5 mg 5 mg oral Q12H GALINA cefadroxil (DURICEF) 500 mg capsule 1,000 mg 1,000 mg oral BID escitalopram (LEXAPRO) tablet 10 mg 10 mg oral Daily furosemide (LASIX) tablet 40 mg 40 mg oral Daily insulin glargine (LANTUS, SEMGLEE) 100 unit/mL injection 26 Units 26 Units subcutaneous QAM insulin lispro (HumaLOG, ADMELOG) 100 unit/mL injection 0-10 Units 0-10 Units subcutaneous TID withmeals insulin lispro (HumaLOG, ADMELOG) 100 unit/mL injection 0-5 Units 0-5 Units subcutaneous Nightly insulin lispro (HumaLOG, ADMELOG) 100 unit/mL injection 11 Units 11 Units subcutaneous TID with meals levothyroxine (SYNTHROID) tablet 75 mcg 75 mcg oral Daily - 0600 lidocaine (ASPERCREME) 4 % patch 1 patch 1 patch transdermal Q24H magnesium oxide (MAG-OX) tablet 800 mg 800 mg oral Daily metoprolol XL (TOPROL-XL) extended release tablet 100 mg 100 mg oral Daily mirabegron ER (MYRBETRIQ) extended release tablet 25 mg 25 mg oral Daily nortriptyline (PAMELOR) capsule 10 mg 10 mg oral Nightly pantoprazole DR (PROTONIX) extended release tablet 20 mg 20 mg oral Daily polyethylene glycol (MIRALAX) packet 17 g 17 g oral BID sacubitriL-valsartan (ENTRESTO) 24-26 mg tablet 1 tablet 1 tablet oral BID senna-docusate (PERICOLACE) 8.6-50 mg per tablet 1 tablet 1 tablet oral BID sodium chloride 0.9% flush 0.5-20 mL 0.5-20 mL intra-catheter Q8H GALINA sodium chloride 0.9% flush 0.5-20 mL 0.5-20 mL intra-catheter Q8H GALINA sodium chloride 0.9% flush 5-10 mL 5-10 mL intra-catheter Q12H GALINA spironolactone (ALDACTONE) split tablet 12.5 mg 12.5 mg oral Daily Continuous Meds: Current Facility-Administered Medications Medication Dose Route Frequency Last Admin PRN Meds: PRN Medications Medication Dose Route Frequency Last Admin calcium carbonate (TUMS) chewable tablet 500 mg 200 mg of elemental calcium oral TID PRN 500 mg at 07/29/24 1301 Carrier Fluids for Secondary Infusion - 0.9% Sodium Chloride 30 mL intravenous PRN Carrier Fluids for Secondary Infusion - 0.9% Sodium Chloride 30 mL intravenous PRN 30 mL at 07/25/24 1621 cyclobenzaprine (FLEXERIL) tablet 5 mg 5 mg oral TID PRN 5 mg at 07/23/24 1133 dextrose gel in packet 15 g 15 g oral Q15 Min PRN Or dextrose (D10W) 10% bolus 250 mL 250 mL intravenous Q15 Min PRN glucagon injection 1 mg 1 mg intramuscular Q30 Min PRN 1 mg at 07/21/24 1420 lidocaine (LMX) 4 % cream 1 Application 1 Application topical QID PRN ondansetron ODT (ZOFRAN-ODT) disintegrating tablet 4 mg 4 mg oral Q6H PRN Or ondansetron (ZOFRAN) injection 4 mg 4 mg intravenous Q6H PRN 4 mg at 10/16/24 2133 polyethylene glycol (MIRALAX) packet 17 g 17 g oral Daily PRN 17 g at 07/21/24 142 ramelteon (ROZEREM) tablet 8 mg 8 mg oral Nightly PRN 8 mg at 07/29/242133 sodium chloride 0.9% flush 0.5-20 mL 0.5-20 mL intra-catheter PRN sodium chloride 0.9% flush 0.5-20 mL 0.5-20 mL intra-catheter PRN sodium chloride 0.9% flush 5-20 mL 5-20 mL intra-catheter PRN Physical Exam Physical Exam: Gen: No apparent distress. Resting comfortably. Cooperative. HEENT: No conjunctival pallor or injection, no icterus. No nasal discharge. Moist mucus membranes. Cardiac: Irregularly irregular rate and rhythm, normal S1/S2. No murmurs appreciated Pulm: Clear to auscultation bilaterally without crackles, wheezes, rhonchi Abdomen: Soft. No tenderness or distension. Extremity: Warm. No edema. No clubbing or cyanosis. Neuro: Alert and orientedx3. No focal deficits. Voiced understanding on reason for being in hospital, benefits from simple explanations Skin: No lesions, erythema, or skin changes. Psych: Mood appropriate. Limited insight this AM Laboratory Results Recent Results (from the past 24 hour(s)) POCT glucose Collection Time: 07/29/24 8:37 AM Result Value Ref Range Glucose, POC 280 (H) 70 - 199 mg/dL Glucose comment 1 Glu2: BROWN/ Notified POCT glucose Collection Time: 07/29/24 11:30 AM Result Value Ref Range Glucose, POC 268 (H) 70 - 199 mg/dL Glucose comment 1 Glu2: RN/ Notified POCT glucose Collection Time: 07/29/24 5:11 PM Result Value Ref Range Glucose, POC 153 70 - 199 mg/dL POCT glucose Collection Time: 07/29/24 9:30 PM Result Value Ref Range Glucose, POC 262 (H) 70 - 199 mg/dL CBC without differential Collection Time: 07/29/24 10:10 PM Result Value Ref Range WBC 6.3 3.8 - 9.9 K/cumm Hgb 12.4 11.9 - 15.5 g/dL Hct 36.6 35.6 - 45.5 % Plt 301 150 - 400 K/cumm MPV 9.5 9.1 - 12.3 fL RBC 3.78 (L) 3.90 - 5.20 M/cumm MCV 96.8 (H) 81.3 - 96.4 fL MCH 32.8 27.1 - 33.3 pg MCHC 33.9 32.3 - 35.7 g/dL RDW CV 13.1 11.1 - 14.9 % RDW SD 46.3 35.7 - 48.1 fL NRBC abs 0.00 0.00 - 0.01 K/cumm Comprehensive metabolic panel Collection Time: 07/29/24 10:10 PM Result Value Ref Range Sodium 137 135 - 145 mmol/L Potassium, pl 4.5 3.3 - 4.9 mmol/L Chloride 100 97 - 110 mmol/L CO2 27 22 - 32 mmol/L Anion gap 10 2 - 15 mmol/L BUN 19 6 - 25 mg/dL Creatinine 1.01 0.60 - 1.10 mg/dL Glucose 273 (H) 70 - 199 mg/dL Calcium 9.4 8.5 - 10.3 mg/dL Bilirubin, total 0.2 0.1 - 1.2 mg/dL Protein, pl 7.5 6.5 - 8.5 g/dL Albumin 3.8 3.5 - 5.0 g/dL Alk phos 157 (H) 40 - 130 Units/L ALT 7 7 - 45 Units/L AST 25 10 - 45 Units/L Magnesium Collection Time: 07/29/24 10:10 PM Result Value Ref Range Magnesium 1.8 1.4 - 2.5 mg/dL eGFR Collection Time: 07/29/24 10:10 PM Result Value Ref Range eGFR 63 >=60 mL/min/1.73 m2 Imaging Results Transesophageal Echo (GT) W Doppler/CF Patient name: Lei Rodriguez Date of test: 07/27/2024 Date of : 1960 (F) Hospital #: 0 Location: [facility] Cardiac Diagnostic Lab Interpreted by: Hernan Phelps MD Statistics Teacher: Russel Workman MD RN: Reason for Test: [...] 2=Hypo 3=Akinetic 4=Dyskin. 5=Aneurysm 0=Not visualized) Short [place]kar[place]-Gastric:=2 S=2 I=2 P=2 L=2 A=2 Long [place]-Gastric:BP=2 BA=2 MP=2 MA=2 AP=2 AA=2 Chamber Dimensions: RA: mildly increased LA: markedly increased RV: mildly dilated LV: moderately dilated LV function: Severe global left ventricular dysfunction. RV function: see Summary Pericardium: No pericardial effusion seen Diastolic function: not assessed Atrial Septum: Normal Wall Thickness: RV: Normal LV: Normal Sedation/Tolerance: Sedation: GT performed with intravenous conscious sedation. Meds Admin: [...] seen, Mild-moderate MR, severe TV regurgitation, Mild LA. GT Summary Russel Workman performed the GT probe placement with Hernan Phelps MD present. [...] 07/27/2024 - 16:25:20 by Hernan Phelps MD Abrasive Sawyer: Russel Workman By signing this report, the attending arboreal scientist certifies that he or she has personally supervised and interpreted the echocardiogram and has reviewed and or edited and agrees with the written comments contained within the report. ASSESSMENT & PLAN Lei Rodriguez is a 63 y.o. female with a PMHx significant for MSSA bacteremia (05/2024), A-fib,HFrEF (EF 30%), T2DM, GERD, Intellectual disability, OAB, JOSE, and hypothyroidism who presented to OSH 06/28 for back pain. Found to have + blood cx for staph aureus and CT c/f OM, transferred to [facility] for further evaluation/treatment. 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 Repeat GT 07/27 demonstrated persistent vegetation, with ongoing discussions regarding optimal approach to antibiotics and secondary VT/VF prevention. #MSSA TV Endocarditis, recurrent, secondary to infected ICD lead #History of Vfib/VT Recent admit 05/2024 for MSSA bacteremia. Per outside hospital, TTE and GT at the time without vegetations on valves/ICD. S/p 4 weeks of IV Ancef ending 06/21. Review of ID notes from OSH show blood cultures remained clear on 06/13. 07/01 blood cx were drawn x2, 10/11 then second set 11/11 MSSA. Vanc + Ancef started, Vanc d/c 07/03. 07/02, 07/07 cx NGTD. Recurrence due to lack of source control on ICD. Patient found to have had shocks 06/10/24 for ventricular arrhythmia, not pacer dependent. S/p explant on 07/13/24 with path confirming MSSA on ICD lead. Also found to have TV endocarditis with vegetation visualized on GT 07/10, 07/13, persistent on 07/27 (1.2 x 0.9 cm 07/13 vs 1.0 x 1.1 cm on 07/27). Patient found to have retained wire in PA, representing persistent potential source and precluding any future MRI per discussion with radiology. Underwent PET 07/23/24 to rule out osteo of spine. Will need lifetime antibiotic suppression. Per multidisciplinary discussion with CTS, valvular prior to ICD explant, not a candidate for angiovac or TV surgery given clearing BCx, moderate vegetation size, without significant valve dysfunction, and sisters strongly against open heart surgery (see CTS brief note 07/11/24). Also not a candidate for removal of retained wire, extremely high risk per CTS/Vascular. Current Plan: - Antibiotics: - For treatment of infective endocarditis, s/p Ancef q8h 07/13-. Following discussion with ID on 07/25, started patient on Dalbavancin 07/25, planned for repeat 08/01 to provide 6 weeks MSSA IE coverage - For lifetime suppression given retained wire, cefadroxil 1 mg PO BID started 07/25 - VF/VT secondary prevention: - Continuous telemetry - transvenous ICD cannot be replaced until TV vegetation clears. Plan for repeat GT in 4 weeks (08/24) to reassess - Ongoing discussions with EP regarding alternatives in interim (inpatient telemetry vs life vest vs sICD) #Hx of intellectual disability/developmental delay #Agitation #Concern for suicidality Sister Dilia currently takes care of patient, other sister Peg assists. Both discuss pt medical decisions together. Patient is not consentable - As in interval history 07/18, patient expressed sentiments of preferring to over remaining in hospital. Per assessment by primary team, not felt to be actively suicidal at this time, deferred sitter - Psychiatry consulted, appreciate further recommendations. Haldol 2 mg PRN for agitation, avoid further benzos due to concern of delirium #HFrEF - compensated EF of 30% on 05/2024 echocardiogram, mild-mod MR, RVSP 42 mild-mod TR. HFrEF dates back to at [id number], etiology not established. S/p CTA coronary 07/16 without CAD, sarcoid PET 07/23/24 without inflammation. - Daily furosemide 40 (home med) - On admission, GDMT Entresto 24-26 BID (did not increase further, felt limited by BPs) and metoprolol (increased during admission for rate control, see below) - Initiated spironolactone 12.5 mg, not on Farxiga due to recurrent UTI #Persistent atrial fibrillation #MAULIK Thrombus In AFib throughout admission. Previously on Tikosyn, however, taken off of Tikosyn after admission for MSSA, and was continued on Xarelto for AC and Coreg for rate control. GT in May 2024 performed to eval for endocarditis showed LA thrombus while on Xarelto. At OSH just prior to this admission, patient had RVR and received dual tim blockade with dilt and metoprolol, stopped dilt 2/2 reduced EF and continued on metoprolol. - Metoprolol succinate increased to 75 after symptomatic RVR on 07/18, increase to 100 07/27 due to rates 130s and transient into 150s - anticoagulation: heparin gtt -> Eliquis 07/14 #T2DM Home regimen: glargine 18u; Lispro 10 TID + SSI. A1c here 7.7 on 07/07/24. - Currently on Lantus 26 and mealtime 9 TID + HDSSI given hyperglycemia - Has been poorly controlled during admission due to inconsistency in diet and willingness to receive insulin. Episode of hypoglycemia 07/21 after patient received insulin then refused to eat any food, other times eating but refuses insulin - POC glucose TIDAC #Anemia: Hgb 10.8 on arrival. Bl: 11-12. MCV elevated. B12 > 1000 at OSH, Folate wnl. CTM #Recurrent UTI #OAB Per family, has been treated multiple times recently for UTIs. Her symptoms are not urinary in nature, her symptoms typically are becoming delirious and belligerent. UA at outside hospital with 0-5 WBC, 3+ nitrate. Cx was performed which showed >100,000 colonies E coli and per documentation completed course of ceftriaxone for UTI. - Given ongoing concerns with family surrounding possible UTI, repeated UA 07/19 negative - Home Vibegron 75 --> change to Mirabegron for formulary #MARK, resolved: Cr elevated to 1.66 in PM 07/18 labs, FeUrea prerenal, suspected in setting of transient hypotension during RVR on 07/18. Resolved without treatment. #Hypothyroidism: Synthroid 75mcg, TSH 2.8 #Depression: Continue Lexapro 10, nortriptyline 10. Moved nortriptyline to PM dosing per psychiatryrecommendations #GERD: Pantoprazole 20 #Constipation: Senna-Docusate BID #JOSE: Patient reportedly intermittently compliant at home on CPAP. Patient declined daily, dc'ed after 2 weeks of daily refusal Dispo Planning: - Need to determine best Abx regimen (extended dosing with dalbavancin vs scheduled Ancef) - will either need second dose dalbavancin 08/01 vs Vale if IV Ancef at home Code Status: Full Code Disposition: pending Best contact: Primary Emergency Contact: Dilia Moise Diet: Adult Diet Restricted; 2 GM Sodium; Consistent Carbohydrate; Send on Disposables VTE Prophylaxis: Eliquis PT: PT Recommendation/Plan: Jail Facility OT:OT Recommendation: Jail Facility Calderon Harmon MD PGY-1 Internal Medicine Cosigned by Suman Chávez MD at 07/30/2024 2:47 PM CDT Associated attestation - Suman Chávez MD - 07/30/2024 2:47 PM CDT Attending Documentation I have seen and examined the patient on 07/30/24. 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 Patient remains clinically stable. Plan as per ID and EP consult. Supplementary Attestation Today, I am treating the patient for endocarditis of ICD and tricuspid valve which is in moderate exacerbation, progression, or experiencing treatment side effects as evidenced by clinical and imaging, as described in the note. Suman Chávez MD 07/30/2024 2:44 PM * Valentina Brown MD - 07/29/2024 9:47 AM CDT Medicine Daily Progress Note Patient: Lei Rodriguez : 1960 (63 y.o.) Date of Admission: 07/07/2024 Date of Service: 07/29/24 SUBJECTIVE Interval Events: - No acute events overnight - Patient upset about labs, may have refused medications (spat out pills, unclear which) - Rate controlled on telemetry, VSS, labs stable - Complained of mild epigastric abdominal pain today. Had a BM today. will offer Tums Plan for Today: - Will discuss with initial ID team tomorrow regarding efficacy of long acting dalbavancin vs scheduled IV ancef given persistent vegetation (1.2x0.9 initial vs 1.0x1.1 cm on 07/27) - Per discussion with EP, not a candidate for transvenous ICD replacement while TV vegetation persists. Will need a repeat GT in 4 weeks to reassess - Ongoing discussions regarding EP management in interim period. Currently on continuous telemetry in hospital causing significant patient distress. Potential alternatives include sICD (though not optimal given patient body habitus) vs life vest (complicated by patient cognitive impairment and potential poor cooperativity) OBJECTIVE Vitals Most Recent: Vitals: 07/29/24 0905 BP: 123/52 Pulse: 95 Resp: 18 Temp: SpO2: 95% 24 Hour Min/Max: Temp Min: 36.5 ??C (97.7 ??F) Max: 36.6 ??C (97.9 ??F) Pulse Min: 83 Max: 99 BP Min: 100/79 Max: 140/80 Resp Min: 18 Max: 18 SpO2 Min: 95 % Max: 98 % Intake/Output Intake/Output Summary (Last 24 hours) at 07/29/2024 0947 Last data filed at 07/28/2024 1245 Gross per 24 hour Intake 240 ml Output 0 ml Net 240 ml Current Medications Scheduled Meds: Scheduled Medications Medication Dose Route Frequency acetaminophen (TYLENOL) tablet 1,000 mg 1,000 mg oral Q8H apixaban (ELIQUIS) tablet 5 mg 5 mg oral Q12H GALINA cefadroxil (DURICEF) 500 mg capsule 1,000 mg 1,000 mg oral BID escitalopram (LEXAPRO) tablet 10 mg 10 mg oral Daily furosemide (LASIX) tablet 40 mg 40 mg oral Daily insulin glargine (LANTUS, SEMGLEE) 100 unit/mL injection 26 Units 26 Units subcutaneous QAM insulin lispro (HumaLOG, ADMELOG) 100 unit/mL injection 0-10 Units 0-10 Units subcutaneous TID withmeals insulin lispro (HumaLOG, ADMELOG) 100 unit/mL injection 0-5 Units 0-5 Units subcutaneous Nightly insulin lispro (HumaLOG, ADMELOG) 100 unit/mL injection 11 Units 11 Units subcutaneous TID with meals levothyroxine (SYNTHROID) tablet 75 mcg 75 mcg oral Daily - 0600 lidocaine (ASPERCREME) 4 % patch 1 patch 1 patch transdermal Q24H magnesium oxide (MAG-OX) tablet 800 mg 800 mg oral Daily magnesium sulfate 2 g/50 mL in water (premix) 2 g 2 g intravenous Once metoprolol XL (TOPROL-XL) extended release tablet 100 mg 100 mg oral Daily mirabegron ER (MYRBETRIQ) extended release tablet 25 mg 25 mg oral Daily nortriptyline (PAMELOR) capsule 10 mg 10 mg oral Nightly pantoprazole DR (PROTONIX) extended release tablet 20 mg 20 mg oral Daily polyethylene glycol (MIRALAX) packet 17 g 17 g oral BID sacubitriL-valsartan (ENTRESTO) 24-26 mg tablet 1 tablet 1 tablet oral BID senna-docusate (PERICOLACE) 8.6-50 mg per tablet 1 tablet 1 tablet oral BID sodium chloride 0.9% flush 0.5-20 mL 0.5-20 mL intra-catheter Q8H GALINA sodium chloride 0.9% flush 0.5-20 mL 0.5-20 mL intra-catheter Q8H GALINA sodium chloride 0.9% flush 5-10 mL 5-10 mL intra-catheter Q12H GALINA spironolactone (ALDACTONE) split tablet 12.5 mg 12.5 mg oral Daily Continuous Meds: Current Facility-Administered Medications Medication Dose Route Frequency Last Admin PRN Meds: PRN Medications Medication Dose Route Frequency Last Admin Carrier Fluids for Secondary Infusion - 0.9% Sodium Chloride 30 mL intravenous PRN Carrier Fluids for Secondary Infusion - 0.9% Sodium Chloride 30 mL intravenous PRN 30 mL at 07/25/24 1621 cyclobenzaprine (FLEXERIL) tablet 5 mg 5 mg oral TID PRN 5 mg at 07/23/24 1133 dextrose gel in packet 15 g 15 g oral Q15 Min PRN Or dextrose (D10W) 10% bolus 250 mL 250 mL intravenous Q15 Min PRN glucagon injection 1 mg 1 mg intramuscular Q30 Min PRN 1 mg at 07/21/24 1420 lidocaine (LMX) 4 % cream 1 Application 1 Application topical QID PRN ondansetron ODT (ZOFRAN-ODT) disintegrating tablet 4 mg 4 mg oral Q6H PRN Or ondansetron (ZOFRAN) injection 4 mg 4 mg intravenous Q6H PRN 4 mg at 07/25/24 2133 polyethylene glycol (MIRALAX) packet 17 g 17 g oral Daily PRN 17 g at 07/21/24 1422 ramelteon (ROZEREM) tablet 8 mg 8 mg oral Nightly PRN 8 mg at 07/25/242005 sodium chloride 0.9% flush 0.5-20 mL 0.5-20 mL intra-catheter PRN sodium chloride 0.9% flush 0.5-20 mL 0.5-20 mL intra-catheter PRN sodium chloride 0.9% flush 5-20 mL 5-20 mL intra-catheter PRN Physical Exam Physical Exam: Gen: No apparent distress. Resting comfortably. Cooperative. HEENT: No conjunctival pallor or injection, no icterus. No nasal discharge. Moist mucus membranes. Cardiac: Irregularly irregular rate and rhythm, normal S1/S2. No murmurs appreciated Pulm: Clear to auscultation bilaterally without crackles, wheezes, rhonchi Abdomen: Soft. No tenderness or distension. Extremity: Warm. No edema. No clubbing or cyanosis. Neuro: Alert and orientedx3. No focal deficits. Voiced understanding on reason for being in hospital, benefits from simple explanations Skin: No lesions, erythema, or skin changes. Psych: Mood appropriate. Limited insight this AM Laboratory Results Recent Results (from the past 24 hour(s)) POCT glucose Collection Time: 07/28/24 12:20 PM Result Value Ref Range Glucose, POC 193 70 - 199 mg/dL POCT glucose Collection Time: 07/28/24 6:00 PM Result Value Ref Range Glucose, POC 236 (H) 70 - 199 mg/dL POCT glucose Collection Time: 07/28/24 9:05 PM Result Value Ref Range Glucose, POC 304 (H) 70 - 199 mg/dL CBC without differential Collection Time: 07/29/24 3:02 AM Result Value Ref Range WBC 7.0 3.8 - 9.9 K/cumm Hgb 11.5 (L) 11.9 - 15.5 g/dL Hct 35.6 35.6 - 45.5 % Plt 282 150 - 400 K/cumm MPV 9.6 9.1 - 12.3 fL RBC 3.63 (L) 3.90 - 5.20 M/cumm MCV 98.1 (H) 81.3 - 96.4 fL MCH 31.7 27.1 - 33.3 pg MCHC 32.3 32.3 - 35.7 g/dL RDW CV 13.0 11.1 - 14.9 % RDW SD 46.3 35.7 - 48.1 fL NRBC abs 0.00 0.00 - 0.01 K/cumm Comprehensive metabolic panel Collection Time: 07/29/24 3:02 AM Result Value Ref Range Sodium 136 135 - 145 mmol/L Potassium, pl 4.4 3.3 - 4.9 mmol/L Chloride 99 97 - 110 mmol/L CO2 27 22 - 32 mmol/L Anion gap 10 2 - 15 mmol/L BUN 26 (H) 6 - 25 mg/dL Creatinine 0.80 0.60 - 1.10 mg/dL Glucose 254 (H) 70 - 199 mg/dL Calcium 9.7 8.5 - 10.3 mg/dL Bilirubin, total 0.2 0.1 - 1.2 mg/dL Protein, pl 7.1 6.5 - 8.5 g/dL Albumin 3.3 (L) 3.5 - 5.0 g/dL Alk phos 161 (H) 40 - 130 Units/L ALT 11 7 - 45 Units/L AST 24 10 - 45 Units/L Magnesium Collection Time: 07/29/24 3:02 AM Result Value Ref Range Magnesium 1.8 1.4 - 2.5 mg/dL eGFR Collection Time: 07/29/24 3:02 AM Result Value Ref Range eGFR 83 >=60 mL/min/1.73 m2 POCT glucose Collection Time: 07/29/24 3:08 AM Result Value Ref Range Glucose, POC 285 (H) 70 - 199 mg/dL POCT glucose Collection Time: 07/29/24 8:37 AM Result Value Ref Range Glucose, POC 280 (H) 70 - 199 mg/dL Glucose comment 1 Glu2: RN/ Notified Imaging Results Transesophageal Echo (GT) W Doppler/CF Patient name: Lei Rodriguez Date of test: 07/27/2024 Date of : 1960 (F) Hospital #: 0 Location: [facility] Cardiac Diagnostic Lab Interpreted by: Hernan Phelps MD Statistics Teacher: Russel Workman MD RN: Reason for Test: [...] 2=Hypo 3=Akinetic 4=Dyskin. 5=Aneurysm 0=Not visualized) Short [place]kar[place]-Gastric:=2 S=2 I=2 P=2 L=2 A=2 Long [place]-Gastric:BP=2 BA=2 MP=2 MA=2 AP=2 AA=2 Chamber Dimensions: RA: mildly increased LA: markedly increased RV: mildly dilated LV: moderately dilated LV function: Severe global left ventricular dysfunction. RV function: see Summary Pericardium: No pericardial effusion seen Diastolic function: not assessed Atrial Septum: Normal Wall Thickness: RV: Normal LV: Normal Sedation/Tolerance: Sedation: GT performed with intravenous conscious sedation. Meds Admin: [...] seen, Mild-moderate MR, severe TV regurgitation, Mild LA. GT Summary Russel Workman performed the GT probe placement with Hernan Phelps MD present. [...] 07/27/2024 - 16:25:20 by Hernan Phelps MD Abrasive Sawyer: Russel Workman By signing this report, the attending arboreal scientist certifies that he or she has personally supervised and interpreted the echocardiogram and has reviewed and or edited and agrees with the written comments contained within the report. ASSESSMENT & PLAN Lei Rodriguez is a 63 y.o. female with a PMHx significant for MSSA bacteremia (05/2024), A-fib,HFrEF (EF 30%), T2DM, GERD, Intellectual disability, OAB, JOSE, and hypothyroidism who presented to OSH 06/28 for back pain. Found to have + blood cx for staph aureus and CT c/f OM, transferred to [facility] for further evaluation/treatment. 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 Repeat GT 07/27 demonstrated persistent vegetation, with ongoing discussions regarding optimal approach to antibiotics and secondary VT/VF prevention. #MSSA TV Endocarditis, recurrent, secondary to infected ICD lead #History of Vfib/VT Recent admit 05/2024 for MSSA bacteremia. Per outside hospital, TTE and GT at the time without vegetations on valves/ICD. S/p 4 weeks of IV Ancef ending 06/21. Review of ID notes from OSH show blood cultures remained clear on 06/13. 07/01 blood cx were drawn x2, 10/11 then second set 11/11 MSSA. Vanc + Ancef started, Vanc d/c 07/03. 07/02, 07/07 cx NGTD. Recurrence due to lack of source control on ICD. Patient found to have had shocks 06/10/24 for ventricular arrhythmia, not pacer dependent. S/p explant on 07/13/24 [address] path confirming MSSA on ICD lead. Also found to have TV endocarditis with vegetationvisualized on GT 07/10, 07/13, persistent on 07/27 (1.2 x 0.9 cm 07/13 vs 1.0 x 1.1 cm on 07/27). Patient found to have retained wire in PA, representing persistent potential source and precluding any future MRI per discussion with radiology. Underwent PET 07/23/24 to rule out osteo of spine. Will need lifetime antibiotic suppression. Per multidisciplinary discussion with CTS, valvular prior to ICD explant, not a candidate for angiovac or TV surgery given clearing BCx, moderate vegetation size, without significant valve dysfunction, and sisters strongly against open heart surgery (see CTS brief note 07/11/24). Also not a candidate for removal of retained wire, extremely high risk per CTS/Vascular. Current Plan: - Antibiotics: - For treatment of infective endocarditis, s/p Ancef q8h 07/13-. Following discussion with ID on 07/25, started patient on Dalbavancin 07/25, planned for repeat 08/01 to provide 6 weeks MSSA IE coverage - For lifetime suppression given retained wire, cefadroxil 1 mg PO BID started 07/25 - VF/VT secondary prevention: - Continuous telemetry - transvenous ICD cannot be replaced until TV vegetation clears. Plan for repeat GT in 4 weeks (08/24) to reassess - Ongoing discussions with EP regarding alternatives in interim (inpatient telemetry vs life vest vs sICD) #Hx of intellectual disability/developmental delay #Agitation #Concern for suicidality Sister Dilia currently takes care of patient, other sister Peg assists. Both discuss pt medical decisions together. Patient is not consentable - As in interval history 07/18, patient expressed sentiments of preferring to over remaining in hospital. Per assessment by primary team, not felt to be actively suicidal at this time, deferred sitter - Psychiatry consulted, appreciate further recommendations. Haldol 2 mg PRN for agitation, avoid further benzos due to concern of delirium #HFrEF - compensated EF of 30% on 05/2024 echocardiogram, mild-mod MR, RVSP 42 mild-mod TR. HFrEF dates back to at [id number], etiology not established. S/p CTA coronary 07/16 without CAD, sarcoid PET 07/23/24 without inflammation. - Daily furosemide 40 (home med) - On admission, GDMT Entresto 24-26 BID (did not increase further, felt limited by BPs) and metoprolol (increased during admission for rate control, see below) - Initiated spironolactone 12.5 mg, not on Farxiga due to recurrent UTI #Persistent atrial fibrillation #MAULIK Thrombus In AFib throughout admission. Previously on Tikosyn, however, taken off of Tikosyn after admission for MSSA, and was continued on Xarelto for AC and Coreg for rate control. GT in May 2024 performed to eval for endocarditis showed LA thrombus while on Xarelto. At OSH just prior to this admission, patient had RVR and received dual tim blockade with dilt and metoprolol, stopped dilt 2/2 reduced EF and continued on metoprolol. - Metoprolol succinate increased to 75 after symptomatic RVR on 07/18, increase to 100 07/27 due to rates 130s and transient into 150s - anticoagulation: heparin gtt -> Eliquis 07/14 #T2DM Home regimen: glargine 18u; Lispro 10 TID + SSI. A1c here 7.7 on 07/07/24. - Currently on Lantus 26 and mealtime 9 TID + HDSSI given hyperglycemia - Has been poorly controlled during admission due to inconsistency in diet and willingness to receive insulin. Episode of hypoglycemia 07/21 after patient received insulin then refused to eat any food, other times eating but refuses insulin - POC glucose TIDAC #Anemia: Hgb 10.8 on arrival. Bl: 11-12. MCV elevated. B12 > 1000 at OSH, Folate wnl. CTM #Recurrent UTI #OAB Per family, has been treated multiple times recently for UTIs. Her symptoms are not urinary in nature, her symptoms typically are becoming delirious and belligerent. UA at outside hospital with 0-5 WBC, 3+ nitrate. Cx was performed which showed >100,000 colonies E coli and per documentation completed course of ceftriaxone for UTI. - Given ongoing concerns with family surrounding possible UTI, repeated UA 07/19 negative - Home Vibegron 75 --> change to Mirabegron for formulary #MARK, resolved: Cr elevated to 1.66 in PM 07/18 labs, FeUrea prerenal, suspected in setting of transient hypotension during RVR on 07/18. Resolved without treatment. #Hypothyroidism: Synthroid 75mcg, TSH 2.8 #Depression: Continue Lexapro 10, nortriptyline 10. Moved nortriptyline to PM dosing per psychiatryrecommendations #GERD: Pantoprazole 20 #Constipation: Senna-Docusate BID #JOSE: Patient reportedly intermittently compliant at home on CPAP. Patient declined daily, dc'ed after 2 weeks of daily refusal Dispo Planning: - Need to determine best Abx regimen (extended dosing with dalbavancin vs scheduled Ancef) - will either need second dose dalbavancin 08/01 vs Vale if IV Ancef at home Code Status: Full Code Disposition: pending Best contact: Primary Emergency Contact: Dilia Moise Diet: Adult Diet Restricted; 2 GM Sodium; Consistent Carbohydrate; Send on Disposables VTE Prophylaxis: Eliquis PT: PT Recommendation/Plan: Jail Facility OT:OT Recommendation: Jail Facility Valentina Brown MD PGY-1 Internal Medicine Cosigned by Suman Chávez MD at 07/29/2024 12:44 PM CDT Associated attestation - Suman Chávez MD - 07/29/2024 12:44 PM CDT Attending Documentation I have seen and examined the patient on 07/29/24. I agree with the findings and plan of care as documented in the resident's/fellow's note.Patient with HFrEF and ICED infection and endocarditis of TV, has been started on AB, ID following. Question remains regarding next best action for ICD re-implantation. Supplementary Attestation Today, I am treating the patient for ICED infection s/p extraction, Tricuspid valve endocarditis which is in moderate exacerbation, progression, or experiencing treatment side effects as evidenced byclinical and imaging, as described in the note. Suman Chávez MD 07/29/2024 12:41 PM * Raul Holder MD - 07/28/2024 3:04 PM CDT Medicine Daily Progress Note Patient: Lei Rodriguez : 1960 (63 y.o.) Date of Admission: 07/07/2024 Date of Service: 07/28/24 SUBJECTIVE Interval Events: - Liberalized diet due to patient desire - GT showed 1.0 cm x 1.1 cm vegetation on TV - Vitals stable overnight - Labs stable Plan for Today: - Spoke to ID regarding efficacy of p.o. antibiotics versus IV antibiotics in eliminating tricuspidvalve vegetation. Unclear which regimen is better per weekend team, they encouraged primary to reach out to her initial infectious disease team. - We will need a repeat GT in 4 weeks to reassess vegetation prior to ICD placement. Her home regimen of antibiotics hinges on efficacy of IV versus p.o. in eliminating vegetation. If she can not gohome on IV antibiotics, she may also be considered candidate for long stay at [facility]. - We will discuss with electrophysiology their plans if a vegetation is still persistent in 4 weekson Tuesday (once ID has weighed in on abx plan) OBJECTIVE Vitals Most Recent: Vitals: 07/28/24 0910 BP: 104/53 Pulse: 91 Resp: 18 Temp: 36.7 ??C (98.1 ??F) SpO2: 94% 24 Hour Min/Max: Temp Min: 36.3 ??C (97.3 ??F) Max: 36.7 ??C (98.1 ??F) Pulse Min: 81 Max: 98 BP Min: 102/70 Max: 116/46 Resp Min: 18 Max: 26 SpO2 Min: 94 % Max: 98 % Intake/Output Intake/Output Summary (Last 24 hours) at 07/28/2024 1504 Last data filed at 07/28/2024 1245 Gross per 24 hour Intake 590 ml Output -- Net 590 ml Current Medications Scheduled Meds: Scheduled Medications Medication Dose Route Frequency acetaminophen (TYLENOL) tablet 1,000 mg 1,000 mg oral Q8H apixaban (ELIQUIS) tablet 5 mg 5 mg oral Q12H GALINA cefadroxil (DURICEF) 500 mg capsule 1,000 mg 1,000 mg oral BID escitalopram (LEXAPRO) tablet 10 mg 10 mg oral Daily furosemide (LASIX) tablet 40 mg 40 mg oral Daily insulin glargine (LANTUS, SEMGLEE) 100 unit/mL injection 26 Units 26 Units subcutaneous QAM insulin lispro (HumaLOG, ADMELOG) 100 unit/mL injection 0-10 Units 0-10 Units subcutaneous TID withmeals insulin lispro (HumaLOG, ADMELOG) 100 unit/mL injection 0-5 Units 0-5 Units subcutaneous Nightly insulin lispro (HumaLOG, ADMELOG) 100 unit/mL injection 11 Units 11 Units subcutaneous TID with meals levothyroxine (SYNTHROID) tablet 75 mcg 75 mcg oral Daily - 0600 lidocaine (ASPERCREME) 4 % patch 1 patch 1 patch transdermal Q24H magnesium oxide (MAG-OX) tablet 800 mg 800 mg oral Daily metoprolol XL (TOPROL-XL) extended release tablet 100 mg 100 mg oral Daily mirabegron ER (MYRBETRIQ) extended release tablet 25 mg 25 mg oral Daily nortriptyline (PAMELOR) capsule 10 mg 10 mg oral Nightly pantoprazole DR (PROTONIX) extended release tablet 20 mg 20 mg oral Daily polyethylene glycol (MIRALAX) packet 17 g 17 g oral BID sacubitriL-valsartan (ENTRESTO) 24-26 mg tablet 1 tablet 1 tablet oral BID senna-docusate (PERICOLACE) 8.6-50 mg per tablet 1 tablet 1 tablet oral BID sodium chloride 0.9% flush 0.5-20 mL 0.5-20 mL intra-catheter Q8H GALINA sodium chloride 0.9% flush 0.5-20 mL 0.5-20 mL intra-catheter Q8H GALINA sodium chloride 0.9% flush 5-10 mL 5-10 mL intra-catheter Q12H GALINA spironolactone (ALDACTONE) split tablet 12.5 mg 12.5 mg oral Daily Continuous Meds: Current Facility-Administered Medications Medication Dose Route Frequency Last Admin PRN Meds: PRN Medications Medication Dose Route Frequency Last Admin Carrier Fluids for Secondary Infusion - 0.9% Sodium Chloride 30 mL intravenous PRN Carrier Fluids for Secondary Infusion - 0.9% Sodium Chloride 30 mL intravenous PRN 30 mL at 07/25/24 1621 cyclobenzaprine (FLEXERIL) tablet 5 mg 5 mg oral TID PRN 5 mg at 07/23/24 1133 dextrose gel in packet 15 g 15 g oral Q15 Min PRN Or dextrose (D10W) 10% bolus 250 mL 250 mL intravenous Q15 Min PRN glucagon injection 1 mg 1 mg intramuscular Q30 Min PRN 1 mg at 07/21/24 1420 lidocaine (LMX) 4 % cream 1 Application 1 Application topical QID PRN ondansetron ODT (ZOFRAN-ODT) disintegrating tablet 4 mg 4 mg oral Q6H PRN Or ondansetron (ZOFRAN) injection 4 mg 4 mg intravenous Q6H PRN 4 mg at 07/25/24 2133 polyethylene glycol (MIRALAX) packet 17 g 17 g oral Daily PRN 17 g at 07/21/24 1422 ramelteon (ROZEREM) tablet 8 mg 8 mg oral Nightly PRN 8 mg at 07/25/242005 sodium chloride 0.9% flush 0.5-20 mL 0.5-20 mL intra-catheter PRN sodium chloride 0.9% flush 0.5-20 mL 0.5-20 mL intra-catheter PRN sodium chloride 0.9% flush 5-20 mL 5-20 mL intra-catheter PRN Physical Exam Physical Exam: Gen: No apparent distress. Resting comfortably. Cooperative. HEENT: No conjunctival pallor or injection, no icterus. No nasal discharge. Moist mucus membranes. Cardiac: Irregularly irregular rate and rhythm, normal S1/S2. No murmurs appreciated Pulm: Clear to auscultation bilaterally without crackles, wheezes, rhonchi Abdomen: Soft. No tenderness or distension. Extremity: Warm. No edema. No clubbing or cyanosis. Neuro: Alert and orientedx3. No focal deficits. Voiced understanding on reason for being in hospital, benefits from simple explanations Skin: No lesions, erythema, or skin changes. Psych: Mood appropriate. Appropriate insight. Laboratory Results Recent Results (from the past 24 hour(s)) POCT glucose Collection Time: 07/27/24 3:57 PM Result Value Ref Range Glucose, POC 186 70 - 199 mg/dL POCT glucose Collection Time: 07/27/24 5:11 PM Result Value Ref Range Glucose, POC 147 70 - 199 mg/dL POCT glucose Collection Time: 07/27/24 8:55 PM Result Value Ref Range Glucose, POC 139 70 - 199 mg/dL CBC without differential Collection Time: 07/28/24 5:08 AM Result Value Ref Range WBC 6.3 3.8 - 9.9 K/cumm Hgb 11.5 (L) 11.9 - 15.5 g/dL Hct 34.7 (L) 35.6 - 45.5 % Plt 264 150 - 400 K/cumm MPV 9.6 9.1 - 12.3 fL RBC 3.51 (L) 3.90 - 5.20 M/cumm MCV 98.9 (H) 81.3 - 96.4 fL MCH 32.8 27.1 - 33.3 pg MCHC 33.1 32.3 - 35.7 g/dL RDW CV 13.0 11.1 - 14.9 % RDW SD 46.8 35.7 - 48.1 fL NRBC abs 0.00 0.00 - 0.01 K/cumm Comprehensive metabolic panel Collection Time: 07/28/24 5:08 AM Result Value Ref Range Sodium 138 135 - 145 mmol/L Potassium, pl 4.8 3.3 - 4.9 mmol/L Chloride 101 97 - 110 mmol/L CO2 29 22 - 32 mmol/L Anion gap 8 2 - 15 mmol/L BUN 23 6 - 25 mg/dL Creatinine 0.85 0.60 - 1.10 mg/dL Glucose 173 70 - 199 mg/dL Calcium 9.3 8.5 - 10.3 mg/dL Bilirubin, total 0.3 0.1 - 1.2 mg/dL Protein, pl 7.1 6.5 - 8.5 g/dL Albumin 3.2 (L) 3.5 - 5.0 g/dL Alk phos 137 (H) 40 - 130 Units/L ALT 7 7 - 45 Units/L AST 26 10 - 45 Units/L Magnesium Collection Time: 07/28/24 5:08 AM Result Value Ref Range Magnesium 1.9 1.4 - 2.5 mg/dL eGFR Collection Time: 07/28/24 5:08 AM Result Value Ref Range eGFR 77 >=60 mL/min/1.73 m2 POCT glucose Collection Time: 07/28/24 8:30 AM Result Value Ref Range Glucose, POC 197 70 - 199 mg/dL POCT glucose Collection Time: 07/28/24 12:20 PM Result Value Ref Range Glucose, POC 193 70 - 199 mg/dL Imaging Results ASSESSMENT & PLAN Lei Rodriguez is a 63 y.o. female with a PMHx significant for MSSA bacteremia (05/2024), A-fib,HFrEF (EF 30%), T2DM, GERD, Intellectual disability, OAB, JOSE, and hypothyroidism who presented to OSH 06/28 for back pain. Found to have + blood cx for staph aureus and CT c/f OM. Tx to [facility] for further evaluation and treatment. 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 #MSSA TV Endocarditis, recurrent, secondary to infected ICD lead #History of Vfib/VT Recent admit 05/2024 for MSSA bacteremia. Per outside hospital, TTE and GT no vegetations on valvesor on ICD wires. Treated with 4 weeks of IV Ancef ending 06/21. Review of ID notes from OSH show blood cultures remained clear on 06/13. 07/01 blood cx were drawn x2, 1/ then second set /2 MSSA. Vanc+ Ancef started, Vanc d/c 07/03. 07/02 cx NGTD. Concern for lack of source control given recurrence, with potential sources including ICD, heart valves, osteomyelitis of spine given patient's back pain. Ongoing assessment throughout admission. BCx on admission 07/08/24 no growth, HIV NR. PET 07/23/24 no evidence of infection in spine. TTE 07/07/24 demonstrated echodensity on V lead of ICD, GT demonstrating vegetation on TV without vegetation on ICD, as well as thrombus in LA. ICD was interrogated showing shocks on 06/10/24 for ventricular arrhythmia, not pacer dependent. ICD removed 07/13/24.Per multidisciplinary discussion with CTS, valvular, not a candidate for angiovac or TV surgery. Retained wire in PA represents persistent potential source. MRI not safe given retained wire, and wirelikely to be lifetime source for recurrent infection as removal would be extremely high risk per CTS and vascular surgery. Current Plan: - Cardiac surgery, EP, ID consulted, appreciate ongoing recommendations - s/p Dalbavancin 07/25, repeat on 08/01 for 6 weeks MSSA IE coverage. On lifetime cefadroxil 1 mg PO BID suppression - continuous tele 07/27 - GT today to re-evaluate valve and determine plans for ICD #MARK, resolved Cr elevated to 1.66 in PM 07/18 labs. Urine lytes FeUrea consistent with pre- renal, suspect most likely in setting of transient hypotension during RVR 07/18 afternoon. UA not consistent with UTI, Cr improved to baseline since 07/21 #Hx of intellectual disability/developmental delay #Agitation #Concern for suicidality Sister Dilia currently takes care of patient, other sister Peg assists. Both discuss pt medical decisions together. Patient is not consentable - As in interval history 07/18, patient expressed sentiments of preferring to over remaining in hospital. Per assessment by primary team, not felt to be actively suicidal at this time, deferred sitter - Psychiatry consulted, appreciate further recommendations. Haldol 2 mg PRN for agitation, avoid further benzos due to concern of delirium #HFrEF - compensated EF of 30% on 05/2024 echocardiogram, mild-mod MR, RVSP 42 mild-mod TR. On chart review, patient hadHFrEF dating back to at least 2016, though etiology of this not clearly established. Current GDMT includes metoprolol, Entresto 24-26 BID, furosemide 40 daily - Not on Farxiga due to recurrent UTI - Have not increased Entresto further as many BPs in 100s systolic throughout admission - Initiated spironolactone 12.5 mg 07/09 - CTA coronary obtained 07/16 without evidence of CAD (calcium score 0) - Cardiac sarcoid protocol 07/23/24 without active inflammatory process in the myocardium #Persistent atrial fibrillation #MAULIK Thrombus In AFib on admission. Previously on Tikosyn, however, taken off of Tikosyn after admission for MSSA, and was continued on Xarelto for AC and Coreg for rate control in May. GT in May 2024 performed to eval for endocarditis showed LA thrombus; had been on Xarelto at the time per chart review. At OSH just prior to this admission, patient had RVR and received dual tim blockade with dilt and metoprolol, stopped dilt 2/ reduced EF and continued on metoprolol, increased to 75 daily after RVRon 07/18 in setting of acute agitation. Currently rate controlled. - anticoagulation: heparin gtt -> Eliquis 07/14 - metoprolol succinate 75 -> 100 for 07/27 #T2DM Home regimen: glargine 18u; Lispro 10 TID + SSI. A1c here 7.7 on 07/07/24. - Currently on Lantus 26 and mealtime 9 TID + HDSSI given hyperglycemia - poorly controlled 07/21-14 given hypoglycemia on 07/21, poor PO intake in setting of sarcoid dieton 07/22 - POC glucose TIDAC #Anemia: Hgb 10.8 on arrival. Bl: 11-12. MCV elevated. B12 > 1000 at OSH, Folate wnl. CTM #Recurrent UTI #OAB Per family, has been treated multiple times recently for UTIs. Her symptoms are not urinary in nature, her symptoms typically are becoming delirious and belligerent. UA at outside hospital with 0-5 WBC, 3+ nitrate. Cx was performed which showed >100,000 colonies E coli and per documentation completed course of ceftriaxone for UTI. - Given ongoing concerns with family surrounding possible UTI, UA 07/19 negative - Home Vibegron 75 --> change to Mirabegron for formulary #Hypothyroidism: Synthroid 75mcg, TSH 2.8 #Depression: Continue Lexapro 10, nortriptyline 10 #GERD: Pantoprazole 20 #Constipation: Senna-Docusate BID #JOSE: ordered CPAP, pt reportedly intermittently compliant at home Dispo Planning: - Need to determine best Abx regimen (PO vs IV) - If going PO will need second dose dalbavancin - If IV and going home, will need Vale Code Status: Full Code Disposition: pending Best contact: Primary Emergency Contact: MoiseKiloDilia Diet: Adult Diet Restricted; 2 GM Sodium; Consistent Carbohydrate; Send on Disposables VTE Prophylaxis: Eliquis PT: PT Recommendation/Plan: Jail Facility OT:OT Recommendation: Jail Facility [facility] Cosigned by Suman Chávez MD at 07/28/2024 3:47 PM CDT Associated attestation - Suman Chávez MD - 07/28/2024 3:47 PM CDT Attending Documentation I have seen and examined the patient on 07/28/24. I agree with the findings and plan of care as documented in the resident's/fellow's note. Patient received GT which showed presence of vegetation on TV associated with severe TR. Clinically stable. Spoke with her sister on the phone and made her aware. Plan to discuss with EP and ID. Supplementary Attestation Today, I am treating the patient for endocarditis involving the ICD wire and tricuspid valve which is in moderate exacerbation, progression, or experiencing treatment side effects as evidenced by clinical and imaging, as described in the note. Suman Chávez MD 07/28/2024 3:42 PM * Angel Vick - 07/28/2024 1:41 PM CDT Spiritual Care Note [employer] [employer] [facility] [phone] 07/28/24 1330 Time Spent Start Time 0955 Stop Time 1010 Time Calculation (min) 15 min Patient Spiritual Assessment Spirituality Assessed Focus of Care Clinical Encounter Type Visited With Patient Response Type Routine visit Routine Visit Follow-up Reason for visit Support;Anxiety Outcomes and Progress Demonstrating care and respect Achieved Meaning making (Memory making) Partially Achieved Establish rapport and connectedness Partially Achieved Sense of peace Partially Achieved Lessen anxiety Partially Achieved Lessen someone's feelings of lonliness Achieved Interventions Interventions Active listening;Offer emotional support;Offer spiritual/gnosticism support * Valentina Brown MD - 07/27/2024 2:21 PM CDT Medicine Daily Progress Note Patient: Lei Rodriguez : 1960 (63 y.o.) Date of Admission: 07/07/2024 Date of Service: 07/27/24 SUBJECTIVE Interval Events: - Vitals stable overnight - Yesterday, patient distraught in afternoon, refusing labs, refusing BG checks, insulin. Took off telemetry and pulled out IV - Blood sugars elevated into 300s in setting of refused insulin - This AM, patient is calmer, agreeable to IV replacement, agreeable to going for GT. Denies acutechest pain, concerns regarding breathing, lightheadedness. States headache improved and states her ear is irritated from sleeping on it but improving since she started lying down on her other side Plan for Today: - GT to re-evaluate TV vegetation - Will liberalize diet and continue to monitor volume status given non-adherence to Na restriction at home and significant distress over sodium restriction inpatient - No other changes to plan OBJECTIVE Vitals Most Recent: Vitals: 07/27/24 1416 BP: 122/62 Pulse: 112 Resp: 22 Temp: SpO2: 100% 24 Hour Min/Max: Temp Min: 36.3 ??C (97.3 ??F) Max: 36.7 ??C (98.1 ??F) Pulse Min: 83 Max: 112 BP Min: 111/67 Max: 152/72 Resp Min: 14 Max: 27 SpO2 Min: 93 % Max: 100 % Intake/Output Intake/Output Summary (Last 24 hours) at 07/27/2024 1422 Last data filed at 07/26/2024 2100 Gross per 24 hour Intake 540 ml Output -- Net 540 ml Current Medications Scheduled Meds: Scheduled Medications Medication Dose Route Frequency acetaminophen (TYLENOL) tablet 1,000 mg 1,000 mg oral Q8H apixaban (ELIQUIS) tablet 5 mg 5 mg oral Q12H GALINA cefadroxil (DURICEF) 500 mg capsule 1,000 mg 1,000 mg oral BID escitalopram (LEXAPRO) tablet 10 mg 10 mg oral Daily furosemide (LASIX) tablet 40 mg 40 mg oral Daily insulin glargine (LANTUS, SEMGLEE) 100 unit/mL injection 26 Units 26 Units subcutaneous QAM insulin lispro (HumaLOG, ADMELOG) 100 unit/mL injection 0-10 Units 0-10 Units subcutaneous TID withmeals insulin lispro (HumaLOG, ADMELOG) 100 unit/mL injection 0-5 Units 0-5 Units subcutaneous Nightly insulin lispro (HumaLOG, ADMELOG) 100 unit/mL injection 11 Units 11 Units subcutaneous TID with meals levothyroxine (SYNTHROID) tablet 75 mcg 75 mcg oral Daily - 0600 lidocaine (ASPERCREME) 4 % patch 1 patch 1 patch transdermal Q24H magnesium oxide (MAG-OX) tablet 800 mg 800 mg oral Daily metoprolol XL (TOPROL-XL) extended release tablet 100 mg 100 mg oral Daily mirabegron ER (MYRBETRIQ) extended release tablet 25 mg 25 mg oral Daily nortriptyline (PAMELOR) capsule 10 mg 10 mg oral Nightly pantoprazole DR (PROTONIX) extended release tablet 20 mg 20 mg oral Daily sacubitriL-valsartan (ENTRESTO) 24-26 mg tablet 1 tablet 1 tablet oral BID senna-docusate (PERICOLACE) 8.6-50 mg per tablet 1 tablet 1 tablet oral BID sodium chloride 0.9% flush 0.5-20 mL 0.5-20 mL intra-catheter Q8H GALINA sodium chloride 0.9% flush 0.5-20 mL 0.5-20 mL intra-catheter Q8H GALINA sodium chloride 0.9% flush 5-10 mL 5-10 mL intra-catheter Q12H GALINA spironolactone (ALDACTONE) split tablet 12.5 mg 12.5 mg oral Daily Continuous Meds: Current Facility-Administered Medications Medication Dose Route Frequency Last Admin sodium chloride 0.9% 30 mL/hr intravenous Continuous 30 mL/hr at 07/27/24 1132 PRN Meds: PRN Medications Medication Dose Route Frequency Last Admin Carrier Fluids for Secondary Infusion - 0.9% Sodium Chloride 30 mL intravenous PRN Carrier Fluids for Secondary Infusion - 0.9% Sodium Chloride 30 mL intravenous PRN 30 mL at 07/25/24 1621 cyclobenzaprine (FLEXERIL) tablet 5 mg 5 mg oral TID PRN 5 mg at 07/23/24 1133 dextrose gel in packet 15 g 15 g oral Q15 Min PRN Or dextrose (D10W) 10% bolus 250 mL 250 mL intravenous Q15 Min PRN glucagon injection 1 mg 1 mg intramuscular Q30 Min PRN 1 mg at 07/21/24 1420 lidocaine (cardiac) (XYLOCAINE) preservative free injection intravenous PRN 100 mg at 07/27/24 1335 lidocaine (LMX) 4 % cream 1 Application 1 Application topical QID PRN ondansetron ODT (ZOFRAN-ODT) disintegrating tablet 4 mg 4 mg oral Q6H PRN Or ondansetron (ZOFRAN) injection 4 mg 4 mg intravenous Q6H PRN 4 mg at 07/25/24 2133 phenylephrine (FILIPPO-SYNEPHRINE) 5 mg/50 mL (100 mcg/mL) in sodium chloride 0.9% (premix) intravenousContinuous PRN 0.4 mcg/kg/min at 07/27/24 1404 polyethylene glycol (MIRALAX) packet 17 g 17 g oral Daily PRN 17 g at 07/21/24 1422 propofoL (DIPRIVAN) 10 mg/mL IV intravenous PRN 20 mg at 07/27/24 1410 propofoL (DIPRIVAN) 10 mg/mL IV intravenous Continuous PRN Stopped at 07/27/24 1412 ramelteon (ROZEREM) tablet 8 mg 8 mg oral Nightly PRN 8 mg at 07/25/242005 sodium chloride 0.9% flush 0.5-20 mL 0.5-20 mL intra-catheter PRN sodium chloride 0.9% flush 0.5-20 mL 0.5-20 mL intra-catheter PRN sodium chloride 0.9% flush 5-20 mL 5-20 mL intra-catheter PRN Physical Exam Physical Exam: Gen: No apparent distress. Resting comfortably. Cooperative. HEENT: No conjunctival pallor or injection, no icterus. No nasal discharge. Moist mucus membranes. Cardiac: Irregularly irregular rate and rhythm, normal S1/S2. No murmurs appreciated Pulm: Clear to auscultation bilaterally without crackles, wheezes, rhonchi Abdomen: Soft. No tenderness or distension. Extremity: Warm. No edema. No clubbing or cyanosis. Neuro: Alert and orientedx3. No focal deficits. Voiced understanding on reason for being in hospital, benefits from simple explanations Skin: No lesions, erythema, or skin changes. Psych: Mood appropriate. Appropriate insight. Laboratory Results Recent Results (from the past 24 hour(s)) POCT glucose Collection Time: 07/26/24 4:22 PM Result Value Ref Range Glucose, POC 344 (H) 70 - 199 mg/dL POCT glucose Collection Time: 07/26/24 4:31 PM Result Value Ref Range Glucose, POC 332 (H) 70 - 199 mg/dL POCT glucose Collection Time: 07/26/24 9:02 PM Result Value Ref Range Glucose, POC 259 (H) 70 - 199 mg/dL POCT glucose Collection Time: 07/27/24 8:06 AM Result Value Ref Range Glucose, POC 216 (H) 70 - 199 mg/dL POCT glucose Collection Time: 07/27/24 11:27 AM Result Value Ref Range Glucose, POC 208 (H) 70 - 199 mg/dL Imaging Results IR Follow Up Inpatient Narrative: EXAMINATION: INTERVENTIONAL RADIOLOGY FOLLOW-UP VISIT REFERRAL: Dr. RUSS PRIDE has referred this patient for non-tunneled central venous catheter compared (vale) placement. HISTORY: 63-year-old female with endocarditis in [...] canceled to avoid a potential unnecessary procedure. Impression: Canceled non-tunneled central venous catheter placement due to changes of antibiotic regimen and incomplete discharge plan. If it is determined that a line is still needed once the discharge plan has been determined a new consult can be placed. Dictated by: Terrance Martinez MD --- Electronically signed by: Maria Luisa Coats MD ASSESSMENT & PLAN Lei Rodriguez is a 63 y.o. female with a PMHx significant for MSSA bacteremia (05/2024), A-fib,HFrEF (EF 30%), T2DM, GERD, Intellectual disability, OAB, JOSE, and hypothyroidism who presented to OSH 06/28 for back pain. Found to have + blood cx for staph aureus and CT c/f OM. Tx to [facility] for further evaluation and treatment. 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 #MSSA TV Endocarditis, recurrent, secondary to infected ICD lead #History of Vfib/VT Recent admit 05/2024 for MSSA bacteremia. Per outside hospital, TTE and GT no vegetations on valvesor on ICD wires. Treated with 4 weeks of IV Ancef ending 06/21. Review of ID notes from OSH show blood cultures remained clear on 06/13. 07/01 blood cx were drawn x2, 1/ then second set / MSSA. Vanc+ Ancef started, Vanc d/c 07/03. 07/02 cx NGTD. Concern for lack of source control given recurrence, with potential sources including ICD, heart valves, osteomyelitis of spine given patient's back pain. Ongoing assessment throughout admission. BCx on admission 07/08/24 no growth, HIV NR. PET 07/23/24 no evidence of infection in spine. TTE 07/07/24 demonstrated echodensity on V lead of ICD, GT demonstrating vegetation on TV without vegetation on ICD, as well as thrombus in LA. ICD was interrogated showing shocks on 06/10/24 for ventricular arrhythmia, not pacer dependent. ICD removed 07/13/24.Per multidisciplinary discussion with CTS, valvular, not a candidate for angiovac or TV surgery. Retained wire in PA represents persistent potential source. MRI not safe given retained wire, and wirelikely to be lifetime source for recurrent infection as removal would be extremely high risk per CTS and vascular surgery. Current Plan: - Cardiac surgery, EP, ID consulted, appreciate ongoing recommendations - s/p Dalbavancin 07/25, repeat on 08/01 for 6 weeks MSSA IE coverage. On lifetime cefadroxil 1 mg PO BID suppression - continuous tele 07/27 - GT today to re-evaluate valve and determine plans for ICD #MARK, resolved Cr elevated to 1.66 in PM 07/18 labs. Urine lytes FeUrea consistent with pre- renal, suspect most likely in setting of transient hypotension during RVR 07/18 afternoon. UA not consistent with UTI, Cr improved to baseline since 07/21 #Hx of intellectual disability/developmental delay #Agitation #Concern for suicidality Sister Dilia currently takes care of patient, other sister Peg assists. Both discuss pt medical decisions together. Patient is not consentable - As in interval history 07/18, patient expressed sentiments of preferring to over remaining in hospital. Per assessment by primary team, not felt to be actively suicidal at this time, deferred sitter - Psychiatry consulted, appreciate further recommendations. Haldol 2 mg PRN for agitation, avoid further benzos due to concern of delirium #HFrEF - compensated EF of 30% on 05/2024 echocardiogram, mild-mod MR, RVSP 42 mild-mod TR. On chart review, patient hadHFrEF dating back to at least 2016, though etiology of this not clearly established. Current GDMT includes metoprolol, Entresto 24-26 BID, furosemide 40 daily - Not on Farxiga due to recurrent UTI - Have not increased Entresto further as many BPs in 100s systolic throughout admission - Initiated spironolactone 12.5 mg 07/09 - CTA coronary obtained 07/16 without evidence of CAD (calcium score 0) - Cardiac sarcoid protocol 07/23/24 without active inflammatory process in the myocardium #Persistent atrial fibrillation #MAULIK Thrombus In AFib on admission. Previously on Tikosyn, however, taken off of Tikosyn after admission for MSSA, and was continued on Xarelto for AC and Coreg for rate control in May. GT in May 2024 performed to eval for endocarditis showed LA thrombus; had been on Xarelto at the time per chart review. At OSH just prior to this admission, patient had RVR and received dual tim blockade with dilt and metoprolol, stopped dilt 2/2 reduced EF and continued on metoprolol, increased to 75 daily after RVRon 07/18 in setting of acute agitation. Currently rate controlled. - anticoagulation: heparin gtt -> Eliquis 07/14 - metoprolol succinate 75 -> 100 for 07/27 #T2DM Home regimen: glargine 18u; Lispro 10 TID + SSI. A1c here 7.7 on 07/07/24. - Currently on Lantus 26 and mealtime 9 TID + HDSSI given hyperglycemia - poorly controlled 07/21-14 given hypoglycemia on 07/21, poor PO intake in setting of sarcoid dieton 07/22 - POC glucose TIDAC #Anemia: Hgb 10.8 on arrival. Bl: 11-12. MCV elevated. B12 > 1000 at OSH, Folate wnl. CTM #Recurrent UTI #OAB Per family, has been treated multiple times recently for UTIs. Her symptoms are not urinary in nature, her symptoms typically are becoming delirious and belligerent. UA at outside hospital with 0-5 WBC, 3+ nitrate. Cx was performed which showed >100,000 colonies E coli and per documentation completed course of ceftriaxone for UTI. - Given ongoing concerns with family surrounding possible UTI, UA 07/19 negative - Home Vibegron 75 --> change to Mirabegron for formulary #Hypothyroidism: Synthroid 75mcg, TSH 2.8 #Depression: Continue Lexapro 10, nortriptyline 10 #GERD: Pantoprazole 20 #Constipation: Senna-Docusate BID #JOSE: ordered CPAP, pt reportedly intermittently compliant at home Dispo Planning: - GT Tuesday to re-evaluate valve, determine ICD - Given shift to Dalbavancin will not need home Abx, can discharge once ICD replaced (timing pending GT) Code Status: Full Code Disposition: pending Best contact: Primary Emergency Contact: Dilia Moise Diet: Adult Diet Restricted; 2 GM Sodium; Consistent Carbohydrate; Send on Disposables VTE Prophylaxis: Eliquis PT: PT Recommendation/Plan: Jail Facility OT:OT Recommendation: Jail Facility Valentina Brown MD PGY-1 Internal Medicine Cosigned by Suman Chávez MD at 07/27/2024 6:07 PM CDT Associated attestation - Suman Chávez MD - 07/27/2024 6:07 PM CDT Attending Documentation I have seen and examined the patient on 07/27/24. I agree with the findings and plan of care as documented in the resident's/fellow's note. Patient with ICED endocarditis s/p ICD extraction and TV endocarditis. Had GT today, result pending. Supplementary Attestation Today, I am treating the patient for TV endocarditis which is in moderate exacerbation, progression, or experiencing treatment side effects as evidenced by clinical, as described in the note. Suman Chávez MD 07/27/2024 5:57 PM * Jennifer Webb RD - 07/27/2024 12:59 PM CDT Nutrition Screen Note Pt. Screened for nutritional assessment secondary to Follow up Past Medical History: Diagnosis Date A-fib (CMS/HCC) (HCC) CHF (congestive heart failure) (CMS/HCC) (HCC) Diabetes mellitus (HCC) GERD (gastroesophageal reflux disease) Hypertension Intellectual disability OAB (overactive bladder) Sleep apnea Thyroid disease Past Surgical History: Procedure Laterality Date CARDIAC DEFIBRILLATOR PLACEMENT CHOLECYSTECTOMY INSERT / REPLACE / REMOVE PACEMAKER IR PICC LINE PLACEMENT > 5 YEARS N/A 06/05/2024 OTHER SURGICAL HISTORY 05/31/2024 GT/CARDIOVERSION Anthropometrics Weight: 108.8 kg (239 lb 14.4 oz) Admission Weight : 113.6 kg Weight Change: 1.08 kg (2.40 lbs) IBW/kg (Calculated) : 56.7 kg Height: 165.1 cm (5' 5 ) Weight in (lb) to have BMI = 25: 149.9 BMI (Calculated): 39.9 Adult Malnutrition Scoring Tool (MST) What diet do you follow at home?: none Have You Recently Lost Weight Without Trying?: No Have you been eating poorly because of a decreased appetite?: No Malnutrition Screening Tool (MST) Score: 0 Dietary Orders (From admission, onward) Start Ordered 07/27/24 0001 NPO Diet Diet effective midnight 07/26/24 0939 07/07/24 2100 Bedtime snack At bedtime Comments: If bedtime BG is less than 100mg/dl, give patient a 15 gram carbohydrate snack. 07/07/24 0108 Assessment / Impression: Pt reports good appetite, states no N/V/D and bowel movement 3 days ago which is normal for her. Documented po intakes appear good, continue to follow. Jennifer Webb MS, RD, LD [phone] * Russel Workman MD - 07/27/2024 11:23 AM CDT GT Pre-evaluation History/Clinical Summary: 63-year-old female with a history of recurrent MSSA bacteremia and endocarditis, NICM (EF30% TTE 05/2024), VT s/p ICD shocks (s/p ICD extraction), persistent Afib w/RVR (Eliquis and rate control with Metropolol), MAULIK thrombus, DMT2, GERD, JOSE (intermittent CPAP compliance at home). Requesting repeatTEE to re-evaluate TV vegetation. GT Indication: rule out endocarditis Decisional capacity to consent for GT? yes Prior GT? yes - Details of prior GT: Mildly dilated LV with moderate global hypokinesis. [...] effusion. Mild atherosclerosis of the descending aorta. Prior TTE? yes - Details of prior TTE: Mildly dilated LV, moderate to severe LV systolic dysfunction, EF=30%. Normal RV size and function.Mild biatrial enlargement. Normal IVC. Normal size aortic root. Mild MR, AR, TR. Small (9x7mm), modile echodensity attached to the V lead at the atrial level just proximal to TV, consider thrombus vs. vegetation. Cannot exclude involvement of TV. Consider GT to further evaluate. 1) Anesthesia/Sedation Risks: Prior complications with sedation or anesthesia: no Loose teeth or dentures: no EF <30%, RV dysfunction, or recent shock: no JOSE or severe lung disease: no ASA: Per Anesthesia 2) Bleeding Risks: Recent bleeding or contraindications to anticoagulation: no Current anticoagulation: apixaban Lab Results Component Value Date INR 1.22 (H) 07/24/2024 INR 1.12 07/14/2024 INR 1.47 (H) 07/07/2024 No results found for: PTT Lab Results Component Value Date LABPLAT 332 07/25/2024 LABPLAT 333 07/24/2024 LABPLAT 319 07/23/2024 3) GI Risks: Difficulty swallowing: no Prior surgery or known disease of esophagus or stomach: yes - Review of Systems: Review of systems as per HPI and, otherwise all other systems are negative. PMHX: has a past medical history of A-fib (CMS/HCC) ([facility]), CHF (congestive heart failure) (CMS/HCC)([facility]), Diabetes mellitus ([facility]), GERD (gastroesophageal reflux disease), Hypertension, Intellectual disability, OAB (overactive bladder), Sleep apnea, and Thyroid disease. PSHX: has a past surgical history that includes Cardiac defibrillator placement; Insert / replace /remove pacemaker; Cholecystectomy; Other surgical history (05/31/2024); and IR PICC Line Placement Over 5 Years of Age (N/A, 06/05/2024). Family Hx: family history is not on file. Social Hx: reports that she has never smoked. She has never used smokeless tobacco. Patient denies consuming alcoholic drinks. Allergies: Allergies Allergen Reactions Sulfa (Sulfonamide Antibiotics) Home Medications: HOME MEDICATIONS : albuterol HFA (PROVENTIL HFA,VENTOLIN HFA,PROAIR HFA) 90 mcg/actuation inhaler BASAGLAR 100 unit/mL (3 mL) pen for injection cholecalciferol (VITAMIN D-3) 5,000 unit tablet docusate sodium (COLACE) 100 mg capsule Entresto 24-26 mg tablet escitalopram (LEXAPRO) 10 mg tablet Farxiga 10 mg tablet ferrous sulfate 325 mg (65 mg of elemental iron) tablet fluticasone propionate (FLONASE) 50 mcg/actuation nasal spray Gemtesa 75 mg tablet insulin lispro (HumaLOG) 100 unit/mL pen for injection levothyroxine (SYNTHROID) 75 mcg tablet magnesium oxide (MAG-OX) 400 mg (241.3 mg elemental magnesium) tablet metoprolol XL (TOPROL-XL) 50 mg extended release tablet midodrine (PROAMATINE) 5 mg tablet multivit pmlggnkc-wkey-SY-calcium (THERA-M) 9 mg iron-400 mcg tablet nortriptyline (PAMELOR) 10 mg capsule omeprazole (PriLOSEC) 20 mg capsule pen needle, diabetic 32 gauge x 5/32 needle potassium chloride ER 20 mEq CR tablet Xarelto 20 mg tablet Current Medications: acetaminophen, 1,000 mg, oral, Q8H apixaban, 5 mg, oral, Q12H GALINA cefadroxil, 1,000 mg, oral, BID escitalopram, 10 mg, oral, Daily furosemide, 40 mg, oral, Daily insulin glargine, 26 Units, subcutaneous, QAM insulin lispro, 0-10 Units, subcutaneous, TID with meals insulin lispro, 0-5 Units, subcutaneous, Nightly insulin lispro, 11 Units, subcutaneous, TID with meals levothyroxine, 75 mcg, oral, Daily - 0600 lidocaine, 1 patch, transdermal, Q24H magnesium oxide, 800 mg, oral, Daily metoprolol XL, 100 mg, oral, Daily mirabegron ER, 25 mg, oral, Daily nortriptyline, 10 mg, oral, Nightly pantoprazole DR, 20 mg, oral, Daily sacubitriL-valsartan, 1 tablet, oral, BID senna-docusate, 1 tablet, oral, BID sodium chloride 0.9%, 0.5-20 mL, intra-catheter, Q8H GALINA sodium chloride 0.9%, 0.5-20 mL, intra-catheter, Q8H GALINA sodium chloride 0.9%, 5-10 mL, intra-catheter, Q12H GALINA spironolactone, 12.5 mg, oral, Daily Physical Exam: General appearance: no acute distress HEENT: NCAT, MMM, anicteric Lungs: CTAB, no w/r/r, non-labored Heart: RRR, S1, S2 normal, no murmur, rub or gallop. JVP not elevated, no LE edema Abdomen: soft, NT/ND; bowel sounds normal Extremities: extremities normal, warm and well-perfused, equal pulses Skin: warm and dry Neurologic: No abnormal movements, non-focal exam Labs and Imaging: Reviewed Plan: Proceed with GT Russel Workman MD Abrasive Sawyer Time: 11:23 AM Date: 07/27/2024 Cosigned by Hernan Phelps MD at 07/27/2024 1:13 PM CDT * Jade Machado PTA - 07/27/2024 11:05 AM CDT Physical Therapy 07/27/24 1105 PT Last Visit PT Missed Visit Reason Procedure/testing/appointment;Unavailable (GT) * Angel Vick - 07/26/2024 12:13 PM CDT Spiritual Care Note Twister Operator Noah Nicanor [phone] 07/26/24 1200 Time Spent Start Time 0935 Stop Time 0945 Time Calculation (min) 10 min Patient Spiritual Assessment Spirituality Assessed Focus of Care Clinical Encounter Type Visited With Patient Response Type Routine visit Routine Visit Follow-up Reason for visit Support;Anxiety Outcomes and Progress Preserve dignity and respect Achieved Demonstrating care and respect Achieved Maira affirmation Partially Achieved Meaning making (Memory making) Partially Achieved Establish rapport and connectedness Partially Achieved Sense of peace Partially Achieved Lessen anxiety Partially Achieved Lessen someone's feelings of lonliness Achieved Interventions Interventions Active listening;Explore cultural values;Explore maira and values;Offer emotional support;Offer spiritual/gnosticism support;Prayer * Valentina Brown MD - 07/26/2024 10:14 AM CDT Medicine Daily Progress Note Patient: Lei Rodriguez : 1960 (63 y.o.) Date of Admission: 07/07/2024 Date of Service: 07/26/24 SUBJECTIVE Interval Events: - Yesterday was seen by ID for consideration of alternative Abx regimen given challenges for home antibiotics. Recommended Dalbavancin 1500 mg IV x 1 07/25 to repeat again 08/01 which will provide upto 6 weeks therapeutic levels to treat MSSA IE and discontinued Ancef. Started cefadroxil 1 g PO BID for lifetime suppression - Given lack of need for home Abx once ICD replaced, deferred Vale placement - Patient reported ear pain yesterday and dizziness, one episode of vomiting. This occurred while NPO and patient reported also feeling shaky with BG 89. Provider checked ear yesterday without findings concerning for infection. On discussion with patient today she states ear pain has been persistent for months, complaining of this only today and yesterday, no further nausea events today - Vital signs stable - In afib on tele, rates up to 130s yesterday Plan for Today: - GT, NPO at midnight - Increasing metoprolol to 100 given elevated HR today/yesterday on tele OBJECTIVE Vitals Most Recent: Vitals: 07/26/24 0908 BP: 135/84 Pulse: 112 Resp: Temp: SpO2: 96% 24 Hour Min/Max: Temp Min: 36.4 ??C (97.5 ??F) Max: 36.9 ??C (98.4 ??F) Pulse Min: 60 Max: 112 BP Min: 123/64 Max: 144/80 Resp Min: 18 Max: 20 SpO2 Min: 93 % Max: 100 % Intake/Output Intake/Output Summary (Last 24 hours) at 07/26/2024 1014 Last data filed at 07/26/2024 0900 Gross per 24 hour Intake 250 ml Output 0 ml Net 250 ml Current Medications Scheduled Meds: Scheduled Medications Medication Dose Route Frequency acetaminophen (TYLENOL) tablet 1,000 mg 1,000 mg oral Q8H apixaban (ELIQUIS) tablet 5 mg 5 mg oral Q12H GALINA cefadroxil (DURICEF) 500 mg capsule 1,000 mg 1,000 mg oral BID escitalopram (LEXAPRO) tablet 10 mg 10 mg oral Daily furosemide (LASIX) tablet 40 mg 40 mg oral Daily insulin glargine (LANTUS, SEMGLEE) 100 unit/mL injection 26 Units 26 Units subcutaneous QAM insulin lispro (HumaLOG, ADMELOG) 100 unit/mL injection 0-10 Units 0-10 Units subcutaneous TID withmeals insulin lispro (HumaLOG, ADMELOG) 100 unit/mL injection 0-5 Units 0-5 Units subcutaneous Nightly insulin lispro (HumaLOG, ADMELOG) 100 unit/mL injection 11 Units 11 Units subcutaneous TID with meals levothyroxine (SYNTHROID) tablet 75 mcg 75 mcg oral Daily - 0600 lidocaine (ASPERCREME) 4 % patch 1 patch 1 patch transdermal Q24H magnesium oxide (MAG-OX) tablet 800 mg 800 mg oral Daily metoprolol XL (TOPROL-XL) extended release tablet 75 mg 75 mg oral Daily mirabegron ER (MYRBETRIQ) extended release tablet 25 mg 25 mg oral Daily nortriptyline (PAMELOR) capsule 10 mg 10 mg oral Nightly pantoprazole DR (PROTONIX) extended release tablet 20 mg 20 mg oral Daily sacubitriL-valsartan (ENTRESTO) 24-26 mg tablet 1 tablet 1 tablet oral BID senna-docusate (PERICOLACE) 8.6-50 mg per tablet 1 tablet 1 tablet oral BID sodium chloride 0.9% flush 0.5-20 mL 0.5-20 mL intra-catheter Q8H GALINA sodium chloride 0.9% flush 0.5-20 mL 0.5-20 mL intra-catheter Q8H GALINA sodium chloride 0.9% flush 5-10 mL 5-10 mL intra-catheter Q12H GALINA spironolactone (ALDACTONE) split tablet 12.5 mg 12.5 mg oral Daily Continuous Meds: Current Facility-Administered Medications Medication Dose Route Frequency Last Admin sodium chloride 0.9% 30 mL/hr intravenous Continuous Stopped at 07/25/24 1622 PRN Meds: PRN Medications Medication Dose Route Frequency Last Admin Carrier Fluids for Secondary Infusion - 0.9% Sodium Chloride 30 mL intravenous PRN Carrier Fluids for Secondary Infusion - 0.9% Sodium Chloride 30 mL intravenous PRN 30 mL at 07/25/24 1621 cyclobenzaprine (FLEXERIL) tablet 5 mg 5 mg oral TID PRN 5 mg at 07/23/24 1133 dextrose gel in packet 15 g 15 g oral Q15 Min PRN Or dextrose (D10W) 10% bolus 250 mL 250 mL intravenous Q15 Min PRN glucagon injection 1 mg 1 mg intramuscular Q30 Min PRN 1 mg at 07/21/24 1420 lidocaine (LMX) 4 % cream 1 Application 1 Application topical QID PRN ondansetron ODT (ZOFRAN-ODT) disintegrating tablet 4 mg 4 mg oral Q6H PRN Or ondansetron (ZOFRAN) injection 4 mg 4 mg intravenous Q6H PRN 4 mg at 07/25/24 213 polyethylene glycol (MIRALAX) packet 17 g 17 g oral Daily PRN 17 g at 07/21/24 142 ramelteon (ROZEREM) tablet 8 mg 8 mg oral Nightly PRN 8 mg at 07/25/242005 sodium chloride 0.9% flush 0.5-20 mL 0.5-20 mL intra-catheter PRN sodium chloride 0.9% flush 0.5-20 mL 0.5-20 mL intra-catheter PRN sodium chloride 0.9% flush 5-20 mL 5-20 mL intra-catheter PRN Physical Exam Physical Exam: Gen: No apparent distress. Resting comfortably. Cooperative. HEENT: No conjunctival pallor or injection, no icterus. No nasal discharge. Moist mucus membranes. Cardiac: Irregularly irregular rate and rhythm, normal S1/S2. No murmurs appreciated Pulm: Clear to auscultation bilaterally without crackles, wheezes, rhonchi Abdomen: Soft. No tenderness or distension. Extremity: Warm. No edema. No clubbing or cyanosis. Neuro: Alert and orientedx3. No focal deficits. Voiced understanding on reason for being in hospital, benefits from simple explanations Skin: No lesions, erythema, or skin changes. Psych: Mood appropriate. Appropriate insight. Laboratory Results Recent Results (from the past 24 hour(s)) POCT glucose Collection Time: 07/25/24 11:57 AM Result Value Ref Range Glucose, POC 89 70 - 199 mg/dL POCT glucose Collection Time: 07/25/24 3:00 PM Result Value Ref Range Glucose, POC 104 70 - 199 mg/dL POCT glucose Collection Time: 07/25/24 5:16 PM Result Value Ref Range Glucose, POC 244 (H) 70 - 199 mg/dL POCT glucose Collection Time: 07/25/24 8:00 PM Result Value Ref Range Glucose, POC 124 70 - 199 mg/dL CBC without differential Collection Time: 07/25/24 8:04 PM Result Value Ref Range WBC 10.5 (H) 3.8 - 9.9 K/cumm Hgb 12.7 11.9 - 15.5 g/dL Hct 38.0 35.6 - 45.5 % Plt 332 150 - 400 K/cumm MPV 9.4 9.1 - 12.3 fL RBC 3.92 3.90 - 5.20 M/cumm MCV 96.9 (H) 81.3 - 96.4 fL MCH 32.4 27.1 - 33.3 pg MCHC 33.4 32.3 - 35.7 g/dL RDW CV 12.7 11.1 - 14.9 % RDW SD 44.7 35.7 - 48.1 fL NRBC abs 0.00 0.00 - 0.01 K/cumm Comprehensive metabolic panel Collection Time: 07/25/24 8:04 PM Result Value Ref Range Sodium 139 135 - 145 mmol/L Potassium, pl 3.8 3.3 - 4.9 mmol/L Chloride 99 97 - 110 mmol/L CO2 37 (H) 22 - 32 mmol/L Anion gap 3 2 - 15 mmol/L BUN 14 6 - 25 mg/dL Creatinine 0.71 0.60 - 1.10 mg/dL Glucose 125 70 - 199 mg/dL Calcium 9.7 8.5 - 10.3 mg/dL Bilirubin, total 0.3 0.1 - 1.2 mg/dL Protein, pl 7.7 6.5 - 8.5 g/dL Albumin 3.4 (L) 3.5 - 5.0 g/dL Alk phos 138 (H) 40 - 130 Units/L ALT 13 7 - 45 Units/L AST 32 10 - 45 Units/L Magnesium Collection Time: 07/25/24 8:04 PM Result Value Ref Range Magnesium 1.9 1.4 - 2.5 mg/dL eGFR Collection Time: 07/25/24 8:04 PM Result Value Ref Range eGFR >90 >=60 mL/min/1.73 m2 POCT glucose Collection Time: 07/26/24 8:16 AM Result Value Ref Range Glucose, POC 146 70 - 199 mg/dL Imaging Results IR Follow Up Inpatient Narrative: EXAMINATION: INTERVENTIONAL RADIOLOGY FOLLOW-UP VISIT REFERRAL: Dr. RUSS PRIDE has referred this patient for non-tunneled central venous catheter compared (vale) placement. HISTORY: 63-year-old female with endocarditis in [...] canceled to avoid a potential unnecessary procedure. Impression: Canceled non-tunneled central venous catheter placement due to changes of antibiotic regimen and incomplete discharge plan. If it is determined that a line is still needed once the discharge plan has been determined a new consult can be placed. Dictated by: Terrance Martinez MD --- Electronically signed by: Maria Luisa Coats MD ASSESSMENT & PLAN Lei Rodriguez is a 63 y.o. female with a PMHx significant for MSSA bacteremia (05/2024), A-fib,HFrEF (EF 30%), T2DM, GERD, Intellectual disability, OAB, JOSE, and hypothyroidism who presented to OSH 06/28 for back pain. Found to have + blood cx for staph aureus and CT c/f OM. Tx to [facility] for further evaluation and treatment. 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 #MSSA TV Endocarditis, recurrent, secondary to infected ICD lead #History of Vfib/VT Recent admit 05/2024 for MSSA bacteremia. Per outside hospital, TTE and GT no vegetations on valvesor on ICD wires. Treated with 4 weeks of IV Ancef ending 06/21. Review of ID notes from OSH show blood cultures remained clear on 06/13. 07/01 blood cx were drawn x2, 10/11 then second set / MSSA. Vanc+ Ancef started, Vanc d/c 07/03. 07/02 cx NGTD. Concern for lack of source control given recurrence, with potential sources including ICD, heart valves, osteomyelitis of spine given patient's back pain. Ongoing assessment throughout admission. BCx on admission 07/08/24 no growth, HIV NR. PET 07/23/24 no evidence of infection in spine. TTE 07/07/24 demonstrated echodensity on V lead of ICD, GT demonstrating vegetation on TV without vegetation on ICD, as well as thrombus in LA. ICD was interrogated showing shocks on 06/10/24 for ventricular arrhythmia, not pacer dependent. ICD removed 07/13/24.Per multidisciplinary discussion with CTS, valvular, not a candidate for angiovac or TV surgery. Retained wire in PA represents persistent potential source. MRI not safe given retained wire, and wirelikely to be lifetime source for recurrent infection as removal would be extremely high risk per CTS and vascular surgery. Current Plan: - Cardiac surgery, EP, ID consulted, appreciate ongoing recommendations - continuous tele 07/26 - GT 07/27 to re-evaluate valve and determine plans for ICD - After discussion with ID, received Dalbavancin 07/25, should repeat 08/01, which will provide coverage for MSSA IE for 6 weeks. Started on lifetime cefadroxil 1 mg PO BID suppression beginning 07/25 PM #MARK, resolved Cr elevated to 1.66 in PM 07/18 labs. Urine lytes FeUrea consistent with pre- renal, suspect most likely in setting of transient hypotension during RVR 07/18 afternoon. UA not consistent with UTI, Cr improved to baseline since 07/21 #Hx of intellectual disability/developmental delay #Agitation #Concern for suicidality Sister Dilia currently takes care of patient, other sister Peg assists. Both discuss pt medical decisions together. Patient is not consentable - As in interval history 07/18, patient expressed sentiments of preferring to over remaining in hospital. Per assessment by primary team, not felt to be actively suicidal at this time, deferred sitter - Psychiatry consulted, appreciate further recommendations. Haldol 2 mg PRN for agitation, avoid further benzos due to concern of delirium #HFrEF - compensated EF of 30% on 05/2024 echocardiogram, mild-mod MR, RVSP 42 mild-mod TR. On chart review, patient hadHFrEF dating back to at least 2016, though etiology of this not clearly established. Current GDMT includes metoprolol, Entresto 24-26 BID, furosemide 40 daily - Not on Farxiga due to recurrent UTI - Have not increased Entresto further as many BPs in 100s systolic throughout admission - Initiated spironolactone 12.5 mg 07/09 - CTA coronary obtained 07/16 without evidence of CAD (calcium score 0) - Cardiac sarcoid protocol 07/23/24 without active inflammatory process in the myocardium #Persistent atrial fibrillation #MAULIK Thrombus In AFib on admission. Previously on Tikosyn, however, taken off of Tikosyn after admission for MSSA, and was continued on Xarelto for AC and Coreg for rate control in May. GT in May 2024 performed to eval for endocarditis showed LA thrombus; had been on Xarelto at the time per chart review. At OSH just prior to this admission, patient had RVR and received dual tim blockade with dilt and metoprolol, stopped dilt 2/ reduced EF and continued on metoprolol, increased to 75 daily after RVRon 07/18 in setting of acute agitation. Currently rate controlled. - anticoagulation: heparin gtt -> Eliquis 07/14 - metoprolol succinate 75 -> 100 for 07/27 #T2DM Home regimen: glargine 18u; Lispro 10 TID + SSI. A1c here 7.7 on 07/07/24. - Currently on Lantus 26 and mealtime 9 TID + HDSSI given hyperglycemia - poorly controlled 07/21-14 given hypoglycemia on 07/21, poor PO intake in setting of sarcoid dieton 07/22 - POC glucose TIDAC #Anemia: Hgb 10.8 on arrival. Bl: 11-12. MCV elevated. B12 > 1000 at OSH, Folate wnl. CTM #Recurrent UTI #OAB Per family, has been treated multiple times recently for UTIs. Her symptoms are not urinary in nature, her symptoms typically are becoming delirious and belligerent. UA at outside hospital with 0-5 WBC, 3+ nitrate. Cx was performed which showed >100,000 colonies E coli and per documentation completed course of ceftriaxone for UTI. - Given ongoing concerns with family surrounding possible UTI, UA 07/19 negative - Home Vibegron 75 --> change to Mirabegron for formulary #Hypothyroidism: Synthroid 75mcg, TSH 2.8 #Depression: Continue Lexapro 10, nortriptyline 10 #GERD: Pantoprazole 20 #Constipation: Senna-Docusate BID #JOSE: ordered CPAP, pt reportedly intermittently compliant at home Dispo Planning: - GT Tuesday to re-evaluate valve, determine ICD - Given shift to [facility] will not need home Abx, can discharge once ICD replaced (timing pending GT) Code Status: Full Code Disposition: pending Best contact: Primary Emergency Contact: MoiseKiloDilia Diet: Adult Diet Restricted; 2 GM Sodium; Consistent Carbohydrate; Send on Disposables VTE Prophylaxis: Eliquis PT: PT Recommendation/Plan: Jail Facility OT:OT Recommendation: Jail Facility Valentina Brown MD PGY-1 Internal Medicine Cosigned by Suman Chávez MD at 07/26/2024 6:23 PM CDT Associated attestation - Suman Chávez MD - 07/26/2024 6:23 PM CDT Attending Documentation I have seen and examined the patient on 07/26/24. I agree with the findings and plan of care as documented in the resident's/fellow's note. Plan for GT tomorrow. Supplementary Attestation Today, I am treating the patient for Tricuspid valve endocarditis, Infected ICD s/p extraction which is in moderate exacerbation, progression, or experiencing treatment side effects as evidenced by clinical and imaging, as described in the note. Suman Chávez MD 07/26/2024 6:22 PM * Jade Machado PTA - 07/26/2024 9:03 AM CDT Physical Therapy Physical Therapy Progress Note NOTE: This is a summary note of the vaz components of the treatment session. For full details, review chart for all flowsheets documented on by this physical therapy clinician on this date. Vital signs documented in vital signs flowsheet. Care plan progress documented in Care Plan Activity. For questions, please review the treatment team and contact the PT or TOOL AND DIE MACHINIST currently assigned to this patient. If a physical therapy clinician is not assigned to this patient, please call [phone]. 07/26/24 0903 PT Last Visit Session Type Treatment PT Received On 07/26/24 Safe Environment Arm band checked;Patient found sitting at edge of bed;Gait belt utilized for all out of bed mobility Subjective Agreeable to Therapy Family/Caregiver Present No Activity Tolerance Activity Tolerance Comments Timmy did not rate Cognition Following Commands Follows multistep commands without difficulty Compliance/Behavior Easy to engage Balance Balance Yes Static Sitting Balance Static Sitting-Balance Support No upper extremity supported;Feet supported Static Sitting-Sitting Surface Bed Static Sitting-Level of Assistance Distant supervision Static Sitting-Comment/# of Minutes Sup to ensure safety Static Standing Balance Static Standing-Balance Support Bilateral upper extremity supported (on 3 w/w) Static Standing-Standing Surface Floor Static Standing-Level of Assistance Close supervision Static Standing-Comment/# of Minutes Sup to ensure safety and balance, vc for upright posture Bed Mobility Bed Mobility Yes Bed Mobility 1 Bed Mobility From 1 Edge of bed Bed Mobility Type 1 To Bed Mobility to 1 Supine Level of Assistance 1 Modified Independent Bed Mobility Comments 1 HOB 30, use of ebd rail for forced production Transfers Transfer Yes Transfer 1 Transfer From 1 Sit Transfer Type 1 To and from Transfer to 1 Stand Technique 1 Sit to stand;Stand to sit Transfer Device 1 Wheeled walker (3 w/w) Transfer Level of Assistance 1 Contact Guard Assist;Minimal verbal cues Trials/Comments 1 vc for technique, hand palcement, and safety Ambulation Ambulation Yes Ambulation 1 Distance (ft) 1 80' (+80') Surface 1 Level tile Device 1 Wheeled walker (3 w/w) Assistance 1 Contact Guard Assist Gait: Requires assist with 1 Maintaining balance Gait: Requires verbal cues to 1 Use assistive device safely;Utilize appropriate gait sequencing;Improve upright posture;Pace activity;Utilize pursed lip breathing Gait Deviations 1 Diamante - decreased;Hip/knee flexion during swing phase - decreased;Posture - flexed;Step length - decreased;Turns - difficulty Quality of Gait 1 vc to maintain proper proximity to w/w Ambulation Comments 1 1 standign rest taken; assist for balance and safety Stairs Stairs No Basic Mobility - 6 Click How much difficulty does the patient have: Turning over in bed 4 How much difficulty does the patient currently have: Sitting down and standing up from a chair witharms? 3 How much difficulty does the patient have: Moving from lying on back to sitting on the side of the bed? 3 How much difficulty does the patient have: Moving to and from a bed to a chair including wheelchair? 3 How much help does the patient currently need: Walk in hospital room? 3 How much help from another person does the patient currently need: Climbing 3-5 steps with a railing? 3 Total 6 Click Score (range 6-24) 19 Score Interpretation 42.48 Safe Environment End of Therapy Session Safe Environment End of Therapy Session Patient left sitting at edge of bed Plan Plan Continue with current plan (per PT) Recommendation/Plan PT Recommendation/Plan Jail Facility Patient at high risk for Falls;Readmission;Injury due to decreased ability to care for self;Injury due to reduced functional status;Injury due to balance deficits Recommend SNF due to Risk of injury at home;Unable to safely care for self in the home;Skilled therapy needed to address care for self in the home;Skilled therapy needed to address functional deficits;Skilled therapy needed for patient to return to prior level of independence PT Frequency during current admission 3-5x/wk PT - Next Appointment 07/27/24 Time Calculation Start Time 902 Stop Time 927 Time Calculation (min) 25 min Multi-Disciplinary Problems (from Physical Therapy) Active Problems Problem: Mobility Start Date: 07/08/24 Goal Start Date Expected End Date End Date LTG - Patient will ambulate community distance 07/08/24 09/09/24 -- Goal Details: With LRAD and mod I Goal Start Date Expected End Date End Date STG - Patient will ambulate 07/08/24 07/30/24 -- Goal Details: 150' with LRAD, DS Goal Start Date Expected End Date End Date STG - Patient will ascend and descend 2 stairs with the following level of assist: 07/08/24 07/30/24 -- Goal Details: SBA and no handrail Problem: Transfers Start Date: 07/08/24 Goal Start Date Expected End Date End Date STG - Patient will transfer sit to and from stand 07/08/24 07/30/24 -- Goal Details: DS Problem: PT Misc Start Date: 07/08/24 Goal Start Date Expected End Date End Date PT STG - Patient and caregivers will participate in and demonstrate understanding of therapeutic exercise and safe mobility strategies to improve independence with functional mobility. 07/08/24 07/30/24 -- * Keyana Mcleod, PT - 07/25/2024 2:50 PM CDT Physical Therapy 07/25/24 1450 General PT Missed Visit Reason Procedure/testing/appointment (DARRON at IR) * Ashley Taylor, PHYSICALLY IMPAIRED TEACHER - 07/25/2024 1:56 PM CDT Infectious Disease Subsequent Consult Note Infectious Disease Team: General 1 Contact Information: Please see [facility] Treatment Team listing for up-to-date contact information. Subjective Chief complaint of MSSA BSI- TV IE and ICD associated IE s/p lead removal Interval History: planning for line placement in IR today. Primary team asking about options for home infusion given patient's distress about being away from home. Objective Anti-infectives (From admission, onward) Start Dose/Rate Route Frequency Ordered Stop 07/07/24 0600 ceFAZolin (ANCEF) 2,000 mg/20 mL in sterile water (premix) 2,000 mg 2,000 mg 400 mL/hr over 3 Minutes intravenous Every 8 hours scheduled 07/07/24 0307 Vitals: 24hr Min/Max: Temp Min: 36.4 ??C (97.5 ??F) Max: 36.5 ??C (97.7 ??F) Pulse Min: 82 Max: 106 BP Min: 110/56 Max: 147/77 Resp Min: 20 Max: 20 SpO2 Min: 96 % Max: 100 % Most Recent : Vitals: 07/25/24 0900 BP: Pulse: Resp: 20 Temp: SpO2: No intake/output data recorded. Active LDAs: Peripheral IV 07/21/24 22 G Posterior;Right Hand (Active) Number of days: 4 Physical Exam: Physical Exam Constitutional: Appearance: She is obese. Comments: Restless, frustrated Eyes: General: No scleral icterus. Cardiovascular: Rate and Rhythm: Regular rhythm. Tachycardia present. Heart sounds: Murmur heard. Pulmonary: Effort: Pulmonary effort is normal. Breath sounds: Normal breath sounds. Abdominal: General: Abdomen is protuberant. Bowel sounds are normal. Palpations: Abdomen is soft. Tenderness: There is no abdominal tenderness. Skin: Findings: No rash. Neurological: Comments: Awake, oriented to person, place, time Psychiatric: Mood and Affect: Mood is anxious. Behavior: Behavior is agitated. Comments: perseverates Lab/Radiology/Diagnostic Review: Lab Results Component Value Date MICROBIOLOGY Final Report: No growth 07/13/2024 MICROBIOLOGY (.) 07/13/2024 Final Report: Few Staphylococcus aureus Methicillin susceptible (MSSA) by penicillin binding protein 2a (PBP2a) testing. This isolate is presumed to be resistant to clindamycin based on detection of inducible clindamycinresistance. Clindamycin may still be effective in some patients. MICROBIOLOGY Final Report: Negative 07/07/2024 MICROBIOLOGY Final Report: No growth 07/07/2024 MICROBIOLOGY Final Report: No growth 07/07/2024 Radiology results were reviewed. No results found. No results found. Assessment/Plan Ms Rodriguez is a 63 y.o. female with Afib, IDDM2, HFrEF s/p AICD, hypothyroidism, and intellectual disability, who was admitted for nenana TV and ICD-associated MSSA endocarditis. She recently completed treatment for complicated MSSA bacteremia at an OSH with four weeks of cefazolin (05/25-06/21). GT at that time did not show any evidence of endocardiac or ICD involvement. She represented to OSH on 06/21 with non- specific complaints and was found to have recurrent MSSA bacteremia (single culture positive 07/01). CT imaging was not suggestive of osteomyelitis but given ongoingcomplaint of back pain was transferred here for consideration of MRI given potential non-compatibility with existing ICD. GT here showed a 1.2 x 0.9 cm vegetation attached to the TV valve. No lesions were noted on ICD wires but out of abundance of caution was taken to OR on 07/13 for device removal, cultures of which subsequently grew MSSA. Of note, she was also found to have an unknown retained wire in her pulmonary artery on imaging that was unable to be removed by CTS. Vascular Surgery evaluated and felt the risks of endoscopic removal outweighed any potential benefit. Source and chronicity of wire is unclear. Plan has been to receive 6 weeks of treatment with IV cefazolin (07/13-08/23) starting from date of ICD removal, followed by long-term suppression with cefadroxil 1g BID given presence of a retained wire in her pulmonary artery. Initially planned to discharge with LifeVest in place and will have ICDre- implanted after a minimum of two weeks of therapy have been completed. Patient remains in the hospital, now with plans for [id number] possibly later this week. Patient has been very distressedabout being in the hospital. Psychiatry has been involved and patient has received antipsychotics requiring security holds. Primary team hopes to discharge her home as soon as it is medically safe. We have concerns about the safety of home infusion for this patient, risks may outweigh the benefits in her case. 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 Regan Today, I am treating the patient for MSSA TV and ICD IE which can cause in the short-term future in the absence of appropriate treatment, as described in the note., Reviewed notes by cardiology, psychiatry to determine appropriate plan of care as in the note., Estimated Creatinine Clearance: 62.5 mL/min (by Cockcroft-Gault based on SCr of 0.84 mg/dL). - reviewed; antibiotics recommended above are dosed accordingly., and The patient is being intensively monitored for antimicrobial toxicityfrom Cefazolin with the following tests: cmp cbc w diff. Ashley Taylor [facility] Nurse Practitioner, Infectious Diseases Team 1 Desk: [phone] Team 1 fellow: [phone] After hours please contact the ID fellow at [phone] Cosigned by Bernardino Regan MD at 07/26/2024 7:21 AM CDT * Valentina Brown MD - 07/25/2024 9:52 AM CDT Medicine Daily Progress Note Patient: Lei Rodriguez : 1960 (63 y.o.) Date of Admission: 07/07/2024 Date of Service: 07/25/24 SUBJECTIVE Interval Events: - Yesterday, patient distraught over concept of sisters helping with home antibiotics. Discussed with sisters and grandson at length, conversations ongoing - Refused BG and insulin yesterday evening, hyperglycemic to 297 overnight - NPO this AM for Vale placement, patient denies acute complaints - Vitals stable, tele in rate controlled afib - Labs stable Plan for Today: - Vale placement today - GT case request for tomorr vs Tuesday to reassess valve - Ongoing discussions regarding home antibiotic plan OBJECTIVE Vitals Most Recent: Vitals: 07/25/24 0900 BP: Pulse: Resp: 20 Temp: SpO2: 24 Hour Min/Max: Temp Min: 36.4 ??C (97.5 ??F) Max: 36.5 ??C (97.7 ??F) Pulse Min: 82 Max: 106 BP Min: 110/56 Max: 147/77 Resp Min: 20 Max: 20 SpO2 Min: 96 % Max: 100 % Intake/Output No intake or output data in the 24 hours ending 07/25/24 0952 Current Medications Scheduled Meds: Scheduled Medications Medication Dose Route Frequency apixaban (ELIQUIS) tablet 5 mg 5 mg oral Q12H [facility] ceFAZolin (ANCEF) 2,000 mg/20 mL in sterile water (premix) 2,000 mg 2,000 mg intravenous Q8H [facility] escitalopram (LEXAPRO) tablet 10 mg 10 mg oral Daily furosemide (LASIX) tablet 40 mg 40 mg oral Daily insulin glargine (LANTUS, SEMGLEE) 100 unit/mL injection 26 Units 26 Units subcutaneous QAM insulin lispro (HumaLOG, ADMELOG) 100 unit/mL injection 0-10 Units 0-10 Units subcutaneous TID withmeals insulin lispro (HumaLOG, ADMELOG) 100 unit/mL injection 0-5 Units 0-5 Units subcutaneous Nightly insulin lispro (HumaLOG, ADMELOG) 100 unit/mL injection 11 Units 11 Units subcutaneous TID with meals levothyroxine (SYNTHROID) tablet 75 mcg 75 mcg oral Daily - 0600 lidocaine (ASPERCREME) 4 % patch 1 patch 1 patch transdermal Q24H magnesium oxide (MAG-OX) tablet 400 mg 400 mg oral Daily metoprolol XL (TOPROL-XL) extended release tablet 75 mg 75 mg oral Daily mirabegron ER (MYRBETRIQ) extended release tablet 25 mg 25 mg oral Daily nortriptyline (PAMELOR) capsule 10 mg 10 mg oral Nightly pantoprazole DR (PROTONIX) extended release tablet 20 mg 20 mg oral Daily sacubitriL-valsartan (ENTRESTO) 24-26 mg tablet 1 tablet 1 tablet oral BID senna-docusate (PERICOLACE) 8.6-50 mg per tablet 1 tablet 1 tablet oral BID sodium chloride 0.9% flush 0.5-20 mL 0.5-20 mL intra-catheter Q8H GALINA sodium chloride 0.9% flush 5-10 mL 5-10 mL intra-catheter Q12H [facility] spironolactone (ALDACTONE) split tablet 12.5 mg 12.5 mg oral Daily Continuous Meds: Current Facility-Administered Medications Medication Dose Route Frequency Last Admin PRN Meds: PRN Medications Medication Dose Route Frequency Last Admin acetaminophen (TYLENOL) tablet 650 mg 650 mg oral Q4H PRN 650 mg at 07/23/24 1133 Carrier Fluids for Secondary Infusion - 0.9% Sodium Chloride 30 mL intravenous PRN cyclobenzaprine (FLEXERIL) tablet 5 mg 5 mg oral TID PRN 5 mg at 07/23/24 1133 dextrose gel in packet 15 g 15 g oral Q15 Min PRN Or dextrose (D10W) 10% bolus 250 mL 250 mL intravenous Q15 Min PRN glucagon injection 1 mg 1 mg intramuscular Q30 Min PRN 1 mg at 07/21/24 1420 lidocaine (LMX) 4 % cream 1 Application 1 Application topical QID PRN ondansetron ODT (ZOFRAN-ODT) disintegrating tablet 4 mg 4 mg oral Q6H PRN Or ondansetron (ZOFRAN) injection 4 mg 4 mg intravenous Q6H PRN 4 mg at 07/13/24 1728 polyethylene glycol (MIRALAX) packet 17 g 17 g oral Daily PRN 17 g at 07/21/24 1422 ramelteon (ROZEREM) tablet 8 mg 8 mg oral Nightly PRN 8 mg at 07/14/24 2134 sodium chloride 0.9% flush 0.5-20 mL 0.5-20 mL intra-catheter PRN sodium chloride 0.9% flush 5-20 mL 5-20 mL intra-catheter PRN Physical Exam Physical Exam: Gen: No apparent distress. Resting comfortably. Cooperative. HEENT: No conjunctival pallor or injection, no icterus. No nasal discharge. Moist mucus membranes. Cardiac: Irregularly irregular rate and rhythm, normal S1/S2. No murmurs appreciated Pulm: Clear to auscultation bilaterally without crackles, wheezes, rhonchi Abdomen: Soft. No tenderness or distension. Extremity: Warm. No edema. No clubbing or cyanosis. Neuro: Alert and orientedx3. No focal deficits. Voiced understanding on reason for being in hospital, benefits from simple explanations Skin: No lesions, erythema, or skin changes. Psych: Mood appropriate. Appropriate insight. Laboratory Results Recent Results (from the past 24 hour(s)) POCT glucose Collection Time: 07/24/24 11:15 AM Result Value Ref Range Glucose, POC 329 (H) 70 - 199 mg/dL Glucose comment 1 Glu2: RN/MD Notified CBC without differential Collection Time: 07/24/24 10:31 PM Result Value Ref Range WBC 6.7 3.8 - 9.9 K/cumm Hgb 12.1 11.9 - 15.5 g/dL Hct 36.5 35.6 - 45.5 % Plt 333 150 - 400 K/cumm MPV 9.3 9.1 - 12.3 fL RBC 3.79 (L) 3.90 - 5.20 M/cumm MCV 96.3 81.3 - 96.4 fL MCH 31.9 27.1 - 33.3 pg MCHC 33.2 32.3 - 35.7 g/dL RDW CV 13.0 11.1 - 14.9 % RDW SD 46.4 35.7 - 48.1 fL NRBC abs 0.00 0.00 - 0.01 K/cumm Comprehensive metabolic panel Collection Time: 10/15/24 10:31 PM Result Value Ref Range Sodium 135 135 - 145 mmol/L Potassium, pl 4.3 3.3 - 4.9 mmol/L Chloride 98 97 - 110 mmol/L CO2 27 22 - 32 mmol/L Anion gap 10 2 - 15 mmol/L BUN 22 6 - 25 mg/dL Creatinine 0.84 0.60 - 1.10 mg/dL Glucose 297 (H) 70 - 199 mg/dL Calcium 9.6 8.5 - 10.3 mg/dL Bilirubin, total 0.2 0.1 - 1.2 mg/dL Protein, pl 7.8 6.5 - 8.5 g/dL Albumin 3.6 3.5 - 5.0 g/dL Alk phos 175 (H) 40 - 130 Units/L ALT 9 7 - 45 Units/L AST 27 10 - 45 Units/L Magnesium Collection Time: 07/24/24 10:31 PM Result Value Ref Range Magnesium 2.0 1.4 - 2.5 mg/dL Protime-INR Collection Time: 07/24/24 10:31 PM Result Value Ref Range PT 13.2 (H) 9.7 - 13.0 sec INR 1.22 (H) 0.90 - 1.20 eGFR Collection Time: 07/24/24 10:31 PM Result Value Ref Range eGFR 79 >=60 mL/min/1.73 m2 POCT glucose Collection Time: 07/25/24 8:25 AM Result Value Ref Range Glucose, POC 215 (H) 70 - 199 mg/dL Imaging Results PET/CT FDG Skull to Thigh Narrative: EXAMINATION: TUMOR FDG-PET/CT IMAGING DATE OF STUDY: 07/23/2024 SCANNER: [facility] PET Vision (NV1). This is a high-resolution scanner, which [...] obtained. The study was interpreted on the Countdown workstation. The mean liver SUV (reported for senior data quality analyst purposes) is 3.0. For evaluation of sarcoidosis, [...] the PET/CT were reviewed with Dr. Walker. Impression: 1. No FDG PET/CT evidence of osteomyelitis or any other site of primary infectious process. 2. No FDG PET CT evidence of active inflammatory process in the lungs are myocardium. Dictated by: Truong Jeffers MD The radiology attending physician has personally reviewed this study, and had reviewed and/or edited this written report and agrees with it. Electronically signed by: Jason Estevez MD ASSESSMENT & PLAN Lei Rodriguez is a 63 y.o. female with a PMHx significant for MSSA bacteremia (05/2024), A-fib,HFrEF (EF 30%), T2DM, GERD, Intellectual disability, OAB, JOSE, and hypothyroidism who presented to OSH 06/28 for back pain. Found to have + blood cx for staph aureus and CT c/f OM. Tx to [facility] for further evaluation and treatment. 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 #MSSA TV Endocarditis, recurrent, secondary to infected ICD lead #History of Vfib/VT Recent admit 05/2024 for MSSA bacteremia. Per outside hospital, TTE and GT no vegetations on valvesor on ICD wires. Treated with 4 weeks of IV Ancef ending 06/21. Review of ID notes from OSH show blood cultures remained clear on 06/13. 07/01 blood cx were drawn x2, 1/2 then second set 2/2 MSSA. Vanc+ Ancef started, Vanc d/c 07/03. 07/02 cx NGTD. Concern for lack of source control given recurrence, with potential sources including ICD, heart valves, osteomyelitis of spine given patient's back pain. Ongoing assessment throughout admission. BCx on admission 07/08/24 no growth, HIV NR. PET 07/23/24 no evidence of infection in spine. TTE 07/07/24 demonstrated echodensity on V lead of ICD, GT demonstrating vegetation on TV without vegetation on ICD, as well as thrombus in LA. ICD was interrogated showing shocks on 06/10/24 for ventricular arrhythmia, not pacer dependent. ICD removed 07/13/24.Per multidisciplinary discussion with CTS, valvular, not a candidate for angiovac or TV surgery. Retained wire in PA represents persistent potential source. MRI not safe given retained wire, and wirelikely to be lifetime source for recurrent infection as removal would be extremely high risk per CTS and vascular surgery. Current Plan: - Cardiac surgery, EP, ID consulted, appreciate ongoing recommendations - continue Ancef 2g Q8H x 6 weeks (07/13-08/23) then lifetime cefadroxil 1 g BID - continuous tele 07/25 - Plan for GT vs Tuesday to re-evaluate TV vegetation, with subsequent discussion regarding ICD placement - Vale placement today #MARK, resolved Cr elevated to 1.66 in PM 07/18 labs. Urine lytes FeUrea consistent with pre- renal, suspect most likely in setting of transient hypotension during RVR 07/18 afternoon. UA not consistent with UTI, Cr improved to baseline since 07/21 #Hx of intellectual disability/developmental delay #Agitation #Concern for suicidality Sister Dilia currently takes care of patient, other sister Peg assists. Both discuss pt medical decisions together. Patient is not consentable - As in interval history 07/18, patient expressed sentiments of preferring to over remaining in hospital. Per assessment by primary team, not felt to be actively suicidal at this time, deferred sitter - Psychiatry consulted, appreciate further recommendations. Haldol 2 mg PRN for agitation, avoid further benzos due to concern of delirium #HFrEF - compensated EF of 30% on 05/2024 echocardiogram, mild-mod MR, RVSP 42 mild-mod TR. On chart review, patient hadHFrEF dating back to at least 2016, though etiology of this not clearly established. Current GDMT includes metoprolol, Entresto 24-26 BID, furosemide 40 daily - Not on Farxiga due to recurrent UTI - Have not increased Entresto further as many BPs in 100s systolic throughout admission - Initiated spironolactone 12.5 mg 07/09 - CTA coronary obtained 07/16 without evidence of CAD (calcium score 0) - Cardiac sarcoid protocol 07/23/24 without active inflammatory process in the myocardium #Persistent atrial fibrillation #MAULIK Thrombus In AFib on admission. Previously on Tikosyn, however, taken off of Tikosyn after admission for MSSA, and was continued on Xarelto for AC and Coreg for rate control in May. GT in May 2024 performed to eval for endocarditis showed LA thrombus; had been on Xarelto at the time per chart review. At OSH just prior to this admission, patient had RVR and received dual tim blockade with dilt and metoprolol, stopped dilt 2/2 reduced EF and continued on metoprolol, increased to 75 daily after RVRon 07/18 in setting of acute agitation. Currently rate controlled. - anticoagulation: heparin gtt -> Eliquis 07/14 - metoprolol succinate 75 #T2DM Home regimen: glargine 18u; Lispro 10 TID + SSI. A1c here 7.7 on 07/07/24. - Currently on Lantus 26 and mealtime 9 TID + HDSSI given hyperglycemia - poorly controlled 07/21-14 given hypoglycemia on 07/21, poor PO intake in setting of sarcoid dieton 07/22 - POC glucose TIDAC #Anemia: Hgb 10.8 on arrival. Bl: 11-12. MCV elevated. B12 > 1000 at OSH, Folate wnl. CTM #Recurrent UTI #OAB Per family, has been treated multiple times recently for UTIs. Her symptoms are not urinary in nature, her symptoms typically are becoming delirious and belligerent. UA at outside hospital with 0-5 WBC, 3+ nitrate. Cx was performed which showed >100,000 colonies E coli and per documentation completed course of ceftriaxone for UTI. - Given ongoing concerns with family surrounding possible UTI, UA 07/19 negative - Home Vibegron 75 --> change to Mirabegron for formulary #Hypothyroidism: Synthroid 75mcg, TSH 2.8 #Depression: Continue Lexapro 10, nortriptyline 10 #GERD: Pantoprazole 20 #Constipation: Senna-Docusate BID #JOSE: ordered CPAP, pt reportedly intermittently compliant at home Dispo Planning: - Vale placement today with IR - GT Tuesday to re-evaluate valve, determine ICD - Ongoing discussions regarding safety of home Abx following ICD replacement, pending patient cooperation with line/plan, family comfort with home administration, and discussions with ID Code Status: Full Code Disposition: pending Best contact: Primary Emergency Contact: Dilia Moise Diet: Adult Diet Restricted; 2 GM Sodium; Consistent Carbohydrate; Send on Disposables VTE Prophylaxis: Eliquis PT: PT Recommendation/Plan: Jail Facility OT:OT Recommendation: Jail Facility Valentina Brown MD PGY-1 Internal Medicine Cosigned by Suman Chávez MD at 07/25/2024 4:31 PM CDT Associated attestation - Suman Chávez MD - 07/25/2024 4:31 PM CDT Attending Documentation I have seen and examined the patient on 07/25/24. I agree with the findings and plan of care as documented in the resident's/fellow's note.Patient with HFrEF and chronic AFib, Endocarditis of TV and ICD which was extracted. Will continue AB. Plan for GT this week and EP consult to consider re-implantation of ICD before discharge. Supplementary Attestation Today, I am treating the patient for ICED infection, TV endocarditis which is in moderate exacerbation, progression, or experiencing treatment side effects as evidenced by clinical and imaging, as described in the note. Suman Chávez MD 07/25/2024 4:27 PM * Valentina Brown MD - 07/24/2024 2:45 PM CDT Medicine Daily Progress Note Patient: Lei Rodriguez : 1960 (63 y.o.) Date of Admission: 07/07/2024 Date of Service: 07/24/24 SUBJECTIVE Interval Events: - No acute events overnight - PET yesterday demonstrated no evidence of osteomyelitis in spine or inflammatory disease in myocardium - Patient denies acute concerns with breathing, dizziness, chest pain - Rate controlled afib on tele - Labs last night within normal limits - Per discussion with EP, recommend GT on Tuesday to reassess TV to determine decision regarding ICD implantation now vs later. Recommend inpatient antibiotics with telemetry over life vest until ICDreplaced - PICC attempted yesterday, unsuccessful. VIR consult placed today - Home nursing would not be able to assist with home antibiotics, would need family to administer q8h Plan for Today: - Ongoing discussions with ID regarding feasibility of home antibiotics - PICC vs Vale placement with IR pending OBJECTIVE Vitals Most Recent: Vitals: 07/24/24 0805 BP: 109/62 Pulse: 86 Resp: 20 Temp: 36.6 ??C (97.9 ??F) SpO2: 95% 24 Hour Min/Max: Temp Min: 36.6 ??C (97.9 ??F) Max: 36.7 ??C (98.1 ??F) Pulse Min: 80 Max: 93 BP Min: 106/59 Max: 123/73 Resp Min: 20 Max: 20 SpO2 Min: 95 % Max: 98 % Intake/Output No intake or output data in the 24 hours ending 07/24/24 1445 Current Medications Scheduled Meds: Scheduled Medications Medication Dose Route Frequency apixaban (ELIQUIS) tablet 5 mg 5 mg oral Q12H [facility] ceFAZolin (ANCEF) 2,000 mg/20 mL in sterile water (premix) 2,000 mg 2,000 mg intravenous Q8H [facility] escitalopram (LEXAPRO) tablet 10 mg 10 mg oral Daily furosemide (LASIX) tablet 40 mg 40 mg oral Daily insulin glargine (LANTUS, SEMGLEE) 100 unit/mL injection 26 Units 26 Units subcutaneous QAM insulin lispro (HumaLOG, ADMELOG) 100 unit/mL injection 0-10 Units 0-10 Units subcutaneous TID withmeals insulin lispro (HumaLOG, ADMELOG) 100 unit/mL injection 0-5 Units 0-5 Units subcutaneous Nightly insulin lispro (HumaLOG, ADMELOG) 100 unit/mL injection 11 Units 11 Units subcutaneous TID with meals levothyroxine (SYNTHROID) tablet 75 mcg 75 mcg oral Daily - 0600 lidocaine (ASPERCREME) 4 % patch 1 patch 1 patch transdermal Q24H magnesium oxide (MAG-OX) tablet 400 mg 400 mg oral Daily metoprolol XL (TOPROL-XL) extended release tablet 75 mg 75 mg oral Daily mirabegron ER (MYRBETRIQ) extended release tablet 25 mg 25 mg oral Daily nortriptyline (PAMELOR) capsule 10 mg 10 mg oral Nightly pantoprazole DR (PROTONIX) extended release tablet 20 mg 20 mg oral Daily sacubitriL-valsartan (ENTRESTO) 24-26 mg tablet 1 tablet 1 tablet oral BID senna-docusate (PERICOLACE) 8.6-50 mg per tablet 1 tablet 1 tablet oral BID sodium chloride 0.9% flush 0.5-20 mL 0.5-20 mL intra-catheter Q8H GALINA sodium chloride 0.9% flush 5-10 mL 5-10 mL intra-catheter Q12H [facility] spironolactone (ALDACTONE) split tablet 12.5 mg 12.5 mg oral Daily Continuous Meds: Current Facility-Administered Medications Medication Dose Route Frequency Last Admin PRN Meds: PRN Medications Medication Dose Route Frequency Last Admin acetaminophen (TYLENOL) tablet 650 mg 650 mg oral Q4H PRN 650 mg at 07/23/24 1133 Carrier Fluids for Secondary Infusion - 0.9% Sodium Chloride 30 mL intravenous PRN cyclobenzaprine (FLEXERIL) tablet 5 mg 5 mg oral TID PRN 5 mg at 07/23/24 1133 dextrose gel in packet 15 g 15 g oral Q15 Min PRN Or dextrose (D10W) 10% bolus 250 mL 250 mL intravenous Q15 Min PRN glucagon injection 1 mg 1 mg intramuscular Q30 Min PRN 1 mg at 07/21/24 1420 lidocaine (LMX) 4 % cream 1 Application 1 Application topical QID PRN ondansetron ODT (ZOFRAN-ODT) disintegrating tablet 4 mg 4 mg oral Q6H PRN Or ondansetron (ZOFRAN) injection 4 mg 4 mg intravenous Q6H PRN 4 mg at 07/13/24 1728 polyethylene glycol (MIRALAX) packet 17 g 17 g oral Daily PRN 17 g at 07/21/24 1422 ramelteon (ROZEREM) tablet 8 mg 8 mg oral Nightly PRN 8 mg at 07/14/24 2134 sodium chloride 0.9% flush 0.5-20 mL 0.5-20 mL intra-catheter PRN sodium chloride 0.9% flush 5-20 mL 5-20 mL intra-catheter PRN Physical Exam Physical Exam: Gen: No apparent distress. Resting comfortably. Cooperative. HEENT: No conjunctival pallor or injection, no icterus. No nasal discharge. Moist mucus membranes. Cardiac: Irregularly irregular rate and rhythm, normal S1/S2. No murmurs appreciated Pulm: Clear to auscultation bilaterally without crackles, wheezes, rhonchi Abdomen: Soft. No tenderness or distension. Extremity: Warm. No edema. No clubbing or cyanosis. Neuro: Alert and orientedx3. No focal deficits. Voiced understanding on reason for being in hospital, benefits from simple explanations Skin: No lesions, erythema, or skin changes. Psych: Mood appropriate. Appropriate insight. Laboratory Results Recent Results (from the past 24 hour(s)) POCT glucose Collection Time: 07/23/24 5:45 PM Result Value Ref Range Glucose, POC 251 (H) 70 - 199 mg/dL POCT glucose Collection Time: 07/23/24 8:24 PM Result Value Ref Range Glucose, POC 248 (H) 70 - 199 mg/dL CBC without differential Collection Time: 07/23/24 8:40 PM Result Value Ref Range WBC 5.4 3.8 - 9.9 K/cumm Hgb 11.6 (L) 11.9 - 15.5 g/dL Hct 36.1 35.6 - 45.5 % Plt 319 150 - 400 K/cumm MPV 9.5 9.1 - 12.3 fL RBC 3.63 (L) 3.90 - 5.20 M/cumm MCV 99.4 (H) 81.3 - 96.4 fL MCH 32.0 27.1 - 33.3 pg MCHC 32.1 (L) 32.3 - 35.7 g/dL RDW CV 13.2 11.1 - 14.9 % RDW SD 48.3 (H) 35.7 - 48.1 fL NRBC abs 0.00 0.00 - 0.01 K/cumm Comprehensive metabolic panel Collection Time: 07/23/24 8:40 PM Result Value Ref Range Sodium 136 135 - 145 mmol/L Potassium, pl 4.2 3.3 - 4.9 mmol/L Chloride 98 97 - 110 mmol/L CO2 27 22 - 32 mmol/L Anion gap 11 2 - 15 mmol/L BUN 25 6 - 25 mg/dL Creatinine 1.05 0.60 - 1.10 mg/dL Glucose 218 (H) 70 - 199 mg/dL Calcium 9.0 8.5 - 10.3 mg/dL Bilirubin, total 0.2 0.1 - 1.2 mg/dL Protein, pl 7.4 6.5 - 8.5 g/dL Albumin 3.3 (L) 3.5 - 5.0 g/dL Alk phos 151 (H) 40 - 130 Units/L ALT 12 7 - 45 Units/L AST 33 10 - 45 Units/L Magnesium Collection Time: 07/23/24 8:40 PM Result Value Ref Range Magnesium 1.9 1.4 - 2.5 mg/dL eGFR Collection Time: 07/23/24 8:40 PM Result Value Ref Range eGFR 60 >=60 mL/min/1.73 m2 POCT glucose Collection Time: 07/24/24 8:30 AM Result Value Ref Range Glucose, POC 220 (H) 70 - 199 mg/dL POCT glucose Collection Time: 07/24/24 8:54 AM Result Value Ref Range Glucose, POC 206 (H) 70 - 199 mg/dL POCT glucose Collection Time: 07/24/24 11:15 AM Result Value Ref Range Glucose, POC 329 (H) 70 - 199 mg/dL Glucose comment 1 Glu2: RN/MD Notified Imaging Results PET/CT FDG Skull to Thigh Narrative: EXAMINATION: TUMOR FDG-PET/CT IMAGING DATE OF STUDY: 07/23/2024 SCANNER: [facility] [employer] (NV1). This is a high-resolution scanner, which [...] obtained. The study was interpreted on the [employer] workstation. The mean liver SUV (reported for senior data quality analyst purposes) is 3.0. For evaluation of sarcoidosis, [...] the PET/CT were reviewed with Dr. Walker. Impression: 1. No FDG PET/CT evidence of osteomyelitis or any other site of primary infectious process. 2. No FDG PET CT evidence of active inflammatory process in the lungs are myocardium. Dictated by: Truong Jeffers MD The radiology attending physician has personally reviewed this study, and had reviewed and/or edited this written report and agrees with it. Electronically signed by: Jason Estevez MD ASSESSMENT & PLAN Lei Rodriguez is a 63 y.o. female with a PMHx significant for MSSA bacteremia (05/2024), A-fib,HFrEF (EF 30%), T2DM, GERD, Intellectual disability, OAB, JOSE, and hypothyroidism who presented to OSH 06/28 for back pain. Found to have + blood cx for staph aureus and CT c/f OM. Tx to [facility] for further evaluation and treatment. 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 #MSSA TV Endocarditis, recurrent, secondary to infected ICD lead #History of Vfib/VT Recent admit 05/2024 for MSSA bacteremia. Per outside hospital, TTE and GT no vegetations on valvesor on ICD wires. Treated with 4 weeks of IV Ancef ending 06/21. Review of ID notes from OSH show blood cultures remained clear on 06/13. 07/01 blood cx were drawn x2, 10/11 then second set 11/11 MSSA. Vanc+ Ancef started, Vanc d/c 07/03. 07/02 cx NGTD. Concern for lack of source control given recurrence, with potential sources including ICD, heart valves, osteomyelitis of spine given patient's back pain. Ongoing assessment throughout admission. BCx on admission 07/08/24 no growth, HIV NR. PET 07/23/24 no evidence of infection in spine. TTE 07/07/24 demonstrated echodensity on V lead of ICD, GT demonstrating vegetation on TV without vegetation on ICD, as well as thrombus in LA. ICD was interrogated showing shocks on 06/10/24 for ventricular arrhythmia, not pacer dependent. ICD removed 07/13/24.Per multidisciplinary discussion with CTS, valvular, not a candidate for angiovac or TV surgery. Retained wire in PA represents persistent potential source. MRI not safe given retained wire, and wirelikely to be lifetime source for recurrent infection as removal would be extremely high risk per CTS and vascular surgery. Current Plan: - Cardiac surgery, EP, ID consulted, appreciate ongoing recommendations - continue Ancef 2g Q8H x 6 weeks (07/13-08/23) then lifetime cefadroxil 1 g BID - FDG PET spine without evidence of osteomyelitis or any other site of primary infectious process 07/23/24 - continuous tele 07/24 - Plan for GT Tuesday to re-evaluate TV vegetation, with subsequent discussion regarding ICD placement - Pursuing vascular access, discussions with family regarding feasibility of home antibiotics #MARK, resolved Cr elevated to 1.66 in PM 07/18 labs. Urine lytes FeUrea consistent with pre- renal, suspect most likely in setting of transient hypotension during RVR 07/18 afternoon. UA not consistent with UTI, Cr improved to baseline 0.94 on 07/21, 1.05 on 07/23 #Hx of intellectual disability/developmental delay #Agitation #Concern for suicidality Sister Dilia currently takes care of patient, other sister Peg assists. Both discuss pt medical decisions together. Patient is not consentable - As in interval history 07/18, patient expressed sentiments of preferring to over remaining in hospital. Per assessment by primary team, not felt to be actively suicidal at this time, deferred sitter - Psychiatry consulted, appreciate further recommendations. Haldol 2 mg PRN for agitation, avoid further benzos due to concern of delirium #HFrEF - compensated EF of 30% on 05/2024 echocardiogram, mild-mod MR, RVSP 42 mild-mod TR. On chart review, patient hadHFrEF dating back to at least 2016, though etiology of this not clearly established. Current GDMT includes metoprolol, Entresto 24-26 BID, furosemide 40 daily - Not on Farxiga due to recurrent UTI - Initiated spironolactone 12.5 mg 07/09 - CTA coronary obtained 07/16 without evidence of CAD (calcium score 0) - Cardiac sarcoid protocol 07/23/24 without active inflammatory process in the myocardium #Persistent atrial fibrillation #MAULIK Thrombus In AFib on admission. Previously on Tikosyn, however, taken off of Tikosyn after admission for MSSA, and was continued on Xarelto for AC and Coreg for rate control in May. GT in May 2024 performed to eval for endocarditis showed LA thrombus; had been on Xarelto at the time per chart review. At OSH just prior to this admission, patient had RVR and received dual tim blockade with dilt and metoprolol, stopped dilt 2/2 reduced EF and continued on metoprolol, increased to 75 daily after RVRon 07/18 in setting of acute agitation. Currently rate controlled. - anticoagulation: heparin gtt -> Eliquis 07/14 - metoprolol succinate 75 #T2DM Home regimen: glargine 18u; Lispro 10 TID + SSI. A1c here 7.7 on 07/07/24. - Currently on Lantus 26 and mealtime 9 TID + HDSSI given hyperglycemia - poorly controlled 07/21-14 given hypoglycemia on 07/21, poor PO intake in setting of sarcoid dieton 07/22 - POC glucose TIDAC #Anemia: Hgb 10.8 on arrival. Bl: 11-12. MCV elevated. B12 > 1000 at OSH, Folate wnl. CTM #Recurrent UTI #OAB Per family, has been treated multiple times recently for UTIs. Her symptoms are not urinary in nature, her symptoms typically are becoming delirious and belligerent. UA at outside hospital with 0-5 WBC, 3+ nitrate. Cx was performed which showed >100,000 colonies E coli and per documentation completed course of ceftriaxone for UTI. - Given ongoing concerns with family surrounding possible UTI, UA 07/19 negative - Home Vibegron 75 --> change to Mirabegron for formulary #Hypothyroidism: Synthroid 75mcg, TSH 2.8 #Depression: Continue Lexapro 10, nortriptyline 10 #GERD: Pantoprazole 20 #Constipation: Senna-Docusate BID #JOSE: ordered CPAP, pt reportedly intermittently compliant at home Dispo Planning: - will need to confirm timing for ICD re implantation with EP/ID post ICD removal on 07/13 - Will need to stop Eliquis/transition to heparin in advance of procedural intervention. Will need to re-establish access, location for this (SNF vs home), and plan for monitoring on antibiotics Code Status: Full Code Disposition: pending Best contact: Primary Emergency Contact: Dilia Moise Diet: Adult Diet Restricted; 2 GM Sodium; Consistent Carbohydrate; Send on Disposables VTE Prophylaxis: Eliquis PT: PT Recommendation/Plan: Jail Facility OT:OT Recommendation: Jail Facility Valentina Brown MD PGY-1 Internal Medicine Cosigned by Suman Chávez MD at 07/24/2024 6:30 PM CDT Associated attestation - Suman Chávez MD - 07/24/2024 6:30 PM CDT Attending Documentation I have seen and examined the patient on 07/24/24. I agree with the findings and plan of care as documented in the resident's/fellow's note. 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 Suman Chávez MD 07/24/2024 6:26 PM * Adal Manuel OT - 07/24/2024 10:25 AM CDT Occupational Therapy Progress Note NOTE: This is a summary note of the vaz components of the treatment session. For full details, review chart for all flowsheets documented on by this occupational therapy clinician on this date. Vitalsigns documented in vital signs flowsheet. Care plan progress documented in Care Plan Activity. For questions, please review the treatment team and contact the occupational therapist currently assigned to this patient. If an occupational therapist is not assigned to this patient, please call [phone]. 07/24/24 1025 General Session Type Treatment OT Received On 07/24/24 Safe Environment Arm band checked;Patient found in supine;Gait belt utilized for all out of bed mobility Subjective Agreeable to Therapy Family/Caregiver Present No Current Functional Status OT Functional Mobility Functional mobility observed with w/w with CGA for safety and balance Precautions Precautions Fall risk Weight Bearing Restrictions No Precaution Handout Issued No Precaution Comments Verbally reviewed precautions with patient prior to mobility Pain Assessment Pain Assessment 0-10 Pain Score 7 Pain Location Back (Lumbar) Pain Orientation Generalized Pain Interventions Repositioned;Distraction;Therapeutic presence;Therapy;Therapeutic touch Balance Balance Yes Static Sitting Balance Static Sitting-Balance Support No upper extremity supported;Feet supported Static Sitting-Sitting Surface Bed Static Sitting-Level of Assistance Distant supervision Static Sitting-Comment/# of Minutes Ensure safety and balance Dynamic Sitting Balance Dynamic Sitting-Balance Support No upper extremity supported;Feet supported Dynamic Sitting-Balance Lateral lean;Forward lean;Reaching for objects Dynamic Sitting-Sitting Surface Bed Dynamic Sitting-Level of Assistance Close supervision Dynamic Sitting-Comments Ensure safety and balance Static Standing Balance Static Standing-Balance Support Bilateral upper extremity supported (on w/w) Static Standing-Standing Surface Floor Static Standing-Level of Assistance Close supervision Static Standing-Comment/# of Minutes Ensure safety and balance Dynamic Standing Balance Dynamic Standing-Balance Support No upper extremity supported Dynamic Standing-Balance Lateral lean;Forward lean;Reaching for objects Dynamic Standing-Standing Surface Floor Dynamic Standing-Level of Assistance Contact guard Dynamic Standing-Comments Ensure safety and balance ADL ADLS (WDL) X Grooming Grooming: Where assessed Standing at sink Grooming: Level of assistance Standby Assist Grooming: Assistance with Balance;Safety LE Dressing LE Dressing: Where assessed Edge of bed;Sitting LE Dressing: Level of assistance Minimum Assist LE Dressing: Assistance with Pull up over hips;Balance;Safety Bed Mobility Bed Mobility Yes Bed Mobility 1 Bed Mobility From 1 Supine Bed Mobility Type 1 To Bed Mobility to 1 Edge of bed Level of Assistance 1 Standby Assist Bed Mobility Comments 1 Ensure safety and balance Transfers Transfer Yes Transfer 1 Transfer From 1 Sit Transfer Type 1 To and from Transfer to 1 Stand Technique 1 Sit to stand;Stand to sit Transfer Device 1 Wheeled walker Transfer Level of Assistance 1 Contact Guard Assist Trials/Comments 1 Ensure safety and balance Toilet Transfers Toilet Transfer From Bed Toilet Transfer Type To Toilet Transfer to (Chair Sim) Toilet Transfer Technique Ambulating Toilet Transfer: Equipment Wheeled walker Toilet Transfers Contact guard Toilet Transfers Comments Ensure safety and balance Cognition Arousal/Alertness Alert;Appropriate responses to stimuli Attention Span Appears intact Current communication Appears Intact Orientation Oriented X4 (person, place, time, situation) Following Commands Follows all commands and directions without difficulty Safety Judgment Decreased awareness of need for assistance Awareness of Errors Assistance required to identify errors made Insight Decreased awareness of deficits Problem Solving Assistance required to identify errors made Compliance/Behavior Easy to engage Perseveration Not present Other Comments Comments Patient requires encouragement to particiapte in therapy this date. Daily Activity - 6 Clicks Putting on and taking off regular lower body clothing 3 Bathing 3 Toileting 3 Putting on and taking off upper body clothing 3 Personal Grooming 3 Eating Meals 4 Total Score (range 6-24) 19 Score Interpretation 40.22 Safe Environment End of Therapy Session Safe Environment End of Therapy Session Patient left in recliner;Chair alarm in place and activated;Call light within reach;Overbed table within reach Assessment Problem List Decreased cognition;Decreased endurance;Decreased balance;Decreased functional mobility;Decreased ADL independence;Decreased IADL independence;Pain Barriers to Discharge Current Mobility Status;Current ADL Status;Cognition Barrier Comments fall risk Plan Plan Continue with current plan;If this is the last note, consider this the discharge summary Recommendation/Plan OT Recommendation Jail Facility Patient at high risk for Falls;Readmission;Injury due to decreased ability to care for self;Injury due to reduced functional status;Injury due to balance deficits;Injury at home as patient has not returned to prior level of function Recommend SNF due to Unable to safely care for self in the home;Risk of injury at home;Skilled therapy needed to address care for self in the home;Skilled therapy needed to address functional deficits;Skilled therapy needed for patient to return to prior level of independence OT Frequency during current admission 2-3x/wk Treatment/Interventions during current admission ADL/IADL retraining;Balance Training;Bed mobility;Compensatory technique education;Endurance training;Functional activity;Functional mobility training;Functional transfer training;Strengthening;Therapeutic activity;Therapeutic exercise;Transfer traini ng Progress during current admission Progressing toward goals OT - Next Appointment 07/26/24 Multi-Disciplinary Problems (from Occupational Therapy) Active Problems Problem: Dressings Lower Extremities Start Date: 07/24/24 Goal Start Date Expected End Date End Date STG - Patient to complete lower body dressing 07/24/24 07/31/24 -- Goal Details: With Mod I Problem: Grooming Start Date: 07/24/24 Goal Start Date Expected End Date End Date STG - Patient will complete grooming 07/24/24 07/31/24 -- Goal Details: Standing at sink with Mod I Problem: Toileting Start Date: 07/24/24 Goal Start Date Expected End Date End Date STG - Patient will complete toileting tasks with 07/24/24 07/31/24 -- Goal Details: Mod I at toilet in bathroom Problem: Transfers Start Date: 07/24/24 Goal Start Date Expected End Date End Date STG - Patient will perform toilet transfer 07/24/24 07/31/24 -- Goal Details: To toilet in bathroom with Mod I Problem: OT Misc Start Date: 07/24/24 Goal Start Date Expected End Date End Date OT LTG - Misc 1 07/24/24 08/07/24 -- Goal Details: Patient will perform ADL tasks with modified independence * Irma May DPT - 07/24/2024 10:03 AM CDT Physical Therapy 07/24/24 1003 General PT Missed Visit Reason Patient declined ( I don't want to walk, my side hurts ) Recommendation/Plan PT Frequency during current admission 3-5x/wk PT - Next Appointment 07/25/24 * Angel Vick - 07/23/2024 3:52 PM CDT Spiritual Care Note Chaplain Noah Vick [phone] 07/23/24 1530 Time Spent Start Time 1515 Stop Time 1525 Time Calculation (min) 10 min Patient Spiritual Assessment Spirituality Assessed Focus of Care Clinical Encounter Type Visited With Family Response Type Routine visit Routine Visit Introduction Reason for visit Support;Anxiety Outcomes and Progress Preserve dignity and respect Achieved Demonstrating care and respect Achieved Establish rapport and connectedness Partially Achieved Sense of peace Partially Achieved Lessen someone's feelings of lonliness Partially Achieved Interventions Interventions Active listening;Explore maira and values;Offer emotional support;Offer spiritual/gnosticism support * Valentina Brown MD - 07/23/2024 3:22 PM CDT Medicine Daily Progress Note Patient: Lei Rodriguez : 1960 (63 y.o.) Date of Admission: 07/07/2024 Date of Service: 07/23/24 SUBJECTIVE Interval Events: - No acute events overnight - Patient underwent PET today which showed no evidence of osteomyelitis in spine, no evidence of inflammatory disease in myocardium - Reports no concerns with breathing, no dizziness, chest pain - rate controlled afib on telemetry - Refused labs last night - Discussed with patient and sister importance of generally limiting salt intake in diet and need for 6 weeks antibiotics for infection. Called back to room later, patient distraught over diet, begging to go home Plan for Today: - Ongoing discussions with EP and ID teams regarding timeline for ICD replacement, feasibility of home life vest - Vascular access consult for PICC for outpatient antibiotics OBJECTIVE Vitals Most Recent: Vitals: 07/23/24 0810 BP: 108/52 Pulse: Resp: Temp: SpO2: 24 Hour Min/Max: Temp Min: 36.4 ??C (97.6 ??F) Max: 36.6 ??C (97.9 ??F) Pulse Min: 88 Max: 110 BP Min: 104/33 Max: 156/95 Resp Min: 18 Max: 22 SpO2 Min: 94 % Max: 99 % Intake/Output No intake or output data in the 24 hours ending 07/23/24 1522 Current Medications Scheduled Meds: Scheduled Medications Medication Dose Route Frequency apixaban (ELIQUIS) tablet 5 mg 5 mg oral Q12H GALINA ceFAZolin (ANCEF) 2,000 mg/20 mL in sterile water (premix) 2,000 mg 2,000 mg intravenous Q8H GALINA escitalopram (LEXAPRO) tablet 10 mg 10 mg oral Daily furosemide (LASIX) tablet 40 mg 40 mg oral Daily insulin glargine (LANTUS, SEMGLEE) 100 unit/mL injection 26 Units 26 Units subcutaneous QAM insulin lispro (HumaLOG, ADMELOG) 100 unit/mL injection 0-10 Units 0-10 Units subcutaneous TID withmeals insulin lispro (HumaLOG, ADMELOG) 100 unit/mL injection 0-5 Units 0-5 Units subcutaneous Nightly insulin lispro (HumaLOG, ADMELOG) 100 unit/mL injection 11 Units 11 Units subcutaneous TID with meals levothyroxine (SYNTHROID) tablet 75 mcg 75 mcg oral Daily - 0600 lidocaine (ASPERCREME) 4 % patch 1 patch 1 patch transdermal Q24H magnesium oxide (MAG-OX) tablet 400 mg 400 mg oral Daily metoprolol XL (TOPROL-XL) extended release tablet 75 mg 75 mg oral Daily mirabegron ER (MYRBETRIQ) extended release tablet 25 mg 25 mg oral Daily nortriptyline (PAMELOR) capsule 10 mg 10 mg oral Nightly pantoprazole DR (PROTONIX) extended release tablet 20 mg 20 mg oral Daily sacubitriL-valsartan (ENTRESTO) 24-26 mg tablet 1 tablet 1 tablet oral BID senna-docusate (PERICOLACE) 8.6-50 mg per tablet 1 tablet 1 tablet oral BID sodium chloride 0.9% flush 0.5-20 mL 0.5-20 mL intra-catheter Q8H GALINA spironolactone (ALDACTONE) split tablet 12.5 mg 12.5 mg oral Daily Continuous Meds: Current Facility-Administered Medications Medication Dose Route Frequency Last Admin PRN Meds: PRN Medications Medication Dose Route Frequency Last Admin acetaminophen (TYLENOL) tablet 650 mg 650 mg oral Q4H PRN 650 mg at 07/23/24 1133 Carrier Fluids for Secondary Infusion - 0.9% Sodium Chloride 30 mL intravenous PRN cyclobenzaprine (FLEXERIL) tablet 5 mg 5 mg oral TID PRN 5 mg at 07/23/24 1133 dextrose gel in packet 15 g 15 g oral Q15 Min PRN Or dextrose (D10W) 10% bolus 250 mL 250 mL intravenous Q15 Min PRN glucagon injection 1 mg 1 mg intramuscular Q30 Min PRN 1 mg at 07/21/24 1420 lidocaine (LMX) 4 % cream 1 Application 1 Application topical QID PRN ondansetron ODT (ZOFRAN-ODT) disintegrating tablet 4 mg 4 mg oral Q6H PRN Or ondansetron (ZOFRAN) injection 4 mg 4 mg intravenous Q6H PRN 4 mg at 07/13/24 1728 polyethylene glycol (MIRALAX) packet 17 g 17 g oral Daily PRN 17 g at 07/21/24 1422 ramelteon (ROZEREM) tablet 8 mg 8 mg oral Nightly PRN 8 mg at 07/14/24 2134 sodium chloride 0.9% flush 0.5-20 mL 0.5-20 mL intra-catheter PRN Physical Exam Physical Exam: Gen: No apparent distress. Resting comfortably. Cooperative. HEENT: No conjunctival pallor or injection, no icterus. No nasal discharge. Moist mucus membranes. Cardiac: Irregularly irregular rate and rhythm, normal S1/S2. No murmurs appreciated Pulm: Clear to auscultation bilaterally without crackles, wheezes, rhonchi Abdomen: Soft. No tenderness or distension. Extremity: Warm. No edema. No clubbing or cyanosis. Neuro: Alert and orientedx3. No focal deficits. Voiced understanding on reason for being in hospital, benefits from simple explanations Skin: No lesions, erythema, or skin changes. Psych: Mood appropriate. Appropriate insight. Laboratory Results Recent Results (from the past 24 hour(s)) POCT glucose Collection Time: 07/22/24 3:46 PM Result Value Ref Range Glucose, POC 76 70 - 199 mg/dL POCT glucose Collection Time: 07/22/24 5:02 PM Result Value Ref Range Glucose, POC 110 70 - 199 mg/dL POCT glucose Collection Time: 07/23/24 12:18 PM Result Value Ref Range Glucose, POC 286 (H) 70 - 199 mg/dL Imaging Results PET/CT FDG Skull to Thigh Narrative: EXAMINATION: TUMOR FDG-PET/CT IMAGING DATE OF STUDY: 07/23/2024 SCANNER: [facility] Sumavision (NV1). This is a high-resolution scanner, which [...] obtained. The study was interpreted on the [employer] workstation. The mean liver SUV (reported for senior data quality analyst purposes) is 3.0. For evaluation of sarcoidosis, [...] the PET/CT were reviewed with Dr. Walker. Impression: 1. No FDG PET/CT evidence of osteomyelitis or any other site of primary infectious process. 2. No FDG PET CT evidence of active inflammatory process in the lungs are myocardium. Dictated by: Truong Jeffers MD The radiology attending physician has personally reviewed this study, and had reviewed and/or edited this written report and agrees with it. Electronically signed by: Jason Estevez MD ASSESSMENT & PLAN Lei Rodriguez is a 63 y.o. female with a PMHx significant for MSSA bacteremia (05/2024), A-fib,HFrEF (EF 30%), T2DM, GERD, Intellectual disability, OAB, JOSE, and hypothyroidism who presented to OSH 06/28 for back pain. Found to have + blood cx for staph aureus and CT c/f OM. Tx to [facility] for further evaluation and treatment. 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 #MSSA TV Endocarditis, recurrent, secondary to infected ICD lead #History of Vfib/VT Recent admit 05/2024 for MSSA bacteremia. Per outside hospital, TTE and GT no vegetations on valvesor on ICD wires. Treated with 4 weeks of IV Ancef ending 06/21. Review of ID notes from OSH show blood cultures remained clear on 06/13. 07/01 blood cx were drawn x2, 10/11 then second set 11/11 MSSA. Vanc+ Ancef started, Vanc d/c 07/03. 07/02 cx NGTD. Concern for lack of source control given recurrence, with potential sources including ICD, heart valves, osteomyelitis of spine given patient's back pain. Ongoing assessment throughout admission. BCx on admission 07/08/24 no growth, HIV NR. TTE 07/07/24 demonstrated echodensity on V lead of ICD, GT demonstrating vegetation on TV without vegetation on ICD, as well as thrombus in LA. ICD was interrogated showing shocks on 06/10/24 for ventricular arrhythmia, not pacer dependent. ICD removed 07/13/24. Per multidisciplinary discussion with CTS, valvular, not a candidate for angiovac or TV surgery. Potential ongoing sources include spine and wire in PA seen on repeat imaging 07/14. MRI not safe given retained wire, and wire likely to be lifetime source for recurrent infection as removal would be extremely high risk per CTS and vascular surgery. Current Plan: - Cardiac surgery, EP, ID consulted, appreciate ongoing recommendations - continue Ancef 2g Q8H x 6 weeks (07/13-08/23) then lifetime cefadroxil 1 g BID - FDG PET spine without evidence of osteomyelitis or any other site of primary infectious process 07/23/24 - continuous tele 07/23 - Revisiting safety of replacing ICD with ID, EP. Per ID, confirmed current recommendation is standard of care in these settings. Awaiting EP recommendations regarding suitability for reimplantation as well as viability of life vest if ICD is kept out for duration of antibiotics - Pursuing vascular access for ongoing antibiotics outpatient #MARK, resolved Cr elevated to 1.66 in PM 07/18 labs. Urine lytes FeUrea consistent with pre- renal, suspect most likely in setting of transient hypotension during RVR 07/18 afternoon. UA not consistent with UTI, Cr improved to baseline 0.94 on 07/21, has since refused labs #Hx of intellectual disability/developmental delay #Agitation #Concern for suicidality Sister Dilia currently takes care of patient, other sister Peg assists. Both discuss pt medical decisions together. Patient is not consentable - As in interval history 07/18, patient expressed sentiments of preferring to over remaining in hospital. Per assessment by primary team, not felt to be actively suicidal at this time, deferred sitter - Psychiatry consulted, appreciate further recommendations. Haldol 2 mg PRN for agitation, avoid further benzos due to concern of delirium #HFrEF - compensated EF of 30% on 05/2024 echocardiogram, mild-mod MR, RVSP 42 mild-mod TR. On chart review, patient hadHFrEF dating back to at least 2016, though etiology of this not clearly established. Current GDMT includes metoprolol, Entresto 24-26 BID, furosemide 40 daily - Not on Farxiga due to recurrent UTI - Initiated spironolactone 12.5 mg 07/09 - CTA coronary obtained 07/16 without evidence of CAD (calcium score 0) - Cardiac sarcoid protocol 07/23/24 without active inflammatory process in the myocardium #Persistent atrial fibrillation #MAULIK Thrombus In AFib on admission. Previously on Tikosyn, however, taken off of Tikosyn after admission for MSSA, and was continued on Xarelto for AC and Coreg for rate control in May. GT in May 2024 performed to eval for endocarditis showed LA thrombus; had been on Xarelto at the time per chart review. At OSH just prior to this admission, patient had RVR and received dual tim blockade with dilt and metoprolol, stopped dilt 2/2 reduced EF and continued on metoprolol, increased to 75 daily after RVRon 07/18 in setting of acute agitation. Currently rate controlled. - anticoagulation: heparin gtt -> Eliquis 07/14 - metoprolol succinate 75 #T2DM Home regimen: glargine 18u; Lispro 10 TID + SSI. A1c here 7.7 on 07/07/24. - Currently on Lantus 26 and mealtime 9 TID + HDSSI given hyperglycemia - poorly controlled 07/21- given hypoglycemia on 07/21, poor PO intake in setting of sarcoid dieton 07/22 - POC glucose TIDAC #Anemia: Hgb 10.8 on arrival. Bl: 11-12. MCV elevated. B12 > 1000 at OSH, Folate wnl. CTM #Recurrent UTI #OAB Per family, has been treated multiple times recently for UTIs. Her symptoms are not urinary in nature, her symptoms typically are becoming delirious and belligerent. UA at outside hospital with 0-5 WBC, 3+ nitrate. Cx was performed which showed >100,000 colonies E coli and per documentation completed course of ceftriaxone for UTI. - Given ongoing concerns with family surrounding possible UTI, UA 07/19 negative - Home Vibegron 75 --> change to Mirabegron for formulary #Hypothyroidism: Synthroid 75mcg, TSH 2.8 #Depression: Continue Lexapro 10, nortriptyline 10 #GERD: Pantoprazole 20 #Constipation: Senna-Docusate BID #JOSE: ordered CPAP, pt reportedly intermittently compliant at home Dispo Planning: - will need to confirm timing for ICD re implantation with EP/ID post ICD removal on 07/13 - Will need to stop Eliquis/transition to heparin in advance of procedural intervention - Therefore will need to re-establish access, location for this (SNF vs home), and plan for monitoring on antibiotics Code Status: Full Code Disposition: pending Best contact: Primary Emergency Contact: Dilia Moise Diet: Adult Diet Restricted; 2 GM Sodium; Consistent Carbohydrate; Send on Disposables VTE Prophylaxis: Eliquis PT: PT Recommendation/Plan: Jail Facility OT:OT Recommendation: Jail Facility Valentina Brown MD PGY-1 Internal Medicine Cosigned by Suman Chávez MD at 07/23/2024 3:53 PM CDT Associated attestation - Suman Chávez MD - 07/23/2024 3:53 PM CDT Attending Documentation I have seen and examined the patient on 07/23/24. I agree with the findings and plan of care as documented in the resident's/fellow's note.63 y/o Female with PMH of HFrEF s/p ICD, AFib, T2DM, JOSE, low intellect, was found with bacteremia and vegetation to ICD lead and to tricuspid valve. Device was extracted. Echo reviewed shows vegetation to TV. Not a surgical candidate. Plan for 4-6 weeks AB therapy as OP. Would need PICC line. Will consult EPregarding life vest and timing for ICD re-implantation. Supplementary Attestation Today, I am treating the patient for CIED infection, TV endocarditis, HFrEF which is in moderate exacerbation, progression, or experiencing treatment side effects as evidenced by clinical and imaging, as described in the note. Suman Chávez MD 07/23/2024 3:43 PM * Jennifer Webb RD - 07/23/2024 1:44 PM CDT Nutrition Screen Note Pt. Screened for nutritional assessment secondary to Follow up Past Medical History: Diagnosis Date A-fib (CMS/HCC) (HCC) CHF (congestive heart failure) (CMS/HCC) (HCC) Diabetes mellitus (HCC) GERD (gastroesophageal reflux disease) Hypertension Intellectual disability OAB (overactive bladder) Sleep apnea Thyroid disease Past Surgical History: Procedure Laterality Date CARDIAC DEFIBRILLATOR PLACEMENT CHOLECYSTECTOMY INSERT / REPLACE / REMOVE PACEMAKER IR PICC LINE PLACEMENT > 5 YEARS N/A 06/05/2024 OTHER SURGICAL HISTORY 05/31/2024 GT/CARDIOVERSION Anthropometrics Weight: 109 kg (240 lb 6.4 oz) Admission Weight : 113.6 kg Weight Change: 0.00 kg (0.00 lbs) IBW/kg (Calculated) : 56.7 kg Height: 165.1 cm (5' 5 ) Weight in (lb) to have BMI = 25: 149.9 BMI (Calculated): 40 Adult Malnutrition Scoring Tool (MST) What diet do you follow at home?: none Have You Recently Lost Weight Without Trying?: No Have you been eating poorly because of a decreased appetite?: No Malnutrition Screening Tool (MST) Score: 0 Dietary Orders (From admission, onward) Start Ordered 07/23/24 1034 Adult Diet Regular; Send on Disposables Diet effective now Question Answer Comment ([facility]) Diet type Regular Injury Risk: Send on Disposables 07/23/24 1056 07/07/24 2100 Bedtime snack At bedtime Comments: If bedtime BG is less than 100mg/dl, give patient a 15 gram carbohydrate snack. 07/07/24 0108 Assessment / Impression: RD attempted to see Pt twice, first time Pt off floor and second time Pt upset on phone and crying. Documented po intakes appear fairly good, continue to follow. Jennifer Webb MS, RD, LD [phone] * Valentina Brown MD - 07/22/2024 7:10 AM CDT Medicine Daily Progress Note Patient: Lei Rodriguez : 1960 (63 y.o.) Date of Admission: 07/07/2024 Date of Service: 07/22/24 SUBJECTIVE Interval Events: - No acute events overnight, patient refused labs this morning - Episode of hypoglycemia to 55 yesterday after patient reported feeling shaky. Received glucagon, juice with improvement to 113 and resolution of symptoms - Vitals stable, BPs in 90s-100s, rate controlled on tele for most part, briefly up to 122 - Patient denies acute symptoms last night. Tearful when visited this morning, very concerned aboutdiet tonight and having to fast tomorrow, and worried about lying still for PET tomorrow - Agreeable to plan if can have hamburger, tuna, fish, fries tomorrow Plan for Today: - Sarcoid diet tonight, NPO until scan tomorrow AM - No other changes to plan OBJECTIVE Vitals Most Recent: Vitals: 07/22/24 0022 BP: 100/60 Pulse: 83 Resp: 20 Temp: 36.5 ??C (97.7 ??F) SpO2: 98% 24 Hour Min/Max: Temp Min: 36.5 ??C (97.7 ??F) Max: 36.6 ??C (97.8 ??F) Pulse Min: 79 Max: 89 BP Min: 95/58 Max: 104/77 Resp Min: 19 Max: 20 SpO2 Min: 91 % Max: 98 % Intake/Output No intake or output data in the 24 hours ending 07/22/24 0710 Current Medications Scheduled Meds: Scheduled Medications Medication Dose Route Frequency apixaban (ELIQUIS) tablet 5 mg 5 mg oral Q12H GALINA ceFAZolin (ANCEF) 2,000 mg/20 mL in sterile water (premix) 2,000 mg 2,000 mg intravenous Q8H GALINA escitalopram (LEXAPRO) tablet 10 mg 10 mg oral Daily furosemide (LASIX) tablet 40 mg 40 mg oral Daily insulin glargine (LANTUS, SEMGLEE) 100 unit/mL injection 26 Units 26 Units subcutaneous QAM insulin lispro (HumaLOG, ADMELOG) 100 unit/mL injection 0-10 Units 0-10 Units subcutaneous TID withmeals insulin lispro (HumaLOG, ADMELOG) 100 unit/mL injection 0-5 Units 0-5 Units subcutaneous Nightly insulin lispro (HumaLOG, ADMELOG) 100 unit/mL injection 9 Units 9 Units subcutaneous TID with meals levothyroxine (SYNTHROID) tablet 75 mcg 75 mcg oral Daily - 0600 lidocaine (ASPERCREME) 4 % patch 1 patch 1 patch transdermal Q24H magnesium oxide (MAG-OX) tablet 400 mg 400 mg oral Daily metoprolol XL (TOPROL-XL) extended release tablet 75 mg 75 mg oral Daily mirabegron ER (MYRBETRIQ) extended release tablet 25 mg 25 mg oral Daily nortriptyline (PAMELOR) capsule 10 mg 10 mg oral Nightly pantoprazole DR (PROTONIX) extended release tablet 20 mg 20 mg oral Daily sacubitriL-valsartan (ENTRESTO) 24-26 mg tablet 1 tablet 1 tablet oral BID senna-docusate (PERICOLACE) 8.6-50 mg per tablet 1 tablet 1 tablet oral BID sodium chloride 0.9% flush 0.5-20 mL 0.5-20 mL intra-catheter Q8H GALINA spironolactone (ALDACTONE) split tablet 12.5 mg 12.5 mg oral Daily Continuous Meds: Current Facility-Administered Medications Medication Dose Route Frequency Last Admin Lactated Ringer's 30 mL/hr intravenous Continuous New Bag at 07/13/24 1516 PRN Meds: PRN Medications Medication Dose Route Frequency Last Admin acetaminophen (TYLENOL) tablet 650 mg 650 mg oral Q4H PRN 650 mg at 07/22/24 0041 Carrier Fluids for Secondary Infusion - 0.9% Sodium Chloride 30 mL intravenous PRN cyclobenzaprine (FLEXERIL) tablet 5 mg 5 mg oral TID PRN 5 mg at 07/15/24 2219 dextrose gel in packet 15 g 15 g oral Q15 Min PRN Or dextrose (D10W) 10% bolus 250 mL 250 mL intravenous Q15 Min PRN glucagon injection 1 mg 1 mg intramuscular Q30 Min PRN 1 mg at 07/21/24 1420 lidocaine (LMX) 4 % cream 1 Application 1 Application topical QID PRN ondansetron ODT (ZOFRAN-ODT) disintegrating tablet 4 mg 4 mg oral Q6H PRN Or ondansetron (ZOFRAN) injection 4 mg 4 mg intravenous Q6H PRN 4 mg at 07/13/24 1728 polyethylene glycol (MIRALAX) packet 17 g 17 g oral Daily PRN 17 g at 07/21/24 1422 ramelteon (ROZEREM) tablet 8 mg 8 mg oral Nightly PRN 8 mg at 07/14/24 2134 sodium chloride 0.9% flush 0.5-20 mL 0.5-20 mL intra-catheter PRN Physical Exam Physical Exam: Gen: No apparent distress. Resting comfortably. Cooperative. HEENT: No conjunctival pallor or injection, no icterus. No nasal discharge. Moist mucus membranes. Cardiac: Irregularly irregular rate and rhythm, normal S1/S2. No murmurs appreciated Pulm: Clear to auscultation bilaterally without crackles, wheezes, rhonchi Abdomen: Soft. No tenderness or distension. Extremity: Warm. No edema. No clubbing or cyanosis. Neuro: Alert and orientedx3. No focal deficits. Voiced understanding on reason for being in hospital, benefits from simple explanations Skin: No lesions, erythema, or skin changes. Psych: Mood appropriate. Appropriate insight. Laboratory Results Recent Results (from the past 24 hour(s)) POCT glucose Collection Time: 07/21/24 9:15 AM Result Value Ref Range Glucose, POC 186 70 - 199 mg/dL POCT glucose Collection Time: 07/21/24 12:11 PM Result Value Ref Range Glucose, POC 156 70 - 199 mg/dL POCT glucose Collection Time: 07/21/24 2:14 PM Result Value Ref Range Glucose, POC 55 (L) 70 - 199 mg/dL POCT glucose Collection Time: 07/21/24 3:02 PM Result Value Ref Range Glucose, POC 113 70 - 199 mg/dL POCT glucose Collection Time: 07/21/24 5:12 PM Result Value Ref Range Glucose, POC 214 (H) 70 - 199 mg/dL POCT glucose Collection Time: 07/21/24 8:40 PM Result Value Ref Range Glucose, POC 235 (H) 70 - 199 mg/dL Imaging Results NM MPI SPECT Single Study (Rest) for Sarcoidosis Narrative: EXAMINATION: MYOCARDIAL IMAGING (REST/SPECT-CT) DATE OF STUDY: [...] right, no appreciable arterial calcification, multilevel spondylosis. Impression: 1. Normal rest myocardial perfusion. 2. Mild left ventricular dilation and severe global hypokinesis. LVEF about 21%. Please see separate FDG PET report for evaluation of inflammation. (s)Yoanna Guerin also participated in the interpretation of this examination. Electronically signed by: Bernardino Walker M.D. ASSESSMENT & PLAN Lei Rodriguez is a 63 y.o. female with a PMHx significant for MSSA bacteremia (05/2024), A-fib,HFrEF (EF 30%), T2DM, GERD, Intellectual disability, OAB, JOSE, and hypothyroidism who presented to OSH 06/28 for back pain. Found to have + blood cx for staph aureus and CT c/f OM. Tx to [facility] for further evaluation and treatment. 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 #MSSA TV Endocarditis, recurrent, secondary to infected ICD lead #History of Vfib/VT Recent admit 05/2024 for MSSA bacteremia. Per outside hospital, TTE and GT no vegetations on valvesor on ICD wires. Treated with 4 weeks of IV Ancef ending 06/21. Review of ID notes from OSH show blood cultures remained clear on 06/13. 07/01 blood cx were drawn x2, 10/11 then second set 11/11 MSSA. Vanc+ Ancef started, Vanc d/c 07/03. 07/02 cx NGTD. Concern for lack of source control given recurrence, with potential sources including ICD, heart valves, osteomyelitis of spine given patient's back pain. Ongoing assessment throughout admission. BCx on admission 07/08/24 no growth, HIV NR. TTE 07/07/24 demonstrated echodensity on V lead of ICD, GT demonstrating vegetation on TV without vegetation on ICD, as well as thrombus in LA. ICD was interrogated showing shocks on 06/10/24 for ventricular arrhythmia, not pacer dependent. ICD removed 07/13/24. Per multidisciplinary discussion with CTS, valvular, not a candidate for angiovac or TV surgery. Potential ongoing sources include spine and wire in PA seen on repeat imaging 07/14. MRI not safe given retained wire, and wire likely to be lifetime source for recurrent infection as removal would be extremely high risk per CTS and vascular surgery. Current Plan: - Cardiac surgery, EP, ID consulted, appreciate ongoing recommendations - continue Ancef 2g Q8H x 6 weeks (07/13-08/23) then lifetime cefadroxil 1 g BID - FDG PET spine pending for osteo eval - continuous tele 07/22 - Pursuing PET FDG for spine eval as MRI not safe with wire, Tuesday night. No - Plan to remain inpatient until replacement of ICD #MARK, resolved Cr elevated to 1.66 in PM 07/18 labs. Urine lytes FeUrea consistent with pre- renal, suspect most likely in setting of transient hypotension during RVR 07/18 afternoon. UA not consistent with UTI, Cr improved to baseline 0.94 on 07/21 #Hx of intellectual disability/developmental delay #Agitation #Concern for suicidality Sister Dilia currently takes care of patient, other sister Peg assists. Both discuss pt medical decisions together. Patient is not consentable - As in interval history 07/18, patient expressed sentiments of preferring to over remaining in hospital. Per assessment by primary team, not felt to be actively suicidal at this time, deferred sitter - Psychiatry consulted, appreciate further recommendations. Haldol 2 mg PRN for agitation, avoid further benzos due to concern of delirium #HFrEF - compensated EF of 30% on 05/2024 echocardiogram, mild-mod MR, RVSP 42 mild-mod TR. On chart review, patient hadHFrEF dating back to at least 2016, though etiology of this not clearly established. Current GDMT includes metoprolol, Entresto 24-26 BID, furosemide 40 daily - Not on Farxiga due to recurrent UTI - Initiated spironolactone 12.5 mg 07/09 - CTA coronary obtained 07/16 without evidence of CAD (calcium score 0) - Cardiac PET (sarcoid protocol) ordered, planned for 07/23 #Persistent atrial fibrillation #MAULIK Thrombus In AFib on admission. Previously on Tikosyn, however, taken off of Tikosyn after admission for MSSA, and was continued on Xarelto for AC and Coreg for rate control in May. GT in May 2024 performed to eval for endocarditis showed LA thrombus; had been on Xarelto at the time per chart review. At OSH just prior to this admission, patient had RVR and received dual tim blockade with dilt and metoprolol, stopped dilt 2/2 reduced EF and continued on metoprolol, increased to 75 daily after RVRon 07/18 in setting of acute agitation. Currently rate controlled. - anticoagulation: heparin gtt -> Eliquis 10/5 - metoprolol succinate 75 #T2DM Home regimen: glargine 18u; Lispro 10 TID + SSI. A1c here 7.7 on 07/07/24. - Currently on Lantus 26 and mealtime 9 TID + HDSSI given hyperglycemia - Well controlled in last 24 hours - POC glucose TIDAC #Anemia: Hgb 10.8 on arrival. Bl: 11-12. MCV elevated. B12 > 1000 at OSH, Folate wnl. CTM #Recurrent UTI #OAB Per family, has been treated multiple times recently for UTIs. Her symptoms are not urinary in nature, her symptoms typically are becoming delirious and belligerent. UA at outside hospital with 0-5 WBC, 3+ nitrate. Cx was performed which showed >100,000 colonies E coli and per documentation completed course of ceftriaxone for UTI. - Given ongoing concerns with family surrounding possible UTI, UA 07/19 negative - Home Vibegron 75 --> change to Mirabegron for formulary #Hypothyroidism: Synthroid 75mcg, TSH 2.8 #Depression: Continue Lexapro 10, nortriptyline 10 #GERD: Pantoprazole 20 #Constipation: Senna-Docusate BID #JOSE: ordered CPAP, pt reportedly intermittently compliant at home Dispo Planning: - will need to confirm timing for ICD re implantation with EP after completing 14 days of antibiotics post ICD removal on 07/13 - Will need to stop Eliquis/transition to heparin in advance of procedural intervention - After ICD placement will still need 4 additional weeks of q8h IV antibiotics. Therefore will needto re-establish access, location for this (SNF vs home), and plan for monitoring on antibiotics Code Status: Full Code Disposition: pending Best contact: Primary Emergency Contact: Dilia Moise Diet: Adult Diet Restricted; 2 GM Sodium; Consistent Carbohydrate; Send on Disposables VTE Prophylaxis: Eliquis PT: PT Recommendation/Plan: Jail Facility OT:OT Recommendation: Jail Facility Valentina Brown MD PGY-1 Internal Medicine Cosigned by Russ Pride MD at 07/22/2024 7:28 PM CDT Associated attestation - Russ Pride MD - 07/22/2024 7:28 PM CDT I have seen and examined the patient on 07/22/24. I agree with the findings and plan of care as documented in Dr. Brown's note. History: Hypoglycemic overnight with BS 55 associated with shakiness. Very upset, angry, and tearful about dietary prep for PET scan tomorrow. States that she wants a hamburger and fries for dinner (not permitted with PET protocol). PE: VSS. CV/pulm exam unchanged. I have personally reviewed the following lab data: Labile BS ranging from 55-312 Creat 0.94, Hb 11.2, lytes normal Impression: 1. TV endocarditis with MSSA 2. VT/VT s/p ICD removal due to concern for infection 3. Chronic HFrEF 4. Persistent AF 5. DM with labile BS 6. Intellectual disability with labile affect 7. Other problems as per resident. Plan: 1. Continue current therapy, including optimizing DM control 2. Clonazepam/Zyprexa prior to PET scan tomorrow 3. Additional plans pending PET findings 4. Continue IV antibiotics through Tuesday, then consider timing of ICD reimplantation. 5. Other plans as per resident. Medical Decision Making: Medical complexity: Moderate to high Risk: Moderate to high due to multiple medical problems and unprotected VT/VF Level of medical decision-making: Moderate to high Management was discussed with the patient, daughter (on phone) and team and all questions were addressed. Russ Pride MD pss delivery professional Date of note: 07/22/24. * Valentina Brown MD - 07/21/2024 11:59 AM CDT Medicine Daily Progress Note Patient: Lei Rodriguez : 1960 (63 y.o.) Date of Admission: 07/07/2024 Date of Service: 07/21/24 SUBJECTIVE Interval Events: - No acute events overnight - Patient seen this AM lying in bed. She denies acute complaints, says she likes her current room - UA obtained did not demonstrate infection - tele off briefly overnight, back on in rate controlled afib Plan for Today: - Cardiac/spine PET pending, planned for Tuesday with sarcoid diet beginning tomorrow PM - Dispo planning: will need to confirm timing for ICD re implantation with EP after completing 14 days of antibiotics post ICD removal on 07/13. Will need transition to heparin with stopping Eliquis in advance. After ICD placement will still need 4 additional weeks of q8h IV antibiotics, will need to re-establish access, location for this (SNF vs home), and plan for monitoring on antibiotics OBJECTIVE Vitals Most Recent: Vitals: 07/21/24 0916 BP: 103/50 Pulse: 79 Resp: 20 Temp: 36.5 ??C (97.7 ??F) SpO2: 91% 24 Hour Min/Max: Temp Min: 36.4 ??C (97.5 ??F) Max: 36.5 ??C (97.7 ??F) Pulse Min: 79 Max: 90 BP Min: 96/60 Max: 125/82 Resp Min: 18 Max: 20 SpO2 Min: 91 % Max: 94 % Intake/Output Intake/Output Summary (Last 24 hours) at 07/21/2024 1159 Last data filed at 07/20/2024 1232 Gross per 24 hour Intake 220 ml Output -- Net 220 ml Current Medications Scheduled Meds: Scheduled Medications Medication Dose Route Frequency apixaban (ELIQUIS) tablet 5 mg 5 mg oral Q12H GALINA ceFAZolin (ANCEF) 2,000 mg/20 mL in sterile water (premix) 2,000 mg 2,000 mg intravenous Q8H GALINA escitalopram (LEXAPRO) tablet 10 mg 10 mg oral Daily furosemide (LASIX) tablet 40 mg 40 mg oral Daily insulin glargine (LANTUS, SEMGLEE) 100 unit/mL injection 26 Units 26 Units subcutaneous QAM insulin lispro (HumaLOG, ADMELOG) 100 unit/mL injection 0-10 Units 0-10 Units subcutaneous TID withmeals insulin lispro (HumaLOG, ADMELOG) 100 unit/mL injection 0-5 Units 0-5 Units subcutaneous Nightly insulin lispro (HumaLOG, ADMELOG) 100 unit/mL injection 9 Units 9 Units subcutaneous TID with meals levothyroxine (SYNTHROID) tablet 75 mcg 75 mcg oral Daily - 0600 lidocaine (ASPERCREME) 4 % patch 1 patch 1 patch transdermal Q24H magnesium oxide (MAG-OX) tablet 400 mg 400 mg oral Daily metoprolol XL (TOPROL-XL) extended release tablet 75 mg 75 mg oral Daily mirabegron ER (MYRBETRIQ) extended release tablet 25 mg 25 mg oral Daily nortriptyline (PAMELOR) capsule 10 mg 10 mg oral Nightly pantoprazole DR (PROTONIX) extended release tablet 20 mg 20 mg oral Daily sacubitriL-valsartan (ENTRESTO) 24-26 mg tablet 1 tablet 1 tablet oral BID senna-docusate (PERICOLACE) 8.6-50 mg per tablet 1 tablet 1 tablet oral BID sodium chloride 0.9% flush 0.5-20 mL 0.5-20 mL intra-catheter Q8H GALINA spironolactone (ALDACTONE) split tablet 12.5 mg 12.5 mg oral Daily Continuous Meds: Current Facility-Administered Medications Medication Dose Route Frequency Last Admin Lactated Ringer's 30 mL/hr intravenous Continuous New Bag at 07/13/24 1516 PRN Meds: PRN Medications Medication Dose Route Frequency Last Admin acetaminophen (TYLENOL) tablet 650 mg 650 mg oral Q4H PRN 650 mg at 07/20/24 2308 Carrier Fluids for Secondary Infusion - 0.9% Sodium Chloride 30 mL intravenous PRN cyclobenzaprine (FLEXERIL) tablet 5 mg 5 mg oral TID PRN 5 mg at 07/15/24 2219 dextrose gel in packet 15 g 15 g oral Q15 Min PRN Or dextrose (D10W) 10% bolus 250 mL 250 mL intravenous Q15 Min PRN glucagon injection 1 mg 1 mg intramuscular Q30 Min PRN lidocaine (LMX) 4 % cream 1 Application 1 Application topical QID PRN ondansetron ODT (ZOFRAN-ODT) disintegrating tablet 4 mg 4 mg oral Q6H PRN Or ondansetron (ZOFRAN) injection 4 mg 4 mg intravenous Q6H PRN 4 mg at 07/13/24 1728 polyethylene glycol (MIRALAX) packet 17 g 17 g oral Daily PRN ramelteon (ROZEREM) tablet 8 mg 8 mg oral Nightly PRN 8 mg at 07/14/24 2134 sodium chloride 0.9% flush 0.5-20 mL 0.5-20 mL intra-catheter PRN Physical Exam Physical Exam: Gen: No apparent distress. Resting comfortably. Cooperative. HEENT: No conjunctival pallor or injection, no icterus. No nasal discharge. Moist mucus membranes. Cardiac: Irregularly irregular rate and rhythm, normal S1/S2. No murmurs appreciated Pulm: Clear to auscultation bilaterally without crackles, wheezes, rhonchi Abdomen: Soft. No tenderness or distension. Extremity: Warm. No edema. No clubbing or cyanosis. Neuro: Alert and orientedx3. No focal deficits. Voiced understanding on reason for being in hospital, benefits from simple explanations Skin: No lesions, erythema, or skin changes. Psych: Mood appropriate. Appropriate insight. Laboratory Results Recent Results (from the past 24 hour(s)) POCT glucose Collection Time: 07/20/24 12:08 PM Result Value Ref Range Glucose, POC 173 70 - 199 mg/dL POCT glucose Collection Time: 07/20/24 5:55 PM Result Value Ref Range Glucose, POC 92 70 - 199 mg/dL POCT glucose Collection Time: 07/20/24 7:44 PM Result Value Ref Range Glucose, POC 165 70 - 199 mg/dL CBC without differential Collection Time: 07/20/24 8:23 PM Result Value Ref Range WBC 5.1 3.8 - 9.9 K/cumm Hgb 11.2 (L) 11.9 - 15.5 g/dL Hct 34.8 (L) 35.6 - 45.5 % Plt 279 150 - 400 K/cumm MPV 9.7 9.1 - 12.3 fL RBC 3.49 (L) 3.90 - 5.20 M/cumm MCV 99.7 (H) 81.3 - 96.4 fL MCH 32.1 27.1 - 33.3 pg MCHC 32.2 (L) 32.3 - 35.7 g/dL RDW CV 13.6 11.1 - 14.9 % RDW SD 49.9 (H) 35.7 - 48.1 fL NRBC abs 0.00 0.00 - 0.01 K/cumm Comprehensive metabolic panel Collection Time: 07/20/24 8:23 PM Result Value Ref Range Sodium 139 135 - 145 mmol/L Potassium, pl 4.5 3.3 - 4.9 mmol/L Chloride 101 97 - 110 mmol/L CO2 27 22 - 32 mmol/L Anion gap 11 2 - 15 mmol/L BUN 22 6 - 25 mg/dL Creatinine 0.94 0.60 - 1.10 mg/dL Glucose 159 70 - 199 mg/dL Calcium 9.8 8.5 - 10.3 mg/dL Bilirubin, total 0.2 0.1 - 1.2 mg/dL Protein, pl 7.5 6.5 - 8.5 g/dL Albumin 3.4 (L) 3.5 - 5.0 g/dL Alk phos 155 (H) 40 - 130 Units/L ALT 7 7 - 45 Units/L AST 29 10 - 45 Units/L Magnesium Collection Time: 07/20/24 8:23 PM Result Value Ref Range Magnesium 2.1 1.4 - 2.5 mg/dL eGFR Collection Time: 07/20/24 8:23 PM Result Value Ref Range eGFR 69 >=60 mL/min/1.73 m2 POCT glucose Collection Time: 07/21/24 9:15 AM Result Value Ref Range Glucose, POC 186 70 - 199 mg/dL Imaging Results NM MPI SPECT Single Study (Rest) for Sarcoidosis Narrative: EXAMINATION: MYOCARDIAL IMAGING (REST/SPECT-CT) DATE OF STUDY: [...] right, no appreciable arterial calcification, multilevel spondylosis. Impression: 1. Normal rest myocardial perfusion. 2. Mild left ventricular dilation and severe global hypokinesis. LVEF about 21%. Please see separate FDG PET report for evaluation of inflammation. (alexis Guerin also participated in the interpretation of this examination. Electronically signed by: Bernardino Walker M.D. ASSESSMENT & PLAN Lei Rodriguez is a 63 y.o. female with a PMHx significant for MSSA bacteremia (05/2024), A-fib,HFrEF (EF 30%), T2DM, GERD, Intellectual disability, OAB, JOSE, and hypothyroidism who presented to OSH 06/28 for back pain. Found to have + blood cx for staph aureus and CT c/f OM. Tx to [facility] for further evaluation and treatment. 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 #MSSA TV Endocarditis, recurrent, secondary to infected ICD lead #History of Vfib/VT Recent admit 05/2024 for MSSA bacteremia. Per outside hospital, TTE and GT no vegetations on valvesor on ICD wires. Treated with 4 weeks of IV Ancef ending 06/21. Review of ID notes from OSH show blood cultures remained clear on 06/13. 07/01 blood cx were drawn x2, 10/11 then second set 11/11 MSSA. Vanc+ Ancef started, Vanc d/c 07/03. 07/02 cx NGTD. Concern for lack of source control given recurrence, with potential sources including ICD, heart valves, osteomyelitis of spine given patient's back pain. Ongoing assessment throughout admission. BCx on admission 07/08/24 no growth, HIV NR. TTE 07/07/24 demonstrated echodensity on V lead of ICD, GT demonstrating vegetation on TV without vegetation on ICD, as well as thrombus in LA. ICD was interrogated showing shocks on 06/10/24 for ventricular arrhythmia, not pacer dependent. ICD removed 07/13/24. Per multidisciplinary discussion with CTS, valvular, not a candidate for angiovac or TV surgery. Potential ongoing sources include spine and wire in PA seen on repeat imaging 07/14. MRI not safe given retained wire, and wire likely to be lifetime source for recurrent infection as removal would be extremely high risk per CTS and vascular surgery. Current Plan: - Cardiac surgery, EP, ID consulted, appreciate ongoing recommendations - continue Ancef 2g Q8H x 6 weeks (07/13-08/23) then lifetime cefadroxil 1 g BID - FDG PET spine pending for osteo eval - continuous tele 07/21 - Pursuing PET FDG for spine eval as MRI not safe with wire - possibly Tuesday - Plan to remain inpatient until replacement of ICD #MARK, resolved Cr elevated to 1.66 in PM 07/18 labs. Urine lytes FeUrea consistent with pre- renal, suspect most likely in setting of transient hypotension during RVR 07/18 afternoon. UA not consistent with UTI, Cr improved to baseline 0.94 on 07/21 #Hx of intellectual disability/developmental delay #Agitation #Concern for suicidality Sister Dilia currently takes care of patient, other sister Peg assists. Both discuss pt medical decisions together. Patient is not consentable - As in interval history 07/18, patient expressed sentiments of preferring to over remaining in hospital. Per assessment by primary team, not felt to be actively suicidal at this time, deferred sitter - Psychiatry consulted, appreciate further recommendations. Haldol 2 mg PRN for agitation, avoid further benzos due to concern of delirium #HFrEF - compensated EF of 30% on 05/2024 echocardiogram, mild-mod MR, RVSP 42 mild-mod TR. On chart review, patient hadHFrEF dating back to at least 2016, though etiology of this not clearly established. Current GDMT includes metoprolol, Entresto 24-26 BID, furosemide 40 daily - Not on Farxiga due to recurrent UTI - Initiated spironolactone 12.5 mg 07/09 - CTA coronary obtained 07/16 without evidence of CAD (calcium score 0) - Cardiac PET (sarcoid protocol) ordered, planned for 07/23 #Persistent atrial fibrillation #MAULIK Thrombus In AFib on admission. Previously on Tikosyn, however, taken off of Tikosyn after admission for MSSA, and was continued on Xarelto for AC and Coreg for rate control in May. GT in May 2024 performed to eval for endocarditis showed LA thrombus; had been on Xarelto at the time per chart review. At OSH just prior to this admission, patient had RVR and received dual tim blockade with dilt and metoprolol, stopped dilt 2/2 reduced EF and continued on metoprolol, increased to 75 daily after RVRon 07/18 in setting of acute agitation. Currently rate controlled. - anticoagulation: heparin gtt -> Eliquis 10/ - metoprolol succinate 75 #T2DM Home regimen: glargine 18u; Lispro 10 TID + SSI. A1c here 7.7 on 07/07/24. - Currently on Lantus 26 and mealtime 9 TID + HDSSI given hyperglycemia - Well controlled in last 24 hours - POC glucose TIDAC #Anemia: Hgb 10.8 on arrival. Bl: 11-12. MCV elevated. B12 > 1000 at OSH, Folate wnl. CTM #Recurrent UTI #OAB Per family, has been treated multiple times recently for UTIs. Her symptoms are not urinary in nature, her symptoms typically are becoming delirious and belligerent. UA at outside hospital with 0-5 WBC, 3+ nitrate. Cx was performed which showed >100,000 colonies E coli and per documentation completed course of ceftriaxone for UTI. - Given ongoing concerns with family surrounding possible UTI, UA 07/19 negative - Home Vibegron 75 --> change to Mirabegron for formulary #Hypothyroidism: Synthroid 75mcg, TSH 2.8 #Depression: Continue Lexapro 10, nortriptyline 10 #GERD: Pantoprazole 20 #Constipation: Senna-Docusate BID #JOSE: ordered CPAP, pt reportedly intermittently compliant at home Dispo Planning: - will need to confirm timing for ICD re implantation with EP after completing 14 days of antibiotics post ICD removal on 07/13 - Will need to stop Eliquis/transition to heparin in advance of procedural intervention - After ICD placement will still need 4 additional weeks of q8h IV antibiotics. Therefore will needto re-establish access, location for this (SNF vs home), and plan for monitoring on antibiotics Code Status: Full Code Disposition: pending Best contact: Primary Emergency Contact: Dilia Moise Diet: Adult Diet Restricted; 2 GM Sodium; Consistent Carbohydrate; Send on Disposables VTE Prophylaxis: Eliquis PT: PT Recommendation/Plan: Jail Facility OT:OT Recommendation: Jail Facility Valentina Brown MD PGY-1 Internal Medicine Cosigned by Russ Pride MD at 07/21/2024 3:35 PM CDT Associated attestation - Russ Pride MD - 07/21/2024 3:35 PM CDT I have seen and examined the patient on 07/21/24. I agree with the findings and plan of care as documented in Dr. Brown's note. History: Stable, PAULINE. Continues to c/o back pain and constipation. PE: VSS. CV/pulm exam unchanged. I have personally reviewed the following lab data: Creat 0.94, lytes normal, Hb 11.2, WBC 5.1 Impression: 1. TV endocarditis with MSSA bacteremia 2. VT/VF s/p removal of ICD due to concerns for infection 3. Chronic HFrEF 4. Persistent AF 5. Other problems as per resident. Plan: 1. Continue present therapy 2. PET Tuesday -- begin dietary prep tomorrow 3. D/C IV abx Tuesday and consider timing or ICD reimplantation 4. D/C planning after above 5. Other plans as per resident. Medical Decision Making: Medical complexity: Moderate to high Risk: Moderate to high Level of medical decision-making: Moderate to high Management was discussed with the patient, daughter (on phone) and team and all questions were addressed. Russ Pride MD pss delivery professional Date of note: 07/21/24. * Ha Martinez - 07/20/2024 2:08 PM CDT Occupational Therapy Occupational Therapy Progress Note NOTE: This is a summary note of the vaz components of the treatment session. For full details, review chart for all flowsheets documented on by this occupational therapy clinician on this date. Vitalsigns documented in vital signs flowsheet. Care plan progress documented in Care Plan Activity. For questions, please review the treatment team and contact the occupational therapist currently assigned to this patient. If an occupational therapist is not assigned to this patient, please call [phone]. 07/20/24 4089 General Session Type Treatment OT Received On 07/20/24 Safe Environment Arm band checked (Pt found standing at sink after toileting) Subjective Agreeable to Therapy Family/Caregiver Present No Precautions Precautions Fall risk Weight Bearing Restrictions No Pain Assessment Pain Assessment 0-10 Pain Score 10 - Worst possible pain Pain Location Back (Lumbar) Pain Interventions RN Notified (Patricia) Balance Balance Yes Dynamic Sitting Balance Dynamic Sitting-Balance Support No upper extremity supported;Feet supported Dynamic Sitting-Balance Forward lean;Lateral lean;Reaching across midline;Reaching for objects Dynamic Sitting-Sitting Surface Chair Dynamic Sitting-Level of Assistance Close supervision Dynamic Sitting-Comments for safety Dynamic Standing Balance Dynamic Standing-Balance Support Unilateral upper extremity supported Dynamic Standing-Balance Lateral lean;Forward lean;Reaching for objects;Reaching across midline Dynamic Standing-Standing Surface Floor Dynamic Standing-Level of Assistance Contact guard Dynamic Standing-Comments for safety ADL ADLS (WDL) X Grooming Grooming: Where assessed Standing at sink Grooming: Level of assistance Contact Guard Assist Grooming: Assistance with Balance;Safety LE Dressing LE Dressing: Where assessed Chair LE Dressing: Level of assistance Minimum Assist LE Dressing: Assistance with Pull up over hips;Balance;Safety Bed Mobility Bed Mobility No (NT 2/2 transferring from and back to chair) Transfers Transfer Yes Transfer 1 Transfer From 1 Sit Transfer Type 1 To and from Transfer to 1 Stand Technique 1 Sit to stand;Stand to sit Transfer Device 1 Other (comments) (Rollator) Transfer Level of Assistance 1 Contact Guard Assist Trials/Comments 1 for balance and safety\ Transfers 2 Trials/Comments 2 Pt completes functional ambulation using rollator and CGA for safety and balance. Toilet Transfers Toilet Transfers Comments NT 2/2 transferring from and back to chair Cognition Arousal/Alertness Alert Attention Span Appears intact Memory Decreased short term memory Current communication Appears Intact Orientation Oriented to person;Oriented to place;Oriented to situation Following Commands Follows one step commands with increased time Safety Judgment Decreased awareness of need for safety Awareness of Errors Assistance required to identify errors made Insight Decreased awareness of deficits Problem Solving Assistance required to identify errors made Compliance/Behavior Easy to engage Perseveration Not present Other Comments Comments Pt issued with and participated in HEP to improve/maintain B UE strength. Exercises include using soda can weight and completing movement 2 sets x 10 reps, 2-3 times per day. HEP includes elbow flexion and shoulder abduction. Pt verbalizes and demo's understanding. Daily Activity - 6 Clicks Putting on and taking off regular lower body clothing 3 Bathing 3 Toileting 3 Putting on and taking off upper body clothing 3 Personal Grooming 3 Eating Meals 4 Total Score (range 6-24) 19 Score Interpretation 40.22 Safe Environment End of Therapy Session Safe Environment End of Therapy Session Patient left in recliner;RN notified;Call light within reach;Overbed table within reach Assessment Problem List Decreased upper extremity strength;Decreased safe judgment during ADL;Decreased cognition;Decreased endurance;Decreased balance;Decreased functional mobility;Decreased ADL independence;Decreased IADL independence;Decreased UE function;Decreased trunk control for functional activities;Decreased upper extremity function Barriers to Discharge Current Mobility Status;Current ADL Status;Cognition;Decreased safety awareness;Decreased caregiver support Plan Plan Continue with current plan;If this is the last note, consider this the discharge summary Recommendation/Plan OT Recommendation Jail Facility Patient at high risk for Falls;Readmission;Injury due to decreased ability to care for self;Injury due to reduced functional status;Injury due to balance deficits;Injury due to impaired cognition;Injury at home as patient has not returned to prior level of function;Developing impaired skin integrity ;Mismanagement of medications;Cognitive decline due to decreased social participation;Prolonged dependence for self care tasks;Developing secondary complications: poor health management Recommend SNF due to Unable to safely care for self in the home;Risk of injury at home;Skilled therapy needed to address care for self in the home;Skilled therapy needed to address functional deficits;Skilled therapy needed for patient to return to prior level of independence OT Frequency during current admission 2-3x/wk Treatment/Interventions during current admission ADL/IADL retraining;Balance Training;Bed mobility;Cognitive retraining;Compensatory technique education;Endurance training;Functional mobility training;Functional activity;Functional transfer training;Strengthening;Therapeutic activity;Therapeutic exercise;Transfer training;Upper extremity motor function/functional skills Progress during current admission Progressing toward goals OT - Next Appointment 07/23/24 Time Calculation Start Time 1136 Stop Time 1200 Time Calculation (min) 24 min Multi-Disciplinary Problems (from Occupational Therapy) Active Problems Problem: Dressings Lower Extremities Start Date: 07/09/24 Goal Start Date Expected End Date End Date STG - Patient to complete lower body dressing with supervision using AE prn 07/09/24 07/23/24 -- Problem: Grooming Start Date: 07/09/24 Goal Start Date Expected End Date End Date STG - Patient will complete grooming standing at sink with min assist using wheeled walker 07/09/2410/14/24 -- Problem: Transfers Start Date: 07/09/24 Goal Start Date Expected End Date End Date STG - Patient will perform toilet transfer bed to bathroom toilet (raised prn) with supervision using wheeled walker 07/09/24 07/23/24 -- Problem: OT Misc Start Date: 07/09/24 Goal Start Date Expected End Date End Date OT LTG - Patient will be modified independent with ADLs and in room functional mobility. 07/09/24 08/06/24 -- Cosigned by Da Manriquez OT at 07/20/2024 2:08 PM CDT * Becca Wilcox MD - 07/20/2024 12:44 PM CDT Medicine Daily Progress Note Patient: Lei Rodriguez : 1960 (63 y.o.) Date of Admission: 07/07/2024 Date of Service: 07/20/24 SUBJECTIVE Interval Events: - NAEON, patient sitting in bed calmly this morning, feeling well. No complaints. Saw psychiatry this morning and during their encounter was forward thinking and doing well. - Tele with rate controlled afib since increasing metop to 75mg daily, VSS and WNL - Labs notable for Cr improvement to 1.09 from 1.66, otherwise unremarkable Plan for Today: - Cardiac/spine MRI pending - Awaiting PET spine and cardiac OBJECTIVE Vitals Most Recent: Vitals: 07/20/24 1158 BP: 109/79 Pulse: 93 Resp: Temp: SpO2: 93% 24 Hour Min/Max: Temp Min: 36.2 ??C (97.1 ??F) Max: 37.3 ??C (99.1 ??F) Pulse Min: 69 Max: 93 BP Min: 89/59 Max: 118/78 Resp Min: 16 Max: 18 SpO2 Min: 93 % Max: 98 % Intake/Output Intake/Output Summary (Last 24 hours) at 07/20/2024 1244 Last data filed at 07/20/2024 1232 Gross per 24 hour Intake 730 ml Output 0 ml Net 730 ml Current Medications Scheduled Meds: Scheduled Medications Medication Dose Route Frequency apixaban (ELIQUIS) tablet 5 mg 5 mg oral Q12H GALINA ceFAZolin (ANCEF) 2,000 mg/20 mL in sterile water (premix) 2,000 mg 2,000 mg intravenous Q8H [facility] escitalopram (LEXAPRO) tablet 10 mg 10 mg oral Daily furosemide (LASIX) tablet 40 mg 40 mg oral Daily insulin glargine (LANTUS, SEMGLEE) 100 unit/mL injection 26 Units 26 Units subcutaneous QAM insulin lispro (HumaLOG, ADMELOG) 100 unit/mL injection 0-10 Units 0-10 Units subcutaneous TID withmeals insulin lispro (HumaLOG, ADMELOG) 100 unit/mL injection 0-5 Units 0-5 Units subcutaneous Nightly insulin lispro (HumaLOG, ADMELOG) 100 unit/mL injection 9 Units 9 Units subcutaneous TID with meals levothyroxine (SYNTHROID) tablet 75 mcg 75 mcg oral Daily - 0600 magnesium oxide (MAG-OX) tablet 400 mg 400 mg oral Daily metoprolol XL (TOPROL-XL) extended release tablet 75 mg 75 mg oral Daily mirabegron ER (MYRBETRIQ) extended release tablet 25 mg 25 mg oral Daily nortriptyline (PAMELOR) capsule 10 mg 10 mg oral Nightly pantoprazole DR (PROTONIX) extended release tablet 20 mg 20 mg oral Daily sacubitriL-valsartan (ENTRESTO) 24-26 mg tablet 1 tablet 1 tablet oral BID senna-docusate (PERICOLACE) 8.6-50 mg per tablet 1 tablet 1 tablet oral BID sodium chloride 0.9% flush 0.5-20 mL 0.5-20 mL intra-catheter Q8H [facility] spironolactone (ALDACTONE) split tablet 12.5 mg 12.5 mg oral Daily Continuous Meds: Current Facility-Administered Medications Medication Dose Route Frequency Last Admin Lactated Ringer's 30 mL/hr intravenous Continuous New Bag at 07/13/24 1516 PRN Meds: PRN Medications Medication Dose Route Frequency Last Admin acetaminophen (TYLENOL) tablet 650 mg 650 mg oral Q4H PRN 650 mg at 07/20/24 0637 Carrier Fluids for Secondary Infusion - 0.9% Sodium Chloride 30 mL intravenous PRN cyclobenzaprine (FLEXERIL) tablet 5 mg 5 mg oral TID PRN 5 mg at 07/15/24 2219 dextrose gel in packet 15 g 15 g oral Q15 Min PRN Or dextrose (D10W) 10% bolus 250 mL 250 mL intravenous Q15 Min PRN glucagon injection 1 mg 1 mg intramuscular Q30 Min PRN lidocaine (LMX) 4 % cream 1 Application 1 Application topical QID PRN ondansetron ODT (ZOFRAN-ODT) disintegrating tablet 4 mg 4 mg oral Q6H PRN Or ondansetron (ZOFRAN) injection 4 mg 4 mg intravenous Q6H PRN 4 mg at 07/13/24 1728 polyethylene glycol (MIRALAX) packet 17 g 17 g oral Daily PRN ramelteon (ROZEREM) tablet 8 mg 8 mg oral Nightly PRN 8 mg at 07/14/24 2134 sodium chloride 0.9% flush 0.5-20 mL 0.5-20 mL intra-catheter PRN Physical Exam Physical Exam: Gen: No apparent distress. Resting comfortably. Cooperative. HEENT: No conjunctival pallor or injection, no icterus. No nasal discharge. Moist mucus membranes. Cardiac: Irregularly irregular rate and rhythm, normal S1/S2. No murmurs appreciated Pulm: Clear to auscultation bilaterally without crackles, wheezes, rhonchi Abdomen: Soft. No tenderness or distension. Extremity: Warm. No edema. No clubbing or cyanosis. Neuro: Alert and orientedx3. No focal deficits. Voiced understanding on reason for being in hospital, benefits from simple explanations Skin: No lesions, erythema, or skin changes. Psych: Mood appropriate. Appropriate insight. Laboratory Results Recent Results (from the past 24 hour(s)) POCT glucose Collection Time: 07/19/24 12:48 PM Result Value Ref Range Glucose, POC 222 (H) 70 - 199 mg/dL Creatinine, urine, random Collection Time: 07/19/24 12:59 PM Result Value Ref Range Creatinine Ur 70.4 mg/dL Sodium, urine, random Collection Time: 07/19/24 12:59 PM Result Value Ref Range Sodium, ur 85 mmol/L Urea nitrogen, urine, random Collection Time: 07/19/24 12:59 PM Result Value Ref Range Urea nitrogen, ur 374 mg/dL POCT glucose Collection Time: 07/19/24 5:03 PM Result Value Ref Range Glucose, POC 133 70 - 199 mg/dL POCT glucose Collection Time: 07/19/24 9:49 PM Result Value Ref Range Glucose, POC 207 (H) 70 - 199 mg/dL CBC without differential Collection Time: 07/19/24 9:57 PM Result Value Ref Range WBC 4.7 3.8 - 9.9 K/cumm Hgb 10.6 (L) 11.9 - 15.5 g/dL Hct 33.5 (L) 35.6 - 45.5 % Plt 259 150 - 400 K/cumm MPV 9.7 9.1 - 12.3 fL RBC 3.31 (L) 3.90 - 5.20 M/cumm MCV 101.2 (H) 81.3 - 96.4 fL MCH 32.0 27.1 - 33.3 pg MCHC 31.6 (L) 32.3 - 35.7 g/dL RDW CV 13.8 11.1 - 14.9 % RDW SD 51.0 (H) 35.7 - 48.1 fL NRBC abs 0.00 0.00 - 0.01 K/cumm Comprehensive metabolic panel Collection Time: 07/19/24 9:57 PM Result Value Ref Range Sodium 138 135 - 145 mmol/L Potassium, pl 5.0 (H) 3.3 - 4.9 mmol/L Chloride 98 97 - 110 mmol/L CO2 29 22 - 32 mmol/L Anion gap 11 2 - 15 mmol/L BUN 25 6 - 25 mg/dL Creatinine 1.09 0.60 - 1.10 mg/dL Glucose 192 70 - 199 mg/dL Calcium 9.3 8.5 - 10.3 mg/dL Bilirubin, total 0.2 0.1 - 1.2 mg/dL Protein, pl 7.2 6.5 - 8.5 g/dL Albumin 3.1 (L) 3.5 - 5.0 g/dL Alk phos 154 (H) 40 - 130 Units/L ALT 7 7 - 45 Units/L AST 33 10 - 45 Units/L Magnesium Collection Time: 07/19/24 9:57 PM Result Value Ref Range Magnesium 2.2 1.4 - 2.5 mg/dL eGFR Collection Time: 07/19/24 9:57 PM Result Value Ref Range eGFR 57 (L) >=60 mL/min/1.73 m2 Urinalysis reflex to microscopic and culture Urine, clean voided Collection Time: 07/20/24 7:06 AM Specimen: Urine, clean voided Result Value Ref Range Color, ur Straw Yellow Clarity, ur Clear Clear Specific gravity, ur 1.008 1.003 - 1.030 pH, urine 7.0 Protein, ur ql Negative Negative Glucose, ur ql Trace (A) Negative Ketones, ur Negative Negative Bilirubin, ur Negative Negative Blood, ur 1+ (A) Negative Urobilinogen, ur <2.0 <2.0 mg/dL Nitrite, ur Negative Negative Leukocyte esterase, ur Negative Negative UA reflex comment Reflex to microscopic UA will be performed. Urinalysis, microscopic only Collection Time: 07/20/24 7:06 AM Result Value Ref Range WBC, ur 0-5 0 - 5 /HPF RBC, ur 0-2 0 - 2 /HPF Epithelial cells, squamous, ur 1-5 0 - 5 /HPF Epithelial cells, transitional, ur 1-5 0 - 0 /HPF Bacteria, ur 1+ (A) Culture Reflex Comment Reflex conditions for urine culture (WBC >10) not met. POCT glucose Collection Time: 07/20/24 8:19 AM Result Value Ref Range Glucose, POC 170 70 - 199 mg/dL POCT glucose Collection Time: 07/20/24 12:08 PM Result Value Ref Range Glucose, POC 173 70 - 199 mg/dL Imaging Results NM MPI SPECT Single Study (Rest) for Sarcoidosis Narrative: EXAMINATION: MYOCARDIAL IMAGING (REST/SPECT-CT) DATE OF STUDY: [...] right, no appreciable arterial calcification, multilevel spondylosis. Impression: 1. Normal rest myocardial perfusion. 2. Mild left ventricular dilation and severe global hypokinesis. LVEF about 21%. Please see separate FDG PET report for evaluation of inflammation. (alexis Guerin also participated in the interpretation of this examination. Electronically signed by: Bernardino Walker M.D. ASSESSMENT & PLAN Lei Rodriguez is a 63 y.o. female with a PMHx significant for MSSA bacteremia (05/2024), A-fib,HFrEF (EF 30%), T2DM, GERD, Intellectual disability, OAB, JOSE, and hypothyroidism who presented to OSH 06/28 for back pain. Found to have + blood cx for staph aureus and CT c/f OM. Tx to [facility] for further evaluation and treatment. 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 #MSSA TV Endocarditis, recurrent, secondary to infected ICD lead #History of Vfib/VT Recent admit 05/2024 for MSSA bacteremia. Per outside hospital, TTE and GT no vegetations on valvesor on ICD wires. Treated with 4 weeks of IV Ancef ending 06/21. Review of ID notes from OSH show blood cultures remained clear on 06/13. 07/01 blood cx were drawn x2, 10/11 then second set 11/11 MSSA. Vanc+ Ancef started, Vanc d/c 07/03. 07/02 cx NGTD. Concern for lack of source control given recurrence, with potential sources including ICD, heart valves, osteomyelitis of spine given patient's back pain. Ongoing assessment throughout admission. BCx on admission 07/08/24 no growth, HIV NR. TTE 07/07/24 demonstrated echodensity on V lead of ICD, GT demonstrating vegetation on TV without vegetation on ICD, as well as thrombus in LA. ICD was interrogated showing shocks on 06/10/24 for ventricular arrhythmia, not pacer dependent. ICD removed 07/13/24. Per multidisciplinary discussion with CTS, valvular, not a candidate for angiovac or TV surgery. Potential ongoing sources include spine and wire in PA seen on repeat imaging 07/14. MRI not safe given retained wire, and wire likely to be lifetime source for recurrent infection as removal would be extremely high risk per CTS and vascular surgery. Current Plan: - Cardiac surgery, EP, ID consulted, appreciate ongoing recommendations - continue Ancef 2g Q8H x 6 weeks (07/13-08/23) then lifetime cefadroxil 1 g BID - FDG PET spine pending for osteo eval - continuous tele 07/19 - Pursuing PET FDG for spine eval as MRI not safe with wire - possibly Tuesday - Plan to remain inpatient until replacement of ICD #MARK Cr elevated to 1.66 in PM 07/18 labs. Avoided repeat blood draw during day today to avoid further agitation for patient. Urine lytes FeUrea consistent with pre- renal, suspect most likely in setting oftransient hypotension during RVR 07/18 afternoon. - UA not consistent with UTI - Continue to monitor #Hx of intellectual disability/developmental delay #Agitation #Concern for suicidality Sister Dilia currently takes care of patient, other sister Peg assists. Both discuss pt medical decisions together. Patient is not consentable - As in interval history 07/18, patient expressed sentiments of preferring to over remaining in hospital. Per assessment by primary team, not felt to be actively suicidal at this time, deferred sitter - Psychiatry consulted, appreciate further recommendations. Haldol 2 mg PRN for agitation, avoid further benzos due to concern of delirium #HFrEF - compensated EF of 30% on 05/2024 echocardiogram, mild-mod MR, RVSP 42 mild-mod TR. On chart review, patient hadHFrEF dating back to at least 2016, though etiology of this not clearly established. Current GDMT includes metoprolol, Entresto 24-26 BID, furosemide 40 daily - Not on Farxiga due to recurrent UTI - Initiated spironolactone 12.5 mg 07/09 - CTA coronary obtained 07/16 without evidence of CAD (calcium score 0) - Cardiac PET (sarcoid protocol) ordered, has yet to be completed #Persistent atrial fibrillation #MAULIK Thrombus In AFib on admission. Previously on Tikosyn, however, taken off of Tikosyn after admission for MSSA, and was continued on Xarelto for AC and Coreg for rate control in May. GT in May 2024 performed to eval for endocarditis showed LA thrombus; had been on Xarelto at the time per chart review. At OSH just prior to this admission, patient had RVR and received dual tim blockade with dilt and metoprolol, stopped dilt 2/2 reduced EF and continued on metoprolol . - anticoagulation: heparin gtt -> Eliquis 07/14 - rate control with metoprolol given recent Afib RVR - Given RVR 07/18 in setting of acute agitation, s/p metoprolol 5 with improvement, will increase metoprolol to 75 mg daily #T2DM Home regimen: glargine 18u; Lispro 10 TID + SSI. A1c here 7.7 on 07/07/24. - Currently on Lantus 26 and mealtime 9 TID + HDSSI given hyperglycemia - POC glucose TIDAC #Anemia: Hgb 10.8 on arrival. Bl: 11-12. MCV elevated. B12 > 1000 at OSH, Folate wnl. CTM #Recurrent UTI #OAB Per family, has been treated multiple times recently for UTIs. Her symptoms are not urinary in nature, her symptoms typically are becoming delirious and belligerent. UA at outside hospital with 0-5 WBC, 3+ nitrate. Cx was performed which showed >100,000 colonies E coli. Given recurrence of events, would consider colonization versus recurrent UTI. - Did not treat given favoring colonization over UTI without specific symptoms, ongoing symptoms more likely attributed to bacteremia - Given ongoing concerns with family surrounding possible UTI, UA 07/19 negative - Home Vibegron 75 --> change to Mirabegron for formulary #Hypothyroidism: Synthroid 75mcg, TSH 2.8 #Depression: Continue Lexapro 10, nortriptyline 10 #GERD: Pantoprazole 20 #Constipation: Senna-Docusate BID #JOSE: ordered CPAP, pt reportedly intermittently compliant at home Code Status: Full Code Disposition: pending Best contact: Primary Emergency Contact: Dilia Moise Diet: Adult Diet Restricted; 2 GM Sodium, Low Fat, Low Chol VTE Prophylaxis: Eliquis 5 BID PT: PT Recommendation/Plan: Jail Facility OT:OT Recommendation: Jail Facility Becca Wilcox MD Internal Medicine Resident Physician, PGY-2 07/20/2024 12:50 PM Cosigned by Russ Pride MD at 07/20/2024 6:04 PM CDT Associated attestation - Russ Pride MD - 07/20/2024 6:04 PM CDT I have seen and examined the patient on 07/20/24. I agree with the findings and plan of care as documented in Dr. Wilcox's note. History: Stable, PAULINE. Complains of persistent back pain. PE: VSS. CV/pulm exam unchanged. Mental status calmer. I have personally reviewed the following lab data: Creat 1.09, Na 138, Hb 10.6 Impression: 1. TV endocarditis with MSSA bacteremia 2. VT/VF s/p ICD removal due to concern for infection 3. Chronic systolic HF 4. Persistent AF with intermittent RVR 5. Other problems as per resident. Plan: 1. Continue current therapy 2. PT/OT; increase activity as tolerated 3. PET Tuesday 4. Reimplant PM/ICD after completion of course of IV abx 5. Other plans as per resident. Medical Decision Making: Medical complexity: Moderate to high Risk: Moderate to high Level of medical decision-making: Moderate to high Management was discussed with the patient and team and all questions were addressed. Russ Pride MD pss delivery professional Date of note: 07/20/24. * Valentina Brown MD - 07/19/2024 5:33 PM CDT Medicine Daily Progress Note Patient: Lei Rodriguez : 1960 (63 y.o.) Date of Admission: 07/07/2024 Date of Service: 07/19/24 SUBJECTIVE Interval Events: - This AM patient calmer, sitting up on edge of bed, states feeling slightly shaky, denies any problems with breathing, chest pain, pain elsewhere. Seen later in the morning sleeping in bed, arousingfor brief questions but sleepy. Revisited in afternoon after transfer to upstairs unit, more alert,wondering if her walker was moved up from downstairs, states prefers this room over the prior - Was in RVR up to 145 this AM prior to getting metoprolol succinate 75 (increased dose today afterRVR on 10/9), rate controlled after receiving this - Cr up to 1.66 today - Psych consulted yesterday, initially recommending Klonopin 0.5 mg BID to help with calming nerves. Today saw patient twice today, on their exams very sleepy and appears disoriented, states year 1942 and unaware of name of hospital Plan for Today: - Obtain urine lytes - Cr 70, Na 85, urea nitrogen 374. FeNa 1.5%, FeUrea 34%. UA ordered, not yet collected - Cardiac/spine MRI pending - Adjusting psych meds per recs - d/c Klonopin scheduled given concern for delirium, Haldol 2 mg PRN, avoid Ativan due to concern for delirium OBJECTIVE Vitals Most Recent: Vitals: 07/19/24 1600 BP: Pulse: 92 Resp: Temp: SpO2: 24 Hour Min/Max: Temp Min: 36.2 ??C (97.1 ??F) Max: 36.8 ??C (98.2 ??F) Pulse Min: 80 Max: 104 BP Min: 97/50 Max: 115/84 Resp Min: 16 Max: 20 SpO2 Min: 97 % Max: 99 % Intake/Output Intake/Output Summary (Last 24 hours) at 07/19/2024 1733 Last data filed at 07/19/2024 1015 Gross per 24 hour Intake 680 ml Output -- Net 680 ml Current Medications Scheduled Meds: Scheduled Medications Medication Dose Route Frequency apixaban (ELIQUIS) tablet 5 mg 5 mg oral Q12H [facility] ceFAZolin (ANCEF) 2,000 mg/20 mL in sterile water (premix) 2,000 mg 2,000 mg intravenous Q8H [facility] escitalopram (LEXAPRO) tablet 10 mg 10 mg oral Daily furosemide (LASIX) tablet 40 mg 40 mg oral Daily insulin glargine (LANTUS, SEMGLEE) 100 unit/mL injection 26 Units 26 Units subcutaneous QAM insulin lispro (HumaLOG, ADMELOG) 100 unit/mL injection 0-10 Units 0-10 Units subcutaneous TID withmeals insulin lispro (HumaLOG, ADMELOG) 100 unit/mL injection 0-5 Units 0-5 Units subcutaneous Nightly insulin lispro (HumaLOG, ADMELOG) 100 unit/mL injection 9 Units 9 Units subcutaneous TID with meals levothyroxine (SYNTHROID) tablet 75 mcg 75 mcg oral Daily - 0600 magnesium oxide (MAG-OX) tablet 400 mg 400 mg oral Daily metoprolol XL (TOPROL-XL) extended release tablet 75 mg 75 mg oral Daily mirabegron ER (MYRBETRIQ) extended release tablet 25 mg 25 mg oral Daily [START ON 07/20/2024] nortriptyline (PAMELOR) capsule 10 mg 10 mg oral Nightly pantoprazole DR (PROTONIX) extended release tablet 20 mg 20 mg oral Daily sacubitriL-valsartan (ENTRESTO) 24-26 mg tablet 1 tablet 1 tablet oral BID senna-docusate (PERICOLACE) 8.6-50 mg per tablet 1 tablet 1 tablet oral BID sodium chloride 0.9% flush 0.5-20 mL 0.5-20 mL intra-catheter Q8H GALINA spironolactone (ALDACTONE) split tablet 12.5 mg 12.5 mg oral Daily Continuous Meds: Current Facility-Administered Medications Medication Dose Route Frequency Last Admin Lactated Ringer's 30 mL/hr intravenous Continuous New Bag at 07/13/24 1516 PRN Meds: PRN Medications Medication Dose Route Frequency Last Admin acetaminophen (TYLENOL) tablet 650 mg 650 mg oral Q4H PRN 650 mg at 07/18/242051 Carrier Fluids for Secondary Infusion - 0.9% Sodium Chloride 30 mL intravenous PRN cyclobenzaprine (FLEXERIL) tablet 5 mg 5 mg oral TID PRN 5 mg at 07/15/24 2219 dextrose gel in packet 15 g 15 g oral Q15 Min PRN Or dextrose (D10W) 10% bolus 250 mL 250 mL intravenous Q15 Min PRN glucagon injection 1 mg 1 mg intramuscular Q30 Min PRN lidocaine (LMX) 4 % cream 1 Application 1 Application topical QID PRN ondansetron ODT (ZOFRAN-ODT) disintegrating tablet 4 mg 4 mg oral Q6H PRN Or ondansetron (ZOFRAN) injection 4 mg 4 mg intravenous Q6H PRN 4 mg at 07/13/24 1728 polyethylene glycol (MIRALAX) packet 17 g 17 g oral Daily PRN ramelteon (ROZEREM) tablet 8 mg 8 mg oral Nightly PRN 8 mg at 07/14/24 2134 sodium chloride 0.9% flush 0.5-20 mL 0.5-20 mL intra-catheter PRN Physical Exam Physical Exam: Gen: No apparent distress. Resting comfortably. Cooperative. HEENT: No conjunctival pallor or injection, no icterus. No nasal discharge. Moist mucus membranes. Cardiac: Irregularly irregular rate and rhythm, normal S1/S2. No murmurs appreciated Pulm: Clear to auscultation bilaterally without crackles, wheezes, rhonchi Abdomen: Soft. No tenderness or distension. Extremity: Warm. No edema. No clubbing or cyanosis. Neuro: Alert and orientedx3. No focal deficits. Voiced understanding on reason for being in hospital, benefits from simple explanations Skin: No lesions, erythema, or skin changes. Psych: Mood appropriate. Appropriate insight. Laboratory Results Recent Results (from the past 24 hour(s)) POCT glucose Collection Time: 07/18/24 8:17 PM Result Value Ref Range Glucose, POC 304 (H) 70 - 199 mg/dL CBC without differential Collection Time: 07/18/24 9:07 PM Result Value Ref Range WBC 5.3 3.8 - 9.9 K/cumm Hgb 11.4 (L) 11.9 - 15.5 g/dL Hct 35.5 (L) 35.6 - 45.5 % Plt 257 150 - 400 K/cumm MPV 9.8 9.1 - 12.3 fL RBC 3.50 (L) 3.90 - 5.20 M/cumm MCV 101.4 (H) 81.3 - 96.4 fL MCH 32.6 27.1 - 33.3 pg MCHC 32.1 (L) 32.3 - 35.7 g/dL RDW CV 13.8 11.1 - 14.9 % RDW SD 51.6 (H) 35.7 - 48.1 fL NRBC abs 0.00 0.00 - 0.01 K/cumm Comprehensive metabolic panel Collection Time: 07/18/24 9:07 PM Result Value Ref Range Sodium 131 (L) 135 - 145 mmol/L Potassium, pl 4.5 3.3 - 4.9 mmol/L Chloride 95 (L) 97 - 110 mmol/L CO2 28 22 - 32 mmol/L Anion gap 8 2 - 15 mmol/L BUN 26 (H) 6 - 25 mg/dL Creatinine 1.66 (H) 0.60 - 1.10 mg/dL Glucose 251 (H) 70 - 199 mg/dL Calcium 9.6 8.5 - 10.3 mg/dL Bilirubin, total 0.3 0.1 - 1.2 mg/dL Protein, pl 7.8 6.5 - 8.5 g/dL Albumin 3.5 3.5 - 5.0 g/dL Alk phos 165 (H) 40 - 130 Units/L ALT 9 7 - 45 Units/L AST 30 10 - 45 Units/L Magnesium Collection Time: 07/18/24 9:07 PM Result Value Ref Range Magnesium 2.0 1.4 - 2.5 mg/dL eGFR Collection Time: 07/18/24 9:07 PM Result Value Ref Range eGFR 35 (L) >=60 mL/min/1.73 m2 Differential, auto Collection Time: 07/18/24 9:07 PM Result Value Ref Range Neutrophil abs 3.5 1.5 - 6.5 K/cumm Imm gran abs 0.1 0.0 - 0.1 K/cumm Lymphocyte abs 1.0 0.8 - 3.3 K/cumm Monocyte abs 0.7 0.2 - 0.8 K/cumm Eosinophil abs 0.2 0.0 - 0.5 K/cumm Basophil abs 0.1 0.0 - 0.1 K/cumm Neutrophil pct 63.5 % Imm gran pct 1.5 % Lymphocyte pct 18.2 % Monocyte pct 12.2 % Eosinophil pct 3.5 % Basophil pct 1.1 % CBC with auto differential Collection Time: 07/18/24 9:07 PM Result Value Ref Range WBC 5.3 3.8 - 9.9 K/cumm Hgb 11.4 (L) 11.9 - 15.5 g/dL Hct 35.5 (L) 35.6 - 45.5 % Plt 257 150 - 400 K/cumm MPV 9.8 9.1 - 12.3 fL RBC 3.50 (L) 3.90 - 5.20 M/cumm MCV 101.4 (H) 81.3 - 96.4 fL MCH 32.6 27.1 - 33.3 pg MCHC 32.1 (L) 32.3 - 35.7 g/dL RDW CV 13.8 11.1 - 14.9 % RDW SD 51.6 (H) 35.7 - 48.1 fL NRBC abs 0.00 0.00 - 0.01 K/cumm POCT glucose Collection Time: 07/19/24 12:11 PM Result Value Ref Range Glucose, POC 179 70 - 199 mg/dL POCT glucose Collection Time: 07/19/24 12:48 PM Result Value Ref Range Glucose, POC 222 (H) 70 - 199 mg/dL Creatinine, urine, random Collection Time: 07/19/24 12:59 PM Result Value Ref Range Creatinine Ur 70.4 mg/dL Sodium, urine, random Collection Time: 07/19/24 12:59 PM Result Value Ref Range Sodium, ur 85 mmol/L Urea nitrogen, urine, random Collection Time: 07/19/24 12:59 PM Result Value Ref Range Urea nitrogen, ur 374 mg/dL POCT glucose Collection Time: 07/19/24 5:03 PM Result Value Ref Range Glucose, POC 133 70 - 199 mg/dL Imaging Results NM MPI SPECT Single Study (Rest) for Sarcoidosis Narrative: EXAMINATION: MYOCARDIAL IMAGING (REST/SPECT-CT) DATE OF STUDY: [...] right, no appreciable arterial calcification, multilevel spondylosis. Impression: 1. Normal rest myocardial perfusion. 2. Mild left ventricular dilation and severe global hypokinesis. LVEF about 21%. Please see separate FDG PET report for evaluation of inflammation. (alexis Guerin also participated in the interpretation of this examination. Electronically signed by: Bernardino Walker M.D. ASSESSMENT & PLAN Lei Rodriguez is a 63 y.o. female with a PMHx significant for MSSA bacteremia (05/2024), A-fib,HFrEF (EF 30%), T2DM, GERD, Intellectual disability, OAB, JOSE, and hypothyroidism who presented to OSH 06/28 for back pain. Found to have + blood cx for staph aureus and CT c/f OM. Tx to [facility] for further evaluation and treatment. 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 #MSSA TV Endocarditis, recurrent, secondary to infected ICD lead #History of Vfib/VT Recent admit 05/2024 for MSSA bacteremia. Per outside hospital, TTE and GT no vegetations on valvesor on ICD wires. Treated with 4 weeks of IV Ancef ending 06/21. Review of ID notes from OSH show blood cultures remained clear on 06/13. 07/01 blood cx were drawn x2, 10/11 then second set / MSSA. Vanc+ Ancef started, Vanc d/c 07/03. 07/02 cx NGTD. Concern for lack of source control given recurrence, with potential sources including ICD, heart valves, osteomyelitis of spine given patient's back pain. Ongoing assessment throughout admission. BCx on admission 07/08/24 no growth, HIV NR. TTE 07/07/24 demonstrated echodensity on V lead of ICD, GT demonstrating vegetation on TV without vegetation on ICD, as well as thrombus in LA. ICD was interrogated showing shocks on 06/10/24 for ventricular arrhythmia, not pacer dependent. ICD removed 07/13/24. Per multidisciplinary discussion with CTS, valvular, not a candidate for angiovac or TV surgery. Potential ongoing sources include spine and wire in PA seen on repeat imaging 07/14. MRI not safe given retained wire, and wire likely to be lifetime source for recurrent infection as removal would be extremely high risk per CTS and vascular surgery. Current Plan: - Cardiac surgery, EP, ID consulted, appreciate ongoing recommendations - continue Ancef 2g Q8H x 6 weeks (07/13-08/23) then lifetime cefadroxil 1 g BID - FDG PET spine pending for osteo eval - continuous tele 07/19 - Pursuing PET FDG for spine eval as MRI not safe with wire - possibly Tuesday - Plan to remain inpatient until replacement of ICD #MARK Cr elevated to 1.66 in PM 07/18 labs. Avoided repeat blood draw during day today to avoid further agitation for patient. Urine lytes FeUrea consistent with pre- renal, suspect most likely in setting oftransient hypotension during RVR 07/18 afternoon. - UA pending - Continue to monitor #Hx of intellectual disability/developmental delay #Agitation #Concern for suicidality Sister Dilia currently takes care of patient, other sister Peg assists. Both discuss pt medical decisions together. Patient is not consentable - As in interval history 07/18, patient expressed sentiments of preferring to over remaining in hospital. Per assessment by primary team, not felt to be actively suicidal at this time, deferred sitter - Psychiatry consulted, appreciate further recommendations. Haldol 2 mg PRN for agitation, avoid further benzos due to concern of delirium #HFrEF - compensated EF of 30% on 05/2024 echocardiogram, mild-mod MR, RVSP 42 mild-mod TR. On chart review, patient hadHFrEF dating back to at least 2016, though etiology of this not clearly established. Current GDMT includes metoprolol, Entresto 24-26 BID, furosemide 40 daily - Not on Farxiga due to recurrent UTI - Initiated spironolactone 12.5 mg 07/09 - CTA coronary obtained 07/16 without evidence of CAD (calcium score 0) - Cardiac PET (sarcoid protocol) ordered 07/16 for further nonischemic cardiomyopathy eval given recent VT, pending #Persistent atrial fibrillation #MALUIK Thrombus In AFib on admission. Previously on Tikosyn, however, taken off of Tikosyn after admission for MSSA, and was continued on Xarelto for AC and Coreg for rate control in May. GT in May 2024 performed to eval for endocarditis showed LA thrombus; had been on Xarelto at the time per chart review. At OSH just prior to this admission, patient had RVR and received dual tim blockade with dilt and metoprolol, stopped dilt 2/2 reduced EF and continued on metoprolol . - anticoagulation: heparin gtt -> Eliquis 07/14 - rate control with metoprolol given recent Afib RVR - Given RVR 07/18 in setting of acute agitation, s/p metoprolol 5 with improvement, will increase metoprolol to 75 mg daily #T2DM Home regimen: glargine 18u; Lispro 10 TID + SSI. A1c here 7.7 on 07/07/24. - Currently on Lantus 22 and mealtime 9 TID + HDSSI given hyperglycemia - POC glucose TIDAC #Anemia: Hgb 10.8 on arrival. Bl: 11-12. MCV elevated. B12 > 1000 at OSH, Folate wnl. CTM #Recurrent UTI #OAB Per family, has been treated multiple times recently for UTIs. Her symptoms are not urinary in nature, her symptoms typically are becoming delirious and belligerent. UA at outside hospital with 0-5 WBC, 3+ nitrate. Cx was performed which showed >100,000 colonies E coli. Given recurrence of events, would consider colonization versus recurrent UTI. - Did not treat given favoring colonization over UTI without specific symptoms, ongoing symptoms more likely attributed to bacteremia - Given ongoing concerns with family surrounding possible UTI, ordered culture 07/10, pending - Home Vibegron 75 --> change to Mirabegron for formulary #Hypothyroidism: Synthroid 75mcg, TSH 2.8 #Depression: Continue Lexapro 10, nortriptyline 10 #GERD: Pantoprazole 20 #Constipation: Senna-Docusate BID #JOSE: ordered CPAP, pt reportedly intermittently compliant at home Code Status: Full Code Disposition: pending Best contact: Primary Emergency Contact: Dilia Moise Diet: Adult Diet Restricted; 2 GM Sodium, Low Fat, Low Chol VTE Prophylaxis: Eliquis 5 BID PT: PT Recommendation/Plan: Jail Facility OT:OT Recommendation: Jail Facility Valentina Brown MD PGY-1 Internal Medicine Cosigned by Russ Pride MD at 07/20/2024 5:59 PM CDT Associated attestation - Russ Pride MD - 07/20/2024 5:59 PM CDT I have seen and examined the patient on 07/19/24. I agree with the findings and plan of care as documented in Dr. Brown's note. History: Intermittent AF with RVR apparently associated with agitation/anxiety likely precipitated in part by stress of prolonged hospitalization PE: VSS. CV/pulm exam unchanged. I have personally reviewed the following lab data: Creat 1.66, Na 131, Hb 11.4 Impression: 1. TV endocarditis with MSSA bacteremia 2. VT/VF s/p ICD removal due to concern for infection 3. Chronic systolic HF 4. Persistent AF with intermittent RVR 5. Possible MARK (vs lab error) 6. Other problems as per resident. Plan: 1. Continue current therapy 2. Clonazepam added for anxiety/agitation 3. PET Tuesday 4. Reimplant PM/ICD after completion of course of IV abx 5. Other plans as per resident. Medical Decision Making: Medical complexity: Moderate to high Risk: Moderate to high Level of medical decision-making: Moderate to high Management was discussed with the patient and team and all questions were addressed. Russ Pride MD pss delivery professional Date of note: 07/20/24. * Amberly Neri, LUCINA-Darlene - 07/18/2024 4:34 PM CDT Inpatient Cardiac Rehabilitation Verbal/Visual Assessment Session Type: Treatment Family/Caregiver present: no Chart Reviewed: yes Orientation: x4 Patient Goals For Exercise: getting up and walking Patient Concerns With Exercise: none Pain Level Prior to Exercise (1-10): 0 Exercise Capacity Assessment Exercise Tolerance: moderate Mode of Exercise: ambulation Volume of Exercise: 15 minutes Exercise/Activity: Volume & Endurance Supine to EOB SBA Ambulation 10 minutes, 55 ft. RPE/Intensity of Exercise (Timmy 6-20 scale): 9 Dyspnea (Modified Timmy 1-10): 0 Assistive Device/Apparatus Used: gait belt & walker Exercise Tolerance Comments: patient felt no signs of fatigue or SOB when ambulating Plan Of Care Anticipated Goals: walk out of here when discharged Planned Interventions: exercise and ambulation Treatment Progression: progressing well Other Assembly Machine Feeder Comments: Patient expressed that she did not want to be here in the hospital and wanted to go home but after educating patient about the positives of getting up and movingfrom the bed. Patient was more open to working with me. It's a pleasure to work with this patient. Please reach out with any questions. Amberly Neri M.S., [facility] EP-C Certified Assembly Machine Feeder [id number] [email or web address] * Valentina Brown MD - 07/18/2024 7:17 AM CDT Medicine Daily Progress Note Patient: Lei Rodriguez : 1960 (63 y.o.) Date of Admission: 07/07/2024 Date of Service: 07/18/24 SUBJECTIVE Interval Events: - No acute events overnight - Yesterday completed SPECT portion of sarcoid workup, normal at rest, EF 21% - Tele rate controlled afib - Vitals within normal limits - Patient tearful yesterday afternoon when discussing tests, stating she was tired of all the testing. Overnight, tearful, stating she doesn't want a pacemaker, wants to go to [facility] - This morning, mood improved. Patient denies significant complaints. States does not like the hospital but denies any acute concerns or anything to improve her in hospital experience - This afternoon, patient agitated and tearful once again reportedly set off by concerns about her lunch. Threw items around room including lunch tray, medications, soda cans. Pulling telemetry box, swatting at nursing and tech staff. Provider came to bedside and saw patient at this time, was then sitting in bed tearful, non-violent. Called her sister on the phone and she made statements repeatedly about wanting to return home. When sister made comments to say but you have to stay here to liveand get better she said I dont want that I just want to go home, just let me , I want to go home When told she has to stay for her pacemaker, she states I don't want no pacemaker. When told she would need this to keep her heart beating, she said then I want it to stop. Continued to repeatthe above sentiments, very tearful. Due to above concerns, concern for suicidal ideation, and patient was placed on 1:1 sitter. Patient grew increasingly agitated, cursing at sitter. When revisited, patient was standing behind her recliner, stating she wanted the sitter removed and promising to behave better. When informed that the sitter was needed because we were concerned she might hurt herself, she said I won't I won't, I'll be good, I didn't mean it I just want to go home. Patient was then found to be in afib with RVR into 150s-160s on telemetry, agitated, sweating. Gave IV metoprolol 5. Given continuing to refuse care and agitation, also gave IM Zyprexa 5, calmer, but still distraught over sitter. Psychiatry consulted, patient refused to be interviewed, but sisters endorsed they did not believe she was suicidal. Given combination of above events, not concerned for acute suicidality and removed sitter. Given significant agitation and repeated anxiety of patient over past few days, initiated Klonopin 0.5 mg BID for assistance in calming patient nerves Plan for Today: - PET for sarcoid and spine assessment pending - Called cardiology office, obtained records, no source of wire in paper records. Left VM, will call again today to try to speak with provider OBJECTIVE Vitals Most Recent: Vitals: 07/18/24 0330 BP: 96/62 Pulse: 103 Resp: 18 Temp: 36.6 ??C (97.8 ??F) SpO2: 96% 24 Hour Min/Max: Temp Min: 36.6 ??C (97.8 ??F) Max: 36.8 ??C (98.2 ??F) Pulse Min: 90 Max: 104 BP Min: 96/62 Max: 146/80 Resp Min: 17 Max: 18 SpO2 Min: 91 % Max: 98 % Intake/Output Intake/Output Summary (Last 24 hours) at 07/18/2024 0718 Last data filed at 07/17/2024 2040 Gross per 24 hour Intake 240 ml Output -- Net 240 ml Current Medications Scheduled Meds: Scheduled Medications Medication Dose Route Frequency apixaban (ELIQUIS) tablet 5 mg 5 mg oral Q12H [facility] ceFAZolin (ANCEF) 2,000 mg/20 mL in sterile water (premix) 2,000 mg 2,000 mg intravenous Q8H [facility] escitalopram (LEXAPRO) tablet 10 mg 10 mg oral Daily furosemide (LASIX) tablet 40 mg 40 mg oral Daily insulin glargine (LANTUS, SEMGLEE) 100 unit/mL injection 22 Units 22 Units subcutaneous QAM insulin lispro (HumaLOG, ADMELOG) 100 unit/mL injection 0-10 Units 0-10 Units subcutaneous TID withmeals insulin lispro (HumaLOG, ADMELOG) 100 unit/mL injection 0-5 Units 0-5 Units subcutaneous Nightly insulin lispro (HumaLOG, ADMELOG) 100 unit/mL injection 9 Units 9 Units subcutaneous TID with meals levothyroxine (SYNTHROID) tablet 75 mcg 75 mcg oral Daily - 0600 magnesium oxide (MAG-OX) tablet 400 mg 400 mg oral Daily metoprolol XL (TOPROL-XL) extended release tablet 50 mg 50 mg oral Daily mirabegron ER (MYRBETRIQ) extended release tablet 25 mg 25 mg oral Daily nortriptyline (PAMELOR) capsule 10 mg 10 [address] oral Daily [address] (PROTONIX) extended release tablet 20 mg 20 mg oral Daily sacubitriL-valsartan (ENTRESTO) 24-26 mg tablet 1 tablet 1 tablet oral BID senna-docusate (PERICOLACE) 8.6-50 mg per tablet 1 tablet 1 tablet oral BID sodium chloride 0.9% flush 0.5-20 mL 0.5-20 mL intra-catheter Q8H G[facility]INA spironolactone (ALDACTONE) split tablet 12.5 mg 12.5 mg oral Daily Continuous Meds: Current Facility-Administered Medications Medication Dose Route Frequency Last Admin Lactated Ringer's 30 mL/hr intravenous Continuous New Bag at 07/13/24 1516 PRN Meds: PRN Medications Medication Dose Route Frequency Last Admin acetaminophen (TYLENOL) tablet 650 mg 650 mg oral Q4H PRN 650 mg at 07/18/24 0159 Carrier Fluids for Secondary Infusion - 0.9% Sodium Chloride 30 mL intravenous PRN cyclobenzaprine (FLEXERIL) tablet 5 mg 5 mg oral TID PRN 5 mg at 07/15/24 2219 dextrose gel in packet 15 g 15 g oral Q15 Min PRN Or dextrose (D10W) 10% bolus 250 mL 250 mL intravenous Q15 Min PRN glucagon injection 1 mg 1 mg intramuscular Q30 Min PRN lidocaine (LMX) 4 % cream 1 Application 1 Application topical QID PRN ondansetron ODT (ZOFRAN-ODT) disintegrating tablet 4 mg 4 mg oral Q6H PRN Or ondansetron (ZOFRAN) injection 4 mg 4 mg intravenous Q6H PRN 4 mg at 07/13/24 1728 polyethylene glycol (MIRALAX) packet 17 g 17 g oral Daily PRN ramelteon (ROZEREM) tablet 8 mg 8 mg oral Nightly PRN 8 mg at 07/14/24 2134 sodium chloride 0.9% flush 0.5-20 mL 0.5-20 mL intra-catheter PRN Physical Exam Physical Exam: Gen: No apparent distress. Resting comfortably. Cooperative. HEENT: No conjunctival pallor or injection, no icterus. No nasal discharge. Moist mucus membranes. Cardiac: Irregularly irregular rate and rhythm, normal S1/S2. No murmurs appreciated Pulm: Clear to auscultation bilaterally without crackles, wheezes, rhonchi Abdomen: Soft. No tenderness or distension. Extremity: Warm. No edema. No clubbing or cyanosis. Neuro: Alert and orientedx3. No focal deficits. Voiced understanding on reason for being in hospital, benefits from simple explanations Skin: No lesions, erythema, or skin changes. Psych: Mood appropriate. Appropriate insight. Laboratory Results Recent Results (from the past 24 hour(s)) POCT glucose Collection Time: 07/17/24 7:45 AM Result Value Ref Range Glucose, POC 184 70 - 199 mg/dL POCT glucose Collection Time: 07/17/24 11:27 AM Result Value Ref Range Glucose, POC 233 (H) 70 - 199 mg/dL POCT glucose Collection Time: 07/17/24 4:48 PM Result Value Ref Range Glucose, POC 155 70 - 199 mg/dL POCT glucose Collection Time: 07/17/24 9:04 PM Result Value Ref Range Glucose, POC 311 (H) 70 - 199 mg/dL CBC without differential Collection Time: 07/17/24 9:17 PM Result Value Ref Range WBC 4.5 3.8 - 9.9 K/cumm Hgb 11.1 (L) 11.9 - 15.5 g/dL Hct 34.5 (L) 35.6 - 45.5 % Plt 228 150 - 400 K/cumm MPV 10.0 9.1 - 12.3 fL RBC 3.48 (L) 3.90 - 5.20 M/cumm MCV 99.1 (H) 81.3 - 96.4 fL MCH 31.9 27.1 - 33.3 pg MCHC 32.2 (L) 32.3 - 35.7 g/dL RDW CV 13.9 11.1 - 14.9 % RDW SD 50.4 (H) 35.7 - 48.1 fL NRBC abs 0.00 0.00 - 0.01 K/cumm Comprehensive metabolic panel Collection Time: 07/17/24 9:17 PM Result Value Ref Range Sodium 133 (L) 135 - 145 mmol/L Potassium, pl 3.9 3.3 - 4.9 mmol/L Chloride 95 (L) 97 - 110 mmol/L CO2 31 22 - 32 mmol/L Anion gap 7 2 - 15 mmol/L BUN 19 6 - 25 mg/dL Creatinine 0.89 0.60 - 1.10 mg/dL Glucose 298 (H) 70 - 199 mg/dL Calcium 9.1 8.5 - 10.3 mg/dL Bilirubin, total 0.3 0.1 - 1.2 mg/dL Protein, pl 7.2 6.5 - 8.5 g/dL Albumin 3.2 (L) 3.5 - 5.0 g/dL Alk phos 138 (H) 40 - 130 Units/L ALT 6 (L) 7 - 45 Units/L AST 19 10 - 45 Units/L Magnesium Collection Time: 07/17/24 9:17 PM Result Value Ref Range Magnesium 1.8 1.4 - 2.5 mg/dL eGFR Collection Time: 07/17/24 9:17 PM Result Value Ref Range eGFR 73 >=60 mL/min/1.73 m2 Imaging Results NM MPI SPECT Single Study (Rest) for Sarcoidosis Narrative: EXAMINATION: MYOCARDIAL IMAGING (REST/SPECT-CT) DATE OF STUDY: [...] right, no appreciable arterial calcification, multilevel spondylosis. Impression: 1. Normal rest myocardial perfusion. 2. Mild left ventricular dilation and severe global hypokinesis. LVEF about 21%. Please see separate FDG PET report for evaluation of inflammation. (s)Yoanna Guerin also participated in the interpretation of this examination. Electronically signed by: Bernardino Walker M.D. ASSESSMENT & PLAN Lei Rodriguez is a 63 y.o. female with a PMHx significant for MSSA bacteremia (05/2024), A-fib,HFrEF (EF 30%), T2DM, GERD, Intellectual disability, OAB, JOSE, and hypothyroidism who presented to OSH 06/28 for back pain. Found to have + blood cx for staph aureus and CT c/f OM. Tx to [facility] for further evaluation and treatment. 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 #MSSA TV Endocarditis, recurrent, secondary to infected ICD lead #History of Vfib/VT Recent admit 05/2024 for MSSA bacteremia. Per outside hospital, TTE and GT no vegetations on valvesor on ICD wires. Treated with 4 weeks of IV Ancef ending 06/21. Review of ID notes from OSH show blood cultures remained clear on 06/13. 07/01 blood cx were drawn x2, 10/11 then second set /2 MSSA. Vanc+ Ancef started, Vanc d/c 07/03. 07/02 cx NGTD. Concern for lack of source control given recurrence, with potential sources including ICD, heart valves, osteomyelitis of spine given patient's back pain. Ongoing assessment throughout admission. BCx on admission 07/08/24 no growth, HIV NR. TTE 07/07/24 demonstrated echodensity on V lead of ICD, GT demonstrating vegetation on TV without vegetation on ICD, as well as thrombus in LA. ICD was interrogated showing shocks on 06/10/24 for ventricular arrhythmia, not pacer dependent. ICD removed 07/13/24. Per multidisciplinary discussion with CTS, valvular, not a candidate for angiovac or TV surgery. Potential ongoing sources include spine and wire in PA seen on repeat imaging 07/14. MRI not safe given retained wire, and wire likely to be lifetime source for recurrent infection as removal would be extremely high risk per CTS and vascular surgery. Current Plan: - Cardiac surgery, EP, ID consulted, appreciate ongoing recommendations - continue Ancef 2g Q8H x 6 weeks (07/13-08/23) then lifetime cefadroxil 1 g BID - FDG PET spine pending for osteo eval - continuous tele 07/18 - Pursuing PET FDG for spine eval as MRI not safe with wire - Plan to remain inpatient until replacement of ICD #Hx of intellectual disability/developmental delay #Agitation #Concern for suicidality Sister Dilia currently takes care of patient, other sister Peg assists. Both discuss pt medical decisions together. Patient is not consentable - As in interval history 07/18, patient expressed sentiments of preferring to over remaining in hospital. Per assessment by primary team, not felt to be actively suicidal at this time, deferred sitter - Psychiatry consulted, appreciate further recommendations. Full recommendations pending, but will plan Klonopin 0.5 mg BID + Haldol 5 as PRN #HFrEF - compensated EF of 30% on 05/2024 echocardiogram, mild-mod MR, RVSP 42 mild-mod TR. On chart review, patient hadHFrEF dating back to at least 2016, though etiology of this not clearly established. Current GDMT includes metoprolol, Entresto 24-26 BID, furosemide 40 daily - Not on Farxiga due to recurrent UTI - Initiated spironolactone 12.5 mg 07/09 - CTA coronary obtained 07/16 without evidence of CAD (calcium score 0) - Cardiac PET (sarcoid protocol) ordered 07/16 for further nonischemic cardiomyopathy eval given recent VT, pending #Persistent atrial fibrillation #MAULIK Thrombus In AFib on admission. Previously on Tikosyn, however, taken off of Tikosyn after admission for MSSA, and was continued on Xarelto for AC and Coreg for rate control in May. GT in May 2024 performed to eval for endocarditis showed LA thrombus; had been on Xarelto at the time per chart review. At OSH just prior to this admission, patient had RVR and received dual tim blockade with dilt and metoprolol, stopped dilt 2/2 reduced EF and continued on metoprolol . - anticoagulation: heparin gtt -> Eliquis 07/14 - rate control with metoprolol given recent Afib RVR - Given RVR 07/18 in setting of acute agitation, s/p metoprolol 5 with improvement, will increase metoprolol to 75 mg daily #T2DM Home regimen: glargine 18u; Lispro 10 TID + SSI. A1c here 7.7 on 07/07/24. - Currently on Lantus 22 and mealtime 9 TID + HDSSI given hyperglycemia - POC glucose TIDAC #Anemia: Hgb 10.8 on arrival. Bl: 11-12. MCV elevated. B12 > 1000 at OSH, Folate wnl. CTM #Recurrent UTI #OAB Per family, has been treated multiple times recently for UTIs. Her symptoms are not urinary in nature, her symptoms typically are becoming delirious and belligerent. UA at outside hospital with 0-5 WBC, 3+ nitrate. Cx was performed which showed >100,000 colonies E coli. Given recurrence of events, would consider colonization versus recurrent UTI. - Did not treat given favoring colonization over UTI without specific symptoms, ongoing symptoms more likely attributed to bacteremia - Given ongoing concerns with family surrounding possible UTI, ordered culture 07/10, pending - Home Vibegron 75 --> change to Mirabegron for formulary #Hypothyroidism: Synthroid 75mcg, TSH 2.8 #Depression: Continue Lexapro 10, nortriptyline 10 #GERD: Pantoprazole 20 #Constipation: Senna-Docusate BID #JOSE: ordered CPAP, pt reportedly intermittently compliant at home Code Status: Full Code Disposition: pending Best contact: Primary Emergency Contact: Dilia Moise Diet: Adult Diet Restricted; 2 GM Sodium, Low Fat, Low Chol VTE Prophylaxis: Eliquis 5 BID PT: PT Recommendation/Plan: Jail Facility OT:OT Recommendation: Jail Facility Valentina Brown MD PGY-1 Internal Medicine Cosigned by Russ Pride MD at 07/18/2024 10:10 PM CDT Associated attestation - Russ Pride MD - 07/18/2024 10:10 PM CDT I have seen and examined the patient on 07/18/24. I agree with the findings and plan of care as documented in Dr. Deshpande's note. History: Stable, PAULINE. No specific complaints. PE: VSS. CV/pulm exam unchanged. I have personally reviewed the following lab data: SPECT EF 21%, normal perfusion; PET pending CBC and BMP stable Impression: 1. TV endocarditis with MSSA bacteremia s/p ICD extraction 2. Chronic HFrEF 3. VT/VF 4. Chronic AF 5. Other problems as per resident. Plan: 1. Continue currret therapy 2. PET when feasible 3. Increase activity as tolerated 4. Replace ICD after 2 weeks abx 5. Other plans as per resident. Medical Decision Making: Medical complexity: Moderate to high Risk: High due to VT/VF without ICD and multiple other problems Level of medical decision-making: Moderate to high Management was discussed with the patient and team and all questions were addressed. Russ Pride MD pss delivery professional Date of note: 07/18/24. * Ha MratinezYoanna - 07/17/2024 2:39 PM CDT Occupational Therapy Occupational Therapy Progress Note NOTE: This is a summary note of the vaz components of the treatment session. For full details, review chart for all flowsheets documented on by this occupational therapy clinician on this date. Vitalsigns documented in vital signs flowsheet. Care plan progress documented in Care Plan Activity. For questions, please review the treatment team and contact the occupational therapist currently assigned to this patient. If an occupational therapist is not assigned to this patient, please call [phone]. 07/17/24 9534 General Session Type Treatment OT Received On 07/17/24 Safe Environment Arm band checked;Patient found sitting at edge of bed Subjective Agreeable to Therapy Family/Caregiver Present Yes Precautions Precautions Fall risk Weight Bearing Restrictions No Pain Assessment Pain Assessment No/denies pain Balance Balance Yes Dynamic Sitting Balance Dynamic Sitting-Balance Support No upper extremity supported;Feet supported Dynamic Sitting-Balance Lateral lean;Forward lean;Reaching for objects;Reaching across midline Dynamic Sitting-Sitting Surface Bed Dynamic Sitting-Level of Assistance Minimum assistance Dynamic Sitting-Comments for safety and balance Dynamic Standing Balance Dynamic Standing-Balance Support Unilateral upper extremity supported Dynamic Standing-Balance Forward lean;Lateral lean;Reaching for objects;Reaching across midline Dynamic Standing-Standing Surface Floor Dynamic Standing-Level of Assistance Contact guard Dynamic Standing-Comments for safety ADL ADLS (WDL) X Grooming Grooming: Where assessed Standing at sink Grooming: Level of assistance Contact Guard Assist Grooming: Assistance with Balance;Safety LE Dressing LE Dressing: Where assessed Edge of bed LE Dressing: Level of assistance Moderate Assist LE Dressing: Assistance with Balance;Safety;Increased time to complete;Sequencing;Problem solving;Pull up over hips;Thread RLE into pants;Thread LLE into pants Bed Mobility Bed Mobility No (NT 2/2 Pt sitting EOB on OT arrival and requests to sit EOB at end of session) Transfers Transfer Yes Transfer 1 Transfer From 1 Sit Transfer Type 1 To and from Transfer to 1 Stand Technique 1 Sit to stand;Stand to sit Transfer Device 1 Wheeled walker Transfer Level of Assistance 1 Contact Guard Assist Trials/Comments 1 for safety and balance Transfers 2 Trials/Comments 2 Pt uses ww for functional mobility and requires CGA for balance and safety Toilet Transfers Toilet Transfers Comments NT 2/2 Pt requesting to return to EOB at end of session Cognition Arousal/Alertness Alert Attention Span Appears intact Memory Decreased short term memory Current communication Appears Intact Orientation Oriented X4 (person, place, time, situation) Following Commands Follows one step commands with increased time Safety Judgment Decreased awareness of need for safety Awareness of Errors Assistance required to identify errors made Insight Decreased awareness of deficits Problem Solving Assistance required to identify errors made;Assistance required to generate solutions Compliance/Behavior Easy to engage Activity Tolerance Activity Tolerance Comments Timmy- medium, grooming standing at sink Other Comments Comments Pt participated in HEP to improve/maintain B UE strength. Exercises include using soda canweight and completing movement 2 sets x 10 reps, 2-3 times per day. HEP includes elbow flexion, shoulder abduction, and shoulder flexion. Pt verbaiizes and demo's understanding. Daily Activity - 6 Clicks Putting on and taking off regular lower body clothing 2 Bathing 2 Toileting 2 Putting on and taking off upper body clothing 3 Personal Grooming 3 Eating Meals 4 Total Score (range 6-24) 16 Score Interpretation 35.96 Safe Environment End of Therapy Session Safe Environment End of Therapy Session Patient left sitting at edge of bed;RN notified;Call light within reach;Overbed table within reach Assessment Problem List Decreased safe judgment during ADL;Decreased upper extremity strength;Decreased cognition;Decreased endurance;Decreased balance;Decreased functional mobility;Decreased ADL independence;Decreased IADL independence;Decreased UE function;Decreased upper extremity function;Poor/Decreased functional positioning;Decreased trunk control for functional activities Barriers to Discharge Current Mobility Status;Current ADL Status;Cognition;Decreased safety awareness Plan Plan Continue with current plan;If this is the last note, consider this the discharge summary Recommendation/Plan OT Recommendation Jail Facility Patient at high risk for Falls;Readmission;Injury due to decreased ability to care for self;Injury due to reduced functional status;Injury due to impaired cognition;Injury due to balance deficits;Injury at home as patient has not returned to prior level of function;Developing impaired skin integrity;Cognitive decline due to decreased social participation;Mismanagement of medications;Prolonged dependence for self care tasks;Developing secondary complications: poor health management Recommend SNF due to Risk of injury at home;Unable to safely care for self in the home;Skilled therapy needed to address care for self in the home;Skilled therapy needed to address functional deficits;Skilled therapy needed for patient to return to prior level of independence OT Frequency during current admission 2-3x/wk Treatment/Interventions during current admission ADL/IADL retraining;Balance Training;Bed mobility;Cognitive retraining;Compensatory technique education;Endurance training;Functional activity;Functional transfer training;Functional mobility training;Therapeutic activity;Therapeutic exercise;Strengthening;Transfer training;Upper extremity motor function/functional skills Progress during current admission Progressing toward goals OT - Next Appointment 07/19/24 Time Calculation Start Time 1134 Stop Time 1157 Time Calculation (min) 23 min Multi-Disciplinary Problems (from Occupational Therapy) Active Problems Problem: Dressings Lower Extremities Start Date: 07/09/24 Goal Start Date Expected End Date End Date STG - Patient to complete lower body dressing with supervision using AE prn 07/09/24 07/23/24 -- Problem: Grooming Start Date: 07/09/24 Goal Start Date Expected End Date End Date STG - Patient will complete grooming standing at sink with min assist using wheeled walker 07/09/2410/14/24 -- Problem: Transfers Start Date: 07/09/24 Goal Start Date Expected End Date End Date STG - Patient will perform toilet transfer bed to bathroom toilet (raised prn) with supervision using wheeled walker 07/09/24 07/23/24 -- Problem: OT Misc Start Date: 07/09/24 Goal Start Date Expected End Date End Date OT LTG - Patient will be modified independent with ADLs and in room functional mobility. 07/09/24 08/06/24 -- Cosigned by Da Manriquez OT at 07/17/2024 2:40 PM CDT * Valentina Brown MD - 07/17/2024 8:59 AM CDT Medicine Daily Progress Note Patient: Lei Rodriguez : 1960 (63 y.o.) Date of Admission: 07/07/2024 Date of Service: 07/17/24 SUBJECTIVE Interval Events: - No acute events overnight - Vitals HR in 90s, vitals 100s/60s - No further recommendations from consulting services since last note - Patient reports mild back pain today, no other acute symptoms or complaints. Continues to appear euvolemic on exam - Patient endorses desire to get home and see cats. 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 Plan for Today: - FDG PET of spine pending, cardiac PET pending - SPECT scan today for part of sarcoid workup - Continue working to obtain records to investigate source of retained wire OBJECTIVE Vitals Most Recent: Vitals: 07/17/24 0724 BP: 98/49 Pulse: 90 Resp: 17 Temp: 36.6 ??C (97.9 ??F) SpO2: 93% 24 Hour Min/Max: Temp Min: 36.5 ??C (97.7 ??F) Max: 36.6 ??C (97.9 ??F) Pulse Min: 66 Max: 100 BP Min: 98/49 Max: 111/73 Resp Min: 17 Max: 18 SpO2 Min: 90 % Max: 93 % Intake/Output Intake/Output Summary (Last 24 hours) at 07/17/2024 0859 Last data filed at 07/16/20242004 Gross per 24 hour Intake 400 ml Output -- Net 400 ml Current Medications Scheduled Meds: Scheduled Medications Medication Dose Route Frequency apixaban (ELIQUIS) tablet 5 mg 5 mg oral Q12H [facility] ceFAZolin (ANCEF) 2,000 mg/20 mL in sterile water (premix) 2,000 mg 2,000 mg intravenous Q8H [facility] escitalopram (LEXAPRO) tablet 10 mg 10 mg oral Daily furosemide (LASIX) tablet 40 mg 40 mg oral Daily insulin glargine (LANTUS, SEMGLEE) 100 unit/mL injection 22 Units 22 Units subcutaneous QAM insulin lispro (HumaLOG, ADMELOG) 100 unit/mL injection 0-10 Units 0-10 Units subcutaneous TID withmeals insulin lispro (HumaLOG, ADMELOG) 100 unit/mL injection 0-5 Units 0-5 Units subcutaneous Nightly insulin lispro (HumaLOG, ADMELOG) 100 unit/mL injection 9 Units 9 Units subcutaneous TID with meals levothyroxine (SYNTHROID) tablet 75 mcg 75 mcg oral Daily - 0600 magnesium oxide (MAG-OX) tablet 400 mg 400 mg oral Daily metoprolol XL (TOPROL-XL) extended release tablet 50 mg 50 mg oral Daily mirabegron ER (MYRBETRIQ) extended release tablet 25 mg 25 mg oral Daily nortriptyline (PAMELOR) capsule 10 mg 10 mg oral Daily pantoprazole DR (PROTONIX) extended release tablet 20 mg 20 mg oral Daily sacubitriL-valsartan (ENTRESTO) 24-26 mg tablet 1 tablet 1 tablet oral BID senna-docusate (PERICOLACE) 8.6-50 mg per tablet 1 tablet 1 tablet oral BID sodium chloride 0.9% flush 0.5-20 mL 0.5-20 mL intra-catheter Q8H [facility] spironolactone (ALDACTONE) split tablet 12.5 mg 12.5 mg oral Daily Continuous Meds: Current Facility-Administered Medications Medication Dose Route Frequency Last Admin Lactated Ringer's 30 mL/hr intravenous Continuous New Bag at 07/13/24 1516 PRN Meds: PRN Medications Medication Dose Route Frequency Last Admin acetaminophen (TYLENOL) tablet 650 mg 650 mg oral Q4H PRN 650 mg at 07/15/24 1733 Carrier Fluids for Secondary Infusion - 0.9% Sodium Chloride 30 mL intravenous PRN cyclobenzaprine (FLEXERIL) tablet 5 mg 5 mg oral TID PRN 5 mg at 07/15/24 2219 dextrose gel in packet 15 g 15 g oral Q15 Min PRN Or dextrose (D10W) 10% bolus 250 mL 250 mL intravenous Q15 Min PRN glucagon injection 1 mg 1 mg intramuscular Q30 Min PRN lidocaine (LMX) 4 % cream 1 Application 1 Application topical QID PRN ondansetron ODT (ZOFRAN-ODT) disintegrating tablet 4 mg 4 mg oral Q6H PRN Or ondansetron (ZOFRAN) injection 4 mg 4 mg intravenous Q6H PRN 4 mg at 07/13/24 1728 polyethylene glycol (MIRALAX) packet 17 g 17 g oral Daily PRN ramelteon (ROZEREM) tablet 8 mg 8 mg oral Nightly PRN 8 mg at 07/14/24 2134 sodium chloride 0.9% flush 0.5-20 mL 0.5-20 mL intra-catheter PRN Physical Exam Physical Exam: Gen: No apparent distress. Resting comfortably. Cooperative. HEENT: No conjunctival pallor or injection, no icterus. No nasal discharge. Moist mucus membranes. Cardiac: Irregularly irregular rate and rhythm, normal S1/S2. No murmurs appreciated Pulm: Clear to auscultation bilaterally without crackles, wheezes, rhonchi Abdomen: Soft. No tenderness or distension. Extremity: Warm. No edema. No clubbing or cyanosis. Neuro: Alert and orientedx3. No focal deficits. Voiced understanding on reason for being in hospital, benefits from simple explanations Skin: No lesions, erythema, or skin changes. Psych: Mood appropriate. Appropriate insight. Laboratory Results Recent Results (from the past 24 hour(s)) POCT glucose Collection Time: 07/16/24 11:00 AM Result Value Ref Range Glucose, POC 200 (H) 70 - 199 mg/dL POCT glucose Collection Time: 07/16/24 4:23 PM Result Value Ref Range Glucose, POC 100 70 - 199 mg/dL POCT glucose Collection Time: 07/16/24 8:06 PM Result Value Ref Range Glucose, POC 86 70 - 199 mg/dL CBC without differential Collection Time: 07/16/24 9:13 PM Result Value Ref Range WBC 5.6 3.8 - 9.9 K/cumm Hgb 11.0 (L) 11.9 - 15.5 g/dL Hct 33.4 (L) 35.6 - 45.5 % Plt 219 150 - 400 K/cumm MPV 9.9 9.1 - 12.3 fL RBC 3.35 (L) 3.90 - 5.20 M/cumm MCV 99.7 (H) 81.3 - 96.4 fL MCH 32.8 27.1 - 33.3 pg MCHC 32.9 32.3 - 35.7 g/dL RDW CV 13.9 11.1 - 14.9 % RDW SD 50.5 (H) 35.7 - 48.1 fL NRBC abs 0.00 0.00 - 0.01 K/cumm Comprehensive metabolic panel Collection Time: 07/16/24 9:13 PM Result Value Ref Range Sodium 134 (L) 135 - 145 mmol/L Potassium, pl 4.0 3.3 - 4.9 mmol/L Chloride 93 (L) 97 - 110 mmol/L CO2 33 (H) 22 - 32 mmol/L Anion gap 8 2 - 15 mmol/L BUN 17 6 - 25 mg/dL Creatinine 1.01 0.60 - 1.10 mg/dL Glucose 106 70 - 199 mg/dL Calcium 9.5 8.5 - 10.3 mg/dL Bilirubin, total 0.3 0.1 - 1.2 mg/dL Protein, pl 7.3 6.5 - 8.5 g/dL Albumin 3.2 (L) 3.5 - 5.0 g/dL Alk phos 148 (H) 40 - 130 Units/L ALT 5 (L) 7 - 45 Units/L AST 24 10 - 45 Units/L Magnesium Collection Time: 07/16/24 9:13 PM Result Value Ref Range Magnesium 2.0 1.4 - 2.5 mg/dL eGFR Collection Time: 07/16/24 9:13 PM Result Value Ref Range eGFR 63 >=60 mL/min/1.73 m2 POCT glucose Collection Time: 07/17/24 7:45 AM Result Value Ref Range Glucose, POC 184 70 - 199 mg/dL Imaging Results CTA Heart and Coronary Arteries W Morphology when Performed Narrative: EXAMINATION: CORONARY CT ANGIOGRAM HISTORY: Heart failure [...] Small hiatal hernia. Multilevel degenerative disc disease. Impression: 1. No evidence of coronary artery disease. 2. Cardiomegaly with left atrial appendage clot. 3. Mild pulmonary edema. 4. Likely retrained wire or catheter in the right lower lobe, unchanged The Non Critical results regarding the atrial appendage clot were discussed with Dr. Brown by Dr. Eisenberg on 07/16/2024 at 12:50 PM Electronically signed by: Isabel Eisenberg M.D. ASSESSMENT & PLAN Lei Rodriguez is a 63 y.o. female with a PMHx significant for MSSA bacteremia (05/2024), A-fib,HFrEF (EF 30%), T2DM, GERD, Intellectual disability, OAB, JOSE, and hypothyroidism who presented to OSH 06/28 for back pain. Found to have + blood cx for staph aureus and CT c/f OM. Tx to [facility] for further evaluation and treatment. 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 #MSSA TV Endocarditis, recurrent, secondary to infected ICD lead #History of Vfib/VT Recent admit 05/2024 for MSSA bacteremia. Per outside hospital, TTE and GT no vegetations on valvesor on ICD wires. Treated with 4 weeks of IV Ancef ending 06/21. Review of ID notes from OSH show blood cultures remained clear on 06/13. 07/01 blood cx were drawn x2, 10/11 then second set 11/11 MSSA. Vanc+ Ancef started, Vanc d/c 07/03. 07/02 cx NGTD. Concern for lack of source control given recurrence, with potential sources including ICD, heart valves, osteomyelitis of spine given patient's back pain. Ongoing assessment throughout admission. BCx on admission 07/08/24 no growth, HIV NR. TTE 07/07/24 demonstrated echodensity on V lead of ICD, GT demonstrating vegetation on TV without vegetation on ICD, as well as thrombus in LA. ICD was interrogated showing shocks on 06/10/24 for ventricular arrhythmia, not pacer dependent. ICD removed 07/13/24. Per multidisciplinary discussion with CTS, valvular, not a candidate for angiovac or TV surgery. Potential ongoing sources include spine and wire in PA seen on repeat imaging 07/14. MRI not safe given retained wire, and wire likely to be lifetime source for recurrent infection as removal would be extremely high risk per CTS and vascular surgery. Current Plan: - Cardiac surgery, EP, ID consulted, appreciate ongoing recommendations - continue Ancef 2g Q8H x 6 weeks (07/13-08/23) then lifetime cefadroxil 1 g BID - FDG PET spine pending for osteo eval - continuous tele 07/17 updates: - Pursuing PET FDG for spine eval as MRI not safe with wire - Plan to remain inpatient until replacement of ICD #HFrEF - compensated EF of 30% on 05/2024 echocardiogram, mild-mod MR, RVSP 42 mild-mod TR. On chart review, patient hadHFrEF dating back to at least 2016, though etiology of this not clearly established. Current GDMT includes metoprolol, Entresto 24-26 BID, furosemide 40 daily - Not on Farxiga due to recurrent UTI - Initiated spironolactone 12.5 mg 9/30 - CTA coronary obtained 07/16 without evidence of CAD (calcium score 0) - Cardiac PET (sarcoid protocol) ordered 07/16 for further nonischemic cardiomyopathy eval #Persistent atrial fibrillation #MAULIK Thrombus In AFib on admission. Previously on Tikosyn, however, taken off of Tikosyn after admission for MSSA, and was continued on Xarelto for AC and Coreg for rate control in May. GT in May 2024 performed to eval for endocarditis showed LA thrombus; had been on Xarelto at the time per chart review. At OSH just prior to this admission, patient had RVR and received dual tim blockade with dilt and metoprolol, stopped dilt 2/2 reduced EF and continued on metoprolol . - anticoagulation: heparin gtt -> Eliquis 07/14 - rate control with metoprolol given recent Afib RVR #T2DM Home regimen: glargine 18u; Lispro 10 TID + SSI. A1c here 7.7 on 07/07/24. - Currently on Lantus 22 and mealtime 9 TID + HDSSI given hyperglycemia - POC glucose TIDAC #Anemia: Hgb 10.8 on arrival. Bl: 11-12. MCV elevated. B12 > 1000 at OSH, Folate wnl. CTM #Recurrent UTI #OAB Per family, has been treated multiple times recently for UTIs. Her symptoms are not urinary in nature, her symptoms typically are becoming delirious and belligerent. UA at outside hospital with 0-5 WBC, 3+ nitrate. Cx was performed which showed >100,000 colonies E coli. Given recurrence of events, would consider colonization versus recurrent UTI. - Did not treat given favoring colonization over UTI without specific symptoms, ongoing symptoms more likely attributed to bacteremia - Given ongoing concerns with family surrounding possible UTI, ordered culture 07/10, pending - Home Vibegron 75 --> change to Mirabegron for formulary #Hypothyroidism: Synthroid 75mcg, TSH 2.8 #Depression: Continue Lexapro 10, nortriptyline 10 #GERD: Pantoprazole 20 #Constipation: Senna-Docusate BID #JOSE: ordered CPAP, pt reportedly intermittently compliant at home #Hx of intellectual disability/developmental delay: Sister Dilia currently takes care of patient, other sister Peg assists. Both discuss pt medical decisions together. Patient is not consentable Code Status: Full Code Disposition: pending Best contact: Primary Emergency Contact: Dilia Moise Diet: Adult Diet Restricted; 2 GM Sodium, Low Fat, Low Chol VTE Prophylaxis: Eliquis 5 BID PT: PT Recommendation/Plan: Jail Facility OT:OT Recommendation: Jail Facility Valentina Brown MD PGY-1 Internal Medicine Cosigned by Russ Pride MD at 07/17/2024 3:57 PM CDT Associated attestation - Russ Pride MD - 07/17/2024 3:57 PM CDT I have seen and examined the patient on 07/17/24. I agree with the findings and plan of care as documented in Dr. Brown's note. History: Stable, PAULINE. Unhappy about npo for testing. PE: VSS. CV/pulm exam unremarkable. I have personally reviewed the following lab data: Creat 1.01, Na 134, WBC 5.6, Hb 11.0 Impression: 1. Recurrent MSSA bacteremia with TV endocarditis and s/p PM/ICD extraction 2. Chronic systolic and diastolic HF 3. VT/VF with recent ICD shocks, now s/p device extraction due to concern for infection 4. Persistent AF 5. Other problems as per resident. Plan: 1. Continue current therapy 2. Cardiac SPECT today as 1st stage or work-up for inflammatory cardiomyopathy (e.g. sarcoid) 3. Follow-up cardiac and spine PET 4. Obtain records from OSH re: possible source of wire in PA 5. Other plans as per resident. Medical Decision Making: Medical complexity: Moderate to high Risk: High due to recent VT/VF now without ICD Level of medical decision-making: Moderate to high Management was discussed with the patient, family, and team and all questions were addressed. Russ Pride MD pss delivery professional Date of note: 07/17/24. * Valentina Brown MD - 07/16/2024 4:33 PM CDT Medicine Daily Progress Note Patient: Lei Rodriguez : 1960 (63 y.o.) Date of Admission: 07/07/2024 Date of Service: 07/16/24 SUBJECTIVE Interval Events: - No acute events overnight. Ms. Rodriguez endorses mild back pain today, unchanged from prior, noacute complaints - On tele, remains in rate controlled afib - Lead removed during surgery grew MSSA - Per vascular surgery and CTS, not a candidate for retrieval of pulmonary artery wire. Origin if this wire remains unclear, family and patient unsure if ever had procedure where this wire may have been left in - Per discussion with radiology, MRI would be high risk given retained wire, cancelled at this time - CTA coronary obtained today without evidence of coronary artery disease, therefore conclude HFrEFis nonischemic cardiomyopathy Plan for Today: - Ongoing evaluation: - Limited FDG PET of spine to rule out osteo - sarcoid cardiac PET protocol to eval nonischemic cardiomyopathy (AFTER) FDG PET above - Contact outside records regarding retained wire - Dispo planning: - ID recommendations: 6 weeks 2 g cefazolin q8h, at least 2 weeks of this prior to ICD re-implant, and after 6 weeks will need lifetime cefadroxil 1 g BID - Next 2 weeks prior to ICD replacement: Per EP, ideally would remain in hospital on telemetry but could also consider LifeVest at SNF. Family reports negative associations with SNF and preference toremain inpatient. Continue re- evaluate pending time course of above imaging testing OBJECTIVE Vitals Most Recent: Vitals: 07/16/24 1525 BP: 111/73 Pulse: 100 Resp: 18 Temp: 36.5 ??C (97.7 ??F) SpO2: 90% 24 Hour Min/Max: Temp Min: 36.5 ??C (97.7 ??F) Max: 36.7 ??C (98.1 ??F) Pulse Min: 66 Max: 100 BP Min: 90/40 Max: 111/73 Resp Min: 18 Max: 20 SpO2 Min: 90 % Max: 97 % Intake/Output No intake or output data in the 24 hours ending 07/16/24 1633 Current Medications Scheduled Meds: Scheduled Medications Medication Dose Route Frequency apixaban (ELIQUIS) tablet 5 mg 5 mg oral Q12H GALINA ceFAZolin (ANCEF) 2,000 mg/20 mL in sterile water (premix) 2,000 mg 2,000 mg intravenous Q8H [facility] escitalopram (LEXAPRO) tablet 10 mg 10 mg oral Daily furosemide (LASIX) tablet 40 mg 40 mg oral Daily insulin glargine (LANTUS, SEMGLEE) 100 unit/mL injection 22 Units 22 Units subcutaneous QAM insulin lispro (HumaLOG, ADMELOG) 100 unit/mL injection 0-10 Units 0-10 Units subcutaneous TID withmeals insulin lispro (HumaLOG, ADMELOG) 100 unit/mL injection 0-5 Units 0-5 Units subcutaneous Nightly insulin lispro (HumaLOG, ADMELOG) 100 unit/mL injection 9 Units 9 Units subcutaneous TID with meals levothyroxine (SYNTHROID) tablet 75 mcg 75 mcg oral Daily - 0600 magnesium oxide (MAG-OX) tablet 400 mg 400 mg oral Daily metoprolol XL (TOPROL-XL) extended release tablet 50 mg 50 mg oral Daily mirabegron ER (MYRBETRIQ) extended release tablet 25 mg 25 mg oral Daily nortriptyline (PAMELOR) capsule 10 mg 10 mg oral Daily pantoprazole DR (PROTONIX) extended release tablet 20 mg 20 mg oral Daily sacubitriL-valsartan (ENTRESTO) 24-26 mg tablet 1 tablet 1 tablet oral BID senna-docusate (PERICOLACE) 8.6-50 mg per tablet 1 tablet 1 tablet oral BID sodium chloride 0.9% flush 0.5-20 mL 0.5-20 mL intra-catheter Q8H [facility] spironolactone (ALDACTONE) split tablet 12.5 mg 12.5 mg oral Daily Continuous Meds: Current Facility-Administered Medications Medication Dose Route Frequency Last Admin Lactated Ringer's 30 mL/hr intravenous Continuous New Bag at 07/13/24 1516 PRN Meds: PRN Medications Medication Dose Route Frequency Last Admin acetaminophen (TYLENOL) tablet 650 mg 650 mg oral Q4H PRN 650 mg at 07/15/24 1733 Carrier Fluids for Secondary Infusion - 0.9% Sodium Chloride 30 mL intravenous PRN cyclobenzaprine (FLEXERIL) tablet 5 mg 5 mg oral TID PRN 5 mg at 07/15/24 2219 dextrose gel in packet 15 g 15 g oral Q15 Min PRN Or dextrose (D10W) 10% bolus 250 mL 250 mL intravenous Q15 Min PRN glucagon injection 1 mg 1 mg intramuscular Q30 Min PRN lidocaine (LMX) 4 % cream 1 Application 1 Application topical QID PRN ondansetron ODT (ZOFRAN-ODT) disintegrating tablet 4 mg 4 mg oral Q6H PRN Or ondansetron (ZOFRAN) injection 4 mg 4 mg intravenous Q6H PRN 4 mg at 07/13/24 1728 polyethylene glycol (MIRALAX) packet 17 g 17 g oral Daily PRN ramelteon (ROZEREM) tablet 8 mg 8 mg oral Nightly PRN 8 mg at 07/14/24 2134 sodium chloride 0.9% flush 0.5-20 mL 0.5-20 mL intra-catheter PRN Physical Exam Physical Exam: Gen: No apparent distress. Resting comfortably. Cooperative. HEENT: No conjunctival pallor or injection, no icterus. No nasal discharge. Moist mucus membranes. Cardiac: Irregularly irregular rate and rhythm, normal S1/S2. No murmurs. No JVD. No S3/S4. No LE edema. Peripheral pulses 2+ bilaterally. Pulm: Clear to auscultation bilaterally. No wheezing or rhonchi. Abdomen: Soft. No tenderness or distension. Extremity: Warm. No edema. No clubbing or cyanosis. MSK: Paraspinal tenderness around T10-12, no erythema Neuro: Alert and orientedx3. Sensation intact throughout to light touch. Tender to palpation in lower spine midline and on right side (unchanged). Unable to respond to complex questions, forgets information between conversations. Skin: No lesions, erythema, or skin changes. Psych: Mood appropriate. Appropriate insight. Laboratory Results Recent Results (from the past 24 hour(s)) POCT glucose Collection Time: 07/15/24 7:47 PM Result Value Ref Range Glucose, POC 147 70 - 199 mg/dL CBC without differential Collection Time: 07/15/24 10:22 PM Result Value Ref Range WBC 6.5 3.8 - 9.9 K/cumm Hgb 11.0 (L) 11.9 - 15.5 g/dL Hct 33.6 (L) 35.6 - 45.5 % Plt 233 150 - 400 K/cumm MPV 10.5 9.1 - 12.3 fL RBC 3.37 (L) 3.90 - 5.20 M/cumm MCV 99.7 (H) 81.3 - 96.4 fL MCH 32.6 27.1 - 33.3 pg MCHC 32.7 32.3 - 35.7 g/dL RDW CV 14.3 11.1 - 14.9 % RDW SD 52.1 (H) 35.7 - 48.1 fL NRBC abs 0.00 0.00 - 0.01 K/cumm Comprehensive metabolic panel Collection Time: 07/15/24 10:22 PM Result Value Ref Range Sodium 137 135 - 145 mmol/L Potassium, pl See Comment 3.3 - 4.9 mmol/L Chloride 97 97 - 110 mmol/L CO2 31 22 - 32 mmol/L Anion gap 9 2 - 15 mmol/L BUN 20 6 - 25 mg/dL Creatinine 0.77 0.60 - 1.10 mg/dL Glucose 119 70 - 199 mg/dL Calcium 9.5 8.5 - 10.3 mg/dL Bilirubin, total 0.3 0.1 - 1.2 mg/dL Protein, pl 7.5 6.5 - 8.5 g/dL Albumin 3.3 (L) 3.5 - 5.0 g/dL Alk phos 143 (H) 40 - 130 Units/L ALT See Comment 7 - 45 Units/L AST See Comment 10 - 45 Units/L Magnesium Collection Time: 07/15/24 10:22 PM Result Value Ref Range Magnesium 1.8 1.4 - 2.5 mg/dL eGFR Collection Time: 07/15/24 10:22 PM Result Value Ref Range eGFR 87 >=60 mL/min/1.73 m2 Potassium, whole blood Collection Time: 07/16/24 2:15 AM Result Value Ref Range Potassium, bld 4.1 3.3 - 4.9 mmol/L POCT glucose Collection Time: 07/16/24 7:42 AM Result Value Ref Range Glucose, POC 137 70 - 199 mg/dL POCT glucose Collection Time: 07/16/24 11:00 AM Result Value Ref Range Glucose, POC 200 (H) 70 - 199 mg/dL POCT glucose Collection Time: 07/16/24 4:23 PM Result Value Ref Range Glucose, POC 100 70 - 199 mg/dL Imaging Results CTA Heart and Coronary Arteries W Morphology when Performed Narrative: EXAMINATION: CORONARY CT ANGIOGRAM HISTORY: Heart failure [...] Small hiatal hernia. Multilevel degenerative disc disease. Impression: 1. No evidence of coronary artery disease. 2. Cardiomegaly with left atrial appendage clot. 3. Mild pulmonary edema. 4. Likely retrained wire or catheter in the right lower lobe, unchanged The Non Critical results regarding the atrial appendage clot were discussed with Dr. Brown by Dr. Eisenberg on 07/16/2024 at 12:50 PM Electronically signed by: Isabel Eisenberg M.D. ASSESSMENT & PLAN Lei Rodriguez is a 63 y.o. female with a PMHx significant for MSSA bacteremia (05/2024), A-fib,HFrEF (EF 30%), T2DM, GERD, Intellectual disability, OAB, JOSE, and hypothyroidism who presented to OSH 06/28 for back pain. Found to have + blood cx for staph aureus and CT c/f OM. Tx to [facility] for further evaluation and treatment. 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 #MSSA TV Endocarditis, recurrent, secondary to infected ICD lead #History of Vfib/VT Recent admit 05/2024 for MSSA bacteremia. Per outside hospital, TTE and GT no vegetations on valvesor on ICD wires. Treated with 4 weeks of IV Ancef ending 06/21. Review of ID notes from OSH show blood cultures remained clear on 06/13. 07/01 blood cx were drawn x2, 10/11 then second set 11/11 MSSA. Vanc+ Ancef started, Vanc d/c 07/03. 07/02 cx NGTD. Concern for lack of source control given recurrence, with potential sources including ICD, heart valves, osteomyelitis of spine given patient's back pain. Ongoing assessment throughout admission. BCx on admission 07/08/24 no growth, HIV NR. TTE 07/07/24 demonstrated echodensity on V lead of ICD, GT demonstrating vegetation on TV without vegetation on ICD, as well as thrombus in [place]. ICD was interrogated showing shocks on 06/10/24 for ventricular arrhythmia, not pacer dependent. ICD removed 07/13/24. Per multidisciplinary discussion with CTS, valvular, not a candidate for angiovac or TV surgery. Potential ongoing sources include spine and wire in PA seen on repeat imaging 07/14. MRI not safe given retained wire, and wire likely to be lifetime source for recurrent infection as removal would be extremely high risk per CTS and vascular surgery. Current Plan: - Cardiac surgery, EP, ID consulted, appreciate ongoing recommendations - continue Ancef 2g Q8H x 6 weeks (07/13-08/23) then lifetime cefadroxil 1 g BID - FDG PET spine pending for osteo eval - continuous tele 07/16 updates: - Not candidate for wire removal per vascular and CTS, extremely high risk - Per ID, needs lifetime suppression (cefadroxil 1 g BID) given retained wire - Pursuing PET FDG for spine eval as MRI not safe with wire - Discussed feasibility of life vest with EP and family briefly today. Per EP, life vest an option but ideally would stay inpatient, and family voiced preference to stay inpatient given negative experiences with SNF in past #HFrEF - compensated EF of 30% on 05/2024 echocardiogram, mild-mod MR, RVSP 42 mild-mod TR. On chart review, patient hadHFrEF dating back to at least 2016, though etiology of this not clearly established. Current GDMT includes metoprolol, Entresto 24-26 BID, furosemide 40 daily - Not on Farxiga due to recurrent UTI - Initiated spironolactone 12.5 mg 07/09 - Consider up-titrating Entresto if BP allows during admission - CTA coronary obtained 07/16 without evidence of CAD (calcium score 0) - Cardiac PET (sarcoid protocol) ordered 07/16 for further nonischemic cardiomyopathy eval #Persistent atrial fibrillation #MAULIK Thrombus In AFib on admission. Previously on Tikosyn, however, taken off of Tikosyn after admission for MSSA, and was continued on Xarelto for AC and Coreg for rate control in May. GT in May 2024 performed to eval for endocarditis showed LA thrombus; had been on Xarelto at the time per chart review. At OSH just prior to this admission, patient had RVR and received dual tim blockade with dilt and metoprolol, stopped dilt 2/2 reduced EF and continued on metoprolol . - anticoagulation: heparin gtt -> Eliquis 07/14 - rate control with metoprolol given recent Afib RVR #T2DM Home regimen: glargine 18u; Lispro 10 TID + SSI. A1c here 7.7 on 07/07/24. - Currently on Lantus 22 and mealtime 9 TID + HDSSI given hyperglycemia - POC glucose TIDAC #Anemia: Hgb 10.8 on arrival. Bl: 11-12. MCV elevated. B12 > 1000 at OSH, Folate wnl. CTM #Recurrent UTI #OAB Per family, has been treated multiple times recently for UTIs. Her symptoms are not urinary in nature, her symptoms typically are becoming delirious and belligerent. UA at outside hospital with 0-5 WBC, 3+ nitrate. Cx was performed which showed >100,000 colonies E coli. Given recurrence of events, would consider colonization versus recurrent UTI. - Did not treat given favoring colonization over UTI without specific symptoms, ongoing symptoms more likely attributed to bacteremia - Given ongoing concerns with family surrounding possible UTI, ordered culture 07/10, pending - Home Vibegron 75 --> change to Mirabegron for formulary #Hypothyroidism: Synthroid 75mcg, TSH 2.8 #Depression: Continue Lexapro 10, nortriptyline 10 #GERD: Pantoprazole 20 #Constipation: Senna-Docusate BID #JOSE: ordered CPAP, pt reportedly intermittently compliant at home #Hx of intellectual disability/developmental delay: Sister Dilia currently takes care of patient, other sister Peg assists. Both discuss pt medical decisions together. Patient is not consentable Code Status: Full Code Disposition: pending Best contact: Primary Emergency Contact: Dilia Moise Diet: Adult Diet Restricted; 2 GM Sodium, Low Fat, Low Chol VTE Prophylaxis: Eliquis 5 BID PT: PT Recommendation/Plan: Jail Facility OT:OT Recommendation: Jail Facility Valentina Brown MD PGY-1 Internal Medicine Cosigned by Russ Pride MD at 07/16/2024 6:59 PM CDT Associated attestation - Russ Pride MD - 07/16/2024 6:59 PM CDT I have seen and examined the patient on 07/16/24. I agree with the findings and plan of care as documented in Dr. Brown's note. History: Stable, no acute events. Reports pain in middle of back; otherwise no specific complaints. PE: VSS. CV/pulm exam unremarkable. Mild tenderness along spine mid to lower back I have personally reviewed the following lab data: Coronary CTA today -- normal coronaries, CAC 0 WBC 6,5m Hb 11.0, creat 0.77 I independently reviewed and interpreted: Recent CXR -- apparent wire in PA, unclear source Impression: 1. Recurrent MSSA bacteremia 2. NICM, EF ~30% 3. VT s/p ICD shocks, now s/p ICD extraction 4. TV vegetation 5. Other problems as per resident. Plan: 1. Continue current therapy 2. Not a good candidate for MRI due to wire in PA; will therefore obtain PET to evaluate for osteo in back and myocardial inflammation (e.g. sarcoid) 3. Obtain records from OSH cardiology re: PA wire 4. Re-implant ICD after 2 weeks IV abx 5. D/C planning pending above 6. Other plans as per resident. Medical Decision Making: Medical complexity: Moderate to high Risk: High due to recent sustained VT and currently without ICD Level of medical decision-making: Moderate to high Management was discussed with the patient, sister (on phone) and team and all questions were addressed. Russ Pride MD pss delivery professional Date of note: 07/16/24. * Jennifer Webb, PHONG - 07/16/2024 3:26 PM CDT Nutrition Screen Note Pt. Screened for nutritional assessment secondary to LOS Past Medical History: Diagnosis Date A-fib (CMS/HCC) (HCC) CHF (congestive heart failure) (CMS/HCC) (HCC) Diabetes mellitus (HCC) GERD (gastroesophageal reflux disease) Hypertension Intellectual disability OAB (overactive bladder) Sleep apnea Thyroid disease Past Surgical History: Procedure Laterality Date CARDIAC DEFIBRILLATOR PLACEMENT CHOLECYSTECTOMY INSERT / REPLACE / REMOVE PACEMAKER IR PICC LINE PLACEMENT > 5 YEARS N/A 06/05/2024 OTHER SURGICAL HISTORY 05/31/2024 GT/CARDIOVERSION Anthropometrics Weight: 110 kg (242 lb 6.4 oz) Admission Weight : 113.6 kg Weight Change: 0.13 kg (0.30 lbs) IBW/kg (Calculated) : 56.7 kg Height: 165.1 cm (5' 5 ) Weight in (lb) to have BMI = 25: 149.9 BMI (Calculated): 40.3 Adult Malnutrition Scoring Tool (MST) What diet do you follow at home?: none Have You Recently Lost Weight Without Trying?: No Have you been eating poorly because of a decreased appetite?: No Malnutrition Screening Tool (MST) Score: 0 Dietary Orders (From admission, onward) Start Ordered 07/13/24 174 Adult Diet Restricted; 2 GM Sodium, Low Fat, Low Chol Diet effective now Question Answer Comment (BJ) Diet type Restricted Fat / Sodium Restriction: 2 GM Sodium Fat / Sodium Restriction: Low Fat, Low Chol 07/13/24 1743 07/07/24 2100 Bedtime snack At bedtime Comments: If bedtime BG is less than 100mg/dl, give patient a 15 gram carbohydrate snack. 07/07/24 0108 Assessment / Impression: Pt reports good appetite, states no N/V/D and unsure of any weight changes. Pt also unsure of usual body weight. Documented po intakes appear good, continue to follow. Jennifer Webb MS, RD, LD [phone] * Tim Strong MD - 07/15/2024 3:18 PM CDT Vascular Surgery Consult Daily Progress Patient Name/MRN: Lei Rodriguez [id number] Attending: Ynes Roman MD Today's Date: 07/15/2024 Room/Bed: [id number] Admit Date: 07/07/2024 Code Status: Full Code Events Over Last 24 Hours: NAONE. Underwent ICD removal and continuing on abx. Vascular re-engaged for consideration of wire extraction from right pulmonary artery. Current Facility-Administered Medications Medication Dose Route Frequency Provider Last Rate Last Admin acetaminophen (TYLENOL) tablet 650 mg 650 mg oral Q4H PRN Marylou Saravia MD 650 mg at 07/15/24 0930 apixaban (ELIQUIS) tablet 5 mg 5 mg oral Q12H [facility] Becca Wilcox MD 5 mg at 07/15/24 0845 Carrier Fluids for Secondary Infusion - 0.9% Sodium Chloride 30 mL intravenous PRN Marylou Saravia MD ceFAZolin (ANCEF) 2,000 mg/20 mL in sterile water (premix) 2,000 mg 2,000 mg intravenous Q8H G[facility]INA Marylou Saravia MD 2,000 mg at 07/15/24 1413 cyclobenzaprine (FLEXERIL) tablet 5 mg 5 mg oral TID PRN Marylou Saravia MD 5 mg at 07/14/24 2134 dextrose gel in packet 15 g 15 g oral Q15 Min PRN Marylou Saravia MD Or dextrose (D10W) 10% bolus 250 mL 250 mL intravenous Q15 Min PRN Marylou Saravia MD escitalopram (LEXAPRO) tablet 10 mg 10 mg oral Daily Marylou Saravia MD 10 mg at 07/15/24 0844 furosemide (LASIX) tablet 40 mg 40 mg oral Daily Marylou Saravia MD 40 mg at 07/15/24 0844 glucagon injection 1 mg 1 mg intramuscular Q30 Min PRN Marylou Saravia MD insulin glargine (LANTUS, SEMGLEE) 100 unit/mL injection 22 Units 22 Units subcutaneous QAM Becca Wilcox MD 22 Units at 07/15/24 0849 insulin lispro (HumaLOG, ADMELOG) 100 unit/mL injection 0-10 Units 0-10 Units subcutaneous TID withmeals Valentina Brown MD 4 Units at 07/15/24 1219 insulin lispro (HumaLOG, ADMELOG) 100 unit/mL injection 0-5 Units 0-5 Units subcutaneous Nightly Valentina Brown MD 1 Units at 07/13/24 2030 insulin lispro (HumaLOG, ADMELOG) 100 unit/mL injection 9 Units 9 Units subcutaneous TID with Becca Diallo MD 9 Units at 07/15/24 1218 Lactated Ringer's (LR) infusion 30 mL/hr intravenous Continuous Stepan Love MD New Bag at1 1516 levothyroxine (SYNTHROID) tablet 75 mcg 75 mcg oral Daily - 06 Marylou Saravia MD 75 mcg at 07/15/24 0527 lidocaine (LMX) 4 % cream 1 Application 1 Application topical QID PRN Becca Wilcox MD magnesium oxide (MAG-OX) tablet 400 mg 400 mg oral Daily Marylou Saravia MD 400 mg at 07/15/24 0844 metoprolol XL (TOPROL-XL) extended release tablet 50 mg 50 mg oral Daily Marylou Saravia MD 50 mg at 07/15/24 0844 mirabegron ER (MYRBETRIQ) extended release tablet 25 mg 25 mg oral Daily Marylou Saravia MD 25 mg at 07/15/24 0844 nortriptyline (PAMELOR) capsule 10 mg 10 mg oral Daily Marylou Saravia MD 10 mg at 07/15/24 0845 ondansetron ODT (ZOFRAN-ODT) disintegrating tablet 4 mg 4 mg oral Q6H PRN Marylou Saravia, MD Or ondansetron (ZOFRAN) injection 4 mg 4 mg intravenous Q6H PRN Marylou Saravia MD 4 mg at 07/13/[address] (PROTONIX) extended release tablet 20 mg 20 mg oral Daily Marylou Saravia MD 20 mg at 07/15/24 0845 polyethylene glycol (MIRALAX) packet 17 g 17 g oral Daily PRN Marylou Saravia MD ramelteon (ROZEREM) tablet 8 mg 8 mg oral Nightly PRN Marylou Saravia MD 8 mg at 07/14/24 2134 sacubitriL-valsartan (ENTRESTO) 24-26 mg tablet 1 tablet 1 tablet oral BID Marylou Saravia MD 1 tablet at 07/15/24 0845 senna-docusate (PERICOLACE) 8.6-50 mg per tablet 1 tablet 1 tablet oral BID Marylou Saravia MD 1 tablet at 07/15/24 0845 sodium chloride 0.9% flush 0.5-20 mL 0.5-20 mL intra-catheter Q8H GALINA Marylou Saravia MD10 mL at 07/15/24 0527 sodium chloride 0.9% flush 0.5-20 mL 0.5-20 mL intra-catheter PRN Marylou Saravia MD spironolactone (ALDACTONE) split tablet 12.5 mg 12.5 mg oral Daily Valentina Brown MD 12.5 mg at 07/15/24 0845 Objective Vitals: 24hr Min/Max: Temp Min: 36.4 ??C (97.5 ??F) Max: 37 ??C (98.6 ??F) Pulse Min: 67 Max: 94 BP Min: 86/74 Max: 122/70 Resp Min: 20 Max: 22 SpO2 Min: 91 % Max: 98 % Most Recent : Vitals: 07/15/24 1500 BP: 116/53 Pulse: 67 Resp: 20 Temp: 37 ??C (98.6 ??F) SpO2: 93% I/O last 2 completed shifts: In: 400 [P.O.:400] Out: - I/O this shift: In: 200 [P.O.:200] Out: - Physical exam: Constitutional: Appears comfortable. No acute distress. Neuro: Alert and oriented x3. No gross focal deficits. CVS: irregularly irregular. Life vest Resp: Non-labored breathing, symmetric chest wall movements Abdomen: Soft, non-distended, non-tender Extremities: No rashes, no significant edema Neuromuscular: Motor strength grossly normal all 4 extremities Pulses: Right Radial: palpable Right Femoral: palpable Left Radial: palpable Left Femoral: palpable Labs: Recent Labs Lab Units 07/15/24 1110 07/15/24 0848 07/14/24 2136 07/14/24 0817 07/13/24 2100 07/13/24 0800 07/13/24 0058 SODIUM mmol/L -- -- 140 -- 137 -- 136 POTASSIUM PLASMA mmol/L -- -- 3.9 -- 4.4 -- 4.5 CHLORIDE mmol/L -- -- 100 -- 99 -- 96* CO2 mmol/L -- -- 34* -- 30 -- 29 ANIONGAP mmol/L -- -- 6 -- 8 -- 11 GLUCOSE mg/dL -- -- 85 -- 310* -- 199 POC GLUCOSE MONITOR mg/dL 221* 160 -- < > -- < > -- BUN SERUM mg/dL -- -- 18 -- 13 -- 14 CREATININE mg/dL -- -- 0.80 0.80 -- 0.80 -- 0.81 CALCIUM mg/dL -- -- 9.7 -- 9.4 -- 9.6 ALBUMIN g/dL -- -- 3.4* -- 3.5 -- 3.4* ALK PHOS Units/L -- -- 156* -- 158* -- 147* ALT Units/L -- -- 6* -- 12 -- 9 AST Units/L -- -- 23 -- 46* -- 30 BILIRUBIN TOTAL mg/dL -- -- 0.3 -- 0.3 -- 0.3 < > = values in this interval not displayed. Recent Labs Lab Units 07/14/24 2136 07/13/24 2103 07/13/24 1718 07/13/24 0058 WBC K/cumm 6.7 5.6 -- 5.0 RBC M/cumm 3.43* 3.46* -- 3.35* HEMOGLOBIN, POC g/dL -- -- 11.1* -- HEMOGLOBIN g/dL 11.2* 11.1* -- 10.7* HEMATOCRIT % 34.2* 35.5* -- 33.9* HEMATOCRIT POC % -- -- 33.0* -- MCV fL 99.7* 102.6* -- 101.2* MCHC g/dL 32.7 31.3* -- 31.6* MCH pg 32.7 32.1 -- 31.9 MPV fL 9.7 9.4 -- 10.5 Recent Labs Lab Units 07/14/24 1154 INR 1.12 Imaging: XR Chest PA Lateral 2 Views Result Date: 07/11/2024 The current study is compared with the [...] stable from prior examination. Pulmonary nodules better characterizedon recent CT. Dictated by: Meena Pagan MD The radiology attending physician has personally reviewed this study, and had reviewed and/or edited this written report and agrees with it. Electronically signed by: Jonathan Garcia M.D. Assessment/Plan: 63-year-old female with recurrent MSSA bacteremia, concern for spinal osteomyelitis and bacterial seeding of her ICD, and underwent ICD extraction 07/13. Prior CT imaging demonstrates a wire in her right pulmonary artery, proximally at the right pulmonary artery trifurcation and distally extending wood bsegmental. - risks of extremely high-risk attempt at wire extraction, with unknown chronicity of wire being present in the distal right pulmonary artery, outweigh benefits at this time, and we recommend continued antibiotics at this time. - Vascular surgery will sign off. Please call [phone] with vascular consult questions 02/05. Tim Strong MD Resident Physician Vascular Surgery Vascular Consult Vascular Inpatient Floor [facility] Cosigned by Richar Kuhn DO at 07/16/2024 4:36 PM CDT Associated attestation - Richar Kuhn DO - 07/16/2024 4:36 PM CDT The resident/fellow saw and examined the patient, we discussed their findings, and I am in agreement with the plan based on the discussion with the resident/fellow. I did not personally examine the patient. * Valentina Brown MD - 07/15/2024 9:43 AM CDT Medicine Daily Progress Note Patient: Lei Rodriguez : 1960 (63 y.o.) Date of Admission: 07/07/2024 Date of Service: 07/15/24 SUBJECTIVE Interval Events: - No acute events overnight - CXR re-demonstrated wire in PA - Remains in rate controlled atrial fibrillation - Patient endorses mild back pain today, no further complaints - Transitioned from heparin gtt to Eliquis 5 BID on 07/14 Plan for Today: - CTA coronaries, MRI pending - Discussed with ID goal of source control with retained wire. Per CTS, would require open surgery if done by cardiac. Re-engaged vascular to explore if less invasive approach feasible - Continue to explore option of SNF with life vest with further discussions this week, pending planfor wire in PA OBJECTIVE Vitals Most Recent: Vitals: 07/15/24 0745 BP: 122/70 Pulse: 78 Resp: 22 Temp: 36.4 ??C (97.5 ??F) SpO2: 98% 24 Hour Min/Max: Temp Min: 36.4 ??C (97.5 ??F) Max: 37 ??C (98.6 ??F) Pulse Min: 66 Max: 94 BP Min: 86/74 Max: 124/86 Resp Min: 20 Max: 22 SpO2 Min: 91 % Max: 98 % Intake/Output No intake or output data in the 24 hours ending 07/15/24 09 Current Medications Scheduled Meds: Scheduled Medications Medication Dose Route Frequency apixaban (ELIQUIS) tablet 5 mg 5 mg oral Q12H [facility] ceFAZolin (ANCEF) 2,000 mg/20 mL in sterile water (premix) 2,000 mg 2,000 mg intravenous Q8H [facility] escitalopram (LEXAPRO) tablet 10 mg 10 mg oral Daily furosemide (LASIX) tablet 40 mg 40 mg oral Daily insulin glargine (LANTUS, SEMGLEE) 100 unit/mL injection 22 Units 22 Units subcutaneous QAM insulin lispro (HumaLOG, ADMELOG) 100 unit/mL injection 0-10 Units 0-10 Units subcutaneous TID withmeals insulin lispro (HumaLOG, ADMELOG) 100 unit/mL injection 0-5 Units 0-5 Units subcutaneous Nightly insulin lispro (HumaLOG, ADMELOG) 100 unit/mL injection 9 Units 9 Units subcutaneous TID with meals levothyroxine (SYNTHROID) tablet 75 mcg 75 mcg oral Daily - 0600 magnesium oxide (MAG-OX) tablet 400 mg 400 mg oral Daily metoprolol XL (TOPROL-XL) extended release tablet 50 mg 50 mg oral Daily mirabegron ER (MYRBETRIQ) extended release tablet 25 mg 25 mg oral Daily nortriptyline (PAMELOR) capsule 10 mg 10 mg oral Daily pantoprazole DR (PROTONIX) extended release tablet 20 mg 20 mg oral Daily sacubitriL-valsartan (ENTRESTO) 24-26 mg tablet 1 tablet 1 tablet oral BID senna-docusate (PERICOLACE) 8.6-50 mg per tablet 1 tablet 1 tablet oral BID sodium chloride 0.9% flush 0.5-20 mL 0.5-20 mL intra-catheter Q8H [facility] spironolactone (ALDACTONE) split tablet 12.5 mg 12.5 mg oral Daily Continuous Meds: Current Facility-Administered Medications Medication Dose Route Frequency Last Admin Lactated Ringer's 30 mL/hr intravenous Continuous New Bag at 07/13/24 1516 PRN Meds: PRN Medications Medication Dose Route Frequency Last Admin acetaminophen (TYLENOL) tablet 650 mg 650 mg oral Q4H PRN 650 mg at 07/14/24 1751 Carrier Fluids for Secondary Infusion - 0.9% Sodium Chloride 30 mL intravenous PRN cyclobenzaprine (FLEXERIL) tablet 5 mg 5 mg oral TID PRN 5 mg at 07/14/24 2134 dextrose gel in packet 15 g 15 g oral Q15 Min PRN Or dextrose (D10W) 10% bolus 250 mL 250 mL intravenous Q15 Min PRN glucagon injection 1 mg 1 mg intramuscular Q30 Min PRN lidocaine (LMX) 4 % cream 1 Application 1 Application topical QID PRN ondansetron ODT (ZOFRAN-ODT) disintegrating tablet 4 mg 4 mg oral Q6H PRN Or ondansetron (ZOFRAN) injection 4 mg 4 mg intravenous Q6H PRN 4 mg at 07/13/24 1728 polyethylene glycol (MIRALAX) packet 17 g 17 g oral Daily PRN ramelteon (ROZEREM) tablet 8 mg 8 mg oral Nightly PRN 8 mg at 07/14/242133 sodium chloride 0.9% flush 0.5-20 mL 0.5-20 mL intra-catheter PRN Physical Exam Gen: No apparent distress. Resting comfortably. Cooperative. HEENT: No conjunctival pallor or injection, no icterus. No nasal discharge. Moist mucus membranes. Cardiac: Irregularly irregular rate and rhythm, normal S1/S2. No murmurs. No JVD. No S3/S4. No LE edema. Peripheral pulses 2+ bilaterally. Pulm: Clear to auscultation bilaterally. No wheezing or rhonchi. Abdomen: Soft. Bowel sounds present. No tenderness or distension. Extremity: Warm. No edema. No clubbing or cyanosis. MSK: Paraspinal tenderness around T10-12, no erythema Neuro: Alert and orientedx3. Sensation intact throughout to light touch. Tender to palpation in lower spine midline and on right side (unchanged). Unable to respond to complex questions, forgets information between conversations. Skin: No lesions, erythema, or skin changes. Psych: Mood appropriate. Appropriate insight. Laboratory Results Recent Results (from the past 24 hour(s)) POCT glucose Collection Time: 07/14/24 11:26 AM Result Value Ref Range Glucose, POC 310 (H) 70 - 199 mg/dL aPTT Collection Time: 07/14/24 11:54 AM Result Value Ref Range aPTT 27 (L) 28 - 38 sec Protime-INR Collection Time: 07/14/24 11:54 AM Result Value Ref Range PT 12.1 9.7 - 13.0 sec INR 1.12 0.90 - 1.20 POCT glucose Collection Time: 07/14/24 4:14 PM Result Value Ref Range Glucose, POC 184 70 - 199 mg/dL POCT glucose Collection Time: 07/14/24 8:26 PM Result Value Ref Range Glucose, POC 100 70 - 199 mg/dL CBC without differential Collection Time: 07/14/24 9:36 PM Result Value Ref Range WBC 6.7 3.8 - 9.9 K/cumm Hgb 11.2 (L) 11.9 - 15.5 g/dL Hct 34.2 (L) 35.6 - 45.5 % Plt 230 150 - 400 K/cumm MPV 9.7 9.1 - 12.3 fL RBC 3.43 (L) 3.90 - 5.20 M/cumm MCV 99.7 (H) 81.3 - 96.4 fL MCH 32.7 27.1 - 33.3 pg MCHC 32.7 32.3 - 35.7 g/dL RDW CV 14.1 11.1 - 14.9 % RDW SD 51.3 (H) 35.7 - 48.1 fL NRBC abs 0.00 0.00 - 0.01 K/cumm Creatinine Collection Time: 07/14/24 9:36 PM Result Value Ref Range Creatinine 0.80 0.60 - 1.10 mg/dL Magnesium Collection Time: 07/14/24 9:36 PM Result Value Ref Range Magnesium 1.9 1.4 - 2.5 mg/dL eGFR Collection Time: 07/14/24 9:36 PM Result Value Ref Range eGFR 83 >=60 mL/min/1.73 m2 Comprehensive metabolic panel Collection Time: 07/14/24 9:36 PM Result Value Ref Range Sodium 140 135 - 145 mmol/L Potassium, pl 3.9 3.3 - 4.9 mmol/L Chloride 100 97 - 110 mmol/L CO2 34 (H) 22 - 32 mmol/L Anion gap 6 2 - 15 mmol/L BUN 18 6 - 25 mg/dL Creatinine 0.80 0.60 - 1.10 mg/dL Glucose 85 70 - 199 mg/dL Calcium 9.7 8.5 - 10.3 mg/dL Bilirubin, total 0.3 0.1 - 1.2 mg/dL Protein, pl 7.5 6.5 - 8.5 g/dL Albumin 3.4 (L) 3.5 - 5.0 g/dL Alk phos 156 (H) 40 - 130 Units/L ALT 6 (L) 7 - 45 Units/L AST 23 10 - 45 Units/L POCT glucose Collection Time: 07/15/24 8:48 AM Result Value Ref Range Glucose, POC 160 70 - 199 mg/dL Imaging Results XR Chest 1 View Narrative: EXAMINATION: XR CHEST 1 VIEW COMPARISON: 07/11/2024 4:12 PM Impression: There has been interval removal of a [...] enlargement. Electronically signed by: Liban Graff M.D. ASSESSMENT & PLAN Lei Rodriguez is a 63 y.o. female with a PMHx significant for MSSA bacteremia (05/2024), A-fib,HFrEF (EF 30%), T2DM, GERD, Intellectual disability, OAB, JOSE, and hypothyroidism who presented to OSH 06/28 for back pain. Found to have + blood cx for staph aureus and CT c/f OM. Tx to [facility] for further evaluation and treatment. 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 #MSSA TV Endocarditis, recurrent, secondary to infected ICD lead #History of Vfib/VT Recent admit 05/2024 for MSSA bacteremia. Per outside hospital, TTE and GT no vegetations on valvesor on ICD wires. Treated with 4 weeks of IV Ancef ending 06/21. Review of ID notes from OSH show blood cultures remained clear on 06/13. 07/01 blood cx were drawn x2, 10/11 then second set 11/11 MSSA. Vanc+ Ancef started, Vanc d/c 07/03. 07/02 cx NGTD. Concern for lack of source control given recurrence, with potential sources including ICD, heart valves, osteomyelitis of spine given patient's back pain. Ongoing assessment throughout admission. BCx on admission 07/08/24 no growth, HIV NR. TTE 07/07/24 demonstrated echodensity on V lead of ICD, GT demonstrating vegetation on TV without vegetation on ICD, as well as thrombus in LA. ICD was interrogated showing shocks on 06/10/24 for ventricular arrhythmia, not pacer dependent. ICD removed 07/13/24. Per multidisciplinary discussion with CTS, valvular, not a candidate for angiovac or TV surgery. Potential ongoing sources include spine (MRI pending) and wire in PA seen on repeat imaging 07/14. Current Plan: - Cardiac surgery, EP, ID consulted, appreciate ongoing recommendations - continue Ancef 2g Q8 - MRI spine pending - continuous tele 07/15 updates: - Will need 14 days Ancef after ICD removal before re-implantation and at least 6 weeks total therapy - Per ID, right atrial vegetation does not impact management - Would like retained wire removed if feasible. Engaged vascular for consideration if possible to remove, awaiting recommendations - plan to discuss feasibility of eventual transfer to SNF with life-vest while receiving IV Abx course. Will re-engage discussion tomorrow following recommendations from vascular surgery #HFrEF - compensated EF of 30% on 05/2024 echocardiogram, mild-mod MR, RVSP 42 mild-mod TR. On chart review, patient hadHFrEF dating back to at least 2016, though etiology of this not clearly established. Current GDMT includes metoprolol, Entresto 24-26 BID, furosemide 40 daily - Not on Farxiga due to recurrent UTI - Initiated spironolactone 12.5 mg 07/09 - Consider up-titrating Entresto if BP allows during admission - Obtain CTA coronary to evaluate for ischemic etiology of HFrEF #Persistent atrial fibrillation #MAULIK Thrombus In AFib on admission. Previously on Tikosyn, however, taken off of Tikosyn after admission for MSSA, and was continued on Xarelto for AC and Coreg for rate control in May. GT in May 2024 performed to eval for endocarditis showed LA thrombus; had been on Xarelto at the time per chart review. At OSH just prior to this admission, patient had RVR and received dual tim blockade with dilt and metoprolol, stopped dilt 2/2 reduced EF and continued on metoprolol . - anticoagulation: heparin gtt -> Eliquis 07/14 - rate control with metoprolol given recent Afib RVR #T2DM Home regimen: glargine 18u; Lispro 10 TID + SSI. A1c here 7.7 on 07/07/24. - Currently on Lantus 22 and mealtime 9 TID + HDSSI given hyperglycemia - POC glucose TIDAC #Anemia: Hgb 10.8 on arrival. Bl: 11-12. MCV elevated. B12 > 1000 at OSH, Folate wnl. CTM #Recurrent UTI #OAB Per family, has been treated multiple times recently for UTIs. Her symptoms are not urinary in nature, her symptoms typically are becoming delirious and belligerent. UA at outside hospital with 0-5 WBC, 3+ nitrate. Cx was performed which showed >100,000 colonies E coli. Given recurrence of events, would consider colonization versus recurrent UTI. - Did not treat given favoring colonization over UTI without specific symptoms, ongoing symptoms more likely attributed to bacteremia - Given ongoing concerns with family surrounding possible UTI, ordered culture 07/10, pending - Home Vibegron 75 --> change to Mirabegron for formulary #Hypothyroidism: Synthroid 75mcg, TSH 2.8 #Depression: Continue Lexapro 10, nortriptyline 10 #GERD: Pantoprazole 20 #Constipation: Senna-Docusate BID #JOSE: ordered CPAP, pt reportedly intermittently compliant at home #Hx of intellectual disability/developmental delay: Sister Dilia currently takes care of patient, other sister Peg assists. Both discuss pt medical decisions together. Patient is not consentable Code Status: Full Code Disposition: pending Best contact: Primary Emergency Contact: Dilia Moise Diet: Adult Diet Restricted; 2 GM Sodium, Low Fat, Low Chol VTE Prophylaxis: Eliquis 5 BID PT: PT Recommendation/Plan: Jail Facility OT:OT Recommendation: Jail Facility Valentina Kevin, MD PGY-1 Internal Medicine Cosigned by Ynes Roman MD at 07/15/2024 7:40 PM CDT Associated attestation - Ynes Roman MD - 07/15/2024 7:40 PM CDT Attending Documentation I have seen and examined the patient on 07/15/24. I agree with the findings and plan of care as documented in the resident's/fellow's note. Supplementary Attestation Today, I am treating the patient for endocarditis as described in the note, s/p explantation of infected lead on IV abx, appreciated ID recommendations for shelter tx. CTS and vascular to weigh on retained wire found on imaging. Ynes Roman MD 07/15/2024 7:26 PM * Azeem Mai Meng, MD - 07/14/2024 9:17 AM CDT Medicine Daily Progress Note Patient: Lei Rodriguez : 1960 (63 y.o.) Date of Admission: 07/07/2024 Date of Service: 07/14/24 SUBJECTIVE Interval Events: - s/p ICD lead extraction, unclear if remaining PA wire was removed - intra-op GT noted new mobile mass on central line near TV vegetation, central line was removed - POD1: Needs at least 14 days of IV ancef after removal prior to consideration of ICD implantationand 6w total - VSS and WNL overnight. Net negative -490 with 2.4L UOP - Compliant with tele: predominantly rate-controlled AFib Patient doing well overall. Endorses some pain near ICD lead extraction sites. Paraspinal back painunchanged. Requesting martines removal. Plan for Today: - resume AC -> transition to home Xarelto - repeat CXR today - CTA coronaries for ischemic work-up - MRI spine scheduled for next week - Dispo: plan to discuss feasibility of eventual transfer to SNF with life-vest while receiving IV Abx course and awaiting decision on ICD with interdisciplinary team and consult services OBJECTIVE Vitals Most Recent: Vitals: 07/14/24 0816 BP: 125/57 Pulse: 98 Resp: 19 Temp: 36.6 ??C (97.9 ??F) SpO2: 93% 24 Hour Min/Max: Temp Min: 36 ??C (96.8 ??F) Max: 36.6 ??C (97.9 ??F) Pulse Min: 80 Max: 98 BP Min: 115/70 Max: 152/79 Resp Min: 17 Max: 24 SpO2 Min: 89 % Max: 99 % Intake/Output Intake/Output Summary (Last 24 hours) at 07/14/2024 0917 Last data filed at 07/14/2024 0625 Gross per 24 hour Intake 1910 ml Output 2400 ml Net -490 ml Current Medications Scheduled Meds: Scheduled Medications Medication Dose Route Frequency ceFAZolin (ANCEF) 2,000 mg/20 mL in sterile water (premix) 2,000 mg 2,000 mg intravenous Q8H [facility] escitalopram (LEXAPRO) tablet 10 mg 10 mg oral Daily furosemide (LASIX) tablet 40 mg 40 mg oral Daily insulin glargine (LANTUS, SEMGLEE) 100 unit/mL injection 18 Units 18 Units subcutaneous QAM insulin lispro (HumaLOG, ADMELOG) 100 unit/mL injection 0-10 Units 0-10 Units subcutaneous TID withmeals insulin lispro (HumaLOG, ADMELOG) 100 unit/mL injection 0-5 Units 0-5 Units subcutaneous Nightly insulin lispro (HumaLOG, ADMELOG) 100 unit/mL injection 9 Units 9 Units subcutaneous TID with meals levothyroxine (SYNTHROID) tablet 75 mcg 75 mcg oral Daily - 0600 magnesium oxide (MAG-OX) tablet 400 mg 400 mg oral Daily metoprolol XL (TOPROL-XL) extended release tablet 50 mg 50 mg oral Daily mirabegron ER (MYRBETRIQ) extended release tablet 25 mg 25 mg oral Daily nortriptyline (PAMELOR) capsule 10 mg 10 mg oral Daily pantoprazole DR (PROTONIX) extended release tablet 20 mg 20 mg oral Daily sacubitriL-valsartan (ENTRESTO) 24-26 mg tablet 1 tablet 1 tablet oral BID senna-docusate (PERICOLACE) 8.6-50 mg per tablet 1 tablet 1 tablet oral BID sodium chloride 0.9% flush 0.5-20 mL 0.5-20 mL intra-catheter Q8H [facility] spironolactone (ALDACTONE) split tablet 12.5 mg 12.5 mg oral Daily Continuous Meds: Current Facility-Administered Medications Medication Dose Route Frequency Last Admin [Held by Provider] heparin 0-33 Units/kg/hr intravenous Titrated Stopped at 07/13/24 0923 Lactated Ringer's 30 mL/hr intravenous Continuous New Bag at 07/13/24 1516 norepinephrine 0-2 mcg/kg/min intravenous Titrated Stopped at 07/13/24 1737 PRN Meds: PRN Medications Medication Dose Route Frequency Last Admin acetaminophen (TYLENOL) tablet 650 mg 650 mg oral Q4H PRN 650 mg at 07/14/24 0614 Carrier Fluids for Secondary Infusion - 0.9% Sodium Chloride 30 mL intravenous PRN cyclobenzaprine (FLEXERIL) tablet 5 mg 5 mg oral TID PRN 5 mg at 07/12/24 1023 dextrose gel in packet 15 g 15 g oral Q15 Min PRN Or dextrose (D10W) 10% bolus 250 mL 250 mL intravenous Q15 Min PRN glucagon injection 1 mg 1 mg intramuscular Q30 Min PRN heparin 1,000 unit/mL injection 4,500 Units 40 Units/kg intravenous Q6H PRN 4,500 Units at 0 Or heparin 1,000 unit/mL injection 9,100 Units 80 Units/kg intravenous Q6H PRN lidocaine (LMX) 4 % cream 1 Application 1 Application topical QID PRN ondansetron ODT (ZOFRAN-ODT) disintegrating tablet 4 mg 4 mg oral Q6H PRN Or ondansetron (ZOFRAN) injection 4 mg 4 mg intravenous Q6H PRN 4 mg at 07/13/24 1728 polyethylene glycol (MIRALAX) packet 17 g 17 g oral Daily PRN ramelteon (ROZEREM) tablet 8 mg 8 mg oral Nightly PRN 8 mg at 07/11/24 2108 sodium chloride 0.9% flush 0.5-20 mL 0.5-20 mL intra-catheter PRN Physical Exam Gen: No apparent distress. Resting comfortably. Cooperative. HEENT: No conjunctival pallor or injection, no icterus. No nasal discharge. Moist mucus membranes. Cardiac: Irregularly irregular rate and rhythm, normal S1/S2. No murmurs. No JVD. No S3/S4. No LE edema. Peripheral pulses 2+ bilaterally. Pulm: Clear to auscultation bilaterally. No wheezing or rhonchi. Abdomen: Soft. Bowel sounds present. No tenderness or distension. Extremity: Warm. No edema. No clubbing or cyanosis. MSK: Paraspinal tenderness around T10-12, no erythema Neuro: Alert and orientedx3. Sensation intact throughout to light touch. Tender to palpation in lower spine midline and on right side (unchanged). Unable to respond to complex questions, forgets information between conversations. Skin: No lesions, erythema, or skin changes. Psych: Mood appropriate. Appropriate insight. Laboratory Results Recent Results (from the past 24 hour(s)) POCT glucose Collection Time: 07/13/24 11:45 AM Result Value Ref Range Glucose, POC 108 70 - 199 mg/dL POCT glucose Collection Time: 07/13/24 3:01 PM Result Value Ref Range Glucose, POC 70 70 - 199 mg/dL Type and screen Collection Time: 07/13/24 3:09 PM Result Value Ref Range ABO Rh O Positive Marguerite, indirect Negative Prepare RBC: 2 Units Collection Time: 07/13/24 4:37 PM Result Value Ref Range Product code U1695A44 Unit Number [id number] Product Blood Type OPOS Dispense Status RETURNED Product code U6649O03 Unit Number [id number] Product Blood Type OPOS Dispense Status RETURNED POC Blood Gas and Chemistries, Arterial - Collection Time: 07/13/24 5:18 PM Result Value Ref Range pH, Art POC 7.44 7.35 - 7.45 pCO2, Art POC 41 35 - 45 mmHg pO2, Art POC 265 (H) 83 - 108 mmHg Na, POC 140 135 - 145 mmol/L K POC 3.4 3.3 - 4.9 mmol/L Cl, POC 104 97 - 110 mmol/L Ionized Ca, POC 4.98 4.50 - 5.10 mg/dL Glucose, POC 82 70 - 199 mg/dL Lactate, POC 1.2 0.7 - 2.2 mmol/L SO2 (hugo) arterial 100 (H) 90 - 95 % Base excess, POC 3.3 mmol/L HCO3, Art POC 28 20 - 30 mmol/L Hct, POC 33.0 (L) 36.3 - 45.3 % Total Hb, POC 11.1 (L) 11.9 - 15.5 g/dL Aerobic culture and gram stain Hardware Lead Collection Time: 07/13/24 5:34 PM Specimen: Lead; Hardware Result Value Ref Range Direct Specimen Exam Stain: Few polymorphonuclear leukocytes seen. No organisms seen. Report Preliminary Report: No growth to date. Aerobic culture and gram stain Hardware Lead Collection Time: 07/13/24 5:34 PM Specimen: Lead; Hardware Result Value Ref Range Direct Specimen Exam Stain: Rare polymorphonuclear leukocytes seen. No organisms seen. Report Preliminary Report: Culture results pending. POCT glucose Collection Time: 07/13/24 7:58 PM Result Value Ref Range Glucose, POC 186 70 - 199 mg/dL Comprehensive metabolic panel Collection Time: 07/13/24 9:00 PM Result Value Ref Range Sodium 137 135 - 145 mmol/L Potassium, pl 4.4 3.3 - 4.9 mmol/L Chloride 99 97 - 110 mmol/L CO2 30 22 - 32 mmol/L Anion gap 8 2 - 15 mmol/L BUN 13 6 - 25 mg/dL Creatinine 0.80 0.60 - 1.10 mg/dL Glucose 310 (H) 70 - 199 mg/dL Calcium 9.4 8.5 - 10.3 mg/dL Bilirubin, total 0.3 0.1 - 1.2 mg/dL Protein, pl 7.6 6.5 - 8.5 g/dL Albumin 3.5 3.5 - 5.0 g/dL Alk phos 158 (H) 40 - 130 Units/L ALT 12 7 - 45 Units/L AST 46 (H) 10 - 45 Units/L eGFR Collection Time: 07/13/24 9:00 PM Result Value Ref Range eGFR 83 >=60 mL/min/1.73 m2 Magnesium Collection Time: 07/13/24 9:00 PM Result Value Ref Range Magnesium 1.8 1.4 - 2.5 mg/dL CBC without differential Collection Time: 07/13/24 9:03 PM Result Value Ref Range WBC 5.6 3.8 - 9.9 K/cumm Hgb 11.1 (L) 11.9 - 15.5 g/dL Hct 35.5 (L) 35.6 - 45.5 % Plt 242 150 - 400 K/cumm MPV 9.4 9.1 - 12.3 fL RBC 3.46 (L) 3.90 - 5.20 M/cumm MCV 102.6 (H) 81.3 - 96.4 fL MCH 32.1 27.1 - 33.3 pg MCHC 31.3 (L) 32.3 - 35.7 g/dL RDW CV 14.2 11.1 - 14.9 % RDW SD 52.8 (H) 35.7 - 48.1 fL NRBC abs 0.00 0.00 - 0.01 K/cumm POCT glucose Collection Time: 07/14/24 8:17 AM Result Value Ref Range Glucose, POC 248 (H) 70 - 199 mg/dL POCT glucose Collection Time: 07/14/24 8:18 AM Result Value Ref Range Glucose, POC 331 (H) 70 - 199 mg/dL Imaging Results Transesophageal Echo (GT) W Doppler/CF Patient name: Lei Rodriguez Date of test: 07/10/2024 Date of : 1960 (F) Hospital #: 0 Location: [facility] Cardiac Diagnostic Lab Interpreted by: Da Ayala MD Statistics Teacher: Emily King MD RN: Reason for Test: [...] 2=Hypo 3=Akinetic 4=Dyskin. 5=Aneurysm 0=Not visualized) Short [place]-Gastric:=2 S=2 I=2 P=2 L=2 A=2 Long [place]-Gastric:BP=2 BA=2 MP=2 MA=2 AP=2 AA=2 Chamber Dimensions: RA: increased LA: increased, 5 cm RV: Normal LV: mildly dilated LV function: Moderate global left ventricular dysfunction. RV function: Normal Pericardium: No pericardial effusion seen Diastolic function: not assessed Atrial Septum: Normal Wall Thickness: RV: Normal LV: Normal Sedation/Tolerance: Sedation: GT performed with monitored anesthesia care Meds Admin: [...] no MS, mild TV regurgitation, normal PV. Emily King performed the GT probe placement with Da Ayala MD present. [...] 07/10/2024 - 12:46:57 by Da Ayala MD Abrasive Sawyer: Emily King By signing this report, the attending arboreal scientist certifies that he or she has personally supervised and interpreted the echocardiogram and has reviewed and or edited and agrees with the written comments contained within the report. Intra-Op GT 07/13/24: Ventricles: Left ventricle: Cavity size: normal Hypertrophy: [...] inferior: hypokinetic 16- Apical septal: hypokinetic 17- [place]: hypokinetic Valves: Aortic Valve: Annulus: normal Leaflet [...] Pulmonary venous flow: blunted systolic flow Pre-procedure GT exam summary: There is moderate LV dysfunction with an estimated LVEF of 30-35%. There is mildly reduced RV function with moderate TR. There is a large vegetation on the tricuspid leaflet vs pacing wire (favoring tricuspid valve) Summary: There is a new highly mobile dentisty seen in the RA. It is unclear whether or not it is attached to the new central line or not. The vegetation and TR severity is unchanged. There is no pericardial effusion,. ASSESSMENT & PLAN Lei Rodriguez is a 63 y.o. female with a PMHx significant for MSSA bacteremia (05/2024), A-fib,HFrEF (EF 30%), T2DM, GERD, Intellectual disability, OAB, JOSE, and hypothyroidism who presented to OSH 06/28 for back pain. Found to have + blood cx for staph aureus and CT c/f OM. Tx to [facility] for further evaluation and treatment. 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 #MSSA TV Endocarditis, recurrent, secondary to infected ICD lead #History of Vfib/VT Recent admit 05/2024 for MSSA bacteremia. Per outside hospital TTE and GT no vegetations on valves or on ICD wires. Treated with 4 weeks of IV Ancef ending 06/21. Review of ID notes from OSH show blood cultures remained clear on 06/13. 07/01 blood cx were drawn x2, 1/ then second set /2 MSSA. Vanc + Ancef started, Vanc d/c 07/03. 07/02 cx NGTD. Concern for lack of source control given recurrence, with potential sources including ICD, heart valves, osteomyelitis of spine given patient's back pain.ICD most likely given TTE findings, cannot rule out valves or spine presently. If ICD involved, patient will need source control. Currently no signs of sepsis. - blood cultures redrawn on admission 07/08, NGTD - TTE 07/07/24 performed to re-evaluate leads demonstrating echodensity on V lead of ICD. GT 07/10/24 demonstrating vegetation on TV, no vegetation on ICD, thrombus in LA - continue Ancef 2g Q8 - ICD: placed 2017 per sister, recurrent events of VF/VT requiring shocks, most recently 5 shocks on 06/10/24. Interrogated 07/07 (full results in folder), not pacer dependent - Cardiac surgery, EP, ID consulted, appreciate ongoing recommendations - HIV NR - MRI spine pending - continuous tele - S/p lead extraction, POD1: will need 14 days Q8 IV ancef after ICD removal before re-implantation, at least 6 weeks total therapy - plan to discuss feasibility of eventual transfer to SNF with life-vest while receiving IV Abx course and awaiting decision on ICD with interdisciplinary team and consult services #HFrEF - compensated EF of 30% on 05/2024 echocardiogram, mild-mod MR, RVSP 42 mild-mod TR. On chart review, patient hadHFrEF dating back to at least 2016, though etiology of this not clearly established. Current GDMT includes metoprolol, Entresto 24-26 BID, furosemide 40 daily - Not on Farxiga due to recurrent UTI - Initiated spironolactone 12.5 mg 07/09 - Consider up-titrating Entresto if BP allows during admission - Obtain CTA coronary to evaluate for ischemic etiology of HFrEF; defer to next week given procedure #Persistent atrial fibrillation #MAULIK Thrombus In AFib on admission. Previously on Tikosyn, however, taken off of Tikosyn after admission for MSSA, and was continued on Xarelto for AC and Coreg for rate control in May. GT in May 2024 performed to eval for endocarditis showed LA thrombus; had been on Xarelto at the time per chart review. At OSH just prior to this admission, patient had RVR and received dual tim blockade with dilt and metoprolol, stopped dilt 2/2 reduced EF and continued on metoprolol . - anticoagulation: Heparin gtt in preparation for upcoming procedures - rate control with metoprolol given recent Afib RVR #T2DM Home regimen: glargine 18u; Lispro 10 TID + SSI. A1c here 7.7 on 07/07/24. - Glargine at OSH 18u, Lispro 6u TID -> 7 units TID 07/09 -> 9 units TID 07/11 - POC glucose TIDAC #Anemia: Hgb 10.8 on arrival. Bl: 11-12. MCV elevated. B12 > 1000 at OSH, Folate wnl. CTM #Recurrent UTI #OAB Per family, has been treated multiple times recently for UTIs. Her symptoms are not urinary in nature, her symptoms typically are becoming delirious and belligerent. UA at outside hospital with 0-5 WBC, 3+ nitrate. Cx was performed which showed >100,000 colonies E coli. Given recurrence of events, would consider colonization versus recurrent UTI. - Did not treat given favoring colonization over UTI without specific symptoms, ongoing symptoms more likely attributed to bacteremia - Given ongoing concerns with family surrounding possible UTI, ordered culture 07/10, pending - Home Vibegron 75 --> change to Mirabegron for formulary #Hypothyroidism: Synthroid 75mcg, TSH 2.8 #Depression: Continue Lexapro 10, nortriptyline 10 #GERD: Pantoprazole 20 #Constipation: Senna-Docusate BID #JOSE: ordered CPAP, pt reportedly intermittently compliant at home #Hx of intellectual disability/developmental delay: Sister Dilia currently takes care of patient, other sister Peg assists. Both discuss pt medical decisions together. Patient is not consentable Code Status: Full Code Disposition: pending Best contact: Primary Emergency Contact: Dilia Moise Diet: Adult Diet Restricted; 2 GM Sodium, Low Fat, Low Chol VTE Prophylaxis: Heparin gtt PT: PT Recommendation/Plan: Jail Facility OT:OT Recommendation: Jail Facility (Simultaneous filing. User may not have seen previous data.) Azeem Mai MD Internal Medicine Resident Physician, PGY-1 07/14/2024 9:17 AM Cosigned by Ynes Roman MD at 07/14/2024 10:03 PM CDT Associated attestation - Ynes Roman MD - 07/14/2024 10:03 PM CDT Attending Documentation I have seen and examined the patient on 07/14/24. I agree with the findings and plan of care as documented in the resident's/fellow's note. Supplementary Attestation Today, I am treating the patient for endocarditis, ICD lead vegetation now s/p lead extraction as described in the note. Most recent creatinine was 0.80 which was used to determine medication dosing. Ynes Roman MD 07/14/2024 3:28 PM * Ha Martinez - 07/13/2024 11:19 AM CDT Occupational Therapy Occupational Therapy Progress Note NOTE: This is a summary note of the vaz components of the treatment session. For full details, review chart for all flowsheets documented on by this occupational therapy clinician on this date. Vitalsigns documented in vital signs flowsheet. Care plan progress documented in Care Plan Activity. For questions, please review the treatment team and contact the occupational therapist currently assigned to this patient. If an occupational therapist is not assigned to this patient, please call [phone]. 07/13/24 3101 General Chart Reviewed Yes Session Type Treatment Safe Environment Patient found in supine;Arm band checked;Gait belt utilized for all out of bed mobility Subjective Agreeable to Therapy Family/Caregiver Present No Precautions Precautions Fall risk ADL ADLS (WDL) X Grooming Grooming: Where assessed Chair Grooming: Level of assistance Moderate Assist Grooming: Assistance with Safety;Balance LE Dressing LE Dressing: Where assessed Edge of bed LE Dressing: Level of assistance Minimum Assist LE Dressing: Assistance with Balance;Safety;Pull up over hips Toilet Transfers Toilet Transfer From Chair with arms Toilet Transfer Type To and from Toilet Transfer to Standard bedside commode Toilet Transfer Technique Ambulating Toilet Transfer: Equipment Wheeled walker Toilet Transfers Contact guard Toilet Transfers Comments for safety and balance Pain Assessment Pain Assessment 0-10 Pain Score 9 Pain Location Back (Lumbar) Pain Interventions Exercise;Distraction Cognition Arousal/Alertness Alert Attention Span Appears intact Memory Decreased short term memory Orientation Oriented to person Following Commands Follows one step commands with increased time Compliance/Behavior Easy to engage Balance Balance Yes Dynamic Sitting Balance Dynamic Sitting-Balance Support No upper extremity supported;Feet supported Dynamic Sitting-Balance Lateral lean;Forward lean;Reaching for objects;Reaching across midline Dynamic Sitting-Sitting Surface Bed Dynamic Sitting-Level of Assistance Close supervision Dynamic Standing Balance Dynamic Standing-Balance Support Bilateral upper extremity supported Dynamic Standing-Balance Forward lean;Lateral lean Dynamic Standing-Standing Surface Floor Dynamic Standing-Level of Assistance Contact guard Dynamic Standing-Comments for safety Bed Mobility Bed Mobility Yes Bed Mobility 1 Bed Mobility From 1 Supine Bed Mobility Type 1 To Bed Mobility to 1 Edge of bed Level of Assistance 1 Contact Guard Assist Bed Mobility Comments 1 for safety Transfers Transfer Yes Transfer 1 Transfer From 1 Sit Transfer Type 1 To and from Transfer to 1 Stand Technique 1 Sit to stand;Stand to sit Transfer Device 1 Wheeled walker Transfer Level of Assistance 1 Contact Guard Assist Trials/Comments 1 for balance and safety Transfers 2 Trials/Comments 2 Pt completes functional mobility using ww and CGA for balance and safety. Other Comments Comments Pt issued with and participated in HEP to improve/maintain B UE strength. Exercises include using soda can weight and completing movement 2 sets x 10 reps, 2-3 times per day. HEP includes elbow flexion and shoulder abduction. Pt verbaiizes and demo's understanding. Daily Activity - 6 Clicks Putting on and taking off regular lower body clothing 2 Bathing 2 Toileting 2 Putting on and taking off upper body clothing 3 Personal Grooming 2 Eating Meals 4 Total Score (range 6-24) 15 Score Interpretation 34.69 Safe Environment End of Therapy Session Safe Environment End of Therapy Session Patient left in recliner;Chair alarm in place and activated;RN notified;Call light within reach;Overbed table within reach Assessment Problem List Decreased upper extremity strength;Decreased safe judgment during ADL;Decreased cognition;Decreased endurance;Decreased balance;Decreased functional mobility;Decreased ADL independence;Decreased IADL independence;Decreased UE function;Decreased trunk control for functional activities;Decreased upper extremity function;Pain Barriers to Discharge Current Mobility Status;Current ADL Status;Cognition;Decreased safety awareness Plan Plan Continue with current plan;If this is the last note, consider this the discharge summary Recommendation/Plan OT Recommendation Jail Facility Patient at high risk for Falls;Readmission;Injury due to decreased ability to care for self;Injury due to reduced functional status;Injury due to impaired cognition;Injury due to balance deficits;Injury at home as patient has not returned to prior level of function;Cognitive decline due to decreased social participation;Mismanagement of medications;Prolonged dependence for self care tasks Recommend SNF due to Risk of injury at home;Unable to safely care for self in the home;Skilled therapy needed to address care for self in the home;Skilled therapy needed to address functional deficits;Skilled therapy needed for patient to return to prior level of independence OT Frequency during current admission 2-3x/wk OT - Next Appointment 07/16/24 OT - OK to Discharge No Time Calculation Start Time 1119 Stop Time 1143 Time Calculation (min) 24 min Multi-Disciplinary Problems (from Occupational Therapy) Active Problems Problem: Dressings Lower Extremities Start Date: 07/09/24 Goal Start Date Expected End Date End Date STG - Patient to complete lower body dressing with supervision using AE prn 07/09/24 07/23/24 -- Problem: Grooming Start Date: 07/09/24 Goal Start Date Expected End Date End Date STG - Patient will complete grooming standing at sink with min assist using wheeled walker 07/09/2410/14/24 -- Problem: Transfers Start Date: 07/09/24 Goal Start Date Expected End Date End Date STG - Patient will perform toilet transfer bed to bathroom toilet (raised prn) with supervision using wheeled walker 07/09/24 07/23/24 -- Problem: OT Misc Start Date: 07/09/24 Goal Start Date Expected End Date End Date OT LTG - Patient will be modified independent with ADLs and in room functional mobility. 07/09/24 08/06/24 -- Cosigned by Adal Manuel OT at 07/13/2024 2:20 PM CDT * Azeem Mai Meng, MD - 07/13/2024 8:41 AM CDT Medicine Daily Progress Note Patient: Lei Rodriguez : 1960 (63 y.o.) Date of Admission: 07/07/2024 Date of Service: 07/13/24 SUBJECTIVE Interval Events: - Patient refused labs last night despite efforts from multiple providers - Patient doing well this morning, mood is improved, denies dyspnea, CP, palpitations. Endorses worsening paraspinal back pain over the last several days and needs to lay on sides - She is scheduled for lead extraction today - VSS and WNL overnight, I/O not well documented Plan for Today: - MRI spine scheduled for next week - Add-on to OR for lead extraction, holding heparin for procedure - continuous tele after procedure - will plan for PICC given plan for IV Abx and refusing labs - defer CTA coronaries to next week given impending procedure OBJECTIVE Vitals Most Recent: Vitals: 07/13/24 0801 BP: 126/74 Pulse: 83 Resp: 18 Temp: 36.4 ??C (97.5 ??F) SpO2: 96% 24 Hour Min/Max: Temp Min: 36.4 ??C (97.5 ??F) Max: 37.1 ??C (98.8 ??F) Pulse Min: 60 Max: 90 BP Min: 103/77 Max: 126/74 Resp Min: 16 Max: 18 SpO2 Min: 96 % Max: 98 % Intake/Output Intake/Output Summary (Last 24 hours) at 07/13/2024 0841 Last data filed at 07/12/2024 2348 Gross per 24 hour Intake 450 ml Output -- Net 450 ml Current Medications Scheduled Meds: Scheduled Medications Medication Dose Route Frequency ceFAZolin (ANCEF) 2,000 mg/20 mL in sterile water (premix) 2,000 mg 2,000 mg intravenous Q8H GALINA escitalopram (LEXAPRO) tablet 10 mg 10 mg oral Daily furosemide (LASIX) tablet 40 mg 40 mg oral Daily insulin glargine (LANTUS, SEMGLEE) 100 unit/mL injection 18 Units 18 Units subcutaneous QAM insulin lispro (HumaLOG, ADMELOG) 100 unit/mL injection 0-10 Units 0-10 Units subcutaneous TID withmeals insulin lispro (HumaLOG, ADMELOG) 100 unit/mL injection 0-5 Units 0-5 Units subcutaneous Nightly insulin lispro (HumaLOG, ADMELOG) 100 unit/mL injection 9 Units 9 Units subcutaneous TID with meals levothyroxine (SYNTHROID) tablet 75 mcg 75 mcg oral Daily - 0600 magnesium oxide (MAG-OX) tablet 400 mg 400 mg oral Daily metoprolol XL (TOPROL-XL) extended release tablet 50 mg 50 mg oral Daily mirabegron ER (MYRBETRIQ) extended release tablet 25 mg 25 mg oral Daily nortriptyline (PAMELOR) capsule 10 mg 10 mg oral Daily pantoprazole DR (PROTONIX) extended release tablet 20 mg 20 mg oral Daily sacubitriL-valsartan (ENTRESTO) 24-26 mg tablet 1 tablet 1 tablet oral BID senna-docusate (PERICOLACE) 8.6-50 mg per tablet 1 tablet 1 tablet oral BID sodium chloride 0.9% flush 0.5-20 mL 0.5-20 mL intra-catheter Q8H GALINA spironolactone (ALDACTONE) split tablet 12.5 mg 12.5 mg oral Daily Continuous Meds: Current Facility-Administered Medications Medication Dose Route Frequency Last Admin [Held by Provider] heparin 0-33 Units/kg/hr intravenous Titrated 15 Units/kg/hr at 07/13/24 0725 PRN Meds: PRN Medications Medication Dose Route Frequency Last Admin acetaminophen (TYLENOL) tablet 650 mg 650 mg oral Q4H PRN 650 mg at 07/13/24 0611 Carrier Fluids for Secondary Infusion - 0.9% Sodium Chloride 30 mL intravenous PRN cyclobenzaprine (FLEXERIL) tablet 5 mg 5 mg oral TID PRN 5 mg at 07/12/24 1023 dextrose gel in packet 15 g 15 g oral Q15 Min PRN Or dextrose (D10W) 10% bolus 250 mL 250 mL intravenous Q15 Min PRN glucagon injection 1 mg 1 mg intramuscular Q30 Min PRN heparin 1,000 unit/mL injection 4,500 Units 40 Units/kg intravenous Q6H PRN 4,500 Units at Or heparin 1,000 unit/mL injection 9,100 Units 80 Units/kg intravenous Q6H PRN lidocaine (LMX) 4 % cream 1 Application 1 Application topical QID PRN ondansetron ODT (ZOFRAN-ODT) disintegrating tablet 4 mg 4 mg oral Q6H PRN Or ondansetron (ZOFRAN) injection 4 mg 4 mg intravenous Q6H PRN polyethylene glycol (MIRALAX) packet 17 g 17 g oral Daily PRN ramelteon (ROZEREM) tablet 8 mg 8 mg oral Nightly PRN 8 mg at 07/11/242107 sodium chloride 0.9% flush 0.5-20 mL 0.5-20 mL intra-catheter PRN Physical Exam Gen: No apparent distress. Resting comfortably. Cooperative. HEENT: No conjunctival pallor or injection, no icterus. No nasal discharge. Moist mucus membranes. Cardiac: Irregularly irregular rate and rhythm, normal S1/S2. No murmurs. No JVD. No S3/S4. No LE edema. Peripheral pulses 2+ bilaterally. Pulm: Clear to auscultation bilaterally. No wheezing or rhonchi. Abdomen: Soft. Bowel sounds present. No tenderness or distension. Extremity: Warm. No edema. No clubbing or cyanosis. MSK: Paraspinal tenderness around T10-12, no erythema Neuro: Alert and orientedx3. Sensation intact throughout to light touch. Tender to palpation in lower spine midline and on right side (unchanged). Unable to respond to complex questions, forgets information between conversations. Skin: No lesions, erythema, or skin changes. Psych: Mood appropriate. Appropriate insight. Laboratory Results Recent Results (from the past 24 hour(s)) POCT glucose Collection Time: 07/12/24 11:01 PM Result Value Ref Range Glucose, POC 365 (H) 70 - 199 mg/dL CBC without differential Collection Time: 07/13/24 12:58 AM Result Value Ref Range WBC 5.0 3.8 - 9.9 K/cumm Hgb 10.7 (L) 11.9 - 15.5 g/dL Hct 33.9 (L) 35.6 - 45.5 % Plt 280 150 - 400 K/cumm MPV 10.5 9.1 - 12.3 fL RBC 3.35 (L) 3.90 - 5.20 M/cumm MCV 101.2 (H) 81.3 - 96.4 fL MCH 31.9 27.1 - 33.3 pg MCHC 31.6 (L) 32.3 - 35.7 g/dL RDW CV 14.3 11.1 - 14.9 % RDW SD 53.1 (H) 35.7 - 48.1 fL NRBC abs 0.00 0.00 - 0.01 K/cumm aPTT Collection Time: 07/13/24 12:58 AM Result Value Ref Range aPTT 60 (H) 28 - 38 sec POCT glucose Collection Time: 07/13/24 8:00 AM Result Value Ref Range Glucose, POC 144 70 - 199 mg/dL Imaging Results Transesophageal Echo (GT) W Doppler/CF Patient name: Lei Rodriguez Date of test: 07/10/2024 Date of : 1960 (F) Hospital #: 0 Location: [facility] Cardiac Diagnostic Lab Interpreted by: Da Ayala MD Statistics Teacher: Emily King MD RN: Reason for Test: [...] 2=Hypo 3=Akinetic 4=Dyskin. 5=Aneurysm 0=Not visualized) Short Okarche-Gastric:=2 S=2 I=2 P=2 L=2 A=2 Long Okarche-Gastric:BP=2 BA=2 MP=2 MA=2 AP=2 AA=2 Chamber Dimensions: RA: increased LA: increased, 5 cm RV: Normal LV: mildly dilated LV function: Moderate global left ventricular dysfunction. RV function: Normal Pericardium: No pericardial effusion seen Diastolic function: not assessed Atrial Septum: Normal Wall Thickness: RV: Normal LV: Normal Sedation/Tolerance: Sedation: GT performed with monitored anesthesia care Meds Admin: [...] no MS, mild TV regurgitation, normal PV. Emily King performed the GT probe placement with Da Ayala MD present. [...] 07/10/2024 - 12:46:57 by Da Ayala MD Abrasive Sawyer: Emily King By signing this report, the attending arboreal scientist certifies that he or she has personally supervised and interpreted the echocardiogram and has reviewed and or edited and agrees with the written comments contained within the report. ASSESSMENT & PLAN Lei Rodriguez is a 63 y.o. female with a PMHx significant for MSSA bacteremia (05/2024), A-fib,HFrEF (EF 30%), T2DM, GERD, Intellectual disability, OAB, JOSE, and hypothyroidism who presented to OSH 06/28 for back pain. Found to have + blood cx for staph aureus and CT c/f OM. Tx to [facility] for further evaluation and treatment. 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 #MSSA TV Endocarditis, recurrent, secondary to infected ICD lead #History of Vfib/VT Recent admit 05/2024 for MSSA bacteremia. Per outside hospital TTE and GT no vegetations on valves or on ICD wires. Treated with 4 weeks of IV Ancef ending 06/21. Review of ID notes from OSH show blood cultures remained clear on 06/13. 07/01 blood cx were drawn x2, 1/2 then second set 2/2 MSSA. Vanc + Ancef started, Vanc d/c 07/03. 07/02 cx NGTD. Concern for lack of source control given recurrence, with potential sources including ICD, heart valves, osteomyelitis of spine given patient's back pain.ICD most likely given TTE findings, cannot rule out valves or spine presently. If ICD involved, patient will need source control. Currently no signs of sepsis. - blood cultures redrawn on admission 07/08, NGTD - TTE 07/07/24 performed to re-evaluate leads demonstrating echodensity on V lead of ICD. GT 07/10/24 demonstrating vegetation on TV, no vegetation on ICD, thrombus in LA - continue Ancef 2g Q8 - ICD: placed 2017 per sister, recurrent events of VF/VT requiring shocks, most recently 5 shocks on 06/10/24. Interrogated 07/07 (full results in folder), not pacer dependent - Cardiac surgery, EP, ID consulted, appreciate ongoing recommendations - HIV NR - MRI spine pending - Per ID, will need 14 days of antibiotics after ICD removal before re- implantation, at least 6 weeks total therapy, send cultures if any valve surgery is done - CTS planning for surgery 07/13/24, EP aware, will need to diligently monitor for VT on telemetry (continuous telemetry order placed) #HFrEF - compensated EF of 30% on 05/2024 echocardiogram, mild-mod MR, RVSP 42 mild-mod TR. On chart review, patient hadHFrEF dating back to at least 2016, though etiology of this not clearly established. Current GDMT includes metoprolol, Entresto 24-26 BID, furosemide 40 daily - Not on Farxiga due to recurrent UTI - Initiated spironolactone 12.5 mg 07/09 - Consider up-titrating Entresto if BP allows during admission - Obtain CTA coronary to evaluate for ischemic etiology of HFrEF; defer to next week given procedure #Persistent atrial fibrillation #MAULIK Thrombus In AFib on admission. Previously on Tikosyn, however, taken off of Tikosyn after admission for MSSA, and was continued on Xarelto for AC and Coreg for rate control in May. GT in May 2024 performed to eval for endocarditis showed LA thrombus; had been on Xarelto at the time per chart review. At OSH just prior to this admission, patient had RVR and received dual tim blockade with dilt and metoprolol, stopped dilt 2/2 reduced EF and continued on metoprolol . - anticoagulation: Heparin gtt in preparation for upcoming procedures - rate control with metoprolol given recent Afib RVR #T2DM Home regimen: glargine 18u; Lispro 10 TID + SSI. A1c here 7.7 on 07/07/24. - Glargine at OSH 18u, Lispro 6u TID -> 7 units TID 07/09 -> 9 units TID 07/11 - POC glucose TIDAC #Anemia: Hgb 10.8 on arrival. Bl: 11-12. MCV elevated. B12 > 1000 at OSH, Folate wnl. CTM #Recurrent UTI #OAB Per family, has been treated multiple times recently for UTIs. Her symptoms are not urinary in nature, her symptoms typically are becoming delirious and belligerent. UA at outside hospital with 0-5 WBC, 3+ nitrate. Cx was performed which showed >100,000 colonies E coli. Given recurrence of events, would consider colonization versus recurrent UTI. - Did not treat given favoring colonization over UTI without specific symptoms, ongoing symptoms more likely attributed to bacteremia - Given ongoing concerns with family surrounding possible UTI, ordered culture 07/10, pending - Home Vibegron 75 --> change to Mirabegron for formulary #Hypothyroidism: Synthroid 75mcg, TSH 2.8 #Depression: Continue Lexapro 10, nortriptyline 10 #GERD: Pantoprazole 20 #Constipation: Senna-Docusate BID #JOSE: ordered CPAP, pt reportedly intermittently compliant at home #Hx of intellectual disability/developmental delay: Sister Dilia currently takes care of patient, other sister Peg assists. Both discuss pt medical decisions together. Patient is not consentable Code Status: Full Code Disposition: pending Best contact: Primary Emergency Contact: Dilia Moise Diet: NPO Diet VTE Prophylaxis: Heparin gtt PT: PT Recommendation/Plan: Jail Facility OT:OT Recommendation: Jail Facility Azeem Mai MD Internal Medicine Resident Physician, PGY-1 07/13/2024 8:41 AM Cosigned by Ynes Roman MD at 07/13/2024 11:47 PM CDT Associated attestation - Ynes Roman MD - 07/13/2024 11:47 PM CDT Attending Documentation I have seen and examined the patient on 07/13/24. I agree with the findings and plan of care as documented in the resident's/fellow's note. Supplementary Attestation Today, I am treating the patient for endocarditis, tricuspid valve vegetation and ICD lead infection as described in the note. Discussed management of ICD explantation with the patient. Patient has limited understanding of hermedical condition and this impacts her management. Ynes Roman MD 07/13/2024 11:46 PM * Becca Wilcox MD - 07/12/2024 4:28 PM CDT Medicine Daily Progress Note Patient: Lei Rodriguez : 1960 (63 y.o.) Date of Admission: 07/07/2024 Date of Service: 07/12/24 SUBJECTIVE Interval Events: - This morning patient tearful, says she hates being in the hospital. She denies feeling any pain, denies any other complaints. Say she hates the food - She was discussed in multidisciplinary meeting this morning and deemed not a candidate for angiovac or tricuspid valve surgery. -VSS and WNL overnight, I/O not well documented, Cr 0.92 Plan for Today: - MRI spine ordered, CXR 2 view ordered, EP will weigh in on risk with ICD - CTS planning for explant of ICD tomorrow, EP is aware. - CTA coronary ordered given unclear etiology for HFrEF - Family updated on plan of care OBJECTIVE Vitals Most Recent: Vitals: 07/12/24 1539 BP: 120/61 Pulse: 60 Resp: 18 Temp: 36.6 ??C (97.9 ??F) SpO2: 98% 24 Hour Min/Max: Temp Min: 36.5 ??C (97.7 ??F) Max: 37.3 ??C (99.1 ??F) Pulse Min: 60 Max: 90 BP Min: 102/47 Max: 120/61 Resp Min: 17 Max: 18 SpO2 Min: 94 % Max: 98 % Intake/Output Intake/Output Summary (Last 24 hours) at 07/12/2024 1628 Last data filed at 07/12/2024 0536 Gross per 24 hour Intake 1744.22 ml Output 0 ml Net 1744.22 ml Current Medications Scheduled Meds: Scheduled Medications Medication Dose Route Frequency ceFAZolin (ANCEF) 2,000 mg/20 mL in sterile water (premix) 2,000 mg 2,000 mg intravenous Q8H [facility] escitalopram (LEXAPRO) tablet 10 mg 10 mg oral Daily furosemide (LASIX) tablet 40 mg 40 mg oral Daily insulin glargine (LANTUS, SEMGLEE) 100 unit/mL injection 18 Units 18 Units subcutaneous QAM insulin lispro (HumaLOG, ADMELOG) 100 unit/mL injection 0-10 Units 0-10 Units subcutaneous TID withmeals insulin lispro (HumaLOG, ADMELOG) 100 unit/mL injection 0-5 Units 0-5 Units subcutaneous Nightly insulin lispro (HumaLOG, ADMELOG) 100 unit/mL injection 9 Units 9 Units subcutaneous TID with meals levothyroxine (SYNTHROID) tablet 75 mcg 75 mcg oral Daily - 0600 magnesium oxide (MAG-OX) tablet 400 mg 400 mg oral Daily metoprolol XL (TOPROL-XL) extended release tablet 50 mg 50 mg oral Daily mirabegron ER (MYRBETRIQ) extended release tablet 25 mg 25 mg oral Daily nortriptyline (PAMELOR) capsule 10 mg 10 mg oral Daily pantoprazole DR (PROTONIX) extended release tablet 20 mg 20 mg oral Daily sacubitriL-valsartan (ENTRESTO) 24-26 mg tablet 1 tablet 1 tablet oral BID senna-docusate (PERICOLACE) 8.6-50 mg per tablet 1 tablet 1 tablet oral BID sodium chloride 0.9% flush 0.5-20 mL 0.5-20 mL intra-catheter Q8H [facility] spironolactone (ALDACTONE) split tablet 12.5 mg 12.5 mg oral Daily Continuous Meds: Current Facility-Administered Medications Medication Dose Route Frequency Last Admin heparin 0-33 Units/kg/hr intravenous Titrated 14 Units/kg/hr at 07/12/24 1618 PRN Meds: PRN Medications Medication Dose Route Frequency Last Admin acetaminophen (TYLENOL) tablet 650 mg 650 mg oral Q4H PRN 650 mg at 07/11/24 0022 Carrier Fluids for Secondary Infusion - 0.9% Sodium Chloride 30 mL intravenous PRN cyclobenzaprine (FLEXERIL) tablet 5 mg 5 mg oral TID PRN 5 mg at 07/12/24 1023 dextrose gel in packet 15 g 15 g oral Q15 Min PRN Or dextrose (D10W) 10% bolus 250 mL 250 mL intravenous Q15 Min PRN glucagon injection 1 mg 1 mg intramuscular Q30 Min PRN heparin 1,000 unit/mL injection 4,500 Units 40 Units/kg intravenous Q6H PRN 4,500 Units at Or heparin 1,000 unit/mL injection 9,100 Units 80 Units/kg intravenous Q6H PRN ondansetron ODT (ZOFRAN-ODT) disintegrating tablet 4 mg 4 mg oral Q6H PRN Or ondansetron (ZOFRAN) injection 4 mg 4 mg intravenous Q6H PRN polyethylene glycol (MIRALAX) packet 17 g 17 g oral Daily PRN ramelteon (ROZEREM) tablet 8 mg 8 mg oral Nightly PRN 8 mg at 07/11/242107 sodium chloride 0.9% flush 0.5-20 mL 0.5-20 mL intra-catheter PRN Physical Exam Gen: No apparent distress. Resting comfortably. Cooperative. HEENT: No conjunctival pallor or injection, no icterus. No nasal discharge. Moist mucus membranes. Cardiac: Irregularly irregular rate and rhythm, normal S1/S2. No murmurs. No JVD. No S3/S4. No LE edema. Peripheral pulses 2+ bilaterally. Pulm: Clear to auscultation bilaterally. No wheezing or rhonchi. Abdomen: Soft. Bowel sounds present. No tenderness or distension. Extremity: Warm. No edema. No clubbing or cyanosis. Neuro: Alert and orientedx3. Sensation intact throughout to light touch. Tender to palpation in lower spine midline and on right side (unchanged). Unable to respond to complex questions, forgets information between conversations. Skin: No lesions, erythema, or skin changes. Psych: Mood appropriate. Appropriate insight. Laboratory Results Recent Results (from the past 24 hour(s)) POCT glucose Collection Time: 07/11/24 5:14 PM Result Value Ref Range Glucose, POC 209 (H) 70 - 199 mg/dL POCT glucose Collection Time: 07/11/24 8:31 PM Result Value Ref Range Glucose, POC 181 70 - 199 mg/dL CBC without differential Collection Time: 07/11/24 9:19 PM Result Value Ref Range WBC 4.7 3.8 - 9.9 K/cumm Hgb 10.3 (L) 11.9 - 15.5 g/dL Hct 33.1 (L) 35.6 - 45.5 % Plt 255 150 - 400 K/cumm MPV 9.5 9.1 - 12.3 fL RBC 3.20 (L) 3.90 - 5.20 M/cumm MCV 103.4 (H) 81.3 - 96.4 fL MCH 32.2 27.1 - 33.3 pg MCHC 31.1 (L) 32.3 - 35.7 g/dL RDW CV 14.3 11.1 - 14.9 % RDW SD 54.3 (H) 35.7 - 48.1 fL NRBC abs 0.00 0.00 - 0.01 K/cumm Comprehensive metabolic panel Collection Time: 07/11/24 9:19 PM Result Value Ref Range Sodium 136 135 - 145 mmol/L Potassium, pl 3.9 3.3 - 4.9 mmol/L Chloride 100 97 - 110 mmol/L CO2 27 22 - 32 mmol/L Anion gap 9 2 - 15 mmol/L BUN 15 6 - 25 mg/dL Creatinine 0.92 0.60 - 1.10 mg/dL Glucose 124 70 - 199 mg/dL Calcium 9.1 8.5 - 10.3 mg/dL Bilirubin, total 0.3 0.1 - 1.2 mg/dL Protein, pl 7.2 6.5 - 8.5 g/dL Albumin 3.2 (L) 3.5 - 5.0 g/dL Alk phos 155 (H) 40 - 130 Units/L ALT 10 7 - 45 Units/L AST 24 10 - 45 Units/L aPTT Collection Time: 07/11/24 9:19 PM Result Value Ref Range aPTT 51 (H) 28 - 38 sec eGFR Collection Time: 07/11/24 9:19 PM Result Value Ref Range eGFR 70 >=60 mL/min/1.73 m2 Magnesium Collection Time: 07/11/24 9:19 PM Result Value Ref Range Magnesium 1.8 1.4 - 2.5 mg/dL aPTT Collection Time: 07/12/24 4:17 AM Result Value Ref Range aPTT 133 (H) 28 - 38 sec POCT glucose Collection Time: 07/12/24 8:13 AM Result Value Ref Range Glucose, POC 133 70 - 199 mg/dL Imaging Results Transesophageal Echo (GT) W Doppler/CF Patient name: Lei Rodriguez Date of test: 07/10/2024 Date of : 1960 (F) Hospital #: 0 Location: [facility] Cardiac Diagnostic Lab Interpreted by: Da Ayala MD Statistics Teacher: Emily King MD RN: Reason for Test: [...] 2=Hypo 3=Akinetic 4=Dyskin. 5=Aneurysm 0=Not visualized) Short Okarche-Gastric:=2 S=2 I=2 P=2 L=2 A=2 Long Okarche-Gastric:BP=2 BA=2 MP=2 MA=2 AP=2 AA=2 Chamber Dimensions: RA: increased LA: increased, 5 cm RV: Normal LV: mildly dilated LV function: Moderate global left ventricular dysfunction. RV function: Normal Pericardium: No pericardial effusion seen Diastolic function: not assessed Atrial Septum: Normal Wall Thickness: RV: Normal LV: Normal Sedation/Tolerance: Sedation: GT performed with monitored anesthesia care Meds Admin: [...] no MS, mild TV regurgitation, normal PV. Emily King performed the GT probe placement with Da Ayala MD present. [...] 07/10/2024 - 12:46:57 by Da Ayala MD Abrasive Sawyer: Emily King By signing this report, the attending arboreal scientist certifies that he or she has personally supervised and interpreted the echocardiogram and has reviewed and or edited and agrees with the written comments contained within the report. ASSESSMENT & PLAN Lei Rodriguez is a 63 y.o. female with a PMHx significant for MSSA bacteremia (05/2024), A-fib,HFrEF (EF 30%), T2DM, GERD, Intellectual disability, OAB, JOSE, and hypothyroidism who presented to OSH 06/28 for back pain. Found to have + blood cx for staph aureus and CT c/f OM. Tx to [facility] for further evaluation and treatment. 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 #MSSA TV Endocarditis, recurrent, secondary to infected ICD lead #History of Vfib/VT Recent admit 05/2024 for MSSA bacteremia. Per outside hospital TTE and GT no vegetations on valves or on ICD wires. Treated with 4 weeks of IV Ancef ending 06/21. Review of ID notes from OSH show blood cultures remained clear on 06/13. 07/01 blood cx were drawn x2, 10/11 then second set 11/11 MSSA. Vanc + Ancef started, Vanc d/c 07/03. 07/02 cx NGTD. Concern for lack of source control given recurrence, with potential sources including ICD, heart valves, osteomyelitis of spine given patient's back pain.ICD most likely given TTE findings, cannot rule out valves or spine presently. If ICD involved, patient will need source control. Currently no signs of sepsis. - blood cultures redrawn on admission 07/08, NGTD - TTE 07/07/24 performed to re-evaluate leads demonstrating echodensity on V lead of ICD. GT 07/10/24 demonstrating vegetation on TV, no vegetation on ICD, thrombus in LA - continue Ancef 2g Q8 - ICD: placed 2017 per sister, recurrent events of VF/VT requiring shocks, most recently 5 shocks on 06/10/24. Interrogated 07/07 (full results in folder), not pacer dependent - Cardiac surgery, EP, ID consulted, appreciate ongoing recommendations - HIV NR - MRI spine pending - Per ID, will need 14 days of antibiotics after ICD removal before re- implantation, at least 6 weeks total therapy, send cultures if any valve surgery is done - CTS planning for surgery 07/13/24, EP aware, will need to diligently monitor for VT on telemetry (continuous telemetry order placed) #HFrEF - compensated EF of 30% on 05/2024 echocardiogram, mild-mod MR, RVSP 42 mild-mod TR. On chart review, patient hadHFrEF dating back to at least 2016, though etiology of this not clearly established. Current GDMT includes metoprolol, Entresto 24-26 BID, furosemide 40 daily - Not on Farxiga due to recurrent UTI - Initiated spironolactone 12.5 mg 07/09 - Consider up-titrating Entresto if BP allows during admission - Obtain CTA coronary to evaluate for ischemic etiology of HFrEF #Persistent atrial fibrillation #MAULIK Thrombus In AFib on admission. Previously on Tikosyn, however, taken off of Tikosyn after admission for MSSA, and was continued on Xarelto for AC and Coreg for rate control in May. GT in May 2024 performed to eval for endocarditis showed LA thrombus; had been on Xarelto at the time per chart review. At OSH just prior to this admission, patient had RVR and received dual tim blockade with dilt and metoprolol, stopped dilt 2/2 reduced EF and continued on metoprolol . - anticoagulation: Heparin gtt in preparation for upcoming procedures - rate control with metoprolol given recent Afib RVR #T2DM Home regimen: glargine 18u; Lispro 10 TID + SSI. A1c here 7.7 on 07/07/24. - Glargine at OSH 18u, Lispro 6u TID -> 7 units TID 07/09 -> 9 units TID 07/11 - POC glucose TIDAC #Anemia: Hgb 10.8 on arrival. Bl: 11-12. MCV elevated. B12 > 1000 at OSH, Folate wnl. CTM #Recurrent UTI #OAB Per family, has been treated multiple times recently for UTIs. Her symptoms are not urinary in nature, her symptoms typically are becoming delirious and belligerent. UA at outside hospital with 0-5 WBC, 3+ nitrate. Cx was performed which showed >100,000 colonies E coli. Given recurrence of events, would consider colonization versus recurrent UTI. - Did not treat given favoring colonization over UTI without specific symptoms, ongoing symptoms more likely attributed to bacteremia - Given ongoing concerns with family surrounding possible UTI, ordered culture 07/10, pending - Home Vibegron 75 --> change to Mirabegron for formulary #Hypothyroidism: Synthroid 75mcg, TSH 2.8 #Depression: Continue Lexapro 10, nortriptyline 10 #GERD: Pantoprazole 20 #Constipation: Senna-Docusate BID #JOSE: ordered CPAP, pt reportedly intermittently compliant at home #Hx of intellectual disability/developmental delay: Sister Dilia currently takes care of patient, other sister Peg assists. Both discuss pt medical decisions together. Patient is not consentable Code Status: Full Code Disposition: pending Best contact: Primary Emergency Contact: Dilia Moise Diet: Adult Diet Restricted; 2 GM Sodium, Low Fat, Low Chol NPO Diet VTE Prophylaxis: Heparin gtt PT: PT Recommendation/Plan: Jail Facility OT:OT Recommendation: Jail Facility Becca Wilcox MD Internal Medicine Resident Physician, PGY-2 07/12/2024 4:51 PM Cosigned by Ynes Roman MD at 07/13/2024 11:46 PM CDT Associated attestation - Ynes Roman MD - 07/13/2024 11:46 PM CDT Attending Documentation I have seen and examined the patient on 07/12/2024. I agree with the findings and plan of care as documented in the resident's/fellow's note. Supplementary Attestation Today, I am treating the patient for endocarditis, tricuspid valve vegetation and ICD lead infection as described in the note. Discussed management of ICD explantation with the patient. Ynes Roman MD 07/12/2024 10:35 PM * Jade Machado PTA - 07/12/2024 9:54 AM CDT Physical Therapy 07/12/24 0954 PT Last Visit Subjective Comment I don't want to do that. I want a different breakfast. I don't want cereal. PT Missed Visit Reason Patient declined Recommendation/Plan PT - Next Appointment 07/16/24 * Ha Griffiths MD - 07/12/2024 8:14 AM CDT Vascular Surgery Consult Daily Progress Patient Name/MRN: Lei Rodriguez [id number] Attending: Elvira Cooper MD Today's Date: 07/12/2024 Room/Bed: [id number] Admit Date: 07/07/2024 Code Status: Full Code Events Over Last 24 Hours: NAEO. Awaiting final plan from CTS Current Facility-Administered Medications Medication Dose Route Frequency Provider Last Rate Last Admin acetaminophen (TYLENOL) tablet 650 mg 650 mg oral Q4H PRN Marylou Saravia MD 650 mg at 07/11/24 0022 Carrier Fluids for Secondary Infusion - 0.9% Sodium Chloride 30 mL intravenous PRN Marylou Saravia MD ceFAZolin (ANCEF) 2,000 mg/20 mL in sterile water (premix) 2,000 mg 2,000 mg intravenous Q8H [facility] Marylou Saravia MD 2,000 mg at 07/12/24 0536 cyclobenzaprine (FLEXERIL) tablet 5 mg 5 mg oral TID PRN Marylou Saravia MD 5 mg at 07/11/242106 dextrose gel in packet 15 g 15 g oral Q15 Min PRN Marylou Saravia MD Or dextrose (D10W) 10% bolus 250 mL 250 mL intravenous Q15 Min PRN Marylou Saravia MD escitalopram (LEXAPRO) tablet 10 mg 10 mg oral Daily Marylou Saravia MD 10 mg at 07/11/24 1040 furosemide (LASIX) tablet 40 mg 40 mg oral Daily Marylou Saravia MD 40 mg at 07/11/24 1041 glucagon injection 1 mg 1 mg intramuscular Q30 Min PRN Marylou Saravia MD heparin 1,000 unit/mL injection 4,500 Units 40 Units/kg intravenous Q6H PRN Marylou Saravia MD 4,500 Units at 07/11/24 2230 Or heparin 1,000 unit/mL injection 9,100 Units 80 Units/kg intravenous Q6H PRN Marylou Saravia MD heparin in 0.45% sodium chloride 25,000 units/250 mL (100 units/mL) infusion (premix) 0-33 Units/kg/hr intravenous Titrated Marylou Saravia MD 15.9 mL/hr at 07/12/24 0716 14 Units/kg/hr at1 0716 insulin glargine (LANTUS, SEMGLEE) 100 unit/mL injection 18 Units 18 Units subcutaneous QAM Marylou Saravia MD 18 Units at 07/11/24 1041 insulin lispro (HumaLOG, ADMELOG) 100 unit/mL injection 0-10 Units 0-10 Units subcutaneous TID withmeals Valentina Brown MD 4 Units at 07/11/24 1746 insulin lispro (HumaLOG, ADMELOG) 100 unit/mL injection 0-5 Units 0-5 Units subcutaneous Nightly Valentina Brown MD 1 Units at 07/11/242107 insulin lispro (HumaLOG, ADMELOG) 100 unit/mL injection 9 Units 9 Units subcutaneous TID with mealsSilbersValentina hui MD 9 Units at 07/11/24 1745 levothyroxine (SYNTHROID) tablet 75 mcg 75 mcg oral Daily - 0600 Marylou Saravia MD 75 mcg at 07/12/24 0536 magnesium oxide (MAG-OX) tablet 400 mg 400 mg oral Daily Marylou Saravia MD 400 mg at 07/11/24 1041 metoprolol XL (TOPROL-XL) extended release tablet 50 mg 50 mg oral Daily Marylou Saravia MD 50 mg at 07/11/24 1041 mirabegron ER (MYRBETRIQ) extended release tablet 25 mg 25 mg oral Daily Marylou Saravia MD 25 mg at 07/11/24 1041 nortriptyline (PAMELOR) capsule 10 mg 10 mg oral Daily Marylou Saravia MD 10 mg at 07/11/24 1041 ondansetron ODT (ZOFRAN-ODT) disintegrating tablet 4 mg 4 mg oral Q6H PRN Marylou Saravia MD Or ondansetron (ZOFRAN) injection 4 mg 4 mg intravenous Q6H PRN Marylou Saravia MD pantoprazole DR (PROTONIX) extended release tablet 20 mg 20 mg oral Daily Marylou Saravia MD 20 mg at 07/11/24 104 polyethylene glycol (MIRALAX) packet 17 g 17 g oral Daily PRN Marylou Saravia MD ramelteon (ROZEREM) tablet 8 mg 8 mg oral Nightly PRN Marylou Saravia MD 8 mg at 07/11/242107 sacubitriL-valsartan (ENTRESTO) 24-26 mg tablet 1 tablet 1 tablet oral BID Marylou Saravia MD 1 tablet at 07/11/242106 senna-docusate (PERICOLACE) 8.6-50 mg per tablet 1 tablet 1 tablet oral BID Marylou Saravia MD 1 tablet at 07/11/242107 sodium chloride 0.9% flush 0.5-20 mL 0.5-20 mL intra-catheter Q8H [facility] [facility] Marylou Saravia MD10 mL at 07/12/24 0536 sodium chloride 0.9% flush 0.5-20 mL 0.5-20 mL intra-catheter PRN Marylou Saravia MD spironolactone (ALDACTONE) split tablet 12.5 mg 12.5 mg oral Daily Valentina Brown MD 12.5 mg at 07/11/24 1041 Objective Vitals: 24hr Min/Max: Temp Min: 36.7 ??C (98.1 ??F) Max: 37.3 ??C (99.1 ??F) Pulse Min: 79 Max: 91 BP Min: 102/47 Max: 117/58 Resp Min: 17 Max: 18 SpO2 Min: 94 % Max: 100 % Most Recent : Vitals: 07/12/24 0405 BP: 102/47 Pulse: 79 Resp: 18 Temp: 37.3 ??C (99.1 ??F) SpO2: 94% I/O last 2 completed shifts: In: 1744.2 [P.O.:220; I.V.:1524.2] Out: 425 [Urine:425] No intake/output data recorded. Physical exam: Constitutional: Appears comfortable. No acute distress. Neuro: Alert and oriented x3. No gross focal deficits. CVS: irregularly irregular. ICD present and left chest, nontender to palpation Resp: Non-labored breathing, symmetric chest wall movements Abdomen: Soft, non-distended, non-tender Extremities: No rashes, no significant edema Neuromuscular: Motor strength grossly normal all 4 extremities Pulses: Right Radial: palpable Right Femoral: palpable Left Radial: palpable Left Femoral: palpable Labs: Recent Labs Lab Units 07/12/24 0813 07/11/24 2119 07/11/24 2031 07/11/24 0727 07/10/24 2324 07/10/24 0745 07/09/24 2348 SODIUM mmol/L -- 136 -- -- 134* -- 136 POTASSIUM PLASMA mmol/L -- 3.9 -- -- 4.7 -- 3.5 CHLORIDE mmol/L -- 100 -- -- 99 -- 99 CO2 mmol/L -- 27 -- -- 26 -- 33* ANIONGAP mmol/L -- 9 -- -- 9 -- 4 GLUCOSE mg/dL -- 124 -- -- 351* -- 156 POC GLUCOSE MONITOR mg/dL 133 -- 181 < > -- < > -- BUN SERUM mg/dL -- 15 -- -- 19 -- 16 CREATININE mg/dL -- 0.92 -- -- 0.94 -- 1.04 CALCIUM mg/dL -- 9.1 -- -- 9.4 -- 9.1 ALBUMIN g/dL -- 3.2* -- -- 3.6 -- 3.3* ALK PHOS Units/L -- 155* -- -- 176* -- 162* ALT Units/L -- 10 -- -- 8 -- 6* AST Units/L -- 24 -- -- 28 -- 26 BILIRUBIN TOTAL mg/dL -- 0.3 -- -- 0.4 -- 0.4 < > = values in this interval not displayed. Recent Labs Lab Units 07/11/24211807/10/[id number]/09/[id number]/07/[id number]/07/24133 WBC K/cumm 4.7 5.9 7.6 < > 7.7 RBC M/cumm 3.20* 3.53* 3.30* < > 3.34* HEMOGLOBIN g/dL 10.3* 11.3* 10.8* < > 10.8* HEMATOCRIT % 33.1* 35.8 33.4* < > 33.2* MCV fL 103.4* 101.4* 101.2* < > 99.4* MCHC g/dL 31.1* 31.6* 32.3 < > 32.5 MCH pg 32.2 32.0 32.7 < > 32.3 MPV fL 9.5 9.5 9.8 < > 10.0 MONOS PCT % -- -- -- -- 5.8 BASOS % -- -- -- -- 0.8 NEUTROS ABS K/cumm -- -- -- -- 5.5 < > = values in this interval not displayed. Recent Labs Lab Units 07/07/24 0134 INR 1.47* Imaging: XR Chest PA Lateral 2 Views Result Date: 07/11/2024 The current study is compared with the [...] stable from prior examination. Pulmonary nodules better characterizedon recent CT. Dictated by: Meena Pagan MD The radiology attending physician has personally reviewed this study, and had reviewed and/or edited this written report and agrees with it. Electronically signed by: Jonathan Garcia M.D. Assessment/Plan: 63-year-old female with recurrent MSSA bacteremia, concern for spinal osteomyelitis and bacterial seeding of her ICD, with plans for ICD explantation this admission. Vascular surgery is consulted forbacterial vegetations on her tricuspid valve, with consideration for AngioVac - Multidisciplinary discussion between Vascular and CTS, patient is not a candidate for AngioVac therapy - Vascular surgery will sign off. Please call [phone] with vascular consult questions 02/05. Ha Griffiths MD Resident Physician Vascular Surgery Vascular Consult Vascular Inpatient Floor [facility] Cosigned by Luh Mccurdy MD PhD at 07/17/2024 8:37 AM CDT * Valentina Brown MD - 07/11/2024 1:59 PM CDT Medicine Daily Progress Note Patient: Lei Rodriguez : 1960 (63 y.o.) Date of Admission: 07/07/2024 Date of Service: 07/11/24 SUBJECTIVE Interval Events: - Yesterday, patient very upset after GT about food choices, asking to go home. Distraught throwing items in rooms. Became further upset after hearing she may require a sitter if behavior persisted and refused medications. Eventually verbally redirected, willing to take medications in afternoon after being reassured if she behaved better she would not need sitter - Discussed this AM symptoms. She endorsed back pain and concern for why it isn't getting better. Explained we want more imaging of back - Yesterday patient stated she didn't family contacted with updates and stated anger towards sisters. Inquired specifically about this today and she stated they're worry warts they just worry too much but they're nice and she denied any verbal or physical abuse, threats, or concerns for safety - ID updated recommendations: agree with ICD removal, continue Abx, likely 14 days abx removal following device removal and 6+ weeks abx after Plan for Today: - MRI ordered, CXR 2 view ordered, EP will weigh in on risk with ICD - CTS final recommendations pending regarding ICD and valve - Vascular surgery consulted for consideration of angio vac if TV is determined non-operable by CTS OBJECTIVE Vitals Most Recent: Vitals: 07/11/24 1041 BP: Pulse: 91 Resp: Temp: SpO2: 24 Hour Min/Max: Temp Min: 36.4 ??C (97.5 ??F) Max: 36.7 ??C (98.1 ??F) Pulse Min: 86 Max: 105 BP Min: 90/50 Max: 130/79 Resp Min: 18 Max: 20 SpO2 Min: 93 % Max: 100 % Intake/Output Intake/Output Summary (Last 24 hours) at 07/11/2024 1359 Last data filed at 07/10/2024 2152 Gross per 24 hour Intake 460 ml Output -- Net 460 ml Current Medications Scheduled Meds: Scheduled Medications Medication Dose Route Frequency ceFAZolin (ANCEF) 2,000 mg/20 mL in sterile water (premix) 2,000 mg 2,000 mg intravenous Q8H [facility] escitalopram (LEXAPRO) tablet 10 mg 10 mg oral Daily furosemide (LASIX) tablet 40 mg 40 mg oral Daily insulin glargine (LANTUS, SEMGLEE) 100 unit/mL injection 18 Units 18 Units subcutaneous QAM insulin lispro (HumaLOG, ADMELOG) 100 unit/mL injection 0-10 Units 0-10 Units subcutaneous TID withmeals insulin lispro (HumaLOG, ADMELOG) 100 unit/mL injection 0-5 Units 0-5 Units subcutaneous Nightly insulin lispro (HumaLOG, ADMELOG) 100 unit/mL injection 9 Units 9 Units subcutaneous TID with meals levothyroxine (SYNTHROID) tablet 75 mcg 75 mcg oral Daily - 0600 magnesium oxide (MAG-OX) tablet 400 mg 400 mg oral Daily metoprolol XL (TOPROL-XL) extended release tablet 50 mg 50 mg oral Daily mirabegron ER (MYRBETRIQ) extended release tablet 25 mg 25 mg oral Daily nortriptyline (PAMELOR) capsule 10 mg 10 mg oral Daily pantoprazole DR (PROTONIX) extended release tablet 20 mg 20 mg oral Daily sacubitriL-valsartan (ENTRESTO) 24-26 mg tablet 1 tablet 1 tablet oral BID senna-docusate (PERICOLACE) 8.6-50 mg per tablet 1 tablet 1 tablet oral BID sodium chloride 0.9% flush 0.5-20 mL 0.5-20 mL intra-catheter Q8H [facility] spironolactone (ALDACTONE) split tablet 12.5 mg 12.5 mg oral Daily Continuous Meds: Current Facility-Administered Medications Medication Dose Route Frequency Last Admin heparin 0-33 Units/kg/hr intravenous Titrated 15 Units/kg/hr at 07/11/24 0521 sodium chloride 0.9% 30 mL/hr intravenous Continuous Rate Change at 07/10/24 1146 PRN Meds: PRN Medications Medication Dose Route Frequency Last Admin acetaminophen (TYLENOL) tablet 650 mg 650 mg oral Q4H PRN 650 mg at 07/11/24 0022 Carrier Fluids for Secondary Infusion - 0.9% Sodium Chloride 30 mL intravenous PRN cyclobenzaprine (FLEXERIL) tablet 5 mg 5 mg oral TID PRN 5 mg at 07/11/24 1041 dextrose gel in packet 15 g 15 g oral Q15 Min PRN Or dextrose (D10W) 10% bolus 250 mL 250 mL intravenous Q15 Min PRN glucagon injection 1 mg 1 mg intramuscular Q30 Min PRN heparin 1,000 unit/mL injection 4,500 Units 40 Units/kg intravenous Q6H PRN 4,500 Units at Or heparin 1,000 unit/mL injection 9,100 Units 80 Units/kg intravenous Q6H PRN ondansetron ODT (ZOFRAN-ODT) disintegrating tablet 4 mg 4 mg oral Q6H PRN Or ondansetron (ZOFRAN) injection 4 mg 4 mg intravenous Q6H PRN polyethylene glycol (MIRALAX) packet 17 g 17 g oral Daily PRN ramelteon (ROZEREM) tablet 8 mg 8 mg oral Nightly PRN 8 mg at 07/10/242156 sodium chloride 0.9% flush 0.5-20 mL 0.5-20 mL intra-catheter PRN Physical Exam Gen: No apparent distress. Resting comfortably. Cooperative. HEENT: No conjunctival pallor or injection, no icterus. No nasal discharge. Moist mucus membranes. Cardiac: Irregularly irregular rate and rhythm, normal S1/S2. No murmurs. No JVD. No S3/S4. No LE edema. Peripheral pulses 2+ bilaterally. Pulm: Clear to auscultation bilaterally. No wheezing or rhonchi. Abdomen: Soft. Bowel sounds present. No tenderness or distension. Extremity: Warm. No edema. No clubbing or cyanosis. Neuro: Alert and orientedx3. Sensation intact throughout to light touch. Tender to palpation in lower spine midline and on right side. Unable to respond to complex questions, forgets information between conversations. Skin: No lesions, erythema, or skin changes. Psych: Mood appropriate. Appropriate insight. Laboratory Results Recent Results (from the past 24 hour(s)) POCT glucose Collection Time: 07/10/24 2:15 PM Result Value Ref Range Glucose, POC 210 (H) 70 - 199 mg/dL Lipid panel Collection Time: 07/10/24 2:21 PM Result Value Ref Range Cholesterol 180 30 - 199 mg/dL Triglycerides See Comment <=149 mg/dL HDL 49 >=40 mg/dL LDL, calculated See Comment <=129 Non-HDL Cholesterol 131 mg/dL Chol/HDL ratio 4 POCT glucose Collection Time: 07/10/24 4:53 PM Result Value Ref Range Glucose, POC 290 (H) 70 - 199 mg/dL aPTT Collection Time: 07/10/24 4:59 PM Result Value Ref Range aPTT 92 (H) 28 - 38 sec CBC without differential Collection Time: 07/10/24 11:24 PM Result Value Ref Range WBC 5.9 3.8 - 9.9 K/cumm Hgb 11.3 (L) 11.9 - 15.5 g/dL Hct 35.8 35.6 - 45.5 % Plt 352 150 - 400 K/cumm MPV 9.5 9.1 - 12.3 fL RBC 3.53 (L) 3.90 - 5.20 M/cumm MCV 101.4 (H) 81.3 - 96.4 fL MCH 32.0 27.1 - 33.3 pg MCHC 31.6 (L) 32.3 - 35.7 g/dL RDW CV 14.6 11.1 - 14.9 % RDW SD 53.9 (H) 35.7 - 48.1 fL NRBC abs 0.00 0.00 - 0.01 K/cumm Comprehensive metabolic panel Collection Time: 07/10/24 11:24 PM Result Value Ref Range Sodium 134 (L) 135 - 145 mmol/L Potassium, pl 4.7 3.3 - 4.9 mmol/L Chloride 99 97 - 110 mmol/L CO2 26 22 - 32 mmol/L Anion gap 9 2 - 15 mmol/L BUN 19 6 - 25 mg/dL Creatinine 0.94 0.60 - 1.10 mg/dL Glucose 351 (H) 70 - 199 mg/dL Calcium 9.4 8.5 - 10.3 mg/dL Bilirubin, total 0.4 0.1 - 1.2 mg/dL Protein, pl 8.0 6.5 - 8.5 g/dL Albumin 3.6 3.5 - 5.0 g/dL Alk phos 176 (H) 40 - 130 Units/L ALT 8 7 - 45 Units/L AST 28 10 - 45 Units/L aPTT Collection Time: 07/10/24 11:24 PM Result Value Ref Range aPTT 84 (H) 28 - 38 sec eGFR Collection Time: 07/10/24 11:24 PM Result Value Ref Range eGFR 69 >=60 mL/min/1.73 m2 Magnesium Collection Time: 07/10/24 11:24 PM Result Value Ref Range Magnesium 1.9 1.4 - 2.5 mg/dL POCT glucose Collection Time: 07/11/24 7:27 AM Result Value Ref Range Glucose, POC 238 (H) 70 - 199 mg/dL POCT glucose Collection Time: 07/11/24 11:36 AM Result Value Ref Range Glucose, POC 275 (H) 70 - 199 mg/dL Imaging Results Transesophageal Echo (GT) W Doppler/CF Patient name: Lei Rodriguez Date of test: 07/10/2024 Date of : 1960 (F) Hospital #: 0 Location: [facility] Cardiac Diagnostic Lab Interpreted by: Da Ayala MD Statistics Teacher: Emily King MD RN: Reason for Test: [...] 2=Hypo 3=Akinetic 4=Dyskin. 5=Aneurysm 0=Not visualized) Short [place]karche-Gastric:=2 S=2 I=2 P=2 L=2 A=2 Long [place]kar[place]-Gastric:BP=2 BA=2 MP=2 MA=2 AP=2 AA=2 Chamber Dimensions: RA: increased LA: increased, 5 cm RV: Normal LV: mildly dilated LV function: Moderate global left ventricular dysfunction. RV function: Normal Pericardium: No pericardial effusion seen Diastolic function: not assessed Atrial Septum: Normal Wall Thickness: RV: Normal LV: Normal Sedation/Tolerance: Sedation: GT performed with monitored anesthesia care Meds Admin: [...] no MS, mild TV regurgitation, normal PV. Emily King performed the GT probe placement with Da Ayala MD present. [...] 07/10/2024 - 12:46:57 by Da Ayala MD Abrasive Sawyer: Emily King By signing this report, the attending arboreal scientist certifies that he or she has personally supervised and interpreted the echocardiogram and has reviewed and or edited and agrees with the written comments contained within the report. ASSESSMENT & PLAN Lei Rodriguez is a 63 y.o. female with a PMHx significant for MSSA bacteremia (05/2024), A-fib,HFrEF (EF 30%), T2DM, GERD, Intellectual disability, OAB, JOSE, and hypothyroidism who presented to OSH 06/28 for back pain. Found to have + blood cx for staph aureus and CT c/f OM. Tx to [facility] for further evaluation and treatment. #MSSA bacteremia, recurrent, secondary to infected ICD lead #Biotronik ICD echodensity #History of Vfib/VT Recent admit 05/2024 for MSSA bacteremia. Per outside hospital TTE and GT no vegetations on valves or on ICD wires. Treated with 4 weeks of IV Ancef ending 06/21. Review of ID notes from OSH show blood cultures remained clear on 06/13. 07/01 blood cx were drawn x2, 1/ then second set 2/2 MSSA. Vanc + Ancef started, Vanc d/c 07/03. 07/02 cx NGTD. Concern for lack of source control given recurrence, with potential sources including ICD, heart valves, osteomyelitis of spine given patient's back pain.ICD most likely given TTE findings, cannot rule out valves or spine presently. If ICD involved, patient will need source control. Currently no signs of sepsis. - blood cultures redrawn on admission 07/08, NGTD - TTE 07/07/24 performed to re-evaluate leads demonstrating echodensity on V lead of ICD. GT 07/10/24 demonstrating vegetation on TV, no vegetation on ICD, thrombus in LA - continue Ancef 2g Q8 - ICD: placed 2017 per sister, recurrent events of VF/VT requiring shocks, most recently 5 shocks on 06/10/24. Interrogated 07/07 (full results in folder), not pacer dependent - Cardiac surgery, EP, ID consulted, appreciate ongoing recommendations - HIV NR 07/11 updates: - MRI spine pending - Per ID, will need 14 days of antibiotics after ICD removal before re- implantation, at least 6 weeks total therapy, send cultures if any valve surgery is done - CTS recommendations pending #HFrEF EF of 30% on 05/2024 echocardiogram, mild-mod MR, RVSP 42 mild-mod TR. On chart review, patient hadHFrEF dating back to at least 2016, though etiology of this not clearly established. Current GDMT includes metoprolol, Entresto 24-26 BID, furosemide 40 daily - Not on Farxiga due to recurrent UTI - Initiated spironolactone 12.5 mg 07/09 - Consider up-titrating Entresto if BP allows during admission #Persistent atrial fibrillation #MAULIK Thrombus In AFib on admission. Previously on Tikosyn, however, taken off of Tikosyn after admission for MSSA, and was continued on Xarelto for AC and Coreg for rate control in May. GT in May 2024 performed to eval for endocarditis showed LA thrombus; had been on Xarelto at the time per chart review. At OSH just prior to this admission, patient had RVR and received dual tim blockade with dilt and metoprolol, stopped dilt 2/2 reduced EF and continued on metoprolol . - anticoagulation: Heparin gtt in preparation for upcoming procedures - rate control with metoprolol given recent Afib RVR #T2DM Home regimen: glargine 18u; Lispro 10 TID + SSI. A1c here 7.7 on 07/07/24. - Glargine at OSH 18u, Lispro 6u TID -> 7 units TID 07/09 -> 9 units TID 07/11 - POC glucose TIDAC #Anemia: Hgb 10.8 on arrival. Bl: 11-12. MCV elevated. B12 > 1000 at OSH, Folate wnl. CTM #Recurrent UTI #OAB Per family, has been treated multiple times recently for UTIs. Her symptoms are not urinary in nature, her symptoms typically are becoming delirious and belligerent. UA at outside hospital with 0-5 WBC, 3+ nitrate. Cx was performed which showed >100,000 colonies E coli. Given recurrence of events, would consider colonization versus recurrent UTI. - Did not treat given favoring colonization over UTI without specific symptoms, ongoing symptoms more likely attributed to bacteremia - Given ongoing concerns with family surrounding possible UTI, ordered culture 07/10, pending - Home Vibegron 75 --> change to Mirabegron for formulary #Hypothyroidism: Synthroid 75mcg, TSH 2.8 #Depression: Continue Lexapro 10, nortriptyline 10 #GERD: Pantoprazole 20 #Constipation: Senna-Docusate BID #JOSE: ordered CPAP, pt reportedly intermittently compliant at home #Hx of intellectual disability/developmental delay: Sister Dilia currently takes care of patient, other sister Peg assists. Both discuss pt medical decisions together. Patient is not consentable Code Status: Full Code Disposition: pending Best contact: Primary Emergency Contact: Kilo Moiseee Diet: Adult Diet Restricted; 2 GM Sodium, Low Fat, Low Chol VTE Prophylaxis: Heparin gtt PT: PT Recommendation/Plan: Jail Facility OT:OT Recommendation: Jail Facility Valentina Brown MD PGY-1 Internal Medicine Cosigned by Ynes Roman MD at 07/12/2024 2:31 AM CDT Associated attestation - Ynes Roman MD - 07/12/2024 2:31 AM CDT Attending Documentation I have seen and examined the patient on 07/11/2024. I agree with the findings and plan of care as documented in the resident's/fellow's note. Supplementary Attestation Today, I am treating the patient for endocarditis as described in the note. Most recent creatinine was 0.94 which was used to continue or change medication dosing The patient's diagnosis is significantly impacted by the following social determinants of health: poor health literacy. Ynes Roman MD 07/12/2024 2:29 AM * Stephanie Botello NP - 07/11/2024 8:30 AM CDT Brief CTS Note GT reviewed: Mildly dilated LV with moderate global hypokinesis. [...] effusion. Mild atherosclerosis of the descending aorta. Plan: will work towards likely ICD extraction. 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 Her BCX are clearing on abx, the veg is moderate size and no significant valve dysfunction. Additionally, patient's sisters (POA) would be strongly against open surgery for Ms. Rodriguez. 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 CTS will continue to follow. Date of ICD extraction to be determined. Likely next week. Cosigned by Robin Watkins MD at 07/13/2024 9:10 PM CDT Associated attestation - Robin Watkins MD - 07/13/2024 9:10 PM CDT Patient seen and examined. ICD lead extraction to be scheduled Mateusz 10/[address] Baig and myself, as available. The patient's sister Dilia provided phone consent and the risks, benefits, and alternatives of the procedure were discussed with both her and the patient and they elected to proceed. * Cathy Thorpe, PT - 07/10/2024 12:01 PM CDT 07/10/24 0820 PT Last Visit PT Missed Visit Reason Procedure/testing/appointment (Leaving floor for IR) * Valentina Brown MD - 07/10/2024 9:13 AM CDT Medicine Daily Progress Note Patient: Lei Rodriguez : 1960 (63 y.o.) Date of Admission: 07/07/2024 Date of Service: 07/10/24 SUBJECTIVE Interval Events: - No acute overnight events - No new complaints, endorses back pain Plan for Today: - GT today, demonstrated vegetation on TV, not seen on ICD lead - MRI pending - Sisters voiced concern for untreated UTI given patients change in mental status. Obtained susceptibilities from OSH, indeterminate for cefazolin susceptibility. Will order repeat culture OBJECTIVE Vitals Most Recent: Vitals: 07/10/24 0740 BP: 100/60 Pulse: 94 Resp: 17 Temp: 36.4 ??C (97.5 ??F) SpO2: 95% 24 Hour Min/Max: Temp Min: 36.3 ??C (97.4 ??F) Max: 36.9 ??C (98.4 ??F) Pulse Min: 83 Max: 96 BP Min: 100/60 Max: 134/69 Resp Min: 17 Max: 20 SpO2 Min: 94 % Max: 98 % Intake/Output Intake/Output Summary (Last 24 hours) at 07/10/2024 0913 Last data filed at 07/09/2024 1745 Gross per 24 hour Intake 320 ml Output 300 ml Net 20 ml Current Medications Scheduled Meds: Scheduled Medications Medication Dose Route Frequency ceFAZolin (ANCEF) 2,000 mg/20 mL in sterile water (premix) 2,000 mg 2,000 mg intravenous Q8H [facility] escitalopram (LEXAPRO) tablet 10 mg 10 mg oral Daily furosemide (LASIX) tablet 40 mg 40 mg oral Daily insulin glargine (LANTUS, SEMGLEE) 100 unit/mL injection 18 Units 18 Units subcutaneous QAM insulin lispro (HumaLOG, ADMELOG) 100 unit/mL injection 0-4 Units 0-4 Units subcutaneous Nightly insulin lispro (HumaLOG, ADMELOG) 100 unit/mL injection 0-5 Units 0-5 Units subcutaneous TID with meals insulin lispro (HumaLOG, ADMELOG) 100 unit/mL injection 7 Units 7 Units subcutaneous TID with meals levothyroxine (SYNTHROID) tablet 75 mcg 75 mcg oral Daily - 0600 magnesium oxide (MAG-OX) tablet 400 mg 400 mg oral Daily metoprolol XL (TOPROL-XL) extended release tablet 50 mg 50 mg oral Daily mirabegron ER (MYRBETRIQ) extended release tablet 25 mg 25 mg oral Daily nortriptyline (PAMELOR) capsule 10 mg 10 mg oral Daily pantoprazole DR (PROTONIX) extended release tablet 20 mg 20 mg oral Daily potassium chloride ER (KLOR-CON) extended release tablet 30 mEq 30 mEq oral Q4H sacubitriL-valsartan (ENTRESTO) 24-26 mg tablet 1 tablet 1 tablet oral BID senna-docusate (PERICOLACE) 8.6-50 mg per tablet 1 tablet 1 tablet oral BID sodium chloride 0.9% flush 0.5-20 mL 0.5-20 mL intra-catheter Q8H [facility] spironolactone (ALDACTONE) split tablet 12.5 mg 12.5 mg oral Daily Continuous Meds: Current Facility-Administered Medications Medication Dose Route Frequency Last Admin heparin 0-33 Units/kg/hr intravenous Titrated 15 Units/kg/hr at 07/10/24 0831 PRN Meds: PRN Medications Medication Dose Route Frequency Last Admin acetaminophen (TYLENOL) tablet 650 mg 650 mg oral Q4H PRN 650 mg at 07/08/24 1245 Carrier Fluids for Secondary Infusion - 0.9% Sodium Chloride 30 mL intravenous PRN cyclobenzaprine (FLEXERIL) tablet 5 mg 5 mg oral TID PRN 5 mg at 07/08/24 1245 dextrose gel in packet 15 g 15 g oral Q15 Min PRN Or dextrose (D10W) 10% bolus 250 mL 250 mL intravenous Q15 Min PRN glucagon injection 1 mg 1 mg intramuscular Q30 Min PRN heparin 1,000 unit/mL injection 4,500 Units 40 Units/kg intravenous Q6H PRN 4,500 Units at 364250 Or heparin 1,000 unit/mL injection 9,100 Units 80 Units/kg intravenous Q6H PRN ondansetron ODT (ZOFRAN-ODT) disintegrating tablet 4 mg 4 mg oral Q6H PRN Or ondansetron (ZOFRAN) injection 4 mg 4 mg intravenous Q6H PRN polyethylene glycol (MIRALAX) packet 17 g 17 g oral Daily PRN ramelteon (ROZEREM) tablet 8 mg 8 mg oral Nightly PRN 8 mg at 07/10/24 0146 sodium chloride 0.9% flush 0.5-20 mL 0.5-20 mL intra-catheter PRN Physical Exam Gen: No apparent distress. Resting comfortably. Cooperative. HEENT: No conjunctival pallor or injection, no icterus. No nasal discharge. Moist mucus membranes. Cardiac: Irregularly irregular rate and rhythm, normal S1/S2. No murmurs. No JVD. No S3/S4. No LE edema. Peripheral pulses 2+ bilaterally. Pulm: Clear to auscultation bilaterally. No wheezing or rhonchi. Abdomen: Soft. Bowel sounds present. No tenderness or distension. Extremity: Warm. No edema. No clubbing or cyanosis. Neuro: Alert and orientedx2. Sensation intact throughout to light touch. Tender to palpation in lower spine midline and on right side. Unable to respond to complex questions, forgets information between conversations. Skin: No lesions, erythema, or skin changes. Psych: Mood appropriate. Appropriate insight. Laboratory Results Recent Results (from the past 24 hour(s)) POCT glucose Collection Time: 07/09/24 11:36 AM Result Value Ref Range Glucose, POC 195 70 - 199 mg/dL aPTT Collection Time: 07/09/24 4:27 PM Result Value Ref Range aPTT 70 (H) 28 - 38 sec POCT glucose Collection Time: 07/09/24 4:45 PM Result Value Ref Range Glucose, POC 296 (H) 70 - 199 mg/dL POCT glucose Collection Time: 07/09/24 8:33 PM Result Value Ref Range Glucose, POC 291 (H) 70 - 199 mg/dL POCT glucose Collection Time: 07/09/24 10:46 PM Result Value Ref Range Glucose, POC 197 70 - 199 mg/dL CBC without differential Collection Time: 07/09/24 11:48 PM Result Value Ref Range WBC 7.6 3.8 - 9.9 K/cumm Hgb 10.8 (L) 11.9 - 15.5 g/dL Hct 33.4 (L) 35.6 - 45.5 % Plt 333 150 - 400 K/cumm MPV 9.8 9.1 - 12.3 fL RBC 3.30 (L) 3.90 - 5.20 M/cumm MCV 101.2 (H) 81.3 - 96.4 fL MCH 32.7 27.1 - 33.3 pg MCHC 32.3 32.3 - 35.7 g/dL RDW CV 14.2 11.1 - 14.9 % RDW SD 52.9 (H) 35.7 - 48.1 fL NRBC abs 0.00 0.00 - 0.01 K/cumm Comprehensive metabolic panel Collection Time: 07/09/24 11:48 PM Result Value Ref Range Sodium 136 135 - 145 mmol/L Potassium, pl 3.5 3.3 - 4.9 mmol/L Chloride 99 97 - 110 mmol/L CO2 33 (H) 22 - 32 mmol/L Anion gap 4 2 - 15 mmol/L BUN 16 6 - 25 mg/dL Creatinine 1.04 0.60 - 1.10 mg/dL Glucose 156 70 - 199 mg/dL Calcium 9.1 8.5 - 10.3 mg/dL Bilirubin, total 0.4 0.1 - 1.2 mg/dL Protein, pl 7.2 6.5 - 8.5 g/dL Albumin 3.3 (L) 3.5 - 5.0 g/dL Alk phos 162 (H) 40 - 130 Units/L ALT 6 (L) 7 - 45 Units/L AST 26 10 - 45 Units/L aPTT Collection Time: 07/09/24 11:48 PM Result Value Ref Range aPTT 61 (H) 28 - 38 sec eGFR Collection Time: 07/09/24 11:48 PM Result Value Ref Range eGFR 61 >=60 mL/min/1.73 m2 aPTT Collection Time: 07/10/24 6:43 AM Result Value Ref Range aPTT 119 (H) 28 - 38 sec POCT glucose Collection Time: 07/10/24 7:45 AM Result Value Ref Range Glucose, POC 144 70 - 199 mg/dL Imaging Results GT 07/10/24: Aortic valve: tricuspid, and is mildly thickened, [...] 2=Hypo 3=Akinetic 4=Dyskin. 5=Aneurysm 0=Not visualized) Short Okarche-Gastric:=2 S=2 I=2 P=2 L=2 A=2 Long Okarche-Gastric:BP=2 BA=2 MP=2 MA=2 AP=2 AA=2 Chamber Dimensions: RA: increased LA: increased, 5 cm RV: Normal LV: mildly dilated LV function: Moderate global left ventricular dysfunction. RV function: Normal Pericardium: No pericardial effusion seen Diastolic function: not assessed Atrial Septum: Normal Wall Thickness: RV: Normal LV: Normal Sedation/Tolerance: Sedation: GT performed with monitored anesthesia care Meds Admin: [...] no MS, mild TV regurgitation, normal PV. GT Summary Emily King performed the GT probe placement with Da Ayala MD present. [...] imaging of device wire and TV vegetation ASSESSMENT & PLAN 63 y.o. female with a PMHx significant for MSSA bacteremia (05/2024), A-fib, HFrEF (EF 30%), T2DM, GERD, Intellectual disability, OAB, JOSE, and hypothyroidism who presented to OSH 06/28 for back pain. Found to have + blood cx for staph aureus and CT c/f OM. Tx to [facility] for further evaluation and treatment. #MSSA bacteremia, recurrent, secondary to infected ICD lead #Biotronik ICD echodensity #History of Vfib/VT Recent admit 05/2024 for MSSA bacteremia. Per outside hospital TTE and GT no vegetations on valves or on ICD wires. Treated with 4 weeks of IV Ancef ending 06/21. Review of ID notes from OSH show blood cultures remained clear on 06/13. 07/01 blood cx were drawn x2, 1/ then second set /2 MSSA. Vanc + Ancef started, Vanc d/c 07/03. 07/02 cx NGTD. Concern for lack of source control given recurrence, with potential sources including ICD, heart valves, osteomyelitis of spine given patient's back pain.ICD most likely given TTE findings, cannot rule out valves or spine presently. If ICD involved, patient will need source control. Currently no signs of sepsis. - blood cultures redrawn on admission 07/08, NGTD - TTE performed to re-evaluate leads demonstrating echodensity on V lead of ICD. Will likely require ICD removal - continue Ancef 2g Q8, outside hospital susceptibilities in wallpaper hanger, susceptible to oxacillin - ICD: placed 2017 per sister, recurrent events of VF/VT requiring shocks, most recently 5 shocks on 06/10/24. Interrogated 07/07 (full results in folder), not pacer dependent - Cardiac surgery, EP, ID consulted, appreciate ongoing recommendations - Per ID recommendations, ordered HIV testing, NR 07/10 updates: - MRI spine pending - GT today demonstrating vegetation on TV, no vegetation on ICD, thrombus in LA - updated systems security consultant recommendations pending #HFrEF EF of 30% on 05/2024 echocardiogram, mild-mod MR, RVSP 42 mild-mod TR. On chart review, patient hadHFrEF dating back to at least 2016, though etiology of this not clearly established. Current GDMT includes metoprolol, Entresto 24-26 BID, furosemide 40 daily - Not on Farxiga due to recurrent UTI - Initiated spironolactone 12.5 mg 07/09 - Consider up-titrating Entresto if BP allows during admission #Persistent atrial fibrillation #MAULIK Thrombus In AFib on admission. Previously on Tikosyn, however, taken off of Tikosyn after admission for MSSA, and was continued on Xarelto for AC and Coreg for rate control in May. GT in May 2024 performed to eval for endocarditis showed LA thrombus; had been on Xarelto at the time per chart review. At OSH just prior to this admission, patient had RVR and received dual tim blockade with dilt and metoprolol, stopped dilt 2/2 reduced EF and continued on metoprolol . - anticoagulation: Heparin gtt in preparation for upcoming procedures - rate control with metoprolol given recent Afib RVR #T2DM Home regimen: glargine 18u; Lispro 10 TID + SSI. A1c here 7.7 on 07/07/24. - Glargine at OSH 18u, Lispro 6u TID -> 7 units TID 07/09 - POC glucose TIDAC #Anemia: Hgb 10.8 on arrival. Bl: 11-12. MCV elevated. B12 > 1000 at OSH, Folate wnl. CTM #Recurrent UTI #OAB Per family, has been treated multiple times recently for UTIs. Her symptoms are not urinary in nature, her symptoms typically are becoming delirious and belligerent. UA at outside hospital with 0-5 WBC, 3+ nitrate. Cx was performed which showed >100,000 colonies E coli. Given recurrence of events, would consider colonization versus recurrent UTI. - Did not treat given favoring colonization over UTI without specific symptoms, ongoing symptoms more likely attributed to bacteremia - Given ongoing concerns with family surrounding possible UTI, ordered culture 07/10 - Home Vibegron 75 --> change to Mirabegron for formulary #Hypothyroidism: Synthroid 75mcg, TSH 2.8 #Depression: Continue Lexapro 10, nortriptyline 10 #GERD: Pantoprazole 20 #Constipation: Senna-Docusate BID #JOSE: ordered CPAP, pt reportedly intermittently compliant at home #Hx of intellectual disability/developmental delay: Sister Dilia currently takes care of patient, other sister Peg assists. Both discuss pt medical decisions together. Patient is not consentable Code Status: Full Code Disposition: pending Best contact: Primary Emergency Contact: Dilia Moise Diet: NPO Diet Sips with meds VTE Prophylaxis: Heparin gtt PT: PT Recommendation/Plan: Jail Facility OT:OT Recommendation: Jail Facility Cosigned by Ynes Roman MD at 07/10/2024 4:44 PM CDT Associated attestation - Ynes Roman MD - 07/10/2024 4:44 PM CDT Attending Documentation I have seen and examined the patient on 07/10/24. I agree with the findings and plan of care as discussed with the resident/fellow. Supplementary Attestation Today, I am treating the patient for MSSA bacteremia, originally observed vegetation on TTE now with GT showing TV vegetation as described in the note. CTS to assess. ID following, appreciate recommendations for optimizing abx therapy. Ynes Roman MD 07/10/2024 4:42 PM * Valentina Brown MD - 07/09/2024 1:23 PM CDT Medicine Daily Progress Note Patient: Lei Rodriguez : 1960 (63 y.o.) Date of Admission: 07/07/2024 Date of Service: 07/09/24 SUBJECTIVE Interval Events: - No acute events overnight - Patient continues to complain of back pain, no other complaints, vitals and exam stable - Wore CPAP today Plan for Today: - HIV testing as recommended by ID - Adding spironolactone to GDMT - GT tomorrow, NPO at midnight - ICD should be MRI compatible. Given persistent back pain and concern for osteomyelitis as additional infectious source, will order MRI spine OBJECTIVE Vitals Most Recent: Vitals: 07/09/24 1125 BP: 121/83 Pulse: 92 Resp: 20 Temp: 36.9 ??C (98.4 ??F) SpO2: 96% 24 Hour Min/Max: Temp Min: 36.4 ??C (97.6 ??F) Max: 36.9 ??C (98.4 ??F) Pulse Min: 66 Max: 96 BP Min: 105/54 Max: 130/78 Resp Min: 16 Max: 20 SpO2 Min: 95 % Max: 99 % Intake/Output Intake/Output Summary (Last 24 hours) at 07/09/2024 1326 Last data filed at 07/09/2024 0855 Gross per 24 hour Intake 590 ml Output 520 ml Net 70 ml Current Medications Scheduled Meds: Scheduled Medications Medication Dose Route Frequency ceFAZolin (ANCEF) 2,000 mg/20 mL in sterile water (premix) 2,000 mg 2,000 mg intravenous Q8H [facility] escitalopram (LEXAPRO) tablet 10 mg 10 mg oral Daily furosemide (LASIX) tablet 40 mg 40 mg oral Daily insulin glargine (LANTUS, SEMGLEE) 100 unit/mL injection 18 Units 18 Units subcutaneous QAM insulin lispro (HumaLOG, ADMELOG) 100 unit/mL injection 0-4 Units 0-4 Units subcutaneous Nightly insulin lispro (HumaLOG, ADMELOG) 100 unit/mL injection 0-5 Units 0-5 Units subcutaneous TID with meals insulin lispro (HumaLOG, ADMELOG) 100 unit/mL injection 6 Units 6 Units subcutaneous TID with meals levothyroxine (SYNTHROID) tablet 75 mcg 75 mcg oral Daily - 0600 magnesium oxide (MAG-OX) tablet 400 mg 400 mg oral Daily metoprolol XL (TOPROL-XL) extended release tablet 50 mg 50 mg oral Daily mirabegron ER (MYRBETRIQ) extended release tablet 25 mg 25 mg oral Daily nortriptyline (PAMELOR) capsule 10 mg 10 mg oral Daily pantoprazole DR (PROTONIX) extended release tablet 20 mg 20 mg oral Daily sacubitriL-valsartan (ENTRESTO) 24-26 mg tablet 1 tablet 1 tablet oral BID senna-docusate (PERICOLACE) 8.6-50 mg per tablet 1 tablet 1 tablet oral BID sodium chloride 0.9% flush 0.5-20 mL 0.5-20 mL intra-catheter Q8H GALINA spironolactone (ALDACTONE) split tablet 12.5 mg 12.5 mg oral Daily Continuous Meds: Current Facility-Administered Medications Medication Dose Route Frequency Last Admin heparin 0-33 Units/kg/hr intravenous Titrated 16 Units/kg/hr at 07/09/24 1028 PRN Meds: PRN Medications Medication Dose Route Frequency Last Admin acetaminophen (TYLENOL) tablet 650 mg 650 mg oral Q4H PRN 650 mg at 07/08/24 1245 Carrier Fluids for Secondary Infusion - 0.9% Sodium Chloride 30 mL intravenous PRN cyclobenzaprine (FLEXERIL) tablet 5 mg 5 mg oral TID PRN 5 mg at 07/08/24 1245 dextrose gel in packet 15 g 15 g oral Q15 Min PRN Or dextrose (D10W) 10% bolus 250 mL 250 mL intravenous Q15 Min PRN glucagon injection 1 mg 1 mg intramuscular Q30 Min PRN heparin 1,000 unit/mL injection 4,500 Units 40 Units/kg intravenous Q6H PRN 4,500 Units at 637 Or heparin 1,000 unit/mL injection 9,100 Units 80 Units/kg intravenous Q6H PRN ondansetron ODT (ZOFRAN-ODT) disintegrating tablet 4 mg 4 mg oral Q6H PRN Or ondansetron (ZOFRAN) injection 4 mg 4 mg intravenous Q6H PRN polyethylene glycol (MIRALAX) packet 17 g 17 g oral Daily PRN ramelteon (ROZEREM) tablet 8 mg 8 mg oral Nightly PRN sodium chloride 0.9% flush 0.5-20 mL 0.5-20 mL intra-catheter PRN Physical Exam Gen: No apparent distress. Resting comfortably. Cooperative. HEENT: No conjunctival pallor or injection, no icterus. No nasal discharge. Moist mucus membranes. Cardiac: Irregularly irregular rate and rhythm, normal S1/S2. No murmurs. No JVD. No S3/S4. No LE edema. Peripheral pulses 2+ bilaterally. Pulm: Clear to auscultation bilaterally. No wheezing or rhonchi. Abdomen: Soft. Bowel sounds present. No tenderness or distension. Extremity: Warm. No edema. No clubbing or cyanosis. Neuro: Alert and orientedx3. Sensation intact throughout to light touch. Tender to palpation in lower spine midline and on right side. Unable to respond to complex questions, forgets information between conversations. Skin: No lesions, erythema, or skin changes. Psych: Mood appropriate. Appropriate insight. Laboratory Results Recent Results (from the past 24 hour(s)) POCT glucose Collection Time: 07/08/24 3:44 PM Result Value Ref Range Glucose, POC 195 70 - 199 mg/dL POCT glucose Collection Time: 07/08/24 8:16 PM Result Value Ref Range Glucose, POC 190 70 - 199 mg/dL CBC without differential Collection Time: 07/08/24 9:48 PM Result Value Ref Range WBC 6.1 3.8 - 9.9 K/cumm Hgb 10.8 (L) 11.9 - 15.5 g/dL Hct 33.9 (L) 35.6 - 45.5 % Plt 328 150 - 400 K/cumm MPV 10.4 9.1 - 12.3 fL RBC 3.40 (L) 3.90 - 5.20 M/cumm MCV 99.7 (H) 81.3 - 96.4 fL MCH 31.8 27.1 - 33.3 pg MCHC 31.9 (L) 32.3 - 35.7 g/dL RDW CV 14.1 11.1 - 14.9 % RDW SD 51.6 (H) 35.7 - 48.1 fL NRBC abs 0.00 0.00 - 0.01 K/cumm Comprehensive metabolic panel Collection Time: 07/08/24 9:48 PM Result Value Ref Range Sodium 135 135 - 145 mmol/L Potassium, pl 4.4 3.3 - 4.9 mmol/L Chloride 100 97 - 110 mmol/L CO2 27 22 - 32 mmol/L Anion gap 8 2 - 15 mmol/L BUN 18 6 - 25 mg/dL Creatinine 0.89 0.60 - 1.10 mg/dL Glucose 186 70 - 199 mg/dL Calcium 9.2 8.5 - 10.3 mg/dL Bilirubin, total 0.3 0.1 - 1.2 mg/dL Protein, pl 7.2 6.5 - 8.5 g/dL Albumin 3.1 (L) 3.5 - 5.0 g/dL Alk phos 171 (H) 40 - 130 Units/L ALT 11 7 - 45 Units/L AST 35 10 - 45 Units/L aPTT Collection Time: 07/08/24 9:48 PM Result Value Ref Range aPTT 63 (H) 28 - 38 sec eGFR Collection Time: 07/08/24 9:48 PM Result Value Ref Range eGFR 73 >=60 mL/min/1.73 m2 HIV 1/2 Antibody plus p24 Antigen Blood Collection Time: 07/08/24 9:48 PM Specimen: Blood Result Value Ref Range HIV 1/2 ab + p24 ag Nonreactive Nonreactive aPTT Collection Time: 07/09/24 4:59 AM Result Value Ref Range aPTT 64 (H) 28 - 38 sec Potassium, whole blood Collection Time: 07/09/24 7:11 AM Result Value Ref Range Potassium, bld 3.7 3.3 - 4.9 mmol/L POCT glucose Collection Time: 07/09/24 7:56 AM Result Value Ref Range Glucose, POC 167 70 - 199 mg/dL POCT glucose Collection Time: 07/09/24 11:36 AM Result Value Ref Range Glucose, POC 195 70 - 199 mg/dL Imaging Results Transthoracic Echo (TTE) Complete W Doppler/CF Patient name: Lei Rodriguez Date of test: 07/07/2024 Type of test: TTE w/Doppler Hospital #: 0 Date of : 1960 (F) Statistics Teacher: Linda Caputo RDCS Referring Physician: ELVIRA COOPER MD Contrast Agent: 0.45 ml Definity Administered, (1.05 ml wasted). Contrast Administered by: Hailee Burroughs RN Supervised/Interpreted by: Nikko Greenwood MD. Diagnosis: Location: [facility] Reason for test: c/f vegetation on pacer leads MV Structure: Normal, MV Motion: Normal, Mitral Annulus: mildly calcified AV Structure: tricuspid and is Normal, AV Motion: Normal Aotic root: Normal, TM: Normal, PV: Normal Valvular Vegetations: cannot r/o tricuspid, Mass/Thrombi: none seen RA: mildly increased Measurements: M-Mode Normal Aotic Root: <3.8 LA: <3.8 RV: <2.8 LV(ED): <5.7 LV(ES): Variable 2D Linear Normal Aotic Root: 3.1 cm <3.6 Ao Indexed: 1.4 cm/M2 <2.0 LA: <3.8 RV: 3.7 cm <4.2 LV(ED): 5.7 cm <5.3 LV(ES): 4.4 cm <3.5 2D Vol. Normal Indexed Indexed Normal RA: 88.0 ml 40.5 ml/M2 9-33 LA: 85.0 ml 39.1 ml/M2 16-34 RV: <11.6 LV(ED): 132.0 ml 46-106 60.7 ml/M2 <62 LV(ES): 93.0 ml 14-42 42.8 ml/M2 <25 3D Vol. Indexed Normal LV(ED): <62 LV(ES): <24 LV EF: 30 % (Mod. Marsh's) (Normal: >=54%) LV Septum: 0.7 cm (Normal: <0.9 cm) Wall Motion Scoring (1=Normal 2=Hypo 3=Akinetic 4=Dyskin./Aneurysm 0=Not visualized) Parasternal Long Okarche:MAS=2 BAS=2 MIL=2 HECTOR=2 Parasternal Short Okarche:MAS=2 MIS=2 AL=2 MIL=2 MAL=2 MA=2 Apical 4 Chambers:=2 MIS=2 BIS=2 BAL=2 MAL=2 AL=2 AC=2 Apical 2 Chambers:AI=2 AL=2 BI=2 BA=2 MA=2 AA=2 AC=2 LV Global Longitudinal Strain: RV Global Longitudinal Strain: LV Function: Moderate Global reduction in LV Ejection Fraction (EF=30-40%); EF via modified Marsh's. RV Function: Normal Septal Motion: Normal Pericardial Effusion: small Atrial Septum: Normal DOPPLER/COLOR FLOW DOPPLER RESULTS: Diastolic Function: indeterminate Tricuspid Valve: mild TV regurgitation Pulmonic Valve: mild LA AV Regurgitation: Mild AR AV Stenosis: no AV Area: cm2 AV Pressure Gradient (mmHg): Mean: 0, Peak:0 MV Regurgitation: Mild MR MV Stenosis: no MS MV Area: cm2 MV Pressure Gradient (mmHg): Mean: 0 MV ERO: cm Regurg. Vol.: ml/beat Regurg. Frac.: % PA Pressure: 28 mmHg DOPPLER/COLOR FOLOW DOPPLER COMMENTS: Mild AR, Mild MR, no , no MS, mild TV regurgitation, mild LA. Diastolic function: indeterminate CONTRAST: 0.45 ml Definity Administered, (1.05 ml wasted). SUMMARY: Mildly dilated LV, moderate to severe LV systolic dysfunction, EF=30%. Normal RV size and function. Mild biatrial enlargement. Normal IVC. Normal size aortic root. Mild MR, AR, TR. Small (9x7mm), modile echodensity attached to the V lead at the atrial level just proximal to TV, consider thrombus vs. vegetation. Cannot exclude involvement of TV. Consider GT to further evaluate. Confirmed on 07/07/2024 - 15:43:01 by Nikko Greenwood MD. By signing this report, the attending arboreal scientist certifies that he or she has personally supervised and interpreted the echocardiogram and has reviewed and or edited and agrees with the written comments contained within the report. Neuro CT Outside Consult Narrative: EXAMINATION: RADIOLOGY CONSULTATION ON OUTSIDE IMAGING STUDY STUDY INITIALLY PERFORMED: 06/10/2024 and 07/02/2024 at [facility]. TYPE OF STUDY: Multiple CT images of the head, cervical and thoracic spine without and with contrast are provided at the time of this interpretation. CONTRAST ROUTE: Intravenous The protocol was adequate to address the clinical question. The outside final report was not available at the time of this second opinion interpretation. TYPE OF CONSULTATION: Consult on outside imaging study with images submitted through Outside Image Sharing Service DATE OF CONSULTATION: 07/07/2024 10:13 AM HISTORY: Osteomyelitis COMPARISON: Outside CT cervical spine dated 06/10/2024. FINDINGS: Please refer to separate report for incidental findings. Head CT: Moderate to severe microvascular ischemic disease without prior imaging to assess stability. Severe intracranial atherosclerotic disease. No large acute territory infarct and no acute intracranial hemorrhage. No herniation or hydrocephalus. CT cervical spine: Multilevel sswa-[id number]-nszsxkhp degenerative change without high-grade spinal canal or neural foraminal narrowing. No CT evidence of osteomyelitis in the cervical spine. Thoracic spine: Multilevel ylyu-nq-ggnohhzg degenerative change without high-grade spinal canal or neural foraminal narrowing. No CT evidence of osteomyelitis in the cervical spine. Mediastinal adenopathy, cardiomegaly, pericardial effusion and lung nodules are better evaluated on concurrent CT chest, abdomen and pelvis. Lumbar spine: Multilevel oumy-yj-shzdtizk degenerative change without high-grade spinal canal or neural foraminal narrowing. No CT evidence of osteomyelitis in the cervical spine. Impression: Please refer to separate report for incidental findings. Head CT: No large acute territory infarct and no acute intracranial hemorrhage. Moderate to severe microvascular ischemic disease without prior imaging to assess stability. CT total spine: No CT evidence of osteomyelitis however this does not exclude the diagnosis; an MR spine is recommended for further evaluation. Mediastinal adenopathy, cardiomegaly, pericardial effusion and lung nodules are better evaluated on concurrent CT chest, abdomen and pelvis. The findings, conclusions and recommendations within this report do not replace the initial findings, conclusions and recommendations made at the facility where the study was performed based upon the imaging and clinical condition at that time. Comparison with the prior report and clinical history is necessary. The provided images may or may not represent the [facility] source data set and thus may contain changes that may lower the accuracy of this second-opinion interpretation. Electronically signed by: Carlota Murguia M.D. Neuro CT Outside Consult Narrative: EXAMINATION: RADIOLOGY CONSULTATION ON OUTSIDE IMAGING STUDY STUDY INITIALLY PERFORMED: 06/10/2024 and 07/02/2024 at [facility]. TYPE OF STUDY: Multiple CT images of the head, cervical and thoracic spine without and with contrast are provided at the time of this interpretation. CONTRAST ROUTE: Intravenous The protocol was adequate to address the clinical question. The outside final report was not available at the time of this second opinion interpretation. TYPE OF CONSULTATION: Consult on outside imaging study with images submitted through Outside Image Sharing Service DATE OF CONSULTATION: 07/07/2024 10:13 AM HISTORY: Osteomyelitis COMPARISON: Outside CT cervical spine dated 06/10/2024. FINDINGS: Please refer to separate report for incidental findings. Head CT: Moderate to severe microvascular ischemic disease without prior imaging to assess stability. Severe intracranial atherosclerotic disease. No large acute territory infarct and no acute intracranial hemorrhage. No herniation or hydrocephalus. CT cervical spine: Multilevel bevt-db-rybugruf degenerative change without high-grade spinal canal or neural foraminal narrowing. No CT evidence of osteomyelitis in the cervical spine. Thoracic spine: Multilevel wuil-zb-aqhtscjf degenerative change without high-grade spinal canal or neural foraminal narrowing. No CT evidence of osteomyelitis in the cervical spine. Mediastinal adenopathy, cardiomegaly, pericardial effusion and lung nodules are better evaluated on concurrent CT chest, abdomen and pelvis. Lumbar spine: Multilevel mqiz-kx-pdbwxzav degenerative change without high-grade spinal canal or neural foraminal narrowing. No CT evidence of osteomyelitis in the cervical spine. Impression: Please refer to separate report for incidental findings. Head CT: No large acute territory infarct and no acute intracranial hemorrhage. Moderate to severe microvascular ischemic disease without prior imaging to assess stability. CT total spine: No CT evidence of osteomyelitis however this does not exclude the diagnosis; an MR spine is recommended for further evaluation. Mediastinal adenopathy, cardiomegaly, pericardial effusion and lung nodules are better evaluated on concurrent CT chest, abdomen and pelvis. The findings, conclusions and recommendations within this report do not replace the initial findings, conclusions and recommendations made at the facility where the study was performed based upon the imaging and clinical condition at that time. Comparison with the prior report and clinical history is necessary. The provided images may or may not represent the [facility] source data set and thus may contain changes that may lower the accuracy of this second-opinion interpretation. Electronically signed by: Carlota Murguia M.D. Neuro CT Outside Consult Narrative: EXAMINATION: RADIOLOGY CONSULTATION ON OUTSIDE IMAGING STUDY STUDY INITIALLY PERFORMED: 06/10/2024 and 07/02/2024 at [facility]. TYPE OF STUDY: Multiple CT images of the head, cervical and thoracic spine without and with contrast are provided at the time of this interpretation. CONTRAST ROUTE: Intravenous The protocol was adequate to address the clinical question. The outside final report was not available at the time of this second opinion interpretation. TYPE OF CONSULTATION: Consult on outside imaging study with images submitted through Outside Image Sharing Service DATE OF CONSULTATION: 07/07/2024 10:13 AM HISTORY: Osteomyelitis COMPARISON: Outside CT cervical spine dated 06/10/2024. FINDINGS: Please refer to separate report for incidental findings. Head CT: Moderate to severe microvascular ischemic disease without prior imaging to assess stability. Severe intracranial atherosclerotic disease. No large acute territory infarct and no acute intracranial hemorrhage. No herniation or hydrocephalus. CT cervical spine: Multilevel tkrq-bf-dpbwiqax degenerative change without high-grade spinal canal or neural foraminal narrowing. No CT evidence of osteomyelitis in the cervical spine. Thoracic spine: Multilevel zzpb-hu-tbyahpxp degenerative change without high-grade spinal canal or neural foraminal narrowing. No CT evidence of osteomyelitis in the cervical spine. Mediastinal adenopathy, cardiomegaly, pericardial effusion and lung nodules are better evaluated on concurrent CT chest, abdomen and pelvis. Lumbar spine: Multilevel yqcu-fb-japyihnn degenerative change without high-grade spinal canal or neural foraminal narrowing. No CT evidence of osteomyelitis in the cervical spine. Impression: Please refer to separate report for incidental findings. Head CT: No large acute territory infarct and no acute intracranial hemorrhage. Moderate to severe microvascular ischemic disease without prior imaging to assess stability. CT total spine: No CT evidence of osteomyelitis however this does not exclude the diagnosis; an MR spine is recommended for further evaluation. Mediastinal adenopathy, cardiomegaly, pericardial effusion and lung nodules are better evaluated on concurrent CT chest, abdomen and pelvis. The findings, conclusions and recommendations within this report do not replace the initial findings, conclusions and recommendations made at the facility where the study was performed based upon the imaging and clinical condition at that time. Comparison with the prior report and clinical history is necessary. The provided images may or may not represent the nenana source data set and thus may contain changes that may lower the accuracy of this second-opinion interpretation. Electronically signed by: Carlota Murguia M.D. Neuro CT Outside Consult Narrative: EXAMINATION: RADIOLOGY CONSULTATION ON OUTSIDE IMAGING STUDY STUDY INITIALLY PERFORMED: 06/10/2024 and 07/02/2024 at [facility]. TYPE OF STUDY: Multiple CT images of the head, cervical and thoracic spine without and with contrast are provided at the time of this interpretation. CONTRAST ROUTE: Intravenous The protocol was adequate to address the clinical question. The outside final report was not available at the time of this second opinion interpretation. TYPE OF CONSULTATION: Consult on outside imaging study with images submitted through Outside Image Sharing Service DATE OF CONSULTATION: 07/07/2024 10:13 AM HISTORY: Osteomyelitis COMPARISON: Outside CT cervical spine dated 06/10/2024. FINDINGS: Please refer to separate report for incidental findings. Head CT: Moderate to severe microvascular ischemic disease without prior imaging to assess stability. Severe intracranial atherosclerotic disease. No large acute territory infarct and no acute intracranial hemorrhage. No herniation or hydrocephalus. CT cervical spine: Multilevel ffsf-kq-wbohzahh degenerative change without high-grade spinal canal or neural foraminal narrowing. No CT evidence of osteomyelitis in the cervical spine. Thoracic spine: Multilevel pksf-sa-wwwkcxyb degenerative change without high-grade spinal canal or neural foraminal narrowing. No CT evidence of osteomyelitis in the cervical spine. Mediastinal adenopathy, cardiomegaly, pericardial effusion and lung nodules are better evaluated on concurrent CT chest, abdomen and pelvis. Lumbar spine: Multilevel cixl-ci-ozppoxki degenerative change without high-grade spinal canal or neural foraminal narrowing. No CT evidence of osteomyelitis in the cervical spine. Impression: Please refer to separate report for incidental findings. Head CT: No large acute territory infarct and no acute intracranial hemorrhage. Moderate to severe microvascular ischemic disease without prior imaging to assess stability. CT total spine: No CT evidence of osteomyelitis however this does not exclude the diagnosis; an MR spine is recommended for further evaluation. Mediastinal adenopathy, cardiomegaly, pericardial effusion and lung nodules are better evaluated on concurrent CT chest, abdomen and pelvis. The findings, conclusions and recommendations within this report do not replace the initial findings, conclusions and recommendations made at the facility where the study was performed based upon the imaging and clinical condition at that time. Comparison with the prior report and clinical history is necessary. The provided images may or may not represent the nenana source data set and thus may contain changes that may lower the accuracy of this second-opinion interpretation. Electronically signed by: Carlota Murguia M.D. CT Body Outside Consult Narrative: EXAMINATION: RADIOLOGY CONSULTATION ON OUTSIDE IMAGING STUDY STUDY INITIALLY PERFORMED: 06/28/2024 and 07/06/[address] [facility]. TYPE OF STUDY: Multiple CT images of the chest, abdomen, and pelvis without intravenous contrast are provided at the time of this interpretation. CONTRAST ROUTE: No contrast was administered. The protocol was adequate to address the clinical question. The outside final report was available at the time of this second opinion interpretation. TYPE OF CONSULTATION: Consult on outside imaging study with images submitted through Outside Image Sharing Service DATE OF CONSULTATION: 07/07/2024 8:31 AM HISTORY: Back pain with history of bacteremia, concern for discitis osteomyelitis COMPARISON: Thoracic and lumbar spine CT dated 07/02/2024, CT abdomen pelvis 06/26/2024, CT chest 05/30/2024 FINDINGS: Unchanged wire in the right lower lobe pulmonary artery. There are multiple pulmonary nodules that have developed since 05/30/2024, including a 6 mm nodule in the right upper lobe on series 4 image 29, a 13 mm nodule in the right middle lobe on series 4 image 44, and an 11 mm nodule in the left lower lobe on series 4 image 54. No pleural effusion or pneumothorax. No focal consolidation. There is moderate cardiomegaly with pacemaker defibrillator leads terminating in the right atrium and right ventricle. Small pericardial effusion. There are multiple subcentimeter mediastinal lymph nodes are likely reactive, including a 13 mm pretracheal lymph node on series 3 image 35. Normal noncontrast appearance of the liver. Gallbladder is surgically absent. Pancreas, spleen, and adrenal glands are normal. Normal appearance of both kidneys with no hydronephrosis. Ureters are nondilated. Urinary bladder contains gas, possibly related to catheterization. Uterus is normal in size. No adnexal mass. Colonic diverticulosis is noted without evidence of diverticulitis. The appendix is not definitely seen. Small bowel and stomach are normal. No mesenteric, retroperitoneal, pelvic, or inguinal lymphadenopathy. No intra-abdominal free air or free fluid. Mild calcified atherosclerotic disease in the abdominal aorta. No suspicious osseous lesion. Impression: 1. New bilateral pulmonary nodules which have developed since 05/30/2024 and in the setting of bacteremia may represent septic emboli. 2. No acute process in the abdomen or pelvis or CT explanation for back pain The findings, conclusions and recommendations within this report do not replace the initial findings, conclusions and recommendations made at the facility where the study was performed based upon the imaging and clinical condition at that time. Comparison with the prior report and clinical history is necessary. The provided images may or may not represent the nenana source data set and thus may contain changes that may lower the accuracy of this second-opinion interpretation. Electronically signed by: Geo Patel MD, PHD CT Body Outside Consult Narrative: EXAMINATION: RADIOLOGY CONSULTATION ON OUTSIDE IMAGING STUDY STUDY INITIALLY PERFORMED: 06/28/2024 and 07/06/[address] [facility]. TYPE OF STUDY: Multiple CT images of the chest, abdomen, and pelvis without intravenous contrast are provided at the time of this interpretation. CONTRAST ROUTE: No contrast was administered. The protocol was adequate to address the clinical question. The outside final report was available at the time of this second opinion interpretation. TYPE OF CONSULTATION: Consult on outside imaging study with images submitted through Outside Image Sharing Service DATE OF CONSULTATION: 07/07/2024 8:31 AM HISTORY: Back pain with history of bacteremia, concern for discitis osteomyelitis COMPARISON: Thoracic and lumbar spine CT dated 07/02/2024, CT abdomen pelvis 06/26/2024, CT chest 05/30/2024 FINDINGS: Unchanged wire in the right lower lobe pulmonary artery. There are multiple pulmonary nodules that have developed since 05/30/2024, including a 6 mm nodule in the right upper lobe on series 4 image 29, a 13 mm nodule in the right middle lobe on series 4 image 44, and an 11 mm nodule in the left lower lobe on series 4 image 54. No pleural effusion or pneumothorax. No focal consolidation. There is moderate cardiomegaly with pacemaker defibrillator leads terminating in the right atrium and right ventricle. Small pericardial effusion. There are multiple subcentimeter mediastinal lymph nodes are likely reactive, including a 13 mm pretracheal lymph node on series 3 image 35. Normal noncontrast appearance of the liver. Gallbladder is surgically absent. Pancreas, spleen, and adrenal glands are normal. Normal appearance of both kidneys with no hydronephrosis. Ureters are nondilated. Urinary bladder contains gas, possibly related to catheterization. Uterus is normal in size. No adnexal mass. Colonic diverticulosis is noted without evidence of diverticulitis. The appendix is not definitely seen. Small bowel and stomach are normal. No mesenteric, retroperitoneal, pelvic, or inguinal lymphadenopathy. No intra-abdominal free air or free fluid. Mild calcified atherosclerotic disease in the abdominal aorta. No suspicious osseous lesion. Impression: 1. New bilateral pulmonary nodules which have developed since 05/30/2024 and in the setting of bacteremia may represent septic emboli. 2. No acute process in the abdomen or pelvis or CT explanation for back pain The findings, conclusions and recommendations within this report do not replace the initial findings, conclusions and recommendations made at the facility where the study was performed based upon the imaging and clinical condition at that time. Comparison with the prior report and clinical history is necessary. The provided images may or may not represent the nenana source data set and thus may contain changes that may lower the accuracy of this second-opinion interpretation. Electronically signed by: Geo Patel MD, PHD US Outside Consult Narrative: EXAMINATION: RADIOLOGY CONSULTATION ON OUTSIDE IMAGING STUDY STUDY INITIALLY PERFORMED: 07/01/2024 at [facility]. TYPE OF STUDY: Multiple ultrasound images without cine clips of the kidneys are provided at the time of this interpretation. TYPE OF CONSULTATION: Consult on outside imaging study with images submitted through Outside Image Sharing Service DATE OF CONSULTATION: 07/07/2024 7:58 AM HISTORY: Flank pain COMPARISON: CT performed on 06/26/2024 FINDINGS: The kidneys are upper limits of normal in size, measuring 13.9 cm on the right and 14.8 cm on the left. There is no hydronephrosis on either side. No suspicious renal lesion. No renal calculus. The bladder is partially distended but appears grossly normal. Impression: 1. No hydronephrosis. The findings and impression are based on the available images, which may not be underwriting service representative of the entire organ or disease entity. Also note that ultrasound image acquisition is mail handler equipment operator dependent, and that the study was performed outside our facility with no control over image acquisition. In addition, the provided images may or may not represent the nenana source data set and thus may contain changes that may lower the accuracy of this second-opinion interpretation. The findings, conclusions and recommendations within this report do not replace the initial findings, conclusions and recommendations made at the facility where the study was performed based upon the imaging and clinical condition at that time. Comparison with the prior report and clinical history is necessary. Electronically signed by: Kevin Gottlieb M.D. CT Body Outside Consult Narrative: EXAMINATION: CHANGE CONSULT ON OUTSIDE IMAGES TO REFERENCE IMAGES Impression: This study was initially nominated as a consult on outside images via Outside Image Sharing Service. However, a consult was not performed because a more recent study of the same exam type was nominated for consultation simultaneously. This study will be used as a comparison exam. Accordingly, there will be no separate report of this study generated by a [facility] Radiologist. Electronically signed by: Kevin Gottlieb M.D. XR Outside Reference Narrative: EXAMINATION: Images For Reference Purposes Only Impression: These images are for Reference purposes only and have not been reviewed by [facility] Radiology. There will be no report generated by a [facility] Radiologist. ASSESSMENT & PLAN 63 y.o. female with a PMHx significant for MSSA bacteremia (05/2024), A-fib, HFrEF (EF 30%), T2DM, GERD, Intellectual disability, OAB, JOSE, and hypothyroidism who presented to OSH 06/28 for back pain. Found to have + blood cx for staph aureus and CT c/f OM. Tx to [facility] for further evaluation and treatment. #MSSA bacteremia, recurrent, secondary to infected ICD lead #Biotronik ICD echodensity #History of Vfib/VT Recent admit 05/2024 for MSSA bacteremia. Per outside hospital TTE and GT no vegetations on valves or on ICD wires. Treated with 4 weeks of IV Ancef ending 06/21. Review of ID notes from OSH show blood cultures remained clear on 06/13. 07/01 blood cx were drawn x2, 10/11 then second set 11/11 MSSA. Vanc + Ancef started, Vanc d/c 07/03. 07/02 cx NGTD. Concern for lack of source control given recurrence, with potential sources including ICD, heart valves, osteomyelitis of spine given patient's back pain.ICD most likely given TTE findings, cannot rule out valves or spine presently. If ICD involved, patient will need source control. Currently no signs of sepsis. - blood cultures redrawn on admission 07/08, NGTD - TTE performed to re-evaluate leads demonstrating echodensity on V lead of ICD. Will likely require ICD removal - continue Ancef 2g Q8, outside hospital susceptibilities in wallpaper hanger, susceptible to oxacillin - ICD: placed 2016 per sister, recurrent events of VF/VT requiring shocks, most recently 5 shocks on 06/10/24. Interrogated 07/07 (full results in folder), not pacer dependent - Cardiac surgery, EP, ID consulted, appreciate ongoing recommendations 07/09 updates: - Per ID recommendations, ordered HIV testing, NR - Ordered MRI total spine 07/09 given concern for osteomyelitis, assess for additional infectious source - GT pending, NPO at [facility], scheduled for tomorrow #Persistent atrial fibrillation #MAULIK Thrombus In AFib on admission. Previously on Tikosyn, however, taken off of Tikosyn after admission for MSSA, and was continued on Xarelto for AC and Coreg for rate control in May. GT in May 2024 performed to eval for endocarditis showed LA thrombus; had been on Xarelto at the time per chart review. At OSH just prior to this admission, patient had RVR and received dual tim blockade with dilt and metoprolol, stopped dilt 2/2 reduced EF and continued on metoprolol . - anticoagulation: Heparin gtt in preparation for upcoming procedures - rate control with metoprolol given recent Afib RVR #HFrEF EF of 30% on 05/2024 echocardiogram, mild-mod MR, RVSP 42 mild-mod TR. On chart review, patient hadHFrEF dating back to at least 2016, though etiology of this not clearly established. Current GDMT includes metoprolol, Entresto 24-26 BID, furosemide 40 daily - Not on Farxiga due to recurrent UTI - Initiated spironolactone 12.5 mg 07/09 #Recurrent UTI #OAB Per family, has been treated multiple times recently for UTIs. Her symptoms are not urinary in nature, her symptoms typically are becoming delirious and belligerent. UA at outside hospital with 0-5 WBC, 3+ nitrate. Cx was performed which showed >100,000 colonies E coli. Given recurrence of events, would consider colonization versus recurrent UTI. - Did not treat given favoring colonization over UTI without specific symptoms, ongoing symptoms more likely attributed to bacteremia - Home Vibegron 75 --> change to Mirabegron for formulary #Anemia: Hgb 10.8 on arrival. Bl: 11-12. MCV elevated. B12 > 1000 at OSH, Folate wnl - CTM #T2DM Home regimen: glargine 18u; Lispro 10 TID + SSI. A1c here 7.7 on 07/07/24. - Glargine at OSH 18u, Lispro 6u TID -> 7 units TID 07/09 - POC glucose TIDAC #Hypothyroidism: Synthroid 75mcg, TSH 2.8 #Depression: Continue Lexapro 10, nortriptyline 10 #GERD: Pantoprazole 20 #Constipation: Senna-Docusate BID #JOSE: ordered CPAP, pt reportedly intermittently compliant at home #Hx of intellectual disability/developmental delay: Sister Dilia currently takes care of patient, other sister Peg assists. Both discuss pt medical decisions together. Patient is not consentable Code Status: Full Code Disposition: pending Best contact: Primary Emergency Contact: Dilia Moise Diet: Adult Diet Restricted; 2 GM Sodium NPO Diet Sips with meds VTE Prophylaxis: heparin gtt PT: PT Recommendation/Plan: Jail Facility OT: Valentina Brown MD PGY-1 Internal Medicine Cosigned by Ynes Roman MD at 07/09/2024 9:41 PM CDT Associated attestation - nYes Roman MD - 07/09/2024 9:41 PM CDT Attending Documentation I have seen and examined the patient on 07/09/24. I agree with the findings and plan of care as documented in the resident's/fellow's note. Supplementary Attestation Today, I am treating the patient for infected ICD, endocarditis as described in the note. Ynes Roman MD 07/09/2024 9:33 PM * Maite Post RN - 07/09/2024 1:00 PM CDT Informed pt that she can eat and pt requested to have chicken tenders and due to diet restriction; pt is unable to order thru dietary and informed pt of diet changes and pt stated, I don't care and I want chicken fingers. Sister the phone and informed this screen writer that pt is not allow to have red-sauce due to allergy. This screen writer then took the lunch tray away and called dietary for a different tray and notified dietary of such restriction. Then when this screen writer came back, overheard the sister on the phone speaking to the pt and stated, you are not allergic to red sauce, its just that you don't like to eat it. Pt yelled at the sister and stated, I don't care and why can I have chicken f ingers.? Then pt resume to comment, I wish I am the only child, and I wish they were . Oncetray replacement arrived to room, pt stated, I don't like turkey and chicken. Multiple staff tryto console pt and pt kept on screaming and yelling, I hate hospital and my family doesn't care about me. Sister stated, just let her cool down and she will be fine. Pt continue to refused the second lunch tray and offer alternative and pt refused. WCTM. * Ashley Travis [facility] - 07/09/2024 12:56 PM CDT Pharmacist Home Medication Review The clinical pharmacy order entry technician has completed a medication review with the patient/caregiver and has made the following edits to the home medication list: Medication additions N/A Medication deletions Ondansetron Medication alterations N/A Medication-related issues to be addressed: N/A Home medications - following pharmacist reconciliation Medications Prior to Admission Medication Sig Dispense Refill Last Dose albuterol HFA (PROVENTIL HFA,VENTOLIN HFA,PROAIR HFA) 90 mcg/actuation inhaler Inhale 2 puffs every6 (six) hours as needed for wheezing BASAGLAR 100 unit/mL (3 mL) pen for injection Inject 18 Units under the skin daily cholecalciferol (VITAMIN D-3) 5,000 unit tablet Take 1 tablet (5,000 Units total) by mouth daily docusate sodium (COLACE) 100 mg capsule Take 1 capsule (100 mg total) by mouth 2 (two) times a day Entresto 24-26 mg tablet Take 0.5 tablets by mouth 2 (two) times a day escitalopram (LEXAPRO) 10 mg tablet Take 1 tablet (10 mg total) by mouth daily Farxiga 10 mg tablet Take 1 tablet (10 mg total) by mouth daily ferrous sulfate 325 mg (65 mg of elemental iron) tablet Take 1 tablet (325 mg total) by mouth dailywith breakfast fluticasone propionate (FLONASE) 50 mcg/actuation nasal spray Administer 1 spray into each nostril daily as needed for rhinitis Gemtesa 75 mg tablet Take 1 tablet by mouth daily insulin lispro (HumaLOG) 100 unit/mL pen for injection Inject 8 Units under the skin 3 (three) times a day with meals (plus blood glucose mg/dL 150-199: 2 units, 200-249: 4 units, 250-299: 6 units, 300-349: 8 units, 350 or greater: 10 units. Notify provider for blood glucose greater than 299 mg/dL.Max daily dose 60) Refer to After Visit Summary for Sliding Scale Insulin Instructions. 15 mL 0 levothyroxine (SYNTHROID) 75 mcg tablet Take 1 tablet (75 mcg total) by mouth every morning magnesium oxide (MAG-OX) 400 mg (241.3 mg elemental magnesium) tablet Take 1 tablet (400 mg total) by mouth daily 30 tablet 0 metoprolol XL (TOPROL-XL) 50 mg extended release tablet Take 1 tablet (50 mg total) by mouth daily 30 tablet 0 midodrine (PROAMATINE) 5 mg tablet Take 1 tablet (5 mg total) by mouth 2 (two) times a day as needed (if systolic blood pressure less than 90mmHg) 30 tablet 0 multivit nhjzmncw-oznd-SD-calcium (THERA-M) 9 mg iron-400 mcg tablet Take 1 tablet by mouth daily nortriptyline (PAMELOR) 10 mg capsule Take 1 capsule (10 mg total) by mouth daily omeprazole (PriLOSEC) 20 mg capsule Take 1 capsule (20 mg total) by mouth daily pen needle, diabetic 32 gauge x 5/32 needle Use as directed 3 times a day. 100 each 0 potassium chloride ER 20 mEq CR tablet Take 1 tablet (20 mEq total) by mouth daily Xarelto 20 mg tablet Take 1 tablet (20 mg total) by mouth daily with dinner Allergies - following pharmacist reconciliation Sulfa (sulfonamide antibiotics) Ashley Wills, KaylaD, BCPS, BCCP Clinical [facility] - Cardiology/Transitions of Care [phone] 07/09/24 * Amina Martin, OT - 07/09/2024 11:25 AM CDT Occupational Therapy Occupational Therapy Evaluation Note NOTE: This is a summary note of the vaz components of the evaluation session. For full details, review chart for all flowsheets documented on by this occupational therapy clinician on this date. Vital signs are documented in vital signs flowsheet. For questions, please review the treatment team and contact the occupational therapist currently assigned to this patient. If an occupational therapist is not assigned to this patient, please call [phone]. 07/09/24 1125 General Chart Reviewed Yes Session Type Evaluation OT Received On 07/09/24 Safe Environment Arm band checked;Patient found sitting at edge of bed;Session completed bedside;Gait belt utilized for all out of bed mobility Subjective Agreeable to Therapy Subjective Comment Patient reports pain in her lower back when she attempts to stand on her own regarding sit to stand. Pt reports less pain when OT provided force production of mod assist for sit tostand. Family/Caregiver Present No Occupational Therapy-Patient Goal pt states she would like to return to modified independent with ADLs and moving around her home. Precautions Precautions Fall risk Precaution Comments ed pt on general safety with mobility Home Living Type of Home House Home Layout One level Home Access Stairs to enter without rails Entrance Stairs-Rails None Entrance Stairs-Number of Steps 2 Bathroom Shower/Tub Tub/shower unit Bathroom Toilet Standard Bathroom Equipment Grab bars in shower/tub;Shower chair (unclear if that is a shower chair vs tub transfer bench) Bathroom Accessibility Accessible via walker Home Mobility Equipment-Available Wheeled walker Home Mobility Equipment-Currently Using Wheeled walker Home ADL Equipment-Available Bee Raiser Home ADL Equipment-Currently Using Bee Raiser Prior Function Level of [place] Independent with ADLs;Independent functional transfers;Independent with ambulation;Needs assistance with homemaking (pt has assist prn from her sister who is her choreworker to help with sock or shoes and/or bathing, but sometimes pt does this on her own per pt report today.) Lives With Alone Receives Help From Family (2 sister: Dilia and Peg. one of them is her hired choreworker who comes daily.) Driving No Mode of Transportation Driven by others Vocational/Occupation On disability Fall within the last 6 months Yes Fall within the last 6 months comment maybe 1 Prior Function Comments sister gets groceries for her ADL ADLS (WDL) X Grooming Grooming: Where assessed Edge of bed Grooming: Level of assistance Moderate Assist (set up task, total for balance due to sit not stand) LE Dressing LE Dressing: Where assessed Sitting;Standing LE Dressing: Level of assistance Moderate Assist LE Dressing: Assistance with Requires assistive device for steadying;Supervision/safety;Increased time to complete;Don/doff R sock;Don/doff L sock;Balance;Safety Toilet Transfers Toilet Transfer From Bed Toilet Transfer Type To and from Toilet Transfer to Bariatric bedside commode Toilet Transfer Technique Stand pivot Toilet Transfer: Equipment Hand hold;Wheeled walker (hand hold for sit to stand then wheeled walker for for stand pivot) Toilet Transfers Moderate assistance Pain Assessment Pain Assessment 0-10 Pain Score 9 Pain Location Back (Lumbar) Pain Interventions RN Notified Activity Tolerance Activity Tolerance Comments timmy: moderate sit to stand and standing at bedside for 1 minute Vision-Basic Assessment Current Vision Wears glasses all the time Cognition Overall Cognitive Status Impaired Arousal/Alertness Alert Attention Span Appears intact;Controlled environment Memory Decreased short term memory Current communication Appears Intact Orientation Oriented to person;Oriented to time;Oriented to situation (pt thought she was at [facility]) Following Commands Follows one step commands with increased time Awareness of Errors Decreased awareness of errors Insight Decreased awareness of deficits Problem Solving Assistance required to identify errors made;Assistance required to generate solutions Compliance/Behavior Easy to engage Cognitive Tests Cognitive Tests Yes Short Blessed Test What year is it now? 0 What month is it now? 0 Repeat this name and address after me Angel Dawson [address] [place] [address] Without looking at the clock, tell me what time it is 3 Count aloud backwards from 20-1 4 Say the months of the year backwards in reverse order 4 Repeat the name and address I asked you to remember 8 Short Blessed Total Score 19 Short Blessed Comments pt scores impaired with this test, but please note pt has intellectual disability noted in her chart review for past medical hx, so this may not be a reflection of memory, but rather her existing intellectual disabilty. Coordination Fine Motor WFL Serial Opposition WFL Hand Preference Hand Preference Right Balance Tests Balance Tests Yes Tinetti Sitting Balance 1 Arises 0 Attempts to Arise 0 Immediate Standing Balance (First 5 Seconds) 1 Standing Balance 1 Nudged 1 Eyes Closed 0 Turned 360 Degrees: Steadiness 1 Turned 360 Degrees: Continuity of Steps 0 Sitting Down 1 Balance Score 6 Balance Balance Yes Static Sitting Balance Static Sitting-Balance Support No upper extremity supported;Feet supported Static Sitting-Sitting Surface Bed Static Sitting-Level of Assistance Distant supervision Dynamic Sitting Balance Dynamic Sitting-Balance Support No upper extremity supported Dynamic Sitting-Balance Forward lean;Reaching for objects Dynamic Sitting-Sitting Surface Bed Dynamic Sitting-Level of Assistance Contact guard Dynamic Sitting-Comments pt not comfortable or confident in this position when attempting to don socks and ends task Static Standing Balance Static Standing-Balance Support Bilateral upper extremity supported Static Standing-Standing Surface Floor Static Standing-Level of Assistance Minimum assistance Bed Mobility Bed Mobility Yes Bed Mobility 1 Bed Mobility From 1 Supine Bed Mobility Type 1 To Bed Mobility to 1 Edge of bed Level of Assistance 1 Moderate Assist Transfers Transfer Yes Transfer 1 Transfer From 1 Bed;Sit Transfer Type 1 To and from Transfer to 1 Stand Technique 1 Sit to stand;Stand to sit Transfer Device 1 Hand held assist Transfer Level of Assistance 1 Moderate Assist RUE Assessment RUE Assessment X RUE Comments pt lacks full overhead shoulder motion above greater than 120 degrees of flexion. pt has weakness bilaterally about 3+/5 LUE Assessment LUE Assessment X LUE Comments pt lacks full overhead shoulder motion above greater than 120 degrees of flexion. pt has weakness bilaterally about 3+/5 Daily Activity - 6 Clicks Putting on and taking off regular lower body clothing 2 Bathing 2 Toileting 2 Putting on and taking off upper body clothing 3 Personal Grooming 2 Eating Meals 4 Total Score (range 6-24) 15 Score Interpretation 34.69 Safe Environment End of Therapy Session Safe Environment End of Therapy Session Patient left sitting at edge of bed;Bed alarm in place and activated;RN notified;Call light within reach;Overbed table within reach;Bed in lowest position withwheels locked;Bed rails up per protocol Assessment Problem List Decreased upper extremity range of motion;Decreased upper extremity strength;Decreasedcognition;Decreased endurance;Decreased balance;Decreased functional mobility;Decreased ADL independence;Decreased IADL independence Barriers to Discharge Current Mobility Status;Current ADL Status;Home environment challenged;Decreased caregiver support;Cognition Barrier Comments fall risk Plan Plan Plan of care initiated;If this is the last note, consider this the discharge summary Recommendation/Plan OT Recommendation Jail Facility Patient at high risk for Falls;Readmission;Injury due to decreased ability to care for self;Injury due to reduced functional status;Injury due to impaired cognition;Injury due to balance deficits;Injury at home as patient has not returned to prior level of function Recommend SNF due to Risk of injury at home;Skilled therapy needed to address care for self in the home;Unable to safely care for self in the home;Skilled therapy needed to address functional deficits;Skilled therapy needed for patient to return to prior level of independence OT Frequency during current admission 2-3x/wk OT - Next Appointment 07/11/24 OT Evaluation Complete Yes Time Calculation Start Time 1125 Stop Time 1209 Time Calculation (min) 44 min Multi-Disciplinary Problems (from Occupational Therapy) Active Problems Problem: Dressings Lower Extremities Start Date: 07/09/24 Goal Start Date Expected End Date End Date STG - Patient to complete lower body dressing with min assist using AE prn 07/09/24 07/23/24 -- Problem: Grooming Start Date: 07/09/24 Goal Start Date Expected End Date End Date STG - Patient will complete grooming standing at sink with min assist using wheeled walker 07/09/2410/14/24 -- Problem: Transfers Start Date: 07/09/24 Goal Start Date Expected End Date End Date STG - Patient will perform toilet transfer bed to bathroom toilet (raised prn) with min assist using wheeled walker 07/09/24 07/23/24 -- Problem: OT Misc Start Date: 07/09/24 Goal Start Date Expected End Date End Date OT LTG - Patient will be modified independent with ADLs and in room functional mobility. 07/09/24 08/06/24 -- * Keyana Mcleod, PT - 07/08/2024 1:38 PM CDT Physical Therapy Evaluation Note NOTE: This is a summary note of the vaz components of the evaluation session. For full details, review chart for all flowsheets documented on by this physical therapy clinician on this date. Vital signs are documented in the vital signs flowsheet. For questions, please review the treatment team and contact the PT or TOOL AND DIE MACHINIST currently assigned to this patient. If a physical therapy clinician is not assigned to this patient, please call [phone]. 07/08/24 1093 General Chart Reviewed Yes Session Type Evaluation PT Received On 07/08/24 Safe Environment Arm band checked;Session completed bedside;Gait belt utilized for all out of bed mobility;Patient found sitting in chair Subjective Agreeable to Therapy Subjective Comment My back hurts Family/Caregiver Present No (sister on the phone at beginning of session) Physical Therapy-Patient Goal walk Precautions Precautions Fall risk Weight Bearing Restrictions No Home Living Type of Home House Home Layout One level Home Access Stairs to enter without rails Entrance Stairs-Rails None Entrance Stairs-Number of Steps 2 Home Mobility Equipment-Available Wheeled walker;Other (Comment) (3 wheeled walker) Home Mobility Equipment-Currently Using Wheeled walker Prior Function Level of Sand[place] Independent functional transfers;Independent with ambulation Lives With Alone Receives Help From Family (one sister is caregiver so able to provide FT assist, other sister also able to assist prn) Fall within the last 6 months Yes Fall within the last 6 months comment patient's sister reports fall at rehab, but unable to recall when exactly fall occurred or what occurred with fall Activity Tolerance Activity Tolerance Comments timmy: moderate Pain Assessment Pain Assessment 0-10 Pain Score 10 - Worst possible pain Pain Location Back (Lumbar) Pain Orientation Generalized Pain Interventions Repositioned;RN Notified ([facility], notified; pt recieved pain meds ~1 hour before session) Cognition Arousal/Alertness Alert Orientation Oriented to person Following Commands Follows one step commands with increased time Sensation Light Touch WFL (BLE) Numbness/Tingling No Sensation Comments skin intact BLE, mild non-pitting edema present in BLE Balance Tests Balance Tests Yes Feliz Balance Scale 1. Sitting to Standing 1 2. Standing Unsupported 0 3. Sitting with Back Unsupported but Feet Supported on Floor or on a Stool 3 4. Standing to Sitting 0 5. Transfers 1 6. Standing Unsupported with Eyes Closed 0 7. Standing Unsupported with Feet Together 0 8. Reach Forward with Outstretched Arm While Standing 0 9. Associate Professor Of Library Science Object from Floor from a Standing Position 0 10. Turning to Look Behind Over Left and Right Shoulders While Standing 0 11. Turn [address] Altern[address] Foot on Step or Stool While Standing Unsupported 0 13. Standing Unsupported One Foot in Front 0 14. Standing on One Leg 0 Feliz Balance Score 5 Balance Balance Yes Static Sitting Balance Static Sitting-Balance Support Bilateral upper extremity supported;Feet supported Static Sitting-Sitting Surface Chair Static Sitting-Level of Assistance Distant supervision Static Sitting-Comment/# of Minutes for safety Static Standing Balance Static Standing-Balance Support Bilateral upper extremity supported (WW) Static Standing-Standing Surface Floor Static Standing-Level of Assistance Contact guard Static Standing-Comment/# of Minutes for steadying assist Bed Mobility Bed Mobility Yes Bed Mobility 1 Bed Mobility From 1 Edge of bed Bed Mobility Type 1 To Bed Mobility to 1 Supine Level of Assistance 1 Minimum Assist Bed Mobility Comments 1 assist for BLE elevation Transfers Transfer Yes Transfer 1 Transfer From 1 Sit Transfer Type 1 To and from Transfer to 1 Stand Technique 1 Sit to stand;Stand to sit Transfer Device 1 Wheeled walker Transfer Level of Assistance 1 Minimum Assist Trials/Comments 1 assist for force production and balance Ambulation Ambulation Yes Ambulation 1 Distance (ft) 1 88 Surface 1 Level tile Device 1 Wheeled walker Assistance 1 Minimum Assist Gait: Requires assist with 1 Maintaining balance Gait: Requires verbal cues to 1 Utilize appropriate gait sequencing;Pace activity Gait Deviations 1 Base of support - decreased;Diamante - decreased;Posture - flexed;Step length - decreased Ambulation Comments 1 assist for balance and safety RLE Assessment RLE Assessment WFL RLE Comments 3+/5 grossly LLE Assessment LLE Assessment WFL LLE Comments 3+/5 grossly Other Comments Other PT Comments Educated patient on importance of daily education but need for staff assist due to fall risk. Performed marches, LAQ, and AP x10 B while sitting on EOB and educated patient on performing in order to improve strength. Basic Mobility - 6 Click How much difficulty does the patient have: Turning over in bed 3 How much difficulty does the patient currently have: Sitting down and standing up from a chair witharms? 3 How much difficulty does the patient have: Moving from lying on back to sitting on the side of the bed? 3 How much difficulty does the patient have: Moving to and from a bed to a chair including wheelchair? 3 How much help does the patient currently need: Walk in hospital room? 3 How much help from another person does the patient currently need: Climbing 3-5 steps with a railing? 2 Total 6 Click Score (range 6-24) 17 Score Interpretation 39.67 Safe Environment End of Therapy Session Safe Environment End of Therapy Session Call light within reach;Overbed table within reach;Patient left supine in bed;RN notified;Bed in lowest position with wheels locked Assessment Prognosis Good Problem List Gait deviations;Decreased endurance;Impaired balance;Decreased mobility;Decreased strength Problem List Comments PT Diagnosis: back pain, found to have staph aureus and CT c/f OM results in above listed activity deficits and impairments which prevent full participation in home and community mobility Plan Plan If this is the last note, consider this the discharge summary;Plan of care initiated Recommendation/Plan PT Recommendation/Plan Jail Facility Patient at high risk for Falls;Readmission;Injury due to reduced functional status;Injury due to balance deficits;Injury at home as patient has not returned to prior level of function Recommend SNF due to Risk of injury at home;Unable to safely care for self in the home;Skilled therapy needed to address functional deficits PT Frequency during current admission 3-5x/wk Treatment/Interventions during current admission Balance Training;Bed mobility;Endurance training;Functional transfer training;Gait training;Neuromuscular re-education;Stair training;Strengthening;Therapeutic activity;Therapeutic exercise;Transfer training PT - Next Appointment 07/10/24 PT - OK to Discharge No PT Evaluation Complete Yes Time Calculation Start Time 1338 Stop Time 1412 Time Calculation (min) 34 min Multi-Disciplinary Problems (from Physical Therapy) Active Problems Problem: Mobility Start Date: 07/08/24 Goal Start Date Expected End Date End Date LTG - Patient will ambulate community distance 07/08/24 09/09/24 -- Goal Details: With LRAD and mod I Goal Start Date Expected End Date End Date STG - Patient will ambulate 07/08/24 07/15/24 -- Goal Details: 150' with LRAD, DS Goal Start Date Expected End Date End Date STG - Patient will ascend and descend 2 stairs with the following level of assist: 07/08/24 07/15/24 -- Goal Details: SBA and no handrail Problem: Transfers Start Date: 07/08/24 Goal Start Date Expected End Date End Date STG - Patient to transfer to and from sit to supine 07/08/24 07/15/24 -- Goal Details: DS Goal Start Date Expected End Date End Date STG - Patient will transfer sit to and from stand 07/08/24 07/15/24 -- Goal Details: DS Problem: PT Misc Start Date: 07/08/24 Goal Start Date Expected End Date End Date PT STG - Patient and caregivers will participate in and demonstrate understanding of therapeutic exercise and safe mobility strategies to improve independence with functional mobility. 07/08/24 07/15/24 -- * Valentina Brown MD - 07/08/2024 9:43 AM CDT Medicine Daily Progress Note Patient: Lei Rodriguez : 1960 (63 y.o.) Date of Admission: 07/07/2024 Date of Service: 07/08/24 SUBJECTIVE Interval Events: - ICD interrogated yesterday demonstrating 5x shock on 06/10/24, not pacer dependent - ID, CTS consulted yesterday, formal EP recommendations pending - TTE yesterday demonstrating echodensity on V lead just proximal to TV, cannot rule out TV involvement Plan for Today: - Continue to follow cultures, follow up EP recommendations - Continue cefazolin antibiotics - GT ordered. Likely cannot obtain tomorrow based on schedule discussion last week, but will make NPO at midnight in case able to add on case for tomorrow OBJECTIVE Vitals Most Recent: Vitals: 07/08/24 0809 BP: 105/61 Pulse: 87 Resp: 20 Temp: 36.6 ??C (97.9 ??F) SpO2: 95% 24 Hour Min/Max: Temp Min: 36.6 ??C (97.9 ??F) Max: 36.8 ??C (98.2 ??F) Pulse Min: 86 Max: 96 BP Min: 94/58 Max: 113/74 Resp Min: 19 Max: 20 SpO2 Min: 95 % Max: 98 % Intake/Output Intake/Output Summary (Last 24 hours) at 07/08/2024 0943 Last data filed at 07/08/2024 0840 Gross per 24 hour Intake 510 ml Output 800 ml Net -290 ml Current Medications Scheduled Meds: Scheduled Medications Medication Dose Route Frequency ceFAZolin (ANCEF) 2,000 mg/20 mL in sterile water (premix) 2,000 mg 2,000 mg intravenous Q8H [facility] escitalopram (LEXAPRO) tablet 10 mg 10 mg oral Daily furosemide (LASIX) tablet 40 mg 40 mg oral Daily insulin glargine (LANTUS, SEMGLEE) 100 unit/mL injection 18 Units 18 Units subcutaneous QAM insulin lispro (HumaLOG, ADMELOG) 100 unit/mL injection 0-4 Units 0-4 Units subcutaneous Nightly insulin lispro (HumaLOG, ADMELOG) 100 unit/mL injection 0-5 Units 0-5 Units subcutaneous TID with meals insulin lispro (HumaLOG, ADMELOG) 100 unit/mL injection 6 Units 6 Units subcutaneous TID with meals levothyroxine (SYNTHROID) tablet 75 mcg 75 mcg oral Daily - 0600 magnesium oxide (MAG-OX) tablet 400 mg 400 mg oral Daily metoprolol XL (TOPROL-XL) extended release tablet 50 mg 50 mg oral Daily mirabegron ER (MYRBETRIQ) extended release tablet 25 mg 25 mg oral Daily nortriptyline (PAMELOR) capsule 10 mg 10 mg oral Daily pantoprazole DR (PROTONIX) extended release tablet 20 mg 20 mg oral Daily sacubitriL-valsartan (ENTRESTO) 24-26 mg tablet 1 tablet 1 tablet oral BID senna-docusate (PERICOLACE) 8.6-50 mg per tablet 1 tablet 1 tablet oral BID sodium chloride 0.9% flush 0.5-20 mL 0.5-20 mL intra-catheter Q8H [facility] Continuous Meds: Current Facility-Administered Medications Medication Dose Route Frequency Last Admin heparin 0-33 Units/kg/hr intravenous Titrated 16 Units/kg/hr at 07/08/24 0639 PRN Meds: PRN Medications Medication Dose Route Frequency Last Admin acetaminophen (TYLENOL) tablet 650 mg 650 mg oral Q4H PRN 650 mg at 07/07/241816 Carrier Fluids for Secondary Infusion - 0.9% Sodium Chloride 30 mL intravenous PRN cyclobenzaprine (FLEXERIL) tablet 5 mg 5 mg oral TID PRN 5 mg at 07/07/241817 dextrose gel in packet 15 g 15 g oral Q15 Min PRN Or dextrose (D10W) 10% bolus 250 mL 250 mL intravenous Q15 Min PRN glucagon injection 1 mg 1 mg intramuscular Q30 Min PRN heparin 1,000 unit/mL injection 4,500 Units 40 Units/kg intravenous Q6H PRN 4,500 Units at Or heparin 1,000 unit/mL injection 9,100 Units 80 Units/kg intravenous Q6H PRN ondansetron ODT (ZOFRAN-ODT) disintegrating tablet 4 mg 4 mg oral Q6H PRN Or ondansetron (ZOFRAN) injection 4 mg 4 mg intravenous Q6H PRN polyethylene glycol (MIRALAX) packet 17 g 17 g oral Daily PRN ramelteon (ROZEREM) tablet 8 mg 8 mg oral Nightly PRN sodium chloride 0.9% flush 0.5-20 mL 0.5-20 mL intra-catheter PRN Physical Exam Gen: No apparent distress. Resting comfortably. Cooperative. HEENT: No conjunctival pallor or injection, no icterus. No nasal discharge. Moist mucus membranes. Cardiac: Irregularly irregular rate and rhythm, normal S1/S2. No murmurs. No JVD. No S3/S4. No LE edema. Peripheral pulses 2+ bilaterally. Pulm: Clear to auscultation bilaterally. No wheezing or rhonchi. Abdomen: Soft. Bowel sounds present. No tenderness or distension. Extremity: Warm. No edema. No clubbing or cyanosis. Neuro: Alert and orientedx3. Sensation intact throughout to light touch. Unable to respond to complex questions, forgets information between conversations. Not consentable Skin: No lesions, erythema, or skin changes. Psych: Mood appropriate. Appropriate insight. Laboratory Results Recent Results (from the past 24 hour(s)) POCT glucose Collection Time: 07/07/24 12:33 PM Result Value Ref Range Glucose, POC 272 (H) 70 - 199 mg/dL aPTT Collection Time: 07/07/24 12:47 PM Result Value Ref Range aPTT 108 (H) 28 - 38 sec Transthoracic Echo (TTE) Complete W Doppler/CF Collection Time: 07/07/24 2:23 PM Result Value Ref Range LV EF 30 % POCT glucose Collection Time: 07/07/24 4:49 PM Result Value Ref Range Glucose, POC 191 70 - 199 mg/dL POCT glucose Collection Time: 07/07/24 9:19 PM Result Value Ref Range Glucose, POC 211 (H) 70 - 199 mg/dL CBC without differential Collection Time: 07/07/24 9:34 PM Result Value Ref Range WBC 6.1 3.8 - 9.9 K/cumm Hgb 9.9 (L) 11.9 - 15.5 g/dL Hct 30.4 (L) 35.6 - 45.5 % Plt 310 150 - 400 K/cumm MPV 10.4 9.1 - 12.3 fL RBC 3.05 (L) 3.90 - 5.20 M/cumm MCV 99.7 (H) 81.3 - 96.4 fL MCH 32.5 27.1 - 33.3 pg MCHC 32.6 32.3 - 35.7 g/dL RDW CV 14.1 11.1 - 14.9 % RDW SD 51.0 (H) 35.7 - 48.1 fL NRBC abs 0.00 0.00 - 0.01 K/cumm Comprehensive metabolic panel Collection Time: 07/07/24 9:34 PM Result Value Ref Range Sodium 136 135 - 145 mmol/L Potassium, pl 4.2 3.3 - 4.9 mmol/L Chloride 96 (L) 97 - 110 mmol/L CO2 29 22 - 32 mmol/L Anion gap 11 2 - 15 mmol/L BUN 17 6 - 25 mg/dL Creatinine 0.96 0.60 - 1.10 mg/dL Glucose 186 70 - 199 mg/dL Calcium 8.8 8.5 - 10.3 mg/dL Bilirubin, total 0.3 0.1 - 1.2 mg/dL Protein, pl 6.7 6.5 - 8.5 g/dL Albumin 3.0 (L) 3.5 - 5.0 g/dL Alk phos 174 (H) 40 - 130 Units/L ALT 15 7 - 45 Units/L AST 42 10 - 45 Units/L aPTT Collection Time: 07/07/24 9:34 PM Result Value Ref Range aPTT 60 (H) 28 - 38 sec eGFR Collection Time: 07/07/24 9:34 PM Result Value Ref Range eGFR 67 >=60 mL/min/1.73 m2 aPTT Collection Time: 07/08/24 4:53 AM Result Value Ref Range aPTT 48 (H) 28 - 38 sec POCT glucose Collection Time: 07/08/24 7:40 AM Result Value Ref Range Glucose, POC 170 70 - 199 mg/dL Imaging Results Transthoracic Echo (TTE) Complete W Doppler/CF Patient name: Lei Rodriguez Date of test: 07/07/2024 Type of test: TTE w/Doppler Hospital #: [id number] Date of : 1960 (F) Statistics Teacher: Linda aCputo RDCS Referring Physician: ELVIRA COOPER MD Contrast Agent: 0.45 ml Definity Administered, (1.05 ml wasted). Contrast Administered by: Hailee Burroughs RN Supervised/Interpreted by: Nikko Greenwood MD. Diagnosis: Location: [facility] Reason for test: c/f vegetation on pacer leads MV Structure: Normal, MV Motion: Normal, Mitral Annulus: mildly calcified AV Structure: tricuspid and is Normal, AV Motion: Normal Aotic root: Normal, TM: Normal, PV: Normal Valvular Vegetations: cannot r/o tricuspid, Mass/Thrombi: none seen RA: mildly increased Measurements: M-Mode Normal Aotic Root: <3.8 LA: <3.8 RV: <2.8 LV(ED): <5.7 LV(ES): Variable 2D Linear Normal Aotic Root: 3.1 cm <3.6 Ao Indexed: 1.4 cm/M2 <2.0 LA: <3.8 RV: 3.7 cm <4.2 LV(ED): 5.7 cm <5.3 LV(ES): 4.4 cm <3.5 2D Vol. Normal Indexed Indexed Normal RA: 88.0 ml 40.5 ml/M2 9-33 LA: 85.0 ml 39.1 ml/M2 16-34 RV: <11.6 LV(ED): 132.0 ml 46-106 60.7 ml/M2 <62 LV(ES): 93.0 ml 14-42 42.8 ml/M2 <25 3D Vol. Indexed Normal LV(ED): <62 LV(ES): <24 LV EF: 30 % (Mod. Marsh's) (Normal: >=54%) LV Septum: 0.7 cm (Normal: <0.9 cm) Wall Motion Scoring (1=Normal 2=Hypo 3=Akinetic 4=Dyskin./Aneurysm 0=Not visualized) Parasternal Long Okar[place]:MAS=2 BAS=2 MIL=2 HECTOR=2 Parasternal Short [place]kar[place]:MAS=2 MIS=2 AL=2 MIL=2 MAL=2 MA=2 Apical 4 Chambers:=2 MIS=2 BIS=2 BAL=2 MAL=2 AL=2 AC=2 Apical 2 Chambers:AI=2 AL=2 BI=2 BA=2 MA=2 AA=2 AC=2 LV Global Longitudinal Strain: RV Global Longitudinal Strain: LV Function: Moderate Global reduction in LV Ejection Fraction (EF=30-40%); EF via modified Marsh's. RV Function: Normal Septal Motion: Normal Pericardial Effusion: small Atrial Septum: Normal DOPPLER/COLOR FLOW DOPPLER RESULTS: Diastolic Function: indeterminate Tricuspid Valve: mild TV regurgitation Pulmonic Valve: mild LA AV Regurgitation: Mild AR AV Stenosis: no AV Area: cm2 AV Pressure Gradient (mmHg): Mean: 0, Peak:0 MV Regurgitation: Mild MR MV Stenosis: no MS MV Area: cm2 MV Pressure Gradient (mmHg): Mean: 0 MV ERO: cm Regurg. Vol.: ml/beat Regurg. Frac.: % PA Pressure: 28 mmHg DOPPLER/COLOR FOLOW DOPPLER COMMENTS: Mild AR, Mild MR, no , no MS, mild TV regurgitation, mild LA. Diastolic function: indeterminate CONTRAST: 0.45 ml Definity Administered, (1.05 ml wasted). SUMMARY: Mildly dilated LV, moderate to severe LV systolic dysfunction, EF=30%. Normal RV size and function. Mild biatrial enlargement. Normal IVC. Normal size aortic root. Mild MR, AR, TR. Small (9x7mm), modile echodensity attached to the V lead at the atrial level just proximal to TV, consider thrombus vs. vegetation. Cannot exclude involvement of TV. Consider GT to further evaluate. Confirmed on 07/07/2024 - 15:43:01 by Nikko Greenwood MD. By signing this report, the attending arboreal scientist certifies that he or she has personally supervised and interpreted the echocardiogram and has reviewed and or edited and agrees with the written comments contained within the report. Neuro CT Outside Consult Narrative: EXAMINATION: RADIOLOGY CONSULTATION ON OUTSIDE IMAGING STUDY STUDY INITIALLY PERFORMED: 06/10/2024 and 07/02/2024 at [facility]. TYPE OF STUDY: Multiple CT images of the head, cervical and thoracic spine without and with contrast are provided at the time of this interpretation. CONTRAST ROUTE: Intravenous The protocol was adequate to address the clinical question. The outside final report was not available at the time of this second opinion interpretation. TYPE OF CONSULTATION: Consult on outside imaging study with images submitted through Outside Image Sharing Service DATE OF CONSULTATION: 07/07/2024 10:13 AM HISTORY: Osteomyelitis COMPARISON: Outside CT cervical spine dated 06/10/2024. FINDINGS: Please refer to separate report for incidental findings. Head CT: Moderate to severe microvascular ischemic disease without prior imaging to assess stability. Severe intracranial atherosclerotic disease. No large acute territory infarct and no acute intracranial hemorrhage. No herniation or hydrocephalus. CT cervical spine: Multilevel boyc-cv-unzdrcqo degenerative change without high-grade spinal canal or neural foraminal narrowing. No CT evidence of osteomyelitis in the cervical spine. Thoracic spine: Multilevel djbg-ij-zrcnbsxa degenerative change without high-grade spinal canal or neural foraminal narrowing. No CT evidence of osteomyelitis in the cervical spine. Mediastinal adenopathy, cardiomegaly, pericardial effusion and lung nodules are better evaluated on concurrent CT chest, abdomen and pelvis. Lumbar spine: Multilevel ubwf-mh-rmfjagsd degenerative change without high-grade spinal canal or neural foraminal narrowing. No CT evidence of osteomyelitis in the cervical spine. Impression: Please refer to separate report for incidental findings. Head CT: No large acute territory infarct and no acute intracranial hemorrhage. Moderate to severe microvascular ischemic disease without prior imaging to assess stability. CT total spine: No CT evidence of osteomyelitis however this does not exclude the diagnosis; an MR spine is recommended for further evaluation. Mediastinal adenopathy, cardiomegaly, pericardial effusion and lung nodules are better evaluated on concurrent CT chest, abdomen and pelvis. The findings, conclusions and recommendations within this report do not replace the initial findings, conclusions and recommendations made at the facility where the study was performed based upon the imaging and clinical condition at that time. Comparison with the prior report and clinical history is necessary. The provided images may or may not represent the nenana source data set and thus may contain changes that may lower the accuracy of this second-opinion interpretation. Electronically signed by: Carlota Murguia M.D. Neuro CT Outside Consult Narrative: EXAMINATION: RADIOLOGY CONSULTATION ON OUTSIDE IMAGING STUDY STUDY INITIALLY PERFORMED: 06/10/2024 and 07/02/2024 at [facility]. TYPE OF STUDY: Multiple CT images of the head, cervical and thoracic spine without and with contrast are provided at the time of this interpretation. CONTRAST ROUTE: Intravenous The protocol was adequate to address the clinical question. The outside final report was not available at the time of this second opinion interpretation. TYPE OF CONSULTATION: Consult on outside imaging study with images submitted through Outside Image Sharing Service DATE OF CONSULTATION: 07/07/2024 10:13 AM HISTORY: Osteomyelitis COMPARISON: Outside CT cervical spine dated 06/10/2024. FINDINGS: Please refer to separate report for incidental findings. Head CT: Moderate to severe microvascular ischemic disease without prior imaging to assess stability. Severe intracranial atherosclerotic disease. No large acute territory infarct and no acute intracranial hemorrhage. No herniation or hydrocephalus. CT cervical spine: Multilevel ycqv-ww-xylaxcfn degenerative change without high-grade spinal canal or neural foraminal narrowing. No CT evidence of osteomyelitis in the cervical spine. Thoracic spine: Multilevel vlrf-uo-ihkhkmgf degenerative change without high-grade spinal canal or neural foraminal narrowing. No CT evidence of osteomyelitis in the cervical spine. Mediastinal adenopathy, cardiomegaly, pericardial effusion and lung nodules are better evaluated on concurrent CT chest, abdomen and pelvis. Lumbar spine: Multilevel iuvu-ge-tjuizwyh degenerative change without high-grade spinal canal or neural foraminal narrowing. No CT evidence of osteomyelitis in the cervical spine. Impression: Please refer to separate report for incidental findings. Head CT: No large acute territory infarct and no acute intracranial hemorrhage. Moderate to severe microvascular ischemic disease without prior imaging to assess stability. CT total spine: No CT evidence of osteomyelitis however this does not exclude the diagnosis; an MR spine is recommended for further evaluation. Mediastinal adenopathy, cardiomegaly, pericardial effusion and lung nodules are better evaluated on concurrent CT chest, abdomen and pelvis. The findings, conclusions and recommendations within this report do not replace the initial findings, conclusions and recommendations made at the facility where the study was performed based upon the imaging and clinical condition at that time. Comparison with the prior report and clinical history is necessary. The provided images may or may not represent the nenana source data set and thus may contain changes that may lower the accuracy of this second-opinion interpretation. Electronically signed by: Carlota Murguia M.D. Neuro CT Outside Consult Narrative: EXAMINATION: RADIOLOGY CONSULTATION ON OUTSIDE IMAGING STUDY STUDY INITIALLY PERFORMED: 06/10/2024 and 07/02/2024 at [facility]. TYPE OF STUDY: Multiple CT images of the head, cervical and thoracic spine without and with contrast are provided at the time of this interpretation. CONTRAST ROUTE: Intravenous The protocol was adequate to address the clinical question. The outside final report was not available at the time of this second opinion interpretation. TYPE OF CONSULTATION: Consult on outside imaging study with images submitted through Outside Image Sharing Service DATE OF CONSULTATION: 07/07/2024 10:13 AM HISTORY: Osteomyelitis COMPARISON: Outside CT cervical spine dated 06/10/2024. FINDINGS: Please refer to separate report for incidental findings. Head CT: Moderate to severe microvascular ischemic disease without prior imaging to assess stability. Severe intracranial atherosclerotic disease. No large acute territory infarct and no acute intracranial hemorrhage. No herniation or hydrocephalus. CT cervical spine: Multilevel xndt-bg-afahvczp degenerative change without high-grade spinal canal or neural foraminal narrowing. No CT evidence of osteomyelitis in the cervical spine. Thoracic spine: Multilevel qdxw-ad-wirdfhez degenerative change without high-grade spinal canal or neural foraminal narrowing. No CT evidence of osteomyelitis in the cervical spine. Mediastinal adenopathy, cardiomegaly, pericardial effusion and lung nodules are better evaluated on concurrent CT chest, abdomen and pelvis. Lumbar spine: Multilevel odew-ii-zqvqitlf degenerative change without high-grade spinal canal or neural foraminal narrowing. No CT evidence of osteomyelitis in the cervical spine. Impression: Please refer to separate report for incidental findings. Head CT: No large acute territory infarct and no acute intracranial hemorrhage. Moderate to severe microvascular ischemic disease without prior imaging to assess stability. CT total spine: No CT evidence of osteomyelitis however this does not exclude the diagnosis; an MR spine is recommended for further evaluation. Mediastinal adenopathy, cardiomegaly, pericardial effusion and lung nodules are better evaluated on concurrent CT chest, abdomen and pelvis. The findings, conclusions and recommendations within this report do not replace the initial findings, conclusions and recommendations made at the facility where the study was performed based upon the imaging and clinical condition at that time. Comparison with the prior report and clinical history is necessary. The provided images may or may not represent the nenana source data set and thus may contain changes that may lower the accuracy of this second-opinion interpretation. Electronically signed by: Carlota Murguia M.D. Neuro CT Outside Consult Narrative: EXAMINATION: RADIOLOGY CONSULTATION ON OUTSIDE IMAGING STUDY STUDY INITIALLY PERFORMED: 06/10/2024 and 07/02/2024 at [facility]. TYPE OF STUDY: Multiple CT images of the head, cervical and thoracic spine without and with contrast are provided at the time of this interpretation. CONTRAST ROUTE: Intravenous The protocol was adequate to address the clinical question. The outside final report was not available at the time of this second opinion interpretation. TYPE OF CONSULTATION: Consult on outside imaging study with images submitted through Outside Image Sharing Service DATE OF CONSULTATION: 07/07/2024 10:13 AM HISTORY: Osteomyelitis COMPARISON: Outside CT cervical spine dated 06/10/2024. FINDINGS: Please refer to separate report for incidental findings. Head CT: Moderate to severe microvascular ischemic disease without prior imaging to assess stability. Severe intracranial atherosclerotic disease. No large acute territory infarct and no acute intracranial hemorrhage. No herniation or hydrocephalus. CT cervical spine: Multilevel eyph-ma-gnionuvk degenerative change without high-grade spinal canal or neural foraminal narrowing. No CT evidence of osteomyelitis in the cervical spine. Thoracic spine: Multilevel mtnn-bw-oncrnzkk degenerative change without high-grade spinal canal or neural foraminal narrowing. No CT evidence of osteomyelitis in the cervical spine. Mediastinal adenopathy, cardiomegaly, pericardial effusion and lung nodules are better evaluated on concurrent CT chest, abdomen and pelvis. Lumbar spine: Multilevel agra-nn-sdaswcjb degenerative change without high-grade spinal canal or neural foraminal narrowing. No CT evidence of osteomyelitis in the cervical spine. Impression: Please refer to separate report for incidental findings. Head CT: No large acute territory infarct and no acute intracranial hemorrhage. Moderate to severe microvascular ischemic disease without prior imaging to assess stability. CT total spine: No CT evidence of osteomyelitis however this does not exclude the diagnosis; an MR spine is recommended for further evaluation. Mediastinal adenopathy, cardiomegaly, pericardial effusion and lung nodules are better evaluated on concurrent CT chest, abdomen and pelvis. The findings, conclusions and recommendations within this report do not replace the initial findings, conclusions and recommendations made at the facility where the study was performed based upon the imaging and clinical condition at that time. Comparison with the prior report and clinical history is necessary. The provided images may or may not represent the nenana source data set and thus may contain changes that may lower the accuracy of this second-opinion interpretation. Electronically signed by: Carlota Murguia M.D. CT Body Outside Consult Narrative: EXAMINATION: RADIOLOGY CONSULTATION ON OUTSIDE IMAGING STUDY STUDY INITIALLY PERFORMED: 06/28/2024 and 07/06/[address] [facility]. TYPE OF STUDY: Multiple CT images of the chest, abdomen, and pelvis without intravenous contrast are provided at the time of this interpretation. CONTRAST ROUTE: No contrast was administered. The protocol was adequate to address the clinical question. The outside final report was available at the time of this second opinion interpretation. TYPE OF CONSULTATION: Consult on outside imaging study with images submitted through Outside Image Sharing Service DATE OF CONSULTATION: 07/07/2024 8:31 AM HISTORY: Back pain with history of bacteremia, concern for discitis osteomyelitis COMPARISON: Thoracic and lumbar spine CT dated 07/02/2024, CT abdomen pelvis 06/26/2024, CT chest 05/30/2024 FINDINGS: Unchanged wire in the right lower lobe pulmonary artery. There are multiple pulmonary nodules that have developed since 05/30/2024, including a 6 mm nodule in the right upper lobe on series 4 image 29, a 13 mm nodule in the right middle lobe on series 4 image 44, and an 11 mm nodule in the left lower lobe on series 4 image 54. No pleural effusion or pneumothorax. No focal consolidation. There is moderate cardiomegaly with pacemaker defibrillator leads terminating in the right atrium and right ventricle. Small pericardial effusion. There are multiple subcentimeter mediastinal lymph nodes are likely reactive, including a 13 mm pretracheal lymph node on series 3 image 35. Normal noncontrast appearance of the liver. Gallbladder is surgically absent. Pancreas, spleen, and adrenal glands are normal. Normal appearance of both kidneys with no hydronephrosis. Ureters are nondilated. Urinary bladder contains gas, possibly related to catheterization. Uterus is normal in size. No adnexal mass. Colonic diverticulosis is noted without evidence of diverticulitis. The appendix is not definitely seen. Small bowel and stomach are normal. No mesenteric, retroperitoneal, pelvic, or inguinal lymphadenopathy. No intra-abdominal free air or free fluid. Mild calcified atherosclerotic disease in the abdominal aorta. No suspicious osseous lesion. Impression: 1. New bilateral pulmonary nodules which have developed since 05/30/2024 and in the setting of bacteremia may represent septic emboli. 2. No acute process in the abdomen or pelvis or CT explanation for back pain The findings, conclusions and recommendations within this report do not replace the initial findings, conclusions and recommendations made at the facility where the study was performed based upon the imaging and clinical condition at that time. Comparison with the prior report and clinical history is necessary. The provided images may or may not represent the nenana source data set and thus may contain changes that may lower the accuracy of this second-opinion interpretation. Electronically signed by: Geo Patel MD, PHD CT Body Outside Consult Narrative: EXAMINATION: RADIOLOGY CONSULTATION ON OUTSIDE IMAGING STUDY STUDY INITIALLY PERFORMED: 06/28/2024 and 07/06/[address] [facility]. TYPE OF STUDY: Multiple CT images of the chest, abdomen, and pelvis without intravenous contrast are provided at the time of this interpretation. CONTRAST ROUTE: No contrast was administered. The protocol was adequate to address the clinical question. The outside final report was available at the time of this second opinion interpretation. TYPE OF CONSULTATION: Consult on outside imaging study with images submitted through Outside Image Sharing Service DATE OF CONSULTATION: 07/07/2024 8:31 AM HISTORY: Back pain with history of bacteremia, concern for discitis osteomyelitis COMPARISON: Thoracic and lumbar spine CT dated 07/02/2024, CT abdomen pelvis 06/26/2024, CT chest 05/30/2024 FINDINGS: Unchanged wire in the right lower lobe pulmonary artery. There are multiple pulmonary nodules that have developed since 05/30/2024, including a 6 mm nodule in the right upper lobe on series 4 image 29, a 13 mm nodule in the right middle lobe on series 4 image 44, and an 11 mm nodule in the left lower lobe on series 4 image 54. No pleural effusion or pneumothorax. No focal consolidation. There is moderate cardiomegaly with pacemaker defibrillator leads terminating in the right atrium and right ventricle. Small pericardial effusion. There are multiple subcentimeter mediastinal lymph nodes are likely reactive, including a 13 mm pretracheal lymph node on series 3 image 35. Normal noncontrast appearance of the liver. Gallbladder is surgically absent. Pancreas, spleen, and adrenal glands are normal. Normal appearance of both kidneys with no hydronephrosis. Ureters are nondilated. Urinary bladder contains gas, possibly related to catheterization. Uterus is normal in size. No adnexal mass. Colonic diverticulosis is noted without evidence of diverticulitis. The appendix is not definitely seen. Small bowel and stomach are normal. No mesenteric, retroperitoneal, pelvic, or inguinal lymphadenopathy. No intra-abdominal free air or free fluid. Mild calcified atherosclerotic disease in the abdominal aorta. No suspicious osseous lesion. Impression: 1. New bilateral pulmonary nodules which have developed since 05/30/2024 and in the setting of bacteremia may represent septic emboli. 2. No acute process in the abdomen or pelvis or CT explanation for back pain The findings, conclusions and recommendations within this report do not replace the initial findings, conclusions and recommendations made at the facility where the study was performed based upon the imaging and clinical condition at that time. Comparison with the prior report and clinical history is necessary. The provided images may or may not represent the nenana source data set and thus may contain changes that may lower the accuracy of this second-opinion interpretation. Electronically signed by: Geo Patel MD, PHD US Outside Consult Narrative: EXAMINATION: RADIOLOGY CONSULTATION ON OUTSIDE IMAGING STUDY STUDY INITIALLY PERFORMED: 07/01/2024 at [facility]. TYPE OF STUDY: Multiple ultrasound images without cine clips of the kidneys are provided at the time of this interpretation. TYPE OF CONSULTATION: Consult on outside imaging study with images submitted through Outside Image Sharing Service DATE OF CONSULTATION: 07/07/2024 7:58 AM HISTORY: Flank pain COMPARISON: CT performed on 06/26/2024 FINDINGS: The kidneys are upper limits of normal in size, measuring 13.9 cm on the right and 14.8 cm on the left. There is no hydronephrosis on either side. No suspicious renal lesion. No renal calculus. The bladder is partially distended but appears grossly normal. Impression: 1. No hydronephrosis. The findings and impression are based on the available images, which may not be underwriting service representative of the entire organ or disease entity. Also note that ultrasound image acquisition is mail handler equipment operator dependent, and that the study was performed outside our facility with no control over image acquisition. In addition, the provided images may or may not represent the nenana source data set and thus may contain changes that may lower the accuracy of this second-opinion interpretation. The findings, conclusions and recommendations within this report do not replace the initial findings, conclusions and recommendations made at the facility where the study was performed based upon the imaging and clinical condition at that time. Comparison with the prior report and clinical history is necessary. Electronically signed by: Kevin Gottlieb M.D. CT Body Outside Consult Narrative: EXAMINATION: CHANGE CONSULT ON OUTSIDE IMAGES TO REFERENCE IMAGES Impression: This study was initially nominated as a consult on outside images via Outside Image Sharing Service. However, a consult was not performed because a more recent study of the same exam type was nominated for consultation simultaneously. This study will be used as a comparison exam. Accordingly, there will be no separate report of this study generated by a [facility] Radiologist. Electronically signed by: Kevin Gottlieb M.D. XR Outside Reference Narrative: EXAMINATION: Images For Reference Purposes Only Impression: These images are for Reference purposes only and have not been reviewed by [facility] Radiology. There will be no report generated by a [facility] Radiologist. ASSESSMENT & PLAN 63 y.o. female with a PMHx significant for MSSA bacteremia (05/2024), A-fib, HFrEF (EF 30%), T2DM, GERD, Intellectual disability, OAB, JOSE, and hypothyroidism who presented to OSH 06/28 for back pain. Found to have + blood cx for staph aureus and CT c/f OM. Tx to [facility] for further evaluation and treatment. #MSSA bacteremia #Biotronik ICD echodensity #History of Vfib/VT Recent admit 05/2024 for MSSA bacteremia. Per outside hospital TTE and GT no vegetations on valves or on ICD wires. Treated with 4 weeks of IV Ancef ending 06/21. Review of ID notes from OSH show blood cultures remained clear on 06/13. 07/01 blood cx were drawn x2. In first set, 1/2 gram + staph aureus anaerobic bottle (no comment on MRSA v. MSSA); second set 2/2 gram + staph aureus. Outside susceptibilities faxed over on 07/07, susceptible to oxacillin. Vanc + Ancef started, Vanc d/c 07/03. 07/02 cx NGTD. Concern at all given patient's back pain that there may be osteomyelitis. CT scan spine at OSH w/o acute findings of OM, unable to perform MRI due to patient's ICD. CTAP w/o acute findings, hiatal hernia present. Given recent infxn and recurrence 10d after antibiotics stopped, c/f limited source control of initial infection. Given strong suspicion of biofilm/lack of source control with ICD, deferring MRI at this time. - blood cultures redrawn on admission 07/08, NGTD - continue Ancef 2g Q8, outside hospital susceptibilities in wallpaper hanger, susceptible to oxacillin - TTE performed to re-evaluate leads demonstrating echodensity on V lead of ICD. Will likely require ICD removal - GT pending, NPO at [place] in case can be performed tomorrow - ICD: placed 2017 per sister, recurrent events of VF/VT requiring shocks, most recently 5 shocks on 06/10/24. Interrogated 07/07 (full results in folder), not pacer dependent - Cardiac surgery, EP, ID consulted, appreciate recommendations #Persistent atrial fibrillation #MAULIK Thrombus In AFib on admission. Previously on Tikosyn, however, taken off of Tikosyn after admission for MSSA. GT in May/2024 showed LA thrombus. Patient is on AC at home with Xarelto, RC with Coreg. Afterprior discharge, hospital arboreal scientist recommended stop Tikosyn and continue beta danny for rate control. At OSH, dual tim blockade with Dilt and Metop. Stopped Dilt 2/2 reduced EF. On Metop now. - anticoagulation: Heparin gtt - rate control with Metop given recent Afib RVR #HFrEF EF of 30% on 05/2024 echocardiogram, mild-mod MR, RVSP 42 mild-mod TR. OSH had patient on [id number] t.i.d., discontinued. GDMT: Coreg 25 BID, Farxiga 10, Entresto 24-26 BID, furosemide 40 daily. Patient examines euvolemic on admission. - continue home regimen #Recurrent UTI #OAB Per family, has been treated multiple times recently for UTIs. Her symptoms are not urinary in nature, her symptoms typically are becoming delirious and belligerent. UA at outside hospital with 0-5 WBC, 3+ nitrate. Cx was performed which showed >100,000 colonies E coli. Given recurrence of events, would consider colonization versus recurrent UTI. - Ancef as above - Home Vibegron 75 --> change to Mirabegron for formulary - Discussed with Dilia on 07/08 questions that UTI is source of bacteremia rather than the ICD. Explained that E coli in bladder likely colonization and that bacteremia was from different bug (MSSA) #Anemia: Hgb 10.8 on arrival. Bl: 11-12. MCV elevated. B12 > 1000 at OSH, Folate wnl - CTM #T2DM Home regimen: glargine 18u; Lispro 10 TID + SSI. A1c here 7.7 on 07/07/24. - Glargine at OSH 18u, Lispro 6u TID - POC glucose TIDAC #Hypothyroidism: Synthroid 75mcg, TSH 2.8 #Depression: Continue Lexapro 10, nortriptyline 10 #GERD: Pantoprazole 20 #Constipation: Senna-Docusate BID #JOSE: ordered CPAP, pt reportedly intermittently compliant at home #Hx of intellectual disability/developmental delay: Sister Dilia currently takes care of patient, other sister Peg assists. Both discuss pt medical decisions together. Patient is not consentable Code Status: Full Code Disposition: pending Best contact: Primary Emergency Contact: Dilia Moise Diet: Adult Diet Restricted; Consistent Carbohydrate NPO Diet VTE Prophylaxis: Heparin drip PT: OT: Valentina Brown MD PGY-1 Internal Medicine Cosigned by Da Ayala MD at 07/08/2024 3:33 PM CDT Associated attestation - Da Ayala MD - 07/08/2024 3:33 PM CDT Attending Documentation I have seen and examined the patient on 07/08/24. I agree with the findings and plan of care as discussed with the resident/fellow. Supplementary Attestation Today, I am treating the patient for MSSA bacteremia which is in severe exacerbation, progression, or experiencing treatment side effects as evidenced by recurrence after prolonged abx course; concern for device colonization, as described in the note. Reviewed records from the following unique sources (external institutions or providers from different services): electrophysiology, infectious diseases. Independently interpreted K 4.2 which shows normal value. Discussed the risk/benefit of ICD explant procedure/surgery with the patient as described in the note. The patient's diagnosis is significantly impacted by the following social determinants of health: health literacy. Da Ayala MD07/08/2024 3:31 PM documented in this encounter H&P Notes * Flynn King MD - 07/10/2024 8:37 AM CDT GT Pre-evaluation History/Clinical Summary: 63-year-old female with a history of AFIB, HFrEF, ICD, T2DM, GERD, Intellectual Disability, JOSE, Hypothyroidism, and MSSA bacteremia in (05/2024). Presented to OSH for Back Pain, found to have Staph Aureus and CT c/f OM, transferred to [facility] for further treatment. TTE on 07-07-24 showed a small 9x7mm mobile echo density attached to the V Lead, and EF=30%. GT requested to further evaluate for endocarditis. GT Indication: rule out endocarditis Decisional capacity to consent for GT? no (please list POA & explanation) - We will need to consent her sister Anibal Moise [phone] or Peg Rice [phone] Prior GT? no Details of prior GT: Prior TTE? yes - 07/07/24 Details of prior TTE: Mildly dilated LV, moderate to severe LV systolic dysfunction, EF=30%. Normal RV size and function. Mild biatrial enlargement. Normal IVC. Normal size aortic root. Mild MR, AR, TR. Small (9x7mm), modile echodensity attached to the V lead at the atrial level just proximal to TV, consider thrombus vs. vegetation. Cannot exclude involvement of TV. Consider TG to further evaluate. 1) Anesthesia/Sedation Risks: Prior complications with sedation or anesthesia: no Loose teeth or dentures: no EF <30%, RV dysfunction, or recent shock: yes - EF of 30% JOSE or severe lung disease: yes - JOSE ASA: Per Anesthesia 2) Bleeding Risks: Recent bleeding or contraindications to anticoagulation: no Current anticoagulation: heparin gtt Lab Results Component Value Date INR 1.47 (H) 07/07/2024 INR 1.91 (H) 06/05/2024 INR 1.42 (H) 05/29/2024 No results found for: PTT Lab Results Component Value Date LABPLAT 333 07/09/2024 LABPLAT 328 07/08/2024 LABPLAT 310 07/07/2024 3) GI Risks: Difficulty swallowing: no Prior surgery or known disease of esophagus or stomach: no Review of Systems: Review of systems as per HPI and, otherwise all other systems are negative. PMHX: has a past medical history of A-fib (CMS/HCC) ([facility]), CHF (congestive heart failure) (CMS/HCC)([facility]), Diabetes mellitus ([facility]), GERD (gastroesophageal reflux disease), Hypertension, Intellectual disability, OAB (overactive bladder), Sleep apnea, and Thyroid disease. PSHX: has a past surgical history that includes Cardiac defibrillator placement; Insert / replace /remove pacemaker; Cholecystectomy; Other surgical history (05/31/2024); and IR PICC Line Placement Over 5 Years of Age (N/A, 06/05/2024). Family Hx: family history is not on file. Social Hx: reports that she has never smoked. She has never used smokeless tobacco. Patient denies consuming alcoholic drinks. Allergies: Allergies Allergen Reactions Sulfa (Sulfonamide Antibiotics) Home Medications: HOME MEDICATIONS : albuterol HFA (PROVENTIL HFA,VENTOLIN HFA,PROAIR HFA) 90 mcg/actuation inhaler BASAGLAR 100 unit/mL (3 mL) pen for injection cholecalciferol (VITAMIN D-3) 5,000 unit tablet docusate sodium (COLACE) 100 mg capsule Entresto 24-26 mg tablet escitalopram (LEXAPRO) 10 mg tablet Farxiga 10 mg tablet ferrous sulfate 325 mg (65 mg of elemental iron) tablet fluticasone propionate (FLONASE) 50 mcg/actuation nasal spray Gemtesa 75 mg tablet insulin lispro (HumaLOG) 100 unit/mL pen for injection levothyroxine (SYNTHROID) 75 mcg tablet magnesium oxide (MAG-OX) 400 mg (241.3 mg elemental magnesium) tablet metoprolol XL (TOPROL-XL) 50 mg extended release tablet midodrine (PROAMATINE) 5 mg tablet multivit gjvvtpdg-ffjq-ZC-calcium (THERA-M) 9 mg iron-400 mcg tablet nortriptyline (PAMELOR) 10 mg capsule omeprazole (PriLOSEC) 20 mg capsule pen needle, diabetic 32 gauge x 5/32 needle potassium chloride ER 20 mEq CR tablet Xarelto 20 mg tablet Current Medications: ceFAZolin, 2,000 mg, intravenous, Q8H [facility] escitalopram, 10 mg, oral, Daily furosemide, 40 mg, oral, Daily insulin glargine, 18 Units, subcutaneous, QAM insulin lispro, 0-4 Units, subcutaneous, Nightly insulin lispro, 0-5 Units, subcutaneous, TID with meals insulin lispro, 7 Units, subcutaneous, TID with meals levothyroxine, 75 mcg, oral, Daily - 0600 magnesium oxide, 400 mg, oral, Daily metoprolol XL, 50 mg, oral, Daily mirabegron ER, 25 mg, oral, Daily nortriptyline, 10 mg, oral, Daily pantoprazole DR, 20 mg, oral, Daily potassium chloride ER, 30 mEq, oral, Q4H sacubitriL-valsartan, 1 tablet, oral, BID senna-docusate, 1 tablet, oral, BID sodium chloride 0.9%, 0.5-20 mL, intra-catheter, Q8H GALINA spironolactone, 12.5 mg, oral, Daily heparin, 0-33 Units/kg/hr, Last Rate: 15 Units/kg/hr (07/10/24 0831) Physical Exam: General appearance: confused, not oriented HEENT: NCAT, MMM, anicteric Lungs: CTAB, no w/r/r, non-labored Heart: RRR, S1, S2 normal, no murmur, rub or gallop. JVP not elevated, mild LE edema Abdomen: soft, NT/ND; bowel sounds normal Extremities: extremities normal, warm and well-perfused, equal pulses Skin: warm and dry Neurologic: No abnormal movements, non-focal exam Psych: Normal mood and affect Labs and Imaging: Reviewed Plan: Proceed with GT Flynn King MD Abrasive Sawyer Time: 8:37 AM Date: 07/10/2024 Cosigned by Da Ayala MD at 07/10/2024 11:28 AM CDT Associated attestation - Da Ayala MD - 07/10/2024 11:28 AM CDT Discussed GT with the patient and her sisters (by phone), who provided consent. Proceed with GT. * Marylou Saravia MD - 07/07/2024 12:15 AM CDT CARDIOLOGY ADMISSION HISTORY AND PHYSICAL Patient: Lei Calderon [place] Room: [id number] Date: 07/07/2024 SUBJECTIVE CHIEF COMPLAINT Back pain HISTORY OF PRESENT ILLNESS 63 y.o. female with a PMHx significant for MSSA bacteremia (05/2024), A-fib, HFrEF (EF 30%), T2DM, GERD, Intellectual disability, OAB, JOSE, and hypothyroidism who presented to OSH 06/28 for back pain. Found to have + blood cx for staph aureus and CT c/f OM. Tx to [facility] for further evaluation and treatment. Information provided by patient's sister Dilia over the phone. Dilia is the patient's primary racebook writer at this time and is also the medical decision maker along with their other sister Peg. Sammy, patient had back/flank pain going on for a few days. She had finished IV antibiotics for MSSA bacteremia on June 21. Since finishing antibiotics patient had overall felt well, aside from 06/26 where she had an ED visit for N/V. Per Dilia, patient has had recurrent UTIs over the past few months. Dilia felt that patient possibly had another UTI causing sx. Patient is not able to explain urinary symptoms, however, per Dilia patient begins to act differently when she has a UTI. At [facility]: Vital signs on arrival with heart rate in the 80s, blood pressure 110s/50s, Satting 93% on room air. Labs on admission demonstrated white count of 6.2, hemoglobin of 11.9, platelets of 119. CMP with Na129, Cr 0.7, AST of 48, ALT 24, alk-phos 195. Per H&P, CVA tenderness present and UA with + nitrates, 100 rbc's, 0-5 WBC. Urine sent for cx and returned with > 100K colon ies of E. Coli. Given 1x dose of CTX in ED. EKG on presentation with AFib with RVR, treated with dilt gtt. Imaging pursued with CT lumbar spine without contrast demonstrated disc bulge at L3-L4 level, multilevel facet joint disease. Normal paraspinous soft tissue. Bilateral sacroiliitis. No acute osseous abnormality. CT AP with no acute abdominal process, sliding hiatal hernia present. Did demonstrate some pulmonary nodules, further evaluated with CT chest 07/06 which showed cardiomegaly with pericardial effusion, multiple nodules bilaterally with the largest in the right upper lobe measuring 1.3 cm. Unfortunately, provided with minimal notes from physician team. For unknown reason, 2x bloodcx drawn on 07/01. In first set, 1/2 gram + staph aureus anaerobic bottle (no comment on MRSA v. MSSA); second set 2/2 gram + staph aureus. Susceptibilites still pending, however, during prior admit in 05/2024 pt grew Staph aureus for which Ancef was susceptible and thus started along with Vanc. Vanc d/c 07/03. 07/02 cx drawn with NGTD. It is possible other antibiotics were given from 06/28 to 07/01,however, records provided do not show all meds administered. Due to + cx, TTE done with no visible vegetations on the pacemaker leads. EF 40-50%. Ultrasound of kidneys was performed due to c/f recurrent UTIs which was normal. Neurosurgery cs at OSH, rec MRI if c/f OM, however, stated pt pain not consistent with spinous process. Regarding patient's transfer to our hospital, although CT scan showed osseous involvement, outside hospital did not have capacity to perform MRI read with patient's ICD. Therefore, patient was transferred for further evaluation. Patient was recently admitted to [facility] in 05/2024 for bacteremia. She was initially admitted to [facility] on 05/21 and found to have MSSA bacteremia. Tx to [facility] 05/30 for concern for endocarditis. TTE and GT were both pursued which did not show vegetations on the valves or ICD leads. GT did reveal a left atrial appendage thrombus. She was treated with 4 weeks of IV Ancef which finished 06/21. Since that admission, she has had 2 emergency room visits. One for ventricular tachycardia resulting in ICD discharge and syncope where the patient struck her head and had a laceration that was sutured. She also was seen in the ER on 06/26 for abdominal pain and vomiting and diarrhea for 3 days. PAST MEDICAL HISTORY Past Medical History: Diagnosis Date A-fib ([facility]) (HCC) CHF (congestive heart failure) ([facility]) (HCC) Diabetes mellitus (HCC) GERD (gastroesophageal reflux disease) Hypertension Intellectual disability OAB (overactive bladder) Sleep apnea Thyroid disease PAST SURGICAL HISTORY Past Surgical History: Procedure Laterality Date CARDIAC DEFIBRILLATOR PLACEMENT CHOLECYSTECTOMY INSERT / REPLACE / REMOVE PACEMAKER IR PICC LINE PLACEMENT > 5 YEARS N/A 06/05/2024 OTHER SURGICAL HISTORY 05/31/2024 GT/CARDIOVERSION ALLERGIES AND DRUG REACTIONS Allergies Allergen Reactions Sulfa (Sulfonamide Antibiotics) FAMILY HISTORY No family history on file. SOCIAL AND FUNCTIONAL HISTORY Lives alone, but next to her nephew. Her sister's visit her daily and a sister with daily tasks. She does not use cigarettes or tobacco products, drink alcohol, or have any other drug use. Alcohol Use: Not At Risk (06/01/2024) AUDIT-C Frequency of Alcohol Consumption: Never Average Number of Drinks: Patient does not drink Frequency of Binge Drinking: Never PRIOR TO ADMISSION MEDICATIONS Medications Prior to Admission Medication Sig Dispense Refill Last Dose albuterol HFA (PROVENTIL HFA,VENTOLIN HFA,PROAIR HFA) 90 mcg/actuation inhaler Inhale 2 puffs every6 (six) hours as needed for wheezing BASAGLAR 100 unit/mL (3 mL) pen for injection Inject 18 Units under the skin daily cholecalciferol (VITAMIN D-3) 5,000 unit tablet Take 1 tablet (5,000 Units total) by mouth daily docusate sodium (COLACE) 100 mg capsule Take 1 capsule (100 mg total) by mouth 2 (two) times a day Entresto 24-26 mg tablet Take 0.5 tablets by mouth 2 (two) times a day escitalopram (LEXAPRO) 10 mg tablet Take 1 tablet (10 mg total) by mouth daily Farxiga 10 mg tablet Take 1 tablet (10 mg total) by mouth daily ferrous sulfate 325 mg (65 mg of elemental iron) tablet Take 1 tablet (325 mg total) by mouth dailywith breakfast fluticasone propionate (FLONASE) 50 mcg/actuation nasal spray Administer 1 spray into each nostril daily as needed for rhinitis Gemtesa 75 mg tablet Take 1 tablet by mouth daily insulin lispro (HumaLOG) 100 unit/mL pen for injection Inject 8 Units under the skin 3 (three) times a day with meals (plus blood glucose mg/dL 150-199: 2 units, 200-249: 4 units, 250-299: 6 units, 300-349: 8 units, 350 or greater: 10 units. Notify provider for blood glucose greater than 299 mg/dL.Max daily dose 60) Refer to After Visit Summary for Sliding Scale Insulin Instructions. 15 mL 0 levothyroxine (SYNTHROID) 75 mcg tablet Take 1 tablet (75 mcg total) by mouth every morning magnesium oxide (MAG-OX) 400 mg (241.3 mg elemental magnesium) tablet Take 1 tablet (400 mg total) by mouth daily 30 tablet 0 metoprolol XL (TOPROL-XL) 50 mg extended release tablet Take 1 tablet (50 mg total) by mouth daily 30 tablet 0 midodrine (PROAMATINE) 5 mg tablet Take 1 tablet (5 mg total) by mouth 2 (two) times a day as needed (if systolic blood pressure less than 90mmHg) 30 tablet 0 multivit nfwgqdoj-cqzb-BT-calcium (THERA-M) 9 mg iron-400 mcg tablet Take 1 tablet by mouth daily nortriptyline (PAMELOR) 10 mg capsule Take 1 capsule (10 mg total) by mouth daily omeprazole (PriLOSEC) 20 mg capsule Take 1 capsule (20 mg total) by mouth daily ondansetron (ZOFRAN) 4 mg tablet Take 1 tablet (4 mg total) by mouth every 6 (six) hours as needed for nausea or vomiting 20 tablet 0 pen needle, diabetic 32 gauge x needle Use as directed 3 times a day. 100 each 0 potassium chloride ER 20 mEq CR tablet Take 1 tablet (20 mEq total) by mouth daily Xarelto 20 mg tablet Take 1 tablet (20 mg total) by mouth daily with dinner CURRENT MEDICATIONS Scheduled Meds: Scheduled Meds:ceFAZolin, 2,000 mg, intravenous, Q8H [facility] escitalopram, 10 mg, oral, Daily furosemide, 40 mg, oral, Daily insulin glargine, 18 Units, subcutaneous, QAM insulin lispro, 0-4 Units, subcutaneous, Nightly insulin lispro, 0-5 Units, subcutaneous, TID with meals insulin lispro, 6 Units, subcutaneous, TID with meals levothyroxine, 75 mcg, oral, Daily - 0600 magnesium oxide, 400 mg, oral, Daily metoprolol XL, 50 mg, oral, Daily nortriptyline, 10 mg, oral, Daily sacubitriL-valsartan, 1 tablet, oral, BID senna-docusate, 1 tablet, oral, BID sodium chloride 0.9%, 0.5-20 mL, intra-catheter, Q8H [facility] Continuous Infusions: PRN Meds:. acetaminophen sodium chloride 0.9% cyclobenzaprine dextrose OR dextrose glucagon ondansetron ODT OR ondansetron polyethylene glycol ramelteon sodium chloride 0.9% Continuous Infusions: PRN Meds:. acetaminophen sodium chloride 0.9% ondansetron ODT OR ondansetron polyethylene glycol ramelteon sodium chloride 0.9% REVIEW OF SYSTEMS 12 system review of systems performed. All negative except those listed in HPI. OBJECTIVE PHYSICAL EXAMINATION There were no vitals filed for this visit. Wt Readings from Last 3 Encounters: 06/26/24 114.8 kg (253 lb) 06/11/24 115.1 kg (253 lb 11.2 oz) 06/07/24 113.6 kg (250 lb 6.4 oz) Gen: No apparent distress. Resting comfortably. Cooperative. HEENT: No conjunctival pallor or injection, no icterus. No nasal discharge. Moist mucus membranes. Cardiac: Irregularly irregular rate and rhythm, normal S1/S2. No murmurs. No JVD. No S3/S4. No LE edema. Peripheral pulses 2+ bilaterally. Pulm: Clear to auscultation bilaterally. No wheezing or rhonchi. Abdomen: Soft. Bowel sounds present. No tenderness or distension. Extremity: Warm. No edema. No clubbing or cyanosis. Neuro: Alert and orientedx3. Sensation intact throughout to light touch Skin: No lesions, erythema, or skin changes. Psych: Mood appropriate. Appropriate insight. INTAKE/OUTPUT DATA No intake or output data in the 24 hours ending 07/07/24 0016 REVIEW OF LABORATORY DATA I have reviewed the following: Chem Recent Labs Lab Units 07/07/24 0134 SODIUM mmol/L 136 POTASSIUM PLASMA mmol/L See Comment CHLORIDE mmol/L 99 CO2 mmol/L 29 ANIONGAP mmol/L 8 BUN SERUM mg/dL 15 CREATININE mg/dL 0.65 GLUCOSE mg/dL 186 CALCIUM mg/dL 8.9 MAGNESIUM mg/dL 1.9 LFTs Recent Labs Lab Units 07/07/24 0134 ALK PHOS Units/L 182* BILIRUBIN TOTAL mg/dL 0.4 TOTAL PROTEIN g/dL 7.2 ALT Units/L See Comment AST Units/L See Comment CBC Recent Labs Lab Units 07/07/24 0134 WBC K/cumm 7.7 HEMOGLOBIN g/dL 10.8* HEMATOCRIT % 33.2* PLATELETS K/cumm 339 NEUTROS PCT % 71.8 LYMPHS PCT % 16.7 MONOS PCT % 5.8 EOS PCT % 3.5 Coags Recent Labs Lab Units 07/07/24 0134 APTT sec 28 INR 1.47* Cardiac Enzymes No results found for: TROPONINT Urine Analysis ABG REVIEW OF IMAGES AND STUDIES I have reviewed the following: ECG: Afib, LBBB TTE (05/2024): Technically difficult study with limited views. Mild enlargement of left ventricle cavity. Left ventricle not well visualized. Optison contrast agent used to visually enhance endocardial wall motion and contractility. Normal left ventricular wall thickness. Paradoxical septal motion consistent with IVCD or bundle branch block. Ejection fraction is measured at 30 %. Normal right ventricular systolic function. Pacemaker noted. Normal structure of the mitral valve. Mild to moderate mitral valve regurgitation. The regurgitation jet is eccentrically directed which may underestimate the severity of mitral regurgitation. Tricuspid valve not well visualized. Estimated peak RVSP is 42 mmHg. Mild to moderate tricuspid regurgitation. Trivial pericardial effusion. GT 05/2024: Atrial Septum: Normal atrial septum. Left Atrium: The left atrium is enlarged. Left Atrium APPENDAGE Left atrial appendage clot was seen. Right Ventricle: Normal right ventricular systolic function. Linear artifact in right ventricle is consistent with RV defibrillator lead. Brightness on RV lead is due to RV coil on defibrillator leadnor a vegetation Right Atrium: mild JOSEPH, leads seen Linear artifact in right ventricle is consistent with RV defibrillator lead. Brightness on RV lead is due to RV coil on defibrillator lead nor a vegetation ASSESSMENT & PLAN 63 y.o. female with a PMHx significant for MSSA bacteremia (05/2024), A-fib, HFrEF (EF 30%), T2DM, GERD, Intellectual disability, OAB, JOSE, and hypothyroidism who presented to OSH 06/28 for back pain. Found to have + blood cx for staph aureus and CT c/f OM. Tx to [facility] for further evaluation and treatment. #MSSA bacteremia Recent admit 05/2024 for MSSA bacteremia. Per outside hospital TTE and GT no vegetations on valves or on ICD wires. Treated with 4 weeks of IV Ancef ending 06/21. Review of ID notes from OSH show blood cultures remained clear on 06/13. 07/01 blood cx were drawn x2. In first set, 1/2 gram + staph aureus anaerobic bottle (no comment on MRSA v. MSSA); second set 2/2 gram + staph aureus. Susceptibilites still pending, however, during prior admit in 05/2024 pt grew Staph aureus for which Ancef was susceptible and thus started along with Vanc. Vanc d/c 07/03. 07/02 cx NGTD. Concern at all given patient's back pain that there may be osteomyelitis. CT scan spine at OSH w/o acute findings of OM, unable to perform MRI due to patient's ICD. CTAP w/o acute findings, hiatal hernia present. Given recent infxn and recurrence 10d after antibiotics stopped, c/f limited source control of initial infection. - continue Ancef 2g Q8, follow-up with outside hospital susceptibilities - blood cultures redrawn on admission 07/08, follow-up - Source ctrl: given recurrence and back pain consider MRI spine - TTE for re-eval of valves, leads #Recurrent UTI #OAB Per family has been treated multiple times recently for UTIs. Her symptoms are not urinary in nature, her symptoms typically are becoming delirious and belligerent. UA at outside hospital with 0-5 WBC, 3+ nitrate. Cx was performed which showed >100,000 colonies E coli. Given recurrence of events, would consider colonization versus recurrent UTI. - Ancef as above - susceptibilities not complete, follow-up with outside hospital if favoring treatment - Home Vibegron 75 --> change to Mirabegron for formulary #VFib/VT #ICD: Biotronik ICD placed 2017 per sister. Patient has had recurrent events of VFib/V-tach requiring shocks. Most recently was shocked in the beginning of June. - Device interrogation - Lytes: K > 4, Mg > 2 #Persistent atrial fibrillation #MAULIK Thrombus In AFib on admission. Previously on Tikosyn, however, taken off of Tikosyn after admission for MSSA. GT in May/2024 showed LA thrombus. Patient is on AC at home with Xarelto, RC with Coreg. Afterprior discharge, hospital arboreal scientist recommended stop Tikosyn and continue beta danny for rate control. At OSH, dual tim blockade with Dilt and Metop. Stopped Dilt 2/2 reduced EF. On Metop now. - anticoagulation: Heparin gtt - rate control with Metop given recent Afib RVR #HFrEF EF of 30% on 05/2024 echocardiogram, mild-mod MR, RVSP 42 mild-mod TR. OSH had patient on [id number] t.i.d., discontinued. GDMT: Coreg 25 BID, Farxiga 10, Entresto 24-26 BID, furosemide 40 daily. Patient examines euvolemic on admission. - continue home regimen #Anemia: Hgb 10.8 on arrival. Bl: 11-12. MCV elevated. B12 > 1000 at OSH, Folate wnl - CTM #T2DM Home regimen: glargine 18u; Lispro 10 TID + SSI. - Check A1c - Glargine at OSH 18u, Lispro 6u TID - POC glucose TIDAC #Hypothyroidism: Synthroid 75mcg, TSH 2.8 #Depression: Continue Lexapro 10, nortriptyline 10 #GERD: Pantoprazole 20 #Constipation: Senna-Docusate BID #JOSE: ordered CPAP, pt reportedly intermittently compliant at home #Hx of intellectual disability/developmental delay: Sister Dilia currently takes care of patient, other sister Peg assists. Both discuss pt medical decisions together. Diet: Carb consistent DVT: Heparin gtt PT/OT: ordered Code Status: Full code Marylou Saravia MD Cosigned by Da Ayala MD at 07/08/2024 1:08 PM CDT Associated attestation - Da Ayala MD - 07/08/2024 1:08 PM CDT Attending Documentation I have seen and examined the patient on 07/07/2024. I agree with the findings and plan of care as documented in the resident's/fellow's note. and with the following modifications: . 63 yo woman with recurrent MSSA bacteremia and back pain with concerns for osteomyelitis after completing 4 weeks of abx, in the setting of ICD. She also has afib with MAULIK clot, HFrEF, and VT s/p ICDtherapy. TTE Will need device explanted. Interrogate device to understand how many episodes of ventricular arrhythmias she has had and to confirm not pacemaker-dependent. May need a wearable cardioverter-defibrillator pending interval between explant and new device implant (ie., if she will be going home between these procedures). ID, CTS, EP consults regarding Staph aureus bacteremia, request for device explant. Consider spine MRI to eval for osteomyelitis. Follow-up OSH blood cultures. Discontinue Farxiga given reported recurrent UTI and current infection. Supplementary Attestation Today, I am treating the patient for MSSA bacteremia which is in severe exacerbation, progression, or experiencing treatment side effects as evidenced by recurrent bacteremia, concern for device infection requiring explant, as described in the note. Reviewed records from the following unique sources (external institutions or providers from different services): records from [facility]. Assessment required an independent historian, additional information obtained from relative/family member(s). Independently interpreted cr 0.55 which shows normal renal function. Discussed management of device-associated bacteremia with electrophysiology. Discussed the risk/benefit of ICD explant procedure/surgery with the patient as described in the note. The patient's diagnosis is significantly impacted by the following social determinants of health: health literacy. Da Ayala MD07/08/2024 1:01 PM documented in this encounter Procedure Notes * Zeenat Hdz, RN - 07/23/2024 6:13 PM CDT Images from the original note were not included. Vascular Access Nurse: Procedure Note Summary of treatment provided to patient today is as follows : . Bedside Procedure Time out/Checklist (Last 4 Hours) Pre-Op Checklist Row Name 07/23/24 1754 07/23/24 1700 07/23/24 1600 07/23/24 1533 07/23/24 1500 Patient/Chart Verification Patient ID Verified Verbal;Armband -FS Verbal;Armband -MS -- -- -- Allergies Verified Yes -FS Yes -MS -- -- -- Arm Bands On -- ID;Allergies;Fall -MS -- -- -- Consents Confirmed -- Informed -MS -- -- -- Pre-op Lab/Test Results Available In chart -FS -- -- -- -- Antibiotic Status Not applicable -FS -- -- -- -- Arm Bands On -- ID;Allergies;Fall -MS ID;Allergies;Fall -MS -- ID;Allergies;Fall -MS Procedure Verification Correct Patient Yes -FS -- -- -- -- Correct Procedure Yes -FS -- -- -- -- Correct Laterality Yes -FS -- -- -- -- Correct Site Yes -FS -- -- -- -- Site Marked Yes -FS -- -- -- -- Patient Preparation Temp -- -- -- 36.6 ??C (97.9 ??F) -MS -- User Vaz (r) = Recorded By, (t) = Taken By, (c) = Cosigned By Initials Name FS Zeenat Hdz RN MS Shetley, Coleen Oneal RN Vascular Access Documentation (Last 4 Hours) [facility] Additional Procedures Row Name 07/23/24 6725 PICC Screening Questionnaire Order written on the chart for PICC insertion or placement? Y -FS Information form/Consent Obtained from POA/ Family Y -FS Is there an order from Renal giving ok to place PICC line? N/A -FS Are there any location restrictions? Y -FS Which location is NOT accessible for line placement? Right -FS Reason location not accessible for line placement Other (comment) pacemaker to be implanted on right side -FS Does the patient have history of DVT or SVC syndrome? N -FS Does the patient currently have blood clots in chest / arms? N -FS Review of all IV meds/drips completed Yes -FS Patient allergies reviewed? Y -FS Labs Reviewed if applicable INR;Blood Cultures;Platelet count;Creatinine -FS Procedures Line Type PICC double -FS Time in 1739 -FS Time out 1824 -FS Time Calculation (min) 45 min -FS Vascular Access Procedures PICC line assessment;Education PICC/Midline;Incomplete PICC/Midline procedure -FS Incomplete PICC/Midline Procedure Unable to place PICC line/Midline catheter;Unable to thread catheter;Attempted x 1;Ultrasound utlized;Site prepped per protocol;Physician notified Vein cannulated easily. PICC would not thread past the old pacemaker site. Many maneuvers and pt repositioning attempted without success. RN and MD aware. -FS Comfort Measures Distraction;Position of comfort -FS Patient Response Tolerated (no change in status) -FS Peripheral IV 07/21/24 22 G Posterior;Right Hand IV Properties Placement Date: 07/21/24 -EH Placement Time: 1415 -EH Type: Angiocath -EH Size (Gauge): 22 G -EH Location Orientation: Posterior;Right -EH Location: Hand -EH Site Prep: Chlorhexidine;Alcohol -EH Technique: Anatomical landmarks -EH Inserted by: emily -EH Insertion attempts: 1 -EH Patient Tolerance: Tolerated well -EH User Vaz (r) = Recorded By, (t) = Taken By, (c) = Cosigned By Initials Name Emily aGrg Zeenat Mazariegos RN Plan:VAS attempted Left only PICC placement as pt to have Pacemaker replaced to R side in future. Left basilic Vein cannulated easily. PICC would not thread past the old pacemaker site. Many maneuvers and pt repositioning attempted without success. RN and MD aware. Follow up: Zeenat Hdz RN documented in this encounter Consult Notes * Son, Carmencitapaola Moreno MD - 07/18/2024 3:58 PM CDTAssociated Order(s): IP CONSULT TO PSYCHIATRY PSYCHIATRY INITIAL CONSULTATION REPORT Consultation Requested: Date: 07/18/24 Requesting Consultation from: Psychiatry Requesting Service: Cardiology Firm Attending Requesting Consultation: Dr. Roman Reason for Consultation: suicidal ideation SOURCE OF INFORMATION: - Patient, who is considered an unreliable historian - Collateral informant: patient's sister Dilia Moise, seemingly reliable, reached at [phone] - Review of the EMR - PDMP website, no records GUARDIANSHIP: No Patient is her own guardian, but her two sisters help make medical decisions for her (no formal advance directives or power of deputy commonwealth's attorney documents). CHIEF COMPLAINT: Mind your own [employer] business! HISTORY OF PRESENT ILLNESS: Lei Rodriguez is a 63 y.o. 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 Psychiatry consulted for SI. Patient is not known to our service. Given patient's refusal to partake in interview and lack of records, the following history has been obtained from collateral sources. 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 No known history of trauma or abuse. Has had behavioral issues and poor frustration tolerance related to her IDD since childhood, with outbursts ( tantrums ) especially when being told what to do. Low mood has not lasted more than a day. Denies history of SIB, suicide attempts, orhurting others. No known history of prakash, hypomania, psychosis. Has had anxiety related to hospital izations. Denies history of excessive worrying about multiple topics, difficulty controlling worrying, panic attacks. No prior psychiatric admissions. Has used marijuana at low frequency (once every few months). Denies other substance use. Has been prescribed Lexapro 10mg for a while, but sister did not know what this was for. Sister thinks her nortriptyline 10mg is for sleep. Regarding current presentation, patient initially presented to OSH on 06/28 for back pain but was found to have blood cultures positive for Staph aureus and CT c/f OM, transferred to [facility] on 07/08/24 for further evaluation and treatment. Found to have MSSA TV endocarditis secondary to infected ICD lead. ICD was removed on 07/13/24. Requires 2 weeks of IV abx, then planning to replace ICD. Has been increasingly frustrated with prolonged hospitalization, especially in the setting of recurrent admissions since May 2024. She has made comments about not wanting to be in the hospital, being tired ofall the testing, saying she does not want a pacemaker, wanting to go to [facility]. Today, she began thr owing lunch tray, medications, soda cans around her room, pulled telemetry box, swatted at staff. She told sister over the phone that she didn't want a pacemaker, wanted heart to stop, wanted to go home and to let her . Patient was placed on 1:1 sitter. Patient became even more agitated, cursed and yelled at sitter. Was found to be in afib with RVR, given IV metoprolol 5mg and Zyprexa 5mg IM. She continued to yell about sitter. Psychiatry was consulted for SI and pharmacologic management of agitation. During interview, patient was standing behind her recliner yelling at sitter for being there. She refused to speak with me and repeatedly yelled I don't have to fucking tell you and mind your own fucking business when I asked questions about current presentation, SI, psychiatric history, orientation questions, concerns, even hobbies. Interview was terminated. Patient's sister Dilia was reached over the phone. She reports patient has repeatedly made suicidal statements in the past and present due to frustration with being in the hospital. Dilia states patient has never acted on these statements. She feels that patient is not actually suicidal, but this is how she is expressing her frustration being in and out of the hospital for the past few months. Also reports she has been throwing tantrums since childhood whenever she is told what to do. Dilia states patient especially does not like being watched, which is why she is uncomfortable with sitter. She does not think she is at riskof harming herself in or out of the hospital. She thinks patient could benefit for a scheduled medication for her nerves. CURRENT PROBLEMS: Principal Problem: Osteomyelitis (HCC) Active Problems: Endocarditis Past Medical History: Diagnosis Date A-fib ([facility]) (HCC) CHF (congestive heart failure) ([facility]) ([facility]) Diabetes mellitus (HCC) GERD (gastroesophageal reflux disease) Hypertension Intellectual disability OAB (overactive bladder) Sleep apnea Thyroid disease Past Surgical History: Procedure Laterality Date CARDIAC DEFIBRILLATOR PLACEMENT CHOLECYSTECTOMY INSERT / REPLACE / REMOVE PACEMAKER IR PICC LINE PLACEMENT > 5 YEARS N/A 06/05/2024 OTHER SURGICAL HISTORY 05/31/2024 GT/CARDIOVERSION Allergies Allergen Reactions Sulfa (Sulfonamide Antibiotics) MEDICATIONS: Current Facility-Administered Medications Medication Dose Route Frequency Provider Last Rate Last Admin acetaminophen (TYLENOL) tablet 650 mg 650 mg oral Q4H PRN Marylou Saravia MD 650 mg at 07/18/24 0159 apixaban (ELIQUIS) tablet 5 mg 5 mg oral Q12H Bceca Mcdowell MD 5 mg at 07/18/24 0904 Carrier Fluids for Secondary Infusion - 0.9% Sodium Chloride 30 mL intravenous PRN Marylou Saravia MD ceFAZolin (ANCEF) 2,000 mg/20 mL in sterile water (premix) 2,000 mg 2,000 mg intravenous Q8H GALINA Marylou Saravia MD 2,000 mg at 07/18/24 0516 cyclobenzaprine (FLEXERIL) tablet 5 mg 5 mg oral TID PRN Marylou Saravia MD 5 mg at 07/15/242218 dextrose gel in packet 15 g 15 g oral Q15 Min PRN Marylou Saravia MD Or dextrose (D10W) 10% bolus 250 mL 250 mL intravenous Q15 Min PRN Marylou Saravia MD escitalopram (LEXAPRO) tablet 10 mg 10 mg oral Daily Marylou Saravia MD 10 mg at 07/18/24 0904 furosemide (LASIX) tablet 40 mg 40 mg oral Daily Marylou Saravia MD 40 mg at 07/18/24 0904 glucagon injection 1 mg 1 mg intramuscular Q30 Min PRN Marylou Saravia MD insulin glargine (LANTUS, SEMGLEE) 100 unit/mL injection 22 Units 22 Units subcutaneous QAM Becca Wilcox MD 22 Units at 07/18/24 0904 insulin lispro (HumaLOG, ADMELOG) 100 unit/mL injection 0-10 Units 0-10 Units subcutaneous TID withmeals Valentina Brown MD 4 Units at 07/18/24904 insulin lispro (HumaLOG, ADMELOG) 100 unit/mL injection 0-5 Units 0-5 Units subcutaneous Nightly Valentina Brown MD 4 Units at 07/17/242108 insulin lispro (HumaLOG, ADMELOG) 100 unit/mL injection 9 Units 9 Units subcutaneous TID with Becca Diallo MD 9 Units at 07/18/24 09 Lactated Ringer's (LR) infusion 30 mL/hr intravenous Continuous Stepan Love MD New Bag at1 1516 levothyroxine (SYNTHROID) tablet 75 mcg 75 mcg oral Daily - 0600 Marylou Saravia MD 75 mcg at 07/18/24 0516 lidocaine (LMX) 4 % cream 1 Application 1 Application topical QID PRN Becca Wilcox MD magnesium oxide (MAG-OX) tablet 400 mg 400 mg oral Daily Marylou Saravia MD 400 mg at 07/18/24 09 metoprolol XL (TOPROL-XL) extended release tablet 50 mg 50 mg oral Daily Marylou Saravia MD 50 mg at 07/18/24 0904 mirabegron ER (MYRBETRIQ) extended release tablet 25 mg 25 mg oral Daily Marylou Saravia MD 25 mg at 07/18/24 0904 nortriptyline (PAMELOR) capsule 10 mg 10 mg oral Daily Marylou Saravia MD 10 mg at 07/18/24 09 ondansetron ODT (ZOFRAN-ODT) disintegrating tablet 4 mg 4 mg oral Q6H PRN Marylou Saravia MD Or ondansetron (ZOFRAN) injection 4 mg 4 mg intravenous Q6H PRN Marylou Saravia MD 4 mg at 07/13/[address] (PROTONIX) extended release tablet 20 mg 20 mg oral Daily Marylou Saravia MD 20 mg at 07/18/24 09 polyethylene glycol (MIRALAX) packet 17 g 17 g oral Daily PRN Marylou Saravia MD ramelteon (ROZEREM) tablet 8 mg 8 mg oral Nightly PRN Marylou Saravia MD 8 mg at 07/14/24 2134 sacubitriL-valsartan (ENTRESTO) 24-26 mg tablet 1 tablet 1 tablet oral BID Marylou Saravia MD 1 tablet at 07/18/24 09 senna-docusate (PERICOLACE) 8.6-50 mg per tablet 1 tablet 1 tablet oral BID Marylou Saravia MD 1 tablet at 07/18/24 0904 sodium chloride 0.9% flush 0.5-20 mL 0.5-20 mL intra-catheter Q8H GALINA Marylou Saravia MD10 mL at 07/18/24 1448 sodium chloride 0.9% flush 0.5-20 mL 0.5-20 mL intra-catheter Marylou Pastor MD spironolactone (ALDACTONE) split tablet 12.5 mg 12.5 mg oral Daily Valentina Brown MD 12.5 mg at 07/18/24 0904 No family history on file. Additional Relevant Family Medical/ Psychiatric History: denies Social History Tobacco Use Smoking status: Never Smokeless tobacco: Never Substance and Sexual Activity Drug use: None Sexual activity: None Alcohol Use: Not At Risk (06/01/2024) AUDIT-C Frequency of Alcohol Consumption: Never Average Number of Drinks: Patient does not drink Frequency of Binge Drinking: Never Social History Social History Narrative Not on file SOCIAL HISTORY: Born in [place], [place]; and raised in: [place], [place] Siblings: at least 2 sisters Marital status: since 2014 Currently lives in: apartment alone, but nephew lives next door and sister Dilia is her personal development educator and is frequently at her place Education: 9th grade Work: disabled Abuse/trauma history: denies Legal: denies Tobacco: denies Drugs: marijuana once every few months Alcohol: denies Access to firearms: denies REVIEW OF SYSTEMS: Review of systems per HPI and otherwise all other systems are negative PHYSICAL EXAMINATION: Vitals: 07/18/24 1500 BP: Pulse: 107 Resp: Temp: SpO2: A physical exam was performed by the primary team and reviewed. MENTAL STATUS EXAMINATION: General Appearance and Behavior: appears stated age, standing behind recliner, hospital gown open in back with backside visible, tearful, anxious-appearing, fair eye contact, psychomotor agitated with some pacing Speech: increased volume, normal rate, rhythm, amount, tone, spontaneity, latency Thought Process: concrete Thought Content: no mention of SI, HI, AVH, delusions Mood: I don't have to fucking tell you! Affect: irritable, anxious Insight: poor Judgment: poor Sensorium: TOI to lack of cooperation Memory: TOI Attention/Concentration: TOI Associations: TOI Language: normal Fund of Knowledge: TOI LABORATORY DATA: Laboratory review: Lab results in the last 24 hours: Recent Results (from the past 24 hour(s)) POCT glucose Collection Time: 07/18/24 8:17 AM Result Value Ref Range Glucose, POC 215 (H) 70 - 199 mg/dL POCT glucose Collection Time: 07/18/24 11:41 AM Result Value Ref Range Glucose, POC 205 (H) 70 - 199 mg/dL POCT glucose Collection Time: 07/18/24 5:16 PM Result Value Ref Range Glucose, POC 378 (H) 70 - 199 mg/dL POCT glucose Collection Time: 07/18/24 8:17 PM Result Value Ref Range Glucose, POC 304 (H) 70 - 199 mg/dL CBC without differential Collection Time: 07/18/24 9:07 PM Result Value Ref Range WBC 5.3 3.8 - 9.9 K/cumm Hgb 11.4 (L) 11.9 - 15.5 g/dL Hct 35.5 (L) 35.6 - 45.5 % Plt 257 150 - 400 K/cumm MPV 9.8 9.1 - 12.3 fL RBC 3.50 (L) 3.90 - 5.20 M/cumm MCV 101.4 (H) 81.3 - 96.4 fL MCH 32.6 27.1 - 33.3 pg MCHC 32.1 (L) 32.3 - 35.7 g/dL RDW CV 13.8 11.1 - 14.9 % RDW SD 51.6 (H) 35.7 - 48.1 fL NRBC abs 0.00 0.00 - 0.01 K/cumm PRIMARY CONSULT DIAGNOSIS: IDD ASSESSMENT: Lei Rodriguez is a 63 y.o. 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 Psychiatry consulted for SI. Patient has a history of making suicidal statements while frustrated, but has never had intent or plan to act on these statements. Has not had suicide attempts. Patient's passive suicidal statements and aggressive behavior today appear similar to prior episodes in the setting of poor frustration tolerance related to her IDD. I was unable to further evaluate patient's suicidality by interview. However, patient remains future-oriented, and collateral confirms this is co nsistent with prior behavior and does not pose concern for acute risk of harm to self or others at this time. Per primary team, IM PRN antipsychotics have required security presence and physical holds, which have been especially anxiety-provoking to patient and further amplifying patient's frustration with hospitalization. They feel patient has not responded well to attempts at verbal de-escalations. At this time, I do not recommend giving scheduled antipsychotics in this relatively antipsychotic- naive individual that is likely especially sensitive to neuroleptics given IDD and risk of QTc prolongation. Given patient's high level of irritability that is hindering her medical adherence which can be life-threatening (undertreatment of endocarditis with bacteremia, agitation leading to RVR, plan to replace ICD on 1018 after completing 2 weeks of IV abx), patient may benefit from scheduled benzodiazepines, which should be weighed against risk of delirium. Risk assessment: The patient is considered to be at a mildly elevated risk of harm to self and/or others compared tothe general population. Risk factors include: impulsivity, treatment non-adherence, poor coping skills, chronic medical issues, poor judgment, poor insight, and cognitive impairment Protective factors include: is not endorsing auditory/visual hallucinations exhibits future planning no access to firearms positive social supports no active substance abuse Attempts to mitigate the risk of harm to self or others include: use of psychotropic medication social support psychoeducation provided RECOMMENDATIONS: - Can consider trialing Klonopin 0.5mg BID for now - Verbally redirect as much as possible. Do not recommend giving Zyprexa within an hour of benzodiazepines due to risk of respiratory depression. As such, can switch PRN to Haldol 2mg PO or IM QID. Can administer with PRN Ativan 1mg PO or IM. - Monitor for delirium - Outpatient, may want to consolidate Lexapro 10mg and nortriptyline 10mg into single serotonergic antidepressant to decrease polypharmacy DELIRIUM PRECAUTIONS: Patient should have window bed if possible Please minimize night time interruptions, including night time vital signs or PRN medications Please keep room dark at night and keep room well-lit, with window shades open during the day Provide glasses, hearing aids, dentures, etc as appropriate and tolerated for improved orientation Remove lines, drains, etc as soon as possible Avoid deliriogenic / anticholinergic / narcotic medications as much as possible Psychiatry consults will continue to follow. For questions, concerns, or to request a re-evaluation, please contact the Psychiatry Consult Service at [phone]. All recommendations preliminary until note has been cosigned/attested by a Psychiatry attending (Tuesday - Tuesday during regular business hours). Carmencita Stovall MD Cosigned by Yon Rebolledo MD at 07/19/2024 6:52 PM CDT * Tim Strong MD - 07/11/2024 3:52 PM CDTAssociated Order(s): IP CONSULT TO VASCULAR SURGERY Vascular Surgery Consultation Patient Name/MRN: Lei Rodriguez [id number] Reason for Consult: vegetation on TV in patient with recurrent MSSA bacteremia, consideration of angiovac Attending: Elvira Cooper MD Today's Date: 07/11/2024 Admitting Service: Cardiology Admitting location: [place] [id number] Admit Date: 07/07/2024 Code Status: Full Code CC: No chief complaint on file. HPI: 63-year-old female with a history of AFIB, HFrEF, ICD, T2DM, GERD, Intellectual Disability, JOSE, Hypothyroidism, and MSSA bacteremia in (05/2024). She presented to outside hospital for back pain was found to have staph aureus bacteremia with CT findings concerning for osteomyelitis and was transferred to [facility]. GT performed yesterday demonstrated 1.2 x 0.9 cm vegetation on her tricuspid valve, likely on the posterior leaflet. CTS was consulted for removal of her ICD due to suspicion of bacterial seeding leading to recurrent bacteremia. Vascular surgery is consulted for consideration of AngioVacfor tricuspid vegetation if she is found not to be a candidate for surgical repair of her tricuspidvalve. Spine MRI is pending for further workup of her potential osteomyelitis. Pertinent Cardiovascular Medications: - Anticoagulation: Heparin gtt for AFib Past Medical History: Diagnosis Date A-fib (CMS/HCC) (HCC) CHF (congestive heart failure) (CMS/HCC) (HCC) Diabetes mellitus (HCC) GERD (gastroesophageal reflux disease) Hypertension Intellectual disability OAB (overactive bladder) Sleep apnea Thyroid disease Past Surgical History: Procedure Laterality Date CARDIAC DEFIBRILLATOR PLACEMENT CHOLECYSTECTOMY INSERT / REPLACE / REMOVE PACEMAKER IR PICC LINE PLACEMENT > 5 YEARS N/A 06/05/2024 OTHER SURGICAL HISTORY 05/31/2024 GT/CARDIOVERSION Allergies Allergen Reactions Sulfa (Sulfonamide Antibiotics) Medications Prior to Admission Medication Sig Dispense Refill Last Dose albuterol HFA (PROVENTIL HFA,VENTOLIN HFA,PROAIR HFA) 90 mcg/actuation inhaler Inhale 2 puffs every6 (six) hours as needed for wheezing BASAGLAR 100 unit/mL (3 mL) pen for injection Inject 18 Units under the skin daily cholecalciferol (VITAMIN D-3) 5,000 unit tablet Take 1 tablet (5,000 Units total) by mouth daily docusate sodium (COLACE) 100 mg capsule Take 1 capsule (100 mg total) by mouth 2 (two) times a day Entresto 24-26 mg tablet Take 0.5 tablets by mouth 2 (two) times a day escitalopram (LEXAPRO) 10 mg tablet Take 1 tablet (10 mg total) by mouth daily Farxiga 10 mg tablet Take 1 tablet (10 mg total) by mouth daily ferrous sulfate 325 mg (65 mg of elemental iron) tablet Take 1 tablet (325 mg total) by mouth dailywith breakfast fluticasone propionate (FLONASE) 50 mcg/actuation nasal spray Administer 1 spray into each nostril daily as needed for rhinitis Gemtesa 75 mg tablet Take 1 tablet by mouth daily insulin lispro (HumaLOG) 100 unit/mL pen for injection Inject 8 Units under the skin 3 (three) times a day with meals (plus blood glucose mg/dL 150-199: 2 units, 200-249: 4 units, 250-299: 6 units, 300-349: 8 units, 350 or greater: 10 units. Notify provider for blood glucose greater than 299 mg/dL.Max daily dose 60) Refer to After Visit Summary for Sliding Scale Insulin Instructions. 15 mL 0 levothyroxine (SYNTHROID) 75 mcg tablet Take 1 tablet (75 mcg total) by mouth every morning magnesium oxide (MAG-OX) 400 mg (241.3 mg elemental magnesium) tablet Take 1 tablet (400 mg total) by mouth daily 30 tablet 0 metoprolol XL (TOPROL-XL) 50 mg extended release tablet Take 1 tablet (50 mg total) by mouth daily 30 tablet 0 midodrine (PROAMATINE) 5 mg tablet Take 1 tablet (5 mg total) by mouth 2 (two) times a day as needed (if systolic blood pressure less than 90mmHg) 30 tablet 0 multivit lnzdaqui-umhd-NM-calcium (THERA-M) 9 mg iron-400 mcg tablet Take 1 tablet by mouth daily nortriptyline (PAMELOR) 10 mg capsule Take 1 capsule (10 mg total) by mouth daily omeprazole (PriLOSEC) 20 mg capsule Take 1 capsule (20 mg total) by mouth daily pen needle, diabetic 32 gauge x needle Use as directed 3 times a day. 100 each 0 potassium chloride ER 20 mEq CR tablet Take 1 tablet (20 mEq total) by mouth daily Xarelto 20 mg tablet Take 1 tablet (20 mg total) by mouth daily with dinner Current Facility-Administered Medications Medication Dose Route Frequency Provider Last Rate Last Admin acetaminophen (TYLENOL) tablet 650 mg 650 mg oral Q4H PRN Marylou Saravia MD 650 mg at 07/11/24 0022 Carrier Fluids for Secondary Infusion - 0.9% Sodium Chloride 30 mL intravenous PRN Marylou Saravia MD ceFAZolin (ANCEF) 2,000 mg/20 mL in sterile water (premix) 2,000 mg 2,000 mg intravenous Q8H GALINA Marylou Saravia MD 2,000 mg at 07/11/24 1347 cyclobenzaprine (FLEXERIL) tablet 5 mg 5 mg oral TID PRN Marylou Saravia MD 5 mg at 07/11/24 1041 dextrose gel in packet 15 g 15 g oral Q15 Min PRN Marylou Saravia MD Or dextrose (D10W) 10% bolus 250 mL 250 mL intravenous Q15 Min PRN Marylou Saravia MD escitalopram (LEXAPRO) tablet 10 mg 10 mg oral Daily Marylou Saravia MD 10 mg at 07/11/24 1040 furosemide (LASIX) tablet 40 mg 40 mg oral Daily Marylou Saravia MD 40 mg at 07/11/24 1041 glucagon injection 1 mg 1 mg intramuscular Q30 Min PRN Marylou Saravia MD heparin 1,000 unit/mL injection 4,500 Units 40 Units/kg intravenous Q6H PRN Marylou Saravia MD 4,500 Units at 07/08/24 0637 Or heparin 1,000 unit/mL injection 9,100 Units 80 Units/kg intravenous Q6H PRN Marylou Saravia MD heparin in 0.45% sodium chloride 25,000 units/250 mL (100 units/mL) infusion (premix) 0-33 Units/kg/hr intravenous Titrated Marylou Saravia MD 17.04 mL/hr at 07/11/24 0521 15 Units/kg/hr at 07/11/24 0521 insulin glargine (LANTUS, SEMGLEE) 100 unit/mL injection 18 Units 18 Units subcutaneous QAM Marylou Saravia MD 18 Units at 07/11/24 1041 insulin lispro (HumaLOG, ADMELOG) 100 unit/mL injection 0-10 Units 0-10 Units subcutaneous TID withmeals Valentina Brown MD 6 Units at 07/11/24 1348 insulin lispro (HumaLOG, ADMELOG) 100 unit/mL injection 0-5 Units 0-5 Units subcutaneous Nightly Valentina Brown MD insulin lispro (HumaLOG, ADMELOG) 100 unit/mL injection 9 Units 9 Units subcutaneous TID with mealsValentina Brown MD levothyroxine (SYNTHROID) tablet 75 mcg 75 mcg oral Daily - 0600 Marylou Saravia MD 75 mcg at 07/11/24 0523 magnesium oxide (MAG-OX) tablet 400 mg 400 mg oral Daily Marylou Saravia MD 400 mg at 07/11/24 1041 metoprolol XL (TOPROL-XL) extended release tablet 50 mg 50 mg oral Daily Marylou Saravia MD 50 mg at 07/11/24 1041 mirabegron ER (MYRBETRIQ) extended release tablet 25 mg 25 mg oral Daily Marylou Saravia MD 25 mg at 07/11/24 1041 nortriptyline (PAMELOR) capsule 10 mg 10 mg oral Daily Marylou Saravia MD 10 mg at 07/11/24 1041 ondansetron ODT (ZOFRAN-ODT) disintegrating tablet 4 mg 4 mg oral Q6H PRN Marylou Saravia MD Or ondansetron (ZOFRAN) injection 4 mg 4 mg intravenous Q6H PRN Marylou Saravia MD pantoprazole DR (PROTONIX) extended release tablet 20 mg 20 mg oral Daily Marylou Saravia MD 20 mg at 07/11/24 1041 polyethylene glycol (MIRALAX) packet 17 g 17 g oral Daily PRN Marylou Saravia MD ramelteon (ROZEREM) tablet 8 mg 8 mg oral Nightly PRN Marylou Saravia MD 8 mg at 07/10/24 2157 sacubitriL-valsartan (ENTRESTO) 24-26 mg tablet 1 tablet 1 tablet oral BID Marylou Saravia MD 1 tablet at 07/11/24 1041 senna-docusate (PERICOLACE) 8.6-50 mg per tablet 1 tablet 1 tablet oral BID Marylou Saravia MD 1 tablet at 07/11/24 1041 sodium chloride 0.9% flush 0.5-20 mL 0.5-20 mL intra-catheter Q8H GALINA Marylou Saravia MD10 mL at 07/11/24 0524 sodium chloride 0.9% flush 0.5-20 mL 0.5-20 mL intra-catheter PRN Marylou Saravia MD sodium chloride 0.9% infusion 30 mL/hr intravenous Continuous Robert Messer MD 100 mL/hrat 07/10/24 1146 Rate Change at 07/10/24 1146 spironolactone (ALDACTONE) split tablet 12.5 mg 12.5 mg oral Daily Valentina Brown MD 12.5 mg at 07/11/24 1041 No family history on file. Social History Tobacco Use Smoking status: Never Smokeless tobacco: Never Substance and Sexual Activity Drug use: None Sexual activity: None Alcohol Use: Not At Risk (06/01/2024) AUDIT-C Frequency of Alcohol Consumption: Never Average Number of Drinks: Patient does not drink Frequency of Binge Drinking: Never Social History: No cigarette use, lives alone nearby Nephew Review of Systems: ROS was obtained and all negative except as is noted in HPI. Objective Vitals: Arrival Vitals Temp 07/07/24 0015 36.2 ??C (97.2 ??F) Pulse 07/07/24 0015 92 Resp 07/07/24 0015 18 BP 07/07/24 0015 126/65 SpO2 07/07/24 0015 94 % Temp src 07/07/24 0724 Oral Heart Rate Source 07/07/24 0015 Monitor Patient Position 07/07/24 0830 Sitting BP Location 07/07/24 0015 Right arm FiO2 (%) 07/08/24 2200 21 % Most Recent : Vitals: 07/11/24 1041 BP: Pulse: 91 Resp: Temp: SpO2: I/O last 2 completed shifts: In: 586.3 [P.O.:450; I.V.:136.3] Out: 0 I/O this shift: In: - Out: 425 [Urine:425] Physical exam: Constitutional: Appears comfortable. No acute distress. Neuro: Alert and oriented x3. No gross focal deficits. CVS: irregularly irregular. ICD present and left chest, nontender to palpation Resp: Non-labored breathing, symmetric chest wall movements Abdomen: Soft, non-distended, non-tender Extremities: No rashes, no significant edema Neuromuscular: Motor strength grossly normal all 4 extremities Pulses: Right Radial: palpable Right Femoral: palpable Left Radial: palpable Left Femoral: palpable Lab/Radiology/Diagnostic Review: Laboratory review: Lab results in the last 12 hours: Recent Results (from the past 12 hour(s)) POCT glucose Collection Time: 07/11/24 7:27 AM Result Value Ref Range Glucose, POC 238 (H) 70 - 199 mg/dL POCT glucose Collection Time: 07/11/24 11:36 AM Result Value Ref Range Glucose, POC 275 (H) 70 - 199 mg/dL Assessment/Plan: 63-year-old female with recurrent MSSA bacteremia, concern for spinal osteomyelitis and bacterial seeding of her ICD, with plans for ICD explantation this admission. Vascular surgery is consulted forbacterial vegetations on her tricuspid valve, with consideration for AngioVac - multidisciplinary discussions between vascular and cardiac surgery for potential AngioVac this admission. Discussed with patient's sister. - Vascular surgery will continue to follow. Please call [phone] with vascular consult questions 02/05. The recommendations above have been discussed with attending physician. Any changes will be communicated to the primary team. Tim Strong MD Resident Physician Vascular Surgery Vascular Consult Vascular Inpatient Floor V[facility] Outpatient [facility] Cosigned by Luh Mccurdy MD PhD at 07/17/2024 8:37 AM CDT Associated attestation - Luh Mccurdy MD PhD - 07/17/2024 8:37 AM CDT I have seen and examined the patient on 07/11/24. I agree with the findings and plan of care as documented in the resident's/fellow's note. We will review the patient's candidacy for AngioVac for her tricuspid vegetations as a vascular group with CT surgery. * Alyx Gagnon MD - 07/07/2024 3:41 PM CDTAssociated Order(s): IP CONSULT TO ELECTROPHYSIOLOGY Cardiology Consult Note - Electrophysiology Patient Name: Lei Rodriguez : 1960 Date of Service: 07/07/24 Requesting Attending: Elvira Cooper MD Reason for Consult: Chief Complaint: Implantable cardiac device infection HPI Lei Rodriguez is a 63 y.o. female with a history of atrial fibrillation, heart failure with reduced ejection fraction, type 2 diabetes mellitus, intellectual disability, hypothyroidism was admitted for persistent bacteremia and possible endocarditis. Electrophysiology has been consulted for ICD infection. Patient had initially presented to [facility] in May 2024 with complaints of left-sided abdominal pain, nausea, vomiting and diarrhea with intermittent fever. At that time, blood cultures drawn 811, 812, 813 all positive for Staphylococcus aureus. GT obtained 05/28 showed a small vegetation about 2 mm in size on the septal tricuspid valve leaflet and seen prolapsing into the right atrium in systole given with a tricuspid valve endocarditis. Device is a [employer] ICD, interrogation done on 05/20 showed 99.3% atrial fibrillation burden between 09/26/2023 to 05/20/2024. Advise VT zones as follows VT monitor zone 150 beats per minute, VT 1 182 beats per minute, VFib zone 222 beats per minute. At that time, there were no VT or VF episodes.She had a PICC line placed on 05/29/2024. She was later transferred to [facility] on 05/29/2024 . Repeat TTE done on 05/31 showed that the atrial appendage thrombus as well as wire versus catheter in the right pulmonary artery. ID evaluation during a recent noticed hospital stay recommended continuation of IV antibiotics. Blood cultures obtained 05/31 grew MSSA . Transthoracic echocardiogr ams done at the time showed ejection fraction 30%. Patient was eventually discharged on dofetilide 500 mcg b.i.d. for attempt at rhythm control after in hospital load. She was discharged to the snf on 06/08/2024. While at the snf, she started having nausea, vomiting with associated headaches. She then felt dizzy had an episode of falling forward and hitting her head. EMS was called and patient was transferred to [facility] then to [facility]. Interrogation at [facility] revealed that she had 5 episodes of ventricular fibrillation that were appropriately treated with ICD shocks. On admission, dofetilide was discontinued and her escitalopram was also reduced. New setof blood cultures will obtained on 06/13/2024 given low-grade fever pre and she was then dischargedon 06/21 back to her snf. However, she re- presented appropriate severe low back pain. CT spine did not show evidence of osteomyelitis however MRI was recommended and patient was referred to [place] for cardiac MRI given the presence of an implantable cardiac device. Patient seen at the bedside, cmplains of lower back and flank pain. Not able to give much history Review of Systems: Review of systems as per HPI and, otherwise all other systems are negative. PMHX: has a past medical history of A-fib (CMS/HCC) ([facility]), CHF (congestive heart failure) (CMS/HCC)([facility]), Diabetes mellitus ([facility]), GERD (gastroesophageal reflux disease), Hypertension, Intellectual disability, OAB (overactive bladder), Sleep apnea, and Thyroid disease. PSHX: has a past surgical history that includes Cardiac defibrillator placement; Insert / replace /remove pacemaker; Cholecystectomy; Other surgical history (05/31/2024); and IR PICC Line Placement Over 5 Years of Age (N/A, 06/05/2024). Family Hx: family history is not on file. Social Hx: reports that she has never smoked. She has never used smokeless tobacco. Allergies: Allergies Allergen Reactions Sulfa (Sulfonamide Antibiotics) Home Medications: HOME MEDICATIONS : albuterol HFA (PROVENTIL HFA,VENTOLIN HFA,PROAIR HFA) 90 mcg/actuation inhaler BASAGLAR 100 unit/mL (3 mL) pen for injection cholecalciferol (VITAMIN D-3) 5,000 unit tablet docusate sodium (COLACE) 100 mg capsule Entresto 24-26 mg tablet escitalopram (LEXAPRO) 10 mg tablet Farxiga 10 mg tablet ferrous sulfate 325 mg (65 mg of elemental iron) tablet fluticasone propionate (FLONASE) 50 mcg/actuation nasal spray Gemtesa 75 mg tablet insulin lispro (HumaLOG) 100 unit/mL pen for injection levothyroxine (SYNTHROID) 75 mcg tablet magnesium oxide (MAG-OX) 400 mg (241.3 mg elemental magnesium) tablet metoprolol XL (TOPROL-XL) 50 mg extended release tablet midodrine (PROAMATINE) 5 mg tablet multivit fohbdrkk-kzex-YY-calcium (THERA-M) 9 mg iron-400 mcg tablet nortriptyline (PAMELOR) 10 mg capsule omeprazole (PriLOSEC) 20 mg capsule ondansetron (ZOFRAN) 4 mg tablet pen needle, diabetic 32 gauge x 5/32 needle potassium chloride ER 20 mEq CR tablet Xarelto 20 mg tablet Current Medications: ceFAZolin, 2,000 mg, intravenous, Q8H GALINA escitalopram, 10 mg, oral, Daily furosemide, 40 mg, oral, Daily insulin glargine, 18 Units, subcutaneous, QAM insulin lispro, 0-4 Units, subcutaneous, Nightly insulin lispro, 0-5 Units, subcutaneous, TID with meals insulin lispro, 6 Units, subcutaneous, TID with meals levothyroxine, 75 mcg, oral, Daily - 0600 magnesium oxide, 400 mg, oral, Daily metoprolol XL, 50 mg, oral, Daily mirabegron ER, 25 mg, oral, Daily nortriptyline, 10 mg, oral, Daily pantoprazole DR, 20 mg, oral, Daily sacubitriL-valsartan, 1 tablet, oral, BID senna-docusate, 1 tablet, oral, BID sodium chloride 0.9%, 0.5-20 mL, intra-catheter, Q8H GALINA heparin, 0-33 Units/kg/hr, Last Rate: 13 Units/kg/hr (07/07/24 1421) Objective Vital Signs: 24hr Min/Max: Temp Min: 36.2 ??C (97.2 ??F) Max: 36.8 ??C (98.2 ??F) Pulse Min: 86 Max: 96 BP Min: 110/60 Max: 126/65 Resp Min: 18 Max: 20 SpO2 Min: 93 % Max: 95 % Most Recent: Vitals: 07/07/24 1505 BP: 113/74 Pulse: 86 Resp: 20 Temp: 36.8 ??C (98.2 ??F) SpO2: 95% Intake/Output: Intake/Output Summary (Last 24 hours) at 07/07/2024 1548 Last data filed at 07/07/2024 1505 Gross per 24 hour Intake 750 ml Output 400 ml Net 350 ml Physical Exam: General appearance: no acute distress, obese HEENT: NCAT, MMM, anicteric Lungs: CTAB, no w/r/r, non-labored Heart: RRR, S1, S2 normal, no murmur, rub or gallop. JVP not elevated, no LE edema Abdomen: soft, NT/ND; bowel sounds normal Extremities: extremities normal, warm and well-perfused, equal pulses Skin: warm and dry Neurologic: No abnormal movements, non-focal exam Psych: Normal mood and affect Lab/Radiology/Diagnostic Review: Labs: Recent Labs Lab Units 07/07/24 0134 HEMOGLOBIN g/dL 10.8* HEMATOCRIT % 33.2* WBC K/cumm 7.7 PLATELETS K/cumm 339 Recent Labs Lab Units 07/07/24 013 SODIUM mmol/L 136 POTASSIUM PLASMA mmol/L See Comment CHLORIDE mmol/L 99 CO2 mmol/L 29 ANIONGAP mmol/L 8 BUN SERUM mg/dL 15 CREATININE mg/dL 0.65 CALCIUM mg/dL 8.9 MAGNESIUM mg/dL 1.9 Recent Labs Lab Units 07/07/24133 ALBUMIN g/dL 3.0* ALK PHOS Units/L 182* AST Units/L See Comment ALT Units/L See Comment BILIRUBIN TOTAL mg/dL 0.4 Recent Labs Lab Units 07/07/24 1247 07/07/24133 APTT sec 108* 28 INR -- 1.47* Cultures: Lab Results Component Value Date MICROBIOLOGY Final Report: No growth 06/13/2024 MICROBIOLOGY Final Report: No growth 06/13/2024 MICROBIOLOGY Final Report: No growth 05/30/2024 MICROBIOLOGY Final Report: No growth 05/30/2024 MICROBIOLOGY 02/28/2017 Final Report: Insignificant growth based on current clinical standards. I personally reviewed the Telemetry images with the following findings: Atrial fibrillation with normal VR I personally reviewed the ECG images with the following findings: Afib TTE: Mildly dilated LV, moderate to severe LV systolic dysfunction, EF=30%. Normal RV size and function. Mild biatrial enlargement. Normal IVC. Normal size aortic root. Mild MR, AR, TR. Small (9x7mm), modile echodensity attached to the V lead at the atrial level just proximal to TV, consider thrombus vs. vegetation. Cannot exclude involvement of TV. Consider GT to further evaluate. Assessment/Plan Ms. Rodriguez is a 63 y.o. female with a history of atrial fibrillation, heart failure with reduced ejection fraction, type 2 diabetes mellitus, intellectual disability, hypothyroidism was admitted for persistent bacteremia and possible endocarditis. Electrophysiology has been consulted for ICD infection. #ICD infection #VF with appropriate ICD shock -Patient with MSSA bacteremia and vegetation on RV lead -Agree with GT for further workup, regardless, will likely need lead and device extraction. -Appreciate inputs from CTS and ID -Continue antibiotics -Given appropriated ICD shock(reviewed EGMs, 2 fast VT episodes with CL 295, treated with ATP successfully and ATP+shock.. 3 episodes in VF zone shocked appropriately), will need device reimplant, will likely favor SICD We appreciate the ability to be involved in this patient's care. If after 5PM or on weekends, please page the brick chimney supervisor marketing rotation associate with any questions or concerns. Alyx Gagnon MD Abr[employer] Sawyer 3:48 PM 07/07/24 Cosigned by Kt Callejas MD at 07/09/2024 6:53 AM CDT Associated attestation - Kt Callejas MD - 07/09/2024 6:53 AM CDT Attending Documentation I have seen and examined the patient on 07/08/2024. I agree with the findings and plan of care as documented in the resident's/fellow's note. She will need reimplant prior to discharge after extraction. Will offer a right sided transvenous device (prefer to avoid SICD given body habitus). No need for temporary pacing after extraction Supplementary Attestation Today, I am treating the patient for endocarditis which is in severe exacerbation, progression, or experiencing treatment side effects as evidenced by the need for device extraction, as described in the note. Independently interpreted test device interrogation which shows appropriate shocks for VF. Discussed management of endocarditis with Dr. Felix Discussed management of endocarditis with physician/JUAN/appropriate team Dr. Lucy Callejas MD 07/09/2024 6:50 AM * Trent Ureña MD - 07/07/2024 2:53 PM CDT Cardiothoracic Surgery Consult Lei Calderon Isamar 1960 Reason for Consult: Infected ICD Physician Referring: Elvira Cooper MD Chief Complaint: No chief complaint on file. HPI: Lei Rodriguez is 63 y.o. White female with history of Afib, HFrEF, T2DM, intellectual disability, GERD, hypothyroidism who presented to OSH initially on 06/28 with complaint of back pain. Information taken from chart review. Patient initially presented to OSH in May with bacteremia and was transferred to [facility] for endocarditis workup. TTE and GT were negative for vegetations on valved or ICD leads, however did show MAULIK thrombus. She was treated with ancef x4 weeks. She represented to OSH with complaint of back pain and was found to have positive blood cultures for MSSA. Given back pain concern for ostemyelitis, however MRI unable to be done. Patient transferred to [facility] for further care. She was started on ancef and heparin and repeat cultures drawn. She is stable on the floor. HOME MEDICATIONS : albuterol HFA (PROVENTIL HFA,VENTOLIN HFA,PROAIR HFA) 90 mcg/actuation inhaler BASAGLAR 100 unit/mL (3 mL) pen for injection cholecalciferol (VITAMIN D-3) 5,000 unit tablet docusate sodium (COLACE) 100 mg capsule Entresto 24-26 mg tablet escitalopram (LEXAPRO) 10 mg tablet Farxiga 10 mg tablet ferrous sulfate 325 mg (65 mg of elemental iron) tablet fluticasone propionate (FLONASE) 50 mcg/actuation nasal spray Gemtesa 75 mg tablet insulin lispro (HumaLOG) 100 unit/mL pen for injection levothyroxine (SYNTHROID) 75 mcg tablet magnesium oxide (MAG-OX) 400 mg (241.3 mg elemental magnesium) tablet metoprolol XL (TOPROL-XL) 50 mg extended release tablet midodrine (PROAMATINE) 5 mg tablet multivit wbfmbkqe-kpdr-XB-calcium (THERA-M) 9 mg iron-400 mcg tablet nortriptyline (PAMELOR) 10 mg capsule omeprazole (PriLOSEC) 20 mg capsule ondansetron (ZOFRAN) 4 mg tablet pen needle, diabetic 32 gauge x needle potassium chloride ER 20 mEq CR tablet Xarelto 20 mg tablet Current Facility-Administered Medications: acetaminophen (TYLENOL) tablet 650 mg, 650 mg, oral, Q4H PRN, 650 mg at 07/07/24 1036 Carrier Fluids for Secondary Infusion - 0.9% Sodium Chloride, 30 mL, intravenous, PRN ceFAZolin (ANCEF) 2,000 mg/20 mL in sterile water (premix) 2,000 mg, 2,000 mg, intravenous, Q8H GALINA, 2,000 mg at 07/07/24 1427 cyclobenzaprine (FLEXERIL) tablet 5 mg, 5 mg, oral, TID PRN dextrose gel in packet 15 g, 15 g, oral, Q15 Min PRN OR dextrose (D10W) 10% bolus 250 mL, 250 mL, intravenous, Q15 Min PRN escitalopram (LEXAPRO) tablet 10 mg, 10 mg, oral, Daily, 10 mg at 07/07/24 1044 furosemide (LASIX) tablet 40 mg, 40 mg, oral, Daily, 40 mg at 07/07/24 1034 glucagon injection 1 mg, 1 mg, intramuscular, Q30 Min PRN heparin 1,000 unit/mL injection 4,500 Units, 40 Units/kg, intravenous, Q6H PRN OR heparin 1,000unit/mL injection 9,100 Units, 80 Units/kg, intravenous, Q6H PRN heparin in 0.45% sodium chloride 25,000 units/250 mL (100 units/mL) infusion (premix), 0-33 Units/kg/hr, intravenous, Titrated, Last Rate: 14.77 mL/hr at 07/07/24 1421, 13 Units/kg/hr at 07/07/24 1421 insulin glargine (LANTUS, SEMGLEE) 100 unit/mL injection 18 Units, 18 Units, subcutaneous, QAM, 18 Units at 07/07/24 1018 insulin lispro (HumaLOG, ADMELOG) 100 unit/mL injection 0-4 Units, 0-4 Units, subcutaneous, Nightly insulin lispro (HumaLOG, ADMELOG) 100 unit/mL injection 0-5 Units, 0-5 Units, subcutaneous, TID with meals, 3 Units at 07/07/24 1238 insulin lispro (HumaLOG, ADMELOG) 100 unit/mL injection 6 Units, 6 Units, subcutaneous, TID with meals, 6 Units at 07/07/24 1238 levothyroxine (SYNTHROID) tablet 75 mcg, 75 mcg, oral, Daily - 0600, 75 mcg at 07/07/24 0543 magnesium oxide (MAG-OX) tablet 400 mg, 400 mg, oral, Daily, 400 mg at 07/07/24 1038 metoprolol XL (TOPROL-XL) extended release tablet 50 mg, 50 mg, oral, Daily, 50 mg at 07/07/24 1039 mirabegron ER (MYRBETRIQ) extended release tablet 25 mg, 25 mg, oral, Daily, 25 mg at 07/07/24 1035 nortriptyline (PAMELOR) capsule 10 mg, 10 mg, oral, Daily, 10 mg at 07/07/24 1033 ondansetron ODT (ZOFRAN-ODT) disintegrating tablet 4 mg, 4 mg, oral, Q6H PRN OR ondansetron (ZOFRAN) injection 4 mg, 4 mg, intravenous, Q6H PRN pantoprazole DR (PROTONIX) extended release tablet 20 mg, 20 mg, oral, Daily, 20 mg at 07/07/24 1038 polyethylene glycol (MIRALAX) packet 17 g, 17 g, oral, Daily PRN ramelteon (ROZEREM) tablet 8 mg, 8 mg, oral, Nightly PRN sacubitriL-valsartan (ENTRESTO) 24-26 mg tablet 1 tablet, 1 tablet, oral, BID, 1 tablet at 035 senna-docusate (PERICOLACE) 8.6-50 mg per tablet 1 tablet, 1 tablet, oral, BID, 1 tablet at 07/07/24 1044 sodium chloride 0.9% flush 0.5-20 mL, 0.5-20 mL, intra-catheter, Q8H GALINA, 10 mL at 07/07/24 1428 sodium chloride 0.9% flush 0.5-20 mL, 0.5-20 mL, intra-catheter, PRN Allergies Allergen Reactions Sulfa (Sulfonamide Antibiotics) Past Medical History: Diagnosis Date A-fib (CMS/HCC) (HCC) CHF (congestive heart failure) (CMS/HCC) (HCC) Diabetes mellitus (HCC) GERD (gastroesophageal reflux disease) Hypertension Intellectual disability OAB (overactive bladder) Sleep apnea Thyroid disease Past Surgical History: Procedure Laterality Date CARDIAC DEFIBRILLATOR PLACEMENT CHOLECYSTECTOMY INSERT / REPLACE / REMOVE PACEMAKER IR PICC LINE PLACEMENT > 5 YEARS N/A 06/05/2024 OTHER SURGICAL HISTORY 05/31/2024 GT/CARDIOVERSION No family history on file. Social History Tobacco Use Smoking status: Never Smokeless tobacco: Never Substance and Sexual Activity Drug use: Not on file Sexual activity: Not on file Alcohol Use: Not At Risk (06/01/2024) AUDIT-C Frequency of Alcohol Consumption: Never Average Number of Drinks: Patient does not drink Frequency of Binge Drinking: Never Review of Systems - Review of Systems negative except those described in HPI and below: Review of Systems Constitutional: Positive for activity change and chills. Negative for fever. Respiratory: Negative for chest tightness and shortness of breath. Cardiovascular: Negative for chest pain and leg swelling. Vital Signs: Vitals: 07/07/24 1036 BP: 110/60 Pulse: 96 Resp: Temp: SpO2: Cardiac Rhythm: Atrial fibrillation (07/07/24 0915) Body surface area is 2.28 meters squared. No intake/output data recorded. Physical Exam Constitutional: General: She is not in acute distress. Appearance: Normal appearance. She is not toxic-appearing. HENT: Head: Normocephalic and atraumatic. Eyes: Extraocular Movements: Extraocular movements intact. Cardiovascular: Rate and Rhythm: Normal rate and regular rhythm. Comments: ICD on left chest, no TTP or erythema Pulmonary: Effort: Pulmonary effort is normal. Breath sounds: Normal breath sounds. Abdominal: General: Abdomen is flat. Palpations: Abdomen is soft. Tenderness: There is no abdominal tenderness. Musculoskeletal: Cervical back: Normal range of motion. Right lower leg: No edema. Left lower leg: No edema. Skin: General: Skin is warm and dry. Neurological: General: No focal deficit present. Mental Status: She is alert. Labs: Reviewed. Recent Labs Lab Units 07/07/24 0134 WBC K/cumm 7.7 HEMOGLOBIN g/dL 10.8* HEMATOCRIT % 33.2* PLATELETS K/cumm 339 Recent Labs Lab Units 07/07/24 1233 07/07/24 0723 07/07/24 0134 SODIUM mmol/L -- -- 136 POTASSIUM PLASMA mmol/L -- -- See Comment CHLORIDE mmol/L -- -- 99 CO2 mmol/L -- -- 29 ANIONGAP mmol/L -- -- 8 GLUCOSE mg/dL -- -- 186 POC GLUCOSE MONITOR mg/dL 272* < > -- BUN SERUM mg/dL -- -- 15 CREATININE mg/dL -- -- 0.65 CALCIUM mg/dL -- -- 8.9 ALBUMIN g/dL -- -- 3.0* ALK PHOS Units/L -- -- 182* ALT Units/L -- -- See Comment AST Units/L -- -- See Comment BILIRUBIN TOTAL mg/dL -- -- 0.4 < > = values in this interval not displayed. Imaging: Head CT Outside Consult Head CT: No large acute territory infarct and no acute intracranial hemorrhage. Moderate to severe microvascular ischemic disease without prior imaging to assess stability. CT total spine: No CT evidence of osteomyelitis however this does not exclude the diagnosis; an MR spine is recommended for further evaluation. Mediastinal adenopathy, cardiomegaly, pericardial effusion and lung nodules are better evaluated on concurrent CT chest, abdomen and pelvis. CT CAP wo Outside Consult IMPRESSION: 1. New bilateral pulmonary nodules which have developed since 05/30/2024 and in the setting of bacteremia may represent septic emboli. 2. No acute process in the abdomen or pelvis or CT explanation for back pain TTE 07/07 SUMMARY: Mildly dilated LV, moderate to severe LV systolic dysfunction, EF=30%. Normal RV size and function. Mild biatrial enlargement. Normal IVC. Normal size aortic root. Mild MR, AR, TR. Small (9x7mm), modile echodensity attached to the V lead at the atrial level just proximal to TV, consider thrombus vs. vegetation. Cannot exclude involvement of TV. Consider GT to further evaluate. Assessment and Plan: 63F with history of Afib, HFrEF, T2DM, intellectual disability, GERD, hypothyroidism with concern for infection of ICD. -Imaging reviewed, agree with GT -Appreciate ID/EP recs -Timing of removal pending GT This patient has been discussed with Dr. Sinclair, who agrees with the assessment and plan above. Thank you for allowing us to participate in the care of this patient. We will continue to follow. Trent Ureña MD Fellow, Cardiothoracic Surgery [facility] [employer] Cosigned by Debra Sinclair MD at 07/08/2024 9:56 AM CDT * Eric Magaña MD - 07/07/2024 10:12 AM CDTAssociated Order(s): CONSULT TO GENERAL INFECTIOUS DISEASE Infectious Disease Initial Consult Note Infectious Disease Team: General 1 Contact Information: Please see [facility] Treatment Team listing for up-to-date contact information. Requesting Physician: Elvira Cooper MD Reason for Consult: Diagnostic and treatment recommendations, as well as assistance with follow up care. Subjective Chief Complaint: MSSA bacteremia HPI: The patient is a 63 y.o. female with a history of persistent Afib, IDDM2, HFrEF s/p AICD, hypothyroidism, intellectual disability, overactive bladder c/b recurrent UTI, JOSE, GERD, and recent MSSA bacteremia s/p treatment, who is currently admitted with recurrent MSSA bacteremia. History was mainly obtained via OSH records (which are limited) and admission H&P due to patient's intellectual disability. Regarding patient's prior history of bacteremia, she initially presented to [facility] on 05/21 with complaints of nausea/vomiting and abdominal pain. She was found to have MSSA bacteremia (cultures positive 05/21-05/22, first negative 05/25) and a report of endocarditis, for which she was transferred to [facility] on 05/29 for further care. There, additional workup with GT showed no evidence of endocarditis but did reveal a dislodged ICD lead/wire in the pulmonary artery and a left atrial appendage thrombus. She was seen by ID who recommended continuation of antibiotics with cefazolin through 06/21 to complete a four week treatment course. Shortly following antibiotic completion, she began experiencing recurrent nausea/vomiting and back/flank pain (unclear if new or chronic). Her sister Dilia, who serves as her primary caregiver, was concerned for a recurrent UTI so she brought her to [facility] on 06/28 for evaluation where she was admitted for Afib with RVR. On 07/01 blood cultures were obtained (unclear why) that were positive for MSSA. Follow up cultures from 07/02 were no growth (confirmed with [place] [facility]). Imaging with CT spine did not show any clear osseous involvement, however there was still concern for possible osteomyelitis so she was transferred here overnight [facility]. Additional CT imaging obtained prior totransfer (and reread here) revealed new bilateral pulmonary nodules suspicious for septic pulmonaryemboli. This afternoon patient was seen while sitting up comfortably in a recliner. She reports ongoing discomfort located over her right cervical and lumbar spine, but is unable to characterize how long shehas been struggling with this pain or whether it has improved while on antibiotics. Furthermore, she cannot recall why she was brought to [facility] but says her sister Dilia can answer any questions related to her health. She reports some ongoing discomfort around her ICD site. Antibiotics Vancomycin (07/01-07/03) Cefazolin (07/01-present) Past Medical History: No date: A-fib ([facility]) ([facility]) No date: CHF (congestive heart failure) ([facility]) ([facility]) No date: Diabetes mellitus ([facility]) No date: GERD (gastroesophageal reflux disease) No date: Hypertension No date: Intellectual disability No date: OAB (overactive bladder) No date: Sleep apnea No date: Thyroid disease Past Surgical History: No date: CARDIAC DEFIBRILLATOR PLACEMENT No date: CHOLECYSTECTOMY No date: INSERT / REPLACE / REMOVE PACEMAKER 06/05/2024: IR PICC LINE PLACEMENT > 5 YEARS; N/A 05/31/2024: OTHER SURGICAL HISTORY Comment: GT/[facility] MEDICATION[facility] : albuterol HFA (PROVENTIL HFA,VENTOLIN HFA,PROAIR HFA) 90 mcg/actuation inhaler BASAGLAR 100 unit/mL (3 mL) pen for injection cholecalciferol (VITAMIN D-3) 5,000 unit tablet docusate sodium (COLACE) 100 mg capsule Entresto 24-26 mg tablet escitalopram (LEXAPRO) 10 mg tablet Farxiga 10 mg tablet ferrous sulfate 325 mg (65 mg of elemental iron) tablet fluticasone propionate (FLONASE) 50 mcg/actuation nasal spray Gemtesa 75 mg tablet insulin lispro (HumaLOG) 100 unit/mL pen for injection levothyroxine (SYNTHROID) 75 mcg tablet magnesium oxide (MAG-OX) 400 mg (241.3 mg elemental magnesium) tablet metoprolol XL (TOPROL-XL) 50 mg extended release tablet midodrine (PROAMATINE) 5 mg tablet multivit unvmtlcy-osfq-FQ-calcium (THERA-M) 9 mg iron-400 mcg tablet nortriptyline (PAMELOR) 10 mg capsule omeprazole (PriLOSEC) 20 mg capsule ondansetron (ZOFRAN) 4 mg tablet pen needle, diabetic 32 gauge x 5/32 needle potassium chloride ER 20 mEq CR tablet Xarelto 20 mg tablet Current Facility-Administered Medications Ordered in Epic Medication Dose Route Frequency Provider Last Rate Last Admin acetaminophen (TYLENOL) tablet 650 mg 650 mg oral Q4H PRN Marylou Saravia MD Carrier Fluids for Secondary Infusion - 0.9% Sodium Chloride 30 mL intravenous PRN Marylou Saravia MD ceFAZolin (ANCEF) 2,000 mg/20 mL in sterile water (premix) 2,000 mg 2,000 mg intravenous Q8H GALINA Marylou Saravia MD 2,000 mg at 07/07/24 0543 cyclobenzaprine (FLEXERIL) tablet 5 mg 5 mg oral TID PRN Marylou Saravia MD dextrose gel in packet 15 g 15 g oral Q15 Min PRN Marylou Saravia MD Or dextrose (D10W) 10% bolus 250 mL 250 mL intravenous Q15 Min PRN Marylou Saravia MD escitalopram (LEXAPRO) tablet 10 mg 10 mg oral Daily Marylou Saravia MD furosemide (LASIX) tablet 40 mg 40 mg oral Daily Marylou Saravia MD glucagon injection 1 mg 1 mg intramuscular Q30 Min PRN Marylou Saravia MD heparin 1,000 unit/mL injection 4,500 Units 40 Units/kg intravenous Q6H PRN Marylou Saravia MD Or heparin 1,000 unit/mL injection 9,100 Units 80 Units/kg intravenous Q6H PRN Marylou Saravia MD heparin in 0.45% sodium chloride 25,000 units/250 mL (100 units/mL) infusion (premix) 0-33 Units/kg/hr intravenous Titrated Marylou Saravia MD 15.9 mL/hr at 07/07/24 0632 14 Units/kg/hr at07/07/24 0632 insulin glargine (LANTUS, SEMGLEE) 100 unit/mL injection 18 Units 18 Units subcutaneous QAM Marylou Saravia MD insulin lispro (HumaLOG, ADMELOG) 100 unit/mL injection 0-4 Units 0-4 Units subcutaneous Nightly Marylou Saravia MD insulin lispro (HumaLOG, ADMELOG) 100 unit/mL injection 0-5 Units 0-5 Units subcutaneous TID with meals Marylou Saravia MD insulin lispro (HumaLOG, ADMELOG) 100 unit/mL injection 6 Units 6 Units subcutaneous TID with mealsCoMarylou king MD levothyroxine (SYNTHROID) tablet 75 mcg 75 mcg oral Daily - 0600 Marylou Saravia MD 75 mcg at 07/07/24 0543 magnesium oxide (MAG-OX) tablet 400 mg 400 mg oral Daily Marylou Saravia MD metoprolol XL (TOPROL-XL) extended release tablet 50 mg 50 mg oral Daily Marylou Saravia MD mirabegron ER (MYRBETRIQ) extended release tablet 25 mg 25 mg oral Daily Marylou Saravia MD nortriptyline (PAMELOR) capsule 10 mg 10 mg oral Daily Marylou Saravia MD ondansetron ODT (ZOFRAN-ODT) disintegrating tablet 4 mg 4 mg oral Q6H PRN Marylou Saravia MD Or ondansetron (ZOFRAN) injection 4 mg 4 mg intravenous Q6H PRN Marylou Saravia MD pantoprazole DR (PROTONIX) extended release tablet 20 mg 20 mg oral Daily Marylou Saravia MD polyethylene glycol (MIRALAX) packet 17 g 17 g oral Daily PRN Marylou Saravia MD ramelteon (ROZEREM) tablet 8 mg 8 mg oral Nightly PRN Marylou Saravia MD sacubitriL-valsartan (ENTRESTO) 24-26 mg tablet 1 tablet 1 tablet oral BID Marylou Saravia MD senna-docusate (PERICOLACE) 8.6-50 mg per tablet 1 tablet 1 tablet oral BID Marylou Saravia MD sodium chloride 0.9% flush 0.5-20 mL 0.5-20 mL intra-catheter Q8H GALINA Marylou Saravia MD10 mL at 07/07/24 0544 sodium chloride 0.9% flush 0.5-20 mL 0.5-20 mL intra-catheter PRN Marylou Saravia MD No current [facility]-ordered outpatient medications on file. Anti-infectives (From admission, onward) Start Dose/Rate Route Frequency Ordered Stop 07/07/24 0600 ceFAZolin (ANCEF) 2,000 mg/20 mL in sterile water (premix) 2,000 mg 2,000 mg 400 mL/hr over 3 Minutes intravenous Every 8 hours scheduled 07/07/24 0307 Active Lines/Ports/Devices: Peripheral IV 07/06/24 Anterior;Left Hand (Active) Number of days: 1 Patient Allergies: Allergies Allergen Reactions Sulfa (Sulfonamide Antibiotics) Social History Social History Narrative Not on file reports that she has never smoked. She has never used smokeless tobacco. Patient denies consuming alcoholic drinks. Family history reviewed and non-contributory No family history on file. Review of Systems: Review of Systems Constitutional: Negative for chills and fever. Cardiovascular: Negative for chest pain. Gastrointestinal: Negative for diarrhea, nausea and vomiting. Musculoskeletal: Positive for back pain. All other systems reviewed and are negative. Objective Vitals: 24hr Min/Max: Temp Min: 36.2 ??C (97.2 ??F) Max: 36.8 ??C (98.2 ??F) Pulse Min: 90 Max: 96 BP Min: 120/68 Max: 126/65 Resp Min: 18 Max: 18 SpO2 Min: 93 % Max: 94 % Most Recent : Vitals: 07/07/24 0830 BP: 120/68 Pulse: 96 Resp: 18 Temp: 36.6 ??C (97.9 ??F) SpO2: 93% Vitals: 07/07/24 0050 07/07/24 0700 07/07/24 0724 07/07/24 0830 BP: 121/57 120/68 BP Location: Right arm Right arm Pulse: 90 91 96 Resp: 18 18 Temp: 36.8 ??C (98.2 ??F) 36.6 ??C (97.9 ??F) TempSrc: Oral Oral SpO2: 93% 93% Weight: 113.6 kg (250 lb 8 oz) No intake/output data recorded. Physical Exam: Constitutional: NAD, well developed, well nourished, resting comfortably in recliner Eyes: EOMI, anicteric. HENT: NCAT. Lungs: Clear to auscultation in all lung cuadra, unlabored, no wheezes Cardiovascular: Irregular, no murmurs GI: Soft, non-tender, non-distended, bowel sounds positive Skin: No rashes, lesions or bruises, no stigmata of endocarditis, no evidence of infection around ICD insertion site Extremities: Normal without edema or cyanosis MSK: Pinpoint lumbar spinal tenderness Neurologic: No gross deficits Psychiatric: Appropriate affect and mood. Pleasant. Lab/Radiology/Diagnostic Review: I reviewed the following laboratory and imaging result(s). Micro: Lab Results Component Value Date MICROBIOLOGY Final Report: No growth 06/13/2024 MICROBIOLOGY Final Report: No growth 06/13/2024 MICROBIOLOGY Final Report: No growth 05/30/2024 MICROBIOLOGY Final Report: No growth 05/30/2024 MICROBIOLOGY 02/28/2017 Final Report: Insignificant growth based on current clinical standards. Urinalysis: Resulted in the Past 12 Months 06/26/24 0859 COLORU Yellow CLARITYU Clear SPECGRAVU >1.050* PHURINE 5.0 PROTURQL Negative GLUCOSEUR 4+* KETONESU Trace BLOODUR 3+* NITRITEU Negative LEUKESTUR Negative Hematology/Chemistry: CBC: Lab Results Component Value Date WBC 7.7 07/07/2024 HGB 10.8 (L) 07/07/2024 HCT 33.2 (L) 07/07/2024 LABPLAT 339 07/07/2024 NEUTOPHILPCT 71.8 07/07/2024 LYMPHOPCT 16.7 07/07/2024 MONOPCT 5.8 07/07/2024 EOSPCT 3.5 07/07/2024 CMP: Lab Results Component Value Date SODIUM 136 07/07/2024 POTASSIUM See Comment 07/07/2024 CHLORIDE 99 07/07/2024 CO2 29 07/07/2024 ANIONGAP 8 07/07/2024 GLUCOSE 215 (H) 07/07/2024 BUNSER 15 07/07/2024 CREATININE 0.65 07/07/2024 CALCIUM 8.9 07/07/2024 ALBUMIN 3.0 (L) 07/07/2024 ALKPHOS 182 (H) 07/07/2024 ALT See Comment 07/07/2024 AST See Comment 07/07/2024 BILITOT 0.4 07/07/2024 Creatinine:Estimated Creatinine Clearance: 80.8 mL/min (by Cockcroft-Gault based on SCr of 0.65 mg/dL). Resulted in the Past 12 Months 07/07/24 0134 06/26/24 0542 06/21/24 0116 CREATININE 0.65 0.94 0.82 Inflammatory Markers: Resulted in the Past 12 Months 07/07/24133 SEDRATE 41* CRP 14.9* Screening Results RPR:No results found for: LABRPR GC: No results found for: CTRACHOMATIS , NGONORRHOEAE Hepatitis Serologies: Lab Results Component Value Date HEPAIGM Negative 02/13/2017 HEPBSAG Negative 02/13/2017 HEPBCAB Negative 02/13/2017 HEPCAB Positive (A) 02/13/2017 Virologic Testing: HIV Screen:No results found for: [id number] CD4:No results found for: CD4ABS , CD4PCT Common Virologic Results: No results found for: ZPU4UON , CD4ABS , CD4PCT , NUCLEOSRT , NONNUCRTMUT , PROTEASEMUT , INTEGRASEMUT , PPD , TOXOIGG Diagnostics: EKG:No results found for: VR , AR , PRIMSEC , QRSIMSEC , QTIMSEC , QT , PA , RA , TA , DIAG Echo:Results for orders placed during the hospital encounter of 05/29/24 Transthoracic Echo (TTE) Complete W Doppler/[place] [address] Echocardiogram Report Patient Name: LEI RODRIGUEZ V : 1960 Study Date: 05/30/2024 7:47:08 AM Gender: F Tech: GUILHERME Location: [id number] Ref Provider: TY DE SANTIAGO Height(Cm): 165 BSA: 2.43 Weight(Kg): 128.7 Heart Rate: 94 BP: 135/84 Quality: Good Order Provider: TY DE SANTIAGO PROCEDURES: Echocardiographic Report: Transthoracic echocardiogram with complete 2D, M-Mode, color Doppler examination and contrast. INDICATIONS: Endocarditis. Measurements: 2D/M Mode Doppler Measurement Value Normal Range Measurement Value Normal Range EF Teich 2D 21.6 [ 54.0 - 74.0 ] percent MARIANA Vmax 3.09 cm2 EF Mod 4C 33.1 percent AV Mean PG 3 mmHg LVIDd 2D 5.71 [ 3.80 - 5.20 ] cm AV Peak Chadd 1.08 [ 1.00 - 1.70 ] m/s LVIDs 2D 5.14 [ 2.20 - 3.50 ] cm AV VTI 19.35 cm LVPWd 2D 0.98 [ 0.60 - 0.90 ] cm LVOT Diam 2.29 cm IVSd 2D 0.73 [ 0.60 - 0.90 ] cm LVOT Peak Chadd 0.81 [ 0.70 - 1.10 ] m/s LA Dimension MM 5.23 [ 2.70 - 3.80 ] cm LVOT VTI 16.72 cm AoR Diam MM 3.13 [ 2.70 - 3.70 ] cm MV E Peak Chadd 1.00 [ 0.60 - 1.30 ] m/s LA Volume Index 22.99 [ 16.00 - 34.00 ] cc/m2 MV A Peak Chadd 0.31 [ 1.00 - 1.20 ] m/s ACS MM 2.14 cm MV Mean PG 2 mmHg MV PHT 54 [ 20 - 100 ] msec MVA PHT 4.11 cm2 MV Decel Time 169 [ 104 - 258 ] msec PV Peak Chadd 1.14 [ 0.40 - 0.80 ] m/s TR Peak Chadd 2.94 [ 1.00 - 2.80 ] m/s TR Peak PG 35 mmHg RVSP 38.00 [ 10.00 - 36.00 ] mmHg E` 0.05 m/s E/E` 19.29 Measurement Value Normal Range Measurement Value Normal Range 2D/M Mode Doppler - FINDINGS: Atrial Septum: Normal atrial septum. Left Ventricle: Mild enlargement of left ventricle cavity. Left ventricle not well visualized. Optison contrast agent used to visually enhance endocardial wall motion and contractility. Normal left ventricular wall thickness. Paradoxical septal motion consistent with IVCD or bundle branch block. Ejection fraction is measured at 30 %. Left Atrium: The left atrium is normal in size. Right Ventricle: Normal right ventricular systolic function. Pacemaker noted. Right Atrium: There is mild enlargement of right atrium. Linear artifact in right atrium suggestive of catheter(s), pacemaker lead(s), or ICD lead(s). Aortic Valve: Aortic cusps appear mildly sclerotic. No evidence of hemodynamically significant aortic stenosis by Doppler. No aortic regurgitation. Mitral Valve: Normal structure of the mitral valve. Mild to moderate mitral valve regurgitation. The regurgitation jet is eccentrically directed which may underestimate the severity of mitral regurgitation. Pulmonic Valve: Normal structure of the pulmonic valve. Mild pulmonic regurgitation. Tricuspid Valve: Tricuspid valve not well visualized. Estimated peak RVSP is 42 mmHg. Mild to moderate tricuspid regurgitation. Pericardium: Trivial pericardial effusion. Aorta: Mild aortic root calcification. IVC: Dilated IVC without respiratory collapse consistent with elevated right atrial pressure (>15 mmHg). Pulmonary Artery: Mild enlargement of the pulmonary artery. CONCLUSIONS: Technically difficult study with limited views. Mild enlargement of left ventricle cavity. Left ventricle not well visualized. Optison contrast agent used to visually enhance endocardial wall motion and contractility. Normal left ventricular wall thickness. Paradoxical septal motion consistent with IVCD or bundle branch block. Ejection fraction is measured at 30 %. Normal right ventricular systolic function. Pacemaker noted. Normal structure of the mitral valve. Mild to moderate mitral valve regurgitation. The regurgitation jet is eccentrically directed which may underestimate the severity of mitral regurgitation. Tricuspid valve not well visualized. Estimated peak RVSP is 42 mmHg. Mild to moderate tricuspid regurgitation. Trivial pericardial effusion. Electronically Signed By: Coleen Cortez DO, RUBIO, MELISSA CANDELARIO 2024-05-30 09:18:05 CDT CC: CC: CC: Imaging: CT Body Outside Consult Result Date: 07/07/2024 1. New bilateral pulmonary nodules which have developed since 05/30/2024 and in the setting of bacteremia may represent septic emboli. 2. No acute process in the abdomen or pelvis or CT explanation for back pain The findings, conclusions and recommendations within this report do not replace the initial findings, conclusions and recommendations made at the facility where the study was performed based upon the imaging and clinical condition at that time. Comparison with the prior report and clinical history is necessary. The provided images may or may not represent the [facility]ana source data set and thus may contain changes that may lower the accuracy of this second-opinion interpretation. Electro nically signed by: Geo Patel MD, PHD CT Body Outside Consult Result Date: 07/07/2024 1. New bilateral pulmonary nodules which have developed since 05/30/2024 and in the setting of bacteremia may represent septic emboli. 2. No acute process in the abdomen or pelvis or CT explanation for back pain The findings, conclusions and recommendations within this report do not replace the initial findings, conclusions and recommendations made at the facility where the study was performed based upon the imaging and clinical condition at that time. Comparison with the prior report and clinical history is necessary. The provided images may or may not represent the [facility] source data set and thus may contain changes that may lower the accuracy of this second-opinion interpretation. Electro nically signed by: Geo Patel MD, PHD US Outside Consult Result Date: 07/07/2024 1. No hydronephrosis. The findings and impression are based on the available images, which may not be underwriting service representative of the entire organ or disease entity. Also note that ultrasound image acquisitionis mail handler equipment operator dependent, and that the study was performed outside our facility with no control over image acquisition. In addition, the provided images may or may not represent the [facility] source data set and thus may contain changes that may lower the accuracy of this second- opinion interpretation. The findings, conclusions and recommendations within this report do not replace the initial findings,conclusions and recommendations made at the facility where the study was performed based upon the imaging and clinical condition at that time. Comparison with the prior report and clinical history isnecessary. Electronically signed by: Kevin Gottlieb M.D. CT Body Outside Consult Result Date: 07/07/2024 This study was initially nominated as a consult on outside images via Outside Image Sharing Service. However, a consult was not performed because a more recent study of the same exam type was nominated for consultation simultaneously. This study will be used as a comparison exam. Accordingly, there will be no separate report of this study generated by a [facility] Radiologist. Electronically signed by: Kevin Gottlieb M.D. XR Outside Reference Result Date: 07/07/2024 These images are for Reference purposes only and have not been reviewed by [facility] Radiology. There will be no report generated by a [facility] Radiologist. CT Body Outside Consult Result Date: 07/07/2024 1. New bilateral pulmonary nodules which have developed since 05/30/2024 and in the setting of bacteremia may represent septic emboli. 2. No acute process in the abdomen or pelvis or CT explanation for back pain The findings, conclusions and recommendations within this report do not replace the initial findings, conclusions and recommendations made at the facility where the study was performed based upon the imaging and clinical condition at that time. Comparison with the prior report and clinical history is necessary. The provided images may or may not represent the [facility] source data set and thus may contain changes that may lower the accuracy of this second-opinion interpretation. Electro nically signed by: Geo Patel MD, PHD CT Body Outside Consult Result Date: 07/07/2024 1. New bilateral pulmonary nodules which have developed since 05/30/2024 and in the setting of bacteremia may represent septic emboli. 2. No acute process in the abdomen or pelvis or CT explanation for back pain The findings, conclusions and recommendations within this report do not replace the initial findings, conclusions and recommendations made at the facility where the study was performed based upon the imaging and clinical condition at that time. Comparison with the prior report and clinical history is necessary. The provided images may or may not represent the [facility] source data set and thus may contain changes that may lower the accuracy of this second-opinion interpretation. Electro nically signed by: Geo Patel MD, PHD US Outside Consult Result Date: 07/07/2024 1. No hydronephrosis. The findings and impression are based on the available images, which may not be underwriting service representative of the entire organ or disease entity. Also note that ultrasound image acquisitionis mail handler equipment operator dependent, and that the study was performed outside our facility with no control over image acquisition. In addition, the provided images may or may not represent the [facility] source data set and thus may contain changes that may lower the accuracy of this second- opinion interpretation. The findings, conclusions and recommendations within this report do not replace the initial findings,conclusions and recommendations made at the facility where the study was performed based upon the imaging and clinical condition at that time. Comparison with the prior report and clinical history isnecessary. Electronically signed by: Kevin Gottlieb M.D. CT Body Outside Consult Result Date: 07/07/2024 This study was initially nominated as a consult on outside images via Outside Image Sharing Service. However, a consult was not performed because a more recent study of the same exam type was nominated for consultation simultaneously. This study will be used as a comparison exam. Accordingly, there will be no separate report of this study generated by a [facility] Radiologist. Electronically signed by: Kevin Gottlieb M.D. XR Outside Reference Result Date: 07/07/2024 These images are for Reference purposes only and have not been reviewed by [facility] Radiology. There will be no report generated by a [facility] Radiologist. Assessment/Plan Patient is a 63 y.o. female with multiple comorbidities including Afib, IDDM2, HFrEF s/p AICD, hypothyroidism, and intellectual disability, who recently completed treatment for complicated MSSA bacteremia at an OSH with four weeks of cefazolin (05/25-06/21). GT at that time did not show any evidenceof endocardiac or ICD involvement. She represented to OSH on 06/21 with non-specific complaints and was found to have recurrent MSSA bacteremia of unclear source. CT imaging was not suggestive of osteomyelitis but given ongoing complaint of back pain was transferred here for consideration of MRI given potential non-compatibility withexisting AICD. 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 Recommendations: - Continue cefazolin 2g q8hr for targeted anti-MSSA therapy - Agree with GT for assessment of endocardiac or ICD-associated foci of infection - Agree with EP and CTS consults for consideration of ICD removal - Even if no evidence of infection on GT, would still strongly recommend ICD removal given high pre-test probability of involvement and because she has already failed therapy - She has lumbar spinal tenderness on exam which is worrying for bony involvement. However, would hold off on pursuing MRI for now since unlikely to change overall management and because may not be feasible anyhow given her ICD Thank you for the opportunity to participate in the care of your patient. We will continue to follow. Please contact the Team 1 ID fellow as listed on Amion with any questions or concerns. Patient was seen and discussed with Dr. Villanueva who helped formulate above plan. Today, I am treating the patient for MSSA bacteremia which can cause metastatic infection, sepsis, and in the short-term future in the absence of appropriate treatment, as described in the note. and The patient is being intensively monitored for antimicrobial toxicity from cefazolin with the f ollowing tests: CMP, CBC. Eric Magaña MD PhD Infectious Diseases Fellow Cosigned by Bonnie Villanueva MD PhD at 07/09/2024 12:25 PM CDT Associated attestation - Bonnie Villanueva MD PhD - 07/09/2024 12:25 PM CDT I have seen and examined the patient on 07/07/2024. I agree with the findings and plan of care as documented in the resident's/fellow's note.. documented in this encounter Nursing Notes * Emily Root - 08/02/2024 5:42 PM CDT Sister here with patient. Patient and family given d/c information and d/c paperwork. Patient is stable. VSS.Patient left via wheelchair to the d/c lounge wearing her life vest. They are aware of mobile medications being delivered to the hospitality suite. department secretary helped with escorting the family to the hospitality suite. No other issues noted. * Marleen Mack RN - 08/02/2024 5:33 AM CDT Pt refused all AM medications, VS and weight. Pt educated on importance of taking AM medication, monitoring VS and daily weights, pt put blanket over head and replied, ''leave me alone, I don't care . Dr. Lazar notified. WCTM * Rony Naylor, BROWN - 07/29/2024 3:59 AM CDT Pt refused vitals, accuchecks, and meds. Threw the med cup at the nurse. Pt ripped out her IV. Pt yelled she just wanted to go home, she was tired of meds and being in the hospital. Getting labs and accuchecks hurt and she didn't like it and didn't want. Attempted to educate pt. aware. * Agnieszka Logan RN - 07/27/2024 3:09 PM CDT Lei Rodriguez is s/p GT. Pt is A&Ox4, VSS. Patient returning to [address] A. Report called to BROWN Slaughter .Patient's family updated at bedside by MD. Pt transported via bed. * Rony Naylor RN - 07/27/2024 4:15 AM CDT Pt refusing labs, screaming she didn't want to be hurt. Pt also refusing to wear tele. Attempted toeducate pt with little success. aware. Will continue to monitor. * Lucila Figueroa RN - 07/26/2024 3:52 PM CDT Patient refusing telemetry at this time. Will continue to monitor * Coleen Haynes RN - 07/22/2024 8:06 PM CDT RN attempted to give pt her klonopin per orders. Pt is very agitated and is still yelling and cursing at the staff. Pt also threw her food a couple of hours ago because she was upset about her food choices and her test for tomorrow that she does not want to do. Pt has hit the nurses and swatted them away as well as cursed them out multiple times throughout the day and even threw her dinner in thechair instead of at the nurse when she said she could not have a hamburger. Pt's sister is on the phone and are trying to talk with pt and nurse to calm pt down and try to take some meds to relax a bit so that she can rest for tomorrow. and in to see pt's at different times. Pt will go through phases of yelling, crying, and cursing at the staff and then play hid n seek with her covers over her head because she is done talking to you. * Karime Ruth RN - 07/19/2024 4:56 PM CDT Pt transferred from 9200. Agree with AM assessment. Will continue with current poc. * Abilio Aguilar RN - 07/19/2024 3:46 PM [place] [id number]. Report called to Maritza DASILVA. Patient transferred with telemetry and belongings. * Naa Hager - 07/10/2024 5:02 PM CDT Patient is calm at this time, still tearful, refusing to eat, keeps asking for fried foods, candy, chips, soda, and burgers. Re-educated pt on her diet orders. It causes her to become agitated so we are not discussing food for now. She took her meds earlier. She allowed a blood draw. Is cooperative, however, she keeps calling her sister asking her to take her home. * Naa Hager - 07/10/2024 2:36 PM CDT Pt has been agitated since she returned from procedure, yelling, pacing, non- compliant.. [facility], they rounded, pt calmed down for a bit, but become agitated again, trying to pull out her IV, slapped herself, threw her walker, this person is unable to leave pt at this time. Sisters have left, they seemed to upset her more. They left, and she continued to throw her items, pull at lines, cursing, yelling. Notified charge that she may need a sitter, notified Dr. Brownabout her behaviors. She is now cursing and yelling at her roommate. Pt is refusing all meds, or toallow urine to be collected for UA. Will continue to monitor at this time. * Alexandria Chambers RN - 07/10/2024 12:57 PM CDT Patient status post GT. Patient VSS. Report called to Naa DASILVA and to go back to [id number]. documented in this encounter Miscellaneous Notes * ECIN Note - Lou Parmar RN - 08/02/2024 4:00 PM CDT Patient Information: Referral Order Details (96h ago through 96h from now) Ordered Start 08/02/24 1526 Ambulatory referral to Home Health Electronically Signed By: Russ Pride MD Question Answer Comment Service Line Home Health Primary disciplines requested: Physical Therapy Primary disciplines requested: Jail Secondary disciplines requested: Occupational Therapy Home Health Services Therapy to Eval/Tx Therapy instructions: [place]/skeletal rehab PT/OT Requested Start of Care Date: Other Comment: After discharge Physician to follow patient's care (the person listed here will be responsible for signing ongoing orders): PCP I attest that I or another qualified licensed provider saw the patient 90 days prior to or 30 days post admission and this face to face encounter meets the necessary Home Health requirements. The face to face encounter occurred on (date): 08/01/2024 The encounter with the patient was in whole, or in part, for the following medical condition, whichis the primary reason for home health care. (List medical condition): PMH endocarditis s/p abx, obesity, heart failure. Will require help with ambulation and movement I certify that, based on my findings, the following services are medically necessary skilled home health services: Therapy to Eval/Tx Clinical findings that support the need for home care: Frequent falls requiring safety eval/therapy I certify that my clinical findings support patient's homebound status. Homebound criteria met because: Shortness of breath with minimal exertion I certify that my clinical findings support patient's homebound status. Homebound criteria met because: Poor endurance I certify that my clinical findings support patient's homebound status. Homebound criteria met because: Abnormal gait/unsteady balance resulting in fall risk 08/02/24 0000 07/31/24 1319 Wearable Cardioverter Defibrillator Electronically Signed By: Russ Pride MD Question Answer Comment Height: 165.1 cm (5' 5 ) Weight: 105.9 kg (233 lb 6.4 oz) Estimated start date: 07/31/2024 Type: ASSURE - [facility] Length of prescription: 4 months VT zone detection rate (bpm): 170 VT zone treatment: Treat VF detection rate: (bpm): 200 Treatment (Joules): 170J for all shocks in all Zones Type of patient: Outpatient To qualify for Assure WCD, patient must have one of the following diagnoses: Cardiac arrest due to VF or sustained VT ICD-10 Codes (select as many as appropriate): I42.0 Dilated cardiomyopathy ICD-10 Codes (select as many as appropriate): I46.8 Cardiac arrest due to other underlying condition ICD-10 Codes (select as many as appropriate): I47.2 Ventricular tachycardia ICD-10 Codes (select as many as appropriate): I49.01 Ventricular fibrillation ICD-10 Codes (select as many as appropriate): [id number] Infection and inflammatory reaction due to other cardiac and vascular devices When a Kestra Assure is ordered in [employer] for [employer], the order is automatically faxed to [employer].. Additional patient information is needed. Please enter the date you will fax the patient???s face sheet and supporting documentation to [phone]. 07/31/2024 The [id number] evaluation was performed on: 07/31/2024 DME services provided by: [facility] 07/31/24 0000 * Plan of Care - Emily Root - 08/02/2024 3:59 PM CDT Goals: Clinical Goals for the Shift: pt will remain HDS, free from active infection, no ectopy, free from falls and report pain under control Residential Patient Centered Goal for Treatment: DC w/ lifevest Summary: Patient is ready to discharge with her sister home. Iv removed and patient is trying to remember and understand how to use her ASSURE life vest. Her sisters will aid in her compliance. Patient is stable and in no distress. VSS at discharge. Sisters understand d/c instructions, f/u instructions and medications. No other needs voiced. * Plan of Care - Marleen Mack RN - 08/01/2024 9:24 PM CDT Problem: Skin Integrity Impairment Risk Goal: Mobility will improve Outcome: Progressing Goal: Understanding of ways to prevent future skin breakdown will improve Outcome: Progressing Goal: Nutritional status will improve Outcome: Progressing Goal: Risk for impaired skin integrity will decrease Outcome: Progressing Problem: Fall Risk Goal: Ability to state ways to decrease the risk of falls will improve Outcome: Progressing Goal: Will remain free from falls Outcome: Progressing Goal: Will remain free from injury from falls Outcome: Progressing Problem: Cardiovascular Goal: Maintains optimal cardiac output and hemodynamic stability Outcome: Progressing Goal: Absence of cardiac dysrhythmias or at baseline Outcome: Progressing Goal: Cardiovascular status will improve Outcome: Progressing Problem: Musculoskeletal Goal: Return mobility to safest level of function Outcome: Progressing Goal: Ability to perform activities at highest level will improve Outcome: Progressing Goal: Mobility, ROM and muscle strength will improve Outcome: Progressing Problem: Infection Goal: Absence of infection during hospitalization Outcome: Progressing Problem: Metabolic/Fluid and Electrolytes Goal: Electrolytes maintained within normal limits Outcome: Progressing Goal: Hemodynamic stability and optimal renal function maintained Outcome: Progressing Goal: Glucose maintained within prescribed range Outcome: Progressing Problem: Neurosensory Goal: Achieves maximal functionality and self care Outcome: Progressing Problem: Skin/Tissue Integrity Goal: Skin integrity remains intact Outcome: Progressing Goal: Incisions, wounds, or drain sites healing without S/S of infection Outcome: Progressing Problem: Gastrointestinal Goal: Minimal or absence of nausea and vomiting Outcome: Progressing Goal: Maintains or returns to baseline bowel function Outcome: Progressing Goal: Maintains adequate nutritional intake Outcome: Progressing Problem: Genitourinary Goal: Absence of urinary retention Outcome: Progressing Problem: Respiratory Goal: Achieves optimal ventilation and oxygenation Outcome: Progressing Problem: Discharge Planning Goal: Understanding discharge needs will improve Outcome: Progressing Problem: Lack of Knowledge Goal: Ability to develop a pain control plan will improve Outcome: Progressing Problem: Medication Goal: Satisfaction with pain management medication regimen will improve Outcome: Progressing Problem: Sensory Goal: Ability to identify factors that increase pain levels will improve while working to decrease the patient's pain levels Outcome: Progressing Problem: Coping Goal: Ability to cope will improve Outcome: Progressing Problem: Health Behavior Goal: Identification of resources available to assist in meeting health care needs will improve Outcome: Progressing Problem: Lack of Knowledge Goal: Ability to describe self care measures that may prevent or decrease complications related to Type 2 Diabetes will improve Outcome: Progressing Problem: Health Nutrition Goal: Nutritional intake and knowledge related to Diabetes will improve Outcome: Progressing Goals: Clinical Goals for the Shift: pt will remain HDS, free from active infection, no ectopy, free from falls and report pain under control [employer] Patient Centered Goal for Treatment: DC w/ lifevest Summary: Patient participating in care plan goals. Patient verbalized education and is progressing towards goals. * Plan of Care - Emily Root - 08/01/2024 6:34 PM CDT Goals: Clinical Goals for the Shift: HDS [employer] Patient Centered Goal for Treatment: Safe discharge Summary: life vest fitting went well and patient compliant with wearing device. Vss. No distress. She appears more pleasant than usual. thanks * Hospital Course - Raul Holder MD - 08/01/2024 1:32 PM CDT Lei Rodriguez is a 63 y.o. female with a PMHx significant for MSSA bacteremia (05/2024), A-fib,HFrEF (EF 30%), T2DM, GERD, Intellectual disability who presented to [facility] after recent hospitalizations for MSSA bacteremia with concerns for spinal osteomyelitis. Imaging performed here did not show spinal osteomyelitis, but did show TV endocarditis (1.0 cm x 1.0 cm vegetation). She was started on antibiotics with last positive blood culture 07/01 and first negative culture 07/02. Repeat culture 07/07 was also negative. She underwent ICD explantation 07/13. Repeat GT 07/27 demonstrated persistent vegetation despite abx. Of note, she has a retained wire in her PA which represents a persistent infectious source (unclearhow wire was left in PA). She was not considered a candidate for angiovac/TV surgery given clearingcultures and patient family preference. Also not a candidate for retained wire removal given elevated risk per vascular surgery. Decision was made to defer ICD re-implantation at the time given persistent vegetation on TV. She was discharged home with a Kestra vest, lifelong antibiotic suppression with cefadroxil and plans for4 more weeks of antibiotics with re-imaging of TV and eventual ICD. #MSSA TV Endocarditis, recurrent, secondary to infected ICD lead # ICD explantation 07/13/24 # Persistent TV vegetation #History of Vfib/VT Recent admit 05/2024 for MSSA bacteremia. Per outside hospital, TTE and GT at the time without vegetations on valves/ICD. S/p 4 weeks of IV Ancef ending 06/21. Review of ID notes from OSH show blood cultures remained clear on 06/13. 07/01 blood cx were drawn x2, 10/11 then second set 11/11 MSSA. Ancef restarted. 07/07 cx NGTD. Recurrence due to lack of source control on ICD. S/p ICD explant on 07/13/24 with path confirming MSSA on ICD lead. Also found to have TV endocarditis with vegetation visualized on GT 07/10, 07/13, persistent on 07/27 (1.2 x 0.9 cm 07/13 vs 1.0 x 1.1 cm on 07/27). Per multidisciplinary discussion with CTS, valvular prior to ICD explant, not a candidate for angiovac or TV surgery given clearing BCx, moderate vegetation size, without significant valve dysfunction, and sisters strongly against open heart surgery (see CTS brief note 07/11/24). Also not a candidate for removal ofretained wire, extremely high risk per CTS/Vascular. Patient found to have retained wire in PA, representing persistent potential source and precluding any future MRI per discussion with radiology. Underwent PET 07/23/24 to rule out osteo of spine and was negative. Will need lifetime antibiotic suppression of cefadroxil, per ID due to retained wire (07/25-) and has received Ancef q8h 07/13- and 2 doses of Dalbavancin (07/25, 08/01), which will provide her 6 weeks of MSSA infective endocarditis coverage. Per conversation with ID, they recommended no IV outpatient antibiotics given level of supervision necessary. Additionally, per EP, transvenous ICD cannot be placed until TV vegetation clears. In the interim, patient was discharged with Kestra life vest and provided family and patient teachings. Patient will need to follow up with ID and cardiology/EP outpatient for MSSA IE coverage andTEE in 4 weeks (08/24) and re-evaluation of ICD placement. Encourage adherence to LifeVest with thehelp of patient's sisters. - Lifelong suppression with cefadroxil - Repeat GT in 4 weeks to reassess vegetation - Wearing Kestra ICD vest until follow up GT - Not a candidate for surgery / wire removal given risk/patient preference/cleared cultures - Will need re-implantation of ICD after 4 weeks abx #Hx of intellectual disability/developmental delay #Agitation #Concern for suicidality, resolved Sister Dilia currently takes care of patient, other sister Peg assists. Both discuss pt medical decisions together. Patient is not consentable. As in interval history 07/18, patient expressed sentiments of preferring to over remaining in hospital. Per assessment by primary team, not felt estevan actively suicidal at this time, deferred sitter. Psychiatry consulted, appreciate further recommendations. Haldol 2 mg PRN for agitation, avoid further benzos due to concern of delirium. No activeSI/HI/AVH at discharge. #HFrEF - compensated EF of 30% on 05/2024 echocardiogram, mild-mod MR, RVSP 42 mild-mod TR. HFrEF dates back to at [id number], etiology not established. S/p CTA coronary 07/16 without CAD, sarcoid PET 07/23/24 without inflammation. No issues with volume overload during stay. Discharged on: - Entresto 24-26 BID (did not increase further, felt limited by BPs) - metoprolol 150 XL (increased during admission for rate control, see below) - spironolactone 12.5 mg. - Was not started on Farxiga due to prior history of recurrent UTI. - Diuretic: lasix 40 daily #Persistent atrial fibrillation #MAULIK Thrombus In AFib throughout admission. Previously on Tikosyn, however, taken off of Tikosyn after admission for MSSA, and was continued on Xarelto for AC and Coreg for rate control. GT in May 2024 performed to eval for endocarditis showed LA thrombus while on Xarelto. At OSH just prior to this admission, patient had RVR and received dual tim blockade with dilt and metoprolol, stopped dilt 2/2 reduced EF and continued on metoprolol. Metoprolol succinate increased to 75 after symptomatic RVR on 07/18, increase to 100 07/27 due to rates 130s and transient into 150s. Anticoagulation: heparin gtt -> Eliquis 07/14. Discharged on apixaban 5 bid and 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 100 daily #T2DM Home regimen: glargine 18u; Lispro 10 TID + SSI. A1c here 7.7 on 9/28/24. Currently on Lantus 26 and mealtime 11 TID + HDSSI given hyperglycemia. She has been poorly controlled during admission due to inconsistency in diet and willingness to receive insulin. Episode of hypoglycemia 07/21 after patient received insulin then refused to eat any food, other times eating but refuses insulin. Recommendfurther diet counseling outpatient and insulin management. #Anemia Hgb 10.8 on arrival. Bl: 11-12. MCV elevated. B12 > 1000 at OSH, Folate wnl. #Recurrent UTI #OAB Per family, has been treated multiple times recently for UTIs. Her symptoms are not urinary in nature, her symptoms typically are becoming delirious and belligerent. UA at outside hospital with 0-5 WBC, 3+ nitrate. Cx was performed which showed >100,000 colonies E coli and per documentation completed course of ceftriaxone for UTI. Given ongoing concerns with family surrounding possible UTI, repeated UA 07/19 negative. Home Vibegron 75, but changed to Mirabegron for formulary. #MARK, resolved Cr elevated to 1.66 in PM 07/18 labs, FeUrea prerenal, suspected in setting of transient hypotensionduring RVR on 07/18. Resolved without treatment. #Hypothyroidism: Synthroid 75mcg, TSH 2.8 #Depression: Continue Lexapro 10, nortriptyline 10. Moved nortriptyline to PM dosing per psychiatryrecommendations #GERD: Pantoprazole 20 #Constipation: Senna-Docusate BID #JOSE: Patient reportedly intermittently compliant at home on CPAP. Patient declined daily, ne'ed after 2 weeks of daily refusal * Plan of Care - Lou Parmar RN - 08/01/2024 9:53 AM CDT 08/01/24 0952 Discharge Planning Support System Family members Anticipated discharge level of care Private residence Does the patient need discharge transport arranged? No (Sister for transportation) Post Acute Care Plan Home Care Services N/A OP Services N/A DME Yes Durable Medical Equipment Other (Comment) DME Name and Contact Number Carola MARCO Lora Janki ([phone]) Post Acute Care Facility N/A CM Progression of Care Update Per Medical Chart/Rounds/IDR: Patient is not medically ready for discharge. ADD: 08/03/24 Discharge Barriers: Patient to receive 2nd dose of Dalbavancin on . Needs Identified (plan): Patient will not get ICD this admission. placed order for a Efestra MARCO external defibrillator. YESENIA spoke to Carola aguilar Janki [phone], who stated they will fit the patient this afternoon. YESENIA spoke to an insurance plan specialist, Kevin [phone], who was wanting an update about discharge. YESENIA provided a discharge updated and asked Kevin if he could provide home health agencies that accept patient's insurance. Kevin to email YESENIA a list of agencies. Addendum: YESENIA sent home health referrals via [employer]. [facility] accepted. [phone]/fax [phone]. F/U Appointments: To be made closer to discharge. Patient's Identified Problem/Goal Problem:?Ensure acute medical needs are met and that patient has a safe discharge plan. Goal:?Secure a discharge plan that patient/family are agreeable with?and ensure patient has continuum of care. Patient and/or family are agreeable with plan. medical clinic manager will continue to follow and assist withdischarge planning as needed. If any further discharge needs arise, please contact the covering senior case manager. BABAK Aguilar, online content developer For emergency needs after 4:30 pm, please call the sybase developer . For weekend/holiday needs from 8:00a.m. - 4:30p.m., please check the treatment team in [facility] for theassigned senior case manager or contact the weekend Case Management phone . * Plan of Care - Sosa Logan RN - 07/31/2024 8:13 PM CDT Goals: Clinical Goals for the Shift: HDS Residential Patient Centered Goal for Treatment: Safe discharge Summary: clw Problem: Skin Integrity Impairment Risk Goal: Mobility will improve Outcome: Ongoing Problem: Fall Risk Goal: Ability to state ways to decrease the risk of falls will improve Outcome: Ongoing Problem: Cardiovascular Goal: Absence of cardiac dysrhythmias or at baseline Outcome: Ongoing Problem: Coping Goal: Ability to cope will improve Outcome: Ongoing * Plan of Care - Emily Root - 07/31/2024 5:05 PM CDT Goals: Clinical Goals for the Shift: HDS Residential Patient Centered Goal for Treatment: Safe discharge Summary: spoke with Ynes with [employer] wearable cardiac defibrillator and she has spoken with both sisters and will be here tomorrow for instructions on wearing the device. VSS. No other needs voiced. * Significant Event - Bull Mir MD - 07/31/2024 11:15 AM CDT Brief EP Note: Telemetry reviewed with [facility]. Recommendations: -Recommend [employer] on discarge with education for patient and sister prior to dc -Repeat GT in 4 weeks to see resolution of TV endocarditis for 2* ICD -We will sign off -EP follow up with primary vs our group per pt preference Bull Mir MD PGY-5 Cardiovascular Medicine 11:16 AM 07/31/24 * Plan of Care - Sosa Logan RN - 07/30/2024 9:26 PM CDT Goals: Clinical Goals for the Shift: HDS Residential Patient Centered Goal for Treatment: Safe discharge Summary: clw Problem: Skin Integrity Impairment Risk Goal: Mobility will improve Outcome: Ongoing Problem: Fall Risk Goal: Will remain free from injury from falls Outcome: Ongoing Problem: Cardiovascular Goal: Cardiovascular status will improve Outcome: Ongoing Problem: Musculoskeletal Goal: Mobility, ROM and muscle strength will improve Outcome: Ongoing * Plan of Care - Best Donahue RN - 07/30/2024 1:12 PM CDT 07/30/24 1312 Discharge Planning Support System Family members Anticipated discharge level of care Private residence Does the patient need discharge transport arranged? No CM Progression of Care Update Per Medical Chart/Rounds/IDR: IDR ADD: 08/03 Discharge Barriers: Needs ICD re-implanted, needs final ID recs Education Needs Identified (plan): Sister prefers discharge to home. Current plan is to keep patient for 08/02 dalbavancin dose (or pending other ID recs). Needs ICD re-implanted before discharge. F/U Appointments: to be arranged closer to discharge date Patient's Identified Problem/Goal Problem:?Ensure acute medical needs are met and that patient has a safe discharge plan. Goal:?Secure a discharge plan that patient/family are agreeable with?and ensure patient has continuum of care. Patient and/or family are agreeable with plan. medical clinic manager will continue to follow and assist with discharge planning as needed. If any further discharge needs arise, please contact the covering senior case manager. * Plan of Care - Светлана Ortiz RN - 07/30/2024 12:11 PM CDT Problem: Skin Integrity Impairment Risk Goal: Mobility will improve Outcome: Not Progressing Goal: Understanding of ways to prevent future skin breakdown will improve Outcome: Not Progressing Goal: Nutritional status will improve Outcome: Not Progressing Goal: Risk for impaired skin integrity will decrease Outcome: Not Progressing Problem: Fall Risk Goal: Ability to state ways to decrease the risk of falls will improve Outcome: Not Progressing Goal: Will remain free from falls Outcome: Not Progressing Goal: Will remain free from injury from falls Outcome: Not Progressing Problem: Cardiovascular Goal: Maintains optimal cardiac output and hemodynamic stability Outcome: Not Progressing Goal: Absence of cardiac dysrhythmias or at baseline Outcome: Not Progressing Goal: Cardiovascular status will improve Outcome: Not Progressing Goals: Clinical Goals for the Shift: Stable vital signs, free of falls Residential Patient Centered Goal for Treatment: Safe discharge Summary: * Plan of Care - Carlota Aleman RN - 07/30/2024 12:53 AM CDT Goals: Clinical Goals for the Shift: Stable vital signs, free of falls [employer] Manager Patient Centered Goal for Treatment: Safe discharge Problem: Skin Integrity Impairment Risk Goal: Mobility will improve Outcome: Progressing Goal: Understanding of ways to prevent future skin breakdown will improve Outcome: Progressing Goal: Nutritional status will improve Outcome: Progressing Goal: Risk for impaired skin integrity will decrease Outcome: Progressing Problem: Fall Risk Goal: Ability to state ways to decrease the risk of falls will improve Outcome: Progressing Goal: Will remain free from falls Outcome: Progressing Goal: Will remain free from injury from falls Outcome: Progressing Problem: Cardiovascular Goal: Maintains optimal cardiac output and hemodynamic stability Outcome: Progressing Goal: Absence of cardiac dysrhythmias or at baseline Outcome: Progressing Goal: Cardiovascular status will improve Outcome: Progressing Problem: Musculoskeletal Goal: Return mobility to safest level of function Outcome: Progressing Goal: Ability to perform activities at highest level will improve Outcome: Progressing Goal: Mobility, ROM and muscle strength will improve Outcome: Progressing Problem: Infection Goal: Absence of infection during hospitalization Outcome: Progressing Problem: Metabolic/Fluid and Electrolytes Goal: Electrolytes maintained within normal limits Outcome: Progressing Goal: Hemodynamic stability and optimal renal function maintained Outcome: Progressing Goal: Glucose maintained within prescribed range Outcome: Progressing Problem: Neurosensory Goal: Achieves maximal functionality and self care Outcome: Progressing Problem: Skin/Tissue Integrity Goal: Skin integrity remains intact Outcome: Progressing Goal: Incisions, wounds, or drain sites healing without S/S of infection Outcome: Progressing Problem: Gastrointestinal Goal: Minimal or absence of nausea and vomiting Outcome: Progressing Goal: Maintains or returns to baseline bowel function Outcome: Progressing Goal: Maintains adequate nutritional intake Outcome: Progressing Problem: Genitourinary Goal: Absence of urinary retention Outcome: Progressing Problem: Discharge Planning Goal: Understanding discharge needs will improve Outcome: Progressing Problem: Lack of Knowledge Goal: Ability to develop a pain control plan will improve Outcome: Progressing Problem: Medication Goal: Satisfaction with pain management medication regimen will improve Outcome: Progressing Problem: Sensory Goal: Ability to identify factors that increase pain levels will improve while working to decrease the patient's pain levels Outcome: Progressing Problem: Coping Goal: Ability to cope will improve Outcome: Progressing Problem: Health Behavior Goal: Identification of resources available to assist in meeting health care needs will improve Outcome: Progressing Problem: Lack of Knowledge Goal: Ability to describe self care measures that may prevent or decrease complications related to Type 2 Diabetes will improve Outcome: Progressing Problem: Health Nutrition Goal: Nutritional intake and knowledge related to Diabetes will improve Outcome: Progressing Summary: Patient verbalized understanding of care plan and is participating in care. Vital signs stable. Patient denies any further needs at this time. 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 Goal for Treatment: Safe discharge Problem: Skin Integrity Impairment Risk Goal: Mobility will improve Outcome: Progressing Goal: Understanding of ways to prevent future skin breakdown will improve Outcome: Progressing Goal: Nutritional status will improve Outcome: Progressing Goal: Risk for impaired skin integrity will decrease Outcome: Progressing Problem: Fall Risk Goal: Ability to state ways to decrease the risk of falls will improve Outcome: Progressing Goal: Will remain free from falls Outcome: Progressing Goal: Will remain free from injury from falls Outcome: Progressing Problem: Cardiovascular Goal: Maintains optimal cardiac output and hemodynamic stability Outcome: Progressing Goal: Absence of cardiac dysrhythmias or at baseline Outcome: Progressing Goal: Cardiovascular status will improve Outcome: Progressing Problem: Musculoskeletal Goal: Return mobility to safest level of function Outcome: Progressing Goal: Ability to perform activities at highest level will improve Outcome: Progressing Goal: Mobility, ROM and muscle strength will improve Outcome: Progressing Problem: Infection Goal: Absence of infection during hospitalization Outcome: Progressing Problem: Metabolic/Fluid and Electrolytes Goal: Electrolytes maintained within normal limits Outcome: Progressing Goal: Hemodynamic stability and optimal renal function maintained Outcome: Progressing Goal: Glucose maintained within prescribed range Outcome: Progressing Problem: Neurosensory Goal: Achieves maximal functionality and self care Outcome: Progressing Problem: Skin/Tissue Integrity Goal: Skin integrity remains intact Outcome: Progressing Goal: Incisions, wounds, or drain sites healing without S/S of infection Outcome: Progressing Problem: Gastrointestinal Goal: Minimal or absence of nausea and vomiting Outcome: Progressing Goal: Maintains or returns to baseline bowel function Outcome: Progressing Goal: Maintains adequate nutritional intake Outcome: Progressing Problem: Genitourinary Goal: Absence of urinary retention Outcome: Progressing Problem: Respiratory Goal: Mechanical Ventilation will be safely managed Outcome: Progressing Problem: Discharge Planning Goal: Understanding discharge needs will improve Outcome: Progressing Problem: Lack of Knowledge Goal: Ability to develop a pain control plan will improve Outcome: Progressing Problem: Medication Goal: Satisfaction with pain management medication regimen will improve Outcome: Progressing Problem: Sensory Goal: Ability to identify factors that increase pain levels will improve while working to decrease the patient's pain levels Outcome: Progressing Problem: Coping Goal: Ability to cope will improve Outcome: Progressing Problem: Health Behavior Goal: Identification of resources available to assist in meeting health care needs will improve Outcome: Progressing Problem: Lack of Knowledge Goal: Ability to describe self care measures that may prevent or decrease complications related to Type 2 Diabetes will improve Outcome: Progressing Problem: Health Nutrition Goal: Nutritional intake and knowledge related to Diabetes will improve Outcome: Progressing * Plan of Care - Rony Naylor RN - 07/28/2024 11:22 PM CDT Problem: Skin Integrity Impairment Risk Goal: Mobility will improve Outcome: Progressing Goal: Understanding of ways to prevent future skin breakdown will improve Outcome: Progressing Goal: Nutritional status will improve Outcome: Progressing Goal: Risk for impaired skin integrity will decrease Outcome: Progressing Problem: Fall Risk Goal: Ability to state ways to decrease the risk of falls will improve Outcome: Progressing Goal: Will remain free from falls Outcome: Progressing Goal: Will remain free from injury from falls Outcome: Progressing Problem: Cardiovascular Goal: Maintains optimal cardiac output and hemodynamic stability Outcome: Progressing Goal: Absence of cardiac dysrhythmias or at baseline Outcome: Progressing Goal: Cardiovascular status will improve Outcome: Progressing Problem: Infection Goal: Absence of infection during hospitalization Outcome: Progressing Problem: Musculoskeletal Goal: Return mobility to safest level of function Outcome: Progressing Goal: Ability to perform activities at highest level will improve Outcome: Progressing Goal: Mobility, ROM and muscle strength will improve Outcome: Progressing Goals: Clinical Goals for the Shift: pt will remain HDS Residential Patient Centered Goal for Treatment: Safe discharge Summary: Patient verbalized understanding of care plan and is participating in care. Will continue to monitor patient's progress. 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 Goal for Treatment: Safe discharge Problem: Skin Integrity Impairment Risk Goal: Mobility will improve Outcome: Progressing Goal: Understanding of ways to prevent future skin breakdown will improve Outcome: Progressing Goal: Nutritional status will improve Outcome: Progressing Goal: Risk for impaired skin integrity will decrease Outcome: Progressing Problem: Fall Risk Goal: Ability to state ways to decrease the risk of falls will improve Outcome: Progressing Goal: Will remain free from falls Outcome: Progressing Goal: Will remain free from injury from falls Outcome: Progressing Problem: Cardiovascular Goal: Maintains optimal cardiac output and hemodynamic stability Outcome: Progressing Goal: Absence of cardiac dysrhythmias or at baseline Outcome: Progressing Goal: Cardiovascular status will improve Outcome: Progressing Problem: Musculoskeletal Goal: Return mobility to safest level of function Outcome: Progressing Goal: Ability to perform activities at highest level will improve Outcome: Progressing Goal: Mobility, ROM and muscle strength will improve Outcome: Progressing Problem: Infection Goal: Absence of infection during hospitalization Outcome: Progressing Problem: Metabolic/Fluid and Electrolytes Goal: Electrolytes maintained within normal limits Outcome: Progressing Goal: Hemodynamic stability and optimal renal function maintained Outcome: Progressing Goal: Glucose maintained within prescribed range Outcome: Progressing Problem: Neurosensory Goal: Achieves maximal functionality and self care Outcome: Progressing Problem: Skin/Tissue Integrity Goal: Skin integrity remains intact Outcome: Progressing Goal: Incisions, wounds, or drain sites healing without S/S of infection Outcome: Progressing Problem: Gastrointestinal Goal: Minimal or absence of nausea and vomiting Outcome: Progressing Goal: Maintains or returns to baseline bowel function Outcome: Progressing Goal: Maintains adequate nutritional intake Outcome: Progressing Problem: Genitourinary Goal: Absence of urinary retention Outcome: Progressing Problem: Respiratory Goal: Mechanical Ventilation will be safely managed Outcome: Progressing Problem: Discharge Planning Goal: Understanding discharge needs will improve Outcome: Progressing Problem: Lack of Knowledge Goal: Ability to develop a pain control plan will improve Outcome: Progressing Problem: Medication Goal: Satisfaction with pain management medication regimen will improve Outcome: Progressing Problem: Sensory Goal: Ability to identify factors that increase pain levels will improve while working to decrease the patient's pain levels Outcome: Progressing Problem: Coping Goal: Ability to cope will improve Outcome: Progressing Problem: Health Behavior Goal: Identification of resources available to assist in meeting health care needs will improve Outcome: Progressing Problem: Lack of Knowledge Goal: Ability to describe self care measures that may prevent or decrease complications related to Type 2 Diabetes will improve Outcome: Progressing Problem: Health Nutrition Goal: Nutritional intake and knowledge related to Diabetes will improve Outcome: Progressing * Plan of Care - Rony Naylor RN - 07/27/2024 9:31 PM CDT Problem: Skin Integrity Impairment Risk Goal: Mobility will improve Outcome: Progressing Goal: Understanding of ways to prevent future skin breakdown will improve Outcome: Progressing Goal: Nutritional status will improve Outcome: Progressing Goal: Risk for impaired skin integrity will decrease Outcome: Progressing Problem: Fall Risk Goal: Ability to state ways to decrease the risk of falls will improve Outcome: Progressing Goal: Will remain free from falls Outcome: Progressing Goal: Will remain free from injury from falls Outcome: Progressing Problem: Cardiovascular Goal: Maintains optimal cardiac output and hemodynamic stability Outcome: Progressing Goal: Absence of cardiac dysrhythmias or at baseline Outcome: Progressing Goal: Cardiovascular status will improve Outcome: Progressing Problem: Musculoskeletal Goal: Return mobility to safest level of function Outcome: Progressing Goal: Ability to perform activities at highest level will improve Outcome: Progressing Goal: Mobility, ROM and muscle strength will improve Outcome: Progressing Goals: Clinical Goals for the Shift: pt will remain HDS, monitor HR [employer] Patient Centered Goal for Treatment: Safe discharge Summary: Patient verbalized understanding of care plan and is participating in care. Will continue to monitor patient's progress. * Plan of Care - Lou Parmar RN - 07/27/2024 1:39 PM CDT 07/27/24 1338 Discharge Planning Support System Family members Anticipated discharge level of care Private residence Does the patient need discharge transport arranged? No (Sister for transportation) Post Acute Care Plan Home Care Services N/A OP Services N/A DME N/A Post Acute Care Facility N/A CM Progression of Care Update Per Medical Chart/Rounds/IDR: Patient is not medically ready for discharge. ADD: 08/03/24 Discharge Barriers: GT planned for today. Pending EP recommendation - ICD vs home with Life Vest. Needs Identified (plan): Patient's sister prefers patient to be discharged home. ID changed antibiotic to Dalbavancin 1500mg. Patient received first dose on 07/26 and will need re-dose in one week. [facility] notified that [facility] services are no longer needed. No other referrals have been made at this time. F/U Appointments: To be made closer to discharge. Plan for weekend discharge: No plans for weekend discharge. No weekend CM needs identified. Patient's Identified Problem/Goal Problem:?Ensure acute medical needs are met and that patient has a safe discharge plan. Goal:?Secure a discharge plan that patient/family are agreeable with?and ensure patient has continuum of care. Patient and/or family are agreeable with plan. medical clinic manager will continue to follow and assist withdischarge planning as needed. If any further discharge needs arise, please contact the covering senior case manager. BABAK Aguilar, online content developer For emergency needs after 4:30 pm, please call the sybase developer . For weekend/holiday needs from 8:00a.m. - 4:30p.m., please check the treatment team in [facility] for theassigned senior case manager or contact the weekend Case Management phone . * Plan of Care - Karime Ruth RN - 07/27/2024 11:10 AM CDT Goals: Clinical Goals for the Shift: pt will remain HDS, [employer] Manager Patient Centered Goal for Treatment: Safe discharge Summary: Pt verbalized understanding and is participating in plan. Will continue to monitor. Problem: Fall Risk Goal: Ability to state ways to decrease the risk of falls will improve Outcome: Progressing * Plan of Care - Rony Naylor RN - 07/26/2024 11:11 PM CDT Problem: Skin Integrity Impairment Risk Goal: Mobility will improve Outcome: Progressing Goal: Understanding of ways to prevent future skin breakdown will improve Outcome: Progressing Goal: Nutritional status will improve Outcome: Progressing Goal: Risk for impaired skin integrity will decrease Outcome: Progressing Problem: Fall Risk Goal: Ability to state ways to decrease the risk of falls will improve Outcome: Progressing Goal: Will remain free from falls Outcome: Progressing Goal: Will remain free from injury from falls Outcome: Progressing Problem: Cardiovascular Goal: Maintains optimal cardiac output and hemodynamic stability Outcome: Progressing Goal: Absence of cardiac dysrhythmias or at baseline Outcome: Progressing Goal: Cardiovascular status will improve Outcome: Progressing Problem: Musculoskeletal Goal: Return mobility to safest level of function Outcome: Progressing Goal: Ability to perform activities at highest level will improve Outcome: Progressing Goal: Mobility, ROM and muscle strength will improve Outcome: Progressing Goals: Clinical Goals for the Shift: pt will remain HDS, Residential Patient Centered Goal for Treatment: Safe discharge Summary: Patient verbalized understanding of care plan and is participating in care. Will continue to monitor patient's progress. * Plan of Care - Lucila Figueroa RN - 07/26/2024 9:50 AM CDT Problem: Skin Integrity Impairment Risk Goal: Mobility will improve Outcome: Progressing Goal: Understanding of ways to prevent future skin breakdown will improve Outcome: Progressing Goal: Nutritional status will improve Outcome: Progressing Goal: Risk for impaired skin integrity will decrease Outcome: Progressing Problem: Fall Risk Goal: Ability to state ways to decrease the risk of falls will improve Outcome: Progressing Goal: Will remain free from falls Outcome: Progressing Goal: Will remain free from injury from falls Outcome: Progressing Problem: Cardiovascular Goal: Maintains optimal cardiac output and hemodynamic stability Outcome: Progressing Goal: Absence of cardiac dysrhythmias or at baseline Outcome: Progressing Goal: Cardiovascular status will improve Outcome: Progressing Problem: Musculoskeletal Goal: Return mobility to safest level of function Outcome: Progressing Goal: Ability to perform activities at highest level will improve Outcome: Progressing Goal: Mobility, ROM and muscle strength will improve Outcome: Progressing Problem: Infection Goal: Absence of infection during hospitalization Outcome: Progressing Problem: Metabolic/Fluid and Electrolytes Goal: Electrolytes maintained within normal limits Outcome: Progressing Goal: Hemodynamic stability and optimal renal function maintained Outcome: Progressing Goal: Glucose maintained within prescribed range Outcome: Progressing Problem: Discharge Planning Goal: Understanding discharge needs will improve Outcome: Progressing Problem: Lack of Knowledge Goal: Ability to develop a pain control plan will improve Outcome: Progressing Problem: Medication Goal: Satisfaction with pain management medication regimen will improve Outcome: Progressing Problem: Sensory Goal: Ability to identify factors that increase pain levels will improve while working to decrease the patient's pain levels Outcome: Progressing Problem: Coping Goal: Ability to cope will improve Outcome: Progressing Problem: Health Behavior Goal: Identification of resources available to assist in meeting health care needs will improve Outcome: Progressing Problem: Neurosensory Goal: Achieves maximal functionality and self care Outcome: Progressing Problem: Skin/Tissue Integrity Goal: Skin integrity remains intact Outcome: Progressing Goal: Incisions, wounds, or drain sites healing without S/S of infection Outcome: Progressing Problem: Gastrointestinal Goal: Minimal or absence of nausea and vomiting Outcome: Progressing Goal: Maintains or returns to baseline bowel function Outcome: Progressing Goal: Maintains adequate nutritional intake Outcome: Progressing Problem: Genitourinary Goal: Absence of urinary retention Outcome: Progressing Problem: Lack of Knowledge Goal: Ability to describe self care measures that may prevent or decrease complications related to Type 2 Diabetes will improve Outcome: Progressing Problem: Health Nutrition Goal: Nutritional intake and knowledge related to Diabetes will improve Outcome: Progressing Problem: Respiratory Goal: Mechanical Ventilation will be safely managed Outcome: Progressing Goals: Clinical Goals for the Shift: Patient will maintain stable vital signs Residential Patient Centered Goal for Treatment: Safe discharge Summary: * Plan of Care - Mia Montes - 07/25/2024 8:38 PM CDT Goals: Clinical Goals for the Shift: Patient remains HDS and free of falls [employer] Manager Patient Centered Goal for Treatment: Safe discharge Summary: Plan of care reviewed with patient. All questions answered. Problem: Skin Integrity Impairment Risk Goal: Mobility will improve Outcome: Progressing Goal: Understanding of ways to prevent future skin breakdown will improve Outcome: Progressing Goal: Nutritional status will improve Outcome: Progressing Goal: Risk for impaired skin integrity will decrease Outcome: Progressing Problem: Fall Risk Goal: Ability to state ways to decrease the risk of falls will improve Outcome: Progressing Goal: Will remain free from falls Outcome: Progressing Goal: Will remain free from injury from falls Outcome: Progressing Problem: Cardiovascular Goal: Maintains optimal cardiac output and hemodynamic stability Outcome: Progressing Goal: Absence of cardiac dysrhythmias or at baseline Outcome: Progressing Goal: Cardiovascular status will improve Outcome: Progressing Problem: Musculoskeletal Goal: Return mobility to safest level of function Outcome: Progressing Goal: Ability to perform activities at highest level will improve Outcome: Progressing Goal: Mobility, ROM and muscle strength will improve Outcome: Progressing Problem: Infection Goal: Absence of infection during hospitalization Outcome: Progressing Problem: Metabolic/Fluid and Electrolytes Goal: Electrolytes maintained within normal limits Outcome: Progressing Goal: Hemodynamic stability and optimal renal function maintained Outcome: Progressing Goal: Glucose maintained within prescribed range Outcome: Progressing Problem: Discharge Planning Goal: Understanding discharge needs will improve Outcome: Progressing Problem: Lack of Knowledge Goal: Ability to develop a pain control plan will improve Outcome: Progressing Problem: Medication Goal: Satisfaction with pain management medication regimen will improve Outcome: Progressing Problem: Sensory Goal: Ability to identify factors that increase pain levels will improve while working to decrease the patient's pain levels Outcome: Progressing Problem: Coping Goal: Ability to cope will improve Outcome: Progressing Problem: Health Behavior Goal: Identification of resources available to assist in meeting health care needs will improve Outcome: Progressing Problem: Neurosensory Goal: Achieves maximal functionality and self care Outcome: Progressing Problem: Skin/Tissue Integrity Goal: Skin integrity remains intact Outcome: Progressing Goal: Incisions, wounds, or drain sites healing without S/S of infection Outcome: Progressing Problem: Gastrointestinal Goal: Minimal or absence of nausea and vomiting Outcome: Progressing Goal: Maintains or returns to baseline bowel function Outcome: Progressing Goal: Maintains adequate nutritional intake Outcome: Progressing Problem: Genitourinary Goal: Absence of urinary retention Outcome: Progressing Problem: Lack of Knowledge Goal: Ability to describe self care measures that may prevent or decrease complications related to Type 2 Diabetes will improve Outcome: Progressing Problem: Health Nutrition Goal: Nutritional intake and knowledge related to Diabetes will improve Outcome: Progressing Problem: Respiratory Goal: Mechanical Ventilation will be safely managed Outcome: Progressing * Plan of Frank - Jessica Lan RN - 07/25/2024 3:30 PM CDT Infusion referral received. Will need to asses patient and/or family for home infusion appropriateness, verify benefits for home infusion, and educate patient/family on home infusion process. Referrals are processed between 8am - 4:30pm Tuesday - Tuesday. For after hour emergencies, please call [phone]. Any referrals received after 4pm will be processed the next day. For discharge planning purposes, please keep in mind that referrals can take 24 or more hours to process. Patient's insurance is OON. I will outsource this infusion referral. 1540: Per team discussion, patient will not have home infusion needs at discharge. it project coordinator now signing off. Jessica Lan, head mixerPearl Cutter [facility] [phone] * Plan of Care - Liz Vasquez RN - 07/25/2024 12:06 PM CDT 07/25/24 1204 Discharge Planning Support System Family members (Dilia Moise (Sister) [phone]) Anticipated discharge level of alf health care Does the patient need discharge transport arranged? No Post Acute Care Plan Home Care Services Yes Type of Home Care Services Home infusion Home Care Services Name and Phone Number referral sent to [facility] - pending response DME N/A Post Acute Care Facility N/A CM Progression of Care Update Per Medical Chart/Rounds/IDR: Per treatment team, patient will get an echo completed on 07/27. ADD: 08/03 Discharge Barriers: medical readiness Education Needs Identified (plan): CM sent referral to [facility] through [facility] on 07/25. Pending response. Patient is anticipated to dc with IV abx- Cefazolin 2g q 8. Patient recommended for SNF. Patient's sisterDilia contacted treatment team about change in decision and wanting to go home with OK at dc. F/U Appointments: to be made prior to dc Patient's Identified Problem/Goal Problem:?Ensure acute medical needs are met and that patient has a safe discharge plan. Goal:?Secure a discharge plan that patient/family are agreeable with?and ensure patient has continuum of care. Patient and/or family are agreeable with plan. medical clinic manager will continue to follow and assist with discharge planning as needed. If any further discharge needs arise, please contact the covering senior case manager. * Plan of Care - Lucila Figueroa E., RN - 07/25/2024 10:03 AM CDT Problem: Skin Integrity Impairment Risk Goal: Mobility will improve Outcome: Ongoing Goal: Understanding of ways to prevent future skin breakdown will improve Outcome: Ongoing Goal: Nutritional status will improve Outcome: Ongoing Goal: Risk for impaired skin integrity will decrease Outcome: Ongoing Problem: Fall Risk Goal: Ability to state ways to decrease the risk of falls will improve Outcome: Ongoing Goal: Will remain free from falls Outcome: Ongoing Goal: Will remain free from injury from falls Outcome: Ongoing Problem: Cardiovascular Goal: Maintains optimal cardiac output and hemodynamic stability Outcome: Ongoing Goal: Absence of cardiac dysrhythmias or at baseline Outcome: Ongoing Goal: Cardiovascular status will improve Outcome: Ongoing Problem: Musculoskeletal Goal: Return mobility to safest level of function Outcome: Ongoing Goal: Ability to perform activities at highest level will improve Outcome: Ongoing Goal: Mobility, ROM and muscle strength will improve Outcome: Ongoing Problem: Infection Goal: Absence of infection during hospitalization Outcome: Ongoing Problem: Metabolic/Fluid and Electrolytes Goal: Electrolytes maintained within normal limits Outcome: Ongoing Goal: Hemodynamic stability and optimal renal function maintained Outcome: Ongoing Goal: Glucose maintained within prescribed range Outcome: Ongoing Problem: Discharge Planning Goal: Understanding discharge needs will improve Outcome: Ongoing Problem: Lack of Knowledge Goal: Ability to develop a pain control plan will improve Outcome: Ongoing Problem: Medication Goal: Satisfaction with pain management medication regimen will improve Outcome: Ongoing Problem: Sensory Goal: Ability to identify factors that increase pain levels will improve while working to decrease the patient's pain levels Outcome: Ongoing Problem: Coping Goal: Ability to cope will improve Outcome: Ongoing Problem: Health Behavior Goal: Identification of resources available to assist in meeting health care needs will improve Outcome: Ongoing Problem: Neurosensory Goal: Achieves maximal functionality and self care Outcome: Ongoing Problem: Skin/Tissue Integrity Goal: Skin integrity remains intact Outcome: Ongoing Goal: Incisions, wounds, or drain sites healing without S/S of infection Outcome: Ongoing Problem: Gastrointestinal Goal: Minimal or absence of nausea and vomiting Outcome: Ongoing Goal: Maintains or returns to baseline bowel function Outcome: Ongoing Goal: Maintains adequate nutritional intake Outcome: Ongoing Problem: Genitourinary Goal: Absence of urinary retention Outcome: Ongoing Problem: Lack of Knowledge Goal: Ability to describe self care measures that may prevent or decrease complications related to Type 2 Diabetes will improve Outcome: Ongoing Problem: Health Nutrition Goal: Nutritional intake and knowledge related to Diabetes will improve Outcome: Ongoing Problem: Respiratory Goal: Mechanical Ventilation will be safely managed Outcome: Ongoing Goals: Clinical Goals for the Shift: Patient will maintain stable vital signs Residential Patient Centered Goal for Treatment: Patient will be pain free and stable Summary: * Pre-Procedure Note - Stuart Olguin MD - 07/25/2024 8:13 AM CDT PRE-SEDATION ASSESSMENT/H&P Patient is a 63 y.o. female with chief complaint of bacteremia requiring antibiotics. 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 Patient presenting to IR for placement of Vale for antibiotics via the left side after failed PICC line attempts. PMH: Patient Active Problem List Diagnosis Date Noted Osteomyelitis ([facility]) 07/07/2024 Ventricular tachycardia ([facility]) 06/11/2024 Chronic diastolic congestive heart failure ([facility]) ([facility]) 06/11/2024 Endocarditis 06/11/2024 Urinary frequency 06/11/2024 Gastroesophageal reflux disease without esophagitis 06/11/2024 Paroxysmal atrial fibrillation ([facility]) ([facility]) 06/11/2024 Major depressive disorder 06/11/2024 CKD (chronic kidney disease) 06/11/2024 Traumatic hematoma of right upper arm 06/06/2024 Hypotension due to drugs 06/06/2024 SOB (shortness of breath) 05/30/2024 Acute on chronic systolic congestive heart failure ([facility]) ([facility]) 05/30/2024 Neck pain 05/30/2024 Hyponatremia 05/30/2024 Chronic a-fib ([facility]) ([facility]) 05/30/2024 Controlled type 2 diabetes mellitus with chronic kidney disease, with long-term current use of insulin ([facility]) 05/30/2024 Hypothyroidism 05/30/2024 JOSE (obstructive sleep apnea) 05/30/2024 Diabetes mellitus with hyperglycemia ([facility]) 05/30/2024 Endocarditis 05/29/2024 History of Sedation/Anesthesia Complications: No History of Difficult Airway: No HISTORY PSH Past Surgical History: Procedure Laterality Date CARDIAC DEFIBRILLATOR PLACEMENT CHOLECYSTECTOMY INSERT / REPLACE / REMOVE PACEMAKER IR PICC LINE PLACEMENT > 5 YEARS N/A 06/05/2024 OTHER SURGICAL HISTORY 05/31/2024 GT/CARDIOVERSION Social History: Social History Tobacco Use Smoking status: Never Smokeless tobacco: Never Substance and Sexual Activity Drug use: None Sexual activity: None Alcohol Use: Not At Risk (06/01/2024) AUDIT-C Frequency of Alcohol Consumption: Never Average Number of Drinks: Patient does not drink Frequency of Binge Drinking: Never Family History: No family history on file. REVIEW OF SYSTEMS: Review of systems per HPI and otherwise all other systems are negative MEDICATIONS Current Meds: Current Facility-Administered Medications: acetaminophen (TYLENOL) tablet 650 mg, 650 mg, oral, Q4H PRN, Marylou Saravia MD, 650 mgat 07/23/24 1133 apixaban (ELIQUIS) tablet 5 mg, 5 mg, oral, Q12H [facility] Clare, MD, 5 mg at 07/24/24 2211 Carrier Fluids for Secondary Infusion - 0.9% Sodium Chloride, 30 mL, intravenous, PRN, Marylou Saravia MD ceFAZolin (ANCEF) 2,000 mg/20 mL in sterile water (premix) 2,000 mg, 2,000 mg, intravenous, Q8H GALINA, Marylou Saravia MD, 2,000 mg at 07/25/24 0519 cyclobenzaprine (FLEXERIL) tablet 5 mg, 5 mg, oral, TID PRN, Marylou Saravia MD, 5 mg at1 1133 dextrose gel in packet 15 g, 15 g, oral, Q15 Min PRN OR dextrose (D10W) 10% bolus 250 mL, 250 mL, intravenous, Q15 Min PRN, Marylou Saravia MD escitalopram (LEXAPRO) tablet 10 mg, 10 mg, oral, Daily, Marylou Saravia MD, 10 mg at 07/24/24 0935 furosemide (LASIX) tablet 40 mg, 40 mg, oral, Daily, Marylou Saravia MD, 40 mg at 07/24/24 0933 glucagon injection 1 mg, 1 mg, intramuscular, Q30 Min PRN, Marylou Saravia MD, 1 mg at 07/21/24 1420 insulin glargine (LANTUS, SEMGLEE) 100 unit/mL injection 26 Units, 26 Units, subcutaneous, QAM, Valentina Brown MD, 26 Units at 07/24/24 0936 insulin lispro (HumaLOG, ADMELOG) 100 unit/mL injection 0-10 Units, 0-10 Units, subcutaneous, TID with meals, Valentina Brown MD, 6 Units at 07/24/24 1125 insulin lispro (HumaLOG, ADMELOG) 100 unit/mL injection 0-5 Units, 0-5 Units, subcutaneous, Nightly, Valentina Brown MD, 2 Units at 07/23/24 2041 insulin lispro (HumaLOG, ADMELOG) 100 unit/mL injection 11 Units, 11 Units, subcutaneous, TID with meals, Valentina Brown MD, 11 Units at 07/24/24 1124 levothyroxine (SYNTHROID) tablet 75 mcg, 75 mcg, oral, Daily - 0600, Marylou Saravia MD,75 mcg at 07/25/24 0519 lidocaine (ASPERCREME) 4 % patch 1 patch, 1 patch, transdermal, Q24H, Becca Wilcox MD, 1 patch at 07/24/24 1554 lidocaine (LMX) 4 % cream 1 Application, 1 Application, topical, QID PRN, Scales, Ce Lynn MD magnesium oxide (MAG-OX) tablet 400 mg, 400 mg, oral, Daily, Marylou Saravia MD, 400 mg at 07/24/24 0935 metoprolol XL (TOPROL-XL) extended release tablet 75 mg, 75 mg, oral, Daily, Becca Wilcox MD, 75 mg at 07/24/24 0933 mirabegron ER (MYRBETRIQ) extended release tablet 25 mg, 25 mg, oral, Daily, Marylou Saravia MD, 25 mg at 07/24/24 0933 nortriptyline (PAMELOR) capsule 10 mg, 10 mg, oral, Nightly, Valentina Brown MD, 10 mg at1 2211 ondansetron ODT (ZOFRAN-ODT) disintegrating tablet 4 mg, 4 mg, oral, Q6H PRN OR ondansetron (ZOFRAN) injection 4 mg, 4 mg, intravenous, Q6H PRN, Marylou Saravia MD, 4 mg at 07/13/[address] (PROTONIX) extended release tablet 20 mg, 20 mg, oral, Daily, Marylou Saravia MD, 20 mg at 07/24/24 0932 polyethylene glycol (MIRALAX) packet 17 g, 17 g, oral, Daily PRN, Marylou Saravia MD, 17g at 07/21/24 1422 ramelteon (ROZEREM) tablet 8 mg, 8 mg, oral, Nightly PRN, Marylou Saravia MD, 8 mg at 07/14/24 2134 sacubitriL-valsartan (ENTRESTO) 24-26 mg tablet 1 tablet, 1 tablet, oral, BID, Marylou Saravia MD, 1 tablet at 07/24/24 2211 senna-docusate (PERICOLACE) 8.6-50 mg per tablet 1 tablet, 1 tablet, oral, BID, Marylou Saravia MD, 1 tablet at 07/24/24 2211 sodium chloride 0.9% flush 0.5-20 mL, 0.5-20 mL, intra-catheter, Q8H GALINAManjit Paige Elizabeth, MD, 10 mL at 07/25/24 0519 sodium chloride 0.9% flush 0.5-20 mL, 0.5-20 mL, intra-catheter, PRN, Marylou Saravia MD sodium chloride 0.9% flush 5-10 mL, 5-10 mL, intra-catheter, Q12H GALINA, Valentina Brown MD, 10 mL at 07/24/24 1150 sodium chloride 0.9% flush 5-20 mL, 5-20 mL, intra-catheter, PRN, Valentina Brown MD spironolactone (ALDACTONE) split tablet 12.5 mg, 12.5 mg, oral, Daily, Valentina Brown MD, 12.5 mg at 07/24/24 0935 Home Meds: HOME MEDICATIONS : albuterol HFA (PROVENTIL HFA,VENTOLIN HFA,PROAIR HFA) 90 mcg/actuation inhaler BASAGLAR 100 unit/mL (3 mL) pen for injection cholecalciferol (VITAMIN D-3) 5,000 unit tablet docusate sodium (COLACE) 100 mg capsule Entresto 24-26 mg tablet escitalopram (LEXAPRO) 10 mg tablet Farxiga 10 mg tablet ferrous sulfate 325 mg (65 mg of elemental iron) tablet fluticasone propionate (FLONASE) 50 mcg/actuation nasal spray Gemtesa 75 mg tablet insulin lispro (HumaLOG) 100 unit/mL pen for injection levothyroxine (SYNTHROID) 75 mcg tablet magnesium oxide (MAG-OX) 400 mg (241.3 mg elemental magnesium) tablet metoprolol XL (TOPROL-XL) 50 mg extended release tablet midodrine (PROAMATINE) 5 mg tablet multivit accekulj-pmpp-TN-calcium (THERA-M) 9 mg iron-400 mcg tablet nortriptyline (PAMELOR) 10 mg capsule omeprazole (PriLOSEC) 20 mg capsule pen needle, diabetic 32 gauge x 5/32 needle potassium chloride ER 20 mEq CR tablet Xarelto 20 mg tablet Allergies: Allergies Allergen Reactions Sulfa (Sulfonamide Antibiotics) Vitals: Vitals: 07/24/24 1540 07/24/24 2230 07/25/24 0520 07/25/24 0700 BP: 147/77 135/71 BP Location: Left arm Patient Position: Lying Pulse: 106 102 82 Resp: 20 20 Temp: 36.4 ??C (97.5 ??F) 36.5 ??C (97.7 ??F) TempSrc: Oral Oral SpO2: 100% 100% Weight: 108.4 kg (239 lb) Height: LABS Pertinent Labs: Recent Labs Lab Units 07/24/24223007/23/24203907/20/242022 WBC K/cumm 6.7 5.4 5.1 HEMOGLOBIN g/dL 12.1 11.6* 11.2* HEMATOCRIT % 36.5 36.1 34.8* PLATELETS K/cumm 333 319 279 Recent Labs Lab Units 07/24/241 07/23/24203907/20/242022 SODIUM mmol/L 135 136 139 POTASSIUM PLASMA mmol/L 4.3 4.2 4.5 CHLORIDE mmol/L 98 98 101 CO2 mmol/L 27 27 BUN SERUM mg/dL 22 25 22 CREATININE mg/dL 0.84 1.05 0.94 CALCIUM mg/dL 9.6 9.0 9.8 AST Units/L 27 33 29 ALT Units/L 9 12 7 Recent Labs Lab Units 07/24/242230 PROTIME (PT) sec 13.2* INR 1.22* IMAGING Reviewed PERTINENT PHYSICAL EXAM Constitutional: alert and oriented x3 and no acute distress Lungs: Normal expansion. Clear to auscultation. No rales, rhonchi, or wheezing. Heart: Heart sounds are normal. Regular rate and rhythm without murmur, gallop or rub. Assessment:Proceed with Vale placement Airway Exam: normal ASA Classification:Class 3: Patient with severe systemic disease Sedation Plan: Min Sedation Adjunctive Procedures: None NONE PO status: Last PO: NPO since midnight * Plan of Care - Mervat Thorpe RRT - 07/25/2024 12:37 AM CDT NPPV - REFUSED Situation: The patient was ordered on NPPV for Obstructive Sleep Apnea (JOSE). RT attempted to place the patient on their hospital provided NPPV machine. The patient did not care to wear their NPPV device, and REFUSED to wear. Plan: Provide nightly encouragement and coaching of benefits related to the use of NPPV. * Plan of Care - Ceasar Harper RN - 07/24/2024 9:32 PM CDT Problem: Skin Integrity Impairment Risk Goal: Mobility will improve Outcome: Progressing Goal: Understanding of ways to prevent future skin breakdown will improve Outcome: Progressing Goal: Nutritional status will improve Outcome: Progressing Goal: Risk for impaired skin integrity will decrease Outcome: Progressing Problem: Fall Risk Goal: Ability to state ways to decrease the risk of falls will improve Outcome: Progressing Goal: Will remain free from falls Outcome: Progressing Goal: Will remain free from injury from falls Outcome: Progressing Goals: Clinical Goals for the Shift: Stable VS [employer] Manager Patient Centered Goal for Treatment: Patient will be pain free and stable Summary: Lei is progressing * Plan of Care - Constanza Betancourt RN - 07/24/2024 5:55 PM CDT Goals: Clinical Goals for the Shift: Stable VS Residential Patient Centered Goal for Treatment: Patient will be pain free and stable Summary: Patient will remain hemodynamically stable. Patient will remain free from fall/injury. * Plan of Care - Mervat Thorpe, ANTHONY - 07/24/2024 12:45 AM CDT NPPV - REFUSED Situation: The patient was ordered on NPPV for Obstructive Sleep Apnea (JOSE). RT attempted to place the patient on their hospital provided NPPV machine. The patient did not care to wear their NPPV device, and REFUSED to wear. Plan: Provide nightly encouragement and coaching of benefits related to the use of NPPV. * Plan of Care - Ceasar Harper RN - 07/23/2024 8:54 PM CDT Problem: Skin Integrity Impairment Risk Goal: Mobility will improve Outcome: Progressing Goal: Understanding of ways to prevent future skin breakdown will improve Outcome: Progressing Goal: Nutritional status will improve Outcome: Progressing Goal: Risk for impaired skin integrity will decrease Outcome: Progressing Problem: Fall Risk Goal: Ability to state ways to decrease the risk of falls will improve Outcome: Progressing Goal: Will remain free from falls Outcome: Progressing Goal: Will remain free from injury from falls Outcome: Progressing Goals: Clinical Goals for the Shift: Pt will be free of pain [employer] Manager Patient Centered Goal for Treatment: Patient will be pain free and stable Summary: Lei is progressing * Plan of Care - Coleen Haynes RN - 07/23/2024 4:55 PM CDT Problem: Skin Integrity Impairment Risk Goal: Mobility will improve Outcome: Progressing Goal: Understanding of ways to prevent future skin breakdown will improve Outcome: Progressing Goal: Nutritional status will improve Outcome: Progressing Goal: Risk for impaired skin integrity will decrease Outcome: Progressing Problem: Fall Risk Goal: Ability to state ways to decrease the risk of falls will improve Outcome: Progressing Goal: Will remain free from falls Outcome: Progressing Goal: Will remain free from injury from falls Outcome: Progressing Problem: Skin/Tissue Integrity Goal: Skin integrity remains intact Outcome: Progressing Goal: Incisions, wounds, or drain sites healing without S/S of infection Outcome: Progressing Problem: Neurosensory Goal: Achieves maximal functionality and self care Outcome: Progressing Problem: Gastrointestinal Goal: Minimal or absence of nausea and vomiting Outcome: Progressing Goal: Maintains or returns to baseline bowel function Outcome: Progressing Goal: Maintains adequate nutritional intake Outcome: Progressing Problem: Genitourinary Goal: Absence of urinary retention Outcome: Progressing Problem: Respiratory Goal: Mechanical Ventilation will be safely managed Outcome: Progressing Problem: Discharge Planning Goal: Understanding discharge needs will improve Outcome: Progressing Problem: Sensory Goal: Ability to identify factors that increase pain levels will improve while working to decrease the patient's pain levels Outcome: Progressing Problem: Coping Goal: Ability to cope will improve Outcome: Progressing Problem: Lack of Knowledge Goal: Ability to describe self care measures that may prevent or decrease complications related to Type 2 Diabetes will improve Outcome: Progressing Problem: Health Nutrition Goal: Nutritional intake and knowledge related to Diabetes will improve Outcome: Progressing Goals: Clinical Goals for the Shift: Pt will be free of pain Residential Patient Centered Goal for Treatment: Patient will be pain free and stable Summary: Pt verbalized understanding of care plan and is participating in care. Will cont to monitor. * Plan of Care - Savannah Lucia RRT - 07/23/2024 2:17 AM CDT NPPV - REFUSED Situation: The patient was ordered on NPPV for Obstructive Sleep Apnea (JOSE). RT attempted to place the patient on their hospital provided NPPV machine. The patient did not care to wear their NPPV device, and REFUSED to wear. BROWN Harper, has been notified of their refusal. Plan: Continue to monitor the patient's status and try again if patient becomes distressed. * Plan of Care - Ceasar Harper RN - 07/23/2024 12:11 AM CDT Problem: Fall Risk Goal: Ability to state ways to decrease the risk of falls will improve Outcome: Progressing Goal: Will remain free from falls Outcome: Progressing Goal: Will remain free from injury from falls Outcome: Progressing Problem: Skin Integrity Impairment Risk Goal: Mobility will improve Outcome: Progressing Goal: Understanding of ways to prevent future skin breakdown will improve Outcome: Progressing Goal: Nutritional status will improve Outcome: Progressing Goal: Risk for impaired skin integrity will decrease Outcome: Progressing Goals: Clinical Goals for the Shift: Pt will be free of pain [employer] Manager Patient Centered Goal for Treatment: Patient will be pain free and stable Summary: Lei is progressing * Plan of Care - Coleen Haynse RN - 07/22/2024 5:48 PM CDT Problem: Skin Integrity Impairment Risk Goal: Mobility will improve Outcome: Progressing Goal: Understanding of ways to prevent future skin breakdown will improve Outcome: Progressing Goal: Nutritional status will improve Outcome: Progressing Goal: Risk for impaired skin integrity will decrease Outcome: Progressing Problem: Fall Risk Goal: Ability to state ways to decrease the risk of falls will improve Outcome: Progressing Goal: Will remain free from falls Outcome: Progressing Goal: Will remain free from injury from falls Outcome: Progressing Problem: Neurosensory Goal: Achieves maximal functionality and self care Outcome: Progressing Problem: Gastrointestinal Goal: Minimal or absence of nausea and vomiting Outcome: Progressing Goal: Maintains or returns to baseline bowel function Outcome: Progressing Goal: Maintains adequate nutritional intake Outcome: Progressing Problem: Genitourinary Goal: Absence of urinary retention Outcome: Progressing Problem: Respiratory Goal: Mechanical Ventilation will be safely managed Outcome: Progressing Problem: Lack of Knowledge Goal: Ability to develop a pain control plan will improve Outcome: Progressing Problem: Discharge Planning Goal: Understanding discharge needs will improve Outcome: Progressing Problem: Medication Goal: Satisfaction with pain management medication regimen will improve Outcome: Progressing Problem: Lack of Knowledge Goal: Ability to describe self care measures that may prevent or decrease complications related to Type 1 Diabetes will improve Outcome: Progressing Goal: Ability to describe self care measures that may prevent or decrease complications related to Type 2 Diabetes will improve Outcome: Progressing Problem: Health Nutrition Goal: Nutritional intake and knowledge related to Diabetes will improve Outcome: Progressing Goals: Clinical Goals for the Shift: Pt will be free of pain [employer] Patient Centered Goal for Treatment: Patient will be pain free and stable Summary: Pt verbalized understanding of care plan and is participating in care. Will cont to monitor. * Plan of Care - Savannah Lucia RRT - 07/22/2024 4:38 AM CDT NPPV - REFUSED Situation: The patient was ordered on NPPV for Obstructive Sleep Apnea (JOSE). RT attempted to place the patient on their hospital provided NPPV machine. The patient did not care to wear their NPPV device, and REFUSED to wear. BROWN Harper, has been notified of their refusal. Plan: Continue to monitor the patient's status and try again if patient becomes distressed. * Plan of Care - Ynes Garcia RN - 07/22/2024 12:22 AM CDT Goals: Clinical Goals for the Shift: Patient will remain HDS overnight Residential Patient Centered Goal for Treatment: Patient will be pain free and stable Summary: Problem: Skin Integrity Impairment Risk Goal: Mobility will improve Outcome: Ongoing Goal: Understanding of ways to prevent future skin breakdown will improve Outcome: Ongoing Goal: Nutritional status will improve Outcome: Ongoing Goal: Risk for impaired skin integrity will decrease Outcome: Ongoing Problem: Fall Risk Goal: Ability to state ways to decrease the risk of falls will improve Outcome: Ongoing Goal: Will remain free from falls Outcome: Ongoing Goal: Will remain free from injury from falls Outcome: Ongoing Problem: Discharge Planning Goal: Understanding discharge needs will improve Outcome: Ongoing Problem: Lack of Knowledge Goal: Ability to develop a pain control plan will improve Outcome: Ongoing Problem: Medication Goal: Satisfaction with pain management medication regimen will improve Outcome: Ongoing Problem: Sensory Goal: Ability to identify factors that increase pain levels will improve while working to decrease the patient's pain levels Outcome: Ongoing Problem: Coping Goal: Ability to cope will improve Outcome: Ongoing Problem: Health Behavior Goal: Identification of resources available to assist in meeting health care needs will improve Outcome: Ongoing Problem: Neurosensory Goal: Achieves maximal functionality and self care Outcome: Ongoing Problem: Skin/Tissue Integrity Goal: Skin integrity remains intact Outcome: Ongoing Goal: Incisions, wounds, or drain sites healing without S/S of infection Outcome: Ongoing Problem: Gastrointestinal Goal: Minimal or absence of nausea and vomiting Outcome: Ongoing Goal: Maintains or returns to baseline bowel function Outcome: Ongoing Goal: Maintains adequate nutritional intake Outcome: Ongoing Problem: Genitourinary Goal: Absence of urinary retention Outcome: Ongoing Problem: Lack of Knowledge Goal: Ability to describe self care measures that may prevent or decrease complications related to Type 1 Diabetes will improve Outcome: Ongoing Goal: Ability to describe self care measures that may prevent or decrease complications related to Type 2 Diabetes will improve Outcome: Ongoing Problem: Health Nutrition Goal: Nutritional intake and knowledge related to Diabetes will improve Outcome: Ongoing Problem: Respiratory Goal: Mechanical Ventilation will be safely managed Outcome: Ongoing * Plan of Care - Emily Root - 07/21/2024 5:25 PM CDT Goals: Clinical Goals for the Shift: Stable VS Residential Patient Centered Goal for Treatment: Patient will be pain free and stable Summary: patient did have hypoglycemic incident, but responded well to glucose intervention. She ischeerful this evening and compliant with care. VSS. No other needs voiced * Plan of Care - Liban Santiago RRT - 07/21/2024 12:25 AM CDT NPPV - REFUSED Situation: The patient was ordered on NPPV for Obstructive Sleep Apnea (JOSE). RT attempted to place the patient on their hospital provided NPPV machine. The patient did not care to wear their NPPV device, and REFUSED to wear. BROWN Harper, has been notified of their refusal. Plan: Continue to monitor the patient's status and try again if patient becomes distressed. * Plan of Care - Ceasar Harper RN - 07/20/2024 9:23 PM CDT Problem: Skin Integrity Impairment Risk Goal: Mobility will improve Outcome: Progressing Goal: Understanding of ways to prevent future skin breakdown will improve Outcome: Progressing Goal: Nutritional status will improve Outcome: Progressing Goal: Risk for impaired skin integrity will decrease Outcome: Progressing Problem: Fall Risk Goal: Ability to state ways to decrease the risk of falls will improve Outcome: Progressing Goal: Will remain free from falls Outcome: Progressing Goal: Will remain free from injury from falls Outcome: Progressing Goals: Clinical Goals for the Shift: Patient will remain hemodynamically stable Residential Patient Centered Goal for Treatment: Patient will be pain free and stable Summary: Lei is progressing * Plan of Care - Patricia Donnelly RN - 07/20/2024 9:30 AM CDT Problem: Skin Integrity Impairment Risk Goal: Mobility will improve Outcome: Progressing Goal: Understanding of ways to prevent future skin breakdown will improve Outcome: Progressing Goal: Nutritional status will improve Outcome: Progressing Goal: Risk for impaired skin integrity will decrease Outcome: Progressing Problem: Fall Risk Goal: Ability to state ways to decrease the risk of falls will improve Outcome: Progressing Goal: Will remain free from falls Outcome: Progressing Goal: Will remain free from injury from falls Outcome: Progressing Problem: Neurosensory Goal: Achieves maximal functionality and self care Outcome: Progressing Problem: Skin/Tissue Integrity Goal: Skin integrity remains intact Outcome: Progressing Goal: Incisions, wounds, or drain sites healing without S/S of infection Outcome: Progressing Problem: Gastrointestinal Goal: Minimal or absence of nausea and vomiting Outcome: Progressing Goal: Maintains or returns to baseline bowel function Outcome: Progressing Goal: Maintains adequate nutritional intake Outcome: Progressing Problem: Genitourinary Goal: Absence of urinary retention Outcome: Progressing Problem: Respiratory Goal: Mechanical Ventilation will be safely managed Outcome: Progressing Problem: Discharge Planning Goal: Understanding discharge needs will improve Outcome: Progressing Problem: Lack of Knowledge Goal: Ability to develop a pain control plan will improve Outcome: Progressing Problem: Medication Goal: Satisfaction with pain management medication regimen will improve Outcome: Progressing Problem: Sensory Goal: Ability to identify factors that increase pain levels will improve while working to decrease the patient's pain levels Outcome: Progressing Problem: Health Behavior Goal: Identification of resources available to assist in meeting health care needs will improve Outcome: Progressing Problem: Lack of Knowledge Goal: Ability to describe self care measures that may prevent or decrease complications related to Type 1 Diabetes will improve Outcome: Progressing Goal: Ability to describe self care measures that may prevent or decrease complications related to Type 2 Diabetes will improve Outcome: Progressing Problem: Health Nutrition Goal: Nutritional intake and knowledge related to Diabetes will improve Outcome: Progressing Goals: Clinical Goals for the Shift: Patient will remain hemodynamically stable Residential Patient Centered Goal for Treatment: Patient will be pain free and stable Summary: Patient sitting at bedside. Continues on IVPB antibiotics. Alert and oriented X2. * Consults, Subsequent - Son, Carmencita Moreno MD - 07/20/2024 8:07 AM CDT Psychiatry CL Service Progress Note CC: I miss my cats! Interval History: Ms. Rodriguez is awake and alert this morning. Reported having a good night. Denies feeling confused. Reports good mood without any concerns. She understands she needs to be here until next Tuesday to continue abx prior to replacement of ICD. She states she is looking forward to seeing her 2 cats when she gets out of here and eating Mong[place]ian food. She showed me photos of her cats. Medications: apixaban, 5 mg, oral, Q12H GALINA ceFAZolin, 2,000 mg, intravenous, Q8H GALINA escitalopram, 10 mg, oral, Daily furosemide, 40 mg, oral, Daily insulin glargine, 26 Units, subcutaneous, QAM insulin lispro, 0-10 Units, subcutaneous, TID with meals insulin lispro, 0-5 Units, subcutaneous, Nightly insulin lispro, 9 Units, subcutaneous, TID with meals levothyroxine, 75 mcg, oral, Daily - 0600 magnesium oxide, 400 mg, oral, Daily metoprolol XL, 75 mg, oral, Daily mirabegron ER, 25 mg, oral, Daily nortriptyline, 10 mg, oral, Nightly pantoprazole DR, 20 mg, oral, Daily sacubitriL-valsartan, 1 tablet, oral, BID senna-docusate, 1 tablet, oral, BID sodium chloride 0.9%, 0.5-20 mL, intra-catheter, Q8H GALINA spironolactone, 12.5 mg, oral, Daily PRN Medications Medication Dose Route Frequency Last Admin acetaminophen (TYLENOL) tablet 650 mg 650 mg oral Q4H PRN 650 mg at 07/20/24 0637 Carrier Fluids for Secondary Infusion - 0.9% Sodium Chloride 30 mL intravenous PRN cyclobenzaprine (FLEXERIL) tablet 5 mg 5 mg oral TID PRN 5 mg at 07/15/24 2219 dextrose gel in packet 15 g 15 g oral Q15 Min PRN Or dextrose (D10W) 10% bolus 250 mL 250 mL intravenous Q15 Min PRN glucagon injection 1 mg 1 mg intramuscular Q30 Min PRN lidocaine (LMX) 4 % cream 1 Application 1 Application topical QID PRN ondansetron ODT (ZOFRAN-ODT) disintegrating tablet 4 mg 4 mg oral Q6H PRN Or ondansetron (ZOFRAN) injection 4 mg 4 mg intravenous Q6H PRN 4 mg at 07/13/24 1728 polyethylene glycol (MIRALAX) packet 17 g 17 g oral Daily PRN ramelteon (ROZEREM) tablet 8 mg 8 mg oral Nightly PRN 8 mg at 07/14/24 2134 sodium chloride 0.9% flush 0.5-20 mL 0.5-20 mL intra-catheter PRN Physical Exam: Vitals: 07/20/24 0700 BP: Pulse: 91 Resp: Temp: SpO2: A physical exam was performed by the primary team and reviewed. Mental Status Exam: General Appearance and Behavior: appears older than stated age, child-like, sitting up in bed aftereating breakfast, no longer tearful or anxious-appearing, fair eye contact, psychomotor neutral, calm and cooperative Speech: normal rate, rhythm, volume, tone, amount, spontaneity, latency Thought Process: concrete Thought Content: no evidence of SI, HI, AVH, delusions; +future planning Mood: good Affect: euthymic, mood-congruent, stable Insight: fair Judgment: fair Sensorium: alert and oriented to self, [facility], [facility], July 2024, fall (not city or state, floor,date, day of week) Memory: intact to immediate recall, impaired to delayed recall (remembered 1/3 words after couple minutes; 2/3 words with prompting) Attention/Concentration: intact to conversation, but has difficulty with spelling and calculations at baseline -- appears at baseline Associations: concrete per conversation Language: intact to naming pen and watch; able to follow 3-step commands; unable to repeat No ifs,ands, or buts Fund of Knowledge: below average Lab/Radiology/Diagnostic Review: Laboratory review: Lab results in the last 24 hours: Recent Results (from the past 24 hour(s)) POCT glucose Collection Time: 07/19/24 12:11 PM Result Value Ref Range Glucose, POC 179 70 - 199 mg/dL POCT glucose Collection Time: 07/19/24 12:48 PM Result Value Ref Range Glucose, POC 222 (H) 70 - 199 mg/dL Creatinine, urine, random Collection Time: 07/19/24 12:59 PM Result Value Ref Range Creatinine Ur 70.4 mg/dL Sodium, urine, random Collection Time: 07/19/24 12:59 PM Result Value Ref Range Sodium, ur 85 mmol/L Urea nitrogen, urine, random Collection Time: 07/19/24 12:59 PM Result Value Ref Range Urea nitrogen, ur 374 mg/dL POCT glucose Collection Time: 07/19/24 5:03 PM Result Value Ref Range Glucose, POC 133 70 - 199 mg/dL POCT glucose Collection Time: 07/19/24 9:49 PM Result Value Ref Range Glucose, POC 207 (H) 70 - 199 mg/dL CBC without differential Collection Time: 07/19/24 9:57 PM Result Value Ref Range WBC 4.7 3.8 - 9.9 K/cumm Hgb 10.6 (L) 11.9 - 15.5 g/dL Hct 33.5 (L) 35.6 - 45.5 % Plt 259 150 - 400 K/cumm MPV 9.7 9.1 - 12.3 fL RBC 3.31 (L) 3.90 - 5.20 M/cumm MCV 101.2 (H) 81.3 - 96.4 fL MCH 32.0 27.1 - 33.3 pg MCHC 31.6 (L) 32.3 - 35.7 g/dL RDW CV 13.8 11.1 - 14.9 % RDW SD 51.0 (H) 35.7 - 48.1 fL NRBC abs 0.00 0.00 - 0.01 K/cumm Comprehensive metabolic panel Collection Time: 07/19/24 9:57 PM Result Value Ref Range Sodium 138 135 - 145 mmol/L Potassium, pl 5.0 (H) 3.3 - 4.9 mmol/L Chloride 98 97 - 110 mmol/L CO2 29 22 - 32 mmol/L Anion gap 11 2 - 15 mmol/L BUN 25 6 - 25 mg/dL Creatinine 1.09 0.60 - 1.10 mg/dL Glucose 192 70 - 199 mg/dL Calcium 9.3 8.5 - 10.3 mg/dL Bilirubin, total 0.2 0.1 - 1.2 mg/dL Protein, pl 7.2 6.5 - 8.5 g/dL Albumin 3.1 (L) 3.5 - 5.0 g/dL Alk phos 154 (H) 40 - 130 Units/L ALT 7 7 - 45 Units/L AST 33 10 - 45 Units/L Magnesium Collection Time: 07/19/24 9:57 PM Result Value Ref Range Magnesium 2.2 1.4 - 2.5 mg/dL eGFR Collection Time: 07/19/24 9:57 PM Result Value Ref Range eGFR 57 (L) >=60 mL/min/1.73 m2 PRIMARY DIAGNOSIS: IDD Assessment: Lei Rodriguez is a 63 y.o. 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 Psychiatry consulted for SI. Patient has a history of making suicidal statements while frustrated, but has never had intent or plan to act on these statements. Has not had suicide attempts. Patient's passive suicidal statements and aggressive behavior appear similar to prior episodes in the setting of poor frustration tolerance related to her IDD. Patient has remained future-oriented, and collateral confirms this is consistent with prior behavior and does not pose concern for acute risk of harm to self or others at this time. Per primary team, IM PRN antipsychotics have required security presence and physical holds, which have been especially anxiety-provoking to patient and further amplifying patient's frustration with hospitalization. They feel patient has not responded well to attempts at verbal de-escalations. I didnot recommend giving scheduled antipsychotics in this relatively antipsychotic-naive individual that is likely especially sensitive to neuroleptics given IDD and risk of QTc prolongation. Given patient's high level of irritability that was hindering her medical adherence which could be life-threatening (undertreatment of endocarditis with bacteremia, agitation leading to RVR, plan to replace ICD o n 1018 after completing 2 weeks of IV abx), patient was started on Klonopin 0.5mg BID with primary team having low suspicion for delirium. However, after 2 doses, patient's orientation and attention worsened, so Klonopin was stopped. After ~24 hours off Klonopin, patient has seemingly returned to her baseline cognitive status. Would avoid deliriogenic medications for this patient moving forward, including benzodiazepines, anticholinergic medications, and opioids. Recommendations: - Please avoid deliriogenic medications (benzodiazepines, opiates, anticholinergics) - For non-redirectable agitation, can give Haldol 2mg TID PRN PO or IM/IV - Monitor for delirium as patient is at high risk - Delirium precautions Patient should have window bed if possible Please minimize night time interruptions, including night time vital signs or PRN medications Please keep room dark at night and keep room well-lit, with window shades open during the day Provide glasses, hearing aids, dentures, etc as appropriate and tolerated for improved orientation Remove lines, drains, etc as soon as possible Avoid deliriogenic / anticholinergic / narcotic medications as much as possible - Outpatient, may want to consolidate Lexapro 10mg and nortriptyline 10mg into single serotonergic antidepressant to decrease polypharmacy Psychiatry consults will sign off. For questions, concerns, or to request a re- evaluation, please contact the Psychiatry Consult Service at [phone]. All recommendations preliminary until note has been cosigned/attested by a Psychiatry attending (Tuesday - Tuesday during regular business hours). Cosigned by Yon Rebolledo MD at 07/23/2024 1:52 PM CDT * Plan of Care - Mervat Thorpe RRT - 07/19/2024 11:19 PM CDT NPPV - REFUSED Situation: The patient was ordered on NPPV for Obstructive Sleep Apnea (JOSE). RT attempted to place the patient on their hospital provided NPPV machine. The patient did not care to wear their NPPV device, and REFUSED to wear. Plan: Provide nightly encouragement and coaching of benefits related to the use of NPPV. * Plan of Care - Ceasar Harper RN - 07/19/2024 9:26 PM CDT Problem: Skin Integrity Impairment Risk Goal: Mobility will improve Outcome: Progressing Goal: Understanding of ways to prevent future skin breakdown will improve Outcome: Progressing Goal: Nutritional status will improve Outcome: Progressing Goal: Risk for impaired skin integrity will decrease Outcome: Progressing Problem: Fall Risk Goal: Ability to state ways to decrease the risk of falls will improve Outcome: Progressing Goal: Will remain free from falls Outcome: Progressing Goal: Will remain free from injury from falls Outcome: Progressing Goals: Clinical Goals for the Shift: VSS, HDS, Pain Managment and Rest [employer] Patient Centered Goal for Treatment: New Pacemaker Summary: Lei is stable. * Plan of Care - Emily Root - 07/19/2024 10:39 AM CDT Goals: Clinical Goals for the Shift: VSS, HDS, Pain Managment and Rest Residential Patient Centered Goal for Treatment: New Pacemaker Summary: Patient ambulating in hallway with PT this am. She is more compliant today and trying to understand the importance of taking her medications. No distress noted. Heart rate up to 140's duringambulation. * Consults, Subsequent - Son, Carmencita Moreno MD - 07/19/2024 8:55 AM CDT Psychiatry CL Service Progress Note CC: I'm fine Interval History: Ms. Rodriguez received Klonopin 0.5mg last night and reportedly did well without behavioral issues. Received Klonopin 0.5mg this morning and has been calm. She was ambulating in hallway with PT and was noted to be more compliant with no distress noted by nursing. This morning on rounds patient wassleeping peacefully, so I did not wake her. I returned in afternoon, and she was still in bed. Reports good mood and no concerns. No mention of SI. Medications: apixaban, 5 mg, oral, Q12H GALINA ceFAZolin, 2,000 mg, intravenous, Q8H GALINA clonazePAM, 0.5 mg, oral, BID escitalopram, 10 mg, oral, Daily furosemide, 40 mg, oral, Daily insulin glargine, 26 Units, subcutaneous, QAM insulin lispro, 0-10 Units, subcutaneous, TID with meals insulin lispro, 0-5 Units, subcutaneous, Nightly insulin lispro, 9 Units, subcutaneous, TID with meals levothyroxine, 75 mcg, oral, Daily - 0600 magnesium oxide, 400 mg, oral, Daily metoprolol XL, 75 mg, oral, Daily mirabegron ER, 25 mg, oral, Daily nortriptyline, 10 mg, oral, Daily pantoprazole DR, 20 mg, oral, Daily sacubitriL-valsartan, 1 tablet, oral, BID senna-docusate, 1 tablet, oral, BID sodium chloride 0.9%, 0.5-20 mL, intra-catheter, Q8H GALINA spironolactone, 12.5 mg, oral, Daily PRN Medications Medication Dose Route Frequency Last Admin acetaminophen (TYLENOL) tablet 650 mg 650 mg oral Q4H PRN 650 mg at 07/18/242051 Carrier Fluids for Secondary Infusion - 0.9% Sodium Chloride 30 mL intravenous PRN cyclobenzaprine (FLEXERIL) tablet 5 mg 5 mg oral TID PRN 5 mg at 07/15/24 221 dextrose gel in packet 15 g 15 g oral Q15 Min PRN Or dextrose (D10W) 10% bolus 250 mL 250 mL intravenous Q15 Min PRN glucagon injection 1 mg 1 mg intramuscular Q30 Min PRN lidocaine (LMX) 4 % cream 1 Application 1 Application topical QID PRN ondansetron ODT (ZOFRAN-ODT) disintegrating tablet 4 mg 4 mg oral Q6H PRN Or ondansetron (ZOFRAN) injection 4 mg 4 mg intravenous Q6H PRN 4 mg at 07/13/24 1728 polyethylene glycol (MIRALAX) packet 17 g 17 g oral Daily PRN ramelteon (ROZEREM) tablet 8 mg 8 mg oral Nightly PRN 8 mg at 07/14/24 213 sodium chloride 0.9% flush 0.5-20 mL 0.5-20 mL intra-catheter PRN Physical Exam: Vitals: 07/18/241999 BP: 108/84 Pulse: 101 Resp: 19 Temp: 36.6 ??C (97.9 ??F) SpO2: 98% A physical exam was performed by the primary team and reviewed. Mental Status Exam: General Appearance and Behavior: appears stated age, resting calmly in bed, no longer tearful or anxious-appearing, fair eye contact, psychomotor neutral Speech: normal rate, rhythm, volume, tone, spontaneity, latency; decreased amount Thought Process: concrete Thought Content: no evidence of SI, HI, AVH, delusions Mood: fine Affect: euthymic, mood-congruent, stable Insight: fair Judgment: fair Sensorium: alert and oriented to self, hospital (not name of hospital, not floor, not city or state, nor month, date, year, day of week -- said it was 1942) Memory: impaired per conversation Attention/Concentration: not intact to conversation Associations: concrete per conversation Language: normal Fund of Knowledge: below average Lab/Radiology/Diagnostic Review: Laboratory review: Lab results in the last 24 hours: Recent Results (from the past 24 hour(s)) POCT glucose Collection Time: 07/18/24 5:16 PM Result Value Ref Range Glucose, POC 378 (H) 70 - 199 mg/dL POCT glucose Collection Time: 07/18/24 8:17 PM Result Value Ref Range Glucose, POC 304 (H) 70 - 199 mg/dL CBC without differential Collection Time: 07/18/24 9:07 PM Result Value Ref Range WBC 5.3 3.8 - 9.9 K/cumm Hgb 11.4 (L) 11.9 - 15.5 g/dL Hct 35.5 (L) 35.6 - 45.5 % Plt 257 150 - 400 K/cumm MPV 9.8 9.1 - 12.3 fL RBC 3.50 (L) 3.90 - 5.20 M/cumm MCV 101.4 (H) 81.3 - 96.4 fL MCH 32.6 27.1 - 33.3 pg MCHC 32.1 (L) 32.3 - 35.7 g/dL RDW CV 13.8 11.1 - 14.9 % RDW SD 51.6 (H) 35.7 - 48.1 fL NRBC abs 0.00 0.00 - 0.01 K/cumm Comprehensive metabolic panel Collection Time: 07/18/24 9:07 PM Result Value Ref Range Sodium 131 (L) 135 - 145 mmol/L Potassium, pl 4.5 3.3 - 4.9 mmol/L Chloride 95 (L) 97 - 110 mmol/L CO2 28 22 - 32 mmol/L Anion gap 8 2 - 15 mmol/L BUN 26 (H) 6 - 25 mg/dL Creatinine 1.66 (H) 0.60 - 1.10 mg/dL Glucose 251 (H) 70 - 199 mg/dL Calcium 9.6 8.5 - 10.3 mg/dL Bilirubin, total 0.3 0.1 - 1.2 mg/dL Protein, pl 7.8 6.5 - 8.5 g/dL Albumin 3.5 3.5 - 5.0 g/dL Alk phos 165 (H) 40 - 130 Units/L ALT 9 7 - 45 Units/L AST 30 10 - 45 Units/L Magnesium Collection Time: 07/18/24 9:07 PM Result Value Ref Range Magnesium 2.0 1.4 - 2.5 mg/dL eGFR Collection Time: 07/18/24 9:07 PM Result Value Ref Range eGFR 35 (L) >=60 mL/min/1.73 m2 Differential, auto Collection Time: 07/18/24 9:07 PM Result Value Ref Range Neutrophil abs 3.5 1.5 - 6.5 K/cumm Imm gran abs 0.1 0.0 - 0.1 K/cumm Lymphocyte abs 1.0 0.8 - 3.3 K/cumm Monocyte abs 0.7 0.2 - 0.8 K/cumm Eosinophil abs 0.2 0.0 - 0.5 K/cumm Basophil abs 0.1 0.0 - 0.1 K/cumm Neutrophil pct 63.5 % Imm gran pct 1.5 % Lymphocyte pct 18.2 % Monocyte pct 12.2 % Eosinophil pct 3.5 % Basophil pct 1.1 % CBC with auto differential Collection Time: 07/18/24 9:07 PM Result Value Ref Range WBC 5.3 3.8 - 9.9 K/cumm Hgb 11.4 (L) 11.9 - 15.5 g/dL Hct 35.5 (L) 35.6 - 45.5 % Plt 257 150 - 400 K/cumm MPV 9.8 9.1 - 12.3 fL RBC 3.50 (L) 3.90 - 5.20 M/cumm MCV 101.4 (H) 81.3 - 96.4 fL MCH 32.6 27.1 - 33.3 pg MCHC 32.1 (L) 32.3 - 35.7 g/dL RDW CV 13.8 11.1 - 14.9 % RDW SD 51.6 (H) 35.7 - 48.1 fL NRBC abs 0.00 0.00 - 0.01 K/cumm POCT glucose Collection Time: 07/19/24 12:11 PM Result Value Ref Range Glucose, POC 179 70 - 199 mg/dL POCT glucose Collection Time: 07/19/24 12:48 PM Result Value Ref Range Glucose, POC 222 (H) 70 - 199 mg/dL Creatinine, urine, random Collection Time: 07/19/24 12:59 PM Result Value Ref Range Creatinine Ur 70.4 mg/dL Sodium, urine, random Collection Time: 07/19/24 12:59 PM Result Value Ref Range Sodium, ur 85 mmol/L Urea nitrogen, urine, random Collection Time: 07/19/24 12:59 PM Result Value Ref Range Urea nitrogen, ur 374 mg/dL PRIMARY DIAGNOSIS: Delirium IDD Assessment: Lei Rodriguez is a 63 y.o. 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 Psychiatry consulted for SI. Patient has a history of making suicidal statements while frustrated, but has never had intent or plan to act on these statements. Has not had suicide attempts. Patient's passive suicidal statements and aggressive behavior appear similar to prior episodes in the setting of poor frustration tolerance related to her IDD. Patient remains future-oriented, and collateral confirms this is consistent with prior behavior and does not pose concern for acute risk of harm to self or others at this time. Per primary team, IM PRN antipsychotics have required security presence and physical holds, which have been especially anxiety-provoking to patient and further amplifying patient's frustration with hospitalization. They feel patient has not responded well to attempts at verbal de-escalations. I didnot recommend giving scheduled antipsychotics in this relatively antipsychotic-naive individual that is likely especially sensitive to neuroleptics given IDD and risk of QTc prolongation. Given patient's high level of irritability that was hindering her medical adherence which could be life-threatening (undertreatment of endocarditis with bacteremia, agitation leading to RVR, plan to replace ICD o n 1018 after completing 2 weeks of IV abx), patient was started on Klonopin 0.5mg BID with primary team having low suspicion for delirium. However, today, patient was not oriented to name of hospital, city, state, month, or year, which per sister, is unlike her. Also was distractible and required repeating questions. She has had fluctuating arousal as well. This fluctuation in attention, arousal,and orientation is concerning for delirium. However, it is also possible that patient was deliriousprior to administration of benzodiazepines, as this was not formally assessed. Given this concern, r ecommend stopping scheduled benzodiazepines and avoiding deliriogenic medications. UA ordered todayto assess for UTI -- on Ancef already but will depend on susceptibilities. Recommendations: - Stop scheduled Klonopin 0.5mg BID - For non-redirectable agitation, can give Haldol 2mg TID PRN PO or IM/IV. Only give Ativan 1mg PO or IM for severe agitation, but otherwise would avoid giving it as it can worsen delirium. - Delirium precautions Patient should have window bed if possible Please minimize night time interruptions, including night time vital signs or PRN medications Please keep room dark at night and keep room well-lit, with window shades open during the day Provide glasses, hearing aids, dentures, etc as appropriate and tolerated for improved orientation Remove lines, drains, etc as soon as possible Avoid deliriogenic / anticholinergic / narcotic medications as much as possible - Outpatient, may want to consolidate Lexapro 10mg and nortriptyline 10mg into single serotonergic antidepressant to decrease polypharmacy Psychiatry consults will continue to follow. For questions, concerns, or to request a re-evaluation, please contact the Psychiatry Consult Service at [phone]. All recommendations preliminary until note has been cosigned/attested by a Psychiatry attending (Tuesday - Tuesday during regular business hours). Cosigned by Yon Rebolledo MD at 07/19/2024 10:22 PM CDT * Plan of Care - Mervat Thorpe, FITNESS ASSISTANT - 07/19/2024 12:28 AM CDT NPPV - REFUSED Situation: The patient was ordered on NPPV for Obstructive Sleep Apnea (JOSE). RT attempted to place the patient on their hospital provided NPPV machine. The patient did not care to wear their NPPV device, and REFUSED to wear. Plan: Provide nightly encouragement and coaching of benefits related to the use of NPPV. * Plan of Care - Tracy Hamilton RN - 07/19/2024 12:13 AM CDT Problem: Skin Integrity Impairment Risk Goal: Mobility will improve Outcome: Progressing Goal: Understanding of ways to prevent future skin breakdown will improve Outcome: Progressing Goal: Nutritional status will improve Outcome: Progressing Goal: Risk for impaired skin integrity will decrease Outcome: Progressing Problem: Fall Risk Goal: Ability to state ways to decrease the risk of falls will improve Outcome: Progressing Goal: Will remain free from falls Outcome: Progressing Goal: Will remain free from injury from falls Outcome: Progressing Problem: Neurosensory Goal: Achieves maximal functionality and self care Outcome: Progressing Problem: Skin/Tissue Integrity Goal: Skin integrity remains intact Outcome: Progressing Goal: Incisions, wounds, or drain sites healing without S/S of infection Outcome: Progressing Problem: Discharge Planning Goal: Understanding discharge needs will improve Outcome: Progressing Goals: Clinical Goals for the Shift: VSS, HDS, Pain Managment and Rest Residential Patient Centered Goal for Treatment: New Pacemaker Summary: Patient resting in bed with eyes close. Respirations even and unlabored. C/o pain/ discomfort to lower back, PRN med provided. Tolerated all night medication without issues. Allowed nurse todraw blood and to take vital signs Call light and phone within reach. Safety measures in place. * Plan of Care - Eulalia Lawrence RN - 07/18/2024 4:34 PM CDT CM Progression of Care Update Per Medical Chart/Rounds/IDR: IDR ADD: 07/27/24. Not medically ready. Discharge Barriers: EP wants pt to stay IP for full IV abx course Education Needs Identified (plan):Plan TBD. Pt does not have capacity to make own decisions, Eliezer Moise is decision maker . F/U Appointments: TBD Patient's Identified Problem/Goal Problem:?Ensure acute medical needs are met and that patient has a safe discharge plan. Goal:?Secure a discharge plan that patient/family are agreeable with?and ensure patient has continuum of care. Patient and/or family are agreeable with plan. medical clinic manager will continue to follow and assist with discharge planning as needed. If any further discharge needs arise, please contact the covering senior case manager. * Plan of Care - Irma Covarrubias RN - 07/18/2024 8:00 AM CDT Goals: Clinical Goals for the Shift: patient will remain hemodynamically stable [employer] Manager Patient Centered Goal for Treatment: dc to an appropriate setting Problem: Skin Integrity Impairment Risk Goal: Mobility will improve Outcome: Progressing Goal: Understanding of ways to prevent future skin breakdown will improve Outcome: Progressing Goal: Nutritional status will improve Outcome: Progressing Goal: Risk for impaired skin integrity will decrease Outcome: Progressing Problem: Fall Risk Goal: Ability to state ways to decrease the risk of falls will improve Outcome: Progressing Goal: Will remain free from falls Outcome: Progressing Goal: Will remain free from injury from falls Outcome: Progressing Problem: Neurosensory Goal: Achieves maximal functionality and self care Outcome: Progressing Problem: Gastrointestinal Goal: Minimal or absence of nausea and vomiting Outcome: Progressing Goal: Maintains or returns to baseline bowel function Outcome: Progressing Goal: Maintains adequate nutritional intake Outcome: Progressing Problem: Genitourinary Goal: Absence of urinary retention Outcome: Progressing * Plan of Care - Amada Washington RN - 07/18/2024 12:46 AM CDT Problem: Skin Integrity Impairment Risk Goal: Mobility will improve Outcome: Progressing Goal: Understanding of ways to prevent future skin breakdown will improve Outcome: Progressing Goal: Nutritional status will improve Outcome: Progressing Goal: Risk for impaired skin integrity will decrease Outcome: Progressing Problem: Fall Risk Goal: Ability to state ways to decrease the risk of falls will improve Outcome: Progressing Goal: Will remain free from falls Outcome: Progressing Goal: Will remain free from injury from falls Outcome: Progressing Problem: Discharge Planning Goal: Understanding discharge needs will improve Outcome: Progressing Problem: Lack of Knowledge Goal: Ability to develop a pain control plan will improve Outcome: Progressing Problem: Medication Goal: Satisfaction with pain management medication regimen will improve Outcome: Progressing Problem: Sensory Goal: Ability to identify factors that increase pain levels will improve while working to decrease the patient's pain levels Outcome: Progressing Problem: Coping Goal: Ability to cope will improve Outcome: Progressing Problem: Health Behavior Goal: Identification of resources available to assist in meeting health care needs will improve Outcome: Progressing Problem: Neurosensory Goal: Achieves maximal functionality and self care Outcome: Progressing Problem: Skin/Tissue Integrity Goal: Skin integrity remains intact Outcome: Progressing Goal: Incisions, wounds, or drain sites healing without S/S of infection Outcome: Progressing Problem: Gastrointestinal Goal: Minimal or absence of nausea and vomiting Outcome: Progressing Goal: Maintains or returns to baseline bowel function Outcome: Progressing Goal: Maintains adequate nutritional intake Outcome: Progressing Problem: Genitourinary Goal: Absence of urinary retention Outcome: Progressing Problem: Lack of Knowledge Goal: Ability to describe self care measures that may prevent or decrease complications related to Type 1 Diabetes will improve Outcome: Progressing Goal: Ability to describe self care measures that may prevent or decrease complications related to Type 2 Diabetes will improve Outcome: Progressing Problem: Health Nutrition Goal: Nutritional intake and knowledge related to Diabetes will improve Outcome: Progressing Problem: Respiratory Goal: Mechanical Ventilation will be safely managed Outcome: Progressing Goals: Clinical Goals for the Shift: patient will remain hemodynamically stable [employer] Manager Patient Centered Goal for Treatment: dc to an appropriate setting Summary: Patient participating in care plan goals. Patient verbalized education and is progressing towards goals. * Plan of Care - Kacie Gale RRT - 07/18/2024 12:40 AM CDT NPPV - REFUSED Situation: The patient was ordered on NPPV for Obstructive Sleep Apnea (JOSE). RT attempted to place the patient on their hospital provided NPPV machine. The patient did not care to wear their NPPV device, and REFUSED to wear. BROWN Ybarra, has been notified of their refusal. Plan: Provide nightly encouragement and coaching of benefits related to the use of NPPV. * Initial Assessments - Best Vasquez RN - 07/17/2024 1:34 PM CDT CM Initial Assessment Interview Note Information Obtained From: Patient Name: sisters, Dilia oMise ([phone]) and Peg Rice ([phone]) (07/07/24414) in the room Admission Source: from [facility] ([facility]) Impression: 63 yo female admitted for positive blood cultures and concern for osteomyelitis Plan Includes: to establish a safe discharge plan, patient has PT OT recs for SNF Primary Source of Transportation: Does the patient need discharge transport arranged?: No (07/17/241332) Health Insurance Coverage: [employer] [place] Prescription Coverage: yes Pharmacy: [id number] - [facility] [id number] [place] [id number] Primary Care Provider: Oswaldo Serrano MD-pt cannot recall her PCP name Prior to Admission: Functional Status: Moderate assist with ADLs Primary Caregiver: Self Support System: Family members Home Care Services: No Durable Medical Equipment: Walker (wheeled), CPAP/Bi-PAP, Diabetic supplies Living Arrangements: Alone Type of Residence: Private residence Steps in home?: No steps inside or outside Number of steps outside: 2 steps (07/07/24414) SDOH: Transportation: Financial Resource: Housing: Utilities: Social Connections: Food Insecurity: Alcohol Use: PHQ Screening Potential discharge needs include: needs pending OP Services: Dialysis: no Behavioral Health Services: Behavioral Health Services: No (07/17/241332) Anticipated Level of Care: Anticipated discharge level of care: shelter facility (short term care) Pt/Family agrees with Anticipated Level of Care: Unknown (07/17/241332) Patient expects to be Discharged to: Private residence, (07/07/24414) Additional Information: Demographics verified with patient and sister Dilia on the phone. Patient is not a . Role of CM explained. Patient's Identified Problem/Goal Problem: Ensure acute medical needs are met and that patient has a safe discharge plan. Goal: Secure a discharge plan that patient/family are agreeable with and ensure patient has continuum of care. Case management will follow for discharge planning and send referrals as needed. Goals include: To assure continuity of care, To maximize coping skills, To assure patient is in a safe environment and To assure access to community resources. Plan includes: 1. Collaboration with Patient, Provider, Direct Care Nurse, Chemical Technician, and other members of theHealth Care Team to assure needed interventions completed. 2. Return patient to optimal level of self-care post discharge. 3. Boom Stick Worker will follow for Discharge Planning - interventions as needed 4. Anticipated level of care at discharge 5. Planned Discharge Disposition Best Vasquez RN * Plan of Care - Kelly Dunbar - 07/17/2024 10:29 AM CDT Problem: Skin Integrity Impairment Risk Goal: Mobility will improve Outcome: Progressing Problem: Fall Risk Goal: Ability to state ways to decrease the risk of falls will improve Outcome: Progressing Problem: Skin/Tissue Integrity Goal: Skin integrity remains intact Outcome: Progressing Problem: Neurosensory Goal: Achieves maximal functionality and self care Outcome: Progressing Problem: Gastrointestinal Goal: Maintains adequate nutritional intake Outcome: Progressing Problem: Discharge Planning Goal: Understanding discharge needs will improve Outcome: Progressing Problem: Respiratory Goal: Mechanical Ventilation will be safely managed Outcome: Progressing * Plan of Care - Kacie Gale RRT - 07/17/2024 1:42 AM CDT NPPV - REFUSED Situation: The patient was ordered on NPPV for Obstructive Sleep Apnea (JOSE). RT attempted to place the patient on their hospital provided NPPV machine. The patient did not care to wear their NPPV device, and REFUSED to wear. BROWN Sol, has been notified of their refusal. Plan: Provide nightly encouragement and coaching of benefits related to the use of NPPV. * Plan of Care - Amada Washington RN - 07/16/2024 9:29 PM CDT Problem: Skin Integrity Impairment Risk Goal: Mobility will improve Outcome: Progressing Goal: Understanding of ways to prevent future skin breakdown will improve Outcome: Progressing Goal: Nutritional status will improve Outcome: Progressing Goal: Risk for impaired skin integrity will decrease Outcome: Progressing Problem: Fall Risk Goal: Ability to state ways to decrease the risk of falls will improve Outcome: Progressing Goal: Will remain free from falls Outcome: Progressing Goal: Will remain free from injury from falls Outcome: Progressing Problem: Discharge Planning Goal: Understanding discharge needs will improve Outcome: Progressing Problem: Lack of Knowledge Goal: Ability to develop a pain control plan will improve Outcome: Progressing Problem: Medication Goal: Satisfaction with pain management medication regimen will improve Outcome: Progressing Problem: Sensory Goal: Ability to identify factors that increase pain levels will improve while working to decrease the patient's pain levels Outcome: Progressing Problem: Coping Goal: Ability to cope will improve Outcome: Progressing Problem: Health Behavior Goal: Identification of resources available to assist in meeting health care needs will improve Outcome: Progressing Problem: Neurosensory Goal: Achieves maximal functionality and self care Outcome: Progressing Problem: Skin/Tissue Integrity Goal: Skin integrity remains intact Outcome: Progressing Goal: Incisions, wounds, or drain sites healing without S/S of infection Outcome: Progressing Problem: Gastrointestinal Goal: Minimal or absence of nausea and vomiting Outcome: Progressing Goal: Maintains or returns to baseline bowel function Outcome: Progressing Goal: Maintains adequate nutritional intake Outcome: Progressing Problem: Genitourinary Goal: Absence of urinary retention Outcome: Progressing Problem: Lack of Knowledge Goal: Ability to describe self care measures that may prevent or decrease complications related to Type 1 Diabetes will improve Outcome: Progressing Goal: Ability to describe self care measures that may prevent or decrease complications related to Type 2 Diabetes will improve Outcome: Progressing Problem: Health Nutrition Goal: Nutritional intake and knowledge related to Diabetes will improve Outcome: Progressing Problem: Respiratory Goal: Mechanical Ventilation will be safely managed Outcome: Progressing Goals: Clinical Goals for the Shift: patient will remain hemodynamically stable Residential Patient Centered Goal for Treatment: dc to an appropriate setting Summary: Patient participating in care plan goals. Patient verbalized education and is progressing towards goals. * Plan of Frank - Kelly Dunbar - 07/16/2024 9:57 AM CDT Problem: Skin Integrity Impairment Risk Goal: Mobility will improve Outcome: Progressing Problem: Fall Risk Goal: Ability to state ways to decrease the risk of falls will improve Outcome: Progressing Problem: Genitourinary Goal: Absence of urinary retention Outcome: Progressing Problem: Gastrointestinal Goal: Maintains or returns to baseline bowel function Outcome: Progressing * Plan of Care - Wanda Kearns RRT - 07/16/2024 1:47 AM CDT NPPV - REFUSED Situation: The patient was ordered on NPPV for Obstructive Sleep Apnea (JOSE). RT attempted to place the patient on their hospital provided NPPV machine. The patient did not care to wear their NPPV device, and REFUSED to wear. Plan: Provide nightly encouragement and coaching of benefits related to the use of NPPV. * Plan of Care - Jennie Estevez RN - 07/15/2024 7:44 PM CDT Problem: Skin Integrity Impairment Risk Goal: Mobility will improve Outcome: Progressing Goal: Understanding of ways to prevent future skin breakdown will improve Outcome: Progressing Goal: Nutritional status will improve Outcome: Progressing Goal: Risk for impaired skin integrity will decrease Outcome: Progressing Problem: Fall Risk Goal: Ability to state ways to decrease the risk of falls will improve Outcome: Progressing Goal: Will remain free from falls Outcome: Progressing Goal: Will remain free from injury from falls Outcome: Progressing Problem: Discharge Planning Goal: Understanding discharge needs will improve Outcome: Progressing Problem: Lack of Knowledge Goal: Ability to develop a pain control plan will improve Outcome: Progressing Problem: Medication Goal: Satisfaction with pain management medication regimen will improve Outcome: Progressing Problem: Sensory Goal: Ability to identify factors that increase pain levels will improve while working to decrease the patient's pain levels Outcome: Progressing Problem: Coping Goal: Ability to cope will improve Outcome: Progressing Problem: Health Behavior Goal: Identification of resources available to assist in meeting health care needs will improve Outcome: Progressing Problem: Neurosensory Goal: Achieves maximal functionality and self care Outcome: Progressing Problem: Skin/Tissue Integrity Goal: Skin integrity remains intact Outcome: Progressing Goal: Incisions, wounds, or drain sites healing without S/S of infection Outcome: Progressing Problem: Gastrointestinal Goal: Minimal or absence of nausea and vomiting Outcome: Progressing Goal: Maintains or returns to baseline bowel function Outcome: Progressing Goal: Maintains adequate nutritional intake Outcome: Progressing Problem: Genitourinary Goal: Absence of urinary retention Outcome: Progressing Problem: Lack of Knowledge Goal: Ability to describe self care measures that may prevent or decrease complications related to Type 1 Diabetes will improve Outcome: Progressing Goal: Ability to describe self care measures that may prevent or decrease complications related to Type 2 Diabetes will improve Outcome: Progressing Problem: Health Nutrition Goal: Nutritional intake and knowledge related to Diabetes will improve Outcome: Progressing Goals: Clinical Goals for the Shift: pt will remain hemodynamically stable Residential Patient Centered Goal for Treatment: dc to an appropriate setting Summary: Patient participating in care plan goals. Patient verbalized education and is progressing towards goals. * Consults, Subsequent - Bonnie Villanueva MD PhD - 07/15/2024 4:13 PM CDT Infectious Disease Subsequent Consult Note Infectious Disease Team: General 1 Contact Information: Please see [facility] Treatment Team listing for up-to-date contact information. 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, not clearly on TV per surgery CTS removed ICD Retained wire in PA, unable to be removed per CTS and vascular Still experiencing low back pain but stable from admission Objective Anti-infectives (From admission, onward) Start Dose/Rate Route Frequency Ordered Stop 07/07/24 0600 ceFAZolin (ANCEF) 2,000 mg/20 mL in sterile water (premix) 2,000 mg 2,000 mg 400 mL/hr over 3 Minutes intravenous Every 8 hours scheduled 07/07/24 0307 Vitals: 24hr Min/Max: Temp Min: 36.4 ??C (97.5 ??F) Max: 37 ??C (98.6 ??F) Pulse Min: 67 Max: 94 BP Min: 86/74 Max: 122/70 Resp Min: 20 Max: 22 SpO2 Min: 91 % Max: 98 % Most Recent : Vitals: 07/15/24 1500 BP: 116/53 Pulse: 67 Resp: 20 Temp: 37 ??C (98.6 ??F) SpO2: 93% I/O last 2 completed shifts: In: 400 [P.O.:400] Out: - Active LDAs: Peripheral IV 07/06/24 Anterior;Left Hand (Active) Number of days: 2 Peripheral IV 07/07/24 22 G Posterior;Right Hand (Active) Number of days: 1 Physical Exam: Constitutional: Well appearing, no distress. Sitting upright in bed. HENT: Oropharynx is moist. Eyes: Conjunctivae and EOM are normal. Neck: Normal range of motion. Cardiovascular: Normal rate, regular rhythm, normal heart sounds and intact distal pulses. Pulmonary/Chest: Effort normal. No respiratory distress. Abdominal: Soft, non-tender to palpation. Neurological: Alert and oriented to person, place, and time. Face symmetric. No dysarthria. Moving all extremities spontaneously. MSK: Pinpoint tenderness over lumbar spine Skin: Skin is warm, dry, and intact. Psychiatric: Normal mood and affect. Behavior is normal. Lab/Radiology/Diagnostic Review: Lab Results Component Value Date MICROBIOLOGY Preliminary Report: No growth to date. 07/13/2024 MICROBIOLOGY (.) 07/13/2024 Preliminary Report: Few Staphylococcus aureus Methicillin susceptible (MSSA) by penicillin binding protein 2a (PBP2a) testing. Susceptibility testing results to follow. MICROBIOLOGY Final Report: Negative 07/07/2024 MICROBIOLOGY Final Report: No growth 07/07/2024 MICROBIOLOGY Final Report: No growth 07/07/2024 Radiology results were reviewed. Neuro CT Outside Consult Result Date: 07/07/2024 Please refer to separate report for incidental findings. Head CT: No large acute territory infarct and no acute intracranial hemorrhage. Moderate to severe microvascular ischemic disease without prior imaging to assess stability. CT total spine: No CT evidence of osteomyelitis however this does notexclude the diagnosis; an MR spine is recommended for further evaluation. Mediastinal adenopathy, cardiomegaly, pericardial effusion and lung nodules are better evaluated on concurrent CT chest, abdomen and pelvis. The findings, conclusions and recommendations within this report do not replace the initial findings, conclusions and recommendations made at the facility where the study was performedbased upon the imaging and clinical condition at that time. Comparison with the prior report and clinical history is necessary. The provided images may or may not represent the nenana source data setand thus may contain changes that may lower the accuracy of this second-opinion interpretation. Elec tronically signed by: Carlota Murguia M.D. Neuro CT Outside Consult Result Date: 07/07/2024 Please refer to separate report for incidental findings. Head CT: No large acute territory infarct and no acute intracranial hemorrhage. Moderate to severe microvascular ischemic disease without prior imaging to assess stability. CT total spine: No CT evidence of osteomyelitis however this does notexclude the diagnosis; an MR spine is recommended for further evaluation. Mediastinal adenopathy, cardiomegaly, pericardial effusion and lung nodules are better evaluated on concurrent CT chest, abdomen and pelvis. The findings, conclusions and recommendations within this report do not replace the initial findings, conclusions and recommendations made at the facility where the study was performedbased upon the imaging and clinical condition at that time. Comparison with the prior report and clinical history is necessary. The provided images may or may not represent the nenana source data setand thus may contain changes that may lower the accuracy of this second-opinion interpretation. Elec tronically signed by: Carlota Murguia M.D. Neuro CT Outside Consult Result Date: 07/07/2024 Please refer to separate report for incidental findings. Head CT: No large acute territory infarct and no acute intracranial hemorrhage. Moderate to severe microvascular ischemic disease without prior imaging to assess stability. CT total spine: No CT evidence of osteomyelitis however this does notexclude the diagnosis; an MR spine is recommended for further evaluation. Mediastinal adenopathy, cardiomegaly, pericardial effusion and lung nodules are better evaluated on concurrent CT chest, abdomen and pelvis. The findings, conclusions and recommendations within this report do not replace the initial findings, conclusions and recommendations made at the facility where the study was performedbased upon the imaging and clinical condition at that time. Comparison with the prior report and clinical history is necessary. The provided images may or may not represent the nenana source data setand thus may contain changes that may lower the accuracy of this second-opinion interpretation. Elec tronically signed by: Carlota Murguia M.D. Neuro CT Outside Consult Result Date: 07/07/2024 Please refer to separate report for incidental findings. Head CT: No large acute territory infarct and no acute intracranial hemorrhage. Moderate to severe microvascular ischemic disease without prior imaging to assess stability. CT total spine: No CT evidence of osteomyelitis however this does notexclude the diagnosis; an MR spine is recommended for further evaluation. Mediastinal adenopathy, cardiomegaly, pericardial effusion and lung nodules are better evaluated on concurrent CT chest, abdomen and pelvis. The findings, conclusions and recommendations within this report do not replace the initial findings, conclusions and recommendations made at the facility where the study was performedbased upon the imaging and clinical condition at that time. Comparison with the prior report and clinical history is necessary. The provided images may or may not represent the nenana source data setand thus may contain changes that may lower the accuracy of this second-opinion interpretation. Elec tronically signed by: Carlota Murguia M.D. CT Body Outside Consult Result Date: 07/07/2024 1. New bilateral pulmonary nodules which have developed since 05/30/2024 and in the setting of bacteremia may represent septic emboli. 2. No acute process in the abdomen or pelvis or CT explanation for back pain The findings, conclusions and recommendations within this report do not replace the initial findings, conclusions and recommendations made at the facility where the study was performed based upon the imaging and clinical condition at that time. Comparison with the prior report and clinical history is necessary. The provided images may or may not represent the nenana source data set and thus may contain changes that may lower the accuracy of this second-opinion interpretation. Electro nically signed by: Geo Patel MD, PHD CT Body Outside Consult Result Date: 07/07/2024 1. New bilateral pulmonary nodules which have developed since 05/30/2024 and in the setting of bacteremia may represent septic emboli. 2. No acute process in the abdomen or pelvis or CT explanation for back pain The findings, conclusions and recommendations within this report do not replace the initial findings, conclusions and recommendations made at the facility where the study was performed based upon the imaging and clinical condition at that time. Comparison with the prior report and clinical history is necessary. The provided images may or may not represent the nenana source data set and thus may contain changes that may lower the accuracy of this second-opinion interpretation. Electro nically signed by: Geo Patel MD, PHD US Outside Consult Result Date: 07/07/2024 1. No hydronephrosis. The findings and impression are based on the available images, which may not be underwriting service representative of the entire organ or disease entity. Also note that ultrasound image acquisitionis mail handler equipment operator dependent, and that the study was performed outside our facility with no control over image acquisition. In addition, the provided images may or may not represent the nenana source data set and thus may contain changes that may lower the accuracy of this second-opinion interpretation. The findings, conclusions and recommendations within this report do not replace the initial findings,conclusions and recommendations made at the facility where the study was performed based upon the imaging and clinical condition at that time. Comparison with the prior report and clinical history isnecessary. Electronically signed by: Kevin Gottlieb M.D. CT Body Outside Consult Result Date: 07/07/2024 This study was initially nominated as a consult on outside images via Outside Image Sharing Service. However, a consult was not performed because a more recent study of the same exam type was nominated for consultation simultaneously. This study will be used as a comparison exam. Accordingly, there will be no separate report of this study generated by a [facility] Radiologist. Electronically signed by: Kevin Gottlieb M.D. XR Outside Reference Result Date: 07/07/2024 These images are for Reference purposes only and have not been reviewed by [facility] Radiology. There will be no report generated by a [facility] Radiologist. XR Chest 1 View Result Date: 07/14/2024 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 However, a wire again projects over the right lower lobe pulmonary artery, unchanged from prior. There is unchanged mild bibasilar atelectasis. There is nodefinite pleural effusion. No pneumothorax is identified. The cardiomediastinal silhouette is unchanged, with unchanged mild cardiomegaly and pulmonary artery enlargement. Electronically signed by: Liban Graff M.D. Assessment/Plan Patient is a 63 y.o. female with multiple comorbidities including Afib, IDDM2, HFrEF s/p AICD, hypothyroidism, and intellectual disability, who recently completed treatment for complicated MSSA bacteremia at an OSH with four weeks of cefazolin (05/25-06/21). GT at that time did not show any evidenceof endocardiac or ICD involvement. She represented to OSH on 06/21 with non-specific complaints and was found to have recurrent MSSA bacteremia. CT imaging was not suggestive of osteomyelitis but given ongoing complaint of back pain was transferred here for consideration of MRI given potential non-compatibility with existing AICD. 1) MSSA TV endocarditis - OSH BCx positive (07/01), first negative (07/02) - OSH CT spine (07/02): No evidence of osteomyelitis - OSH CT CAP (07/06): New bilateral pulmonary nodules suspicious for septic emboli - BCx (07/07) no growth - TTE (07/07): 9 x 7 mm mobile echodensity attached to V lead at the atrial level just proximal to TV - GT (07/07): 1.2 x 0.9 cm mobile vegetation attached to RA side of TV, no vegetations on device wires - ICD removed, operative cultures pos for MSSA - Antibiotics: vancomycin (07/01-07/03), cefazolin (07/01-present) Recommendations: - Continue cefazolin 2g q8hr for targeted anti-MSSA therapy - CTS removed ICD - Will need at least 2 weeks of antibiotic therapy following device removal before it is safe for re-implantation - Will need at least 6 weeks total from 07/13/24 for endocarditis - Retained wire, not able to be retrieved at this point per CTS, vascular - Appreciate EP, CTS, vascular expertise and assistance - Planning for MRI as still reports focal back pain Thank you for the opportunity to participate in the care of your patient. We will continue to follow. Please contact the Team 1 ID fellow as listed on Amion with any questions or concerns. Today, I am treating the patient for Staph aureus endocarditis which can cause metastatic infection, sepsis, and in the short-term future in the absence of appropriate treatment, as described in the note., Estimated Creatinine Clearance: 65.6 mL/min (by Cockcroft-Gault based on SCr of 0.8 mg/dL). - reviewed; antibiotics recommended above are dosed accordingly., and The patient is being intensively monitored for antimicrobial toxicity from cefazolin with the following tests: CBC, CMP. * Plan of Care - Hailee Paul RN - 07/15/2024 2:50 PM CDT CM attempted to assess the pt. She was sound asleep and would not wake up. CM will continue to follow for dc needs and and assessment. * Plan of Care - Maite Post RN - 07/15/2024 11:32 AM CDT Problem: Skin Integrity Impairment Risk Goal: Mobility will improve Outcome: Progressing Goal: Understanding of ways to prevent future skin breakdown will improve Outcome: Progressing Goal: Nutritional status will improve Outcome: Progressing Goal: Risk for impaired skin integrity will decrease Outcome: Progressing Problem: Fall Risk Goal: Ability to state ways to decrease the risk of falls will improve Outcome: Progressing Goal: Will remain free from falls Outcome: Progressing Goal: Will remain free from injury from falls Outcome: Progressing Problem: Discharge Planning Goal: Understanding discharge needs will improve Outcome: Progressing Problem: Lack of Knowledge Goal: Ability to develop a pain control plan will improve Outcome: Progressing Problem: Medication Goal: Satisfaction with pain management medication regimen will improve Outcome: Progressing Problem: Sensory Goal: Ability to identify factors that increase pain levels will improve while working to decrease the patient's pain levels Outcome: Progressing Problem: Coping Goal: Ability to cope will improve Outcome: Progressing Problem: Health Behavior Goal: Identification of resources available to assist in meeting health care needs will improve Outcome: Progressing Problem: Neurosensory Goal: Achieves maximal functionality and self care Outcome: Progressing Problem: Skin/Tissue Integrity Goal: Skin integrity remains intact Outcome: Progressing Goal: Incisions, wounds, or drain sites healing without S/S of infection Outcome: Progressing Problem: Gastrointestinal Goal: Minimal or absence of nausea and vomiting Outcome: Progressing Goal: Maintains or returns to baseline bowel function Outcome: Progressing Goal: Maintains adequate nutritional intake Outcome: Progressing Problem: Genitourinary Goal: Absence of urinary retention Outcome: Progressing Problem: Lack of Knowledge Goal: Ability to describe self care measures that may prevent or decrease complications related to Type 1 Diabetes will improve Outcome: Progressing Goal: Ability to describe self care measures that may prevent or decrease complications related to Type 2 Diabetes will improve Outcome: Progressing Problem: Health Nutrition Goal: Nutritional intake and knowledge related to Diabetes will improve Outcome: Progressing Goals: Clinical Goals for the Shift: HDS and free from injury Residential Patient Centered Goal for Treatment: dc to an appropriate setting Summary: progressing toward goal. * Plan of Care - Humphrey Leary RRT - 07/15/2024 2:14 AM CDT NPPV - REFUSED Situation: The patient was ordered on NPPV for Obstructive Sleep Apnea (JOSE). RT attempted to place the patient on their hospital provided NPPV machine. The patient did not care to wear their NPPV device, and REFUSED to wear. Plan: Provide nightly encouragement and coaching of benefits related to the use of NPPV. * Plan of Care - Jennie Estevez RN - 07/14/2024 7:48 PM CDT Problem: Skin Integrity Impairment Risk Goal: Mobility will improve Outcome: Progressing Goal: Understanding of ways to prevent future skin breakdown will improve Outcome: Progressing Goal: Nutritional status will improve Outcome: Progressing Goal: Risk for impaired skin integrity will decrease Outcome: Progressing Problem: Fall Risk Goal: Ability to state ways to decrease the risk of falls will improve Outcome: Progressing Goal: Will remain free from falls Outcome: Progressing Goal: Will remain free from injury from falls Outcome: Progressing Problem: Discharge Planning Goal: Understanding discharge needs will improve Outcome: Progressing Problem: Lack of Knowledge Goal: Ability to develop a pain control plan will improve Outcome: Progressing Problem: Medication Goal: Satisfaction with pain management medication regimen will improve Outcome: Progressing Problem: Sensory Goal: Ability to identify factors that increase pain levels will improve while working to decrease the patient's pain levels Outcome: Progressing Problem: Coping Goal: Ability to cope will improve Outcome: Progressing Problem: Health Behavior Goal: Identification of resources available to assist in meeting health care needs will improve Outcome: Progressing Problem: Neurosensory Goal: Achieves maximal functionality and self care Outcome: Progressing Problem: Skin/Tissue Integrity Goal: Skin integrity remains intact Outcome: Progressing Goal: Incisions, wounds, or drain sites healing without S/S of infection Outcome: Progressing Problem: Gastrointestinal Goal: Minimal or absence of nausea and vomiting Outcome: Progressing Goal: Maintains or returns to baseline bowel function Outcome: Progressing Goal: Maintains adequate nutritional intake Outcome: Progressing Problem: Genitourinary Goal: Absence of urinary retention Outcome: Progressing Problem: Lack of Knowledge Goal: Ability to describe self care measures that may prevent or decrease complications related to Type 1 Diabetes will improve Outcome: Progressing Goal: Ability to describe self care measures that may prevent or decrease complications related to Type 2 Diabetes will improve Outcome: Progressing Problem: Health Nutrition Goal: Nutritional intake and knowledge related to Diabetes will improve Outcome: Progressing Goals: Clinical Goals for the Shift: pt will remain hemodynamically stable [employer] Patient Centered Goal for Treatment: dc to an appropriate setting Summary: Patient participating in care plan goals. Patient verbalized education and is progressing towards goals. * Plan of Care - Valeria Sabillon RN - 07/14/2024 3:38 PM CDT Goals: Clinical Goals for the Shift: Patient will remain HDs Residential Patient Centered Goal for Treatment: dc to an appropriate setting Problem: Skin Integrity Impairment Risk Goal: Mobility will improve Outcome: Progressing Goal: Understanding of ways to prevent future skin breakdown will improve Outcome: Progressing Goal: Nutritional status will improve Outcome: Progressing Goal: Risk for impaired skin integrity will decrease Outcome: Progressing Problem: Fall Risk Goal: Ability to state ways to decrease the risk of falls will improve Outcome: Progressing Goal: Will remain free from falls Outcome: Progressing Goal: Will remain free from injury from falls Outcome: Progressing Problem: Discharge Planning Goal: Understanding discharge needs will improve Outcome: Progressing Problem: Lack of Knowledge Goal: Ability to develop a pain control plan will improve Outcome: Progressing Problem: Medication Goal: Satisfaction with pain management medication regimen will improve Outcome: Progressing Problem: Sensory Goal: Ability to identify factors that increase pain levels will improve while working to decrease the patient's pain levels Outcome: Progressing Problem: Coping Goal: Ability to cope will improve Outcome: Progressing Problem: Health Behavior Goal: Identification of resources available to assist in meeting health care needs will improve Outcome: Progressing Problem: Neurosensory Goal: Achieves maximal functionality and self care Outcome: Progressing Problem: Skin/Tissue Integrity Goal: Skin integrity remains intact Outcome: Progressing Goal: Incisions, wounds, or drain sites healing without S/S of infection Outcome: Progressing Problem: Gastrointestinal Goal: Minimal or absence of nausea and vomiting Outcome: Progressing Goal: Maintains or returns to baseline bowel function Outcome: Progressing Goal: Maintains adequate nutritional intake Outcome: Progressing Problem: Genitourinary Goal: Absence of urinary retention Outcome: Progressing Problem: Lack of Knowledge Goal: Ability to describe self care measures that may prevent or decrease complications related to Type 1 Diabetes will improve Outcome: Progressing Goal: Ability to describe self care measures that may prevent or decrease complications related to Type 2 Diabetes will improve Outcome: Progressing Problem: Health Nutrition Goal: Nutritional intake and knowledge related to Diabetes will improve Outcome: Progressing Summary: Patient participating in care plan goals. Patient verbalized education and is progressing towards goals. * Plan of Care - Humphrey Leary RRT - 07/14/2024 5:45 AM CDT NPPV - REFUSED Situation: The patient was ordered on NPPV for Obstructive Sleep Apnea (JOSE). RT attempted to place the patient on their hospital provided NPPV machine. The patient did not care to wear their NPPV device, and REFUSED to wear. Plan: Provide nightly encouragement and coaching of benefits related to the use of NPPV. * Plan of Care - Nilda Cotton - 07/13/2024 9:36 PM CDT Problem: Skin Integrity Impairment Risk Goal: Mobility will improve Outcome: Progressing Goal: Understanding of ways to prevent future skin breakdown will improve Outcome: Progressing Goal: Nutritional status will improve Outcome: Progressing Goal: Risk for impaired skin integrity will decrease Outcome: Progressing Problem: Fall Risk Goal: Ability to state ways to decrease the risk of falls will improve Outcome: Progressing Goal: Will remain free from falls Outcome: Progressing Goal: Will remain free from injury from falls Outcome: Progressing Problem: Discharge Planning Goal: Understanding discharge needs will improve Outcome: Progressing Problem: Lack of Knowledge Goal: Ability to develop a pain control plan will improve Outcome: Progressing Problem: Medication Goal: Satisfaction with pain management medication regimen will improve Outcome: Progressing Problem: Sensory Goal: Ability to identify factors that increase pain levels will improve while working to decrease the patient's pain levels Outcome: Progressing Problem: Coping Goal: Ability to cope will improve Outcome: Progressing Problem: Health Behavior Goal: Identification of resources available to assist in meeting health care needs will improve Outcome: Progressing Problem: Neurosensory Goal: Achieves maximal functionality and self care Outcome: Progressing Problem: Skin/Tissue Integrity Goal: Skin integrity remains intact Outcome: Progressing Goal: Incisions, wounds, or drain sites healing without S/S of infection Outcome: Progressing Problem: Gastrointestinal Goal: Minimal or absence of nausea and vomiting Outcome: Progressing Goal: Maintains or returns to baseline bowel function Outcome: Progressing Goal: Maintains adequate nutritional intake Outcome: Progressing Problem: Genitourinary Goal: Absence of urinary retention Outcome: Progressing Problem: Lack of Knowledge Goal: Ability to describe self care measures that may prevent or decrease complications related to Type 1 Diabetes will improve Outcome: Progressing Goal: Ability to describe self care measures that may prevent or decrease complications related to Type 2 Diabetes will improve Outcome: Progressing Problem: Health Nutrition Goal: Nutritional intake and knowledge related to Diabetes will improve Outcome: Progressing Goals: Clinical Goals for the Shift: patient will remain hemodynamically stable Residential Patient Centered Goal for Treatment: dc to an appropriate setting Summary: Patient participating in care plan goals. Patient verbalized education and is progressing towards goals. * Op Note - Connie Baig MD - 07/13/2024 4:50 PM CDT DATE OF SURGERY: 07/13/2024 SURGEON: Connie Baig MD FIRST LOGISTICS DIRECTOR: Adithya Whittington MD PREOPERATIVE DIAGNOSIS: MSSA bacteremia Tricuspid valve endocarditis Moderate tricuspid regurgitation Biotronik ICD lead with vegetation on RV lead POSTOPERATIVE DIAGNOSIS: As above NAME OF OPERATION: ICD extraction of leads using Tightrail and laser INDICATIONS FOR PROCEDURE: Ms. Lei Tolliver is a 63-year-old female with history of atrial fibrillation, heart failure with a reduced ejection fraction, intellectual disability, hypothyroidism, type 2 diabetes with an ICD infection. She has MSSA bacteremia as well as vegetations on the tricuspid valve. Her LV EF is about 30%, and she has mobile echodensity attached to the V lead just proximal tricuspid valve. She was brought to the operating room for removal of the Biotronik ICD system placed in 2017. DESCRIPTION OF PROCEDURE: After informed consent was obtained, the patient brought to the OR and laid supine on the table. General anesthesia via endotracheal intubation was administered. Invasive monitoring lines and a transesophageal echo probe were placed. A right femoral Cordis was placed. Once the patient was prepped and draped, Ancef was administered for surgical prophylaxis and written to be discontinued within 48 hours. An incision was made over the generator on the left anterior chest wall. The incision was carried down through the subcutaneous tissue using electrocautery. The ICD generator was pulled out of the pocket and the leads were exposed. Vicryl suture was placed at the base of the leads as it exited the pectoralis muscle. The leads were cut several cm away with heavy scissors. Locking stylettes were introduced. A 13 Egyptian tight rail was used to dilate through the fibrosed area through the innominatevein on both leads. As we transitioned to the SVC, we switched over to the 16 Egyptian laser sheath. Laser was used to free up the remaining portion of the ICD lead. Gt did not demonstrate any evidence of effusion or injury. Once the leads were removed, the Vicryl suture was tied down. Hemostasis was achieved. There was still residual moderate regurgitation of the tricuspid valve that seems slightly improved from preop. Hemostasis achieved and left anterior chest wall pocket was closed using absorbable sutures in layers. \ No DVT prophylaxis was given as this is not indicated for cardiac surgical procedures. ESTIMATED BLOOD LOSS: 50 mL SPONGE/INSTRUMENT/NEEDLE COUNTS: All counts were correct. CONDITION ON DISCHARGE FROM OPERATING ROOM: The patient tolerated the procedure well and was taken to the PACU in stable condition. PRESENCE STATEMENT: I was present and performed the entire procedure. * Brief Op Note - Adithya Mack MD - 07/13/2024 4:50 PM CDT Operative Progress Note Surgical Team: Surgeons and Role: * Robin Watkins MD - Primary * Adithya Mack MD - Fellow * Connie Baig MD Anesthesiologist: Jolanta Abdi MD Boatbuilder Wood: Stepan Love MD Supervisor Seaming: Fei Guerrero Supervisor Seaming Relief: Naa Tapia RN Scrub: Kisha Denney ST RNFA: Ady Arenas RN Orientee Scrub: Sumaya Owens RN DATE OF SURGERY : 07/13/2024 Preoperative Diagnosis: Pre-op Diagnosis * Acute bacterial endocarditis [I33.0] Postoperative Diagnosis: Post-op Diagnosis * Acute bacterial endocarditis [I33.0] Procedure(s): Procedure(s) (LRB): EXTRACTION LEAD AUTOMATIC IMPLANTABLE CARDIOVERTER DEFIBRILLATOR (N/A) Operative Findings: A and V leads removed without any events Estimated Blood Loss: 10 cc Intraoperative Fluids: Per anesthesia mls Specimens: No specimen collected in procedure Implants: Nothing was implanted during the procedure Blood/Blood Products Transfused: 0 mls Complications: None Condition on Discharge from the operating room was stable Adithya Trivedi MD Date: 07/13/2024 Time: 5:41 PM TEACHING ATTESTATION : I was present and directly participated in the entire procedure (including opening and closing). Cosigned by Connie Baig MD at 07/13/2024 7:10 PM CDT * Plan of Care - Marybel Garrido RN - 07/13/2024 11:03 AM CDT Goals: Problem: Skin Integrity Impairment Risk Goal: Mobility will improve Outcome: Progressing Flowsheets (Taken 07/13/2024 1103) Mobility will improve: Encourage ambulation Clinical Goals for the Shift: pt will remain hemodynamically stable Residential Patient Centered Goal for Treatment: dc to an appropriate setting Summary: pt going to OR for pacemaker removal today. Will continue to monitor * Plan of Care - Deisi Son RRT - 07/13/2024 1:06 AM CDT NPPV - STANDBY Situation: The patient was ordered on NPPV for Obstructive Sleep Apnea (JOSE). The patient is resting comfortably with no signs of distress, their respiratory status is within expected parameters; a hospital-provided NPPV machine is on standby at the bedside.. Plan: Continue to monitor the patient's respiratory status and place them on their bedside hospital-provided NPPV machine if they develop signs of respiratory distress.. * Medical Student - Anita Victoria BS - 07/12/2024 11:51 AM CDT MEDICINE DAILY PROGRESS NOTE Date of Admission: 07/07/2024 Date of Service: 07/12/24 CARE TEAM Patient: Lei Rodriguez Room: [id number] Service: Cardiology Primary Care Physician: Oswaldo Serrano MD Subjective BRIEF HPI Lei Rodriguez is a 63 y.o. female with a hx of MSSA bacteremia 05/2024, A-fib, HFrEF (EF 30%), T2DM, GERD, overactive bladder, obstructive sleep apnea, and intellectual disability who presented to [facility] for back pain 06/28 and transferred to [facility] because of concern for osteomyelitis. INTERVAL HISTORY Today Lei is in a good mood. She is endorsing continued back pain. Currently off tele, discussed importance of monitoring for VT/Fib after ICD ex-plantation. OBECTIVE Objective VITALS / I&Os Patient Vital Signs for the past 24 hrs: BP MAP (mmHg) Temp Temp src Pulse Resp SpO2 Weight 07/12/24 1023 -- -- -- -- 90 -- -- -- 07/12/24 0812 103/51 63 36.5 ??C (97.7 ??F) Oral 82 18 97 % -- 07/12/24 0536 -- -- -- -- -- -- -- 110.7 kg (244 lb) 07/12/24 0405 102/47 62 37.3 ??C (99.1 ??F) Oral 79 18 94 % -- 07/11/24 2300 112/59 68 -- -- -- -- 98 % -- 07/11/242028 107/64 77 36.7 ??C (98.1 ??F) Oral 81 17 97 % -- 07/11/24 1602 117/58 73 36.9 ??C (98.4 ??F) Oral 90 -- 100 % -- 24hr Min/Max: Temp Min: 36.5 ??C (97.7 ??F) Max: 37.3 ??C (99.1 ??F) Pulse Min: 79 Max: 90 BP Min: 102/47 Max: 117/58 Resp Min: 17 Max: 18 SpO2 Min: 94 % Max: 100 % Intake/Output Summary (Last 24 hours) at 07/12/2024 1151 Last data filed at 07/12/2024 0536 Gross per 24 hour Intake 1744.22 ml Output 425 ml Net 1319.22 ml PHYSICAL EXAM Constitutional: Well-developed, and in no distress HEENT: Moist MM. Normal conjunctiva, no scleral icterus, EOMI. Neck: Supple, no jugular venous distension present Cardio: Quiet heart sounds with tachycardia, irregular rhythm. No murmurs or extra heart sounds. Pulm/Chest: Normal respiratory effort and breath sounds. No crackles or wheezes. Abd: Soft, non-tender, non-distended. No guarding or rebound present. MSK/Extremities: No obvious deformities. No lower extremity edema. Neuro: AAO to person, place, and time; moving all extremities spontaneously Skin: Skin is warm and dry. Psych: Mood good and affect congruent. Lab/Radiology/Diagnostic Review: CBC Recent Labs Lab Units 07/11/24211807/10/24232307/09/242347 WBC K/cumm 4.7 5.9 7.6 HEMOGLOBIN g/dL 10.3* 11.3* 10.8* HEMATOCRIT % 33.1* 35.8 33.4* PLATELETS K/cumm 255 352 333 Chem Recent Labs Lab Units 07/12/24 0813 07/11/24211807/11/24203007/11/2427 07/10/24232307/10/24 0745 07/09/24 2348 07/07/24 0723 07/07/24 0134 SODIUM mmol/L -- 136 -- -- 134* -- 136 < > 136 POTASSIUM PLASMA mmol/L -- 3.9 -- -- 4.7 -- 3.5 < > See Comment CHLORIDE mmol/L -- 100 -- -- 99 -- 99 < > 99 CO2 mmol/L -- 27 -- -- 26 -- 33* < > 29 ANIONGAP mmol/L -- 9 -- -- 9 -- 4 < > 8 BUN SERUM mg/dL -- 15 -- -- 19 -- 16 < > 15 CREATININE mg/dL -- 0.92 -- -- 0.94 -- 1.04 < > 0.65 GLUCOSE mg/dL -- 124 -- -- 351* -- 156 < > 186 POC GLUCOSE MONITOR mg/dL 133 -- 181 < > -- < > -- < > -- CALCIUM mg/dL -- 9.1 -- -- 9.4 -- 9.1 < > 8.9 MAGNESIUM mg/dL -- 1.8 -- -- 1.9 -- -- -- 1.9 < > = values in this interval not displayed. LFTs Recent Labs Lab Units 07/11/24211807/10/24232307/09/24 2348 ALK PHOS Units/L 155* 176* 162* BILIRUBIN TOTAL mg/dL 0.3 0.4 0.4 TOTAL PROTEIN g/dL 7.2 8.0 7.2 ALT Units/L 10 8 6* AST Units/L 26 Coags Recent Labs Lab Units 07/12/24 0417 07/11/24211807/10/24232307/07/24 1247 07/07/24 0134 APTT sec 133* 51* 84* < > 28 INR -- -- -- -- 1.47* < > = values in this interval not displayed. Urine Analysis ABG Micro: IMAGING CURRENT MEDICATIONS Scheduled Medications: ceFAZolin, 2,000 mg, intravenous, Q8H GALINA escitalopram, 10 mg, oral, Daily furosemide, 40 mg, oral, Daily insulin glargine, 18 Units, subcutaneous, QAM insulin lispro, 0-10 Units, subcutaneous, TID with meals insulin lispro, 0-5 Units, subcutaneous, Nightly insulin lispro, 9 Units, subcutaneous, TID with meals levothyroxine, 75 mcg, oral, Daily - 0600 magnesium oxide, 400 mg, oral, Daily metoprolol XL, 50 mg, oral, Daily mirabegron ER, 25 mg, oral, Daily nortriptyline, 10 mg, oral, Daily pantoprazole DR, 20 mg, oral, Daily sacubitriL-valsartan, 1 tablet, oral, BID senna-docusate, 1 tablet, oral, BID sodium chloride 0.9%, 0.5-20 mL, intra-catheter, Q8H GALINA spironolactone, 12.5 mg, oral, Daily PRN Medications: acetaminophen, 650 mg, 650 mg at 07/11/24 0022 sodium chloride 0.9%, 30 mL cyclobenzaprine, 5 mg, 5 mg at 07/12/24 1023 dextrose, 15 g OR dextrose, 250 mL glucagon, 1 mg heparin, 40 Units/kg, 4,500 Units at 07/11/24 2230 OR heparin, 80 Units/kg ondansetron ODT, 4 mg OR ondansetron, 4 mg polyethylene glycol, 17 g ramelteon, 8 mg, 8 mg at 07/11/24 2108 sodium chloride 0.9%, 0.5-20 mL Assessment/Plan ASSESSMENT AND PLAN Lei Rodriguez is a 63 y.o. female with a hx of MSSA bacteremia 05/2024, A-fib, HFrEF (EF 30%), T2DM, GERD, overactive bladder, obstructive sleep apnea, and intellectual disability who presented to [facility] with back pain concerning for osteomyelitis and who is being managed for MSSA endocarditis. 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 3/3 BCx +MSSA bacteremia, no endocarditis. Patient treated with 4 week course Ancef through 06/21 with (-) cultures. However, presented to [facility] for severe back pain, BCx 07/[address] Spine 07/02 (-) for signs osteomyelitis, but transferred to [facility] for rule out and management of osteomyelitis. CT CAP 07/06 showed new bilateral pulmonary nodules suspicious for septic pulmonary emboli. TTE 07/07 shows small mobile echodensity attached to lead V at atrial level proximal to tricuspid valve and mild TR. However, GT 07/10 shows large (1.2 x 0.9cm) vegetation attached to the RA side of the TV (suspect posterior leaflet). New blood cultures drawn 07/07. MRSA Nares (-). EP, CT surgery, ID following. Patient is HIV (-). Patient (+) spinal tenderness on exam increasing concern for osteomyelitis. Patient is hemodynamically stable, low concern septic shock. - Follow blood cultures drawn 07/07: NGTD - Pursuing MRI spine for r/o secondary spinal source - ID Recs: Continue Ancef, which must be continued for 2 weeks after ICD removal - CT surgery: removal ICD still required, however not candidate for TVR. Multidisciplinary meeting with vascular today for potential Angiovac - EP recs: reimplant device prior to discharge, R-sided device preferred>subcutaneous. #HFrEF TTE 07/07 shows EF 30%. Euvolemic on exam, BPs soft after addition of malou, 100-110 systolic this AM. Home GDMT: Entresto 24-26, Coreg 25, Furosemide 40. Uncertain etiology of heart failure, can pursue ischemic evaluation given prolonged anticipated discharge. - GDMT: Entresto 24-26, metoprolol 50, Furosemide 40, spironolactone 12.5. May increase Entresto tomorrow. - Consider CTA #VFib/VT #ICD Patient had nausea, vomiting, headaches, LOC with head strike and transferred to [place]. Interrogation revealed 5 episodes of V-fib with ICD shocks. Interrogated 07/08, results show not pacer dependent, no VT overnight. Could be bridged with wearable defibrillator after ICD removal, however family is concerned given patient's intellectual disability. - Lytes: K>4 and Mg>2 #Recurrent UTIs #Overactive bladder Patient has been treated for UTIs, most recent UA grew E Col, treated with ceftriaxone and uncertain susceptibility to Ancef. Afebrile, but per family increasing suspicion UTI given change in mood recently. - Urine cx - CTM CBC - Vibegron (home) -> Mirabegron for overactive bladder #Persistent A-fib AFib on admission, started on Dilt drip and previously on Tikosyn, D/Babak with concern endocarditis.Previous GT May 2024 shows LA thrombus. Takes Xareleto at home. - Anticoagulation: Heparin drip given surgical plan - Rate control: metoprolol 50 daily #T2DM A1c 7.7 07/07. Glucose elevated to 290 yesterday. Home regimen: glargine 18u; Lispro 10 TID + SSI - Glargine 18u, Lispro 9u TID, SSI - POC glucose TIDAC #Anemia Hgb 10.8 on arrival, stable. - CTM #JOSE Ordered BIPAP, patient intermittently refusing. #Hypothyroidism - Synthroid 75mcg, TSH 2.8 #Depression - Lexapro 10, nortriptyline 10 #GERD - Pantoprazole 20 #Constipation - Senna-Docusate BID - Diet: Adult Diet Restricted; 2 GM Sodium, Low Fat, Low Chol - DVT PPX: Heparin drip - PT/OT:with time - CODE STATUS: Full Code - Dispo: to reevaluate EMERGENCY CONTACT Contact: Extended Emergency Contact Information Primary Emergency Contact: Dilia Moise Mobile Relation: Sister Secondary Emergency Contact: Peg Rice [facility] Relation: Sister Anita Ozunarichy [facility] Phase II Student Cosigned by Becca Wilcox MD at 07/14/2024 5:59 AM CDT * Plan of Care - Jennie Estevez RN - 07/12/2024 8:04 AM CDT Problem: Skin Integrity Impairment Risk Goal: Mobility will improve Outcome: Progressing Goal: Understanding of ways to prevent future skin breakdown will improve Outcome: Progressing Goal: Nutritional status will improve Outcome: Progressing Goal: Risk for impaired skin integrity will decrease Outcome: Progressing Problem: Fall Risk Goal: Ability to state ways to decrease the risk of falls will improve Outcome: Progressing Goal: Will remain free from falls Outcome: Progressing Goal: Will remain free from injury from falls Outcome: Progressing Problem: Discharge Planning Goal: Understanding discharge needs will improve Outcome: Progressing Problem: Lack of Knowledge Goal: Ability to develop a pain control plan will improve Outcome: Progressing Problem: Medication Goal: Satisfaction with pain management medication regimen will improve Outcome: Progressing Problem: Sensory Goal: Ability to identify factors that increase pain levels will improve while working to decrease the patient's pain levels Outcome: Progressing Problem: Coping Goal: Ability to cope will improve Outcome: Progressing Problem: Health Behavior Goal: Identification of resources available to assist in meeting health care needs will improve Outcome: Progressing Problem: Neurosensory Goal: Achieves maximal functionality and self care Outcome: Progressing Problem: Skin/Tissue Integrity Goal: Skin integrity remains intact Outcome: Progressing Goal: Incisions, wounds, or drain sites healing without S/S of infection Outcome: Progressing Problem: Gastrointestinal Goal: Minimal or absence of nausea and vomiting Outcome: Progressing Goal: Maintains or returns to baseline bowel function Outcome: Progressing Goal: Maintains adequate nutritional intake Outcome: Progressing Problem: Genitourinary Goal: Absence of urinary retention Outcome: Progressing Problem: Lack of Knowledge Goal: Ability to describe self care measures that may prevent or decrease complications related to Type 1 Diabetes will improve Outcome: Progressing Goal: Ability to describe self care measures that may prevent or decrease complications related to Type 2 Diabetes will improve Outcome: Progressing Problem: Health Nutrition Goal: Nutritional intake and knowledge related to Diabetes will improve Outcome: Progressing Goals: Clinical Goals for the Shift: pt will remain hemodynamically stable Residential Patient Centered Goal for Treatment: dc to an appropriate setting Summary: Patient participating in care plan goals. Patient verbalized education and is progressing towards goals. * Plan of Care - Savannah Lucia RRT - 07/12/2024 2:02 AM CDT NPPV - REFUSED Situation: The patient was ordered on NPPV for Obstructive Sleep Apnea (JOSE). RT attempted to place the patient on their hospital provided NPPV machine. The patient did not care to wear their NPPV device, and REFUSED to wear. BROWN [place], has been notified of their refusal. Plan: Continue to monitor the patient's status and try again if patient becomes distressed. * Plan of Care - Joanie Almanzar RN - 07/11/2024 10:19 PM CDT Goals: Clinical Goals for the Shift: pt will remain hemodynamically stable [employer] Manager Patient Centered Goal for Treatment: dc to an appropriate setting Summary: Problem: Skin Integrity Impairment Risk Goal: Mobility will improve Outcome: Progressing Goal: Understanding of ways to prevent future skin breakdown will improve Outcome: Progressing Goal: Nutritional status will improve Outcome: Progressing Goal: Risk for impaired skin integrity will decrease Outcome: Progressing Problem: Fall Risk Goal: Ability to state ways to decrease the risk of falls will improve Outcome: Progressing Goal: Will remain free from falls Outcome: Progressing Goal: Will remain free from injury from falls Outcome: Progressing Problem: Discharge Planning Goal: Understanding discharge needs will improve Outcome: Progressing Problem: Lack of Knowledge Goal: Ability to develop a pain control plan will improve Outcome: Progressing Problem: Medication Goal: Satisfaction with pain management medication regimen will improve Outcome: Progressing Problem: Sensory Goal: Ability to identify factors that increase pain levels will improve while working to decrease the patient's pain levels Outcome: Progressing Problem: Coping Goal: Ability to cope will improve Outcome: Progressing Problem: Health Behavior Goal: Identification of resources available to assist in meeting health care needs will improve Outcome: Progressing Problem: Neurosensory Goal: Achieves maximal functionality and self care Outcome: Progressing Problem: Skin/Tissue Integrity Goal: Skin integrity remains intact Outcome: Progressing Goal: Incisions, wounds, or drain sites healing without S/S of infection Outcome: Progressing Problem: Gastrointestinal Goal: Minimal or absence of nausea and vomiting Outcome: Progressing Goal: Maintains or returns to baseline bowel function Outcome: Progressing Goal: Maintains adequate nutritional intake Outcome: Progressing Problem: Genitourinary Goal: Absence of urinary retention Outcome: Progressing Problem: Lack of Knowledge Goal: Ability to describe self care measures that may prevent or decrease complications related to Type 1 Diabetes will improve Outcome: Progressing Goal: Ability to describe self care measures that may prevent or decrease complications related to Type 2 Diabetes will improve Outcome: Progressing Problem: Health Nutrition Goal: Nutritional intake and knowledge related to Diabetes will improve Outcome: Progressing * Medical Student - Anita Victoria BS - 07/11/2024 3:03 PM CDT MEDICINE DAILY PROGRESS NOTE Date of Admission: 07/07/2024 Date of Service: 07/11/24 CARE TEAM Patient: Lei Rodriguez Room: [id number] Service: Cardiology Primary Care Physician: Oswaldo Serrano MD Subjective BRIEF HPI Lei Rodriguez is a 63 y.o. female with a hx of MSSA bacteremia 05/2024, A-fib, HFrEF (EF 30%), T2DM, GERD, overactive bladder, obstructive sleep apnea, and intellectual disability who presented to [facility] for back pain 06/28 and transferred to [facility] because of concern for osteomyelitis. INTERVAL HISTORY Today Lei is in a better mood, states her family members are worry warts , but not abusive. She is endorsing continued back pain. OBECTIVE Objective VITALS / I&Os Patient Vital Signs for the past 24 hrs: BP MAP (mmHg) Temp Temp src Pulse Resp SpO2 Weight 07/11/24 1041 -- -- -- -- 91 -- -- -- 07/11/24 0728 90/50 63 36.4 ??C (97.5 ??F) Oral 95 -- 93 % -- 07/11/24 0600 -- -- -- -- -- -- -- 111.9 kg (246 lb 12.8 oz) 07/11/24 0323 123/68 78 36.6 ??C (97.8 ??F) Oral 98 18 93 % -- 07/10/24 2316 113/82 89 36.6 ??C (97.9 ??F) Oral 105 19 99 % -- 07/10/24 2258 92/81 86 -- -- 100 20 100 % -- 07/10/24 2033 130/79 93 -- -- 102 20 96 % -- 07/10/24 1512 114/61 -- 36.7 ??C (98.1 ??F) -- 86 20 98 % -- 24hr Min/Max: Temp Min: 36.4 ??C (97.5 ??F) Max: 36.7 ??C (98.1 ??F) Pulse Min: 86 Max: 105 BP Min: 90/50 Max: 130/79 Resp Min: 18 Max: 20 SpO2 Min: 93 % Max: 100 % Intake/Output Summary (Last 24 hours) at 07/11/2024 1503 Last data filed at 07/10/2024 2152 Gross per 24 hour Intake 460 ml Output -- Net 460 ml PHYSICAL EXAM Constitutional: Well-developed, and in no distress HEENT: Moist MM. Normal conjunctiva, no scleral icterus, EOMI. Neck: Supple, no jugular venous distension present Cardio: Quiet heart sounds with tachycardia, irregular rhythm. No murmurs or extra heart sounds. Pulm/Chest: Normal respiratory effort and breath sounds. No crackles or wheezes. Abd: Soft, non-tender, non-distended. No guarding or rebound present. MSK/Extremities: No obvious deformities. No lower extremity edema. Neuro: AAO to person, place, and time; moving all extremities spontaneously Skin: Skin is warm and dry. Psych: Mood good and affect congruent. Lab/Radiology/Diagnostic Review: CBC Recent Labs Lab Units 07/10/24232307/09/24234707/08/248 WBC K/cumm 5.9 7.6 6.1 HEMOGLOBIN g/dL 11.3* 10.8* 10.8* HEMATOCRIT % 35.8 33.4* 33.9* PLATELETS K/cumm 352 333 328 Chem Recent Labs Lab Units 07/11/24 1136 07/11/24 0727 07/10/24 23207/10/24 0745 07/09/248 07/09/24 0756 07/08/24 2148 07/07/24 0723 07/07/24 0134 SODIUM mmol/L -- -- 134* -- 136 -- 135 < > 136 POTASSIUM PLASMA mmol/L -- -- 4.7 -- 3.5 -- 4.4 < > See Comment CHLORIDE mmol/L -- -- 99 -- 99 -- 100 < > 99 CO2 mmol/L -- -- 26 -- 33* -- 27 < > 29 ANIONGAP mmol/L -- -- 9 -- 4 -- 8 < > 8 BUN SERUM mg/dL -- -- 19 -- 16 -- 18 < > 15 CREATININE mg/dL -- -- 0.94 -- 1.04 -- 0.89 < > 0.65 GLUCOSE mg/dL -- -- 351* -- 156 -- 186 < > 186 POC GLUCOSE MONITOR mg/dL 275* 238* -- < > -- < > -- < > -- CALCIUM mg/dL -- -- 9.4 -- 9.1 -- 9.2 < > 8.9 MAGNESIUM mg/dL -- -- 1.9 -- -- -- -- -- 1.9 < > = values in this interval not displayed. LFTs Recent Labs Lab Units 07/10/244 07/09/24 2348 07/08/24 2148 ALK PHOS Units/L 176* 162* 171* BILIRUBIN TOTAL mg/dL 0.4 0.4 0.3 TOTAL PROTEIN g/dL 8.0 7.2 7.2 ALT Units/L 8 6* 11 AST Units/L 28 26 35 Coags Recent Labs Lab Units 07/10/24 2324 07/10/24 1659 07/10/24 0643 07/07/24 1247 07/07/24 0134 APTT sec 84* 92* 119* < > 28 INR -- -- -- -- 1.47* < > = values in this interval not displayed. Urine Analysis ABG Micro: IMAGING CURRENT MEDICATIONS Scheduled Medications: ceFAZolin, 2,000 mg, intravenous, Q8H GALINA escitalopram, 10 mg, oral, Daily furosemide, 40 mg, oral, Daily insulin glargine, 18 Units, subcutaneous, QAM insulin lispro, 0-10 Units, subcutaneous, TID with meals insulin lispro, 0-5 Units, subcutaneous, Nightly insulin lispro, 9 Units, subcutaneous, TID with meals levothyroxine, 75 mcg, oral, Daily - 0600 magnesium oxide, 400 mg, oral, Daily metoprolol XL, 50 mg, oral, Daily mirabegron ER, 25 mg, oral, Daily nortriptyline, 10 mg, oral, Daily pantoprazole DR, 20 mg, oral, Daily sacubitriL-valsartan, 1 tablet, oral, BID senna-docusate, 1 tablet, oral, BID sodium chloride 0.9%, 0.5-20 mL, intra-catheter, Q8H GALINA spironolactone, 12.5 mg, oral, Daily PRN Medications: acetaminophen, 650 mg, 650 mg at 07/11/24 0022 sodium chloride 0.9%, 30 mL cyclobenzaprine, 5 mg, 5 mg at 07/11/24 1041 dextrose, 15 g OR dextrose, 250 mL glucagon, 1 mg heparin, 40 Units/kg, 4,500 Units at 07/08/24 0637 OR heparin, 80 Units/kg ondansetron ODT, 4 mg OR ondansetron, 4 mg polyethylene glycol, 17 g ramelteon, 8 mg, 8 mg at 07/10/24 8781 sodium chloride 0.9%, 0.5-20 mL Assessment/Plan ASSESSMENT AND PLAN Lei Rodriguez is a 63 y.o. female with a hx of MSSA bacteremia 05/2024, A-fib, HFrEF (EF 30%), T2DM, GERD, overactive bladder, obstructive sleep apnea, and intellectual disability who presented to [facility] with back pain concerning for osteomyelitis and who is being managed for MSSA endocarditis. 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 3/3 BCx +MSSA bacteremia, no endocarditis. Patient treated with 4 week course Ancef through 06/21 with (-) cultures. However, presented to [facility] for severe back pain, BCx 07/[address] Spine 07/02 (-) for signs osteomyelitis, but transferred to [facility] for rule out and management of osteomyelitis. CT CAP 07/06 showed new bilateral pulmonary nodules suspicious for septic pulmonary emboli. TTE 07/07 shows small mobile echodensity attached to lead V at atrial level proximal to tricuspid valve and mild TR. However, GT 07/10 shows large (1.2 x 0.9cm) vegetation attached to the RA side of the TV (suspect posterior leaflet). New blood cultures drawn 07/07. MRSA Nares (-). EP, CT surgery, ID following. Patient is HIV (-). Patient (+) spinal tenderness on exam increasing concern for osteomyelitis. Patient is hemodynamically stable, low concern septic shock. - Follow blood cultures drawn 07/07: NGTD - Pursuing MRI spine for r/o secondary spinal source - ID Recs: Continue Ancef, which must be continued for 2 weeks after ICD removal - CT surgery: removal ICD still required, however not candidate for TVR. Will engage vascular for potential Angiovac - EP recs: reimplant device prior to discharge, R-sided device preferred. #HFrEF TTE 07/07 shows EF 30%. Euvolemic on exam, BPs soft after addition of malou, lowest 90/50 this AM. Home GDMT: Entresto 24-26, Coreg 25, Furosemide 40. Uncertain etiology of heart failure, can pursue ischemic evaluation given prolonged anticipated discharge. - GDMT: Entresto 24-26, metoprolol 50, Furosemide 40, spironolactone 12.5. May increase Entresto tomorrow. - Consider CTA #VFib/VT #ICD Patient had nausea, vomiting, headaches, LOC with head strike and transferred to [place]. Interrogation revealed 5 episodes of V-fib with ICD shocks. Interrogated 07/08, results show not pacer dependent, no VT overnight. Could be bridged with wearable defibrillator after ICD removal, however family is concerned given patient's intellectual disability. - Lytes: K>4 and Mg>2 #Recurrent UTIs #Overactive bladder Patient has been treated for UTIs, most recent UA grew E Col, treated with ceftriaxone and uncertain susceptibility to Ancef. Afebrile, but per family increasing suspicion UTI given change in mood recently. - Urine cx - CTM CBC - Vibegron (home) -> Mirabegron for overactive bladder #Persistent A-fib AFib on admission, started on Dilt drip and previously on Tikosyn, D/Babak with concern endocarditis.Previous GT May 2024 shows LA thrombus. Takes Xareleto at home. - Anticoagulation: Heparin drip given surgical plan - Rate control: metoprolol 50 daily #T2DM A1c 7.7 07/07. Glucose elevated to 290 yesterday. Home regimen: glargine 18u; Lispro 10 TID + SSI - Glargine 18u, Lispro 9u TID, SSI - POC glucose TIDAC #Anemia Hgb 10.8 on arrival, MCV - CTM #JOSE Ordered BIPAP, patient intermittently refusing. #Hypothyroidism - Synthroid 75mcg, TSH 2.8 #Depression - Lexapro 10, nortriptyline 10 #GERD - Pantoprazole 20 #Constipation - Senna-Docusate BID - Diet: Adult Diet Restricted; 2 GM Sodium, Low Fat, Low Chol - DVT PPX: Heparin drip - PT/OT:with time - CODE STATUS: Full Code - Dispo: to reevaluate EMERGENCY CONTACT Contact: Extended Emergency Contact Information Primary Emergency Contact: Dilia Moise Mobile Relation: Sister Secondary Emergency Contact: Peg Rice [facility] Relation: Sister Anita Victoria [facility] Phase II Student Cosigned by Becca Wilcox MD at 07/14/2024 5:59 AM CDT * Consults, Subsequent - Eric Magaña MD - 07/11/2024 11:32 AM CDT Infectious Disease Subsequent Consult Note Infectious Disease Team: General 1 Contact Information: Please see [facility] Treatment Team listing for up-to-date contact information. Chief complaint: MSSA TV endocarditis Interval History: AFHDS, WBC 5.9 GT with 1.2-cm vegetation on TV Pending CTS recommendations Still experiencing low back pain but stable from admission Discussed need for pacer removal with sister Dilia Objective Anti-infectives (From admission, onward) Start Dose/Rate Route Frequency Ordered Stop 07/07/24 0600 ceFAZolin (ANCEF) 2,000 mg/20 mL in sterile water (premix) 2,000 mg 2,000 mg 400 mL/hr over 3 Minutes intravenous Every 8 hours scheduled 07/07/24 0307 Vitals: 24hr Min/Max: Temp Min: 36.4 ??C (97.5 ??F) Max: 36.7 ??C (98.1 ??F) Pulse Min: 76 Max: 107 BP Min: 90/50 Max: 130/79 Resp Min: 16 Max: 23 SpO2 Min: 93 % Max: 100 % Most Recent : Vitals: 07/11/24 1041 BP: Pulse: 91 Resp: Temp: SpO2: I/O last 2 completed shifts: In: 586.3 [P.O.:450; I.V.:136.3] Out: 0 Active LDAs: Peripheral IV 07/06/24 Anterior;Left Hand (Active) Number of days: 2 Peripheral IV 07/07/24 22 G Posterior;Right Hand (Active) Number of days: 1 Physical Exam: Constitutional: Well appearing, no distress. Sitting upright in bed. HENT: Oropharynx is moist. Eyes: Conjunctivae and EOM are normal. Neck: Normal range of motion. Cardiovascular: Normal rate, regular rhythm, normal heart sounds and intact distal pulses. Pulmonary/Chest: Effort normal. No respiratory distress. Abdominal: Soft, non-tender to palpation. Neurological: Alert and oriented to person, place, and time. Face symmetric. No dysarthria. Moving all extremities spontaneously. MSK: Pinpoint tenderness over lumbar spine Skin: Skin is warm, dry, and intact. Psychiatric: Normal mood and affect. Behavior is normal. Lab/Radiology/Diagnostic Review: Lab Results Component Value Date MICROBIOLOGY Final Report: Negative 07/07/2024 MICROBIOLOGY Final Report: No growth 07/07/2024 MICROBIOLOGY Final Report: No growth 07/07/2024 MICROBIOLOGY Final Report: No growth 06/13/2024 MICROBIOLOGY Final Report: No growth 06/13/2024 Radiology results were reviewed. Neuro CT Outside Consult Result Date: 07/07/2024 Please refer to separate report for incidental findings. Head CT: No large acute territory infarct and no acute intracranial hemorrhage. Moderate to severe microvascular ischemic disease without prior imaging to assess stability. CT total spine: No CT evidence of osteomyelitis however this does notexclude the diagnosis; an MR spine is recommended for further evaluation. Mediastinal adenopathy, cardiomegaly, pericardial effusion and lung nodules are better evaluated on concurrent CT chest, abdomen and pelvis. The findings, conclusions and recommendations within this report do not replace the initial findings, conclusions and recommendations made at the facility where the study was performedbased upon the imaging and clinical condition at that time. Comparison with the prior report and clinical history is necessary. The provided images may or may not represent the nenana source data setand thus may contain changes that may lower the accuracy of this second-opinion interpretation. Electronically signed by: Carlota Murguia M.D. Neuro CT Outside Consult Result Date: 07/07/2024 Please refer to separate report for incidental findings. Head CT: No large acute territory infarct and no acute intracranial hemorrhage. Moderate to severe microvascular ischemic disease without prior imaging to assess stability. CT total spine: No CT evidence of osteomyelitis however this does notexclude the diagnosis; an MR spine is recommended for further evaluation. Mediastinal adenopathy, cardiomegaly, pericardial effusion and lung nodules are better evaluated on concurrent CT chest, abdomen and pelvis. The findings, conclusions and recommendations within this report do not replace the initial findings, conclusions and recommendations made at the facility where the study was performedbased upon the imaging and clinical condition at that time. Comparison with the prior report and clinical history is necessary. The provided images may or may not represent the nenana source data setand thus may contain changes that may lower the accuracy of this second-opinion interpretation. Electronically signed by: Carlota Murguia M.D. Neuro CT Outside Consult Result Date: 07/07/2024 Please refer to separate report for incidental findings. Head CT: No large acute territory infarct and no acute intracranial hemorrhage. Moderate to severe microvascular ischemic disease without prior imaging to assess stability. CT total spine: No CT evidence of osteomyelitis however this does notexclude the diagnosis; an MR spine is recommended for further evaluation. Mediastinal adenopathy, cardiomegaly, pericardial effusion and lung nodules are better evaluated on concurrent CT chest, abdomen and pelvis. The findings, conclusions and recommendations within this report do not replace the initial findings, conclusions and recommendations made at the facility where the study was performedbased upon the imaging and clinical condition at that time. Comparison with the prior report and clinical history is necessary. The provided images may or may not represent the nenana source data setand thus may contain changes that may lower the accuracy of this second-opinion interpretation. Electronically signed by: Carlota Murguia M.D. Neuro CT Outside Consult Result Date: 07/07/2024 Please refer to separate report for incidental findings. Head CT: No large acute territory infarct and no acute intracranial hemorrhage. Moderate to severe microvascular ischemic disease without prior imaging to assess stability. CT total spine: No CT evidence of osteomyelitis however this does notexclude the diagnosis; an MR spine is recommended for further evaluation. Mediastinal adenopathy, cardiomegaly, pericardial effusion and lung nodules are better evaluated on concurrent CT chest, abdomen and pelvis. The findings, conclusions and recommendations within this report do not replace the initial findings, conclusions and recommendations made at the facility where the study was performedbased upon the imaging and clinical condition at that time. Comparison with the prior report and clinical history is necessary. The provided images may or may not represent the nenana source data setand thus may contain changes that may lower the accuracy of this second-opinion interpretation. Electronically signed by: Carlota Murguia M.D. CT Body Outside Consult Result Date: 07/07/2024 1. New bilateral pulmonary nodules which have developed since 05/30/2024 and in the setting of bacteremia may represent septic emboli. 2. No acute process in the abdomen or pelvis or CT explanation for back pain The findings, conclusions and recommendations within this report do not replace the initial findings, conclusions and recommendations made at the facility where the study was performed based upon the imaging and clinical condition at that time. Comparison with the prior report and clinical history is necessary. The provided images may or may not represent the nenana source data set and thus may contain changes that may lower the accuracy of this second-opinion interpretation. Electro nically signed by: Geo Patel MD, PHD CT Body Outside Consult Result Date: 07/07/2024 1. New bilateral pulmonary nodules which have developed since 05/30/2024 and in the setting of bacteremia may represent septic emboli. 2. No acute process in the abdomen or pelvis or CT explanation for back pain The findings, conclusions and recommendations within this report do not replace the initial findings, conclusions and recommendations made at the facility where the study was performed based upon the imaging and clinical condition at that time. Comparison with the prior report and clinical history is necessary. The provided images may or may not represent the nenana source data set and thus may contain changes that may lower the accuracy of this second-opinion interpretation. Electro nically signed by: Geo Patel MD, PHD US Outside Consult Result Date: 07/07/2024 1. No hydronephrosis. The findings and impression are based on the available images, which may not be underwriting service representative of the entire organ or disease entity. Also note that ultrasound image acquisitionis mail handler equipment operator dependent, and that the study was performed outside our facility with no control over image acquisition. In addition, the provided images may or may not represent the nenana source data set and thus may contain changes that may lower the accuracy of this second- opinion interpretation. The findings, conclusions and recommendations within this report do not replace the initial findings,conclusions and recommendations made at the facility where the study was performed based upon the imaging and clinical condition at that time. Comparison with the prior report and clinical history isnecessary. Electronically signed by: Kevin Gottlieb M.D. CT Body Outside Consult Result Date: 07/07/2024 This study was initially nominated as a consult on outside images via Outside Image Sharing Service. However, a consult was not performed because a more recent study of the same exam type was nominated for consultation simultaneously. This study will be used as a comparison exam. Accordingly, there will be no separate report of this study generated by a [facility] Radiologist. Electronically signed by: Kevin Gottlieb M.D. XR Outside Reference Result Date: 07/07/2024 These images are for Reference purposes only and have not been reviewed by [facility] Radiology. There will be no report generated by a [facility] Radiologist. No results found. Assessment/Plan Patient is a 63 y.o. female with multiple comorbidities including Afib, IDDM2, HFrEF s/p AICD, hypothyroidism, and intellectual disability, who recently completed treatment for complicated MSSA bacteremia at an OSH with four weeks of cefazolin (05/25-06/21). GT at that time did not show any evidenceof endocardiac or ICD involvement. She represented to OSH on 06/21 with non-specific complaints and was found to have recurrent MSSA bacteremia. CT imaging was not suggestive of osteomyelitis but given ongoing complaint of back pain was transferred here for consideration of MRI given potential non-compatibility with existing AICD. 1) MSSA TV endocarditis - OSH BCx positive (07/01), first negative (07/02) - OSH CT spine (07/02): No evidence of osteomyelitis - OSH CT CAP (07/06): New bilateral pulmonary nodules suspicious for septic emboli - BCx (07/07) no growth - TTE (07/07): 9 x 7 mm mobile echodensity attached to V lead at the atrial level just proximal to TV - GT (07/07): 1.2 x 0.9 cm mobile vegetation attached to RA side of TV, no vegetations on device wires - Antibiotics: vancomycin (07/01-07/03), cefazolin (07/01-present) Recommendations: - Continue cefazolin 2g q8hr for targeted anti-MSSA therapy - Agree with CTS consult for removal of ICD - Will need at least 2 weeks of antibiotic therapy following device removal before it is safe for re-implantation - Appreciate EP expertise and assistance Thank you for the opportunity to participate in the care of your patient. We will continue to follow. Please contact the Team 1 ID fellow as listed on Amion with any questions or concerns. 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 - reviewed; antibiotics recommended above are dosed accordingly., and The patient is being intensively monitored for antimicrobial toxicity from cefazolin with the following tests: CBC, CMP. Eric Magaña MD PhD Infectious Diseases Fellow Cosigned by Bonnie Villanueva MD PhD at 07/11/2024 2:09 PM CDT Associated attestation - Bonnie Villanueva MD PhD - 07/11/2024 2:09 PM CDT I have seen and examined the patient on 07/11/24. I agree with the findings and plan of care as documented in the resident's/fellow's note. Recurrent MSSA infection with endocarditis in setting of ICD. Given valve vegetation, will need 14 days of antibiotics after ICD removal before it should be reimplanted. She will need at least 6 weeks total therapy. Please send cultures if any valve surgery is done as that would also extend course of therapy if still positive. * Plan of Care - Raul Malik RN - 07/11/2024 8:17 AM CDT Problem: Skin Integrity Impairment Risk Goal: Mobility will improve Outcome: Progressing Problem: Fall Risk Goal: Ability to state ways to decrease the risk of falls will improve Outcome: Progressing Problem: Lack of Knowledge Goal: Ability to develop a pain control plan will improve Outcome: Ongoing Problem: Medication Goal: Satisfaction with pain management medication regimen will improve Outcome: Ongoing Problem: Coping Goal: Ability to cope will improve Outcome: Ongoing Goals: Clinical Goals for the Shift: HDS and free from injury [employer] Manager Patient Centered Goal for Treatment: dc to an appropriate setting Summary: * Plan of Care - Mike Marquez RRT - 07/11/2024 4:12 AM CDT NPPV - REFUSED Situation: The patient was ordered on NPPV for Obstructive Sleep Apnea (JOSE). RT attempted to place the patient on their hospital provided NPPV machine. The patient did not care to wear their NPPV device, and REFUSED to wear. BROWN [place], has been notified of their refusal. Plan: Continue to monitor the patient's status and try again if patient becomes distressed. * Significant Event - Doreen Alaniz NP - 07/10/2024 11:08 PM CDT EP Recommendations for Patients With Implanted Cardiac Devices Undergoing MRI Patient Name: Lei Jorgeham Patient Patient : 1960 Date of Evaluation: 07/10/24 [x] Device Interrogation performed 06/28/2024 and reviewed Generator: Biotronik defibrillator Iperia 7 DRT implanted 05/20/2017 Right atrial lead: Biotronik Solia S 45 implanted 11/30/2017; pacing 16% Right ventricular lead: Biotronik Plexa ProMRI S 65 implanted 05/20/2017; pacing 9% Lead impedance, sensing, and pacing capture thresholds are stable Battery @ middle of service 2 (MOS2) with 9% remaining No high ventricular rate episodes; atrial burden is 54% [x] Chest x-ray performed 07/11/2024 and reviewed EXAMINATION: 2 view chest radiograph IMPRESSION: The [...] better characterized on recent CT. Dictated by: Menea Pagan MD The radiology attending physician has personally reviewed this study, and had reviewed and/or edited this written report and agrees with it. Dictated by: MEENA PAGAN on TueJul 11, 2024 5:23:18 PM CDT Risk Assessment: [x] Standard Risk for MRI - device rep & EP available by phone [x] Any MRI-conditional pacemaker or ICD system [] High Risk for MRI - Device rep & EP present [] Recent history of VT [] Aix-SCP-amjkxjawunu system [] Contraindication for MRI [] LEADS [] Epicardial leads [] Abandoned leads [] Damaged leads [] New leads (<6 weeks old) [] Leads with extenders or adaptors [] Threshold and/or impedance outside safety margins [] GENERATOR [] Device battery at JOSE Plan: Presence of Implanted Cardiac Device -Device is an MRI conditional system -Patient is assessed at STANDARD RISK -Will defer to Radiology MRSO to determine risk with the wire in the right lower lobe pulmonary artery extending into the segmental pulmonary arteries, present since 05/29/2024. SEE chest xray note above. segmental pulmonary arteries, present since 05/29/2024. -Will notify MRI of risk stratification and timing of scan will be determined by the radiology department; EP will be available by phone at [phone]. Doreen Alaniz MSN, RN, ACNP- Nurse Practitioner, [facility] Form Completed/Evaluated by: Doreen Alaniz NP * Plan of Care - Naa Hager - 07/10/2024 10:53 AM CDT Goals: Patient will remain free from injury this shift. Summary: * Medical Student - Anita Victoria BS - 07/10/2024 8:42 AM CDT MEDICINE DAILY PROGRESS NOTE Date of Admission: 07/07/2024 Date of Service: 07/10/24 CARE TEAM Patient: Lei Rodriguez Room: [place] [id number] [id number] Service: Cardiology Primary Care Physician: Oswaldo Serrano MD Subjective BRIEF HPI Lei Rodriguez is a 63 y.o. female with a hx of MSSA bacteremia 05/2024, A-fib, HFrEF (EF 30%), T2DM, GERD, overactive bladder, obstructive sleep apnea, and intellectual disability who presented to OSH for back pain 06/28 and transferred to [facility] because of concern for osteomyelitis. INTERVAL HISTORY Today Lei is feeling a bit upset that she cannot eat until her GT. She is endorsing continued back pain today, did not wear her BiPAP overnight. OBECTIVE Objective VITALS / I&Os Patient Vital Signs for the past 24 hrs: BP MAP (mmHg) Temp Temp src Pulse Resp SpO2 Weight 07/10/24 0740 100/60 -- 36.4 ??C (97.5 ??F) Oral 94 17 95 % -- 07/10/24 0700 -- -- -- -- 83 -- -- -- 07/10/24 0530 103/52 65 36.7 ??C (98 ??F) Oral 89 18 94 % 112.1 kg (247 lb 1.6 oz) 07/09/24 2238 126/73 85 36.5 ??C (97.7 ??F) Oral 88 18 98 % -- 07/09/24 1645 134/69 85 36.3 ??C (97.4 ??F) Oral 96 18 94 % -- 07/09/24 1125 121/83 91 36.9 ??C (98.4 ??F) Oral 92 20 96 % -- 07/09/24 0856 -- -- -- -- 89 -- -- -- 24hr Min/Max: Temp Min: 36.3 ??C (97.4 ??F) Max: 36.9 ??C (98.4 ??F) Pulse Min: 83 Max: 96 BP Min: 100/60 Max: 134/69 Resp Min: 17 Max: 20 SpO2 Min: 94 % Max: 98 % Intake/Output Summary (Last 24 hours) at 07/10/2024 0842 Last data filed at 07/09/2024 1745 Gross per 24 hour Intake 360 ml Output 520 ml Net -160 ml PHYSICAL EXAM Constitutional: Well-developed, and in no distress HEENT: Moist MM. Normal conjunctiva, no scleral icterus, EOMI. Neck: Supple, no jugular venous distension present Cardio: Quiet heart sounds with normal rate, irregular rhythm. No murmurs or extra heart sounds. Pulm/Chest: Normal respiratory effort and breath sounds. No crackles or wheezes. Abd: Soft, non-tender, non-distended. No guarding or rebound present. MSK/Extremities: No obvious deformities. No lower extremity edema. Neuro: AAO to person, place, and time; moving all extremities spontaneously Skin: Skin is warm and dry. Psych: Mood frustrated and affect congruent. Lab/Radiology/Diagnostic Review: CBC Recent Labs Lab Units 07/09/24 2348 07/08/24 2148 07/07/24 2134 WBC K/cumm 7.6 6.1 6.1 HEMOGLOBIN g/dL 10.8* 10.8* 9.9* HEMATOCRIT % 33.4* 33.9* 30.4* PLATELETS K/cumm 333 328 310 Chem Recent Labs Lab Units 07/10/24 0745 09/30234707/09/24224507/09/24 0756 07/08/24214707/08/24 0740 07/07/24213307/07/24 0723 07/07/24 0134 SODIUM mmol/L -- 136 -- -- 135 -- 136 -- 136 POTASSIUM PLASMA mmol/L -- 3.5 -- -- 4.4 -- 4.2 -- See Comment CHLORIDE mmol/L -- 99 -- -- 100 -- 96* -- 99 CO2 mmol/L -- 33* -- -- 27 -- 29 -- 29 ANIONGAP mmol/L -- 4 -- -- 8 -- 11 -- 8 BUN SERUM mg/dL -- 16 -- -- 18 -- 17 -- 15 CREATININE mg/dL -- 1.04 -- -- 0.89 -- 0.96 -- 0.65 GLUCOSE mg/dL -- 156 -- -- 186 -- 186 -- 186 POC GLUCOSE MONITOR mg/dL 144 -- 197 < > -- < > -- < > -- CALCIUM mg/dL -- 9.1 -- -- 9.2 -- 8.8 -- 8.9 MAGNESIUM mg/dL -- -- -- -- -- -- -- -- 1.9 < > = values in this interval not displayed. LFTs Recent Labs Lab Units 07/09/24234707/08/24214707/07/242133 ALK PHOS Units/L 162* 171* 174* BILIRUBIN TOTAL mg/dL 0.4 0.3 0.3 TOTAL PROTEIN g/dL 7.2 7.2 6.7 ALT Units/L 6* 11 15 AST Units/L 26 35 42 Coags Recent Labs Lab Units 07/10/24 0643 07/09/24234707/09/24 1627 07/07/24 1247 07/07/24 0134 APTT sec 119* 61* 70* < > 28 INR -- -- -- -- 1.47* < > = values in this interval not displayed. Urine Analysis ABG Micro: IMAGING CURRENT MEDICATIONS Scheduled Medications: ceFAZolin, 2,000 mg, intravenous, Q8H GALINA escitalopram, 10 mg, oral, Daily furosemide, 40 mg, oral, Daily insulin glargine, 18 Units, subcutaneous, QAM insulin lispro, 0-4 Units, subcutaneous, Nightly insulin lispro, 0-5 Units, subcutaneous, TID with meals insulin lispro, 7 Units, subcutaneous, TID with meals levothyroxine, 75 mcg, oral, Daily - 0600 magnesium oxide, 400 mg, oral, Daily metoprolol XL, 50 mg, oral, Daily mirabegron ER, 25 mg, oral, Daily nortriptyline, 10 mg, oral, Daily pantoprazole DR, 20 mg, oral, Daily potassium chloride ER, 30 mEq, oral, Q4H sacubitriL-valsartan, 1 tablet, oral, BID senna-docusate, 1 tablet, oral, BID sodium chloride 0.9%, 0.5-20 mL, intra-catheter, Q8H GALINA spironolactone, 12.5 mg, oral, Daily PRN Medications: acetaminophen, 650 mg, 650 mg at 07/08/24 1245 sodium chloride 0.9%, 30 mL cyclobenzaprine, 5 mg, 5 mg at 07/08/24 1245 dextrose, 15 g OR dextrose, 250 mL glucagon, 1 mg heparin, 40 Units/kg, 4,500 Units at 07/08/24 0637 OR heparin, 80 Units/kg ondansetron ODT, 4 mg OR ondansetron, 4 mg polyethylene glycol, 17 g ramelteon, 8 mg, 8 mg at 07/10/24 0146 sodium chloride 0.9%, 0.5-20 mL Assessment/Plan ASSESSMENT AND PLAN Lei Rodriguez is a 63 y.o. female with a hx of MSSA bacteremia 05/2024, A-fib, HFrEF (EF 30%), T2DM, GERD, overactive bladder, obstructive sleep apnea, and intellectual disability who presented to [facility] with back pain concerning for osteomyelitis and who is being managed for MSSA endocarditis. 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 3/3 BCx +MSSA bacteremia, no endocarditis. Patient treated with 4 week course Ancef through 06/21 with (-) cultures. However, presented to [facility] for severe back pain, BCx 07/[address] Spine 07/02 (-) for signs osteomyelitis, but transferred to [facility] for rule out and management of osteomyelitis. CT CAP 07/06 showed new bilateral pulmonary nodules suspicious for septic pulmonary emboli. TTE 07/07 shows small mobile echodensity attached to lead V at atrial level proximal to tricuspid valve and mild TR. However, GT 07/10 shows large (1.2 x 0.9cm) vegetation attached to the RA side of the TV (suspect posterior leaflet). New blood cultures drawn 07/07. MRSA Nares (-). EP, CT surgery, ID following. Patient is HIV (-). Patient (+) spinal tenderness on exam increasing concern for osteomyelitis. Patient is hemodynamically stable, low concern septic shock. - Follow blood cultures drawn 07/07: NGTD - MRI spine for r/o secondary spinal source - ID Recs: Continue Ancef, although uncertain length of treatment - CT surgery: removal ICD still required, will inquire about thrombus removal and pending MRI results - EP recs: reimplant device prior to discharge, R-sided device preferred #HFrEF TTE 07/07 shows EF 30%. Euvolemic on exam, BPs soft after addition of malou, lowest 103/52. Home GDMT: Entresto 24-26, Coreg 25, Furosemide 40. Uncertain etiology of heart failure, can pursue ischemic evaluation given prolonged anticipated discharge. - GDMT: Entresto 24-26, metoprolol 50, Furosemide 40, spironolactone 12.5. May increase Entresto tomorrow. - Consider CTA #VFib/VT #ICD Patient had nausea, vomiting, headaches, LOC with head strike and transferred to [place]. Interrogation revealed 5 episodes of V-fib with ICD shocks. Interrogated 07/08, results show not pacer dependent, no VT overnight. Could be bridged with wearable defibrillator after ICD removal, however family is concerned given patient's intellectual disability. - Lytes: K>4 and Mg>2 #Recurrent UTIs #Overactive bladder Patient has been treated for UTIs, most recent UA grew E Col, treated with ceftriaxone and uncertain susceptibility to Ancef. Afebrile, but per family increasing suspicion UTI given change in mood recently. - Urine cx - CTM CBC - Vibegron (home) -> Mirabegron for overactive bladder #Persistent A-fib AFib on admission, started on Dilt drip and previously on Tikosyn, D/Babak with concern endocarditis.Previous GT May 2024 shows LA thrombus. Takes Xareleto at home. - Anticoagulation: Heparin drip given surgical plan - Rate control: metoprolol 50 daily #T2DM A1c 7.7 07/07. Glucose 140s-190s yesterday. Home regimen: glargine 18u; Lispro 10 TID + SSI - Glargine 18u, Lispro 7u TID, SSI - POC glucose TIDAC #Anemia Hgb 10.8 on arrival, MCV - CTM #JOSE Ordered BIPAP, patient intermittently refusing. #Hypothyroidism - Synthroid 75mcg, TSH 2.8 #Depression - Lexapro 10, nortriptyline 10 #GERD - Pantoprazole 20 #Constipation - Senna-Docusate BID - Diet: NPO Diet Sips with meds - DVT PPX: Heparin drip - PT/OT:with time - CODE STATUS: Full Code - Dispo: to reevaluate EMERGENCY CONTACT Contact: Extended Emergency Contact Information Primary Emergency Contact: Dilia Moise Mobile Relation: Sister Secondary Emergency Contact: Peg Rice [facility] Relation: Sister Anita Zaidilashae [facility] Phase II Student Cosigned by Becca Wilcox MD at 07/14/2024 5:58 AM CDT * Plan of Care - Liban Santiago, FITNESS ASSISTANT - 07/10/2024 12:26 AM CDT NPPV - REFUSED Situation: The patient was ordered on NPPV for Obstructive Sleep Apnea (JOSE). RT attempted to place the patient on their hospital provided NPPV machine. The patient did not care to wear their NPPV device, and REFUSED to wear. BROWN Ellsworth, has been notified of their refusal. Plan: Continue to monitor the patient's status and try again if patient becomes distressed. * Plan of Care - Maite Post RN - 07/09/2024 1:31 PM CDT Problem: Skin Integrity Impairment Risk Goal: Mobility will improve Outcome: Progressing Goal: Understanding of ways to prevent future skin breakdown will improve Outcome: Progressing Goal: Nutritional status will improve Outcome: Progressing Goal: Risk for impaired skin integrity will decrease Outcome: Progressing Problem: Fall Risk Goal: Ability to state ways to decrease the risk of falls will improve Outcome: Progressing Goal: Will remain free from falls Outcome: Progressing Goal: Will remain free from injury from falls Outcome: Progressing Problem: Discharge Planning Goal: Understanding discharge needs will improve Outcome: Progressing Problem: Lack of Knowledge Goal: Ability to develop a pain control plan will improve Outcome: Progressing Problem: Medication Goal: Satisfaction with pain management medication regimen will improve Outcome: Progressing Problem: Sensory Goal: Ability to identify factors that increase pain levels will improve while working to decrease the patient's pain levels Outcome: Progressing Problem: Coping Goal: Ability to cope will improve Outcome: Progressing Problem: Health Behavior Goal: Identification of resources available to assist in meeting health care needs will improve Outcome: Progressing Goals: Clinical Goals for the Shift: HDS and free from injury Residential Patient Centered Goal for Treatment: dc to an appropriate setting Summary: progressing toward goal * Medical Student - Anita Victoria BS - 07/09/2024 7:48 AM CDT MEDICINE DAILY PROGRESS NOTE Date of Admission: 07/07/2024 Date of Service: 07/09/24 CARE TEAM Patient: Lei Rodriguez Room: [place] [address] Service: Cardiology Primary Care Physician: Oswaldo Serrano MD Subjective BRIEF HPI Lei Rodriguez is a 63 y.o. female with a hx of MSSA bacteremia 05/2024, A-fib, HFrEF (EF 30%), T2DM, GERD, overactive bladder, obstructive sleep apnea, and intellectual disability who presented to OSH for back pain 06/28 and transferred to [facility] because of concern for osteomyelitis. INTERVAL HISTORY Today patient feels well, but a bit upset she missed breakfast and did not get scheduled for GT. We communicated this will occur tomorrow and she can eat today. Endorsing continued back pain today, tender on exam. She wore her BiPAP overnight. Sister was on phone and her questions about plan of care (below) were answered. OBECTIVE Objective VITALS / I&Os Patient Vital Signs for the past 24 hrs: BP MAP (mmHg) Temp Temp src Pulse Resp SpO2 Weight 07/09/24 0540 -- -- -- -- -- -- -- 112.7 kg (248 lb 6.4 oz) 07/09/24 0025 117/63 76 36.6 ??C (97.8 ??F) Oral 86 18 98 % -- 07/08/24 2200 117/63 -- -- -- -- -- -- -- 07/08/242014 105/54 66 36.4 ??C (97.6 ??F) Oral 66 18 98 % -- 07/08/24 1900 -- -- -- -- 82 -- -- -- 07/08/24 1457 130/78 74 36.6 ??C (97.9 ??F) Oral 70 16 99 % -- 07/08/24 1412 124/66 79 -- -- 83 -- -- -- 07/08/24 1338 122/73 88 -- -- 81 -- -- -- 07/08/24 0809 105/61 70 36.6 ??C (97.9 ??F) Oral 87 20 95 % -- 24hr Min/Max: Temp Min: 36.4 ??C (97.6 ??F) Max: 36.6 ??C (97.9 ??F) Pulse Min: 66 Max: 87 BP Min: 105/54 Max: 130/78 Resp Min: 16 Max: 20 SpO2 Min: 95 % Max: 99 % Intake/Output Summary (Last 24 hours) at 07/09/2024 0749 Last data filed at 07/08/2024 1845 Gross per 24 hour Intake 870 ml Output 500 ml Net 370 ml PHYSICAL EXAM Constitutional: Well-developed, sleeping this AM, and in no distress HEENT: Moist MM. Normal conjunctiva, no scleral icterus, EOMI. Neck: Supple, no jugular venous distension present Cardio: Quiet heart sounds with normal rate, irregular rhythm. No murmurs or extra heart sounds. Pulm/Chest: Normal respiratory effort and breath sounds. No crackles or wheezes. Abd: Soft, non-tender, non-distended. No guarding or rebound present. MSK/Extremities: No obvious deformities. No lower extremity edema. Neuro: AAO to person, place, and time; moving all extremities spontaneously Skin: Skin is warm and dry. Psych: Mood and affect normal. Lab/Radiology/Diagnostic Review: CBC Recent Labs Lab Units 07/08/24214707/07/24213307/07/24 0134 WBC K/cumm 6.1 6.1 7.7 HEMOGLOBIN g/dL 10.8* 9.9* 10.8* HEMATOCRIT % 33.9* 30.4* 33.2* PLATELETS K/cumm 328 310 339 Chem Recent Labs Lab Units 07/08/24214707/08/24201507/08/24 1544 07/08/24 0740 07/07/24213307/07/24 0723 07/07/24 0134 SODIUM mmol/L 135 -- -- -- 136 -- 136 POTASSIUM PLASMA mmol/L 4.4 -- -- -- 4.2 -- See Comment CHLORIDE mmol/L 100 -- -- -- 96* -- 99 CO2 mmol/L 27 -- -- -- 29 -- 29 ANIONGAP mmol/L 8 -- -- -- 11 -- 8 BUN SERUM mg/dL 18 -- -- -- 17 -- 15 CREATININE mg/dL 0.89 -- -- -- 0.96 -- 0.65 GLUCOSE mg/dL 186 -- -- -- 186 -- 186 POC GLUCOSE MONITOR mg/dL -- 190 195 < > -- < > -- CALCIUM mg/dL 9.2 -- -- -- 8.8 -- 8.9 MAGNESIUM mg/dL -- -- -- -- -- -- 1.9 < > = values in this interval not displayed. LFTs Recent Labs Lab Units 07/08/24214707/07/24 2134 07/07/24 0134 ALK PHOS Units/L 171* 174* 182* BILIRUBIN TOTAL mg/dL 0.3 0.3 0.4 TOTAL PROTEIN g/dL 7.2 6.7 7.2 ALT Units/L 11 15 See Comment AST Units/L 35 42 See Comment Coags Recent Labs Lab Units 07/09/24 0459 07/08/248 07/08/24 1254 07/07/24 1247 07/07/24 0134 APTT sec 64* 63* >150* < > 28 INR -- -- -- -- 1.47* < > = values in this interval not displayed. Urine Analysis ABG Micro: IMAGING CURRENT MEDICATIONS Scheduled Medications: ceFAZolin, 2,000 mg, intravenous, Q8H GALINA escitalopram, 10 mg, oral, Daily furosemide, 40 mg, oral, Daily insulin glargine, 18 Units, subcutaneous, QAM insulin lispro, 0-4 Units, subcutaneous, Nightly insulin lispro, 0-5 Units, subcutaneous, TID with meals insulin lispro, 6 Units, subcutaneous, TID with meals levothyroxine, 75 mcg, oral, Daily - 0600 magnesium oxide, 400 mg, oral, Daily metoprolol XL, 50 mg, oral, Daily mirabegron ER, 25 mg, oral, Daily nortriptyline, 10 mg, oral, Daily pantoprazole DR, 20 mg, oral, Daily sacubitriL-valsartan, 1 tablet, oral, BID senna-docusate, 1 tablet, oral, BID sodium chloride 0.9%, 0.5-20 mL, intra-catheter, Q8H [facility] PRN Medications: acetaminophen, 650 mg, 650 mg at 07/08/24 1245 sodium chloride 0.9%, 30 mL cyclobenzaprine, 5 mg, 5 mg at 07/08/24 1245 dextrose, 15 g OR dextrose, 250 mL glucagon, 1 mg heparin, 40 Units/kg, 4,500 Units at 07/08/24 0637 OR heparin, 80 Units/kg ondansetron ODT, 4 mg OR ondansetron, 4 mg polyethylene glycol, 17 g ramelteon, 8 mg sodium chloride 0.9%, 0.5-20 mL Assessment/Plan ASSESSMENT AND PLAN Lei Rodriguez is a 63 y.o. female with a hx of MSSA bacteremia 05/2024, A-fib, HFrEF (EF 30%), T2DM, GERD, overactive bladder, obstructive sleep apnea, and intellectual disability who presented to [facility] with back pain concerning for osteomyelitis and who is being managed for ICD-associated Staph A infection. #recurrent MSSA bacteremia Patient presented to [facility] in May 2024 with left-sided abdominal pain, nausea, vomiting and diarrhea, intermittent fever. 12/10 BCx +MSSA bacteremia, no endocarditis. Patient treated with 4 week course Ancef through 06/21 with (-) cultures. However, presented to [facility] for severe back pain, BCx 07/[address] Spine 07/02 (-) for signs osteomyelitis, but transferred to [facility] for rule out and management of osteomyelitis. CT CAP 07/06 showed new bilateral pulmonary nodules. TTE 07/07 shows small mobile echodensity attached to lead V at atrial level proximal to tricuspidvalve, will further evaluate location of thrombus vs vegetation and valvular involvement. New blood cultures drawn 07/07. MRSA Nares (-). EP, cardiac surgery, ID following. Patient is HIV (-). Patient (+) spinal tenderness on exam increasing concern for osteomyelitis. Patient is hemodynamically stable, low concern septic shock. - Follow blood cultures drawn 07/07: NGTD - ID Recs: Continue Ancef -GT for further evaluation of location of echodensity 11 am tomorrow. NPO at midnight. - MRI spine for osteomyelitis concern - Cardiac surgery: removal ICD pending GT, MRI results - EP recs: reimplant device prior to discharge, R-sided device preferred #Recurrent UTIs #Overactive bladder Patient has been treated for UTIs, most recent UA 1+ bacteria and 0-5 WBCs. Afebrile, low likelihood UTI currently. - Ancef as above - CTM CBC - Vibegron (home) -> Mirabegron for overactive bladder #VFib/VT #ICD Patient had nausea, vomiting, headaches, LOC with head strike and transferred to [facility]. Interrogation revealed 5 episodes of V-fib with ICD shocks. Interrogated 07/08, results show not pacer dependent. Could be bridged with wearable defibrillator after ICD removal, however family is concerned given patient's intellectual disability. - Lytes: K>4 and Mg>2 #Persistent A-fib AFib on admission, started on Dilt drip and previously on Tikosyn, D/Babak with concern endocarditis.Previous GT May 2024 shows LA thrombus. Takes Xareleto at home. - Anticoagulation: Heparin drip given surgical plan - Rate control: metoprolol 50 daily #HFrEF TTE 07/07 shows EF 30%. Euvolemic on exam. - Home GDMT: Entresto 24-26, Coreg 25-> metoprolol 50, Furosemide 40, +spironolactone 12.5 #T2DM A1c 7.7 07/07. Home regimen: glargine 18u; Lispro 10 TID + SSI - Glargine 18u, Lispro 7u TID, SSI - POC glucose TIDAC #Anemia Hgb 10.8 on arrival, MCV - CTM #JOSE Ordered BIPAP, patient wore last night #Hypothyroidism - Synthroid 75mcg, TSH 2.8 #Depression - Lexapro 10, nortriptyline 10 #GERD - Pantoprazole 20 #Constipation - Senna-Docusate BID - Diet: NPO Diet Sips with meds - DVT PPX: Heparin drip - PT/OT:with time - CODE STATUS: Full Code - Dispo: to reevaluate EMERGENCY CONTACT Contact: Extended Emergency Contact Information Primary Emergency Contact: Dilia Moise Mobile Relation: Sister Secondary Emergency Contact: Peg Rice [facility] Relation: Sister Anita Zaidilashae [facility] Phase II Student Cosigned by Becca Wilcox MD at 07/10/2024 8:07 PM CDT * Plan of Care - Flaco Duggan RRT - 07/09/2024 5:03 AM CDT NPPV - PATIENT WORE Situation: The patient was ordered on NPPV for nocturnal use due to a history of Obstructive Sleep Apnea (JOSE). Patient was placed on their hospital provided NPPV machine. Settings: NPPV Mode: CPAP EPAP Pressure: 14 cm H20 FIO2: 21 %. Tolerance: The patient tolerated the NPPV without issue. Plan: Proceed as ordered and continue to monitor the patient. * Consults, Subsequent - Olive Nevarez MD PhD - 07/08/2024 7:05 PM CDT Infectious Disease Subsequent Consult Note Infectious Disease Team: General 1 Contact Information: Please see [facility] Treatment Team listing for up-to-date contact information. Chief complaint of MSSA bacteremia Interval History: Afeb HDS WBC 6 Cr 1 Continues to have back pain. No new concerns. Objective Anti-infectives (From admission, onward) Start Dose/Rate Route Frequency Ordered Stop 07/07/24 0600 ceFAZolin (ANCEF) 2,000 mg/20 mL in sterile water (premix) 2,000 mg 2,000 mg 400 mL/hr over 3 Minutes intravenous Every 8 hours scheduled 07/07/24 0307 Vitals: 24hr Min/Max: Temp Min: 36.6 ??C (97.9 ??F) Max: 36.8 ??C (98.2 ??F) Pulse Min: 70 Max: 101 BP Min: 94/58 Max: 130/78 Resp Min: 16 Max: 20 SpO2 Min: 95 % Max: 99 % Most Recent : Vitals: 07/08/24 1457 BP: 130/78 Pulse: 70 Resp: 16 Temp: 36.6 ??C (97.9 ??F) SpO2: 99% I/O last 2 completed shifts: In: 1250 [P.O.:840; I.V.:390; IV Piggyback:20] Out: 500 [Urine:500] Active LDAs: Peripheral IV 07/06/24 Anterior;Left Hand (Active) Number of days: 2 Peripheral IV 07/07/24 22 G Posterior;Right Hand (Active) Number of days: 1 Physical Exam: Constitutional: Well appearing, no distress. HENT:Oropharynx is moist. Eyes: Conjunctivae and EOM are normal. Neck: Normal range of motion. Cardiovascular: Normal rate, regular rhythm, normal heart sounds and intact distal pulses. Pulmonary/Chest: Effort normal. No respiratory distress. Abdominal: Soft, non-tender to palpation. Neurological: Alert and oriented to person, place, and time. Face symmetric. No dysarthria. Moving all extremities spontaneously. Skin: Skin is warm, dry, and intact. Psychiatric: Normal mood and affect. Behavior is normal. Lab/Radiology/Diagnostic Review: Lab Results Component Value Date MICROBIOLOGY Final Report: Negative 07/07/2024 MICROBIOLOGY Preliminary Report: No growth to date. 07/07/2024 MICROBIOLOGY Preliminary Report: No growth to date. 07/07/2024 MICROBIOLOGY Final Report: No growth 06/13/2024 MICROBIOLOGY Final Report: No growth 06/13/2024 Radiology results were reviewed. Neuro CT Outside Consult Result Date: 07/07/2024 Please refer to separate report for incidental findings. Head CT: No large acute territory infarct and no acute intracranial hemorrhage. Moderate to severe microvascular ischemic disease without prior imaging to assess stability. CT total spine: No CT evidence of osteomyelitis however this does notexclude the diagnosis; an MR spine is recommended for further evaluation. Mediastinal adenopathy, cardiomegaly, pericardial effusion and lung nodules are better evaluated on concurrent CT chest, abdomen and pelvis. The findings, conclusions and recommendations within this report do not replace the initial findings, conclusions and recommendations made at the facility where the study was performedbased upon the imaging and clinical condition at that time. Comparison with the prior report and clinical history is necessary. The provided images may or may not represent the nenana source data setand thus may contain changes that may lower the accuracy of this second-opinion interpretation. Elec tronically signed by: Carlota Murguia M.D. Neuro CT Outside Consult Result Date: 07/07/2024 Please refer to separate report for incidental findings. Head CT: No large acute territory infarct and no acute intracranial hemorrhage. Moderate to severe microvascular ischemic disease without prior imaging to assess stability. CT total spine: No CT evidence of osteomyelitis however this does notexclude the diagnosis; an MR spine is recommended for further evaluation. Mediastinal adenopathy, cardiomegaly, pericardial effusion and lung nodules are better evaluated on concurrent CT chest, abdomen and pelvis. The findings, conclusions and recommendations within this report do not replace the initial findings, conclusions and recommendations made at the facility where the study was performedbased upon the imaging and clinical condition at that time. Comparison with the prior report and clinical history is necessary. The provided images may or may not represent the nenana source data setand thus may contain changes that may lower the accuracy of this second-opinion interpretation. Elec tronically signed by: Carlota Murguia M.D. Neuro CT Outside Consult Result Date: 07/07/2024 Please refer to separate report for incidental findings. Head CT: No large acute territory infarct and no acute intracranial hemorrhage. Moderate to severe microvascular ischemic disease without prior imaging to assess stability. CT total spine: No CT evidence of osteomyelitis however this does notexclude the diagnosis; an MR spine is recommended for further evaluation. Mediastinal adenopathy, cardiomegaly, pericardial effusion and lung nodules are better evaluated on concurrent CT chest, abdomen and pelvis. The findings, conclusions and recommendations within this report do not replace the initial findings, conclusions and recommendations made at the facility where the study was performedbased upon the imaging and clinical condition at that time. Comparison with the prior report and clinical history is necessary. The provided images may or may not represent the nenana source data setand thus may contain changes that may lower the accuracy of this second-opinion interpretation. Elec tronically signed by: Carlota Murguia M.D. Neuro CT Outside Consult Result Date: 07/07/2024 Please refer to separate report for incidental findings. Head CT: No large acute territory infarct and no acute intracranial hemorrhage. Moderate to severe microvascular ischemic disease without prior imaging to assess stability. CT total spine: No CT evidence of osteomyelitis however this does notexclude the diagnosis; an MR spine is recommended for further evaluation. Mediastinal adenopathy, cardiomegaly, pericardial effusion and lung nodules are better evaluated on concurrent CT chest, abdomen and pelvis. The findings, conclusions and recommendations within this report do not replace the initial findings, conclusions and recommendations made at the facility where the study was performedbased upon the imaging and clinical condition at that time. Comparison with the prior report and clinical history is necessary. The provided images may or may not represent the nenana source data setand thus may contain changes that may lower the accuracy of this second-opinion interpretation. Elec tronically signed by: Carlota Murguia M.D. CT Body Outside Consult Result Date: 07/07/2024 1. New bilateral pulmonary nodules which have developed since 05/30/2024 and in the setting of bacteremia may represent septic emboli. 2. No acute process in the abdomen or pelvis or CT explanation for back pain The findings, conclusions and recommendations within this report do not replace the initial findings, conclusions and recommendations made at the facility where the study was performed based upon the imaging and clinical condition at that time. Comparison with the prior report and clinical history is necessary. The provided images may or may not represent the nenana source data set and thus may contain changes that may lower the accuracy of this second-opinion interpretation. Electro nically signed by: Geo Patel MD, PHD CT Body Outside Consult Result Date: 07/07/2024 1. New bilateral pulmonary nodules which have developed since 05/30/2024 and in the setting of bacteremia may represent septic emboli. 2. No acute process in the abdomen or pelvis or CT explanation for back pain The findings, conclusions and recommendations within this report do not replace the initial findings, conclusions and recommendations made at the facility where the study was performed based upon the imaging and clinical condition at that time. Comparison with the prior report and clinical history is necessary. The provided images may or may not represent the nenana source data set and thus may contain changes that may lower the accuracy of this second-opinion interpretation. Electro nically signed by: Geo Patel MD, PHD US Outside Consult Result Date: 07/07/2024 1. No hydronephrosis. The findings and impression are based on the available images, which may not be underwriting service representative of the entire organ or disease entity. Also note that ultrasound image acquisitionis mail handler equipment operator dependent, and that the study was performed outside our facility with no control over image acquisition. In addition, the provided images may or may not represent the nenana source data set and thus may contain changes that may lower the accuracy of this second-opinion interpretation. The findings, conclusions and recommendations within this report do not replace the initial findings,conclusions and recommendations made at the facility where the study was performed based upon the imaging and clinical condition at that time. Comparison with the prior report and clinical history isnecessary. Electronically signed by: Kevin Gottlieb M.D. CT Body Outside Consult Result Date: 07/07/2024 This study was initially nominated as a consult on outside images via Outside Image Sharing Service. However, a consult was not performed because a more recent study of the same exam type was nominated for consultation simultaneously. This study will be used as a comparison exam. Accordingly, there will be no separate report of this study generated by a [facility] Radiologist. Electronically signed by: Kevin Gottlieb M.D. XR Outside Reference Result Date: 07/07/2024 These images are for Reference purposes only and have not been reviewed by [facility] Radiology. There will be no report generated by a [facility] Radiologist. Neuro CT Outside Consult Result Date: 07/07/2024 Please refer to separate report for incidental findings. Head CT: No large acute territory infarct and no acute intracranial hemorrhage. Moderate to severe microvascular ischemic disease without prior imaging to assess stability. CT total spine: No CT evidence of osteomyelitis however this does notexclude the diagnosis; an MR spine is recommended for further evaluation. Mediastinal adenopathy, cardiomegaly, pericardial effusion and lung nodules are better evaluated on concurrent CT chest, abdomen and pelvis. The findings, conclusions and recommendations within this report do not replace the initial findings, conclusions and recommendations made at the facility where the study was performedbased upon the imaging and clinical condition at that time. Comparison with the prior report and clinical history is necessary. The provided images may or may not represent the nenana source data setand thus may contain changes that may lower the accuracy of this second-opinion interpretation. Elec tronically signed by: Carlota Murguia M.D. Neuro CT Outside Consult Result Date: 07/07/2024 Please refer to separate report for incidental findings. Head CT: No large acute territory infarct and no acute intracranial hemorrhage. Moderate to severe microvascular ischemic disease without prior imaging to assess stability. CT total spine: No CT evidence of osteomyelitis however this does notexclude the diagnosis; an MR spine is recommended for further evaluation. Mediastinal adenopathy, cardiomegaly, pericardial effusion and lung nodules are better evaluated on concurrent CT chest, abdomen and pelvis. The findings, conclusions and recommendations within this report do not replace the initial findings, conclusions and recommendations made at the facility where the study was performedbased upon the imaging and clinical condition at that time. Comparison with the prior report and clinical history is necessary. The provided images may or may not represent the nenana source data setand thus may contain changes that may lower the accuracy of this second-opinion interpretation. Elec tronically signed by: Carlota Murguia M.D. Neuro CT Outside Consult Result Date: 07/07/2024 Please refer to separate report for incidental findings. Head CT: No large acute territory infarct and no acute intracranial hemorrhage. Moderate to severe microvascular ischemic disease without prior imaging to assess stability. CT total spine: No CT evidence of osteomyelitis however this does notexclude the diagnosis; an MR spine is recommended for further evaluation. Mediastinal adenopathy, cardiomegaly, pericardial effusion and lung nodules are better evaluated on concurrent CT chest, abdomen and pelvis. The findings, conclusions and recommendations within this report do not replace the initial findings, conclusions and recommendations made at the facility where the study was performedbased upon the imaging and clinical condition at that time. Comparison with the prior report and clinical history is necessary. The provided images may or may not represent the nenana source data setand thus may contain changes that may lower the accuracy of this second-opinion interpretation. Elec tronically signed by: Carlota Murguia M.D. Neuro CT Outside Consult Result Date: 07/07/2024 Please refer to separate report for incidental findings. Head CT: No large acute territory infarct and no acute intracranial hemorrhage. Moderate to severe microvascular ischemic disease without prior imaging to assess stability. CT total spine: No CT evidence of osteomyelitis however this does notexclude the diagnosis; an MR spine is recommended for further evaluation. Mediastinal adenopathy, cardiomegaly, pericardial effusion and lung nodules are better evaluated on concurrent CT chest, abdomen and pelvis. The findings, conclusions and recommendations within this report do not replace the initial findings, conclusions and recommendations made at the facility where the study was performedbased upon the imaging and clinical condition at that time. Comparison with the prior report and clinical history is necessary. The provided images may or may not represent the nenana source data setand thus may contain changes that may lower the accuracy of this second-opinion interpretation. Elec tronically signed by: Carlota Mario Taurus-Naik, M.D. CT Body Outside Consult Result Date: 07/07/2024 1. New bilateral pulmonary nodules which have developed since 05/30/2024 and in the setting of bacteremia may represent septic emboli. 2. No acute process in the abdomen or pelvis or CT explanation for back pain The findings, conclusions and recommendations within this report do not replace the initial findings, conclusions and recommendations made at the facility where the study was performed based upon the imaging and clinical condition at that time. Comparison with the prior report and clinical history is necessary. The provided images may or may not represent the nenana source data set and thus may contain changes that may lower the accuracy of this second-opinion interpretation. Electro nically signed by: Geo Patel MD, PHD CT Body Outside Consult Result Date: 07/07/2024 1. New bilateral pulmonary nodules which have developed since 05/30/2024 and in the setting of bacteremia may represent septic emboli. 2. No acute process in the abdomen or pelvis or CT explanation for back pain The findings, conclusions and recommendations within this report do not replace the initial findings, conclusions and recommendations made at the facility where the study was performed based upon the imaging and clinical condition at that time. Comparison with the prior report and clinical history is necessary. The provided images may or may not represent the nenana source data set and thus may contain changes that may lower the accuracy of this second-opinion interpretation. Electro nically signed by: Geo Patel MD, PHD US Outside Consult Result Date: 07/07/2024 1. No hydronephrosis. The findings and impression are based on the available images, which may not be underwriting service representative of the entire organ or disease entity. Also note that ultrasound image acquisitionis mail handler equipment operator dependent, and that the study was performed outside our facility with no control over image acquisition. In addition, the provided images may or may not represent the nenana source data set and thus may contain changes that may lower the accuracy of this second-opinion interpretation. The findings, conclusions and recommendations within this report do not replace the initial findings,conclusions and recommendations made at the facility where the study was performed based upon the imaging and clinical condition at that time. Comparison with the prior report and clinical history isnecessary. Electronically signed by: Kevin Gottlieb M.D. CT Body Outside Consult Result Date: 07/07/2024 This study was initially nominated as a consult on outside images via Outside Image Sharing Service. However, a consult was not performed because a more recent study of the same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 CBC WITHOUT DIFFERENTIAL Routine 07/13/2024 9:03 PM CDT EGFR Routine 07/13/2024 9:00 PM CDT MAGNESIUM Routine 07/13/2024 9:00 PM CDT COMPREHENSIVE METABOLIC [...] CHEMISTRIES, ARTERIAL Routine 07/13/2024 5:18 PM CDT PREPARE RBC STAT 07/13/2024 4:37 PM CDT GT ADD-ON FOR OR Routine 07/13/2024 3:3 8 [...] CDT APTT Timed 07/13/2024 12:58 AM CDT CBC WITHOUT DIFFERENTIAL Routine 07/13/2024 12:58 AM CDT COMPREHENSIVE METABOLIC PANEL Routine 07/13/2024 12:58 AM CDT POCT GLUCOSE DEVICE Routine 07/12/2024 11:01 PM CDT POCT GLUCOSE DEVICE Routine 07/12/2024 8 :13 AM CDT APTT STAT 07/12/2024 4:17 AM CDT EGFR Routine 07/11/2024 9:19 PM CDT APTT STAT 07/11/2024 9:19 PM CDT CBC WITHOUT DIFFERENTIAL Routine 07/11/2024 9:19 PM CDT MAGNESIUM Routine 07/11/2024 9:19 PM CDT COMPREHENSIVE METABOLIC PANEL Routine 07/11/2024 9:19 PM CDT POCT GLUCOSE DEVICE Routine 07/11/2024 8 :31 PM CDT POCT GLUCOSE DEVICE Routine 07/11/2024 5 :14 PM CDT XR CHEST PA LATERAL 2 VIEWS IP Routine 07/11/2024 4:16 PM CDT POCT GLUCOSE DEVICE Routine 07/11/2024 11:36 AM CDT POCT GLUCOSE DEVICE Routine 07/11/2024 7 :27 AM CDT EGFR Routine 07/10/2024 11:24 PM CDT APTT Timed 07/10/2024 11:24 PM CDT CBC WITHOUT DIFFERENTIAL Routine 07/10/2024 11:24 PM CDT MAGNESIUM Routine 07/10/2024 11:24 PM CDT COMPREHENSIVE METABOLIC PANEL Routine 07/10/2024 11:24 PM CDT APTT STAT 07/10/2024 4:59 PM CDT POCT GLUCOSE DEVICE Routine 07/10/2024 4 :53 PM CDT LIPID PANEL Routine 07/10/2024 2:21 PM CDT POCT GLUCOSE DEVICE Routine 07/10/2024 2 :15 PM CDT TRANSESOPHAGEAL ECHO (GT) W DOPPLER/CF WO CONTRAST Routine 07/10/2024 12:29 PM CDT POCT GLUCOSE DEVICE Routine 07/10/2024 9 :49 AM CDT POCT GLUCOSE DEVICE Routine 07/10/2024 7 :45 AM CDT APTT STAT 07/10/2024 6:43 AM CDT EGFR Routine 07/09/2024 11:48 PM CDT APTT Timed 07/09/2024 11:48 PM CDT CBC WITHOUT DIFFERENTIAL Routine 07/09/2024 11:48 PM CDT LIPID PANEL Routine 07/09/2024 11:48 PM CDT COMPREHENSIVE METABOLIC PANEL Routine 07/09/2024 11:48 PM CDT POCT GLUCOSE [...] CDT EGFR Routine 07/08/2024 9:48 PM CDT HIV 1/2 ANTIBODY PLUS P24 ANTIGEN Routine 07/08/2024 9:48 PM CDT APTT Timed 07/08/2024 9:48 PM CDT CBC WITHOUT DIFFERENTIAL Routine 07/08/2024 9:48 PM CDT COMPREHENSIVE METABOLIC PANEL Routine 07/08/2024 9:48 PM CDT POCT GLUCOSE DEVICE Routine 07/08/2024 8 :16 PM CDT POCT GLUCOSE DEVICE Routine 07/08/2024 3 :44 PM CDT CRITICAL RESULT CALLBACK HEMATOLOGY STAT 07/08/2024 12:54 PM CDT APTT STAT 07/08/2024 12:54 PM CDT POCT GLUCOSE DEVICE Routine 07/08/2024 11:03 AM CDT POCT GLUCOSE DEVICE Routine 07/08/2024 7 :40 AM CDT APTT STAT 07/08/2024 4:53 AM CDT EGFR Routine 07/07/2024 9:34 PM CDT APTT Timed 07/07/2024 9:34 PM CDT CBC WITHOUT DIFFERENTIAL Routine 07/07/2024 9:34 PM CDT COMPREHENSIVE METABOLIC PANEL Routine 07/07/2024 9:34 PM CDT POCT GLUCOSE DEVICE Routine 07/07/2024 9 :19 PM CDT POCT GLUCOSE DEVICE Routine 07/07/2024 4 :49 PM CDT TRANSTHORACIC ECHO (TTE) COMPLETE W DOPPLER/CF W CONTRAST Routine 07/07/2024 2:23 PM CDT APTT STAT 07/07/2024 12:47 PM CDT POCT GLUCOSE DEVICE Routine 07/07/2024 12:33 PM CDT POCT GLUCOSE DEVICE Routine 07/07/2024 7 :23 AM CDT US OUTSIDE CONSULT Routine 07/07/2024 7: [address] BODY OUTSIDE CONSULT Routine 07/07/2024 6:[address] OUTSIDE CONSULT Routine 07/07/2024 6:[address] OUTSIDE CONSULT Routine 07/07/2024 6:43 AM CDT XR TRANSFER OF OUTSIDE FILMS Routine 07/07/2024 6:[address] OUTSIDE CONSULT Routine 07/07/2024 6:[address] BODY OUTSIDE CONSULT Routine 07/07/2024 6:[address] OUTSIDE CONSULT Routine 07/07/2024 6:[address] BODY OUTSIDE CONSULT Routine 07/07/2024 6:26 AM CDT INFECTION PREVENTION MRSA ONLY (STAPHYLOCOCCUS AUREUS) CULTURE Routine 07/07/2024 4:24 AM CDT TROPONIN I HIGH-SENSITIVITY Routine 07/07/2024 1:34 AM CDT LACTATE Routine 07/07/2024 1:34 AM CDT EGFR Routine 07/07/2024 1:34 AM CDT DIFFERENTIAL AUTO Routine 07/07/2024 1:3 4 AM CDT PRO B-TYPE NATRIURETIC PEPTIDE Routine 07/07/2024 1:34 AM CDT CBC WITH AUTO DIFFERENTIAL Routine 07/07/2024 1:34 AM CDT BLOOD CULTURE Routine 07/07/2024 1:34 AM CDT BLOOD CULTURE Routine 07/07/2024 1:34 AM CDT APTT Routine 07/07/2024 1:34 AM CDT ERYTHROCYTE SEDIMENTATION RATE Routine 07/07/2024 1:34 AM CDT PROTIME-INR Routine 07/07/2024 1:34 AM CDT TYPE AND SCREEN Timed 07/07/2024 1:34 AM CDT CRP (ACUTE PHASE) Routine 07/07/2024 1:3 4 AM CDT MAGNESIUM Routine 07/07/2024 1:34 AM CDT HEMOGLOBIN A1C Routine 07/07/2024 1:34 AM CDT COMPREHENSIVE METABOLIC PANEL Routine 07/07/2024 1:34 AM CDT documented in this encounter Results * POCT glucose (08/02/2024 5:24 PM CDT) Glucose, POC 115 70 - 199 mg/dL Blood 08/02/2024 5:24 PM CDT 08/02/2024 5:24 PM CDT Russ Pride MD LAB POCT ORDERABLES - DEVICE Final Result Performing Organization Address City/[facility]/ZIP Co de Phone Number [facility] [place] [address] * POCT glucose (08/02/2024 11:49 AM CDT) Glucose, POC 189 70 - 199 mg/dL Blood 08/02/2024 11:4 9 AM CDT 08/02/2024 11:49 AM CDT Russ Pride MD LAB POCT ORDERABLES - DEVICE Final Result OL[facility] [place] [address] * POCT glucose (08/02/2024 8:33 AM CDT) Glucose, POC 142 70 - 199 mg/dL Blood 08/02/2024 8:33 AM CDT 08/02/2024 8:33 AM CDT us Russ Pride MD LAB POCT ORDERABLES - DEVICE Final Result Performing Organization Address [facility] Co de Phone Number [facility] [place] [address] * eGFR (08/01/2024 8:56 PM CDT) eGFR [...] ORDERABLES Ayanna l Result Performing Organization Address City/[facility]/ZIP Co de Phone Number [facility] [place] [address] * Magnesium (08/01/2024 8:56 PM CDT) Pathologist [facility] Magnesium 2.1 1.4 - 2.5 mg/dL Blood 08/01/2024 8:56 PM CDT 08/01/2024 9:48 PM CDT Ynes Roman MD LAB BLOOD ORDERABLES Ayanna george Result [facility] Department [place] [address] * (ABNORMAL) Comprehensive metabolic panel (08/01/2024 8:56 PM CDT) Pathologist [facility] Sodium 136 135 - 145 mmol/L Potassium, pl 3.8 3.3 - 4.9 mmol/L [facility] Chloride 99 97 - 110 mmol/L [facility] CO2 28 22 - 32 mmol/L [facility] Anion gap 9 2 - 15 mmol/L [facility] BUN 20 6 - 25 mg/dL [facility] Creatinine 0.93 0.60 - 1.10 mg/dL [facility] Glucose 191 70 - 199 mg/dL [facility] Comment: Interpretive Data Fasting glucose >/= [...] 2022. Calcium 9.3 8.5 - 10.3 mg/dL [facility] Bilirubin, total 0.2 0.1 - 1.2 mg/dL [facility] Protein, pl 7.0 6.5 - 8.5 g/dL [facility] Albumin 3.2(L) 3.5 - 5.0 g/dL [facility] Alk phos 151(H) 40 - 130 Units/L [facility] ALT 18 7 - 45 Units/L [facility] AST 31 10 - 45 Units/L [facility] Blood 08/01/2024 8:56 PM CDT 08/01/2024 9:48 PM CDT Elvira Cooper MD LAB BLOOD ORDERABLES Ayanna l Result Performing Organization Address [facility] Co de Phone Number [facility] Department [place] [address] * (ABNORMAL) CBC without differential (08/01/2024 8:56 PM CDT) WBC 6.3 3.8 - 9.9 K/cumm Hgb 11.3(L) 11.9 - 15.5 g/dL [facility] Hct 34.4(L) 35.6 - 45.5 % [facility] Plt 228 150 - 400 K/cumm [facility] MPV 9.7 9.1 - 12.3 fL [facility] RBC 3.49(L) 3.90 - 5.20 M/cumm [facility] MCV 98.6(H) 81.3 - 96.4 fL [facility] MCH 32.4 27.1 - 33.3 pg [facility] MCHC 32.8 32.3 - 35.7 g/dL [facility] RDW CV 13.2 11.1 - 14.9 % [facility] RDW SD 47.4 35.7 - 48.1 fL [facility] NRBC abs 0.00 0.00 - 0.01 K/cumm [facility] Blood 08/01/2024 8:56 PM CDT 08/01/2024 9:50 PM CDT Elvira Cooper MD LAB BLOOD ORDERABLES Ayanna l Result Performing Organization Address City/[facility]/ZIP Co de Phone Number [facility] Department [place] [address] * POCT glucose (08/01/2024 8:55 PM CDT) Glucose, POC 192 70 - 199 mg/dL Blood 08/01/2024 8:55 PM CDT 08/01/2024 8:55 PM CDT Russ Pride MD LAB POCT ORDERABLES - DEVICE Final [facility] [place] [address] * (ABNORMAL) POCT glucose (08/01/2024 4:48 PM CDT) Glucose, POC 231(H) 70 - 199 mg/dL Blood 08/01/2024 4:48 PM CDT 08/01/2024 4:48 PM CDT Russ Pride MD LAB POCT ORDERABLES - DEVICE Final Result Performing Organization Address City/[facility]/ZIP Co de Phone Number OLAM[facility] [place] [address] * POCT glucose (08/01/2024 2:44 PM CDT) Glucose, POC 91 70 - 199 mg/dL Blood 08/01/2024 2:44 PM CDT 08/01/2024 2:44 PM CDT Russ Pride MD LAB POCT ORDERABLES - DEVICE Final Result Performing Organization Address City/[facility]/ZIP [place] [address] * (ABNORMAL) POCT glucose (08/01/2024 11:41 AM CDT) Glucose, POC 232(H) 70 - 199 mg/dL Blood 08/01/2024 11:4 1 AM CDT 08/01/2024 11:41 AM CDT Russ Pride MD LAB POCT ORDERABLES - DEVICE Final Result Performing Organization Address [facility] de Phone Number [facility] [place] [address] * POCT glucose (08/01/2024 8:02 AM CDT) [facility] Glucose, POC 199 70 - 199 mg/dL Blood 08/01/2024 8:02 AM CDT 08/01/2024 8:02 AM CDT Russ Pride MD LAB POCT ORDERABLES - DEVICE Final Result Performing Organization Address [facility] Phone Number [facility] [place] [address] * Potassium, whole blood (08/01/2024 5:22 AM CDT) [facility] Potassium, bld 4.2 3.3 - 4.9 mmol/L Blood 08/01/2024 5:22 AM CDT 08/01/2024 5:48 AM CDT Russ Pride MD LAB BLOOD ORDERABLES Final Re sult Performing Organization Address [facility] de Phone Number [facility] [place] [address] * eGFR (07/31/2024 10:13 PM CDT) [facility] eGFR 61 >=60 mL/min/1. 73 m2 Comment: [...] ORDERABLES Ayanna l Result Performing Organization Address [facility] Co de Phone Number [facility] Department [place] [address] * Magnesium (07/31/2024 10:13 PM CDT) Magnesium 1.9 1.4 - 2.5 mg/dL Blood 07/31/2024 10:1 3 PM CDT 07/31/2024 10:52 PM CDT us Ynes Roman MD LAB BLOOD ORDERABLES Ayanna l Result Performing Organization Address [facility] Co de Phone Number [facility] Department [place] [address] * (ABNORMAL) Comprehensive metabolic panel (07/31/2024 10:13 PM CDT) Sodium 138 135 - 145 mmol/L Potassium, pl 4.2 3.3 - 4.9 mmol/L [facility] Comment:Hemolyzed; Potassium value may be falsely elevated by as much as 0.3-0.5 mmol/L. Suggest redraw and reanalysis. Chloride 100 97 - 110 mmol/L [facility] CO2 28 22 - 32 mmol/L [facility] Anion gap 10 2 - 15 mmol/L [facility] BUN 27(H) 6 - 25 mg/dL [facility] Creatinine 1.04 0.60 - 1.10 mg/dL [facility] Glucose 216(H) 70 - 199 mg/dL [facility] Comment: Interpretive Data Fasting glucose >/= [...] 2022. Calcium 9.6 8.5 - 10.3 mg/dL [facility] Bilirubin, total 0.2 0.1 - 1.2 mg/dL [facility] Protein, pl 7.2 6.5 - 8.5 g/dL [facility] Albumin 3.4(L) 3.5 - 5.0 g/dL [facility] Alk phos 161(H) 40 - 130 Units/L [facility] ALT 18 7 - 45 Units/L [facility] AST 26 10 - 45 Units/L [facility] Comment:Hemolyzed; result ma y be falsely elevated Blood 07/31/2024 10:1 3 PM CDT 07/31/2024 10:52 PM CDT us Elvira Cooper MD LAB BLOOD ORDERABLES Ayanna l Result Performing Organization Address City/State/[facility] de Phone Number [facility] Department [place] [address] * (ABNORMAL) CBC without differential (07/31/2024 10:13 PM CDT) WBC 6.3 3.8 - 9.9 K/cumm Hgb 11.6(L) 11.9 - 15.5 g/dL [facility] Hct 35.7 35.6 - 45.5 % [facility] Plt 266 150 - 400 K/cumm [facility] MPV 9.6 9.1 - 12.3 fL [facility] RBC 3.67(L) 3.90 - 5.20 M/cumm [facility] MCV 97.3(H) 81.3 - 96.4 fL [facility] MCH 31.6 27.1 - 33.3 pg [facility] MCHC 32.5 32.3 - 35.7 g/dL [facility] RDW CV 13.2 11.1 - 14.9 % [facility] RDW SD 47.4 35.7 - 48.1 fL [facility] NRBC abs 0.00 0.00 - 0.01 K/cumm [facility] Blood 07/31/2024 10:1 3 PM CDT 07/31/2024 10:52 PM CDT us Elvira Cooper MD LAB BLOOD ORDERABLES Ayanna l Result Performing Organization Address [facility] Co de Phone Number [facility] Department [place] [address] * POCT glucose (07/31/2024 5:23 PM CDT) Pathologist [facility] Glucose, POC 153 70 - 199 mg/dL Blood 07/31/2024 5:23 PM CDT 07/31/2024 5:23 PM CDT us Russ Pride MD LAB POCT ORDERABLES - DEVICE Final Result Performing Organization Address [facility] Co de Phone Number [facility] [place] [address] * (ABNORMAL) POCT glucose (07/31/2024 11:34 AM CDT) Glucose, POC 316(H) 70 - 199 mg/dL Blood 07/31/2024 11:3 4 AM CDT 07/31/2024 11:34 AM CDT Russ Pride MD LAB POCT ORDERABLES - DEVICE Final Result Performing Organization Address [facility] Co de Phone Number [facility] [place] [address] * (ABNORMAL) POCT glucose (07/31/2024 8:14 AM CDT) Glucose, POC 211(H) 70 - 199 mg/dL Blood 07/31/2024 8:14 AM CDT 07/31/2024 8:14 AM CDT Russ Pride MD LAB POCT ORDERABLES - DEVICE Final Result Performing Organization Address [facility] Co de Phone Number [facility] Department [place] [address] * CP-CRE culture, surveillance Rectal swab (07/31/2024 5:59 AM CDT) Report Final Report: Negative Rectal swab 07/31/2024 5:59 AM CDT 07/31/2024 6:25 AM CDT Narrative [facility] - 08/01/2024 12:24 PM CDT Interpretive Data The screening agar used for the detection of carbapenemase-producing Enterobacterales (CP-CRE) has not been approved by the Food and Drug Administration. The performance characteristics of this medium have been evaluated and verified by the [facility]. This media demonstrates highest sensitivity for KPC and NDM-1 producing isolates. This screening assay is exclusively intended for infection control and surveillance, not for patient diagnosis or treatment purposes. Current interpretive data was last revised on 2023. us Azeem Urais MD LAB MICROBIOLOGY - GENERAL OR DERABLES Final Result [facility] Department [place] [address] * (ABNORMAL) eGFR (07/31/2024 2:28 AM CDT) [...] ORDERABLES Ayanna l Result Performing Organization Address City/[facility]/ZIP Co de Phone Number [facility] Department [place] [address] * Magnesium (07/31/2024 2:28 AM CDT) [facility] Magnesium 2.0 1.4 - 2.5 mg/dL Blood 07/31/2024 2:28 AM CDT 07/31/2024 3:35 AM CDT Ynes Roman MD LAB BLOOD ORDERABLES Ayanna l Result Performing Organization Address [facility] Co de Phone Number [facility] Department [place] [address] * (ABNORMAL) Comprehensive metabolic panel (07/31/2024 2:28 AM CDT) [facility] Sodium 139 135 - 145 mmol/L Potassium, pl 4.6 3.3 - 4.9 mmol/L [facility] Chloride 100 97 - 110 mmol/L [facility] CO2 28 22 - 32 mmol/L [facility] Anion gap 11 2 - 15 mmol/L [facility] BUN 22 6 - 25 mg/dL [facility] Creatinine 1.09 0.60 - 1.10 mg/dL [facility] Glucose 227(H) 70 - 199 mg/dL [facility] Comment: Interpretive Data Fasting glucose >/= [...] 2022. Calcium 9.4 8.5 - 10.3 mg/dL [facility] Bilirubin, total 0.2 0.1 - 1.2 mg/dL [facility] [facility] Protein, pl 6.8 6.5 - 8.5 g/dL [facility] Albumin 3.3(L) 3.5 - 5.0 g/dL [facility] Alk phos 141(H) 40 - 130 Units/L [facility] ALT 8 7 - 45 Units/L [facility] AST 29 10 - 45 Units/L [facility] Blood 07/31/2024 2:28 AM CDT 07/31/2024 3:35 AM CDT Elvira Cooper MD LAB BLOOD ORDERABLES Ayanna vazquez Result [facility] Department [place] [address] * (ABNORMAL) CBC without differential (07/31/2024 2:28 AM CDT) WBC 6.0 3.8 - 9.9 K/cumm Hgb 11.3(L) 11.9 - 15.5 g/dL [facility] Hct 34.4(L) 35.6 - 45.5 % [facility] Plt 240 150 - 400 K/cumm [facility] MPV 9.3 9.1 - 12.3 fL [facility] RBC 3.53(L) 3.90 - 5.20 M/cumm [facility] MCV 97.5(H) 81.3 - 96.4 fL [facility] MCH 32.0 27.1 - 33.3 pg [facility] MCHC 32.8 32.3 - 35.7 g/dL [facility] RDW CV 13.1 11.1 - 14.9 % [facility] RDW SD 46.6 35.7 - 48.1 fL [facility] NRBC abs 0.00 0.00 - 0.01 K/cumm [facility] Blood 07/31/2024 2:28 AM CDT 07/31/2024 3:35 AM CDT Elvira Cooper MD LAB BLOOD ORDERABLES Ayanna l Result Performing Organization Address [facility]/ZIP Co de Phone Number [facility] [employer] [place], [place] [id number] * POCT glucose (07/30/2024 11:43 PM CDT) Glucose, POC 195 70 - 199 mg/dL Blood 07/30/2024 11:4 3 PM CDT 07/30/2024 11:43 PM CDT us Russ Pride MD LAB POCT ORDERABLES - DEVICE Final Result Performing Organization Address [facility] Co de Phone Number [facility] [place] [address] * POCT glucose (07/30/2024 7:51 PM CDT) Glucose, POC 78 70 - 199 mg/dL Blood 07/30/2024 7:51 PM CDT 07/30/2024 7:51 PM CDT Russ Pride MD LAB POCT ORDERABLES - DEVICE Final Result Performing Organization Address [facility] Co de Phone Number [facility] [employer] [place], [place] [id number] * (ABNORMAL) POCT glucose (07/30/2024 5:06 PM CDT) Glucose, POC 248(H) 70 - 199 mg/dL Blood 07/30/2024 5:06 PM CDT 07/30/2024 5:06 PM CDT Russ Pride MD LAB POCT ORDERABLES - DEVICE Final Result Performing Organization Address City/[facility]/ZIP Co de Phone Number [facility] [place] [address] * (ABNORMAL) POCT glucose (07/30/2024 11:25 AM CDT) Glucose, POC 210(H) 70 - 199 mg/dL Blood 07/30/2024 11:2 5 AM CDT 07/30/2024 11:25 AM CDT Russ Pride MD LAB POCT ORDERABLES - DEVICE Final Result Performing Organization Address City/[facility] de Phone Number [facility] Department [place] [address] * POCT glucose (07/30/2024 8:25 AM CDT) Glucose, POC 154 70 - 199 mg/dL Blood 07/30/2024 8:25 AM CDT 07/30/2024 8:25 AM CDT Russ Pride MD LAB POCT ORDERABLES - DEVICE Final Result Performing Organization Address City/[facility] de Phone Number [facility] Department [place] [address] * Differential, auto (07/29/2024 10:10 PM CDT) [facility] Neutrophil abs 4.2 1.5 - 6.5 K/cumm Imm gran abs 0.0 0.0 - 0.1 K/cumm [facility] Lymphocyte abs 1.5 0.8 - 3.3 K/cumm [facility] Monocyte abs 0.4 0.2 - 0.8 K/cumm [facility] Eosinophil abs 0.2 0.0 - 0.5 K/cumm [facility] Basophil abs 0.1 0.0 - 0.1 K/cumm [facility] Neutrophil pct 65.4 % [facility] Comment: Interpretive Data Percent cell count reference ranges are not reported, since discordance with absolute values may lead to misinterpretation of CBC data. Current Interpretive Data was last revised on 2018. Imm gran pct 0.3 % [facility] Comment: Interpretive Data Percent cell count reference ranges are not reported, since discordance with absolute values may lead to misinterpretation of CBC data. Current Interpretive Data was last revised on 2018. Lymphocyte pct 23.8 % [facility] Comment: Interpretive Data Percent cell count reference ranges are not reported, since discordance with absolute values may lead to misinterpretation of CBC data. Current Interpretive Data was last revised on 2018. Monocyte pct 6.1 % [facility] Comment: Interpretive Data Percent cell count reference ranges are not reported, since discordance with absolute values may lead to misinterpretation of CBC data. Current Interpretive Data was last revised on 2018. Eosinophil pct 3.0 % [facility] Comment: Interpretive Data Percent cell count reference ranges are not reported, since discordance with absolute values may lead to misinterpretation of CBC data. Current Interpretive Data was last revised on 2018. Basophil pct 1.4 % [facility] Comment: Interpretive Data Percent cell count reference ranges are not reported, since discordance with absolute values may lead to misinterpretation of CBC data. Current Interpretive Data was last revised on 2018. Blood 07/29/2024 10:1 0 PM CDT 07/29/2024 11:00 PM CDT us Russ Pride MD LAB BLOOD ORDERABLES Final Re sult [facility] Department [place] [address] * eGFR (07/29/2024 10:10 PM CDT) eGFR [...] 0 PM CDT 07/29/2024 10:49 PM CDT Elvira Cooper MD LAB BLOOD ORDERABLES Ayanna l Result Performing Organization Address City/[facility] Co de Phone Number [facility] [place] [address] * Magnesium (07/29/2024 10:10 PM CDT) Magnesium 1.8 1.4 - 2.5 mg/dL Blood 07/29/2024 10:1 0 PM CDT 07/29/2024 10:49 PM CDT Ynes Roman MD LAB BLOOD ORDERABLES Ayanna l Result Performing Organization Address City/[facility]/ZIP Co de Phone Number [facility] [place] [address] * (ABNORMAL) Comprehensive metabolic panel (07/29/2024 10:10 PM CDT) Sodium 137 135 - 145 mmol/L Potassium, pl 4.5 3.3 - 4.9 mmol/L [facility] Chloride 100 97 - 110 mmol/L [facility] CO2 27 22 - 32 mmol/L [facility] Anion gap 10 2 - 15 mmol/L [facility] BUN 19 6 - 25 mg/dL [facility] Creatinine 1.01 0.60 - 1.10 mg/dL [facility] Glucose 273(H) 70 - 199 mg/dL [facility] Comment: Interpretive Data Fasting glucose >/= [...] 2022. Calcium 9.4 8.5 - 10.3 mg/dL [facility] Bilirubin, total 0.2 0.1 - 1.2 mg/dL [facility] Protein, pl 7.5 6.5 - 8.5 g/dL [facility] Albumin 3.8 3.5 - 5.0 g/dL [facility] Alk phos 157(H) 40 - 130 Units/L [facility] ALT 7 7 - 45 Units/L [facility] AST 25 10 - 45 Units/L [facility] Blood 07/29/2024 10:1 0 PM CDT 07/29/2024 10:49 PM CDT us Elvira Cooper MD LAB BLOOD ORDERABLES Ayanna vazquez Result [facility] Department [place] [address] * (ABNORMAL) CBC without differential (07/29/2024 10:10 PM CDT) Pathologist [facility] WBC 6.3 3.8 - 9.9 K/cumm Hgb 12.4 11.9 - 15.5 g/dL [facility] Hct 36.6 35.6 - 45.5 % [facility] Plt 301 150 - 400 K/cumm [facility] MPV 9.5 9.1 - 12.3 fL [facility] RBC 3.78(L) 3.90 - 5.20 M/cumm [facility] MCV 96.8(H) 81.3 - 96.4 fL [facility] MCH 32.8 27.1 - 33.3 pg [facility] MCHC 33.9 32.3 - 35.7 g/dL [facility] RDW CV 13.1 11.1 - 14.9 % [facility] RDW SD 46.3 35.7 - 48.1 fL [facility] NRBC abs 0.00 0.00 - 0.01 K/cumm [facility] Blood 07/29/2024 10:1 0 PM CDT 07/29/2024 10:48 PM CDT Elvira Cooper MD LAB BLOOD ORDERABLES Ayanna l Result [facility] [place] [address] * (ABNORMAL) POCT glucose (07/29/2024 9:30 PM CDT) Glucose, POC 262(H) 70 - 199 mg/dL Blood 07/29/2024 9:30 PM CDT 07/29/2024 9:30 PM CDT Russ Pride MD LAB POCT ORDERABLES - DEVICE Final Result [facility] [place] [address] * POCT glucose (07/29/2024 5:11 PM CDT) Glucose, POC 153 70 - 199 mg/dL Blood 07/29/2024 5:11 PM CDT 07/29/2024 5:11 PM CDT Russ Pride MD LAB POCT ORDERABLES - DEVICE Final Result Performing Organization Address [facility] de Phone Number [facility] [place] [address] * (ABNORMAL) POCT glucose (07/29/2024 11:30 AM CDT) Glucose, POC 268(H) 70 - 199 mg/dL Comment:Glu2: RN/MD Notified Glucose comment 1 Glu2: RN/MD Notified [facility] Blood 07/29/2024 11:3 0 AM CDT 07/29/2024 11:30 AM CDT Russ Pride MD LAB POCT ORDERABLES - DEVICE Final Result Performing Organization Address [facility] de Phone Number [facility] [place] [address] * (ABNORMAL) POCT glucose (07/29/2024 8:37 AM CDT) Glucose, POC 280(H) 70 - 199 mg/dL Comment:Glu2: RN/MD Notified Glucose comment 1 Glu2: RN/MD Notified [facility] Blood 07/29/2024 8:37 AM CDT 07/29/2024 8:37 AM CDT Russ Pride MD LAB POCT ORDERABLES - DEVICE Final Result Performing Organization Address [facility] [place] [address] * (ABNORMAL) POCT glucose (07/29/2024 3:08 AM CDT) Glucose, POC 285(H) 70 - 199 mg/dL Blood 07/29/2024 3:08 AM CDT 07/29/2024 3:08 AM CDT us Russ Pride MD LAB POCT ORDERABLES - DEVICE Final Result Performing Organization Address [facility] de Phone Number [facility] Department [place] [address] * eGFR (07/29/2024 3:02 AM CDT) eGFR [...] ORDERABLES Ayanna l Result Performing Organization Address [facility]/State/ZIP Co de Phone Number [facility] Department [place] [address] * Magnesium (07/29/2024 3:02 AM CDT) Pathologist [facility] Magnesium 1.8 1.4 - 2.5 mg/dL Blood 07/29/2024 3:02 AM CDT 07/29/2024 3:33 AM CDT Ynes Roman MD LAB BLOOD ORDERABLES Ayanna l Result [facility] Department [place] [address] * (ABNORMAL) Comprehensive metabolic panel (07/29/2024 3:02 AM CDT) [facility] Sodium 136 135 - 145 mmol/L Potassium, pl 4.4 3.3 - 4.9 mmol/L [facility] Chloride 99 97 - 110 mmol/L [facility] CO2 27 22 - 32 mmol/L [facility] Anion gap 10 2 - 15 mmol/L [facility] BUN 26(H) 6 - 25 mg/dL [facility] Creatinine 0.80 0.60 - 1.10 mg/dL [facility] Glucose 254(H) 70 - 199 mg/dL [facility] Comment: Interpretive Data Fasting glucose >/= [...] 2022. Calcium 9.7 8.5 - 10.3 mg/dL [facility] Bilirubin, total 0.2 0.1 - 1.2 mg/dL [facility] Protein, pl 7.1 6.5 - 8.5 g/dL [facility] Albumin 3.3(L) 3.5 - 5.0 g/dL [facility] Alk phos 161(H) 40 - 130 Units/L [facility] ALT 11 7 - 45 Units/L [facility] AST 24 10 - 45 Units/L [facility] Blood 07/29/2024 3:02 AM CDT 07/29/2024 3:33 AM CDT Elvira Cooper MD LAB BLOOD ORDERABLES Ayanna l Result Performing Organization Address City/[facility] Co de Phone Number [facility] Department [place] [address] * (ABNORMAL) CBC without differential (07/29/2024 3:02 AM CDT) WBC 7.0 3.8 - 9.9 K/cumm Hgb 11.5(L) 11.9 - 15.5 g/dL [facility] Hct 35.6 35.6 - 45.5 % [facility] Plt 282 150 - 400 K/cumm [facility] MPV 9.6 9.1 - 12.3 fL [facility] RBC 3.63(L) 3.90 - 5.20 M/cumm [facility] MCV 98.1(H) 81.3 - 96.4 fL [facility] MCH 31.7 27.1 - 33.3 pg [facility] MCHC 32.3 32.3 - 35.7 g/dL [facility] RDW CV 13.0 11.1 - 14.9 % [facility] RDW SD 46.3 35.7 - 48.1 fL [facility] NRBC abs 0.00 0.00 - 0.01 K/cumm [facility] Blood 07/29/2024 3:02 AM CDT 07/29/2024 3:34 AM CDT Elvira Cooper MD LAB BLOOD ORDERABLES Ayanna l Result [facility] [place] [address] * (ABNORMAL) POCT glucose (07/28/2024 9:05 PM CDT) Glucose, POC 304(H) 70 - 199 mg/dL Blood 07/28/2024 9:05 PM CDT 07/28/2024 9:05 PM CDT us Rsus Pride MD LAB POCT ORDERABLES - DEVICE Final Result Performing Organization Address [facility] [place] [address] * (ABNORMAL) POCT glucose (07/28/2024 6:00 PM CDT) Glucose, POC 236(H) 70 - 199 mg/dL Blood 07/28/2024 6:00 PM CDT 07/28/2024 6:00 PM CDT Russ Pride MD LAB POCT ORDERABLES - DEVICE Final Result Performing Organization Address [facility] Co de Phone Number [facility] [place] [address] * POCT glucose (07/28/2024 12:20 PM CDT) Glucose, POC 193 70 - 199 mg/dL Blood 07/28/2024 12:2 0 PM CDT 07/28/2024 12:20 PM CDT Russ Pride MD LAB POCT ORDERABLES - DEVICE Final Result Performing Organization Address City/[facility]/ZIP Co de Phone Number [facility] [place] [address] * POCT glucose (07/28/2024 8:30 AM CDT) Glucose, POC 197 70 - 199 mg/dL Blood 07/28/2024 8:30 AM CDT 07/28/2024 8:30 AM CDT us Russ Pride MD LAB POCT ORDERABLES - DEVICE Final Result [facility] Department [place] [address] * eGFR (07/28/2024 5:08 AM CDT) eGFR [...] ORDERABLES Ayanna l Result Performing Organization Address City/[facility]/ZIP Co de Phone Number [facility] Department [place] [address] * Magnesium (07/28/2024 5:08 AM CDT) [facility] Magnesium 1.9 1.4 - 2.5 mg/dL Blood 07/28/2024 5:08 AM CDT 07/28/2024 5:56 AM CDT Ynes Roman MD LAB BLOOD ORDERABLES Ayanna l Result Performing Organization Address [facility] de Phone Number [facility] Department [place] [address] * (ABNORMAL) Comprehensive metabolic panel (07/28/2024 5:08 AM CDT) [facility] Sodium 138 135 - 145 mmol/L Potassium, pl 4.8 3.3 - 4.9 mmol/L [facility] Comment:Hemolyzed; Potassium value may be falsely elevated by as much as 0.3-0.5 mmol/L. Suggest redraw and reanalysis. Chloride 101 97 - 110 mmol/L [facility] CO2 29 22 - 32 mmol/L [facility] Anion gap 8 2 - 15 mmol/L [facility] BUN 23 6 - 25 mg/dL [facility] Creatinine 0.85 0.60 - 1.10 mg/dL [facility] Glucose 173 70 - 199 mg/dL [facility] Comment: Interpretive Data Fasting glucose >/= [...] 2022. Calcium 9.3 8.5 - 10.3 mg/dL [facility] Bilirubin, total 0.3 0.1 - 1.2 mg/dL [facility] Protein, pl 7.1 6.5 - 8.5 g/dL [facility] Albumin 3.2(L) 3.5 - 5.0 g/dL [facility] Alk phos 137(H) 40 - 130 Units/L [facility] ALT 7 7 - 45 Units/L [facility] AST 26 10 - 45 Units/L [facility] Comment:Hemolyzed; result ma y be falsely elevated Blood 07/28/2024 5:08 AM CDT 07/28/2024 5:56 AM CDT us Elvira Cooper MD LAB BLOOD ORDERABLES Ayanna vazquez Result [facility] Department [place] [address] * (ABNORMAL) CBC without differential (07/28/2024 5:08 AM CDT) WBC 6.3 3.8 - 9.9 K/cumm Hgb 11.5(L) 11.9 - 15.5 g/dL [facility] Hct 34.7(L) 35.6 - 45.5 % [facility] Plt 264 150 - 400 K/cumm [facility] MPV 9.6 9.1 - 12.3 fL [facility] RBC 3.51(L) 3.90 - 5.20 M/cumm [facility] MCV 98.9(H) 81.3 - 96.4 fL [facility] MCH 32.8 27.1 - 33.3 pg [facility] MCHC 33.1 32.3 - 35.7 g/dL [facility] RDW CV 13.0 11.1 - 14.9 % [facility] RDW SD 46.8 35.7 - 48.1 fL [facility] NRBC abs 0.00 0.00 - 0.01 K/cumm [facility] Blood 07/28/2024 5:08 AM CDT 07/28/2024 5:55 AM CDT Elvira Cooper MD LAB BLOOD ORDERABLES Ayanna l Result Performing Organization Address [facility] de Phone Number [facility] [place] [address] * POCT glucose (07/27/2024 8:55 PM CDT) Glucose, POC 139 70 - 199 mg/dL Blood 07/27/2024 8:55 PM CDT 07/27/2024 8:55 PM CDT Russ Pride MD LAB POCT ORDERABLES - DEVICE Final Result Performing Organization Address [facility] Phone Number [facility] [place] [address] * POCT glucose (07/27/2024 5:11 PM CDT) Glucose, POC 147 70 - 199 mg/dL Blood 07/27/2024 5:11 PM CDT 07/27/2024 5:11 PM CDT Russ Pride MD LAB POCT ORDERABLES - DEVICE Final Result Performing Organization Address [facility] de Phone Number [facility] [place] [address] * POCT glucose (07/27/2024 3:57 PM CDT) Glucose, POC 186 70 - 199 mg/dL Blood 07/27/2024 3:57 PM CDT 07/27/2024 3:57 PM CDT Russ Pride MD LAB POCT ORDERABLES - DEVICE Final Result Performing Organization Address City/[facility] Co de Phone Number [facility] [place] [address] * POCT glucose (07/27/2024 2:45 PM CDT) Glucose, POC 175 70 - 199 mg/dL Blood 07/27/2024 2:45 PM CDT 07/27/2024 2:45 PM CDT Russ Pride MD LAB POCT ORDERABLES - DEVICE Final Result Performing Organization Address [facility] de Phone Number [facility] [place] [address] * TRANSESOPHAGEAL ECHO (GT) W DOPPLER/CF WO CONTRAST (07/27/2024 2:24 PM CDT) Anatomical Region Laterality Modality Echocardiography 07/27/2024 11:1 5 AM CDT Narrative 07/27/2024 4:25 PM CDT Patient name: Lei Rodriguez Date of test: 07/27/2024 Date of : 1960 (F) [facility] #: 0 ?Location: [facility] Cardiac Diagnostic Lab Interpreted by: Hernan Phelps MD Statistics Teacher: Russel Workman MD RN: Reason for Test: [...] 2=Hypo 3=Akinetic 4=Dyskin. 5=Aneurysm 0=Not visualized) Short Okarche-Gastric:=2 S=2 I=2 P=2 L=2 A=2 Long Okarche-Gastric:BP=2 BA=2 MP=2 MA=2 AP=2 AA=2 Chamber Dimensions: RA: mildly increased LA: markedly increased RV: mildly dilated LV: moderately dilated LV function: Severe global left ventricular dysfunction. RV function: see Summary Pericardium: No pericardial effusion seen Diastolic function: not assessed Atrial Septum: Normal Wall Thickness: RV: Normal LV: Normal Sedation/Tolerance: ??Sedation: GT performed with intravenous conscious sedation. ??Meds Admin: [...] seen, Mild-moderate MR, severe TV regurgitation, Mild LA. ? GT Summary ? Russel Workman performed the GT probe placement with Hernan Phelps MD present. [...] - 16:25:20 by Hernan Phelps MD ?? Abrasive Sawyer: Russel Workman By signing this report, the attending arboreal scientist certifies that he or she has personally supervised and interpreted the echocardiogram and has reviewed and or edited and agrees with the written comments contained within the report. Procedure Note Hernan Phelps MD - 07/27/2024 Patient name: Lei Rodriguez Date of test: 07/27/2024 Date of : 1960 (F) Hospital #: 0 Location: [facility] Cardiac Diagnostic Lab Interpreted by: Hernan Phelps MD Statistics Teacher: Russel Workman MD RN: Reason for Test: [...] 2=Hypo 3=Akinetic 4=Dyskin. 5=Aneurysm 0=Not visualized) Short Okarche-Gastric:=2 S=2 I=2 P=2 L=2 A=2 Long Okarche-Gastric:BP=2 BA=2 MP=2 MA=2 AP=2 AA=2 Chamber Dimensions: RA: mildly increased LA: markedly increased RV: mildly dilated LV: moderately dilated LV function: Severe global left ventricular dysfunction. RV function: see Summary Pericardium: No pericardial effusion seen Diastolic function: not assessed Atrial Septum: Normal Wall Thickness: RV: Normal LV: Normal Sedation/Tolerance: Sedation: GT performed with intravenous conscious sedation. Meds Admin: [...] seen, Mild-moderate MR, severe TV regurgitation, Mild LA. GT Summary Russel Workman performed the GT probe placement with Hernan Phelps MD present. [...] 07/27/2024 - 16:25:20 by Hernan Phelps MD Abrasive Sawyer: Russel Workman By signing this report, the attending arboreal scientist certifies that he or she has personally supervised and interpreted the echocardiogram and has reviewed and or edited and agrees with the written comments contained within the report. us Russ Pride MD CV ECHO PROCEDURES Final Resu lt * (ABNORMAL) POCT glucose (07/27/2024 11:27 AM CDT) Glucose, POC 208(H) 70 - 199 mg/dL Blood 07/27/2024 11:2 7 AM CDT 07/27/2024 11:27 AM CDT Russ Pride MD LAB POCT ORDERABLES - DEVICE Final Result Performing Organization Address [facility] Co de Phone Number [facility] [place] [address] * (ABNORMAL) POCT glucose (07/27/2024 8:06 AM CDT) Glucose, POC 216(H) 70 - 199 mg/dL Blood 07/27/2024 8:06 AM CDT 07/27/2024 8:06 AM CDT Russ Pride MD LAB POCT ORDERABLES - DEVICE Final Result Performing Organization Address [facility] de Phone Number [facility] [place] [address] * (ABNORMAL) POCT glucose (07/26/2024 9:02 PM CDT) Glucose, POC 259(H) 70 - 199 mg/dL Blood 07/26/2024 9:02 PM CDT 07/26/2024 9:02 PM CDT Russ Pride MD LAB POCT ORDERABLES - DEVICE Final Result Performing Organization Address [facility] [facility] de Phone Number [facility] [address] * (ABNORMAL) POCT glucose (07/26/2024 4:31 PM CDT) Glucose, POC 332(H) 70 - 199 mg/dL Blood 07/26/2024 4:31 PM CDT 07/26/2024 4:31 PM CDT Russ Pride MD LAB POCT ORDERABLES - DEVICE Final Result Performing Organization Address [facility] Co de Phone Number [facility] [place] [address] * (ABNORMAL) POCT glucose (07/26/2024 4:22 PM CDT) Glucose, POC 344(H) 70 - 199 mg/dL Blood 07/26/2024 4:22 PM CDT 07/26/2024 4:22 PM CDT Russ Pride MD LAB POCT ORDERABLES - DEVICE Final Result Performing Organization Address [facility] de Phone Number [facility] [place] [address] * POCT glucose (07/26/2024 11:49 AM CDT) Glucose, POC 124 70 - 199 mg/dL Blood 07/26/2024 11:4 9 AM CDT 07/26/2024 11:49 AM CDT Russ Pride MD LAB POCT ORDERABLES - DEVICE Final Result Performing Organization Address [facility] de Phone Number [facility] [place] [address] * POCT glucose (07/26/2024 8:16 AM CDT) Glucose, POC 146 70 - 199 mg/dL Blood 07/26/2024 8:16 AM CDT 07/26/2024 8:16 AM CDT Russ Pride MD LAB POCT ORDERABLES - DEVICE Final Result Performing Organization Address [facility] Co de Phone Number [facility] [place] [address] * eGFR (07/25/2024 8:04 PM CDT) eGFR [...] LAB BLOOD ORDERABLES Ayanna vazquez Result [facility] One [facility] [place] [address] * Magnesium (07/25/2024 8:04 PM CDT) Magnesium 1.9 1.4 - 2.5 mg/dL Blood 07/25/2024 8:04 PM CDT 07/25/2024 8:54 PM CDT us Ynes Roman MD LAB BLOOD ORDERABLES Ayanna vazquez Result [facility] One [facility] Department [place] [address] * (ABNORMAL) Comprehensive metabolic panel (07/25/2024 8:04 PM CDT) [facility] Sodium 139 135 - 145 mmol/L Potassium, pl 3.8 3.3 - 4.9 mmol/L [facility] Chloride 99 97 - 110 mmol/L [facility] CO2 37(H) 22 - 32 mmol/L [facility] Anion gap 3 2 - 15 mmol/L [facility] BUN 14 6 - 25 mg/dL [facility] Creatinine 0.71 0.60 - 1.10 mg/dL [facility] Glucose 125 70 - 199 mg/dL [facility] Comment: Interpretive Data Fasting glucose >/= [...] Calcium 9.7 8.5 - 10.3 mg/dL [facility] Bilirubin, total 0.3 0.1 - 1.2 mg/dL [facility] Protein, pl 7.7 6.5 - 8.5 g/dL [facility] Albumin 3.4(L) 3.5 - 5.0 g/dL [facility] Alk phos 138(H) 40 - 130 Units/L [facility] ALT 13 7 - 45 Units/L [facility] AST 32 10 - 45 Units/L [facility] Blood 07/25/2024 8:04 PM CDT 07/25/2024 8:54 PM CDT Elvira Cooper MD LAB BLOOD ORDERABLES Ayanna l Result Performing Organization Address [facility] Co de Phone Number [facility] Department [place] [address] * (ABNORMAL) CBC without differential (07/25/2024 8:04 PM CDT) WBC 10.5(H) 3.8 - 9.9 K/cumm Hgb 12.7 11.9 - 15.5 g/dL [facility] Hct 38.0 35.6 - 45.5 % [facility] Plt 332 150 - 400 K/cumm [facility] MPV 9.4 9.1 - 12.3 fL [facility] RBC 3.92 3.90 - 5.20 M/cumm [facility] MCV 96.9(H) 81.3 - 96.4 fL [facility] MCH 32.4 27.1 - 33.3 pg [facility] MCHC 33.4 32.3 - 35.7 g/dL [facility] RDW CV 12.7 11.1 - 14.9 % [facility] RDW SD 44.7 35.7 - 48.1 fL [facility] NRBC abs 0.00 0.00 - 0.01 K/cumm [facility] Blood 07/25/2024 8:04 PM CDT 07/25/2024 8:53 PM CDT Elvira Cooper MD LAB BLOOD ORDERABLES Ayanna l Result Performing Organization Address City/[facility]/ZIP Co de Phone Number [facility] Department [place] [address] * POCT glucose (07/25/2024 8:00 PM CDT) Glucose, POC 124 70 - 199 mg/dL Blood 07/25/2024 8:00 PM CDT 07/25/2024 8:00 PM CDT Russ Pride MD LAB POCT ORDERABLES - DEVICE Final Result Performing Organization Address City/State/[facility] Co de Phone Number [facility] [place] [address] * (ABNORMAL) POCT glucose (07/25/2024 5:16 PM CDT) [facility] Signature Glucose, POC 244(H) 70 - 199 mg/dL Blood 07/25/2024 5:16 PM CDT 07/25/2024 5:16 PM CDT Russ Pride MD LAB POCT ORDERABLES - DEVICE Final Result Performing Organization Address [facility] de Phone Number [facility] [place] [address] * IR Follow Up Inpatient (07/25/2024 3:47 [...] patient for non-tunneled central venous catheter compared (vale) placement. HISTORY: 63-year-old female with endocarditis in [...] patient for non-tunneled central venous catheter compared (vale) placement. HISTORY: 63-year-old female with endocarditis in [...] * POCT glucose (07/25/2024 3:00 PM CDT) [facility] Signature Glucose, POC 104 70 - 199 mg/dL Blood 07/25/2024 3:00 PM CDT 07/25/2024 3:00 PM CDT Russ Pride MD LAB POCT ORDERABLES - DEVICE Final Result [facility] One [facility] Department [place] [address] * POCT glucose (07/25/2024 11:57 AM CDT) Glucose, POC 89 70 - 199 mg/dL Blood 07/25/2024 11:5 7 AM CDT 07/25/2024 11:57 AM CDT Russ Pride MD LAB POCT ORDERABLES - DEVICE Final Result Performing Organization Address [facility] Co de Phone Number [facility] Department [place] [address] * (ABNORMAL) POCT glucose (07/25/2024 8:25 AM CDT) Glucose, POC 215(H) 70 - 199 mg/dL Blood 07/25/2024 8:25 AM CDT 07/25/2024 8:25 AM CDT Russ Pride MD LAB POCT ORDERABLES - DEVICE Final Result Performing Organization Address [facility] de Phone Number [facility] Department [place] [address] * eGFR (07/24/2024 10:31 PM CDT) eGFR [...] ORDERABLES Ayanna l Result Performing Organization Address [facility] de Phone Number [facility] [place] [address] * (ABNORMAL) Protime-INR (07/24/2024 10:31 PM CDT) PT 13.2(H) 9.7 - 13.0 sec INR 1.22(H) 0.90 - 1.20 [facility] Comment: Interpretive data Oral anticoagulant therapeutic [...] ORDERABLES Final Re sult Performing Organization Address [facility] de Phone Number [facility] [place] [address] * Magnesium (07/24/2024 10:31 PM CDT) Magnesium 2.0 1.4 - 2.5 mg/dL Blood 07/24/2024 10:3 1 PM CDT 07/24/2024 10:50 PM CDT Ynes Roman MD LAB BLOOD ORDERABLES Ayanna vazquez Result [facility] One [facility] Department [place] [address] * (ABNORMAL) Comprehensive metabolic panel (07/24/2024 10:31 PM CDT) Pathologist [facility] Sodium 135 135 - 145 mmol/L Potassium, pl 4.3 3.3 - 4.9 mmol/L [facility] Chloride 98 97 - 110 mmol/L [facility] CO2 27 22 - 32 mmol/L [facility] Anion gap 10 2 - 15 mmol/L [facility] BUN 22 6 - 25 mg/dL [facility] Creatinine 0.84 0.60 - 1.10 mg/dL [facility] Glucose 297(H) 70 - 199 mg/dL [facility] Comment: Interpretive Data Fasting glucose >/= [...] 2022. Calcium 9.6 8.5 - 10.3 mg/dL [facility] Bilirubin, total 0.2 0.1 - 1.2 mg/dL [facility] Protein, pl 7.8 6.5 - 8.5 g/dL [facility] Albumin 3.6 3.5 - 5.0 g/dL [facility] Alk phos 175(H) 40 - 130 Units/L [facility] ALT 9 7 - 45 Units/L [facility] AST 27 10 - 45 Units/L [facility] Blood 07/24/2024 10:3 1 PM CDT 07/24/2024 10:50 PM CDT Elvira Cooper MD LAB BLOOD ORDERABLES Ayanna l Result Performing Organization Address City/[facility]/ZIP Co de Phone Number [facility] [place] [address] * (ABNORMAL) CBC without differential (07/24/2024 10:31 PM CDT) [facility] WBC 6.7 3.8 - 9.9 K/cumm Hgb 12.1 11.9 - 15.5 g/dL [facility] Hct 36.5 35.6 - 45.5 % [facility] Plt 333 150 - 400 K/cumm [facility] MPV 9.3 9.1 - 12.3 fL [facility] RBC 3.79(L) 3.90 - 5.20 M/cumm [facility] MCV 96.3 81.3 - 96.4 fL [facility] MCH 31.9 27.1 - 33.3 pg [facility] MCHC 33.2 32.3 - 35.7 g/dL [facility] RDW CV 13.0 11.1 - 14.9 % [facility] RDW SD 46.4 35.7 - 48.1 fL [facility] NRBC abs 0.00 0.00 - 0.01 K/cumm [facility] Blood 07/24/2024 10:3 1 PM CDT 07/24/2024 10:50 PM CDT Elvira Cooper MD LAB BLOOD ORDERABLES Ayanna l Result Performing Organization Address City/[facility]/ZIP Co de Phone Number [facility] [place] [address] * (ABNORMAL) POCT glucose (07/24/2024 11:15 AM CDT) [facility] Glucose, POC 329(H) 70 - 199 mg/dL Comment:Glu2: RN/MD Notified Glucose comment 1 Glu2: RN/MD Notified [facility] Blood 07/24/2024 11:1 5 AM CDT 07/24/2024 11:15 AM CDT Russ Pride MD LAB POCT ORDERABLES - DEVICE Final Result Performing Organization Address City/[facility] Co de Phone Number [facility] [place] [address] * (ABNORMAL) POCT glucose (07/24/2024 8:54 AM CDT) [facility] Glucose, POC 206(H) 70 - 199 mg/dL Blood 07/24/2024 8:54 AM CDT 07/24/2024 8:54 AM CDT Russ Pride MD LAB POCT ORDERABLES - DEVICE Final Result Performing Organization Address [facility] de Phone Number [facility] [place] [address] * (ABNORMAL) POCT glucose (07/24/2024 8:30 AM CDT) [facility] Glucose, POC 220(H) 70 - 199 mg/dL Blood 07/24/2024 8:30 AM CDT 07/24/2024 8:30 AM CDT Russ Pride MD LAB POCT ORDERABLES - DEVICE Final Result Performing Organization Address [facility] de Phone Number [facility] [address] * eGFR (07/23/2024 8:40 PM CDT) [facility] eGFR 60 >=60 mL/min/1. 73 m2 Comment: [...] ORDERABLES Ayanna l Result Performing Organization Address [facility] Co de Phone Number [facility] Department [place] [address] * Magnesium (07/23/2024 8:40 PM CDT) Magnesium 1.9 1.4 - 2.5 mg/dL Blood 07/23/2024 8:40 PM CDT 07/23/2024 9:17 PM CDT us Ynes Roman MD LAB BLOOD ORDERABLES Ayanna l Result Performing Organization Address City/[facility] Co de Phone Number [facility] One [facility] Department [place] [address] * (ABNORMAL) Comprehensive metabolic panel (07/23/2024 8:40 PM CDT) Sodium 136 135 - 145 mmol/L Potassium, pl 4.2 3.3 - 4.9 mmol/L [facility] Chloride 98 97 - 110 mmol/L [facility] CO2 27 22 - 32 mmol/L [facility] Anion gap 11 2 - 15 mmol/L [facility] BUN 25 6 - 25 mg/dL [facility] Creatinine 1.05 0.60 - 1.10 mg/dL [facility] Glucose 218(H) 70 - 199 mg/dL [facility] Comment: Interpretive Data Fasting glucose >/= [...] 2022. Calcium 9.0 8.5 - 10.3 mg/dL [facility] Bilirubin, total 0.2 0.1 - 1.2 mg/dL [facility] Protein, pl 7.4 6.5 - 8.5 g/dL [facility] Albumin 3.3(L) 3.5 - 5.0 g/dL [facility] Alk phos 151(H) 40 - 130 Units/L [facility] ALT 12 7 - 45 Units/L [facility] AST 33 10 - 45 Units/L [facility] Blood 07/23/2024 8:40 PM CDT 07/23/2024 9:17 PM CDT us Elvira Cooper MD LAB BLOOD ORDERABLES Ayanna vazquez Result [facility] Department [place] [address] * (ABNORMAL) CBC without differential (07/23/2024 8:40 PM CDT) [facility] WBC 5.4 3.8 - 9.9 K/cumm Hgb 11.6(L) 11.9 - 15.5 g/dL [facility] Hct 36.1 35.6 - 45.5 % [facility] Plt 319 150 - 400 K/cumm [facility] MPV 9.5 9.1 - 12.3 fL [facility] RBC 3.63(L) 3.90 - 5.20 M/cumm [facility] MCV 99.4(H) 81.3 - 96.4 fL [facility] MCH 32.0 27.1 - 33.3 pg [facility] MCHC 32.1(L) 32.3 - 35.7 g/dL [facility] RDW CV 13.2 11.1 - 14.9 % [facility] RDW SD 48.3(H) 35.7 - 48.1 fL [facility] NRBC abs 0.00 0.00 - 0.01 K/cumm [facility] Blood 07/23/2024 8:40 PM CDT 07/23/2024 9:18 PM CDT us Elvira Cooper MD LAB BLOOD ORDERABLES Ayanna l Result [facility] Department [place] [address] * (ABNORMAL) POCT glucose (07/23/2024 8:24 PM CDT) Pathologist [facility] Glucose, POC 248(H) 70 - 199 mg/dL Blood 07/23/2024 8:24 PM CDT 07/23/2024 8:24 PM CDT us Russ Pried MD LAB POCT ORDERABLES - DEVICE Final Result Performing Organization Address [facility] Co de Phone Number [facility] [place] [address] * (ABNORMAL) POCT glucose (07/23/2024 5:45 PM CDT) Glucose, POC 251(H) 70 - 199 mg/dL Blood 07/23/2024 5:45 PM CDT 07/23/2024 5:45 PM CDT Russ Pride MD LAB POCT ORDERABLES - DEVICE Final Result Performing Organization Address [facility] Co de Phone Number [facility] [place] [address] * (ABNORMAL) POCT glucose (07/23/2024 12:18 PM CDT) Glucose, POC 286(H) 70 - 199 mg/dL Blood 07/23/2024 12:1 8 PM CDT 07/23/2024 12:18 PM CDT Russ Pride MD LAB POCT ORDERABLES - DEVICE Final Result Performing Organization Address [facility] de Phone Number [facility] [place] [address] * PET/CT FDG Skull to Thigh (07/23/2024 [...] FDG-PET/CT IMAGING DATE OF STUDY: ??07/23/2024 SCANNER: [facility] N Pusher Vision (NV1). ??This is a high-resolution scanner, [...] obtained. ??The study was interpreted on the [employer] workstation. ??The mean liver SUV (reported for senior data quality analyst purposes) is 3.0. ??For evaluation of sarcoidosis, [...] FDG-PET/CT IMAGING DATE OF STUDY: 07/23/2024 SCANNER: [facility] N PET Vision (NV1). This is a high-resolution scanner, which [...] obtained. The study was interpreted on the [employer] workstation. The mean liver SUV (reported for senior data quality analyst purposes) is 3.0. For evaluation of sarcoidosis, [...] 5:02 PM CDT 07/22/2024 5:02 PM CDT us Russ Pride MD LAB POCT ORDERABLES - DEVICE Final Result [facility] One [facility] [place] [address] * POCT glucose (07/22/2024 3:46 PM CDT) Glucose, POC 76 70 - 199 mg/dL Blood 07/22/2024 3:46 PM CDT 07/22/2024 3:46 PM CDT Russ Pride MD LAB POCT ORDERABLES - DEVICE Final Result Performing Organization Address [facility] de Phone Number [facility] [place] [address] * (ABNORMAL) POCT glucose (07/22/2024 12:16 PM CDT) Glucose, POC 312(H) 70 - 199 mg/dL Blood 07/22/2024 12:1 6 PM CDT 07/22/2024 12:16 PM CDT Russ Pride MD LAB POCT ORDERABLES - DEVICE Final Result Performing Organization Address [facility] de Phone Number [facility] [place] [address] * (ABNORMAL) POCT glucose (07/22/2024 8:41 AM CDT) Glucose, POC 239(H) 70 - 199 mg/dL Blood 07/22/2024 8:41 AM CDT 07/22/2024 8:41 AM CDT Russ Pride MD LAB POCT ORDERABLES - DEVICE Final Result Performing Organization Address [facility] de Phone Number [facility] [address] * (ABNORMAL) POCT glucose (07/21/2024 8:40 PM CDT) Glucose, POC 235(H) 70 - 199 mg/dL Blood 07/21/2024 8:40 PM CDT 07/21/2024 8:40 PM CDT Russ Pride MD LAB POCT ORDERABLES - DEVICE Final Result Performing Organization Address [facility]/ZIP Co de Phone Number [facility] [place] [address] * (ABNORMAL) POCT glucose (07/21/2024 5:12 PM CDT) Glucose, POC 214(H) 70 - 199 mg/dL Blood 07/21/2024 5:12 PM CDT 07/21/2024 5:12 PM CDT Russ Pride MD LAB POCT ORDERABLES - DEVICE Final Result Performing Organization Address [facility] [place] [address] * POCT glucose (07/21/2024 3:02 PM CDT) Glucose, POC 113 70 - 199 mg/dL Blood 07/21/2024 3:02 PM CDT 07/21/2024 3:02 PM CDT Russ Pride MD LAB POCT ORDERABLES - DEVICE Final Result Performing Organization Address [facility] Co de Phone Number [facility] [place] [address] * (ABNORMAL) POCT glucose (07/21/2024 2:14 PM CDT) Glucose, POC 55(L) 70 - 199 mg/dL Blood 07/21/2024 2:14 PM CDT 07/21/2024 2:14 PM CDT Russ Pride MD LAB POCT ORDERABLES - DEVICE Final Result Performing Organization Address [facility] Co de Phone Number [facility] [place] [address] * POCT glucose (07/21/2024 12:11 PM CDT) Glucose, POC 156 70 - 199 mg/dL Blood 07/21/2024 12:1 1 PM CDT 07/21/2024 12:11 PM CDT Russ Pride MD LAB POCT ORDERABLES - DEVICE Final Result Performing Organization Address [facility] de Phone Number [facility] Department [place] [address] * POCT glucose (07/21/2024 9:15 AM CDT) Glucose, POC 186 70 - 199 mg/dL Blood 07/21/2024 9:15 AM CDT 07/21/2024 9:15 AM CDT Russ Pride MD LAB POCT ORDERABLES - DEVICE Final Result Performing Organization Address [facility] de Phone Number [facility] [place] [address] * eGFR (07/20/2024 8:23 PM CDT) Pathologist [facility] eGFR 69 >=60 mL/min/1. 73 m2 Comment: [...] ORDERABLES Ayanna l Result Performing Organization Address City/[facility]/ZIP Co de Phone Number [facility] [place] [address] * Magnesium (07/20/2024 8:23 PM CDT) Pathologist [facility] Magnesium 2.1 1.4 - 2.5 mg/dL Blood 07/20/2024 8:23 PM CDT 07/20/2024 8:50 PM CDT us Ynes Roman MD LAB BLOOD ORDERABLES Ayanna l Result Performing Organization Address City/[facility]/ZIP Co de Phone Number [facility] [place] [address] * (ABNORMAL) Comprehensive metabolic panel (07/20/2024 8:23 PM CDT) Sodium 139 135 - 145 mmol/L Potassium, pl 4.5 3.3 - 4.9 mmol/L [facility] Chloride 101 97 - 110 mmol/L [facility] CO2 27 22 - 32 mmol/L [facility] Anion gap 11 2 - 15 mmol/L [facility] BUN 22 6 - 25 mg/dL [facility] Creatinine 0.94 0.60 - 1.10 mg/dL [facility] Glucose 159 70 - 199 mg/dL [facility] Comment: Interpretive Data Fasting glucose >/= [...] 2022. Calcium 9.8 8.5 - 10.3 mg/dL [facility] Bilirubin, total 0.2 0.1 - 1.2 mg/dL [facility] Protein, pl 7.5 6.5 - 8.5 g/dL [facility] Albumin 3.4(L) 3.5 - 5.0 g/dL [facility] Alk phos 155(H) 40 - 130 Units/L [facility] ALT 7 7 - 45 Units/L [facility] AST 29 10 - 45 Units/L [facility] Blood 07/20/2024 8:23 PM CDT 07/20/2024 8:50 PM CDT us Elvira Cooper MD LAB BLOOD ORDERABLES Ayanna vazquez Result [facility] One [facility] Department [place] [address] * (ABNORMAL) CBC without differential (07/20/2024 8:23 PM CDT) [facility] WBC 5.1 3.8 - 9.9 K/cumm Hgb 11.2(L) 11.9 - 15.5 g/dL [facility] Hct 34.8(L) 35.6 - 45.5 % [facility] Plt 279 150 - 400 K/cumm [facility] MPV 9.7 9.1 - 12.3 fL [facility] RBC 3.49(L) 3.90 - 5.20 M/cumm [facility] MCV 99.7(H) 81.3 - 96.4 fL [facility] MCH 32.1 27.1 - 33.3 pg [facility] MCHC 32.2(L) 32.3 - 35.7 g/dL [facility] RDW CV 13.6 11.1 - 14.9 % [facility] RDW SD 49.9(H) 35.7 - 48.1 fL [facility] NRBC abs 0.00 0.00 - 0.01 K/cumm [facility] Blood 07/20/2024 8:23 PM CDT 07/20/2024 8:50 PM CDT Elvira Cooper MD LAB BLOOD ORDERABLES Ayanna l Result Performing Organization Address City/[facility] Co de Phone Number [facility] [place] [address] * POCT glucose (07/20/2024 7:44 PM CDT) Glucose, POC 165 70 - 199 mg/dL Blood 07/20/2024 7:44 PM CDT 07/20/2024 7:44 PM CDT us Ynes Roman MD LAB POCT ORDERABLES - DEV ICE Final Result Performing Organization Address [facility] Co de Phone Number [facility] [place] [address] * POCT glucose (07/20/2024 5:55 PM CDT) Glucose, POC 92 70 - 199 mg/dL Blood 07/20/2024 5:55 PM CDT 07/20/2024 5:55 PM CDT Ynes Roman MD LAB POCT ORDERABLES - DEV ICE Final Result Performing Organization Address [facility] Co de Phone Number [facility] Department [place] [address] * POCT glucose (07/20/2024 12:08 PM CDT) Glucose, POC 173 70 - 199 mg/dL Blood 07/20/2024 12:0 8 PM CDT 07/20/2024 12:08 PM CDT us Ynes Roman MD LAB POCT ORDERABLES - DEV ICE Final Result [facility] [place] [address] * POCT glucose (07/20/2024 8:19 AM CDT) Glucose, POC 170 70 - 199 mg/dL Blood 07/20/2024 8:19 AM CDT 07/20/2024 8:19 AM CDT us Ynes Roman MD LAB POCT ORDERABLES - DEV ICE Final Result Performing Organization Address [facility] [place] [address] * (ABNORMAL) Urinalysis, microscopic only (07/20/2024 7:06 AM CDT) Pathologist [facility] WBC, ur 0-5 0 - 5 /HPF RBC, ur 0-2 0 - 2 /HPF [facility] Epithelial cells, squamous, ur 1-5 0 - 5 /HPF [facility] Epithelial cells, transitional, ur 1-5 0 - 0 /HPF [facility] Bacteria, ur 1+(A) [facility] Culture Reflex Comment Reflex conditions for urine culture (WBC >10) not met. [facility] Urine, clean voided 07/20/2024 7:06 AM CDT 07/20/2024 8:11 AM CDT us Ynes Roman MD LAB URINE ORDERABLES Ayanna l Result [facility] [place] [address] * (ABNORMAL) Urinalysis reflex to microscopic and culture Urine, clean voided (07/20/2024 7:06 AM CDT) Color, ur Straw Yellow Clarity, ur Clear Clear [facility] Specific gravity, ur 1.008 1.003 - 1.030 [facility] pH, urine 7.0 [facility] Comment: Interpretive Data ? Urine pH is affected by diet, medications, systemic acid-base disturbances, and renal tubular function. ??pH may affect urinary stone formation. ??For example, urine pH below 6.0 may help reduce the tendency for calcium phosphate stones and pH greater than 6.0 may reduce the tendency for uric acid stone formation. Source: [facility] Current Interpretive Data was last revised on 2017 Protein, ur ql Negative Negative [facility] Glucose, ur ql Trace(A) Negative [facility] Ketones, ur Negative Negative [facility] Bilirubin, ur Negative Negative [facility] Blood, ur 1+(A) Negative [facility] Urobilinogen, ur <2.0 <2.0 mg/dL [facility] Nitrite, ur Negative Negative [facility] Leukocyte esterase, ur Negative Negative [facility] UA reflex comment Reflex to microscopic UA will be performed. [facility] Urine, clean voided 07/20/2024 7:06 AM CDT 07/20/2024 8:11 AM CDT Ynes Roman MD LAB MICROBIOLOGY - GENERA L ORDERABLES Final Result Performing Organization Address City/[facility]/ZIP Co de Phone Number OLAMIDE ALEXANDER [facility] Department [place] [address] * (ABNORMAL) eGFR (07/19/2024 9:57 PM CDT) [...] ORDERABLES Ayanna l Result Performing Organization Address City/State/ZIP Co ne Phone Number [facility] Department [place] [address] * Magnesium (07/19/2024 9:57 PM CDT) Magnesium 2.2 1.4 - 2.5 mg/dL Blood 07/19/2024 9:57 PM CDT 07/19/2024 10:29 PM CDT us Ynes Roman MD LAB BLOOD ORDERABLES Ayanna l Result [facility] Department [place] [address] * (ABNORMAL) Comprehensive metabolic panel (07/19/2024 9:57 PM CDT) Sodium 138 135 - 145 mmol/L Potassium, pl 5.0(H) 3.3 - 4.9 mmol/L [facility] Comment:Hemolyzed; Potassium value may be falsely elevated by as much as 0.3-0.5 mmol/L. Suggest redraw and reanalysis. Chloride 98 97 - 110 mmol/L [facility] CO2 29 22 - 32 mmol/L [facility] Anion gap 11 2 - 15 mmol/L [facility] BUN 25 6 - 25 mg/dL [facility] Creatinine 1.09 0.60 - 1.10 mg/dL [facility] Glucose 192 70 - 199 mg/dL [facility] Comment: Interpretive Data Fasting glucose >/= [...] 2022. Calcium 9.3 8.5 - 10.3 mg/dL [facility] Bilirubin, total 0.2 0.1 - 1.2 mg/dL [facility] Protein, pl 7.2 6.5 - 8.5 g/dL [facility] Albumin 3.1(L) 3.5 - 5.0 g/dL [facility] Alk phos 154(H) 40 - 130 Units/L [facility] ALT 7 7 - 45 Units/L [facility] AST 33 10 - 45 Units/L [facility] Comment:Hemolyzed; result ma y be falsely elevated Blood 07/19/2024 9:57 PM CDT 07/19/2024 10:29 PM CDT Elvira Cooper MD LAB BLOOD ORDERABLES Ayanna george Result Performing Organization Address [facility]/State/ZIP Co de Phone Number [facility] Department [place] [address] * (ABNORMAL) CBC without differential (07/19/2024 9:57 PM CDT) Pathologist [facility] WBC 4.7 3.8 - 9.9 K/cumm Hgb 10.6(L) 11.9 - 15.5 g/dL [facility] Hct 33.5(L) 35.6 - 45.5 % [facility] Plt 259 150 - 400 K/cumm [facility] MPV 9.7 9.1 - 12.3 fL [facility] RBC 3.31(L) 3.90 - 5.20 M/cumm [facility] MCV 101.2(H) 81.3 - 96.4 fL [facility] MCH 32.0 27.1 - 33.3 pg [facility] MCHC 31.6(L) 32.3 - 35.7 g/dL [facility] RDW CV 13.8 11.1 - 14.9 % [facility] RDW SD 51.0(H) 35.7 - 48.1 fL [facility] NRBC abs 0.00 0.00 - 0.01 K/cumm [facility] Blood 07/19/2024 9:57 PM CDT 07/19/2024 10:30 PM CDT Elvira Cooper MD LAB BLOOD ORDERABLES Ayanna vazquez Result [facility] Department [place] [address] * (ABNORMAL) POCT glucose (07/19/2024 9:49 PM CDT) Glucose, POC 207(H) 70 - 199 mg/dL Blood 07/19/2024 9:49 PM CDT 07/19/2024 9:49 PM CDT us Ynes Roman MD LAB POCT ORDERABLES - DEV ICE Final Result Performing Organization Address [facility] de Phone Number [facility] [place] [address] * POCT glucose (07/19/2024 5:03 PM CDT) Glucose, POC 133 70 - 199 mg/dL Blood 07/19/2024 5:03 PM CDT 07/19/2024 5:03 PM CDT us Ynes Roman MD LAB POCT ORDERABLES - DEV ICE Final Result Performing Organization Address [facility] Phone Number [facility] [place] [address] * Urea nitrogen, urine, random (07/19/2024 12:59 PM CDT) Urea nitrogen, ur 374 mg/dL Comment: Interpretive Data No reference range established. Current interpretive data was last revised 2019. Urine 07/19/2024 12:5 9 PM CDT 07/19/2024 1:46 PM CDT Ynes Roman MD LAB URINE ORDERABLES Ayanna l Result Performing Organization Address [facility] de Phone Number [facility] [address] * Sodium, urine, random (07/19/2024 12:59 PM CDT) Sodium, ur 85 mmol/L Comment: Interpretive Data No reference range established. Current interpretive data was last revised 2019. Urine 07/19/2024 12:5 9 PM CDT 07/19/2024 1:46 PM CDT us Ynes Roman MD LAB URINE ORDERABLES Ayanna l Result Performing Organization Address [facility] Co de Phone Number [facility] [place] [address] * Creatinine, urine, random (07/19/2024 12:59 PM CDT) Creatinine Ur 70.4 mg/dL Comment: Interpretive Data No reference range established. Current interpretive data was last revised 2019. Urine 07/19/2024 12:5 9 PM CDT 07/19/2024 1:46 PM CDT Ynes Roman MD LAB URINE ORDERABLES Ayanna l Result Performing Organization Address [facility] de Phone Number [facility] Department [place] [address] * (ABNORMAL) POCT glucose (07/19/2024 12:48 PM CDT) Glucose, POC 222(H) 70 - 199 mg/dL Blood 07/19/2024 12:4 8 PM CDT 07/19/2024 12:48 PM CDT Ynes Roman MD LAB POCT ORDERABLES - DEV ICE Final Result Performing Organization Address City/[facility] Co de Phone Number [facility] [place] [address] * POCT glucose (07/19/2024 12:11 PM CDT) Glucose, POC 179 70 - 199 mg/dL Blood 07/19/2024 12:1 1 PM CDT 07/19/2024 12:11 PM CDT Ynes Roman MD LAB POCT ORDERABLES - DEV ICE Final Result Performing Organization Address [facility]/ZIP Co de Phone Number [facility] Department [place] [address] * (ABNORMAL) CBC with auto differential (07/18/2024 9:07 PM CDT) Pathologist [facility] WBC 5.3 3.8 - 9.9 K/cumm Hgb 11.4(L) 11.9 - 15.5 g/dL [facility] Hct 35.5(L) 35.6 - 45.5 % [facility] Plt 257 150 - 400 K/cumm [facility] MPV 9.8 9.1 - 12.3 fL [facility] RBC 3.50(L) 3.90 - 5.20 M/cumm [facility] MCV 101.4(H) 81.3 - 96.4 fL [facility] MCH 32.6 27.1 - 33.3 pg [facility] MCHC 32.1(L) 32.3 - 35.7 g/dL [facility] RDW CV 13.8 11.1 - 14.9 % [facility] RDW SD 51.6(H) 35.7 - 48.1 fL [facility] NRBC abs 0.00 0.00 - 0.01 K/cumm [facility] Blood 07/18/2024 9:07 PM CDT 07/18/2024 9:54 PM CDT us Ynes Roman MD LAB BLOOD ORDERABLES Ayanna l Result [facility] Department [place] [address] * Differential, auto (07/18/2024 9:07 PM CDT) Neutrophil abs 3.5 1.5 - 6.5 K/cumm Imm gran abs 0.1 0.0 - 0.1 K/cumm [facility] Lymphocyte abs 1.0 0.8 - 3.3 K/cumm [facility] Monocyte abs 0.7 0.2 - 0.8 K/cumm [facility] Eosinophil abs 0.2 0.0 - 0.5 K/cumm [facility] Basophil abs 0.1 0.0 - 0.1 K/cumm [facility] Neutrophil pct 63.5 % [facility] Comment: Interpretive Data Percent cell count reference ranges are not reported, since discordance with absolute values may lead to misinterpretation of CBC data. Current Interpretive Data was last revised on 2018. Imm gran pct 1.5 % [facility] Comment: Interpretive Data Percent cell count reference ranges are not reported, since discordance with absolute values may lead to misinterpretation of CBC data. Current Interpretive Data was last revised on 2018. Lymphocyte pct 18.2 % [facility] Comment: Interpretive Data Percent cell count reference ranges are not reported, since discordance with absolute values may lead to misinterpretation of CBC data. Current Interpretive Data was last revised on 2018. Monocyte pct 12.2 % [facility] Comment: Interpretive Data Percent cell count reference ranges are not reported, since discordance with absolute values may lead to misinterpretation of CBC data. Current Interpretive Data was last revised on 2018. Eosinophil pct 3.5 % [facility] Comment: Interpretive Data Percent cell count reference ranges are not reported, since discordance with absolute values may lead to misinterpretation of CBC data. Current Interpretive Data was last revised on 2018. Basophil pct 1.1 % [facility] Comment: Interpretive Data Percent cell count reference ranges are not reported, since discordance with absolute values may lead to misinterpretation of CBC data. Current Interpretive Data was last revised on 2018. Blood 07/18/2024 9:07 PM CDT 07/18/2024 9:54 PM CDT us Ynes Roman MD LAB BLOOD ORDERABLES Ayanna vazquez Result [facility] Department [place] [address] * (ABNORMAL) eGFR (07/18/2024 9:07 PM CDT) [...] LAB BLOOD ORDERABLES Ayanna vazquez Result OLAMIDE [facility] Department [place] [address] * Magnesium (07/18/2024 9:07 PM CDT) Magnesium 2.0 1.4 - 2.5 mg/dL Blood 07/18/2024 9:07 PM CDT 07/18/2024 9:49 PM CDT us Ynes Roman MD LAB BLOOD ORDERABLES Ayanna vazquez Result [facility] Department [place] [address] * (ABNORMAL) Comprehensive metabolic panel (07/18/2024 9:07 PM CDT) Sodium 131(L) 135 - 145 mmol/L Potassium, pl 4.5 3.3 - 4.9 mmol/L [facility] Chloride 95(L) 97 - 110 mmol/L [facility] CO2 28 22 - 32 mmol/L [facility] Anion gap 8 2 - 15 mmol/L [facility] BUN 26(H) 6 - 25 mg/dL [facility] Creatinine 1.66(H) 0.60 - 1.10 mg/dL [facility] Glucose 251(H) 70 - 199 mg/dL [facility] Comment: Interpretive Data Fasting glucose >/= [...] Calcium 9.6 8.5 - 10.3 mg/dL [facility] Bilirubin, total 0.3 0.1 - 1.2 mg/dL [facility] Protein, pl 7.8 6.5 - 8.5 g/dL [facility] Albumin 3.5 3.5 - 5.0 g/dL [facility] Alk phos 165(H) 40 - 130 Units/L [facility] ALT 9 7 - 45 Units/L [facility] AST 30 10 - 45 Units/L [facility] Blood 07/18/2024 9:07 PM CDT 07/18/2024 9:49 PM CDT Elvira Cooper MD LAB BLOOD ORDERABLES Ayanna vazquez Result Performing Organization Address [facility] Co de Phone Number [facility] Department [place] [address] * (ABNORMAL) CBC without differential (07/18/2024 9:07 PM CDT) [facility] WBC 5.3 3.8 - 9.9 K/cumm Hgb 11.4(L) 11.9 - 15.5 g/dL [facility] Hct 35.5(L) 35.6 - 45.5 % [facility] Plt 257 150 - 400 K/cumm [facility] MPV 9.8 9.1 - 12.3 fL [facility] RBC 3.50(L) 3.90 - 5.20 M/cumm [facility] MCV 101.4(H) 81.3 - 96.4 fL [facility] MCH 32.6 27.1 - 33.3 pg [facility] MCHC 32.1(L) 32.3 - 35.7 g/dL [facility] RDW CV 13.8 11.1 - 14.9 % [facility] RDW SD 51.6(H) 35.7 - 48.1 fL [facility] NRBC abs 0.00 0.00 - 0.01 K/cumm [facility] Blood 07/18/2024 9:07 PM CDT 07/18/2024 9:50 PM CDT Elvira Cooper MD LAB BLOOD ORDERABLES Ayanna vazquez Result Performing Organization Address City/[facility]/ZIP Co de Phone Number [facility] Department [place] [address] * (ABNORMAL) POCT glucose (07/18/2024 8:17 PM CDT) Glucose, POC 304(H) 70 - 199 mg/dL Blood 07/18/2024 8:17 PM CDT 07/18/2024 8:17 PM CDT us Ynes Roman MD LAB POCT ORDERABLES - DEV ICE Final Result Performing Organization Address [facility] Co de Phone Number [facility] [address] * (ABNORMAL) POCT glucose (07/18/2024 5:16 PM CDT) Glucose, POC 378(H) 70 - 199 mg/dL Blood 07/18/2024 5:16 PM CDT 07/18/2024 5:16 PM CDT Ynes Roman MD LAB POCT ORDERABLES - DEV ICE Final Result Performing Organization Address [facility] de Phone Number [facility] [place] [address] * (ABNORMAL) POCT glucose (07/18/2024 11:41 AM CDT) Glucose, POC 205(H) 70 - 199 mg/dL Blood 07/18/2024 11:4 1 AM CDT 07/18/2024 11:41 AM CDT Ynes Roman MD LAB POCT ORDERABLES - DEV ICE Final Result Performing Organization Address [facility] Co de Phone Number [facility] [place] [address] * (ABNORMAL) POCT glucose (07/18/2024 8:17 AM CDT) Glucose, POC 215(H) 70 - 199 mg/dL Blood 07/18/2024 8:17 AM CDT 07/18/2024 8:17 AM CDT us Ynes Roman MD LAB POCT ORDERABLES - DEV ICE Final Result Performing Organization Address [facility] de Phone Number [facility] Department [place] [address] * eGFR (07/17/2024 9:17 PM CDT) eGFR [...] ORDERABLES Ayanna l Result Performing Organization Address [facility] Co de Phone Number [facility] Department [place] [address] * Magnesium (07/17/2024 9:17 PM CDT) [facility] Magnesium 1.8 1.4 - 2.5 mg/dL Blood 07/17/2024 9:17 PM CDT 07/17/2024 10:06 PM CDT Ynes Roman MD LAB BLOOD ORDERABLES Ayanna george Result [facility] Department [place] [address] * (ABNORMAL) Comprehensive metabolic panel (07/17/2024 9:17 PM CDT) [facility] Sodium 133(L) 135 - 145 mmol/L Potassium, pl 3.9 3.3 - 4.9 mmol/L [facility] Chloride 95(L) 97 - 110 mmol/L [facility] CO2 31 22 - 32 mmol/L [facility] Anion gap 7 2 - 15 mmol/L [facility] BUN 19 6 - 25 mg/dL [facility] Creatinine 0.89 0.60 - 1.10 mg/dL [facility] Glucose 298(H) 70 - 199 mg/dL [facility] Comment: Interpretive Data Fasting glucose >/= [...] 2022. Calcium 9.1 8.5 - 10.3 mg/dL [facility] Bilirubin, total 0.3 0.1 - 1.2 mg/dL [facility] Protein, pl 7.2 6.5 - 8.5 g/dL [facility] Albumin 3.2(L) 3.5 - 5.0 g/dL [facility] Alk phos 138(H) 40 - 130 Units/L [facility] ALT 6(L) 7 - 45 Units/L [facility] AST 19 10 - 45 Units/L [facility] Blood 07/17/2024 9:17 PM CDT 07/17/2024 10:06 PM CDT Elvira Cooper MD LAB BLOOD ORDERABLES Ayanna l Result [facility] Department [place] [address] * (ABNORMAL) CBC without differential (07/17/2024 9:17 PM CDT) WBC 4.5 3.8 - 9.9 K/cumm Hgb 11.1(L) 11.9 - 15.5 g/dL [facility] Hct 34.5(L) 35.6 - 45.5 % [facility] Plt 228 150 - 400 K/cumm [facility] MPV 10.0 9.1 - 12.3 fL [facility] RBC 3.48(L) 3.90 - 5.20 M/cumm [facility] MCV 99.1(H) 81.3 - 96.4 fL [facility] MCH 31.9 27.1 - 33.3 pg [facility] MCHC 32.2(L) 32.3 - 35.7 g/dL [facility] RDW CV 13.9 11.1 - 14.9 % [facility] RDW SD 50.4(H) 35.7 - 48.1 fL [facility] NRBC abs 0.00 0.00 - 0.01 K/cumm [facility] Blood 07/17/2024 9:17 PM CDT 07/17/2024 10:09 PM CDT Elvira Cooper MD LAB BLOOD ORDERABLES Ayanna l Result Performing Organization Address [facility] Co de Phone Number [facility] [place] [address] * (ABNORMAL) POCT glucose (07/17/2024 9:04 PM CDT) Glucose, POC 311(H) 70 - 199 mg/dL Blood 07/17/2024 9:04 PM CDT 07/17/2024 9:04 PM CDT us Ynes Roman MD LAB POCT ORDERABLES - DEV ICE Final Result Performing Organization Address [facility] Co de Phone Number [facility] [place] [address] * POCT glucose (07/17/2024 4:48 PM CDT) Glucose, POC 155 70 - 199 mg/dL Blood 07/17/2024 4:48 PM CDT 07/17/2024 4:48 PM CDT us Ynes Roman MD LAB POCT ORDERABLES - DEV ICE Final Result Performing Organization Address [facility] [place] [address] * NM MPI SPECT Single Study (Rest) for Sarcoidosis (07/17/2024 4:31 PM CDT) Anatomical Region Laterality Modality Body N/A Nuclear Medicine 07/17/2024 5:40 PM CDT Impressions 07/17/2024 5:40 PM CDT 1. ??Normal rest myocardial perfusion. 2. ??Mild left ventricular dilation and severe global hypokinesis. LVEF about 21%. Please see separate FDG PET report for evaluation of inflammation. (s)Yoanna Guerin ??also participated in the interpretation of [...] FDG PET report for evaluation of inflammation. (juan)Yoanna Guerin also participated in the interpretation of this examination. Electronically signed by: Bernardino Walker M.D. us Ynes Roman MD IMG NM PROCEDURES Final R esult * (ABNORMAL) POCT glucose (07/17/2024 11:27 AM CDT) Glucose, POC 233(H) 70 - 199 mg/dL Blood 07/17/2024 11:2 7 AM CDT 07/17/2024 11:27 AM CDT us Ynes Roman MD LAB POCT ORDERABLES - DEV ICE Final Result Performing Organization Address [facility] Co de Phone Number [facility] [place] [address] * POCT glucose (07/17/2024 7:45 AM CDT) [facility] Glucose, POC 184 70 - 199 mg/dL Blood 07/17/2024 7:45 AM CDT 07/17/2024 7:45 AM CDT us Ynes Roman MD LAB POCT ORDERABLES - DEV ICE Final Result Performing Organization Address [facility] Co de Phone Number [facility] Department [place] [address] * (ABNORMAL) CBC with auto differential (07/16/2024 9:13 PM CDT) [facility] WBC 5.6 3.8 - 9.9 K/cumm Hgb 11.0(L) 11.9 - 15.5 g/dL [facility] Hct 33.4(L) 35.6 - 45.5 % [facility] Plt 219 150 - 400 K/cumm [facility] MPV 9.9 9.1 - 12.3 fL [facility] RBC 3.35(L) 3.90 - 5.20 M/cumm [facility] MCV 99.7(H) 81.3 - 96.4 fL [facility] MCH 32.8 27.1 - 33.3 pg [facility] MCHC 32.9 32.3 - 35.7 g/dL [facility] RDW CV 13.9 11.1 - 14.9 % [facility] RDW SD 50.5(H) 35.7 - 48.1 fL [facility] NRBC abs 0.00 0.00 - 0.01 K/cumm [facility] Blood 07/16/2024 9:13 PM CDT 07/16/2024 9:50 PM CDT Ynes Roman MD LAB BLOOD ORDERABLES Ayanna vazquez Result [facility] One [facility] [facility] Department [place] [address] * Differential, auto (07/16/2024 9:13 PM CDT) Neutrophil abs 3.5 1.5 - 6.5 K/cumm Imm gran abs 0.0 0.0 - 0.1 K/cumm [facility] Lymphocyte abs 1.1 0.8 - 3.3 K/cumm [facility] Monocyte abs 0.7 0.2 - 0.8 K/cumm [facility] Eosinophil abs 0.1 0.0 - 0.5 K/cumm [facility] Basophil abs 0.1 0.0 - 0.1 K/cumm [facility] Neutrophil pct 64.0 % [facility] Comment: Interpretive Data Percent cell count reference ranges are not reported, since discordance with absolute values may lead to misinterpretation of CBC data. Current Interpretive Data was last revised on 2018. Imm gran pct 0.5 % [facility] Comment: Interpretive Data Percent cell count reference ranges are not reported, since discordance with absolute values may lead to misinterpretation of CBC data. Current Interpretive Data was last revised on 2018. Lymphocyte pct 19.2 % [facility] Comment: Interpretive Data Percent cell count reference ranges are not reported, since discordance with absolute values may lead to misinterpretation of CBC data. Current Interpretive Data was last revised on 2018. Monocyte pct 12.9 % [facility] Comment: Interpretive Data Percent cell count reference ranges are not reported, since discordance with absolute values may lead to misinterpretation of CBC data. Current Interpretive Data was last revised on 2018. Eosinophil pct 2.5 % [facility] Comment: Interpretive Data Percent cell count reference ranges are not reported, since discordance with absolute values may lead to misinterpretation of CBC data. Current Interpretive Data was last revised on 2018. Basophil pct 0.9 % [facility] Comment: Interpretive Data Percent cell count reference ranges are not reported, since discordance with absolute values may lead to misinterpretation of CBC data. Current Interpretive Data was last revised on 2018. Blood 07/16/2024 9:13 PM CDT 07/16/2024 9:50 PM CDT us Ynes Roman MD LAB BLOOD ORDERABLES Ayanna vazquez Result [facility] Department [place] [address] * eGFR (07/16/2024 9:13 PM CDT) eGFR [...] ORDERABLES Ayanna l Result Performing Organization Address City/[facility]/ZIP Co de Phone Number [facility] [place] [address] * Magnesium (07/16/2024 9:13 PM CDT) Pathologist [facility] Magnesium 2.0 1.4 - 2.5 mg/dL Blood 07/16/2024 9:13 PM CDT 07/16/2024 9:48 PM CDT Ynes Roman MD LAB BLOOD ORDERABLES Ayanna l Result Performing Organization Address City/[facility]/ZIP Co de Phone Number [facility] Department [place] [address] * (ABNORMAL) Comprehensive metabolic panel (07/16/2024 9:13 PM CDT) Sodium 134(L) 135 - 145 mmol/L Potassium, pl 4.0 3.3 - 4.9 mmol/L [facility] Chloride 93(L) 97 - 110 mmol/L [facility] CO2 33(H) 22 - 32 mmol/L [facility] Anion gap 8 2 - 15 mmol/L [facility] BUN 17 6 - 25 mg/dL [facility] Creatinine 1.01 0.60 - 1.10 mg/dL [facility] Glucose 106 70 - 199 mg/dL [facility] Comment: Interpretive Data Fasting glucose >/= [...] 2022. Calcium 9.5 8.5 - 10.3 mg/dL [facility] Bilirubin, total 0.3 0.1 - 1.2 mg/dL [facility] Protein, pl 7.3 6.5 - 8.5 g/dL [facility] Albumin 3.2(L) 3.5 - 5.0 g/dL [facility] Alk phos 148(H) 40 - 130 Units/L [facility] ALT 5(L) 7 - 45 Units/L [facility] AST 24 10 - 45 Units/L [facility] Blood 07/16/2024 9:13 PM CDT 07/16/2024 9:48 PM CDT us Elvira Cooper MD LAB BLOOD ORDERABLES Ayanna vazquez Result [facility] [place] [address] * (ABNORMAL) CBC without differential (07/16/2024 9:13 PM CDT) [facility] WBC 5.6 3.8 - 9.9 K/cumm Hgb 11.0(L) 11.9 - 15.5 g/dL [facility] Hct 33.4(L) 35.6 - 45.5 % [facility] Plt 219 150 - 400 K/cumm [facility] MPV 9.9 9.1 - 12.3 fL [facility] RBC 3.35(L) 3.90 - 5.20 M/cumm [facility] MCV 99.7(H) 81.3 - 96.4 fL [facility] MCH 32.8 27.1 - 33.3 pg [facility] MCHC 32.9 32.3 - 35.7 g/dL [facility] RDW CV 13.9 11.1 - 14.9 % [facility] RDW SD 50.5(H) 35.7 - 48.1 fL [facility] NRBC abs 0.00 0.00 - 0.01 K/cumm [facility] Blood 07/16/2024 9:13 PM CDT 07/16/2024 9:47 PM CDT Elvira Cooper MD LAB BLOOD ORDERABLES Ayanna l Result Performing Organization Address City/[facility]/ZIP Co de Phone Number [facility] Department [place] [address] * POCT glucose (07/16/2024 8:06 PM CDT) Glucose, POC 86 70 - 199 mg/dL Blood 07/16/2024 8:06 PM CDT 07/16/2024 8:06 PM CDT Ynes Roman MD LAB POCT ORDERABLES - DEV ICE Final Result [facility] [place] [address] * POCT glucose (07/16/2024 4:23 PM CDT) Glucose, POC 100 70 - 199 mg/dL Blood 07/16/2024 4:23 PM CDT 07/16/2024 4:23 PM CDT Ynes Roman MD LAB POCT ORDERABLES - DEV ICE Final Result [facility] Department [place] [address] * CTA Heart and Coronary Arteries W [...] PM Electronically signed by: Isabel Eisenberg M.D. Ynes Roman MD IM CT PROCEDURES Final R esult * (ABNORMAL) POCT glucose (07/16/2024 11:00 AM CDT) Glucose, POC 200(H) 70 - 199 mg/dL Blood 07/16/2024 11:0 0 AM CDT 07/16/2024 11:00 AM CDT Ynes Roman MD LAB POCT ORDERABLES - DEV ICE Final Result Performing Organization Address [facility] de Phone Number [facility] [place] [address] * POCT glucose (07/16/2024 7:42 AM CDT) Glucose, POC 137 70 - 199 mg/dL Blood 07/16/2024 7:42 AM CDT 07/16/2024 7:42 AM CDT Ynes Roman MD LAB POCT ORDERABLES - DEV ICE Final Result Performing Organization Address [facility] de Phone Number [facility] [place] [address] * Potassium, whole blood (07/16/2024 2:15 AM CDT) Potassium, bld 4.1 3.3 - 4.9 mmol/L Blood 07/16/2024 2:15 AM CDT 07/16/2024 3:57 AM CDT Ynes Roman MD LAB BLOOD ORDERABLES Ayanna l Result Performing Organization Address [facility] de Phone Number [facility] [place] [address] * eGFR (07/15/2024 10:22 PM CDT) eGFR [...] PM CDT 07/15/2024 11:27 PM CDT us Elvira Cooper MD LAB BLOOD ORDERABLES Ayanna l Result Performing Organization Address City/[facility]/ZIP Co de Phone Number [facility] [place] [address] * Magnesium (07/15/2024 10:22 PM CDT) Magnesium 1.8 1.4 - 2.5 mg/dL Blood 07/15/2024 10:2 2 PM CDT 07/15/2024 11:27 PM CDT us Ynes Roman MD LAB BLOOD ORDERABLES Ayanna l Result [facility] [place] [address] * (ABNORMAL) Comprehensive metabolic panel (07/15/2024 10:22 PM CDT) Sodium 137 135 - 145 mmol/L Potassium, pl See Comment 3.3 - 4.9 mmol/L [facility] Comment:Credited; Hemolyzed Specimen Chloride 97 97 - 110 mmol/L [facility] CO2 31 22 - 32 mmol/L [facility] Anion gap 9 2 - 15 mmol/L [facility] BUN 20 6 - 25 mg/dL [facility] Creatinine 0.77 0.60 - 1.10 mg/dL [facility] Glucose 119 70 - 199 mg/dL [facility] Comment: Interpretive Data Fasting glucose >/= [...] 2022. Calcium 9.5 8.5 - 10.3 mg/dL [facility] Bilirubin, total 0.3 0.1 - 1.2 mg/dL [facility] Protein, pl 7.5 6.5 - 8.5 g/dL [facility] Albumin 3.3(L) 3.5 - 5.0 g/dL [facility] Alk phos 143(H) 40 - 130 Units/L [facility] Comment:Hemolyzed; result ma y be falsely decreased ALT See Comment 7 - 45 Units/L [facility] Comment:Credited; Hemolyzed Specimen AST See Comment 10 - 45 Units/L [facility] Comment:Credited; Hemolyzed Specimen Blood 07/15/2024 10:2 2 PM CDT 07/15/2024 11:27 PM CDT us Elvira Cooper MD LAB BLOOD ORDERABLES Ayanna vazquez Result [facility] Department [place] [address] * (ABNORMAL) CBC without differential (07/15/2024 10:22 PM CDT) [facility] WBC 6.5 3.8 - 9.9 K/cumm Hgb 11.0(L) 11.9 - 15.5 g/dL [facility] Hct 33.6(L) 35.6 - 45.5 % [facility] Plt 233 150 - 400 K/cumm [facility] MPV 10.5 9.1 - 12.3 fL [facility] RBC 3.37(L) 3.90 - 5.20 M/cumm [facility] MCV 99.7(H) 81.3 - 96.4 fL [facility] MCH 32.6 27.1 - 33.3 pg [facility] MCHC 32.7 32.3 - 35.7 g/dL [facility] RDW CV 14.3 11.1 - 14.9 % [facility] RDW SD 52.1(H) 35.7 - 48.1 fL [facility] NRBC abs 0.00 0.00 - 0.01 K/cumm [facility] Blood 07/15/2024 10:2 2 PM CDT 07/15/2024 11:27 PM CDT Elvira Cooper MD LAB BLOOD ORDERABLES Ayanna l Result Performing Organization Address City/[facility]/ZIP Co de Phone Number [facility] [place] [address] * POCT glucose (07/15/2024 7:47 PM CDT) [facility] Glucose, POC 147 70 - 199 mg/dL Blood 07/15/2024 7:47 PM CDT 07/15/2024 7:47 PM CDT us Ynes Roman MD LAB POCT ORDERABLES - DEV ICE Final Result Performing Organization Address City/[facility]/ZIP Co de Phone Number [facility] [place] [address] * POCT glucose (07/15/2024 4:08 PM CDT) Glucose, POC 103 70 - 199 mg/dL Blood 07/15/2024 4:08 PM CDT 07/15/2024 4:08 PM CDT us Ynes Roman MD LAB POCT ORDERABLES - DEV ICE Final Result Performing Organization Address City/[facility] [place] [address] * (ABNORMAL) POCT glucose (07/15/2024 11:10 AM CDT) Glucose, POC 221(H) 70 - 199 mg/dL Blood 07/15/2024 11:1 0 AM CDT 07/15/2024 11:10 AM CDT us Ynes Roman MD LAB POCT ORDERABLES - DEV ICE Final Result Performing Organization Address [facility] [place] [address] * POCT glucose (07/15/2024 8:48 AM CDT) Glucose, POC 160 70 - 199 mg/dL Blood 07/15/2024 8:48 AM CDT 07/15/2024 8:48 AM CDT Ynes Roman MD LAB POCT ORDERABLES - DEV ICE Final Result Performing Organization Address [facility] [place] [address] * POCT glucose (07/15/2024 8:07 AM CDT) Glucose, POC 173 70 - 199 mg/dL Blood 07/15/2024 8:07 AM CDT 07/15/2024 8:07 AM CDT us Ynes Roman MD LAB POCT ORDERABLES - DEV ICE Final Result [facility] Department [place] [address] * (ABNORMAL) Comprehensive metabolic panel (07/14/2024 9:36 PM CDT) Sodium 140 135 - 145 mmol/L Potassium, pl 3.9 3.3 - 4.9 mmol/L [facility] Chloride 100 97 - 110 mmol/L [facility] CO2 34(H) 22 - 32 mmol/L [facility] Anion gap 6 2 - 15 mmol/L [facility] BUN 18 6 - 25 mg/dL [facility] Creatinine 0.80 0.60 - 1.10 mg/dL [facility] Glucose 85 70 - 199 mg/dL [facility] Comment: Interpretive Data Fasting glucose >/= [...] 2022. Calcium 9.7 8.5 - 10.3 mg/dL [facility] Bilirubin, total 0.3 0.1 - 1.2 mg/dL [facility] Protein, pl 7.5 6.5 - 8.5 g/dL [facility] Albumin 3.4(L) 3.5 - 5.0 g/dL [facility] Alk phos 156(H) 40 - 130 Units/L [facility] ALT 6(L) 7 - 45 Units/L [facility] AST 23 10 - 45 Units/L [facility] Blood 07/14/2024 9:36 PM CDT 07/14/2024 10:48 PM CDT us Ynes Roman MD LAB BLOOD ORDERABLES Ayanna l Result [facility] Department [place] [address] * eGFR (07/14/2024 9:36 PM CDT) eGFR [...] PM CDT 07/14/2024 10:51 PM CDT us nYes Roman MD LAB BLOOD ORDERABLES Ayanna l Result Performing Organization Address City/[facility] Co de Phone Number [facility] [place] [address] * Magnesium (07/14/2024 9:36 PM CDT) Magnesium 1.9 1.4 - 2.5 mg/dL Blood 07/14/2024 9:36 PM CDT 07/14/2024 10:48 PM CDT Ynes Roman MD LAB BLOOD ORDERABLES Ayanna l Result Performing Organization Address [facility] Co de Phone Number [facility] [place] [address] * Bilirubin, direct (07/14/2024 9:36 PM CDT) Bilirubin, direct <0.2 0.1 - 0.3 mg/dL Blood 07/14/2024 9:36 PM CDT 07/14/2024 10:48 PM CDT Elvira Cooper MD LAB BLOOD ORDERABLES Ayanna l Result Performing Organization Address [facility] Co de Phone Number [facility] Department [place] [address] * Creatinine (07/14/2024 9:36 PM CDT) Creatinine 0.80 0.60 - 1.10 mg/dL Blood 07/14/2024 9:36 PM CDT 07/14/2024 10:48 PM CDT Narrative [facility] - 07/14/2024 11:23 PM CDT Baseline prior to rivaroxaban initiation Ynes Roman MD LAB BLOOD ORDERABLES Ayanna l Result Performing Organization Address City/[facility]/ZIP Co de Phone Number [facility] Department [place] [address] * (ABNORMAL) CBC without differential (07/14/2024 9:36 PM CDT) [facility] WBC 6.7 3.8 - 9.9 K/cumm Hgb 11.2(L) 11.9 - 15.5 g/dL [facility] Hct 34.2(L) 35.6 - 45.5 % [facility] Plt 230 150 - 400 K/cumm [facility] MPV 9.7 9.1 - 12.3 fL [facility] RBC 3.43(L) 3.90 - 5.20 M/cumm [facility] MCV 99.7(H) 81.3 - 96.4 fL [facility] MCH 32.7 27.1 - 33.3 pg [facility] MCHC 32.7 32.3 - 35.7 g/dL [facility] RDW CV 14.1 11.1 - 14.9 % [facility] RDW SD 51.3(H) 35.7 - 48.1 fL [facility] NRBC abs 0.00 0.00 - 0.01 K/cumm [facility] Blood 07/14/2024 9:36 PM CDT 07/14/2024 10:51 PM CDT us Elvira Cooper MD LAB BLOOD ORDERABLES Ayanna l Result [facility] Department [place] [address] * POCT glucose (07/14/2024 8:26 PM CDT) [facility] Glucose, POC 100 70 - 199 mg/dL Blood 07/14/2024 8:26 PM CDT 07/14/2024 8:26 PM CDT us Ynes Roman MD LAB POCT ORDERABLES - DEV ICE Final Result [facility] Department [place] [address] * POCT glucose (07/14/2024 4:14 PM CDT) Glucose, POC 184 70 - 199 mg/dL Blood 07/14/2024 4:14 PM CDT 07/14/2024 4:14 PM CDT us Ynes Roman MD LAB POCT ORDERABLES - DEV ICE Final Result [facility] Department [place] [address] * XR Chest 1 View (07/14/2024 3:00 [...] IMG XR PROCEDURES Final R esult * Protime-INR (07/14/2024 11:54 AM CDT) PT 12.1 9.7 - 13.0 sec INR 1.12 0.90 - 1.20 [facility] Comment: Interpretive data Oral anticoagulant therapeutic ranges: Venous thromboembolism prophylaxis or treatment: 2.0-3.0 CARDIOLOGY Standard range: 2.0-3.0 High-intensity range: 2.5-3.5 Refer to indication-specific guidelines for appropriate target ranges for prosthetic heart valve replacement. Current interpretive data was last revised on 2019. Blood 07/14/2024 11:5 4 AM CDT 07/14/2024 1:27 PM CDT us Ynes Roman MD LAB BLOOD ORDERABLES Ayanna l Result [facility] Department [place] [address] * (ABNORMAL) aPTT (07/14/2024 11:54 AM CDT) aPTT 27(L) 28 - 38 sec Comment: Interpretive Data Heparin therapeutic range: 66.0 - 100.0 seconds. Range based on correlation with therapeutic heparin activity range of 0.3 - 0.7 Units/mL. Current interpretive data was last revised on 2023. Blood 07/14/2024 11:5 4 AM CDT 07/14/2024 1:27 PM CDT Narrative [facility] - 07/14/2024 1:58 PM CDT STAT PTT [...] ORDERABLES Ayanna l Result Performing Organization Address [facility] Co de Phone Number [facility] [place] [address] * (ABNORMAL) POCT glucose (07/14/2024 11:26 AM CDT) Glucose, POC 310(H) 70 - 199 mg/dL Blood 07/14/2024 11:2 6 AM CDT 07/14/2024 11:26 AM CDT Ynes Roman MD LAB POCT ORDERABLES - DEV ICE Final Result Performing Organization Address [facility] de Phone Number [facility] [place] [address] * (ABNORMAL) POCT glucose (07/14/2024 8:18 AM CDT) Glucose, POC 331(H) 70 - 199 mg/dL Blood 07/14/2024 8:18 AM CDT 07/14/2024 8:18 AM CDT Ynes Roman MD LAB POCT ORDERABLES - DEV ICE Final Result Performing Organization Address [facility] de Phone Number [facility] [place] [address] * (ABNORMAL) POCT glucose (07/14/2024 8:17 AM CDT) Pathologist [facility] Glucose, POC 248(H) 70 - 199 mg/dL Blood 07/14/2024 8:17 AM CDT 07/14/2024 8:17 AM CDT us Ynes Roman MD LAB POCT ORDERABLES - DEV ICE Final Result Performing Organization Address [facility]/ZIP Co de Phone Number [facility] Department [place] [address] * (ABNORMAL) CBC without differential (07/13/2024 9:03 PM CDT) [facility] WBC 5.6 3.8 - 9.9 K/cumm Hgb 11.1(L) 11.9 - 15.5 g/dL [facility] Hct 35.5(L) 35.6 - 45.5 % [facility] Plt 242 150 - 400 K/cumm [facility] MPV 9.4 9.1 - 12.3 fL [facility] RBC 3.46(L) 3.90 - 5.20 M/cumm [facility] MCV 102.6(H) 81.3 - 96.4 fL [facility] MCH 32.1 27.1 - 33.3 pg [facility] MCHC 31.3(L) 32.3 - 35.7 g/dL [facility] RDW CV 14.2 11.1 - 14.9 % [facility] RDW SD 52.8(H) 35.7 - 48.1 fL [facility] NRBC abs 0.00 0.00 - 0.01 K/cumm [facility] Blood 07/13/2024 9:03 PM CDT 07/13/2024 9:47 PM CDT us Elvira Cooper MD LAB BLOOD ORDERABLES Ayanna l Result [facility] One [facility] Department [place] [address] * Magnesium (07/13/2024 9:00 PM CDT) Pathologist [facility] Magnesium 1.8 1.4 - 2.5 mg/dL Blood 07/13/2024 9:00 PM CDT 07/13/2024 9:45 PM CDT us Elvira Cooper MD LAB BLOOD ORDERABLES Ayanna vazquez Result [facility] Ed[facility] Department [place] [address] * eGFR (07/13/2024 9:00 PM CDT) Pathologist [facility] eGFR 83 >=60 mL/min/1. 73 m2 Comment: [...] MD LAB BLOOD ORDERABLES Ayanna vazquez Result [facility] One [facility] [place] [address] * (ABNORMAL) Comprehensive metabolic panel (07/13/2024 9:00 PM CDT) Sodium 137 135 - 145 mmol/L Potassium, pl 4.4 3.3 - 4.9 mmol/L [facility] Chloride 99 97 - 110 mmol/L [facility] CO2 30 22 - 32 mmol/L [facility] Anion gap 8 2 - 15 mmol/L [facility] BUN 13 6 - 25 mg/dL [facility] Creatinine 0.80 0.60 - 1.10 mg/dL [facility] Glucose 310(H) 70 - 199 mg/dL [facility] Comment: Interpretive Data Fasting glucose >/= [...] 2022. Calcium 9.4 8.5 - 10.3 mg/dL [facility] Bilirubin, total 0.3 0.1 - 1.2 mg/dL [facility] Protein, pl 7.6 6.5 - 8.5 g/dL [facility] Albumin 3.5 3.5 - 5.0 g/dL [facility] Alk phos 158(H) 40 - 130 Units/L [facility] ALT 12 7 - 45 Units/L [facility] AST 46(H) 10 - 45 Units/L [facility] Blood 07/13/2024 9:00 PM CDT 07/13/2024 9:45 PM CDT Elvira Cooper MD LAB BLOOD ORDERABLES Ayanna l Result Performing Organization Address City/[facility]/ZIP Co de Phone Number [facility] Department [place] [address] * POCT glucose (07/13/2024 7:58 PM CDT) Glucose, POC 186 70 - 199 mg/dL Blood 07/13/2024 7:58 PM CDT 07/13/2024 7:58 PM CDT Elvira Cooper MD LAB POCT ORDERABLES - DEV ICE Final Result Performing Organization Address [facility] de Phone Number [facility] Department [place] [address] * (ABNORMAL) Aerobic culture and gram stain Hardware Lead (07/13/2024 5:34 PM CDT) Pathologist [facility] Direct Specimen Exam Stain: Rare polymorphonuclear leukocytes seen. No organisms seen. Report Final Report: Few Staphylococcus aureus Methicillin susceptible (MSSA) by penicillin binding protein 2a (PBP2a) testing. This isolate is presumed to be resistant to clindamycin based on detection of inducible clindamycin resistance. Clindamycin may still be effective in some patients. (.) [facility] Organism STAPHYLOCOCCUS AUREUS [facility] Hardware (Lead) 07/13/2024 5 :34 PM CDT 07/13/2024 6:47 PM CDT Narrative [facility] - 07/18/2024 12:57 PM CDT Ventricular lead tip Testing performed by [facility] ([phone]) Specimens submitted from normally sterile body sites [...] L ORDERABLES Final Result Performing Organization Address City/[facility]/ZIP Co de Phone Number [facility] [place] [address] * Aerobic culture and gram stain Hardware Lead (07/13/2024 5:34 PM CDT) Direct Specimen Exam Stain: Few polymorphonuclear leukocytes seen. No organisms seen. Report Final Report: No growth [facility] Hardware (Lead) 07/13/2024 5 :34 PM CDT 07/13/2024 6:45 PM CDT Narrative [facility] - 07/18/2024 12:57 PM CDT Atrial lead tip Testing performed by [facility] Microbiology Laboratory ([phone]) Specimens submitted from normally sterile body sites [...] L ORDERABLES Final Result Performing Organization Address City/[facility]/ZIP Co de Phone Number [facility] Department [place] [address] * FL Fluoroscopy < 1 Hour (07/13/2024 5:30 PM CDT) Narrative [facility]ELIA_[facility] - 07/13/2024 5:31 PM CDT The images from this study are not interpreted by Radiology. ??Please refer to the physician's procedure / OR operative note. us Robin Watkins MD IMG FLUOROSCOPY PROC EDURES Final Result RAD_PACS_[facility] * (ABNORMAL) POC Blood Gas and Chemistries, Arterial - (07/13/2024 5:18 PM CDT) pH, Art POC 7.44 7.35 - 7.45 pCO2, Art POC 41 35 - 45 mmHg [facility] pO2, Art POC 265(H) 83 - 108 mmHg [facility] Na, POC 140 135 - 145 mmol/L [facility] K POC 3.4 3.3 - 4.9 mmol/L [facility] Comment: Interpretive Data Not all point of care methods assess for hemolysis. Confirm with instrument and retest K+ if not consistent with clinical signs and symptoms. Current Interpretive Data was last revised on 2024. Cl, POC 104 97 - 110 mmol/L [facility] Ionized Ca, POC 4.98 4.50 - 5.10 mg/dL [facility] Glucose, POC 82 70 - 199 mg/dL [facility] Lactate, POC 1.2 0.7 - 2.2 mmol/L [facility] SO2 (hugo) arterial 100(H) 90 - 95 % [facility] Base excess, POC 3.3 mmol/L [facility] HCO3, Art POC 28 20 - 30 mmol/L [facility] Hct, POC 33.0(L) 36.3 - 45.3 % [facility] Total Hb, POC 11.1(L) 11.9 - 15.5 g/dL [facility] Blood 07/13/2024 5:18 PM CDT 07/13/2024 5:18 PM CDT us Elvira Cooper MD LAB POCT ORDERABLES - DEV ICE Final Result Performing Organization Address [facility] Co de Phone Number [facility] Department [place] [address] * Prepare RBC: 2 Units (07/13/2024 4:37 PM CDT) Product code [id number] Unit Number [id number] [facility] Product Blood Type OPOS [facility] Dispense Status RETURNED [facility] Product code [id number] [facility] Unit Number [id number] 7-K [facility] Product Blood Type OPOS [facility] Dispense Status RETURNED [facility] Blood 07/13/2024 4:37 PM CDT 07/13/2024 4:37 PM CDT Narrative [facility] - 07/13/2024 6:38 PM CDT Are special requirements needed? (All products are leukoreduced and CMV- safe)- >No Date required:-[id number] LRRBC # of [id number] Reasons:-Intra-op transfusion} us Jolanta Abdi MD BLOOD BANK PRODUCT ORDERAB LES Final Result Performing Organization Address [facility] de Phone Number [facility] Department [place] [address] * GT Add-On For OR (07/13/2024 3:38 PM CDT) Narrative [facility] PROSOLV_CARDIOREPORT_CONS SCIMAGE - 07/13/2024 3:38 PM CDT Procedure Auto Finalized by Rule: VERN CV GT DURING CASE OR Please see the Anesthesiologist's Procedure Note for the results. us Jolanta Abdi MD CV ECHO PROCEDURES Final R esult Performing Organization Address [facility] Co de Phone Number [facility] PROSOLV_CARDIOREPORT_CONS SCIMAGE * Type and screen (07/13/2024 3:09 PM CDT) ABO Rh O Positive Marguerite, indirect Negative [facility] Blood 07/13/2024 3:09 PM CDT 07/13/2024 3:18 PM CDT Narrative [facility] - 07/13/2024 4:24 PM CDT Has the patient had Daratumumab or Isatuximab in the past 6 months?->Unknown Stepan Love MD LAB BLOOD BANK TEST ORDER DONATO Final Result Performing Organization Address City/[facility]/ZIP Co de Phone Number [facility] [place] [address] * POCT glucose (07/13/2024 3:01 PM CDT) Glucose, POC 70 70 - 199 mg/dL Blood 07/13/2024 3:01 PM CDT 07/13/2024 3:01 PM CDT Elvira Cooper MD LAB POCT ORDERABLES - DEV ICE Final Result Performing Organization Address City/[facility]/ZIP Co de Phone Number [facility] [place] [address] * POCT glucose (07/13/2024 11:45 AM CDT) Glucose, POC 108 70 - 199 mg/dL Blood 07/13/2024 11:4 5 AM CDT 07/13/2024 11:45 AM CDT Elvira Cooper MD LAB POCT ORDERABLES - DEV ICE Final Result Performing Organization Address City/[facility]/ZIP Co de Phone Number [facility] [place] [address] * POCT glucose (07/13/2024 8:00 AM CDT) Glucose, POC 144 70 - 199 mg/dL Blood 07/13/2024 8:00 AM CDT 07/13/2024 8:00 AM CDT us Elvira Cooper MD LAB POCT ORDERABLES - DEV ICE Final Result OLAMIDE [facility] Department [place] [address] * eGFR (07/13/2024 12:58 AM CDT) eGFR [...] 8 AM CDT 07/13/2024 5:14 AM CDT us Elvira Cooper MD LAB BLOOD ORDERABLES Ayanna l Result Performing Organization Address City/[facility] Co de Phone Number [facility] [place] [address] * (ABNORMAL) aPTT (07/13/2024 12:58 AM CDT) aPTT 60(H) 28 - 38 sec Comment: Interpretive Data Heparin therapeutic range: 66.0 - 100.0 seconds. Range based on correlation with therapeutic heparin activity range of 0.3 - 0.7 Units/mL. Current interpretive data was last revised on 2023. Blood 07/13/2024 12:5 8 AM CDT 07/13/2024 5:08 AM CDT Result [facility] Becca Wilcox MD LAB BLOOD ORDERABLES Final Result Performing Organization Address [facility] Co de Phone Number [facility] [place] [address] * (ABNORMAL) Comprehensive metabolic panel (07/13/2024 12:58 AM CDT) [facility] Sodium 136 135 - 145 mmol/L Potassium, pl 4.5 3.3 - 4.9 mmol/L [facility] Chloride 96(L) 97 - 110 mmol/L [facility] CO2 29 22 - 32 mmol/L [facility] Anion gap 11 2 - 15 mmol/L [facility] BUN 14 6 - 25 mg/dL [facility] Creatinine 0.81 0.60 - 1.10 mg/dL [facility] Glucose 199 70 - 199 mg/dL [facility] Comment: Interpretive Data Fasting glucose >/= [...] 2022. Calcium 9.6 8.5 - 10.3 mg/dL [facility] Bilirubin, total 0.3 0.1 - 1.2 mg/dL [facility] Protein, pl 7.5 6.5 - 8.5 g/dL [facility] Albumin 3.4(L) 3.5 - 5.0 g/dL [facility] Alk phos 147(H) 40 - 130 Units/L [facility] ALT 9 7 - 45 Units/L [facility] AST 30 10 - 45 Units/L [facility] Blood 07/13/2024 12:5 8 AM CDT 07/13/2024 4:34 AM CDT us Elvira Cooper MD LAB BLOOD ORDERABLES Ayanna vazquez Result [facility] Department [place] [address] * (ABNORMAL) CBC without differential (07/13/2024 12:58 AM CDT) WBC 5.0 3.8 - 9.9 K/cumm Hgb 10.7(L) 11.9 - 15.5 g/dL [facility] Hct 33.9(L) 35.6 - 45.5 % [facility] Plt 280 150 - 400 K/cumm [facility] MPV 10.5 9.1 - 12.3 fL [facility] RBC 3.35(L) 3.90 - 5.20 M/cumm [facility] MCV 101.2(H) 81.3 - 96.4 fL [facility] MCH 31.9 27.1 - 33.3 pg [facility] MCHC 31.6(L) 32.3 - 35.7 g/dL [facility] RDW CV 14.3 11.1 - 14.9 % [facility] RDW SD 53.1(H) 35.7 - 48.1 fL [facility] NRBC abs 0.00 0.00 - 0.01 K/cumm [facility] Blood 07/13/2024 12:5 8 AM CDT 07/13/2024 4:34 AM CDT Elvira Cooper MD LAB BLOOD ORDERABLES Ayanna l Result Performing Organization Address City/[facility] Co de Phone Number [facility] [place] [address] * (ABNORMAL) POCT glucose (07/12/2024 11:01 PM CDT) Glucose, POC 365(H) 70 - 199 mg/dL Blood 07/12/2024 11:0 1 PM CDT 07/12/2024 11:01 PM CDT Elvira Cooper MD LAB POCT ORDERABLES - DEV ICE Final Result Performing Organization Address [facility] Co de Phone Number [facility] [place] [address] * POCT glucose (07/12/2024 8:13 AM CDT) Glucose, POC 133 70 - 199 mg/dL Blood 07/12/2024 8:13 AM CDT 07/12/2024 8:13 AM CDT Elvira Cooper MD LAB POCT ORDERABLES - DEV ICE Final Result Performing Organization Address City/[facility] Co de Phone Number [facility] [place] [address] * (ABNORMAL) aPTT (07/12/2024 4:17 AM CDT) aPTT 133(H) 28 - 38 sec Comment: No clot detected in sample Repeated and verified - [id number] - 07/12/24, 5:57 AM Interpretive Data Heparin therapeutic range: 66.0 - 100.0 seconds. Range based on correlation with therapeutic heparin activity range of 0.3 - 0.7 Units/mL. Current interpretive data was last revised on 2023. Blood 07/12/2024 4:17 AM CDT 07/12/2024 5:30 AM CDT Narrative OLAMIDE [facility] - 07/12/2024 5:57 AM CDT STAT [...] ORDERABLES Ayanna l Result Performing Organization Address City/[facility]/ZIP Co de Phone Number [facility] [place] [address] * Magnesium (07/11/2024 9:19 PM CDT) [facility] Magnesium 1.8 1.4 - 2.5 mg/dL Blood 07/11/2024 9:19 PM CDT 07/11/2024 9:48 PM CDT us Lynn Martinez MD LAB BLOOD ORDERABLES Fin al Result [facility] [place] [address] * eGFR (07/11/2024 9:19 PM CDT) [facility] eGFR 70 >=60 mL/min/1. 73 m2 Comment: [...] MD LAB BLOOD ORDERABLES Ayanna vazquez Result [facility] Department [place] [address] * (ABNORMAL) aPTT (07/11/2024 9:19 PM CDT) aPTT 51(H) 28 - 38 sec Comment: Interpretive Data Heparin therapeutic range: 66.0 - 100.0 seconds. Range based on correlation with therapeutic heparin activity range of 0.3 - 0.7 Units/mL. Current interpretive data was last revised on 2023. Blood 07/11/2024 9:19 PM CDT 07/11/2024 9:56 PM CDT Narrative [facility] - 07/11/2024 10:06 PM CDT STAT [...] MD LAB BLOOD ORDERABLES Ayanna vazquez Result [facility] Department [place] [address] * (ABNORMAL) Comprehensive metabolic panel (07/11/2024 9:19 PM CDT) [facility] Signature Sodium 136 135 - 145 mmol/L Potassium, pl 3.9 3.3 - 4.9 mmol/L [facility] Chloride 100 97 - 110 mmol/L [facility] CO2 27 22 - 32 mmol/L [facility] Anion gap 9 2 - 15 mmol/L [facility] BUN 15 6 - 25 mg/dL [facility] Creatinine 0.92 0.60 - 1.10 mg/dL [facility] Glucose 124 70 - 199 mg/dL [facility] Comment: Interpretive Data Fasting glucose >/= [...] 2022. Calcium 9.1 8.5 - 10.3 mg/dL [facility] Bilirubin, total 0.3 0.1 - 1.2 mg/dL [facility] Protein, pl 7.2 6.5 - 8.5 g/dL [facility] Albumin 3.2(L) 3.5 - 5.0 g/dL [facility] Alk phos 155(H) 40 - 130 Units/L [facility] ALT 10 7 - 45 Units/L [facility] AST 24 10 - 45 Units/L [facility] Blood 07/11/2024 9:19 PM CDT 07/11/2024 9:48 PM CDT us Elvira Cooper MD LAB BLOOD ORDERABLES Ayanna vazquez Result [facility] Department [place] [address] * (ABNORMAL) CBC without differential (07/11/2024 9:19 PM CDT) WBC 4.7 3.8 - 9.9 K/cumm Hgb 10.3(L) 11.9 - 15.5 g/dL [facility] Hct 33.1(L) 35.6 - 45.5 % [facility] Plt 255 150 - 400 K/cumm [facility] MPV 9.5 9.1 - 12.3 fL [facility] RBC 3.20(L) 3.90 - 5.20 M/cumm [facility] MCV 103.4(H) 81.3 - 96.4 fL [facility] MCH 32.2 27.1 - 33.3 pg [facility] MCHC 31.1(L) 32.3 - 35.7 g/dL [facility] RDW CV 14.3 11.1 - 14.9 % [facility] RDW SD 54.3(H) 35.7 - 48.1 fL [facility] NRBC abs 0.00 0.00 - 0.01 K/cumm [facility] Blood 07/11/2024 9:19 PM CDT 07/11/2024 9:48 PM CDT Elvira Cooper MD LAB BLOOD ORDERABLES Ayanna l Result Performing Organization Address [facility] Co de Phone Number [facility] [place] [address] * POCT glucose (07/11/2024 8:31 PM CDT) Glucose, POC 181 70 - 199 mg/dL Blood 07/11/2024 8:31 PM CDT 07/11/2024 8:31 PM CDT Elvira Cooper MD LAB POCT ORDERABLES - DEV ICE Final Result Performing Organization Address [facility] Co de Phone Number [facility] [place] [address] * (ABNORMAL) POCT glucose (07/11/2024 5:14 PM CDT) Glucose, POC 209(H) 70 - 199 mg/dL Blood 07/11/2024 5:14 PM CDT 07/11/2024 5:14 PM CDT Elvira Cooper MD LAB POCT ORDERABLES - DEV ICE Final Result Performing Organization Address City/[facility] [place] [address] * XR Chest PA Lateral 2 Views [...] better characterized on recent CT. Dictated by: Meena Pagan MD The radiology attending physician has personally [...] better characterized on recent CT. Dictated by: Meena Pagan MD The radiology attending physician has personally [...] DEV ICE Final Result Performing Organization Address [facility] Co de Phone Number [facility] [place] [address] * (ABNORMAL) POCT glucose (07/11/2024 7:27 AM CDT) Pathologist [facility] Glucose, POC 238(H) 70 - 199 mg/dL Blood 07/11/2024 7:27 AM CDT 07/11/2024 7:27 AM CDT Elvira Cooper MD LAB POCT ORDERABLES - DEV ICE Final Result Performing Organization Address [facility] de Phone Number [facility] [place] [address] * Magnesium (07/10/2024 11:24 PM CDT) [facility] Magnesium 1.9 1.4 - 2.5 mg/dL Blood 07/10/2024 11:2 4 PM CDT 07/11/2024 12:11 AM CDT Elvira Cooper MD LAB BLOOD ORDERABLES Ayanna l Result Performing Organization Address [facility] Co de Phone Number [facility] [place] [address] * eGFR (07/10/2024 11:24 PM CDT) eGFR [...] MD LAB BLOOD ORDERABLES Ayanna vazquez Result [facility] Department [place] [address] * (ABNORMAL) aPTT (07/10/2024 11:24 PM CDT) Pathologist [facility] aPTT 84(H) 28 - 38 sec Comment: Interpretive Data Heparin therapeutic range: 66.0 - 100.0 seconds. Range based on correlation with therapeutic heparin activity range of 0.3 - 0.7 Units/mL. Current interpretive data was last revised on 2023. Blood 07/10/2024 11:2 4 PM CDT 07/10/2024 11:54 PM CDT us Elvira Cooper MD LAB BLOOD ORDERABLES Ayanna vazquez Result [facility] Department [place] [address] * (ABNORMAL) Comprehensive metabolic panel (07/10/2024 11:24 PM CDT) Sodium 134(L) 135 - 145 mmol/L Potassium, pl 4.7 3.3 - 4.9 mmol/L [facility] Chloride 99 97 - 110 mmol/L [facility] CO2 26 22 - 32 mmol/L [facility] Anion gap 9 2 - 15 mmol/L [facility] BUN 19 6 - 25 mg/dL [facility] Creatinine 0.94 0.60 - 1.10 mg/dL [facility] Glucose 351(H) 70 - 199 mg/dL [facility] Comment: Interpretive Data Fasting glucose >/= [...] 2022. Calcium 9.4 8.5 - 10.3 mg/dL [facility] Bilirubin, total 0.4 0.1 - 1.2 mg/dL [facility] Protein, pl 8.0 6.5 - 8.5 g/dL [facility] Albumin 3.6 3.5 - 5.0 g/dL [facility] Alk phos 176(H) 40 - 130 Units/L [facility] ALT 8 7 - 45 Units/L [facility] AST 28 10 - 45 Units/L [facility] Blood 07/10/2024 11:2 4 PM CDT 07/11/2024 12:11 AM CDT Elvira Cooper MD LAB BLOOD ORDERABLES Ayanna vazquez Result Performing Organization Address [facility] Co de Phone Number [facility] Department [place] [address] * (ABNORMAL) CBC without differential (07/10/2024 11:24 PM CDT) Pathologist [facility] WBC 5.9 3.8 - 9.9 K/cumm Hgb 11.3(L) 11.9 - 15.5 g/dL [facility] Hct 35.8 35.6 - 45.5 % [facility] Plt 352 150 - 400 K/cumm [facility] MPV 9.5 9.1 - 12.3 fL [facility] RBC 3.53(L) 3.90 - 5.20 M/cumm [facility] MCV 101.4(H) 81.3 - 96.4 fL [facility] MCH 32.0 27.1 - 33.3 pg [facility] MCHC 31.6(L) 32.3 - 35.7 g/dL [facility] RDW CV 14.6 11.1 - 14.9 % [facility] RDW SD 53.9(H) 35.7 - 48.1 fL [facility] NRBC abs 0.00 0.00 - 0.01 K/cumm [facility] Blood 07/10/2024 11:2 4 PM CDT 07/11/2024 12:10 AM CDT Elvira Cooper MD LAB BLOOD ORDERABLES Ayanna vazquez Result Performing Organization Address City/[facility]/ZIP Co de Phone Number [facility] Department [place] [address] * (ABNORMAL) aPTT (07/10/2024 4:59 PM CDT) [facility] aPTT 92(H) 28 - 38 sec Comment: Interpretive Data Heparin therapeutic range: 66.0 - 100.0 seconds. Range based on correlation with therapeutic heparin activity range of 0.3 - 0.7 Units/mL. Current interpretive data was last revised on 2023. Blood 07/10/2024 4:59 PM CDT 07/10/2024 5:30 PM CDT Narrative [facility] - 07/10/2024 5:38 PM CDT STAT PTT [...] MD LAB BLOOD ORDERABLES Ayanna l Result [facility] Department [place] [address] * (ABNORMAL) POCT glucose (07/10/2024 4:53 PM CDT) [facility] Glucose, POC 290(H) 70 - 199 mg/dL Blood 07/10/2024 4:53 PM CDT 07/10/2024 4:53 PM CDT Elvira Cooper MD LAB POCT ORDERABLES - DEV ICE Final Result Performing Organization Address [facility]/ZIP Co de Phone Number [facility] Department [place] [address] * Lipid panel (07/10/2024 2:21 PM CDT) [facility] Signature Cholesterol 180 30 - 199 mg/dL Comment: [...] on 2018. HDL 49 >=40 mg/dL [facility] Comment: Interpretive Data Ages < or = [...] 2018. LDL, calculated See Comment <=129 [facility] Comment: Unable to calculate Interpretive Data [...] revised on 2024. Non-HDL Cholesterol 131 mg/dL [facility] Comment: Interpretive Data Ages < or [...] last revised on 2018. Chol/HDL ratio 4 [facility] Blood 07/10/2024 2:21 PM CDT 07/10/2024 3:26 PM CDT Elvira Cooper MD LAB BLOOD ORDERABLES Edit ed Result - Final Performing Organization Address City/[facility] Co de Phone Number [facility] Department [place] [address] * (ABNORMAL) POCT glucose (07/10/2024 2:15 PM CDT) Glucose, POC 210(H) 70 - 199 mg/dL Blood 07/10/2024 2:15 PM CDT 07/10/2024 2:15 PM CDT Elvira Cooper MD LAB POCT ORDERABLES - DEV ICE Final Result Performing Organization Address City/[facility] Co de Phone Number [facility] Department [place] [address] * TRANSESOPHAGEAL ECHO (GT) W DOPPLER/CF WO CONTRAST (07/10/2024 12:29 PM CDT) Anatomical Region Laterality Modality Echocardiography 07/10/2024 10:0 0 AM CDT Narrative 07/10/2024 12:46 PM CDT Patient name: Lei Rodriguez Date of test: 07/10/2024 Date of : 1960 (F) Hospital #: 0 ?Location: [facility] Cardiac Diagnostic Lab Interpreted by: Da Ayala MD Statistics Teacher: Emily King MD RN: Reason for Test: [...] 2=Hypo 3=Akinetic 4=Dyskin. 5=Aneurysm 0=Not visualized) Short Okarche-Gastric:=2 S=2 I=2 P=2 L=2 A=2 Long Okarche-Gastric:BP=2 BA=2 MP=2 MA=2 AP=2 AA=2 Chamber Dimensions: RA: increased LA: increased, 5 cm RV: Normal LV: mildly dilated LV function: Moderate global left ventricular dysfunction. RV function: Normal Pericardium: No pericardial effusion seen Diastolic function: not assessed Atrial Septum: Normal Wall Thickness: RV: Normal LV: Normal Sedation/Tolerance: ??Sedation: GT performed with monitored anesthesia care ??Cuil Admin: ?propofol 490 mg ??Tolerance: Patient tolerated [...] MS, mild TV regurgitation, normal PV. ? GT Summary ? Emily King performed the GT probe placement with Da Ayala MD present. [...] - 12:46:57 by Da Ayala MD ?? Abrasive Sawyer: Emily King By signing this report, the attending arboreal scientist certifies that he or she has personally supervised and interpreted the echocardiogram and has reviewed and or edited and agrees with the written comments contained within the report. Procedure Note Da Ayala MD - 07/10/2024 Patient name: Lei Rodriguez Date of test: 07/10/2024 Date of : 1960 (F) Hospital #: 0 Location: [facility] Cardiac Diagnostic Lab Interpreted by: Da Ayala MD Statistics Teacher: Emily King MD RN: Reason for Test: [...] 2=Hypo 3=Akinetic 4=Dyskin. 5=Aneurysm 0=Not visualized) Short Okarche-Gastric:=2 S=2 I=2 P=2 L=2 A=2 Long Okarche-Gastric:BP=2 BA=2 MP=2 MA=2 AP=2 AA=2 Chamber Dimensions: RA: increased LA: increased, 5 cm RV: Normal LV: mildly dilated LV function: Moderate global left ventricular dysfunction. RV function: Normal Pericardium: No pericardial effusion seen Diastolic function: not assessed Atrial Septum: Normal Wall Thickness: RV: Normal LV: Normal Sedation/Tolerance: Sedation: GT performed with monitored anesthesia care Meds Admin: [...] no MS, mild TV regurgitation, normal PV. GT Summary Emily King performed the GT probe placement with Da Ayala MD present. [...] 07/10/2024 - 12:46:57 by Da Ayala MD Abrasive Sawyer: Emily Fernando By signing this report, the attending arboreal scientist certifies that he or she has personally supervised and interpreted the echocardiogram and has reviewed and or edited and agrees with the written comments contained within the report. Elvira Cooper MD CV ECHO PROCEDURES Final Result * POCT glucose (07/10/2024 9:49 AM CDT) Glucose, POC 142 70 - 199 mg/dL Blood 07/10/2024 9:49 AM CDT 07/10/2024 9:49 AM CDT Elvira Cooper MD LAB POCT ORDERABLES - DEV ICE Final Result [facility] One [facility] [place] [address] * POCT glucose (07/10/2024 7:45 AM CDT) Glucose, POC 144 70 - 199 mg/dL Blood 07/10/2024 7:45 AM CDT 07/10/2024 7:45 AM CDT Elvira Cooper MD LAB POCT ORDERABLES - DEV ICE Final Result Performing Organization Address [facility] Co de Phone Number [facility] [place] [address] * (ABNORMAL) aPTT (07/10/2024 6:43 AM CDT) aPTT 119(H) 28 - 38 sec Comment: Interpretive Data Heparin therapeutic range: 66.0 - 100.0 seconds. Range based on correlation with therapeutic heparin activity range of 0.3 - 0.7 Units/mL. Current interpretive data was last revised on 2023. Blood 07/10/2024 6:43 AM CDT 07/10/2024 7:21 AM CDT Narrative [facility] - 07/10/2024 7:53 AM CDT STAT PTT [...] ORDERABLES Ayanna l Result Performing Organization Address [facility]/ZIP Co de Phone Number OLAMIDE ALEXANDER [facility] [place] [address] * (ABNORMAL) Lipid panel (07/09/2024 11:48 PM [...] revised on 2018. HDL 40 >=40 mg/dL OLAMIDE MAURER Comment: Interpretive Data Ages < or = [...] on 2018. LDL, calculated 77 <=129 mg/dL OLAMIDE [facility] Comment: Interpretive Data Ages < or [...] revised on 2024. Non-HDL Cholesterol 104 mg/dL [facility] Comment: Interpretive Data Ages < or [...] last revised on 2018. Chol/HDL ratio 4 [facility] Blood 07/09/2024 11:4 8 PM CDT 07/10/2024 12:15 AM CDT us Elvira Cooper MD LAB BLOOD ORDERABLES Ayanna vazquez Result OLAMIDE [facility] Department [place] [address] * eGFR (07/09/2024 11:48 PM CDT) eGFR [...] ORDERABLES Ayanna vazquez Result Performing Organization Address City/[facility] Co de Phone Number [facility] Department [place] [address] * (ABNORMAL) aPTT (07/09/2024 11:48 PM CDT) aPTT 61(H) 28 - 38 sec Comment: Interpretive Data Heparin therapeutic range: 66.0 - 100.0 seconds. Range based on correlation with therapeutic heparin activity range of 0.3 - 0.7 Units/mL. Current interpretive data was last revised on 2023. Blood 07/09/2024 11:4 8 PM CDT 07/10/2024 12:15 AM CDT Elvira Cooper MD LAB BLOOD ORDERABLES Ayanna vazquez Result Performing Organization Address [facility] de Phone Number [facility] Department [place] [address] * (ABNORMAL) Comprehensive metabolic panel (07/09/2024 11:48 PM CDT) Pathologist [facility] Sodium 136 135 - 145 mmol/L Potassium, pl 3.5 3.3 - 4.9 mmol/L [facility] Chloride 99 97 - 110 mmol/L [facility] CO2 33(H) 22 - 32 mmol/L [facility] Anion gap 4 2 - 15 mmol/L [facility] BUN 16 6 - 25 mg/dL [facility] Creatinine 1.04 0.60 - 1.10 mg/dL [facility] Glucose 156 70 - 199 mg/dL [facility] Comment: Interpretive Data Fasting glucose >/= [...] 2022. Calcium 9.1 8.5 - 10.3 mg/dL [facility] Bilirubin, total 0.4 0.1 - 1.2 mg/dL [facility] Protein, pl 7.2 6.5 - 8.5 g/dL [facility] Albumin 3.3(L) 3.5 - 5.0 g/dL [facility] Alk phos 162(H) 40 - 130 Units/L [facility] ALT 6(L) 7 - 45 Units/L [facility] AST 26 10 - 45 Units/L [facility] Blood 07/09/2024 11:4 8 PM CDT 07/10/2024 12:15 AM CDT us Elvira Cooper MD LAB BLOOD ORDERABLES Ayanna vazquez Result [facility] Department [place] [address] * (ABNORMAL) CBC without differential (07/09/2024 11:48 PM CDT) WBC 7.6 3.8 - 9.9 K/cumm Hgb 10.8(L) 11.9 - 15.5 g/dL [facility] Hct 33.4(L) 35.6 - 45.5 % [facility] Plt 333 150 - 400 K/cumm [facility] MPV 9.8 9.1 - 12.3 fL [facility] RBC 3.30(L) 3.90 - 5.20 M/cumm [facility] MCV 101.2(H) 81.3 - 96.4 fL [facility] MCH 32.7 27.1 - 33.3 pg [facility] MCHC 32.3 32.3 - 35.7 g/dL [facility] RDW CV 14.2 11.1 - 14.9 % [facility] RDW SD 52.9(H) 35.7 - 48.1 fL [facility] NRBC abs 0.00 0.00 - 0.01 K/cumm [facility] Blood 07/09/2024 11:4 8 PM CDT 07/10/2024 12:15 AM CDT Elvira Cooper MD LAB BLOOD ORDERABLES Ayanna l Result [facility] [place] [address] * POCT glucose (07/09/2024 10:46 PM CDT) Glucose, POC 197 70 - 199 mg/dL Blood 07/09/2024 10:4 6 PM CDT 07/09/2024 10:46 PM CDT Elvira Cooper MD LAB POCT ORDERABLES - DEV ICE Final Result Performing Organization Address City/[facility] Co de Phone Number [facility] [place] [address] * (ABNORMAL) POCT glucose (07/09/2024 8:33 PM CDT) Glucose, POC 291(H) 70 - 199 mg/dL Blood 07/09/2024 8:33 PM CDT 07/09/2024 8:33 PM CDT Elvira Cooper MD LAB POCT ORDERABLES - DEV ICE Final Result Performing Organization Address City/[facility]/ZIP Co de Phone Number [facility] [place] [address] * (ABNORMAL) POCT glucose (07/09/2024 4:45 PM CDT) Glucose, POC 296(H) 70 - 199 mg/dL Blood 07/09/2024 4:45 PM CDT 07/09/2024 4:45 PM CDT Elvira Cooper MD LAB POCT ORDERABLES - DEV ICE Final Result Performing Organization Address [facility] de Phone Number [facility] [place] [address] * (ABNORMAL) aPTT (07/09/2024 4:27 PM CDT) aPTT 70(H) 28 - 38 sec Comment: Code Blue specimen - results called to Vinicius DarnellRN) on 07/09/2024 17:05:59 CDT by KG. Interpretive Data Heparin therapeutic range: 66.0 - 100.0 seconds. Range based on correlation with therapeutic heparin activity range of 0.3 - 0.7 Units/mL. Current interpretive data was last revised on 2023. Blood 07/09/2024 4:27 PM CDT 07/09/2024 4:46 PM CDT Result [facility] Elvira Cooper MD LAB BLOOD ORDERABLES Ayanna l Result Performing Organization Address [facility] de Phone Number [facility] [address] * POCT glucose (07/09/2024 11:36 AM CDT) Glucose, POC 195 70 - 199 mg/dL Blood 07/09/2024 11:3 6 AM CDT 07/09/2024 11:36 AM CDT Result [facility] Elvira Cooper MD LAB POCT ORDERABLES - DEV ICE Final Result Performing Organization Address [facility] de Phone Number [facility] [place] [address] * POCT glucose (07/09/2024 7:56 AM CDT) Glucose, POC 167 70 - 199 mg/dL Blood 07/09/2024 7:56 AM CDT 07/09/2024 7:56 AM CDT Elvira Cooper MD LAB POCT ORDERABLES - DEV ICE Final Result Performing Organization Address City/[facility] Co de Phone Number [facility] Department [place] [address] * Potassium, whole blood (07/09/2024 7:11 AM CDT) Pathologist [facility] Potassium, bld 3.7 3.3 - 4.9 mmol/L Blood 07/09/2024 7:11 AM CDT 07/09/2024 7:43 AM CDT Elvira Cooper MD LAB BLOOD ORDERABLES Ayanna l Result Performing Organization Address [facility] Co de Phone Number [facility] [place] [address] * (ABNORMAL) aPTT (07/09/2024 4:59 AM CDT) [facility] aPTT 64(H) 28 - 38 sec Comment: Interpretive Data Heparin therapeutic range: 66.0 - 100.0 seconds. Range based on correlation with therapeutic heparin activity range of 0.3 - 0.7 Units/mL. Current interpretive data was last revised on 2023. Blood 07/09/2024 4:59 AM CDT 07/09/2024 5:43 AM CDT Narrative [facility] - 07/09/2024 6:09 AM CDT STAT PTT [...] ORDERABLES Ayanna l Result Performing Organization Address [facility] de Phone Number OLAMIDE [facility] [place] [address] * HIV 1/2 Antibody plus p24 Antigen Blood (07/08/2024 9:48 PM CDT) [facility] HIV 1/2 ab + p24 ag Nonreactive [...] L ORDERABLES Final Result Performing Organization Address [facility] de Phone Number [facility] [place] [address] * eGFR (07/08/2024 9:48 PM CDT) Pathologist [facility] eGFR 73 >=60 mL/min/1. 73 m2 Comment: [...] 9:48 PM CDT 07/08/2024 10:18 PM CDT us Elvira Cooper MD LAB BLOOD ORDERABLES Ayanna l Result Performing Organization Address City/[facility] Co de Phone Number [facility] [place] [address] * (ABNORMAL) aPTT (07/08/2024 9:48 PM CDT) aPTT 63(H) 28 - 38 sec Comment: Interpretive Data Heparin therapeutic range: 66.0 - 100.0 seconds. Range based on correlation with therapeutic heparin activity range of 0.3 - 0.7 Units/mL. Current interpretive data was last revised on 2023. Blood 07/08/2024 9:48 PM CDT 07/08/2024 10:21 PM CDT us Elvira Cooper MD LAB BLOOD ORDERABLES Ayanna l Result Performing Organization Address City/[facility]/ZIP Co de Phone Number [facility] Department [place] [address] * (ABNORMAL) Comprehensive metabolic panel (07/08/2024 9:48 PM CDT) Sodium 135 135 - 145 mmol/L Potassium, pl 4.4 3.3 - 4.9 mmol/L C[facility] Comment:Hemolyzed; Potassium value may be falsely elevated by as much as 0.6-1.0 mmol/L. Suggest redraw and reanalysis. Chloride 100 97 - 110 mmol/L [facility] CO2 27 22 - 32 mmol/L [facility] Anion gap 8 2 - 15 mmol/L [facility] BUN 18 6 - 25 mg/dL [facility] Creatinine 0.89 0.60 - 1.10 mg/dL [facility] Glucose 186 70 - 199 mg/dL [facility] Comment: Interpretive Data Fasting glucose >/= [...] 2022. Calcium 9.2 8.5 - 10.3 mg/dL [facility] Bilirubin, total 0.3 0.1 - 1.2 mg/dL [facility] Protein, pl 7.2 6.5 - 8.5 g/dL [facility] Albumin 3.1(L) 3.5 - 5.0 g/dL [facility] Alk phos 171(H) 40 - 130 Units/L [facility] ALT 11 7 - 45 Units/L [facility] AST 35 10 - 45 Units/L [facility] Comment:Hemolyzed; result ma y be falsely elevated Blood 07/08/2024 9:48 PM CDT 07/08/2024 10:18 PM CDT Elvira Cooper MD LAB BLOOD ORDERABLES Ayanna l Result Performing Organization Address [facility] Co de Phone Number [facility] Department [place] [address] * (ABNORMAL) CBC without differential (07/08/2024 9:48 PM CDT) WBC 6.1 3.8 - 9.9 K/cumm Hgb 10.8(L) 11.9 - 15.5 g/dL [facility] Hct 33.9(L) 35.6 - 45.5 % [facility] Plt 328 150 - 400 K/cumm [facility] MPV 10.4 9.1 - 12.3 fL [facility] RBC 3.40(L) 3.90 - 5.20 M/cumm [facility] MCV 99.7(H) 81.3 - 96.4 fL [facility] MCH 31.8 27.1 - 33.3 pg [facility] MCHC 31.9(L) 32.3 - 35.7 g/dL [facility] RDW CV 14.1 11.1 - 14.9 % [facility] RDW SD 51.6(H) 35.7 - 48.1 fL [facility] NRBC abs 0.00 0.00 - 0.01 K/cumm [facility] Blood 07/08/2024 9:48 PM CDT 07/08/2024 10:18 PM CDT Elvira Cooper MD LAB BLOOD ORDERABLES Ayanna l Result Performing Organization Address [facility]/ZIP Co de Phone Number [facility] Department [place] [address] * POCT glucose (07/08/2024 8:16 PM CDT) Glucose, POC 190 70 - 199 mg/dL Blood 07/08/2024 8:16 PM CDT 07/08/2024 8:16 PM CDT Elvira Cooper MD LAB POCT ORDERABLES - DEV ICE Final Result Performing Organization Address City/[facility] Co de Phone Number [facility] [place] [address] * POCT glucose (07/08/2024 3:44 PM CDT) Glucose, POC 195 70 - 199 mg/dL Blood 07/08/2024 3:44 PM CDT 07/08/2024 3:44 PM CDT Elvira Cooper MD LAB POCT ORDERABLES - DEV ICE Final Result Performing Organization Address [facility] de Phone Number [facility] [place] [address] * Critical Result Callback Hematology (07/08/2024 12:54 PM CDT) Date Notified [id number] Time Notified 1431 [facility] TestName aPTT OLAMIDE [facility] Called/Read Back Naa QUIÑONEZ [facility] Credentials RN OLAMIDE [facility] Called By john QIUÑONEZ [facility] Blood 07/08/2024 12:5 4 PM CDT 07/08/2024 1:17 PM CDT Elvira Cooper MD LAB BLOOD ORDERABLES Ayanna l Result Performing Organization Address [facility] Co de Phone Number [facility] Department [place] [address] * (ABNORMAL) aPTT (07/08/2024 12:54 PM CDT) aPTT >150(C) 28 - 38 sec Comment: Repeated and verified. Interpretive Data Heparin therapeutic range: 66.0 - 100.0 seconds. Range based on correlation with therapeutic heparin activity range of 0.3 - 0.7 Units/mL. Current interpretive data was last revised on 2023. Blood 07/08/2024 12:5 4 PM CDT 07/08/2024 1:17 PM CDT Narrative OLAMIDE ALEXANDER - 07/08/2024 2:30 PM CDT STAT PTT [...] ORDERABLES Ayanna l Result Performing Organization Address City/[facility]/ZIP Co de Phone Number [facility] [place] [address] * (ABNORMAL) POCT glucose (07/08/2024 11:03 AM CDT) Glucose, POC 271(H) 70 - 199 mg/dL Blood 07/08/2024 11:0 3 AM CDT 07/08/2024 11:03 AM CDT Elvira Cooper MD LAB POCT ORDERABLES - DEV ICE Final Result [facility] [address] * POCT glucose (07/08/2024 7:40 AM CDT) Glucose, POC 170 70 - 199 mg/dL Blood 07/08/2024 7:40 AM CDT 07/08/2024 7:40 AM CDT Elvira Cooper MD LAB POCT ORDERABLES - DEV ICE Final Result Performing Organization Address [facility] Co de Phone Number [facility] [place] [address] * (ABNORMAL) aPTT (07/08/2024 4:53 AM CDT) Pathologist [facility] aPTT 48(H) 28 - 38 sec Comment: Interpretive Data Heparin therapeutic range: 66.0 - 100.0 seconds. Range based on correlation with therapeutic heparin activity range of 0.3 - 0.7 Units/mL. Current interpretive data was last revised on 2023. Blood 07/08/2024 4:53 AM CDT 07/08/2024 5:27 AM CDT Narrative [facility] - 07/08/2024 5:38 AM CDT STAT [...] ORDERABLES Ayanna l Result Performing Organization Address [facility]/ZIP Co de Phone Number OLAMIDE [facility] Department [place] [address] * eGFR (07/07/2024 9:34 PM CDT) Pathologist [facility] eGFR 67 >=60 mL/min/1. 73 m2 Comment: Interpretive Data [...] interpretive data was last reviewed 2021. Blood 07/07/2024 9:34 PM CDT 07/07/2024 10:26 PM CDT us Elvira Cooper MD LAB BLOOD ORDERABLES Ayanna vazquez Result [facility] One [facility] Department [place] [address] * (ABNORMAL) aPTT (07/07/2024 9:34 PM CDT) aPTT 60(H) 28 - 38 sec Comment: Interpretive Data Heparin therapeutic range: 66.0 - 100.0 seconds. Range based on correlation with therapeutic heparin activity range of 0.3 - 0.7 Units/mL. Current interpretive data was last revised on 2023. Blood 07/07/2024 9:34 PM CDT 07/07/2024 10:26 PM CDT us Elvira Cooper MD LAB BLOOD ORDERABLES Ayanna vazquez Result [facility] One [facility] Department [place] [address] * (ABNORMAL) Comprehensive metabolic panel (07/07/2024 9:34 PM CDT) Sodium 136 135 - 145 mmol/L Potassium, pl 4.2 3.3 - 4.9 mmol/L [facility] Comment:Hemolyzed; Potassium value may be falsely elevated by as much as 0.6-1.0 mmol/L. Suggest redraw and reanalysis. Chloride 96(L) 97 - 110 mmol/L [facility] CO2 29 22 - 32 mmol/L [facility] Anion gap 11 2 - 15 mmol/L [facility] BUN 17 6 - 25 mg/dL [facility] Creatinine 0.96 0.60 - 1.10 mg/dL [facility] Glucose 186 70 - 199 mg/dL [facility] Comment: Interpretive Data Fasting glucose >/= [...] interpretive data was last revised 2022. Calcium 8.8 8.5 - 10.3 mg/dL [facility] Bilirubin, total 0.3 0.1 - 1.2 mg/dL [facility] Protein, pl 6.7 6.5 - 8.5 g/dL [facility] Albumin 3.0(L) 3.5 - 5.0 g/dL [facility] Alk phos 174(H) 40 - 130 Units/L [facility] ALT 15 7 - 45 Units/L [facility] AST 42 10 - 45 Units/L [facility] Comment:Hemolyzed; result ma y be falsely elevated Blood 07/07/2024 9:34 PM CDT 07/07/2024 10:26 PM CDT Elvira Cooper MD LAB BLOOD ORDERABLES Ayanna l Result Performing Organization Address City/[facility]/ZIP Co de Phone Number [facility] Department [place] [address] * (ABNORMAL) CBC without differential (07/07/2024 9:34 PM CDT) [facility] WBC 6.1 3.8 - 9.9 K/cumm Hgb 9.9(L) 11.9 - 15.5 g/dL [facility] Hct 30.4(L) 35.6 - 45.5 % [facility] Plt 310 150 - 400 K/cumm [facility] MPV 10.4 9.1 - 12.3 fL [facility] RBC 3.05(L) 3.90 - 5.20 M/cumm [facility] MCV 99.7(H) 81.3 - 96.4 fL [facility] MCH 32.5 27.1 - 33.3 pg [facility] MCHC 32.6 32.3 - 35.7 g/dL [facility] RDW CV 14.1 11.1 - 14.9 % [facility] RDW SD 51.0(H) 35.7 - 48.1 fL [facility] NRBC abs 0.00 0.00 - 0.01 K/cumm [facility] Blood 07/07/2024 9:34 PM CDT 07/07/2024 10:25 PM CDT Elvira Cooper MD LAB BLOOD ORDERABLES Ayanna l Result [facility] Department [place] [address] * (ABNORMAL) POCT glucose (07/07/2024 9:19 PM CDT) Glucose, POC 211(H) 70 - 199 mg/dL Blood 07/07/2024 9:19 PM CDT 07/07/2024 9:19 PM CDT Elvira Cooper MD LAB POCT ORDERABLES - DEV ICE Final Result Performing Organization Address [facility] de Phone Number [facility] Department [place] [address] * POCT glucose (07/07/2024 4:49 PM CDT) Glucose, POC 191 70 - 199 mg/dL Blood 07/07/2024 4:49 PM CDT 07/07/2024 4:49 PM CDT Elvira Cooper MD LAB POCT ORDERABLES - DEV ICE Final Result Performing Organization Address [facility] de Phone Number [facility] Department [place] [address] * TRANSTHORACIC ECHO (TTE) COMPLETE W DOPPLER/CF W CONTRAST (07/07/2024 2:23 PM CDT) [facility] LV EF 30 % CARDIOREPORT Anatomical Region Laterality Modality Ultrasound 07/07/2024 1:00 PM CDT Narrative 07/07/2024 3:43 PM CDT Patient name: Lei Rodriguez Date of test: 07/07/2024 Type of test: TTE w/Doppler Hospital #: 0 Date of : 1960 (F) Statistics Teacher: Linda Caputo EDY Referring Physician: ELVIRA COOPER MD Contrast Agent: 0.45 ml Definity Administered, (1.05 ml wasted). Contrast Administered by: Hailee Burroughs RN Supervised/Interpreted by: Nikko Greenwood MD. Diagnosis: [facility] Reason for test: c/f vegetation on pacer leads MV Structure: Normal, ?MV Motion: Normal, ?? Mitral Annulus: mildly calcified AV Structure: tricuspid and is Normal, ?? AV Motion: Normal Aotic root: Normal, ?TM: Normal, ?? PV: Normal Valvular Vegetations: cannot r/o tricuspid, ?? Mass/Thrombi: none seen RA: mildly increased Measurements: ?M-Mode ?Normal ? Aotic Root: ? <3.8 ? LA: ? <3.8 ? RV: ? <2.8 ? LV(ED): ? <5.7 ? LV(ES): ? Variable ?2D Linear Normal ? Aotic Root: 3.1 cm ?<3.6 ? Ao Indexed: 1.4 cm/M2 <2.0 ? LA: ? <3.8 ? RV: ? 3.7 cm ?<4.2 ? LV(ED): ? 5.7 cm ?<5.3 ? LV(ES): ? 4.4 cm ?<3.5 ?2D Vol. ?? Normal ?Indexed ?? Indexed Normal RA: ? 88.0 ml ? 40.5 ml/M2 ?9-33 ? LA: ? 85.0 ml ? 39.1 ml/M2 ?16-34 ? RV: ? <11.6 ? LV(ED): ? 132.0 ml ??46-106 ?60.7 ml/M2 ?<62 ? LV(ES): ? 93.0 ml ?? 14-42 ? 42.8 ml/M2 ?<25 ?3D Vol. ? Indexed Normal LV(ED): ?<62 ? LV(ES): ?<24 ? LV EF: 30 % (Mod. Marsh's) ?? (Normal: >=54%) ?? LV Septum: 0.7 cm ?(Normal: <0.9 cm) Wall Motion Scoring (1=Normal 2=Hypo 3=Akinetic 4=Dyskin./Aneurysm 0=Not visualized) Parasternal Long Okarche:MAS=2 BAS=2 MIL=2 HECTOR=2 Parasternal Short Okarche:MAS=2 MIS=2 AL=2 MIL=2 MAL=2 MA=2 Apical 4 Chambers:=2 MIS=2 BIS=2 BAL=2 MAL=2 AL=2 AC=2 Apical 2 Chambers:AI=2 AL=2 BI=2 BA=2 MA=2 AA=2 AC=2 LV Global Longitudinal Strain: RV Global Longitudinal Strain: LV Function: Moderate Global reduction in LV Ejection Fraction (EF=30-40%); EF via modified Marsh's. RV Function: Normal Septal Motion: Normal Pericardial Effusion: small Atrial Septum: Normal DOPPLER/COLOR FLOW DOPPLER RESULTS: Diastolic Function: indeterminate Tricuspid Valve: mild TV regurgitation Pulmonic Valve: mild LA AV Regurgitation: Mild AR AV Stenosis: no AV Area: ??cm2 AV Pressure Gradient (mmHg): Mean: 0, Peak:0 MV Regurgitation: Mild MR MV Stenosis: no MS MV Area: ??cm2 MV Pressure Gradient (mmHg): Mean: 0 MV ERO: ??cm Regurg. Vol.: ??ml/beat Regurg. Frac.: ??% PA Pressure: 28 mmHg DOPPLER/COLOR FOLOW DOPPLER COMMENTS: Mild AR, Mild MR, no , no MS, mild TV regurgitation, mild LA. Diastolic function: indeterminate CONTRAST: 0.45 ml Definity Administered, (1.05 ml wasted). SUMMARY: Mildly dilated LV, moderate to severe LV systolic dysfunction, EF=30%. Normal RV size and function. Mild biatrial enlargement. Normal IVC. Normal size aortic root. Mild MR, AR, TR. Small (9x7mm), modile echodensity attached to the V lead at the atrial level just proximal to TV, consider thrombus vs. vegetation. Cannot exclude involvement of TV. Consider GT to further evaluate. Confirmed on ??07/07/2024 - 15:43:01 by Nikko Greenwood MD. By signing this report, the attending arboreal scientist certifies that he or she has personally supervised and interpreted the echocardiogram and has reviewed and or edited and agrees with the written comments contained within the report. Procedure Note Nikko Greenwood MD - 07/07/2024 Patient name: Lei Rodriguez Date of test: 07/07/2024 Type of test: TTE w/Doppler Hospital #: [id number] Date of : 1960 (F) Statistics Teacher: Linda Caputo [facility] Referring Physician: ELVIRA COOPER MD Contrast Agent: 0.45 ml Definity Administered, (1.05 ml wasted). Contrast Administered by: Hailee Burroughs RN Supervised/Interpreted by: Nikko Greenwood MD. Diagnosis: Location: [facility] Reason for test: c/f vegetation on pacer leads MV Structure: Normal, MV Motion: Normal, Mitral Annulus: mildly calcified AV Structure: tricuspid and is Normal, AV Motion: Normal Aotic root: Normal, TM: Normal, PV: Normal Valvular Vegetations: cannot r/o tricuspid, Mass/Thrombi: none seen RA: mildly increased Measurements: M-Mode Normal Aotic Root: <3.8 LA: <3.8 RV: <2.8 LV(ED): <5.7 LV(ES): Variable 2D Linear Normal Aotic Root: 3.1 cm <3.6 Ao Indexed: 1.4 cm/M2 <2.0 LA: <3.8 RV: 3.7 cm <4.2 LV(ED): 5.7 cm <5.3 LV(ES): 4.4 cm <3.5 2D Vol. Normal Indexed Indexed Normal RA: 88.0 ml 40.5 ml/M2 9-33 LA: 85.0 ml 39.1 ml/M2 16-34 RV: <11.6 LV(ED): 132.0 ml 46-106 60.7 ml/M2 <62 LV(ES): 93.0 ml 14-42 42.8 ml/M2 <25 3D Vol. Indexed Normal LV(ED): <62 LV(ES): <24 LV EF: 30 % (Mod. Marsh's) (Normal: >=54%) LV Septum: 0.7 cm (Normal: <0.9 cm) Wall Motion Scoring (1=Normal 2=Hypo 3=Akinetic 4=Dyskin./Aneurysm 0=Not visualized) Parasternal Long Okar[place]:MAS=2 BAS=2 MIL=2 HECTOR=2 Parasternal Short Okarche:MAS=2 MIS=2 AL=2 MIL=2 MAL=2 MA=2 Apical 4 Chambers:=2 MIS=2 BIS=2 BAL=2 MAL=2 AL=2 AC=2 Apical 2 Chambers:AI=2 AL=2 BI=2 BA=2 MA=2 AA=2 AC=2 LV Global Longitudinal Strain: RV Global Longitudinal Strain: LV Function: Moderate Global reduction in LV Ejection Fraction (EF=30-40%); EF via modified Marsh's. RV Function: Normal Septal Motion: Normal Pericardial Effusion: small Atrial Septum: Normal DOPPLER/COLOR FLOW DOPPLER RESULTS: Diastolic Function: indeterminate Tricuspid Valve: mild TV regurgitation Pulmonic Valve: mild LA AV Regurgitation: Mild AR AV Stenosis: no AV Area: cm2 AV Pressure Gradient (mmHg): Mean: 0, Peak:0 MV Regurgitation: Mild MR MV Stenosis: no MS MV Area: cm2 MV Pressure Gradient (mmHg): Mean: 0 MV ERO: cm Regurg. Vol.: ml/beat Regurg. Frac.: % PA Pressure: 28 mmHg DOPPLER/COLOR FOLOW DOPPLER COMMENTS: Mild AR, Mild MR, no , no MS, mild TV regurgitation, mild LA. Diastolic function: indeterminate CONTRAST: 0.45 ml Definity Administered, (1.05 ml wasted). SUMMARY: Mildly dilated LV, moderate to severe LV systolic dysfunction, EF=30%. Normal RV size and function. Mild biatrial enlargement. Normal IVC. Normal size aortic root. Mild MR, AR, TR. Small (9x7mm), modile echodensity attached to the V lead at the atrial level just proximal to TV, consider thrombus vs. vegetation. Cannot exclude involvement of TV. Consider GT to further evaluate. Confirmed on 07/07/2024 - 15:43:01 by Nikko Greenwood MD. By signing this report, the attending arboreal scientist certifies that he or she has personally supervised and interpreted the echocardiogram and has reviewed and or edited and agrees with the written comments contained within the report. us Elvira Cooper MD CV ECHO PROCEDURES Final Result * (ABNORMAL) aPTT (07/07/2024 12:47 PM CDT) aPTT 108(H) 28 - 38 sec Comment: Interpretive Data Heparin therapeutic range: 66.0 - 100.0 seconds. Range based on correlation with therapeutic heparin activity range of 0.3 - 0.7 Units/mL. Current interpretive data was last revised on 2023. Blood 07/07/2024 12:4 7 PM CDT 07/07/2024 1:14 PM CDT Tal QUIÑONEZ [facility] - 07/07/2024 1:41 PM CDT STAT PTT timing: - Draw [...] ORDERABLES Ayanna l Result Performing Organization Address [facility] Co de Phone Number [facility] [place] [address] * (ABNORMAL) POCT glucose (07/07/2024 12:33 PM CDT) Glucose, POC 272(H) 70 - 199 mg/dL Blood 07/07/2024 12:3 3 PM CDT 07/07/2024 12:33 PM CDT Elvira Cooper MD LAB POCT ORDERABLES - DEV ICE Final Result Performing Organization Address [facility] Co de Phone Number [facility] [place] [address] * (ABNORMAL) POCT glucose (07/07/2024 7:23 AM CDT) Glucose, POC 215(H) 70 - 199 mg/dL Blood 07/07/2024 7:23 AM CDT 07/07/2024 7:23 AM CDT Elvira Cooper MD LAB POCT ORDERABLES - DEV ICE Final Result Performing Organization Address [facility] de Phone Number [facility] [place] [address] * US Outside Consult (07/07/2024 7:10 AM CDT) Anatomical Region Laterality Modality Ultrasound 07/07/2024 8:00 AM CDT Impressions 07/07/2024 8:00 AM CDT 1. ??No hydronephrosis. The findings and impression are based on the available images, which may not be underwriting service representative of the entire organ or disease entity. Also note that ultrasound image acquisition is mail handler equipment operator dependent, and that the study was performed outside our facility with no control over image acquisition. ??In addition, the provided images may or may not represent the nenana source data set and thus may contain changes that may lower the accuracy of this second-opinion interpretation. The findings, conclusions and recommendations within this report do not replace the initial findings, conclusions ??and recommendations made at the facility where the study was performed based upon the imaging and clinical condition at that time. ??Comparison with the prior report and clinical history is necessary. Electronically signed by: Kevin Gottlieb M.D. Narrative 07/07/2024 8:00 AM CDT EXAMINATION: RADIOLOGY CONSULTATION ON OUTSIDE IMAGING STUDY STUDY INITIALLY PERFORMED: 07/01/2024 at [facility]. TYPE OF STUDY: Multiple ultrasound images without cine clips of the kidneys are provided at the time of this interpretation. TYPE OF CONSULTATION: Consult on outside imaging study with images submitted through Outside Image Sharing Service DATE OF CONSULTATION: 07/07/2024 7:58 AM HISTORY: Flank pain COMPARISON: CT performed on 06/26/2024 FINDINGS: The kidneys are upper limits of normal in size, measuring 13.9 cm on the right and 14.8 cm on the left. ??There is no hydronephrosis on either side. ??No suspicious renal lesion. ??No renal calculus. ??The bladder is partially distended but appears grossly normal. Procedure Note Kevin Gottlieb MD - 07/07/2024 EXAMINATION: RADIOLOGY CONSULTATION ON OUTSIDE IMAGING STUDY STUDY INITIALLY PERFORMED: 07/01/2024 at [facility]. TYPE OF STUDY: Multiple ultrasound images without cine clips of the kidneys are provided at the time of this interpretation. TYPE OF CONSULTATION: Consult on outside imaging study with images submitted through Outside Image Sharing Service DATE OF CONSULTATION: 07/07/2024 7:58 AM HISTORY: Flank pain COMPARISON: CT performed on 06/26/2024 FINDINGS: The kidneys are upper limits of normal in size, measuring 13.9 cm on the right and 14.8 cm on the left. There is no hydronephrosis on either side. No suspicious renal lesion. No renal calculus. The bladder is partially distended but appears grossly normal. IMPRESSION: 1. No hydronephrosis. The findings and impression are based on the available images, which may not be underwriting service representative of the entire organ or disease entity. Also note that ultrasound image acquisition is mail handler equipment operator dependent, and that the study was performed outside our facility with no control over image acquisition. In addition, the provided images may or may not represent the nenana source data set and thus may contain changes that may lower the accuracy of this second-opinion interpretation. The findings, conclusions and recommendations within this report do not replace the initial findings, conclusions and recommendations made at the facility where the study was performed based upon the imaging and clinical condition at that time. Comparison with the prior report and clinical history is necessary. Electronically signed by: Kevin Gottlieb M.D. Marylou Saravia MD IMG US PROCEDURES Fi nal Result * CT Body Outside Consult (07/07/2024 6:56 AM CDT) Anatomical Region Laterality Modality Body N/A Computed Tomogra phy 07/07/2024 8:45 AM CDT Impressions 07/07/2024 8:45 AM CDT 1. ??New bilateral pulmonary nodules which have developed since 05/30/2024 and in the setting of bacteremia may represent septic emboli. 2. ??No acute process in the abdomen or pelvis or CT explanation for back pain The findings, conclusions and recommendations within this report do not replace the initial findings, conclusions ??and recommendations made at the facility where the study was performed based upon the imaging and clinical condition at that time. ??Comparison with the prior report and clinical history is necessary. ??The provided images may or may not represent the nenana source data set and thus may contain changes that may lower the accuracy of this second-opinion interpretation. Electronically signed by: Geo Patel MD, PHD Narrative 07/07/2024 8:45 AM CDT EXAMINATION: RADIOLOGY CONSULTATION ON OUTSIDE IMAGING STUDY STUDY INITIALLY PERFORMED: 06/28/2024 and 07/06/[address] [facility]. TYPE OF STUDY: Multiple CT images of the chest, abdomen, and pelvis without intravenous contrast are provided at the time of this interpretation. CONTRAST ROUTE: No contrast was administered. The protocol was adequate to address the clinical question. The outside final report was available at the time of this second opinion interpretation. TYPE OF CONSULTATION: Consult on outside imaging study with images submitted through Outside Image Sharing Service DATE OF CONSULTATION: 07/07/2024 8:31 AM HISTORY: Back pain with history of bacteremia, concern for discitis osteomyelitis COMPARISON: Thoracic and lumbar spine CT dated 07/02/2024, CT abdomen pelvis 06/26/2024, CT chest 05/30/2024 FINDINGS: Unchanged wire in the right lower lobe pulmonary artery. There are multiple pulmonary nodules that have developed since 05/30/2024, including a 6 mm nodule in the right upper lobe on series 4 image 29, a 13 mm nodule in the right middle lobe on series 4 image 44, and an 11 mm nodule in the left lower lobe on series 4 image 54. No pleural effusion or pneumothorax. ??No focal consolidation. ??There is moderate cardiomegaly with pacemaker defibrillator leads terminating in the right atrium and right ventricle. ??Small pericardial effusion. ??There are multiple subcentimeter mediastinal lymph nodes are likely reactive, including a 13 mm pretracheal lymph node on series 3 image 35. Normal noncontrast appearance of the liver. ??Gallbladder is surgically absent. ??Pancreas, spleen, and adrenal glands are normal. Normal appearance of both kidneys with no hydronephrosis. ??Ureters are nondilated. ??Urinary bladder contains gas, possibly related to catheterization. ??Uterus is normal in size. ??No adnexal mass. Colonic diverticulosis is noted without evidence of diverticulitis. The appendix is not definitely seen. ??Small bowel and stomach are normal. ??No mesenteric, retroperitoneal, pelvic, or inguinal lymphadenopathy. ??No intra-abdominal free air or free fluid. ??Mild calcified atherosclerotic disease in the abdominal aorta. No suspicious osseous lesion. Procedure Note Geo Patel MD PhD - 07/07/2024 EXAMINATION: RADIOLOGY CONSULTATION ON OUTSIDE IMAGING STUDY STUDY INITIALLY PERFORMED: 06/28/2024 and 07/06/[address] [facility]. TYPE OF STUDY: Multiple CT images of the chest, abdomen, and pelvis without intravenous contrast are provided at the time of this interpretation. CONTRAST ROUTE: No contrast was administered. The protocol was adequate to address the clinical question. The outside final report was available at the time of this second opinion interpretation. TYPE OF CONSULTATION: Consult on outside imaging study with images submitted through Outside Image Sharing Service DATE OF CONSULTATION: 07/07/2024 8:31 AM HISTORY: Back pain with history of bacteremia, concern for discitis osteomyelitis COMPARISON: Thoracic and lumbar spine CT dated 07/02/2024, CT abdomen pelvis 06/26/2024, CT chest 05/30/2024 FINDINGS: Unchanged wire in the right lower lobe pulmonary artery. There are multiple pulmonary nodules that have developed since 05/30/2024, including a 6 mm nodule in the right upper lobe on series 4 image 29, a 13 mm nodule in the right middle lobe on series 4 image 44, and an 11 mm nodule in the left lower lobe on series 4 image 54. No pleural effusion or pneumothorax. No focal consolidation. There is moderate cardiomegaly with pacemaker defibrillator leads terminating in the right atrium and right ventricle. Small pericardial effusion. There are multiple subcentimeter mediastinal lymph nodes are likely reactive, including a 13 mm pretracheal lymph node on series 3 image 35. Normal noncontrast appearance of the liver. Gallbladder is surgically absent. Pancreas, spleen, and adrenal glands are normal. Normal appearance of both kidneys with no hydronephrosis. Ureters are nondilated. Urinary bladder contains gas, possibly related to catheterization. Uterus is normal in size. No adnexal mass. Colonic diverticulosis is noted without evidence of diverticulitis. The appendix is not definitely seen. Small bowel and stomach are normal. No mesenteric, retroperitoneal, pelvic, or inguinal lymphadenopathy. No intra-abdominal free air or free fluid. Mild calcified atherosclerotic disease in the abdominal aorta. No suspicious osseous lesion. IMPRESSION: 1. New bilateral pulmonary nodules which have developed since 05/30/2024 and in the setting of bacteremia may represent septic emboli. 2. No acute process in the abdomen or pelvis or CT explanation for back pain The findings, conclusions and recommendations within this report do not replace the initial findings, conclusions and recommendations made at the facility where the study was performed based upon the imaging and clinical condition at that time. Comparison with the prior report and clinical history is necessary. The provided images may or may not represent the nenana source data set and thus may contain changes that may lower the accuracy of this second-opinion interpretation. Electronically signed by: Geo Patel MD, PHD Marylou Saravia MD IMG CT PROCEDURES Fi nal Result * Neuro CT Outside Consult (07/07/2024 6:48 AM CDT) Anatomical Region Laterality Modality N/A Computed Tomogra phy 07/07/2024 10:2 2 AM CDT Impressions 07/07/2024 10:22 AM CDT Please refer to separate report for incidental findings. Head CT: No large acute territory infarct and no acute intracranial hemorrhage. Moderate to severe microvascular ischemic disease without prior imaging to assess stability. ?? CT total spine: No CT evidence of osteomyelitis however this does not exclude the diagnosis; an MR spine is recommended for further evaluation. Mediastinal adenopathy, cardiomegaly, pericardial effusion and lung nodules are better evaluated on concurrent CT chest, abdomen and pelvis. The findings, conclusions and recommendations within this report do not replace the initial findings, conclusions ??and recommendations made at the facility where the study was performed based upon the imaging and clinical condition at that time. ??Comparison with the prior report and clinical history is necessary. ??The provided images may or may not represent the nenana source data set and thus may contain changes that may lower the accuracy of this second-opinion interpretation. Electronically signed by: Carlota Murguia M.D. Narrative 07/07/2024 10:22 AM CDT EXAMINATION: RADIOLOGY CONSULTATION ON OUTSIDE IMAGING STUDY STUDY INITIALLY PERFORMED: 06/10/2024 and 07/02/2024 at [facility]. TYPE OF STUDY: Multiple CT images of the head, cervical and thoracic spine without and with contrast are provided at the time of this interpretation. CONTRAST ROUTE: Intravenous The protocol was adequate to address the clinical question. The outside final report was not available at the time of this second opinion interpretation. TYPE OF CONSULTATION: Consult on outside imaging study with images submitted through Outside Image Sharing Service DATE OF CONSULTATION: 07/07/2024 10:13 AM HISTORY: Osteomyelitis COMPARISON: Outside CT cervical spine dated 06/10/2024. FINDINGS: Please refer to separate report for incidental findings. Head CT: Moderate to severe microvascular ischemic disease without prior imaging to assess stability. ??Severe intracranial atherosclerotic disease. ??No large acute territory infarct and no acute intracranial hemorrhage. ??No herniation or hydrocephalus. CT cervical spine: Multilevel ohtx-ct-waiodgtu degenerative change without high-grade spinal canal or neural foraminal narrowing. ??No CT evidence of osteomyelitis in the cervical spine. Thoracic spine: Multilevel zmkq-qi-ldgrhetu degenerative change without high-grade spinal canal or neural foraminal narrowing. ??No CT evidence of osteomyelitis in the cervical spine. Mediastinal adenopathy, cardiomegaly, pericardial effusion and lung nodules are better evaluated on concurrent CT chest, abdomen and pelvis. Lumbar spine: Multilevel dgul-cx-yelmpqwa degenerative change without high-grade spinal canal or neural foraminal narrowing. ??No CT evidence of osteomyelitis in the cervical spine. Procedure Note Carlota Pompa MD - 07/07/2024 EXAMINATION: RADIOLOGY CONSULTATION ON OUTSIDE IMAGING STUDY STUDY INITIALLY PERFORMED: 06/10/2024 and 07/02/2024 at [facility]. TYPE OF STUDY: Multiple CT images of the head, cervical and thoracic spine without and with contrast are provided at the time of this interpretation. CONTRAST ROUTE: Intravenous The protocol was adequate to address the clinical question. The outside final report was not available at the time of this second opinion interpretation. TYPE OF CONSULTATION: Consult on outside imaging study with images submitted through Outside Image Sharing Service DATE OF CONSULTATION: 07/07/2024 10:13 AM HISTORY: Osteomyelitis COMPARISON: Outside CT cervical spine dated 06/10/2024. FINDINGS: Please refer to separate report for incidental findings. Head CT: Moderate to severe microvascular ischemic disease without prior imaging to assess stability. Severe intracranial atherosclerotic disease. No large acute territory infarct and no acute intracranial hemorrhage. No herniation or hydrocephalus. CT cervical spine: Multilevel zbca-ez-vbwoydxe degenerative change without high-grade spinal canal or neural foraminal narrowing. No CT evidence of osteomyelitis in the cervical spine. Thoracic spine: Multilevel yiok-nx-rokykudr degenerative change without high-grade spinal canal or neural foraminal narrowing. No CT evidence of osteomyelitis in the cervical spine. Mediastinal adenopathy, cardiomegaly, pericardial effusion and lung nodules are better evaluated on concurrent CT chest, abdomen and pelvis. Lumbar spine: Multilevel akff-ok-frpltsqd degenerative change without high-grade spinal canal or neural foraminal narrowing. No CT evidence of osteomyelitis in the cervical spine. IMPRESSION: Please refer to separate report for incidental findings. Head CT: No large acute territory infarct and no acute intracranial hemorrhage. Moderate to severe microvascular ischemic disease without prior imaging to assess stability. CT total spine: No CT evidence of osteomyelitis however this does not exclude the diagnosis; an MR spine is recommended for further evaluation. Mediastinal adenopathy, cardiomegaly, pericardial effusion and lung nodules are better evaluated on concurrent CT chest, abdomen and pelvis. The findings, conclusions and recommendations within this report do not replace the initial findings, conclusions and recommendations made at the facility where the study was performed based upon the imaging and clinical condition at that time. Comparison with the prior report and clinical history is necessary. The provided images may or may not represent the nenana source data set and thus may contain changes that may lower the accuracy of this second-opinion interpretation. Electronically signed by: Carlota Murguia M.D. Marylou Saravia MD IMG CT PROCEDURES Fi nal Result * Neuro CT Outside Consult (07/07/2024 6:43 AM CDT) Anatomical Region Laterality Modality N/A Computed Tomogra phy 07/07/2024 10:2 2 AM CDT Impressions 07/07/2024 10:22 AM CDT Please refer to separate report for incidental findings. Head CT: No large acute territory infarct and no acute intracranial hemorrhage. Moderate to severe microvascular ischemic disease without prior imaging to assess stability. ?? CT total spine: No CT evidence of osteomyelitis however this does not exclude the diagnosis; an MR spine is recommended for further evaluation. Mediastinal adenopathy, cardiomegaly, pericardial effusion and lung nodules are better evaluated on concurrent CT chest, abdomen and pelvis. The findings, conclusions and recommendations within this report do not replace the initial findings, conclusions ??and recommendations made at the facility where the study was performed based upon the imaging and clinical condition at that time. ??Comparison with the prior report and clinical history is necessary. ??The provided images may or may not represent the nenana source data set and thus may contain changes that may lower the accuracy of this second-opinion interpretation. Electronically signed by: Carlota Murguia M.D. Narrative 07/07/2024 10:22 AM CDT EXAMINATION: RADIOLOGY CONSULTATION ON OUTSIDE IMAGING STUDY STUDY INITIALLY PERFORMED: 06/10/2024 and 07/02/2024 at [facility]. TYPE OF STUDY: Multiple CT images of the head, cervical and thoracic spine without and with contrast are provided at the time of this interpretation. CONTRAST ROUTE: Intravenous The protocol was adequate to address the clinical question. The outside final report was not available at the time of this second opinion interpretation. TYPE OF CONSULTATION: Consult on outside imaging study with images submitted through Outside Image Sharing Service DATE OF CONSULTATION: 07/07/2024 10:13 AM HISTORY: Osteomyelitis COMPARISON: Outside CT cervical spine dated 06/10/2024. FINDINGS: Please refer to separate report for incidental findings. Head CT: Moderate to severe microvascular ischemic disease without prior imaging to assess stability. ??Severe intracranial atherosclerotic disease. ??No large acute territory infarct and no acute intracranial hemorrhage. ??No herniation or hydrocephalus. CT cervical spine: Multilevel yxyy-ob-iqkgnpdm degenerative change without high-grade spinal canal or neural foraminal narrowing. ??No CT evidence of osteomyelitis in the cervical spine. Thoracic spine: Multilevel lyeh-gi-fsyhrglu degenerative change without high-grade spinal canal or neural foraminal narrowing. ??No CT evidence of osteomyelitis in the cervical spine. Mediastinal adenopathy, cardiomegaly, pericardial effusion and lung nodules are better evaluated on concurrent CT chest, abdomen and pelvis. Lumbar spine: Multilevel uxyo-gp-ttefvfka degenerative change without high-grade spinal canal or neural foraminal narrowing. ??No CT evidence of osteomyelitis in the cervical spine. Procedure Note Carlota Pompa MD - 07/07/2024 EXAMINATION: RADIOLOGY CONSULTATION ON OUTSIDE IMAGING STUDY STUDY INITIALLY PERFORMED: 06/10/2024 and 07/02/2024 at [facility]. TYPE OF STUDY: Multiple CT images of the head, cervical and thoracic spine without and with contrast are provided at the time of this interpretation. CONTRAST ROUTE: Intravenous The protocol was adequate to address the clinical question. The outside final report was not available at the time of this second opinion interpretation. TYPE OF CONSULTATION: Consult on outside imaging study with images submitted through Outside Image Sharing Service DATE OF CONSULTATION: 07/07/2024 10:13 AM HISTORY: Osteomyelitis COMPARISON: Outside CT cervical spine dated 06/10/2024. FINDINGS: Please refer to separate report for incidental findings. Head CT: Moderate to severe microvascular ischemic disease without prior imaging to assess stability. Severe intracranial atherosclerotic disease. No large acute territory infarct and no acute intracranial hemorrhage. No herniation or hydrocephalus. CT cervical spine: Multilevel rzuw-rc-hcrhglhq degenerative change without high-grade spinal canal or neural foraminal narrowing. No CT evidence of osteomyelitis in the cervical spine. Thoracic spine: Multilevel cuqu-yd-ilnnfubg degenerative change without high-grade spinal canal or neural foraminal narrowing. No CT evidence of osteomyelitis in the cervical spine. Mediastinal adenopathy, cardiomegaly, pericardial effusion and lung nodules are better evaluated on concurrent CT chest, abdomen and pelvis. Lumbar spine: Multilevel pjbt-xz-pgzaurcr degenerative change without high-grade spinal canal or neural foraminal narrowing. No CT evidence of osteomyelitis in the cervical spine. IMPRESSION: Please refer to separate report for incidental findings. Head CT: No large acute territory infarct and no acute intracranial hemorrhage. Moderate to severe microvascular ischemic disease without prior imaging to assess stability. CT total spine: No CT evidence of osteomyelitis however this does not exclude the diagnosis; an MR spine is recommended for further evaluation. Mediastinal adenopathy, cardiomegaly, pericardial effusion and lung nodules are better evaluated on concurrent CT chest, abdomen and pelvis. The findings, conclusions and recommendations within this report do not replace the initial findings, conclusions and recommendations made at the facility where the study was performed based upon the imaging and clinical condition at that time. Comparison with the prior report and clinical history is necessary. The provided images may or may not represent the nenana source data set and thus may contain changes that may lower the accuracy of this second-opinion interpretation. Electronically signed by: Carlota Murguia M.D. Marylou Saravia MD IMG CT PROCEDURES Fi nal Result * XR Outside Reference (07/07/2024 6:39 AM CDT) Impressions [facility] - 07/07/2024 6:39 AM CDT These images are for Reference purposes only and have not been reviewed by [facility] Radiology. ??There will be no report generated by a [facility] Radiologist. Narrative [facility] - 07/07/2024 6:39 AM CDT EXAMINATION: ??Images For Reference Purposes Only us Marylou Saravia MD IMG XR PROCEDURES Fi nal Result [facility] * Neuro CT Outside Consult (07/07/2024 6:34 AM CDT) Anatomical Region Laterality Modality N/A Computed Tomogra phy 07/07/2024 10:2 2 AM CDT Impressions 07/07/2024 10:22 AM CDT Please refer to separate report for incidental findings. Head CT: No large acute territory infarct and no acute intracranial hemorrhage. Moderate to severe microvascular ischemic disease without prior imaging to assess stability. ?? CT total spine: No CT evidence of osteomyelitis however this does not exclude the diagnosis; an MR spine is recommended for further evaluation. Mediastinal adenopathy, cardiomegaly, pericardial effusion and lung nodules are better evaluated on concurrent CT chest, abdomen and pelvis. The findings, conclusions and recommendations within this report do not replace the initial findings, conclusions ??and recommendations made at the facility where the study was performed based upon the imaging and clinical condition at that time. ??Comparison with the prior report and clinical history is necessary. ??The provided images may or may not represent the nenana source data set and thus may contain changes that may lower the accuracy of this second-opinion interpretation. Electronically signed by: Carlota Murguia M.D. Narrative 07/07/2024 10:22 AM CDT EXAMINATION: RADIOLOGY CONSULTATION ON OUTSIDE IMAGING STUDY STUDY INITIALLY PERFORMED: 06/10/2024 and 07/02/2024 at [facility]. TYPE OF STUDY: Multiple CT images of the head, cervical and thoracic spine without and with contrast are provided at the time of this interpretation. CONTRAST ROUTE: Intravenous The protocol was adequate to address the clinical question. The outside final report was not available at the time of this second opinion interpretation. TYPE OF CONSULTATION: Consult on outside imaging study with images submitted through Outside Image Sharing Service DATE OF CONSULTATION: 07/07/2024 10:13 AM HISTORY: Osteomyelitis COMPARISON: Outside CT cervical spine dated 06/10/2024. FINDINGS: Please refer to separate report for incidental findings. Head CT: Moderate to severe microvascular ischemic disease without prior imaging to assess stability. ??Severe intracranial atherosclerotic disease. ??No large acute territory infarct and no acute intracranial hemorrhage. ??No herniation or hydrocephalus. CT cervical spine: Multilevel jzdb-qc-duqazoqf degenerative change without high-grade spinal canal or neural foraminal narrowing. ??No CT evidence of osteomyelitis in the cervical spine. Thoracic spine: Multilevel rdgc-et-twixahrq degenerative change without high-grade spinal canal or neural foraminal narrowing. ??No CT evidence of osteomyelitis in the cervical spine. Mediastinal adenopathy, cardiomegaly, pericardial effusion and lung nodules are better evaluated on concurrent CT chest, abdomen and pelvis. Lumbar spine: Multilevel cqnz-pk-oqbumfje degenerative change without high-grade spinal canal or neural foraminal narrowing. ??No CT evidence of osteomyelitis in the cervical spine. Procedure Note Carlota Pompa MD - 07/07/2024 EXAMINATION: RADIOLOGY CONSULTATION ON OUTSIDE IMAGING STUDY STUDY INITIALLY PERFORMED: 06/10/2024 and 07/02/2024 at [facility]. TYPE OF STUDY: Multiple CT images of the head, cervical and thoracic spine without and with contrast are provided at the time of this interpretation. CONTRAST ROUTE: Intravenous The protocol was adequate to address the clinical question. The outside final report was not available at the time of this second opinion interpretation. TYPE OF CONSULTATION: Consult on outside imaging study with images submitted through Outside Image Sharing Service DATE OF CONSULTATION: 07/07/2024 10:13 AM HISTORY: Osteomyelitis COMPARISON: Outside CT cervical spine dated 06/10/2024. FINDINGS: Please refer to separate report for incidental findings. Head CT: Moderate to severe microvascular ischemic disease without prior imaging to assess stability. Severe intracranial atherosclerotic disease. No large acute territory infarct and no acute intracranial hemorrhage. No herniation or hydrocephalus. CT cervical spine: Multilevel bqcp-at-cblddnwi degenerative change without high-grade spinal canal or neural foraminal narrowing. No CT evidence of osteomyelitis in the cervical spine. Thoracic spine: Multilevel afti-xz-duzrnevq degenerative change without high-grade spinal canal or neural foraminal narrowing. No CT evidence of osteomyelitis in the cervical spine. Mediastinal adenopathy, cardiomegaly, pericardial effusion and lung nodules are better evaluated on concurrent CT chest, abdomen and pelvis. Lumbar spine: Multilevel bolv-tg-mryttkoo degenerative change without high-grade spinal canal or neural foraminal narrowing. No CT evidence of osteomyelitis in the cervical spine. IMPRESSION: Please refer to separate report for incidental findings. Head CT: No large acute territory infarct and no acute intracranial hemorrhage. Moderate to severe microvascular ischemic disease without prior imaging to assess stability. CT total spine: No CT evidence of osteomyelitis however this does not exclude the diagnosis; an MR spine is recommended for further evaluation. Mediastinal adenopathy, cardiomegaly, pericardial effusion and lung nodules are better evaluated on concurrent CT chest, abdomen and pelvis. The findings, conclusions and recommendations within this report do not replace the initial findings, conclusions and recommendations made at the facility where the study was performed based upon the imaging and clinical condition at that time. Comparison with the prior report and clinical history is necessary. The provided images may or may not represent the [employer]enana source data set and thus may contain changes that may lower the accuracy of this second-opinion interpretation. Electronically signed by: Carlota Murguia M.D. Marylou Saravia MD IMG CT PROCEDURES Fi nal Result * CT Body Outside Consult (07/07/2024 6:32 AM CDT) Anatomical Region Laterality Modality Body N/A Computed Tomogra phy 07/07/2024 7:20 AM CDT Impressions 07/07/2024 7:20 AM CDT This study was initially nominated as a consult on outside images via Outside Image Sharing Service. However, a consult was not performed because a more recent study of the same exam type was nominated for consultation simultaneously. ??This study will be used as a comparison exam. ??Accordingly, there will be no separate report of this study generated by a [facility] Radiologist. Electronically signed by: Kevin Gottlieb M.D. Narrative 07/07/2024 7:20 AM CDT EXAMINATION: ??CHANGE CONSULT ON OUTSIDE IMAGES TO REFERENCE IMAGES Procedure Note Kevin Gottlieb MD - 07/07/2024 EXAMINATION: CHANGE CONSULT ON OUTSIDE IMAGES TO REFERENCE IMAGES IMPRESSION: This study was initially nominated as a consult on outside images via Outside Image Sharing Service. However, a consult was not performed because a more recent study of the same exam type was nominated for consultation simultaneously. This study will be used as a comparison exam. Accordingly, there will be no separate report of this study generated by a [facility] Radiologist. Electronically signed by: Kevin Gottlieb M.D. Marylou Saravia MD IMG CT PROCEDURES Fi nal Result * Neuro CT Outside Consult (07/07/2024 6:29 AM CDT) Anatomical Region Laterality Modality N/A Computed Tomogra phy 07/07/2024 10:2 2 AM CDT Impressions 07/07/2024 10:22 AM CDT Please refer to separate report for incidental findings. Head CT: No large acute territory infarct and no acute intracranial hemorrhage. Moderate to severe microvascular ischemic disease without prior imaging to assess stability. ?? CT total spine: No CT evidence of osteomyelitis however this does not exclude the diagnosis; an MR spine is recommended for further evaluation. Mediastinal adenopathy, cardiomegaly, pericardial effusion and lung nodules are better evaluated on concurrent CT chest, abdomen and pelvis. The findings, conclusions and recommendations within this report do not replace the initial findings, conclusions ??and recommendations made at the facility where the study was performed based upon the imaging and clinical condition at that time. ??Comparison with the prior report and clinical history is necessary. ??The provided images may or may not represent the nenana source data set and thus may contain changes that may lower the accuracy of this second-opinion interpretation. Electronically signed by: Carlota Murguia M.D. Narrative 07/07/2024 10:22 AM CDT EXAMINATION: RADIOLOGY CONSULTATION ON OUTSIDE IMAGING STUDY STUDY INITIALLY PERFORMED: 06/10/2024 and 07/02/2024 at [facility]. TYPE OF STUDY: Multiple CT images of the head, cervical and thoracic spine without and with contrast are provided at the time of this interpretation. CONTRAST ROUTE: Intravenous The protocol was adequate to address the clinical question. The outside final report was not available at the time of this second opinion interpretation. TYPE OF CONSULTATION: Consult on outside imaging study with images submitted through Outside Image Sharing Service DATE OF CONSULTATION: 07/07/2024 10:13 AM HISTORY: Osteomyelitis COMPARISON: Outside CT cervical spine dated 06/10/2024. FINDINGS: Please refer to separate report for incidental findings. Head CT: Moderate to severe microvascular ischemic disease without prior imaging to assess stability. ??Severe intracranial atherosclerotic disease. ??No large acute territory infarct and no acute intracranial hemorrhage. ??No herniation or hydrocephalus. CT cervical spine: Multilevel avxc-ed-hpypihdk degenerative change without high-grade spinal canal or neural foraminal narrowing. ??No CT evidence of osteomyelitis in the cervical spine. Thoracic spine: Multilevel ppnq-pn-dlqcchvz degenerative change without high-grade spinal canal or neural foraminal narrowing. ??No CT evidence of osteomyelitis in the cervical spine. Mediastinal adenopathy, cardiomegaly, pericardial effusion and lung nodules are better evaluated on concurrent CT chest, abdomen and pelvis. Lumbar spine: Multilevel nzxg-mc-uvqbryma degenerative change without high-grade spinal canal or neural foraminal narrowing. ??No CT evidence of osteomyelitis in the cervical spine. Procedure Note Fabiano Murguai, Carlota Aaron MD - 07/07/2024 EXAMINATION: RADIOLOGY CONSULTATION ON OUTSIDE IMAGING STUDY STUDY INITIALLY PERFORMED: 06/10/2024 and 07/02/2024 at [facility]. TYPE OF STUDY: Multiple CT images of the head, cervical and thoracic spine without and with contrast are provided at the time of this interpretation. CONTRAST ROUTE: Intravenous The protocol was adequate to address the clinical question. The outside final report was not available at the time of this second opinion interpretation. TYPE OF CONSULTATION: Consult on outside imaging study with images submitted through Outside Image Sharing Service DATE OF CONSULTATION: 07/07/2024 10:13 AM HISTORY: Osteomyelitis COMPARISON: Outside CT cervical spine dated 06/10/2024. FINDINGS: Please refer to separate report for incidental findings. Head CT: Moderate to severe microvascular ischemic disease without prior imaging to assess stability. Severe intracranial atherosclerotic disease. No large acute territory infarct and no acute intracranial hemorrhage. No herniation or hydrocephalus. CT cervical spine: Multilevel ggra-tq-fgagsfxr degenerative change without high-grade spinal canal or neural foraminal narrowing. No CT evidence of osteomyelitis in the cervical spine. Thoracic spine: Multilevel gbkt-np-rfjzserd degenerative change without high-grade spinal canal or neural foraminal narrowing. No CT evidence of osteomyelitis in the cervical spine. Mediastinal adenopathy, cardiomegaly, pericardial effusion and lung nodules are better evaluated on concurrent CT chest, abdomen and pelvis. Lumbar spine: Multilevel bpof-us-sqsrzupx degenerative change without high-grade spinal canal or neural foraminal narrowing. No CT evidence of osteomyelitis in the cervical spine. IMPRESSION: Please refer to separate report for incidental findings. Head CT: No large acute territory infarct and no acute intracranial hemorrhage. Moderate to severe microvascular ischemic disease without prior imaging to assess stability. CT total spine: No CT evidence of osteomyelitis however this does not exclude the diagnosis; an MR spine is recommended for further evaluation. Mediastinal adenopathy, cardiomegaly, pericardial effusion and lung nodules are better evaluated on concurrent CT chest, abdomen and pelvis. The findings, conclusions and recommendations within this report do not replace the initial findings, conclusions and recommendations made at the facility where the study was performed based upon the imaging and clinical condition at that time. Comparison with the prior report and clinical history is necessary. The provided images may or may not represent the nenana source data set and thus may contain changes that may lower the accuracy of this second-opinion interpretation. Electronically signed by: Carlota Murguia M.D. Marylou Saravia MD IMG CT PROCEDURES Fi nal Result * CT Body Outside Consult (07/07/2024 6:26 AM CDT) Anatomical Region Laterality Modality Body N/A Computed Tomogra phy 07/07/2024 8:45 AM CDT Impressions 07/07/2024 8:45 AM CDT 1. ??New bilateral pulmonary nodules which have developed since 05/30/2024 and in the setting of bacteremia may represent septic emboli. 2. ??No acute process in the abdomen or pelvis or CT explanation for back pain The findings, conclusions and recommendations within this report do not replace the initial findings, conclusions ??and recommendations made at the facility where the study was performed based upon the imaging and clinical condition at that time. ??Comparison with the prior report and clinical history is necessary. ??The provided images may or may not represent the nenana source data set and thus may contain changes that may lower the accuracy of this second-opinion interpretation. Electronically signed by: Geo Patel MD, PHD Narrative 07/07/2024 8:45 AM CDT EXAMINATION: RADIOLOGY CONSULTATION ON OUTSIDE IMAGING STUDY STUDY INITIALLY PERFORMED: 06/28/2024 and 07/06/[address] [facility]. TYPE OF STUDY: Multiple CT images of the chest, abdomen, and pelvis without intravenous contrast are provided at the time of this interpretation. CONTRAST ROUTE: No contrast was administered. The protocol was adequate to address the clinical question. The outside final report was available at the time of this second opinion interpretation. TYPE OF CONSULTATION: Consult on outside imaging study with images submitted through Outside Image Sharing Service DATE OF CONSULTATION: 07/07/2024 8:31 AM HISTORY: Back pain with history of bacteremia, concern for discitis osteomyelitis COMPARISON: Thoracic and lumbar spine CT dated 07/02/2024, CT abdomen pelvis 06/26/2024, CT chest 05/30/2024 FINDINGS: Unchanged wire in the right lower lobe pulmonary artery. There are multiple pulmonary nodules that have developed since 05/30/2024, including a 6 mm nodule in the right upper lobe on series 4 image 29, a 13 mm nodule in the right middle lobe on series 4 image 44, and an 11 mm nodule in the left lower lobe on series 4 image 54. No pleural effusion or pneumothorax. ??No focal consolidation. ??There is moderate cardiomegaly with pacemaker defibrillator leads terminating in the right atrium and right ventricle. ??Small pericardial effusion. ??There are multiple subcentimeter mediastinal lymph nodes are likely reactive, including a 13 mm pretracheal lymph node on series 3 image 35. Normal noncontrast appearance of the liver. ??Gallbladder is surgically absent. ??Pancreas, spleen, and adrenal glands are normal. Normal appearance of both kidneys with no hydronephrosis. ??Ureters are nondilated. ??Urinary bladder contains gas, possibly related to catheterization. ??Uterus is normal in size. ??No adnexal mass. Colonic diverticulosis is noted without evidence of diverticulitis. The appendix is not definitely seen. ??Small bowel and stomach are normal. ??No mesenteric, retroperitoneal, pelvic, or inguinal lymphadenopathy. ??No intra-abdominal free air or free fluid. ??Mild calcified atherosclerotic disease in the abdominal aorta. No suspicious osseous lesion. Procedure Note Geo Patel MD PhD - 07/07/2024 EXAMINATION: RADIOLOGY CONSULTATION ON OUTSIDE IMAGING STUDY STUDY INITIALLY PERFORMED: 06/28/2024 and 07/06/[address] [facility]. TYPE OF STUDY: Multiple CT images of the chest, abdomen, and pelvis without intravenous contrast are provided at the time of this interpretation. CONTRAST ROUTE: No contrast was administered. The protocol was adequate to address the clinical question. The outside final report was available at the time of this second opinion interpretation. TYPE OF CONSULTATION: Consult on outside imaging study with images submitted through Outside Image Sharing Service DATE OF CONSULTATION: 07/07/2024 8:31 AM HISTORY: Back pain with history of bacteremia, concern for discitis osteomyelitis COMPARISON: Thoracic and lumbar spine CT dated 07/02/2024, CT abdomen pelvis 06/26/2024, CT chest 05/30/2024 FINDINGS: Unchanged wire in the right lower lobe pulmonary artery. There are multiple pulmonary nodules that have developed since 05/30/2024, including a 6 mm nodule in the right upper lobe on series 4 image 29, a 13 mm nodule in the right middle lobe on series 4 image 44, and an 11 mm nodule in the left lower lobe on series 4 image 54. No pleural effusion or pneumothorax. No focal consolidation. There is moderate cardiomegaly with pacemaker defibrillator leads terminating in the right atrium and right ventricle. Small pericardial effusion. There are multiple subcentimeter mediastinal lymph nodes are likely reactive, including a 13 mm pretracheal lymph node on series 3 image 35. Normal noncontrast appearance of the liver. Gallbladder is surgically absent. Pancreas, spleen, and adrenal glands are normal. Normal appearance of both kidneys with no hydronephrosis. Ureters are nondilated. Urinary bladder contains gas, possibly related to catheterization. Uterus is normal in size. No adnexal mass. Colonic diverticulosis is noted without evidence of diverticulitis. The appendix is not definitely seen. Small bowel and stomach are normal. No mesenteric, retroperitoneal, pelvic, or inguinal lymphadenopathy. No intra-abdominal free air or free fluid. Mild calcified atherosclerotic disease in the abdominal aorta. No suspicious osseous lesion. IMPRESSION: 1. New bilateral pulmonary nodules which have developed since 05/30/2024 and in the setting of bacteremia may represent septic emboli. 2. No acute process in the abdomen or pelvis or CT explanation for back pain The findings, conclusions and recommendations within this report do not replace the initial findings, conclusions and recommendations made at the facility where the study was performed based upon the imaging and clinical condition at that time. Comparison with the prior report and clinical history is necessary. The provided images may or may not represent the nenana source data set and thus may contain changes that may lower the accuracy of this second-opinion interpretation. Electronically signed by: Geo Patel MD, PHD Marylou Saravia MD IMG CT PROCEDURES Fi nal Result * Infection Prevention MRSA Only (Staphylococcus aureus) Culture Nasal (07/07/2024 4:24 AM CDT) Report Final Report: Negative Nasal 07/07/2024 4:24 AM CDT 07/07/2024 4:47 AM CDT Narrative [facility] - 07/08/2024 5:28 AM CDT Testing performed by [facility] ([phone]). Elvira Cooper MD LAB MICROBIOLOGY - GENERA L ORDERABLES Final Result [facility] Department [place] [address] * (ABNORMAL) Hemoglobin A1c (07/07/2024 1:34 AM CDT) Hgb A1C 7.7(H) 4.0 - 5.6 % Estimated Average Glucose 174 mg/dL [facility] Comment: The ADA recommends reporting an estimated Average Glucose (eAG) with all Hemoglobin A1c results using the equation derived from a study of 507 normal and diabetic adults. ??Minority populations were underrepresented and children were not included. ?? (Diabetes Care 2020; 43(S1): S66-S76). ??The eAG is not equivalent to a fasting glucose. Blood 07/07/2024 1:34 AM CDT 07/07/2024 2:30 AM CDT us Elvira Cooper MD LAB BLOOD ORDERABLES Ayanna l Result [facility] Department [place] [address] * eGFR (07/07/2024 1:34 AM CDT) eGFR >90 >=60 mL/min/1. 73 m2 [...] interpretive data was last reviewed 2021. Blood 07/07/2024 1:34 AM CDT 07/07/2024 2:23 AM CDT Elvira Cooper MD LAB BLOOD ORDERABLES Ayanan l Result [facility] Department [place] [address] * Differential, auto (07/07/2024 1:34 AM CDT) Neutrophil abs 5.5 1.5 - 6.5 K/cumm Imm gran abs 0.1 0.0 - 0.1 K/cumm [facility] Lymphocyte abs 1.3 0.8 - 3.3 K/cumm [facility] Monocyte abs 0.4 0.2 - 0.8 K/cumm [facility] Eosinophil abs 0.3 0.0 - 0.5 K/cumm [facility] Basophil abs 0.1 0.0 - 0.1 K/cumm [facility] Neutrophil pct 71.8 % [facility] Comment: Interpretive Data Percent cell count reference ranges are not reported, since discordance with absolute values may lead to misinterpretation of CBC data. Current Interpretive Data was last revised on 2018. Imm gran pct 1.4 % [facility] Comment: Interpretive Data Percent cell count reference ranges are not reported, since discordance with absolute values may lead to misinterpretation of CBC data. Current Interpretive Data was last revised on 2018. Lymphocyte pct 16.7 % [facility] Comment: Interpretive Data Percent cell count reference ranges are not reported, since discordance with absolute values may lead to misinterpretation of CBC data. Current Interpretive Data was last revised on 2018. Monocyte pct 5.8 % [facility] Comment: Interpretive Data Percent cell count reference ranges are not reported, since discordance with absolute values may lead to misinterpretation of CBC data. Current Interpretive Data was last revised on 2018. Eosinophil pct 3.5 % [facility] Comment: Interpretive Data Percent cell count reference ranges are not reported, since discordance with absolute values may lead to misinterpretation of CBC data. Current Interpretive Data was last revised on 2018. Basophil pct 0.8 % [facility] Comment: Interpretive Data Percent cell count reference ranges are not reported, since discordance with absolute values may lead to misinterpretation of CBC data. Current Interpretive Data was last revised on 2018. Blood 07/07/2024 1:34 AM CDT 07/07/2024 2:25 AM CDT Result [facility] Elvira Cooper MD LAB BLOOD ORDERABLES Ayanna l Result Performing Organization Address City/[facility] Co de Phone Number [facility] [place] [address] * (ABNORMAL) CRP (acute phase) (07/07/2024 1:34 AM CDT) CRP 14.9(H) <=10.0 mg/L Blood 07/07/2024 1:34 AM CDT 07/07/2024 2:23 AM CDT Result [facility] Elvira Cooper MD LAB BLOOD ORDERABLES Ayanna l Result Performing Organization Address [facility] Co de Phone Number [facility] [place] [address] * (ABNORMAL) Erythrocyte sedimentation rate (07/07/2024 1:34 AM CDT) Erythrocyte sedimentation rate 41(H) 1 - 30 mm/hr Blood 07/07/2024 1:34 AM CDT 07/07/2024 2:25 AM CDT Result [facility] Elvira Cooper MD LAB BLOOD ORDERABLES Ayanna l Result Performing Organization Address City/[facility] Co de Phone Number [facility] [address] * Blood culture Blood (07/07/2024 1:34 AM CDT) Report Final Report: No growth Blood 07/07/2024 1:34 AM CDT 07/07/2024 1:53 AM CDT Narrative [facility] ALEXANDER - 07/11/2024 7:00 AM CDT From a different site than #1. Collection->Peripheral 1. ?Blood cultures are incubated for 4 days on a continuously monitored blood culture system. The first report of a negative culture is issued within 24 hours of receipt of the specimen in the laboratory. 2. ?Positive culture results are reported as soon as they are detected. 3. ?The most important factor for detection of microbes in the setting of bloodstream infection is the volume of blood submitted for culture. Failure to collect an optimal blood volume can result in false negative blood cultures. For pediatric patients, the recommended blood volume to collect is 1 mL of blood per year of patient age (up to 20 mL) per blood culture set. For adult patients, 20 mL of blood, divided equally between aerobic and anaerobic blood culture bottles, is recommended for each blood culture set. 4. ?For blood cultures with Gram-positive cocci, a rapid molecular test for organism identification may be performed using the Tuniu Gram-Positive Blood Culture Assay. This assay detects microbial DNA in positive blood culture broth via hybridization of target DNA to capture oligonucleotides on a microarray. This assay has been cleared by the [place] Food and Drug Administration and its performance characteristics have been verified by the [facility]. 5. ?For questions about this culture, contact the Microbiology Laboratory at [phone]. Interpretive data was last revised on 2020. Elvira Cooper MD LAB MICROBIOLOGY - GENERA L ORDERABLES Final Result [facility] Department [place] [address] * Blood culture Blood (07/07/2024 1:34 AM CDT) Report Final Report: No growth Blood 07/07/2024 1:34 AM CDT 07/07/2024 1:53 AM CDT Narrative [facility] ALEXANDER - 07/11/2024 7:00 AM CDT Collection->Peripheral 1. ?Blood cultures are incubated for 4 days on a continuously monitored blood culture system. The first report of a negative culture is issued within 24 hours of receipt of the specimen in the laboratory. 2. ?Positive culture results are reported as soon as they are detected. 3. ?The most important factor for detection of microbes in the setting of bloodstream infection is the volume of blood submitted for culture. Failure to collect an optimal blood volume can result in false negative blood cultures. For pediatric patients, the recommended blood volume to collect is 1 mL of blood per year of patient age (up to 20 mL) per blood culture set. For adult patients, 20 mL of blood, divided equally between aerobic and anaerobic blood culture bottles, is recommended for each blood culture set. 4. ?For blood cultures with Gram-positive cocci, a rapid molecular test for organism identification may be performed using the [employer] Gram-Positive Blood Culture Assay. This assay detects microbial DNA in positive blood culture broth via hybridization of target DNA to capture oligonucleotides on a microarray. This assay has been cleared by the [place] Food and Drug Administration and its performance characteristics have been verified by the [facility]. 5. ?For questions about this culture, contact the Microbiology Laboratory at [phone]. Interpretive data was last revised on 2020. Elvira Cooper MD LAB MICROBIOLOGY - GENERA L ORDERABLES Final Result [facility] Department [place] [address] * aPTT (07/07/2024 1:34 AM CDT) [facility] aPTT 28 28 - 38 sec Comment: Interpretive Data Heparin therapeutic range: 66.0 - 100.0 seconds. Range based on correlation with therapeutic heparin activity range of 0.3 - 0.7 Units/mL. Current interpretive data was last revised on 2023. Blood 07/07/2024 1:34 AM CDT 07/07/2024 2:06 AM CDT Elvira Cooper MD LAB BLOOD ORDERABLES Ayanna l Result Performing Organization Address [facility] Co de Phone Number [facility] [place] [address] * (ABNORMAL) Protime-INR (07/07/2024 1:34 AM CDT) PT 16.0(H) 9.7 - 13.0 sec INR 1.47(H) 0.90 - 1.20 [facility] Comment: Interpretive data Oral anticoagulant therapeutic ranges: Venous thromboembolism prophylaxis or treatment: 2.0-3.0 CARDIOLOGY Standard range: 2.0-3.0 High-intensity range: 2.5-3.5 Refer to indication-specific guidelines for appropriate target ranges for prosthetic heart valve replacement. Current interpretive data was last revised on 2019. Blood 07/07/2024 1:34 AM CDT 07/07/2024 2:06 AM CDT Elvira Cooper MD LAB BLOOD ORDERABLES Ayanna l Result Performing Organization Address [facility] [place] [address] * Type and screen (07/07/2024 1:34 AM CDT) ABO Rh O Positive Marguerite, indirect Negative [facility] Blood 07/07/2024 1:34 AM CDT 07/07/2024 2:14 AM CDT Narrative [facility] - 07/07/2024 3:04 AM CDT Has the patient had Daratumumab or Isatuximab in the past 6 months?->Unknown Elvira Cooper MD LAB BLOOD BANK TEST ORDER DONATO Final Result Performing Organization Address [facility] [place] [address] * (ABNORMAL) CBC with auto differential (07/07/2024 1:34 AM CDT) [facility] WBC 7.7 3.8 - 9.9 K/cumm Hgb 10.8(L) 11.9 - 15.5 g/dL [facility] Hct 33.2(L) 35.6 - 45.5 % [facility] Plt 339 150 - 400 K/cumm [facility] MPV 10.0 9.1 - 12.3 fL [facility] RBC 3.34(L) 3.90 - 5.20 M/cumm [facility] MCV 99.4(H) 81.3 - 96.4 fL [facility] MCH 32.3 27.1 - 33.3 pg [facility] MCHC 32.5 32.3 - 35.7 g/dL [facility] RDW CV 14.1 11.1 - 14.9 % [facility] RDW SD 50.9(H) 35.7 - 48.1 fL [facility] NRBC abs 0.00 0.00 - 0.01 K/cumm [facility] Blood 07/07/2024 1:34 AM CDT 07/07/2024 2:25 AM CDT Elvira Cooper MD LAB BLOOD ORDERABLES Ayanna vazquez Result [facility] Department [place] [address] * Troponin I high-sensitivity (07/07/2024 1:34 AM CDT) [facility] Trop I hs 9 <=17 ng/L Comment: Interpretive Data For further hscTnI resources including the diagnostic algorithm and an aid in interpretation, copy and paste this link: [email or web address]/[email or web address] Current Interpretive Data last revised 2020. Blood 07/07/2024 1:34 AM CDT 07/07/2024 2:25 AM CDT Elvira Cooper MD LAB BLOOD ORDERABLES Ayanna george Result [facility] Department [place] [address] * (ABNORMAL) Pro B-type natriuretic peptide (07/07/2024 1:34 AM CDT) NT-proBNP 3,447(H) <=300 pg/mL Comment: Interpretive Comments: A. Dyspnea in Acute Care Setting All Ages: ?< 300 pg/ml, acute heart failure unlikely. < 50 yrs: ?300 - 450 pg/ml, further investigation warranted. ? > 450 pg/ml, acute heart failure likely. 50 - 74 yrs: ? 300 - 900 pg/ml, further investigation warranted. ? > 900 pg/ml, acute heart failure likely . > or = 75 yrs: ? 450 - 1800 pg/ml, further investigation warranted. ? > 1800 pg/ml, acute heart failure likely. B. Non-acute Setting < 75 yrs ? < 125 pg/ml, rules out heart failure. ? > or = 125 pg/ml, further investigation warranted. > or = 75 yrs ?< 450 pg/ml, rules out heart failure. ? > or = 450 pg/ml, further investigation warranted. - Knowledge of each individual patient's NT-proBNP range may be more useful than using similar cut-points for every patient. Please note that marked elevations in NT-proBNP levels may be observed in state other than Left Ventricular Congestive Failure, including: acute coronary syndromes, right heart strain/failure (including pulmonary embolism and cor pulmonale), critical illness, renal failure, as well as advanced age. - References: 1. Cesar ROME et.al. Eur Heart J. 2006:27:330-337. 2. Chris RW, Joe AM. J. AM Dave Cardiol: Cardiovasc Imag. 2009;2: 216- 225. Interpretive Data Last Revised Date: 2018. Blood 07/07/2024 1:34 AM CDT 07/07/2024 2:23 AM CDT Elvira Cooper MD LAB BLOOD ORDERABLES Ayanna l Result Performing Organization Address City/[facility] Co de Phone Number [facility] [address] [place], [place] [id number] * Lactate (07/07/2024 1:34 AM CDT) Lactate 1.9 0.7 - 2.0 mmol/L Blood 07/07/2024 1:34 AM CDT 07/07/2024 2:25 AM CDT Elvira Cooper MD LAB BLOOD ORDERABLES Ayanna l Result Performing Organization Address [facility] Co de Phone Number [facility] [place] [address] * Magnesium (07/07/2024 1:34 AM CDT) Magnesium 1.9 1.4 - 2.5 mg/dL Blood 07/07/2024 1:34 AM CDT 07/07/2024 2:23 AM CDT Elvira Cooper MD LAB BLOOD ORDERABLES Ayanna l Result Performing Organization Address [facility] Co de Phone Number [facility] [place] [address] * (ABNORMAL) Comprehensive metabolic panel (07/07/2024 1:34 AM CDT) Sodium 136 135 - 145 mmol/L Potassium, pl See Comment 3.3 - 4.9 mmol/L [facility] Comment:Credited; Hemolyzed Specimen Chloride 99 97 - 110 mmol/L [facility] CO2 29 22 - 32 mmol/L [facility] Anion gap 8 2 - 15 mmol/L [facility] BUN 15 6 - 25 mg/dL [facility] Creatinine 0.65 0.60 - 1.10 mg/dL [facility] Glucose 186 70 - 199 mg/dL [facility] Comment: Interpretive Data Fasting glucose >/= [...] interpretive data was last revised 2022. Calcium 8.9 8.5 - 10.3 mg/dL [facility] Bilirubin, total 0.4 0.1 - 1.2 mg/dL [facility] Protein, pl 7.2 6.5 - 8.5 g/dL [facility] Albumin 3.0(L) 3.5 - 5.0 g/dL [facility] Alk phos 182(H) 40 - 130 Units/L [facility] Comment:Hemolyzed; result ma y be falsely decreased ALT See Comment 7 - 45 Units/L [facility] Comment:Credited; Hemolyzed Specimen AST See Comment 10 - 45 Units/L [facility] Comment:Credited; Hemolyzed Specimen Blood 07/07/2024 1:34 AM CDT 07/07/2024 2:23 AM CDT us Elvira Cooper MD LAB BLOOD ORDERABLES Ayanna vazquez Result [facility] Department [place] [address] documented in this encounter Visit Diagnoses Diagnosis Osteomyelitis (HCC)- Primary Unspecified osteomyelitis, site unspecified Acute bacterial endocarditis Acute and subacute bacterial endocarditis Ventricular tachycardia (HCC) Paroxysmal ventricular tachycardia SOB (shortness of breath) Shortness of breath Acute on chronic systolic congestive heart failure (CMS/HCC) (HCC) Endocarditis Endocarditis, valve unspecified, unspecified cause documented in this encounter Admitting Diagnoses Diagnosis Osteomyelitis (HCC) Unspecified osteomyelitis, site unspecified Endocarditis Endocarditis, valve unspecified, unspecified cause documented in this encounter Administered Medications Inactive Administered Medications - up to 3 most recent administrations Medication Order MAR Action Action Date Dose Rate Site acetaminophen (TYLENOL) tablet 1,000 mg 1,000 mg, oral, Once, On Tue07/25/24 at 1330, For 1 dose Given 07/25/2024 12:59 PM CDT 1,000 mg acetaminophen (TYLENOL) tablet 1,000 mg 1,000 mg, oral, Every 8 hours, First dose on Tue07/25/24 at 2000 Given 08/02/2024 11:50 AM CDT 1,000 mg Given 08/01/2024 8:58 PM CDT 1,000 mg Given 08/01/2024 12:35 PM CDT 1,000 mg acetaminophen (TYLENOL) tablet 650 mg 650 mg, oral, Every 4 hours PRN, 1st line for pain, fever, fever greater than 38.3 C, Starting on 07/07/24 at 0013, Indications: Fever, PainIndications:Fever,Pain Given 07/23/2024 11:33 AM CDT 650 mg Given 07/22/2024 12:41 AM CDT 650 mg Given 07/20/2024 11:08 PM CDT 650 mg apixaban (ELIQUIS) tablet 5 mg 5 mg, oral, Every 12 hours scheduled, First dose on 07/14/24 at 2100, Nurse to discontinue heparin infusion order and associated bolus at first administration of apixaban using ? order condition met? order source, Indications: atrial fibrillationIndications:atrial fibrillation Given 08/02/2024 8:41 AM CDT 5 mg Given 08/01/2024 8:58 PM CDT 5 mg Given 08/01/2024 8:26 AM CDT 5 mg calcium carbonate (TUMS) chewable tablet 500 mg 500 mg (200 mg of elemental calcium), oral, 3 times daily PRN, indigestion, Starting on Tue07/29/24 at 1143 Given 07/29/2024 1:01 PM CDT 500 mg Carrier Fluids for Secondary Infusion - 0.9% Sodium Chloride 30 mL, intravenous, As needed, For priming tubing and/or flushing, Starting on 07/07/24 at 0013, 0-250 ml/hr to flush line after IV infusions when no maintenance IV ordered. Infuse 30mL at the same rate as the secondary infusion. Run as primary IV, not intended for KVO. Carrier Fluids for Secondary Infusion - 0.9% Sodium Chloride 30 mL, intravenous, As needed, For priming tubing and/or flushing, Starting on 07/25/24 at 1446, Pre-Procedure (IR), 0-250 ml/hr to flush line after IV infusions when no maintenance IV ordered. Infuse 30mL at the same rate as the secondary infusion. Run as primary IV, not intended for KVO. Given 07/25/2024 4:21 PM CDT 30 mL cefadroxil (DURICEF) 500 mg capsule 1,000 mg 1,000 mg, oral, 2 times daily, First dose on Tue07/25/24 at 2100, Indications: MSSA BSI, in conjuction with Dalbavancin, 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Indications:MSSA BSI, in conjuction with Dalbavancin, 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 Given 08/02/2024 8:41 AM CDT 1,000 mg Given 08/01/2024 8:58 PM CDT 1,000 mg Given 08/01/2024 8:26 AM CDT 1,000 mg ceFAZolin (ANCEF) 2,000 mg/20 mL in sterile water (premix) 2,000 mg 2,000 mg, intravenous, at 400 mL/hr, Administer over 3 Minutes, Every 8 hours scheduled, First dose on 07/07/24 at 0600, Indications: Blood Stream/Endovascular InfectionIndications:Blood Stream/Endovascular Infection Given 07/25/2024 1:00 PM CDT 2,000 mg 4 00 mL/hr Given 07/25/2024 5:19 AM CDT 2,000 mg 400 mL/hr Given 07/24/2024 10:38 PM CDT 2,000 mg 400 mL/hr clonazePAM (KlonoPIN) disintegrating tablet 0.25 mg 0.25 mg, oral, Once, On Tue07/23/24 at 0900, For 1 dose, Please administer to patient with other AM medications Given 07/23/2024 7:58 AM CDT 0.25 mg clonazePAM (KlonoPIN) disintegrating tablet 0.5 mg 0.5 mg, oral, 2 times daily, First dose on Tue07/18/24 at 2100 Given 07/19/2024 9:41 AM CDT 0.5 mg Given 07/18/2024 8:53 PM CDT 0.5 mg cyclobenzaprine (FLEXERIL) tablet 5 mg 5 mg, oral, 3 times daily PRN, muscle spasms, Starting on 07/07/24 at 0110 Given 07/23/2024 11:33 AM CDT 5 mg Given 07/15/2024 10:19 PM CDT 5 mg Given 07/14/2024 9:34 PM CDT 5 mg dalbavancin (DALVANCE) 1,500 mg in dextrose 5% 500 mL IVPB 1,500 mg, intravenous, at 986 mL/hr, Administer over 35 Minutes, Once, On Tue07/25/24 at 1445, For 1 dose, Flush existing line with D5W before and after infusion of dalbavancin. Dalbavancin is not compatible with saline., [facility] appropriate use criteria for dalbavancin are limited to the following below options. It is recommended that therapy for infections outside of these indications be discussed with infectious diseases, if available. Facilitate early discharge by 10-14 days [facility] 07/25/2024 4:21 PM CDT 1,500 mg 986 mL/ hr dalbavancin (DALVANCE) 1,500 mg in dextrose 5% 500 mL IVPB 1,500 mg, intravenous, at 986 mL/hr, Administer over 35 Minutes, Once, On Tue08/01/24 at 1215, For 1 dose, Flush existing line with D5W before and after infusion of dalbavancin. Dalbavancin is not compatible with saline., [facility] appropriate use criteria for dalbavancin are limited to the following below options. It is recommended that therapy for infections outside of these indications be discussed with infectious diseases, if available. Facilitate early discharge by 10-14 days [facility] 08/01/2024 12:54 PM CDT 1,500 mg 986 mL /hr dextrose (D10W) 10% bolus 250 mL 250 mL, intravenous, at 1,000 mL/hr, Administer over 15 Minutes, Every 15 min PRN, blood glucose less than 70 mg/dL and UNABLE to swallow/take PO glucose/juice., Starting on 07/07/24 at 0108, After treatment for hypoglycemia, recheck BG followed by treatment every 15 minutes until the BG is greater than 100 mg/dL. Then check BG 1 hour post treatment. If BG is less than 100 mg/dL, repeat Q15 minute BG checks and treatment. Call MD for each episode of hypoglycemia., Indications: hypoglycemic disorderIndications:hypoglycemic disorder dextrose 5% water flush 10 mL 10 mL, intravenous, Once, On Tue07/25/24 at 1445, For 1 dose, Flush line with D5W BEFORE each dose of dalbavancin (DALVANCE). Given 07/25/2024 4:20 PM CDT 10 mL dextrose 5% water flush 10 mL 10 mL, intravenous, Once, On Tue07/25/24 at 1445, For 1 dose, Flush line with D5W AFTER each dose of dalbavancin (DALVANCE). Given 07/25/2024 5:32 PM CDT 10 mL dextrose 5% water flush 10 mL 10 mL, intravenous, Once, On Tue08/01/24 at 1215, For 1 dose, Flush line with D5W BEFORE each dose of dalbavancin (DALVANCE). Given 08/01/2024 12:54 PM CDT 10 mL dextrose 5% water flush 10 mL 10 mL, intravenous, Once, On Tue08/01/24 at 1215, For 1 dose, Flush line with D5W AFTER each dose of dalbavancin (DALVANCE). Given 08/01/2024 12:56 PM CDT 10 mL dextrose gel in packet 15 g 15 g, oral, Every 15 min PRN, low blood sugar, blood glucose less than 70 mg/dL, Starting on 07/07/24 at 0108, If patient is alert and able to eat/drink, give 15 gm glucose or one juice (4 fluid ounces) NOT ORANGE JUICE. After treatment for hypoglycemia, recheck BG followed by treatment every 15 minutes until the BG is greater than 100 mg/dL. Then check BG 1 hour post-treatment. If BG is less than 100 mg/dL, repeat Q15 minute BG checks and treatment. Call MD for each episode of hypoglycemia., Indications: hypoglycemic disorderIndications:hypoglycemic disorder escitalopram (LEXAPRO) tablet 10 mg 10 mg, oral, Daily, First dose on 07/07/24 at 0900 Given 08/02/2024 8:43 AM CDT 10 mg Given 08/01/2024 8:26 AM CDT 10 mg Given 07/31/2024 8:57 AM CDT 10 mg fludeoxyglucose F-18 (FDG) injection 15 millicurie 15 millicurie, intravenous, Once in imaging, radiopharmaceutical, Starting on 07/23/24 at 0839, For 1 dose Given 07/23/2024 9:00 AM CDT 17.34 millicuries furosemide (LASIX) tablet 40 mg 40 mg, oral, Daily, First dose on 07/07/24 at 0900 Given 08/02/2024 8:43 AM CDT 40 mg Given 08/01/2024 8:27 AM CDT 40 mg Given 07/31/2024 8:56 AM CDT 40 mg glucagon injection 1 mg 1 mg, intramuscular, Every 30 min PRN, low blood sugar, blood glucose less than 70 mg/dL AND no IV access AND unable to take PO glucose/juice., Starting on 07/07/24 at 0108, After Glucagon is administered, position patient on side if possible to avoid aspiration. Obtain IV access. Follow glucagon treatment with glucose treatment or IV dextrose. After treatment for hypoglycemia, recheck BG followed by treatment every 15 minutes until the BG is greater than 100 mg/dL. Then check BG 1 hour post treatment. If BG is less than 100 mg/dL, repeat Q15 minute BG checks and treatment. Call MD for each episode of hypoglycemia. Reconstitute 1 mg vial with 1 mL SWFI. Use immediately following reconstitution. Given 07/21/2024 2:20 PM CDT 1 mg Right Deltoid heparin 1,000 unit/mL injection 4,500 Units 4,500 Units (rounded from 4,544 Units = 40 Units/kg ? 113.6 kg), intravenous, Every 6 hours PRN, PTT 46-55 seconds, Starting on 07/07/24 at 0433, Subsequent bolus during heparin infusion., Indications: Venous ThrombosisIndications:Venous Thrombosis Given 07/11/2024 10:30 PM CDT 4,500 Units Given 07/08/2024 6:37 AM CDT 4,500 Units heparin 1,000 unit/mL injection 9,100 Units 9,100 Units (rounded from 9,088 Units = 80 Units/kg ? 113.6 kg), intravenous, Once, On 07/07/24 at 0515, For 1 dose, Initial bolus prior to starting heparin infusion. Do not adjust initial bolus based on patient PTT., Indications: Venous ThrombosisIndications:Ve nous Thrombosis Given 07/07/2024 6:32 AM CDT 9,100 Units heparin in 0.45% sodium chloride 25,000 units/250 mL (100 units/mL) infusion (premix) 0-33 Units/kg/hr ? 113.6 kg (0-37.488 mL/hr, rounded to 0-37.49 mL/hr), intravenous, Titrated, Starting on 07/07/24 at 0515, WEIGHT-BASED HEPARIN INFUSION Begin infusion at dose of: 14 units/kg/hr Titration Instructions- Adjust dose based on PTT Results STAT PTT timing: - Draw 6 hours after heparin infusion initiation - Draw 6 hours after every dose change until 2 consecutive PTTs are therapeutic - Once 2 consecutive PTTs are therapeutic, draw with daily labs until infusion is discontinued - - Restart every 6 hour lab draws and follow instructions accordingly if PTT is outside of therapeutic range PTT results: PTT less than 46 seconds: Bolus if ordered (see PRN bolus order) , then INCREASE infusion dose by 3 (THREE) units/kg/hour PTT 46 - 55 seconds: Bolus if ordered (see PRN bolus order), then INCREASE infusion dose by 2 (TWO) units/kg/hour PTT 56 - 65 seconds: No bolus, INCREASE infusion dose by 1 (ONE) unit/kg/hour PTT 66 - 100 seconds (therapeutic): No??change PTT 101 - 110 seconds: No bolus, DECREASE infusion dose by 1 (ONE) unit/kg/hour PTT 111 - 120 seconds: Hold infusion for 30 minutes, then DECREASE infusion dose by 2 (TWO) units/kg/hour PTT greater than 120 seconds: Hold infusion for 1 hour, then DECREASE infusion dose by 3 (THREE) units/kg/hour , Indications: Venous ThrombosisIndications:Ve nous Thrombosis Rate/Dose Change 07/13/2024 7:25 AM CDT 15 Units/kg/hr 17.04 mL/hr New Bag 07/12/2024 4:18 PM CDT 14 Units/kg/hr 15.9 mL/h r Restarted 07/12/2024 7:16 AM CDT 14 Units/kg/hr 15.9 mL/h r insulin glargine (LANTUS, SEMGLEE) 100 unit/mL injection 18 Units 18 Units, subcutaneous, Every morning, First dose on 07/07/24 at 0900, Do not hold if NPO. Do not mix with other insulins, Indications: Diabetes MellitusIndications:Diabetes Mellitus Given 07/14/2024 9:03 AM CDT 18 Units Left Upper Abdomen Given 07/13/2024 9:32 AM CDT 18 Units Le ft Upper Abdomen Given 07/12/2024 10:25 AM CDT 18 Units L eft Lower Abdomen insulin glargine (LANTUS, SEMGLEE) 100 unit/mL injection 22 Units 22 Units, subcutaneous, Every morning, First dose (after last modification) on 07/15/24 at 0900, Do not hold if NPO. Do not mix with other insulins, Indications: Diabetes MellitusIndications:Diabetes Mellitus Given 07/18/2024 9:04 AM CDT 22 Units Left Lower Abdomen Given 07/17/2024 9:26 AM CDT 22 Units Ri ght Lower Abdomen Given 07/16/2024 9:17 AM CDT 22 Units Ri ght Upper Arm insulin glargine (LANTUS, SEMGLEE) 100 unit/mL injection 26 Units 26 Units, subcutaneous, Every morning, First dose (after last modification) on Rowena 07/19/24 at 0900, Do not hold if NPO. Do not mix with other insulins, Indications: Diabetes MellitusIndications:Diabetes Mellitus Given 08/02/2024 8:43 AM CDT 26 Units Left Lower Abdomen Given 08/01/2024 8:28 AM CDT 26 Units Le ft Lower Abdomen Given 07/31/2024 8:54 AM CDT 26 Units Ri ght Lower Abdomen insulin lispro (HumaLOG, ADMELOG) 100 unit/mL injection 0-10 Units 0-10 Units, subcutaneous, 3 times daily with meals, First dose on 07/11/24 at 1330, Blood glucose mg/dL: 149 or less: No insulin 150-199: add 2 unit 200-249: add 4 units 250-299: add 6 units 300-349: add 8 units and notify physician for adjustment of insulin orders. 350-399: add 10 units and notify physician for adjustment of insulin orders. Over 400: Notify physician for adjustment of insulin orders. Do NOT hold for NPO Status, Indications: Diabetes MellitusIndications:Diabetes Mellitus Given 08/02/2024 11:51 AM CDT 2 Units Left Lower Abdomen Given 08/01/2024 5:42 PM CDT 4 Units Ri ght Lower Abdomen Given 08/01/2024 12:34 PM CDT 4 Units R ight Lower Abdomen insulin lispro (HumaLOG, ADMELOG) 100 unit/mL injection 0-4 Units 0-4 Units, subcutaneous, Nightly, First dose on 07/07/24 at 2100, Blood glucose mg/dL: 199 or less: No insulin 200-249: add 1 unit 250-299: add 2 units 300-349: add 3 units and notify physician for adjustment of insulin orders. 350-399: add 4 units and notify physician for adjustment of insulin orders. Over 400: Notify physician for adjustment of insulin orders. Do NOT hold for NPO Status, Indications: Diabetes MellitusIndications:Diabetes Mellitus Given 07/09/2024 8:34 PM CDT 2 Units Left Lower Abdomen Given 07/07/2024 9:19 PM CDT 1 Units Le ft Lower Abdomen insulin lispro (HumaLOG, ADMELOG) 100 unit/mL injection 0-5 Units 0-5 Units, subcutaneous, 3 times daily with meals, First dose on 07/07/24 at 0800, Blood glucose mg/dL: 149 or less: No insulin 150-199: add 1 unit 200-249: add 2 units 250-299: add 3 units 300-349: add 4 units and notify physician for adjustment of insulin orders. 350-399: add 5 units and notify physician for adjustment of insulin orders. Over 400: Notify physician for adjustment of insulin orders. Do NOT hold for NPO Status, Indications: Diabetes MellitusIndications:Diabetes Mellitus Given 07/11/2024 10:43 AM CDT 2 Units Left Lower Abdomen Given 07/10/2024 3:11 PM CDT 1 Units Le ft Upper Arm Given 07/09/2024 5:38 PM CDT 3 Units Le ft Upper Abdomen insulin lispro (HumaLOG, ADMELOG) 100 unit/mL injection 0-5 Units 0-5 Units, subcutaneous, Nightly, First dose on 07/11/24 at 2100, Blood glucose mg/dL: 149 or less: No insulin 150-199: add 1 unit 200-249: add 2 units 250-299: add 3 units 300-349: add 4 units and notify physician for adjustment of insulin orders. 350-399: add 5 units and notify physician for adjustment of insulin orders. Over 400: Notify physician for adjustment of insulin orders. Do NOT hold for NPO Status, Indications: Diabetes MellitusIndications:Diabetes Mellitus Given 08/01/2024 8:58 PM CDT 1 Units Left Upper Arm Given 07/29/2024 9:40 PM CDT 3 Units Le ft Upper Arm Given 07/28/2024 9:07 PM CDT 4 Units Le ft Upper Arm insulin lispro (HumaLOG, ADMELOG) 100 unit/mL injection 11 Units 11 Units, subcutaneous, 3 times daily with meals, First dose (after last modification) on 07/14/24 at 1800, If BG greater than or equal to 100 mg/dL, give dose with meals when tray arrives in the room. If BG less than 100 mg/dL or history of poor intake, give after meals. If patient eating less than 50% of meal, call MD for holding or reducing meal insulin dose. Hold prandial insulin if NPO, unable to eat, or if BG less than 70 mg/dL., Indications: Diabetes MellitusIndications:Diabetes Mellitus Given 07/14/2024 5:50 PM CDT 11 Units Left Upper Arm insulin lispro (HumaLOG, ADMELOG) 100 unit/mL injection 11 Units 11 Units, subcutaneous, 3 times daily with meals, First dose (after last modification) on 07/22/24 at 1800, If BG greater than or equal to 100 mg/dL, give dose with meals when tray arrives in the room. If BG less than 100 mg/dL or history of poor intake, give after meals. If patient eating less than 50% of meal, call MD for holding or reducing meal insulin dose. Hold prandial insulin if NPO, unable to eat, or if BG less than 70 mg/dL., Indications: Diabetes MellitusIndications:Diabetes Mellitus Given 08/02/2024 11:51 AM CDT 11 Units Left Lower Abdomen Given 08/02/2024 8:42 AM CDT 11 Units Le ft Lower Abdomen Given 08/01/2024 5:41 PM CDT 11 Units Ri ght Lower Abdomen insulin lispro (HumaLOG, ADMELOG) 100 unit/mL injection 6 Units 6 Units, subcutaneous, 3 times daily with meals, First dose (after last modification) on 07/07/24 at 0800, If BG greater than or equal to 100 mg/dL, give dose with meals when tray arrives in the room. If BG less than 100 mg/dL or history of poor intake, give after meals. If patient eating less than 50% of meal, call MD for holding or reducing meal insulin dose. Hold prandial insulin if NPO, unable to eat, or if BG less than 70 mg/dL., Indications: Diabetes MellitusIndications:Diabetes Mellitus Given 07/09/2024 12:45 PM CDT 6 Units Left Upper Abdomen Given 07/08/2024 5:03 PM CDT 6 Units Ri ght Lower Abdomen Given 07/08/2024 12:34 PM CDT 6 Units L eft Lower Abdomen insulin lispro (HumaLOG, ADMELOG) 100 unit/mL injection 7 Units 7 Units, subcutaneous, 3 times daily with meals, First dose (after last modification) on 07/09/24 at 1800, If BG greater than or equal to 100 mg/dL, give dose with meals when tray arrives in the room. If BG less than 100 mg/dL or history of poor intake, give after meals. If patient eating less than 50% of meal, call MD for holding or reducing meal insulin dose. Hold prandial insulin if NPO, unable to eat, or if BG less than 70 mg/dL., Indications: Diabetes MellitusIndications:Diabetes Mellitus Given 07/11/2024 10:41 AM CDT 7 Units Left Lower Abdomen Given 07/10/2024 3:12 PM CDT 7 Units Le ft Upper Arm Given 07/09/2024 5:38 PM CDT 7 Units Le ft Upper Abdomen insulin lispro (HumaLOG, ADMELOG) 100 unit/mL injection 9 Units 9 Units, subcutaneous, 3 times daily with meals, First dose (after last modification) on 07/11/24 at 1800, If BG greater than or equal to 100 mg/dL, give dose with meals when tray arrives in the room. If BG less than 100 mg/dL or history of poor intake, give after meals. If patient eating less than 50% of meal, call MD for holding or reducing meal insulin dose. Hold prandial insulin if NPO, unable to eat, or if BG less than 70 mg/dL., Indications: Diabetes MellitusIndications:Diabetes Mellitus Given 07/14/2024 11:35 AM CDT 9 Units Left Lower Abdomen Given 07/14/2024 9:03 AM CDT 9 Units Le ft Lower Abdomen Given 07/13/2024 12:11 PM CDT 9 Units L eft Lower Abdomen insulin lispro (HumaLOG, ADMELOG) 100 unit/mL injection 9 Units 9 Units, subcutaneous, 3 times daily with meals, First dose (after last modification) on 07/15/24 at 0800, If BG greater than or equal to 100 mg/dL, give dose with meals when tray arrives in the room. If BG less than 100 mg/dL or history of poor intake, give after meals. If patient eating less than 50% of meal, call MD for holding or reducing meal insulin dose. Hold prandial insulin if NPO, unable to eat, or if BG less than 70 mg/dL., Indications: Diabetes MellitusIndications:Diabetes Mellitus Given 07/22/2024 12:18 PM CDT 9 Units Left Lower Abdomen Given 07/22/2024 8:46 AM CDT 9 Units Le ft Lower Abdomen Given 07/21/2024 12:27 PM CDT 9 Units L eft Lower Abdomen ioversoL (OPTIRAY 350) syringe 100 mL 100 mL, intravenous, Once in imaging, contrast, Starting on 07/16/24 at 1201, For 1 dose Contrast Given 07/16/2024 12:02 PM CDT 94 mL levothyroxine (SYNTHROID) tablet 75 mcg 75 mcg, oral, Daily (early AM), First dose on 07/07/24 at 0600, Administer on an empty stomach, preferably 30 minutes before breakfast. Take 4 hours apart from antacids, iron and calcium products. Separate from tube feeds, if applicable. Given 08/01/2024 5:09 AM CDT 75 mcg Given 07/31/2024 5:54 AM CDT 75 mcg Given 07/30/2024 5:45 AM CDT 75 mcg lidocaine (ASPERCREME) 4 % patch 1 patch 1 patch, transdermal, Administer over 12 Hours, Every 24 hours, First dose on Tue07/20/24 at 1530, Apply to affected area: back Medication Applied 08/02/2024 3:31 PM CDT 1 patch Back Medication Applied 08/01/2024 3:41 PM CDT 1 patch Back Medication Applied 07/31/2024 5:58 PM CDT 1 patch Back lidocaine (LMX) 4 % cream 1 Application 1 Application, topical, 4 times daily PRN, 2nd line for pain, for IV draws, Starting on Tue07/25/24 at 0358, Apply to affected area: arm, Laterality: Bilateral lidocaine (PF) (XYLOCAINE) 10 mg/mL (1 %) preservative free injection 10-20 mg 10-20 mg (1-2 mL), subcutaneous, Once, On 07/23/24 at 1630, For 1 dose, Administer to insertion site prior to procedure of local anesthesia. Administer volume needed to infiltrate site., Indications: Administration of Local AnesthesiaIndications:Administrat ion of Local Anesthesia Given 07/23/2024 6:00 PM CDT 10 mg Left Upper Arm magnesium oxide (MAG-OX) tablet 400 mg 400 mg, oral, Daily, First dose on 07/07/24 at 0900, 1 tablet = Magnesium oxide 400 mg = 241.3 mg elemental magnesium, Indications: hypomagnesemiaIndications:hypomag nesemia Given 07/25/2024 8:46 AM CDT 400 mg Given 07/24/2024 9:35 AM CDT 400 mg Given 07/23/2024 11:21 AM CDT 400 mg magnesium oxide (MAG-OX) tablet 800 mg 800 mg, oral, Daily, First dose (after last modification) on Rowena 07/26/24 at 0900, 1 tablet = Magnesium oxide 400 mg = 241.3 mg elemental magnesium, Indications: hypomagnesemiaIndications:hypomagnesemia Given 08/02/2024 8:41 AM CDT 800 mg Given 08/01/2024 8:26 AM CDT 800 mg Given 07/31/2024 8:57 AM CDT 800 mg magnesium sulfate 2 g/50 mL in water (premix) 2 g 2 g, intravenous, Administer over 60 Minutes, Once, On Tue07/11/24 at 0445, For 1 dose New Bag 07/11/2024 5:23 AM CDT 2 g magnesium sulfate 2 g/50 mL in water (premix) 2 g 2 g, intravenous, Administer over 60 Minutes, Once, On Tue07/14/24 at 0600, For 1 dose New Bag 07/14/2024 6:14 AM CDT 2 g magnesium sulfate 2 g/50 mL in water (premix) 2 g 2 g, intravenous, Administer over 60 Minutes, Once, On Tue07/15/24 at 0100, For 1 dose New Bag 07/15/2024 3:46 AM CDT 2 g magnesium sulfate 2 g/50 mL in water (premix) 2 g 2 g, intravenous, Administer over 60 Minutes, Once, On Tue07/16/24 at 0115, For 1 dose New Bag 07/16/2024 2:10 AM CDT 2 g magnesium sulfate 2 g/50 mL in water (premix) 2 g 2 g, intravenous, Administer over 60 Minutes, Once, On Tue07/23/24 at 2245, For 1 dose New Bag 07/23/2024 11:42 PM CDT 2 g magnesium sulfate 2 g/50 mL in water (premix) 2 g 2 g, intravenous, Administer over 60 Minutes, Once, On Tue07/30/24 at 0330, For 1 dose New Bag 07/30/2024 6:06 AM CDT 2 g metoprolol (LOPRESSOR) 5 mg/5 mL injection - ADS Override Pull Starting on Tue07/18/24 at 1433, For 1 dose, Created by cabinet override metoprolol (LOPRESSOR) injection 10 mg 10 mg, intravenous, Administer over 1 Minutes, Every 5 min PRN, other, heart rate reduction for study, Starting on Tue07/16/24 at 1138, For 1 hour, Administer during CT procedure only. Administer when heart rate remains over 60 and blood pressure is greater than 100/60. Max dose is 30mg. Given 07/16/2024 11:57 AM CDT 10 mg Given 07/16/2024 11:48 AM CDT 10 mg metoprolol (LOPRESSOR) injection 5 mg 5 mg, intravenous, Administer over 1 Minutes, Once, On Tue07/18/24 at 1515, For 1 dose Given 07/18/2024 2:47 PM CDT 5 m g metoprolol XL (TOPROL-XL) extended release tablet 100 mg 100 mg, oral, Daily, First dose (after last modification) on Tue07/27/24 at 0900, Tablets that are scored may be split, but do not crush, chew, dissolve, open or otherwise manipulate tablet/capsule. Given 08/02/2024 8:43 AM CDT 100 mg Given 08/01/2024 8:27 AM CDT 100 mg Given 07/31/2024 8:57 AM CDT 100 mg metoprolol XL (TOPROL-XL) extended release tablet 50 mg 50 mg, oral, Daily, First dose on 07/07/24 at 0900, Tablets that are scored may be split, but do not crush, chew, dissolve, open or otherwise manipulate tablet/capsule. Given 07/18/2024 9:04 AM CDT 50 m g Given 07/17/2024 9:25 AM CDT 50 mg Given 07/16/2024 9:16 AM CDT 50 mg metoprolol XL (TOPROL-XL) extended release tablet 75 mg 75 mg, oral, Daily, First dose (after last modification) on Rowena 07/19/24 at 0900, Tablets that are scored may be split, but do not crush, chew, dissolve, open or otherwise manipulate tablet/capsule. Given 07/26/2024 8:16 AM CDT 75 mg Given 07/25/2024 8:46 AM CDT 75 mg Given 07/24/2024 9:33 AM CDT 75 mg mirabegron ER (MYRBETRIQ) extended release tablet 25 mg 25 mg, oral, Daily, First dose on 07/07/24 at 0900, Do not crush, chew, cut, dissolve, open or otherwise manipulate tablet/capsule. Given 08/02/2024 8:42 AM CDT 25 mg Given 08/01/2024 8:26 AM CDT 25 mg Given 07/31/2024 8:56 AM CDT 25 mg nitroglycerin (NITROSTAT) sublingual tablet 0.8 mg 0.8 mg, sublingual, Once as needed, other, coronary artery vasodilation, Starting on 07/16/24 at 1138, For 1 hour, Administer during CT procedure only. Administer when blood pressure is greater than 100/60 and patient has not taken any vasodilator medication or has critical aortic stenosis. Given 07/16/2024 11:57 AM CDT 0.8 mg nortriptyline (PAMELOR) capsule 10 mg 10 mg, oral, Daily, First dose on 07/07/24 at 0900 Given 07/19/2024 9:41 AM CDT 10 mg Given 07/18/2024 9:04 AM CDT 10 mg Given 07/17/2024 9:26 AM CDT 10 mg nortriptyline (PAMELOR) capsule 10 mg 10 mg, oral, Nightly, First dose (after last modification) on Tue07/20/24 at 2100 Given 08/01/2024 8:58 PM CDT 10 mg Given 07/31/2024 9:56 PM CDT 10 mg Given 07/30/2024 8:01 PM CDT 10 mg OLANZapine (ZyPREXA) 5 mg in sterile water 1 mL (5 mg/mL) syringe 5 mg, intramuscular, Once, On 07/18/24 at 1500, For 1 dose, Reconstitute 10 mg vial with 2.1 mL SWFI. Resulting solution is ~5 mg/mL. Use immediately (within 1 hour) following reconstitution. Given 07/18/2024 2:44 PM CDT 5 mg Left Deltoid ondansetron (ZOFRAN) injection 4 mg 4 mg, intravenous, Administer over 2 Minutes, Every 6 hours PRN, nausea, vomiting, if not tolerating PO, Starting on 07/07/24 at 0013, Indications: Nausea and VomitingIndications:Nausea and Vomiting Given 07/25/2024 9:33 PM CDT 4 mg Given 07/25/2024 2:09 PM CDT 4 mg Given 07/13/2024 5:28 PM CDT 4 mg ondansetron ODT (ZOFRAN-ODT) disintegrating tablet 4 mg 4 mg, oral, Every 6 hours PRN, nausea, vomiting, Starting on 07/07/24 at 0013, Indications: Nausea and VomitingIndications:Nausea and Vomiting pantoprazole DR (PROTONIX) extended release tablet 20 mg 20 mg, oral, Daily, First dose on 07/07/24 at 0900, Do not crush, chew, cut, dissolve, open or otherwise manipulate tablet/capsule., Indications: Treatment of Non-Bleeding Gastric DisorderIndications:Treatment of Non-Bleeding Gastric Disorder Given 08/02/2024 8:42 AM CDT 20 mg Given 08/01/2024 8:27 AM CDT 20 mg Given 07/31/2024 8:57 AM CDT 20 mg perflutren lipid (DEFINITY) 1.5 mL in sodium chloride 0.9% 10 mL syringe 1-10 mL, intravenous, Once in imaging, contrast, Starting on 07/07/24 at 1306, For 1 dose, Intra-Procedure (CV) Contrast Given 07/07/2024 2:23 PM CD T 3 mL polyethylene glycol (MIRALAX) packet 17 g 17 g, oral, Daily PRN, constipation, Starting on 07/07/24 at 0013, Indications: constipationIndications:constipation Given 07/21/2024 2:22 PM CDT 17 g polyethylene glycol (MIRALAX) packet 17 g 17 g, oral, 2 times daily, First dose on 07/28/24 at 1215, Indications: constipationIndications:constipation Given 08/02/2024 8:42 AM CDT 17 g Given 08/01/2024 9:00 PM CDT 17 g Given 08/01/2024 8:25 AM CDT 17 g potassium chloride ER (KLOR-CON) extended release tablet 20 mEq 20 mEq, oral, Once, On 07/15/24 at 0100, For 1 dose, Tablets should not be crushed, chewed, dissolved, or otherwise manipulated. Capsules may be opened and sprinkled on a spoonful of applesauce or pudding, but the contents of the capsule should not be crushed or chewed. Given 07/15/2024 3:47 AM CDT 20 mEq potassium chloride ER (KLOR-CON) extended release tablet 20 mEq 20 mEq, oral, Once, On Tue07/17/24 at 2330, For 1 dose, Tablets should not be crushed, chewed, dissolved, or otherwise manipulated. Capsules may be opened and sprinkled on a spoonful of applesauce or pudding, but the contents of the capsule should not be crushed or chewed. Given 07/18/2024 1:59 AM CDT 20 mEq potassium chloride ER (KLOR-CON) extended release tablet 30 mEq 30 mEq, oral, Every 4 hours, First dose on Tue07/10/24 at 0645, For 2 doses, Total dose = 60 mEq Tablets should not be crushed, chewed, dissolved, or otherwise manipulated. Capsules may be opened and sprinkled on a spoonful of applesauce or pudding, but the contents of the capsule should not be crushed or chewed. Given 07/10/2024 3:13 PM CDT 30 mEq Given 07/10/2024 7:34 AM CDT 30 mEq potassium chloride ER (KLOR-CON) extended release tablet 30 mEq 30 mEq, oral, Once, On Tue07/25/24 at 2215, For 1 dose, Tablets should not be crushed, chewed, dissolved, or otherwise manipulated. Capsules may be opened and sprinkled on a spoonful of applesauce or pudding, but the contents of the capsule should not be crushed or chewed. Given 07/25/2024 11:28 PM CDT 30 mEq potassium chloride ER (KLOR-CON) extended release tablet 40 mEq 40 mEq, oral, Once, On Tue07/09/24 at 1415, For 1 dose, Tablets should not be crushed, chewed, dissolved, or otherwise manipulated. Capsules may be opened and sprinkled on a spoonful of applesauce or pudding, but the contents of the capsule should not be crushed or chewed. Given 07/09/2024 4:18 PM CDT 40 mEq potassium chloride ER (KLOR-CON) extended release tablet 40 mEq 40 mEq, oral, Once, On Tue07/11/24 at 2345, For 1 dose, Tablets should not be crushed, chewed, dissolved, or otherwise manipulated. Capsules may be opened and sprinkled on a spoonful of applesauce or pudding, but the contents of the capsule should not be crushed or chewed. Given 07/11/2024 11:41 PM CDT 40 mEq potassium chloride ER (KLOR-CON) extended release tablet 40 mEq 40 mEq, oral, Once, On Rowena 08/02/24 at 0030, For 1 dose, Tablets should not be crushed, chewed, dissolved, or otherwise manipulated. Capsules may be opened and sprinkled on a spoonful of applesauce or pudding, but the contents of the capsule should not be crushed or chewed. Given 08/02/2024 8:44 AM CDT 40 mEq ramelteon (ROZEREM) tablet 8 mg 8 mg, oral, Nightly PRN, sleep, Starting on 07/07/24 at 0013, Indications: Sleep-Onset InsomniaIndications:Sleep-Onset Insomnia Given 07/29/2024 9:34 PM CDT 8 mg Given 07/25/2024 8:06 PM CDT 8 mg Given 07/14/2024 9:34 PM CDT 8 mg sacubitriL-valsartan (ENTRESTO) 24-26 mg tablet 1 tablet 1 tablet, oral, 2 times daily, First dose on 07/07/24 at 0900, Indications: chronic heart failureIndications:chronic heart failure Given 08/02/2024 8:43 AM CDT 1 tablet Given 08/01/2024 8:58 PM CDT 1 tablet Given 08/01/2024 8:26 AM CDT 1 tablet senna-docusate (PERICOLACE) 8.6-50 mg per tablet 1 tablet 1 tablet, oral, 2 times daily, First dose on 07/07/24 at 0900 Given 08/02/2024 8:42 AM CDT 1 tablet Given 08/01/2024 8:58 PM CDT 1 tablet Given 08/01/2024 8:27 AM CDT 1 tablet sodium chloride 0.9% flush 0.5-20 mL 0.5-20 mL, intra-catheter, Every 8 hours scheduled, First dose on 07/07/24 at 0100, Flush volume based on line type and size. Given 08/01/2024 12:55 PM CDT 1 0 mL Given 07/31/2024 5:58 PM CDT 10 mL Given 07/30/2024 6:06 AM CDT 10 mL sodium chloride 0.9% flush 0.5-20 mL 0.5-20 mL, intra-catheter, As needed, line care, Starting on 07/07/24 at 0013, Flush volume based on line type and size. Flush before and after each use. sodium chloride 0.9% flush 0.5-20 mL 0.5-20 mL, intra-catheter, Every 8 hours scheduled, First dose on Tue07/25/24 at 1530, Pre-Procedure (IR), Flush volume based on line type and size. Given 08/02/2024 3:32 PM CDT 10 mL Given 08/01/2024 9:00 PM CDT 10 mL Given 08/01/2024 12:55 PM CDT 10 mL sodium chloride 0.9% flush 0.5-20 mL 0.5-20 mL, intra-catheter, As needed, line care, Starting on Tue07/25/24 at 1446, Pre-Procedure (IR), Flush volume based on line type and size. Flush before and after each use. sodium chloride 0.9% flush 5-10 mL 5-10 mL, intra-catheter, Every 12 hours scheduled, First dose on Tue07/23/24 at 2100, Flush volume based on line type, size, and protocol. Given 07/31/2024 8:58 AM CDT 10 mL Given 07/30/2024 8:43 AM CDT 10 mL Given 07/29/2024 9:45 PM CDT 10 mL sodium chloride 0.9% infusion 30 mL/hr, intravenous, Continuous, Starting on Tue07/10/24 at 1015, Pre-Procedure (CV) Rate/Dose Change 07/10/2024 11:46 AM CDT 100 mL/hr Rate/Dose Verify 07/10/2024 11:32 AM CDT 30 mL/ hr New Bag 07/10/2024 9:50 AM CDT 30 mL/hr 30 mL/hr sodium chloride 0.9% infusion 30 mL/hr, intravenous, Continuous, Starting on Tue07/27/24 at 1215 New Bag 07/27/2024 11:32 AM CDT 30 mL/hr 30 mL/hr spironolactone (ALDACTONE) split tablet 12.5 mg 12.5 mg, oral, Daily, First dose on 07/09/24 at 1230 Given 08/02/2024 8:42 AM CDT 12.5 mg Given 08/01/2024 8:27 AM CDT 12.5 mg Given 07/31/2024 8:56 AM CDT 12.5 mg tc-99m tetrofosmin (MYOVIEW) injection 20 millicurie 20 millicurie, intravenous, Once in imaging, radiopharmaceutical, Starting on Tue07/17/24 at 1518, For 1 dose, Indications: Diagnostic RadiographyIndications:Diagnostic Radiography Given 07/17/2024 3:32 PM CDT 23.17 millicuries documented in this encounter Discontinued Medications Medication Sig Discontinue Reason Start Date End Da te ondansetron (ZOFRAN) 4 mg tablet Take 1 tablet (4 mg total) by mouth every 6 (six) hours as needed for nausea or vomiting Error 06/26/2024 07/09/2024 insulin lispro (HumaLOG) 100 unit/mL pen for injection Inject 8 Units under the skin 3 (three) times a day with meals (plus blood glucose mg/dL 150-199: 2 units, 200-249: 4 units, 250-299: 6 units, 300-349: 8 units, 350 or greater: 10 units. Notify provider for blood glucose greater than 299 mg/dL. Max daily dose 60) Refer to After Visit Summary for Sliding Scale Insulin Instructions. 06/21/2024 08/02/2024 Farxiga 10 mg tablet Take 1 tablet (10 mg total) by mouth daily Stop Taking at Discharge 06/01/2022 08/02/2024 BASAGLAR 100 unit/mL (3 mL) pen for injection Inject 18 Units under the skin daily Stop Taking at Discharge 02/09/2024 08/02/2024 nortriptyline (PAMELOR) 10 mg capsule Take 1 capsule (10 mg total) by mouth daily Stop Taking at Discharge 05/18/2024 08/02/2024 potassium chloride ER 20 mEq CR tablet Take 1 tablet (20 mEq total) by mouth daily Stop Taking at Discharge 01/20/2024 08/02/2024 Entresto 24-26 mg tablet Take 0.5 tablets by mouth 2 (two) times a day Stop Taking at Discharge 06/21/2024 08/02/2024 metoprolol XL (TOPROL-XL) 50 mg extended release tablet Take 1 tablet (50 mg total) by mouth daily Stop Taking at Discharge 06/22/2024 08/02/2024 documented as of this encounter Active and Recently Administered Medications Times are shown in CDT. Scheduled Medication Order 07/31/2024 08/01/2024 08/02/2024 acetaminophen (TYLENOL) tablet 1,000 mg 1,000 mg, oral, Every 8 hours, First dose on Tue07/25/24 at 2000 0554 (Given - Provider: Sosa Logan RN)1211 (Given - Provider: Emily Root)2155 (Given - Provider: Sosa Logan RN) 0509 (Given - Provider: Sosa Logan RN)1235 (Given - Provider: Emily Root)2057 (Given - Provider: Marleen Mack RN) 0511 (Not Given - Provider: Marleen Mack RN - Reason: Patient/family refused)1150 (Given - Provider: Emily Root - Comment: back) apixaban (ELIQUIS) tablet 5 mg 5 mg, oral, Every 12 hours scheduled, First dose on Tue07/14/24 at 2100, Nurse to discontinue heparin infusion order and associated bolus at first administration of apixaban using ? order condition met? 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 Dalbavancin is not compatible with saline., [facility] appropriate use criteria for dalbavancin are limited to the following below options. It is recommended that therapy for infections outside of these indications be discussed with infectious diseases, if available. Facilitate early discharge by 10-14 days 1254 (New Bag - Provider: Emily Root) dextrose 5% water flush 10 mL (COMPLETED)(Linked Group 1) 10 mL, intravenous, Once, On Tue08/01/24 at 1215, For 1 dose, Flush line with D5W BEFORE each dose of dalbavancin (DALVANCE). 1254 (Given - Provider: Emily Root) dextrose 5% water flush 10 mL (COMPLETED)(Linked Group 1) 10 mL, intravenous, Once, On Tue08/01/24 at 1215, For 1 dose, Flush line with D5W AFTER each dose of dalbavancin (DALVANCE). 1256 (Given - Provider: Emily Root) escitalopram (LEXAPRO) tablet 10 mg 10 mg, oral, Daily, First dose on 07/07/24 at 0900 0857 (Given - Provider: Emily Root) 0826 (Given - Provider: Emily Root) 0843 (Given - Provider: Emily Root) furosemide (LASIX) tablet 40 mg 40 mg, oral, Daily, First dose on 07/07/24 at 0900 0856 (Given - Provider: Emily Root) 0827 (Given - Provider: Emily Root) 0843 (Given - Provider: Emily Root) insulin glargine (LANTUS, SEMGLEE) 100 unit/mL injection 26 Units 26 Units, subcutaneous, Every morning, First dose (after last modification) on Rowena 07/19/24 at 0900, Do not hold if NPO. Do not mix with other insulins, Indications: Diabetes Mellitus 0854 (Given - Provider: Emily Root) 0828 (Given - Provider: Emily Root) 0843 (Given - Provider: Emily Root) insulin lispro (HumaLOG, ADMELOG) 100 unit/mL injection 0-10 Units 0-10 Units, subcutaneous, 3 times daily with meals, First dose on Tue07/11/24 at 1330, Blood glucose mg/dL: 149 or less: No insulin 150-199: add 2 unit 200-249: add 4 units 250-299: add 6 units 300-349: add 8 units and notify physician for adjustment of insulin orders. 350-399: add 10 units and notify physician for adjustment of insulin orders. Over 400: Notify physician for adjustment of insulin orders. Do NOT hold for NPO Status, Indications: Diabetes Mellitus 0855 (Given - Provider: Emily oRot)1208 (Given - Provider: Emily Root)1800 (Given - Provider: Emily Root) 0828 (Given - Provider: Emily Root)1234 (Given - Provider: Emily Root)1742 (Given - Provider: Emily Root) 0843 (Not Given - Provider: Emily Root - Reason: Order parameters not met)1151 (Given - Provider: Emily Root) insulin lispro (HumaLOG, ADMELOG) 100 unit/mL injection 0-5 Units 0-5 Units, subcutaneous, Nightly, First dose on Tue07/11/24 at 2100, Blood glucose mg/dL: 149 or less: No insulin 150-199: add 1 unit 200-249: add 2 units 250-299: add 3 units 300-349: add 4 units and notify physician for adjustment of insulin orders. 350-399: add 5 units and notify physician for adjustment of insulin orders. Over 400: Notify physician for adjustment of insulin orders. Do NOT hold for NPO Status, Indications: Diabetes Mellitus 0020 (Not Given - Provider: Sosa Logan, BROWN - Reason: Patient/family refused)2057 (Given - Provider: Marleen Mack, BROWN) insulin lispro (HumaLOG, ADMELOG) 100 unit/mL injection 11 Units 11 Units, subcutaneous, 3 times daily with meals, First dose (after last modification) on Tue07/22/24 at 1800, If BG greater than or equal to 100 mg/dL, give dose with meals when tray arrives in the room. If BG less than 100 mg/dL or history of poor intake, give after meals. If patient eating less than 50% of meal, call MD for holding or reducing meal insulin dose. Hold prandial insulin if NPO, unable to eat, or if BG less than 70 mg/dL., Indications: Diabetes Mellitus 0855 (Given - Provider: Emily Root)1211 (Given - Provider: Emily Root)1759 (Given - Provider: Emily Root) 0829 (Given - Provider: Emily Root)1235 (Given - Provider: Emily Root)1741 (Given - Provider: Emily Root) 0842 (Given - Provider: Emily Root)1151 (Given - Provider: Emily Root) levothyroxine (SYNTHROID) tablet 75 mcg 75 mcg, oral, Daily (early AM), First dose on Tue07/07/24 at 0600, Administer on an empty stomach, preferably 30 minutes before breakfast. Take 4 hours apart from antacids, iron and calcium products. Separate from tube feeds, if applicable. 0554 (Given - Provider: Sosa Logan RN) 0509 (Given - Provider: Sosa Logan RN)0532 (Not Given - Provider: Sosa Logan RN - Reason: Other - Comment: given at 0509) 0512 (Not Given - Provider: Marleen Mack RN - Reason: Patient/family refused) lidocaine (ASPERCREME) 4 % patch 1 patch 1 patch, transdermal, Administer over 12 Hours, Every 24 hours, First dose on Tue07/20/24 at 1530, Apply to affected area: back 0553 (Medication Removed - Provider: Sosa Logan RN)1758 (Medication Applied - Provider: Emily Root) 0509 (Medication Removed - Provider: Sosa Logan RN)1541 (Medication Applied - Provider: Emily Root) 0255 (Medication Removed - Provider: Marleen Mack, BROWN)1531 (Medication Applied - Provider: Emily Root)1752 (Due: Medication Removed - Provider: Automatic Discharge Provider - Comment: Time automatically adjusted from order being discontinued) magnesium oxide (MAG-OX) tablet 800 mg 800 mg, oral, Daily, First dose (after last modification) on Rowena 07/26/24 at 0900, 1 tablet = Magnesium oxide 400 mg = 241.3 mg elemental magnesium, Indications: hypomagnesemia 0857 (Given - Provider: Emily Root) 0826 (Given - Provider: Emily Root) 0841 (Given - Provider: Emily Root) metoprolol XL (TOPROL-XL) extended release tablet 100 mg 100 mg, oral, Daily, First dose (after last modification) on Tue07/27/24 at 0900, Tablets that are scored may be split, but do not crush, chew, dissolve, open or otherwise manipulate tablet/capsule. 0857 (Given - Provider: Emily Root) 0827 (Given - Provider: Emily Root) 0843 (Given - Provider: Emily Root) mirabegron ER (MYRBETRIQ) extended release tablet 25 mg 25 mg, oral, Daily, First dose on 07/07/24 at 0900, Do not crush, chew, cut, dissolve, open or otherwise manipulate tablet/capsule. 0856 (Given - Provider: Emily Root) 0826 (Given - Provider: Emily Root) 0842 (Given - Provider: Emily Root) nortriptyline (PAMELOR) capsule 10 mg 10 mg, oral, Nightly, First dose (after last modification) on Tue07/20/24 at 2100 2156 (Given - Provider: Sosa Logan, BROWN) 2058 (Given - Provider: Marleen Mack, BROWN) pantoprazole DR (PROTONIX) extended release tablet 20 mg 20 mg, oral, Daily, First dose on 07/07/24 at 0900, Do not crush, chew, cut, dissolve, open or otherwise manipulate tablet/capsule., Indications: Treatment of Non-Bleeding Gastric Disorder 0857 (Given - Provider: Emily Root) 0827 (Given - Provider: Emily Root) 0842 (Given - Provider: Emily Root) polyethylene glycol (MIRALAX) packet 17 g 17 g, oral, 2 times daily, First dose on 07/28/24 at 1215, Indications: constipation 0858 (Given - Provider: Emily Root)2207 (Not Given - Provider: Sosa Logan RN - Reason: Patient/family refused) 0825 (Given - Provider: Emily Root)2099 (Given - Provider: Marleen Mack, BROWN) 0842 (Given - Provider: Emily Root) potassium chloride ER (KLOR-CON) extended release tablet 40 mEq (COMPLETED) 40 mEq, oral, Once, On Rowena 08/02/24 at 0030, For 1 dose, Tablets should not be crushed, chewed, dissolved, or otherwise manipulated. Capsules may be opened and sprinkled on a spoonful of applesauce or pudding, but the contents of the capsule should not be crushed or chewed. 0844 (Given - Provider: Emily Root - Comment: patient refused at that time) sacubitriL-valsartan (ENTRESTO) 24-26 mg tablet 1 tablet 1 tablet, oral, 2 times daily, First dose on 07/07/24 at 0900, Indications: chronic heart failure 0856 (Given - Provider: Emily Root)215 (Given - Provider: Sosa Logan RN) 0826 (Given - Provider: Emily Root)2057 (Given - Provider: Marleen Mack, BROWN) 0843 (Given - Provider: Emily Root) senna-docusate (PERICOLACE) 8.6-50 mg per tablet 1 tablet 1 tablet, oral, 2 times daily, First dose on 07/07/24 at 0900 0856 (Given - Provider: Emily Root)2156 (Given - Provider: Sosa Logan RN) 0827 (Given - Provider: Emily Root)2057 (Given - Provider: Marleen Mack, BROWN) 0842 (Given - Provider: Emily Root) sodium chloride 0.9% flush 0.5-20 mL 0.5-20 mL, intra-catheter, Every 8 hours scheduled, First dose on 07/07/24 at 0100, Flush volume based on line type and size. 0548 (Not Given - Provider: oSsa Logan RN - Reason: Other)1758 (Given - Provider: Emily Root)2214 (Not Given - Provider: Sosa Logan RN - Reason: Other) 0510 (Not Given - Provider: Sosa Logan RN - Reason: Other)1255 (Given - Provider: Emily Root)204 (Not Given - Provider: Marleen Mack RN - Reason: Other - Comment: 1 flushable line) 0512 (Not Given - Provider: Marleen Mack RN - Reason: Patient/family refused)1532 (Not Given - Provider: Emily Root - Reason: Loss of IV access) sodium chloride 0.9% flush 0.5-20 mL 0.5-20 mL, intra-catheter, Every 8 hours scheduled, First dose on Tue07/25/24 at 1530, Pre-Procedure (IR), Flush volume based on line type and size. 0548 (Not Given - Provider: Sosa Logan RN - Reason: Other)1758 (Given - Provider: Emily Root)2214 (Not Given - Provider: Sosa Logan RN - Reason: Patient/family refused) 0510 (Not Given - Provider: Sosa Logan RN - Reason: Other)1255 (Given - Provider: Emily Root)2100 (Given - Provider: Marleen Mack, BROWN) 0401 (Not Given - Provider: Marleen Mack RN - Reason: Other - Comment: 1 line)1532 (Given - Provider: Emily Root) sodium chloride 0.9% flush 5-10 mL (CANCELED) 5-10 mL, intra-catheter, Every 12 hours scheduled, First dose on Tue07/23/24 at 2100, Flush volume based on line type, size, and protocol. 0553 (Not Given - Provider: Sosa Logan RN - Reason: Other)0858 (Given - Provider: Emily Root) spironolactone (ALDACTONE) split tablet 12.5 mg 12.5 mg, oral, Daily, First dose on Tue07/09/24 at 1230 0856 (Given - Provider: Emily Root) 0827 (Given - Provider: Emily Root) 0842 (Given - Provider: Emily Root) PRN Medication Order 07/31/2024 08/01/2024 08/02/2024 calcium carbonate (TUMS) chewable tablet 500 mg 500 mg (200 mg of elemental calcium), oral, 3 times daily PRN, indigestion, Starting on 07/29/24 at 1143 Carrier Fluids for Secondary Infusion - 0.9% Sodium Chloride 30 mL, intravenous, As needed, For priming tubing and/or flushing, Starting on 07/07/24 at 0013, 0-250 ml/hr to flush line after IV infusions when no maintenance IV ordered. Infuse 30mL at the same rate as the secondary infusion. Run as primary IV, not intended for KVO. Carrier Fluids for Secondary Infusion - 0.9% Sodium Chloride 30 mL, intravenous, As needed, For priming tubing and/or flushing, Starting on 07/25/24 at 1446, Pre-Procedure (IR), 0-250 ml/hr to flush line after IV infusions when no maintenance IV ordered. Infuse 30mL at the same rate as the secondary infusion. Run as primary IV, not intended for KVO. cyclobenzaprine (FLEXERIL) tablet 5 mg 5 mg, oral, 3 times daily PRN, muscle spasms, Starting on 07/07/24 at 0110 dextrose (D10W) 10% bolus 250 mL(Linked Group 2) 250 mL, intravenous, at 1,000 mL/hr, Administer over 15 Minutes, Every 15 min PRN, blood glucose less than 70 mg/dL and UNABLE to swallow/take PO glucose/juice., Starting on 07/07/24 at 0108, After treatment for hypoglycemia, recheck BG followed by treatment every 15 minutes until the BG is greater than 100 mg/dL. Then check BG 1 hour post treatment. If BG is less than 100 mg/dL, repeat Q15 minute BG checks and treatment. Call MD for each episode of hypoglycemia., Indications: hypoglycemic disorder dextrose gel in packet 15 g(Linked Group 2) 15 g, oral, Every 15 min PRN, low blood sugar, blood glucose less than 70 mg/dL, Starting on 07/07/24 at 0108, If patient is alert and able to eat/drink, give 15 gm glucose or one juice (4 fluid ounces) NOT ORANGE JUICE. After treatment for hypoglycemia, recheck BG followed by treatment every 15 minutes until the BG is greater than 100 mg/dL. Then check BG 1 hour post-treatment. If BG is less than 100 mg/dL, repeat Q15 minute BG checks and treatment. Call MD for each episode of hypoglycemia., Indications: hypoglycemic disorder glucagon injection 1 mg 1 mg, intramuscular, Every 30 min PRN, low blood sugar, blood glucose less than 70 mg/dL AND no IV access AND unable to take PO glucose/juice., Starting on 07/07/24 at 0108, After Glucagon is administered, position patient on side if possible to avoid aspiration. Obtain IV access. Follow glucagon treatment with glucose treatment or IV dextrose. After treatment for hypoglycemia, recheck BG followed by treatment every 15 minutes until the BG is greater than 100 mg/dL. Then check BG 1 hour post treatment. If BG is less than 100 mg/dL, repeat Q15 minute BG checks and treatment. Call MD for each episode of hypoglycemia. Reconstitute 1 mg vial with 1 mL SWFI. Use immediately following reconstitution. lidocaine (LMX) 4 % cream 1 Application 1 Application, topical, 4 times daily PRN, 2nd line for pain, for IV draws, Starting on Tue07/25/24 at 0358, Apply to affected area: arm, Laterality: Bilateral ondansetron (ZOFRAN) injection 4 mg(Linked Group 3) 4 mg, intravenous, Administer over 2 Minutes, Every 6 hours PRN, nausea, vomiting, if not tolerating PO, Starting on 07/07/24 at 0013, Indications: Nausea and Vomiting ondansetron ODT (ZOFRAN-ODT) disintegrating tablet 4 mg(Linked Group 3) 4 mg, oral, Every 6 hours PRN, nausea, vomiting, Starting on 07/07/24 at 0013, Indications: Nausea and Vomiting polyethylene glycol (MIRALAX) packet 17 g 17 g, oral, Daily PRN, constipation, Starting on 07/07/24 at 0013, Indications: constipation ramelteon (ROZEREM) tablet 8 mg 8 mg, oral, Nightly PRN, sleep, Starting on 07/07/24 at 0013, Indications: Sleep-Onset Insomnia sodium chloride 0.9% flush 0.5-20 mL 0.5-20 mL, intra-catheter, As needed, line care, Starting on 07/07/24 at 0013, Flush volume based on line type and size. Flush before and after each use. sodium chloride 0.9% flush 0.5-20 mL 0.5-20 mL, intra-catheter, As needed, line care, Starting on Tue07/25/24 at 1446, Pre-Procedure (IR), Flush volume based on line type and size. Flush before and after each use. Linked Groups Order Group 1: dalbavancin (DALVANCE) 1,500 mg in dextrose 5% 500 mL IVPB (COMPLETED)Jump to med 1,500 mg, intravenous, at 986 mL/hr, Administer over 35 Minutes, Once, On Tue08/01/24 at 1215, For 1 dose, Flush existing line with D5W before and after infusion of dalbavancin. Dalbavancin is not compatible with saline., [facility] appropriate use criteria for dalbavancin are limited to the following below options. It is recommended that therapy for infections outside of these indications be discussed with infectious diseases, if available. Facilitate early discharge by 10-14 days And dextrose 5% water flush 10 mL (COMPLETED)Jump to med 10 mL, intravenous, Once, On Tue08/01/24 at 1215, For 1 dose, Flush line with D5W BEFORE each dose of dalbavancin (DALVANCE). And dextrose 5% water flush 10 mL (COMPLETED)Jump to med 10 mL, intravenous, Once, On Tue08/01/24 at 1215, For 1 dose, Flush line with D5W AFTER each dose of dalbavancin (DALVANCE). Group 2: dextrose gel in packet 15 gJump to med 15 g, oral, Every 15 min PRN, low blood sugar, blood glucose less than 70 mg/dL, Starting on 07/07/24 at 0108, If patient is alert and able to eat/drink, give 15 gm glucose or one juice (4 fluid ounces) NOT ORANGE JUICE. After treatment for hypoglycemia, recheck BG followed by treatment every 15 minutes until the BG is greater than 100 mg/dL. Then check BG 1 hour post-treatment. If BG is less than 100 mg/dL, repeat Q15 minute BG checks and treatment. Call MD for each episode of hypoglycemia., Indications: hypoglycemic disorder Or dextrose (D10W) 10% bolus 250 mLJump to med 250 mL, intravenous, at 1,000 mL/hr, Administer over 15 Minutes, Every 15 min PRN, blood glucose less than 70 mg/dL and UNABLE to swallow/take PO glucose/juice., Starting on 07/07/24 at 0108, After treatment for hypoglycemia, recheck BG followed by treatment every 15 minutes until the BG is greater than 100 mg/dL. Then check BG 1 hour post treatment. If BG is less than 100 mg/dL, repeat Q15 minute BG checks and treatment. Call MD for each episode of hypoglycemia., Indications: hypoglycemic disorder Group 3: ondansetron ODT (ZOFRAN-ODT) disintegrating tablet 4 mgJump to med 4 mg, oral, Every 6 hours PRN, nausea, vomiting, Starting on 07/07/24 at 0013, Indications: Nausea and Vomiting Or ondansetron (ZOFRAN) injection 4 mgJump to med 4 mg, intravenous, Administer over 2 Minutes, Every 6 hours PRN, nausea, vomiting, if not tolerating PO, Starting on 07/07/24 at 0013, Indications: Nausea and Vomiting documented in this encounter Orders Medications Ordered That Didier ht Not Have Been Administered Count Last Ordered Date First Ordered Date magnesium sulfate 2 g/50 mL in water (premix) 2 g 2 07/29/2024 07/17/2024 lidocaine (LMX) 4 % cream 1 Application 2 1 07/12/2024 sodium chloride 0.9% flush 0.5-20 mL 3 07/1007/07/2024 sodium chloride 0.9% infusion 1 07/25/2024 sodium chloride 0.9% flush 5-20 mL 1 2023 clonazePAM (KlonoPIN) disint egrating tablet 0.25 mg 2 07/22/2024 07/19/2024 magnesium oxide (MAG-OX) tablet 400 mg 1 apixaban (ELIQUIS) tablet 5 mg 1 07/14/2024 insulin lispro (HumaLOG, ADM ELOG) 100 unit/mL injection 10 Units 2 07/14/2024 07/07/2024 rivaroxaban (XARELTO) tablet 20 mg 2 202307/07/2024 BUPivacaine (MARCAINE) 0.25 % (2.5 mg/mL) preservative free injection 1 07/13/2024 Carrier Fluids for Secondary Infusion - 0.9% Sodium Chloride 2 07/13/2024 07/07/2024 fentaNYL (SUBLIMAZE) preserv ative free injection 50 mcg 1 07/13/2024 haloperidol (HALDOL) injection 0.5 mg 1 01/2024 HYDROmorphone (DILAUDID) injection 0.5 mg 1 07/13/2024 Lactated Ringer's (LR) infusion 1 naloxone (NARCAN) 0.4 mg/mL injection 0.04-0.4 mg 1 07/13/2024 norepinephrine in dextrose 5 % (LEVOPHED) 8,000 mcg/250 mL (32 mcg/mL) infusion (premix) 1 07/13/2024 oxyCODONE (ROXICODONE) tablet 5 mg 1 2023 carvediloL (COREG) tablet 25 mg 1 dextrose (D10W) 10% bolus 250 mL 1 07/07/20 dextrose gel in packet 15 g 1 07/07/2024 heparin 1,000 unit/mL inject ion 9,100 Units 1 07/07/2024 metoprolol XL (TOPROL-XL) ex tended release tablet 50 mg 1 07/07/2024 ondansetron ODT (ZOFRAN-ODT) disintegrating tablet 4 mg 1 07/07/2024 Lab Orders Without Results Count Last Ordered D ate First Ordered Date POCT GLUCOSE DEVICE 125 08/02/2024 07/07/20 24 CBC WITH AUTO DIFFERENTIAL 3 07/30/2024 1 PROTIME-INR 1 07/14/2024 MAGNESIUM 3 07/13/2024 07/11/2024 HIV 1/2 ANTIBODY PLUS P24 ANTIGEN 1 024 BASIC METABOLIC PANEL 1 07/07/2024 HEMOGLOBIN A1C 1 07/07/2024 General Supply Count Last Ordered Date First Or dered Date WEARABLE CARDIOVERTER DEFIBRILLATOR 1 07/31 Nursing Count Last Ordered Date First Orde red Date TELEMETRY MONITORING 4 07/26/2024 024 Consult Count Last Ordered Date First Orde red Date IP CONSULT TO VASCULAR ACCESS TEAM 2 2023 IP CONSULT TO PSYCHIATRY 1 07/18/2024 IP CONSULT TO VASCULAR SURGERY 1 07/11/2024 CONSULT TO GENERAL INFECTIOUS DISEASE 1 IP CONSULT TO ELECTROPHYSIOLOGY 1 Admission Count Last Ordered Date First Orde red Date ADMIT TO INPATIENT 1 07/07/2024 Discharge Count Last Ordered Date First Orde red Date DISCHARGE PATIENT 1 08/02/2024 CORE MEASURES Count Last Ordered Date First Ord ered Date REASON FOR NO VTE PROPHYLAXIS AT ADMISSION 1 07/07/2024 Case Request Count Last Ordered Date First Orde red Date CASE REQUEST OPERATING ROOM 1 07/12/2024 ADT Patient Update Count Last Ordered Date Firs t Ordered Date PROVIDER TREATMENT TEAM 1 07/07/2024 documented in this encounter Additional Health Concerns Infection Onset Date Last Indicated Resolved Time Ring Surveillance Comment:[id number] NDM-1 07/20/2024 07/20/2024 08/03/2024 3:05 AM C DT documented as of this encounter Care Teams Fire Crew Specialist Relationship Specialty Start Date End Date Oswalod Serrano MD [address] [address] PCP - General Family Medicine 04/14/18 [place] [id number] [address] Consulting Physician Cardiology 06/08/24 Sandro Hong MD [address] [place] [address] Referring Physician Cardiology 06/21/24 documented as of this encounter
--- OUTSIDE RECORDS SUMMARY | 2024-10-07 00:51 | XMS_ITS | Encounter Summary ---
Author Organization [facility] Healthcare Address [address] [place] [address] Care Team Providers Care Agriculture Technician Name Role Phone Oswaldo Serrano MD Primary Care Provider [phone] Pastora Flores MD Unavailable Sandro Hong MD Unavailable Reason for Visit * Auth/Cert (Routine) Specialty Diagnoses / Procedures Referred By Contac t Referred To Contact Diagnoses Osteomyelitis (HCC) Lower Back Pain Procedures N/A Referral ID Status Reason Start Date Expiration Date Visits Re quested Visits Authorized [id number] 1 1 Encounter Details Date Type Department Care Team (Late st Contact Info) Description 07/27/2024 1:22 PM CDT Anesthesia Event [facility] [address] [place] [address] Suzanne Hernandez MD [address] [place] [address] Madhavi Ramsey CRNA [address] [place] [address] Anesthesia Record Procedure Summary Procedure Name Responsible Anesthesiologist Anesthesia Start Time Anesthesia Stop Time TRANSESOPHAGEAL ECHO (CHANCE) W DOPPLER/CF Suzanne Hernandez MD 07/27/24 1322 07/27/24 1442 Events Date Time Event Comment 07/27/2024 1322 An Start 1322 An Start Data 1323 An Data Art 1334 Start Supplemental O2 1336 Bite Block Placed 1338 An Induction The patient was reevaluated immediately before moderate or deep sedation use and before anesthesia induction. 1346 Anesthesia Ready 1441 an stop data 1442 Handoff to RN I completed my handoff to the receiving nurse during which we: 1. Patient identified 2. Responsible provider identified 3. Pertinent medical history reviewed 4. Procedure type and surgical course discussed 5. Intraoperative anesthetic management and any significant issues discussed 6. Expectations and concerns for postop period discussed 7. Questions solicited from receiving nurse 8. Patient disposition at the time of handoff: other 1442 An Stop Meds Name Total lidocaine (cardiac) syringe 2 % 100 mg propofol 170 mg propofol 230.66 mg phenylephrine 100 mcg/mL 100 mcg phenylephrine infusion (100 mcg/mL) 2.1 mg * Agents Name O2% N2O O2 * Blood No blood administrations on file. Lines, Drains, and Airways Type Details Placement Removal Wound 07/13/24; 1742; Ches t; Left; ICD removal site 07/13/24 1742 by Naa Tapia RN Peripheral IV Placement Date: 07/10 06/02; Placement Time: 0859; Catheter Size: 22 G; Orientation: Posterior, Right; Location: Hand; Site Prep: Chlorhexidine; Technique: Anatomical landmarks; Inserted by: Karime; Removal Date: 08/01/24; Removal Time: 1400; Removal Reason: Occluded 07/27/24 0859 by Karime Ruth RN 08/01/24 1400 by Emily Root Peripheral IV Placement Date: 07/10 06/02; Placement Time: 1344 (created via procedure documentation); Catheter Size: 20 G; Site Prep: Chlorhexidine; Insertion Attempts: 1; Removal Date: 07/28/24; Removal Time: 2316; Removal Reason: Removed by patient 07/27/24 1344 by Madhavi Ramsey CRNA 07/28/24 2316 by Rony Naylor RN documented in this encounter Social History Tobacco Use Types Packs/Day Years Used Date Smoking Tobacco: Never Smokeless Tobacco: Never [employer] Answer Date Recorded In the past 12 months has [employer], oil, or water [employer] threatened to shut off services in your [...] often do you attend chur ch or mormon services? Never 07/07/2024 Do you belong to [...] any time in the past 12 m [facility], were you homeless or living in a [facility] (including now)? No 07/07/2024 Personal Safety Answer Date Recorded Have you ever been in or are you currently in a harmful physical or emotional relationship or is someone making you feel afraid or unsafe? 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 Gender Identity Not on file Sexual Orientation Not on file documented as of this encounter OR Notes * Anesthesia Postprocedure Evaluation - Suzanne Hernandez MD - 07/27/2024 3:39 PM CDT Patient: Loretta Penn Procedure Summary Date: 07/27/24 Room / Location: [facility] Anesthesia Start: 1322 Anesthesia Stop: 1442 Procedure: TRANSESOPHAGEAL ECHO (CHANCE) W DOPPLER/CF Diagnosis: Scheduled Providers: Suzanne Hernandez MD Responsible Provider: Suzanne Hernandez MD Anesthesia Type: MAC ASA Status: 3 Anesthesia Type: MAC Last vitals BP 102/70 (BP Location: Left arm, Patient Position: Lying) Pulse 90 Temp 36.6 ??C (97.9 ??F) (Oral) Resp 20 SpO2 96% Anesthesia Post Evaluation Patient location: [facility]. Patient participation: complete - patient participated Level of consciousness: fully awake Pain management: adequate Airway patency: adequate Evidence of recall: no Cardiovascular status: acceptable Respiratory status: acceptable Hydration status: acceptable Pt is: normothermic Nausea/Vomiting status: none No notable events documented. * Anesthesia Procedure Notes - Madhavi Ramsey CRNA - 07/27/2024 1:43 PM CDTAssociated Order(s): Peripheral IV Catheter Peripheral IV Catheter Patient location: OR Staff: Supervising provider: Suzanne Hernandez MD Placed by: Anesthesiologist: Suzanne Hernandez MD Preprocedure prep: Prep solution: chlorhexadine PPE: gloves and provider hat/mask PIV line: Catheter size: 20 g Technique: direct visualization Procedure details: good blood return and occlusive dressing applied Number of attempts: 1 Assessment: Events: patient tolerated procedure well with no complications * Anesthesia Preprocedure Evaluation - Suzanne Hernandez MD - 07/27/2024 12:55 PM CDT Images from the original note were not included. Anesthesia Evaluation Loretta Penn is a 63 y.o. female TRANSESOPHAGEAL ECHO (CHANCE) W DOPPLER/CF Pre-Op Diagnosis Codes: * Acute bacterial endocarditis [I33.0] Patient Active Problem List Diagnosis Date Noted Osteomyelitis ([facility]) 07/07/2024 Ventricular tachycardia ([facility]) 06/11/2024 Chronic diastolic congestive heart failure ([facility]) ([facility]) 06/11/2024 Endocarditis 06/11/2024 Urinary frequency 06/11/2024 Gastroesophageal reflux disease without esophagitis 06/11/2024 Paroxysmal atrial fibrillation ([facility]) ([facility]) 06/11/2024 Major depressive disorder 06/11/2024 CKD (chronic kidney disease) 06/11/2024 Traumatic hematoma of right upper arm 06/06/2024 Hypotension due to drugs 06/06/2024 SOB (shortness of breath) 05/30/2024 Acute on chronic systolic congestive heart failure ([facility]) ([facility]) 05/30/2024 Neck pain 05/30/2024 Hyponatremia 05/30/2024 Chronic a-fib ([facility]) ([facility]) 05/30/2024 Controlled type 2 diabetes mellitus with chronic kidney disease, with long-term current use of insulin ([facility]) 05/30/2024 Hypothyroidism 05/30/2024 JOSE (obstructive sleep apnea) 05/30/2024 Diabetes mellitus with hyperglycemia ([facility]) 05/30/2024 Endocarditis 05/29/2024 Past Medical History: Diagnosis Date A-fib ([facility]) ([facility]) CHF (congestive heart failure) ([facility]) ([facility]) Diabetes mellitus ([facility]) GERD (gastroesophageal reflux disease) Hypertension Intellectual disability OAB (overactive bladder) Sleep apnea Thyroid disease Past Surgical History: Procedure Laterality Date CARDIAC DEFIBRILLATOR PLACEMENT CHOLECYSTECTOMY INSERT / REPLACE / REMOVE PACEMAKER IR PICC LINE PLACEMENT > 5 YEARS N/A 06/05/2024 OTHER SURGICAL HISTORY 05/31/2024 CHANCE/CARDIOVERSION OB History No obstetric history on file. Allergies Allergen Reactions Sulfa (Sulfonamide Antibiotics) Med List Status: Pharmacy Complete Set By: Ashley Travis [facility] at 07/09/2024 12:55 PM Taking? Last Dose Start Date End Date Provider albuterol HFA (PROVENTIL HFA,VENTOLIN HFA,PROAIR HFA) 90 mcg/actuation inhaler -- -- -- Nica Muniz MD BASAGLAR 100 unit/mL (3 mL) pen for injection -- 02/09/24 -- Nica Muniz MD cholecalciferol (VITAMIN D-3) 5,000 unit tablet -- -- -- Nica Muniz MD docusate sodium (COLACE) 100 mg capsule -- 09/23/17 -- Nica Muniz MD Entresto 24-26 mg tablet -- 06/21/24 -- Nancy Hartley MD Take 0.5 tablets by mouth 2 (two) times a day escitalopram (LEXAPRO) 10 mg tablet -- 12/12/23 -- Nica Munzi MD Farxiga 10 mg tablet -- 06/01/22 -- Nica Muniz MD ferrous sulfate 325 mg (65 mg of elemental iron) tablet -- -- -- Nica Muniz MD fluticasone propionate (FLONASE) 50 mcg/actuation nasal spray -- -- -- Nica Muniz MD Gemtesa 75 mg tablet -- -- -- Nica Muniz MD insulin lispro (HumaLOG) 100 unit/mL pen for injection -- 06/21/24 -- Nancy Hartley MD Inject 8 Units under the skin 3 (three) times a day with meals (plus blood glucose mg/dL 150-199: 2units, 200-249: 4 units, 250-299: 6 units, 300-349: 8 units, 350 or greater: 10 units. Notify provider for blood glucose greater than 299 mg/dL. Max daily dose 60) Refer to After Visit Summary for Sliding Scale Insulin Instructions. Notes: OK combine base prandial & SSI orders. May sub alternate covered rapid- acting insulin inpen/vial. If sub vial, OK sub appropriate volume SUBQ syringe. If sub pen, OK sub appropriately sized pen needles. levothyroxine (SYNTHROID) 75 mcg tablet -- -- -- Nica Muniz MD magnesium oxide (MAG-OX) 400 mg (241.3 mg elemental magnesium) tablet () -- 06/22/24 07/22/24 Nancy Hartley MD Take 1 tablet (400 mg total) by mouth daily metoprolol XL (TOPROL-XL) 50 mg extended release tablet () -- 06/22/24 07/22/24 Nancy Hartley MD Take 1 tablet (50 mg total) by mouth daily midodrine (PROAMATINE) 5 mg tablet -- 06/21/24 -- Nancy Hartley MD Take 1 tablet (5 mg total) by mouth 2 (two) times a day as needed (if systolic blood pressure less than 90mmHg) multivit jyipyjhs-kibr-UJ-calcium (THERA-M) 9 mg iron-400 mcg tablet -- -- -- Nica Muniz MD nortriptyline (PAMELOR) 10 mg capsule -- 05/18/24 -- Nica Muniz MD omeprazole (PriLOSEC) 20 mg capsule -- -- -- Nica Muniz MD pen needle, diabetic 32 gauge x 5/32 needle -- 06/21/24 -- Nancy Hartley MD Use as directed 3 times a day. Notes: May substitute one size up or down as is available. potassium chloride ER 20 mEq CR tablet -- 01/20/24 -- Nica Muniz MD Xarelto 20 mg tablet -- -- -- Nica Muniz MD Current Facility-Administered Medications: acetaminophen (TYLENOL) tablet 1,000 mg, 1,000 mg, oral, Q8H, 1,000 mg at 07/27/24 0500 apixaban (ELIQUIS) tablet 5 mg, 5 mg, oral, Q12H GALINA, 5 mg at 07/27/24 09 Carrier Fluids for Secondary Infusion - 0.9% Sodium Chloride, 30 mL, intravenous, PRN Carrier Fluids for Secondary Infusion - 0.9% Sodium Chloride, 30 mL, intravenous, PRN, 30 mL at 07/25/24 1621 cefadroxil (DURICEF) 500 mg capsule 1,000 mg, 1,000 mg, oral, BID, 1,000 mg at 07/27/24 09 cyclobenzaprine (FLEXERIL) tablet 5 mg, 5 mg, oral, TID PRN, 5 mg at 07/23/24 1133 dextrose gel in packet 15 g, 15 g, oral, Q15 Min PRN OR dextrose (D10W) 10% bolus 250 mL, 250 mL, intravenous, Q15 Min PRN escitalopram (LEXAPRO) tablet 10 mg, 10 mg, oral, Daily, 10 mg at 07/27/24 09 furosemide (LASIX) tablet 40 mg, 40 mg, oral, Daily, 40 mg at 07/27/24 0901 glucagon injection 1 mg, 1 mg, intramuscular, Q30 Min PRN, 1 mg at 07/21/24 1420 insulin glargine (LANTUS, SEMGLEE) 100 unit/mL injection 26 Units, 26 Units, subcutaneous, QAM, 26 Units at 07/27/24 09 insulin lispro (HumaLOG, ADMELOG) 100 unit/mL injection 0-10 Units, 0-10 Units, subcutaneous, TID with meals, 4 Units at 07/27/24 0910 insulin lispro (HumaLOG, ADMELOG) 100 unit/mL injection 0-5 Units, 0-5 Units, subcutaneous, Nightly, 3 Units at 07/26/24 2107 insulin lispro (HumaLOG, ADMELOG) 100 unit/mL injection 11 Units, 11 Units, subcutaneous, TID with meals, 11 Units at 07/26/24 0817 levothyroxine (SYNTHROID) tablet 75 mcg, 75 mcg, oral, Daily - 0600, 75 mcg at 07/27/24 0615 lidocaine (ASPERCREME) 4 % patch 1 patch, 1 patch, transdermal, Q24H, 1 patch at 07/25/24 162 lidocaine (LMX) 4 % cream 1 Application, 1 Application, topical, QID PRN magnesium oxide (MAG-OX) tablet 800 mg, 800 mg, oral, Daily, 800 mg at 07/27/24900 metoprolol XL (TOPROL-XL) extended release tablet 100 mg, 100 mg, oral, Daily, 100 mg at 07/27/24901 mirabegron ER (MYRBETRIQ) extended release tablet 25 mg, 25 mg, oral, Daily, 25 mg at 07/27/24900 nortriptyline (PAMELOR) capsule 10 mg, 10 mg, oral, Nightly, 10 mg at 07/26/242104 ondansetron ODT (ZOFRAN-ODT) disintegrating tablet 4 mg, 4 mg, oral, Q6H PRN OR ondansetron (ZOFRAN) injection 4 mg, 4 mg, intravenous, Q6H PRN, 4 mg at 07/25/242132 pantoprazole DR (PROTONIX) extended release tablet 20 mg, 20 mg, oral, Daily, 20 mg at 07/27/24900 polyethylene glycol (MIRALAX) packet 17 g, 17 g, oral, Daily PRN, 17 g at 07/21/24 142 ramelteon (ROZEREM) tablet 8 mg, 8 mg, oral, Nightly PRN, 8 mg at 07/25/242005 sacubitriL-valsartan (ENTRESTO) 24-26 mg tablet 1 tablet, 1 tablet, oral, BID, 1 tablet at senna-docusate (PERICOLACE) 8.6-50 mg per tablet 1 tablet, 1 tablet, oral, BID, 1 tablet at 07/26/242104 sodium chloride 0.9% flush 0.5-20 mL, 0.5-20 mL, intra-catheter, Q8H GALINA, 10 mL at 07/27/24 0537 sodium chloride 0.9% flush 0.5-20 mL, 0.5-20 mL, intra-catheter, PRN sodium chloride 0.9% flush 0.5-20 mL, 0.5-20 mL, intra-catheter, Q8H GALINA, 10 mL at 07/27/24 0537 sodium chloride 0.9% flush 0.5-20 mL, 0.5-20 mL, intra-catheter, PRN sodium chloride 0.9% flush 5-10 mL, 5-10 mL, intra-catheter, Q12H GALINA, 10 mL at 07/26/24 210 sodium chloride 0.9% flush 5-20 mL, 5-20 mL, intra-catheter, PRN sodium chloride 0.9% infusion, 30 mL/hr, intravenous, Continuous, Last Rate: 30 mL/hr at 07/27/24 1132, 30 mL/hr at 07/27/24 1132 spironolactone (ALDACTONE) split tablet 12.5 mg, 12.5 mg, oral, Daily, 12.5 mg at 07/27/24 0902 Social History Tobacco Use Smoking Status Never Smokeless Tobacco Never Alcohol Use: Not At Risk (07/25/2024) AUDIT-C Frequency of Alcohol Consumption: Never Average Number of Drinks: Patient does not drink Frequency of Binge Drinking: Never Substance and Sexual Activity Drug Use Not on file No family history on file. Vitals: 07/27/24 0849 07/27/24 1100 07/27/24 1144 BP: 111/67 115/61 152/72 Pulse: 96 89 83 Resp: 20 27 20 Temp: 36.3 ??C (97.3 ??F) 36.7 ??C (98.1 ??F) 36.6 ??C (97.9 ??F) SpO2: 94% 93% 99% PT: 07/24/2024: 13.2 sec (H) INR: 07/24/2024: 1.22 (H) APTT: 07/14/2024: 27 sec (L) Hgb A1C: 07/07/2024: 7.7 % (H) CBC RBC: 07/25/2024: 3.92 M/cumm RDW: No results found for requested labs within last 30 days. MCHC: 07/25/2024: 33.4 g/dL MCH: 07/25/2024: 32.4 pg MCV: 07/25/2024: 96.9 fL (H) Hct: 07/25/2024: 38.0 % Hgb: 07/25/2024: 12.7 g/dL WBC: 07/25/2024: 10.5 K/cumm (H) MPV: 07/25/2024: 9.4 fL Platelets: 07/25/2024: 332 K/cumm RDW CV: 07/25/2024: 12.7 % RDW Sd: 07/25/2024: 44.7 fL BMP Glucose: 07/27/2024: 208 mg/dL (H) Calcium: 07/25/2024: 9.7 mg/dL Sodium: 07/25/2024: 139 mmol/L Potassium: 07/25/2024: 3.8 mmol/L CO2: 07/25/2024: 37 mmol/L (H) Chloride: 07/25/2024: 99 mmol/L BUN: 07/25/2024: 14 mg/dL Creatinine: 07/25/2024: 0.71 mg/dL STOP-Bang Total Score: 4 Short Blessed Total Score: 19 DOS Physical Exam Medical history, medications, and allergies reviewed. Attestation: This PAT evaluation 07/27/2024. Airway Exam: Mallampati: II Cervical ROM: FROM TM distance: normal Cardiovascular Exam: Rate: regular Rhythm: regular Pulmonary Exam: LCTA Dental Exam: Missing Current state: Patient's current state is cooperative and interactive. Anesthesia Plan ASA 3 My patient is approved for the Anesthesia Controlled Medication protocol when under care of a SUSTAINABLE DEVELOPMENT POLICY ANALYST Planned anesthesia: MAC Induction: Induction: intravenous. Postoperative Plan: No plan for postoperative opioid use. No postoperative mechanical ventilation intended. Informed Consent: Discussed plan with SUSTAINABLE DEVELOPMENT POLICY ANALYST. Anesthesia plan and risks discussed with sibling and patient. Consent and Attending signature: I and/or my designee have discussed the anesthesia plan, benefits, possible alternatives, parental presence at time of induction (if indicated), and clinically relevant risks that may include dental injury, unintentional awareness, and/or other complications. The patient and/or parent/legal guardian understand, and agree to proceed. All questions answered. documented in this encounter Plan of Treatment Not on file documented as of this encounter Procedures Procedure Name Priority Date/Time Associated Diagnosis Comments [place] AN PROCEDURE PLACEHOLDER Routine 07/27/2024 1:43 PM CDT documented in this encounter Results * [place] AN PROCEDURE PLACEHOLDER (07/27/2024 1:43 [...] Suzanne Hernandez MD ANESTHESIA ORDERABLES Final Result documented in this encounter Visit Diagnoses Not on filedocumented in this encounter Administered Medications Inactive Administered Medications - up to 3 most recent administrations Medication Order MAR Action Action Date Dose Rate Site lidocaine (cardiac) (XYLOCAINE) preservative free injection intravenous, As needed, Starting on Tue07/27/24 at 1335, Anesthesia Intra-op, Indications: Ventricular ArrhythmiasIndications :Ventricular Arrhythmias Given 07/27/2024 1:35 PM CDT 100 mg phenylephrine (FILIPPO-SYNEPHRINE) 1 mg/10 mL (100 mcg/mL) in sodium chloride 0.9% (premix) intravenous, As needed, Starting on Tue07/27/24 at 1425, Anesthesia Intra-op Given 07/27/2024 2:25 PM CDT 100 mcg phenylephrine (FILIPPO-SYNEPHRINE) 5 mg/50 mL (100 mcg/mL) in sodium chloride 0.9% (premix) intravenous, Continuous PRN, Starting on Tue07/27/24 at 1345, Anesthesia Intra-op Rate/Dose Change 07/27/2024 2:04 PM CDT 0.4 mcg/kg/min 26.112 mL/hr Rate/Dose Change 07/27/2024 1:49 PM CDT 0.7 mcg/kg/min 45. 696 mL/hr New Bag 07/27/2024 1:45 PM CDT 0.3 mcg/kg/min 19.584 mL /hr propofoL (DIPRIVAN) 10 mg/mL IV intravenous, As needed, Starting on Tue07/27/24 at 1338, Anesthesia Intra-op Given 07/27/2024 2:10 PM CDT 20 mg Given 07/27/2024 2:05 PM CDT 40 mg Given 07/27/2024 1:57 PM CDT 40 mg propofoL (DIPRIVAN) 10 mg/mL IV intravenous, Continuous PRN, Starting on Tue07/27/24 at 1345, Anesthesia Intra-op Rate/Dose Change 07/27/2024 1:57 PM CDT 80 mcg/kg/min 52.224 mL/hr Rate/Dose Change 07/27/2024 1:50 PM CDT 60 mcg/kg/min 39.1 68 mL/hr New Bag 07/27/2024 1:45 PM CDT 100 mcg/kg/min 65.28 mL/ hr documented in this encounter Additional Health Concerns Infection Onset Date Last Indicated Resolved Time Ring Surveillance Comment:[id number] NDM-1 07/20/2024 07/20/2024 08/03/2024 3:05 AM C DT documented as of this encounter Care Teams Agriculture Technician Relationship Specialty Start Date End Date Oswaldo Serrano MD [address] [address] PCP - General Family Medicine 04/14/18 [place] [id number] [address] Consulting Physician Cardiology 06/08/24 Sandro Hong MD [address] [place] [address] Referring Physician Cardiology 06/21/24 documented as of this encounter
--- OUTSIDE RECORDS SUMMARY | 2024-10-07 00:51 | XMS_ITS | Encounter Summary ---
Author Organization [facility] Healthcare Address [address] [place] [address] Care Team Providers Care Communications Systems Engineer Name Role Phone Oswaldo Serrano MD Primary Care Provider [phone] Pastora Flores MD Unavailable Sandro Hong MD Unavailable Reason for Visit * Auth/Cert (Routine) Specialty Diagnoses / Procedures Referred By Contac t Referred To Contact Diagnoses Osteomyelitis (HCC) Lower Back Pain Procedures N/A Referral ID Status Reason Start Date Expiration Date Visits Re quested Visits Authorized [id number] 1 1 Encounter Details Date Type Department Care Team (Late st Contact Info) Description 07/13/2024 2:55 PM CDT Anesthesia Event [facility] Operating Room [address] [place] [address] Jolanta Abdi MD [address] [place] [address] Esme Bobo NP [address] [facility] [phone] [place] [address] Anesthesia Record Procedure Summary Procedure Name Responsible Anesthesiologist Anesthesia Start Time Anesthesia Stop Time EXTRACTION LEAD AUTOMATIC IMPLANTABLE CARDIOVERTER DEFIBRILLATOR (Chest) Jolanta Abdi MD 07/13/24 1455 07/13/24 1817 Events Date Time Event Comment 07/13/2024 1411 In Preop 1433 1455 An Start 1500 Perfusion/Pump Standby 1515 In Room 1516 Perfusion Ready 1516 An Start Data 1523 Start Data 1533 An Induction The patient was reevaluated immediately before moderate or deep sedation use and before anesthesia induction. 1537 An Intubation 1620 Anesthesia Ready 1645 Proc Start 1650 Incision Start 1657 An Defib 1725 an stop data 1725 Perfusion Complete 1726 An Start Data 1740 Proc Fin 1752 An Extubation 1800 an stop data 1800 Out of Room 1817 Handoff to RN I completed my handoff [...] Patient disposition at the time of handoff: PACU 1816 An Stop Meds Name Total lidocaine (cardiac) syringe 2 % 50 mg propofol 150 mg fentaNYL 350 mcg rocuronium 50 mg phenylephrine 100 mcg/mL 200 mcg norepinephrine in dextrose 5 % (LEVOPHED) 8,000 mcg/250 mL (32 mcg/mL) infusion (premix) 0.17 mg EPINEPHrine 0.1 mg/mL 30 mcg dexAMETHasone 4 mg/mL 4 mg ondansetron (ZOFRAN) injection 4 mg 4 mg sugammadex 400 mg Lactated Ringer's (LR) infusion 1,600 mL * Agents Name O2% N2O O2 N2O Air Isoflurane Inspired Isoflurane * Blood No blood administrations on file. Lines, Drains, and Airways Type Details Placement Removal Wound 07/13/24; 1742; Ches t; Left; ICD removal site 07/13/24 174 by Naa Tapia RN Peripheral IV Placement Date: 07/06/24; Placement Time: 0000; Existing LDA Placed by: Other hospital; Orientation: Anterior, Left; Location: Hand; Removal Date: 07/21/24; Removal Time: 1400; Removal Reason: Occluded 07/06/24 0000 by Javed Ellsworth 07/21/24 1400 by Emily Root Urethral Catheter Placement Date: 07/13/24; Placement Time: 1531; Inserted by: WENDY DAWSON; Type: Double-lumen, Non-latex, Temperature probe; Balloon Size: 10 mL; Urine Returned: Yes; Removal Date: 07/14/24; Removal Time: 1532 07/13/24 1531 by Fei Guerrero 07/14/24 153 by Valeria Sabillon RN Arterial Line Placement Date: 07/13/24; Placemnt Time: 163 (created via procedure documentation); Size: 20 G; Orientation: Right; Location: Radial; Securement: Taped, Transparent dressing; Removal Date: 07/13/24; Removal Time: 183907/13/24 163 by Stepan Love MD 07/13/24 184 by Eulalia Trevino RN CVC Single Lumen Placement Date: 07/13/24; Placement Time: 164; Hand Hygiene: Yes; Site Prep Agent Dried: Yes; Sterile Barrier Used: Yes; Type: Non-tunneled; Orientation: Right; Location: Femoral; Inserted by: Dr/; Securement: Sutured, Transparent dressing; Placement Verification: Blood return, Ultrasound; Removal Date: 07/13/24; Removal Time: 1742; Removal Reason: Therapy completed 07/13/24 164 by Naa Tapia RN 07/13/24 174 by Naa Tapia RN Arterial Line Placement Date: 07/13/24; Placemnt Time: 1649; Size: 20 G; Orientation: Left; Location: Femoral; Insertion Attempts: 1; Securement: Sutured; Removal Date: 07/13/24; Removal Time: 174; Removal Reason: Therapy completed 07/13/241649 by Naa Tapia RN 07/13/24 174 by Naa Tapia, BROWN ETT Placement Date: 07/13/24; Placement Time: 1703 (created via procedure documentation); Mask Ventilation: 1; Technique: Video laryngoscopy; Type: ETT - single; Single Lumen Tube Size: 7 mm; Cuffed: Yes; Laryngoscope: Bonnie; Location: Oral; Insertion Attempts: 1; Placement Verification: Auscultation, Capnometry; Removal Date: 07/13/24; Removal Time: 17507/13/24 170 by Stepan Love MD 07/13/241751 by Jolanta Abdi MD CVC Quadruple Lumen Placement Date: 07/13/24; Placement Time: 1703 (created via procedure documentation); Hand Hygiene: Yes; Sterile Barrier Used: Yes; Orientation: Right; Location: Internal jugular; Placement Verification: Ultrasound; Removal Date: 07/13/24; Removal Time: 1826; Removal Reason: Removed by patient 07/13/241703 by Stepan Love MD 07/13/241826 by Eulalia Trevino RN documented in this encounter Social History Tobacco Use Types Packs/Day Years Used Date Smoking Tobacco: Never Smokeless Tobacco: Never [facility] Utilities Answer Date Recorded In the past 12 months has [employer], gas, oil, or water [employer] threatened to shut off services in your [...] attend chur ch or taoist services? Never 07/07/2024 Do you belong to any clubs o r organizations such as jehovah's witness groups, unions, fraternal or athletic groups, or school groups? No 07/07/2024 How often do you attend meet ings of the clubs or organizations you belong to? Never 07/07/2024 Are you , , di vorced, , never , or living with a partner? 07/07/2024 AUDIT-C Answer Date Recorded Q1: How often do you have a drink containing alcohol? Never 06/01/2024 Q2: How many drinks containi ng alcohol do you have on a typical day when you are drinking? Patient does not drink Q3: How often do you have si x or more drinks on one occasion? Never 06/01/2024 Overall Financial Resource Strain (CARDIA) Answe r [...] [facility] you [facility] or living in a usp (including now)? 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 Gender Identity Not on file Sexual Orientation Not on file documented as of this encounter OR Notes * Anesthesia Postprocedure Evaluation - Bran Rivas MD - 07/13/2024 6:34 PM CDT Patient: Loretta Pnen Procedure Summary Date: 07/13/24 Room / Location: [facility] OR POD 3 ROOM 308 / [facility] OR POD 3 Anesthesia Start: 1454 Anesthesia Stop: 1816 Procedure: EXTRACTION LEAD AUTOMATIC IMPLANTABLE CARDIOVERTER DEFIBRILLATOR (Chest) Diagnosis: Acute bacterial endocarditis (Acute bacterial endocarditis [I33.0]) Surgeons: Connie Baig MD Responsible Provider: Jolanta Abdi MD Anesthesia Type: general ASA Status: 3 Anesthesia Type: general Last vitals BP 152/79 Pulse 93 Temp 36.6 ??C (97.9 ??F) (Temporal) Resp 18 SpO2 96% Anesthesia Post Evaluation Patient location during evaluation: PACU Patient participation: complete - patient participated Level of consciousness: fully awake Pain management: satisfactory to patient Airway patency: adequate and patent Evidence of recall: no Cardiovascular status: acceptable Respiratory status: acceptable and nasal cannula Hydration status: acceptable Pt is: normothermic Nausea/Vomiting status: none Comments: VSS, going to floor No notable events documented. * Anesthesia Procedure Notes - Jolanta Abdi MD - 07/13/2024 5:15 PM CDT Associated Order(s): CHANCE CHANCE Date/time: Staff: Supervising anesthesiologist: Jolanta Abdi [...] with surgeon: yes Images submitted to archive: yes Patient location: OR Intubated: yes Bite blocked placed: yes Probe Insertion: easy Complications: no Probe type: adult Modalities: 2D imaging, continuous wave Doppler, pulsed wave Doppler and color Doppler Billing information: Physician requesting echo: Connie Baig MD CPT code: CHANCE placement and diagnostic exam, non-congenital (79646) ICD code(s) for medical necessity: I33.0 - [...] inferior: hypokinetic 16- Apical septal: hypokinetic 17- [place]: hypokinetic Valves: Aortic Valve: Annulus: normal Leaflet [...] the written comments contained within the report. * Anesthesia Procedure Notes - Stepan Love MD - 07/13/2024 5:04 PM CDT Associated Order(s): Central Venous Line Central Venous Line Patient location: OR Indication: [...] procedure well with no complications * Anesthesia Procedure Notes - Stepan Love MD - 07/13/2024 5:03 PM CDT Associated Order(s): Airway Airway Patient location: OR Urgency: elective Indications [...] with: silk tape Number of attempts: 1 * Anesthesia Procedure Notes - Stepan Love MD - 07/13/2024 4:34 PM CDT Associated Order(s): Arterial Line Arterial Line Patient location: OR End time: [...] no complications * Anesthesia Preprocedure Evaluation - Jolanta Abdi MD - 07/13/2024 1:24 PM CDT Images from the original note were not included. Anesthesia Evaluation Loretta Penn is a 63 y.o. female EXTRACTION LEAD AUTOMATIC IMPLANTABLE CARDIOVERTER DEFIBRILLATOR (Chest) Pre-Op Diagnosis Codes: * Acute bacterial endocarditis [I33.0] Patient Active Problem List Diagnosis Date Noted Osteomyelitis (HCC) 07/07/2024 Ventricular tachycardia (HCC) 06/11/2024 Chronic diastolic congestive heart failure (CMS/HCC) (HCC) 06/11/2024 Endocarditis 06/11/2024 Urinary frequency 06/11/2024 Gastroesophageal reflux disease without esophagitis 06/11/2024 Paroxysmal atrial fibrillation ([facility] ([facility]) 06/11/2024 Major depressive disorder 06/11/2024 CKD (chronic kidney disease) 06/11/2024 Traumatic hematoma of right upper arm 06/06/2024 Hypotension due to drugs 06/06/2024 SOB (shortness of breath) 05/30/2024 Acute on chronic systolic congestive heart failure ([facility]) ([facility]) 05/30/2024 Neck pain 05/30/2024 Hyponatremia 05/30/2024 Chronic a-fib ([facility] ([facility]) 05/30/2024 Controlled type 2 diabetes mellitus with chronic kidney disease, with long-term current use of insulin ([facility]) 05/30/2024 Hypothyroidism 05/30/2024 JOSE (obstructive sleep apnea) 05/30/2024 Diabetes mellitus with hyperglycemia ([facility]) 05/30/2024 Endocarditis 05/29/2024 Past Medical History: Diagnosis Date A-fib ([facility]) ([facility]) CHF (congestive heart failure) ([facility]) ([facility]) Diabetes mellitus ([facility]) GERD (gastroesophageal reflux disease) Hypertension Intellectual disability [...] Status: Pharmacy Complete Set By: Ashley Travis [facility] at 07/09/2024 12:55 PM Taking? Last Dose Start Date End Date Provider albuterol HFA (PROVENTIL HFA,VENTOLIN HFA,PROAIR HFA) 90 mcg/actuation inhaler -- -- -- Nica Muniz MD BASAGLLOGAN 100 unit/mL (3 mL) pen for injection [...] 10 mg tablet -- 12/12/23 -- Nica Muniz MD Farxiga 10 mg tablet -- 06/01/22 [...] 400 mg (241.3 mg elemental magnesium) tablet -- 06/22/24 07/22/24 Nancy Hartley MD Take 1 tablet (400 mg total) by mouth daily metoprolol XL (TOPROL-XL) 50 mg extended release tablet -- 06/22/24 07/22/24 Nancy Hartley MD Take 1 tablet (50 mg total) by mouth daily midodrine (PROAMATINE) 5 mg tablet -- 06/21/24 -- Nancy Hartley MD Take 1 tablet (5 mg total) by mouth 2 (two) times a day as needed (if systolic blood pressure less than 90mmHg) multivit cpanlygj-wjap-UV-calcium (THERA-M) 9 mg iron-400 mcg tablet -- -- -- Nica Muniz MD nortriptyline (PAMELOR) 10 mg capsule -- 05/18/24 -- Nica Muniz MD omeprazole (PriLOSEC) 20 mg capsule -- -- -- Nica Muniz MD pen needle, diabetic 32 gauge x needle -- 06/21/24 -- Nancy Hartley MD Use as directed 3 times a day. Notes: May substitute one size up or down as is available. potassium chloride ER 20 mEq CR tablet -- 01/20/24 -- Nica Muniz MD Xarelto 20 mg tablet -- -- -- Nica Muniz MD Current Facility-Administered Medications: acetaminophen (TYLENOL) tablet 650 mg, 650 mg, oral, Q4H PRN, 650 mg at 07/13/24 0611 Carrier Fluids for Secondary Infusion - 0.9% Sodium Chloride, 30 mL, intravenous, PRN ceFAZolin (ANCEF) 2,000 mg/20 mL in sterile water (premix) 2,000 mg, 2,000 mg, intravenous, Q8H GALINA, 2,000 mg at 07/13/24 0549 cyclobenzaprine (FLEXERIL) tablet 5 mg, 5 mg, oral, TID PRN, 5 mg at 07/12/24 1023 dextrose gel in packet 15 g, 15 g, oral, Q15 Min PRN OR dextrose (D10W) 10% bolus 250 mL, 250 mL, intravenous, Q15 Min PRN escitalopram (LEXAPRO) tablet 10 mg, 10 mg, oral, Daily, 10 mg at 07/13/24 0932 furosemide (LASIX) tablet 40 mg, 40 mg, oral, Daily, 40 mg at 07/13/24 0930 glucagon injection 1 mg, 1 mg, intramuscular, Q30 Min PRN heparin 1,000 unit/mL injection 4,500 Units, 40 Units/kg, intravenous, Q6H PRN, 4,500 Units at 07/11/24 2230 OR heparin 1,000 unit/mL injection 9,100 Units, 80 Units/kg, intravenous, Q6H PRN [Held by Provider] heparin in 0.45% sodium chloride 25,000 units/250 mL (100 units/mL) infusion (premix), 0-33 Units/kg/hr, intravenous, Titrated, Stopped at 07/13/24 0923 insulin glargine (LANTUS, SEMGLEE) 100 unit/mL injection 18 Units, 18 Units, subcutaneous, QAM, 18 Units at 07/13/24 0932 insulin lispro (HumaLOG, ADMELOG) 100 unit/mL injection 0-10 Units, 0-10 Units, subcutaneous, TID with meals, 4 Units at 07/11/24 1746 insulin lispro (HumaLOG, ADMELOG) 100 unit/mL injection 0-5 Units, 0-5 Units, subcutaneous, Nightly, 5 Units at 07/12/24 2340 insulin lispro (HumaLOG, ADMELOG) 100 unit/mL injection 9 Units, 9 Units, subcutaneous, TID with meals, 9 Units at 07/13/24 1211 levothyroxine (SYNTHROID) tablet 75 mcg, 75 mcg, oral, Daily - 0600, 75 mcg at 07/13/24 0549 lidocaine (LMX) 4 % cream 1 Application, 1 Application, topical, QID PRN magnesium oxide (MAG-OX) tablet 400 mg, 400 mg, oral, Daily, 400 mg at 07/13/2432 metoprolol XL (TOPROL-XL) extended release tablet 50 mg, 50 mg, oral, Daily, 50 mg at 07/13/2431 mirabegron ER (MYRBETRIQ) extended release tablet 25 mg, 25 mg, oral, Daily, 25 mg at 07/13/2431 nortriptyline (PAMELOR) capsule 10 mg, 10 mg, oral, Daily, 10 mg at 07/13/2431 ondansetron ODT (ZOFRAN-ODT) disintegrating tablet 4 mg, 4 mg, oral, Q6H PRN OR ondansetron (ZOFRAN) injection 4 mg, 4 mg, intravenous, Q6H PRN pantoprazole DR (PROTONIX) extended release tablet 20 mg, 20 mg, oral, Daily, 20 mg at 07/13/2431 polyethylene glycol (MIRALAX) packet 17 g, 17 g, oral, Daily PRN ramelteon (ROZEREM) tablet 8 mg, 8 mg, oral, Nightly PRN, 8 mg at 07/11/242107 sacubitriL-valsartan (ENTRESTO) 24-26 mg tablet 1 tablet, 1 tablet, oral, BID, 1 tablet at 931 senna-docusate (PERICOLACE) 8.6-50 mg per tablet 1 tablet, 1 tablet, oral, BID, 1 tablet at 07/13/24 0931 sodium chloride 0.9% flush 0.5-20 mL, 0.5-20 mL, intra-catheter, Q8H GALINA, 10 mL at 07/13/24 1211 sodium chloride 0.9% flush 0.5-20 mL, 0.5-20 mL, intra-catheter, PRN spironolactone (ALDACTONE) split tablet 12.5 mg, 12.5 mg, oral, Daily, 12.5 mg at 07/13/24 0931 Social History Tobacco Use Smoking Status Never Smokeless Tobacco Never Alcohol Use: Not At Risk (06/01/2024) AUDIT-C Frequency of Alcohol Consumption: Never Average Number of Drinks: Patient does not drink Frequency of Binge Drinking: Never Substance and Sexual Activity Drug Use Not on file No family history on file. Vitals: 07/12/24 1539 07/13/24 0000 07/13/24 0801 BP: 120/61 103/77 126/74 Pulse: 60 87 83 Resp: 18 16 18 Temp: 36.6 ??C (97.9 ??F) 37.1 ??C (98.8 ??F) 36.4 ??C (97.5 ??F) SpO2: 98% 98% 96% PT: 07/07/2024: 16.0 sec (H) INR: 07/07/2024: 1.47 (H) APTT: 07/13/2024: 60 sec (H) Hgb A1C: 07/07/2024: 7.7 % (H) CBC RBC: 07/13/2024: 3.35 M/cumm (L) RDW: No results found for requested labs within last 30 days. MCHC: 07/13/2024: 31.6 g/dL (L) MCH: 07/13/2024: 31.9 pg MCV: 07/13/2024: 101.2 fL (H) Hct: 07/13/2024: 33.9 % (L) Hgb: 07/13/2024: 10.7 g/dL (L) WBC: 07/13/2024: 5.0 K/cumm MPV: 07/13/2024: 10.5 fL Platelets: 07/13/2024: 280 K/cumm RDW CV: 07/13/2024: 14.3 % RDW Sd: 07/13/2024: 53.1 fL (H) BMP Glucose: 07/13/2024: 108 mg/dL Calcium: 07/13/2024: 9.6 mg/dL Sodium: 07/13/2024: 136 mmol/L Potassium: 07/13/2024: 4.5 mmol/L CO2: 07/13/2024: 29 mmol/L Chloride: 07/13/2024: 96 mmol/L (L) BUN: 07/13/2024: 14 mg/dL Creatinine: 07/13/2024: 0.81 mg/dL STOP-Bang Total Score: 4 Short Blessed Total Score: 19 DOS Physical Exam Medical history, medications, and allergies reviewed. Attestation: With today's edits, I endorse the the findings of the H&P dated: 07/07/2024. Airway Exam: Mallampati: III Cervical ROM: FROM TM distance: 2 Cardiovascular Exam: Rate: regular Rhythm: irregular Pulmonary Exam: LCTA, bilat EENT Exam: trachea midline Dental Exam: Edentulous Current state: Patient's current state is cooperative. Anesthesia Plan ASA 3 Planned anesthesia: General Invasive Monitors Planned: Invasive monitors planned: CHANCE and arterial line. Postoperative Plan: Postoperative administration opioids intended. No postoperative mechanical ventilation intended. Patient's planned disposition post procedure is Floor. Planned trial extubation. Informed Consent: Discussed plan with resident. Anesthesia plan and risks discussed with patient. Plan and Consent Comments: Discussed GETA and CHANCE, Also discussed arterial line and adding additional IV access after she is asleep. Consent and Attending signature: I and/or my [...] Procedure Name Priority Date/Time Associated Diagnosis Comments CA AN PROCEDURE PLACEHOLDER Routine 07/13/2024 5:15 PM CDT ANESTHESIA CENTRAL VENOUS LINE PLACEMENT Routine 07/13/2024 5:04 PM CDT ANESTHESIA INTUBATION Routine 07/13/2024 5:03 PM CDT ANESTHESIA ARTERIAL LINE PLACEMENT Routine 07/13/2024 4:34 PM CDT documented in this encounter Results * CA AN PROCEDURE PLACEHOLDER (07/13/2024 5:15 PM CDT) [...] code: CHANCE placement and diagnostic exam, non-congenital (99654) ICD code(s) for medical necessity: I33.0 - [...] inferior: hypokinetic 16- Apical septal: hypokinetic 17- [place]: hypokinetic Valves: Aortic Valve: Annulus: normal Leaflet [...] MD ANESTHESIA ORDERABLES Ayanna l Result * Arterial Line (07/13/2024 4:34 PM CDT) [...] Abdi MD ANESTHESIA ORDERABLES Ayanna l Result documented in this encounter Visit Diagnoses Not on filedocumented in this encounter Administered Medications Inactive Administered Medications - up to 3 most recent administrations Medication Order MAR Action Action Date Dose Rate Site dexAMETHasone (DECADRON) 4 mg/mL injection intravenous, Administer over 2 Minutes, As needed, Starting on Tue07/13/24 at 1728, Anesthesia Intra-op Given 07/13/2024 5:28 PM CDT 4 mg EPINEPHrine syringe (ADRENALIN) 0.1 mg/mL intravenous, As needed, Starting on Tue07/13/24 at 1542, Anesthesia Intra-op Given 07/13/2024 3:42 PM CDT 30 mcg fentaNYL (SUBLIMAZE) preservative free injection intravenous, As needed, Starting on Tue07/13/24 at 1533, Anesthesia Intra-op Given 07/13/2024 5:25 PM CDT 100 mcg Given 07/13/2024 4:59 PM CDT 100 mcg Given 07/13/2024 3:33 PM CDT 150 mcg Lactated Ringer's (LR) infusion 30 mL/hr, intravenous, Continuous, Starting on Tue07/13/24 at 1500, Pre-Op New Bag 07/13/2024 3:16 PM CDT lidocaine (cardiac) (XYLOCAINE) preservative free injection intravenous, As needed, Starting on Tue07/13/24 at 1533, Anesthesia Intra-op, Indications: Ventricular ArrhythmiasIndications:Ventr icular Arrhythmias Given 07/13/2024 3:33 PM CDT 50 mg norepinephrine in dextrose 5% (LEVOPHED) 8,000 mcg/250 mL (32 mcg/mL) infusion (premix) 0-2 mcg/kg/min ? 113.2 kg (0-424.5 mL/hr), 32 mcg/mL, intravenous, Titrated, Starting on Tue07/13/24 at 1700, Until 07/14/24 at 1212, Intra-Op, Initial rate: 0.05 mcg/kg/min, Titrate: Up/Down, Titrate by: 0.01 mcg/kg/min, Every: 2 minutes, Goal: MAP, MAP Goal: 65-75 mmHg, Routine New Bag 07/13/2024 4:20 PM CDT 0.02 mcg/kg/min 4.245 mL/hr ondansetron (ZOFRAN) injection 4 mg 4 mg, intravenous, Administer over 2 Minutes, Every 6 hours PRN, nausea, vomiting, if not tolerating PO, Starting on 07/07/24 at 0013, Indications: Nausea and VomitingIndications:Nausea and Vomiting Given 07/25/2024 9:33 PM CDT 4 mg Given 07/25/2024 2:09 PM CDT 4 mg Given 07/13/2024 5:28 PM CDT 4 mg phenylephrine (FILIPPO-SYNEPHRINE) 1 mg/10 mL (100 mcg/mL) in sodium chloride 0.9% (premix) intravenous, As needed, Starting on Tue07/13/24 at 1543, Anesthesia Intra-op Given 07/13/2024 3:43 PM CDT 200 mcg propofoL (DIPRIVAN) 10 mg/mL IV intravenous, As needed, Starting on Tue07/13/24 at 1533, Anesthesia Intra-op Given 07/13/2024 3:33 PM CDT 150 mg rocuronium (ZEMURON) injection intravenous, As needed, Starting on Tue07/13/24 at 1533, Anesthesia Intra-op Given 07/13/2024 3:33 PM CDT 50 mg sugammadex (BRIDION) 100 mg/mL intravenous solution intravenous, As needed, Starting on Tue07/13/24 at 1733, Anesthesia Intra-op Given 07/13/2024 5:35 PM CDT 400 mg documented in this encounter Care Teams Communications Systems Engineer Relationship Specialty Start Date End Date Oswaldo Serrano MD [address] [address] PCP - General Family Medicine 04/14/18 [place] [id number] [address] Consulting Physician Cardiology 06/08/24 Sandro Hong MD [address] [place] [address] Referring Physician Cardiology 06/21/24 documented as of this encounter
--- OUTSIDE RECORDS SUMMARY | 2024-10-07 00:51 | XMS_ITS | Encounter Summary ---
Author Organization [facility] Address [address] [place] [address] Phone Care Team Providers Care Engineering Executive Name Role Phone Oswaldo Serrano MD Primary Care Provider [phone] Pastora Flores MD Unavailable Sandro Hong MD Unavailable Encounter Details Date Type Department Care Team (Late st Contact Info) Description 07/16/[address] [facility] Infectious Diseases [address] [place] [address] [address] [place] [address] Eric Magaña MD [address] [facility] [address] [place] [address] Social History Tobacco Use Types Packs/Day Years Used Date Smoking Tobacco: Never Smokeless Tobacco: Never [employer] Utilities Answer Date Recorded In the past 12 months has [employer] electric, gas, oil, or water [employer] threatened to shut off services in your [...] week 07/07/2024 How often do you attend [facility] or denominational services? Never 07/07/2024 Do you belong to any clubs o r organizations such as christian groups, unions, fraternal or athletic groups, or [...] time in the past [address] [facility], were you homeless or living in a nursing home (including now)? 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 Infectious Diseases Infectious Diseases Sign Off Recommendations for Patients on Exchange Floor Manager IV Antibiotics (NON-CONTRACTED WITH [facility]) Primary Team: Please include this information in the discharge summary to the patient's primary provider: The following patient is being discharged from [facility] or [facility] on IV antibiotics. Please see below for recommendations from the Infectious Diseases inpatient consult teamregarding management. Routine monitoring labs and dose adjustments are the responsibility of your clinical providers and are NOT being followed by [facility] while the patient is receiving IV antibiotics. Patient has insurance that is non-contracted with ID clinic. It is now the responsibility of theprimary team to find and set up ID follow up prior to discharge. Once an outpatient ID provider is identified we are more than happy to communicate with them if needed, but ID will not be responsible for post- discharge antibiotics or management. If the patient's insurance changes after this notewas signed, please reach out to the ID consult team to reassess. Infectious Diseases OPAT Sign Off Note General Information OPAT Program: [facility] ID Team: Gen ID 1 Responsible ID Provider: Shereen Antibiotic Indication: Endocarditis Antibiotics start date: 07/13/24 Antibiotics start date reason: Time of ICD removal Firm stop: No Antibiotics anticipated stop date: 08/23/24 Pathogens: MSSA Infection of Implanted Material: yes Imaging Recommended Before Follow-up: No imaging Follow up in general ID clinic with any provider in 3-4 weeks. Antimicrobials Antimicrobials: Cefazolin Antimicrobial Routes Cefazolin Route: Infusion (2g q8hr) Labs Labs - Weekly Labs: CBC with diff and platelet, CMP Fax Labs To: [facility] ([phone]) Call For a Change in Clinical Status, Critical/Abnormal Results, or Order Verification: [facility] ([phone]) OPAT Summary of Consult Summary of Consult: This is a 63 y.o. female with Afib, IDDM2, HFrEF s/p AICD, hypothyroidism, and intellectual disability, who was admitted for hoh TV and ICD-associated MSSA endocarditis. She recently completed treatment for complicated MSSA bacteremia at an OSH with four weeks of cefazolin (05/25-06/21). CHANCE at that time did not show any evidence of endocardiac or ICD involvement. She represented to OSH on 06/21 with non- specific complaints and was found to have recurrent MSSA bacteremia (single culture positive 07/01). CT imaging was not suggestive of osteomyelitis but given ongoingcomplaint of back pain was transferred here for consideration of MRI given potential non-compatibility with existing ICD. CHANCE here showed a 1.2 x 0.9 cm [...] Source and chronicity of wire is unclear. She will receive 6 weeks of treatment with IV cefazolin (07/13-08/23) starting from date of ICD removal, followed by long-term suppression with cefadroxil 1g BID given presence of a retained wire in her pulmonary artery. She is discharging with Life[facility]est in place and will have ICD re-implanted after a minimum of two weeks of therapy have been completed. documented in this encounter Plan of Treatment Not on file documented as of this encounter Visit Diagnoses Not on filedocumented in this encounter Care Teams Engineering Executive Relationship Specialty Start Date End Date Oswaldo Serrano MD [address] [address] PCP - General Family Medicine 04/14/18 [place] [address] [address] [address] Consulting Physician Cardiology 06/08/24 Sandro Hong MD [address] [place] [address] Referring Physician Cardiology 06/21/24 documented as of this encounter
--- OUTSIDE RECORDS SUMMARY | 2024-10-07 00:51 | XMS_ITS | Encounter Summary ---
Author Organization [facility] Healthcare Address [address] [place] [address] Care Team Providers Care Tank Filler Name Role Phone Oswaldo Serrano MD Primary Care Provider [phone] Pastora Flores MD Unavailable Sandro Hong MD Unavailable Reason for Visit * Auth/Cert (Routine) Specialty Diagnoses / Procedures Referred By Contac t Referred To Contact Diagnoses Osteomyelitis (HCC) Lower Back Pain Procedures N/A Referral ID Status Reason Start Date Expiration Date Visits Re quested Visits Authorized [id number] 1 1 Encounter Details Date Type Department Care Team (Late st Contact Info) Description 07/13/2024 1:35 PM CDT Ancillary Procedure [facility] Operating Room [address] [place] [address] Social History Tobacco Use Types Packs/Day Years Used Date Smoking Tobacco: Never Smokeless Tobacco: Never [facility] Utilities Answer Date Recorded In the past 12 months has th [employer] electric, gas, oil, or water company threatened [...] week 07/07/2024 How often do you attend [facility] or scientology services? Never 07/07/2024 Do you belong to any clubs o r organizations such as moravian groups, unions, fraternal or athletic groups, or [...] were you homeless or living in a senior living (including now)? 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 PROSOLV_CARDIOREPORT_CONS SCIMAGE - 07/13/2024 3:38 PM CDT Procedure Auto Finalized by Rule: VERN CV CHANCE DURING CASE OR Please see the Anesthesiologist's Procedure Note for the results. us Jolanta Abdi MD CV ECHO PROCEDURES Final R esult [facility] PROSOLV_CARDIOREPORT_CONS SCIMAGE documented in this encounter Visit Diagnoses Not on filedocumented in this encounter Care Teams Tank Filler Relationship Specialty Start Date End Date Oswaldo Serrano MD [address] [address] PCP - General Family Medicine 04/14/18 [place] [id number] [address] Consulting Physician Cardiology 06/08/24 Sandro Hong MD [address] [place] [address] Referring Physician Cardiology 06/21/24 documented as of this encounter
--- OUTSIDE RECORDS SUMMARY | 2024-10-07 00:51 | XMS_ITS | Encounter Summary ---
Author Organization [facility] Healthcare Address [address] [place] [address] Care Team Providers Care Circulation Director Name Role Phone Oswaldo Serrano MD Primary Care Provider [phone] Pastora Flores MD Unavailable Sandro Hong MD Unavailable Encounter Details Date Type Department Care Team (Late st Contact Info) Description 07/25/2024 Orders Only [facility] Radiology [address] [place] [address] Hina Blanton RN Social History Tobacco Use Types Packs/Day Years Used Date Smoking Tobacco: Never Smokeless Tobacco: Never [facility] Utilities Answer Date Recorded In the past 12 months has [employer] electric, gas, oil, or water company threatened [...] attend chur ch or hoahaoism services? Never 07/07/2024 Do you belong to any clubs o r organizations such as restoration groups, unions, fraternal or athletic groups, or [...] any time in the past [address] [facility], were you homeless or living in a alf (including now)? No 07/07/2024 Personal Safety Answer Date Recorded Have you ever been in or are you currently in a harmful physical or emotional relationship or is someone making you feel afraid or unsafe? 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 Gender Identity Not on file Sexual Orientation Not on file documented as of this encounter Plan of Treatment Not on file documented as of this encounter Visit Diagnoses Not on filedocumented in this encounter Additional Health Concerns Infection Onset Date Last Indicated Resolved Time Ring Surveillance Comment:[id number] NDM-1 07/20/2024 07/20/2024 08/03/2024 3:05 AM C DT documented as of this encounter Care Teams Circulation Director Relationship Specialty Start Date End Date Oswaldo Serrano MD 2 [facility] [address] [place] [address] PCP - General Family Medicine 04/14/18 [place] [address] [address] Consulting Physician Cardiology 06/08/24 Sandro Hong MD [address] [place] [address] Referring Physician Cardiology 06/21/24 documented as of this encounter
--- OUTSIDE RECORDS SUMMARY | 2024-10-07 00:52 | XMS_ITS | Encounter Summary ---
Author Organization [facility] Healthcare Address [address] [place] [address] Care Team Providers Care Prosthetics Lab Technician Name Role Phone Oswaldo Serrano MD Primary Care Provider [phone] Pastora Flores MD Unavailable Sandro Hong MD Unavailable Reason for Visit * Auth/Cert (Routine) Specialty Diagnoses / Procedures Referred By Contac t Referred To Contact Diagnoses Osteomyelitis (HCC) Lower Back Pain Procedures N/A Referral ID Status Reason Start Date Expiration Date Visits Re quested Visits Authorized [id number] 1 1 Encounter Details Date Type Department Care Team (Late st Contact Info) Description 07/13/2024 3:00 PM CDT - 07/13/2024 5:40 PM CDT Surgery [facility] Operating Room [address] [place] [address] Connie Baig MD [id number] [place] [address] EXTRACTION LEAD AUTOMATIC IMPLANTABLE CARDIOVERTER DEFIBRILLATOR Surgery Details Date/Time Status Location OR Service Patient Class Case Class Case Type Trauma Case? 07/13/2024 3:00 PM Posted [facility] OR POD 3 308 Cardiothoracic Inpatient Urgent - 24 hours Panel 1 Procedure LRB Anes Op Region Wound Class Comments EXTRACTION LEAD AUTOMATIC IM PLANTABLE CARDIOVERTER DEFIBRILLATOR N/A General Chest Class I - Alannah n Surgeon Surgeon Role Service Panel Connie Baig MD Primary Cardiothoracic 1 Adithya Mack MD Fellow Cardiothdorothy pitts 1 documented in this encounter Social History Tobacco Use Types Packs/Day Years Used Date Smoking Tobacco: Never Smokeless Tobacco: Never [facility] Utilities Answer Date Recorded In the [...] attend chur ch or pentecostalism services? Never 07/07/2024 Do you belong to any clubs o r organizations such as gnosticist groups, unions, fraternal or athletic groups, or [...] time in the past 12 m [facility], were you homeless or living in a [facility] (including now)? No 07/07/2024 Personal Safety Answer Date Recorded Getting School Help Needed Not on file 12/24 Comments Unknown Sex and Gender Information Value Date Recorded Sex Assigned at Not on file Legal Sex Female 3:51 AM [employer] Gender Identity Not on file Sexual Orientation Not on file documented as of this encounter Last Filed Vital Signs Vital Sign Reading Time Taken Comments Blood Pressure 152/79 07/13/2024 2:27 PM CDT Pulse 93 07/13/2024 2:27 PM CDT Temperature 36.6 ??C (97.9 ??F) 07/13/2024 2:27 PM CD T Respiratory Rate 18 07/13/2024 2:27 PM CDT Oxygen Saturation 96% 07/13/2024 2:27 PM CDT Inhaled Oxygen Concentration - - Weight 113.2 kg (249 lb 8 oz) 07/13/2024 6:11 AM CDT Height 165.1 cm (5' 5 ) 07/07/2024 7:00 AM CDT Body Mass Index 40.2 07/07/2024 7:00 AM CDT documented in this encounter Discharge Summaries * Raul Holder MD - 08/02/2024 3:18 PM CDT Inpatient Discharge Summary BRIEF OVERVIEW Admitting Provider: Robin Watkins MD Discharge Provider: Russ Pride MD Primary Care Physician at Discharge: Oswaldo Serrano MD [phone] Admission Date: 07/07/2024 Discharge Date: 08/02/2024 Admission Location: [facility] Problems/Diagnoses: Principal Problem: Osteomyelitis (HCC) Active [...] aureus and CT c/f OM. Tx to [facility] for further evaluation and treatment. Information provided by patient's sister Dilia over the phone. Dilia is the patient's primary door frame assembler machine at this time and is also the medical decision maker along with their other sister Peg. PerAcostae, patient had back/flank pain going on for [...] differently when she has a UTI. At [facility]: Vital signs on arrival with heart rate [...] further evaluation. Patient was recently admitted to [facility] in 05/2024 for bacteremia. She was initially admitted to [facility] on 05/21 and found to have MSSA bacteremia. Tx to [facility] 05/30 for concern for endocarditis. TTE and [...] T2DM, GERD, Intellectual disability who presented to [place] after recent hospitalizations for MSSA bacteremia with [...] x2, 1/ then second set 2/2 MSSA. Ancef restarted. 07/07 cx NGTD. Recurrence [...] mild-mod TR. HFrEF dates back to at [id number], etiology not established. S/p CTA coronary 07/16 [...] Ms. Lei Rodriguez, You were admitted to [facility] from 07/07/2024 to 08/02/24 for treatment [...] will be important to follow up with coning machine operator and infectious disease specialist. Please present to medical attention (by calling your PCP, calling 911, or going to an emergency department) if you experience chest pain, sudden shortness of breath, and fevers. You have the following appointments scheduled: - Cardiology: Dr. Flores at [facility] on August 21 at 2:15 pm. Please call to confirm your appointment and location at - Infectious Diseases: Dr. Josué Gomes at [facility]. Appointment is 08/09 at 11:15 AM. Their address is [address] [place] [address], [address], [place], [place]. Please call them to confirm your appointment and location at Your primary care provider is Oswaldo Serrano MD and can be reached at [phone]. -> I have made changes to the [...] We also recommend following up with your cardiologists/professor/nurse anesthetist for a repeat GT (an image of your heart through the throat) to assess for remaining vegetation of the valve and evaluation of re-insertion of a pacemaker. In the meantime, PLEASE wear your LifeVest, which can prevent cardiac arrest and poor outcomes. We wish you the very best, Cardiology Firm Service [facility] [phone] Other Instructions Ambulatory referral to Home Health [...] Ventricular tachycardia I49.01 Comment - Ventricular fibrillation [id number] Comment - Infection and inflammatory reaction due to other cardiac and vascular devices When a Kestra Assure is ordered in [facility], the order is automatically faxed to [employer]. Additional patient information is needed. Please enter the date you will fax the patient???s face sheet and supporting documentation to [phone].: 07/31/2024 The hahq-hj-kxbq evaluation was performed on: 07/31/2024 DME services provided by: [facility] Home Health agency: [facility] Phone number: [phone] You should be contacted by the home [...] than 90mmHg) Commonly known as: PROAMATINE multivit wshaijnk-otpf-RP-calcium 9 mg iron-400 mcg tablet Take 1 [...] Referral Status: External - Ready to Schedule [facility] [address] [place] [id number] Next Steps: Follow up Oswaldo Serrano MD Specialty: Family Medicine Relationship: PCP - General [address] [place] [id number] Next Steps: Follow up Cosigned by Suman Chávez MD at 08/02/2024 5:18 PM CDT documented in this encounter Discharge Instructions * Discharge Instructions* Raul Holder MD - 08/01/2024 2:10 PM CDT Dear Lei Calderon [place], You were admitted to [facility] from 07/07/2024 to 08/02/24 for treatment [...] will be important to follow up with coning machine operator and infectious disease specialist. Please present to medical attention (by calling your PCP, calling 911, or going to an emergency department) if you experience chest pain, sudden shortness of breath, and fevers. You have the following appointments scheduled: - Cardiology: Dr. Flores at [facility] on August 21 at 2:15 pm. Please call to confirm your appointment and location at - Infectious Diseases: Dr. Josué Gomes at [facility]. Appointment is 08/09 at 11:15 AM. Their address is [address] [place] [address], Suite [facility], [place], [place]. Please call them to confirm your appointment and location at Your primary care provider is Oswaldo Serrano MD and can be reached at [phone]. -> I have made changes to the [...] We also recommend following up with your cardiologists/professor/nurse anesthetist for a repeat GT (an image of your heart through the throat) to assess for remaining vegetation of the valve and evaluation of re-insertion of a pacemaker. In the meantime, PLEASE wear your LifeVest, which can prevent cardiac arrest and poor outcomes. We wish you the very best, Cardiology Firm Service [facility] [phone] * Discharge Instr - Other Orders* Lou Parmar RN - 08/01/2024 2:34 PM CDT Home Health agency: [facility] Phone number: [phone] You should be contacted by the home [...] daily with breakfast 23.4 mL 1 08/02/2024 levothyroxine (SYNTHROID) 75 mcg tablet Take 1 [...] less than 90mmHg) 30 tablet 06/21/2024 multivit jxiawpsq-bter-EX -calcium (THERA-M) 9 mg iron-400 mcg tablet [...] day before meals 29.7 mL 1 08/02/2024 insulin glargine 100 unit/mL (3 mL) pen [...] times a day 360 capsule 3 08/02/2024 5 nortriptyline (PAMELOR) 10 mg capsule Take 1 capsule (10 mg total) by mouth nightly 90 capsule 3 08/02/2024 5 sacubitriL-valsart an (ENTRESTO) 24-26 mg tabletIndications: chronic heart failure Take 1 tablet by mouth 2 (two) times a day 180 tablet 08/02/2024 5 documented in this encounter Discharge Disposition Disposition Code Departure Means Destination Comment s Discharge to home, home health skilled care documented in this encounter Progress Notes * Lou Parmar RN - 08/02/2024 4:17 PM CDT 08/02/24 1409 Discharge Summary Discharge Disposition Private residence;Home health care Recommended Discharge Level of Care long term facility (short term care) Actual Discharge Level of Retirement health care Does Actual Level of Care Match Care Team Recommendation? No Reason for Mismatch Pt/family/disagree Post Acute Care Plan Home Care Services Yes Type of Home Care Services Home therapies;Nurse visit Home Care Services Name and Phone Number [facility] [phone] OP Services N/A DME Yes Durable Medical Equipment Other (Comment) DME Name and Contact Number Carola Shearer ([phone]) Post Acute Care Facility Decline Discharge Additional [...] discharge needs arise, please contact the covering case advocate. * Ha Martinez - 08/02/2024 2:00 PM [...] not assigned to this patient, please call [phone]. 08/02/24 5818 General Session Type Treatment OT Received On [...] this the discharge summary Recommendation/Plan OT Recommendation Retirement Facility Patient at high risk for Falls;Readmission;Injury [...] Events: - Received Dalbavancin yesterday - Underwent Assue Kestra ICD vest training with sisters. Vest now [...] : 1960 (F) Hospital #: 0 Location: [facility] Cardiac Diagnostic Lab Interpreted by: Hernan Phelps MD Pick Out Hand: Russel Workman MD RN: Reason for Test: [...] 3=Akinetic 4=Dyskin. 5=Aneurysm 0=Not visualized) Short [place] Johns-Gastric:=2 S=2 I=2 P=2 L=2 A=2 Long [place] Johns-Gastric:BP=2 BA=2 MP=2 MA=2 AP=2 AA=2 Chamber Dimensions: [...] seen, Mild-moderate MR, severe TV regurgitation, Mild DC. GT Summary Russel Workman performed the GT [...] significant valvular heart disease. Biatrial enlargement. Dilated MALUIK with substantial spontaneous echo contrast and a large laminated hrombus. No interatrial shunt detected on color-flow Doppler imaging.No pericardial effusion. Mild atherosclerosis of the descending aorta. 3D Imaging: This study was supervised and interpreted by Hernan Phelps MD Confirmed on 07/27/2024 - 16:25:20 by Hernan Phelsp MD Car Shunter: Russel Workman By signing this report, the attending coning machine operator certifies that he or she has personally [...] aureus and CT c/f OM, transferred to [facility] for further evaluation/treatment. Admitted with MSSA [...] mild-mod TR. HFrEF dates back to at [id number], etiology not established. S/p CTA coronary 07/16 [...] Disposables VTE Prophylaxis: Eliquis PT: PT Recommendation/Plan: Retirement Facility OT:OT Recommendation: Retirement Facility Rambo Holder Cosigned by Suman Chávez [...] treatment team and contact the PT or DATA COLLECTION TECHNICIAN currently assigned to this patient. If a physical therapy clinician is not assigned to this patient, please call [phone]. 08/02/24 1012 PT Last Visit Session Type [...] with functional mobility. 07/08/24 08/13/24 -- * rIma May DPT - 08/01/2024 11:42 AM CDT [...] life vest and would like teaching - Jeffrey on day of discharge with Life vest, [...] of TV endocarditis. Ok to discharge with Carola Blackman. OBJECTIVE Vitals Most Recent: Vitals: 08/01/24 0512 [...] : 1960 () Hospital #: 0 Location: [facility] Cardiac Diagnostic Lab Interpreted by: Hernan Phelps MD Pick Out Hand: Russel Workman MD RN: Reason for Test: [...] 3=Akinetic 4=Dyskin. 5=Aneurysm 0=Not visualized) Short Saint Johns-Gastric:=2 S=2 I=2 P=2 L=2 A=2 Long [place] Johns-Gastric:BP=2 BA=2 MP=2 MA=2 AP=2 AA=2 Chamber Dimensions: [...] seen, Mild-moderate MR, severe TV regurgitation, Mild DC. GT Summary Russel Workman performed the GT [...] 07/27/2024 - 16:25:20 by Hernan Phelps MD Car Shunter: Russel Workman By signing this report, the attending coning machine operator certifies that he or she has personally [...] aureus and CT c/f OM, transferred to [facility] for further evaluation/treatment. 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 HFrEF dates back to at [id number], etiology not established. S/p CTA coronary 07/16 [...] Disposables VTE Prophylaxis: Eliquis PT: PT Recommendation/Plan: Retirement Facility OT:OT Recommendation: Retirement Facility Calderon Harmon MD PGY-1 Internal Medicine [...] : 1960 () Hospital #: 0 Location: [facility] Cardiac Diagnostic Lab Interpreted by: Hernan Phelps MD Pick Out Hand: Russel Workman MD RN: Reason for Test: [...] 3=Akinetic 4=Dyskin. 5=Aneurysm 0=Not visualized) Short Saint Johns-Gastric:=2 S=2 I=2 P=2 L=2 A=2 Long [place] Johns-Gastric:BP=2 BA=2 MP=2 MA=2 AP=2 AA=2 Chamber Dimensions: [...] seen, Mild-moderate MR, severe TV regurgitation, Mild DC. GT Summary Russel Workman performed the GT [...] 07/27/2024 - 16:25:20 by Hernan Phelps MD Car Shunter: Russel Workman By signing this report, the attending coning machine operator certifies that he or she has personally [...] aureus and CT c/f OM, transferred to [facility] for further evaluation/treatment. Admitted with MSSA [...] mild-mod TR. HFrEF dates back to at [id number], etiology not established. S/p CTA coronary 07/16 [...] Disposition: pending Best contact: Primary Emergency Contact: Diila Moise Diet: Adult Diet Restricted; 2 GM Sodium; Consistent Carbohydrate; Send on Disposables VTE Prophylaxis: Eliquis PT: PT Recommendation/Plan: Retirement Facility OT:OT Recommendation: Retirement Facility Calderon Harmon MD PGY-1 Internal Medicine [...] treatment team and contact the PT or DATA COLLECTION TECHNICIAN currently assigned to this patient. If a physical therapy clinician is not assigned to this patient, please call [phone]. 07/30/24 1442 PT Last Visit Session Type [...] this the discharge summary Recommendation/Plan PT Recommendation/Plan Retirement Facility (versus home with 24 hr assist [...] functional mobility. 07/08/24 08/13/24 -- * Carla Gamboa OT - 07/30/2024 10:25 AM CDT Occupational [...] not assigned to this patient, please call [phone]. 07/30/24 1028 General Session Type Treatment OT Received On [...] this the discharge summary Recommendation/Plan OT Recommendation Retirement Facility Patient at high risk for Falls;Readmission;Injury [...] flush 0.5-20 mL 0.5-20 mL intra-catheter Q8H AGLINA sodium chloride 0.9% flush 5-10 mL 5-10 [...] mg/dL Glucose comment 1 Glu2: RN/MD Notified POCT glucose Collection Time: 07/29/24 11:30 AM Result Value Ref Range Glucose, POC 268 (H) 70 - 199 mg/dL Glucose comment 1 Glu2: RN/MD Notified POCT glucose Collection Time: 07/29/24 5:11 [...] : 1960 (F) Hospital #: 0 Location: [facility] Cardiac Diagnostic Lab Interpreted by: Hernan Phelps MD Pick Out Hand: Russel Workman MD RN: Reason for Test: [...] 3=Akinetic 4=Dyskin. 5=Aneurysm 0=Not visualized) Short Saint Johns-Gastric:=2 S=2 I=2 P=2 L=2 A=2 Long [place] Johns-Gastric:BP=2 BA=2 MP=2 MA=2 AP=2 AA=2 Chamber Dimensions: [...] seen, Mild-moderate MR, severe TV regurgitation, Mild DC. GT Summary Russel Workman performed the GT [...] 07/27/2024 - 16:25:20 by Hernan Phelps MD Car Shunter: Russel Jacinta By signing this report, the attending coning machine operator certifies that he or she has personally [...] aureus and CT c/f OM, transferred to [facility] for further evaluation/treatment. Admitted with MSSA [...] mild-mod TR. HFrEF dates back to at [id number], etiology not established. S/p CTA coronary 07/16 [...] Disposables VTE Prophylaxis: Eliquis PT: PT Recommendation/Plan: Retirement Facility OT:OT Recommendation: Retirement Facility Calderon Harmon MD PGY-1 Internal Medicine [...] 30 mL intravenous PRN 30 mL at 10/16/24 1621 cyclobenzaprine (FLEXERIL) tablet 5 mg 5 [...] : 1960 () Hospital #: 0 Location: [facility] Cardiac Diagnostic Lab Interpreted by: Hernan Phelps MD Pick Out Hand: Russel Workman MD RN: Reason for Test: [...] 3=Akinetic 4=Dyskin. 5=Aneurysm 0=Not visualized) Short Saint Johns-Gastric:=2 S=2 I=2 P=2 L=2 A=2 Long [place] Johns-Gastric:BP=2 BA=2 MP=2 MA=2 AP=2 AA=2 Chamber Dimensions: [...] seen, Mild-moderate MR, severe TV regurgitation, Mild DC. GT Summary Russel Workman performed the GT [...] 07/27/2024 - 16:25:20 by Hernan Phelps MD Car Shunter: Russel Workman By signing this report, the attending coning machine operator certifies that he or she has personally [...] aureus and CT c/f OM, transferred to [facility] for further evaluation/treatment. Admitted with MSSA [...] x2, 10/11 then second set /2 MSSA. Vanc + [...] mild-mod TR. HFrEF dates back to at [id number], etiology not established. S/p CTA coronary 07/16 [...] Disposables VTE Prophylaxis: Eliquis PT: PT Recommendation/Plan: Retirement Facility OT:OT Recommendation: Retirement Facility Valentina Brown MD PGY-1 Internal Medicine [...] be considered candidate for long stay at [place]. - We will discuss with electrophysiology their [...] aureus and CT c/f OM. Tx to [facility] for further evaluation and treatment. Admitted [...] Disposables VTE Prophylaxis: Eliquis PT: PT Recommendation/Plan: Retirement Facility OT:OT Recommendation: Retirement Facility Rambo Holder Cosigned by Suman Chávez [...] 07/28/2024 1:41 PM CDT Spiritual Care Note Paving Block Cutter Noah Nicnaor [phone] 07/28/24 1330 Time Spent Start Time 0955 [...] Achieved Interventions Interventions Active listening;Offer emotional support;Offer spiritual/pentecostalism support * Valentina Brown MD - 07/27/2024 [...] aureus and CT c/f OM. Tx to [facility] for further evaluation and treatment. Admitted [...] valve, determine ICD - [facility] will not need home Abx, can discharge once ICD replaced (timing pending GT) Code Status: Full Code Disposition: pending Best contact: Primary Emergency Contact: Dilia Moise Diet: Adult Diet Restricted; 2 GM Sodium; Consistent Carbohydrate; Send on Disposables VTE Prophylaxis: Eliquis PT: PT Recommendation/Plan: Retirement Facility OT:OT Recommendation: Retirement Facility Valentina Brown MD PGY-1 Internal Medicine [...] to follow. Jennifer Webb MS, RD, LD [phone] * Russel Workman MD - 07/27/2024 11:23 [...] a past medical history of A-fib (CMS/HCC) ([facility]), CHF (congestive heart failure) (CMS/HCC)(HCC), Diabetes mellitus (HCC), GERD (gastroesophageal reflux disease), Hypertension, Intellectual disability, [...] tablet midodrine (PROAMATINE) 5 mg tablet multivit vuemrkiw-qwjw-SF-calcium (THERA-M) 9 mg iron-400 mcg tablet nortriptyline [...] Imaging: Reviewed Plan: Proceed with GT Russel Workmna MD Car Shunter Time: 11:23 AM Date: 07/27/2024 Cosigned by Hernan Phelps MD at 07/27/2024 1:13 PM CDT * Jade Machado PTA - 07/27/2024 11:05 AM CDT Physical Therapy 07/27/24 1105 PT Last Visit PT Missed Visit Reason Procedure/testing/appointment;Unavailable (GT) * Angel Vick - 07/26/2024 12:13 PM CDT Spiritual Care Note Paving Block Cutter Noah Vick [phone] 07/26/24 1200 Time Spent Start Time 0935 [...] cultural values;Explore maira and values;Offer emotional support;Offer spiritual/pentecostalism support;Prayer * Valentina Brown MD - 07/26/2024 [...] aureus and CT c/f OM. Tx to [facility] for further evaluation and treatment. Admitted [...] Disposables VTE Prophylaxis: Eliquis PT: PT Recommendation/Plan: Retirement Facility OT:OT Recommendation: Retirement Facility Valentina Brown MD PGY-1 Internal Medicine [...] treatment team and contact the PT or DATA COLLECTION TECHNICIAN currently assigned to this patient. If a physical therapy clinician is not assigned to this patient, please call [phone]. 07/26/24 0903 PT Last Visit Session Type [...] current plan (per PT) Recommendation/Plan PT Recommendation/Plan Retirement Facility Patient at high risk for Falls;Readmission;Injury [...] Reason Procedure/testing/appointment ([facility]ARR[facility] at IR) * Ashley Taylor COLLECTIONS 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 - 07/25/2024 1:56 PM CDT Infectious Disease Subsequent Consult Note Infectious Disease Team: General 1 Contact Information: Please see EPIC Treatment Team listing for up-to-date contact information. 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 She recently [...] in the hospital, now with plans for YFC-vg-lypxoam possibly later this week. Patient has been [...] tests: cmp cbc w diff. Ashley Taylor [facility]- Nurse Practitioner, Infectious Diseases Team 1 Desk: [phone] Team 1 fellow: [phone] After hours please contact the ID fellow at [phone] Cosigned by Bernardino Regan MD at 07/26/2024 [...] placement today - GT case request for tomorrow vs Tuesday to reassess valve - Ongoing [...] mg/dL Glucose comment 1 Glu2: RN/ Notified CBC without differential Collection Time: 07/24/24 [...] 0.01 K/cumm Comprehensive metabolic panel Collection Time: 07/24/24 10:31 PM Result Value Ref Range Sodium [...] IMAGING DATE OF STUDY: 07/23/2024 SCANNER: [facility] Nabto (NV1). This is a high-resolution scanner, which [...] obtained. The study was interpreted on the [employer] workstation. The mean liver SUV (reported for quality lab technician purposes) is 3.0. For evaluation of sarcoidosis, [...] aureus and CT c/f OM. Tx to [facility] for further evaluation and treatment. Admitted [...] Disposables VTE Prophylaxis: Eliquis PT: PT Recommendation/Plan: Retirement Facility OT:OT Recommendation: Retirement Facility Valentina Brown MD PGY-1 Internal Medicine [...] FDG-PET/CT IMAGING DATE OF STUDY: 07/23/2024 SCANNER: [facility] N Nabto (NV1). This is a high-resolution scanner, which [...] obtained. The study was interpreted on the [employer] workstation. The mean liver SUV (reported for quality lab technician purposes) is 3.0. For evaluation of sarcoidosis, [...] aureus and CT c/f OM. Tx to [facility] for further evaluation and treatment. Admitted [...] 06/13. 07/01 blood cx were drawn x2, 1 then second set / MSSA. Vanc+ Ancef [...] sitter - Psychiatry consulted, appreciate further recommendations. Martil 2 mg PRN for agitation, avoid further [...] TIDAC #Anemia: Hgb 10.8 on arrival. Bl: 11-. MCV elevated. B12 > 1000 at OSH, [...] Disposables VTE Prophylaxis: Eliquis PT: PT Recommendation/Plan: Retirement Facility OT:OT Recommendation: Retirement Facility Valentina Brown MD PGY-1 Internal Medicine [...] Chávez MD 07/24/2024 6:26 PM * Adal Manuel, OT - 07/24/2024 10:25 AM CDT Occupational [...] not assigned to this patient, please call [phone]. 07/24/24 1027 General Session Type Treatment OT Received On [...] this the discharge summary Recommendation/Plan OT Recommendation Retirement Facility Patient at high risk for Falls;Readmission;Injury [...] mobility training;Functional transfer training;Strengthening;Therapeutic activity;Therapeutic exercise;Transfer traini felipe Progress during current admission Progressing toward goals [...] CDT Spiritual Care Note Chaplain Noah Vick [phone] 07/23/24 1530 Time Spent Start Time 1515 [...] Active listening;Explore maira and values;Offer emotional support;Offer spiritual/pentecostalism support * Valentina Brown MD - 07/23/2024 [...] tablet 5 mg 5 mg oral Q12H [facility] ceFAZolin (ANCEF) 2,000 mg/20 mL in sterile water (premix) 2,000 mg 2,000 mg intravenous Q8H [facility] escitalopram (LEXAPRO) tablet 10 mg 10 mg [...] flush 0.5-20 mL 0.5-20 mL intra-catheter Q8H [facility] spironolactone (ALDACTONE) split tablet 12.5 mg 12.5 [...] IMAGING DATE OF STUDY: 07/23/2024 SCANNER: [facility] Nabto (NV1). This is a high-resolution scanner, which [...] obtained. The study was interpreted on the [employer] workstation. The mean liver SUV (reported for quality lab technician purposes) is 3.0. For evaluation of sarcoidosis, [...] aureus and CT c/f OM. Tx to [facility] for further evaluation and treatment. Admitted [...] Disposables VTE Prophylaxis: Eliquis PT: PT Recommendation/Plan: Retirement Facility OT:OT Recommendation: Retirement Facility Valentina Brown MD PGY-1 Internal Medicine [...] Disposables Diet effective now Question Answer Comment ([facility]) Diet type Regular Injury Risk: Send [...] to follow. Jennifer Webb MS, RD, LD [phone] * Valentina Brown MD - 07/22/2024 7:10 [...] aureus and CT c/f OM. Tx to [facility] for further evaluation and treatment. Admitted [...] Disposables VTE Prophylaxis: Eliquis PT: PT Recommendation/Plan: Retirement Facility OT:OT Recommendation: Retirement Facility Valentina Brown MD PGY-1 Internal Medicine [...] all questions were addressed. Russ Pride MD director of player personnel Date of note: 07/22/24. * Valentina Brown [...] tablet 5 mg 5 mg oral Q12H [facility] ceFAZolin (ANCEF) 2,000 mg/20 mL in sterile water (premix) 2,000 mg 2,000 mg intravenous Q8H [facility] escitalopram (LEXAPRO) tablet 10 mg 10 mg [...] flush 0.5-20 mL 0.5-20 mL intra-catheter Q8H [facility] spironolactone (ALDACTONE) split tablet 12.5 mg 12.5 [...] FDG PET report for evaluation of inflammation. (sMarlee Guerin also participated in the interpretation of [...] aureus and CT c/f OM. Tx to [facility] for further evaluation and treatment. Admitted [...] x2, 1/ then second set 2/2 MSSA. Vanc+ Ancef [...] Disposables VTE Prophylaxis: Eliquis PT: PT Recommendation/Plan: Retirement Facility OT:OT Recommendation: Retirement Facility Valentina Brown MD PGY-1 Internal Medicine [...] all questions were addressed. Russ Pride MD director of player personnel Date of note: 07/21/24. * Ha Martinez [...] not assigned to this patient, please call [phone]. 07/20/24 1131 General Session Type Treatment OT Received On [...] this the discharge summary Recommendation/Plan OT Recommendation Retirement Facility Patient at high risk for Falls;Readmission;Injury [...] FDG PET report for evaluation of inflammation. (sMarlee Guerin also participated in the interpretation of [...] aureus and CT c/f OM. Tx to [facility] for further evaluation and treatment. Admitted [...] Prophylaxis: Eliquis 5 BID PT: PT Recommendation/Plan: Retirement Facility OT:OT Recommendation: Retirement Facility Becca Wilcox MD Internal Medicine Resident [...] all questions were addressed. Russ Pride MD director of player personnel Date of note: 07/20/24. * Valentina Brown [...] succinate 75 (increased dose today afterRVR on 07/18), rate controlled after receiving this - Cr [...] tablet 5 mg 5 mg oral Q12H [facility] ceFAZolin (ANCEF) 2,000 mg/20 mL in sterile water (premix) 2,000 mg 2,000 mg intravenous Q8H [facility] escitalopram (LEXAPRO) tablet 10 mg 10 mg [...] flush 0.5-20 mL 0.5-20 mL intra-catheter Q8H [facility] spironolactone (ALDACTONE) split tablet 12.5 mg 12.5 [...] aureus and CT c/f OM. Tx to [facility] for further evaluation and treatment. Admitted [...] Prophylaxis: Eliquis 5 BID PT: PT Recommendation/Plan: Retirement Facility OT:OT Recommendation: Retirement Facility Valentina Brown MD PGY-1 Internal Medicine [...] all questions were addressed. Russ Pride MD director of player personnel Date of note: 07/20/24. * Amberly Neri, EP-C - 07/18/2024 4:34 PM CDT Inpatient Cardiac [...] and ambulation Treatment Progression: progressing well Other Railroad Car Checker Comments: Patient expressed that she did not want to be here in the hospital and wanted to go home but after educating patient about the positives of getting up and movingfrom the bed. Patient was more open to working with me. It's a pleasure to work with this patient. Please reach out with any questions. Amberly Neri M.S., [facility] EP-C Certified Railroad Car Checker [phone] Cardiology [email or web address] * Valentina Brown MD - 07/18/2024 7:17 [...] want a pacemaker, wants to go to heaven - This morning, mood improved. Patient denies [...] tablet 5 mg 5 mg oral Q12H [facility] ceFAZolin (ANCEF) 2,000 mg/20 mL in sterile water (premix) 2,000 mg 2,000 mg intravenous Q8H [facility] escitalopram (LEXAPRO) tablet 10 mg 10 mg [...] aureus and CT c/f OM. Tx to [facility] for further evaluation and treatment. Admitted [...] Prophylaxis: Eliquis 5 BID PT: PT Recommendation/Plan: Retirement Facility OT:OT Recommendation: Retirement Facility Valentina Brown MD PGY-1 Internal Medicine [...] all questions were addressed. Russ Pride MD director of player personnel Date of note: 07/18/24. * Ha Martinez - 07/17/2024 2:39 PM CDT Occupational Therapy [...] not assigned to this patient, please call [phone]. 07/17/24 1134 General Session Type Treatment OT Received On [...] this the discharge summary Recommendation/Plan OT Recommendation Retirement Facility Patient at high risk for Falls;Readmission;Injury [...] tablet 5 mg 5 mg oral Q12H [facility] ceFAZolin (ANCEF) 2,000 mg/20 mL in sterile [...] aureus and CT c/f OM. Tx to [facility] for further evaluation and treatment. Admitted [...] x2, 1/ then second set 2/2 MSSA. Vanc+ Ancef [...] ventricular arrhythmia, not pacer dependent. ICD removed 10/4/24. Per multidisciplinary discussion with CTS, valvular, not [...] Disposition: pending Best contact: Primary Emergency Contact: Moise,Dilia Diet: Adult Diet Restricted; 2 GM Sodium, Low Fat, Low Chol VTE Prophylaxis: Eliquis 5 BID PT: PT Recommendation/Plan: Retirement Facility OT:OT Recommendation: Retirement Facility Valentina Brown MD PGY-1 Internal Medicine [...] all questions were addressed. Russ Pride MD director of player personnel Date of note: 07/17/24. * Valentina Brown [...] aureus and CT c/f OM. Tx to [facility] for further evaluation and treatment. Admitted [...] Prophylaxis: Eliquis 5 BID PT: PT Recommendation/Plan: Retirement Facility OT:OT Recommendation: Retirement Facility Valentina Brown MD PGY-1 Internal Medicine [...] all questions were addressed. Russ Pride MD director of player personnel Date of note: 07/16/24. * Jennifer Webb, RD - 07/16/2024 3:26 PM CDT Nutrition Screen [...] Dietary Orders (From admission, onward) Start Ordered 07/13/241743 Adult Diet Restricted; 2 GM Sodium, Low Fat, Low Chol Diet effective now Question Answer Comment ([facility]) Diet type Restricted Fat / Sodium Restriction: [...] to follow. Jennifer Webb MS, RD, LD [phone] * Tim Strong MD - 07/15/2024 3:18 PM CDT Vascular Surgery Consult Daily Progress Patient Name/MRN: Lei Rodriguez [id number] Attending: Ynes Roman MD Today's Date: 07/15/2024 Room/Bed: [id number] Admit Date: 07/07/2024 Code Status: Full Code [...] tablet 5 mg 5 mg oral Q12H [facility] Becca Wilcox MD 5 mg at 07/15/24 0845 Carrier Fluids for Secondary Infusion - 0.9% Sodium Chloride 30 mL intravenous PRN Marylou Saravia MD ceFAZolin (ANCEF) 2,000 mg/20 mL in sterile water (premix) 2,000 mg 2,000 mg intravenous Q8H [facility] Marylou Saravia MD 2,000 mg at 07/15/24 [...] 75 mcg 75 mcg oral Daily - 599 Marylou Saravia MD 75 mcg at 07/15/24 [...] 10 mg 10 mg oral Daily Marylou Saraiva MD 10 mg at 07/15/24 0845 ondansetron [...] Vascular surgery will sign off. Please call [phone] with vascular consult questions 02/05. Tim Strong [...] data in the 24 hours ending 07/15/24 0943 Current Medications Scheduled Meds: Scheduled Medications Medication [...] Liban Graff M.D. ASSESSMENT & PLAN Lei Rordiguez is a 63 y.o. female with a PMHx significant for MSSA bacteremia (05/2024), A-fib,HFrEF (EF 30%), T2DM, GERD, Intellectual disability, OAB, JOSE, and hypothyroidism who presented to OSH 06/28 for back pain. Found to have + blood cx for staph aureus and CT c/f OM. Tx to [facility] for further evaluation and treatment. Admitted [...] x2, 1/ then second set 2/2 MSSA. Vanc+ Ancef [...] Prophylaxis: Eliquis 5 BID PT: PT Recommendation/Plan: Retirement Facility OT:OT Recommendation: Retirement Facility Valentina Brown MD PGY-1 Internal Medicine [...] on IV abx, appreciated ID recommendations for jail tx. CTS and vascular to weigh on [...] flush 0.5-20 mL 0.5-20 mL intra-catheter Q8H [facility] spironolactone (ALDACTONE) split tablet 12.5 mg 12.5 [...] PM Result Value Ref Range Product code [id number] Unit Number [id number] Product Blood Type OPOS Dispense Status RETURNED Product code [id number] Unit Number [id number] Product Blood Type OPOS Dispense Status RETURNED [...] test: 07/10/2024 Date of : 1960 () Hospital #: 0 Location: [facility] Cardiac Diagnostic Lab Interpreted by: Da Ayala MD Pick Out Hand: Emily King MD RN: Reason for Test: [...] 3=Akinetic 4=Dyskin. 5=Aneurysm 0=Not visualized) Short [place]-Gastric:=2 S=2 I=2 P=2 L=2 A=2 Long [place]-Gastric:BP=2 BA=2 MP=2 MA=2 AP=2 AA=2 Chamber Dimensions: [...] 07/10/2024 - 12:46:57 by Da Ayala MD Car Shunter: Emily King By signing this report, the attending coning machine operator certifies that he or she has personally [...] inferior: hypokinetic 16- Apical septal: hypokinetic 17- [place]: hypokinetic Valves: Aortic Valve: Annulus: normal Leaflet [...] aureus and CT c/f OM. Tx to [facility] for further evaluation and treatment. Admitted [...] VTE Prophylaxis: Heparin gtt PT: PT Recommendation/Plan: Retirement Facility OT:OT Recommendation: Retirement Facility (Simultaneous filing. User may not have [...] not assigned to this patient, please call [phone]. 07/13/24 1119 General Chart Reviewed Yes Session Type Treatment [...] this the discharge summary Recommendation/Plan OT Recommendation Retirement Facility Patient at high risk for Falls;Readmission;Injury [...] (premix) 2,000 mg 2,000 mg intravenous Q8H [facility] escitalopram (LEXAPRO) tablet 10 mg 10 mg [...] : 1960 (F) Hospital #: 0 Location: [facility] Cardiac Diagnostic Lab Interpreted by: Da Ayala MD Pick Out Hand: Emily King MD RN: Reason for Test: [...] 3=Akinetic 4=Dyskin. 5=Aneurysm 0=Not visualized) Short [place]-Gastric:=2 S=2 I=2 P=2 L=2 A=2 Long [place]-Gastric:BP=2 BA=2 MP=2 MA=2 AP=2 AA=2 Chamber Dimensions: [...] 07/10/2024 - 12:46:57 by Da Ayala MD Car Shunter: Emily King By signing this report, the attending coning machine operator certifies that he or she has personally [...] aureus and CT c/f OM. Tx to [facility] for further evaluation and treatment. Admitted [...] x2, 1/ then second set / MSSA. Vanc + [...] VTE Prophylaxis: Heparin gtt PT: PT Recommendation/Plan: Retirement Facility OT:OT Recommendation: Retirement Facility Azeem Mai MD Internal Medicine Resident [...] (premix) 2,000 mg 2,000 mg intravenous Q8H [facility] escitalopram (LEXAPRO) tablet 10 mg 10 mg [...] : 1960 (F) Hospital #: 0 Location: [facility] Cardiac Diagnostic Lab Interpreted by: Da Ayala MD Pick Out Hand: Emily King MD RN: Reason for Test: [...] 3=Akinetic 4=Dyskin. 5=Aneurysm 0=Not visualized) Short [place]-Gastric:=2 S=2 I=2 P=2 L=2 A=2 Long [place]-Gastric:BP=2 BA=2 MP=2 MA=2 AP=2 AA=2 Chamber Dimensions: [...] 07/10/2024 - 12:46:57 by Da Ayala MD Car Shunter: Emily King By signing this report, the attending coning machine operator certifies that he or she has personally [...] aureus and CT c/f OM. Tx to [facility] for further evaluation and treatment. Admitted [...] continue Ancef 2g Q8 - ICD: placed 2016 per sister, recurrent [...] VTE Prophylaxis: Heparin gtt PT: PT Recommendation/Plan: Retirement Facility OT:OT Recommendation: Retirement Facility Becca Wilcox MD Internal Medicine Resident [...] Consult Daily Progress Patient Name/MRN: Lei Rodriguez [id number] Attending: Elvira Cooper MD Today's Date: 07/12/2024 Room/Bed: [id number] Admit Date: 07/07/2024 Code Status: Full Code [...] (premix) 2,000 mg 2,000 mg intravenous Q8H [facility] Marylou Saravia MD 2,000 mg at 07/12/24 0536 cyclobenzaprine (FLEXERIL) tablet 5 mg 5 mg oral TID PRN Marylou Saravia MD 5 mg at 07/11/24 2107 dextrose gel in packet 15 g 15 [...] Nightly Valentina Brown MD 1 Units at 07/11/24 2108 insulin lispro (HumaLOG, ADMELOG) 100 unit/mL injection 9 Units 9 Units subcutaneous TID with mealsValentina Brown MD 9 Units at 07/11/24 1745 levothyroxine [...] PRN Marylou Saravia MD 8 mg at 07/11/24 2108 sacubitriL-valsartan (ENTRESTO) 24-26 mg tablet 1 tablet 1 tablet oral BID Marylou Saravia MD 1 tablet at 07/11/24 210 senna-docusate (PERICOLACE) 8.6-50 mg per tablet 1 tablet 1 tablet oral BID Marylou Saravia MD 1 tablet at 07/11/24 2108 sodium chloride 0.9% flush 0.5-20 mL 0.5-20 mL intra-catheter Q8H [facility] Marylou Saravia MD10 mL at 07/12/24 0536 [...] Labs: Recent Labs Lab Units 07/12/24 0813 07/11/[id number]/11/[id number] SODIUM mmol/L -- 136 -- -- 134* [...] interval not displayed. Recent Labs Lab Units 07/11/24211807/10/[id number]/[id number] 06/28/24 2134 07/07/24 0134 WBC K/cumm 4.7 5.9 7.6 < > [...] Vascular surgery will sign off. Please call [phone] with vascular consult questions 02/05. Ha Griffiths [...] oral Nightly PRN 8 mg at 07/10/24 2157 sodium chloride 0.9% flush 0.5-20 mL 0.5-20 [...] test: 07/10/2024 Date of : 1960 () [facility] #: 0 Location: [facility] Cardiac Diagnostic Lab Interpreted by: Da Ayala MD Pick Out Hand: Emily King MD RN: Reason for Test: [...] 3=Akinetic 4=Dyskin. 5=Aneurysm 0=Not visualized) Short [place]-Gastric:=2 S=2 I=2 P=2 L=2 A=2 Long [place]-Gastric:BP=2 BA=2 MP=2 MA=2 AP=2 AA=2 Chamber Dimensions: [...] MS, mild TV regurgitation, normal PV. Emily Fernando performed the GT probe placement with Da [...] 07/10/2024 - 12:46:57 by Da Ayala MD Car Shunter: Emily King By signing this report, the attending coning machine operator certifies that he or she has personally [...] aureus and CT c/f OM. Tx to [facility] for further evaluation and treatment. #MSSA [...] continue Ancef 2g Q8 - ICD: placed 2016 per sister, recurrent [...] VTE Prophylaxis: Heparin gtt PT: PT Recommendation/Plan: Retirement Facility OT:OT Recommendation: Retirement Facility Valentina Brown MD PGY-1 Internal Medicine [...] examined. ICD lead extraction to be scheduled Friday 07/[address] Baig and myself, [...] 3=Akinetic 4=Dyskin. 5=Aneurysm 0=Not visualized) Short [place]-Gastric:=2 S=2 I=2 P=2 L=2 A=2 Long [place]-Gastric:BP=2 BA=2 MP=2 MA=2 AP=2 AA=2 Chamber Dimensions: [...] aureus and CT c/f OM. Tx to [facility] for further evaluation and treatment. #MSSA [...] Ancef 2g Q8, outside hospital susceptibilities in paper control clerk, susceptible to oxacillin - ICD: placed 2016 [...] on ICD, thrombus in [place] - updated database reporting consultant recommendations pending #HFrEF EF of 30% [...] VTE Prophylaxis: Heparin gtt PT: PT Recommendation/Plan: Retirement Facility OT:OT Recommendation: Retirement Facility Cosigned by Ynes Roman MD at [...] (premix) 2,000 mg 2,000 mg intravenous Q8H [facility] escitalopram (LEXAPRO) tablet 10 mg 10 mg [...] flush 0.5-20 mL 0.5-20 mL intra-catheter Q8H [facility] spironolactone (ALDACTONE) split tablet 12.5 mg 12.5 [...] #: 0 Date of : 1960 (F) Pick Out Hand: Linda Caputo RDCS Referring Physician: ELVIRA COOPER MD Contrast Agent: 0.45 ml Definity Administered, (1.05 ml wasted). Contrast Administered by: Hailee Burroughs RN Supervised/Interpreted by: Nikko Greenwood MD. Diagnosis: Location: [facility] Reason for test: c/f vegetation on pacer [...] 2=Hypo 3=Akinetic 4=Dyskin./Aneurysm 0=Not visualized) Parasternal Long [place]:MAS=2 BAS=2 MIL=2 HECTOR=2 Parasternal Short [place]:MAS=2 MIS=2 OR=2 MIL=2 MAL=2 MA=2 Apical 4 Chambers:=2 MIS=2 BIS=2 BAL=2 MAL=2 AL=2 AC=2 Apical 2 Chambers:AI=2 OR=2 BI=2 BA=2 MA=2 AA=2 AC=2 LV Global Longitudinal Strain: RV Global Longitudinal Strain: LV Function: Moderate Global reduction in LV Ejection Fraction (EF=30-40%); EF via modified Marsh's. RV Function: Normal Septal Motion: Normal Pericardial Effusion: small Atrial Septum: Normal DOPPLER/COLOR FLOW DOPPLER RESULTS: Diastolic Function: indeterminate Tricuspid Valve: mild TV regurgitation Pulmonic Valve: mild DC AV Regurgitation: Mild AR AV Stenosis: no AV Area: cm2 AV Pressure Gradient (mmHg): Mean: 0, Peak:0 MV Regurgitation: Mild MR MV Stenosis: no MS MV Area: cm2 MV Pressure Gradient (mmHg): Mean: 0 MV ERO: cm Regurg. Vol.: ml/beat Regurg. Frac.: % PA Pressure: 28 mmHg DOPPLER/COLOR FOLOW DOPPLER COMMENTS: Mild AR, Mild MR, no , no MS, mild TV regurgitation, mild DC. Diastolic function: indeterminate CONTRAST: 0.45 ml Definity [...] MD. By signing this report, the attending coning machine operator certifies that he or she has personally supervised and interpreted the echocardiogram and has reviewed and or edited and agrees with the written comments contained within the report. Neuro CT Outside Consult Narrative: EXAMINATION: RADIOLOGY CONSULTATION ON OUTSIDE IMAGING STUDY STUDY INITIALLY PERFORMED: 06/10/2024 and 07/02/2024 at [facility]. TYPE OF STUDY: Multiple CT images [...] herniation or hydrocephalus. CT cervical spine: Multilevel hakp-bj-mjwjjtxa degenerative change without high-grade spinal canal or neural foraminal narrowing. No CT evidence of osteomyelitis in the cervical spine. Thoracic spine: Multilevel vgth-fv-iwprnagn degenerative change without high-grade spinal canal or neural foraminal narrowing. No CT evidence of osteomyelitis in the cervical spine. Mediastinal adenopathy, cardiomegaly, pericardial effusion and lung nodules are better evaluated on concurrent CT chest, abdomen and pelvis. Lumbar spine: Multilevel biib-tz-ytqxqgdv degenerative change without high-grade spinal canal or [...] images may or may not represent the [place] source data set and thus may contain changes that may lower the accuracy of this second-opinion interpretation. Electronically signed by: Carlota Murguia M.D. Neuro CT Outside Consult Narrative: EXAMINATION: RADIOLOGY CONSULTATION ON OUTSIDE IMAGING STUDY STUDY INITIALLY PERFORMED: 06/10/2024 and 07/02/2024 at [facility]. TYPE OF STUDY: Multiple CT images [...] herniation or hydrocephalus. CT cervical spine: Multilevel efcr-og-zbezpdlb degenerative change without high-grade spinal canal or neural foraminal narrowing. No CT evidence of osteomyelitis in the cervical spine. Thoracic spine: Multilevel cyeu-fa-kziilgsg degenerative change without high-grade spinal canal or neural foraminal narrowing. No CT evidence of osteomyelitis in the cervical spine. Mediastinal adenopathy, cardiomegaly, pericardial effusion and lung nodules are better evaluated on concurrent CT chest, abdomen and pelvis. Lumbar spine: Multilevel wnlw-fs-yhoyqolf degenerative change without high-grade spinal canal or [...] images may or may not represent the [place] source data set and thus may contain changes that may lower the accuracy of this second-opinion interpretation. Electronically signed by: Carlota Murguia M.D. Neuro CT Outside Consult Narrative: EXAMINATION: RADIOLOGY CONSULTATION ON OUTSIDE IMAGING STUDY STUDY INITIALLY PERFORMED: 06/10/2024 and 07/02/2024 at [facility]. TYPE OF STUDY: Multiple CT images [...] herniation or hydrocephalus. CT cervical spine: Multilevel qtrf-bo-fhygoxpy degenerative change without high-grade spinal canal or neural foraminal narrowing. No CT evidence of osteomyelitis in the cervical spine. Thoracic spine: Multilevel kplk-ul-wmwyxtjx degenerative change without high-grade spinal canal or neural foraminal narrowing. No CT evidence of osteomyelitis in the cervical spine. Mediastinal adenopathy, cardiomegaly, pericardial effusion and lung nodules are better evaluated on concurrent CT chest, abdomen and pelvis. Lumbar spine: Multilevel nxlb-ul-wuikqgwr degenerative change without high-grade spinal canal or [...] images may or may not represent the [place] source data set and thus may contain changes that may lower the accuracy of this second-opinion interpretation. Electronically signed by: Carlota Murguia M.D. Neuro CT Outside Consult Narrative: EXAMINATION: RADIOLOGY CONSULTATION ON OUTSIDE IMAGING STUDY STUDY INITIALLY PERFORMED: 06/10/2024 and 07/02/2024 at [facility]. TYPE OF STUDY: Multiple CT images [...] herniation or hydrocephalus. CT cervical spine: Multilevel aqla-mf-fgerjwzd degenerative change without high-grade spinal canal or neural foraminal narrowing. No CT evidence of osteomyelitis in the cervical spine. Thoracic spine: Multilevel zlbr-av-qxknfgfj degenerative change without high-grade spinal canal or neural foraminal narrowing. No CT evidence of osteomyelitis in the cervical spine. Mediastinal adenopathy, cardiomegaly, pericardial effusion and lung nodules are better evaluated on concurrent CT chest, abdomen and pelvis. Lumbar spine: Multilevel dhuj-cw-bvrigful degenerative change without high-grade spinal canal or [...] images may or may not represent the [place] source data set and thus may contain changes that may lower the accuracy of this second-opinion interpretation. Electronically signed by: Carlota Murguia M.D. CT Body Outside Consult Narrative: EXAMINATION: RADIOLOGY CONSULTATION ON OUTSIDE IMAGING STUDY STUDY INITIALLY PERFORMED: 06/28/2024 and 07/06/2024 at [facility]. TYPE OF STUDY: Multiple CT images of [...] images may or may not represent the [place] source data set and thus may contain changes that may lower the accuracy of this second-opinion interpretation. Electronically signed by: Geo Patel MD, PHD CT Body Outside Consult Narrative: EXAMINATION: RADIOLOGY CONSULTATION ON OUTSIDE IMAGING STUDY STUDY INITIALLY PERFORMED: 06/28/2024 and 07/06/2024 at [facility]. TYPE OF STUDY: Multiple CT images of [...] images may or may not represent the [place] source data set and thus may contain changes that may lower the accuracy of this second-opinion interpretation. Electronically signed by: Geo Patel MD, PHD US Outside Consult Narrative: EXAMINATION: RADIOLOGY CONSULTATION ON OUTSIDE IMAGING STUDY STUDY INITIALLY PERFORMED: 07/01/2024 at [facility]. TYPE OF STUDY: Multiple ultrasound images without [...] the available images, which may not be community relations representative of the entire organ or disease entity. Also note that ultrasound image acquisition is two needle machine operator dependent, and that the study was performed outside our facility with no control over image acquisition. In addition, the provided images may or may not represent the [place] source data set and thus may contain [...] of this study generated by a [facility] Radiologist. Electronically signed by: Kevin Gottlieb M.D. XR Outside Reference Narrative: EXAMINATION: Images For Reference Purposes Only Impression: These images are for Reference purposes only and have not been reviewed by [facility] Radiology. There will be no report generated by a [facility] Radiologist. ASSESSMENT & PLAN 63 y.o. female with a PMHx significant for MSSA bacteremia (05/2024), A-fib, HFrEF (EF 30%), T2DM, GERD, Intellectual disability, OAB, JOSE, and hypothyroidism who presented to OSH 06/28 for back pain. Found to have + blood cx for staph aureus and CT c/f OM. Tx to [facility] for further evaluation and treatment. #MSSA [...] x2, 1/ then second set / MSSA. Vanc + [...] Ancef 2g Q8, outside hospital susceptibilities in paper control clerk, susceptible to oxacillin - ICD: placed 2016 [...] infectious source - GT pending, NPO at [place], scheduled for tomorrow #Persistent atrial fibrillation #MAULIK [...] VTE Prophylaxis: heparin gtt PT: PT Recommendation/Plan: Retirement Facility OT: Valentina Brown MD PGY-1 Internal Medicine Cosigned by Ynes Roman MD at 07/09/2024 9:41 PM CDT Associated attestation - Ynes Roman MD - 07/09/2024 9:41 PM CDT [...] fingers. Sister the phone and informed this advertising copywriter that pt is not allow to have red-sauce due to allergy. This advertising copywriter then took the lunch tray away and called dietary for a different tray and notified dietary of such restriction. Then when this advertising copywriter came back, overheard the sister on the [...] alternative and pt refused. WCTM. * Ashley Travis, [facility] - 07/09/2024 12:56 PM CDT Pharmacist Home Medication Review The clinical pharmacy operations manager has completed a medication review with the [...] less than 90mmHg) 30 tablet 0 multivit nufdokvl-xkrw-BY-calcium (THERA-M) 9 mg iron-400 mcg tablet Take [...] antibiotics) Ashley Wills, KaylaD, BCPS, BCCP Clinical Legal Support Specialist - Cardiology/Transitions of Care [phone] 07/09/24 * Amina Martin OT - 07/09/2024 11:25 AM CDT Occupational [...] not assigned to this patient, please call [phone]. 07/09/24 1128 General Chart Reviewed Yes Session Type Evaluation [...] Equipment-Currently Using Wheeled walker Home ADL Equipment-Available Bedspread Inspector Home ADL Equipment-Currently Using Bedspread Inspector Prior Function Level of [place] Independent with ADLs;Independent functional transfers;Independent with ambulation;Needs assistance with homemaking (pt has assist prn from her sister who is her choreworker to help with sock or shoes and/or bathing, but sometimes pt does this on her own per pt report today.) Lives With Alone Receives Help From Family (2 sister: Zoe. one of them is her hired choreworker [...] to situation (pt thought she was at [facility]) Following Commands Follows one step commands with [...] name and address after me Angel Dawson [address] [place] [address] Without looking at the clock, tell me [...] this the discharge summary Recommendation/Plan OT Recommendation Retirement Facility Patient at high risk for Falls;Readmission;Injury [...] treatment team and contact the PT or DATA COLLECTION TECHNICIAN currently assigned to this patient. If a physical therapy clinician is not assigned to this patient, please call [phone]. 07/08/24 8709 General Chart Reviewed Yes Session Type Evaluation [...] Using Wheeled walker Prior Function Level of [place] Independent functional transfers;Independent with ambulation Lives With [...] with Outstretched Arm While Standing 0 9. Helper/Driver Object from Floor from a Standing Position [...] summary;Plan of care initiated Recommendation/Plan PT Recommendation/Plan Retirement Facility Patient at high risk for Falls;Readmission;Injury [...] (premix) 2,000 mg 2,000 mg intravenous Q8H [facility] escitalopram (LEXAPRO) tablet 10 mg 10 mg [...] 0.5-20 mL 0.5-20 mL intra-catheter Q8H [facility] Continuous Meds: Current Facility-Administered Medications Medication Dose Route Frequency Last Admin heparin 0-33 Units/kg/hr intravenous Titrated 16 Units/kg/hr at 07/08/24 0639 PRN Meds: PRN Medications Medication Dose Route Frequency Last Admin acetaminophen (TYLENOL) tablet 650 mg 650 mg oral Q4H PRN 650 mg at 07/07/24 181 Carrier Fluids for Secondary Infusion - 0.9% Sodium Chloride 30 mL intravenous PRN cyclobenzaprine (FLEXERIL) tablet 5 mg 5 mg oral TID PRN 5 mg at 07/07/24 181 dextrose gel in packet 15 g 15 [...] #: 0 Date of : 1960 (F) Pick Out Hand: Linda Caputo [facility] Referring Physician: ELVIRA COOPER MD Contrast Agent: 0.45 ml Definity Administered, (1.05 ml wasted). Contrast Administered by: Hailee Burroughs RN Supervised/Interpreted by: Nikko Greenwood MD. Diagnosis: Location: [facility] Reason for test: c/f vegetation on pacer [...] 2=Hypo 3=Akinetic 4=Dyskin./Aneurysm 0=Not visualized) Parasternal Long [place]:MAS=2 BAS=2 MIL=2 HECTOR=2 Parasternal Short [place]:MAS=2 MIS=2 OR=2 MIL=2 MAL=2 MA=2 Apical 4 Chambers:=2 MIS=2 BIS=2 BAL=2 MAL=2 AL=2 AC=2 Apical 2 Chambers:AI=2 OR=2 BI=2 BA=2 MA=2 AA=2 AC=2 LV Global Longitudinal Strain: RV Global Longitudinal Strain: LV Function: Moderate Global reduction in LV Ejection Fraction (EF=30-40%); EF via modified Marsh's. RV Function: Normal Septal Motion: Normal Pericardial Effusion: small Atrial Septum: Normal DOPPLER/COLOR FLOW DOPPLER RESULTS: Diastolic Function: indeterminate Tricuspid Valve: mild TV regurgitation Pulmonic Valve: mild DC AV Regurgitation: Mild AR AV Stenosis: no AV Area: cm2 AV Pressure Gradient (mmHg): Mean: 0, Peak:0 MV Regurgitation: Mild MR MV Stenosis: no MS MV Area: cm2 MV Pressure Gradient (mmHg): Mean: 0 MV ERO: cm Regurg. Vol.: ml/beat Regurg. Frac.: % PA Pressure: 28 mmHg DOPPLER/COLOR FOLOW DOPPLER COMMENTS: Mild AR, Mild MR, no , no MS, mild TV regurgitation, mild DC. Diastolic function: indeterminate CONTRAST: 0.45 ml Definity [...] MD. By signing this report, the attending coning machine operator certifies that he or she has personally supervised and interpreted the echocardiogram and has reviewed and or edited and agrees with the written comments contained within the report. Neuro CT Outside Consult Narrative: EXAMINATION: RADIOLOGY CONSULTATION ON OUTSIDE IMAGING STUDY STUDY INITIALLY PERFORMED: 06/10/2024 and 07/02/2024 at [facility]. TYPE OF STUDY: Multiple CT images [...] herniation or hydrocephalus. CT cervical spine: Multilevel qgty-ac-lahrtaih degenerative change without high-grade spinal canal or neural foraminal narrowing. No CT evidence of osteomyelitis in the cervical spine. Thoracic spine: Multilevel hcwb-up-tvqfhoif degenerative change without high-grade spinal canal or neural foraminal narrowing. No CT evidence of osteomyelitis in the cervical spine. Mediastinal adenopathy, cardiomegaly, pericardial effusion and lung nodules are better evaluated on concurrent CT chest, abdomen and pelvis. Lumbar spine: Multilevel huzq-oj-puspwrsi degenerative change without high-grade spinal canal or [...] images may or may not represent the walk[place] river source data set and thus may contain changes that may lower the accuracy of this second-opinion interpretation. Electronically signed by: Carlota Murguia M.D. Neuro CT Outside Consult Narrative: EXAMINATION: RADIOLOGY CONSULTATION ON OUTSIDE IMAGING STUDY STUDY INITIALLY PERFORMED: 06/10/2024 and 07/02/2024 at [facility]. TYPE OF STUDY: Multiple CT images [...] herniation or hydrocephalus. CT cervical spine: Multilevel tive-zm-arcyndzv degenerative change without high-grade spinal canal or neural foraminal narrowing. No CT evidence of osteomyelitis in the cervical spine. Thoracic spine: Multilevel ofef-sd-tdldvjnj degenerative change without high-grade spinal canal or neural foraminal narrowing. No CT evidence of osteomyelitis in the cervical spine. Mediastinal adenopathy, cardiomegaly, pericardial effusion and lung nodules are better evaluated on concurrent CT chest, abdomen and pelvis. Lumbar spine: Multilevel lywr-hc-wrpgedjc degenerative change without high-grade spinal canal or [...] images may or may not represent the walk[place] source data set and thus may contain changes that may lower the accuracy of this second-opinion interpretation. Electronically signed by: Carlota Murguia M.D. Neuro CT Outside Consult Narrative: EXAMINATION: RADIOLOGY CONSULTATION ON OUTSIDE IMAGING STUDY STUDY INITIALLY PERFORMED: 06/10/2024 and 07/02/2024 at [facility]. TYPE OF STUDY: Multiple CT images [...] herniation or hydrocephalus. CT cervical spine: Multilevel hokp-qj-fjhohepk degenerative change without high-grade spinal canal or neural foraminal narrowing. No CT evidence of osteomyelitis in the cervical spine. Thoracic spine: Multilevel agtt-ar-iyhclzwb degenerative change without high-grade spinal canal or neural foraminal narrowing. No CT evidence of osteomyelitis in the cervical spine. Mediastinal adenopathy, cardiomegaly, pericardial effusion and lung nodules are better evaluated on concurrent CT chest, abdomen and pelvis. Lumbar spine: Multilevel serm-lu-pckyexpy degenerative change without high-grade spinal canal or [...] images may or may not represent the walk[place] source data set and thus may contain changes that may lower the accuracy of this second-opinion interpretation. Electronically signed by: Carlota Murguia M.D. Neuro CT Outside Consult Narrative: EXAMINATION: RADIOLOGY CONSULTATION ON OUTSIDE IMAGING STUDY STUDY INITIALLY PERFORMED: 06/10/2024 and 07/02/2024 at [facility]. TYPE OF STUDY: Multiple CT images [...] herniation or hydrocephalus. CT cervical spine: Multilevel svoz-uv-kxswnfwi degenerative change without high-grade spinal canal or neural foraminal narrowing. No CT evidence of osteomyelitis in the cervical spine. Thoracic spine: Multilevel lxic-de-kiorovli degenerative change without high-grade spinal canal or neural foraminal narrowing. No CT evidence of osteomyelitis in the cervical spine. Mediastinal adenopathy, cardiomegaly, pericardial effusion and lung nodules are better evaluated on concurrent CT chest, abdomen and pelvis. Lumbar spine: Multilevel kpxi-bp-vacyylzc degenerative change without high-grade spinal canal or [...] images may or may not represent the walk[place] source data set and thus may contain changes that may lower the accuracy of this second-opinion interpretation. Electronically signed by: Carlota Mruguia M.D. CT Body Outside Consult Narrative: EXAMINATION: RADIOLOGY CONSULTATION ON OUTSIDE IMAGING STUDY STUDY INITIALLY PERFORMED: 06/28/2024 and 07/06/2024 at [facility]. TYPE OF STUDY: Multiple CT images of [...] images may or may not represent the walk[place] river source data set and thus may contain changes that may lower the accuracy of this second-opinion interpretation. Electronically signed by: Geo Patel MD, PHD CT Body Outside Consult Narrative: EXAMINATION: RADIOLOGY CONSULTATION ON OUTSIDE IMAGING STUDY STUDY INITIALLY PERFORMED: 06/28/2024 and 07/06/2024 at [facility]. TYPE OF STUDY: Multiple CT images of [...] images may or may not represent the walk[place] river source data set and thus may contain changes that may lower the accuracy of this second-opinion interpretation. Electronically signed by: Geo Patel MD, PHD US Outside Consult Narrative: EXAMINATION: RADIOLOGY CONSULTATION ON OUTSIDE IMAGING STUDY STUDY INITIALLY PERFORMED: 07/01/2024 at [facility]. TYPE OF STUDY: Multiple ultrasound images without [...] the available images, which may not be community relations representative of the entire organ or disease entity. Also note that ultrasound image acquisition is two needle machine operator dependent, and that the study was performed outside our facility with no control over image acquisition. In addition, the provided images may or may not represent the walker river source data set and thus may contain [...] of this study generated by a [facility] Radiologist. Electronically signed by: Kevin Gottlieb M.D. XR Outside Reference Narrative: EXAMINATION: Images For Reference Purposes Only Impression: These images are for Reference purposes only and have not been reviewed by [facility]iology. There will be no report generated by a [facility] Radiologist. ASSESSMENT & PLAN 63 y.o. female with a PMHx significant for MSSA bacteremia (05/2024), A-fib, HFrEF (EF 30%), T2DM, GERD, Intellectual disability, OAB, JOSE, and hypothyroidism who presented to OSH 06/28 for back pain. Found to have + blood cx for staph aureus and CT c/f OM. Tx to [facility] for further evaluation and treatment. #MSSA [...] Ancef 2g Q8, outside hospital susceptibilities in paper control clerk, susceptible to oxacillin - TTE performed to re-evaluate leads demonstrating echodensity on V lead of ICD. Will likely require ICD removal - GT pending, NPO at [place] in case can be performed tomorrow - [...] Xarelto, RC with Coreg. Afterprior discharge, hospital coning machine operator recommended stop Tikosyn and continue beta danny for rate control. At OSH, dual tim blockade with Dilt and Metop. Stopped Dilt 2/2 reduced EF. On Metop now. - anticoagulation: Heparin gtt - rate control with Metop given recent Afib RVR #HFrEF EF of 30% on 05/2024 echocardiogram, mild-mod MR, RVSP 42 mild-mod TR. OSH had patient on [id number] t.i.d., discontinued. GDMT: Coreg 25 BID, Farxiga [...] Aureus and CT c/f OM, transferred to [facility] for further treatment. TTE on 07-07-24 showed a small 9x7mm mobile echo density attached to the V Lead, and EF=30%. GT requested to further evaluate for endocarditis. GT Indication: rule out endocarditis Decisional capacity to consent for GT? no (please list POA & explanation) - We will need to consent her sister Anibal Moise [phone] or Peg Rice [phone] Prior GT? no Details of prior GT: [...] a past medical history of A-fib (CMS/HCC) ([facility]), CHF (congestive heart failure) (CMS/HCC)([facility]), Diabetes mellitus ([facility]), GERD (gastroesophageal reflux disease), Hypertension, Intellectual disability, [...] tablet midodrine (PROAMATINE) 5 mg tablet multivit nbxquoge-akuv-ZW-calcium (THERA-M) 9 mg iron-400 mcg tablet nortriptyline [...] and Imaging: Reviewed Plan: Proceed with GT King MD Car Shunter Time: 8:37 AM Date: 07/10/2024 Cosigned by Da Ayala MD at 07/10/2024 11:28 AM CDT Associated attestation - Da Ayala MD - 07/10/2024 11:28 AM CDT Discussed GT with the patient and her sisters (by phone), who provided consent. Proceed with GT. * Marylou Saravia MD - 07/07/2024 12:15 AM CDT CARDIOLOGY ADMISSION HISTORY AND PHYSICAL Patient: Lei Calderon [place] Room: [id number] Date: 07/07/2024 SUBJECTIVE CHIEF COMPLAINT Back pain HISTORY OF PRESENT ILLNESS 63 y.o. female with a PMHx significant for MSSA bacteremia (05/2024), A-fib, HFrEF (EF 30%), T2DM, GERD, Intellectual disability, OAB, JOSE, and hypothyroidism who presented to OSH 06/28 for back pain. Found to have + blood cx for staph aureus and CT c/f OM. Tx to [facility] for further evaluation and treatment. Information provided by patient's sister Dilia over the phone. Dilia is the patient's primary door frame assembler machine at this time and is also the medical decision maker along with their other sister Peg. PerDilia, patient had back/flank pain going on for [...] differently when she has a UTI. At [facility]: Vital signs on arrival with heart rate [...] further evaluation. Patient was recently admitted to [facility] in 05/2024 for bacteremia. She was initially admitted to [facility] on 05/21 and found to have MSSA bacteremia. Tx to [facility] 05/30 for concern for endocarditis. TTE and [...] HISTORY Past Medical History: Diagnosis Date A-fib (CMS/HCC) (HCC) CHF (congestive heart failure) (CMS/[facility]) (HCC) Diabetes mellitus (HCC) GERD (gastroesophageal reflux [...] less than 90mmHg) 30 tablet 0 multivit gvcwelgm-ssps-NQ-calcium (THERA-M) 9 mg iron-400 mcg tablet Take [...] 0 pen needle, diabetic 32 gauge x 5/32 needle Use as directed 3 times a day. 100 each 0 potassium chloride ER 20 mEq CR tablet Take 1 tablet (20 mEq total) by mouth daily Xarelto 20 mg tablet Take 1 tablet (20 mg total) by mouth daily with dinner CURRENT MEDICATIONS Scheduled Meds: Scheduled Meds:ceFAZolin, 2,000 mg, intravenous, Q8H [facility] escitalopram, 10 [...] chloride 0.9%, 0.5-20 mL, intra-catheter, Q8H [facility] Continuous Infusions: PRN Meds:. acetaminophen sodium chloride [...] aureus and CT c/f OM. Tx to [facility] for further evaluation and treatment. #MSSA [...] Xarelto, RC with Coreg. Afterprior discharge, hospital coning machine operator recommended stop Tikosyn and continue beta danny for rate control. At OSH, dual tim blockade with Dilt and Metop. Stopped Dilt 2/2 reduced EF. On Metop now. - anticoagulation: Heparin gtt - rate control with Metop given recent Afib RVR #HFrEF EF of 30% on 05/2024 echocardiogram, mild-mod MR, RVSP 42 mild-mod TR. OSH had patient on ibohwxdap12 t.i.d., discontinued. GDMT: Coreg 25 BID, Farxiga [...] or providers from different services): records from [facility]. Assessment required an independent historian, additional information [...] in this encounter Procedure Notes * Zeenat Hdz RN - 07/23/2024 6:13 PM CDT Images [...] = Cosigned By Initials Name FS Zeenat Hdz, BROWN Haynes, Coleen Oneal RN Vascular Access Documentation (Last 4 Hours) [facility] Additional Procedures Row Name 07/23/24 0039 PICC Screening Questionnaire Order written on the [...] Posterior;Right Hand IV Properties Placement Date: 07/21/24 - Placement Time: 141 - Type: Angiocath -EH Size (Gauge): 22 G -EH Location Orientation: Posterior;Right -EH Location: Hand -EH Site Prep: Chlorhexidine;Alcohol - Technique: Anatomical landmarks - Inserted by: emily - Insertion attempts: 1 -EH Patient Tolerance: Tolerated well - User Vaz (r) = Recorded By, (t) = Taken By, (c) = Cosigned By Initials Name Emily Root Zeenat Hdz RN Plan:VAS attempted Left only PICC placement [...] sister Dilia Moise, seemingly reliable, reached at [phone] - Review of the EMR - PDMP website, no records GUARDIANSHIP: No Patient is her own guardian, but her two sisters help make medical decisions for her (no formal advance directives or power of casino cage manager documents). CHIEF COMPLAINT: Mind your own [employer] business! HISTORY OF PRESENT ILLNESS: Lei Rodriguez [...] collateral sources. Patient's psychiatric history began in early interventionist with intellectual disability, requiring special schooling (did [...] aureus and CT c/f OM, transferred to [facility] on 07/08/24 for further evaluation and [...] want a pacemaker, wanting to go to [facility]. Today, she began thr owing lunch tray, [...] Endocarditis Past Medical History: Diagnosis Date A-fib (CMS/HCC) [...] tablet 5 mg 5 mg oral Q12H Becca Mcdowell MD 5 mg at 07/18/24 0904 Carrier Fluids for Secondary Infusion - 0.9% Sodium Chloride 30 mL intravenous PRN Marylou Saravia MD ceFAZolin (ANCEF) 2,000 mg/20 mL in sterile water (premix) 2,000 mg 2,000 mg intravenous Q8H [facility] Marylou Saravia MD 2,000 mg at 07/18/24 0516 cyclobenzaprine (FLEXERIL) tablet 5 mg 5 mg oral TID PRN Marylou Saravia MD 5 mg at 07/15/24 2219 dextrose gel [...] Becca Wilcox MD 22 Units at 07/18/24 09 insulin lispro (HumaLOG, ADMELOG) 100 unit/mL injection 0-10 Units 0-10 Units subcutaneous TID withmeals Valentina Brown MD 4 Units at 07/18/24 09 insulin lispro (HumaLOG, ADMELOG) 100 unit/mL injection 0-5 Units 0-5 Units subcutaneous Nightly Valentina Brown MD 4 Units at 07/17/242108 insulin lispro (HumaLOG, ADMELOG) 100 unit/mL injection 9 Units 9 Units subcutaneous TID with Becca Diallo MD 9 Units at 07/18/24904 Lactated Ringer's (LR) infusion 30 mL/hr intravenous [...] Daily Marylou Saravia MD 400 mg at 07/18/24903 metoprolol XL (TOPROL-XL) extended release tablet 50 mg 50 mg oral Daily Marylou Saravia MD 50 mg at 07/18/24903 mirabegron ER (MYRBETRIQ) extended release tablet 25 mg 25 mg oral Daily Marylou Saravia MD 25 mg at 07/18/24903 nortriptyline (PAMELOR) capsule 10 mg 10 mg oral Daily Marylou Saravia MD 10 mg at 07/18/24903 ondansetron ODT (ZOFRAN-ODT) disintegrating tablet 4 mg 4 mg oral Q6H PRN Marylou Saravia MD Or ondansetron (ZOFRAN) injection 4 mg 4 mg intravenous Q6H PRN Marylou Saravia MD 4 mg at 07/13/[address] (PROTONIX) extended release tablet 20 mg 20 mg oral Daily Marylou Saravia MD 20 mg at 07/18/24 0904 polyethylene glycol (MIRALAX) packet 17 g 17 g oral Daily PRN Marylou Saravia MD ramelteon (ROZEREM) tablet 8 mg 8 mg oral Nightly PRN Marylou Saravia MD 8 mg at 07/14/24 2134 sacubitriL-valsartan (ENTRESTO) 24-26 mg tablet 1 tablet 1 tablet oral BID Marylou Saravia MD 1 tablet at 07/18/24 0904 senna-docusate (PERICOLACE) 8.6-50 mg per tablet 1 [...] Not on file SOCIAL HISTORY: Born in [place], [place]; and raised in: [place], [place] Siblings: at least 2 sisters Marital status: since 2015 Currently lives in: apartment alone, but nephew lives next door and sister Dilia is her assistant manager retail and is frequently at her place Education: [...] K/cumm PRIMARY CONSULT DIAGNOSIS: IDD ASSESSMENT: Lei oRdriguez is a 63 y.o. female with history [...] please contact the Psychiatry Consult Service at [phone]. All recommendations preliminary until note has been cosigned/attested by a Psychiatry attending (Tuesday - Tuesday during regular business hours). Carmencita Stovall MD Cosigned by Yon Rebolledo MD at 07/19/2024 6:52 PM CDT * Tim Strong MD - 07/11/2024 3:52 PM CDTAssociated Order(s): IP CONSULT TO VASCULAR SURGERY Vascular Surgery Consultation Patient Name/MRN: Lei Rodriguez [id number] Reason for Consult: vegetation on TV in patient with recurrent MSSA bacteremia, consideration of angiovac Attending: Elvira Cooper MD Today's Date: 07/11/2024 Admitting Service: Cardiology Admitting location: [id number] Admit Date: 07/07/2024 Code Status: Full Code CC: No chief complaint on file. HPI: 63-year-old female with a history of AFIB, HFrEF, ICD, T2DM, GERD, Intellectual Disability, JOSE, Hypothyroidism, and MSSA bacteremia in (05/2024). She presented to outside hospital for back pain was found to have staph aureus bacteremia with CT findings concerning for osteomyelitis and was transferred to [facility]. GT performed yesterday demonstrated 1.2 x [...] less than 90mmHg) 30 tablet 0 multivit mtajtfoh-hqjh-JB-calcium (THERA-M) 9 mg iron-400 mcg tablet Take [...] tablet 400 mg 400 mg oral Daily aMrylou Saravia MD 400 mg at 07/11/24 1041 [...] PRN Marylou Saravia MD 8 mg at 07/10/247 sacubitriL-valsartan (ENTRESTO) 24-26 mg tablet 1 tablet [...] surgery will continue to follow. Please call [phone] with vascular consult questions 02/05. The recommendations [...] ICD infection. Patient had initially presented to [facility] in May 2024 with complaints of left-sided [...] on 05/29/2024. She was later transferred to [facility] on 05/29/2024 . Repeat TTE done on [...] hospital load. She was discharged to the custodial on 06/08/2024. While at the custodial, she started having nausea, vomiting with associated headaches. She then felt dizzy had an episode of falling forward and hitting her head. EMS was called and patient was transferred to [facility] then to [facility]. Interrogation at [facility] revealed that she had 5 episodes of ventricular fibrillation that were appropriately treated with ICD shocks. On admission, dofetilide was discontinued and her escitalopram was also reduced. New setof blood cultures will obtained on 06/13/2024 given low-grade fever pre and she was then dischargedon 06/21 back to her custodial. However, she re- presented appropriate severe low back pain. CT spine did not show evidence of osteomyelitis however MRI was recommended and patient was referred to [place] for cardiac MRI given the presence of an implantable cardiac device. Patient seen at the bedside, cmplains of lower back and flank pain. Not able to give much history Review of Systems: Review of systems as per HPI and, otherwise all other systems are negative. PMHX: has a past medical history of A-fib (CMS/HCC) ([facility]), CHF (congestive heart failure) (CMS/HCC)([facility]), Diabetes mellitus ([facility]), GERD (gastroesophageal reflux disease), Hypertension, Intellectual disability, [...] tablet midodrine (PROAMATINE) 5 mg tablet multivit ieemtrwu-pcgu-OL-calcium (THERA-M) 9 mg iron-400 mcg tablet nortriptyline [...] K/cumm 339 Recent Labs Lab Units 07/07/24 0134 SODIUM mmol/L 136 POTASSIUM PLASMA mmol/L See Comment CHLORIDE mmol/L 99 CO2 mmol/L 29 ANIONGAP mmol/L 8 BUN SERUM mg/dL 15 CREATININE mg/dL 0.65 CALCIUM mg/dL 8.9 MAGNESIUM mg/dL 1.9 Recent Labs Lab Units 07/07/24 0134 ALBUMIN g/dL 3.0* ALK PHOS Units/L 182* AST Units/L See Comment ALT Units/L See Comment BILIRUBIN TOTAL mg/dL 0.4 Recent Labs Lab Units 07/07/24 1247 07/07/24 0134 APTT sec 108* 28 INR -- 1.47* [...] 5PM or on weekends, please page the filling and packing supervisor final operations technician with any questions or concerns. Alyx Gagnon MD Car Shunter 3:48 PM 07/07/24 Cosigned by Kt Callejas [...] 2:53 PM CDT Cardiothoracic Surgery Consult Lei Rodriguez 1960 Reason for Consult: Infected ICD Physician [...] May with bacteremia and was transferred to [facility] for endocarditis workup. TTE and GT were negative for vegetations on valved or ICD leads, however did show MAULIK thrombus. She was treated with ancef x4 weeks. She represented to OSH with complaint of back pain and was found to have positive blood cultures for MSSA. Given back pain concern for ostemyelitis, however MRI unable to be done. Patient transferred to [facility] for further care. She was started [...] tablet midodrine (PROAMATINE) 5 mg tablet multivit xtabmkze-ondr-UX-calcium (THERA-M) 9 mg iron-400 mcg tablet nortriptyline [...] Trent Ureña MD Fellow, Cardiothoracic Surgery [facility] Cosigned by Debra Sinclair MD at 07/08/2024 9:56 AM CDT * Eric Magaña MD - 07/07/2024 10:12 AM CDTAssociated Order(s): CONSULT TO GENERAL INFECTIOUS DISEASE Infectious Disease Initial Consult Note Infectious Disease Team: General 1 Contact Information: Please see [facility] Treatment Team listing for up-to-date contact [...] history of bacteremia, she initially presented to [facility] on 05/21 with complaints of nausea/vomiting and abdominal pain. She was found to have MSSA bacteremia (cultures positive 05/21-05/22, first negative 05/25) and a report of endocarditis, for which she was transferred to [facility] on 05/29 for further care. There, additional [...] recurrent UTI so she brought her to [facility] on 06/28 for evaluation where she was admitted for Afib with RVR. On 07/01 blood cultures were obtained (unclear why) that were positive for MSSA. Follow up cultures from 07/02 were no growth (confirmed with [place] [facility]). Imaging with CT spine did not show any clear osseous involvement, however there was still concern for possible osteomyelitis so she was transferred here [facility] [...] cannot recall why she was brought to [facility] but says her sister Dilia can answer any questions related to her health. She reports some ongoing discomfort around her ICD site. Antibiotics Vancomycin (07/01-07/03) Cefazolin (07/01-present) Past Medical History: No date: A-fib ([facility]) ([facility]) No date: CHF (congestive heart failure) (CMS/[facility]) ([facility]) No date: Diabetes mellitus ([facility]) No date: GERD (gastroesophageal reflux disease) No [...] tablet midodrine (PROAMATINE) 5 mg tablet multivit xschzcce-gdjh-QN-calcium (THERA-M) 9 mg iron-400 mcg tablet nortriptyline [...] (premix) 2,000 mg 2,000 mg intravenous Q8H [facility] Marylou Saravia MD 2,000 mg at 07/07/24 [...] 0.5-20 mL intra-catheter Q8H GALINA Marylou Saravia MD 10 mL at 07/07/24 0544 sodium chloride 0.9% flush 0.5-20 mL 0.5-20 mL intra-catheter PRN Marylou Saravia MD No current [facility]-ordered outpatient medications on file. Anti-infectives (From [...] Virologic Testing: HIV Screen:No results found for: [id number] CD4:No results found for: CD4ABS , CD4PCT Common Virologic Results: No results found for: XMU1YKM , CD4ABS , CD4PCT , NUCLEOSRT , NONNUCRTMUT , PROTEASEMUT , INTEGRASEMUT , PPD , TOXOIGG Diagnostics: EKG:No results found for: VR , AR , PRIMSEC , QRSIMSEC , QTIMSEC , QT , PA , RA , TA , DIAG Echo:Results for orders placed during the hospital encounter of 05/29/24 Transthoracic Echo (TTE) Complete W Doppler/[place] [address] Echocardiogram Report Patient Name: LEI RODRIGUEZ V : 1960 Study Date: 05/30/2024 7:47:08 AM Gender: F Tech: Location: [address] Provider: TY DE SANTIAGO Height(Cm): 165 BSA: [...] Electronically Signed By: Coleen Cortez DO, RUBIO, ANDREE, MELISSA 2024-05-30 09:18:05 CDT CC: CC: CC: Imaging: [...] images may or may not represent the [place] source data set and thus may contain [...] images may or may not represent the [place] source data set and thus may contain changes that may lower the accuracy of this second-opinion interpretation. Electro nically signed by: Geo Patel MD, PHD US Outside Consult Result Date: 07/07/2024 1. No hydronephrosis. The findings and impression are based on the available images, which may not be community relations representative of the entire organ or disease entity. Also note that ultrasound image acquisitionis two needle machine operator dependent, and that the study was performed outside our facility with no control over image acquisition. In addition, the provided images may or may not represent the [place] source data set and thus may contain [...] of this study generated by a [facility] Radiologist. Electronically signed by: Kevin Gottlieb M.D. XR Outside Reference Result Date: 07/07/2024 These images are for Reference purposes only and have not been reviewed by [facility] Radiology. There will be no report generated by a [facility] Radiologist. CT Body Outside Consult Result Date: [...] images may or may not represent the [place] source data set and thus may contain [...] images may or may not represent the [place] source data set and thus may contain changes that may lower the accuracy of this second-opinion interpretation. Electro nically signed by: Geo Patel MD, PHD US Outside Consult Result Date: 07/07/2024 1. No hydronephrosis. The findings and impression are based on the available images, which may not be community relations representative of the entire organ or disease entity. Also note that ultrasound image acquisitionis two needle machine operator dependent, and that the study was performed outside our facility with no control over image acquisition. In addition, the provided images may or may not represent the [place] source data set and thus may contain [...] of this study generated by a [facility] Radiologist. Electronically signed by: Kevin Gottlieb M.D. XR Outside Reference Result Date: 07/07/2024 These images are for Reference purposes only and have not been reviewed by [facility] Radiology. There will be no report generated by a [facility] Radiologist. Assessment/Plan Patient is a 63 y.o. [...] medications being delivered to the hospitality suite. executive legal secretary helped with escorting the family to [...] . Dr. Lazar notified. WCTM * Rony Naylor RN - 07/29/2024 3:59 AM CDT Pt refused [...] Pt is A&Ox4, VSS. Patient returning to [address] A. Report called to BROWN Slaughter .Patient's [...] 07/19/2024 3:46 PM CDT Patient transferred to [facility]. Report called to Maritza DASILVA. Patient transferred [...] from procedure, yelling, pacing, non- compliant.. [facility] , they rounded, pt calmed down for a [...] GT. Patient VSS. Report called to Naa RN and to go back to [id number]. documented [...] disciplines requested: Physical Therapy Primary disciplines requested: Retirement Secondary disciplines requested: Occupational Therapy Home Health [...] ICD-10 Codes (select as many as appropriate): [id number] Infection and inflammatory reaction due to other cardiac and vascular devices When a Kestra Assure is ordered in [facility], the order is automatically faxed to [employer]. Additional patient information is needed. Please enter the date you will fax the patient???s face sheet and supporting documentation to [phone]. 07/31/2024 The fkof-uh-lbkz evaluation was performed on: 07/31/2024 DME services provided by: [facility] 07/31/24 0000 * Plan of Care - Emily Root - 08/02/2024 3:59 PM CDT Goals: Clinical Goals for the Shift: pt will remain HDS, free from active infection, no ectopy, free from falls and report pain under control Sr. Consultant Patient Centered Goal for Treatment: DC w/ [...] from falls and report pain under control Sr. Consultant Patient Centered Goal for Treatment: DC w/ lifevest Summary: Patient participating in care plan goals. Patient verbalized education and is progressing towards goals. * Plan of Care - Emily Root - 08/01/2024 6:34 PM CDT Goals: Clinical Goals for the Shift: HDS Sr. Consultant Patient Centered Goal for Treatment: Safe discharge [...] T2DM, GERD, Intellectual disability who presented to [place] after recent hospitalizations for MSSA bacteremia with [...] x2, 1/ then second set 2/2 MSSA. Ancef restarted. 07/07 cx NGTD. Recurrence [...] mild-mod TR. HFrEF dates back to at [id number], etiology not established. S/p CTA coronary 07/16 [...] dc'ed after 2 weeks of daily refusal * [...] DME Name and Contact Number Carola Shearer ([phone]) Post Acute Care Facility N/A CM Progression of Care Update Per Medical Chart/Rounds/IDR: Patient is not medically ready for discharge. ADD: 08/03/24 Discharge Barriers: Patient to receive 2nd dose of Dalbavancin on . Needs Identified (plan): Patient will not get ICD this admission. placed order for a Carola LARA external defibrillator. CM spoke to Janki Antonio [phone], who stated they will fit the patient this afternoon. YESENIA spoke to an insurance underwriter, Kevin [phone], who was wanting an update about discharge. YESENIA provided a discharge updated and asked Kevin if he could provide home health agencies that accept patient's insurance. Kevin to email YESENIA a list of agencies. Addendum: YESENIA sent home health referrals via [employer]. [facility] accepted. [phone]/fax [phone]. F/U Appointments: To be made closer to discharge. Patient's Identified Problem/Goal Problem:?Ensure acute medical needs are met and that patient has a safe discharge plan. Goal:?Secure a discharge plan that patient/family are agreeable with?and ensure patient has continuum of care. Patient and/or family are agreeable with plan. stock room manager will continue to follow and assist withdischarge planning as needed. If any further discharge needs arise, please contact the covering case advocate. BABAK Aguilar, farmworker general For emergency needs after 4:30 pm, please call the breastfeeding peer counselor . For weekend/holiday needs from 8:00a.m. - 4:30p.m., please check the treatment team in [facility] for theassigned case advocate or contact the weekend Case Management phone . * Plan of Care - Sosa Logan RN - 07/31/2024 8:13 PM CDT Goals: Clinical Goals for the Shift: HDS Sr. Consultant Patient Centered Goal for Treatment: Safe discharge [...] Goals: Clinical Goals for the Shift: HDS Skilled Nursing Patient Centered Goal for Treatment: Safe discharge [...] Goals: Clinical Goals for the Shift: HDS Sr. Consultant Patient Centered Goal for Treatment: Safe discharge [...] Patient and/or family are agreeable with plan. stock room manager will continue to follow and assist with discharge planning as needed. If any further discharge needs arise, please contact the covering case advocate. * Plan of Care - Светлана Ortiz [...] Shift: Stable vital signs, free of falls Sr. Consultant Patient Centered Goal for Treatment: Safe discharge Summary: * Plan of Care - Carlota Aleman RN - 07/30/2024 12:53 AM CDT Goals: Clinical Goals for the Shift: Stable vital signs, free of falls Sr. Consultant Patient Centered Goal for Treatment: Safe discharge [...] for the Shift: pt will remain HDS Sr. Consultant Patient Centered Goal for Treatment: Safe discharge [...] will improve Outcome: Progressing * Plan of Frank - Rony Naylor RN - 07/28/2024 11:22 [...] for the Shift: pt will remain HDS Sr. Consultant Patient Centered Goal for Treatment: Safe discharge Summary: Patient verbalized understanding of care plan and is participating in care. Will continue to monitor patient's progress. * Plan of Care - Bonnie Cage RN - 07/28/2024 9:59 AM CDT Goals: Clinical Goals for the Shift: pt will remain HDS Sr. Consultant Patient Centered Goal for Treatment: Safe discharge [...] Shift: pt will remain HDS, monitor HR Skilled Nursing Patient Centered Goal for Treatment: Safe discharge Summary: Patient verbalized understanding of care plan and is participating in care. Will continue to monitor patient's progress. * Plan of Care - Lou Parmar RN - 07/27/2024 1:39 PM CDT 07/27/24 2768 Discharge Planning Support System Family members Anticipated [...] and will need re-dose in one week. [facility] notified that HI services are no longer [...] Patient and/or family are agreeable with plan. stock room manager will continue to follow and assist withdischarge planning as needed. If any further discharge needs arise, please contact the covering case advocate. BABAK Aguilar, farmworker general For emergency needs after 4:30 pm, please call the breastfeeding peer counselor . For weekend/holiday needs from 8:00a.m. - 4:30p.m., please check the treatment team in [facility] for theassigned case advocate or contact the weekend Case Management phone . * Plan of Care - Karime Ruth RN - 07/27/2024 11:10 AM CDT Goals: Clinical Goals for the Shift: pt will remain HDS, Sr. Consultant Patient Centered Goal for Treatment: Safe discharge [...] for the Shift: pt will remain HDS, Skilled Nursing Patient Centered Goal for Treatment: Safe discharge [...] Shift: Patient will maintain stable vital signs Sr. Consultant Patient Centered Goal for Treatment: Safe discharge Summary: * Plan of Care - Mia Montes - 07/25/2024 8:38 PM CDT Goals: Clinical Goals for the Shift: Patient remains HDS and free of falls Skilled Nursing Patient Centered Goal for Treatment: Safe discharge [...] Outcome: Progressing * Plan of Care - Jessica Lan RN - 07/25/2024 3:30 PM CDT Infusion referral received. Will need to asses patient and/or family for home infusion appropriateness, verify benefits for home infusion, and educate patient/family on home infusion process. Referrals are processed between 8am - 4:30pm Tuesday - Tuesday. For after hour emergencies, please call [phone]. Any referrals received after 4pm will be processed the next day. For discharge planning purposes, please keep in mind that referrals can take 24 or more hours to process. Patient's insurance is OON. I will outsource this infusion referral. 1540: Per team discussion, patient will not have home infusion needs at discharge. clinical research coordinator now signing off. Jessica Lan traverse rod assemblerLaboratory Technology Teacher [facility] [phone] * Plan of Care - Liz Vasquez, BROWN - 07/25/2024 12:06 PM CDT 07/25/24 1206 Discharge Planning Support System Family members (Dilia Moise (Sister) [phone]) Anticipated discharge level of [facility] health care Does the patient need discharge transport arranged? No Post Acute Care Plan Home Care Services Yes Type of Home Care Services Home infusion Home Care Services Name and Phone Number referral sent to [facility] - pending response DME N/A Post Acute Care Facility N/A CM Progression of Care Update Per Medical Chart/Rounds/IDR: Per treatment team, patient will get an echo completed on 07/27. ADD: 08/03 Discharge Barriers: medical readiness Education Needs Identified (plan): CM sent referral to [facility] through [facility] on 07/25. Pending response. Patient is anticipated to dc with IV abx- Cefazolin 2g q 8. Patient recommended for SNF. Patient's sisterDilia contacted treatment team about change in decision and wanting to go home with [place] at dc. F/U Appointments: to be made prior to dc Patient's Identified Problem/Goal Problem:?Ensure acute medical needs are met and that patient has a safe discharge plan. Goal:?Secure a discharge plan that patient/family are agreeable with?and ensure patient has continuum of care. Patient and/or family are agreeable with plan. stock room manager will continue to follow and assist with discharge planning as needed. If any further discharge needs arise, please contact the covering case advocate. * Plan of Care - Lucila Figueroa RN - 07/25/2024 10:03 AM CDT Problem: [...] Shift: Patient will maintain stable vital signs Skilled Nursing Patient Centered Goal for Treatment: Patient will [...] (HCC) 06/11/2024 Chronic diastolic congestive heart failure ([facility]) ([facility]) 06/11/2024 Endocarditis 06/11/2024 Urinary frequency 06/11/2024 Gastroesophageal reflux disease without esophagitis 06/11/2024 Paroxysmal atrial fibrillation ([facility]) ([facility]) 06/11/2024 Major depressive disorder 06/11/2024 CKD (chronic kidney disease) 06/11/2024 Traumatic hematoma of right upper arm 06/06/2024 Hypotension due to drugs 06/06/2024 SOB (shortness of breath) 05/30/2024 Acute on chronic systolic congestive heart failure ([facility]) ([facility]) 05/30/2024 Neck pain 05/30/2024 Hyponatremia 05/30/2024 Chronic a-fib ([facility]) ([facility]) 05/30/2024 Controlled type 2 diabetes mellitus with chronic kidney disease, with long-term current use of insulin ([facility]) 05/30/2024 Hypothyroidism 05/30/2024 JOSE (obstructive sleep apnea) 05/30/2024 Diabetes mellitus with hyperglycemia ([facility]) 05/30/2024 Endocarditis 05/29/2024 History of Sedation/Anesthesia Complications: [...] 5 mg, 5 mg, oral, Q12H GALINA, Becca Wilcox MD, 5 mg at 07/24/24 2211 Carrier Fluids for Secondary Infusion - 0.9% Sodium Chloride, 30 mL, intravenous, PRN, Marylou Saravia MD ceFAZolin (ANCEF) 2,000 mg/20 mL in sterile water (premix) 2,000 mg, 2,000 mg, intravenous, Q8H GALINA, Marylou Saravia MD, 2,000 mg at 07/25/24 0519 cyclobenzaprine (FLEXERIL) tablet 5 mg, 5 mg, oral, TID PRN, Marylou Sraavia MD, 5 mg at1 1133 dextrose gel [...] 0.5-20 mL, 0.5-20 mL, intra-catheter, Q8H GALINA, Marylou Saravia MD, 10 mL at 07/25/24 0519 sodium [...] tablet midodrine (PROAMATINE) 5 mg tablet multivit dcpjccry-omjs-WI-calcium (THERA-M) 9 mg iron-400 mcg tablet nortriptyline (PAMELOR) 10 mg capsule omeprazole (PriLOSEC) 20 mg capsule pen needle, diabetic 32 gauge x /32 needle potassium chloride ER 20 mEq CR [...] 333 319 279 Recent Labs Lab Units 07/24/24223007/23/24203907/20/242022 SODIUM mmol/L 135 136 139 POTASSIUM PLASMA mmol/L 4.3 4.2 4.5 CHLORIDE mmol/L 98 98 101 CO2 mmol/L 27 27 27 BUN SERUM mg/dL 22 25 [...] midnight * Plan of Care - Mervat Thorpe, ANTHONY - 07/25/2024 12:37 AM CDT NPPV - [...] Clinical Goals for the Shift: Stable VS Sr. Consultant Patient Centered Goal for Treatment: Patient will be pain free and stable Summary: Lei is progressing * Plan of Care - Constanza Betancourt RN - 07/24/2024 5:55 PM CDT Goals: Clinical Goals for the Shift: Stable VS Skilled Nursing Patient Centered Goal for Treatment: Patient will be pain free and stable Summary: Patient will remain hemodynamically stable. Patient will remain free from fall/injury. * Plan of Care - Mervat Thorpe, CITY DISPATCH SUPERVISOR - 07/24/2024 12:45 AM CDT NPPV - [...] Shift: Pt will be free of pain Skilled Nursing Patient Centered Goal for Treatment: Patient will [...] Shift: Pt will be free of pain Skilled Nursing Patient Centered Goal for Treatment: Patient will [...] Shift: Pt will be free of pain Sr. Consultant Patient Centered Goal for Treatment: Patient will be pain free and stable Summary: eLi is progressing * Plan of Care - Coleen Haynes RN - 07/22/2024 5:48 PM CDT Problem: [...] Shift: Pt will be free of pain Skilled Nursing Patient Centered Goal for Treatment: Patient will [...] the Shift: Patient will remain HDS overnight Skilled Nursing Patient Centered Goal for Treatment: Patient will [...] Clinical Goals for the Shift: Stable VS Skilled Nursing Patient Centered Goal for Treatment: Patient will [...] the Shift: Patient will remain hemodynamically stable Sr. Consultant Patient Centered Goal for Treatment: Patient will [...] the Shift: Patient will remain hemodynamically stable Skilled Nursing Patient Centered Goal for Treatment: Patient will be pain free and stable Summary: Patient sitting at bedside. Continues on IVPB antibiotics. Alert and oriented X2. * Consults, Subsequent - Son, Carmencitafausto Moreno MD - 07/20/2024 8:07 AM CDT [...] she gets out of here and eating [place] food. She showed me photos of her [...] fair Sensorium: alert and oriented to self, reading hospital, [facility], July 2024, fall (not city or [...] please contact the Psychiatry Consult Service at [phone]. All recommendations preliminary until note has been cosigned/attested by a Psychiatry attending (Tuesday - Tuesday during regular business hours). Cosigned by Yon Rebolledo MD at 07/23/2024 1:52 PM CDT * Plan of Care - Mervat Thorpe, CITY DISPATCH SUPERVISOR - 07/19/2024 11:19 PM CDT NPPV - [...] Shift: VSS, HDS, Pain Managment and Rest Sr. Consultant Patient Centered Goal for Treatment: New Pacemaker Summary: Lei is stable. * Plan of Care - Emily Root - 07/19/2024 10:39 AM CDT Goals: Clinical Goals for the Shift: VSS, HDS, Pain Managment and Rest Skilled Nursing Patient Centered Goal for Treatment: New Pacemaker [...] please contact the Psychiatry Consult Service at [phone]. All recommendations preliminary until note has been cosigned/attested by a Psychiatry attending (Tuesday - Tuesday during regular business hours). Cosigned by Yon Rebolledo MD at 07/19/2024 10:22 PM CDT * Plan of Care - Mervat Thorpe, ANTHONY - 07/19/2024 12:28 AM CDT NPPV - [...] Shift: VSS, HDS, Pain Managment and Rest Sr. Consultant Patient Centered Goal for Treatment: New Pacemaker [...] Patient and/or family are agreeable with plan. stock room manager will continue to follow and assist with discharge planning as needed. If any further discharge needs arise, please contact the covering case advocate. * Plan of Care - Irma Covarrubias RN - 07/18/2024 8:00 AM CDT Goals: Clinical Goals for the Shift: patient will remain hemodynamically stable Sr. Consultant Patient Centered Goal for Treatment: dc to [...] urinary retention Outcome: Progressing * Plan of Frank - Amada Washington RN - 07/18/2024 12:46 [...] the Shift: patient will remain hemodynamically stable Sr. Consultant Patient Centered Goal for Treatment: dc to [...] Interview Note Information Obtained From: Patient Name: sisterDilia martinez ([phone]) and Peg Rice ([phone]) (07/07/24 7109) in the room Admission Source: from OSH ([facility]) Impression: 63 yo female admitted for positive blood cultures and concern for osteomyelitis Plan Includes: to establish a safe discharge plan, patient has PT OT recs for SNF Primary Source of Transportation: Does the patient need discharge transport arranged?: No (07/17/24 1333) Health Insurance Coverage: [facility] Prescription Coverage: yes Pharmacy: [id number] - [place], [place] - [address] [facility] [id number] Primary Care Provider: Oswaldo Serrano MD-pt cannot [...] of Care: Anticipated discharge level of care: long term facility (short term care) Pt/Family agrees with [...] Collaboration with Patient, Provider, Direct Care Nurse, Steel Engraver, and other members of theHealth Care Team to assure needed interventions completed. 2. Return patient to optimal level of self-care post discharge. 3. Scientific Associate will follow for Discharge Planning - interventions [...] the Shift: patient will remain hemodynamically stable Skilled Nursing Patient Centered Goal for Treatment: dc to an appropriate setting Summary: Patient participating in care plan goals. Patient verbalized education and is progressing towards goals. * Plan of Care - Kelly Dunbar - 07/16/2024 9:57 AM [...] the Shift: pt will remain hemodynamically stable Sr. Consultant Patient Centered Goal for Treatment: dc to an appropriate setting Summary: Patient participating in care plan goals. Patient verbalized education and is progressing towards goals. * Consults, Subsequent - Bonnie Villanueva MD PhD - 07/15/2024 4:13 PM CDT Infectious Disease Subsequent Consult Note Infectious Disease Team: General 1 Contact Information: Please see [facility] Treatment Team listing for up-to-date contact [...] images may or may not represent the walker river source data setand thus may contain changes [...] images may or may not represent the walker river source data setand thus may contain changes [...] images may or may not represent the walker river source data setand thus may contain changes [...] images may or may not represent the walker river source data setand thus may contain changes [...] images may or may not represent the walker river source data set and thus may contain [...] images may or may not represent the walker river source data set and thus may contain changes that may lower the accuracy of this second-opinion interpretation. Electro nically signed by: Geo Patel MD, PHD US Outside Consult Result Date: 07/07/2024 1. No hydronephrosis. The findings and impression are based on the available images, which may not be community relations representative of the entire organ or disease entity. Also note that ultrasound image acquisitionis two needle machine operator dependent, and that the study was performed outside our facility with no control over image acquisition. In addition, the provided images may or may not represent the walker river source data set and thus may contain [...] of this study generated by a [facility] Radiologist. Electronically signed by: Kevin Gottlieb M.D. XR Outside Reference Result Date: 07/07/2024 These images are for Reference purposes only and have not been reviewed by [facility] Radiology. There will be no report generated by a [facility] Radiologist. XR Chest 1 View Result Date: [...] the Shift: HDS and free from injury Sr. Consultant Patient Centered Goal for Treatment: dc to [...] the Shift: pt will remain hemodynamically stable Sr. Consultant Patient Centered Goal for Treatment: dc to an appropriate setting Summary: Patient participating in care plan goals. Patient verbalized education and is progressing towards goals. * Plan of Care - Valeria Sabillon RN - 07/14/2024 3:38 PM CDT Goals: Clinical Goals for the Shift: Patient will remain HDs Skilled Nursing Patient Centered Goal for Treatment: dc to [...] the Shift: patient will remain hemodynamically stable Sr. Consultant Patient Centered Goal for Treatment: dc to an appropriate setting Summary: Patient participating in care plan goals. Patient verbalized education and is progressing towards goals. * Op Note - Connie Baig MD - 07/13/2024 4:50 PM CDT DATE OF SURGERY: 07/13/2024 SURGEON: Connie Baig MD FIRST DISCOUNT CLERK: Adithya Whittington MD PREOPERATIVE DIAGNOSIS: MSSA bacteremia [...] scissors. Locking stylettes were introduced. A 13 Kosovan tight rail was used to dilate through the fibrosed area through the innominatevein on both leads. As we transitioned to the SVC, we switched over to the 16 Kosovan laser sheath. Laser was used to free [...] Connie Baig MD Anesthesiologist: Jolanta Abdi MD Marketing Communications Specialist: Stepan Love MD Cooling Tower Operator: Fei Guerrero Cooling Tower Operator Relief: Naa Tapia RN Scrub: Kisha Denney [...] the Shift: pt will remain hemodynamically stable Sr. Consultant Patient Centered Goal for Treatment: dc to [...] 07/12/24 CARE TEAM Patient: Lei Rodriguez Room: [id number] Service: Cardiology Primary Care Physician: Oswaldo Serrano MD Subjective BRIEF HPI Lei Rodriguez is a 63 y.o. female with a hx of MSSA bacteremia 05/2024, A-fib, HFrEF (EF 30%), T2DM, GERD, overactive bladder, obstructive sleep apnea, and intellectual disability who presented to OSH for back pain 06/28 and transferred to [facility] because of concern for osteomyelitis. INTERVAL [...] Chem Recent Labs Lab Units 07/12/24 0813 07/11/24211807/11/24203007/11/2472607/10/24232307/10/2445 07/09/24 2348 07/07/24 0723 07/07/24 0134 SODIUM [...] ALT Units/L 10 8 6* AST Units/L 24 28 26 Coags Recent Labs Lab Units 07/12/24 0417 07/11/24211807/10/24232307/07/24 1247 07/07/24 0134 APTT sec 133* 51* 84* < > 28 INR -- -- -- -- 1.47* < > = values in this interval not displayed. Urine Analysis ABG Micro: IMAGING CURRENT MEDICATIONS Scheduled Medications: ceFAZolin, 2,000 mg, intravenous, Q8H [facility] escitalopram, 10 mg, oral, Daily furosemide, 40 [...] sodium chloride 0.9%, 0.5-20 mL, intra-catheter, Q8H [facility] spironolactone, 12.5 mg, oral, Daily PRN Medications: [...] g ramelteon, 8 mg, 8 mg at 07/11/242107 sodium chloride 0.9%, 0.5-20 mL Assessment/Plan ASSESSMENT AND PLAN Lei Rodriguez is a 63 y.o. female with a hx of MSSA bacteremia 05/2024, A-fib, HFrEF (EF 30%), T2DM, GERD, overactive bladder, obstructive sleep apnea, and intellectual disability who presented to [facility] with back pain concerning for osteomyelitis and who is being managed for MSSA endocarditis. 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 3/ BCx +MSSA bacteremia, no endocarditis. Patient treated with 4 week course Ancef through 06/21 with (-) cultures. However, presented to [facility] for severe back pain, BCx 07/[address] Spine 07/02 (-) for signs osteomyelitis, but transferred to [facility] for rule out and management of [...] LOC with head strike and transferred to [place]. Interrogation revealed 5 episodes of V-fib [...] Relation: Sister Secondary Emergency Contact: Peg Rice [facility] Relation: Sister Anita Victoria [facility] Phase II Student Cosigned by Becca Wilcox [...] the Shift: pt will remain hemodynamically stable Skilled Nursing Patient Centered Goal for Treatment: dc to [...] becomes distressed. * Plan of Care - Suresh-Joanie Nelson RN - 07/11/2024 10:19 PM CDT Goals: Clinical Goals for the Shift: pt will remain hemodynamically stable Sr. Consultant Patient Centered Goal for Treatment: dc to [...] 07/11/24 CARE TEAM Patient: Lei Rodriguez Room: [place] [id number] Service: Cardiology Primary Care Physician: Oswaldo Serrano MD Subjective BRIEF HPI Lei Rodriguez is a 63 y.o. female with a hx of MSSA bacteremia 05/2024, A-fib, HFrEF (EF 30%), T2DM, GERD, overactive bladder, obstructive sleep apnea, and intellectual disability who presented to [facility] for back pain 06/28 and transferred to [facility] because of concern for osteomyelitis. INTERVAL [...] Lab/Radiology/Diagnostic Review: CBC Recent Labs Lab Units 07/10/244 07/09/24 2348 07/08/24 2148 WBC K/cumm 5.9 7.6 6.1 HEMOGLOBIN g/dL 11.3* 10.8* 10.8* HEMATOCRIT % 35.8 33.4* 33.9* PLATELETS K/cumm 352 333 328 Chem Recent Labs Lab Units 07/11/24 1136 07/11/24 0727 07/10/24232307/10/24 0745 07/09/24234707/09/24 0756 07/08/24214707/07/2472207/07/24133 SODIUM mmol/L -- -- 134* -- 136 [...] not displayed. LFTs Recent Labs Lab Units 07/10/24232307/09/24234707/08/242147 ALK PHOS Units/L 176* 162* 171* BILIRUBIN TOTAL mg/dL 0.4 0.4 0.3 TOTAL PROTEIN g/dL 8.0 7.2 7.2 ALT Units/L 8 6* 11 AST Units/L 28 26 35 Coags Recent Labs Lab Units 07/10/24232307/10/24 1659 07/10/24 0643 07/07/24 1247 07/07/24133 APTT sec 84* 92* 119* < > [...] sodium chloride 0.9%, 0.5-20 mL, intra-catheter, Q8H [facility] spironolactone, 12.5 mg, oral, Daily PRN Medications: [...] ramelteon, 8 mg, 8 mg at 07/10/24 2157 sodium chloride 0.9%, 0.5-20 mL Assessment/Plan ASSESSMENT AND PLAN Lei Rodriguez is a 63 y.o. female with a hx of MSSA bacteremia 05/2024, A-fib, HFrEF (EF 30%), T2DM, GERD, overactive bladder, obstructive sleep apnea, and intellectual disability who presented to [facility] with back pain concerning for osteomyelitis and who is being managed for MSSA endocarditis. 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 3/ BCx +MSSA bacteremia, no endocarditis. Patient treated with 4 week course Ancef through 06/21 with (-) cultures. However, presented to [facility] for severe back pain, BCx 07/[address] Spine 07/02 (-) for signs osteomyelitis, but transferred to [facility] for rule out and management of [...] LOC with head strike and transferred to [place]. Interrogation revealed 5 episodes of V-fib [...] Relation: Sister Secondary Emergency Contact: Peg Rice [facility] Relation: Sister Anita Zaidilashae [facility] Phase II Student Cosigned by Becca Wilcox MD at 07/14/2024 5:59 AM CDT * Consults, Subsequent - Eric Magaña MD - 07/11/2024 11:32 AM CDT Infectious Disease Subsequent Consult Note Infectious Disease Team: General 1 Contact Information: Please see [facility] Treatment Team listing for up-to-date contact [...] images may or may not represent the walker river source data setand thus may contain changes [...] images may or may not represent the walker river source data setand thus may contain changes [...] images may or may not represent the walker river source data setand thus may contain changes [...] images may or may not represent the walker river source data setand thus may contain changes [...] images may or may not represent the walker river source data set and thus may contain [...] images may or may not represent the walker river source data set and thus may contain changes that may lower the accuracy of this second-opinion interpretation. Electro nically signed by: Geo Patel MD, PHD US Outside Consult Result Date: 07/07/2024 1. No hydronephrosis. The findings and impression are based on the available images, which may not be community relations representative of the entire organ or disease entity. Also note that ultrasound image acquisitionis two needle machine operator dependent, and that the study was performed outside our facility with no control over image acquisition. In addition, the provided images may or may not represent the walker river source data set and thus may contain [...] of this study generated by a [facility] Radiologist. Electronically signed by: Kevin Gottlieb M.D. XR Outside Reference Result Date: 07/07/2024 These images are for Reference purposes only and have not been reviewed by [facility] Radiology. There will be no report generated by a [facility] Radiologist. No results found. Assessment/Plan Patient is [...] the Shift: HDS and free from injury Sr. Consultant Patient Centered Goal for Treatment: dc to [...] distressed. * Significant Event - Doreen Alaniz COLLECTIONS 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 - 07/10/2024 11:08 PM CDT EP Recommendations for Patients With Implanted Cardiac Devices Undergoing MRI Patient Name: Lei Rodriguez Patient Patient : 1960 Date of Evaluation: [...] present [] Recent history of VT [] Pfl-YCM-[id number] system [] Contraindication for MRI [] LEADS [...] EP will be available by phone at [phone]. Doreen Alaniz MSN, RN, ACNP- Nurse Practitioner, [...] of Service: 07/10/24 CARE TEAM Patient: Lei Calderon [place] Room: [id number] Service: Cardiology Primary Care Physician: Oswaldo Serrano MD Subjective BRIEF HPI Lei Rodriguez is a 63 y.o. female with a hx of MSSA bacteremia 05/2024, A-fib, HFrEF (EF 30%), T2DM, GERD, overactive bladder, obstructive sleep apnea, and intellectual disability who presented to [facility] for back pain 06/28 and transferred to [facility] because of concern for osteomyelitis. INTERVAL [...] Lab/Radiology/Diagnostic Review: CBC Recent Labs Lab Units 07/09/24234707/08/24214707/07/242133 WBC K/cumm 7.6 6.1 6.1 HEMOGLOBIN g/dL 10.8* 10.8* 9.9* HEMATOCRIT % 33.4* 33.9* 30.4* PLATELETS K/cumm 333 328 310 Chem Recent Labs Lab Units 07/10/24 0745 07/09/24 2348 07/09/246 07/09/24 0756 07/08/24214707/08/24 0740 07/07/24 2134 07/07/24 0723 07/07/24 0134 SODIUM mmol/L -- [...] not displayed. LFTs Recent Labs Lab Units 07/09/24 2348 07/08/24 2148 07/07/24 2134 ALK PHOS Units/L 162* 171* 174* BILIRUBIN TOTAL mg/dL 0.4 0.3 0.3 TOTAL PROTEIN g/dL 7.2 7.2 6.7 ALT Units/L 6* 11 15 AST Units/L 26 35 42 Coags Recent Labs Lab Units 07/10/24 0643 07/09/24 2348 07/09/24 1627 07/07/24 1247 07/07/24 0134 APTT sec [...] apnea, and intellectual disability who presented to [facility] with back pain concerning for osteomyelitis and who is being managed for MSSA endocarditis. 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 3/ BCx +MSSA bacteremia, no endocarditis. Patient treated with 4 week course Ancef through 06/21 with (-) cultures. However, presented to [facility] for severe back pain, BCx 07/[address] Spine 07/02 (-) for signs osteomyelitis, but transferred to [facility] for rule out and management of [...] LOC with head strike and transferred to [place]. Interrogation revealed 5 episodes of V-fib [...] Relation: Sister Secondary Emergency Contact: Peg Rice [facility] Relation: Sister Anita Victoria [facility] Phase II Student Cosigned by Becca Wilcox MD at 07/14/2024 5:58 AM CDT * Plan of Care - Liban Santiago RRT - 07/10/2024 12:26 AM CDT NPPV - [...] the Shift: HDS and free from injury Skilled Nursing Patient Centered Goal for Treatment: dc to an appropriate setting Summary: progressing toward goal * Medical Student - Anita Victoria BS - 07/09/2024 7:48 AM CDT MEDICINE DAILY PROGRESS NOTE Date of Admission: 07/07/2024 Date of Service: 07/09/24 CARE TEAM Patient: Lei Rodriguez Room: [place] [id number] [id number] Service: Cardiology Primary Care Physician: Oswaldo Serrano MD Subjective BRIEF HPI Lei Rodriguez is a 63 y.o. female with a hx of MSSA bacteremia 05/2024, A-fib, HFrEF (EF 30%), T2DM, GERD, overactive bladder, obstructive sleep apnea, and intellectual disability who presented to [facility] for back pain 06/28 and transferred to [facility] because of concern for osteomyelitis. INTERVAL [...] Lab/Radiology/Diagnostic Review: CBC Recent Labs Lab Units 07/08/248 07/07/24 2134 07/07/24 0134 WBC K/cumm 6.1 6.1 7.7 HEMOGLOBIN g/dL 10.8* 9.9* 10.8* HEMATOCRIT % 33.9* 30.4* 33.2* PLATELETS K/cumm 328 310 339 Chem Recent Labs Lab Units 07/08/24214707/08/24201507/08/24 1544 07/08/24 0740 07/07/24213307/07/2423 07/07/24 013 SODIUM mmol/L 135 -- -- -- 136 [...] not displayed. 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 #recurrent MSSA bacteremia Patient presented to [facility] in May 2024 with left-sided abdominal pain, nausea, vomiting and diarrhea, intermittent fever. 12/10 BCx +MSSA bacteremia, no endocarditis. Patient treated with 4 week course Ancef through 06/21 with (-) cultures. However, presented to [facility] for severe back pain, BCx 07/[address] Spine 07/02 (-) for signs osteomyelitis, but transferred to [facility] for rule out and management of [...] LOC with head strike and transferred to [place]. Interrogation revealed 5 episodes of V-fib [...] Relation: Sister Secondary Emergency Contact: Peg Rice [facility] Relation: Sister Anita Victoria [facility] Phase II Student Cosigned by Becca Wilcox [...] Team: General 1 Contact Information: Please see [facility] Treatment Team listing for up-to-date contact information. [...] images may or may not represent the walker river source data setand thus may contain changes [...] images may or may not represent the walker river source data setand thus may contain changes [...] recommendations within this report do not replace theinitial findings, conclusions and recommendations made at the facility where the study was performed based upon the imaging and clinical condition at that time. Comparison with the prior report and clinical history is necessary. The provided images may or may not represent the walker river source data set and thus may contain changes that may lower the accuracy of this second-opinion interpretation. El ectronically signed by: Carlota Murguia M.D. Neuro CT [...] images may or may not represent the walker river source data setand thus may contain changes [...] images may or may not represent the walker river source data set and thus may contain [...] images may or may not represent the walker river source data set and thus may contain changes that may lower the accuracy of this second-opinion interpretation. Electr onically signed by: Geo Patel MD, PHD US Outside Consult Result Date: 07/07/2024 1. No hydronephrosis. The findings and impression are based on the available images, which may not be community relations representative of the entire organ or disease entity. Also note that ultrasound image acquisitionis two needle machine operator dependent, and that the study was performed outside our facility with no control over image acquisition. In addition, the provided images may or may not represent the walker river source data set and thus may contain [...] of this study generated by a [facility] Radiologist. Electronically signed by: Kevin Gottlieb M.D. XR Outside Reference Result Date: 07/07/2024 These images are for Reference purposes only and have not been reviewed by [facility] Radiology. There will be no report generated by a [facility] Radiologist. Neuro CT Outside Consult Result Date: [...] images may or may not represent the walker river source data setand thus may contain changes [...] images may or may not represent the walker river source data setand thus may contain changes [...] images may or may not represent the walker river source data setand thus may contain changes [...] images may or may not represent the walker river source data setand thus may contain changes [...] images may or may not represent the walker river source data set and thus may contain [...] images may or may not represent the walker river source data set and thus may contain changes that may lower the accuracy of this second-opinion interpretation. Electro nically signed by: Geo Patel MD, PHD US Outside Consult Result Date: 07/07/2024 1. No hydronephrosis. The findings and impression are based on the available images, which may not be community relations representative of the entire organ or disease entity. Also note that ultrasound image acquisitionis two needle machine operator dependent, and that the study was performed outside our facility with no control over image acquisition. In addition, the provided images may or may not represent the walker river source data set and thus may contain [...] of this study generated by a [facility] Radiologist. Electronically signed by: Kevin Gottlieb M.D. XR Outside Reference Result Date: 07/07/2024 These images are for Reference purposes only and have not been reviewed by [facility] Radiology. There will be no report generated by a [facility] Radiologist. Assessment/Plan Patient is a 63 y.o. [...] PM CDT Orders received for NPPV at [facility] for pt's known sleep apnea. RT spoke [...] Obtained From: Other (Specify) Name: Dilia ryan ([phone]) and Peg Rice ([phone]) Marital Status: Does Pt have Legal Guardian, Surrogate Decision Maker or Healthcare Agent? : Yes-patient stated Patient Stated Surrogate Name/Phone: Dilia womack ([phone]) Employment Status: Disabled Payor Source: Medicaid Race: [...] Other Family Member Name/Contact Information: Dilia ryan ([phone]) and Peg Rice ([phone]) Do you have a Hindu Preference or Affiliation?: Yes Preference/Affiliation : Christain Are there any Hindu Practices that are important to maintain while [...] Two): Interpersonal relationships and supports,i.e., family, friends, peers,Cultural/spiritual/pentecostalism and community involvement, Vocational interests, i.e., hobbies Patient Assets: MD, Disability income, Insured, Supportive family Does Pt have access to Employee Assistance Program: No Patient Barriers : Poor physical health Current Stressors: Chronic illness (07/07/24 0415) SDOH Transportation Needs: No Transportation Needs (07/07/2024) [...] More than three times a week Attends Hindu Services: Never Active Member of Clubs or [...] No Current Plans to Harm Another: No (07/07/24414) Impressions and Recommendations: Social Work Note: Social Work was consulted for 30-Day readmission, an IP-3 within a 1yr period, and a readmission risk score of 24%. Pt (Lei Rodriguez) (1960) is a female, who was admitted to [facility] on 07/07/2024 for Osteomyelitis (HCC) [M86.9]. Current address is [facility] [address] [place] [id number]. Current phone number is [phone] (home) . Throughout the assessment, the pt had good eye contact and was forthcoming with information. Pt wasn't able to answer some questions and called her sisters on speaker phone sisters, Dilia Moise ([phone]) and Peg Rice ([phone]), who willing participated in the assessment. Pt identified her strong support systems as her sisters, Dilia Moise ([phone]) and Peg Rice ([phone]). Pt reported family will assist with her transportation needs. Pt did not identify any concerns with housing, financial strain, or food insecurity. Pt has the insurance [employer]. Patient's sister Dilia Pineda is her door frame assembler machine through the agency [employer] and providers daily [...] days Social Work to work with following CM for discharge planning and social concerns as needed. Carlota Dawson MSW, NUCLEAR MONITORING TECHNICIAN documented in this encounter Plan of [...] Acute on chronic systolic congestive heart failure ([facility]/HCC) (HCC) Expected: 08/03/2024, Expires: 01/31/2026 documented as [...] AM CDT POCT GLUCOSE DEVICE Routine 07/30/2024 8:25 AM CDT EGFR Routine 07/29/2024 10:10 PM [...] AM CDT POCT GLUCOSE DEVICE Routine 07/14/2024 8:17 AM CDT CBC WITHOUT DIFFERENTIAL Routine 07/13/2024 [...] - DEVICE Final Result Performing Organization Address [facility] Co de Phone Number [facility] Department [place] [address] * POCT glucose (08/02/2024 11:49 AM CDT) Glucose, POC 189 70 - 199 mg/dL Blood 08/02/2024 11:4 9 AM CDT 08/02/2024 11:49 AM CDT Russ Pride MD LAB POCT ORDERABLES - DEVICE Final Result Performing Organization Address [facility] de Phone Number [facility] Department [place] [address] * POCT glucose (08/02/2024 8:33 AM CDT) Glucose, POC 142 70 - 199 mg/dL Blood 08/02/2024 8:33 AM CDT 08/02/2024 8:33 AM CDT Russ Pride MD LAB POCT ORDERABLES - DEVICE Final Result Performing Organization Address [facility] de Phone Number [facility] Department [place] [address] * eGFR (08/01/2024 8:56 PM CDT) eGFR [...] ORDERABLES Ayanna l Result Performing Organization Address City/[facility]/ZIP Co de Phone Number [facility] Department [place] [address] * Magnesium (08/01/2024 8:56 PM CDT) [facility] Magnesium 2.1 1.4 - 2.5 mg/dL Blood 08/01/2024 8:56 PM CDT 08/01/2024 9:48 PM CDT us Ynes Roman MD LAB BLOOD ORDERABLES Ayanna l Result Performing Organization Address [facility] Co de Phone Number [facility] Department [place] [address] * (ABNORMAL) Comprehensive metabolic panel (08/01/2024 8:56 PM CDT) [facility] Sodium 136 135 - 145 mmol/L Potassium, pl 3.8 3.3 - 4.9 mmol/L [facility] Chloride 99 97 - 110 mmol/L [facility] CO2 28 22 - 32 mmol/L [facility] Anion gap 9 2 - 15 mmol/L [facility] BUN 20 6 - 25 mg/dL [facility] Creatinine 0.93 0.60 - 1.10 mg/dL [facility] Glucose 191 70 - 199 mg/dL [facility] Comment: Interpretive Data Fasting glucose >/= [...] 2022. Calcium 9.3 8.5 - 10.3 mg/dL [facility] Bilirubin, total 0.2 0.1 - 1.2 mg/dL [facility] Protein, pl 7.0 6.5 - 8.5 g/dL [facility] Albumin 3.2(L) 3.5 - 5.0 g/dL [facility] Alk phos 151(H) 40 - 130 Units/L [facility] ALT 18 7 - 45 Units/L [facility] AST 31 10 - 45 Units/L [facility] Blood 08/01/2024 8:56 PM CDT 08/01/2024 9:48 PM CDT us Elvira Cooper MD LAB BLOOD ORDERABLES Ayanna vazquez Result [facility] Department of Laboratories [place], [place] [id number] * (ABNORMAL) CBC without differential (08/01/2024 8:56 PM CDT) Pathologist [facility] WBC 6.3 3.8 - 9.9 K/cumm Hgb 11.3(L) 11.9 - 15.5 g/dL [facility] Hct 34.4(L) 35.6 - 45.5 % [facility] Plt 228 150 - 400 K/cumm [facility] MPV 9.7 9.1 - 12.3 fL [facility] RBC 3.49(L) 3.90 - 5.20 M/cumm [facility] MCV 98.6(H) 81.3 - 96.4 fL [facility] MCH 32.4 27.1 - 33.3 pg [facility] MCHC 32.8 32.3 - 35.7 g/dL [facility] RDW CV 13.2 11.1 - 14.9 % [facility] RDW SD 47.4 35.7 - 48.1 fL [facility] NRBC abs 0.00 0.00 - 0.01 K/cumm [facility] Blood 08/01/2024 8:56 PM CDT 08/01/2024 9:50 PM CDT Elvira Cooper MD LAB BLOOD ORDERABLES Ayanna l Result [facility] Department [place] [address] * POCT glucose (08/01/2024 8:55 PM CDT) Glucose, POC 192 70 - 199 mg/dL Blood 08/01/2024 8:55 PM CDT 08/01/2024 8:55 PM CDT us Russ Pride MD LAB POCT ORDERABLES - DEVICE Final Result Performing Organization Address City/[facility]/ZIP Co de Phone Number [facility] Department [place] [address] * (ABNORMAL) POCT glucose (08/01/2024 4:48 PM CDT) Glucose, POC 231(H) 70 - 199 mg/dL Blood 08/01/2024 4:48 PM CDT 08/01/2024 4:48 PM CDT Russ Pride MD LAB POCT ORDERABLES - DEVICE Final Result Performing Organization Address [facility] Co de Phone Number [facility] [place] [address] * POCT glucose (08/01/2024 2:44 PM CDT) Glucose, POC 91 70 - 199 mg/dL Blood 08/01/2024 2:44 PM CDT 08/01/2024 2:44 PM CDT Russ Pride MD LAB POCT ORDERABLES - DEVICE Final Result Performing Organization Address [facility] de Phone Number [facility] [place] [address] * (ABNORMAL) POCT glucose (08/01/2024 11:41 AM CDT) Glucose, POC 232(H) 70 - 199 mg/dL Blood 08/01/2024 11:4 1 AM CDT 08/01/2024 11:41 AM CDT Russ Pride MD LAB POCT ORDERABLES - DEVICE Final Result Performing Organization Address [facility] Co de Phone Number [facility] [place] [address] * POCT glucose (08/01/2024 8:02 AM CDT) Glucose, POC 199 70 - 199 mg/dL Blood 08/01/2024 8:02 AM CDT 08/01/2024 8:02 AM CDT Russ Pride MD LAB POCT ORDERABLES - DEVICE Final Result Performing Organization Address City/[facility] Co de Phone Number [facility] Department [place] [address] * Potassium, whole blood (08/01/2024 5:22 AM CDT) Potassium, bld 4.2 3.3 - 4.9 mmol/L Blood 08/01/2024 5:22 AM CDT 08/01/2024 5:48 AM CDT us Russ Pride MD LAB BLOOD ORDERABLES Final Re sult [facility] [place] [address] * eGFR (07/31/2024 10:13 PM CDT) eGFR [...] LAB BLOOD ORDERABLES Ayanna l Result [facility] Department [place] [address] * Magnesium (07/31/2024 10:13 PM CDT) Pathologist [facility] Magnesium 1.9 1.4 - 2.5 mg/dL Blood 07/31/2024 10:1 3 PM CDT 07/31/2024 10:52 PM CDT Result [facility] Ynes Roamn MD LAB BLOOD ORDERABLES Ayanna l Result Performing Organization Address [facility] Co de Phone Number [facility] Department [place] [address] * (ABNORMAL) Comprehensive metabolic panel (07/31/2024 10:13 PM CDT) [facility] Sodium 138 135 - 145 mmol/L Potassium, pl 4.2 3.3 - 4.9 mmol/L [facility] Comment:Hemolyzed; Potassium value may be falsely elevated by as much as 0.3-0.5 mmol/L. Suggest redraw and reanalysis. Chloride 100 97 - 110 mmol/L [facility] CO2 28 22 - 32 mmol/L [facility] Anion gap 10 2 - 15 mmol/L [facility] BUN 27(H) 6 - 25 mg/dL [facility] Creatinine 1.04 0.60 - 1.10 mg/dL [facility] Glucose 216(H) 70 - 199 mg/dL [facility] Comment: Interpretive Data Fasting glucose >/= [...] 2022. Calcium 9.6 8.5 - 10.3 mg/dL [facility] Bilirubin, total 0.2 0.1 - 1.2 mg/dL [facility] Protein, pl 7.2 6.5 - 8.5 g/dL [facility] Albumin 3.4(L) 3.5 - 5.0 g/dL [facility] Alk phos 161(H) 40 - 130 Units/L [facility] ALT 18 7 - 45 Units/L [facility] AST 26 10 - 45 Units/L [facility] Comment:Hemolyzed; result ma y be falsely elevated Blood 07/31/2024 10:1 3 PM CDT 07/31/2024 10:52 PM CDT us Elvira Cooper MD LAB BLOOD ORDERABLES Ayanna vazquez Result [facility] Department [place] [address] * (ABNORMAL) CBC without differential (07/31/2024 10:13 PM CDT) WBC 6.3 3.8 - 9.9 K/cumm Hgb 11.6(L) 11.9 - 15.5 g/dL [facility] Hct 35.7 35.6 - 45.5 % [facility] Plt 266 150 - 400 K/cumm [facility] MPV 9.6 9.1 - 12.3 fL [facility] RBC 3.67(L) 3.90 - 5.20 M/cumm [facility] MCV 97.3(H) 81.3 - 96.4 fL [facility] MCH 31.6 27.1 - 33.3 pg [facility] MCHC 32.5 32.3 - 35.7 g/dL [facility] RDW CV 13.2 11.1 - 14.9 % [facility] RDW SD 47.4 35.7 - 48.1 fL [facility] NRBC abs 0.00 0.00 - 0.01 K/cumm [facility] Blood 07/31/2024 10:1 3 PM CDT 07/31/2024 10:52 PM CDT us Elvira Cooper MD LAB BLOOD ORDERABLES Ayanna l Result Performing Organization Address City/[facility] Co de Phone Number [facility] [place] [address] * POCT glucose (07/31/2024 5:23 PM CDT) Glucose, POC 153 70 - 199 mg/dL Blood 07/31/2024 5:23 PM CDT 07/31/2024 5:23 PM CDT Russ Pride MD LAB POCT ORDERABLES - DEVICE Final Result Performing Organization Address [facility] de Phone Number [facility] [place] [address] * (ABNORMAL) POCT glucose (07/31/2024 11:34 AM CDT) Glucose, POC 316(H) 70 - 199 mg/dL Blood 07/31/2024 11:3 4 AM CDT 07/31/2024 11:34 AM CDT Russ Pride MD LAB POCT ORDERABLES - DEVICE Final Result Performing Organization Address [facility] de Phone Number [facility] [place] [address] * (ABNORMAL) POCT glucose (07/31/2024 8:14 AM CDT) Glucose, POC 211(H) 70 - 199 mg/dL Blood 07/31/2024 8:14 AM CDT 07/31/2024 8:14 AM CDT us Russ Pride MD LAB POCT ORDERABLES - DEVICE Final Result Performing Organization Address [facility] de Phone Number [facility] [place] [address] * CP-CRE culture, surveillance Rectal swab (07/31/2024 5:59 AM CDT) Report Final Report: Negative Rectal swab 07/31/2024 5:59 AM CDT 07/31/2024 6:25 AM CDT Narrative [facility] - 08/01/2024 12:24 PM CDT Interpretive Data The screening agar used for the detection of carbapenemase-producing Enterobacterales (CP-CRE) has not been approved by the Food and Drug Administration. The performance characteristics of this medium have been evaluated and verified by the [facility]. This media demonstrates highest sensitivity for KPC and NDM-1 producing isolates. This screening assay is exclusively intended for infection control and surveillance, not for patient diagnosis or treatment purposes. Current interpretive data was last revised on 2023. us Azeem Urias MD LAB MICROBIOLOGY - GENERAL OR DERABLES Final Result Performing Organization Address [facility] de Phone Number [facility] Department [place] [address] * (ABNORMAL) eGFR (07/31/2024 2:28 AM CDT) [...] ORDERABLES Ayanna l Result Performing Organization Address [facility] Co de Phone Number [facility] Department [place] [address] * Magnesium (07/31/2024 2:28 AM CDT) Magnesium 2.0 1.4 - 2.5 mg/dL Blood 07/31/2024 2:28 AM CDT 07/31/2024 3:35 AM CDT us Ynes Roman MD LAB BLOOD ORDERABLES Ayanna l Result Performing Organization Address City/[facility] Co de Phone Number [facility] Department [place] [address] * (ABNORMAL) Comprehensive metabolic panel (07/31/2024 2:28 AM CDT) Sodium 139 135 - 145 mmol/L Potassium, pl 4.6 3.3 - 4.9 mmol/L [facility] Chloride 100 97 - 110 mmol/L [facility] CO2 28 22 - 32 mmol/L [facility] Anion gap 11 2 - 15 mmol/L [facility] BUN 22 6 - 25 mg/dL [facility] Creatinine 1.09 0.60 - 1.10 mg/dL [facility] Glucose 227(H) 70 - 199 mg/dL [facility] Comment: Interpretive Data Fasting glucose >/= [...] 2022. Calcium 9.4 8.5 - 10.3 mg/dL [facility] Bilirubin, total 0.2 0.1 - 1.2 mg/dL [facility] Protein, pl 6.8 6.5 - 8.5 g/dL [facility] Albumin 3.3(L) 3.5 - 5.0 g/dL [facility] Alk phos 141(H) 40 - 130 Units/L [facility] ALT 8 7 - 45 Units/L [facility] AST 29 10 - 45 Units/L [facility] Blood 07/31/2024 2:28 AM CDT 07/31/2024 3:35 AM CDT us Elvira Cooper MD LAB BLOOD ORDERABLES Ayanna vazquez Result [facility] [place] [address] * (ABNORMAL) CBC without differential (07/31/2024 2:28 AM CDT) Pathologist [facility] WBC 6.0 3.8 - 9.9 K/cumm Hgb 11.3(L) 11.9 - 15.5 g/dL [facility] Hct 34.4(L) 35.6 - 45.5 % [facility] Plt 240 150 - 400 K/cumm [facility] MPV 9.3 9.1 - 12.3 fL [facility] RBC 3.53(L) 3.90 - 5.20 M/cumm [facility] MCV 97.5(H) 81.3 - 96.4 fL [facility] MCH 32.0 27.1 - 33.3 pg [facility] MCHC 32.8 32.3 - 35.7 g/dL [facility] RDW CV 13.1 11.1 - 14.9 % [facility] RDW SD 46.6 35.7 - 48.1 fL [facility] NRBC abs 0.00 0.00 - 0.01 K/cumm [facility] Blood 07/31/2024 2:28 AM CDT 07/31/2024 3:35 AM CDT us Elvira Cooper MD LAB BLOOD ORDERABLES Ayanna l Result [facility] Department [place] [address] * POCT glucose (07/30/2024 11:43 PM CDT) Glucose, POC 195 70 - 199 mg/dL Blood 07/30/2024 11:4 3 PM CDT 07/30/2024 11:43 PM CDT us Russ Pride MD LAB POCT ORDERABLES - DEVICE Final Result [facility] [place] [address] * POCT glucose (07/30/2024 7:51 PM CDT) Glucose, POC 78 70 - 199 mg/dL Blood 07/30/2024 7:51 PM CDT 07/30/2024 7:51 PM CDT us Russ Pride MD LAB POCT ORDERABLES - DEVICE Final Result Performing Organization Address [facility] de Phone Number [facility] [place] [address] * (ABNORMAL) POCT glucose (07/30/2024 5:06 PM CDT) Glucose, POC 248(H) 70 - 199 mg/dL Blood 07/30/2024 5:06 PM CDT 07/30/2024 5:06 PM CDT Russ Pride MD LAB POCT ORDERABLES - DEVICE Final Result Performing Organization Address [facility] de Phone Number [facility] [place] [address] * (ABNORMAL) POCT glucose (07/30/2024 11:25 AM CDT) Glucose, POC 210(H) 70 - 199 mg/dL Blood 07/30/2024 11:2 5 AM CDT 07/30/2024 11:25 AM CDT Russ Pride MD LAB POCT ORDERABLES - DEVICE Final Result Performing Organization Address [facility] de Phone Number [facility] [place] [address] * POCT glucose (07/30/2024 8:25 AM CDT) Glucose, POC 154 70 - 199 mg/dL Blood 07/30/2024 8:25 AM CDT 07/30/2024 8:25 AM CDT Russ Pride MD LAB POCT ORDERABLES - DEVICE Final Result [facility] Department [place] [address] * Differential, auto (07/29/2024 10:10 PM CDT) Neutrophil abs 4.2 1.5 - 6.5 K/cumm Imm gran abs 0.0 0.0 - 0.1 K/cumm [facility] Lymphocyte abs 1.5 0.8 - 3.3 K/cumm [facility] Monocyte abs 0.4 0.2 - 0.8 K/cumm [facility] Eosinophil abs 0.2 0.0 - 0.5 K/cumm [facility] Basophil abs 0.1 0.0 - 0.1 K/cumm [facility] Neutrophil pct 65.4 % [facility] Comment: Interpretive Data Percent cell count reference ranges are not reported, since discordance with absolute values may lead to misinterpretation of CBC data. Current Interpretive Data was last revised on 2018. Imm gran pct 0.3 % [facility] Comment: Interpretive Data Percent cell count reference ranges are not reported, since discordance with absolute values may lead to misinterpretation of CBC data. Current Interpretive Data was last revised on 2018. Lymphocyte pct 23.8 % [facility] Comment: Interpretive Data Percent cell count reference ranges are not reported, since discordance with absolute values may lead to misinterpretation of CBC data. Current Interpretive Data was last revised on 2018. Monocyte pct 6.1 % [facility] Comment: Interpretive Data Percent cell count reference ranges are not reported, since discordance with absolute values may lead to misinterpretation of CBC data. Current Interpretive Data was last revised on 2018. Eosinophil pct 3.0 % [facility] Comment: Interpretive Data Percent cell count reference ranges are not reported, since discordance with absolute values may lead to misinterpretation of CBC data. Current Interpretive Data was last revised on 2018. Basophil pct 1.4 % [facility] Comment: Interpretive Data Percent cell count reference ranges are not reported, since discordance with absolute values may lead to misinterpretation of CBC data. Current Interpretive Data was last revised on 2018. Blood 07/29/2024 10:1 0 PM CDT 07/29/2024 11:00 PM CDT us Russ Pride MD LAB BLOOD ORDERABLES Final Re sult [facility] Department [place] [address] * eGFR (07/29/2024 10:10 PM CDT) eGFR [...] MD LAB BLOOD ORDERABLES Ayanna l Result [facility] Department [place] [address] * Magnesium (07/29/2024 10:10 PM CDT) [facility] Magnesium 1.8 1.4 - 2.5 mg/dL Blood 07/29/2024 10:1 0 PM CDT 07/29/2024 10:49 PM CDT Ynes Roman MD LAB BLOOD ORDERABLES Ayanna l Result Performing Organization Address [facility] Co de Phone Number [facility] Department [place] [address] * (ABNORMAL) Comprehensive metabolic panel (07/29/2024 10:10 PM CDT) [facility] Sodium 137 135 - 145 mmol/L Potassium, pl 4.5 3.3 - 4.9 mmol/L [facility] Chloride 100 97 - 110 mmol/L [facility] CO2 27 22 - 32 mmol/L [facility] Anion gap 10 2 - 15 mmol/L [facility] BUN 19 6 - 25 mg/dL [facility] Creatinine 1.01 0.60 - 1.10 mg/dL [facility] Glucose 273(H) 70 - 199 mg/dL [facility] Comment: Interpretive Data Fasting glucose >/= [...] 2022. Calcium 9.4 8.5 - 10.3 mg/dL [facility] Bilirubin, total 0.2 0.1 - 1.2 mg/dL [facility] Protein, pl 7.5 6.5 - 8.5 g/dL [facility] Albumin 3.8 3.5 - 5.0 g/dL [facility] Alk phos 157(H) 40 - 130 Units/L [facility] ALT 7 7 - 45 Units/L [facility] AST 25 10 - 45 Units/L [facility] Blood 07/29/2024 10:1 0 PM CDT 07/29/2024 10:49 PM CDT us Elvira Cooper MD LAB BLOOD ORDERABLES Ayanna vazquez Result [facility] Department [place] [address] * (ABNORMAL) CBC without differential (07/29/2024 10:10 PM CDT) Pathologist [facility] WBC 6.3 3.8 - 9.9 K/cumm Hgb 12.4 11.9 - 15.5 g/dL [facility] Hct 36.6 35.6 - 45.5 % [facility] Plt 301 150 - 400 K/cumm [facility] MPV 9.5 9.1 - 12.3 fL [facility] RBC 3.78(L) 3.90 - 5.20 M/cumm [facility] MCV 96.8(H) 81.3 - 96.4 fL [facility] MCH 32.8 27.1 - 33.3 pg [facility] MCHC 33.9 32.3 - 35.7 g/dL [facility] RDW CV 13.1 11.1 - 14.9 % [facility] RDW SD 46.3 35.7 - 48.1 fL [facility] NRBC abs 0.00 0.00 - 0.01 K/cumm [facility] Blood 07/29/2024 10:1 0 PM CDT 07/29/2024 10:48 PM CDT us Elvira Sweta Larossa MD LAB BLOOD ORDERABLES Ayanna l Result Performing Organization Address [facility] Co de Phone Number [facility] [place] [address] * (ABNORMAL) POCT glucose (07/29/2024 9:30 PM CDT) Glucose, POC 262(H) 70 - 199 mg/dL Blood 07/29/2024 9:30 PM CDT 07/29/2024 9:30 PM CDT us Russ Pride MD LAB POCT ORDERABLES - DEVICE Final Result Performing Organization Address [facility] de Phone Number [facility] [place] [address] * POCT glucose (07/29/2024 5:11 PM CDT) Glucose, POC 153 70 - 199 mg/dL Blood 07/29/2024 5:11 PM CDT 07/29/2024 5:11 PM CDT Russ Pride MD LAB POCT ORDERABLES - DEVICE Final Result Performing Organization Address [facility] de Phone Number [facility] [place] [address] * (ABNORMAL) POCT glucose (07/29/2024 11:30 AM CDT) Glucose, POC 268(H) 70 - 199 mg/dL Comment:Glu2: RN/MD Notified Glucose comment 1 Glu2: RN/MD Notified [facility] Blood 07/29/2024 11:3 0 AM CDT 07/29/2024 11:30 AM CDT Russ Pride MD LAB POCT ORDERABLES - DEVICE Final Result Performing Organization Address [facility] Co de Phone Number [facility] [place] [address] * (ABNORMAL) POCT glucose (07/29/2024 8:37 AM CDT) [facility] Glucose, POC 280(H) 70 - 199 mg/dL Comment:Glu2: RN/MD Notified Glucose comment 1 Glu2: RN/MD Notified [facility] Blood 07/29/2024 8:37 AM CDT 07/29/2024 8:37 AM CDT us Russ Pride MD LAB POCT ORDERABLES - DEVICE Final Result Performing Organization Address [facility] Co de Phone Number [facility] [place] [address] * (ABNORMAL) POCT glucose (07/29/2024 3:08 AM CDT) [facility] Glucose, POC 285(H) 70 - 199 mg/dL Blood 07/29/2024 3:08 AM CDT 07/29/2024 3:08 AM CDT us Russ Pride MD LAB POCT ORDERABLES - DEVICE Final Result Performing Organization Address [facility] de Phone Number [facility] [place] [address] * eGFR (07/29/2024 3:02 AM CDT) eGFR [...] ORDERABLES Ayanna l Result Performing Organization Address City/[facility]/ZIP Co de Phone Number [facility] Department of [employer] [place] [id number] * Magnesium (07/29/2024 3:02 AM CDT) Magnesium 1.8 1.4 - 2.5 mg/dL Blood 07/29/2024 3:02 AM CDT 07/29/2024 3:33 AM CDT us Ynes Roman MD LAB BLOOD ORDERABLES Ayanna l Result [facility] [place] [address] * (ABNORMAL) Comprehensive metabolic panel (07/29/2024 3:02 AM CDT) Sodium 136 135 - 145 mmol/L Potassium, pl 4.4 3.3 - 4.9 mmol/L [facility] Chloride 99 97 - 110 mmol/L [facility] CO2 27 22 - 32 mmol/L [facility] Anion gap 10 2 - 15 mmol/L [facility] BUN 26(H) 6 - 25 mg/dL [facility] Creatinine 0.80 0.60 - 1.10 mg/dL [facility] Glucose 254(H) 70 - 199 mg/dL [facility] Comment: Interpretive Data Fasting glucose >/= [...] 2022. Calcium 9.7 8.5 - 10.3 mg/dL [facility] Bilirubin, total 0.2 0.1 - 1.2 mg/dL [facility] Protein, pl 7.1 6.5 - 8.5 g/dL [facility] Albumin 3.3(L) 3.5 - 5.0 g/dL [facility] Alk phos 161(H) 40 - 130 Units/L [facility] ALT 11 7 - 45 Units/L [facility] AST 24 10 - 45 Units/L [facility] Blood 07/29/2024 3:02 AM CDT 07/29/2024 3:33 AM CDT us Elvira Cooper MD LAB BLOOD ORDERABLES Ayanna vazquez Result [facility] [place] [address] * (ABNORMAL) CBC without differential (07/29/2024 3:02 AM CDT) WBC 7.0 3.8 - 9.9 K/cumm Hgb 11.5(L) 11.9 - 15.5 g/dL [facility] Hct 35.6 35.6 - 45.5 % [facility] Plt 282 150 - 400 K/cumm [facility] MPV 9.6 9.1 - 12.3 fL [facility] RBC 3.63(L) 3.90 - 5.20 M/cumm [facility] MCV 98.1(H) 81.3 - 96.4 fL [facility] MCH 31.7 27.1 - 33.3 pg [facility] MCHC 32.3 32.3 - 35.7 g/dL [facility] RDW CV 13.0 11.1 - 14.9 % [facility] RDW SD 46.3 35.7 - 48.1 fL [facility] NRBC abs 0.00 0.00 - 0.01 K/cumm [facility] Blood 07/29/2024 3:02 AM CDT 07/29/2024 3:34 AM CDT Elvira Cooper MD LAB BLOOD ORDERABLES Ayanna l Result Performing Organization Address City/[facility]/ZIP Co de Phone Number [facility] [place] [address] * (ABNORMAL) POCT glucose (07/28/2024 9:05 PM CDT) Glucose, POC 304(H) 70 - 199 mg/dL Blood 07/28/2024 9:05 PM CDT 07/28/2024 9:05 PM CDT Russ Pride MD LAB POCT ORDERABLES - DEVICE Final Result [facility] [place] [address] * (ABNORMAL) POCT glucose (07/28/2024 6:00 PM CDT) Glucose, POC 236(H) 70 - 199 mg/dL Blood 07/28/2024 6:00 PM CDT 07/28/2024 6:00 PM CDT Russ Pride MD LAB POCT ORDERABLES - DEVICE Final Result Performing Organization Address [facility] de Phone Number [facility] [place] [address] * POCT glucose (07/28/2024 12:20 PM CDT) Glucose, POC 193 70 - 199 mg/dL Blood 07/28/2024 12:2 0 PM CDT 07/28/2024 12:20 PM CDT Russ Pride MD LAB POCT ORDERABLES - DEVICE Final Result Performing Organization Address [facility] de Phone Number [facility] [place] [address] * POCT glucose (07/28/2024 8:30 AM CDT) Glucose, POC 197 70 - 199 mg/dL Blood 07/28/2024 8:30 AM CDT 07/28/2024 8:30 AM CDT Russ Pride MD LAB POCT ORDERABLES - DEVICE Final Result Performing Organization Address [facility] de Phone Number [facility] [place] [address] * eGFR (07/28/2024 5:08 AM CDT) eGFR [...] ORDERABLES Ayanna l Result Performing Organization Address [facility] Co de Phone Number [facility] Department [place] [address] * Magnesium (07/28/2024 5:08 AM CDT) Pathologist [facility] Magnesium 1.9 1.4 - 2.5 mg/dL Blood 07/28/2024 5:08 AM CDT 07/28/2024 5:56 AM CDT us Ynes Roman MD LAB BLOOD ORDERABLES Ayanna l Result Performing Organization Address [facility] Co de Phone Number [facility] Department [place] [address] * (ABNORMAL) Comprehensive metabolic panel (07/28/2024 5:08 AM CDT) Pathologist [facility] Sodium 138 135 - 145 mmol/L Potassium, pl 4.8 3.3 - 4.9 mmol/L [facility] Comment:Hemolyzed; Potassium value may be falsely elevated by as much as 0.3-0.5 mmol/L. Suggest redraw and reanalysis. Chloride 101 97 - 110 mmol/L [facility] CO2 29 22 - 32 mmol/L [facility] Anion gap 8 2 - 15 mmol/L [facility] BUN 23 6 - 25 mg/dL [facility] Creatinine 0.85 0.60 - 1.10 mg/dL [facility] Glucose 173 70 - 199 mg/dL [facility] Comment: Interpretive Data Fasting glucose >/= [...] 2022. Calcium 9.3 8.5 - 10.3 mg/dL [facility] Bilirubin, total 0.3 0.1 - 1.2 mg/dL [facility] Protein, pl 7.1 6.5 - 8.5 g/dL [facility] Albumin 3.2(L) 3.5 - 5.0 g/dL [facility] Alk phos 137(H) 40 - 130 Units/L [facility] ALT 7 7 - 45 Units/L [facility] AST 26 10 - 45 Units/L [facility] Comment:Hemolyzed; result ma y be falsely elevated Blood 07/28/2024 5:08 AM CDT 07/28/2024 5:56 AM CDT us Elvira Cooper MD LAB BLOOD ORDERABLES Ayanna vazquez Result [facility] Department [place] [address] * (ABNORMAL) CBC without differential (07/28/2024 5:08 AM CDT) Pathologist [facility] WBC 6.3 3.8 - 9.9 K/cumm Hgb 11.5(L) 11.9 - 15.5 g/dL [facility] Hct 34.7(L) 35.6 - 45.5 % [facility] Plt 264 150 - 400 K/cumm [facility] MPV 9.6 9.1 - 12.3 fL [facility] RBC 3.51(L) 3.90 - 5.20 M/cumm [facility] MCV 98.9(H) 81.3 - 96.4 fL [facility] MCH 32.8 27.1 - 33.3 pg [facility] MCHC 33.1 32.3 - 35.7 g/dL [facility] RDW CV 13.0 11.1 - 14.9 % [facility] RDW SD 46.8 35.7 - 48.1 fL [facility] NRBC abs 0.00 0.00 - 0.01 K/cumm [facility] Blood 07/28/2024 5:08 AM CDT 07/28/2024 5:55 AM CDT us Elvira Cooper MD LAB BLOOD ORDERABLES Ayanna l Result [facility] Department [place] [address] * POCT glucose (07/27/2024 8:55 PM CDT) Pathologist [facility] Glucose, POC 139 70 - 199 mg/dL Blood 07/27/2024 8:55 PM CDT 07/27/2024 8:55 PM CDT us Russ Pride MD LAB POCT ORDERABLES - DEVICE Final Result [facility] [place] [address] * POCT glucose (07/27/2024 5:11 PM CDT) Glucose, POC 147 70 - 199 mg/dL Blood 07/27/2024 5:11 PM CDT 07/27/2024 5:11 PM CDT Russ Pride MD LAB POCT ORDERABLES - DEVICE Final Result Performing Organization Address City/[facility] [place] [address] * POCT glucose (07/27/2024 3:57 PM CDT) Glucose, POC 186 70 - 199 mg/dL Blood 07/27/2024 3:57 PM CDT 07/27/2024 3:57 PM CDT Russ Pride MD LAB POCT ORDERABLES - DEVICE Final Result Performing Organization Address [facility] [place] [address] * POCT glucose (07/27/2024 2:45 PM CDT) Glucose, POC 175 70 - 199 mg/dL Blood 07/27/2024 2:45 PM CDT 07/27/2024 2:45 PM CDT Russ Pride MD LAB POCT ORDERABLES - DEVICE Final Result Performing Organization Address City/[facility]/[place] [address] * TRANSESOPHAGEAL ECHO (GT) W DOPPLER/CF WO CONTRAST (07/27/2024 2:24 PM CDT) Anatomical Region Laterality Modality Echocardiography 07/27/2024 11:1 5 AM CDT Narrative 07/27/2024 4:25 PM CDT Patient name: Lei Rodriguez Date of test: 07/27/2024 Date of : 1960 (F) Hospital #: 0 ?Location: [facility] Cardiac Diagnostic Lab Interpreted by: Hernan Phelps MD Pick Out Hand: Russel Workman MD RN: Reason for Test: [...] 3=Akinetic 4=Dyskin. 5=Aneurysm 0=Not visualized) Short [place] Johns-Gastric:=2 S=2 I=2 P=2 L=2 A=2 Long [place]-Gastric:BP=2 BA=2 MP=2 MA=2 AP=2 AA=2 Chamber Dimensions: [...] seen, Mild-moderate MR, severe TV regurgitation, Mild DC. ? GT Summary ? Russel Workman performed [...] - 16:25:20 by Hernan Phelps MD ?? Car Shunter: Russel Workman By signing this report, the attending coning machine operator certifies that he or she has personally supervised and interpreted the echocardiogram and has reviewed and or edited and agrees with the written comments contained within the report. Procedure Note Hernan Phelps MD - 07/27/2024 Patient name: Lei Rodriguez Date of test: 07/27/2024 Date of : 1960 () [facility] #: 0 Location: [facility] Cardiac Diagnostic Lab Interpreted by: Hernan Phelps MD Pick Out Hand: Russel Workman MD RN: Reason for Test: [...] 3=Akinetic 4=Dyskin. 5=Aneurysm 0=Not visualized) Short [place] Johns-Gastric:=2 S=2 I=2 P=2 L=2 A=2 Long [place] Johns-Gastric:BP=2 BA=2 MP=2 MA=2 AP=2 AA=2 Chamber Dimensions: [...] seen, Mild-moderate MR, severe TV regurgitation, Mild DC. GT Summary Russel Workman performed the GT [...] 07/27/2024 - 16:25:20 by Hernan Phelps MD Car Shunter: Russel FaulknerJacinta By signing this report, the attending coning machine operator certifies that he or she has personally [...] - DEVICE Final Result Performing Organization Address [facility] Co de Phone Number [facility] Department [place] [address] * (ABNORMAL) POCT glucose (07/27/2024 8:06 AM CDT) Glucose, POC 216(H) 70 - 199 mg/dL Blood 07/27/2024 8:06 AM CDT 07/27/2024 8:06 AM CDT Russ Pride MD LAB POCT ORDERABLES - DEVICE Final Result Performing Organization Address [facility]/State/ZIP Co de Phone Number [facility] [place] [address] * (ABNORMAL) POCT glucose (07/26/2024 9:02 PM CDT) Glucose, POC 259(H) 70 - 199 mg/dL Blood 07/26/2024 9:02 PM CDT 07/26/2024 9:02 PM CDT Russ Pride MD LAB POCT ORDERABLES - DEVICE Final Result Performing Organization Address [facility] [place] [address] * (ABNORMAL) POCT glucose (07/26/2024 4:31 PM CDT) Glucose, POC 332(H) 70 - 199 mg/dL Blood 07/26/2024 4:31 PM CDT 07/26/2024 4:31 PM CDT Russ Pride MD LAB POCT ORDERABLES - DEVICE Final Result Performing Organization Address [facility] Co de Phone Number [facility] [place] [address] * (ABNORMAL) POCT glucose (07/26/2024 4:22 PM CDT) Glucose, POC 344(H) 70 - 199 mg/dL Blood 07/26/2024 4:22 PM CDT 07/26/2024 4:22 PM CDT Russ Pride MD LAB POCT ORDERABLES - DEVICE Final Result [facility] [place] [address] * POCT glucose (07/26/2024 11:49 AM CDT) Glucose, POC 124 70 - 199 mg/dL Blood 07/26/2024 11:4 9 AM CDT 07/26/2024 11:49 AM CDT Russ Pride MD LAB POCT ORDERABLES - DEVICE Final Result Performing Organization Address [facility] de Phone Number [facility] Department [place] [address] * POCT glucose (07/26/2024 8:16 AM CDT) Glucose, POC 146 70 - 199 mg/dL Blood 07/26/2024 8:16 AM CDT 07/26/2024 8:16 AM CDT Russ Pride MD LAB POCT ORDERABLES - DEVICE Final Result Performing Organization Address [facility] de Phone Number [facility] [place] [address] * eGFR (07/25/2024 8:04 PM CDT) Pathologist [facility] eGFR >90 >=60 mL/min/1. 73 m2 Comment: [...] ORDERABLES Ayanna l Result Performing Organization Address City/[facility]/ZIP Co de Phone Number [facility] Department [place] [address] * Magnesium (07/25/2024 8:04 PM CDT) Pathologist [facility] Magnesium 1.9 1.4 - 2.5 mg/dL Blood 07/25/2024 8:04 PM CDT 07/25/2024 8:54 PM CDT us Ynes Roman MD LAB BLOOD ORDERABLES Ayanna l Result Performing Organization Address City/[facility]/ZIP Co de Phone Number [facility] Department [place] [address] * (ABNORMAL) Comprehensive metabolic panel (07/25/2024 8:04 PM CDT) Sodium 139 135 - 145 mmol/L Potassium, pl 3.8 3.3 - 4.9 mmol/L [facility] Chloride 99 97 - 110 mmol/L [facility] CO2 37(H) 22 - 32 mmol/L [facility] Anion gap 3 2 - 15 mmol/L [facility] BUN 14 6 - 25 mg/dL [facility] Creatinine 0.71 0.60 - 1.10 mg/dL [facility] Glucose 125 70 - 199 mg/dL [facility] Comment: Interpretive Data Fasting glucose >/= [...] 2022. Calcium 9.7 8.5 - 10.3 mg/dL [facility] Bilirubin, total 0.3 0.1 - 1.2 mg/dL [facility] Protein, pl 7.7 6.5 - 8.5 g/dL [facility] Albumin 3.4(L) 3.5 - 5.0 g/dL [facility] Alk phos 138(H) 40 - 130 Units/L [facility] ALT 13 7 - 45 Units/L [facility] AST 32 10 - 45 Units/L [facility] Blood 07/25/2024 8:04 PM CDT 07/25/2024 8:54 PM CDT Elvira Cooper MD LAB BLOOD ORDERABLES Ayanna vazquez Result [facility] Department [place] [address] * (ABNORMAL) CBC without differential (07/25/2024 8:04 PM CDT) [facility] WBC 10.5(H) 3.8 - 9.9 K/cumm Hgb 12.7 11.9 - 15.5 g/dL [facility] Hct 38.0 35.6 - 45.5 % [facility] Plt 332 150 - 400 K/cumm [facility] MPV 9.4 9.1 - 12.3 fL [facility] RBC 3.92 3.90 - 5.20 M/cumm [facility] MCV 96.9(H) 81.3 - 96.4 fL [facility] MCH 32.4 27.1 - 33.3 pg [facility] MCHC 33.4 32.3 - 35.7 g/dL [facility] RDW CV 12.7 11.1 - 14.9 % [facility] RDW SD 44.7 35.7 - 48.1 fL [facility] NRBC abs 0.00 0.00 - 0.01 K/cumm [facility] Blood 07/25/2024 8:04 PM CDT 07/25/2024 8:53 PM CDT Elvira Cooper MD LAB BLOOD ORDERABLES Ayanna l Result Performing Organization Address City/[facility]/ZIP Co de Phone Number [facility] [place] [address] * POCT glucose (07/25/2024 8:00 PM CDT) Glucose, POC 124 70 - 199 mg/dL Blood 07/25/2024 8:00 PM CDT 07/25/2024 8:00 PM CDT Russ Pride MD LAB POCT ORDERABLES - DEVICE Final Result Performing Organization Address [facility] Co de Phone Number [facility] [place] [address] * (ABNORMAL) POCT glucose (07/25/2024 5:16 PM CDT) Glucose, POC 244(H) 70 - 199 mg/dL Blood 07/25/2024 5:16 PM CDT 07/25/2024 5:16 PM CDT Russ Pride MD LAB POCT ORDERABLES - DEVICE Final Result Performing Organization Address City/[facility]/ZIP Co de Phone Number [facility] [place] [address] * IR Follow Up Inpatient (07/25/2024 3:47 [...] - DEVICE Final Result Performing Organization Address [facility] Co de Phone Number [facility] Department [place] [address] * POCT glucose (07/25/2024 11:57 AM CDT) Glucose, POC 89 70 - 199 mg/dL Blood 07/25/2024 11:5 7 AM CDT 07/25/2024 11:57 AM CDT Russ Pride MD LAB POCT ORDERABLES - DEVICE Final Result Performing Organization Address City/[facility] Co de Phone Number [facility] [place] [address] * (ABNORMAL) POCT glucose (07/25/2024 8:25 AM CDT) Glucose, POC 215(H) 70 - 199 mg/dL Blood 07/25/2024 8:25 AM CDT 07/25/2024 8:25 AM CDT Russ Pride MD LAB POCT ORDERABLES - DEVICE Final Result Performing Organization Address [facility] Co de Phone Number [facility] Department [place] [address] * eGFR (07/24/2024 10:31 PM CDT) eGFR [...] ORDERABLES Ayanna l Result Performing Organization Address City/[facility]/ZIP Co de Phone Number [facility] Department of [employer] [place], [place] [id number] * (ABNORMAL) Protime-INR (07/24/2024 10:31 PM CDT) Pathologist [facility] PT 13.2(H) 9.7 - 13.0 sec INR 1.22(H) 0.90 - 1.20 [facility] Comment: Interpretive data Oral anticoagulant therapeutic [...] ORDERABLES Final Re sult Performing Organization Address [facility] Co de Phone Number [facility] Department [place] [address] * Magnesium (07/24/2024 10:31 PM CDT) [facility] Magnesium 2.0 1.4 - 2.5 mg/dL Blood 07/24/2024 10:3 1 PM CDT 07/24/2024 10:50 PM CDT Ynes Roman MD LAB BLOOD ORDERABLES Ayanna l Result Performing Organization Address [facility] Co de Phone Number [facility] Department [place] [address] * (ABNORMAL) Comprehensive metabolic panel (07/24/2024 10:31 PM CDT) [facility] Sodium 135 135 - 145 mmol/L Potassium, pl 4.3 3.3 - 4.9 mmol/L [facility] Chloride 98 97 - 110 mmol/L [facility] CO2 27 22 - 32 mmol/L [facility] Anion gap 10 2 - 15 mmol/L [facility] BUN 22 6 - 25 mg/dL [facility] Creatinine 0.84 0.60 - 1.10 mg/dL [facility] Glucose 297(H) 70 - 199 mg/dL [facility] Comment: Interpretive Data Fasting glucose >/= [...] 2022. Calcium 9.6 8.5 - 10.3 mg/dL [facility] Bilirubin, total 0.2 0.1 - 1.2 mg/dL [facility] Protein, pl 7.8 6.5 - 8.5 g/dL [facility] Albumin 3.6 3.5 - 5.0 g/dL [facility] Alk phos 175(H) 40 - 130 Units/L [facility] ALT 9 7 - 45 Units/L [facility] AST 27 10 - 45 Units/L [facility] Blood 07/24/2024 10:3 1 PM CDT 07/24/2024 10:50 PM CDT us Elvira Cooper MD LAB BLOOD ORDERABLES Ayanna vazquez Result [facility] Department [place] [address] * (ABNORMAL) CBC without differential (07/24/2024 10:31 PM CDT) [facility] WBC 6.7 3.8 - 9.9 K/cumm Hgb 12.1 11.9 - 15.5 g/dL [facility] Hct 36.5 35.6 - 45.5 % [facility] Plt 333 150 - 400 K/cumm [facility] MPV 9.3 9.1 - 12.3 fL [facility] RBC 3.79(L) 3.90 - 5.20 M/cumm [facility] MCV 96.3 81.3 - 96.4 fL [facility] MCH 31.9 27.1 - 33.3 pg [facility] MCHC 33.2 32.3 - 35.7 g/dL [facility] RDW CV 13.0 11.1 - 14.9 % [facility] RDW SD 46.4 35.7 - 48.1 fL [facility] NRBC abs 0.00 0.00 - 0.01 K/cumm [facility] Blood 07/24/2024 10:3 1 PM CDT 07/24/2024 10:50 PM CDT us Elvira Cooper MD LAB BLOOD ORDERABLES Ayanna l Result Performing Organization Address [facility] Co de Phone Number [facility] Department [place] [address] * (ABNORMAL) POCT glucose (07/24/2024 11:15 AM CDT) Glucose, POC 329(H) 70 - 199 mg/dL Comment:Glu2: RN/MD Notified Glucose comment 1 Glu2: RN/MD Notified [facility] Blood 07/24/2024 11:1 5 AM CDT 07/24/2024 11:15 AM CDT us Russ Pride MD LAB POCT ORDERABLES - DEVICE Final Result Performing Organization Address City/[facility]/ZIP Co de Phone Number [facility] [place] [address] * (ABNORMAL) POCT glucose (07/24/2024 8:54 AM CDT) Glucose, POC 206(H) 70 - 199 mg/dL Blood 07/24/2024 8:54 AM CDT 07/24/2024 8:54 AM CDT us Russ Pride MD LAB POCT ORDERABLES - DEVICE Final Result Performing Organization Address [facility] Co de Phone Number [facility] [place] [address] * (ABNORMAL) POCT glucose (07/24/2024 8:30 AM CDT) Glucose, POC 220(H) 70 - 199 mg/dL Blood 07/24/2024 8:30 AM CDT 07/24/2024 8:30 AM CDT us Russ Pride MD LAB POCT ORDERABLES - DEVICE Final Result Performing Organization Address [facility] de Phone Number [facility] Department [place] [address] * eGFR (07/23/2024 8:40 PM CDT) Pathologist [facility] eGFR 60 >=60 mL/min/1. 73 m2 Comment: [...] ORDERABLES Ayanna l Result Performing Organization Address City/[facility]/ZIP Co de Phone Number [facility] Department [place] [address] * Magnesium (07/23/2024 8:40 PM CDT) Pathologist [facility] Magnesium 1.9 1.4 - 2.5 mg/dL Blood 07/23/2024 8:40 PM CDT 07/23/2024 9:17 PM CDT Ynes Roman MD LAB BLOOD ORDERABLES Ayanna l Result Performing Organization Address [facility] de Phone Number [facility] Department [place] [address] * (ABNORMAL) Comprehensive metabolic panel (07/23/2024 8:40 PM CDT) Sodium 136 135 - 145 mmol/L Potassium, pl 4.2 3.3 - 4.9 mmol/L [facility] Chloride 98 97 - 110 mmol/L [facility] CO2 27 22 - 32 mmol/L [facility] Anion gap 11 2 - 15 mmol/L [facility] BUN 25 6 - 25 mg/dL [facility] Creatinine 1.05 0.60 - 1.10 mg/dL [facility] Glucose 218(H) 70 - 199 mg/dL [facility] Comment: Interpretive Data Fasting glucose >/= [...] 2022. Calcium 9.0 8.5 - 10.3 mg/dL [facility] Bilirubin, total 0.2 0.1 - 1.2 mg/dL [facility] Protein, pl 7.4 6.5 - 8.5 g/dL [facility] Albumin 3.3(L) 3.5 - 5.0 g/dL [facility] Alk phos 151(H) 40 - 130 Units/L [facility] ALT 12 7 - 45 Units/L [facility] AST 33 10 - 45 Units/L [facility] Blood 07/23/2024 8:40 PM CDT 07/23/2024 9:17 PM CDT us Elvira Cooper MD LAB BLOOD ORDERABLES Ayanna vazquez Result [facility] Department [place] [address] * (ABNORMAL) CBC without differential (07/23/2024 8:40 PM CDT) WBC 5.4 3.8 - 9.9 K/cumm Hgb 11.6(L) 11.9 - 15.5 g/dL [facility] Hct 36.1 35.6 - 45.5 % [facility] Plt 319 150 - 400 K/cumm [facility] MPV 9.5 9.1 - 12.3 fL [facility] RBC 3.63(L) 3.90 - 5.20 M/cumm [facility] MCV 99.4(H) 81.3 - 96.4 fL [facility] MCH 32.0 27.1 - 33.3 pg [facility] MCHC 32.1(L) 32.3 - 35.7 g/dL [facility] RDW CV 13.2 11.1 - 14.9 % [facility] [facility] RDW SD 48.3(H) 35.7 - 48.1 fL [facility] NRBC abs 0.00 0.00 - 0.01 K/cumm [facility] Blood 07/23/2024 8:40 PM CDT 07/23/2024 9:18 PM CDT us Elvira Cooper MD LAB BLOOD ORDERABLES Ayanna l Result Performing Organization Address City/[facility] Co de Phone Number [facility] [place] [address] * (ABNORMAL) POCT glucose (07/23/2024 8:24 PM CDT) Glucose, POC 248(H) 70 - 199 mg/dL Blood 07/23/2024 8:24 PM CDT 07/23/2024 8:24 PM CDT us Russ Pride MD LAB POCT ORDERABLES - DEVICE Final Result Performing Organization Address [facility] Co de Phone Number [facility] [place] [address] * (ABNORMAL) POCT glucose (07/23/2024 5:45 PM CDT) Glucose, POC 251(H) 70 - 199 mg/dL Blood 07/23/2024 5:45 PM CDT 07/23/2024 5:45 PM CDT Russ Pride MD LAB POCT ORDERABLES - DEVICE Final Result Performing Organization Address City/[facility] Co de Phone Number [facility] [place] [address] * (ABNORMAL) POCT glucose (07/23/2024 12:18 PM CDT) Glucose, POC 286(H) 70 - 199 mg/dL Blood 07/23/2024 12:1 8 PM CDT 07/23/2024 12:18 PM CDT us Russ Pride MD LAB POCT ORDERABLES - DEVICE Final Result [facility] Department [place] [address] * PET/CT FDG Skull to Thigh (07/23/2024 [...] FDG-PET/CT IMAGING DATE OF STUDY: ??07/23/2024 SCANNER: [facility] N PET Vision (NV1). ??This is a [...] obtained. ??The study was interpreted on the [employer] workstation. ??The mean liver SUV (reported for quality lab technician purposes) is 3.0. ??For evaluation of sarcoidosis, [...] FDG-PET/CT IMAGING DATE OF STUDY: 07/23/2024 SCANNER: [facility] [employer] (NV1). This is a high-resolution scanner, which [...] obtained. The study was interpreted on the [employer] workstation. The mean liver SUV (reported for quality lab technician purposes) is 3.0. For evaluation of sarcoidosis, [...] - DEVICE Final Result Performing Organization Address [facility] Co de Phone Number [facility] [place] [address] * POCT glucose (07/22/2024 3:46 PM CDT) Glucose, POC 76 70 - 199 mg/dL Blood 07/22/2024 3:46 PM CDT 07/22/2024 3:46 PM CDT Russ Pride MD LAB POCT ORDERABLES - DEVICE Final Result Performing Organization Address [facility] Co de Phone Number [facility] [place] [address] * (ABNORMAL) POCT glucose (07/22/2024 12:16 PM CDT) Glucose, POC 312(H) 70 - 199 mg/dL Blood 07/22/2024 12:1 6 PM CDT 07/22/2024 12:16 PM CDT Russ Pride MD LAB POCT ORDERABLES - DEVICE Final Result Performing Organization Address City/[facility] Co de Phone Number [facility] [place] [address] * (ABNORMAL) POCT glucose (07/22/2024 8:41 AM CDT) Glucose, POC 239(H) 70 - 199 mg/dL Blood 07/22/2024 8:41 AM CDT 07/22/2024 8:41 AM CDT Russ Pride MD LAB POCT ORDERABLES - DEVICE Final Result Performing Organization Address City/[facility] Co de Phone Number [facility] [place] [address] * (ABNORMAL) POCT glucose (07/21/2024 8:40 PM CDT) Glucose, POC 235(H) 70 - 199 mg/dL Blood 07/21/2024 8:40 PM CDT 07/21/2024 8:40 PM CDT Russ Pride MD LAB POCT ORDERABLES - DEVICE Final Result Performing Organization Address [facility] Co de Phone Number [facility] [place] [address] * (ABNORMAL) POCT glucose (07/21/2024 5:12 PM CDT) Glucose, POC 214(H) 70 - 199 mg/dL Blood 07/21/2024 5:12 PM CDT 07/21/2024 5:12 PM CDT Russ Pride MD LAB POCT ORDERABLES - DEVICE Final Result Performing Organization Address City/[facility] Co de Phone Number [facility] [place] [address] * POCT glucose (07/21/2024 3:02 PM CDT) Glucose, POC 113 70 - 199 mg/dL Blood 07/21/2024 3:02 PM CDT 07/21/2024 3:02 PM CDT Russ Pride MD LAB POCT ORDERABLES - DEVICE Final Result Performing Organization Address [facility] de Phone Number [facility] [place] [address] * (ABNORMAL) POCT glucose (07/21/2024 2:14 PM CDT) Glucose, POC 55(L) 70 - 199 mg/dL Blood 07/21/2024 2:14 PM CDT 07/21/2024 2:14 PM CDT Russ Pride MD LAB POCT ORDERABLES - DEVICE Final Result Performing Organization Address [facility] de Phone Number [facility] [place] [address] * POCT glucose (07/21/2024 12:11 PM CDT) Glucose, POC 156 70 - 199 mg/dL Blood 07/21/2024 12:1 1 PM CDT 07/21/2024 12:11 PM CDT Russ Pride MD LAB POCT ORDERABLES - DEVICE Final Result Performing Organization Address [facility] [place] [address] * POCT glucose (07/21/2024 9:15 AM CDT) Glucose, POC 186 70 - 199 mg/dL Blood 07/21/2024 9:15 AM CDT 07/21/2024 9:15 AM CDT Russ Pride MD LAB POCT ORDERABLES - DEVICE Final Result Performing Organization Address [facility]/ZIP Co de Phone Number [facility] Department [place] [address] * eGFR (07/20/2024 8:23 PM CDT) eGFR [...] ORDERABLES Ayanna vazquez Result Performing Organization Address City/[facility]/ZIP Co de Phone Number [facility] Department [place] [address] * Magnesium (07/20/2024 8:23 PM CDT) Pathologist [facility] Magnesium 2.1 1.4 - 2.5 mg/dL Blood 07/20/2024 8:23 PM CDT 07/20/2024 8:50 PM CDT us Ynes Roman MD LAB BLOOD ORDERABLES Ayanna vazquez Result [facility] Department [place] [address] * (ABNORMAL) Comprehensive metabolic panel (07/20/2024 8:23 PM CDT) Sodium 139 135 - 145 mmol/L Potassium, pl 4.5 3.3 - 4.9 mmol/L [facility] Chloride 101 97 - 110 mmol/L [facility] CO2 27 22 - 32 mmol/L [facility] Anion gap 11 2 - 15 mmol/L [facility] BUN 22 6 - 25 mg/dL [facility] Creatinine 0.94 0.60 - 1.10 mg/dL [facility] Glucose 159 70 - 199 mg/dL [facility] Comment: Interpretive Data Fasting glucose >/= [...] 2022. Calcium 9.8 8.5 - 10.3 mg/dL [facility] Bilirubin, total 0.2 0.1 - 1.2 mg/dL [facility] Protein, pl 7.5 6.5 - 8.5 g/dL [facility] Albumin 3.4(L) 3.5 - 5.0 g/dL [facility] Alk phos 155(H) 40 - 130 Units/L [facility] ALT 7 7 - 45 Units/L [facility] AST 29 10 - 45 Units/L [facility] Blood 07/20/2024 8:23 PM CDT 07/20/2024 8:50 PM CDT Elvira Cooper MD LAB BLOOD ORDERABLES Ayanna george Result Performing Organization Address [facility] Co de Phone Number [facility] Department [place] [address] * (ABNORMAL) CBC without differential (07/20/2024 8:23 PM CDT) [facility] WBC 5.1 3.8 - 9.9 K/cumm Hgb 11.2(L) 11.9 - 15.5 g/dL [facility] Hct 34.8(L) 35.6 - 45.5 % [facility] Plt 279 150 - 400 K/cumm [facility] MPV 9.7 9.1 - 12.3 fL [facility] RBC 3.49(L) 3.90 - 5.20 M/cumm [facility] MCV 99.7(H) 81.3 - 96.4 fL [facility] MCH 32.1 27.1 - 33.3 pg [facility] MCHC 32.2(L) 32.3 - 35.7 g/dL [facility] RDW CV 13.6 11.1 - 14.9 % [facility] RDW SD 49.9(H) 35.7 - 48.1 fL [facility] NRBC abs 0.00 0.00 - 0.01 K/cumm [facility] Blood 07/20/2024 8:23 PM CDT 07/20/2024 8:50 PM CDT Result [facility] Elvira Cooper MD LAB BLOOD ORDERABLES Ayanna vazquez Result Performing Organization Address [facility]/ZIP Co de Phone Number [facility] Department [place] [address] * POCT glucose (07/20/2024 7:44 PM CDT) Glucose, POC 165 70 - 199 mg/dL Blood 07/20/2024 7:44 PM CDT 07/20/2024 7:44 PM CDT Ynes Roman MD LAB POCT ORDERABLES - DEV ICE Final Result Performing Organization Address City/[facility] Co de Phone Number [facility] [place] [address] * POCT glucose (07/20/2024 5:55 PM CDT) Glucose, POC 92 70 - 199 mg/dL Blood 07/20/2024 5:55 PM CDT 07/20/2024 5:55 PM CDT Ynes Roman MD LAB POCT ORDERABLES - DEV ICE Final Result Performing Organization Address City/[facility] Co de Phone Number [facility] [place] [address] * POCT glucose (07/20/2024 12:08 PM CDT) Glucose, POC 173 70 - 199 mg/dL Blood 07/20/2024 12:0 8 PM CDT 07/20/2024 12:08 PM CDT Ynes Roman MD LAB POCT ORDERABLES - DEV ICE Final Result Performing Organization Address City/[facility] Co de Phone Number [facility] [place] [address] * POCT glucose (07/20/2024 8:19 AM CDT) Glucose, POC 170 70 - 199 mg/dL Blood 07/20/2024 8:19 AM CDT 07/20/2024 8:19 AM CDT Ynes Roman MD LAB POCT ORDERABLES - DEV ICE Final Result Performing Organization Address [facility] Co de Phone Number [facility] [place] [address] * (ABNORMAL) Urinalysis, microscopic only (07/20/2024 7:06 AM CDT) WBC, ur 0-5 0 - 5 /HPF RBC, ur 0-2 0 - 2 /HPF [facility] Epithelial cells, squamous, ur 1-5 0 - 5 /HPF [facility] Epithelial cells, transitional, ur 1-5 0 - 0 /HPF [facility] Bacteria, ur 1+(A) [facility] Culture Reflex Comment Reflex conditions for urine culture (WBC >10) not met. [facility] Urine, clean voided 07/20/2024 7:06 AM CDT 07/20/2024 8:11 AM CDT Ynes Roman MD LAB URINE ORDERABLES Ayanna l Result Performing Organization Address [facility] de Phone Number [facility] [place] [address] * (ABNORMAL) Urinalysis reflex to microscopic and culture Urine, clean voided (07/20/2024 7:06 AM CDT) Color, ur Straw Yellow Clarity, ur Clear Clear [facility] Specific gravity, ur 1.008 1.003 - 1.030 [facility] pH, urine 7.0 [facility] Comment: Interpretive Data ? Urine pH is affected by diet, medications, systemic acid-base disturbances, and renal tubular function. ??pH may affect urinary stone formation. ??For example, urine pH below 6.0 may help reduce the tendency for calcium phosphate stones and pH greater than 6.0 may reduce the tendency for uric acid stone formation. Source: [facility] [employer] Current Interpretive Data was last revised on 2017 Protein, ur ql Negative Negative [facility] Glucose, ur ql Trace(A) Negative [facility] Ketones, ur Negative Negative [facility] Bilirubin, ur Negative Negative [facility] Blood, ur 1+(A) Negative [facility] Urobilinogen, ur <2.0 <2.0 mg/dL [facility] Nitrite, ur Negative Negative [facility] Leukocyte esterase, ur Negative Negative [facility] UA reflex comment Reflex to microscopic UA will be performed. [facility] Urine, clean voided 07/20/2024 7:06 AM CDT 07/20/2024 8:11 AM CDT us Ynes Roman MD LAB MICROBIOLOGY - GENERA L ORDERABLES Final Result [facility] Department [place] [address] * (ABNORMAL) eGFR (07/19/2024 9:57 PM CDT) [...] ORDERABLES Ayanna l Result Performing Organization Address City/[facility]/ZIP Co de Phone Number [facility] Department [place] [address] * Magnesium (07/19/2024 9:57 PM CDT) Pathologist [facility] Magnesium 2.2 1.4 - 2.5 mg/dL Blood 07/19/2024 9:57 PM CDT 07/19/2024 10:29 PM CDT Ynes Roman MD LAB BLOOD ORDERABLES Ayanna l Result Performing Organization Address [facility] de Phone Number [facility] [place] [address] * (ABNORMAL) Comprehensive metabolic panel (07/19/2024 9:57 PM CDT) Sodium 138 135 - 145 mmol/L Potassium, pl 5.0(H) 3.3 - 4.9 mmol/L [facility] Comment:Hemolyzed; Potassium value may be falsely elevated by as much as 0.3-0.5 mmol/L. Suggest redraw and reanalysis. Chloride 98 97 - 110 mmol/L [facility] CO2 29 22 - 32 mmol/L [facility] Anion gap 11 2 - 15 mmol/L [facility] BUN 25 6 - 25 mg/dL [facility] Creatinine 1.09 0.60 - 1.10 mg/dL [facility] Glucose 192 70 - 199 mg/dL [facility] Comment: Interpretive Data Fasting glucose >/= [...] 2022. Calcium 9.3 8.5 - 10.3 mg/dL [facility] Bilirubin, total 0.2 0.1 - 1.2 mg/dL [facility] Protein, pl 7.2 6.5 - 8.5 g/dL [facility] Albumin 3.1(L) 3.5 - 5.0 g/dL [facility] Alk phos 154(H) 40 - 130 Units/L [facility] ALT 7 7 - 45 Units/L [facility] AST 33 10 - 45 Units/L [facility] Comment:Hemolyzed; result ma y be falsely elevated Blood 07/19/2024 9:57 PM CDT 07/19/2024 10:29 PM CDT us Elvira Cooper MD LAB BLOOD ORDERABLES Ayanna vazquez Result [facility] Department [place] [address] * (ABNORMAL) CBC without differential (07/19/2024 9:57 PM CDT) Pathologist [facility] WBC 4.7 3.8 - 9.9 K/cumm Hgb 10.6(L) 11.9 - 15.5 g/dL [facility] Hct 33.5(L) 35.6 - 45.5 % [facility] Plt 259 150 - 400 K/cumm [facility] MPV 9.7 9.1 - 12.3 fL [facility] RBC 3.31(L) 3.90 - 5.20 M/cumm [facility] MCV 101.2(H) 81.3 - 96.4 fL [facility] MCH 32.0 27.1 - 33.3 pg [facility] MCHC 31.6(L) 32.3 - 35.7 g/dL [facility] RDW CV 13.8 11.1 - 14.9 % [facility] RDW SD 51.0(H) 35.7 - 48.1 fL [facility] NRBC abs 0.00 0.00 - 0.01 K/cumm [facility] Blood 07/19/2024 9:57 PM CDT 07/19/2024 10:30 PM CDT us Elvira Cooper MD LAB BLOOD ORDERABLES Ayanna l Result Performing Organization Address City/[facility] Co de Phone Number [facility] [place] [address] * (ABNORMAL) POCT glucose (07/19/2024 9:49 PM CDT) Glucose, POC 207(H) 70 - 199 mg/dL Blood 07/19/2024 9:49 PM CDT 07/19/2024 9:49 PM CDT us Ynes Roman MD LAB POCT ORDERABLES - DEV ICE Final Result Performing Organization Address [facility] Co de Phone Number [facility] Department [place] [address] * POCT glucose (07/19/2024 5:03 PM CDT) Glucose, POC 133 70 - 199 mg/dL Blood 07/19/2024 5:03 PM CDT 07/19/2024 5:03 PM CDT us Ynes Roman MD LAB POCT ORDERABLES - DEV ICE Final Result Performing Organization Address [facility] Co de Phone Number [facility] Department [place] [address] * Urea nitrogen, urine, random (07/19/2024 12:59 PM CDT) Urea nitrogen, ur 374 mg/dL Comment: Interpretive Data No reference range established. Current interpretive data was last revised 2019. Urine 07/19/2024 12:5 9 PM CDT 07/19/2024 1:46 PM CDT us Ynes Roman MD LAB URINE ORDERABLES Ayanna l Result Performing Organization Address [facility] Co de Phone Number [facility] [place] [address] * Sodium, urine, random (07/19/2024 12:59 PM CDT) Sodium, ur 85 mmol/L Comment: Interpretive Data No reference range established. Current interpretive data was last revised 2019. Urine 07/19/2024 12:5 9 PM CDT 07/19/2024 1:46 PM CDT us Ynes Roman MD LAB URINE ORDERABLES Ayanna l Result Performing Organization Address [facility] Co de Phone Number [facility] [place] [address] * Creatinine, urine, random (07/19/2024 12:59 PM CDT) Creatinine Ur 70.4 mg/dL Comment: Interpretive Data No reference range established. Current interpretive data was last revised 2019. Urine 07/19/2024 12:5 9 PM CDT 07/19/2024 1:46 PM CDT us Ynes Roman MD LAB URINE ORDERABLES Ayanna l Result Performing Organization Address City/[facility] Co de Phone Number [facility] [place] [address] * (ABNORMAL) POCT glucose (07/19/2024 12:48 PM CDT) [facility] Glucose, POC 222(H) 70 - 199 mg/dL Blood 07/19/2024 12:4 8 PM CDT 07/19/2024 12:48 PM CDT us Ynes Roman MD LAB POCT ORDERABLES - DEV ICE Final Result Performing Organization Address City/[facility]/ZIP Co de Phone Number [facility] [place] [address] * POCT glucose (07/19/2024 12:11 PM CDT) [facility] Glucose, POC 179 70 - 199 mg/dL Blood 07/19/2024 12:1 1 PM CDT 07/19/2024 12:11 PM CDT us Ynes Roman MD LAB POCT ORDERABLES - DEV ICE Final Result Performing Organization Address City/[facility] Co de Phone Number [facility] [place] [address] * (ABNORMAL) CBC with auto differential (07/18/2024 9:07 PM CDT) [facility] WBC 5.3 3.8 - 9.9 K/cumm Hgb 11.4(L) 11.9 - 15.5 g/dL [facility] Hct 35.5(L) 35.6 - 45.5 % [facility] Plt 257 150 - 400 K/cumm [facility] MPV 9.8 9.1 - 12.3 fL [facility] RBC 3.50(L) 3.90 - 5.20 M/cumm [facility] MCV 101.4(H) 81.3 - 96.4 fL [facility] MCH 32.6 27.1 - 33.3 pg [facility] MCHC 32.1(L) 32.3 - 35.7 g/dL [facility] RDW CV 13.8 11.1 - 14.9 % [facility] RDW SD 51.6(H) 35.7 - 48.1 fL [facility] NRBC abs 0.00 0.00 - 0.01 K/cumm [facility] Blood 07/18/2024 9:07 PM CDT 07/18/2024 9:54 PM CDT us Ynes Roman MD LAB BLOOD ORDERABLES Ayanna vazquez Result [facility] Department [place] [address] * Differential, auto (07/18/2024 9:07 PM CDT) Neutrophil abs 3.5 1.5 - 6.5 K/cumm Imm gran abs 0.1 0.0 - 0.1 K/cumm [facility] Lymphocyte abs 1.0 0.8 - 3.3 K/cumm [facility] Monocyte abs 0.7 0.2 - 0.8 K/cumm [facility] Eosinophil abs 0.2 0.0 - 0.5 K/cumm [facility] Basophil abs 0.1 0.0 - 0.1 K/cumm [facility] Neutrophil pct 63.5 % [facility] Comment: Interpretive Data Percent cell count reference ranges are not reported, since discordance with absolute values may lead to misinterpretation of CBC data. Current Interpretive Data was last revised on 2018. Imm gran pct 1.5 % [facility] Comment: Interpretive Data Percent cell count reference ranges are not reported, since discordance with absolute values may lead to misinterpretation of CBC data. Current Interpretive Data was last revised on 2018. Lymphocyte pct 18.2 % [facility] Comment: Interpretive Data Percent cell count reference ranges are not reported, since discordance with absolute values may lead to misinterpretation of CBC data. Current Interpretive Data was last revised on 2018. Monocyte pct 12.2 % [facility] Comment: Interpretive Data Percent cell count reference ranges are not reported, since discordance with absolute values may lead to misinterpretation of CBC data. Current Interpretive Data was last revised on 2018. Eosinophil pct 3.5 % [facility] Comment: Interpretive Data Percent cell count reference ranges are not reported, since discordance with absolute values may lead to misinterpretation of CBC data. Current Interpretive Data was last revised on 2018. Basophil pct 1.1 % [facility] Comment: Interpretive Data Percent cell count reference ranges are not reported, since discordance with absolute values may lead to misinterpretation of CBC data. Current Interpretive Data was last revised on 2018. Blood 07/18/2024 9:07 PM CDT 07/18/2024 9:54 PM CDT us Ynes Roman MD LAB BLOOD ORDERABLES Ayanna vazquez Result Performing Organization Address City/State/[facility] Co de Phone Number [facility] Department [place] [address] * (ABNORMAL) eGFR (07/18/2024 9:07 PM CDT) [...] ORDERABLES Ayanna l Result Performing Organization Address City/[facility]/ZIP Co de Phone Number [facility] Department [place] [address] * Magnesium (07/18/2024 9:07 PM CDT) [facility] Magnesium 2.0 1.4 - 2.5 mg/dL Blood 07/18/2024 9:07 PM CDT 07/18/2024 9:49 PM CDT us Ynes Roman MD LAB BLOOD ORDERABLES Ayanna l Result Performing Organization Address City/[facility]/ZIP Co de Phone Number [facility] Department [place] [address] * (ABNORMAL) Comprehensive metabolic panel (07/18/2024 9:07 PM CDT) Sodium 131(L) 135 - 145 mmol/L Potassium, pl 4.5 3.3 - 4.9 mmol/L [facility] Chloride 95(L) 97 - 110 mmol/L [facility] CO2 28 22 - 32 mmol/L [facility] Anion gap 8 2 - 15 mmol/L [facility] BUN 26(H) 6 - 25 mg/dL [facility] Creatinine 1.66(H) 0.60 - 1.10 mg/dL [facility] Glucose 251(H) 70 - 199 mg/dL [facility] Comment: Interpretive Data Fasting glucose >/= [...] 2022. Calcium 9.6 8.5 - 10.3 mg/dL [facility] Bilirubin, total 0.3 0.1 - 1.2 mg/dL [facility] Protein, pl 7.8 6.5 - 8.5 g/dL [facility] Albumin 3.5 3.5 - 5.0 g/dL [facility] Alk phos 165(H) 40 - 130 Units/L [facility] ALT 9 7 - 45 Units/L [facility] AST 30 10 - 45 Units/L [facility] Blood 07/18/2024 9:07 PM CDT 07/18/2024 9:49 PM CDT us Elvira Cooper MD LAB BLOOD ORDERABLES Ayanna vazquez Result [facility] Department [place] [address] * (ABNORMAL) CBC without differential (07/18/2024 9:07 PM CDT) WBC 5.3 3.8 - 9.9 K/cumm Hgb 11.4(L) 11.9 - 15.5 g/dL [facility] Hct 35.5(L) 35.6 - 45.5 % [facility] Plt 257 150 - 400 K/cumm [facility] MPV 9.8 9.1 - 12.3 fL [facility] RBC 3.50(L) 3.90 - 5.20 M/cumm [facility] [facility] MCV 101.4(H) 81.3 - 96.4 fL [facility] MCH 32.6 27.1 - 33.3 pg [facility] MCHC 32.1(L) 32.3 - 35.7 g/dL [facility] RDW CV 13.8 11.1 - 14.9 % [facility] RDW SD 51.6(H) 35.7 - 48.1 fL [facility] NRBC abs 0.00 0.00 - 0.01 K/cumm [facility] Blood 07/18/2024 9:07 PM CDT 07/18/2024 9:50 PM CDT Elvira Cooper MD LAB BLOOD ORDERABLES Ayanna l Result Performing Organization Address [facility] Co de Phone Number [facility] Department [place] [address] * (ABNORMAL) POCT glucose (07/18/2024 8:17 PM CDT) Glucose, POC 304(H) 70 - 199 mg/dL Blood 07/18/2024 8:17 PM CDT 07/18/2024 8:17 PM CDT Ynes Roman MD LAB POCT ORDERABLES - DEV ICE Final Result Performing Organization Address City/[facility]/ZIP Co de Phone Number [facility] Department [place] [address] * (ABNORMAL) POCT glucose (07/18/2024 5:16 PM CDT) Glucose, POC 378(H) 70 - 199 mg/dL Blood 07/18/2024 5:16 PM CDT 07/18/2024 5:16 PM CDT Ynes Roman MD LAB POCT ORDERABLES - DEV ICE Final Result Performing Organization Address City/[facility] de Phone Number [facility] Department [place] [address] * (ABNORMAL) POCT glucose (07/18/2024 11:41 AM CDT) Glucose, POC 205(H) 70 - 199 mg/dL Blood 07/18/2024 11:4 1 AM CDT 07/18/2024 11:41 AM CDT us Ynes Roman MD LAB POCT ORDERABLES - DEV ICE Final Result Performing Organization Address [facility] de Phone Number [facility] Department [place] [address] * (ABNORMAL) POCT glucose (07/18/2024 8:17 AM CDT) Glucose, POC 215(H) 70 - 199 mg/dL Blood 07/18/2024 8:17 AM CDT 07/18/2024 8:17 AM CDT us Ynes Roman MD LAB POCT ORDERABLES - DEV ICE Final Result Performing Organization Address [facility] de Phone Number [facility] Department [place] [address] * eGFR (07/17/2024 9:17 PM CDT) eGFR [...] ORDERABLES Ayanna l Result Performing Organization Address City/[facility]/ZIP Co de Phone Number [facility] Department [place] [address] * Magnesium (07/17/2024 9:17 PM CDT) Pathologist [facility] Magnesium 1.8 1.4 - 2.5 mg/dL Blood 07/17/2024 9:17 PM CDT 07/17/2024 10:06 PM CDT Ynes Roman MD LAB BLOOD ORDERABLES Ayanna l Result [facility] [place] [address] * (ABNORMAL) Comprehensive metabolic panel (07/17/2024 9:17 PM CDT) Sodium 133(L) 135 - 145 mmol/L Potassium, pl 3.9 3.3 - 4.9 mmol/L [facility] Chloride 95(L) 97 - 110 mmol/L [facility] CO2 31 22 - 32 mmol/L [facility] Anion gap 7 2 - 15 mmol/L [facility] BUN 19 6 - 25 mg/dL [facility] Creatinine 0.89 0.60 - 1.10 mg/dL [facility] Glucose 298(H) 70 - 199 mg/dL [facility] Comment: Interpretive Data Fasting glucose >/= [...] 2022. Calcium 9.1 8.5 - 10.3 mg/dL [facility] Bilirubin, total 0.3 0.1 - 1.2 mg/dL [facility] Protein, pl 7.2 6.5 - 8.5 g/dL [facility] Albumin 3.2(L) 3.5 - 5.0 g/dL [facility] Alk phos 138(H) 40 - 130 Units/L [facility] ALT 6(L) 7 - 45 Units/L [facility] AST 19 10 - 45 Units/L [facility] Blood 07/17/2024 9:17 PM CDT 07/17/2024 10:06 PM CDT us Elvira Cooper MD LAB BLOOD ORDERABLES Ayanna l Result [facility] [place] [address] * (ABNORMAL) CBC without differential (07/17/2024 9:17 PM CDT) WBC 4.5 3.8 - 9.9 K/cumm Hgb 11.1(L) 11.9 - 15.5 g/dL [facility] Hct 34.5(L) 35.6 - 45.5 % [facility] Plt 228 150 - 400 K/cumm [facility] MPV 10.0 9.1 - 12.3 fL [facility] RBC 3.48(L) 3.90 - 5.20 M/cumm [facility] MCV 99.1(H) 81.3 - 96.4 fL [facility] MCH 31.9 27.1 - 33.3 pg [facility] MCHC 32.2(L) 32.3 - 35.7 g/dL [facility] RDW CV 13.9 11.1 - 14.9 % [facility] RDW SD 50.4(H) 35.7 - 48.1 fL [facility] NRBC abs 0.00 0.00 - 0.01 K/cumm [facility] Blood 07/17/2024 9:17 PM CDT 07/17/2024 10:09 PM CDT us Elvira Cooper MD LAB BLOOD ORDERABLES Ayanna l Result [facility] Department [place] [address] * (ABNORMAL) POCT glucose (07/17/2024 9:04 PM CDT) Glucose, POC 311(H) 70 - 199 mg/dL Blood 07/17/2024 9:04 PM CDT 07/17/2024 9:04 PM CDT us Ynes Roman MD LAB POCT ORDERABLES - DEV ICE Final Result [facility] [place] [address] * POCT glucose (07/17/2024 4:48 PM CDT) Glucose, POC 155 70 - 199 mg/dL Blood 07/17/2024 4:48 PM CDT 07/17/2024 4:48 PM CDT us Ynes Roman MD LAB POCT ORDERABLES - DEV ICE Final Result [facility] Department [place] [address] * NM MPI SPECT Single Study (Rest) [...] ORDERABLES - DEV ICE Final Result [facility] Department [place] [address] * POCT glucose (07/17/2024 7:45 AM CDT) [facility] Glucose, POC 184 70 - 199 mg/dL Blood 07/17/2024 7:45 AM CDT 07/17/2024 7:45 AM CDT Ynes Roman MD LAB POCT ORDERABLES - DEV ICE Final Result Performing Organization Address [facility] Co de Phone Number [facility] Department [place] [address] * (ABNORMAL) CBC with auto differential (07/16/2024 9:13 PM CDT) [facility] WBC 5.6 3.8 - 9.9 K/cumm Hgb 11.0(L) 11.9 - 15.5 g/dL [facility] Hct 33.4(L) 35.6 - 45.5 % [facility] Plt 219 150 - 400 K/cumm [facility] MPV 9.9 9.1 - 12.3 fL [facility] RBC 3.35(L) 3.90 - 5.20 M/cumm [facility] MCV 99.7(H) 81.3 - 96.4 fL [facility] MCH 32.8 27.1 - 33.3 pg [facility] MCHC 32.9 32.3 - 35.7 g/dL [facility] RDW CV 13.9 11.1 - 14.9 % [facility] RDW SD 50.5(H) 35.7 - 48.1 fL [facility] NRBC abs 0.00 0.00 - 0.01 K/cumm [facility] Blood 07/16/2024 9:13 PM CDT 07/16/2024 9:50 PM CDT Ynes Roman MD LAB BLOOD ORDERABLES Ayanna l Result Performing Organization Address City/[facility]/ZIP Co de Phone Number [facility] Department [place] [address] * Differential, auto (07/16/2024 9:13 PM CDT) Neutrophil abs 3.5 1.5 - 6.5 K/cumm Imm gran abs 0.0 0.0 - 0.1 K/cumm [facility] Lymphocyte abs 1.1 0.8 - 3.3 K/cumm [facility] Monocyte abs 0.7 0.2 - 0.8 K/cumm [facility] Eosinophil abs 0.1 0.0 - 0.5 K/cumm [facility] Basophil abs 0.1 0.0 - 0.1 K/cumm [facility] Neutrophil pct 64.0 % [facility] Comment: Interpretive Data Percent cell count reference ranges are not reported, since discordance with absolute values may lead to misinterpretation of CBC data. Current Interpretive Data was last revised on 2018. Imm gran pct 0.5 % [facility] Comment: Interpretive Data Percent cell count reference ranges are not reported, since discordance with absolute values may lead to misinterpretation of CBC data. Current Interpretive Data was last revised on 2018. Lymphocyte pct 19.2 % [facility] Comment: Interpretive Data Percent cell count reference ranges are not reported, since discordance with absolute values may lead to misinterpretation of CBC data. Current Interpretive Data was last revised on 2018. Monocyte pct 12.9 % [facility] Comment: Interpretive Data Percent cell count reference ranges are not reported, since discordance with absolute values may lead to misinterpretation of CBC data. Current Interpretive Data was last revised on 2018. Eosinophil pct 2.5 % [facility] Comment: Interpretive Data Percent cell count reference ranges are not reported, since discordance with absolute values may lead to misinterpretation of CBC data. Current Interpretive Data was last revised on 2018. Basophil pct 0.9 % [facility] Comment: Interpretive Data Percent cell count reference ranges are not reported, since discordance with absolute values may lead to misinterpretation of CBC data. Current Interpretive Data was last revised on 2018. Blood 07/16/2024 9:13 PM CDT 07/16/2024 9:50 PM CDT us Ynes Roman MD LAB BLOOD ORDERABLES Ayanna l Result Performing Organization Address City/[facility] Co de Phone Number [facility] Department [place] [address] * eGFR (07/16/2024 9:13 PM CDT) eGFR [...] ORDERABLES Ayanna l Result Performing Organization Address City/[facility]/ZIP Co de Phone Number [facility] [place] [address] * Magnesium (07/16/2024 9:13 PM CDT) Pathologist [facility] Magnesium 2.0 1.4 - 2.5 mg/dL Blood 07/16/2024 9:13 PM CDT 07/16/2024 9:48 PM CDT us Ynes Roman MD LAB BLOOD ORDERABLES Ayanna l Result [facility] Department [place] [address] * (ABNORMAL) Comprehensive metabolic panel (07/16/2024 9:13 PM CDT) Pathologist [facility] Sodium 134(L) 135 - 145 mmol/L Potassium, pl 4.0 3.3 - 4.9 mmol/L [facility] Chloride 93(L) 97 - 110 mmol/L [facility] CO2 33(H) 22 - 32 mmol/L [facility] Anion gap 8 2 - 15 mmol/L [facility] BUN 17 6 - 25 mg/dL [facility] Creatinine 1.01 0.60 - 1.10 mg/dL [facility] Glucose 106 70 - 199 mg/dL [facility] Comment: Interpretive Data Fasting glucose >/= [...] 2022. Calcium 9.5 8.5 - 10.3 mg/dL [facility] Bilirubin, total 0.3 0.1 - 1.2 mg/dL [facility] Protein, pl 7.3 6.5 - 8.5 g/dL [facility] Albumin 3.2(L) 3.5 - 5.0 g/dL [facility] Alk phos 148(H) 40 - 130 Units/L [facility] ALT 5(L) 7 - 45 Units/L [facility] AST 24 10 - 45 Units/L [facility] Blood 07/16/2024 9:13 PM CDT 07/16/2024 9:48 PM CDT Elvira Cooper MD LAB BLOOD ORDERABLES Ayanna l Result Performing Organization Address City/[facility]/ZIP Co de Phone Number [facility] Department [place] [address] * (ABNORMAL) CBC without differential (07/16/2024 9:13 PM CDT) Pathologist [facility] WBC 5.6 3.8 - 9.9 K/cumm Hgb 11.0(L) 11.9 - 15.5 g/dL [facility] Hct 33.4(L) 35.6 - 45.5 % [facility] Plt 219 150 - 400 K/cumm [facility] MPV 9.9 9.1 - 12.3 fL [facility] RBC 3.35(L) 3.90 - 5.20 M/cumm [facility] MCV 99.7(H) 81.3 - 96.4 fL [facility] MCH 32.8 27.1 - 33.3 pg [facility] MCHC 32.9 32.3 - 35.7 g/dL [facility] RDW CV 13.9 11.1 - 14.9 % [facility] RDW SD 50.5(H) 35.7 - 48.1 fL [facility] NRBC abs 0.00 0.00 - 0.01 K/cumm [facility] Blood 07/16/2024 9:13 PM CDT 07/16/2024 9:47 PM CDT Elvira Cooper MD LAB BLOOD ORDERABLES Ayanna l Result [facility] [place] [address] * POCT glucose (07/16/2024 8:06 PM CDT) Glucose, POC 86 70 - 199 mg/dL Blood 07/16/2024 8:06 PM CDT 07/16/2024 8:06 PM CDT us Ynes Roman MD LAB POCT ORDERABLES - DEV ICE Final Result Performing Organization Address [facility] [place] [address] * POCT glucose (07/16/2024 4:23 PM CDT) Glucose, POC 100 70 - 199 mg/dL Blood 07/16/2024 4:23 PM CDT 07/16/2024 4:23 PM CDT us Ynes Roman MD LAB POCT ORDERABLES - DEV ICE Final Result Performing Organization Address [facility] [place] [address] * CTA Heart and Coronary Arteries W [...] DEV ICE Final Result Performing Organization Address [facility] Co de Phone Number [facility] Department [place] [address] * POCT glucose (07/16/2024 7:42 AM CDT) Glucose, POC 137 70 - 199 mg/dL Blood 07/16/2024 7:4 2 AM CDT 07/16/2024 7:42 AM CDT us Ynes Roman MD LAB POCT ORDERABLES - DEV ICE Final Result Performing Organization Address [facility] Co de Phone Number [facility] Department [place] [address] * Potassium, whole blood (07/16/2024 2:15 AM CDT) Potassium, bld 4.1 3.3 - 4.9 mmol/L Blood 07/16/2024 2:15 AM CDT 07/16/2024 3:57 AM CDT Ynes Roman MD LAB BLOOD ORDERABLES Ayanna l Result Performing Organization Address City/State/ZIP Co sd Phone Number [facility] Department [place] [address] * eGFR (07/15/2024 10:22 PM CDT) eGFR [...] ORDERABLES Ayanna l Result Performing Organization Address City/[facility]/ZIP Co de Phone Number [facility] Department [place] [address] * Magnesium (07/15/2024 10:22 PM CDT) Magnesium 1.8 1.4 - 2.5 mg/dL Blood 07/15/2024 10:2 2 PM CDT 07/15/2024 11:27 PM CDT Ynes Roman MD LAB BLOOD ORDERABLES Ayanna l Result Performing Organization Address [facility] de Phone Number [facility] Department [place] [address] * (ABNORMAL) Comprehensive metabolic panel (07/15/2024 10:22 PM CDT) Pathologist [facility] Sodium 137 135 - 145 mmol/L Potassium, pl See Comment 3.3 - 4.9 mmol/L [facility] Comment:Credited; Hemolyzed Specimen Chloride 97 97 - 110 mmol/L [facility] CO2 31 22 - 32 mmol/L [facility] Anion gap 9 2 - 15 mmol/L [facility] BUN 20 6 - 25 mg/dL [facility] Creatinine 0.77 0.60 - 1.10 mg/dL [facility] Glucose 119 70 - 199 mg/dL [facility] Comment: Interpretive Data Fasting glucose >/= [...] 2022. Calcium 9.5 8.5 - 10.3 mg/dL [facility] Bilirubin, total 0.3 0.1 - 1.2 mg/dL [facility] Protein, pl 7.5 6.5 - 8.5 g/dL [facility] Albumin 3.3(L) 3.5 - 5.0 g/dL [facility] Alk phos 143(H) 40 - 130 Units/L [facility] Comment:Hemolyzed; result ma y be falsely decreased ALT See Comment 7 - 45 Units/L [facility] Comment:Credited; Hemolyzed Specimen AST See Comment 10 - 45 Units/L [facility] Comment:Credited; Hemolyzed Specimen Blood 07/15/2024 10:2 2 PM CDT 07/15/2024 11:27 PM CDT us Elvira Cooper MD LAB BLOOD ORDERABLES Ayanna vazquez Result [facility] Department [place] [address] * (ABNORMAL) CBC without differential (07/15/2024 10:22 PM CDT) WBC 6.5 3.8 - 9.9 K/cumm Hgb 11.0(L) 11.9 - 15.5 g/dL [facility] Hct 33.6(L) 35.6 - 45.5 % [facility] Plt 233 150 - 400 K/cumm [facility] MPV 10.5 9.1 - 12.3 fL [facility] RBC 3.37(L) 3.90 - 5.20 M/cumm [facility] MCV 99.7(H) 81.3 - 96.4 fL [facility] MCH 32.6 27.1 - 33.3 pg [facility] MCHC 32.7 32.3 - 35.7 g/dL [facility] RDW CV 14.3 11.1 - 14.9 % [facility] RDW SD 52.1(H) 35.7 - 48.1 fL [facility] NRBC abs 0.00 0.00 - 0.01 K/cumm [facility] Blood 07/15/2024 10:2 2 PM CDT 07/15/2024 11:27 PM CDT Elvira Cooper MD LAB BLOOD ORDERABLES Ayanna l Result Performing Organization Address City/[facility] Co de Phone Number [facility] [place] [address] * POCT glucose (07/15/2024 7:47 PM CDT) Glucose, POC 147 70 - 199 mg/dL Blood 07/15/2024 7:47 PM CDT 07/15/2024 7:47 PM CDT us Ynes Roman MD LAB POCT ORDERABLES - DEV ICE Final Result Performing Organization Address City/[facility] Co de Phone Number [facility] [place] [address] * POCT glucose (07/15/2024 4:08 PM CDT) Glucose, POC 103 70 - 199 mg/dL Blood 07/15/2024 4:08 PM CDT 07/15/2024 4:08 PM CDT Ynes Roman MD LAB POCT ORDERABLES - DEV ICE Final Result Performing Organization Address City/[facility] Co de Phone Number [facility] [place] [address] * (ABNORMAL) POCT glucose (07/15/2024 11:10 AM CDT) Glucose, POC 221(H) 70 - 199 mg/dL Blood 07/15/2024 11:1 0 AM CDT 07/15/2024 11:10 AM CDT us Ynes Roman MD LAB POCT ORDERABLES - DEV ICE Final Result Performing Organization Address [facility] Co de Phone Number [facility] [place] [address] * POCT glucose (07/15/2024 8:48 AM CDT) Glucose, POC 160 70 - 199 mg/dL Blood 07/15/2024 8:48 AM CDT 07/15/2024 8:48 AM CDT us Ynes Roman MD LAB POCT ORDERABLES - DEV ICE Final Result Performing Organization Address [facility] [place] [address] * POCT glucose (07/15/2024 8:07 AM CDT) Glucose, POC 173 70 - 199 mg/dL Blood 07/15/2024 8:0 7 AM CDT 07/15/2024 8:07 AM CDT Ynes Roman MD LAB POCT ORDERABLES - DEV ICE Final Result Performing Organization Address [facility] [place] [address] * (ABNORMAL) Comprehensive metabolic panel (07/14/2024 9:36 PM CDT) Sodium 140 135 - 145 mmol/L Potassium, pl 3.9 3.3 - 4.9 mmol/L [facility] Chloride 100 97 - 110 mmol/L [facility] CO2 34(H) 22 - 32 mmol/L [facility] Anion gap 6 2 - 15 mmol/L [facility] BUN 18 6 - 25 mg/dL [facility] Creatinine 0.80 0.60 - 1.10 mg/dL [facility] Glucose 85 70 - 199 mg/dL [facility] Comment: Interpretive Data Fasting glucose >/= [...] 2022. Calcium 9.7 8.5 - 10.3 mg/dL [facility] Bilirubin, total 0.3 0.1 - 1.2 mg/dL [facility] Protein, pl 7.5 6.5 - 8.5 g/dL [facility] Albumin 3.4(L) 3.5 - 5.0 g/dL [facility] Alk phos 156(H) 40 - 130 Units/L [facility] ALT 6(L) 7 - 45 Units/L [facility] AST 23 10 - 45 Units/L [facility] Blood 07/14/2024 9:36 PM CDT 07/14/2024 10:48 PM CDT us Ynes Roman MD LAB BLOOD ORDERABLES Ayanna vazquez Result [facility] Department [place] [address] * eGFR (07/14/2024 9:36 PM CDT) eGFR [...] ORDERABLES Ayanna l Result Performing Organization Address City/[facility]/ZIP Co de Phone Number [facility] [place] [address] * Magnesium (07/14/2024 9:36 PM CDT) Magnesium 1.9 1.4 - 2.5 mg/dL Blood 07/14/2024 9:36 PM CDT 07/14/2024 10:48 PM CDT us Ynes Roman MD LAB BLOOD ORDERABLES Ayanna l Result Performing Organization Address [facility]/ZIP Co de Phone Number [facility] Department [place] [address] * Bilirubin, direct (07/14/2024 9:36 PM CDT) Bilirubin, direct <0.2 0.1 - 0.3 mg/dL Blood 07/14/2024 9:36 PM CDT 07/14/2024 10:48 PM CDT Elvira Cooper MD LAB BLOOD ORDERABLES Ayanna l Result Performing Organization Address [facility] Co de Phone Number [facility] [place] [address] * Creatinine (07/14/2024 9:36 PM CDT) Creatinine 0.80 0.60 - 1.10 mg/dL Blood 07/14/2024 9:36 PM CDT 07/14/2024 10:48 PM CDT Narrative [facility] - 07/14/2024 11:23 PM CDT Baseline prior to rivaroxaban initiation Ynes Roman MD LAB BLOOD ORDERABLES Ayanna l Result Performing Organization Address [facility] de Phone Number [facility] [place] [address] * (ABNORMAL) CBC without differential (07/14/2024 9:36 PM CDT) Pathologist [facility] WBC 6.7 3.8 - 9.9 K/cumm Hgb 11.2(L) 11.9 - 15.5 g/dL [facility] Hct 34.2(L) 35.6 - 45.5 % [facility] Plt 230 150 - 400 K/cumm [facility] MPV 9.7 9.1 - 12.3 fL [facility] RBC 3.43(L) 3.90 - 5.20 M/cumm [facility] MCV 99.7(H) 81.3 - 96.4 fL [facility] MCH 32.7 27.1 - 33.3 pg [facility] MCHC 32.7 32.3 - 35.7 g/dL [facility] RDW CV 14.1 11.1 - 14.9 % [facility] RDW SD 51.3(H) 35.7 - 48.1 fL [facility] NRBC abs 0.00 0.00 - 0.01 K/cumm [facility] Blood 07/14/2024 9:36 PM CDT 07/14/2024 10:51 PM CDT Elvira Cooper MD LAB BLOOD ORDERABLES Ayanna l Result Performing Organization Address City/[facility] Co de Phone Number [facility] [place] [address] * POCT glucose (07/14/2024 8:26 PM CDT) Glucose, POC 100 70 - 199 mg/dL Blood 07/14/2024 8:26 PM CDT 07/14/2024 8:26 PM CDT us Ynes Roman MD LAB POCT ORDERABLES - DEV ICE Final Result Performing Organization Address [facility] Co de Phone Number [facility] [place] [address] * POCT glucose (07/14/2024 4:14 PM CDT) Glucose, POC 184 70 - 199 mg/dL Blood 07/14/2024 4:14 PM CDT 07/14/2024 4:14 PM CDT Ynes Roman MD LAB POCT ORDERABLES - DEV ICE Final Result Performing Organization Address City/[facility] de Phone Number [facility] [place] [address] * XR Chest 1 View (07/14/2024 3:00 [...] by: Liban Graff M.D. Ynes Roman MD IM XR PROCEDURES Final R esult * Protime-INR (07/14/2024 11:54 AM CDT) PT 12.1 9.7 - 13.0 sec INR 1.12 0.90 - 1.20 [facility] Comment: Interpretive data Oral anticoagulant therapeutic ranges: Venous thromboembolism prophylaxis or treatment: 2.0-3.0 CARDIOLOGY Standard range: 2.0-3.0 High-intensity range: 2.5-3.5 Refer to indication-specific guidelines for appropriate target ranges for prosthetic heart valve replacement. Current interpretive data was last revised on 2019. Blood 07/14/2024 11:5 4 AM CDT 07/14/2024 1:27 PM CDT Ynes Roman MD LAB BLOOD ORDERABLES Ayanna vazquez Result Performing Organization Address [facility] Co de Phone Number [facility] Department [place] [address] * (ABNORMAL) aPTT (07/14/2024 11:54 AM CDT) aPTT 27(L) 28 - 38 sec Comment: Interpretive Data Heparin therapeutic range: 66.0 - 100.0 seconds. Range based on correlation with therapeutic heparin activity range of 0.3 - 0.7 Units/mL. Current interpretive data was last revised on 2023. Blood 07/14/2024 11:5 4 AM CDT 07/14/2024 1:27 PM CDT Narrative [facility] - 07/14/2024 1:58 PM CDT STAT [...] ORDERABLES Ayanna l Result Performing Organization Address [facility] Co de Phone Number [facility] Department [place] [address] * (ABNORMAL) POCT glucose (07/14/2024 11:26 AM CDT) Glucose, POC 310(H) 70 - 199 mg/dL Blood 07/14/2024 11:2 6 AM CDT 07/14/2024 11:26 AM CDT Ynes Roman MD LAB POCT ORDERABLES - DEV ICE Final Result Performing Organization Address [facility] de Phone Number [facility] [place] [address] * (ABNORMAL) POCT glucose (07/14/2024 8:18 AM CDT) Glucose, POC 331(H) 70 - 199 mg/dL Blood 07/14/2024 8:18 AM CDT 07/14/2024 8:18 AM CDT nYes Roman MD LAB POCT ORDERABLES - DEV ICE Final Result Performing Organization Address [facility] de Phone Number [facility] [place] [address] * (ABNORMAL) POCT glucose (07/14/2024 8:17 AM CDT) Glucose, POC 248(H) 70 - 199 mg/dL Blood 07/14/2024 8:17 AM CDT 07/14/2024 8:17 AM CDT Ynes Roman MD LAB POCT ORDERABLES - DEV ICE Final Result Performing Organization Address City/[facility] [place] [address] * (ABNORMAL) CBC without differential (07/13/2024 9:03 PM CDT) [facility] WBC 5.6 3.8 - 9.9 K/cumm Hgb 11.1(L) 11.9 - 15.5 g/dL [facility] Hct 35.5(L) 35.6 - 45.5 % [facility] Plt 242 150 - 400 K/cumm [facility] MPV 9.4 9.1 - 12.3 fL [facility] RBC 3.46(L) 3.90 - 5.20 M/cumm [facility] MCV 102.6(H) 81.3 - 96.4 fL [facility] MCH 32.1 27.1 - 33.3 pg [facility] MCHC 31.3(L) 32.3 - 35.7 g/dL [facility] RDW CV 14.2 11.1 - 14.9 % [facility] RDW SD 52.8(H) 35.7 - 48.1 fL [facility] NRBC abs 0.00 0.00 - 0.01 K/cumm [facility] Blood 07/13/2024 9:03 PM CDT 07/13/2024 9:47 PM CDT Elvira Cooper MD LAB BLOOD ORDERABLES Ayanna l Result Performing Organization Address City/[facility]/ZIP Co de Phone Number [facility] [place] [address] * Magnesium (07/13/2024 9:00 PM CDT) Pathologist [facility] Magnesium 1.8 1.4 - 2.5 mg/dL Blood 07/13/2024 9:00 PM CDT 07/13/2024 9:45 PM CDT Elvira Cooper MD LAB BLOOD ORDERABLES Ayanna l Result [facility] [place] [address] * eGFR (07/13/2024 9:00 PM CDT) eGFR 83 >=60 mL/min/1. 73 [...] MD LAB BLOOD ORDERABLES Ayanna vazquez Result [facility] Department [place] [address] * (ABNORMAL) Comprehensive metabolic panel (07/13/2024 9:00 PM CDT) Sodium 137 135 - 145 mmol/L Potassium, pl 4.4 3.3 - 4.9 mmol/L [facility] Chloride 99 97 - 110 mmol/L [facility] CO2 30 22 - 32 mmol/L [facility] Anion gap 8 2 - 15 mmol/L [facility] BUN 13 6 - 25 mg/dL [facility] Creatinine 0.80 0.60 - 1.10 mg/dL [facility] Glucose 310(H) 70 - 199 mg/dL [facility] Comment: Interpretive Data Fasting glucose >/= [...] 2022. Calcium 9.4 8.5 - 10.3 mg/dL [facility] Bilirubin, total 0.3 0.1 - 1.2 mg/dL [facility] Protein, pl 7.6 6.5 - 8.5 g/dL [facility] Albumin 3.5 3.5 - 5.0 g/dL [facility] Alk phos 158(H) 40 - 130 Units/L [facility] ALT 12 7 - 45 Units/L [facility] AST 46(H) 10 - 45 Units/L [facility] Blood 07/13/2024 9:00 PM CDT 07/13/2024 9:45 PM CDT Elvira Cooper MD LAB BLOOD ORDERABLES Ayanna l Result Performing Organization Address City/[facility]/ZIP Co de Phone Number [facility] Department [place] [address] * POCT glucose (07/13/2024 7:58 PM CDT) [facility] Signature Glucose, POC 186 70 - 199 mg/dL Blood 07/13/2024 7:58 PM CDT 07/13/2024 7:58 PM CDT Elvira Cooper MD LAB POCT ORDERABLES - DEV ICE Final Result Performing Organization Address [facility]/ZIP Co de Phone Number [facility] Department [place] [address] * (ABNORMAL) Aerobic culture and gram stain [...] still be effective in some patients. (.) [facility] Organism STAPHYLOCOCCUS AUREUS [facility] Hardware (Lead) 07/13/2024 5 :34 PM CDT 07/13/2024 6:47 PM CDT Narrative [facility] - 07/18/2024 12:57 PM CDT Ventricular lead tip Testing performed by [facility] ([phone]) Specimens submitted from normally sterile body sites [...] Staphylococcus aureus Ceftriaxone (DEZ) INTERPRETATIO N Susceptible us Elvira Cooper MD LAB MICROBIOLOGY - GENERA L ORDERABLES Final Result [facility] Department [place] [address] * Aerobic culture and gram stain Hardware Lead (07/13/2024 5:34 PM CDT) Direct Specimen Exam Stain: Few polymorphonuclear leukocytes seen. No organisms seen. Report Final Report: No growth [facility] Hardware (Lead) 07/13/2024 5 :34 PM CDT 07/13/2024 6:45 PM CDT Narrative [facility] - 07/18/2024 12:57 PM CDT Atrial lead tip Testing performed by [facility] ([phone]) Specimens submitted from normally sterile body sites [...] MICROBIOLOGY - GENERA L ORDERABLES Final Result [facility] Department [place] [address] * FL Fluoroscopy < 1 Hour (07/13/2024 5:30 PM CDT) [facility]ative [facility] - 07/13/2024 5:31 PM CDT The images from this study are not interpreted by Radiology. ??Please refer to the physician's procedure / OR operative note. us Robin Watkins MD IMG FLUOROSCOPY PROC EDURES Final Result [email or web address] * (ABNORMAL) POC Blood Gas and Chemistries, Arterial - (07/13/2024 5:18 PM CDT) pH, Art POC 7.44 7.35 - 7.45 pCO2, Art POC 41 35 - 45 mmHg [facility] pO2, Art POC 265(H) 83 - 108 mmHg [facility] Na, POC 140 135 - 145 mmol/L [facility] K POC 3.4 3.3 - 4.9 mmol/L [facility] Comment: Interpretive Data Not all point of care methods assess for hemolysis. Confirm with instrument and retest K+ if not consistent with clinical signs and symptoms. Current Interpretive Data was last revised on 2024. Cl, POC 104 97 - 110 mmol/L [facility] Ionized Ca, POC 4.98 4.50 - 5.10 mg/dL [facility] Glucose, POC 82 70 - 199 mg/dL [facility] Lactate, POC 1.2 0.7 - 2.2 mmol/L [facility] SO2 (hugo) arterial 100(H) 90 - 95 % [facility] Base excess, POC 3.3 mmol/L [facility] HCO3, Art POC 28 20 - 30 mmol/L [facility] Hct, POC 33.0(L) 36.3 - 45.3 % [facility] Total Hb, POC 11.1(L) 11.9 - 15.5 g/dL [facility] Blood 07/13/2024 5:18 PM CDT 07/13/2024 5:18 PM CDT us Elvira Cooper MD LAB POCT ORDERABLES - DEV ICE Final Result [facility] Department [place] [address] * Prepare RBC: 2 Units (07/13/2024 4:37 PM CDT) Pathologist [facility] Product code [id number] Unit Number [id number] 7-E [facility] Product Blood Type OPOS [facility] Dispense Status RETURNED [facility] Product code [id number] [facility] Unit Number [id number] 7-K [facility] Product Blood Type OPOS [facility] Dispense Status RETURNED [facility] Blood 07/13/2024 4:37 PM CDT 07/13/2024 4:37 PM CDT Narrative [facility] - 07/13/2024 6:38 PM CDT Are special requirements needed? (All products are leukoreduced and CMV- safe)- >No Date required:-[id number] LRRBC # of [id number] Reasons:-Intra-op transfusion} Jolanta Abdi MD BLOOD BANK PRODUCT ORDERAB LES Final Result Performing Organization Address [facility] de Phone Number [facility] [place] [address] * GT Add-On For OR (07/13/2024 3:38 PM CDT) Narrative [facility] - 07/13/2024 3:38 PM CDT Procedure Auto Finalized by Rule: BW CV GT DURING CASE OR Please see the Anesthesiologist's Procedure Note for the results. Jolanta Abdi MD CV ECHO PROCEDURES Final R esult Performing Organization Address [facility] de Phone Number [facility] * Type and screen (07/13/2024 3:09 PM CDT) ABO Rh O Positive Marguerite, indirect Negative [facility] Blood 07/13/2024 3:09 PM CDT 07/13/2024 3:18 PM CDT Narrative [facility] - 07/13/2024 4:24 PM CDT Has the patient had Daratumumab or Isatuximab in the past 6 months?->Unknown Stepan Love MD LAB BLOOD BANK TEST ORDER DONATO Final Result Performing Organization Address [facility] de Phone Number [facility] Department [place] [address] * POCT glucose (07/13/2024 3:01 PM CDT) Glucose, POC 70 70 - 199 mg/dL Blood 07/13/2024 3:01 PM CDT 07/13/2024 3:01 PM CDT Elvira Cooper MD LAB POCT ORDERABLES - DEV ICE Final Result Performing Organization Address [facility] de Phone Number [facility] [place] [address] * POCT glucose (07/13/2024 11:45 AM CDT) Glucose, POC 108 70 - 199 mg/dL Blood 07/13/2024 11:4 5 AM CDT 07/13/2024 11:45 AM CDT Elvira Cooper MD LAB POCT ORDERABLES - DEV ICE Final Result Performing Organization Address [facility] de Phone Number [facility] [place] [address] * POCT glucose (07/13/2024 8:00 AM CDT) Glucose, POC 144 70 - 199 mg/dL Blood 07/13/2024 8:00 AM CDT 07/13/2024 8:00 AM CDT Result [facility] Elvira Cooper MD LAB POCT ORDERABLES - DEV ICE Final Result Performing Organization Address [facility] de Phone Number [facility] [place] [address] * eGFR (07/13/2024 12:58 AM CDT) eGFR [...] ORDERABLES Ayanna l Result Performing Organization Address City/[facility] Co de Phone Number [facility] Department [place] [address] * (ABNORMAL) aPTT (07/13/2024 12:58 AM CDT) [...] BLOOD ORDERABLES Final Result Performing Organization Address City/[facility]/ZIP Co de Phone Number [facility] Department [place] [address] * (ABNORMAL) Comprehensive metabolic panel (07/13/2024 12:58 AM CDT) Sodium 136 135 - 145 mmol/L Potassium, pl 4.5 3.3 - 4.9 mmol/L [facility] Chloride 96(L) 97 - 110 mmol/L [facility] CO2 29 22 - 32 mmol/L [facility] Anion gap 11 2 - 15 mmol/L [facility] BUN 14 6 - 25 mg/dL [facility] Creatinine 0.81 0.60 - 1.10 mg/dL [facility] Glucose 199 70 - 199 mg/dL [facility] Comment: Interpretive Data Fasting glucose >/= [...] 2022. Calcium 9.6 8.5 - 10.3 mg/dL [facility] Bilirubin, total 0.3 0.1 - 1.2 mg/dL [facility] Protein, pl 7.5 6.5 - 8.5 g/dL [facility] Albumin 3.4(L) 3.5 - 5.0 g/dL [facility] Alk phos 147(H) 40 - 130 Units/L [facility] ALT 9 7 - 45 Units/L [facility] AST 30 10 - 45 Units/L [facility] Blood 07/13/2024 12:5 8 AM CDT 07/13/2024 4:34 AM CDT us Elvira Cooper MD LAB BLOOD ORDERABLES Ayanna vazquez Result [facility] Department [place] [address] * (ABNORMAL) CBC without differential (07/13/2024 12:58 AM CDT) WBC 5.0 3.8 - 9.9 K/cumm Hgb 10.7(L) 11.9 - 15.5 g/dL [facility] Hct 33.9(L) 35.6 - 45.5 % [facility] Plt 280 150 - 400 K/cumm [facility] MPV 10.5 9.1 - 12.3 fL [facility] RBC 3.35(L) 3.90 - 5.20 M/cumm [facility] MCV 101.2(H) 81.3 - 96.4 fL [facility] MCH 31.9 27.1 - 33.3 pg [facility] MCHC 31.6(L) 32.3 - 35.7 g/dL [facility] RDW CV 14.3 11.1 - 14.9 % [facility] RDW SD 53.1(H) 35.7 - 48.1 fL [facility] NRBC abs 0.00 0.00 - 0.01 K/cumm [facility] Blood 07/13/2024 12:5 8 AM CDT 07/13/2024 4:34 AM CDT Elvira Cooper MD LAB BLOOD ORDERABLES Ayanna l Result [facility] Department [place] [address] * (ABNORMAL) POCT glucose (07/12/2024 11:01 PM CDT) Glucose, POC 365(H) 70 - 199 mg/dL Blood 07/12/2024 11:0 1 PM CDT 07/12/2024 11:01 PM CDT Elvira Cooper MD LAB POCT ORDERABLES - DEV ICE Final Result [facility] Department [place] [address] * POCT glucose (07/12/2024 8:13 AM CDT) Glucose, POC 133 70 - 199 mg/dL Blood 07/12/2024 8:13 AM CDT 07/12/2024 8:13 AM CDT us Elvira Cooper MD LAB POCT ORDERABLES - DEV ICE Final Result Performing Organization Address [facility] de Phone Number [facility] Department [place] [address] * (ABNORMAL) aPTT (07/12/2024 4:17 AM CDT) aPTT 133(H) 28 - 38 sec Comment: No clot detected in sample Repeated and verified - [id number] - 07/12/24, 5:57 AM Interpretive Data Heparin therapeutic range: 66.0 - 100.0 seconds. Range based on correlation with therapeutic heparin activity range of 0.3 - 0.7 Units/mL. Current interpretive data was last revised on 2023. Blood 07/12/2024 4:17 AM CDT 07/12/2024 5:30 AM CDT Narrative [facility] - 07/12/2024 5:57 AM CDT STAT [...] ORDERABLES Ayanna l Result Performing Organization Address City/[facility]/ZIP Co de Phone Number [facility] Department [place] [address] * Magnesium (07/11/2024 9:19 PM CDT) [facility] Magnesium 1.8 1.4 - 2.5 mg/dL Blood 07/11/2024 9:19 PM CDT 07/11/2024 9:48 PM CDT us Lynn Martinez MD LAB BLOOD ORDERABLES Fin al Result Performing Organization Address [facility] Co de Phone Number [facility] Department [place] [address] * eGFR (07/11/2024 9:19 PM CDT) [facility] eGFR 70 >=60 mL/min/1. 73 m2 Comment: [...] ORDERABLES Ayanna l Result Performing Organization Address [facility] Co de Phone Number [facility] Department [place] [address] * (ABNORMAL) aPTT (07/11/2024 9:19 PM CDT) [facility] aPTT 51(H) 28 - 38 sec Comment: Interpretive Data Heparin therapeutic range: 66.0 - 100.0 seconds. Range based on correlation with therapeutic heparin activity range of 0.3 - 0.7 Units/mL. Current interpretive data was last revised on 2023. Blood 07/11/2024 9:19 PM CDT 07/11/2024 9:56 PM CDT Narrative [facility] - 07/11/2024 10:06 PM CDT STAT [...] ORDERABLES Ayanna l Result Performing Organization Address [facility] Co de Phone Number [facility] Department [place] [address] * (ABNORMAL) Comprehensive metabolic panel (07/11/2024 9:19 PM CDT) Sodium 136 135 - 145 mmol/L Potassium, pl 3.9 3.3 - 4.9 mmol/L [facility] Chloride 100 97 - 110 mmol/L [facility] CO2 27 22 - 32 mmol/L [facility] Anion gap 9 2 - 15 mmol/L [facility] BUN 15 6 - 25 mg/dL [facility] Creatinine 0.92 0.60 - 1.10 mg/dL [facility] Glucose 124 70 - 199 mg/dL [facility] Comment: Interpretive Data Fasting glucose >/= [...] 2022. Calcium 9.1 8.5 - 10.3 mg/dL [facility] Bilirubin, total 0.3 0.1 - 1.2 mg/dL [facility] Protein, pl 7.2 6.5 - 8.5 g/dL [facility] Albumin 3.2(L) 3.5 - 5.0 g/dL [facility] Alk phos 155(H) 40 - 130 Units/L [facility] ALT 10 7 - 45 Units/L [facility] AST 24 10 - 45 Units/L [facility] Blood 07/11/2024 9:19 PM CDT 07/11/2024 9:48 PM CDT us Elvira Cooper MD LAB BLOOD ORDERABLES Ayanna vazquez Result [facility] Department [place] [address] * (ABNORMAL) CBC without differential (07/11/2024 9:19 PM CDT) Pathologist [facility] WBC 4.7 3.8 - 9.9 K/cumm Hgb 10.3(L) 11.9 - 15.5 g/dL [facility] Hct 33.1(L) 35.6 - 45.5 % [facility] Plt 255 150 - 400 K/cumm [facility] MPV 9.5 9.1 - 12.3 fL [facility] RBC 3.20(L) 3.90 - 5.20 M/cumm [facility] MCV 103.4(H) 81.3 - 96.4 fL [facility] MCH 32.2 27.1 - 33.3 pg [facility] MCHC 31.1(L) 32.3 - 35.7 g/dL [facility] RDW CV 14.3 11.1 - 14.9 % [facility] RDW SD 54.3(H) 35.7 - 48.1 fL [facility] NRBC abs 0.00 0.00 - 0.01 K/cumm [facility] Blood 07/11/2024 9:19 PM CDT 07/11/2024 9:48 PM CDT Elvira Cooper MD LAB BLOOD ORDERABLES Ayanan l Result [facility] Department [place] [address] * POCT glucose (07/11/2024 8:31 PM CDT) Glucose, POC 181 70 - 199 mg/dL Blood 07/11/2024 8:31 PM CDT 07/11/2024 8:31 PM CDT Elvira Cooper MD LAB POCT ORDERABLES - DEV ICE Final Result [facility] Department [place] [address] * (ABNORMAL) POCT glucose (07/11/2024 5:14 PM CDT) Glucose, POC 209(H) 70 - 199 mg/dL Blood 07/11/2024 5:14 PM CDT 07/11/2024 5:14 PM CDT us Elvira Cooper MD LAB POCT ORDERABLES - DEV ICE Final Result [facility] Department [place] [address] * XR Chest PA Lateral 2 Views [...] ORDERABLES - DEV ICE Final Result [facility] Department of Laboratories [place], [place] [id number] * (ABNORMAL) POCT glucose (07/11/2024 7:27 AM CDT) Glucose, POC 238(H) 70 - 199 mg/dL Blood 07/11/2024 7:27 AM CDT 07/11/2024 7:27 AM CDT Elvira Cooper MD LAB POCT ORDERABLES - DEV ICE Final Result Performing Organization Address [facility] Co de Phone Number [facility] [place] [address] * Magnesium (07/10/2024 11:24 PM CDT) Pathologist [facility] Magnesium 1.9 1.4 - 2.5 mg/dL Blood 07/10/2024 11:2 4 PM CDT 07/11/2024 12:11 AM CDT Elvira Cooper MD LAB BLOOD ORDERABLES Ayanna l Result Performing Organization Address [facility] de Phone Number [facility] Department [place] [address] * eGFR (07/10/2024 11:24 PM CDT) eGFR [...] ORDERABLES Ayanna l Result Performing Organization Address [facility] Co de Phone Number [facility] [place] [address] * (ABNORMAL) aPTT (07/10/2024 11:24 PM CDT) aPTT 84(H) 28 - 38 sec Comment: Interpretive Data Heparin therapeutic range: 66.0 - 100.0 seconds. Range based on correlation with therapeutic heparin activity range of 0.3 - 0.7 Units/mL. Current interpretive data was last revised on 2023. Blood 07/10/2024 11:2 4 PM CDT 07/10/2024 11:54 PM CDT Result [facility] Elvira Cooper MD LAB BLOOD ORDERABLES Ayanna l Result Performing Organization Address [facility] de Phone Number [facility] [place] [address] * (ABNORMAL) Comprehensive metabolic panel (07/10/2024 11:24 PM CDT) Sodium 134(L) 135 - 145 mmol/L Potassium, pl 4.7 3.3 - 4.9 mmol/L [facility] Chloride 99 97 - 110 mmol/L [facility] CO2 26 22 - 32 mmol/L [facility] Anion gap 9 2 - 15 mmol/L [facility] BUN 19 6 - 25 mg/dL [facility] Creatinine 0.94 0.60 - 1.10 mg/dL [facility] Glucose 351(H) 70 - 199 mg/dL [facility] Comment: Interpretive Data Fasting glucose >/= [...] 2022. Calcium 9.4 8.5 - 10.3 mg/dL [facility] Bilirubin, total 0.4 0.1 - 1.2 mg/dL [facility] Protein, pl 8.0 6.5 - 8.5 g/dL [facility] Albumin 3.6 3.5 - 5.0 g/dL [facility] Alk phos 176(H) 40 - 130 Units/L [facility] ALT 8 7 - 45 Units/L [facility] AST 28 10 - 45 Units/L [facility] Blood 07/10/2024 11:2 4 PM CDT 07/11/2024 12:11 AM CDT us Elvira Cooper MD LAB BLOOD ORDERABLES Ayanna l Result [facility] Department [place] [address] * (ABNORMAL) CBC without differential (07/10/2024 11:24 PM CDT) Pathologist [facility] WBC 5.9 3.8 - 9.9 K/cumm Hgb 11.3(L) 11.9 - 15.5 g/dL [facility] Hct 35.8 35.6 - 45.5 % [facility] Plt 352 150 - 400 K/cumm [facility] MPV 9.5 9.1 - 12.3 fL [facility] RBC 3.53(L) 3.90 - 5.20 M/cumm [facility] MCV 101.4(H) 81.3 - 96.4 fL [facility] MCH 32.0 27.1 - 33.3 pg [facility] MCHC 31.6(L) 32.3 - 35.7 g/dL [facility] RDW CV 14.6 11.1 - 14.9 % [facility] RDW SD 53.9(H) 35.7 - 48.1 fL [facility] NRBC abs 0.00 0.00 - 0.01 K/cumm [facility] Blood 07/10/2024 11:2 4 PM CDT 07/11/2024 12:10 AM CDT us Elvira Cooper MD LAB BLOOD ORDERABLES Ayanna vazquez Result [facility] Department [place] [address] * (ABNORMAL) aPTT (07/10/2024 4:59 PM CDT) aPTT 92(H) 28 - 38 sec Comment: Interpretive Data Heparin therapeutic range: 66.0 - 100.0 seconds. Range based on correlation with therapeutic heparin activity range of 0.3 - 0.7 Units/mL. Current interpretive data was last revised on 2023. Blood 07/10/2024 4:59 PM CDT 07/10/2024 5:30 PM CDT Narrative [facility] - 07/10/2024 5:38 PM CDT STAT [...] ORDERABLES Ayanna l Result Performing Organization Address City/[facility] Co de Phone Number [facility] [place] [address] * (ABNORMAL) POCT glucose (07/10/2024 4:53 PM CDT) Glucose, POC 290(H) 70 - 199 mg/dL Blood 07/10/2024 4:53 PM CDT 07/10/2024 4:53 PM CDT Elvira Cooper MD LAB POCT ORDERABLES - DEV ICE Final Result Performing Organization Address [facility] de Phone Number [facility] Department [place] [address] * Lipid panel (07/10/2024 2:21 PM CDT) Pathologist [facility] Cholesterol 180 30 - 199 mg/dL Comment: [...] 2018. Triglycerides See Comment <=149 mg/dL [facility] Comment: Credited; Hemolyzed Specimen Interpretive Data Ages [...] revised on 2018. HDL 49 >=40 mg/dL [facility] Comment: Interpretive Data Ages < or [...] 2018. LDL, calculated See Comment <=129 [facility] Comment: Unable to calculate Interpretive Data [...] revised on 2024. Non-HDL Cholesterol 131 mg/dL [facility] Comment: Interpretive Data Ages < or [...] last revised on 2018. Chol/HDL ratio 4 [facility] Blood 07/10/2024 2:21 PM CDT 07/10/2024 3:26 PM CDT us Elvira Cooper MD LAB BLOOD ORDERABLES Edit ed Result - Final [facility] Department [place] [address] * (ABNORMAL) POCT glucose (07/10/2024 2:15 PM CDT) Glucose, POC 210(H) 70 - 199 mg/dL Blood 07/10/2024 2:15 PM CDT 07/10/2024 2:15 PM CDT us Elvira Cooper MD LAB POCT ORDERABLES - DEV ICE Final Result [facility] Department [place] [address] * TRANSESOPHAGEAL ECHO (GT) W DOPPLER/CF WO CONTRAST (07/10/2024 12:29 PM CDT) Anatomical Region Laterality Modality Echocardiography 07/10/2024 10:0 0 AM CDT Narrative 07/10/2024 12:46 PM CDT Patient name: Lei Rodriguez Date of test: 07/10/2024 Date of : 1960 () [facility] #: 0 ?Location: [facility] Cardiac Diagnostic Lab Interpreted by: Da Ayala MD Pick Out Hand: Emily King MD RN: Reason for Test: [...] 3=Akinetic 4=Dyskin. 5=Aneurysm 0=Not visualized) Short Saint Johns-Gastric:=2 S=2 I=2 P=2 L=2 A=2 Long [place] Johns-Gastric:BP=2 BA=2 MP=2 MA=2 AP=2 AA=2 Chamber Dimensions: RA: increased LA: increased, 5 cm RV: Normal LV: mildly dilated LV function: Moderate global left ventricular dysfunction. RV function: Normal Pericardium: No pericardial effusion seen Diastolic function: not assessed Atrial Septum: Normal Wall Thickness: RV: Normal LV: Normal Sedation/Tolerance: ??Sedation: GT performed with monitored anesthesia care ??nGAP Admin: ?propofol 490 mg ??Tolerance: Patient tolerated [...] - 12:46:57 by Da Ayala MD ?? Car Shunter: Emily King By signing this report, the attending coning machine operator certifies that he or she has personally supervised and interpreted the echocardiogram and has reviewed and or edited and agrees with the written comments contained within the report. Procedure Note Da Ayala MD - 07/10/2024 Patient name: Lei Rodriguez Date of test: 07/10/2024 Date of : 1960 (F) Hospital #: 0 Location: [facility] Cardiac Diagnostic Lab Interpreted by: Da Ayala MD Pick Out Hand: Emily King MD RN: Reason for Test: [...] 3=Akinetic 4=Dyskin. 5=Aneurysm 0=Not visualized) Short Saint Johns-Gastric:=2 S=2 I=2 P=2 L=2 A=2 Long [place] Johns-Gastric:BP=2 BA=2 MP=2 MA=2 AP=2 AA=2 Chamber Dimensions: [...] 07/10/2024 - 12:46:57 by Da Ayala MD Car Shunter: Emily King By signing this report, the attending coning machine operator certifies that he or she has personally [...] DEV ICE Final Result Performing Organization Address [facility]/ZIP Co de Phone Number [facility] [place] [address] * POCT glucose (07/10/2024 7:45 AM CDT) Glucose, POC 144 70 - 199 mg/dL Blood 07/10/2024 7:45 AM CDT 07/10/2024 7:45 AM CDT Elvira Cooper MD LAB POCT ORDERABLES - DEV ICE Final Result Performing Organization Address [facility] Co de Phone Number [facility] [place] [address] * (ABNORMAL) aPTT (07/10/2024 6:43 AM CDT) aPTT 119(H) 28 - 38 sec Comment: Interpretive Data Heparin therapeutic range: 66.0 - 100.0 seconds. Range based on correlation with therapeutic heparin activity range of 0.3 - 0.7 Units/mL. Current interpretive data was last revised on 2023. Blood 07/10/2024 6:43 AM CDT 07/10/2024 7:21 AM CDT Narrative [facility] - 07/10/2024 7:53 AM CDT STAT [...] LAB BLOOD ORDERABLES Ayanna vazquez Result [facility] Department [place] [address] * (ABNORMAL) Lipid panel (07/09/2024 11:48 PM CDT) [facility] Cholesterol 144 30 - 199 mg/dL Comment: [...] on 2018. Triglycerides 153(H) <=149 mg/dL [facility] Comment: Interpretive Data Ages [...] on 2018. HDL 40 >=40 mg/dL [facility] Comment: Interpretive Data Ages < or [...] 2018. LDL, calculated 77 <=129 mg/dL [facility] Comment: Interpretive Data Ages < or [...] 3. Lenin Urbina et al. CRISTINA Cardiol. 2019February 07;5(5):540-548. doi: [email or web address].2020.0013 Current Interpretive Data was last revised on 2024. Non-HDL Cholesterol 104 mg/dL [facility] Comment: Interpretive Data Ages < or [...] last revised on 2018. Chol/HDL ratio 4 [facility] Blood 07/09/2024 11:4 8 PM CDT 07/10/2024 12:15 AM CDT us Elvira Cooper MD LAB BLOOD ORDERABLES Ayanna vazquez Result [facility] [place] [address] * eGFR (07/09/2024 11:48 PM CDT) eGFR [...] 8 PM CDT 07/10/2024 12:15 AM CDT Result [facility] Elvira Cooper MD LAB BLOOD ORDERABLES Ayanna vazquez Result [facility] Department [place] [address] * (ABNORMAL) aPTT (07/09/2024 11:48 PM CDT) [...] MD LAB BLOOD ORDERABLES Ayanna vazquez Result [facility] Department [place] [address] * (ABNORMAL) Comprehensive metabolic panel (07/09/2024 11:48 PM CDT) Sodium 136 135 - 145 mmol/L Potassium, pl 3.5 3.3 - 4.9 mmol/L [facility] Chloride 99 97 - 110 mmol/L [facility] CO2 33(H) 22 - 32 mmol/L [facility] Anion gap 4 2 - 15 mmol/L [facility] BUN 16 6 - 25 mg/dL [facility] Creatinine 1.04 0.60 - 1.10 mg/dL [facility] Glucose 156 70 - 199 mg/dL [facility] Comment: Interpretive Data Fasting glucose >/= [...] Calcium 9.1 8.5 - 10.3 mg/dL [facility] Bilirubin, total 0.4 0.1 - 1.2 mg/dL [facility] Protein, pl 7.2 6.5 - 8.5 g/dL [facility] Albumin 3.3(L) 3.5 - 5.0 g/dL [facility] Alk phos 162(H) 40 - 130 Units/L [facility] ALT 6(L) 7 - 45 Units/L [facility] AST 26 10 - 45 Units/L [facility] Blood 07/09/2024 11:4 8 PM CDT 07/10/2024 12:15 AM CDT Elvira Cooper MD LAB BLOOD ORDERABLES Ayanna l Result Performing Organization Address [facility] Co de Phone Number [facility] Department [place] [address] * (ABNORMAL) CBC without differential (07/09/2024 11:48 PM CDT) WBC 7.6 3.8 - 9.9 K/cumm Hgb 10.8(L) 11.9 - 15.5 g/dL [facility] Hct 33.4(L) 35.6 - 45.5 % [facility] Plt 333 150 - 400 K/cumm [facility] MPV 9.8 9.1 - 12.3 fL [facility] RBC 3.30(L) 3.90 - 5.20 M/cumm [facility] MCV 101.2(H) 81.3 - 96.4 fL [facility] MCH 32.7 27.1 - 33.3 pg [facility] MCHC 32.3 32.3 - 35.7 g/dL [facility] RDW CV 14.2 11.1 - 14.9 % [facility] RDW SD 52.9(H) 35.7 - 48.1 fL [facility] NRBC abs 0.00 0.00 - 0.01 K/cumm [facility] Blood 07/09/2024 11:4 8 PM CDT 07/10/2024 12:15 AM CDT Elvira Cooper MD LAB BLOOD ORDERABLES Ayanna l Result Performing Organization Address City/[facility]/ZIP Co de Phone Number [facility] Department [place] [address] * POCT glucose (07/09/2024 10:46 PM CDT) Glucose, POC 197 70 - 199 mg/dL Blood 07/09/2024 10:4 6 PM CDT 07/09/2024 10:46 PM CDT Elvira Cooper MD LAB POCT ORDERABLES - DEV ICE Final Result Performing Organization Address [facility] Co de Phone Number [facility] [place] [address] * (ABNORMAL) POCT glucose (07/09/2024 8:33 PM CDT) Glucose, POC 291(H) 70 - 199 mg/dL Blood 07/09/2024 8:33 PM CDT 07/09/2024 8:33 PM CDT Elvira Cooper MD LAB POCT ORDERABLES - DEV ICE Final Result Performing Organization Address [facility] Co de Phone Number [facility] [place] [address] * (ABNORMAL) POCT glucose (07/09/2024 4:45 PM CDT) Glucose, POC 296(H) 70 - 199 mg/dL Blood 07/09/2024 4:45 PM CDT 07/09/2024 4:45 PM CDT Elvira Cooper MD LAB POCT ORDERABLES - DEV ICE Final Result Performing Organization Address [facility] Co de Phone Number [facility] Department [place] [address] * (ABNORMAL) aPTT (07/09/2024 4:27 PM CDT) aPTT 70(H) 28 - 38 sec Comment: Code Blue specimen - results called to Vinicius CORDERO) on 07/09/2024 17:05:59 CDT by KG. Interpretive Data Heparin therapeutic range: 66.0 - 100.0 seconds. Range based on correlation with therapeutic heparin activity range of 0.3 - 0.7 Units/mL. Current interpretive data was last revised on 2023. Blood 07/09/2024 4:27 PM CDT 07/09/2024 4:46 PM CDT Elvira Cooper MD LAB BLOOD ORDERABLES Ayanna l Result Performing Organization Address [facility] Co de Phone Number [facility] [place] [address] * POCT glucose (07/09/2024 11:36 AM CDT) Glucose, POC 195 70 - 199 mg/dL Blood 07/09/2024 11:3 6 AM CDT 07/09/2024 11:36 AM CDT Elvira Cooper MD LAB POCT ORDERABLES - DEV ICE Final Result Performing Organization Address [facility] de Phone Number [facility] [place] [address] * POCT glucose (07/09/2024 7:56 AM CDT) Glucose, POC 167 70 - 199 mg/dL Blood 07/09/2024 7:56 AM CDT 07/09/2024 7:56 AM CDT Elvira Cooper MD LAB POCT ORDERABLES - DEV ICE Final Result Performing Organization Address [facility] de Phone Number [facility] [place] [address] * Potassium, whole blood (07/09/2024 7:11 AM CDT) Potassium, bld 3.7 3.3 - 4.9 mmol/L Blood 07/09/2024 7:11 AM CDT 07/09/2024 7:43 AM CDT Elvira Cooper MD LAB BLOOD ORDERABLES Ayanna l Result Performing Organization Address [facility] Co de Phone Number [facility] [place] [address] * (ABNORMAL) aPTT (07/09/2024 4:59 AM CDT) aPTT 64(H) 28 - 38 sec Comment: Interpretive Data Heparin therapeutic range: 66.0 - 100.0 seconds. Range based on correlation with therapeutic heparin activity range of 0.3 - 0.7 Units/mL. Current interpretive data was last revised on 2023. Blood 07/09/2024 4:59 AM CDT 07/09/2024 5:43 AM CDT Narrative [facility] - 07/09/2024 6:09 AM CDT STAT [...] ORDERABLES Ayanna l Result Performing Organization Address [facility]/ZIP Co de Phone Number [facility] [place] [address] * HIV 1/2 Antibody plus p24 Antigen [...] - GENERA L ORDERABLES Final Result [facility] Department [place] [address] * eGFR (07/08/2024 9:48 PM CDT) eGFR 73 >=60 mL/min/1. 73 [...] ORDERABLES Ayanna l Result Performing Organization Address [facility] Co de Phone Number [facility] Department [place] [address] * (ABNORMAL) aPTT (07/08/2024 9:48 PM CDT) [...] ORDERABLES Ayanna l Result Performing Organization Address [facility] de Phone Number [facility] Department [place] [address] * (ABNORMAL) Comprehensive metabolic panel (07/08/2024 9:48 PM CDT) [facility] Sodium 135 135 - 145 mmol/L Potassium, pl 4.4 3.3 - 4.9 mmol/L [facility] Comment:Hemolyzed; Potassium value may be falsely elevated by as much as 0.6-1.0 mmol/L. Suggest redraw and reanalysis. Chloride 100 97 - 110 mmol/L [facility] CO2 27 22 - 32 mmol/L [facility] Anion gap 8 2 - 15 mmol/L [facility] BUN 18 6 - 25 mg/dL [facility] Creatinine 0.89 0.60 - 1.10 mg/dL [facility] Glucose 186 70 - 199 mg/dL [facility] Comment: Interpretive Data Fasting glucose >/= [...] 2022. Calcium 9.2 8.5 - 10.3 mg/dL [facility] Bilirubin, total 0.3 0.1 - 1.2 mg/dL [facility] Protein, pl 7.2 6.5 - 8.5 g/dL [facility] Albumin 3.1(L) 3.5 - 5.0 g/dL [facility] Alk phos 171(H) 40 - 130 Units/L [facility] ALT 11 7 - 45 Units/L [facility] AST 35 10 - 45 Units/L [facility] Comment:Hemolyzed; result ma y be falsely elevated Blood 07/08/2024 9:48 PM CDT 07/08/2024 10:18 PM CDT us Elvira Cooper MD LAB BLOOD ORDERABLES Ayanna vazquez Result [facility] Department [place] [address] * (ABNORMAL) CBC without differential (07/08/2024 9:48 PM CDT) Pathologist [facility] WBC 6.1 3.8 - 9.9 K/cumm Hgb 10.8(L) 11.9 - 15.5 g/dL [facility] Hct 33.9(L) 35.6 - 45.5 % [facility] Plt 328 150 - 400 K/cumm [facility] MPV 10.4 9.1 - 12.3 fL [facility] RBC 3.40(L) 3.90 - 5.20 M/cumm [facility] MCV 99.7(H) 81.3 - 96.4 fL [facility] MCH 31.8 27.1 - 33.3 pg [facility] MCHC 31.9(L) 32.3 - 35.7 g/dL [facility] RDW CV 14.1 11.1 - 14.9 % [facility] RDW SD 51.6(H) 35.7 - 48.1 fL [facility] NRBC abs 0.00 0.00 - 0.01 K/cumm [facility] Blood 07/08/2024 9:48 PM CDT 07/08/2024 10:18 PM CDT Elvira Cooper MD LAB BLOOD ORDERABLES Ayanna l Result Performing Organization Address City/[facility]/ZIP Co de Phone Number [facility] [place] [address] * POCT glucose (07/08/2024 8:16 PM CDT) Glucose, POC 190 70 - 199 mg/dL Blood 07/08/2024 8:16 PM CDT 07/08/2024 8:16 PM CDT Elvira Cooper MD LAB POCT ORDERABLES - DEV ICE Final Result Performing Organization Address City/[facility]/ZIP Co de Phone Number [facility] [place] [address] * POCT glucose (07/08/2024 3:44 PM CDT) Glucose, POC 195 70 - 199 mg/dL Blood 07/08/2024 3:44 PM CDT 07/08/2024 3:44 PM CDT Elvira Cooper MD LAB POCT ORDERABLES - DEV ICE Final Result [facility] [place] [address] * Critical Result Callback Hematology (07/08/2024 12:54 PM CDT) Date Notified [id number] Time Notified 1431 [facility] TestName aPTT [facility] Called/Read Back Naa [facility] Credentials RN [facility] Called By john [facility] Blood 07/08/2024 12:5 4 PM CDT 07/08/2024 1:17 PM CDT us Elvira Cooper MD LAB BLOOD ORDERABLES Ayanna l Result [facility] Department [place] [address] * (ABNORMAL) aPTT (07/08/2024 12:54 PM CDT) aPTT >150(C) 28 - 38 sec Comment: Repeated and verified. Interpretive Data Heparin therapeutic range: 66.0 - 100.0 seconds. Range based on correlation with therapeutic heparin activity range of 0.3 - 0.7 Units/mL. Current interpretive data was last revised on 2023. Blood 07/08/2024 12:5 4 PM CDT 07/08/2024 1:17 PM CDT Narrative [facility] - 07/08/2024 2:30 PM CDT STAT PTT [...] ORDERABLES Ayanna l Result Performing Organization Address City/[facility] Co de Phone Number [facility] [place] [address] * (ABNORMAL) POCT glucose (07/08/2024 11:03 AM CDT) Glucose, POC 271(H) 70 - 199 mg/dL Blood 07/08/2024 11:0 3 AM CDT 07/08/2024 11:03 AM CDT Elvira Cooper MD LAB POCT ORDERABLES - DEV ICE Final Result Performing Organization Address [facility] Co de Phone Number [facility] [place] [address] * POCT glucose (07/08/2024 7:40 AM CDT) Glucose, POC 170 70 - 199 mg/dL Blood 07/08/2024 7:40 AM CDT 07/08/2024 7:40 AM CDT Elvira Cooper MD LAB POCT ORDERABLES - DEV ICE Final Result Performing Organization Address [facility] de Phone Number [facility] [place] [address] * (ABNORMAL) aPTT (07/08/2024 4:53 AM CDT) aPTT 48(H) 28 - 38 sec Comment: Interpretive Data Heparin therapeutic range: 66.0 - 100.0 seconds. Range based on correlation with therapeutic heparin activity range of 0.3 - 0.7 Units/mL. Current interpretive data was last revised on 2023. Blood 07/08/2024 4:53 AM CDT 07/08/2024 5:27 AM CDT Narrative [facility] - 07/08/2024 5:38 AM CDT STAT [...] LAB BLOOD ORDERABLES Ayanna vazquez Result [facility] Department [place] [address] * eGFR (07/07/2024 9:34 PM CDT) [facility] eGFR 67 >=60 mL/min/1. 73 m2 Comment: [...] ORDERABLES Ayanna l Result Performing Organization Address [facility] Co de Phone Number [facility] Department [place] [address] * (ABNORMAL) aPTT (07/07/2024 9:34 PM CDT) [...] ORDERABLES Ayanna l Result Performing Organization Address [facility] de Phone Number [facility] Department [place] [address] * (ABNORMAL) Comprehensive metabolic panel (07/07/2024 9:34 PM CDT) Pathologist [facility] Sodium 136 135 - 145 mmol/L Potassium, pl 4.2 3.3 - 4.9 mmol/L [facility] Comment:Hemolyzed; Potassium value may be falsely elevated by as much as 0.6-1.0 mmol/L. Suggest redraw and reanalysis. Chloride 96(L) 97 - 110 mmol/L [facility] CO2 29 22 - 32 mmol/L [facility] Anion gap 11 2 - 15 mmol/L [facility] BUN 17 6 - 25 mg/dL [facility] Creatinine 0.96 0.60 - 1.10 mg/dL [facility] Glucose 186 70 - 199 mg/dL [facility] Comment: Interpretive Data Fasting glucose >/= [...] 2022. Calcium 8.8 8.5 - 10.3 mg/dL [facility] Bilirubin, total 0.3 0.1 - 1.2 mg/dL [facility] Protein, pl 6.7 6.5 - 8.5 g/dL [facility] Albumin 3.0(L) 3.5 - 5.0 g/dL [facility] Alk phos 174(H) 40 - 130 Units/L [facility] ALT 15 7 - 45 Units/L [facility] AST 42 10 - 45 Units/L [facility] Comment:Hemolyzed; result ma y be falsely elevated Blood 07/07/2024 9:34 PM CDT 07/07/2024 10:26 PM CDT us Elvira Cooper MD LAB BLOOD ORDERABLES Ayanna vazquez Result [facility] Department [place] [address] * (ABNORMAL) CBC without differential (07/07/2024 9:34 PM CDT) WBC 6.1 3.8 - 9.9 K/cumm Hgb 9.9(L) 11.9 - 15.5 g/dL [facility] Hct 30.4(L) 35.6 - 45.5 % [facility] Plt 310 150 - 400 K/cumm [facility] MPV 10.4 9.1 - 12.3 fL [facility] RBC 3.05(L) 3.90 - 5.20 M/cumm [facility] MCV 99.7(H) 81.3 - 96.4 fL [facility] MCH 32.5 27.1 - 33.3 pg [facility] MCHC 32.6 32.3 - 35.7 g/dL [facility] RDW CV 14.1 11.1 - 14.9 % [facility] RDW SD 51.0(H) 35.7 - 48.1 fL [facility] NRBC abs 0.00 0.00 - 0.01 K/cumm [facility] Blood 07/07/2024 9:34 PM CDT 07/07/2024 10:25 PM CDT Elvira Cooper MD LAB BLOOD ORDERABLES Ayanna l Result Performing Organization Address City/[facility]/ZIP Co de Phone Number [facility] Department [place] [address] * (ABNORMAL) POCT glucose (07/07/2024 9:19 PM CDT) Glucose, POC 211(H) 70 - 199 mg/dL Blood 07/07/2024 9:19 PM CDT 07/07/2024 9:19 PM CDT Result [facility] Elvira Cooper MD LAB POCT ORDERABLES - DEV ICE Final Result [facility] [place] [address] * POCT glucose (07/07/2024 4:49 PM CDT) Glucose, POC 191 70 - 199 mg/dL Blood 07/07/2024 4:49 PM CDT 07/07/2024 4:49 PM CDT Elvira Cooper MD LAB POCT ORDERABLES - DEV ICE Final Result [facility] Department [place] [address] * TRANSTHORACIC ECHO (TTE) COMPLETE W DOPPLER/CF W CONTRAST (07/07/2024 2:23 PM CDT) LV EF 30 % CARDIOREPORT Anatomical Region Laterality Modality Ultrasound 07/07/2024 1:00 PM CDT Narrative 07/07/2024 3:43 PM CDT Patient name: Lei Rodriguez Date of test: 07/07/2024 Type of test: TTE w/Doppler Hospital #: 0 Date of : 1960 (F) Pick Out Hand: Linda Caputo RDCS Referring Physician: ELVIRA COOPER MD Contrast Agent: 0.45 ml Definity Administered, (1.05 ml wasted). Contrast Administered by: Hailee Burroughs RN Supervised/Interpreted by: Nikko Greenwood MD. Diagnosis: Location: [facility] Reason for test: c/f vegetation on pacer [...] 2=Hypo 3=Akinetic 4=Dyskin./Aneurysm 0=Not visualized) Parasternal Long [place] Johns:MAS=2 BAS=2 MIL=2 HECTOR=2 Parasternal Short [place] Johns:MAS=2 MIS=2 OR=2 MIL=2 MAL=2 MA=2 Apical 4 Chambers:=2 MIS=2 BIS=2 BAL=2 MAL=2 AL=2 AC=2 Apical 2 Chambers:AI=2 OR=2 BI=2 BA=2 MA=2 AA=2 AC=2 LV Global Longitudinal Strain: RV Global Longitudinal Strain: LV Function: Moderate Global reduction in LV Ejection Fraction (EF=30-40%); EF via modified Marsh's. RV Function: Normal Septal Motion: Normal Pericardial Effusion: small Atrial Septum: Normal DOPPLER/COLOR FLOW DOPPLER RESULTS: Diastolic Function: indeterminate Tricuspid Valve: mild TV regurgitation Pulmonic Valve: mild DC AV Regurgitation: Mild AR AV Stenosis: no AV Area: ??cm2 AV Pressure Gradient (mmHg): Mean: 0, Peak:0 MV Regurgitation: Mild MR MV Stenosis: no MS MV Area: ??cm2 MV Pressure Gradient (mmHg): Mean: 0 MV ERO: ??cm Regurg. Vol.: ??ml/beat Regurg. Frac.: ??% PA Pressure: 28 mmHg DOPPLER/COLOR FOLOW DOPPLER COMMENTS: Mild AR, Mild MR, no , no MS, mild TV regurgitation, mild DC. Diastolic function: indeterminate CONTRAST: 0.45 ml Definity [...] MD. By signing this report, the attending coning machine operator certifies that he or she has personally supervised and interpreted the echocardiogram and has reviewed and or edited and agrees with the written comments contained within the report. Procedure Note Nikko Greenwood MD - 07/07/2024 Patient name: Lei Rodriguez Date of test: 07/07/2024 Type of test: TTE w/[facility] #: 0 Date of : 1960 (F) Pick Out Hand: Linda Caputo [facility] Referring Physician: ELVIRA COOPER MD Contrast Agent: 0.45 ml Definity Administered, (1.05 ml wasted). Contrast Administered by: Hailee Burroughs RN Supervised/Interpreted by: Nikko Greenwood MD. Diagnosis: Location: [facility] Reason for test: c/f vegetation on pacer [...] 2=Hypo 3=Akinetic 4=Dyskin./Aneurysm 0=Not visualized) Parasternal [place]:MAS=2 BAS=2 MIL=2 HECTOR=2 Parasternal [place]:MAS=2 MIS=2 OR=2 MIL=2 MAL=2 MA=2 Apical 4 Chambers:=2 MIS=2 BIS=2 BAL=2 MAL=2 AL=2 AC=2 Apical 2 Chambers:AI=2 OR=2 BI=2 BA=2 MA=2 AA=2 AC=2 LV Global Longitudinal Strain: RV Global Longitudinal Strain: LV Function: Moderate Global reduction in LV Ejection Fraction (EF=30-40%); EF via modified Marsh's. RV Function: Normal Septal Motion: Normal Pericardial Effusion: small Atrial Septum: Normal DOPPLER/COLOR FLOW DOPPLER RESULTS: Diastolic Function: indeterminate Tricuspid Valve: mild TV regurgitation Pulmonic Valve: mild DC AV Regurgitation: Mild AR AV Stenosis: no AV Area: cm2 AV Pressure Gradient (mmHg): Mean: 0, Peak:0 MV Regurgitation: Mild MR MV Stenosis: no MS MV Area: cm2 MV Pressure Gradient (mmHg): Mean: 0 MV ERO: cm Regurg. Vol.: ml/beat Regurg. Frac.: % PA Pressure: 28 mmHg DOPPLER/COLOR FOLOW DOPPLER COMMENTS: Mild AR, Mild MR, no , no MS, mild TV regurgitation, mild DC. Diastolic function: indeterminate CONTRAST: 0.45 ml Definity [...] MD. By signing this report, the attending coning machine operator certifies that he or she has personally [...] 7 PM CDT 07/07/2024 1:14 PM CDT Narrative [facility] - 07/07/2024 1:41 PM CDT STAT [...] ORDERABLES Ayanna l Result Performing Organization Address City/[facility]/ZIP Co de Phone Number [facility] [place] [address] * (ABNORMAL) POCT glucose (07/07/2024 12:33 PM CDT) Pathologist [facility] Glucose, POC 272(H) 70 - 199 mg/dL Blood 07/07/2024 12:3 3 PM CDT 07/07/2024 12:33 PM CDT Elvira Cooper MD LAB POCT ORDERABLES - DEV ICE Final Result Performing Organization Address City/[facility]/ZIP Co de Phone Number [facility] Department [place] [address] * (ABNORMAL) POCT glucose (07/07/2024 7:23 AM CDT) Glucose, POC 215(H) 70 - 199 mg/dL Blood 07/07/2024 7:23 AM CDT 07/07/2024 7:23 AM CDT us Elvira Cooper MD LAB POCT ORDERABLES - DEV ICE Final Result [facility] Department [place] [address] * US Outside Consult (07/07/2024 7:10 AM CDT) Anatomical Region Laterality Modality Ultrasound 07/07/2024 8:00 AM CDT Impressions 07/07/2024 8:00 AM CDT 1. ??No hydronephrosis. The findings and impression are based on the available images, which may not be community relations representative of the entire organ or disease entity. Also note that ultrasound image acquisition is two needle machine operator dependent, and that the study was performed outside our facility with no control over image acquisition. ??In addition, the provided images may or may not represent the [place] source data set and thus may contain [...] IMAGING STUDY STUDY INITIALLY PERFORMED: 07/01/2024 at [facility]. TYPE OF STUDY: Multiple ultrasound images without [...] IMAGING STUDY STUDY INITIALLY PERFORMED: 07/01/2024 at [facility]. TYPE OF STUDY: Multiple ultrasound images without [...] the available images, which may not be community relations representative of the entire organ or disease entity. Also note that ultrasound image acquisition is two needle machine operator dependent, and that the study was performed outside our facility with no control over image acquisition. In addition, the provided images may or may not represent the [place] source data set and thus may contain [...] necessary. Electronically signed by: Kevin Gottlieb M.D. us Marylou Saravia MD IM US PROCEDURES Fi nal Result * CT [...] images may or may not represent the [place] source data set and thus may contain changes that may lower the accuracy of this second-opinion interpretation. Electronically signed by: Geo Patel MD, PHD Narrative 07/07/2024 8:45 AM CDT EXAMINATION: RADIOLOGY CONSULTATION ON OUTSIDE IMAGING STUDY STUDY INITIALLY PERFORMED: 06/28/2024 and 07/06/2024 at [facility]. TYPE OF STUDY: Multiple CT images of [...] STUDY INITIALLY PERFORMED: 06/28/2024 and 07/06/2024 at [facility]. TYPE OF STUDY: Multiple CT images of [...] images may or may not represent the [place] source data set and thus may contain [...] images may or may not represent the [place] source data set and thus may contain changes that may lower the accuracy of this second-opinion interpretation. Electronically signed by: Carlota Murguia M.D. Narrative 07/07/2024 10:22 AM CDT EXAMINATION: RADIOLOGY CONSULTATION ON OUTSIDE IMAGING STUDY STUDY INITIALLY PERFORMED: 06/10/2024 and 07/02/2024 at [facility]. TYPE OF STUDY: Multiple CT images [...] herniation or hydrocephalus. CT cervical spine: Multilevel hrpt-ik-btwerixo degenerative change without high-grade spinal canal or neural foraminal narrowing. ??No CT evidence of osteomyelitis in the cervical spine. Thoracic spine: Multilevel ytkp-ot-tojvowdb degenerative change without high-grade spinal canal or neural foraminal narrowing. ??No CT evidence of osteomyelitis in the cervical spine. Mediastinal adenopathy, cardiomegaly, pericardial effusion and lung nodules are better evaluated on concurrent CT chest, abdomen and pelvis. Lumbar spine: Multilevel rgsz-wq-ixneqsjb degenerative change without high-grade spinal canal or neural foraminal narrowing. ??No CT evidence of osteomyelitis in the cervical spine. Procedure Note Carlota Pompa MD - 07/07/2024 EXAMINATION: RADIOLOGY CONSULTATION ON OUTSIDE IMAGING STUDY STUDY INITIALLY PERFORMED: 06/10/2024 and 07/02/2024 at [facility]. TYPE OF STUDY: Multiple CT images [...] herniation or hydrocephalus. CT cervical spine: Multilevel ztzc-pa-qsooerbg degenerative change without high-grade spinal canal or neural foraminal narrowing. No CT evidence of osteomyelitis in the cervical spine. Thoracic spine: Multilevel hhea-cz-wypuinkf degenerative change without high-grade spinal canal or neural foraminal narrowing. No CT evidence of osteomyelitis in the cervical spine. Mediastinal adenopathy, cardiomegaly, pericardial effusion and lung nodules are better evaluated on concurrent CT chest, abdomen and pelvis. Lumbar spine: Multilevel pydr-yt-extpanqw degenerative change without high-grade spinal canal or [...] images may or may not represent the [place] source data set and thus may contain [...] images may or may not represent the [place] source data set and thus may contain changes that may lower the accuracy of this second-opinion interpretation. Electronically signed by: Carlota Murguia M.D. Narrative 07/07/2024 10:22 AM CDT EXAMINATION: RADIOLOGY CONSULTATION ON OUTSIDE IMAGING STUDY STUDY INITIALLY PERFORMED: 06/10/2024 and 07/02/2024 at [facility]. TYPE OF STUDY: Multiple CT images [...] herniation or hydrocephalus. CT cervical spine: Multilevel fcbu-oc-onnilugu degenerative change without high-grade spinal canal or neural foraminal narrowing. ??No CT evidence of osteomyelitis in the cervical spine. Thoracic spine: Multilevel pwfb-oe-uccpsidk degenerative change without high-grade spinal canal or neural foraminal narrowing. ??No CT evidence of osteomyelitis in the cervical spine. Mediastinal adenopathy, cardiomegaly, pericardial effusion and lung nodules are better evaluated on concurrent CT chest, abdomen and pelvis. Lumbar spine: Multilevel jzuq-et-gpkiqugr degenerative change without high-grade spinal canal or neural foraminal narrowing. ??No CT evidence of osteomyelitis in the cervical spine. Procedure Note Carlota Pompa MD - 07/07/2024 EXAMINATION: RADIOLOGY CONSULTATION ON OUTSIDE IMAGING STUDY STUDY INITIALLY PERFORMED: 06/10/2024 and 07/02/2024 at [facility]. TYPE OF STUDY: Multiple CT images [...] herniation or hydrocephalus. CT cervical spine: Multilevel iwuc-jj-wqxzepwb degenerative change without high-grade spinal canal or neural foraminal narrowing. No CT evidence of osteomyelitis in the cervical spine. Thoracic spine: Multilevel jlgj-gk-awiqukao degenerative change without high-grade spinal canal or neural foraminal narrowing. No CT evidence of osteomyelitis in the cervical spine. Mediastinal adenopathy, cardiomegaly, pericardial effusion and lung nodules are better evaluated on concurrent CT chest, abdomen and pelvis. Lumbar spine: Multilevel lidd-wl-erttacnt degenerative change without high-grade spinal canal or [...] images may or may not represent the [place] source data set and thus may contain changes that may lower the accuracy of this second-opinion interpretation. Electronically signed by: Carlota Murguia M.D. us Marylou Saravia MD IM CT PROCEDURES Fi nal Result * XR Outside Reference (07/07/2024 6:39 AM CDT) Impressions [facility] - 07/07/2024 6:39 AM CDT These images are for Reference purposes only and have not been reviewed by [facility]iology. ??There will be no report generated by a [facility] Radiologist. Narrative [facility] - 07/07/2024 6:39 AM CDT EXAMINATION: ??Images For Reference Purposes Only Marylou Saravia MD IM XR PROCEDURES Fi nal Result [facility] * [...] images may or may not represent the [place] source data set and thus may contain changes that may lower the accuracy of this second-opinion interpretation. Electronically signed by: Carlota Murguia M.D. Narrative 07/07/2024 10:22 AM CDT EXAMINATION: RADIOLOGY CONSULTATION ON OUTSIDE IMAGING STUDY STUDY INITIALLY PERFORMED: 06/10/2024 and 07/02/2024 at [facility]. TYPE OF STUDY: Multiple CT images [...] herniation or hydrocephalus. CT cervical spine: Multilevel zjmr-yu-pqtqlbfs degenerative change without high-grade spinal canal or neural foraminal narrowing. ??No CT evidence of osteomyelitis in the cervical spine. Thoracic spine: Multilevel rewj-yu-inyhxbzt degenerative change without high-grade spinal canal or neural foraminal narrowing. ??No CT evidence of osteomyelitis in the cervical spine. Mediastinal adenopathy, cardiomegaly, pericardial effusion and lung nodules are better evaluated on concurrent CT chest, abdomen and pelvis. Lumbar spine: Multilevel nnjg-wu-jknadmyh degenerative change without high-grade spinal canal or neural foraminal narrowing. ??No CT evidence of osteomyelitis in the cervical spine. Procedure Note Carlota Pompa MD - 07/07/2024 EXAMINATION: RADIOLOGY CONSULTATION ON OUTSIDE IMAGING STUDY STUDY INITIALLY PERFORMED: 06/10/2024 and 07/02/2024 at [facility]. TYPE OF STUDY: Multiple CT images [...] herniation or hydrocephalus. CT cervical spine: Multilevel cveb-up-ppgvmfhc degenerative change without high-grade spinal canal or neural foraminal narrowing. No CT evidence of osteomyelitis in the cervical spine. Thoracic spine: Multilevel cmop-lv-zwhvjwtd degenerative change without high-grade spinal canal or neural foraminal narrowing. No CT evidence of osteomyelitis in the cervical spine. Mediastinal adenopathy, cardiomegaly, pericardial effusion and lung nodules are better evaluated on concurrent CT chest, abdomen and pelvis. Lumbar spine: Multilevel ekcu-ey-hqqfvuvu degenerative change without high-grade spinal canal or [...] images may or may not represent the [place] source data set and thus may contain changes that may lower the accuracy of this second-opinion interpretation. Electronically signed by: Carlota Murguia M.D. us Marylou Saravia MD IMG CT PROCEDURES Fi [...] of this study generated by a [facility] Radiologist. Electronically signed by: Kevin Gottlieb M.D. [...] of this study generated by a [facility] Radiologist. Electronically signed by: Kevin Gottlieb M.D. us Marylou Saravia MD IM CT PROCEDURES Fi nal Result * Neuro [...] images may or may not represent the [place] source data set and thus may contain changes that may lower the accuracy of this second-opinion interpretation. Electronically signed by: Carlota Murguia M.D. Narrative 07/07/2024 10:22 AM CDT EXAMINATION: RADIOLOGY CONSULTATION ON OUTSIDE IMAGING STUDY STUDY INITIALLY PERFORMED: 06/10/2024 and 07/02/2024 at [facility]. TYPE OF STUDY: Multiple CT images [...] herniation or hydrocephalus. CT cervical spine: Multilevel avsx-nm-ftnovuon degenerative change without high-grade spinal canal or neural foraminal narrowing. ??No CT evidence of osteomyelitis in the cervical spine. Thoracic spine: Multilevel olsz-xh-nsfltpza degenerative change without high-grade spinal canal or neural foraminal narrowing. ??No CT evidence of osteomyelitis in the cervical spine. Mediastinal adenopathy, cardiomegaly, pericardial effusion and lung nodules are better evaluated on concurrent CT chest, abdomen and pelvis. Lumbar spine: Multilevel ivqd-hp-rimsklsz degenerative change without high-grade spinal canal or neural foraminal narrowing. ??No CT evidence of osteomyelitis in the cervical spine. Procedure Note Fabiano Murguia, Carlota Aaron MD - 07/07/2024 EXAMINATION: RADIOLOGY CONSULTATION ON OUTSIDE IMAGING STUDY STUDY INITIALLY PERFORMED: 06/10/2024 and 07/02/2024 at [facility]. TYPE OF STUDY: Multiple CT images [...] herniation or hydrocephalus. CT cervical spine: Multilevel mysq-ro-ffxydbdk degenerative change without high-grade spinal canal or neural foraminal narrowing. No CT evidence of osteomyelitis in the cervical spine. Thoracic spine: Multilevel xsnr-is-sgfiskyz degenerative change without high-grade spinal canal or neural foraminal narrowing. No CT evidence of osteomyelitis in the cervical spine. Mediastinal adenopathy, cardiomegaly, pericardial effusion and lung nodules are better evaluated on concurrent CT chest, abdomen and pelvis. Lumbar spine: Multilevel iwoq-ek-glqypgvy degenerative change without high-grade spinal canal or [...] images may or may not represent the [place] source data set and thus may contain [...] images may or may not represent the [place] source data set and thus may contain changes that may lower the accuracy of this second-opinion interpretation. Electronically signed by: Geo Patel MD, PHD Narrative 07/07/2024 8:45 AM CDT EXAMINATION: RADIOLOGY CONSULTATION ON OUTSIDE IMAGING STUDY STUDY INITIALLY PERFORMED: 06/28/2024 and 07/06/2024 at [facility]. TYPE OF STUDY: Multiple CT images of [...] STUDY INITIALLY PERFORMED: 06/28/2024 and 07/06/2024 at [facility]. TYPE OF STUDY: Multiple CT images of [...] images may or may not represent the [place] source data set and thus may contain changes that may lower the accuracy of this second-opinion interpretation. Electronically signed by: Geo Patel MD, PHD Marylou Saravia MD IM CT PROCEDURES Fi nal Result * Infection Prevention MRSA Only (Staphylococcus aureus) Culture Nasal (07/07/2024 4:24 AM CDT) Report Final Report: Negative Nasal 07/07/2024 4:24 AM CDT 07/07/2024 4:47 AM CDT Narrative [facility] - 07/08/2024 5:28 AM CDT Testing performed by [facility] ([phone]). Elvira Cooper MD LAB MICROBIOLOGY - GENERA L ORDERABLES Final Result Performing Organization Address [facility] de Phone Number [facility] Department [place] [address] * (ABNORMAL) Hemoglobin A1c (07/07/2024 1:34 AM CDT) Pathologist [facility] Hgb A1C 7.7(H) 4.0 - 5.6 % Estimated Average Glucose 174 mg/dL [facility] Comment: The ADA recommends reporting an [...] ORDERABLES Ayanna l Result Performing Organization Address [facility] de Phone Number [facility] Department [place] [address] * eGFR (07/07/2024 1:34 AM CDT) eGFR [...] MD LAB BLOOD ORDERABLES Ayanna vazquez Result [facility] Department [place] [address] * Differential, auto (07/07/2024 1:34 AM CDT) Neutrophil abs 5.5 1.5 - 6.5 K/cumm Imm gran abs 0.1 0.0 - 0.1 K/cumm [facility] Lymphocyte abs 1.3 0.8 - 3.3 K/cumm [facility] Monocyte abs 0.4 0.2 - 0.8 K/cumm [facility] Eosinophil abs 0.3 0.0 - 0.5 K/cumm [facility] Basophil abs 0.1 0.0 - 0.1 K/cumm [facility] Neutrophil pct 71.8 % [facility] Comment: Interpretive Data Percent cell count reference ranges are not reported, since discordance with absolute values may lead to misinterpretation of CBC data. Current Interpretive Data was last revised on 2018. Imm gran pct 1.4 % [facility] Comment: Interpretive Data Percent cell count reference ranges are not reported, since discordance with absolute values may lead to misinterpretation of CBC data. Current Interpretive Data was last revised on 2018. Lymphocyte pct 16.7 % [facility] Comment: Interpretive Data Percent cell count reference ranges are not reported, since discordance with absolute values may lead to misinterpretation of CBC data. Current Interpretive Data was last revised on 2018. Monocyte pct 5.8 % [facility] Comment: Interpretive Data Percent cell count reference ranges are not reported, since discordance with absolute values may lead to misinterpretation of CBC data. Current Interpretive Data was last revised on 2018. Eosinophil pct 3.5 % [facility] Comment: Interpretive Data Percent cell count reference ranges are not reported, since discordance with absolute values may lead to misinterpretation of CBC data. Current Interpretive Data was last revised on 2018. Basophil pct 0.8 % [facility] Comment: Interpretive Data Percent cell count reference ranges are not reported, since discordance with absolute values may lead to misinterpretation of CBC data. Current Interpretive Data was last revised on 2018. Blood 07/07/2024 1:34 AM CDT 07/07/2024 2:25 AM CDT Elvira Cooper MD LAB BLOOD ORDERABLES Ayanna l Result Performing Organization Address City/[facility] de Phone Number [facility] Department [place] [address] * (ABNORMAL) CRP (acute phase) (07/07/2024 1:34 AM CDT) CRP 14.9(H) <=10.0 mg/L Blood 07/07/2024 1:34 AM CDT 07/07/2024 2:23 AM CDT Elvira Cooper MD LAB BLOOD ORDERABLES Ayanna l [facility] [place] [address] * (ABNORMAL) Erythrocyte sedimentation rate (07/07/2024 1:34 AM CDT) Erythrocyte sedimentation rate 41(H) 1 - 30 mm/hr Blood 07/07/2024 1:34 AM CDT 07/07/2024 2:25 AM CDT us Elvira Cooper MD LAB BLOOD ORDERABLES Ayanna l Result Performing Organization Address [facility] Co de Phone Number [facility] Department [place] [address] * Blood culture Blood (07/07/2024 1:34 AM CDT) Report Final Report: No growth Blood 07/07/2024 1:34 AM CDT 07/07/2024 1:53 AM CDT Narrative [facility] - 07/11/2024 7:00 AM CDT From a [...] organism identification may be performed using the [employer] Gram-Positive Blood Culture Assay. This assay detects microbial DNA in positive blood culture broth via hybridization of target DNA to capture oligonucleotides on a microarray. This assay has been cleared by the [place] Food and Drug Administration and its performance characteristics have been verified by the [facility]. 5. ?For questions about this culture, contact the Microbiology Laboratory at [phone]. Interpretive data was last revised on 2020. Elvira Cooper MD LAB MICROBIOLOGY - GENERA L ORDERABLES Final Result [facility] Department [place] [address] * Blood culture Blood (07/07/2024 1:34 AM CDT) Report Final Report: No growth Blood 07/07/2024 1:34 AM CDT 07/07/2024 1:53 AM CDT Narrative [facility] - 07/11/2024 7:00 AM CDT Collection->Peripheral 1. [...] organism identification may be performed using the [employer] Gram-Positive Blood Culture Assay. This assay detects microbial DNA in positive blood culture broth via hybridization of target DNA to capture oligonucleotides on a microarray. This assay has been cleared by the [place] Food and Drug Administration and its performance characteristics have been verified by the [facility]. 5. ?For questions about this culture, contact the Microbiology Laboratory at [phone]. Interpretive data was last revised on 2020. Result [facility] Elvira Cooper MD LAB MICROBIOLOGY - GENERA L ORDERABLES Final Result Performing Organization Address [facility] [place] [address] * aPTT (07/07/2024 1:34 AM CDT) aPTT 28 28 - 38 sec Comment: Interpretive Data Heparin therapeutic range: 66.0 - 100.0 seconds. Range based on correlation with therapeutic heparin activity range of 0.3 - 0.7 Units/mL. Current interpretive data was last revised on 2023. Blood 07/07/2024 1:34 AM CDT 07/07/2024 2:06 AM CDT Result [facility] Elvira Cooper MD LAB BLOOD ORDERABLES Ayanna l Result Performing Organization Address [facility] [place] [address] * (ABNORMAL) Protime-INR (07/07/2024 1:34 AM CDT) PT 16.0(H) 9.7 - 13.0 sec INR 1.47(H) 0.90 - 1.20 [facility] Comment: Interpretive data Oral anticoagulant therapeutic ranges: Venous thromboembolism prophylaxis or treatment: 2.0-3.0 CARDIOLOGY Standard range: 2.0-3.0 High-intensity range: 2.5-3.5 Refer to indication-specific guidelines for appropriate target ranges for prosthetic heart valve replacement. Current interpretive data was last revised on 2019. Blood 07/07/2024 1:34 AM CDT 07/07/2024 2:06 AM CDT Result [facility] Elvira Cooper MD LAB BLOOD ORDERABLES Ayanna l Result Performing Organization Address City/[facility]/[place] [address] * Type and screen (07/07/2024 1:34 AM CDT) Pathologist [facility] ABO Rh O Positive Marguerite, indirect Negative [facility] Blood 07/07/2024 1:34 AM CDT 07/07/2024 2:14 AM CDT Narrative [facility] - 07/07/2024 3:04 AM CDT Has the patient had Daratumumab or Isatuximab in the past 6 months?->Unknown Elvira Cooper MD LAB BLOOD BANK TEST ORDER DONATO Final Result Performing Organization Address [facility] Co de Phone Number [facility] [place] [address] * (ABNORMAL) CBC with auto differential (07/07/2024 1:34 AM CDT) Pathologist [facility] WBC 7.7 3.8 - 9.9 K/cumm Hgb 10.8(L) 11.9 - 15.5 g/dL [facility] Hct 33.2(L) 35.6 - 45.5 % [facility] Plt 339 150 - 400 K/cumm [facility] MPV 10.0 9.1 - 12.3 fL [facility] RBC 3.34(L) 3.90 - 5.20 M/cumm [facility] MCV 99.4(H) 81.3 - 96.4 fL [facility] MCH 32.3 27.1 - 33.3 pg [facility] MCHC 32.5 32.3 - 35.7 g/dL [facility] RDW CV 14.1 11.1 - 14.9 % [facility] RDW SD 50.9(H) 35.7 - 48.1 fL [facility] NRBC abs 0.00 0.00 - 0.01 K/cumm [facility] Blood 07/07/2024 1:34 AM CDT 07/07/2024 2:25 AM CDT Result [facility] Elvira Cooper MD LAB BLOOD ORDERABLES Ayanna l Result Performing Organization Address [facility] [facility] Co de Phone Number [facility] [place] [address] * Troponin I high-sensitivity (07/07/2024 1:34 AM CDT) Trop I hs 9 <=17 ng/L Comment: Interpretive Data For further hscTnI resources including the diagnostic algorithm and an aid in interpretation, copy and paste this link: [email or web address] Current Interpretive Data last revised 2020. Blood 07/07/2024 1:34 AM CDT 07/07/2024 2:25 AM CDT Result [facility] Elvira Cooper MD LAB BLOOD ORDERABLES Ayanna l Result Performing Organization Address [facility] de Phone Number [facility] [place] [address] * (ABNORMAL) Pro B-type natriuretic peptide (07/07/2024 [...] MD LAB BLOOD ORDERABLES Ayanna vazquez Result [facility] Department of Laboratories [place], [place] [id number] * Lactate (07/07/2024 1:34 AM CDT) Lactate 1.9 0.7 - 2.0 mmol/L Blood 07/07/2024 1:34 AM CDT 07/07/2024 2:25 AM CDT Elvira Cooper MD LAB BLOOD ORDERABLES Ayanna l Result Performing Organization Address City/[facility]/ZIP Co de Phone Number [facility] Department [place] [address] * Magnesium (07/07/2024 1:34 AM CDT) Pathologist [facility] Magnesium 1.9 1.4 - 2.5 mg/dL Blood 07/07/2024 1:34 AM CDT 07/07/2024 2:23 AM CDT Elvira Cooper MD LAB BLOOD ORDERABLES Ayanna l Result Performing Organization Address [facility] Co de Phone Number [facility] Department [place] [address] * (ABNORMAL) Comprehensive metabolic panel (07/07/2024 1:34 AM CDT) Pathologist [facility] Sodium 136 135 - 145 mmol/L Potassium, pl See Comment 3.3 - 4.9 mmol/L [facility] Comment:Credited; Hemolyzed Specimen Chloride 99 97 - 110 mmol/L [facility] CO2 29 22 - 32 mmol/L [facility] Anion gap 8 2 - 15 mmol/L [facility] BUN 15 6 - 25 mg/dL [facility] Creatinine 0.65 0.60 - 1.10 mg/dL [facility] Glucose 186 70 - 199 mg/dL [facility] Comment: Interpretive Data Fasting glucose >/= [...] 2022. Calcium 8.9 8.5 - 10.3 mg/dL [facility] Bilirubin, total 0.4 0.1 - 1.2 mg/dL [facility] Protein, pl 7.2 6.5 - 8.5 g/dL [facility] Albumin 3.0(L) 3.5 - 5.0 g/dL [facility] Alk phos 182(H) 40 - 130 Units/L [facility] Comment:Hemolyzed; result ma y be falsely decreased ALT See Comment 7 - 45 Units/L [facility] Comment:Credited; Hemolyzed Specimen AST See Comment 10 - 45 Units/L [facility] Comment:Credited; Hemolyzed Specimen Blood 07/07/2024 1:34 AM CDT 07/07/2024 2:23 AM CDT us Elvira Cooper MD LAB BLOOD ORDERABLES Ayanna vazquez Result Performing Organization Address City/State/[facility] Co de Phone Number [facility] Department [place] [address] documented in this encounter Visit Diagnoses Diagnosis Osteomyelitis (HCC)- Primary Unspecified osteomyelitis, site unspecified Acute bacterial endocarditis Acute and subacute bacterial endocarditis Ventricular tachycardia (HCC) Paroxysmal ventricular tachycardia SOB (shortness of breath) Shortness of breath Acute on chronic systolic congestive heart failure (CMS/HCC) (HCC) Endocarditis Endocarditis, valve unspecified, unspecified cause Acute bacterial endocarditis Acute and subacute bacterial endocarditis documented in this encounter Admitting Diagnoses Diagnosis [...] Given 08/01/2024 12:35 PM CDT 1,000 mg apixaban (ELIQUIS) tablet 5 mg 5 [...] Given 08/01/2024 8:26 AM CDT 5 mg BUPivacaine (MARCAINE) 0.25 % (2.5 mg/mL) preservative free injection As needed, Starting on Tue07/13/24 at 1741, Intra-Op Given 07/13/2024 5:41 PM CDT 30 mL calcium carbonate (TUMS) chewable tablet 500 mg [...] Given 08/01/2024 8:26 AM CDT 1,000 mg cyclobenzaprine (FLEXERIL) tablet 5 mg 5 mg, oral, 3 times daily PRN, muscle spasms, Starting on 07/07/24 at 0110 Given 07/23/2024 11:33 AM CDT 5 mg Given 07/15/2024 10:19 PM CDT 5 mg Given 07/14/2024 9:34 PM CDT 5 mg dextrose (D10W) 10% bolus 250 mL 250 [...] of hypoglycemia., Indications: hypoglycemic disorderIndications:hypoglycemic disorder dextrose gel in packet 15 g 15 [...] Given 07/31/2024 8:57 AM CDT 10 mg furosemide (LASIX) tablet 40 mg 40 mg, [...] 2:20 PM CDT 1 mg Right Deltoid insulin glargine (LANTUS, SEMGLEE) 100 unit/mL injection [...] CDT 11 Units Ri ght Lower Abdomen levothyroxine (SYNTHROID) tablet 75 mcg 75 mcg, [...] Apply to affected area: arm, Laterality: Bilateral magnesium oxide (MAG-OX) tablet 800 mg 800 mg, oral, Daily, First dose (after last modification) on Tue07/26/24 at 0900, 1 tablet = Magnesium oxide 400 mg = 241.3 mg elemental magnesium, Indications: hypomagnesemiaIndications:hypomagnesemia Given 08/02/2024 8:41 AM CDT 800 mg Given 08/01/2024 8:26 AM CDT 800 mg Given 07/31/2024 8:57 AM CDT 800 mg metoprolol XL (TOPROL-XL) extended release tablet 100 mg 100 mg, oral, Daily, First dose (after last modification) on Tue07/27/24 at 0900, Tablets that are scored may be split, but do not crush, chew, dissolve, open or otherwise manipulate tablet/capsule. Given 08/02/2024 8:43 AM CDT 100 mg Given 08/01/2024 8:27 AM CDT 100 mg Given 07/31/2024 8:57 AM CDT 100 mg mirabegron ER (MYRBETRIQ) extended release tablet 25 mg 25 mg, oral, Daily, First dose on Tue07/07/24 at 0900, Do not crush, chew, cut, dissolve, open or otherwise manipulate tablet/capsule. Given 08/02/2024 8:42 AM CDT 25 mg Given 08/01/2024 8:26 AM CDT 25 mg Given 07/31/2024 8:56 AM CDT 25 mg nortriptyline (PAMELOR) capsule 10 mg 10 mg, oral, Nightly, First dose (after last modification) on Tue07/20/24 at 2100 Given 08/01/2024 8:58 PM CDT 10 mg Given 07/31/2024 9:56 PM CDT 10 mg Given 07/30/2024 8:01 PM CDT 10 mg ondansetron (ZOFRAN) injection 4 mg 4 mg, [...] Given 07/31/2024 8:57 AM CDT 20 mg polyethylene glycol (MIRALAX) packet 17 g 17 [...] Given 08/01/2024 8:25 AM CDT 17 g ramelteon (ROZEREM) tablet 8 mg 8 mg, oral, Nightly PRN, sleep, Starting on 07/07/24 at 0013, Indications: Sleep-Onset InsomniaIndications:Sleep-Onset Insomnia Given 07/29/2024 9:34 PM CDT 8 m g Given 07/25/2024 8:06 PM CDT 8 mg [...] size. Flush before and after each use. spironolactone (ALDACTONE) split tablet 12.5 mg 12.5 mg, oral, Daily, First dose on Tue07/09/24 at 1230 Given 08/02/2024 8:42 AM CDT 12.5 mg Given 08/01/2024 8:27 AM CDT 12.5 mg Given 07/31/2024 8:56 AM CDT 12.5 mg documented in this encounter Discontinued Medications Medication [...] Sosa Logan RN)1211 (Given - Provider: Emily Root)2156 (Given - Provider: Sosa Logan RN) 0509 (Given - Provider: Sosa Logan RN)1235 (Given - Provider: Emily Root)2057 (Given - Provider: Marleen Mack, BROWN) 0511 (Not Given - Provider: Marleen Mack [...] atrial fibrillation 0856 (Given - Provider: Emily Root)215 (Given - Provider: Sosa Logan RN) 0826 (Given - Provider: Emily Root)2057 (Given - Provider: Marleen Mack, BROWN) 0841 (Given - Provider: Emily Root) cefadroxil (DURICEF) 500 mg capsule 1,000 mg 1,000 mg, oral, 2 times daily, First dose on Tue07/25/24 at 2100, Indications: MSSA BSI, in conjuction with Dalbavancin, 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 0857 (Given - Provider: Emily Root)2155 (Given - Provider: Sosa Logan, BROWN) 0826 (Given - Provider: Emily Root)2057 (Given [...] dalbavancin. Dalbavancin is not compatible with saline., [facility] appropriate use criteria for dalbavancin are [...] Diabetes Mellitus 0855 (Given - Provider: Emily Root)1208 (Given - Provider: Emily Root)1800 (Given - [...] Mellitus 0020 (Not Given - Provider: Sosa Logan RN - Reason: Patient/family refused)2057 (Given - Provider: Marleen Mack, RN) insulin lispro (HumaLOG, ADMELOG) 100 unit/mL injection [...] 0509) 0512 (Not Given - Provider: Marleen Mack, RN - Reason: Patient/family refused) lidocaine (ASPERCREME) [...] at 2100 2156 (Given - Provider: Sosa Logan RN) 2058 (Given - Provider: Marleen Mack, BROWN) [...] heart failure 0856 (Given - Provider: Emily Root)2155 (Given - Provider: Sosa Logan RN) 0826 (Given - Provider: Emily Root)2057 (Given - Provider: Marleen Mack, BROWN) 0843 (Given - Provider: Emily Root) senna-docusate (PERICOLACE) 8.6-50 mg per tablet 1 tablet 1 tablet, oral, 2 times daily, First dose on 07/07/24 at 0900 0856 (Given - Provider: Emily Root)215 (Given - Provider: Sosa Logan RN) 0827 (Given - Provider: Emily Root)2057 (Given - Provider: Marleen Mack, BROWN) 0842 (Given - Provider: Emily Root) sodium chloride 0.9% flush 0.5-20 mL 0.5-20 mL, intra-catheter, Every 8 hours scheduled, First dose on Tue07/07/24 at 0100, Flush volume based on line type and size. 0548 (Not Given - Provider: Sosa Logan RN - Reason: Other)1758 (Given - Provider: Emily Root)2214 (Not Given - Provider: Sosa Logan RN - Reason: Other) 0510 (Not Given - Provider: Sosa Logan RN - Reason: Other)1255 (Given - Provider: Emily Root)2042 (Not Given - Provider: Marleen Mack RN [...] - Reason: Other)1758 (Given - Provider: Emily Root)221 (Not Given - Provider: Sosa Logan RN [...] Daily, First dose on 07/09/24 at 1230 0856 (Given - Provider: Emily [...] intra-catheter, As needed, line care, Starting on 07/25/24 at 1446, Pre-Procedure (IR), Flush volume based [...] dalbavancin. Dalbavancin is not compatible with saline., [facility] appropriate use criteria for dalbavancin are [...] Count Last Ordered Date First Ordered Date dalbavancin (DALVANCE) 1,500 mg in dextrose 5% 500 mL IVPB 2 08/01/2024 07/25/2024 dextrose 5% water flush 10 mL 4 08/01/2024 07/25/2024 potassium chloride ER (KLOR- CON) extended release tablet 40 mEq 3 08/01/2024 07/09/2024 magnesium sulfate 2 g/50 mL in water (premix) 2 g 8 07/30/2024 07/11/2024 calcium carbonate (TUMS) yony wable tablet 500 mg 1 07/29/2024 polyethylene glycol (MIRALAX) packet 17 g 2 07/28/2024 07/07/2024 sodium chloride 0.9% infusion 3 07/27/2024 07/10/2024 metoprolol XL (TOPROL-XL) ex tended release tablet 100 mg 1 07/26/2024 acetaminophen (TYLENOL) tablet 1,000 mg 2 1 Carrier Fluids for Secondary Infusion - 0.9% Sodium Chloride 3 07/25/2024 07/07/2024 cefadroxil (DURICEF) 500 mg capsule 1,000 mg 1 07/25/2024 lidocaine (LMX) 4 % cream 1 Application 2 1 07/12/2024 magnesium oxide (MAG-OX) tablet 800 mg 1 potassium chloride ER (KLOR- CON) extended release tablet 30 mEq 2 07/25/2024 07/10/2024 sodium chloride 0.9% flush 0.5-20 mL 5 07/1007/07/2024 fludeoxyglucose F-18 (FDG) i njection 15 millicurie 1 07/23/2024 lidocaine (PF) (XYLOCAINE) 1 0 mg/mL (1 %) preservative free injection 10-20 mg 1 07/23/2024 sodium chloride 0.9% flush 5-10 mL 1 2023 sodium chloride 0.9% flush 5-20 mL 1 2023 clonazePAM (KlonoPIN) disint egrating tablet 0.25 mg 3 07/22/2024 07/19/2024 insulin lispro (HumaLOG, ADM ELOG) 100 unit/mL injection 11 Units 2 07/22/2024 07/14/2024 lidocaine (ASPERCREME) 4 % patch 1 patch 1 07/20/2024 nortriptyline (PAMELOR) capsule 10 mg 2 07/202407/07/2024 clonazePAM (KlonoPIN) disint egrating tablet 0.5 mg 1 07/18/2024 insulin glargine (LANTUS, SE MGLEE) 100 unit/mL injection 26 Units 1 07/18/2024 magnesium oxide (MAG-OX) tablet 400 mg 2 07/07/2024 metoprolol (LOPRESSOR) injection 5 mg 1 06/2024 metoprolol XL (TOPROL-XL) ex tended release tablet 75 mg 1 07/18/2024 OLANZapine (ZyPREXA) 5 mg in sterile water 1 mL (5 mg/mL) syringe 1 07/18/2024 potassium chloride ER (KLOR- CON) extended release tablet 20 mEq 2 07/17/2024 07/15/2024 tc-99m tetrofosmin (MYOVIEW) injection 20 millicurie 1 07/17/2024 ioversoL (OPTIRAY 350) syringe 100 mL 1 04/2024 metoprolol (LOPRESSOR) injection 10 mg 1 nitroglycerin (NITROSTAT) wood blingual tablet 0.8 mg 1 07/16/2024 insulin lispro (HumaLOG, ADM ELOG) 100 unit/mL injection 9 Units 2 07/15/2024 07/11/2024 apixaban (ELIQUIS) tablet 5 mg 2 07/14/2024 insulin glargine (LANTUS, SE MGLEE) 100 unit/mL injection 22 Units 1 07/14/2024 insulin lispro (HumaLOG, ADM ELOG) 100 unit/mL injection 10 Units 2 07/14/2024 07/07/2024 rivaroxaban (XARELTO) tablet 20 mg 2 202307/07/2024 fentaNYL (SUBLIMAZE) preserv ative free injection 50 mcg 1 07/13/2024 haloperidol (HALDOL) injection 0.5 mg 1 01/2024 HYDROmorphone (DILAUDID) injection 0.5 mg 1 07/13/2024 Lactated Ringer's (LR) infusion 1 naloxone (NARCAN) 0.4 mg/mL injection 0.04-0.4 mg 1 07/13/2024 norepinephrine in dextrose 5 % (LEVOPHED) 8,000 mcg/250 mL (32 mcg/mL) infusion (premix) 1 07/13/2024 oxyCODONE (ROXICODONE) tablet 5 mg 1 2023 insulin lispro (HumaLOG, ADM ELOG) 100 unit/mL injection 0-10 Units 1 07/11/2024 insulin lispro (HumaLOG, ADM ELOG) 100 unit/mL injection 0-5 Units 2 07/11/2024 07/07/2024 insulin lispro (HumaLOG, ADM ELOG) 100 unit/mL injection 7 Units 1 07/09/2024 spironolactone (ALDACTONE) s plit tablet 12.5 mg 1 07/09/2024 acetaminophen (TYLENOL) tablet 650 mg 1 carvediloL (COREG) tablet 25 mg 1 ceFAZolin (ANCEF) 2,000 mg/2 0 mL in sterile water (premix) 2,000 mg 1 07/07/2024 cyclobenzaprine (FLEXERIL) tablet 5 mg 1 dextrose (D10W) 10% bolus 250 mL 1 07/07/20 dextrose gel in packet 15 g 1 07/07/2024 escitalopram (LEXAPRO) tablet 10 mg 1 07/07 furosemide (LASIX) tablet 40 mg 1 glucagon injection 1 mg 1 07/07/2024 heparin 1,000 unit/mL inject ion 4,500 Units 1 07/07/2024 heparin 1,000 unit/mL inject ion 9,100 Units 2 07/07/2024 heparin in 0.45% sodium chlo ride 25,000 units/250 mL (100 units/mL) infusion (premix) 1 07/07/2024 insulin glargine (LANTUS, SE MGLEE) 100 unit/mL injection 18 Units 1 07/07/2024 insulin lispro (HumaLOG, ADM ELOG) 100 unit/mL injection 0-4 Units 1 07/07/2024 insulin lispro (HumaLOG, ADM ELOG) 100 unit/mL injection 6 Units 1 07/07/2024 levothyroxine (SYNTHROID) tablet 75 mcg 1 0 07/07/2024 metoprolol XL (TOPROL-XL) ex tended release tablet 50 mg 2 07/07/2024 mirabegron ER (MYRBETRIQ) ex tended release tablet 25 mg 1 07/07/2024 ondansetron (ZOFRAN) injection 4 mg 1 07/07 ondansetron ODT (ZOFRAN-ODT) disintegrating tablet 4 mg 1 07/07/[address] (PROTONIX) e xtended release tablet 20 mg 1 07/07/2024 perflutren lipid (DEFINITY) 1.5 mL in sodium chloride 0.9% 10 mL syringe 1 07/07/2024 ramelteon (ROZEREM) tablet 8 mg 1 sacubitriL-valsartan (ENTRES TO) 24-26 mg tablet 1 tablet 1 07/07/2024 senna-docusate (PERICOLACE) 8.6-50 mg per tablet 1 tablet 1 07/07/2024 Lab Orders Without Results Count Last Ordered D ate First Ordered Date POCT GLUCOSE DEVICE 125 08/02/2024 07/07/20 CBC WITH AUTO DIFFERENTIAL 3 07/30/2024 1 [...] Date Last Indicated Resolved Time Ring Surveillance Comment:[id number] NDM-1 07/20/2024 07/20/2024 08/03/2024 3:05 AM C DT documented as of this encounter Care Teams Prosthetics Lab Technician Relationship Specialty Start Date End Date Oswaldo Serrano MD [address] [address] PCP - General Family Medicine 04/14/18 [place] [address] [place] [address] Consulting Physician Cardiology 06/08/24 Sandro Hong MD [address] [place] [address] Referring Physician Cardiology 06/21/24 documented as of this encounter
--- OUTSIDE RECORDS SUMMARY | 2024-10-07 00:52 | XMS_ITS | Encounter Summary ---
Author Organization [facility] Healthcare Address [address] [place] [address] Care Team Providers Care Slps Name Role Phone Oswaldo Serrano MD Primary Care Provider [phone] Pastora Flores MD Unavailable Sandro Hong MD Unavailable Reason for Visit * Reason Onset Date Comments Transfer Notification 07/03/2024 Encounter Details Date Type Department Care Team (Late st Contact Info) Description 07/03/2024 Documentation Internal Medicine Elvira Cooper MD [address] [facility] [address] [place], [place] [id number] Transfer Notification Social History Tobacco Use Types Packs/Day Years Used Date Smoking Tobacco: Never Smokeless Tobacco: Never [facility] Utilities Answer Date Recorded In the past 12 months has Sidelines, gas, oil, or water [place] threatened to shut off services in your home? Yes 06/12/2024 Social Connection and Isolat ion Panel [NHANES] Answer Date Recorded In a typical week, how many times do you talk on the phone with family, friends, or neighbors? More than three times a week 06/12/2024 How often do you get togethe r with friends or relatives? More than three times a week 06/12/2024 How often do you attend chur or mormon services? Never 06/12/2024 Do you belong to any clubs o r organizations such as mandaen groups, unions, fraternal or athletic groups, or school groups? No 06/12/2024 How often do you attend meet ings of the clubs or organizations you belong to? Never 06/12/2024 Are you , , di vorced, , never , or living with a partner? 06/12/2024 AUDIT-C Answer Date Recorded Q1: How often [...] like food, housing, medical care, and heating? Somewhat hard 06/12/2024 Hunger Vital Sign Answer Date Recorded Within the past 12 months, y ou worried that your food would run out before you got the money to buy more. Never true 06/12/20 24 Within the past 12 months, t he food you bought just didn't last and you didn't have money to get more. Never true 06/12/2024 PRAPARE - Transportation Answer Date Re corded In the past 12 months, has l ack of transportation kept you from medical appointments or from getting medications? No 12/2023 In the past 12 months, has l ack of transportation kept you from meetings, work, or from getting things needed for daily living? No 06/12/2024 Housing Stability Vital Sign Answer Charlie e Recorded In the last 12 months, was t here a time when you were not able to pay the mortgage or rent on time? No 06/12/2024 In the past 12 months, how m any times have you moved where you were living? 1 06/12/2024 At any time in the past 12 m [facility], were you homeless or living in a assisted (including now)? No 06/12/2024 Personal Safety Answer Date Recorded Getting School Help Needed Not on file 12/24 Comments Unknown Sex and Gender Information Value Date Recorded Sex Assigned at Not on file Legal Sex Female 3:51 AM [employer] Gender Identity Not on file Sexual Orientation Not on file documented as of this encounter Progress Notes * Elvira Cooper MD - 07/03/2024 11:52 AM CDT Outside Hospital Transfer Note Division of Hospital Medicine Referring hospital or service: [facility] Clinical Info Reason for Transfer: Imaging Study History: 63 yo F with VT s/p ICD and MSSA tricuspid valve osteo diagnosed in May at [facility], completed 4 weeks IV Ancef in early-mid Jun - ICD left in place. Now presenting w progressive back pain, blood cultures preelim GPC clusters. CT spine without evidence of osteo but high clinical suspicion. Unable to do MRI w ICD at OSH and also don't have ID or CTS. Currently on Ancef + vanc pendingcultures. Does patient consent to transfer: yes Is the patient established with any [facility] providers?: no Outcome Primary service: Cardiology Pool Urgency: Routine Information reflected above was gathered from referring provider and/or chart review. I have not seen or examined this patient. Elvira Cooper MD Medicine Triage Attending documented in this encounter Plan of Treatment Not on file documented as of this encounter Visit Diagnoses Not on filedocumented in this encounter Care Teams Slps Relationship Specialty Start Date End Date Oswaldo Serrano MD [address] [address] PCP - General Family Medicine 04/14/18 [place] [id number] [address] Consulting Physician Cardiology 06/08/24 Sandro Hong MD [address] [place] [address] Referring Physician Cardiology 06/21/24 documented as of this encounter
--- OUTSIDE RECORDS SUMMARY | 2024-10-07 00:52 | XMS_ITS | Encounter Summary ---
Author Organization [facility] Healthcare Address [address] [place] [address] Care Team Providers Care Community Service Manager Name Role Phone Oswaldo Serrano MD Primary Care Provider [phone] Pastora Flores MD Unavailable Sandro Hong MD Unavailable Reason for Visit * Reason Comments Abdominal Pain Vomiting Diarrhea Encounter Details Date Type Department Care Team (Late st Contact Info) Description 06/26/2024 5:45 AM CDT - 06/26/2024 2:16 PM CDT Emergency [facility] Emergency Department [address] [place] [address] [place] [id number] [address] Gastroenteritis (Primary Dx) Discharge Disposition: Discharge to home or self care Social History Tobacco Use Types Packs/Day Years Used Date Smoking Tobacco: Never Smokeless Tobacco: Never [facility] Utilities Answer Date Recorded In the past 12 months has [employer], gas, oil, or water company threatened [...] 06/12/2024 How often do you attend chur ch or mandaeism services? Never 06/12/2024 Do you belong to [...] any time in the past 12 [facility], were you homeless or living in a skilled nursing (including now)? 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 Gender Identity Not on file Sexual Orientation Not on file documented as of this encounter Last Filed Vital Signs Vital Sign Reading Time Taken Comments Blood Pressure 139/66 06/26/2024 1:35 PM CDT Pulse 102 06/26/2024 1:35 PM CDT Temperature 37.1 ??C (98.7 ??F) 06/26/2024 5:38 AM CD T Respiratory Rate 16 06/26/2024 1:35 PM CDT Oxygen Saturation 95% 06/26/2024 1:35 PM CDT Inhaled Oxygen Concentration - - Weight 114.8 kg (253 lb) 06/26/2024 5:33 AM CDT Height 165.1 cm (5' 5 ) 06/26/2024 5:33 AM CDT Body Mass Index 42.1 06/26/2024 5:33 AM CDT documented in this encounter Discharge Instructions * Attachments The following attachments cannot be sent through Care Everywhere. * Gastroenteritis (AfterCare(R) Instructions(ER/ED)) (Syrian) documented in this encounter Medications at Time of Discharge albuterol HFA (PROVENTIL HFA,VENTOLIN HFA,PROAIR HFA) 90 mcg/actuation inhaler Inhale 2 puffs every 6 (six) hours as needed for wheezing cholecalciferol (VITAMIN D-3) 5,000 unit tablet Take [...] tablet Take 1 tablet by mouth daily levothyroxine (SYNTHROID) 75 mcg tablet Take 1 tablet (75 mcg total) by mouth every morning magnesium oxide (MAG-OX) 400 mg (241.3 mg elemental magnesium) tabletIndication s:hypomagnesemia Take 1 tablet (400 mg total) by mouth daily 30 tablet 06/22/2024 midodrine (PROAMATINE) 5 mg tablet Take 1 tablet (5 mg total) by mouth 2 (two) times a day as needed (if systolic blood pressure less than 90mmHg) 30 tablet 06/21/2024 multivit [id number]-IR -calcium (THERA-M) 9 mg iron-400 mcg tablet Take 1 tablet by mouth daily omeprazole (PriLOSEC) 20 mg capsule Take 1 capsule (20 mg total) by mouth daily pen needle, diabetic 32 gauge x needle Use as directed 3 times a day. 100 each 06/21/2024 Xarelto 20 mg tablet Take 1 tablet (20 mg total) by mouth daily with dinner BASAGLAR 100 unit/mL (3 mL) pen for injection Inject 18 Units under the skin daily 02/09/2024 4 Entresto 24-26 mg tablet Take 0.5 tablets by mouth 2 (two) times a day 06/21/2024 4 Farxiga 10 mg tablet Take 1 tablet (10 mg total) by mouth daily 06/01/2022 4 insulin lispro (HumaLOG) 100 unit/mL pen for [...] for Sliding Scale Insulin Instructions. 15 mL 06/21/2024 4 metoprolol XL (TOPROL-XL) 50 mg extended release tablet Take 1 tablet (50 mg total) by mouth daily 30 tablet 06/22/2024 4 nortriptyline (PAMELOR) 10 mg capsule Take 1 capsule (10 mg total) by mouth daily 05/18/2024 4 ondansetron (ZOFRAN) 4 mg tablet Take 1 tablet (4 mg total) by mouth every 6 (six) hours as needed for nausea or vomiting 20 tablet 06/26/2024 4 potassium chloride ER 20 mEq CR tablet Take 1 tablet (20 mEq total) by mouth daily 01/20/2024 4 documented as of this encounter Ordered Prescriptions Prescription Sig Dispense Quantity Refills Last Filled Start Date End Date ondansetron (ZOFRAN) 4 mg tablet Take 1 tablet (4 mg total) by mouth every 6 (six) hours as needed for nausea or vomiting 20 tablet 06/26/2024 4 documented in this encounter Discharge Disposition Disposition Code Departure Means Destination Comment s Discharge to home or self care documented in this encounter ED Notes * Brianna Martinez MD - 06/26/2024 7:43 AM CDT HPI Chief Complaint Patient presents with Abdominal Pain Vomiting Diarrhea Patient is a 63 y/o female complaining of abdominal pain, vomiting and diarrhea for 3 days. She also feels weak. She has no fever. Patient History: Patient Active Problem List Diagnosis Date Noted Ventricular tachycardia ([facility]) 06/11/2024 Chronic diastolic congestive heart failure ([facility]/HCC) ([facility]) 06/11/2024 Endocarditis 06/11/2024 Urinary frequency 06/11/2024 Gastroesophageal reflux disease without esophagitis 06/11/2024 Paroxysmal atrial fibrillation ([facility]) ([facility]) 06/11/2024 Major depressive disorder 06/11/2024 CKD (chronic kidney disease) 06/11/2024 Traumatic hematoma of right upper arm 06/06/2024 Hypotension due to drugs 06/06/2024 SOB (shortness of breath) 05/30/2024 Acute on chronic systolic congestive heart failure ([facility]/HCC) ([facility]) 05/30/2024 Neck pain 05/30/2024 Hyponatremia 05/30/2024 Chronic a-fib ([facility]) ([facility]) 05/30/2024 Controlled type 2 diabetes mellitus with chronic kidney disease, with long-term current use of insulin ([facility]) 05/30/2024 Hypothyroidism 05/30/2024 JOSE (obstructive sleep apnea) 05/30/2024 Diabetes mellitus with hyperglycemia ([facility]) ([facility]) 05/30/2024 Endocarditis 05/29/2024 Past Medical History: Diagnosis Date A-fib ([facility]/HCC) (HCC) CHF (congestive heart failure) (CMS/HCC) (HCC) Diabetes mellitus (HCC) GERD (gastroesophageal reflux disease) Hypertension Intellectual disability OAB (overactive bladder) Sleep apnea Thyroid disease Past Surgical History: Procedure Laterality Date CARDIAC DEFIBRILLATOR PLACEMENT CHOLECYSTECTOMY INSERT / REPLACE / REMOVE PACEMAKER IR PICC LINE PLACEMENT > 5 YEARS N/A 06/05/2024 OTHER SURGICAL HISTORY 05/31/2024 CHANCE/CARDIOVERSION No family history on file. Social History Tobacco Use Smoking status: Never Smokeless tobacco: Never Vaping Use Vaping status: Never Used Substance and Sexual Activity Alcohol use: None Drug use: None Sexual activity: None Social History Social History Narrative Not on file Review of Systems Review of Systems Constitutional: Negative for chills and fever. Eyes: Negative for visual disturbance. Respiratory: Negative for cough and shortness of breath. Cardiovascular: Negative for chest pain. Gastrointestinal: Positive for abdominal pain, diarrhea, nausea and vomiting. Genitourinary: Negative for dysuria and hematuria. Musculoskeletal: Negative for back pain and neck pain. Neurological: Negative for headaches. All other systems reviewed and are negative. Physical Exam ED Triage Vitals Temp Pulse Resp BP SpO2 06/26/24 0538 06/26/24 0538 06/26/24 0538 06/26/24 0538 06/26/24 0538 37.1 ??C (98.7 ??F) 125 20 101/68 92 % Temp src Heart Rate Source Patient Position BP Location FiO2 (%) -- -- -- -- -- Height Height Method Weight Weight Method 06/26/24532 -- 06/26/24532 -- 1.651 m (5' 5 ) 114.8 kg (253 lb) Physical Exam Vitals and nursing note reviewed. Constitutional: General: She is not in acute distress. Appearance: She is well-developed. HENT: Head: Normocephalic and atraumatic. Nose: Nose normal. Eyes: Conjunctiva/sclera: Conjunctivae normal. Cardiovascular: Rate and Rhythm: Tachycardia present. Rhythm irregular. Pulmonary: Effort: Pulmonary effort is normal. Breath sounds: Normal breath sounds. Abdominal: Palpations: Abdomen is soft. Tenderness: There is no abdominal tenderness. Musculoskeletal: General: Normal range of motion. Cervical back: Normal range of motion and neck supple. Skin: General: Skin is warm. Findings: No rash. Neurological: Mental Status: She is alert and oriented to person, place, and time. Labs Reviewed CBC WITH AUTO DIFFERENTIAL - Abnormal Result Value WBC 11.5 (*) Hgb 12.8 Hct 38.6 Plt 187 MPV 9.7 RBC 3.88 (*) MCV 99.5 (*) MCH 33.0 MCHC 33.2 RDW CV 13.3 RDW SD 48.0 NRBC abs 0.00 COMPREHENSIVE METABOLIC PANEL - Abnormal Sodium 132 (*) Potassium, pl 4.7 Chloride 94 (*) CO2 24 Anion gap 14 BUN 18 Creatinine 0.94 Glucose 216 (*) Calcium 9.5 Bilirubin, total 0.8 Protein, pl 7.5 Albumin 3.5 Alk phos 151 (*) ALT 10 AST 28 DIFFERENTIAL AUTO - Abnormal Neutrophil abs 10.5 (*) Imm gran abs 0.1 Lymphocyte abs 0.4 (*) Monocyte abs 0.5 Eosinophil abs 0.0 Basophil abs 0.0 Neutrophil pct 92.0 Imm gran pct 0.6 Lymphocyte pct 3.1 Monocyte pct 4.0 Eosinophil pct 0.0 Basophil pct 0.3 URINALYSIS AND REFLEX TO MICROSCOPIC AND CULTURE LIPASE Lipase 11 EGFR eGFR 69 POCT GLUCOSE DEVICE POCT GLUCOSE DEVICE POCT GLUCOSE DEVICE POCT GLUCOSE DEVICE POCT GLUCOSE DEVICE CT Abdomen Pelvis W Contrast Final Result No acute intra-abdominal abnormality. Electronically signed by: Blaine Nash M.D. [facility] Medical Decision Making Problems Addressed: Gastroenteritis: acute illness or injury Amount and/or Complexity of Data Reviewed Labs: ordered. Radiology: ordered. ECG/medicine tests: ordered and independent interpretation performed. Risk Prescription drug management. 9:[address] Amos, who states that patient can be discharged and he will follow up in the clinic. Final diagnoses: Gastroenteritis Disposition: Discharge Condition: Stable Brianna Martinez MD 06/26/24 1323 * Melvi Menendez RN - 06/26/2024 5:31 AM CDT Pt bibems from home (where she lives with family) with CO vomiting and diarrhea for the past 2 days Pt discharged from [facility] within the last week. Mental delay but currently AOX4 documented in this encounter Miscellaneous Notes * ED Procedure Note - David Harman MD - 06/26/2024 7:11 AM CDTAssociated Order(s): ECG 12 lead Procedure ECG 12 lead Date/Time: 06/26/2024 7:11 AM Performed by: David Harman MD Authorized by: Brianna Martinez MD Rate: ECG rate: 115 Rhythm: Rhythm: atrial fibrillation Ectopy: Ectopy: none QRS: QRS axis: Left QRS intervals: Wide Conduction: Conduction: abnormal Abnormal conduction: complete LBBB ST segments: ST segments: Normal T waves: T waves: normal Other findings: Other findings: low voltage David Harman MD 06/26/24 0712 documented in this encounter Plan of Treatment Not on file documented as of this encounter Procedures Procedure Name Priority Date/Time Associated Diagnosis Comments POCT GLUCOSE DEVICE Routine 06/26/2024 1 :14 PM CDT HEMOGLOBIN AND HEMATOCRIT STAT 06/26/2024 12:39 PM CDT HEMOGLOBIN AND HEMATOCRIT STAT 06/26/2024 9:39 AM CDT POCT GLUCOSE DEVICE Routine 06/26/2024 9 :31 AM CDT URINALYSIS AND REFLEX TO MICROSCOPIC AND CULTURE STAT 06/26/2024 8:59 AM CDT URINALYSIS, MICROSCOPIC ONLY STAT 06/26/2024 8:[address] ABDOMEN PELVIS W CONTRAST ED 06/26/2024 7:49 AM CDT ECG 12-LEAD Routine 06/26/2024 5:44 AM CDT EGFR STAT 06/26/2024 5:42 AM CDT DIFFERENTIAL AUTO STAT 06/26/2024 5:4 2 AM CDT CBC WITH AUTO DIFFERENTIAL STAT 06/26/2024 5:42 AM CDT LIPASE STAT 06/26/2024 5:42 AM CDT COMPREHENSIVE METABOLIC PANEL STAT 06/26/2024 5:42 AM CDT documented in this encounter Results * POCT glucose (06/26/2024 1:14 PM CDT) [facility] Glucose, POC 171 70 - 199 mg/dL Blood 06/26/2024 1:14 PM CDT 06/26/2024 1:14 PM CDT Brianna Martinez MD LAB POCT ORDERABLES - DEVICE Fi nal Result [address] [address] [address] [place] [address] * Hemoglobin and hematocrit (06/26/2024 12:39 PM CDT) [facility] Hgb 12.1 11.9 - 15.5 g/dL Hct 37.3 35.6 - 45.5 % [facility] Blood 06/26/2024 12:3 9 PM CDT 06/26/2024 12:39 PM CDT Brianna Martinez MD LAB BLOOD ORDERABLES Final Resu lt [facility] [address] [address] [place], [place] [id number] * (ABNORMAL) Hemoglobin and hematocrit (06/26/2024 9:39 AM CDT) Hgb 11.4(L) 11.9 - 15.5 g/dL Hct 35.2(L) 35.6 - 45.5 % [facility] Blood 06/26/2024 9:39 AM CDT 06/26/2024 9:39 AM CDT Brianna Martinez MD LAB BLOOD ORDERABLES Final Resu lt Performing Organization Address [facility] Co de Phone Number [facility] [address] [address] [place], [place] [id number] * POCT glucose (06/26/2024 9:31 AM CDT) Pathologist [facility] Glucose, POC 183 70 - 199 mg/dL Blood 06/26/2024 9:31 AM CDT 06/26/2024 9:31 AM CDT Brianna Martinez MD LAB POCT ORDERABLES - DEVICE Fi nal Result Performing Organization Address [facility] Co de Phone Number [facility] [address] [address] [address] * (ABNORMAL) Urinalysis, microscopic only (06/26/2024 8:59 AM CDT) Pathologist [facility] WBC, ur 0-5 0 - 5 /HPF RBC, ur 11-20(A) 0 - 2 /HPF [facility] Epithelial cells, squamous, ur 1-5 0 - 5 /HPF [facility] Bacteria, ur 1+(A) [facility] Culture Reflex Comment Reflex conditions for urine culture (WBC >10) not met. [facility] Urine 06/26/2024 8:59 AM CDT 06/26/2024 9:01 AM CDT Brianna Martinez MD LAB URINE ORDERABLES Final Resu lt Performing Organization Address [facility] Co de Phone Number [facility] [address] [address] [place] [address] * (ABNORMAL) Urinalysis reflex to microscopic and culture Urine (06/26/2024 8:59 AM CDT) Color, ur Yellow Yellow Clarity, ur Clear Clear [facility] Specific gravity, ur >1.050(A) 1.003 - 1.030 [facility] pH, urine 5.0 [facility] Comment: Interpretive Data ? Urine pH is affected by diet, medications, systemic acid-base disturbances, and renal tubular function. ??pH may affect urinary stone formation. ??For example, urine pH below 6.0 may help reduce the tendency for calcium phosphate stones and pH greater than 6.0 may reduce the tendency for uric acid stone formation. Source: [facility] [place] Current Interpretive Data was last revised on 2017 Protein, ur ql Negative Negative [facility] Glucose, ur ql 4+(A) Negative [facility] Ketones, ur Trace Negative [facility] Bilirubin, ur Negative Negative [facility] Blood, ur 3+(A) Negative [facility] Urobilinogen, ur <2.0 <2.0 mg/dL [facility] Nitrite, ur Negative Negative [facility] Leukocyte esterase, ur Negative Negative [facility] UA reflex comment Reflex to microscopic UA will be performed. [facility] Urine 06/26/2024 8:59 AM CDT 06/26/2024 9:01 AM CDT Brianna Martinez MD LAB MICROBIOLOGY - [facility] Final Result Performing Organization Address City/State/[facility] Co de Phone Number [facility] [address] [address] [place] [address] * CT Abdomen Pelvis W Contrast (06/26/2024 7:49 AM CDT) Anatomical Region Laterality Modality Body N/A Computed Tomogra phy 06/26/2024 8:10 AM CDT Impressions 06/26/2024 8:10 AM CDT No acute intra-abdominal abnormality. Electronically signed by: Blaine Nash M.D. Narrative 06/26/2024 8:10 AM CDT EXAMINATION: CT ABDOMEN PELVIS W CONTRAST DATE: 06/26/2024 7:40 AM HISTORY: Abdominal pain, acute, nonlocalized TECHNIQUE: Images through the abdomen and pelvis were obtained following intravenous contrast administration. FINDINGS: The heart is enlarged. ??The patient is status post cholecystectomy. The liver, spleen, pancreas, kidneys and adrenal glands are normal. There is no hydronephrosis, hydroureter, free intraperitoneal air or fluid. ??There is no bowel obstruction. ??There are a few colonic diverticula. ??The appendix is not identified with confidence. ??The uterus is grossly normal. ??The abdominal aorta enhances normally. There is mild aortic atherosclerosis. ??Mild degenerative changes are noted in the spine. ??There is no adenopathy. Procedure Note Blaine Nash MD - 06/26/2024 EXAMINATION: CT ABDOMEN PELVIS W CONTRAST DATE: 06/26/2024 7:40 AM HISTORY: Abdominal pain, acute, nonlocalized TECHNIQUE: Images through the abdomen and pelvis were obtained following intravenous contrast administration. FINDINGS: The heart is enlarged. The patient is status post cholecystectomy. The liver, spleen, pancreas, kidneys and adrenal glands are normal. There is no hydronephrosis, hydroureter, free intraperitoneal air or fluid. There is no bowel obstruction. There are a few colonic diverticula. The appendix is not identified with confidence. The uterus is grossly normal. The abdominal aorta enhances normally. There is mild aortic atherosclerosis. Mild degenerative changes are noted in the spine. There is no adenopathy. IMPRESSION: No acute intra-abdominal abnormality. Electronically signed by: Blaine Nash M.D. Brianna Martinez MD [facility] [place] PROCEDURES Final Result * ECG 12 lead (06/26/2024 5:44 AM CDT) 06/26/2024 5:44 AM CDT Narrative [facility] - 06/26/2024 9:36 AM CDT Vent Rate: 115 bpm RR Interval: 520 msec MN Interval: 0 msec QRS Duration: 146 msec QT Interval: 375 msec QTC Interval: 443 msec P-R-T [place]: 0 - -50 - 96 degrees IMPRESSION: ATRIAL FIBRILLATION WITH RAPID VENTRICULAR RESPONSE and demand LEFT AXIS DEVIATION ??[QRS AXIS < -30] LEFT BUNDLE BRANCH BLOCK ??[120+ ms QRS DURATION, 80+ ms Q/S IN V1/V2, 85+ ms R IN I/aVL/V5/V6] ABNORMAL ECG Compared to prior EKG, heart rate has increased Electronically Signed By: Antonio Carlos MD Brianna Martinez MD ECG ORDERABLES Final Result [facility] * eGFR (06/26/2024 5:42 AM CDT) eGFR 69 >=60 mL/min/1. 73 m2 [...] interpretive data was last reviewed 2021. Blood 06/26/2024 5:42 AM CDT 06/26/2024 5:50 AM CDT Brianna Martinez MD LAB BLOOD ORDERABLES Final Resu lt [facility] [address] [address] [place] [address] * (ABNORMAL) Differential, auto (06/26/2024 5:42 AM CDT) Neutrophil abs 10.5(H) 1.5 - 6.5 K/cumm Imm gran abs 0.1 0.0 - 0.1 K/cumm [facility] Lymphocyte abs 0.4(L) 0.8 - 3.3 K[facility]umm [facility] Monocyte abs 0.5 0.2 - 0.8 K/cumm [facility] Eosinophil abs 0.0 0.0 - 0.5 K/cumm [facility] Basophil abs 0.0 0.0 - 0.1 K/cumm [facility] Neutrophil pct 92.0 % [facility] Comment: Consistent with previous result Interpretive Data Percent cell count reference ranges are not reported, since discordance with absolute values may lead to misinterpretation of CBC data. Current Interpretive Data was last revised on 2018. Imm gran pct 0.6 % [facility] Comment: Interpretive Data Percent cell count reference ranges are not reported, since discordance with absolute values may lead to misinterpretation of CBC data. Current Interpretive Data was last revised on 2018. Lymphocyte pct 3.1 % [facility] Comment: Interpretive Data Percent cell count reference ranges are not reported, since discordance with absolute values may lead to misinterpretation of CBC data. Current Interpretive Data was last revised on 2018. Monocyte pct 4.0 % [facility] Comment: Interpretive Data Percent cell count reference ranges are not reported, since discordance with absolute values may lead to misinterpretation of CBC data. Current Interpretive Data was last revised on 2018. Eosinophil pct 0.0 % [facility] Comment: Interpretive Data Percent cell count reference ranges are not reported, since discordance with absolute values may lead to misinterpretation of CBC data. Current Interpretive Data was last revised on 2018. Basophil pct 0.3 % [facility] Comment: Interpretive Data Percent cell count reference ranges are not reported, since discordance with absolute values may lead to misinterpretation of CBC data. Current Interpretive Data was last revised on 2018. Blood 06/26/2024 5:42 AM CDT 06/26/2024 5:50 AM CDT Brianna Martinez MD LAB BLOOD ORDERABLES Final Resu lt Performing Organization Address [facility] Co de Phone Number [facility] [address] [address] [facility] [place] [address] * Lipase (06/26/2024 5:42 AM CDT) Lipase 11 10 - 99 Units/L Blood (Blood, Venous) 06/26/2024 5:42 AM CDT 06/26/2024 5:50 AM CDT Brianna Martinez MD LAB BLOOD ORDERABLES Final Resu lt Performing Organization Address [facility] de Phone Number [facility] [address] [address] [place] [address] * (ABNORMAL) Comprehensive metabolic panel (06/26/2024 5:42 AM CDT) Sodium 132(L) 135 - 145 mmol/L Potassium, pl 4.7 3.3 - 4.9 mmol/L [facility] Chloride 94(L) 97 - 110 mmol/L [facility] CO2 24 22 - 32 mmol/L [facility] Anion gap 14 2 - 15 mmol/L [facility] BUN 18 6 - 25 mg/dL [facility] Creatinine 0.94 0.60 - 1.10 mg/dL [facility] Glucose 216(H) 70 - 199 mg/dL [facility] Comment: Interpretive Data Fasting glucose >/= 126 [...] Calcium 9.5 8.5 - 10.3 mg/dL [facility] Bilirubin, total 0.8 0.1 - 1.2 mg/dL [facility] Protein, pl 7.5 6.5 - 8.5 g/dL [facility] Albumin 3.5 3.5 - 5.0 g/dL [facility] Alk phos 151(H) 40 - 130 Units/L [facility] ALT 10 7 - 45 Units/L [facility] AST 28 10 - 45 Units/L [facility] Blood 06/26/2024 5:42 AM CDT 06/26/2024 5:50 AM CDT us Brianna Martinez MD LAB BLOOD ORDERABLES Final Resu lt [facility] [address] [address] [place] [address] * (ABNORMAL) CBC with auto differential (06/26/2024 5:42 AM CDT) WBC 11.5(H) 3.8 - 9.9 K/cumm Hgb 12.8 11.9 - 15.5 g/dL [facility] Hct 38.6 35.6 - 45.5 % [facility] Plt 187 150 - 400 K/cumm [facility] MPV 9.7 9.1 - 12.3 fL [facility] RBC 3.88(L) 3.90 - 5.20 M/cumm [facility] MCV 99.5(H) 81.3 - 96.4 fL [facility] MCH 33.0 27.1 - 33.3 pg [facility] MCHC 33.2 32.3 - 35.7 g/dL [facility] RDW CV 13.3 11.1 - 14.9 % [facility] RDW SD 48.0 35.7 - 48.1 fL [facility] NRBC abs 0.00 0.00 - 0.01 K/cumm [facility] Blood (Blood, Venous) 06/26/2024 5:42 AM CDT 06/26/2024 5:50 AM CDT us Brianna Martinez MD LAB [place] [address] [address] [place] [address] documented in this encounter Visit Diagnoses Diagnosis Gastroenteritis- Primary Other and unspecified noninfectious gastroenteritis and colitis documented in this encounter Administered Medications Inactive Administered Medications - up to 3 most recent administrations Medication Order MAR Action Action Date Dose Rate Site ioversoL (OPTIRAY 350) syringe 125 mL 125 mL, intravenous, Once in imaging, contrast, Starting on Tue06/26/24 at 0742, For 1 dose Contrast Given 06/26/2024 7:43 AM CDT 119 mL metoclopramide (REGLAN) 5 mg/mL injection 10 mg 10 mg, intravenous, Administer over 1 Minutes, Once, On Tue06/26/24 at 1330, For 1 dose Given 06/26/2024 1:44 PM CDT 10 mg midodrine (PROAMATINE) tablet 5 mg 5 mg, oral, Once, On Tue06/26/24 at 1103, For 1 dose, Indications: Symptomatic Orthostatic HypotensionIndications:Sympt omatic Orthostatic Hypotension Given 06/26/2024 11:08 AM CDT 5 mg ondansetron (ZOFRAN) injection 4 mg 4 mg, intravenous, Administer over 2 Minutes, Once, On Tue06/26/24 at 1309, For 1 dose Given 06/26/2024 1:10 PM CDT 4 mg sodium chloride 0.9% bolus 1,000 mL 1,000 mL, intravenous, Once, On Tue06/26/24 at 0740, For 1 dose New Bag 06/26/2024 7:58 AM CDT 1,000 mL documented in this encounter Active and Recently Administered Medications Times are shown in CDT. Scheduled Medication Order 06/24/2024 06/25/2024 06/26/2024 metoclopramide (REGLAN) 5 mg/mL injection 10 mg (COMPLETED) 10 mg, intravenous, Administer over 1 Minutes, Once, On Tue06/26/24 at 1330, For 1 dose 1344 (Given - Provid er: Little Romero RN) midodrine (PROAMATINE) tablet 5 mg (COMPLETED) 5 mg, oral, Once, On Tue06/26/24 at 1103, For 1 dose, Indications: Symptomatic Orthostatic Hypotension 1108 (Given - Provid er: Little Romero RN) ondansetron (ZOFRAN) injection 4 mg (COMPLETED) 4 mg, intravenous, Administer over 2 Minutes, Once, On Tue06/26/24 at 1309, For 1 dose 1310 (Given - Provid er: Little Romero RN) sodium chloride 0.9% bolus 1,000 mL (COMPLETED) 1,000 mL, intravenous, Once, On Tue06/26/24 at 0740, For 1 dose 0758 (New Bag - Prov ider: Little Romero RN)0924 (Stopped - Provider: Little Romero RN) sodium chloride 0.9% bolus 1,000 mL 1,000 mL, intravenous, Once, On Tue06/26/24 at 1330, For 1 dose 1353 (Hold - Provide r: Little Romero RN - Reason: Other - Comment: MD states not to give to due BP improving) PRN Medication Order 06/24/2024 06/25/2024 06/26/2024 ioversoL (OPTIRAY 350) syringe 125 mL (COMPLETED) 125 mL, intravenous, Once in imaging, contrast, Starting on Tue06/26/24 at 0742, For 1 dose 0743 (Contrast Given - Provider: Silvia Harper, RT) documented in this encounter Orders Medications Ordered That Didier ht Not Have Been Administered Count Last Ordered Date First Ordered Date sodium chloride 0.9% bolus 1,000 mL 1 06/26 documented in this encounter Care Teams Community Service Manager Relationship Specialty Start Date End Date Oswaldo Serrano MD [address] [address] PCP - General Family Medicine 04/14/18 [place] [id number] [address] Consulting Physician Cardiology 06/08/24 Sandro Hong MD [address] [place] [address] Referring Physician Cardiology 06/21/24 documented as of this encounter
--- OUTSIDE RECORDS SUMMARY | 2024-10-07 00:52 | XMS_ITS | Encounter Summary ---
Author Organization [facility] Healthcare Address [address] [place] [address] Care Team Providers Care Data Communications Analyst Name Role Phone Oswaldo Serrano MD Primary Care Provider [phone] Pastora Flores MD Unavailable Sandro Hong MD Unavailable Reason for Visit * Auth/Cert (Routine) Specialty Diagnoses / Procedures Referred By Contac t Referred To Contact Diagnoses Osteomyelitis (HCC) Lower Back Pain Procedures N/A Referral ID Status Reason Start Date Expiration Date Visits Re quested Visits Authorized [id number] 1 1 Encounter Details Date Type Department Care Team (Late st Contact Info) Description 07/10/2024 11:32 AM CDT Anesthesia Event [facility] [address] [place] [address] Robert Messer MD [address] [place] [address] Humphrey Leo CRNA [address] [place] [address] Anesthesia Record Procedure Summary Procedure Name Responsible Anesthesiologist Anesthesia Start Time Anesthesia Stop Time TRANSESOPHAGEAL ECHO (CHANCE) W DOPPLER/CF Robert Messer MD 07/10/24 1132 07/10/24 1237 Events Date Time Event Comment 07/10/2024 1132 An Start 1135 An Start Data 1144 Start Supplemental O2 1146 An Induction The patient was reevaluated immediately before moderate or deep sedation use and before anesthesia induction. 1151 Anesthesia Ready 1232 an stop data 1237 Handoff to RN I completed my handoff [...] disposition at the time of handoff: PACU 1237 An Stop Meds Name Total lidocaine (cardiac) syringe 2 % 100 mg propofol 80 mg propofol 414.77 mg phenylephrine 100 mcg/mL 100 mcg phenylephrine infusion (100 mcg/mL) 2.59 mg heparin in 0.45% sodium chlo ride 25,000 units/250 mL (100 units/mL) infusion (premix) 18.46 mL sodium chloride 0.9% infusion 126.33 mL * Agents Name O2% N2O O2 * Blood No blood administrations on file. Lines, Drains, and Airways Type Details Placement Removal Peripheral IV Placement Date: 06/11 05/02; Placement Time: 0000; Existing LDA Placed by: Other hospital; Orientation: Anterior, Left; Location: Hand; Removal Date: 07/21/24; Removal Time: 1400; Removal Reason: Occluded 07/06/24 0000 by Javed Ellsworth 07/21/24 1400 by Emily Root documented in this encounter Social History Tobacco Use Types Packs/Day Years Used Date Smoking Tobacco: Never Smokeless Tobacco: Never [employer] Utilities Answer Date Recorded In the past 12 months has [employer], oil, or water [email or web address] threatened to shut off services in your [...] week 07/07/2024 How often do you attend [facility] [employer] or restorationist services? Never 07/07/2024 Do you belong to any clubs o r organizations such as yazidi groups, unions, fraternal or athletic groups, or [...] any time in the past 12 m [facility], were you homeless or living in a prison (including now)? 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2 ??F) (Oral) Resp 20 SpO2 97% Anesthesia Post Evaluation Patient location during evaluation: PACU Patient participation: complete - patient participated Level of consciousness: fully awake Pain score: 0 Pain management: adequate Airway patency: adequate Cardiovascular status: acceptable Respiratory status: acceptable Hydration status: acceptable Pt is: normothermic Nausea/Vomiting status: none No notable events documented. Cosigned by Robert Messer MD at 07/10/2024 1:41 PM CDT * Anesthesia Preprocedure Evaluation - Robert Messer MD - 07/10/2024 11:12 AM CDT Images from the original note were not included. Anesthesia Evaluation Loretta Penn is a 63 y.o. female TRANSESOPHAGEAL ECHO (CHANCE) W DOPPLER/CF * No Diagnosis Codes entered * HISTORY Past Medical History Neurological + Dementia/mild cognitive impairment Cardiovascular + Hypertension + CHF LVEF: 30-40%. + Atrial fibrillation/flutter - + Pacemaker/ICD - Respiratory + Sleep apnea (JOSE) Pertinent negatives: non-smoker Renal / + Renal disease - CKD Endocrine / Other + Diabetes mellitus Patient Active Problem List Diagnosis Date Noted Osteomyelitis (HCC) 07/07/2024 Ventricular tachycardia ([facility]) 06/11/2024 Chronic diastolic congestive heart failure ([facility]) ([facility]) 06/11/2024 Endocarditis 06/11/2024 Urinary frequency 06/11/2024 Gastroesophageal reflux disease without esophagitis 06/11/2024 Paroxysmal atrial fibrillation ([facility]) ([facility]) 06/11/2024 Major depressive disorder 06/11/2024 CKD (chronic kidney disease) 06/11/2024 Traumatic hematoma of right upper arm 06/06/2024 Hypotension due to drugs 06/06/2024 SOB (shortness of breath) 05/30/2024 Acute on chronic systolic congestive heart failure ([facility]) ([facility]) 05/30/2024 Neck pain 05/30/2024 Hyponatremia 05/30/2024 Chronic a-fib ([facility]) ([facility]) 05/30/2024 Controlled type 2 diabetes mellitus with chronic kidney disease, with long-term current use of insulin ([facility]) 05/30/2024 Hypothyroidism 05/30/2024 JOSE (obstructive sleep apnea) 05/30/2024 Diabetes mellitus with hyperglycemia ([facility]) 05/30/2024 Endocarditis 05/29/2024 Past Medical History: Diagnosis Date A-fib ([facility]) ([facility]) CHF (congestive heart failure) ([facility]) ([facility]) Diabetes mellitus ([facility]) GERD (gastroesophageal reflux disease) Hypertension Intellectual [...] Status: Pharmacy Complete Set By: Ashley Travis RP at 07/09/2024 12:55 PM Taking? Last Dose [...] systolic blood pressure less than 90mmHg) multivit eavznjvo-igee-HD-calcium (THERA-M) 9 mg iron-400 mcg tablet -- [...] mg, oral, Q4H PRN, 650 mg at 07/08/24 1245 Carrier Fluids for Secondary Infusion - 0.9% Sodium Chloride, 30 mL, intravenous, PRN ceFAZolin (ANCEF) 2,000 mg/20 mL in sterile water (premix) 2,000 mg, 2,000 mg, intravenous, Q8H GALINA, 2,000 mg at 07/10/24 0532 cyclobenzaprine (FLEXERIL) tablet 5 mg, 5 mg, oral, TID PRN, 5 mg at 07/08/24 1245 dextrose gel in packet 15 g, 15 g, oral, Q15 Min PRN OR dextrose (D10W) 10% bolus 250 mL, 250 mL, intravenous, Q15 Min PRN escitalopram (LEXAPRO) tablet 10 mg, 10 mg, oral, Daily, 10 mg at 07/09/24 0844 furosemide (LASIX) tablet 40 mg, 40 mg, oral, Daily, 40 mg at 07/09/24 0844 glucagon injection 1 mg, 1 mg, intramuscular, Q30 Min PRN heparin 1,000 unit/mL injection 4,500 Units, 40 Units/kg, intravenous, Q6H PRN, 4,500 Units at 07/08/24 0637 OR heparin 1,000 unit/mL injection 9,100 Units, 80 Units/kg, intravenous, Q6H PRN heparin in 0.45% sodium chloride 25,000 units/250 mL (100 units/mL) infusion (premix), 0-33 Units/kg/hr, intravenous, Titrated, Last Rate: 17.04 mL/hr at 07/10/24830, 15 Units/kg/hr at 07/10/2431 insulin glargine (LANTUS, SEMGLEE) 100 unit/mL injection 18 Units, 18 Units, subcutaneous, QAM, 18 Units at 07/09/24842 insulin lispro (HumaLOG, ADMELOG) 100 unit/mL injection 0-4 Units, 0-4 Units, subcutaneous, Nightly, 2 Units at 07/09/242033 insulin lispro (HumaLOG, ADMELOG) 100 unit/mL injection 0-5 Units, 0-5 Units, subcutaneous, TID with meals, 3 Units at 07/09/241737 insulin lispro (HumaLOG, ADMELOG) 100 unit/mL injection 7 Units, 7 Units, subcutaneous, TID with meals, 7 Units at 07/09/241737 levothyroxine (SYNTHROID) tablet 75 mcg, 75 mcg, oral, Daily - 0600, 75 mcg at 07/10/24 0532 magnesium oxide (MAG-OX) tablet 400 mg, 400 mg, oral, Daily, 400 mg at 07/09/24843 metoprolol XL (TOPROL-XL) extended release tablet 50 mg, 50 mg, oral, Daily, 50 mg at 07/09/24843 mirabegron ER (MYRBETRIQ) extended release tablet 25 mg, 25 mg, oral, Daily, 25 mg at 07/09/24843 nortriptyline (PAMELOR) capsule 10 mg, 10 mg, oral, Daily, 10 mg at 07/09/24843 ondansetron ODT (ZOFRAN-ODT) disintegrating tablet 4 mg, 4 mg, oral, Q6H PRN OR ondansetron (ZOFRAN) injection 4 mg, 4 mg, intravenous, Q6H PRN pantoprazole DR (PROTONIX) extended release tablet 20 mg, 20 mg, oral, Daily, 20 mg at 07/09/24 0844 polyethylene glycol (MIRALAX) packet 17 g, 17 g, oral, Daily PRN potassium chloride ER (KLOR-CON) extended release tablet 30 mEq, 30 mEq, oral, Q4H, 30 mEq at 07/10/24 0734 ramelteon (ROZEREM) tablet 8 mg, 8 mg, oral, Nightly PRN, 8 mg at 07/10/24 0146 sacubitriL-valsartan (ENTRESTO) 24-26 mg tablet 1 tablet, 1 tablet, oral, BID, 1 tablet at 034 senna-docusate (PERICOLACE) 8.6-50 mg per tablet 1 tablet, 1 tablet, oral, BID, 1 tablet at 07/09/24 2034 sodium chloride 0.9% flush 0.5-20 mL, 0.5-20 mL, intra-catheter, Q8H GALINA, 10 mL at 07/10/24 0532 sodium chloride 0.9% flush 0.5-20 mL, 0.5-20 mL, intra-catheter, PRN sodium chloride 0.9% infusion, 30 mL/hr, intravenous, Continuous, Last Rate: 30 mL/hr at 07/10/24 0950, 30 mL/hr at 07/10/24 0950 spironolactone (ALDACTONE) split tablet 12.5 mg, 12.5 mg, oral, Daily, 12.5 mg at 07/09/24 1245 Social History Tobacco Use Smoking Status Never Smokeless Tobacco Never Alcohol Use: Not At Risk (06/01/2024) AUDIT-C Frequency of Alcohol Consumption: Never Average Number of Drinks: Patient does not drink Frequency of Binge Drinking: Never Substance and Sexual Activity Drug Use Not on file No family history on file. Vitals: 07/10/24 0700 07/10/24 0740 07/10/24 0905 BP: 100/60 113/59 Pulse: 83 94 91 Resp: 17 16 Temp: 36.4 ??C (97.5 ??F) 36.8 ??C (98.2 ??F) SpO2: 95% 95% PT: 07/07/2024: 16.0 sec (H) INR: 07/07/2024: 1.47 (H) APTT: 07/10/2024: 119 sec (H) Hgb A1C: 07/07/2024: 7.7 % (H) CBC RBC: 07/09/2024: 3.30 M/cumm (L) RDW: No results found for requested labs within last 30 days. MCHC: 07/09/2024: 32.3 g/dL MCH: 07/09/2024: 32.7 pg MCV: 07/09/2024: 101.2 fL (H) Hct: 07/09/2024: 33.4 % (L) Hgb: 07/09/2024: 10.8 g/dL (L) WBC: 07/09/2024: 7.6 K/cumm MPV: 07/09/2024: 9.8 fL Platelets: 07/09/2024: 333 K/cumm RDW CV: 07/09/2024: 14.2 % RDW Sd: 07/09/2024: 52.9 fL (H) BMP Glucose: 07/10/2024: 142 mg/dL Calcium: 07/09/2024: 9.1 mg/dL Sodium: 07/09/2024: 136 mmol/L Potassium: 07/09/2024: 3.5 mmol/L CO2: 07/09/2024: 33 mmol/L (H) Chloride: 07/09/2024: 99 mmol/L BUN: 07/09/2024: 16 mg/dL Creatinine: 07/09/2024: 1.04 mg/dL STOP-Bang Total Score: 4 Short Blessed Total Score: 19 DOS Physical Exam Medical history, medications, and allergies reviewed. Attestation: This PAT evaluation 07/10/2024. Airway Exam: Mallampati: II Cervical ROM: FROM TM distance: >4 Cardiovascular Exam: Rate: regular Rhythm: regular Dental Exam: Edentulous Current state: Patient's current state is cooperative. Anesthesia Plan ASA 3 My patient is approved for the Anesthesia Controlled Medication protocol when under care of a CAFETERIA MANAGER Planned anesthesia: MAC Informed Consent: Anesthesia plan and risks discussed with patient and sibling. Plan and Consent Comments: Discussed anesthetic plan with patient in the preop area, and also with her sister Anibal Moise onthe phone. All questions answered. Consent and Attending signature: I and/or my [...] MAR Action Action Date Dose Rate Site heparin in 0.45% sodium chloride 25,000 units/250 [...] by 3 (THREE) units/kg/hour , Indications: Venous ThrombosisIndications: Venous Thrombosis Rate/Dose Change 07/13/2024 7:25 AM CDT 15 Units/kg/hr 17.04 mL/hr New Bag 07/12/2024 4:18 PM CDT 14 Units/kg/hr 15.9 mL/h r Restarted 07/12/2024 7:16 AM CDT 14 Units/kg/hr 15.9 mL/h r lidocaine (cardiac) (XYLOCAINE) preservative free injection intravenous, As needed, Starting on Tue07/10/24 at 1146, Anesthesia Intra-op, Indications: Ventricular ArrhythmiasIndications:V entricular Arrhythmias Given 07/10/2024 11:46 AM CDT 100 mg phenylephrine (FILIPPO-SYNEPHRINE) 1 mg/10 mL (100 mcg/mL) in sodium chloride 0.9% (premix) intravenous, As needed, Starting on Tue07/10/24 at 1215, Anesthesia Intra-op Given 07/10/2024 12:15 PM CDT 100 mcg phenylephrine (FILIPPO-SYNEPHRINE) 5 mg/50 mL (100 mcg/mL) in sodium chloride 0.9% (premix) intravenous, Continuous PRN, Starting on Tue07/10/24 at 1146, Anesthesia Intra-op Rate/Dose Change 07/10/2024 12:27 PM CDT 0.2 mcg/kg/min 13.452 mL/hr Rate/Dose Change 07/10/2024 12:25 PM CDT 0.4 mcg/kg/min 26 .904 mL/hr Rate/Dose Change 07/10/2024 12:15 PM CDT 0.7 mcg/kg/min 47 .082 mL/hr propofoL (DIPRIVAN) 10 mg/mL IV intravenous, As needed, Starting on Tue07/10/24 at 1146, Anesthesia Intra-op Given 07/10/2024 11:55 AM CDT 20 mg Given 07/10/2024 11:50 AM CDT 20 mg Given 07/10/2024 11:46 AM CDT 40 mg propofoL (DIPRIVAN) 10 mg/mL IV intravenous, Continuous PRN, Starting on Tue07/10/24 at 1146, Anesthesia Intra-op Rate/Dose Change 07/10/2024 11:50 AM CDT 100 mcg/kg/min 67.26 mL/hr New Bag 07/10/2024 11:46 AM CDT 75 mcg/kg/min 50.445 mL /hr sodium chloride 0.9% infusion 30 mL/hr, intravenous, Continuous, Starting on Tue07/10/24 at 1015, Pre-Procedure (CV) Rate/Dose Change 07/10/2024 11:46 AM CDT 100 mL/hr Rate/Dose Verify 07/10/2024 11:32 AM CDT 30 mL/ hr New Bag 07/10/2024 9:50 AM CDT 30 mL/hr 30 mL/hr documented in this encounter Care Teams Data Communications Analyst Relationship Specialty Start Date End Date Oswaldo Serrano MD [address] [address] PCP - General Family Medicine 04/14/18 [place] [address] [address] Consulting Physician Cardiology 06/08/24 Sandro Hong MD [address] [place] [address] Referring Physician Cardiology 06/21/24 documented as of this encounter
--- OUTSIDE RECORDS SUMMARY | 2024-10-07 00:53 | XMS_ITS | Encounter Summary ---
Author Organization [facility] Healthcare Address [address] [place] [address] Care Team Providers Care Marketing Strategist Name Role Phone Oswaldo Serrano MD Primary Care Provider [phone] Reason for Visit * Auth/Cert (Routine) Specialty Diagnoses / Procedures Referred By Praful t Referred To Contact Diagnoses Endocarditis endocarditis Procedures na Referral ID Status Reason Start Date Expiration Date Visits Re quested Visits Authorized [id number] 1 1 Encounter Details Date Type Department Care Team (Late st Contact Info) Description 05/31/2024 8:19 AM CDT Anesthesia Event [facility] [address] [place] [address] Sourav Mccall MD [address] [place] [address] [place] [address] Anesthesia Record Procedure Summary Procedure Name Responsible Anesthesiologist Anesthesia Start Time Anesthesia Stop Time TRANSESOPHAGEAL ECHOCARDIOGRAM (Chest) Sourav Mccall MD 05/31/24 0819 05/31/24 0848 Events Date Time Event Comment 05/31/2024 0819 An Start 0819 An Start Data 0820 In Room 0826 Start Supplemental O2 0826 Patient Positioned Laterally 0827 Bite Block Placed 0828 An Induction The patient was reevaluated immediately before moderate or deep sedation use and before anesthesia induction. 0828 Anesthesia Ready 0841 Out of Room 0843 an stop data 0848 Handoff to RN I completed my handoff [...] Patient disposition at the time of handoff: No value filed. 0848 An Stop Meds Name Total lidocaine 2 % 100 mg etomidate 6 mg NS 0.9% 0 mL * Agents Name O2 * Blood No blood administrations on file. Lines, Drains, and Airways Type Details Placement Removal Peripheral IV Placement Date: 05/11 ; Placement Time: 2229; Catheter Size: 22 G; Orientation: Left, Posterior; Location: Hand; Site Prep: Chlorhexidine; Insertion Attempts: 1; Removal Date: 06/07/24; Removal Time: 1400 05/29/24 2230 by Onofre Chavez RN 06/07/24 1400 by Lawson Austin RN Peripheral IV Placement Date: 05/11 11/02; Placement Time: 0250; Catheter Size: 20 G; Orientation: Right; Location: Antecubital; Site Prep: Chlorhexidine; Removal Date: 06/07/24; Removal Time: 1400 05/30/24 0250 by Onofre Chavez RN 06/07/24 1400 by Lawson Austin RN documented in this encounter Social History Tobacco Use Types Packs/Day Years Used Date Smoking Tobacco: Never Smokeless Tobacco: Never [facility] [employer] Answer Date Recorded In the past 12 months has [employer], gas, oil, or water [employer] threatened to shut off services in your home? No 06/01/2024 Social Connection and Isolat ion Panel [NHANES] Answer Date Recorded In a typical week, how many times do you talk on the phone with family, friends, or neighbors? More than three times a week 06/01/2024 How often do you get togethe r with friends or relatives? More than three times a week 06/01/2024 How often do you attend chur ch or buddhist services? Never 06/01/2024 Do you belong to any clubs o r organizations such as alevism groups, unions, fraternal or athletic groups, or school groups? No 06/01/2024 How often do you attend meet ings of the clubs or organizations you belong to? Never 06/01/2024 Are you , , di vorced, , never , or living with a partner? 06/01/2024 AUDIT-C Answer Date Recorded Q1: How often [...] food, housing, medical care, and heating? Hard 06/01/2024 Hunger Vital Sign Answer Date Recorded Within the past 12 months, y ou worried that your food would run out before you got the money to buy more. Never true 06/01/20 24 Within the past 12 months, t he food you bought just didn't last and you didn't have money to get more. Never true 06/01/2024 PRAPARE - Transportation Answer Date Re corded In the past 12 months, has l ack of transportation kept you from medical appointments or from getting medications? No 05/11 In the past 12 months, has l ack of transportation kept you from meetings, work, or from getting things needed for daily living? No 06/01/2024 Housing Stability Vital Sign Answer Charlie e Recorded In the last 12 months, was t here a time when you were not able to pay the mortgage or rent on time? No 06/01/2024 In the past 12 months, how m any times have you moved where you were living? 0 06/01/2024 At any time in the past 12 m [facility], were you homeless or living in a fpc (including now)? 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 Gender Identity Not on file Sexual Orientation Not on file documented as of this encounter OR Notes * Anesthesia Postprocedure Evaluation - Sourav Mccall MD - 05/31/2024 4:55 PM CDT Patient: Loretta Penn Procedure Summary Date: 05/31/24 Room / Location: ENDOSCOPY ROOM 4 / ENDOSCOPY Anesthesia Start: 818 Anesthesia Stop: 847 Procedures: TRANSESOPHAGEAL ECHOCARDIOGRAM (Chest) CARDIOVERSION (Left: Chest) Diagnosis: Acute bacterial endocarditis (Acute bacterial endocarditis [I33.0]) Providers: Jasper Mcfarland MD Responsible Provider: Sourav Mccall MD Anesthesia Type: general TIVA ASA Status: 4 Anesthesia Type: general TIVA Last vitals BP 122/72 (BP Location: Left arm, Patient Position: Lying) Pulse 77 Temp 37.1 ??C (98.8 ??F) (Oral) Resp 20 SpO2 90% Anesthesia Post Evaluation Patient location during evaluation: PACU Patient participation: complete - patient cannot participate Level of consciousness: fully awake Pain score: 0 Pain management: adequate Airway patency: patent Cardiovascular status: hemodynamically stable Respiratory status: room air Hydration status: euvolemic Pt is: normothermic Nausea/Vomiting status: none No notable events documented. * Anesthesia Preprocedure Evaluation - Sourav Mccall MD - 05/31/2024 7:20 AM CDT Images from the original note were not included. Anesthesia Evaluation Loretta Penn is a 63 y.o. female TRANSESOPHAGEAL ECHOCARDIOGRAM (Chest) CARDIOVERSION (Left: Chest) Pre-Op Diagnosis Codes: * Acute bacterial endocarditis [I33.0] HISTORY Past Medical History Neurological + Dementia/mild cognitive impairment (intellectual disability) Cardiovascular + Hypertension + CHF LVEF: 20-30%. + Current valvular disease - MR - mild-moderate; TR - mild-moderate. + Atrial fibrillation/flutter - + Pacemaker/ICD - dual lead ICD (atrioventricular, w/pacing functions). Brand: [employer]. Year inserted / last revised: 05/2017. Pacemaker dependent: unknown Respiratory + Sleep apnea (JOSE) Prescribed device: CPAP and PAP occasionally compliant. + Pulmonary hypertension Echo PA systolic: 42. Hepatic / Heme + History of anemia Gastrointestinal + GERD - on daily therapy. Asymptomatic. Renal / Renal/ system: negative Musculoskeletal/Pain Musculoskeletal/Pain system: negative Endocrine / Other + Diabetes mellitus - Diabetes type 2. + Thyroid disease - hypothyroidism + Obesity (BMI >30)- morbid obesity (BMI>40). + Infectious disease (Endocarditis, bactermia) Functional Capacity Functional capacity: <4 METs Patient Active Problem List Diagnosis Date Noted SOB (shortness of breath) 05/30/2024 Acute on chronic systolic congestive heart failure ([facility] ([facility]) 05/30/2024 Neck pain 05/30/2024 Hyponatremia 05/30/2024 Chronic a-fib ([facility] ([facility]) 05/30/2024 Type 2 diabetes mellitus, with long-term current use of insulin ([facility]) 05/30/2024 Hypothyroid 05/30/2024 JOSE (obstructive sleep apnea) 05/30/2024 Diabetes mellitus with hyperglycemia ([facility]) ([facility]) 05/30/2024 Endocarditis 05/29/2024 Past Medical History: Diagnosis Date A-fib ([facility] ([facility]) CHF (congestive heart failure) ([facility] ([facility]) Diabetes mellitus ([facility]) GERD (gastroesophageal reflux disease) Hypertension Intellectual disability OAB (overactive bladder) Sleep apnea Thyroid disease Past Surgical History: Procedure Laterality Date CARDIAC DEFIBRILLATOR PLACEMENT CHOLECYSTECTOMY INSERT / REPLACE / REMOVE PACEMAKER OTHER SURGICAL HISTORY 05/31/2024 CHANCE/CARDIOVERSION OB History No obstetric history on file. Allergies Allergen Reactions Sulfa (Sulfonamide Antibiotics) Med List Status: Pharmacy Complete Set By: Angel Chaudhry [facility] at 05/30/2024 3:34 PM Taking? Last Dose Start Date End Date Provider albuterol HFA (PROVENTIL HFA,VENTOLIN HFA,PROAIR HFA) 90 mcg/actuation inhaler -- -- -- Nica Muniz MD BASAGLAR 100 unit/mL (3 mL) pen for injection -- 02/09/24 -- Nica Muniz MD carvediloL (COREG) 25 mg tablet -- 05/06/17 -- Nica Muniz MD cholecalciferol (VITAMIN D-3) 5,000 unit tablet -- -- -- Nica Muniz MD dilTIAZem (CARDIZEM) 30 mg tablet -- 04/28/17 -- Nica Muniz MD docusate sodium (COLACE) 100 mg capsule -- 09/23/17 -- Nica Muniz MD Entresto 24-26 mg tablet -- 09/11/21 -- ProviderNica MD escitalopram (LEXAPRO) 10 mg tablet -- 12/12/23 -- Nica Muniz MD Farxiga 10 mg tablet -- 06/01/22 -- Nica Muniz MD ferrous sulfate 325 mg (65 mg of elemental iron) tablet -- -- -- Nica Muniz MD fluticasone propionate (FLONASE) 50 mcg/actuation nasal spray -- -- -- Nica Muniz MD furosemide (LASIX) 40 mg tablet -- 04/02/24 -- Nica Muniz MD Gemtesa 75 mg tablet -- -- -- Nica Muniz MD levothyroxine (SYNTHROID) 75 mcg tablet -- -- -- Nica Muniz MD multivit cpcckxom-vkzi-PP-calcium (THERA-M) 9 mg iron-400 mcg tablet -- -- -- Nica Muniz MD nortriptyline (PAMELOR) 10 mg capsule -- 05/18/24 -- Nica Muniz MD NovoLOG 100 unit/mL (3 mL) pen for injection -- 07/18/23 -- Cristy, MD Nica omeprazole (PriLOSEC) 20 mg capsule -- -- -- Nica Muniz MD potassium chloride ER 20 mEq CR tablet -- 01/20/24 -- Nica Muniz MD Xarelto 20 mg tablet -- -- -- Nica Muniz MD Current Facility-Administered Medications: [Transfer Hold] carvediloL (COREG) tablet 6.25 mg, 6.25 mg, oral, BID with meals (bkfst, dinner), 6.25 mg at 05/30/24 1723 [Transfer Hold] ceFAZolin (ANCEF) 2,000 mg/100 mL in dextrose (premix) 2,000 mg, 2,000 mg, intravenous, Q8H GALINA, Last Rate: 200 mL/hr at 05/31/24 0533, 2,000 mg at 05/31/24 0533 [Transfer Hold] dextrose oral liquid liquid 15 g, 15 g, oral, Q15 Min PRN OR [Transfer Hold] dextrose (D10W) 10% bolus 250 mL, 250 mL, intravenous, Q15 Min PRN [Transfer Hold] dilTIAZem (CARDIZEM) tablet 30 mg, 30 mg, oral, TID, 30 mg at 05/30/242200 [Transfer Hold] docusate sodium (COLACE) capsule 100 mg, 100 mg, oral, BID PRN [Transfer Hold] dofetilide (TIKOSYN) capsule 500 mcg, 500 mcg, oral, BID, 500 mcg at 05/30/24 2200 [Transfer Hold] escitalopram (LEXAPRO) tablet 10 mg, 10 mg, oral, Daily, 10 mg at 05/30/24 0958 [Transfer Hold] ferrous sulfate delayed release tablet 65 mg of elemental iron, 65 mg of elemental iron, oral, Daily with breakfast, 65 mg of elemental iron at 05/30/24 0958 [Transfer Hold] furosemide (LASIX) 10 mg/mL injection 40 mg, 40 mg, intravenous, BID DIURETIC, 40 mg at 05/30/24 1626 [Transfer Hold] glucagon injection 1 mg, 1 mg, intramuscular, Q30 Min PRN [Transfer Hold] HYDROcodone-acetaminophen (NORCO) 5-325 mg per tablet 1 tablet, 1 tablet, oral, QIDPRN, 1 tablet at 05/31/24 0235 [Transfer Hold] insulin glargine (LANTUS, SEMGLEE) 100 unit/mL injection 14 Units, 14 Units, subcutaneous, QAM, 14 Units at 05/30/24 1313 [Transfer Hold] insulin lispro (HumaLOG, ADMELOG) 100 unit/mL injection 0-4 Units, 0-4 Units, subcutaneous, Nightly, 2 Units at 05/30/242158 [Transfer Hold] insulin lispro (HumaLOG, ADMELOG) 100 unit/mL injection 0-5 Units, 0-5 Units, subcutaneous, TID with meals, 1 Units at 05/30/24 1723 [Transfer Hold] insulin lispro (HumaLOG, ADMELOG) 100 unit/mL injection 5 Units, 5 Units, subcutaneous, TID with meals [Transfer Hold] levothyroxine (SYNTHROID) tablet 75 mcg, 75 mcg, oral, Daily - 0600, 75 mcg at 05/31/24 0533 [Transfer Hold] nortriptyline (PAMELOR) capsule 10 mg, 10 mg, oral, Nightly, 10 mg at 05/30/242158 [Transfer Hold] ondansetron (ZOFRAN) injection 4 mg, 4 mg, intravenous, Q6H PRN [Transfer Hold] pantoprazole DR (PROTONIX) extended release tablet 40 mg, 40 mg, oral, Daily, 40 mgat 05/30/24 0958 [Transfer Hold] polyethylene glycol (MIRALAX) packet 17 g, 17 g, oral, Daily PRN [Transfer Hold] rivaroxaban (XARELTO) tablet 20 mg, 20 mg, oral, Daily with dinner, 20 mg at 05/30/24 1723 FOLLOWED BY [DISCONTINUED] rivaroxaban (XARELTO) tablet 20 mg, 20 mg, oral, Daily with dinner [Transfer Hold] sacubitriL-valsartan (ENTRESTO) 24-26 mg tablet 1 tablet, 1 tablet, oral, BID, 1 tablet at 05/30/242158 Social History Tobacco Use Smoking Status Never Smokeless Tobacco Never Alcohol Use: Unknown (05/30/2024) AUDIT-C Frequency of Alcohol Consumption: Not on file Average Number of Drinks: Patient does not drink Frequency of Binge Drinking: Not on file Substance and Sexual Activity Drug Use Not on file No family history on file. Vitals: 05/31/24 0358 05/31/24 0400 05/31/24 0759 BP: 113/70 130/87 Pulse: 83 83 85 Resp: 18 27 Temp: 36.8 ??C (98.2 ??F) SpO2: 92% 98% PT: 05/29/2024: 15.4 sec (H) INR: 05/29/2024: 1.42 (H) APTT: 05/29/2024: 28 sec Hgb A1C: No results found for requested labs within last 30 days. CBC RBC: 05/31/2024: 3.64 M/cumm (L) RDW: No results found for requested labs within last 30 days. MCHC: 05/31/2024: 32.2 g/dL (L) MCH: 05/31/2024: 32.7 pg MCV: 05/31/2024: 101.6 fL (H) Hct: 05/31/2024: 37.0 % Hgb: 05/31/2024: 11.9 g/dL WBC: 05/31/2024: 7.9 K/cumm MPV: 05/31/2024: 9.7 fL Platelets: 05/31/2024: 309 K/cumm RDW CV: 05/31/2024: 14.5 % RDW Sd: 05/31/2024: 53.9 fL (H) BMP Glucose: 05/31/2024: 185 mg/dL Calcium: 05/31/2024: 8.6 mg/dL Sodium: 05/31/2024: 132 mmol/L (L) Potassium: 05/31/2024: 4.8 mmol/L CO2: 05/31/2024: 26 mmol/L Chloride: 05/31/2024: 94 mmol/L (L) BUN: 05/31/2024: 14 mg/dL Creatinine: 05/31/2024: 0.69 mg/dL TTE 05/30/24: Technically difficult study with limited views. Mild [...] to moderate tricuspid regurgitation. Trivial pericardial effusion. EKG 05/30/24: ATRIAL FIBRILLATION WITH ABERRANT CONDUCTION OR VENTRICULAR PREMATURE COMPLEXES INTRAVENTRICULAR CONDUCTION DELAY [130+ ms QRS DURATION] ABNORMAL ECG CT chest 05/30/24: 1. Redemonstrated curvilinear radiopaque density extending from the proximal right lower lobe pulmonary artery into a subsegmental lateral basilar branch favors a catheter or wire fragment. 2. Findings most suggestive of heart failure with cardiomegaly, small volume pericardial effusion, and small bilateral pleural effusions and mild pulmonary edema. CXR 05/2024: There are diffuse interstitial and airspace opacities compatible with moderate pulmonary edema. Likely small effusions. Heart is enlarged. There is a curvilinear density projecting over the right lower lung which corresponds to a catheter or wire in the right lower lobe pulmonary arteries when correlated with the CT examination. This finding is not present on the prior 2017 examination. The presence of this finding was discussed by Dr. Abernathy with Dr. Hollis and documented by Dr. Hollis in the medical record on 05/30/2024 at 457. DOS Physical Exam Medical history, medications, and allergies reviewed. Attestation: I endorse the findings of the anesthesia pre-evaluation assessment dated: 05/31/2024. Airway Exam: Mallampati: II Cervical ROM: FROM TM distance: normal Cardiovascular Exam: Rate: regular Rhythm: regular Pulmonary Exam: LCTA, bilat EENT Exam: trachea midline Dental Exam: Edentulous Skin Exam: Skin is warm. Current state: Patient's current state is cooperative and confused. Anesthesia Plan ASA 4 Planned anesthesia: General TIVA Induction: Induction: intravenous. Postoperative Plan: No plan for postoperative opioid use. No postoperative mechanical ventilation intended. Patient's planned disposition post procedure is Floor. Informed Consent: Discussed plan with attending, AA and INBOUND CUSTOMER SERVICE AGENT. Anesthesia plan and risks discussed with sibling. Consent and Attending signature: I and/or my [...] MAR Action Action Date Dose Rate Site etomidate (AMIDATE) injection intravenous, Administer over 1 Minutes, As needed, Starting on Rowena 05/31/24 at 0828, Anesthesia Intra-op Given 05/31/2024 8:28 AM CDT 6 mg lidocaine (PF) (XYLOCAINE) 20 mg/mL (2 %) preservative free injection intravenous, As needed, Starting on Rowena 05/31/24 at 0828, Anesthesia Intra-op Given 05/31/2024 8:28 AM CDT 100 mg sodium chloride 0.9% infusion intravenous, Continuous PRN, Starting on Rowena 05/31/24 at 0824, Anesthesia Intra-op New Bag 05/31/2024 8:24 AM CDT documented in this encounter Care Teams Marketing Strategist Relationship Specialty Start Date End Date Oswaldo Serrano MD [address] [address] PCP - General Family Medicine 04/14/18 documented as of this encounter
--- OUTSIDE RECORDS SUMMARY | 2024-10-07 00:53 | XMS_ITS | Encounter Summary ---
Author Organization [facility] Healthcare Address [address] [place] [address] Care Team Providers Care Medical Billing And Coding Specialist Name Role Phone Oswaldo Serrano MD Primary Care Provider [phone] Pastora Flores MD Unavailable Lizzie Hong MD Unavailable Reason for Visit * Auth/Cert (Routine) Specialty Diagnoses / Procedures Referred By Contac t Referred To Contact Diagnoses Ventricular tachycardia (HCC) V-tach---step down with tele Procedures na Referral ID Status Reason Start Date Expiration Date Visits Re quested Visits Authorized [id number] 1 1 Encounter Details Date Type Department Care Team (Latest Contact Info) Description 06/10/2024 11:41 PM CDT - 06/21/2024 4:48 PM CDT [place] [address] Dilan Palmer MD [address] [place] [id number] Coleen Samuels MD [id number] [place], [place] [id number] Mell Curran [id number] [place] [id number] [place] [id number] [address] Ventricular tachycardia (HCC) (Primary Dx); Chronic diastolic congestive heart failure (CMS/HCC) (HCC) Discharge Disposition: Discharge to home or self care Social History Tobacco Use Types Packs/Day Years Used Date Smoking Tobacco: Never Smokeless Tobacco: Never [facility] Utilities Answer Date Recorded In the past 12 months has [employer] electric, gas, oil, or water company [...] often do you attend chur ch or druze services? Never 06/12/2024 Do you belong to any clubs o r organizations such as congregational groups, unions, fraternal or athletic groups, or [...] any time in the past 12 m [facility], were you homeless or living in a snf (including now)? 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 Gender Identity Not on file Sexual Orientation Not on file documented as of this encounter Last Filed Vital Signs Vital Sign Reading Time Taken Comments Blood Pressure 121/73 06/21/2024 11:55 AM CDT Pulse 91 06/21/2024 11:55 AM CDT Temperature 36.2 ??C (97.1 ??F) 06/21/2024 1 1:55 AM CDT Respiratory Rate 18 06/21/2024 11:5 5 AM CDT Oxygen Saturation 95% 06/21/2024 11: 55 AM CDT Inhaled Oxygen Concentration - - Weight 115.1 kg (253 lb 11.2 oz) 06/11/2024 1:45 AM CDT Height 165.1 cm (5' 5 ) 06/11/2024 1:45 AM CDT Body Mass Index 42.22 06/11/2024 1:45 AM CDT documented in this encounter Discharge Summaries * Nancy Hartley MD - 06/21/2024 4:24 PM CDT Inpatient Discharge Summary Patient Name - Lei Rodriguez Patient Age - 63 yrs Patient - [id number] [facility] - [id number] Document Creation Date: 06/21/2024 Admitting Provider, MD: Dilan Palmer MD Discharge Provider, MD: Nancy Hartley MD Primary Care Physician at Discharge: Oswaldo Serrano MD [phone] Admission Date: 06/10/2024 Discharge Date/time: 06/21/2024 Admission Location: [facility] LOS - LOS: 10 days DETAILS OF HOSPITAL STAY Hospital Problems/Diagnoses Principal Problem: Ventricular tachycardia (HCC) Active Problems: Controlled type 2 diabetes mellitus with chronic kidney disease, with long-term current use of insulin (HCC) Hypothyroidism Hypotension due to drugs Chronic diastolic congestive heart failure (CMS/HCC) (HCC) Endocarditis Urinary frequency Gastroesophageal reflux disease without esophagitis Paroxysmal atrial fibrillation ([facility]/HCC) ([facility]) Major depressive disorder CKD (chronic kidney disease) Reason for Hospitalization: 63 y.o. female with a PMHx significant for A-fib, CHF, DM II, GERD, HTN, Intellectual disability, OAB, Sleep apnea, thyroid disease and endocarditis Patient presents to ED with chief complaint of Syncope and fall. HPI: patient from nursing facility [facility]. Patient daughter was visiting and reported that patient began to have nausea and vomiting 1215 p. Daughter noted that patient was shaky andholding head as if she had a headache. Patient had episode of vomiting and then had syncopal event falling forward and hitting her head. Patient did not remember the fall only feeling dizzy/lightheaded prior. Patient reported chest pain and headache. EMS was called and patient was transported to [facility]. EMS reported episode of Vtach in route. Patient AICD was interrogated and 5 discharges were noted. Patient was transferred to [facility] for higher level of care. Patient daughter did not come to [facility] with her. Patient at baseline is A+Ox4 with slow responses. Patient does not have much recall of the incident. Patient had CT of head, cervical spine, abdomen and pelvis at [place] with no acute findings. Patient was recently admitted 05/29/24-06/08/24 for endocarditis and is still on Ancef 2 g every 8 hours. Hospital Course: VFib. ICD placed; planning for Bi V ICD after completing antibiotics; Continue medications; discussed with cardiology cleared for discharge from their standpoint; follow-up outpatient. Endocarditis. due to presence of AICD; Patient completed antibiotic today per ordered; PICC line is removed prior to discharge; discussed with staff. Persistent atrial fibrillation. Patient is on Tikosyn 500 mcg b.i.d. with plans to cardiovert at later date; on Xarelto for anticoagulation; Clot and LA ; probably an appendage clot; hence synchronized cardioversion was canceled. Need to follow-up with EP outpatient. Discussed with Cardiology who is recommending to continue to hold [place] on discharge. Advised patient to follow-up outpatient. chronic systolic congestive Heart failure. EF of 30%; on Entresto; compensated; T2 dm; continue with insulin; fingersticks blood sugar has been stable; DC home with long-acting insulin 18 units daily; short-acting insulin 8 units t.i.d. with sliding scale; fingersticks blood sugar has been stable; Hypothyroidism. Patient is on levothyroxine; Depression. Patient on Lexapro; and nortriptyline. History of intellectual disability/developmental delay. Sister is at bedside; Discharge Details Physical Exam at Discharge: Discharge Condition: fair Pulse: 91 Resp: 18 BP: 121/73 Temp: 36.2 ??C (97.1 ??F) Weight: 115.1 kg (253 lb 11.2 oz) Pertinent Exam Findings at Discharge: No abnormal findings AAOX3 Bruising is fading on face On RA No swelling Abdomen: soft/nt/nd. Extremities: moving all four Discharge Disposition: Discharge to home or self care Code Status at Discharge: Full Code Active Issues & Recommended Plan for Follow-up: Allergies: Sulfa (sulfonamide antibiotics) Discharge Medications: Your medication list START taking these medications Instructions Last Dose Given Next Dose Due insulin lispro 100 unit/mL pen for injection Doctor's comments: OK combine base prandial & SSI orders. May sub alternate covered rapid-acting insulin in pen/vial. If sub vial, OK sub appropriate volume SUBQ syringe. If sub pen, OK sub appropriately sized pen needles. Commonly known as: HumaLOG Inject 8 Units under the skin 3 (three) times a day with meals (plus blood glucose mg/dL 150-199: 2units, 200-249: 4 units, 250-299: 6 units, 300-349: 8 units, 350 or greater: 10 units. Notify provider for blood glucose greater than 299 mg/dL. Max daily dose 60) Refer to After Visit Summary for Sliding Scale Insulin Instructions. magnesium oxide 400 mg (241.3 mg elemental magnesium) tablet Commonly known as: MAG-OX Start taking on: June 22, 2024 Take 1 tablet (400 mg total) by mouth daily metoprolol XL 50 mg extended release tablet Commonly known as: TOPROL-XL Start taking on: June 22, 2024 Take 1 tablet (50 mg total) by mouth daily pen needle, diabetic 32 gauge x 5/32 needle Doctor's comments: May substitute one size up or down as is available. Use as directed 3 times a day. CHANGE how you take these medications Instructions Last Dose Given Next Dose Due Entresto 24-26 mg tablet Generic drug: sacubitriL-valsartan What changed: how much to take Take 0.5 tablets by mouth 2 (two) times a day midodrine 5 mg tablet Commonly known as: PROAMATINE What changed: when to take this reasons to take this Take 1 tablet (5 mg total) by mouth 2 (two) times a day as needed (if systolic blood pressure less than 90mmHg) CONTINUE taking these medications Instructions Last Dose Given Next Dose Due albuterol HFA 90 mcg/actuation inhaler Commonly known as: PROVENTIL HFA,VENTOLIN HFA,PROAIR HFA Inhale 2 puffs every 6 (six) hours as needed for wheezing BASAGLAR 100 unit/mL (3 mL) pen for injection Generic drug: insulin glargine Inject 18 Units under the skin daily cholecalciferol 5,000 unit tablet Commonly known as: VITAMIN D-3 Take 1 tablet (5,000 Units total) by mouth daily docusate sodium 100 mg capsule Commonly known as: COLACE Take 1 capsule (100 mg total) by mouth 2 (two) times a day escitalopram 10 mg tablet Commonly known as: LEXAPRO Take 1 tablet (10 mg total) by mouth daily Farxiga 10 mg tablet Generic drug: dapagliflozin propanediol Take 1 tablet (10 mg total) by mouth daily ferrous sulfate 325 mg (65 mg of elemental iron) tablet Take 1 tablet (325 mg total) by mouth daily with breakfast fluticasone propionate 50 mcg/actuation nasal spray Commonly known as: FLONASE Administer 1 spray into each nostril daily as needed for rhinitis Gemtesa 75 mg tablet Generic drug: vibegron Take 1 tablet by mouth daily levothyroxine 75 mcg tablet Commonly known as: SYNTHROID Take 1 tablet (75 mcg total) by mouth every morning multivit jjcezkdj-fcte-QS-calcium 9 mg iron-400 mcg tablet Commonly known as: THERA-M Take 1 tablet by mouth daily nortriptyline 10 mg capsule Commonly known as: PAMELOR Take 1 capsule (10 mg total) by mouth daily omeprazole 20 mg capsule Commonly known as: PriLOSEC Take 1 capsule (20 mg total) by mouth daily potassium chloride ER 20 mEq CR tablet Commonly known as: KLOR-CON Take 1 tablet (20 mEq total) by mouth daily Xarelto 20 mg tablet Generic drug: rivaroxaban Take 1 tablet (20 mg total) by mouth daily with dinner STOP taking these medications carvediloL 25 mg tablet Commonly known as: COREG ceFAZolin 2,000 mg/100 mL IVPB Commonly known as: ANCEF dilTIAZem 30 mg tablet Commonly known as: CARDIZEM dofetilide 500 mcg capsule Commonly known as: TIKOSYN furosemide 40 mg tablet Commonly known as: LASIX HYDROcodone-acetaminophen 5-325 mg per tablet Commonly known as: NORCO NovoLOG 100 unit/mL (3 mL) pen for injection Generic drug: insulin aspart Where to Get Your Medications These medications were sent to [id number] - [place], [place] - [facility] [facility] [place] [address] [address], [facility] [id number] insulin lispro 100 unit/mL pen for injection magnesium oxide 400 mg (241.3 mg elemental magnesium) tablet metoprolol XL 50 mg extended release tablet midodrine 5 mg tablet pen needle, diabetic 32 gauge x 5/32 needle Information about where to get these medications is not yet available Ask your nurse or doctor about these medications Entresto 24-26 mg tablet Time Spent in Discharge Process: I have spent 39 minutes on discharge planning activities. Time spent was on Coordination of care, Counselling with patient/family, discharge exam, parent/patient education, and Other provider communication Test Results Pending at Discharge (If Blank, None Found): Operative Procedures Performed (If Blank, None Found): Outpatient Follow-Up: Contact Information for Follow-ups Oswaldo Serrano MD Specialty: Family Medicine Relationship: PCP - General [address] [place] [address] Next Steps: Follow up Comments: Call office to follow up with PCP in 5-7 days; please bring all home medications to appointment Questions: To provider: OSWALDO SERRANO Alok, MD Specialty: Cardiology, Internal Medicine, Interventional Cardiology, Cardiovascular Disease Relationship: [place]erring [place] [address] Next Steps: Follow up Comments: Call office to follow-up with cardiology/roustabout supervisor outpatient. Questions: To provider: LIZZIE HONG Please schedule an appointment with the following provider(s): Oswaldo Serrano MD [address] [place] [address] Lizzie Hong MD [address] [facility] [address] ANCILLARY INFORMATION Other Procedures & Diagnostic Tests: No results found. Recent Labs: Recent Labs Lab Units 06/20/24 0034 WBC K/cumm 5.9 HEMOGLOBIN g/dL 12.1 HEMATOCRIT % 38.5 PLATELETS K/cumm 269 Recent Labs Lab Units 06/20/24 0034 WBC K/cumm 5.9 HEMOGLOBIN g/dL 12.1 HEMATOCRIT % 38.5 PLATELETS K/cumm 269 NEUTROS PCT % 60.4 LYMPHS PCT % 25.3 MONOS PCT % 10.2 EOS PCT % 2.6 Recent Labs Lab Units 06/21/24 1150 06/21/24 0657 06/21/24 0116 06/20/24 0636 06/20/24 0034 06/19/24 0629 06/19/24 0429 SODIUM mmol/L -- -- 135 -- 140 -- 138 POTASSIUM PLASMA mmol/L -- -- 4.5 -- 3.9 -- 3.9 CHLORIDE mmol/L -- -- 98 -- 103 -- 101 CO2 mmol/L -- -- 25 -- 27 -- 25 BUN SERUM mg/dL -- -- 17 -- 16 -- 17 CREATININE mg/dL -- -- 0.82 -- 0.80 -- 0.70 [id number] mL/min/1.73 m2 -- -- 81 -- 83 -- >90 GLUCOSE mg/dL -- -- 218* -- 148 -- 132 POC GLUCOSE MONITOR mg/dL 226* < > -- < > -- < > -- CALCIUM mg/dL -- -- 9.6 -- 9.1 -- 9.2 ALBUMIN g/dL -- -- 3.8 -- 3.2* -- 3.2* PHOSPHORUS PLASMA mg/dL -- -- 3.7 -- 4.4 -- 4.0 < > = values in this interval not displayed. Recent Labs Lab Units 06/21/24 1150 06/21/24 0657 06/21/24 0116 06/20/24 0636 06/20/24 0034 06/19/24 0606/19/24 0429 SODIUM mmol/L -- -- 135 -- 140 -- 138 POTASSIUM PLASMA mmol/L -- -- 4.5 -- 3.9 -- 3.9 CHLORIDE mmol/L -- -- 98 -- 103 -- 101 CO2 mmol/L -- -- 25 -- 27 -- 25 ANIONGAP mmol/L -- -- 12 -- 10 -- 12 GLUCOSE mg/dL -- -- 218* -- 148 -- 132 POC GLUCOSE MONITOR mg/dL 226* 135 -- < > -- < > -- BUN SERUM mg/dL -- -- 17 -- 16 -- 17 CREATININE mg/dL -- -- 0.82 -- 0.80 -- 0.70 CALCIUM mg/dL -- -- 9.6 -- 9.1 -- 9.2 ALBUMIN g/dL -- -- 3.8 -- 3.2* -- 3.2* < > = values in this interval not displayed. No lab exists for component: LABALBU Recent Labs Lab Units 06/21/24 0116 06/20/24 00306/19/24 0429 MAGNESIUM mg/dL 2.0 2.0 1.8 Lab Results Component Value Date GLUCOSE 226 (H) 06/21/2024 GLUCOSE 135 06/21/2024 GLUCOSE 218 (H) 06/21/2024 Implant: Implants ICD Icd - Implanted Chest Wall As of 05/29/2024 Status: Implanted Stent Stent - Implanted Heart As of 05/29/2024 Status: Implanted General Precautions (If Blank, None Found): Isolation Status: No active isolations Nutritional Status and in-house recommendations: Dietary Orders (From admission, onward) Start Ordered 06/15/24 1430 Adult Diet Restricted; Low Fat, Low Chol, Low Na; Consistent Carb 2000 kilo Diet effective now Question Answer Comment (CH) Diet type Restricted Fat / Sodium Restriction: Low Fat, Low Chol, Low Na Diabetic: Consistent Carb 2000 kilo 06/15/24 1429 06/14/24 2100 Snacks At bedtime Comments: Provide snack even if Glu reading is >100. Tuesday- Cheddar cheese, crackers and Grapes (26g carbs) Tuesday- Peanut butter and cheese crackers (23g carbs) Tuesday- Chicken Salad Snack Cup (22g carbs) - Peanut butter and sliced apple (23g carbs) Tuesday- Cheddar cheese and crackers (16g carbs) Tuesday- Yoplait Light Yogurt (16g carbs) Tuesday- 1/2 turkey sandwich with martinez (15g carbs) -Alternate- Ensure High Protein (19g carbs) *If Pt cannot have snack of the day, use snack list posted in [employer] with appropriate alternates with carb count* 06/14/24 1054 Anticoagulation Indication: INR: 06/05/2024: 1.91 (H) Warfarin Administrations (last 168 hours) None Oxygen Status: No data found. Wound Care Instructions Other Instructions Call provider for: Call provider for: Temperature -Temperature greater than 101 degrees F Call provider for: difficulty breathing or chest pain Call provider for: extreme fatigue Call provider for: hives Call provider for: persistent dizziness or light-headedness Call provider for: redness, tenderness, or signs of infection (pain, swelling, redness, odor or green/yellow discharge around incision site) Call provider for: severe uncontrolled pain Call provider for: headache, visual disturbances, weakness and speech changes Special Instructions 1.check fingerstick blood sugar three times daily, bring sugar logs to physician appointment 2. Follow up pcp for chronic medical management, will need to check on potassium level 3. Follow up with cad drafter in 2-3 weeks for follow up Active LDAs (If Blank, None Found): Patient Emergency Contact: Primary Emergency Contact: Peg Rice, Immunization Status at Discharge Immunization History Administered Date(s) Administered Pfizer SARS-CoV-2 Monovalent Vaccination (12+ Yrs) PURPLE 12/23/2020, 01/18/2021 Nancy Hartley MD documented in this encounter Discharge Instructions * Discharge Instructions* Wendy Gomes - 06/13/2024 7:28 PM CDT MENTAL HEALTH CRISIS/URGENT CARE SERVICES National Suicide Prevention Hotline (Available by calling or texting 121 to speak with a counselor for support or additional resources) Behavioral Health Response 229-803-2015 or [phone] (Crisis hotline or additional resources) [facility] Behavioral Health [phone] (Crisis hotline) [facility] Behavioral Health Urgent Care [phone] (walk in urgent care for mental health) Tuesday - Tuesday 9am- 7pm [facility] [phone] [address] [place] [address] [facility] [address] [place] [address] OPEN 02/05 MOBILE OUTREACH SERVICES TO ASSIST IN LOCATING OUTPATIENT CARE FOR MENTAL HEALTH Behavioral Health Response [phone] (Contact and request a mobile outreach to establish community mental health care for [facility] and [facility]) Disaster Hotline (Contact to request assistance in establishing community mental health care in [facility]) [facility] FOR UNINSURED OR MEDICAID [facility] Behavioral Health [phone] ([facility], [facility], [facility], [facility], and [facility]) [place] [phone] ([facility]) [facility] [phone] ([facility]) [facility] ([facility]) [facility] [phone] ([facility]) [place] [phone] ([place] and [facility]) SUBSTANCE USE TREATMENT [facility] [phone] (opioid response project for [facility] residents)- contact to get connected to treatment services [facility] (drug and alcohol treatment) [facility] [phone] (inpatient and outpatient rehabilitation services) [place] ([place] option for treatment) [facility] [place] ([place] option for treatment) [facility] Hand Off- [phone]- ([place] option for assistance in locating treatment) [facility] - [phone] ([place] option for treatment) Intensive Outpatient Programs: Your insurance company will be able to provide more options if desired. Call the customer service number on the back of insurance card. [facility] [phone] [address] [place], [place] Adults, Adolescents, Children [facility] [phone] Adults, Geriatrics, Adolescents [facility] [phone] [address] [place], [place] Adults, Geriatrics, Adolescents [facility] [phone] [place] [address] [place] [address] Adults, Adolescents [facility] [phone] Virtual, Adults [facility] [phone] [place] [address] Adults [facility] [place] [facility] (formerly [facility]) Intensive Outpatient Program [address] [facility] [address] [facility] [address] * Discharge Instr - Diet* Nikki Gallegos, PHONG - 06/15/2024 2:14 PM CDT Recommend to follow a consistent carbohydrate/heart healthy diet, which includes a variety of fruits, vegetables, whole-grains, low-fat dairy products, beans, lean meats, and fish. Limit foods that are high in saturated fats and sodium like desserts, fast food, fried/breaded foods, deli meats, sausage, stevens, and gravies/sauces. Aim to eat less than 2,000mg sodium per day (about 500-700 mg per meal). Eat three meals per day and eat 45-60 grams of carbohydrate at each one, do not skip meals and aim to eat meals at consistent times. Avoid sugary drinks like lemonade, regular soda, Gatorade, andsweet tea and drink water throughout the day. Call [phone] to speak with a dietitian about anydiet related concerns. Recommend to follow up with outpatient nutrition counseling, ask your doctorfor referral and call [phone] to make an appointment. Additional Resources [employer]: www.diabetes.org/nutrition [employer]: www.heart.org/en/healthy-living/healthy-eating documented in this encounter Medications at Time [...] less than 90mmHg) 30 tablet 06/21/2024 multivit amklhidf-yexl-OW -calcium (THERA-M) 9 mg iron-400 mcg tablet [...] mg total) by mouth daily 05/18/2024 4 potassium chloride ER 20 mEq CR tablet Take 1 tablet (20 mEq total) by mouth daily 01/20/2024 4 documented as of this encounter Ordered Prescriptions Prescription Sig Dispense Quantity Refills Last Filled Start Date End Date pen needle, diabetic 32 gauge x needle Use as directed 3 times a day. 100 each 06/21/2024 magnesium oxide (MAG-OX) 400 mg (241.3 mg elemental magnesium) tabletIndications: hypomagnesemia Take 1 tablet (400 mg total) by mouth daily 30 tablet 06/22/2024 midodrine (PROAMATINE) 5 mg tablet Take 1 tablet (5 mg total) by mouth 2 (two) times a day as needed (if systolic blood pressure less than 90mmHg) 30 tablet 06/21/2024 insulin lispro (HumaLOG) 100 unit/mL pen for [...] by mouth daily 30 tablet 06/22/2024 4 Entresto 24-26 mg tablet Take 0.5 tablets by mouth 2 (two) times a day 06/21/2024 4 documented in this encounter Discharge Disposition Disposition Code Departure Means Destination Comment s Discharge to home or self care documented in this encounter Progress Notes * Seth Flores MD - 06/21/2024 4:48 PM CDT Nephrology Progress Note [facility] SUBJECTIVE 06/21 Doing okay. No new sx. K.mag, ckd stable, avss. 06/20 No change. Bp low. All labs reviewed. 06/18 No change. Labs stable. Bp still low. 06/17 Confused, needs sitter. K 4.5 Mg 2.0 All labs reviewed. 06/16 Confused but pleasant tonight. All labs reviewed. K, mg ok. No cardiac issues. Voiding. 06/15 Out of restraints. Doing better. Labs stable. 06/14 Calmer today. Remains in restraints. K and mg okay. Incontinent of urine. No further dysrhythmia. All labs and data reviewed. 06/13 Appears comfortable. All labs and data reviewed. K 3.9, mg 2.0. No further dysrhythmia reported. Uncooperative and agitated earlier. 06/12 Overall stable. All labs and data reviewed. Bp soft, confused. 2 plus blood in urine. OBJECTIVE Vitals: Vitals: 06/21/24 0421 06/21/24 0805 06/21/24 1000 06/21/24 1155 BP: 97/59 130/88 121/73 BP Location: Left arm Left arm Left arm Patient Position: Lying Pulse: 96 97 108 91 Resp: 18 18 18 Temp: 36.4 ??C (97.5 ??F) 36.3 ??C (97.4 ??F) 36.2 ??C (97.1 ??F) TempSrc: Oral Oral Oral SpO2: 92% 94% 95% Weight: Height: Intake/Output Summary (Last 24 hours) at 06/21/2024 210 Last data filed at 06/21/2024 1354 Gross per 24 hour Intake 100 ml Output -- Net 100 ml REVIEW OF SYSTEMS Review of Systems Constitutional: Negative. HENT: Negative. Eyes: Negative. Respiratory: Negative. Cardiovascular: Negative. Gastrointestinal: Negative. Genitourinary: Negative. Musculoskeletal: Negative. Skin: Negative. Allergic/Immunologic: Negative. Hematological: Negative. All other systems reviewed and are negative. PHYSICAL EXAM Physical Exam Constitutional: Appears well-developed. HENT: wnl Head: Normocephalic. Eyes: Pupils are equal, round, and reactive to light. Neck: Normal range of motion. Neck supple. Cardiovascular: Normal rate. Pulmonary/Chest: Effort normal and breath sounds normal. Abdominal: Soft. Musculoskeletal: Normal range of motion. Neurological: Alert, oriented. Skin: Skin is warm. Nursing note and vitals reviewed. MEDICATIONS No current facility-administered medications for this encounter. Current Outpatient Medications: albuterol HFA (PROVENTIL HFA,VENTOLIN HFA,PROAIR HFA) 90 mcg/actuation inhaler, Inhale 2 puffs every 6 (six) hours as needed for wheezing, Disp: , Rfl: BASAGLAR 100 unit/mL (3 mL) pen for injection, Inject 18 Units under the skin daily, Disp: , Rfl: cholecalciferol (VITAMIN D-3) 5,000 unit tablet, Take 1 tablet (5,000 Units total) by mouth daily, Disp: , Rfl: docusate sodium (COLACE) 100 mg capsule, Take 1 capsule (100 mg total) by mouth 2 (two) times a day, Disp: , Rfl: Entresto 24-26 mg tablet, Take 0.5 tablets by mouth 2 (two) times a day, Disp: , Rfl: escitalopram (LEXAPRO) 10 mg tablet, Take 1 tablet (10 mg total) by mouth daily, Disp: , Rfl: Farxiga 10 mg tablet, Take 1 tablet (10 mg total) by mouth daily, Disp: , Rfl: ferrous sulfate 325 mg (65 mg of elemental iron) tablet, Take 1 tablet (325 mg total) by mouth daily with breakfast, Disp: , Rfl: fluticasone propionate (FLONASE) 50 mcg/actuation nasal spray, Administer 1 spray into each nostrildaily as needed for rhinitis, Disp: , Rfl: Gemtesa 75 mg tablet, Take 1 tablet by mouth daily, Disp: , Rfl: insulin lispro (HumaLOG) 100 unit/mL pen for injection, Inject 8 Units under the skin 3 (three) times a day with meals (plus blood glucose mg/dL 150-199: 2 units, 200-249: 4 units, 250-299: 6 units, 300-349: 8 units, 350 or greater: 10 units. Notify provider for blood glucose greater than 299 mg/dL. Max daily dose 60) Refer to After Visit Summary for Sliding Scale Insulin Instructions., Disp: 15 mL, Rfl: 0 levothyroxine (SYNTHROID) 75 mcg tablet, Take 1 tablet (75 mcg total) by mouth every morning, Disp:, Rfl: [START ON 06/22/2024] magnesium oxide (MAG-OX) 400 mg (241.3 mg elemental magnesium) tablet, Take 1 tablet (400 mg total) by mouth daily, Disp: 30 tablet, Rfl: 0 [START ON 06/22/2024] metoprolol XL (TOPROL-XL) 50 mg extended release tablet, Take 1 tablet (50 mg total) by mouth daily, Disp: 30 tablet, Rfl: 0 midodrine (PROAMATINE) 5 mg tablet, Take 1 tablet (5 mg total) by mouth 2 (two) times a day as needed (if systolic blood pressure less than 90mmHg), Disp: 30 tablet, Rfl: 0 multivit gcvwtjai-crcl-AU-calcium (THERA-M) 9 mg iron-400 mcg tablet, Take 1 tablet by mouth daily,Disp: , Rfl: nortriptyline (PAMELOR) 10 mg capsule, Take 1 capsule (10 mg total) by mouth daily, Disp: , Rfl: omeprazole (PriLOSEC) 20 mg capsule, Take 1 capsule (20 mg total) by mouth daily, Disp: , Rfl: pen needle, diabetic 32 gauge x 5/32 needle, Use as directed 3 times a day., Disp: 100 each, Rfl: 0 potassium chloride ER 20 mEq CR tablet, Take 1 tablet (20 mEq total) by mouth daily, Disp: , Rfl: Xarelto 20 mg tablet, Take 1 tablet (20 mg total) by mouth daily with dinner, Disp: , Rfl: Lab/Radiology/Diagnostic Review: Recent Results (from the past 24 hour(s)) Magnesium Collection Time: 06/21/24 1:16 AM Result Value Ref Range Magnesium 2.0 1.4 - 2.5 mg/dL Renal function panel Collection Time: 06/21/24 1:16 AM Result Value Ref Range Sodium 135 135 - 145 mmol/L Potassium, pl 4.5 3.3 - 4.9 mmol/L Chloride 98 97 - 110 mmol/L CO2 25 22 - 32 mmol/L Anion gap 12 2 - 15 mmol/L BUN 17 6 - 25 mg/dL Creatinine 0.82 0.60 - 1.10 mg/dL Glucose 218 (H) 70 - 199 mg/dL Calcium 9.6 8.5 - 10.3 mg/dL Phosphorus, pl 3.7 2.3 - 4.5 mg/dL Albumin 3.8 3.5 - 5.0 g/dL eGFR Collection Time: 06/21/24 1:16 AM Result Value Ref Range eGFR 81 >=60 mL/min/1.73 m2 POCT glucose Collection Time: 06/21/24 6:57 AM Result Value Ref Range Glucose, POC 135 70 - 199 mg/dL POCT glucose Collection Time: 06/21/24 11:50 AM Result Value Ref Range Glucose, POC 226 (H) 70 - 199 mg/dL CTA Upper Extremity Right W WO Contrast Result Date: 06/07/2024 Narrative: EXAMINATION: CTA UPPER EXTREMITY RIGHT W WO CONTRAST HISTORY: Right upper arm swelling ORDER DATE: 06/06/2024 10:40 PM TECHNIQUE: Imaging protocol: Computed tomographic angiography of the right upper extremity with contrast, including non-contrast images if performed. 3D rendering (Not supervised by radiologist): MIP and/or 3D reconstructed images were created by the technologist. Contrast material: OPTIRAY 350; Contrast volume: 119 ml IV COMPARISON: CT CHEST PE (CTA) W CONTRAST 05/30/2024 FINDINGS: Tubes, catheters and devices: There is a PICC line inserted through the right basilicvein at the level of the distal arm. There is mild fat stranding within the anterior distal arm, without sizable hematoma or drainable fluid collection. No evidence of active extravasation. Pulmonaryarteries: There is a partially visualized curvilinear metallic structure within the right pulmonaryartery, similar to prior. Right subclavian artery: No acute findings. No occlusion or significant stenosis. Axillary artery: No acute findings. No occlusion or significant stenosis. Brachial artery: No acute findings. No occlusion or significant stenosis. Radial artery: No acute findings. No occlusion or significant stenosis. Ulnar artery: No acute findings. No occlusion or significant stenosis. Veins: Peripheral intravenous access is seen within the cephalic vein at the level of the antecubital fossa. Impression: 1. Patent arterial system of the right upper extremity as detailed above. 2. No evidence of hematoma or drainable fluid collection Stat report by [facility] Electronically signed by: Andrea Abernathy M.D. ECG 12 lead Result Date: 06/06/2024 Narrative: Vent Rate: 78 bpm RR Interval: 763 msec [place] Interval: 0 msec QRS Duration: 154 msec QT Interval: 473 msec QTC Interval: 506 msec P-R-T [place]: 0 - 23 - 94 degrees IMPRESSION: ATRIAL FIBRILLATION Occasional ventricular pacing INDETERMINATE AXIS Left bundle branch block ABNORMAL ECG Electronically Signed By: Dr. Shiloh Muhammad [facility] US Vein Duplex Upper Extremity Right Limited, Unilateral Result Date: 06/06/2024 Narrative: EXAMINATION: US VEIN DUPLEX UPPER EXTREMITY RIGHT LIMITED, UNILATERAL HISTORY: The patient is a 63-year-old female who presents with swelling in the right upper extremity. TECHNIQUE: Rightupper extremity venous duplex study was performed with hahn scale imaging, color Doppler imaging and spectral waveform analysis. FINDINGS: There is normal compressibility and phasicity in both internal jugular and subclavian veins as well as the right axillary, brachial, radial, ulnar, cephalic andbasilic veins. Imaging of these veins reveals no thrombus within the lumen. Impression: There is no evidence of acute DVT in the right upper extremity. Electronically signed by: Conrad Davila M.D. XR Chest Pa Lateral 2 Views Result Date: 06/06/2024 Narrative: EXAMINATION: XR CHEST PA LATERAL 2 VIEWS HISTORY: The patient is a 63-year-old female who has had placement of a PICC line. Comparison made with the previous study dated 12/26/2020. TECHNIQUE: AP and lateral view of the chest. FINDINGS: The distal tip of the right PICC line is in the distal superior vena cava. Cardiomegaly with aortic atherosclerosis. No failure. No active infiltrate. Impression: No failure. Electronically signed by: Conrad Davila M.D. IR PICC Line Placement Over 5 Years of Age Result Date: 06/05/2024 Narrative: EXAMINATION: IR PICC LINE PLACEMENT OVER 5 YEARS OF AGE DATE: 06/05/2024 2:05 PM HISTORY:sepsis Unsuccessful attempt at bedside PICC line placement by in-house vascular team. TECHNIQUE: The risks, benefits, and alternatives were discussed and informed consent was obtained. Prior to beginn ing the procedure, universal protocol was performed to confirm the patient's identity and the planned procedure. Maximum sterile barriers including cap, mask, hand hygiene, sterile gloves, sterile gown, large sterile drape, sterile gel, sterile ultrasound probe cover, and 2% chlorhexidine for cutaneous antisepsis were used. The skin over the right basilic vein was sterilely prepped, draped, and infiltrated with lidocaine. Prior to the procedure, this target vessel was evaluated by ultrasound and an image of the patent vessel demonstrating vessel patency was recorded in the patient's electronic medical record. This vessel was then accessed using real-time ultrasound guidance. A guidewire waspassed centrally using fluoroscopic guidance. The intravascular length from the access site to the right atrium was assessed. After dilating the tract, a 45 cm, 5-[place] dual-lumen PICC was inserted through the peel-away sheath. The peel-away sheath was then removed. The catheter was flushed and sec ured in place. A sterile dressing was applied. The final fluoroscopic image demonstrates the catheter with its tip at the cavoatrial junction. No complications were identified. The catheter is ready for immediate use. When treatment is completed, this catheter can be removed at the bedside according to standard hospital protocol. Impression: Successful PICC placement using ultrasound guidance. Electronically signed by: Blaine Nash M.D. XR Chest 1 View Result Date: 06/05/2024 Narrative: EXAMINATION: XR CHEST 1 VIEW HISTORY: The patient is a 63-year-old female who has had anattempted PICC line placement. Comparison made with the previous study dated 05/29/2024. TECHNIQUE:AP portable view of the chest. FINDINGS: Cardiomegaly with aortic atherosclerosis. No failure. No active infiltrate. Impression: Cardiomegaly. Electronically signed by: Conrad Davila M.D. ECG 12 lead Result Date: 06/02/2024 Narrative: Vent Rate: 86 bpm RR Interval: 697 msec OH Interval: 0 msec QRS Duration: 157 msec QT Interval: 470 msec QTC Interval: 513 msec P-R-T [place]: 0 - 38 - 88 degrees IMPRESSION: ATRIAL FIBRILLATION WITH ABERRANT CONDUCTION OR VENTRICULAR PREMATURE COMPLEXES LEFT BUNDLE BRANCH BLOCK [120+ ms QRS DURATION, 80+ ms Q/S IN V1/V2, 85+ ms R IN I/aVL/V5/V6] ABNORMAL ECG Compared to prior EKG, ventricular pacing is no longer present Electronically Signed By: Antonio Carlos MD ECG 12 lead Result Date: 06/02/2024 Narrative: Vent Rate: 76 bpm RR Interval: 782 msec OH Interval: 0 msec QRS Duration: 158 msec QT Interval: 494 msec QTC Interval: 525 msec P-R-T [place]: 0 - 116 - 120 degrees IMPRESSION: ATRIAL FIBRILLATION WITH demand ventricular pacemaker MARKED RIGHT AXIS DEVIATION [QRS AXIS > 100] INTRAVENTRICULAR CONDUCTION DELAY [130+ ms QRS DURATION] ABNORMAL ECG Compared to prior EKG, demand ventricular pacing is new Electronically Signed By: Antonio Carlos MD CT Abdomen Pelvis W Contrast Result Date: 06/01/2024 Narrative: EXAMINATION: CT ABDOMEN PELVIS W CONTRAST DATE: 06/01/2024 1:05 PM HISTORY: Sepsis. COMPARISON: 02/28/2017. TECHNIQUE: Transaxial computed tomographic images of the abdomen and pelvis were obtained after the administration of 119 mL of Optiray 350 intravenously. Multiplanar coronal and sagittal images were reformatted. FINDINGS: Similar scarring in the left lung base unchanged since 2017. There is cardiomegaly and mosaic attenuation in the lung bases suggestive of pulmonary edema. There is a small hiatal hernia. Cholecystectomy. Diffuse hepatic steatosis. The spleen, pancreas, and adrenal glands are unremarkable. Kidneys are unremarkable. No hydroureteronephrosis. Unopacified bladder is unremarkable. Uterus and adnexal structures are unremarkable. No free fluid in the pelvis. There is diverticulosis. No evidence of diverticulitis. The small bowel is unremarkable. Mild atherosclerotic calcifications in the aorta and branch vessels. Subcutaneous tissues are unremarkable. No pathologic by size criteria lymphadenopathy. Mild bilateral sacroiliac joint arthrosis. No acute fracture. No pathologic by size criteria lymphadenopathy. Impression: 1. Mosaic attenuation in the lung bases suggestive of interstitial pulmonary edema. 2. Diffuse hepatic steatosis. 3. Small hiatal hernia. 4. Trace left pleural effusion. 5. Additional chronic or incidental findings as above. Electronically signed by: Azeem Robins II, D.O. ECG 12 lead Result Date: 06/01/2024 Narrative: Vent Rate: 102 bpm RR Interval: 584 msec OH Interval: 0 msec QRS Duration: 149 msec QT Interval: 387 msec QTC Interval: 446 msec P-R-T [place]: 0 - 115 - 66 degrees IMPRESSION: ATRIAL FIBRILLATION WITH RAPID VENTRICULAR RESPONSE WITH ABERRANT CONDUCTION OR VENTRICULAR PREMATURE COMPLEXES INDETERMINATE AXIS INTRAVENTRICULAR CONDUCTION DELAY [130+ ms QRS DURATION] ABNORMAL ECG NO CHANGE FROM PREVIOUS TRACING NOTED Electronically Signed By: Antonio Carlos MD ECG 12 lead Result Date: 06/01/2024 Narrative: Vent Rate: 83 bpm RR Interval: 716 msec OH Interval: 0 msec QRS Duration: 154 msec QT Interval: 409 msec QTC Interval: 449 msec P-R-T [place]: 0 - 123 - 189 degrees IMPRESSION: ATRIAL FIBRILLATION INTRAVENTRICULAR CONDUCTION DELAY LATERAL MYOCARDIAL INFARCTION , OF INDETERMINATE AGE Electronically Signed By: Cristino Kingsley MD, [facility] ECG 12 lead Result Date: 05/31/2024 Narrative: Vent Rate: 74 bpm RR Interval: 810 msec OH Interval: 0 msec QRS Duration: 151 msec QT Interval: 449 msec QTC Interval: 476 msec P-R-T [place]: 0 - 102 - 146 degrees IMPRESSION: VENTRICULAR PACED RHYTHM Electronically Signed By: Cristino Kingsley MD, [facility] ECG 12 lead Result Date: 05/31/2024 Narrative: Vent Rate: 76 bpm RR Interval: 785 msec OH Interval: 0 msec QRS Duration: 150 msec QT Interval: 471 msec QTC Interval: 501 msec P-R-T [place]: 0 - 80 - 97 degrees IMPRESSION: ATRIAL FIBRILLATION WITH ABERRANT CONDUCTION OR VENTRICULAR PREMATURE COMPLEXES INTRAVENTRICULAR CONDUCTION DELAY [130+ ms QRS DURATION] ABNORMAL ECG Electronically Signed By: Dr. Shiloh Muhammad [facility] ECG 12 lead Result Date: 05/30/2024 Narrative: Vent Rate: 109 bpm RR Interval: 548 msec OH Interval: 0 msec QRS Duration: 149 msec QT Interval: 398 msec QTC Interval: 462 msec P-R-T [place]: 0 - 96 - 89 degrees IMPRESSION: ATRIAL FIBRILLATION WITH RAPID VENTRICULAR RESPONSE BORDERLINE RIGHT AXIS DEVIATION [QRS AXIS > 90] INTRAVENTRICULAR CONDUCTION DELAY [130+ ms QRS DURATION] ABNORMAL ECG Unchanged compared to an EKG done earlier on May 30, 2024 Electronically Signed By: Dr. Shiloh Muhammad [facility] CT Chest WO Contrast Result Date: 05/30/2024 Narrative: EXAMINATION: Computed tomography of the chest without intravenous contrast HISTORY: Right lower lobe pulmonary artery for and body TECHNIQUE: Transaxial computed tomographic images of the chest were obtained without intravenous contrast according to the standard protocol. COMPARISON: 05/30/[address] angiography. FINDINGS: Bilateral small pleural effusions and atelectasis. There is trace pulmonary edema. Heart is enlarged. Small volume pericardial effusion. Pacemaker defibrillator leads terminate in the right atrium and right ventricle. There left hilar calcified granulomas. There is a curvilinear density originating in the right lower lobe pulmonary artery and extending distally into a lateral basilar subsegmental branch vessel. Visualized portions of the upper abdomen demonstrate changes of cholecystectomy. No suspicious osseous lesions. Impression: 1. Redemonstrated curvilinear radiopaque density extending from the proximal right lower lobe pulmonary artery into a subsegmental lateral basilar branch favors a catheter or wire fragment. 2. Findings most suggestive of heart failure with cardiomegaly, small volume pericardial effusion, and small bilateral pleural effusions and mild pulmonary edema. Electronically signed by: Abilio Post M.D. Transthoracic Echo (TTE) Complete W Doppler/CF Result Date: 05/30/2024 Narrative: [place] [address] Echocardiogram Report Patient Name: LEI RODRIGUEZ V : 1960 Study Date: 05/30/2024 7:47:08 AM Gender: F Tech: GUILHERME Location: [id number] Ref Provider: TY MCFARLAND Height(Cm): 165 BSA: 2.43 Weight(Kg): 128.7 Heart Rate: 94 BP: 135/84 Quality:Good Order Provider: TY MCFARLAND PROCEDURES: Echocardiographic Report: Transthoracic echocardiogram with complete 2D, M-Mode, color Doppler examination and contrast. INDICATIONS: Endocarditis.Measurements: 2D/M Mode Doppler Measurement Value Normal Range [...] ] m/s LA Volume Index 22.99 [ 16.00- 34.00 ] cc/m2 MV A Peak Chadd [...] RVSP 38.00 [ 10.00 - 36.00 ] mmHgE` 0.05 m/s E/E` 19.29 Measurement Value Normal [...] Right Ventricle: Normal right ventricular systolic function. P acemaker noted. Right Atrium: There is mild enlargement of right atrium. Linear artifact in right atrium suggestive of catheter(s), pacemaker lead(s), or ICD lead(s). Aortic Valve: Aortic cusps appear mildly sclerotic. No evidence of hemodynamically significant aortic stenosis by Doppler. No aorticregurgitation. Mitral Valve: Normal structure of the mitral valve. Mild to moderate mitral valve regurgitation. The regurgitation jet is eccentrically directed which may underestimate the severity ofmitral regurgitation. Pulmonic Valve: Normal structure of the [...] CANDELARIO 2024-05-30 09:18:05 CDT CC: CC: CC: XR Chest 1 View Result Date: 05/30/2024 Narrative: EXAMINATION: XR CHEST 1 VIEW History: Shortness of breath Impression: Single view chest exam similar for interpretation with comparison to prior from 03/07/2017. Correlation made with CT from the same day There are diffuse interstitial and airspace opacitiescompatible with moderate pulmonary edema. Likely small effusions. Heart is enlarged. There is a curvilinear density projecting over the right lower lung which corresponds to a catheter or wire in theright lower lobe pulmonary arteries when correlated with the CT examination. This finding is not present on the prior 2017 examination. The presence of this finding was discussed by Dr. Abernathy with Dr. Hollis and documented by Dr. Hollis in the medical record on 05/30/2024 at [facility]. Electronically signed by: Abilio Post M.D. ECG 12 lead Result Date: 05/30/2024 Narrative: Vent Rate: 86 bpm RR Interval: 697 msec [place] Interval: 0 msec QRS Duration: 145 msec QT Interval: 438 msec QTC Interval: 481 msec P-R-T [place]: 0 - 101 - 95 degrees IMPRESSION: ATRIAL FIBRILLATION RIGHT AXIS DEVIATION [QRS AXIS > 100] INTRAVENTRICULAR CONDUCTION DELAY [130+ ms QRS DURATION] ABNORMAL ECG Unchanged compared to 05/29/2021 Electronically Signed By: Dr. Shiloh Muhammad [facility] CT Chest PE (CTA) W Contrast Result Date: 05/30/2024 Narrative: EXAMINATION: CT CHEST PE (CTA) W CONTRAST HISTORY: Chest pain ORDER DATE: 05/30/2024 3:20AM TECHNIQUE: CT chest images were acquired using a chest angiographic protocol with 3-D imaging optimized for PE is obtained [id number] mL of Optiray 350 IV. 2D Coronal and sagittal reformats were obtained. 3-D rendering (not supervised by radiologist) MIP and/or 3-D reconstructed images were created by the technologist. FINDINGS: Dual lead pacer device implanted in the left chest wall with leads in the right atrium and right ventricle. Pulmonary arteries: Dilated main pulmonary artery measuring 4.9 cm. Some of the segmental branches are not well assessed for exclusion of subtle emboli due to excessive motion. Otherwise centrally no pulmonary artery emboli. A dislodged catheter is visualized in the distal right pulmonary artery extending into the lobar and segmental right lower lobe pulmonary artery branch, image [id number]/coronal series 9. Aorta: Unremarkable. No aortic aneurysm. No aortic dissection. Lungs: Diffuse multilobar septal thickening, peribronchial thickening and increasedground-glass alveolar airspace opacity of the lung parenchyma representing findings of pulmonary interstitial edema. Pleural spaces: Mild left and trace to mild right pleural effusions. Heart: Four-chamber enlarged heart. Reflux of contrast within the hepatic veins and IVC may suggest right heart failure. Trace to mild pericardial effusion present. Lymph nodes: Multiple calcified mediastinal and hilar lymph nodes which suggest prior exposure to granulomatous disease. No lymphadenopathy. Diaphragm: There is a small hiatal hernia. Liver: Coarsened nodular hepatic parenchyma may suggest underlying chronic hepatocellular disease. Liver is prominent in size measuring 17.5 cm. Gallbladder and biliary ducts: Cholecystectomy. Bones/joints: No acute fracture. Soft tissues: Unremarkable. Impression: 1. Motion degraded evaluation of the pulmonary arteries. Some of the segmental branchesare not well assessed for exclusion of subtle emboli. Otherwise centrally no pulmonary artery emboli. 2. Pulmonary arterial hypertension and dislodged the catheter visualized in the distal right pulmonary artery and right lower lobe lobar and segmental pulmonary artery branch. 3. CHF, pulmonary edema and small bilateral pleural effusions. 4. Possible congestive cirrhosis. Correlate with LFTs. 5. Additional findings as described above. Stat report by [facility] . Electronically signed by: Andrea Abernathy M.D. CT Cervical Spine WO Contrast Result Date: 05/30/2024 Narrative: EXAMINATION: CT CERVICAL SPINE WO CONTRAST HISTORY: Neck pain ORDER DATE: 05/29/2024 10:55 PM TECHNIQUE: Multiple helical axial images of the cervical spine were obtained without the administration of contrast. Coronal and sagittal reformatted images were included. FINDINGS: Bones: No acute fracture. Chronic mild C6 loss of vertebral body height present. Normal alignment. Mild right C3-C4 facet arthrosis. C3-C4 disc narrowing and partially calcified bulging disc contributing to [id number] central spinal stenosis. Disc osteophyte complex also contributing to [id number] central spinal stenosis at C4-C5 level. No significant disc bulge or herniation. No severe spinal canal stenosis. Uncovertebral joint hypertrophy contributing to multilevel bilateral neural foraminal stenosis. Lungs: Lung apices are normal. Soft tissues: Unremarkable. Impression: No acute cervical spine injury. Stat report by [facility] Stat report by [facility] Electronically signed by: Andrea Abernathy M.D. CT Head WO Contrast Result Date: 05/30/2024 Narrative: EXAMINATION: CT head without contrast HISTORY: Headache, new or worsening (Age >= 50y) TECHNIQUE: Noncontrast CT of the brain was performed with images acquired from skull base to vertex. COMPARISON: None available. FINDINGS: Brain: Global volume loss and cortical dilatation present. No hemorrhage. Mild chronic microvascular ischemic changes of the periventricular white matter. No mass effect. No edema. Cerebral ventricles: No ventriculomegaly. Paranasal sinuses: Visualized sinuses are unremarkable. No fluid levels. Mastoid air cells: Visualized mastoid air cells are well aerated. Bones: Unremarkable. No acute fracture. Soft tissues: Unremarkable. Impression: No acute intracranial findings. Stat report by [facility] Electronically signed by: Andrea Abernathy M.D. ECG 12 lead Result Date: 05/30/2024 Narrative: Vent Rate: 93 bpm RR Interval: 645 msec [place] Interval: 0 msec QRS Duration: 97 msec QT Interval: 197 msec QTC Interval: 247 msec P-R-T [place]: 0 - 118 - 0 degrees IMPRESSION: ATRIAL FIBRILLATION WITH ABERRANT CONDUCTION OR VENTRICULAR PREMATURE COMPLEXES LOW QRS VOLTAGE [QRS DEFLECTION < 0.5/1.0 mV IN LIMB/CHEST LEADS] SEPTAL MYOCARDIAL INFARCTION , PROBABLY OLD [40+ ms Q WAVE IN V1/V2]Nonspecific IVCD LATERAL MYOCARDIAL INFARCTION , OF INDETERMINATE AGE [40+ ms Q WAVE AND/OR ST/T ABNORMALITY IN I/aVL/V5/V6] ABNORMAL ECG Electronically Signed By: Antonio Carlos MD ASSESSMENT/PLAN Controlled type 2 diabetes mellitus with chronic kidney disease, with long-term current use of insulin (HCC) Hypothyroidism Hypotension due to drugs Chronic diastolic congestive heart failure (CMS/HCC) (HCC) Endocarditis Urinary frequency Gastroesophageal reflux disease without esophagitis Paroxysmal atrial fibrillation (CMS/HCC) (HCC) Major depressive disorder CKD (chronic kidney disease) CKD ? Hypokalemia/hypomag. Recent endocarditis. Recurrent ICD firing. A fib. DM/HTN. Hx of CHF. Hypothyroidism. PLAN Renal fn is stable, ckd/gerald ocasio not indicated. Hold lasix, keep K over 4, Mg over 2. Cards ocasio, ICD interrogation, Hold Tikosyn/BB. Daily RFP. Will d/w cardiology Repeat CHANCE. 06/12, d/w cards, monitor k, mg and cr, recs as above, monitor microscopic hematuria, start mgo and kcl. 06/13, K and mg acceptable, rpt ua, continue K and mg at current dose. 06/14, k and mg stable, stable renal fn/lytes, continue daily RFP and mag. 06/15, same management, no changes. -06/16, k, mg stable, no reported cardiac rhythm issues, will follow. -06/17, BP low, k, mg, lytes stable, iv abx. -06/18, egfr 79, k, mg stable, dc all bp meds. -06/20, k ang mg dropping, bp low, on entresto and bb, will d/w cardiology, restart k and mg. -06/21, stable labs and kidney fn, no med change by me today. I can be reached at [phone] with any concerns. Thank you No att. providers found for the consult. Seth Flores MD [employer] [phone] * Virginie Simon NP - 06/21/2024 12:13 PM CDT Infectious Disease Progress Note Consulting Physician: Eben Pettit MD. Reason for consult: Ongoing IV antibiotic therapy new admission for syncope Interval history/review of systems Afebrile. WBC 5.9 as of 06/19. Pt is alert, up in chair, on RA. Calm and cooperative. Denies pain today. She reports good appetite. LBM yesterday. Denies N/V/D, SOB, cough, CP, or new rash. Sitter at bedside. Anti-infectives (From admission, onward) Start Dose/Rate Route Frequency Ordered Stop 06/11/24 0100 ceFAZolin (ANCEF) 2,000 mg/100 mL in dextrose (premix) 2 g 2 g 200 mL/hr over 30 Minutes intravenous Every 8 hours scheduled 06/11/24 0036 06/21/24 2859 Objective: Vitals: 24hr Min/Max: Temp Min: 36.3 ??C (97.4 ??F) Max: 36.8 ??C (98.2 ??F) Pulse Min: 54 Max: 107 BP Min: 97/59 Max: 135/89 Resp Min: 18 Max: 18 SpO2 Min: 92 % Max: 99 % Most Recent : Vitals: 06/20/24200106/21/24 0048 06/21/24 0421 06/21/24 0805 BP: 120/79 135/89 97/59 130/88 BP Location: Left arm Left arm Left arm Left arm Patient Position: Sitting Sitting Lying Pulse: 98 107 96 97 Resp: 18 18 18 18 Temp: 36.8 ??C (98.2 ??F) 36.4 ??C (97.5 ??F) 36.4 ??C (97.5 ??F) 36.3 ??C (97.4 ??F) TempSrc: Oral Oral Oral Oral SpO2: 98% 95% 92% 94% Weight: Height: Physical Exam: General appearance: alert, cooperative, no distress HEENT: (-)icterus, Oropharnyx is normal, forehead with stitches, site is clean Neck: No palpable LN Lungs: breath sounds normal and symmetric; minimal respiratory effort, no r/w/c Heart: normal S1 and S2, no m/r/g Abdomen: soft without mass, non-tender, +bowel sounds, no HSM Extremities/Skin: no gross deformities, FROM, no new rashes, no ulcerations Vascular: no Edema, pulses present bilaterally Neuro: No focal deficits Psych: Appropriate mood and affect Double-lumen PICC line right upper extremity placed 06/05, site is clean Labs Reviewed. Recent Labs Lab Units 06/20/24 0034 WBC K/cumm 5.9 HEMOGLOBIN g/dL 12.1 HEMATOCRIT % 38.5 PLATELETS K/cumm 269 Lab Results Component Value Date WBC 5.9 06/20/2024 HGB 12.1 06/20/2024 HCT 38.5 06/20/2024 MCV 101.6 (H) 06/20/2024 LABPLAT 269 06/20/2024 Recent Labs Lab Units 06/21/24 0116 06/20/24 0034 06/19/24 0429 BUN SERUM mg/dL 17 16 17 CREATININE mg/dL 0.82 0.80 0.70 Lab Results Component Value Date ALT 5 (L) 06/08/2024 AST 21 06/08/2024 ALKPHOS 217 (H) 06/08/2024 BILITOT 0.5 06/08/2024 Cultures Blood culture 06/13 no growth Urinalysis with no significant signs of infection on 06/12 06/14 UA neg Imaging CTA right upper extremity with no evidence of hematoma or drainable fluid collection. Patent arterial system. No evidence of DVT Assessment: MSSA bacteremia Called microlab during last admission, [facility] blood cultures 05/25 NG. blood cultures were positive for Staph aureus 05/21 and 05/22 Documented at outside hospital, unknown date so far will follow-up with [facility]. 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 Discussed case with Dr. Neli Hutchinson during last admission She underwent CHANCE, with no visible valve vegetation. Repeat blood cultures 05/30 no growth She has AICD in place. There was a clot in MA[place], probably an appendage clot, hence synchronized Cardioversion was canceled on last admission. Electrophysiology/Cardiology team was following and there was plan for Bi V ICD after completing antibiotic course. Blood cultures were negative at outside hospital from 05/25, blood cultures negative at this facility from 05/30 CT abdomen and pelvis 06/01 With no significant infectious findings Nausea vomiting/syncope due to VF/fall Cardiology is following Dislodged catheter/lead.. PA Atrial fibrillation CHF GERD Hypertension Obstructive sleep apnea Thyroid disease Intellectual disability Plan: Continue on Ancef to complete therapy till 06/22, due to presence of AICD. -blood cultures from 05/30 no growth. New blood cultures were ordered due to fever 06/13 but no growth. -IR guided PICC line placement on 06/05. Right upper extremity, Dopplers with no DVT, CTA with -no hematoma/fluid collection. -chest x-ray 06/14 no new infiltrate -Urine 06/14 no signs of infection -Blood cx 06/13 no growth Virginie Simon NP 06/21/2024 [facility] Office: [phone] Fax: [phone] Cosigned by Manuel Ludwig MD at 06/28/2024 10:17 PM CDT * Lizzie Hong MD - 06/21/2024 8:56 AM CDT [facility] - Cardiology [facility] Progress Note Admit Date: 06/10/2024 11:41 PM @HDAYS@ PCP: Oswaldo Serrano MD Patient seen and examined Chart , telemtry reviewed Symptoms Patient denies chest pain, dyspnea, palpitations, sweating or syncope.Agitated overnight Had atrialfib with RVR Data Vitals: 06/20/24 2002 06/21/24 0048 06/21/24 0421 06/21/24 0805 BP: 120/79 135/89 97/59 130/88 BP Location: Left arm Left arm Left arm Left arm Patient Position: Sitting Sitting Lying Pulse: 98 107 96 97 Resp: 18 18 18 18 Temp: 36.8 ??C (98.2 ??F) 36.4 ??C (97.5 ??F) 36.4 ??C (97.5 ??F) 36.3 ??C (97.4 ??F) TempSrc: Oral Oral Oral Oral SpO2: 98% 95% 92% 94% Weight: Height: Intake/Output Summary (Last 24 hours) at 06/21/2024 0900 Last data filed at 06/20/2024 1609 Gross per 24 hour Intake 120 ml Output -- Net 120 ml Lab Results Component Value Date WBC 5.9 06/20/2024 HGB 12.1 06/20/2024 HCT 38.5 06/20/2024 Lab Results Component Value Date SODIUM 135 06/21/2024 SODIUM 140 06/20/2024 SODIUM 138 06/19/2024 POTASSIUM 4.5 06/21/2024 POTASSIUM 3.9 06/20/2024 POTASSIUM 3.9 06/19/2024 CHLORIDE 98 06/21/2024 CHLORIDE 103 06/20/2024 CHLORIDE 101 06/19/2024 CO2 25 06/21/2024 CO2 27 06/20/2024 CO2 25 06/19/2024 CREATININE 0.82 06/21/2024 CREATININE 0.80 06/20/2024 CREATININE 0.70 06/19/2024 GLUCOSE 135 06/21/2024 GLUCOSE 218 (H) 06/21/2024 GLUCOSE 194 06/20/2024 GLUCOSE 197 06/20/2024 GLUCOSE 148 06/20/2024 GLUCOSE 132 06/19/2024 CALCIUM 9.6 06/21/2024 CALCIUM 9.1 06/20/2024 CALCIUM 9.2 06/19/2024 No results found for: PTT No results found for: PT No results found for: INR No results found for: BNP No components found for: TROPONIN No results found for: CHOL , TRIG , HDL , LDLCALC Lab Results Component Value Date ALBUMIN 3.8 06/21/2024 ALBUMIN 3.2 (L) 06/20/2024 ALBUMIN 3.2 (L) 06/19/2024 No components found for: MAGMGDL No results found for: TSH No results found for: T3FREE No results found for: F2AAXEV Meds MEDICATIONS FOR CURRENT ENCOUNTER: SCHEDULED MEDICATIONS: Scheduled Medications Medication Dose Route Frequency ceFAZolin (ANCEF) 2,000 mg/100 mL in dextrose (premix) 2 g 2 g intravenous Q8H GALINA cholecalciferol (VITAMIN D-3) tablet 5,000 Units 5,000 Units oral Daily dapagliflozin propanediol (FARXIGA) tablet 10 mg 10 mg oral Daily docusate sodium (COLACE) capsule 100 mg 100 mg oral BID escitalopram (LEXAPRO) tablet 5 mg 5 mg oral Daily ferrous sulfate delayed release tablet 65 mg of elemental iron 65 mg of elemental iron oral Daily with breakfast insulin glargine (LANTUS, SEMGLEE) 100 unit/mL injection 17 Units 0.15 Units/kg subcutaneous Nightly insulin lispro (HumaLOG, ADMELOG) 100 unit/mL injection 0-4 Units 0-4 Units subcutaneous Nightly insulin lispro (HumaLOG, ADMELOG) 100 unit/mL injection 0-5 Units 0-5 Units subcutaneous TID with meals insulin lispro (HumaLOG, ADMELOG) 100 unit/mL injection 6 Units 0.05 Units/kg subcutaneous TID withmeals levothyroxine (SYNTHROID) tablet 75 mcg 75 mcg oral QAM magnesium oxide (MAG-OX) tablet 400 mg 400 mg oral Daily metoprolol XL (TOPROL-XL) extended release tablet 50 mg 50 mg oral Daily multivit apgnabnb-ywsb-LP-calcium (THERA-M) tablet 1 tablet 1 tablet oral Daily nortriptyline (PAMELOR) capsule 10 mg 10 mg oral Daily pantoprazole DR (PROTONIX) extended release tablet 40 mg 40 mg oral Daily potassium chloride ER (KLOR-CON) extended release tablet 40 mEq 40 mEq oral Daily rivaroxaban (XARELTO) tablet 20 mg 20 mg oral Daily with dinner sacubitriL-valsartan (ENTRESTO) 24-26 mg tablet 0.5 tablet 0.5 tablet oral BID CONTINUOUS MEDICATIONS: Continuous Medications Medication Dose Last Rate PRN MEDICATIONS: PRN Medications Medication Dose Route Frequency Last Admin acetaminophen (TYLENOL) tablet 650 mg 650 mg oral Q4H PRN 650 mg at 06/16/24 1155 albuterol HFA (PROVENTIL HFA,VENTOLIN HFA,PROAIR HFA) 90 mcg/actuation inhaler 2 puff 2 puff inhalation Q6H PRN (RT) dextrose oral liquid liquid 15 g 15 g oral Q15 Min PRN Or dextrose (D10W) 10% bolus 250 mL 250 mL intravenous Q15 Min PRN fluticasone propionate (FLONASE) 50 mcg/actuation nasal spray 1 spray 1 spray each nostril Daily PRN glucagon injection 1 mg 1 mg intramuscular Q30 Min PRN OLANZapine (ZyPREXA) 5 mg in sterile water 1 mL (5 mg/mL) syringe 5 mg intramuscular Q6H PRN Allergies Allergen Reactions Sulfa (Sulfonamide Antibiotics) Review of Systems: All systems were reviewed. Pertinent positives are mentioned above. Exam General appearance: alert, cooperative, no distress Neck: No JVD. No carotid Bruit Chest: Decreased air entry bilaterally,No added sounds Cardiovascular: regular rate, rhythm, normal S1 and S2, without rub, gallopsPSM 2/6 Abdomen: soft without mass, non-tender, with normal bowel sounds Extremities: no clubbing, cyanosis or edema. Peripheral pulse palpable Assessment /Plan Episode of syncope -secondary to VF , severe LV dysfunction --troponins are normal No recurrence V-fib. -5 episodes of VFib with appropriate ICD firing. Keep pottasium greater than 4, Mg greater than 2 - previous LHC that was negative for CAD. Given normal troponin no need for IP cath. Questionable endocarditis. -no vegetations seen on CHANCE last admission. - to continue antibiotics as per Infectious Disease until 06-09-24 Persistent Atrial fibrillation. - CHANCE 05/31/24 that showed left atrial appendage clot therefore no CV Rate was fast overnight but patient was agitated better controlled now. -On xarelto for AC. Rate fast on occasions Dislodged catheter. in pulmonary artery noted on CT chest and CHANCE last admission. Chronic systolic congestive heart failure. -Clinically compensated at this time. -EF 30% by echo last admit. Continue Entresto. Added beta danny closely monitor heart rate is euvolemic not requiring diuretics Diabetes type 2 -per hospitalist Hypothyroid -treated Lizzie Hong MD * Seth Flores MD - 06/20/2024 11:08 PM CDT Nephrology Progress Note [facility] SUBJECTIVE 06/20 No change. Bp low. All labs reviewed. 06/18 No change. Labs stable. Bp still low. 06/17 Confused, needs sitter. K 4.5 Mg 2.0 All labs reviewed. 06/16 Confused but pleasant tonight. All labs reviewed. K, mg ok. No cardiac issues. Voiding. 06/15 Out of restraints. Doing better. Labs stable. 06/14 Calmer today. Remains in restraints. K and mg okay. Incontinent of urine. No further dysrhythmia. All labs and data reviewed. 06/13 Appears comfortable. All labs and data reviewed. K 3.9, mg 2.0. No further dysrhythmia reported. Uncooperative and agitated earlier. 06/12 Overall stable. All labs and data reviewed. Bp soft, confused. 2 plus blood in urine. OBJECTIVE Vitals: Vitals: 06/20/24 0845 06/20/24 1208 06/20/24 1606 06/20/242001 BP: 113/74 123/93 120/79 BP Location: Left arm Left arm Left arm Patient Position: Sitting Sitting Sitting Pulse: 89 54 107 98 Resp: 18 18 18 Temp: 36.6 ??C (97.9 ??F) 36.5 ??C (97.7 ??F) 36.8 ??C (98.2 ??F) TempSrc: Oral Oral Oral SpO2: 97% 99% 98% Weight: Height: Intake/Output Summary (Last 24 hours) at 06/20/2024 2308 Last data filed at 06/20/2024 1609 Gross per 24 hour Intake 340 ml Output -- Net 340 ml REVIEW OF SYSTEMS Review of Systems Constitutional: Negative. HENT: Negative. Eyes: Negative. Respiratory: Negative. Cardiovascular: Negative. Gastrointestinal: Negative. Genitourinary: Negative. Musculoskeletal: Negative. Skin: Negative. Allergic/Immunologic: Negative. Hematological: Negative. All other systems reviewed and are negative. PHYSICAL EXAM Physical Exam Constitutional: Appears well-developed. HENT: wnl Head: Normocephalic. Eyes: Pupils are equal, round, and reactive to light. Neck: Normal range of motion. Neck supple. Cardiovascular: Normal rate. Pulmonary/Chest: Effort normal and breath sounds normal. Abdominal: Soft. Musculoskeletal: Normal range of motion. Neurological: Alert, oriented. Skin: Skin is warm. Nursing note and vitals reviewed. MEDICATIONS Current Facility-Administered Medications: acetaminophen (TYLENOL) tablet 650 mg, 650 mg, oral, Q4H PRN, Mell Curran MD, 650 mg at 06/16/24 1155 albuterol HFA (PROVENTIL HFA,VENTOLIN HFA,PROAIR HFA) 90 mcg/actuation inhaler 2 puff, 2 puff, inhalation, Q6H PRN (RT), Dilan Palmer MD ceFAZolin (ANCEF) 2,000 mg/100 mL in dextrose (premix) 2 g, 2 g, intravenous, Q8H GALINA, Rachel Barnes NP, Last Rate: 200 mL/hr at 06/20/24 2252, 2 g at 06/20/24 2252 cholecalciferol (VITAMIN D-3) tablet 5,000 Units, 5,000 Units, oral, Daily, Rachel Barnes NP, 5,000 Units at 06/20/24 0846 dapagliflozin propanediol (FARXIGA) tablet 10 mg, 10 mg, oral, Daily, Raj Huizar MD, 10 mg at 06/20/24 0848 dextrose oral liquid liquid 15 g, 15 g, oral, Q15 Min PRN OR dextrose (D10W) 10% bolus 250 mL, 250 mL, intravenous, Q15 Min PRN, Rachel Barnes, ALLY docusate sodium (COLACE) capsule 100 mg, 100 mg, oral, BID, Rachel Barnes NP, 100 mg at 06/20/24 2121 escitalopram (LEXAPRO) tablet 5 mg, 5 mg, oral, Daily, Coleen Samuels MD, 5 mg at 06/20/24 0859 ferrous sulfate delayed release tablet 65 mg of elemental iron, 65 mg of elemental iron, oral, Daily with breakfast, Rachel Barnes NP, 65 mg of elemental iron at 06/20/24 0848 fluticasone propionate (FLONASE) 50 mcg/actuation nasal spray 1 spray, 1 spray, each nostril, DailyPRN, Rachel Barnes NP glucagon injection 1 mg, 1 mg, intramuscular, Q30 Min PRN, Rachel Barnes, ALLY insulin glargine (LANTUS, SEMGLEE) 100 unit/mL injection 17 Units, 0.15 Units/kg, subcutaneous, Nightly, Rachel Barnes, ALLY, 17 Units at 06/20/24 2121 insulin lispro (HumaLOG, ADMELOG) 100 unit/mL injection 0-4 Units, 0-4 Units, subcutaneous, Nightly, Rachel Barnes, PAN DEVULCANIZER, 1 Units at 06/17/24 2305 insulin lispro (HumaLOG, ADMELOG) 100 unit/mL injection 0-5 Units, 0-5 Units, subcutaneous, TID with meals, Rachel Barnes NP, 2 Units at 06/20/24 182 insulin lispro (HumaLOG, ADMELOG) 100 unit/mL injection 6 Units, 0.05 Units/kg, subcutaneous, TID with meals, Rachel Barnes NP, 6 Units at 06/20/24 182 levothyroxine (SYNTHROID) tablet 75 mcg, 75 mcg, oral, QAM, Rachel Barnes PAN DEVULCANIZER, 75 mcg at 06/20/24 0533 magnesium oxide (MAG-OX) tablet 400 mg, 400 mg, oral, Daily, Seth Flores MD, 400 mg at 06/20/24 0848 metoprolol XL (TOPROL-XL) extended release tablet 50 mg, 50 mg, oral, Daily, Lizzie Hong MD, 50 mg at 06/20/24 1247 multivit dbfhpvlq-bwsu-YQ-calcium (THERA-M) tablet 1 tablet, 1 tablet, oral, Daily, Rachel Barnes NP, 1 tablet at 06/20/24 0848 nortriptyline (PAMELOR) capsule 10 mg, 10 mg, oral, Daily, Rachel Barnes NP, 10 mg at 06/20/24 0849 OLANZapine (ZyPREXA) 5 mg in sterile water 1 mL (5 mg/mL) syringe, 5 mg, intramuscular, Q6H PRN, Mell Curran MD pantoprazole DR (PROTONIX) extended release tablet 40 mg, 40 mg, oral, Daily, Rachel Barnes NP, 40 mg at 06/20/24 0848 potassium chloride ER (KLOR-CON) extended release tablet 40 mEq, 40 mEq, oral, Daily, Coleen Samuels MD, 40 mEq at 06/20/24 0849 rivaroxaban (XARELTO) tablet 20 mg, 20 mg, oral, Daily with dinner, Rachel Barnes NP, 20 mgat 06/20/24 1825 sacubitriL-valsartan (ENTRESTO) 24-26 mg tablet 0.5 tablet, 0.5 tablet, oral, BID, Seth Flores MD, 0.5 tablet at 06/20/24 2121 Lab/Radiology/Diagnostic Review: Recent Results (from the past 24 hour(s)) Magnesium Collection Time: 06/20/24 12:34 AM Result Value Ref Range Magnesium 2.0 1.4 - 2.5 mg/dL Renal function panel Collection Time: 06/20/24 12:34 AM Result Value Ref Range Sodium 140 135 - 145 mmol/L Potassium, pl 3.9 3.3 - 4.9 mmol/L Chloride 103 97 - 110 mmol/L CO2 27 22 - 32 mmol/L Anion gap 10 2 - 15 mmol/L BUN 16 6 - 25 mg/dL Creatinine 0.80 0.60 - 1.10 mg/dL Glucose 148 70 - 199 mg/dL Calcium 9.1 8.5 - 10.3 mg/dL Phosphorus, pl 4.4 2.3 - 4.5 mg/dL Albumin 3.2 (L) 3.5 - 5.0 g/dL CBC with auto differential Collection Time: 06/20/24 12:34 AM Result Value Ref Range WBC 5.9 3.8 - 9.9 K/cumm Hgb 12.1 11.9 - 15.5 g/dL Hct 38.5 35.6 - 45.5 % Plt 269 150 - 400 K/cumm MPV 9.5 9.1 - 12.3 fL RBC 3.79 (L) 3.90 - 5.20 M/cumm MCV 101.6 (H) 81.3 - 96.4 fL MCH 31.9 27.1 - 33.3 pg MCHC 31.4 (L) 32.3 - 35.7 g/dL RDW CV 12.8 11.1 - 14.9 % RDW SD 47.7 35.7 - 48.1 fL NRBC abs 0.00 0.00 - 0.01 K/cumm Differential, auto Collection Time: 06/20/24 12:34 AM Result Value Ref Range Neutrophil abs 3.5 1.5 - 6.5 K/cumm Imm gran abs 0.0 0.0 - 0.1 K/cumm Lymphocyte abs 1.5 0.8 - 3.3 K/cumm Monocyte abs 0.6 0.2 - 0.8 K/cumm Eosinophil abs 0.2 0.0 - 0.5 K/cumm Basophil abs 0.1 0.0 - 0.1 K/cumm Neutrophil pct 60.4 % Imm gran pct 0.5 % Lymphocyte pct 25.3 % Monocyte pct 10.2 % Eosinophil pct 2.6 % Basophil pct 1.0 % eGFR Collection Time: 06/20/24 12:34 AM Result Value Ref Range eGFR 83 >=60 mL/min/1.73 m2 POCT glucose Collection Time: 06/20/24 6:36 AM Result Value Ref Range Glucose, POC 132 70 - 199 mg/dL POCT glucose Collection Time: 06/20/24 12:45 PM Result Value Ref Range Glucose, POC 198 70 - 199 mg/dL POCT glucose Collection Time: 06/20/24 5:37 PM Result Value Ref Range Glucose, POC 197 70 - 199 mg/dL POCT glucose Collection Time: 06/20/24 8:40 PM Result Value Ref Range Glucose, POC 194 70 - 199 mg/dL Recent Labs Lab Units 06/14/24 1415 CLARITY U Clear COLOR U Yellow KETONES UR Negative NITRITE UR Negative SPEC GRAV U 1.019 UROBILINOGEN UR mg/dL <2.0 CTA Upper Extremity Right W WO Contrast Result Date: 06/07/2024 Narrative: EXAMINATION: CTA UPPER EXTREMITY RIGHT W WO CONTRAST HISTORY: Right upper arm swelling ORDER DATE: 06/06/2024 10:40 PM TECHNIQUE: Imaging protocol: Computed tomographic angiography of the right upper extremity with contrast, including non-contrast images if performed. 3D rendering (Not supervised by radiologist): MIP and/or 3D reconstructed images were created by the technologist. Contrast material: OPTIRAY 350; Contrast volume: 119 ml IV COMPARISON: CT CHEST PE (CTA) W CONTRAST 05/30/2024 FINDINGS: Tubes, catheters and devices: There is a PICC line inserted through the right basilicvein at the level of the distal arm. There is mild fat stranding within the anterior distal arm, without sizable hematoma or drainable fluid collection. No evidence of active extravasation. Pulmonaryarteries: There is a partially visualized curvilinear metallic structure within the right pulmonaryartery, similar to prior. Right subclavian artery: No acute findings. No occlusion or significant stenosis. Axillary artery: No acute findings. No occlusion or significant stenosis. Brachial artery: No acute findings. No occlusion or significant stenosis. Radial artery: No acute findings. No occlusion or significant stenosis. Ulnar artery: No acute findings. No occlusion or significant stenosis. Veins: Peripheral intravenous access is seen within the cephalic vein at the level of the antecubital fossa. Impression: 1. Patent arterial system of the right upper extremity as detailed above. 2. No evidence of hematoma or drainable fluid collection Stat report by [facility] Electronically signed by: Andrea Abernathy M.D. ECG 12 lead Result Date: 06/06/2024 Narrative: Vent Rate: 78 bpm RR Interval: 763 msec [place] Interval: 0 msec QRS Duration: 154 msec QT Interval: 473 msec QTC Interval: 506 msec P-R-T [place]: 0 - 23 - 94 degrees IMPRESSION: ATRIAL FIBRILLATION Occasional ventricular pacing INDETERMINATE AXIS Left bundle branch block ABNORMAL ECG Electronically Signed By: Dr. Shiloh Muhammad [facility] US Vein Duplex Upper Extremity Right Limited, Unilateral Result Date: 06/06/2024 Narrative: EXAMINATION: US VEIN DUPLEX UPPER EXTREMITY RIGHT LIMITED, UNILATERAL HISTORY: The patient is a 63-year-old female who presents with swelling in the right upper extremity. TECHNIQUE: Rightupper extremity venous duplex study was performed with hahn scale imaging, color Doppler imaging and spectral waveform analysis. FINDINGS: There is normal compressibility and phasicity in both internal jugular and subclavian veins as well as the right axillary, brachial, radial, ulnar, cephalic andbasilic veins. Imaging of these veins reveals no thrombus within the lumen. Impression: There is no evidence of acute DVT in the right upper extremity. Electronically signed by: Conrad Davila M.D. XR Chest Pa Lateral 2 Views Result Date: 06/06/2024 Narrative: EXAMINATION: XR CHEST PA LATERAL 2 VIEWS HISTORY: The patient is a 63-year-old female who has had placement of a PICC line. Comparison made with the previous study dated 12/26/2020. TECHNIQUE: AP and lateral view of the chest. FINDINGS: The distal tip of the right PICC line is in the distal superior vena cava. Cardiomegaly with aortic atherosclerosis. No failure. No active infiltrate. Impression: No failure. Electronically signed by: Conrad Davila M.D. IR PICC Line Placement Over 5 Years of Age Result Date: 06/05/2024 Narrative: EXAMINATION: IR PICC LINE PLACEMENT OVER 5 YEARS OF AGE DATE: 06/05/2024 2:05 PM HISTORY:sepsis Unsuccessful attempt at bedside PICC line placement by in-house vascular team. TECHNIQUE: The risks, benefits, and alternatives were discussed and informed consent was obtained. Prior to beginn ing the procedure, universal protocol was performed to confirm the patient's identity and the planned procedure. Maximum sterile barriers including cap, mask, hand hygiene, sterile gloves, sterile gown, large sterile drape, sterile gel, sterile ultrasound probe cover, and 2% chlorhexidine for cutaneous antisepsis were used. The skin over the right basilic vein was sterilely prepped, draped, and infiltrated with lidocaine. Prior to the procedure, this target vessel was evaluated by ultrasound and an image of the patent vessel demonstrating vessel patency was recorded in the patient's electronic medical record. This vessel was then accessed using real-time ultrasound guidance. A guidewire waspassed centrally using fluoroscopic guidance. The intravascular length from the access site to the right atrium was assessed. After dilating the tract, a 45 cm, 5-[place] dual-lumen PICC was inserted through the peel-away sheath. The peel-away sheath was then removed. The catheter was flushed and sec ured in place. A sterile dressing was applied. The final fluoroscopic image demonstrates the catheter with its tip at the cavoatrial junction. No complications were identified. The catheter is ready for immediate use. When treatment is completed, this catheter can be removed at the bedside according to standard hospital protocol. Impression: Successful PICC placement using ultrasound guidance. Electronically signed by: Blaine Nash M.D. XR Chest 1 View Result Date: 06/05/2024 Narrative: EXAMINATION: XR CHEST 1 VIEW HISTORY: The patient is a 63-year-old female who has had anattempted PICC line placement. Comparison made with the previous study dated 05/29/2024. TECHNIQUE:AP portable view of the chest. FINDINGS: Cardiomegaly with aortic atherosclerosis. No failure. No active infiltrate. Impression: Cardiomegaly. Electronically signed by: Conrad Davila M.D. ECG 12 lead Result Date: 06/02/2024 Narrative: Vent Rate: 86 bpm RR Interval: 697 msec OH Interval: 0 msec QRS Duration: 157 msec QT Interval: 470 msec QTC Interval: 513 msec P-R-T [place]: 0 - 38 - 88 degrees IMPRESSION: ATRIAL FIBRILLATION WITH ABERRANT CONDUCTION OR VENTRICULAR PREMATURE COMPLEXES LEFT BUNDLE BRANCH BLOCK [120+ ms QRS DURATION, 80+ ms Q/S IN V1/V2, 85+ ms R IN I/aVL/V5/V6] ABNORMAL ECG Compared to prior EKG, ventricular pacing is no longer present Electronically Signed By: Antonio Carlos MD ECG 12 lead Result Date: 06/02/2024 Narrative: Vent Rate: 76 bpm RR Interval: 782 msec OH Interval: 0 msec QRS Duration: 158 msec QT Interval: 494 msec QTC Interval: 525 msec P-R-T [place]: 0 - 116 - 120 degrees IMPRESSION: ATRIAL FIBRILLATION WITH demand ventricular pacemaker MARKED RIGHT AXIS DEVIATION [QRS AXIS > 100] INTRAVENTRICULAR CONDUCTION DELAY [130+ ms QRS DURATION] ABNORMAL ECG Compared to prior EKG, demand ventricular pacing is new Electronically Signed By: Antonio Carlos MD CT Abdomen Pelvis W Contrast Result Date: 06/01/2024 Narrative: EXAMINATION: CT ABDOMEN PELVIS W CONTRAST DATE: 06/01/2024 1:05 PM HISTORY: Sepsis. COMPARISON: 02/28/2017. TECHNIQUE: Transaxial computed tomographic images of the abdomen and pelvis were obtained after the administration of 119 mL of Optiray 350 intravenously. Multiplanar coronal and sagittal images were reformatted. FINDINGS: Similar scarring in the left lung base unchanged since 2017. There is cardiomegaly and mosaic attenuation in the lung bases suggestive of pulmonary edema. There is a small hiatal hernia. Cholecystectomy. Diffuse hepatic steatosis. The spleen, pancreas, and adrenal glands are unremarkable. Kidneys are unremarkable. No hydroureteronephrosis. Unopacified bladder is unremarkable. Uterus and adnexal structures are unremarkable. No free fluid in the pelvis. There is diverticulosis. No evidence of diverticulitis. The small bowel is unremarkable. Mild atherosclerotic calcifications in the aorta and branch vessels. Subcutaneous tissues are unremarkable. No pathologic by size criteria lymphadenopathy. Mild bilateral sacroiliac joint arthrosis. No acute fracture. No pathologic by size criteria lymphadenopathy. Impression: 1. Mosaic attenuation in the lung bases suggestive of interstitial pulmonary edema. 2. Diffuse hepatic steatosis. 3. Small hiatal hernia. 4. Trace left pleural effusion. 5. Additional chronic or incidental findings as above. Electronically signed by: Azeem Robins II, D.O. ECG 12 lead Result Date: 06/01/2024 Narrative: Vent Rate: 102 bpm RR Interval: 584 msec OH Interval: 0 msec QRS Duration: 149 msec QT Interval: 387 msec QTC Interval: 446 msec P-R-T [place]: 0 - 115 - 66 degrees IMPRESSION: ATRIAL FIBRILLATION WITH RAPID VENTRICULAR RESPONSE WITH ABERRANT CONDUCTION OR VENTRICULAR PREMATURE COMPLEXES INDETERMINATE AXIS INTRAVENTRICULAR CONDUCTION DELAY [130+ ms QRS DURATION] ABNORMAL ECG NO CHANGE FROM PREVIOUS TRACING NOTED Electronically Signed By: Antonio Carlos MD ECG 12 lead Result Date: 06/01/2024 Narrative: Vent Rate: 83 bpm RR Interval: 716 msec OH Interval: 0 msec QRS Duration: 154 msec QT Interval: 409 msec QTC Interval: 449 msec P-R-T [place]: 0 - 123 - 189 degrees IMPRESSION: ATRIAL FIBRILLATION INTRAVENTRICULAR CONDUCTION DELAY LATERAL MYOCARDIAL INFARCTION , OF INDETERMINATE AGE Electronically Signed By: Cristino Kingsley MD, [facility] ECG 12 lead Result Date: 05/31/2024 Narrative: Vent Rate: 74 bpm RR Interval: 810 msec OH Interval: 0 msec QRS Duration: 151 msec QT Interval: 449 msec QTC Interval: 476 msec P-R-T [place]: 0 - 102 - 146 degrees IMPRESSION: VENTRICULAR PACED RHYTHM Electronically Signed By: Cristino Kingsley MD, [facility] ECG 12 lead Result Date: 05/31/2024 Narrative: Vent Rate: 76 bpm RR Interval: 785 msec OH Interval: 0 msec QRS Duration: 150 msec QT Interval: 471 msec QTC Interval: 501 msec P-R-T [place]: 0 - 80 - 97 degrees IMPRESSION: ATRIAL FIBRILLATION WITH ABERRANT CONDUCTION OR VENTRICULAR PREMATURE COMPLEXES INTRAVENTRICULAR CONDUCTION DELAY [130+ ms QRS DURATION] ABNORMAL ECG Electronically Signed By: Dr. Shiloh Muhammad [facility] ECG 12 lead Result Date: 05/30/2024 Narrative: Vent Rate: 109 bpm RR Interval: 548 msec OH Interval: 0 msec QRS Duration: 149 msec QT Interval: 398 msec QTC Interval: 462 msec P-R-T [place]: 0 - 96 - 89 degrees IMPRESSION: ATRIAL FIBRILLATION WITH RAPID VENTRICULAR RESPONSE BORDERLINE RIGHT AXIS DEVIATION [QRS AXIS > 90] INTRAVENTRICULAR CONDUCTION DELAY [130+ ms QRS DURATION] ABNORMAL ECG Unchanged compared to an EKG done earlier on May 30, 2024 Electronically Signed By: Dr. Shiloh Muhammad [facility] CT Chest WO Contrast Result Date: 05/30/2024 Narrative: EXAMINATION: Computed tomography of the chest without intravenous contrast HISTORY: Right lower lobe pulmonary artery for and body TECHNIQUE: Transaxial computed tomographic images of the chest were obtained without intravenous contrast according to the standard protocol. COMPARISON: 05/30/[address] angiography. FINDINGS: Bilateral small pleural effusions and atelectasis. There is trace pulmonary edema. Heart is enlarged. Small volume pericardial effusion. Pacemaker defibrillator leads terminate in the right atrium and right ventricle. There left hilar calcified granulomas. There is a curvilinear density originating in the right lower lobe pulmonary artery and extending distally into a lateral basilar subsegmental branch vessel. Visualized portions of the upper abdomen demonstrate changes of cholecystectomy. No suspicious osseous lesions. Impression: 1. Redemonstrated curvilinear radiopaque density extending from the proximal right lower lobe pulmonary artery into a subsegmental lateral basilar branch favors a catheter or wire fragment. 2. Findings most suggestive of heart failure with cardiomegaly, small volume pericardial effusion, and small bilateral pleural effusions and mild pulmonary edema. Electronically signed by: Abilio Post M.D. Transthoracic Echo (TTE) Complete W Doppler/CF Result Date: 05/30/2024 Narrative: [place] [address] Echocardiogram Report Patient Name: LEI RODRIGUEZ V : 1960 Study Date: 05/30/2024 7:47:08 AM Gender: F Tech: Location: [place] [address] Ref Provider: TY MCFARLAND Height(Cm): 165 BSA: 2.43 Weight(Kg): 128.7 Heart Rate: 94 BP: 135/84 Quality:Good Order Provider: TY MCFARLAND PROCEDURES: Echocardiographic Report: Transthoracic echocardiogram with complete [...] 38.00 [ 10.00 - 36.00 ] mmHg E`0.05 m/s E/E` 19.29 Measurement Value Normal Range Measurement Value Normal Range 2D/M Mode Doppler- FINDINGS: Atrial Septum: Normal atrial septum. Left Ventricle: Mild enlargement of left ventriclecavity. Left ventricle not well visualized. Optison contrast [...] of right atrium. Linear artifact in right atriumsuggestive of catheter(s), pacemaker lead(s), or ICD lead(s). Aortic Valve: Aortic cusps appear mildly sclerotic. No evidence of hemodynamically significant aortic stenosis by Doppler. No aortic regurgitation. Mitral Valve: Normal structure of the mitral valve. Mild to moderate mitral valve regurgit ation. The regurgitation jet is eccentrically directed which [...] enlargement of left ventricle cavity. Left ventricle n ot well visualized. Optison contrast agent used to [...] directed which may underestimate the severity of mitralregurgitation. Tricuspid valve not well visualized. Estimated peak RVSP is 42 mmHg. Mild to moderate tricuspid regurgitation. Trivial pericardial effusion. Electronically Signed By: Coleen Cortez DO, FACDarlene, ANDREE, MELISSA 2024-05-30 09:18:05 CDT CC: CC: CC: XR Chest 1 View Result Date: 05/30/2024 Narrative: EXAMINATION: XR CHEST 1 VIEW History: Shortness of breath Impression: Single view chest exam similar for interpretation with comparison to prior from 03/07/2017. Correlation made with CT from the same day There are diffuse interstitial and airspace opacitiescompatible with moderate pulmonary edema. Likely small effusions. Heart is enlarged. There is a curvilinear density projecting over the right lower lung which corresponds to a catheter or wire in theright lower lobe pulmonary arteries when correlated with the CT examination. This finding is not present on the prior 2017 examination. The presence of this finding was discussed by Dr. Abernathy with Dr. Hollis and documented by Dr. Hollis in the medical record on 05/30/2024 at [facility]. Electronically signed by: Abilio Post M.D. ECG 12 lead Result Date: 05/30/2024 Narrative: Vent Rate: 86 bpm RR Interval: 697 msec OH Interval: 0 msec QRS Duration: 145 msec QT Interval: 438 msec QTC Interval: 481 msec P-R-T [place]: 0 - 101 - 95 degrees IMPRESSION: ATRIAL FIBRILLATION RIGHT AXIS DEVIATION [QRS AXIS > 100] INTRAVENTRICULAR CONDUCTION DELAY [130+ ms QRS DURATION] ABNORMAL ECG Unchanged compared to 05/29/2021 Electronically Signed By: Dr. Shiloh Muhammad [facility] CT Chest PE (CTA) W Contrast Result Date: 05/30/2024 Narrative: EXAMINATION: CT CHEST PE (CTA) W CONTRAST HISTORY: Chest pain ORDER DATE: 05/30/2024 3:20AM TECHNIQUE: CT chest images were acquired using a chest angiographic protocol with 3-D imaging optimized for PE is obtained [id number] mL of Optiray 350 IV. 2D Coronal and sagittal reformats were obtained. 3-D rendering (not supervised by radiologist) MIP and/or 3-D reconstructed images were created by the technologist. FINDINGS: Dual lead pacer device implanted in the left chest wall with leads in the right atrium and right ventricle. Pulmonary arteries: Dilated main pulmonary artery measuring 4.9 cm. Some of the segmental branches are not well assessed for exclusion of subtle emboli due to excessive motion. Otherwise centrally no pulmonary artery emboli. A dislodged catheter is visualized in the distal right pulmonary artery extending into the lobar and segmental right lower lobe pulmonary artery branch, image [id number] 134/coronal series 9. Aorta: Unremarkable. No aortic aneurysm. No aortic dissection. Lungs: Diffuse multilobar septal thickening, peribronchial thickening and increasedground-glass alveolar airspace opacity of the lung parenchyma representing findings of pulmonary interstitial edema. Pleural spaces: Mild left and trace to mild right pleural effusions. Heart: Four-chamber enlarged heart. Reflux of contrast within the hepatic veins and IVC may suggest right heart failure. Trace to mild pericardial effusion present. Lymph nodes: Multiple calcified mediastinal and hilar lymph nodes which suggest prior exposure to granulomatous disease. No lymphadenopathy. Diaphragm: There is a small hiatal hernia. Liver: Coarsened nodular hepatic parenchyma may suggest underlying chronic hepatocellular disease. Liver is prominent in size measuring 17.5 cm. Gallbladder and biliary ducts: Cholecystectomy. Bones/joints: No acute fracture. Soft tissues: Unremarkable. Impression: 1. Motion degraded evaluation of the pulmonary arteries. Some of the segmental branches are not well assessed for exclusion of subtle emboli. Otherwise centrally no pulmonary artery emboli. 2. Pulmonary arterial hypertension and dislodged the catheter visualized in the distal right pulmonary artery and right lower lobe lobar and segmental pulmonary artery branch. 3. CHF, pulmonary edema and small bilateral pleural effusions. 4. Possible congestive cirrhosis. Correlate with LFTs. 5.Additional findings as described above. Stat report by [facility] . Electronically signed by: Andrea Abernathy M.D. CT Cervical Spine WO Contrast Result Date: 05/30/2024 Narrative: EXAMINATION: CT CERVICAL SPINE WO CONTRAST HISTORY: Neck pain ORDER DATE: 05/29/2024 10:55 PM TECHNIQUE: Multiple helical axial images of the cervical spine were obtained without the administration of contrast. Coronal and sagittal reformatted images were included. FINDINGS: Bones: No acute fracture. Chronic mild C6 loss of vertebral body height present. Normal alignment. Mild right C3-C4 facet arthrosis. C3-C4 disc narrowing and partially calcified bulging disc contributing to [id number] central spinal stenosis. Disc osteophyte complex also contributing to [id number] central spinal stenosis at C4-C5 level. No significant disc bulge or herniation. No severe spinal canal stenosis. Uncovertebral joint hypertrophy contributing to multilevel bilateral neural foraminal stenosis. Lungs: Lung apices are normal. Soft tissues: Unremarkable. Impression: No acute cervical spine injury. Stat report by [facility] Stat report by [facility] Electronically signed by: Andrea Abernathy M.D. CT Head WO Contrast Result Date: 05/30/2024 Narrative: EXAMINATION: CT head without contrast HISTORY: Headache, new or worsening (Age >= 50y) TECHNIQUE: Noncontrast CT of the brain was performed with images acquired from skull base to vertex. COMPARISON: None available. FINDINGS: Brain: Global volume loss and cortical dilatation present. No hemorrhage. Mild chronic microvascular ischemic changes of the periventricular white matter. No mass effect. No edema. Cerebral ventricles: No ventriculomegaly. Paranasal sinuses: Visualized sinuses are unremarkable. No fluid levels. Mastoid air cells: Visualized mastoid air cells are well aerated. Bones: Unremarkable. No acute fracture. Soft tissues: Unremarkable. Impression: No acute intracranial findings. Stat report by [facility] Electronically signed by: Andrea Abernathy M.D. ECG 12 lead Result Date: 05/30/2024 Narrative: Vent Rate: 93 bpm RR Interval: 645 msec OH Interval: 0 msec QRS Duration: 97 msec QT Interval: 197 msec QTC Interval: 247 msec P-R-T [place]: 0 - 118 - 0 degrees IMPRESSION: ATRIAL FIBRILLATION WITH ABERRANT CONDUCTION OR VENTRICULAR PREMATURE COMPLEXES LOW QRS VOLTAGE [QRS DEFLECTION < 0.5/1.0 mV IN LIMB/CHEST LEADS] SEPTAL MYOCARDIAL INFARCTION , PROBABLY OLD [40+ ms Q WAVE IN V1/V2]Nonspecific IVCD LATERAL MYOCARDIAL INFARCTION , OF INDETERMINATE AGE [40+ ms Q WAVE AND/OR ST/T ABNORMALITY IN I/aVL/V5/V6] ABNORMAL ECG Electronically Signed By: Antonio Carlos MD ASSESSMENT/PLAN Controlled type 2 diabetes mellitus with chronic kidney disease, with long-term current use of insulin (HCC) Hypothyroidism Hypotension due to drugs Chronic diastolic congestive heart failure (CMS/HCC) (HCC) Endocarditis Urinary frequency Gastroesophageal reflux disease without esophagitis Paroxysmal atrial fibrillation (CMS/HCC) (HCC) Major depressive disorder CKD (chronic kidney disease) CKD ? Hypokalemia/hypomag. Recent endocarditis. Recurrent ICD firing. A fib. DM/HTN. Hx of CHF. Hypothyroidism. PLAN Renal fn is stable, ckd/gerald ocasio not indicated. Hold lasix, keep K over 4, Mg over 2. Cards ocasio, ICD interrogation, Hold Tikosyn/BB. Daily RFP. Will d/w cardiology Repeat CHANCE. 06/12, d/w cards, monitor k, mg and cr, recs as above, monitor microscopic hematuria, start mgo and kcl. 06/13, K and mg acceptable, rpt ua, continue K and mg at current dose. 06/14, k and mg stable, stable renal fn/lytes, continue daily RFP and mag. 06/15, same management, no changes. -06/16, k, mg stable, no reported cardiac rhythm issues, will follow. -06/17, BP low, k, mg, lytes stable, iv abx. -06/18, egfr 79, k, mg stable, dc all bp meds. -06/19, k ang mg dropping, bp low, on entresto and bb, will d/w cardiology, restart k and mg. I can be reached at [phone] with any concerns. Thank you Nancy Hartley MD for the consult. Seth Flores MD [employer] [phone] * Nancy Hartley MD - 06/20/2024 5:53 PM CDT Daily Progress Hospital day: Hospital Day: 11 Patient Information Name: Lei Rodriguez Date of : 1960 (63 y.o.) Date of Service: 06/20/2024 at 5:53 PM Subjective CHIEF COMPLAINT/ HOSPITAL COURSE No chief complaint on file. 63 y.o. female with a PMHx significant for A-fib, CHF, DM II, GERD, HTN, Intellectual disability, OAB, Sleep apnea, thyroid disease and endocarditis Patient presents to ED with chief complaint of Syncope and fall. 06/20: pt is seen at bedside, sitting up in chair, doing well; no new complaints. Family: sister at bedside Sitter is in room I spoke with nursing staff. We discussed the case in detail. All of their concerns were addressed. REVIEW OF SYSTEM: Review of Systems Constitutional: Negative for chills, fever and weight loss. HENT: Negative for congestion and sore throat. Eyes: Negative for discharge. Respiratory: Negative for cough, shortness of breath and wheezing. Cardiovascular: Negative for chest pain and leg swelling. Gastrointestinal: Negative for abdominal pain, constipation, diarrhea, nausea and vomiting. Genitourinary: Negative for dysuria, frequency and hematuria. Musculoskeletal: Negative for back pain and myalgias. Skin: Negative for rash. Neurological: Negative for dizziness, tremors, focal weakness, seizures, loss of consciousness and weakness. Psychiatric/Behavioral: Negative for depression and suicidal ideas. Objective OBJECTIVE Vitals: Most Recent : Vitals: 06/20/24 0753 06/20/24 0845 06/20/24 1208 06/20/24 1606 BP: 122/75 113/74 123/93 BP Location: Left arm Left arm Left arm Patient Position: Sitting Sitting Sitting Pulse: 99 89 54 107 Resp: 18 18 18 Temp: 37.1 ??C (98.7 ??F) 36.6 ??C (97.9 ??F) 36.5 ??C (97.7 ??F) TempSrc: Oral Oral Oral SpO2: 95% 97% 99% Weight: Height: 24hr Min/Max: Temp Min: 36.4 ??C (97.5 ??F) Max: 37.1 ??C (98.7 ??F) Pulse Min: 54 Max: 107 BP Min: 108/67 Max: 132/82 Resp Min: 18 Max: 18 SpO2 Min: 92 % Max: 99 % Intake/Output Summary (Last 24 hours) at 06/20/2024 1753 Last data filed at 06/20/2024 1609 Gross per 24 hour Intake 340 ml Output -- Net 340 ml PHYSICAL EXAM: Physical Exam Constitutional: Appearance: Normal appearance. She is well-developed. She is obese. HENT: Head: Normocephalic and atraumatic. Eyes: Conjunctiva/sclera: Conjunctivae normal. Pupils: Pupils are equal, round, and reactive to light. Cardiovascular: Rate and Rhythm: Normal rate and regular rhythm. Heart sounds: Normal heart sounds. Pulmonary: Effort: Pulmonary effort is normal. Breath sounds: Normal breath sounds. No wheezing or rales. Abdominal: General: Bowel sounds are normal. There is no distension. Palpations: Abdomen is soft. Tenderness: There is no abdominal tenderness. There is no guarding. Musculoskeletal: General: No tenderness. Normal range of motion. Cervical back: Normal range of motion and neck supple. Skin: General: Skin is warm and dry. Neurological: General: No focal deficit present. Mental Status: She is alert and oriented to person, place, and time. Cranial Nerves: No cranial nerve deficit. Psychiatric: Mood and Affect: Mood normal. Behavior: Behavior normal. LDA: PICC Double Lumen 06/05/24 Non-tunneled Power #1 Red, #2 Purple, Right Basilic;Upper arm (Active) Placement Date/Time: 06/05/24 1505 Catheter Time Out Checklist Completed: Yes Hand Hygiene Performed: Yes Site Prep: Chlorhexidine Site Prep Agent has Completely Dried Before Insertion: Yes All 5 Sterile Barriers or Appropriate Barriers Used (Gl... Number of days: 15 Lab/Radiology/Diagnostic Review: I have reviewed the pertinent laboratory, radiographic, and other diagnostic studies. Recent Results (from the past 24 hour(s)) POCT glucose Collection Time: 06/19/24 6:33 PM Result Value Ref Range Glucose, POC 220 (H) 70 - 199 mg/dL POCT glucose Collection Time: 06/19/24 8:54 PM Result Value Ref Range Glucose, POC 173 70 - 199 mg/dL Magnesium Collection Time: 06/20/24 12:34 AM Result Value Ref Range Magnesium 2.0 1.4 - 2.5 mg/dL Renal function panel Collection Time: 06/20/24 12:34 AM Result Value Ref Range Sodium 140 135 - 145 mmol/L Potassium, pl 3.9 3.3 - 4.9 mmol/L Chloride 103 97 - 110 mmol/L CO2 27 22 - 32 mmol/L Anion gap 10 2 - 15 mmol/L BUN 16 6 - 25 mg/dL Creatinine 0.80 0.60 - 1.10 mg/dL Glucose 148 70 - 199 mg/dL Calcium 9.1 8.5 - 10.3 mg/dL Phosphorus, pl 4.4 2.3 - 4.5 mg/dL Albumin 3.2 (L) 3.5 - 5.0 g/dL CBC with auto differential Collection Time: 06/20/24 12:34 AM Result Value Ref Range WBC 5.9 3.8 - 9.9 K/cumm Hgb 12.1 11.9 - 15.5 g/dL Hct 38.5 35.6 - 45.5 % Plt 269 150 - 400 K/cumm MPV 9.5 9.1 - 12.3 fL RBC 3.79 (L) 3.90 - 5.20 M/cumm MCV 101.6 (H) 81.3 - 96.4 fL MCH 31.9 27.1 - 33.3 pg MCHC 31.4 (L) 32.3 - 35.7 g/dL RDW CV 12.8 11.1 - 14.9 % RDW SD 47.7 35.7 - 48.1 fL NRBC abs 0.00 0.00 - 0.01 K/cumm Differential, auto Collection Time: 06/20/24 12:34 AM Result Value Ref Range Neutrophil abs 3.5 1.5 - 6.5 K/cumm Imm gran abs 0.0 0.0 - 0.1 K/cumm Lymphocyte abs 1.5 0.8 - 3.3 K/cumm Monocyte abs 0.6 0.2 - 0.8 K/cumm Eosinophil abs 0.2 0.0 - 0.5 K/cumm Basophil abs 0.1 0.0 - 0.1 K/cumm Neutrophil pct 60.4 % Imm gran pct 0.5 % Lymphocyte pct 25.3 % Monocyte pct 10.2 % Eosinophil pct 2.6 % Basophil pct 1.0 % eGFR Collection Time: 06/20/24 12:34 AM Result Value Ref Range eGFR 83 >=60 mL/min/1.73 m2 POCT glucose Collection Time: 06/20/24 6:36 AM Result Value Ref Range Glucose, POC 132 70 - 199 mg/dL POCT glucose Collection Time: 06/20/24 12:45 PM Result Value Ref Range Glucose, POC 198 70 - 199 mg/dL POCT glucose Collection Time: 06/20/24 5:37 PM Result Value Ref Range Glucose, POC 197 70 - 199 mg/dL Assessment/Plan ASSESSMENT/PLAN VFib. ICD placed; planning for Bi V ICD after completing antibiotics; Endocarditis. Patient is on Ancef; these consulted recommend to complete therapy until 06/22 due to presence of AICD; Persistent atrial fibrillation. Patient is on Tikosyn 500 mcg b.i.d. with plans to cardiovert at later date; on Xarelto for anticoagulation; Clot and [place] ; probably an appendage clot; hence synchronized cardioversion was canceled. Need to follow-up with EP outpatient. chronic systolic congestive Heart failure. EF of 30%; on Entresto; compensated; T2 dm; continue with insulin; fingersticks blood sugar has been stable; Hypothyroidism. Patient is on levothyroxine; Depression. Patient on Lexapro; and nortriptyline. History of intellectual disability/developmental delay. Sister is at bedside; Full Code DVT Prophylaxis with - Xarelto D/W RN, staff, discussed case at IDR; discussed with sister at bedside Medical Decision Making complexity: Moderate Expected date of discharge: 06/22 Discharge disposition: Home Barriers for discharge: Waiting for to complete IV antibiotics; Nancy Hartley MD 06/20/24 5:53 PM Voice recognition software [employer] was used dictate and transcribe this document. Developer Advisor variances may occur. Despite proofreading, typographical errors may occur. * Cora Clarke PTA - 06/20/2024 3:28 PM CDT Physical Therapy Attempted treatment at 3:28 PM Pt refused skilled services. Per pt's sister present at bedside pt was upset stating , The doctor said she can't leave til Tuesday, and she's upset about it. Cora Clarke PTA 06/20/24 3:29 PM * Suleman Valentine, [facility] - 06/20/2024 2:58 PM CDT Pharmacy Medication Reconciliation Note Patient Lei Rodriguez 1960 - prior to admission home medication list was reviewed by pharmacy. Prior to Admission medications Medication Sig Start Date End Date Taking? Authorizing Provider albuterol HFA (PROVENTIL HFA,VENTOLIN HFA,PROAIR HFA) 90 mcg/actuation inhaler Inhale 2 puffs every6 (six) hours as needed for wheezing ProviderNica MD BASAGLAR 100 unit/mL (3 mL) pen for injection Inject 18 Units under the skin daily 02/09/24 ProviderNica MD carvediloL (COREG) 25 mg tablet Take 1 tablet (25 mg total) by mouth 2 (two) times a day with meals05/06/17 Nica Muniz MD ceFAZolin (ANCEF) 2,000 mg/100 mL IVPB Infuse 100 mL (2 g total) into a venous catheter every 8 (eight) hours for 14 days 06/08/24 06/22/24 Coleen Samuels MD cholecalciferol (VITAMIN D-3) 5,000 unit tablet Take 1 tablet (5,000 Units total) by mouth daily Nica Muniz MD dilTIAZem (CARDIZEM) 30 mg tablet Take 1 tablet (30 mg total) by mouth 2 (two) times a day 04/28/17 Nica Muniz MD docusate sodium (COLACE) 100 mg capsule Take 1 capsule (100 mg total) by mouth 2 (two) times a day 09/23/17 Nica Muniz MD dofetilide (TIKOSYN) 500 mcg capsule Take 1 capsule (500 mcg total) by mouth 2 (two) times a day for 711 doses 06/08/24 05/30/25 Coleen Samuels MD Entresto 24-26 mg tablet Take 1 tablet by mouth 2 (two) times a day 09/11/21 Nica Muniz MD escitalopram (LEXAPRO) 10 mg tablet Take 1 tablet (10 mg total) by mouth daily 12/12/23 Nica Muniz MD Farxiga 10 mg tablet Take 1 tablet (10 mg total) by mouth daily 06/01/22 Nica Muniz MD ferrous sulfate 325 mg (65 mg of elemental iron) tablet Take 1 tablet (325 mg total) by mouth dailywith breakfast Nica Muniz MD fluticasone propionate (FLONASE) 50 mcg/actuation nasal spray Administer 1 spray into each nostril daily as needed for rhinitis Nica Muniz MD furosemide (LASIX) 40 mg tablet Take 1 tablet (40 mg total) by mouth daily 04/02/24 Nica Muniz MD Gemtesa 75 mg tablet Take 1 tablet by mouth daily Nica Muniz MD levothyroxine (SYNTHROID) 75 mcg tablet Take 1 tablet (75 mcg total) by mouth every morning Nica Muniz MD midodrine (PROAMATINE) 5 mg tablet Take 1 tablet (5 mg total) by mouth 3 (three) times a day beforemeals 06/08/24 07/08/24 Coleen Samuels MD multivit gnxfagkb-djbl-FA-calcium (THERA-M) 9 mg iron-400 mcg tablet Take 1 tablet by mouth daily Nica Muniz MD nortriptyline (PAMELOR) 10 mg capsule Take 1 capsule (10 mg total) by mouth daily 05/18/24 Nica Muniz MD NovoLOG 100 unit/mL (3 mL) pen for injection Inject 10 Units under the skin 3 (three) times a day with meals Plus slide 07/18/23 Nica Muniz MD omeprazole (PriLOSEC) 20 mg capsule Take 1 capsule (20 mg total) by mouth daily Nica Muniz MD potassium chloride ER 20 mEq CR tablet Take 1 tablet (20 mEq total) by mouth daily 01/20/24 Nica Muniz MD Xarelto 20 mg tablet Take 1 tablet (20 mg total) by mouth daily with dinner Nica Muniz MD The patient???s home medication list has been reconciled and updated as follows: - Orders that were changed (doses/frequency/formulation): none - Additional comments/recommendations: Consistent with recent discharge on 06/08/24 plus dispense history Pt has been readmitted since 06/11 - changes have been made since Sources of information for this medication reconciliation include: hospital medical records and prescription fill history Harsh Valentine, Pharm.D, [facility] 06/20/2024 2:56 PM * Lizzie Hong MD - 06/20/2024 12:19 PM CDT [facility] - Cardiology [facility] Progress Note Admit Date: 06/10/2024 11:41 PM @HDAYS@ PCP: Oswaldo Serrano MD Patient seen and examined Chart , telemtry reviewed Symptoms Patient denies chest pain, dyspnea, palpitations, sweating or syncope.Sitting in chair Data Vitals: 06/19/24 1951 06/20/24 0424 06/20/24 0753 06/20/24 1208 BP: 132/82 108/67 122/75 113/74 BP Location: Right arm Right arm Left arm Left arm Patient Position: Sitting Sitting Sitting Sitting Pulse: 101 99 99 54 Resp: 18 18 18 18 Temp: 36.4 ??C (97.5 ??F) 36.9 ??C (98.4 ??F) 37.1 ??C (98.7 ??F) 36.6 ??C (97.9 ??F) TempSrc: Oral Oral Oral Oral SpO2: 96% 92% 95% 97% Weight: Height: Intake/Output Summary (Last 24 hours) at 06/20/2024 1219 Last data filed at 06/20/2024 0757 Gross per 24 hour Intake 220 ml Output -- Net 220 ml Lab Results Component Value Date WBC 5.9 06/20/2024 HGB 12.1 06/20/2024 HCT 38.5 06/20/2024 Lab Results Component Value Date SODIUM 140 06/20/2024 SODIUM 138 06/19/2024 SODIUM 136 06/17/2024 POTASSIUM 3.9 06/20/2024 POTASSIUM 3.9 06/19/2024 POTASSIUM 4.5 06/17/2024 CHLORIDE 103 06/20/2024 CHLORIDE 101 06/19/2024 CHLORIDE 100 06/17/2024 CO2 27 06/20/2024 CO2 25 06/19/2024 CO2 26 06/17/2024 CREATININE 0.80 06/20/2024 CREATININE 0.70 06/19/2024 CREATININE 0.84 06/17/2024 GLUCOSE 132 06/20/2024 GLUCOSE 148 06/20/2024 GLUCOSE 173 06/19/2024 GLUCOSE 220 (H) 06/19/2024 GLUCOSE 132 06/19/2024 GLUCOSE 208 (H) 06/17/2024 CALCIUM 9.1 06/20/2024 CALCIUM 9.2 06/19/2024 CALCIUM 9.1 06/17/2024 No results found for: PTT No results found for: PT No results found for: INR No results found for: BNP No components found for: TROPONIN No results found for: CHOL , TRIG , HDL , LDLCALC Lab Results Component Value Date ALBUMIN 3.2 (L) 06/20/2024 ALBUMIN 3.2 (L) 06/19/2024 ALBUMIN 3.3 (L) 06/17/2024 No components found for: MAGMGDL No results found for: TSH No results found for: T3FREE No results found for: W9ANOMA Meds MEDICATIONS FOR CURRENT ENCOUNTER: SCHEDULED MEDICATIONS: Scheduled Medications Medication Dose Route Frequency ceFAZolin (ANCEF) 2,000 mg/100 mL in dextrose (premix) 2 g 2 g intravenous Q8H GALINA cholecalciferol (VITAMIN D-3) tablet 5,000 Units 5,000 Units oral Daily dapagliflozin propanediol (FARXIGA) tablet 10 mg 10 mg oral Daily docusate sodium (COLACE) capsule 100 mg 100 mg oral BID escitalopram (LEXAPRO) tablet 5 mg 5 mg oral Daily ferrous sulfate delayed release tablet 65 mg of elemental iron 65 mg of elemental iron oral Daily with breakfast insulin glargine (LANTUS, SEMGLEE) 100 unit/mL injection 17 Units 0.15 Units/kg subcutaneous Nightly insulin lispro (HumaLOG, ADMELOG) 100 unit/mL injection 0-4 Units 0-4 Units subcutaneous Nightly insulin lispro (HumaLOG, ADMELOG) 100 unit/mL injection 0-5 Units 0-5 Units subcutaneous TID with meals insulin lispro (HumaLOG, ADMELOG) 100 unit/mL injection 6 Units 0.05 Units/kg subcutaneous TID withmeals levothyroxine (SYNTHROID) tablet 75 mcg 75 mcg oral QAM magnesium oxide (MAG-OX) tablet 400 mg 400 mg oral Daily multivit mvzlfdfg-yidt-NS-calcium (THERA-M) tablet 1 tablet 1 tablet oral Daily nortriptyline (PAMELOR) capsule 10 mg 10 mg oral Daily pantoprazole DR (PROTONIX) extended release tablet 40 mg 40 mg oral Daily potassium chloride ER (KLOR-CON) extended release tablet 40 mEq 40 mEq oral Daily rivaroxaban (XARELTO) tablet 20 mg 20 mg oral Daily with dinner sacubitriL-valsartan (ENTRESTO) 24-26 mg tablet 0.5 tablet 0.5 tablet oral BID CONTINUOUS MEDICATIONS: Continuous Medications Medication Dose Last Rate PRN MEDICATIONS: PRN Medications Medication Dose Route Frequency Last Admin acetaminophen (TYLENOL) tablet 650 mg 650 mg oral Q4H PRN 650 mg at 06/16/24 1155 albuterol HFA (PROVENTIL HFA,VENTOLIN HFA,PROAIR HFA) 90 mcg/actuation inhaler 2 puff 2 puff inhalation Q6H PRN (RT) dextrose oral liquid liquid 15 g 15 g oral Q15 Min PRN Or dextrose (D10W) 10% bolus 250 mL 250 mL intravenous Q15 Min PRN fluticasone propionate (FLONASE) 50 mcg/actuation nasal spray 1 spray 1 spray each nostril Daily PRN glucagon injection 1 mg 1 mg intramuscular Q30 Min PRN OLANZapine (ZyPREXA) 5 mg in sterile water 1 mL (5 mg/mL) syringe 5 mg intramuscular Q6H PRN Allergies Allergen Reactions Sulfa (Sulfonamide Antibiotics) Review of Systems: All systems were reviewed. Pertinent positives are mentioned above. Exam General appearance: alert, cooperative, no distress Neck: No JVD. No carotid Bruit Chest: Decreased air entry bilaterally,No added sounds Cardiovascular: regular rate, rhythm, normal S1 and S2, without rub, gallops PSM 2/6 Abdomen: soft without mass, non-tender, with normal bowel sounds Extremities: no clubbing, cyanosis or edema. Assessment /Plan Episode of syncope -secondary to VF , severe LV dysfunction --troponins are normal No recurrence V-fib. -5 episodes of VFib with appropriate ICD firing. Keep pottasium greater than 4, Mg greater than 2 - previous LHC that was negative for CAD. Given normal troponin no need for IP cath. Questionable endocarditis. -no vegetations seen on CHANCE last admission. - to continue antibiotics as per Infectious Disease until 06-09-24 Persistent Atrial fibrillation. - CHANCE 05/31/24 that showed left atrial appendage clot therefore no CV - placed on tikosyn 500 mcg BID with plans to CV at later date. -On xarelto for AC. Rate fast on occasions Dislodged catheter. in pulmonary artery noted on CT chest and CHANCE last admission. Chronic systolic congestive heart failure. -Clinically compensated at this time. -EF 30% by echo last admit. Continue Entresto. Add beta danny closely monitor heart rate is euvolemic not requiring diuretics Diabetes type 2 -per hospitalist Hypothyroid -treated Lizzie Hong MD * Deric Wagoner NP - 06/20/2024 11:17 AM CDT Infectious Disease Progress Note Consulting Physician: Eben Pettit MD. Reason for consult: Ongoing IV antibiotic therapy new admission for syncope Interval history/review of systems Afebrile. No leukocytosis. Pt is on room air. Pt is tearful and somewhat violent. Does not want to stay in hospital until this weekend. Sitter and family at bedside Anti-infectives (From admission, onward) Start Dose/Rate Route Frequency Ordered Stop 06/11/24 0100 ceFAZolin (ANCEF) 2,000 mg/100 mL in dextrose (premix) 2 g 2 g 200 mL/hr over 30 Minutes intravenous Every 8 hours scheduled 06/11/24 0036 06/21/24 6219 Objective: Vitals: 24hr Min/Max: Temp Min: 36.3 ??C (97.4 ??F) Max: 37.1 ??C (98.7 ??F) Pulse Min: 89 Max: 101 BP Min: 108/67 Max: 132/82 Resp Min: 18 Max: 18 SpO2 Min: 92 % Max: 99 % Most Recent : Vitals: 06/19/24 1611 06/19/24 1951 06/20/24 0424 06/20/24 0753 BP: 123/78 132/82 108/67 122/75 BP Location: Right arm Right arm Right arm Left arm Patient Position: Sitting Sitting Sitting Sitting Pulse: 89 101 99 99 Resp: 18 18 18 18 Temp: 36.4 ??C (97.5 ??F) 36.4 ??C (97.5 ??F) 36.9 ??C (98.4 ??F) 37.1 ??C (98.7 ??F) TempSrc: Oral Oral Oral Oral SpO2: 99% 96% 92% 95% Weight: Height: Physical Exam: General appearance: alert, cooperative, no distress HEENT: (-)icterus, Oropharnyx is normal, forehead with stitches, site is clean Neck: No palpable LN Lungs: breath sounds normal and symmetric; minimal respiratory effort, no r/w/c Heart: normal S1 and S2, no m/r/g Abdomen: soft without mass, non-tender, +bowel sounds, no HSM Extremities/Skin: no gross deformities, FROM, no new rashes, no ulcerations Vascular: no Edema, pulses present bilaterally Neuro: No focal deficits Psych: Appropriate mood and affect Double-lumen PICC line right upper extremity placed 06/05, site is clean Labs Reviewed. Recent Labs Lab Units 06/20/24 003 WBC K/cumm 5.9 HEMOGLOBIN g/dL 12.1 HEMATOCRIT % 38.5 PLATELETS K/cumm 269 Lab Results Component Value Date WBC 5.9 06/20/2024 HGB 12.1 06/20/2024 HCT 38.5 06/20/2024 MCV 101.6 (H) 06/20/2024 LABPLAT 269 06/20/2024 Recent Labs Lab Units 06/20/24 0034 06/19/24 0429 06/17/24 2351 BUN SERUM mg/dL 16 17 20 CREATININE mg/dL 0.80 0.70 0.84 Lab Results Component Value Date ALT 5 (L) 06/08/2024 AST 21 06/08/2024 ALKPHOS 217 (H) 06/08/2024 BILITOT 0.5 06/08/2024 Cultures Blood culture 06/13 no growth Urinalysis with no significant signs of infection on 06/12 06/14 UA neg Imaging CTA right upper extremity with no evidence of hematoma or drainable fluid collection. Patent arterial system. No evidence of DVT Assessment: MSSA bacteremia Called microlab during last admission, [facility] blood cultures 05/25 NG. blood cultures were positive for Staph aureus 05/21 and 05/22 Documented at outside hospital, unknown date so far will follow-up with [facility]. 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 Discussed case with Dr. Neli Hutchinson during last admission She underwent CHANCE, with no visible valve vegetation. Repeat blood cultures 05/30 no growth She has AICD in place. There was a clot in [place], probably an appendage clot, hence synchronized Cardioversion was canceled on last admission. Electrophysiology/Cardiology team was following and there was plan for Bi V ICD after completing antibiotic course. Blood cultures were negative at outside hospital from 05/25, blood cultures negative at this facility from 05/30 CT abdomen and pelvis 06/01 With no significant infectious findings Nausea vomiting/syncope due to VF/fall Cardiology is following Dislodged catheter/lead.. PA Atrial fibrillation CHF GERD Hypertension Obstructive sleep apnea Thyroid disease Intellectual disability Plan: Continue on Ancef to complete therapy till 06/22, due to presence of AICD. -blood cultures from 05/30 no growth. New blood cultures were ordered due to fever 06/13 . -IR guided PICC line placement on 06/05. Right upper extremity, Dopplers with no DVT, CTA with -no hematoma/fluid collection. -chest x-ray 06/14 no new infiltrate -Urine 06/14 no signs of infection -Blood cx 06/13 no growth Deric Wagoner NP 06/20/2024 [facility] Office: [phone] Fax: [phone] Cosigned by Manuel Ludwig MD at 06/28/2024 10:16 PM CDT * Seth Flores MD - 06/19/2024 9:13 PM CDT Nephrology Progress Note [facility] SUBJECTIVE 06/19 No change. Bp low. All labs reviewed. 06/18 No change. Labs stable. Bp still low. 06/17 Confused, needs sitter. K 4.5 Mg 2.0 All labs reviewed. 06/16 Confused but pleasant tonight. All labs reviewed. K, mg ok. No cardiac issues. Voiding. 06/15 Out of restraints. Doing better. Labs stable. 06/14 Calmer today. Remains in restraints. K and mg okay. Incontinent of urine. No further dysrhythmia. All labs and data reviewed. 06/13 Appears comfortable. All labs and data reviewed. K 3.9, mg 2.0. No further dysrhythmia reported. Uncooperative and agitated earlier. 06/12 Overall stable. All labs and data reviewed. Bp soft, confused. 2 plus blood in urine. OBJECTIVE Vitals: Vitals: 06/19/24 0805 06/19/24 1140 06/19/24 1611 06/19/24 1951 BP: 100/72 110/72 123/78 132/82 BP Location: Right arm Right arm Right arm Right arm Patient Position: Sitting Lying Sitting Sitting Pulse: 100 97 89 101 Resp: 18 18 18 Temp: 36.4 ??C (97.5 ??F) 36.3 ??C (97.4 ??F) 36.4 ??C (97.5 ??F) 36.4 ??C (97.5 ??F) TempSrc: Oral Oral Oral Oral SpO2: 97% 97% 99% 96% Weight: Height: No intake or output data in the 24 hours ending 06/19/24 2213 REVIEW OF SYSTEMS Review of Systems Constitutional: Negative. HENT: Negative. Eyes: Negative. Respiratory: Negative. Cardiovascular: Negative. Gastrointestinal: Negative. Genitourinary: Negative. Musculoskeletal: Negative. Skin: Negative. Allergic/Immunologic: Negative. Hematological: Negative. All other systems reviewed and are negative. PHYSICAL EXAM Physical Exam Constitutional: Appears well-developed. HENT: wnl Head: Normocephalic. Eyes: Pupils are equal, round, and reactive to light. Neck: Normal range of motion. Neck supple. Cardiovascular: Normal rate. Pulmonary/Chest: Effort normal and breath sounds normal. Abdominal: Soft. Musculoskeletal: Normal range of motion. Neurological: Alert, oriented. Skin: Skin is warm. Nursing note and vitals reviewed. MEDICATIONS Current Facility-Administered Medications: acetaminophen (TYLENOL) tablet 650 mg, 650 mg, oral, Q4H PRN, Mell Curran MD, 650 mg at 06/16/24 1155 albuterol HFA (PROVENTIL HFA,VENTOLIN HFA,PROAIR HFA) 90 mcg/actuation inhaler 2 puff, 2 puff, inhalation, Q6H PRN (RT), BrothDilan rose MD ceFAZolin (ANCEF) 2,000 mg/100 mL in dextrose (premix) 2 g, 2 g, intravenous, Q8H GALINA, Rachel Barnes, PAN DEVULCANIZER, Last Rate: 200 mL/hr at 06/19/24 1620, 2 g at 06/19/24 1620 cholecalciferol (VITAMIN D-3) tablet 5,000 Units, 5,000 Units, oral, Daily, Rachel Barnes NP, 5,000 Units at 06/19/24 0815 dapagliflozin propanediol (FARXIGA) tablet 10 mg, 10 mg, oral, Daily, Raj Huizar MD, 10 mg at 06/19/24814 dextrose oral liquid liquid 15 g, 15 g, oral, Q15 Min PRN OR dextrose (D10W) 10% bolus 250 mL, 250 mL, intravenous, Q15 Min PRN, Rachel Barnes, ALLY docusate sodium (COLACE) capsule 100 mg, 100 mg, oral, BID, Rachel Barnes NP, 100 mg at 06/19/242054 escitalopram (LEXAPRO) tablet 5 mg, 5 mg, oral, Daily, Coleen Samuels MD, 5 mg at 06/19/24815 ferrous sulfate delayed release tablet 65 mg of elemental iron, 65 mg of elemental iron, oral, Daily with breakfast, Rachel Barnes NP, 65 mg of elemental iron at 06/19/24814 fluticasone propionate (FLONASE) 50 mcg/actuation nasal spray 1 spray, 1 spray, each nostril, DailyPRN, Rachel Banres NP glucagon injection 1 mg, 1 mg, intramuscular, Q30 Min PRN, Rachel Barnes NP insulin glargine (LANTUS, SEMGLEE) 100 unit/mL injection 17 Units, 0.15 Units/kg, subcutaneous, Nightly, Rachel Barnes NP, 17 Units at 06/19/242054 insulin lispro (HumaLOG, ADMELOG) 100 unit/mL injection 0-4 Units, 0-4 Units, subcutaneous, Nightly, Rachel Barnes, ALLY, 1 Units at 06/17/242304 insulin lispro (HumaLOG, ADMELOG) 100 unit/mL injection 0-5 Units, 0-5 Units, subcutaneous, TID with meals, Rachel Barnes NP, 2 Units at 06/19/241839 insulin lispro (HumaLOG, ADMELOG) 100 unit/mL injection 6 Units, 0.05 Units/kg, subcutaneous, TID with meals, Rachel Barnes NP, 6 Units at 06/19/24 1838 levothyroxine (SYNTHROID) tablet 75 mcg, 75 mcg, oral, QAM, Rachel Barnes, PAN DEVULCANIZER, 75 mcg at 06/19/24 0535 magnesium oxide (MAG-OX) tablet 400 mg, 400 mg, oral, Daily, Seth Flores MD, 400 mg at 06/19/24 0815 multivit ntitjmuc-gsgn-TQ-calcium (THERA-M) tablet 1 tablet, 1 tablet, oral, Daily, Rachel Barnes, PAN DEVULCANIZER, 1 tablet at 06/19/2415 nortriptyline (PAMELOR) capsule 10 mg, 10 mg, oral, Daily, Rachel Barnes PAN DEVULCANIZER, 10 mg at 06/19/2415 OLANZapine (ZyPREXA) 5 mg in sterile water 1 mL (5 mg/mL) syringe, 5 mg, intramuscular, Q6H PRN, Mell Curran MD pantoprazole DR (PROTONIX) extended release tablet 40 mg, 40 mg, oral, Daily, Rachel Barnes NP, 40 mg at 06/19/2416 potassium chloride ER (KLOR-CON) extended release tablet 40 mEq, 40 mEq, oral, Daily, Coleen Samuels MD, 40 mEq at 06/19/24814 rivaroxaban (XARELTO) tablet 20 mg, 20 mg, oral, Daily with dinner, Rachel Barnes NP, 20 mgat 06/19/241837 sacubitriL-valsartan (ENTRESTO) 24-26 mg tablet 1 tablet, 1 tablet, oral, BID, Rachel Barnes NP, 1 tablet at 06/19/242054 spironolactone (ALDACTONE) split tablet 12.5 mg, 12.5 mg, oral, Daily, Raj Huizar MD, 12.5 mg at 06/19/2415 Lab/Radiology/Diagnostic Review: Recent Results (from the past 24 hour(s)) Magnesium Collection Time: 06/19/24 4:29 AM Result Value Ref Range Magnesium 1.8 1.4 - 2.5 mg/dL Renal function panel Collection Time: 06/19/24 4:29 AM Result Value Ref Range Sodium 138 135 - 145 mmol/L Potassium, pl 3.9 3.3 - 4.9 mmol/L Chloride 101 97 - 110 mmol/L CO2 25 22 - 32 mmol/L Anion gap 12 2 - 15 mmol/L BUN 17 6 - 25 mg/dL Creatinine 0.70 0.60 - 1.10 mg/dL Glucose 132 70 - 199 mg/dL Calcium 9.2 8.5 - 10.3 mg/dL Phosphorus, pl 4.0 2.3 - 4.5 mg/dL Albumin 3.2 (L) 3.5 - 5.0 g/dL eGFR Collection Time: 06/19/24 4:29 AM Result Value Ref Range eGFR >90 >=60 mL/min/1.73 m2 POCT glucose Collection Time: 06/19/24 6:29 AM Result Value Ref Range Glucose, POC 154 70 - 199 mg/dL POCT glucose Collection Time: 06/19/24 11:13 AM Result Value Ref Range Glucose, POC 165 70 - 199 mg/dL POCT glucose Collection Time: 06/19/24 6:33 PM Result Value Ref Range Glucose, POC 220 (H) 70 - 199 mg/dL POCT glucose Collection Time: 06/19/24 8:54 PM Result Value Ref Range Glucose, POC 173 70 - 199 mg/dL Recent Labs Lab Units 06/14/24 1415 CLARITY U Clear COLOR U Yellow KETONES UR Negative NITRITE UR Negative SPEC GRAV U 1.019 UROBILINOGEN UR mg/dL <2.0 CTA Upper Extremity Right W WO Contrast Result Date: 06/07/2024 Narrative: EXAMINATION: CTA UPPER EXTREMITY RIGHT W WO CONTRAST HISTORY: Right upper arm swelling ORDER DATE: 06/06/2024 10:40 PM TECHNIQUE: Imaging protocol: Computed tomographic angiography of the right upper extremity with contrast, including non-contrast images if performed. 3D rendering (Not supervised by radiologist): MIP and/or 3D reconstructed images were created by the technologist. Contrast material: OPTIRAY 350; Contrast volume: 119 ml IV COMPARISON: CT CHEST PE (CTA) W CONTRAST 05/30/2024 FINDINGS: Tubes, catheters and devices: There is a PICC line inserted through the right basilicvein at the level of the distal arm. There is mild fat stranding within the anterior distal arm, without sizable hematoma or drainable fluid collection. No evidence of active extravasation. Pulmonaryarteries: There is a partially visualized curvilinear metallic structure within the right pulmonaryartery, similar to prior. Right subclavian artery: No acute findings. No occlusion or significant stenosis. Axillary artery: No acute findings. No occlusion or significant stenosis. Brachial artery: No acute findings. No occlusion or significant stenosis. Radial artery: No acute findings. No occlusion or significant stenosis. Ulnar artery: No acute findings. No occlusion or significant stenosis. Veins: Peripheral intravenous access is seen within the cephalic vein at the level of the antecubital fossa. Impression: 1. Patent arterial system of the right upper extremity as detailed above. 2. No evidence of hematoma or drainable fluid collection Stat report by [facility] Electronically signed by: Andrea Abernathy M.D. ECG 12 lead Result Date: 06/06/2024 Narrative: Vent Rate: 78 bpm RR Interval: 763 msec [place] Interval: 0 msec QRS Duration: 154 msec QT Interval: 473 msec QTC Interval: 506 msec P-R-T [place]: 0 - 23 - 94 degrees IMPRESSION: ATRIAL FIBRILLATION Occasional ventricular pacing INDETERMINATE AXIS Left bundle branch block ABNORMAL ECG Electronically Signed By: Dr. Shiloh Muhammad [facility] US Vein Duplex Upper Extremity Right Limited, Unilateral Result Date: 06/06/2024 Narrative: EXAMINATION: US VEIN DUPLEX UPPER EXTREMITY RIGHT LIMITED, UNILATERAL HISTORY: The patient is a 63-year-old female who presents with swelling in the right upper extremity. TECHNIQUE: Rightupper extremity venous duplex study was performed with hahn scale imaging, color Doppler imaging and spectral waveform analysis. FINDINGS: There is normal compressibility and phasicity in both internal jugular and subclavian veins as well as the right axillary, brachial, radial, ulnar, cephalic andbasilic veins. Imaging of these veins reveals no thrombus within the lumen. Impression: There is no evidence of acute DVT in the right upper extremity. Electronically signed by: Conrad Davila M.D. XR Chest Pa Lateral 2 Views Result Date: 06/06/2024 Narrative: EXAMINATION: XR CHEST PA LATERAL 2 VIEWS HISTORY: The patient is a 63-year-old female who has had placement of a PICC line. Comparison made with the previous study dated 12/26/2020. TECHNIQUE: AP and lateral view of the chest. FINDINGS: The distal tip of the right PICC line is in the distal superior vena cava. Cardiomegaly with aortic atherosclerosis. No failure. No active infiltrate. Impression: No failure. Electronically signed by: Conrad Davila M.D. IR PICC Line Placement Over 5 Years of Age Result Date: 06/05/2024 Narrative: EXAMINATION: IR PICC LINE PLACEMENT OVER 5 YEARS OF AGE DATE: 06/05/2024 2:05 PM HISTORY:sepsis Unsuccessful attempt at bedside PICC line placement by in-house vascular team. TECHNIQUE: The risks, benefits, and alternatives were discussed and informed consent was obtained. Prior to beginn ing the procedure, universal protocol was performed to confirm the patient's identity and the planned procedure. Maximum sterile barriers including cap, mask, hand hygiene, sterile gloves, sterile gown, large sterile drape, sterile gel, sterile ultrasound probe cover, and 2% chlorhexidine for cutaneous antisepsis were used. The skin over the right basilic vein was sterilely prepped, draped, and infiltrated with lidocaine. Prior to the procedure, this target vessel was evaluated by ultrasound and an image of the patent vessel demonstrating vessel patency was recorded in the patient's electronic medical record. This vessel was then accessed using real-time ultrasound guidance. A guidewire waspassed centrally using fluoroscopic guidance. The intravascular length from the access site to the right atrium was assessed. After dilating the tract, a 45 cm, 5-[place] dual-lumen PICC was inserted through the peel-away sheath. The peel-away sheath was then removed. The catheter was flushed and sec ured in place. A sterile dressing was applied. The final fluoroscopic image demonstrates the catheter with its tip at the cavoatrial junction. No complications were identified. The catheter is ready for immediate use. When treatment is completed, this catheter can be removed at the bedside according to standard hospital protocol. Impression: Successful PICC placement using ultrasound guidance. Electronically signed by: Blaine Nash M.D. XR Chest 1 View Result Date: 06/05/2024 Narrative: EXAMINATION: XR CHEST 1 VIEW HISTORY: The patient is a 63-year-old female who has had anattempted PICC line placement. Comparison made with the previous study dated 05/29/2024. TECHNIQUE:AP portable view of the chest. FINDINGS: Cardiomegaly with aortic atherosclerosis. No failure. No active infiltrate. Impression: Cardiomegaly. Electronically signed by: Conrad Davila M.D. ECG 12 lead Result Date: 06/02/2024 Narrative: Vent Rate: 86 bpm RR Interval: 697 msec OH Interval: 0 msec QRS Duration: 157 msec QT Interval: 470 msec QTC Interval: 513 msec P-R-T [place]: 0 - 38 - 88 degrees IMPRESSION: ATRIAL FIBRILLATION WITH ABERRANT CONDUCTION OR VENTRICULAR PREMATURE COMPLEXES LEFT BUNDLE BRANCH BLOCK [120+ ms QRS DURATION, 80+ ms Q/S IN V1/V2, 85+ ms R IN I/aVL/V5/V6] ABNORMAL ECG Compared to prior EKG, ventricular pacing is no longer present Electronically Signed By: Antonio Carlos MD ECG 12 lead Result Date: 06/02/2024 Narrative: Vent Rate: 76 bpm RR Interval: 782 msec OH Interval: 0 msec QRS Duration: 158 msec QT Interval: 494 msec QTC Interval: 525 msec P-R-T [place]: 0 - 116 - 120 degrees IMPRESSION: ATRIAL FIBRILLATION WITH demand ventricular pacemaker MARKED RIGHT AXIS DEVIATION [QRS AXIS > 100] INTRAVENTRICULAR CONDUCTION DELAY [130+ ms QRS DURATION] ABNORMAL ECG Compared to prior EKG, demand ventricular pacing is new Electronically Signed By: Antonio Carlos MD CT Abdomen Pelvis W Contrast Result Date: 06/01/2024 Narrative: EXAMINATION: CT ABDOMEN PELVIS W CONTRAST DATE: 06/01/2024 1:05 PM HISTORY: Sepsis. COMPARISON: 02/28/2017. TECHNIQUE: Transaxial computed tomographic images of the abdomen and pelvis were obtained after the administration of 119 mL of Optiray 350 intravenously. Multiplanar coronal and sagittal images were reformatted. FINDINGS: Similar scarring in the left lung base unchanged since 2017. There is cardiomegaly and mosaic attenuation in the lung bases suggestive of pulmonary edema. There is a small hiatal hernia. Cholecystectomy. Diffuse hepatic steatosis. The spleen, pancreas, and adrenal glands are unremarkable. Kidneys are unremarkable. No hydroureteronephrosis. Unopacified bladder is unremarkable. Uterus and adnexal structures are unremarkable. No free fluid in the pelvis. There is diverticulosis. No evidence of diverticulitis. The small bowel is unremarkable. Mild atherosclerotic calcifications in the aorta and branch vessels. Subcutaneous tissues are unremarkable. No pathologic by size criteria lymphadenopathy. Mild bilateral sacroiliac joint arthrosis. No acute fracture. No pathologic by size criteria lymphadenopathy. Impression: 1. Mosaic attenuation in the lung bases suggestive of interstitial pulmonary edema. 2. Diffuse hepatic steatosis. 3. Small hiatal hernia. 4. Trace left pleural effusion. 5. Additional chronic or incidental findings as above. Electronically signed by: Azeem Robins II, D.O. ECG 12 lead Result Date: 06/01/2024 Narrative: Vent Rate: 102 bpm RR Interval: 584 msec OH Interval: 0 msec QRS Duration: 149 msec QT Interval: 387 msec QTC Interval: 446 msec P-R-T [place]: 0 - 115 - 66 degrees IMPRESSION: ATRIAL FIBRILLATION WITH RAPID VENTRICULAR RESPONSE WITH ABERRANT CONDUCTION OR VENTRICULAR PREMATURE COMPLEXES INDETERMINATE AXIS INTRAVENTRICULAR CONDUCTION DELAY [130+ ms QRS DURATION] ABNORMAL ECG NO CHANGE FROM PREVIOUS TRACING NOTED Electronically Signed By: Antonio Carlos MD ECG 12 lead Result Date: 06/01/2024 Narrative: Vent Rate: 83 bpm RR Interval: 716 msec OH Interval: 0 msec QRS Duration: 154 msec QT Interval: 409 msec QTC Interval: 449 msec P-R-T [place]: 0 - 123 - 189 degrees IMPRESSION: ATRIAL FIBRILLATION INTRAVENTRICULAR CONDUCTION DELAY LATERAL MYOCARDIAL INFARCTION , OF INDETERMINATE AGE Electronically Signed By: Cristino Kingsley MD, [facility] ECG 12 lead Result Date: 05/31/2024 Narrative: Vent Rate: 74 bpm RR Interval: 810 msec OH Interval: 0 msec QRS Duration: 151 msec QT Interval: 449 msec QTC Interval: 476 msec P-R-T [place]: 0 - 102 - 146 degrees IMPRESSION: VENTRICULAR PACED RHYTHM Electronically Signed By: Cristino Kingsley MD, [facility] ECG 12 lead Result Date: 05/31/2024 Narrative: Vent Rate: 76 bpm RR Interval: 785 msec OH Interval: 0 msec QRS Duration: 150 msec QT Interval: 471 msec QTC Interval: 501 msec P-R-T [place]: 0 - 80 - 97 degrees IMPRESSION: ATRIAL FIBRILLATION WITH ABERRANT CONDUCTION OR VENTRICULAR PREMATURE COMPLEXES INTRAVENTRICULAR CONDUCTION DELAY [130+ ms QRS DURATION] ABNORMAL ECG Electronically Signed By: Dr. Shiloh Muhammad [facility] ECG 12 lead Result Date: 05/30/2024 Narrative: Vent Rate: 109 bpm RR Interval: 548 msec OH Interval: 0 msec QRS Duration: 149 msec QT Interval: 398 msec QTC Interval: 462 msec P-R-T [place]: 0 - 96 - 89 degrees IMPRESSION: ATRIAL FIBRILLATION WITH RAPID VENTRICULAR RESPONSE BORDERLINE RIGHT AXIS DEVIATION [QRS AXIS > 90] INTRAVENTRICULAR CONDUCTION DELAY [130+ ms QRS DURATION] ABNORMAL ECG Unchanged compared to an EKG done earlier on May 30, 2024 Electronically Signed By: Dr. Shiloh Muhammad [facility] CT Chest WO Contrast Result Date: 05/30/2024 Narrative: EXAMINATION: Computed tomography of the chest without intravenous contrast HISTORY: Right lower lobe pulmonary artery for and body TECHNIQUE: Transaxial computed tomographic images of the chest were obtained without intravenous contrast according to the standard protocol. COMPARISON: 05/30/[address] angiography. FINDINGS: Bilateral small pleural effusions and atelectasis. There is trace pulmonary edema. Heart is enlarged. Small volume pericardial effusion. Pacemaker defibrillator leads terminate in the right atrium and right ventricle. There left hilar calcified granulomas. There is a curvilinear density originating in the right lower lobe pulmonary artery and extending distally into a lateral basilar subsegmental branch vessel. Visualized portions of the upper abdomen demonstrate changes of cholecystectomy. No suspicious osseous lesions. Impression: 1. Redemonstrated curvilinear radiopaque density extending from the proximal right lower lobe pulmonary artery into a subsegmental lateral basilar branch favors a catheter or wire fragment. 2. Findings most suggestive of heart failure with cardiomegaly, small volume pericardial effusion, and small bilateral pleural effusions and mild pulmonary edema. Electronically signed by: Abilio Post M.D. Transthoracic Echo (TTE) Complete W Doppler/CF Result Date: 05/30/2024 Narrative: [place] [address] Echocardiogram Report Patient Name: LEI RODRIGUEZ V : 1960 Study Date: 05/30/2024 7:47:08 AM Gender: F Tech: GUILHERME Location: [id number] Ref Provider: TY MCFARLAND Height(Cm): 165 BSA: 2.43 Weight(Kg): 128.7 Heart Rate: 94 BP: 135/84 Quality:Good Order Provider: TY MCFARLAND PROCEDURES: Echocardiographic Report: Transthoracic echocardiogram with complete 2D, M-Mode, color Doppler examination and contrast. INDICATIONS: Endocarditis. Measurements: 2D/M Mode Doppler Measurement Value Normal Range Measurement Value Normal Range EF Teich 2D 21.6 [ 54.0 - 74.0 ] percent MARIANA Vmax 3.09 cm2 EF Mod 4C 33.1 percent AV Mean PG 3 mmHg [id number] 5.71 [ 3.80 - 5.20 ] cm [...] ] m/s LA Volume Index 22.99 [ 16.00- 34.00 ] cc/m2 MV A Peak Chadd 0.31 [ 1.00 - 1.20 ] m/s ACS MM 2.14 cm MV Mean PG 2 mmHg MV PHT 54 [20 - 100 ] msec MVA PHT 4.11 cm2 MV Decel Time 169 [ 104 - 258 ] msec PV Peak Chadd 1.14 [ 0.40 - 0.80 ] m/s TR Peak Chadd 2.94 [ 1.00 - 2.80 ] m/s TR Peak PG 35 mmHg RVSP 38.00 [ 10.00 - 36.00 ] mmHg E`0.05 m/s E/E` 19.29 Measurement Value Normal Range [...] peak RVSP is 42 mmHg. Mild to mod erate tricuspid regurgitation. Pericardium: Trivial pericardial effusion. Aorta: Mild aortic root calcification. IVC: Dilated IVC without respiratory collapse consistent with elevated right atrial pressure (>15 mmHg). Pulmonary Artery: Mild enlargement of the pulmonary artery. CONCLUSIONS: Technically difficult study with limited views. Mild enlargement of left ventricle cavity. Left ventriclenot well visualized. Optison contrast agent used to [...] MELISSA 2024-05-30 09:18:05 CDT CC: CC: CC: XR Chest 1 View Result Date: 05/30/2024 Narrative: EXAMINATION: XR CHEST 1 VIEW History: Shortness of breath Impression: Single view chest exam similar for interpretation with comparison to prior from 03/07/2017. Correlation made with CT from the same day There are diffuse interstitial and airspace opacitiescompatible with moderate pulmonary edema. Likely small effusions. Heart is enlarged. There is a curvilinear density projecting over the right lower lung which corresponds to a catheter or wire in theright lower lobe pulmonary arteries when correlated with the CT examination. This finding is not present on the prior 2016 examination. The presence of this finding was discussed by Dr. Abernathy with Dr. Hollis and documented by Dr. Hollis in the medical record on 05/30/2024 at 457. Electronically signed by: Abilio Post M.D. ECG 12 lead Result Date: 05/30/2024 Narrative: Vent Rate: 86 bpm RR Interval: 697 msec OH Interval: 0 msec QRS Duration: 145 msec QT Interval: 438 msec QTC Interval: 481 msec P-R-T [place]: 0 - 101 - 95 degrees IMPRESSION: ATRIAL FIBRILLATION RIGHT AXIS DEVIATION [QRS AXIS > 100] INTRAVENTRICULAR CONDUCTION DELAY [130+ ms QRS DURATION] ABNORMAL ECG Unchanged compared to 05/29/2021 Electronically Signed By: Dr. Shiloh Muhammad [facility] CT Chest PE (CTA) W Contrast Result Date: 05/30/2024 Narrative: EXAMINATION: CT CHEST PE (CTA) W CONTRAST HISTORY: Chest pain ORDER DATE: 05/30/2024 3:20AM TECHNIQUE: CT chest images were acquired using a chest angiographic protocol with 3-D imaging optimized for PE is obtained [id number] mL of Optiray 350 IV. 2D Coronal and sagittal reformats were obtained. 3-D rendering (not supervised by radiologist) MIP and/or 3-D reconstructed images were created by the technologist. FINDINGS: Dual lead pacer device implanted in the left chest wall with leads in the right atrium and right ventricle. Pulmonary arteries: Dilated main pulmonary artery measuring 4.9 cm. Some of the segmental branches are not well assessed for exclusion of subtle emboli due to excessive motion. Otherwise centrally no pulmonary artery emboli. A dislodged catheter is visualized in the distal right pulmonary artery extending into the lobar and segmental right lower lobe pulmonary artery branch, image [id number]/coronal series 9. Aorta: Unremarkable. No aortic aneurysm. No aortic dissection. Lungs: Diffuse multilobar septal thickening, peribronchial thickening and increasedground-glass alveolar airspace opacity of the lung parenchyma representing findings of pulmonary interstitial edema. Pleural spaces: Mild left and trace to mild right pleural effusions. Heart: Four-chamber enlarged heart. Reflux of contrast within the hepatic veins and IVC may suggest right heart failure. Trace to mild pericardial effusion present. Lymph nodes: Multiple calcified mediastinal and hilar lymph nodes which suggest prior exposure to granulomatous disease. No lymphadenopathy. Diaphragm: There is a small hiatal hernia. Liver: Coarsened nodular hepatic parenchyma may suggest underlying chronic hepatocellular disease. Liver is prominent in size measuring 17.5 cm. Gallbladder and biliary ducts: Cholecystectomy. Bones/joints: No acute fracture. Soft tissues: Unremarkable. Impression: 1. Motion degraded evaluation of the pulmonary arteries. Some of the segmental branchesare not well assessed for exclusion of subtle emboli. Otherwise centrally no pulmonary artery emboli. 2. Pulmonary arterial hypertension and dislodged the catheter visualized in the distal right pulmonary artery and right lower lobe lobar and segmental pulmonary artery branch. 3. CHF, pulmonary edema and small bilateral pleural effusions. 4. Possible congestive cirrhosis. Correlate with LFTs. 5. Additional findings as described above. Stat report by [facility] . Electronically signed by: Andrea Abernathy M.D. CT Cervical Spine WO Contrast Result Date: 05/30/2024 Narrative: EXAMINATION: CT CERVICAL SPINE WO CONTRAST HISTORY: Neck pain ORDER DATE: 05/29/2024 10:55 PM TECHNIQUE: Multiple helical axial images of the cervical spine were obtained without the administration of contrast. Coronal and sagittal reformatted images were included. FINDINGS: Bones: No acute fracture. Chronic mild C6 loss of vertebral body height present. Normal alignment. Mild right C3-C4 facet arthrosis. C3-C4 disc narrowing and partially calcified bulging disc contributing to [id number] central spinal stenosis. Disc osteophyte complex also contributing to [id number] central spinal stenosis at C4-C5 level. No significant disc bulge or herniation. No severe spinal canal stenosis. Uncovertebral joint hypertrophy contributing to multilevel bilateral neural foraminal stenosis. Lungs: Lung apices are normal. Soft tissues: Unremarkable. Impression: No acute cervical spine injury. Stat report by [facility] Stat report by [facility] Electronically signed by: Andrea Abernathy M.D. CT Head WO Contrast Result Date: 05/30/2024 Narrative: EXAMINATION: CT head without contrast HISTORY: Headache, new or worsening (Age >= 50y) TECHNIQUE: Noncontrast CT of the brain was performed with images acquired from skull base to vertex. COMPARISON: None available. FINDINGS: Brain: Global volume loss and cortical dilatation present. No hemorrhage. Mild chronic microvascular ischemic changes of the periventricular white matter. No mass effect. No edema. Cerebral ventricles: No ventriculomegaly. Paranasal sinuses: Visualized sinuses are unremarkable. No fluid levels. Mastoid air cells: Visualized mastoid air cells are well aerated. Bones: Unremarkable. No acute fracture. Soft tissues: Unremarkable. Impression: No acute intracranial findings. Stat report by [facility] Electronically signed by: Andrea Abernathy M.D. ECG 12 lead Result Date: 05/30/2024 Narrative: Vent Rate: 93 bpm RR Interval: 645 msec OH Interval: 0 msec QRS Duration: 97 msec QT Interval: 197 msec QTC Interval: 247 msec P-R-T [place]: 0 - 118 - 0 degrees IMPRESSION: ATRIAL FIBRILLATION WITH ABERRANT CONDUCTION OR VENTRICULAR PREMATURE COMPLEXES LOW QRS VOLTAGE [QRS DEFLECTION < 0.5/1.0 mV IN LIMB/CHEST LEADS] SEPTAL MYOCARDIAL INFARCTION , PROBABLY OLD [40+ ms Q WAVE IN V1/V2]Nonspecific IVCD LATERAL MYOCARDIAL INFARCTION , OF INDETERMINATE AGE [40+ ms Q WAVE AND/OR ST/T ABNORMALITY IN I/aVL/V5/V6] ABNORMAL ECG Electronically Signed By: Antonio Carlos MD ASSESSMENT/PLAN Controlled type 2 diabetes mellitus with chronic kidney disease, with long-term current use of insulin (HCC) Hypothyroidism Hypotension due to drugs Chronic diastolic congestive heart failure (CMS/HCC) (HCC) Endocarditis Urinary frequency Gastroesophageal reflux disease without esophagitis Paroxysmal atrial fibrillation (CMS/HCC) (HCC) Major depressive disorder CKD (chronic kidney disease) CKD ? Hypokalemia/hypomag. Recent endocarditis. Recurrent ICD firing. A fib. DM/HTN. Hx of CHF. Hypothyroidism. PLAN Renal fn is stable, ckd/gerald ocasio not indicated. Hold lasix, keep K over 4, Mg over 2. Cards ocasio, ICD interrogation, Hold Tikosyn/BB. Daily RFP. Will d/w cardiology Repeat CHANCE. 06/12, d/w cards, monitor k, mg and cr, recs as above, monitor microscopic hematuria, start mgo and kcl. 06/13, K and mg acceptable, rpt ua, continue K and mg at current dose. 06/14, k and mg stable, stable renal fn/lytes, continue daily RFP and mag. 06/15, same management, no changes. -06/16, k, mg stable, no reported cardiac rhythm issues, will follow. -06/17, BP low, k, mg, lytes stable, iv abx. -06/18, egfr 79, k, mg stable, dc all bp meds. -06/19, k ang mg dropping, bp low, on entresto and bb, will d/w cardiology, restart k and mg. I can be reached at [phone] with any concerns. Thank you Mell Curran MD for the consult. Seth Flores MD [employer] [phone] * Apurva Thorpe, BRAY - 06/19/2024 11:58 AM CDT Occupational Therapy NOTE / SESSION TYPE: DAILY PROGRESS / TREATMENT Patient's Name: Lei Rodriguez Age / Sex: 63 y.o. / female Room: [place] [address] : 1960 Date of service: 06/19/24 TIME IN: 1158 TIME OUT: 1222 Patient Active Problem List Diagnosis Endocarditis SOB (shortness of breath) Acute on chronic systolic congestive heart failure (CMS/HCC) ([facility]) Neck pain Hyponatremia Chronic a-fib ([facility]/HCC) ([facility]) Controlled type 2 diabetes mellitus with chronic kidney disease, with long-term current use of insulin (HCC) Hypothyroidism JOSE (obstructive sleep apnea) Diabetes mellitus with hyperglycemia ([facility]/HCC) ([facility]) Traumatic hematoma of right upper arm Hypotension due to drugs Ventricular tachycardia ([facility]) Chronic diastolic congestive heart failure ([facility]/HCC) ([facility]) Endocarditis Urinary frequency Gastroesophageal reflux disease without esophagitis Paroxysmal atrial fibrillation ([facility]/HCC) ([facility]) Major depressive disorder CKD (chronic kidney disease) Past Medical History: Diagnosis Date A-fib ([facility]/HCC) ([facility]) CHF (congestive heart failure) ([facility]/HCC) ([facility]) Diabetes mellitus (HCC) GERD (gastroesophageal reflux disease) Hypertension Intellectual disability OAB (overactive bladder) Sleep apnea Thyroid disease Past Surgical History: Procedure Laterality Date CARDIAC DEFIBRILLATOR PLACEMENT CHOLECYSTECTOMY INSERT / REPLACE / REMOVE PACEMAKER IR PICC LINE PLACEMENT > 5 YEARS N/A 06/05/2024 OTHER SURGICAL HISTORY 05/31/2024 CHANCE/CARDIOVERSION Precautions (including weight-bearing): Fall risk and Bed / chair alarm Subjective: Pt says no, aint gonna happen when asked to participate in therapy Therapy Pain: Pre-therapy pain level: does not rate /10 Pain location: neck Pain Intervention(s): Pain medication administered prior to session Post-therapy pain level: does not rate /10 Pain scale reference: 0-10 SCALE Objective: Appearance: Presentation upon OT arrival: Patient Sitting at edge of bed Presentation upon OT departure: Patient Sitting at edge of bed Bed / Chair alarm in place and activated upon OT departure: No, sitter in room Call light within arms reach of patient at end of session: Yes Completed patient handoff and notified SUPERVISOR [employer] / RN, name: cora, of patient's location and functional status upon completion of session Cognitive / Perceptual: intact Mobility / Transfers: Bed Mobility: pt with good static sitting balance while sitting EOB. Transfer(s): sit to/from stand at EOB SBA. Pt with functional ambulation around room CGA with use of 3 wheeled rolator. TOILET TRANSFER LOCATION: STANDARD TOILET OVERALL ASSIST LEVEL: Supervision assistance / verbal cue(s) DEVICE: GRAB BARS ADDITIONAL DOCUMENTATION: pt with SPV for safety during sit to/from stand Living Skills / Other Activities: UE THERAPEUTIC EXERCISES: EXERCISE TYPE: B UE AROM EXERCISE(S) COMPLETED WITH NUMBER OF REPETITIONS: SHOULDER FLEXION 15 , SHOULDER EXTENSION 15 , SHOULDER HORIZONTAL ADDUCTION 15, SHOULDER HORIZONTAL ABDUCTION 15, CHEST PRESS 15, ELBOW FLEXION 15, ELBOW EXTENSION 15 , WRIST FLEXION 15, WRIST EXTENSION 15, FOREARM SUPINATION 15, and FOREARM PRONATION 15 NUMBER OF SETS: 1 ASSIST LEVEL: min verbal cues LOCATION OF COMPLETION: seated EOB TOLERANCE: pt tolerated well without complaints of pain. Pt given rest breaks between sets. Grooming: Patient completed grooming of washing hands and combing hair while Standing at sink ~4 minutes withoverall Supervision assistance. Patient required assistance for safety UE dressing: Patient completed upper body dressing of Hospital gown while Sitting on EOB with overall Supervision assistance. Patient required assistance for verbal cue(s). Caregiver Present: No Education & Training Provided: Role of OT, OT plan of care, and ADL training Assessment: Activity tolerance / response to OT session: GOOD PARTICIPATION, REQUIRED max ENCOURAGEMENT, and POOR MOTIVATION Progress towards goals: Please refer to care plan from this date for progress towards individual goals Plan: Therapy Plan: Rehab Potential (Prognosis): fair OT Recommendations This Date: OT RECOMMENDATIONS: OT Recommendation: [facility] Facility Flow sheet updated and OT Consultation in Regards to Change in Discharge Recommendations: YES /NO: No Additional recommendation comments: Recommend SNF due to: Risk of injury at home, Unable to safely care for self in the home, Skilled therapy needed to address care for self in the home, Skilled therapy needed to address functional deficits, Skilled therapy needed for patient to return to prior level of independence Frequency of therapy:OT Frequency during current admission: 3-5x/wk If this is the last note, consider this the discharge summary KATARINA Martinez 06/19/24 Cosigned by Suzanne Ge, OT at 06/21/2024 8:14 AM CDT * Mell Curran MD - 06/19/2024 11:30 AM CDT DAILY PROGRESS NOTE C/C:Fall and passed out Interval History: No new events Consults: Ty Mcfarland MD Singh, Inderjit, MD SUBJECTIVE: Complaints: None ROS: Denies any pain or SOB OBJECTIVE: Vitals: Temp (24hrs), Av.6 ??C (97.8 ??F), Min:36.4 ??C (97.5 ??F), Max:36.8 ??C (98.2 ??F) Vitals: 06/19/24 0000 06/19/24 0414 06/19/24 0800 06/19/24 0805 BP: 104/56 91/61 100/72 BP Location: Right arm Right arm Right arm Patient Position: Lying Lying Sitting Pulse: 90 101 100 100 Resp: 18 18 18 Temp: 36.4 ??C (97.6 ??F) 36.5 ??C (97.7 ??F) 36.4 ??C (97.5 ??F) TempSrc: Oral Oral Oral SpO2: 96% 98% 97% Weight: Height: LDA: PICC Double Lumen 06/05/24 Non-tunneled Power #1 Red, #2 Purple, Right Basilic;Upper arm (Active) Placement Date/Time: 06/05/24 1505 Catheter Time Out Checklist Completed: Yes Hand Hygiene Performed: Yes Site Prep: Chlorhexidine Site Prep Agent has Completely Dried Before Insertion: Yes All 5 Sterile Barriers or Appropriate Barriers Used (Gl... Number of days: 7 I/O: No intake or output data in the 24 hours ending 06/19/24 1130 Physical Exam General: Up on bed, awake,alert,on RA, eating lunch ,NAD SHEENT:Skin warm,dry,no rashes. No icterus,no cyanosis,no pallor,EOMI. Neck:Supple Respi:Slightly diminished breath sounds tamica Cardio:RRR,no murmur GI:Abdomen obese,soft,bowel sounds +,non tender,not distended. Extre:No edema,no cyanosis,no pallor Neuro:Awake,alert,answering questions appropriately.Following commands Psych:No agitation Laboratory: Recent Results (from the past 24 hour(s)) POCT glucose Collection Time: 06/18/24 5:03 PM Result Value Ref Range Glucose, POC 139 70 - 199 mg/dL POCT glucose Collection Time: 06/18/24 8:27 PM Result Value Ref Range Glucose, POC 190 70 - 199 mg/dL Magnesium Collection Time: 06/19/24 4:29 AM Result Value Ref Range Magnesium 1.8 1.4 - 2.5 mg/dL Renal function panel Collection Time: 06/19/24 4:29 AM Result Value Ref Range Sodium 138 135 - 145 mmol/L Potassium, pl 3.9 3.3 - 4.9 mmol/L Chloride 101 97 - 110 mmol/L CO2 25 22 - 32 mmol/L Anion gap 12 2 - 15 mmol/L BUN 17 6 - 25 mg/dL Creatinine 0.70 0.60 - 1.10 mg/dL Glucose 132 70 - 199 mg/dL Calcium 9.2 8.5 - 10.3 mg/dL Phosphorus, pl 4.0 2.3 - 4.5 mg/dL Albumin 3.2 (L) 3.5 - 5.0 g/dL eGFR Collection Time: 06/19/24 4:29 AM Result Value Ref Range eGFR >90 >=60 mL/min/1.73 m2 POCT glucose Collection Time: 06/19/24 6:29 AM Result Value Ref Range Glucose, POC 154 70 - 199 mg/dL POCT glucose Collection Time: 06/19/24 11:13 AM Result Value Ref Range Glucose, POC 165 70 - 199 mg/dL Radiology: Scheduled Medications: ceFAZolin, 2 g, intravenous, Q8H GALINA cholecalciferol, 5,000 Units, oral, Daily dapagliflozin propanediol, 10 mg, oral, Daily docusate sodium, 100 mg, oral, BID escitalopram, 5 mg, oral, Daily ferrous sulfate, 65 mg of elemental iron, oral, Daily with breakfast insulin glargine, 0.15 Units/kg, subcutaneous, Nightly insulin lispro, 0-4 Units, subcutaneous, Nightly insulin lispro, 0-5 Units, subcutaneous, TID with meals insulin lispro, 0.05 Units/kg, subcutaneous, TID with meals levothyroxine, 75 mcg, oral, QAM magnesium oxide, 400 mg, oral, Daily multivit tdohsnoq-knuh-GO-calcium, 1 tablet, oral, Daily nortriptyline, 10 mg, oral, Daily pantoprazole DR, 40 mg, oral, Daily potassium chloride ER, 40 mEq, oral, Daily rivaroxaban, 20 mg, oral, Daily with dinner sacubitriL-valsartan, 1 tablet, oral, BID spironolactone, 12.5 mg, oral, Daily Current Facility-Administered Medications: acetaminophen (TYLENOL) tablet 650 mg, 650 mg, oral, Q4H PRN, Mell Curran MD, 650 mg at 06/16/24 1155 albuterol HFA (PROVENTIL HFA,VENTOLIN HFA,PROAIR HFA) 90 mcg/actuation inhaler 2 puff, 2 puff, inhalation, Q6H PRN (RT), Dilan Palmer MD ceFAZolin (ANCEF) 2,000 mg/100 mL in dextrose (premix) 2 g, 2 g, intravenous, Q8H GALINA, Rachel Barnes, PAN DEVULCANIZER, Last Rate: 200 mL/hr at 06/19/24 0815, 2 g at 06/19/24 0815 cholecalciferol (VITAMIN D-3) tablet 5,000 Units, 5,000 Units, oral, Daily, Rachel Barnes NP, 5,000 Units at 06/19/24 0815 dapagliflozin propanediol (FARXIGA) tablet 10 mg, 10 mg, oral, Daily, Raj Huizar MD, 10 mg at 06/19/24 0815 dextrose oral liquid liquid 15 g, 15 g, oral, Q15 Min PRN OR dextrose (D10W) 10% bolus 250 mL, 250 mL, intravenous, Q15 Min PRN, Rachel Barnes NP docusate sodium (COLACE) capsule 100 mg, 100 mg, oral, BID, Rachel Barnes NP, 100 mg at 06/19/24 0815 escitalopram (LEXAPRO) tablet 5 mg, 5 mg, oral, Daily, Coleen Samuels MD, 5 mg at 06/19/24 0816 ferrous sulfate delayed release tablet 65 mg of elemental iron, 65 mg of elemental iron, oral, Daily with breakfast, Rachel Barnes NP, 65 mg of elemental iron at 06/19/24 0815 fluticasone propionate (FLONASE) 50 mcg/actuation nasal spray 1 spray, 1 spray, each nostril, DailyPRN, Rachel Barnes NP glucagon injection 1 mg, 1 mg, intramuscular, Q30 Min PRN, Rachel Barnes NP insulin glargine (LANTUS, SEMGLEE) 100 unit/mL injection 17 Units, 0.15 Units/kg, subcutaneous, Nightly, Rachel Barnes NP, 17 Units at 06/18/24 2028 insulin lispro (HumaLOG, ADMELOG) 100 unit/mL injection 0-4 Units, 0-4 Units, subcutaneous, Nightly, Rachel Barnes NP, 1 Units at 06/17/24 2305 insulin lispro (HumaLOG, ADMELOG) 100 unit/mL injection 0-5 Units, 0-5 Units, subcutaneous, TID with meals, Rachel Barnes NP, 1 Units at 06/19/24 1107 insulin lispro (HumaLOG, ADMELOG) 100 unit/mL injection 6 Units, 0.05 Units/kg, subcutaneous, TID with meals, Racehl Barnes NP, 6 Units at 06/19/24 0816 levothyroxine (SYNTHROID) tablet 75 mcg, 75 mcg, oral, QAM, Rachel Barnes NP, 75 mcg at 06/19/24 0535 magnesium oxide (MAG-OX) tablet 400 mg, 400 mg, oral, Daily, Seth Flores MD, 400 mg at 06/19/24 0815 multivit wecjcvmq-sgug-SN-calcium (THERA-M) tablet 1 tablet, 1 tablet, oral, Daily, Rachel Barnes NP, 1 tablet at 06/19/24 0815 nortriptyline (PAMELOR) capsule 10 mg, 10 mg, oral, Daily, Rachel Barnes, PAN DEVULCANIZER, 10 mg at 06/19/24 0815 OLANZapine (ZyPREXA) 5 mg in sterile water 1 mL (5 mg/mL) syringe, 5 mg, intramuscular, Q6H PRN, Mell Curran MD pantoprazole DR (PROTONIX) extended release tablet 40 mg, 40 mg, oral, Daily, Rachel Barnes NP, 40 mg at 06/19/24 0816 potassium chloride ER (KLOR-CON) extended release tablet 40 mEq, 40 mEq, oral, Daily, Coleen Samuels MD, 40 mEq at 06/19/24 0815 rivaroxaban (XARELTO) tablet 20 mg, 20 mg, oral, Daily with dinner, Rahcel Barnes NP, 20 mgat 06/18/24 1734 sacubitriL-valsartan (ENTRESTO) 24-26 mg tablet 1 tablet, 1 tablet, oral, BID, Rachel Barnes NP, 1 tablet at 06/19/24 0815 spironolactone (ALDACTONE) split tablet 12.5 mg, 12.5 mg, oral, Daily, Raj Huizar MD, 12.5 mg at 06/19/24 0815 Continuous Medications: PRN Medications: acetaminophen albuterol HFA dextrose OR dextrose fluticasone propionate glucagon OLANZapine Hospital course: 63 y.o. Morbidly obese WF pt with a PMHx significant for A-fib, CHF, DM II, GERD, HTN, Intellectualdisability, OAB, Sleep apnea, thyroid disease and endocarditis Was brought to ED with chief complaint of fall and passed out ASSESSMENT/PLAN: All diagnoses were present on admission unless otherwise stated. Principal Problem: --Syncope due to Ventricular tachycardia- AICD interrogated at [facility] by Cass ArtroniAffymax, noted 5 discharges on the report. Troponins trended 0.018, 0.030 ( 0.000-0.034) Patient currently in Sinus rhythm on Telemetry. Cardiology has seen and has stopped several medications including Tikosyn. Decreased Lexapro to 5 mg a day Active problems: --DM II- Accu check ACHS cover with SSI, continue Lantus and basal meal time Humalog BS 130-160 --Chronic Reduced ejection fraction heart failure- cardiomegaly noted on chest x-ray, OSH BNP 1600 (19.9-100) no noted edema continue Lasix 40 mg daily, Coreg 25 mg BID and Entresto 24/26 BID, last Echo 05/30/24 EF 30% diastolic dysfunction. --Recent H/O Endocarditis- Continue Ancef 2g every 8 hours for 3 more days --Hypothyroidism- Continue Levothyroxine 75 mcg daily --Urinary frequency-Continue Mirabeqron 25 mg daily --Hypotension- continue midodrine 5 mg TID. Now resolved --GERD-Continue Protonix 40 mg daily --A-fib,S/P PPM- Cardizem has been discontinued . Cardiology is following Continue Xarelto 20 mg daily with dinner --CKD stage II- Stable. consulted Nephrology --Depression- Decreased Lexapro dose to 5 mg due to VTach Continue Nortriptyline 10 mg daily --Agitation 06/12: On Precedex drip. H/O Intellectual disability, developmental delay+. Consulted and D/W Psych.Recommended prn IM Zyprexa 5 mg q 6 hours and wean off Precedex Family did not agree for Zyprexa on 06/13 06/14 Sisters agreed for prn Zyprexa IM 06/15 Weaned off Precedex drip and started on prn IM Zyprexa 06/14 UA neg 06/14 CT Head neg Resolved --Headache following syncope with scalp lac requiring suture : 06/14 CT Head neg DVT Prophylaxis with Xarelto Code status: Full code D/W RN D/W SW Medical Decision Making complexity: Low Expected date of discharge: ? Barriers to discharge:Insurance authorization for new SNF and completion of IV Ancef Discharge disposition: nursing home facility Mell Curran MD 06/19/2024 11:30 AM [facility] [place] * Deric Wagoner NP - 06/19/2024 10:59 AM CDT Infectious Disease Progress Note Consulting Physician: Eben Pettit MD. Reason for consult: Ongoing IV antibiotic therapy new admission for syncope Interval history/review of systems Afebrile Pt is on room air. C/o neck pain Sitter at bedside Appetite is good Anti-infectives (From admission, onward) Start Dose/Rate Route Frequency Ordered Stop 06/11/24 0100 ceFAZolin (ANCEF) 2,000 mg/100 mL in dextrose (premix) 2 g 2 g 200 mL/hr over 30 Minutes intravenous Every 8 hours scheduled 06/11/24 0036 06/21/24 6829 Objective: Vitals: 24hr Min/Max: Temp Min: 36.4 ??C (97.5 ??F) Max: 36.8 ??C (98.2 ??F) Pulse Min: 87 Max: 103 BP Min: 91/61 Max: 144/84 Resp Min: 18 Max: 18 SpO2 Min: 96 % Max: 98 % Most Recent : Vitals: 06/19/24 0000 06/19/24 0414 06/19/24 0800 06/19/24 0805 BP: 104/56 91/61 100/72 BP Location: Right arm Right arm Right arm Patient Position: Lying Lying Sitting Pulse: 90 101 100 100 Resp: 18 18 18 Temp: 36.4 ??C (97.6 ??F) 36.5 ??C (97.7 ??F) 36.4 ??C (97.5 ??F) TempSrc: Oral Oral Oral SpO2: 96% 98% 97% Weight: Height: Physical Exam: General appearance: alert, cooperative, no distress HEENT: (-)icterus, Oropharnyx is normal, forehead with stitches, site is clean Neck: No palpable LN Lungs: breath sounds normal and symmetric; minimal respiratory effort, no r/w/c Heart: normal S1 and S2, no m/r/g Abdomen: soft without mass, non-tender, +bowel sounds, no HSM Extremities/Skin: no gross deformities, FROM, no new rashes, no ulcerations Vascular: no Edema, pulses present bilaterally Neuro: No focal deficits Psych: Appropriate mood and affect Double-lumen PICC line right upper extremity placed 06/05, site is clean Labs Reviewed. Lab Results Component Value Date WBC 6.3 06/11/2024 WBC 6.0 06/11/2024 HGB 11.6 (L) 06/11/2024 HGB 11.5 (L) 06/11/2024 HCT 35.8 06/11/2024 HCT 35.8 06/11/2024 MCV 100.3 (H) 06/11/2024 MCV 99.4 (H) 06/11/2024 LABPLAT 286 06/11/2024 LABPLAT 314 06/11/2024 Recent Labs Lab Units 06/19/24 0429 06/17/24 2351 06/17/24 0015 BUN SERUM mg/dL 17 20 18 CREATININE mg/dL 0.70 0.84 0.70 Lab Results Component Value Date ALT 5 (L) 06/08/2024 AST 21 06/08/2024 ALKPHOS 217 (H) 06/08/2024 BILITOT 0.5 06/08/2024 Cultures Blood culture 06/13 no growth Urinalysis with no significant signs of infection on 06/12 06/14 UA neg Imaging CTA right upper extremity with no evidence of hematoma or drainable fluid collection. Patent arterial system. No evidence of DVT Assessment: MSSA bacteremia Called microlab during last admission, [facility] blood cultures 05/25 NG. blood cultures were positive for Staph aureus 05/21 and 05/22 Documented at outside hospital, unknown date so far will follow-up with [facility]. 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 Discussed case with Dr. Neli Hutchinson during last admission She underwent CHANCE, with no visible valve vegetation. Repeat blood cultures 05/30 no growth She has AICD in place. There was a clot in MAULIK, probably an appendage clot, hence synchronized Cardioversion was canceled on last admission. Electrophysiology/Cardiology team was following and there was plan for Bi V ICD after completing antibiotic course. Blood cultures were negative at outside hospital from 05/25, blood cultures negative at this facility from 05/30 CT abdomen and pelvis 06/01 With no significant infectious findings Nausea vomiting/syncope due to VF/fall Cardiology is following Dislodged catheter/lead.. PA Atrial fibrillation CHF GERD Hypertension Obstructive sleep apnea Thyroid disease Intellectual disability Plan: Continue on Ancef to complete therapy till 06/22, due to presence of AICD. blood cultures from 05/30 no growth. New blood cultures were ordered due to fever 06/13 . Afebrile now Urinalysis from 06/12 with no signs of infection IR guided PICC line placement on 06/05. Right upper extremity, Dopplers with no DVT, CTA with no hematoma/fluid collection. chest x-ray 06/14 no new infiltrate Urine 06/14 no signs of infection Follow-up on blood cultures from 06/13, tato Wagoner NP 06/19/2024 [facility] Infectious Diseases Office: [phone] Fax: [phone] Cosigned by Manuel Ludwig MD at 06/28/2024 10:16 PM CDT * Raj Huizar MD - 06/19/2024 9:40 AM CDT Daily Progress [facility] Cardiology Subjective: Denies any chest pain shortness of breath telemetry shows AFib OBJECTIVE: Past Medical History: Diagnosis Date A-fib (CMS/HCC) (HCC) CHF (congestive heart failure) (CMS/HCC) (HCC) Diabetes mellitus (HCC) GERD (gastroesophageal reflux disease) Hypertension Intellectual disability OAB (overactive bladder) Sleep apnea Thyroid disease No family history on file. Scheduled Medications Medication Dose Route Frequency ceFAZolin (ANCEF) 2,000 mg/100 mL in dextrose (premix) 2 g 2 g intravenous Q8H GALINA cholecalciferol (VITAMIN D-3) tablet 5,000 Units 5,000 Units oral Daily dapagliflozin propanediol (FARXIGA) tablet 10 mg 10 mg oral Daily docusate sodium (COLACE) capsule 100 mg 100 mg oral BID escitalopram (LEXAPRO) tablet 5 mg 5 mg oral Daily ferrous sulfate delayed release tablet 65 mg of elemental iron 65 mg of elemental iron oral Daily with breakfast insulin glargine (LANTUS, SEMGLEE) 100 unit/mL injection 17 Units 0.15 Units/kg subcutaneous Nightly insulin lispro (HumaLOG, ADMELOG) 100 unit/mL injection 0-4 Units 0-4 Units subcutaneous Nightly insulin lispro (HumaLOG, ADMELOG) 100 unit/mL injection 0-5 Units 0-5 Units subcutaneous TID with meals insulin lispro (HumaLOG, ADMELOG) 100 unit/mL injection 6 Units 0.05 Units/kg subcutaneous TID withmeals levothyroxine (SYNTHROID) tablet 75 mcg 75 mcg oral QAM magnesium oxide (MAG-OX) tablet 400 mg 400 mg oral Daily multivit emkwqgll-yqyh-YG-calcium (THERA-M) tablet 1 tablet 1 tablet oral Daily nortriptyline (PAMELOR) capsule 10 mg 10 mg oral Daily pantoprazole DR (PROTONIX) extended release tablet 40 mg 40 mg oral Daily potassium chloride ER (KLOR-CON) extended release tablet 40 mEq 40 mEq oral Daily rivaroxaban (XARELTO) tablet 20 mg 20 mg oral Daily with dinner sacubitriL-valsartan (ENTRESTO) 24-26 mg tablet 1 tablet 1 tablet oral BID spironolactone (ALDACTONE) split tablet 12.5 mg 12.5 mg oral Daily Exam: Gen: Comfortable, NAD for had sutures scar healing CVS: Irregular, S1, S2 present, no murmur GI: Soft Non tender Chest: Air entry reduced CTAB Psych: Appropriate mood and affect Neuro: Alert, oriented, No deficits. Recent Labs Lab Units 06/19/24 0629 06/19/24 0429 06/18/24 2027 06/18/24 1703 06/18/24 1130 06/18/24 0204 06/17/24 2351 06/17/24 0219 06/17/24 0015 06/16/24 0628 06/16/24 0241 06/15/24 0810 06/15/24 0609 SODIUM mmol/L -- 138 -- -- -- -- 136 -- 136 -- 138 -- 136 POTASSIUM PLASMA mmol/L -- 3.9 -- -- -- -- 4.5 -- 4.5 -- 4.1 -- 4.1 CHLORIDE mmol/L -- 101 -- -- -- -- 100 -- 101 -- 104 -- 103 CO2 mmol/L -- 25 -- -- -- -- 26 -- 26 -- 24 -- 26 ANIONGAP mmol/L -- 12 -- -- -- -- 10 -- 9 -- 10 -- 7 GLUCOSE mg/dL -- 132 -- -- -- -- 208* -- 215* -- 130 -- 137 POC GLUCOSE MONITOR mg/dL 154 -- 190 139 277* < > -- < > -- < > -- < > -- BUN SERUM mg/dL -- 17 -- -- -- -- 20 -- 18 -- 15 -- 16 CREATININE mg/dL -- 0.70 -- -- -- -- 0.84 -- 0.70 -- 0.70 -- 0.72 CALCIUM mg/dL -- 9.2 -- -- -- -- 9.1 -- 9.2 -- 9.0 -- 8.9 ALBUMIN g/dL -- 3.2* -- -- -- -- 3.3* -- 3.3* -- 3.2* -- 3.0* < > = values in this interval not displayed. No intake or output data in the 24 hours ending 06/19/24 0941 Vitals: 06/19/24 0000 06/19/24 0414 06/19/24 0800 06/19/24 0805 BP: 104/56 91/61 100/72 BP Location: Right arm Right arm Right arm Patient Position: Lying Lying Sitting Pulse: 90 101 100 100 Resp: 18 18 18 Temp: 36.4 ??C (97.6 ??F) 36.5 ??C (97.7 ??F) 36.4 ??C (97.5 ??F) TempSrc: Oral Oral Oral SpO2: 96% 98% 97% Weight: Height: ASSESSMENT/PLAN: Patient Active Problem List Diagnosis Endocarditis SOB (shortness of breath) Acute on chronic systolic congestive heart failure ([facility]) ([facility]) Neck pain Hyponatremia Chronic a-fib ([facility]) ([facility]) Controlled type 2 diabetes mellitus with chronic kidney disease, with long-term current use of insulin ([facility]) Hypothyroidism JOSE (obstructive sleep apnea) Diabetes mellitus with hyperglycemia ([facility]) ([facility]) Traumatic hematoma of right upper arm Hypotension due to drugs Ventricular tachycardia ([facility]) Chronic diastolic congestive heart failure ([facility]) ([facility]) Endocarditis Urinary frequency Gastroesophageal reflux disease without esophagitis Paroxysmal atrial fibrillation (CMS/HCC) (HCC) Major depressive disorder CKD (chronic kidney disease) V-fib leading to syncope and for head injury -5 episodes of VFib with appropriate ICD firing. - previous LHC that was negative for CAD. Given normal troponin no need for cardiac catheterizationcurrently. She is having no chest pain. She is okay to discharge from Cardiology standpoint. Persistent Atrial fibrillation. - CHANCE 05/31/24 that showed left atrial appendage thrombus therefore no CV - On xarelto for AC. - Tikosyn and calcium channel blockers been discontinued. Chronic systolic congestive heart failure. -Clinically compensated at this time. -EF 30% by echo last admit. Continue BB and Entresto. -diuretics on home. Added Farxiga and Aldactone Diabetes type 2 -as per attending Dislodged catheter in pulmonary artery noted on CT chest Raj Huizar MD, [facility], [facility], [facility] [phone] 06/19/2024 9:41 AM * Apurva Thorpe COTA - 06/18/2024 2:42 PM CDT Occupational Therapy NOTE / SESSION TYPE: DAILY PROGRESS / TREATMENT Patient's Name: Lei Rodriguez Age / Sex: 63 y.o. / female Room: [place] [address] : 1960 Date of service: 06/18/24 TIME IN: 1415 TIME OUT: 1440 Patient Active Problem List Diagnosis Endocarditis SOB (shortness of breath) Acute on chronic systolic congestive heart failure (CMS/HCC) ([facility]) Neck pain Hyponatremia Chronic a-fib (CMS/HCC) (HCC) Controlled type 2 diabetes mellitus with chronic kidney disease, with long-term current use of insulin (HCC) Hypothyroidism JOSE (obstructive sleep apnea) Diabetes mellitus with hyperglycemia (CMS/HCC) (HCC) Traumatic hematoma of right upper arm Hypotension due to drugs Ventricular tachycardia (HCC) Chronic diastolic congestive heart failure (CMS/HCC) ([facility]) Endocarditis Urinary frequency Gastroesophageal reflux disease without esophagitis Paroxysmal atrial fibrillation (CMS/HCC) (HCC) Major depressive disorder CKD (chronic kidney disease) Past Medical History: Diagnosis Date A-fib ([facility]) ([facility]) CHF (congestive heart failure) ([facility]) ([facility]) Diabetes mellitus (HCC) GERD (gastroesophageal reflux disease) Hypertension Intellectual disability OAB (overactive bladder) Sleep apnea Thyroid disease Past Surgical History: Procedure Laterality Date CARDIAC DEFIBRILLATOR PLACEMENT CHOLECYSTECTOMY INSERT / REPLACE / REMOVE PACEMAKER IR PICC LINE PLACEMENT > 5 YEARS N/A 06/05/2024 OTHER SURGICAL HISTORY 05/31/2024 CHANCE/CARDIOVERSION Precautions (including weight-bearing): Fall risk and Bed / chair alarm Subjective: Pt says no, I dont like walking Therapy Pain: Pre-therapy pain level: does not rate /10 Pain location: back Pain Intervention(s): No pain - Intervention N/A and Pain medication administered prior to session Post-therapy pain level: does not rate /10 Pain scale reference: 0-10 SCALE Objective: Appearance: Presentation upon OT arrival: Patient Sitting in bedside recliner, 1 on 1 sitter in room Presentation upon OT departure: Patient Sitting in bedside recliner Bed / Chair alarm in place and activated upon OT departure: Yes Call light within arms reach of patient at end of session: Yes Completed patient handoff and notified SUPERVISOR [employer]OND / RN, name: cora, of patient's location and functional status upon completion of session Cognitive / Perceptual: intact Mobility / Transfers: Transfer(s): sit to/from stand at recliner chair min A with use of B armrest. Pt with functional ambulation around room min A with use of 3 wheel rollator walker. TOILET TRANSFER LOCATION: STANDARD TOILET OVERALL ASSIST LEVEL: Partial / moderate assistance: Less than half (1% - 49%) DEVICE: GRAB BARS ADDITIONAL DOCUMENTATION: pt with min A during sit to stand at standard toilet. Living Skills / Other Activities: Toileting Patient completed toileting of hygiene management, clothing management pre- toileting, and clothing management post-toileting while sitting on standard toilet and standing at standard toilet with overall Minimal assistance. Patient required assistance for physical assistance for balance, verbal cue(s), and increased time to complete. Grooming: Patient completed grooming of washing face, brushing teeth, and washing hands while Standing at sink ~3 minutes with overall Supervision assistance. Patient required assistance for safety Footwear: Patient completed footwear of Sock(s) while Sitting in bedside chair / recliner with overall Supervision assistance. Patient required assistance for verbal cue(s) Caregiver Present: Yes: sister Education & Training Provided: Role of OT, OT plan of care, ADL training, and Functional transfer training Assessment: Activity tolerance / response to OT session: GOOD PARTICIPATION and REQUIRED max ENCOURAGEMENT Progress towards goals: Please refer to care plan from this date for progress towards individual goals Plan: Therapy Plan: Rehab Potential (Prognosis): fair OT Recommendations This Date: OT RECOMMENDATIONS: OT Recommendation: [facility] Facility Flow sheet updated and OT Consultation in Regards to Change in Discharge Recommendations: YES /NO: No Additional recommendation comments: Recommend SNF due to: Risk of injury at home, Unable to safely care for self in the home, Skilled therapy needed to address care for self in the home, Skilled therapy needed to address functional deficits, Skilled therapy needed for patient to return to prior level of independence Frequency of therapy:OT Frequency during current admission: 3-5x/wk If this is the last note, consider this the discharge summary KATARINA Martinez 06/18/24 Cosigned by Suzanne Ge OT at 06/18/2024 3:44 PM CDT * Cora Clarke PTA - 06/18/2024 2:18 PM CDT Physical Therapy Attempted treatment with pt adamantly refusing and yelling Ailvia Clarke PTA. 06/18/24 2:18 PM * Eben Pettit MD - 06/18/2024 12:42 PM CDT Infectious Disease Consult Consulting Physician: Eben Pettit MD. Reason for consult: Ongoing IV antibiotic therapy new admission for syncope Interval history/review of systems Sitting up in chair Not cooperative, upset Afebrile currently Sitter and sister in room Infectious Diseases is following for ongoing IV antibiotic Objective: Vitals: 24hr Min/Max: Temp Min: 36.4 ??C (97.6 ??F) Max: 36.8 ??C (98.3 ??F) Pulse Min: 82 Max: 106 BP Min: 102/52 Max: 134/83 Resp Min: 18 Max: 18 SpO2 Min: 96 % Max: 98 % Most Recent : Vitals: 06/18/24 0431 06/18/24 0755 06/18/24 0900 06/18/24 1152 BP: 102/52 126/72 129/74 BP Location: Left arm Right arm Left arm Patient Position: Lying Lying Sitting Pulse: 82 87 87 87 Resp: 18 18 Temp: 36.6 ??C (97.8 ??F) 36.7 ??C (98 ??F) 36.4 ??C (97.6 ??F) TempSrc: Axillary Oral Oral SpO2: 97% 98% 98% Weight: Height: Physical Exam: General appearance: alert, cooperative, no distress HEENT: (-)icterus, Oropharnyx is normal, forehead with stitches, site is clean Neck: No palpable LN Lungs: breath sounds normal and symmetric; minimal respiratory effort, no r/w/c Heart: normal S1 and S2, no m/r/g Abdomen: soft without mass, non-tender, +bowel sounds, no HSM Extremities/Skin: no gross deformities, FROM, no new rashes, no ulcerations Vascular: no Edema, pulses present bilaterally Neuro: No focal deficits Psych: Appropriate mood and affect Double-lumen PICC line right upper extremity placed 06/05, site is clean Labs Reviewed. Recent Labs Lab Units 06/17/24 2351 06/17/24 0015 06/16/24 0241 BUN SERUM mg/dL 20 18 15 CREATININE mg/dL 0.84 0.70 0.70 Lab Results Component Value Date ALT 5 (L) 06/08/2024 AST 21 06/08/2024 ALKPHOS 217 (H) 06/08/2024 BILITOT 0.5 06/08/2024 Cultures Blood culture 06/13 no growth so far Urinalysis with no significant signs of infection on 06/12 Imaging CTA right upper extremity with no evidence of hematoma or drainable fluid collection. Patent arterial system. No evidence of DVT Assessment: MSSA bacteremia Called microlab during last admission, [facility] blood cultures 05/25 NG. blood cultures were positive for Staph aureus 05/21 and 05/22 Documented at outside hospital, unknown date so far will follow-up with [facility]. 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 Discussed case with Dr. Neli Hutchinson during last admission She underwent CHANCE, with no visible valve vegetation. Repeat blood cultures 05/30 no growth She has AICD in place. There was a clot in [place], probably an appendage clot, hence synchronized Cardioversion was canceled on last admission. Electrophysiology/Cardiology team was following and there was plan for Bi V ICD after completing antibiotic course. Blood cultures were negative at outside hospital from 05/25, blood cultures negative at this facility from 05/30 CT abdomen and pelvis 06/01 With no significant infectious findings Nausea vomiting/syncope due to VF/fall Cardiology is following Dislodged catheter/lead.. PA Atrial fibrillation CHF GERD Hypertension Obstructive sleep apnea Thyroid disease Intellectual disability Plan: Continue on Ancef to complete therapy till 06/22, due to presence of AICD. blood cultures from 05/30 no growth. New blood cultures were ordered due to fever 06/13 . Afebrile now Urinalysis from 06/12 with no signs of infection IR guided PICC line placement on 06/05. Right upper extremity, Dopplers with no DVT, CTA with no hematoma/fluid collection. chest x-ray 06/14 no new infiltrate Urine 06/14 no signs of infection Follow-up on blood cultures from 06/13 Will follow. Eben Pettit MD 06/18/2024 [facility] Office: [phone] Fax: [phone] Voice recognition software was used to complete this document, therefore, hand spray operator variances may occur. * Seth Flores MD - 06/18/2024 9:59 AM CDT Nephrology Progress Note [facility] SUBJECTIVE 06/18 No change. Labs stable. Bp still low. 06/17 Confused, needs sitter. K 4.5 Mg 2.0 All labs reviewed. 06/16 Confused but pleasant tonight. All labs reviewed. K, mg ok. No cardiac issues. Voiding. 06/15 Out of restraints. Doing better. Labs stable. 06/14 Calmer today. Remains in restraints. K and mg okay. Incontinent of urine. No further dysrhythmia. All labs and data reviewed. 06/13 Appears comfortable. All labs and data reviewed. K 3.9, mg 2.0. No further dysrhythmia reported. Uncooperative and agitated earlier. 06/12 Overall stable. All labs and data reviewed. Bp soft, confused. 2 plus blood in urine. OBJECTIVE Vitals: Vitals: 06/17/24 1706 06/17/24 1959 06/18/24 0431 06/18/24 0755 BP: 112/66 134/83 102/52 126/72 BP Location: Left arm Left arm Left arm Right arm Patient Position: Lying Lying Lying Lying Pulse: 86 106 82 87 Resp: 18 18 Temp: 36.8 ??C (98.3 ??F) 36.7 ??C (98.1 ??F) 36.6 ??C (97.8 ??F) 36.7 ??C (98 ??F) TempSrc: Oral Oral Axillary Oral SpO2: 96% 98% 97% 98% Weight: Height: No intake or output data in the 24 hours ending 06/18/24 0959 REVIEW OF SYSTEMS Review of Systems Constitutional: Negative. HENT: Negative. Eyes: Negative. Respiratory: Negative. Cardiovascular: Negative. Gastrointestinal: Negative. Genitourinary: Negative. Musculoskeletal: Negative. Skin: Negative. Allergic/Immunologic: Negative. Hematological: Negative. All other systems reviewed and are negative. PHYSICAL EXAM Physical Exam Constitutional: Appears well-developed. HENT: wnl Head: Normocephalic. Eyes: Pupils are equal, round, and reactive to light. Neck: Normal range of motion. Neck supple. Cardiovascular: Normal rate. Pulmonary/Chest: Effort normal and breath sounds normal. Abdominal: Soft. Musculoskeletal: Normal range of motion. Neurological: Alert, oriented. Skin: Skin is warm. Nursing note and vitals reviewed. MEDICATIONS Current Facility-Administered Medications: acetaminophen (TYLENOL) tablet 650 mg, 650 mg, oral, Q4H PRN, Mell Curran MD, 650 mg at 06/16/24 1155 albuterol HFA (PROVENTIL HFA,VENTOLIN HFA,PROAIR HFA) 90 mcg/actuation inhaler 2 puff, 2 puff, inhalation, Q6H PRN (RT), SitaerDilan MD carvediloL (COREG) tablet 6.25 mg, 6.25 mg, oral, BID with meals (bkfst, dinner), Raj Huizar MD ceFAZolin (ANCEF) 2,000 mg/100 mL in dextrose (premix) 2 g, 2 g, intravenous, Q8H GALINA, Rachel Barnes NP, Last Rate: 200 mL/hr at 06/18/24 0845, 2 g at 06/18/24 0845 cholecalciferol (VITAMIN D-3) tablet 5,000 Units, 5,000 Units, oral, Daily, Rachel Barnes NP, 5,000 Units at 06/18/24 0829 dapagliflozin propanediol (FARXIGA) tablet 10 mg, 10 mg, oral, Daily, Raj Huizar MD dextrose oral liquid liquid 15 g, 15 g, oral, Q15 Min PRN OR dextrose (D10W) 10% bolus 250 mL, 250 mL, intravenous, Q15 Min PRN, Rachel Barnes NP docusate sodium (COLACE) capsule 100 mg, 100 mg, oral, BID, Rachel Barnes NP, 100 mg at 06/18/24 0830 escitalopram (LEXAPRO) tablet 5 mg, 5 mg, oral, Daily, Coleen Samuels MD, 5 mg at 06/18/24829 ferrous sulfate delayed release tablet 65 mg of elemental iron, 65 mg of elemental iron, oral, Daily with breakfast, Rachel Barnes NP, 65 mg of elemental iron at 06/18/24 0830 fluticasone propionate (FLONASE) 50 mcg/actuation nasal spray 1 spray, 1 spray, each nostril, DailyPRN, Rachel Barnes NP glucagon injection 1 mg, 1 mg, intramuscular, Q30 Min PRN, Rachel Barnes NP insulin glargine (LANTUS, SEMGLEE) 100 unit/mL injection 17 Units, 0.15 Units/kg, subcutaneous, Nightly, Rachel Barnes, PAN DEVULCANIZER, 17 Units at 06/17/242049 insulin lispro (HumaLOG, ADMELOG) 100 unit/mL injection 0-4 Units, 0-4 Units, subcutaneous, Nightly, Rachel Barnes, PAN DEVULCANIZER, 1 Units at 06/17/24 230 insulin lispro (HumaLOG, ADMELOG) 100 unit/mL injection 0-5 Units, 0-5 Units, subcutaneous, TID with meals, Rachel Barnes, PAN DEVULCANIZER, 1 Units at 06/18/24 0842 insulin lispro (HumaLOG, ADMELOG) 100 unit/mL injection 6 Units, 0.05 Units/kg, subcutaneous, TID with meals, Rachel Barnes NP, 6 Units at 06/18/24 08 levothyroxine (SYNTHROID) tablet 75 mcg, 75 mcg, oral, QAM, Rachel Barnes NP, 75 mcg at 06/18/24 06 magnesium oxide (MAG-OX) tablet 400 mg, 400 mg, oral, Daily, Seth Flores MD, 400 mg at 06/18/24828 multivit fezhmszc-bzli-FS-calcium (THERA-M) tablet 1 tablet, 1 tablet, oral, Daily, Rachel Barnes NP, 1 tablet at 06/18/24828 nortriptyline (PAMELOR) capsule 10 mg, 10 mg, oral, Daily, Rachel Barnes NP, 10 mg at 06/18/24 08 OLANZapine (ZyPREXA) 5 mg in sterile water 1 mL (5 mg/mL) syringe, 5 mg, intramuscular, Q6H PRN, Mell Curran MD pantoprazole DR (PROTONIX) extended release tablet 40 mg, 40 mg, oral, Daily, Rachel Barnes NP, 40 mg at 06/18/24828 potassium chloride ER (KLOR-CON) extended release tablet 40 mEq, 40 mEq, oral, Daily, Coleen Samuels MD, 40 mEq at 06/18/24828 rivaroxaban (XARELTO) tablet 20 mg, 20 mg, oral, Daily with dinner, Rachel Barnes NP, 20 mgat 06/17/24 1709 sacubitriL-valsartan (ENTRESTO) 24-26 mg tablet 1 tablet, 1 tablet, oral, BID, Rachel Barnes NP, 1 tablet at 06/18/24 0829 spironolactone (ALDACTONE) split tablet 12.5 mg, 12.5 mg, oral, Daily, Raj Huizar MD Lab/Radiology/Diagnostic Review: Recent Results (from the past 24 hour(s)) POCT glucose Collection Time: 06/17/24 11:38 AM Result Value Ref Range Glucose, POC 220 (H) 70 - 199 mg/dL POCT glucose Collection Time: 06/17/24 4:37 PM Result Value Ref Range Glucose, POC 146 70 - 199 mg/dL POCT glucose Collection Time: 06/17/24 8:08 PM Result Value Ref Range Glucose, POC 231 (H) 70 - 199 mg/dL Magnesium Collection Time: 06/17/24 11:51 PM Result Value Ref Range Magnesium 1.9 1.4 - 2.5 mg/dL Renal function panel Collection Time: 06/17/24 11:51 PM Result Value Ref Range Sodium 136 135 - 145 mmol/L Potassium, pl 4.5 3.3 - 4.9 mmol/L Chloride 100 97 - 110 mmol/L CO2 26 22 - 32 mmol/L Anion gap 10 2 - 15 mmol/L BUN 20 6 - 25 mg/dL Creatinine 0.84 0.60 - 1.10 mg/dL Glucose 208 (H) 70 - 199 mg/dL Calcium 9.1 8.5 - 10.3 mg/dL Phosphorus, pl 3.2 2.3 - 4.5 mg/dL Albumin 3.3 (L) 3.5 - 5.0 g/dL eGFR Collection Time: 06/17/24 11:51 PM Result Value Ref Range eGFR 79 >=60 mL/min/1.73 m2 POCT glucose Collection Time: 06/18/24 2:04 AM Result Value Ref Range Glucose, POC 179 70 - 199 mg/dL POCT glucose Collection Time: 06/18/24 6:50 AM Result Value Ref Range Glucose, POC 161 70 - 199 mg/dL Recent Labs Lab Units 06/14/24 1415 06/12/24 0646 CLARITY U Clear Clear COLOR U Yellow Yellow KETONES UR Negative Negative NITRITE UR Negative Negative SPEC GRAV U 1.019 1.026 UROBILINOGEN UR mg/dL <2.0 <2.0 WBC UR QT /HPF -- 0-5 CTA Upper Extremity Right W WO Contrast Result Date: 06/07/2024 Narrative: EXAMINATION: CTA UPPER EXTREMITY RIGHT W WO CONTRAST HISTORY: Right upper arm swelling ORDER DATE: 06/06/2024 10:40 PM TECHNIQUE: Imaging protocol: Computed tomographic angiography of the right upper extremity with contrast, including non-contrast images if performed. 3D rendering (Not supervised by radiologist): MIP and/or 3D reconstructed images were created by the technologist. Contrast material: OPTIRAY 350; Contrast volume: 119 ml IV COMPARISON: CT CHEST PE (CTA) W CONTRAST 05/30/2024 FINDINGS: Tubes, catheters and devices: There is a PICC line inserted through the right basilicvein at the level of the distal arm. There is mild fat stranding within the anterior distal arm, without sizable hematoma or drainable fluid collection. No evidence of active extravasation. Pulmonaryarteries: There is a partially visualized curvilinear metallic structure within the right pulmonaryartery, similar to prior. Right subclavian artery: No acute findings. No occlusion or significant stenosis. Axillary artery: No acute findings. No occlusion or significant stenosis. Brachial artery: No acute findings. No occlusion or significant stenosis. Radial artery: No acute findings. No occlusion or significant stenosis. Ulnar artery: No acute findings. No occlusion or significant stenosis. Veins: Peripheral intravenous access is seen within the cephalic vein at the level of the antecubital fossa. Impression: 1. Patent arterial system of the right upper extremity as detailed above. 2. No evidence of hematoma or drainable fluid collection Stat report by [facility] Electronically signed by: Andrea Abernathy M.D. ECG 12 lead Result Date: 06/06/2024 Narrative: Vent Rate: 78 bpm RR Interval: 763 msec OH Interval: 0 msec QRS Duration: 154 msec QT Interval: 473 msec QTC Interval: 506 msec P-R-T [place]: 0 - 23 - 94 degrees IMPRESSION: ATRIAL FIBRILLATION Occasional ventricular pacing INDETERMINATE AXIS Left bundle branch block ABNORMAL ECG Electronically Signed By: Dr. Shiloh Muhammad [facility] US Vein Duplex Upper Extremity Right Limited, Unilateral Result Date: 06/06/2024 Narrative: EXAMINATION: US VEIN DUPLEX UPPER EXTREMITY RIGHT LIMITED, UNILATERAL HISTORY: The patient is a 63-year-old female who presents with swelling in the right upper extremity. TECHNIQUE: Rightupper extremity venous duplex study was performed with hahn scale imaging, color Doppler imaging and spectral waveform analysis. FINDINGS: There is normal compressibility and phasicity in both internal jugular and subclavian veins as well as the right axillary, brachial, radial, ulnar, cephalic andbasilic veins. Imaging of these veins reveals no thrombus within the lumen. Impression: There is no evidence of acute DVT in the right upper extremity. Electronically signed by: Conrad Davila M.D. XR Chest Pa Lateral 2 Views Result Date: 06/06/2024 Narrative: EXAMINATION: XR CHEST PA LATERAL 2 VIEWS HISTORY: The patient is a 63-year-old female who has had placement of a PICC line. Comparison made with the previous study dated 12/26/2020. TECHNIQUE: AP and lateral view of the chest. FINDINGS: The distal tip of the right PICC line is in the distal superior vena cava. Cardiomegaly with aortic atherosclerosis. No failure. No active infiltrate. Impression: No failure. Electronically signed by: Conrad Davila M.D. IR PICC Line Placement Over 5 Years of Age Result Date: 06/05/2024 Narrative: EXAMINATION: IR PICC LINE PLACEMENT OVER 5 YEARS OF AGE DATE: 06/05/2024 2:05 PM HISTORY:sepsis Unsuccessful attempt at bedside PICC line placement by in-house vascular team. TECHNIQUE: The risks, benefits, and alternatives were discussed and informed consent was obtained. Prior to beginn ing the procedure, universal protocol was performed to confirm the patient's identity and the planned procedure. Maximum sterile barriers including cap, mask, hand hygiene, sterile gloves, sterile gown, large sterile drape, sterile gel, sterile ultrasound probe cover, and 2% chlorhexidine for cutaneous antisepsis were used. The skin over the right basilic vein was sterilely prepped, draped, and infiltrated with lidocaine. Prior to the procedure, this target vessel was evaluated by ultrasound and an image of the patent vessel demonstrating vessel patency was recorded in the patient's electronic medical record. This vessel was then accessed using real-time ultrasound guidance. A guidewire waspassed centrally using fluoroscopic guidance. The intravascular length from the access site to the right atrium was assessed. After dilating the tract, a 45 cm, 5-[place] dual-lumen PICC was inserted through the peel-away sheath. The peel-away sheath was then removed. The catheter was flushed and sec ured in place. A sterile dressing was applied. The final fluoroscopic image demonstrates the catheter with its tip at the cavoatrial junction. No complications were identified. The catheter is ready for immediate use. When treatment is completed, this catheter can be removed at the bedside according to standard hospital protocol. Impression: Successful PICC placement using ultrasound guidance. Electronically signed by: Blaine Nash M.D. XR Chest 1 View Result Date: 06/05/2024 Narrative: EXAMINATION: XR CHEST 1 VIEW HISTORY: The patient is a 63-year-old female who has had anattempted PICC line placement. Comparison made with the previous study dated 05/29/2024. TECHNIQUE:AP portable view of the chest. FINDINGS: Cardiomegaly with aortic atherosclerosis. No failure. No active infiltrate. Impression: Cardiomegaly. Electronically signed by: Conrad Davila M.D. ECG 12 lead Result Date: 06/02/2024 Narrative: Vent Rate: 86 bpm RR Interval: 697 msec OH Interval: 0 msec QRS Duration: 157 msec QT Interval: 470 msec QTC Interval: 513 msec P-R-T [place]: 0 - 38 - 88 degrees IMPRESSION: ATRIAL FIBRILLATION WITH ABERRANT CONDUCTION OR VENTRICULAR PREMATURE COMPLEXES LEFT BUNDLE BRANCH BLOCK [120+ ms QRS DURATION, 80+ ms Q/S IN V1/V2, 85+ ms R IN I/aVL/V5/V6] ABNORMAL ECG Compared to prior EKG, ventricular pacing is no longer present Electronically Signed By: Antonio Carlos MD ECG 12 lead Result Date: 06/02/2024 Narrative: Vent Rate: 76 bpm RR Interval: 782 msec OH Interval: 0 msec QRS Duration: 158 msec QT Interval: 494 msec QTC Interval: 525 msec P-R-T [place]: 0 - 116 - 120 degrees IMPRESSION: ATRIAL FIBRILLATION WITH demand ventricular pacemaker MARKED RIGHT AXIS DEVIATION [QRS AXIS > 100] INTRAVENTRICULAR CONDUCTION DELAY [130+ ms QRS DURATION] ABNORMAL ECG Compared to prior EKG, demand ventricular pacing is new Electronically Signed By: Antonio Carlos MD CT Abdomen Pelvis W Contrast Result Date: 06/01/2024 Narrative: EXAMINATION: CT ABDOMEN PELVIS W CONTRAST DATE: 06/01/2024 1:05 PM HISTORY: Sepsis. COMPARISON: 02/28/2017. TECHNIQUE: Transaxial computed tomographic images of the abdomen and pelvis were obtained after the administration of 119 mL of Optiray 350 intravenously. Multiplanar coronal and sagittal images were reformatted. FINDINGS: Similar scarring in the left lung base unchanged since 2017. There is cardiomegaly and mosaic attenuation in the lung bases suggestive of pulmonary edema. There is a small hiatal hernia. Cholecystectomy. Diffuse hepatic steatosis. The spleen, pancreas, and adrenal glands are unremarkable. Kidneys are unremarkable. No hydroureteronephrosis. Unopacified bladder is unremarkable. Uterus and adnexal structures are unremarkable. No free fluid in the pelvis. There is diverticulosis. No evidence of diverticulitis. The small bowel is unremarkable. Mild atherosclerotic calcifications in the aorta and branch vessels. Subcutaneous tissues are unremarkable. No pathologic by size criteria lymphadenopathy. Mild bilateral sacroiliac joint arthrosis. No acute fracture. No pathologic by size criteria lymphadenopathy. Impression: 1. Mosaic attenuation in the lung bases suggestive of interstitial pulmonary edema. 2. Diffuse hepatic steatosis. 3. Small hiatal hernia. 4. Trace left pleural effusion. 5. Additional chronic or incidental findings as above. Electronically signed by: Azeem Robins II, D.O. ECG 12 lead Result Date: 06/01/2024 Narrative: Vent Rate: 102 bpm RR Interval: 584 msec OH Interval: 0 msec QRS Duration: 149 msec QT Interval: 387 msec QTC Interval: 446 msec P-R-T [place]: 0 - 115 - 66 degrees IMPRESSION: ATRIAL FIBRILLATION WITH RAPID VENTRICULAR RESPONSE WITH ABERRANT CONDUCTION OR VENTRICULAR PREMATURE COMPLEXES INDETERMINATE AXIS INTRAVENTRICULAR CONDUCTION DELAY [130+ ms QRS DURATION] ABNORMAL ECG NO CHANGE FROM PREVIOUS TRACING NOTED Electronically Signed By: Antonio Carlos MD ECG 12 lead Result Date: 06/01/2024 Narrative: Vent Rate: 83 bpm RR Interval: 716 msec OH Interval: 0 msec QRS Duration: 154 msec QT Interval: 409 msec QTC Interval: 449 msec P-R-T [place]: 0 - 123 - 189 degrees IMPRESSION: ATRIAL FIBRILLATION INTRAVENTRICULAR CONDUCTION DELAY LATERAL MYOCARDIAL INFARCTION , OF INDETERMINATE AGE Electronically Signed By: Cristino Kingsley MD, [facility] ECG 12 lead Result Date: 05/31/2024 Narrative: Vent Rate: 74 bpm RR Interval: 810 msec OH Interval: 0 msec QRS Duration: 151 msec QT Interval: 449 msec QTC Interval: 476 msec P-R-T [place]: 0 - 102 - 146 degrees IMPRESSION: VENTRICULAR PACED RHYTHM Electronically Signed By: Cristino Kingsley MD, [facility] ECG 12 lead Result Date: 05/31/2024 Narrative: Vent Rate: 76 bpm RR Interval: 785 msec OH Interval: 0 msec QRS Duration: 150 msec QT Interval: 471 msec QTC Interval: 501 msec P-R-T [place]: 0 - 80 - 97 degrees IMPRESSION: ATRIAL FIBRILLATION WITH ABERRANT CONDUCTION OR VENTRICULAR PREMATURE COMPLEXES INTRAVENTRICULAR CONDUCTION DELAY [130+ ms QRS DURATION] ABNORMAL ECG Electronically Signed By: Dr. Shiloh Muhammad [facility] ECG 12 lead Result Date: 05/30/2024 Narrative: Vent Rate: 109 bpm RR Interval: 548 msec OH Interval: 0 msec QRS Duration: 149 msec QT Interval: 398 msec QTC Interval: 462 msec P-R-T [place]: 0 - 96 - 89 degrees IMPRESSION: ATRIAL FIBRILLATION WITH RAPID VENTRICULAR RESPONSE BORDERLINE RIGHT AXIS DEVIATION [QRS AXIS > 90] INTRAVENTRICULAR CONDUCTION DELAY [130+ ms QRS DURATION] ABNORMAL ECG Unchanged compared to an EKG done earlier on May 30, 2024 Electronically Signed By: Dr. Shiloh Muhammad [facility] CT Chest WO Contrast Result Date: 05/30/2024 Narrative: EXAMINATION: Computed tomography of the chest without intravenous contrast HISTORY: Right lower lobe pulmonary artery for and body TECHNIQUE: Transaxial computed tomographic images of the chest were obtained without intravenous contrast according to the standard protocol. COMPARISON: 05/30/[address] angiography. FINDINGS: Bilateral small pleural effusions and atelectasis. There is trace pulmonary edema. Heart is enlarged. Small volume pericardial effusion. Pacemaker defibrillator leads terminate in the right atrium and right ventricle. There left hilar calcified granulomas. There is a curvilinear density originating in the right lower lobe pulmonary artery and extending distally into a lateral basilar subsegmental branch vessel. Visualized portions of the upper abdomen demonstrate changes of cholecystectomy. No suspicious osseous lesions. Impression: 1. Redemonstrated curvilinear radiopaque density extending from the proximal right lower lobe pulmonary artery into a subsegmental lateral basilar branch favors a catheter or wire fragment. 2. Findings most suggestive of heart failure with cardiomegaly, small volume pericardial effusion, and small bilateral pleural effusions and mild pulmonary edema. Electronically signed by: Abilio Post M.D. Transthoracic Echo (TTE) Complete W Doppler/CF Result Date: 05/30/2024 Narrative: [place] [address] Echocardiogram Report Patient Name: LEI RODRIGUEZ V : 1960 Study Date: 05/30/2024 7:47:08 AM Gender: F Tech: GUILHERME Location: [id number] Ref Provider: TY MCFARLAND Height(Cm): 165 BSA: 2.43 Weight(Kg): 128.7 Heart Rate: 94 BP: 135/84 Quality: Good Order Provider: TY MCFARLAND PROCEDURES: Echocardiographic Report: Transthoracic echocardiogram with complete 2D, M-Mode, color Doppler examination and contrast. INDICATIONS: Endocarditis.Measurements: 2D/M Mode Doppler Measurement Value Normal Range [...] 3.80 ] cm LVOT VTI 16.72 cm AoRDiam MM 3.13 [ 2.70 - 3.70 ] cm MV E Peak Chadd 1.00 [ 0.60 - 1.30 ] m/s LA Volume Index 22.99 [ 16.00 - 34.00 ] cc/m2 MV A Peak Chadd 0.31 [ 1.00 - 1.20 ] m/s ACS MM 2.14 cm MV Mean PG 2 mmHg MV PHT 54[ 20 - 100 ] msec MVA PHT 4.11 cm2 MV Decel Time 169 [ 104 - 258 ] msec PV Peak Chadd 1.14 [ 0.40 - 0.80 ] m/s TR Peak Chadd 2.94 [ 1.00 - 2.80 ] m/s TR Peak PG 35 mmHg RVSP 38.00 [ 10.00 - 36.00 ] mmHgE` 0.05 m/s E/E` 19.29 Measurement Value Normal [...] Right Ventricle: Normal right ventricular systolic function. Pac emaker noted. Right Atrium: There is mild enlargement [...] peak RVSP is 42 mmHg. Mild to m oderate tricuspid regurgitation. Pericardium: Trivial pericardial effusion. Aorta: Mild aortic rootcalcification. IVC: Dilated IVC without respiratory collapse consistent [...] effusion. Electronically Signed By: Coleen Cortez DO, [facility], MELISSA CANDELARIO 2024-05-30 09:18:05 CDT CC: CC: CC: XR Chest 1 View Result Date: 05/30/2024 Narrative: EXAMINATION: XR CHEST 1 VIEW History: Shortness of breath Impression: Single view chest exam similar for interpretation with comparison to prior from 03/07/2017. Correlation made with CT from the same day There are diffuse interstitial and airspace opacitiescompatible with moderate pulmonary edema. Likely small effusions. Heart is enlarged. There is a curvilinear density projecting over the right lower lung which corresponds to a catheter or wire in theright lower lobe pulmonary arteries when correlated with the CT examination. This finding is not present on the prior 2017 examination. The presence of this finding was discussed by Dr. Abernathy with Dr. Hollis and documented by Dr. Hollis in the medical record on 05/30/2024 at 457. Electronically signed by: Abilio Post M.D. ECG 12 lead Result Date: 05/30/2024 Narrative: Vent Rate: 86 bpm RR Interval: 697 msec OH Interval: 0 msec QRS Duration: 145 msec QT Interval: 438 msec QTC Interval: 481 msec P-R-T [place]: 0 - 101 - 95 degrees IMPRESSION: ATRIAL FIBRILLATION RIGHT AXIS DEVIATION [QRS AXIS > 100] INTRAVENTRICULAR CONDUCTION DELAY [130+ ms QRS DURATION] ABNORMAL ECG Unchanged compared to 05/29/2021 Electronically Signed By: Dr. Shiloh Muhammad [facility] CT Chest PE (CTA) W Contrast Result Date: 05/30/2024 Narrative: EXAMINATION: CT CHEST PE (CTA) W CONTRAST HISTORY: Chest pain ORDER DATE: 05/30/2024 3:20AM TECHNIQUE: CT chest images were acquired using a chest angiographic protocol with 3-D imaging optimized for PE is obtained [id number] mL of Optiray 350 IV. 2D Coronal and sagittal reformats were obtained. 3-D rendering (not supervised by radiologist) MIP and/or 3-D reconstructed images were created by the technologist. FINDINGS: Dual lead pacer device implanted in the left chest wall with leads in the right atrium and right ventricle. Pulmonary arteries: Dilated main pulmonary artery measuring 4.9 cm. Some of the segmental branches are not well assessed for exclusion of subtle emboli due to excessive motion. Otherwise centrally no pulmonary artery emboli. A dislodged catheter is visualized in the distal right pulmonary artery extending into the lobar and segmental right lower lobe pulmonary artery branch, image [id number] 134/coronal series 9. Aorta: Unremarkable. No aortic aneurysm. No aortic dissection. Lungs: Diffuse multilobar septal thickening, peribronchial thickening and increasedground-glass alveolar airspace opacity of the lung parenchyma representing findings of pulmonary interstitial edema. Pleural spaces: Mild left and trace to mild right pleural effusions. Heart: Four-chamber enlarged heart. Reflux of contrast within the hepatic veins and IVC may suggest right heart failure. Trace to mild pericardial effusion present. Lymph nodes: Multiple calcified mediastinal and hilar lymph nodes which suggest prior exposure to granulomatous disease. No lymphadenopathy. Diaphragm: There is a small hiatal hernia. Liver: Coarsened nodular hepatic parenchyma may suggest underlying chronic hepatocellular disease. Liver is prominent in size measuring 17.5 cm. Gallbladder and biliary ducts: Cholecystectomy. Bones/joints: No acute fracture. Soft tissues: Unremarkable. Impression: 1. Motion degraded evaluation of the pulmonary arteries. Some of the segmental branchesare not well assessed for exclusion of subtle emboli. Otherwise centrally no pulmonary artery emboli. 2. Pulmonary arterial hypertension and dislodged the catheter visualized in the distal right pulmonary artery and right lower lobe lobar and segmental pulmonary artery branch. 3. CHF, pulmonary edema and small bilateral pleural effusions. 4. Possible congestive cirrhosis. Correlate with LFTs. 5. Additional findings as described above. Stat report by [facility] . Electronically signed by: Andrea Abernathy M.D. CT Cervical Spine WO Contrast Result Date: 05/30/2024 Narrative: EXAMINATION: CT CERVICAL SPINE WO CONTRAST HISTORY: Neck pain ORDER DATE: 05/29/2024 10:55 PM TECHNIQUE: Multiple helical axial images of the cervical spine were obtained without the administration of contrast. Coronal and sagittal reformatted images were included. FINDINGS: Bones: No acute fracture. Chronic mild C6 loss of vertebral body height present. Normal alignment. Mild right C3-C4 facet arthrosis. C3-C4 disc narrowing and partially calcified bulging disc contributing to [id number] central spinal stenosis. Disc osteophyte complex also contributing to [id number] central spinal stenosis at C4-C5 level. No significant disc bulge or herniation. No severe spinal canal stenosis. Uncovertebral joint hypertrophy contributing to multilevel bilateral neural foraminal stenosis. Lungs: Lung apices are normal. Soft tissues: Unremarkable. Impression: No acute cervical spine injury. Stat report by [facility] Stat report by [facility] Electronically signed by: Andrea Abernathy M.D. CT Head WO Contrast Result Date: 05/30/2024 Narrative: EXAMINATION: CT head without contrast HISTORY: Headache, new or worsening (Age >= 50y) TECHNIQUE: Noncontrast CT of the brain was performed with images acquired from skull base to vertex. COMPARISON: None available. FINDINGS: Brain: Global volume loss and cortical dilatation present. No hemorrhage. Mild chronic microvascular ischemic changes of the periventricular white matter. No mass effect. No edema. Cerebral ventricles: No ventriculomegaly. Paranasal sinuses: Visualized sinuses are unremarkable. No fluid levels. Mastoid air cells: Visualized mastoid air cells are well aerated. Bones: Unremarkable. No acute fracture. Soft tissues: Unremarkable. Impression: No acute intracranial findings. Stat report by [facility] Electronically signed by: Andrea Abernathy M.D. ECG 12 lead Result Date: 05/30/2024 Narrative: Vent Rate: 93 bpm RR Interval: 645 msec [place] Interval: 0 msec QRS Duration: 97 msec QT Interval: 197 msec QTC Interval: 247 msec P-R-T [place]: 0 - 118 - 0 degrees IMPRESSION: ATRIAL FIBRILLATION WITH ABERRANT CONDUCTION OR VENTRICULAR PREMATURE COMPLEXES LOW QRS VOLTAGE [QRS DEFLECTION < 0.5/1.0 mV IN LIMB/CHEST LEADS] SEPTAL MYOCARDIAL INFARCTION , PROBABLY OLD [40+ ms Q WAVE IN V1/V2]Nonspecific IVCD LATERAL MYOCARDIAL INFARCTION , OF INDETERMINATE AGE [40+ ms Q WAVE AND/OR ST/T ABNORMALITY IN I/aVL/V5/V6] ABNORMAL ECG Electronically Signed By: Antonio Carlos MD ASSESSMENT/PLAN Controlled type 2 diabetes mellitus with chronic kidney disease, with long-term current use of insulin (HCC) Hypothyroidism Hypotension due to drugs Chronic diastolic congestive heart failure (CMS/HCC) (HCC) Endocarditis Urinary frequency Gastroesophageal reflux disease without esophagitis Paroxysmal atrial fibrillation (CMS/HCC) (HCC) Major depressive disorder CKD (chronic kidney disease) CKD ? Hypokalemia/hypomag. Recent endocarditis. Recurrent ICD firing. A fib. DM/HTN. Hx of CHF. Hypothyroidism. PLAN Renal fn is stable, ckd/gerald ocasio not indicated. Hold lasix, keep K over 4, Mg over 2. Cards ocasio, ICD interrogation, Hold Tikosyn/BB. Daily RFP. Will d/w cardiology Repeat CHANCE. 06/12, d/w cards, monitor k, mg and cr, recs as above, monitor microscopic hematuria, start mgo and kcl. 06/13, K and mg acceptable, rpt ua, continue K and mg at current dose. 06/14, k and mg stable, stable renal fn/lytes, continue daily RFP and mag. 06/15, same management, no changes. -06/16, k, mg stable, no reported cardiac rhythm issues, will follow. -06/17, BP low, k, mg, lytes stable, iv abx. -06/18, egfr 79, k, mg stable, dc all bp meds. I can be reached at [phone] with any concerns. Thank you Mell Curran MD for the consult. Seth Flores MD [employer] [phone] * Mell Curran MD - 06/18/2024 9:53 AM CDT DAILY PROGRESS NOTE C/C:Fall and passed out Interval History: No new events Consults: Ty Mcfarland MD Singh, Inderjit, MD SUBJECTIVE: Complaints: I am not feeling good ROS: Denies any pain or SOB OBJECTIVE: Vitals: Temp (24hrs), Av.7 ??C (98.1 ??F), Min:36.6 ??C (97.8 ??F), Max:36.8 ??C (98.3 ??F) Vitals: 06/17/24 1706 06/17/24 1959 06/18/24 0431 06/18/24 0755 BP: 112/66 134/83 102/52 126/72 BP Location: Left arm Left arm Left arm Right arm Patient Position: Lying Lying Lying Lying Pulse: 86 106 82 87 Resp: 18 18 Temp: 36.8 ??C (98.3 ??F) 36.7 ??C (98.1 ??F) 36.6 ??C (97.8 ??F) 36.7 ??C (98 ??F) TempSrc: Oral Oral Axillary Oral SpO2: 96% 98% 97% 98% Weight: Height: LDA: PICC Double Lumen 06/05/24 Non-tunneled Power #1 Red, #2 Purple, Right Basilic;Upper arm (Active) Placement Date/Time: 06/05/24 1505 Catheter Time Out Checklist Completed: Yes Hand Hygiene Performed: Yes Site Prep: Chlorhexidine Site Prep Agent has Completely Dried Before Insertion: Yes All 5 Sterile Barriers or Appropriate Barriers Used (Gl... Number of days: 7 I/O: No intake or output data in the 24 hours ending 06/18/24 0953 Physical Exam General: Up in chair, awake,alert,on RA, NADl SHEENT:Skin warm,dry,no rashes. No icterus,no cyanosis,no pallor,EOMI. Neck:Supple Respi:Slightly diminished breath sounds [place] Cardio:RRR,no murmur GI:Abdomen obese,soft,bowel sounds +,non tender,not distended. Extre:No edema,no cyanosis,no pallor Neuro:Awake,alert,answering questions appropriately.Following commands Psych:No agitation Laboratory: Recent Results (from the past 24 hour(s)) POCT glucose Collection Time: 06/17/24 11:38 AM Result Value Ref Range Glucose, POC 220 (H) 70 - 199 mg/dL POCT glucose Collection Time: 06/17/24 4:37 PM Result Value Ref Range Glucose, POC 146 70 - 199 mg/dL POCT glucose Collection Time: 06/17/24 8:08 PM Result Value Ref Range Glucose, POC 231 (H) 70 - 199 mg/dL Magnesium Collection Time: 06/17/24 11:51 PM Result Value Ref Range Magnesium 1.9 1.4 - 2.5 mg/dL Renal function panel Collection Time: 06/17/24 11:51 PM Result Value Ref Range Sodium 136 135 - 145 mmol/L Potassium, pl 4.5 3.3 - 4.9 mmol/L Chloride 100 97 - 110 mmol/L CO2 26 22 - 32 mmol/L Anion gap 10 2 - 15 mmol/L BUN 20 6 - 25 mg/dL Creatinine 0.84 0.60 - 1.10 mg/dL Glucose 208 (H) 70 - 199 mg/dL Calcium 9.1 8.5 - 10.3 mg/dL Phosphorus, pl 3.2 2.3 - 4.5 mg/dL Albumin 3.3 (L) 3.5 - 5.0 g/dL eGFR Collection Time: 06/17/24 11:51 PM Result Value Ref Range eGFR 79 >=60 mL/min/1.73 m2 POCT glucose Collection Time: 06/18/24 2:04 AM Result Value Ref Range Glucose, POC 179 70 - 199 mg/dL POCT glucose Collection Time: 06/18/24 6:50 AM Result Value Ref Range Glucose, POC 161 70 - 199 mg/dL Radiology: Scheduled Medications: carvediloL, 6.25 mg, oral, BID with meals (bkfst, dinner) ceFAZolin, 2 g, intravenous, Q8H GALINA cholecalciferol, 5,000 Units, oral, Daily dapagliflozin propanediol, 10 mg, oral, Daily docusate sodium, 100 mg, oral, BID escitalopram, 5 mg, oral, Daily ferrous sulfate, 65 mg of elemental iron, oral, Daily with breakfast insulin glargine, 0.15 Units/kg, subcutaneous, Nightly insulin lispro, 0-4 Units, subcutaneous, Nightly insulin lispro, 0-5 Units, subcutaneous, TID with meals insulin lispro, 0.05 Units/kg, subcutaneous, TID with meals levothyroxine, 75 mcg, oral, QAM magnesium oxide, 400 mg, oral, Daily multivit skozcmud-dyyf-TX-calcium, 1 tablet, oral, Daily nortriptyline, 10 mg, oral, Daily pantoprazole DR, 40 mg, oral, Daily potassium chloride ER, 40 mEq, oral, Daily rivaroxaban, 20 mg, oral, Daily with dinner sacubitriL-valsartan, 1 tablet, oral, BID spironolactone, 12.5 mg, oral, Daily Current Facility-Administered Medications: acetaminophen (TYLENOL) tablet 650 mg, 650 mg, oral, Q4H PRN, Mell Curran MD, 650 mg at 06/16/24 1155 albuterol HFA (PROVENTIL HFA,VENTOLIN HFA,PROAIR HFA) 90 mcg/actuation inhaler 2 puff, 2 puff, inhalation, Q6H PRN (RT), Dilan Palmer MD carvediloL (COREG) tablet 6.25 mg, 6.25 mg, oral, BID with meals (bkfst, dinner), Raj Huizar MD ceFAZolin (ANCEF) 2,000 mg/100 mL in dextrose (premix) 2 g, 2 g, intravenous, Q8H GALINA, Rachel Barnes NP, Last Rate: 200 mL/hr at 06/18/24 0845, 2 g at 06/18/24 0845 cholecalciferol (VITAMIN D-3) tablet 5,000 Units, 5,000 Units, oral, Daily, Rachel Barnes NP, 5,000 Units at 06/18/24 0829 dapagliflozin propanediol (FARXIGA) tablet 10 mg, 10 mg, oral, Daily, Raj Huizar MD dextrose oral liquid liquid 15 g, 15 g, oral, Q15 Min PRN OR dextrose (D10W) 10% bolus 250 mL, 250 mL, intravenous, Q15 Min PRN, Rachel Barnes NP docusate sodium (COLACE) capsule 100 mg, 100 mg, oral, BID, Rachel Barnes NP, 100 mg at 06/18/24829 escitalopram (LEXAPRO) tablet 5 mg, 5 mg, oral, Daily, Coleen Samuels MD, 5 mg at 06/18/24829 ferrous sulfate delayed release tablet 65 mg of elemental iron, 65 mg of elemental iron, oral, Daily with breakfast, Rachel Barnes NP, 65 mg of elemental iron at 06/18/2430 fluticasone propionate (FLONASE) 50 mcg/actuation nasal spray 1 spray, 1 spray, each nostril, DailyPRN, Rachel Barnes NP glucagon injection 1 mg, 1 mg, intramuscular, Q30 Min PRN, Rachel Barnes NP insulin glargine (LANTUS, SEMGLEE) 100 unit/mL injection 17 Units, 0.15 Units/kg, subcutaneous, Nightly, Rachel Barnes NP, 17 Units at 06/17/242049 insulin lispro (HumaLOG, ADMELOG) 100 unit/mL injection 0-4 Units, 0-4 Units, subcutaneous, Nightly, Rachel Barnes, PAN DEVULCANIZER, 1 Units at 06/17/24 2305 insulin lispro (HumaLOG, ADMELOG) 100 unit/mL injection 0-5 Units, 0-5 Units, subcutaneous, TID with meals, Rachel Barnes, PAN DEVULCANIZER, 1 Units at 06/18/24 0842 insulin lispro (HumaLOG, ADMELOG) 100 unit/mL injection 6 Units, 0.05 Units/kg, subcutaneous, TID with meals, Rachel Barnes, PAN DEVULCANIZER, 6 Units at 06/18/24 0833 levothyroxine (SYNTHROID) tablet 75 mcg, 75 mcg, oral, QAM, Rachel Barnes PAN DEVULCANIZER, 75 mcg at 06/18/24 0627 magnesium oxide (MAG-OX) tablet 400 mg, 400 mg, oral, Daily, Seth Flores MD, 400 mg at 06/18/24 0829 multivit spkkenpb-wxmr-VB-calcium (THERA-M) tablet 1 tablet, 1 tablet, oral, Daily, Rachel Barnes PAN DEVULCANIZER, 1 tablet at 06/18/24 0829 nortriptyline (PAMELOR) capsule 10 mg, 10 mg, oral, Daily, Rachel Barnes PAN DEVULCANIZER, 10 mg at 06/18/24 0830 OLANZapine (ZyPREXA) 5 mg in sterile water 1 mL (5 mg/mL) syringe, 5 mg, intramuscular, Q6H PRN, Mell Curran MD pantoprazole DR (PROTONIX) extended release tablet 40 mg, 40 mg, oral, Daily, Rachel Barnes,PAN DEVULCANIZER, 40 mg at 06/18/24 08 potassium chloride ER (KLOR-CON) extended release tablet 40 mEq, 40 mEq, oral, Daily, Coleen Samuels MD, 40 mEq at 06/18/24 08 rivaroxaban (XARELTO) tablet 20 mg, 20 mg, oral, Daily with dinner, Rachel Barnes NP, 20 mgat 06/17/24 1709 sacubitriL-valsartan (ENTRESTO) 24-26 mg tablet 1 tablet, 1 tablet, oral, BID, Rachel Barnes PAN DEVULCANIZER, 1 tablet at 06/18/24 0829 spironolactone (ALDACTONE) split tablet 12.5 mg, 12.5 mg, oral, Daily, Raj Huizar MD Continuous Medications: PRN Medications: acetaminophen albuterol HFA dextrose OR dextrose fluticasone propionate glucagon OLANZapine Hospital course: 63 y.o. Morbidly obese [place] pt with a PMHx significant for A-fib, CHF, DM II, GERD, HTN, Intellectualdisability, OAB, Sleep apnea, thyroid disease and endocarditis Was brought to ED with chief complaint of fall and passed out ASSESSMENT/PLAN: All diagnoses were present on admission unless otherwise stated. Principal Problem: --Syncope due to Ventricular tachycardia- AICD interrogated at [facility] by [facility], noted 5 discharges on the report. Troponins trended 0.018, 0.030 ( 0.000-0.034) Patient currently in Sinus rhythm on Telemetry. Cardiology has seen and has stopped several medications including Tikosyn. Decreased Lexapro to 5 mg a day Active problems: --DM II- Accu check ACHS cover with SSI, continue Lantus and basal meal time Humalog BS 130-270 --Chronic Reduced ejection fraction heart failure- cardiomegaly noted on chest x-ray, OSH BNP 1600 (19.9-100) no noted edema continue Lasix 40 mg daily, Coreg 25 mg BID and Entresto 24/26 BID, last Echo 05/30/24 EF 30% diastolic dysfunction. --Recent H/O Endocarditis- Continue Ancef 2g every 8 hours for 4 more days --Hypothyroidism- Continue Levothyroxine 75 mcg daily --Urinary frequency-Continue Mirabeqron 25 mg daily --Hypotension- continue midodrine 5 mg TID. Now resolved --GERD-Continue Protonix 40 mg daily --A-fib,S/P PPM- Cardizem has been discontinued . Cardiology is following Continue Xarelto 20 mg daily with dinner --CKD stage II- Stable. consulted Nephrology --Depression- Decreased Lexapro dose to 5 mg due to VTach Continue Nortriptyline 10 mg daily --Agitation 06/12: On Precedex drip. H/O Intellectual disability, developmental delay+. Consulted and D/W Psych.Recommended prn IM Zyprexa 5 mg q 6 hours and wean off Precedex Family did not agree for Zyprexa on 06/13 06/14 Sisters agreed for prn Zyprexa IM 06/15 Weaned off Precedex drip and started on prn IM Zyprexa 06/14 UA neg 06/14 CT Head neg Resolved --Headache following syncope with scalp lac requiring suture : 06/14 CT Head neg DVT Prophylaxis with Xarelto Code status: Full code D/W RN D/W SW Medical Decision Making complexity: Low Expected date of discharge: ? Barriers to discharge:Insurance authorization for new SNF Discharge disposition: nursing home facility Mell Curran MD 06/18/2024 9:53 AM [facility] * Raj Huizar MD - 06/18/2024 9:16 AM CDT Daily Progress [facility] Cardiology Subjective: No acute events and appeared appears depressed denies any chest pain , tele shows AFib OBJECTIVE: Past Medical History: Diagnosis Date A-fib (CMS/HCC) (HCC) CHF (congestive heart failure) (CMS/HCC) (HCC) Diabetes mellitus (HCC) GERD (gastroesophageal reflux disease) Hypertension Intellectual disability OAB (overactive bladder) Sleep apnea Thyroid disease No family history on file. Scheduled Medications Medication Dose Route Frequency carvediloL (COREG) tablet 12.5 mg 12.5 mg oral BID with meals (bkfst, dinner) ceFAZolin (ANCEF) 2,000 mg/100 mL in dextrose (premix) 2 g 2 g intravenous Q8H GALINA cholecalciferol (VITAMIN D-3) tablet 5,000 Units 5,000 Units oral Daily docusate sodium (COLACE) capsule 100 mg 100 mg oral BID escitalopram (LEXAPRO) tablet 5 mg 5 mg oral Daily ferrous sulfate delayed release tablet 65 mg of elemental iron 65 mg of elemental iron oral Daily with breakfast insulin glargine (LANTUS, SEMGLEE) 100 unit/mL injection 17 Units 0.15 Units/kg subcutaneous Nightly insulin lispro (HumaLOG, ADMELOG) 100 unit/mL injection 0-4 Units 0-4 Units subcutaneous Nightly insulin lispro (HumaLOG, ADMELOG) 100 unit/mL injection 0-5 Units 0-5 Units subcutaneous TID with meals insulin lispro (HumaLOG, ADMELOG) 100 unit/mL injection 6 Units 0.05 Units/kg subcutaneous TID withmeals levothyroxine (SYNTHROID) tablet 75 mcg 75 mcg oral QAM magnesium oxide (MAG-OX) tablet 400 mg 400 mg oral Daily multivit wbvuhxqa-hfwa-NC-calcium (THERA-M) tablet 1 tablet 1 tablet oral Daily nortriptyline (PAMELOR) capsule 10 mg 10 mg oral Daily pantoprazole DR (PROTONIX) extended release tablet 40 mg 40 mg oral Daily potassium chloride ER (KLOR-CON) extended release tablet 40 mEq 40 mEq oral Daily rivaroxaban (XARELTO) tablet 20 mg 20 mg oral Daily with dinner sacubitriL-valsartan (ENTRESTO) 24-26 mg tablet 1 tablet 1 tablet oral BID Exam: Gen: Comfortable, NAD for had sutures scar healing CVS: RRR, S1, S2 present, no murmur GI: Soft Non tender Chest: Air entry reduced CTAB Psych: Appropriate mood and affect Neuro: Alert, oriented, No deficits. Recent Labs Lab Units 06/18/24 0650 06/18/24 0204 06/17/24 2351 06/17/24200706/17/24 1637 06/17/24 0219 06/17/24 0015 06/16/24 0628 06/16/24 0241 06/15/24 0810 06/15/24 0609 06/14/24 0749 06/14/24 0435 SODIUM mmol/L -- -- 136 -- -- -- 136 -- 138 -- 136 -- 137 POTASSIUM PLASMA mmol/L -- -- 4.5 -- -- -- 4.5 -- 4.1 -- 4.1 -- 4.1 CHLORIDE mmol/L -- -- 100 -- -- -- 101 -- 104 -- 103 -- 103 CO2 mmol/L -- -- 26 -- -- -- 26 -- 24 -- 26 -- 27 ANIONGAP mmol/L -- -- 10 -- -- -- 9 -- 10 -- 7 -- 7 GLUCOSE mg/dL -- -- 208* -- -- -- 215* -- 130 -- 137 -- 185 POC GLUCOSE MONITOR mg/dL 161 179 -- 231* 146 < > -- < > -- < > -- < > -- BUN SERUM mg/dL -- -- 20 -- -- -- 18 -- 15 -- 16 -- 11 CREATININE mg/dL -- -- 0.84 -- -- -- 0.70 -- 0.70 -- 0.72 -- 0.67 CALCIUM mg/dL -- -- 9.1 -- -- -- 9.2 -- 9.0 -- 8.9 -- 9.2 ALBUMIN g/dL -- -- 3.3* -- -- -- 3.3* -- 3.2* -- 3.0* -- 3.0* < > = values in this interval not displayed. No intake or output data in the 24 hours ending 06/18/24 0916 Vitals: 06/17/24 1706 06/17/24 1959 06/18/24 0431 06/18/24 0755 BP: 112/66 134/83 102/52 126/72 BP Location: Left arm Left arm Left arm Right arm Patient Position: Lying Lying Lying Lying Pulse: 86 106 82 87 Resp: 18 18 Temp: 36.8 ??C (98.3 ??F) 36.7 ??C (98.1 ??F) 36.6 ??C (97.8 ??F) 36.7 ??C (98 ??F) TempSrc: Oral Oral Axillary Oral SpO2: 96% 98% 97% 98% Weight: Height: ASSESSMENT/PLAN: Patient Active Problem List Diagnosis Endocarditis SOB (shortness of breath) Acute on chronic systolic congestive heart failure ([facility]) ([facility]) Neck pain Hyponatremia Chronic a-fib ([facility]) ([facility]) Controlled type 2 diabetes mellitus with chronic kidney disease, with long-term current use of insulin ([facility]) Hypothyroidism JOSE (obstructive sleep apnea) Diabetes mellitus with hyperglycemia ([facility]) ([facility]) Traumatic hematoma of right upper arm Hypotension due to drugs Ventricular tachycardia ([facility]) Chronic diastolic congestive heart failure ([facility]) ([facility]) Endocarditis Urinary frequency Gastroesophageal reflux disease without esophagitis Paroxysmal atrial fibrillation (CMS/HCC) (HCC) Major depressive disorder CKD (chronic kidney disease) V-fib leading to syncope and for head injury -5 episodes of VFib with appropriate ICD firing. - previous LHC that was negative for CAD. Given normal troponin no need for cardiac catheterizationcurrently. She is having no chest pain. She is okay to discharge from Cardiology standpoint. Questionable endocarditis. -no vegetations seen on CHANCE last admission. - ID following Persistent Atrial fibrillation. - CHANCE 05/31/24 that showed left atrial appendage clot therefore no CV - On xarelto for AC. - Tikosyn and calcium channel blockers been discontinued. Chronic systolic congestive heart failure. -Clinically compensated at this time. -EF 30% by echo last admit. Continue BB and Entresto. -diuretics on home. Add Farxiga and Aldactone Diabetes type 2 -as per attending Dislodged catheter in pulmonary artery noted on CT chest Raj Huizar MD, [facility], [facility], [facility] [phone] 06/18/2024 9:16 AM * Seth Flores MD - 06/17/2024 6:10 PM CDT Nephrology Progress Note [facility] SUBJECTIVE 06/17 Confused, needs sitter. K 4.5 Mg 2.0 All labs reviewed. 06/16 Confused but pleasant tonight. All labs reviewed. K, mg ok. No cardiac issues. Voiding. 06/15 Out of restraints. Doing better. Labs stable. 06/14 Calmer today. Remains in restraints. K and mg okay. Incontinent of urine. No further dysrhythmia. All labs and data reviewed. 06/13 Appears comfortable. All labs and data reviewed. K 3.9, mg 2.0. No further dysrhythmia reported. Uncooperative and agitated earlier. 06/12 Overall stable. All labs and data reviewed. Bp soft, confused. 2 plus blood in urine. OBJECTIVE Vitals: Vitals: 06/17/24 0811 06/17/24 1147 06/17/24 1215 06/17/24 1706 BP: 102/64 (!) 91/41 103/55 112/66 BP Location: Left arm Left arm Left arm Left arm Patient Position: Lying Sitting Sitting Lying Pulse: 108 85 86 Resp: 18 20 18 Temp: 36.7 ??C (98.1 ??F) 36.8 ??C (98.2 ??F) 36.8 ??C (98.3 ??F) TempSrc: Oral Oral Oral SpO2: 95% 96% 96% Weight: Height: No intake or output data in the 24 hours ending 06/17/24 1810 REVIEW OF SYSTEMS Review of Systems Constitutional: Negative. HENT: Negative. Eyes: Negative. Respiratory: Negative. Cardiovascular: Negative. Gastrointestinal: Negative. Genitourinary: Negative. Musculoskeletal: Negative. Skin: Negative. Allergic/Immunologic: Negative. Hematological: Negative. All other systems reviewed and are negative. PHYSICAL EXAM Physical Exam Constitutional: Appears well-developed. HENT: wnl Head: Normocephalic. Eyes: Pupils are equal, round, and reactive to light. Neck: Normal range of motion. Neck supple. Cardiovascular: Normal rate. Pulmonary/Chest: Effort normal and breath sounds normal. Abdominal: Soft. Musculoskeletal: Normal range of motion. Neurological: Alert, oriented. Skin: Skin is warm. Nursing note and vitals reviewed. MEDICATIONS Current Facility-Administered Medications: acetaminophen (TYLENOL) tablet 650 mg, 650 mg, oral, Q4H PRN, Mell Curran MD, 650 mg at 06/16/24 1155 albuterol HFA (PROVENTIL HFA,VENTOLIN HFA,PROAIR HFA) 90 mcg/actuation inhaler 2 puff, 2 puff, inhalation, Q6H PRN (RT), BrotherDilan MD carvediloL (COREG) tablet 25 mg, 25 mg, oral, BID with meals (bkfst, dinner), Rachel Barnes NP, 25 mg at 06/17/24 1709 ceFAZolin (ANCEF) 2,000 mg/100 mL in dextrose (premix) 2 g, 2 g, intravenous, Q8H GALINA, Rachel Barnes NP, Last Rate: 200 mL/hr at 06/17/24 1534, 2 g at 06/17/24 1534 cholecalciferol (VITAMIN D-3) tablet 5,000 Units, 5,000 Units, oral, Daily, Rachel Barnes NP, 5,000 Units at 06/17/24 0808 dextrose oral liquid liquid 15 g, 15 g, oral, Q15 Min PRN OR dextrose (D10W) 10% bolus 250 mL, 250 mL, intravenous, Q15 Min PRN, Rachel Barnes NP docusate sodium (COLACE) capsule 100 mg, 100 mg, oral, BID, Rachel Barnes NP, 100 mg at 06/17/24 0809 escitalopram (LEXAPRO) tablet 5 mg, 5 mg, oral, Daily, Coleen Samuels MD, 5 mg at 06/17/24 0808 ferrous sulfate delayed release tablet 65 mg of elemental iron, 65 mg of elemental iron, oral, Daily with breakfast, Rachel Barnes NP, 65 mg of elemental iron at 06/17/2408 fluticasone propionate (FLONASE) 50 mcg/actuation nasal spray 1 spray, 1 spray, each nostril, DailyPRN, Rachel Barnes NP glucagon injection 1 mg, 1 mg, intramuscular, Q30 Min PRN, Rachel Barnes NP insulin glargine (LANTUS, SEMGLEE) 100 unit/mL injection 17 Units, 0.15 Units/kg, subcutaneous, Nightly, Rachel Barnes NP, 17 Units at 06/16/242123 insulin lispro (HumaLOG, ADMELOG) 100 unit/mL injection 0-4 Units, 0-4 Units, subcutaneous, Nightly, Rachel Barnes, PAN DEVULCANIZER, 2 Units at 06/16/242123 insulin lispro (HumaLOG, ADMELOG) 100 unit/mL injection 0-5 Units, 0-5 Units, subcutaneous, TID with meals, Rachel Barnes, ALLY, 2 Units at 06/17/24 1205 insulin lispro (HumaLOG, ADMELOG) 100 unit/mL injection 6 Units, 0.05 Units/kg, subcutaneous, TID with meals, Rachel Barnes NP, 6 Units at 06/17/24 1709 levothyroxine (SYNTHROID) tablet 75 mcg, 75 mcg, oral, QAM, Rachel Barnes NP, 75 mcg at 06/17/24 0630 magnesium oxide (MAG-OX) tablet 400 mg, 400 mg, oral, Daily, Seth Flores MD, 400 mg at 06/17/24 0810 multivit tczaqpca-povw-OT-calcium (THERA-M) tablet 1 tablet, 1 tablet, oral, Daily, Rachel Barnes NP, 1 tablet at 06/17/24 0810 nortriptyline (PAMELOR) capsule 10 mg, 10 mg, oral, Daily, Rachel Barnes NP, 10 mg at 06/17/24 08 OLANZapine (ZyPREXA) 5 mg in sterile water 1 mL (5 mg/mL) syringe, 5 mg, intramuscular, Q6H PRN, Mell Curran MD pantoprazole DR (PROTONIX) extended release tablet 40 mg, 40 mg, oral, Daily, Rachel Barnes NP, 40 mg at 06/17/24 0812 potassium chloride ER (KLOR-CON) extended release tablet 40 mEq, 40 mEq, oral, Daily, Coleen Samuels MD, 40 mEq at 06/17/24 0808 rivaroxaban (XARELTO) tablet 20 mg, 20 mg, oral, Daily with dinner, Rachel Barnes NP, 20 mgat 06/17/24 170 sacubitriL-valsartan (ENTRESTO) 24-26 mg tablet 1 tablet, 1 tablet, oral, BID, Rachel Barnes NP, 1 tablet at 06/17/24 0813 Lab/Radiology/Diagnostic Review: Recent Results (from the past 24 hour(s)) POCT glucose Collection Time: 06/16/24 8:02 PM Result Value Ref Range Glucose, POC 289 (H) 70 - 199 mg/dL Magnesium Collection Time: 06/17/24 12:15 AM Result Value Ref Range Magnesium 2.0 1.4 - 2.5 mg/dL Renal function panel Collection Time: 06/17/24 12:15 AM Result Value Ref Range Sodium 136 135 - 145 mmol/L Potassium, pl 4.5 3.3 - 4.9 mmol/L Chloride 101 97 - 110 mmol/L CO2 26 22 - 32 mmol/L Anion gap 9 2 - 15 mmol/L BUN 18 6 - 25 mg/dL Creatinine 0.70 0.60 - 1.10 mg/dL Glucose 215 (H) 70 - 199 mg/dL Calcium 9.2 8.5 - 10.3 mg/dL Phosphorus, pl 3.0 2.3 - 4.5 mg/dL Albumin 3.3 (L) 3.5 - 5.0 g/dL eGFR Collection Time: 06/17/24 12:15 AM Result Value Ref Range eGFR >90 >=60 mL/min/1.73 m2 POCT glucose Collection Time: 06/17/24 2:19 AM Result Value Ref Range Glucose, POC 195 70 - 199 mg/dL POCT glucose Collection Time: 06/17/24 6:45 AM Result Value Ref Range Glucose, POC 167 70 - 199 mg/dL POCT glucose Collection Time: 06/17/24 11:38 AM Result Value Ref Range Glucose, POC 220 (H) 70 - 199 mg/dL POCT glucose Collection Time: 06/17/24 4:37 PM Result Value Ref Range Glucose, POC 146 70 - 199 mg/dL Recent Labs Lab Units 06/14/24 1415 06/12/24 0646 CLARITY U Clear Clear COLOR U Yellow Yellow KETONES UR Negative Negative NITRITE UR Negative Negative SPEC GRAV U 1.019 1.026 UROBILINOGEN UR mg/dL <2.0 <2.0 WBC UR QT /HPF -- 0-5 CTA Upper Extremity Right W WO Contrast Result Date: 06/07/2024 Narrative: EXAMINATION: CTA UPPER EXTREMITY RIGHT W WO CONTRAST HISTORY: Right upper arm swelling ORDER DATE: 06/06/2024 10:40 PM TECHNIQUE: Imaging protocol: Computed tomographic angiography of the right upper extremity with contrast, including non-contrast images if performed. 3D rendering (Not supervised by radiologist): MIP and/or 3D reconstructed images were created by the technologist. Contrast material: OPTIRAY 350; Contrast volume: 119 ml IV COMPARISON: CT CHEST PE (CTA) W CONTRAST 05/30/2024 FINDINGS: Tubes, catheters and devices: There is a PICC line inserted through the right basilicvein at the level of the distal arm. There is mild fat stranding within the anterior distal arm, without sizable hematoma or drainable fluid collection. No evidence of active extravasation. Pulmonaryarteries: There is a partially visualized curvilinear metallic structure within the right pulmonaryartery, similar to prior. Right subclavian artery: No acute findings. No occlusion or significant stenosis. Axillary artery: No acute findings. No occlusion or significant stenosis. Brachial artery: No acute findings. No occlusion or significant stenosis. Radial artery: No acute findings. No occlusion or significant stenosis. Ulnar artery: No acute findings. No occlusion or significant stenosis. Veins: Peripheral intravenous access is seen within the cephalic vein at the level of the antecubital fossa. Impression: 1. Patent arterial system of the right upper extremity as detailed above. 2. No evidence of hematoma or drainable fluid collection Stat report by [facility] Electronically signed by: Andrea Abernathy M.D. ECG 12 lead Result Date: 06/06/2024 Narrative: Vent Rate: 78 bpm RR Interval: 763 msec [place] Interval: 0 msec QRS Duration: 154 msec QT Interval: 473 msec QTC Interval: 506 msec P-R-T [place]: 0 - 23 - 94 degrees IMPRESSION: ATRIAL FIBRILLATION Occasional ventricular pacing INDETERMINATE AXIS Left bundle branch block ABNORMAL ECG Electronically Signed By: Dr. Shiloh Muhammad [facility] US Vein Duplex Upper Extremity Right Limited, Unilateral Result Date: 06/06/2024 Narrative: EXAMINATION: US VEIN DUPLEX UPPER EXTREMITY RIGHT LIMITED, UNILATERAL HISTORY: The patient is a 63-year-old female who presents with swelling in the right upper extremity. TECHNIQUE: Rightupper extremity venous duplex study was performed with hahn scale imaging, color Doppler imaging and spectral waveform analysis. FINDINGS: There is normal compressibility and phasicity in both internal jugular and subclavian veins as well as the right axillary, brachial, radial, ulnar, cephalic andbasilic veins. Imaging of these veins reveals no thrombus within the lumen. Impression: There is no evidence of acute DVT in the right upper extremity. Electronically signed by: Conrad Davila M.D. XR Chest Pa Lateral 2 Views Result Date: 06/06/2024 Narrative: EXAMINATION: XR CHEST PA LATERAL 2 VIEWS HISTORY: The patient is a 63-year-old female who has had placement of a PICC line. Comparison made with the previous study dated 12/26/2020. TECHNIQUE: AP and lateral view of the chest. FINDINGS: The distal tip of the right PICC line is in the distal superior vena cava. Cardiomegaly with aortic atherosclerosis. No failure. No active infiltrate. Impression: No failure. Electronically signed by: Conrad Davila M.D. IR PICC Line Placement Over 5 Years of Age Result Date: 06/05/2024 Narrative: EXAMINATION: IR PICC LINE PLACEMENT OVER 5 YEARS OF AGE DATE: 06/05/2024 2:05 PM HISTORY:sepsis Unsuccessful attempt at bedside PICC line placement by in-house vascular team. TECHNIQUE: The risks, benefits, and alternatives were discussed and informed consent was obtained. Prior to begin lisa the procedure, universal protocol was performed to confirm the patient's identity and the planned procedure. Maximum sterile barriers including cap, mask, hand hygiene, sterile gloves, sterile gown, large sterile drape, sterile gel, sterile ultrasound probe cover, and 2% chlorhexidine for cutaneous antisepsis were used. The skin over the right basilic vein was sterilely prepped, draped, and infiltrated with lidocaine. Prior to the procedure, this target vessel was evaluated by ultrasound and an image of the patent vessel demonstrating vessel patency was recorded in the patient's electronic medical record. This vessel was then accessed using real-time ultrasound guidance. A guidewire was passed centrally using fluoroscopic guidance. The intravascular length from the access site to theright atrium was assessed. After dilating the tract, a 45 cm, 5-[place] dual-lumen PICC was insertedthrough the peel-away sheath. The peel-away sheath was then removed. The catheter was flushed and se cured in place. A sterile dressing was applied. The final fluoroscopic image demonstrates the catheter with its tip at the cavoatrial junction. No complications were identified. The catheter is readyfor immediate use. When treatment is completed, this catheter can be removed at the bedside according to standard hospital protocol. Impression: Successful PICC placement using ultrasound guidance. Electronically signed by: Blaine Nash M.D. XR Chest 1 View Result Date: 06/05/2024 Narrative: EXAMINATION: XR CHEST 1 VIEW HISTORY: The patient is a 63-year-old female who has had anattempted PICC line placement. Comparison made with the previous study dated 05/29/2024. TECHNIQUE:AP portable view of the chest. FINDINGS: Cardiomegaly with aortic atherosclerosis. No failure. No active infiltrate. Impression: Cardiomegaly. Electronically signed by: Conrad Davila M.D. ECG 12 lead Result Date: 06/02/2024 Narrative: Vent Rate: 86 bpm RR Interval: 697 msec [place] Interval: 0 msec QRS Duration: 157 msec QT Interval: 470 msec QTC Interval: 513 msec P-R-T [place]: 0 - 38 - 88 degrees IMPRESSION: ATRIAL FIBRILLATION WITH ABERRANT CONDUCTION OR VENTRICULAR PREMATURE COMPLEXES LEFT BUNDLE BRANCH BLOCK [120+ ms QRS DURATION, 80+ ms Q/S IN V1/V2, 85+ ms R IN I/aVL/V5/V6] ABNORMAL ECG Compared to prior EKG, ventricular pacing is no longer present Electronically Signed By: Antonio Carlos MD ECG 12 lead Result Date: 06/02/2024 Narrative: Vent Rate: 76 bpm RR Interval: 782 msec OH Interval: 0 msec QRS Duration: 158 msec QT Interval: 494 msec QTC Interval: 525 msec P-R-T [place]: 0 - 116 - 120 degrees IMPRESSION: ATRIAL FIBRILLATION WITH demand ventricular pacemaker MARKED RIGHT AXIS DEVIATION [QRS AXIS > 100] INTRAVENTRICULAR CONDUCTION DELAY [130+ ms QRS DURATION] ABNORMAL ECG Compared to prior EKG, demand ventricular pacing is new Electronically Signed By: Antonio Carlos MD CT Abdomen Pelvis W Contrast Result Date: 06/01/2024 Narrative: EXAMINATION: CT ABDOMEN PELVIS W CONTRAST DATE: 06/01/2024 1:05 PM HISTORY: Sepsis. COMPARISON: 02/28/2017. TECHNIQUE: Transaxial computed tomographic images of the abdomen and pelvis were obtained after the administration of 119 mL of Optiray 350 intravenously. Multiplanar coronal and sagittal images were reformatted. FINDINGS: Similar scarring in the left lung base unchanged since 2017. There is cardiomegaly and mosaic attenuation in the lung bases suggestive of pulmonary edema. There is a small hiatal hernia. Cholecystectomy. Diffuse hepatic steatosis. The spleen, pancreas, and adrenal glands are unremarkable. Kidneys are unremarkable. No hydroureteronephrosis. Unopacified bladder is unremarkable. Uterus and adnexal structures are unremarkable. No free fluid in the pelvis. There is diverticulosis. No evidence of diverticulitis. The small bowel is unremarkable. Mild atherosclerotic calcifications in the aorta and branch vessels. Subcutaneous tissues are unremarkable. No pathologic by size criteria lymphadenopathy. Mild bilateral sacroiliac joint arthrosis. No acute fracture. No pathologic by size criteria lymphadenopathy. Impression: 1. Mosaic attenuation in the lung bases suggestive of interstitial pulmonary edema. 2. Diffuse hepatic steatosis. 3. Small hiatal hernia. 4. Trace left pleural effusion. 5. Additional chronic or incidental findings as above. Electronically signed by: Azeem Robins II, D.O. ECG 12 lead Result Date: 06/01/2024 Narrative: Vent Rate: 102 bpm RR Interval: 584 msec OH Interval: 0 msec QRS Duration: 149 msec QT Interval: 387 msec QTC Interval: 446 msec P-R-T [place]: 0 - 115 - 66 degrees IMPRESSION: ATRIAL FIBRILLATION WITH RAPID VENTRICULAR RESPONSE WITH ABERRANT CONDUCTION OR VENTRICULAR PREMATURE COMPLEXES INDETERMINATE AXIS INTRAVENTRICULAR CONDUCTION DELAY [130+ ms QRS DURATION] ABNORMAL ECG NO CHANGE FROM PREVIOUS TRACING NOTED Electronically Signed By: Antonio Carlos MD ECG 12 lead Result Date: 06/01/2024 Narrative: Vent Rate: 83 bpm RR Interval: 716 msec OH Interval: 0 msec QRS Duration: 154 msec QT Interval: 409 msec QTC Interval: 449 msec P-R-T [place]: 0 - 123 - 189 degrees IMPRESSION: ATRIAL FIBRILLATION INTRAVENTRICULAR CONDUCTION DELAY LATERAL MYOCARDIAL INFARCTION , OF INDETERMINATE AGE Electronically Signed By: Cristino Kingsley MD, [facility] ECG 12 lead Result Date: 05/31/2024 Narrative: Vent Rate: 74 bpm RR Interval: 810 msec OH Interval: 0 msec QRS Duration: 151 msec QT Interval: 449 msec QTC Interval: 476 msec P-R-T [place]: 0 - 102 - 146 degrees IMPRESSION: VENTRICULAR PACED RHYTHM Electronically Signed By: Cristino Kingsley MD, [facility] ECG 12 lead Result Date: 05/31/2024 Narrative: Vent Rate: 76 bpm RR Interval: 785 msec OH Interval: 0 msec QRS Duration: 150 msec QT Interval: 471 msec QTC Interval: 501 msec P-R-T [place]: 0 - 80 - 97 degrees IMPRESSION: ATRIAL FIBRILLATION WITH ABERRANT CONDUCTION OR VENTRICULAR PREMATURE COMPLEXES INTRAVENTRICULAR CONDUCTION DELAY [130+ ms QRS DURATION] ABNORMAL ECG Electronically Signed By: Dr. Shiloh Muhammad [facility] ECG 12 lead Result Date: 05/30/2024 Narrative: Vent Rate: 109 bpm RR Interval: 548 msec OH Interval: 0 msec QRS Duration: 149 msec QT Interval: 398 msec QTC Interval: 462 msec P-R-T [place]: 0 - 96 - 89 degrees IMPRESSION: ATRIAL FIBRILLATION WITH RAPID VENTRICULAR RESPONSE BORDERLINE RIGHT AXIS DEVIATION [QRS AXIS > 90] INTRAVENTRICULAR CONDUCTION DELAY [130+ ms QRS DURATION] ABNORMAL ECG Unchanged compared to an EKG done earlier on May 30, 2024 Electronically Signed By: Dr. Shiloh Muhammad [facility] CT Chest WO Contrast Result Date: 05/30/2024 Narrative: EXAMINATION: Computed tomography of the chest without intravenous contrast HISTORY: Right lower lobe pulmonary artery for and body TECHNIQUE: Transaxial computed tomographic images of the chest were obtained without intravenous contrast according to the standard protocol. COMPARISON: 05/30/[address] angiography. FINDINGS: Bilateral small pleural effusions and atelectasis. There is trace pulmonary edema. Heart is enlarged. Small volume pericardial effusion. Pacemaker defibrillator leads terminate in the right atrium and right ventricle. There left hilar calcified granulomas. There is a curvilinear density originating in the right lower lobe pulmonary artery and extending distally into a lateral basilar subsegmental branch vessel. Visualized portions of the upper abdomen demonstrate changes of cholecystectomy. No suspicious osseous lesions. Impression: 1. Redemonstrated curvilinear radiopaque density extending from the proximal right lower lobe pulmonary artery into a subsegmental lateral basilar branch favors a catheter or wire fragment. 2. Findings most suggestive of heart failure with cardiomegaly, small volume pericardial effusion, and small bilateral pleural effusions and mild pulmonary edema. Electronically signed by: Abilio Post M.D. Transthoracic Echo (TTE) Complete W Doppler/CF Result Date: 05/30/2024 Narrative: [place] [address] Echocardiogram Report Patient Name: LEI RODRIGUEZ V : 1960 Study Date: 05/30/2024 7:47:08 AM Gender: F Tech: GUILHERME Location: [id number] Ref Provider: TY MCFARLAND Height(Cm): 165 BSA: 2.43 Weight(Kg): 128.7 Heart Rate: 94 BP: 135/84 Quality:Good Order Provider: TY MCFARLAND PROCEDURES: Echocardiographic Report: Transthoracic echocardiogram with complete [...] ] m/s LA Volume Index 22.99 [ 16.00- 34.00 ] cc/m2 MV A Peak Chadd [...] fraction is measured at 30 %. Left Atrium:The left atrium is normal in size. Right [...] peak RVSP is 42 mmHg. Mild to mo derate tricuspid regurgitation. Pericardium: Trivial pericardial effusion. Aorta: [...] wall thickness. Paradoxical septal motion consistent with IVCDor bundle branch block. Ejection fraction is measured at 30 %. Normal right ventricular systolic fun ction. Pacemaker noted. Normal structure of the mitral valve. Mild to moderate mitral valve regurgitation. The regurgitation jet is eccentrically directed which may underestimate the severity of mitral regurgitation. Tricuspid valve not well visualized. Estimated peak RVSP is 42 mmHg. Mild to moderate tricuspid regurgitation. Trivial pericardial effusion. Electronically Signed By: Coleen Cortez DO, [facility]arl[facility], ANDREE, MELISSA 2024-05-30 09:18:05 CDT CC: CC: CC: XR Chest 1 View Result Date: 05/30/2024 Narrative: EXAMINATION: XR CHEST 1 VIEW History: Shortness of breath Impression: Single view chest exam similar for interpretation with comparison to prior from 03/07/2017. Correlation made with CT from the same day There are diffuse interstitial and airspace opacitiescompatible with moderate pulmonary edema. Likely small effusions. Heart is enlarged. There is a curvilinear density projecting over the right lower lung which corresponds to a catheter or wire in theright lower lobe pulmonary arteries when correlated with the CT examination. This finding is not present on the prior 2016 examination. The presence of this finding was discussed by Dr. Abernathy with Dr. Hollis and documented by Dr. Hollis in the medical record on 05/30/2024 at 457. Electronically signed by: Abilio Post M.D. ECG 12 lead Result Date: 05/30/2024 Narrative: Vent Rate: 86 bpm RR Interval: 697 msec [place] Interval: 0 msec QRS Duration: 145 msec QT Interval: 438 msec QTC Interval: 481 msec P-R-T [place]: 0 - 101 - 95 degrees IMPRESSION: ATRIAL FIBRILLATION RIGHT AXIS DEVIATION [QRS AXIS > 100] INTRAVENTRICULAR CONDUCTION DELAY [130+ ms QRS DURATION] ABNORMAL ECG Unchanged compared to 05/29/2021 Electronically Signed By: Dr. Shiloh Muhammad [facility] CT Chest PE (CTA) W Contrast Result Date: 05/30/2024 Narrative: EXAMINATION: CT CHEST PE (CTA) W CONTRAST HISTORY: Chest pain ORDER DATE: 05/30/2024 3:20AM TECHNIQUE: CT chest images were acquired using a chest angiographic protocol with 3-D imaging optimized for PE is obtained [id number] mL of Optiray 350 IV. 2D Coronal and sagittal reformats were obtained. 3-D rendering (not supervised by radiologist) MIP and/or 3-D reconstructed images were created by the technologist. FINDINGS: Dual lead pacer device implanted in the left chest wall with leads in the right atrium and right ventricle. Pulmonary arteries: Dilated main pulmonary artery measuring 4.9 cm. Some of the segmental branches are not well assessed for exclusion of subtle emboli due to excessive motion. Otherwise centrally no pulmonary artery emboli. A dislodged catheter is visualized in the distal right pulmonary artery extending into the lobar and segmental right lower lobe pulmonary artery branch, image [id number] 134/coronal series 9. Aorta: Unremarkable. No aortic aneurysm. No aortic dissection. Lungs: Diffuse multilobar septal thickening, peribronchial thickening and increasedground-glass alveolar airspace opacity of the lung parenchyma representing findings of pulmonary interstitial edema. Pleural spaces: Mild left and trace to mild right pleural effusions. Heart: Four-chamber enlarged heart. Reflux of contrast within the hepatic veins and IVC may suggest right heart failure. Trace to mild pericardial effusion present. Lymph nodes: Multiple calcified mediastinal and hilar lymph nodes which suggest prior exposure to granulomatous disease. No lymphadenopathy. Diaphragm: There is a small hiatal hernia. Liver: Coarsened nodular hepatic parenchyma may suggest underlying chronic hepatocellular disease. Liver is prominent in size measuring 17.5 cm. Gallbladder and biliary ducts: Cholecystectomy. Bones/joints: No acute fracture. Soft tissues: Unremarkable. Impression: 1. Motion degraded evaluation of the pulmonary arteries. Some of the segmental branchesare not well assessed for exclusion of subtle emboli. Otherwise centrally no pulmonary artery emboli. 2. Pulmonary arterial hypertension and dislodged the catheter visualized in the distal right pulmonary artery and right lower lobe lobar and segmental pulmonary artery branch. 3. CHF, pulmonary edema and small bilateral pleural effusions. 4. Possible congestive cirrhosis. Correlate with LFTs. 5. Additional findings as described above. Stat report by [facility] . Electronically signed by: Andrea Abernathy M.D. CT Cervical Spine WO Contrast Result Date: 05/30/2024 Narrative: EXAMINATION: CT CERVICAL SPINE WO CONTRAST HISTORY: Neck pain ORDER DATE: 05/29/2024 10:55 PM TECHNIQUE: Multiple helical axial images of the cervical spine were obtained without the administration of contrast. Coronal and sagittal reformatted images were included. FINDINGS: Bones: No acute fracture. Chronic mild C6 loss of vertebral body height present. Normal alignment. Mild right C3-C4 facet arthrosis. C3-C4 disc narrowing and partially calcified bulging disc contributing to [id number] central spinal stenosis. Disc osteophyte complex also contributing to kyrq-[id number] central spinal stenosis at C4-C5 level. No significant disc bulge or herniation. No severe spinal canal stenosis. Uncovertebral joint hypertrophy contributing to multilevel bilateral neural foraminal stenosis. Lungs: Lung apices are normal. Soft tissues: Unremarkable. Impression: No acute cervical spine injury. Stat report by [facility] Stat report by [facility] Electronically signed by: Andrea Abernathy M.D. CT Head WO Contrast Result Date: 05/30/2024 Narrative: EXAMINATION: CT head without contrast HISTORY: Headache, new or worsening (Age >= 50y) TECHNIQUE: Noncontrast CT of the brain was performed with images acquired from skull base to vertex. COMPARISON: None available. FINDINGS: Brain: Global volume loss and cortical dilatation present. No hemorrhage. Mild chronic microvascular ischemic changes of the periventricular white matter. No mass effect. No edema. Cerebral ventricles: No ventriculomegaly. Paranasal sinuses: Visualized sinuses are unremarkable. No fluid levels. Mastoid air cells: Visualized mastoid air cells are well aerated. Bones: Unremarkable. No acute fracture. Soft tissues: Unremarkable. Impression: No acute intracranial findings. Stat report by [facility] Electronically signed by: Andrea Abernathy M.D. ECG 12 lead Result Date: 05/30/2024 Narrative: Vent Rate: 93 bpm RR Interval: 645 msec [place] Interval: 0 msec QRS Duration: 97 msec QT Interval: 197 msec QTC Interval: 247 msec P-R-T [place]: 0 - 118 - 0 degrees IMPRESSION: ATRIAL FIBRILLATION WITH ABERRANT CONDUCTION OR VENTRICULAR PREMATURE COMPLEXES LOW QRS VOLTAGE [QRS DEFLECTION < 0.5/1.0 mV IN LIMB/CHEST LEADS] SEPTAL MYOCARDIAL INFARCTION , PROBABLY OLD [40+ ms Q WAVE IN V1/V2]Nonspecific IVCD LATERAL MYOCARDIAL INFARCTION , OF INDETERMINATE AGE [40+ ms Q WAVE AND/OR ST/T ABNORMALITY IN I/aVL/V5/V6] ABNORMAL ECG Electronically Signed By: Antonio Carlos MD ASSESSMENT/PLAN Controlled type 2 diabetes mellitus with chronic kidney disease, with long-term current use of insulin (HCC) Hypothyroidism Hypotension due to drugs Chronic diastolic congestive heart failure (CMS/HCC) (HCC) Endocarditis Urinary frequency Gastroesophageal reflux disease without esophagitis Paroxysmal atrial fibrillation (CMS/HCC) (HCC) Major depressive disorder CKD (chronic kidney disease) CKD ? Hypokalemia/hypomag. Recent endocarditis. Recurrent ICD firing. A fib. DM/HTN. Hx of CHF. Hypothyroidism. PLAN Renal fn is stable, ckd/gerald ocasio not indicated. Hold lasix, keep K over 4, Mg over 2. Cards ocasio, ICD interrogation, Hold Tikosyn/BB. Daily RFP. Will d/w cardiology Repeat CHANCE. 06/12, d/w cards, monitor k, mg and cr, recs as above, monitor microscopic hematuria, start mgo and kcl. 06/13, K and mg acceptable, rpt ua, continue K and mg at current dose. 06/14, k and mg stable, stable renal fn/lytes, continue daily RFP and mag. 06/15, same management, no changes. -06/16, k, mg stable, no reported cardiac rhythm issues, will follow. -06/17, BP low, k, mg, lytes stable, iv abx. I can be reached at [phone] with any concerns. Thank you Mell Curran MD for the consult. Seth Flores MD [employer] [phone] * Eben Pettit MD - 06/17/2024 12:45 PM CDT Infectious Disease Consult Consulting Physician: Eben Pettit MD. Reason for consult: Ongoing IV antibiotic therapy new admission for syncope Interval history/review of systems Sitting up in bed still confused Afebrile currently Sitter in room Objective: Vitals: 24hr Min/Max: Temp Min: 36.4 ??C (97.5 ??F) Max: 36.8 ??C (98.2 ??F) Pulse Min: 78 Max: 108 BP Min: 91/41 Max: 127/76 Resp Min: 16 Max: 20 SpO2 Min: 92 % Max: 97 % Most Recent : Vitals: 06/17/24 0400 06/17/24 0439 06/17/24 0811 06/17/24 1147 BP: 100/51 102/64 (!) 91/41 BP Location: Left arm Left arm Left arm Patient Position: Lying Lying Sitting Pulse: 89 93 108 85 Resp: 18 20 Temp: 36.6 ??C (97.9 ??F) 36.7 ??C (98.1 ??F) 36.8 ??C (98.2 ??F) TempSrc: Oral Oral Oral SpO2: 92% 95% 96% Weight: Height: Physical Exam: General appearance: alert, cooperative, no distress HEENT: (-)icterus, Oropharnyx is normal, forehead with stitches, site is clean Neck: No palpable LN Lungs: breath sounds normal and symmetric; minimal respiratory effort, no r/w/c Heart: normal S1 and S2, no m/r/g Abdomen: soft without mass, non-tender, +bowel sounds, no HSM Extremities/Skin: no gross deformities, FROM, no new rashes, no ulcerations Vascular: no Edema, pulses present bilaterally Neuro: No focal deficits Psych: Appropriate mood and affect Double-lumen PICC line right upper extremity placed 06/05, site is clean Labs Reviewed. Recent Labs Lab Units 06/11/24 0107 WBC K/cumm 6.0 6.3 HEMOGLOBIN g/dL 11.5* 11.6* HEMATOCRIT % 35.8 35.8 PLATELETS K/cumm 314 286 Recent Labs Lab Units 06/17/24 0015 06/16/24 0241 06/15/24 0609 BUN SERUM mg/dL 18 15 16 CREATININE mg/dL 0.70 0.70 0.72 Lab Results Component Value Date ALT 5 (L) 06/08/2024 AST 21 06/08/2024 ALKPHOS 217 (H) 06/08/2024 BILITOT 0.5 06/08/2024 Cultures Blood culture 06/13 no growth so far Urinalysis with no significant signs of infection on 06/12 Imaging CTA right upper extremity with no evidence of hematoma or drainable fluid collection. Patent arterial system. No evidence of DVT Assessment: MSSA bacteremia Called microlab during last admission, [facility] blood cultures 05/25 NG. blood cultures were positive for Staph aureus 05/21 and 05/22 Documented at outside hospital, unknown date so far will follow-up with [facility]. 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 Discussed case with Dr. Neli Hutchinson during last admission She underwent CHANCE, with no visible valve vegetation. Repeat blood cultures 05/30 no growth She has AICD in place. There was a clot in MAULIK, probably an appendage clot, hence synchronized Cardioversion was canceled on last admission. Electrophysiology/Cardiology team was following and there was plan for Bi V ICD after completing antibiotic course. Blood cultures were negative at outside hospital from 05/25, blood cultures negative at this facility from 05/30 CT abdomen and pelvis 06/01 With no significant infectious findings Nausea vomiting/syncope due to VF/fall Cardiology is following Dislodged catheter/lead.. PA Atrial fibrillation CHF GERD Hypertension Obstructive sleep apnea Thyroid disease Intellectual disability Plan: Continue on Ancef to complete therapy till 06/22, due to presence of AICD. blood cultures from 05/30 no growth. New blood cultures were ordered due to fever 06/13 . Afebrile now Urinalysis from 06/12 with no signs of infection IR guided PICC line placement on 06/05. Right upper extremity, Dopplers with no DVT, CTA with no hematoma/fluid collection. chest x-ray 06/14 no new infiltrate Urine 06/14 no signs of infection Follow-up on blood cultures from 06/13, no growth so far Will follow. Eben Pettit MD 06/17/2024 [facility] Office: [phone] Fax: [phone] Voice recognition software was used to complete this document, therefore, hand spray operator variances may occur. * Josué Ibarra DO - 06/17/2024 9:50 AM CDT Cardiology Progress Note - [facility] SUBJECTIVE: Feels well Current Medications: Scheduled Meds:carvediloL, 25 mg, oral, BID with meals (bkfst, dinner) ceFAZolin, 2 g, intravenous, Q8H GALINA cholecalciferol, 5,000 Units, oral, Daily docusate sodium, 100 mg, oral, BID escitalopram, 5 mg, oral, Daily ferrous sulfate, 65 mg of elemental iron, oral, Daily with breakfast insulin glargine, 0.15 Units/kg, subcutaneous, Nightly insulin lispro, 0-4 Units, subcutaneous, Nightly insulin lispro, 0-5 Units, subcutaneous, TID with meals insulin lispro, 0.05 Units/kg, subcutaneous, TID with meals levothyroxine, 75 mcg, oral, QAM magnesium oxide, 400 mg, oral, Daily multivit svuooqsa-qnlo-WG-calcium, 1 tablet, oral, Daily nortriptyline, 10 mg, oral, Daily pantoprazole DR, 40 mg, oral, Daily potassium chloride ER, 40 mEq, oral, Daily rivaroxaban, 20 mg, oral, Daily with dinner sacubitriL-valsartan, 1 tablet, oral, BID Continuous Infusions: PRN Meds:. acetaminophen albuterol HFA dextrose OR dextrose fluticasone propionate glucagon OLANZapine Physical Examination: Vitals: 06/17/24 0037 06/17/24 0400 06/17/24 0439 06/17/24 0811 BP: 102/56 100/51 102/64 BP Location: Left arm Left arm Left arm Patient Position: Lying Lying Lying Pulse: 78 89 93 108 Resp: 18 Temp: 36.7 ??C (98.1 ??F) 36.6 ??C (97.9 ??F) 36.7 ??C (98.1 ??F) TempSrc: Oral Oral Oral SpO2: 96% 92% 95% Weight: Height: Review of LABS: Recent Labs Lab Units 06/11/24 0107 WBC K/cumm 6.0 6.3 HEMOGLOBIN g/dL 11.5* 11.6* HEMATOCRIT % 35.8 35.8 PLATELETS K/cumm 314 286 Recent Labs Lab Units 06/17/24 0645 06/17/24 0219 06/17/24 0015 SODIUM mmol/L -- -- 136 POTASSIUM PLASMA mmol/L -- -- 4.5 CHLORIDE mmol/L -- -- 101 CO2 mmol/L -- -- 26 ANIONGAP mmol/L -- -- 9 BUN SERUM mg/dL -- -- 18 CREATININE mg/dL -- -- 0.70 GLUCOSE mg/dL -- -- 215* POC GLUCOSE MONITOR mg/dL 167 < > -- CALCIUM mg/dL -- -- 9.2 < > = values in this interval not displayed. Lab Results Component Value Date HGBA1C 10.4 (H) 02/12/2017 Lab Results Component Value Date INR 1.91 (H) 06/05/2024 INR 1.42 (H) 05/29/2024 INR 1.56 (H) 03/03/2017 No results found for: TSH Exam General: Comfortable Lungs: symmetric, unlabored, clear to auscultation bilaterally Heart: S1,S2, regular rate & rhythm, no murmurs, rubs, or gallops Abdomen: soft, non-tender, non-distended, bowel sounds present Extremities: no LE edema, palpable peripheral pulses BL Neurologic: No focal deficits ASSESSMENT/PLAN: Episode of syncope -secondary to VF -no further arrhythmias on telemetry -troponins are normal -CT head unremarkable -chest x-ray cardiomegaly -tikosyn discontinue with concerns for QTC prolongation -no arrhythmias on tele monitor -no further syncopal episode V-fib. -5 episodes of VFib with appropriate ICD firing. -K 3.2 on admission and today it is 4.5 - previous [facility] that was negative for CAD. Given normal troponin no need for IP cath. Questionable endocarditis. -no vegetations seen on CHANCE last admission. - ID following Persistent Atrial fibrillation. - CHANCE 05/31/24 that showed left atrial appendage clot therefore no CV -On xarelto for AC. -Check TSH and replete lytes. -Tikosyn and calcium channel blockers been discontinued. Dislodged catheter. in pulmonary artery noted on CT chest and CHANCE last admission. Chronic systolic congestive heart failure. -Clinically compensated at this time. -EF 30% by echo last admit. Continue BB and Entresto. -diuretics on home. Diabetes type 2 -per hospitalist Clinically stable Continue with present management supportive care dispo to snf Outpt fu with ep dr renetta Ibarra DO, [facility] 06/17/2024 9:50 AM * Mell Curran MD - 06/17/2024 9:16 AM CDT DAILY PROGRESS NOTE C/C:Fall and passed out Interval History: No new events Consults: Ty Mcfarland MD Singh, Inderjit, MD SUBJECTIVE: Complaints: I want to run away, not feeling good. ROS: Denies any pain or SOB OBJECTIVE: Vitals: Temp (24hrs), Av.6 ??C (97.9 ??F), Min:36.4 ??C (97.5 ??F), Max:36.8 ??C (98.2 ??F) Vitals: 06/17/24 0037 06/17/24 0400 06/17/24 0439 06/17/24 0811 BP: 102/56 100/51 102/64 BP Location: Left arm Left arm Left arm Patient Position: Lying Lying Lying Pulse: 78 89 93 108 Resp: 18 Temp: 36.7 ??C (98.1 ??F) 36.6 ??C (97.9 ??F) 36.7 ??C (98.1 ??F) TempSrc: Oral Oral Oral SpO2: 96% 92% 95% Weight: Height: LDA: PICC Double Lumen 06/05/24 Non-tunneled Power #1 Red, #2 Purple, Right Basilic;Upper arm (Active) Placement Date/Time: 06/05/24 1505 Catheter Time Out Checklist Completed: Yes Hand Hygiene Performed: Yes Site Prep: Chlorhexidine Site Prep Agent has Completely Dried Before Insertion: Yes All 5 Sterile Barriers or Appropriate Barriers Used (Gl... Number of days: 7 I/O: No intake or output data in the 24 hours ending 06/17/24 0916 Physical Exam General: Up on bed, awake,alert,on RA, NAD,tearful SHEENT:Skin warm,dry,no rashes. No icterus,no cyanosis,no pallor,EOMI. Neck:Supple Respi:Slightly diminished breath sounds tamica Cardio:RRR,no murmur GI:Abdomen obese,soft,bowel sounds +,non tender,not distended. Extre:No edema,no cyanosis,no pallor Neuro:Awake,alert,answering questions appropriately.Following commands Psych:No agitation. Tearful Laboratory: Recent Results (from the past 24 hour(s)) POCT glucose Collection Time: 06/16/24 11:59 AM Result Value Ref Range Glucose, POC 223 (H) 70 - 199 mg/dL POCT glucose Collection Time: 06/16/24 4:04 PM Result Value Ref Range Glucose, POC 216 (H) 70 - 199 mg/dL POCT glucose Collection Time: 06/16/24 8:02 PM Result Value Ref Range Glucose, POC 289 (H) 70 - 199 mg/dL Magnesium Collection Time: 06/17/24 12:15 AM Result Value Ref Range Magnesium 2.0 1.4 - 2.5 mg/dL Renal function panel Collection Time: 06/17/24 12:15 AM Result Value Ref Range Sodium 136 135 - 145 mmol/L Potassium, pl 4.5 3.3 - 4.9 mmol/L Chloride 101 97 - 110 mmol/L CO2 26 22 - 32 mmol/L Anion gap 9 2 - 15 mmol/L BUN 18 6 - 25 mg/dL Creatinine 0.70 0.60 - 1.10 mg/dL Glucose 215 (H) 70 - 199 mg/dL Calcium 9.2 8.5 - 10.3 mg/dL Phosphorus, pl 3.0 2.3 - 4.5 mg/dL Albumin 3.3 (L) 3.5 - 5.0 g/dL eGFR Collection Time: 06/17/24 12:15 AM Result Value Ref Range eGFR >90 >=60 mL/min/1.73 m2 POCT glucose Collection Time: 06/17/24 2:19 AM Result Value Ref Range Glucose, POC 195 70 - 199 mg/dL POCT glucose Collection Time: 06/17/24 6:45 AM Result Value Ref Range Glucose, POC 167 70 - 199 mg/dL Radiology: Scheduled Medications: carvediloL, 25 mg, oral, BID with meals (bkfst, dinner) ceFAZolin, 2 g, intravenous, Q8H GALINA cholecalciferol, 5,000 Units, oral, Daily docusate sodium, 100 mg, oral, BID escitalopram, 5 mg, oral, Daily ferrous sulfate, 65 mg of elemental iron, oral, Daily with breakfast insulin glargine, 0.15 Units/kg, subcutaneous, Nightly insulin lispro, 0-4 Units, subcutaneous, Nightly insulin lispro, 0-5 Units, subcutaneous, TID with meals insulin lispro, 0.05 Units/kg, subcutaneous, TID with meals levothyroxine, 75 mcg, oral, QAM magnesium oxide, 400 mg, oral, Daily multivit zbmcuyyo-ckjs-TS-calcium, 1 tablet, oral, Daily nortriptyline, 10 mg, oral, Daily pantoprazole DR, 40 mg, oral, Daily potassium chloride ER, 40 mEq, oral, Daily rivaroxaban, 20 mg, oral, Daily with dinner sacubitriL-valsartan, 1 tablet, oral, BID Current Facility-Administered Medications: acetaminophen (TYLENOL) tablet 650 mg, 650 mg, oral, Q4H PRN, Mell Curran MD, 650 mg at 06/16/24 1155 albuterol HFA (PROVENTIL HFA,VENTOLIN HFA,PROAIR HFA) 90 mcg/actuation inhaler 2 puff, 2 puff, inhalation, Q6H PRN (RT), Dilan Palmer MD carvediloL (COREG) tablet 25 mg, 25 mg, oral, BID with meals (bkfst, dinner), Rachel Barnes NP, 25 mg at 06/17/24 0808 ceFAZolin (ANCEF) 2,000 mg/100 mL in dextrose (premix) 2 g, 2 g, intravenous, Q8H GALINA, Rachel Barnes NP, Last Rate: 200 mL/hr at 06/17/24 0812, 2 g at 06/17/24 0812 cholecalciferol (VITAMIN D-3) tablet 5,000 Units, 5,000 Units, oral, Daily, Rachel Barnes NP, 5,000 Units at 06/17/24807 dextrose oral liquid liquid 15 g, 15 g, oral, Q15 Min PRN OR dextrose (D10W) 10% bolus 250 mL, 250 mL, intravenous, Q15 Min PRN, Rachel Barnes NP docusate sodium (COLACE) capsule 100 mg, 100 mg, oral, BID, Rachel Barnes NP, 100 mg at 06/17/24808 escitalopram (LEXAPRO) tablet 5 mg, 5 mg, oral, Daily, Coleen Samuels MD, 5 mg at 06/17/24807 ferrous sulfate delayed release tablet 65 mg of elemental iron, 65 mg of elemental iron, oral, Daily with breakfast, Rachel Barnes NP, 65 mg of elemental iron at 06/17/24807 fluticasone propionate (FLONASE) 50 mcg/actuation nasal spray 1 spray, 1 spray, each nostril, DailyPRN, Rachel Barnes NP glucagon injection 1 mg, 1 mg, intramuscular, Q30 Min PRN, Rachel Barnes NP insulin glargine (LANTUS, SEMGLEE) 100 unit/mL injection 17 Units, 0.15 Units/kg, subcutaneous, Nightly, Rachel Barnes NP, 17 Units at 06/16/242123 insulin lispro (HumaLOG, ADMELOG) 100 unit/mL injection 0-4 Units, 0-4 Units, subcutaneous, Nightly, Rachel Barnes NP, 2 Units at 06/16/242123 insulin lispro (HumaLOG, ADMELOG) 100 unit/mL injection 0-5 Units, 0-5 Units, subcutaneous, TID with meals, Rachel Barnes NP, 1 Units at 06/17/24807 insulin lispro (HumaLOG, ADMELOG) 100 unit/mL injection 6 Units, 0.05 Units/kg, subcutaneous, TID with meals, Rachel Barnes NP, 6 Units at 06/17/24 0807 levothyroxine (SYNTHROID) tablet 75 mcg, 75 mcg, oral, QAM, Rachel Barnes NP, 75 mcg at 06/17/24 0630 magnesium oxide (MAG-OX) tablet 400 mg, 400 mg, oral, Daily, Seth Flores MD, 400 mg at 06/17/24 0810 multivit ptqgmxtg-fqox-JL-calcium (THERA-M) tablet 1 tablet, 1 tablet, oral, Daily, Rachel Barnes NP, 1 tablet at 06/17/24 0810 nortriptyline (PAMELOR) capsule 10 mg, 10 mg, oral, Daily, Rachel Barnes NP, 10 mg at 06/17/24 0812 OLANZapine (ZyPREXA) 5 mg in sterile water 1 mL (5 mg/mL) syringe, 5 mg, intramuscular, Q6H PRN, Mell Curran MD pantoprazole DR (PROTONIX) extended release tablet 40 mg, 40 mg, oral, Daily, Rachel Barnes NP, 40 mg at 06/17/24 0812 potassium chloride ER (KLOR-CON) extended release tablet 40 mEq, 40 mEq, oral, Daily, Coleen Samuels MD, 40 mEq at 06/17/24 0808 rivaroxaban (XARELTO) tablet 20 mg, 20 mg, oral, Daily with dinner, Rachel Barnes NP, 20 mgat 06/16/24 1647 sacubitriL-valsartan (ENTRESTO) 24-26 mg tablet 1 tablet, 1 tablet, oral, BID, Rachel Barnes NP, 1 tablet at 06/17/24 0813 Continuous Medications: PRN Medications: acetaminophen albuterol HFA dextrose OR dextrose fluticasone propionate glucagon OLANZapine Hospital course: 63 y.o. Morbidly obese [place] pt with a PMHx significant for A-fib, CHF, DM II, GERD, HTN, Intellectualdisability, OAB, Sleep apnea, thyroid disease and endocarditis Was brought to ED with chief complaint of fall and passed out ASSESSMENT/PLAN: All diagnoses were present on admission unless otherwise stated. Principal Problem: --Syncope due to Ventricular tachycardia- AICD interrogated at [facility], noted 5 discharges on the report. Troponins trended 0.018, 0.030 ( 0.000-0.034) Patient currently in Sinus rhythm on Telemetry. Cardiology has seen and has stopped several medications including Tikosyn. Decreased Lexapro to 5 mg a day Active problems: --DM II- Accu check ACHS cover with SSI, continue Lantus and basal meal time Humalog BS 160-220 --Chronic Reduced ejection fraction heart failure- cardiomegaly noted on chest x-ray, OSH BNP 1600 (19.9-100) no noted edema continue Lasix 40 mg daily, Coreg 25 mg BID and Entresto 24/ BID, last Echo 05/30/24 EF 30% diastolic dysfunction. --Recent H/O Endocarditis- Continue Ancef 2g every 8 hours for 5 more days --Hypothyroidism- Continue Levothyroxine 75 mcg daily --Urinary frequency-Continue Mirabeqron 25 mg daily --Hypotension- continue midodrine 5 mg TID. Now resolved --GERD-Continue Protonix 40 mg daily --A-fib,S/P PPM- Cardizem has been discontinued . Cardiology is following Continue Xarelto 20 mg daily with dinner --CKD stage II- Stable. consulted Nephrology --Depression- Decreased Lexapro dose to 5 mg due to VTach Continue Nortriptyline 10 mg daily --Agitation 06/12: On Precedex drip. H/O Intellectual disability, developmental delay+. Consulted and D/W Psych.Recommended prn IM Zyprexa 5 mg q 6 hours and wean off Precedex Family did not agree for Zyprexa on 06/13 06/14 Sisters agreed for prn Zyprexa IM 06/15 Weaned off Precedex drip and started on prn IM Zyprexa 06/14 UA neg 06/14 CT Head neg Resolved --Headache following syncope with scalp lac requiring suture : 06/14 CT Head neg DVT Prophylaxis with Xarelto Code status: Full code D/W RN Medical Decision Making complexity: Low Expected date of discharge: ? Barriers to discharge:Acceptance from new SNF Discharge disposition: nursing home facility Mell Curran MD 06/17/2024 9:16 AM [facility] * Seth Flores MD - 06/16/2024 9:26 PM CDT Nephrology Progress Note [facility] SUBJECTIVE 06/16 Confused but pleasant tonight. All labs reviewed. K, mg ok. No cardiac issues. Voiding. 06/15 Out of restraints. Doing better. Labs stable. 06/14 Calmer today. Remains in restraints. K and mg okay. Incontinent of urine. No further dysrhythmia. All labs and data reviewed. 06/13 Appears comfortable. All labs and data reviewed. K 3.9, mg 2.0. No further dysrhythmia reported. Uncooperative and agitated earlier. 06/12 Overall stable. All labs and data reviewed. Bp soft, confused. 2 plus blood in urine. OBJECTIVE Vitals: Vitals: 06/16/24 1157 06/16/24 1600 06/16/24 1620 06/16/242033 BP: 135/71 127/76 108/62 BP Location: Right arm Left arm Patient Position: Sitting Sitting Pulse: 88 87 83 86 Resp: 18 16 Temp: 36.8 ??C (98.2 ??F) 36.4 ??C (97.5 ??F) 36.5 ??C (97.7 ??F) TempSrc: Oral Oral SpO2: 95% 97% 94% Weight: Height: No intake or output data in the 24 hours ending 06/16/242125 REVIEW OF SYSTEMS Review of Systems Constitutional: Negative. HENT: Negative. Eyes: Negative. Respiratory: Negative. Cardiovascular: Negative. Gastrointestinal: Negative. Genitourinary: Negative. Musculoskeletal: Negative. Skin: Negative. Allergic/Immunologic: Negative. Hematological: Negative. All other systems reviewed and are negative. PHYSICAL EXAM Physical Exam Constitutional: Appears well-developed. HENT: wnl Head: Normocephalic. Eyes: Pupils are equal, round, and reactive to light. Neck: Normal range of motion. Neck supple. Cardiovascular: Normal rate. Pulmonary/Chest: Effort normal and breath sounds normal. Abdominal: Soft. Musculoskeletal: Normal range of motion. Neurological: Alert, oriented. Skin: Skin is warm. Nursing note and vitals reviewed. MEDICATIONS Current Facility-Administered Medications: acetaminophen (TYLENOL) tablet 650 mg, 650 mg, oral, Q4H PRN, Mell Curran MD, 650 mg at 06/16/24 1155 albuterol HFA (PROVENTIL HFA,VENTOLIN HFA,PROAIR HFA) 90 mcg/actuation inhaler 2 puff, 2 puff, inhalation, Q6H PRN (RT), Dilan Palmer MD carvediloL (COREG) tablet 25 mg, 25 mg, oral, BID with meals (bkfst, dinner), Rachel Barnes NP, 25 mg at 06/16/24 1647 ceFAZolin (ANCEF) 2,000 mg/100 mL in dextrose (premix) 2 g, 2 g, intravenous, Q8H GALINA, Rachel Barnes NP, Last Rate: 200 mL/hr at 06/16/24 1526, 2 g at 06/16/24 1526 cholecalciferol (VITAMIN D-3) tablet 5,000 Units, 5,000 Units, oral, Daily, Rachel Barnes NP, 5,000 Units at 06/16/24 0835 dextrose oral liquid liquid 15 g, 15 g, oral, Q15 Min PRN OR dextrose (D10W) 10% bolus 250 mL, 250 mL, intravenous, Q15 Min PRN, Rachel Barnes NP docusate sodium (COLACE) capsule 100 mg, 100 mg, oral, BID, Rachel Barnes NP, 100 mg at 06/16/24 0835 escitalopram (LEXAPRO) tablet 5 mg, 5 mg, oral, Daily, Coleen Samuels MD, 5 mg at 06/16/24 0835 ferrous sulfate delayed release tablet 65 mg of elemental iron, 65 mg of elemental iron, oral, Daily with breakfast, Rachel Barnes NP, 65 mg of elemental iron at 06/16/24 0836 fluticasone propionate (FLONASE) 50 mcg/actuation nasal spray 1 spray, 1 spray, each nostril, DailyPRN, Rachel Barnes NP glucagon injection 1 mg, 1 mg, intramuscular, Q30 Min PRN, Rachel Barnes NP insulin glargine (LANTUS, SEMGLEE) 100 unit/mL injection 17 Units, 0.15 Units/kg, subcutaneous, Nightly, Rachel Barnes NP, 17 Units at 06/15/242055 insulin lispro (HumaLOG, ADMELOG) 100 unit/mL injection 0-4 Units, 0-4 Units, subcutaneous, Nightly, Rachel Barnes, ALLY, 1 Units at 06/14/24 2100 insulin lispro (HumaLOG, ADMELOG) 100 unit/mL injection 0-5 Units, 0-5 Units, subcutaneous, TID with meals, Rachel Barnes NP, 2 Units at 06/16/241715 insulin lispro (HumaLOG, ADMELOG) 100 unit/mL injection 6 Units, 0.05 Units/kg, subcutaneous, TID with meals, Rachel Barnes NP, 6 Units at 06/16/241714 levothyroxine (SYNTHROID) tablet 75 mcg, 75 mcg, oral, QAM, Rachel Barnes NP, 75 mcg at 06/16/24 06 magnesium oxide (MAG-OX) tablet 400 mg, 400 mg, oral, Daily, Seth Flores MD, 400 mg at 06/16/24 08 multivit gfsuzqqu-oktf-HL-calcium (THERA-M) tablet 1 tablet, 1 tablet, oral, Daily, Rachel Barnes NP, 1 tablet at 06/16/24 0835 nortriptyline (PAMELOR) capsule 10 mg, 10 mg, oral, Daily, Rachel Barnes NP, 10 mg at 06/16/24 08 OLANZapine (ZyPREXA) 5 mg in sterile water 1 mL (5 mg/mL) syringe, 5 mg, intramuscular, Q6H PRN, Mell Curran MD pantoprazole DR (PROTONIX) extended release tablet 40 mg, 40 mg, oral, Daily, Rachel Barnes NP, 40 mg at 06/16/24 0835 potassium chloride ER (KLOR-CON) extended release tablet 40 mEq, 40 mEq, oral, Daily, Coleen Samuels MD, 40 mEq at 06/16/24 0835 rivaroxaban (XARELTO) tablet 20 mg, 20 mg, oral, Daily with dinner, Rachel Barnes NP, 20 mgat 06/16/24 1647 sacubitriL-valsartan (ENTRESTO) 24-26 mg tablet 1 tablet, 1 tablet, oral, BID, Rachel Barnes NP, 1 tablet at 06/16/24 0835 Lab/Radiology/Diagnostic Review: Recent Results (from the past 24 hour(s)) Magnesium Collection Time: 06/16/24 2:41 AM Result Value Ref Range Magnesium 2.0 1.4 - 2.5 mg/dL Renal function panel Collection Time: 06/16/24 2:41 AM Result Value Ref Range Sodium 138 135 - 145 mmol/L Potassium, pl 4.1 3.3 - 4.9 mmol/L Chloride 104 97 - 110 mmol/L CO2 24 22 - 32 mmol/L Anion gap 10 2 - 15 mmol/L BUN 15 6 - 25 mg/dL Creatinine 0.70 0.60 - 1.10 mg/dL Glucose 130 70 - 199 mg/dL Calcium 9.0 8.5 - 10.3 mg/dL Phosphorus, pl 3.1 2.3 - 4.5 mg/dL Albumin 3.2 (L) 3.5 - 5.0 g/dL eGFR Collection Time: 06/16/24 2:41 AM Result Value Ref Range eGFR >90 >=60 mL/min/1.73 m2 POCT glucose Collection Time: 06/16/24 6:28 AM Result Value Ref Range Glucose, POC 128 70 - 199 mg/dL POCT glucose Collection Time: 06/16/24 11:59 AM Result Value Ref Range Glucose, POC 223 (H) 70 - 199 mg/dL POCT glucose Collection Time: 06/16/24 4:04 PM Result Value Ref Range Glucose, POC 216 (H) 70 - 199 mg/dL POCT glucose Collection Time: 06/16/24 8:02 PM Result Value Ref Range Glucose, POC 289 (H) 70 - 199 mg/dL Recent Labs Lab Units 06/14/24 1415 06/12/24 0646 CLARITY U Clear Clear COLOR U Yellow Yellow KETONES UR Negative Negative NITRITE UR Negative Negative SPEC GRAV U 1.019 1.026 UROBILINOGEN UR mg/dL <2.0 <2.0 WBC UR QT /HPF -- 0-5 CTA Upper Extremity Right W WO Contrast Result Date: 06/07/2024 Narrative: EXAMINATION: CTA UPPER EXTREMITY RIGHT W WO CONTRAST HISTORY: Right upper arm swelling ORDER DATE: 06/06/2024 10:40 PM TECHNIQUE: Imaging protocol: Computed tomographic angiography of the right upper extremity with contrast, including non-contrast images if performed. 3D rendering (Not supervised by radiologist): MIP and/or 3D reconstructed images were created by the technologist. Contrast material: OPTIRAY 350; Contrast volume: 119 ml IV COMPARISON: CT CHEST PE (CTA) W CONTRAST 05/30/2024 FINDINGS: Tubes, catheters and devices: There is a PICC line inserted through the right basilicvein at the level of the distal arm. There is mild fat stranding within the anterior distal arm, without sizable hematoma or drainable fluid collection. No evidence of active extravasation. Pulmonaryarteries: There is a partially visualized curvilinear metallic structure within the right pulmonaryartery, similar to prior. Right subclavian artery: No acute findings. No occlusion or significant stenosis. Axillary artery: No acute findings. No occlusion or significant stenosis. Brachial artery: No acute findings. No occlusion or significant stenosis. Radial artery: No acute findings. No occlusion or significant stenosis. Ulnar artery: No acute findings. No occlusion or significant stenosis. Veins: Peripheral intravenous access is seen within the cephalic vein at the level of the antecubital fossa. Impression: 1. Patent arterial system of the right upper extremity as detailed above. 2. No evidence of hematoma or drainable fluid collection Stat report by [facility] Electronically signed by: Andrea Abernathy M.D. ECG 12 lead Result Date: 06/06/2024 Narrative: Vent Rate: 78 bpm RR Interval: 763 msec [place] Interval: 0 msec QRS Duration: 154 msec QT Interval: 473 msec QTC Interval: 506 msec P-R-T [place]: 0 - 23 - 94 degrees IMPRESSION: ATRIAL FIBRILLATION Occasional ventricular pacing INDETERMINATE AXIS Left bundle branch block ABNORMAL ECG Electronically Signed By: Dr. Shiloh Muhammad [facility] US Vein Duplex Upper Extremity Right Limited, Unilateral Result Date: 06/06/2024 Narrative: EXAMINATION: US VEIN DUPLEX UPPER EXTREMITY RIGHT LIMITED, UNILATERAL HISTORY: The patient is a 63-year-old female who presents with swelling in the right upper extremity. TECHNIQUE: Rightupper extremity venous duplex study was performed with hahn scale imaging, color Doppler imaging and spectral waveform analysis. FINDINGS: There is normal compressibility and phasicity in both internal jugular and subclavian veins as well as the right axillary, brachial, radial, ulnar, cephalic andbasilic veins. Imaging of these veins reveals no thrombus within the lumen. Impression: There is no evidence of acute DVT in the right upper extremity. Electronically signed by: Conrad Davila M.D. XR Chest Pa Lateral 2 Views Result Date: 06/06/2024 Narrative: EXAMINATION: XR CHEST PA LATERAL 2 VIEWS HISTORY: The patient is a 63-year-old female who has had placement of a PICC line. Comparison made with the previous study dated 12/26/2020. TECHNIQUE: AP and lateral view of the chest. FINDINGS: The distal tip of the right PICC line is in the distal superior vena cava. Cardiomegaly with aortic atherosclerosis. No failure. No active infiltrate. Impression: No failure. Electronically signed by: Conrad Davila M.D. IR PICC Line Placement Over 5 Years of Age Result Date: 06/05/2024 Narrative: EXAMINATION: IR PICC LINE PLACEMENT OVER 5 YEARS OF AGE DATE: 06/05/2024 2:05 PM HISTORY:sepsis Unsuccessful attempt at bedside PICC line placement by in-house vascular team. TECHNIQUE: The risks, benefits, and alternatives were discussed and informed consent was obtained. Prior to beginn ing the procedure, universal protocol was performed to confirm the patient's identity and the planned procedure. Maximum sterile barriers including cap, mask, hand hygiene, sterile gloves, sterile gown, large sterile drape, sterile gel, sterile ultrasound probe cover, and 2% chlorhexidine for cutaneous antisepsis were used. The skin over the right basilic vein was sterilely prepped, draped, and infiltrated with lidocaine. Prior to the procedure, this target vessel was evaluated by ultrasound and an image of the patent vessel demonstrating vessel patency was recorded in the patient's electronic medical record. This vessel was then accessed using real-time ultrasound guidance. A guidewire waspassed centrally using fluoroscopic guidance. The intravascular length from the access site to the right atrium was assessed. After dilating the tract, a 45 cm, 5-[place] dual-lumen PICC was inserted through the peel-away sheath. The peel-away sheath was then removed. The catheter was flushed and sec ured in place. A sterile dressing was applied. The final fluoroscopic image demonstrates the catheter with its tip at the cavoatrial junction. No complications were identified. The catheter is ready for immediate use. When treatment is completed, this catheter can be removed at the bedside according to standard hospital protocol. Impression: Successful PICC placement using ultrasound guidance. Electronically signed by: Blaine Nash M.D. XR Chest 1 View Result Date: 06/05/2024 Narrative: EXAMINATION: XR CHEST 1 VIEW HISTORY: The patient is a 63-year-old female who has had anattempted PICC line placement. Comparison made with the previous study dated 05/29/2024. TECHNIQUE:AP portable view of the chest. FINDINGS: Cardiomegaly with aortic atherosclerosis. No failure. No active infiltrate. Impression: Cardiomegaly. Electronically signed by: Conrad Davila M.D. ECG 12 lead Result Date: 06/02/2024 Narrative: Vent Rate: 86 bpm RR Interval: 697 msec OH Interval: 0 msec QRS Duration: 157 msec QT Interval: 470 msec QTC Interval: 513 msec P-R-T [place]: 0 - 38 - 88 degrees IMPRESSION: ATRIAL FIBRILLATION WITH ABERRANT CONDUCTION OR VENTRICULAR PREMATURE COMPLEXES LEFT BUNDLE BRANCH BLOCK [120+ ms QRS DURATION, 80+ ms Q/S IN V1/V2, 85+ ms R IN I/aVL/V5/V6] ABNORMAL ECG Compared to prior EKG, ventricular pacing is no longer present Electronically Signed By: Antonio Carlos MD ECG 12 lead Result Date: 06/02/2024 Narrative: Vent Rate: 76 bpm RR Interval: 782 msec OH Interval: 0 msec QRS Duration: 158 msec QT Interval: 494 msec QTC Interval: 525 msec P-R-T [place]: 0 - 116 - 120 degrees IMPRESSION: ATRIAL FIBRILLATION WITH demand ventricular pacemaker MARKED RIGHT AXIS DEVIATION [QRS AXIS > 100] INTRAVENTRICULAR CONDUCTION DELAY [130+ ms QRS DURATION] ABNORMAL ECG Compared to prior EKG, demand ventricular pacing is new Electronically Signed By: Antonio Carlos MD CT Abdomen Pelvis W Contrast Result Date: 06/01/2024 Narrative: EXAMINATION: CT ABDOMEN PELVIS W CONTRAST DATE: 06/01/2024 1:05 PM HISTORY: Sepsis. COMPARISON: 02/28/2017. TECHNIQUE: Transaxial computed tomographic images of the abdomen and pelvis were obtained after the administration of 119 mL of Optiray 350 intravenously. Multiplanar coronal and sagittal images were reformatted. FINDINGS: Similar scarring in the left lung base unchanged since 2017. There is cardiomegaly and mosaic attenuation in the lung bases suggestive of pulmonary edema. There is a small hiatal hernia. Cholecystectomy. Diffuse hepatic steatosis. The spleen, pancreas, and adrenal glands are unremarkable. Kidneys are unremarkable. No hydroureteronephrosis. Unopacified bladder is unremarkable. Uterus and adnexal structures are unremarkable. No free fluid in the pelvis. There is diverticulosis. No evidence of diverticulitis. The small bowel is unremarkable. Mild atherosclerotic calcifications in the aorta and branch vessels. Subcutaneous tissues are unremarkable. No pathologic by size criteria lymphadenopathy. Mild bilateral sacroiliac joint arthrosis. No acute fracture. No pathologic by size criteria lymphadenopathy. Impression: 1. Mosaic attenuation in the lung bases suggestive of interstitial pulmonary edema. 2. Diffuse hepatic steatosis. 3. Small hiatal hernia. 4. Trace left pleural effusion. 5. Additional chronic or incidental findings as above. Electronically signed by: Azeem Robins II, D.O. ECG 12 lead Result Date: 06/01/2024 Narrative: Vent Rate: 102 bpm RR Interval: 584 msec OH Interval: 0 msec QRS Duration: 149 msec QT Interval: 387 msec QTC Interval: 446 msec P-R-T [place]: 0 - 115 - 66 degrees IMPRESSION: ATRIAL FIBRILLATION WITH RAPID VENTRICULAR RESPONSE WITH ABERRANT CONDUCTION OR VENTRICULAR PREMATURE COMPLEXES INDETERMINATE AXIS INTRAVENTRICULAR CONDUCTION DELAY [130+ ms QRS DURATION] ABNORMAL ECG NO CHANGE FROM PREVIOUS TRACING NOTED Electronically Signed By: Antonio Carlos MD ECG 12 lead Result Date: 06/01/2024 Narrative: Vent Rate: 83 bpm RR Interval: 716 msec OH Interval: 0 msec QRS Duration: 154 msec QT Interval: 409 msec QTC Interval: 449 msec P-R-T [place]: 0 - 123 - 189 degrees IMPRESSION: ATRIAL FIBRILLATION INTRAVENTRICULAR CONDUCTION DELAY LATERAL MYOCARDIAL INFARCTION , OF INDETERMINATE AGE Electronically Signed By: Cristino Kingsley MD, [facility] ECG 12 lead Result Date: 05/31/2024 Narrative: Vent Rate: 74 bpm RR Interval: 810 msec OH Interval: 0 msec QRS Duration: 151 msec QT Interval: 449 msec QTC Interval: 476 msec P-R-T [place]: 0 - 102 - 146 degrees IMPRESSION: VENTRICULAR PACED RHYTHM Electronically Signed By: Cristino Kingsley MD, [facility] ECG 12 lead Result Date: 05/31/2024 Narrative: Vent Rate: 76 bpm RR Interval: 785 msec OH Interval: 0 msec QRS Duration: 150 msec QT Interval: 471 msec QTC Interval: 501 msec P-R-T [place]: 0 - 80 - 97 degrees IMPRESSION: ATRIAL FIBRILLATION WITH ABERRANT CONDUCTION OR VENTRICULAR PREMATURE COMPLEXES INTRAVENTRICULAR CONDUCTION DELAY [130+ ms QRS DURATION] ABNORMAL ECG Electronically Signed By: Dr. Shiloh Muhammad [facility] ECG 12 lead Result Date: 05/30/2024 Narrative: Vent Rate: 109 bpm RR Interval: 548 msec OH Interval: 0 msec QRS Duration: 149 msec QT Interval: 398 msec QTC Interval: 462 msec P-R-T [place]: 0 - 96 - 89 degrees IMPRESSION: ATRIAL FIBRILLATION WITH RAPID VENTRICULAR RESPONSE BORDERLINE RIGHT AXIS DEVIATION [QRS AXIS > 90] INTRAVENTRICULAR CONDUCTION DELAY [130+ ms QRS DURATION] ABNORMAL ECG Unchanged compared to an EKG done earlieron May 30, 2024 Electronically Signed By: Dr. Shiloh Muhammad [facility] CT Chest WO Contrast Result Date: 05/30/2024 Narrative: EXAMINATION: Computed tomography of the chest without intravenous contrast HISTORY: Right lower lobe pulmonary artery for and body TECHNIQUE: Transaxial computed tomographic images of the chest were obtained without intravenous contrast according to the standard protocol. COMPARISON: 05/30/[address] angiography. FINDINGS: Bilateral small pleural effusions and atelectasis. There is trace pulmonary edema. Heart is enlarged. Small volume pericardial effusion. Pacemaker defibrillator leads terminate in the right atrium and right ventricle. There left hilar calcified granulomas. There is a curvilinear density originating in the right lower lobe pulmonary artery and extending distally into a lateral basilar subsegmental branch vessel. Visualized portions of the upper abdomen demonstrate changes of cholecystectomy. No suspicious osseous lesions. Impression: 1. Redemonstrated curvilinear radiopaque density extending from the proximal right lower lobe pulmonary artery into a subsegmental lateral basilar branch favors a catheter or wire fragment. 2. Findings most suggestive of heart failure with cardiomegaly, small volume pericardial effusion, and small bilateral pleural effusions and mild pulmonary edema. Electronically signed by: Abilio Post M.D. Transthoracic Echo (TTE) Complete W Doppler/CF Result Date: 05/30/2024 Narrative: [place] [address] Echocardiogram Report Patient Name: LEI RODRIGUEZ V : 1960 Study Date: 05/30/2024 7:47:08 AM Gender: F Tech: GUILHERME Location: [id number] Ref Provider: TY MCFARLAND Height(Cm): 165 BSA: 2.43 Weight(Kg): 128.7 Heart Rate: 94 BP: 135/84 Quality:Good Order Provider: TY MCFARLAND PROCEDURES: Echocardiographic Report: Transthoracic echocardiogram with complete 2D, M-Mode, color Doppler examination and contrast. INDICATIONS: Endocarditis. Measurements: 2D/M Mode Doppler Measurement Value Normal Range Measurement Value Normal Range EF Teich 2D 21.6 [ 54.0 - 74.0 ] percent MARIANA Vmax 3.09 cm2 EF Mod 4C 33.1 percent AV Mean PG 3 mmHg HLTFx9E 5.71 [ 3.80 - 5.20 ] cm AV Peak Chadd 1.08 [ 1.00 - 1.70 ] m/s LVIDs 2D 5.14 [ 2.20 - 3.50 ] cm AVVTI 19.35 cm LVPWd 2D 0.98 [ 0.60 [...] PV Peak Chadd 1.14 [ 0.40 - 0.80] m/s TR Peak Chadd 2.94 [ 1.00 - 2.80 ] m/s TR Peak PG 35 mmHg RVSP 38.00 [ 10.00 - 36.00 ] mmHg E`0.05 m/s E/E` 19.29 Measurement Value Normal Range [...] peak RVSP is 42 mmHg. Mild to mod erate tricuspid regurgitation. Pericardium: Trivial pericardial effusion. Aorta: Mild aortic root calcification. IVC: Dilated IVC without respiratory collapse consistent with elevated right atrial pressure (>15 mmHg). Pulmonary Artery: Mild enlargement of the pulmonary artery. CONCLUSIONS: Technically difficult study with limited views. Mild enlargement of left ventricle cavity. Left ventriclenot well visualized. Optison contrast agent used to [...] effusion. Electronically Signed By: Coleen Cortez DO, [facility], ANDREE, MELISSA 2024-05-30 09:18:05 CDT CC: CC: CC: XR Chest 1 View Result Date: 05/30/2024 Narrative: EXAMINATION: XR CHEST 1 VIEW History: Shortness of breath Impression: Single view chest exam similar for interpretation with comparison to prior from 03/07/2017. Correlation made with CT from the same day There are diffuse interstitial and airspace opacitiescompatible with moderate pulmonary edema. Likely small effusions. Heart is enlarged. There is a curvilinear density projecting over the right lower lung which corresponds to a catheter or wire in theright lower lobe pulmonary arteries when correlated with the CT examination. This finding is not present on the prior 2017 examination. The presence of this finding was discussed by Dr. Abernathy with Dr. Hollis and documented by Dr. Hollis in the medical record on 05/30/2024 at 457. Electronically signed by: Abilio Post M.D. ECG 12 lead Result Date: 05/30/2024 Narrative: Vent Rate: 86 bpm RR Interval: 697 msec [place] Interval: 0 msec QRS Duration: 145 msec QT Interval: 438 msec QTC Interval: 481 msec P-R-T [place]: 0 - 101 - 95 degrees IMPRESSION: ATRIAL FIBRILLATION RIGHT AXIS DEVIATION [QRS AXIS > 100] INTRAVENTRICULAR CONDUCTION DELAY [130+ ms QRS DURATION] ABNORMAL ECG Unchanged compared to 05/29/2021 Electronically Signed By: Dr. Shiloh Muhammad [facility] CT Chest PE (CTA) W Contrast Result Date: 05/30/2024 Narrative: EXAMINATION: CT CHEST PE (CTA) W CONTRAST HISTORY: Chest pain ORDER DATE: 05/30/2024 3:20AM TECHNIQUE: CT chest images were acquired using a chest angiographic protocol with 3-D imaging optimized for PE is obtained [id number] mL of Optiray 350 IV. 2D Coronal and sagittal reformats were obtained. 3-D rendering (not supervised by radiologist) MIP and/or 3-D reconstructed images were created by the technologist. FINDINGS: Dual lead pacer device implanted in the left chest wall with leads in the right atrium and right ventricle. Pulmonary arteries: Dilated main pulmonary artery measuring 4.9 cm. Some of the segmental branches are not well assessed for exclusion of subtle emboli due to excessive motion. Otherwise centrally no pulmonary artery emboli. A dislodged catheter is visualized in the distal right pulmonary artery extending into the lobar and segmental right lower lobe pulmonary artery branch, image [id number] 134/coronal series 9. Aorta: Unremarkable. No aortic aneurysm. No aortic dissection. Lungs: Diffuse multilobar septal thickening, peribronchial thickening and increasedground-glass alveolar airspace opacity of the lung parenchyma representing findings of pulmonary interstitial edema. Pleural spaces: Mild left and trace to mild right pleural effusions. Heart: Four-chamber enlarged heart. Reflux of contrast within the hepatic veins and IVC may suggest right heart failure. Trace to mild pericardial effusion present. Lymph nodes: Multiple calcified mediastinal and hilar lymph nodes which suggest prior exposure to granulomatous disease. No lymphadenopathy. Diaphragm: There is a small hiatal hernia. Liver: Coarsened nodular hepatic parenchyma may suggest underlying chronic hepatocellular disease. Liver is prominent in size measuring 17.5 cm. Gallbladder and biliary ducts: Cholecystectomy. Bones/joints: No acute fracture. Soft tissues: Unremarkable. Impression: 1. Motion degraded evaluation of the pulmonary arteries. Some of the segmental branchesare not well assessed for exclusion of subtle emboli. Otherwise centrally no pulmonary artery emboli. 2. Pulmonary arterial hypertension and dislodged the catheter visualized in the distal right pulmonary artery and right lower lobe lobar and segmental pulmonary artery branch. 3. CHF, pulmonary edema and small bilateral pleural effusions. 4. Possible congestive cirrhosis. Correlate with LFTs. 5. Additional findings as described above. Stat report by [facility] . Electronically signed by: Andrea Abernathy M.D. CT Cervical Spine WO Contrast Result Date: 05/30/2024 Narrative: EXAMINATION: CT CERVICAL SPINE WO CONTRAST HISTORY: Neck pain ORDER DATE: 05/29/2024 10:55 PM TECHNIQUE: Multiple helical axial images of the cervical spine were obtained without the administration of contrast. Coronal and sagittal reformatted images were included. FINDINGS: Bones: No acute fracture. Chronic mild C6 loss of vertebral body height present. Normal alignment. Mild right C3-C4 facet arthrosis. C3-C4 disc narrowing and partially calcified bulging disc contributing to wvpv-sr-peqibzdy central spinal stenosis. Disc osteophyte complex also contributing to fnva-wt-jyjohowb central spinal stenosis at C4-C5 level. No significant disc bulge or herniation. No severe spinal canal stenosis. Uncovertebral joint hypertrophy contributing to multilevel bilateral neural foraminal stenosis. Lungs: Lung apices are normal. Soft tissues: Unremarkable. Impression: No acute cervical spine injury. Stat report by [facility] Stat report by [facility] Electronically signed by: Andrea Abernathy M.D. CT Head WO Contrast Result Date: 05/30/2024 Narrative: EXAMINATION: CT head without contrast HISTORY: Headache, new or worsening (Age >= 50y) TECHNIQUE: Noncontrast CT of the brain was performed with images acquired from skull base to vertex. COMPARISON: None available. FINDINGS: Brain: Global volume loss and cortical dilatation present.No hemorrhage. Mild chronic microvascular ischemic changes of the periventricular white matter. No m ass effect. No edema. Cerebral ventricles: No ventriculomegaly. Paranasal sinuses: Visualized sinuses are unremarkable. No fluid levels. Mastoid air cells: Visualized mastoid air cells are well aerated. Bones: Unremarkable. No acute fracture. Soft tissues: Unremarkable. Impression: No acute intracranial findings. Stat report by [facility] Electronically signed by: Andrea Abernathy M.D. ECG 12 lead Result Date: 05/30/2024 Narrative: Vent Rate: 93 bpm RR Interval: 645 msec [place] Interval: 0 msec QRS Duration: 97 msec QT Interval: 197 msec QTC Interval: 247 msec P-R-T [place]: 0 - 118 - 0 degrees IMPRESSION: ATRIAL FIBRILLATION WITH ABERRANT CONDUCTION OR VENTRICULAR PREMATURE COMPLEXES LOW QRS VOLTAGE [QRS DEFLECTION < 0.5/1.0 mV IN LIMB/CHEST LEADS] SEPTAL MYOCARDIAL INFARCTION , PROBABLY OLD [40+ ms Q WAVE IN V1/V2]Nonspecific IVCD LATERAL MYOCARDIAL INFARCTION , OF INDETERMINATE AGE [40+ ms Q WAVE AND/OR ST/T ABNORMALITY IN I/aVL/V5/V6] ABNORMAL ECG Electronically Signed By: Antonio Carlos MD ASSESSMENT/PLAN Controlled type 2 diabetes mellitus with chronic kidney disease, with long-term current use of insulin (HCC) Hypothyroidism Hypotension due to drugs Chronic diastolic congestive heart failure (CMS/HCC) (HCC) Endocarditis Urinary frequency Gastroesophageal reflux disease without esophagitis Paroxysmal atrial fibrillation (CMS/HCC) ([facility]) Major depressive disorder CKD (chronic kidney disease) CKD ? Hypokalemia/hypomag. Recent endocarditis. Recurrent ICD firing. A fib. DM/HTN. Hx of CHF. Hypothyroidism. PLAN Renal fn is stable, ckd/gerald ocasio not indicated. Hold lasix, keep K over 4, Mg over 2. Cards ocasio, ICD interrogation, Hold Tikosyn/BB. Daily RFP. Will d/w cardiology Repeat CHANCE. 06/12, d/w cards, monitor k, mg and cr, recs as above, monitor microscopic hematuria, start mgo and kcl. 06/13, K and mg acceptable, rpt ua, continue K and mg at current dose. 06/14, k and mg stable, stable renal fn/lytes, continue daily RFP and mag. 06/15, same management, no changes. -06/16, k, mg stable, no reported cardiac rhythm issues, will follow. I can be reached at [phone] with any concerns. Thank you Mell Curran MD for the consult. Seth Flores MD [employer] [phone] * Jory Marvin MD - 06/16/2024 12:35 PM CDT Cardiology Daily Progress SUBJECTIVE: Sitting comfortably on a chair Voices no complaints On IV antibiotics Afebrile OBJECTIVE: Vitals: 06/15/24 2200 06/16/24 0422 06/16/24 0800 06/16/24 1157 BP: 129/80 119/61 134/71 135/71 BP Location: Right arm Right arm Right arm Right arm Patient Position: Lying Sitting Pulse: 84 97 100 88 Resp: 16 16 18 18 Temp: 36.4 ??C (97.5 ??F) 36.4 ??C (97.5 ??F) 36.7 ??C (98 ??F) 36.8 ??C (98.2 ??F) TempSrc: Oral Oral Oral Oral SpO2: 96% 100% 100% 95% Weight: Height: No intake or output data in the 24 hours ending 06/16/24 1235 Scheduled Medications Medication Dose Route Frequency carvediloL (COREG) tablet 25 mg 25 mg oral BID with meals (bkfst, dinner) ceFAZolin (ANCEF) 2,000 mg/100 mL in dextrose (premix) 2 g 2 g intravenous Q8H GALINA cholecalciferol (VITAMIN D-3) tablet 5,000 Units 5,000 Units oral Daily docusate sodium (COLACE) capsule 100 mg 100 mg oral BID escitalopram (LEXAPRO) tablet 5 mg 5 mg oral Daily ferrous sulfate delayed release tablet 65 mg of elemental iron 65 mg of elemental iron oral Daily with breakfast insulin glargine (LANTUS, SEMGLEE) 100 unit/mL injection 17 Units 0.15 Units/kg subcutaneous Nightly insulin lispro (HumaLOG, ADMELOG) 100 unit/mL injection 0-4 Units 0-4 Units subcutaneous Nightly insulin lispro (HumaLOG, ADMELOG) 100 unit/mL injection 0-5 Units 0-5 Units subcutaneous TID with meals insulin lispro (HumaLOG, ADMELOG) 100 unit/mL injection 6 Units 0.05 Units/kg subcutaneous TID withmeals levothyroxine (SYNTHROID) tablet 75 mcg 75 mcg oral QAM magnesium oxide (MAG-OX) tablet 400 mg 400 mg oral Daily multivit fxvhfyum-aqkx-TD-calcium (THERA-M) tablet 1 tablet 1 tablet oral Daily nortriptyline (PAMELOR) capsule 10 mg 10 mg oral Daily pantoprazole DR (PROTONIX) extended release tablet 40 mg 40 mg oral Daily potassium chloride ER (KLOR-CON) extended release tablet 40 mEq 40 mEq oral Daily rivaroxaban (XARELTO) tablet 20 mg 20 mg oral Daily with dinner sacubitriL-valsartan (ENTRESTO) 24-26 mg tablet 1 tablet 1 tablet oral BID LABS: Recent Labs Lab Units 06/11/24 0107 WBC K/cumm 6.0 6.3 HEMOGLOBIN g/dL 11.5* 11.6* HEMATOCRIT % 35.8 35.8 PLATELETS K/cumm 314 286 Recent Labs Lab Units 06/16/24 1159 06/16/24 0628 06/16/24 0241 SODIUM mmol/L -- -- 138 POTASSIUM PLASMA mmol/L -- -- 4.1 CHLORIDE mmol/L -- -- 104 CO2 mmol/L -- -- 24 ANIONGAP mmol/L -- -- 10 GLUCOSE mg/dL -- -- 130 POC GLUCOSE MONITOR mg/dL 223* < > -- BUN SERUM mg/dL -- -- 15 CREATININE mg/dL -- -- 0.70 CALCIUM mg/dL -- -- 9.0 ALBUMIN g/dL -- -- 3.2* < > = values in this interval not displayed. Lab Results Component Value Date BNP 911 (H) 02/28/2017 BNP 625 (H) 02/11/2017 Lab Results Component Value Date TROPONINI <0.03 02/28/2017 TROPONINI <0.03 02/12/2017 TROPONINI <0.03 02/12/2017 No results found for: TSH Exam General: Comfortable Lungs: symmetric, unlabored, clear to auscultation bilaterally Heart: S1,S2, regular rate & rhythm, no murmurs, rubs, or gallops Abdomen: soft, non-tender, non-distended, bowel sounds present Extremities: no LE edema, palpable peripheral pulses BL Neurologic: No focal deficits ASSESSMENT/PLAN: Episode of syncope -secondary to VF a -no further arrhythmias on telemetry -troponins are normal -CT head unremarkable -chest x-ray cardiomegaly -tikosyn discontinue with concerns for QTC prolongation -no arrhythmias on tele monitor -no further syncopal episode V-fib. -5 episodes of VFib with appropriate ICD firing. -K 3.2 on admission and today it is 3.8 - magnesium 2.0 - previous [facility] that was negative for CAD. Given normal troponin no need for IP cath. Questionable endocarditis. -no vegetations seen on CHANCE last admission. - to continue antibiotics as per Infectious Disease until 06-09-24 Persistent Atrial fibrillation. - CHANCE 05/31/24 that showed left atrial appendage clot therefore no CV - placed on tikosyn 500 mcg BID with plans to CV at later date. -On xarelto for AC. -Check TSH and replete lytes. -Tikosyn and calcium channel blockers been discontinued. Dislodged catheter. in pulmonary artery noted on CT chest and [facility]ANCE last admission. Chronic systolic congestive heart failure. -Clinically compensated at this time. -EF 30% by echo last admit. Continue BB and Entresto. -diuretics on home. Diabetes type 2 -per hospitalist Hypothyroid -treated Clinically stable Continue with present management supportive care Jory Marvin MD, [facility] 06/16/2024 12:35 PM * Eben Pettit MD - 06/16/2024 12:00 PM CDT Infectious Disease Consult Consulting Physician: Eben Pettit MD. Reason for consult: Ongoing IV antibiotic therapy new admission for syncope Interval history/review of systems Sitting up in chair Upset, says Renetta sims, I want to go home Afebrile currently Sitter and sister in room Objective: Vitals: 24hr Min/Max: Temp Min: 36.4 ??C (97.5 ??F) Max: 37.3 ??C (99.1 ??F) Pulse Min: 76 Max: 100 BP Min: 110/64 Max: 140/77 Resp Min: 14 Max: 29 SpO2 Min: 93 % Max: 100 % Most Recent : Vitals: 06/15/24199906/15/24219906/16/2442106/16/24 0800 BP: 110/64 129/80 119/61 134/71 BP Location: Right arm Right arm Right arm Right arm Patient Position: Sitting Lying Pulse: 86 84 97 100 Resp: 29 16 16 18 Temp: 36.4 ??C (97.5 ??F) 36.4 ??C (97.5 ??F) 36.7 ??C (98 ??F) TempSrc: Oral Oral Oral SpO2: 96% 96% 100% 100% Weight: Height: Physical Exam: General appearance: alert, cooperative, no distress HEENT: (-)icterus, Oropharnyx is normal, forehead with stitches, site is clean Neck: No palpable LN Lungs: breath sounds normal and symmetric; minimal respiratory effort, no r/w/c Heart: normal S1 and S2, no m/r/g Abdomen: soft without mass, non-tender, +bowel sounds, no HSM Extremities/Skin: no gross deformities, FROM, no new rashes, no ulcerations Vascular: no Edema, pulses present bilaterally Neuro: No focal deficits Psych: Appropriate mood and affect Double-lumen PICC line right upper extremity placed 06/05, site is clean Labs Reviewed. Recent Labs Lab Units 06/11/24 0107 WBC K/cumm 6.0 6.3 HEMOGLOBIN g/dL 11.5* 11.6* HEMATOCRIT % 35.8 35.8 PLATELETS K/cumm 314 286 Recent Labs Lab Units 06/16/24 0241 06/15/24 0609 06/14/24 0435 BUN SERUM mg/dL 15 16 11 CREATININE mg/dL 0.70 0.72 0.67 Lab Results Component Value Date ALT 5 (L) 06/08/2024 AST 21 06/08/2024 ALKPHOS 217 (H) 06/08/2024 BILITOT 0.5 06/08/2024 Cultures Blood culture 06/13 no growth so far Urinalysis with no significant signs of infection on 06/12 Imaging CTA right upper extremity with no evidence of hematoma or drainable fluid collection. Patent arterial system. No evidence of DVT Assessment: MSSA bacteremia Called microlab during last admission, [facility] blood cultures 05/25 NG. blood cultures were positive for Staph aureus 05/21 and 05/22 Documented at outside hospital, unknown date so far will follow-up with [facility]. 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 Discussed case with Dr. Neli Hutchinson during last admission She underwent CHANCE, with no visible valve vegetation. Repeat blood cultures 05/30 no growth She has AICD in place. There was a clot in MAULIK, probably an appendage clot, hence synchronized Cardioversion was canceled on last admission. Electrophysiology/Cardiology team was following and there was plan for Bi V ICD after completing antibiotic course. Blood cultures were negative at outside hospital from 05/25, blood cultures negative at this facility from 05/30 CT abdomen and pelvis 06/01 With no significant infectious findings Nausea vomiting/syncope due to VF/fall Cardiology is following Dislodged catheter/lead.. PA Atrial fibrillation CHF GERD Hypertension Obstructive sleep apnea Thyroid disease Intellectual disability Plan: Continue on Ancef to complete therapy till 06/22, due to presence of AICD. blood cultures from 05/30 no growth. New blood cultures were ordered due to fever 06/13 . Afebrile now Urinalysis from 06/12 with no signs of infection IR guided PICC line placement on 06/05. Right upper extremity, Dopplers with no DVT, CTA with no hematoma/fluid collection. chest x-ray 06/14 no new infiltrate Urine 06/14 no signs of infection Follow-up on blood cultures from 06/13, no growth so far Will follow. Eben Pettit MD 06/16/2024 [facility] Office: [phone] Fax: [phone] Voice recognition software was used to complete this document, therefore, hand spray operator variances may occur. * Mell Curran MD - 06/16/2024 11:46 AM CDT DAILY PROGRESS NOTE C/C:Fall and passed out Interval History: No new events Consults: Ty Mcfarland MD Singh, Inderjit, MD SUBJECTIVE: Complaints: Low back pain 07/19 ROS: OBJECTIVE: Vitals: Temp (24hrs), Av.7 ??C (98 ??F), Min:36.4 ??C (97.5 ??F), Max:37.3 ??C (99.1 ??F) Vitals: 06/15/24199906/15/24 2200 06/16/24 0422 06/16/24 0800 BP: 110/64 129/80 119/61 134/71 BP Location: Right arm Right arm Right arm Right arm Patient Position: Sitting Lying Pulse: 86 84 97 100 Resp: 29 16 16 18 Temp: 36.4 ??C (97.5 ??F) 36.4 ??C (97.5 ??F) 36.7 ??C (98 ??F) TempSrc: Oral Oral Oral SpO2: 96% 96% 100% 100% Weight: Height: LDA: PICC Double Lumen 06/05/24 Non-tunneled Power #1 Red, #2 Purple, Right Basilic;Upper arm (Active) Placement Date/Time: 06/05/24 1505 Catheter Time Out Checklist Completed: Yes Hand Hygiene Performed: Yes Site Prep: Chlorhexidine Site Prep Agent has Completely Dried Before Insertion: Yes All 5 Sterile Barriers or Appropriate Barriers Used (Gl... Number of days: 7 I/O: No intake or output data in the 24 hours ending 06/16/24 1146 Physical Exam General: Up in chair, awake,alert,on RA, NAD SHEENT:Skin warm,dry,no rashes. No icterus,no cyanosis,no pallor,EOMI. Neck:Supple Respi:Slightly diminished breath sounds tamica Cardio:RRR,no murmur GI:Abdomen obese,soft,bowel sounds +,non tender,not distended. Extre:No edema,no cyanosis,no pallor Neuro:Awake,alert,answering questions appropriately.Following commands Psych:No agitation. Laboratory: Recent Results (from the past 24 hour(s)) POCT glucose Collection Time: 06/15/24 4:31 PM Result Value Ref Range Glucose, POC 145 70 - 199 mg/dL POCT glucose Collection Time: 06/15/24 7:37 PM Result Value Ref Range Glucose, POC 147 70 - 199 mg/dL Magnesium Collection Time: 06/16/24 2:41 AM Result Value Ref Range Magnesium 2.0 1.4 - 2.5 mg/dL Renal function panel Collection Time: 06/16/24 2:41 AM Result Value Ref Range Sodium 138 135 - 145 mmol/L Potassium, pl 4.1 3.3 - 4.9 mmol/L Chloride 104 97 - 110 mmol/L CO2 24 22 - 32 mmol/L Anion gap 10 2 - 15 mmol/L BUN 15 6 - 25 mg/dL Creatinine 0.70 0.60 - 1.10 mg/dL Glucose 130 70 - 199 mg/dL Calcium 9.0 8.5 - 10.3 mg/dL Phosphorus, pl 3.1 2.3 - 4.5 mg/dL Albumin 3.2 (L) 3.5 - 5.0 g/dL eGFR Collection Time: 06/16/24 2:41 AM Result Value Ref Range eGFR >90 >=60 mL/min/1.73 m2 POCT glucose Collection Time: 06/16/24 6:28 AM Result Value Ref Range Glucose, POC 128 70 - 199 mg/dL Radiology: Scheduled Medications: carvediloL, 25 mg, oral, BID with meals (bkfst, dinner) ceFAZolin, 2 g, intravenous, Q8H GALINA cholecalciferol, 5,000 Units, oral, Daily docusate sodium, 100 mg, oral, BID escitalopram, 5 mg, oral, Daily ferrous sulfate, 65 mg of elemental iron, oral, Daily with breakfast insulin glargine, 0.15 Units/kg, subcutaneous, Nightly insulin lispro, 0-4 Units, subcutaneous, Nightly insulin lispro, 0-5 Units, subcutaneous, TID with meals insulin lispro, 0.05 Units/kg, subcutaneous, TID with meals levothyroxine, 75 mcg, oral, QAM magnesium oxide, 400 mg, oral, Daily multivit dwkpzgkp-izxy-AN-calcium, 1 tablet, oral, Daily nortriptyline, 10 mg, oral, Daily pantoprazole DR, 40 mg, oral, Daily potassium chloride ER, 40 mEq, oral, Daily rivaroxaban, 20 mg, oral, Daily with dinner sacubitriL-valsartan, 1 tablet, oral, BID Current Facility-Administered Medications: acetaminophen (TYLENOL) tablet 650 mg, 650 mg, oral, Q4H PRN, Mell Curran MD albuterol HFA (PROVENTIL HFA,VENTOLIN HFA,PROAIR HFA) 90 mcg/actuation inhaler 2 puff, 2 puff, inhalation, Q6H PRN (RT), Dilan Palmer MD carvediloL (COREG) tablet 25 mg, 25 mg, oral, BID with meals (bkfst, dinner), Rachel Barnes NP, 25 mg at 06/16/24 0835 ceFAZolin (ANCEF) 2,000 mg/100 mL in dextrose (premix) 2 g, 2 g, intravenous, Q8H GALINA, Rachel Barnes NP, Last Rate: 200 mL/hr at 06/16/24 0837, 2 g at 06/16/24 0837 cholecalciferol (VITAMIN D-3) tablet 5,000 Units, 5,000 Units, oral, Daily, Rachel Barnes NP, 5,000 Units at 06/16/24 0835 dextrose oral liquid liquid 15 g, 15 g, oral, Q15 Min PRN OR dextrose (D10W) 10% bolus 250 mL, 250 mL, intravenous, Q15 Min PRN, Rachel Barnes NP docusate sodium (COLACE) capsule 100 mg, 100 mg, oral, BID, Rachel Barnes NP, 100 mg at 06/16/24 0835 escitalopram (LEXAPRO) tablet 5 mg, 5 mg, oral, Daily, Coleen Samuels MD, 5 mg at 06/16/24 0835 ferrous sulfate delayed release tablet 65 mg of elemental iron, 65 mg of elemental iron, oral, Daily with breakfast, Rachel Barnes NP, 65 mg of elemental iron at 06/16/24 0836 fluticasone propionate (FLONASE) 50 mcg/actuation nasal spray 1 spray, 1 spray, each nostril, DailyPRN, Rachel Barnes, ALLY glucagon injection 1 mg, 1 mg, intramuscular, Q30 Min PRN, Rachel Barnes NP insulin glargine (LANTUS, SEMGLEE) 100 unit/mL injection 17 Units, 0.15 Units/kg, subcutaneous, Nightly, Rachel Barnes NP, 17 Units at 06/15/24 205 insulin lispro (HumaLOG, ADMELOG) 100 unit/mL injection 0-4 Units, 0-4 Units, subcutaneous, Nightly, Rachel Barens NP, 1 Units at 06/14/24 2100 insulin lispro (HumaLOG, ADMELOG) 100 unit/mL injection 0-5 Units, 0-5 Units, subcutaneous, TID with meals, Rachel Barnes NP, 3 Units at 06/15/24 1402 insulin lispro (HumaLOG, ADMELOG) 100 unit/mL injection 6 Units, 0.05 Units/kg, subcutaneous, TID with meals, Rachel Barnes NP, 6 Units at 06/16/24 0835 levothyroxine (SYNTHROID) tablet 75 mcg, 75 mcg, oral, QAM, Rachel Barnes NP, 75 mcg at 06/16/24 0625 magnesium oxide (MAG-OX) tablet 400 mg, 400 mg, oral, Daily, Seth Flores MD, 400 mg at 06/16/24 0835 multivit jufdcxwq-kfld-WU-calcium (THERA-M) tablet 1 tablet, 1 tablet, oral, Daily, Rachel Barnes NP, 1 tablet at 06/16/24 0835 nortriptyline (PAMELOR) capsule 10 mg, 10 mg, oral, Daily, Rachel Barnes NP, 10 mg at 06/16/24 0835 OLANZapine (ZyPREXA) 5 mg in sterile water 1 mL (5 mg/mL) syringe, 5 mg, intramuscular, Q6H PRN, Mell Curran MD pantoprazole DR (PROTONIX) extended release tablet 40 mg, 40 mg, oral, Daily, Rachel Barnes,PAN DEVULCANIZER, 40 mg at 06/16/24 0835 potassium chloride ER (KLOR-CON) extended release tablet 40 mEq, 40 mEq, oral, Daily, Coleen Samuels MD, 40 mEq at 06/16/24 0835 rivaroxaban (XARELTO) tablet 20 mg, 20 mg, oral, Daily with dinner, Rachel Barnes NP, 20 mgat 06/15/24 1733 sacubitriL-valsartan (ENTRESTO) 24-26 mg tablet 1 tablet, 1 tablet, oral, BID, Rachel Barnes NP, 1 tablet at 06/16/24 0835 Continuous Medications: PRN Medications: acetaminophen albuterol HFA dextrose OR dextrose fluticasone propionate glucagon OLANZapine Hospital course: 63 y.o. Morbidly obese [place]F pt with a PMHx significant for A-fib, CHF, DM II, GERD, HTN, Intellectualdisability, OAB, Sleep apnea, thyroid disease and endocarditis Was brought to ED with chief complaint of fall and passed out ASSESSMENT/PLAN: All diagnoses were present on admission unless otherwise stated. Principal Problem: --Syncope due to Ventricular tachycardia- AICD interrogated at [facility] by Cass ArtroniAffymax, noted 5 discharges on the report. Troponins trended 0.018, 0.030 ( 0.000-0.034) Patient currently in Sinus rhythm on Telemetry. Cardiology has seen and has stopped several medications including Tikosyn. Decreased Lexapro to 5 mg a day Active problems: --DM II- Accu check ACHS cover with SSI, continue Lantus and basal meal time Humalog BS 120-220 --Chronic Reduced ejection fraction heart failure- cardiomegaly noted on chest x-ray, OSH BNP 1600 (19.9-100) no noted edema continue Lasix 40 mg daily, Coreg 25 mg BID and Entresto 24/26 BID, last Echo 05/30/24 EF 30% diastolic dysfunction. --Recent H/O Endocarditis- Continue Ancef 2g every 8 hours for 6 more days --Hypothyroidism- Continue Levothyroxine 75 mcg daily --Urinary frequency-Continue Mirabeqron 25 mg daily --Hypotension- continue midodrine 5 mg TID. Now resolved --GERD-Continue Protonix 40 mg daily --A-fib,S/P PPM- Cardizem has been discontinued . Cardiology is following Continue Xarelto 20 mg daily with dinner --CKD stage II- Stable. consulted Nephrology --Depression- Decreased Lexapro dose to 5 mg due to VTach Continue Nortriptyline 10 mg daily --Agitation 06/12: On Precedex drip. H/O Intellectual disability, developmental delay+. Consulted and D/W Psych.Recommended prn IM Zyprexa 5 mg q 6 hours and wean off Precedex Family did not agree for Zyprexa on 06/13 06/14 Sisters agreed for prn Zyprexa IM 06/15 Weaned off Precedex drip and started on prn IM Zyprexa 06/14 UA neg 06/14 CT Head neg Resolved --Headache following syncope with scalp lac requiring suture : 06/14 CT Head neg DVT Prophylaxis with Xarelto Code status: Full code D/W RN Medical Decision Making complexity: Low Expected date of discharge: ? Barriers to discharge:Acceptance from new SNF Discharge disposition: nursing home facility Mell Curran MD 06/16/2024 11:46 AM [facility] [place] * Nikki Gallegos, PHONG - 06/15/2024 2:16 PM CDT NUTRITION ASSESSMENT Nutrition Status: Patient appears adequately nourished at this time. REASON FOR ASSESSMENT: Length of Stay Encounter Date: 06/15/24 2:16 PM Admission Date: 06/10/2024 LOS: 4 days HPI: Patient is a 63 y.o. female with a PMHx significant for A-fib, CHF, DM II, GERD, HTN, Intellectual disability, OAB, Sleep apnea, thyroid disease and endocarditis Patient presents to ED with chief complaint of Syncope and fall 06/15: modifying diet from consistent carb 1600 kcal to 2000kcal, leaving heart healthy restrictions. Objective Past Medical History: Diagnosis Date A-fib (CMS/HCC) (HCC) CHF (congestive heart failure) (CMS/HCC) (HCC) Diabetes mellitus (HCC) GERD (gastroesophageal reflux disease) Hypertension Intellectual disability OAB (overactive bladder) Sleep apnea Thyroid disease Past Surgical History: Procedure Laterality Date CARDIAC DEFIBRILLATOR PLACEMENT CHOLECYSTECTOMY INSERT / REPLACE / REMOVE PACEMAKER IR PICC LINE PLACEMENT > 5 YEARS N/A 06/05/2024 OTHER SURGICAL HISTORY 05/31/2024 CHANCE/CARDIOVERSION Social History Tobacco Use Smoking status: Never Smokeless tobacco: Never Substance and Sexual Activity Drug use: Not on file Sexual activity: Not on file Alcohol Use: Not At Risk (06/01/2024) AUDIT-C Frequency of Alcohol Consumption: Never Average Number of Drinks: Patient does not drink Frequency of Binge Drinking: Never MEDICATION/LAB REVIEW: Scheduled Meds: carvediloL, 25 mg, oral, BID with meals (bkfst, dinner) ceFAZolin, 2 g, intravenous, Q8H GALINA cholecalciferol, 5,000 Units, oral, Daily docusate sodium, 100 mg, oral, BID escitalopram, 5 mg, oral, Daily ferrous sulfate, 65 mg of elemental iron, oral, Daily with breakfast insulin glargine, 0.15 Units/kg, subcutaneous, Nightly insulin lispro, 0-4 Units, subcutaneous, Nightly insulin lispro, 0-5 Units, subcutaneous, TID with meals insulin lispro, 0.05 Units/kg, subcutaneous, TID with meals levothyroxine, 75 mcg, oral, QAM magnesium oxide, 400 mg, oral, Daily multivit ojhetypy-mgim-IR-calcium, 1 tablet, oral, Daily nortriptyline, 10 mg, oral, Daily pantoprazole DR, 40 mg, oral, Daily potassium chloride ER, 40 mEq, oral, Daily rivaroxaban, 20 mg, oral, Daily with dinner sacubitriL-valsartan, 1 tablet, oral, BID Continuous Infusions: dexmedeTOMIDine, 0-0.7 mcg/kg/hr, Last Rate: Stopped (06/14/24 1730) PRN Meds: albuterol HFA dextrose OR dextrose fluticasone propionate glucagon OLANZapine Recent Labs Lab Units 06/15/24 0609 06/14/24 0435 06/13/24 0259 SODIUM mmol/L 136 137 140 POTASSIUM PLASMA mmol/L 4.1 4.1 3.9 CHLORIDE mmol/L 103 103 104 CO2 mmol/L 26 27 28 BUN SERUM mg/dL 16 11 11 CREATININE mg/dL 0.72 0.67 0.64 NWF-NXB-WVQUABV mL/min/1.73 m2 >90 >90 >90 CALCIUM mg/dL 8.9 9.2 9.2 ALBUMIN g/dL 3.0* 3.0* 3.2* PHOSPHORUS PLASMA mg/dL 4.0 3.6 3.6 MAGNESIUM mg/dL 1.9 2.0 2.0 Recent Labs Lab Units 06/15/24 1141 06/15/24 0810 06/15/24 0609 06/14/24 2043 06/14/24 1746 06/14/24 1223 06/14/24 0749 GLUCOSE mg/dL -- -- 137 -- -- -- -- POC GLUCOSE MONITOR mg/dL 289* 123 -- 221* 233* 187 193 No results found for: ALT , AST , BILIRUBIN , ALKPHOS , LIPASE Lab Results Component Value Date HGBA1C 10.4 (H) 02/12/2017 NURSING ASSESSMENT: Last BM Date: 06/15/24 Bowel Sounds (All Quadrants): Active Anthony Scale Score: 19 Skin Integrity: Laceration (sutures) Edema: Mild pitting, silght indention Vital Signs BP: 122/51 Temp: 36.4 ??C (97.6 ??F) Pulse: 76 Resp: 15 SpO2: 96 % Intake/Output Summary (Last 24 hours) at 06/15/2024 1416 Last data filed at 06/15/2024 0855 Gross per 24 hour Intake 942 ml Output 1100 ml Net -158 ml Adult Malnutrition Scoring Tool (MST) What diet do you follow at home?: Regular diet ( gm gram NA) Have You Recently Lost Weight Without Trying?: No Have you been eating poorly because of a decreased appetite?: No Malnutrition Screening Tool (MST) Score: 0 Hunger Screen - Admission Within the past 12 months the food we bought just didn't last and we didn't have money to get more.: Never true Within the past 12 months we worried whether our food would run out before we got money to buy more.: Never true Within the past 12 months, you worried that your food would run out before you got the money to buymore.: Never true Within the past 12 months, the food you bought just didn't last and you didn't have money to get more.: Never true Anthropometrics Weight: 115.1 kg (253 lb 11.2 oz) Admission Weight : 115.1 kg Weight Change: 1.49 kg (3.30 lbs) IBW/kg (Calculated) : 56.7 kg Height: 165.1 cm (5' 5 ) Weight in (lb) to have BMI = 25: 149.9 BMI (Calculated): 42.2 Wt Readings from Last 10 Encounters: 06/11/24 115.1 kg (253 lb 11.2 oz) 06/07/24 113.6 kg (250 lb 6.4 oz) 04/24/18 119.7 kg (264 lb) ESTIMATED NEEDS: Total Kcal/kg Estimated Needs : 2071.4 Kcal/k. Type of Weight Used for Estimated Kcals: Current Total Protein Estimated Needs (gm): 92.06 Protein Needs Based on g/k.8 Type of Weight Used for Estimated Protein : Current Fluid Needs Based on : (1-2 L (CHF)) Type of Weight Used for Estimated Fluid Needs: RD determined Dietary Orders (From admission, onward) Start Ordered 06/14/24 2100 Snacks At bedtime Comments: Provide snack even if Glu reading is >100. Tuesday- Cheddar cheese, crackers and Grapes (26g carbs) Tuesday- Peanut butter and cheese crackers (23g carbs) Tuesday- Chicken Salad Snack Cup (22g carbs) - Peanut butter and sliced apple (23g carbs) Tuesday- Cheddar cheese and crackers (16g carbs) Tuesday- Yoplait Light Yogurt (16g carbs) Tuesday- 1/2 turkey sandwich with martinez (15g carbs) -Alternate- Ensure High Protein (19g carbs) *If Pt cannot have snack of the day, use snack list posted in [employer] with appropriate alternates with carb count* 06/14/24 1054 06/13/24 1154 Adult Diet Restricted; Low Fat, Low Chol, Low Na; Consistent Carb 1600 kilo Diet effective now Question Answer Comment (CH) Diet type Restricted Fat / Sodium Restriction: Low Fat, Low Chol, Low Na Diabetic: Consistent Carb 1600 kilo 06/13/24 1154 Allergies: Reviewed. IMPRESSION: RD screened Pt for LOS. Pt eating lunch, sitter at bedside. No family at bedside. Pt unable to giveRD any meaningful information. Chart reviewed. From nursing facility. Currently on consistent carb 1600kcal and heart healthy diet. Increasing consistent carb to 2000kcal to better meet needs. PO intakes: 75- 100%. Weight Hx reviewed. Weight fluctuates, however, could be d/t CHF and fluid. No Edema noted. I/Os: +784mL since admission. RD met with Pt and sister on 06/05/24. Per last assessment, denied any chewing or swallowing difficulties despite having no teeth and no dentures. Labs/meds reviewed. Glu/24hrs: 137-289. A1C: 9.5%. On insulin regimen. Continue CC diet. Skin: intact. Last BM: 06/14. ASPEN MALNUTRITION ASSESSMENT: NA NUTRITION FOCUSED PHYSICAL EXAM: Not clinically indicated, no concerns for malnutrition at this time. NUTRITION DIAGNOSIS: Nutrition Diagnosis 1: Altered nutrition-related laboratory values Related to: Physiologic issue Evidenced by: Lab abnormality (A1C 9.5%) INTERVENTION(S): Summary: Assess for nutrition changes, Initial assessment, Modify diet GOAL(S): Continue adequate PO intakes MONITORING/EVALUATION: Appetite, Blood glucoses, Plan of care, PO intake, Weight changes, Stool patterns, Discharge plans,Labs Diet Instructions Recommend to follow a consistent carbohydrate/heart healthy diet, which includes a variety of fruits, vegetables, whole-grains, low-fat dairy products, beans, lean meats, and fish. Limit foods that are high in saturated fats and sodium like desserts, fast food, fried/breaded foods, deli meats, sausage, stevens, and gravies/sauces. Aim to eat less than 2,000mg sodium per day (about 500-700 mg per meal). Eat three meals per day and eat 45-60 grams of carbohydrate at each one, do not skip meals and aim to eat meals at consistent times. Avoid sugary drinks like lemonade, regular soda, Gatorade, andsweet tea and drink water throughout the day. Call [phone] to speak with a dietitian about anydiet related concerns. Recommend to follow up with outpatient nutrition counseling, ask your doctorfor referral and call [phone] to make an appointment. Additional Resources [employer]: www.diabetes.org/nutrition [employer]: www.heart.org/en/healthy-living/healthy-eating Nutrition Follow-Up : 06/22/24 Nikki Gallegos MS,RD,LD * Ton Stanton, OT - 06/15/2024 12:57 PM CDT Occupational Therapy NOTE / SESSION TYPE: Initial Evaluation Patient Name: Lei Rodriguez Date of : 1960 Age / Sex: 63 y.o. / female Room: [place] [address] Admit Date: 06/10/2024 Date of Service: 06/15/24 Time In: 1258 Time Out: 1338 Primary Diagnosis: Ventricular tachycardia (HCC) HPI: Lei Rodriguez is a 63 y.o. female who presents with syncope and fall, head lac. Ventricular tachycardia. CT head negative. Agitation requiring restraints. Notable History: A-fib, CHF, DM II, GERD, HTN, Intellectual disability, OAB, Sleep apnea, thyroid disease and endocarditis Past Medical History: Diagnosis Date A-fib (CMS/HCC) (HCC) CHF (congestive heart failure) (CMS/HCC) (HCC) Diabetes mellitus (HCC) GERD (gastroesophageal reflux disease) Hypertension Intellectual disability OAB (overactive bladder) Sleep apnea Thyroid disease Past Surgical History: Procedure Laterality Date CARDIAC DEFIBRILLATOR PLACEMENT CHOLECYSTECTOMY INSERT / REPLACE / REMOVE PACEMAKER IR PICC LINE PLACEMENT > 5 YEARS N/A 06/05/2024 OTHER SURGICAL HISTORY 05/31/2024 CHANCE/CARDIOVERSION Precautions (Including Weight-Bearing): Fall risk, Bed / chair alarm, and Elopement risk Caregiver Present for Session (Yes or No): No, sitter present SUBJECTIVE: Patient Comment: I need my nails cut. Pain Assessment: Pre-therapy pain level: 9 / 10 Pain location: Headache Pain intervention(s): RN Notified Post-therapy pain level: 9 / 10 Pain scale used: 0-10 SCALE Prior Living Environment and Level of Function: Lives with: alone Receives assistance from / other social supports available: sister checks up on her, nephew lives next door Living environment (Type of residence / Entrance accessibility): 1-story house/ trailer, number of outside stairs: 1 Bathroom location and setup: Tub/shower combination Prior level of function: Indep with ADLs, indep with mobility using WW, does minimal cooking Sister performs tour escort and drives patient. Sister assists with finances. Sister performs all IADLs, medications Mobility device used prior to admission: 3 wheel walker Equipment available: Tub transfer bench Vocational / Occupation: disabled Social roles / Hobbies: color/activity book, sewing Patient / Family goal(s): walking Fall(s) within the last 6 months: Per sister, has had a couple falls OBJECTIVE: Appearance: Presentation upon OT arrival: Patient Sitting in bedside recliner Presentation upon OT departure: Patient Sitting in bedside recliner Bed / chair alarm in place and activated upon OT departure: Yes Call light within arms reach of patient at end of session: Yes Completed patient handoff and notified SUPERVISOR SHRIMP POND / RN, name: Molly, of patient's location and functional status upon completion of session Vital Signs: Heart rate at rest: 85 bpm SPO2 at rest: 95 % Heart rate with activity: 84 bpm SPO2 with activity: 94 % Oxygen LPM: room air Blood pressure at rest: 127/68 Cognitive / Perceptual Assessment: Alert and responds to questions appropriately UE ROM / Strength / Coordination: (A)ROM - Right: WFL Strength - Right: 4-/5 throughout (A)ROM - Left: WFL Strength - Left: 4-/5 throughout Hand Dominance: Right Court Orderly Strength (Right) good Court Orderly Strength (Left): good Right Serial Opposition: Intact Left Serial Opposition: Intact Balance: Static sitting balance: good Dynamic sitting balance: good Static standing balance: good Dynamic standing balance: good- Mobility / Transfers: Transfer(s): sitting in recliner <> standing with rollator with MIN A Functional mobility from recliner > bathroom > sink with CGA / MIN A Toilet transfer with MOD A to lift due to low toilet Activities of Daily Living / Living Skills: UE dressing: Patient completed upper body dressing of Hospital gown while Sitting in bedside chair / recliner with overall Minimal assistance. Patient required assistance for threading RUE and threading LUE. Lower Body Dressing: Patient completed lower body dressing of Incontinence briefs as underwear while sitting on toilet and standing at rollator with overall Minimal assistance. Patient required assistance for pulling underwear over hips and physical assistance for balance. Footwear: Patient completed footwear of Footie(s) while Sitting in bedside chair / recliner with overall Supervision assistance. Patient required assistance for verbal cue(s) Toileting Patient completed toileting of hygiene management, clothing management pre- toileting, and clothing management post-toileting while sitting on raised toilet seat without arms and standing at raised toilet seat without arms with overall Moderate assistance. Patient required assistance for hygiene management buttocks and physical assistance for balance. Grooming: Patient completed grooming of washing hands while Standing at sink with overall Minimal assistance.Patient required assistance for physical assistance for balance ASSESSMENT: Rehab Potential (Prognosis): good Problem List: Patient has impairments including: Decreased balance, Decreased mobility, Decreased endurance, Decreased safety awareness, Decreased ADL independence, and Pain. Barriers to Discharge: Pain, Limited safety awareness, Limited insight into deficits, Decreased endurance, and Medical complications PLAN: OT Discharge Recommendations this date: OT RECOMMENDATIONS: OT Recommendation: [facility] Facility Patient at risk for: Patient at high risk for: Falls, Readmission, Injury due to decreased ability to care for self, Injury due to reduced functional status, Injury due to impaired cognition, Injury due to balance deficits, Injury at home as patient has not returned to prior level of function, Mismanagement of medications, Developing secondary complications: poor health management Additional recommendation comments: Recommend SNF due to: Risk of injury at home, Unable to safely care for self in the home, Skilled therapy needed to address care for self in the home, Skilled therapy needed to address functional deficits, Skilled therapy needed for patient to return to prior level of independence Justification of discharge recommendations flow sheet completed: Yes Frequency of therapy:OT Frequency during current admission: 3-5x/wk Intervention / Education needs: ADL training, Balance activities, Functional transfer training, Safety education, UE home exercise program education, Family training as appropriate, and Cognitive re-orientation Education provided: Patient has been educated on Role of OT, OT plan of care, ADL training, Functional transfer training, and Safety education. Individual(s) needs ongoing reinforcement. Short Term Goals / Care Plan: Multi-Disciplinary Problems (from Occupational Therapy) Active Problems Problem: OT Misc Start Date: 06/15/24 Goal Start Date Expected End Date End Date OT STG - Misc 1 06/15/24 06/22/24 -- Goal Details: Patient will complete UE / LE dressing with supervision assistance one time Goal Start Date Expected End Date End Date OT STG - Misc 2 06/15/24 06/22/24 -- Goal Details: Patient will complete grooming x3 tasks with supervision assistance one time Goal Start Date Expected End Date End Date OT STG - Mis 3 06/15/24 06/22/24 -- Goal Details: Patient will complete BUE strengthening HEP with min verbal cues to increase ADL tolerance one time Goal Start Date Expected End Date End Date OT STG - Mis 4 06/15/24 06/22/24 -- Goal Details: Patient will complete functional transfers with supervision assistance using least restrictive device one time Goal Start Date Expected End Date End Date OT STG - Mis 5 06/15/24 06/22/24 -- Goal Details: Patient will complete toileting and toilet transfers with supervision one time If this is the last note, consider this the discharge summary Ton Stanton OT 06/15/24 * Eben Pettit MD - 06/15/2024 12:11 PM CDT Infectious Disease Consult Consulting Physician: Eben Pettit MD. Reason for consult: Ongoing IV antibiotic therapy new admission for syncope Interval history/review of systems Much calmer today Sitting up in chair Afebrile currently Sitter and sister in room Objective: Vitals: 24hr Min/Max: Temp Min: 36.4 ??C (97.6 ??F) Max: 37.2 ??C (99 ??F) Pulse Min: 70 Max: 109 BP Min: 72/37 Max: 124/96 Resp Min: 13 Max: 40 SpO2 Min: 82 % Max: 99 % Most Recent : Vitals: 06/15/24 1030 06/15/24 1045 06/15/24 1050 06/15/24 1144 BP: 98/86 BP Location: Patient Position: Pulse: 91 93 89 Resp: 23 26 (!) 33 Temp: 36.4 ??C (97.6 ??F) TempSrc: Oral SpO2: 99% 95% 95% Weight: Height: Physical Exam: General appearance: alert, cooperative, no distress HEENT: (-)icterus, Oropharnyx is normal, forehead with stitches, site is clean Neck: No palpable LN Lungs: breath sounds normal and symmetric; minimal respiratory effort, no r/w/c Heart: normal S1 and S2, no m/r/g Abdomen: soft without mass, non-tender, +bowel sounds, no HSM Extremities/Skin: no gross deformities, FROM, no new rashes, no ulcerations Vascular: no Edema, pulses present bilaterally Neuro: No focal deficits Psych: Appropriate mood and affect Double-lumen PICC line right upper extremity placed 06/05, site is clean Labs Reviewed. Recent Labs Lab Units 06/11/24 0107 WBC K/cumm 6.0 6.3 HEMOGLOBIN g/dL 11.5* 11.6* HEMATOCRIT % 35.8 35.8 PLATELETS K/cumm 314 286 Recent Labs Lab Units 06/15/24 0609 06/14/24 0435 06/13/24 0259 BUN SERUM mg/dL 16 11 11 CREATININE mg/dL 0.72 0.67 0.64 Lab Results Component Value Date ALT 5 (L) 06/08/2024 AST 21 06/08/2024 ALKPHOS 217 (H) 06/08/2024 BILITOT 0.5 06/08/2024 Cultures Blood culture 06/13 no growth so far Urinalysis with no significant signs of infection on 06/12 Imaging CTA right upper extremity with no evidence of hematoma or drainable fluid collection. Patent arterial system. No evidence of DVT Assessment: MSSA bacteremia Called microlab during last admission, [facility] blood cultures 05/25 NG. blood cultures were positive for Staph aureus 05/21 and 05/22 Documented at outside hospital, unknown date so far will follow-up with [facility]. 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 Discussed case with Dr. Neli Hutchinson during last admission She underwent CHANCE, with no visible valve vegetation. Repeat blood cultures 05/30 no growth She has AICD in place. There was a clot in [place], probably an appendage clot, hence synchronized Cardioversion was canceled on last admission. Electrophysiology/Cardiology team was following and there was plan for Bi V ICD after completing antibiotic course. Blood cultures were negative at outside hospital from 05/25, blood cultures negative at this facility from 05/30 CT abdomen and pelvis 06/01 With no significant infectious findings Nausea vomiting/syncope due to VF/fall Cardiology is following Dislodged catheter/lead.. PA Atrial fibrillation CHF GERD Hypertension Obstructive sleep apnea Thyroid disease Intellectual disability Plan: Continue on Ancef to complete therapy till 06/22, due to presence of AICD. blood cultures from 05/30 no growth. New blood cultures were ordered due to fever 06/13 . Afebrile now Urinalysis from 06/12 with no signs of infection IR guided PICC line placement on 06/05. Right upper extremity, Dopplers with no DVT, CTA with no hematoma/fluid collection. Will repeat chest x-ray Follow-up on blood cultures from 06/13, no growth so far Will follow. Thanks for Consulting Infectious Diseases. Will follow. Eben Pettit MD 06/15/2024 [facility] Office: [phone] Fax: [phone] Voice recognition software was used to complete this document, therefore, hand spray operator variances may occur. * Maria Luisa Thorpe, PT - 06/15/2024 10:22 AM CDT Physical Therapy PT PROGRESS NOTE PATIENT'S NAME:Lei Rodriguez :1960 AGE:63 y.o. ROOM:[facility]/[place] [address] Past Medical History: Diagnosis Date A-fib (CMS/HCC) (HCC) CHF (congestive heart failure) (CMS/HCC) (HCC) Diabetes mellitus (HCC) GERD (gastroesophageal reflux disease) Hypertension Intellectual disability OAB (overactive bladder) Sleep apnea Thyroid disease Past Surgical History: Procedure Laterality Date CARDIAC DEFIBRILLATOR PLACEMENT CHOLECYSTECTOMY INSERT / REPLACE / REMOVE PACEMAKER IR PICC LINE PLACEMENT > 5 YEARS N/A 06/05/2024 OTHER SURGICAL HISTORY 05/31/2024 CHANCE/CARDIOVERSION Patient Active Problem List Diagnosis Endocarditis SOB (shortness of breath) Acute on chronic systolic congestive heart failure (CMS/HCC) (HCC) Neck pain Hyponatremia Chronic a-fib (CMS/HCC) ([facility]) Controlled type 2 diabetes mellitus with chronic kidney disease, with long-term current use of insulin ([facility]) Hypothyroidism JOSE (obstructive sleep apnea) Diabetes mellitus with hyperglycemia ([facility]) ([facility]) Traumatic hematoma of right upper arm Hypotension due to drugs Ventricular tachycardia ([facility]) Chronic diastolic congestive heart failure ([facility]) ([facility]) Endocarditis Urinary frequency Gastroesophageal reflux disease without esophagitis Paroxysmal atrial fibrillation ([facility]) ([facility]) Major depressive disorder CKD (chronic kidney disease) TIME IN: 1022 TIME OUT: 1050 SUBJECTIVE I guess I can walk MENTAL STATUS/ORIENTATION: Alert and oriented x4 PAIN: Pre-therapy pain level: none Pain location: Pain intervention: Post-therapy pain level/response to intervention: none OBJECTIVE PRECAUTIONS: fall, bed / chair alarm, and elopement APPEARANCE/POSTURE: sitting up in the bed , sister in room, IV Infusing, sitter in room VITAL SIGNS: Resting BP: 120/92 Post-activity BP: 98/86 Resting heart rate: 87 Post-activity heart rate: 92 Resting O2 sat: 96% on RA Post-activity O2 sat: 96% MOBILITY DOCUMENTATION: Bed Mobility/Transfers: sit to stand from bed SBA, stand pivot to chair with SBA, patient worried about her IV line Gait: gait with her own ww 150 feet and then 50 feet with CGA, sister pushing IV pole, patient resting in chairs in lobby TREATMENT: B LE sitting ex x 15 reps with short rest between ex and verbal and visual cues to complete all APPEARANCE/POSTURE (end of session): sitting up in bedside chair with IV infusing, has pull up on ,sister and sitter in room, call light in reach, patient given newspaper to read HANDOFF: Verbal handoff given to nurse, Molly. ALARMS: Chair alarm in place / active EDUCATION:therapeutic exercises and gait training RESPONSE TO EDUCATION: needs reinforcement and verbalizes understanding ASSESSMENT Activity tolerance/response to P.T.: tolerated well, cooperative and pleasant Barriers to learning: Emotional Barriers to discharge: Limited family support and Medical complications Patient continues progressing toward previously set goals which remain appropriate at this time. PLAN PT Discharge Recommendations this date: PT Recommendation/Plan: [facility] Patient at high risk for: Falls, Injury due to decreased ability to care for self, Injury due to reduced functional status, Injury at home as patient has not returned to prior level of function PT Frequency during current admission: 3-5x/wk CARE PLAN Multi-Disciplinary Problems (from Physical Therapy) Active Problems Problem: PT Misc Start Date: 06/14/24 Goal Start Date Expected End Date End Date PT LTG - perform sup to sit with mod indep 06/14/24 06/21/24 -- progressing Goal Start Date Expected End Date End Date PT LTG - perform sit to stand with mod indep 06/14/24 06/21/24 -- progressing Goal Start Date Expected End Date End Date PT LTG -perform gait with walker 150 feet mod indep 06/14/24 06/21/24 -- progressing Goal Start Date Expected End Date End Date PT LTG -perform B LE ex x 20 reps with supervision 06/14/24 06/21/24 -- progressing If this is the last note, please consider this the discharge summary. * Mell Curran MD - 06/15/2024 9:57 AM CDT DAILY PROGRESS NOTE C/C:Fall and passed out Interval History: weaned off Precedex drip. BS 289, after eating food brought by family Consults: Ty Mcfarland MD Singh, Inderjit, MD SUBJECTIVE: Complaints: Unable to obtain as she is reluctant to talk ROS: OBJECTIVE: Vitals: Temp (24hrs), Av.9 ??C (98.5 ??F), Min:36.6 ??C (97.8 ??F), Max:37.2 ??C (99 ??F) Vitals: 06/15/24 0403 06/15/24 0500 06/15/24 0600 06/15/24 0735 BP: 115/63 97/59 BP Location: Patient Position: Pulse: 77 74 Resp: 17 15 Temp: 36.6 ??C (97.8 ??F) 37 ??C (98.6 ??F) TempSrc: Oral Axillary SpO2: 90% 90% Weight: Height: LDA: PICC Double Lumen 06/05/24 Non-tunneled Power #1 Red, #2 Purple, Right Basilic;Upper arm (Active) Placement Date/Time: 06/05/24 1505 Catheter Time Out Checklist Completed: Yes Hand Hygiene Performed: Yes Site Prep: Chlorhexidine Site Prep Agent has Completely Dried Before Insertion: Yes All 5 Sterile Barriers or Appropriate Barriers Used (Gl... Number of days: 7 I/O: Intake/Output Summary (Last 24 hours) at 06/15/2024 0957 Last data filed at 06/15/2024 0855 Gross per 24 hour Intake 1182 ml Output 1100 ml Net 82 ml Physical Exam General: Up in chair, awake,alert,on RA, NAD SHEENT:Skin warm,dry,no rashes. No icterus,no cyanosis,no pallor,EOMI. Neck:Supple Respi:Slightly diminished breath sounds tamica Cardio:RRR,no murmur GI:Abdomen obese,soft,bowel sounds +,non tender,not distended. Extre:No edema,no cyanosis,no pallor Neuro:Up in chair,reluctant to talk , moving all extremities Psych:No agitation. Laboratory: Recent Results (from the past 24 hour(s)) POCT glucose Collection Time: 06/14/24 12:23 PM Result Value Ref Range Glucose, POC 187 70 - 199 mg/dL Urinalysis reflex to microscopic and culture Urine, clean voided Collection Time: 06/14/24 2:15 PM Specimen: Urine, clean voided Result Value Ref Range Color, ur Yellow Yellow Clarity, ur Clear Clear Specific gravity, ur 1.019 1.003 - 1.030 pH, urine 6.5 Protein, ur ql Negative Negative Glucose, ur ql 3+ (A) Negative Ketones, ur Negative Negative Bilirubin, ur Negative Negative Blood, ur Negative Negative Urobilinogen, ur <2.0 <2.0 mg/dL Nitrite, ur Negative Negative Leukocyte esterase, ur Negative Negative UA reflex comment Reflex conditions for microscopic UA and culture not met. POCT glucose Collection Time: 06/14/24 5:46 PM Result Value Ref Range Glucose, POC 233 (H) 70 - 199 mg/dL POCT glucose Collection Time: 06/14/24 8:43 PM Result Value Ref Range Glucose, POC 221 (H) 70 - 199 mg/dL Magnesium Collection Time: 06/15/24 6:09 AM Result Value Ref Range Magnesium 1.9 1.4 - 2.5 mg/dL Renal function panel Collection Time: 06/15/24 6:09 AM Result Value Ref Range Sodium 136 135 - 145 mmol/L Potassium, pl 4.1 3.3 - 4.9 mmol/L Chloride 103 97 - 110 mmol/L CO2 26 22 - 32 mmol/L Anion gap 7 2 - 15 mmol/L BUN 16 6 - 25 mg/dL Creatinine 0.72 0.60 - 1.10 mg/dL Glucose 137 70 - 199 mg/dL Calcium 8.9 8.5 - 10.3 mg/dL Phosphorus, pl 4.0 2.3 - 4.5 mg/dL Albumin 3.0 (L) 3.5 - 5.0 g/dL eGFR Collection Time: 06/15/24 6:09 AM Result Value Ref Range eGFR >90 >=60 mL/min/1.73 m2 POCT glucose Collection Time: 06/15/24 8:10 AM Result Value Ref Range Glucose, POC 123 70 - 199 mg/dL Radiology: Scheduled Medications: carvediloL, 25 mg, oral, BID with meals (bkfst, dinner) ceFAZolin, 2 g, intravenous, Q8H GALINA cholecalciferol, 5,000 Units, oral, Daily docusate sodium, 100 mg, oral, BID escitalopram, 5 mg, oral, Daily ferrous sulfate, 65 mg of elemental iron, oral, Daily with breakfast insulin glargine, 0.15 Units/kg, subcutaneous, Nightly insulin lispro, 0-4 Units, subcutaneous, Nightly insulin lispro, 0-5 Units, subcutaneous, TID with meals insulin lispro, 0.05 Units/kg, subcutaneous, TID with meals levothyroxine, 75 mcg, oral, QAM magnesium oxide, 400 mg, oral, Daily multivit zrlmapes-deba-IK-calcium, 1 tablet, oral, Daily nortriptyline, 10 mg, oral, Daily pantoprazole DR, 40 mg, oral, Daily potassium chloride ER, 40 mEq, oral, Daily rivaroxaban, 20 mg, oral, Daily with dinner sacubitriL-valsartan, 1 tablet, oral, BID Current Facility-Administered Medications: albuterol HFA (PROVENTIL HFA,VENTOLIN HFA,PROAIR HFA) 90 mcg/actuation inhaler 2 puff, 2 puff, inhalation, Q6H PRN (RT), Brother, Dilan Rodriguez MD carvediloL (COREG) tablet 25 mg, 25 mg, oral, BID with meals (bkfst, dinner), Rachel Barnes NP, 25 mg at 06/14/24 180 ceFAZolin (ANCEF) 2,000 mg/100 mL in dextrose (premix) 2 g, 2 g, intravenous, Q8H GALINA, Rachel Barnes NP, Last Rate: 200 mL/hr at 06/14/246, 2 g at 06/14/242325 cholecalciferol (VITAMIN D-3) tablet 5,000 Units, 5,000 Units, oral, Daily, Rachel Barnes NP, 5,000 Units at 06/14/24922 dexmedeTOMIDine in 0.9% sodium chloride (PRECEDEX) 400 mcg/100 mL (4 mcg/mL) infusion (premix), 0-0.7 mcg/kg/hr, intravenous, Titrated, Coleen Samuels MD, Stopped at 06/14/24 1730 dextrose oral liquid liquid 15 g, 15 g, oral, Q15 Min PRN OR dextrose (D10W) 10% bolus 250 mL, 250 mL, intravenous, Q15 Min PRN, Rachel Barnes NP docusate sodium (COLACE) capsule 100 mg, 100 mg, oral, BID, Rachel Barnes NP, 100 mg at 06/14/24 2100 escitalopram (LEXAPRO) tablet 5 mg, 5 mg, oral, Daily, Coleen Samuels MD, 5 mg at 06/14/24922 ferrous sulfate delayed release tablet 65 mg of elemental iron, 65 mg of elemental iron, oral, Daily with breakfast, Rachel Barnes NP, 65 mg of elemental iron at 06/14/24922 fluticasone propionate (FLONASE) 50 mcg/actuation nasal spray 1 spray, 1 spray, each nostril, DailyPRN, Rachel Barnes NP glucagon injection 1 mg, 1 mg, intramuscular, Q30 Min PRN, Rachel Barnes NP insulin glargine (LANTUS, SEMGLEE) 100 unit/mL injection 17 Units, 0.15 Units/kg, subcutaneous, Nightly, Rachel Barnes, PAN DEVULCANIZER, 17 Units at 06/14/242100 insulin lispro (HumaLOG, ADMELOG) 100 unit/mL injection 0-4 Units, 0-4 Units, subcutaneous, Nightly, Rachel Barnes, PAN DEVULCANIZER, 1 Units at 06/14/242099 insulin lispro (HumaLOG, ADMELOG) 100 unit/mL injection 0-5 Units, 0-5 Units, subcutaneous, TID with meals, Rachel Barnes, PAN DEVULCANIZER, 2 Units at 06/14/241804 insulin lispro (HumaLOG, ADMELOG) 100 unit/mL injection 6 Units, 0.05 Units/kg, subcutaneous, TID with meals, Rachel Barnes, PAN DEVULCANIZER, 6 Units at 06/14/241804 levothyroxine (SYNTHROID) tablet 75 mcg, 75 mcg, oral, QAM, Rachel Barnes, PAN DEVULCANIZER, 75 mcg at 06/15/24602 magnesium oxide (MAG-OX) tablet 400 mg, 400 mg, oral, Daily, Seth Flores MD, 400 mg at 06/14/24922 multivit ayastlnt-oahv-IQ-calcium (THERA-M) tablet 1 tablet, 1 tablet, oral, Daily, Rachel Barnes PAN DEVULCANIZER, 1 tablet at 06/14/24922 nortriptyline (PAMELOR) capsule 10 mg, 10 mg, oral, Daily, Racehl Barnes, PAN DEVULCANIZER, 10 mg at 06/14/24922 OLANZapine (ZyPREXA) 5 mg in sterile water 1 mL (5 mg/mL) syringe, 5 mg, intramuscular, Q6H PRN, Mell Curran MD pantoprazole DR (PROTONIX) extended release tablet 40 mg, 40 mg, oral, Daily, Rachel Barnes,PAN DEVULCANIZER, 40 mg at 06/14/24922 potassium chloride ER (KLOR-CON) extended release tablet 40 mEq, 40 mEq, oral, Daily, Coleen Samuels MD, 40 mEq at 09/05/24 0923 rivaroxaban (XARELTO) tablet 20 mg, 20 mg, oral, Daily with dinner, Rachel Barnes NP, 20 mgat 06/14/24 1805 sacubitriL-valsartan (ENTRESTO) 24-26 mg tablet 1 tablet, 1 tablet, oral, BID, Rachel Barnes, PAN DEVULCANIZER, 1 tablet at 06/14/24 2100 Continuous Medications: dexmedeTOMIDine, 0-0.7 mcg/kg/hr, Last Rate: Stopped (06/14/24 1730) PRN Medications: albuterol HFA dextrose OR dextrose fluticasone propionate glucagon OLANZapine Hospital course: 63 y.o. Morbidly obese [place] pt with a PMHx significant for A-fib, CHF, DM II, GERD, HTN, Intellectualdisability, OAB, Sleep apnea, thyroid disease and endocarditis Was brought to ED with chief complaint of fall and passed out ASSESSMENT/PLAN: All diagnoses were present on admission unless otherwise stated. Principal Problem: --Syncope due to Ventricular tachycardia- AICD interrogated at [facility], noted 5 discharges on the report. Troponins trended 0.018, 0.030 ( 0.000-0.034) Patient currently in Sinus rhythm on Telemetry. Cardiology has seen and has stopped several medications including Tikosyn. Decreased Lexapro to 5 mg a day Active problems: --DM II- Accu check ACHS cover with SSI, continue Lantus and basal meal time Humalog BS 120-280 Will give extra dose Humalog for 289 BS, advised sister not to bring food from outside --Chronic Reduced ejection fraction heart failure- cardiomegaly noted on chest x-ray, OSH BNP 1600 (19.9-100) no noted edema continue Lasix 40 mg daily, Coreg 25 mg BID and Entresto 24/26 BID, last Echo 05/30/24 EF 30% diastolic dysfunction. --Recent H/O Endocarditis- Continue Ancef 2g every 8 hours for 7 more days --Hypothyroidism- Continue Levothyroxine 75 mcg daily --Urinary frequency-Continue Mirabeqron 25 mg daily --Hypotension- continue midodrine 5 mg TID. Now resolved --GERD-Continue Protonix 40 mg daily --A-fib- Cardizem has been discontinued . Cardiology is following Continue Xarelto 20 mg daily with dinner --CKD stage II- Stable. consulted Nephrology --Depression- Decreased Lexapro dose to 5 mg due to VTach Continue Nortriptyline 10 mg daily --Agitation 06/12: On Precedex drip. H/O Intellectual disability, developmental delay+. Consulted and D/W Psych.Recommended prn IM Zyprexa 5 mg q 6 hours and wean off Precedex Family did not agree for Zyprexa on 06/13 06/14 Sisters agreed for prn Zyprexa IM 06/15 Weaned off Precedex drip and started on prn IM Zyprexa 06/14 UA neg 06/14 CT Head neg --Headache following syncope with scalp lac requiring suture : 06/14 CT Head neg DVT Prophylaxis with Xarelto Code status: Full code D/W RN D/W Sister FF Medical Decision Making complexity: Moderate Expected date of discharge: ? Barriers to discharge:Acceptance from new SNF Discharge disposition: nursing home facility Mell Curran MD 06/15/2024 9:57 AM [facility] [place] * Seth Flores MD - 06/15/2024 9:36 AM CDT Nephrology Progress Note [facility] SUBJECTIVE 06/15 Out of restraints. Doing better. Labs stable. 06/14 Calmer today. Remains in restraints. K and mg okay. Incontinent of urine. No further dysrhythmia. All labs and data reviewed. 06/13 Appears comfortable. All labs and data reviewed. K 3.9, mg 2.0. No further dysrhythmia reported. Uncooperative and agitated earlier. 06/12 Overall stable. All labs and data reviewed. Bp soft, confused. 2 plus blood in urine. OBJECTIVE Vitals: Vitals: 06/15/24 1900 06/15/24192406/15/24193706/15/241999 BP: 122/55 110/64 BP Location: Patient Position: Pulse: 88 89 86 Resp: 24 29 Temp: 37.3 ??C (99.1 ??F) TempSrc: Oral SpO2: 93% 96% Weight: Height: Intake/Output Summary (Last 24 hours) at 06/15/2024 2136 Last data filed at 06/15/2024 0855 Gross per 24 hour Intake 702 ml Output 1100 ml Net -398 ml REVIEW OF SYSTEMS Review of Systems Constitutional: Negative. HENT: Negative. Eyes: Negative. Respiratory: Negative. Cardiovascular: Negative. Gastrointestinal: Negative. Genitourinary: Negative. Musculoskeletal: Negative. Skin: Negative. Allergic/Immunologic: Negative. Hematological: Negative. All other systems reviewed and are negative. PHYSICAL EXAM Physical Exam Constitutional: Appears well-developed. HENT: wnl Head: Normocephalic. Eyes: Pupils are equal, round, and reactive to light. Neck: Normal range of motion. Neck supple. Cardiovascular: Normal rate. Pulmonary/Chest: Effort normal and breath sounds normal. Abdominal: Soft. Musculoskeletal: Normal range of motion. Neurological: Alert, oriented. Skin: Skin is warm. Nursing note and vitals reviewed. MEDICATIONS Current Facility-Administered Medications: albuterol HFA (PROVENTIL HFA,VENTOLIN HFA,PROAIR HFA) 90 mcg/actuation inhaler 2 puff, 2 puff, inhalation, Q6H PRN (RT), BrotherDilan MD carvediloL (COREG) tablet 25 mg, 25 mg, oral, BID with meals (bkfst, dinner), Rachel Barnes NP, 25 mg at 06/15/24 1733 ceFAZolin (ANCEF) 2,000 mg/100 mL in dextrose (premix) 2 g, 2 g, intravenous, Q8H GALINA, Rachel Barnes NP, Last Rate: 200 mL/hr at 06/15/24 1734, 2 g at 06/15/24 1734 cholecalciferol (VITAMIN D-3) tablet 5,000 Units, 5,000 Units, oral, Daily, Rachel Barnes NP, 5,000 Units at 06/15/24 0957 dextrose oral liquid liquid 15 g, 15 g, oral, Q15 Min PRN OR dextrose (D10W) 10% bolus 250 mL, 250 mL, intravenous, Q15 Min PRN, Rachel Barnes NP docusate sodium (COLACE) capsule 100 mg, 100 mg, oral, BID, Rachel Barnes NP, 100 mg at 06/15/242054 escitalopram (LEXAPRO) tablet 5 mg, 5 mg, oral, Daily, Coleen Samuels MD, 5 mg at 06/15/2456 ferrous sulfate delayed release tablet 65 mg of elemental iron, 65 mg of elemental iron, oral, Daily with breakfast, Rachel Barnes NP, 65 mg of elemental iron at 06/15/24 0956 fluticasone propionate (FLONASE) 50 mcg/actuation nasal spray 1 spray, 1 spray, each nostril, DailyPRN, Rachel Barnes NP glucagon injection 1 mg, 1 mg, intramuscular, Q30 Min PRN, Rachel Barnes NP insulin glargine (LANTUS, SEMGLEE) 100 unit/mL injection 17 Units, 0.15 Units/kg, subcutaneous, Nightly, Rachel Barnes NP, 17 Units at 06/15/24 205 insulin lispro (HumaLOG, ADMELOG) 100 unit/mL injection 0-4 Units, 0-4 Units, subcutaneous, Nightly, Rachel Barnes NP, 1 Units at 06/14/24 2100 insulin lispro (HumaLOG, ADMELOG) 100 unit/mL injection 0-5 Units, 0-5 Units, subcutaneous, TID with meals, Rachel Barnes NP, 3 Units at 06/15/24 1402 insulin lispro (HumaLOG, ADMELOG) 100 unit/mL injection 6 Units, 0.05 Units/kg, subcutaneous, TID with meals, Rachel Barnes NP, 6 Units at 06/15/24 1733 levothyroxine (SYNTHROID) tablet 75 mcg, 75 mcg, oral, QAM, Rachel Barnes NP, 75 mcg at 06/15/24 0603 magnesium oxide (MAG-OX) tablet 400 mg, 400 mg, oral, Daily, Seth Flores MD, 400 mg at 06/15/24 0958 multivit vvhhgumk-fwgo-PH-calcium (THERA-M) tablet 1 tablet, 1 tablet, oral, Daily, Rachel Barnes NP, 1 tablet at 06/15/24 0957 nortriptyline (PAMELOR) capsule 10 mg, 10 mg, oral, Daily, Rachel Barnes NP, 10 mg at 06/15/24 0956 OLANZapine (ZyPREXA) 5 mg in sterile water 1 mL (5 mg/mL) syringe, 5 mg, intramuscular, Q6H PRN, Mell Curran MD pantoprazole DR (PROTONIX) extended release tablet 40 mg, 40 mg, oral, Daily, Rachel Barnes NP, 40 mg at 06/15/24 0956 potassium chloride ER (KLOR-CON) extended release tablet 40 mEq, 40 mEq, oral, Daily, Coleen Samuels MD, 40 mEq at 06/15/24 0956 rivaroxaban (XARELTO) tablet 20 mg, 20 mg, oral, Daily with dinner, Rachel Barnes NP, 20 mgat 06/15/24 1733 sacubitriL-valsartan (ENTRESTO) 24-26 mg tablet 1 tablet, 1 tablet, oral, BID, Rachel Barnes NP, 1 tablet at 06/15/242054 Lab/Radiology/Diagnostic Review: Recent Results (from the past 24 hour(s)) Magnesium Collection Time: 06/15/24 6:09 AM Result Value Ref Range Magnesium 1.9 1.4 - 2.5 mg/dL Renal function panel Collection Time: 06/15/24 6:09 AM Result Value Ref Range Sodium 136 135 - 145 mmol/L Potassium, pl 4.1 3.3 - 4.9 mmol/L Chloride 103 97 - 110 mmol/L CO2 26 22 - 32 mmol/L Anion gap 7 2 - 15 mmol/L BUN 16 6 - 25 mg/dL Creatinine 0.72 0.60 - 1.10 mg/dL Glucose 137 70 - 199 mg/dL Calcium 8.9 8.5 - 10.3 mg/dL Phosphorus, pl 4.0 2.3 - 4.5 mg/dL Albumin 3.0 (L) 3.5 - 5.0 g/dL eGFR Collection Time: 06/15/24 6:09 AM Result Value Ref Range eGFR >90 >=60 mL/min/1.73 m2 POCT glucose Collection Time: 06/15/24 8:10 AM Result Value Ref Range Glucose, POC 123 70 - 199 mg/dL POCT glucose Collection Time: 06/15/24 11:41 AM Result Value Ref Range Glucose, POC 289 (H) 70 - 199 mg/dL POCT glucose Collection Time: 06/15/24 4:31 PM Result Value Ref Range Glucose, POC 145 70 - 199 mg/dL POCT glucose Collection Time: 06/15/24 7:37 PM Result Value Ref Range Glucose, POC 147 70 - 199 mg/dL Recent Labs Lab Units 06/14/24 1415 06/12/24 0646 CLARITY U Clear Clear COLOR U Yellow Yellow KETONES UR Negative Negative NITRITE UR Negative Negative SPEC GRAV U 1.019 1.026 UROBILINOGEN UR mg/dL <2.0 <2.0 WBC UR QT /HPF -- 0-5 CTA Upper Extremity Right W WO Contrast Result Date: 06/07/2024 Narrative: EXAMINATION: CTA UPPER EXTREMITY RIGHT W WO CONTRAST HISTORY: Right upper arm swelling ORDER DATE: 06/06/2024 10:40 PM TECHNIQUE: Imaging protocol: Computed tomographic angiography of the right upper extremity with contrast, including non-contrast images if performed. 3D rendering (Not supervised by radiologist): MIP and/or 3D reconstructed images were created by the technologist. Contrast material: OPTIRAY 350; Contrast volume: 119 ml IV COMPARISON: CT CHEST PE (CTA) W CONTRAST 05/30/2024 FINDINGS: Tubes, catheters and devices: There is a PICC line inserted through the right basilicvein at the level of the distal arm. There is mild fat stranding within the anterior distal arm, without sizable hematoma or drainable fluid collection. No evidence of active extravasation. Pulmonaryarteries: There is a partially visualized curvilinear metallic structure within the right pulmonaryartery, similar to prior. Right subclavian artery: No acute findings. No occlusion or significant stenosis. Axillary artery: No acute findings. No occlusion or significant stenosis. Brachial artery: No acute findings. No occlusion or significant stenosis. Radial artery: No acute findings. No occlusion or significant stenosis. Ulnar artery: No acute findings. No occlusion or significant stenosis. Veins: Peripheral intravenous access is seen within the cephalic vein at the level of the antecubital fossa. Impression: 1. Patent arterial system of the right upper extremity as detailed above. 2. No evidence of hematoma or drainable fluid collection Stat report by [facility] Electronically signed by: Andrea Abernathy M.D. ECG 12 lead Result Date: 06/06/2024 Narrative: Vent Rate: 78 bpm RR Interval: 763 msec [place] Interval: 0 msec QRS Duration: 154 msec QT Interval: 473 msec QTC Interval: 506 msec P-R-T [place]: 0 - 23 - 94 degrees IMPRESSION: ATRIAL FIBRILLATION Occasional ventricular pacing INDETERMINATE AXIS Left bundle branch block ABNORMAL ECG Electronically Signed By: Dr. Shiloh Muhammad [facility] US Vein Duplex Upper Extremity Right Limited, Unilateral Result Date: 06/06/2024 Narrative: EXAMINATION: US VEIN DUPLEX UPPER EXTREMITY RIGHT LIMITED, UNILATERAL HISTORY: The patient is a 63-year-old female who presents with swelling in the right upper extremity. TECHNIQUE: Rightupper extremity venous duplex study was performed with hahn scale imaging, color Doppler imaging and spectral waveform analysis. FINDINGS: There is normal compressibility and phasicity in both internal jugular and subclavian veins as well as the right axillary, brachial, radial, ulnar, cephalic andbasilic veins. Imaging of these veins reveals no thrombus within the lumen. Impression: There is no evidence of acute DVT in the right upper extremity. Electronically signed by: Conrad Davila M.D. XR Chest Pa Lateral 2 Views Result Date: 06/06/2024 Narrative: EXAMINATION: XR CHEST PA LATERAL 2 VIEWS HISTORY: The patient is a 63-year-old female who has had placement of a PICC line. Comparison made with the previous study dated 12/26/2020. TECHNIQUE: AP and lateral view of the chest. FINDINGS: The distal tip of the right PICC line is in the distal superior vena cava. Cardiomegaly with aortic atherosclerosis. No failure. No active infiltrate. Impression: No failure. Electronically signed by: Conrad Davila M.D. IR PICC Line Placement Over 5 Years of Age Result Date: 06/05/2024 Narrative: EXAMINATION: IR PICC LINE PLACEMENT OVER 5 YEARS OF AGE DATE: 06/05/2024 2:05 PM HISTORY:sepsis Unsuccessful attempt at bedside PICC line placement by in-house vascular team. TECHNIQUE: The risks, benefits, and alternatives were discussed and informed consent was obtained. Prior to beginn ing the procedure, universal protocol was performed to confirm the patient's identity and the planned procedure. Maximum sterile barriers including cap, mask, hand hygiene, sterile gloves, sterile gown, large sterile drape, sterile gel, sterile ultrasound probe cover, and 2% chlorhexidine for cutaneous antisepsis were used. The skin over the right basilic vein was sterilely prepped, draped, and infiltrated with lidocaine. Prior to the procedure, this target vessel was evaluated by ultrasound and an image of the patent vessel demonstrating vessel patency was recorded in the patient's electronic medical record. This vessel was then accessed using real-time ultrasound guidance. A guidewire waspassed centrally using fluoroscopic guidance. The intravascular length from the access site to the right atrium was assessed. After dilating the tract, a 45 cm, 5-[place] dual-lumen PICC was inserted through the peel-away sheath. The peel-away sheath was then removed. The catheter was flushed and sec ured in place. A sterile dressing was applied. The final fluoroscopic image demonstrates the catheter with its tip at the cavoatrial junction. No complications were identified. The catheter is ready for immediate use. When treatment is completed, this catheter can be removed at the bedside according to standard hospital protocol. Impression: Successful PICC placement using ultrasound guidance. Electronically signed by: Blaine Nash M.D. XR Chest 1 View Result Date: 06/05/2024 Narrative: EXAMINATION: XR CHEST 1 VIEW HISTORY: The patient is a 63-year-old female who has had anattempted PICC line placement. Comparison made with the previous study dated 05/29/2024. TECHNIQUE:AP portable view of the chest. FINDINGS: Cardiomegaly with aortic atherosclerosis. No failure. No active infiltrate. Impression: Cardiomegaly. Electronically signed by: Conrad Davila M.D. ECG 12 lead Result Date: 06/02/2024 Narrative: Vent Rate: 86 bpm RR Interval: 697 msec OH Interval: 0 msec QRS Duration: 157 msec QT Interval: 470 msec QTC Interval: 513 msec P-R-T [place]: 0 - 38 - 88 degrees IMPRESSION: ATRIAL FIBRILLATION WITH ABERRANT CONDUCTION OR VENTRICULAR PREMATURE COMPLEXES LEFT BUNDLE BRANCH BLOCK [120+ ms QRS DURATION, 80+ ms Q/S IN V1/V2, 85+ ms R IN I/aVL/V5/V6] ABNORMAL ECG Compared to prior EKG, ventricular pacing is no longer present Electronically Signed By: Antonio Carlos MD ECG 12 lead Result Date: 06/02/2024 Narrative: Vent Rate: 76 bpm RR Interval: 782 msec OH Interval: 0 msec QRS Duration: 158 msec QT Interval: 494 msec QTC Interval: 525 msec P-R-T [place]: 0 - 116 - 120 degrees IMPRESSION: ATRIAL FIBRILLATION WITH demand ventricular pacemaker MARKED RIGHT AXIS DEVIATION [QRS AXIS > 100] INTRAVENTRICULAR CONDUCTION DELAY [130+ ms QRS DURATION] ABNORMAL ECG Compared to prior EKG, demand ventricular pacing is new Electronically Signed By: Antonio Carlos MD CT Abdomen Pelvis W Contrast Result Date: 06/01/2024 Narrative: EXAMINATION: CT ABDOMEN PELVIS W CONTRAST DATE: 06/01/2024 1:05 PM HISTORY: Sepsis. COMPARISON: 02/28/2017. TECHNIQUE: Transaxial computed tomographic images of the abdomen and pelvis were obtained after the administration of 119 mL of Optiray 350 intravenously. Multiplanar coronal and sagittal images were reformatted. FINDINGS: Similar scarring in the left lung base unchanged since 2017. There is cardiomegaly and mosaic attenuation in the lung bases suggestive of pulmonary edema. There is a small hiatal hernia. Cholecystectomy. Diffuse hepatic steatosis. The spleen, pancreas, and adrenal glands are unremarkable. Kidneys are unremarkable. No hydroureteronephrosis. Unopacified bladder is unremarkable. Uterus and adnexal structures are unremarkable. No free fluid in the pelvis. There is diverticulosis. No evidence of diverticulitis. The small bowel is unremarkable. Mild atherosclerotic calcifications in the aorta and branch vessels. Subcutaneous tissues are unremarkable. No pathologic by size criteria lymphadenopathy. Mild bilateral sacroiliac joint arthrosis. No acute fracture. No pathologic by size criteria lymphadenopathy. Impression: 1. Mosaic attenuation in the lung bases suggestive of interstitial pulmonary edema. 2. Diffuse hepatic steatosis. 3. Small hiatal hernia. 4. Trace left pleural effusion. 5. Additional chronic or incidental findings as above. Electronically signed by: Azeem Robins II, D.O. ECG 12 lead Result Date: 06/01/2024 Narrative: Vent Rate: 102 bpm RR Interval: 584 msec OH Interval: 0 msec QRS Duration: 149 msec QT Interval: 387 msec QTC Interval: 446 msec P-R-T [place]: 0 - 115 - 66 degrees IMPRESSION: ATRIAL FIBRILLATION WITH RAPID VENTRICULAR RESPONSE WITH ABERRANT CONDUCTION OR VENTRICULAR PREMATURE COMPLEXES INDETERMINATE AXIS INTRAVENTRICULAR CONDUCTION DELAY [130+ ms QRS DURATION] ABNORMAL ECG NO CHANGE FROM PREVIOUS TRACING NOTED Electronically Signed By: Antonio Carlos MD ECG 12 lead Result Date: 06/01/2024 Narrative: Vent Rate: 83 bpm RR Interval: 716 msec OH Interval: 0 msec QRS Duration: 154 msec QT Interval: 409 msec QTC Interval: 449 msec P-R-T [place]: 0 - 123 - 189 degrees IMPRESSION: ATRIAL FIBRILLATION INTRAVENTRICULAR CONDUCTION DELAY LATERAL MYOCARDIAL INFARCTION , OF INDETERMINATE AGE Electronically Signed By: Cristino Kingsley MD, [facility] ECG 12 lead Result Date: 05/31/2024 Narrative: Vent Rate: 74 bpm RR Interval: 810 msec OH Interval: 0 msec QRS Duration: 151 msec QT Interval: 449 msec QTC Interval: 476 msec P-R-T [place]: 0 - 102 - 146 degrees IMPRESSION: VENTRICULAR PACED RHYTHM Electronically Signed By: Cristino Kingsley MD, [facility] ECG 12 lead Result Date: 05/31/2024 Narrative: Vent Rate: 76 bpm RR Interval: 785 msec OH Interval: 0 msec QRS Duration: 150 msec QT Interval: 471 msec QTC Interval: 501 msec P-R-T [place]: 0 - 80 - 97 degrees IMPRESSION: ATRIAL FIBRILLATION WITH ABERRANT CONDUCTION OR VENTRICULAR PREMATURE COMPLEXES INTRAVENTRICULAR CONDUCTION DELAY [130+ ms QRS DURATION] ABNORMAL ECG Electronically Signed By: Dr. Shiloh Muhammad [facility] ECG 12 lead Result Date: 05/30/2024 Narrative: Vent Rate: 109 bpm RR Interval: 548 msec OH Interval: 0 msec QRS Duration: 149 msec QT Interval: 398 msec QTC Interval: 462 msec P-R-T [place]: 0 - 96 - 89 degrees IMPRESSION: ATRIAL FIBRILLATION WITH RAPID VENTRICULAR RESPONSE BORDERLINE RIGHT AXIS DEVIATION [QRS AXIS > 90] INTRAVENTRICULAR CONDUCTION DELAY [130+ ms QRS DURATION] ABNORMAL ECG Unchanged compared to an EKG done earlier on May 30, 2024 Electronically Signed By: Dr. Shiloh Muhammad [facility] CT Chest WO Contrast Result Date: 05/30/2024 Narrative: EXAMINATION: Computed tomography of the chest without intravenous contrast HISTORY: Right lower lobe pulmonary artery for and body TECHNIQUE: Transaxial computed tomographic images of the chest were obtained without intravenous contrast according to the standard protocol. COMPARISON: 05/30/[address] angiography. FINDINGS: Bilateral small pleural effusions and atelectasis. There is trace pulmonary edema. Heart is enlarged. Small volume pericardial effusion. Pacemaker defibrillator leads terminate in the right atrium and right ventricle. There left hilar calcified granulomas. There is a curvilinear density originating in the right lower lobe pulmonary artery and extending distally into a lateral basilar subsegmental branch vessel. Visualized portions of the upper abdomen demonstrate changes of cholecystectomy. No suspicious osseous lesions. Impression: 1. Redemonstrated curvilinear radiopaque density extending from the proximal right lower lobe pulmonary artery into a subsegmental lateral basilar branch favors a catheter or wire fragment. 2. Findings most suggestive of heart failure with cardiomegaly, small volume pericardial effusion, and small bilateral pleural effusions and mild pulmonary edema. Electronically signed by: Abilio Post M.D. Transthoracic Echo (TTE) Complete W Doppler/CF Result Date: 05/30/2024 Narrative: [place] [address] Echocardiogram Report Patient Name: LEI RODRIGUEZ V : 1960 Study Date: 05/30/2024 7:47:08 AM Gender: F Tech: Location: [id number] Ref Provider: TY MCFARLAND Height(Cm): 165 BSA: 2.43 Weight(Kg): 128.7 Heart Rate: 94 BP: 135/84 Quality:Good Order Provider: TY MCFARLAND PROCEDURES: Echocardiographic Report: Transthoracic echocardiogram with complete [...] 0.73 [ 0.60 - 0.90 ] cm LVOTPeak Chadd 0.81 [ 0.70 - 1.10 ] [...] Range Measurement Value Normal Range 2D/M Mode Doppler- FINDINGS: Atrial Septum: Normal atrial septum. Left Ventricle: Mild enlargement of left ventriclecavity. Left ventricle not well visualized. Optison contrast [...] of right atrium. Linear artifact in right atriumsuggestive of catheter(s), pacemaker lead(s), or ICD lead(s). Aortic Valve: Aortic cusps appear mildly sclerotic. No evidence of hemodynamically significant aortic stenosis by Doppler. No aortic regurgitation. Mitral Valve: Normal structure of the mitral valve. Mild to moderate mitral valve regurgit ation. The regurgitation jet is eccentrically directed which [...] enlargement of left ventricle cavity. Left ventricle n ot well visualized. Optison contrast agent used to [...] directed which may underestimate the severity of mitralregurgitation. Tricuspid valve not well visualized. Estimated peak RVSP is 42 mmHg. Mild to moderate tricuspid regurgitation. Trivial pericardial effusion. Electronically Signed By: Coleen Cortez DO, [facility], MELISSA CANDELARIO 2024-05-30 09:18:05 CDT CC: CC: CC: XR Chest 1 View Result Date: 05/30/2024 Narrative: EXAMINATION: XR CHEST 1 VIEW History: Shortness of breath Impression: Single view chest exam similar for interpretation with comparison to prior from 03/07/2017. Correlation made with CT from the same day There are diffuse interstitial and airspace opacitiescompatible with moderate pulmonary edema. Likely small effusions. Heart is enlarged. There is a curvilinear density projecting over the right lower lung which corresponds to a catheter or wire in theright lower lobe pulmonary arteries when correlated with the CT examination. This finding is not present on the prior 2016 examination. The presence of this finding was discussed by Dr. Abernathy with Dr. Hollis and documented by Dr. Hollis in the medical record on 05/30/2024 at 457. Electronically signed by: Abilio Post M.D. ECG 12 lead Result Date: 05/30/2024 Narrative: Vent Rate: 86 bpm RR Interval: 697 msec [place] Interval: 0 msec QRS Duration: 145 msec QT Interval: 438 msec QTC Interval: 481 msec P-R-T [place]: 0 - 101 - 95 degrees IMPRESSION: ATRIAL FIBRILLATION RIGHT AXIS DEVIATION [QRS AXIS > 100] INTRAVENTRICULAR CONDUCTION DELAY [130+ ms QRS DURATION] ABNORMAL ECG Unchanged compared to 05/29/2021 Electronically Signed By: Dr. Shiloh Muhammad [facility] CT Chest PE (CTA) W Contrast Result Date: 05/30/2024 Narrative: EXAMINATION: CT CHEST PE (CTA) W CONTRAST HISTORY: Chest pain ORDER DATE: 05/30/2024 3:20AM TECHNIQUE: CT chest images were acquired using a chest angiographic protocol with 3-D imaging optimized for PE is obtained okubftcao80 mL of Optiray 350 IV. 2D Coronal and sagittal reformats were obtained. 3-D rendering (not supervised by radiologist) MIP and/or 3-D reconstructed images were created by the technologist. FINDINGS: Dual lead pacer device implanted in the left chest wall with leads in the right atrium and right ventricle. Pulmonary arteries: Dilated main pulmonary artery measuring 4.9 cm. Some of the segmental branches are not well assessed for exclusion of subtle emboli due to excessive motion. Otherwise centrally no pulmonary artery emboli. A dislodged catheter is visualized in the distal right pulmonary artery extending into the lobar and segmental right lower lobe pulmonary artery branch, image [id number]/coronal series 9. Aorta: Unremarkable. No aortic aneurysm. No aortic dissection. Lungs: Diffuse multilobar septal thickening, peribronchial thickening and increasedground-glass alveolar airspace opacity of the lung parenchyma representing findings of pulmonary interstitial edema. Pleural spaces: Mild left and trace to mild right pleural effusions. Heart: Four-chamber enlarged heart. Reflux of contrast within the hepatic veins and IVC may suggest right heart failure. Trace to mild pericardial effusion present. Lymph nodes: Multiple calcified mediastinal and hilar lymph nodes which suggest prior exposure to granulomatous disease. No lymphadenopathy. Diaphragm: There is a small hiatal hernia. Liver: Coarsened nodular hepatic parenchyma may suggest underlying chronic hepatocellular disease. Liver is prominent in size measuring 17.5 cm. Gallbladder and biliary ducts: Cholecystectomy. Bones/joints: No acute fracture. Soft tissues: Unremarkable. Impression: 1. Motion degraded evaluation of the pulmonary arteries. Some of the segmental branchesare not well assessed for exclusion of subtle emboli. Otherwise centrally no pulmonary artery emboli. 2. Pulmonary arterial hypertension and dislodged the catheter visualized in the distal right pulmonary artery and right lower lobe lobar and segmental pulmonary artery branch. 3. CHF, pulmonary edema and small bilateral pleural effusions. 4. Possible congestive cirrhosis. Correlate with LFTs. 5. Additional findings as described above. Stat report by [facility] . Electronically signed by: Andrea Abernathy M.D. CT Cervical Spine WO Contrast Result Date: 05/30/2024 Narrative: EXAMINATION: CT CERVICAL SPINE WO CONTRAST HISTORY: Neck pain ORDER DATE: 05/29/2024 10:55 PM TECHNIQUE: Multiple helical axial images of the cervical spine were obtained without the administration of contrast. Coronal and sagittal reformatted images were included. FINDINGS: Bones: No acute fracture. Chronic mild C6 loss of vertebral body height present. Normal alignment. Mild right C3-C4 facet arthrosis. C3-C4 disc narrowing and partially calcified bulging disc contributing to [id number] central spinal stenosis. Disc osteophyte complex also contributing to [id number] central spinal stenosis at C4-C5 level. No significant disc bulge or herniation. No severe spinal canal stenosis. Uncovertebral joint hypertrophy contributing to multilevel bilateral neural foraminal stenosis. Lungs: Lung apices are normal. Soft tissues: Unremarkable. Impression: No acute cervical spine injury. Stat report by [facility] Stat report by [facility] Electronically signed by: Andrea Abernathy M.D. CT Head WO Contrast Result Date: 05/30/2024 Narrative: EXAMINATION: CT head without contrast HISTORY: Headache, new or worsening (Age >= 50y) TECHNIQUE: Noncontrast CT of the brain was performed with images acquired from skull base to vertex. COMPARISON: None available. FINDINGS: Brain: Global volume loss and cortical dilatation present. No hemorrhage. Mild chronic microvascular ischemic changes of the periventricular white matter. No mass effect. No edema. Cerebral ventricles: No ventriculomegaly. Paranasal sinuses: Visualized sinuses are unremarkable. No fluid levels. Mastoid air cells: Visualized mastoid air cells are well aerated. Bones: Unremarkable. No acute fracture. Soft tissues: Unremarkable. Impression: No acute intracranial findings. Stat report by [facility] Electronically signed by: Andrea Abernahty M.D. ECG 12 lead Result Date: 05/30/2024 Narrative: Vent Rate: 93 bpm RR Interval: 645 msec [place] Interval: 0 msec QRS Duration: 97 msec QT Interval: 197 msec QTC Interval: 247 msec P-R-T [place]: 0 - 118 - 0 degrees IMPRESSION: ATRIAL FIBRILLATION WITH ABERRANT CONDUCTION OR VENTRICULAR PREMATURE COMPLEXES LOW QRS VOLTAGE [QRS DEFLECTION < 0.5/1.0 mV IN LIMB/CHEST LEADS] SEPTAL MYOCARDIAL INFARCTION , PROBABLY OLD [40+ ms Q WAVE IN V1/V2]Nonspecific IVCD LATERAL MYOCARDIAL INFARCTION , OF INDETERMINATE AGE [40+ ms Q WAVE AND/OR ST/T ABNORMALITY IN I/aVL/V5/V6] ABNORMAL ECG Electronically Signed By: Antonio Carlos MD ASSESSMENT/PLAN Controlled type 2 diabetes mellitus with chronic kidney disease, with long-term current use of insulin (HCC) Hypothyroidism Hypotension due to drugs Chronic diastolic congestive heart failure (CMS/HCC) (HCC) Endocarditis Urinary frequency Gastroesophageal reflux disease without esophagitis Paroxysmal atrial fibrillation (CMS/HCC) ([facility]) Major depressive disorder CKD (chronic kidney disease) CKD ? Hypokalemia/hypomag. Recent endocarditis. Recurrent ICD firing. A fib. DM/HTN. Hx of CHF. Hypothyroidism. PLAN Renal fn is stable, ckd/gerald ocasio not indicated. Hold lasix, keep K over 4, Mg over 2. Cards ocasio, ICD interrogation, Hold Tikosyn/BB. Daily RFP. Will d/w cardiology Repeat CHANCE. 06/12, d/w cards, monitor k, mg and cr, recs as above, monitor microscopic hematuria, start mgo and kcl. 06/13, K and mg acceptable, rpt ua, continue K and mg at current dose. 06/14, k and mg stable, stable renal fn/lytes, continue daily RFP and mag. 06/15, same management, no changes. I can be reached at [phone] with any concerns. Thank you Mell Curran MD for the consult. Seth Flores MD [employer] [phone] * Seth Flores MD - 06/14/2024 8:12 PM CDT Nephrology Progress Note [facility] SUBJECTIVE 06/14 Calmer today. Remains in restraints. K and mg okay. Incontinent of urine. No further dysrhythmia. All labs and data reviewed. 06/13 Appears comfortable. All labs and data reviewed. K 3.9, mg 2.0. No further dysrhythmia reported. Uncooperative and agitated earlier. 06/12 Overall stable. All labs and data reviewed. Bp soft, confused. 2 plus blood in urine. OBJECTIVE Vitals: Vitals: 06/14/24 1815 06/14/24 1820 06/14/24 1825 06/14/24 1933 BP: BP Location: Patient Position: Pulse: 73 76 72 Resp: (!) 33 21 20 Temp: 37.1 ??C (98.7 ??F) TempSrc: Oral SpO2: 93% 94% 94% Weight: Height: Intake/Output Summary (Last 24 hours) at 06/14/20242011 Last data filed at 06/14/2024 1451 Gross per 24 hour Intake 600 ml Output -- Net 600 ml REVIEW OF SYSTEMS Review of Systems Constitutional: Negative. HENT: Negative. Eyes: Negative. Respiratory: Negative. Cardiovascular: Negative. Gastrointestinal: Negative. Genitourinary: Negative. Musculoskeletal: Negative. Skin: Negative. Allergic/Immunologic: Negative. Hematological: Negative. All other systems reviewed and are negative. PHYSICAL EXAM Physical Exam Constitutional: Appears well-developed. HENT: wnl Head: Normocephalic. Eyes: Pupils are equal, round, and reactive to light. Neck: Normal range of motion. Neck supple. Cardiovascular: Normal rate. Pulmonary/Chest: Effort normal and breath sounds normal. Abdominal: Soft. Musculoskeletal: Normal range of motion. Neurological: Alert, oriented. Skin: Skin is warm. Nursing note and vitals reviewed. MEDICATIONS Current Facility-Administered Medications: albuterol HFA (PROVENTIL HFA,VENTOLIN HFA,PROAIR HFA) 90 mcg/actuation inhaler 2 puff, 2 puff, inhalation, Q6H PRN (RT), SitaerDilan MD carvediloL (COREG) tablet 25 mg, 25 mg, oral, BID with meals (bkfst, dinner), Rachel Barnes NP, 25 mg at 06/14/24 1805 ceFAZolin (ANCEF) 2,000 mg/100 mL in dextrose (premix) 2 g, 2 g, intravenous, Q8H GALINA, Rachel Barnes NP, Last Rate: 200 mL/hr at 06/14/24 1740, 2 g at 06/14/24 1740 cholecalciferol (VITAMIN D-3) tablet 5,000 Units, 5,000 Units, oral, Daily, Rachel Barnes NP, 5,000 Units at 06/14/24 0923 dexmedeTOMIDine in 0.9% sodium chloride (PRECEDEX) 400 mcg/100 mL (4 mcg/mL) infusion (premix), 0-0.7 mcg/kg/hr, intravenous, Titrated, Coleen Samuels MD, Stopped at 06/14/24 1730 dextrose oral liquid liquid 15 g, 15 g, oral, Q15 Min PRN OR dextrose (D10W) 10% bolus 250 mL, 250 mL, intravenous, Q15 Min PRN, Rachel Barnes, ALLY docusate sodium (COLACE) capsule 100 mg, 100 mg, oral, BID, Rachel Barnes NP, 100 mg at 06/14/24 09 escitalopram (LEXAPRO) tablet 5 mg, 5 mg, oral, Daily, Coleen Sameuls MD, 5 mg at 06/14/24922 ferrous sulfate delayed release tablet 65 mg of elemental iron, 65 mg of elemental iron, oral, Daily with breakfast, Rachel Barnes NP, 65 mg of elemental iron at 06/14/24922 fluticasone propionate (FLONASE) 50 mcg/actuation nasal spray 1 spray, 1 spray, each nostril, DailyPRN, Rachel Barnes NP glucagon injection 1 mg, 1 mg, intramuscular, Q30 Min PRN, Rachel Barnes NP HYDROcodone-acetaminophen (NORCO) 5-325 mg per tablet 1 tablet, 1 tablet, oral, QID PRN, Dilan Palmer MD, 1 tablet at 06/14/24 1429 insulin glargine (LANTUS, SEMGLEE) 100 unit/mL injection 17 Units, 0.15 Units/kg, subcutaneous, Nightly, Rachel Barnes NP, 17 Units at 06/13/24 2044 insulin lispro (HumaLOG, ADMELOG) 100 unit/mL injection 0-4 Units, 0-4 Units, subcutaneous, Nightly, Rachel Barnes NP insulin lispro (HumaLOG, ADMELOG) 100 unit/mL injection 0-5 Units, 0-5 Units, subcutaneous, TID with meals, Rachel Barnes NP, 2 Units at 06/14/24 1805 insulin lispro (HumaLOG, ADMELOG) 100 unit/mL injection 6 Units, 0.05 Units/kg, subcutaneous, TID with meals, Rachel Barnes NP, 6 Units at 06/14/241804 levothyroxine (SYNTHROID) tablet 75 mcg, 75 mcg, oral, QAM, Rachel Barnes, ALLY, 75 mcg at 06/14/24 06 magnesium oxide (MAG-OX) tablet 400 mg, 400 mg, oral, Daily, Seth Flores MD, 400 mg at 06/14/24922 multivit kexkitlf-kqsx-YA-calcium (THERA-M) tablet 1 tablet, 1 tablet, oral, Daily, Rachel Barnes NP, 1 tablet at 06/14/24922 nortriptyline (PAMELOR) capsule 10 mg, 10 mg, oral, Daily, Rachel Barnes NP, 10 mg at 06/14/24922 OLANZapine (ZyPREXA) 5 mg in sterile water 1 mL (5 mg/mL) syringe, 5 mg, intramuscular, Q6H PRN, Mell Curran MD pantoprazole DR (PROTONIX) extended release tablet 40 mg, 40 mg, oral, Daily, Rachel Barnes NP, 40 mg at 06/14/24922 potassium chloride ER (KLOR-CON) extended release tablet 40 mEq, 40 mEq, oral, Daily, Coleen Samuels MD, 40 mEq at 06/14/24922 rivaroxaban (XARELTO) tablet 20 mg, 20 mg, oral, Daily with dinner, Rachel Barnes NP, 20 mgat 06/14/241804 sacubitriL-valsartan (ENTRESTO) 24-26 mg tablet 1 tablet, 1 tablet, oral, BID, Rachel Barnes NP, 1 tablet at 06/14/24922 Lab/Radiology/Diagnostic Review: Recent Results (from the past 24 hour(s)) Magnesium Collection Time: 06/14/24 4:35 AM Result Value Ref Range Magnesium 2.0 1.4 - 2.5 mg/dL Renal function panel Collection Time: 06/14/24 4:35 AM Result Value Ref Range Sodium 137 135 - 145 mmol/L Potassium, pl 4.1 3.3 - 4.9 mmol/L Chloride 103 97 - 110 mmol/L CO2 27 22 - 32 mmol/L Anion gap 7 2 - 15 mmol/L BUN 11 6 - 25 mg/dL Creatinine 0.67 0.60 - 1.10 mg/dL Glucose 185 70 - 199 mg/dL Calcium 9.2 8.5 - 10.3 mg/dL Phosphorus, pl 3.6 2.3 - 4.5 mg/dL Albumin 3.0 (L) 3.5 - 5.0 g/dL eGFR Collection Time: 06/14/24 4:35 AM Result Value Ref Range eGFR >90 >=60 mL/min/1.73 m2 POCT glucose Collection Time: 06/14/24 7:49 AM Result Value Ref Range Glucose, POC 193 70 - 199 mg/dL POCT glucose Collection Time: 06/14/24 12:23 PM Result Value Ref Range Glucose, POC 187 70 - 199 mg/dL Urinalysis reflex to microscopic and culture Urine, clean voided Collection Time: 06/14/24 2:15 PM Specimen: Urine, clean voided Result Value Ref Range Color, ur Yellow Yellow Clarity, ur Clear Clear Specific gravity, ur 1.019 1.003 - 1.030 pH, urine 6.5 Protein, ur ql Negative Negative Glucose, ur ql 3+ (A) Negative Ketones, ur Negative Negative Bilirubin, ur Negative Negative Blood, ur Negative Negative Urobilinogen, ur <2.0 <2.0 mg/dL Nitrite, ur Negative Negative Leukocyte esterase, ur Negative Negative UA reflex comment Reflex conditions for microscopic UA and culture not met. POCT glucose Collection Time: 06/14/24 5:46 PM Result Value Ref Range Glucose, POC 233 (H) 70 - 199 mg/dL Recent Labs Lab Units 06/14/24 1415 06/12/24 0646 CLARITY U Clear Clear COLOR U Yellow Yellow KETONES UR Negative Negative NITRITE UR Negative Negative SPEC GRAV U 1.019 1.026 UROBILINOGEN UR mg/dL <2.0 <2.0 WBC UR QT /HPF -- 0-5 CTA Upper Extremity Right W WO Contrast Result Date: 06/07/2024 Narrative: EXAMINATION: CTA UPPER EXTREMITY RIGHT W WO CONTRAST HISTORY: Right upper arm swelling ORDER DATE: 06/06/2024 10:40 PM TECHNIQUE: Imaging protocol: Computed tomographic angiography of the right upper extremity with contrast, including non-contrast images if performed. 3D rendering (Not supervised by radiologist): MIP and/or 3D reconstructed images were created by the technologist. Contrast material: OPTIRAY 350; Contrast volume: 119 ml IV COMPARISON: CT CHEST PE (CTA) W CONTRAST 05/30/2024 FINDINGS: Tubes, catheters and devices: There is a PICC line inserted through the right basilicvein at the level of the distal arm. There is mild fat stranding within the anterior distal arm, without sizable hematoma or drainable fluid collection. No evidence of active extravasation. Pulmonaryarteries: There is a partially visualized curvilinear metallic structure within the right pulmonaryartery, similar to prior. Right subclavian artery: No acute findings. No occlusion or significant stenosis. Axillary artery: No acute findings. No occlusion or significant stenosis. Brachial artery: No acute findings. No occlusion or significant stenosis. Radial artery: No acute findings. No occlusion or significant stenosis. Ulnar artery: No acute findings. No occlusion or significant stenosis. Veins: Peripheral intravenous access is seen within the cephalic vein at the level of the antecubital fossa. Impression: 1. Patent arterial system of the right upper extremity as detailed above. 2. No evidence of hematoma or drainable fluid collection Stat report by [facility] Electronically signed by: Andrea Abernathy M.D. ECG 12 lead Result Date: 06/06/2024 Narrative: Vent Rate: 78 bpm RR Interval: 763 msec [place] Interval: 0 msec QRS Duration: 154 msec QT Interval: 473 msec QTC Interval: 506 msec P-R-T [place]: 0 - 23 - 94 degrees IMPRESSION: ATRIAL FIBRILLATION Occasional ventricular pacing INDETERMINATE AXIS Left bundle branch block ABNORMAL ECG Electronically Signed By: Dr. Shiloh Muhammad [facility] US Vein Duplex Upper Extremity Right Limited, Unilateral Result Date: 06/06/2024 Narrative: EXAMINATION: US VEIN DUPLEX UPPER EXTREMITY RIGHT LIMITED, UNILATERAL HISTORY: The patient is a 63-year-old female who presents with swelling in the right upper extremity. TECHNIQUE: Rightupper extremity venous duplex study was performed with hahn scale imaging, color Doppler imaging and spectral waveform analysis. FINDINGS: There is normal compressibility and phasicity in both internal jugular and subclavian veins as well as the right axillary, brachial, radial, ulnar, cephalic andbasilic veins. Imaging of these veins reveals no thrombus within the lumen. Impression: There is no evidence of acute DVT in the right upper extremity. Electronically signed by: Conrad Davila M.D. XR Chest Pa Lateral 2 Views Result Date: 06/06/2024 Narrative: EXAMINATION: XR CHEST PA LATERAL 2 VIEWS HISTORY: The patient is a 63-year-old female who has had placement of a PICC line. Comparison made with the previous study dated 12/26/2020. TECHNIQUE: AP and lateral view of the chest. FINDINGS: The distal tip of the right PICC line is in the distal superior vena cava. Cardiomegaly with aortic atherosclerosis. No failure. No active infiltrate. Impression: No failure. Electronically signed by: Conrad Davila M.D. IR PICC Line Placement Over 5 Years of Age Result Date: 06/05/2024 Narrative: EXAMINATION: IR PICC LINE PLACEMENT OVER 5 YEARS OF AGE DATE: 06/05/2024 2:05 PM HISTORY:sepsis Unsuccessful attempt at bedside PICC line placement by in-house vascular team. TECHNIQUE: The risks, benefits, and alternatives were discussed and informed consent was obtained. Prior to beginn ing the procedure, universal protocol was performed to confirm the patient's identity and the planned procedure. Maximum sterile barriers including cap, mask, hand hygiene, sterile gloves, sterile gown, large sterile drape, sterile gel, sterile ultrasound probe cover, and 2% chlorhexidine for cutaneous antisepsis were used. The skin over the right basilic vein was sterilely prepped, draped, and infiltrated with lidocaine. Prior to the procedure, this target vessel was evaluated by ultrasound and an image of the patent vessel demonstrating vessel patency was recorded in the patient's electronic medical record. This vessel was then accessed using real-time ultrasound guidance. A guidewire waspassed centrally using fluoroscopic guidance. The intravascular length from the access site to the right atrium was assessed. After dilating the tract, a 45 cm, 5-[place] dual-lumen PICC was inserted through the peel-away sheath. The peel-away sheath was then removed. The catheter was flushed and sec ured in place. A sterile dressing was applied. The final fluoroscopic image demonstrates the catheter with its tip at the cavoatrial junction. No complications were identified. The catheter is ready for immediate use. When treatment is completed, this catheter can be removed at the bedside according to standard hospital protocol. Impression: Successful PICC placement using ultrasound guidance. Electronically signed by: Blaine Nash M.D. XR Chest 1 View Result Date: 06/05/2024 Narrative: EXAMINATION: XR CHEST 1 VIEW HISTORY: The patient is a 63-year-old female who has had anattempted PICC line placement. Comparison made with the previous study dated 05/29/2024. TECHNIQUE:AP portable view of the chest. FINDINGS: Cardiomegaly with aortic atherosclerosis. No failure. No active infiltrate. Impression: Cardiomegaly. Electronically signed by: Conrad Davila M.D. ECG 12 lead Result Date: 06/02/2024 Narrative: Vent Rate: 86 bpm RR Interval: 697 msec OH Interval: 0 msec QRS Duration: 157 msec QT Interval: 470 msec QTC Interval: 513 msec P-R-T [place]: 0 - 38 - 88 degrees IMPRESSION: ATRIAL FIBRILLATION WITH ABERRANT CONDUCTION OR VENTRICULAR PREMATURE COMPLEXES LEFT BUNDLE BRANCH BLOCK [120+ ms QRS DURATION, 80+ ms Q/S IN V1/V2, 85+ ms R IN I/aVL/V5/V6] ABNORMAL ECG Compared to prior EKG, ventricular pacing is no longer present Electronically Signed By: Antonio Carlos MD ECG 12 lead Result Date: 06/02/2024 Narrative: Vent Rate: 76 bpm RR Interval: 782 msec OH Interval: 0 msec QRS Duration: 158 msec QT Interval: 494 msec QTC Interval: 525 msec P-R-T [place]: 0 - 116 - 120 degrees IMPRESSION: ATRIAL FIBRILLATION WITH demand ventricular pacemaker MARKED RIGHT AXIS DEVIATION [QRS AXIS > 100] INTRAVENTRICULAR CONDUCTION DELAY [130+ ms QRS DURATION] ABNORMAL ECG Compared to prior EKG, demand ventricular pacing is new Electronically Signed By: Antonio Carlos MD CT Abdomen Pelvis W Contrast Result Date: 06/01/2024 Narrative: EXAMINATION: CT ABDOMEN PELVIS W CONTRAST DATE: 06/01/2024 1:05 PM HISTORY: Sepsis. COMPARISON: 02/28/2017. TECHNIQUE: Transaxial computed tomographic images of the abdomen and pelvis were obtained after the administration of 119 mL of Optiray 350 intravenously. Multiplanar coronal and sagittal images were reformatted. FINDINGS: Similar scarring in the left lung base unchanged since 2017. There is cardiomegaly and mosaic attenuation in the lung bases suggestive of pulmonary edema. There is a small hiatal hernia. Cholecystectomy. Diffuse hepatic steatosis. The spleen, pancreas, and adrenal glands are unremarkable. Kidneys are unremarkable. No hydroureteronephrosis. Unopacified bladder is unremarkable. Uterus and adnexal structures are unremarkable. No free fluid in the pelvis. There is diverticulosis. No evidence of diverticulitis. The small bowel is unremarkable. Mild atherosclerotic calcifications in the aorta and branch vessels. Subcutaneous tissues are unremarkable. No pathologic by size criteria lymphadenopathy. Mild bilateral sacroiliac joint arthrosis. No acute fracture. No pathologic by size criteria lymphadenopathy. Impression: 1. Mosaic attenuation in the lung bases suggestive of interstitial pulmonary edema. 2. Diffuse hepatic steatosis. 3. Small hiatal hernia. 4. Trace left pleural effusion. 5. Additional chronic or incidental findings as above. Electronically signed by: Azeem Robins II, D.O. ECG 12 lead Result Date: 06/01/2024 Narrative: Vent Rate: 102 bpm RR Interval: 584 msec OH Interval: 0 msec QRS Duration: 149 msec QT Interval: 387 msec QTC Interval: 446 msec P-R-T [place]: 0 - 115 - 66 degrees IMPRESSION: ATRIAL FIBRILLATION WITH RAPID VENTRICULAR RESPONSE WITH ABERRANT CONDUCTION OR VENTRICULAR PREMATURE COMPLEXES INDETERMINATE AXIS INTRAVENTRICULAR CONDUCTION DELAY [130+ ms QRS DURATION] ABNORMAL ECG NO CHANGE FROM PREVIOUS TRACING NOTED Electronically Signed By: Antonio Carlos MD ECG 12 lead Result Date: 06/01/2024 Narrative: Vent Rate: 83 bpm RR Interval: 716 msec OH Interval: 0 msec QRS Duration: 154 msec QT Interval: 409 msec QTC Interval: 449 msec P-R-T [place]: 0 - 123 - 189 degrees IMPRESSION: ATRIAL FIBRILLATION INTRAVENTRICULAR CONDUCTION DELAY LATERAL MYOCARDIAL INFARCTION , OF INDETERMINATE AGE Electronically Signed By: Cristino Kingsley MD, [facility] ECG 12 lead Result Date: 05/31/2024 Narrative: Vent Rate: 74 bpm RR Interval: 810 msec OH Interval: 0 msec QRS Duration: 151 msec QT Interval: 449 msec QTC Interval: 476 msec P-R-T [place]: 0 - 102 - 146 degrees IMPRESSION: VENTRICULAR PACED RHYTHM Electronically Signed By: Cristino Kingsley MD, [facility] ECG 12 lead Result Date: 05/31/2024 Narrative: Vent Rate: 76 bpm RR Interval: 785 msec OH Interval: 0 msec QRS Duration: 150 msec QT Interval: 471 msec QTC Interval: 501 msec P-R-T [place]: 0 - 80 - 97 degrees IMPRESSION: ATRIAL FIBRILLATION WITH ABERRANT CONDUCTION OR VENTRICULAR PREMATURE COMPLEXES INTRAVENTRICULAR CONDUCTION DELAY [130+ ms QRS DURATION] ABNORMAL ECG Electronically Signed By: Dr. Shiloh Muhammad [facility] ECG 12 lead Result Date: 05/30/2024 Narrative: Vent Rate: 109 bpm RR Interval: 548 msec OH Interval: 0 msec QRS Duration: 149 msec QT Interval: 398 msec QTC Interval: 462 msec P-R-T [place]: 0 - 96 - 89 degrees IMPRESSION: ATRIAL FIBRILLATION WITH RAPID VENTRICULAR RESPONSE BORDERLINE RIGHT AXIS DEVIATION [QRS AXIS > 90] INTRAVENTRICULAR CONDUCTION DELAY [130+ ms QRS DURATION] ABNORMAL ECG Unchanged compared to an EKG done earlier on May 30, 2024 Electronically Signed By: Dr. Shiloh Muhammad [facility] CT Chest WO Contrast Result Date: 05/30/2024 Narrative: EXAMINATION: Computed tomography of the chest without intravenous contrast HISTORY: Right lower lobe pulmonary artery for and body TECHNIQUE: Transaxial computed tomographic images of the chest were obtained without intravenous contrast according to the standard protocol. COMPARISON: 05/30/[address] angiography. FINDINGS: Bilateral small pleural effusions and atelectasis. There is trace pulmonary edema. Heart is enlarged. Small volume pericardial effusion. Pacemaker defibrillator leads terminate in the right atrium and right ventricle. There left hilar calcified granulomas. There is a curvilinear density originating in the right lower lobe pulmonary artery and extending distally into a lateral basilar subsegmental branch vessel. Visualized portions of the upper abdomen demonstrate changes of cholecystectomy. No suspicious osseous lesions. Impression: 1. Redemonstrated curvilinear radiopaque density extending from the proximal right lower lobe pulmonary artery into a subsegmental lateral basilar branch favors a catheter or wire fragment. 2. Findings most suggestive of heart failure with cardiomegaly, small volume pericardial effusion, and small bilateral pleural effusions and mild pulmonary edema. Electronically signed by: Abilio Post M.D. Transthoracic Echo (TTE) Complete W Doppler/CF Result Date: 05/30/2024 Narrative: [place] [address] Echocardiogram Report Patient Name: LEI RODRIGUEZ V : 1960 Study Date: 05/30/2024 7:47:08 AM Gender: F Tech: GUILHERME Location: [id number] Ref Provider: TY MCFARLAND Height(Cm): 165 BSA: 2.43 Weight(Kg): 128.7 Heart Rate: 94 BP: 135/84 Quality:Good Order Provider: TY MCFARLAND PROCEDURES: Echocardiographic Report: Transthoracic echocardiogram with complete [...] ] m/s LA Volume Index 22.99 [ 16.00- 34.00 ] cc/m2 MV A Peak Chadd 0.31 [ 1.00 - 1.20 ] m/s ACS MM 2.14 cm MV Mean PG 2 mmHg MV PHT 54 [20 - 100 ] msec MVA PHT 4.11 [...] Right Ventricle: Normal right ventricular systolic function. Pac emaker noted. Right Atrium: There is mild enlargement [...] peak RVSP is 42 mmHg. Mild to m oderate tricuspid regurgitation. Pericardium: Trivial pericardial effusion. Aorta: Mild aortic rootcalcification. IVC: Dilated IVC without respiratory collapse consistent [...] MELISSA 2024-05-30 09:18:05 CDT CC: CC: CC: XR Chest 1 View Result Date: 05/30/2024 Narrative: EXAMINATION: XR CHEST 1 VIEW History: Shortness of breath Impression: Single view chest exam similar for interpretation with comparison to prior from 03/07/2017. Correlation made with CT from the same day There are diffuse interstitial and airspace opacitiescompatible with moderate pulmonary edema. Likely small effusions. Heart is enlarged. There is a curvilinear density projecting over the right lower lung which corresponds to a catheter or wire in theright lower lobe pulmonary arteries when correlated with the CT examination. This finding is not present on the prior 2017 examination. The presence of this finding was discussed by Dr. Abernathy with Dr. Hollis and documented by Dr. Hollis in the medical record on 05/30/2024 at [facility]. Electronically signed by: Abilio Post M.D. ECG 12 lead Result Date: 05/30/2024 Narrative: Vent Rate: 86 bpm RR Interval: 697 msec OH Interval: 0 msec QRS Duration: 145 msec QT Interval: 438 msec QTC Interval: 481 msec P-R-T [place]: 0 - 101 - 95 degrees IMPRESSION: ATRIAL FIBRILLATION RIGHT AXIS DEVIATION [QRS AXIS > 100] INTRAVENTRICULAR CONDUCTION DELAY [130+ ms QRS DURATION] ABNORMAL ECG Unchanged compared to 05/29/2021 Electronically Signed By: Dr. Shiloh Muhammad [facility] CT Chest PE (CTA) W Contrast Result Date: 05/30/2024 Narrative: EXAMINATION: CT CHEST PE (CTA) W CONTRAST HISTORY: Chest pain ORDER DATE: 05/30/2024 3:20AM TECHNIQUE: CT chest images were acquired using a chest angiographic protocol with 3-D imaging optimized for PE is obtained [id number] mL of Optiray 350 IV. 2D Coronal and sagittal reformats were obtained. 3-D rendering (not supervised by radiologist) MIP and/or 3-D reconstructed images were created by the technologist. FINDINGS: Dual lead pacer device implanted in the left chest wall with leads in the right atrium and right ventricle. Pulmonary arteries: Dilated main pulmonary artery measuring 4.9 cm. Some of the segmental branches are not well assessed for exclusion of subtle emboli due to excessive motion. Otherwise centrally no pulmonary artery emboli. A dislodged catheter is visualized in the distal right pulmonary artery extending into the lobar and segmental right lower lobe pulmonary artery branch, image [id number]/coronal series 9. Aorta: Unremarkable. No aortic aneurysm. No aortic dissection. Lungs: Diffuse multilobar septal thickening, peribronchial thickening and increasedground-glass alveolar airspace opacity of the lung parenchyma representing findings of pulmonary interstitial edema. Pleural spaces: Mild left and trace to mild right pleural effusions. Heart: Four-chamber enlarged heart. Reflux of contrast within the hepatic veins and IVC may suggest right heart failure. Trace to mild pericardial effusion present. Lymph nodes: Multiple calcified mediastinal and hilar lymph nodes which suggest prior exposure to granulomatous disease. No lymphadenopathy. Diaphragm: There is a small hiatal hernia. Liver: Coarsened nodular hepatic parenchyma may suggest underlying chronic hepatocellular disease. Liver is prominent in size measuring 17.5 cm. Gallbladder and biliary ducts: Cholecystectomy. Bones/joints: No acute fracture. Soft tissues: Unremarkable. Impression: 1. Motion degraded evaluation of the pulmonary arteries. Some of the segmental branchesare not well assessed for exclusion of subtle emboli. Otherwise centrally no pulmonary artery emboli. 2. Pulmonary arterial hypertension and dislodged the catheter visualized in the distal right pulmonary artery and right lower lobe lobar and segmental pulmonary artery branch. 3. CHF, pulmonary edema and small bilateral pleural effusions. 4. Possible congestive cirrhosis. Correlate with LFTs. 5. Additional findings as described above. Stat report by [facility] . Electronically signed by: Andrea Abernathy M.D. CT Cervical Spine WO Contrast Result Date: 05/30/2024 Narrative: EXAMINATION: CT CERVICAL SPINE WO CONTRAST HISTORY: Neck pain ORDER DATE: 05/29/2024 10:55 PM TECHNIQUE: Multiple helical axial images of the cervical spine were obtained without the administration of contrast. Coronal and sagittal reformatted images were included. FINDINGS: Bones: No acute fracture. Chronic mild C6 loss of vertebral body height present. Normal alignment. Mild right C3-C4 facet arthrosis. C3-C4 disc narrowing and partially calcified bulging disc contributing to [id number] central spinal stenosis. Disc osteophyte complex also contributing to jwaq-em-ktteqyxl central spinal stenosis at C4-C5 level. No significant disc bulge or herniation. No severe spinal canal stenosis. Uncovertebral joint hypertrophy contributing to multilevel bilateral neural foraminal stenosis. Lungs: Lung apices are normal. Soft tissues: Unremarkable. Impression: No acute cervical spine injury. Stat report by [facility] Stat report by [facility] Electronically signed by: Andrea Abernathy M.D. CT Head WO Contrast Result Date: 05/30/2024 Narrative: EXAMINATION: CT head without contrast HISTORY: Headache, new or worsening (Age >= 50y) TECHNIQUE: Noncontrast CT of the brain was performed with images acquired from skull base to vertex. COMPARISON: None available. FINDINGS: Brain: Global volume loss and cortical dilatation present. No hemorrhage. Mild chronic microvascular ischemic changes of the periventricular white matter. No mass effect. No edema. Cerebral ventricles: No ventriculomegaly. Paranasal sinuses: Visualized sinuses are unremarkable. No fluid levels. Mastoid air cells: Visualized mastoid air cells are well aerated. Bones: Unremarkable. No acute fracture. Soft tissues: Unremarkable. Impression: No acute intracranial findings. Stat report by [facility] Electronically signed by: Andrea Abernathy M.D. ECG 12 lead Result Date: 05/30/2024 Narrative: Vent Rate: 93 bpm RR Interval: 645 msec [place] Interval: 0 msec QRS Duration: 97 msec QT Interval: 197 msec QTC Interval: 247 msec P-R-T [place]: 0 - 118 - 0 degrees IMPRESSION: ATRIAL FIBRILLATION WITH ABERRANT CONDUCTION OR VENTRICULAR PREMATURE COMPLEXES LOW QRS VOLTAGE [QRS DEFLECTION < 0.5/1.0 mV IN LIMB/CHEST LEADS] SEPTAL MYOCARDIAL INFARCTION , PROBABLY OLD [40+ ms Q WAVE IN V1/V2]Nonspecific IVCD LATERAL MYOCARDIAL INFARCTION , OF INDETERMINATE AGE [40+ ms Q WAVE AND/OR ST/T ABNORMALITY IN I/aVL/V5/V6] ABNORMAL ECG Electronically Signed By: Antonio Carlos MD ASSESSMENT/PLAN Controlled type 2 diabetes mellitus with chronic kidney disease, with long-term current use of insulin (HCC) Hypothyroidism Hypotension due to drugs Chronic diastolic congestive heart failure (CMS/HCC) (HCC) Endocarditis Urinary frequency Gastroesophageal reflux disease without esophagitis Paroxysmal atrial fibrillation (CMS/HCC) (HCC) Major depressive disorder CKD (chronic kidney disease) CKD ? Hypokalemia/hypomag. Recent endocarditis. Recurrent ICD firing. A fib. DM/HTN. Hx of CHF. Hypothyroidism. PLAN Renal fn is stable, ckd/gerald ocasio not indicated. Hold lasix, keep K over 4, Mg over 2. Cards ocasio, ICD interrogation, Hold Tikosyn/BB. Daily RFP. Will d/w cardiology Repeat CHANCE. 06/12, d/w cards, monitor k, mg and cr, recs as above, monitor microscopic hematuria, start mgo and kcl. 06/13, K and mg acceptable, rpt ua, continue K and mg at current dose. 06/14, k and mg stable, stable renal fn/lytes, continue daily RFP and mag. I can be reached at [phone] with any concerns. Thank you Mell Curran MD for the consult. Seth Flores MD [employer] [phone] * Eben Pettit MD - 06/14/2024 11:39 AM CDT Infectious Disease Consult Consulting Physician: Eben Pettit MD. Reason for consult: Ongoing IV antibiotic therapy new admission for syncope Interval history/review of systems Much calmer today Sitting up in chair Afebrile currently T-max of 100?? Sleep Sitter in room, on Precedex Low-grade temperatures T-max 100?? Objective: Vitals: 24hr Min/Max: Temp Min: 36.4 ??C (97.5 ??F) Max: 37.8 ??C (100.1 ??F) Pulse Min: 70 Max: 89 BP Min: 93/57 Max: 142/82 Resp Min: 13 Max: 47 SpO2 Min: 76 % Max: 100 % Most Recent : Vitals: 06/14/24 1025 06/14/24 1030 06/14/24 1035 06/14/24 1040 BP: BP Location: Patient Position: Pulse: 71 72 70 73 Resp: 25 (!) 36 24 18 Temp: TempSrc: SpO2: 97% 100% 97% (!) 76% Weight: Height: Physical Exam: General appearance: alert, cooperative, no distress HEENT: (-)icterus, Oropharnyx is normal, forehead with stitches, site is clean Neck: No palpable LN Lungs: breath sounds normal and symmetric; minimal respiratory effort, no r/w/c Heart: normal S1 and S2, no m/r/g Abdomen: soft without mass, non-tender, +bowel sounds, no HSM Extremities/Skin: no gross deformities, FROM, no new rashes, no ulcerations Vascular: no Edema, pulses present bilaterally Neuro: No focal deficits Psych: Appropriate mood and affect Double-lumen PICC line right upper extremity placed 06/05, site is clean Labs Reviewed. Recent Labs Lab Units 06/11/24 0107 06/08/24 0430 WBC K/cumm 6.0 6.3 5.5 HEMOGLOBIN g/dL 11.5* 11.6* 11.9 HEMATOCRIT % 35.8 35.8 37.0 PLATELETS K/cumm 314 286 295 Recent Labs Lab Units 06/14/24 0435 06/13/24 0259 06/12/24 0344 BUN SERUM mg/dL 11 11 15 CREATININE mg/dL 0.67 0.64 0.63 Lab Results Component Value Date ALT 5 (L) 06/08/2024 AST 21 06/08/2024 ALKPHOS 217 (H) 06/08/2024 BILITOT 0.5 06/08/2024 Cultures No results found for the last 90 days. Imaging CTA right upper extremity with no evidence of hematoma or drainable fluid collection. Patent arterial system. No evidence of DVT Assessment: MSSA bacteremia Called microlab during last admission, [facility] blood cultures 05/25 NG. blood cultures were positive for Staph aureus 05/21 and 05/22 Documented at outside hospital, unknown date so far will follow-up with [facility]. 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 Discussed case with Dr. Neli Hutchinson during last admission She underwent CHANCE, with no visible valve vegetation. Repeat blood cultures 05/30 no growth She has AICD in place. There was a clot in [place], probably an appendage clot, hence synchronized Cardioversion was canceled on last admission. Electrophysiology/Cardiology team was following and there was plan for Bi V ICD after completing antibiotic course. Blood cultures were negative at outside hospital from 05/25, blood cultures negative at this facility from 05/30 CT abdomen and pelvis 06/01 With no significant infectious findings Nausea vomiting/syncope due to VF/fall Cardiology is following Dislodged catheter/lead.. PA Atrial fibrillation CHF GERD Hypertension Obstructive sleep apnea Thyroid disease Intellectual disability Plan: Continue on Ancef to complete therapy till 06/22, due to presence of AICD. blood cultures from 05/30 no growth. New blood cultures were ordered due to fever 06/13 Urinalysis from 06/12 with no signs of infection next IR guided PICC line placement on 06/05. Right upper extremity, Dopplers with no DVT, CTA with no hematoma/fluid collection. Will repeat chest x-ray Follow-up on blood cultures from 06/13 Will follow. Thanks for Consulting Infectious Diseases. Will follow. Eben Pettit MD 06/14/2024 [facility] [facility] Office: [phone] Fax: [phone] Voice recognition software was used to complete this document, therefore, hand spray operator variances may occur. * Lizzie Hong MD - 06/14/2024 11:12 AM CDT HV - Cardiology [facility] Progress Note Admit Date: 06/10/2024 11:41 PM @HDAYS@ PCP: Oswaldo Serrano MD Patient seen and examined Chart , telemtry reviewed Symptoms Patient denies chest pain, dyspnea, palpitations, sweating or syncope. Sitting in chair Data Vitals: 06/14/24 1025 06/14/24 1030 06/14/24 1035 06/14/24 1040 BP: BP Location: Patient Position: Pulse: 71 72 70 73 Resp: 25 (!) 36 24 18 Temp: TempSrc: SpO2: 97% 100% 97% (!) 76% Weight: Height: Intake/Output Summary (Last 24 hours) at 06/14/2024 1112 Last data filed at 06/14/2024 1050 Gross per 24 hour Intake 360 ml Output -- Net 360 ml No results found for: WBC , HGB , HCT Lab Results Component Value Date SODIUM 137 06/14/2024 SODIUM 140 06/13/2024 SODIUM 137 06/12/2024 POTASSIUM 4.1 06/14/2024 POTASSIUM 3.9 06/13/2024 POTASSIUM 3.8 06/12/2024 CHLORIDE 103 06/14/2024 CHLORIDE 104 06/13/2024 CHLORIDE 102 06/12/2024 CO2 27 06/14/2024 CO2 28 06/13/2024 CO2 28 06/12/2024 CREATININE 0.67 06/14/2024 CREATININE 0.64 06/13/2024 CREATININE 0.63 06/12/2024 GLUCOSE 193 06/14/2024 GLUCOSE 185 06/14/2024 GLUCOSE 141 06/13/2024 GLUCOSE 70 06/13/2024 GLUCOSE 149 06/13/2024 GLUCOSE 154 06/12/2024 CALCIUM 9.2 06/14/2024 CALCIUM 9.2 06/13/2024 CALCIUM 8.6 06/12/2024 No results found for: PTT No results found for: PT No results found for: INR No results found for: BNP No components found for: TROPONIN No results found for: CHOL , TRIG , HDL , LDLCALC Lab Results Component Value Date ALBUMIN 3.0 (L) 06/14/2024 ALBUMIN 3.2 (L) 06/13/2024 ALBUMIN 3.1 (L) 06/12/2024 No components found for: MAGMGDL No results found for: TSH No results found for: T3FREE No results found for: [id number] Pain Assessment: No/denies pain Meds MEDICATIONS FOR CURRENT ENCOUNTER: SCHEDULED MEDICATIONS: Scheduled Medications Medication Dose Route Frequency carvediloL (COREG) tablet 25 mg 25 mg oral BID with meals (bkfst, dinner) ceFAZolin (ANCEF) 2,000 mg/100 mL in dextrose (premix) 2 g 2 g intravenous Q8H GALINA cholecalciferol (VITAMIN D-3) tablet 5,000 Units 5,000 Units oral Daily docusate sodium (COLACE) capsule 100 mg 100 mg oral BID escitalopram (LEXAPRO) tablet 5 mg 5 mg oral Daily ferrous sulfate delayed release tablet 65 mg of elemental iron 65 mg of elemental iron oral Daily with breakfast insulin glargine (LANTUS, SEMGLEE) 100 unit/mL injection 17 Units 0.15 Units/kg subcutaneous Nightly insulin lispro (HumaLOG, ADMELOG) 100 unit/mL injection 0-4 Units 0-4 Units subcutaneous Nightly insulin lispro (HumaLOG, ADMELOG) 100 unit/mL injection 0-5 Units 0-5 Units subcutaneous TID with meals insulin lispro (HumaLOG, ADMELOG) 100 unit/mL injection 6 Units 0.05 Units/kg subcutaneous TID withmeals levothyroxine (SYNTHROID) tablet 75 mcg 75 mcg oral QAM magnesium oxide (MAG-OX) tablet 400 mg 400 mg oral Daily multivit nwrhlrqf-fcxr-MA-calcium (THERA-M) tablet 1 tablet 1 tablet oral Daily nortriptyline (PAMELOR) capsule 10 mg 10 mg oral Daily pantoprazole DR (PROTONIX) extended release tablet 40 mg 40 mg oral Daily potassium chloride ER (KLOR-CON) extended release tablet 40 mEq 40 mEq oral Daily rivaroxaban (XARELTO) tablet 20 mg 20 mg oral Daily with dinner sacubitriL-valsartan (ENTRESTO) 24-26 mg tablet 1 tablet 1 tablet oral BID CONTINUOUS MEDICATIONS: Continuous Medications Medication Dose Last Rate dexmedeTOMIDine in 0.9% sodium chloride (PRECEDEX) 400 mcg/100 mL (4 mcg/mL) infusion (premix) 0-0.7 mcg/kg/hr 0.7 mcg/kg/hr (06/14/24 0922) PRN MEDICATIONS: PRN Medications Medication Dose Route Frequency Last Admin albuterol HFA (PROVENTIL HFA,VENTOLIN HFA,PROAIR HFA) 90 mcg/actuation inhaler 2 puff 2 puff inhalation Q6H PRN (RT) dextrose oral liquid liquid 15 g 15 g oral Q15 Min PRN Or dextrose (D10W) 10% bolus 250 mL 250 mL intravenous Q15 Min PRN fluticasone propionate (FLONASE) 50 mcg/actuation nasal spray 1 spray 1 spray each nostril Daily PRN glucagon injection 1 mg 1 mg intramuscular Q30 Min PRN haloperidol (HALDOL) injection 5 mg 5 mg intramuscular Q6H PRN 5 mg at 06/12/24 1836 HYDROcodone-acetaminophen (NORCO) 5-325 mg per tablet 1 tablet 1 tablet oral QID PRN 1 tablet at 06/12/24 0659 Allergies Allergen Reactions Sulfa (Sulfonamide Antibiotics) Review of Systems: All systems were reviewed. Pertinent positives are mentioned above. Exam General appearance: alert, cooperative, no distress Neck: No JVD. No carotid Bruit Chest: Decreased air entry bilaterally,No added sounds Cardiovascular: regular rate, rhythm, normal S1 and S2, without rub, gallops PSM 2/6r Abdomen: soft without mass, non-tender, with normal bowel sounds Extremities: no clubbing, cyanosis or edema. Peripheral pulse palpable Assessment /Plan Episode of syncope -secondary to VF a --troponins are normal -CT head unremarkable -chest x-ray cardiomegaly -tikosyn discontinue with concerns for QTC prolongation Occasional PVCs present on telemetry V-fib. -5 episodes of VFib with appropriate ICD firing. -K 3.2 on admission and today it is 3.8 - magnesium 2.0 - previous [facility] that was negative for CAD. Given normal troponin no need for IP cath. Questionable endocarditis. -no vegetations seen on CHANCE last admission. - to continue antibiotics as per Infectious Disease until 06-09-24 Persistent Atrial fibrillation. - CHANCE 05/31/24 that showed left atrial appendage clot therefore no CV - placed on tikosyn 500 mcg BID with plans to CV at later date. -On xarelto for AC. -Check TSH and replete lytes. -Tikosyn and calcium channel blockers been discontinued. Dislodged catheter. in pulmonary artery noted on CT chest and CHANCE last admission. Chronic systolic congestive heart failure. -Clinically compensated at this time. -EF 30% by echo last admit. Continue BB and Entresto. -is euvolemic not requiring diuretics As blood pressure is adequate . Midodrine Diabetes type 2 -per hospitalist Hypothyroid -treated Lizzie Hong MD * Maria Luisa Thorpe, PT - 06/14/2024 10:26 AM CDT Physical Therapy INITIAL EVALUATION PATIENT'S NAME:Lei Rodriguez :1960 AGE:63 y.o. ROOM:[place] [address] TIME IN:1026 TIME OUT:1122 CURRENT DIAGNOSIS AND HOSPITAL COURSE: Patient is a 63 y.o. female with a PMHx significant for A-fib, CHF, DM II, GERD, HTN, Intellectual disability, OAB, Sleep apnea, thyroid disease and endocarditis Patient presents to ED with chief complaint of Syncope and fall. NOTED HX: a-fib, CHF, DM, GERD, HTN, intellectual disability, JOSE, overactive bladder, thyroid disease, AICD, PPM, refer to record for full medical hx. Patient Active Problem List Diagnosis Endocarditis SOB (shortness of breath) Acute on chronic systolic congestive heart failure (CMS/HCC) ([facility]) Neck pain Hyponatremia Chronic a-fib (CMS/HCC) ([facility]) Controlled type 2 diabetes mellitus with chronic kidney disease, with long-term current use of insulin ([facility]) Hypothyroidism JOSE (obstructive sleep apnea) Diabetes mellitus with hyperglycemia ([facility]) ([facility]) Traumatic hematoma of right upper arm Hypotension due to drugs Ventricular tachycardia ([facility]) Chronic diastolic congestive heart failure ([facility]) ([facility]) Endocarditis Urinary frequency Gastroesophageal reflux disease without esophagitis Paroxysmal atrial fibrillation ([facility]) ([facility]) Major depressive disorder CKD (chronic kidney disease) Past Medical History: Diagnosis Date A-fib ([facility]) ([facility]) CHF (congestive heart failure) ([facility]) ([facility]) Diabetes mellitus ([facility]) GERD (gastroesophageal reflux disease) Hypertension Intellectual disability OAB (overactive bladder) Sleep apnea Thyroid disease Past Surgical History: Procedure Laterality Date CARDIAC DEFIBRILLATOR PLACEMENT CHOLECYSTECTOMY INSERT / REPLACE / REMOVE PACEMAKER IR PICC LINE PLACEMENT > 5 YEARS N/A 06/05/2024 OTHER SURGICAL HISTORY 05/31/2024 CHANCE/CARDIOVERSION SUBJECTIVE LIVES WITH: alone, family nears nearby. Sister is in room and answering all questions, patient is slow to respond and answers questions better when they come from the sister LIVING ENVIRONMENT: house one level , one step to enter PRIOR LEVEL OF FUNCTION: indep mobility at home with her walker, family comes daily to assist as needed EQUIPMENT OWNED: walker EQUIPMENT USED: walker SOCIAL SUPPORTS: family around everyday PATIENT/FAMILY GOAL: go home MENTAL STATUS/ORIENTATION: Alert and Oriented to person and location, difficult to understand all answers OBJECTIVE PRECAUTIONS: fall, bed/chair alarm, elopement, and sitter APPEARANCE/POSTURE: sup in bed , B wrist restraints on, bed alarm in place, IV Infusing, sitter in room VITAL SIGNS: Resting BP: 109/47 Post-activity BP: 95/52 Resting heart rate: 70 Post-activity heart rate: 70 Resting O2 sat: 99% on RA Post-activity O2 sat: 95% on RA PAIN: Pre-therapy pain level: did not rate, just states it hurts where her head has stitches Pain location: head Pain intervention: Post-therapy pain level/response to intervention: reports no pain LE ASSESSMENTS: Right LE ROM: WFL Left LE ROM: WFL Right LE strength: grossly WFL Left LE strength: grossly WFL Tone: normal MOBILITY: Bed mobility: min - SBA sup to sit Transfers: min - SBA sit to stand, min A bed to chair transfer Ambulation: Distance: 40 feet x 2 with her walker that is in the room Assistive device: rolling walker Level of assist: contact guard Deviations: slow, c/o head hurting, difficulty staying focused Stairs: NT Balance/Special Tests: Static sitting balance: good Dynamic sitting balance: good Static standing balance: good- Dynamic standing balance: good- with walker AMPAC: Basic Mobility - 6 Click How much difficulty does the patient have: Turning over in bed: None How much difficulty does the patient currently have: Sitting down and standing up from a chair witharms?: A little How much difficulty does the patient have: Moving from lying on back to sitting on the side of the bed?: A little How much difficulty does the patient have: Moving to and from a bed to a chair including wheelchair?: A little How much help does the patient currently need: Walk in hospital room?: A little How much help from another person does the patient currently need: Climbing 3-5 steps with a railing?: A little Total 6 Click Score (range 6-24): 19 6 click interpretation: AM-PAC 6 Click scores > 18 = Likely home discharge AM-PAC 6 Click scores < 18 = Likely require inpatient rehab or [facility] placement at discharge APPEARANCE/POSTURE (end of session): sitting up in bed side chair on chair alarm with sitter in room, nurse states OK to leave B wrist restraints off, sister in room HANDOFF: Verbal handoff given to sitter, nurse was off the floor. ALARMS: Chair alarm in place / active EDUCATION: safety and role of PT evaluation RESPONSE TO EDUCATION: needs reinforcement ASSESSMENT PROBLEM LIST: decreased mobility , decreased endurance, decreased safety awareness, impulsivity, impaired cognition, and medical complications BARRIERS TO LEARNING: Physical, Cognitive, and Emotional BARRIERS TO DISCHARGE: Confusion, Impulsivity, Limited safety awareness, Limited insight into deficits, Decreased endurance, and Medical complications REHAB POTENTIAL/PROGNOSIS: good PLAN PT Discharge Recommendations this date: PT Recommendation/Plan: [facility] Facility Patient at high risk for: Falls, Injury due to decreased ability to care for self, Injury due to reduced functional status, Injury at home as patient has not returned to prior level of function Treatment Plan/Interventions: acute PT for gait and mobility PT Frequency during current admission: 3-5x/wk Equipment Recommendations: none - patient already owns DME at home Multi-Disciplinary Problems (from Physical Therapy) Active Problems Problem: PT Misc Start Date: 06/14/24 Goal Start Date Expected End Date End Date PT LTG - perform sup to sit with mod indep 06/14/24 06/21/24 -- Goal Start Date Expected End Date End Date PT LTG - perform sit to stand with mod indep 06/14/24 06/21/24 -- Goal Start Date Expected End Date End Date PT LTG -perform gait with walker 150 feet mod indep 06/14/24 06/21/24 -- Goal Start Date Expected End Date End Date PT LTG -perform B LE ex x 20 reps with supervision 06/14/24 06/21/24 -- If this is the last note, please consider this the discharge summary. * Mell Curran MD - 06/14/2024 10:23 AM CDT DAILY PROGRESS NOTE C/C:Fall and passed out Interval History: Being weaned off Precedex drip Consults: Ty Mcfarland MD Singh, Inderjit, MD SUBJECTIVE: Complaints: Headache No SOB, no vomiting ROS: OBJECTIVE: Vitals: Temp (24hrs), Av.9 ??C (98.4 ??F), Min:36.4 ??C (97.5 ??F), Max:37.8 ??C (100.1 ??F) Vitals: 06/14/24 0500 06/14/24 0600 06/14/24 0609 06/14/24 0704 BP: 105/51 109/62 BP Location: Patient Position: Pulse: 70 70 76 Resp: 24 21 Temp: 36.4 ??C (97.5 ??F) TempSrc: Axillary SpO2: 91% 92% Weight: Height: LDA: PICC Double Lumen 06/05/24 Non-tunneled Power #1 Red, #2 Purple, Right Basilic;Upper arm (Active) Placement Date/Time: 06/05/24 1505 Catheter Time Out Checklist Completed: Yes Hand Hygiene Performed: Yes Site Prep: Chlorhexidine Site Prep Agent has Completely Dried Before Insertion: Yes All 5 Sterile Barriers or Appropriate Barriers Used (Gl... Number of days: 7 I/O: Intake/Output Summary (Last 24 hours) at 06/14/2024 1023 Last data filed at 06/14/2024 0400 Gross per 24 hour Intake 120 ml Output -- Net 120 ml Physical Exam General: Up on bed,awake,alert,on RA, NAD SHEENT:Skin warm,dry,no rashes. No icterus,no cyanosis,no pallor,EOMI. Neck:Supple Respi:Slightly diminished breath sounds tamica Cardio:RRR,no murmur GI:Abdomen obese,soft,bowel sounds +,non tender,not distended. Extre:No edema,no cyanosis,no pallor Neuro:Up on bed,following commands, answering questions, moving all extremities Psych:No agitation. Laboratory: Recent Results (from the past 24 hour(s)) POCT glucose Collection Time: 06/13/24 11:38 AM Result Value Ref Range Glucose, POC 251 (H) 70 - 199 mg/dL Blood culture Blood Collection Time: 06/13/24 2:31 PM Specimen: Blood Result Value Ref Range Report Preliminary Report: No growth to date. Blood culture Blood Collection Time: 06/13/24 2:31 PM Specimen: Blood Result Value Ref Range Report Preliminary Report: No growth to date. POCT glucose Collection Time: 06/13/24 4:16 PM Result Value Ref Range Glucose, POC 70 70 - 199 mg/dL POCT glucose Collection Time: 06/13/24 8:05 PM Result Value Ref Range Glucose, POC 141 70 - 199 mg/dL Magnesium Collection Time: 06/14/24 4:35 AM Result Value Ref Range Magnesium 2.0 1.4 - 2.5 mg/dL Renal function panel Collection Time: 06/14/24 4:35 AM Result Value Ref Range Sodium 137 135 - 145 mmol/L Potassium, pl 4.1 3.3 - 4.9 mmol/L Chloride 103 97 - 110 mmol/L CO2 27 22 - 32 mmol/L Anion gap 7 2 - 15 mmol/L BUN 11 6 - 25 mg/dL Creatinine 0.67 0.60 - 1.10 mg/dL Glucose 185 70 - 199 mg/dL Calcium 9.2 8.5 - 10.3 mg/dL Phosphorus, pl 3.6 2.3 - 4.5 mg/dL Albumin 3.0 (L) 3.5 - 5.0 g/dL eGFR Collection Time: 06/14/24 4:35 AM Result Value Ref Range eGFR >90 >=60 mL/min/1.73 m2 POCT glucose Collection Time: 06/14/24 7:49 AM Result Value Ref Range Glucose, POC 193 70 - 199 mg/dL Radiology: Scheduled Medications: carvediloL, 25 mg, oral, BID with meals (bkfst, dinner) ceFAZolin, 2 g, intravenous, Q8H GALINA cholecalciferol, 5,000 Units, oral, Daily docusate sodium, 100 mg, oral, BID escitalopram, 5 mg, oral, Daily ferrous sulfate, 65 mg of elemental iron, oral, Daily with breakfast insulin glargine, 0.15 Units/kg, subcutaneous, Nightly insulin lispro, 0-4 Units, subcutaneous, Nightly insulin lispro, 0-5 Units, subcutaneous, TID with meals insulin lispro, 0.05 Units/kg, subcutaneous, TID with meals levothyroxine, 75 mcg, oral, QAM magnesium oxide, 400 mg, oral, Daily multivit nrkrzeun-riof-OF-calcium, 1 tablet, oral, Daily nortriptyline, 10 mg, oral, Daily pantoprazole DR, 40 mg, oral, Daily potassium chloride ER, 40 mEq, oral, Daily rivaroxaban, 20 mg, oral, Daily with dinner sacubitriL-valsartan, 1 tablet, oral, BID Current Facility-Administered Medications: albuterol HFA (PROVENTIL HFA,VENTOLIN HFA,PROAIR HFA) 90 mcg/actuation inhaler 2 puff, 2 puff, inhalation, Q6H PRN (RT), BrotherDilan MD carvediloL (COREG) tablet 25 mg, 25 mg, oral, BID with meals (bkfst, dinner), Rachel Barnes NP, 25 mg at 06/14/24922 ceFAZolin (ANCEF) 2,000 mg/100 mL in dextrose (premix) 2 g, 2 g, intravenous, Q8H GALINA, Rachel Barnes NP, Last Rate: 200 mL/hr at 06/14/24926, 2 g at 06/14/24926 cholecalciferol (VITAMIN D-3) tablet 5,000 Units, 5,000 Units, oral, Daily, Rachel Barnes NP, 5,000 Units at 06/14/24922 dexmedeTOMIDine in 0.9% sodium chloride (PRECEDEX) 400 mcg/100 mL (4 mcg/mL) infusion (premix), 0-0.7 mcg/kg/hr, intravenous, Titrated, Coleen Samuels MD, Last Rate: 20.1 mL/hr at 06/14/24921, 0.7 mcg/kg/hr at 06/14/24921 dextrose oral liquid liquid 15 g, 15 g, oral, Q15 Min PRN OR dextrose (D10W) 10% bolus 250 mL, 250 mL, intravenous, Q15 Min PRN, Rachel Barnes NP docusate sodium (COLACE) capsule 100 mg, 100 mg, oral, BID, Rachel Barnes NP, 100 mg at 06/14/24922 escitalopram (LEXAPRO) tablet 5 mg, 5 mg, oral, Daily, Coleen Samuels MD, 5 mg at 06/14/24922 ferrous sulfate delayed release tablet 65 mg of elemental iron, 65 mg of elemental iron, oral, Daily with breakfast, Rachel Barnes NP, 65 mg of elemental iron at 06/14/24922 fluticasone propionate (FLONASE) 50 mcg/actuation nasal spray 1 spray, 1 spray, each nostril, DailyPRN, Rachel Barnes NP glucagon injection 1 mg, 1 mg, intramuscular, Q30 Min PRN, Rachel Barnes NP haloperidol (HALDOL) injection 5 mg, 5 mg, intramuscular, Q6H PRN, Coleen Samuels MD, 5 mg at 06/12/24 1836 HYDROcodone-acetaminophen (NORCO) 5-325 mg per tablet 1 tablet, 1 tablet, oral, QID PRN, Dilan Palmer MD, 1 tablet at 06/12/24 0659 insulin glargine (LANTUS, SEMGLEE) 100 unit/mL injection 17 Units, 0.15 Units/kg, subcutaneous, Nightly, Rachel Barnes NP, 17 Units at 06/13/242043 insulin lispro (HumaLOG, ADMELOG) 100 unit/mL injection 0-4 Units, 0-4 Units, subcutaneous, Nightly, Rachel Barnes NP insulin lispro (HumaLOG, ADMELOG) 100 unit/mL injection 0-5 Units, 0-5 Units, subcutaneous, TID with meals, Rachel Barnes NP, 1 Units at 06/14/24923 insulin lispro (HumaLOG, ADMELOG) 100 unit/mL injection 6 Units, 0.05 Units/kg, subcutaneous, TID with meals, Rachel Barnes, ALLY, 6 Units at 06/14/24923 levothyroxine (SYNTHROID) tablet 75 mcg, 75 mcg, oral, QAM, Rachel Barnes, ALLY, 75 mcg at 06/14/24609 magnesium oxide (MAG-OX) tablet 400 mg, 400 mg, oral, Daily, Seth Flores MD, 400 mg at 06/14/24922 multivit pjuxdssn-wkoq-ST-calcium (THERA-M) tablet 1 tablet, 1 tablet, oral, Daily, Rachel Barnes NP, 1 tablet at 06/14/24922 nortriptyline (PAMELOR) capsule 10 mg, 10 mg, oral, Daily, Rachel Barnes NP, 10 mg at 06/14/[address] (PROTONIX) extended release tablet 40 mg, 40 mg, oral, Daily, Rachel Barnes NP, 40 mg at 06/14/24922 potassium chloride ER (KLOR-CON) extended release tablet 40 mEq, 40 mEq, oral, Daily, Coleen Samuels MD, 40 mEq at 06/14/24922 rivaroxaban (XARELTO) tablet 20 mg, 20 mg, oral, Daily with dinner, Rachel Barnes NP, 20 mgat 06/12/24 172 sacubitriL-valsartan (ENTRESTO) 24-26 mg tablet 1 tablet, 1 tablet, oral, BID, Rachel Barnes NP, 1 tablet at 06/14/24922 Continuous Medications: dexmedeTOMIDine, 0-0.7 mcg/kg/hr, Last Rate: 0.7 mcg/kg/hr (06/14/24921) PRN Medications: albuterol HFA dextrose OR dextrose fluticasone propionate glucagon haloperidol HYDROcodone-acetaminophen Hospital course: 63 y.o. Morbidly obese [place] pt with a PMHx significant for A-fib, CHF, DM II, GERD, HTN, Intellectualdisability, OAB, Sleep apnea, thyroid disease and endocarditis Was brought to ED with chief complaint of fall and passed out ASSESSMENT/PLAN: All diagnoses were present on admission unless otherwise stated. Principal Problem: --Syncope due to Ventricular tachycardia- AICD interrogated at [facility] by [facility], noted 5 discharges on the report. Troponins trended 0.018, 0.030 ( 0.000-0.034) Patient currently in Sinus rhythm on Telemetry. Cardiology has seen and has stopped several medications including Tikosyn. Decreased Lexapro to 5 mg a day Active problems: --DM II- Accu check ACHS cover with SSI, continue Lantus and basal meal time Humalog BS 148-190 --Chronic Reduced ejection fraction heart failure- cardiomegaly noted on chest x-ray, OSH BNP 1600 (19.9-100) no noted edema continue Lasix 40 mg daily, Coreg 25 mg BID and Entresto 24/26 BID, last Echo 05/30/24 EF 30% diastolic dysfunction. --Recent H/O Endocarditis- Continue Ancef 2g every 8 hours for 8 more days --Hypothyroidism- Continue Levothyroxine 75 mcg daily --Urinary frequency-Continue Mirabeqron 25 mg daily --Hypotension- continue midodrine 5 mg TID. Now resolved --GERD-Continue Protonix 40 mg daily --A-fib- Cardizem has been discontinued . Cardiology is following Continue Xarelto 20 mg daily with dinner --CKD stage II- Stable. consulted Nephrology --Depression- Decreased Lexapro dose to 5 mg due to VTach Continue nortriptyline 10 mg daily --Agitation 06/12: On Precedex drip. H/O Intellectual disability, developmental delay+. Consulted and D/W Psych.Recommended prn IM Zyprexa 5 mg q 6 hours and wean off Precedex Family did not agree for Zyprexa yesterday. Now Sisters are agreeable for prn Zyprexa IM Will wean her off Precedex drip and start prn IM Zyprexa 06/14 UA neg --Headache following syncope with scalp lac requiring suture : 06/14 CT Head neg DVT Prophylaxis with Xarelto Code status: Full code D/W RN D/W Sister FF and on phone Medical Decision Making complexity: Moderate Expected date of discharge: Barriers to discharge:Agitation on precedex drip Discharge disposition: nursing home facility versus home Mell Curran MD 06/14/2024 10:23 AM [facility], Hospitalist * Seth Flores MD - 06/13/2024 9:03 PM CDT Nephrology Progress Note [facility] SUBJECTIVE 06/13 Appears comfortable. All labs and data reviewed. K 3.9, mg 2.0. No further dysrhythmia reported. Uncooperative and agitated earlier. 06/12 Overall stable. All labs and data reviewed. Bp soft, confused. 2 plus blood in urine. OBJECTIVE Vitals: Vitals: 06/13/24 1800 06/13/24 1900 06/13/24195806/13/241999 BP: 115/52 119/63 119/63 93/57 BP Location: Left arm Left arm Patient Position: HOB 30 degrees HOB 30 degrees Pulse: 74 87 89 Resp: 25 (!) 32 19 Temp: 36.9 ??C (98.4 ??F) TempSrc: Axillary SpO2: 95% 95% 95% Weight: Height: Intake/Output Summary (Last 24 hours) at 06/13/2024 2103 Last data filed at 06/13/20241999 Gross per 24 hour Intake 182.25 ml Output -- Net 182.25 ml REVIEW OF SYSTEMS Review of Systems Constitutional: Negative. HENT: Negative. Eyes: Negative. Respiratory: Negative. Cardiovascular: Negative. Gastrointestinal: Negative. Genitourinary: Negative. Musculoskeletal: Negative. Skin: Negative. Allergic/Immunologic: Negative. Hematological: Negative. All other systems reviewed and are negative. PHYSICAL EXAM Physical Exam Constitutional: Appears well-developed. HENT: wnl Head: Normocephalic. Eyes: Pupils are equal, round, and reactive to light. Neck: Normal range of motion. Neck supple. Cardiovascular: Normal rate. Pulmonary/Chest: Effort normal and breath sounds normal. Abdominal: Soft. Musculoskeletal: Normal range of motion. Neurological: Alert, oriented. Skin: Skin is warm. Nursing note and vitals reviewed. MEDICATIONS Current Facility-Administered Medications: albuterol HFA (PROVENTIL HFA,VENTOLIN HFA,PROAIR HFA) 90 mcg/actuation inhaler 2 puff, 2 puff, inhalation, Q6H PRN (RT), Brother, Dilan Rodriguez MD carvediloL (COREG) tablet 25 mg, 25 mg, oral, BID with meals (bkfst, dinner), Rachel Barnes NP, 25 mg at 06/13/24 0914 ceFAZolin (ANCEF) 2,000 mg/100 mL in dextrose (premix) 2 g, 2 g, intravenous, Q8H GALINA, Rachel Barnes NP, Last Rate: 200 mL/hr at 06/13/24 1739, 2 g at 06/13/24 1739 cholecalciferol (VITAMIN D-3) tablet 5,000 Units, 5,000 Units, oral, Daily, Rachel Barnes NP, 5,000 Units at 06/13/24 0917 dexmedeTOMIDine in 0.9% sodium chloride (PRECEDEX) 400 mcg/100 mL (4 mcg/mL) infusion (premix), 0-0.7 mcg/kg/hr, intravenous, Titrated, Coleen Samuels MD, Last Rate: 14.39 mL/hr at 06/13/241999, 0.5 mcg/kg/hr at 06/13/241999 dextrose oral liquid liquid 15 g, 15 g, oral, Q15 Min PRN OR dextrose (D10W) 10% bolus 250 mL, 250 mL, intravenous, Q15 Min PRN, Rachel Barnes NP docusate sodium (COLACE) capsule 100 mg, 100 mg, oral, BID, Rachel Barnes NP, 100 mg at 06/12/24 0848 escitalopram (LEXAPRO) tablet 5 mg, 5 mg, oral, Daily, Coleen Samuels MD, 5 mg at 06/13/24 0915 ferrous sulfate delayed release tablet 65 mg of elemental iron, 65 mg of elemental iron, oral, Daily with breakfast, Rachel Barnes NP, 65 mg of elemental iron at 06/13/24 0917 fluticasone propionate (FLONASE) 50 mcg/actuation nasal spray 1 spray, 1 spray, each nostril, DailyPRN, Rachel Barnes NP glucagon injection 1 mg, 1 mg, intramuscular, Q30 Min PRN, Rachel Barnes NP haloperidol (HALDOL) injection 5 mg, 5 mg, intramuscular, Q6H PRN, Coleen Samuels MD, 5 mg at 06/12/24 1836 HYDROcodone-acetaminophen (NORCO) 5-325 mg per tablet 1 tablet, 1 tablet, oral, QID PRN, Dilan Palmer MD, 1 tablet at 06/12/24 0659 insulin glargine (LANTUS, SEMGLEE) 100 unit/mL injection 17 Units, 0.15 Units/kg, subcutaneous, Nightly, Rachel Barnes NP, 17 Units at 06/13/24 2044 insulin lispro (HumaLOG, ADMELOG) 100 unit/mL injection 0-4 Units, 0-4 Units, subcutaneous, Nightly, Rachel Barnes, ALLY insulin lispro (HumaLOG, ADMELOG) 100 unit/mL injection 0-5 Units, 0-5 Units, subcutaneous, TID with meals, Rachel Barnes NP, 3 Units at 06/13/24 1208 insulin lispro (HumaLOG, ADMELOG) 100 unit/mL injection 6 Units, 0.05 Units/kg, subcutaneous, TID with meals, Rachel Barnes NP, 6 Units at 06/13/24 1208 levothyroxine (SYNTHROID) tablet 75 mcg, 75 mcg, oral, QAM, Rachel Barnes NP, 75 mcg at 06/12/24 0635 magnesium oxide (MAG-OX) tablet 400 mg, 400 mg, oral, Daily, Seth Flores MD, 400 mg at 06/13/24 0915 multivit lstrydbf-waqe-RK-calcium (THERA-M) tablet 1 tablet, 1 tablet, oral, Daily, Rachel Barnes NP, 1 tablet at 06/13/24 0917 nortriptyline (PAMELOR) capsule 10 mg, 10 mg, oral, Daily, Rachel Barnes NP, 10 mg at 06/13/[address] (PROTONIX) extended release tablet 40 mg, 40 mg, oral, Daily, Rachel Barnes NP, 40 mg at 06/13/24 0918 potassium chloride ER (KLOR-CON) extended release tablet 40 mEq, 40 mEq, oral, Daily, Coleen Samuels MD, 40 mEq at 06/13/24 09 rivaroxaban (XARELTO) tablet 20 mg, 20 mg, oral, Daily with dinner, Rachel Barnes NP, 20 mgat 06/12/24 1727 sacubitriL-valsartan (ENTRESTO) 24-26 mg tablet 1 tablet, 1 tablet, oral, BID, Rachel Barnes NP, 1 tablet at 06/13/24 09 Lab/Radiology/Diagnostic Review: Recent Results (from the past 24 hour(s)) Magnesium Collection Time: 06/13/24 2:59 AM Result Value Ref Range Magnesium 2.0 1.4 - 2.5 mg/dL Renal function panel Collection Time: 06/13/24 2:59 AM Result Value Ref Range Sodium 140 135 - 145 mmol/L Potassium, pl 3.9 3.3 - 4.9 mmol/L Chloride 104 97 - 110 mmol/L CO2 28 22 - 32 mmol/L Anion gap 8 2 - 15 mmol/L BUN 11 6 - 25 mg/dL Creatinine 0.64 0.60 - 1.10 mg/dL Glucose 149 70 - 199 mg/dL Calcium 9.2 8.5 - 10.3 mg/dL Phosphorus, pl 3.6 2.3 - 4.5 mg/dL Albumin 3.2 (L) 3.5 - 5.0 g/dL eGFR Collection Time: 06/13/24 2:59 AM Result Value Ref Range eGFR >90 >=60 mL/min/1.73 m2 POCT glucose Collection Time: 06/13/24 7:30 AM Result Value Ref Range Glucose, POC 201 (H) 70 - 199 mg/dL POCT glucose Collection Time: 06/13/24 11:38 AM Result Value Ref Range Glucose, POC 251 (H) 70 - 199 mg/dL POCT glucose Collection Time: 06/13/24 4:16 PM Result Value Ref Range Glucose, POC 70 70 - 199 mg/dL POCT glucose Collection Time: 06/13/24 8:05 PM Result Value Ref Range Glucose, POC 141 70 - 199 mg/dL Recent Labs Lab Units 06/12/24 0646 CLARITY U Clear COLOR U Yellow KETONES UR Negative NITRITE UR Negative SPEC GRAV U 1.026 UROBILINOGEN UR mg/dL <2.0 WBC UR QT /HPF 0-5 CTA Upper Extremity Right W WO Contrast Result Date: 06/07/2024 Narrative: EXAMINATION: CTA UPPER EXTREMITY RIGHT W WO CONTRAST HISTORY: Right upper arm swelling ORDER DATE: 06/06/2024 10:40 PM TECHNIQUE: Imaging protocol: Computed tomographic angiography of the right upper extremity with contrast, including non-contrast images if performed. 3D rendering (Not supervised by radiologist): MIP and/or 3D reconstructed images were created by the technologist. Contrast material: OPTIRAY 350; Contrast volume: 119 ml IV COMPARISON: CT CHEST PE (CTA) W CONTRAST 05/30/2024 FINDINGS: Tubes, catheters and devices: There is a PICC line inserted through the right basilicvein at the level of the distal arm. There is mild fat stranding within the anterior distal arm, without sizable hematoma or drainable fluid collection. No evidence of active extravasation. Pulmonaryarteries: There is a partially visualized curvilinear metallic structure within the right pulmonaryartery, similar to prior. Right subclavian artery: No acute findings. No occlusion or significant stenosis. Axillary artery: No acute findings. No occlusion or significant stenosis. Brachial artery: No acute findings. No occlusion or significant stenosis. Radial artery: No acute findings. No occlusion or significant stenosis. Ulnar artery: No acute findings. No occlusion or significant stenosis. Veins: Peripheral intravenous access is seen within the cephalic vein at the level of the antecubital fossa. Impression: 1. Patent arterial system of the right upper extremity as detailed above. 2. No evidence of hematoma or drainable fluid collection Stat report by [facility] Electronically signed by: Andrea Abernathy M.D. ECG 12 lead Result Date: 06/06/2024 Narrative: Vent Rate: 78 bpm RR Interval: 763 msec [place] Interval: 0 msec QRS Duration: 154 msec QT Interval: 473 msec QTC Interval: 506 msec P-R-T [place]: 0 - 23 - 94 degrees IMPRESSION: ATRIAL FIBRILLATION Occasional ventricular pacing INDETERMINATE AXIS Left bundle branch block ABNORMAL ECG Electronically Signed By: Dr. Shiloh Muhammad [facility] US Vein Duplex Upper Extremity Right Limited, Unilateral Result Date: 06/06/2024 Narrative: EXAMINATION: US VEIN DUPLEX UPPER EXTREMITY RIGHT LIMITED, UNILATERAL HISTORY: The patient is a 63-year-old female who presents with swelling in the right upper extremity. TECHNIQUE: Rightupper extremity venous duplex study was performed with hahn scale imaging, color Doppler imaging and spectral waveform analysis. FINDINGS: There is normal compressibility and phasicity in both internal jugular and subclavian veins as well as the right axillary, brachial, radial, ulnar, cephalic andbasilic veins. Imaging of these veins reveals no thrombus within the lumen. Impression: There is no evidence of acute DVT in the right upper extremity. Electronically signed by: Conrad Davila M.D. XR Chest Pa Lateral 2 Views Result Date: 06/06/2024 Narrative: EXAMINATION: XR CHEST PA LATERAL 2 VIEWS HISTORY: The patient is a 63-year-old female who has had placement of a PICC line. Comparison made with the previous study dated 12/26/2020. TECHNIQUE: AP and lateral view of the chest. FINDINGS: The distal tip of the right PICC line is in the distal superior vena cava. Cardiomegaly with aortic atherosclerosis. No failure. No active infiltrate. Impression: No failure. Electronically signed by: Conrad Davila M.D. IR PICC Line Placement Over 5 Years of Age Result Date: 06/05/2024 Narrative: EXAMINATION: IR PICC LINE PLACEMENT OVER 5 YEARS OF AGE DATE: 06/05/2024 2:05 PM HISTORY:sepsis Unsuccessful attempt at bedside PICC line placement by in-house vascular team. TECHNIQUE: The risks, benefits, and alternatives were discussed and informed consent was obtained. Prior to beginn ing the procedure, universal protocol was performed to confirm the patient's identity and the planned procedure. Maximum sterile barriers including cap, mask, hand hygiene, sterile gloves, sterile gown, large sterile drape, sterile gel, sterile ultrasound probe cover, and 2% chlorhexidine for cutaneous antisepsis were used. The skin over the right basilic vein was sterilely prepped, draped, and infiltrated with lidocaine. Prior to the procedure, this target vessel was evaluated by ultrasound and an image of the patent vessel demonstrating vessel patency was recorded in the patient's electronic medical record. This vessel was then accessed using real-time ultrasound guidance. A guidewire waspassed centrally using fluoroscopic guidance. The intravascular length from the access site to the right atrium was assessed. After dilating the tract, a 45 cm, 5-[place] dual-lumen PICC was inserted through the peel-away sheath. The peel-away sheath was then removed. The catheter was flushed and sec ured in place. A sterile dressing was applied. The final fluoroscopic image demonstrates the catheter with its tip at the cavoatrial junction. No complications were identified. The catheter is ready for immediate use. When treatment is completed, this catheter can be removed at the bedside according to standard hospital protocol. Impression: Successful PICC placement using ultrasound guidance. Electronically signed by: Blaine Nash M.D. XR Chest 1 View Result Date: 06/05/2024 Narrative: EXAMINATION: XR CHEST 1 VIEW HISTORY: The patient is a 63-year-old female who has had anattempted PICC line placement. Comparison made with the previous study dated 05/29/2024. TECHNIQUE:AP portable view of the chest. FINDINGS: Cardiomegaly with aortic atherosclerosis. No failure. No active infiltrate. Impression: Cardiomegaly. Electronically signed by: Conrad Davila M.D. ECG 12 lead Result Date: 06/02/2024 Narrative: Vent Rate: 86 bpm RR Interval: 697 msec OH Interval: 0 msec QRS Duration: 157 msec QT Interval: 470 msec QTC Interval: 513 msec P-R-T [place]: 0 - 38 - 88 degrees IMPRESSION: ATRIAL FIBRILLATION WITH ABERRANT CONDUCTION OR VENTRICULAR PREMATURE COMPLEXES LEFT BUNDLE BRANCH BLOCK [120+ ms QRS DURATION, 80+ ms Q/S IN V1/V2, 85+ ms R IN I/aVL/V5/V6] ABNORMAL ECG Compared to prior EKG, ventricular pacing is no longer present Electronically Signed By: Antonio Carlos MD ECG 12 lead Result Date: 06/02/2024 Narrative: Vent Rate: 76 bpm RR Interval: 782 msec OH Interval: 0 msec QRS Duration: 158 msec QT Interval: 494 msec QTC Interval: 525 msec P-R-T [place]: 0 - 116 - 120 degrees IMPRESSION: ATRIAL FIBRILLATION WITH demand ventricular pacemaker MARKED RIGHT AXIS DEVIATION [QRS AXIS > 100] INTRAVENTRICULAR CONDUCTION DELAY [130+ ms QRS DURATION] ABNORMAL ECG Compared to prior EKG, demand ventricular pacing is new Electronically Signed By: Antonio Carlos MD CT Abdomen Pelvis W Contrast Result Date: 06/01/2024 Narrative: EXAMINATION: CT ABDOMEN PELVIS W CONTRAST DATE: 06/01/2024 1:05 PM HISTORY: Sepsis. COMPARISON: 02/28/2017. TECHNIQUE: Transaxial computed tomographic images of the abdomen and pelvis were obtained after the administration of 119 mL of Optiray 350 intravenously. Multiplanar coronal and sagittal images were reformatted. FINDINGS: Similar scarring in the left lung base unchanged since 2017. There is cardiomegaly and mosaic attenuation in the lung bases suggestive of pulmonary edema. There is a small hiatal hernia. Cholecystectomy. Diffuse hepatic steatosis. The spleen, pancreas, and adrenal glands are unremarkable. Kidneys are unremarkable. No hydroureteronephrosis. Unopacified bladder is unremarkable. Uterus and adnexal structures are unremarkable. No free fluid in the pelvis. There is diverticulosis. No evidence of diverticulitis. The small bowel is unremarkable. Mild atherosclerotic calcifications in the aorta and branch vessels. Subcutaneous tissues are unremarkable. No pathologic by size criteria lymphadenopathy. Mild bilateral sacroiliac joint arthrosis. No acute fracture. No pathologic by size criteria lymphadenopathy. Impression: 1. Mosaic attenuation in the lung bases suggestive of interstitial pulmonary edema. 2. Diffuse hepatic steatosis. 3. Small hiatal hernia. 4. Trace left pleural effusion. 5. Additional chronic or incidental findings as above. Electronically signed by: Azeem Robins II, D.O. ECG 12 lead Result Date: 06/01/2024 Narrative: Vent Rate: 102 bpm RR Interval: 584 msec OH Interval: 0 msec QRS Duration: 149 msec QT Interval: 387 msec QTC Interval: 446 msec P-R-T [place]: 0 - 115 - 66 degrees IMPRESSION: ATRIAL FIBRILLATION WITH RAPID VENTRICULAR RESPONSE WITH ABERRANT CONDUCTION OR VENTRICULAR PREMATURE COMPLEXES INDETERMINATE AXIS INTRAVENTRICULAR CONDUCTION DELAY [130+ ms QRS DURATION] ABNORMAL ECG NO CHANGE FROM PREVIOUS TRACING NOTED Electronically Signed By: Antonio Carlos MD ECG 12 lead Result Date: 06/01/2024 Narrative: Vent Rate: 83 bpm RR Interval: 716 msec OH Interval: 0 msec QRS Duration: 154 msec QT Interval: 409 msec QTC Interval: 449 msec P-R-T [place]: 0 - 123 - 189 degrees IMPRESSION: ATRIAL FIBRILLATION INTRAVENTRICULAR CONDUCTION DELAY LATERAL MYOCARDIAL INFARCTION , OF INDETERMINATE AGE Electronically Signed By: Cristino Kingsley MD, [facility] ECG 12 lead Result Date: 05/31/2024 Narrative: Vent Rate: 74 bpm RR Interval: 810 msec OH Interval: 0 msec QRS Duration: 151 msec QT Interval: 449 msec QTC Interval: 476 msec P-R-T [place]: 0 - 102 - 146 degrees IMPRESSION: VENTRICULAR PACED RHYTHM Electronically Signed By: Cristino Kingsley MD [facility] ECG 12 lead Result Date: 05/31/2024 Narrative: Vent Rate: 76 bpm RR Interval: 785 msec OH Interval: 0 msec QRS Duration: 150 msec QT Interval: 471 msec QTC Interval: 501 msec P-R-T [place]: 0 - 80 - 97 degrees IMPRESSION: ATRIAL FIBRILLATION WITH ABERRANT CONDUCTION OR VENTRICULAR PREMATURE COMPLEXES INTRAVENTRICULAR CONDUCTION DELAY [130+ ms QRS DURATION] ABNORMAL ECG Electronically Signed By: Dr. Shiloh Muhammad [facility] ECG 12 lead Result Date: 05/30/2024 Narrative: Vent Rate: 109 bpm RR Interval: 548 msec OH Interval: 0 msec QRS Duration: 149 msec QT Interval: 398 msec QTC Interval: 462 msec P-R-T [place]: 0 - 96 - 89 degrees IMPRESSION: ATRIAL FIBRILLATION WITH RAPID VENTRICULAR RESPONSE BORDERLINE RIGHT AXIS DEVIATION [QRS AXIS > 90] INTRAVENTRICULAR CONDUCTION DELAY [130+ ms QRS DURATION] ABNORMAL ECG Unchanged compared to an EKG done earlier on May 30, 2024 Electronically Signed By: Dr. Shiloh Muhammad [facility] CT Chest WO Contrast Result Date: 05/30/2024 Narrative: EXAMINATION: Computed tomography of the chest without intravenous contrast HISTORY: Right lower lobe pulmonary artery for and body TECHNIQUE: Transaxial computed tomographic images of the chest were obtained without intravenous contrast according to the standard protocol. COMPARISON: 05/30/[address] angiography. FINDINGS: Bilateral small pleural effusions and atelectasis. There is trace pulmonary edema. Heart is enlarged. Small volume pericardial effusion. Pacemaker defibrillator leads terminate in the right atrium and right ventricle. There left hilar calcified granulomas. There is a curvilinear density originating in the right lower lobe pulmonary artery and extending distally into a lateral basilar subsegmental branch vessel. Visualized portions of the upper abdomen demonstrate changes of cholecystectomy. No suspicious osseous lesions. Impression: 1. Redemonstrated curvilinear radiopaque density extending from the proximal right lower lobe pulmonary artery into a subsegmental lateral basilar branch favors a catheter or wire fragment. 2. Findings most suggestive of heart failure with cardiomegaly, small volume pericardial effusion, and small bilateral pleural effusions and mild pulmonary edema. Electronically signed by: Abilio Post M.D. Transthoracic Echo (TTE) Complete W Doppler/CF Result Date: 05/30/2024 Narrative: [place] [address] Echocardiogram Report Patient Name: LEI RODRIGUEZ V : 1960 Study Date: 05/30/2024 7:47:08 AM Gender: F Tech: GUILHERME Location: [id number] Ref Provider: TY MCFARLAND Height(Cm): 165 BSA: 2.43 Weight(Kg): 128.7 Heart Rate: 94 BP: 135/84 Quality: Good Order Provider: TY MCFARLAND PROCEDURES: Echocardiographic Report: Transthoracic echocardiogram with complete 2D, M-Mode, color Doppler examination and contrast. INDICATIONS: Endocarditis.Measurements: 2D/M Mode Doppler Measurement Value Normal Range Measurement Value Normal Range EF Teich 2D 21.6 [ 54.0 - 74.0 ] percent MARIANA Vmax 3.09 cm2 EF Mod 4C 33.1 percent AV Mean PG 3 mmHg BGMSj3D 5.71 [ 3.80 - 5.20 ] cm [...] ] m/s LA Volume Index 22.99 [ 16.00- 34.00 ] cc/m2 MV A Peak Chadd [...] RVSP 38.00 [ 10.00 - 36.00 ] mmHgE` 0.05 m/s E/E` 19.29 Measurement Value Normal [...] Right Ventricle: Normal right ventricular systolic function. Pac emaker noted. Right Atrium: There is mild enlargement [...] peak RVSP is 42 mmHg. Mild to m oderate tricuspid regurgitation. Pericardium: Trivial pericardial effusion. Aorta: Mild aortic rootcalcification. IVC: Dilated IVC without respiratory collapse consistent [...] MELISSA 2024-05-30 09:18:05 CDT CC: CC: CC: XR Chest 1 View Result Date: 05/30/2024 Narrative: EXAMINATION: XR CHEST 1 VIEW History: Shortness of breath Impression: Single view chest exam similar for interpretation with comparison to prior from 03/07/2017. Correlation made with CT from the same day There are diffuse interstitial and airspace opacitiescompatible with moderate pulmonary edema. Likely small effusions. Heart is enlarged. There is a curvilinear density projecting over the right lower lung which corresponds to a catheter or wire in theright lower lobe pulmonary arteries when correlated with the CT examination. This finding is not present on the prior 2016 examination. The presence of this finding was discussed by Dr. Abrenathy with Dr. Hollis and documented by Dr. Hollis in the medical record on 05/30/2024 at 457. Electronically signed by: Abilio Post M.D. ECG 12 lead Result Date: 05/30/2024 Narrative: Vent Rate: 86 bpm RR Interval: 697 msec [place] Interval: 0 msec QRS Duration: 145 msec QT Interval: 438 msec QTC Interval: 481 msec P-R-T [place]: 0 - 101 - 95 degrees IMPRESSION: ATRIAL FIBRILLATION RIGHT AXIS DEVIATION [QRS AXIS > 100] INTRAVENTRICULAR CONDUCTION DELAY [130+ ms QRS DURATION] ABNORMAL ECG Unchanged compared to 05/29/2021 Electronically Signed By: Dr. Shiloh Muhammad [facility] CT Chest PE (CTA) W Contrast Result Date: 05/30/2024 Narrative: EXAMINATION: CT CHEST PE (CTA) W CONTRAST HISTORY: Chest pain ORDER DATE: 05/30/2024 3:20AM TECHNIQUE: CT chest images were acquired using a chest angiographic protocol with 3-D imaging optimized for PE is obtained [id number] mL of Optiray 350 IV. 2D Coronal and sagittal reformats were obtained. 3-D rendering (not supervised by radiologist) MIP and/or 3-D reconstructed images were created by the technologist. FINDINGS: Dual lead pacer device implanted in the left chest wall with leads in the right atrium and right ventricle. Pulmonary arteries: Dilated main pulmonary artery measuring 4.9 cm. Some of the segmental branches are not well assessed for exclusion of subtle emboli due to excessive motion. Otherwise centrally no pulmonary artery emboli. A dislodged catheter is visualized in the distal right pulmonary artery extending into the lobar and segmental right lower lobe pulmonary artery branch, image [id number] 134/coronal series 9. Aorta: Unremarkable. No aortic aneurysm. No aortic dissection. Lungs: Diffuse multilobar septal thickening, peribronchial thickening and increasedground-glass alveolar airspace opacity of the lung parenchyma representing findings of pulmonary interstitial edema. Pleural spaces: Mild left and trace to mild right pleural effusions. Heart: Four-chamber enlarged heart. Reflux of contrast within the hepatic veins and IVC may suggest right heart failure. Trace to mild pericardial effusion present. Lymph nodes: Multiple calcified mediastinal and hilar lymph nodes which suggest prior exposure to granulomatous disease. No lymphadenopathy. Diaphragm: There is a small hiatal hernia. Liver: Coarsened nodular hepatic parenchyma may suggest underlying chronic hepatocellular disease. Liver is prominent in size measuring 17.5 cm. Gallbladder and biliary ducts: Cholecystectomy. Bones/joints: No acute fracture. Soft tissues: Unremarkable. Impression: 1. Motion degraded evaluation of the pulmonary arteries. Some of the segmental branchesare not well assessed for exclusion of subtle emboli. Otherwise centrally no pulmonary artery emboli. 2. Pulmonary arterial hypertension and dislodged the catheter visualized in the distal right pulmonary artery and right lower lobe lobar and segmental pulmonary artery branch. 3. CHF, pulmonary edema and small bilateral pleural effusions. 4. Possible congestive cirrhosis. Correlate with LFTs. 5. Additional findings as described above. Stat report by [facility] . Electronically signed by: Andrea Abernathy M.D. CT Cervical Spine WO Contrast Result Date: 05/30/2024 Narrative: EXAMINATION: CT CERVICAL SPINE WO CONTRAST HISTORY: Neck pain ORDER DATE: 05/29/2024 10:55 PM TECHNIQUE: Multiple helical axial images of the cervical spine were obtained without the administration of contrast. Coronal and sagittal reformatted images were included. FINDINGS: Bones: No acute fracture. Chronic mild C6 loss of vertebral body height present. Normal alignment. Mild right C3-C4 facet arthrosis. C3-C4 disc narrowing and partially calcified bulging disc contributing to [id number] central spinal stenosis. Disc osteophyte complex also contributing to nanr-la-cbnxoixp central spinal stenosis at C4-C5 level. No significant disc bulge or herniation. No severe spinal canal stenosis. Uncovertebral joint hypertrophy contributing to multilevel bilateral neural foraminal stenosis. Lungs: Lung apices are normal. Soft tissues: Unremarkable. Impression: No acute cervical spine injury. Stat report by [facility] Stat report by [facility] Electronically signed by: Andrea Abernathy M.D. CT Head WO Contrast Result Date: 05/30/2024 Narrative: EXAMINATION: CT head without contrast HISTORY: Headache, new or worsening (Age >= 50y) TECHNIQUE: Noncontrast CT of the brain was performed with images acquired from skull base to vertex. COMPARISON: None available. FINDINGS: Brain: Global volume loss and cortical dilatation present. No hemorrhage. Mild chronic microvascular ischemic changes of the periventricular white matter. No mass effect. No edema. Cerebral ventricles: No ventriculomegaly. Paranasal sinuses: Visualized sinuses are unremarkable. No fluid levels. Mastoid air cells: Visualized mastoid air cells are well aerated. Bones: Unremarkable. No acute fracture. Soft tissues: Unremarkable. Impression: No acute intracranial findings. Stat report by [facility] Electronically signed by: Andrea Abernathy M.D. ECG 12 lead Result Date: 05/30/2024 Narrative: Vent Rate: 93 bpm RR Interval: 645 msec [place] Interval: 0 msec QRS Duration: 97 msec QT Interval: 197 msec QTC Interval: 247 msec P-R-T [place]: 0 - 118 - 0 degrees IMPRESSION: ATRIAL FIBRILLATION WITH ABERRANT CONDUCTION OR VENTRICULAR PREMATURE COMPLEXES LOW QRS VOLTAGE [QRS DEFLECTION < 0.5/1.0 mV IN LIMB/CHEST LEADS] SEPTAL MYOCARDIAL INFARCTION , PROBABLY OLD [40+ ms Q WAVE IN V1/V2]Nonspecific IVCD LATERAL MYOCARDIAL INFARCTION , OF INDETERMINATE AGE [40+ ms Q WAVE AND/OR ST/T ABNORMALITY IN I/aVL/V5/V6] ABNORMAL ECG Electronically Signed By: Antonio Carlos MD ASSESSMENT/PLAN Controlled type 2 diabetes mellitus with chronic kidney disease, with long-term current use of insulin (HCC) Hypothyroidism Hypotension due to drugs Chronic diastolic congestive heart failure (CMS/HCC) (HCC) Endocarditis Urinary frequency Gastroesophageal reflux disease without esophagitis Paroxysmal atrial fibrillation (CMS/HCC) (HCC) Major depressive disorder CKD (chronic kidney disease) CKD ? Hypokalemia. Recent endocarditis. Recurrent ICD firing. A fib. DM/HTN. Hx of CHF. Hypothyroidism. PLAN Renal fn is stable, ckd/gerald ocasio not indicated. Hold lasix, keep K over 4, Mg over 2. Cards ocasio, ICD interrogation, Hold Tikosyn/BB. Daily RFP. Will d/w cardiology Repeat CHANCE. 06/12, d/w cards, monitor k, mg and cr, recs as above, monitor microscopic hematuria, start mgo and kcl. 06/13, K and mg acceptable, rpt ua, continue K and mg at current dose. I can be reached at [phone] with any concerns. Thank you Mell Curran MD for the consult. Seth Flores MD [employer] [phone] * Stacy Richardson - 06/13/2024 12:03 PM CDT Behavioral Health Integration (BHI) Navigator Note Navigator-Aware of consult. QMHP will be assigned when available. Stacy Richardson Behavioral Health Navigator * Eben Pettit MD - 06/13/2024 11:33 AM CDT Infectious Disease Consult Consulting Physician: Eben Pettit MD. Reason for consult: Ongoing IV antibiotic therapy new admission for syncope Interval history/review of systems Very agitated Sitter in room, started on Precedex Low-grade temperatures T-max 100?? Objective: Vitals: 24hr Min/Max: Temp Min: 36.5 ??C (97.7 ??F) Max: 37.8 ??C (100 ??F) Pulse Min: 70 Max: 133 BP Min: 95/58 Max: 148/92 Resp Min: 15 Max: 30 SpO2 Min: 92 % Max: 99 % Most Recent : Vitals: 06/13/24 0800 06/13/24 0900 06/13/24 0914 06/13/24 1000 BP: 143/83 110/94 110/94 135/73 Pulse: 70 71 74 72 Resp: Temp: TempSrc: SpO2: 98% 99% 96% Weight: Height: Physical Exam: General appearance: alert, cooperative, no distress HEENT: (-)icterus, Oropharnyx is normal, forehead with stitches, site is clean Neck: No palpable LN Lungs: breath sounds normal and symmetric; minimal respiratory effort, no r/w/c Heart: normal S1 and S2, no m/r/g Abdomen: soft without mass, non-tender, +bowel sounds, no HSM Extremities/Skin: no gross deformities, FROM, no new rashes, no ulcerations Vascular: no Edema, pulses present bilaterally Neuro: No focal deficits Psych: Appropriate mood and affect Double-lumen PICC line right upper extremity placed 06/05, site is clean Labs Reviewed. Recent Labs Lab Units 06/11/24 0107 06/08/24 0430 06/07/24 0400 WBC K/cumm 6.0 6.3 5.5 6.1 HEMOGLOBIN g/dL 11.5* 11.6* 11.9 11.8* HEMATOCRIT % 35.8 35.8 37.0 36.7 PLATELETS K/cumm 314 286 295 299 Recent Labs Lab Units 06/13/24 0259 06/12/24 0344 06/11/24 0107 BUN SERUM mg/dL 11 15 15 CREATININE mg/dL 0.64 0.63 0.63 Lab Results Component Value Date ALT 5 (L) 06/08/2024 AST 21 06/08/2024 ALKPHOS 217 (H) 06/08/2024 BILITOT 0.5 06/08/2024 Cultures No results found for the last 90 days. Imaging CTA right upper extremity with no evidence of hematoma or drainable fluid collection. Patent arterial system. No evidence of DVT Assessment: MSSA bacteremia Called microlab during last admission, [facility] blood cultures 05/25 NG. blood cultures were positive for Staph aureus 05/21 and 05/22 Documented at outside hospital, unknown date so far will follow-up with [facility]. 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 Discussed case with Dr. Neli Hutchinson during last admission She underwent CHANCE, with no visible valve vegetation. Repeat blood cultures 05/30 no growth She has AICD in place. There was a clot in MA[place]IK, probably an appendage clot, hence synchronized Cardioversion was canceled on last admission. Electrophysiology/Cardiology team was following and there was plan for Bi V ICD after completing antibiotic course. Nausea vomiting/syncope due to VF/fall Cardiology is following Dislodged catheter/lead.. PA Atrial fibrillation CHF GERD Hypertension Obstructive sleep apnea Thyroid disease Intellectual disability Plan: Continue on Ancef to complete therapy till 06/22, due to presence of AICD. Follow up on blood cultures from 05/30. Will obtain new blood cultures today, she has low-grade temperatures. Blood cultures were negative at outside hospital from 05/25, blood cultures negative at this facility from 05/30 CT abdomen and pelvis 06/01 With no significant infectious findings IR guided PICC line placement on 06/05. Right upper extremity, Dopplers with no DVT, CTA with no hematoma/fluid collection. CBC, CMP to be obtained weekly while on IV Ancef and labs to be faxed to [facility]. Will follow. Thanks for Consulting Infectious Diseases. Will follow. Eben Pettit MD 06/13/2024 [facility] Office: [phone] Fax: [phone] Voice recognition software was used to complete this document, therefore, hand spray operator variances may occur. * Ton Stanton OT - 06/13/2024 11:22 AM CDT Occupational Therapy NOTE / SESSION TYPE: Initial Evaluation Med cancel per RN, patient is combative and in soft wrist restraints. OT will continue to follow and complete evaluation when appropriate. Thank you. Ton Stanton OT 06/13/24 11:28 AM * Maria Luisa Thorpe, PT - 06/13/2024 10:30 AM CDT Physical Therapy Med hold this date, patient agitated and restrained at this time, will follow up next treatment date. * Lizzie Hong MD - 06/13/2024 10:22 AM CDT [facility] - Cardiology [facility] Progress Note Admit Date: 06/10/2024 11:41 PM @HDAYS@ PCP: Oswaldo Serrano MD Patient seen and examined Chart , telemtry reviewed Symptoms Patient denies chest pain, dyspnea, palpitations, sweating or syncope. Has been agitated and uncooperative. Sitter in room Data Vitals: 06/13/24 0727 06/13/24 0800 06/13/24 0900 06/13/24 0914 BP: 143/83 110/94 110/94 Pulse: 70 71 74 Resp: 18 23 Temp: 36.5 ??C (97.7 ??F) TempSrc: Axillary SpO2: 98% 99% Weight: Height: Intake/Output Summary (Last 24 hours) at 06/13/2024 1022 Last data filed at 06/13/2024 0913 Gross per 24 hour Intake 182.25 ml Output -- Net 182.25 ml Lab Results Component Value Date WBC 6.3 06/11/2024 WBC 6.0 06/11/2024 HGB 11.6 (L) 06/11/2024 HGB 11.5 (L) 06/11/2024 HCT 35.8 06/11/2024 HCT 35.8 06/11/2024 Lab Results Component Value Date SODIUM 140 06/13/2024 SODIUM 137 06/12/2024 SODIUM 141 06/11/2024 POTASSIUM 3.9 06/13/2024 POTASSIUM 3.8 06/12/2024 POTASSIUM 3.2 (L) 06/11/2024 CHLORIDE 104 06/13/2024 CHLORIDE 102 06/12/2024 CHLORIDE 102 06/11/2024 CO2 28 06/13/2024 CO2 28 06/12/2024 CO2 28 06/11/2024 CREATININE 0.64 06/13/2024 CREATININE 0.63 06/12/2024 CREATININE 0.63 06/11/2024 GLUCOSE 201 (H) 06/13/2024 GLUCOSE 149 06/13/2024 GLUCOSE 135 06/12/2024 GLUCOSE 195 06/12/2024 GLUCOSE 154 06/12/2024 GLUCOSE 100 06/11/2024 CALCIUM 9.2 06/13/2024 CALCIUM 8.6 06/12/2024 CALCIUM 9.0 06/11/2024 No results found for: PTT No results found for: PT No results found for: INR No results found for: BNP No components found for: TROPONIN No results found for: CHOL , TRIG , HDL , LDLCALC Lab Results Component Value Date ALBUMIN 3.2 (L) 06/13/2024 ALBUMIN 3.1 (L) 06/12/2024 No components found for: MAGMGDL No results found for: TSH No results found for: T3FREE No results found for: [id number] Pain Assessment: Epps-Lucia FACES Epps-Lucia FACES Pain Rating: No hurt Meds MEDICATIONS FOR CURRENT ENCOUNTER: SCHEDULED MEDICATIONS: Scheduled Medications Medication Dose Route Frequency carvediloL (COREG) tablet 25 mg 25 mg oral BID with meals (bkfst, dinner) ceFAZolin (ANCEF) 2,000 mg/100 mL in dextrose (premix) 2 g 2 g intravenous Q8H GALINA cholecalciferol (VITAMIN D-3) tablet 5,000 Units 5,000 Units oral Daily docusate sodium (COLACE) capsule 100 mg 100 mg oral BID escitalopram (LEXAPRO) tablet 5 mg 5 mg oral Daily ferrous sulfate delayed release tablet 65 mg of elemental iron 65 mg of elemental iron oral Daily with breakfast insulin glargine (LANTUS, SEMGLEE) 100 unit/mL injection 17 Units 0.15 Units/kg subcutaneous Nightly insulin lispro (HumaLOG, ADMELOG) 100 unit/mL injection 0-4 Units 0-4 Units subcutaneous Nightly insulin lispro (HumaLOG, ADMELOG) 100 unit/mL injection 0-5 Units 0-5 Units subcutaneous TID with meals insulin lispro (HumaLOG, ADMELOG) 100 unit/mL injection 6 Units 0.05 Units/kg subcutaneous TID withmeals levothyroxine (SYNTHROID) tablet 75 mcg 75 mcg oral QAM magnesium oxide (MAG-OX) tablet 400 mg 400 mg oral Daily midodrine (PROAMATINE) tablet 5 mg 5 mg oral TID AC multivit oufaqjdg-hwtm-GJ-calcium (THERA-M) tablet 1 tablet 1 tablet oral Daily nortriptyline (PAMELOR) capsule 10 mg 10 mg oral Daily pantoprazole DR (PROTONIX) extended release tablet 40 mg 40 mg oral Daily potassium chloride ER (KLOR-CON) extended release tablet 40 mEq 40 mEq oral Daily rivaroxaban (XARELTO) tablet 20 mg 20 mg oral Daily with dinner sacubitriL-valsartan (ENTRESTO) 24-26 mg tablet 1 tablet 1 tablet oral BID CONTINUOUS MEDICATIONS: Continuous Medications Medication Dose Last Rate dexmedeTOMIDine in 0.9% sodium chloride (PRECEDEX) 400 mcg/100 mL (4 mcg/mL) infusion (premix) 0-0.7 mcg/kg/hr 0.5 mcg/kg/hr (06/13/24 1015) PRN MEDICATIONS: PRN Medications Medication Dose Route Frequency Last Admin albuterol HFA (PROVENTIL HFA,VENTOLIN HFA,PROAIR HFA) 90 mcg/actuation inhaler 2 puff 2 puff inhalation Q6H PRN (RT) dextrose oral liquid liquid 15 g 15 g oral Q15 Min PRN Or dextrose (D10W) 10% bolus 250 mL 250 mL intravenous Q15 Min PRN fluticasone propionate (FLONASE) 50 mcg/actuation nasal spray 1 spray 1 spray each nostril Daily PRN glucagon injection 1 mg 1 mg intramuscular Q30 Min PRN haloperidol (HALDOL) injection 5 mg 5 mg intramuscular Q6H PRN 5 mg at 06/12/24 1836 HYDROcodone-acetaminophen (NORCO) 5-325 mg per tablet 1 tablet 1 tablet oral QID PRN 1 tablet at 06/12/24 0659 Allergies Allergen Reactions Sulfa (Sulfonamide Antibiotics) Review of Systems: All systems were reviewed. Pertinent positives are mentioned above. Exam General appearance: alert, no distress Neck: No JVD. No carotid Bruit Chest: Adequate air entry bilaterally,few basal crepts Cardiovascular: regular rate, rhythm, normal S1 and S2, without rub, gallops PSM 2/6 Abdomen: soft without mass, non-tender, with normal bowel sounds Extremities: no clubbing, cyanosis or edema. Assessment /Plan Episode of syncope -secondary to VF a -no further arrhythmias on telemetry -troponins are normal -CT head unremarkable -chest x-ray cardiomegaly -tikosyn discontinue with concerns for QTC prolongation Occasional PVCs present on telemetry V-fib. -5 episodes of VFib with appropriate ICD firing. -K 3.2 on admission and today it is 3.8 - magnesium 2.0 - previous [facility] that was negative for CAD. Given normal troponin no need for IP cath. Questionable endocarditis. -no vegetations seen on CHANCE last admission. - to continue antibiotics as per Infectious Disease until 06-09-24 Persistent Atrial fibrillation. - CHANCE 05/31/24 that showed left atrial appendage clot therefore no CV - placed on tikosyn 500 mcg BID with plans to CV at later date. -On xarelto for AC. -Check TSH and replete lytes. -Tikosyn and calcium channel blockers been discontinued. Dislodged catheter. in pulmonary artery noted on CT chest and CHANCE last admission. Chronic systolic congestive heart failure. -Clinically compensated at this time. -EF 30% by echo last admit. Continue BB and Entresto. -is euvolemic not requiring diuretics As blood pressure is adequate will stop midodrine Diabetes type 2 -per hospitalist Hypothyroid -treated Lizzie Hong MD * Mell Curran MD - 06/13/2024 8:24 AM CDT DAILY PROGRESS NOTE C/C:Fall and passed out Interval History: Started on Precedex drip last night for agitation. Still on drip Consults: Ty Mcfarland MD Singh, Inderjit, MD SUBJECTIVE: Complaints: Unable to obtain. But denies any pain or SOB ROS: OBJECTIVE: Vitals: Temp (24hrs), Av ??C (98.6 ??F), Min:36.5 ??C (97.7 ??F), Max:37.8 ??C (100 ??F) Vitals: 06/13/24 0615 06/13/24 0630 06/13/24 0645 06/13/24726 BP: 137/78 132/76 128/79 Pulse: 70 70 71 Resp: 17 18 Temp: 36.5 ??C (97.7 ??F) TempSrc: Axillary SpO2: 98% 94% 96% Weight: Height: LDA: PICC Double Lumen 06/05/24 Non-tunneled Power #1 Red, #2 Purple, Right Basilic;Upper arm (Active) Placement Date/Time: 06/05/24 1505 Catheter Time Out Checklist Completed: Yes Hand Hygiene Performed: Yes Site Prep: Chlorhexidine Site Prep Agent has Completely Dried Before Insertion: Yes All 5 Sterile Barriers or Appropriate Barriers Used (Gl... Number of days: 7 I/O: Intake/Output Summary (Last 24 hours) at 06/13/2024823 Last data filed at 06/13/2024 0300 Gross per 24 hour Intake 82.25 ml Output -- Net 82.25 ml Physical Exam General: Lying in bed,sleeping,arousable,on RA, NAD SHEENT:Skin warm,dry,no rashes. No icterus,no cyanosis,no pallor,EOMI. Neck:Supple Respi:Slightly diminished breath sounds tamica Cardio:RRR,no murmur GI:Abdomen obese,soft,bowel sounds +,non tender,not distended. Extre:No edema,no cyanosis,no pallor Neuro:Sleeping, arousable , following commands, answering yes or no questions, moving all extremities Psych:No agitation. Laboratory: Recent Results (from the past 24 hour(s)) POCT glucose Collection Time: 06/12/24 12:02 PM Result Value Ref Range Glucose, POC 200 (H) 70 - 199 mg/dL POCT glucose Collection Time: 06/12/24 5:10 PM Result Value Ref Range Glucose, POC 195 70 - 199 mg/dL POCT glucose Collection Time: 06/12/24 8:07 PM Result Value Ref Range Glucose, POC 135 70 - 199 mg/dL Magnesium Collection Time: 06/13/24 2:59 AM Result Value Ref Range Magnesium 2.0 1.4 - 2.5 mg/dL Renal function panel Collection Time: 06/13/24 2:59 AM Result Value Ref Range Sodium 140 135 - 145 mmol/L Potassium, pl 3.9 3.3 - 4.9 mmol/L Chloride 104 97 - 110 mmol/L CO2 28 22 - 32 mmol/L Anion gap 8 2 - 15 mmol/L BUN 11 6 - 25 mg/dL Creatinine 0.64 0.60 - 1.10 mg/dL Glucose 149 70 - 199 mg/dL Calcium 9.2 8.5 - 10.3 mg/dL Phosphorus, pl 3.6 2.3 - 4.5 mg/dL Albumin 3.2 (L) 3.5 - 5.0 g/dL eGFR Collection Time: 06/13/24 2:59 AM Result Value Ref Range eGFR >90 >=60 mL/min/1.73 m2 POCT glucose Collection Time: 06/13/24 7:30 AM Result Value Ref Range Glucose, POC 201 (H) 70 - 199 mg/dL Radiology: Scheduled Medications: carvediloL, 25 mg, oral, BID with meals (bkfst, dinner) ceFAZolin, 2 g, intravenous, Q8H GALINA cholecalciferol, 5,000 Units, oral, Daily docusate sodium, 100 mg, oral, BID escitalopram, 5 mg, oral, Daily ferrous sulfate, 65 mg of elemental iron, oral, Daily with breakfast insulin glargine, 0.15 Units/kg, subcutaneous, Nightly insulin lispro, 0-4 Units, subcutaneous, Nightly insulin lispro, 0-5 Units, subcutaneous, TID with meals insulin lispro, 0.05 Units/kg, subcutaneous, TID with meals levothyroxine, 75 mcg, oral, QAM magnesium oxide, 400 mg, oral, Daily midodrine, 5 mg, oral, TID AC multivit rdwvgtjf-nbor-QM-calcium, 1 tablet, oral, Daily nortriptyline, 10 mg, oral, Daily pantoprazole DR, 40 mg, oral, Daily potassium chloride ER, 40 mEq, oral, Daily rivaroxaban, 20 mg, oral, Daily with dinner sacubitriL-valsartan, 1 tablet, oral, BID Current Facility-Administered Medications: albuterol HFA (PROVENTIL HFA,VENTOLIN HFA,PROAIR HFA) 90 mcg/actuation inhaler 2 puff, 2 puff, inhalation, Q6H PRN (RT), Dilan Palmer MD carvediloL (COREG) tablet 25 mg, 25 mg, oral, BID with meals (bkfst, dinner), Rachel Barnes NP, 25 mg at 06/11/24 1741 ceFAZolin (ANCEF) 2,000 mg/100 mL in dextrose (premix) 2 g, 2 g, intravenous, Q8H GALINA, Rachel Barnes NP, Last Rate: 200 mL/hr at 06/12/24 2325, 2 g at 06/12/24 2325 cholecalciferol (VITAMIN D-3) tablet 5,000 Units, 5,000 Units, oral, Daily, Rachel Barnes NP, 5,000 Units at 06/12/24 0849 dexmedeTOMIDine in 0.9% sodium chloride (PRECEDEX) 400 mcg/100 mL (4 mcg/mL) infusion (premix), 0-0.7 mcg/kg/hr, intravenous, Titrated, Coleen Samuels MD, Last Rate: 14.39 mL/hr at 06/13/24 0545, 0.5 mcg/kg/hr at 06/13/24 0545 dextrose oral liquid liquid 15 g, 15 g, oral, Q15 Min PRN OR dextrose (D10W) 10% bolus 250 mL, 250 mL, intravenous, Q15 Min PRN, Rachel Barnes NP docusate sodium (COLACE) capsule 100 mg, 100 mg, oral, BID, Rachel Barnes NP, 100 mg at 06/12/24 0848 escitalopram (LEXAPRO) tablet 5 mg, 5 mg, oral, Daily, Coleen Samuels MD, 5 mg at 06/12/24 0848 ferrous sulfate delayed release tablet 65 mg of elemental iron, 65 mg of elemental iron, oral, Daily with breakfast, Rachel Barnes NP, 65 mg of elemental iron at 06/12/24 0848 fluticasone propionate (FLONASE) 50 mcg/actuation nasal spray 1 spray, 1 spray, each nostril, DailyPRN, Rachel Barnes NP glucagon injection 1 mg, 1 mg, intramuscular, Q30 Min PRN, Rachel Barnes NP haloperidol (HALDOL) injection 5 mg, 5 mg, intramuscular, Q6H PRN, Coleen Samuels MD, 5 mg at 06/12/24 1836 HYDROcodone-acetaminophen (NORCO) 5-325 mg per tablet 1 tablet, 1 tablet, oral, QID PRN, SitaerDilan MD, 1 tablet at 06/12/24 0659 insulin glargine (LANTUS, SEMGLEE) 100 unit/mL injection 17 Units, 0.15 Units/kg, subcutaneous, Nightly, Rachel Barnes NP, 17 Units at 06/12/242013 insulin lispro (HumaLOG, ADMELOG) 100 unit/mL injection 0-4 Units, 0-4 Units, subcutaneous, Nightly, Rachel Barnes NP insulin lispro (HumaLOG, ADMELOG) 100 unit/mL injection 0-5 Units, 0-5 Units, subcutaneous, TID with meals, Rachel Barnes NP, 1 Units at 06/12/24 1728 insulin lispro (HumaLOG, ADMELOG) 100 unit/mL injection 6 Units, 0.05 Units/kg, subcutaneous, TID with meals, Rachel Barnes NP, 6 Units at 06/12/24 1727 levothyroxine (SYNTHROID) tablet 75 mcg, 75 mcg, oral, QAM, Rachel Barnes, ALLY, 75 mcg at 06/12/24 0635 magnesium oxide (MAG-OX) tablet 400 mg, 400 mg, oral, Daily, Seth Flores MD midodrine (PROAMATINE) tablet 5 mg, 5 mg, oral, TID AC, Rachel Barnes NP, 5 mg at 06/12/24 1727 multivit lokxqqud-vsnl-FG-calcium (THERA-M) tablet 1 tablet, 1 tablet, oral, Daily, Rachel Barnes NP, 1 tablet at 06/12/24 0848 nortriptyline (PAMELOR) capsule 10 mg, 10 mg, oral, Daily, Rachel Barnes NP, 10 mg at 06/12/[address] (PROTONIX) extended release tablet 40 mg, 40 mg, oral, Daily, Rachel Barnes NP, 40 mg at 06/12/24 0848 potassium chloride ER (KLOR-CON) extended release tablet 40 mEq, 40 mEq, oral, Daily, Coleen Samuels MD, 40 mEq at 06/12/24 0848 rivaroxaban (XARELTO) tablet 20 mg, 20 mg, oral, Daily with dinner, Rachel Barnes NP, 20 mgat 06/12/24 1727 sacubitriL-valsartan (ENTRESTO) 24-26 mg tablet 1 tablet, 1 tablet, oral, BID, Rachel Barnes NP, 1 tablet at 06/12/24 0848 Continuous Medications: dexmedeTOMIDine, 0-0.7 mcg/kg/hr, Last Rate: 0.5 mcg/kg/hr (06/13/24 0545) PRN Medications: albuterol HFA dextrose OR dextrose fluticasone propionate glucagon haloperidol HYDROcodone-acetaminophen Hospital course: 63 y.o. Morbidly obese [place] pt with a PMHx significant for A-fib, CHF, DM II, GERD, HTN, Intellectualdisability, OAB, Sleep apnea, thyroid disease and endocarditis Was brought to ED with chief complaint of fall and passed out ASSESSMENT/PLAN: All diagnoses were present on admission unless otherwise stated. Principal Problem: --Syncope due to Ventricular tachycardia- AICD interrogated at [facility] by [facility], noted 5 discharges on the report. Troponins trended 0.018, 0.030 ( 0.000-0.034) Patient currently in Sinus rhythm on Telemetry. Cardiology has seen and has stopped several medications including Tikosyn. Decreased Lexapro to 5 mg a day Active problems: --DM II- Accu check ACHS cover with SSI, continue Lantus and basal meal time Humalog BS 140-250 --Chronic Reduced ejection fraction heart failure- cardiomegaly noted on chest x-ray, OSH BNP 1600 (19.9-100) no noted edema continue Lasix 40 mg daily, Coreg 25 mg BID and Entresto 24/26 BID, last Echo 05/30/24 EF 30% diastolic dysfunction. --Recent H/O Endocarditis- Continue Ancef 2g every 8 hours for 9 more days --Hypothyroidism- Continue Levothyroxine 75 mcg daily --Urinary frequency-Continue Mirabeqron 25 mg daily --Hypotension- continue midodrine 5 mg TID. Now resolved --GERD-Continue Protonix 40 mg daily --A-fib- Cardizem has been discontinued . Cardiology is following Continue Xarelto 20 mg daily with dinner --CKD stage II- Stable. consulted Nephrology --Depression- Decreased Lexapro dose to 5 mg Continue nortriptyline 10 mg daily --Agitation 06/12: On Precedex drip. H/O Intellectual disability, developmental delay+. Will consult Psych Will wean her off drip DVT Prophylaxis with Xarelto Code status: Full code D/W RN Medical Decision Making complexity: Moderate Expected date of discharge: 06/14 Barriers to discharge:Ambulation, rehabilitation Discharge disposition: nursing home facility versus home Mell Curran MD 06/13/2024 8:24 AM [facility] [place] * Seth Flores MD - 06/12/2024 10:31 AM CDT Nephrology Progress Note [facility] SUBJECTIVE Overall stable. All labs and data reviewed. Bp soft, confused. 2 plus blood in urine. OBJECTIVE Vitals: Vitals: 06/12/24 2100 06/12/24 2127 06/12/24 2145 06/12/24 2200 BP: 103/89 118/87 104/76 Pulse: 111 110 97 96 Resp: 19 Temp: TempSrc: SpO2: 94% 92% 97% 96% Weight: Height: Intake/Output Summary (Last 24 hours) at 06/12/2024 2231 Last data filed at 06/12/2024 0355 Gross per 24 hour Intake 400 ml Output 0 ml Net 400 ml REVIEW OF SYSTEMS Review of Systems Constitutional: Negative. HENT: Negative. Eyes: Negative. Respiratory: Negative. Cardiovascular: Negative. Gastrointestinal: Negative. Genitourinary: Negative. Musculoskeletal: Negative. Skin: Negative. Allergic/Immunologic: Negative. Hematological: Negative. All other systems reviewed and are negative. PHYSICAL EXAM Physical Exam Constitutional: Appears well-developed. HENT: wnl Head: Normocephalic. Eyes: Pupils are equal, round, and reactive to light. Neck: Normal range of motion. Neck supple. Cardiovascular: Normal rate. Pulmonary/Chest: Effort normal and breath sounds normal. Abdominal: Soft. Musculoskeletal: Normal range of motion. Neurological: Alert, oriented. Skin: Skin is warm. Nursing note and vitals reviewed. MEDICATIONS Current Facility-Administered Medications: albuterol HFA (PROVENTIL HFA,VENTOLIN HFA,PROAIR HFA) 90 mcg/actuation inhaler 2 puff, 2 puff, inhalation, Q6H PRN (RT), Brother, Dilan Rodriguez MD carvediloL (COREG) tablet 25 mg, 25 mg, oral, BID with meals (bkfst, dinner), Rachel Barnes NP, 25 mg at 06/11/24 1741 ceFAZolin (ANCEF) 2,000 mg/100 mL in dextrose (premix) 2 g, 2 g, intravenous, Q8H GALINA, Rachel Barnes NP, Last Rate: 200 mL/hr at 06/12/24 1726, 2 g at 06/12/24 1726 cholecalciferol (VITAMIN D-3) tablet 5,000 Units, 5,000 Units, oral, Daily, Rachel Barnes NP, 5,000 Units at 06/12/24 0849 dexmedeTOMIDine in 0.9% sodium chloride (PRECEDEX) 400 mcg/100 mL (4 mcg/mL) infusion (premix), 0-0.7 mcg/kg/hr, intravenous, Titrated, Coleen Samuels MD, Last Rate: 11.51 mL/hr at 06/12/242126, 0.4 mcg/kg/hr at 06/12/247 dextrose oral liquid liquid 15 g, 15 g, oral, Q15 Min PRN OR dextrose (D10W) 10% bolus 250 mL, 250 mL, intravenous, Q15 Min PRN, Rachel Barnes NP docusate sodium (COLACE) capsule 100 mg, 100 mg, oral, BID, Rachel Barnes NP, 100 mg at 06/12/24 0848 escitalopram (LEXAPRO) tablet 5 mg, 5 mg, oral, Daily, Coleen Samuels MD, 5 mg at 06/12/24 0848 ferrous sulfate delayed release tablet 65 mg of elemental iron, 65 mg of elemental iron, oral, Daily with breakfast, Rachel Barnes NP, 65 mg of elemental iron at 06/12/24 0848 fluticasone propionate (FLONASE) 50 mcg/actuation nasal spray 1 spray, 1 spray, each nostril, DailyPRN, Rachel Barnes NP glucagon injection 1 mg, 1 mg, intramuscular, Q30 Min PRN, Rachel Barnes NP haloperidol (HALDOL) injection 5 mg, 5 mg, intramuscular, Q6H PRN, Coleen Samuels MD, 5 mg at 06/12/24 1836 HYDROcodone-acetaminophen (NORCO) 5-325 mg per tablet 1 tablet, 1 tablet, oral, QID PRN, Dilan Palmer MD, 1 tablet at 06/12/24 0659 insulin glargine (LANTUS, SEMGLEE) 100 unit/mL injection 17 Units, 0.15 Units/kg, subcutaneous, Nightly, Rachel Barnes NP, 17 Units at 06/12/242013 insulin lispro (HumaLOG, ADMELOG) 100 unit/mL injection 0-4 Units, 0-4 Units, subcutaneous, Nightly, Rachel Barnes NP insulin lispro (HumaLOG, ADMELOG) 100 unit/mL injection 0-5 Units, 0-5 Units, subcutaneous, TID with meals, Rachel Barnes NP, 1 Units at 06/12/24 1728 insulin lispro (HumaLOG, ADMELOG) 100 unit/mL injection 6 Units, 0.05 Units/kg, subcutaneous, TID with meals, Rachel Barnes NP, 6 Units at 06/12/24 1727 levothyroxine (SYNTHROID) tablet 75 mcg, 75 mcg, oral, QAM, Rachel Barnes NP, 75 mcg at 06/12/24 0635 midodrine (PROAMATINE) tablet 5 mg, 5 mg, oral, TID AC, Rachel Barnes PAN DEVULCANIZER, 5 mg at 06/12/24 1727 multivit vxoszyxl-hmxh-KZ-calcium (THERA-M) tablet 1 tablet, 1 tablet, oral, Daily, Rachel Barnes, PAN DEVULCANIZER, 1 tablet at 06/12/24 0848 nortriptyline (PAMELOR) capsule 10 mg, 10 mg, oral, Daily, Rachel Barnes, PAN DEVULCANIZER, 10 mg at 06/12/[address] (PROTONIX) extended release tablet 40 mg, 40 mg, oral, Daily, Rachel Barnes,PAN DEVULCANIZER, 40 mg at 06/12/24 0848 potassium chloride ER (KLOR-CON) extended release tablet 40 mEq, 40 mEq, oral, Daily, Coleen Samuels MD, 40 mEq at 06/12/24 0848 rivaroxaban (XARELTO) tablet 20 mg, 20 mg, oral, Daily with dinner, Rachel Barnes NP, 20 mgat 06/12/24 1727 sacubitriL-valsartan (ENTRESTO) 24-26 mg tablet 1 tablet, 1 tablet, oral, BID, Rachel Barnes NP, 1 tablet at 06/12/24 0848 Lab/Radiology/Diagnostic Review: Recent Results (from the past 24 hour(s)) Magnesium Collection Time: 06/12/24 3:44 AM Result Value Ref Range Magnesium 2.0 1.4 - 2.5 mg/dL Renal function panel Collection Time: 06/12/24 3:44 AM Result Value Ref Range Sodium 137 135 - 145 mmol/L Potassium, pl 3.8 3.3 - 4.9 mmol/L Chloride 102 97 - 110 mmol/L CO2 28 22 - 32 mmol/L Anion gap 7 2 - 15 mmol/L BUN 15 6 - 25 mg/dL Creatinine 0.63 0.60 - 1.10 mg/dL Glucose 154 70 - 199 mg/dL Calcium 8.6 8.5 - 10.3 mg/dL Phosphorus, pl 3.3 2.3 - 4.5 mg/dL Albumin 3.1 (L) 3.5 - 5.0 g/dL eGFR Collection Time: 06/12/24 3:44 AM Result Value Ref Range eGFR >90 >=60 mL/min/1.73 m2 Protein / creatinine ratio, urine, random Collection Time: 06/12/24 6:46 AM Result Value Ref Range Protein, ur, quant 15.6 mg/dL Creatinine Ur 124.9 mg/dL Protein/creatinine ratio 124.9 0.0 - 180.0 mg/g CR Urinalysis reflex to microscopic and culture Urine Collection Time: 06/12/24 6:46 AM Specimen: Urine Result Value Ref Range Color, ur Yellow Yellow Clarity, ur Clear Clear Specific gravity, ur 1.026 1.003 - 1.030 pH, urine 5.0 Protein, ur ql Negative Negative Glucose, ur ql 3+ (A) Negative Ketones, ur Negative Negative Bilirubin, ur Negative Negative Blood, ur 2+ (A) Negative Urobilinogen, ur <2.0 <2.0 mg/dL Nitrite, ur Negative Negative Leukocyte esterase, ur Negative Negative UA reflex comment Reflex to microscopic UA will be performed. Sodium, urine, random Collection Time: 06/12/24 6:46 AM Result Value Ref Range Sodium, ur 105 mmol/L Potassium, urine, random Collection Time: 06/12/24 6:46 AM Result Value Ref Range Potassium conc, ur 43.4 mmol/L Chloride, urine, random Collection Time: 06/12/24 6:46 AM Result Value Ref Range Chloride, ur 78 mmol/L Urinalysis, microscopic only Collection Time: 06/12/24 6:46 AM Result Value Ref Range WBC, ur 0-5 0 - 5 /HPF RBC, ur 11-20 (A) 0 - 2 /HPF Epithelial cells, squamous, ur 1-5 0 - 5 /HPF Culture Reflex Comment Reflex conditions for urine culture (WBC >10) not met. POCT glucose Collection Time: 06/12/24 7:36 AM Result Value Ref Range Glucose, POC 145 70 - 199 mg/dL POCT glucose Collection Time: 06/12/24 12:02 PM Result Value Ref Range Glucose, POC 200 (H) 70 - 199 mg/dL POCT glucose Collection Time: 06/12/24 5:10 PM Result Value Ref Range Glucose, POC 195 70 - 199 mg/dL POCT glucose Collection Time: 06/12/24 8:07 PM Result Value Ref Range Glucose, POC 135 70 - 199 mg/dL Recent Labs Lab Units 06/12/24 0646 CLARITY U Clear COLOR U Yellow KETONES UR Negative NITRITE UR Negative SPEC GRAV U 1.026 UROBILINOGEN UR mg/dL <2.0 WBC UR QT /HPF 0-5 CTA Upper Extremity Right W WO Contrast Result Date: 06/07/2024 Narrative: EXAMINATION: CTA UPPER EXTREMITY RIGHT W WO CONTRAST HISTORY: Right upper arm swelling ORDER DATE: 06/06/2024 10:40 PM TECHNIQUE: Imaging protocol: Computed tomographic angiography of the right upper extremity with contrast, including non-contrast images if performed. 3D rendering (Not supervised by radiologist): MIP and/or 3D reconstructed images were created by the technologist. Contrast material: OPTIRAY 350; Contrast volume: 119 ml IV COMPARISON: CT CHEST PE (CTA) W CONTRAST 05/30/2024 FINDINGS: Tubes, catheters and devices: There is a PICC line inserted through the right basilicvein at the level of the distal arm. There is mild fat stranding within the anterior distal arm, without sizable hematoma or drainable fluid collection. No evidence of active extravasation. Pulmonaryarteries: There is a partially visualized curvilinear metallic structure within the right pulmonaryartery, similar to prior. Right subclavian artery: No acute findings. No occlusion or significant stenosis. Axillary artery: No acute findings. No occlusion or significant stenosis. Brachial artery: No acute findings. No occlusion or significant stenosis. Radial artery: No acute findings. No occlusion or significant stenosis. Ulnar artery: No acute findings. No occlusion or significant stenosis. Veins: Peripheral intravenous access is seen within the cephalic vein at the level of the antecubital fossa. Impression: 1. Patent arterial system of the right upper extremity as detailed above. 2. No evidence of hematoma or drainable fluid collection Stat report by [facility] Electronically signed by: Andrea Abernathy M.D. ECG 12 lead Result Date: 06/06/2024 Narrative: Vent Rate: 78 bpm RR Interval: 763 msec [place] Interval: 0 msec QRS Duration: 154 msec QT Interval: 473 msec QTC Interval: 506 msec P-R-T [place]: 0 - 23 - 94 degrees IMPRESSION: ATRIAL FIBRILLATION Occasional ventricular pacing INDETERMINATE AXIS Left bundle branch block ABNORMAL ECG Electronically Signed By: Dr. Shiloh Muhammad [facility] US Vein Duplex Upper Extremity Right Limited, Unilateral Result Date: 06/06/2024 Narrative: EXAMINATION: US VEIN DUPLEX UPPER EXTREMITY RIGHT LIMITED, UNILATERAL HISTORY: The patient is a 63-year-old female who presents with swelling in the right upper extremity. TECHNIQUE: Rightupper extremity venous duplex study was performed with hahn scale imaging, color Doppler imaging and spectral waveform analysis. FINDINGS: There is normal compressibility and phasicity in both internal jugular and subclavian veins as well as the right axillary, brachial, radial, ulnar, cephalic andbasilic veins. Imaging of these veins reveals no thrombus within the lumen. Impression: There is no evidence of acute DVT in the right upper extremity. Electronically signed by: Conrad Davila M.D. XR Chest Pa Lateral 2 Views Result Date: 06/06/2024 Narrative: EXAMINATION: XR CHEST PA LATERAL 2 VIEWS HISTORY: The patient is a 63-year-old female who has had placement of a PICC line. Comparison made with the previous study dated 12/26/2020. TECHNIQUE: AP and lateral view of the chest. FINDINGS: The distal tip of the right PICC line is in the distal superior vena cava. Cardiomegaly with aortic atherosclerosis. No failure. No active infiltrate. Impression: No failure. Electronically signed by: Conrad Davila M.D. IR PICC Line Placement Over 5 Years of Age Result Date: 06/05/2024 Narrative: EXAMINATION: IR PICC LINE PLACEMENT OVER 5 YEARS OF AGE DATE: 06/05/2024 2:05 PM HISTORY:sepsis Unsuccessful attempt at bedside PICC line placement by in-house vascular team. TECHNIQUE: The risks, benefits, and alternatives were discussed and informed consent was obtained. Prior to beginn ing the procedure, universal protocol was performed to confirm the patient's identity and the planned procedure. Maximum sterile barriers including cap, mask, hand hygiene, sterile gloves, sterile gown, large sterile drape, sterile gel, sterile ultrasound probe cover, and 2% chlorhexidine for cutaneous antisepsis were used. The skin over the right basilic vein was sterilely prepped, draped, and infiltrated with lidocaine. Prior to the procedure, this target vessel was evaluated by ultrasound and an image of the patent vessel demonstrating vessel patency was recorded in the patient's electronic medical record. This vessel was then accessed using real-time ultrasound guidance. A guidewire waspassed centrally using fluoroscopic guidance. The intravascular length from the access site to the right atrium was assessed. After dilating the tract, a 45 cm, 5-[place] dual-lumen PICC was inserted through the peel-away sheath. The peel-away sheath was then removed. The catheter was flushed and sec ured in place. A sterile dressing was applied. The final fluoroscopic image demonstrates the catheter with its tip at the cavoatrial junction. No complications were identified. The catheter is ready for immediate use. When treatment is completed, this catheter can be removed at the bedside according to standard hospital protocol. Impression: Successful PICC placement using ultrasound guidance. Electronically signed by: Blaine Nash M.D. XR Chest 1 View Result Date: 06/05/2024 Narrative: EXAMINATION: XR CHEST 1 VIEW HISTORY: The patient is a 63-year-old female who has had anattempted PICC line placement. Comparison made with the previous study dated 05/29/2024. TECHNIQUE:AP portable view of the chest. FINDINGS: Cardiomegaly with aortic atherosclerosis. No failure. No active infiltrate. Impression: Cardiomegaly. Electronically signed by: Conrad Davila M.D. ECG 12 lead Result Date: 06/02/2024 Narrative: Vent Rate: 86 bpm RR Interval: 697 msec OH Interval: 0 msec QRS Duration: 157 msec QT Interval: 470 msec QTC Interval: 513 msec P-R-T [place]: 0 - 38 - 88 degrees IMPRESSION: ATRIAL FIBRILLATION WITH ABERRANT CONDUCTION OR VENTRICULAR PREMATURE COMPLEXES LEFT BUNDLE BRANCH BLOCK [120+ ms QRS DURATION, 80+ ms Q/S IN V1/V2, 85+ ms R IN I/aVL/V5/V6] ABNORMAL ECG Compared to prior EKG, ventricular pacing is no longer present Electronically Signed By: Antonio Carlos MD ECG 12 lead Result Date: 06/02/2024 Narrative: Vent Rate: 76 bpm RR Interval: 782 msec OH Interval: 0 msec QRS Duration: 158 msec QT Interval: 494 msec QTC Interval: 525 msec P-R-T [place]: 0 - 116 - 120 degrees IMPRESSION: ATRIAL FIBRILLATION WITH demand ventricular pacemaker MARKED RIGHT AXIS DEVIATION [QRS AXIS > 100] INTRAVENTRICULAR CONDUCTION DELAY [130+ ms QRS DURATION] ABNORMAL ECG Compared to prior EKG, demand ventricular pacing is new Electronically Signed By: Antonio Carlos MD CT Abdomen Pelvis W Contrast Result Date: 06/01/2024 Narrative: EXAMINATION: CT ABDOMEN PELVIS W CONTRAST DATE: 06/01/2024 1:05 PM HISTORY: Sepsis. COMPARISON: 02/28/2017. TECHNIQUE: Transaxial computed tomographic images of the abdomen and pelvis were obtained after the administration of 119 mL of Optiray 350 intravenously. Multiplanar coronal and sagittal images were reformatted. FINDINGS: Similar scarring in the left lung base unchanged since 2017. There is cardiomegaly and mosaic attenuation in the lung bases suggestive of pulmonary edema. There is a small hiatal hernia. Cholecystectomy. Diffuse hepatic steatosis. The spleen, pancreas, and adrenal glands are unremarkable. Kidneys are unremarkable. No hydroureteronephrosis. Unopacified bladder is unremarkable. Uterus and adnexal structures are unremarkable. No free fluid in the pelvis. There is diverticulosis. No evidence of diverticulitis. The small bowel is unremarkable. Mild atherosclerotic calcifications in the aorta and branch vessels. Subcutaneous tissues are unremarkable. No pathologic by size criteria lymphadenopathy. Mild bilateral sacroiliac joint arthrosis. No acute fracture. No pathologic by size criteria lymphadenopathy. Impression: 1. Mosaic attenuation in the lung bases suggestive of interstitial pulmonary edema. 2. Diffuse hepatic steatosis. 3. Small hiatal hernia. 4. Trace left pleural effusion. 5. Additional chronic or incidental findings as above. Electronically signed by: Azeem Robins II, D.OYoanna ECG 12 lead Result Date: 06/01/2024 Narrative: Vent Rate: 102 bpm RR Interval: 584 msec OH Interval: 0 msec QRS Duration: 149 msec QT Interval: 387 msec QTC Interval: 446 msec P-R-T [place]: 0 - 115 - 66 degrees IMPRESSION: ATRIAL FIBRILLATION WITH RAPID VENTRICULAR RESPONSE WITH ABERRANT CONDUCTION OR VENTRICULAR PREMATURE COMPLEXES INDETERMINATE AXIS INTRAVENTRICULAR CONDUCTION DELAY [130+ ms QRS DURATION] ABNORMAL ECG NO CHANGE FROM PREVIOUS TRACING NOTED Electronically Signed By: Antonio Carlos MD ECG 12 lead Result Date: 06/01/2024 Narrative: Vent Rate: 83 bpm RR Interval: 716 msec OH Interval: 0 msec QRS Duration: 154 msec QT Interval: 409 msec QTC Interval: 449 msec P-R-T [place]: 0 - 123 - 189 degrees IMPRESSION: ATRIAL FIBRILLATION INTRAVENTRICULAR CONDUCTION DELAY LATERAL MYOCARDIAL INFARCTION , OF INDETERMINATE AGE Electronically Signed By: Cristino Kingsley MD, [facility] ECG 12 lead Result Date: 05/31/2024 Narrative: Vent Rate: 74 bpm RR Interval: 810 msec OH Interval: 0 msec QRS Duration: 151 msec QT Interval: 449 msec QTC Interval: 476 msec P-R-T [place]: 0 - 102 - 146 degrees IMPRESSION: VENTRICULAR PACED RHYTHM Electronically Signed By: Cristino Kingsley MD, [facility] ECG 12 lead Result Date: 05/31/2024 Narrative: Vent Rate: 76 bpm RR Interval: 785 msec OH Interval: 0 msec QRS Duration: 150 msec QT Interval: 471 msec QTC Interval: 501 msec P-R-T [place]: 0 - 80 - 97 degrees IMPRESSION: ATRIAL FIBRILLATION WITH ABERRANT CONDUCTION OR VENTRICULAR PREMATURE COMPLEXES INTRAVENTRICULAR CONDUCTION DELAY [130+ ms QRS DURATION] ABNORMAL ECG Electronically Signed By: Dr. Shiloh Muhammad [facility] ECG 12 lead Result Date: 05/30/2024 Narrative: Vent Rate: 109 bpm RR Interval: 548 msec OH Interval: 0 msec QRS Duration: 149 msec QT Interval: 398 msec QTC Interval: 462 msec P-R-T [place]: 0 - 96 - 89 degrees IMPRESSION: ATRIAL FIBRILLATION WITH RAPID VENTRICULAR RESPONSE BORDERLINE RIGHT AXIS DEVIATION [QRS AXIS > 90] INTRAVENTRICULAR CONDUCTION DELAY [130+ ms QRS DURATION] ABNORMAL ECG Unchanged compared to an EKG done earlier on May 30, 2024 Electronically Signed By: Dr. Shiloh Muhammad [facility] CT Chest WO Contrast Result Date: 05/30/2024 Narrative: EXAMINATION: Computed tomography of the chest without intravenous contrast HISTORY: Right lower lobe pulmonary artery for and body TECHNIQUE: Transaxial computed tomographic images of the chest were obtained without intravenous contrast according to the standard protocol. COMPARISON: 05/30/[address] angiography. FINDINGS: Bilateral small pleural effusions and atelectasis. There is trace pulmonary edema. Heart is enlarged. Small volume pericardial effusion. Pacemaker defibrillator leads terminate in the right atrium and right ventricle. There left hilar calcified granulomas. There is a curvilinear density originating in the right lower lobe pulmonary artery and extending distally into a lateral basilar subsegmental branch vessel. Visualized portions of the upper abdomen demonstrate changes of cholecystectomy. No suspicious osseous lesions. Impression: 1. Redemonstrated curvilinear radiopaque density extending from the proximal right lower lobe pulmonary artery into a subsegmental lateral basilar branch favors a catheter or wire fragment. 2. Findings most suggestive of heart failure with cardiomegaly, small volume pericardial effusion, and small bilateral pleural effusions and mild pulmonary edema. Electronically signed by: Abilio Post M.D. Transthoracic Echo (TTE) Complete W Doppler/CF Result Date: 05/30/2024 Narrative: [place] [address] Echocardiogram Report Patient Name: LEI RODRIGUEZ V : 1960 Study Date: 05/30/2024 7:47:08 AM Gender: F Tech: Location: [id number] Ref Provider: TY MCFARLAND Height(Cm): 165 BSA: 2.43 Weight(Kg): 128.7 Heart Rate: 94 BP: 135/84 Quality:Good Order Provider: TY MCFARLAND PROCEDURES: Echocardiographic Report: Transthoracic echocardiogram with complete [...] ] m/s LA Volume Index 22.99 [ 16.00- 34.00 ] cc/m2 MV A Peak Chadd [...] fraction is measured at 30 %. Left Atrium:The left atrium is normal in size. Right [...] peak RVSP is 42 mmHg. Mild to mo derate tricuspid regurgitation. Pericardium: Trivial pericardial effusion. Aorta: [...] wall thickness. Paradoxical septal motion consistent with IVCDor bundle branch block. Ejection fraction is measured at 30 %. Normal right ventricular systolic fun ction. Pacemaker noted. Normal structure of the mitral valve. Mild to moderate mitral valve regurgitation. The regurgitation jet is eccentrically directed which may underestimate the severity of mitral regurgitation. Tricuspid valve not well visualized. Estimated peak RVSP is 42 mmHg. Mild to moderate tricuspid regurgitation. Trivial pericardial effusion. Electronically Signed By: Coleen Cortez, DO, FACC, FASE, FASKATHI 2024-05-30 09:18:05 CDT CC: CC: CC: XR Chest 1 View Result Date: 05/30/2024 Narrative: EXAMINATION: XR CHEST 1 VIEW History: Shortness of breath Impression: Single view chest exam similar for interpretation with comparison to prior from 03/07/2017. Correlation made with CT from the same day There are diffuse interstitial and airspace opacitiescompatible with moderate pulmonary edema. Likely small effusions. Heart is enlarged. There is a curvilinear density projecting over the right lower lung which corresponds to a catheter or wire in theright lower lobe pulmonary arteries when correlated with the CT examination. This finding is not present on the prior 2017 examination. The presence of this finding was discussed by Dr. Abernathy with Dr. Hollis and documented by Dr. Hollis in the medical record on 05/30/2024 at 457. Electronically signed by: Abilio Post M.D. ECG 12 lead Result Date: 05/30/2024 Narrative: Vent Rate: 86 bpm RR Interval: 697 msec OH Interval: 0 msec QRS Duration: 145 msec QT Interval: 438 msec QTC Interval: 481 msec P-R-T [place]: 0 - 101 - 95 degrees IMPRESSION: ATRIAL FIBRILLATION RIGHT AXIS DEVIATION [QRS AXIS > 100] INTRAVENTRICULAR CONDUCTION DELAY [130+ ms QRS DURATION] ABNORMAL ECG Unchanged compared to 05/29/2021 Electronically Signed By: Dr. Shiloh Muhammad [facility] CT Chest PE (CTA) W Contrast Result Date: 05/30/2024 Narrative: EXAMINATION: CT CHEST PE (CTA) W CONTRAST HISTORY: Chest pain ORDER DATE: 05/30/2024 3:20AM TECHNIQUE: CT chest images were acquired using a chest angiographic protocol with 3-D imaging optimized for PE is obtained mL of Optiray 350 IV. 2D Coronal and sagittal reformats were obtained. 3-D rendering (not supervised by radiologist) MIP and/or 3-D reconstructed images were created by the technologist. FINDINGS: Dual lead pacer device implanted in the left chest wall with leads in the right atrium and right ventricle. Pulmonary arteries: Dilated main pulmonary artery measuring 4.9 cm. Some of the segmental branches are not well assessed for exclusion of subtle emboli due to excessive motion. Otherwise centrally no pulmonary artery emboli. A dislodged catheter is visualized in the distal right pulmonary artery extending into the lobar and segmental right lower lobe pulmonary artery branch, image [id number] 134/coronal series 9. Aorta: Unremarkable. No aortic aneurysm. No aortic dissection. Lungs: Diffuse multilobar septal thickening, peribronchial thickening and increasedground-glass alveolar airspace opacity of the lung parenchyma representing findings of pulmonary interstitial edema. Pleural spaces: Mild left and trace to mild right pleural effusions. Heart: Four-chamber enlarged heart. Reflux of contrast within the hepatic veins and IVC may suggest right heart failure. Trace to mild pericardial effusion present. Lymph nodes: Multiple calcified mediastinal and hilar lymph nodes which suggest prior exposure to granulomatous disease. No lymphadenopathy. Diaphragm: There is a small hiatal hernia. Liver: Coarsened nodular hepatic parenchyma may suggest underlying chronic hepatocellular disease. Liver is prominent in size measuring 17.5 cm. Gallbladder and biliary ducts: Cholecystectomy. Bones/joints: No acute fracture. Soft tissues: Unremarkable. Impression: 1. Motion degraded evaluation of the pulmonary arteries. Some of the segmental branchesare not well assessed for exclusion of subtle emboli. Otherwise centrally no pulmonary artery emboli. 2. Pulmonary arterial hypertension and dislodged the catheter visualized in the distal right pulmonary artery and right lower lobe lobar and segmental pulmonary artery branch. 3. CHF, pulmonary edema and small bilateral pleural effusions. 4. Possible congestive cirrhosis. Correlate with LFTs. 5. Additional findings as described above. Stat report by [facility] . Electronically signed by: Andrea Abernathy M.D. CT Cervical Spine WO Contrast Result Date: 05/30/2024 Narrative: EXAMINATION: CT CERVICAL SPINE WO CONTRAST HISTORY: Neck pain ORDER DATE: 05/29/2024 10:55 PM TECHNIQUE: Multiple helical axial images of the cervical spine were obtained without the administration of contrast. Coronal and sagittal reformatted images were included. FINDINGS: Bones: No acute fracture. Chronic mild C6 loss of vertebral body height present. Normal alignment. Mild right C3-C4 facet arthrosis. C3-C4 disc narrowing and partially calcified bulging disc contributing to udbu-gk-dxtnkked central spinal stenosis. Disc osteophyte complex also contributing to jzty-jv-jupnmejj central spinal stenosis at C4-C5 level. No significant disc bulge or herniation. No severe spinal canal stenosis. Uncovertebral joint hypertrophy contributing to multilevel bilateral neural foraminal stenosis. Lungs: Lung apices are normal. Soft tissues: Unremarkable. Impression: No acute cervical spine injury. Stat report by [facility] Stat report by [facility] Electronically signed by: Andrea Abernathy M.D. CT Head WO Contrast Result Date: 05/30/2024 Narrative: EXAMINATION: CT head without contrast HISTORY: Headache, new or worsening (Age >= 50y) TECHNIQUE: Noncontrast CT of the brain was performed with images acquired from skull base to vertex. COMPARISON: None available. FINDINGS: Brain: Global volume loss and cortical dilatation present. No hemorrhage. Mild chronic microvascular ischemic changes of the periventricular white matter. No mass effect. No edema. Cerebral ventricles: No ventriculomegaly. Paranasal sinuses: Visualized sinuses are unremarkable. No fluid levels. Mastoid air cells: Visualized mastoid air cells are well aerated. Bones: Unremarkable. No acute fracture. Soft tissues: Unremarkable. Impression: No acute intracranial findings. Stat report by [facility] Electronically signed by: Andrea Abernathy M.D. ECG 12 lead Result Date: 05/30/2024 Narrative: Vent Rate: 93 bpm RR Interval: 645 msec OH Interval: 0 msec QRS Duration: 97 msec QT Interval: 197 msec QTC Interval: 247 msec P-R-T [place]: 0 - 118 - 0 degrees IMPRESSION: ATRIAL FIBRILLATION WITH ABERRANT CONDUCTION OR VENTRICULAR PREMATURE COMPLEXES LOW QRS VOLTAGE [QRS DEFLECTION < 0.5/1.0 mV IN LIMB/CHEST LEADS] SEPTAL MYOCARDIAL INFARCTION , PROBABLY OLD [40+ ms Q WAVE IN V1/V2]Nonspecific IVCD LATERAL MYOCARDIAL INFARCTION , OF INDETERMINATE AGE [40+ ms Q WAVE AND/OR ST/T ABNORMALITY IN I/aVL/V5/V6] ABNORMAL ECG Electronically Signed By: Antonio Carlos MD ASSESSMENT/PLAN Controlled type 2 diabetes mellitus with chronic kidney disease, with long-term current use of insulin (HCC) Hypothyroidism Hypotension due to drugs Chronic diastolic congestive heart failure (CMS/HCC) (HCC) Endocarditis Urinary frequency Gastroesophageal reflux disease without esophagitis Paroxysmal atrial fibrillation (CMS/HCC) (HCC) Major depressive disorder CKD (chronic kidney disease) CKD ? Hypokalemia. Recent endocarditis. Recurrent ICD firing. A fib. DM/HTN. Hx of CHF. Hypothyroidism. PLAN Renal fn is stable, ckd/gerald ocasio not indicated. Hold lasix, keep K over 4, Mg over 2. Cards ocasio, ICD interrogation, Hold Tikosyn/BB. Daily RFP. Will d/w cardiology Repeat CHANCE. 06/12, d/w cards, monitor k, mg and cr, recs as above, monitor microscopic hematuria, start mgo and kcl. I can be reached at [phone] with any concerns. Thank you Coleen Samuels MD for the consult. Seth Flores MD [employer] [phone] * Coleen Samuels MD - 06/12/2024 9:51 AM CDT HOSPITALIST PROGRESS NOTE PCP: Oswaldo Serrano [phone] Admit Date: 06/10/2024 11:41 PM LOS: 1 CHIEF COMPLAINT/ BRIEF HOSPITAL COURSE Aicd firing This is a very pleasant 63-year-old female who was recently discharged from [facility] following a stay for endocarditis. The patient was discharged on IV antibiotics given through PICC line. Patient came back to the hospital secondary to her AICD firing five separate times. Cardiology was consulted. They have removed some of the patient patient's which cause QT prolongation INTERVAL HISTORY Patient seems to be feeling little better today. She is in sinus rhythm. I had an extensive talk with her and her sister last night. It sounds as though they were very displeased with the care she received nursing facility. She was only there for 1-2 days. But during that time she was vomiting and fell out of bed and hit her head. EXAM Vitals: 06/12/24 0734 BP: Pulse: Resp: Temp: 36.5 ??C (97.7 ??F) SpO2: Physical Exam Constitutional: Appearance: She is well-developed. She is obese. HENT: Head: Normocephalic. Comments: Patient is a wound over her left eyebrow with sutures. There is some bruising around the upper portion of the eye Right Ear: There is no impacted cerumen. Nose: Nose normal. No congestion or rhinorrhea. Eyes: Conjunctiva/sclera: Conjunctivae normal. Pupils: Pupils are equal, round, and reactive to light. Neck: Thyroid: No thyromegaly. Trachea: No tracheal deviation. Cardiovascular: Rate and Rhythm: Normal rate and regular rhythm. Heart sounds: Normal heart sounds. Pulmonary: Effort: Pulmonary effort is normal. No respiratory distress. Breath sounds: Normal breath sounds. No wheezing or rales. Abdominal: General: Bowel sounds are normal. There is no distension. Palpations: Abdomen is soft. Tenderness: There is no abdominal tenderness. Musculoskeletal: General: No tenderness or deformity. Normal range of motion. Cervical back: Normal range of motion and neck supple. Skin: General: Skin is warm and dry. Findings: Bruising present. No rash. Comments: Patient has bruising and hematoma around PICC line site on right arm Neurological: Mental Status: She is alert and oriented to person, place, and time. Cranial Nerves: No cranial nerve deficit. Deep Tendon Reflexes: Reflexes normal. Psychiatric: Behavior: Behavior normal. DATA Vitals: 06/12/24 0415 06/12/24 0500 06/12/24 0600 06/12/24 0734 BP: 108/47 106/46 Pulse: 82 77 Resp: 21 16 Temp: 36.7 ??C (98.1 ??F) 36.5 ??C (97.7 ??F) TempSrc: Oral Oral SpO2: 95% 90% Weight: Height: I/O last 2 completed shifts: In: 400 [P.O.:400] Out: 0 No intake/output data recorded. LDA: Peripheral IV 06/10/24 20 G Distal;Left;Posterior Forearm (Active) Placement Date/Time: 06/10/24 (c) 0100 Placed by External Staff?: Other hospital Size (Gauge): 20 GLocation Orientation: Distal;Left;Posterior Location: Forearm Inserted by: Placed at [facility] Number of days: 2 PICC Double Lumen 06/05/24 Non-tunneled Power #1 Red, #2 Purple, Right Basilic;Upper arm (Active) Placement Date/Time: 06/05/24 1505 Catheter Time Out Checklist Completed: Yes Hand Hygiene Performed: Yes Site Prep: Chlorhexidine Site Prep Agent has Completely Dried Before Insertion: Yes All 5 Sterile Barriers or Appropriate Barriers Used (Gl... Number of days: 6 24hr Min/Max: Temp Min: 36.4 ??C (97.6 ??F) Max: 37.3 ??C (99.1 ??F) Pulse Min: 73 Max: 100 BP Min: 77/65 Max: 122/67 Resp Min: 9 Max: 33 SpO2 Min: 89 % Max: 97 % CURRENT LAB RESULTS Recent Results (from the past 12 hour(s)) Magnesium Collection Time: 06/12/24 3:44 AM Result Value Ref Range Magnesium 2.0 1.4 - 2.5 mg/dL Renal function panel Collection Time: 06/12/24 3:44 AM Result Value Ref Range Sodium 137 135 - 145 mmol/L Potassium, pl 3.8 3.3 - 4.9 mmol/L Chloride 102 97 - 110 mmol/L CO2 28 22 - 32 mmol/L Anion gap 7 2 - 15 mmol/L BUN 15 6 - 25 mg/dL Creatinine 0.63 0.60 - 1.10 mg/dL Glucose 154 70 - 199 mg/dL Calcium 8.6 8.5 - 10.3 mg/dL Phosphorus, pl 3.3 2.3 - 4.5 mg/dL Albumin 3.1 (L) 3.5 - 5.0 g/dL eGFR Collection Time: 06/12/24 3:44 AM Result Value Ref Range eGFR >90 >=60 mL/min/1.73 m2 Urinalysis reflex to microscopic and culture Urine Collection Time: 06/12/24 6:46 AM Specimen: Urine Result Value Ref Range Color, ur Yellow Yellow Clarity, ur Clear Clear Specific gravity, ur 1.026 1.003 - 1.030 pH, urine 5.0 Protein, ur ql Negative Negative Glucose, ur ql 3+ (A) Negative Ketones, ur Negative Negative Bilirubin, ur Negative Negative Blood, ur 2+ (A) Negative Urobilinogen, ur <2.0 <2.0 mg/dL Nitrite, ur Negative Negative Leukocyte esterase, ur Negative Negative UA reflex comment Reflex to microscopic UA will be performed. Sodium, urine, random Collection Time: 06/12/24 6:46 AM Result Value Ref Range Sodium, ur 105 mmol/L Potassium, urine, random Collection Time: 06/12/24 6:46 AM Result Value Ref Range Potassium conc, ur 43.4 mmol/L Chloride, urine, random Collection Time: 06/12/24 6:46 AM Result Value Ref Range Chloride, ur 78 mmol/L Urinalysis, microscopic only Collection Time: 06/12/24 6:46 AM Result Value Ref Range WBC, ur 0-5 0 - 5 /HPF RBC, ur 11-20 (A) 0 - 2 /HPF Epithelial cells, squamous, ur 1-5 0 - 5 /HPF Culture Reflex Comment Reflex conditions for urine culture (WBC >10) not met. POCT glucose Collection Time: 06/12/24 7:36 AM Result Value Ref Range Glucose, POC 145 70 - 199 mg/dL MEDICATIONS FOR CURRENT ENCOUNTER Scheduled Meds: carvediloL, 25 mg, oral, BID with meals (bkfst, dinner) ceFAZolin, 2 g, intravenous, Q8H GALINA cholecalciferol, 5,000 Units, oral, Daily docusate sodium, 100 mg, oral, BID escitalopram, 5 mg, oral, Daily ferrous sulfate, 65 mg of elemental iron, oral, Daily with breakfast insulin glargine, 0.15 Units/kg, subcutaneous, Nightly insulin lispro, 0-4 Units, subcutaneous, Nightly insulin lispro, 0-5 Units, subcutaneous, TID with meals insulin lispro, 0.05 Units/kg, subcutaneous, TID with meals levothyroxine, 75 mcg, oral, QAM midodrine, 5 mg, oral, TID AC multivit lxdqlnry-utez-EP-calcium, 1 tablet, oral, Daily nortriptyline, 10 mg, oral, Daily pantoprazole DR, 40 mg, oral, Daily potassium chloride ER, 40 mEq, oral, Daily rivaroxaban, 20 mg, oral, Daily with dinner sacubitriL-valsartan, 1 tablet, oral, BID Continuous Infusions: PRN Meds:. albuterol HFA, 2 puff dextrose, 15 g OR dextrose, 250 mL fluticasone propionate, 1 spray glucagon, 1 mg HYDROcodone-acetaminophen, 1 tablet, 1 tablet at 06/12/24 0659 Diet: Dietary Orders (From admission, onward) Start Ordered 06/11/24 2100 Bedtime snack At bedtime Comments: If bedtime BG is less than 100mg/dl, give patient a 15 gram carbohydrate snack. 06/11/24 0036 06/11/24 0116 Adult Diet Restricted; Low Fat, Low Chol, Low Na; No Concentrated Sweets Diet effective now Question Answer Comment (CH) Diet type Restricted Fat / Sodium Restriction: Low Fat, Low Chol, Low Na Diabetic: No Concentrated Sweets 06/11/24 0115 All labs and images done in past 24 hours have been reviewed and addressed by me ASSESSMENT AND PLAN All Diagnosis Present on Admission Unless Otherwise Stated: Principal Problem: Ventricular tachycardia (HCC) Active Problems: Controlled type 2 diabetes mellitus with chronic kidney disease, with long-term current use of insulin (HCC) Hypothyroidism Hypotension due to drugs Chronic diastolic congestive heart failure (CMS/HCC) (HCC) Endocarditis Urinary frequency Gastroesophageal reflux disease without esophagitis Paroxysmal atrial fibrillation (CMS/HCC) (HCC) Major depressive disorder CKD (chronic kidney disease) Unless stated otherwise, all problems were present on admission Today and the treating the patient for VFib which is in moderate exacerbation as evidenced by five discharges or AICD. Telemetry has been reviewed Personally discussed management of VFib with Dr. Marvin of Cardiology. This patient is being intensely monitor for drug toxicity from multiple medications including Lasix, Tikosyn by monitoring telemetry for QT prolongation, creatinine Ventricular tachycardia- AICD interrogated at [facility], noted 5 discharges on thereport. Troponin trended 0.018, 0.030 ( 0.000-0.034)Patient currently on Telemetry Sinus rhythm . Cardiology has seen and has stopped several medications including Tikosyn. I have decreased Lexapro to 5 mg a day rounds to possibly prolonging QT interval DM II- Accu check ACHS cover with SSI, continue Lantus and basal meal time Humalog Reduced ejection fraction heart failure- cardiomegaly noted on chest x-ray, OSH BNP 1600 (19.9-100)no noted edema continue Lasix 40 mg daily, Coreg 25 mg BID and Entresto 24/ BID, last Echo 05/30/24 EF 30% diastolic dysfunction. Endocarditis- Ancef 2g every 8 hours for 10 more days Hypothyroidism- Levothyroxine 75 mcg daily Urinary frequency- Mirabeqron 25 mg daily Hypotension- obtain vital signs per floor protocol and adjust medication as needed continue midodrine 5 mg TID. Will discuss with Cardiology about decreasing Coreg which is currently at 25 mg b.i.d. GERD- Protonix 40 mg daily A-fib- Cardizem has been discontinued . Cardiology to manage anticoagulated with Xarelto 20 mg daily with dinner CKD stage II- labs pending, OSH Creatinine 0.70, BUN 21 and GFR >60 seen at [place] by nephrology will continue to follow at [facility], consulted Depression- Lexapro 10 mg daily and nortriptyline 10 mg daily DVT prophylaxis- Anticoagulated with Xarelto Medical Decision Making Complexity: Moderate Severity of patient: Stable Labs and images that impact medical decision making reviewed on 06/12/2024 Potassium 3.8, patient is in sinus rhythm Consulting physicians: Treatment Team: Consulting Physician: Ty Mcfarland MD; Consulting Physician: Seth Flores MD Disposition: nursing home facility versus home Anticipated discharge date: 06/13 Barriers to discharge: Ambulation, rehabilitation Code status: Full Code This patient was also seen by my medical student. I was present with the medical student for the service. I personally verified the history of present illness and performed the physical examination and medical decision making. I have verified all ofthe medical student???s documentation for this encounter, and have incorporated it into my note where appropriate. Voice recognition software [employer] was used dictate and transcribe this document. Developer Advisor variances may occur. Despite proofreading, typographical errors may occur. Coleen Samuels MD. HOSPITALIST 06/12/2024 9:51 AM * Jory Marvin MD - 06/12/2024 9:21 AM CDT Cardiology Daily Progress SUBJECTIVE: Awake and alert No further episodes of VT Responds appropriately No distress On IV antibiotics Afebrile OBJECTIVE: Vitals: 06/12/24 0415 06/12/24 0500 06/12/24 0600 06/12/24 0734 BP: 108/47 106/46 Pulse: 82 77 Resp: 21 16 Temp: 36.7 ??C (98.1 ??F) 36.5 ??C (97.7 ??F) TempSrc: Oral Oral SpO2: 95% 90% Weight: Height: Intake/Output Summary (Last 24 hours) at 06/12/2024 0921 Last data filed at 06/12/2024 0355 Gross per 24 hour Intake 400 ml Output 0 ml Net 400 ml Scheduled Medications Medication Dose Route Frequency carvediloL (COREG) tablet 25 mg 25 mg oral BID with meals (bkfst, dinner) ceFAZolin (ANCEF) 2,000 mg/100 mL in dextrose (premix) 2 g 2 g intravenous Q8H GALINA cholecalciferol (VITAMIN D-3) tablet 5,000 Units 5,000 Units oral Daily docusate sodium (COLACE) capsule 100 mg 100 mg oral BID escitalopram (LEXAPRO) tablet 5 mg 5 mg oral Daily ferrous sulfate delayed release tablet 65 mg of elemental iron 65 mg of elemental iron oral Daily with breakfast insulin glargine (LANTUS, SEMGLEE) 100 unit/mL injection 17 Units 0.15 Units/kg subcutaneous Nightly insulin lispro (HumaLOG, ADMELOG) 100 unit/mL injection 0-4 Units 0-4 Units subcutaneous Nightly insulin lispro (HumaLOG, ADMELOG) 100 unit/mL injection 0-5 Units 0-5 Units subcutaneous TID with meals insulin lispro (HumaLOG, ADMELOG) 100 unit/mL injection 6 Units 0.05 Units/kg subcutaneous TID withmeals levothyroxine (SYNTHROID) tablet 75 mcg 75 mcg oral QAM midodrine (PROAMATINE) tablet 5 mg 5 mg oral TID AC multivit rtzovewp-ikwc-KX-calcium (THERA-M) tablet 1 tablet 1 tablet oral Daily nortriptyline (PAMELOR) capsule 10 mg 10 mg oral Daily pantoprazole DR (PROTONIX) extended release tablet 40 mg 40 mg oral Daily potassium chloride ER (KLOR-CON) extended release tablet 40 mEq 40 mEq oral Daily rivaroxaban (XARELTO) tablet 20 mg 20 mg oral Daily with dinner sacubitriL-valsartan (ENTRESTO) 24-26 mg tablet 1 tablet 1 tablet oral BID LABS: Recent Labs Lab Units 06/11/24 0107 WBC K/cumm 6.0 6.3 HEMOGLOBIN g/dL 11.5* 11.6* HEMATOCRIT % 35.8 35.8 PLATELETS K/cumm 314 286 Recent Labs Lab Units 06/12/24 0736 06/12/24 0344 06/08/24 0645 06/08/24 0430 SODIUM mmol/L -- 137 < > 136 POTASSIUM PLASMA mmol/L -- 3.8 < > 3.7 CHLORIDE mmol/L -- 102 < > 97 CO2 mmol/L -- 28 < > 30 ANIONGAP mmol/L -- 7 < > 9 GLUCOSE mg/dL -- 154 < > 175 POC GLUCOSE MONITOR mg/dL 145 -- < > -- BUN SERUM mg/dL -- 15 < > 17 CREATININE mg/dL -- 0.63 < > 0.70 CALCIUM mg/dL -- 8.6 < > 9.0 ALBUMIN g/dL -- 3.1* -- 3.2* ALK PHOS Units/L -- -- -- 217* ALT Units/L -- -- -- 5* AST Units/L -- -- -- 21 BILIRUBIN TOTAL mg/dL -- -- -- 0.5 < > = values in this interval not displayed. Lab Results Component Value Date BNP 911 (H) 02/28/2017 BNP 625 (H) 02/11/2017 Lab Results Component Value Date TROPONINI <0.03 02/28/2017 TROPONINI <0.03 02/12/2017 TROPONINI <0.03 02/12/2017 No results found for: TSH Exam General: Comfortable Lungs: symmetric, unlabored, clear to auscultation bilaterally Heart: S1,S2, regular rate & rhythm, no murmurs, rubs, or gallops Abdomen: soft, non-tender, non-distended, bowel sounds present Extremities: no LE edema, palpable peripheral pulses BL Neurologic: No focal deficits ASSESSMENT/PLAN: Episode of syncope -secondary to VF a -no further arrhythmias on telemetry -troponins are normal -CT head unremarkable -chest x-ray cardiomegaly -tikosyn discontinue with concerns for QTC prolongation -no arrhythmias on tele monitor V-fib. -5 episodes of VFib with appropriate ICD firing. -K 3.2 on admission and today it is 3.8 - magnesium 2.0 - previous C that was negative for CAD. Given normal troponin no need for IP cath. Questionable endocarditis. -no vegetations seen on CHANCE last admission. - to continue antibiotics as per Infectious Disease until 06-09-24 Persistent Atrial fibrillation. - CHANCE 05/31/24 that showed left atrial appendage clot therefore no CV - placed on tikosyn 500 mcg BID with plans to CV at later date. -On xarelto for AC. -Check TSH and replete lytes. -Tikosyn and calcium channel blockers been discontinued. Dislodged catheter. in pulmonary artery noted on CT chest and CHANCE last admission. Chronic systolic congestive heart failure. -Clinically compensated at this time. -EF 30% by echo last admit. Continue BB and Entresto. -diuretics on home. Diabetes type 2 -per hospitalist Hypothyroid -treated Clinically stable Jory Marvin MD, [facility] 06/12/2024 9:21 AM documented in this encounter H&P Notes * Rachel Barnes, PAN DEVULCANIZER - 06/11/2024 1:22 AM CDT History and Physical DATE OF SERVICE: 06/11/2024 3:51 AM Primary Care Physician: Oswaldo Serrano MD [phone] SUBJECTIVE: Patient is a 63 y.o. female with a PMHx significant for A-fib, CHF, DM II, GERD, HTN, Intellectual disability, OAB, Sleep apnea, thyroid disease and endocarditis Patient presents to ED with chief complaint of Syncope and fall. HPI: patient from nursing facility [facility]. Patient daughter was visiting and reported that patient began to have nausea and vomiting 1215 p. Daughter noted that patient was shaky andholding head as if she had a headache. Patient had episode of vomiting and then had syncopal event falling forward and hitting her head. Patient did not remember the fall only feeling dizzy/lightheaded prior. Patient reported chest pain and headache. EMS was called and patient was transported to [facility]. EMS reported episode of Vtach in route. Patient AICD was interrogated and 5 discharges were noted. Patient was transferred to [facility] for higher level of care. Patient daughter did not come to [facility] with her. Patient at baseline is A+Ox4 with slow responses. Patient does not have much recall of the incident. Patient had CT of head, cervical spine, abdomen and pelvis at [place] with no acute findings. Patient was recently admitted 05/29/24-06/08/24 for endocarditis and is still on Ancef 2 g every 8 hours. Past Medical History: Diagnosis Date A-fib (CMS/HCC) (HCC) CHF (congestive heart failure) (CMS/HCC) (HCC) Diabetes mellitus (HCC) GERD (gastroesophageal reflux disease) Hypertension Intellectual disability OAB (overactive bladder) Sleep apnea Thyroid disease Past Surgical History: Procedure Laterality Date CARDIAC DEFIBRILLATOR PLACEMENT CHOLECYSTECTOMY INSERT / REPLACE / REMOVE PACEMAKER IR PICC LINE PLACEMENT > 5 YEARS N/A 06/05/2024 OTHER SURGICAL HISTORY 05/31/2024 CHANCE/CARDIOVERSION Medications Prior to Admission Medication Sig Dispense Refill Last Dose albuterol HFA (PROVENTIL HFA,VENTOLIN HFA,PROAIR HFA) 90 mcg/actuation inhaler Inhale 2 puffs every6 (six) hours as needed for wheezing BASAGLAR 100 unit/mL (3 mL) pen for injection Inject 18 Units under the skin daily carvediloL (COREG) 25 mg tablet Take 1 tablet (25 mg total) by mouth 2 (two) times a day with meals ceFAZolin (ANCEF) 2,000 mg/100 mL IVPB Infuse 100 mL (2 g total) into a venous catheter every 8 (eight) hours for 14 days 4200 mL 0 cholecalciferol (VITAMIN D-3) 5,000 unit tablet Take 1 tablet (5,000 Units total) by mouth daily dilTIAZem (CARDIZEM) 30 mg tablet Take 1 tablet (30 mg total) by mouth 2 (two) times a day docusate sodium (COLACE) 100 mg capsule Take 1 capsule (100 mg total) by mouth 2 (two) times a day dofetilide (TIKOSYN) 500 mcg capsule Take 1 capsule (500 mcg total) by mouth 2 (two) times a day for 711 doses 60 capsule 11 Entresto 24-26 mg tablet Take 1 tablet by [...] tablet (40 mg total) by mouth daily Gemtesa 75 mg tablet Take 1 tablet by mouth daily HYDROcodone-acetaminophen (NORCO) 5-325 mg per tablet Take 1 tablet by mouth 4 (four) times a day as needed for pain for up to 7 days 15 tablet 0 levothyroxine (SYNTHROID) 75 mcg tablet Take 1 tablet (75 mcg total) by mouth every morning midodrine (PROAMATINE) 5 mg tablet Take 1 tablet (5 mg total) by mouth 3 (three) times a day beforemeals 90 tablet 0 multivit ticocxxc-zsbs-QJ-calcium (THERA-M) 9 mg iron-400 mcg tablet Take 1 tablet by mouth daily nortriptyline (PAMELOR) 10 mg capsule Take 1 capsule (10 mg total) by mouth daily NovoLOG 100 unit/mL (3 mL) pen for injection Inject 10 Units under the skin 3 (three) times a day with meals Plus slide omeprazole (PriLOSEC) 20 mg capsule Take 1 capsule (20 mg total) by mouth daily potassium chloride ER 20 mEq CR tablet Take 1 tablet (20 mEq total) by mouth daily Xarelto 20 mg tablet Take 1 tablet (20 mg total) by mouth daily with dinner Allergies Allergen Reactions Sulfa (Sulfonamide Antibiotics) Social History Tobacco Use Smoking status: Never Smokeless tobacco: Never Substance and Sexual Activity Drug use: Not on file Sexual activity: Not on file Alcohol Use: Not At Risk (06/01/2024) AUDIT-C Frequency of Alcohol Consumption: Never Average Number of Drinks: Patient does not drink Frequency of Binge Drinking: Never No family history on file. Review of Systems: Review of Systems Constitutional: Negative for chills, diaphoresis, fatigue and fever. HENT: Negative for congestion, facial swelling, sore throat and trouble swallowing. Eyes: Negative for discharge, redness and visual disturbance. Respiratory: Negative for cough, shortness of breath and wheezing. Cardiovascular: Positive for chest pain. Negative for palpitations and leg swelling. Gastrointestinal: Negative for abdominal distention, abdominal pain, nausea and vomiting. Endocrine: Negative for cold intolerance and heat intolerance. Genitourinary: Negative for difficulty urinating, dysuria, flank pain, frequency, hematuria and urgency. Musculoskeletal: Negative for back pain, joint swelling and neck pain. Skin: Negative for rash and wound. Laceration to head 2/2 syncope Neurological: Positive for dizziness, syncope, light-headedness and headaches. Negative for seizures, speech difficulty and numbness. Hematological: Does not bruise/bleed easily. Psychiatric/Behavioral: Negative for agitation and confusion. OBJECTIVE: Vitals: Arrival Vitals [06/11/24 0010] Temp 36.2 ??C (97.2 ??F) Pulse Resp BP SpO2 Temp src Oral Heart Rate Source Patient Position BP Location FiO2 (%) 24hr Min/Max: Temp Min: 36.2 ??C (97.2 ??F) Max: 36.2 ??C (97.2 ??F) Pulse Min: 91 Max: 102 BP Min: 101/68 Max: 133/84 Resp Min: 9 Max: 31 SpO2 Min: 90 % Max: 97 % Most Recent : Vitals: 06/11/24 0100 06/11/24 0115 06/11/24 0130 06/11/24 0145 BP: 120/72 133/84 Pulse: 92 92 93 102 Resp: (!) 31 Temp: TempSrc: SpO2: 93% 97% 96% 93% Weight: 115.1 kg (253 lb 11.2 oz) Height: 165.1 cm (5' 5 ) No intake/output data recorded. No intake/output data recorded. Physical exam: Physical Exam Vitals and nursing note reviewed. Constitutional: General: She is not in acute distress. Appearance: Normal appearance. She is well-developed. She is not ill-appearing. HENT: Head: Normocephalic and atraumatic. Right Ear: External ear normal. Left Ear: External ear normal. Nose: Nose normal. No congestion or rhinorrhea. Mouth/Throat: Mouth: Mucous membranes are moist. Pharynx: Oropharynx is clear. No oropharyngeal exudate or posterior oropharyngeal erythema. Eyes: Extraocular Movements: Extraocular movements intact. Conjunctiva/sclera: Conjunctivae normal. Pupils: Pupils are equal, round, and reactive to light. Cardiovascular: Rate and Rhythm: Normal rate and regular rhythm. Pulses: Normal pulses. Heart sounds: Normal heart sounds. Pulmonary: Effort: Pulmonary effort is normal. No respiratory distress. Breath sounds: Normal breath sounds. No wheezing. Abdominal: General: Bowel sounds are normal. There is no distension. Palpations: Abdomen is soft. There is no mass. Tenderness: There is no abdominal tenderness. Musculoskeletal: General: Normal range of motion. Cervical back: Normal range of motion and neck supple. Skin: General: Skin is warm and dry. Capillary Refill: Capillary refill takes less than 2 seconds. Findings: No rash. Comments: Laceration to forhead Neurological: General: No focal deficit present. Mental Status: She is alert and oriented to person, place, and time. Mental status is at baseline. Cranial Nerves: No cranial nerve deficit. Psychiatric: Mood and Affect: Mood normal. Behavior: Behavior normal. Lab/Radiology/Diagnostic Review: Laboratory review: Lab results in the last 24 hours: Recent Results (from the past 24 hour(s)) POCT glucose Collection Time: 06/11/24 12:07 AM Result Value Ref Range Glucose, POC 111 70 - 199 mg/dL Basic metabolic panel Collection Time: 06/11/24 1:07 AM Result Value Ref Range Sodium 141 135 - 145 mmol/L Potassium, pl 3.2 (L) 3.3 - 4.9 mmol/L Chloride 102 97 - 110 mmol/L CO2 28 22 - 32 mmol/L Anion gap 11 2 - 15 mmol/L BUN 15 6 - 25 mg/dL Creatinine 0.63 0.60 - 1.10 mg/dL Glucose 100 70 - 199 mg/dL Calcium 9.0 8.5 - 10.3 mg/dL Magnesium Collection Time: 06/11/24 1:07 AM Result Value Ref Range Magnesium 2.0 1.4 - 2.5 mg/dL CBC without differential Collection Time: 06/11/24 1:07 AM Result Value Ref Range WBC 6.3 3.8 - 9.9 K/cumm Hgb 11.6 (L) 11.9 - 15.5 g/dL Hct 35.8 35.6 - 45.5 % Plt 286 150 - 400 K/cumm MPV 9.3 9.1 - 12.3 fL RBC 3.57 (L) 3.90 - 5.20 M/cumm MCV 100.3 (H) 81.3 - 96.4 fL MCH 32.5 27.1 - 33.3 pg MCHC 32.4 32.3 - 35.7 g/dL RDW CV 12.6 11.1 - 14.9 % RDW SD 46.6 35.7 - 48.1 fL NRBC abs 0.00 0.00 - 0.01 K/cumm eGFR Collection Time: 06/11/24 1:07 AM Result Value Ref Range eGFR >90 >=60 mL/min/1.73 m2 CBC with auto differential Collection Time: 06/11/24 1:07 AM Result Value Ref Range WBC 6.0 3.8 - 9.9 K/cumm Hgb 11.5 (L) 11.9 - 15.5 g/dL Hct 35.8 35.6 - 45.5 % Plt 314 150 - 400 K/cumm MPV 9.7 9.1 - 12.3 fL RBC 3.60 (L) 3.90 - 5.20 M/cumm MCV 99.4 (H) 81.3 - 96.4 fL MCH 31.9 27.1 - 33.3 pg MCHC 32.1 (L) 32.3 - 35.7 g/dL RDW CV 12.6 11.1 - 14.9 % RDW SD 45.7 35.7 - 48.1 fL NRBC abs 0.00 0.00 - 0.01 K/cumm Differential, auto Collection Time: 06/11/24 1:07 AM Result Value Ref Range Neutrophil abs 4.0 1.5 - 6.5 K/cumm Imm gran abs 0.0 0.0 - 0.1 K/cumm Lymphocyte abs 1.3 0.8 - 3.3 K/cumm Monocyte abs 0.5 0.2 - 0.8 K/cumm Eosinophil abs 0.1 0.0 - 0.5 K/cumm Basophil abs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 dateof antibiotic being 06/22. She has an indwelling PICC line which was placed last admission. This admission is status post fall after witnessing nausea and vomiting again, she hit her foreheadwhen she fell and has stitches. EMS was called patient was transported to [facility] when she was seen to be in V-tach EN route, and AICD was interrogated and discharges were recorded and and she was transferred to [facility] for further evaluation and management. We are asked to see her again due to ongoing antibiotic therapy for MSSA bacteremia and presence ofICD. PMH: Past Medical History: Diagnosis Date A-fib ([facility]) (HCC) CHF (congestive heart failure) ([facility]) (HCC) Diabetes mellitus (HCC) GERD (gastroesophageal reflux disease) Hypertension Intellectual disability OAB (overactive bladder) Sleep apnea Thyroid disease Past Surgical History: Procedure Laterality Date CARDIAC DEFIBRILLATOR PLACEMENT CHOLECYSTECTOMY INSERT / REPLACE / REMOVE PACEMAKER IR PICC LINE PLACEMENT > 5 YEARS N/A 06/05/2024 OTHER SURGICAL HISTORY 05/31/2024 CHANCE/CARDIOVERSION Med: Current Facility-Administered Medications Medication Dose Route Frequency Provider Last Rate Last Admin albuterol HFA (PROVENTIL HFA,VENTOLIN HFA,PROAIR HFA) 90 mcg/actuation inhaler 2 puff 2 puff inhalation Q6H PRN (RT) Dilan Palmer MD carvediloL (COREG) tablet 25 mg 25 mg oral BID with meals (bkfst, dinner) Rachel Barnes, PAN DEVULCANIZER 25 mg at 06/11/24 174 ceFAZolin (ANCEF) 2,000 mg/100 mL in dextrose (premix) 2 g 2 g intravenous Q8H [facility] Rachel Barnes NP 200 mL/hr at 06/12/24 0849 2 g at 06/12/24 0849 cholecalciferol (VITAMIN D-3) tablet 5,000 Units 5,000 Units oral Daily Rachel Barnes NP 5,000 Units at 06/12/24 0849 dextrose oral liquid liquid 15 g 15 g oral Q15 Min PRN Rachel Barnes NP Or dextrose (D10W) 10% bolus 250 mL 250 mL intravenous Q15 Min PRN Rachel Barnes NP docusate sodium (COLACE) capsule 100 mg 100 mg oral BID Rachel Barnes NP 100 mg at 848 escitalopram (LEXAPRO) tablet 5 mg 5 mg oral Daily Coleen Samuels MD 5 mg at 06/12/24 0848 ferrous sulfate delayed release tablet 65 mg of elemental iron 65 mg of elemental iron oral Daily with breakfast Rachel Barnes NP 65 mg of elemental iron at 06/12/24 0848 fluticasone propionate (FLONASE) 50 mcg/actuation nasal spray 1 spray 1 spray each nostril Daily PRN Rachel Barnes NP glucagon injection 1 mg 1 mg intramuscular Q30 Min PRN Rachel Barnes NP HYDROcodone-acetaminophen (NORCO) 5-325 mg per tablet 1 tablet 1 tablet oral QID PRN Dilan Palmer MD 1 tablet at 06/12/24 0659 insulin glargine (LANTUS, SEMGLEE) 100 unit/mL injection 17 Units 0.15 Units/kg subcutaneous Nightly Rachel Barnes NP 17 Units at 06/11/24 2057 insulin lispro (HumaLOG, ADMELOG) 100 unit/mL injection 0-4 Units 0-4 Units subcutaneous Nightly Rachel Barnes NP insulin lispro (HumaLOG, ADMELOG) 100 unit/mL injection 0-5 Units 0-5 Units subcutaneous TID with meals Rachel Barnes NP 2 Units at 06/11/24 1741 insulin lispro (HumaLOG, ADMELOG) 100 unit/mL injection 6 Units 0.05 Units/kg subcutaneous TID withmeals Rachel Barnes, PAN DEVULCANIZER 6 Units at 06/12/24 0849 levothyroxine (SYNTHROID) tablet 75 mcg 75 mcg oral QAM Rachel Barnes, PAN DEVULCANIZER 75 mcg at 635 midodrine (PROAMATINE) tablet 5 mg 5 mg oral TID AC Rachel Barnes, PAN DEVULCANIZER 5 mg at 06/12/24 0659 multivit bvcpwxps-yeqy-IW-calcium (THERA-M) tablet 1 tablet 1 tablet oral Daily Rachel Barnes, PAN DEVULCANIZER 1 tablet at 06/12/24 0848 nortriptyline (PAMELOR) capsule 10 mg 10 mg oral Daily Rachel Barnes, PAN DEVULCANIZER 10 mg at 06/12/[address] (PROTONIX) extended release tablet 40 mg 40 mg oral Daily Rachel Barnes, PAN DEVULCANIZER 40 mg at 06/12/24 0848 potassium chloride ER (KLOR-CON) extended release tablet 40 mEq 40 mEq oral Daily Coleen Samuels MD 40 mEq at 06/12/24 0848 rivaroxaban (XARELTO) tablet 20 mg 20 mg oral Daily with dinner Rachel Barnes PAN DEVULCANIZER 20 mg at 06/11/24 1741 sacubitriL-valsartan (ENTRESTO) 24-26 mg tablet 1 tablet 1 tablet oral BID Rachel Barnes, NP1 tablet at 06/12/24 0848 Allergies: Allergies Allergen Reactions Sulfa (Sulfonamide Antibiotics) SH: Social History Tobacco Use Smoking status: Never Smokeless tobacco: Never Substance and Sexual Activity Drug use: Not on file Sexual activity: Not on file Alcohol Use: Not At Risk (06/01/2024) AUDIT-C Frequency of Alcohol Consumption: Never Average Number of Drinks: Patient does not drink Frequency of Binge Drinking: Never FH: No family history on file. Review of Systems: 14 point review of systems is negative except for what I have already mentioned above in the history of present illness. Very poor historian. Could not elicit any meaningful interview. Objective: Vitals: 24hr Min/Max: Temp Min: 36.5 ??C (97.7 ??F) Max: 37.3 ??C (99.1 ??F) Pulse Min: 73 Max: 100 BP Min: 77/65 Max: 122/67 Resp Min: 9 Max: 33 SpO2 Min: 89 % Max: 97 % Most Recent : Vitals: 06/12/24 0500 06/12/24 0600 06/12/24 0734 06/12/24 1200 BP: 108/47 106/46 Pulse: 82 77 Resp: 21 16 Temp: 36.5 ??C (97.7 ??F) 36.7 ??C (98 ??F) TempSrc: Oral Axillary SpO2: 95% 90% Weight: Height: Physical Exam: General appearance: alert, cooperative, no distress HEENT: (-)icterus, Oropharnyx is normal, forehead with stitches, site is clean Neck: No palpable LN Lungs: breath sounds normal and symmetric; minimal respiratory effort, no r/w/c Heart: normal S1 and S2, no m/r/g Abdomen: soft without mass, non-tender, +bowel sounds, no HSM Extremities/Skin: no gross deformities, FROM, no new rashes, no ulcerations Vascular: no Edema, pulses present bilaterally Neuro: No focal deficits Psych: Appropriate mood and affect Double-lumen PICC line right upper extremity placed 06/05, site is clean Labs Reviewed. Recent Labs Lab Units 06/11/24 0107 06/08/24 0430 06/07/24 0400 WBC K/cumm 6.0 6.3 5.5 6.1 HEMOGLOBIN g/dL 11.5* 11.6* 11.9 11.8* HEMATOCRIT % 35.8 35.8 37.0 36.7 PLATELETS K/cumm 314 286 295 299 Recent Labs Lab Units 06/12/24 0344 06/11/24 0107 06/08/24 0430 BUN SERUM mg/dL 15 15 17 CREATININE mg/dL 0.63 0.63 0.70 Lab Results Component Value Date ALT 5 (L) 06/08/2024 AST 21 06/08/2024 ALKPHOS 217 (H) 06/08/2024 BILITOT 0.5 06/08/2024 Cultures No results found for the last 90 days. Imaging CTA right upper extremity with no evidence of hematoma or drainable fluid collection. Patent arterial system. No evidence of DVT Assessment: MSSA bacteremia Called microlab during last admission, [facility] blood cultures 05/25 NG. blood cultures were positive for Staph aureus 05/21 and 05/22 Documented at outside hospital, unknown date so far will follow-up with [facility]. 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 Discussed case with Dr. Neli Hutchinson during last admission She underwent CHANCE, with no visible valve vegetation. Repeat blood cultures 05/30 no growth She has AICD in place. There was a clot in MAULIK, probably an appendage clot, hence synchronized Cardioversion was canceled on last admission. Electrophysiology/Cardiology team was following and there was plan for Bi V ICD after completing antibiotic course. Nausea vomiting/syncope due to VF/fall Cardiology is following Dislodged catheter/lead.. PA Atrial fibrillation CHF GERD Hypertension Obstructive sleep apnea Thyroid disease Intellectual disability Plan: . Continue on Ancef to complete therapy till 06/22, due to presence of AICD. Follow up on blood cultures. Monitor fever curve and WBC count. Afebrile currently noted no leukocytosis. Blood cultures were negative at outside hospital from 05/25, blood cultures negative at this facility from 05/30 CT abdomen and pelvis 06/01 With no significant infectious findings IR guided PICC line placement on 06/05. Right upper extremity, Dopplers with no DVT, CTA with no hematoma/fluid collection. CBC, CMP to be obtained weekly while on IV Ancef and labs to be faxed to [facility]. Will follow. Thanks for Consulting Infectious Diseases. Will follow. Eben Pettit MD 06/12/2024 [facility] Office: [phone] Fax: [phone] Voice recognition software was used to complete this document, therefore, hand spray operator variances may occur. * Seth Flores MD - 06/11/2024 8:25 PM CDT Nephrology Consult [facility] Reason for Consult: CKD Requesting Provider: Coleen Samuels MD Subjective Patient is a 63 y.o. female with chief complaint of icd firing. 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 Recent admit with ICD firing. Recent bacteremia? Hx unclear. EGFR normal. ICD firing. Concerns for electrolyte abnomalities precipitating ICD firing. Renal consulted. Daughter at bedside but cannot give me an accurate hx. PMHx Patient is a 63 y.o. female with a PMHx significant for A-fib, CHF, DM II, GERD, HTN, Intellectual disability, OAB, Sleep apnea, thyroid disease and endocarditis Patient presents to ED with chief complaint of Syncope and fall. HPI: patient from nursing facility [facility]. Patient daughter was visiting and reported that patient began to have nausea and vomiting 1215 p. Daughter noted that patient was shaky andholding head as if she had a headache. Patient had episode of vomiting and then had syncopal event falling forward and hitting her head. Patient did not remember the fall only feeling dizzy/lightheaded prior. Patient reported chest pain and headache. EMS was called and patient was transported to [facility]. EMS reported episode of Vtach in route. Patient AICD was interrogated and 5 discharges were noted. Patient was transferred to [facility] for higher level of care. Patient daughter did not come to [facility] with her. Patient at baseline is A+Ox4 with slow responses. Patient does not have much recall of the incident. Patient had CT of head, cervical spine, abdomen and pelvis at [place] with no acute findings. Patient was recently admitted 05/29/24-06/08/24 for endocarditis and is still on Ancef 2 g every 8 hours. Past Medical History: Diagnosis Date A-fib ([facility]) ([facility]) CHF (congestive heart failure) ([facility]) ([facility]) Diabetes mellitus (HCC) GERD (gastroesophageal reflux disease) Hypertension Intellectual disability OAB (overactive bladder) Sleep apnea Thyroid disease Past Surgical History: Procedure Laterality Date CARDIAC DEFIBRILLATOR PLACEMENT CHOLECYSTECTOMY INSERT / REPLACE / REMOVE PACEMAKER IR PICC LINE PLACEMENT > 5 YEARS N/A 06/05/2024 OTHER SURGICAL HISTORY 05/31/2024 CHANCE/CARDIOVERSION Medications Prior to Admission Medication Sig Dispense Refill Last Dose albuterol HFA (PROVENTIL HFA,VENTOLIN HFA,PROAIR HFA) 90 mcg/actuation inhaler Inhale 2 puffs every6 (six) hours as needed for wheezing BASAGLAR 100 unit/mL (3 mL) pen for injection Inject 18 Units under the skin daily carvediloL (COREG) 25 mg tablet Take 1 tablet (25 mg total) by mouth 2 (two) times a day with meals ceFAZolin (ANCEF) 2,000 mg/100 mL IVPB Infuse 100 mL (2 g total) into a venous catheter every 8 (eight) hours for 14 days 4200 mL 0 cholecalciferol (VITAMIN D-3) 5,000 unit tablet Take 1 tablet (5,000 Units total) by mouth daily dilTIAZem (CARDIZEM) 30 mg tablet Take 1 tablet (30 mg total) by mouth 2 (two) times a day docusate sodium (COLACE) 100 mg capsule Take 1 capsule (100 mg total) by mouth 2 (two) times a day dofetilide (TIKOSYN) 500 mcg capsule Take 1 capsule (500 mcg total) by mouth 2 (two) times a day for 711 doses 60 capsule 11 Entresto 24-26 mg tablet Take 1 tablet by [...] tablet (40 mg total) by mouth daily Gemtesa 75 mg tablet Take 1 tablet by mouth daily HYDROcodone-acetaminophen (NORCO) 5-325 mg per tablet Take 1 tablet by mouth 4 (four) times a day as needed for pain for up to 7 days 15 tablet 0 levothyroxine (SYNTHROID) 75 mcg tablet Take 1 tablet (75 mcg total) by mouth every morning midodrine (PROAMATINE) 5 mg tablet Take 1 tablet (5 mg total) by mouth 3 (three) times a day beforemeals 90 tablet 0 multivit kblyahsj-qczq-RI-calcium (THERA-M) 9 mg iron-400 mcg tablet Take 1 tablet by mouth daily nortriptyline (PAMELOR) 10 mg capsule Take 1 capsule (10 mg total) by mouth daily NovoLOG 100 unit/mL (3 mL) pen for injection Inject 10 Units under the skin 3 (three) times a day with meals Plus slide omeprazole (PriLOSEC) 20 mg capsule Take 1 capsule (20 mg total) by mouth daily potassium chloride ER 20 mEq CR tablet Take 1 tablet (20 mEq total) by mouth daily Xarelto 20 mg tablet Take 1 tablet (20 mg total) by mouth daily with dinner Allergies Allergen Reactions Sulfa (Sulfonamide Antibiotics) Social History Tobacco Use Smoking status: Never Smokeless tobacco: Never Substance and Sexual Activity Drug use: Not on file Sexual activity: Not on file Alcohol Use: Not At Risk (06/01/2024) AUDIT-C Frequency of Alcohol Consumption: Never Average Number of Drinks: Patient does not drink Frequency of Binge Drinking: Never No family history on file. Review of Systems: As per HPI Objective Vitals: 24hr Min/Max: Temp Min: 36.2 ??C (97.2 ??F) Max: 37.3 ??C (99.1 ??F) Pulse Min: 73 Max: 103 BP Min: 77/65 Max: 133/84 Resp Min: 9 Max: 36 SpO2 Min: 87 % Max: 97 % Most Recent: Vitals: 06/11/24 1700 06/11/24 1800 06/11/24 1901 06/11/241952 BP: 101/46 (!) 96/41 Pulse: 86 79 82 Resp: 19 23 Temp: 36.6 ??C (97.9 ??F) TempSrc: Oral SpO2: 97% 94% Weight: Height: No intake or output data in the 24 hours ending 06/11/242025 Physical Exam: HEENT wnl ICD l chest. 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 Exam: Lab/Radiology/Diagnostic Review: Recent Results (from the past 24 hour(s)) POCT glucose Collection Time: 06/11/24 12:07 AM Result Value Ref Range Glucose, POC 111 70 - 199 mg/dL Basic metabolic panel Collection Time: 06/11/24 1:07 AM Result Value Ref Range Sodium 141 135 - 145 mmol/L Potassium, pl 3.2 (L) 3.3 - 4.9 mmol/L Chloride 102 97 - 110 mmol/L CO2 28 22 - 32 mmol/L Anion gap 11 2 - 15 mmol/L BUN 15 6 - 25 mg/dL Creatinine 0.63 0.60 - 1.10 mg/dL Glucose 100 70 - 199 mg/dL Calcium 9.0 8.5 - 10.3 mg/dL Magnesium Collection Time: 06/11/24 1:07 AM Result Value Ref Range Magnesium 2.0 1.4 - 2.5 mg/dL CBC without differential Collection Time: 06/11/24 1:07 AM Result Value Ref Range WBC 6.3 3.8 - 9.9 K/cumm Hgb 11.6 (L) 11.9 - 15.5 g/dL Hct 35.8 35.6 - 45.5 % Plt 286 150 - 400 K/cumm MPV 9.3 9.1 - 12.3 fL RBC 3.57 (L) 3.90 - 5.20 M/cumm MCV 100.3 (H) 81.3 - 96.4 fL MCH 32.5 27.1 - 33.3 pg MCHC 32.4 32.3 - 35.7 g/dL RDW CV 12.6 11.1 - 14.9 % RDW SD 46.6 35.7 - 48.1 fL NRBC abs 0.00 0.00 - 0.01 K/cumm eGFR Collection Time: 06/11/24 1:07 AM Result Value Ref Range eGFR >90 >=60 mL/min/1.73 m2 CBC with auto differential Collection Time: 06/11/24 1:07 AM Result Value Ref Range WBC 6.0 3.8 - 9.9 K/cumm Hgb 11.5 (L) 11.9 - 15.5 g/dL Hct 35.8 35.6 - 45.5 % Plt 314 150 - 400 K/cumm MPV 9.7 9.1 - 12.3 fL RBC 3.60 (L) 3.90 - 5.20 M/cumm MCV 99.4 (H) 81.3 - 96.4 fL MCH 31.9 27.1 - 33.3 pg MCHC 32.1 (L) 32.3 - 35.7 g/dL RDW CV 12.6 11.1 - 14.9 % RDW SD 45.7 35.7 - 48.1 fL NRBC abs 0.00 0.00 - 0.01 K/cumm Differential, auto Collection Time: 06/11/24 1:07 AM Result Value Ref Range Neutrophil abs 4.0 1.5 - 6.5 K/cumm Imm gran abs 0.0 0.0 - 0.1 K/cumm Lymphocyte abs 1.3 0.8 - 3.3 K/cumm Monocyte abs 0.5 0.2 - 0.8 K/cumm Eosinophil abs 0.1 0.0 - 0.5 K/cumm Basophil abs 0.1 0.0 - 0.1 K/cumm Neutrophil pct 65.7 % Imm gran pct 0.7 % Lymphocyte pct 21.4 % Monocyte pct 8.8 % Eosinophil pct 2.2 % Basophil pct 1.2 % POCT glucose Collection Time: 06/11/24 8:17 AM Result Value Ref Range Glucose, POC 152 70 - 199 mg/dL POCT glucose Collection Time: 06/11/24 12:52 PM Result Value Ref Range Glucose, POC 179 70 - 199 mg/dL POCT glucose Collection Time: 06/11/24 4:08 PM Result Value Ref Range Glucose, POC 264 (H) 70 - 199 mg/dL POCT glucose Collection Time: 06/11/24 5:28 PM Result Value Ref Range Glucose, POC 208 (H) 70 - 199 mg/dL POCT glucose Collection Time: 06/11/24 7:52 PM Result Value Ref Range Glucose, POC 132 70 - 199 mg/dL CTA Upper Extremity Right W WO Contrast Result Date: 06/07/2024 Narrative: EXAMINATION: CTA UPPER EXTREMITY RIGHT W WO CONTRAST HISTORY: Right upper arm swelling ORDER DATE: 06/06/2024 10:40 PM TECHNIQUE: Imaging protocol: Computed tomographic angiography of the right upper extremity with contrast, including non-contrast images if performed. 3D rendering (Not supervised by radiologist): MIP and/or 3D reconstructed images were created by the technologist. Contrast material: OPTIRAY 350; Contrast volume: 119 ml IV COMPARISON: CT CHEST PE (CTA) W CONTRAST 05/30/2024 FINDINGS: Tubes, catheters and devices: There is a PICC line inserted through the right basilicvein at the level of the distal arm. There is mild fat stranding within the anterior distal arm, without sizable hematoma or drainable fluid collection. No evidence of active extravasation. Pulmonaryarteries: There is a partially visualized curvilinear metallic structure within the right pulmonaryartery, similar to prior. Right subclavian artery: No acute findings. No occlusion or significant stenosis. Axillary artery: No acute findings. No occlusion or significant stenosis. Brachial artery: No acute findings. No occlusion or significant stenosis. Radial artery: No acute findings. No occlusion or significant stenosis. Ulnar artery: No acute findings. No occlusion or significant stenosis. Veins: Peripheral intravenous access is seen within the cephalic vein at the level of the antecubital fossa. Impression: 1. Patent arterial system of the right upper extremity as detailed above. 2. No evidence of hematoma or drainable fluid collection Stat report by [facility] Electronically signed by: Andrea Abernathy M.D. ECG 12 lead Result Date: 06/06/2024 Narrative: Vent Rate: 78 bpm RR Interval: 763 msec [place] Interval: 0 msec QRS Duration: 154 msec QT Interval: 473 msec QTC Interval: 506 msec P-R-T [place]: 0 - 23 - 94 degrees IMPRESSION: ATRIAL FIBRILLATION Occasional ventricular pacing INDETERMINATE AXIS Left bundle branch block ABNORMAL ECG Electronically Signed By: Dr. Shiloh Muhammad [facility] US Vein Duplex Upper Extremity Right Limited, Unilateral Result Date: 06/06/2024 Narrative: EXAMINATION: US VEIN DUPLEX UPPER EXTREMITY RIGHT LIMITED, UNILATERAL HISTORY: The patient is a 63-year-old female who presents with swelling in the right upper extremity. TECHNIQUE: Rightupper extremity venous duplex study was performed with hahn scale imaging, color Doppler imaging and spectral waveform analysis. FINDINGS: There is normal compressibility and phasicity in both internal jugular and subclavian veins as well as the right axillary, brachial, radial, ulnar, cephalic andbasilic veins. Imaging of these veins reveals no thrombus within the lumen. Impression: There is no evidence of acute DVT in the right upper extremity. Electronically signed by: Conrad Davila M.D. XR Chest Pa Lateral 2 Views Result Date: 06/06/2024 Narrative: EXAMINATION: XR CHEST PA LATERAL 2 VIEWS HISTORY: The patient is a 63-year-old female who has had placement of a PICC line. Comparison made with the previous study dated 12/26/2020. TECHNIQUE: AP and lateral view of the chest. FINDINGS: The distal tip of the right PICC line is in the distal superior vena cava. Cardiomegaly with aortic atherosclerosis. No failure. No active infiltrate. Impression: No failure. Electronically signed by: Conrad Davila M.D. IR PICC Line Placement Over 5 Years of Age Result Date: 06/05/2024 Narrative: EXAMINATION: IR PICC LINE PLACEMENT OVER 5 YEARS OF AGE DATE: 06/05/2024 2:05 PM HISTORY:sepsis Unsuccessful attempt at bedside PICC line placement by in-house vascular team. TECHNIQUE: The risks, benefits, and alternatives were discussed and informed consent was obtained. Prior to beginn ing the procedure, universal protocol was performed to confirm the patient's identity and the planned procedure. Maximum sterile barriers including cap, mask, hand hygiene, sterile gloves, sterile gown, large sterile drape, sterile gel, sterile ultrasound probe cover, and 2% chlorhexidine for cutaneous antisepsis were used. The skin over the right basilic vein was sterilely prepped, draped, and infiltrated with lidocaine. Prior to the procedure, this target vessel was evaluated by ultrasound and an image of the patent vessel demonstrating vessel patency was recorded in the patient's electronic medical record. This vessel was then accessed using real-time ultrasound guidance. A guidewire waspassed centrally using fluoroscopic guidance. The intravascular length from the access site to the right atrium was assessed. After dilating the tract, a 45 cm, 5-[place] dual-lumen PICC was inserted through the peel-away sheath. The peel-away sheath was then removed. The catheter was flushed and sec ured in place. A sterile dressing was applied. The final fluoroscopic image demonstrates the catheter with its tip at the cavoatrial junction. No complications were identified. The catheter is ready for immediate use. When treatment is completed, this catheter can be removed at the bedside according to standard hospital protocol. Impression: Successful PICC placement using ultrasound guidance. Electronically signed by: Blaine Nash M.D. XR Chest 1 View Result Date: 06/05/2024 Narrative: EXAMINATION: XR CHEST 1 VIEW HISTORY: The patient is a 63-year-old female who has had anattempted PICC line placement. Comparison made with the previous study dated 05/29/2024. TECHNIQUE:AP portable view of the chest. FINDINGS: Cardiomegaly with aortic atherosclerosis. No failure. No active infiltrate. Impression: Cardiomegaly. Electronically signed by: Conrad Davila M.D. ECG 12 lead Result Date: 06/02/2024 Narrative: Vent Rate: 86 bpm RR Interval: 697 msec OH Interval: 0 msec QRS Duration: 157 msec QT Interval: 470 msec QTC Interval: 513 msec P-R-T [place]: 0 - 38 - 88 degrees IMPRESSION: ATRIAL FIBRILLATION WITH ABERRANT CONDUCTION OR VENTRICULAR PREMATURE COMPLEXES LEFT BUNDLE BRANCH BLOCK [120+ ms QRS DURATION, 80+ ms Q/S IN V1/V2, 85+ ms R IN I/aVL/V5/V6] ABNORMAL ECG Compared to prior EKG, ventricular pacing is no longer present Electronically Signed By: Antonio Carlos MD ECG 12 lead Result Date: 06/02/2024 Narrative: Vent Rate: 76 bpm RR Interval: 782 msec OH Interval: 0 msec QRS Duration: 158 msec QT Interval: 494 msec QTC Interval: 525 msec P-R-T [place]: 0 - 116 - 120 degrees IMPRESSION: ATRIAL FIBRILLATION WITH demand ventricular pacemaker MARKED RIGHT AXIS DEVIATION [QRS AXIS > 100] INTRAVENTRICULAR CONDUCTION DELAY [130+ ms QRS DURATION] ABNORMAL ECG Compared to prior EKG, demand ventricular pacing is new Electronically Signed By: Antonio Carlos MD CT Abdomen Pelvis W Contrast Result Date: 06/01/2024 Narrative: EXAMINATION: CT ABDOMEN PELVIS W CONTRAST DATE: 06/01/2024 1:05 PM HISTORY: Sepsis. COMPARISON: 02/28/2017. TECHNIQUE: Transaxial computed tomographic images of the abdomen and pelvis were obtained after the administration of 119 mL of Optiray 350 intravenously. Multiplanar coronal and sagittal images were reformatted. FINDINGS: Similar scarring in the left lung base unchanged since 2017. There is cardiomegaly and mosaic attenuation in the lung bases suggestive of pulmonary edema. There is a small hiatal hernia. Cholecystectomy. Diffuse hepatic steatosis. The spleen, pancreas, and adrenal glands are unremarkable. Kidneys are unremarkable. No hydroureteronephrosis. Unopacified bladder is unremarkable. Uterus and adnexal structures are unremarkable. No free fluid in the pelvis. There is diverticulosis. No evidence of diverticulitis. The small bowel is unremarkable. Mild atherosclerotic calcifications in the aorta and branch vessels. Subcutaneous tissues are unremarkable. No pathologic by size criteria lymphadenopathy. Mild bilateral sacroiliac joint arthrosis. No acute fracture. No pathologic by size criteria lymphadenopathy. Impression: 1. Mosaic attenuation in the lung bases suggestive of interstitial pulmonary edema. 2. Diffuse hepatic steatosis. 3. Small hiatal hernia. 4. Trace left pleural effusion. 5. Additional chronic or incidental findings as above. Electronically signed by: Azeem Robins II, D.O. ECG 12 lead Result Date: 06/01/2024 Narrative: Vent Rate: 102 bpm RR Interval: 584 msec OH Interval: 0 msec QRS Duration: 149 msec QT Interval: 387 msec QTC Interval: 446 msec P-R-T [place]: 0 - 115 - 66 degrees IMPRESSION: ATRIAL FIBRILLATION WITH RAPID VENTRICULAR RESPONSE WITH ABERRANT CONDUCTION OR VENTRICULAR PREMATURE COMPLEXES INDETERMINATE AXIS INTRAVENTRICULAR CONDUCTION DELAY [130+ ms QRS DURATION] ABNORMAL ECG NO CHANGE FROM PREVIOUS TRACING NOTED Electronically Signed By: Antonio Carlos MD ECG 12 lead Result Date: 06/01/2024 Narrative: Vent Rate: 83 bpm RR Interval: 716 msec OH Interval: 0 msec QRS Duration: 154 msec QT Interval: 409 msec QTC Interval: 449 msec P-R-T [place]: 0 - 123 - 189 degrees IMPRESSION: ATRIAL FIBRILLATION INTRAVENTRICULAR CONDUCTION DELAY LATERAL MYOCARDIAL INFARCTION , OF INDETERMINATE AGE Electronically Signed By: Cristino iKngsley MD, [facility] ECG 12 lead Result Date: 05/31/2024 Narrative: Vent Rate: 74 bpm RR Interval: 810 msec OH Interval: 0 msec QRS Duration: 151 msec QT Interval: 449 msec QTC Interval: 476 msec P-R-T [place]: 0 - 102 - 146 degrees IMPRESSION: VENTRICULAR PACED RHYTHM Electronically Signed By: Cristino Kingsley MD, [facility] ECG 12 lead Result Date: 05/31/2024 Narrative: Vent Rate: 76 bpm RR Interval: 785 msec OH Interval: 0 msec QRS Duration: 150 msec QT Interval: 471 msec QTC Interval: 501 msec P-R-T [place]: 0 - 80 - 97 degrees IMPRESSION: ATRIAL FIBRILLATION WITH ABERRANT CONDUCTION OR VENTRICULAR PREMATURE COMPLEXES INTRAVENTRICULAR CONDUCTION DELAY [130+ ms QRS DURATION] ABNORMAL ECG Electronically Signed By: Dr. Shiloh Muhammad [facility] ECG 12 lead Result Date: 05/30/2024 Narrative: Vent Rate: 109 bpm RR Interval: 548 msec OH Interval: 0 msec QRS Duration: 149 msec QT Interval: 398 msec QTC Interval: 462 msec P-R-T [place]: 0 - 96 - 89 degrees IMPRESSION: ATRIAL FIBRILLATION WITH RAPID VENTRICULAR RESPONSE BORDERLINE RIGHT AXIS DEVIATION [QRS AXIS > 90] INTRAVENTRICULAR CONDUCTION DELAY [130+ ms QRS DURATION] ABNORMAL ECG Unchanged compared to an EKG done earlier on May 30, 2024 Electronically Signed By: Dr. Shiloh Muhammad [facility] CT Chest WO Contrast Result Date: 05/30/2024 Narrative: EXAMINATION: Computed tomography of the chest without intravenous contrast HISTORY: Right lower lobe pulmonary artery for and body TECHNIQUE: Transaxial computed tomographic images of the chest were obtained without intravenous contrast according to the standard protocol. COMPARISON: 05/30/[address] angiography. FINDINGS: Bilateral small pleural effusions and atelectasis. There is trace pulmonary edema. Heart is enlarged. Small volume pericardial effusion. Pacemaker defibrillator leads terminate in the right atrium and right ventricle. There left hilar calcified granulomas. There is a curvilinear density originating in the right lower lobe pulmonary artery and extending distally into a lateral basilar subsegmental branch vessel. Visualized portions of the upper abdomen demonstrate changes of cholecystectomy. No suspicious osseous lesions. Impression: 1. Redemonstrated curvilinear radiopaque density extending from the proximal right lower lobe pulmonary artery into a subsegmental lateral basilar branch favors a catheter or wire fragment. 2. Findings most suggestive of heart failure with cardiomegaly, small volume pericardial effusion, and small bilateral pleural effusions and mild pulmonary edema. Electronically signed by: Abilio Post M.D. Transthoracic Echo (TTE) Complete W Doppler/CF Result Date: 05/30/2024 Narrative: [place] [address] Echocardiogram Report Patient Name: LEI RODRIGUEZ V : 1960 Study Date: 05/30/2024 7:47:08 AM Gender: F Tech: GUILHERME Location: [id number] Ref Provider: TY MCFARLAND Height(Cm): 165 BSA: 2.43 Weight(Kg): 128.7 Heart Rate: 94 BP: 135/84 Quality:Good Order Provider: TY MCFARLAND PROCEDURES: Echocardiographic Report: Transthoracic echocardiogram with complete 2D, M-Mode, color Doppler examination and contrast. INDICATIONS: Endocarditis. Measurements: 2D/M Mode Doppler Measurement Value Normal Range Measurement Value Normal Range EF Teich 2D 21.6 [ 54.0 - 74.0 ] percent MARIANA Vmax 3.09 cm2 EF Mod 4C 33.1 percent AV Mean PG 3 mmHg [id number] 5.71 [ 3.80 - 5.20 ] cm AV Peak Chadd 1.08 [ 1.00 - 1.70 ] m/s LVIDs 2D 5.14 [ 2.20 - 3.50 ] cm AVVTI 19.35 cm LVPWd 2D 0.98 [ 0.60 [...] MV Mean PG 2 mmHg MV PHT 54[ 20 - 100 ] msec MVA PHT 4.11 cm2 MV Decel Time 169 [ 104 - 258 ] msec PV Peak Chadd 1.14 [ 0.40 - 0.80 ] m/s TR Peak Chadd 2.94 [ 1.00 - 2.80 ] m/s TR Peak PG 35 mmHg RVSP 38.00 [ 10.00 - 36.00 ] mmHgE` 0.05 m/s E/E` 19.29 Measurement Value Normal [...] Right Ventricle: Normal right ventricular systolic function. Pac emaker noted. Right Atrium: There is mild enlargement [...] peak RVSP is 42 mmHg. Mild to m oderate tricuspid regurgitation. Pericardium: Trivial pericardial effusion. Aorta: Mild aortic rootcalcification. IVC: Dilated IVC without respiratory collapse consistent [...] MELISSA 2024-05-30 09:18:05 CDT CC: CC: CC: XR Chest 1 View Result Date: 05/30/2024 Narrative: EXAMINATION: XR CHEST 1 VIEW History: Shortness of breath Impression: Single view chest exam similar for interpretation with comparison to prior from 03/07/2017. Correlation made with CT from the same day There are diffuse interstitial and airspace opacitiescompatible with moderate pulmonary edema. Likely small effusions. Heart is enlarged. There is a curvilinear density projecting over the right lower lung which corresponds to a catheter or wire in theright lower lobe pulmonary arteries when correlated with the CT examination. This finding is not present on the prior 2017 examination. The presence of this finding was discussed by Dr. Abernathy with Dr. Hollis and documented by Dr. Hollis in the medical record on 05/30/2024 at 457. Electronically signed by: Abilio Post M.D. ECG 12 lead Result Date: 05/30/2024 Narrative: Vent Rate: 86 bpm RR Interval: 697 msec OH Interval: 0 msec QRS Duration: 145 msec QT Interval: 438 msec QTC Interval: 481 msec P-R-T [place]: 0 - 101 - 95 degrees IMPRESSION: ATRIAL FIBRILLATION RIGHT AXIS DEVIATION [QRS AXIS > 100] INTRAVENTRICULAR CONDUCTION DELAY [130+ ms QRS DURATION] ABNORMAL ECG Unchanged compared to 05/29/2021 Electronically Signed By: Dr. Shiloh Muhammad [facility] CT Chest PE (CTA) W Contrast Result Date: 05/30/2024 Narrative: EXAMINATION: CT CHEST PE (CTA) W CONTRAST HISTORY: Chest pain ORDER DATE: 05/30/2024 3:20AM TECHNIQUE: CT chest images were acquired using a chest angiographic protocol with 3-D imaging optimized for PE is obtained [id number] mL of Optiray 350 IV. 2D Coronal and sagittal reformats were obtained. 3-D rendering (not supervised by radiologist) MIP and/or 3-D reconstructed images were created by the technologist. FINDINGS: Dual lead pacer device implanted in the left chest wall with leads in the right atrium and right ventricle. Pulmonary arteries: Dilated main pulmonary artery measuring 4.9 cm. Some of the segmental branches are not well assessed for exclusion of subtle emboli due to excessive motion. Otherwise centrally no pulmonary artery emboli. A dislodged catheter is visualized in the distal right pulmonary artery extending into the lobar and segmental right lower lobe pulmonary artery branch, image [id number]/coronal series 9. Aorta: Unremarkable. No aortic aneurysm. No aortic dissection. Lungs: Diffuse multilobar septal thickening, peribronchial thickening and increasedground-glass alveolar airspace opacity of the lung parenchyma representing findings of pulmonary interstitial edema. Pleural spaces: Mild left and trace to mild right pleural effusions. Heart: Four-chamber enlarged heart. Reflux of contrast within the hepatic veins and IVC may suggest right heart failure. Trace to mild pericardial effusion present. Lymph nodes: Multiple calcified mediastinal and hilar lymph nodes which suggest prior exposure to granulomatous disease. No lymphadenopathy. Diaphragm: There is a small hiatal hernia. Liver: Coarsened nodular hepatic parenchyma may suggest underlying chronic hepatocellular disease. Liver is prominent in size measuring 17.5 cm. Gallbladder and biliary ducts: Cholecystectomy. Bones/joints: No acute fracture. Soft tissues: Unremarkable. Impression: 1. Motion degraded evaluation of the pulmonary arteries. Some of the segmental branchesare not well assessed for exclusion of subtle emboli. Otherwise centrally no pulmonary artery emboli. 2. Pulmonary arterial hypertension and dislodged the catheter visualized in the distal right pulmonary artery and right lower lobe lobar and segmental pulmonary artery branch. 3. CHF, pulmonary edema and small bilateral pleural effusions. 4. Possible congestive cirrhosis. Correlate with LFTs. 5. Additional findings as described above. Stat report by [facility] . Electronically signed by: Andrea Abernathy M.D. CT Cervical Spine WO Contrast Result Date: 05/30/2024 Narrative: EXAMINATION: CT CERVICAL SPINE WO CONTRAST HISTORY: Neck pain ORDER DATE: 05/29/2024 10:55 PM TECHNIQUE: Multiple helical axial images of the cervical spine were obtained without the administration of contrast. Coronal and sagittal reformatted images were included. FINDINGS: Bones: No acute fracture. Chronic mild C6 loss of vertebral body height present. Normal alignment. Mild right C3-C4 facet arthrosis. C3-C4 disc narrowing and partially calcified bulging disc contributing to [id number] central spinal stenosis. Disc osteophyte complex also contributing to [id number] central spinal stenosis at C4-C5 level. No significant disc bulge or herniation. No severe spinal canal stenosis. Uncovertebral joint hypertrophy contributing to multilevel bilateral neural foraminal stenosis. Lungs: Lung apices are normal. Soft tissues: Unremarkable. Impression: No acute cervical spine injury. Stat report by [facility] Stat report by [facility] Electronically signed by: Andrea Abernathy M.D. CT Head WO Contrast Result Date: 05/30/2024 Narrative: EXAMINATION: CT head without contrast HISTORY: Headache, new or worsening (Age >= 50y) TECHNIQUE: Noncontrast CT of the brain was performed with images acquired from skull base to vertex. COMPARISON: None available. FINDINGS: Brain: Global volume loss and cortical dilatation present. No hemorrhage. Mild chronic microvascular ischemic changes of the periventricular white matter. No mass effect. No edema. Cerebral ventricles: No ventriculomegaly. Paranasal sinuses: Visualized sinuses are unremarkable. No fluid levels. Mastoid air cells: Visualized mastoid air cells are well aerated. Bones: Unremarkable. No acute fracture. Soft tissues: Unremarkable. Impression: No acute intracranial findings. Stat report by [facility] Electronically signed by: Andrea Abernathy M.D. ECG 12 lead Result Date: 05/30/2024 Narrative: Vent Rate: 93 bpm RR Interval: 645 msec [place] Interval: 0 msec QRS Duration: 97 msec QT Interval: 197 msec QTC Interval: 247 msec P-R-T [place]: 0 - 118 - 0 degrees IMPRESSION: ATRIAL FIBRILLATION WITH ABERRANT CONDUCTION OR VENTRICULAR PREMATURE COMPLEXES LOW QRS VOLTAGE [QRS DEFLECTION < 0.5/1.0 mV IN LIMB/CHEST LEADS] SEPTAL MYOCARDIAL INFARCTION , PROBABLY OLD [40+ ms Q WAVE IN V1/V2]Nonspecific IVCD LATERAL MYOCARDIAL INFARCTION , OF INDETERMINATE AGE [40+ ms Q WAVE AND/OR ST/T ABNORMALITY IN I/aVL/V5/V6] ABNORMAL ECG Electronically Signed By: Antonio Carlos MD Assessment/Plan Principal Problem: Ventricular tachycardia (HCC) Active Problems: Controlled type 2 diabetes mellitus with chronic kidney disease, with long-term current use of insulin (HCC) Hypothyroidism Hypotension due to drugs Chronic diastolic congestive heart failure (CMS/HCC) (HCC) Endocarditis Urinary frequency Gastroesophageal reflux disease without esophagitis Paroxysmal atrial fibrillation (CMS/HCC) (HCC) Major depressive disorder CKD (chronic kidney disease) CKD ? Hypokalemia. Recent endocarditis. Recurrent ICD firing. A fib. DM/HTN. Hx of CHF. Hypothyroidism. PLAN Renal fn is stable, ckd/gerald ocasio not indicated. Hold lasix, keep K over 4, Mg over 2. Cards ocasio, ICD interrogation, Hold Tikosyn/BB. Daily RFP. Will d/w cardiology. Repeat CHANCE. Seth Flores MD 8:26 PM 06/11/2024 * Seth Flores MD - 06/11/2024 5:05 PM CDT Patient seen and examined. Orders placed. Full note to follow. Thank you for the consult. I can be reached at [phone] with any concerns. Seth Flores MD * Pastora Flores MD - 06/11/2024 9:13 AM CDTAssociated Order(s): IP CONSULT TO CARDIOLOGY Cardiology Consult Note-[facility] Date of Consult: 06/11/2024 Patient's Primary Care Physician: Oswaldo Serrano MD Physician Requesting Consult: Notinfile Unknown Reason for Consultation: Name: Lei Rodriguez Age: 63 y.o. Race: Sex: female Chief Complaint/History of Present Illness Patient was admitted with PMHx of atrial fibrillation, CHF, DM, HTN, JOSE, and obesity who presentedto the hospital from her NH after a syncopal episode. Patient is a poor historian and details were obtained from chart review. According tot he chart patient was at her NH with her daughter and she began having nausea and vomiting. She also c/o headache at that time. Patient admits she did feel dizzy. She then fell forward and hit her head. EMS was called and patient was transferred to [facility]. Per [place] records it was reported that patient ICD fired for V-tach. Patient was transferred back to [facility] for further evaluation and management. Past Medical History: Diagnosis Date A-fib ([facility]) (HCC) CHF (congestive heart failure) ([facility]) ([facility]) Diabetes mellitus ([facility]) GERD (gastroesophageal reflux disease) Hypertension [...] not drink Frequency of Binge Drinking: Never Medications Prior to Admission Medication Sig Dispense Refill Last Dose albuterol HFA (PROVENTIL HFA,VENTOLIN HFA,PROAIR HFA) 90 mcg/actuation inhaler Inhale 2 puffs every6 (six) hours as needed for wheezing BASAGLAR 100 unit/mL (3 mL) pen for injection Inject 18 Units under the skin daily carvediloL (COREG) 25 mg tablet Take 1 tablet (25 mg total) by mouth 2 (two) times a day with meals ceFAZolin (ANCEF) 2,000 mg/100 mL IVPB Infuse 100 mL (2 g total) into a venous catheter every 8 (eight) hours for 14 days 4200 mL 0 cholecalciferol (VITAMIN D-3) 5,000 unit tablet Take 1 tablet (5,000 Units total) by mouth daily dilTIAZem (CARDIZEM) 30 mg tablet Take 1 tablet (30 mg total) by mouth 2 (two) times a day docusate sodium (COLACE) 100 mg capsule Take 1 capsule (100 mg total) by mouth 2 (two) times a day dofetilide (TIKOSYN) 500 mcg capsule Take 1 capsule (500 mcg total) by mouth 2 (two) times a day for 711 doses 60 capsule 11 Entresto 24-26 mg tablet Take 1 tablet by [...] tablet (40 mg total) by mouth daily Gemtesa 75 mg tablet Take 1 tablet by mouth daily HYDROcodone-acetaminophen (NORCO) 5-325 mg per tablet Take 1 tablet by mouth 4 (four) times a day as needed for pain for up to 7 days 15 tablet 0 levothyroxine (SYNTHROID) 75 mcg tablet Take 1 tablet (75 mcg total) by mouth every morning midodrine (PROAMATINE) 5 mg tablet Take 1 tablet (5 mg total) by mouth 3 (three) times a day beforemeals 90 tablet 0 multivit fbgvthpy-xnvz-YT-calcium (THERA-M) 9 mg iron-400 mcg tablet Take 1 tablet by mouth daily nortriptyline (PAMELOR) 10 mg capsule Take 1 capsule (10 mg total) by mouth daily NovoLOG 100 unit/mL (3 mL) pen for injection Inject 10 Units under the skin 3 (three) times a day with meals Plus slide omeprazole (PriLOSEC) 20 mg capsule Take 1 capsule (20 mg total) by mouth daily potassium chloride ER 20 mEq CR tablet Take 1 tablet (20 mEq total) by mouth daily Xarelto 20 mg tablet Take 1 tablet (20 mg total) by mouth daily with dinner Allergies Allergen Reactions Sulfa (Sulfonamide Antibiotics) MEDICATIONS FOR CURRENT ENCOUNTER: SCHEDULED MEDICATIONS: Scheduled Medications Medication Dose Route Frequency carvediloL (COREG) tablet 25 mg 25 mg oral BID with meals (bkfst, dinner) ceFAZolin (ANCEF) 2,000 mg/100 mL in dextrose (premix) 2 g 2 g intravenous Q8H GALINA cholecalciferol (VITAMIN D-3) tablet 5,000 Units 5,000 Units oral Daily dilTIAZem (CARDIZEM) tablet 30 mg 30 mg oral TID docusate sodium (COLACE) capsule 100 mg 100 mg oral BID dofetilide (TIKOSYN) capsule 500 mcg 500 mcg oral BID escitalopram (LEXAPRO) tablet 10 mg 10 mg oral Daily ferrous sulfate delayed release tablet 65 mg of elemental iron 65 mg of elemental iron oral Daily with breakfast furosemide (LASIX) tablet 40 mg 40 mg oral Daily insulin glargine (LANTUS, SEMGLEE) 100 unit/mL injection 17 Units 0.15 Units/kg subcutaneous Nightly insulin lispro (HumaLOG, ADMELOG) 100 unit/mL injection 0-4 Units 0-4 Units subcutaneous Nightly insulin lispro (HumaLOG, ADMELOG) 100 unit/mL injection 0-5 Units 0-5 Units subcutaneous TID with meals insulin lispro (HumaLOG, ADMELOG) 100 unit/mL injection 6 Units 0.05 Units/kg subcutaneous TID withmeals levothyroxine (SYNTHROID) tablet 75 mcg 75 mcg oral QAM midodrine (PROAMATINE) tablet 5 mg 5 mg oral TID AC mirabegron ER (MYRBETRIQ) extended release tablet 25 mg 25 mg oral Daily multivit qbwmowjg-haql-CU-calcium (THERA-M) tablet 1 tablet 1 tablet oral Daily nortriptyline (PAMELOR) capsule 10 mg 10 mg oral Daily pantoprazole DR (PROTONIX) extended release tablet 40 mg 40 mg oral Daily [START ON 06/12/2024] potassium chloride ER (KLOR-CON) extended release tablet 40 mEq 40 mEq oral Daily rivaroxaban (XARELTO) tablet 20 mg 20 mg oral Daily with dinner sacubitriL-valsartan (ENTRESTO) 24-26 mg tablet 1 tablet 1 tablet oral BID CONTINUOUS MEDICATIONS: Continuous Medications Medication Dose Last Rate PRN MEDICATIONS: PRN Medications Medication Dose Route Frequency Last Admin albuterol HFA (PROVENTIL HFA,VENTOLIN HFA,PROAIR HFA) 90 mcg/actuation inhaler 2 puff 2 puff inhalation Q6H PRN (RT) dextrose oral liquid liquid 15 g 15 g oral Q15 Min PRN Or dextrose (D10W) 10% bolus 250 mL 250 mL intravenous Q15 Min PRN fluticasone propionate (FLONASE) 50 mcg/actuation nasal spray 1 spray 1 spray each nostril Daily PRN glucagon injection 1 mg 1 mg intramuscular Q30 Min PRN HYDROcodone-acetaminophen (NORCO) 5-325 mg per tablet 1 tablet 1 tablet oral QID PRN Review of Systems 11 point system review was obtained all pertinent positives and negatives have been listed in the HPI. Exam Vitals: 06/11/24 0704 06/11/24 0705 06/11/24 0727 06/11/24 0730 BP: 105/56 124/70 Pulse: 91 91 87 Resp: 23 22 Temp: 37 ??C (98.6 ??F) TempSrc: Axillary SpO2: 91% 91% Weight: Height: No intake or output data in the 24 hours ending 06/11/24 0914 Physical Exam Vitals and nursing note reviewed. Constitutional: Appearance: Normal appearance. HENT: Head: Normocephalic. Comments: Laceration to forehead, bandage in place Cardiovascular: Rate and Rhythm: Normal rate. Rhythm irregular. Heart sounds: Normal heart sounds. Pulmonary: Effort: Pulmonary effort is normal. Breath sounds: Normal breath sounds. Abdominal: General: Bowel sounds are normal. Palpations: Abdomen is soft. Skin: General: Skin is warm and dry. Neurological: Mental Status: She is alert. Mental status is at baseline. Psychiatric: Mood and Affect: Mood normal. Data Recent Labs Lab Units 06/11/24 0817 06/11/24 0107 06/11/24 0007 06/08/24 0645 06/08/24 0430 06/07/24 0613 06/07/24 0400 06/06/24 0725 06/06/24 0359 SODIUM mmol/L -- 141 -- -- 136 -- 131* -- 133* POTASSIUM PLASMA mmol/L -- 3.2* -- -- 3.7 -- 4.2 -- 4.0 CHLORIDE mmol/L -- 102 -- -- 97 -- 97 -- 98 CO2 mmol/L -- 28 -- -- 30 -- 25 -- 26 ANIONGAP mmol/L -- 11 -- -- 9 -- 9 -- 9 GLUCOSE mg/dL -- 100 -- -- 175 -- 133 -- 241* POC GLUCOSE MONITOR mg/dL 152 -- 111 < > -- < > -- < > -- BUN SERUM mg/dL -- 15 -- -- 17 -- 17 -- 20 CREATININE mg/dL -- 0.63 -- -- 0.70 -- 0.66 -- 0.68 CALCIUM mg/dL -- 9.0 -- -- 9.0 -- 8.9 -- 8.8 ALBUMIN g/dL -- -- -- -- 3.2* -- 2.8* -- 2.9* ALK PHOS Units/L -- -- -- -- 217* -- 219* -- 238* ALT Units/L -- -- -- -- 5* -- <5* -- <5* AST Units/L -- -- -- -- 21 -- 19 -- 16 BILIRUBIN TOTAL mg/dL -- -- -- -- 0.5 -- 0.5 -- 0.4 < > = values in this interval not displayed. Recent Labs Lab Units 06/11/24 0107 06/08/24 0430 06/07/24 0400 WBC K/cumm 6.0 6.3 5.5 6.1 HEMOGLOBIN g/dL 11.5* 11.6* 11.9 11.8* HEMATOCRIT % 35.8 35.8 37.0 36.7 PLATELETS K/cumm 314 286 295 299 Recent Labs Lab Units 06/05/24 0755 PROTIME (PT) sec 20.9* Recent Labs Lab Units 06/05/24 0755 INR 1.91* Assessment and Plan Syncope. Most likely secondary to V-fib Troponin was 0.018 and 0.030 at OSH thus in normal range. CT head with no acute infarct. CXR with cardiomegaly and no acute cardiopulmonary process. We will stop cardizem to avoid hypotension. Will stop tikosyn as concern for QTC prolongation that may have contributed to V-fib. Will continue tele monitor for any further arrhythmia V-fib. With 5 episodes and appropriate ICD firing. Her K is 3.2 today and will replete. Mag is 2. Will hold tikosyn as recently initiated and may have contributed. She has had previous LHC that was negative for CAD. Given normal troponin no need for IP cath. Questionable endocarditis. no vegetations seen on CHANCE last admission. she was to continue therapy per Infectious Disease until 06-09-24 Atrial fibrillation. Persistent. She had CHANCE 05/31/24 that showed left atrial appendage clot therefore no CV was attempted. She was placed on tikosyn 500 mcg BID with plans to CV at later date. On xarelto for AC. Check TSH and replete lytes. Stop tikosyn and hold CCB. Dislodged catheter. in pulmonary artery noted on CT chest and CHANCE last admission. Chronic systolic congestive heart failure. clinically compensated at this time. EF 30% by echo lastadmit. Continue BB and Entresto. Hold lasix at this time. Diabetes type 2 -per hospitalist Hypothyroid -treated Thank you for allowing us to participate in the care of this patient. We will continue to follow. If you have any questions, please don't hesitate to call. Irma Morris NP, MSN, [facility] 06/11/2024 9:14 AM Pt seen and examined - Will d/c Tikosyn , cardizem Monitor pt for now Pastora Flores MD [facility] CC: documented in this encounter Nursing Notes * Tila Toribio RN - 06/21/2024 4:10 PM CDT Pt was taken in wheelchair with her sister walking down too. LABORATORY SPECIALIST has pulled her down with no issues. Pt voided before she left and has no problems. PICC line taken out safe with no bleeding. * David Dunlap RN - 06/21/2024 9:41 AM CDT SWAT assessment deferred d/t patient refusing to have a male RN assess her. Floor RN, Tila, notified and agreed to perform assessment, she agreed to notify wound dept. With any concerning issues. * Catalina Pereira RN - 06/15/2024 10:27 PM CDT Arrived to floor transported by staff x 3. Sitter at bedside. Patient alert/oriented x 4 and pleasant. Denies pain or discomfort. Vss. All needs addressed. Call light in reach. Bed in low locked positioned with alarms in place. * Cora Valdes RN - 06/13/2024 6:37 AM CDT Patient refused all PO meds overnight. Patient verbally abusive to RN and sitter. Patient refusing pillows and pressure reduction boots. Patient refused to participate in assessment questions. Patient wearing depends from home which is patient preference. Patient turns self in bed. Plan to place waffle mattress on bed when patient can follow directions and is no longer aggressive. electro mechanical technologist notified. * David Dunlap RN - 06/12/2024 1:36 PM CDT Impression: Patient evaluated by SWAT RN due to increase risk for impaired skin integrity. Anthony Score: 18. Contributing history includes: V-Tach, CHF, DM, GERD, CKD, SOB. Skin appears free from PrIat this time. Plan: Continue pressure prevention orders- Q2 turns, waffle mattress, absorbant pads, and prevalon boots. Goal: Pressure relief. Optimize wound healing. Moisture management. documented in this encounter Miscellaneous Notes * Plan of Care - Tila Toribio RN - 06/21/2024 3:46 PM CDT Goals: Clinical Goals for the Shift: Sister stated her sister needed a bandaid and cream on her right upper foot. NO bleeding. Skin scratched Usp Patient Centered Goal for Treatment: home Summary: Problem: Discharge Planning Goal: Understanding discharge needs will improve 06/21/2024 1546 by Tila Toribio RN Outcome: Adequate for Discharge 06/21/2024 1028 by Tila Toribio RN Outcome: Adequate for Discharge Flowsheets (Taken 06/21/2024 1028) Understanding of discharge needs will improve: Discuss information regarding discharge instructions Problem: Fall Risk Goal: Ability to state ways to decrease the risk of falls will improve 06/21/2024 1546 by Tila Toribio RN Outcome: Adequate for Discharge 06/21/2024 1028 by Tila Toribio RN Outcome: Progressing Flowsheets (Taken 06/21/2024 1028) Ability to state ways to decrease the risk of falls will improve: Teach fall prevention measures Goal: Will remain free from falls 06/21/2024 1546 by Tila Toribio RN Outcome: Adequate for Discharge 06/21/2024 1028 by Tila Toribio RN Outcome: Progressing Flowsheets (Taken 06/21/2024 1028) Will remain free from falls: Assess risk factors for falls Goal: Will remain free from injury from falls Outcome: Adequate for Discharge Problem: Lack of Knowledge Goal: Ability to develop a pain control plan will improve Outcome: Adequate for Discharge Problem: Medication Goal: Satisfaction with pain management medication regimen will improve 06/21/2024 1546 by Tila Toribio RN Outcome: Adequate for Discharge 06/21/2024 1028 by Tila Toribio RN Outcome: Progressing Flowsheets (Taken 06/21/2024 1028) Satisfaction with pain management medication regimen will improve: Assess satisfaction with pain management regimen Problem: Sensory Goal: Ability to identify factors that increase pain levels will improve while working to decrease the patient's pain levels Outcome: Adequate for Discharge Problem: Coping Goal: Ability to cope will improve Outcome: Adequate for Discharge Problem: Health Behavior Goal: Identification of resources available to assist in meeting health care needs will improve Outcome: Adequate for Discharge Problem: Skin Integrity Impairment Risk Goal: Mobility will improve 06/21/2024 1546 by Tila Toribio RN Outcome: Adequate for Discharge 06/21/2024 1028 by Tila Toribio RN Outcome: Progressing Flowsheets (Taken 06/21/2024 1028) Mobility will improve: Encourage mobilization to extent of ability, assist with range of motion as needed Goal: Understanding of ways to prevent future skin breakdown will improve Outcome: Adequate for Discharge Goal: Nutritional status will improve Outcome: Adequate for Discharge Goal: Risk for impaired skin integrity will decrease Outcome: Adequate for Discharge Problem: Restraint for Interference with Medical Safety Goal: Knowledge of restraints will improve Outcome: Adequate for Discharge Goal: Remains free from injury from restraints Outcome: Adequate for Discharge Goal: Free from restraint(s) Outcome: Adequate for Discharge * Plan of Care - Tila Toribio RN - 06/21/2024 10:00 AM CDT Goals: Clinical Goals for the Shift: VS, safety, falls, behavior Usp Patient Centered Goal for Treatment: home Summary: Problem: Fall Risk Goal: Ability to state ways to decrease the risk of falls will improve Outcome: Progressing Flowsheets (Taken 06/21/2024 1028) Ability to state ways to decrease the risk of falls will improve: Teach fall prevention measures Goal: Will remain free from falls Outcome: Progressing Flowsheets (Taken 06/21/2024 1028) Will remain free from falls: Assess risk factors for falls Problem: Medication Goal: Satisfaction with pain management medication regimen will improve Outcome: Progressing Flowsheets (Taken 06/21/2024 1028) Satisfaction with pain management medication regimen will improve: Assess satisfaction with pain management regimen Problem: Skin Integrity Impairment Risk Goal: Mobility will improve Outcome: Progressing Flowsheets (Taken 06/21/2024 1028) Mobility will improve: Encourage mobilization to extent of ability, assist with range of motion as needed * Plan of Care - Maria Luisa Logan RN - 06/20/2024 11:51 PM CDT Problem: Discharge Planning Goal: Understanding discharge needs will improve Outcome: Not Progressing Problem: Fall Risk Goal: Ability to state ways to decrease the risk of falls will improve Outcome: Ongoing Goal: Will remain free from falls Outcome: Progressing Goal: Will remain free from injury from falls Outcome: Progressing Problem: Skin Integrity Impairment Risk Goal: Mobility will improve Outcome: Progressing Goal: Nutritional status will improve Outcome: Progressing Goal: Risk for impaired skin integrity will decrease Outcome: Progressing Problem: Coping Goal: Ability to cope will improve Outcome: Not Progressing Problem: Health Behavior Goal: Identification of resources available to assist in meeting health care needs will improve Outcome: Not Progressing Goals: Clinical Goals for the Shift: VS, safety, falls, behavior Tower Attendant Patient Centered Goal for Treatment: home Summary: Monitor VS. FSBS, safety interventions, elopement risks/behaviors. Continue 1:1 observation; encourage expression of needs/concerns and educate- reorientate pt PRN; encourage compliance with POC * Plan of Care - Jamee Mendez RN - 06/20/2024 9:52 AM CDT CM met with pt & Family to discuss DC planning. Pt will complete her IV abx on 06/22 & then will return home. Pt/Family does not want SNF. May be open to out patient PT/OT. CM will follow for DC planning needs. 06/20/24 0952 Communications Patient choice (Home Health/Hospice) list given to patient/artists' booking representative? No [facility] Facility list given to patient/artists' booking representative? Yes Fiduciary Responsibility Patient/Designated decision maker was informed of [facility] fiduciary relationship as necessary Dyan Mendez RN-[facility] Case Management [phone] * Plan of Care - Raghavendra Vaz - 06/19/2024 1:23 PM CDT Problem: Discharge Planning Goal: Understanding discharge needs will improve Outcome: Progressing Problem: Fall Risk [...] skin integrity will decrease Outcome: Progressing Problem: Restraint for Interference with Medical Safety Goal: Knowledge of restraints will improve Outcome: Progressing Goal: Remains free from injury from restraints Outcome: Progressing Goal: Free from restraint(s) Outcome: Progressing Goals: Clinical Goals for the Shift: safety,vs, fall, increase acitivity, abx Tower Attendant Patient Centered Goal for Treatment: discharge home Summary: Patient's mood is a bit better today. She was calm and cooperative. She had a bowel movement. Patient's still on antibiotic until 06/22/24. * Plan of Frank - Raghavendra Vaz - 06/18/2024 2:32 PM CDT Goals: Clinical Goals for the Shift: safety,vs, fall, increase acitivity, abx Tower Attendant Patient Centered Goal for Treatment: discharge home Summary: Patient was seen crying and verbalized multiple times that she wanted to go home. Removed peripheral IV on the left hand. Stable vital signs. Problem: Fall Risk Goal: Ability to state ways to decrease the risk of falls will improve Outcome: Progressing Goal: Will remain free from falls Outcome: Progressing Goal: Will remain free from injury from falls Outcome: Progressing Problem: Discharge Planning Goal: Understanding discharge needs will improve Outcome: Progressing Problem: Skin Integrity Impairment Risk Goal: Mobility will improve Outcome: Progressing Goal: Understanding of ways to prevent future skin breakdown will improve Outcome: Progressing Goal: Nutritional status will improve Outcome: Progressing Goal: Risk for impaired skin integrity will decrease Outcome: Progressing * Plan of Frank - Karime Krishna RN - 06/18/2024 7:05 AM CDT Report sent to 8th floor for patient transfer to room 805. Karime Krishna RNsenior support engineer [phone] * Plan of Care - Carolina Redmond RN - 06/17/2024 9:30 PM CDT Ability to state ways to decrease the risk of falls will improv Nutritional status will improve Knowledge of restraints will improve * Plan of Care - Veena Austin RN - 06/17/2024 3:43 PM CDT Goals: Clinical Goals for the Shift: safety,vs, fall, increase acitivity, abx Usp Patient Centered Goal for Treatment: discharge home Summary: Problem: Coping Goal: Ability to cope will improve Outcome: Not Progressing Problem: Discharge Planning Goal: Understanding discharge needs will improve Outcome: Progressing Problem: Fall Risk Goal: Will remain free from falls Outcome: Progressing Problem: Skin Integrity Impairment Risk Goal: Nutritional status will improve Outcome: Progressing Goal: Risk for impaired skin integrity will decrease Outcome: Progressing * Plan of Care - Carolina Redmond RN - 06/17/2024 6:00 AM CDT Understanding discharge needs will improve Ability to state ways to decrease the risk of falls will improve * Plan of Care - Dannielle Hill RN - 06/16/2024 11:15 AM CDT Goals: Clinical Goals for the Shift: (vss, comfort, safety) Usp Patient Centered Goal for Treatment: Return home Summary: Problem: Discharge Planning Goal: Understanding discharge needs will improve Outcome: Not Progressing Problem: Fall Risk Goal: Ability to state ways to decrease the risk of falls will improve Outcome: Not Progressing Goal: Will remain free from falls Outcome: Not Progressing Goal: Will remain free from injury from falls Outcome: Not Progressing Problem: Lack of Knowledge Goal: Ability to develop a pain control plan will improve Outcome: Not Progressing Problem: Medication Goal: Satisfaction with pain management medication regimen will improve Outcome: Not Progressing Problem: Sensory Goal: Ability to identify factors that increase pain levels will improve while working to decrease the patient's pain levels Outcome: Not Progressing Problem: Coping Goal: Ability to cope will improve Outcome: Not Progressing Problem: Health Behavior Goal: Identification of resources available to assist in meeting health care needs will improve Outcome: Not Progressing Problem: Skin Integrity Impairment Risk Goal: Mobility will improve Outcome: Not Progressing Goal: Understanding of ways to prevent future skin breakdown will improve Outcome: Not Progressing Goal: Nutritional status will improve Outcome: Not Progressing Goal: Risk for impaired skin integrity will decrease Outcome: Not Progressing Problem: Restraint for Interference with Medical Safety Goal: Knowledge of restraints will improve Outcome: Not Progressing Goal: Remains free from injury from restraints Outcome: Not Progressing Goal: Free from restraint(s) Outcome: Not Progressing * Plan of Care - Eve Alvarado RN - 06/15/2024 10:26 PM CDT Goals: Clinical Goals for the Shift: (vss, comfort, safety) Usp Patient Centered Goal for Treatment: Return home Summary: . Problem: Discharge Planning Goal: Understanding discharge needs will improve Outcome: Progressing Problem: Fall Risk Goal: Ability to state ways to decrease the risk of falls will improve Outcome: Progressing Goal: Will remain free from falls Outcome: Progressing Goal: Will remain free from injury from falls Outcome: Progressing Problem: Lack of Knowledge Goal: [...] care needs will improve Outcome: Progressing Problem: Skin Integrity Impairment Risk Goal: Mobility will improve Outcome: Progressing Goal: Understanding of ways to prevent future skin breakdown will improve Outcome: Progressing Goal: Nutritional status will improve Outcome: Progressing Goal: Risk for impaired skin integrity will decrease Outcome: Progressing Problem: Restraint for Interference with Medical Safety Goal: Knowledge of restraints will improve Outcome: Progressing Goal: Remains free from injury from restraints Outcome: Progressing Goal: Free from restraint(s) Outcome: Progressing * Plan of Care - Poncho Beckett RN - 06/15/2024 6:56 PM CDT Goals: Clinical Goals for the Shift: vss,comfort,saftey Usp Patient Centered Goal for Treatment: Return home Summary: Problem: Discharge Planning Goal: Understanding discharge needs will improve Outcome: Progressing Problem: Fall Risk Goal: Ability to state ways to decrease the risk of falls will improve Outcome: Progressing Goal: Will remain free from falls Outcome: Progressing Goal: Will remain free from injury from falls Outcome: Progressing Problem: Lack of Knowledge Goal: [...] care needs will improve Outcome: Progressing Problem: Skin Integrity Impairment Risk Goal: Mobility will improve Outcome: Progressing Goal: Understanding of ways to prevent future skin breakdown will improve Outcome: Progressing Goal: Nutritional status will improve Outcome: Progressing Goal: Risk for impaired skin integrity will decrease Outcome: Progressing Problem: Restraint for Interference with Medical Safety Goal: Knowledge of restraints will improve Outcome: Progressing Goal: Remains free from injury from restraints Outcome: Progressing Goal: Free from restraint(s) Outcome: Progressing * Consults, Maricruz Amezcua MSW - 06/15/2024 11:20 AM CDT [facility] Follow-Up Note Date: 06/15/24 Patient Name: Lei Rodriguez Medical Record: [id number] Date of : 1960 Assessment start time: 1125 Assessment end time: 113 Assessment Briefly, Lei Rodriguez is a 63 y.o. White female who presented initially to the hospital with nausea, vomiting, and syncope. [facility] reviewed chart. Patient has a past psychiatric history of anxiety and mood disorder. [facility] messaged with patient's nurse, Eve Trammell, to discuss the patient's current status. Nurse reports She is AOx3, eating, sleeping & communicating appropriately. She pa rticipated in therapy. Per patient, appetite is normal, sleep is good. Patient has been cooperative with care. Patient has not exhibited any self-harm behaviors. Nurse reports that the patient has not been exhibiting any behaviors that interfere with the staff's ability to provide care. Patient has been compliant with their medication(s). Patient has not required PRN medication to address behavior. Patient was seen by Psychiatrist, Dr. Handy on 06/13 for evaluation. Recommendations were continue psych 1:1, no med recs, no need for inpt psych. Current psychotropic medications: None No new psychotropic medication has been started on patient. [facility] met with patient today for follow-up. Patient is Alert and oriented x 3 . Patient reports she has been doing well. Patient currently denies suicidal thoughts. Patient denies homicidal thoughts. Lei rates their depression as a 0 on a scale of 0/10, with 10 being the highest. Lei ratestheir anxiety as a 0 on a scale of 0/10, with 10 being the highest. Patient denies any paranoia, hallucinations or delusions. No delusions voiced/observed. Patient does not appear to be responding to internal stimuli. Patient given opportunity to ask questions. Provided support. Mental Status Exam Appearance/hygiene: appropriate and wearing hospital gown Behavior: cooperative Psychomotor: normal/no abnormality Speech: of normal rate and rhythm Thought process: coherent Thought content: no suicidal ideations, no homicidal ideations, and no delusions Perception: no hallucinations. Patient does not appear to be responding to internal stimuli. Affect: normal and calm which is congruent with their overall presentation. Mood: Pt states mood is: good Insight: good Judgement: good Recommendations and Plan of Care Recommendations: Based on the clinical presentation of no SI/HI/psychosis, no danger to self or others, patient doesnot meet criteria for inpatient psychiatric admission. Patient acknowledges her understanding of the plan of care without any questions at this time. There are no affidavits related to this encounter to review for patient at [facility]. Plan of Care: ~ No further intervention needed from [facility] at this time, we will sign off on patient. Please contact [facility] for any further needs. [phone]. What staff can do proactively: For Dementia/Major Cognitive Disorder/Confusion: ~ If patient has glasses and/or hearing aids, please ensure they are wearing them ~ Encourage family to visit with patient to reinforce orientation ~ Encourage patient to sleep at night by making sure TV is turned off, distractions are limited andlights are off ~ Ensure that during daylight hours the room is well lit ~ Discourage sleeping during the day ~ Instructions/requests by staff should be concise and given one step at a time ~ Talk clearly and use short sentences in a calm voice ~ Do not argue, confront or challenge the patient ~ Reorient patient to reality Care Plan while remaining in hospital: Patient Strengths: Insurance and Supportive relationships (family, friends, peers) Patient Coping Mechanisms: Other: did not identify Patient Triggers: Other: did not identify Distractions and things that may help: Allow patient to have cell phone if safety can be maintained, Coloring books/magazines/books, Be specific on time frames and follow them, and Give options when possible Additional Assessments: [place] Suicide Severity Rating Scale Recent Screener (Since Last Contact) [place] Suicide Severity Rating Scale (Since Last Contact Screener) 1. Wish to be (Since Last Contact): No 2. Non-Specific Active Suicidal Thoughts (Since Last Contact): No 6. Suicidal Behavior (Since Last Contact): No Calculated C-SSRS Risk Score (Since Last Contact): No Risk Indicated Thank you for the opportunity to participate in this patient's care. [facility] will continue to follow. [facility] Telehealth Patient? Yes Telehealth Patient? Yes This was a telepsych/telemedicine visit with Lei Rodriguez which took place via real-time video connection with [employer]. During the visit, I was located at my residence, and the patientwas located at [facility] in the [facility]. My visit with the patient started at 1125 and ended at 1131. After being given an opportunity to ask questions about and discuss this type of visit, the patientand/or guardian verbally consented to proceeding with the video visit. The patient and/or guardian understands that they may be billed and/or responsible for any applicable copayments. The patient and/or guardian agrees to participate in a psychiatric assessment service via Interactive Video Conferencing with a Qualified Mental Health Professional. Patient and/or guardian understands that their privacy and confidentiality will be protected at all times and all reasonable and appropriate measures will be made to eliminate all confidentiality risks. Patient and/or guardian understands that the services they receive are part of the patient's hospital record. Patient and/or guardian is aware that the [facility] and Hospital Staff will have access to the patient's relevant medical information including psychiatric and/or psychological information, alcohol and/or drug use and mental health records.Patient and/or guardian understands this consent is part of the patient's medical record. * Plan of Care - Karime Krishna RN - 06/15/2024 9:59 AM CDT 06/15/24 0958 Discharge Planning Support System Family members Anticipated discharge level of care nursing home facility (short term care) Does the patient need discharge transport arranged? Yes Type of Transportation Ambulance Has discharge transport been arranged? No Details of Transportation will need transport set up for transfer to snf Post Acute Care Plan Referral Status Started CM spoke with patient and family, pt sister Peg at bedside , discussed discharge planning. Patient will need iv abx until 06/22. Multiple referrals for snf have been sent most declining acceptance. Informed patient and sister of facilities that would possible accept pending insurance auth and patient orders and behavior and they do not like any of the choices. Reviewed again that we need a place for discharge sent more referrals per their request. Pending response. Patient is more alert andoff precedex gtt today. Appears more cooperative does not appear to understand the need for snf andiv abx at discharge. Sitter remains at bedside, cm will cont to monitor. Cm will cont to monitor. Karime Krishna RNsenior support engineer [phone] * Plan of Care - Eve Alvarado RN - 06/14/2024 10:39 PM CDT Goals: Clinical Goals for the Shift: vss,comfort,saftey Tower Attendant Patient Centered Goal for Treatment: Return home Summary: . Problem: Discharge Planning Goal: Understanding discharge needs will improve Outcome: Progressing Problem: Fall Risk Goal: Ability to state ways to decrease the risk of falls will improve Outcome: Progressing Goal: Will remain free from falls Outcome: Progressing Goal: Will remain free from injury from falls Outcome: Progressing Problem: Lack of Knowledge Goal: [...] care needs will improve Outcome: Progressing Problem: Skin Integrity Impairment Risk Goal: Mobility will improve Outcome: Progressing Goal: Understanding of ways to prevent future skin breakdown will improve Outcome: Progressing Goal: Nutritional status will improve Outcome: Progressing Goal: Risk for impaired skin integrity will decrease Outcome: Progressing Problem: Restraint for Interference with Medical Safety Goal: Knowledge of restraints will improve Outcome: Progressing Goal: Remains free from injury from restraints Outcome: Progressing Goal: Free from restraint(s) Outcome: Progressing * Plan of Care - Karime Krishna RN - 06/14/2024 11:49 AM CDT 06/14/24 1148 Discharge Planning Support System Family members Anticipated discharge level of care nursing home facility (short term care) Does the patient need discharge transport arranged? No Type of Transportation Ambulance Has discharge transport been arranged? No Details of Transportation will need transport set up for transfer to snf Post Acute Care Plan Post Acute Care Facility Yes Referral Status Started CM met with patient sister Peg at bedside and sister dilia was audio call on cell phone, discussed discharge planning. Pt refused to participate in conversation due to agitation . Family informed of referrals that had been sent for snf/abx on dc and facilities have all declined patient acceptance. Given new list and more referrals sent, Informed that [facility] (snf from where patient had come did say they would accept patient back) but at this time they do not wish for her to return there. Will need iv abx until 06/22. Awaiting response for new sent referrals. Patient remains with sitter and on precedex gtt. Appears easily agitated , restless and irritable. Plans for ct head pending. Plans to attempt to titrate off precedex gtt. And monitor mental status. Cont on iv abx, Goal at this time is snf on discharge pending patient acceptance. CM will cont to follow. Karime Krishna RNsenior support engineer [phone] * Plan of Care - Eve Trammell RN - 06/14/2024 10:42 AM CDT Problem: Discharge Planning Goal: Understanding discharge needs will improve Outcome: Ongoing Problem: Fall Risk Goal: Ability to state ways to decrease the risk of falls will improve Outcome: Ongoing Goal: Will remain free from falls Outcome: Ongoing Goal: Will remain free from injury from falls Outcome: Ongoing Problem: Lack of Knowledge Goal: [...] care needs will improve Outcome: Ongoing Problem: Skin Integrity Impairment Risk Goal: Mobility will improve Outcome: Ongoing Goal: Understanding of ways to prevent future skin breakdown will improve Outcome: Ongoing Goal: Nutritional status will improve Outcome: Ongoing Goal: Risk for impaired skin integrity will decrease Outcome: Ongoing Problem: Restraint for Interference with Medical Safety Goal: Knowledge of restraints will improve Outcome: Ongoing Goal: Remains free from injury from restraints Outcome: Ongoing Goal: Free from restraint(s) Outcome: Ongoing Goals: Clinical Goals for the Shift: VSS, continue precedex gtt and wean as tolerated, sitter for safety, decrease stimulation Usp Patient Centered Goal for Treatment: Return home Summary: * Plan of Care - Mandi Louise RN - 06/13/2024 11:02 PM CDT Goals: Clinical Goals for the Shift: VSS, continue precedex gtt and wean as tolerated, sitter for safety, decrease stimulation Tower Attendant Patient Centered Goal for Treatment: Return home Summary: Problem: Discharge Planning Goal: Understanding discharge needs will improve Outcome: Ongoing Flowsheets (Taken 06/13/20242300) Understanding of discharge needs will improve: Arrange for needed discharge resources and transportation as appropriate Collaborate with case management interdisciplinary team Identify discharge barriers Problem: Fall Risk Goal: Will remain free from falls Outcome: Ongoing Flowsheets (Taken 06/13/20242300) Will remain free from falls: Assess risk factors for falls Implement fall prevention measures Collaborate with other disciplines Problem: Coping Goal: Ability to cope will improve Outcome: Ongoing Flowsheets (Taken 06/13/20242300) Ability to cope will Improve: Provide emotional support Problem: Restraint for Interference with Medical Safety Goal: Free from restraint(s) Outcome: Ongoing Flowsheets (Taken 06/13/20242300) Free from restraint(s): Q2H and PRN: Assess and document the continuing need for restraints Identify and implement measures to help patient regain control * Plan of Frank - Aleja Godoy RN - 06/13/2024 10:42 AM CDT Problem: Discharge Planning Goal: Understanding discharge needs will improve Outcome: Not Progressing Problem: Fall Risk Goal: Ability to state ways to decrease the risk of falls will improve Outcome: Not Progressing Goal: Will remain free from falls Outcome: Not Progressing Goal: Will remain free from injury from falls Outcome: Not Progressing Problem: Skin Integrity Impairment Risk Goal: Mobility will improve Outcome: Not Progressing Goal: Understanding of ways to prevent future skin breakdown will improve Outcome: Not Progressing Goal: Nutritional status will improve Outcome: Not Progressing Goal: Risk for impaired skin integrity will decrease Outcome: Not Progressing Problem: Restraint for Interference with Medical Safety Goal: Knowledge of restraints will improve Outcome: Not Progressing Goal: Remains free from injury from restraints Outcome: Not Progressing Goal: Free from restraint(s) Outcome: Not Progressing Problem: Lack of Knowledge Goal: Ability to develop a pain control plan will improve Outcome: Not Progressing Problem: Medication Goal: Satisfaction with pain management medication regimen will improve Outcome: Not Progressing Problem: Sensory Goal: Ability to identify factors that increase pain levels will improve while working to decrease the patient's pain levels Outcome: Not Progressing Problem: Coping Goal: Ability to cope will improve Outcome: Not Progressing Problem: Health Behavior Goal: Identification of resources available to assist in meeting health care needs will improve Outcome: Not Progressing Goals: Clinical Goals for the Shift: Maintain safety of Pt and Hospital staff Tower Attendant Patient Centered Goal for Treatment: Return home Pt continues to be aggressive verbally abusive to hospital staff. Due to the Pt refusing medications, this nurse offered to crush meds and mix with Pt preferred purred food of choice, Pt accepted. [facility] sam[facility] medicineMD notified. Will continue to reassess and attempt to wean Precidex Drip. Aleja Godoy RN * Plan of Care - Karime Krishna RN - 06/13/2024 9:11 AM CDT 06/13/24 0911 Discharge Planning Support System Family members Anticipated discharge level of care nursing home facility (short term care) Does the patient need discharge transport arranged? Yes Type of Transportation Ambulance Details of Transportation will need transport set up for transfer to snf Per chart review patient had severe agitation Episode last evening currently very drowsy on a precedex gtt and has a sitter. Spoke with patient sister dilia moise [phone] to discuss request for new snf placement. They had given only once choice of facility. Did set out that referral but did request more picks to ensure facility acceptance. Requested her to speak to sister and get back to cm this morning so we can get referrals startedasap. She states understanding. PCP dr curran updated via Infol[employer] chat. CM will cont to follow. Karime Krishna RNsenior support engineer [phone] * Plan of Care - Molly Varghese RN - 06/12/2024 7:50 PM CDT Goals: Clinical Goals for the Shift: Stable vital signs; labs within normal range; provide comfortable andsafe envirnoment Usp Patient Centered Goal for Treatment: Return home Summary: 715- This RN received report form Karla DASILVA. 854- Contacted Dr Samuels via secure chat for clarification about giving Coreg when pt has systolic low pressure; Dr came to beside and asked to get clarification from cad drafter but not responds given 900- Contacted Dr Mcfarland for clarification about parameters for coreg but not responds given; medication was held. 1814- Contacted Dr Samuels via secure chat for medication to help calm pt down. came to bedside to see pt; new orders placed 1855- Contacted Dr. Samuels via secure chat for restraints due to pt pulling at PICC line; new order placed Problem: Discharge Planning Goal: Understanding discharge needs will improve 06/12/20241949 by Molly Varghese RN Outcome: Progressing 06/12/20241707 by Molly Varghese RN Outcome: Progressing Problem: Fall Risk Goal: Ability to state ways to decrease the risk of falls will improve 06/12/20241949 by Molly Varghese, BROWN Outcome: Progressing 06/12/20241707 by Molly Varghese RN Outcome: Progressing Goal: Will remain free from falls 06/12/20241949 by Molly Varghese RN Outcome: Progressing 06/12/20241707 by Molly Varghese, BROWN Outcome: Progressing Goal: Will remain free from injury from falls 06/12/20241949 by Molly Varghese RN Outcome: Progressing 06/12/20241707 by Molly Varghese, BROWN Outcome: Progressing Problem: Lack of Knowledge Goal: Ability to develop a pain control plan will improve 06/12/20241949 by Molly Varghese RN Outcome: Progressing 06/12/20241707 by Molly Varghese RN Outcome: Progressing Problem: Medication Goal: Satisfaction with pain management medication regimen will improve 06/12/20241949 by Molly Varghese RN Outcome: Progressing 06/12/20241707 by Molly Varghese RN Outcome: Progressing Problem: Sensory Goal: Ability to identify factors that increase pain levels will improve while working to decrease the patient's pain levels 06/12/20241949 by Molly Varghese RN Outcome: Progressing 06/12/20241707 by Molly Varghese RN Outcome: Progressing Problem: Coping Goal: Ability to cope will improve 06/12/20241949 by Molly Varghese RN Outcome: Progressing 06/12/20241707 by Molly Varghese RN Outcome: Progressing Problem: Health Behavior Goal: Identification of resources available to assist in meeting health care needs will improve 06/12/20241949 by Molly Varghese RN Outcome: Progressing 06/12/20241707 by Molly Varghese RN Outcome: Progressing Problem: Skin Integrity Impairment Risk Goal: Mobility will improve 06/12/20241949 by Molly Varghese RN Outcome: Progressing 06/12/20241707 by Molly Varghese RN Outcome: Progressing Goal: Understanding of ways to prevent future skin breakdown will improve 06/12/20241949 by Molly Varghese RN Outcome: Progressing 06/12/20241707 by Molly Varghese RN Outcome: Progressing Goal: Nutritional status will improve 06/12/20241949 by Molly Varghese RN Outcome: Progressing 06/12/20241707 by Molly Varghese RN Outcome: Progressing Goal: Risk for impaired skin integrity will decrease 06/12/20241949 by Molly Varghese RN Outcome: Progressing 06/12/20241707 by Molly Varghese RN Outcome: Progressing * Significant Event - Coleen Samuels MD - 06/12/2024 6:22 PM CDT Was called by nursing as patient is having a psychotic break. She has become very aggressive hitting herself and staff. Will need to put on soft restraints for the patient. Will give dose of Haldol, Zyprexa. If this fails may need to start Precedex. Sister was present for the initial episode. Patient does not received any new psychiatric medications today or any new pain killers. Unsure what caused mental changes * Plan of Care - Karime Krishna RN - 06/12/2024 2:23 PM CDT CM back to patient room no family available to discuss snf choice list.will attempt again as time allows. . Karime Krishna RNsenior support engineer [phone] * Provider Query - Coleen Samuels MD - 06/12/2024 2:14 PM CDT Specify the significance of the abnormal BMI (body mass index) and document in the medical record and on the form below. Elevated BMI ___Overweight ___Obesity __x_Morbid (Severe) (Class 3) Obesity ___Other, specify below Additional Provider Response: Bsed on bmi Clinical Indicators/Treatments: 63 y/o with hx of AFIB, CHF, DM2, GERD, HTN, Intellectual disability, JOSE transferred from [facility] with Syncopal/ Vtach, recently admitted 05/29/24-06/08/24 for endocarditis and is still on Ancef 2 g every 8 hours. On 06/11 97.2, 91, 28, 101/68 K 3.2 BMI 42.22 115.1 kg (253 lb 11.2 oz) as of 06/11/202406/12 IM PN -- Physical Exam Constitutional: Appearance: She is well-developed. She is obese. References: From the ICD-10-CM Official Guidelines for Coding and Reporting, use of terms such as likely, suspected, possible, or probable (associated with a specific diagnosis that is being evaluated, monitored, or treated as if it exists) are acceptable and can be coded in the inpatient setting when documented at the time of discharge. BMI definitions per www.NHLBI.nih.gov BMI Weight Status <18.5 Underweight 18.5 to 24.9 Normal/Healthy 25 to 29.9 Overweight 30 to 39.9 Obesity >40 Extreme Obesity (Morbid) This documentation will become part of the patient???s medical record. * Initial Assessments - Karime Krishna RN - 06/12/2024 12:41 PM CDT CM Initial Assessment Interview Note Information Obtained From: Other (Specify) Name: Dilia Moise sister [phone] (06/12/24 1233) Admission Source: Patient admitted from SNF for Passing out and fall hitting head found to have hadher aicd firing 5 separate times. . Impression: CM met with patient at bedside able to answer some question and and cm called patient sister Dilia Moise [phone] to complete initial discharge assessment . Demographics verified via face sheet. Patient was at [facility] had been there for snf and abx therapy, on ancef abx 2000mg q 8 hours ordered unitl 06/22. Was at facility visiting with sister and had shaking noted then vomiting , then had syncopal event falling and hitting her head. [facility] in route had episode of vtach. AICD was interrogated and 5 discharges were noted. Transferred to [facility] for higher level of cared. CT head, cervical spine, abd and pelvis showed no acute finding.Cardio consulted and has made some med changes. Goal will be to go to snf for iv abx. Patient baseline has intellect disabilities does live alone , has break up worker hour a month. Has total of 2 sister that check on her frequently min assist of adls. Provide transportation. But patient is able to be alone . Goal will be return home after iv abx therapy and snf therapy. Plan Includes: iv abx, monitor heart rate and rhythm,, iv electrolyte replacement as needed. Med changes as per cardio. Primary Source of Transportation: Does the patient need discharge transport arranged?: Yes Has discharge transport been arranged?: No Details of Transportation: will need transport set up to snf on dc (06/11/24 0200) Health Insurance Coverage: [facility] plan Prescription Coverage: 2023 [facility] Super ID [id number] - [place], [place] - [address] [[id number]] Primary Care Provider:will follow up with pcp upon discharge. 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 Home care service name and phone number: sister Dilia Moise is break up worker 110 hours a month Durable Medical Equipment: CPAP/Bi-PAP, Walker (wheeled), Shower chair Living Arrangements: Alone (was at snf for abx after hopitial admit, lived home prior) Type of Residence: Private residence Does patient wish to return to care facility?: No, wishes for other placement Will the care facility allow the patient to return?: Yes, patient can return Facility contact name and number:: [facility] Medication management: Needs Assistance (Comment) (06/11/24 0200) SDOH: Transportation: In the past 12 months, has lack of transportation kept you from medical appointments or from getting medications?: No In the past 12 months, has lack of transportation kept you from meetings, work, or from getting things needed for daily living?: No (06/12/24 1232) Financial Resource: How hard is it for you to pay for the very basics like food, housing, medical care, and heating?: Somewhat hard (06/12/24 1232) Housing: In the last 12 months, was there a time when you were not able to pay the mortgage or rent on time?: No In the past 12 months, how many times have you moved where you were living?: 1 At any time in the past 12 months, were you homeless or living in a snf (including now)?: No (06/12/24 1233) Utilities: Yes, (06/12/24 123) Social Connections: In a typical week, how many times do you talk on the phone with family, friends, or neighbors?: More than three times a week How often do you get together with friends or relatives?: More than three times a week How often do you attend congregational or druze services?: Never Do you belong to any clubs or organizations such as congregational groups, unions, fraternal or athletic groups, or school groups?: No How often do you attend meetings of the clubs or organizations you belong to?: Never Are you , , , , never , or living with a partner?: (06/12/24 123) Food Insecurity: Within the past 12 months, you worried that your food would run out before you got the money to buymore.: Never true Within the past 12 months, the food you bought just didn't last and you didn't have money to get more.: Never true (06/12/24 123) Alcohol Use: PHQ Screening Potential discharge needs include: OP Services: Dialysis: Behavioral Health Services: Anticipated Level of Care: Anticipated discharge level of care: nursing home facility (short term care) Pt/Family agrees with Anticipated Level of Care: Yes (06/12/241232) Patient expects to be Discharged to: [facility] (short term care), (06/12/241232) Additional Information: na Patient's Identified Problem/Goal Problem: Ensure acute medical [...] Collaboration with Patient, Provider, Direct Care Nurse, Ocular Care Technician, and other members of theHealth Care Team to assure needed interventions completed. 2. Return patient to optimal level of self-care post discharge. 3. Inside [employer]isher will follow for Discharge Planning - interventions as needed 4. Anticipated level of care at discharge 5. Planned Discharge Disposition Karime Krishna RNsenior support engineer [phone] * Medical Student - Herb Hercules - 06/12/2024 8:11 AM CDT HOSPITALIST PROGRESS NOTE PCP: Oswaldo Serrano [phone] Admit Date: 06/10/2024 11:41 PM LOS: 1 CHIEF COMPLAINT/ BRIEF HOSPITAL COURSE Lei Rodriguez is a 63 yr F with a PMH of A-fib on Xarelto, CHF, T2DB, GERD, HTN, intellectual disability, JOSE, thyroid disease and endocarditis who presented to the ED on 06/11 after having an episode of n/v and falling and hitting her head. Her AICD reported 5 defibrillations for episodes of elia tricular tachycardia. This patient was just discharged from [facility] for endocarditis and was on Ancef q8h through PICC line. CT head, c spine, and A/P were negative in the ED, as well as normal troponins. Dr. Flores and Dr. Zeng are following. 06/11, cardiology discontinued Dofetilide for concerns of QTc prolongation precipitating her ventricular arrhythmia. Also discontinued diltiazem for hypotension. In addition, Lexapro was decreased from10 mg to 5 mg since it also have QTc prolongation properties. INTERVAL HISTORY 06/12, seen by nephrology at night on 06/11. There is no need for GERALD/CKD workup at this time. Recommended to keep K over 4 and Mg over 2. They also agreed with cardiology to hold Lasix at this time. Spoke with patient and patient's sister over the phone and they voiced that they were unpleased with her last skilled nursing not taking good care of her. She also wants to wear her diapers as she feels violated and uncomfortable without them. REVIEW OF SYSTEMS Review of Systems Constitutional: Negative. HENT: Negative. Eyes: Negative. Respiratory: Negative. Cardiovascular: Negative. Gastrointestinal: Negative. Genitourinary: Negative. Musculoskeletal: Negative. Skin: Negative. Neurological: Negative. Psychiatric/Behavioral: Patient is a little depressed today EXAM Vitals: 06/12/24 0734 BP: Pulse: Resp: Temp: 36.5 ??C (97.7 ??F) SpO2: Physical Exam Constitutional: General: She is not in acute distress. Appearance: She is obese. She is not ill-appearing. HENT: Nose: Nose normal. Mouth/Throat: Mouth: Mucous membranes are dry. Pharynx: Oropharynx is clear. Eyes: Extraocular Movements: Extraocular movements intact. Conjunctiva/sclera: Conjunctivae normal. Cardiovascular: Rate and Rhythm: Normal rate and regular rhythm. Pulses: Normal pulses. Heart sounds: Normal heart sounds. Pulmonary: Effort: Pulmonary effort is normal. Breath sounds: Normal breath sounds. Abdominal: Palpations: Abdomen is soft. Tenderness: There is no abdominal tenderness. There is no guarding or rebound. Musculoskeletal: Right lower leg: No edema. Left lower leg: No edema. Skin: General: Skin is warm and dry. Capillary Refill: Capillary refill takes less than 2 seconds. Neurological: Mental Status: She is alert and oriented to person, place, and time. Psychiatric: Mood and Affect: Mood is depressed. Affect is tearful. Speech: Speech normal. Behavior: Behavior is cooperative. Scheduled Meds: carvediloL, 25 mg, oral, BID with meals (bkfst, dinner) ceFAZolin, 2 g, intravenous, Q8H GALINA cholecalciferol, 5,000 Units, oral, Daily docusate sodium, 100 mg, oral, BID escitalopram, 5 mg, oral, Daily ferrous sulfate, 65 mg of elemental iron, oral, Daily with breakfast insulin glargine, 0.15 Units/kg, subcutaneous, Nightly insulin lispro, 0-4 Units, subcutaneous, Nightly insulin lispro, 0-5 Units, subcutaneous, TID with meals insulin lispro, 0.05 Units/kg, subcutaneous, TID with meals levothyroxine, 75 mcg, oral, QAM midodrine, 5 mg, oral, TID AC multivit szvroxcj-gygg-YL-calcium, 1 tablet, oral, Daily nortriptyline, 10 mg, oral, Daily pantoprazole DR, 40 mg, oral, Daily potassium chloride ER, 40 mEq, oral, Daily rivaroxaban, 20 mg, oral, Daily with dinner sacubitriL-valsartan, 1 tablet, oral, BID Continuous Infusions: PRN Meds:. albuterol HFA, 2 puff dextrose, 15 g OR dextrose, 250 mL fluticasone propionate, 1 spray glucagon, 1 mg HYDROcodone-acetaminophen, 1 tablet, 1 tablet at 06/12/24 0659 Diet: Dietary Orders (From admission, onward) Start Ordered 06/11/24 2100 Bedtime snack At bedtime Comments: If bedtime BG is less than 100mg/dl, give patient a 15 gram carbohydrate snack. 06/11/24 0036 06/11/24 0116 Adult Diet Restricted; Low Fat, Low Chol, Low Na; No Concentrated Sweets Diet effective now Question Answer Comment (CH) Diet type Restricted Fat / Sodium Restriction: Low Fat, Low Chol, Low Na Diabetic: No Concentrated Sweets 06/11/24 0115 ASSESSMENT AND PLAN All Diagnosis Present on Admission Unless Otherwise Stated: Principal Problem: Ventricular tachycardia (HCC) Active Problems: Controlled type 2 diabetes mellitus with chronic kidney disease, with long-term current use of insulin (HCC) Hypothyroidism Hypotension due to drugs Chronic diastolic congestive heart failure (CMS/HCC) (HCC) Endocarditis Urinary frequency Gastroesophageal reflux disease without esophagitis Paroxysmal atrial fibrillation (CMS/HCC) (HCC) Major depressive disorder CKD (chronic kidney disease) Ventricular Tachycardia Interrogated AICD shows 5 defibrillations. Initial Troponins were 0.018 and 0.030 which are WNL. Continue to monitor on telemetry. Cardiology consulted. Cardizem discontinued due to hypotension. Dofetilide discontinued due to concern for precipitating V Tach. K+ 3.2. Will replete. No indications for cath at the moment. Goal to keep K over 4 and Mg over 2 per nephrology. T2DB SSI. Continue Lantus and prandial Humalog. CHF Outside hospital BNP of 1600. CXR shows cardiomegaly. No clinical signs of fluid overload. Discontinue Lasix. Continue Coreg 25mg bid, and Entresto 24-26 BID. ECHO on 05/30/24 showed EF of 30% with apparent diastolic dysfunction Endocarditis Discharged on 06/08/24. Receiving Ancef 2g q8h through PICC line. Start date was during last hospital stay. Patient will stay on for 11 more days (end date 06/22/24). Hypothyroidism Continue Levothyroxine 75mg Urinary Incontinence Continue Mirabegron 25 mg Hypotension Continue to monitor vitals and midodrine 5mg TID GERD Continue Protonix 40mg BID A fib Discontinued Cardizem and Dofetilide. On Xarelto 20mg daily. On Coreg 25 mg. CKD Nephrology consulted. Potassium 3.2. Replete in the setting of ventricular tachycardia. Creatinine 0.63. Nephrology does not have any indication for CKD/GERALD workup and recommends keeping K over 4 andMg over 2. Depression On Lexapro 10 mg and notriptyline 10 mg daily. Will adjust Lexapro to 5 mg because of its QTc prolongation properties. DVT prophylaxis On Xarelto 20 mg daily Medical Decision Making Complexity: Consulting physicians: Treatment Team: Consulting Physician: Ty Mcfarland MD; Consulting Physician: Seth Flores MD Disposition: Code status: Full Code Voice recognition software Infectious Direct was used dictate and transcribe this document. Developer Advisor variances may occur. Despite proofreading, typographical errors may occur. Med Student Cosigned by Coleen Samuels MD at 06/12/2024 2:21 PM CDT * Plan of Care - Donna Byrd RN - 06/11/2024 12:25 PM CDT Goals: Clinical Goals for the Shift: monitor vs, safety, comfort Usp Patient Centered Goal for Treatment: dc Summary: Problem: Discharge Planning Goal: Understanding discharge needs will improve Outcome: Ongoing Flowsheets (Taken 06/11/2024 1225) Understanding of discharge needs will improve: Identify discharge learning needs (meds, wound care, etc.) Collaborate with case management interdisciplinary team Arrange for needed discharge resources and transportation as appropriate Identify discharge barriers * Medical Student - Herb Hercules - 06/11/2024 8:37 AM CDT HOSPITALIST PROGRESS NOTE PCP: Oswaldo Serrano [phone] Admit Date: 06/10/2024 11:41 PM LOS: 1 CHIEF COMPLAINT/ BRIEF HOSPITAL COURSE Lei Rodriguez is a 63 yr F with a PMH of A-fib on Xarelto, CHF, T2DB, GERD, HTN, intellectual disability, JOSE, thyroid disease and endocarditis who presented to the ED on 06/11 after having an episode of n/v and falling and hitting her head. Her AICD reported 5 defibrillations for episodes of elia tricular tachycardia. This patient was just discharged from [facility] for endocarditis and was on Ancef q8h through PICC line. CT head, c spine, and A/P were negative in the ED, as well as normal troponins. Dr. Flores and Dr. Zeng are following. INTERVAL HISTORY 06/11. Patient feels very tired and has a headache. No other complaints. Also seen by cardiology . See assessment and plan for changes. REVIEW OF SYSTEMS Review of Systems Skin: Positive for wound. Neurological: Positive for headaches. All other systems reviewed and are negative. EXAM Vitals: 06/11/24 0730 BP: 124/70 Pulse: 87 Resp: 22 Temp: SpO2: 91% Physical Exam Constitutional: General: She is not in acute distress. Appearance: She is obese. She is not ill-appearing. HENT: Head: Comments: There is a bandage on forehead covering wound that was caused by her fall. Nose: Nose normal. Mouth/Throat: Mouth: Mucous membranes are moist. Pharynx: Oropharynx is clear. Eyes: Extraocular Movements: Extraocular movements intact. Conjunctiva/sclera: Conjunctivae normal. Cardiovascular: Rate and Rhythm: Normal rate. Rhythm irregular. Pulses: Normal pulses. Heart sounds: Normal heart sounds. Pulmonary: Effort: Pulmonary effort is normal. Breath sounds: Normal breath sounds. Abdominal: General: Abdomen is protuberant. Palpations: Abdomen is soft. Tenderness: There is no abdominal tenderness. There is no guarding or rebound. Skin: General: Skin is warm and dry. Capillary Refill: Capillary refill takes less than 2 seconds. Neurological: Mental Status: She is alert and oriented to person, place, and time. Psychiatric: Mood and Affect: Mood normal. Behavior: Behavior normal. Scheduled Meds: carvediloL, 25 mg, oral, BID with meals (bkfst, dinner) ceFAZolin, 2 g, intravenous, Q8H GALINA cholecalciferol, 5,000 Units, oral, Daily dilTIAZem, 30 mg, oral, TID docusate sodium, 100 mg, oral, BID dofetilide, 500 mcg, oral, BID escitalopram, 10 mg, oral, Daily ferrous sulfate, 65 mg of elemental iron, oral, Daily with breakfast furosemide, 40 mg, oral, Daily insulin glargine, 0.15 Units/kg, subcutaneous, Nightly insulin lispro, 0-4 Units, subcutaneous, Nightly insulin lispro, 0-5 Units, subcutaneous, TID with meals insulin lispro, 0.05 Units/kg, subcutaneous, TID with meals levothyroxine, 75 mcg, oral, QAM midodrine, 5 mg, oral, TID AC mirabegron ER, 25 mg, oral, Daily multivit jneyamdt-tvtt-XV-calcium, 1 tablet, oral, Daily nortriptyline, 10 mg, oral, Daily pantoprazole DR, 40 mg, oral, Daily potassium chloride ER, 20 mEq, oral, Daily rivaroxaban, 20 mg, oral, Daily with dinner sacubitriL-valsartan, 1 tablet, oral, BID Continuous Infusions: PRN Meds:. albuterol HFA, 2 puff dextrose, 15 g OR dextrose, 250 mL fluticasone propionate, 1 spray glucagon, 1 mg HYDROcodone-acetaminophen, 1 tablet Diet: Dietary Orders (From admission, onward) Start Ordered 06/11/24 2100 Bedtime snack At bedtime Comments: If bedtime BG is less than 100mg/dl, give patient a 15 gram carbohydrate snack. 06/11/24 0036 06/11/24 0116 Adult Diet Restricted; Low Fat, Low Chol, Low Na; No Concentrated Sweets Diet effective now Question Answer Comment (CH) Diet type Restricted Fat / Sodium Restriction: Low Fat, Low Chol, Low Na Diabetic: No Concentrated Sweets 06/11/24 0115 ASSESSMENT AND PLAN All Diagnosis Present on Admission Unless Otherwise Stated: Principal Problem: Ventricular tachycardia (HCC) Active Problems: Controlled type 2 diabetes mellitus with chronic kidney disease, with long-term current use of insulin (HCC) Hypothyroidism Hypotension due to drugs Chronic diastolic congestive heart failure (CMS/HCC) (HCC) Endocarditis Urinary frequency Gastroesophageal reflux disease without esophagitis Paroxysmal atrial fibrillation (CMS/HCC) (HCC) Major depressive disorder CKD (chronic kidney disease) Ventricular Tachycardia Interrogated AICD shows 5 defibrillations. Initial Troponins were 0.018 and 0.030 which are WNL. Continue to monitor on telemetry. Cardiology consulted. Cardizem discontinued due to hypotension. Dofetilide discontinued due to concern for precipitating V Tach. K+ 3.2. Will replete. No indications for cath at the moment. T2DB SSI. Continue Lantus and prandial Humalog. CHF Outside hospital BNP of 1600. CXR shows cardiomegaly. No clinical signs of fluid overload. Discontinue Lasix. Continue Coreg 25mg bid, and Entresto 24-26 BID. ECHO on 05/30/24 showed EF of 30% with apparent diastolic dysfunction Endocarditis Discharged on 06/08/24. Receiving Ancef 2g q8h through PICC line Hypothyroidism Continue Levothyroxine 75mg Urinary Incontinence Continue Mirabegron 25 mg Hypotension Continue to monitor vitals and midodrine 5mg TID GERD Continue Protonix 40mg BID A fib Discontinued Cardizem and Dofetilide. On Xarelto 20mg daily. On Coreg 25 mg. CKD Nephrology consulted. Potassium 3.2. Replete in the setting of ventricular tachycardia. Creatinine 0.63. Depression On Lexapro 10 mg and notriptyline 10 mg daily DVT prophylaxis On Xarelto 20 mg daily Medical Decision Making Complexity: Consulting physicians: Treatment Team: Consulting Physician: Ty Mcfarland MD; Consulting Physician: Seth Flores MD Disposition: Code status: Full Code Voice recognition software Infectious Direct was used dictate and transcribe this document. Developer Advisor variances may occur. Despite proofreading, typographical errors may occur. Med Student Cosigned by Coleen Samuels MD at 06/11/2024 11:46 AM CDT * Plan of Care - Lizzy Koo RN - 06/11/2024 2:12 AM CDT Problem: Discharge Planning Goal: Understanding discharge needs will improve Outcome: Progressing Problem: Fall Risk Goal: Ability to state ways to decrease the risk of falls will improve Outcome: Progressing Goal: Will remain free from falls Outcome: Progressing Goal: Will remain free from injury from falls Outcome: Progressing Summary: Patient admitted to room 312 from [facility] . Patient is AAO4 with developmental delays, currently on RA . Patient was transported to [facility] after a syncope episode at thenursing room were she resides. Skin assessment completed - bruising noted to BUE , stitches(4) to left side of her forehead d/t fall. Patient has a double lumen picc to her right arm , 20 gauge PIV to the left hand. Patient orientated to the room , fall precautions in place, call light in reach , no c/o pain at this time. Will continue with plan of care. documented in this encounter Plan of Treatment Not on file documented as of this encounter Procedures Procedure Name Priority Date/Time Associated Diagnosis Comments POCT GLUCOSE DEVICE Routine 06/21/2024 1 1:50 AM CDT POCT GLUCOSE DEVICE Routine 06/21/2024 6 :57 AM CDT EGFR Routine 06/21/2024 1:16 AM CDT MAGNESIUM Routine 06/21/2024 1:16 AM CDT RENAL FUNCTION PANEL Routine 06/21/2024 1:16 AM CDT POCT GLUCOSE DEVICE Routine 06/20/2024 8 :40 PM CDT POCT GLUCOSE DEVICE Routine 06/20/2024 5 :37 PM CDT POCT GLUCOSE DEVICE Routine 06/20/2024 1 2:45 PM CDT POCT GLUCOSE DEVICE Routine 06/20/2024 6 :36 AM CDT EGFR Routine 06/20/2024 12:34 AM CDT DIFFERENTIAL AUTO Routine 06/20/2024 12: 34 AM CDT CBC WITH AUTO DIFFERENTIAL Routine 06/20/2024 12:34 AM CDT MAGNESIUM Routine 06/20/2024 12:34 AM CDT RENAL FUNCTION PANEL Routine 06/20/2024 12:34 AM CDT POCT GLUCOSE DEVICE Routine 06/19/2024 8 :54 PM CDT POCT GLUCOSE DEVICE Routine 06/19/2024 6 :33 PM CDT POCT GLUCOSE DEVICE Routine 06/19/2024 1 1:13 AM CDT POCT GLUCOSE DEVICE Routine 06/19/2024 6 :29 AM CDT EGFR Routine 06/19/2024 4:29 AM CDT MAGNESIUM Routine 06/19/2024 4:29 AM CDT RENAL FUNCTION PANEL Routine 06/19/2024 4:29 AM CDT POCT GLUCOSE DEVICE Routine 06/18/2024 8 :27 PM CDT POCT GLUCOSE DEVICE Routine 06/18/2024 5 :03 PM CDT POCT GLUCOSE DEVICE Routine 06/18/2024 1 1:30 AM CDT POCT GLUCOSE DEVICE Routine 06/18/2024 6 :50 AM CDT POCT GLUCOSE DEVICE Routine 06/18/2024 2 :04 AM CDT EGFR Routine 06/17/2024 11:51 PM CDT MAGNESIUM Routine 06/17/2024 11:51 PM CDT RENAL FUNCTION PANEL Routine 06/17/2024 11:51 PM CDT POCT GLUCOSE DEVICE Routine 06/17/2024 8 :08 PM CDT POCT GLUCOSE DEVICE Routine 06/17/2024 4 :37 PM CDT POCT GLUCOSE DEVICE Routine 06/17/2024 1 1:38 AM CDT POCT GLUCOSE DEVICE Routine 06/17/2024 6 :45 AM CDT POCT GLUCOSE DEVICE Routine 06/17/2024 2 :19 AM CDT EGFR Routine 06/17/2024 12:15 AM CDT MAGNESIUM Routine 06/17/2024 12:15 AM CDT RENAL FUNCTION PANEL Routine 06/17/2024 12:15 AM CDT POCT GLUCOSE DEVICE Routine 06/16/2024 8 :02 PM CDT POCT GLUCOSE DEVICE Routine 06/16/2024 4 :04 PM CDT POCT GLUCOSE DEVICE Routine 06/16/2024 1 1:59 AM CDT POCT GLUCOSE DEVICE Routine 06/16/2024 6 :28 AM CDT EGFR Routine 06/16/2024 2:41 AM CDT MAGNESIUM Routine 06/16/2024 2:41 AM CDT RENAL FUNCTION PANEL Routine 06/16/2024 2:41 AM CDT POCT GLUCOSE DEVICE Routine 06/15/2024 7 :37 PM CDT POCT GLUCOSE DEVICE Routine 06/15/2024 4 :31 PM CDT POCT GLUCOSE DEVICE Routine 06/15/2024 1 1:41 AM CDT POCT GLUCOSE DEVICE Routine 06/15/2024 8 :10 AM CDT EGFR Routine 06/15/2024 6:09 AM CDT MAGNESIUM Routine 06/15/2024 6:09 AM CDT RENAL FUNCTION PANEL Routine 06/15/2024 6:09 AM CDT POCT GLUCOSE DEVICE Routine 06/14/2024 8 :43 PM CDT POCT GLUCOSE DEVICE Routine 06/14/2024 5 :46 PM CDT URINALYSIS AND REFLEX TO MICROSCOPIC AND CULTURE Routine 06/14/2024 2:[address] HEAD WO CONTRAST ED Urgent/IP Urgent 06/14/2024 1:03 PM CDT POCT GLUCOSE DEVICE Routine 06/14/2024 1 2:23 PM CDT XR CHEST 1 VIEW IP Routine 06/14/2024 12:22 PM CDT POCT GLUCOSE DEVICE Routine 06/14/2024 7 :49 AM CDT EGFR Routine 06/14/2024 4:35 AM CDT MAGNESIUM Routine 06/14/2024 4:35 AM CDT RENAL FUNCTION PANEL Routine 06/14/2024 4:35 AM CDT POCT GLUCOSE DEVICE Routine 06/13/2024 8 :05 PM CDT POCT GLUCOSE DEVICE Routine 06/13/2024 4 :16 PM CDT BLOOD CULTURE Routine 06/13/2024 2:31 PM CDT BLOOD CULTURE Routine 06/13/2024 2:31 PM CDT POCT GLUCOSE DEVICE Routine 06/13/2024 1 1:38 AM CDT POCT GLUCOSE DEVICE Routine 06/13/2024 7 :30 AM CDT EGFR Routine 06/13/2024 2:59 AM CDT MAGNESIUM Routine 06/13/2024 2:59 AM CDT RENAL FUNCTION PANEL Routine 06/13/2024 2:59 AM CDT POCT GLUCOSE DEVICE Routine 06/12/2024 8 :07 PM CDT POCT GLUCOSE DEVICE Routine 06/12/2024 5 :10 PM CDT POCT GLUCOSE DEVICE Routine 06/12/2024 1 2:02 PM CDT POCT GLUCOSE DEVICE Routine 06/12/2024 7 :36 AM CDT TREMAINE QUALITATIVE WITH REFLEX TO TREMAINE QUANTITATIVE Routine 06/12/2024 6:46 AM CDT URINALYSIS AND REFLEX TO MICROSCOPIC AND CULTURE Routine 06/12/2024 6:46 AM CDT PROTEIN / CREATININE RATIO, URINE, RANDOM Routine 06/12/2024 6:46 AM CDT SODIUM, URINE, RANDOM Routine 06/12/2024 6:46 AM CDT POTASSIUM, URINE, RANDOM Routine 06/12/2024 6:46 AM CDT CHLORIDE, URINE, RANDOM Routine 06/12/2024 6:46 AM CDT URINALYSIS, MICROSCOPIC ONLY Routine 06/12/2024 6:46 AM CDT EGFR Routine 06/12/2024 3:44 AM CDT MAGNESIUM Routine 06/12/2024 3:44 AM CDT RENAL FUNCTION PANEL Routine 06/12/2024 3:44 AM CDT POCT GLUCOSE DEVICE Routine 06/11/2024 7 :52 PM CDT POCT GLUCOSE DEVICE Routine 06/11/2024 5 :28 PM CDT POCT GLUCOSE DEVICE Routine 06/11/2024 4 :08 PM CDT POCT GLUCOSE DEVICE Routine 06/11/2024 1 2:52 PM CDT POCT GLUCOSE DEVICE Routine 06/11/2024 8 :17 AM CDT EGFR Routine 06/11/2024 1:07 AM CDT DIFFERENTIAL AUTO Routine 06/11/2024 1:0 7 AM CDT CBC WITH AUTO DIFFERENTIAL Routine 06/11/2024 1:07 AM CDT CBC WITHOUT DIFFERENTIAL Routine 06/11/2024 1:07 AM CDT MAGNESIUM Routine 06/11/2024 1:07 AM CDT BASIC METABOLIC PANEL Routine 06/11/2024 1:07 AM CDT POCT GLUCOSE DEVICE Routine 06/11/2024 1 2:07 AM CDT documented in this encounter Results * (ABNORMAL) POCT glucose (06/21/2024 11:50 AM CDT) Glucose, POC 226(H) 70 - 199 mg/dL Blood 06/21/2024 11:5 0 AM CDT 06/21/2024 11:50 AM CDT us Nancyandreina Hartley MD LAB POCT ORDERABLES - [place] [id number] [address] Department [place] [address] * POCT glucose (06/21/2024 6:57 AM CDT) Glucose, POC 135 70 - 199 mg/dL Blood 06/21/2024 6:57 AM CDT 06/21/2024 6:57 AM CDT Nancy Hartley MD LAB POCT ORDERABLES - DEVICE F inal Result Performing Organization Address City/State/[facility] Co de Phone Number OLAM[place] CAR [id number] [address] Department [place] [address] * eGFR (06/21/2024 1:16 AM CDT) eGFR 81 >=60 mL/min/1. 73 m2 Comment: Interpretive Data [...] interpretive data was last reviewed 2021. Blood 06/21/2024 1:16 AM CDT 06/21/2024 2:06 AM CDT Seth Flores MD LAB BLOOD ORDERABLES Final Res ult [place] [address] [address] [address] Department [place] [place] [address] * (ABNORMAL) Renal function panel (06/21/2024 1:16 AM CDT) Sodium 135 135 - 145 mmol/L Potassium, pl 4.5 3.3 - 4.9 mmol/L [facility] Chloride 98 97 - 110 mmol/L [facility] CH CO2 25 22 - 32 mmol/L [facility] CH Anion gap 12 2 - 15 mmol/L [facility] BUN 17 6 - 25 mg/dL [facility] Creatinine 0.82 0.60 - 1.10 mg/dL [facility] Glucose 218(H) 70 - 199 mg/dL [facility] Comment: Interpretive Data Fasting glucose >/= 126 [...] Calcium 9.6 8.5 - 10.3 mg/dL [facility] Phosphorus, pl 3.7 2.3 - 4.5 mg/dL [facility] Albumin 3.8 3.5 - 5.0 g/dL C[facility] Blood 06/21/2024 1:16 AM CDT 06/21/2024 2:06 AM CDT Seth Flores MD LAB BLOOD ORDERABLES Final Res ult Performing Organization Address City/[facility]/ZIP Co de Phone Number OLAMIDE CAR [id number] [address] [facility] [place] [address] * Magnesium (06/21/2024 1:16 AM CDT) Magnesium 2.0 1.4 - 2.5 mg/dL Blood 06/21/2024 1:16 AM CDT 06/21/2024 2:06 AM CDT Rachel Barnes PAN DEVULCAN[employer]ER LAB BLOOD ORDERABLES Ayanna l Result Performing Organization Address City/[facility]/ZIP Co de Phone Number OLAMIDE [id number] [address] [facility] [place] [address] * POCT glucose (06/20/2024 8:40 PM CDT) Glucose, POC 194 70 - 199 mg/dL Blood 06/20/2024 8:40 PM CDT 06/20/2024 8:40 PM CDT Nancy Hartley MD LAB POCT ORDERABLES - DEVICE F inal Result Performing Organization Address [facility] Co de Phone Number OLAMIDE [phone] [address] [facility] [place] [address] * POCT glucose (06/20/2024 5:37 PM CDT) Glucose, POC 197 70 - 199 mg/dL Blood 06/20/2024 5:37 PM CDT 06/20/2024 5:37 PM CDT Nancy Hartley MD LAB POCT ORDERABLES - DEVICE F inal Result Performing Organization Address [facility] Co de Phone Number OLAMIDE [phone] [address] [facility] [place] [address] * POCT glucose (06/20/2024 12:45 PM CDT) Glucose, POC 198 70 - 199 mg/dL Blood 06/20/2024 12:4 5 PM CDT 06/20/2024 12:45 PM CDT Nancy Hartley MD LAB POCT ORDERABLES - DEVICE F inal Result Performing Organization Address [facility] Co de Phone Number OLAMIDE [id number] [address] [facility] [place] [address] * POCT glucose (06/20/2024 6:36 AM CDT) Glucose, POC 132 70 - 199 mg/dL Blood 06/20/2024 6:36 AM CDT 06/20/2024 6:36 AM CDT Nancy Hartley MD LAB POCT ORDERABLES - DEVICE F inal Result Performing Organization Address [facility] de Phone Number OLAMIDE [phone] [address] [place] [address] * eGFR (06/20/2024 12:34 AM CDT) eGFR 83 >=60 mL/min/1. 73 [...] Inclusion of Race in Diagnosing Kidney Disease, ARIESJuan Luis 2020). The CKD-EPI equation should not be used for patients with unstable renal function and has not been validated in children and those over 70. Current interpretive data was last reviewed 2021. Blood 06/20/2024 12:3 4 AM CDT 06/20/2024 1:05 AM CDT us Seth Flores MD LAB BLOOD ORDERABLES Final Res ult [facility] [address] [address] Department [place] [address] * Differential, auto (06/20/2024 12:34 AM CDT) Neutrophil abs 3.5 1.5 - 6.5 K/cumm Imm gran abs 0.0 0.0 - 0.1 K/cumm [facility] Lymphocyte abs 1.5 0.8 - 3.3 K/cumm [facility] Monocyte abs 0.6 0.2 - 0.8 K/cumm [facility] Eosinophil abs 0.2 0.0 - 0.5 K/cumm [facility] Basophil abs 0.1 0.0 - 0.1 K/cumm [facility] Neutrophil pct 60.4 % [facility] Comment: Interpretive Data Percent cell count reference ranges are not reported, since discordance with absolute values may lead to misinterpretation of CBC data. Current Interpretive Data was last revised on 2018. Imm gran pct 0.5 % [facility] Comment: Interpretive Data Percent cell count reference ranges are not reported, since discordance with absolute values may lead to misinterpretation of CBC data. Current Interpretive Data was last revised on 2018. Lymphocyte pct 25.3 % [facility] Comment: Interpretive Data Percent cell count reference ranges are not reported, since discordance with absolute values may lead to misinterpretation of CBC data. Current Interpretive Data was last revised on 2018. Monocyte pct 10.2 % [facility] Comment: Interpretive Data Percent cell count reference ranges are not reported, since discordance with absolute values may lead to misinterpretation of CBC data. Current Interpretive Data was last revised on 2018. Eosinophil pct 2.6 % [facility] Comment: Interpretive Data Percent cell count reference ranges are not reported, since discordance with absolute values may lead to misinterpretation of CBC data. Current Interpretive Data was last revised on 2018. Basophil pct 1.0 % [facility] Comment: Interpretive Data Percent cell count reference ranges are not reported, since discordance with absolute values may lead to misinterpretation of CBC data. Current Interpretive Data was last revised on 2018. Blood 06/20/2024 12:3 4 AM CDT 06/20/2024 1:05 AM CDT us Deric Wagoner PAN DEVULCANIZER LAB BLOOD ORDERABLES Final Resu lt [facility] [address] [address] Department [place] [address] * (ABNORMAL) Renal function panel (06/20/2024 12:34 AM CDT) Sodium 140 135 - 145 mmol/L Potassium, pl 3.9 3.3 - 4.9 mmol/L [facility] Chloride 103 97 - 110 mmol/L [facility] CO2 27 22 - 32 mmol/L [facility] Anion gap 10 2 - 15 mmol/L [facility] BUN 16 6 - 25 mg/dL [facility] Creatinine 0.80 0.60 - 1.10 mg/dL [facility] Glucose 148 70 - 199 mg/dL [facility] Comment: Interpretive Data Fasting glucose >/= 126 [...] 2022. Calcium 9.1 8.5 - 10.3 mg/dL [facility] Phosphorus, pl 4.4 2.3 - 4.5 mg/dL [facility] Albumin 3.2(L) 3.5 - 5.0 g/dL [facility] Blood 06/20/2024 12:3 4 AM CDT 06/20/2024 1:05 AM CDT Seth Flores MD LAB BLOOD ORDERABLES Final Res ult Performing Organization Address City/[facility]/ZIP Co de Phone Number [facility] [address] [address] [place] [place] [address] * Magnesium (06/20/2024 12:34 AM CDT) [facility] Magnesium 2.0 1.4 - 2.5 mg/dL Blood 06/20/2024 12:3 4 AM CDT 06/20/2024 1:05 AM CDT Rachel Barnes PAN DEVULCANIZER LAB BLOOD ORDERABLES Ayanna l Result Performing Organization Address [facility] de Phone Number [facility] [address] [address] [place] [address] * (ABNORMAL) CBC with auto differential (06/20/2024 12:34 AM CDT) Pathologist [facility] WBC 5.9 3.8 - 9.9 K/cumm Hgb 12.1 11.9 - 15.5 g/dL [facility] Hct 38.5 35.6 - 45.5 % [facility] Plt 269 150 - 400 K/cumm [facility] MPV 9.5 9.1 - 12.3 fL [facility] RBC 3.79(L) 3.90 - 5.20 M/cumm [facility] MCV 101.6(H) 81.3 - 96.4 fL [facility] MCH 31.9 27.1 - 33.3 pg [facility] MCHC 31.4(L) 32.3 - 35.7 g/dL [facility] RDW CV 12.8 11.1 - 14.9 % [facility] RDW SD 47.7 35.7 - 48.1 fL [facility] NRBC abs 0.00 0.00 - 0.01 K/cumm [facility] Blood 06/20/2024 12:3 4 AM CDT 06/20/2024 1:05 AM CDT Deric Wagoner PAN DEVULCANIZER LAB BLOOD ORDERABLES Final Resu lt Performing Organization Address [facility] Co de Phone Number ZAKIYAIZZY [address] [address] [facility] [place] [address] * POCT glucose (06/19/2024 8:54 PM CDT) Glucose, POC 173 70 - 199 mg/dL Blood 06/19/2024 8:54 PM CDT 06/19/2024 8:54 PM CDT Mell Curran MD LAB POCT ORDERABLES - DEVIC E Final Result Performing Organization Address [facility] de Phone Number OLAMIDE [phone] [address] [facility] [place] [address] * (ABNORMAL) POCT glucose (06/19/2024 6:33 PM CDT) Glucose, POC 220(H) 70 - 199 mg/dL Blood 06/19/2024 6:33 PM CDT 06/19/2024 6:33 PM CDT Mell Curran MD LAB POCT ORDERABLES - DEVIC E Final Result Performing Organization Address [facility] de Phone Number ZAKIYAIZZY [address] [address] [facility] [place] [address] * POCT glucose (06/19/2024 11:13 AM CDT) Glucose, POC 165 70 - 199 mg/dL Blood 06/19/2024 11:1 3 AM CDT 06/19/2024 11:13 AM CDT Mell Curran MD LAB POCT ORDERABLES - DEVIC E Final Result Performing Organization Address [facility] Co de Phone Number OLAMIDE CAR [address] [address] [place] [place] [address] * POCT glucose (06/19/2024 6:29 AM CDT) Glucose, POC 154 70 - 199 mg/dL Blood 06/19/2024 6:29 AM CDT 06/19/2024 6:29 AM CDT Mell Curran MD LAB POCT ORDERABLES - DEVIC E Final Result Performing Organization Address [facility] Phone Number OLAMIDE CAR [address] [place] [place] [address] * eGFR (06/19/2024 4:29 AM CDT) eGFR >90 >=60 mL/min/1. 73 [...] interpretive data was last reviewed 2021. Blood 06/19/2024 4:29 AM CDT 06/19/2024 6:14 AM CDT us Seth Flores MD LAB BLOOD ORDERABLES Final Res ult [facility] [address] [address] Department [place] [address] * (ABNORMAL) Renal function panel (06/19/2024 4:29 AM CDT) Sodium 138 135 - 145 mmol/L Potassium, pl 3.9 3.3 - 4.9 mmol/L [facility] Chloride 101 97 - 110 mmol/L [facility] CO2 25 22 - 32 mmol/L [facility] Anion gap 12 2 - 15 mmol/L [facility] BUN 17 6 - 25 mg/dL [facility] Creatinine 0.70 0.60 - 1.10 mg/dL [facility] Glucose 132 70 - 199 mg/dL [facility] Comment: Interpretive Data Fasting glucose >/= 126 [...] Calcium 9.2 8.5 - 10.3 mg/dL [facility] Phosphorus, pl 4.0 2.3 - 4.5 mg/dL [facility] Albumin 3.2(L) 3.5 - 5.0 g/dL [facility] Blood 06/19/2024 4:29 AM CDT 06/19/2024 6:14 AM CDT us Seth Flores MD LAB BLOOD ORDERABLES Final Res ult Performing Organization Address [facility]/State/ZIP Co de Phone Number OLAMIDE [phone] [address] [facility] [place] [address] * Magnesium (06/19/2024 4:29 AM CDT) Magnesium 1.8 1.4 - 2.5 mg/dL Blood 06/19/2024 4:29 AM CDT 06/19/2024 6:14 AM CDT Rachel Barnes PAN DEVULCANIZER LAB BLOOD ORDERABLES Ayanna l Result Performing Organization Address [facility] Co de Phone Number [facility] [address] [address] [facility] [place] [address] * POCT glucose (06/18/2024 8:27 PM CDT) Glucose, POC 190 70 - 199 mg/dL Blood 06/18/2024 8:27 PM CDT 06/18/2024 8:27 PM CDT Mell Curran MD LAB POCT ORDERABLES - DEVIC E Final Result Performing Organization Address [facility] Co de Phone [facility] [address] [address] [place] [address] * POCT glucose (06/18/2024 5:03 PM CDT) Glucose, POC 139 70 - 199 mg/dL Blood 06/18/2024 5:03 PM CDT 06/18/2024 5:03 PM CDT Mell Curran MD LAB POCT ORDERABLES - DEVIC E Final Result Performing Organization Address City/[facility]/ZIP Co de Phone Number [facility] [address] [address] [facility] [place] [address] * (ABNORMAL) POCT glucose (06/18/2024 11:30 AM CDT) Glucose, POC 277(H) 70 - 199 mg/dL Blood 06/18/2024 11:3 0 AM CDT 06/18/2024 11:30 AM CDT Result [facility] Mell Curran MD LAB POCT ORDERABLES - DEVIC E Final Result Performing Organization Address [facility] de Phone Number OLAMIDE [address] [address] [facility] [place] [address] * POCT glucose (06/18/2024 6:50 AM CDT) Glucose, POC 161 70 - 199 mg/dL Blood 06/18/2024 6:50 AM CDT 06/18/2024 6:50 AM CDT Result [facility] Mell Curran MD LAB POCT ORDERABLES - DEVIC E Final Result Performing Organization Address [facility] de Phone Number OLAMIDE [phone] [address] [facility] [employer] [place], [place] [id number] * POCT glucose (06/18/2024 2:04 AM CDT) Glucose, POC 179 70 - 199 mg/dL Blood 06/18/2024 2:04 AM CDT 06/18/2024 2:04 AM CDT Result [facility] Mell Curran MD LAB POCT ORDERABLES - DEVIC E Final Result Performing Organization Address [facility] de Phone Number OLAMIDE [address] [address] [facility] [employer] [place], [place] [id number] * eGFR (06/17/2024 11:51 PM CDT) eGFR 79 >=60 mL/min/1. 73 [...] interpretive data was last reviewed 2021. Blood 06/17/2024 11:5 1 PM CDT 06/18/2024 12:22 AM CDT us Seth Flores MD LAB BLOOD ORDERABLES Final Res ult [facility] [address] [address] Department [place] [address] * (ABNORMAL) Renal function panel (06/17/2024 11:51 PM CDT) Sodium 136 135 - 145 mmol/L Potassium, pl 4.5 3.3 - 4.9 mmol/L [facility] Chloride 100 97 - 110 mmol/L [facility] CO2 26 22 - 32 mmol/L [facility] Anion gap 10 2 - 15 mmol/L [facility] BUN 20 6 - 25 mg/dL [facility] Creatinine 0.84 0.60 - 1.10 mg/dL [facility] Glucose 208(H) 70 - 199 mg/dL [facility] Comment: Interpretive Data Fasting glucose >/= 126 [...] 2022. Calcium 9.1 8.5 - 10.3 mg/dL [facility] Phosphorus, pl 3.2 2.3 - 4.5 mg/dL [facility] Albumin 3.3(L) 3.5 - 5.0 g/dL [facility] Blood 06/17/2024 11:5 1 PM CDT 06/18/2024 12:22 AM CDT Seth Flores MD LAB BLOOD ORDERABLES Final Res ult Performing Organization Address City/[facility]/ZIP Co de Phone Number [facility] [address] [address] [place] [address] * Magnesium (06/17/2024 11:51 PM CDT) Pathologist [facility] Magnesium 1.9 1.4 - 2.5 mg/dL Blood 06/17/2024 11:5 1 PM CDT 06/18/2024 12:22 AM CDT Rachel Barnes NP LAB BLOOD ORDERABLES Ayanna l Result Performing Organization Address [facility]/ZIP Co de Phone Number [facility] [address] [address] [place] [address] * (ABNORMAL) POCT glucose (06/17/2024 8:08 PM CDT) Glucose, POC 231(H) 70 - 199 mg/dL Blood 06/17/2024 8:08 PM CDT 06/17/2024 8:08 PM CDT Mell Curran MD LAB POCT ORDERABLES - DEVIC E Final Result Performing Organization Address [facility] Co de Phone Number OLAMIDE JOCELINE [address] [address] [facility] [place] [address] * POCT glucose (06/17/2024 4:37 PM CDT) Glucose, POC 146 70 - 199 mg/dL Blood 06/17/2024 4:37 PM CDT 06/17/2024 4:37 PM CDT Mell Curran MD LAB POCT ORDERABLES - DEVIC E Final Result Performing Organization Address [facility] Co de Phone Number OLAMIDE CAR [address] [place] [address] * (ABNORMAL) POCT glucose (06/17/2024 11:38 AM CDT) Glucose, POC 220(H) 70 - 199 mg/dL Blood 06/17/2024 11:3 8 AM CDT 06/17/2024 11:38 AM CDT Mell Curran MD LAB POCT ORDERABLES - DEVIC E Final Result Performing Organization Address [facility] Co de Phone Number OLAMIDE CAR [address] [place] [address] * POCT glucose (06/17/2024 6:45 AM CDT) Glucose, POC 167 70 - 199 mg/dL Blood 06/17/2024 6:45 AM CDT 06/17/2024 6:45 AM CDT Mell Curran MD LAB POCT ORDERABLES - DEVIC E Final Result Performing Organization Address [facility] Co de Phone Number OLAMIDE CAR [address] [address] Department [place] [address] * POCT glucose (06/17/2024 2:19 AM CDT) Glucose, POC 195 70 - 199 mg/dL Blood 06/17/2024 2:19 AM CDT 06/17/2024 2:19 AM CDT Mell Curran MD LAB POCT ORDERABLES - DEVIC E Final Result OLAMIDE [address] [address] [facility] [place] [address] * eGFR (06/17/2024 12:15 AM CDT) eGFR >90 >=60 mL/min/1. 73 [...] interpretive data was last reviewed 2021. Blood 06/17/2024 12:1 5 AM CDT 06/17/2024 12:42 AM CDT us Seth Flores MD LAB BLOOD ORDERABLES Final Res ult OLAMIDE CAR [address] [address] [place] [place] [address] * (ABNORMAL) Renal function panel (06/17/2024 12:15 AM CDT) Pathologist [facility] Sodium 136 135 - 145 mmol/L Potassium, pl 4.5 3.3 - 4.9 mmol/L [facility] Chloride 101 97 - 110 mmol/L [facility] CO2 26 22 - 32 mmol/L [facility] Anion gap 9 2 - 15 mmol/L [facility] BUN 18 6 - 25 mg/dL [facility] Creatinine 0.70 0.60 - 1.10 mg/dL [facility] Glucose 215(H) 70 - 199 mg/dL [facility] Comment: Interpretive Data Fasting glucose >/= 126 [...] Calcium 9.2 8.5 - 10.3 mg/dL [facility] Phosphorus, pl 3.0 2.3 - 4.5 mg/dL [facility] Albumin 3.3(L) 3.5 - 5.0 g/dL [facility] Blood 06/17/2024 12:1 5 AM CDT 06/17/2024 12:42 AM CDT us Seth Flores MD LAB BLOOD ORDERABLES Final Res ult OLAMIDE CAR [address] [address] [facility] [place], [place] [phone] * Magnesium (06/17/2024 12:15 AM CDT) Magnesium 2.0 1.4 - 2.5 mg/dL Blood 06/17/2024 12:1 5 AM CDT 06/17/2024 12:42 AM CDT Rachel Barnes PAN DEVULCANIZER LAB BLOOD ORDERABLES Ayanna l Result Performing Organization Address City/[facility]/ZIP Co de Phone Number OLAMIDE [phone] [address] [place] [address] * (ABNORMAL) POCT glucose (06/16/2024 8:02 PM CDT) Glucose, POC 289(H) 70 - 199 mg/dL Blood 06/16/2024 8:02 PM CDT 06/16/2024 8:02 PM CDT Mell Curran MD LAB POCT ORDERABLES - DEVIC E Final Result Performing Organization Address [facility] Co de Phone Number OLAMIDE JOCELINE [address] [address] [facility] [place] [address] * (ABNORMAL) POCT glucose (06/16/2024 4:04 PM CDT) Glucose, POC 216(H) 70 - 199 mg/dL Blood 06/16/2024 4:04 PM CDT 06/16/2024 4:04 PM CDT Mell Curran MD LAB POCT ORDERABLES - DEVIC E Final Result Performing Organization Address [facility] Co de Phone [facility] [address] [address] [facility] [place] [address] * (ABNORMAL) POCT glucose (06/16/2024 11:59 AM CDT) Glucose, POC 223(H) 70 - 199 mg/dL Blood 06/16/2024 11:5 9 AM CDT 06/16/2024 11:59 AM CDT us Mell Curran MD LAB POCT ORDERABLES - DEVIC E Final Result Performing Organization Address [facility] de Phone Number OLAMIDE [phone] [address] [facility] [place] [address] * POCT glucose (06/16/2024 6:28 AM CDT) Glucose, POC 128 70 - 199 mg/dL Blood 06/16/2024 6:28 AM CDT 06/16/2024 6:28 AM CDT Mell Curran MD LAB POCT ORDERABLES - DEVIC E Final Result Performing Organization Address [facility] Phone Number OLAMIDE [phone] [address] [place] [address] * eGFR (06/16/2024 2:41 AM CDT) eGFR >90 >=60 mL/min/1. 73 [...] interpretive data was last reviewed 2021. Blood 06/16/2024 2:41 AM CDT 06/16/2024 2:56 AM CDT us Seth Flores MD LAB BLOOD ORDERABLES Final Res ult [facility] [address] [address] [facility] [place] [address] * (ABNORMAL) Renal function panel (06/16/2024 2:41 AM CDT) Sodium 138 135 - 145 mmol/L Potassium, pl 4.1 3.3 - 4.9 mmol/L [facility] Chloride 104 97 - 110 mmol/L [facility] CO2 24 22 - 32 mmol/L [facility] Anion gap 10 2 - 15 mmol/L [facility] BUN 15 6 - 25 mg/dL [facility] Creatinine 0.70 0.60 - 1.10 mg/dL [facility] Glucose 130 70 - 199 mg/dL [facility] Comment: Interpretive Data Fasting glucose >/= 126 [...] 2022. Calcium 9.0 8.5 - 10.3 mg/dL [facility] Phosphorus, pl 3.1 2.3 - 4.5 mg/dL [facility] Albumin 3.2(L) 3.5 - 5.0 g/dL [facility] Blood 06/16/2024 2:41 AM CDT 06/16/2024 2:56 AM CDT Seth Flores MD LAB BLOOD ORDERABLES Final Res ult Performing Organization Address [facility] Co de Phone Number OLAMIDE CAR [address] [address] [facility] [place] [address] * Magnesium (06/16/2024 2:41 AM CDT) Magnesium 2.0 1.4 - 2.5 mg/dL Blood 06/16/2024 2:41 AM CDT 06/16/2024 2:56 AM CDT Rachel aBrnes PAN DEVULCANIZER LAB BLOOD ORDERABLES Ayanna l Result Performing Organization Address [facility] Co de Phone Number OLAMIDE [address] [address] [facility] [place] [address] * POCT glucose (06/15/2024 7:37 PM CDT) Glucose, POC 147 70 - 199 mg/dL Blood 06/15/2024 7:37 PM CDT 06/15/2024 7:37 PM CDT Mell Curran MD LAB POCT ORDERABLES - DEVIC E Final Result Performing Organization Address [facility] Co de Phone Number OLAMIDE [address] [address] [facility] [place] [address] * POCT glucose (06/15/2024 4:31 PM CDT) Glucose, POC 145 70 - 199 mg/dL Blood 06/15/2024 4:31 PM CDT 06/15/2024 4:31 PM CDT Mell Curran MD LAB POCT ORDERABLES - DEVIC E Final Result Performing Organization Address [facility]/ZIP Co de Phone Number OLAMIDE CAR [address] [address] [facility] [place] [address] * (ABNORMAL) POCT glucose (06/15/2024 11:41 AM CDT) Glucose, POC 289(H) 70 - 199 mg/dL Blood 06/15/2024 11:4 1 AM CDT 06/15/2024 11:41 AM CDT Mell Curran MD LAB POCT ORDERABLES - DEVIC E Final Result Performing Organization Address [facility] de Phone Number OLAMIDE CAR [address] [address] [facility] [place] [address] * POCT glucose (06/15/2024 8:10 AM CDT) Glucose, POC 123 70 - 199 mg/dL Blood 06/15/2024 8:10 AM CDT 06/15/2024 8:10 AM CDT Mell Curran MD LAB POCT ORDERABLES - DEVIC E Final Result Performing Organization Address [facility] de Phone Number OLAMIDE CAR [address] [address] [facility] [employer] [place], [place] [id number] * eGFR (06/15/2024 6:09 AM CDT) eGFR >90 >=60 mL/min/1. 73 [...] interpretive data was last reviewed 2021. Blood 06/15/2024 6:09 AM CDT 06/15/2024 6:16 AM CDT us Seth Flores MD LAB BLOOD ORDERABLES Final Res ult [facility] [address] [address] [facility] [place] [address] * (ABNORMAL) Renal function panel (06/15/2024 6:09 AM CDT) Sodium 136 135 - 145 mmol/L Potassium, pl 4.1 3.3 - 4.9 mmol/L [facility] Chloride 103 97 - 110 mmol/L [facility] CO2 26 22 - 32 mmol/L [facility] Anion gap 7 2 - 15 mmol/L [facility] BUN 16 6 - 25 mg/dL [facility] Creatinine 0.72 0.60 - 1.10 mg/dL [facility] Glucose 137 70 - 199 mg/dL [facility] Comment: Interpretive Data Fasting glucose >/= 126 [...] 2022. Calcium 8.9 8.5 - 10.3 mg/dL [facility] Phosphorus, pl 4.0 2.3 - 4.5 mg/dL [facility] Albumin 3.0(L) 3.5 - 5.0 g/dL [facility] Blood 06/15/2024 6:09 AM CDT 06/15/2024 6:15 AM CDT Seth Folres MD LAB BLOOD ORDERABLES Final Res ult Performing Organization Address [facility] Co de Phone Number [facility] [address] [facility] [place] [address] * Magnesium (06/15/2024 6:09 AM CDT) Magnesium 1.9 1.4 - 2.5 mg/dL Blood 06/15/2024 6:09 AM CDT 06/15/2024 6:15 AM CDT Rachel Barnes PAN DEVULCANIZER LAB BLOOD ORDERABLES Ayanna l Result Performing Organization Address [facility] Co de Phone Number [facility] [address] [address] [facility] [place] [address] * (ABNORMAL) POCT glucose (06/14/2024 8:43 PM CDT) Glucose, POC 221(H) 70 - 199 mg/dL Blood 06/14/2024 8:43 PM CDT 06/14/2024 8:43 PM CDT Mell Curran MD LAB POCT ORDERABLES - DEVIC E Final Result Performing Organization Address [facility] Co de Phone Number [facility] [address] [address] [facility] [employer] [place], [place] [id number] * (ABNORMAL) POCT glucose (06/14/2024 5:46 PM CDT) Glucose, POC 233(H) 70 - 199 mg/dL Blood 06/14/2024 5:46 PM CDT 06/14/2024 5:46 PM CDT Mell Curran MD LAB POCT ORDERABLES - DEVIC E Final Result Performing Organization Address City/[facility]/ZIP Co de Phone Number OLAMIDE CAR [address] [address] [facility] [place] [address] * (ABNORMAL) Urinalysis reflex to microscopic and culture Urine, clean voided (06/14/2024 2:15 PM CDT) Color, ur Yellow Yellow Clarity, ur Clear Clear [facility] Specific gravity, ur 1.019 1.003 - 1.030 [facility] pH, urine 6.5 [facility] Comment: Interpretive Data ? Urine pH is affected by diet, medications, systemic acid-base disturbances, and renal tubular function. ??pH may affect urinary stone formation. ??For example, urine pH below 6.0 may help reduce the tendency for calcium phosphate stones and pH greater than 6.0 may reduce the tendency for uric acid stone formation. Source: [facility] [employer] Current Interpretive Data was last revised on 2017 Protein, ur ql Negative Negative [facility] Glucose, ur ql 3+(A) Negative [facility] Ketones, ur Negative Negative [facility] Bilirubin, ur Negative Negative [facility] Blood, ur Negative Negative [facility] Urobilinogen, ur <2.0 <2.0 mg/dL [facility] Nitrite, ur Negative Negative [facility] Leukocyte esterase, ur Negative Negative [facility] UA reflex comment Reflex conditions for microscopic UA and culture not met. CERNER CH Urine, clean voided 06/14/2024 2:15 PM CDT 06/14/2024 2:22 PM CDT Mell Curran MD LAB MICROBIOLOGY - GENERAL ORDERABLES Final Result [facility] [address] Department [place] [address] * CT Head WO Contrast (06/14/2024 1:03 PM CDT) Anatomical Region Laterality Modality Head and Neck N/A Computed Tomogra phy 06/14/2024 1:10 PM CDT Impressions 06/14/2024 1:10 PM CDT No acute intracranial pathology. Electronically signed by: Jazmin Rahman M.D. Narrative 06/14/2024 1:10 PM CDT Examination: ??CT HEAD WO CONTRAST Date: 06/14/2024 12:55 PM Clinical History: Syncope, simple, normal neuro exam S/P Fall from syncope , AMS Technique: Noncontrast CT head with 2-D reformatted views was obtained. Comparison:CT head 05/29/2024.. Findings: The ventricles sulci and cisterns are ??mildly enlarged with patchy decreased attenuation the periventricular and deep white matter again noted. . The hahn-white matter differentiation is preserved. No acute intracranial hemorrhage, midline shift, or mass effect is seen. The imaged orbits are not remarkable. Visualized sinuses are clear.The mastoid and middle ear cavity are clear. The calvarium is intact. Procedure Note Jazmin Rahman MD - 06/14/2024 Examination: CT HEAD WO CONTRAST Date: 06/14/2024 12:55 PM Clinical History: Syncope, simple, normal neuro exam S/P Fall from syncope , AMS Technique: Noncontrast CT head with 2-D reformatted views was obtained. Comparison:CT head 05/29/2024.. Findings: The ventricles sulci and cisterns are mildly enlarged with patchy decreased attenuation the periventricular and deep white matter again noted. . The hahn-white matter differentiation is preserved. No acute intracranial hemorrhage, midline shift, or mass effect is seen. The imaged orbits are not remarkable. Visualized sinuses are clear.The mastoid and middle ear cavity are clear. The calvarium is intact. IMPRESSION: No acute intracranial pathology. Electronically signed by: Jazmin Rahman M.D. Mell Curran MD IM CT PROCEDURES Final Res ult * POCT glucose (06/14/2024 12:23 PM CDT) Glucose, POC 187 70 - 199 mg/dL Blood 06/14/2024 12:2 3 PM CDT 06/14/2024 12:23 PM CDT Mell Curran MD LAB POCT ORDERABLES - DEVIC E Final Result [facility] [address] Department [place] [address] * XR Chest 1 View (06/14/2024 12:22 PM CDT) Anatomical Region Laterality Modality Body, Chest N/A Computed Radiogr aphy 06/14/2024 12:2 8 PM CDT Impressions 06/14/2024 12:28 PM CDT Cardiomegaly with left AICD and right perihilar/lower lobe wire-like foreign body. No acute pulmonary disease. Electronically signed by: Jazmin Rahman M.D. Narrative 06/14/2024 12:28 PM CDT Examination: XR CHEST 1 VIEW Date: 06/14/2024 11:50 AM History: fever Comparison: 06/06/2024. Findings: Suboptimal inflation is seen. Cardiomegaly and left AICD with right atrial and ventricular leads again noted. ??Right upper extremity PICC line is seen in the SVC. ??Curvilinear wire-like metallic foreign body is again seen overlying the right hilum and lower lobe. ??No interval consolidation or effusion is seen. Underpenetration due to breast shadow limits assessment of the left retrocardiac region. Procedure Note Jazmin Rahman MD - 06/14/2024 Examination: XR CHEST 1 VIEW Date: 06/14/2024 11:50 AM History: fever Comparison: 06/06/2024. Findings: Suboptimal inflation is seen. Cardiomegaly and left AICD with right atrial and ventricular leads again noted. Right upper extremity PICC line is seen in the SVC. Curvilinear wire-like metallic foreign body is again seen overlying the right hilum and lower lobe. No interval consolidation or effusion is seen. Underpenetration due to breast shadow limits assessment of the left retrocardiac region. IMPRESSION: Cardiomegaly with left AICD and right perihilar/lower lobe wire-like foreign body. No acute pulmonary disease. Electronically signed by: Jazmin Rahman M.D. Eben Pettit MD IMG XR PROCEDURES Final Result * POCT glucose (06/14/2024 7:49 AM CDT) Glucose, POC 193 70 - 199 mg/dL Blood 06/14/2024 7:49 AM CDT 06/14/2024 7:49 AM CDT Mell Curran MD LAB POCT ORDERABLES - DEVIC E Final Result Performing Organization Address City/State/[facility] Phone Number [facility] [address] [address] Department [place] [address] * eGFR (06/14/2024 4:35 AM CDT) eGFR >90 >=60 mL/min/1. 73 [...] interpretive data was last reviewed 2021. Blood 06/14/2024 4:35 AM CDT 06/14/2024 4:43 AM CDT us Seth Flores MD LAB BLOOD ORDERABLES Final Res ult [facility] [address] [address] Department [place] [address] * (ABNORMAL) Renal function panel (06/14/2024 4:35 AM CDT) Sodium 137 135 - 145 mmol/L Potassium, pl 4.1 3.3 - 4.9 mmol/L CERNER Chloride 103 97 - 110 mmol/L [facility] CH CO2 27 22 - 32 mmol/L [facility] Anion gap 7 2 - 15 mmol/L [facility] BUN 11 6 - 25 mg/dL [facility] Creatinine 0.67 0.60 - 1.10 mg/dL [facility] Glucose 185 70 - 199 mg/dL [facility] Comment: Interpretive Data Fasting glucose >/= 126 [...] Calcium 9.2 8.5 - 10.3 mg/dL [facility] CH Phosphorus, pl 3.6 2.3 - 4.5 mg/dL [facility] CH Albumin 3.0(L) 3.5 - 5.0 g/dL CERNER Blood 06/14/2024 4:35 AM CDT 06/14/2024 4:43 AM CDT Seth Flores MD LAB BLOOD ORDERABLES Final Res ult Performing Organization Address City/[facility]/ZIP Co de Phone Number [facility] [address] [address] [facility] [place] [address] * Magnesium (06/14/2024 4:35 AM CDT) Magnesium 2.0 1.4 - 2.5 mg/dL Blood 06/14/2024 4:35 AM CDT 06/14/2024 4:43 AM CDT Rachel Barnes PAN DEVULCANIZER LAB BLOOD ORDERABLES Ayanna l Result Performing Organization Address [facility] Co de Phone Number OLAMIDE [phone] [address] [place] [address] * POCT glucose (06/13/2024 8:05 PM CDT) Glucose, POC 141 70 - 199 mg/dL Blood 06/13/2024 8:05 PM CDT 06/13/2024 8:05 PM CDT Mell Curran MD LAB POCT ORDERABLES - DEVIC E Final Result Performing Organization Address [facility] Co de Phone Number OL[facility]IDE [phone] [address] [place] [address] * POCT glucose (06/13/2024 4:16 PM CDT) Glucose, POC 70 70 - 199 mg/dL Blood 06/13/2024 4:16 PM CDT 06/13/2024 4:16 PM CDT Mell Curran MD LAB POCT ORDERABLES - DEVIC E Final Result Performing Organization Address City/[facility] Co de Phone Number [facility] [address] [address] Department [place] [address] * Blood culture Blood (06/13/2024 2:31 PM CDT) Report Final Report: No growth Comment:Testing performed by : [facility], [address] [place]., [address] Blood 06/13/2024 2:31 PM CDT 06/13/2024 6:25 PM CDT [facility] - 06/18/2024 7:00 AM CDT From a different site [...] organism identification may be performed using the Verigene Gram-Positive Blood Culture Assay. This assay detects microbial DNA in positive blood culture broth via hybridization of target DNA to capture oligonucleotides on a microarray. This assay has been cleared by the [place] Food and Drug Administration and its performance characteristics have been verified by the [facility]. 5. ?For questions about this culture, contact the Microbiology Laboratory at [phone]. Interpretive data was last revised on 2020. Eben Pettit MD LAB MICROBIOLOGY - GENERAL ORDER DONATO Final Result Performing Organization Address City/[facility] Co de Phone Number [facility] [address] [address] Department [place] [address] * Blood culture Blood (06/13/2024 2:31 PM CDT) Report Final Report: No growth Comment:Testing performed by : [facility], [address] [facility], [place]., [address] Blood 06/13/2024 2:31 PM CDT 06/13/2024 6:25 PM CDT Narrative OL[facility] CAR - 06/18/2024 7:00 AM CDT Collection->Peripheral 1. ?Blood cultures [...] organism identification may be performed using the Affirmigene Gram-Positive Blood Culture Assay. This assay detects microbial DNA in positive blood culture broth via hybridization of target DNA to capture oligonucleotides on a microarray. This assay has been cleared by the [place] Food and Drug Administration and its performance characteristics have been verified by the [facility]. 5. ?For questions about this culture, contact the Microbiology Laboratory at [phone]. Interpretive data was last revised on 2020. Eben Pettit MD LAB MICROBIOLOGY - GENERAL ORDER DONATO Final Result [facility] [address] [address] Department [place] [address] * (ABNORMAL) POCT glucose (06/13/2024 11:38 AM CDT) Glucose, POC 251(H) 70 - 199 mg/dL Blood 06/13/2024 11:3 8 AM CDT 06/13/2024 11:38 AM CDT Mell Curran MD LAB POCT ORDERABLES - DEVIC E Final Result Performing Organization Address [facility] Co de Phone Number OL[facility] CAR [address] [address] [facility] [place] [address] * (ABNORMAL) POCT glucose (06/13/2024 7:30 AM CDT) Glucose, POC 201(H) 70 - 199 mg/dL Blood 06/13/2024 7:30 AM CDT 06/13/2024 7:30 AM CDT Mell Curran MD LAB POCT ORDERABLES - DEVIC E Final Result Performing Organization Address [facility] de Phone Number OL[facility]IDE CAR [address] [address] [facility] [place] [address] * eGFR (06/13/2024 2:59 AM CDT) eGFR >90 >=60 mL/min/1. 73 [...] interpretive data was last reviewed 2021. Blood 06/13/2024 2:59 AM CDT 06/13/2024 3:30 AM CDT us Seth Flores MD LAB BLOOD ORDERABLES Final Res ult [facility] [address] [address] Department [place] [address] * (ABNORMAL) Renal function panel (06/13/2024 2:59 AM CDT) Sodium 140 135 - 145 mmol/L Potassium, pl 3.9 3.3 - 4.9 mmol/L [facility] Chloride 104 97 - 110 mmol/L [facility] CO2 28 22 - 32 mmol/L [facility] Anion gap 8 2 - 15 mmol/L [facility] BUN 11 6 - 25 mg/dL [facility] Creatinine 0.64 0.60 - 1.10 mg/dL [facility] Glucose 149 70 - 199 mg/dL [facility] Comment: Interpretive Data Fasting glucose >/= 126 [...] Calcium 9.2 8.5 - 10.3 mg/dL [facility] Phosphorus, pl 3.6 2.3 - 4.5 mg/dL [facility] Albumin 3.2(L) 3.5 - 5.0 g/dL [facility] Blood 06/13/2024 2:59 AM CDT 06/13/2024 3:30 AM CDT us Seth Flores MD LAB BLOOD ORDERABLES Final Res ult [address] [address] [address] [place] [address] * Magnesium (06/13/2024 2:59 AM CDT) Magnesium 2.0 1.4 - 2.5 mg/dL Blood 06/13/2024 2:59 AM CDT 06/13/2024 3:30 AM CDT us Rachel Barnes PAN DEVULCANIZER LAB BLOOD ORDERABLES Ayanna l Result Performing Organization Address [facility] Co de Phone Number [facility] [address] [address] [facility] [place] [address] * POCT glucose (06/12/2024 8:07 PM CDT) Glucose, POC 135 70 - 199 mg/dL Blood 06/12/2024 8:07 PM CDT 06/12/2024 8:07 PM CDT us Coleen Samuels MD LAB POCT ORDERABLES - DEV ICE Final Result Performing Organization Address [facility] Co de Phone Number [facility] [address] [address] [facility] [employer] [place], [place] [id number] * POCT glucose (06/12/2024 5:10 PM CDT) Glucose, POC 195 70 - 199 mg/dL Blood 06/12/2024 5:10 PM CDT 06/12/2024 5:10 PM CDT us Coleen Samuels MD LAB POCT ORDERABLES - DEV ICE Final Result Performing Organization Address [facility] Co de Phone Number OL[facility] CAR [address] [address] [facility] [place] [address] * (ABNORMAL) POCT glucose (06/12/2024 12:02 PM CDT) Glucose, POC 200(H) 70 - 199 mg/dL Blood 06/12/2024 12:0 2 PM CDT 06/12/2024 12:02 PM CDT us Coleen Samuels MD LAB POCT ORDERABLES - DEV ICE Final Result Performing Organization Address [facility] de Phone Number ZAKIYAIZZY CAR [address] [address] [facility] [place] [address] * POCT glucose (06/12/2024 7:36 AM CDT) Glucose, POC 145 70 - 199 mg/dL Blood 06/12/2024 7:36 AM CDT 06/12/2024 7:36 AM CDT Coleen Samuels MD LAB POCT ORDERABLES - DEV ICE Final Result Performing Organization Address [facility] de Phone Number ZAKIYAIZZY CAR [address] [address] [facility] [place] [address] * (ABNORMAL) Urinalysis, microscopic only (06/12/2024 6:46 AM CDT) WBC, ur 0-5 0 - 5 /HPF RBC, ur 11-20(A) 0 - 2 /HPF [facility] Epithelial cells, squamous, ur 1-5 0 - 5 /HPF [facility] Culture Reflex Comment Reflex conditions for urine culture (WBC >10) not met. [facility] Urine 06/12/2024 6:46 AM CDT 06/12/2024 6:57 AM CDT us Seth Flores MD LAB URINE ORDERABLES Final Res ult Performing Organization Address [facility] de Phone Number [facility] CAR [address] [facility] [place] [address] * Chloride, urine, random (06/12/2024 6:46 AM CDT) Chloride, ur 78 mmol/L Comment: Interpretive Data No reference range established. Current interpretive data was last revised 2019. Urine (Urine, Clean Catch) 06/12/2024 6:46 AM CDT 06/12/2024 6:57 AM CDT us Seth Flores MD LAB URINE ORDERABLES Final Res ult Performing Organization Address [facility] de Phone Number [facility] [address] [place] [address] * Potassium, urine, random (06/12/2024 6:46 AM CDT) Potassium conc, ur 43.4 mmol/L Comment: Interpretive Data No reference range established. Current interpretive data was last revised 2019. Urine (Urine, Clean Catch) 06/12/2024 6:46 AM CDT 06/12/2024 6:57 AM CDT us Seth Flores MD LAB URINE ORDERABLES Final Res ult Performing Organization Address [facility] de Phone Number [facility] CAR [address] [address] [facility] [place] [address] * Sodium, urine, random (06/12/2024 6:46 AM CDT) Sodium, ur 105 mmol/L Comment: Interpretive Data No reference range established. Current interpretive data was last revised 2019. Urine (Urine, Clean Catch) 06/12/2024 6:46 AM CDT 06/12/2024 6:57 AM CDT Seth Flores MD LAB URINE ORDERABLES Final Res ult Performing Organization Address [facility] Co de Phone Number [facility] CAR [address] [address] Department [place] [address] * (ABNORMAL) Urinalysis reflex to microscopic and culture Urine (06/12/2024 6:46 AM CDT) Color, ur Yellow Yellow Clarity, ur Clear Clear [facility]ER CH Specific gravity, ur 1.026 1.003 - 1.030 CERNER CH pH, urine [...] tendency for uric acid stone formation. Source: [facility] Current Interpretive Data was last revised on 2017 Protein, ur ql Negative Negative [facility] CH Glucose, ur ql 3+(A) Negative [facility] CH Ketones, ur Negative Negative [facility] CH Bilirubin, ur Negative Negative [facility] CH Blood, ur 2+(A) Negative [facility] CH Urobilinogen, ur <2.0 <2.0 mg/dL [facility] Nitrite, ur Negative Negative [facility] CH Leukocyte esterase, ur Negative Negative [facility]ER CH UA reflex comment Reflex to microscopic UA will be performed. [facility] Urine 06/12/2024 6:46 AM CDT 06/12/2024 6:57 AM CDT us Seth Flores MD LAB MICROBIOLOGY - GENERAL ORD ERABLES Final Result Performing Organization Address [facility]/ZIP Co de Phone Number [facility] CAR [address] [address] Department [place] [address] * Protein / creatinine ratio, urine, random (06/12/2024 6:46 AM CDT) Protein, ur, quant 15.6 mg/dL Comment: Interpretive Data No reference range established. Current interpretive data was last revised 2019. Creatinine Ur 124.9 mg/dL [facility] Comment: Interpretive Data No reference range established. Current interpretive data was last revised 2019. Protein/creatinin e ratio 124.9 0.0 - 180.0 mg/g CR [facility] Urine 06/12/2024 6:46 AM CDT 06/12/2024 6:57 AM CDT Seth Flores MD LAB URINE ORDERABLES Final Res ult [facility] [address] [address] Department [place] [address] * (ABNORMAL) TREMAINE ab ql w/rflx to TREMAINE qn (06/12/2024 6:46 AM CDT) TREMAINE Positive 1:160 Comment: Interpretive Data Normal range for TREMAINE Qualitative Antibody = Negative. 1. TREMAINE is performed using indirect immunofluorescence against HEp-2 cells 2. TREMAINE titers are performed on all positive qualitative results. 3. A significantly positive TREMAINE result is defined as a positive nuclear fluorescence at a titer of 1:80 or greater. 4. 15% of normal people above age 65 have significantly positive TREMAINE results. ??5% or less of normal people age 65 or under have significantly positive TREMAINE results. Current interpretive data was last revised on 2020. Testing performed by: [facility], [address] [place] [address], [place]., [address] TREMAINE, quant 1:160 titer [facility] Comment:Testing performed by : [facility], [address] [place] [address]., [address] TREMAINE, interp Speckled(A) [facility] CAR Comment:Testing performed by : [facility], [address] [place] [address]., [address] Blood 06/12/2024 6:46 AM CDT 06/12/2024 9:47 AM CDT Seth Flores MD LAB BLOOD ORDERABLES Final Res ult Performing Organization Address [facility] Co de Phone Number [facility] CAR [address] [address] [employer] [place], [place] [id number] * eGFR (06/12/2024 3:44 AM CDT) eGFR >90 >=60 mL/min/1. 73 [...] interpretive data was last reviewed 2021. Blood 06/12/2024 3:44 AM CDT 06/12/2024 3:48 AM CDT Seth Flores MD LAB BLOOD ORDERABLES Final Res ult Performing Organization Address [facility]/ZIP Co de Phone Number OL[facility]IDE CAR [address] [address] Department [place] [address] * (ABNORMAL) Renal function panel (06/12/2024 3:44 AM CDT) Sodium 137 135 - 145 mmol/L Potassium, pl 3.8 3.3 - 4.9 mmol/L CERNER Chloride 102 97 - 110 mmol/L [facility] CH CO2 28 22 - 32 mmol/L [facility] Anion gap 7 2 - 15 mmol/L [facility] BUN 15 6 - 25 mg/dL [facility] Creatinine 0.63 0.60 - 1.10 mg/dL [facility] Glucose 154 70 - 199 mg/dL [facility] Comment: Interpretive Data Fasting glucose >/= 126 [...] interpretive data was last revised 2022. Calcium 8.6 8.5 - 10.3 mg/dL [facility] Phosphorus, pl 3.3 2.3 - 4.5 mg/dL [facility] Albumin 3.1(L) 3.5 - 5.0 g/dL [facility] Blood 06/12/2024 3:44 AM CDT 06/12/2024 3:48 AM CDT us Seth Flores MD LAB BLOOD ORDERABLES Final Res ult [facility] [address] [address] Department [place] [address] * Magnesium (06/12/2024 3:44 AM CDT) Pathologist [facility] Magnesium 2.0 1.4 - 2.5 mg/dL Blood 06/12/2024 3:44 AM CDT 06/12/2024 3:48 AM CDT Rachel Barnes NP LAB BLOOD ORDERABLES Ayanna l Result Performing Organization Address [facility]/ZIP Co de Phone Number OL[facility]IDE CAR [address] [address] [facility] [place] [address] * POCT glucose (06/11/2024 7:52 PM CDT) Glucose, POC 132 70 - 199 mg/dL Blood 06/11/2024 7:52 PM CDT 06/11/2024 7:52 PM CDT us Coleen Samuels MD LAB POCT ORDERABLES - DEV ICE Final Result Performing Organization Address [facility] Co de Phone Number OL[facility]IDE CAR [address] [place] [address] * (ABNORMAL) POCT glucose (06/11/2024 5:28 PM CDT) Glucose, POC 208(H) 70 - 199 mg/dL Blood 06/11/2024 5:28 PM CDT 06/11/2024 5:28 PM CDT us Coleen Samuels MD LAB POCT ORDERABLES - DEV ICE Final Result Performing Organization Address [facility] Co de Phone Number OL[facility]IDE CAR [address] [address] [facility] [place] [address] * (ABNORMAL) POCT glucose (06/11/2024 4:08 PM CDT) Glucose, POC 264(H) 70 - 199 mg/dL Blood 06/11/2024 4:08 PM CDT 06/11/2024 4:08 PM CDT us Coleen Samuels MD LAB POCT ORDERABLES - DEV ICE Final Result Performing Organization Address [facility] Co de Phone Number OL[facility]IDE CAR [address] [address] [facility] [place] [address] * POCT glucose (06/11/2024 12:52 PM CDT) Glucose, POC 179 70 - 199 mg/dL Blood 06/11/2024 12:5 2 PM CDT 06/11/2024 12:52 PM CDT Coleen Samuels MD LAB POCT ORDERABLES - DEV ICE Final Result Performing Organization Address [facility] de Phone Number OLAMIDE [address] [address] [facility] [place] [address] * POCT glucose (06/11/2024 8:17 AM CDT) Glucose, POC 152 70 - 199 mg/dL Blood 06/11/2024 8:17 AM CDT 06/11/2024 8:17 AM CDT Coleen Samuels MD LAB POCT ORDERABLES - DEV ICE Final Result Performing Organization Address [facility] de Phone Number OLAMIDE [address] [address] [facility] [place] [address] * Differential, auto (06/11/2024 1:07 AM CDT) [facility] Neutrophil abs 4.0 1.5 - 6.5 K/cumm Imm gran abs 0.0 0.0 - 0.1 K/cumm [facility] Lymphocyte abs 1.3 0.8 - 3.3 K/cumm [facility] Monocyte abs 0.5 0.2 - 0.8 K/cumm [facility] Eosinophil abs 0.1 0.0 - 0.5 K/cumm [facility] Basophil abs 0.1 0.0 - 0.1 K/cumm [facility] Neutrophil pct 65.7 % [facility] Comment: Interpretive Data Percent cell count reference ranges are not reported, since discordance with absolute values may lead to misinterpretation of CBC data. Current Interpretive Data was last revised on 2018. Imm gran pct 0.7 % [facility] Comment: Interpretive Data Percent cell count reference ranges are not reported, since discordance with absolute values may lead to misinterpretation of CBC data. Current Interpretive Data was last revised on 2018. Lymphocyte pct 21.4 % [facility] Comment: Interpretive Data Percent cell count reference ranges are not reported, since discordance with absolute values may lead to misinterpretation of CBC data. Current Interpretive Data was last revised on 2018. Monocyte pct 8.8 % [facility] Comment: Interpretive Data Percent cell count reference ranges are not reported, since discordance with absolute values may lead to misinterpretation of CBC data. Current Interpretive Data was last revised on 2018. Eosinophil pct 2.2 % [facility] Comment: Interpretive Data Percent cell count reference ranges are not reported, since discordance with absolute values may lead to misinterpretation of CBC data. Current Interpretive Data was last revised on 2018. Basophil pct 1.2 % [facility] Comment: Interpretive Data Percent cell count reference ranges are not reported, since discordance with absolute values may lead to misinterpretation of CBC data. Current Interpretive Data was last revised on 2018. Blood 06/11/2024 1:07 AM CDT 06/11/2024 2:55 AM CDT us Rachel Barnes PAN DEVULCANIZER LAB BLOOD ORDERABLES Ayanna vazquez Result [facility] [address] [address] Department [place] [address] * (ABNORMAL) CBC with auto differential (06/11/2024 1:07 AM CDT) WBC 6.0 3.8 - 9.9 K/cumm Hgb 11.5(L) 11.9 - 15.5 g/dL [facility] Hct 35.8 35.6 - 45.5 % [facility] Plt 314 150 - 400 K/cumm [facility] MPV 9.7 9.1 - 12.3 fL [facility] RBC 3.60(L) 3.90 - 5.20 M/cumm [facility] [facility] MCV 99.4(H) 81.3 - 96.4 fL [facility] MCH 31.9 27.1 - 33.3 pg [facility] MCHC 32.1(L) 32.3 - 35.7 g/dL [facility] RDW CV 12.6 11.1 - 14.9 % [facility] RDW SD 45.7 35.7 - 48.1 fL [facility] NRBC abs 0.00 0.00 - 0.01 K/cumm [facility] Blood 06/11/2024 1:07 AM CDT 06/11/2024 2:55 AM CDT us Rachel Barnes PAN DEVULCANIZER LAB BLOOD ORDERABLES Ayanna george Result [facility] [id number] [address] [facility] [place] [address] * eGFR (06/11/2024 1:07 AM CDT) eGFR >90 >=60 mL/min/1. 73 [...] interpretive data was last reviewed 2021. Blood 06/11/2024 1:07 AM CDT 06/11/2024 1:07 AM CDT Rachel Barnes PAN DEVULCANIZER LAB BLOOD ORDERABLES Ayanna l Result [facility] [id number] [address] [facility] [place] [address] * Magnesium (06/11/2024 1:07 AM CDT) Pathologist [facility] Magnesium 2.0 1.4 - 2.5 mg/dL Blood 06/11/2024 1:07 AM CDT 06/11/2024 1:07 AM CDT Rachel Barnes PAN DEVULCANIZER LAB BLOOD ORDERABLES Ayanna l Result Performing Organization Address [facility] Co de Phone Number [facility] [id number] [address] [place] [place] [address] * (ABNORMAL) Basic metabolic panel (06/11/2024 1:07 AM CDT) Pathologist [facility] Sodium 141 135 - 145 mmol/L Potassium, pl 3.2(L) 3.3 - 4.9 mmol/L [facility] Chloride 102 97 - 110 mmol/L [facility] CO2 28 22 - 32 mmol/L [facility] Anion gap 11 2 - 15 mmol/L [facility] BUN 15 6 - 25 mg/dL [facility] Creatinine 0.63 0.60 - 1.10 mg/dL [facility] Glucose 100 70 - 199 mg/dL [facility] Comment: Interpretive Data Fasting glucose >/= 126 [...] 2022. Calcium 9.0 8.5 - 10.3 mg/dL [facility] Blood 06/11/2024 1:07 AM CDT 06/11/2024 1:07 AM CDT Rachel Barnes PAN DEVULCANIZER LAB BLOOD ORDERABLES Ayanna l Result Performing Organization Address City/[facility]/ZIP Co de Phone Number [facility] [id number] [address] [place] [address] * (ABNORMAL) CBC without differential (06/11/2024 1:07 AM CDT) [facility] WBC 6.3 3.8 - 9.9 K/cumm Hgb 11.6(L) 11.9 - 15.5 g/dL [facility] Hct 35.8 35.6 - 45.5 % [facility] Plt 286 150 - 400 K/cumm [facility] MPV 9.3 9.1 - 12.3 fL [facility] RBC 3.57(L) 3.90 - 5.20 M/cumm [facility] MCV 100.3(H) 81.3 - 96.4 fL [facility] MCH 32.5 27.1 - 33.3 pg [facility] MCHC 32.4 32.3 - 35.7 g/dL [facility] RDW CV 12.6 11.1 - 14.9 % [facility] RDW SD 46.6 35.7 - 48.1 fL [facility] NRBC abs 0.00 0.00 - 0.01 K/cumm [facility] Blood 06/11/2024 1:07 AM CDT 06/11/2024 1:07 AM CDT Rachel Barnes PAN DEVULCANIZER LAB BLOOD ORDERABLES Ayanna l Result Performing Organization Address City/[facility]/ZIP Co de Phone Number [facility] [id number] [address] Department of [employer] [place], [place] [id number] * POCT glucose (06/11/2024 12:07 AM CDT) Glucose, POC 111 70 - 199 mg/dL Blood 06/11/2024 12:0 7 AM CDT 06/11/2024 12:07 AM CDT us Dilan Palmer MD LAB POCT ORDERABLES - TENA CE Final Result [facility] [id number] Department [place] [address] documented in this encounter Visit Diagnoses Diagnosis Ventricular tachycardia (HCC)- Primary Paroxysmal ventricular tachycardia Ventricular tachycardia (HCC) Paroxysmal ventricular tachycardia Chronic diastolic congestive heart failure (CMS/HCC) (HCC) Controlled type 2 diabetes mellitus with chronic kidney disease, with long-term current use of insulin (HCC) Chronic diastolic congestive heart failure (CMS/HCC) (HCC) Endocarditis Endocarditis, valve unspecified, unspecified cause Hypothyroidism Unspecified hypothyroidism Urinary frequency Hypotension due to drugs Other iatrogenic hypotension Gastroesophageal reflux disease without esophagitis Esophageal reflux Paroxysmal atrial fibrillation (CMS/HCC) (HCC) Atrial fibrillation Major depressive disorder Major depressive disorder, single episode, unspecified CKD (chronic kidney disease) Chronic kidney disease, unspecified documented in this encounter Admitting Diagnoses Diagnosis Ventricular tachycardia (HCC) Paroxysmal ventricular tachycardia documented in this encounter Administered Medications Inactive Administered Medications - up to 3 most recent administrations Medication Order MAR Action Action Date Dose Rate Site acetaminophen (TYLENOL) tablet 650 mg 650 mg, oral, Every 4 hours PRN, 1st line for pain, Starting on 06/16/24 at 1130 Given 06/21/2024 1:53 PM CDT 650 mg Nec k Given 06/16/2024 11:55 AM CDT 650 mg albuterol HFA (PROVENTIL HFA,VENTOLIN HFA,PROAIR HFA) 90 mcg/actuation inhaler 2 puff 2 puff, inhalation, Every 6 hours PRN (mobile therapist), wheezing, Starting on 06/11/24 at 0038 alteplase (CATHFLO) 1 mg/mL syringe (premix) 1 mg 1 mg, intra-catheter, Once, On 06/18/24 at 1700, For 1 dose, 60 to 120 minute dwell time. Refrigerate, Indications: Catheter clearanceIndications:Catheter clearance Given 06/18/2024 5:05 PM CDT 1 mg carvediloL (COREG) tablet 12.5 mg 12.5 mg, oral, 2 times daily with meals (bkfst, dinner), First dose (after last modification) on Tue06/18/24 at 0800 Given 06/18/2024 8:29 AM CDT 12.5 mg carvediloL (COREG) tablet 25 mg 25 mg, oral, 2 times daily with meals (bkfst, dinner), First dose on Tue06/11/24 at 0800 Given 06/17/2024 5:09 PM CDT 25 mg Given 06/17/2024 8:08 AM CDT 25 mg Given 06/16/2024 4:47 PM CDT 25 mg carvediloL (COREG) tablet 6.25 mg 6.25 mg, oral, 2 times daily with meals (bkfst, dinner), First dose (after last modification) on Tue06/18/24 at 1800 Given 06/18/2024 5:34 PM CDT 6.25 mg ceFAZolin (ANCEF) 2,000 mg/100 mL in dextrose (premix) 2 g 2 g, intravenous, at 200 mL/hr, Administer over 30 Minutes, Every 8 hours scheduled, First dose on Tue06/11/24 at 0100, For 11 days, Indications: endocarditisIndications:endocardit is New Bag 06/21/2024 1:54 PM CDT 2 g 200 mL/hr New Bag 06/21/2024 6:24 AM CDT 2 g 200 mL/hr Ri ght Upper Arm New Bag 06/20/2024 10:52 PM CDT 2 g 200 mL/hr R ight Upper Arm cholecalciferol (VITAMIN D-3) tablet 5,000 Units 5,000 Units, oral, Daily, First dose on Tue06/11/24 at 0900, Each tablet contains 1,000 units (25 mcg) of cholecalciferol. Given 06/21/2024 9:34 AM CDT 5,000 Units Given 06/20/2024 8:46 AM CDT 5,000 Units Given 06/19/2024 8:15 AM CDT 5,000 Units dapagliflozin propanediol (FARXIGA) tablet 10 mg 10 mg, oral, Daily, First dose on Tue06/18/24 at 1000, I /authorizing provider attest that the patient meets the approved 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Indications:heart failure associated with type 2 diabetes mellitus Given 06/21/2024 9:35 AM CDT 10 mg Given 06/20/2024 8:48 AM CDT 10 mg Given 06/19/2024 8:15 AM CDT 10 mg dexmedeTOMIDine in 0.9% sodium chloride (PRECEDEX) 400 mcg/100 mL (4 mcg/mL) infusion (premix) 0-0.7 mcg/kg/hr ? 115.1 kg (0-20.1425 mL/hr, rounded to 0-20.14 mL/hr), 4 mcg/mL, intravenous, Titrated, Starting on Tue06/12/24 at 1900, Until Tue06/15/24 at 2031, Titration instructions: Titrate, Initial dose: 0.2 mcg/kg/hr, Titrate: Up/Down, Titrate by: 0.1 mcg/kg/hr, Every: 30 minutes, Goal: RASS, RASS Goal: 0, +1, Routine Rate/Dose Change 06/14/2024 5:00 PM CDT 0.1 mcg/kg/hr 2.88 mL/hr Rate/Dose Change 06/14/2024 4:15 PM CDT 0.2 mcg/kg/hr 5.76 mL/hr Rate/Dose Change 06/14/2024 3:45 PM CDT 0.3 mcg/kg/hr 8.63 mL/hr dextrose (D10W) 10% bolus 250 mL 250 mL, intravenous, at 1,000 mL/hr, Administer over 15 Minutes, Every 15 min PRN, blood glucose less than 70 mg/dL and UNABLE to swallow/take PO glucose/juice., Starting on Tue06/11/24 at 0035, After treatment for hypoglycemia, recheck BG followed by treatment every 15 minutes until the BG is greater than 100 mg/dL. Then check BG 1 hour post treatment. If BG is less than 100 mg/dL, repeat Q15 minute BG checks and treatment. Call MD for each episode of hypoglycemia., Indications: hypoglycemic disorderIndications:hypoglycemic disorder dextrose oral liquid liquid 15 g 15 g, oral, Every 15 min PRN, low blood sugar, blood glucose less than 70 mg/dL, Starting on Tue06/11/24 at 0035, If patient is alert and able to [...] episode of hypoglycemia., Indications: hypoglycemic disorderIndications:hypoglycemic disorder dilTIAZem (CARDIZEM) tablet 30 mg 30 mg, oral, 3 times daily, First dose (after last modification) on Tue06/11/24 at 0900 Given 06/11/2024 8:32 AM CDT 30 mg docusate sodium (COLACE) capsule 100 mg 100 mg, oral, 2 times daily, First dose on Tue06/11/24 at 0900 Given 06/21/2024 9:34 AM CDT 100 mg Given 06/20/2024 9:21 PM CDT 100 mg Given 06/20/2024 8:49 AM CDT 100 mg dofetilide (TIKOSYN) capsule 500 mcg 500 mcg, oral, 2 times daily, First dose on Tue06/11/24 at 0900, Ensure patient has drug supply prior to discharge., Indications: cardiac arrhythmiaIndications:cardiac arrhythmia Given 06/11/2024 8:32 AM CDT 500 mcg escitalopram (LEXAPRO) tablet 10 mg 10 mg, oral, Daily, First dose on Tue06/11/24 at 0900 Given 06/11/2024 8:32 AM CDT 10 mg escitalopram (LEXAPRO) tablet 5 mg 5 mg, oral, Daily, First dose (after last modification) on Tue06/12/24 at 0900 Given 06/21/2024 9:34 AM CDT 5 mg Given 06/20/2024 8:59 AM CDT 5 mg Given 06/19/2024 8:16 AM CDT 5 mg ferrous sulfate delayed release tablet 65 mg of elemental iron 65 mg of elemental iron, oral, Daily with breakfast, First dose on Tue06/11/24 at 0800, 325 MG OF FERROUS SULFATE = 65 MG OF ELEMENTAL IRON Given 06/21/2024 9:35 AM CDT 65 mg of elemental iron Given 06/20/2024 8:48 AM CDT 65 mg of elemental iron Given 06/19/2024 8:15 AM CDT 65 mg of elemental iron furosemide (LASIX) tablet 40 mg 40 mg, oral, Daily, First dose on Tue06/11/24 at 0900 Given 06/11/2024 8:32 AM CDT 40 mg haloperidol (HALDOL) injection 5 mg 5 mg, intramuscular, Every 6 hours PRN, agitation, Starting on Tue06/12/24 at 1822, If administered IV push, administer over 5 min for adults Given 06/12/2024 6:36 PM CDT 5 mg Other (Comment) HYDROcodone-acetaminophen (NORCO) 5-325 mg per tablet 1 tablet 1 tablet, oral, 4 times daily PRN, 1st line for pain, Starting on Tue06/11/24 at 0036, For 4 days, Indications: PainIndications:Pain Given 06/14/2024 11:20 PM CDT 1 tablet Given 06/14/2024 2:29 PM CDT 1 tablet Given 06/12/2024 6:59 AM CDT 1 tablet insulin glargine (LANTUS, SEMGLEE) 100 unit/mL injection 17 Units 17 Units (rounded from 17.04 Units = 0.15 Units/kg ? 113.6 kg), subcutaneous, Nightly, First dose on Tue06/11/24 at 2100, Do not hold if NPO. Do not mix with other insulins, Indications: Diabetes MellitusIndications:Diabetes Mellitus Given 06/20/2024 9:21 PM CDT 17 Units Left Lower Abdomen Given 06/19/2024 8:55 PM CDT 17 Units Ri ght Lower Abdomen Given 06/18/2024 8:28 PM CDT 17 Units Le ft Lower Abdomen insulin lispro (HumaLOG, ADMELOG) 100 unit/mL injection 0-4 Units 0-4 Units, subcutaneous, Nightly, First dose on Tue06/11/24 at 2100, Blood glucose mg/dL: 199 or less: No insulin 200-249: add 1 unit 250-299: add 2 units 300-349: add 3 units and notify physician for adjustment of insulin orders. 350-399: add 4 units and notify physician for adjustment of insulin orders. Over 400: Notify physician for adjustment of insulin orders. Do NOT hold for NPO Status, Indications: Diabetes MellitusIndications:Diabetes Mellitus Given 06/17/2024 11:05 PM CDT 1 Units Left Lower Abdomen Given 06/16/2024 9:24 PM CDT 2 Units Le ft Lower Abdomen Given 06/14/2024 9:00 PM CDT 1 Units Le ft Lower Abdomen insulin lispro (HumaLOG, ADMELOG) 100 unit/mL injection 0-5 Units 0-5 Units, subcutaneous, 3 times daily with meals, First dose on Tue06/11/24 at 0800, Blood glucose mg/dL: 149 or [...] NPO Status, Indications: Diabetes MellitusIndications:Diabetes Mellitus Given 06/21/2024 12:44 PM CDT 1 Units Right Upper Abdomen Given 06/20/2024 6:26 PM CDT 2 Units Le ft Upper Arm Given 06/20/2024 12:46 PM CDT 1 Units L eft Upper Abdomen insulin lispro (HumaLOG, ADMELOG) 100 unit/mL injection 5 Units 5 Units, subcutaneous, Once, On Tue06/13/24 at 1230, For 1 dose Given 06/13/2024 12:08 PM CDT 5 Units Left Lower Abdomen insulin lispro (HumaLOG, ADMELOG) 100 unit/mL injection 6 Units 6 Units (rounded from 5.68 Units = 0.05 Units/kg ? 113.6 kg), subcutaneous, 3 times daily with meals, First dose on Tue06/11/24 at 0800, If BG greater than or [...] 70 mg/dL., Indications: Diabetes MellitusIndications:Diabetes Mellitus Given 06/21/2024 12:44 PM CDT 6 Units Right Upper Abdomen Given 06/21/2024 9:42 AM CDT 6 Units Ri ght Lower Abdomen Given 06/20/2024 6:26 PM CDT 6 Units Le ft Upper Arm insulin lispro (HumaLOG, ADMELOG) 100 unit/mL injection 6 Units 6 Units, subcutaneous, Once, On Tue06/15/24 at 1245, For 1 dose Given 06/15/2024 2:01 PM CDT 6 Units Left Lower Abdomen levothyroxine (SYNTHROID) tablet 75 mcg 75 mcg, oral, Every morning, First dose on Tue06/11/24 at 0600, Administer on an empty stomach, preferably 30 minutes before breakfast. Take 4 hours apart from antacids, iron and calcium products. Separate from tube feeds, if applicable. Given 06/21/2024 6:58 AM CDT 75 mcg Given 06/20/2024 5:33 AM CDT 75 mcg Given 06/19/2024 5:35 AM CDT 75 mcg magnesium oxide (MAG-OX) tablet 400 mg 400 mg, oral, Daily, First dose on Tue06/13/24 at 0900, 1 tablet = Magnesium oxide 400 mg = 241.3 mg elemental magnesium, Indications: hypomagnesemiaIndications:hypomagnesemia Given 06/21/2024 9:34 AM CDT 400 mg Given 06/20/2024 8:48 AM CDT 400 mg Given 06/19/2024 8:15 AM CDT 400 mg metoprolol XL (TOPROL-XL) extended release tablet 50 mg 50 mg, oral, Daily, First dose on Tue06/20/24 at 1300, Tablets that are scored may be split, but do not crush, chew, dissolve, open or otherwise manipulate tablet/capsule. Given 06/21/2024 9:35 AM CDT 50 m g Given 06/20/2024 12:47 PM CDT 50 mg midodrine (PROAMATINE) tablet 5 mg 5 mg, oral, 3 times daily before meals, First dose on Tue06/11/24 at 0730, Indications: Symptomatic Orthostatic HypotensionIndications:Symptomatic Orthostatic Hypotension Given 06/13/2024 9:15 AM CDT 5 mg Given 06/12/2024 5:27 PM CDT 5 mg Given 06/12/2024 12:39 PM CDT 5 mg mirabegron ER (MYRBETRIQ) extended release tablet 25 mg 25 mg, oral, Daily, First dose on Tue06/11/24 at 0900, Do not crush, chew, cut, dissolve, open or otherwise manipulate tablet/capsule. Given 06/11/2024 8:32 AM CDT 25 mg multivit ywpblrgx-cyod-NL-calcium (THERA-M) tablet 1 tablet 1 tablet, oral, Daily, First dose on Tue06/11/24 at 0900 Given 06/21/2024 9:35 AM CDT 1 tablet Given 06/20/2024 8:48 AM CDT 1 tablet Given 06/19/2024 8:15 AM CDT 1 tablet nortriptyline (PAMELOR) capsule 10 mg 10 mg, oral, Daily, First dose on Tue06/11/24 at 0900 Given 06/21/2024 9:33 AM CDT 10 mg Given 06/20/2024 8:49 AM CDT 10 mg Given 06/19/2024 8:15 AM CDT 10 mg OLANZapine (ZyPREXA) 10 mg in sterile water 2 mL (5 mg/mL) syringe 10 mg, intravenous, Administer over 1 Minutes, Once, On Tue06/12/24 at 1900, For 1 dose, Reconstitute 10 mg vial with 2.1 mL SWFI. Resulting solution is ~5 mg/mL. Use immediately (within 1 hour) following reconstitution. Given 06/12/2024 6:48 PM CDT 10 mg OLANZapine (ZyPREXA) 5 mg in sterile water 1 mL (5 mg/mL) syringe 5 mg, intramuscular, Every 6 hours PRN, agitation, Starting on Tue06/14/24 at 1550, Start after stopping Precedex drip Reconstitute 10 mg vial with 2.1 mL SWFI. Resulting solution is ~5 mg/mL. Use immediately (within 1 hour) following reconstitution. pantoprazole DR (PROTONIX) extended release tablet 40 mg 40 mg, oral, Daily, First dose on Tue06/11/24 at 0900, Do not crush, chew, cut, dissolve, open or otherwise manipulate tablet/capsule., Indications: Treatment of Non-Bleeding Gastric DisorderIndications:Treatment of Non-Bleeding Gastric Disorder Given 06/21/2024 9:35 AM CDT 40 mg Given 06/20/2024 8:48 AM CDT 40 mg Given 06/19/2024 8:16 AM CDT 40 mg potassium chloride ER (KLOR-CON) extended release tablet 20 mEq 20 mEq, oral, Daily, First dose on Tue06/11/24 at 0900, Do not crush, chew, cut, dissolve, open or otherwise manipulate tablet/capsule. Given 06/11/2024 8:32 AM CDT 20 mEq potassium chloride ER (KLOR-CON) extended release tablet 40 mEq 40 mEq, oral, Daily, First dose (after last modification) on Tue06/12/24 at 0900, Do not crush, chew, cut, dissolve, open or otherwise manipulate tablet/capsule. Given 06/21/2024 9:35 AM CDT 40 mEq Given 06/20/2024 8:49 AM CDT 40 mEq Given 06/19/2024 8:15 AM CDT 40 mEq potassium chloride ER (KLOR-CON) extended release tablet 40 mEq 40 mEq, oral, Once, On Tue06/11/24 at 1000, For 1 dose, Do not crush, chew, cut, dissolve, open or otherwise manipulate tablet/capsule. Given 06/11/2024 11:09 AM CDT 40 mEq rivaroxaban (XARELTO) tablet 20 mg 20 mg, oral, Daily with dinner, First dose on Tue06/11/24 at 1800, Nurse to discontinue heparin infusion order and associated bolus at first administration of rivaroxaban using 'order condition met' order source. If patient is eating, administer doses of 15 mg or greater with food. If patient is not eating, still administer dose unless instructed differently by provider., Indications: atrial fibrillationIndications:atrial fibrillation Given 06/20/2024 6:25 PM CDT 20 mg Given 06/19/2024 6:38 PM CDT 20 mg Given 06/18/2024 5:34 PM CDT 20 mg sacubitriL-valsartan (ENTRESTO) 24-26 mg tablet 0.5 tablet 0.5 tablet, oral, 2 times daily, First dose (after last modification) on Tue06/20/24 at 0900 Given 06/21/2024 9:33 AM CDT 0.5 tablets Given 06/20/2024 9:21 PM CDT 0.5 tablets Given 06/20/2024 8:46 AM CDT 0.5 tablets sacubitriL-valsartan (ENTRESTO) 24-26 mg tablet 1 tablet 1 tablet, oral, 2 times daily, First dose on Tue06/11/24 at 0900 Given 06/19/2024 8:55 PM CDT 1 tablet Given 06/19/2024 8:15 AM CDT 1 tablet Given 06/18/2024 8:28 PM CDT 1 tablet spironolactone (ALDACTONE) split tablet 12.5 mg 12.5 mg, oral, Daily, First dose on Tue06/18/24 at 1000 Given 06/19/2024 8:15 AM CDT 12.5 mg Given 06/18/2024 1:00 PM CDT 12.5 mg documented in this encounter Discontinued Medications Medication Sig Discontinue Reason Start Date End Da te Entresto 24-26 mg tablet Take 1 tablet by mouth 2 (two) times a day 09/11/2021 06/21/2024 midodrine (PROAMATINE) 5 mg tabletIndications:Symp tomatic Orthostatic Hypotension Take 1 tablet (5 mg total) by mouth 3 (three) times a day before meals 06/08/2024 06/21/2024 carvediloL (COREG) 25 mg tablet Take 1 tablet (25 mg total) by mouth 2 (two) times a day with meals Stop Taking at Discharge 05/06/2017 06/21/2024 dilTIAZem (CARDIZEM) 30 mg tablet Take 1 tablet (30 mg total) by mouth 2 (two) times a day Stop Taking at Discharge 04/28/2017 06/21/2024 furosemide (LASIX) 40 mg tablet Take 1 tablet (40 mg total) by mouth daily Stop Taking at Discharge 04/02/2024 06/21/2024 NovoLOG 100 unit/mL (3 mL) pen for injection Inject 10 Units under the skin 3 (three) times a day with meals Plus slide Stop Taking at Discharge 07/18/2023 06/21/2024 ceFAZolin (ANCEF) 2,000 mg/100 mL IVPBIndications:endoca rditis Infuse 100 mL (2 g total) into a venous catheter every 8 (eight) hours for 14 days Stop Taking at Discharge 06/08/2024 06/21/2024 dofetilide (TIKOSYN) 500 mcg capsuleIndications:car diac arrhythmia Take 1 capsule (500 mcg total) by mouth 2 (two) times a day for 711 doses Stop Taking at Discharge 06/08/2024 06/21/2024 HYDROcodone-acetaminop hen (NORCO) 5-325 mg per tabletIndications:Pain Take 1 tablet by mouth 4 (four) times a day as needed for pain for up to 7 days Stop Taking at Discharge 06/08/2024 06/21/2024 documented as of this encounter Active and Recently Administered Medications Times are shown in CDT. Scheduled Medication Order 06/19/2024 06/20/2024 06/21/2024 ceFAZolin (ANCEF) 2,000 mg/100 mL in dextrose (premix) 2 g (COMPLETED) 2 g, intravenous, at 200 mL/hr, Administer over 30 Minutes, Every 8 hours scheduled, First dose on Tue06/11/24 at 0100, For 11 days, Indications: endocarditis 0012 (New Bag - Provider: Alexandra Teixeira RN)0815 (New Bag - Provider: Raghavendra Vaz)1620 (New Bag - Provider: Raghavendra Vaz) 0023 (New Bag - Provider: Alexandra Teixeira RN)0849 (New Bag - Provider: Eden Singh, BROWN)1406 (New Bag - Provider: Eden Singh, BROWN)2252 (New Bag - Provider: Maria Luisa Logan RN) 0624 (New Bag - Provider: Maria Luisa Logan, BROWN)1354 (New Bag - Provider: Tila Toribio, BROWN) cholecalciferol (VITAMIN D-3) tablet 5,000 Units 5,000 Units, oral, Daily, First dose on Tue06/11/24 at 0900, Each tablet contains 1,000 units (25 mcg) of cholecalciferol. 0815 (Given - Provider: Raghavendra Vaz) 0846 (Given - Provider: Eden Singh, BROWN) 0934 (Given - Provider: Tila Toribio RN) dapagliflozin propanediol (FARXIGA) tablet 10 mg 10 mg, oral, Daily, First dose on Tue06/18/24 at 1000, I /authorizing provider attest that the patient meets the approved 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 0815 (Given - Provider: Raghavendra Vaz) 0848 (Given - Provider: Eden Singh, BROWN) 0935 (Given - Provider: Tila Toribio RN) docusate sodium (COLACE) capsule 100 mg 100 mg, oral, 2 times daily, First dose on Tue06/11/24 at 0900 0815 (Given - Provider: Raghavendra Vaz)2054 (Given - Provider: Alexandra Teixeira RN) 0849 (Given - Provider: Eden Singh RN)2120 (Given - Provider: Maria Luisa Logan RN) 0934 (Given - Provider: Tila Toribio RN) escitalopram (LEXAPRO) tablet 5 mg 5 mg, oral, Daily, First dose (after last modification) on Tue06/12/24 at 0900 0816 (Given - Provider: Raghavendra Vza) 0859 (Given - Provider: Eden Singh RN) 0934 (Given - Provider: Tila Toribio RN) ferrous sulfate delayed release tablet 65 mg of elemental iron 65 mg of elemental iron, oral, Daily with breakfast, First dose on Tue06/11/24 at 0800, 325 MG OF FERROUS SULFATE = 65 MG OF ELEMENTAL IRON 0815 (Given - Provider: Raghavendra Vaz) 0848 (Given - Provider: Eden Singh, BROWN) 0935 (Given - Provider: Tila Toribio RN) insulin glargine (LANTUS, SEMGLEE) 100 unit/mL injection 17 Units 17 Units (rounded from 17.04 Units = 0.15 Units/kg ? 113.6 kg), subcutaneous, Nightly, First dose on Tue06/11/24 at 2100, Do not hold if NPO. Do not mix with other insulins, Indications: Diabetes Mellitus 2054 (Given - Provider: Alexandra Teixeira RN) 2121 (Given - Provider: Maria Luisa Logan RN) insulin lispro (HumaLOG, ADMELOG) 100 unit/mL injection 0-4 Units 0-4 Units, subcutaneous, Nightly, First dose on Tue06/11/24 at 2100, Blood glucose mg/dL: 199 or less: No insulin 200-249: add 1 unit 250-299: add 2 units 300-349: add 3 units and notify physician for adjustment of insulin orders. 350-399: add 4 units and notify physician for adjustment of insulin orders. Over 400: Notify physician for adjustment of insulin orders. Do NOT hold for NPO Status, Indications: Diabetes Mellitus 2054 (Not Given - Provider: Alexandra Teixeira RN - Reason: Order parameters not met) 2124 (Not Given - Provider: Maria Luisa Logan RN - Reason: Order parameters not met) insulin lispro (HumaLOG, ADMELOG) 100 unit/mL injection 0-5 Units 0-5 Units, subcutaneous, 3 times daily with meals, First dose on Tue06/11/24 at 0800, Blood glucose mg/dL: 149 or [...] hold for NPO Status, Indications: Diabetes Mellitus 1107 (Given - Provider: Raghavendra Vaz)1255 (Given - Provider: Raghavendra Vaz)1840 (Given - Provider: Raghavendra Vaz) 0807 (Not Given - Provider: Eden Singh RN - Reason: Order parameters not met)1246 (Given - Provider: Eden Singh, BROWN)1826 (Given - Provider: Eden Singh, BROWN) 0942 (Not Given - Provider: Tlia Toribio RN - Reason: Contraindicated)1244 (Given - Provider: Tila Toribio, BROWN) insulin lispro (HumaLOG, ADMELOG) 100 unit/mL injection 6 Units 6 Units (rounded from 5.68 Units = 0.05 Units/kg ? 113.6 kg), subcutaneous, 3 times daily with meals, First dose on Tue06/11/24 at 0800, If BG greater than or [...] less than 70 mg/dL., Indications: Diabetes Mellitus 0816 (Given - Provider: Raghavendra Vaz)1237 (Given - Provider: Raghavendra Vaz)1839 (Given - Provider: Raghavendra Vaz) 0849 (Given - Provider: Eden Singh RN)1246 (Given - Provider: Eden Singh, BROWN)1826 (Given - Provider: Eden Singh, BROWN) 0942 (Given - Provider: Tila Toribio RN)1244 (Given - Provider: Tila Toribio RN) levothyroxine (SYNTHROID) tablet 75 mcg 75 mcg, oral, Every morning, First dose on Tue06/11/24 at 0600, Administer on an empty stomach, preferably 30 minutes before breakfast. Take 4 hours apart from antacids, iron and calcium products. Separate from tube feeds, if applicable. 0535 (Given - Provider: Alexandra Teixeira RN) 0533 (Given - Provider: Alexandra Teixeira RN) 0658 (Given - Provider: Maria Luisa Logan RN) magnesium oxide (MAG-OX) tablet 400 mg 400 mg, oral, Daily, First dose on Tue06/13/24 at 0900, 1 tablet = Magnesium oxide 400 mg = 241.3 mg elemental magnesium, Indications: hypomagnesemia 0815 (Given - Provider: Raghavendra Vaz) 0848 (Given - Provider: Eden Singh, BROWN) 0934 (Given - Provider: Tila Toribio RN) metoprolol XL (TOPROL-XL) extended release tablet 50 mg 50 mg, oral, Daily, First dose on Tue06/20/24 at 1300, Tablets that are scored may be split, but do not crush, chew, dissolve, open or otherwise manipulate tablet/capsule. 1247 (Given - Provider: Eden Singh RN) 0935 (Given - Provider: Tila Toribio RN) multivit ulednios-lxak-TU-calcium (THERA-M) tablet 1 tablet 1 tablet, oral, Daily, First dose on Tue06/11/24 at 0900 0815 (Given - Provider: Raghavendra Vaz) 0848 (Given - Provider: Eden Singh RN) 0935 (Given - Provider: Tila Toribio RN) nortriptyline (PAMELOR) capsule 10 mg 10 mg, oral, Daily, First dose on Tue06/11/24 at 0900 0815 (Given - Provider: Raghavendra Vaz) 0849 (Given - Provider: Eden Singh RN) 0933 (Given - Provider: Tila Toribio RN) pantoprazole DR (PROTONIX) extended release tablet 40 mg 40 mg, oral, Daily, First dose on Tue06/11/24 at 0900, Do not crush, chew, cut, dissolve, open or otherwise manipulate tablet/capsule., Indications: Treatment of Non-Bleeding Gastric Disorder 0816 (Given - Provider: Raghavendra Vaz) 0848 (Given - Provider: Eden Singh RN) 0935 (Given - Provider: Tila Toribio RN) potassium chloride ER (KLOR-CON) extended release tablet 40 mEq 40 mEq, oral, Daily, First dose (after last modification) on Tue06/12/24 at 0900, Do not crush, chew, cut, dissolve, open or otherwise manipulate tablet/capsule. 0815 (Given - Provider: Raghavendra Vaz) 0849 (Given - Provider: Eden Singh RN) 0935 (Given - Provider: Tila Toribio RN) rivaroxaban (XARELTO) tablet 20 mg 20 mg, oral, Daily with dinner, First dose on Tue06/11/24 at 1800, Nurse to discontinue heparin infusion order and associated bolus at first administration of rivaroxaban using 'order condition met' order source. If patient is eating, administer doses of 15 mg or greater with food. If patient is not eating, still administer dose unless instructed differently by provider., Indications: atrial fibrillation 1837 (Given - Provider: Raghavendra Vaz) 1824 (Given - Provider: Eden Singh, RN) sacubitriL-valsartan (ENTRESTO) 24-26 mg tablet 0.5 tablet 0.5 tablet, oral, 2 times daily, First dose (after last modification) on Tue06/20/24 at 0900 0846 (Given - Provider: Eden Singh, RN)2120 (Given - Provider: Maria Luisa Logan, BROWN) 932 (Given - Provider: Tila Toribio RN) sacubitriL-valsartan (ENTRESTO) 24-26 mg tablet 1 tablet (CANCELED) 1 tablet, oral, 2 times daily, First dose on Tue06/11/24 at 0900 0815 (Given - Provider: Raghavendra Vaz)2054 (Given - Provider: Alexandra Teixeira RN) spironolactone (ALDACTONE) split tablet 12.5 mg (CANCELED) 12.5 mg, oral, Daily, First dose on Tue06/18/24 at 1000 0815 (Given - Provider: Raghavendra Vaz) PRN Medication Order 06/19/2024 06/20/2024 06/21/2024 acetaminophen (TYLENOL) tablet 650 mg 650 mg, oral, Every 4 hours PRN, 1st line for pain, Starting on Tue06/16/24 at 1130 1353 (Given - Provid er: Tila Toribio RN) albuterol HFA (PROVENTIL HFA,VENTOLIN HFA,PROAIR HFA) 90 mcg/actuation inhaler 2 puff 2 puff, inhalation, Every 6 hours PRN (mobile therapist), wheezing, Starting on Tue06/11/24 at 0038 dextrose (D10W) 10% bolus 250 mL(Linked Group 1) 250 mL, intravenous, at 1,000 mL/hr, Administer over 15 Minutes, Every 15 min PRN, blood glucose less than 70 mg/dL and UNABLE to swallow/take PO glucose/juice., Starting on Tue06/11/24 at 0035, After treatment for hypoglycemia, recheck BG followed by treatment every 15 minutes until the BG is greater than 100 mg/dL. Then check BG 1 hour post treatment. If BG is less than 100 mg/dL, repeat Q15 minute BG checks and treatment. Call MD for each episode of hypoglycemia., Indications: hypoglycemic disorder dextrose oral liquid liquid 15 g(Linked Group 1) 15 g, oral, Every 15 min PRN, low blood sugar, blood glucose less than 70 mg/dL, Starting on Tue06/11/24 at 0035, If patient is alert and able to [...] each episode of hypoglycemia., Indications: hypoglycemic disorder fluticasone propionate (FLONASE) 50 mcg/actuation nasal spray 1 spray 1 spray, each nostril, Daily PRN, rhinitis, Starting on Tue06/11/24 at 0034 glucagon injection 1 mg 1 mg, intramuscular, Every 30 min PRN, low blood sugar, blood glucose less than 70 mg/dL AND no IV access AND unable to take PO glucose/juice., Starting on Tue06/11/24 at 0035, After Glucagon is administered, position patient on [...] 1 mL SWFI. Use immediately following reconstitution. OLANZapine (ZyPREXA) 5 mg in sterile water 1 mL (5 mg/mL) syringe 5 mg, intramuscular, Every 6 hours PRN, agitation, Starting on Rowena 06/14/24 at 1550, Start after stopping Precedex drip Reconstitute 10 mg vial with 2.1 mL SWFI. Resulting solution is ~5 mg/mL. Use immediately (within 1 hour) following reconstitution. Linked Groups Order Group 1: dextrose oral liquid liquid 15 gJump to med 15 g, oral, Every 15 min PRN, low blood sugar, blood glucose less than 70 mg/dL, Starting on Tue06/11/24 at 0035, If patient is alert and able to [...] UNABLE to swallow/take PO glucose/juice., Starting on Tue06/11/24 at 0035, After treatment for hypoglycemia, recheck BG followed by treatment every 15 minutes until the BG is greater than 100 mg/dL. Then check BG 1 hour post treatment. If BG is less than 100 mg/dL, repeat Q15 minute BG checks and treatment. Call MD for each episode of hypoglycemia., Indications: hypoglycemic disorder documented in this encounter Orders Medications Ordered That Didier ht Not Have Been Administered Count Last Ordered Date First Ordered Date OLANZapine (ZyPREXA) 5 mg in sterile water 1 mL (5 mg/mL) syringe 1 06/14/2024 albuterol HFA (PROVENTIL HFA ,VENTOLIN HFA,PROAIR HFA) 90 mcg/actuation inhaler 2 puff 2 06/11/2024 dextrose (D10W) 10% bolus 250 mL 1 06/11/20 24 dextrose oral liquid liquid 15 g 1 06/11/20 24 dilTIAZem (CARDIZEM) tablet 30 mg 3 024 fluticasone propionate (FLON ASE) 50 mcg/actuation nasal spray 1 spray 1 06/11/2024 furosemide (LASIX) tablet 20 mg 1 4 glucagon injection 1 mg 1 06/11/2024 Lab Orders Without Results Count Last Ordered D ate First Ordered Date POCT GLUCOSE DEVICE 38 06/21/2024 06/11/20 24 MAGNESIUM 1 06/11/2024 Diet Count Last Ordered Date First Orde red Date ADULT DISCHARGE DIET 1 06/21/2024 Nursing Count Last Ordered Date First Orde red Date DISCHARGE ACTIVITY 1 06/21/2024 DISCHARGE CALL PROVIDER 8 06/21/2024 DISCHARGE INSTRUCTIONS 2 06/21/2024 FOLLOW UP WITH ESTABLISHED PROVIDER 2 06/21 NURSING COMMUNICATION 1 06/13/2024 TELEMETRY MONITORING 1 06/11/2024 Consult Count Last Ordered Date First Orde red Date IP CONSULT TO SOCIAL WORK 1 06/20/2024 CONSULT TO BEHAVIORAL HEALTH [facility] 1 024 IP CONSULT TO PSYCHIATRY 1 06/13/2024 IP CONSULT TO CARDIOLOGY 1 06/11/2024 Admission Count Last Ordered Date First Orde red Date ADMIT TO INPATIENT 1 06/11/2024 Transfer Count Last Ordered Date First Orde red Date TRANSFER PATIENT TO NEW UNIT 1 06/15/2024 Discharge Count Last Ordered Date First Orde red Date DISCHARGE PATIENT 1 06/21/2024 documented in this encounter Care Teams Medical Billing And Coding Specialist Relationship Specialty Start Date End Date Oswaldo Serrano MD [address] [address] PCP - General Family Medicine 04/14/18 [place] [id number] [address] Consulting Physician Cardiology 06/08/24 Lizzie Hong MD [address] [place] [address] Referring Physician Cardiology 06/21/24 documented as of this encounter
--- OUTSIDE RECORDS SUMMARY | 2024-10-07 00:53 | XMS_ITS | Encounter Summary ---
Author Organization [facility] Healthcare Address [address] [place] [address] Care Team Providers Care Netezza Developer Name Role Phone Oswaldo Serrano MD Primary Care Provider [phone] Pastora Flores MD Unavailable Reason for Referral * Consultation (Routine) - Pending Review Specialty Diagnoses / Procedures Referred By Contac t Referred To Contact Diabetes and Nutrition Services Diagnoses Diabetes mellitus with hyperglycemia (HCC) Acute on chronic systolic congestive heart failure (CMS/HCC) (HCC) Elly Julian MD [address] [place] [address] Phone: tel: fax: [address] [phone] Referral ID Status Reason Start Date Expiration Date Visits Requested Visits Authorized [id number] Pending Review Specialty Services Required 06/05/2024 07/05/2025 10 10 Question Answer Please select the performing region: [145] [id number] Initial / Annual Follow-up MNT # of visits: 10 * Home Health (Routine) - Closed Specialty Diagnoses / Procedures Referred By Contac t Referred To Contact Home Health Services / Home Health and Hospice Diagnoses Acute bacterial endocarditis Elly [place] MD [id number] [place] [address] Phone: tel: fax: [facility] Home Care Services [address] [place] [address] Phone: tel: fax: Referral ID Status Reason Start Date Expiration Date V isits Requested Visits Authorized [id number] Closed Specialty Services Required 06/01/2024 07/01/2025 1 1 Question Answer [facility] Home Health and Infusion Primary disciplines requested: Snf, Physical Therapy Secondary disciplines requested: Occupational Therapy Home Health Services IV Catheter Maintenance, Disease and Medication Management IV Catheter Types: PICC Line Number of Lumens: 1 IV Catheter Flush Care Instructions: Evaluate and manage the IV catheter to maintain patency IV Catheter Dressing Change Instructions: Evaluate, manage, and change the dressing weekly Infusion Services IV Catheter Maintenance (Infusion), Infusion Therapy Infusion Therapy: Antibiotic Therapy How many antibiotic therapies: 1 ABX Medication 1: ancef ABX Dose 1: 2000mg ABX Route 1: IV ABX Frequency 1: [id number] ABX Therapy Duration 1: until 06/08 Physician to follow patient's care (the person listed here will be responsible for signing ongoing orders): PCP Requested Start of Care Date: Today (please call ahead to confirm) I certify that, based on my findings, the following services are medically necessary skilled home health services: Therapy to Eval/Tx, Other Comment IV antibiotics I certify that, based on my findings, the following services are medically necessary skilled home infusion services: Other (Infusion) Comment IV antibiotics I attest that I or another qualified licensed provider saw the patient 90 days prior to or 30 days post admission and this face to face encounter meets the necessary Home Health requirements. The face to face encounter occurred on (date): 06/01/2024 The encounter with the patient was in whole, or in part, for the following medical condition, which is the primary reason for home health care. (List medical condition): Endocarditis Clinical findings that support the need for home care: Medical condition requiring skilled assessment/education I certify that my clinical findings support patient's homebound status. Homebound criteria met because: Requires assistance of another to leave home safely * Cardiology (Routine) - Pending Review Specialty Diagnoses / Procedures Referred By Contac t Referred To Contact Diagnoses Acute bacterial endocarditis Procedures Transesophageal Echo (CHANCE) W Doppler/CF TRANSESOPHAGEAL ECHO (CHANCE) W DOPPLER/CF TRANSESOPHAGEAL ECHO (CHANCE) W DOPPLER/CF WO CONTRAST TRANSESOPHAGEAL ECHOCARDIOGRAM (CHANCE) COMPLETE W/ CONTRAST TRANSESOPHAGEAL ECHO (CHANCE) W DOPPLER/CF W CONTRAST TRANSESOPHAGEAL ECHO (CHANCE) W LTD DOPPLER/CF WO CONTRAST TRANSESOPHAGEAL ECHOCARDIOGRAM (CHANCE) COMPLETE W/ COLOR TRANSESOPHAGEAL ECHO (CHANCE) WO DOPPLER/CF W CONTRAST Ty Mcfarland MD [address] [place] [address] Phone: tel: fax: [address] [phone] Referral ID Status Reason Start Date Expiration Date V isits Requested Visits Authorized [id number] Pending Review 05/30/2024 06/29/2025 1 1 Reason for Visit * Auth/Cert (Routine) Specialty Diagnoses / Procedures Referred By Contac t Referred To Contact Diagnoses Endocarditis endocarditis Procedures na Referral ID Status Reason Start Date Expiration Date Visits Re quested Visits Authorized [id number] 1 1 Encounter Details Date Type Department Care Team (Latest Contact Info) Description 05/29/2024 5:34 PM CDT - 06/08/2024 7:00 PM CDT [place] [address] [place] [address] [facility] [address] [place] [address] [place] [address] [place] [address] [place] [phone] [address] [place] [address] [place] [address] Diabetes mellitus with hyperglycemia (CMS/HCC) (HCC) (Primary Dx); Acquired hypothyroidism; Acute bacterial endocarditis; Hyponatremia; Acute on chronic systolic congestive heart failure (CMS/HCC) (HCC) Discharge Disposition: Discharge to SNF Social History Tobacco Use Types Packs/Day Years Used Date Smoking Tobacco: Never Smokeless Tobacco: Never Tobacco Cessation:Counseling Given: No [facility] Utilities Answer Date Recorded In the past 12 months has e [employer], gas, oil, or water [employer] threatened to shut off services in your [...] week 06/01/2024 How often do you attend [facility] or sikhism services? Never 06/01/2024 Do you belong to any clubs o r organizations such as muslim groups, unions, fraternal or athletic groups, or [...] any time in the past 12 m [facility], were you homeless or living in a penitentiary (including now)? No 06/01/2024 Personal Safety Answer Date Recorded Getting School Help Needed Not on file 12/24 Comments Unknown Sex and Gender Information Value Date Recorded Sex Assigned at Not on file Legal Sex Female 3:51 AM [employer] Gender Identity Not on file Sexual Orientation Not on file documented as of this encounter Last Filed Vital Signs Vital Sign Reading Time Taken Comments Blood Pressure 108/69 06/08/2024 3:14 PM CDT Pulse 80 06/08/2024 3:14 PM CDT Temperature 36.8 ??C (98.2 ??F) 06/08/2024 3:14 PM CD T Respiratory Rate 20 06/08/2024 3:14 PM CDT Oxygen Saturation 92% 06/08/2024 3:14 PM CDT Inhaled Oxygen Concentration - - Weight 113.6 kg (250 lb 6.4 oz) 06/07/2024 6:00 AM CDT Height 165.1 cm (5' 5 ) 05/31/2024 7:59 AM CDT Body Mass Index 41.67 05/31/2024 7:59 AM CDT documented in this encounter Discharge Summaries * Coleen Samuels MD - 06/08/2024 2:05 PM CDT Inpatient Discharge Summary Patient Name - Lei Rodriguez Patient Age - 63 yrs Patient - [id number] CSN - [id number] Document Creation Date: 06/08/2024 Admitting Provider, MD: Ty Mcfarland MD Discharge Provider, : Coleen Samuels MD Primary Care Physician at Discharge: Oswaldo Serrano MD [phone] Admission Date: 05/29/2024 Discharge Date/time: 06/08/2024 Admission Location: [facility] LOS - LOS: 10 days DETAILS OF HOSPITAL STAY Hospital Problems/Diagnoses Principal Problem: Endocarditis Active Problems: SOB (shortness of breath) Acute on chronic systolic congestive heart failure (CMS/HCC) ([facility]) Neck pain Hyponatremia Chronic a-fib ([facility]) ([facility]) Type 2 diabetes mellitus, with long-term current use of insulin ([facility]) Hypothyroid JOSE (obstructive sleep apnea) Diabetes mellitus with hyperglycemia ([facility]) ([facility]) Traumatic hematoma of right upper arm Hypotension Reason for Hospitalization: abdominal pain, endocarditis Hospital Course: Lei Rodriguez is a 63 year old female with PMHx of Afib, CHF, T2DM, GERD, HTN, intellectual disability, JOSE, AICD, hypothyroidism who presented to on 05/29 with abdominal pain. Limited historian due to intellectual disability. She initially presented to [facility] on 05/21 with n/v/d and abdominal pain. She was found to have endocarditis with positive blood cultures growing staph aureus. She was started on vanc, zosyn, and IVF initially, now she is on ancef. She was also complaining of right neck pain, but was found to have no acute pathology on CT head and CT C-spine. On 05/30, dislodged catheter vs wire seen in right pulm artery on CT chest. CHANCE performed showing no TV vegetation, but presence of catheter vs wire in right pulm artery and left atrial appendage clot. Risks/benefits discussed with IR and CTS with no plan for surgical intervention. She is being followed by ID for antibiotic management. No blood cultures to date. Initially, end date for ancef was 06/08, but switched to 06/22 to complete 4 weeks due to AICD in place. PICC line was placed on 06/05 but had RUE swelling. CXR on 06/06 showing successful placement. Patient is set to be discharged on 06/08 if we can obtain Discharge Details Physical Exam at Discharge: Discharge Condition: Insurance authorization Pulse: 81 Resp: 20 BP: 100/54 Temp: 36.7 ??C (98.1 ??F) Weight: 113.6 kg (250 lb 6.4 oz) Pertinent Exam Findings at Discharge: Patient has significant hematoma on right upper extremity where PICC line is inserted but PICC line is flushing well, bruise is improving Discharge Disposition: Code Status at Discharge: Full Code Active Issues & Recommended Plan for Follow-up: Follow-up with Cardiology in two weeks Allergies: Sulfa (sulfonamide antibiotics) Discharge Medications: Your medication list ASK your doctor about these medications Instructions Last Dose Given Next Dose Due albuterol HFA 90 mcg/actuation inhaler Commonly known as: PROVENTIL HFA,VENTOLIN HFA,PROAIR HFA 2 puffs, inhalation, Every 6 hours PRN BASAGLAR 100 unit/mL (3 mL) pen for injection Generic drug: insulin glargine 18 Units, subcutaneous, Daily carvediloL 25 mg tablet Commonly known as: COREG 25 mg, oral, 2 times daily with meals (bkfst, dinner) cholecalciferol 5,000 unit tablet Commonly known as: VITAMIN D-3 5,000 Units, oral, Daily dilTIAZem 30 mg tablet Commonly known as: CARDIZEM 30 mg, oral, 2 times daily docusate sodium 100 mg capsule Commonly known as: COLACE 1 capsule, oral, 2 times daily Entresto 24-26 mg tablet Generic drug: sacubitriL-valsartan 1 tablet, oral, 2 times daily escitalopram 10 mg tablet Commonly known as: LEXAPRO 1 tablet, oral, Daily Farxiga 10 mg tablet Generic drug: dapagliflozin propanediol 1 tablet, oral, Daily ferrous sulfate 325 mg (65 mg of elemental iron) tablet 65 mg of elemental iron, oral, Daily with breakfast fluticasone propionate 50 mcg/actuation nasal spray Commonly known as: FLONASE 1 spray, each nostril, Daily PRN furosemide 40 mg tablet Commonly known as: LASIX 40 mg, oral, Daily Gemtesa 75 mg tablet Generic drug: vibegron 1 tablet, oral, Daily levothyroxine 75 mcg tablet Commonly known as: SYNTHROID 1 tablet, oral, Every morning multivit ilcmvjva-atcr-XX-calcium 9 mg iron-400 mcg tablet Commonly known as: THERA-M 1 tablet, oral, Daily nortriptyline 10 mg capsule Commonly known as: PAMELOR 1 capsule, oral, Daily NovoLOG 100 unit/mL (3 mL) pen for injection Generic drug: insulin aspart 10 Units, subcutaneous, 3 times daily with meals, Plus slide omeprazole 20 mg capsule Commonly known as: PriLOSEC 20 mg, oral, Daily potassium chloride ER 20 mEq CR tablet Commonly known as: KLOR-CON 20 mEq, oral, Daily Xarelto 20 mg tablet Generic drug: rivaroxaban 20 mg, oral, Daily with dinner Time Spent in Discharge Process: I have spent 38 minutes on discharge planning activities. Time spent was on Coordination of care, Follow up , Counselling with patient/family, and discharge exam Test Results Pending at Discharge (If Blank, None Found): Operative Procedures Performed (If Blank, None Found): Procedure(s): TRANSESOPHAGEAL ECHOCARDIOGRAM CARDIOVERSION Outpatient Follow-Up: Contact Information for Follow-ups [facility] Home Care Services Specialty: Home Health and Hospice [address] [place] [id number] Next Steps: Follow up Questions: Service Line: Home Health and Infusion Primary disciplines requested: Snf Physical Therapy Secondary disciplines requested: Occupational Therapy Home Health Services: IV Catheter Maintenance Disease and Medication Management IV Catheter Types: PICC Line Number of Lumens: 1 IV Catheter Flush Care Instructions: Evaluate and manage the IV catheter to maintain patency IV Catheter Dressing Change Instructions: Evaluate, manage, and change the dressing weekly Infusion Services: IV Catheter Maintenance (Infusion) Infusion Therapy Infusion Therapy: Antibiotic Therapy How many antibiotic therapies: 1 ABX Medication 1: ancef ABX Dose 1: 2000mg ABX Route 1: IV ABX Frequency 1: [id number] ABX Therapy Duration 1: until 06/08 Physician to follow patient's care (the person listed here will be responsible for signing ongoing orders): PCP Requested Start of Care Date: Today (please call ahead to confirm) I certify that, based on my findings, the following services are medically necessary skilled home health services: Therapy to Eval/Tx Other Comment: IV antibiotics I certify that, based on my findings, the following services are medically necessary skilled home infusion services: Other (Infusion) Comment: IV antibiotics I attest that I or another qualified licensed provider saw the patient 90 days prior to or 30 days post admission and this face to face encounter meets the necessary Home Health requirements. The face to face encounter occurred on (date): 06/01/2024 The encounter with the patient was in whole, or in part, for the following medical condition, whichis the primary reason for home health care. (List medical condition): Endocarditis Clinical findings that support the need for home care: Medical condition requiring skilled assessment/education I certify that my clinical findings support patient's homebound status. Homebound criteria met because: Requires assistance of another to leave home safely Referral Status: Do Not Schedule Please schedule an appointment with the following provider(s): [facility] Home Care Services [address] [facility] [address] ANCILLARY INFORMATION Other Procedures & Diagnostic Tests: ECG 12 lead Result Date: 05/31/2024 Vent Rate: 76 bpm RR Interval: 785 msec HI Interval: 0 msec QRS Duration: 150 msec QT Interval: 471msec QTC Interval: 501 msec P-R-T [place]: 0 - 80 - 97 degrees IMPRESSION: ATRIAL FIBRILLATION WITH ABERRANT CONDUCTION OR VENTRICULAR PREMATURE COMPLEXES INTRAVENTRICULAR CONDUCTION DELAY [130+ ms QRS DURATION] ABNORMAL ECG Electronically Signed By: Dr. Shiloh Muhammad [facility] ECG 12 lead Result Date: 05/30/2024 Vent Rate: 109 bpm RR Interval: 548 msec HI Interval: 0 msec QRS Duration: 149 msec QT Interval: 398 msec QTC Interval: 462 msec P-R-T [place]: 0 - 96 - 89 degrees IMPRESSION: ATRIAL FIBRILLATION WITH RAPID VENTRICULAR RESPONSE BORDERLINE RIGHT AXIS DEVIATION [QRS AXIS > 90] INTRAVENTRICULAR CONDUCTION DELAY [130+ ms QRS DURATION] ABNORMAL ECG Unchanged compared to an EKG done earlier on May 30, 2024 Electronically Signed By: Dr. Shiloh Muhammad [facility] CT Chest WO Contrast Result Date: 05/30/2024 EXAMINATION: Computed tomography of the chest without intravenous contrast HISTORY: Right lower lobe pulmonary artery for and body TECHNIQUE: Transaxial computed tomographic images of the chest were obtained without intravenous contrast according to the standard protocol. COMPARISON: 05/30/[address] angiography. FINDINGS: Bilateral small pleural effusions and atelectasis.There is trace pulmonary edema. Heart is enlarged. [...] changes of cholecystectomy. No suspicious osseous lesions. 1. Redemonstrated curvilinear radiopaque density extending from the proximal right lower lobe pulmonary artery into a subsegmental lateral basilar branch favors a catheter or wire fragment. 2. Findings most suggestive of heart failure with cardiomegaly, small volume pericardial effusion, and small bilateral pleural effusions and mild pulmonary edema. Electronically signed by: Abilio Post M.D. Transthoracic Echo (TTE) Complete W Doppler/CF Result Date: 05/30/2024 [place] [address] Echocardiogram Report Patient Name: LEI RODRIGUEZ V : 1960 Study Date: 05/30/2024 7:47:08 AM Gender: F Tech: GUILHERME Location: [place] [address] Ref Provider: TY MCFARLAND Height(Cm): 165 BSA: 2.43 Weight(Kg): 128.7 Heart Rate: 94 BP: 135/84 Quality: Good OrderProvider: TY MCFARLAND PROCEDURES: Echocardiographic Report: Transthoracic echocardiogram withcomplete 2D, M-Mode, color Doppler examination and contrast. INDICATIONS: Endocarditis. Measurements: 2D/M Mode Doppler Measurement Value Normal Range Measurement Value Normal Range EF Teich 2D 21.6 [ 54.0 - 74.0 ] percent MARIANA Vmax 3.09 cm2 EF Mod 4C 33.1 percent AV Mean PG 3 mmHg LVIDd 2D 5.71 [3.80 - 5.20 ] cm AV Peak Chadd [...] Volume Index 22.99 [ 16.00 - 34.00 ]cc/m2 MV A Peak Chadd 0.31 [ 1.00 - 1.20 ] m/s ACS MM 2.14 cm MV Mean PG 2 mmHg MV PHT 54 [ 20 - 100] msec MVA PHT 4.11 cm2 MV Decel [...] measured at 30 %. Left Atrium: The leftatrium is normal in size. Right Ventricle: Normal [...] mitral valve. Mild to moderate mitral valve regurgitation.The regurgitation jet is eccentrically directed which may [...] enlargement of the pulmonary artery. CONCLUSIONS: Technically di fficult study with limited views. Mild enlargement of [...] Trivial pericardial effusion. Electronically Signed By: Coleen Kwok DO, RUBIO, MELISSA CANDELARIO 2024-05-30 09:18:05 CDT CC: CC: CC: XR Chest 1 View Result Date: 05/30/2024 EXAMINATION: XR CHEST 1 VIEW History: Shortness of breath Single view chest exam similar for interpretation with comparison to prior from 03/07/2017. Correlation made with CT from the same day There are diffuse interstitial and airspace opacities compatible with moderate pulmonary edema. Likely small effusions. Heart is enlarged. There is a curvilinear density projecting over the right lower lung which corresponds to a catheter or wire in the right lowerlobe pulmonary arteries when correlated with the CT examination. This finding is not present on theprior 2016 examination. The presence of this finding was discussed by Dr. Abernathy with Dr. Hollis and documented by Dr. Hollis in the medical record on 05/30/2024 at 457. Electronically signed by: Tawanna Post M.D. ECG 12 lead Result Date: 05/30/2024 Vent Rate: 86 bpm RR Interval: 697 msec HI Interval: 0 msec QRS Duration: 145 msec QT Interval: 438msec QTC Interval: 481 msec P-R-T [place]: 0 - 101 - 95 degrees IMPRESSION: ATRIAL FIBRILLATION RIGHT AXIS DEVIATION [QRS AXIS > 100] INTRAVENTRICULAR CONDUCTION DELAY [130+ ms QRS DURATION] ABNORMALECG Unchanged compared to 05/29/2021 Electronically Signed By: Dr. Shiloh Muhammad [facility] CT Chest PE (CTA) W Contrast Result Date: 05/30/2024 EXAMINATION: CT CHEST PE (CTA) W CONTRAST HISTORY: Chest pain ORDER DATE: 05/30/2024 3:20 AM TECHNIQUE: CT chest images were acquired using a chest angiographic protocol with 3-D imaging optimized forPE is obtained [id number] mL of Optiray 350 IV. 2D Coronal and sagittal reformats were obtained. 3-D rendering (not supervised by radiologist) MIP and/or 3-D reconstructed images were created by thetechnologist. FINDINGS: Dual lead pacer device implanted in the left chest wall with leads in the right atrium and right ventricle. Pulmonary arteries: Dilated main pulmonary artery measuring 4.9 cm.Some of the segmental branches are not well assessed for exclusion of subtle emboli due to excessive motion. Otherwise centrally no pulmonary artery emboli. A dislodged catheter is visualized in the distal right pulmonary artery extending into the lobar and segmental right lower lobe pulmonary artery branch, image [id number]/coronal series 9. Aorta: Unremarkable. No aortic aneurysm. No aortic dissect ion. Lungs: Diffuse multilobar septal thickening, peribronchial thickening and increased ground-glass alveolar airspace opacity of the lung parenchyma representing findings of pulmonary interstitial edema. Pleural spaces: Mild left and trace to mild right pleural effusions. Heart: Four-chamber enlarged heart. Reflux of contrast within the hepatic veins and IVC may suggest right heart failure. Trace to mild pericardial effusion present. Lymph nodes: Multiple calcified mediastinal and hilar lymphnodes which suggest prior exposure to granulomatous disease. No lymphadenopathy. Diaphragm: There is a small hiatal hernia. Liver: Coarsened nodular hepatic parenchyma may suggest underlying chronic hepatocellular disease. Liver is prominent in size measuring 17.5 cm. Gallbladder and biliary ducts:Cholecystectomy. Bones/joints: No acute fracture. Soft tissues: Unremarkable. 1. Motion degraded evaluation of the pulmonary arteries. Some of the segmental branches are not well assessed for exclusion of subtle emboli. Otherwise centrally no pulmonary artery emboli. 2. Pulmonary arterial hypertension and dislodged the catheter visualized in the distal right pulmonary arteryand right lower lobe lobar and segmental pulmonary artery branch. 3. CHF, pulmonary edema and smallbilateral pleural effusions. 4. Possible congestive cirrhosis. Correlate with LFTs. 5. Additional findings as described above. Stat report by [facility] . Electronically signed by: Andrea Abernathy M.D. CT Cervical Spine WO Contrast Result Date: 05/30/2024 EXAMINATION: CT CERVICAL SPINE WO CONTRAST HISTORY: Neck pain ORDER DATE: 05/29/2024 10:55 PM TECHNIQUE: Multiple helical axial images of the cervical spine were obtained without the administration ofcontrast. Coronal and sagittal reformatted images were included. FINDINGS: Bones: No acute fracture. Chronic mild C6 loss of vertebral body height present. Normal alignment. Mild right C3- C4 facet arthrosis. C3-C4 disc narrowing and partially calcified bulging disc contributing to nnpa-cv-qdoerkyc central spinal stenosis. Disc osteophyte complex also contributing to zzcf-kj-oxmhyiov central spinal stenosis at C4-C5 level. No significant disc bulge or herniation. No severe spinal canal stenosis. Uncovertebral joint hypertrophy contributing to multilevel bilateral neural foraminal stenosis. Lungs: Lung apices are normal. Soft tissues: Unremarkable. No acute cervical spine injury. Stat report by [facility] Stat report by [facility] Electronically signed by: Andrea Abernathy M.D. CT Head WO Contrast Result Date: 05/30/2024 EXAMINATION: CT head without contrast HISTORY: Headache, new or worsening (Age >= 50y) TECHNIQUE: Noncontrast CT of the brain was performed with images acquired from skull base to vertex. COMPARISON: None available. FINDINGS: Brain: Global volume loss and cortical dilatation present. No hemorrhage. Mild chronic microvascular ischemic changes of the periventricular white matter. No mass effect.No edema. Cerebral ventricles: No ventriculomegaly. Paranasal sinuses: Visualized sinuses are unremarkable. No fluid levels. Mastoid air cells: Visualized mastoid air cells are well aerated. Bones: Unremarkable. No acute fracture. Soft tissues: Unremarkable. No acute intracranial findings. Stat report by [facility] Electronically signed by: Andrea Abernathy M.D. ECG 12 lead Result Date: 05/30/2024 Vent Rate: 93 bpm RR Interval: 645 msec HI Interval: 0 msec QRS Duration: 97 msec QT Interval: 197 msec QTC Interval: 247 msec P-R-T [place]: 0 - 118 - 0 degrees IMPRESSION: ATRIAL FIBRILLATION WITH ABERRANT CONDUCTION OR VENTRICULAR PREMATURE COMPLEXES LOW QRS VOLTAGE [QRS DEFLECTION < 0.5/1.0 mV IN LIMB/CHEST LEADS] SEPTAL MYOCARDIAL INFARCTION , PROBABLY OLD [40+ ms Q WAVE IN V1/V2] Nonspecific IVCD LATERAL MYOCARDIAL INFARCTION , OF INDETERMINATE AGE [40+ ms Q WAVE AND/OR ST/T ABNORMALITY IN I/aVL/V5/V6] ABNORMAL ECG Electronically Signed By: Antonio Carlos MD Recent Labs: Recent Labs Lab Units 06/08/24 0430 06/07/24 0400 06/06/24 0359 WBC K/cumm 5.5 6.1 5.6 HEMOGLOBIN g/dL 11.9 11.8* 11.8* HEMATOCRIT % 37.0 36.7 37.3 PLATELETS K/cumm 295 299 319 Recent Labs Lab Units 06/08/2442906/07/2439906/06/24358 WBC K/cumm 5.5 6.1 5.6 HEMOGLOBIN g/dL 11.9 11.8* 11.8* HEMATOCRIT % 37.0 36.7 37.3 PLATELETS K/cumm 295 299 319 NEUTROS PCT % 59.9 67.3 64.8 LYMPHS PCT % 21.6 17.3 19.0 MONOS PCT % 13.2 10.6 11.9 EOS PCT % 2.7 2.5 2.0 Recent Labs Lab Units 06/08/24120706/08/24 0606/08/2442906/07/2461206/07/2439906/06/2472406/06/24358 SODIUM mmol/L -- -- 136 -- 131* -- 133* POTASSIUM PLASMA mmol/L -- -- 3.7 -- 4.2 -- 4.0 CHLORIDE mmol/L -- -- 97 -- 97 -- 98 CO2 mmol/L -- -- 30 -- 25 -- 26 BUN SERUM mg/dL -- -- 17 -- 17 -- 20 CREATININE mg/dL -- -- 0.70 -- 0.66 -- 0.68 [id number]-[id number] mL/min/1.73 m2 -- -- >90 -- >90 -- >90 GLUCOSE mg/dL -- -- 175 -- 133 -- 241* POC GLUCOSE MONITOR mg/dL 267* < > -- < > -- < > -- CALCIUM mg/dL -- -- 9.0 -- 8.9 -- 8.8 ALBUMIN g/dL -- -- 3.2* -- 2.8* -- 2.9* PHOSPHORUS PLASMA mg/dL -- -- 3.4 -- 2.9 -- 3.2 < > = values in this interval not displayed. Recent Labs Lab Units 06/08/24120706/08/2445 06/08/2442906/07/2461206/07/2439906/06/2472406/06/24358 SODIUM mmol/L -- -- 136 -- 131* -- 133* POTASSIUM PLASMA mmol/L -- -- 3.7 -- 4.2 -- 4.0 CHLORIDE mmol/L -- -- 97 -- 97 -- 98 CO2 mmol/L -- -- 30 -- 25 -- 26 ANIONGAP mmol/L -- -- 9 -- 9 -- 9 GLUCOSE mg/dL -- -- 175 -- 133 -- 241* POC GLUCOSE MONITOR mg/dL 267* 187 -- < > -- < > -- BUN SERUM mg/dL -- -- 17 -- 17 -- 20 CREATININE mg/dL -- -- 0.70 -- 0.66 -- 0.68 CALCIUM mg/dL -- -- 9.0 -- 8.9 -- 8.8 ALBUMIN g/dL -- -- 3.2* -- 2.8* -- 2.9* ALK PHOS Units/L -- -- 217* -- 219* -- 238* ALT Units/L -- -- 5* -- <5* -- <5* AST Units/L -- -- 21 -- 19 -- 16 BILIRUBIN TOTAL mg/dL -- -- 0.5 -- 0.5 -- 0.4 < > = values in this interval not displayed. Recent Labs Lab Units 06/08/2442906/07/240 06/06/24 0359 ALK PHOS Units/L 217* 219* 238* BILIRUBIN TOTAL mg/dL 0.5 0.5 0.4 TOTAL PROTEIN g/dL 7.6 7.2 7.3 ALT Units/L 5* <5* <5* AST Units/L 21 19 16 Recent Labs Lab Units 06/08/240 06/07/24 0400 06/06/24 0359 MAGNESIUM mg/dL 2.0 1.9 1.8 Recent Labs Lab Units 06/05/24 0755 PROTIME (PT) sec 20.9* INR 1.91* Lab Results Component Value Date GLUCOSE 267 (H) 06/08/2024 GLUCOSE 187 06/08/2024 GLUCOSE 175 06/08/2024 Implant: Implants ICD Icd - Implanted Chest Wall As of 05/29/2024 Status: Implanted Stent Stent - Implanted Heart As of 05/29/2024 Status: Implanted General Precautions (If Blank, None Found): Isolation Status: No active isolations Nutritional Status and in-house recommendations: Dietary Orders (From admission, onward) Start Ordered 06/05/24 1532 Adult Diet Restricted; Low Fat, Low Chol, Low Na; Consistent Carb 2000 kilo Diet effective now Question Answer Comment (CH) Diet type Restricted Fat / Sodium Restriction: Low Fat, Low Chol, Low Na Diabetic: Consistent Carb 2000 kilo 06/05/24 1540 05/30/24 2100 Bedtime snack At bedtime Comments: If bedtime BG is less than 100mg/dl, give patient a 15 gram carbohydrate snack. 05/29/24 2201 Anticoagulation Indication: INR: 06/05/2024: 1.91 (H) Warfarin Administrations (last 168 hours) None Oxygen Status: No data found. Wound Care Instructions Other Instructions Ambulatory referral to Home Health Service Line: Home Health and Infusion Primary disciplines requested: Snf Physical Therapy Secondary disciplines requested: Occupational Therapy Home Health Services: IV Catheter Maintenance Disease and Medication Management IV Catheter Types: PICC Line Number of Lumens: 1 IV Catheter Flush Care Instructions: Evaluate and manage the IV catheter to maintain patency IV Catheter Dressing Change Instructions: Evaluate, manage, and change the dressing weekly Infusion Services: IV Catheter Maintenance (Infusion) Infusion Therapy Infusion Therapy: Antibiotic Therapy How many antibiotic therapies: 1 ABX Medication 1: ancef ABX Dose 1: 2000mg ABX Route 1: IV ABX Frequency 1: [id number] ABX Therapy Duration 1: until 06/08 Physician to follow patient's care (the person listed here will be responsible for signing ongoing orders): PCP Requested Start of Care Date: Today (please call ahead to confirm) I certify that, based on my findings, the following services are medically necessary skilled home health services: Therapy to Eval/Tx Other Comment: IV antibiotics I certify that, based on my findings, the following services are medically necessary skilled home infusion services: Other (Infusion) Comment: IV antibiotics I attest that I or another qualified licensed provider saw the patient 90 days prior to or 30 days post admission and this face to face encounter meets the necessary Home Health requirements. The face to face encounter occurred on (date): 06/01/2024 The encounter with the patient was in whole, or in part, for the following medical condition, whichis the primary reason for home health care. (List medical condition): Endocarditis Clinical findings that support the need for home care: Medical condition requiring skilled assessment/education I certify that my clinical findings support patient's homebound status. Homebound criteria met because: Requires assistance of another to leave home safely Water Bill assistance: What is LIWAP? Customers who are struggling to keep up with their wastewater (bag sewer) bills may qualify for assistance through the federally funded LIHWAP payment . This program is NOT through [facility]. LIHWAP is administered by the [place] [employer]. You will need to apply online at [email or web address].nd.gov/utility- assistance or call [phone] to ask a steamer gum candy to mail you an application. Am I Eligible? You may be eligible for help if you: Are responsible for paying the utilities for your home. Are a [place] citizen or have been legally admitted for permanent residence. Have $3,000 or less in your bank, chcf, or investment accounts. Meet specific income guidelines here. If all household members currently get Temporary Assistance (fajardo) or SNAP (Food Stamp) benefits, you are automatically eligible for LIHWAP, but you must still apply for the program to get the benefit. How Much Can I Receive and What Does it Cover? The maximum amount you could get is a one-time $750.00 payment, per cal years (July thru June)-as funds are available. LIplacespourtous.comP can help with water AND wastewater: Disconnection or reconnection fees. Threat of disconnection. Current and past-due bills. If you are applying for assistance with your water and wastewater bills-you must provide all required information for BOTH at the same time. More details available when you apply. You can apply for LISidecarWAP two different ways: Submit your application and documents online here; or Submit your printed application by mail, fax, or in person to your Contracted Agency The contracted agencies for residents in [facility] and the [facility] are as follows: [facility] ([facility]) [address] [address] [address]: [facility] [address] [place] [phone] [facility] Phone number: [facility] Phone number: Active LDAs (If Blank, None Found): Patient Emergency Contact: Primary Emergency Contact: Peg Rice, Immunization Status at Discharge Immunization History Administered Date(s) Administered Pfizer SARS-CoV-2 Monovalent Vaccination (12+ Yrs) PURPLE 12/23/2020, 01/18/2021 Coleen Samuels MD documented in this encounter Discharge Instructions * Discharge Instr - Diet* Nikki Gallegos RD - 06/05/2024 3:16 PM CDT Recommend to follow a consistent [...] and drink water throughout the day. Call [phone] to speak with a dietitian about anydiet related concerns. Recommend to follow up with outpatient nutrition counseling, ask your doctorfor referral and call [phone] to make an appointment. Additional Resources [place] [employer]: www.diabetes.org/nutrition [place] [employer]: www.heart.org/en/healthy-living/healthy-eating * Discharge Instr - Other Orders* Ivette Harrington MSW - 06/01/2024 3:48 PM CDT Water Bill assistance: What is LIWAP? Customers who are struggling to keep up with their wastewater (bag sewer) bills may qualify for assistance through the federally funded LIHWAP payment . This program is NOT through [facility]. LIHWAP is administered by the [place] [employer]. You will need to apply online at [facility].nd.gov/utility- assistance or call [phone] to ask a steamer gum candy to mail you an application. Am I Eligible? You may be eligible for help if you: Are responsible for paying the utilities for your home. Are a [place] citizen or have been legally admitted for permanent residence. Have $3,000 or less in your bank, chcf, or investment accounts. Meet specific income guidelines here. If all household members currently get Temporary Assistance (fajardo) or SNAP (Food Stamp) benefits, you are automatically eligible for LIHWAP, but you must still apply for the program to get the benefit. How Much Can I Receive and What Does it Cover? The maximum amount you could get is a one-time $750.00 payment, per Federal staci years (July thru June)-as funds are available. [employer] can help with water AND wastewater: Disconnection or reconnection fees. Threat of disconnection. Current and past-due bills. If you are applying for assistance with your water and wastewater bills-you must provide all required information for BOTH at the same time. More details available when you apply. You can apply for LIHWAP two different ways: Submit your application and documents online here; or Submit your printed application by mail, fax, or in person to your Contracted Agency The contracted agencies for residents in [facility] and the [facility] are as follows: [facility], [facility] ([facility]) [address] [address] [address]: [facility] ([facility] [address] [place] [phone] [facility] Phone number: JESSICA Phone number: * Attachments The following attachments cannot be sent through Care Everywhere. * Pain Management (General Information) (Algerian) * 13C Urea and Citric acid (By mouth) (Algerian) documented in this encounter Medications at Time [...] mcg total) by mouth every morning multivit iwqyrycn-wcki-SZ- calcium (THERA-M) 9 mg iron-400 mcg tablet Take 1 tablet by mouth daily omeprazole (PriLOSEC) 20 mg capsule Take 1 capsule (20 mg total) by mouth daily Xarelto 20 mg tablet Take 1 tablet (20 mg total) by mouth daily with dinner BASAGLAR 100 unit/mL (3 mL) pen for injection Inject 18 Units under the skin daily 02/09/2024 4 carvediloL (COREG) 25 mg tablet Take 1 tablet (25 mg total) by mouth 2 (two) times a day with meals 05/06/2017 4 ceFAZolin (ANCEF) 2,000 mg/100 mL IVPBIndications:e ndocarditis Infuse 100 mL (2 g total) into a venous catheter every 8 (eight) hours for 14 days 4200 mL 06/08/2024 4 dilTIAZem (CARDIZEM) 30 mg tablet Take 1 tablet (30 mg total) by mouth 2 (two) times a day 04/28/2017 4 dofetilide (TIKOSYN) 500 mcg capsuleIndication s:cardiac arrhythmia Take 1 capsule (500 mcg total) by mouth 2 (two) times a day for 711 doses 60 capsule 11 06/08/2024 4 Entresto 24-26 mg tablet Take 1 tablet by mouth 2 (two) times a day 09/11/2021 4 Farxiga 10 mg tablet Take 1 tablet (10 mg total) by mouth daily 06/01/2022 4 furosemide (LASIX) 40 mg tablet Take 1 tablet (40 mg total) by mouth daily 04/02/2024 4 HYDROcodone-aceta minophen (NORCO) 5-325 mg per tabletIndications :Pain Take 1 tablet by mouth 4 (four) times a day as needed for pain for up to 7 days 15 tablet 06/08/2024 4 midodrine (PROAMATINE) 5 mg tabletIndications :Symptomatic Orthostatic Hypotension Take 1 tablet (5 mg total) by mouth 3 (three) times a day before meals 90 tablet 06/08/2024 4 nortriptyline (PAMELOR) 10 mg capsule Take 1 capsule (10 mg total) by mouth daily 05/18/2024 4 NovoLOG 100 unit/mL (3 mL) pen for injection Inject 10 Units under the skin 3 (three) times a day with meals Plus slide 07/18/2023 4 potassium chloride ER 20 mEq CR tablet Take 1 tablet (20 mEq total) by mouth daily 01/20/2024 4 documented as of this encounter Ordered Prescriptions Prescription Sig Dispense Quantity Refills Last Filled Start Date End Date midodrine (PROAMATINE) 5 mg tabletIndications: Symptomatic Orthostatic Hypotension Take 1 tablet (5 mg total) by mouth 3 (three) times a day before meals 90 tablet 06/08/2024 4 HYDROcodone-acetam inophen (NORCO) 5-325 mg per tabletIndications: Pain Take 1 tablet by mouth 4 (four) times a day as needed for pain for up to 7 days 15 tablet 06/08/2024 4 dofetilide (TIKOSYN) 500 mcg capsuleIndications :cardiac arrhythmia Take 1 capsule (500 mcg total) by mouth 2 (two) times a day for 711 doses 60 capsule 11 06/08/2024 4 ceFAZolin (ANCEF) 2,000 mg/100 mL IVPBIndications:en docarditis Infuse 100 mL (2 g total) into a venous catheter every 8 (eight) hours for 14 days 4200 mL 06/08/2024 4 documented in this encounter Discharge Disposition Disposition Code Departure Means Destination Comment s Discharge to [facility] ([place], [place]) documented in this encounter Progress Notes * Cora Clarke PTA - 06/08/2024 3:01 PM CDT Physical Therapy PT PROGRESS NOTE PATIENT'S NAME:Lei Rodriguez :1960 AGE:63 y.o. ROOM:[facility] [address] Past Medical History: Diagnosis Date A-fib ([facility]) ([facility] CHF (congestive heart failure) ([facility]) ([facility]) Diabetes mellitus ([facility]) GERD (gastroesophageal reflux disease) Hypertension Intellectual disability OAB (overactive bladder) Sleep apnea Thyroid disease Past Surgical History: Procedure Laterality Date CARDIAC DEFIBRILLATOR PLACEMENT CHOLECYSTECTOMY INSERT / REPLACE / REMOVE PACEMAKER IR PICC LINE PLACEMENT > 5 YEARS N/A 06/05/2024 OTHER SURGICAL HISTORY 05/31/2024 CHANCE/CARDIOVERSION Patient Active Problem List Diagnosis Endocarditis SOB (shortness of breath) Acute on chronic systolic congestive heart failure ([facility]) ([facility]) Neck pain Hyponatremia Chronic a-fib ([facility]) ([facility]) Type 2 diabetes mellitus, with long-term current use of insulin ([facility]) Hypothyroid JOSE (obstructive sleep apnea) Diabetes mellitus with hyperglycemia ([facility]) ([facility]) Traumatic hematoma of right upper arm Hypotension TIME IN: 1441 TIME OUT: 1457 SUBJECTIVE Okay. MENTAL STATUS/ORIENTATION: Alert and oriented x 3; pt able to correctly identify month but requiredprompting stating initially then 2023 in response to what month is it currently PAIN: Pre-therapy pain level: 0/10 Pain location: n/a Pain intervention: n/a Post-therapy pain level/response to intervention: 0/10 OBJECTIVE PRECAUTIONS: fall and bed / chair alarm APPEARANCE/POSTURE: supine rotated towards left side, Shereen DASILVA and Lawson DASILVA present at bedside, bed alarm activated, call light in reach, telemetry MOBILITY DOCUMENTATION: Bed Mobility/Transfers: Supine to sit : MIN A; completed with HOB at 0 deg and no rail assistance. Pt required manual assistance for effective positioning and hand placement to increase gross overall independence Sit to supine: SPV; completed with HOB at 0 deg and no rail assistance Sit<>stand : SPV; warranted due to 75% carryover with appropriate hand placement for pushing off/ reaching back for seated surface Pivot: SPV with use of personal w/w Gait: x 100ft with personal w/w and SPV Noted deficits; verbal instruction provided to modulate pacing, inconsistent step / stride length, ineffective amy TREATMENT: Seated BLE there.ex. of hip, knee, and ankle within sagittal plane x 10 reps x 1 set APPEARANCE/POSTURE (end of session): appearance otherwise unchanged from PT arrival in room EDUCATION:bed mobility , therapeutic activity, therapeutic exercises , functional transfer training, gait training , strengthening, endurance training, safety , durable medical equipment education, and positioning RESPONSE TO EDUCATION: demonstrated understanding, needs reinforcement, and verbalizes understanding ASSESSMENT Activity tolerance/response to P.T.: Good tolerance with all outlined skilled interventions. Pt alert and agreeable to participate as able. Noted carryover with appropriate hand placement during sit<> stand transfers this session. Communication completed with Lawson DASILVA this date; braxton RN pt received pain medication prior to sessio n Barriers to learning: Physical Barriers to discharge: Confusion, Limited safety awareness, Limited insight into deficits, Long standing deficits, and Medical complications Patient continues progressing toward previously set goals which remain appropriate at this time. PLAN PT Discharge Recommendations this date: PT Recommendation/Plan: Home with family, Home with 24 hour supervision, Home Health PT PT Frequency during current admission: Daily, 3-5x/wk CARE PLAN Multi-Disciplinary Problems (from Physical Therapy) Active Problems Problem: PT Misc Start Date: 06/02/24 Goal Start Date Expected End Date End Date PT LTG - Misc 1 06/02/24 06/09/24 -- Goal Details: Perform bed mobility with modified indep assist. Progressing Goal Start Date Expected End Date End Date PT LTG - Misc 2 06/02/24 06/09/24 -- Goal Details: Perform functional transfers with modified indep assist. Progressing Goal Start Date Expected End Date End Date PT LTG - Misc 3 06/02/24 06/09/24 -- Goal Details: Gait 150' with WW with modified indep assist. Progressing Goal Start Date Expected End Date End Date PT LTG - Misc 4 06/02/24 06/09/24 -- Goal Details: Perform 1 step with modified indep assist. Progressing Goal Start Date Expected End Date End Date PT LTG - Misc 5 06/02/24 06/09/24 -- Goal Details: Perform LE HEP with SBA Progressing If this is the last note, please consider this the discharge summary. Cosigned by Jennifer Mix PT at 06/08/2024 4:06 PM CDT * Coelen Samuels MD - 06/08/2024 2:03 PM CDT Daily Progress CHIEF COMPLAINT/ BRIEF HOSPITAL COURSE Lei Rodriguez is a 63 year old female with PMHx of Afib, CHF, T2DM, GERD, HTN, intellectual disability, JOSE, AICD, hypothyroidism who presented to on 05/29 with abdominal pain. Limited historian due to intellectual disability. She initially presented to [facility] on 05/[facility] with n/v/dand abdominal pain. She was found to have endocarditis with positive blood cultures growing staph au reus. She was started on vanc, zosyn, and IVF initially, now she is on ancef. She was also complaining of right neck pain, but was found to have no acute pathology on CT head and CT C-spine. On 05/30,dislodged catheter vs wire seen in right pulm artery on CT chest. CHANCE performed showing no TV vegetation, but presence of catheter vs wire in right pulm artery and left atrial appendage clot. Risks/benefits discussed with IR and CTS with no plan for surgical intervention. She is being followed by ID for antibiotic management. No blood cultures to date. Initially, end date for ancef was 06/08, but switched to 06/22 to complete 4 weeks due to AICD in place. PICC line was placed on 06/05 but had RUE swelling. CXR on 06/06 showing successful placement. INTERVAL HISTORY Patient is doing better today. We are anticipating discharge and facilities found but we are still awaiting insurance authorization. Unfortunately, if insurance authorization was not obtained today will likely be Tuesday before we can get her out Review of Systems Gen: No fever, No chills, CV: No chest pain Resp: No SOB GI: No nausea, No vomiting, abdominal pain controlled Objective: Vitals: 24hr Min/Max: Temp Min: 36.4 ??C (97.5 ??F) Max: 37.4 ??C (99.4 ??F) Pulse Min: 81 Max: 107 BP Min: 100/54 Max: 132/60 Resp Min: 18 Max: 22 SpO2 Min: 90 % Max: 93 % Most Recent : Vitals: 06/08/24 0422 06/08/24 0757 06/08/24 1042 06/08/24 1125 BP: 132/60 127/85 100/54 BP Location: Left arm Left arm Left arm Patient Position: Sitting Lying Pulse: 88 107 92 81 Resp: 22 20 20 Temp: 36.8 ??C (98.3 ??F) 36.4 ??C (97.5 ??F) 36.7 ??C (98.1 ??F) TempSrc: Oral Oral Oral SpO2: 93% 93% 90% Weight: Height: Physical Exam: Gen:Well built female Lungs:Symmetrical breath sounds b/l Heart:S1,S2 heard Abdomen:Soft, NT, BS+ Extremities: Patient has large hematoma on left side at site of PICC. This is actually smaller thanline that Drawn today daniel 10/17/2027 which shows some mild improvement. PICC line appears to be flushing well Neuro:Awake, alert, answers questions Lab/Radiology/Diagnostic Review: Recent Results (from the past 24 hour(s)) POCT glucose Collection Time: 06/07/24 4:56 PM Result Value Ref Range Glucose, POC 137 70 - 199 mg/dL POCT glucose Collection Time: 06/07/24 10:02 PM Result Value Ref Range Glucose, POC 130 70 - 199 mg/dL CBC with auto differential Collection Time: 06/08/24 4:30 AM Result Value Ref Range WBC 5.5 3.8 - 9.9 K/cumm Hgb 11.9 11.9 - 15.5 g/dL Hct 37.0 35.6 - 45.5 % Plt 295 150 - 400 K/cumm MPV 9.4 9.1 - 12.3 fL RBC 3.70 (L) 3.90 - 5.20 M/cumm MCV 100.0 (H) 81.3 - 96.4 fL MCH 32.2 27.1 - 33.3 pg MCHC 32.2 (L) 32.3 - 35.7 g/dL RDW CV 12.8 11.1 - 14.9 % RDW SD 47.1 35.7 - 48.1 fL NRBC abs 0.00 0.00 - 0.01 K/cumm Comprehensive metabolic panel Collection Time: 06/08/24 4:30 AM Result Value Ref Range Sodium 136 135 - 145 mmol/L Potassium, pl 3.7 3.3 - 4.9 mmol/L Chloride 97 97 - 110 mmol/L CO2 30 22 - 32 mmol/L Anion gap 9 2 - 15 mmol/L BUN 17 6 - 25 mg/dL Creatinine 0.70 0.60 - 1.10 mg/dL Glucose 175 70 - 199 mg/dL Calcium 9.0 8.5 - 10.3 mg/dL Bilirubin, total 0.5 0.1 - 1.2 mg/dL Protein, pl 7.6 6.5 - 8.5 g/dL Albumin 3.2 (L) 3.5 - 5.0 g/dL Alk phos 217 (H) 40 - 130 Units/L ALT 5 (L) 7 - 45 Units/L AST 21 10 - 45 Units/L Magnesium Collection Time: 06/08/24 4:30 AM Result Value Ref Range Magnesium 2.0 1.4 - 2.5 mg/dL Phosphorus Collection Time: 06/08/24 4:30 AM Result Value Ref Range Phosphorus, pl 3.4 2.3 - 4.5 mg/dL Differential, auto Collection Time: 06/08/24 4:30 AM Result Value Ref Range Neutrophil abs 3.3 1.5 - 6.5 K/cumm Imm gran abs 0.1 0.0 - 0.1 K/cumm Lymphocyte abs 1.2 0.8 - 3.3 K/cumm Monocyte abs 0.7 0.2 - 0.8 K/cumm Eosinophil abs 0.2 0.0 - 0.5 K/cumm Basophil abs 0.1 0.0 - 0.1 K/cumm Neutrophil pct 59.9 % Imm gran pct 1.1 % Lymphocyte pct 21.6 % Monocyte pct 13.2 % Eosinophil pct 2.7 % Basophil pct 1.5 % eGFR Collection Time: 06/08/24 4:30 AM Result Value Ref Range eGFR >90 >=60 mL/min/1.73 m2 POCT glucose Collection Time: 06/08/24 6:45 AM Result Value Ref Range Glucose, POC 187 70 - 199 mg/dL POCT glucose Collection Time: 06/08/24 12:08 PM Result Value Ref Range Glucose, POC 267 (H) 70 - 199 mg/dL ECG 12 lead Result Date: 05/30/2024 Narrative: Vent Rate: 109 bpm RR Interval: 548 msec HI Interval: 0 msec QRS Duration: 149 msec QT Interval: 398 msec QTC Interval: 462 msec P-R-T [place]: 0 - 96 - 89 degrees IMPRESSION: ATRIAL FIBRILLATION WITH RAPID VENTRICULAR RESPONSE BORDERLINE RIGHT AXIS DEVIATION [QRS AXIS > 90] INTRAVENTRICULAR CONDUCTION DELAY [130+ ms QRS DURATION] ABNORMAL ECG Unchanged compared to an EKG done earlier on May 30, 2024 Electronically Signed By: Dr. Shiloh Muhammad [facility] Chest WO Contrast Result Date: 05/30/2024 [...] Complete W Doppler/CF Result Date: 05/30/2024 Narrative: [place] [address] Echocardiogram Report Patient Name: LEI RODRIGUEZ V : 1960 Study Date: 05/30/2024 7:47:08 AM Gender: F Tech: Location: [id number] Ref Provider: TY MCFARLAND Height(Cm): 165 BSA: [...] 33.1 percent AV Mean PG 3 mmHg [id number] 5.71 [ 3.80 - 5.20 ] cm [...] Trivial pericardial effusion. Electronically Signed By: Coleen Kwok DO, RUBIO, ANDREE, MELISSA 2024-05-30 09:18:05 CDT [...] Rate: 86 bpm RR Interval: 697 msec HI Interval: 0 msec QRS Duration: 145 msec QT Interval: 438 msec QTC Interval: 481 msec P-R-T [place]: 0 - 101 - 95 degrees IMPRESSION: ATRIAL FIBRILLATION RIGHT AXIS DEVIATION [QRS AXIS > 100] INTRAVENTRICULAR CONDUCTION DELAY [130+ ms QRS DURATION] ABNORMAL ECG Unchanged compared to 05/29/2021 Electronically Signed By: Dr. Shiloh Muhammad [facility] CT Chest PE (CTA) W Contrast Result Date: 05/30/2024 Narrative: EXAMINATION: CT CHEST PE (CTA) W CONTRAST HISTORY: Chest pain ORDER DATE: 05/30/2024 3:20AM TECHNIQUE: CT chest images were acquired using a chest angiographic protocol with 3-D imaging optimized for PE is obtained [id number] mL of Optiray 350 IV. 2D Coronal [...] findings as described above. Stat report by [facility] . Electronically signed by: Andrea Abernathy M.D. [...] and partially calcified bulging disc contributing to [id number] central spinal stenosis. Disc osteophyte complex also contributing to qqca-[id number]-reeiljbs central spinal stenosis at C4-C5 level. No significant disc bulge or herniation. No severe spinal canal stenosis. Uncovertebral joint hypertrophy contributing to multilevel bilateral neural foraminal stenosis. Lungs: Lung apices are normal. Soft tissues: Unremarkable. Impression: No acute cervical spine injury. Stat report by [facility] Stat report by [facility] Electronically signed by: Andrea Abernathy M.D. CT [...] No acute intracranial findings. Stat report by [facility] Electronically signed by: Andrea Abernathy M.D. ECG 12 lead Result Date: 05/30/2024 Narrative: Vent Rate: 93 bpm RR Interval: 645 msec HI Interval: 0 msec QRS Duration: 97 msec QT Interval: 197 msec QTC Interval: 247 msec P-R-T [place]: 0 - 118 - 0 degrees IMPRESSION: [...] Electronically Signed By: Antonio Carlos MD Assessment/Plan Endocarditis: Continue ancef till 06/22 as per ID. Blood cultures ngtd. ID and Cardiology Consulted. No vegetations were seen on the tricuspid valve but there is that this lodged bleed/catheter and the pulmonary artery. There is also a clot in the LL a, probably an appendage clot, so synchronized cardioversion has been canceled Patient needs to follow-up with cardiology Acute on chronic Systolic CHF Troponins flat. Echo shows EF 30%. On IV lasix. Evidence of volume overload on CT chest. On Entresto, coreg. Neck pain Seem to be MSK. CT head/C spine no acute pathology. Flexeril x1 8-. Chronic afib Continue coreg, dilt, and Xarelto, Tikosyn as per Cards DM Some elevated blood sugars on Lantus and SSI. Added scheduled Humalog .Increased lantus dose and scheduled Humalog dose. Will discharge on current regimen Hypothyroidism On Synthroid JOSE Apparently was not using her NPPV at OSH, Defer BMI 47.22 DVT ppx: Xarelto MDM:Mod Disposition:SNF as antibiotic duration extended as per ID recs to 06/22 due to presence of AICD Expected Date of Discharge: Await SNF- 06/08 Barriers to Discharge:Await SNF approval by insurance These fluid and electrolyte abnormalities are being treated, evaluated or monitored: Hyperkalemia-resolved Hyponatremia-monitor Coleen Samuels M.D. * Eben Pettit MD - 06/08/2024 11:21 AM CDT Infectious Disease Consult Consulting Physician: Eben Pettit MD. Reason for consult: MSSA bacteremia/Suspected endocarditis tricuspid valve. Review of systems/interval history. Sitting up in bed No new complaint Afebrile Normal WBC count blood cultures no growth from 05/30 Infectious Disease is following due to ongoing IV antibiotic. Objective: Vitals: 24hr Min/Max: Temp Min: 36.4 ??C (97.5 ??F) Max: 37.4 ??C (99.4 ??F) Pulse Min: 83 Max: 107 BP Min: 103/61 Max: 132/60 Resp Min: 16 Max: 22 SpO2 Min: 92 % Max: 95 % Most Recent : Vitals: 06/08/24 0016 06/08/24 0422 06/08/24 0757 06/08/24 1042 BP: 117/52 132/60 127/85 BP Location: Left arm Left arm Left arm Patient Position: Sitting Pulse: 83 88 107 92 Resp: 20 Temp: 37.1 ??C (98.7 ??F) 36.8 ??C (98.3 ??F) 36.4 ??C (97.5 ??F) TempSrc: Axillary Oral Oral SpO2: 93% 93% 93% Weight: Height: Physical Exam: General appearance: alert, cooperative, no distress HEENT: (-)icterus, Oropharnyx is normal, NCAT Neck: No palpable LN Lungs: breath sounds normal and symmetric; minimal respiratory effort, no r/w/c Heart: regular rhythm, normal S1 and S2, no m/r/g Abdomen: soft without mass, non-tender, +bowel sounds, no HSM Extremities/Skin: no gross deformities, FROM, no new rashes, no ulcerations Vascular: no Edema, pulses present bilaterally Neuro: No focal deficits Psych: Appropriate mood and affect , intellectual disability right upper extremity PICC line site clean Labs Reviewed. Recent Labs Lab Units 06/08/24 0430 06/07/24 0400 06/06/24 0359 WBC K/cumm 5.5 6.1 5.6 HEMOGLOBIN g/dL 11.9 11.8* 11.8* HEMATOCRIT % 37.0 36.7 37.3 PLATELETS K/cumm 295 299 319 Recent Labs Lab Units 06/08/24 0430 06/07/24 0400 06/06/24 0359 BUN SERUM mg/dL 17 17 20 CREATININE mg/dL 0.70 0.66 0.68 Lab Results Component Value Date ALT 5 (L) 06/08/2024 AST 21 06/08/2024 ALKPHOS 217 (H) 06/08/2024 BILITOT 0.5 06/08/2024 Cultures Blood cultures 05/30 no growth so far Outside hospital 01/11 blood cultures reported to be positive for Staph aureus MSSA. From 05/21 and 05/22. [facility] echo reported as Tricuspid valve vegetation. CT chest noncontrast. 05/30 IMPRESSION: 1. Redemonstrated curvilinear radiopaque density extending from the proximal right lower lobe pulmonary artery into a subsegmental lateral basilar branch favors a catheter or wire fragment. 2. Findings most suggestive of heart failure with cardiomegaly, small volume pericardial effusion, and small bilateral pleural effusions and mild pulmonary edema. CT chest PE protocol 05/30 IMPRESSION: 1. Motion degraded evaluation of the pulmonary [...] LFTs. 5. Additional findings as described above. Assessment: MSSA bacteremia Documented at outside hospital, unknown date so far will follow-up with [facility]. 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. She underwent CHANCE, with no visible valve vegetation. Repeat blood cultures 05/30 remain no growth so far. She has AICD in place. Dislodged catheter/lead.. PA Atrial fibrillation CHF GERD Hypertension Obstructive sleep apnea Thyroid disease Intellectual disability Plan: Discussed with Dr. Neli Hutchinson, no vegetation seen on tricuspid valve. There is a dislodged lead/catheter, In Pulmonary artery, which is also reported in CT. There was a clot in [place], probably an appendage clot, hence synchronized Cardioversion was canceled. Continue on Ancef for now Follow up on blood cultures. Monitor fever curve and WBC count. Called microlab [facility] blood cultures 05/25 NG. blood cultures were positive for Staph aureus 05/21 and 05/22 Blood cultures were negative at outside hospital from 05/25, blood cultures remain negative at this[facility] from 05/30 CT abdomen and pelvis With no significant infectious findings Continue Ancef, 4 weeks total due to presence of ICD, end date 06/22 IR guided PICC line placement. Right upper extremity. Electrophysiology/Cardiology team is following plan for Bi V ICD after completing antibiotic course. CBC, CMP to be obtained weekly while on IV Ancef and labs to be faxed to [facility]. Will follow. Placement in progress, likely SNF to complete antibiotics. Eben Pettit MD 06/08/2024 [place] [place] [facility] Office: [phone] Fax: [phone] Voice recognition software was used to complete this document, therefore, skiver welt end variances may occur. * Coleen Samuels MD - 06/07/2024 2:00 PM CDT Daily Progress CHIEF COMPLAINT/ BRIEF HOSPITAL COURSE Lei Rodriguez is a 63 year old female with PMHx of Afib, CHF, T2DM, GERD, HTN, intellectual disability, JOSE, AICD, hypothyroidism who presented to on 05/29 with abdominal pain. Limited historian due to intellectual disability. She initially presented to [facility] on 05/21 with n/v/dand abdominal pain. She was found to have endocarditis with positive blood cultures growing staph au reus. She was started on vanc, zosyn, and IVF initially, now she is on ancef. She was also complaining of right neck pain, but was found to have no acute pathology on CT head and CT C-spine. On 05/30,dislodged catheter vs wire seen in right pulm artery on CT chest. CHANCE performed showing no TV vegetation, but presence of catheter vs wire in right pulm artery and left atrial appendage clot. Risks/benefits discussed with IR and CTS with no plan for surgical intervention. She is being followed by ID for antibiotic management. No blood cultures to date. Initially, end date for ancef was 06/08, but switched to 06/22 to complete 4 weeks due to AICD in place. PICC line was placed on 06/05 but had RUE swelling. CXR on 06/06 showing successful placement. INTERVAL HISTORY Patient is feeling about the same today. CTA was done which does not show any large hematomas, abscesses in the arm. Rapid response was called on 06/06 secondary to patient having increasing swellingin her arm. I had previously looked at pictures after being informed by nursing, but apparently thelesion got larger something called a rapid response. My colleague came and daniel a line around hematoma. There was good flushing in patient's PICC line still appeared to be patent. Review of Systems Gen: No fever, No chills, CV: No chest pain Resp: No SOB GI: No nausea, No vomiting, abdominal pain controlled Objective: Vitals: 24hr Min/Max: Temp Min: 36.5 ??C (97.7 ??F) Max: 37.1 ??C (98.8 ??F) Pulse Min: 78 Max: 99 BP Min: 94/61 Max: 145/94 Resp Min: 16 Max: 18 SpO2 Min: 93 % Max: 97 % Most Recent : Vitals: 06/07/24 0516 06/07/24 0600 06/07/24 0903 06/07/24 1235 BP: 108/70 130/70 BP Location: Left arm Left arm Patient Position: Sitting Sitting Pulse: 86 99 91 Resp: 18 16 Temp: 36.5 ??C (97.7 ??F) 37.1 ??C (98.8 ??F) TempSrc: Oral Oral SpO2: 93% 95% Weight: 113.6 kg (250 lb 6.4 oz) Height: Physical Exam: Gen:Well built female Lungs:Symmetrical breath sounds b/l Heart:S1,S2 heard Abdomen:Soft, NT, BS+ Extremities: Patient has large hematoma on left side at site of PICC. This is actually smaller thanline that Drawn today daniel 10/17/2027 which shows some mild improvement. PICC line appears to be flushing well Neuro:Awake, alert, answers questions Lab/Radiology/Diagnostic Review: Recent Results (from the past 24 hour(s)) POCT glucose Collection Time: 06/06/24 4:42 PM Result Value Ref Range Glucose, POC 127 70 - 199 mg/dL POCT glucose Collection Time: 06/06/24 6:51 PM Result Value Ref Range Glucose, POC 147 70 - 199 mg/dL POCT glucose Collection Time: 06/06/24 9:16 PM Result Value Ref Range Glucose, POC 123 70 - 199 mg/dL CBC with auto differential Collection Time: 06/07/24 4:00 AM Result Value Ref Range WBC 6.1 3.8 - 9.9 K/cumm Hgb 11.8 (L) 11.9 - 15.5 g/dL Hct 36.7 35.6 - 45.5 % Plt 299 150 - 400 K/cumm MPV 9.2 9.1 - 12.3 fL RBC 3.66 (L) 3.90 - 5.20 M/cumm MCV 100.3 (H) 81.3 - 96.4 fL MCH 32.2 27.1 - 33.3 pg MCHC 32.2 (L) 32.3 - 35.7 g/dL RDW CV 13.0 11.1 - 14.9 % RDW SD 48.0 35.7 - 48.1 fL NRBC abs 0.00 0.00 - 0.01 K/cumm Comprehensive metabolic panel Collection Time: 06/07/24 4:00 AM Result Value Ref Range Sodium 131 (L) 135 - 145 mmol/L Potassium, pl 4.2 3.3 - 4.9 mmol/L Chloride 97 97 - 110 mmol/L CO2 25 22 - 32 mmol/L Anion gap 9 2 - 15 mmol/L BUN 17 6 - 25 mg/dL Creatinine 0.66 0.60 - 1.10 mg/dL Glucose 133 70 - 199 mg/dL Calcium 8.9 8.5 - 10.3 mg/dL Bilirubin, total 0.5 0.1 - 1.2 mg/dL Protein, pl 7.2 6.5 - 8.5 g/dL Albumin 2.8 (L) 3.5 - 5.0 g/dL Alk phos 219 (H) 40 - 130 Units/L ALT <5 (L) 7 - 45 Units/L AST 19 10 - 45 Units/L Magnesium Collection Time: 06/07/24 4:00 AM Result Value Ref Range Magnesium 1.9 1.4 - 2.5 mg/dL Phosphorus Collection Time: 06/07/24 4:00 AM Result Value Ref Range Phosphorus, pl 2.9 2.3 - 4.5 mg/dL Differential, auto Collection Time: 06/07/24 4:00 AM Result Value Ref Range Neutrophil abs 4.1 1.5 - 6.5 K/cumm Imm gran abs 0.1 0.0 - 0.1 K/cumm Lymphocyte abs 1.1 0.8 - 3.3 K/cumm Monocyte abs 0.7 0.2 - 0.8 K/cumm Eosinophil abs 0.2 0.0 - 0.5 K/cumm Basophil abs 0.1 0.0 - 0.1 K/cumm Neutrophil pct 67.3 % Imm gran pct 0.8 % Lymphocyte pct 17.3 % Monocyte pct 10.6 % Eosinophil pct 2.5 % Basophil pct 1.5 % eGFR Collection Time: 06/07/24 4:00 AM Result Value Ref Range eGFR >90 >=60 mL/min/1.73 m2 POCT glucose Collection Time: 06/07/24 6:13 AM Result Value Ref Range Glucose, POC 144 70 - 199 mg/dL POCT glucose Collection Time: 06/07/24 11:56 AM Result Value Ref Range Glucose, POC 279 (H) 70 - 199 mg/dL ECG 12 lead Result Date: 05/30/2024 Narrative: Vent Rate: 109 bpm RR Interval: 548 msec HI Interval: 0 msec QRS Duration: 149 msec QT Interval: 398 msec QTC Interval: 462 msec P-R-T [place]: 0 - 96 - 89 degrees IMPRESSION: ATRIAL FIBRILLATION WITH RAPID VENTRICULAR RESPONSE BORDERLINE RIGHT AXIS DEVIATION [QRS AXIS > 90] INTRAVENTRICULAR CONDUCTION DELAY [130+ ms QRS DURATION] ABNORMAL ECG Unchanged compared to an EKG done earlier on May 30, 2024 Electronically Signed By: Dr. Shiloh Muhammad [facility] Chest WO Contrast Result Date: 05/30/2024 [...] Complete W Doppler/CF Result Date: 05/30/2024 Narrative: [place] [address] Echocardiogram Report Patient Name: LICO RODRIGUEZYumiko LEVINE : 1960 Study Date: 05/30/2024 7:47:08 AM Gender: F Tech: GUILHERME Location: [id number] Ref Provider: TY MCFARLAND Height(Cm): 165 BSA: [...] 33.1 percent AV Mean PG 3 mmHg [id number] 5.71 [ 3.80 - 5.20 ] cm [...] Trivial pericardial effusion. Electronically Signed By: Coleen Kwok DO, RUBIO, ANDREE, MELISSA 2024-05-30 09:18:05 CDT [...] in the medical record on 05/30/2024 at [facility]. Electronically signed by: Abilio Post M.D. ECG 12 lead Result Date: 05/30/2024 Narrative: Vent Rate: 86 bpm RR Interval: 697 msec HI Interval: 0 msec QRS Duration: 145 msec QT Interval: 438 msec QTC Interval: 481 msec P-R-T [place]: 0 - 101 - 95 degrees IMPRESSION: ATRIAL FIBRILLATION RIGHT AXIS DEVIATION [QRS AXIS > 100] INTRAVENTRICULAR CONDUCTION DELAY [130+ ms QRS DURATION] ABNORMAL ECG Unchanged compared to 05/29/2021 Electronically Signed By: Dr. Shiloh Muhammad [facility] Chest PE (CTA) W Contrast Result Date: 05/30/2024 Narrative: EXAMINATION: CT CHEST PE (CTA) W CONTRAST HISTORY: Chest pain ORDER DATE: 05/30/2024 3:20AM TECHNIQUE: CT chest images were acquired using a chest angiographic protocol with 3-D imaging optimized for PE is obtained [id number] mL of Optiray 350 IV. 2D Coronal [...] findings as described above. Stat report by [facility] . Electronically signed by: Andrea Abernathy M.D. [...] and partially calcified bulging disc contributing to [id number] central spinal stenosis. Disc osteophyte complex also contributing to cchm-zh-dpkzrczy central spinal stenosis at C4-C5 level. No significant disc bulge or herniation. No severe spinal canal stenosis. Uncovertebral joint hypertrophy contributing to multilevel bilateral neural foraminal stenosis. Lungs: Lung apices are normal. Soft tissues: Unremarkable. Impression: No acute cervical spine injury. Stat report by [facility] Stat report by [facility] Electronically signed by: Andrea Abernathy M.D. CT [...] No acute intracranial findings. Stat report by [facility] Electronically signed by: Andrea Abernathy M.D. ECG 12 lead Result Date: 05/30/2024 Narrative: Vent Rate: 93 bpm RR Interval: 645 msec HI Interval: 0 msec QRS Duration: 97 msec QT Interval: 197 msec QTC Interval: 247 msec P-R-T [place]: 0 - 118 - 0 degrees IMPRESSION: [...] Electronically Signed By: Antonio Carlos MD Assessment/Plan Endocarditis: Continue ancef till 06/22 as per ID. Blood cultures ngtd. ID and Cardiology Consulted. No vegetations were seen on the tricuspid valve but there is that this lodged bleed/catheter and the pulmonary artery. There is also a clot in the LL a, probably an appendage clot, so synchronized cardioversion has been canceled Acute on chronic Systolic CHF Troponins flat. Echo shows EF 30%. On IV lasix. Evidence of volume overload on CT chest. On Entresto, coreg. Neck pain Seem to be MSK. CT head/C spine no acute pathology. Flexeril x1 -. Chronic afib Continue coreg, dilt, and Xarelto, Tikosyn as per Cards DM Some elevated blood sugars on Lantus and SSI. Added scheduled Humalog .Increased lantus dose and scheduled Humalog dose on 05-31 as blood sugars elevated. One elevated blood sugar on 06-05. Hypothyroidism On Synthroid JOSE Apparently was not using her NPPV at OSH, Defer BMI 47.22 DVT ppx: Xarelto MDM:Mod Disposition:SNF as antibiotic duration extended as per ID recs to 06/22 due to presence of AICD Expected Date of Discharge: Await SNF- 06/08 Barriers to Discharge:Await SNF approval by insurance These fluid and electrolyte abnormalities are being treated, evaluated or monitored: Hyperkalemia-resolved Hyponatremia-monitor Coleen Samuels M.D. * Ty Mcfarland MD - 06/07/2024 11:00 AM CDT EP remote follow-up note It is okay to cancel telemetry. Patient has defibrillator. Order was entered * Eben Pettit MD - 06/07/2024 10:27 AM CDT Infectious Disease Consult Consulting Physician: Eben Pettit MD. Reason for consult: MSSA bacteremia/Suspected endocarditis tricuspid valve. Review of systems/interval history. Ambulating in hallway No new complete Afebrile Normal WBC count blood cultures no growth from 05/30 Infectious Disease is following due to ongoing IV antibiotic. Objective: Vitals: 24hr Min/Max: Temp Min: 36.5 ??C (97.7 ??F) Max: 36.9 ??C (98.4 ??F) Pulse Min: 78 Max: 99 BP Min: 90/60 Max: 145/94 Resp Min: 18 Max: 18 SpO2 Min: 93 % Max: 97 % Most Recent : Vitals: 06/07/24 0014 06/07/24 0516 06/07/24 0600 06/07/24 0903 BP: 145/94 108/70 BP Location: Left leg Left arm Patient Position: HOB 30 degrees Sitting Pulse: 80 86 99 Resp: 18 18 Temp: 36.8 ??C (98.3 ??F) 36.5 ??C (97.7 ??F) TempSrc: Oral Oral SpO2: 97% 93% Weight: 113.6 kg (250 lb 6.4 oz) Height: Physical Exam: General appearance: alert, cooperative, no distress HEENT: (-)icterus, Oropharnyx is normal, NCAT Neck: No palpable LN Lungs: breath sounds normal and symmetric; minimal respiratory effort, no r/w/c Heart: regular rhythm, normal S1 and S2, no m/r/g Abdomen: soft without mass, non-tender, +bowel sounds, no HSM Extremities/Skin: no gross deformities, FROM, no new rashes, no ulcerations Vascular: no Edema, pulses present bilaterally Neuro: No focal deficits Psych: Appropriate mood and affect , intellectual disability right upper extremity PICC line site clean Labs Reviewed. Recent Labs Lab Units 06/07/24 0400 06/06/24 0359 06/05/24 0031 WBC K/cumm 6.1 5.6 6.3 HEMOGLOBIN g/dL 11.8* 11.8* 12.9 HEMATOCRIT % 36.7 37.3 39.7 PLATELETS K/cumm 299 319 371 Recent Labs Lab Units 06/07/24 0400 06/06/24 0359 06/05/24 0031 BUN SERUM mg/dL 17 20 18 CREATININE mg/dL 0.66 0.68 0.68 Lab Results Component Value Date ALT <5 (L) 06/07/2024 AST 19 06/07/2024 ALKPHOS 219 (H) 06/07/2024 BILITOT 0.5 06/07/2024 Cultures Blood cultures 05/30 no growth so far Outside hospital 01/11 blood cultures reported to be positive for Staph aureus MSSA. From 05/21 and 05/22. [facility] echo reported as Tricuspid valve vegetation. CT chest noncontrast. 05/30 IMPRESSION: 1. Redemonstrated curvilinear radiopaque density extending from the proximal right lower lobe pulmonary artery into a subsegmental lateral basilar branch favors a catheter or wire fragment. 2. Findings most suggestive of heart failure with cardiomegaly, small volume pericardial effusion, and small bilateral pleural effusions and mild pulmonary edema. CT chest PE protocol 05/30 IMPRESSION: 1. Motion degraded evaluation of the pulmonary [...] LFTs. 5. Additional findings as described above. Assessment: MSSA bacteremia Documented at outside hospital, unknown date so far will follow-up with [facility]. 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. She underwent CHANCE, with no visible valve vegetation. Repeat blood cultures 05/30 remain no growth so far. She has AICD in place. Dislodged catheter/lead.. PA Atrial fibrillation CHF GERD Hypertension Obstructive sleep apnea Thyroid disease Intellectual disability Plan: Discussed with Dr. Neli Hutchinson, no vegetation seen on tricuspid valve. There is a dislodged lead/catheter, In Pulmonary artery, which is also reported in CT. There was a clot in [place], probably an appendage clot, hence synchronized Cardioversion was canceled. Continue on Ancef for now Follow up on blood cultures. Monitor fever curve and WBC count. Called microlab [facility] blood cultures 05/25 NG. blood cultures were positive for Staph aureus 05/21 and 05/22 Blood cultures were negative at outside hospital from 05/25, [facility] abdomen and pelvis With no significant infectious findings Continue Ancef, 4 weeks total due to presence of ICD, end date 06/22 IR guided PICC line placement. Right upper extremity. Electrophysiology/Cardiology team is following plan for Bi V ICD after completing antibiotic course. CBC, CMP to be obtained weekly while on IV Ancef and labs to be faxed to ID Clinic. Will follow. Eben Pettit MD 06/07/2024 [place] Office: [phone] Fax: [phone] Voice recognition software was used to complete this document, therefore, skiver welt end variances may occur. * Ranjana Nichols COTA - 06/07/2024 10:08 AM CDT Occupational Therapy NOTE / SESSION TYPE: DAILY PROGRESS / TREATMENT Patient's Name: Lei Rodriguez Age / Sex: 63 y.o. / female Room: [place] [id number] : 1960 Date of service: 06/07/24 TIME IN: 1005 TIME OUT: 1030 Patient Active Problem List Diagnosis Endocarditis SOB (shortness of breath) Acute on chronic systolic congestive heart failure ([facility]) ([facility]) Neck pain Hyponatremia Chronic a-fib ([facility]) ([facility]) Type 2 diabetes mellitus, with long-term current use of insulin ([facility]) Hypothyroid JOSE (obstructive sleep apnea) Diabetes mellitus with hyperglycemia ([facility]) ([facility]) Traumatic hematoma of right upper arm Hypotension Past Medical History: Diagnosis Date A-fib ([facility]) ([facility] CHF (congestive heart failure) ([facility]) ([facility]) Diabetes mellitus ([facility]) GERD (gastroesophageal reflux disease) Hypertension Intellectual disability OAB (overactive bladder) Sleep apnea Thyroid disease Past Surgical History: Procedure Laterality Date CARDIAC DEFIBRILLATOR PLACEMENT CHOLECYSTECTOMY INSERT / REPLACE / REMOVE PACEMAKER IR PICC LINE PLACEMENT > 5 YEARS N/A 06/05/2024 OTHER SURGICAL HISTORY 05/31/2024 CHANCE/CARDIOVERSION Precautions (including weight-bearing): Fall risk and Bed / chair alarm Subjective: Rudy bernardo, Thank you Therapy Pain: Pre-therapy pain level: 0 /10 Pain location: No pain - Location N/A Pain Intervention(s): No pain - Intervention N/A Post-therapy pain level: 0 /10 Pain scale reference: 0-10 SCALE Objective: Appearance: Presentation upon OT arrival: Patient Sitting in bedside chair Presentation upon OT departure: Patient Sitting in bedside chair Bed / Chair alarm in place and activated upon OT departure: Yes Call light within arms reach of patient at end of session: Yes Completed patient handoff and notified MUD GRINDER / RN, name: Shereen, of patient's location and functionalstatus upon completion of session Cognitive / Perceptual: Alert, pleasant, cooperative Mobility / Transfers: Bed Mobility: OOB throughout session Transfer(s): SBA sit to stand from bedside chair SBA ambulatory toilet transfer from bedside chair > sink with rollator Living Skills / Other Activities: TOILET TRANSFER LOCATION: STANDARD TOILET OVERALL ASSIST LEVEL: Supervision assistance / verbal cue(s) DEVICE: rollator and GRAB BARS ADDITIONAL DOCUMENTATION: sba for safety with mobility Toileting Patient completed toileting of hygiene management, clothing management pre- toileting, and clothing management post-toileting while sitting on standard toilet and standing at standard toilet with overall Supervision assistance. Patient required assistance for safety. Grooming: Patient completed grooming of brushing teeth and washing hands while Standing at the sink ~ 4 minutes with overall Supervision assistance. Patient required assistance for safety UE dressing: Patient completed upper body dressing of Hospital gown as robe while Standing at bedside with overall Minimal assistance. Patient required assistance for pulling around back. Lower Body Dressing: Patient completed lower body dressing of Incontinence briefs as underwear while sitting/standing atstandard toilet with overall Supervision assistance. Patient required assistance for increased timeto complete. Caregiver Present: No Education & Training Provided: Role of OT, OT plan of care, ADL training, Functional transfer training, Balance training, and Safety education Assessment: Activity tolerance / response to OT session: GOOD PARTICIPATION, GOOD MOTIVATION, and RECEPTIVE TO EDUCATION / TRAINING Progress towards goals: Please refer to care plan from this date for progress towards individual goals Plan: Therapy Plan: Rehab Potential (Prognosis): good OT Recommendations This Date: OT RECOMMENDATIONS: OT Recommendation: Home with 24 hour supervision, Home Health OT Flow sheet updated and OT Consultation in Regards to Change in Discharge Recommendations: YES /NO: No Additional recommendation comments: Frequency of therapy:OT Frequency during current admission: 3-5x/wk If this is the last note, consider this the discharge summary KATARINA Barrow 06/07/24 Cosigned by Ashlee Salinas OT at 06/12/2024 7:57 AM CDT * Ty Mcfarland MD - 06/07/2024 6:17 AM CDT Cardiology follow-up note-[facility] Patient was seen examined in room 825. She got her hair braided on Tuesday afternoon by her nurse.She is sitting in the recliner and is in good spirits. Says that she had pretty good night sleep. Denies shortness of breath or chest pain this morning. Past Medical History: Diagnosis Date A-fib (CMS/HCC) [...] Admission Medication Sig Dispense Refill Last Dose BASAGLAR 100 unit/mL (3 mL) pen for injection Inject 18 Units under the skin daily carvediloL (COREG) 25 mg tablet Take 1 tablet (25 mg total) by mouth 2 (two) times a day with meals dilTIAZem (CARDIZEM) 30 mg tablet Take 1 tablet (30 mg total) by mouth 2 (two) times a day docusate sodium (COLACE) 100 mg capsule Take 1 capsule (100 mg total) by mouth 2 (two) times a day Entresto 24-26 mg tablet Take 1 tablet by mouth 2 (two) times a day escitalopram (LEXAPRO) 10 mg tablet Take 1 tablet (10 mg total) by mouth daily Farxiga 10 mg tablet Take 1 tablet (10 mg total) by mouth daily furosemide (LASIX) 40 mg tablet Take 1 tablet (40 mg total) by mouth daily nortriptyline (PAMELOR) 10 mg capsule Take 1 capsule (10 mg total) by mouth daily NovoLOG 100 unit/mL (3 mL) pen for injection Inject 10 Units under the skin 3 (three) times a day with meals Plus slide potassium chloride ER 20 mEq CR tablet Take 1 tablet (20 mEq total) by mouth daily albuterol HFA (PROVENTIL HFA,VENTOLIN HFA,PROAIR HFA) 90 mcg/actuation inhaler Inhale 2 puffs every6 (six) hours as needed for wheezing cholecalciferol (VITAMIN D-3) 5,000 unit tablet Take 1 tablet (5,000 Units total) by mouth daily ferrous sulfate 325 [...] mcg total) by mouth every morning multivit jiecrfne-jvre-YJ-calcium (THERA-M) 9 mg iron-400 mcg tablet Take 1 tablet by mouth daily omeprazole (PriLOSEC) 20 mg capsule Take 1 capsule (20 mg total) by mouth daily Xarelto 20 mg tablet Take 1 tablet (20 mg total) by mouth daily with dinner Current Facility-Administered Medications: carvediloL (COREG) tablet 6.25 mg, 6.25 mg, oral, BID with meals (bkfst, dinner), Raji Hollis MD, 6.25 mg at 06/06/24912 ceFAZolin (ANCEF) 2,000 mg/100 mL in dextrose (premix) 2,000 mg, 2,000 mg, intravenous, Q8H GALINA, Mike Hollis MD, Last Rate: 200 mL/hr at 06/07/24612, 2,000 mg at 06/07/24612 dextrose oral liquid liquid 15 g, 15 g, oral, Q15 Min PRN OR dextrose (D10W) 10% bolus 250 mL, 250 mL, intravenous, Q15 Min PRN, Mike Hollis MD dilTIAZem (CARDIZEM) tablet 30 mg, 30 mg, oral, TID, Mike Hollis MD, 30 mg at docusate sodium (COLACE) capsule 100 mg, 100 mg, oral, BID PRN, Coleen Samuels MD dofetilide (TIKOSYN) capsule 500 mcg, 500 mcg, oral, BID, Ty Mcfarland MD, 500 mcg at 06/06/242121 escitalopram (LEXAPRO) tablet 10 mg, 10 mg, oral, Daily, Mike Hollis MD, 10 mg at 06/06/24912 ferrous sulfate delayed release tablet 65 mg of elemental iron, 65 mg of elemental iron, oral, Daily with breakfast, Mike Hollis MD, 65 mg of elemental iron at 06/06/24912 furosemide (LASIX) 10 mg/mL injection 40 mg, 40 mg, intravenous, BID DIURETIC, Mike Hollis MD, 40 mg at 08/28/24 0914 glucagon injection 1 mg, 1 mg, intramuscular, Q30 Min PRN, Mike Hollis MD HYDROcodone-acetaminophen (NORCO) 5-325 mg per tablet 1 tablet, 1 tablet, oral, QID PRN, Mike Hollis MD, 1 tablet at 06/06/24 1914 insulin glargine (LANTUS, SEMGLEE) 100 unit/mL injection 18 Units, 18 Units, subcutaneous, QAM, Elly Julian MD, 18 Units at 06/06/24 0914 insulin lispro (HumaLOG, ADMELOG) 100 unit/mL injection 0-4 Units, 0-4 Units, subcutaneous, Nightly, Mike Hollis MD, 1 Units at 06/05/242124 insulin lispro (HumaLOG, ADMELOG) 100 unit/mL injection 0-5 Units, 0-5 Units, subcutaneous, TID with meals, Mike Hollis MD, 3 Units at 06/06/24 1239 insulin lispro (HumaLOG, ADMELOG) 100 unit/mL injection 10 Units, 10 Units, subcutaneous, TID with meals, Elly Julian MD, 10 Units at 06/06/24 1656 levothyroxine (SYNTHROID) tablet 75 mcg, 75 mcg, oral, Daily - 0600, Mike Hollis MD, 75 mcg at 06/07/24 0614 midodrine (PROAMATINE) tablet 5 mg, 5 mg, oral, TID AC, Edilberto Corral, , 5 mg at 06/07/24 0614 nortriptyline (PAMELOR) capsule 10 mg, 10 mg, oral, Nightly, Mike Hollis MD, 10 mg at 06/06/242121 ondansetron (ZOFRAN) injection 4 mg, 4 mg, intravenous, Q6H PRN, Mike Hollis MD pantoprazole DR (PROTONIX) extended release tablet 40 mg, 40 mg, oral, Daily, Mike Hollis MD, 40 mg at 06/06/24 09 polyethylene glycol (MIRALAX) packet 17 g, 17 g, oral, Daily PRN, Mike Hollis MD, 17 gat 06/04/24 1043 rivaroxaban (XARELTO) tablet 20 mg, 20 mg, oral, Daily with dinner, 20 mg at 06/06/24 1656 FOLLOWED BY [DISCONTINUED] rivaroxaban (XARELTO) tablet 20 mg, 20 mg, oral, Daily with dinner, Mike Hollis MD sacubitriL-valsartan (ENTRESTO) 24-26 mg tablet 1 tablet, 1 tablet, oral, BID, Mike Hollis MD, 1 tablet at 06/06/24 212 sodium chloride 0.9% flush 5-10 mL, 5-10 mL, intra-catheter, Q12H GALINA, Eben Pettit MD, 10 mL at 06/06/242122 sodium chloride 0.9% flush 5-20 mL, 5-20 mL, intra-catheter, PRN, Eben Pettit MD Allergies Allergen Reactions Sulfa (Sulfonamide Antibiotics) Social History Tobacco Use Smoking status: Never Smokeless tobacco: Never Substance and Sexual Activity Drug use: None Sexual activity: None Alcohol Use: Not At Risk (06/01/2024) AUDIT-C Frequency of Alcohol Consumption: Never Average Number of Drinks: Patient does not drink Frequency of Binge Drinking: Never No family history on file. Review of Systems: Fatigue improved Says that she had pretty good night sleep. Denies shortness of breath or chest pain this morning. Other 12 review of systems unremarkable Objective Vitals: 24hr Min/Max: Temp Min: 36.7 ??C (98.1 ??F) Max: 36.9 ??C (98.4 ??F) Pulse Min: 78 Max: 89 BP Min: 90/60 Max: 145/94 Resp Min: 18 Max: 18 SpO2 Min: 93 % Max: 97 % Most Recent: Vitals: 06/07/24 0516 BP: Pulse: 86 Resp: Temp: SpO2: I/O last 2 completed shifts: In: 120 [P.O.:120] Out: - No intake/output data recorded. Physical Exam: General: in no apparent distress Neuro: Alert and oriented x 3, moves all extremities well HEENT: normocephalic, atraumatic, thyroid not enlarged. I do not appreciate JVD. Neck: There are nocarotid bruits. Lungs: symmetric, unlabored, clear to auscultation bilaterally Heart: irregular rate & rhythm, no murmurs, rubs, or gallops Abdomen: soft, non-tender, non-distended, bowel sounds present, systolic murmur present Extremities: no LE edema, palpable peripheral pulses BL Neurologic: No focal deficits Lab/Radiology/Diagnostic Review: Laboratory review: Lab results in the last 24 hours: Recent Results (from the past 24 hour(s)) POCT glucose Collection Time: 06/06/24 7:25 AM Result Value Ref Range Glucose, POC 216 (H) 70 - 199 mg/dL POCT glucose Collection Time: 06/06/24 11:53 AM Result Value Ref Range Glucose, POC 271 (H) 70 - 199 mg/dL POCT glucose Collection Time: 06/06/24 4:42 PM Result Value Ref Range Glucose, POC 127 70 - 199 mg/dL POCT glucose Collection Time: 06/06/24 6:51 PM Result Value Ref Range Glucose, POC 147 70 - 199 mg/dL POCT glucose Collection Time: 06/06/24 9:16 PM Result Value Ref Range Glucose, POC 123 70 - 199 mg/dL CBC with auto differential Collection Time: 06/07/24 4:00 AM Result Value Ref Range WBC 6.1 3.8 - 9.9 K/cumm Hgb 11.8 (L) 11.9 - 15.5 g/dL Hct 36.7 35.6 - 45.5 % Plt 299 150 - 400 K/cumm MPV 9.2 9.1 - 12.3 fL RBC 3.66 (L) 3.90 - 5.20 M/cumm MCV 100.3 (H) 81.3 - 96.4 fL MCH 32.2 27.1 - 33.3 pg MCHC 32.2 (L) 32.3 - 35.7 g/dL RDW CV 13.0 11.1 - 14.9 % RDW SD 48.0 35.7 - 48.1 fL NRBC abs 0.00 0.00 - 0.01 K/cumm Comprehensive metabolic panel Collection Time: 06/07/24 4:00 AM Result Value Ref Range Sodium 131 (L) 135 - 145 mmol/L Potassium, pl 4.2 3.3 - 4.9 mmol/L Chloride 97 97 - 110 mmol/L CO2 25 22 - 32 mmol/L Anion gap 9 2 - 15 mmol/L BUN 17 6 - 25 mg/dL Creatinine 0.66 0.60 - 1.10 mg/dL Glucose 133 70 - 199 mg/dL Calcium 8.9 8.5 - 10.3 mg/dL Bilirubin, total 0.5 0.1 - 1.2 mg/dL Protein, pl 7.2 6.5 - 8.5 g/dL Albumin 2.8 (L) 3.5 - 5.0 g/dL Alk phos 219 (H) 40 - 130 Units/L ALT <5 (L) 7 - 45 Units/L AST 19 10 - 45 Units/L Magnesium Collection Time: 06/07/24 4:00 AM Result Value Ref Range Magnesium 1.9 1.4 - 2.5 mg/dL Phosphorus Collection Time: 06/07/24 4:00 AM Result Value Ref Range Phosphorus, pl 2.9 2.3 - 4.5 mg/dL Differential, auto Collection Time: 06/07/24 4:00 AM Result Value Ref Range Neutrophil abs 4.1 1.5 - 6.5 K/cumm Imm gran abs 0.1 0.0 - 0.1 K/cumm Lymphocyte abs 1.1 0.8 - 3.3 K/cumm Monocyte abs 0.7 0.2 - 0.8 K/cumm Eosinophil abs 0.2 0.0 - 0.5 K/cumm Basophil abs 0.1 0.0 - 0.1 K/cumm Neutrophil pct 67.3 % Imm gran pct 0.8 % Lymphocyte pct 17.3 % Monocyte pct 10.6 % Eosinophil pct 2.5 % Basophil pct 1.5 % eGFR Collection Time: 06/07/24 4:00 AM Result Value Ref Range eGFR >90 >=60 mL/min/1.73 m2 Lipids: No results found for: CHOL , CHLPL , HDL , LDLCALC , TRIG , CHOLHDL and Cardiac Enzymes: No results found for: CKTOTAL , CKMB , CKMBINDEX , TROPONINT ECG: Results for orders placed during the hospital encounter of 05/29/24 ECG 12 lead Narrative Vent Rate: 78 bpm RR Interval: 763 msec HI Interval: 0 msec QRS Duration: 154 msec QT Interval: 473 msec QTC Interval: 506 msec P-R-T [place]: 0 - 23 - 94 degrees IMPRESSION: ATRIAL FIBRILLATION Occasional ventricular pacing INDETERMINATE AXIS Left bundle branch block ABNORMAL ECG Electronically Signed By: Dr. Shiloh Muhammad [facility] ASSESSMENT/PLAN: Patient continues to improve daily 1. Questionable endocarditis -no vegetations seen on CHANCE -continue therapy per Infectious Disease until 06-09-24 Atrial fibrillation -CHANCE discovered left atrial appendage clot therefore no cardioversion was attempted -Tikosyn loading has been started, QTC is actually shorter than prior to starting the Tikosyn -she remains in AFib on telemetry and on exam with fairly well-controlled rate Dislodged catheter -in pulmonary artery -seen on both CT scan and CHANCE Acute on chronic congestive heart failure -clinically compensated at this time -EF 30% by echo Neck pain -source unclear Diabetes type 2 -per hospitalist Hypothyroid -treated In future would benefit from upgrade of dual-chamber ICD to Bi V ICD but that should not be done atleast for 30 days after antibiotics are finished * Ranjana Nichols COTA - 06/06/2024 1:50 PM CDT Occupational Therapy NOTE / SESSION TYPE: DAILY PROGRESS / TREATMENT Patient's Name: Lei Rodriguez Age / Sex: 63 y.o. / female Room: [place] [id number] : 1960 Date of service: 06/06/24 TIME IN: 1325 TIME OUT: 1350 Patient Active Problem List Diagnosis Endocarditis SOB (shortness of breath) Acute on chronic systolic congestive heart failure (CMS/HCC) ([facility]) Neck pain Hyponatremia Chronic a-fib (CMS/HCC) ([facility]) Type 2 diabetes mellitus, with long-term current use of insulin (HCC) Hypothyroid JOSE (obstructive sleep apnea) Diabetes mellitus with hyperglycemia (CMS/HCC) ([facility]) Past Medical History: Diagnosis Date A-fib (CMS/HCC) (HCC) CHF (congestive heart failure) (CMS/HCC) ([facility]) Diabetes mellitus (HCC) GERD (gastroesophageal reflux disease) Hypertension Intellectual disability OAB (overactive bladder) Sleep apnea Thyroid disease Past Surgical History: Procedure Laterality Date CARDIAC DEFIBRILLATOR PLACEMENT CHOLECYSTECTOMY INSERT / REPLACE / REMOVE PACEMAKER IR PICC LINE PLACEMENT > 5 YEARS N/A 06/05/2024 OTHER SURGICAL HISTORY 05/31/2024 CHANCE/CARDIOVERSION Precautions (including weight-bearing): Fall risk and Bed / chair alarm Subjective: Sure Therapy Pain: Pre-therapy pain level: 0 /10 Pain location: No pain - Location N/A Pain Intervention(s): No pain - Intervention N/A Post-therapy pain level: 0 /10 Pain scale reference: 0-10 SCALE Objective: Appearance: Presentation upon OT arrival: Patient Supine with head of bed elevated Presentation upon OT departure: Patient Sitting at edge of bed ( declined getting back in bed and/or sitting on bedside recliner ) Bed / Chair alarm in place and activated upon OT departure: Yes Call light within arms reach of patient at end of session: Yes Completed patient handoff and notified MUD GRINDER / RN, name: Eulalia, of patient's location and functional status upon completion of session Cognitive / Perceptual: Alert, pleasant, cooperative Mobility / Transfers: Bed Mobility: SBA supine > sit with increased time Transfer(s): SBA sit to stand SBA functional mobility of household distance in hallway with rollaotr SPV sit to stand from standard toilet with grab bar Living Skills / Other Activities: UE dressing: Patient completed upper body dressing of Hospital gown as robe while Sitting on EOB with overall Minimal assistance. Patient required assistance for threading RUE, pulling around back, and set-up of items. Lower Body Dressing: Patient completed lower body dressing of Incontinence briefs as underwear while sitting on standardtoilet and standing with overall Supervision assistance. Patient required assistance for safety. Footwear: Patient completed footwear of Footie(s) while sitting on EOB and using bed for support with overallSet-up / clean-up assistance. Patient required assistance for verbal cue(s) and increased time to complete TOILET TRANSFER LOCATION: STANDARD TOILET OVERALL ASSIST LEVEL: Supervision assistance / verbal cue(s) DEVICE: GRAB BARS ADDITIONAL DOCUMENTATION: spv for safety Toileting Patient completed toileting of hygiene management, clothing management pre- toileting, and clothing management post-toileting while sitting on standard toilet with overall Supervision assistance. Patient required assistance for safety. Caregiver Present: No Education & Training Provided: Role of OT, OT plan of care, ADL training, Bed mobility training, Functional transfer training, Balance training, and Safety education Assessment: Activity tolerance / response to OT session: GOOD PARTICIPATION, GOOD MOTIVATION, and RECEPTIVE TO EDUCATION / TRAINING Progress towards goals: Please refer to care plan from this date for progress towards individual goals Plan: Therapy Plan: Rehab Potential (Prognosis): good OT Recommendations This Date: OT RECOMMENDATIONS: OT Recommendation: Home with 24 hour supervision, Home Health OT Flow sheet updated and OT Consultation in Regards to Change in Discharge Recommendations: YES /NO: No Additional recommendation comments: Frequency of therapy:OT Frequency during current admission: 3-5x/wk If this is the last note, consider this the discharge summary KATARINA Barrow 06/06/24 Cosigned by Ton Stanton OT at 06/06/2024 3:40 PM CDT * Coleen Samuels MD - 06/06/2024 12:42 PM CDT Daily Progress CHIEF COMPLAINT/ BRIEF HOSPITAL COURSE Lei Rodriguez is a 63 year old female with PMHx of Afib, CHF, T2DM, GERD, HTN, intellectual disability, JOSE, AICD, hypothyroidism who presented to on 05/29 with abdominal pain. Limited historian due to intellectual disability. She initially presented to [facility] on 05/[facility] with n/v/dand abdominal pain. She was found to have endocarditis with positive blood cultures growing staph au reus. She was started on vanc, zosyn, and IVF initially, now she is on ancef. She was also complaining of right neck pain, but was found to have no acute pathology on CT head and CT C-spine. On 05/30,dislodged catheter vs wire seen in right pulm artery on CT chest. CHANCE performed showing no TV vegetation, but presence of catheter vs wire in right pulm artery and left atrial appendage clot. Risks/benefits discussed with IR and CTS with no plan for surgical intervention. She is being followed by ID for antibiotic management. No blood cultures to date. Initially, end date for ancef was 06/08, but switched to 06/22 to complete 4 weeks due to AICD in place. PICC line was placed on 06/05 but had RUE swelling. CXR on 06/06 showing successful placement. INTERVAL HISTORY Patient is dooing very well today. Is about ready for DC. Very concerned about her walker making itto rehab. Reviewed Cxr which shows no failure Review of Systems Gen: No fever, No chills, CV: No chest pain Resp: No SOB GI: No nausea, No vomiting, abdominal pain controlled Objective: Vitals: 24hr Min/Max: Temp Min: 36.5 ??C (97.7 ??F) Max: 36.9 ??C (98.5 ??F) Pulse Min: 76 Max: 96 BP Min: 90/60 Max: 126/73 Resp Min: 18 Max: 36 SpO2 Min: 90 % Max: 98 % Most Recent : Vitals: 06/06/24 0600 06/06/24 0800 06/06/24 0910 06/06/24 1204 BP: 105/57 90/60 BP Location: Left arm Left arm Patient Position: Sitting Sitting Pulse: 85 85 83 Resp: 18 18 Temp: 36.9 ??C (98.4 ??F) 36.7 ??C (98.1 ??F) TempSrc: Axillary Oral SpO2: 94% 93% Weight: 116.7 kg (257 lb 4.4 oz) Height: Physical Exam: Gen:Well built female Lungs:Symmetrical breath sounds b/l Heart:S1,S2 heard Abdomen:Soft, NT, BS+ Extremities:No edema b/l LE Neuro:Awake, alert, answers questions Lab/Radiology/Diagnostic Review: Recent Results (from the past 24 hour(s)) POCT glucose Collection Time: 06/05/24 4:47 PM Result Value Ref Range Glucose, POC 198 70 - 199 mg/dL POCT glucose Collection Time: 06/05/24 8:31 PM Result Value Ref Range Glucose, POC 205 (H) 70 - 199 mg/dL CBC with auto differential Collection Time: 06/06/24 3:59 AM Result Value Ref Range WBC 5.6 3.8 - 9.9 K/cumm Hgb 11.8 (L) 11.9 - 15.5 g/dL Hct 37.3 35.6 - 45.5 % Plt 319 150 - 400 K/cumm MPV 9.2 9.1 - 12.3 fL RBC 3.67 (L) 3.90 - 5.20 M/cumm MCV 101.6 (H) 81.3 - 96.4 fL MCH 32.2 27.1 - 33.3 pg MCHC 31.6 (L) 32.3 - 35.7 g/dL RDW CV 13.1 11.1 - 14.9 % RDW SD 49.2 (H) 35.7 - 48.1 fL NRBC abs 0.00 0.00 - 0.01 K/cumm Comprehensive metabolic panel Collection Time: 06/06/24 3:59 AM Result Value Ref Range Sodium 133 (L) 135 - 145 mmol/L Potassium, pl 4.0 3.3 - 4.9 mmol/L Chloride 98 97 - 110 mmol/L CO2 26 22 - 32 mmol/L Anion gap 9 2 - 15 mmol/L BUN 20 6 - 25 mg/dL Creatinine 0.68 0.60 - 1.10 mg/dL Glucose 241 (H) 70 - 199 mg/dL Calcium 8.8 8.5 - 10.3 mg/dL Bilirubin, total 0.4 0.1 - 1.2 mg/dL Protein, pl 7.3 6.5 - 8.5 g/dL Albumin 2.9 (L) 3.5 - 5.0 g/dL Alk phos 238 (H) 40 - 130 Units/L ALT <5 (L) 7 - 45 Units/L AST 16 10 - 45 Units/L Magnesium Collection Time: 06/06/24 3:59 AM Result Value Ref Range Magnesium 1.8 1.4 - 2.5 mg/dL Phosphorus Collection Time: 06/06/24 3:59 AM Result Value Ref Range Phosphorus, pl 3.2 2.3 - 4.5 mg/dL Differential, auto Collection Time: 06/06/24 3:59 AM Result Value Ref Range Neutrophil abs 3.7 1.5 - 6.5 K/cumm Imm gran abs 0.0 0.0 - 0.1 K/cumm Lymphocyte abs 1.1 0.8 - 3.3 K/cumm Monocyte abs 0.7 0.2 - 0.8 K/cumm Eosinophil abs 0.1 0.0 - 0.5 K/cumm Basophil abs 0.1 0.0 - 0.1 K/cumm Neutrophil pct 64.8 % Imm gran pct 0.5 % Lymphocyte pct 19.0 % Monocyte pct 11.9 % Eosinophil pct 2.0 % Basophil pct 1.8 % eGFR Collection Time: 06/06/24 3:59 AM Result Value Ref Range eGFR >90 >=60 mL/min/1.73 m2 POCT glucose Collection Time: 06/06/24 7:25 AM Result Value Ref Range Glucose, POC 216 (H) 70 - 199 mg/dL POCT glucose Collection Time: 06/06/24 11:53 AM Result Value Ref Range Glucose, POC 271 (H) 70 - 199 mg/dL ECG 12 lead Result Date: 05/30/2024 Narrative: Vent Rate: 109 bpm RR Interval: 548 msec HI Interval: 0 msec QRS Duration: 149 msec QT Interval: 398 msec QTC Interval: 462 msec P-R-T [place]: 0 - 96 - 89 degrees IMPRESSION: ATRIAL FIBRILLATION WITH RAPID VENTRICULAR RESPONSE BORDERLINE RIGHT AXIS DEVIATION [QRS AXIS > 90] INTRAVENTRICULAR CONDUCTION DELAY [130+ ms QRS DURATION] ABNORMAL ECG Unchanged compared to an EKG done earlier on May 30, 2024 Electronically Signed By: Dr. Shiloh Muhammad [facility] CT Chest WO Contrast Result Date: 05/30/2024 [...] Complete W Doppler/CF Result Date: 05/30/2024 Narrative: [place] [address] Echocardiogram Report Patient Name: LEI RODRIGUEZ V : 1960 Study Date: 05/30/2024 7:47:08 AM Gender: F Tech: Location: [id number] Ref Provider: TY MCFARLAND Height(Cm): 165 BSA: [...] Right Ventricle: Normal right ventricular systolic function. Pa cemaker noted. Right Atrium: There is mild enlargement of right atrium. Linear artifact in right atrium suggestive of catheter(s), pacemaker lead(s), or ICD lead(s). Aortic Valve: Aortic cusps appearmildly sclerotic. No evidence of hemodynamically significant aortic [...] without respiratory collapse consistent with elevated right atrialpressure (>15 mmHg). Pulmonary Artery: Mild enlargement of the pulmonary artery. CONCLUSIONS: Technically difficult study with limited views. Mild enlargement of left ventricle cavity. Left ventricle not well visualized. Optison contrast agent used to visually enhance endocardial wall motion andcontractility. Normal left ventricular wall thickness. Paradoxical septal [...] Trivial pericardial effusion. Electronically Signed By: Coleen Kwok DO, [facility], MELISSA CANDELARIO 2024-05-30 09:18:05 CDT CC: CC: [...] Rate: 86 bpm RR Interval: 697 msec HI Interval: 0 msec QRS Duration: 145 msec QT Interval: 438 msec QTC Interval: 481 msec P-R-T [place]: 0 - 101 - 95 degrees IMPRESSION: ATRIAL FIBRILLATION RIGHT AXIS DEVIATION [QRS AXIS > 100] INTRAVENTRICULAR CONDUCTION DELAY [130+ ms QRS DURATION] ABNORMAL ECG Unchanged compared to 05/29/2021 Electronically Signed By: Dr. Shiloh Muhammad [facility] [facility] CT Chest PE (CTA) W Contrast Result Date: 05/30/2024 Narrative: EXAMINATION: CT CHEST PE (CTA) W CONTRAST HISTORY: Chest pain ORDER DATE: 05/30/2024 3:20AM TECHNIQUE: CT chest images were acquired using a chest angiographic protocol with 3-D imaging optimized for PE is obtained [id number] mL of Optiray 350 IV. 2D Coronal [...] findings as described above. Stat report by [facility] . Electronically signed by: Andrea Abernathy M.D. [...] and partially calcified bulging disc contributing to [id number] central spinal stenosis. Disc osteophyte complex also contributing to pxkm-gn-clyewhyg central spinal stenosis at C4-C5 level. No significant disc bulge or herniation. No severe spinal canal stenosis. Uncovertebral joint hypertrophy contributing to multilevel bilateral neural foraminal stenosis. Lungs: Lung apices are normal. Soft tissues: Unremarkable. Impression: No acute cervical spine injury. Stat report by [facility] Stat report by [facility] Electronically signed by: Andrea Abernathy M.D. CT [...] No acute intracranial findings. Stat report by [facility] Electronically signed by: Andrea Abernathy M.D. ECG 12 lead Result Date: 05/30/2024 Narrative: Vent Rate: 93 bpm RR Interval: 645 msec HI Interval: 0 msec QRS Duration: 97 msec QT Interval: 197 msec QTC Interval: 247 msec P-R-T [place]: 0 - 118 - 0 degrees IMPRESSION: [...] Electronically Signed By: Antonio Carlos MD Assessment/Plan Endocarditis: Continue ancef till 06/22 as per ID. Blood cultures ngtd. ID and Cardiology Consulted.OSH blood cx-records requested. Telemetry. D/w Dr. Mcfarland/ CTS/IR-no further evaluation for removal of possible wire fragment /catheter in pulm artery on CT chest as risks outweigh benefits. Now that antibiotic duration has been extended beyond 8-30 requested PICC line-done in IR 06-05 as bedsideunsuccesful b/l attempted-hematoma RUE-requested ultrasound, will need SNF as family uncomfortable with antibiotic administration at home, d/w sister Dilia and onsite case manager. CXR 3-24-sstqynprhbam-requested repeat CXR which was reviewed, looks good. Acute on chronic Systolic CHF Troponins flat. Echo shows EF 30%. On IV lasix. Evidence of volume overload on CT chest. On Entresto, coreg. Neck pain Seem to be MSK. CT head/C spine no acute pathology. Flexeril x1 06-02. Chronic afib Continue coreg, dilt, and Xarelto, Tikosyn as per Cards DM Some elevated blood sugars on Lantus and SSI. Added scheduled Humalog .Increased lantus dose and scheduled Humalog dose on 05-31 as blood sugars elevated. One elevated blood sugar on 06-05. Hypothyroidism On Synthroid JOSE Apparently was not using her NPPV at OSH, Defer BMI 47.22 DVT ppx: Xarelto MDM:Mod Disposition:SNF as antibiotic duration extended as per ID recs to 06/22 due to presence of AICD Expected Date of Discharge: Await SNF- 05/06 Barriers to Discharge:Await SNF approval by insurance These fluid and electrolyte abnormalities are being treated, evaluated or monitored: Hyperkalemia-resolved Hyponatremia-monitor Coleen Samuels M.D. * Dinorah Birmingham, EARLY CHILDHOOD ASSOCIATE TEACHER - 06/06/2024 12:02 PM CDT Physical Therapy PT PROGRESS NOTE PATIENT'S NAME:Lei Rodriguez :1960 AGE:63 y.o. ROOM:[place] [id number] Past Medical History: Diagnosis Date A-fib (CMS/HCC) [...] (HCC) Neck pain Hyponatremia Chronic a-fib (CMS/HCC) (HCC) Type 2 diabetes mellitus, with long-term current use of insulin ([facility]) Hypothyroid JOSE (obstructive sleep apnea) Diabetes mellitus with hyperglycemia ([facility]) ([facility]) TIME IN: 1203 TIME OUT: 1213 SUBJECTIVE Patient reports she is ok MENTAL STATUS/ORIENTATION: Alert and oriented x 3 name, current year and place, not current month PAIN: Pre-therapy pain level: no c/o pain Pain location: n/a Pain intervention: n/a Post-therapy pain level/response to intervention: no c/o pain OBJECTIVE PRECAUTIONS: fall APPEARANCE/POSTURE: sitting EOB call light next to patient tele monitor in place MOBILITY DOCUMENTATION: Bed Mobility/Transfers: sit to/from stand SBA/modified independent, sit to supine modified independent Gait: amb 100' personal w/w SBA slow amy, decreased step length APPEARANCE/POSTURE (end of session): supine in bed call light next to patient EDUCATION:bed mobility , functional transfer training, gait training , and safety RESPONSE TO EDUCATION: demonstrated understanding, needs reinforcement, and verbalizes understanding ASSESSMENT Activity tolerance/response to P.T.: patient chari tx session w/o complaints able to amb 100' w/w SBA, session limited due to EKG procedure Barriers to learning: Physical Barriers to discharge: Limited safety awareness, Limited insight into deficits, Decreased endurance, Lower extremity weakness, and Medical complications Patient continues progressing toward previously set goals which remain appropriate at this time. PLAN PT Discharge Recommendations this date: PT Recommendation/Plan: Home with family, Home with 24 hour supervision, Home Health PT PT Frequency during current admission: Daily, 3-5x/wk CARE PLAN Multi-Disciplinary Problems (from Physical Therapy) Active Problems Problem: PT Misc Start Date: 06/02/24 Goal Start Date Expected End Date End Date PT [facility] - [facility] 1 06/02/24 06/09/24 -- Goal Details: Perform bed mobility with modified indep assist. Progressing Goal Start Date Expected End Date End Date PT [facility] - [facility] 2 06/02/24 06/09/24 -- Goal Details: Perform functional transfers with modified indep assist. Progressing Goal Start Date Expected End Date End Date PT [facility] 3 06/02/24 06/09/24 -- Goal Details: Gait 150' with WW with modified indep assist. Progressing Goal Start Date Expected End Date End Date PT [facility] 4 06/02/24 06/09/24 -- Goal Details: Perform 1 step with modified indep assist. Not assessed this session due to EKG procedure needing to be performed in room Goal Start Date Expected End Date End Date PT [facility] 5 06/02/24 06/09/24 -- Goal Details: Perform LE HEP with SBA Not assessed this session If this is the last note, please consider this the discharge summary. Cosigned by Lilly Lewis, PT at 06/06/2024 1:39 PM CDT * Eben Pettit MD - 06/06/2024 11:46 AM CDT Infectious Disease Consult Consulting Physician: Eben Pettit MD. Reason for consult: MSSA bacteremia/Suspected endocarditis tricuspid valve. Review of systems/interval history. Afebrile Normal WBC count No new complaints. blood cultures no growth from 05/30 Objective: Vitals: 24hr Min/Max: Temp Min: 36.5 ??C (97.7 ??F) Max: 36.9 ??C (98.5 ??F) Pulse Min: 76 Max: 96 BP Min: 92/56 Max: 126/73 Resp Min: 18 Max: 36 SpO2 Min: 90 % Max: 98 % Most Recent : Vitals: 06/06/24 0400 06/06/24 0600 06/06/24 0800 06/06/24 0910 BP: 101/62 105/57 BP Location: Left arm Left arm Patient Position: Sitting Pulse: 85 85 85 Resp: 18 18 Temp: 36.9 ??C (98.5 ??F) 36.9 ??C (98.4 ??F) TempSrc: Oral Axillary SpO2: 93% 94% Weight: 116.7 kg (257 lb 4.4 oz) Height: Physical Exam: General appearance: alert, cooperative, no distress HEENT: (-)icterus, Oropharnyx is normal, NCAT Neck: No palpable LN Lungs: breath sounds normal and symmetric; minimal respiratory effort, no r/w/c Heart: regular rhythm, normal S1 and S2, no m/r/g Abdomen: soft without mass, non-tender, +bowel sounds, no HSM Extremities/Skin: no gross deformities, FROM, no new rashes, no ulcerations Vascular: no Edema, pulses present bilaterally Neuro: No focal deficits Psych: Appropriate mood and affect , intellectual disability right upper extremity PICC line site clean Labs Reviewed. Recent Labs Lab Units 06/06/24 0359 06/05/24 0031 06/04/24 0453 WBC K/cumm 5.6 6.3 6.2 HEMOGLOBIN g/dL 11.8* 12.9 12.2 HEMATOCRIT % 37.3 39.7 38.0 PLATELETS K/cumm 319 371 332 Recent Labs Lab Units 06/06/24 0359 06/05/24 0031 06/04/243 BUN SERUM mg/dL 20 18 18 CREATININE mg/dL 0.68 0.68 0.72 Lab Results Component Value Date ALT <5 (L) 06/06/2024 AST 16 06/06/2024 ALKPHOS 238 (H) 06/06/2024 BILITOT 0.4 06/06/2024 Cultures Blood cultures 05/30 no growth so far Outside hospital 01/11 blood cultures reported to be positive for Staph aureus MSSA. From 05/21 and 05/22. [facility] echo reported as Tricuspid valve vegetation. CT chest noncontrast. 05/30 IMPRESSION: 1. Redemonstrated curvilinear radiopaque density extending from the proximal right lower lobe pulmonary artery into a subsegmental lateral basilar branch favors a catheter or wire fragment. 2. Findings most suggestive of heart failure with cardiomegaly, small volume pericardial effusion, and small bilateral pleural effusions and mild pulmonary edema. CT chest PE protocol 05/30 IMPRESSION: 1. Motion degraded evaluation of the pulmonary [...] LFTs. 5. Additional findings as described above. Assessment: MSSA bacteremia Documented at outside hospital, unknown date so far will follow-up with [facility]. 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. She underwent CHANCE, with no visible valve vegetation. Repeat blood cultures 05/30 remain no growth so far. She has AICD in place. Dislodged catheter/lead.. PA Atrial fibrillation CHF GERD Hypertension Obstructive sleep apnea Thyroid disease Intellectual disability Plan: Discussed with Dr. Neli Hutchinson, no vegetation seen on tricuspid valve. There is a dislodged lead/catheter, In Pulmonary artery, which is also reported in CT. There was a clot in MAULIK, probably an appendage clot, hence synchronized Cardioversion was canceled. Continue on Ancef for now Follow up on blood cultures. Monitor fever curve and WBC count. Called microlab [facility] blood cultures 05/25 NG. blood cultures were positive for Staph aureus 05/21 and 05/22 Blood cultures were negative at outside hospital from 05/25, blood cultures remain negative at thisfacility from 05/30 CT abdomen and pelvis With no significant infectious findings Continue Ancef, 4 weeks total due to presence of ICD, end date 06/22 IR guided PICC line placement. Right upper extremity. Electrophysiology/Cardiology team is following plan for Bi V ICD after completing antibiotic course. Will follow. Eben Pettit MD 06/06/2024 [place] [facility] Office: [phone] Fax: [phone] Voice recognition software was used to complete this document, therefore, skiver welt end variances may occur. * Sandro Hong MD - 06/06/2024 10:22 AM CDT [facility] - Cardiology [facility] Progress Note Admit Date: 05/29/2024 5:34 PM @FE@ PCP: Oswaldo Serrano MD Patient seen and examined Chart , telemtry reviewed Symptoms Patient denies chest pain, dyspnea, palpitations, sweating or syncope.Sitting on side of bed Data Vitals: 06/06/24 0018 06/06/24 0400 06/06/24 0600 06/06/24 0910 BP: 111/54 101/62 105/57 BP Location: Left arm Left arm Left arm Patient Position: Sitting Pulse: 96 85 85 Resp: 18 18 Temp: 36.7 ??C (98 ??F) 36.9 ??C (98.5 ??F) 36.9 ??C (98.4 ??F) TempSrc: Oral Oral Axillary SpO2: 91% 93% 94% Weight: 116.7 kg (257 lb 4.4 oz) Height: Intake/Output Summary (Last 24 hours) at 06/06/2024 1022 Last data filed at 06/05/2024 1811 Gross per 24 hour Intake 840 ml Output -- Net 840 ml Lab Results Component Value Date WBC 5.6 06/06/2024 WBC 6.3 06/05/2024 WBC 6.2 06/04/2024 HGB 11.8 (L) 06/06/2024 HGB 12.9 06/05/2024 HGB 12.2 06/04/2024 HCT 37.3 06/06/2024 HCT 39.7 06/05/2024 HCT 38.0 06/04/2024 Lab Results Component Value Date SODIUM 133 (L) 06/06/2024 SODIUM 131 (L) 06/05/2024 SODIUM 131 (L) 06/04/2024 POTASSIUM 4.0 06/06/2024 POTASSIUM 4.8 06/05/2024 POTASSIUM 4.2 06/04/2024 CHLORIDE 98 06/06/2024 CHLORIDE 96 (L) 06/05/2024 CHLORIDE 95 (L) 06/04/2024 CO2 26 06/06/2024 CO2 26 06/05/2024 CO2 28 06/04/2024 CREATININE 0.68 06/06/2024 CREATININE 0.68 06/05/2024 CREATININE 0.72 06/04/2024 GLUCOSE 216 (H) 06/06/2024 GLUCOSE 241 (H) 06/06/2024 GLUCOSE 205 (H) 06/05/2024 GLUCOSE 198 06/05/2024 GLUCOSE 170 06/05/2024 GLUCOSE 104 06/04/2024 CALCIUM 8.8 06/06/2024 CALCIUM 9.0 06/05/2024 CALCIUM 8.7 06/04/2024 No results found for: PTT Lab Results Component Value Date PT 20.9 (H) 06/05/2024 Lab Results Component Value Date INR 1.91 (H) 06/05/2024 No results found for: BNP No components found for: TROPONIN No results found for: CHOL , TRIG , HDL , LDLCALC Lab Results Component Value Date ALBUMIN 2.9 (L) 06/06/2024 ALBUMIN 3.1 (L) 06/05/2024 ALBUMIN 3.1 (L) 06/04/2024 ALKPHOS 238 (H) 06/06/2024 ALKPHOS 284 (H) 06/05/2024 ALKPHOS 272 (H) 06/04/2024 ALT <5 (L) 06/06/2024 ALT 5 (L) 06/05/2024 ALT <5 (L) 06/04/2024 AST 16 06/06/2024 AST 19 06/05/2024 AST 20 06/04/2024 No components found for: MAGMGDL No results found for: TSH No results found for: T3FREE No results found for: [id number] Pain Score: 10 - Worst possible pain Meds MEDICATIONS FOR CURRENT ENCOUNTER: SCHEDULED MEDICATIONS: Scheduled Medications Medication Dose Route Frequency carvediloL (COREG) tablet 6.25 mg 6.25 mg oral BID with meals (bkfst, dinner) ceFAZolin (ANCEF) 2,000 mg/100 mL in dextrose (premix) 2,000 mg 2,000 mg intravenous Q8H GALINA dilTIAZem (CARDIZEM) tablet 30 mg 30 mg oral TID dofetilide (TIKOSYN) capsule 500 mcg 500 mcg oral BID escitalopram (LEXAPRO) tablet 10 mg 10 mg oral Daily ferrous sulfate delayed release tablet 65 mg of elemental iron 65 mg of elemental iron oral Daily with breakfast furosemide (LASIX) 10 mg/mL injection 40 mg 40 mg intravenous BID DIURETIC insulin glargine (LANTUS, SEMGLEE) 100 unit/mL injection 18 Units 18 Units subcutaneous QAM insulin lispro (HumaLOG, ADMELOG) 100 unit/mL injection 0-4 Units 0-4 Units subcutaneous Nightly insulin lispro (HumaLOG, ADMELOG) 100 unit/mL injection 0-5 Units 0-5 Units subcutaneous TID with meals insulin lispro (HumaLOG, ADMELOG) 100 unit/mL injection 10 Units 10 Units subcutaneous TID with meals levothyroxine (SYNTHROID) tablet 75 mcg 75 mcg oral Daily - 0600 nortriptyline (PAMELOR) capsule 10 mg 10 mg oral Nightly pantoprazole DR (PROTONIX) extended release tablet 40 mg 40 mg oral Daily rivaroxaban (XARELTO) tablet 20 mg 20 mg oral Daily with dinner sacubitriL-valsartan (ENTRESTO) 24-26 mg tablet 1 tablet 1 tablet oral BID sodium chloride 0.9% flush 5-10 mL 5-10 mL intra-catheter Q12H GALINA CONTINUOUS MEDICATIONS: Continuous Medications Medication Dose Last Rate PRN MEDICATIONS: PRN Medications Medication Dose Route Frequency Last Admin dextrose oral liquid liquid 15 g 15 g oral Q15 Min PRN Or dextrose (D10W) 10% bolus 250 mL 250 mL intravenous Q15 Min PRN docusate sodium (COLACE) capsule 100 mg 100 mg oral BID PRN glucagon injection 1 mg 1 mg intramuscular Q30 Min PRN HYDROcodone-acetaminophen (NORCO) 5-325 mg per tablet 1 tablet 1 tablet oral QID PRN 1 tablet at 06/06/24 0601 ondansetron (ZOFRAN) injection 4 mg 4 mg intravenous Q6H PRN polyethylene glycol (MIRALAX) packet 17 g 17 g oral Daily PRN 17 g at 06/04/24 1043 sodium chloride 0.9% flush 5-20 mL 5-20 mL intra-catheter PRN Allergies Allergen Reactions Sulfa (Sulfonamide Antibiotics) [...] or edema. Peripheral pulse palpable Assessment /Plan . Questionable endocarditis -no vegetations seen on CHANCE -continue therapy per Infectious Disease until 06-09-24 Atrial fibrillation -CHANCE discovered left atrial appendage clot therefore no cardioversion was attempted -Tikosyn loading has been started, QTC 523 msec on 06/02, repeat ECG today -she remains in AFib on telemetry and on exam with fairly well-controlled rate Dislodged catheter -in pulmonary artery -seen on both CT scan and CHANCE Acute on chronic congestive heart failure -clinically compensated at this time -EF 30% by echo Upgrade to BiV AICD in future Neck pain -source unclear Diabetes type 2 -per hospitalist Hypothyroid -treated Sandro Hong MD * Ty Mcfarland MD - 06/06/2024 8:22 AM CDT Cardiology follow-up note-[facility] Patient was seen examined in room 825. She was getting her hair braided .Appeared in good spirits Past Medical History: Diagnosis Date A-fib (CMS/HCC) [...] Admission Medication Sig Dispense Refill Last Dose BASAGLAR 100 unit/mL (3 mL) pen for injection Inject 18 Units under the skin daily carvediloL (COREG) 25 mg tablet Take 1 tablet (25 mg total) by mouth 2 (two) times a day with meals dilTIAZem (CARDIZEM) 30 mg tablet Take 1 tablet (30 mg total) by mouth 2 (two) times a day docusate sodium (COLACE) 100 mg capsule Take 1 capsule (100 mg total) by mouth 2 (two) times a day Entresto 24-26 mg tablet Take 1 tablet by mouth 2 (two) times a day escitalopram (LEXAPRO) 10 mg tablet Take 1 tablet (10 mg total) by mouth daily Farxiga 10 mg tablet Take 1 tablet (10 mg total) by mouth daily furosemide (LASIX) 40 mg tablet Take 1 tablet (40 mg total) by mouth daily nortriptyline (PAMELOR) 10 mg capsule Take 1 capsule (10 mg total) by mouth daily NovoLOG 100 unit/mL (3 mL) pen for injection Inject 10 Units under the skin 3 (three) times a day with meals Plus slide potassium chloride ER 20 mEq CR tablet Take 1 tablet (20 mEq total) by mouth daily albuterol HFA (PROVENTIL HFA,VENTOLIN HFA,PROAIR HFA) 90 mcg/actuation inhaler Inhale 2 puffs every6 (six) hours as needed for wheezing cholecalciferol (VITAMIN D-3) 5,000 unit tablet Take 1 tablet (5,000 Units total) by mouth daily ferrous sulfate 325 [...] mcg total) by mouth every morning multivit tdyajdxz-turt-TY-calcium (THERA-M) 9 mg iron-400 mcg tablet Take 1 tablet by mouth daily omeprazole (PriLOSEC) 20 mg capsule Take 1 capsule (20 mg total) by mouth daily Xarelto 20 mg tablet Take 1 tablet (20 mg total) by mouth daily with dinner Current Facility-Administered Medications: carvediloL (COREG) tablet 6.25 mg, 6.25 mg, oral, BID with meals (bkfst, dinner), Raji Hollis MD, 6.25 mg at 06/05/24 1722 ceFAZolin (ANCEF) 2,000 mg/100 mL in dextrose (premix) 2,000 mg, 2,000 mg, intravenous, Q8H GALINA, Mike Hollis MD, Last Rate: 200 mL/hr at 06/06/24 0441, 2,000 mg at 06/06/24 0441 dextrose oral liquid liquid 15 g, 15 g, oral, Q15 Min PRN OR dextrose (D10W) 10% bolus 250 mL, 250 mL, intravenous, Q15 Min PRN, Mike Hollis MD dilTIAZem (CARDIZEM) tablet 30 mg, 30 mg, oral, TID, Mike Hollis MD, 30 mg at docusate sodium (COLACE) capsule 100 mg, 100 mg, oral, BID PRN, Mike Hollis MD, 100 mgat 06/04/24 1043 dofetilide (TIKOSYN) capsule 500 mcg, 500 mcg, oral, BID, Ty Mcfarland MD, 500 mcg at 06/05/242125 escitalopram (LEXAPRO) tablet 10 mg, 10 mg, oral, Daily, Mike Hollis MD, 10 mg at 06/05/24 0833 ferrous sulfate delayed release tablet 65 mg of elemental iron, 65 mg of elemental iron, oral, Daily with breakfast, Mike Hollis MD, 65 mg of elemental iron at 06/05/24 0833 furosemide (LASIX) 10 mg/mL injection 40 mg, 40 mg, intravenous, BID DIURETIC, Mike Hollis MD, 40 mg at 06/05/24 1614 glucagon injection 1 mg, 1 mg, intramuscular, Q30 Min PRN, Mike Hollis MD HYDROcodone-acetaminophen (NORCO) 5-325 mg per tablet 1 tablet, 1 tablet, oral, QID PRN, Mike Hollis MD, 1 tablet at 06/06/24 0601 insulin glargine (LANTUS, SEMGLEE) 100 unit/mL injection 18 Units, 18 Units, subcutaneous, QAM, Elly Julian MD, 18 Units at 06/05/24 0834 insulin lispro (HumaLOG, ADMELOG) 100 unit/mL injection 0-4 Units, 0-4 Units, subcutaneous, Nightly, Mike Hollis MD, 1 Units at 06/05/242124 insulin lispro (HumaLOG, ADMELOG) 100 unit/mL injection 0-5 Units, 0-5 Units, subcutaneous, TID with meals, Mike Hollis MD, 1 Units at 06/05/24 1723 insulin lispro (HumaLOG, ADMELOG) 100 unit/mL injection 10 Units, 10 Units, subcutaneous, TID with meals, Elly Julian MD, 10 Units at 06/05/24 172 levothyroxine (SYNTHROID) tablet 75 mcg, 75 mcg, oral, Daily - 0600, Mike Hollis MD, 75 mcg at 06/06/24 0441 nortriptyline (PAMELOR) capsule 10 mg, 10 mg, oral, Nightly, Mike Hollis MD, 10 mg at 06/05/242125 ondansetron (ZOFRAN) injection 4 mg, 4 mg, intravenous, Q6H PRN, Mike Hollis MD pantoprazole DR (PROTONIX) extended release tablet 40 mg, 40 mg, oral, Daily, Mike Hollis MD, 40 mg at 06/05/24 0833 polyethylene glycol (MIRALAX) packet 17 g, 17 g, oral, Daily PRN, Mike Hollis MD, 17 gat 06/04/24 1043 rivaroxaban (XARELTO) tablet 20 mg, 20 mg, oral, Daily with dinner, 20 mg at 06/05/24 1722 FOLLOWED BY [DISCONTINUED] rivaroxaban (XARELTO) tablet 20 mg, 20 mg, oral, Daily with dinner, Mike Hollis MD sacubitriL-valsartan (ENTRESTO) 24-26 mg tablet 1 tablet, 1 tablet, oral, BID, Mike Hollis MD, 1 tablet at 06/05/24 2126 sodium chloride 0.9% flush 5-10 mL, 5-10 mL, intra-catheter, Q12H GALINA, Eben Pettit MD, 10 mL at 06/05/24 212 sodium chloride 0.9% flush 5-20 mL, 5-20 mL, intra-catheter, PRN, Eben Pettit MD Allergies Allergen Reactions Sulfa (Sulfonamide Antibiotics) Social History Tobacco Use Smoking status: Never Smokeless tobacco: Never Substance and Sexual Activity Drug use: None Sexual activity: None Alcohol Use: Not At Risk (06/01/2024) AUDIT-C Frequency of Alcohol Consumption: Never Average Number of Drinks: Patient does not drink Frequency of Binge Drinking: Never No family history on file. Review of Systems: No new complaints continues to be fatigued denies fever chills continues to have irregular heart beating Objective Vitals: 24hr Min/Max: Temp Min: 36.5 ??C (97.7 ??F) Max: 36.9 ??C (98.5 ??F) Pulse Min: 76 Max: 97 BP Min: 92/56 Max: 167/84 Resp Min: 17 Max: 36 SpO2 Min: 90 % Max: 98 % Most Recent: Vitals: 06/06/24 0400 BP: 101/62 Pulse: 85 Resp: 18 Temp: 36.9 ??C (98.5 ??F) SpO2: 93% I/O last 2 completed shifts: In: 1320 [P.O.:1320] Out: - No intake/output data recorded. Physical Exam: General: in no apparent distress Neuro: Alert and oriented x 3, moves all extremities well HEENT: normocephalic, atraumatic, thyroid not enlarged. I do not appreciate JVD. Neck: There are nocarotid bruits. Lungs: symmetric, unlabored, clear to auscultation bilaterally Heart: irregular rate & rhythm, no murmurs, rubs, or gallops Abdomen: soft, non-tender, non-distended, bowel sounds present, systolic murmur present Extremities: no LE edema, palpable peripheral pulses BL Neurologic: No focal deficits Lab/Radiology/Diagnostic Review: Laboratory review: Lab results in the last 24 hours: Recent Results (from the past 24 hour(s)) POCT glucose Collection Time: 06/05/24 11:29 AM Result Value Ref Range Glucose, POC 231 (H) 70 - 199 mg/dL POCT glucose Collection Time: 06/05/24 4:47 PM Result Value Ref Range Glucose, POC 198 70 - 199 mg/dL POCT glucose Collection Time: 06/05/24 8:31 PM Result Value Ref Range Glucose, POC 205 (H) 70 - 199 mg/dL CBC with auto differential Collection Time: 06/06/24 3:59 AM Result Value Ref Range WBC 5.6 3.8 - 9.9 K/cumm Hgb 11.8 (L) 11.9 - 15.5 g/dL Hct 37.3 35.6 - 45.5 % Plt 319 150 - 400 K/cumm MPV 9.2 9.1 - 12.3 fL RBC 3.67 (L) 3.90 - 5.20 M/cumm MCV 101.6 (H) 81.3 - 96.4 fL MCH 32.2 27.1 - 33.3 pg MCHC 31.6 (L) 32.3 - 35.7 g/dL RDW CV 13.1 11.1 - 14.9 % RDW SD 49.2 (H) 35.7 - 48.1 fL NRBC abs 0.00 0.00 - 0.01 K/cumm Comprehensive metabolic panel Collection Time: 06/06/24 3:59 AM Result Value Ref Range Sodium 133 (L) 135 - 145 mmol/L Potassium, pl 4.0 3.3 - 4.9 mmol/L Chloride 98 97 - 110 mmol/L CO2 26 22 - 32 mmol/L Anion gap 9 2 - 15 mmol/L BUN 20 6 - 25 mg/dL Creatinine 0.68 0.60 - 1.10 mg/dL Glucose 241 (H) 70 - 199 mg/dL Calcium 8.8 8.5 - 10.3 mg/dL Bilirubin, total 0.4 0.1 - 1.2 mg/dL Protein, pl 7.3 6.5 - 8.5 g/dL Albumin 2.9 (L) 3.5 - 5.0 g/dL Alk phos 238 (H) 40 - 130 Units/L ALT <5 (L) 7 - 45 Units/L AST 16 10 - 45 Units/L Magnesium Collection Time: 06/06/24 3:59 AM Result Value Ref Range Magnesium 1.8 1.4 - 2.5 mg/dL Phosphorus Collection Time: 06/06/24 3:59 AM Result Value Ref Range Phosphorus, pl 3.2 2.3 - 4.5 mg/dL Differential, auto Collection Time: 06/06/24 3:59 AM Result Value Ref Range Neutrophil abs 3.7 1.5 - 6.5 K/cumm Imm gran abs 0.0 0.0 - 0.1 K/cumm Lymphocyte abs 1.1 0.8 - 3.3 K/cumm Monocyte abs 0.7 0.2 - 0.8 K/cumm Eosinophil abs 0.1 0.0 - 0.5 K/cumm Basophil abs 0.1 0.0 - 0.1 K/cumm Neutrophil pct 64.8 % Imm gran pct 0.5 % Lymphocyte pct 19.0 % Monocyte pct 11.9 % Eosinophil pct 2.0 % Basophil pct 1.8 % eGFR Collection Time: 06/06/24 3:59 AM Result Value Ref Range eGFR >90 >=60 mL/min/1.73 m2 POCT glucose Collection Time: 06/06/24 7:25 AM Result Value Ref Range Glucose, POC 216 (H) 70 - 199 mg/dL Lipids: No results found for: CHOL , CHLPL , HDL , LDLCALC , TRIG , CHOLHDL and Cardiac Enzymes: No results found for: CKTOTAL , CKMB , CKMBINDEX , TROPONINT ECG: Results for orders placed during the hospital encounter of 05/29/24 ECG 12 lead Narrative Vent Rate: 86 bpm RR Interval: 697 msec HI Interval: 0 msec QRS Duration: 157 msec QT Interval: 470 msec QTC Interval: 513 msec P-R-T [place]: 0 - 38 - 88 degrees IMPRESSION: ATRIAL FIBRILLATION WITH ABERRANT CONDUCTION OR VENTRICULAR PREMATURE COMPLEXES LEFT BUNDLE BRANCH BLOCK [120+ ms QRS DURATION, 80+ ms Q/S IN V1/V2, 85+ ms R IN I/aVL/V5/V6] ABNORMAL ECG Compared to prior EKG, ventricular pacing is no longer present Electronically Signed By: Antonio Carlos MD Assessment /Plan Principal Problem: Endocarditis Active Problems: SOB (shortness of breath) Acute on chronic systolic congestive heart failure (CMS/HCC) ([facility]) Neck pain Hyponatremia Chronic a-fib ([facility]) ([facility]) Type 2 diabetes mellitus, with long-term current use of insulin ([facility]) Hypothyroid JOSE (obstructive sleep apnea) Diabetes mellitus with hyperglycemia ([facility]) ([facility]) ASSESSMENT/PLAN: 1. Questionable endocarditis -no vegetations seen on CHANCE -continue therapy per Infectious Disease until 06-09-24 Atrial fibrillation -CHANCE discovered left atrial appendage clot therefore no cardioversion was attempted -Tikosyn loading has been started, QTC is actually shorter than prior to starting the Tikosyn -she remains in AFib on telemetry and on exam with fairly well-controlled rate Dislodged catheter -in pulmonary artery -seen on both CT scan and CHANCE Acute on chronic congestive heart failure -clinically compensated at this time -EF 30% by echo Neck pain -source unclear Diabetes type 2 -per hospitalist Hypothyroid -treated In future would benefit from upgrade of dual-chamber ICD to Bi V ICD but that should not be done atleast for 30 days after antibiotics are finished * Elly Julian MD - 06/05/2024 5:32 PM CDT Daily Progress Chief complaint:Abdominal pain Subjective: D/w sister Dilia and onsite case manager plan is PICC line and SNF till antibiotics completed 06/22, initial date was 06-08, PICC could not be placed at bedside, now has a hematoma RUE, doppler requested, CXR showed cardiomegaly, s/p RUE IR guided PICC placement, requested repeat CXR Interval History: As per HPI-Ms Lei Rodriguez is a 63 y.o. female with history of afib, CHF, DM, GERD,HTN, Intellectual disability, OAB, JOSE, thyroid disease, AICD, PPM, Cholecystectomy. Presented to [facility] on with nausea, vomiting, diarrhea, and abdominal pain. Livesat home with her sister. Limited historian due to intellectual disability. She was ultimately found to have endocarditis. Persistent positive blood cultures for staph aureus. ED put on vanc, zosyn, and IVF initially Now on Ancef at transfer Currently complains of right neck pain radiating to her right ear. Pain also on right mastoid. No hearing change, tinnitus, or hearing loss. She has been a little SOB on laying down for the past few days. No chest pain, pressure, or discomfort. Admit eval: Hyponatremia to 122 17% PMN with normal WBC. Plt 109 Cr 1 --> 0.7 Bili 2.4 AST 127 ALT 85 Alk selvin 159 CXR mild edema with trace pleural effuion and cardiomegaly CT a/p: Small hiatal hernia UA without UTI. 3+ glucose, 1+ ketones, 1+ blood. 0-2 RBC and 0-5 WBC. Negative FLU, RSV, COVID EKbpm afib LBBB 4/4 blood cx positive staph aureus Echo: EF 40-45% Mod LAE. JOSEPH TV vegetation at 2mm not clearly involving the AICD. CHANCE: LAE. Small central MR. 2mm TV vegetation mobile and prolapses into the right atrium in systole Most recent labs 05/20 INR 3.9 PTT 50 05/28 WBC 13.3, Hgb 12.4, PLT 258, 74% PMN. 05/28: NA 131. Cr 0.5 AST 45 ALT 21 AP 434 CRP elevated 31.1 OSH imaging (final reads below): C spine 05/21 No acute fx or traumatic malalignment. No severe central canal or neural foraminal narrowing HCT 05/21 No acute intracranial process CXR 05/21 Mild pulmonary edema and trace pleural effusion. Cardiomegaly CT abdomen/pelvis 05/21 Small sliding hiatal hernia Abdominal ultrasound Normal RUQ u/S post luz 05-30:Patient sitting up in a chair, d/w Dr. Mcfarland, requested CT chest which shows possible catheter or wire fragment, CTS to evaluate in a.m., advanced diet 05-31:Patient lying in bed, d/w Dr. Mcfarland-cleared from cards standpoint, EKG stable on Tikosyn-continue current dose as per EP, d/w Dr. Alejandra CTS -no surgical intervention planned for small wire/fragment in pulm artery, d/w Dr. Abernathy-IR retrieval not possible, d/w ID-await final antibiotic recs 06-01:Patient lying in bed, d/w ID, attempt to get culture results from Ernie as per ID, CT abdomen/pelvis no evidence of source of infection, still has volume overload, continue IV lasix 06-02:D/w sister Dilia, no new complaints, d/w SW 06-03:Patient lying in bed, smiling, in better spirits today, discussed plan with her and with RN, no new issues 06-04:Patient lying in bed, states she feels better, ID has changed antibiotic duration to 06/22, requested PICC and SW consult-may need SNF if family not comfortable with antibiotic administration at home, d/w onsite case managertrain operations manager of Systems Gen: No fever, No chills, CV: No chest pain Resp: No SOB GI: No nausea, No vomiting, abdominal pain controlled Objective: Vitals: 24hr Min/Max: Temp Min: 36.5 ??C (97.7 ??F) Max: 36.9 ??C (98.4 ??F) Pulse Min: 76 Max: 97 BP Min: 92/56 Max: 167/84 Resp Min: 16 Max: 36 SpO2 Min: 90 % Max: 98 % Most Recent : Vitals: 06/05/24 1505 06/05/24 1509 06/05/24 1510 06/05/24 1604 BP: 124/62 126/73 BP Location: Left arm Patient Position: Lying;HOB 30 degrees Pulse: 77 76 82 Resp: (!) 34 (!) 36 19 Temp: 36.5 ??C (97.7 ??F) TempSrc: Oral SpO2: 93% 95% 93% Weight: Height: Physical Exam: Gen:Well built female Lungs:Symmetrical breath sounds b/l Heart:S1,S2 heard Abdomen:Soft, NT, BS+ Extremities:No edema b/l LE Neuro:Awake, alert, answers questions Lab/Radiology/Diagnostic Review: Recent Results (from the past 24 hour(s)) POCT glucose Collection Time: 06/04/24 8:31 PM Result Value Ref Range Glucose, POC 135 70 - 199 mg/dL CBC with auto differential Collection Time: 06/05/24 12:31 AM Result Value Ref Range WBC 6.3 3.8 - 9.9 K/cumm Hgb 12.9 11.9 - 15.5 g/dL Hct 39.7 35.6 - 45.5 % Plt 371 150 - 400 K/cumm MPV 9.1 9.1 - 12.3 fL RBC 3.92 3.90 - 5.20 M/cumm MCV 101.3 (H) 81.3 - 96.4 fL MCH 32.9 27.1 - 33.3 pg MCHC 32.5 32.3 - 35.7 g/dL RDW CV 13.2 11.1 - 14.9 % RDW SD 49.4 (H) 35.7 - 48.1 fL NRBC abs 0.00 0.00 - 0.01 K/cumm Comprehensive metabolic panel Collection Time: 06/05/24 12:31 AM Result Value Ref Range Sodium 131 (L) 135 - 145 mmol/L Potassium, pl 4.8 3.3 - 4.9 mmol/L Chloride 96 (L) 97 - 110 mmol/L CO2 26 22 - 32 mmol/L Anion gap 9 2 - 15 mmol/L BUN 18 6 - 25 mg/dL Creatinine 0.68 0.60 - 1.10 mg/dL Glucose 170 70 - 199 mg/dL Calcium 9.0 8.5 - 10.3 mg/dL Bilirubin, total 0.7 0.1 - 1.2 mg/dL Protein, pl 8.0 6.5 - 8.5 g/dL Albumin 3.1 (L) 3.5 - 5.0 g/dL Alk phos 284 (H) 40 - 130 Units/L ALT 5 (L) 7 - 45 Units/L AST 19 10 - 45 Units/L Magnesium Collection Time: 06/05/24 12:31 AM Result Value Ref Range Magnesium 2.0 1.4 - 2.5 mg/dL Phosphorus Collection Time: 06/05/24 12:31 AM Result Value Ref Range Phosphorus, pl 2.7 2.3 - 4.5 mg/dL Differential, auto Collection Time: 06/05/24 12:31 AM Result Value Ref Range Neutrophil abs 4.2 1.5 - 6.5 K/cumm Imm gran abs 0.0 0.0 - 0.1 K/cumm Lymphocyte abs 1.2 0.8 - 3.3 K/cumm Monocyte abs 0.6 0.2 - 0.8 K/cumm Eosinophil abs 0.1 0.0 - 0.5 K/cumm Basophil abs 0.1 0.0 - 0.1 K/cumm Neutrophil pct 66.8 % Imm gran pct 0.5 % Lymphocyte pct 18.6 % Monocyte pct 10.1 % Eosinophil pct 2.1 % Basophil pct 1.9 % eGFR Collection Time: 06/05/24 12:31 AM Result Value Ref Range eGFR >90 >=60 mL/min/1.73 m2 POCT glucose Collection Time: 06/05/24 2:04 AM Result Value Ref Range Glucose, POC 178 70 - 199 mg/dL POCT glucose Collection Time: 06/05/24 6:28 AM Result Value Ref Range Glucose, POC 175 70 - 199 mg/dL Protime-INR Collection Time: 06/05/24 7:55 AM Result Value Ref Range PT 20.9 (H) 9.7 - 13.0 sec INR 1.91 (H) 0.90 - 1.20 POCT glucose Collection Time: 06/05/24 11:29 AM Result Value Ref Range Glucose, POC 231 (H) 70 - 199 mg/dL POCT glucose Collection Time: 06/05/24 4:47 PM Result Value Ref Range Glucose, POC 198 70 - 199 mg/dL ECG 12 lead Result Date: 05/30/2024 Narrative: Vent Rate: 109 bpm RR Interval: 548 msec HI Interval: 0 msec QRS Duration: 149 msec QT Interval: 398 msec QTC Interval: 462 msec P-R-T [place]: 0 - 96 - 89 degrees IMPRESSION: ATRIAL FIBRILLATION WITH RAPID VENTRICULAR RESPONSE BORDERLINE RIGHT AXIS DEVIATION [QRS AXIS > 90] INTRAVENTRICULAR CONDUCTION DELAY [130+ ms QRS DURATION] ABNORMAL ECG Unchanged compared to an EKG done earlier on May 30, 2024 Electronically Signed By: Dr. Shiloh Muhammad [facility] Chest WO Contrast Result Date: 05/30/2024 [...] Complete W Doppler/CF Result Date: 05/30/2024 Narrative: [place] [address] Echocardiogram Report Patient Name: LEI RODRIGUEZ V : 1960 Study Date: 05/30/2024 7:47:08 AM Gender: F Tech: GUILHERME Location: [id number] Ref Provider: TY MCFARLAND Height(Cm): 165 BSA: [...] 33.1 percent AV Mean PG 3 mmHg [id number] 5.71 [ 3.80 - 5.20 ] cm [...] Trivial pericardial effusion. Electronically Signed By: Coleen Kwok DO, RUBIO, MELISSA CANDELARIO 2024-05-30 09:18:05 CDT [...] Rate: 86 bpm RR Interval: 697 msec HI Interval: 0 msec QRS Duration: 145 msec QT Interval: 438 msec QTC Interval: 481 msec P-R-T [place]: 0 - 101 - 95 degrees IMPRESSION: ATRIAL FIBRILLATION RIGHT AXIS DEVIATION [QRS AXIS > 100] INTRAVENTRICULAR CONDUCTION DELAY [130+ ms QRS DURATION] ABNORMAL ECG Unchanged compared to 05/29/2021 Electronically Signed By: Dr. Shiloh Muhammad [facility] CT Chest PE (CTA) W Contrast Result Date: 05/30/2024 Narrative: EXAMINATION: CT CHEST PE (CTA) W CONTRAST HISTORY: Chest pain ORDER DATE: 05/30/2024 3:20AM TECHNIQUE: CT chest images were acquired using a chest angiographic protocol with 3-D imaging optimized for PE is obtained [id number] mL of Optiray 350 IV. 2D Coronal [...] findings as described above. Stat report by [facility] . Electronically signed by: Andrea Abernathy M.D. [...] and partially calcified bulging disc contributing to [id number] central spinal stenosis. Disc osteophyte complex also contributing to [id number] central spinal stenosis at C4-C5 level. No significant disc bulge or herniation. No severe spinal canal stenosis. Uncovertebral joint hypertrophy contributing to multilevel bilateral neural foraminal stenosis. Lungs: Lung apices are normal. Soft tissues: Unremarkable. Impression: No acute cervical spine injury. Stat report by [facility] Stat report by [facility] Electronically signed by: Andrea Abernathy M.D. CT [...] No acute intracranial findings. Stat report by [facility] Electronically signed by: Andrea Abernathy M.D. ECG 12 lead Result Date: 05/30/2024 Narrative: Vent Rate: 93 bpm RR Interval: 645 msec HI Interval: 0 msec QRS Duration: 97 msec QT Interval: 197 msec QTC Interval: 247 msec P-R-T [place]: 0 - 118 - 0 degrees IMPRESSION: [...] Electronically Signed By: Antonio Carlos MD Assessment/Plan Endocarditis: Continue ancef till 06/22 as per ID. Blood cultures ngtd. ID and Cardiology Consulted.OSH blood cx-records requested. Telemetry. D/w Dr. Mcfarland/ CTS/IR-no further evaluation for removal of possible wire fragment /catheter in pulm artery on CT chest as risks outweigh benefits. Now that antibiotic duration has been extended beyond 06-08 requested PICC line-done in IR 06-05 as bedsideunsuccesful b/l attempted-hematoma RUE-requested ultrasound, will need SNF as family uncomfortable with antibiotic administration at home, d/w sister Dilia and onsite case manager. CXR 0-40-[id number]-requested repeat CXR in a.m. post PICC. Acute on chronic Systolic CHF Troponins flat. Echo shows EF 30%. On IV lasix. Evidence of volume overload on CT chest. On Entresto, coreg. Neck pain Seem to be MSK. CT head/C spine no acute pathology. Flexeril x1 06-02. Chronic afib Continue coreg, dilt, and Xarelto, Tikosyn as per Cards DM Some elevated blood sugars on Lantus and SSI. Added scheduled Humalog .Increased lantus dose and scheduled Humalog dose on 05-31 as blood sugars elevated. One elevated blood sugar on 06-05. Hypothyroidism On Synthroid JOSE Apparently was not using her NPPV at OSH, Defer BMI 47.22 DVT ppx: Merlejeffto MDM:Mod Disposition:SNF as antibiotic duration extended as per ID recs to 06/22 due to presence of AICD Expected Date of Discharge: Await SNF Barriers to Discharge:Await SNF These fluid and electrolyte abnormalities are being treated, evaluated or monitored: Hyperkalemia-resolved Hyponatremia-monitor * Nikki Gallegos RD - 06/05/2024 3:18 PM CDT NUTRITION ASSESSMENT Nutrition Status: Patient appears adequately nourished at this time. REASON FOR ASSESSMENT: Length of Stay Encounter Date: 06/05/24 3:18 PM Admission Date: 05/29/2024 LOS: 7 days HPI: Patient is a 63 y.o. female with history of afib, CHF, DM, GERD,HTN, Intellectual disability, OAB, JOSE, thyroid disease, AICD, PPM, Cholecystectomy. 06/05: Modifying diet from consistent carb 1600kcal to 2000kcal. Continue with heart healthy diet. Heart healthy and MyPlate edu given. OP referral entered. Objective Past Medical History: Diagnosis Date A-fib (CMS/HCC) (HCC) CHF (congestive heart failure) (CMS/HCC) (HCC) Diabetes mellitus (HCC) GERD (gastroesophageal reflux disease) Hypertension Intellectual disability OAB (overactive bladder) Sleep apnea Thyroid disease Past Surgical History: Procedure Laterality Date CARDIAC DEFIBRILLATOR PLACEMENT CHOLECYSTECTOMY INSERT / REPLACE / REMOVE PACEMAKER OTHER SURGICAL HISTORY 05/31/2024 CHANCE/CARDIOVERSION Social History Tobacco Use Smoking status: Never Smokeless tobacco: Never Substance and Sexual Activity Drug use: None Sexual activity: None Alcohol Use: Not At Risk (06/01/2024) AUDIT-C Frequency of Alcohol Consumption: Never Average Number of Drinks: Patient does not drink Frequency of Binge Drinking: Never MEDICATION/LAB REVIEW: Scheduled Meds: carvediloL, 6.25 mg, oral, BID with meals (bkfst, dinner) ceFAZolin, 2,000 mg, intravenous, Q8H GALINA dilTIAZem, 30 mg, oral, TID dofetilide, 500 mcg, oral, BID escitalopram, 10 mg, oral, Daily ferrous sulfate, 65 mg of elemental iron, oral, Daily with breakfast furosemide, 40 mg, intravenous, BID DIURETIC insulin glargine, 18 Units, subcutaneous, QAM insulin lispro, 0-4 Units, subcutaneous, Nightly insulin lispro, 0-5 Units, subcutaneous, TID with meals insulin lispro, 10 Units, subcutaneous, TID with meals levothyroxine, 75 mcg, oral, Daily - 0600 nortriptyline, 10 mg, oral, Nightly pantoprazole DR, 40 mg, oral, Daily rivaroxaban, 20 mg, oral, Daily with dinner sacubitriL-valsartan, 1 tablet, oral, BID sodium chloride 0.9%, 5-10 mL, intra-catheter, Q12H GALINA Continuous Infusions: PRN Meds: dextrose OR dextrose docusate sodium glucagon HYDROcodone-acetaminophen ondansetron polyethylene glycol sodium chloride 0.9% Recent Labs Lab Units 06/05/24 0031 06/04/24 0453 06/03/24 0305 SODIUM mmol/L 131* 131* 133* POTASSIUM PLASMA mmol/L 4.8 4.2 4.4 CHLORIDE mmol/L 96* 95* 96* CO2 mmol/L 26 28 29 BUN SERUM mg/dL 18 18 20 CREATININE mg/dL 0.68 0.72 0.80 [id number] mL/min/1.73 m2 >90 >90 83 CALCIUM mg/dL 9.0 8.7 8.7 ALBUMIN g/dL 3.1* 3.1* 2.8* PHOSPHORUS PLASMA mg/dL 2.7 3.0 3.3 MAGNESIUM mg/dL 2.0 2.1 2.0 Recent Labs Lab Units 06/05/24 1129 06/05/24 0628 06/05/24 0204 06/05/24 0031 06/04/24 2031 06/04/24 1631 06/04/24 1111 GLUCOSE mg/dL -- -- -- 170 -- -- -- POC GLUCOSE MONITOR mg/dL 231* 175 178 -- 135 105 274* ALT Date Value Ref Range Status 06/05/2024 5 (L) 7 - 45 Units/L Final AST Date Value Ref Range Status 06/05/2024 19 10 - 45 Units/L Final Alk phos Date Value Ref Range Status 06/05/2024 284 (H) 40 - 130 Units/L Final Lab Results Component Value Date HGBA1C 10.4 (H) 02/12/2017 NURSING ASSESSMENT: Last BM Date: 06/05/24 Bowel Sounds (All Quadrants): Active Anthony Scale Score: 21 Skin Integrity: Intact Edema: Trace Vital Signs BP: 124/62 Temp: 36.9 ??C (98.4 ??F) Pulse: 76 Resp: (!) 36 SpO2: 95 % Intake/Output Summary (Last 24 hours) at 06/05/2024 1518 Last data filed at 06/05/2024 1316 Gross per 24 hour Intake 840 ml Output -- Net 840 ml Adult Malnutrition Scoring Tool (MST) What diet do you follow at home?: regular Have You Recently Lost Weight Without Trying?: No Have you been eating poorly because of a decreased appetite?: No Malnutrition Screening Tool (MST) Score: 0 Hunger Screen - Admission Within the past 12 months the food we bought just didn't last and we didn't have money to get more.: Sometimes true Within the past 12 months we worried whether our food would run out before we got money to buy more.: Sometimes true Within the past 12 months, you worried that your food would run out before you got the money to buymore.: Never true Within the past 12 months, the food you bought just didn't last and you didn't have money to get more.: Never true Anthropometrics Weight: 116.8 kg (257 lb 8 oz) Admission Weight : 128.7 kg Weight Change: -0.80 kg (-1.76 lbs) IBW/kg (Calculated) : 56.7 kg Height: 165.1 cm (5' 5 ) Weight in (lb) to have BMI = 25: 149.9 BMI (Calculated): 42.8 Wt Readings from Last 10 Encounters: 06/05/24 116.8 kg (257 lb 8 oz) 04/24/18 119.7 kg (264 lb) ESTIMATED NEEDS: Total Kcal/kg Estimated Needs : 2102.4 Kcal/k. Type of Weight Used for Estimated Kcals: Current Total Protein Estimated Needs (gm): 93.44 Protein Needs Based on g/k.8 Type of Weight Used for Estimated Protein : Current Fluid Needs Based on : (1-2 L (CHF)) Type of Weight Used for Estimated Fluid Needs: RD determined Dietary Orders (From admission, onward) Start Ordered 05/31/24 1019 Adult Diet Restricted; Low Fat, Low Chol, Low Na; Consistent Carb 1600 kilo Diet effective now Question Answer Comment (CH) Diet type Restricted Fat / Sodium Restriction: Low Fat, Low Chol, Low Na Diabetic: Consistent Carb 1600 kilo 05/31/24 1018 05/30/24 2100 Bedtime snack At bedtime Comments: If bedtime BG is less than 100mg/dl, give patient a 15 gram carbohydrate snack. 05/29/241 Allergies: Reviewed. IMPRESSION: RD screened Pt for LOS. Pt in bed, and sister Peg at bedside. Peg reports she has a good appetite at home and at the hospital. All PO intakes documented at 100%. Pt and sister unsure of anyweight changes. RD obtained new weight via bed scale. Bed scale read at: 258 pounds. Minimal weightHx available. Weight fluctuations could be fluid related d/t CHF. Currently on lasix. Trace edema noted. Pt denies any chewing or swallowing difficulties despite having no teeth and no dentures. I/Os: +2,110 mL. Labs/meds reviewed. A1C 9.5%. glu/24hrs: 105-231. On insulin regimen. Continue CC diet. Hyponatermia noted. Skin: intact. BM: Pt reports some constipation, but had a bowel movement 06/04 and today. Peg was interested in low sodium diet education. RD came back with Steps to your Health, Low Sodium Handout, and MyPlate. Pt was off the floor receiving PICC line. RD educated Peg and stephanie Dobbs who was on the phone with Peg. Discussed low sodium/no sodium options, how to read a food label, the 5%/20% rule for sodium, saturated fat, and added sugars,went over foods recommended/not recommended in a heart healthy diet, discussed MyPlate,and foods with and without carbs. Peg interested in Out Patient Nutrition services. RD entered referral. Weights/Vitals Height Weight (LB) Weight (KG) Weight Method 02/12/2017 5' 5.984 246 lb 0.5 oz 111.6 kg 03/01/2017 5' 5.984 277 lb 9 oz 125.9 kg 03/09/2017 5' 5.984 264 lb 12.4 oz 120.1 kg 04/24/2018 5' 5 264 lb 119.75 kg 05/29/2024 5' 5 283 lb 11.7 oz 128.7 kg Bed scale 05/31/2024 5' 5 267 lb 6.7 oz 121.3 kg 267 lb 6.7 oz 121.3 kg 06/03/2024 256 lb 13.4 oz 116.5 kg 06/04/2024 259 lb 4.2 oz 117.6 kg 06/05/2024 257 lb 8 oz 116.8 kg ASPEN MALNUTRITION ASSESSMENT: NA NUTRITION FOCUSED PHYSICAL EXAM: Not clinically indicated, no concerns for malnutrition at this time. NUTRITION DIAGNOSIS: Nutrition Diagnosis 1: Altered nutrition-related laboratory values Related to: Physiologic issue, Food choices Evidenced by: Patient interview, Lab abnormality (A1C: 9.5%) INTERVENTION(S): Summary: Assess for nutrition changes, Education, nutrition, [place] diet preferences within the limits of nutrition care order, Modify diet, Communication, referral to outpatient program, Initial assessment GOAL(S): Continue adequate PO intakes, Patient/caregiver able to teach back understanding of role of diet indisease process prior to discharge MONITORING/EVALUATION: Appetite, Blood glucoses, Labs, Plan of care, Weight changes, PO intake, Stool patterns, Discharge plans, Diet-related questions Diet Instructions Recommend to follow a consistent [...] and drink water throughout the day. Call [phone] to speak with a dietitian about anydiet related concerns. Recommend to follow up with outpatient nutrition counseling, ask your doctorfor referral and call [phone] to make an appointment. Additional Resources [place] [employer]: www.diabetes.org/nutrition [place] [employer]: www.heart.org/en/healthy-living/healthy-eating Nutrition Follow-Up : 06/13/24 Nikki Gallegos MS,RD,LD * Ranjana Nichols COTA - 06/05/2024 2:51 PM CDT Occupational Therapy Patient currently DARRON for PICC line. Will re attempt on next scheduled visit. KATARINA Barrow 06/05/24. 2:51 PM * Eben Pettit MD - 06/05/2024 11:24 AM CDT Infectious Disease Consult Consulting Physician: Eben Pettit MD. Reason for consult: MSSA bacteremia/Suspected endocarditis tricuspid valve. Review of systems/interval history. Afebrile Normal WBC count No new complaints. blood cultures no growth so far from 05/30 Objective: Vitals: 24hr Min/Max: Temp Min: 36.6 ??C (97.8 ??F) Max: 37 ??C (98.6 ??F) Pulse Min: 84 Max: 97 BP Min: 89/51 Max: 144/92 Resp Min: 16 Max: 16 SpO2 Min: 94 % Max: 95 % Most Recent : Vitals: 06/04/24 1959 06/05/24 0020 06/05/24 0534 06/05/24 0728 BP: 98/62 117/74 144/92 BP Location: Right arm Right arm Right arm Patient Position: Sitting Sitting Pulse: 88 84 97 Resp: 16 Temp: 36.8 ??C (98.3 ??F) 36.6 ??C (97.8 ??F) 36.7 ??C (98.1 ??F) TempSrc: Oral Oral Oral SpO2: 94% 95% 94% Weight: 116.8 kg (257 lb 8 oz) Height: Physical Exam: General appearance: alert, cooperative, no distress HEENT: (-)icterus, Oropharnyx is normal, NCAT Neck: No palpable LN Lungs: breath sounds normal and symmetric; minimal respiratory effort, no r/w/c Heart: regular rhythm, normal S1 and S2, no m/r/g Abdomen: soft without mass, non-tender, +bowel sounds, no HSM Extremities/Skin: no gross deformities, FROM, no new rashes, no ulcerations Vascular: no Edema, pulses present bilaterally Neuro: No focal deficits Psych: Appropriate mood and affect , intellectual disability Labs Reviewed. Recent Labs Lab Units 06/05/24 0031 06/04/24 0453 06/03/24 0305 WBC K/cumm 6.3 6.2 6.0 HEMOGLOBIN g/dL 12.9 12.2 11.8* HEMATOCRIT % 39.7 38.0 37.6 PLATELETS K/cumm 371 332 374 Recent Labs Lab Units 06/05/24 0031 06/04/24 0453 06/03/24 0305 BUN SERUM mg/dL 18 18 20 CREATININE mg/dL 0.68 0.72 0.80 Lab Results Component Value Date ALT 5 (L) 06/05/2024 AST 19 06/05/2024 ALKPHOS 284 (H) 06/05/2024 BILITOT 0.7 06/05/2024 Cultures Blood cultures 05/30 no growth so far Outside hospital 01/11 blood cultures reported to be positive for Staph aureus MSSA. From 05/21 and 05/22. [facility] echo reported as Tricuspid valve vegetation. CT chest noncontrast. 05/30 IMPRESSION: 1. Redemonstrated curvilinear radiopaque density extending from the proximal right lower lobe pulmonary artery into a subsegmental lateral basilar branch favors a catheter or wire fragment. 2. Findings most suggestive of heart failure with cardiomegaly, small volume pericardial effusion, and small bilateral pleural effusions and mild pulmonary edema. CT chest PE protocol 05/30 IMPRESSION: 1. Motion degraded evaluation of the pulmonary [...] LFTs. 5. Additional findings as described above. Assessment: MSSA bacteremia Documented at outside hospital, unknown date so far will follow-up with [facility]. 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. She underwent CHANCE, with no visible valve vegetation. Repeat blood cultures 05/30 remain no growth so far. She has AICD in place. Dislodged catheter/lead.. PA Atrial fibrillation CHF GERD Hypertension Obstructive sleep apnea Thyroid disease Intellectual disability Plan: Discussed with Dr. Neli Hutchinson, no vegetation seen on tricuspid valve. There is a dislodged lead/catheter, In Pulmonary artery, which is also reported in CT. There was a clot in MA[place], probably an appendage clot, hence synchronized Cardioversion was canceled. Continue on Ancef for now Follow up on blood cultures. Monitor fever curve and WBC count. Called microlab [facility] blood cultures 05/25 NG. blood cultures were positive for Staph aureus 05/21 and 05/22 requested fax from [facility]. Blood cultures were negative at outside hospital from 05/25, blood cultures remain negative at thisfacility from 05/30 CT abdomen and pelvis With no significant infectious findings Continue Ancef, 4 weeks total due to presence of ICD, end date 06/22 PICC line could not be placed bedside, ordered IR guided PICC line placement. Will follow. Eben Pettit MD 06/05/2024 [place] [facility] Office: [phone] Fax: [phone] Voice recognition software was used to complete this document, therefore, skiver welt end variances may occur. * Cora Clarke PTA - 06/05/2024 9:54 AM CDT Physical Therapy Attempted at 9:54 AM Pt unavailable secondary to bedside procedure. Will re-attempt as time permits and pt available. Cora Clarke PTA 06/05/24 9:54 AM * Ty Mcfarland MD - 06/05/2024 7:31 AM CDT Images from the original note were not included. Cardiology follow-up note-[facility] Patient was seen examined By Dr. Mcfarland 825. . Pertinent information was reviewed. Patient is lying in bed resting comfortably. Past Medical History: Diagnosis Date A-fib (CMS/HCC) (HCC) CHF (congestive heart failure) (CMS/HCC) (HCC) Diabetes mellitus (HCC) GERD (gastroesophageal reflux disease) Hypertension Intellectual disability OAB (overactive bladder) Sleep apnea Thyroid disease Past Surgical History: Procedure Laterality Date CARDIAC DEFIBRILLATOR PLACEMENT CHOLECYSTECTOMY INSERT / REPLACE / REMOVE PACEMAKER OTHER SURGICAL HISTORY 05/31/2024 CHANCE/CARDIOVERSION Medications Prior to Admission Medication Sig Dispense Refill Last Dose BASAGLAR 100 unit/mL (3 mL) pen for injection Inject 18 Units under the skin daily carvediloL (COREG) 25 mg tablet Take 1 tablet (25 mg total) by mouth 2 (two) times a day with meals dilTIAZem (CARDIZEM) 30 mg tablet Take 1 tablet (30 mg total) by mouth 2 (two) times a day docusate sodium (COLACE) 100 mg capsule Take 1 capsule (100 mg total) by mouth 2 (two) times a day Entresto 24-26 mg tablet Take 1 tablet by mouth 2 (two) times a day escitalopram (LEXAPRO) 10 mg tablet Take 1 tablet (10 mg total) by mouth daily Farxiga 10 mg tablet Take 1 tablet (10 mg total) by mouth daily furosemide (LASIX) 40 mg tablet Take 1 tablet (40 mg total) by mouth daily nortriptyline (PAMELOR) 10 mg capsule Take 1 capsule (10 mg total) by mouth daily NovoLOG 100 unit/mL (3 mL) pen for injection Inject 10 Units under the skin 3 (three) times a day with meals Plus slide potassium chloride ER 20 mEq CR tablet Take 1 tablet (20 mEq total) by mouth daily albuterol HFA (PROVENTIL HFA,VENTOLIN HFA,PROAIR HFA) 90 mcg/actuation inhaler Inhale 2 puffs every6 (six) hours as needed for wheezing cholecalciferol (VITAMIN D-3) 5,000 unit tablet Take 1 tablet (5,000 Units total) by mouth daily ferrous sulfate 325 [...] mcg total) by mouth every morning multivit wghhwalh-itde-YX-calcium (THERA-M) 9 mg iron-400 mcg tablet Take 1 tablet by mouth daily omeprazole (PriLOSEC) 20 mg capsule Take 1 capsule (20 mg total) by mouth daily Xarelto 20 mg tablet Take 1 tablet (20 mg total) by mouth daily with dinner Current Facility-Administered Medications: carvediloL (COREG) tablet 6.25 mg, 6.25 mg, oral, BID with meals (bkfst, dinner), Raji Hollis MD, 6.25 mg at 06/04/24 1706 ceFAZolin (ANCEF) 2,000 mg/100 mL in dextrose (premix) 2,000 mg, 2,000 mg, intravenous, Q8H GALINA, Mike Hollis MD, Last Rate: 200 mL/hr at 06/05/24 0533, 2,000 mg at 06/05/24 0533 dextrose oral liquid liquid 15 g, 15 g, oral, Q15 Min PRN OR dextrose (D10W) 10% bolus 250 mL, 250 mL, intravenous, Q15 Min PRN, Mike Hollis MD dilTIAZem (CARDIZEM) tablet 30 mg, 30 mg, oral, TID, Mike Hollis MD, 30 mg at 036 docusate sodium (COLACE) capsule 100 mg, 100 mg, oral, BID PRN, Mike Hollis MD, 100 mgat 06/04/24 1043 dofetilide (TIKOSYN) capsule 500 mcg, 500 mcg, oral, BID, Ty Mcfarland MD, 500 mcg at 06/04/242035 escitalopram (LEXAPRO) tablet 10 mg, 10 mg, oral, Daily, Mike Hollis MD, 10 mg at 06/04/24804 ferrous sulfate delayed release tablet 65 mg of elemental iron, 65 mg of elemental iron, oral, Daily with breakfast, Mike Hollis MD, 65 mg of elemental iron at 06/04/24 08 furosemide (LASIX) 10 mg/mL injection 40 mg, 40 mg, intravenous, BID DIURETIC, Mike Hollis MD, 40 mg at 06/04/24805 glucagon injection 1 mg, 1 mg, intramuscular, Q30 Min PRN, Mike Hollis MD HYDROcodone-acetaminophen (NORCO) 5-325 mg per tablet 1 tablet, 1 tablet, oral, QID PRN, Mike Hollis MD, 1 tablet at 06/05/24 0028 insulin glargine (LANTUS, SEMGLEE) 100 unit/mL injection 18 Units, 18 Units, subcutaneous, QAM, Elly Julian MD, 18 Units at 06/04/24805 insulin lispro (HumaLOG, ADMELOG) 100 unit/mL injection 0-4 Units, 0-4 Units, subcutaneous, Nightly, Mike Hollis MD, 1 Units at 06/01/24 2205 insulin lispro (HumaLOG, ADMELOG) 100 unit/mL injection 0-5 Units, 0-5 Units, subcutaneous, TID with meals, Mike Hollis MD, 3 Units at 06/04/24 1152 insulin lispro (HumaLOG, ADMELOG) 100 unit/mL injection 10 Units, 10 Units, subcutaneous, TID with meals, Elly Julian MD, 10 Units at 06/04/24 1706 levothyroxine (SYNTHROID) tablet 75 mcg, 75 mcg, oral, Daily - 0600, Mike Hollis MD, 75 mcg at 06/05/24 0534 nortriptyline (PAMELOR) capsule 10 mg, 10 mg, oral, Nightly, Mike Hollis MD, 10 mg at 06/04/24 203 ondansetron (ZOFRAN) injection 4 mg, 4 mg, intravenous, Q6H PRN, Mike Hollis MD pantoprazole DR (PROTONIX) extended release tablet 40 mg, 40 mg, oral, Daily, Mike Hollis MD, 40 mg at 06/04/24 08 polyethylene glycol (MIRALAX) packet 17 g, 17 g, oral, Daily PRN, Mike Hollis MD, 17 gat 06/04/24 1043 rivaroxaban (XARELTO) tablet 20 mg, 20 mg, oral, Daily with dinner, 20 mg at 06/04/24 1706 FOLLOWED BY [DISCONTINUED] rivaroxaban (XARELTO) tablet 20 mg, 20 mg, oral, Daily with dinner, Mike Hollis MD sacubitriL-valsartan (ENTRESTO) 24-26 mg tablet 1 tablet, 1 tablet, oral, BID, Mike Hollis MD, 1 tablet at 06/04/242035 sodium chloride 0.9% flush 5-10 mL, 5-10 mL, intra-catheter, Q12H GALINAWilver Sumbul, MD, 10 mL at 06/04/242039 sodium chloride 0.9% flush 5-20 mL, 5-20 mL, intra-catheter, PRN, Eben Pettit MD Allergies Allergen Reactions Sulfa (Sulfonamide Antibiotics) Social History Tobacco Use Smoking status: Never Smokeless tobacco: Never Substance and Sexual Activity Drug use: None Sexual activity: None Alcohol Use: Not At Risk (06/01/2024) AUDIT-C Frequency of Alcohol Consumption: Never Average Number of Drinks: Patient does not drink Frequency of Binge Drinking: Never No family history on file. Review of Systems: Complains of generalized fatigue continues to have some shortness of breath Denies chest pain denies significant palpitations however can tell that she is not in irregular rhythm Of the 14 review of systems unremarkable Objective Vitals: 24hr Min/Max: Temp Min: 36.6 ??C (97.8 ??F) Max: 37 ??C (98.6 ??F) Pulse Min: 82 Max: 97 BP Min: 89/51 Max: 144/92 Resp Min: 16 Max: 18 SpO2 Min: 94 % Max: 96 % Most Recent: Vitals: 06/05/24 0728 BP: 144/92 Pulse: 97 Resp: 16 Temp: 36.7 ??C (98.1 ??F) SpO2: 94% No intake/output data recorded. No intake/output data recorded. Physical Exam: General: in no apparent distress Neuro: Alert and oriented x 3, moves all extremities well HEENT: normocephalic, atraumatic, thyroid not enlarged. I do not appreciate JVD. Neck: There are nocarotid bruits. Lungs: symmetric, unlabored, clear to auscultation bilaterally Heart: irregular rate & rhythm, no murmurs, rubs, or gallops Abdomen: soft, non-tender, non-distended, bowel sounds present, systolic murmur present Extremities: no LE edema, palpable peripheral pulses BL Neurologic: No focal deficits Lab/Radiology/Diagnostic Review: Laboratory review: Lab results in the last 24 hours: Recent Results (from the past 24 hour(s)) POCT glucose Collection Time: 06/04/24 11:11 AM Result Value Ref Range Glucose, POC 274 (H) 70 - 199 mg/dL POCT glucose Collection Time: 06/04/24 4:31 PM Result Value Ref Range Glucose, POC 105 70 - 199 mg/dL POCT glucose Collection Time: 06/04/24 8:31 PM Result Value Ref Range Glucose, POC 135 70 - 199 mg/dL CBC with auto differential Collection Time: 06/05/24 12:31 AM Result Value Ref Range WBC 6.3 3.8 - 9.9 K/cumm Hgb 12.9 11.9 - 15.5 g/dL Hct 39.7 35.6 - 45.5 % Plt 371 150 - 400 K/cumm MPV 9.1 9.1 - 12.3 fL RBC 3.92 3.90 - 5.20 M/cumm MCV 101.3 (H) 81.3 - 96.4 fL MCH 32.9 27.1 - 33.3 pg MCHC 32.5 32.3 - 35.7 g/dL RDW CV 13.2 11.1 - 14.9 % RDW SD 49.4 (H) 35.7 - 48.1 fL NRBC abs 0.00 0.00 - 0.01 K/cumm Comprehensive metabolic panel Collection Time: 06/05/24 12:31 AM Result Value Ref Range Sodium 131 (L) 135 - 145 mmol/L Potassium, pl 4.8 3.3 - 4.9 mmol/L Chloride 96 (L) 97 - 110 mmol/L CO2 26 22 - 32 mmol/L Anion gap 9 2 - 15 mmol/L BUN 18 6 - 25 mg/dL Creatinine 0.68 0.60 - 1.10 mg/dL Glucose 170 70 - 199 mg/dL Calcium 9.0 8.5 - 10.3 mg/dL Bilirubin, total 0.7 0.1 - 1.2 mg/dL Protein, pl 8.0 6.5 - 8.5 g/dL Albumin 3.1 (L) 3.5 - 5.0 g/dL Alk phos 284 (H) 40 - 130 Units/L ALT 5 (L) 7 - 45 Units/L AST 19 10 - 45 Units/L Magnesium Collection Time: 06/05/24 12:31 AM Result Value Ref Range Magnesium 2.0 1.4 - 2.5 mg/dL Phosphorus Collection Time: 06/05/24 12:31 AM Result Value Ref Range Phosphorus, pl 2.7 2.3 - 4.5 mg/dL Differential, auto Collection Time: 06/05/24 12:31 AM Result Value Ref Range Neutrophil abs 4.2 1.5 - 6.5 K/cumm Imm gran abs 0.0 0.0 - 0.1 K/cumm Lymphocyte abs 1.2 0.8 - 3.3 K/cumm Monocyte abs 0.6 0.2 - 0.8 K/cumm Eosinophil abs 0.1 0.0 - 0.5 K/cumm Basophil abs 0.1 0.0 - 0.1 K/cumm Neutrophil pct 66.8 % Imm gran pct 0.5 % Lymphocyte pct 18.6 % Monocyte pct 10.1 % Eosinophil pct 2.1 % Basophil pct 1.9 % eGFR Collection Time: 06/05/24 12:31 AM Result Value Ref Range eGFR >90 >=60 mL/min/1.73 m2 POCT glucose Collection Time: 06/05/24 2:04 AM Result Value Ref Range Glucose, POC 178 70 - 199 mg/dL POCT glucose Collection Time: 06/05/24 6:28 AM Result Value Ref Range Glucose, POC 175 70 - 199 mg/dL Lipids: No results found for: CHOL , CHLPL , HDL , LDLCALC , TRIG , CHOLHDL and Cardiac Enzymes: No results found for: CKTOTAL , CKMB , CKMBINDEX , TROPONINT ECG: Results for orders placed during the hospital encounter of 05/29/24 ECG 12 lead Narrative Vent Rate: 86 bpm RR Interval: 697 msec HI Interval: 0 msec QRS Duration: 157 msec QT Interval: 470 msec QTC Interval: 513 msec P-R-T [place]: 0 - 38 - 88 degrees IMPRESSION: ATRIAL FIBRILLATION WITH ABERRANT CONDUCTION OR VENTRICULAR PREMATURE COMPLEXES LEFT BUNDLE BRANCH BLOCK [120+ ms QRS DURATION, 80+ ms Q/S IN V1/V2, 85+ ms R IN I/aVL/V5/V6] ABNORMAL ECG Compared to prior EKG, ventricular pacing is no longer present Electronically Signed By: Antonio Carlos MD Blood culture Blood Order: [id number] Collected 05/30/2024 04:28 Status: Final result Visible to patient: No (inaccessible in MyChart) Specimen Information: Blood 0 Result Notes Component Report Final Report: No growth Comment: Testing performed by: [facility], [address] [place]., [address] Narrative Performed by: From a different site than #1. Collection->Peripheral 1. Blood cultures are incubated for 4 days on a continuously monitored blood culture system. The first report of a negative culture is issued within 24 hours of receipt of the specimen in the laboratory. 2. Positive culture results are reported as soon as they are detected. 3. The most important factor for detection of microbes [...] mL of blood, divided equally between aerobic andanaerobic blood culture bottles, is recommended for each blood culture set. 4. For blood cultures with Gram-positive cocci, a rapid molecular test for organism identification may be performed using the [employer] Gram-Positive Blood Culture Assay. This assay detects microbial DNA in positive blood culture broth via hybridization of target DNA to capture oligonucleotides on a microarray. This assay has been cleared by the [place] Food and Drug Administration and its performance characteristics have been verified by the [facility]. 5. For questions about this culture, contact the Microbiology Laboratory at [phone]. Interpretive data was last revised on 2020. Specimen Collected: 05/30/24 04:28 Last Resulted: 06/03/24 12:00 ASSESSMENT/PLAN: 1. Questionable endocarditis -no vegetations seen on CHANCE -continue therapy per Infectious Disease until 06-09-24 Atrial fibrillation -CHANCE discovered left atrial appendage clot therefore no cardioversion was attempted -Tikosyn loading has been started, QTC is actually shorter than prior to starting the Tikosyn -she remains in AFib on telemetry and on exam with fairly well-controlled rate Dislodged catheter -in pulmonary artery -seen on both CT scan and CHANCE Acute on chronic congestive heart failure -clinically compensated at this time -EF 30% by echo Neck pain -source unclear Diabetes type 2 -per hospitalist Hypothyroid -treated In future would benefit from upgrade of dual-chamber ICD to Bi V ICD but that should not be done atleast for 30 days after antibiotics are finished * Ty Mcfarland MD - 06/05/2024 7:30 AM CDT Pertinent info was reviewed. Full cardiology note to follow * Elly Julian MD - 06/04/2024 8:37 PM CDT Daily Progress Chief complaint:Abdominal pain Subjective: Patient lying in bed, states she feels better, ID has changed antibiotic duration to 06/22, requested PICC and SW consult-may need SNF if family not comfortable with antibiotic administration at home, d/w onsite case manager Interval History: As per HPI-Ms Lei Rodriguez is a 63 y.o. female with history of afib, CHF, DM, GERD,HTN, Intellectual disability, OAB, JOSE, thyroid disease, AICD, PPM, Cholecystectomy. Presented to [facility] on with nausea, vomiting, diarrhea, and abdominal pain. Livesat home with her sister. Limited historian due to intellectual disability. She was ultimately found to have endocarditis. Persistent positive blood cultures for staph aureus. ED put on vanc, zosyn, and IVF initially Now on Ancef at transfer Currently complains of right neck pain radiating to her right ear. Pain also on right mastoid. No hearing change, tinnitus, or hearing loss. She has been a little SOB on laying down for the past few days. No chest pain, pressure, or discomfort. Admit eval: Hyponatremia to 122 17% PMN with normal WBC. Plt 109 Cr 1 --> 0.7 Bili 2.4 AST 127 ALT 85 Alk selvin 159 CXR mild edema with trace pleural effuion and cardiomegaly CT a/p: Small hiatal hernia UA without UTI. 3+ glucose, 1+ ketones, 1+ blood. 0-2 RBC and 0-5 WBC. Negative FLU, RSV, COVID EKbpm afib LBBB / blood cx positive staph aureus Echo: EF 40-45% Mod LAE. JOSEPH TV vegetation at 2mm not clearly involving the AICD. CHANCE: LAE. Small central MR. 2mm TV vegetation mobile and prolapses into the right atrium in systole Most recent labs 05/20 INR 3.9 PTT 50 05/28 WBC 13.3, Hgb 12.4, PLT 258, 74% PMN. 05/28: NA 131. Cr 0.5 AST 45 ALT 21 AP 434 CRP elevated 31.1 OSH imaging (final reads below): C spine 05/21 No acute fx or traumatic malalignment. No severe central canal or neural foraminal narrowing HCT 05/21 No acute intracranial process CXR 05/21 Mild pulmonary edema and trace pleural effusion. Cardiomegaly CT abdomen/pelvis 05/21 Small sliding hiatal hernia Abdominal ultrasound Normal RUQ u/S post luz 05-30:Patient sitting up in a chair, d/w Dr. Mcfarland, requested CT chest which shows possible catheter or wire fragment, CTS to evaluate in a.m., advanced diet 05-31:Patient lying in bed, d/w Dr. Mcfarland-cleared from cards standpoint, EKG stable on Tikosyn-continue current dose as per EP, d/w Dr. Alejandra CTS -no surgical intervention planned for small wire/fragment in pulm artery, d/w Dr. Abernathy-IR retrieval not possible, d/w ID-await final antibiotic recs 06-01:Patient lying in bed, d/w ID, attempt to get culture results from Ernie as per ID, CT abdomen/pelvis no evidence of source of infection, still has volume overload, continue IV lasix 8-24:D/w sister Dilia, no new complaints, d/w SW 06-03:Patient lying in bed, smiling, in better spirits today, discussed plan with her and with RN, no new issues Review of Systems Gen: No fever, No chills, CV: No chest pain Resp: No SOB GI: No nausea, No vomiting, abdominal pain controlled Objective: Vitals: 24hr Min/Max: Temp Min: 36.5 ??C (97.7 ??F) Max: 37 ??C (98.6 ??F) Pulse Min: 77 Max: 88 BP Min: 89/51 Max: 98/62 Resp Min: 16 Max: 22 SpO2 Min: 94 % Max: 97 % Most Recent : Vitals: 06/04/24 1100 06/04/24 1600 06/04/24 1640 06/04/241958 BP: 90/58 (!) 89/51 92/52 98/62 BP Location: Left arm Right arm Right arm Right arm Pulse: 82 88 Resp: 18 16 Temp: 36.7 ??C (98.1 ??F) 37 ??C (98.6 ??F) 36.8 ??C (98.3 ??F) TempSrc: Oral Oral SpO2: 96% 94% Weight: Height: Physical Exam: Gen:Well built female Lungs:Symmetrical breath sounds b/l Heart:S1,S2 heard Abdomen:Soft, NT, BS+ Extremities:No edema b/l LE Neuro:Awake, alert, answers questions Lab/Radiology/Diagnostic Review: Recent Results (from the past 24 hour(s)) CBC with auto differential Collection Time: 06/04/24 4:53 AM Result Value Ref Range WBC 6.2 3.8 - 9.9 K/cumm Hgb 12.2 11.9 - 15.5 g/dL Hct 38.0 35.6 - 45.5 % Plt 332 150 - 400 K/cumm MPV 9.0 (L) 9.1 - 12.3 fL RBC 3.73 (L) 3.90 - 5.20 M/cumm MCV 101.9 (H) 81.3 - 96.4 fL MCH 32.7 27.1 - 33.3 pg MCHC 32.1 (L) 32.3 - 35.7 g/dL RDW CV 13.4 11.1 - 14.9 % RDW SD 49.9 (H) 35.7 - 48.1 fL NRBC abs 0.00 0.00 - 0.01 K/cumm Comprehensive metabolic panel Collection Time: 06/04/24 4:53 AM Result Value Ref Range Sodium 131 (L) 135 - 145 mmol/L Potassium, pl 4.2 3.3 - 4.9 mmol/L Chloride 95 (L) 97 - 110 mmol/L CO2 28 22 - 32 mmol/L Anion gap 8 2 - 15 mmol/L BUN 18 6 - 25 mg/dL Creatinine 0.72 0.60 - 1.10 mg/dL Glucose 104 70 - 199 mg/dL Calcium 8.7 8.5 - 10.3 mg/dL Bilirubin, total 0.6 0.1 - 1.2 mg/dL Protein, pl 7.6 6.5 - 8.5 g/dL Albumin 3.1 (L) 3.5 - 5.0 g/dL Alk phos 272 (H) 40 - 130 Units/L ALT <5 (L) 7 - 45 Units/L AST 20 10 - 45 Units/L Magnesium Collection Time: 06/04/24 4:53 AM Result Value Ref Range Magnesium 2.1 1.4 - 2.5 mg/dL Phosphorus Collection Time: 06/04/24 4:53 AM Result Value Ref Range Phosphorus, pl 3.0 2.3 - 4.5 mg/dL Differential, auto Collection Time: 06/04/24 4:53 AM Result Value Ref Range Neutrophil abs 4.0 1.5 - 6.5 K/cumm Imm gran abs 0.1 0.0 - 0.1 K/cumm Lymphocyte abs 1.3 0.8 - 3.3 K/cumm Monocyte abs 0.6 0.2 - 0.8 K/cumm Eosinophil abs 0.1 0.0 - 0.5 K/cumm Basophil abs 0.1 0.0 - 0.1 K/cumm Neutrophil pct 64.4 % Imm gran pct 0.8 % Lymphocyte pct 21.7 % Monocyte pct 9.5 % Eosinophil pct 2.1 % Basophil pct 1.5 % eGFR Collection Time: 06/04/24 4:53 AM Result Value Ref Range eGFR >90 >=60 mL/min/1.73 m2 POCT glucose Collection Time: 06/04/24 6:25 AM Result Value Ref Range Glucose, POC 118 70 - 199 mg/dL POCT glucose Collection Time: 06/04/24 11:11 AM Result Value Ref Range Glucose, POC 274 (H) 70 - 199 mg/dL POCT glucose Collection Time: 06/04/24 4:31 PM Result Value Ref Range Glucose, POC 105 70 - 199 mg/dL POCT glucose Collection Time: 06/04/24 8:31 PM Result Value Ref Range Glucose, POC 135 70 - 199 mg/dL ECG 12 lead Result Date: 05/30/2024 Narrative: Vent Rate: 109 bpm RR Interval: 548 msec HI Interval: 0 msec QRS Duration: 149 msec QT Interval: 398 msec QTC Interval: 462 msec P-R-T [place]: 0 - 96 - 89 degrees IMPRESSION: ATRIAL FIBRILLATION WITH RAPID VENTRICULAR RESPONSE BORDERLINE RIGHT AXIS DEVIATION [QRS AXIS > 90] INTRAVENTRICULAR CONDUCTION DELAY [130+ ms QRS DURATION] ABNORMAL ECG Unchanged compared to an EKG done earlier on May 30, 2024 Electronically Signed By: Dr. Shiloh Muhammad [facility] CT Chest WO Contrast Result Date: 05/30/2024 [...] Complete W Doppler/CF Result Date: 05/30/2024 Narrative: [place] [address] Echocardiogram Report Patient Name: LEI RODRIGUEZ V : 1960 Study Date: 05/30/2024 7:47:08 AM Gender: F Tech: GUILHERME Location: [place] [address] Ref Provider: TY MCFARLAND Height(Cm): 165 BSA: [...] 33.1 percent AV Mean PG 3 mmHg [id number] 5.71 [ 3.80 - 5.20 ] cm [...] Trivial pericardial effusion. Electronically Signed By: Coleen Kwok DO, RUBIO, ANDREE, MELISSA 2024-05-30 09:18:05 CDT [...] in the medical record on 05/30/2024 at [facility]. Electronically signed by: Abilio Post M.D. ECG 12 lead Result Date: 05/30/2024 Narrative: Vent Rate: 86 bpm RR Interval: 697 msec HI Interval: 0 msec QRS Duration: 145 msec QT Interval: 438 msec QTC Interval: 481 msec P-R-T [place]: 0 - 101 - 95 degrees IMPRESSION: ATRIAL FIBRILLATION RIGHT AXIS DEVIATION [QRS AXIS > 100] INTRAVENTRICULAR CONDUCTION DELAY [130+ ms QRS DURATION] ABNORMAL ECG Unchanged compared to 05/29/2021 Electronically Signed By: Dr. Shiloh Muhammad [facility] CT Chest PE (CTA) W Contrast Result Date: 05/30/2024 Narrative: EXAMINATION: CT CHEST PE (CTA) W CONTRAST HISTORY: Chest pain ORDER DATE: 05/30/2024 3:20AM TECHNIQUE: CT chest images were acquired using a chest angiographic protocol with 3-D imaging optimized for PE is obtained [id number] mL of Optiray 350 IV. 2D Coronal [...] findings as described above. Stat report by [facility] . Electronically signed by: Andrea Abernathy M.D. [...] and partially calcified bulging disc contributing to [id number] central spinal stenosis. Disc osteophyte complex also contributing to [id number]-[id number] central spinal stenosis at C4-C5 level. No significant disc bulge or herniation. No severe spinal canal stenosis. Uncovertebral joint hypertrophy contributing to multilevel bilateral neural foraminal stenosis. Lungs: Lung apices are normal. Soft tissues: Unremarkable. Impression: No acute cervical spine injury. Stat report by [facility] Stat report by [facility] Electronically signed by: Andrea Abernathy M.D. CT [...] No acute intracranial findings. Stat report by [facility] Electronically signed by: Andrea Abernathy M.D. ECG 12 lead Result Date: 05/30/2024 Narrative: Vent Rate: 93 bpm RR Interval: 645 msec HI Interval: 0 msec QRS Duration: 97 msec QT Interval: 197 msec QTC Interval: 247 msec P-R-T [place]: 0 - 118 - 0 degrees IMPRESSION: [...] Electronically Signed By: Antonio Carlos MD Assessment/Plan Endocarditis: Continue ancef till 06/22 as per ID. Blood cultures ngtd. ID and Cardiology Consulted.OSH blood cx-records requested. Telemetry. D/w Dr. Mcfarland/ CTS/IR-no further evaluation for removal of possible wire fragment /catheter in pulm artery on CT chest as risks outweigh benefits. Now that antibiotic duration has been extended beyond 8-30 requested PICC line, will need SNF if family uncomfortable with antibiotic administration at home. Acute on chronic Systolic CHF Troponins flat. Echo shows EF 30%. On IV lasix. Evidence of volume overload on CT chest. On Entresto, coreg. Neck pain Seem to be MSK. CT head/C spine no acute pathology. Flexeril x1 8-24. Chronic afib Continue coreg, dilt, and Xarelto, Tikosyn as per Cards DM Some elevated blood sugars on Lantus and SSI. Added scheduled Humalog .Increased lantus dose and scheduled Humalog dose on 05-31 as blood sugars elevated. Hypothyroidism On Synthroid JOSE Apparently was not using her NPPV at OSH, Defer BMI 47.22 DVT ppx: Xarelto MDM:Low Disposition:Depending on family-home with antibiotics vs SNF as antibiotic duration extended as perID recs Expected Date of Discharge: Depending on above Barriers to Discharge:Completion of IV antibiotics These fluid and electrolyte abnormalities are being treated, evaluated or monitored: Hyperkalemia-resolved Hyponatremia-monitor * Cora Clarke PTA - 06/04/2024 4:04 PM CDT Physical Therapy PT PROGRESS NOTE PATIENT'S NAME:Lei Rodriguez :1960 AGE:63 y.o. ROOM:[place] [address] Past Medical History: Diagnosis Date A-fib ([facility]) ([facility] CHF (congestive heart failure) ([facility]) ([facility]) Diabetes mellitus ([facility]) GERD (gastroesophageal reflux disease) Hypertension Intellectual disability OAB (overactive bladder) Sleep apnea Thyroid disease Past Surgical History: Procedure Laterality Date CARDIAC DEFIBRILLATOR PLACEMENT CHOLECYSTECTOMY INSERT / REPLACE / REMOVE PACEMAKER OTHER SURGICAL HISTORY 05/31/2024 CHANCE/CARDIOVERSION Patient Active Problem List Diagnosis Endocarditis SOB (shortness of breath) Acute on chronic systolic congestive heart failure ([facility]) ([facility]) Neck pain Hyponatremia Chronic a-fib ([facility]) ([facility]) Type 2 diabetes mellitus, with long-term current use of insulin ([facility]) Hypothyroid JOSE (obstructive sleep apnea) Diabetes mellitus with hyperglycemia ([facility]) ([facility]) TIME IN: 1605 TIME OUT: 1620 SUBJECTIVE Oh ok MENTAL STATUS/ORIENTATION: oriented to self (name and birthday) when prompted for month pt replied with Tuesday and 2023 ; oriented to location, hospital PAIN: Pre-therapy pain level: 0/10 Pain location: n/a Pain intervention: n/a Post-therapy pain level/response to intervention: 0/10 OBJECTIVE PRECAUTIONS: fall and bed / chair alarm APPEARANCE/POSTURE: supine, bed alarm activated, call light in reach, pt speaking with someone on speaker phone VITAL SIGNS: Resting BP: 100/68 Post-activity BP: 122/80 Resting heart rate: 86 bpm Post-activity heart rate: 101 bpm MOBILITY DOCUMENTATION: Bed Mobility/Transfers: Supine to sit : MIN A; warranted due to poor sequencing and ineffective body positioning; completedwith HOB at 0 deg and no rail as pt reported having standard bed at home Sit<> stand : SBA; warranted due to poor safety and external verbal correction for appropriate hand placement Pivot: SBA; poor safety with pt pushing AD away and continuing transfer without UE support to reduce fall risk Sit to supine : SBA Gait: 4-5 steps with personal walker Noted deficits: required external instruction for directional changes, inadequate foot clearance, and ineffective amy APPEARANCE/POSTURE (end of session): appearance otherwise unchanged from PT arrival in room EDUCATION:bed mobility , therapeutic activity, functional transfer training, gait training , endurance training, safety , and durable medical equipment education RESPONSE TO EDUCATION: needs reinforcement and verbalizes understanding ASSESSMENT Activity tolerance/response to P.T.: Fair tolerance with all outlined skilled interventions. Communication completed with Veena DASILVA Barriers to learning: Physical Barriers to discharge: Impulsivity, Limited safety awareness, Limited insight into deficits, Decreased endurance, Long standing deficits, and Medical complications Patient continues progressing toward previously set goals which remain appropriate at this time. PLAN PT Discharge Recommendations this date: PT Recommendation/Plan: Home with family, Home with 24 hour supervision, Home Health PT PT Frequency during current admission: Daily, 3-5x/wk CARE PLAN Multi-Disciplinary Problems (from Physical Therapy) Active Problems Problem: PT [facility] Start Date: 06/02/24 Goal Start Date Expected End Date End Date PT [facility] 1 06/02/24 06/09/24 -- Goal Details: Perform bed mobility with modified indep assist. Progressing Goal Start Date Expected End Date End Date PT [facility] 2 06/02/24 06/09/24 -- Goal Details: Perform functional transfers with modified indep assist. Progressing Goal Start Date Expected End Date End Date PT [facility] 3 06/02/24 06/09/24 -- Goal Details: Gait 150' with WW with modified indep assist. Progressing Goal Start Date Expected End Date End Date PT [facility] 4 06/02/24 06/09/24 -- Goal Details: Perform 1 step with modified indep assist. Progressing Goal Start Date Expected End Date End Date PT [facility] - Misc 5 06/02/24 06/09/24 -- Goal Details: Perform LE HEP with SBA Progressing If this is the last note, please consider this the discharge summary. Cosigned by Nicolás Hurt, PT at 06/07/2024 2:59 PM CDT * Eben Pettit MD - 06/04/2024 1:38 PM CDT Infectious Disease Consult Consulting Physician: Eben Pettit MD. Reason for consult: MSSA bacteremia/Suspected endocarditis tricuspid valve. Review of systems/interval history. Afebrile Normal WBC count Sitting up in chair No new complaints. blood cultures no growth so far from 06/03 Objective: Vitals: 24hr Min/Max: Temp Min: 36.5 ??C (97.7 ??F) Max: 36.8 ??C (98.2 ??F) Pulse Min: 72 Max: 86 BP Min: 90/58 Max: 120/63 Resp Min: 18 Max: 24 SpO2 Min: 95 % Max: 98 % Most Recent : Vitals: 06/04/24 0000 06/04/24 0400 06/04/24 0507 06/04/24 1100 BP: 90/60 92/55 90/58 BP Location: Right arm Right arm Left arm Patient Position: Pulse: 78 86 82 Resp: 20 20 18 Temp: 36.6 ??C (97.9 ??F) 36.6 ??C (97.8 ??F) 36.7 ??C (98.1 ??F) TempSrc: Oral Oral SpO2: 96% 97% 96% Weight: 117.6 kg (259 lb 4.2 oz) Height: Physical Exam: General appearance: alert, cooperative, no distress HEENT: (-)icterus, Oropharnyx is normal, NCAT Neck: No palpable LN Lungs: breath sounds normal and symmetric; minimal respiratory effort, no r/w/c Heart: regular rhythm, normal S1 and S2, no m/r/g Abdomen: soft without mass, non-tender, +bowel sounds, no HSM Extremities/Skin: no gross deformities, FROM, no new rashes, no ulcerations Vascular: no Edema, pulses present bilaterally Neuro: No focal deficits Psych: Appropriate mood and affect , intellectual disability Labs Reviewed. Recent Labs Lab Units 06/04/24 0453 06/03/24 0305 06/02/24 0254 WBC K/cumm 6.2 6.0 5.6 HEMOGLOBIN g/dL 12.2 11.8* 11.5* HEMATOCRIT % 38.0 37.6 35.9 PLATELETS K/cumm 332 374 351 Recent Labs Lab Units 06/04/24 0453 06/03/24 0305 06/02/24 0254 BUN SERUM mg/dL 18 20 14 CREATININE mg/dL 0.72 0.80 0.69 Lab Results Component Value Date ALT <5 (L) 06/04/2024 AST 20 06/04/2024 ALKPHOS 272 (H) 06/04/2024 BILITOT 0.6 06/04/2024 Cultures Blood cultures 05/30 no growth so far Outside hospital 01/11 blood cultures reported to be positive for Staph aureus MSSA. From 05/21 and 05/22. Imaging [facility] echo reported as Tricuspid valve vegetation. CT chest noncontrast. 05/30 IMPRESSION: 1. Redemonstrated curvilinear radiopaque density extending from the proximal right lower lobe pulmonary artery into a subsegmental lateral basilar branch favors a catheter or wire fragment. 2. Findings most suggestive of heart failure with cardiomegaly, small volume pericardial effusion, and small bilateral pleural effusions and mild pulmonary edema. CT chest PE protocol 05/30 IMPRESSION: 1. Motion degraded evaluation of the pulmonary [...] LFTs. 5. Additional findings as described above. Assessment: MSSA bacteremia ? Suspected tricuspid valve endocarditis Documented at outside hospital, unknown date so far will follow-up with [facility]. 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. She underwent CHANCE, with no visible valve vegetation. Repeat blood cultures 05/30 remain no growth so far. She has AICD in place. ? Dislodged catheter/lead.. PA Atrial fibrillation CHF GERD Hypertension Obstructive sleep apnea Thyroid disease Intellectual disability Plan: Discussed with Dr. Neli Hutchinson, no vegetation seen on tricuspid valve. There is a dislodged lead/catheter, In Pulmonary artery, which is also reported in CT. There was a clot in MAULIK, probably an appendage clot, hence synchronized Cardioversion was canceled. Continue on Ancef for now Follow up on blood cultures. Monitor fever curve and WBC count. Called microlab [facility] blood cultures 05/25 NG. Apparently blood cultures were positive for Staph aureus 05/21 and 05/22 requested fax from [facility]. They could not tell methe susceptibilities. For H&P reported oxacillin susceptible Staph aureus. Blood cultures were negative at outside hospital [facility] 05[facility] abdomen and pelvis With no significant infectious findings Continue Ancef, 4 weeks total due to presence of ICD, end date 06/22 PICC line is ordered. Will follow. Eben Pettit MD 06/04/2024 [place] [facility] Office: [phone] Fax: [phone] Voice recognition software was used to complete this document, therefore, skiver welt end variances may occur. * Maria Luisa Sierra, OT - 06/04/2024 11:13 AM CDT Occupational Therapy NOTE / SESSION TYPE: Initial Evaluation Patient Name: Lei Rodriguez Date of : 1960 Age / Sex: 63 y.o. / female Room: [facility]/[id number] Admit Date: 05/29/2024 Date of Service: 06/04/24 Time In: 1112 Time Out: 1135 Primary Diagnosis: Endocarditis HPI: Lei Rodriguez is a 63 y.o. female who presents from [facility] 05/29/2024 with abdominal pain . Initially she presented to [facility] 05/21/24 with N/V , diarrhea, abdominal pain. Workup revealed questionable endocarditis, hyponatremia, acute on chronic CHF with EF 30% , neck pain, a-fib with left atrial appendage clot finding and therefore no cardioversion attempted, dislodged catheter in pulmonary artery - no intervention planned - risks outweight benefits for treatment. Notable History: a-fib, CHF, DM, GERD, HTN, intellectual disability, JOSE, overactive bladder, thyroid disease, AICD, PPM Past Medical History: Diagnosis Date A-fib ([facility]) ([facility]) CHF (congestive heart failure) ([facility]) ([facility]) Diabetes mellitus ([facility]) GERD (gastroesophageal reflux disease) Hypertension Intellectual disability OAB (overactive bladder) Sleep apnea Thyroid disease Past Surgical History: Procedure Laterality Date CARDIAC DEFIBRILLATOR PLACEMENT CHOLECYSTECTOMY INSERT / REPLACE / REMOVE PACEMAKER OTHER SURGICAL HISTORY 05/31/2024 CHANCE/CARDIOVERSION Precautions (Including Weight-Bearing): Fall risk and Bed / chair alarm Caregiver Present for Session (Yes or No): No SUBJECTIVE: Patient Comment: I have 2 cats at home Pain Assessment: Pre-therapy pain level: 10 / 10 Pain location: chronic neck pain Pain intervention(s): Repositioned and Pain medication administered prior to session Post-therapy pain level: 10 / 10 Pain scale used: 0-10 SCALE Prior Living Environment and Level of Function: Information taken from PT initial evaluation and confirmed with patient this date Lives with: alone Receives assistance from / other social supports available: sister checks up on her, nephew lives next door Living environment (Type of residence / Entrance accessibility): 1-story house/ trailer, number of outside stairs: 1 Bathroom location and setup: Tub/shower combination Prior level of function: Indep with ADLs, indep with mobility using WW, does minimal cooking Sister performs neurology epilepsy physician and drives patient. Sister assists with finances. [...] upon OT arrival: Patient Sitting in bedside chair Presentation upon OT departure: Patient Sitting in bedside chair Bed / chair alarm in place and activated upon OT departure: Yes Call light within arms reach of patient at end of session: Yes Completed patient handoff and notified MUD GRINDER / RN, name: Veena, of patient's location and functional status upon completion of session Vital Signs: No symptoms or c/o distress Cognitive / Perceptual Assessment: A&O x4, follows 1 step commands 100%, pleasant and cooperative throughout UE ROM / Strength / Coordination: (A)ROM - Right: WFL Strength - Right: 4/5 (A)ROM - Left: WFL Strength - Left: 4/5 Carpet Layer Strength (Right): good Carpet Layer Strength (Left): good Right Serial Opposition: Intact Left Serial Opposition: Intact Balance: Static sitting balance: good Dynamic sitting balance: good Static standing balance: good Dynamic standing balance: good- Mobility / Transfers: Bed mobility (Components & Assistance): NT due to patient requesting to remain up in chair at end of session Transfer(s): SPV sit <> stand using 3 wheeled walker SPV functional mobility from chair <> bathroom using 3 wheeled walker CGA sit <> stand from toilet using grab bars Activities of Daily Living / Living Skills: UE dressing: Patient completed upper body dressing of Hospital gown as robe while Sitting in bedside chair / recliner with overall Minimal assistance. Patient required assistance for threading RUE and threading LUE. Lower Body Dressing: Patient completed simulated LB dressing while sitting/standing at chair with SPV for safety Footwear: Patient completed footwear of Footie(s) while Sitting in bedside chair / recliner with overall Supervision assistance. Patient required assistance for safety Other: Grooming: Patient completed grooming of combing hair while Sitting in bedside chair / recliner with overall Moderate assistance. Patient required assistance for combing hair ASSESSMENT: Rehab Potential (Prognosis): good Problem List: Patient has impairments including: Decreased mobility, Decreased endurance, Long-standing deficits, Decreased ADL independence, and Pain. Barriers to Discharge: Medical complications PLAN: OT Discharge Recommendations this date: OT RECOMMENDATIONS: OT Recommendation: Home with 24 hour supervision, Home Health OT Patient at risk for: Patient at high risk for: Falls, Injury due to reduced functional status, Injury due to balance deficits, Injury at home as patient has not returned to prior level of function, Mismanagement of medications Justification of discharge recommendations flow sheet completed: Yes Frequency of therapy:OT Frequency during current admission: 3-5x/wk Intervention / Education needs: ADL training, Compensatory ADL strategies, Adaptive equipment education, Durable medical equipment education, Balance activities, Functional transfer training, Safety education, and UE home exercise program education Education provided: Patient has been educated on Role of OT, OT plan of care, ADL training, Functional transfer training, Balance training, and Safety education. Individual(s) verbalized understanding and needs ongoing reinforcement. Short Term Goals / Care Plan: Multi-Disciplinary Problems (from Occupational Therapy) Active Problems Problem: OT Misc Start Date: 06/04/24 Goal Start Date Expected End Date End Date OT [facility] 1 06/04/24 06/11/24 -- Goal Details: Patient will complete functional transfers using least restrictive device with modified independence 1 time. Goal Start Date Expected End Date End Date OT [facility] 2 06/04/24 06/11/24 -- Goal Details: Patient will complete all components of toileting (toileting hygiene and clothing management) with modified independence 1 time. Goal Start Date Expected End Date End Date OT [facility] 3 06/04/24 06/11/24 -- Goal Details: Patient will complete UB dressing, LB dressing, and footwear with modified independence 1 time. Goal Start Date Expected End Date End Date OT [facility] 4 06/04/24 06/11/24 -- Goal Details: Patient will complete HEP to improve BUE strength/endurance and ADL participation with min verbal cues 1 time. Goal Start Date Expected End Date End Date OT [facility] 5 06/04/24 06/11/24 -- Goal Details: Patient will complete functional/meaningful task in standing for 3-5 minutes with modified independence for balance one time. If this is the last note, consider this the discharge summary Maria Luisa Sierra OT 06/04/24 * Ty Mcfarland MD - 06/04/2024 6:36 AM CDT EP/cardiology follow-up note-SL HV Note summary In future would benefit from upgrade of dual-chamber ICD to Bi V ICD but that should not be done atleast for 30 days after antibiotics are finished Past Medical History: Diagnosis Date A-fib (CMS/HCC) (HCC) CHF (congestive heart failure) ([facility]) ([facility]) Diabetes mellitus ([facility]) GERD (gastroesophageal reflux disease) Hypertension Intellectual disability OAB (overactive bladder) Sleep apnea Thyroid disease Past Surgical History: Procedure Laterality Date CARDIAC DEFIBRILLATOR PLACEMENT CHOLECYSTECTOMY INSERT / REPLACE / REMOVE PACEMAKER OTHER SURGICAL HISTORY 05/31/2024 CHANCE/CARDIOVERSION Medications Prior to Admission Medication Sig Dispense Refill Last Dose BASAGLAR 100 unit/mL (3 mL) pen for injection Inject 18 Units under the skin daily carvediloL (COREG) 25 mg tablet Take 1 tablet (25 mg total) by mouth 2 (two) times a day with meals dilTIAZem (CARDIZEM) 30 mg tablet Take 1 tablet (30 mg total) by mouth 2 (two) times a day docusate sodium (COLACE) 100 mg capsule Take 1 capsule (100 mg total) by mouth 2 (two) times a day Entresto 24-26 mg tablet Take 1 tablet by mouth 2 (two) times a day escitalopram (LEXAPRO) 10 mg tablet Take 1 tablet (10 mg total) by mouth daily Farxiga 10 mg tablet Take 1 tablet (10 mg total) by mouth daily furosemide (LASIX) 40 mg tablet Take 1 tablet (40 mg total) by mouth daily nortriptyline (PAMELOR) 10 mg capsule Take 1 capsule (10 mg total) by mouth daily NovoLOG 100 unit/mL (3 mL) pen for injection Inject 10 Units under the skin 3 (three) times a day with meals Plus slide potassium chloride ER 20 mEq CR tablet Take 1 tablet (20 mEq total) by mouth daily albuterol HFA (PROVENTIL HFA,VENTOLIN HFA,PROAIR HFA) 90 mcg/actuation inhaler Inhale 2 puffs every6 (six) hours as needed for wheezing cholecalciferol (VITAMIN D-3) 5,000 unit tablet Take 1 tablet (5,000 Units total) by mouth daily ferrous sulfate 325 [...] mcg total) by mouth every morning multivit evjvrefo-xyji-TA-calcium (THERA-M) 9 mg iron-400 mcg tablet Take 1 tablet by mouth daily omeprazole (PriLOSEC) 20 mg capsule Take 1 capsule (20 mg total) by mouth daily Xarelto 20 mg tablet Take 1 tablet (20 mg total) by mouth daily with dinner Current Facility-Administered Medications: carvediloL (COREG) tablet 6.25 mg, 6.25 mg, oral, BID with meals (bkfst, dinner), Raji Hollis MD, 6.25 mg at 06/03/24 1659 ceFAZolin (ANCEF) 2,000 mg/100 mL in dextrose (premix) 2,000 mg, 2,000 mg, intravenous, Q8H GALINA, Mike Hollis MD, Last Rate: 200 mL/hr at 06/04/24 0506, 2,000 mg at 06/04/24 0506 dextrose oral liquid liquid 15 g, 15 g, oral, Q15 Min PRN OR dextrose (D10W) 10% bolus 250 mL, 250 mL, intravenous, Q15 Min PRN, Mike Hollis MD dilTIAZem (CARDIZEM) tablet 30 mg, 30 mg, oral, TID, Mike Hollis MD, 30 mg at docusate sodium (COLACE) capsule 100 mg, 100 mg, oral, BID PRN, Mike Hollis MD dofetilide (TIKOSYN) capsule 500 mcg, 500 mcg, oral, BID, Ty Mcfarland MD, 500 mcg at 06/03/242035 escitalopram (LEXAPRO) tablet 10 mg, 10 mg, oral, Daily, Mike Hollis MD, 10 mg at 06/03/24 07 ferrous sulfate delayed release tablet 65 mg of elemental iron, 65 mg of elemental iron, oral, Daily with breakfast, Mike Hollis MD, 65 mg of elemental iron at 06/03/24 07 furosemide (LASIX) 10 mg/mL injection 40 mg, 40 mg, intravenous, BID DIURETIC, Mike Hollis MD, 40 mg at 06/03/24 1614 glucagon injection 1 mg, 1 mg, intramuscular, Q30 Min PRN, Mike Hollis MD HYDROcodone-acetaminophen (NORCO) 5-325 mg per tablet 1 tablet, 1 tablet, oral, QID PRN, Mike Hollis MD, 1 tablet at 06/03/24 1751 insulin glargine (LANTUS, SEMGLEE) 100 unit/mL injection 18 Units, 18 Units, subcutaneous, QAM, Elly Julian MD, 18 Units at 06/03/24 0743 insulin lispro (HumaLOG, ADMELOG) 100 unit/mL injection 0-4 Units, 0-4 Units, subcutaneous, Nightly, Mike Hollis MD, 1 Units at 06/01/24 2205 insulin lispro (HumaLOG, ADMELOG) 100 unit/mL injection 0-5 Units, 0-5 Units, subcutaneous, TID with meals, Mike Hollis MD, 1 Units at 06/02/24 1240 insulin lispro (HumaLOG, ADMELOG) 100 unit/mL injection 10 Units, 10 Units, subcutaneous, TID with meals, Elly Julian MD, 10 Units at 06/03/24 165 levothyroxine (SYNTHROID) tablet 75 mcg, 75 mcg, oral, Daily - 0600, Mike Hollis MD, 75 mcg at 06/04/24 0506 nortriptyline (PAMELOR) capsule 10 mg, 10 mg, oral, Nightly, Mike Hollis MD, 10 mg at 06/03/242035 ondansetron (ZOFRAN) injection 4 mg, 4 mg, intravenous, Q6H PRN, Mike Hollis MD pantoprazole DR (PROTONIX) extended release tablet 40 mg, 40 mg, oral, Daily, Mike Hollis MD, 40 mg at 06/03/24 07 polyethylene glycol (MIRALAX) packet 17 g, 17 g, oral, Daily PRN, Mike Hollis MD rivaroxaban (XARELTO) tablet 20 mg, 20 mg, oral, Daily with dinner, 20 mg at 06/03/24 165 FOLLOWED BY [DISCONTINUED] rivaroxaban (XARELTO) tablet 20 mg, 20 mg, oral, Daily with dinner, Mike Hollis MD sacubitriL-valsartan (ENTRESTO) 24-26 mg tablet 1 tablet, 1 tablet, oral, BID, Mike Hollis MD, 1 tablet at 06/03/242035 sodium chloride 0.9% flush 5-10 mL, 5-10 mL, intra-catheter, Q12H GALINA, Eben Pettit MD, 10 mL at 06/03/242041 sodium chloride 0.9% flush 5-20 mL, 5-20 mL, intra-catheter, PRN, Eben Pettit MD Allergies Allergen Reactions Sulfa (Sulfonamide Antibiotics) Social History Tobacco Use Smoking status: Never Smokeless tobacco: Never Substance and Sexual Activity Drug use: None Sexual activity: None Alcohol Use: Not At Risk (06/01/2024) AUDIT-C Frequency of Alcohol Consumption: Never Average Number of Drinks: Patient does not drink Frequency of Binge Drinking: Never No family history on file. Review of Systems: Continues to have generalized weakness Denies chest Denies shortness of breath strength is getting better Objective Vitals: 24hr Min/Max: Temp Min: 36.2 ??C (97.2 ??F) Max: 36.8 ??C (98.2 ??F) Pulse Min: 72 Max: 91 BP Min: 90/60 Max: 120/63 Resp Min: 20 Max: 24 SpO2 Min: 91 % Max: 98 % Most Recent: Vitals: 06/04/24 0400 BP: 92/55 Pulse: 86 Resp: 20 Temp: 36.6 ??C (97.8 ??F) SpO2: 97% No intake/output data recorded. No intake/output data recorded. Physical Exam: General: in no apparent distress Neuro: Alert and oriented x 3, moves all extremities well HEENT: normocephalic, atraumatic, thyroid not enlarged. I do not appreciate JVD. Neck: There are nocarotid bruits. Lungs: symmetric, unlabored, clear to auscultation bilaterally Heart: S1,S2, irregular rate & rhythm, no murmurs, rubs, or gallops Abdomen: soft, non-tender, non-distended, bowel sounds present Extremities: no LE edema, palpable peripheral pulses BL Neurologic: No focal deficits Lab/Radiology/Diagnostic Review: Laboratory review: Lab results in the last 24 hours: Recent Results (from the past 24 hour(s)) POCT glucose Collection Time: 06/03/24 6:48 AM Result Value Ref Range Glucose, POC 113 70 - 199 mg/dL POCT glucose Collection Time: 06/03/24 11:26 AM Result Value Ref Range Glucose, POC 139 70 - 199 mg/dL POCT glucose Collection Time: 06/03/24 4:26 PM Result Value Ref Range Glucose, POC 94 70 - 199 mg/dL POCT glucose Collection Time: 06/03/24 8:08 PM Result Value Ref Range Glucose, POC 141 70 - 199 mg/dL CBC with auto differential Collection Time: 06/04/24 4:53 AM Result Value Ref Range WBC 6.2 3.8 - 9.9 K/cumm Hgb 12.2 11.9 - 15.5 g/dL Hct 38.0 35.6 - 45.5 % Plt 332 150 - 400 K/cumm MPV 9.0 (L) 9.1 - 12.3 fL RBC 3.73 (L) 3.90 - 5.20 M/cumm MCV 101.9 (H) 81.3 - 96.4 fL MCH 32.7 27.1 - 33.3 pg MCHC 32.1 (L) 32.3 - 35.7 g/dL RDW CV 13.4 11.1 - 14.9 % RDW SD 49.9 (H) 35.7 - 48.1 fL NRBC abs 0.00 0.00 - 0.01 K/cumm Comprehensive metabolic panel Collection Time: 06/04/24 4:53 AM Result Value Ref Range Sodium 131 (L) 135 - 145 mmol/L Potassium, pl 4.2 3.3 - 4.9 mmol/L Chloride 95 (L) 97 - 110 mmol/L CO2 28 22 - 32 mmol/L Anion gap 8 2 - 15 mmol/L BUN 18 6 - 25 mg/dL Creatinine 0.72 0.60 - 1.10 mg/dL Glucose 104 70 - 199 mg/dL Calcium 8.7 8.5 - 10.3 mg/dL Bilirubin, total 0.6 0.1 - 1.2 mg/dL Protein, pl 7.6 6.5 - 8.5 g/dL Albumin 3.1 (L) 3.5 - 5.0 g/dL Alk phos 272 (H) 40 - 130 Units/L ALT <5 (L) 7 - 45 Units/L AST 20 10 - 45 Units/L Magnesium Collection Time: 06/04/24 4:53 AM Result Value Ref Range Magnesium 2.1 1.4 - 2.5 mg/dL Phosphorus Collection Time: 06/04/24 4:53 AM Result Value Ref Range Phosphorus, pl 3.0 2.3 - 4.5 mg/dL Differential, auto Collection Time: 06/04/24 4:53 AM Result Value Ref Range Neutrophil abs 4.0 1.5 - 6.5 K/cumm Imm gran abs 0.1 0.0 - 0.1 K/cumm Lymphocyte abs 1.3 0.8 - 3.3 K/cumm Monocyte abs 0.6 0.2 - 0.8 K/cumm Eosinophil abs 0.1 0.0 - 0.5 K/cumm Basophil abs 0.1 0.0 - 0.1 K/cumm Neutrophil pct 64.4 % Imm gran pct 0.8 % Lymphocyte pct 21.7 % Monocyte pct 9.5 % Eosinophil pct 2.1 % Basophil pct 1.5 % eGFR Collection Time: 06/04/24 4:53 AM Result Value Ref Range eGFR >90 >=60 mL/min/1.73 m2 POCT glucose Collection Time: 06/04/24 6:25 AM Result Value Ref Range Glucose, POC 118 70 - 199 mg/dL Lipids: No results found for: CHOL , CHLPL , HDL , LDLCALC , TRIG , CHOLHDL and Cardiac Enzymes: No results found for: CKTOTAL , CKMB , CKMBINDEX , TROPONINT ECG: Results for orders placed during the hospital encounter of 05/29/24 ECG 12 lead Narrative Vent Rate: 86 bpm RR Interval: 697 msec HI Interval: 0 msec QRS Duration: 157 msec QT Interval: 470 msec QTC Interval: 513 msec P-R-T [place]: 0 - 38 - 88 degrees IMPRESSION: ATRIAL FIBRILLATION WITH ABERRANT CONDUCTION OR VENTRICULAR PREMATURE COMPLEXES LEFT BUNDLE BRANCH BLOCK [120+ ms QRS DURATION, 80+ ms Q/S IN V1/V2, 85+ ms R IN I/aVL/V5/V6] ABNORMAL ECG Compared to prior EKG, ventricular pacing is no longer present Electronically Signed By: Antonio Carlos MD ASSESSMENT/PLAN: 1. Questionable endocarditis -no vegetations seen on CHANCE -continue therapy per Infectious Disease until 06-09-24 Atrial fibrillation -CHANCE discovered left atrial appendage clot therefore no cardioversion was attempted -Tikosyn loading has been started, QTC is actually shorter than prior to starting the Tikosyn -she remains in AFib on telemetry and on exam with fairly well-controlled rate Dislodged catheter -in pulmonary artery -seen on both CT scan and CHANCE Acute on chronic congestive heart failure -clinically compensated at this time -EF 30% by echo Neck pain -source unclear Diabetes type 2 -per hospitalist Hypothyroid -treated In future would benefit from upgrade of dual-chamber ICD to Bi V ICD but that should not be done atleast for 30 days after antibiotics are finished * Ty Mcfarland MD - 06/04/2024 6:35 AM CDT Pertinent info was reviewed. Full cardiology note to follow * Virginie Simon NP - 06/03/2024 1:06 PM CDT Infectious Disease Progress Note Lei Rodriguez Age: 63 y.o. Admit Date: 05/29/2024 Today's Date: 06/03/2024 Length of Stay: 5 Reason for consult: MSSA bacteremia/Suspected endocarditis Subjective: Afebrile No leukocytosis Pt was alert, sitting on side of bed, on RA. Denies pain. She reports fair appetite. LBM 2 days ago. Denies N/V/D, SOB, cough, CP, or new rash. Family at bedside. ROS: See Subjective section above Anti-infectives (From admission, onward) Start Dose/Rate Route Frequency Ordered Stop 05/29/24 5162 ceFAZolin (ANCEF) 2,000 mg/100 mL in dextrose (premix) 2,000 mg 2,000 mg 200 mL/hr over 30 Minutes intravenous Every 8 hours scheduled 05/29/24 2201 Objective: Vitals: 24hr Min/Max: Temp Min: 36.2 ??C (97.2 ??F) Max: 36.9 ??C (98.4 ??F) Pulse Min: 73 Max: 91 BP Min: 107/65 Max: 122/80 Resp Min: 24 Max: 26 SpO2 Min: 90 % Max: 95 % Most Recent : Vitals: 06/03/24 0010 06/03/24 0430 06/03/24 0517 06/03/24 0756 BP: 107/65 111/71 115/60 BP Location: Right arm Right arm Right arm Patient Position: Lying Sitting Pulse: 79 77 91 Resp: 24 Temp: 36.9 ??C (98.4 ??F) 36.8 ??C (98.2 ??F) 36.2 ??C (97.2 ??F) TempSrc: Oral Oral Oral SpO2: 90% 93% 91% Weight: 116.5 kg (256 lb 13.4 oz) Height: Physical Exam: General appearance: no distress Lungs: breath sounds clear bilaterally, normal WOB Heart: regular rhythm, normal S1 and S2 Abdomen: soft without mass, non-tender, +bowel sounds Extremities: no gross deformities Skin: no new rashes, no ulcerations Vascular: no edema, pulses present bilaterally Neuro: Alert, no focal deficit Recent Labs Lab Units 06/03/24 0305 06/02/24 0254 06/01/24 0449 WBC K/cumm 6.0 5.6 7.0 HEMOGLOBIN g/dL 11.8* 11.5* 11.5* HEMATOCRIT % 37.6 35.9 36.0 PLATELETS K/cumm 374 351 337 Recent Labs Lab Units 06/03/24 0305 06/02/24 0254 06/01/24 0449 BUN SERUM mg/dL 20 14 13 CREATININE mg/dL 0.80 0.69 0.67 Lab Results Component Value Date ALT <5 (L) 06/03/2024 AST 20 06/03/2024 ALKPHOS 287 (H) 06/03/2024 BILITOT 0.5 06/03/2024 Lab/Radiology/Diagnostic Review: 05/30 blood cultures: no growth to date OS Microbiology: 05/21 blood cultures MSSA 05/22 blood cultures MSSA OSH ECHO reportedly with Tricuspid valve vegetation 06/01 CT A/P W: 1. Mosaic attenuation in the lung bases suggestive of interstitial pulmonary edema. 2. Diffuse hepatic steatosis. 3. Small hiatal hernia. 4. Trace left pleural effusion. 5. Additional chronic or incidental findings as above. 05/30 CT Chest WO: 1. Redemonstrated curvilinear radiopaque density extending from the proximal right lower lobe pulmonary artery into a subsegmental lateral basilar branch favors a catheter or wire fragment. 2. Findings most suggestive of heart failure with cardiomegaly, small volume pericardial effusion, and small bilateral pleural effusions and mild pulmonary edema. 05/30 CT Chest PE W: 1. Motion degraded evaluation of the pulmonary [...] LFTs. 5. Additional findings as described above. 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 Hutchinson - Cardiology following - Monitor fever curve and WBC - Supportive care Virginie Simon NP [place] [facility] Office: [phone] 06/03/2024 Cosigned by Stevie Munoz MD at 06/18/2024 8:05 PM CDT * Cristian Avery MD - 06/03/2024 11:51 AM CDT Cardiology Progress note SUBJECTIVE: Ms. Rodriguez Doing ok INTERIM CHANGE PAST 24 HOURS: improved Full ROS negative except OBJECTIVE: Vitals: 06/03/24 0430 06/03/24 0517 06/03/24 0756 06/03/24 1145 BP: 111/71 115/60 93/54 BP Location: Right arm Right arm Right arm Patient Position: Sitting Lying Pulse: 77 91 73 Resp: Temp: 36.8 ??C (98.2 ??F) 36.2 ??C (97.2 ??F) 36.7 ??C (98.1 ??F) TempSrc: Oral Oral Oral SpO2: 93% 91% 97% Weight: 116.5 kg (256 lb 13.4 oz) Height: No intake/output data recorded. No intake/output data recorded. General: in no apparent distress Neuro: Alert and oriented x 3, moves all extremities well HEENT: normocephalic, atraumatic, thyroid not enlarged. I do not appreciate JVD. Neck: There are nocarotid bruits. Lungs: symmetric, unlabored, clear to auscultation bilaterally Heart: S1,S2, irregular rate & rhythm, no murmurs, rubs, or gallops Abdomen: soft, non-tender, non-distended, bowel sounds present Extremities: no LE edema, palpable peripheral pulses BL Neurologic: No focal deficits LABS: Recent Results (from the past 48 hour(s)) POCT glucose Collection Time: 06/01/24 4:54 PM Result Value Ref Range Glucose, POC 128 70 - 199 mg/dL POCT glucose Collection Time: 06/01/24 10:00 PM Result Value Ref Range Glucose, POC 205 (H) 70 - 199 mg/dL POCT glucose Collection Time: 06/02/24 2:40 AM Result Value Ref Range Glucose, POC 137 70 - 199 mg/dL CBC with auto differential Collection Time: 06/02/24 2:54 AM Result Value Ref Range WBC 5.6 3.8 - 9.9 K/cumm Hgb 11.5 (L) 11.9 - 15.5 g/dL Hct 35.9 35.6 - 45.5 % Plt 351 150 - 400 K/cumm MPV 9.3 9.1 - 12.3 fL RBC 3.54 (L) 3.90 - 5.20 M/cumm MCV 101.4 (H) 81.3 - 96.4 fL MCH 32.5 27.1 - 33.3 pg MCHC 32.0 (L) 32.3 - 35.7 g/dL RDW CV 13.7 11.1 - 14.9 % RDW SD 51.3 (H) 35.7 - 48.1 fL NRBC abs 0.00 0.00 - 0.01 K/cumm Comprehensive metabolic panel Collection Time: 06/02/24 2:54 AM Result Value Ref Range Sodium 131 (L) 135 - 145 mmol/L Potassium, pl 3.9 3.3 - 4.9 mmol/L Chloride 93 (L) 97 - 110 mmol/L CO2 29 22 - 32 mmol/L Anion gap 9 2 - 15 mmol/L BUN 14 6 - 25 mg/dL Creatinine 0.69 0.60 - 1.10 mg/dL Glucose 151 70 - 199 mg/dL Calcium 8.6 8.5 - 10.3 mg/dL Bilirubin, total 0.7 0.1 - 1.2 mg/dL Protein, pl 7.3 6.5 - 8.5 g/dL Albumin 2.7 (L) 3.5 - 5.0 g/dL Alk phos 307 (H) 40 - 130 Units/L ALT 5 (L) 7 - 45 Units/L AST 18 10 - 45 Units/L Magnesium Collection Time: 06/02/24 2:54 AM Result Value Ref Range Magnesium 2.0 1.4 - 2.5 mg/dL Phosphorus Collection Time: 06/02/24 2:54 AM Result Value Ref Range Phosphorus, pl 3.5 2.3 - 4.5 mg/dL Differential, auto Collection Time: 06/02/24 2:54 AM Result Value Ref Range Neutrophil abs 3.6 1.5 - 6.5 K/cumm Imm gran abs 0.1 0.0 - 0.1 K/cumm Lymphocyte abs 1.1 0.8 - 3.3 K/cumm Monocyte abs 0.7 0.2 - 0.8 K/cumm Eosinophil abs 0.1 0.0 - 0.5 K/cumm Basophil abs 0.1 0.0 - 0.1 K/cumm Neutrophil pct 63.0 % Imm gran pct 0.9 % Lymphocyte pct 20.0 % Monocyte pct 12.2 % Eosinophil pct 2.5 % Basophil pct 1.4 % eGFR Collection Time: 06/02/24 2:54 AM Result Value Ref Range eGFR >90 >=60 mL/min/1.73 m2 POCT glucose Collection Time: 06/02/24 6:38 AM Result Value Ref Range Glucose, POC 155 70 - 199 mg/dL POCT glucose Collection Time: 06/02/24 11:28 AM Result Value Ref Range Glucose, POC 151 70 - 199 mg/dL POCT glucose Collection Time: 06/02/24 4:13 PM Result Value Ref Range Glucose, POC 147 70 - 199 mg/dL POCT glucose Collection Time: 06/02/24 8:54 PM Result Value Ref Range Glucose, POC 144 70 - 199 mg/dL CBC with auto differential Collection Time: 06/03/24 3:05 AM Result Value Ref Range WBC 6.0 3.8 - 9.9 K/cumm Hgb 11.8 (L) 11.9 - 15.5 g/dL Hct 37.6 35.6 - 45.5 % Plt 374 150 - 400 K/cumm MPV 9.3 9.1 - 12.3 fL RBC 3.67 (L) 3.90 - 5.20 M/cumm MCV 102.5 (H) 81.3 - 96.4 fL MCH 32.2 27.1 - 33.3 pg MCHC 31.4 (L) 32.3 - 35.7 g/dL RDW CV 13.8 11.1 - 14.9 % RDW SD 51.8 (H) 35.7 - 48.1 fL NRBC abs 0.00 0.00 - 0.01 K/cumm Comprehensive metabolic panel Collection Time: 06/03/24 3:05 AM Result Value Ref Range Sodium 133 (L) 135 - 145 mmol/L Potassium, pl 4.4 3.3 - 4.9 mmol/L Chloride 96 (L) 97 - 110 mmol/L CO2 29 22 - 32 mmol/L Anion gap 8 2 - 15 mmol/L BUN 20 6 - 25 mg/dL Creatinine 0.80 0.60 - 1.10 mg/dL Glucose 120 70 - 199 mg/dL Calcium 8.7 8.5 - 10.3 mg/dL Bilirubin, total 0.5 0.1 - 1.2 mg/dL Protein, pl 7.3 6.5 - 8.5 g/dL Albumin 2.8 (L) 3.5 - 5.0 g/dL Alk phos 287 (H) 40 - 130 Units/L ALT <5 (L) 7 - 45 Units/L AST 20 10 - 45 Units/L Magnesium Collection Time: 06/03/24 3:05 AM Result Value Ref Range Magnesium 2.0 1.4 - 2.5 mg/dL Phosphorus Collection Time: 06/03/24 3:05 AM Result Value Ref Range Phosphorus, pl 3.3 2.3 - 4.5 mg/dL Differential, auto Collection Time: 06/03/24 3:05 AM Result Value Ref Range Neutrophil abs 3.4 1.5 - 6.5 K/cumm Imm gran abs 0.0 0.0 - 0.1 K/cumm Lymphocyte abs 1.5 0.8 - 3.3 K/cumm Monocyte abs 0.9 (H) 0.2 - 0.8 K/cumm Eosinophil abs 0.2 0.0 - 0.5 K/cumm Basophil abs 0.1 0.0 - 0.1 K/cumm Neutrophil pct 56.9 % Imm gran pct 0.5 % Lymphocyte pct 24.5 % Monocyte pct 14.3 % Eosinophil pct 2.5 % Basophil pct 1.3 % eGFR Collection Time: 06/03/24 3:05 AM Result Value Ref Range eGFR 83 >=60 mL/min/1.73 m2 POCT glucose Collection Time: 06/03/24 6:48 AM Result Value Ref Range Glucose, POC 113 70 - 199 mg/dL POCT glucose Collection Time: 06/03/24 11:26 AM Result Value Ref Range Glucose, POC 139 70 - 199 mg/dL RADIOLOGY: ECG 12 lead Result Date: 06/02/2024 Narrative: Vent Rate: 76 bpm RR Interval: 782 msec HI Interval: 0 msec QRS Duration: 158 msec QT Interval: 494 msec QTC Interval: 525 msec P-R-T [place]: 0 - 116 - 120 degrees IMPRESSION: [...] Rate: 102 bpm RR Interval: 584 msec HI Interval: 0 msec QRS Duration: 149 msec QT Interval: 387 msec QTC Interval: 446 msec P-R-T [place]: 0 - 115 - 66 degrees IMPRESSION: ATRIAL FIBRILLATION WITH RAPID VENTRICULAR RESPONSE WITH ABERRANT CONDUCTION OR VENTRICULAR PREMATURE COMPLEXES INDETERMINATE AXIS INTRAVENTRICULAR CONDUCTION DELAY [130+ ms QRS DURATION] ABNORMAL ECG NO CHANGE FROM PREVIOUS TRACING NOTED Electronically Signed By: Atnonio Carlos MD ECG 12 lead Result Date: 06/01/2024 Narrative: Vent Rate: 83 bpm RR Interval: 716 msec HI Interval: 0 msec QRS Duration: 154 msec QT Interval: 409 msec QTC Interval: 449 msec P-R-T [place]: 0 - 123 - 189 degrees IMPRESSION: ATRIAL FIBRILLATION INTRAVENTRICULAR CONDUCTION DELAY LATERAL MYOCARDIAL INFARCTION , OF INDETERMINATE AGE Electronically Signed By: Cristino Kingsley MD, [facility] ECG 12 lead Result Date: 05/31/2024 Narrative: Vent Rate: 74 bpm RR Interval: 810 msec HI Interval: 0 msec QRS Duration: 151 msec QT Interval: 449 msec QTC Interval: 476 msec P-R-T [place]: 0 - 102 - 146 degrees IMPRESSION: VENTRICULAR PACED RHYTHM Electronically Signed By: Cristino Kingsley MD, [facility] ECG 12 lead Result Date: 05/31/2024 Narrative: Vent Rate: 76 bpm RR Interval: 785 msec HI Interval: 0 msec QRS Duration: 150 msec QT Interval: 471 msec QTC Interval: 501 msec P-R-T [place]: 0 - 80 - 97 degrees IMPRESSION: ATRIAL FIBRILLATION WITH ABERRANT CONDUCTION OR VENTRICULAR PREMATURE COMPLEXES INTRAVENTRICULAR CONDUCTION DELAY [130+ ms QRS DURATION] ABNORMAL ECG Electronically Signed By: Dr. Shiloh Muhammad [facility] ECG 12 lead Result Date: 05/30/2024 Narrative: Vent Rate: 109 bpm RR Interval: 548 msec HI Interval: 0 msec QRS Duration: 149 msec QT Interval: 398 msec QTC Interval: 462 msec P-R-T [place]: 0 - 96 - 89 degrees IMPRESSION: ATRIAL FIBRILLATION WITH RAPID VENTRICULAR RESPONSE BORDERLINE RIGHT AXIS DEVIATION [QRS AXIS > 90] INTRAVENTRICULAR CONDUCTION DELAY [130+ ms QRS DURATION] ABNORMAL ECG Unchanged compared to an EKG done earlier on May 30, 2024 Electronically Signed By: Dr. Shiloh Muhammad [facility] CT Chest WO Contrast Result Date: 05/30/2024 [...] Complete W Doppler/CF Result Date: 05/30/2024 Narrative: [place] [address] Echocardiogram Report Patient Name: LEI RODRIGUEZ V : 1960 Study Date: 05/30/2024 7:47:08 AM Gender: F Tech: [email or web address] Location: [place] [address] Ref Provider: TY MCFARLAND Height(Cm): 165 BSA: [...] 33.1 percent AV Mean PG 3 mmHg HSUMp0H 5.71 [ 3.80 - 5.20 ] cm [...] Trivial pericardial effusion. Electronically Signed By: Coleen Kwok DO, [facility], MELISSA CANDELARIO 2024-05-30 09:18:05 CDT CC: CC: [...] Rate: 86 bpm RR Interval: 697 msec HI Interval: 0 msec QRS Duration: 145 msec QT Interval: 438 msec QTC Interval: 481 msec P-R-T [place]: 0 - 101 - 95 degrees IMPRESSION: ATRIAL FIBRILLATION RIGHT AXIS DEVIATION [QRS AXIS > 100] INTRAVENTRICULAR CONDUCTION DELAY [130+ ms QRS DURATION] ABNORMAL ECG Unchanged compared to 05/29/2021 Electronically Signed By: Dr. Shiloh Muhammad [facility] CT Chest PE (CTA) W Contrast Result Date: 05/30/2024 Narrative: EXAMINATION: CT CHEST PE (CTA) W CONTRAST HISTORY: Chest pain ORDER DATE: 05/30/2024 3:20AM TECHNIQUE: CT chest images were acquired using a chest angiographic protocol with 3-D imaging optimized for PE is obtained [id number] mL of Optiray 350 IV. 2D Coronal [...] findings as described above. Stat report by [facility] . Electronically signed by: Andrea Abernathy M.D. [...] and partially calcified bulging disc contributing to [id number] central spinal stenosis. Disc osteophyte complex also contributing to [id number] central spinal stenosis at C4-C5 level. No significant disc bulge or herniation. No severe spinal canal stenosis. Uncovertebral joint hypertrophy contributing to multilevel bilateral neural foraminal stenosis. Lungs: Lung apices are normal. Soft tissues: Unremarkable. Impression: No acute cervical spine injury. Stat report by [facility] Stat report by [facility] Electronically signed by: Andrea Abernathy M.D. CT [...] No acute intracranial findings. Stat report by [facility] Electronically signed by: Andrea Abernathy M.D. ECG 12 lead Result Date: 05/30/2024 Narrative: Vent Rate: 93 bpm RR Interval: 645 msec HI Interval: 0 msec QRS Duration: 97 msec QT Interval: 197 msec QTC Interval: 247 msec P-R-T [place]: 0 - 118 - 0 degrees IMPRESSION: [...] ECG Electronically Signed By: Antonio Carlos MD EKG: Results for orders placed during the hospital encounter of 05/29/24 ECG 12 lead Narrative Vent Rate: 76 bpm RR Interval: 782 msec HI Interval: 0 msec QRS Duration: 158 msec QT Interval: 494 msec QTC Interval: 525 msec P-R-T [place]: 0 - 116 - 120 degrees IMPRESSION: ATRIAL FIBRILLATION WITH demand ventricular pacemaker MARKED RIGHT AXIS DEVIATION [QRS AXIS > 100] INTRAVENTRICULAR CONDUCTION DELAY [130+ ms QRS DURATION] ABNORMAL ECG Compared to prior EKG, demand ventricular pacing is new Electronically Signed By: Antonio Carlos MD ASSESSMENT/PLAN: 1. Questionable endocarditis -no vegetations seen on CHANCE -continue therapy per Infectious Disease until 06-09-24 Atrial fibrillation -CHANCE discovered left atrial appendage clot therefore no cardioversion was attempted -Tikosyn loading has been started, QTC is actually shorter than prior to starting the Tikosyn -she remains in AFib on telemetry and on exam with fairly well-controlled rate Dislodged catheter -in pulmonary artery -seen on both CT scan and CHANCE Acute on chronic congestive heart failure -clinically compensated at this time -EF 30% by echo Neck pain -source unclear Diabetes type 2 -per hospitalist Hypothyroid -treated Cristian Avery MD [facility] 06/03/2024 11:52 AM * Elly Julian MD - 06/03/2024 11:46 AM CDT Daily Progress Chief complaint:Abdominal pain Subjective: Patient lying in bed, smiling, in better spirits today, discussed plan with her and with RN, no new issues Interval History: As per HPI-Ms Lei Rodriguez is a 63 y.o. female with history of afib, CHF, DM, GERD,HTN, Intellectual disability, OAB, JOSE, thyroid disease, AICD, PPM, Cholecystectomy. Presented to [facility] on with nausea, vomiting, diarrhea, and abdominal pain. Livesat home with her sister. Limited historian due to intellectual disability. She was ultimately found to have endocarditis. Persistent positive blood cultures for staph aureus. ED put on vanc, zosyn, and IVF initially Now on Ancef at transfer Currently complains of right neck pain radiating to her right ear. Pain also on right mastoid. No hearing change, tinnitus, or hearing loss. She has been a little SOB on laying down for the past few days. No chest pain, pressure, or discomfort. Admit eval: Hyponatremia to 122 17% PMN with normal WBC. Plt 109 Cr 1 --> 0.7 Bili 2.4 AST 127 ALT 85 Alk selvin 159 CXR mild edema with trace pleural effuion and cardiomegaly CT a/p: Small hiatal hernia UA without UTI. 3+ glucose, 1+ ketones, 1+ blood. 0-2 RBC and 0-5 WBC. Negative FLU, RSV, COVID EKbpm afib LBBB 4/ blood cx positive staph aureus Echo: EF 40-45% Mod LAE. JOSEPH TV vegetation at 2mm not clearly involving the AICD. CHANCE: LAE. Small central MR. 2mm TV vegetation mobile and prolapses into the right atrium in systole Most recent labs 05/20 INR 3.9 PTT 50 05/28 WBC 13.3, Hgb 12.4, PLT 258, 74% PMN. 05/28: NA 131. Cr 0.5 AST 45 ALT 21 AP 434 CRP elevated 31.1 OSH imaging (final reads below): C spine 05/21 No acute fx or traumatic malalignment. No severe central canal or neural foraminal narrowing HCT 05/21 No acute intracranial process CXR 05/21 Mild pulmonary edema and trace pleural effusion. Cardiomegaly CT abdomen/pelvis 05/21 Small sliding hiatal hernia Abdominal ultrasound Normal RUQ u/S post luz 05-30:Patient sitting up in a chair, d/w Dr. Mcfarland, requested CT chest which shows possible catheter or wire fragment, CTS to evaluate in a.m., advanced diet 05-31:Patient lying in bed, d/w Dr. Mcfarland-cleared from cards standpoint, EKG stable on Tikosyn-continue current dose as per EP, d/w Dr. Alejandra CTS -no surgical intervention planned for small wire/fragment in pulm artery, d/w Dr. Abernathy-IR retrieval not possible, d/w ID-await final antibiotic recs 06-01:Patient lying in bed, d/w ID, attempt to get culture results from [place] as per ID, CT abdomen/pelvis no evidence of source of infection, still has volume overload, continue IV lasix 06-02:D/w sister Dilia, no new complaints, d/w SW Review of Systems Gen: No fever, No chills, CV: No chest pain Resp: No SOB GI: No nausea, No vomiting, abdominal pain controlled Objective: Vitals: 24hr Min/Max: Temp Min: 36.2 ??C (97.2 ??F) Max: 36.9 ??C (98.4 ??F) Pulse Min: 73 Max: 91 BP Min: 93/54 Max: 122/80 Resp Min: 24 Max: 26 SpO2 Min: 90 % Max: 97 % Most Recent : Vitals: 06/03/24 0430 06/03/24 0517 06/03/24 0756 06/03/24 1145 BP: 111/71 115/60 93/54 BP Location: Right arm Right arm Right arm Patient Position: Sitting Lying Pulse: 77 91 73 Resp: 24 24 Temp: 36.8 ??C (98.2 ??F) 36.2 ??C (97.2 ??F) 36.7 ??C (98.1 ??F) TempSrc: Oral Oral Oral SpO2: 93% 91% 97% Weight: 116.5 kg (256 lb 13.4 oz) Height: Physical Exam: Gen:Well built female Lungs:Symmetrical breath sounds b/l Heart:S1,S2 heard Abdomen:Soft, NT, BS+ Extremities:No edema b/l LE Neuro:Awake, alert, answers questions Lab/Radiology/Diagnostic Review: Recent Results (from the past 24 hour(s)) POCT glucose Collection Time: 06/02/24 4:13 PM Result Value Ref Range Glucose, POC 147 70 - 199 mg/dL POCT glucose Collection Time: 06/02/24 8:54 PM Result Value Ref Range Glucose, POC 144 70 - 199 mg/dL CBC with auto differential Collection Time: 06/03/24 3:05 AM Result Value Ref Range WBC 6.0 3.8 - 9.9 K/cumm Hgb 11.8 (L) 11.9 - 15.5 g/dL Hct 37.6 35.6 - 45.5 % Plt 374 150 - 400 K/cumm MPV 9.3 9.1 - 12.3 fL RBC 3.67 (L) 3.90 - 5.20 M/cumm MCV 102.5 (H) 81.3 - 96.4 fL MCH 32.2 27.1 - 33.3 pg MCHC 31.4 (L) 32.3 - 35.7 g/dL RDW CV 13.8 11.1 - 14.9 % RDW SD 51.8 (H) 35.7 - 48.1 fL NRBC abs 0.00 0.00 - 0.01 K/cumm Comprehensive metabolic panel Collection Time: 06/03/24 3:05 AM Result Value Ref Range Sodium 133 (L) 135 - 145 mmol/L Potassium, pl 4.4 3.3 - 4.9 mmol/L Chloride 96 (L) 97 - 110 mmol/L CO2 29 22 - 32 mmol/L Anion gap 8 2 - 15 mmol/L BUN 20 6 - 25 mg/dL Creatinine 0.80 0.60 - 1.10 mg/dL Glucose 120 70 - 199 mg/dL Calcium 8.7 8.5 - 10.3 mg/dL Bilirubin, total 0.5 0.1 - 1.2 mg/dL Protein, pl 7.3 6.5 - 8.5 g/dL Albumin 2.8 (L) 3.5 - 5.0 g/dL Alk phos 287 (H) 40 - 130 Units/L ALT <5 (L) 7 - 45 Units/L AST 20 10 - 45 Units/L Magnesium Collection Time: 06/03/24 3:05 AM Result Value Ref Range Magnesium 2.0 1.4 - 2.5 mg/dL Phosphorus Collection Time: 06/03/24 3:05 AM Result Value Ref Range Phosphorus, pl 3.3 2.3 - 4.5 mg/dL Differential, auto Collection Time: 06/03/24 3:05 AM Result Value Ref Range Neutrophil abs 3.4 1.5 - 6.5 K/cumm Imm gran abs 0.0 0.0 - 0.1 K/cumm Lymphocyte abs 1.5 0.8 - 3.3 K/cumm Monocyte abs 0.9 (H) 0.2 - 0.8 K/cumm Eosinophil abs 0.2 0.0 - 0.5 K/cumm Basophil abs 0.1 0.0 - 0.1 K/cumm Neutrophil pct 56.9 % Imm gran pct 0.5 % Lymphocyte pct 24.5 % Monocyte pct 14.3 % Eosinophil pct 2.5 % Basophil pct 1.3 % eGFR Collection Time: 06/03/24 3:05 AM Result Value Ref Range eGFR 83 >=60 mL/min/1.73 m2 POCT glucose Collection Time: 06/03/24 6:48 AM Result Value Ref Range Glucose, POC 113 70 - 199 mg/dL POCT glucose Collection Time: 06/03/24 11:26 AM Result Value Ref Range Glucose, POC 139 70 - 199 mg/dL ECG 12 lead Result Date: 05/30/2024 Narrative: Vent Rate: 109 bpm RR Interval: 548 msec HI Interval: 0 msec QRS Duration: 149 msec QT Interval: 398 msec QTC Interval: 462 msec P-R-T [place]: 0 - 96 - 89 degrees IMPRESSION: ATRIAL FIBRILLATION WITH RAPID VENTRICULAR RESPONSE BORDERLINE RIGHT AXIS DEVIATION [QRS AXIS > 90] INTRAVENTRICULAR CONDUCTION DELAY [130+ ms QRS DURATION] ABNORMAL ECG Unchanged compared to an EKG done earlier on May 30, 2024 Electronically Signed By: Dr. Shiloh Muhammad [facility] Chest WO Contrast Result Date: 05/30/2024 [...] Complete W Doppler/CF Result Date: 05/30/2024 Narrative: [place] [address] Echocardiogram Report Patient Name: LEI RODRIGUEZ V : 1960 Study Date: 05/30/2024 7:47:08 AM Gender: F Tech: GUILHERME Location: [id number] Ref Provider: TY MCFARLAND Height(Cm): 165 BSA: [...] Trivial pericardial effusion. Electronically Signed By: Coleen Kwok DO, RUBIO, MELISSA CANDELARIO 2024-05-30 09:18:05 CDT [...] in the medical record on 05/30/2024 at [facility]. Electronically signed by: Abilio Post M.D. ECG 12 lead Result Date: 05/30/2024 Narrative: Vent Rate: 86 bpm RR Interval: 697 msec HI Interval: 0 msec QRS Duration: 145 msec QT Interval: 438 msec QTC Interval: 481 msec P-R-T [place]: 0 - 101 - 95 degrees IMPRESSION: ATRIAL FIBRILLATION RIGHT AXIS DEVIATION [QRS AXIS > 100] INTRAVENTRICULAR CONDUCTION DELAY [130+ ms QRS DURATION] ABNORMAL ECG Unchanged compared to 05/29/2021 Electronically Signed By: Dr. Shiloh Muhammad [facility] CT Chest PE (CTA) W Contrast Result Date: 05/30/2024 Narrative: EXAMINATION: CT CHEST PE (CTA) W CONTRAST HISTORY: Chest pain ORDER DATE: 05/30/2024 3:20AM TECHNIQUE: CT chest images were acquired using a chest angiographic protocol with 3-D imaging optimized for PE is obtained [id number] mL of Optiray 350 IV. 2D Coronal [...] findings as described above. Stat report by [facility] . Electronically signed by: Andrea Abernathy M.D. [...] and partially calcified bulging disc contributing to [id number] central spinal stenosis. Disc osteophyte complex also contributing to [id number] central spinal stenosis at C4-C5 level. No significant disc bulge or herniation. No severe spinal canal stenosis. Uncovertebral joint hypertrophy contributing to multilevel bilateral neural foraminal stenosis. Lungs: Lung apices are normal. Soft tissues: Unremarkable. Impression: No acute cervical spine injury. Stat report by [facility] Stat report by [facility] Electronically signed by: Andrea Abernathy M.D. CT [...] No acute intracranial findings. Stat report by [facility] Electronically signed by: Andrea Abernathy M.D. ECG 12 lead Result Date: 05/30/2024 Narrative: Vent Rate: 93 bpm RR Interval: 645 msec HI Interval: 0 msec QRS Duration: 97 msec QT Interval: 197 msec QTC Interval: 247 msec P-R-T [place]: 0 - 118 - 0 degrees IMPRESSION: [...] Electronically Signed By: Antonio Carlos MD Assessment/Plan Endocarditis: Continue ancef till 06/08. Blood cultures ngtd. ID and Cardiology Consulted. OSH bloodcx-records requested. Telemetry. D/w Dr. Mcfarland/ CTS/IR- no further evaluation for removal of possible wire fragment /catheter in pulm artery on CT chest as risks outweigh benefits. Acute on chronic Systolic CHF Troponins flat. Echo shows EF 30%. On IV lasix. Evidence of volume overload on CT chest. On Entresto, coreg. Neck pain Seem to be MSK. CT head/C spine no acute pathology. Flexeril x1 06-02. Chronic afib Continue coreg, dilt, and Xarelto, Tikosyn as per Cards DM Some elevated blood sugars on Lantus and SSI. Added scheduled Humalog .Increased lantus dose and scheduled Humalog dose on 05-31 as blood sugars elevated. Hypothyroidism On Synthroid JOSE Apparently was not using her NPPV at OSH, Defer BMI 47.22 DVT ppx: Xarelto MDM:Low Disposition:Possibly will complete antibiotics while at the hospital as per sister's request -PICC line/IV infusion not set up Expected Date of Discharge: 06-09 Barriers to Discharge:Completion of IV antibiotics These fluid and electrolyte abnormalities are being treated, evaluated or monitored: Hyperkalemia-resolved Hyponatremia-monitor * Ty Mcfarland MD - 06/03/2024 8:28 AM CDT Images from the original note were not included. Remote non billable EP/cardiology note Stable QT/ Qtc . Okay to dc daily EKGs. Continue current AAD drugs and anticoagulation Dofetilide dose was changed back to 500 mcg PO bid Latest Reference Range & Units 06/03/24 03:05 Potassium, pl 3.3 - 4.9 mmol/L 4.4 Latest Reference Range & Units 06/03/24 03:05 Magnesium 1.4 - 2.5 mg/dL 2.0 Latest Reference Range & Units 06/03/24 03:05 Creatinine 0.60 - 1.10 mg/dL 0.80 Latest Reference Range & Units 06/03/24 03:05 eGFR >=60 mL/min/1.73 m2 83 ECG 12 lead Order: [id number] Status: Final result Visible to patient: No (inaccessible in MyChart) Next appt: None 0 Result Notes Details Narrative Vent Rate: 86 bpm RR Interval: 697 msec HI Interval: 0 msec QRS Duration: 157 msec QT Interval: 470 msec QTC Interval: 513 msec P-R-T [place]: 0 - 38 - 88 degrees IMPRESSION: ATRIAL FIBRILLATION WITH ABERRANT CONDUCTION OR VENTRICULAR PREMATURE COMPLEXES LEFT BUNDLE BRANCH BLOCK [120+ ms QRS DURATION, 80+ ms Q/S IN V1/V2, 85+ ms R IN I/aVL/V5/V6] ABNORMAL ECG Compared to prior EKG, ventricular pacing is no longer present Electronically Signed By: Antonio Carlos MD Specimen Collected: 06/02/24 11:12 Last Resulted: 06/02/24 12:30 Diagnostic Imaging [address] [place] [address] XR Chest 1 View Status: Final result Study Result Narrative & Impression EXAMINATION: XR CHEST 1 VIEW History: Shortness of breath IMPRESSION: Single view chest exam similar for interpretation with comparison to prior from 03/07/2017. Correlation made with CT from the same day There are diffuse interstitial and airspace opacities [...] the medical record on 05/30/2024 at 457. * Elly Julian MD - 06/02/2024 6:52 PM CDT Daily Progress Chief complaint:Abdominal pain Subjective:D/w sister Dilia, no new complaints, d/w SW Interval History: As per HPI-Ms Lie Rodriguez is a 63 y.o. female with history of afib, CHF, DM, GERD,HTN, Intellectual disability, OAB, JOSE, thyroid disease, AICD, PPM, Cholecystectomy. Presented to [facility] on with nausea, vomiting, diarrhea, and abdominal pain. Livesat home with her sister. Limited historian due to intellectual disability. She was ultimately found to have endocarditis. Persistent positive blood cultures for staph aureus. ED put on vanc, zosyn, and IVF initially Now on Ancef at transfer Currently complains of right neck pain radiating to her right ear. Pain also on right mastoid. No hearing change, tinnitus, or hearing loss. She has been a little SOB on laying down for the past few days. No chest pain, pressure, or discomfort. Admit eval: Hyponatremia to 122 17% PMN with normal WBC. Plt 109 Cr 1 --> 0.7 Bili 2.4 AST 127 ALT 85 Alk selvin 159 CXR mild edema with trace pleural effuion and cardiomegaly CT a/p: Small hiatal hernia UA without UTI. 3+ glucose, 1+ ketones, 1+ blood. 0-2 RBC and 0-5 WBC. Negative FLU, RSV, COVID EKbpm afib LBBB 4/ blood cx positive staph aureus Echo: EF 40-45% Mod LAE. JOSEPH TV vegetation at 2mm not clearly involving the AICD. CHANCE: LAE. Small central MR. 2mm TV vegetation mobile and prolapses into the right atrium in systole Most recent labs 05/20 INR 3.9 PTT 50 05/28 WBC 13.3, Hgb 12.4, PLT 258, 74% PMN. 05/28: NA 131. Cr 0.5 AST 45 ALT 21 AP 434 CRP elevated 31.1 OSH imaging (final reads below): C spine 05/21 No acute fx or traumatic malalignment. No severe central canal or neural foraminal narrowing HCT 05/21 No acute intracranial process CXR 05/21 Mild pulmonary edema and trace pleural effusion. Cardiomegaly CT abdomen/pelvis 05/21 Small sliding hiatal hernia Abdominal ultrasound Normal RUQ u/S post luz 05-30:Patient sitting up in a chair, d/w Dr. Mcfarland, requested CT chest which shows possible catheter or wire fragment, CTS to evaluate in a.m., advanced diet 05-31:Patient lying in bed, d/w Dr. Mcfarland-cleared from cards standpoint, EKG stable on Tikosyn-continue current dose as per EP, d/w Dr. Alejandra CTS -no surgical intervention planned for small wire/fragment in pulm artery, d/w Dr. Abernathy-IR retrieval not possible, d/w ID-await final antibiotic recs 06-01:Patient lying in bed, d/w ID, attempt to get culture results from Ernie as per ID, CT abdomen/pelvis no evidence of source of infection, still has volume overload, continue IV lasix Review of Systems Gen: No fever, No chills, CV: No chest pain Resp: No SOB GI: No nausea, No vomiting, abdominal pain controlled Objective: Vitals: 24hr Min/Max: Temp Min: 36.6 ??C (97.9 ??F) Max: 36.8 ??C (98.3 ??F) Pulse Min: 80 Max: 100 BP Min: 87/56 Max: 144/77 Resp Min: 19 Max: 28 SpO2 Min: 90 % Max: 95 % Most Recent : Vitals: 06/02/24 0434 06/02/24 0804 06/02/24 1121 06/02/24 1642 BP: 136/71 (!) 87/56 112/71 114/60 BP Location: Left arm Right arm Right arm Right arm Patient Position: Lying Sitting Lying Sitting Pulse: 90 100 80 83 Resp: Temp: 36.8 ??C (98.2 ??F) 36.8 ??C (98.2 ??F) 36.8 ??C (98.2 ??F) 36.7 ??C (98.1 ??F) TempSrc: Oral Oral Oral Oral SpO2: 95% 93% 90% 95% Weight: Height: Physical Exam: Gen:Well built female Lungs:Symmetrical breath sounds b/l Heart:S1,S2 heard Abdomen:Soft, NT, BS+ Extremities:No edema b/l LE Neuro:Awake, alert, answers questions Lab/Radiology/Diagnostic Review: Recent Results (from the past 24 hour(s)) POCT glucose Collection Time: 06/01/24 10:00 PM Result Value Ref Range Glucose, POC 205 (H) 70 - 199 mg/dL POCT glucose Collection Time: 06/02/24 2:40 AM Result Value Ref Range Glucose, POC 137 70 - 199 mg/dL CBC with auto differential Collection Time: 06/02/24 2:54 AM Result Value Ref Range WBC 5.6 3.8 - 9.9 K/cumm Hgb 11.5 (L) 11.9 - 15.5 g/dL Hct 35.9 35.6 - 45.5 % Plt 351 150 - 400 K/cumm MPV 9.3 9.1 - 12.3 fL RBC 3.54 (L) 3.90 - 5.20 M/cumm MCV 101.4 (H) 81.3 - 96.4 fL MCH 32.5 27.1 - 33.3 pg MCHC 32.0 (L) 32.3 - 35.7 g/dL RDW CV 13.7 11.1 - 14.9 % RDW SD 51.3 (H) 35.7 - 48.1 fL NRBC abs 0.00 0.00 - 0.01 K/cumm Comprehensive metabolic panel Collection Time: 06/02/24 2:54 AM Result Value Ref Range Sodium 131 (L) 135 - 145 mmol/L Potassium, pl 3.9 3.3 - 4.9 mmol/L Chloride 93 (L) 97 - 110 mmol/L CO2 29 22 - 32 mmol/L Anion gap 9 2 - 15 mmol/L BUN 14 6 - 25 mg/dL Creatinine 0.69 0.60 - 1.10 mg/dL Glucose 151 70 - 199 mg/dL Calcium 8.6 8.5 - 10.3 mg/dL Bilirubin, total 0.7 0.1 - 1.2 mg/dL Protein, pl 7.3 6.5 - 8.5 g/dL Albumin 2.7 (L) 3.5 - 5.0 g/dL Alk phos 307 (H) 40 - 130 Units/L ALT 5 (L) 7 - 45 Units/L AST 18 10 - 45 Units/L Magnesium Collection Time: 06/02/24 2:54 AM Result Value Ref Range Magnesium 2.0 1.4 - 2.5 mg/dL Phosphorus Collection Time: 06/02/24 2:54 AM Result Value Ref Range Phosphorus, pl 3.5 2.3 - 4.5 mg/dL Differential, auto Collection Time: 06/02/24 2:54 AM Result Value Ref Range Neutrophil abs 3.6 1.5 - 6.5 K/cumm Imm gran abs 0.1 0.0 - 0.1 K/cumm Lymphocyte abs 1.1 0.8 - 3.3 K/cumm Monocyte abs 0.7 0.2 - 0.8 K/cumm Eosinophil abs 0.1 0.0 - 0.5 K/cumm Basophil abs 0.1 0.0 - 0.1 K/cumm Neutrophil pct 63.0 % Imm gran pct 0.9 % Lymphocyte pct 20.0 % Monocyte pct 12.2 % Eosinophil pct 2.5 % Basophil pct 1.4 % eGFR Collection Time: 06/02/24 2:54 AM Result Value Ref Range eGFR >90 >=60 mL/min/1.73 m2 POCT glucose Collection Time: 06/02/24 6:38 AM Result Value Ref Range Glucose, POC 155 70 - 199 mg/dL POCT glucose Collection Time: 06/02/24 11:28 AM Result Value Ref Range Glucose, POC 151 70 - 199 mg/dL POCT glucose Collection Time: 06/02/24 4:13 PM Result Value Ref Range Glucose, POC 147 70 - 199 mg/dL ECG 12 lead Result Date: 05/30/2024 Narrative: Vent Rate: 109 bpm RR Interval: 548 msec HI Interval: 0 msec QRS Duration: 149 msec QT Interval: 398 msec QTC Interval: 462 msec P-R-T [place]: 0 - 96 - 89 degrees IMPRESSION: ATRIAL FIBRILLATION WITH RAPID VENTRICULAR RESPONSE BORDERLINE RIGHT AXIS DEVIATION [QRS AXIS > 90] INTRAVENTRICULAR CONDUCTION DELAY [130+ ms QRS DURATION] ABNORMAL ECG Unchanged compared to an EKG done earlier on May 30, 2024 Electronically Signed By: Dr. Shiloh Muhammad [facility] Chest WO Contrast Result Date: 05/30/2024 [...] Complete W Doppler/CF Result Date: 05/30/2024 Narrative: [place] [address] Echocardiogram Report Patient Name: LEI RODRIGUEZ V : 1960 Study Date: 05/30/2024 7:47:08 AM Gender: F Tech: Location: [place] [address] Ref Provider: TY MCFARLAND Height(Cm): 165 BSA: [...] 33.1 percent AV Mean PG 3 mmHg [id number] 5.71 [ 3.80 - 5.20 ] cm [...] Trivial pericardial effusion. Electronically Signed By: Coleen Kwok DO, RUBIO, ANDREE, MELISSA 2024-05-30 09:18:05 CDT [...] in the medical record on 05/30/2024 at [facility]. Electronically signed by: Abilio Post M.D. ECG 12 lead Result Date: 05/30/2024 Narrative: Vent Rate: 86 bpm RR Interval: 697 msec HI Interval: 0 msec QRS Duration: 145 msec QT Interval: 438 msec QTC Interval: 481 msec P-R-T [place]: 0 - 101 - 95 degrees IMPRESSION: ATRIAL FIBRILLATION RIGHT AXIS DEVIATION [QRS AXIS > 100] INTRAVENTRICULAR CONDUCTION DELAY [130+ ms QRS DURATION] ABNORMAL ECG Unchanged compared to 05/29/2021 Electronically Signed By: Dr. Shiloh Muhammad [facility] Chest PE (CTA) W Contrast Result Date: 05/30/2024 Narrative: EXAMINATION: CT CHEST PE (CTA) W CONTRAST HISTORY: Chest pain ORDER DATE: 05/30/2024 3:20AM TECHNIQUE: CT chest images were acquired using a chest angiographic protocol with 3-D imaging optimized for PE is obtained [id number] mL of Optiray 350 IV. 2D Coronal [...] findings as described above. Stat report by [facility] . Electronically signed by: Andrea Abernathy M.D. [...] and partially calcified bulging disc contributing to [id number]-pw-[id number] central spinal stenosis. Disc osteophyte complex also contributing to wqkp-[id number]-mahlxckj central spinal stenosis at C4-C5 level. No significant disc bulge or herniation. No severe spinal canal stenosis. Uncovertebral joint hypertrophy contributing to multilevel bilateral neural foraminal stenosis. Lungs: Lung apices are normal. Soft tissues: Unremarkable. Impression: No acute cervical spine injury. Stat report by [facility] Stat report by [facility] Electronically signed by: Andrea Abernathy M.D. CT [...] No acute intracranial findings. Stat report by [facility] Electronically signed by: Andrea Abernathy M.D. ECG 12 lead Result Date: 05/30/2024 Narrative: Vent Rate: 93 bpm RR Interval: 645 msec HI Interval: 0 msec QRS Duration: 97 msec QT Interval: 197 msec QTC Interval: 247 msec P-R-T [place]: 0 - 118 - 0 degrees IMPRESSION: [...] Electronically Signed By: Antonio Carlos MD Assessment/Plan Endocarditis: Continue ancef till 06/08. Blood cultures ngtd. ID and Cardiology Consulted. OSH bloodcx-records requested. Telemetry. D/w Dr. Mcfarland/ CTS/IR- no further evaluation for removal of possible wire fragment /catheter in pulm artery on CT chest as risks outweigh benefits. Acute on chronic Systolic CHF Troponins flat. Echo shows EF 30%. On IV lasix. Evidence of volume overload on CT chest. On Entresto, coreg. Neck pain Seem to be MSK. CT head/C spine no acute pathology. Flexeril x1. Chronic afib Continue coreg, dilt, and Xarelto, Tikosyn as per Cards DM Some elevated blood sugars on Lantus and SSI. Added scheduled Humalog .Increased lantus dose and scheduled Humalog dose on 05-31 as blood sugars elevated. Hypothyroidism On Synthroid JOSE Apparently was not using her NPPV at OSH, Defer BMI 47.22 DVT ppx: Xarelto MDM:Low Disposition:Possibly will complete antibiotics while at the hospital as per sister's request -PICC line/IV infusion not set up Expected Date of Discharge: 06-09 Barriers to Discharge:Completion of IV antibiotics These fluid and electrolyte abnormalities are being treated, evaluated or monitored: Hyperkalemia-resolved Hyponatremia-monitor * Chiqui Mendieta, PT - 06/02/2024 1:33 PM CDT Physical Therapy INITIAL EVALUATION PATIENT'S NAME:Lei Rodriguez :1960 AGE:63 y.o. ROOM:[place] [address] TIME IN: 1333 TIME OUT:1414 CURRENT DIAGNOSIS AND HOSPITAL COURSE: Endocarditis (63 yo female who presents from [facility] 05/29/2024 with abdominal pain . Initially she presented to [facility] 05/21/24 with N/V , diarrhea, abdominal pain. Workup revealed questionable endocarditis, hyponatremia, acute on chronic CHF with EF 30% , neck pain, a-fib with left atrial appendage clot finding and therefore no cardioversion attempted, dislodged catheter in pulmonary artery - no intervention planned - risks outweight benefits for treatment.) NOTED HX: a-fib, CHF, DM, GERD, HTN, intellectual disability, JOSE, overactive bladder, thyroid disease, AICD, PPM, refer to record for full medical hx. Patient Active Problem List Diagnosis Endocarditis SOB (shortness of breath) Acute on chronic systolic congestive heart failure (CMS/HCC) (HCC) Neck pain Hyponatremia Chronic a-fib (CMS/HCC) ([facility]) Type 2 diabetes mellitus, with long-term current use of insulin (HCC) Hypothyroid JOSE (obstructive sleep apnea) Diabetes mellitus with hyperglycemia (CMS/HCC) ([facility]) Past Medical History: Diagnosis Date A-fib (CMS/HCC) (HCC) CHF (congestive heart failure) (CMS/HCC) ([facility]) Diabetes mellitus (HCC) GERD (gastroesophageal reflux disease) Hypertension Intellectual disability OAB (overactive bladder) Sleep apnea Thyroid disease Past Surgical History: Procedure Laterality Date CARDIAC DEFIBRILLATOR PLACEMENT CHOLECYSTECTOMY INSERT / REPLACE / REMOVE PACEMAKER OTHER SURGICAL HISTORY 05/31/2024 CHANCE/CARDIOVERSION SUBJECTIVE (Sister on phone and supplements information.) LIVES WITH: alone LIVING ENVIRONMENT: 1-level house ; no basement; 1 step to enter. (1 step down into laundry room) PRIOR LEVEL OF FUNCTION: Indep with ADLs, indep with mobility using WW, Sister performs neurology epilepsy physician and drives patient. Sister assists with finances. Sister performs all IADLs, medications. Per sister, 'she has had a couple' of falls in the last 6 months. 'i like to use my activity coloring book, I like to play cards, and I like my phone, I like to watch TV.' Right handed. EQUIPMENT OWNED: tripod WW, shower chair, CPAP, Life Alert EQUIPMENT USED: tripod WW, shower chair SOCIAL SUPPORTS: sister checks on patient and does her house hold chores. Sister states, 'i'll mostly be there and my son lives next door to her' PATIENT/FAMILY GOAL: agrees to 'to get stronger' MENTAL STATUS/ORIENTATION: Alert and Oriented to person and year. OBJECTIVE PRECAUTIONS: high fall risk APPEARANCE/POSTURE: patient sitting at edge of bed, sister on phone. VITAL SIGNS: Resting BP: Post-activity BP: Resting heart rate: 80 Post-activity heart rate: 95 Resting O2 sat: 93% Post-activity O2 sat: 91% RA PAIN: Pre-therapy pain level: 'my back hurts a little bit' Pain location: Pain intervention: Post-therapy pain level/response to intervention: same pre and post. LE ASSESSMENTS: Right handed. Right LE ROM: AROM WFL Left LE ROM: AROM WFL Right LE strength: generally 4 to 4-/5 Left LE strength: generally 4 to 4-/5 Coordination: min impairment bilateral UE Tone: normal MOBILITY: Transfers: sit to/from stand and bed to chair with SBA using WW Ambulation: Distance: 150' Assistive device: rolling walker Level of assist: supervision Deviations: decreased step length, push-off and progressively increased amy throughout ambulation Stairs: Number of steps: not performed Assistive device: Level of assist: Balance/Special Tests: Static sitting balance: good Dynamic sitting balance: good Static standing balance: good supported Dynamic standing balance: AMPAC: Basic Mobility - 6 Click How much difficulty does the patient have: Turning over in bed: None How much difficulty does the patient currently have: Sitting down and standing up from a chair witharms?: None How much difficulty does the patient have: Moving from lying on back to sitting on the side of the bed?: None How much difficulty does the patient have: Moving to and from a bed to a chair including wheelchair?: None How much help does the patient currently need: Walk in hospital room?: A little How much help from another person does the patient currently need: Climbing 3-5 steps with a railing?: Total Total 6 Click Score (range 6-24): 20 6 click interpretation: AM-PAC 6 Click scores > 18 = Likely home discharge AM-PAC 6 Click scores < 18 = Likely require inpatient rehab or care home placement at discharge APPEARANCE/POSTURE (end of session): patient repositioned in chair with chair alarm activated and call light in reach. RN Veena given hand-off report. EDUCATION: role of PT evaluation RESPONSE TO EDUCATION: needs reinforcement ASSESSMENT PROBLEM LIST: pain, decreased LE strength , decreased mobility , decreased endurance, long standingdeficits , decreased independence with ADLs , impaired cognition, and medical complications BARRIERS TO LEARNING: Physical and Cognitive BARRIERS TO DISCHARGE: Medical complications REHAB POTENTIAL/PROGNOSIS: good PLAN PT Discharge Recommendations this date: PT Recommendation/Plan: Home with family, Home with 24 hour supervision, Home Health PT (Although per chart, potential SNF discharge for IV antibiotic treatment.) Treatment Plan/Interventions: acute PT to address above problem list. PT Frequency during current admission: Daily, 3-5x/wk Equipment Recommendations: none - patient already owns DME at home Multi-Disciplinary Problems (from Physical Therapy) Active Problems Problem: PT Misc Start Date: 06/02/24 Goal Start Date Expected End Date End Date PT LT - [facility] 1 06/02/24 06/09/24 -- Goal Details: Perform bed mobility with modified indep assist. Goal Start Date Expected End Date End Date PT [facility] - [facility] 2 06/02/24 06/09/24 -- Goal Details: Perform functional transfers with modified indep assist. Goal Start Date Expected End Date End Date PT [facility] - [facility] 3 06/02/24 06/09/24 -- Goal Details: Gait 150' with WW with modified indep assist. Goal Start Date Expected End Date End Date PT [facility] - [facility] 4 06/02/24 06/09/24 -- Goal Details: Perform 1 step with modified indep assist. Goal Start Date Expected End Date End Date PT [facility] - [facility] 5 06/02/24 06/09/24 -- Goal Details: Perform LE HEP with SBA Refer to multi-disciplinary care plan section for PT specific goals. If this is the last note, please consider this the discharge summary. * Jagdeep Wagoner NP - 06/02/2024 11:40 AM CDT Infectious Disease Progress Note Lei Rodriguez Age: 63 y.o. Admit Date: 05/29/2024 Today's Date: 06/02/2024 Length of Stay: 4 Reason for consult: MSSA bacteremia/Suspected endocarditis Subjective: Afebrile No leukocytosis Patient is asleep in bed Breathing regular and unlabored In no distress on room air RN reports patient has been eating ok No new changes ROS: See Subjective section above Anti-infectives (From admission, onward) Start Dose/Rate Route Frequency Ordered Stop 05/29/24 2245 ceFAZolin (ANCEF) 2,000 mg/100 mL in dextrose (premix) 2,000 mg 2,000 mg 200 mL/hr over 30 Minutes intravenous Every 8 hours scheduled 05/29/24 2201 Objective: Vitals: 24hr Min/Max: Temp Min: 36.6 ??C (97.9 ??F) Max: 37.1 ??C (98.7 ??F) Pulse Min: 85 Max: 100 BP Min: 87/56 Max: 144/77 Resp Min: 18 Max: 28 SpO2 Min: 90 % Max: 95 % Most Recent : Vitals: 06/01/24201306/02/24 0024 06/02/24 0434 06/02/24 0804 BP: 144/77 113/67 136/71 (!) 87/56 BP Location: Left arm Left arm Left arm Right arm Patient Position: Lying Lying Lying Sitting Pulse: 87 85 90 100 Resp: 19 19 19 28 Temp: 36.8 ??C (98.3 ??F) 36.6 ??C (97.9 ??F) 36.8 ??C (98.2 ??F) 36.8 ??C (98.2 ??F) TempSrc: Oral Oral Oral Oral SpO2: 95% 95% 95% 93% Weight: Height: Physical Exam: General appearance: no distress Lungs: breath sounds clear bilaterally, normal WOB Heart: regular rhythm, normal S1 and S2 Abdomen: soft without mass, non-tender, +bowel sounds Extremities: no gross deformities Skin: no new rashes, no ulcerations Vascular: no edema, pulses present bilaterally Neuro: asleep Recent Labs Lab Units 06/02/24 0254 06/01/24 0449 05/31/24 0305 WBC K/cumm 5.6 7.0 7.9 HEMOGLOBIN g/dL 11.5* 11.5* 11.9 HEMATOCRIT % 35.9 36.0 37.0 PLATELETS K/cumm 351 337 309 Recent Labs Lab Units 06/02/24 0254 06/01/24 0449 05/31/24 0305 BUN SERUM mg/dL 14 13 14 CREATININE mg/dL 0.69 0.67 0.69 Lab Results Component Value Date ALT 5 (L) 06/02/2024 AST 18 06/02/2024 ALKPHOS 307 (H) 06/02/2024 BILITOT 0.7 06/02/2024 Lab/Radiology/Diagnostic Review: 05/30 blood cultures: no growth to date OSH Microbiology: 05/21 blood cultures MSSA 05/22 blood cultures MSSA OSH ECHO reportedly with Tricuspid valve vegetation 06/01 CT A/P W: 1. Mosaic attenuation in the lung bases suggestive of interstitial pulmonary edema. 2. Diffuse hepatic steatosis. 3. Small hiatal hernia. 4. Trace left pleural effusion. 5. Additional chronic or incidental findings as above. 05/30 CT Chest WO: 1. Redemonstrated curvilinear radiopaque density extending from the proximal right lower lobe pulmonary artery into a subsegmental lateral basilar branch favors a catheter or wire fragment. 2. Findings most suggestive of heart failure with cardiomegaly, small volume pericardial effusion, and small bilateral pleural effusions and mild pulmonary edema. 05/30 CT Chest PE W: 1. Motion degraded evaluation of the pulmonary [...] LFTs. 5. Additional findings as described above. 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 Hutchinson - Cardiology following - Monitor fever curve and WBC - Supportive care Jagdeep Wagoner NP [place] [facility] Office: [phone] 06/02/2024 Cosigned by Manuel Ludwig MD at 06/09/2024 1:00 PM CDT * Russell Cifuentes MD - 06/02/2024 11:18 AM CDT Cardiology Progress note SUBJECTIVE: Ms. Rodriguez Doing ok INTERIM CHANGE PAST 24 HOURS: improved Full ROS negative except OBJECTIVE: Vitals: 06/01/24201306/02/24 0024 06/02/24 0434 06/02/24 0804 BP: 144/77 113/67 136/71 (!) 87/56 BP Location: Left arm Left arm Left arm Right arm Patient Position: Lying Lying Lying Sitting Pulse: 87 85 90 100 Resp: 19 19 19 28 Temp: 36.8 ??C (98.3 ??F) 36.6 ??C (97.9 ??F) 36.8 ??C (98.2 ??F) 36.8 ??C (98.2 ??F) TempSrc: Oral Oral Oral Oral SpO2: 95% 95% 95% 93% Weight: Height: I/O last 2 completed shifts: In: 710 [P.O.:500; I.V.:10; IV Piggyback:200] Out: - No intake/output data recorded. General: in no apparent distress Neuro: Alert and oriented x 3, moves all extremities well HEENT: normocephalic, atraumatic, thyroid not enlarged. I do not appreciate JVD. Neck: There are nocarotid bruits. Lungs: symmetric, unlabored, clear to auscultation bilaterally Heart: S1,S2, irregular rate & rhythm, no murmurs, rubs, or gallops Abdomen: soft, non-tender, non-distended, bowel sounds present Extremities: no LE edema, palpable peripheral pulses BL Neurologic: No focal deficits LABS: Recent Results (from the past 48 hour(s)) POCT glucose Collection Time: 05/31/24 4:47 PM Result Value Ref Range Glucose, POC 203 (H) 70 - 199 mg/dL POCT glucose Collection Time: 05/31/24 8:36 PM Result Value Ref Range Glucose, POC 270 (H) 70 - 199 mg/dL CBC with auto differential Collection Time: 06/01/24 4:49 AM Result Value Ref Range WBC 7.0 3.8 - 9.9 K/cumm Hgb 11.5 (L) 11.9 - 15.5 g/dL Hct 36.0 35.6 - 45.5 % Plt 337 150 - 400 K/cumm MPV 9.2 9.1 - 12.3 fL RBC 3.48 (L) 3.90 - 5.20 M/cumm MCV 103.4 (H) 81.3 - 96.4 fL MCH 33.0 27.1 - 33.3 pg MCHC 31.9 (L) 32.3 - 35.7 g/dL RDW CV 13.9 11.1 - 14.9 % RDW SD 52.4 (H) 35.7 - 48.1 fL NRBC abs 0.00 0.00 - 0.01 K/cumm Comprehensive metabolic panel Collection Time: 06/01/24 4:49 AM Result Value Ref Range Sodium 131 (L) 135 - 145 mmol/L Potassium, pl 3.8 3.3 - 4.9 mmol/L Chloride 93 (L) 97 - 110 mmol/L CO2 29 22 - 32 mmol/L Anion gap 9 2 - 15 mmol/L BUN 13 6 - 25 mg/dL Creatinine 0.67 0.60 - 1.10 mg/dL Glucose 111 70 - 199 mg/dL Calcium 8.6 8.5 - 10.3 mg/dL Bilirubin, total 0.9 0.1 - 1.2 mg/dL Protein, pl 7.2 6.5 - 8.5 g/dL Albumin 2.7 (L) 3.5 - 5.0 g/dL Alk phos 330 (H) 40 - 130 Units/L ALT 5 (L) 7 - 45 Units/L AST 20 10 - 45 Units/L Magnesium Collection Time: 06/01/24 4:49 AM Result Value Ref Range Magnesium 2.0 1.4 - 2.5 mg/dL Phosphorus Collection Time: 06/01/24 4:49 AM Result Value Ref Range Phosphorus, pl 3.1 2.3 - 4.5 mg/dL Differential, auto Collection Time: 06/01/24 4:49 AM Result Value Ref Range Neutrophil abs 4.8 1.5 - 6.5 K/cumm Imm gran abs 0.1 0.0 - 0.1 K/cumm Lymphocyte abs 1.3 0.8 - 3.3 K/cumm Monocyte abs 0.7 0.2 - 0.8 K/cumm Eosinophil abs 0.2 0.0 - 0.5 K/cumm Basophil abs 0.1 0.0 - 0.1 K/cumm Neutrophil pct 67.6 % Imm gran pct 0.9 % Lymphocyte pct 18.5 % Monocyte pct 9.3 % Eosinophil pct 2.6 % Basophil pct 1.1 % eGFR Collection Time: 06/01/24 4:49 AM Result Value Ref Range eGFR >90 >=60 mL/min/1.73 m2 POCT glucose Collection Time: 06/01/24 6:50 AM Result Value Ref Range Glucose, POC 121 70 - 199 mg/dL POCT glucose Collection Time: 06/01/24 11:40 AM Result Value Ref Range Glucose, POC 160 70 - 199 mg/dL POCT glucose Collection Time: 06/01/24 4:54 PM Result Value Ref Range Glucose, POC 128 70 - 199 mg/dL POCT glucose Collection Time: 06/01/24 10:00 PM Result Value Ref Range Glucose, POC 205 (H) 70 - 199 mg/dL POCT glucose Collection Time: 06/02/24 2:40 AM Result Value Ref Range Glucose, POC 137 70 - 199 mg/dL CBC with auto differential Collection Time: 06/02/24 2:54 AM Result Value Ref Range WBC 5.6 3.8 - 9.9 K/cumm Hgb 11.5 (L) 11.9 - 15.5 g/dL Hct 35.9 35.6 - 45.5 % Plt 351 150 - 400 K/cumm MPV 9.3 9.1 - 12.3 fL RBC 3.54 (L) 3.90 - 5.20 M/cumm MCV 101.4 (H) 81.3 - 96.4 fL MCH 32.5 27.1 - 33.3 pg MCHC 32.0 (L) 32.3 - 35.7 g/dL RDW CV 13.7 11.1 - 14.9 % RDW SD 51.3 (H) 35.7 - 48.1 fL NRBC abs 0.00 0.00 - 0.01 K/cumm Comprehensive metabolic panel Collection Time: 06/02/24 2:54 AM Result Value Ref Range Sodium 131 (L) 135 - 145 mmol/L Potassium, pl 3.9 3.3 - 4.9 mmol/L Chloride 93 (L) 97 - 110 mmol/L CO2 29 22 - 32 mmol/L Anion gap 9 2 - 15 mmol/L BUN 14 6 - 25 mg/dL Creatinine 0.69 0.60 - 1.10 mg/dL Glucose 151 70 - 199 mg/dL Calcium 8.6 8.5 - 10.3 mg/dL Bilirubin, total 0.7 0.1 - 1.2 mg/dL Protein, pl 7.3 6.5 - 8.5 g/dL Albumin 2.7 (L) 3.5 - 5.0 g/dL Alk phos 307 (H) 40 - 130 Units/L ALT 5 (L) 7 - 45 Units/L AST 18 10 - 45 Units/L Magnesium Collection Time: 06/02/24 2:54 AM Result Value Ref Range Magnesium 2.0 1.4 - 2.5 mg/dL Phosphorus Collection Time: 06/02/24 2:54 AM Result Value Ref Range Phosphorus, pl 3.5 2.3 - 4.5 mg/dL Differential, auto Collection Time: 06/02/24 2:54 AM Result Value Ref Range Neutrophil abs 3.6 1.5 - 6.5 K/cumm Imm gran abs 0.1 0.0 - 0.1 K/cumm Lymphocyte abs 1.1 0.8 - 3.3 K/cumm Monocyte abs 0.7 0.2 - 0.8 K/cumm Eosinophil abs 0.1 0.0 - 0.5 K/cumm Basophil abs 0.1 0.0 - 0.1 K/cumm Neutrophil pct 63.0 % Imm gran pct 0.9 % Lymphocyte pct 20.0 % Monocyte pct 12.2 % Eosinophil pct 2.5 % Basophil pct 1.4 % eGFR Collection Time: 06/02/24 2:54 AM Result Value Ref Range eGFR >90 >=60 mL/min/1.73 m2 POCT glucose Collection Time: 06/02/24 6:38 AM Result Value Ref Range Glucose, POC 155 70 - 199 mg/dL RADIOLOGY: ECG 12 lead Result Date: 06/02/2024 Narrative: Vent Rate: 76 bpm RR Interval: 782 msec HI Interval: 0 msec QRS Duration: 158 msec QT Interval: 494 msec QTC Interval: 525 msec P-R-T [place]: 0 - 116 - 120 degrees IMPRESSION: [...] Rate: 102 bpm RR Interval: 584 msec HI Interval: 0 msec QRS Duration: 149 msec QT Interval: 387 msec QTC Interval: 446 msec P-R-T [place]: 0 - 115 - 66 degrees IMPRESSION: ATRIAL FIBRILLATION WITH RAPID VENTRICULAR RESPONSE WITH ABERRANT CONDUCTION OR VENTRICULAR PREMATURE COMPLEXES INDETERMINATE AXIS INTRAVENTRICULAR CONDUCTION DELAY [130+ ms QRS DURATION] ABNORMAL ECG NO CHANGE FROM PREVIOUS TRACING NOTED Electronically Signed By: Antonio Carlos MD ECG 12 lead Result Date: 06/01/2024 Narrative: Vent Rate: 83 bpm RR Interval: 716 msec HI Interval: 0 msec QRS Duration: 154 msec QT Interval: 409 msec QTC Interval: 449 msec P-R-T [place]: 0 - 123 - 189 degrees IMPRESSION: ATRIAL FIBRILLATION INTRAVENTRICULAR CONDUCTION DELAY LATERAL MYOCARDIAL INFARCTION , OF INDETERMINATE AGE Electronically Signed By: Cristino Kingsley MD, [facility] ECG 12 lead Result Date: 05/31/2024 Narrative: Vent Rate: 74 bpm RR Interval: 810 msec HI Interval: 0 msec QRS Duration: 151 msec QT Interval: 449 msec QTC Interval: 476 msec P-R-T [place]: 0 - 102 - 146 degrees IMPRESSION: VENTRICULAR PACED RHYTHM Electronically Signed By: rCistino Kingsley MD, [facility] ECG 12 lead Result Date: 05/31/2024 Narrative: Vent Rate: 76 bpm RR Interval: 785 msec HI Interval: 0 msec QRS Duration: 150 msec QT Interval: 471 msec QTC Interval: 501 msec P-R-T [place]: 0 - 80 - 97 degrees IMPRESSION: ATRIAL FIBRILLATION WITH ABERRANT CONDUCTION OR VENTRICULAR PREMATURE COMPLEXES INTRAVENTRICULAR CONDUCTION DELAY [130+ ms QRS DURATION] ABNORMAL ECG Electronically Signed By: Dr. Shiloh Muhammad [facility] ECG 12 lead Result Date: 05/30/2024 Narrative: Vent Rate: 109 bpm RR Interval: 548 msec HI Interval: 0 msec QRS Duration: 149 msec QT Interval: 398 msec QTC Interval: 462 msec P-R-T [place]: 0 - 96 - 89 degrees IMPRESSION: ATRIAL FIBRILLATION WITH RAPID VENTRICULAR RESPONSE BORDERLINE RIGHT AXIS DEVIATION [QRS AXIS > 90] INTRAVENTRICULAR CONDUCTION DELAY [130+ ms QRS DURATION] ABNORMAL ECG Unchanged compared to an EKG done earlier on May 30, 2024 Electronically Signed By: Dr. Shiloh Muhammad [facility] CT Chest WO Contrast Result Date: 05/30/2024 [...] Complete W Doppler/CF Result Date: 05/30/2024 Narrative: [place] [address] Echocardiogram Report Patient Name: LEI RODRIGUEZ V : 1960 Study Date: 05/30/2024 7:47:08 AM Gender: F Tech: GUILHERME Location: [id number] Ref Provider: TY MCFARLAND Height(Cm): 165 BSA: [...] Trivial pericardial effusion. Electronically Signed By: Coleen Kwok DO, RUBIO, ANDREE, MELISSA 2024-05-30 09:18:05 CDT [...] Rate: 86 bpm RR Interval: 697 msec HI Interval: 0 msec QRS Duration: 145 msec QT Interval: 438 msec QTC Interval: 481 msec P-R-T [place]: 0 - 101 - 95 degrees IMPRESSION: ATRIAL FIBRILLATION RIGHT AXIS DEVIATION [QRS AXIS > 100] INTRAVENTRICULAR CONDUCTION DELAY [130+ ms QRS DURATION] ABNORMAL ECG Unchanged compared to 05/29/2021 Electronically Signed By: Dr. Shiloh Muhammad [facility] CT Chest PE (CTA) W Contrast Result [...] findings as described above. Stat report by [facility] . Electronically signed by: Andrea Abernathy M.D. [...] and partially calcified bulging disc contributing to ciot-zo-rjpjuhog central spinal stenosis. Disc osteophyte complex also contributing to ehje-vu-hggareak central spinal stenosis at C4-C5 level. No significant disc bulge or herniation. No severe spinal canal stenosis. Uncovertebral joint hypertrophy contributing to multilevel bilateral neural foraminal stenosis. Lungs: Lung apices are normal. Soft tissues: Unremarkable. Impression: No acute cervical spine injury. Stat report by [facility] Stat report by [facility] Electronically signed by: Andrea Abernathy M.D. CT [...] No acute intracranial findings. Stat report by [facility] Electronically signed by: Andrea Abernathy M.D. ECG 12 lead Result Date: 05/30/2024 Narrative: Vent Rate: 93 bpm RR Interval: 645 msec HI Interval: 0 msec QRS Duration: 97 msec QT Interval: 197 msec QTC Interval: 247 msec P-R-T [place]: 0 - 118 - 0 degrees IMPRESSION: [...] ECG Electronically Signed By: Antonio Carlos MD EKG: Results for orders placed during the hospital encounter of 05/29/24 ECG 12 lead Narrative Vent Rate: 76 bpm RR Interval: 782 msec HI Interval: 0 msec QRS Duration: 158 msec QT Interval: 494 msec QTC Interval: 525 msec P-R-T [place]: 0 - 116 - 120 degrees IMPRESSION: ATRIAL FIBRILLATION WITH demand ventricular pacemaker MARKED RIGHT AXIS DEVIATION [QRS AXIS > 100] INTRAVENTRICULAR CONDUCTION DELAY [130+ ms QRS DURATION] ABNORMAL ECG Compared to prior EKG, demand ventricular pacing is new Electronically Signed By: Antonio Carlos MD ASSESSMENT/PLAN: 1. Questionable endocarditis -no vegetations seen on CHANCE -continue therapy per Infectious Disease Atrial fibrillation -CHANCE discovered left atrial appendage clot therefore no cardioversion was attempted -Tikosyn loading has been started, QTC is actually shorter than prior to starting the Tikosyn -she remains in AFib on telemetry and on exam with fairly well-controlled rate Dislodged catheter -in pulmonary artery -seen on both CT scan and CHANCE Acute on chronic congestive heart failure -clinically compensated at this time -EF 30% by echo Neck pain -source unclear Diabetes type 2 -per hospitalist Hypothyroid -treated Russell Cifuentes MD [facility] 06/02/2024 11:18 AM * Elly Julian MD - 06/01/2024 8:45 PM CDT Daily Progress Chief complaint:Abdominal pain Subjective: Patient lying in bed, d/w ID, attempt to get culture results from Ernie as per ID, CT abdomen/pelvis no evidence of source of infection, still has volume overload, continue IV lasix Interval History: As per HPI-Ms Lei Rodriguez is a 63 y.o. female with history of afib, CHF, DM, GERD,HTN, Intellectual disability, OAB, JOSE, thyroid disease, AICD, PPM, Cholecystectomy. Presented to [facility] on with nausea, vomiting, diarrhea, and abdominal pain. Livesat home with her sister. Limited historian due to intellectual disability. She was ultimately found to have endocarditis. Persistent positive blood cultures for staph aureus. ED put on vanc, zosyn, and IVF initially Now on Ancef at transfer Currently complains of right neck pain radiating to her right ear. Pain also on right mastoid. No hearing change, tinnitus, or hearing loss. She has been a little SOB on laying down for the past few days. No chest pain, pressure, or discomfort. Admit eval: Hyponatremia to 122 17% PMN with normal WBC. Plt 109 Cr 1 --> 0.7 Bili 2.4 AST 127 ALT 85 Alk selvin 159 CXR mild edema with trace pleural effuion and cardiomegaly CT a/p: Small hiatal hernia UA without UTI. 3+ glucose, 1+ ketones, 1+ blood. 0-2 RBC and 0-5 WBC. Negative FLU, RSV, COVID EKbpm afib LBBB 4/4 blood cx positive staph aureus Echo: EF 40-45% Mod LAE. JOSEPH TV vegetation at 2mm not clearly involving the AICD. CHANCE: LAE. Small central MR. 2mm TV vegetation mobile and prolapses into the right atrium in systole Most recent labs 05/20 INR 3.9 PTT 50 05/28 WBC 13.3, Hgb 12.4, PLT 258, 74% PMN. 05/28: NA 131. Cr 0.5 AST 45 ALT 21 AP 434 CRP elevated 31.1 OSH imaging (final reads below): C spine 05/21 No acute fx or traumatic malalignment. No severe central canal or neural foraminal narrowing HCT 05/21 No acute intracranial process CXR 05/21 Mild pulmonary edema and trace pleural effusion. Cardiomegaly CT abdomen/pelvis 05/21 Small sliding hiatal hernia Abdominal ultrasound Normal RUQ u/S post luz 05-30:Patient sitting up in a chair, d/w Dr. Mcfarland, requested CT chest which shows possible catheter or wire fragment, CTS to evaluate in a.m., advanced diet 05-31:Patient lying in bed, d/w Dr. Mcfarland-cleared from cards standpoint, EKG stable on Tikosyn-continue current dose as per EP, d/w Dr. Justyn COOK -no surgical intervention planned for small wire/fragment in pulm artery, d/w Dr. Abernathy-IR retrieval not possible, d/w ID-await final antibiotic recs Review of Systems Gen: No fever, No chills, CV: No chest pain Resp: No SOB GI: No nausea, No vomiting, abdominal pain controlled Objective: Vitals: 24hr Min/Max: Temp Min: 36.4 ??C (97.5 ??F) Max: 37.3 ??C (99.1 ??F) Pulse Min: 72 Max: 91 BP Min: 105/91 Max: 144/77 Resp Min: 18 Max: 19 SpO2 Min: 90 % Max: 95 % Most Recent : Vitals: 06/01/24 0700 06/01/24 1100 06/01/24 1500 06/01/242013 BP: 120/78 115/68 106/65 144/77 BP Location: Left arm Left arm Left arm Left arm Patient Position: Lying Lying Lying Lying Pulse: 87 91 91 87 Resp: 18 18 18 19 Temp: 37.1 ??C (98.7 ??F) 37 ??C (98.6 ??F) 37.1 ??C (98.7 ??F) 36.8 ??C (98.3 ??F) TempSrc: Oral Oral Oral Oral SpO2: 92% 90% 91% 95% Weight: Height: Physical Exam: Gen:Well built female Lungs:Symmetrical breath sounds b/l Heart:S1,S2 heard Abdomen:Soft, NT, BS+ Extremities:No edema b/l LE Neuro:Awake, alert, answers questions Lab/Radiology/Diagnostic Review: Recent Results (from the past 24 hour(s)) CBC with auto differential Collection Time: 06/01/24 4:49 AM Result Value Ref Range WBC 7.0 3.8 - 9.9 K/cumm Hgb 11.5 (L) 11.9 - 15.5 g/dL Hct 36.0 35.6 - 45.5 % Plt 337 150 - 400 K/cumm MPV 9.2 9.1 - 12.3 fL RBC 3.48 (L) 3.90 - 5.20 M/cumm MCV 103.4 (H) 81.3 - 96.4 fL MCH 33.0 27.1 - 33.3 pg MCHC 31.9 (L) 32.3 - 35.7 g/dL RDW CV 13.9 11.1 - 14.9 % RDW SD 52.4 (H) 35.7 - 48.1 fL NRBC abs 0.00 0.00 - 0.01 K/cumm Comprehensive metabolic panel Collection Time: 06/01/24 4:49 AM Result Value Ref Range Sodium 131 (L) 135 - 145 mmol/L Potassium, pl 3.8 3.3 - 4.9 mmol/L Chloride 93 (L) 97 - 110 mmol/L CO2 29 22 - 32 mmol/L Anion gap 9 2 - 15 mmol/L BUN 13 6 - 25 mg/dL Creatinine 0.67 0.60 - 1.10 mg/dL Glucose 111 70 - 199 mg/dL Calcium 8.6 8.5 - 10.3 mg/dL Bilirubin, total 0.9 0.1 - 1.2 mg/dL Protein, pl 7.2 6.5 - 8.5 g/dL Albumin 2.7 (L) 3.5 - 5.0 g/dL Alk phos 330 (H) 40 - 130 Units/L ALT 5 (L) 7 - 45 Units/L AST 20 10 - 45 Units/L Magnesium Collection Time: 06/01/24 4:49 AM Result Value Ref Range Magnesium 2.0 1.4 - 2.5 mg/dL Phosphorus Collection Time: 06/01/24 4:49 AM Result Value Ref Range Phosphorus, pl 3.1 2.3 - 4.5 mg/dL Differential, auto Collection Time: 06/01/24 4:49 AM Result Value Ref Range Neutrophil abs 4.8 1.5 - 6.5 K/cumm Imm gran abs 0.1 0.0 - 0.1 K/cumm Lymphocyte abs 1.3 0.8 - 3.3 K/cumm Monocyte abs 0.7 0.2 - 0.8 K/cumm Eosinophil abs 0.2 0.0 - 0.5 K/cumm Basophil abs 0.1 0.0 - 0.1 K/cumm Neutrophil pct 67.6 % Imm gran pct 0.9 % Lymphocyte pct 18.5 % Monocyte pct 9.3 % Eosinophil pct 2.6 % Basophil pct 1.1 % eGFR Collection Time: 06/01/24 4:49 AM Result Value Ref Range eGFR >90 >=60 mL/min/1.73 m2 POCT glucose Collection Time: 06/01/24 6:50 AM Result Value Ref Range Glucose, POC 121 70 - 199 mg/dL POCT glucose Collection Time: 06/01/24 11:40 AM Result Value Ref Range Glucose, POC 160 70 - 199 mg/dL POCT glucose Collection Time: 06/01/24 4:54 PM Result Value Ref Range Glucose, POC 128 70 - 199 mg/dL ECG 12 lead Result Date: 05/30/2024 Narrative: Vent Rate: 109 bpm RR Interval: 548 msec HI Interval: 0 msec QRS Duration: 149 msec QT Interval: 398 msec QTC Interval: 462 msec P-R-T [place]: 0 - 96 - 89 degrees IMPRESSION: ATRIAL FIBRILLATION WITH RAPID VENTRICULAR RESPONSE BORDERLINE RIGHT AXIS DEVIATION [QRS AXIS > 90] INTRAVENTRICULAR CONDUCTION DELAY [130+ ms QRS DURATION] ABNORMAL ECG Unchanged compared to an EKG done earlier on May 30, 2024 Electronically Signed By: Dr. Shiloh Muhammad [facility] CT Chest WO Contrast Result Date: 05/30/2024 [...] Complete W Doppler/CF Result Date: 05/30/2024 Narrative: [place] [address] Echocardiogram Report Patient Name: LEI RODRIGUEZ V : 1960 Study Date: 05/30/2024 7:47:08 AM Gender: F Tech: GUILHERME Location: [id number] Ref Provider: TY MCFARLAND Height(Cm): 165 BSA: [...] 33.1 percent AV Mean PG 3 mmHg [id number] 5.71 [ 3.80 - 5.20 ] cm [...] Trivial pericardial effusion. Electronically Signed By: Coleen Kwok, DO, FACC, FASE, FASNC 2024-05-30 09:18:05 CDT CC: CC: CC: XR [...] Rate: 86 bpm RR Interval: 697 msec HI Interval: 0 msec QRS Duration: 145 msec QT Interval: 438 msec QTC Interval: 481 msec P-R-T [place]: 0 - 101 - 95 degrees IMPRESSION: ATRIAL FIBRILLATION RIGHT AXIS DEVIATION [QRS AXIS > 100] INTRAVENTRICULAR CONDUCTION DELAY [130+ ms QRS DURATION] ABNORMAL ECG Unchanged compared to 05/29/2021 Electronically Signed By: Dr. Shiloh Muhammad [facility] CT Chest PE (CTA) W Contrast Result Date: 05/30/2024 Narrative: EXAMINATION: CT CHEST PE (CTA) W CONTRAST HISTORY: Chest pain ORDER DATE: 05/30/2024 3:20AM TECHNIQUE: CT chest images were acquired using a chest angiographic protocol with 3-D imaging optimized for PE is obtained [id number] mL of Optiray 350 IV. 2D Coronal [...] findings as described above. Stat report by [facility] . Electronically signed by: Andrea Abernathy M.D. [...] and partially calcified bulging disc contributing to [id number] central spinal stenosis. Disc osteophyte complex also contributing to [id number] central spinal stenosis at C4-C5 level. No significant disc bulge or herniation. No severe spinal canal stenosis. Uncovertebral joint hypertrophy contributing to multilevel bilateral neural foraminal stenosis. Lungs: Lung apices are normal. Soft tissues: Unremarkable. Impression: No acute cervical spine injury. Stat report by [facility] Stat report by [facility] Electronically signed by: Andrea Abernathy M.D. CT [...] No acute intracranial findings. Stat report by [facility] Electronically signed by: Andrea Abernathy M.D. ECG 12 lead Result Date: 05/30/2024 Narrative: Vent Rate: 93 bpm RR Interval: 645 msec HI Interval: 0 msec QRS Duration: 97 msec QT Interval: 197 msec QTC Interval: 247 msec P-R-T [place]: 0 - 118 - 0 degrees IMPRESSION: [...] Electronically Signed By: Antonio Carlos MD Assessment/Plan Endocarditis: Continue ancef till 06/08. Blood cultures ngtd. ID and Cardiology Consulted. OSH bloodcx-records requested. Telemetry. D/w Dr. Mcfarland/ CTS/IR- no further evaluation for removal of possible wire fragment /catheter in pulm artery on CT chest as risks outweigh benefits. Acute on chronic Systolic CHF Troponins flat. Echo shows EF 30%. On IV lasix. Evidence of volume overload on CT chest. On Entresto, coreg. Neck pain Seem to be MSK. CT head/C spine no acute pathology. Chronic afib Continue coreg, dilt, and Xarelto, Tikosyn as per Cards DM Some elevated blood sugars on Lantus and SSI. Added scheduled Humalog .Increased lantus dose and scheduled Humalog dose on 05-31 as blood sugars elevated. Hypothyroidism On Synthroid JOSE Apparently was not using her NPPV at OSH, Defer BMI 47.22 DVT ppx: Xarelto MDM:Mod Disposition:Possibly home with sister if sister comfortable with antibiotic infusion Expected Date of Discharge:Await IV antibiotic set up and family member training, d/w onsite case manager Barriers to Discharge:As above, PICC line placement-requested These fluid and electrolyte abnormalities are being treated, evaluated or monitored: Hyperkalemia-resolved Hyponatremia-monitor * Maegan Xavier, PT - 06/01/2024 1:33 PM CDT Physical Therapy Patient unavailable for acute Physical Therapy evaluation. Patient off unit to CT scan for CT of abdomen pelvis. Will attempt PT evaluation at a later time when patient is available and willing to participate. Maegan Xavier, PT 06/01/24 1:34 PM * Eben Pettit MD - 06/01/2024 12:24 PM CDT Infectious Disease Consult Consulting Physician: Eben Pettit MD. Reason for consult: MSSA bacteremia/Suspected endocarditis tricuspid valve. Review of systems/interval history. Afebrile Normal WBC count Sitting up in chair No new complaints. Objective: Vitals: 24hr Min/Max: Temp Min: 36.4 ??C (97.5 ??F) Max: 37.3 ??C (99.1 ??F) Pulse Min: 72 Max: 91 BP Min: 105/91 Max: 144/54 Resp Min: 18 Max: 20 SpO2 Min: 90 % Max: 95 % Most Recent : Vitals: 06/01/24 0016 06/01/24 0523 06/01/24 0700 06/01/24 1100 BP: 105/91 106/49 120/78 115/68 BP Location: Right arm Right arm Left arm Left arm Patient Position: Lying Lying Lying Lying Pulse: 72 77 87 91 Resp: 18 18 18 18 Temp: 36.4 ??C (97.5 ??F) 36.7 ??C (98.1 ??F) 37.1 ??C (98.7 ??F) 37 ??C (98.6 ??F) TempSrc: Axillary Axillary Oral Oral SpO2: 95% 94% 92% 90% Weight: Height: Physical Exam: General appearance: alert, cooperative, no distress HEENT: (-)icterus, Oropharnyx is normal, NCAT Neck: No palpable LN Lungs: breath sounds normal and symmetric; minimal respiratory effort, no r/w/c Heart: regular rhythm, normal S1 and S2, no m/r/g Abdomen: soft without mass, non-tender, +bowel sounds, no HSM Extremities/Skin: no gross deformities, FROM, no new rashes, no ulcerations Vascular: no Edema, pulses present bilaterally Neuro: No focal deficits Psych: Appropriate mood and affect , intellectual disability Labs Reviewed. Recent Labs Lab Units 06/01/24 0449 05/31/24 0305 05/30/24 0935 WBC K/cumm 7.0 7.9 10.6* HEMOGLOBIN g/dL 11.5* 11.9 11.7* HEMATOCRIT % 36.0 37.0 36.2 PLATELETS K/cumm 337 309 309 Recent Labs Lab Units 06/01/24 0449 05/31/24 0305 05/30/24 0428 BUN SERUM mg/dL 13 14 10 CREATININE mg/dL 0.67 0.69 0.74 Lab Results Component Value Date ALT 5 (L) 06/01/2024 AST 20 06/01/2024 ALKPHOS 330 (H) 06/01/2024 BILITOT 0.9 06/01/2024 Cultures Blood cultures 05/30 no growth so far Outside hospital 01/11 blood cultures reported to be positive for Staph aureus MSSA. From 05/21 and 05/22. [facility] echo reported as Tricuspid valve vegetation. CT chest noncontrast. 05/30 IMPRESSION: 1. Redemonstrated curvilinear radiopaque density extending from the proximal right lower lobe pulmonary artery into a subsegmental lateral basilar branch favors a catheter or wire fragment. 2. Findings most suggestive of heart failure with cardiomegaly, small volume pericardial effusion, and small bilateral pleural effusions and mild pulmonary edema. CT chest PE protocol 05/30 IMPRESSION: 1. Motion degraded evaluation of the pulmonary [...] LFTs. 5. Additional findings as described above. Assessment: MSSA bacteremia ? Suspected tricuspid valve endocarditis Documented at outside hospital, unknown date so far will follow-up with [facility]. 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. She underwent CHANCE, with no visible valve vegetation. Repeat blood cultures 05/30 remain no growth so far. She has AICD in place. ? Dislodged catheter/lead.. PA Atrial fibrillation CHF GERD Hypertension Obstructive sleep apnea Thyroid disease Intellectual disability Plan: Discussed with Dr. Neli Hutchinson, no vegetation seen on tricuspid valve. There is a dislodged lead/catheter, In Pulmonary artery, which is also reported in CT. There was a clot in MAULIK, probably an appendage clot, hence synchronized Cardioversion was canceled. Continue on Ancef for now Follow up on blood cultures. Monitor fever curve and WBC count. Called microlab [facility] blood cultures 05/25 NG. Apparently blood cultures were positive for Staph aureus 05/21 and 05/22 requested fax from [facility]. They could not tell methe susceptibilities. For H&P reported oxacillin susceptible Staph aureus. Will obtain CT abdomen and pelvis. End date for Ancef 06/08, if no other metastatic infections on CT abdomen and pelvis. PICC line is ordered. Thanks for Consulting Infectious Diseases. Will follow. D/w Dr. Julian. Eben Pettit MD 06/01/2024 [place] [facility] Office: [phone] Fax: [phone] Voice recognition software was used to complete this document, therefore, skiver welt end variances may occur. * Daniel Harris Jr., MD - 06/01/2024 10:56 AM CDT Daily Progress SUBJECTIVE: Ms. Rodriguez is sitting up in a chair. She says her neck is sore. Otherwise no new complaints. She says she is breathing a little better. OBJECTIVE: Vitals: 05/31/24 0759 06/01/24 0016 06/01/24 0523 06/01/24 0700 BP: 105/91 106/49 120/78 BP Location: Right arm Right arm Left arm Patient Position: Lying Lying Lying Pulse: 72 77 87 Resp: 18 18 18 Temp: 36.4 ??C (97.5 ??F) 36.7 ??C (98.1 ??F) 37.1 ??C (98.7 ??F) TempSrc: Axillary Axillary Oral SpO2: 95% 94% 92% Weight: 121.3 kg (267 lb 6.7 oz) Height: 165.1 cm (5' 5 ) No intake or output data in the 24 hours ending 06/01/24 1056 Scheduled Medications Medication Dose Route Frequency carvediloL (COREG) tablet 6.25 mg 6.25 mg oral BID with meals (bkfst, dinner) ceFAZolin (ANCEF) 2,000 mg/100 mL in dextrose (premix) 2,000 mg 2,000 mg intravenous Q8H GALINA dilTIAZem (CARDIZEM) tablet 30 mg 30 mg oral TID dofetilide (TIKOSYN) capsule 500 mcg 500 mcg oral BID escitalopram (LEXAPRO) tablet 10 mg 10 mg oral Daily ferrous sulfate delayed release tablet 65 mg of elemental iron 65 mg of elemental iron oral Daily with breakfast furosemide (LASIX) 10 mg/mL injection 40 mg 40 mg intravenous BID DIURETIC insulin glargine (LANTUS, SEMGLEE) 100 unit/mL injection 18 Units 18 Units subcutaneous QAM insulin lispro (HumaLOG, ADMELOG) 100 unit/mL injection 0-4 Units 0-4 Units subcutaneous Nightly insulin lispro (HumaLOG, ADMELOG) 100 unit/mL injection 0-5 Units 0-5 Units subcutaneous TID with meals insulin lispro (HumaLOG, ADMELOG) 100 unit/mL injection 10 Units 10 Units subcutaneous TID with meals levothyroxine (SYNTHROID) tablet 75 mcg 75 mcg oral Daily - 0600 nortriptyline (PAMELOR) capsule 10 mg 10 mg oral Nightly pantoprazole DR (PROTONIX) extended release tablet 40 mg 40 mg oral Daily rivaroxaban (XARELTO) tablet 20 mg 20 mg oral Daily with dinner sacubitriL-valsartan (ENTRESTO) 24-26 mg tablet 1 tablet 1 tablet oral BID LABS: Recent Labs Lab Units 06/01/24 0449 WBC K/cumm 7.0 HEMOGLOBIN g/dL 11.5* HEMATOCRIT % 36.0 PLATELETS K/cumm 337 Recent Labs Lab Units 06/01/24 0650 06/01/24 0449 SODIUM mmol/L -- 131* POTASSIUM PLASMA mmol/L -- 3.8 CHLORIDE mmol/L -- 93* CO2 mmol/L -- 29 ANIONGAP mmol/L -- 9 GLUCOSE mg/dL -- 111 POC GLUCOSE MONITOR mg/dL 121 -- BUN SERUM mg/dL -- 13 CREATININE mg/dL -- 0.67 CALCIUM mg/dL -- 8.6 ALBUMIN g/dL -- 2.7* ALK PHOS Units/L -- 330* ALT Units/L -- 5* AST Units/L -- 20 BILIRUBIN TOTAL mg/dL -- 0.9 Lab Results Component Value Date BNP 911 (H) 02/28/2017 BNP 625 (H) 02/11/2017 Lab Results Component Value Date TROPONINI <0.03 02/28/2017 TROPONINI <0.03 02/12/2017 TROPONINI <0.03 02/12/2017 Exam General: in no apparent distress Neuro: Alert and oriented x 3, moves all extremities well HEENT: Unremarkable Lungs: symmetric, unlabored, clear to auscultation bilaterally Heart: S1,S2, irregular rate & rhythm, no murmurs, rubs, or gallops Abdomen: soft, non-tender, non-distended, bowel sounds present Extremities: no LE edema, palpable peripheral pulses BL ASSESSMENT/PLAN: Questionable endocarditis -no vegetations seen on CHANCE -continue therapy per Infectious Disease Atrial fibrillation -CHANCE discovered left atrial appendage clot therefore no cardioversion was attempted -Tikosyn loading has been started, QTC is actually shorter than prior to starting the Tikosyn -she remains in AFib on telemetry and on exam with fairly well-controlled rate Dislodged catheter -in pulmonary artery -seen on both CT scan and CHANCE Acute on chronic congestive heart failure -clinically compensated at this time -EF 30% by echo Neck pain -source unclear Diabetes type 2 -per hospitalist Hypothyroid -treated Daniel Harris Jr., MD [facility] 06/01/2024 10:56 AM * Elly Julian MD - 05/31/2024 10:05 PM CDT Daily Progress Chief complaint:Abdominal pain Subjective: Patient lying in bed, d/w Dr. Mcfarland-cleared from cards standpoint, EKG stable on Tikosyn-continue current dose as per EP, d/w Dr. Alejandra CTS -no surgical intervention planned for small wire/fragment in pulm artery, d/w Dr. Abernathy-IR retrieval not possible, d/w ID-await final antibioticrecs Interval History: As per HPI-Ms Lei Rodriguez is a 63 y.o. female with history of afib, CHF, DM, GERD,HTN, Intellectual disability, OAB, JOSE, thyroid disease, AICD, PPM, Cholecystectomy. Presented to [facility] on with nausea, vomiting, diarrhea, and abdominal pain. Livesat home with her sister. Limited historian due to intellectual disability. She was ultimately found to have endocarditis. Persistent positive blood cultures for staph aureus. ED put on vanc, zosyn, and IVF initially Now on Ancef at transfer Currently complains of right neck pain radiating to her right ear. Pain also on right mastoid. No hearing change, tinnitus, or hearing loss. She has been a little SOB on laying down for the past few days. No chest pain, pressure, or discomfort. Admit eval: Hyponatremia to 122 17% PMN with normal WBC. Plt 109 Cr 1 --> 0.7 Bili 2.4 AST 127 ALT 85 Alk selvin 159 CXR mild edema with trace pleural effuion and cardiomegaly CT a/p: Small hiatal hernia UA without UTI. 3+ glucose, 1+ ketones, 1+ blood. 0-2 RBC and 0-5 WBC. Negative FLU, RSV, COVID EKbpm afib LBBB / blood cx positive staph aureus Echo: EF 40-45% Mod LAE. JOSEPH TV vegetation at 2mm not clearly involving the AICD. CHANCE: LAE. Small central MR. 2mm TV vegetation mobile and prolapses into the right atrium in systole Most recent labs 05/20 INR 3.9 PTT 50 05/28 WBC 13.3, Hgb 12.4, PLT 258, 74% PMN. 05/28: NA 131. Cr 0.5 AST 45 ALT 21 AP 434 CRP elevated 31.1 OSH imaging (final reads below): C spine 05/21 No acute fx or traumatic malalignment. No severe central canal or neural foraminal narrowing HCT 05/21 No acute intracranial process CXR 05/21 Mild pulmonary edema and trace pleural effusion. Cardiomegaly CT abdomen/pelvis 05/21 Small sliding hiatal hernia Abdominal ultrasound Normal RUQ u/S post luz 05-30:Patient sitting up in a chair, d/w Dr. Mcfarland, requested CT chest which shows possible catheter or wire fragment, CTS to evaluate in a.m., advanced diet Review of Systems Gen: No fever, No chills, CV: No chest pain Resp: No SOB GI: No nausea, No vomiting, abdominal pain controlled Objective: Vitals: 24hr Min/Max: Temp Min: 36.8 ??C (98.2 ??F) Max: 37.3 ??C (99.1 ??F) Pulse Min: 73 Max: 100 BP Min: 100/65 Max: 166/111 Resp Min: 11 Max: 28 SpO2 Min: 90 % Max: 98 % Most Recent : Vitals: 05/31/24 1219 05/31/24 1500 05/31/24 1645 05/31/24 2109 BP: 100/65 122/72 144/54 BP Location: Left arm Left arm Right leg Patient Position: Sitting Lying Lying Pulse: 73 73 77 77 Resp: Temp: 36.9 ??C (98.5 ??F) 37.1 ??C (98.8 ??F) 37.3 ??C (99.1 ??F) TempSrc: Oral Oral Axillary SpO2: 91% 90% 95% Weight: Height: Physical Exam: Gen:Well built female Lungs:Symmetrical breath sounds b/l Heart:S1,S2 heard Abdomen:Soft, NT, BS+ Extremities:No edema b/l LE Neuro:Awake, alert, answers questions Lab/Radiology/Diagnostic Review: Recent Results (from the past 24 hour(s)) POCT glucose Collection Time: 05/31/24 1:59 AM Result Value Ref Range Glucose, POC 173 70 - 199 mg/dL CBC with auto differential Collection Time: 05/31/24 3:05 AM Result Value Ref Range WBC 7.9 3.8 - 9.9 K/cumm Hgb 11.9 11.9 - 15.5 g/dL Hct 37.0 35.6 - 45.5 % Plt 309 150 - 400 K/cumm MPV 9.7 9.1 - 12.3 fL RBC 3.64 (L) 3.90 - 5.20 M/cumm MCV 101.6 (H) 81.3 - 96.4 fL MCH 32.7 27.1 - 33.3 pg MCHC 32.2 (L) 32.3 - 35.7 g/dL RDW CV 14.5 11.1 - 14.9 % RDW SD 53.9 (H) 35.7 - 48.1 fL NRBC abs 0.00 0.00 - 0.01 K/cumm Comprehensive metabolic panel Collection Time: 05/31/24 3:05 AM Result Value Ref Range Sodium 132 (L) 135 - 145 mmol/L Potassium, pl 4.8 3.3 - 4.9 mmol/L Chloride 94 (L) 97 - 110 mmol/L CO2 26 22 - 32 mmol/L Anion gap 12 2 - 15 mmol/L BUN 14 6 - 25 mg/dL Creatinine 0.69 0.60 - 1.10 mg/dL Glucose 176 70 - 199 mg/dL Calcium 8.6 8.5 - 10.3 mg/dL Bilirubin, total 0.8 0.1 - 1.2 mg/dL Protein, pl 7.3 6.5 - 8.5 g/dL Albumin 2.8 (L) 3.5 - 5.0 g/dL Alk phos 387 (H) 40 - 130 Units/L ALT 7 7 - 45 Units/L AST 24 10 - 45 Units/L Magnesium Collection Time: 05/31/24 3:05 AM Result Value Ref Range Magnesium 2.1 1.4 - 2.5 mg/dL Phosphorus Collection Time: 05/31/24 3:05 AM Result Value Ref Range Phosphorus, pl 3.7 2.3 - 4.5 mg/dL Differential, auto Collection Time: 05/31/24 3:05 AM Result Value Ref Range Neutrophil abs 5.8 1.5 - 6.5 K/cumm Imm gran abs 0.1 0.0 - 0.1 K/cumm Lymphocyte abs 1.1 0.8 - 3.3 K/cumm Monocyte abs 0.7 0.2 - 0.8 K/cumm Eosinophil abs 0.2 0.0 - 0.5 K/cumm Basophil abs 0.1 0.0 - 0.1 K/cumm Neutrophil pct 73.2 % Imm gran pct 1.6 % Lymphocyte pct 14.2 % Monocyte pct 8.2 % Eosinophil pct 2.0 % Basophil pct 0.8 % eGFR Collection Time: 05/31/24 3:05 AM Result Value Ref Range eGFR >90 >=60 mL/min/1.73 m2 POCT glucose Collection Time: 05/31/24 6:21 AM Result Value Ref Range Glucose, POC 234 (H) 70 - 199 mg/dL POCT glucose Collection Time: 05/31/24 7:52 AM Result Value Ref Range Glucose, POC 185 70 - 199 mg/dL Transesophageal Echo (CHANCE) W Doppler/CF Collection Time: 05/31/24 9:35 AM Result Value Ref Range BSA 2.36 m2 POCT glucose Collection Time: 05/31/24 10:31 AM Result Value Ref Range Glucose, POC 142 70 - 199 mg/dL POCT glucose Collection Time: 05/31/24 4:47 PM Result Value Ref Range Glucose, POC 203 (H) 70 - 199 mg/dL POCT glucose Collection Time: 05/31/24 8:36 PM Result Value Ref Range Glucose, POC 270 (H) 70 - 199 mg/dL ECG 12 lead Result Date: 05/30/2024 Narrative: Vent Rate: 109 bpm RR Interval: 548 msec HI Interval: 0 msec QRS Duration: 149 msec QT Interval: 398 msec QTC Interval: 462 msec P-R-T [place]: 0 - 96 - 89 degrees IMPRESSION: ATRIAL FIBRILLATION WITH RAPID VENTRICULAR RESPONSE BORDERLINE RIGHT AXIS DEVIATION [QRS AXIS > 90] INTRAVENTRICULAR CONDUCTION DELAY [130+ ms QRS DURATION] ABNORMAL ECG Unchanged compared to an EKG done earlier on May 30, 2024 Electronically Signed By: Dr. Shiloh Muhammad [facility] CT Chest WO Contrast Result Date: 05/30/2024 [...] Complete W Doppler/CF Result Date: 05/30/2024 Narrative: [place] [address] Echocardiogram Report Patient Name: LEI RODRIGUEZ V : 1960 Study Date: 05/30/2024 7:47:08 AM Gender: F Tech: GUILHERME Location: [id number] Ref Provider: TY MCFARLAND Height(Cm): 165 BSA: [...] 33.1 percent AV Mean PG 3 mmHg [id number] 5.71 [ 3.80 - 5.20 ] cm [...] Right Ventricle: Normal right ventricular systolic function. Pa cemaker noted. Right Atrium: There is mild enlargement of right atrium. Linear artifact in right atrium suggestive of catheter(s), pacemaker lead(s), or ICD lead(s). Aortic Valve: Aortic cusps appearmildly sclerotic. No evidence of hemodynamically significant aortic [...] without respiratory collapse consistent with elevated right atrialpressure (>15 mmHg). Pulmonary Artery: Mild enlargement of the pulmonary artery. CONCLUSIONS: Technically difficult study with limited views. Mild enlargement of left ventricle cavity. Left ventricle not well visualized. Optison contrast agent used to visually enhance endocardial wall motion andcontractility. Normal left ventricular wall thickness. Paradoxical septal [...] Trivial pericardial effusion. Electronically Signed By: Coleen Kwok DO, RUBIO, ANDREE, MELISSA 2024-05-30 09:18:05 CDT [...] Rate: 86 bpm RR Interval: 697 msec HI Interval: 0 msec QRS Duration: 145 msec QT Interval: 438 msec QTC Interval: 481 msec P-R-T [place]: 0 - 101 - 95 degrees IMPRESSION: ATRIAL FIBRILLATION RIGHT AXIS DEVIATION [QRS AXIS > 100] INTRAVENTRICULAR CONDUCTION DELAY [130+ ms QRS DURATION] ABNORMAL ECG Unchanged compared to 05/29/2021 Electronically Signed By: Dr. Shiloh Muhammad [facility] CT Chest PE (CTA) W Contrast Result Date: 05/30/2024 Narrative: EXAMINATION: CT CHEST PE (CTA) W CONTRAST HISTORY: Chest pain ORDER DATE: 05/30/2024 3:20AM TECHNIQUE: CT chest images were acquired using a chest angiographic protocol with 3-D imaging optimized for PE is obtained [id number] mL of Optiray 350 IV. 2D Coronal [...] findings as described above. Stat report by [facility] . Electronically signed by: Andrea Abernathy M.D. [...] and partially calcified bulging disc contributing to [id number] central spinal stenosis. Disc osteophyte complex also contributing to [id number] central spinal stenosis at C4-C5 level. No significant disc bulge or herniation. No severe spinal canal stenosis. Uncovertebral joint hypertrophy contributing to multilevel bilateral neural foraminal stenosis. Lungs: Lung apices are normal. Soft tissues: Unremarkable. Impression: No acute cervical spine injury. Stat report by [facility] Stat report by [facility] Electronically signed by: Andrea Abernathy M.D. CT [...] No acute intracranial findings. Stat report by [facility] Electronically signed by: Andrea Abernathy M.D. ECG 12 lead Result Date: 05/30/2024 Narrative: Vent Rate: 93 bpm RR Interval: 645 msec HI Interval: 0 msec QRS Duration: 97 msec QT Interval: 197 msec QTC Interval: 247 msec P-R-T [place]: 0 - 118 - 0 degrees IMPRESSION: [...] Electronically Signed By: Antonio Carlos MD Assessment/Plan Endocarditis: Continue ancef. Blood cultures ngtd. ID and Cardiology Consulted. OSH blood cx-records requested. Telemetry. D/w Dr. Mcfarland/ CTS/IR-no further evaluation for removal of possible wirefragment /catheter in pulm artery on CT chest as risks outweigh benefits. Acute on chronic Systolic CHF Troponins flat. Echo shows EF 30%. On IV lasix. Evidence of volume overload on CT chest. On Entresto, coreg. Neck pain Seem to be MSK. CT head/C spine no acute pathology. Chronic afib Continue coreg, dilt, and Xarelto, Tikosyn as per Cards DM Some elevated blood sugars on Lantus and SSI. Added scheduled Humalog .Increased lantus dose and scheduled Humalog dose on 05-31 as blood sugars elevated. Hypothyroidism On Synthroid JOSE Apparently was not using her NPPV at OSH, Defer BMI 47.22 DVT ppx: Xarelto Disposition:Await final antibiotic recs Expected Date of Discharge:Await final antibiotic recs Barriers to Discharge:Await final ID recs These fluid and electrolyte abnormalities are being treated, evaluated or monitored: Hyperkalemia-resolved Hyponatremia-monitor * Ty Mcfarland MD - 05/31/2024 3:52 PM CDT Images from the original note were not included. Same-day repeat cardiology visit I saw examined the patient earlier today. Discussed case with 1 of patient's daughters in person and with other daughter on the phone that was listening to our conversation with 1st daughter . Daughter on the phone was Dilia Barillas Dr. Mcfarland reviewed pertinent information related to Tikosyn dosing. QT is 449 QTC 476 no significant QT QTC prolongation. No significant cardiac arrhythmias. Continue present dose of dofetilide Tikosyn Patient's GFR is stable. K and magnesium stable Latest Reference Range & Units Most Recent Potassium, pl 3.3 - 4.9 mmol/L 4.8 05/31/24 03:05 Latest Reference Range & Units 05/31/24 03:05 Magnesium 1.4 - 2.5 mg/dL 2.1 Latest Reference Range & Units 05/31/24 03:05 eGFR >=60 mL/min/1.73 m2 >90 ECG 12 lead Order: [id number] Status: Preliminary result Visible to patient: No (not released) Next appt: None 0 Result Notes Details Narrative Vent Rate: 74 bpm RR Interval: 810 msec HI Interval: 0 msec QRS Duration: 151 msec QT Interval: 449 msec QTC Interval: 476 msec P-R-T [place]: 0 - 102 - 146 degrees IMPRESSION: Atrial fibrillation ELECTRONIC VENTRICULAR PACEMAKER -- CONTOUR ANALYSIS BASED ON INTRINSIC RHYTHM RIGHT AXIS DEVIATION [QRS AXIS > 100] INTRAVENTRICULAR CONDUCTION DELAY [130+ ms QRS DURATION] ABNORMAL ECG Electronically Signed By: This result has not been signed. Information might be incomplet * Ty Mcfarland MD - 05/31/2024 12:40 PM CDT Got secure chat from the ID specialist who was consulted clot in MAULIK is present that is why CV was cancelled I just reviewed CHANCE - I do not see vegetation of any valve including no vegetation on TV. However there possible catheter or wire in the right pulmonaryartery seen on CHANCE and CT * Ty Mcfarland MD - 05/31/2024 7:47 AM CDT Images from the original note were not included. Cardiology follow-up note-[facility] Transesophageal echo and synchronized cardioversion is planned for today. Were no changes seen review of systems for physical exam. Informed consent was obtained from sister Dilia. Cardiology initial Consult summary Questionable Endocarditis, will do transesophageal echo to assess for possible endocarditis. Synchronized cardioversion will be done at same time. Procedure is planned for morning presence of cardiac device, atrial fibrillation-the Tikosyn was ordered follow-up protocol Dislodged catheter - see primary care note from from IR. Cardiothoracic consult was requested by primary care team. Need for antibiotic as per Infectious Disease team Echo stat was ordered I discussed case with Bobbi. We will be calling me with preliminary result. Please look for the line via or something else in pulmonary artery Please do that per echo stat this morning. The patient was seen examined by me Dr. Mcfarland in person. Pertinent information was reviewed these include but not limited to labs EKG and results chest x-ray and images. I reviewed pertinent of the available data. Will discuss case with Cardiothoracic team in more information is available Cardiology will follow with you and make additional recommendations as needed HPI: 63 y.o. female with history of afib, CHF, DM, GERD,HTN, Intellectual disability, OAB, JOSE, thyroid disease, AICD, PPM, Cholecystectomy. Presented to [facility] on with nausea, vomiting, diarrhea, and abdominal pain. Livesat home with her sister. Limited historian due to intellectual disability. She was ultimately found to have endocarditis. Persistent positive blood cultures for staph aureus. ED put on vanc, zosyn, and IVF initially Now on Ancef at transfer Currently complains of right neck pain radiating to her right ear. Pain also on right mastoid. No hearing change, tinnitus, or hearing loss. She has been a little SOB on laying down for the past few days. No chest pain, pressure, or discomfort. Past Medical History: Diagnosis Date A-fib (CMS/HCC) (HCC) CHF (congestive heart failure) (CMS/HCC) (HCC) Diabetes mellitus (HCC) GERD (gastroesophageal reflux disease) Hypertension Intellectual disability OAB (overactive bladder) Sleep apnea Thyroid disease Past Surgical History: Procedure Laterality Date CARDIAC DEFIBRILLATOR PLACEMENT CHOLECYSTECTOMY INSERT / REPLACE / REMOVE PACEMAKER Medications Prior to Admission Medication Sig Dispense Refill Last Dose BASAGLAR 100 unit/mL (3 mL) pen for injection Inject 18 Units under the skin daily carvediloL (COREG) 25 mg tablet Take 1 tablet (25 mg total) by mouth 2 (two) times a day with meals dilTIAZem (CARDIZEM) 30 mg tablet Take 1 tablet (30 mg total) by mouth 2 (two) times a day docusate sodium (COLACE) 100 mg capsule Take 1 capsule (100 mg total) by mouth 2 (two) times a day Entresto 24-26 mg tablet Take 1 tablet by mouth 2 (two) times a day escitalopram (LEXAPRO) 10 mg tablet Take 1 tablet (10 mg total) by mouth daily Farxiga 10 mg tablet Take 1 tablet (10 mg total) by mouth daily furosemide (LASIX) 40 mg tablet Take 1 tablet (40 mg total) by mouth daily nortriptyline (PAMELOR) 10 mg capsule Take 1 capsule (10 mg total) by mouth daily NovoLOG 100 unit/mL (3 mL) pen for injection Inject 10 Units under the skin 3 (three) times a day with meals Plus slide potassium chloride ER 20 mEq CR tablet Take 1 tablet (20 mEq total) by mouth daily albuterol HFA (PROVENTIL HFA,VENTOLIN HFA,PROAIR HFA) 90 mcg/actuation inhaler Inhale 2 puffs every6 (six) hours as needed for wheezing cholecalciferol (VITAMIN D-3) 5,000 unit tablet Take 1 tablet (5,000 Units total) by mouth daily ferrous sulfate 325 [...] mcg total) by mouth every morning multivit xkcdowlj-mwgn-RJ-calcium (THERA-M) 9 mg iron-400 mcg tablet Take 1 tablet by mouth daily omeprazole (PriLOSEC) 20 mg capsule Take 1 capsule (20 mg total) by mouth daily Xarelto 20 mg tablet Take 1 tablet (20 mg total) by mouth daily with dinner Current Facility-Administered Medications: carvediloL (COREG) tablet 6.25 mg, 6.25 mg, oral, BID with meals (bkfst, dinner), Raji Hollis MD, 6.25 mg at 05/30/24 1723 ceFAZolin (ANCEF) 2,000 mg/100 mL in dextrose (premix) 2,000 mg, 2,000 mg, intravenous, Q8H GALINA, Mike Hollis MD, Last Rate: 200 mL/hr at 05/31/24 0533, 2,000 mg at 05/31/24 0533 dextrose oral liquid liquid 15 g, 15 g, oral, Q15 Min PRN OR dextrose (D10W) 10% bolus 250 mL, 250 mL, intravenous, Q15 Min PRN, Mike Hollis MD dilTIAZem (CARDIZEM) tablet 30 mg, 30 mg, oral, TID, Mike Hollis MD, 30 mg at 201 docusate sodium (COLACE) capsule 100 mg, 100 mg, oral, BID PRN, Mike Hollis MD dofetilide (TIKOSYN) capsule 500 mcg, 500 mcg, oral, BID, Ty Mcfarland MD, 500 mcg at 05/30/24 2200 escitalopram (LEXAPRO) tablet 10 mg, 10 mg, oral, Daily, Mike Hollis MD, 10 mg at 05/30/24 0958 ferrous sulfate delayed release tablet 65 mg of elemental iron, 65 mg of elemental iron, oral, Daily with breakfast, Mike Hollis MD, 65 mg of elemental iron at 05/30/24 0958 furosemide (LASIX) 10 mg/mL injection 40 mg, 40 mg, intravenous, BID DIURETIC, Mike Hollis MD, 40 mg at 05/30/24 1626 glucagon injection 1 mg, 1 mg, intramuscular, Q30 Min PRN, Mike Hollis MD HYDROcodone-acetaminophen (NORCO) 5-325 mg per tablet 1 tablet, 1 tablet, oral, QID PRN, Mike Hollis MD, 1 tablet at 05/31/24 0235 insulin glargine (LANTUS, SEMGLEE) 100 unit/mL injection 14 Units, 14 Units, subcutaneous, QAM, Mike Hollis MD, 14 Units at 05/30/24 1313 insulin lispro (HumaLOG, ADMELOG) 100 unit/mL injection 0-4 Units, 0-4 Units, subcutaneous, Nightly, Mike Hollis MD, 2 Units at 05/30/242158 insulin lispro (HumaLOG, ADMELOG) 100 unit/mL injection 0-5 Units, 0-5 Units, subcutaneous, TID with meals, Mike Hollis MD, 1 Units at 05/30/24 172 insulin lispro (HumaLOG, ADMELOG) 100 unit/mL injection 5 Units, 5 Units, subcutaneous, TID with meals, Elly Julian MD levothyroxine (SYNTHROID) tablet 75 mcg, 75 mcg, oral, Daily - 0600, Mike Hollis MD, 75 mcg at 05/31/24 0533 nortriptyline (PAMELOR) capsule 10 mg, 10 mg, oral, Nightly, Mike Hollis MD, 10 mg at 05/30/242158 ondansetron (ZOFRAN) injection 4 mg, 4 mg, intravenous, Q6H PRN, Mike Hollis MD pantoprazole DR (PROTONIX) extended release tablet 40 mg, 40 mg, oral, Daily, Mike Hollis MD, 40 mg at 05/30/24 0958 polyethylene glycol (MIRALAX) packet 17 g, 17 g, oral, Daily PRN, Mike Hollis MD rivaroxaban (XARELTO) tablet 20 mg, 20 mg, oral, Daily with dinner, 20 mg at 05/30/241722 FOLLOWED BY [DISCONTINUED] rivaroxaban (XARELTO) tablet 20 mg, 20 mg, oral, Daily with dinner, Mike Hollis MD sacubitriL-valsartan (ENTRESTO) 24-26 mg tablet 1 tablet, 1 tablet, oral, BID, Mike Hollis MD, 1 tablet at 05/30/242158 Allergies Allergen Reactions Sulfa (Sulfonamide Antibiotics) Social History Tobacco Use Smoking status: Never Smokeless tobacco: Never Substance and Sexual Activity Drug use: None Sexual activity: None Alcohol Use: Unknown (05/30/2024) AUDIT-C Frequency of Alcohol Consumption: Not on file Average Number of Drinks: Patient does not drink Frequency of Binge Drinking: Not on file No family history on file. Review of Systems: Constitutional: Negative for fever. HENT: Negative for sneezing. Respiratory: Negative for cough. Positive for shortness of breath Cardiovascular: Negative for chest pain. Gastrointestinal: Negative for vomiting. Negative for diarrhea. Genitourinary: Negative for dysuria. Musculoskeletal: Negative for arthralgias. Skin: Negative for rash. Neurological: Negative for seizure. Psychiatric/Behavioral: Negative for agitation. Objective Vitals: 24hr Min/Max: Temp Min: 36.2 ??C (97.2 ??F) Max: 36.8 ??C (98.2 ??F) Pulse Min: 75 Max: 100 BP Min: 113/70 Max: 131/82 Resp Min: 16 Max: 20 SpO2 Min: 90 % Max: 94 % Most Recent: Vitals: 05/31/24 0400 BP: Pulse: 83 Resp: Temp: SpO2: I/O last 2 completed shifts: In: 200 [IV Piggyback:200] Out: - No intake/output data recorded. Physical Exam: General appearance: appears stated age and cooperative , very heavyset Pleasantly confused Head: Normocephalic, without obvious abnormality, atraumatic Eyes: conjunctivae clear ENT patient has no teeth. Tongue midline Neck: Normal thyroid size on palpation and supple, trachea midline Respiratory: clear to auscultation bilaterally and no rubs Vascular no obvious carotid bruit JVD cannot be appreciated Cardiology: Irregularly irregular rhythm mild systolic murmur at the apex radiating to axilla PMI displaced to the left but hard to appreciate due to body habitus. Gastrointestinal: Morbidly obese, soft, non-tender; no masses, no organomegaly Extremities: extremities normal warm and well-perfused Muscoskeletal: Diffuse joint deformity consistent with patient's age Skin: Skin color texture, turgor normal. No rashes or lesions Neurologic: No obvious focal weakness speech and gag is intact, pleasantly confused but cooperative Lab/Radiology/Diagnostic Review: Laboratory review: Lab results in the last 24 hours: Recent Results (from the past 24 hour(s)) CBC without differential Collection Time: 05/30/24 9:35 AM Result Value Ref Range WBC 10.6 (H) 3.8 - 9.9 K/cumm Hgb 11.7 (L) 11.9 - 15.5 g/dL Hct 36.2 35.6 - 45.5 % Plt 309 150 - 400 K/cumm MPV 9.1 9.1 - 12.3 fL RBC 3.58 (L) 3.90 - 5.20 M/cumm MCV 101.1 (H) 81.3 - 96.4 fL MCH 32.7 27.1 - 33.3 pg MCHC 32.3 32.3 - 35.7 g/dL RDW CV 14.5 11.1 - 14.9 % RDW SD 53.8 (H) 35.7 - 48.1 fL NRBC abs 0.00 0.00 - 0.01 K/cumm POCT glucose Collection Time: 05/30/24 12:03 PM Result Value Ref Range Glucose, POC 206 (H) 70 - 199 mg/dL POCT glucose Collection Time: 05/30/24 5:20 PM Result Value Ref Range Glucose, POC 179 70 - 199 mg/dL POCT glucose Collection Time: 05/30/24 8:52 PM Result Value Ref Range Glucose, POC 296 (H) 70 - 199 mg/dL POCT glucose Collection Time: 05/31/24 1:59 AM Result Value Ref Range Glucose, POC 173 70 - 199 mg/dL CBC with auto differential Collection Time: 05/31/24 3:05 AM Result Value Ref Range WBC 7.9 3.8 - 9.9 K/cumm Hgb 11.9 11.9 - 15.5 g/dL Hct 37.0 35.6 - 45.5 % Plt 309 150 - 400 K/cumm MPV 9.7 9.1 - 12.3 fL RBC 3.64 (L) 3.90 - 5.20 M/cumm MCV 101.6 (H) 81.3 - 96.4 fL MCH 32.7 27.1 - 33.3 pg MCHC 32.2 (L) 32.3 - 35.7 g/dL RDW CV 14.5 11.1 - 14.9 % RDW SD 53.9 (H) 35.7 - 48.1 fL NRBC abs 0.00 0.00 - 0.01 K/cumm Comprehensive metabolic panel Collection Time: 05/31/24 3:05 AM Result Value Ref Range Sodium 132 (L) 135 - 145 mmol/L Potassium, pl 4.8 3.3 - 4.9 mmol/L Chloride 94 (L) 97 - 110 mmol/L CO2 26 22 - 32 mmol/L Anion gap 12 2 - 15 mmol/L BUN 14 6 - 25 mg/dL Creatinine 0.69 0.60 - 1.10 mg/dL Glucose 176 70 - 199 mg/dL Calcium 8.6 8.5 - 10.3 mg/dL Bilirubin, total 0.8 0.1 - 1.2 mg/dL Protein, pl 7.3 6.5 - 8.5 g/dL Albumin 2.8 (L) 3.5 - 5.0 g/dL Alk phos 387 (H) 40 - 130 Units/L ALT 7 7 - 45 Units/L AST 24 10 - 45 Units/L Magnesium Collection Time: 05/31/24 3:05 AM Result Value Ref Range Magnesium 2.1 1.4 - 2.5 mg/dL Phosphorus Collection Time: 05/31/24 3:05 AM Result Value Ref Range Phosphorus, pl 3.7 2.3 - 4.5 mg/dL Differential, auto Collection Time: 05/31/24 3:05 AM Result Value Ref Range Neutrophil abs 5.8 1.5 - 6.5 K/cumm Imm gran abs 0.1 0.0 - 0.1 K/cumm Lymphocyte abs 1.1 0.8 - 3.3 K/cumm Monocyte abs 0.7 0.2 - 0.8 K/cumm Eosinophil abs 0.2 0.0 - 0.5 K/cumm Basophil abs 0.1 0.0 - 0.1 K/cumm Neutrophil pct 73.2 % Imm gran pct 1.6 % Lymphocyte pct 14.2 % Monocyte pct 8.2 % Eosinophil pct 2.0 % Basophil pct 0.8 % eGFR Collection Time: 05/31/24 3:05 AM Result Value Ref Range eGFR >90 >=60 mL/min/1.73 m2 POCT glucose Collection Time: 05/31/24 6:21 AM Result Value Ref Range Glucose, POC 234 (H) 70 - 199 mg/dL Lipids: No results found for: CHOL , CHLPL , HDL , LDLCALC , TRIG , CHOLHDL and Cardiac Enzymes: No results found for: CKTOTAL , CKMB , CKMBINDEX , TROPONINT ECG: Results for orders placed during the hospital encounter of 05/29/24 ECG 12 lead Narrative Vent Rate: 76 bpm RR Interval: 785 msec HI Interval: 0 msec QRS Duration: 150 msec QT Interval: 471 msec QTC Interval: 501 msec P-R-T [place]: 0 - 80 - 97 degrees IMPRESSION: ATRIAL FIBRILLATION WITH ABERRANT CONDUCTION OR VENTRICULAR PREMATURE COMPLEXES INTRAVENTRICULAR CONDUCTION DELAY [130+ ms QRS DURATION] ABNORMAL ECG Electronically Signed By: Dr. Shiloh Muhammad [facility] Transthoracic Echo (TTE) Complete W Doppler/CF WO Contrast Height: 165.1 cm (5' 5 ) Weight: 128.7 kg (283 lb 11.7 oz) Blood Pressure: 135/84 Date of Study: 05/30/24 Ordering Provider: Ty Mcfarland MD Clinical Indications: Endocarditis Reading Physicians Performing Staff Coleen Kwok DO Tech: Marisel Nelson RDCS Patient Information Patient Name Lei Rodriguez Legal Sex F 1960 Order-Level Documents CARDIOLOGY - ORDER - Scan on 05/30/24 9:19 AM by COLEEN KWOK of TTE PACS Images Show images for Transthoracic Echo (TTE) Complete W Doppler/CF [place] [address] Echocardiogram Report Patient Name: LEI RODRIGUEZ V : 1960 Study Date: 05/30/2024 7:47:08 AM Gender: F Tech: GUILHERME Location: [id number] Ref Provider: TY MCFARLAND Height(Cm): 165 BSA: [...] - 3.70 ] cm MV E Peak Ch[place] 1.00 [ 0.60 - 1.30 ] m/s [...] Trivial pericardial effusion. Electronically Signed By: Coleen Kwok DO, ANDREE BERGERON FASNC 2024-05-30 09:18:05 CDT CC: Show images for CT Chest WO Contrast Performing Department Imaging and Radiology [address] [place] [address] CT Chest WO Contrast Status: Final result Study Result Narrative & Impression EXAMINATION: Computed tomography of the chest without [...] changes of cholecystectomy. No suspicious osseous lesions. IMPRESSION: 1. Redemonstrated curvilinear radiopaque density extending from the proximal right lower lobe pulmonary artery into a subsegmental lateral basilar branch favors a catheter or wire fragment. 2. Findings most suggestive of heart failure with cardiomegaly, small volume pericardial effusion, and small bilateral pleural effusions and mild pulmonary edema. Electronically signed by: Abilio Post M.D. Impression recommendations Questionable Endocarditis, will do transesophageal echo to assess for possible endocarditis. Synchronized cardioversion will be done at same time. Procedure is planned for morning presence of cardiac device, atrial fibrillation-the Tikosyn was ordered follow-up protocol Dislodged catheter - see primary care note from from IR. Cardiothoracic consult was requested by primary care team. Need for antibiotic as per Infectious Disease team The patient was seen examined by me Dr. Mcfarland in person. Pertinent information was reviewed these include but not limited to labs EKG and results chest x-ray and images. CHANCE possible CV for today * Ty Mcfarland MD - 05/31/2024 7:47 AM CDT The patient was seen examined. Pertinent information was reviewed full cardiology note follow-up * Elly Julian MD - 05/30/2024 9:45 PM CDT Daily Progress Chief complaint:Abdominal pain Subjective: Patient sitting up in a chair, d/w Dr. Mcfarland, requested CT chest which shows possible catheter or wire fragment, CTS to evaluate in a.m., advanced diet Interval History: As per HPI-Ms Lei Rodriguez is a 63 y.o. female with history of afib, CHF, DM, GERD,HTN, Intellectual disability, OAB, JOSE, thyroid disease, AICD, PPM, Cholecystectomy. Presented to [facility] on with nausea, vomiting, diarrhea, and abdominal pain. Livesat home with her sister. Limited historian due to intellectual disability. She was ultimately found to have endocarditis. Persistent positive blood cultures for staph aureus. ED put on vanc, zosyn, and IVF initially Now on Ancef at transfer Currently complains of right neck pain radiating to her right ear. Pain also on right mastoid. No hearing change, tinnitus, or hearing loss. She has been a little SOB on laying down for the past few days. No chest pain, pressure, or discomfort. Admit eval: Hyponatremia to 122 17% PMN with normal WBC. Plt 109 Cr 1 --> 0.7 Bili 2.4 AST 127 ALT 85 Alk selvin 159 CXR mild edema with trace pleural effuion and cardiomegaly CT a/p: Small hiatal hernia UA without UTI. 3+ glucose, 1+ ketones, 1+ blood. 0-2 RBC and 0-5 WBC. Negative FLU, RSV, COVID EKbpm afib LBBB / blood cx positive staph aureus Echo: EF 40-45% Mod LAE. JOSEPH TV vegetation at 2mm not clearly involving the AICD. CHANCE: LAE. Small central MR. 2mm TV vegetation mobile and prolapses into the right atrium in systole Most recent labs 05/20 INR 3.9 PTT 50 05/28 WBC 13.3, Hgb 12.4, PLT 258, 74% PMN. 05/28: NA 131. Cr 0.5 AST 45 ALT 21 AP 434 CRP elevated 31.1 OSH imaging (final reads below): C spine 05/21 No acute fx or traumatic malalignment. No severe central canal or neural foraminal narrowing HCT 05/21 No acute intracranial process CXR 05/21 Mild pulmonary edema and trace pleural effusion. Cardiomegaly CT abdomen/pelvis 05/21 Small sliding hiatal hernia Abdominal ultrasound Normal RUQ u/S post luz Review of Systems Gen: No fever, No chills, CV: No chest pain Resp: No SOB GI: No nausea, No vomiting, abdominal pain controlled Objective: Vitals: 24hr Min/Max: Temp Min: 36.2 ??C (97.2 ??F) Max: 36.8 ??C (98.2 ??F) Pulse Min: 75 Max: 100 BP Min: 121/75 Max: 135/84 Resp Min: 16 Max: 20 SpO2 Min: 90 % Max: 94 % Most Recent : Vitals: 05/30/24 0434 05/30/24 1100 05/30/24 1500 05/30/242044 BP: 135/84 131/82 122/92 121/75 BP Location: Right arm Right arm Right arm Patient Position: Lying Pulse: 98 100 87 75 Resp: Temp: 36.4 ??C (97.5 ??F) 36.2 ??C (97.2 ??F) 36.8 ??C (98.2 ??F) TempSrc: Oral Oral SpO2: 93% 92% 94% 90% Weight: Height: I/O last 2 completed shifts: In: 560 [P.O.:360; IV Piggyback:200] Out: - Physical Exam: Gen:Well built female Lungs:Symmetrical breath sounds b/l Heart:S1,S2 heard Abdomen:Soft, NT, BS+ Extremities:No edema b/l LE Neuro:Awake, alert, answers questions Lab/Radiology/Diagnostic Review: Recent Results (from the past 24 hour(s)) CBC with auto differential Collection Time: 05/29/24 10:53 PM Result Value Ref Range WBC 8.6 3.8 - 9.9 K/cumm Hgb 12.2 11.9 - 15.5 g/dL Hct 36.9 35.6 - 45.5 % Plt 286 150 - 400 K/cumm MPV 10.0 9.1 - 12.3 fL RBC 3.76 (L) 3.90 - 5.20 M/cumm MCV 98.1 (H) 81.3 - 96.4 fL MCH 32.4 27.1 - 33.3 pg MCHC 33.1 32.3 - 35.7 g/dL RDW CV 14.6 11.1 - 14.9 % RDW SD 53.0 (H) 35.7 - 48.1 fL NRBC abs 0.00 0.00 - 0.01 K/cumm Basic metabolic panel Collection Time: 05/29/24 10:53 PM Result Value Ref Range Sodium 133 (L) 135 - 145 mmol/L Potassium, pl 5.1 (H) 3.3 - 4.9 mmol/L Chloride 98 97 - 110 mmol/L CO2 26 22 - 32 mmol/L Anion gap 9 2 - 15 mmol/L BUN 9 6 - 25 mg/dL Creatinine 0.58 (L) 0.60 - 1.10 mg/dL Glucose 90 70 - 199 mg/dL Calcium 8.6 8.5 - 10.3 mg/dL Magnesium Collection Time: 05/29/24 10:53 PM Result Value Ref Range Magnesium 2.2 1.4 - 2.5 mg/dL aPTT Collection Time: 05/29/24 10:53 PM Result Value Ref Range aPTT 28 28 - 38 sec Lactate Collection Time: 05/29/24 10:53 PM Result Value Ref Range Lactate 1.5 0.7 - 2.0 mmol/L Protime-INR Collection Time: 05/29/24 10:53 PM Result Value Ref Range PT 15.4 (H) 9.7 - 13.0 sec INR 1.42 (H) 0.90 - 1.20 Hepatic function panel Collection Time: 05/29/24 10:53 PM Result Value Ref Range Bilirubin, total 0.9 0.1 - 1.2 mg/dL Bilirubin, direct 0.2 0.1 - 0.3 mg/dL Protein, pl 6.9 6.5 - 8.5 g/dL Albumin 2.7 (L) 3.5 - 5.0 g/dL Alk phos 398 (H) 40 - 130 Units/L ALT 14 7 - 45 Units/L AST 51 (H) 10 - 45 Units/L Differential, auto Collection Time: 05/29/24 10:53 PM Result Value Ref Range Neutrophil abs 6.0 1.5 - 6.5 K/cumm Imm gran abs 0.1 0.0 - 0.1 K/cumm Lymphocyte abs 1.6 0.8 - 3.3 K/cumm Monocyte abs 0.8 0.2 - 0.8 K/cumm Eosinophil abs 0.1 0.0 - 0.5 K/cumm Basophil abs 0.1 0.0 - 0.1 K/cumm Neutrophil pct 69.3 % Imm gran pct 1.4 % Lymphocyte pct 18.2 % Monocyte pct 8.7 % Eosinophil pct 1.6 % Basophil pct 0.8 % eGFR Collection Time: 05/29/24 10:53 PM Result Value Ref Range eGFR >90 >=60 mL/min/1.73 m2 Pro B-type natriuretic peptide Collection Time: 05/29/24 11:00 PM Result Value Ref Range NT-proBNP 6,018 (H) <=300 pg/mL Troponin T high-sensitivity series (baseline, 2hr, 4hr, 6hr) Collection Time: 05/29/24 11:00 PM Result Value Ref Range Trop T hs 24 (H) <=14 ng/L POCT glucose Collection Time: 05/30/24 12:50 AM Result Value Ref Range Glucose, POC 129 70 - 199 mg/dL CBC with auto differential Collection Time: 05/30/24 4:28 AM Result Value Ref Range WBC 10.5 (H) 3.8 - 9.9 K/cumm Hgb 11.3 (L) 11.9 - 15.5 g/dL Hct 35.8 35.6 - 45.5 % Plt 283 150 - 400 K/cumm MPV 9.4 9.1 - 12.3 fL RBC 3.53 (L) 3.90 - 5.20 M/cumm MCV 101.4 (H) 81.3 - 96.4 fL MCH 32.0 27.1 - 33.3 pg MCHC 31.6 (L) 32.3 - 35.7 g/dL RDW CV 14.6 11.1 - 14.9 % RDW SD 54.4 (H) 35.7 - 48.1 fL NRBC abs 0.00 0.00 - 0.01 K/cumm Comprehensive metabolic panel Collection Time: 05/30/24 4:28 AM Result Value Ref Range Sodium 132 (L) 135 - 145 mmol/L Potassium, pl 4.6 3.3 - 4.9 mmol/L Chloride 95 (L) 97 - 110 mmol/L CO2 27 22 - 32 mmol/L Anion gap 10 2 - 15 mmol/L BUN 10 6 - 25 mg/dL Creatinine 0.74 0.60 - 1.10 mg/dL Glucose 113 70 - 199 mg/dL Calcium 8.4 (L) 8.5 - 10.3 mg/dL Bilirubin, total 1.0 0.1 - 1.2 mg/dL Protein, pl 6.7 6.5 - 8.5 g/dL Albumin 2.8 (L) 3.5 - 5.0 g/dL Alk phos 386 (H) 40 - 130 Units/L ALT 12 7 - 45 Units/L AST 32 10 - 45 Units/L Magnesium Collection Time: 05/30/24 4:28 AM Result Value Ref Range Magnesium 2.1 1.4 - 2.5 mg/dL Troponin T high-sensitivity 4-hour Collection Time: 05/30/24 4:28 AM Result Value Ref Range Trop T hs 26 (H) <=14 ng/L Trop T hs delta See Comment ng/L Trop T hs pct delta See Comment % Trop T hs interp See Comment Differential, auto Collection Time: 05/30/24 4:28 AM Result Value Ref Range Neutrophil abs 8.0 (H) 1.5 - 6.5 K/cumm Imm gran abs 0.1 0.0 - 0.1 K/cumm Lymphocyte abs 1.4 0.8 - 3.3 K/cumm Monocyte abs 0.8 0.2 - 0.8 K/cumm Eosinophil abs 0.1 0.0 - 0.5 K/cumm Basophil abs 0.1 0.0 - 0.1 K/cumm Neutrophil pct 76.0 % Imm gran pct 1.3 % Lymphocyte pct 13.4 % Monocyte pct 7.8 % Eosinophil pct 0.9 % Basophil pct 0.6 % eGFR Collection Time: 05/30/24 4:28 AM Result Value Ref Range eGFR >90 >=60 mL/min/1.73 m2 Troponin T high-sensitivity 6-hour Collection Time: 05/30/24 6:20 AM Result Value Ref Range Trop T hs 27 (H) <=14 ng/L Trop T hs delta See Comment ng/L Trop T hs pct delta See Comment % Trop T hs interp See Comment CBC without differential Collection Time: 05/30/24 9:35 AM Result Value Ref Range WBC 10.6 (H) 3.8 - 9.9 K/cumm Hgb 11.7 (L) 11.9 - 15.5 g/dL Hct 36.2 35.6 - 45.5 % Plt 309 150 - 400 K/cumm MPV 9.1 9.1 - 12.3 fL RBC 3.58 (L) 3.90 - 5.20 M/cumm MCV 101.1 (H) 81.3 - 96.4 fL MCH 32.7 27.1 - 33.3 pg MCHC 32.3 32.3 - 35.7 g/dL RDW CV 14.5 11.1 - 14.9 % RDW SD 53.8 (H) 35.7 - 48.1 fL NRBC abs 0.00 0.00 - 0.01 K/cumm POCT glucose Collection Time: 05/30/24 12:03 PM Result Value Ref Range Glucose, POC 206 (H) 70 - 199 mg/dL POCT glucose Collection Time: 05/30/24 5:20 PM Result Value Ref Range Glucose, POC 179 70 - 199 mg/dL POCT glucose Collection Time: 05/30/24 8:52 PM Result Value Ref Range Glucose, POC 296 (H) 70 - 199 mg/dL ECG 12 lead Result Date: 05/30/2024 Narrative: Vent Rate: 109 bpm RR Interval: 548 msec HI Interval: 0 msec QRS Duration: 149 msec QT Interval: 398 msec QTC Interval: 462 msec P-R-T [place]: 0 - 96 - 89 degrees IMPRESSION: ATRIAL FIBRILLATION WITH RAPID VENTRICULAR RESPONSE BORDERLINE RIGHT AXIS DEVIATION [QRS AXIS > 90] INTRAVENTRICULAR CONDUCTION DELAY [130+ ms QRS DURATION] ABNORMAL ECG Unchanged compared to an EKG done earlier on May 30, 2024 Electronically Signed By: Dr. Shiloh Muhammad [facility] CT Chest WO Contrast Result Date: 05/30/2024 Narrative: EXAMINATION: Computed tomography of the chest without intravenous contrast HISTORY: Right lower lobe pulmonary artery for and body TECHNIQUE: Transaxial computed tomographic images of thechest were obtained without intravenous contrast according to [...] Complete W Doppler/CF Result Date: 05/30/2024 Narrative: [place] [address] Echocardiogram Report Patient Name: LEI RODRIGUEZ V : 1960 Study Date: 05/30/2024 7:47:08 AM Gender: F Tech: GUILHERME Location: [place] [address] Ref Provider: TY MCFARLAND Height(Cm): 165 BSA: [...] 33.1 percent AV Mean PG 3 mmHg [id number] 5.71 [ 3.80 - 5.20 ] cm [...] Trivial pericardial effusion. Electronically Signed By: Coleen Kwok DO, RUBIO, MELISSA CANDELARIO 2024-05-30 09:18:05 CDT [...] Rate: 86 bpm RR Interval: 697 msec HI Interval: 0 msec QRS Duration: 145 msec QT Interval: 438 msec QTC Interval: 481 msec P-R-T [place]: 0 - 101 - 95 degrees IMPRESSION: ATRIAL FIBRILLATION RIGHT AXIS DEVIATION [QRS AXIS > 100] INTRAVENTRICULAR CONDUCTION DELAY [130+ ms QRS DURATION] ABNORMAL ECG Unchanged compared to 05/29/2021 Electronically Signed By: Dr. Shiloh Muhammad [facility] CT Chest PE (CTA) W Contrast Result Date: 05/30/2024 Narrative: EXAMINATION: CT CHEST PE (CTA) W CONTRAST HISTORY: Chest pain ORDER DATE: 05/30/2024 3:20AM TECHNIQUE: CT chest images were acquired using a chest angiographic protocol with 3-D imaging optimized for PE is obtained [id number] mL of Optiray 350 IV. 2D Coronal [...] findings as described above. Stat report by [facility] . Electronically signed by: Andrea Abernathy M.D. [...] and partially calcified bulging disc contributing to [id number] central spinal stenosis. Disc osteophyte complex also contributing to avyx-ie-gnjweies central spinal stenosis at C4-C5 level. No significant disc bulge or herniation. No severe spinal canal stenosis. Uncovertebral joint hypertrophy contributing to multilevel bilateral neural foraminal stenosis. Lungs: Lung apices are normal. Soft tissues: Unremarkable. Impression: No acute cervical spine injury. Stat report by [facility] Stat report by [facility] Electronically signed by: Andrea Abernathy M.D. CT [...] No acute intracranial findings. Stat report by [facility] Electronically signed by: Andrea Abernathy M.D. ECG 12 lead Result Date: 05/30/2024 Narrative: Vent Rate: 93 bpm RR Interval: 645 msec HI Interval: 0 msec QRS Duration: 97 msec QT Interval: 197 msec QTC Interval: 247 msec P-R-T [place]: 0 - 118 - 0 degrees IMPRESSION: [...] Electronically Signed By: Antonio Carlos MD Assessment/Plan Endocarditis: Continue ancef. Blood cultures pending. ID and Cardiology Consulted. OSH blood cx. Telemetry. D/w Dr. Mcfarland-await CTS evaluation of possible wire fragment /catheter on CT chest. Acute on chronic Systolic CHF Troponins flat. Echo shows EF 30%. On IV lasix. Evidence of volume overload on CT chest. On Entresto, coreg. Neck pain Seem to be MSK. CT head/C spine no acute pathology. Chronic afib Continue coreg, dilt, and Xarelto, Tikosyn as per Cards DM Some elevated blood sugars on Lantus and SSI. Added scheduled Humalog. Hypothyroidism On Synthroid JOSE Apparently was not using her NPPV at OSH, Defer BMI 47.22 DVT ppx: Xarelto Disposition:Depends on clinical course Expected Date of Discharge:Depending on clinical course Barriers to Discharge:Improvement in clinical condition These fluid and electrolyte abnormalities are being treated, evaluated or monitored: Hyperkalemia-resolved Hyponatremia-monitor * Angel Chaudhry, [facility] - 05/30/2024 3:35 PM CDT Pharmacy Medication Reconciliation Note Patient Lei Rodriguez is a 63 y.o. female who has been admitted to . The prior to admission home medication list was reviewed by pharmacy. Prior to Admission medications Medication Sig Start Date End Date Taking? Authorizing Provider BASAGLAR 100 unit/mL (3 mL) pen for injection Inject 18 Units under the skin daily 02/09/24 Yes ProviderNica MD carvediloL (COREG) 25 mg tablet Take 1 tablet (25 mg total) by mouth 2 (two) times a day with meals05/06/17 Yes ProviderNica MD dilTIAZem (CARDIZEM) 30 mg tablet Take 1 tablet (30 mg total) by mouth 2 (two) times a day 04/28/17 Yes ProviderNica MD docusate sodium (COLACE) 100 mg capsule Take 1 capsule (100 mg total) by mouth 2 (two) times a day 09/23/17 Yes ProviderNica MD Entresto 24-26 mg tablet Take 1 tablet by mouth 2 (two) times a day 09/11/21 Yes Nica Muniz MD escitalopram (LEXAPRO) 10 mg tablet Take 1 tablet (10 mg total) by mouth daily 12/12/23 Yes ProviderNica MD Farxiga 10 mg tablet Take 1 tablet (10 mg total) by mouth daily 06/01/22 Yes ProviderNica MD furosemide (LASIX) 40 mg tablet Take 1 tablet (40 mg total) by mouth daily 04/02/24 Yes Nica Muniz MD nortriptyline (PAMELOR) 10 mg capsule Take 1 capsule (10 mg total) by mouth daily 05/18/24 Yes Nica Muniz MD NovoLOG 100 unit/mL (3 mL) pen for injection Inject 10 Units under the skin 3 (three) times a day with meals Plus slide 07/18/23 Yes Nica Muniz MD potassium chloride ER 20 mEq CR tablet Take 1 tablet (20 mEq total) by mouth daily 01/20/24 Yes Nica Muniz MD albuterol HFA (PROVENTIL HFA,VENTOLIN HFA,PROAIR HFA) 90 mcg/actuation inhaler Inhale 2 puffs every6 (six) hours as needed for wheezing Nica Muniz MD cholecalciferol (VITAMIN D-3) 5,000 unit tablet Take 1 tablet (5,000 Units total) by mouth daily Nica Muniz MD ferrous sulfate 325 mg (65 mg of elemental iron) tablet Take 1 tablet (325 mg total) by mouth dailywith breakfast Nica Muniz MD fluticasone propionate (FLONASE) 50 mcg/actuation nasal spray Administer 1 spray into each nostril daily as needed for rhinitis Nica Muniz MD Gemtesa 75 mg tablet Take 1 tablet by mouth daily Nica Muniz MD levothyroxine (SYNTHROID) 75 mcg tablet Take 1 tablet (75 mcg total) by mouth every morning Nica Muniz MD multivit obdsfnme-cpkm-RM-calcium (THERA-M) 9 mg iron-400 mcg tablet Take 1 tablet by mouth daily Nica Muniz MD omeprazole (PriLOSEC) 20 mg capsule Take 1 capsule (20 mg total) by mouth daily Nica Muniz MD Xarelto 20 mg tablet Take 1 tablet (20 mg total) by mouth daily with dinner ProviderNica MD The patient???s home medication list has been reconciled and updated as follows: - Orders that were discontinued: N/a - Orders that were added: Multivitamin, vitamin d, flonase, albuterol - Orders that were changed (doses/frequency/formulation): Diltiazem dose was recently changed to twice daily Added plus slide to short acting insulin. Patient's sisters were not sure what the exact slide was by memory. - Additional comments/recommendations: Discussed pharmacy fill history with patient's sisters Sources of information for this medication reconciliation include: family member and prescription fill history Angel Chaudhry, Pharm.D, BCPS 05/30/2024 3:34 PM * Ty Mcfarland MD - 05/30/2024 9:59 AM CDT Echo was done earlier. No line or wire was seen in pulmonary artery on ECHO by Dr. Mcfarland * Ty Mcfarland MD - 05/30/2024 9:58 AM CDT EKG fu note manual review shows QT 360, Qtc 420 ms on both EKGs. okay to give tikosyn * Ty Mcfarland MD - 05/30/2024 6:38 AM CDT Pertinent information was reviewed full cardiology note to follow documented in this encounter H&P Notes * Mike Hollis MD - 05/29/2024 8:08 PM CDT General Medicine History and Physical DATE OF SERVICE: 05/29/24 PRIMARY CARE PHYSICIAN: Dr. Oswaldo Serrano SUBJECTIVE: Patient is a 63 y.o. female with a chief complaint of abdominal pain. HPI: 63 y.o. female with history of afib, CHF, DM, GERD,HTN, Intellectual disability, OAB, JOSE, thyroid disease, AICD, PPM, Cholecystectomy. Presented to [facility] on with nausea, vomiting, diarrhea, and abdominal pain. Livesat home with her sister. Limited historian due to intellectual disability. She was ultimately found to have endocarditis. Persistent positive blood cultures for staph aureus. ED put on vanc, zosyn, and IVF initially Now on Ancef at transfer Currently complains of right neck pain radiating to her right ear. Pain also on right mastoid. No hearing change, tinnitus, or hearing loss. She has been a little SOB on laying down for the past few days. No chest pain, pressure, or discomfort. Admit eval: Hyponatremia to 122 17% PMN with normal WBC. Plt 109 Cr 1 --> 0.7 Bili 2.4 AST 127 ALT 85 Alk selvin 159 CXR mild edema with trace pleural effuion and cardiomegaly CT a/p: Small hiatal hernia UA without UTI. 3+ glucose, 1+ ketones, 1+ blood. 0-2 RBC and 0-5 WBC. Negative FLU, RSV, COVID EKbpm afib LBBB / blood cx positive staph aureus Echo: EF 40-45% Mod LAE. JOSEPH TV vegetation at 2mm not clearly involving the AICD. CHANCE: LAE. Small central MR. 2mm TV vegetation mobile and prolapses into the right atrium in systole Most recent labs 05/20 INR 3.9 PTT 50 05/28 WBC 13.3, Hgb 12.4, PLT 258, 74% PMN. 05/28: NA 131. Cr 0.5 AST 45 ALT 21 AP 434 CRP elevated 31.1 OSH imaging (final reads below): C spine 05/21 No acute fx or traumatic malalignment. No severe central canal or neural foraminal narrowing HCT 05/21 No acute intracranial process CXR 05/21 Mild pulmonary edema and trace pleural effusion. Cardiomegaly CT abdomen/pelvis 05/21 Small sliding hiatal hernia Abdominal ultrasound Normal RUQ u/S post luz I reviewed the past six months of notes in Epic, Clinical Desktop, and Care Everywhere as well as the patient's last hospitalization to determine the patient's recent health activity. The patient appears to have been admitted to [facility] as above.. I reviewed the patient's vital signs, inpatient meds, outpatient meds, labs, imaging, orders. Past Medical History: Diagnosis Date A-fib (CMS/[facility]) (HCC) CHF (congestive heart failure) (CMS/HCC) (HCC) Diabetes mellitus (HCC) GERD (gastroesophageal reflux disease) Hypertension Intellectual disability OAB (overactive bladder) Sleep apnea Thyroid disease Past Surgical History: Procedure Laterality Date CARDIAC DEFIBRILLATOR PLACEMENT CHOLECYSTECTOMY INSERT / REPLACE / REMOVE PACEMAKER Medications Prior to Admission Medication Sig Dispense Refill Last Dose BASAGLAR 100 unit/mL (3 mL) pen for injection Inject 18 Units under the skin daily carvediloL (COREG) 25 mg tablet Take 1 tablet (25 mg total) by mouth 2 (two) times a day with meals dilTIAZem (CARDIZEM) 30 mg tablet Take 1 tablet (30 mg total) by mouth 3 (three) times a day docusate sodium (COLACE) 100 mg capsule Take 1 capsule (100 mg total) by mouth 2 (two) times a day Entresto 24-26 mg tablet Take 1 tablet by mouth 2 (two) times a day escitalopram (LEXAPRO) 10 mg tablet Take 1 tablet (10 mg total) by mouth daily Farxiga 10 mg tablet Take 1 tablet (10 mg total) by mouth daily furosemide (LASIX) 40 mg tablet Take 1 tablet (40 mg total) by mouth daily nortriptyline (PAMELOR) 10 mg capsule Take 1 capsule (10 mg total) by mouth daily NovoLOG 100 unit/mL (3 mL) pen for injection Inject 10 Units under the skin 3 (three) times a day with meals potassium chloride ER 20 mEq CR tablet Take 1 tablet (20 mEq total) by mouth daily ferrous sulfate 325 mg (65 mg of elemental iron) tablet Take 1 tablet (325 mg total) by mouth dailywith breakfast Gemtesa 75 mg tablet Take 1 tablet by mouth daily levothyroxine (SYNTHROID) 75 mcg tablet Take 1 tablet (75 mcg total) by mouth every morning omeprazole (PriLOSEC) 20 mg capsule Take 1 capsule (20 mg total) by mouth daily Xarelto 20 mg tablet Take 1 tablet (20 mg total) by mouth daily with dinner Allergies Allergen Reactions Sulfa (Sulfonamide Antibiotics) Social History Tobacco Use Smoking status: Never Smokeless tobacco: Never Substance and Sexual Activity Drug use: None Sexual activity: None Alcohol Use: Unknown (05/30/2024) AUDIT-C Frequency of Alcohol Consumption: Not on file Average Number of Drinks: Patient does not drink Frequency of Binge Drinking: Not on file No family history on file. Prior to Admission medications Not on File Review of Systems Constitutional: Negative for fever. HENT: Negative for sneezing. Respiratory: Negative for cough. Positive for shortness of breath Cardiovascular: Negative for chest pain. Gastrointestinal: Negative for vomiting. Negative for diarrhea. Genitourinary: Negative for dysuria. Musculoskeletal: Negative for arthralgias. Skin: Negative for rash. Neurological: Negative for seizure. Psychiatric/Behavioral: Negative for agitation. OBJECTIVE: Vitals: Arrival Vitals [05/29/24 1735] Temp 36.6 ??C (97.9 ??F) Pulse 97 Resp 20 BP 127/75 SpO2 93 % Temp src Heart Rate Source Patient Position BP Location Right arm FiO2 (%) Most Recent : Vitals: 05/29/24 1735 BP: 127/75 BP Location: Right arm Pulse: 97 Resp: 20 Temp: 36.6 ??C (97.9 ??F) SpO2: 93% Weight: 128.7 kg (283 lb 11.7 oz) Height: 165.1 cm (5' 5 ) Physical exam: General appearance: appears stated age and cooperative , Head: Normocephalic, without obvious abnormality, atraumatic Eyes: conjunctivae clear Neck: no JVD and supple, Throat: symmetrical, trachea midline Respiratory: clear to auscultation bilaterally and no rubs Cardiovascular: Regular rate and rhythm, S1, S2 normal, no murmur click, rub, or gallop Gastrointestinal: soft, non-tender; no masses, no organomegaly Extremities: extremities normal warm and well-perfused Muscoskeletal: tight and tender right trapezius. Tender mastoid Skin: Skin color texture, turgor normal. No rashes or lesions Neurologic: Alert and oriented to name, hospital, year but not month CN 2-12 normal Strength, sensation, FNF and HTS normal Lab/Radiology/Diagnostic Review: No results found for this or any previous visit (from the past 24 hour(s)). No results found. ASSESSMENT/PLAN: Principal Problem: Endocarditis Active Problems: SOB (shortness of breath) Acute on chronic systolic congestive heart failure (CMS/HCC) (HCC) Neck pain Hyponatremia Chronic a-fib (CMS/HCC) (HCC) Type 2 diabetes mellitus, with long-term current use of insulin (HCC) Hypothyroid JOSE (obstructive sleep apnea) 1. Endocarditis: Continue ancef. Check blood cultures. ID and Cardiology Consults. Get OSH blood culture results. Telemetry 2. SOB, Acute on chronic Systolic CHF: Suspect CHF exacerbation. Start with BNP, basic labs, CXR, EKG, troponins. Diurese. Consider CTA chest. Tele 3. Neck pain: Seem to be MSK. Check Head and neck CT. 4. Hyponatremia: Minor by 05/28. Recheck. 5. Chronic afib: Continue coreg, dilt, and Xarelto 6. DM: Lantus and SSI 7. Hypothyroid: Synthroid 8. JOSE: Not using her NPPV at OSH, Defer 8. Confirm home med list with sister. 10. These fluid and electrolyte abnormalities are being treated, evaluated or monitored: Fluid overload-- diurese and follow electrolytes and renal function DVT ppx: Xarelto Morning labs: CBC, CMP, Mg Full Code presumably awaiting family input from sister. ESTIMATED LENGTH OF STAY: Two or more inpatient midnights All diagnoses present on admission unless otherwise noted. My total encounter time on 05/29/24 was 75 minutes which was spent in the activities documented in the note. This includes time spent prior to the visit and after the visit in direct care of the patient. This time does not include time spent in any separately reportable services. documented in this encounter Consult Notes * Ivette Harrington MSW - 06/01/2024 3:54 PM CDTAssociated Order(s): IP CONSULT TO SOCIAL WORK SW consult received for pt needing assistance with water bill. SW will complete SW assessment with pt. SW put [facility] resources info in pt's AVS. RISHI Stevenson Slitter Creaser Slotter Operator Case Management * Eben Pettit MD - 05/31/2024 1:01 PM CDTAssociated Order(s): IP CONSULT TO INFECTIOUS DISEASES Infectious Disease Consult Consulting Physician: Eben Pettit MD. Reason for consult: MSSA bacteremia/Suspected endocarditis tricuspid valve. HPI: Patient is a 63 y.o. female with known medical history significant for atrial fibrillation, CHF, GERD, hypertension, obstructive sleep apnea, thyroid disease, intellectual disability and a poor historian. Reports that she has been feeling sick for about 2 weeks and she was told to present to hospital by her sister and hand got admitted to [facility] 05/21, per H and P she was apparently havi ng nausea vomiting and abdominal pain. It is further reported in H and P that she was found to haveendocarditis, and found to have Staph aureus bacteremia there apparently MSSA. Initially she was treated with vancomycin Zosyn and later switched to Ancef, now transferred to [facility] for further evaluation. Cardiology, electrophysiology consulted. Currently patient denies having any new symptoms, feels better, sitting up in chair. PMH: Past Medical History: Diagnosis Date A-fib (CMS/HCC) ([facility]) CHF (congestive heart failure) (CMS/HCC) (HCC) Diabetes mellitus (HCC) GERD (gastroesophageal reflux disease) Hypertension Intellectual disability OAB (overactive bladder) Sleep apnea Thyroid disease Past Surgical History: Procedure Laterality Date CARDIAC DEFIBRILLATOR PLACEMENT CHOLECYSTECTOMY INSERT / REPLACE / REMOVE PACEMAKER OTHER SURGICAL HISTORY 05/31/2024 CHANCE/CARDIOVERSION Med: Current Facility-Administered Medications Medication Dose Route Frequency Provider Last Rate Last Admin carvediloL (COREG) tablet 6.25 mg 6.25 mg oral BID with meals (bkfst, dinner) Mike Hollis MD 6.25 mg at 05/31/24 1038 ceFAZolin (ANCEF) 2,000 mg/100 mL in dextrose (premix) 2,000 mg 2,000 mg intravenous Q8H GALINA Mike Hollis MD 200 mL/hr at 05/31/24 0533 2,000 mg at 05/31/24 0533 dextrose oral liquid liquid 15 g 15 g oral Q15 Min PRN Mike Hollis MD Or dextrose (D10W) 10% bolus 250 mL 250 mL intravenous Q15 Min PRN Mike Hollis MD dilTIAZem (CARDIZEM) tablet 30 mg 30 mg oral TID Mike Hollis MD 30 mg at 05/31/24 1038 docusate sodium (COLACE) capsule 100 mg 100 mg oral BID PRN Mike Hollis MD dofetilide (TIKOSYN) capsule 500 mcg 500 mcg oral BID Ty Mcfarland MD 500 mcg at 05/31/24 1037 escitalopram (LEXAPRO) tablet 10 mg 10 mg oral Daily Mike Hollis MD 10 mg at 05/31/24 1038 ferrous sulfate delayed release tablet 65 mg of elemental iron 65 mg of elemental iron oral Daily with breakfast Mike Hollis MD 65 mg of elemental iron at 05/31/24 1038 furosemide (LASIX) 10 mg/mL injection 40 mg 40 mg intravenous BID DIURETIC Mike Hollis MD 40 mg at 05/31/24 1039 glucagon injection 1 mg 1 mg intramuscular Q30 Min PRN Mike Hollis MD HYDROcodone-acetaminophen (NORCO) 5-325 mg per tablet 1 tablet 1 tablet oral QID PRN Miek Hollis MD 1 tablet at 05/31/24 1105 insulin glargine (LANTUS, SEMGLEE) 100 unit/mL injection 14 Units 14 Units subcutaneous QAM Mike Hollis MD 14 Units at 05/31/24 1042 insulin lispro (HumaLOG, ADMELOG) 100 unit/mL injection 0-4 Units 0-4 Units subcutaneous Nightly Mike Hollis MD 2 Units at 05/30/24 2159 insulin lispro (HumaLOG, ADMELOG) 100 unit/mL injection 0-5 Units 0-5 Units subcutaneous TID with meals Mike Hollis MD 1 Units at 05/30/24 1723 insulin lispro (HumaLOG, ADMELOG) 100 unit/mL injection 5 Units 5 Units subcutaneous TID with mealsElly Julian MD levothyroxine (SYNTHROID) tablet 75 mcg 75 mcg oral Daily - 0600 Mike Hollis MD 75 mcgat 05/31/24 0533 nortriptyline (PAMELOR) capsule 10 mg 10 mg oral Nightly Mike Hollis MD 10 mg at 05/30/24 2159 ondansetron (ZOFRAN) injection 4 mg 4 mg intravenous Q6H PRN Mike Hollis MD pantoprazole DR (PROTONIX) extended release tablet 40 mg 40 mg oral Daily Mike Hollis MD 40 mg at 05/31/24 1038 polyethylene glycol (MIRALAX) packet 17 g 17 g oral Daily PRN Mike Hollis MD rivaroxaban (XARELTO) tablet 20 mg 20 mg oral Daily with dinner Mike Hollis MD 20 mg at 05/30/24 1723 sacubitriL-valsartan (ENTRESTO) 24-26 mg tablet 1 tablet 1 tablet oral BID Mike Hollis MD 1 tablet at 05/31/24 1037 Allergies: Allergies Allergen Reactions Sulfa (Sulfonamide Antibiotics) SH: Social History Tobacco Use Smoking status: Never Smokeless tobacco: Never Substance and Sexual Activity Drug use: None Sexual activity: None Alcohol Use: Unknown (05/30/2024) AUDIT-C Frequency of Alcohol Consumption: Not on file Average Number of Drinks: Patient does not drink Frequency of Binge Drinking: Not on file FH: No family history on file. Review of Systems: 14 point review of systems is negative except for what I have already mentioned above in the history of present illness. Objective: Vitals: 24hr Min/Max: Temp Min: 36.2 ??C (97.2 ??F) Max: 36.9 ??C (98.5 ??F) Pulse Min: 73 Max: 100 BP Min: 100/65 Max: 166/111 Resp Min: 11 Max: 28 SpO2 Min: 90 % Max: 98 % Most Recent : Vitals: 05/31/24 0901 05/31/24 0905 05/31/24 0915 05/31/24 1219 BP: 141/78 133/76 130/78 100/65 BP Location: Left arm Patient Position: Sitting Pulse: 84 81 73 Resp: 24 28 20 Temp: 36.9 ??C (98.5 ??F) TempSrc: Oral SpO2: 96% 94% 91% Weight: Height: Physical Exam: General appearance: alert, cooperative, no distress HEENT: (-)icterus, Oropharnyx is normal, NCAT Neck: No palpable LN Lungs: breath sounds normal and symmetric; minimal respiratory effort, no r/w/c Heart: regular rhythm, normal S1 and S2, no m/r/g Abdomen: soft without mass, non-tender, +bowel sounds, no HSM Extremities/Skin: no gross deformities, FROM, no new rashes, no ulcerations Vascular: no Edema, pulses present bilaterally Neuro: No focal deficits Psych: Appropriate mood and affect , intellectual disability Labs Reviewed. Recent Labs Lab Units 05/31/24 0305 05/30/24 0935 05/30/24 0428 WBC K/cumm 7.9 10.6* 10.5* HEMOGLOBIN g/dL 11.9 11.7* 11.3* HEMATOCRIT % 37.0 36.2 35.8 PLATELETS K/cumm 309 309 283 Recent Labs Lab Units 05/31/24 0305 05/30/24 0428 05/29/24 2253 BUN SERUM mg/dL 14 10 9 CREATININE mg/dL 0.69 0.74 0.58* Lab Results Component Value Date ALT 7 05/31/2024 AST 24 05/31/2024 ALKPHOS 387 (H) 05/31/2024 BILITOT 0.8 05/31/2024 Cultures Blood cultures 05/30 no growth so far Outside hospital 01/11 blood cultures reported to be positive for Staph aureus MSSA. Imaging [facility] echo reported as Tricuspid valve vegetation. CT chest noncontrast. 05/30 IMPRESSION: 1. Redemonstrated curvilinear radiopaque density extending from the proximal right lower lobe pulmonary artery into a subsegmental lateral basilar branch favors a catheter or wire fragment. 2. Findings most suggestive of heart failure with cardiomegaly, small volume pericardial effusion, and small bilateral pleural effusions and mild pulmonary edema. CT chest PE protocol 05/30 IMPRESSION: 1. Motion degraded evaluation of the pulmonary [...] LFTs. 5. Additional findings as described above. Assessment: MSSA bacteremia ? Suspected tricuspid valve endocarditis Documented at outside hospital, unknown date so far will follow-up with [facility]. 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. She underwent CHANCE, with no visible valve vegetation. Repeat blood cultures 05/30 remain no growth so far. She has AICD in place. ? Dislodged catheter/lead.. PA Atrial fibrillation CHF GERD Hypertension Obstructive sleep apnea Thyroid disease Intellectual disability Plan: Discussed with Dr. Neli Hutchinson, no vegetation seen on tricuspid valve. There is a dislodged lead/catheter? In Pulmonary artery, which is also reported in CT. There was a clot in [place]IK, probably an appendage clot, hence synchronized Cardioversion was canceled. Continue on Ancef for now Follow up on blood cultures. Monitor fever curve and WBC count. Please obtain records from [facility]. Thanks for Consulting Infectious Diseases. Will follow. Eben Pettit MD 05/31/2024 [place] [facility] Office: [phone] Fax: [phone] Voice recognition software was used to complete this document, therefore, skiver welt end variances may occur. * Merry Nelson NP - 05/30/2024 11:09 AM CDTAssociated Order(s): IP CONSULT TO CARDIOTHORACIC SURGERY No further need for CTS consult- discussed with cardiology and we spoke with Dr. Abernathy. Discussed with Dr. Alejandra. Merry Nelson NP * Ty Mcfarland MD - 05/30/2024 6:38 AM CDTAssociated Order(s): IP CONSULT TO CARDIOLOGY Images from the original note were not included. Cardiology initial Consult-[facility] Reason for Consult: Questionable Endocarditis, presence of cardiac device, atrial fibrillation Requesting Provider: Mike Hollis MD Cardiology initial Consult summary Questionable Endocarditis, will do transesophageal echo to assess for possible endocarditis. Synchronized cardioversion will be done at same time. Procedure is planned for morning presence of cardiac device, atrial fibrillation-the Tikosyn was ordered follow-up protocol Dislodged catheter - see primary care note from from IR. Cardiothoracic consult was requested by primary care team. Need for antibiotic as per Infectious Disease team Echo stat was ordered I discussed case with [employer]. We will be calling me with preliminary result. Please look for the line via or something else in pulmonary artery Please do that per echo stat this morning. The patient was seen examined by me Dr. Mcfarland in person. Pertinent information was reviewed these include but not limited to labs EKG and results chest x-ray and images. I reviewed pertinent of the available data. Will discuss case with Cardiothoracic team in more information is available Cardiology will follow with you and make additional recommendations as needed HPI: 63 y.o. female with history of afib, CHF, DM, GERD,HTN, Intellectual disability, OAB, JOSE, thyroid disease, AICD, PPM, Cholecystectomy. Presented to [facility] on with nausea, vomiting, diarrhea, and abdominal pain. Livesat home with her sister. Limited historian due to intellectual disability. She was ultimately found to have endocarditis. Persistent positive blood cultures for staph aureus. ED put on vanc, zosyn, and IVF initially Now on Ancef at transfer Currently complains of right neck pain radiating to her right ear. Pain also on right mastoid. No hearing change, tinnitus, or hearing loss. She has been a little SOB on laying down for the past few days. No chest pain, pressure, or discomfort. Cardiology consult was requested and I saw patient at around 6:00 a.m. this morning I am aware of the note with primary care Call put out to IR about dislodged catheter in pulmonary artery. Spoke with Dr. Abernathy, he asked for CT Surgery to evaluate non-emergently in the morning and determine if safe to remove I reviewed chest x-ray from 05/29/2024 11:15 p.m. I see marked pulmonary vasculature prominence cardiomegaly multiple outside wires but I not sure which wire IR is talking about. Patient has dual-chamber ICD in place with leads appearing to be in stable positions Past Medical History: Diagnosis Date A-fib (CMS/HCC) (HCC) CHF (congestive heart failure) (CMS/HCC) (HCC) Diabetes mellitus (HCC) GERD (gastroesophageal reflux disease) Hypertension Intellectual disability OAB (overactive bladder) Sleep apnea Thyroid disease Past Surgical History: Procedure Laterality Date CARDIAC DEFIBRILLATOR PLACEMENT CHOLECYSTECTOMY INSERT / REPLACE / REMOVE PACEMAKER Medications Prior to Admission Medication Sig Dispense Refill Last Dose BASAGLAR 100 unit/mL (3 mL) pen for injection Inject 18 Units under the skin daily carvediloL (COREG) 25 mg tablet Take 1 tablet (25 mg total) by mouth 2 (two) times a day with meals dilTIAZem (CARDIZEM) 30 mg tablet Take 1 tablet (30 mg total) by mouth 3 (three) times a day docusate sodium (COLACE) 100 mg capsule Take 1 capsule (100 mg total) by mouth 2 (two) times a day Entresto 24-26 mg tablet Take 1 tablet by mouth 2 (two) times a day escitalopram (LEXAPRO) 10 mg tablet Take 1 tablet (10 mg total) by mouth daily Farxiga 10 mg tablet Take 1 tablet (10 mg total) by mouth daily furosemide (LASIX) 40 mg tablet Take 1 tablet (40 mg total) by mouth daily nortriptyline (PAMELOR) 10 mg capsule Take 1 capsule (10 mg total) by mouth daily NovoLOG 100 unit/mL (3 mL) pen for injection Inject 10 Units under the skin 3 (three) times a day with meals potassium chloride ER 20 mEq CR tablet Take 1 tablet (20 mEq total) by mouth daily ferrous sulfate 325 mg (65 mg of elemental iron) tablet Take 1 tablet (325 mg total) by mouth dailywith breakfast Gemtesa 75 mg tablet Take 1 tablet by mouth daily levothyroxine (SYNTHROID) 75 mcg tablet Take 1 tablet (75 mcg total) by mouth every morning omeprazole (PriLOSEC) 20 mg capsule Take 1 capsule (20 mg total) by mouth daily Xarelto 20 mg tablet Take 1 tablet (20 mg total) by mouth daily with dinner Current Facility-Administered Medications: carvediloL (COREG) tablet 6.25 mg, 6.25 mg, oral, BID with meals (bkfst, dinner), Raji Hollis MD ceFAZolin (ANCEF) 2,000 mg/100 mL in dextrose (premix) 2,000 mg, 2,000 mg, intravenous, Q8H [facility], Mike Hollis MD, Last Rate: 200 mL/hr at 05/30/24 010, 2,000 mg at 05/30/24 010 dextrose oral liquid liquid 15 g, 15 g, oral, Q15 Min PRN OR dextrose (D10W) 10% bolus 250 mL, 250 mL, intravenous, Q15 Min PRN, Mike Hollis MD dilTIAZem (CARDIZEM) tablet 30 mg, 30 mg, oral, TID, Mike Hollis MD, 30 mg at docusate sodium (COLACE) capsule 100 mg, 100 mg, oral, BID PRN, Mike Hollis MD escitalopram (LEXAPRO) tablet 10 mg, 10 mg, oral, Daily, Mike Hollis MD ferrous sulfate delayed release tablet 65 mg of elemental iron, 65 mg of elemental iron, oral, Daily with breakfast, Mike Hollis MD furosemide (LASIX) 10 mg/mL injection 40 mg, 40 mg, intravenous, BID DIURETIC, Mike Hollis MD glucagon injection 1 mg, 1 mg, intramuscular, Q30 Min PRN, Mike Hollis MD HYDROcodone-acetaminophen (NORCO) 5-325 mg per tablet 1 tablet, 1 tablet, oral, QID PRN, Mike Hollis MD, 1 tablet at 05/30/24 005 insulin glargine (LANTUS, SEMGLEE) 100 unit/mL injection 14 Units, 14 Units, subcutaneous, QAM, Mike Hollis MD insulin lispro (HumaLOG, ADMELOG) 100 unit/mL injection 0-4 Units, 0-4 Units, subcutaneous, Nightly, Mike Hollis MD insulin lispro (HumaLOG, ADMELOG) 100 unit/mL injection 0-5 Units, 0-5 Units, subcutaneous, TID with meals, Mike Hollis MD levothyroxine (SYNTHROID) tablet 75 mcg, 75 mcg, oral, Daily - 0600, Mike Hollis MD nortriptyline (PAMELOR) capsule 10 mg, 10 mg, oral, Nightly, Mike Hollis MD, 10 mg at 05/30/24 005 ondansetron (ZOFRAN) injection 4 mg, 4 mg, intravenous, Q6H PRN, Mike Hollis MD pantoprazole DR (PROTONIX) extended release tablet 40 mg, 40 mg, oral, Daily, Mike Hollis MD polyethylene glycol (MIRALAX) packet 17 g, 17 g, oral, Daily PRN, Mike Hollis MD rivaroxaban (XARELTO) tablet 20 mg, 20 mg, oral, Daily with dinner FOLLOWED BY [DISCONTINUED] rivaroxaban (XARELTO) tablet 20 mg, 20 mg, oral, Daily with dinner, Mike Hollis MD sacubitriL-valsartan (ENTRESTO) 24-26 mg tablet 1 tablet, 1 tablet, oral, BID, Mike Hollis MD Allergies Allergen Reactions Sulfa (Sulfonamide Antibiotics) Social History Tobacco Use Smoking status: Never Smokeless tobacco: Never Substance and Sexual Activity Drug use: None Sexual activity: None Alcohol Use: Unknown (05/30/2024) AUDIT-C Frequency of Alcohol Consumption: Not on file Average Number of Drinks: Patient does not drink Frequency of Binge Drinking: Not on file No family history on file. Review of Systems: Constitutional: Negative for fever. HENT: Negative for sneezing. Respiratory: Negative for cough. Positive for shortness of breath Cardiovascular: Negative for chest pain. Gastrointestinal: Negative for vomiting. Negative for diarrhea. Genitourinary: Negative for dysuria. Musculoskeletal: Negative for arthralgias. Skin: Negative for rash. Neurological: Negative for seizure. Psychiatric/Behavioral: Negative for agitation. Objective Vitals: 24hr Min/Max: Temp Min: 36.4 ??C (97.5 ??F) Max: 36.6 ??C (97.9 ??F) Pulse Min: 97 Max: 99 BP Min: 127/75 Max: 135/84 Resp Min: 20 Max: 20 SpO2 Min: 93 % Max: 94 % Most Recent: Vitals: 05/30/24 0434 BP: 135/84 Pulse: 98 Resp: 20 Temp: 36.4 ??C (97.5 ??F) SpO2: 93% No intake/output data recorded. I/O this shift: In: 360 [P.O.:360] Out: - Physical Exam: General appearance: appears stated age and cooperative , very heavyset Head: Normocephalic, without obvious abnormality, atraumatic Eyes: conjunctivae clear ENT patient has no teeth. Tongue midline Neck: Normal thyroid size on palpation and supple, trachea midline Respiratory: clear to auscultation bilaterally and no rubs Vascular no obvious carotid bruit JVD cannot be appreciated Cardiology: Irregularly irregular rhythm mild systolic murmur at the apex radiating to axilla PMI displaced to the left but hard to appreciate due to body habitus. Gastrointestinal: Morbidly obese, soft, non-tender; no masses, no organomegaly Extremities: extremities normal warm and well-perfused Muscoskeletal: Diffuse joint deformity consistent with patient's age Skin: Skin color texture, turgor normal. No rashes or lesions Neurologic: No obvious focal weakness speech and gag is intact Lab/Radiology/Diagnostic Review: Laboratory review: Lab results in the last 24 hours: Recent Results (from the past 24 hour(s)) POCT glucose Collection Time: 05/29/24 8:02 PM Result Value Ref Range Glucose, POC 108 70 - 199 mg/dL CBC with auto differential Collection Time: 05/29/24 10:53 PM Result Value Ref Range WBC 8.6 3.8 - 9.9 K/cumm Hgb 12.2 11.9 - 15.5 g/dL Hct 36.9 35.6 - 45.5 % Plt 286 150 - 400 K/cumm MPV 10.0 9.1 - 12.3 fL RBC 3.76 (L) 3.90 - 5.20 M/cumm MCV 98.1 (H) 81.3 - 96.4 fL MCH 32.4 27.1 - 33.3 pg MCHC 33.1 32.3 - 35.7 g/dL RDW CV 14.6 11.1 - 14.9 % RDW SD 53.0 (H) 35.7 - 48.1 fL NRBC abs 0.00 0.00 - 0.01 K/cumm Basic metabolic panel Collection Time: 05/29/24 10:53 PM Result Value Ref Range Sodium 133 (L) 135 - 145 mmol/L Potassium, pl 5.1 (H) 3.3 - 4.9 mmol/L Chloride 98 97 - 110 mmol/L CO2 26 22 - 32 mmol/L Anion gap 9 2 - 15 mmol/L BUN 9 6 - 25 mg/dL Creatinine 0.58 (L) 0.60 - 1.10 mg/dL Glucose 90 70 - 199 mg/dL Calcium 8.6 8.5 - 10.3 mg/dL Magnesium Collection Time: 05/29/24 10:53 PM Result Value Ref Range Magnesium 2.2 1.4 - 2.5 mg/dL aPTT Collection Time: 05/29/24 10:53 PM Result Value Ref Range aPTT 28 28 - 38 sec Lactate Collection Time: 05/29/24 10:53 PM Result Value Ref Range Lactate 1.5 0.7 - 2.0 mmol/L Protime-INR Collection Time: 05/29/24 10:53 PM Result Value Ref Range PT 15.4 (H) 9.7 - 13.0 sec INR 1.42 (H) 0.90 - 1.20 Hepatic function panel Collection Time: 05/29/24 10:53 PM Result Value Ref Range Bilirubin, total 0.9 0.1 - 1.2 mg/dL Bilirubin, direct 0.2 0.1 - 0.3 mg/dL Protein, pl 6.9 6.5 - 8.5 g/dL Albumin 2.7 (L) 3.5 - 5.0 g/dL Alk phos 398 (H) 40 - 130 Units/L ALT 14 7 - 45 Units/L AST 51 (H) 10 - 45 Units/L Differential, auto Collection Time: 05/29/24 10:53 PM Result Value Ref Range Neutrophil abs 6.0 1.5 - 6.5 K/cumm Imm gran abs 0.1 0.0 - 0.1 K/cumm Lymphocyte abs 1.6 0.8 - 3.3 K/cumm Monocyte abs 0.8 0.2 - 0.8 K/cumm Eosinophil abs 0.1 0.0 - 0.5 K/cumm Basophil abs 0.1 0.0 - 0.1 K/cumm Neutrophil pct 69.3 % Imm gran pct 1.4 % Lymphocyte pct 18.2 % Monocyte pct 8.7 % Eosinophil pct 1.6 % Basophil pct 0.8 % eGFR Collection Time: 05/29/24 10:53 PM Result Value Ref Range eGFR >90 >=60 mL/min/1.73 m2 Pro B-type natriuretic peptide Collection Time: 05/29/24 11:00 PM Result Value Ref Range NT-proBNP 6,018 (H) <=300 pg/mL Troponin T high-sensitivity series (baseline, 2hr, 4hr, 6hr) Collection Time: 05/29/24 11:00 PM Result Value Ref Range Trop T hs 24 (H) <=14 ng/L POCT glucose Collection Time: 05/30/24 12:50 AM Result Value Ref Range Glucose, POC 129 70 - 199 mg/dL CBC with auto differential Collection Time: 05/30/24 4:28 AM Result Value Ref Range WBC 10.5 (H) 3.8 - 9.9 K/cumm Hgb 11.3 (L) 11.9 - 15.5 g/dL Hct 35.8 35.6 - 45.5 % Plt 283 150 - 400 K/cumm MPV 9.4 9.1 - 12.3 fL RBC 3.53 (L) 3.90 - 5.20 M/cumm MCV 101.4 (H) 81.3 - 96.4 fL MCH 32.0 27.1 - 33.3 pg MCHC 31.6 (L) 32.3 - 35.7 g/dL RDW CV 14.6 11.1 - 14.9 % RDW SD 54.4 (H) 35.7 - 48.1 fL NRBC abs 0.00 0.00 - 0.01 K/cumm Troponin T high-sensitivity 4-hour Collection Time: 05/30/24 4:28 AM Result Value Ref Range Trop T hs 26 (H) <=14 ng/L Trop T hs delta See Comment ng/L Trop T hs pct delta See Comment % Trop T hs interp See Comment Differential, auto Collection Time: 05/30/24 4:28 AM Result Value Ref Range Neutrophil abs 8.0 (H) 1.5 - 6.5 K/cumm Imm gran abs 0.1 0.0 - 0.1 K/cumm Lymphocyte abs 1.4 0.8 - 3.3 K/cumm Monocyte abs 0.8 0.2 - 0.8 K/cumm Eosinophil abs 0.1 0.0 - 0.5 K/cumm Basophil abs 0.1 0.0 - 0.1 K/cumm Neutrophil pct 76.0 % Imm gran pct 1.3 % Lymphocyte pct 13.4 % Monocyte pct 7.8 % Eosinophil pct 0.9 % Basophil pct 0.6 % Troponin T high-sensitivity 6-hour Collection Time: 05/30/24 6:20 AM Result Value Ref Range Trop T hs delta See Comment ng/L Trop T hs pct delta See Comment % Trop T hs interp See Comment Lipids: No results found for: CHOL , CHLPL , HDL , LDLCALC , TRIG , CHOLHDL and Cardiac Enzymes: No results found for: CKTOTAL , CKMB , CKMBINDEX , TROPONINT ECG 12 lead Order: [id number] Status: Final result Visible to patient: No (inaccessible in MyChart) Next appt: None 0 Result Notes Details Narrative Vent Rate: 93 bpm RR Interval: 645 msec HI Interval: 0 msec QRS Duration: 97 msec QT Interval: 197 msec QTC Interval: 247 msec P-R-T [place]: 0 - 118 - 0 degrees IMPRESSION: ATRIAL FIBRILLATION WITH ABERRANT CONDUCTION OR VENTRICULAR PREMATURE COMPLEXES LOW QRS VOLTAGE [QRS DEFLECTION < 0.5/1.0 mV IN LIMB/CHEST LEADS] SEPTAL MYOCARDIAL INFARCTION , PROBABLY OLD [40+ ms Q WAVE IN V1/V2] Nonspecific IVCD LATERAL MYOCARDIAL INFARCTION , OF INDETERMINATE AGE [40+ ms Q WAVE AND/OR ST/T ABNORMALITY IN I/aVL/V5/V6] ABNORMAL ECG Electronically Signed By: Antonio Carlos MD Specimen Collected: 05/29/24 22:29 Last Resulted: 05/30/24 06:24 Latest Reference Range & Units Most Recent Albumin 3.5 - 5.0 g/dL 2.8 (L) 05/30/24 04:28 (L): Data is abnormally low Latest Reference Range & Units 05/30/24 04:28 Potassium, pl 3.3 - 4.9 mmol/L 4.6 Latest Reference Range & Units 05/30/24 04:28 Creatinine 0.60 - 1.10 mg/dL 0.74 Latest Reference Range & Units 05/30/24 04:28 eGFR >=60 mL/min/1.73 m2 >90 Latest Reference Range & Units 05/30/24 04:28 Magnesium 1.4 - 2.5 mg/dL 2.1 CXR: I reviewed chest x-ray from 05/29/2024 11:15 p.m. I see marked pulmonary vasculature prominence cardiomegaly multiple outside wires but I not sure which wire IR is talking about. Patient has dual-chamber ICD in place with leads appearing to be in stable positions Assessment /Plan Principal Problem: Endocarditis Active Problems: SOB (shortness of breath) Acute on chronic systolic congestive heart failure (CMS/HCC) (HCC) Neck pain Hyponatremia Chronic a-fib (CMS/HCC) (HCC) Type 2 diabetes mellitus, with long-term current use of insulin (HCC) Hypothyroid JOSE (obstructive sleep apnea) Impression recommendations Questionable Endocarditis, will do transesophageal echo to assess for possible endocarditis. Synchronized cardioversion will be done at same time. Procedure is planned for morning presence of cardiac device, atrial fibrillation-the Tikosyn was ordered follow-up protocol Dislodged catheter - see primary care note from from IR. Cardiothoracic consult was requested by primary care team. Need for antibiotic as per Infectious Disease team The patient was seen examined by me Dr. Mcfarland in person. Pertinent information was reviewed these include but not limited to labs EKG and results chest x-ray and images. I reviewed pertinent of the available data. Will discuss case with Cardiothoracic team in more information is available Cardiology will follow with you and make additional recommendations as needed Echo stat was ordered I discussed case with [employer]. We will be calling me with preliminary result. Please look for the line via or something else in pulmonary artery Please do that per echo stat this morning. documented in this encounter Nursing Notes * Raghavendra Vaz - 06/05/2024 5:58 PM CDT PICC line was inserted, no bleeding noted on the site, with small hematoma on the previous site thevascular nurse attempted to insert. Patient requested for a pain see MAR. * Pauly Wilburn RN - 06/05/2024 3:09 PM CDT Sterile CHG dressing applied to site. * Angel Calloway Jr., RN - 06/05/2024 11:35 AM CDT Multiple attempts made to place a PICC line in both upper extremities were unsuccessful.Hematoma noted to right upper extremity after failed attempt to place PICC line Manual pressure held until bleeding subsided. Ice ariane applied and arm elevated on a pillow. Patient's RN to monitor. * Ovidio Berg RN - 05/30/2024 9:32 AM CDT This RN to pt room for sacral assessment. No wounds noted to bilateral buttocks or sacrum. Hyperpigmentation noted to perianal area. Pt able to demonstrate self turns at time of assessment. Pt appears free from FAN at this time. BS: 19. Pt soiled with urine output. Pt cleansed and pad changed. Cavilon applied to bilateral buttocks and sacrum. Pt set up for breakfast at this time. 05/30/24 0929 Hygiene Perineal Care Catalina Care Linens Absorbent pad changed Activity/Mobility Activity Resting in bed;Turn Patient Assistance Modified independent, requires aide device or extra time Repositioned Left Side;Right Side;Supine;High Fowlers Head of Bed Elevated HOB 90 Heels/Feet Interventions Off documented in this encounter Miscellaneous Notes * Plan of Care - Evelyn Ford RN - 06/08/2024 4:45 PM CDT Patient approval number: auth # [id number] approved 06/08-06/14 * Plan of Care - Evelyn Ford RN - 06/08/2024 4:39 PM CDT Patient will be discharging to [facility] Call report to [phone] fax [phone] Patient will have to be transported by [facility]. 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 Alert and oriented x 4. Contact assist when ambulating Patient turns self as needed,up to chair as tolerated. Ecchymosis size declining, medications givenper EMAR. Patient denies pain at this time. One episode of incontinence of stool, bath given, catalina care provided. Patient denies pain, safety maintained, remain free from fall. Blood sugar stability achieved, vital sign stability achieved. No skin breakdown noted, patient continues to adequately call for assistance as needed. Patient discharge education completed, verbalized understanding. Patient belongings returned and left via [facility] transport to SNF. Report given by Lawson DASILVA to [facility] in [place] to [place] DASILVA Problem: Discharge Planning Goal: Understanding discharge needs will improve Outcome: Progressing Problem: Skin Integrity Impairment Risk Goal: Mobility will improve Outcome: Progressing Goal: Understanding of ways to prevent future skin breakdown will improve Outcome: Progressing Goal: Nutritional status will improve Outcome: Progressing Goal: Risk for impaired skin integrity will decrease Outcome: Progressing Problem: Lack of Knowledge Goal: [...] care needs will improve Outcome: Progressing Problem: Cardiovascular Goal: Absence of cardiac dysrhythmias or at baseline Outcome: Progressing Problem: Musculoskeletal Goal: Return ADL status to a safe level of function Outcome: Progressing Goal: Ability to perform activities at highest level will improve Outcome: Progressing Problem: Fall Risk Goal: Ability to state ways to decrease the risk of falls will improve Outcome: Progressing Goal: Will remain free from falls Outcome: Progressing Goal: Will remain free from injury from falls Outcome: Progressing * Plan of Care - Evelyn Ford RN - 06/08/2024 3:14 PM CDT Chart review for discharge planning: Insurance is asking for more information this note was sent tot pac team to address any barriers to her discharging to SNF at [facility]: Lei Rodriguez is a 63 year old female with PMHx of Afib, CHF, T2DM, GERD, HTN, intellectual disability, JOSE, AICD, hypothyroidism who presented to on 05/29 with abdominal pain. Limited historian due to intellectual disability. Evelyn Ford Instructor [employer] [phone] * Plan of Care - Evelyn Ford RN - 06/08/2024 12:06 PM CDT 06/08/24 1206 Discharge Planning Support System Family members Medication Assistance Yes Anticipated discharge level of care assisted facility (short term care) Does the patient need discharge transport arranged? Yes Type of Transportation Ambulance Has discharge transport been arranged? No Details of Transportation Pending Auth Discharge Transportation Communication Mode of transport has been discussed with the patient/family. All are agreeable to the plan and understand their responsibilities to ensure the safe transfer. No further CM/SW intervention is anticipated at this time. Post Acute Care Plan Home Care Services N/A OP Services N/A DME N/A Post Acute Care Facility Yes Referral Status Started Discussed in IDR this morning, Auth is still pending for this patient Auth was started 2 days ago. CM checked with the pac team. If Auth does not come back today it may be Tuesday before patient can leave. CM will continue to follow and assist with discharge planning as needed. Update Attempted to phone [facility], was not successful d/t CM being on hold for several minutes. Evelyn Ford Instructor [employer] [phone] * Medical Student - Franky Griffin - 06/08/2024 8:33 AM CDT HOSPITALIST PROGRESS NOTE PCP: Oswaldo Serrano [phone] Admit Date: 05/29/2024 5:34 PM LOS: 10 CHIEF COMPLAINT/ BRIEF HOSPITAL COURSE Lei Rodriguez is a 63 year old female with PMHx of Afib, CHF, T2DM, GERD, HTN, intellectual disability, JOSE, AICD, hypothyroidism who presented to on 05/29 with abdominal pain. Limited historian due to intellectual disability. She initially presented to [facility] on 05/[facility] with n/v/dand abdominal pain. She was found to have endocarditis with positive blood cultures growing staph au reus. She was started on vanc, zosyn, and IVF initially, now she is on ancef. She was also complaining of right neck pain, but was found to have no acute pathology on CT head and CT C-spine. On 05/30,dislodged catheter vs wire seen in right pulm artery on CT chest and echo was showing possible TV vegetation. CHANCE performed showing no TV vegetation, but presence of catheter vs wire in right pulm artery and left atrial appendage clot. Risks/benefits discussed with IR and CTS with no plan for surgical intervention. She is being followed by ID for antibiotic management. No blood cultures to date. Initially, end date for ancef was 06/08, but switched to 06/22 to complete 4 weeks due to AICD in place. PICC line was placed on 06/05 but had RUE swelling. CXR on 06/06 showing successful placement. CTA RUE was ordered on 06/06 due to worsening swelling which showed no hematomas. INTERVAL HISTORY Patient was sleeping in bed. She states her RUE is still sore. Per RN, reduced swelling of PICC line, no other complaints. REVIEW OF SYSTEMS Review of Systems Constitutional: Negative. HENT: Negative. Eyes: Negative. Respiratory: Negative. Cardiovascular: Negative. Gastrointestinal: Negative. Endocrine: Negative. Genitourinary: Negative. Musculoskeletal: Positive for neck pain. Skin: Negative. Allergic/Immunologic: Negative. Neurological: Negative. Hematological: Negative. Psychiatric/Behavioral: Negative. Breast: Negative. EXAM Vitals: 06/08/24 0757 BP: 127/85 Pulse: 107 Resp: 20 Temp: 36.4 ??C (97.5 ??F) SpO2: 93% Physical Exam Constitutional: Appearance: Normal appearance. She is obese. HENT: Head: Normocephalic and atraumatic. Nose: Nose normal. Eyes: Extraocular Movements: Extraocular movements intact. Pupils: Pupils are equal, round, and reactive to light. Cardiovascular: Rate and Rhythm: Normal rate and regular rhythm. Heart sounds: No murmur heard. Pulmonary: Effort: Pulmonary effort is normal. Breath sounds: Normal breath sounds. Abdominal: General: Bowel sounds are normal. There is no distension. Palpations: Abdomen is soft. Tenderness: There is no abdominal tenderness. Musculoskeletal: Cervical back: Normal range of motion. Skin: General: Skin is warm and dry. Comments: RUE hematoma at PICC line location, warm, pulses palpable Neurological: General: No focal deficit present. Mental Status: She is alert. Scheduled Meds: carvediloL, 6.25 mg, oral, BID with meals (bkfst, dinner) ceFAZolin, 2,000 mg, intravenous, Q8H GALINA dilTIAZem, 30 mg, oral, TID dofetilide, 500 mcg, oral, BID escitalopram, 10 mg, oral, Daily ferrous sulfate, 65 mg of elemental iron, oral, Daily with breakfast furosemide, 40 mg, intravenous, BID DIURETIC insulin glargine, 18 Units, subcutaneous, QAM insulin lispro, 0-4 Units, subcutaneous, Nightly insulin lispro, 0-5 Units, subcutaneous, TID with meals insulin lispro, 10 Units, subcutaneous, TID with meals levothyroxine, 75 mcg, oral, Daily - 0600 midodrine, 5 mg, oral, TID AC nortriptyline, 10 mg, oral, Nightly pantoprazole DR, 40 mg, oral, Daily rivaroxaban, 20 mg, oral, Daily with dinner sacubitriL-valsartan, 1 tablet, oral, BID sodium chloride 0.9%, 5-10 mL, intra-catheter, Q12H GALINA Continuous Infusions: PRN Meds:. ??? dextrose, 15 g OR dextrose, 250 mL ??? docusate sodium, 100 mg ??? glucagon, 1 mg ??? HYDROcodone-acetaminophen, 1 tablet, 1 tablet at 06/06/24 1914 ??? ondansetron, 4 mg ??? polyethylene glycol, 17 g, 17 g at 06/04/24 1043 ??? sodium chloride 0.9%, 5-20 mL Diet: Dietary Orders (From admission, onward) Start Ordered 06/05/24 1532 Adult Diet Restricted; Low Fat, Low Chol, Low Na; Consistent Carb 2000 kilo Diet effective now Question Answer Comment (CH) Diet type Restricted Fat / Sodium Restriction: Low Fat, Low Chol, Low Na Diabetic: Consistent Carb 2000 kilo 06/05/24 1540 05/30/24 2100 Bedtime snack At bedtime Comments: If bedtime BG is less than 100mg/dl, give patient a 15 gram carbohydrate snack. 05/29/24 2201 ASSESSMENT AND PLAN All Diagnosis Present on Admission Unless Otherwise Stated: Principal Problem: Endocarditis Active Problems: SOB (shortness of breath) Acute on chronic systolic congestive heart failure (CMS/HCC) (HCC) Neck pain Hyponatremia Chronic a-fib (CMS/HCC) ([facility]) Type 2 diabetes mellitus, with long-term current use of insulin (HCC) Hypothyroid JOSE (obstructive sleep apnea) Diabetes mellitus with hyperglycemia (CMS/HCC) ([facility]) Traumatic hematoma of right upper arm Hypotension Endocarditis -Continue ancef until 06/22 per ID -Echo showing catheter/wire in right pulm artery with left atrial appendage clot, no TV vegetation -ID and cardiology following Dislodged catheter vs wire -Possible catheter/wire in right pulm artery, no surgical intervention planned per IR and CTS RUE Hematoma -Obtained during PICC line placement -US doppler RUE ordered showing no acute DVT -Had worsening swelling on 06/06, pending CTA RUE Acute on chronic systolic CHF -Echo EF 30% -Continue IV lasix, entresto, coreg Chronic Afib -Continue coreg, diltizaem, xarelto, tikosyn -CHANCE showing left atrial appendage clot Neck pain -CT head/C-spine no acute pathology T2DM -SSI Hypothyroidism -Continue synthroid DVT ppx: Xarelto Medical Decision Making Complexity: High Consulting physicians: Treatment Team: Consulting Physician: Pastora Flores MD; Consulting Physician: Manuel Ludwig MD Disposition: SNF Code status: Full Code Voice recognition software MModal Fluency Direct was used dictate and transcribe this document. Director E Learning variances may occur. Despite proofreading, typographical errors may occur. IAN Little-IV Cosigned by Coleen Samuels MD at 06/08/2024 3:16 PM CDT * Plan of Care - Anta Lebron I. - 06/08/2024 12:41 AM CDT Problem: Discharge Planning Goal: Understanding discharge needs will improve Outcome: Progressing Flowsheets (Taken 05/29/20241952 by Kristy Pepper, RN) Understanding of discharge needs will improve: Collaborate with case management interdisciplinary team Problem: Skin Integrity Impairment Risk Goal: Mobility will improve Outcome: Progressing Flowsheets (Taken 05/29/20241952 by Kristy Pepper, RN) Mobility will improve: Assess circulation, sensation and/or motion of extremity Collaborate with physical therapy Encourage mobilization to extent of ability, assist with range of motion as needed Goal: Understanding of ways to prevent future skin breakdown will improve Outcome: Progressing Flowsheets (Taken 05/31/2024226 by Ranjit Perdomo) Understanding of ways to prevent future skin breakdown will improve: Discuss treatments to protect skin integrity Goal: Nutritional status will improve Outcome: Progressing Flowsheets (Taken 06/08/202435) Nutritional status will improve: Encourage fluid intake Goal: Risk for impaired skin integrity will decrease Outcome: Progressing Flowsheets (Taken 06/08/202435) Risk for impaired skin integrity will decrease: Identify risk factors for impaired skin integrity and/or pressure injuries Implement precautions to protect skin integrity Monitor skin integrity, appearance and temperature Protect skin from pressure due to medical devices when appropriate Problem: Lack of Knowledge Goal: Ability to develop a pain control plan will improve Outcome: Progressing Flowsheets (Taken 06/08/202435) Ability to develop a pain control plan will improve: Educate pain scale for assessing level of pain Explain causes of pain and how long pain can be expected to last Teach information regarding pain management Teach notification to healthcare provider of episodes of pain Problem: Medication Goal: Satisfaction with pain management medication regimen will improve Outcome: Progressing Flowsheets (Taken 06/08/202435) Satisfaction with pain management medication regimen will improve: Assess satisfaction with pain management regimen Evaluate medication effects Manage analgesics Monitor patient controlled analgesia or anesthesia Provide administration of medications prior to painful activities Report inadequate pain control to healthcare provider Problem: Sensory Goal: Ability to identify factors that increase pain levels will improve while working to decrease the patient's pain levels Outcome: Progressing Flowsheets (Taken 06/07/2024104 by Agnieszka Conroy, RN) Ability to identify factors that increase pain levels will improve while working to decrease patients pain levels: Assess pain status Observe non-verbal cues of discomfort, such as restlessness, muscle tension, or altered vital signs Problem: Coping Goal: Ability to cope will improve Outcome: Progressing Flowsheets (Taken 06/07/2024104 by Agnieszka Conroy, RN) Ability to cope will Improve: Assess beliefs of pain Problem: Health Behavior Goal: Identification of resources available to assist in meeting health care needs will improve Outcome: Progressing Problem: Cardiovascular Goal: Absence of cardiac dysrhythmias or at baseline Outcome: Progressing Flowsheets (Taken 06/08/202435) Absence of cardiac dysrhythmias or at baseline: Continuous cardiac monitoring, monitor vital signs, obtain 12 lead EKG if indicated Administer antiarrhythmic and heart rate control medications as ordered Monitor electrolytes and administer replacement therapy as ordered Initiate emergency measures for life threatening arrhythmias Problem: Musculoskeletal Goal: Return ADL status to a safe level of function Outcome: Progressing Flowsheets (Taken 06/07/2024104 by Agnieszka Conroy, RN) Return activities of daily living status to a safe level of function: Assess patient's activities of daily living deficits and provide assistive devices as needed Assist and instruct patient to increase activity and self care Goal: Ability to perform activities at highest level will improve Outcome: Progressing Problem: Fall Risk Goal: Ability to state ways to decrease the risk of falls will improve Outcome: Progressing Flowsheets (Taken 06/07/2024104 by Agnieszka Conroy, RN) Ability to state ways to decrease the risk of falls will improve: Teach fall prevention measures Teach information regarding appropriate enviornmental changes Goal: Will remain free from falls Outcome: Progressing Flowsheets (Taken 06/07/2024104 by Agnieszka Conroy RN) Will remain free from falls: Assess risk factors for falls Implement fall prevention measures Goals: Clinical Goals for the Shift: fall prevention, VSS Principal Mechanical Engineer Patient Centered Goal for Treatment: Better health, [place] home Summary: * Plan of Care - Lawson Austin RN - 06/07/2024 2:34 PM CDT Goals: Clinical Goals for the Shift: VS, bathroom assistance, fall preventions, diet, medications, test- CTA Usp Patient Centered Goal for Treatment: Better health, [place] home Summary: Assumed patient care at 0700. Patient on telemetry AF with occasional A pacing, Room air, denies any pain at this time. Patient up in chair alert and oriented times 4. Contact assist with gait belt, patient able to perform moderate self hygiene. Patient given medication per EMAR. Peripheral IV's removed. Central line dressing R upper medial arm changed and dated, ecchymosis observed to be reducing in size. Patient continues antibiotic regiment. Tele discontinued per orders Patient denies pain, free from falls, CHG bath given. No skin breakdown noted. Patient resting comfortably, denies any needs at this time Problem: Discharge Planning Goal: Understanding discharge needs will improve Outcome: Progressing Problem: Skin Integrity Impairment Risk Goal: Mobility will improve Outcome: Progressing Goal: Understanding of ways to prevent future skin breakdown will improve Outcome: Progressing Goal: Nutritional status will improve Outcome: Progressing Goal: Risk for impaired skin integrity will decrease Outcome: Progressing Problem: Lack of Knowledge Goal: [...] care needs will improve Outcome: Progressing Problem: Cardiovascular Goal: Absence of cardiac dysrhythmias or at baseline Outcome: Progressing Problem: Musculoskeletal Goal: Return ADL status to a safe level of function Outcome: Progressing Goal: Ability to perform activities at highest level will improve Outcome: Progressing Problem: Fall Risk Goal: Ability to state ways to decrease the risk of falls will improve Outcome: Progressing Goal: Will remain free from falls Outcome: Progressing Goal: Will remain free from injury from falls Outcome: Progressing * Medical Student - Franky Griffin - 06/07/2024 8:39 AM CDT HOSPITALIST PROGRESS NOTE PCP: Oswaldo Serrano [phone] Admit Date: 05/29/2024 5:34 PM LOS: 9 CHIEF COMPLAINT/ BRIEF HOSPITAL COURSE Lei Rodriguez is a 63 year old female with PMHx of Afib, CHF, T2DM, GERD, HTN, intellectual disability, JOSE, AICD, hypothyroidism who presented to on 05/29 with abdominal pain. Limited historian due to intellectual disability. She initially presented to [facility] on 05/21 with n/v/dand abdominal pain. She was found to have endocarditis with positive blood cultures growing staph au reus. She was started on vanc, zosyn, and IVF initially, now she is on ancef. She was also complaining of right neck pain, but was found to have no acute pathology on CT head and CT C-spine. On 05/30,dislodged catheter vs wire seen in right pulm artery on CT chest and echo was showing possible TV vegetation. CHANCE performed showing no TV vegetation, but presence of catheter vs wire in right pulm artery and left atrial appendage clot. Risks/benefits discussed with IR and CTS with no plan for surgical intervention. She is being followed by ID for antibiotic management. No blood cultures to date. Initially, end date for ancef was 06/08, but switched to 06/22 to complete 4 weeks due to AICD in place. PICC line was placed on 06/05 but had RUE swelling. CXR on 06/06 showing successful placement. 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 PICC line was flushed and US showing no acute DVT. Pt was given xarelto. CTA RUE was ordered. Patient is doing well other than her pain in her RUE. She is sitting in her recliner. Denies any cp, sob, n/v/d. No BM for the past 2 days. She reports having some reflux with food. REVIEW OF SYSTEMS Review of Systems Respiratory: Negative for shortness of breath. Cardiovascular: Negative for chest pain. Gastrointestinal: Negative for abdominal pain, blood in stool, diarrhea, nausea and vomiting. Musculoskeletal: Positive for neck pain. Neurological: Negative for headaches. EXAM Vitals: 06/07/24 0516 BP: Pulse: 86 Resp: Temp: SpO2: Physical Exam Constitutional: Appearance: Normal appearance. She is obese. HENT: Head: Normocephalic and atraumatic. Nose: Nose normal. Eyes: Extraocular Movements: Extraocular movements intact. Pupils: Pupils are equal, round, and reactive to light. Cardiovascular: Rate and Rhythm: Normal rate and regular rhythm. Heart sounds: No murmur heard. Pulmonary: Effort: Pulmonary effort is normal. Breath sounds: Normal breath sounds. Abdominal: General: Bowel sounds are normal. There is no distension. Palpations: Abdomen is soft. Tenderness: There is no abdominal tenderness. Musculoskeletal: Cervical back: Normal range of motion. Skin: General: Skin is warm and dry. Comments: RUE hematoma at PICC line location, warm, pulses palpable Neurological: General: No focal deficit present. Mental Status: She is alert. Scheduled Meds: carvediloL, 6.25 mg, oral, BID with meals (bkfst, dinner) ceFAZolin, 2,000 mg, intravenous, Q8H GALINA dilTIAZem, 30 mg, oral, TID dofetilide, 500 mcg, oral, BID escitalopram, 10 mg, oral, Daily ferrous sulfate, 65 mg of elemental iron, oral, Daily with breakfast furosemide, 40 mg, intravenous, BID DIURETIC insulin glargine, 18 Units, subcutaneous, QAM insulin lispro, 0-4 Units, subcutaneous, Nightly insulin lispro, 0-5 Units, subcutaneous, TID with meals insulin lispro, 10 Units, subcutaneous, TID with meals levothyroxine, 75 mcg, oral, Daily - 0600 midodrine, 5 mg, oral, TID AC nortriptyline, 10 mg, oral, Nightly pantoprazole DR, 40 mg, oral, Daily rivaroxaban, 20 mg, oral, Daily with dinner sacubitriL-valsartan, 1 tablet, oral, BID sodium chloride 0.9%, 5-10 mL, intra-catheter, Q12H GALINA Continuous Infusions: PRN Meds:. ??? dextrose, 15 g OR dextrose, 250 mL ??? docusate sodium, 100 mg ??? glucagon, 1 mg ??? HYDROcodone-acetaminophen, 1 tablet, 1 tablet at 06/06/24 1914 ??? ondansetron, 4 mg ??? polyethylene glycol, 17 g, 17 g at 06/04/24 1043 ??? sodium chloride 0.9%, 5-20 mL Diet: Dietary Orders (From admission, onward) Start Ordered 06/05/24 1532 Adult Diet Restricted; Low Fat, Low Chol, Low Na; Consistent Carb 2000 kilo Diet effective now Question Answer Comment (CH) Diet type Restricted Fat / Sodium Restriction: Low Fat, Low Chol, Low Na Diabetic: Consistent Carb 2000 kilo 06/05/24 1540 05/30/24 2100 Bedtime snack At bedtime Comments: If bedtime BG is less than 100mg/dl, give patient a 15 gram carbohydrate snack. 05/29/24 2201 ASSESSMENT AND PLAN All Diagnosis Present on Admission Unless Otherwise Stated: Principal Problem: Endocarditis Active Problems: SOB (shortness of breath) Acute on chronic systolic congestive heart failure (CMS/HCC) (HCC) Neck pain Hyponatremia Chronic a-fib (CMS/HCC) ([facility]) Type 2 diabetes mellitus, with long-term current use of insulin (HCC) Hypothyroid JOSE (obstructive sleep apnea) Diabetes mellitus with hyperglycemia (CMS/HCC) ([facility]) Traumatic hematoma of right upper arm Hypotension Endocarditis -Continue ancef until 06/22 per ID -Echo showing catheter/wire in right pulm artery with left atrial appendage clot, no TV vegetation -ID and cardiology following Dislodged catheter vs wire -Possible catheter/wire in right pulm artery, no surgical intervention planned per IR and CTS RUE Hematoma -Obtained during PICC line placement -US doppler RUE ordered showing no acute DVT -Had worsening swelling on 06/06, pending CTA RUE Acute on chronic systolic CHF -Echo EF 30% -Continue IV lasix, entresto, coreg Chronic Afib -Continue coreg, diltizaem, xarelto, tikosyn -CHANCE showing left atrial appendage clot Neck pain -CT head/C-spine no acute pathology T2DM -SSI Hypothyroidism -Continue synthroid DVT ppx: Xarelto Medical Decision Making Complexity: High Consulting physicians: Treatment Team: Consulting Physician: Pastora Flores MD; Consulting Physician: Manuel Ludwig MD Disposition: Code status: Full Code Voice recognition software [employer] [place] [employer] Direct was used dictate and transcribe this document. Director E Learning variances may occur. Despite proofreading, typographical errors may occur. Franky Griffin OMS-IV Cosigned by Coleen Samuels MD at 06/07/2024 3:37 PM CDT * Plan of Care - Agnieszka Conroy RN - 06/07/2024 1:06 AM CDT Problem: Skin Integrity Impairment Risk Goal: Mobility will improve Outcome: Progressing Flowsheets (Taken 05/29/20241952 by Kristy Pepper, RN) Mobility will improve: Assess circulation, sensation and/or motion of extremity Collaborate with physical therapy Encourage mobilization to extent of ability, assist with range of motion as needed Problem: Skin Integrity Impairment Risk Goal: Understanding of ways to prevent future skin breakdown will improve Flowsheets (Taken 05/31/2024226 by Ranjit Perdomo) Understanding of ways to prevent future skin breakdown will improve: Discuss treatments to protect skin integrity Problem: Lack of Knowledge Goal: Ability to develop a pain control plan will improve Flowsheets (Taken 06/07/2024104) Ability to develop a pain control plan will improve: Explain causes of pain and how long pain can be expected to last Educate pain scale for assessing level of pain Problem: Medication Goal: Satisfaction with pain management medication regimen will improve Flowsheets (Taken 06/07/2024104) Satisfaction with pain management medication regimen will improve: Assess satisfaction with pain management regimen Evaluate medication effects Problem: Sensory Goal: Ability to identify factors that increase pain levels will improve while working to decrease the patient's pain levels Flowsheets (Taken 06/07/2024104) Ability to identify factors that increase pain levels will improve while working to decrease patients pain levels: Assess pain status Observe non-verbal cues of discomfort, such as restlessness, muscle tension, or altered vital signs Problem: Coping Goal: Ability to cope will improve Flowsheets (Taken 06/07/2024104) Ability to cope will Improve: Assess beliefs of pain Problem: Musculoskeletal Goal: Return ADL status to a safe level of function Flowsheets (Taken 06/07/2024104) Return activities of daily living status to a safe level of function: Assess patient's activities of daily living deficits and provide assistive devices as needed Assist and instruct patient to increase activity and self care Problem: Fall Risk Goal: Ability to state ways to decrease the risk of falls will improve Flowsheets (Taken 06/07/2024104) Ability to state ways to decrease the risk of falls will improve: Teach fall prevention measures Teach information regarding appropriate enviornmental changes Goal: Will remain free from falls Flowsheets (Taken 06/07/2024104) Will remain free from falls: Assess risk factors for falls Implement fall prevention measures Goal: Will remain free from injury from falls Flowsheets (Taken 06/07/2024104) Will remain free from injury from falls: Provide safe environment for conduction of activities of daily living in hospital environment Goals: Clinical Goals for the Shift: VS, bathroom assistance, fall preventions, diet, medications, test- CTA Usp Patient Centered Goal for Treatment: Better health, [place] home * Significant Event - Edilberto Corral DO - 06/06/2024 7:04 PM CDT RACK ROOM WORKER called for worsening RUE swelling and bruising after picc line placement. Per nurse pt c/o right hand tingling and coldness. On my eval. Arm was warm with good pulses there is a decent sized hematoma. Picc line fluses. RUE US was done earlier showing no acute DVT. Pt received xarelto at 1800. Vitals stable, bp soft however at baseline. Constitutional: Awake, NAD HEENT: Atraumatic, normocephalic, EOMI, ext ear canals atraumatic Cardio: RRR, S1/S2, no murmurs Lungs: CTABL, no wheezes, rhonchi or crackles Gi: abd soft, Nt, Nd, +BS Ext: Positive right upper extremity edema with hematoma, no cyanosis, pulses intact Assessment and plan Right upper extremity hematoma. Good pulses good blood flow. Patient on chronic Xarelto for AFib I have drawn a [place] around the hematoma if it continues to expand will need to hold his role toe. Inthe meantime will check a CTA to rule out active bleeding. Pain control with [place]. Given the bloodpressure is soft and patient has been receiving [place] will add on midodrine to compensate for the blood pressure drop of the opioid. Monitor hb Hypotension - baseline hypotensive, add midodrine for ocncern of future drop of bp Critical Care Time: I have spent 35 minutes in full attendance with this critically ill patient making frequent reassessments and decisions regarding this patient's complex medical care, including obtaining history and physical exam, personally reviewing and interpreting labs and diagnostic tests, deciding and documenting treatment plans, and discussing the care and plan with other specialists involved in the patient's care. Critical care time was exclusive of separately billable procedures, treating other patients and teaching time. Critical care was necessary to treat or prevent imminent or life-threatening deterioration of the following conditions: RUE hematoma, hypotension * Plan of Care - Raghavendra Vaz - 06/06/2024 5:48 PM CDT Problem: Discharge Planning Goal: Understanding [...] from injury from falls Outcome: Progressing Problem: Medication Goal: Satisfaction with pain management medication regimen will improve Outcome: Progressing Goals: Clinical Goals for the Shift: vitals, I/O's, comfort, safety, accuchecks, abx, and pain mangement Principal Mechanical Engineer Patient Centered Goal for Treatment: Better health, [place] home Summary: Patient has seen with bruising on her right arm, it was at the insertion site of unsuccessful PICC line attempt yesterday. It was a small bruising in the morning but turned big this afternoon (see image at wound assessment). It was tender and patient does complain of minimal pain. Hospitalist made aware. * Plan of Care - Evelyn Ford RN - 06/06/2024 5:39 PM CDT 06/06/24 173 Discharge Planning Support System Family members Medication Assistance Yes Anticipated discharge level of care assisted facility (short term care) Does the patient need discharge transport arranged? Yes Type of Transportation Ambulance Has discharge transport been arranged? No Details of Transportation Pending Auth Discharge Transportation Communication Mode of transport has been discussed with the patient/family. All are agreeable to the plan and understand their responsibilities to ensure the safe transfer. No further CM/SW intervention is anticipated at this time. Post Acute Care Plan Home Care Services N/A OP Services N/A DME N/A Post Acute Care Facility Yes Referral Status Started Auth has been started pending. CM will continue to follow and assist with discharge planning as needed. Evelyn Ford Instructor Substitute Cosmetology [phone] * Plan of Care - Ivette Harrington MSW - 06/06/2024 12:36 PM CDT SW attempted to meet with pt, however pt was having an EKG completed. RISHI Stevenson Slitter Creaser Slotter Operator Case Management * Plan of Care - Carmencita Parnell RN - 06/06/2024 9:30 AM CDT [facility] is unable to accept [facility] due to IV frequency[facility]. Spoke with patients sistersAnibal [phone]. Insurance authorization submitted. BABAK Bowman-RN, * Medical Student - Franky Griffin - 06/06/2024 9:00 AM CDT HOSPITALIST PROGRESS NOTE PCP: Oswaldo Serrano [phone] Admit Date: 05/29/2024 5:34 PM LOS: 8 CHIEF COMPLAINT/ BRIEF HOSPITAL COURSE Lei Rodriguez is a 63 year old female with PMHx of Afib, CHF, T2DM, GERD, HTN, intellectual disability, JOSE, AICD, hypothyroidism who presented to on 05/29 with abdominal pain. Limited historian due to intellectual disability. She initially presented to [facility] on 05/21 with n/v/dand abdominal pain. She was found to have endocarditis with positive blood cultures growing staph au reus. She was started on vanc, zosyn, and IVF initially, now she is on ancef. She was also complaining of right neck pain, but was found to have no acute pathology on CT head and CT C-spine. On 05/30,dislodged catheter vs wire seen in right pulm artery on CT chest and echo was showing possible TV vegetation. CHANCE performed showing no TV vegetation, but presence of catheter vs wire in right pulm artery and left atrial appendage clot. Risks/benefits discussed with IR and CTS with no plan for surgical intervention. She is being followed by ID for antibiotic management. No blood cultures to date. Initially, end date for ancef was 06/08, but switched to 06/22 to complete 4 weeks due to AICD in place. PICC line was placed on 06/05 but had RUE swelling. CXR on 06/06 showing successful placement. INTERVAL HISTORY Patient reports RUE pain due to PICC line. She still reports neck pain, but explained negative CT and most likely musculoskeletal in nature. She reports mild SOB. Sister at bedside. Has good appetiteand had BM yesterday. REVIEW OF SYSTEMS Review of Systems Respiratory: Positive for shortness of breath. Cardiovascular: Negative for chest pain. Gastrointestinal: Negative for abdominal pain, blood in stool, diarrhea and nausea. Musculoskeletal: Positive for neck pain. Neurological: Negative for headaches. EXAM Vitals: 06/06/24 0400 BP: 101/62 Pulse: 85 Resp: 18 Temp: 36.9 ??C (98.5 ??F) SpO2: 93% Physical Exam Constitutional: Appearance: Normal appearance. She is obese. HENT: Head: Normocephalic and atraumatic. Nose: Nose normal. Eyes: Extraocular Movements: Extraocular movements intact. Pupils: Pupils are equal, round, and reactive to light. Cardiovascular: Rate and Rhythm: Normal rate and regular rhythm. Heart sounds: No murmur heard. Pulmonary: Effort: Pulmonary effort is normal. Breath sounds: Normal breath sounds. Abdominal: General: Bowel sounds are normal. There is no distension. Palpations: Abdomen is soft. Tenderness: There is no abdominal tenderness. Musculoskeletal: Cervical back: Normal range of motion. Skin: General: Skin is warm and dry. Neurological: General: No focal deficit present. Mental Status: She is alert. Scheduled Meds: carvediloL, 6.25 mg, oral, BID with meals (bkfst, dinner) ceFAZolin, 2,000 mg, intravenous, Q8H GALINA dilTIAZem, 30 mg, oral, TID dofetilide, 500 mcg, oral, BID escitalopram, 10 mg, oral, Daily ferrous sulfate, 65 mg of elemental iron, oral, Daily with breakfast furosemide, 40 mg, intravenous, BID DIURETIC insulin glargine, 18 Units, subcutaneous, QAM insulin lispro, 0-4 Units, subcutaneous, Nightly insulin lispro, 0-5 Units, subcutaneous, TID with meals insulin lispro, 10 Units, subcutaneous, TID with meals levothyroxine, 75 mcg, oral, Daily - 0600 nortriptyline, 10 mg, oral, Nightly pantoprazole DR, 40 mg, oral, Daily rivaroxaban, 20 mg, oral, Daily with dinner sacubitriL-valsartan, 1 tablet, oral, BID sodium chloride 0.9%, 5-10 mL, intra-catheter, Q12H [facility] Continuous Infusions: PRN Meds:. ??? dextrose, 15 g OR dextrose, 250 mL ??? docusate sodium, 100 mg ??? glucagon, 1 mg ??? HYDROcodone-acetaminophen, 1 tablet, 1 tablet at 06/06/24 0601 ??? ondansetron, 4 mg ??? polyethylene glycol, 17 g, 17 g at 06/04/24 1043 ??? sodium chloride 0.9%, 5-20 mL Diet: Dietary Orders (From admission, onward) Start Ordered 06/05/24 1532 Adult Diet Restricted; Low Fat, Low Chol, Low Na; Consistent Carb 2000 kilo Diet effective now Question Answer Comment (CH) Diet type Restricted Fat / Sodium Restriction: Low Fat, Low Chol, Low Na Diabetic: Consistent Carb 2000 kilo 06/05/24 1540 05/30/24 2100 Bedtime snack At bedtime Comments: If bedtime BG is less than 100mg/dl, give patient a 15 gram carbohydrate snack. 05/29/24 2201 ASSESSMENT AND PLAN All Diagnosis Present on Admission Unless Otherwise Stated: Principal Problem: Endocarditis Active Problems: SOB (shortness of breath) Acute on chronic systolic congestive heart failure (CMS/HCC) ([facility]) Neck pain Hyponatremia Chronic a-fib (CMS/HCC) ([facility]) Type 2 diabetes mellitus, with long-term current use of insulin ([facility]) Hypothyroid JOSE (obstructive sleep apnea) Diabetes mellitus with hyperglycemia (CMS/[facility]) ([facility]) Endocarditis -Continue ancef until 06/22 per ID -Echo showing catheter/wire in right pulm artery with left atrial appendage clot, no TV vegetation -ID and cardiology following Dislodged catheter vs wire -Possible catheter/wire in right pulm artery, no surgical intervention planned per IR and CTS RUE Hematoma -Obtained during PICC line placement -US doppler RUE ordered showing no acute DVT Acute on chronic systolic CHF -Echo EF 30% -Continue IV lasix, entresto, coreg Chronic Afib -Continue coreg, diltizaem, xarelto, tikosyn -CHANCE showing left atrial appendage clot Neck pain -CT head/C spine no acute pathology T2DM -SSI Hypothyroidism -Continue synthroid DVT ppx: Xarelto Medical Decision Making Complexity: High Consulting physicians: Treatment Team: Consulting Physician: Pastora Flores MD; Consulting Physician: Manuel Ludwig MD Disposition: Code status: Full Code Voice recognition software MModal Fluency Direct was used dictate and transcribe this document. Director E Learning variances may occur. Despite proofreading, typographical errors may occur. Franky Griffin OMS-IV Cosigned by Coleen Samuels MD at 06/06/2024 2:55 PM CDT * Plan of Care - Hailee Echeverria RN - 06/06/2024 3:02 AM CDT Problem: Skin Integrity Impairment Risk Goal: Risk for impaired skin integrity will decrease Outcome: Progressing Problem: Fall Risk Goal: Will remain free from falls Outcome: Progressing Problem: Coping Goal: Ability to cope will improve Outcome: Progressing Goals: Clinical Goals for the Shift: vitals, I/O's, comfort, safety, accuchecks, abx, and pain mangement Principal Mechanical Engineer Patient Centered Goal for Treatment: Better health, [place] home Summary: * Plan of Care - Raghavendra Vaz - 06/05/2024 3:05 PM CDT Problem: Discharge Planning Goal: Understanding [...] control plan will improve Outcome: Progressing Problem: Health Behavior Goal: Identification of resources available to assist in meeting health care needs will improve Outcome: Progressing Goals: Clinical Goals for the Shift: vitals, I/O's, comfort, safety, accuchecks, abx, and pain mangement Principal Mechanical Engineer Patient Centered Goal for Treatment: Better health, [place] home Summary:Patient was comfortable upon rounds, no complains of pain, needs assistance ambulating and going to the bathroom, she was scheduled with vascular for PICC line insertion but with unsuccessfulattempts, patient was instead sent to IR for PICC line insertion. * Plan of Care - Carmencita Parnell RN - 06/05/2024 3:04 PM CDT Called to follow up with patients Dilia womack [phone]. Dilia would like referrals sent to [facility]. Referrals sent via [employer]. BABAK Bowman-RN, * Perioperative Nursing Note - Pauly Wilburn RN - 06/05/2024 2:02 PM CDT Patient arrived to IR from the inpatient floor for a PICC line placement. Alert and oriented, answering orientation questions appropriately. NAD * Plan of Care - Carmencita Parnell RN - 06/05/2024 12:08 PM CDT Spoke with patient Dilia womack [phone], regarding discharge planning. Patient now needs IV abx until 06/22. Discussed home with home infusion vs SNF with . Choice list emailed to [email or web address]. Dilia will review the choice list and provide choices for SNF. MIKEY BowmanRN, * Plan of Care - Ivette Harrington MSW - 06/05/2024 9:18 AM CDT SW consult received for SNF placement. SW informed pt's CM who is working on pt's d/c plan. SW following for SDOH needs. RISHI Stevenson Slitter Creaser Slotter Operator Case Management * Plan of Care - Raghavendra Vaz - 06/04/2024 2:29 PM CDT Problem: Discharge Planning Goal: Understanding [...] decrease the patient's pain levels Outcome: Progressing Goals: Clinical Goals for the Shift: vitals, I/O's, comfort, safety, accuchecks, abx, and pain mangement Principal Mechanical Engineer Patient Centered Goal for Treatment: Better health, [place] home Summary: Patient has been up and walking with walker, requested for a stool softener and had 1 large bowel movent, skin is intact, vital signs are stable, no complains of pain, seen by PT/OT today and well tolerated. * Plan of Care - Ivette Harrington MSW - 06/04/2024 12:56 PM CDT Social Work Assessment Clinical Dx: Diabetes mellitus with hyperglycemia (CMS/HCC) (HCC) Past Medical History: Date of last inpatient admission: Previous admit date: N/A Number of inpatient admissions in past year: 1 Patient Information: Information Obtained From: Other (Specify) Name: Dilia Moise Sister [phone] Marital Status: Does Pt have Legal Guardian, Surrogate Decision Maker or Healthcare Agent? : No Payor Source: Medicare, Medicaid Race: White/ Ethnicity: Non- Gender Identity: Female (06/04/241246) Current Situation: Current Situation Living Arrangements: Alone Type of Residence: Private residence Current Transportation: Family/friends (06/04/241246) Support Systems and Spirituality: Support Systems and Spirituality Support System: Other family members Other Family Member Name/Contact Information: Peg Rice (Sister) [phone] Participation from Patient's Support System: Assist patient in her home, assist with finances Are there any Rastafari Practices that are important to maintain while admitted?: No Do you have Cultural Factors that are important to you?: No (06/04/241246) Strengths, Assets, Liabilities and Stressors: Strengths, Assets, Liabilities, and Stressors Strengths (Must Choose Two): Interpersonal relationships and supports,i.e., family, friends, peers,Access to housing/residential stability Patient Assets: Home, Supportive family, Insured, MD Does Pt have access to Employee Assistance Program: No Patient Barriers : Cognitive impairment, Dependent on others for completion of ADL's, Financial difficulties, Poor physical health Current Stressors: Chronic illness (06/04/241246) SDOH Transportation Needs: No Transportation Needs (06/01/2024) PRAPARE - Transportation Lack of Transportation (Medical): No Lack of Transportation (Non-Medical): No Financial Resource Strain: High Risk (06/01/2024) Overall Financial Resource Strain (CARDIA) Difficulty of Paying Living Expenses: Hard Housing Stability: Low Risk (06/01/2024) Housing Stability Vital Sign Unable to Pay for Housing in the Last Year: No Number of Times Moved in the Last Year: 0 Homeless in the Last Year: No Social Connections: Socially Isolated (06/01/2024) Social Connection and Isolation Panel [NHANES] Frequency of Communication with Friends and Family: More than three times a week Frequency of Social Gatherings with Friends and Family: More than three times a week Attends Rastafari Services: Never Active Member of Clubs or Organizations: No Attends Club or Organization Meetings: Never Marital Status: Food Insecurity: No Food Insecurity (06/01/2024) Hunger Vital Sign Worried About Running Out of Food in the Last Year: Never true Ran Out of Food in the Last Year: Never true Tobacco Use: Low Risk (05/31/2024) Patient History Smoking Tobacco Use: Never Smokeless Tobacco Use: Never Passive Exposure: Not on file Alcohol Use: Not At Risk (06/01/2024) AUDIT-C Frequency of Alcohol Consumption: Never Average Number of Drinks: Patient does not drink Frequency of Binge Drinking: Never Current/Former Smokers - Passive Exposure Questions Responses Current/Former Smoker - passive exposure (e.g., household member smoking)? No E-Cigarette/Vaping Questions Responses E-cigarette/Vaping Use Never User Vaping counseling given No Passive Exposure No E-Cigarette/Vaping Substances Questions Responses Nicotine No CBD No Unknown substances No E-Cigarette/Vaping Devices Questions Responses Disposable No Refillable Tank No Impressions and Recommendations: SW met with pt at bedside. Pt called her sister, Dilia to help answer questions. Pt's sister reports that pt lives alone in their mom's old house, which she is the landlord. Pt's sister reports the only bill pt is struggling with is her water bill, however the bill is in Dilia's name. Dilia is working on getting a landlord form filled out so that pt can apply for assistance. MIRIAM talked with pt's sister about d/c plan and she is open to home health if it is recommended. Pt's sister also reports that between herself, her son, and another sister, they are able to care for pt at her own home. [facility] MIRIAM will continue to follow for any needed suppo rt. RISHI Stevenson Slitter Creaser Slotter Operator Case Management * Plan of Care - Carmencita Parnell RN - 06/04/2024 12:34 PM CDT Called and discuss discharge plans with patients sisterDilia [phone]. Dilia states she is not comfortable with administering IV abx at home. She states that she spoke with the MD and was informed that the abx are until 06/08, and then patient will discharge home. PICC line has not been placed. Will continue to follow and assist with discharge planning. BABAK Bowman-RN, * Plan of Veena Dominguez RN - 06/03/2024 3:23 PM CDT Goals: Clinical Goals for the Shift: vitals, I/O's, comfort, safety, accuchecks, abx, and pain mangement Usp Patient Centered Goal for Treatment: Better health, [place] home Summary: Problem: Discharge Planning Goal: Understanding [...] to cope will improve Outcome: Progressing Problem: Fall Risk Goal: Will remain free from falls Outcome: Progressing * Plan of Veena Dominguez RN - 06/02/2024 2:55 PM CDT Goals: Clinical Goals for the Shift: vitals, I/O's, comfort, safety, accuchecks, abx, and pain mangement Principal Mechanical Engineer Patient Centered Goal for Treatment: Better health, [place] home Summary: Problem: Skin Integrity Impairment Risk Goal: Mobility will improve Outcome: Progressing Goal: Nutritional status will improve Outcome: Progressing Goal: Risk for impaired skin integrity will decrease Outcome: Progressing Problem: Coping Goal: Ability to cope will improve Outcome: Progressing Problem: Fall Risk Goal: Will remain free from falls Outcome: Progressing * Plan of Nancy Carbajal RN - 06/02/2024 9:32 AM CDT Saturday CM reached out Faith at [facility] LVM. Per pt RN pt has not had PICC inserted. Order are in and plan to get PICC today, RN will notify when procedure completed CM placed call to [facility] [phone] Spoke with Imra, she states she spoke with pt sister Dilia and she states she is not comfortable doing antibiotics at home. Irma states they cannot do a video teach. If sister declines she suggest possibly SNF for pt. Nancy Reyes MOLD CLOSER HELPER Instructor Substitute Cosmetology [phone] * Plan of Care - Carmencita Cano RN - 06/01/2024 8:15 PM CDT Problem: Discharge Planning Goal: Understanding discharge needs will improve Outcome: Ongoing Problem: Skin Integrity Impairment Risk Goal: Mobility will improve Outcome: Ongoing Goal: Understanding of ways to prevent future skin breakdown will improve Outcome: Ongoing Goal: Nutritional status will improve Outcome: Ongoing Goal: Risk for impaired skin integrity will decrease Outcome: Ongoing Problem: Lack of Knowledge Goal: [...] care needs will improve Outcome: Ongoing Problem: Cardiovascular Goal: Absence of cardiac dysrhythmias or at baseline Outcome: Ongoing * Plan of Care - Carmencita Parnell RN - 06/01/2024 3:15 PM CDT IMM given and reviewed with patient. Verbalized understanding. Copy left at the bedside and signed copy placed in the patients chart. Referral sent to [facility] Home Infusion, however, they are out of network. Referral sent to [facility].Patient still needs a PICC line and teaching to be completed with her sister, Dilia. BABAK Bowman-RN, * Plan of Care - Pallavi Edmonds RN - 06/01/2024 2:30 PM CDT This patient has [place] [employer] insurance which is OUT OF NETWORK for [facility]. [facility] & gave her patient info. She will run benefits & reach out to Carmencita Parnell CM directly. Pallavi Edmonds RN [employer] Mixer [address] [place] [address] [email or web address] * Initial Assessments - Carmencita Parnell RN - 06/01/2024 1:50 PM CDT CM Initial Assessment Interview Note Information Obtained From: Other (Specify) Name: Dilia Moise, daughter, (06/01/24 1349) Admission Source: ED Impression: CM met with patient at bedside to discuss plan of care, anticipated discharge date, andgoals for discharge Demographics verified via face sheet. Patient is getting ready to leave the floor for testing and said that this RN could call her sister. Called patients sister, Dilia Moise [phone]. Patient lives at home alone. She is independent with her ADLs and uses a 3 wheeled walker, shower chair, CPAP (unknown provider), and a life alert at home. Dilia checks on her and does thehouse hold chores. She receives SSI and is able to afford her medications at [facility] in [place], [place]. Dilia provides transportation. SDKS completed- Dilia states patient needs assistance with her water bill, but has not rec'd a disconnection notice. SW consulted and made aware. Goal is for her to return home. Discussed with Dilia that patient will likely need IV abx until 06/08. Dilia is willing to be taught how to manage IV abx and assist patient. Plan Includes: ID consulted Primary Source of Transportation: Does the patient need discharge transport arranged?: No (06/01/241348) Health Insurance Coverage: [place] Prescription Coverage: [place] Pharmacy: [id number] - [place], [place] - [address] [facility] [id number] Primary Care Provider: Oswaldo Serrano MD Prior to Admission: Functional Status: Independent with ADLs Primary Caregiver: Self Support System: Family members Home Care Services: No Outpatient Services: No Durable Medical Equipment: CPAP/Bi-PAP, Shower chair, Walker (wheeled) (3- wheeled walker) Living Arrangements: Alone Type of Residence: Private residence Steps in home?: Yes, Outside of home, Yes, Inside home Number of steps inside: 1 steps Number of steps outside: 1 steps Medication management: Independent (06/01/241348) SDOH: Transportation: In the past 12 months, has lack of transportation kept you from medical appointments or from getting medications?: No In the past 12 months, has lack of transportation kept you from meetings, work, or from getting things needed for daily living?: No (06/01/241349) Financial Resource: How hard is it for you to pay for the very basics like food, housing, medical care, and heating?: Hard (06/01/241349) Housing: In the last 12 months, was there a time when you were not able to pay the mortgage or rent on time?: No In the past 12 months, how many times have you moved where you were living?: 0 At any time in the past 12 months, were you homeless or living in a penitentiary (including now)?: No (06/01/241349) Utilities: No, (06/01/241349) Social Connections: In a typical week, how many times do you talk on the phone with family, friends, or neighbors?: More than three times a week How often do you get together with friends or relatives?: More than three times a week How often do you attend muslim or sikhism services?: Never Do you belong to any clubs or organizations such as muslim groups, unions, fraternal or athletic groups, or school groups?: No How often do you attend meetings of the clubs or organizations you belong to?: Never Are you , , , , never , or living with a partner?: (06/01/241349) Food Insecurity: Within the past 12 months, you worried that your food would run out before you got the money to buymore.: Never true Within the past 12 months, the food you bought just didn't last and you didn't have money to get more.: Never true (06/01/241349) Alcohol Use: Q1: How often do you have a drink containing alcohol?: Never Q2: How many drinks containing alcohol do you have on a typical day when you are drinking?: Patientdoes not drink Q3: How often do you have six or more drinks on one occasion?: Never (06/01/241349) Potential discharge needs include: Home infusion OP Services:n/a Dialysis: n/a Behavioral Health Services: Behavioral Health Services: No (06/01/241348) Anticipated Level of Care: Anticipated discharge level of care: Private residence Pt/Family agrees with Anticipated Level of Care: Yes (06/01/241348) Patient expects to be Discharged to: Private residence, (06/01/241348) Additional Information: No additional information Patient's Identified Problem/Goal Problem: Ensure acute medical [...] Collaboration with Patient, Provider, Direct Care Nurse, Slitter Creaser Slotter Operator, and other members of theHealth Care Team to assure needed interventions completed. 2. Return patient to optimal level of self-care post discharge. 3. Instructor Substitute Cosmetology will follow for Discharge Planning - interventions as needed 4. Anticipated level of care at discharge 5. Planned Discharge Disposition [facility] [phone] * Plan of Care - Carla Gamez RN - 06/01/2024 12:49 AM CDT Problem: Discharge Planning Goal: Understanding discharge needs will improve Outcome: Ongoing Problem: Skin Integrity Impairment Risk Goal: Mobility will improve Outcome: Ongoing Goal: Understanding of ways to prevent future skin breakdown will improve Outcome: Ongoing Goal: Nutritional status will improve Outcome: Ongoing Goal: Risk for impaired skin integrity will decrease Outcome: Ongoing Problem: Lack of Knowledge Goal: [...] health care needs will improve Outcome: Ongoing Goals: Clinical Goals for the Shift: vitals, I/O's, comfort, safety, accuchecks, abx, and pain mangement Usp Patient Centered Goal for Treatment: Better health, [facility] * Provider Query - Elly Julian MD - 05/31/2024 11:35 PM CDT Specify the significance of the abnormal BMI (body mass index) and document in the medical record and on the form below Elevated BMI ___Overweight ___Obesity _x__Morbid (Severe) (Class 3) Obesity ___Other, specify below Additional Provider Response: Clinical Indicators/Treatments: Height: 5' 5 Weight: 121.3 kg BMI: 47.22 kg/m2 Hospitalist PN 05/30 Physical Exam: Gen:Well built female Assessment/Plan Endocarditis Acute on chronic Systolic CHF Chronic afib JOSE References: From the ICD-10-CM Official Guidelines for [...] part of the patient???s medical record. * Plan of Care - Darron Caldera - 05/31/2024 4:52 PM CDT Goals: Clinical Goals for the Shift: stable vitals,safety and comfort,pain management Usp Patient Centered Goal for Treatment: Better health, [place] home Summary: Problem: Discharge Planning Goal: Understanding discharge needs will improve Outcome: Progressing Problem: Skin Integrity Impairment Risk Goal: Mobility will improve Outcome: Progressing Goal: Understanding of ways to prevent future skin breakdown will improve Outcome: Progressing Goal: Nutritional status will improve Outcome: Progressing Goal: Risk for impaired skin integrity will decrease Outcome: Progressing Problem: Lack of Knowledge Goal: Ability to develop a pain control plan will improve Outcome: Progressing Problem: Medication Goal: Satisfaction with pain management medication regimen will improve Outcome: Progressing Problem: Coping Goal: Ability to cope will improve Outcome: Progressing * Post-Procedure Note - Ty Mcfarland MD - 05/31/2024 8:47 AM CDT Short post procedure note Patient underwent Mac provided by anesthesia team Dual-chamber Biotronik defibrillator interrogation and programming. Atrial fibrillation was documented. Device was reprogrammed to DDI 70with increased right atrial output. transesophageal ECHO Echo with 2D spectral Doppler color-flow Doppler bubble study and 3 dimensional rendering was performed Pertinent findings Left atrial appendage clot was seen. Wire versus catheter is seen in the right pulmonary artery that was seen on CT. Severe left atrial enlargement. Moderate right atrial enlargement Moderate mitral regurgitation with centrally directed jet In summary Synchronized cardioversion was canceled because of the presence of left atrial appendage clot. Will continue current antiarrhythmic medication regimen will continue anticoagulation that may needto be changed to different anticoagulant. Will defer timing of the removal of the catheter versus wire from right pulmonary artery to Interventional Radiology versus cardiothoracic team * Op Note - Ty Mcfarland MD - 05/31/2024 8:00 AM CDT Transesophageal echo Note/ NO CV was done Surgical Team: Surgeons and Role: * Ty Mcfarland MD - Primary Anesthesiologist: Sourav Mccall MD Anesthesiologist Lumber Buyer: Amrik Navas AA Endoscopy Nurse: Tawana Hernandez RN DATE OF SURGERY : 05/31/2024 Preoperative Diagnosis: Pre-op Diagnosis * Acute bacterial endocarditis [I33.0] Atrial fibrillation Cardiomyopathy, dilated Congestive heart failure [place] [employer] class 3 symptoms. Presence of BIOTRONIK dual-chamber defibrillator Postoperative Diagnosis: NO OBVIOUS VALVULAR VEGETATIONS Atrial fibrillation Cardiomyopathy, dilated Congestive heart failure [place] [employer] class 3 symptoms. Presence of BIOTRONIK dual-chamber defibrillator Left atrial appendage clot was seen. Wire versus catheter is seen in the right pulmonary artery that was seen on CHANCE today and CT on 05/30/2024 . Procedure(s): Procedure(s) (LRB): CARDIOVERSION (Left) - was not morfin due to MAULIK clot TRANSESOPHAGEAL ECHOCARDIOGRAM (N/A) Details of procedure After adequate anesthesia was administered by anesthesia team the patient underwent transesophagealECHO. Transesophageal echo was placed into the esophagus then sequential to stomach. The 2D spectral Doppler color-flow Doppler bubble study and three-dimensional rendering was done. After that synchronized cardioversion was NOT performed Atrial Septum: Normal atrial septum. Left Ventricle: Mild enlargement of left ventricle cavity. Normal left ventricular wall thickness. Paradoxical septal motion consistent with IVCD or bundle branch block. Ejection fraction is measured at 30 %. Left Atrium: The left atrium is enlarged. Left Atrium APPENDAGE Left atrial appendage clot was seen. Right Ventricle: Normal right ventricular systolic function. Linear artifact in right ventricle is consistent with RV defibrillator lead. Brightness on RV lead is due to RV coil on defibrillator lead nor a vegetation Right Atrium: There is mild enlargement of right atrium. Linear artifact in right atrium is consistent with RA pacing and RV defibrillator leads Atrial Septum: Normal atrial septum. By color flow doppler and bubble study Aortic Valve: Aortic cusps appear mildly sclerotic. No evidence of hemodynamically significant aortic stenosis by Doppler. No aortic regurgitation. Mitral Valve: Normal structure of the mitral valve. Mild to moderate mitral valve regurgitation. The regurgitation jet is eccentrically directed which may underestimate the severity of mitral regurgitation. Pulmonic Valve: Normal structure of the pulmonic valve. Mild pulmonic regurgitation. Tricuspid Valve: Tricuspid valve mildly thickened by no obvious vegetation was seen. Linear artifact in right ventricle is consistent with RV defibrillator lead. Brightness on RV lead is due to RV coil on defibrillator lead nor a vegetation . Mild to moderate tricuspid regurgitation. Pericardium: Trivial pericardial effusion. Aorta: Mild aortic root calcification. Pulmonary Artery: Mild enlargement of the pulmonary artery. Transesophageal echo summary Findings: VO VEGETATIONS ON LEADS or VALVES to suggest endocarditis Decreased left ventricular systolic function ejection fraction about 30%. Left atrial appendage clot was seen. Wire versus catheter is seen in the right pulmonary artery that was seen on CT. Severe left atrial enlargement. Moderate right atrial enlargement Moderate mitral regurgitation with centrally directed jet Interatrial septum intact by color-flow Doppler bubble study Synchronized cardioversion findings Not done Procedure summary Successful transesophageal echo synchronized cardioversion not done due to MAULIK clot Estimated Blood Loss: No blood loss documented. Intraoperative Fluids: See anesthesia note Specimens: No specimen collected in procedure Implants: Nothing was implanted during the procedure Blood/Blood Products Transfused: none Complications: None Condition on Discharge from the operating room was stable Ty Mcfarland MD Date: 05/31/2024 Time: 8:50 AM No Resident involved on case Short post procedure note Patient underwent Mac provided by anesthesia team Dual-chamber Biotronik defibrillator interrogation and programming. Atrial fibrillation was documented. Device was reprogrammed to DDI 70with increased right atrial output. transesophageal ECHO Echo with 2D spectral Doppler color-flow Doppler bubble study and 3 dimensional rendering was performed Pertinent findings Left atrial appendage clot was seen. Wire versus catheter is seen in the right pulmonary artery that was seen on CT. Severe left atrial enlargement. Moderate right atrial enlargement Moderate mitral regurgitation with centrally directed jet In summary Synchronized cardioversion was canceled because of the presence of left atrial appendage clot. Will continue current antiarrhythmic medication regimen will continue anticoagulation that may needto be changed to different anticoagulant. Will defer timing of the removal of the catheter versus wire from right pulmonary artery to Interventional Radiology versus cardiothoracic team * Brief Op Note - Ty Mcfarland MD - 05/31/2024 8:00 AM CDT Transesophageal echo Note/ NO CV was done Surgical Team: Surgeons and Role: * Ty Mcfarland MD - Primary Anesthesiologist: Sourav Mccall MD Anesthesiologist Lumber Buyer: Amrik Navas AA Endoscopy Nurse: Tawana Hernandez RN DATE OF SURGERY : 05/31/2024 Preoperative Diagnosis: Pre-op Diagnosis * Acute bacterial endocarditis [I33.0] Atrial fibrillation Cardiomyopathy, dilated Congestive heart failure [place] [employer] class 3 symptoms. Presence of BIOTRONIK dual-chamber defibrillator Postoperative Diagnosis: NO OBVIOUS VALVULAR VEGETATIONS Atrial fibrillation Cardiomyopathy, dilated Congestive heart failure [place] [employer] class 3 symptoms. Presence of BIOTRONIK dual-chamber defibrillator Left atrial appendage clot was seen. Wire versus catheter is seen in the right pulmonary artery that was seen on CHANCE today and CT on 05/30/2024 . Procedure(s): Procedure(s) (LRB): CARDIOVERSION (Left) - was not morfin due to MAULIK clot TRANSESOPHAGEAL ECHOCARDIOGRAM (N/A) Details of procedure After adequate anesthesia was administered by anesthesia team the patient underwent transesophagealECHO. Transesophageal echo was placed into the esophagus then sequential to stomach. The 2D spectral Doppler color-flow Doppler bubble study and three-dimensional rendering was done. After that synchronized cardioversion was NOT performed Atrial Septum: Normal atrial septum. Left Ventricle: Mild enlargement of left ventricle cavity. Normal left ventricular wall thickness. Paradoxical septal motion consistent with IVCD or bundle branch block. Ejection fraction is measured at 30 %. Left Atrium: The left atrium is enlarged. Left Atrium APPENDAGE Left atrial appendage clot was seen. Right Ventricle: Normal right ventricular systolic function. Linear artifact in right ventricle is consistent with RV defibrillator lead. Brightness on RV lead is due to RV coil on defibrillator lead nor a vegetation Right Atrium: There is mild enlargement of right atrium. Linear artifact in right atrium is consistent with RA pacing and RV defibrillator leads Atrial Septum: Normal atrial septum. By color flow doppler and bubble study Aortic Valve: Aortic cusps appear mildly sclerotic. No evidence of hemodynamically significant aortic stenosis by Doppler. No aortic regurgitation. Mitral Valve: Normal structure of the mitral valve. Mild to moderate mitral valve regurgitation. The regurgitation jet is eccentrically directed which may underestimate the severity of mitral regurgitation. Pulmonic Valve: Normal structure of the pulmonic valve. Mild pulmonic regurgitation. Tricuspid Valve: Tricuspid valve mildly thickened by no obvious vegetation was seen. Linear artifact in right ventricle is consistent with RV defibrillator lead. Brightness on RV lead is due to RV coil on defibrillator lead nor a vegetation . Mild to moderate tricuspid regurgitation. Pericardium: Trivial pericardial effusion. Aorta: Mild aortic root calcification. Pulmonary Artery: Mild enlargement of the pulmonary artery. Transesophageal echo summary Findings: VO VEGETATIONS ON LEADS or VALVES to suggest endocarditis Decreased left ventricular systolic function ejection fraction about 30%. Left atrial appendage clot was seen. Wire versus catheter is seen in the right pulmonary artery that was seen on CT. Severe left atrial enlargement. Moderate right atrial enlargement Moderate mitral regurgitation with centrally directed jet Interatrial septum intact by color-flow Doppler bubble study Synchronized cardioversion findings Not done Procedure summary Successful transesophageal echo synchronized cardioversion not done due to MAULIK clot Estimated Blood Loss: No blood loss documented. Intraoperative Fluids: See anesthesia note Specimens: No specimen collected in procedure Implants: Nothing was implanted during the procedure Blood/Blood Products Transfused: none Complications: None Condition on Discharge from the operating room was stable Ty Mcfarland MD Date: 05/31/2024 Time: 8:50 AM No Resident involved on case Short post procedure note Patient underwent Mac provided by anesthesia team Dual-chamber Biotronik defibrillator interrogation and programming. Atrial fibrillation was documented. Device was reprogrammed to DDI 70with increased right atrial output. transesophageal ECHO Echo with 2D spectral Doppler color-flow Doppler bubble study and 3 dimensional rendering was performed Pertinent findings Left atrial appendage clot was seen. Wire versus catheter is seen in the right pulmonary artery that was seen on CT. Severe left atrial enlargement. Moderate right atrial enlargement Moderate mitral regurgitation with centrally directed jet In summary Synchronized cardioversion was canceled because of the presence of left atrial appendage clot. Will continue current antiarrhythmic medication regimen will continue anticoagulation that may needto be changed to different anticoagulant. 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 Spoke with Dr. Abernathy, he asked for CT Surgery to evaluate non-emergently in the morning and determine if safe to remove * Significant Event - Mike Hollis MD - 05/30/2024 3:27 AM CDT EKbpm afib with LAD. No recent prior for comparison. * Plan of Care - Kristy Pepper RN - 05/29/2024 7:53 PM CDT Goals: Summary: Problem: Discharge Planning Goal: Understanding discharge needs will improve Outcome: Progressing Flowsheets (Taken 05/29/20241952) Understanding of discharge needs will improve: Collaborate with case management interdisciplinary team Problem: Skin Integrity Impairment Risk Goal: Mobility will improve Outcome: Progressing Flowsheets (Taken 05/29/20241952) Mobility will improve: Assess circulation, sensation and/or motion of extremity Collaborate with physical therapy Encourage mobilization to extent of ability, assist with range of motion as needed documented in this encounter Plan of Treatment Pending Results Name Type Priority Associated Diagnoses Date /Time Transesophageal Echo ([facility]) W Doppler/CF Echocardiography Routine Acute bacterial endocarditis 05/31/2024 9:35 AM CDT Scheduled Orders Name Type Priority Associated Diagnoses Order Schedule Transesophageal Echo ([facility]) W Doppler/CF Echocardiography Routine Acute bacterial endocarditis Once for 1 Occurrences starting 05/31/2024 until 05/31/2024 Scheduled Referrals Name Type Priority Associated Diagnoses Orde r Schedule Ambulatory referral to Home Health Outpatient Referral Routine Acute bacterial endocarditis 1 Occurrences starting 06/01/2024 until 12/02/2024 Ambulatory referral to Nutrition Services Outpatient Referral Routine Diabetes mellitus with hyperglycemia (CMS/HCC) (HCC) Acute on chronic systolic congestive heart failure (CMS/HCC) (HCC) Expected: 06/19/2024 (Approximate), Expires: 06/05/2025 documented as of this encounter Procedures Procedure Name Priority Date/Time Associated Diagnosis Comments POCT GLUCOSE DEVICE Routine 06/08/2024 5 :02 PM CDT POCT GLUCOSE DEVICE Routine 06/08/2024 12:08 PM CDT POCT GLUCOSE DEVICE Routine 06/08/2024 6 :45 AM CDT EGFR Routine 06/08/2024 4:30 AM CDT DIFFERENTIAL AUTO Routine 06/08/2024 4:3 0 AM CDT CBC WITH AUTO DIFFERENTIAL Routine 06/08/2024 4:30 AM CDT PHOSPHORUS Routine 06/08/2024 4:30 AM CDT MAGNESIUM Routine 06/08/2024 4:30 AM CDT COMPREHENSIVE METABOLIC PANEL Routine 06/08/2024 4:30 AM CDT POCT GLUCOSE DEVICE Routine 06/07/2024 10:02 PM CDT POCT GLUCOSE DEVICE Routine 06/07/2024 4 :56 PM CDT POCT GLUCOSE DEVICE Routine 06/07/2024 11:56 AM CDT POCT GLUCOSE DEVICE Routine 06/07/2024 6 :13 AM CDT EGFR Routine 06/07/2024 4:00 AM CDT DIFFERENTIAL AUTO Routine 06/07/2024 4:0 0 AM CDT CBC WITH AUTO DIFFERENTIAL Routine 06/07/2024 4:00 AM CDT PHOSPHORUS Routine 06/07/2024 4:00 AM CDT MAGNESIUM Routine 06/07/2024 4:00 AM CDT COMPREHENSIVE METABOLIC PANEL Routine 06/07/2024 4:00 AM CDT CTA UPPER EXTREMITY RIGHT W WO CONTRAST ED Urgent/IP Urgent 06/06/2024 11:04 PM CDT POCT GLUCOSE DEVICE Routine 06/06/2024 9 :16 PM CDT POCT GLUCOSE DEVICE Routine 06/06/2024 6 :51 PM CDT POCT GLUCOSE DEVICE Routine 06/06/2024 4 :42 PM CDT ECG 12-LEAD Routine 06/06/2024 12:16 PM CDT POCT GLUCOSE DEVICE Routine 06/06/2024 11:53 AM CDT US VEIN DUPLEX UPPER EXTREMITY RIGHT LIMITED IP Routine 06/06/2024 8:33 AM CDT XR CHEST PA LATERAL 2 VIEWS IP Routine 06/06/2024 8:29 AM CDT POCT GLUCOSE DEVICE Routine 06/06/2024 7 :25 AM CDT EGFR Routine 06/06/2024 3:59 AM CDT DIFFERENTIAL AUTO Routine 06/06/2024 3:5 9 AM CDT CBC WITH AUTO DIFFERENTIAL Routine 06/06/2024 3:59 AM CDT PHOSPHORUS Routine 06/06/2024 3:59 AM CDT MAGNESIUM Routine 06/06/2024 3:59 AM CDT COMPREHENSIVE METABOLIC PANEL Routine 06/06/2024 3:59 AM CDT POCT GLUCOSE DEVICE Routine 06/05/2024 8 :31 PM CDT POCT GLUCOSE DEVICE Routine 06/05/2024 4 :47 PM CDT IR PICC LINE PLACEMENT > 5 YEARS IP Routine 06/05/2024 3:12 PM CDT XR CHEST 1 VIEW ED Urgent/IP Urgent 06/05/2024 1:17 PM CDT POCT GLUCOSE DEVICE Routine 06/05/2024 11:29 AM CDT PROTIME-INR STAT 06/05/2024 7:55 AM CDT POCT GLUCOSE DEVICE Routine 06/05/2024 6 :28 AM CDT POCT GLUCOSE DEVICE Routine 06/05/2024 2 :04 AM CDT EGFR Routine 06/05/2024 12:31 AM CDT DIFFERENTIAL AUTO Routine 06/05/2024 12:31 AM CDT CBC WITH AUTO DIFFERENTIAL Routine 06/05/2024 12:31 AM CDT PHOSPHORUS Routine 06/05/2024 12:31 AM CDT MAGNESIUM Routine 06/05/2024 12:31 AM CDT COMPREHENSIVE METABOLIC PANEL Routine 06/05/2024 12:31 AM CDT POCT GLUCOSE DEVICE Routine 06/04/2024 8 :31 PM CDT POCT GLUCOSE DEVICE Routine 06/04/2024 4 :31 PM CDT POCT GLUCOSE DEVICE Routine 06/04/2024 11:11 AM CDT POCT GLUCOSE DEVICE Routine 06/04/2024 6 :25 AM CDT EGFR Routine 06/04/2024 4:53 AM CDT DIFFERENTIAL AUTO Routine 06/04/2024 4:5 3 AM CDT CBC WITH AUTO DIFFERENTIAL Routine 06/04/2024 4:53 AM CDT PHOSPHORUS Routine 06/04/2024 4:53 AM CDT MAGNESIUM Routine 06/04/2024 4:53 AM CDT COMPREHENSIVE METABOLIC PANEL Routine 06/04/2024 4:53 AM CDT POCT GLUCOSE DEVICE Routine 06/03/2024 8 :08 PM CDT POCT GLUCOSE DEVICE Routine 06/03/2024 4 :26 PM CDT POCT GLUCOSE DEVICE Routine 06/03/2024 11:26 AM CDT POCT GLUCOSE DEVICE Routine 06/03/2024 6 :48 AM CDT EGFR Routine 06/03/2024 3:05 AM CDT DIFFERENTIAL AUTO Routine 06/03/2024 3:0 5 AM CDT CBC WITH AUTO DIFFERENTIAL Routine 06/03/2024 3:05 AM CDT PHOSPHORUS Routine 06/03/2024 3:05 AM CDT MAGNESIUM Routine 06/03/2024 3:05 AM CDT COMPREHENSIVE METABOLIC PANEL Routine 06/03/2024 3:05 AM CDT POCT GLUCOSE DEVICE Routine 06/02/2024 8 :54 PM CDT POCT GLUCOSE DEVICE Routine 06/02/2024 4 :13 PM CDT POCT GLUCOSE DEVICE Routine 06/02/2024 11:28 AM CDT ECG 12-LEAD Routine 06/02/2024 11:12 AM CDT POCT GLUCOSE DEVICE Routine 06/02/2024 6 :38 AM CDT EGFR Routine 06/02/2024 2:54 AM CDT DIFFERENTIAL AUTO Routine 06/02/2024 2:54 AM CDT CBC WITH AUTO DIFFERENTIAL Routine 06/02/2024 2:54 AM CDT PHOSPHORUS Routine 06/02/2024 2:54 AM CDT MAGNESIUM Routine 06/02/2024 2:54 AM CDT COMPREHENSIVE METABOLIC PANEL Routine 06/02/2024 2:54 AM CDT POCT GLUCOSE DEVICE Routine 06/02/2024 2 :40 AM CDT ECG 12-LEAD Routine 06/02/2024 12:29 AM CDT POCT GLUCOSE DEVICE Routine 06/01/2024 10:00 PM CDT POCT GLUCOSE DEVICE Routine 06/01/2024 4 :[address] ABDOMEN PELVIS W CONTRAST ED Urgent/IP Urgent 06/01/2024 1:44 PM CDT POCT GLUCOSE DEVICE Routine 06/01/2024 11:40 AM CDT ECG 12-LEAD Routine 06/01/2024 11:27 AM CDT POCT GLUCOSE DEVICE Routine 06/01/2024 6 :50 AM CDT EGFR Routine 06/01/2024 4:49 AM CDT DIFFERENTIAL AUTO Routine 06/01/2024 4:4 9 AM CDT CBC WITH AUTO DIFFERENTIAL Routine 06/01/2024 4:49 AM CDT PHOSPHORUS Routine 06/01/2024 4:49 AM CDT MAGNESIUM Routine 06/01/2024 4:49 AM CDT COMPREHENSIVE METABOLIC PANEL Routine 06/01/2024 4:49 AM CDT ECG 12-LEAD Routine 05/31/2024 11:02 PM CDT POCT GLUCOSE DEVICE Routine 05/31/2024 8 :36 PM CDT POCT GLUCOSE DEVICE Routine 05/31/2024 4 :47 PM CDT ECG 12-LEAD Routine 05/31/2024 12:42 PM CDT POCT GLUCOSE DEVICE Routine 05/31/2024 10:31 AM CDT CARDIOVERSION 05/31/2024 8:20 AM CDT Acute bacterial endocarditis TRANSESOPHAGEAL ECHOCARDIOGRAM 05/31/2024 8:20 AM CDT Acute bacterial endocarditis POCT GLUCOSE DEVICE Routine 05/31/2024 7 :52 AM CDT POCT GLUCOSE DEVICE Routine 05/31/2024 6 :21 AM CDT EGFR Routine 05/31/2024 3:05 AM CDT DIFFERENTIAL AUTO Routine 05/31/2024 3:0 5 AM CDT CBC WITH AUTO DIFFERENTIAL Routine 05/31/2024 3:05 AM CDT PHOSPHORUS Routine 05/31/2024 3:05 AM CDT MAGNESIUM Routine 05/31/2024 3:05 AM CDT COMPREHENSIVE METABOLIC PANEL Routine 05/31/2024 3:05 AM CDT POCT GLUCOSE DEVICE Routine 05/31/2024 1 :59 AM CDT ECG 12-LEAD Routine 05/30/2024 11:23 PM CDT POCT GLUCOSE DEVICE Routine 05/30/2024 8 :52 PM CDT POCT GLUCOSE DEVICE Routine 05/30/2024 5 :20 PM CDT POCT GLUCOSE DEVICE Routine 05/30/2024 12:03 PM CDT ECG 12-LEAD Routine 05/30/2024 11:[address] CHEST WO CONTRAST ED Urgent/IP Urgent 05/30/2024 11:22 AM CDT CBC WITHOUT DIFFERENTIAL Routine 05/30/2024 9:35 AM CDT ECG 12-LEAD Routine 05/30/2024 8:34 AM CDT TRANSTHORACIC ECHO (TTE) COMPLETE W DOPPLER/CF WO CONTRAST STAT 05/30/2024 8:25 AM CDT TROPONIN T HIGH-SENSITIVITY 6-HOUR Timed 05/30/2024 6:20 AM CDT TROPONIN T HIGH-SENSITIVITY 4-HR Timed 05/30/2024 4:28 AM CDT EGFR Routine 05/30/2024 4:28 AM CDT DIFFERENTIAL AUTO Routine 05/30/2024 4:2 8 AM CDT CBC WITH AUTO DIFFERENTIAL Routine 05/30/2024 4:28 AM CDT BLOOD CULTURE Routine 05/30/2024 4:28 AM CDT BLOOD CULTURE Routine 05/30/2024 4:28 AM CDT MAGNESIUM Routine 05/30/2024 4:28 AM CDT COMPREHENSIVE METABOLIC PANEL Routine 05/30/2024 4:[address] CHEST PE W CONTRAST ED Urgent/IP Urgent 05/30/2024 3:43 AM CDT POCT GLUCOSE DEVICE Routine 05/30/2024 12:[address] CERVICAL SPINE WO CONTRAST ED Urgent/IP Urgent 05/29/2024 11:[address] HEAD WO CONTRAST ED Urgent/IP Urgent 05/29/2024 11:18 PM CDT XR CHEST 1 VIEW ED Urgent/IP Urgent 05/29/2024 11:15 PM CDT TROPONIN T HIGH-SENSITIVITY SERIES (BASELINE, 2HR, 4HR, 6HR) STAT 05/29/2024 11:00 PM CDT PRO B-TYPE NATRIURETIC PEPTIDE Add-On 05/29/2024 11:00 PM CDT LACTATE Routine 05/29/2024 10:53 PM CDT EGFR Routine 05/29/2024 10:53 PM CDT DIFFERENTIAL AUTO Routine 05/29/2024 10:53 PM CDT CBC WITH AUTO DIFFERENTIAL Routine 05/29/2024 10:53 PM CDT APTT Routine 05/29/2024 10:53 PM CDT PROTIME-INR STAT 05/29/2024 10:53 PM CDT MAGNESIUM Routine 05/29/2024 10:53 PM CDT HEPATIC FUNCTION PANEL STAT 10:53 PM CDT BASIC METABOLIC PANEL Routine 05/29/2024 10:53 PM CDT ECG 12-LEAD STAT 05/29/2024 10:29 PM CDT POCT GLUCOSE DEVICE Routine 05/29/2024 8 :02 PM CDT documented in this encounter Results * POCT glucose (06/08/2024 5:02 PM CDT) [facility] Signature Glucose, POC 169 70 - 199 mg/dL Blood 06/08/2024 5:02 PM CDT 06/08/2024 5:02 PM CDT us Coleen Samuels MD LAB POCT ORDERABLES - DEV ICE Final Result OLAM[facility] CAR [id number] Department [place] [address] * (ABNORMAL) POCT glucose (06/08/2024 12:08 PM CDT) Pathologist [facility] Glucose, POC 267(H) 70 - 199 mg/dL Blood 06/08/2024 12:0 8 PM CDT 06/08/2024 12:08 PM CDT Coleen Samuels MD LAB POCT ORDERABLES - DEV ICE Final Result Performing Organization Address [place] [place] de Phone Number OLAMIDE [phone] [address] [facility] [place] [address] * POCT glucose (06/08/2024 6:45 AM CDT) Pathologist [facility] Glucose, POC 187 70 - 199 mg/dL Blood 06/08/2024 6:45 AM CDT 06/08/2024 6:45 AM CDT Coleen Samuels MD LAB POCT ORDERABLES - DEV ICE Final Result Performing Organization Address [facility] de Phone Number OLAMIDE [phone] [address] [facility] [place] [address] * eGFR (06/08/2024 4:30 AM CDT) [facility] eGFR >90 >=60 mL/min/1. 73 m2 Comment: [...] interpretive data was last reviewed 2021. Blood 06/08/2024 4:30 AM CDT 06/08/2024 5:17 AM CDT us Mike Hollis MD LAB BLOOD ORDERABLES F inal Result OLAMIDE [id number] [address] Department [place] [address] * Differential, auto (06/08/2024 4:30 AM CDT) Neutrophil abs 3.3 1.5 - 6.5 K/cumm Imm gran abs 0.1 0.0 - 0.1 K/cumm [facility] Lymphocyte abs 1.2 0.8 - 3.3 K/cumm [facility] Monocyte abs 0.7 0.2 - 0.8 K/cumm [facility] Eosinophil abs 0.2 0.0 - 0.5 K/cumm [facility] Basophil abs 0.1 0.0 - 0.1 K/cumm [facility] Neutrophil pct 59.9 % [facility] Comment: Interpretive Data Percent cell count reference ranges are not reported, since discordance with absolute values may lead to misinterpretation of CBC data. Current Interpretive Data was last revised on 2018. Imm gran pct 1.1 % [facility] Comment: Interpretive Data Percent cell count reference ranges are not reported, since discordance with absolute values may lead to misinterpretation of CBC data. Current Interpretive Data was last revised on 2018. Lymphocyte pct 21.6 % [facility] Comment: Interpretive Data Percent cell count reference ranges are not reported, since discordance with absolute values may lead to misinterpretation of CBC data. Current Interpretive Data was last revised on 2018. Monocyte pct 13.2 % [facility] Comment: Interpretive Data Percent cell count reference ranges are not reported, since discordance with absolute values may lead to misinterpretation of CBC data. Current Interpretive Data was last revised on 2018. Eosinophil pct 2.7 % [facility] Comment: Interpretive Data Percent cell count reference ranges are not reported, since discordance with absolute values may lead to misinterpretation of CBC data. Current Interpretive Data was last revised on 2018. Basophil pct 1.5 % [facility] Comment: Interpretive Data Percent cell count reference ranges are not reported, since discordance with absolute values may lead to misinterpretation of CBC data. Current Interpretive Data was last revised on 2018. Blood 06/08/2024 4:30 AM CDT 06/08/2024 5:17 AM CDT Mike Hollis MD LAB BLOOD ORDERABLES F inal Result Performing Organization Address [place] de Phone Number ZAKIYAIZZY [phone] [address] [place] [address] * Phosphorus (06/08/2024 4:30 AM CDT) Phosphorus, pl 3.4 2.3 - 4.5 mg/dL Blood 06/08/2024 4:30 AM CDT 06/08/2024 5:17 AM CDT Result [facility] Elly Julian MD LAB BLOOD ORDERABLE S Final Result Performing Organization Address [place] [place] Co de Phone Number [facility] [phone] [address] [employer] [place] [address] * Magnesium (06/08/2024 4:30 AM CDT) Magnesium 2.0 1.4 - 2.5 mg/dL Blood 06/08/2024 4:30 AM CDT 06/08/2024 5:17 AM CDT Mike Hollis MD LAB BLOOD ORDERABLES F inal Result Performing Organization Address [place] [place] Co de Phone Number OLAMIDE [phone] [address] Department [place] [address] * (ABNORMAL) Comprehensive metabolic panel (06/08/2024 4:30 AM CDT) Sodium 136 135 - 145 mmol/L Potassium, pl 3.7 3.3 - 4.9 mmol/L [facility] Chloride 97 97 - 110 mmol/L [facility] CO2 30 22 - 32 mmol/L [facility] Anion gap 9 2 - 15 mmol/L [facility] BUN 17 6 - 25 mg/dL [facility] Creatinine 0.70 0.60 - 1.10 mg/dL [facility] Glucose 175 70 - 199 mg/dL [facility] Comment: [...] 9.0 8.5 - 10.3 mg/dL [facility] Bilirubin, total 0.5 0.1 - 1.2 mg/dL [facility] Protein, pl 7.6 6.5 - 8.5 g/dL [facility] Albumin 3.2(L) 3.5 - 5.0 g/dL [facility] Alk phos 217(H) 40 - 130 Units/L [facility] ALT 5(L) 7 - 45 Units/L [facility] AST 21 10 - 45 Units/L [facility] Blood 06/08/2024 4:30 AM CDT 06/08/2024 5:17 AM CDT us Mike Hollis MD LAB BLOOD ORDERABLES F inal Result Performing Organization Address [place] [place] Co de Phone Number OLAMIDE CAR [phone] [address] [facility] [place] [address] * (ABNORMAL) CBC with auto differential (06/08/2024 4:30 AM CDT) [facility] WBC 5.5 3.8 - 9.9 K/cumm Hgb 11.9 11.9 - 15.5 g/dL [facility] Hct 37.0 35.6 - 45.5 % [facility] Plt 295 150 - 400 K/cumm [facility] MPV 9.4 9.1 - 12.3 fL [facility] RBC 3.70(L) 3.90 - 5.20 M/cumm [facility] MCV 100.0(H) 81.3 - 96.4 fL [facility] MCH 32.2 27.1 - 33.3 pg [facility] MCHC 32.2(L) 32.3 - 35.7 g/dL [facility] RDW CV 12.8 11.1 - 14.9 % [facility] RDW SD 47.1 35.7 - 48.1 fL [facility] NRBC abs 0.00 0.00 - 0.01 K/cumm [facility] Blood 06/08/2024 4:30 AM CDT 06/08/2024 5:17 AM CDT us Mike Hollis MD LAB BLOOD ORDERABLES F inal Result Performing Organization Address City/[facility]/ZIP Co de Phone Number OLAMIDE CAR [phone] [address] [facility] [place] [address] * POCT glucose (06/07/2024 10:02 PM CDT) [facility] Glucose, POC 130 70 - 199 mg/dL Blood 06/07/2024 10:0 2 PM CDT 06/07/2024 10:02 PM CDT us Coleen Samuels MD LAB POCT ORDERABLES - DEV ICE Final Result Performing Organization Address City/[facility]/ZIP Co de Phone Number OLAMIDE CAR [address] [address] [facility] [place] [address] * POCT glucose (06/07/2024 4:56 PM CDT) Glucose, POC 137 70 - 199 mg/dL Blood 06/07/2024 4:56 PM CDT 06/07/2024 4:56 PM CDT us Coleen Samuels MD LAB POCT ORDERABLES - DEV ICE Final Result Performing Organization Address [place]/[facility] Co de Phone Number OLAMIDE CAR [address] [facility] [place] [address] * (ABNORMAL) POCT glucose (06/07/2024 11:56 AM CDT) Glucose, POC 279(H) 70 - 199 mg/dL Blood 06/07/2024 11:5 6 AM CDT 06/07/2024 11:56 AM CDT us Coleen Samuels MD LAB POCT ORDERABLES - DEV ICE Final Result Performing Organization Address [place]/[facility] Co de Phone Number OLAMIDE JOCELINE [address] [address] [facility] [place] [address] * POCT glucose (06/07/2024 6:13 AM CDT) Glucose, POC 144 70 - 199 mg/dL Blood 06/07/2024 6:13 AM CDT 06/07/2024 6:13 AM CDT us Coleen Samuels MD LAB POCT ORDERABLES - DEV ICE Final Result Performing Organization Address [place]/[facility] Co de Phone Number ZAKIYAIZZY CAR [address] [facility] [place] [address] * eGFR (06/07/2024 4:00 AM CDT) eGFR >90 >=60 mL/min/1. 73 [...] interpretive data was last reviewed 2021. Blood 06/07/2024 4:00 AM CDT 06/07/2024 4:26 AM CDT us Mike Hollis MD LAB BLOOD ORDERABLES F inal Result [facility] [id number] [address] Department [place] [address] * Differential, auto (06/07/2024 4:00 AM CDT) Neutrophil abs 4.1 1.5 - 6.5 K/cumm Imm gran abs 0.1 0.0 - 0.1 K/cumm [facility] Lymphocyte abs 1.1 0.8 - 3.3 K/cumm [facility] Monocyte abs 0.7 0.2 - 0.8 K/cumm [facility] Eosinophil abs 0.2 0.0 - 0.5 K/cumm [facility] Basophil abs 0.1 0.0 - 0.1 K/cumm OLAMIDE Neutrophil pct 67.3 % [facility] Comment: Interpretive Data Percent cell count reference ranges are not reported, since discordance with absolute values may lead to misinterpretation of CBC data. Current Interpretive Data was last revised on 2018. Imm gran pct 0.8 % [facility] Comment: Interpretive Data Percent cell count reference ranges are not reported, since discordance with absolute values may lead to misinterpretation of CBC data. Current Interpretive Data was last revised on 2018. Lymphocyte pct 17.3 % [facility] Comment: Interpretive Data Percent cell count reference ranges are not reported, since discordance with absolute values may lead to misinterpretation of CBC data. Current Interpretive Data was last revised on 2018. Monocyte pct 10.6 % [facility] Comment: Interpretive Data Percent cell count reference ranges are not reported, since discordance with absolute values may lead to misinterpretation of CBC data. Current Interpretive Data was last revised on 2018. Eosinophil pct 2.5 % [facility] Comment: Interpretive Data Percent cell count reference ranges are not reported, since discordance with absolute values may lead to misinterpretation of CBC data. Current Interpretive Data was last revised on 2018. Basophil pct 1.5 % [facility] Comment: Interpretive Data Percent cell count reference ranges are not reported, since discordance with absolute values may lead to misinterpretation of CBC data. Current Interpretive Data was last revised on 2018. Blood 06/07/2024 4:00 AM CDT 06/07/2024 4:26 AM CDT us Mike Hollis MD LAB BLOOD ORDERABLES F inal Result OL[facility] [address] [address] [place] [address] * Phosphorus (06/07/2024 4:00 AM CDT) Phosphorus, pl 2.9 2.3 - 4.5 mg/dL Blood 06/07/2024 4:00 AM CDT 06/07/2024 4:26 AM CDT Elly Julian MD LAB BLOOD ORDERABLE S Final Result Performing Organization Address City/[facility]/ZIP Co de Phone Number [facility] [address] [address] [place] [address] * Magnesium (06/07/2024 4:00 AM CDT) Pathologist [facility] Magnesium 1.9 1.4 - 2.5 mg/dL Blood 06/07/2024 4:00 AM CDT 06/07/2024 4:26 AM CDT Mike Hollis MD LAB BLOOD ORDERABLES F inal Result Performing Organization Address [place]/[facility] Co de Phone Number OLAMIDE [phone] [address] Department [place] [address] * (ABNORMAL) Comprehensive metabolic panel (06/07/2024 4:00 AM CDT) Pathologist [facility] Sodium 131(L) 135 - 145 mmol/L Potassium, pl 4.2 3.3 - 4.9 mmol/L [facility] Chloride 97 97 - 110 mmol/L [facility] CO2 25 22 - 32 mmol/L [facility] Anion gap 9 2 - 15 mmol/L [facility] BUN 17 6 - 25 mg/dL [facility] Creatinine 0.66 0.60 - 1.10 mg/dL [facility] Glucose 133 70 - 199 mg/dL [facility] Comment: Interpretive Data Fasting glucose [...] 2022. Calcium 8.9 8.5 - 10.3 mg/dL [facility] Bilirubin, total 0.5 0.1 - 1.2 mg/dL [facility] Protein, pl 7.2 6.5 - 8.5 g/dL [facility] Albumin 2.8(L) 3.5 - 5.0 g/dL [facility] Alk phos 219(H) 40 - 130 Units/L [facility] ALT <5(L) 7 - 45 Units/L [facility] AST 19 10 - 45 Units/L [facility] Blood 06/07/2024 4:00 AM CDT 06/07/2024 4:26 AM CDT Mike Hollis MD LAB [place]LOOD [place] [address] [address] Department [place] [address] * (ABNORMAL) CBC with auto differential (06/07/2024 4:00 AM CDT) Pathologist [facility] WBC 6.1 3.8 - 9.9 K/cumm Hgb 11.8(L) 11.9 - 15.5 g/dL [facility] Hct 36.7 35.6 - 45.5 % [facility] Plt 299 150 - 400 K/cumm [facility] MPV 9.2 9.1 - 12.3 fL [facility] RBC 3.66(L) 3.90 - 5.20 M/cumm [facility] MCV 100.3(H) 81.3 - 96.4 fL [facility] MCH 32.2 27.1 - 33.3 pg [facility] MCHC 32.2(L) 32.3 - 35.7 g/dL [facility] RDW CV 13.0 11.1 - 14.9 % [facility] RDW SD 48.0 35.7 - 48.1 fL [facility] NRBC abs 0.00 0.00 - 0.01 K/cumm [facility] Blood 06/07/2024 4:00 AM CDT 06/07/2024 4:26 AM CDT Mike Hollis MD LAB BLOOD [place] [address] [address] Department [place] [address] * CTA Upper Extremity Right W WO Contrast (06/06/2024 11:04 PM CDT) Anatomical Region Laterality Modality Upper Extremities Right Computed Tomog bertha 06/06/2024 10:4 0 PM CDT Impressions 06/07/2024 8:47 AM CDT 1. ?? Patent arterial system of the right upper extremity as detailed above. 2. ?? No evidence of hematoma or drainable fluid collection Stat report by [facility] ?? Electronically signed by: Andrea Abernathy M.D. Narrative 06/07/2024 8:47 AM CDT EXAMINATION: CTA UPPER EXTREMITY RIGHT W WO [...] a PICC line inserted through the right basilic vein at the level of the distal arm. There is mild fat stranding within the anterior distal arm, without sizable hematoma or drainable fluid collection. No evidence of active extravasation. Pulmonary arteries: There is a partially visualized curvilinear metallic structure within the right pulmonary artery, similar to prior. Right subclavian artery: No [...] at the level of the antecubital fossa. Procedure Note Andrea Abernathy MD - 06/07/2024 EXAMINATION: CTA UPPER EXTREMITY RIGHT W WO [...] a PICC line inserted through the right basilic vein at the level of the distal arm. There is mild fat stranding within the anterior distal arm, without sizable hematoma or drainable fluid collection. No evidence of active extravasation. Pulmonary arteries: There is a partially visualized curvilinear metallic structure within the right pulmonary artery, similar to prior. Right subclavian artery: No [...] at the level of the antecubital fossa. IMPRESSION: 1. Patent arterial system of the right upper extremity as detailed above. 2. No evidence of hematoma or drainable fluid collection Stat report by [facility] Electronically signed by: Andrea Abernathy M.D. Edilberto Corral DO IMG CT PROCEDURES Fin al Result * POCT glucose (06/06/2024 9:16 PM CDT) [facility] Signature Glucose, POC 123 70 - 199 mg/dL Blood 06/06/2024 9:16 PM CDT 06/06/2024 9:16 PM CDT Coleen Samuels MD LAB POCT ORDERABLES - DEV ICE Final Result OLAMIDE [address] [address] Department [place] [address] * POCT glucose (06/06/2024 6:51 PM CDT) Glucose, POC 147 70 - 199 mg/dL Blood 06/06/2024 6:51 PM CDT 06/06/2024 6:51 PM CDT Coleen aSmuels MD LAB POCT ORDERABLES - DEV ICE Final Result Performing Organization Address [place]/[facility] Phone Number OLAMIDE [phone] [facility] [place] [address] * POCT glucose (06/06/2024 4:42 PM CDT) Glucose, POC 127 70 - 199 mg/dL Blood 06/06/2024 4:42 PM CDT 06/06/2024 4:42 PM CDT Coleen Samuels MD LAB POCT ORDERABLES - DEV ICE Final Result Performing Organization Address [facility] Phone Number OLAMIDE [phone] [facility] [place] [address] * ECG 12 lead (06/06/2024 12:16 PM CDT) 06/06/2024 12:1 6 PM CDT Narrative [facility] - 06/06/2024 1:10 PM CDT Vent Rate: 78 bpm RR Interval: 763 msec HI Interval: 0 msec QRS Duration: 154 msec QT Interval: 473 msec QTC Interval: 506 msec P-R-T [place]: 0 - 23 - 94 degrees IMPRESSION: ATRIAL FIBRILLATION Occasional ventricular pacing INDETERMINATE AXIS Left bundle branch block ABNORMAL ECG Electronically Signed By: Dr. Shiloh Muhammad [facility] Sandro Hong MD ECG ORDERABLES Final Result Performing Organization Address [place]/[facility] de Phone Number [facility] * (ABNORMAL) POCT glucose (06/06/2024 11:53 AM CDT) Glucose, POC 271(H) 70 - 199 mg/dL Blood 06/06/2024 11:5 3 AM CDT 06/06/2024 11:53 AM CDT Coleen Samuels MD LAB POCT ORDERABLES - DEV ICE Final Result OLAMIDE CAR [address] [facility] Department [place] [address] * US Vein Duplex Upper Extremity Right Limited, Unilateral (06/06/2024 8:33 AM CDT) Anatomical Region Laterality Modality Vascular Right Ultrasound 06/06/2024 8:45 AM CDT Impressions 06/06/2024 8:45 AM CDT There is no evidence of acute DVT in the right upper extremity. Electronically signed by: Conrad Davila M.D. Narrative 06/06/2024 8:45 AM CDT EXAMINATION: US VEIN DUPLEX UPPER EXTREMITY RIGHT LIMITED, UNILATERAL HISTORY: The patient is a 63-year-old female who presents with swelling in the right upper extremity. TECHNIQUE: Right upper extremity venous duplex study was performed with reyes scale imaging, color Doppler imaging and spectral waveform analysis. FINDINGS: There is normal compressibility and phasicity in both internal jugular and subclavian veins as well as the right axillary, brachial, radial, ulnar, cephalic and basilic veins. Imaging of these veins reveals no thrombus within the lumen. Procedure Note Conrad Davila MD - 06/06/2024 EXAMINATION: US VEIN DUPLEX UPPER EXTREMITY RIGHT LIMITED, UNILATERAL HISTORY: The patient is a 63-year-old female who presents with swelling in the right upper extremity. TECHNIQUE: Right upper extremity venous duplex study was performed with reyes scale imaging, color Doppler imaging and spectral waveform analysis. FINDINGS: There is normal compressibility and phasicity in both internal jugular and subclavian veins as well as the right axillary, brachial, radial, ulnar, cephalic and basilic veins. Imaging of these veins reveals no thrombus within the lumen. IMPRESSION: There is no evidence of acute DVT in the right upper extremity. Electronically signed by: Conrad Davila M.D. Elly Julian MD IMG US PROCEDURES F inal Result * XR Chest Pa Lateral 2 Views (06/06/2024 8:29 AM CDT) Anatomical Region Laterality Modality Body, Chest N/A Computed Radiogr aphy 06/06/2024 8:33 AM CDT Impressions 06/06/2024 8:33 AM CDT No failure. Electronically signed by: Conrad Davila M.D. Narrative 06/06/2024 8:33 AM CDT EXAMINATION: XR CHEST PA LATERAL 2 VIEWS HISTORY: The patient is a 63-year-old female who has had placement of a PICC line. ??Comparison made with the previous study dated 12/26/2020. TECHNIQUE: AP and lateral view of the chest. FINDINGS: The distal tip of the right PICC line is in the distal superior vena cava. ??Cardiomegaly with aortic atherosclerosis. ??No failure. ??No active infiltrate. Procedure Note Conrad Davila MD - 06/06/2024 EXAMINATION: XR CHEST PA LATERAL 2 VIEWS HISTORY: The patient is a 63-year-old female who has had placement of a PICC line. Comparison made with the previous study dated 12/26/2020. TECHNIQUE: AP and lateral view of the chest. FINDINGS: The distal tip of the right PICC line is in the distal superior vena cava. Cardiomegaly with aortic atherosclerosis. No failure. No active infiltrate. IMPRESSION: No failure. Electronically signed by: Conrad Davila M.D. Elly Julian MD IMG XR PROCEDURES F inal Result * (ABNORMAL) POCT glucose (06/06/2024 7:25 AM CDT) Glucose, POC 216(H) 70 - 199 mg/dL Blood 06/06/2024 7:25 AM CDT 06/06/2024 7:25 AM CDT Coleen Samuels MD LAB POCT ORDERABLES - DEV ICE Final Result Performing Organization Address [place]/[facility] Co de Phone Number OLAMIDE CAR [address] [address] [place] [address] * eGFR (06/06/2024 3:59 AM CDT) [facility] eGFR >90 >=60 mL/min/1. 73 m2 Comment: [...] interpretive data was last reviewed 2021. Blood 06/06/2024 3:59 AM CDT 06/06/2024 4:23 AM CDT us Mike Hollis MD LAB BLOOD ORDERABLES F inal Result Performing Organization Address City/[facility]/[place] [address] [address] Department [place] [address] * Differential, auto (06/06/2024 3:59 AM CDT) Neutrophil abs 3.7 1.5 - 6.5 K/cumm Imm gran abs 0.0 0.0 - 0.1 K/cumm [facility] Lymphocyte abs 1.1 0.8 - 3.3 K/cumm [facility] Monocyte abs 0.7 0.2 - 0.8 K/cumm [facility] Eosinophil abs 0.1 0.0 - 0.5 K/cumm [facility] Basophil abs 0.1 0.0 - 0.1 K/cumm [facility] Neutrophil pct 64.8 % [facility] Comment: Interpretive Data Percent cell count reference ranges are not reported, since discordance with absolute values may lead to misinterpretation of CBC data. Current Interpretive Data was last revised on 2018. Imm gran pct 0.5 % [facility] Comment: Interpretive Data Percent cell count reference ranges are not reported, since discordance with absolute values may lead to misinterpretation of CBC data. Current Interpretive Data was last revised on 2018. Lymphocyte pct 19.0 % [facility] Comment: Interpretive Data Percent cell count reference ranges are not reported, since discordance with absolute values may lead to misinterpretation of CBC data. Current Interpretive Data was last revised on 2018. Monocyte pct 11.9 % [facility] Comment: Interpretive Data Percent cell count reference ranges are not reported, since discordance with absolute values may lead to misinterpretation of CBC data. Current Interpretive Data was last revised on 2018. Eosinophil pct 2.0 % [facility] Comment: Interpretive Data Percent cell count reference ranges are not reported, since discordance with absolute values may lead to misinterpretation of CBC data. Current Interpretive Data was last revised on 2018. Basophil pct 1.8 % [facility] Comment: Interpretive Data Percent cell count reference ranges are not reported, since discordance with absolute values may lead to misinterpretation of CBC data. Current Interpretive Data was last revised on 2018. Blood 06/06/2024 3:5 9 AM CDT 06/06/2024 4:23 AM CDT Mike Hollis MD LAB BLOOD ORDERABLES F inal Result Performing Organization Address City/State/[facility] Co de Phone Number OLAMIDE CAR [address] [facility] [place] [address] * Phosphorus (06/06/2024 3:59 AM CDT) Pathologist [facility] Phosphorus, pl 3.2 2.3 - 4.5 mg/dL Blood 06/06/2024 3:59 AM CDT 06/06/2024 4:23 AM CDT Elly Julian MD LAB BLOOD ORDERABLE S Final Result Performing Organization Address [place]/[facility] Co de Phone Number OLAMIDE CAR [address] [address] [place] [address] * Magnesium (06/06/2024 3:59 AM CDT) [facility] Magnesium 1.8 1.4 - 2.5 mg/dL Blood 06/06/2024 3:59 AM CDT 06/06/2024 4:23 AM CDT Mike Hollis MD LAB BLOOD ORDERABLES F inal Result Performing Organization Address [place]/[facility] Co de Phone Number OLAMIDE CAR [address] [address] [place] [address] * (ABNORMAL) Comprehensive metabolic panel (06/06/2024 3:59 AM CDT) Pathologist [facility] Sodium 133(L) 135 - 145 mmol/L Potassium, pl 4.0 3.3 - 4.9 mmol/L [facility] Chloride 98 97 - 110 mmol/L [facility] CO2 26 22 - 32 mmol/L [facility] Anion gap 9 2 - 15 mmol/L [facility] BUN 20 6 - 25 mg/dL [facility] Creatinine 0.68 0.60 - 1.10 mg/dL [facility] Glucose 241(H) 70 - 199 mg/dL [facility] Comment: Interpretive Data Fasting glucose [...] 2022. Calcium 8.8 8.5 - 10.3 mg/dL [facility] Bilirubin, total 0.4 0.1 - 1.2 mg/dL [facility] Protein, pl 7.3 6.5 - 8.5 g/dL [facility] Albumin 2.9(L) 3.5 - 5.0 g/dL [facility] Alk phos 238(H) 40 - 130 Units/L [facility] ALT <5(L) 7 - 45 Units/L [facility] AST 16 10 - 45 Units/L [facility] Blood 06/06/2024 3:59 AM CDT 06/06/2024 4:23 AM CDT us Mike Hollis MD LAB BLOOD ORDERABLES F inal Result [facility] [address] [address] Department [place] [address] * (ABNORMAL) CBC with auto differential (06/06/2024 3:59 AM CDT) Pathologist [facility] WBC 5.6 3.8 - 9.9 K/cumm Hgb 11.8(L) 11.9 - 15.5 g/dL [facility] Hct 37.3 35.6 - 45.5 % [facility] Plt 319 150 - 400 K/cumm [facility] MPV 9.2 9.1 - 12.3 fL [facility] RBC 3.67(L) 3.90 - 5.20 M/cumm [facility] MCV 101.6(H) 81.3 - 96.4 fL [facility] MCH 32.2 27.1 - 33.3 pg [facility] MCHC 31.6(L) 32.3 - 35.7 g/dL [facility] RDW CV 13.1 11.1 - 14.9 % [facility] RDW SD 49.2(H) 35.7 - 48.1 fL [facility] NRBC abs 0.00 0.00 - 0.01 K/cumm [facility] Blood 06/06/2024 3:59 AM CDT 06/06/2024 4:23 AM CDT Mike Hollis MD LAB BLOOD ORDERABLES F inal Result OLAM[facility] CAR [address] [address] [employer] [place], [place] [id number] * (ABNORMAL) POCT glucose (06/05/2024 8:31 PM CDT) Glucose, POC 205(H) 70 - 199 mg/dL Blood 06/05/2024 8:31 PM CDT 06/05/2024 8:31 PM CDT Elly Julian MD LAB POCT ORDERABLES - DEVICE Final Result Performing Organization Address [place]/[facility] Co de Phone Number OLAMIDE CAR [address] [facility] [employer] [place], [place] [id number] * POCT glucose (06/05/2024 4:47 PM CDT) Glucose, POC 198 70 - 199 mg/dL Blood 06/05/2024 4:47 PM CDT 06/05/2024 4:47 PM CDT Elly Julian MD LAB POCT ORDERABLES - DEVICE Final Result Performing Organization Address [place]/[facility] Co de Phone Number OLAMIDE CAR [address] [facility] [facility] [place] [address] * IR PICC Line Placement Over 5 Years of Age (06/05/2024 3:12 PM CDT) Anatomical Region Laterality Modality Body N/A X-Ray Angiograph y 06/05/2024 3:25 PM CDT Impressions 06/05/2024 3:25 PM CDT Successful PICC placement using ultrasound guidance. Electronically signed by: Blaine Nash M.D. Narrative 06/05/2024 3:25 PM CDT EXAMINATION: IR PICC LINE PLACEMENT OVER 5 YEARS OF AGE DATE: 06/05/2024 2:05 PM HISTORY: sepsis Unsuccessful attempt at bedside PICC line placement by in-house vascular team. TECHNIQUE: The risks, benefits, and alternatives were discussed and informed consent was obtained. ??Prior to beginning the procedure, universal protocol was performed to confirm the patient's identity and the planned procedure. ??Maximum sterile barriers including cap, mask, hand hygiene, sterile gloves, sterile gown, large sterile drape, sterile gel, sterile ultrasound probe cover, and 2% chlorhexidine for cutaneous antisepsis were used. The skin over the right basilic vein was sterilely prepped, draped, and infiltrated with lidocaine. ??Prior to the procedure, this target vessel was evaluated by ultrasound and an image of the patent vessel demonstrating vessel patency was recorded in the patient's electronic medical record. ??This vessel was then accessed using real-time ultrasound guidance. ??A guidewire was passed centrally using fluoroscopic guidance. ??The intravascular length from the access site to the right atrium was assessed. ??After dilating the tract, a 45 cm, 5-Guyanese dual-lumen PICC was inserted through the peel-away sheath. The peel-away sheath was then removed. ??The catheter was flushed and secured in place. ??A sterile dressing was applied. The final fluoroscopic image demonstrates the catheter with its tip at the cavoatrial junction. ??No complications were identified. The catheter is ready for immediate use. ??When treatment is completed, this catheter can be removed at the bedside according to standard hospital protocol. Procedure Note Blaine Nash MD - 06/05/2024 EXAMINATION: IR PICC LINE PLACEMENT OVER 5 YEARS OF AGE DATE: 06/05/2024 2:05 PM HISTORY: sepsis Unsuccessful attempt at bedside PICC line placement by in-house vascular team. TECHNIQUE: The risks, benefits, and alternatives were discussed and informed consent was obtained. Prior to beginning the procedure, universal protocol was performed to [...] After dilating the tract, a 45 cm, 5-Guyanese dual-lumen PICC was inserted through the peel-away sheath. The peel-away sheath was then removed. The catheter was flushed and secured in place. A sterile dressing was applied. The final fluoroscopic image demonstrates the catheter with its tip at the cavoatrial junction. No complications were identified. The catheter is ready for immediate use. When treatment is completed, this catheter can be removed at the bedside according to standard hospital protocol. IMPRESSION: Successful PICC placement using ultrasound guidance. Electronically signed by: Blaine Nash M.D. Eben Pettit MD IMG IR PROCEDURES Final Result * XR Chest 1 View (06/05/2024 1:17 PM CDT) Anatomical Region Laterality Modality Body, Chest N/A Computed Radiogr aphy 06/05/2024 1:18 PM CDT Impressions 06/05/2024 1:18 PM CDT Cardiomegaly. Electronically signed by: Conrad Davila M.D. Narrative 06/05/2024 1:18 PM CDT EXAMINATION: XR CHEST 1 VIEW HISTORY: The patient is a 63-year-old female who has had an attempted PICC line placement. ??Comparison made with the previous study dated 05/29/2024. TECHNIQUE: AP portable view of the chest. FINDINGS: Cardiomegaly with aortic atherosclerosis. ??No failure. ??No active infiltrate. Procedure Note Conrad Davila MD - 06/05/2024 EXAMINATION: XR CHEST 1 VIEW HISTORY: The patient is a 63-year-old female who has had an attempted PICC line placement. Comparison made with the previous study dated 05/29/2024. TECHNIQUE: AP portable view of the chest. FINDINGS: Cardiomegaly with aortic atherosclerosis. No failure. No active infiltrate. IMPRESSION: Cardiomegaly. Electronically signed by: Conrad Davila M.D. Elly Julian MD IMG XR PROCEDURES F inal Result * (ABNORMAL) POCT glucose (06/05/2024 11:29 AM CDT) Glucose, POC 231(H) 70 - 199 mg/dL Blood 06/05/2024 11:2 9 AM CDT 06/05/2024 11:29 AM CDT Elly Julian MD LAB POCT ORDERABLES - DEVICE Final Result OL[facility] [id number] [facility] Department [place] [address] * (ABNORMAL) Protime-INR (06/05/2024 7:55 AM CDT) PT 20.9(H) 9.7 - 13.0 sec INR 1.91(H) 0.90 - 1.20 [facility] CAR Comment: Interpretive data Oral anticoagulant therapeutic ranges: Venous thromboembolism prophylaxis or treatment: 2.0-3.0 CARDIOLOGY Standard range: 2.0-3.0 High-intensity range: 2.5-3.5 Refer to indication-specific guidelines for appropriate target ranges for prosthetic heart valve replacement. Current interpretive data was last revised on 2019. Blood 06/05/2024 7:55 AM CDT 06/05/2024 8:01 AM CDT Elly Julian MD LAB BLOOD ORDERABLE S Final Result Performing Organization Address [place] de Phone Number OLAMIDE CAR [address] [address] [facility] [place] [address] * POCT glucose (06/05/2024 6:28 AM CDT) Glucose, POC 175 70 - 199 mg/dL Blood 06/05/2024 6:28 AM CDT 06/05/2024 6:28 AM CDT Elly Julian MD LAB POCT ORDERABLES - DEVICE Final Result Performing Organization Address [place] de Phone Number OLAMIDE CAR [address] [address] [facility] [place] [address] * POCT glucose (06/05/2024 2:04 AM CDT) Glucose, POC 178 70 - 199 mg/dL Blood 06/05/2024 2:04 AM CDT 06/05/2024 2:04 AM CDT Elly Juilan MD LAB POCT ORDERABLES - DEVICE Final Result Performing Organization Address [place] de Phone Number OLAMIDE CAR [address] [place] [address] * eGFR (06/05/2024 12:31 AM CDT) eGFR >90 >=60 mL/min/1. 73 [...] interpretive data was last reviewed 2021. Blood 06/05/2024 12:3 1 AM CDT 06/05/2024 1:07 AM CDT Mike Hollis MD LAB BLOOD ORDERABLES F inal Result [facility] [id number] [address] Department [place] [address] * Differential, auto (06/05/2024 12:31 AM CDT) Pathologist [facility] Neutrophil abs 4.2 1.5 - 6.5 K/cumm Imm gran abs 0.0 0.0 - 0.1 K/cumm [facility] Lymphocyte abs 1.2 0.8 - 3.3 K/cumm [facility] Monocyte abs 0.6 0.2 - 0.8 K/cumm [facility] Eosinophil abs 0.1 0.0 - 0.5 K/cumm [facility] Basophil abs 0.1 0.0 - 0.1 K/cumm [facility] Neutrophil pct 66.8 % [facility] Comment: Interpretive Data Percent cell count reference ranges are not reported, since discordance with absolute values may lead to misinterpretation of CBC data. Current Interpretive Data was last revised on 2018. Imm gran pct 0.5 % OL[facility]IDE Comment: Interpretive Data Percent cell count reference ranges are not reported, since discordance with absolute values may lead to misinterpretation of CBC data. Current Interpretive Data was last revised on 2018. Lymphocyte pct 18.6 % [facility] Comment: Interpretive Data Percent cell count reference ranges are not reported, since discordance with absolute values may lead to misinterpretation of CBC data. Current Interpretive Data was last revised on 2018. Monocyte pct 10.1 % [facility] Comment: Interpretive Data Percent cell count reference ranges are not reported, since discordance with absolute values may lead to misinterpretation of CBC data. Current Interpretive Data was last revised on 2018. Eosinophil pct 2.1 % [facility] Comment: Interpretive Data Percent cell count reference ranges are not reported, since discordance with absolute values may lead to misinterpretation of CBC data. Current Interpretive Data was last revised on 2018. Basophil pct 1.9 % [facility] Comment: Interpretive Data Percent cell count reference ranges are not reported, since discordance with absolute values may lead to misinterpretation of CBC data. Current Interpretive Data was last revised on 2018. Blood 06/05/2024 12:3 1 AM CDT 06/05/2024 1:07 AM CDT Mike Hollis MD LAB BLOOD ORDERABLES F inal Result Performing Organization Address [place]/ZIP Co de Phone Number OL[facility] [address] [address] [place] [address] * Phosphorus (06/05/2024 12:31 AM CDT) Phosphorus, pl 2.7 2.3 - 4.5 mg/dL Blood 06/05/2024 12:3 1 AM CDT 06/05/2024 1:07 AM CDT Elly Julian MD LAB BLOOD ORDERABLE S Final Result Performing Organization Address City/[facility]/ZIP Co de Phone Number [facility] [address] [address] Department [place] [address] * Magnesium (06/05/2024 12:31 AM CDT) Magnesium 2.0 1.4 - 2.5 mg/dL Blood 06/05/2024 12:3 1 AM CDT 06/05/2024 1:07 AM CDT us Mike Hollis MD LAB BLOOD ORDERABLES F inal Result [facility] [address] [address] Department [place] [address] * (ABNORMAL) Comprehensive metabolic panel (06/05/2024 12:31 AM CDT) Sodium 131(L) 135 - 145 mmol/L Potassium, pl 4.8 3.3 - 4.9 mmol/L [facility] Chloride 96(L) 97 - 110 mmol/L [facility] CO2 26 22 - 32 mmol/L [facility] Anion gap 9 2 - 15 mmol/L [facility] BUN 18 6 - 25 mg/dL [facility] Creatinine 0.68 0.60 - 1.10 mg/dL [facility] Glucose 170 70 - 199 mg/dL [facility] Comment: [...] 9.0 8.5 - 10.3 mg/dL [facility] Bilirubin, total 0.7 0.1 - 1.2 mg/dL [facility] Protein, pl 8.0 6.5 - 8.5 g/dL [facility] Albumin 3.1(L) 3.5 - 5.0 g/dL [facility] Alk phos 284(H) 40 - 130 Units/L [facility] ALT 5(L) 7 - 45 Units/L [facility] AST 19 10 - 45 Units/L [facility] Blood 06/05/2024 12:3 1 AM CDT 06/05/2024 1:07 AM CDT Mike Hollis MD LAB BLOOD ORDERABLES F inal Result [facility] CAR [address] [address] [place] [address] * (ABNORMAL) CBC with auto differential (06/05/2024 12:31 AM CDT) WBC 6.3 3.8 - 9.9 K/cumm Hgb 12.9 11.9 - 15.5 g/dL [facility] Hct 39.7 35.6 - 45.5 % [facility] Plt 371 150 - 400 K/cumm [facility] MPV 9.1 9.1 - 12.3 fL [facility] RBC 3.92 3.90 - 5.20 M/cumm [facility] MCV 101.3(H) 81.3 - 96.4 fL [facility] MCH 32.9 27.1 - 33.3 pg [facility] MCHC 32.5 32.3 - 35.7 g/dL [facility] CH RDW CV 13.2 11.1 - 14.9 % [facility] CH RDW SD 49.4(H) 35.7 - 48.1 fL [facility] NRBC abs 0.00 0.00 - 0.01 K/cumm [facility] Blood 06/05/2024 12:3 1 AM CDT 06/05/2024 1:07 AM CDT Mike Hollis MD LAB BLOOD ORDERABLES F inal Result [facility] CAR [address] [address] [place] [address] * POCT glucose (06/04/2024 8:31 PM CDT) Glucose, POC 135 70 - 199 mg/dL Blood 06/04/2024 8:31 PM CDT 06/04/2024 8:31 PM CDT us Elly Julian MD LAB POCT ORDERABLES - DEVICE Final Result Performing Organization Address [place] de Phone Number OL[facility]IDE CAR [address] [address] [facility] [place] [address] * POCT glucose (06/04/2024 4:31 PM CDT) Glucose, POC 105 70 - 199 mg/dL Blood 06/04/2024 4:31 PM CDT 06/04/2024 4:31 PM CDT us Elly Julian MD LAB POCT ORDERABLES - DEVICE Final Result Performing Organization Address [facility] Phone Number ZAKIYAIZZY [address] [address] [facility] [place] [address] * (ABNORMAL) POCT glucose (06/04/2024 11:11 AM CDT) Glucose, POC 274(H) 70 - 199 mg/dL Blood 06/04/2024 11:1 1 AM CDT 06/04/2024 11:11 AM CDT us Elly Julian MD LAB POCT ORDERABLES - DEVICE Final Result Performing Organization Address [place] de Phone Number ZAKIYAIZZY [address] [address] [facility] [place] [address] * POCT glucose (06/04/2024 6:25 AM CDT) Glucose, POC 118 70 - 199 mg/dL Blood 06/04/2024 6:25 AM CDT 06/04/2024 6:25 AM CDT us Elly Julian MD LAB POCT ORDERABLES - DEVICE Final Result Performing Organization Address City/[facility]/ZIP Co de Phone Number OLAMIDE CAR [address] [address] Department [employer] [place], [place] [id number] * eGFR (06/04/2024 4:53 AM CDT) [facility] eGFR >90 >=60 mL/min/1. 73 m2 Comment: [...] interpretive data was last reviewed 2021. Blood 06/04/2024 4:53 AM CDT 06/04/2024 5:22 AM CDT us Mike Hollis MD LAB BLOOD ORDERABLES F inal Result Performing Organization Address City/[facility]/[place] [address] [address] Department [place] [address] * Differential, auto (06/04/2024 4:53 AM CDT) Neutrophil abs 4.0 1.5 - 6.5 K/cumm Imm gran abs 0.1 0.0 - 0.1 K/cumm [facility] Lymphocyte abs 1.3 0.8 - 3.3 K/cumm [facility] Monocyte abs 0.6 0.2 - 0.8 K/cumm [facility] Eosinophil abs 0.1 0.0 - 0.5 K/cumm [facility] Basophil abs 0.1 0.0 - 0.1 K/cumm [facility] Neutrophil pct 64.4 % [facility] Comment: Interpretive Data Percent cell count reference ranges are not reported, since discordance with absolute values may lead to misinterpretation of CBC data. Current Interpretive Data was last revised on 2018. Imm gran pct 0.8 % [facility] Comment: Interpretive Data Percent cell count reference ranges are not reported, since discordance with absolute values may lead to misinterpretation of CBC data. Current Interpretive Data was last revised on 2018. Lymphocyte pct 21.7 % [facility] Comment: Interpretive Data Percent cell count reference ranges are not reported, since discordance with absolute values may lead to misinterpretation of CBC data. Current Interpretive Data was last revised on 2018. Monocyte pct 9.5 % [facility] Comment: Interpretive Data Percent cell count reference ranges are not reported, since discordance with absolute values may lead to misinterpretation of CBC data. Current Interpretive Data was last revised on 2018. Eosinophil pct 2.1 % [facility] Comment: Interpretive Data Percent cell count reference ranges are not reported, since discordance with absolute values may lead to misinterpretation of CBC data. Current Interpretive Data was last revised on 2018. Basophil pct 1.5 % [facility] Comment: Interpretive Data Percent cell count reference ranges are not reported, since discordance with absolute values may lead to misinterpretation of CBC data. Current Interpretive Data was last revised on 2018. Blood 06/04/2024 4:53 AM CDT 06/04/2024 5:22 AM CDT us Mike Hollis MD LAB BLOOD ORDERABLES F inal Result [facility] CAR [address] [address] [place] [address] * Phosphorus (06/04/2024 4:53 AM CDT) Pathologist [facility] Phosphorus, pl 3.0 2.3 - 4.5 mg/dL Blood 06/04/2024 4:53 AM CDT 06/04/2024 5:22 AM CDT Elly Julian MD LAB BLOOD ORDERABLE S Final Result Performing Organization Address [place] de Phone Number OLAMIDE CAR [address] [address] Department [place] [address] * Magnesium (06/04/2024 4:53 AM CDT) Pathologist [facility] Magnesium 2.1 1.4 - 2.5 mg/dL Blood 06/04/2024 4:53 AM CDT 06/04/2024 5:22 AM CDT Mike Hollis MD LAB BLOOD ORDERABLES F inal Result Performing Organization Address [place] de Phone Number OLAMIDE CAR [address] [address] Department [place] [address] * (ABNORMAL) Comprehensive metabolic panel (06/04/2024 4:53 AM CDT) Pathologist [facility] Sodium 131(L) 135 - 145 mmol/L Potassium, pl 4.2 3.3 - 4.9 mmol/L [facility] Chloride 95(L) 97 - 110 mmol/L [facility] CO2 28 22 - 32 mmol/L [facility] Anion gap 8 2 - 15 mmol/L [facility] BUN 18 6 - 25 mg/dL [facility] Creatinine 0.72 0.60 - 1.10 mg/dL [facility] Glucose 104 70 - 199 mg/dL [facility] Comment: Interpretive Data Fasting glucose [...] interpretive data was last revised 2022. Calcium 8.7 8.5 - 10.3 mg/dL [facility] Bilirubin, total 0.6 0.1 - 1.2 mg/dL [facility] Protein, pl 7.6 6.5 - 8.5 g/dL [facility] Albumin 3.1(L) 3.5 - 5.0 g/dL [facility] Alk phos 272(H) 40 - 130 Units/L [facility] ALT <5(L) 7 - 45 Units/L [facility] AST 20 10 - 45 Units/L [facility] Blood 06/04/2024 4:53 AM CDT 06/04/2024 5:22 AM CDT us Mike Hollis MD LAB BLOOD ORDERABLES F inal Result [facility] [address] [address] Department [place] [address] * (ABNORMAL) CBC with auto differential (06/04/2024 4:53 AM CDT) WBC 6.2 3.8 - 9.9 K/cumm Hgb 12.2 11.9 - 15.5 g/dL [facility] Hct 38.0 35.6 - 45.5 % [facility] Plt 332 150 - 400 K/cumm [facility] MPV 9.0(L) 9.1 - 12.3 fL [facility] RBC 3.73(L) 3.90 - 5.20 M/cumm [facility] MCV 101.9(H) 81.3 - 96.4 fL [facility] MCH 32.7 27.1 - 33.3 pg [facility] MCHC 32.1(L) 32.3 - 35.7 g/dL [facility] RDW CV 13.4 11.1 - 14.9 % [facility] RDW SD 49.9(H) 35.7 - 48.1 fL [facility] NRBC abs 0.00 0.00 - 0.01 K/cumm [facility] Blood 06/04/2024 4:53 AM CDT 06/04/2024 5:22 AM CDT Mike Hollis MD LAB BLOOD ORDERABLES F inal Result Performing Organization Address [place] Co de Phone Number OLAMIDE [phone] [address] [facility] [place] [address] * POCT glucose (06/03/2024 8:08 PM CDT) Glucose, POC 141 70 - 199 mg/dL Blood 06/03/2024 8:08 PM CDT 06/03/2024 8:08 PM CDT Elly Julian MD LAB POCT ORDERABLES - DEVICE Final Result Performing Organization Address [facility] de Phone Number ZAKIYAIZZY [address] [address] [facility] [place] [address] * POCT glucose (06/03/2024 4:26 PM CDT) Glucose, POC 94 70 - 199 mg/dL Blood 06/03/2024 4:26 PM CDT 06/03/2024 4:26 PM CDT Elly Julian MD LAB POCT ORDERABLES - DEVICE Final Result Performing Organization Address [place] de Phone Number OLAMIDE [address] [address] [facility] [place] [address] * POCT glucose (06/03/2024 11:26 AM CDT) Glucose, POC 139 70 - 199 mg/dL Blood 06/03/2024 11:2 6 AM CDT 06/03/2024 11:26 AM CDT Elly Julian MD LAB POCT ORDERABLES - DEVICE Final Result Performing Organization Address [place] de Phone Number OLAMIDE [address] [address] [facility] [place] [address] * POCT glucose (06/03/2024 6:48 AM CDT) Glucose, POC 113 70 - 199 mg/dL Blood 06/03/2024 6:48 AM CDT 06/03/2024 6:48 AM CDT Elly Julian MD LAB POCT ORDERABLES - DEVICE Final Result Performing Organization Address [place] Phone Number OLAMIDE [phone] [address] [place] [address] * eGFR (06/03/2024 3:05 AM CDT) eGFR 83 >=60 mL/min/1. 73 [...] interpretive data was last reviewed 2021. Blood 06/03/2024 3:05 AM CDT 06/03/2024 4:20 AM CDT us Mike Hollis MD LAB BLOOD ORDERABLES F inal Result [facility] [address] [address] Department of Laboratories [place], [place] [id number] * (ABNORMAL) Differential, auto (06/03/2024 3:05 AM CDT) Neutrophil abs 3.4 1.5 - 6.5 K/cumm Imm gran abs 0.0 0.0 - 0.1 K/cumm [facility] Lymphocyte abs 1.5 0.8 - 3.3 K/cumm [facility] Monocyte abs 0.9(H) 0.2 - 0.8 K/cumm [facility] Eosinophil abs 0.2 0.0 - 0.5 K/cumm [facility] Basophil abs 0.1 0.0 - 0.1 K/cumm [facility] Neutrophil pct 56.9 % [facility] Comment: Interpretive Data Percent cell count reference ranges are not reported, since discordance with absolute values may lead to misinterpretation of CBC data. Current Interpretive Data was last revised on 2018. Imm gran pct 0.5 % [facility] Comment: Interpretive Data Percent cell count reference ranges are not reported, since discordance with absolute values may lead to misinterpretation of CBC data. Current Interpretive Data was last revised on 2018. Lymphocyte pct 24.5 % [facility] Comment: Interpretive Data Percent cell count reference ranges are not reported, since discordance with absolute values may lead to misinterpretation of CBC data. Current Interpretive Data was last revised on 2018. Monocyte pct 14.3 % [facility] Comment: Interpretive Data Percent cell count reference ranges are not reported, since discordance with absolute values may lead to misinterpretation of CBC data. Current Interpretive Data was last revised on 2018. Eosinophil pct 2.5 % [facility] Comment: Interpretive Data Percent cell count reference ranges are not reported, since discordance with absolute values may lead to misinterpretation of CBC data. Current Interpretive Data was last revised on 2018. Basophil pct 1.3 % [facility] Comment: Interpretive Data Percent cell count reference ranges are not reported, since discordance with absolute values may lead to misinterpretation of CBC data. Current Interpretive Data was last revised on 2018. Blood 06/03/2024 3:05 AM CDT 06/03/2024 4:21 AM CDT Mike Hollis MD LAB BLOOD ORDERABLES F inal Result Performing Organization Address [place] Co de Phone Number OLAMIDE [phone] [address] [facility] [place] [address] * Phosphorus (06/03/2024 3:05 AM CDT) Phosphorus, pl 3.3 2.3 - 4.5 mg/dL Blood 06/03/2024 3:05 AM CDT 06/03/2024 4:20 AM CDT Elly Julian MD LAB BLOOD ORDERABLE S Final Result Performing Organization Address [facility] Co de Phone Number [facility] [address] [address] [place] [address] * Magnesium (06/03/2024 3:05 AM CDT) Magnesium 2.0 1.4 - 2.5 mg/dL Blood 06/03/2024 3:05 AM CDT 06/03/2024 4:20 AM CDT Mike Hollis MD LAB BLOOD ORDERABLES F inal Result Performing Organization Address [facility] Co de Phone Number [facility] [address] [address] [place] [address] * (ABNORMAL) Comprehensive metabolic panel (06/03/2024 3:05 AM CDT) Sodium 133(L) 135 - 145 mmol/L Potassium, pl 4.4 3.3 - 4.9 mmol/L [facility] Chloride 96(L) 97 - 110 mmol/L [facility] CO2 29 22 - 32 mmol/L [facility] Anion gap 8 2 - 15 mmol/L [facility] BUN 20 6 - 25 mg/dL [facility] Creatinine 0.80 0.60 - 1.10 mg/dL [facility] Glucose 120 70 - 199 mg/dL [facility] Comment: [...] interpretive data was last revised 2022. Calcium 8.7 8.5 - 10.3 mg/dL [facility] Bilirubin, total 0.5 0.1 - 1.2 mg/dL [facility] Protein, pl 7.3 6.5 - 8.5 g/dL [facility] Albumin 2.8(L) 3.5 - 5.0 g/dL [facility] Alk phos 287(H) 40 - 130 Units/L [facility] ALT <5(L) 7 - 45 Units/L [facility] AST 20 10 - 45 Units/L [facility] Blood 06/03/2024 3:05 AM CDT 06/03/2024 4:20 AM CDT us Mike Hollis MD LAB BLOOD ORDERABLES F inal Result [facility] [address] [address] Department [place] [address] * (ABNORMAL) CBC with auto differential (06/03/2024 3:05 AM CDT) [facility] WBC 6.0 3.8 - 9.9 K/cumm Hgb 11.8(L) 11.9 - 15.5 g/dL [facility] Hct 37.6 35.6 - 45.5 % [facility] Plt 374 150 - 400 K/cumm [facility] MPV 9.3 9.1 - 12.3 fL [facility] RBC 3.67(L) 3.90 - 5.20 M/cumm [facility] MCV 102.5(H) 81.3 - 96.4 fL [facility] MCH 32.2 27.1 - 33.3 pg [facility] MCHC 31.4(L) 32.3 - 35.7 g/dL [facility] RDW CV 13.8 11.1 - 14.9 % [facility] RDW SD 51.8(H) 35.7 - 48.1 fL [facility] NRBC abs 0.00 0.00 - 0.01 K/cumm [facility] Blood 06/03/2024 3:05 AM CDT 06/03/2024 4:21 AM CDT Mike Hollis MD LAB BLOOD ORDERABLES F inal Result Performing Organization Address [facility] Co de Phone Number [facility] [address] [address] [email or web address] [address] * POCT glucose (06/02/2024 8:54 PM CDT) [facility] Glucose, POC 144 70 - 199 mg/dL Blood 06/02/2024 8:54 PM CDT 06/02/2024 8:54 PM CDT Elly Julian MD LAB POCT ORDERABLES - DEVICE Final Result Performing Organization Address [place] Co de Phone Number [facility] [address] [address] [employer] [place], [place] [id number] * POCT glucose (06/02/2024 4:13 PM CDT) Glucose, POC 147 70 - 199 mg/dL Blood 06/02/2024 4:13 PM CDT 06/02/2024 4:13 PM CDT Elly Julian MD LAB POCT ORDERABLES - DEVICE Final Result Performing Organization Address [place] Phone Number OLAMIDE [phone] [address] [place] [address] * POCT glucose (06/02/2024 11:28 AM CDT) Glucose, POC 151 70 - 199 mg/dL Blood 06/02/2024 11:2 8 AM CDT 06/02/2024 11:28 AM CDT Elly Julian MD LAB POCT ORDERABLES - DEVICE Final Result Performing Organization Address [facility] [place] [address] [address] [place] [address] * ECG 12 lead (06/02/2024 11:12 AM CDT) 06/02/2024 11:1 2 AM CDT Narrative [facility] - 06/02/2024 12:30 PM CDT Vent Rate: 86 bpm RR Interval: 697 msec HI Interval: 0 msec QRS Duration: 157 msec QT Interval: 470 msec QTC Interval: 513 msec P-R-T [place]: 0 - 38 - 88 degrees IMPRESSION: ATRIAL FIBRILLATION WITH ABERRANT CONDUCTION OR VENTRICULAR PREMATURE COMPLEXES LEFT BUNDLE BRANCH BLOCK ??[120+ ms QRS DURATION, 80+ ms Q/S IN V1/V2, 85+ ms R IN I/aVL/V5/V6] ABNORMAL ECG Compared to prior EKG, ventricular pacing is no longer present Electronically Signed By: Antonio Carlos MD Ty Mcfarland MD ECG ORDERABLES Final Resul t [facility] * POCT glucose (06/02/2024 6:38 AM CDT) Glucose, POC 155 70 - 199 mg/dL Blood 06/02/2024 6:38 AM CDT 06/02/2024 6:38 AM CDT Elly Julian MD LAB POCT ORDERABLES - DEVICE Final Result [facility] CAR [address] [address] Department [place] [address] * eGFR (06/02/2024 2:54 AM CDT) eGFR >90 >=60 mL/min/1. 73 [...] interpretive data was last reviewed 2021. Blood 06/02/2024 2:54 AM CDT 06/02/2024 3:26 AM CDT us Mike Hollis MD LAB BLOOD ORDERABLES F inal Result OL[facility] [address] [address] Department [place] [address] * Differential, auto (06/02/2024 2:54 AM CDT) Neutrophil abs 3.6 1.5 - 6.5 K/cumm Imm gran abs 0.1 0.0 - 0.1 K/cumm [facility] [facility] Lymphocyte abs 1.1 0.8 - 3.3 K/cumm [facility] Monocyte abs 0.7 0.2 - 0.8 K/cumm [facility] Eosinophil abs 0.1 0.0 - 0.5 K/cumm [facility] Basophil abs 0.1 0.0 - 0.1 K/cumm [facility] Neutrophil pct 63.0 % [facility] Comment: Interpretive Data Percent cell count reference ranges are not reported, since discordance with absolute values may lead to misinterpretation of CBC data. Current Interpretive Data was last revised on 2018. Imm gran pct 0.9 % [facility] Comment: Interpretive Data Percent cell count reference ranges are not reported, since discordance with absolute values may lead to misinterpretation of CBC data. Current Interpretive Data was last revised on 2018. Lymphocyte pct 20.0 % [facility] Comment: Interpretive Data Percent cell count reference ranges are not reported, since discordance with absolute values may lead to misinterpretation of CBC data. Current Interpretive Data was last revised on 2018. Monocyte pct 12.2 % [facility] Comment: Interpretive Data Percent cell count reference ranges are not reported, since discordance with absolute values may lead to misinterpretation of CBC data. Current Interpretive Data was last revised on 2018. Eosinophil pct 2.5 % [facility] Comment: Interpretive Data Percent cell count reference ranges are not reported, since discordance with absolute values may lead to misinterpretation of CBC data. Current Interpretive Data was last revised on 2018. Basophil pct 1.4 % [facility] Comment: Interpretive Data Percent cell count reference ranges are not reported, since discordance with absolute values may lead to misinterpretation of CBC data. Current Interpretive Data was last revised on 2018. Blood 06/02/2024 2:54 AM CDT 06/02/2024 3:26 AM CDT Result [facility] Mike Hollis MD LAB BLOOD ORDERABLES F inal Result Performing Organization Address [place]/[facility] Co de Phone Number OLAMIDE [address] [address] [place] [address] * Phosphorus (06/02/2024 2:54 AM CDT) Pathologist [facility] Phosphorus, pl 3.5 2.3 - 4.5 mg/dL Blood 06/02/2024 2:54 AM CDT 06/02/2024 3:26 AM CDT Result [facility] Elly Julian MD LAB BLOOD ORDERABLE S Final Result Performing Organization Address [facility] de Phone Number OLAMIDE [address] [address] [place] [address] * Magnesium (06/02/2024 2:54 AM CDT) [facility] Magnesium 2.0 1.4 - 2.5 mg/dL Blood 06/02/2024 2:54 AM CDT 06/02/2024 3:26 AM CDT Mike Hollis MD LAB BLOOD ORDERABLES F inal Result Performing Organization Address [place]/[facility] de Phone Number OLAMIDE [phone] [address] [place] [address] * (ABNORMAL) Comprehensive metabolic panel (06/02/2024 2:54 AM CDT) Pathologist [facility] Sodium 131(L) 135 - 145 mmol/L Potassium, pl 3.9 3.3 - 4.9 mmol/L [facility] Chloride 93(L) 97 - 110 mmol/L [facility] CO2 29 22 - 32 mmol/L [facility] Anion gap 9 2 - 15 mmol/L [facility] BUN 14 6 - 25 mg/dL [facility] Creatinine 0.69 0.60 - 1.10 mg/dL [facility] Glucose 151 70 - 199 mg/dL [facility] Comment: [...] Calcium 8.6 8.5 - 10.3 mg/dL [facility] Bilirubin, total 0.7 0.1 - 1.2 mg/dL [facility] Protein, pl 7.3 6.5 - 8.5 g/dL [facility] Albumin 2.7(L) 3.5 - 5.0 g/dL [facility] Alk phos 307(H) 40 - 130 Units/L [facility] ALT 5(L) 7 - 45 Units/L [facility] AST 18 10 - 45 Units/L [facility] Blood 06/02/2024 2:54 AM CDT 06/02/2024 3:26 AM CDT Mike Hollis MD LAB BLOOD ORDERABLES F inal Result [facility] [address] [address] Department [place] [address] * (ABNORMAL) CBC with auto differential (06/02/2024 2:54 AM CDT) WBC 5.6 3.8 - 9.9 K/cumm Hgb 11.5(L) 11.9 - 15.5 g/dL [facility] Hct 35.9 35.6 - 45.5 % [facility] Plt 351 150 - 400 K/cumm [facility] MPV 9.3 9.1 - 12.3 fL [facility] RBC 3.54(L) 3.90 - 5.20 M/cumm [facility] MCV 101.4(H) 81.3 - 96.4 fL [facility] MCH 32.5 27.1 - 33.3 pg [facility] MCHC 32.0(L) 32.3 - 35.7 g/dL [facility] RDW CV 13.7 11.1 - 14.9 % [facility] RDW SD 51.3(H) 35.7 - 48.1 fL [facility] NRBC abs 0.00 0.00 - 0.01 K/cumm [facility] Blood 06/02/2024 2:54 AM CDT 06/02/2024 3:26 AM CDT Mike Hollis MD LAB BLOOD ORDERABLES F inal Result Performing Organization Address [place]/[facility] Co de Phone Number OLAMIDE CAR [address] [address] [place] [address] * POCT glucose (06/02/2024 2:40 AM CDT) [facility] Signature Glucose, POC 137 70 - 199 mg/dL Blood 06/02/2024 2:40 AM CDT 06/02/2024 2:40 AM CDT Elly Julian MD LAB POCT ORDERABLES - DEVICE Final Result Performing Organization Address [place]/[facility] Co de Phone Number OLAMIDE [phone] [address] [place] [address] * ECG 12 lead (06/02/2024 12:29 AM CDT) 06/02/2024 12:2 9 AM CDT Narrative [facility] - 06/02/2024 7:29 AM CDT Vent Rate: 76 bpm RR Interval: 782 msec HI Interval: 0 msec QRS Duration: 158 msec QT Interval: 494 msec QTC Interval: 525 msec P-R-T [place]: 0 - 116 - 120 degrees IMPRESSION: ATRIAL FIBRILLATION WITH demand ventricular pacemaker MARKED RIGHT AXIS DEVIATION ??[QRS AXIS > 100] INTRAVENTRICULAR CONDUCTION DELAY ??[130+ ms QRS DURATION] ABNORMAL ECG Compared to prior EKG, demand ventricular pacing is new Electronically Signed By: Antonio Carlos MD Ty Mcfarland MD ECG ORDERABLES Final Resul t Performing Organization Address [place]/[facility] de Phone Number [facility] * (ABNORMAL) POCT glucose (06/01/2024 10:00 PM CDT) Glucose, POC 205(H) 70 - 199 mg/dL Blood 06/01/2024 10:0 0 PM CDT 06/01/2024 10:00 PM CDT Elly Julian MD LAB POCT ORDERABLES - DEVICE Final Result Performing Organization Address [facility] Phone Number [facility] [address] [address] [place] [address] * POCT glucose (06/01/2024 4:54 PM CDT) Glucose, POC 128 70 - 199 mg/dL Blood 06/01/2024 4:54 PM CDT 06/01/2024 4:54 PM CDT Elly Julian MD LAB POCT ORDERABLES - DEVICE Final Result Performing Organization Address [facility] de Phone [place] [facility] [place] [address] [address] [place] [address] * CT Abdomen Pelvis W Contrast (06/01/2024 1:44 PM CDT) Anatomical Region Laterality Modality Body N/A Computed Tomogra phy 06/01/2024 2:09 PM CDT Impressions 06/01/2024 2:09 PM CDT 1. ??Mosaic attenuation in the lung bases suggestive of interstitial pulmonary edema. 2. ??Diffuse hepatic steatosis. 3. ??Small hiatal hernia. 4. ??Trace left pleural effusion. 5. ??Additional chronic or incidental findings as above. Electronically signed by: Azeem Robins II, D.O. Narrative 06/01/2024 2:09 PM CDT EXAMINATION: CT ABDOMEN PELVIS W CONTRAST DATE: 06/01/2024 1:05 PM HISTORY: Sepsis. COMPARISON: 02/28/2017. TECHNIQUE: Transaxial computed tomographic images of the abdomen and pelvis were obtained after the administration of 119 mL of Optiray 350 intravenously. Multiplanar coronal and sagittal images were reformatted. FINDINGS: Similar scarring in the left lung base unchanged since 2017. ??There is cardiomegaly and mosaic attenuation in the lung bases suggestive of pulmonary edema. There is a small hiatal hernia. ??Cholecystectomy. ??Diffuse hepatic steatosis. ??The spleen, pancreas, and adrenal glands are unremarkable. ??Kidneys are unremarkable. ??No hydroureteronephrosis. Unopacified bladder is unremarkable. ??Uterus and adnexal structures are unremarkable. ??No free fluid in the pelvis. ??There is diverticulosis. ??No evidence of diverticulitis. ??The small bowel is unremarkable. ??Mild atherosclerotic calcifications in the aorta and branch vessels. ??Subcutaneous tissues are unremarkable. ??No pathologic by size criteria lymphadenopathy. ??Mild bilateral sacroiliac joint arthrosis. ??No acute fracture. ??No pathologic by size criteria lymphadenopathy. Procedure Note Azeem Robins II, DO - 06/01/2024 EXAMINATION: CT ABDOMEN PELVIS W CONTRAST DATE: 06/01/2024 1:05 PM HISTORY: Sepsis. COMPARISON: 02/28/2017. TECHNIQUE: Transaxial computed tomographic images of the abdomen and pelvis were obtained after the administration of 119 mL of Optiray 350 intravenously. Multiplanar coronal and sagittal images were reformatted. FINDINGS: Similar scarring in the left lung base unchanged since 2016. There is cardiomegaly and mosaic attenuation in [...] fracture. No pathologic by size criteria lymphadenopathy. IMPRESSION: 1. Mosaic attenuation in the lung bases suggestive of interstitial pulmonary edema. 2. Diffuse hepatic steatosis. 3. Small hiatal hernia. 4. Trace left pleural effusion. 5. Additional chronic or incidental findings as above. Electronically signed by: Azeem Robins II, D.O. Eben Pettit MD IMG CT PROCEDURES Final Result * POCT glucose (06/01/2024 11:40 AM CDT) Glucose, POC 160 70 - 199 mg/dL Blood 06/01/2024 11:4 0 AM CDT 06/01/2024 11:40 AM CDT Elly Julian MD LAB POCT ORDERABLES - DEVICE Final Result Performing Organization Address City/State/[facility] Co de Phone Number [facility] [address] [facility] Department [place] [address] * ECG 12 lead (06/01/2024 11:27 AM CDT) 06/01/2024 11:2 7 AM CDT Narrative [facility] - 06/01/2024 11:53 AM CDT Vent Rate: 102 bpm RR Interval: 584 msec HI Interval: 0 msec QRS Duration: 149 msec QT Interval: 387 msec QTC Interval: 446 msec P-R-T [place]: 0 - 115 - 66 degrees IMPRESSION: ATRIAL FIBRILLATION WITH RAPID VENTRICULAR RESPONSE WITH ABERRANT CONDUCTION OR VENTRICULAR PREMATURE COMPLEXES INDETERMINATE AXIS INTRAVENTRICULAR CONDUCTION DELAY ??[130+ ms QRS DURATION] ABNORMAL ECG NO CHANGE FROM PREVIOUS TRACING NOTED Electronically Signed By: Antonio Carlos MD Ty Mcfarland MD ECG ORDERABLES Final Resul t [facility] * POCT glucose (06/01/2024 6:50 AM CDT) Glucose, POC 121 70 - 199 mg/dL Blood 06/01/2024 6:50 AM CDT 06/01/2024 6:50 AM CDT Elly Julian MD LAB POCT ORDERABLES - DEVICE Final Result [facility] [address] [address] Department [place] [address] * eGFR (06/01/2024 4:49 AM CDT) eGFR >90 >=60 mL/min/1. 73 [...] interpretive data was last reviewed 2021. Blood 06/01/2024 4:49 AM CDT 06/01/2024 4:54 AM CDT us Mike Hollis MD LAB BLOOD ORDERABLES F inal Result [facility] [address] [address] Department [place] [address] * Differential, auto (06/01/2024 4:49 AM CDT) Neutrophil abs 4.8 1.5 - 6.5 K/cumm Imm gran abs 0.1 0.0 - 0.1 K/cumm [facility] Lymphocyte abs 1.3 0.8 - 3.3 K/cumm [facility] Monocyte abs 0.7 0.2 - 0.8 K/cumm [facility] Eosinophil abs 0.2 0.0 - 0.5 K/cumm [facility] Basophil abs 0.1 0.0 - 0.1 K/cumm [facility] Neutrophil pct 67.6 % [facility] Comment: Interpretive Data Percent cell count reference ranges are not reported, since discordance with absolute values may lead to misinterpretation of CBC data. Current Interpretive Data was last revised on 2018. Imm gran pct 0.9 % [facility] Comment: Interpretive Data Percent cell count reference ranges are not reported, since discordance with absolute values may lead to misinterpretation of CBC data. Current Interpretive Data was last revised on 2018. Lymphocyte pct 18.5 % [facility] Comment: Interpretive Data Percent cell count reference ranges are not reported, since discordance with absolute values may lead to misinterpretation of CBC data. Current Interpretive Data was last revised on 2018. Monocyte pct 9.3 % [facility] Comment: Interpretive Data Percent cell count reference ranges are not reported, since discordance with absolute values may lead to misinterpretation of CBC data. Current Interpretive Data was last revised on 2018. Eosinophil pct 2.6 % [facility] Comment: Interpretive Data Percent cell count reference ranges are not reported, since discordance with absolute values may lead to misinterpretation of CBC data. Current Interpretive Data was last revised on 2018. Basophil pct 1.1 % [facility] Comment: Interpretive Data Percent cell count reference ranges are not reported, since discordance with absolute values may lead to misinterpretation of CBC data. Current Interpretive Data was last revised on 2018. Blood 06/01/2024 4:49 AM CDT 06/01/2024 4:54 AM CDT Mike Hollis MD LAB BLOOD ORDERABLES F inal Result Performing Organization Address [place]/[facility] Co de Phone Number [facility] [address] [address] [place] [address] * Phosphorus (06/01/2024 4:49 AM CDT) Pathologist [facility] Phosphorus, pl 3.1 2.3 - 4.5 mg/dL Blood 06/01/2024 4:49 AM CDT 06/01/2024 4:54 AM CDT Elly Julian MD LAB BLOOD ORDERABLE S Final Result Performing Organization Address [facility] de Phone Number [facility] [address] [address] [place] [address] * Magnesium (06/01/2024 4:49 AM CDT) Pathologist [facility] Magnesium 2.0 1.4 - 2.5 mg/dL Blood 06/01/2024 4:49 AM CDT 06/01/2024 4:54 AM CDT Mike Hollis MD LAB BLOOD ORDERABLES F inal Result Performing Organization Address [place]/[facility] de Phone Number [facility] [address] [address] [facility] [place] [address] * (ABNORMAL) Comprehensive metabolic panel (06/01/2024 4:49 AM CDT) Sodium 131(L) 135 - 145 mmol/L Potassium, pl 3.8 3.3 - 4.9 mmol/L [facility] Chloride 93(L) 97 - 110 mmol/L [facility] CO2 29 22 - 32 mmol/L [facility] Anion gap 9 2 - 15 mmol/L [facility] BUN 13 6 - 25 mg/dL [facility] Creatinine 0.67 0.60 - 1.10 mg/dL [facility] Glucose 111 70 - 199 mg/dL [facility] Comment: [...] Calcium 8.6 8.5 - 10.3 mg/dL [facility] Bilirubin, total 0.9 0.1 - 1.2 mg/dL [facility] Protein, pl 7.2 6.5 - 8.5 g/dL [facility] Albumin 2.7(L) 3.5 - 5.0 g/dL [facility] Alk phos 330(H) 40 - 130 Units/L [facility] ALT 5(L) 7 - 45 Units/L [facility] AST 20 10 - 45 Units/L [facility] Blood 06/01/2024 4:49 AM CDT 06/01/2024 4:54 AM CDT us Mike Hollis MD LAB BLOOD ORDERABLES F inal Result [facility] [address] [address] Department [place] [address] * (ABNORMAL) CBC with auto differential (06/01/2024 4:49 AM CDT) [facility] WBC 7.0 3.8 - 9.9 K/cumm Hgb 11.5(L) 11.9 - 15.5 g/dL [facility] Hct 36.0 35.6 - 45.5 % [facility] Plt 337 150 - 400 K/cumm [facility] MPV 9.2 9.1 - 12.3 fL [facility] RBC 3.48(L) 3.90 - 5.20 M/cumm [facility] MCV 103.4(H) 81.3 - 96.4 fL [facility] MCH 33.0 27.1 - 33.3 pg [facility] MCHC 31.9(L) 32.3 - 35.7 g/dL [facility] RDW CV 13.9 11.1 - 14.9 % [facility] RDW SD 52.4(H) 35.7 - 48.1 fL [facility] NRBC abs 0.00 0.00 - 0.01 K/cumm [facility] Blood 06/01/2024 4:49 AM CDT 06/01/2024 4:54 AM CDT Mike Hollis MD LAB BLOOD ORDERABLES F inal Result Performing Organization Address City/[facility] Co de Phone Number [facility] [address] [address] Department [place] [address] * ECG 12 lead (05/31/2024 11:02 PM CDT) 05/31/2024 11:0 2 PM CDT Narrative [facility] - 06/01/2024 7:10 AM CDT Vent Rate: 83 bpm RR Interval: 716 msec HI Interval: 0 msec QRS Duration: 154 msec QT Interval: 409 msec QTC Interval: 449 msec P-R-T [place]: 0 - 123 - 189 degrees IMPRESSION: ATRIAL FIBRILLATION INTRAVENTRICULAR CONDUCTION DELAY LATERAL MYOCARDIAL INFARCTION , OF INDETERMINATE AGE Electronically Signed By: Cristino Kingsley MD, [facility] Ty Mcfarland MD ECG ORDERABLES Final Resul t Performing Organization Address City/[facility] Co de Phone Number [facility] [employer] * (ABNORMAL) POCT glucose (05/31/2024 8:36 PM CDT) Glucose, POC 270(H) 70 - 199 mg/dL Blood 05/31/2024 8:36 PM CDT 05/31/2024 8:36 PM CDT Elly Julian MD LAB POCT ORDERABLES - DEVICE Final Result Performing Organization Address [place]/[facility] de Phone Number OL[facility] CAR [address] [address] [facility] [place] [address] * (ABNORMAL) POCT glucose (05/31/2024 4:47 PM CDT) Glucose, POC 203(H) 70 - 199 mg/dL Blood 05/31/2024 4:47 PM CDT 05/31/2024 4:47 PM CDT Elly Julian MD LAB POCT ORDERABLES - DEVICE Final Result Performing Organization Address [facility] Phone Number OL[facility] CAR [address] [address] [facility] [place] [address] * ECG 12 lead (05/31/2024 12:42 PM CDT) 05/31/2024 12:4 2 PM CDT Narrative [facility] - 05/31/2024 9:55 PM CDT Vent Rate: 74 bpm RR Interval: 810 msec HI Interval: 0 msec QRS Duration: 151 msec QT Interval: 449 msec QTC Interval: 476 msec P-R-T [place]: 0 - 102 - 146 degrees IMPRESSION: VENTRICULAR PACED RHYTHM Electronically Signed By: Cristino Kingsley MD, [facility] Ty Mcfarland MD ECG ORDERABLES Final Resul t Performing Organization Address [place]/[facility] Co de Phone Number [facility] [employer] * POCT glucose (05/31/2024 10:31 AM CDT) Glucose, POC 142 70 - 199 mg/dL Blood 05/31/2024 10:3 1 AM CDT 05/31/2024 10:31 AM CDT Elly Julian MD LAB POCT ORDERABLES - DEVICE Final Result Performing Organization Address [place]/[facility] de Phone Number OL[facility] CAR [address] [address] [facility] [place] [address] * POCT glucose (05/31/2024 7:52 AM CDT) Glucose, POC 185 70 - 199 mg/dL Blood 05/31/2024 7:52 AM CDT 05/31/2024 7:52 AM CDT Elly Julian MD LAB POCT ORDERABLES - DEVICE Final Result Performing Organization Address [place]/[facility] de Phone Number OL[facility] CAR [address] [address] [facility] [employer] [place], [place] [id number] * (ABNORMAL) POCT glucose (05/31/2024 6:21 AM CDT) Glucose, POC 234(H) 70 - 199 mg/dL Blood 05/31/2024 6:21 AM CDT 05/31/2024 6:21 AM CDT Elly Julian MD LAB POCT ORDERABLES - DEVICE Final Result Performing Organization Address [place]/[facility] de Phone Number OL[facility] CAR [address] [address] [facility] [employer] [place], [place] [id number] * eGFR (05/31/2024 3:05 AM CDT) eGFR >90 >=60 mL/min/1. 73 [...] interpretive data was last reviewed 2021. Blood 05/31/2024 3:05 AM CDT 05/31/2024 4:11 AM CDT us Mike Hollis MD LAB BLOOD ORDERABLES F inal Result [facility] [address] [address] Department [place] [address] * Differential, auto (05/31/2024 3:05 AM CDT) Pathologist [facility] Neutrophil abs 5.8 1.5 - 6.5 K/cumm Imm gran abs 0.1 0.0 - 0.1 K/cumm [facility] Lymphocyte abs 1.1 0.8 - 3.3 K/cumm [facility] Monocyte abs 0.7 0.2 - 0.8 K/cumm [facility] Eosinophil abs 0.2 0.0 - 0.5 K/cumm [facility] Basophil abs 0.1 0.0 - 0.1 K/cumm [facility] Neutrophil pct 73.2 % [facility] Comment: Interpretive Data Percent cell count reference ranges are not reported, since discordance with absolute values may lead to misinterpretation of CBC data. Current Interpretive Data was last revised on 2018. Imm gran pct 1.6 % [facility] Comment: Interpretive Data Percent cell count reference ranges are not reported, since discordance with absolute values may lead to misinterpretation of CBC data. Current Interpretive Data was last revised on 2018. Lymphocyte pct 14.2 % [facility] Comment: Interpretive Data Percent cell count reference ranges are not reported, since discordance with absolute values may lead to misinterpretation of CBC data. Current Interpretive Data was last revised on 2018. Monocyte pct 8.2 % [facility] Comment: Interpretive Data Percent cell count reference ranges are not reported, since discordance with absolute values may lead to misinterpretation of CBC data. Current Interpretive Data was last revised on 2018. Eosinophil pct 2.0 % [facility] Comment: Interpretive Data Percent cell count reference ranges are not reported, since discordance with absolute values may lead to misinterpretation of CBC data. Current Interpretive Data was last revised on 2018. Basophil pct 0.8 % [facility] Comment: Interpretive Data Percent cell count reference ranges are not reported, since discordance with absolute values may lead to misinterpretation of CBC data. Current Interpretive Data was last revised on 2018. Blood 05/31/2024 3:05 AM CDT 05/31/2024 4:12 AM CDT Mike Hollis MD LAB BLOOD ORDERABLES F inal Result Performing Organization Address City/[facility]/ZIP Co de Phone Number [facility] [address] [address] [facility] [place] [address] * Phosphorus (05/31/2024 3:05 AM CDT) Phosphorus, pl 3.7 2.3 - 4.5 mg/dL Blood 05/31/2024 3:05 AM CDT 05/31/2024 4:11 AM CDT Elly Julian MD LAB BLOOD ORDERABLE S Final Result Performing Organization Address City/[facility]/ZIP Co de Phone Number [facility] [address] [address] [place] [address] * Magnesium (05/31/2024 3:05 AM CDT) Magnesium 2.1 1.4 - 2.5 mg/dL Blood 05/31/2024 3:05 AM CDT 05/31/2024 4:11 AM CDT Mike Hollis MD LAB BLOOD ORDERABLES F inal Result [facility] [address] [address] Department [place] [address] * (ABNORMAL) Comprehensive metabolic panel (05/31/2024 3:05 AM CDT) Sodium 132(L) 135 - 145 mmol/L Potassium, pl 4.8 3.3 - 4.9 mmol/L [facility] Chloride 94(L) 97 - 110 mmol/L [facility] CO2 26 22 - 32 mmol/L [facility] Anion gap 12 2 - 15 mmol/L [facility] BUN 14 6 - 25 mg/dL [facility] Creatinine 0.69 0.60 - 1.10 mg/dL [facility] Glucose 176 70 - 199 mg/dL [facility] Comment: Interpretive [...] Calcium 8.6 8.5 - 10.3 mg/dL [facility] Bilirubin, total 0.8 0.1 - 1.2 mg/dL [facility] Protein, pl 7.3 6.5 - 8.5 g/dL [facility] Albumin 2.8(L) 3.5 - 5.0 g/dL [facility] Alk phos 387(H) 40 - 130 Units/L [facility] ALT 7 7 - 45 Units/L [facility] AST 24 10 - 45 Units/L [facility] Blood 05/31/2024 3:05 AM CDT 05/31/2024 4:11 AM CDT Mike Hollis MD LAB BLOOD ORDERABLES F inal Result Performing Organization Address [place]/[facility]/ZIP Co de Phone Number OLAMIDE CAR [address] [address] [place] [address] * (ABNORMAL) CBC with auto differential (05/31/2024 3:05 AM CDT) [facility] WBC 7.9 3.8 - 9.9 K/cumm Hgb 11.9 11.9 - 15.5 g/dL [facility] Hct 37.0 35.6 - 45.5 % [facility] CH Plt 309 150 - 400 K/cumm [facility] MPV 9.7 9.1 - 12.3 fL CERN[facility] RBC 3.64(L) 3.90 - 5.20 M/cumm [facility] MCV 101.6(H) 81.3 - 96.4 fL [facility] MCH 32.7 27.1 - 33.3 pg [facility] MCHC 32.2(L) 32.3 - 35.7 g/dL [facility] RDW CV 14.5 11.1 - 14.9 % [facility] RDW SD 53.9(H) 35.7 - 48.1 fL [facility] NRBC abs 0.00 0.00 - 0.01 K/cumm [facility] Blood 05/31/2024 3:05 AM CDT 05/31/2024 4:12 AM CDT Mike Hollis MD LAB BLOOD ORDERABLES F inal Result Performing Organization Address [place]/[facility]/ZIP Co de Phone Number OLAMIDE CAR [phone] [address] [employer] [place] [address] * POCT glucose (05/31/2024 1:59 AM CDT) Glucose, POC 173 70 - 199 mg/dL Blood 05/31/2024 1:59 AM CDT 05/31/2024 1:59 AM CDT Elly Julian MD LAB POCT ORDERABLES - DEVICE Final Result Performing Organization Address [place]/[facility] Co de Phone Number OLAMIDE CAR [address] [address] [employer] [place] [address] * ECG 12 lead (05/30/2024 11:23 PM CDT) 05/30/2024 11:2 3 PM CDT Narrative [facility] - 05/31/2024 7:43 AM CDT Vent Rate: 76 bpm RR Interval: 785 msec HI Interval: 0 msec QRS Duration: 150 msec QT Interval: 471 msec QTC Interval: 501 msec P-R-T [place]: 0 - 80 - 97 degrees IMPRESSION: ATRIAL FIBRILLATION WITH ABERRANT CONDUCTION OR VENTRICULAR PREMATURE COMPLEXES INTRAVENTRICULAR CONDUCTION DELAY ??[130+ ms QRS DURATION] ABNORMAL ECG Electronically Signed By: Dr. Shiloh Muhammad [facility] Ty Mcfarland MD ECG ORDERABLES Final Resul t Performing Organization Address [place]/[facility] de Phone Number [facility] * (ABNORMAL) POCT glucose (05/30/2024 8:52 PM CDT) Glucose, POC 296(H) 70 - 199 mg/dL Blood 05/30/2024 8:52 PM CDT 05/30/2024 8:52 PM CDT Elly Julian MD LAB POCT ORDERABLES - DEVICE Final Result Performing Organization Address [place]/[facility] Co de Phone Number OLAMIDE CAR [phone] [address] [employer] [place] [address] * POCT glucose (05/30/2024 5:20 PM CDT) Glucose, POC 179 70 - 199 mg/dL Blood 05/30/2024 5:20 PM CDT 05/30/2024 5:20 PM CDT Elly Julian MD LAB POCT ORDERABLES - DEVICE Final Result Performing Organization Address [place]/[facility] Co de Phone Number OLAMIDE CAR [phone] [address] [place] [address] * (ABNORMAL) POCT glucose (05/30/2024 12:03 PM CDT) [facility] Glucose, POC 206(H) 70 - 199 mg/dL Blood 05/30/2024 12:0 3 PM CDT 05/30/2024 12:03 PM CDT Elly Julian MD LAB POCT ORDERABLES - DEVICE Final Result Performing Organization Address [facility] Phone Number OLAMIDE CAR [phone] [address] [place] [address] * ECG 12 lead (05/30/2024 11:55 AM CDT) 05/30/2024 11:5 5 AM CDT Narrative [facility] - 05/30/2024 6:40 PM CDT Vent Rate: 109 bpm RR Interval: 548 msec HI Interval: 0 msec QRS Duration: 149 msec QT Interval: 398 msec QTC Interval: 462 msec P-R-T [place]: 0 - 96 - 89 degrees IMPRESSION: ATRIAL FIBRILLATION WITH RAPID VENTRICULAR RESPONSE BORDERLINE RIGHT AXIS DEVIATION ??[QRS AXIS > 90] INTRAVENTRICULAR CONDUCTION DELAY ??[130+ ms QRS DURATION] ABNORMAL ECG Unchanged compared to an EKG done earlier on May 30, [address]: Dr[address] Shiloh Muhammad [facility] Ty Mcfarland MD ECG ORDERABLES Final Resul t Performing Organization Address [place]/[facility] Co de Phone Number [facility] * CT Chest WO Contrast (05/30/2024 11:22 AM CDT) Anatomical Region Laterality Modality Body N/A Computed Tomogra phy 05/30/2024 12:1 4 PM CDT Impressions 05/30/2024 12:14 PM CDT 1. Redemonstrated curvilinear radiopaque density extending from the proximal right lower lobe pulmonary artery into a subsegmental lateral basilar branch favors a catheter or wire fragment. 2. Findings most suggestive of heart failure with cardiomegaly, small volume pericardial effusion, and small bilateral pleural effusions and mild pulmonary edema. Electronically signed by: Abilio Post M.D. Narrative 05/30/2024 12:14 PM CDT EXAMINATION: ??Computed tomography of the chest without intravenous contrast HISTORY: Right lower lobe pulmonary artery for and body TECHNIQUE: ??Transaxial computed tomographic images of the chest were obtained without intravenous contrast according to the standard protocol. COMPARISON: 05/30/[address] angiography. FINDINGS: ?? Bilateral small pleural effusions and atelectasis. There [...] changes of cholecystectomy. No suspicious osseous lesions. Procedure Note Abilio Post MD - 05/30/2024 EXAMINATION: Computed tomography of the chest without [...] changes of cholecystectomy. No suspicious osseous lesions. IMPRESSION: 1. Redemonstrated curvilinear radiopaque density extending from the proximal right lower lobe pulmonary artery into a subsegmental lateral basilar branch favors a catheter or wire fragment. 2. Findings most suggestive of heart failure with cardiomegaly, small volume pericardial effusion, and small bilateral pleural effusions and mild pulmonary edema. Electronically signed by: Abilio Post M.D. Elly Julian MD IMG CT PROCEDURES F inal Result * (ABNORMAL) CBC without differential (05/30/2024 9:35 AM CDT) Pathologist [facility] WBC 10.6(H) 3.8 - 9.9 K/cumm Hgb 11.7(L) 11.9 - 15.5 g/dL [facility] Hct 36.2 35.6 - 45.5 % [facility] Plt 309 150 - 400 K/cumm [facility] MPV 9.1 9.1 - 12.3 fL [facility] RBC 3.58(L) 3.90 - 5.20 M/cumm [facility] MCV 101.1(H) 81.3 - 96.4 fL [facility] MCH 32.7 27.1 - 33.3 pg [facility] MCHC 32.3 32.3 - 35.7 g/dL [facility] RDW CV 14.5 11.1 - 14.9 % [facility] RDW SD 53.8(H) 35.7 - 48.1 fL [facility] NRBC abs 0.00 0.00 - 0.01 K/cumm [facility] Blood 05/30/2024 9:35 AM CDT 05/30/2024 9:41 AM CDT us Ty Mcfarland MD LAB BLOOD ORDERABLES Final Result OLAMIDE [id number] [address] Department [place] [address] * ECG 12 lead (05/30/2024 8:34 AM CDT) 05/30/2024 8:34 AM CDT Narrative [facility] - 05/30/2024 8:49 AM CDT Vent Rate: 86 bpm RR Interval: 697 msec HI Interval: 0 msec QRS Duration: 145 msec QT Interval: 438 msec QTC Interval: 481 msec P-R-T [place]: 0 - 101 - 95 degrees IMPRESSION: ATRIAL FIBRILLATION RIGHT AXIS DEVIATION ??[QRS AXIS > 100] INTRAVENTRICULAR CONDUCTION DELAY ??[130+ ms QRS DURATION] ABNORMAL ECG Unchanged compared to 05/29/20[address]ically [address] By: Dr. Shiloh Muhammad [facility] us Ty Mcfarland MD ECG ORDERABLES Final Resul t [facility] * TRANSTHORACIC ECHO (TTE) COMPLETE W DOPPLER/CF WO CONTRAST (05/30/2024 8:25 AM CDT) Anatomical Region Laterality Modality Ultrasound 05/30/2024 7:47 AM CDT Narrative 05/30/2024 9:18 [place] [address] Echocardiogram Report Patient Name: LEI RODRIGUEZ V : 1960 Study Date: 05/30/2024 7:47:08 AM Gender: F Tech: Location: [id number] Ref Provider: TY MCFARLAND ?Height(Cm): 165 BSA: 2.43 Weight(Kg): 128.7 Heart Rate: 94 BP: 135/84 Quality: Good Order Provider: TY MCFARLAND PROCEDURES: Echocardiographic Report: Transthoracic echocardiogram with complete 2D, M-Mode, color Doppler examination and contrast. INDICATIONS: Endocarditis. Measurements: 2D/M Mode ?Doppler Measurement ?Value ?Normal Range ? Measurement ? Value ?Normal Range EF Teich 2D ?21.6 ? [ 54.0 - 74.0 ] percent ?MARIANA Vmax ?3.09 ? cm2 EF Mod 4C ?33.1 ? percent ?AV Mean PG ?3 ?mmHg LVIDd 2D ? 5.71 ? [ 3.80 - 5.20 ] cm ? AV Peak Chadd ? 1.08 ? [ 1.00 - 1.70 ] m/s LVIDs 2D ? 5.14 ? [ 2.20 - 3.50 ] cm ? AV VTI ?19.35 ?cm LVPWd 2D ? 0.98 ? [ 0.60 - 0.90 ] cm ? LVOT Diam ? 2.29 ? cm IVSd 2D ?0.73 ? [ 0.60 - 0.90 ] cm ? LVOT Peak Chadd ? 0.81 ? [ 0.70 - 1.10 ] m/s LA Dimension MM ?5.23 ? [ 2.70 - 3.80 ] cm ? LVOT VTI ?16.72 ?cm AoR Diam MM ?3.13 ? [ 2.70 - 3.70 ] cm ? MV E Peak Chdad ? 1.00 ? [ 0.60 - 1.30 ] m/s LA Volume Index ?22.99 ?[ 16.00 - 34.00 ] cc/m2 ?MV A Peak Chadd ? 0.31 ? [ 1.00 - 1.20 ] m/s ACS MM ? 2.14 ? cm ? MV Mean PG ?2 ?mmHg MV PHT ? 54 ? [ 20 - 100 ] msec MVA PHT ?4.11 ? cm2 MV Decel Time ?169 ?[ 104 - 258 ] msec PV Peak Chadd ?1.14 ? [ 0.40 - 0.80 ] m/s TR Peak Chadd ?2.94 ? [ 1.00 - 2.80 ] m/s TR Peak PG ? 35 ? mmHg RVSP ? 38.00 ?[ 10.00 - 36.00 ] mmHg E` ? 0.05 ? m/s E/E` ? 19.29 Measurement ?Value ?Normal Range ? Measurement ? Value ?Normal Range 2D/M Mode ?Doppler - FINDINGS: Atrial Septum: Normal atrial septum. [...] Trivial pericardial effusion. Electronically Signed By: Coleen Kwok DO, FACC, FASE, FASNC 2024-05-30 09:18:05 CDT CC: CC: CC: Procedure Note Coleen Kwok DO - 05/30/2024 [place] [address] Echocardiogram Report Patient Name: LEI RODRIGUEZ V : 1960 Study Date: 05/30/2024 7:47:08 AM Gender: F Tech: GUILHERME Location: [id number] Ref Provider: TY MCFARLAND Height(Cm): 165 BSA: 2.43 Weight(Kg): 128.7 Heart Rate: 94 BP: 135/84 Quality: Good Order Provider: TY MCFARLAND PROCEDURES: Echocardiographic Report: Transthoracic echocardiogram with complete 2D, M-Mode, color Dopplerexamination and contrast. INDICATIONS: Endocarditis. Measurements: 2D/M ModeDoppler Measurement Value Normal Range MeasurementValue Normal Range EF Teich 2D 21.6 [ 54.0 - 74.0 ] percent MARIANA Vmax3.09 cm2 EF Mod 4C 33.1 percent AV Mean PG3 mmHg LVIDd 2D 5.71 [ 3.80 - 5.20 ] cm AV Peak Vel1.08 [ 1.00 - 1.70 ] m/s LVIDs 2D 5.14 [ 2.20 - 3.50 ] cm AV VTI19.35 cm LVPWd 2D 0.98 [ 0.60 - 0.90 ] cm LVOT Diam2.29 cm IVSd 2D 0.73 [ 0.60 - 0.90 ] cm LVOT PeakVel 0.81 [ 0.70 - 1.10 ] m/s LA Dimension MM 5.23 [ 2.70 - 3.80 ] cm LVOT VTI16.72 cm AoR Diam MM 3.13 [ 2.70 - 3.70 ] cm MV E PeakVel 1.00 [ 0.60 - 1.30 ] m/s LA Volume Index 22.99 [ 16.00 - 34.00 ] cc/m2 MV A PeakVel 0.31 [ 1.00 - 1.20 ] m/s ACS MM 2.14 cm MV Mean PG2 mmHg MV PHT 54 [ 20 - 100 ] msec MVA PHT 4.11 cm2 MV Decel Time 169 [ 104 - 258 ] msec PV Peak Cahdd 1.14 [ 0.40 - 0.80 ] m/s TR Peak Chadd 2.94 [ 1.00 - 2.80 ] m/s TR Peak PG 35 mmHg RVSP 38.00 [ 10.00 - 36.00 ] mmHg E` 0.05 m/s E/E` 19.29 Measurement Value Normal Range MeasurementValue Normal Range 2D/M ModeDoppler - FINDINGS: Atrial Septum: Normal atrial septum. Left Ventricle: Mild enlargement of left ventricle cavity. Left ventricle not wellvisualized. Optison contrast agent used to visually enhance endocardial wall motion andcontractility. Normal left ventricular wall thickness. Paradoxical septal motion consistent withIVCD or bundle branch block. Ejection fraction is measured at 30 %. Left Atrium: The left atrium is normal in size. Right Ventricle: Normal right ventricular systolic function. Pacemaker noted. Right Atrium: There is mild enlargement of right atrium. Linear artifact in right atriumsuggestive of catheter(s), pacemaker lead(s), or ICD lead(s). Aortic Valve: Aortic cusps appear mildly sclerotic. No evidence of hemodynamicallysignificant aortic stenosis by Doppler. No aortic regurgitation. Mitral Valve: Normal structure of the mitral valve. Mild to moderate mitral valveregurgitation. The regurgitation jet is eccentrically directed which may underestimate theseverity of mitral regurgitation. Pulmonic Valve: Normal structure of the pulmonic valve. Mild pulmonic regurgitation. Tricuspid Valve: Tricuspid valve not well visualized. Estimated peak RVSP is 42 mmHg. Mildto moderate tricuspid regurgitation. Pericardium: Trivial pericardial effusion. Aorta: Mild aortic root calcification. IVC: Dilated IVC without respiratory collapse consistent with elevated rightatrial pressure (>15 mmHg). Pulmonary Artery: Mild enlargement of the pulmonary artery. CONCLUSIONS: Technically difficult study with limited views. Mild enlargement of left ventricle cavity. Left ventricle not wellvisualized. Optison contrast agent used to visually enhance endocardial wall motion andcontractility. Normal left ventricular wall thickness. Paradoxical septal motion consistent withIVCD or bundle branch block. Ejection fraction is measured at 30 %. Normal right ventricular systolic function. Pacemaker noted. Normal structure of the mitral valve. Mild to moderate mitral valveregurgitation. The regurgitation jet is eccentrically directed which may underestimate theseverity of mitral regurgitation. Tricuspid valve not well visualized. Estimated peak RVSP is 42 mmHg. Mildto moderate tricuspid regurgitation. Trivial pericardial effusion. Electronically Signed By: Coleen Kwok DO, RUBIO, MELISSA CANDELARIO 2024-05-30 09:18:05 CDT CC: CC: CC: Ty Mcfarland MD CV ECHO PROCEDURES Final Re sult * (ABNORMAL) Troponin T high-sensitivity 6-hour (05/30/2024 6:20 AM CDT) Trop T hs 27(H) <=14 ng/L Comment: Interpretive Data For further hscTnT resources including the diagnostic algorithm and an aid in interpretation, copy and paste this link: https://nrl.testcatalog.org/show/hsTrop Current Interpretive Data last revised 2020. Trop T hs delta See Comment ng/L OLAMIDE CAR Comment:Inappropriate collec tion time to report a delta. Trop T hs pct delta See Comment % [facility] Comment:Inappropriate collec tion time to report a delta. Trop T hs interp See Comment OLAMIDE CAR Comment:Inappropriate collec tion time to report a delta. Blood 05/30/2024 6:20 AM CDT 05/30/2024 6:26 AM CDT Mike Hollis MD LAB BLOOD ORDERABLES F inal Result OLAMIDE [id number] [address] Department [place] [address] * eGFR (05/30/2024 4:28 AM CDT) eGFR >90 >=60 mL/min/1. 73 [...] interpretive data was last reviewed 2021. Blood 05/30/2024 4:28 AM CDT 05/30/2024 6:00 AM CDT us Mike Hollis MD LAB BLOOD ORDERABLES F inal Result OLAMIDE [address] [address] Department [place] [address] * (ABNORMAL) Differential, auto (05/30/2024 4:28 AM CDT) Neutrophil abs 8.0(H) 1.5 - 6.5 K/cumm Imm gran abs 0.1 0.0 - 0.1 K/cumm [facility] Lymphocyte abs 1.4 0.8 - 3.3 K/cumm [facility] Monocyte abs 0.8 0.2 - 0.8 K/cumm [facility] Eosinophil abs 0.1 0.0 - 0.5 K/cumm [facility] Basophil abs 0.1 0.0 - 0.1 K/cumm [facility] Neutrophil pct 76.0 % [facility] Comment: Interpretive Data Percent cell count reference ranges are not reported, since discordance with absolute values may lead to misinterpretation of CBC data. Current Interpretive Data was last revised on 2018. Imm gran pct 1.3 % [facility] Comment: Interpretive Data Percent cell count reference ranges are not reported, since discordance with absolute values may lead to misinterpretation of CBC data. Current Interpretive Data was last revised on 2018. Lymphocyte pct 13.4 % [facility] Comment: Interpretive Data Percent cell count reference ranges are not reported, since discordance with absolute values may lead to misinterpretation of CBC data. Current Interpretive Data was last revised on 2018. Monocyte pct 7.8 % [facility] Comment: Interpretive Data Percent cell count reference ranges are not reported, since discordance with absolute values may lead to misinterpretation of CBC data. Current Interpretive Data was last revised on 2018. Eosinophil pct 0.9 % [facility] Comment: Interpretive Data Percent cell count reference ranges are not reported, since discordance with absolute values may lead to misinterpretation of CBC data. Current Interpretive Data was last revised on 2018. Basophil pct 0.6 % [facility] Comment: Interpretive Data Percent cell count reference ranges are not reported, since discordance with absolute values may lead to misinterpretation of CBC data. Current Interpretive Data was last revised on 2018. Blood 05/30/2024 4:28 AM CDT 05/30/2024 6:00 AM CDT Mike Hollis MD LAB BLOOD ORDERABLES F inal Result Performing Organization Address [place]/[facility] Co de Phone Number OLAMIDE CAR [address] [address] [place] [address] * (ABNORMAL) Troponin T high-sensitivity 4-hour (05/30/2024 4:28 AM CDT) Trop T hs 26(H) <=14 ng/L Comment: Interpretive Data For further hscTnT resources including the diagnostic algorithm and an aid in interpretation, copy and paste this link: https://nrl.testcatalog.org/show/hsTrop Current Interpretive Data last revised 2020. Trop T hs delta See Comment ng/L OLAMIDE Comment:Inappropriate collec tion time to report a delta. Trop T hs pct delta See Comment % OLAMIDE Comment:Inappropriate collec tion time to report a delta. Trop T hs interp See Comment OLAMIDE Comment:Inappropriate collec tion time to report a delta. Blood 05/30/2024 4:28 AM CDT 05/30/2024 6:01 AM CDT Mike Hollis MD LAB BLOOD ORDERABLES F inal Result Performing Organization Address [place]/[facility] Co de Phone Number OLAMIDE JOCELINE [address] [address] Department [employer] [place], [place] [id number] * Blood culture Blood (05/30/2024 4:28 AM CDT) Report Final Report: No growth Comment:Testing performed by : [facility], [address] [place]., [address] Blood 05/30/2024 4:28 AM CDT 05/30/2024 9:52 AM CDT Tal QUIÑONEZ CH - 06/03/2024 12:00 PM CDT From a different site than #1. [...] organism identification may be performed using the [employer] Gram-Positive Blood Culture Assay. This assay detects microbial DNA in positive blood culture broth via hybridization of target DNA to capture oligonucleotides on a microarray. This assay has been cleared by the [place] Food and Drug Administration and its performance characteristics have been verified by the [facility]. 5. ?For questions about this culture, contact the Microbiology Laboratory at [phone]. Interpretive data was last revised on 2020. Mike Hollis MD LAB MICROBIOLOGY - GEN ERAL ORDERABLES Final Result OLAMIDE CAR [address] [address] Department [place] [address] * Blood culture Blood (05/30/2024 4:28 AM CDT) Report Final Report: No growth Comment:Testing performed by : [facility], [address] [facility], [place]., [address] Blood 05/30/2024 4:28 AM CDT 05/30/2024 9:52 AM CDT Narrative OLAMIDE CAR - 06/03/2024 12:00 PM CDT Collection->Peripheral 1. ?Blood cultures are incubated [...] organism identification may be performed using the [employer] Gram-Positive Blood Culture Assay. This assay detects microbial DNA in positive blood culture broth via hybridization of target DNA to capture oligonucleotides on a microarray. This assay has been cleared by the [place] Food and Drug Administration and its performance characteristics have been verified by the [facility]. 5. ?For questions about this culture, contact the Microbiology Laboratory at [phone]. Interpretive data was last revised on 2020. Mike Hollis MD LAB MICROBIOLOGY - GEN ERAL ORDERABLES Final Result Performing Organization Address City/[facility]/ZIP Co de Phone Number ZAKIYAIZZY [address] [address] Department [place] [address] * Magnesium (05/30/2024 4:28 AM CDT) Magnesium 2.1 1.4 - 2.5 mg/dL Blood 05/30/2024 4:28 AM CDT 05/30/2024 6:00 AM CDT Mike Hollis MD LAB BLOOD ORDERABLES F inal Result Performing Organization Address [place]/[facility]/ZIP Co de Phone Number OLAMIDE CAR [address] [address] Department [place] [address] * (ABNORMAL) Comprehensive metabolic panel (05/30/2024 4:28 AM CDT) Sodium 132(L) 135 - 145 mmol/L Potassium, pl 4.6 3.3 - 4.9 mmol/L [facility] Chloride 95(L) 97 - 110 mmol/L [facility] CO2 27 22 - 32 mmol/L [facility] Anion gap 10 2 - 15 mmol/L [facility] BUN 10 6 - 25 mg/dL [facility] Creatinine 0.74 0.60 - 1.10 mg/dL [facility] Glucose 113 70 - 199 mg/dL [facility] Comment: [...] interpretive data was last revised 2022. Calcium 8.4(L) 8.5 - 10.3 mg/dL [facility] Bilirubin, total 1.0 0.1 - 1.2 mg/dL [facility] Protein, pl 6.7 6.5 - 8.5 g/dL [facility] Albumin 2.8(L) 3.5 - 5.0 g/dL [facility] Alk phos 386(H) 40 - 130 Units/L [facility] ALT 12 7 - 45 Units/L [facility] AST 32 10 - 45 Units/L [facility] Blood 05/30/2024 4:28 AM CDT 05/30/2024 6:00 AM CDT us Mike Hollis MD LAB BLOOD ORDERABLES F inal Result OLAMIDE CAR [address] [address] Department [place] [address] * (ABNORMAL) CBC with auto differential (05/30/2024 4:28 AM CDT) WBC 10.5(H) 3.8 - 9.9 K/cumm Hgb 11.3(L) 11.9 - 15.5 g/dL [facility] Hct 35.8 35.6 - 45.5 % [facility] Plt 283 150 - 400 K/cumm [facility] CH MPV 9.4 9.1 - 12.3 fL [facility] RBC 3.53(L) 3.90 - 5.20 M/cumm [facility] MCV 101.4(H) 81.3 - 96.4 fL [facility] MCH 32.0 27.1 - 33.3 pg C[facility]ER MCHC 31.6(L) 32.3 - 35.7 g/dL [facility] RDW CV 14.6 11.1 - 14.9 % [facility] RDW SD 54.4(H) 35.7 - 48.1 fL [facility] NRBC abs 0.00 0.00 - 0.01 K/cumm [facility] Blood 05/30/2024 4:28 AM CDT 05/30/2024 6:00 AM CDT us Mike Hollis MD LAB BLOOD ORDERABLES F inal Result [facility] [id number] [address] Department [place] [address] * CT Chest PE (CTA) W Contrast (05/30/2024 3:43 AM CDT) Anatomical Region Laterality Modality Body N/A Computed Tomogra phy 05/30/2024 3:35 AM CDT Impressions 05/30/2024 8:12 AM CDT 1. ?? Motion degraded evaluation of the pulmonary arteries. Some of the segmental branches are not well assessed for exclusion of subtle emboli. Otherwise centrally no pulmonary artery emboli. 2. ?? Pulmonary arterial hypertension and dislodged the catheter visualized in the distal right pulmonary artery and right lower lobe lobar and segmental pulmonary artery branch. 3. ?? CHF, pulmonary edema and small bilateral pleural effusions. 4. ?? Possible congestive cirrhosis. Correlate with LFTs. 5. ?? Additional findings as described above. Stat report by [facility] . Electronically signed by: Andrea Abernathy M.D. Narrative 05/30/2024 8:12 AM CDT EXAMINATION: CT CHEST PE (CTA) W CONTRAST HISTORY: Chest pain ORDER DATE: 05/30/2024 3:20 AM TECHNIQUE: ?? CT chest images were acquired using a chest angiographic protocol with 3-D imaging optimized for PE ??is obtained [id number] mL of Optiray 350 IV. 2D Coronal and sagittal reformats were obtained. ?? 3-D rendering (not supervised by radiologist) MIP [...] right lower lobe pulmonary artery branch, image [id number]/coronal series 9. Aorta: Unremarkable. No aortic aneurysm. No aortic dissection. Lungs: Diffuse multilobar septal thickening, peribronchial thickening and increased ground-glass alveolar airspace opacity of the lung parenchyma [...] Bones/joints: No acute fracture. Soft tissues: Unremarkable. Procedure Note Andrea Abernathy MD - 05/30/2024 EXAMINATION: CT CHEST PE (CTA) W CONTRAST HISTORY: Chest pain ORDER DATE: 05/30/2024 3:20 AM TECHNIQUE: CT chest images were acquired using a chest angiographic protocol with 3-D imaging optimized for PE is obtained [id number] mL of Optiray 350 IV. 2D Coronal [...] right lower lobe pulmonary artery branch, image [id number]/coronal series 9. Aorta: Unremarkable. No aortic aneurysm. No aortic dissection. Lungs: Diffuse multilobar septal thickening, peribronchial thickening and increased ground-glass alveolar airspace opacity of the lung parenchyma [...] Bones/joints: No acute fracture. Soft tissues: Unremarkable. IMPRESSION: 1. Motion degraded evaluation of the pulmonary [...] findings as described above. Stat report by [facility] . Electronically signed by: Andrea Abernathy M.D. Mike Hollis MD IMG CT PROCEDURES Ayanna l Result * POCT glucose (05/30/2024 12:50 AM CDT) Glucose, POC 129 70 - 199 mg/dL Blood 05/30/2024 12:5 0 AM CDT 05/30/2024 12:50 AM CDT Nba Tubbs MD LAB POCT ORDERABLES - DEVICE Final Result [facility] [id number] Department [place] [address] * CT Cervical Spine WO Contrast (05/29/2024 11:18 PM CDT) Anatomical Region Laterality Modality Spine N/A Computed Tomogra phy 05/29/2024 11:0 7 PM CDT Impressions 05/30/2024 7:49 AM CDT No acute cervical spine injury. Stat report by [facility] Stat report by [facility] Electronically signed by: Andrea Abernathy M.D. Narrative 05/30/2024 7:49 AM CDT EXAMINATION: CT CERVICAL SPINE WO CONTRAST HISTORY: Neck pain ORDER DATE: 05/29/2024 10:55 PM TECHNIQUE: ?? Multiple helical axial images of the cervical spine were obtained without the administration of contrast. Coronal and sagittal reformatted images were included. FINDINGS: Bones: No acute fracture. ??Chronic mild C6 loss of vertebral body height present. ??Normal alignment. ??Mild right C3-C4 facet arthrosis. ??C3-C4 disc narrowing and partially calcified bulging disc contributing to hpyf-rs-opzbeapl central spinal stenosis. ??Disc osteophyte complex also contributing to ikyk-ii-frtlurpr central spinal stenosis at C4-C5 level. ??No significant disc bulge or herniation. No severe spinal canal stenosis. ??Uncovertebral joint hypertrophy contributing to multilevel bilateral neural foraminal stenosis. ?? Lungs: Lung apices are normal. Soft tissues: Unremarkable. Procedure Note Andrea Abernathy MD - 05/30/2024 EXAMINATION: CT CERVICAL SPINE WO CONTRAST HISTORY: [...] and partially calcified bulging disc contributing to isba-oo-iwrcgaul central spinal stenosis. Disc osteophyte complex also contributing to wpnx-sq-wjfozora central spinal stenosis at C4-C5 level. No significant disc bulge or herniation. No severe spinal canal stenosis. Uncovertebral joint hypertrophy contributing to multilevel bilateral neural foraminal stenosis. Lungs: Lung apices are normal. Soft tissues: Unremarkable. IMPRESSION: No acute cervical spine injury. Stat report by [facility] Stat report by [facility] Electronically signed by: Andrea Abernathy M.D. Mike Hollis MD IMG CT PROCEDURES Ayanna l Result * CT Head WO Contrast (05/29/2024 11:18 PM CDT) Anatomical Region Laterality Modality Head and Neck N/A Computed Tomogra phy 05/29/2024 11:0 7 PM CDT Impressions 05/30/2024 7:45 AM CDT No acute intracranial findings. Stat report by [facility] Electronically signed by: Andrea Abernathy M.D. Narrative 05/30/2024 7:45 AM CDT EXAMINATION: CT head without contrast HISTORY: Headache, new or worsening (Age >= 50y) TECHNIQUE: Noncontrast CT of the brain was performed with images acquired from skull base to vertex. COMPARISON: None available. FINDINGS: Brain: ??Global volume loss and cortical dilatation present. ??No hemorrhage. ?? Mild chronic microvascular ischemic changes of the periventricular white matter. No mass effect. No edema. ?? Cerebral ventricles: No ventriculomegaly. Paranasal sinuses: Visualized sinuses are unremarkable. No fluid levels. Mastoid air cells: Visualized mastoid air cells are well aerated. Bones: Unremarkable. No acute fracture. Soft tissues: Unremarkable. Procedure Note Andrea Abernathy MD - 05/30/2024 EXAMINATION: CT head without contrast HISTORY: Headache, [...] Unremarkable. No acute fracture. Soft tissues: Unremarkable. IMPRESSION: No acute intracranial findings. Stat report by [facility] Electronically signed by: Andrea Abernathy M.D. Mike Hollis MD IMG CT PROCEDURES Ayanna l Result * XR Chest 1 View (05/29/2024 11:15 PM CDT) Anatomical Region Laterality Modality Body, Chest N/A Computed Radiogr aphy 05/30/2024 9:11 AM CDT Impressions 05/30/2024 9:11 AM CDT Single view chest exam similar for interpretation with comparison to prior from 03/07/2017. Correlation made with CT from the same day There are diffuse interstitial and airspace opacities [...] in the medical record on 05/30/2024 at [facility]. Electronically signed by: Abilio Post M.D. Narrative 05/30/2024 9:11 AM CDT EXAMINATION: XR CHEST 1 VIEW History: Shortness of breath Procedure Note Abilio Post MD - 05/30/2024 EXAMINATION: XR CHEST 1 VIEW History: Shortness of breath IMPRESSION: Single view chest exam similar for interpretation with comparison to prior from 03/07/2017. Correlation made with CT from the same day There are diffuse interstitial and airspace opacities [...] 457. Electronically signed by: Abilio Post M.D. Mike Hollis MD IMG XR PROCEDURES Ayanna l Result * (ABNORMAL) Troponin T high-sensitivity series (baseline, 2hr, 4hr, 6hr) (05/29/2024 11:00 PM CDT) Pathologist [facility] Trop T hs 24(H) <=14 ng/L Comment: Slight hemolysis may result in decreased troponin measurement. Consider recollection. Interpretive Data For further hscTnT resources including the diagnostic algorithm and an aid in interpretation, copy and paste this link: [email or web address].testcatalog.org/[email or web address] Current Interpretive Data last revised 2020. Blood 05/29/2024 11:0 0 PM CDT 05/30/2024 2:07 AM CDT Mike Hollis MD LAB BLOOD ORDERABLES F inal Result [facility] [id number] [facility] Department [place] [address] * (ABNORMAL) Pro B-type natriuretic peptide (05/29/2024 11:00 PM CDT) NT-proBNP 6,018(H) <=300 pg/mL Comment: Interpretive Comments: A. Dyspnea [...] Heart J. 2006:27:330-337. 2. Chris RW, Joe QUIROS. J. AM Dave Cardiol: Cardiovasc Imag. 2009;2: 216- 225. Interpretive Data Last Revised Date: 2018. Blood 05/29/2024 11:0 0 PM CDT 05/30/2024 2:07 AM CDT us Mike Hollis MD LAB BLOOD ORDERABLES F inal Result [facility] [id number] Department [place] [address] * eGFR (05/29/2024 10:53 PM CDT) eGFR >90 >=60 mL/min/1. 73 [...] interpretive data was last reviewed 2021. Blood 05/29/2024 10:5 3 PM CDT 05/29/2024 11:09 PM CDT Mike Hollis MD LAB BLOOD ORDERABLES F inal Result [facility] [id number] Department [place] [address] * Differential, auto (05/29/2024 10:53 PM CDT) Neutrophil abs 6.0 1.5 - 6.5 K/cumm Imm gran abs 0.1 0.0 - 0.1 K/cumm [facility] Lymphocyte abs 1.6 0.8 - 3.3 K/cumm [facility] Monocyte abs 0.8 0.2 - 0.8 K/cumm [facility] Eosinophil abs 0.1 0.0 - 0.5 K/cumm [facility] Basophil abs 0.1 0.0 - 0.1 K/cumm [facility] Neutrophil pct 69.3 % [facility] Comment: Interpretive Data Percent cell count reference ranges are not reported, since discordance with absolute values may lead to misinterpretation of CBC data. Current Interpretive Data was last revised on 2018. Imm gran pct 1.4 % [facility] Comment: Interpretive Data Percent cell count reference ranges are not reported, since discordance with absolute values may lead to misinterpretation of CBC data. Current Interpretive Data was last revised on 2018. Lymphocyte pct 18.2 % [facility] Comment: Interpretive Data Percent cell count reference ranges are not reported, since discordance with absolute values may lead to misinterpretation of CBC data. Current Interpretive Data was last revised on 2018. Monocyte pct 8.7 % [facility] Comment: Interpretive Data Percent cell count reference ranges are not reported, since discordance with absolute values may lead to misinterpretation of CBC data. Current Interpretive Data was last revised on 2018. Eosinophil pct 1.6 % [facility] Comment: Interpretive Data Percent cell count reference ranges are not reported, since discordance with absolute values may lead to misinterpretation of CBC data. Current Interpretive Data was last revised on 2018. Basophil pct 0.8 % [facility] Comment: Interpretive Data Percent cell count reference ranges are not reported, since discordance with absolute values may lead to misinterpretation of CBC data. Current Interpretive Data was last revised on 2018. Blood 05/29/2024 10:5 3 PM CDT 05/29/2024 11:09 PM CDT us Mike Hollis MD LAB BLOOD ORDERABLES F inal Result [facility] [id number] Department [place] [address] * (ABNORMAL) Hepatic function panel (05/29/2024 10:53 PM CDT) Bilirubin, total 0.9 0.1 - 1.2 mg/dL Bilirubin, direct 0.2 0.1 - 0.3 mg/dL [facility] Comment:Hemolysis present. R esults may be affected. Protein, pl 6.9 6.5 - 8.5 g/dL [facility] Albumin 2.7(L) 3.5 - 5.0 g/dL [facility] Alk phos 398(H) 40 - 130 Units/L [facility] ALT 14 7 - 45 Units/L [facility] Comment:Hemolysis present. R esults may be affected. AST 51(H) 10 - 45 Units/L [facility] Comment:Hemolysis present. R esults may be affected. Blood 05/29/2024 10:5 3 PM CDT 05/29/2024 11:09 PM CDT Narrative [facility] - 05/29/2024 11:36 PM CDT Baseline prior to rivaroxaban initiation Mike Hollis MD LAB BLOOD ORDERABLES F inal Result Performing Organization Address [place] de Phone Number [facility] [id number] Department [place] [address] * (ABNORMAL) Protime-INR (05/29/2024 10:53 PM CDT) PT 15.4(H) 9.7 - 13.0 sec INR 1.42(H) 0.90 - 1.20 [facility] Comment: Interpretive data Oral anticoagulant therapeutic ranges: Venous thromboembolism prophylaxis or treatment: 2.0-3.0 CARDIOLOGY Standard range: 2.0-3.0 High-intensity range: 2.5-3.5 Refer to indication-specific guidelines for appropriate target ranges for prosthetic heart valve replacement. Current interpretive data was last revised on 2019. Blood 05/29/2024 10:5 3 PM CDT 05/29/2024 11:09 PM CDT Narrative [facility] - 05/29/2024 11:29 PM CDT Baseline prior to rivaroxaban initiation Mike Hollis MD LAB BLOOD ORDERABLES F inal Result Performing Organization Address [place] de Phone Number [facility] [id number] [facility] [place] [address] * Lactate (05/29/2024 10:53 PM CDT) Lactate 1.5 0.7 - 2.0 mmol/L Blood 05/29/2024 10:5 3 PM CDT 05/29/2024 11:09 PM CDT Mike Hollis MD LAB BLOOD ORDERABLES F inal Result Performing Organization Address [place] de Phone Number [facility] [phone] [facility] [place] [address] * aPTT (05/29/2024 10:53 PM CDT) aPTT 28 28 - 38 sec Comment: Interpretive Data Heparin therapeutic range: 66.0 - 100.0 seconds. Range based on correlation with therapeutic heparin activity range of 0.3 - 0.7 Units/mL. Current interpretive data was last revised on 2023. Blood 05/29/2024 10:5 3 PM CDT 05/29/2024 11:09 PM CDT Mike Hollis MD LAB BLOOD ORDERABLES F inal Result Performing Organization Address [place] de Phone Number [facility] [phone] [address] [facility] [place] [address] * Magnesium (05/29/2024 10:53 PM CDT) Magnesium 2.2 1.4 - 2.5 mg/dL Blood 05/29/2024 10:5 3 PM CDT 05/29/2024 11:09 PM CDT Mike Hollis MD LAB BLOOD ORDERABLES F inal Result Performing Organization Address [place] Co de Phone Number [facility] [phone] [address] [facility] [place] [address] * (ABNORMAL) Basic metabolic panel (05/29/2024 10:53 PM CDT) Pathologist [facility] Sodium 133(L) 135 - 145 mmol/L Potassium, pl 5.1(H) 3.3 - 4.9 mmol/L [facility] Comment:Hemolysis present. R esults may be affected. Chloride 98 97 - 110 mmol/L [facility] CO2 26 22 - 32 mmol/L [facility] Anion gap 9 2 - 15 mmol/L [facility] BUN 9 6 - 25 mg/dL [facility] Creatinine 0.58(L) 0.60 - 1.10 mg/dL [facility] Glucose 90 70 - 199 mg/dL [facility] Comment: [...] Calcium 8.6 8.5 - 10.3 mg/dL [facility] Blood 05/29/2024 10:5 3 PM CDT 05/29/2024 11:09 PM CDT Mike Hollis MD LAB BLOOD ORDERABLES F inal Result [facility] [id number] Department [place] [address] * (ABNORMAL) CBC with auto differential (05/29/2024 10:53 PM CDT) Pathologist [facility] WBC 8.6 3.8 - 9.9 K/cumm Hgb 12.2 11.9 - 15.5 g/dL [facility] Hct 36.9 35.6 - 45.5 % [facility] Plt 286 150 - 400 K/cumm [facility] MPV 10.0 9.1 - 12.3 fL [facility] RBC 3.76(L) 3.90 - 5.20 M/cumm [facility] MCV 98.1(H) 81.3 - 96.4 fL [facility] MCH 32.4 27.1 - 33.3 pg [facility] MCHC 33.1 32.3 - 35.7 g/dL [facility] RDW CV 14.6 11.1 - 14.9 % [facility] RDW SD 53.0(H) 35.7 - 48.1 fL [facility] NRBC abs 0.00 0.00 - 0.01 K/cumm [facility] Blood 05/29/2024 10:5 3 PM CDT 05/29/2024 11:09 PM CDT Mike Hollis MD LAB BLOOD ORDERABLES F inal Result Performing Organization Address [place] de Phone Number [facility] [phone] Department [place] [address] * ECG 12 lead (05/29/2024 10:29 PM CDT) 05/29/2024 10:2 9 PM CDT Narrative [facility] - 05/30/2024 6:24 AM CDT Vent Rate: 93 bpm RR Interval: 645 msec HI Interval: 0 msec QRS Duration: 97 msec QT Interval: 197 msec QTC Interval: 247 msec P-R-T [place]: 0 - 118 - 0 degrees IMPRESSION: ATRIAL FIBRILLATION WITH ABERRANT CONDUCTION OR VENTRICULAR PREMATURE COMPLEXES LOW QRS VOLTAGE ??[QRS DEFLECTION < 0.5/1.0 mV IN LIMB/CHEST LEADS] SEPTAL MYOCARDIAL INFARCTION , PROBABLY OLD [40+ ms Q WAVE IN V1/V2] Nonspecific IVCD LATERAL MYOCARDIAL INFARCTION , OF INDETERMINATE AGE [40+ ms Q WAVE AND/OR ST/T ABNORMALITY IN I/aVL/V5/V6] ABNORMAL ECG Electronically Signed By: Antonio Carlos MD Mike Hollis MD ECG ORDERABLES Final Result Performing Organization Address [place] Co de Phone Number [facility] * POCT glucose (05/29/2024 8:02 PM CDT) Glucose, POC 108 70 - 199 mg/dL Blood 05/29/2024 8:02 PM CDT 05/29/2024 8:02 PM CDT Nba Tubbs MD LAB POCT ORDERABLES - DEVICE Final Result [facility] [id number] [address] Department [place] [address] documented in this encounter Visit Diagnoses Diagnosis Endocarditis- Primary Endocarditis, valve unspecified, unspecified cause Diabetes mellitus with hyperglycemia (HCC) Acquired hypothyroidism Unspecified hypothyroidism Acute bacterial endocarditis Acute and subacute bacterial endocarditis Hyponatremia Hyposmolality and/or hyponatremia Acute on chronic systolic congestive heart failure (CMS/HCC) (HCC) SOB (shortness of breath) Shortness of breath Acute on chronic systolic congestive heart failure (CMS/HCC) (HCC) Neck pain Cervicalgia Hyponatremia Hyposmolality and/or hyponatremia Chronic a-fib (CMS/HCC) (HCC) Atrial fibrillation Type 2 diabetes mellitus, with long-term current use of insulin (HCC) Hypothyroid Unspecified hypothyroidism JOSE (obstructive sleep apnea) Obstructive sleep apnea (adult) (pediatric) Diabetes mellitus with hyperglycemia (HCC) Traumatic hematoma of right upper arm Hypotension Unspecified hypotension documented in this encounter Admitting Diagnoses Diagnosis Endocarditis Endocarditis, valve unspecified, unspecified cause documented in this encounter Administered Medications Inactive Administered Medications - up to 3 most recent administrations Medication Order MAR Action Action Date Dose Rate Site carvediloL (COREG) tablet 6.25 mg 6.25 mg, oral, 2 times daily with meals (bkfst, dinner), First dose on Tue05/30/24 at 0800 Given 06/08/2024 5:22 PM CDT 6.25 mg Given 06/08/2024 10:44 AM CDT 6.25 mg Given 06/07/2024 5:39 PM CDT 6.25 mg ceFAZolin (ANCEF) 2,000 mg/100 mL in dextrose (premix) 2,000 mg 2,000 mg, intravenous, at 200 mL/hr, Administer over 30 Minutes, Every 8 hours scheduled, First dose on Tue05/29/24 at 2245, Indications: endocarditisIndications:endocardi tis New Bag 06/08/2024 2:06 PM CDT 2,000 mg 200 mL/hr New Bag 06/08/2024 6:43 AM CDT 2,000 mg 200 mL/hr New Bag 06/07/2024 10:18 PM CDT 2,000 mg 200 mL/hr dextrose (D10W) 10% bolus 250 mL 250 mL, intravenous, at 1,000 mL/hr, Administer over 15 Minutes, Every 15 min PRN, blood glucose less than 70 mg/dL and UNABLE to swallow/take PO glucose/juice., Starting on Tue05/29/24 at 2201, After treatment for hypoglycemia, recheck BG followed [...] glucose less than 70 mg/dL, Starting on Tue05/29/24 at 2201, If patient is alert and able to [...] mg, oral, 3 times daily, First dose on Tue05/29/24 at 2245 Given 06/08/2024 5:23 PM CDT 30 mg Given 06/08/2024 10:42 AM CDT 30 mg Given 06/07/2024 10:00 PM CDT 30 mg docusate sodium (COLACE) capsule 100 mg 100 mg, oral, 2 times daily PRN, constipation, Starting on Tue05/29/24 at 2157, Indications: constipationIndications:constipation Given 06/04/2024 10:43 AM CDT 100 mg docusate sodium (COLACE) capsule 100 mg 100 mg, oral, 2 times daily PRN, constipation, 2nd line behind polyethylene glycol, Starting on Tue06/06/24 at 0858, Indications: constipationIndications:constipation dofetilide (TIKOSYN) capsule 250 mcg 250 mcg, oral, 2 times daily, First dose (after last modification) on Tue06/02/24 at 0900, For 724 doses, Ensure patient has drug supply prior to discharge., Status: Initiation or Change in Dose, Indications: cardiac arrhythmiaIndications:cardiac arrhythmia Given 06/03/2024 7:42 AM CDT 250 mcg Given 06/02/2024 8:55 PM CDT 250 mcg Given 06/02/2024 8:36 AM CDT 250 mcg dofetilide (TIKOSYN) capsule 500 mcg 500 mcg, oral, 2 times daily, First dose on Tue05/30/24 at 0800, For 365 days, Ensure patient has drug supply prior to discharge., Status: Initiation or Change in Dose, Indications: cardiac arrhythmiaIndications:cardiac arrhythmia Given 06/01/2024 10:00 PM CDT 50 0 mcg Given 06/01/2024 9:13 AM CDT 500 mcg Given 05/31/2024 8:38 PM CDT 500 mcg dofetilide (TIKOSYN) capsule 500 mcg 500 mcg, oral, 2 times daily, First dose (after last modification) on Tue06/03/24 at 2100, For 721 doses, Ensure patient has drug supply prior to discharge., Status: Initiation or Change in Dose, Indications: cardiac arrhythmiaIndications:cardiac arrhythmia Given 06/08/2024 10:44 AM CDT 500 mcg Given 06/07/2024 10:00 PM CDT 500 mcg Given 06/07/2024 9:50 AM CDT 500 mcg escitalopram (LEXAPRO) tablet 10 mg 10 mg, oral, Daily, First dose on Tue05/30/24 at 0900 Given 06/08/2024 10:42 AM CDT 10 mg Given 06/07/2024 9:51 AM CDT 10 mg Given 06/06/2024 9:13 AM CDT 10 mg ferrous sulfate delayed release tablet 65 mg of elemental iron 65 mg of elemental iron, oral, Daily with breakfast, First dose on Tue05/30/24 at 0800, 325 MG OF FERROUS SULFATE = 65 MG OF ELEMENTAL IRON, Indications: Iron Deficiency AnemiaIndications:Iron Deficiency Anemia Given 06/08/2024 10:44 AM CDT 65 mg of elemental iron Given 06/07/2024 9:51 AM CDT 65 mg of elemental iron Given 06/06/2024 9:13 AM CDT 65 mg of elemental iron furosemide (LASIX) 10 mg/mL injection 40 mg 40 mg, intravenous, 2 times daily (for diuretics), First dose on Tue05/30/24 at 0900, For IV push: administer doses < 160 mg at a rate of 20 -40 mg/min. Doses >/= 160 mg should be administered no faster than 4 mg/min. Room temperature only Given 06/08/2024 5:23 PM CDT 40 mg Given 06/08/2024 10:42 AM CDT 40 mg Given 06/07/2024 4:48 PM CDT 40 mg glucagon injection 1 mg 1 mg, intramuscular, Every 30 min PRN, low blood sugar, blood glucose less than 70 mg/dL AND no IV access AND unable to take PO glucose/juice., Starting on Tue05/29/24 at 2201, After Glucagon is administered, position patient on [...] 1 mL SWFI. Use immediately following reconstitution. HYDROcodone-acetaminophen (NORCO) 5-325 mg per tablet 1 tablet 1 tablet, oral, 4 times daily PRN, 1st line for pain, Starting on Tue05/29/24 at 2157, Indications: PainIndications:Pain Given 06/06/2024 7:14 PM CDT 1 tablet Given 06/06/2024 6:01 AM CDT 1 tablet Given 06/05/2024 4:14 PM CDT 1 tablet insulin glargine (LANTUS, SEMGLEE) 100 unit/mL injection 14 Units 14 Units, subcutaneous, Every morning, First dose on Tue05/30/24 at 0900, Do not mix with other insulins Given 05/31/2024 10:42 AM CDT 14 Units Left Lower Abdomen Given 05/30/2024 1:13 PM CDT 14 Units Le ft Upper Arm insulin glargine (LANTUS, SEMGLEE) 100 unit/mL injection 18 Units 18 Units, subcutaneous, Every morning, First dose (after last modification) on Tue06/01/24 at 0900, Do not mix with other insulins Given 06/08/2024 10:43 AM CDT 18 Units Left Upper Arm Given 06/07/2024 9:51 AM CDT 18 Units Le ft Upper Abdomen Given 06/06/2024 9:14 AM CDT 18 Units Ri ght Lower Abdomen insulin lispro (HumaLOG, ADMELOG) 100 unit/mL injection 0-4 Units 0-4 Units, subcutaneous, Nightly, First dose on Tue05/29/24 at 2245, Blood glucose mg/dL: 199 or less: No insulin 200-249: add 1 unit 250-299: add 2 units 300-349: add 3 units and notify physician for adjustment of insulin orders. 350-399: add 4 units and notify physician for adjustment of insulin orders. Over 400: Notify physician for adjustment of insulin orders. Do NOT hold for NPO Status, Indications: Diabetes MellitusIndications:Diabetes Mellitus Given 06/05/2024 9:25 PM CDT 1 Units Left Upper Arm Given 06/01/2024 10:05 PM CDT 1 Units L eft Upper Abdomen Given 05/31/2024 8:45 PM CDT 2 Units Le ft Lower Abdomen insulin lispro (HumaLOG, ADMELOG) 100 unit/mL injection 0-5 Units 0-5 Units, subcutaneous, 3 times daily with meals, First dose on Tue05/30/24 at 0800, Blood glucose mg/dL: 149 or [...] NPO Status, Indications: Diabetes MellitusIndications:Diabetes Mellitus Given 06/08/2024 5:28 PM CDT 1 Units Left Lower Abdomen Given 06/08/2024 12:57 PM CDT 3 Units L eft Lower Abdomen Given 06/07/2024 12:41 PM CDT 3 Units L eft Lower Abdomen insulin lispro (HumaLOG, ADMELOG) 100 unit/mL injection 10 Units 10 Units, subcutaneous, 3 times daily with meals, First dose (after last modification) on Tue06/01/24 at 0800, If BG greater than or [...] eat, or if BG less than 70 mg/dL. Given 06/08/2024 5:22 PM CDT 10 Units Left Lower Abdomen Given 06/08/2024 12:57 PM CDT 10 Units L eft Upper Abdomen Given 06/07/2024 5:41 PM CDT 10 Units Ri ght Lower Abdomen insulin lispro (HumaLOG, ADMELOG) 100 unit/mL injection 5 Units 5 Units, subcutaneous, 3 times daily with meals, First dose on Tue05/31/24 at 0800 Given 05/31/2024 6:18 PM CDT 5 Units Right Lower Abdomen Given 05/31/2024 1:13 PM CDT 5 Units Le ft Lower Abdomen ioversoL (OPTIRAY 350) syringe 125 mL 125 mL, intravenous, Once in imaging, contrast, Starting on Tue05/30/24 at 0342, For 1 dose Contrast Given 05/30/2024 3:43 AM CDT 91 mL ioversoL (OPTIRAY 350) syringe 125 mL 125 mL, intravenous, Once in imaging, contrast, Starting on Tue06/01/24 at 1340, For 1 dose Contrast Given 06/01/2024 1:42 PM CDT 119 mL ioversoL (OPTIRAY 350) syringe 125 mL 125 mL, intravenous, Once in imaging, contrast, Starting on Tue06/06/24 at 2250, For 1 dose Contrast Given 06/06/2024 11:04 PM CDT 119 mL levothyroxine (SYNTHROID) tablet 75 mcg 75 mcg, oral, Daily (early AM), First dose on Tue05/30/24 at 0600, Administer on an empty stomach, preferably 30 minutes before breakfast. Take 4 hours apart from antacids, iron and calcium products. Separate from tube feeds, if applicable. Given 06/08/2024 6:43 AM CDT 75 mcg Given 06/07/2024 6:14 AM CDT 75 mcg Given 06/06/2024 4:41 AM CDT 75 mcg lidocaine (PF) (XYLOCAINE) 10 mg/mL (1 %) preservative free injection As needed, Starting on Tue06/05/24 at 1457, Intra-Procedure (IR), Indications: Administration of Local AnesthesiaIndications:Administration of Local Anesthesia Given 06/05/2024 2:57 PM CDT 5 mL midodrine (PROAMATINE) tablet 5 mg 5 mg, oral, 3 times daily before meals, First dose on Tue06/07/24 at 0730, Indications: Symptomatic Orthostatic HypotensionIndications:Symptomatic Orthostatic Hypotension Given 06/08/2024 5:23 PM CDT 5 mg Given 06/08/2024 12:58 PM CDT 5 mg Given 06/08/2024 6:43 AM CDT 5 mg nortriptyline (PAMELOR) capsule 10 mg 10 mg, oral, Nightly, First dose on Tue05/29/24 at 2245 Given 06/07/2024 10:00 PM CDT 10 mg Given 06/06/2024 9:22 PM CDT 10 mg Given 06/05/2024 9:26 PM CDT 10 mg ondansetron (ZOFRAN) injection 4 mg 4 mg, intravenous, Administer over 2 Minutes, Every 6 hours PRN, nausea, vomiting, Starting on Tue05/29/[address] (PROTONIX) extended release tablet 40 mg 40 mg, oral, Daily, First dose on Tue05/30/24 at 0900, Do not crush, chew, cut, dissolve, open or otherwise manipulate tablet/capsule., Indications: Treatment of Non-Bleeding Gastric DisorderIndications:Treatment of Non-Bleeding Gastric Disorder Given 06/08/2024 10:42 AM CDT 40 mg Given 06/07/2024 9:51 AM CDT 40 mg Given 06/06/2024 9:13 AM CDT 40 mg perflutren protein-a (OPTISON) 3 mL in sodium chloride 0.9% 8 mL syringe 1-8 mL, intravenous, Once in imaging, contrast, Starting on Tue05/30/24 at 0904, For 1 dose, Intra-Procedure (CV) Contrast Given 05/30/2024 8:15 AM CDT 2 mL polyethylene glycol (MIRALAX) packet 17 g 17 g, oral, Daily PRN, constipation, Starting on Tue05/29/24 at 2158, Indications: constipationIndications:constipatio n Given 06/04/2024 10:43 AM CDT 17 g potassium chloride ER (KLOR-CON) extended release tablet 40 mEq 40 mEq, oral, Once, On Tue06/02/24 at 1145, For 1 dose, Do not crush, chew, cut, dissolve, open or otherwise manipulate tablet/capsule. Given 06/02/2024 12:39 PM CDT 40 mEq rivaroxaban (XARELTO) tablet 20 mg 20 mg, oral, Daily with dinner, First dose on Tue05/30/24 at 1800, For 99 doses, Nurse to discontinue heparin infusion order and associated bolus at first administration of rivaroxaban using 'order condition met' order source. If patient is eating, administer doses of 15 mg or greater with food. If patient is not eating, still administer dose unless instructed differently by provider., Indications: atrial fibrillationIndications:atrial fibrillation Given 06/08/2024 5:23 PM CDT 20 mg Given 06/07/2024 5:41 PM CDT 20 mg Given 06/06/2024 4:56 PM CDT 20 mg sacubitriL-valsartan (ENTRESTO) 24-26 mg tablet 1 tablet 1 tablet, oral, 2 times daily, First dose on Tue05/30/24 at 0900, Indications: chronic heart failureIndications:chronic heart failure Given 06/08/2024 5:23 PM CDT 1 tablet Given 06/07/2024 9:59 PM CDT 1 tablet Given 06/07/2024 9:51 AM CDT 1 tablet sodium chloride 0.9% flush 5-10 mL 5-10 mL, intra-catheter, Every 12 hours scheduled, First dose on Tue06/01/24 at 1315, Flush volume based on line type, size, and protocol. Given 06/08/2024 11:03 AM CDT 10 mL Given 06/07/2024 10:00 PM CDT 10 mL Given 06/07/2024 9:52 AM CDT 10 mL sodium chloride 0.9% flush 5-20 mL 5-20 mL, intra-catheter, As needed, line care, with each use, Starting on Tue06/01/24 at 1243, Flush volume based on line type, size, and protocol. documented in this encounter Historical Medications * This list may reflect changes made after this encounter. albuterol HFA (PROVENTIL HFA,VENTOLIN HFA,PROAIR HFA) 90 mcg/actuation inhaler Inhale 2 puffs every 6 (six) hours as needed for wheezing fluticasone propionate (FLONASE) 50 mcg/actuation nasal spray Administer 1 spray into each nostril daily as needed for rhinitis cholecalciferol (VITAMIN D-3) 5,000 unit tablet Take 1 tablet (5,000 Units total) by mouth daily multivit jpvjkixm-njcv-NW -calcium (THERA-M) 9 mg iron-400 mcg tablet Take 1 tablet by mouth daily Gemtesa 75 mg tablet Take 1 tablet by mouth daily docusate sodium (COLACE) 100 mg capsule Take 1 capsule (100 mg total) by mouth 2 (two) times a day 09/23/2017 Xarelto 20 mg tablet Take 1 tablet (20 mg total) by mouth daily with dinner omeprazole (PriLOSEC) 20 mg capsule Take 1 capsule (20 mg total) by mouth daily levothyroxine (SYNTHROID) 75 mcg tablet Take 1 tablet (75 mcg total) by mouth every morning ferrous sulfate 325 mg (65 mg of elemental iron) tablet Take 1 tablet (325 mg total) by mouth daily with breakfast escitalopram (LEXAPRO) 10 mg tablet Take 1 tablet (10 mg total) by mouth daily 12/12/2023 Entresto 24-26 mg tablet Take 1 tablet by mouth 2 (two) times a day 09/11/2021 potassium chloride ER 20 mEq CR tablet Take 1 tablet (20 mEq total) by mouth daily 01/20/2024 4 nortriptyline (PAMELOR) 10 mg capsule Take 1 capsule (10 mg total) by mouth daily 05/18/2024 4 BASAGLAR 100 unit/mL (3 mL) pen for injection Inject 18 Units under the skin daily 02/09/2024 4 NovoLOG 100 unit/mL (3 mL) pen for injection Inject 10 Units under the skin 3 (three) times a day with meals Plus slide 07/18/2023 4 furosemide (LASIX) 40 mg tablet Take 1 tablet (40 mg total) by mouth daily 04/02/2024 4 dilTIAZem (CARDIZEM) 30 mg tablet Take 1 tablet (30 mg total) by mouth 2 (two) times a day 04/28/2017 4 Farxiga 10 mg tablet Take 1 tablet (10 mg total) by mouth daily 06/01/2022 4 carvediloL (COREG) 25 mg tablet Take 1 tablet (25 mg total) by mouth 2 (two) times a day with meals 05/06/2017 4 added in this encounter Active and Recently Administered Medications Times are shown in CDT. Scheduled Medication Order 06/06/2024 06/07/2024 06/08/2024 carvediloL (COREG) tablet 6.25 mg 6.25 mg, oral, 2 times daily with meals (bkfst, dinner), First dose on Tue05/30/24 at 0800 0913 (Given - Provider: Raghavendra Vaz)1928 (Not Given - Provider: Lou Francois RN - Reason: Other) 0986 (Given - Provider: Lawson Austin RN)1739 (Given - Provider: Lawson Austin RN) 1044 (Given - Provider: Shereen Preston RN)1722 (Given - Provider: Lawson Austin RN) ceFAZolin (ANCEF) 2,000 mg/100 mL in dextrose (premix) 2,000 mg 2,000 mg, intravenous, at 200 mL/hr, Administer over 30 Minutes, Every 8 hours scheduled, First dose on 8/20/24 at 2245, Indications: endocarditis 0441 (New Bag - Provider: Hailee Echeverria RN)1545 (New Bag - Provider: Raghavendra Vaz)2141 (New Bag - Provider: Agnieszka Conroy RN) 0613 (New Bag - Provider: Agnieszka Conroy RN)1424 (New Bag - Provider: Lawson Austin RN)2218 (New Bag - Provider: Anat Lebron) 0643 (New Bag - Provider: Anat Lebron)1406 (New Bag - Provider: Lawson Austin RN) dilTIAZem (CARDIZEM) tablet 30 mg 30 mg, oral, 3 times daily, First dose on Tue05/29/24 at 2245 0913 (Given - Provider: Raghavendra Vaz)1600 (Not Given - Provider: Lou Francois RN - Reason: Order parameters not met)2121 (Given - Provider: Agnieszka Conroy RN) 0951 (Given - Provider: Lawson Austin RN)1648 (Given - Provider: Shereen Prseton RN)2200 (Given - Provider: Anat Lebron) 1042 (Given - Provider: Shereen Preston, BROWN)1723 (Given - Provider: Lawson Austin RN) dofetilide (TIKOSYN) capsule 500 mcg 500 mcg, oral, 2 times daily, First dose (after last modification) on Tue06/03/24 at 2100, For 721 doses, Ensure patient has drug supply prior to discharge., Status: Initiation or Change in Dose, Indications: cardiac arrhythmia 09 (Given - Provider: Raghavendra Vaz)2121 (Given - Provider: Agnieszka Conroy RN) 0950 (Given - Provider: Lawson Austin RN)2200 (Given - Provider: Anat Lebron) 1044 (Given - Provider: Shereen Preston RN) escitalopram (LEXAPRO) tablet 10 mg 10 mg, oral, Daily, First dose on Tue05/30/24 at 0900 0913 (Given - Provider: Raghavendra Vaz) 0951 (Given - Provider: Lawson Austin RN) 1042 (Given - Provider: Shereen Preston, BROWN) ferrous sulfate delayed release tablet 65 mg of elemental iron 65 mg of elemental iron, oral, Daily with breakfast, First dose on Tue05/30/24 at 0800, 325 MG OF FERROUS SULFATE = 65 MG OF ELEMENTAL IRON, Indications: Iron Deficiency Anemia 0913 (Given - Provider: Raghavendra Vaz) 0951 (Given - Provider: Lawson Austin RN) 1044 (Given - Provider: Shereen Preston, BROWN) furosemide (LASIX) 10 mg/mL injection 40 mg 40 mg, intravenous, 2 times daily (for diuretics), First dose on Tue05/30/24 at 0900, For IV push: administer doses < 160 mg at a rate of 20 -40 mg/min. Doses >/= 160 mg should be administered no faster than 4 mg/min. Room temperature only 0914 (Given - Provider: Raghavendra Vaz)1512 (Not Given - Provider: Lou Francois RN - Reason: Order parameters not met - Comment: BP 90/60) 0951 (Given - Provider: Lawson Austin RN)1648 (Given - Provider: Shereen Preston, BROWN) 1042 (Given - Provider: Shereen Preston, BROWN)1723 (Given - Provider: Lawson Austin RN) insulin glargine (LANTUS, SEMGLEE) 100 unit/mL injection 18 Units 18 Units, subcutaneous, Every morning, First dose (after last modification) on Tue06/01/24 at 0900, Do not mix with other insulins 0914 (Given - Provider: Raghavendra Vaz) 0951 (Given - Provider: Lawson Austin RN) 1043 (Given - Provider: Shereen Preston, BROWN) insulin lispro (HumaLOG, ADMELOG) 100 unit/mL injection 0-4 Units 0-4 Units, subcutaneous, Nightly, First dose on Tue05/29/24 at 2245, Blood glucose mg/dL: 199 or less: No insulin 200-249: add 1 unit 250-299: add 2 units 300-349: add 3 units and notify physician for adjustment of insulin orders. 350-399: add 4 units and notify physician for adjustment of insulin orders. Over 400: Notify physician for adjustment of insulin orders. Do NOT hold for NPO Status, Indications: Diabetes Mellitus 2121 (Not Given - Provider: Agnieszka Conroy RN - Reason: Order parameters not met) 221 (Not Given - Provider: Anat Lebron - Reason: Order parameters not met) insulin lispro (HumaLOG, ADMELOG) 100 unit/mL injection 0-5 Units 0-5 Units, subcutaneous, 3 times daily with meals, First dose on Tue05/30/24 at 0800, Blood glucose mg/dL: 149 or [...] hold for NPO Status, Indications: Diabetes Mellitus 0918 (Given - Provider: Raghavendra Vaz)1239 (Given - Provider: Raghavendra Vaz)1928 (Not Given - Provider: Lou Francois RN - Reason: Other) 0614 (Not Given - Provider: Agnieszka Conroy RN - Reason: Order parameters not met)1241 (Given - Provider: Lawson Austin, BROWN)1736 (Not Given - Provider: Shereen Preston RN - Reason: Order parameters not met) 1059 (Not Given - Provider: Shereen Preston RN - Reason: Other - Comment: Leuking MD aware unable to give with breakfast)1257 (Given - Provider: Shereen Preston, BROWN)1728 (Given - Provider: Lawson Austin, BROWN) insulin lispro (HumaLOG, ADMELOG) 100 unit/mL injection 10 Units 10 Units, subcutaneous, 3 times daily with meals, First dose (after last modification) on Tue06/01/24 at 0800, If BG greater than or [...] eat, or if BG less than 70 mg/dL. 0914 (Given - Provider: Raghavendra Vaz)1238 (Given - Provider: Raghavendra Vaz)1656 (Given - Provider: Raghavendra Vaz) 0951 (Given - Provider: Lawson Austin RN)1238 (Given - Provider: Lawson Austin RN)1741 (Given - Provider: Lawson Austin RN) 1059 (Not Given - Provider: Shereen Preston RN - Reason: Other - Comment: Cristela Jimenes aware unable to give with breakfast)1257 (Given - Provider: Shereen Preston, BROWN)1722 (Given - Provider: Lawson Austin RN) levothyroxine (SYNTHROID) tablet 75 mcg 75 mcg, oral, Daily (early AM), First dose on Tue05/30/24 at 0600, Administer on an empty stomach, preferably 30 minutes before breakfast. Take 4 hours apart from antacids, iron and calcium products. Separate from tube feeds, if applicable. 0441 (Given - Provider: Hailee Echeverria RN) 0614 (Given - Provider: Agnieszka Conroy RN) 0643 (Given - Provider: Anat Lebron) midodrine (PROAMATINE) tablet 5 mg 5 mg, oral, 3 times daily before meals, First dose on Tue06/07/24 at 0730, Indications: Symptomatic Orthostatic Hypotension 0614 (Given - Provider: Agnieszka Conroy RN)1311 (Not Given - Provider: Lawson Austin RN - Reason: Order parameters not met - Comment: Pt blood pressure SBP =130, hold per Abril JIMENES)1648 (Given - Provider: Shereen Preston RN) 0643 (Given - Provider: Anat Lebron)1258 (Given - Provider: Sheeren Preston, BROWN)1723 (Given - Provider: Lawson Austin RN) nortriptyline (PAMELOR) capsule 10 mg 10 mg, oral, Nightly, First dose on Tue05/29/24 at 1766 2122 (Given - Provider: Agnieszka Conroy RN) 2199 (Given - Provider: Anat Lebron) pantoprazole DR (PROTONIX) extended release tablet 40 mg 40 mg, oral, Daily, First dose on Tue05/30/24 at 0900, Do not crush, chew, cut, dissolve, open or otherwise manipulate tablet/capsule., Indications: Treatment of Non-Bleeding Gastric Disorder 912 (Given - Provider: Raghavendra Vaz) 950 (Given - Provider: Lawson Austin RN) 104 (Given - Provider: Shereen Preston RN) rivaroxaban (XARELTO) tablet 20 mg(Linked Group 1) 20 mg, oral, Daily with dinner, First dose on Tue05/30/24 at 1800, For 99 doses, Nurse to discontinue heparin infusion order and associated bolus at first administration of rivaroxaban using 'order condition met' order source. If patient is eating, administer doses of 15 mg or greater with food. If patient is not eating, still administer dose unless instructed differently by provider., Indications: atrial fibrillation 1655 (Given - Provider: Raghavendra Vaz) 1740 (Given - Provider: Lawson Austin RN) 172 (Given - Provider: Lawson Austin RN) sacubitriL-valsartan (ENTRESTO) 24-26 mg tablet 1 tablet 1 tablet, oral, 2 times daily, First dose on Tue05/30/24 at 0900, Indications: chronic heart failure 912 (Given - Provider: Raghavendra Vaz)2121 (Given - Provider: Agnieszka Conroy RN) 51 (Given - Provider: Lawson Austin RN)215 (Given - Provider: Anat Lebron) 1723 (Given - Provider: Lawson Austin RN) sodium chloride 0.9% flush 5-10 mL 5-10 mL, intra-catheter, Every 12 hours scheduled, First dose on Tue06/01/24 at 1315, Flush volume based on line type, size, and protocol. 174 (Given - Provider: Raghavendra Vaz)2122 (Given - Provider: Agnieszka Conroy RN) 0952 (Given - Provider: Lawson Austin RN)2200 (Given - Provider: Anat Lebron) 1103 (Given - Provider: Shereen Preston RN) PRN Medication Order 06/06/2024 06/07/2024 06/08/2024 dextrose (D10W) 10% bolus 250 mL(Linked Group 2) 250 mL, intravenous, at 1,000 mL/hr, Administer over 15 Minutes, Every 15 min PRN, blood glucose less than 70 mg/dL and UNABLE to swallow/take PO glucose/juice., Starting on Tue05/29/24 at 2201, After treatment for hypoglycemia, recheck BG followed by treatment every 15 minutes until the BG is greater than 100 mg/dL. Then check BG 1 hour post treatment. If BG is less than 100 mg/dL, repeat Q15 minute BG checks and treatment. Call MD for each episode of hypoglycemia., Indications: hypoglycemic disorder dextrose oral liquid liquid 15 g(Linked Group 2) 15 g, oral, Every 15 min PRN, low blood sugar, blood glucose less than 70 mg/dL, Starting on Tue05/29/24 at 2201, If patient is alert and able to [...] each episode of hypoglycemia., Indications: hypoglycemic disorder docusate sodium (COLACE) capsule 100 mg 100 mg, oral, 2 times daily PRN, constipation, 2nd line behind polyethylene glycol, Starting on Tue06/06/24 at 0858, Indications: constipation glucagon injection 1 mg 1 mg, intramuscular, Every 30 min PRN, low blood sugar, blood glucose less than 70 mg/dL AND no IV access AND unable to take PO glucose/juice., Starting on Tue05/29/24 at 2201, After Glucagon is administered, position patient on [...] 1 mL SWFI. Use immediately following reconstitution. HYDROcodone-acetaminophen (NORCO) 5-325 mg per tablet 1 tablet 1 tablet, oral, 4 times daily PRN, 1st line for pain, Starting on Tue05/29/24 at 2157, Indications: Pain 0601 (Given - Provider: Hailee Echeverria, BROWN)1914 (Given - Provider: Raghavendra Vaz) ioversoL (OPTIRAY 350) syringe 125 mL (COMPLETED) 125 mL, intravenous, Once in imaging, contrast, Starting on Tue06/06/24 at 2250, For 1 dose 2304 (Contrast Given - Provider: Miya Pereira, RT) ondansetron (ZOFRAN) injection 4 mg 4 mg, intravenous, Administer over 2 Minutes, Every 6 hours PRN, nausea, vomiting, Starting on Tue05/29/24 at 2203 polyethylene glycol (MIRALAX) packet 17 g 17 g, oral, Daily PRN, constipation, Starting on Tue05/29/24 at 2158, Indications: constipation sodium chloride 0.9% flush 5-20 mL 5-20 mL, intra-catheter, As needed, line care, with each use, Starting on Tue06/01/24 at 1243, Flush volume based on line type, size, and protocol. Linked Groups Order Group 1: rivaroxaban (XARELTO) tablet 20 mgJump to med 20 mg, oral, Daily with dinner, First dose on Tue05/30/24 at 1800, For 99 doses, Nurse to discontinue heparin infusion order and associated bolus at first administration of rivaroxaban using 'order condition met' order source. If patient is eating, administer doses of 15 mg or greater with food. If patient is not eating, still administer dose unless instructed differently by provider., Indications: atrial fibrillation Followed by rivaroxaban (XARELTO) tablet 20 mg (CANCELED) 20 mg, oral, Daily with dinner, First dose on Rowena 09/06/24 at 1800, Nurse to discontinue heparin infusion order and associated bolus at first administration of rivaroxaban using 'order condition met' order source. If patient is eating, administer doses of 15 mg or greater with food. If patient is not eating, still administer dose unless instructed differently by provider., Indications: deep venous thrombosis Group 2: dextrose oral liquid liquid 15 gJump to med 15 g, oral, Every 15 min PRN, low blood sugar, blood glucose less than 70 mg/dL, Starting on Tue05/29/24 at 2201, If patient is alert and able to [...] UNABLE to swallow/take PO glucose/juice., Starting on Tue05/29/24 at 2201, After treatment for hypoglycemia, recheck BG followed [...] Count Last Ordered Date First Ordered Date docusate sodium (COLACE) capsule 100 mg 1 0 06/06/2024 lidocaine (XYLOCAINE) 10 mg/ mL (1 %) injection 10-20 mg 1 06/01/2024 sodium chloride 0.9% flush 5-20 mL 1 2023 dextrose (D10W) 10% bolus 250 mL 05/29/20 dextrose oral liquid liquid 15 g 05/29/20 furosemide (LASIX) tablet 40 mg 1 glucagon injection 1 mg 1 05/29/2024 ondansetron (ZOFRAN) injection 4 mg 05/29 rivaroxaban (XARELTO) tablet 20 mg 1 08/20/ 2024 Lab Orders Without Results Count Last Ordered D ate First Ordered Date POCT GLUCOSE DEVICE 37 06/08/2024 05/30/20 24 Diet Count Last Ordered Date First Orde red Date ADULT DISCHARGE DIET 1 06/08/2024 Nursing Count Last Ordered Date First Orde red Date DISCHARGE ACTIVITY 1 06/08/2024 FOLLOW UP WITH ESTABLISHED PROVIDER 1 06/08 TELEMETRY MONITORING 4 06/05/2024 024 NURSING COMMUNICATION 1 05/30/2024 Consult Count Last Ordered Date First Orde red Date AUTHORIZATION FOR POST-ACUTE CARE 1 024 IP CONSULT TO SOCIAL WORK 2 06/04/2024 IP CONSULT TO CARDIOLOGY 1 05/30/2024 IP CONSULT TO CARDIOTHORACIC SURGERY 1 05/11 IP CONSULT TO INFECTIOUS DISEASES 1 024 Admission Count Last Ordered Date First Orde red Date ADMIT TO INPATIENT 1 05/29/2024 Discharge Count Last Ordered Date First Orde red Date DISCHARGE PATIENT 1 06/08/2024 documented in this encounter Care Teams Netezza Developer Relationship Specialty Start Date End Date Oswaldo Serrano MD [address] [address] PCP - General Family Medicine 04/14/18 [place] [id number] [address] Consulting Physician Cardiology 06/08/24 documented as of this encounter
--- OUTSIDE RECORDS SUMMARY | 2024-10-07 00:54 | XMS_ITS | Encounter Summary ---
Author Organization [facility] Address [address] [place] [address] Care Team Providers Care Conservation Of Resources Commissioner Name Role Phone Jey Klein Primary Care Provider + Encounter Details Date Type Department Care Team (Late st Contact Info) Description 03/08/2017 Orders Only Hospitalists [id number] [id number] [place] [id number] [address] Social History Tobacco Use Types Packs/Day Years Used Date Smoking Tobacco: Never Assessed Comments Unknown Sex and Gender Information Value Date Recorded Sex Assigned at Not on file 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 Gender Identity Not on file Sexual Orientation Not on file documented as of this encounter Plan of Treatment Not on file documented as of this encounter Procedures Procedure Name Priority Date/Time Associated Diagnosis Comments GLUCOSE POC Routine 03/08/2017 5:49 PM CDT documented in this encounter Results * Glucose POC (03/08/2017 5:49 PM CDT) Glucose, POC 185 70 - 199 mg/dL OLAMIDE Blood specimen (specimen) 03/08/2017 5:49 PM CDT 03/08/2017 5:49 PM CDT Elly Julian MD POINT OF CARE TEST ORDERABLES Final Result OLAMIDE [id number] [place] [address] documented in this encounter Visit Diagnoses Not on filedocumented in this encounter Care Teams Conservation Of Resources Commissioner Relationship Specialty Start Date End Date Jey Klein PA [address] [place] [id number] PCP - General 02/23/17 04/13/18 documented as of this encounter
--- OUTSIDE RECORDS SUMMARY | 2024-10-07 00:54 | XMS_ITS | Encounter Summary ---
Author Organization [facility] Healthcare Address [address] [place] [address] Care Team Providers Care Steel Pourer Helper Name Role Phone Oswaldo Serrano MD Primary Care Provider [phone] Encounter Details Date Type Department Care Team (Late st Contact Info) Description 05/21/2024 12:05 AM CDT Ancillary Procedure [facility] Outside Films Social History Tobacco Use Types Packs/Day Years Used Date Smoking Tobacco: Never Assessed Personal Safety Answer Date Recorded Getting School Help Needed Not on file 12/24 Comments Unknown Sex and Gender Information Value Date Recorded Sex Assigned at Not on file 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 us Not In File Miscellaneous IMG CT PROCEDURES Ayanna l Result [facility] documented in this encounter Visit Diagnoses Not on filedocumented in this encounter Care Teams Steel Pourer Helper Relationship Specialty Start Date End Date Oswaldo Serrano MD [address] [place] [address] PCP - General Family Medicine 04/14/18 documented as of this encounter
--- OUTSIDE RECORDS SUMMARY | 2024-10-07 00:54 | XMS_ITS | Encounter Summary ---
Author Organization 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 Gender Identity Not on file Sexual Orientation Not on file documented as of this encounter Plan of Treatment Not on file documented as of this encounter Procedures Procedure Name Priority Date/Time Associated Diagnosis Comments MAGNESIUM Routine 03/07/2017 5:05 AM CDT documented in this encounter Results * Magnesium (03/07/2017 5:05 AM CDT) Magnesium 1.9 1.8 - 2.6 mg/dL [facility] Blood specimen (specimen) 03/07/2017 5:05 AM CDT 03/07/2017 5:30 AM CDT us Elly Julian MD LAB BLOOD ORDERABLE S Final Result [facility] [id number] [place] [address] documented in this encounter Visit Diagnoses Not on filedocumented in this encounter Care Teams Assembler [employer] Cell [employer] Battery Relationship Specialty [place] [address] [place] [id number] PCP - General 02/23/17 04/13/18 documented as of this encounter
--- OUTSIDE RECORDS SUMMARY | 2024-10-07 00:54 | XMS_ITS | Encounter Summary ---
Author Organization [facility] Address [address] [place] [address] Care Team Providers Care Puller Over Name Role Phone Jey Klein Primary Care Provider + Encounter Details Date Type Department Care Team (Late st Contact Info) Description 03/07/2017 Orders Only Hospitalists [id number] [address] [place] [id number] [address] Social History Tobacco Use Types Packs/Day Years Used Date Smoking Tobacco: Never Assessed Comments Unknown Sex and Gender Information Value Date Recorded Sex Assigned at Not on file Legal Sex Female 3:51 AM COMPLIANCE MGR Gender Identity Not on file Sexual Orientation Not on file documented as of this encounter Plan of Treatment Not on file documented as of this encounter Procedures Procedure Name Priority Date/Time Associated Diagnosis Comments BASIC METABOLIC PANEL Routine 03/07/2017 5:05 AM CDT documented in this encounter Results * (ABNORMAL) Basic metabolic panel (03/07/2017 5:05 AM CDT) Sodium 133(L) 135 - 145 mmol/L [facility] Potassium, pl 3.7 3.5 - 5.1 mmol/L [facility] Chloride 93(L) 100 - 114 mmol/L [facility] CO2 29 22 - 32 mmol/L [facility] BUN 17 8 - 24 mg/dL [facility] Glucose 131 70 - 199 mg/dL [facility] Creatinine 0.92 0.60 - 1.30 mg/dL [facility] Calcium 8.4 8.4 - 10.5 mg/dL [facility] Anion gap 15 8 - 16 mmol/L [facility] Blood specimen (specimen) 03/07/2017 5:05 AM CDT 03/07/2017 5:30 AM CDT us Elly Julian MD LAB BLOOD ORDERABLE S Final Result [facility] [id number] [address] Department [place] [address] documented in this encounter Visit Diagnoses Not on filedocumented in this encounter Care Teams Puller Over Relationship Specialty Start Date End Date Jey Klein PA [address] [place] [address] PCP - General 02/23/17 04/13/18 documented as of this encounter
--- OUTSIDE RECORDS SUMMARY | 2024-10-07 00:54 | XMS_ITS | Encounter Summary ---
Author Organization [facility] Healthcare Address [address] [place] [address] Care Team Providers Care Project Financial Analyst Name Role Phone Jey Klein Primary Care Provider + Encounter Details Date Type Department Care Team (Latest Contact Info) Description 02/28/2017 8:05 PM CDT - 03/10/2017 4:34 PM CDT Hospital Encounter [facility] [address] [place] [address] Paradise Olson MD [address] [place] [address] [place] [address] [facility] [address] [place] [address] Discharge Disposition: Discharge to home or self care Social History Tobacco Use Types Packs/Day Years Used Date Smoking Tobacco: Never Assessed Comments Unknown Sex and Gender Information Value Date Recorded Sex Assigned at Not on file Legal Sex Female 3:51 AM [employer]IC [employer] Gender Identity Not on file Sexual Orientation Not on file documented as of this encounter Last Filed Vital Signs Vital Sign Reading Time Taken Comments Blood Pressure 105/57 03/10/2017 3:21 PM CDT Pulse 101 03/10/2017 3:21 PM CDT Temperature - - Respiratory Rate - - Oxygen Saturation - - Inhaled Oxygen Concentration - - Weight 120.1 kg (264 lb 12.4 oz) 03/09/2017 7:28 AM CDT Height 167.6 cm (5' 5.98 ) 03/09/2017 7:28 AM CD T Body Mass Index 42.76 03/09/2017 7:28 AM CDT documented in this encounter Discharge Summaries * Miscellaneous, Not In File - 03/10/2017 5:00 AM CDT DISCHARGE SUMMARYPatient: ASHTYN PENNNMRN: [id number]: [id number] Room No: [id number]: 1960 Patient Type: IPAttend.: Elly Martell M.D. Admit Date: 02/28/2017Dict.: Sharon Montoya M.D. Disch. Date: 03/10/2017HPIPlease refer to history and physical done by Rachel Barnes, nursepractitioner, that includes review of systems and will not be repeated here.ADMISSION DIAGNOSESHyponatremia, congestive heart failure, pericardial effusion, diabetes,hypertension, anemia, constipation, ascites, atrial fibrillation.DISCHARGE DIAGNOSES1. Hyponatremia.2. Acute systolic congestive heart failure present on admission.3. Pericardial effusion, small.4. Type 2 diabetes, uncontrolled, with hypoglycemia.5. Hypertension.6. Anemia.7. Constipation.8. Ascites.9. Questionable liver lesion secondary to steatosis and congestive heartfailure changes.10. Atrial fibrillation.DISCHARGE MEDICATIONS1. Amiodarone 200 mg p.o. daily.2. Carvedilol 25 mg p.o. b.i.d.3. Diphenhydramine 25 mg p.o. every 6 hours p.r.n.4. Docusate 100 mg p.o. b.i.d.5. Eliquis 5 mg p.o. daily.6. Humulin 70/30, 10 units subcutaneous daily with dinner and 18 unitssubcutaneous daily before breakfast.7. Januvia 100mg p.o. daily.8. Lasix 40 mg p.o. daily.9. Lisinopril 10 mg p.o. daily.10. Nortriptyline 10 mg p.o.at bedtime.11. Oxybutynin 5 mg p.o. daily.12. Ranitidine 150 mg p.o. b.i.d.13. Senna S 1 tablet p.o. daily.CONSULTATIONS1. GI, Dr. Malcolm.2. Cardiology, Dr. Mcfarland/Dr. Pastora Flores.PROCEDURES AND IMAGING STUDIES1. Echocardiography done on 03/01/17 showed LVEF of 10% to 20% with severeglobal left ventricular systolic dysfunction grade 3-4, diastolicdysfunction, mild mitral valve regurgitation, moderate right ventricularhypertrophy with moderate right ventricular hypokinesis, moderate tricuspidregurgitation.2. Chest x-ray on 03/07/17 showed stable significant cardiomegaly withoutfailure. CT abdomen and pelvis on 02/28/17 showed 1.2 cm thick pericardialeffusion with cardiomegaly, ascites, anasarca, enlarged fatty liver withheterogeneous texture, infiltrative liver lesion not excluded,cholecystectomy, sigmoid diverticulosis.DISCHARGE PHYSICAL EXAMINATION AND LAB DATAPlease refer to my progress note from 03/10/17.HOSPITAL COURSE1. Ms. Penn is 56-year-old female who presented to emergency room withcomplaints of lower extremity swelling. Patient had bilateral swelling andascites on admission that was related to acute systolic congestive heartfailure. Patient was diuresed with IV Lasix. Cardiology followed thepatient for her diuretic management. Echocardiogram did show low ejectionfraction of 10% to 20%. Dr. Mcfarland is recommending to continue optimalmedical management for 3 months before considering a AICD placement. Ifejection fraction does not improve andcontinues to stay below 35% thenpatient will have AICD placement by Dr. Mcfarland after 3 months of optimalmanagement.2. For ascites and liver lesion, patient was seen by Dr. Malcolm. Herascites was related to congestive heart failure. Liver lesionwas thought estevan related to steatosis and congestive heart failure. Patient does not havecirrhosis. Per Dr. Malcolm, constipation was treated with lactulose.Patient is hep C antibody positive but there was no virus detected on PCR.Overall patient is doing much better and has diuresed remarkably during thishospitalization. Her edema was apparently 4+ on admission and is down to 1to 2+ in lower extremities as of today. She has been switched to oral Lasixby Cardiology and has been cleared for discharge.DISCHARGE DISPOSITIONHome.DISCHARGE CONDITIONStable.DISCHARGE INSTRUCTIONSFollow up with PCP in 3-7 days. Follow up with Dr. Pastora Flores in 3-[address] Malcolm in 3-7 days. Activity: Normal. Diet: Low fat,low cholesterol, 2 g sodium, consistent carbohydrate diet.TIME SPENTMore than 30 minutes.CODE STATUSFull code.Electronically Authenticated by:Sharon Montoya MD On 03/14/2017 04:52 PM CDT Sharon Montoya M.D.NK/ams NI: 03/10/2017 18:38TD: 03/11/2017 11:17CC:Adolph Domingo M.D.Olayiwola C. Olagbegi, M.D. documented in this encounter Discharge Disposition Disposition Code Departure Means Destination Discharge to home or self care documented in this encounter Consult Notes * Miscellaneous, Not In File - 03/01/2017 5:00 AM CDT CONSULTATION REPORTPatient: DAVIAN PENNRN: [id number] Service Date: 03/01/2017Account: [id number] Room No: [id number]: 1960 Patient Type: IPAttend.: Elly Martell M.D. Admit Date: 02/28/2017Consult.: Thelma Malcolm M.D. Disch. Date:GASTROENTEROLOGY CONSULTATIONCONSULTING Kat Malcolm, MDREFERRINGPHYSICIANFadee Abualrub, MDREASON FOR CONSULTATIONConstipation and abnormal liver function tests.Loretta is a 56-year-old woman, who is currently admitted to thespital because of shortness of breath. She has mental retardation andtraumatic brain injury as well as hypertension and atrial fibrillation. Shehas been worked up by wastewater treatment operator for pericardialeffusion. There is alsothe question of history of hepatitis C. I am asked to see her because shecomplains of abdominal pain and was found to have ascites. The patient had aCT scan of the abdomen and pelvis done that revealed fatty liver and possibleinfiltrative liver lesion.HISTORY OF PRESENTING ILLNESSThe patient is unable to provide a clear history because of her poor mentalstatus. However, she is complaining that she is quite constipated which isunusual for her. She complains of abdominal pain as well. She deniesvomiting.PAST MEDICAL HISTORYPositive for hypertension, congestive heart failure, atrial fibrillation,diabetes, mental retardation. She reportedly has chronic hepatitis C; indeedthe hepatitis C antibody was positive onMay 2016.HOME MEDICATIONS1. Amiodarone.2. Zantac.3. Nortriptyline.4. Oxybutynin.5. Carvedilol.6.Lasix.7. Lisinopril.8. Januvia.9. Eliquis.10. Humalog insulin.11. Senna.FAMILY HISTORYPositive for hypertension and diabetes.SOCIAL HISTORYShe denies tobacco, alcohol or drug use.REVIEW OF SYSTEMSGeneral: She denies fevers or chills.HEENT: Has no visual loss or hearing loss.Pulmonary: She has shortness of breath but denies cough.Cardiac: She denies chest pain.Gastrointestinal: She complains of abdominal pain and constipation.Genitourinary: She denies dysuria or hematuria.Musculoskeletal: She complains of generalized muscle aches and pains.Neurologic: She denies headache or seizures.Psychiatric: There is mental retardation.Neurologic: She denies seizures.Skin: She denies a rash.PHYSICAL EXAMWeight is 125.9 kg. Height is 5 feet 6 inches, BMI 44.8, temperature 98.2,blood pressure is 110/42.Head: Atraumatic.Eyes: Reveal no jaundice.Lungs: Reveal good air movement bilaterally.Cardiac: Exam revealed S1, S2. There is no S3, S4, gallop.Abdomen: Obese. There is no palpable organomegaly. Bowel sounds arepresent.Rectal: Exam is deferred.Lower Extremities: Reveal no calf tenderness or erythema.Skin: Reveals no rash.LABORATORY FINDINGSSodium 127, potassium 4.5, chloride 92, CO2 of 25, [id number]. Totalbilirubin 2.70, albumin 2.5, alkaline phosphatase 244. ProBNP is 911,prothrombin time is 26.9, INR is 2.28. Hematocrit 30, hemoglobin 9, plateletcount 438. CT scan of the abdomen and pelvis with contrast was reviewed withthe radiologist,Dr. Howe. The patient does have enlarged fatty liver whichis heterogeneous in texture which suggests the possibility of infiltrativelesion. She also has ascites.IMPRESSION1. Fatty liver associated with possible suspected liver lesions. Thepatientdoes have positive hepatitis C antibody. I would be concerned abouthepatoma. There is no focal lesion on the CT scan that was done.2. Constipation. This is worsening. It is unclear if the patient has everhad a screening colonoscopy. I reviewed thatreport on clinical desktop Jethro could not find any record of the colonoscopy.3. Hepatitis C antibody positive.4. Abnormal liver function tests. This is likely due to fatty liver andpossibly hepatitis C and cirrhosis.5. Other significant comorbiditiesare congestive heart failure, atrialfibrillation, pericardial effusion, morbid obesity, mental retardation.RECOMMENDATIONS1. The patient should have a CT-guided liver biopsy. However, I will awaitimprovement in her cardiac status since she does havepericardial effusionand arrhythmia and severe heart failure.2. Colonoscopy is also recommended for this patient. Again this will heldup until cardiac status is improved and we have clearance from thecardiologist.3. I will obtain a hepatitis C RNA quantitative assay to confirm that shetruly has hepatitis C.4. I will also request alpha-fetoprotein tumor marker.Thank you for the opportunity to assist in care of this patient.Electronically Authenticated by:Thelma Malcolm MD On 03/02/2017 02:54 PM CDT Thelma Malcolm M.D.MOSHE/john XE: 03/01/2017 16:45TD: 03/02/2017 07:23 * Miscellaneous, Not In File - 03/01/2017 5:00 AM CDT CONSULTATION REPORTPatient: ASHTYN PENNNMRN: [id number] Service Date: 03/01/2017Account: [id number] Room No: [id number]: 1960 Patient Type: IPAttend.: Paradise Zabala M.D. Admit Date: 02/28/2017Consult.: Jasper Mcfarland M.D. Disch. Date:CARDIOLOGY CONSULTCONSULTING PROVIDERSauBENEDICT DoradoEASON FOR CONSULTATIONPericardial effusion and CHF.HISTORY OF PRESENT ILLNESSThe patient is a 56-year-old female with past medical history ofmental retardation status post traumatic brain injury, hypertension andatrial fibrillation who presented to the emergency room with a tightabdominal pain that is exacerbated with coughing. History is obtained fromthe medical records due to patient's mentation status, she is a poorhistorian. According to the records, additional symptoms include shortnessof breath and bilateral lower extremity. Per the patient's sister who waspresent in the emergency room, the patient has been having constipation,however, she was taking some laxatives at home and yesterday she haddiarrhea. The patient was recently admitted on February 11, 2017 with shortness ofbreath and she was found to be in CHF exacerbation at that time. Patient wastreated and discharged home onthe . The patient was evaluated in theemergency room and a CT of the abdomen was done and a small pericardialeffusion was found along with ascites and anasarca.PAST MEDICAL HISTORYIncludes:1. Hypertension.2. Congestive heart failure.3. Atrial fibrillation.4. Diabetes mellitus.5. Insomnia.6. Mental retardation.7. Hepatitis C.ALLERGIESSULFA.HOME MEDICATIONS1. Amiodarone 200 mg p.o. daily.2. Zantac 150 mg p.o. b.i.d.3. Nortriptyline 10 mg p.o. daily at bedtime.4. Oxybutynin 5 mg p.o. daily.5. Carvedilol 25 mg b.i.d.6. Lasix 40 mg p.o. daily.7. Lisinopril 10 mg p.o. daily.8. Januvia 100 mg p.o. daily.9. Eliquis 5 mg p.o. daily.10. Humalog insulin 70/30, 18 units every morning 10 units every afternoon.11. Senna S 8.6-50 mg p.o. daily.FAMILY HISTORYSignificant for diabetes and hypertension.SOCIAL HISTORYThe patient denies any tobacco, alcohol or illicit drug use.REVIEW OF SYSTEMSUnable to obtain due to patient's mentation status.PHYSICAL EXAMCurrent Vital Signs: Temperature is 97.5, pulse 101, respirations 16, bloodpressure 127/75, oxygen saturation 93% on room air.Head: Atraumatic, normocephalic. Eyes are slightly jaundiced.Cardiovascular: S1, S2. No murmurs, rubs, or gallops heard.Respiratory: Lungs are diminished bilaterally. No rhonchi. No rales.Abdomen: Very distended and tight. The patient denies any painonpalpation. Bowel sounds are positive.Extremities: 2+ bilateral lower extremity present. Bilateral pedal pulsesare present.CURRENT LABORATORY DATAUrinalysis showed 3+ glucose, 1+ leuk esterase, trace of bacteria and 6 whitebloodcells. BNP is 911. White blood cells 6.9, hemoglobin 9.0, .0, sodium 127, potassium 4.5, carbon dioxide 25, BUN 19, glucose 378,creatinine 0.95, calcium 8.1, chloride 92, albumin 2.5, alk phos 244,bilirubin 2.7, INR 2.28, PT 26.9. Ammonia level less than 10. Troponin lessthan 0.03.CURRENT IMAGING DATAChest x-ray showed stable significant cardiomegaly without failure.Abdominal and pelvic CT scan showed a 1.2 cm thick pericardial effusion withcardiomegaly, ascites and anasarca, enlarged fatty liver with heterogenoustexture, infiltrative liver lesion not excluded. Cholecystectomy and sigmoiddiverticulosis. Last echo February 14 showed an ejection fraction of 30- 40%,moderate global left ventricular systolic dysfunction, global hypokinesisinvolving all segments of the LV, mild right ventricular hypertrophy, mildright ventricular hypokinesis, mild enlargement of the right ventricle,moderate enlargement of the left atrium and right atrium, normal structure ofthe mitral valve, mild mitral valve regurgitation, mild tricuspidregurgitation, small pericardial effusion, dilated IVC without respiratorycollapse consistent with elevated right atrial pressure greater than 15 mmHgASSESSMENT AND PLAN1. Pericardial effusion. We will check an echo to evaluate the severityeffusion.2. Chronic systolic congestive heart failure. BNP 911. 2+ bilateral lowerextremityedema. Per her, her last echo her ejection fraction was 30-40%with global hypokinesis and a mild tricuspid regurgitation. We will continueher Coreg and lisinopril, and IV Lasix.3. Abdominal pain and ascites, that management will be left up per Medicaland GI. Patient may benefit from albumin to assist with diuresis.4. Atrial fibrillation, rate iscontrolled on Coreg. She is on Eliquis ирина.c. We will hold her Eliquis for possible paracentesis.5. Hypertension. Blood pressure is soft. We will monitor.6. Diabetes mellitus. That management will be left per Medical.7. Hyponatremia is quite significant and this should improve with diuresis.Thank for allowing us to participate in the care of this patient. We willfollow along withyou. CARDIOLOGY CONSULT SUMMARYCONSULTINGPHYSICIANSaugloria Mcfarland MDThepatient was seen and examined at around 2:30 in room 918, bed 2.Patienthas mild to moderate sized pericardial effusion. She hassignificant liverfunction abnormality. LVEF is down today from30% to 40% to about 20%.Recommend gentle diuresis,GI assessment. Patient a poor historian due toher cognitiveproblems. I talked to the patient's sister, who is givingsomeinfo to the patient's condition. The patient apparently liveswith her mom.In several months the patient may need permanentdefibrillator implantationif her LVEF does not improve.At present it is okay to proceed with liver biopsy and paracentesis from cardiacstand point.I will discuss the case with Dr.Toniya Flores.Electronically Authenticated by:ABDIAS Rice On 03/01/2017 01:17 PM CDTElectronically Authenticated and Edited by:Jasper Mcfarland MD On 03/02/2017 05:25 PM CDT Jasper Mcfarland M.D.Dictated by: Jose Cool/john DM: 03/01/2017 07:39TD: 03/01/2017 11:20 * Miscellaneous, Not In File - 03/01/2017 5:00 AM CDT CONSULTATION REPORTPatient: ASHTYN PENNNMRN: [id number] Service Date: 03/01/2017Account: [id number] Room No: [id number]: 1960 Patient Type: IPAttend.: Elly Martell M.D. Admit Date: 02/28/2017Consult.: Jasper Mcfarland M.D. Disch. Date:CARDIOLOGY CONSULT SUMMARYCONSULTING PHYSICIANSkayleigh Mcfarland MDThe patient was seen and examined at around 2:30 in room 918, bed 2. Patienthas mild to moderate sized pericardial effusion. She has significant liverfunction abnormality. LVEF is down today from 30% to 40% to about 20%.Recommend gentlediuresis, GI assessment. Patient a poor historian due toher cognitive problems. I talked to the patient's sister, who is giving someinfo to the patient's condition. The patient apparently lives with her mom.In several months the patient may need permanent defibrillator implantation ifher LVEF does not improve.At present it is okay to proceed withliver biopsy and paracentesis from cardiac stand point.I willdiscuss the case with Dr. Pastora Flores.Electronically Authenticated and Edited by:Jasper Mcfarland MD On 03/02/2017 05:25 PM CDT Jasper Mcfarland M.D./john XJ: 03/01/2017 15:20TD: 03/01/2017 21:47 documented in this encounter Plan of Treatment Not on file documented as of this encounter Procedures Procedure Name Priority Date/Time Associated Diagnosis Comments GLUCOSE POC Routine 03/10/2017 12:50 PM CDT GLUCOSE POC Routine 03/10/2017 7:50 AM CDT EGFR Routine 03/10/2017 6:42 AM CDT BASIC METABOLIC PANEL Routine 03/10/2017 6:42 AM CDT GLUCOSE POC Routine 03/10/2017 3:56 AM CDT GLUCOSE POC Routine 03/09/2017 9:34 PM CDT GLUCOSE POC Routine 03/09/2017 5:47 PM CDT GLUCOSE POC Routine 03/09/2017 12:32 PM CDT GLUCOSE POC Routine 03/09/2017 7:34 AM CDT EGFR Routine 03/09/2017 5:07 AM CDT BASIC METABOLIC PANEL Routine 03/09/2017 5:07 AM CDT GLUCOSE POC Routine 03/09/2017 3:56 AM CDT GLUCOSE POC Routine 03/08/2017 9:17 PM CDT XR CHEST PA LATERAL 2 VIEWS Routine 03/07/2017 1:00 PM CDT SONOGRAPHIC BIOPSY Routine 03/03/2017 8: 19 PM CDT IMAGE GUIDED PARACENTESIS ABDOMEN Routine 03/03/2017 8:19 PM CDT SURGICAL PATHOLOGY Routine 03/03/2017 3: 29 PM CDT PRE-PRELIMINARY CT SCAN REPORT Routine 03/01/2017 12:[address] ABDOMEN PELVIS W CONTRAST Routine 03/01/2017 12:22 AM CDT XR CHEST 1 VIEW Routine 02/28/2017 11:54 PM CDT documented in this encounter Results * Glucose POC (03/10/2017 12:50 PM CDT) Glucose, POC 140 70 - 199 mg/dL [facility] Blood specimen (specimen) 03/10/2017 12:50 PM CDT 03/10/2017 12:50 PM CDT Elly Martell MD POINT OF CARE TEST ORDERABLES Final Result Performing Organization Address [facility] Co de Phone Number [facility] [phone] [address] [place] [address] * Glucose POC (03/10/2017 7:50 AM CDT) Glucose, POC 118 70 - 199 mg/dL [facility] Blood specimen (specimen) 03/10/2017 7:50 AM CDT 03/10/2017 7:50 AM CDT Elly Martell MD POINT OF CARE TEST ORDERABLES Final Result Performing Organization Address [facility] Co de Phone Number [facility] [phone] [address] [place] [address] * eGFR (03/10/2017 6:42 AM CDT) eGFR 72 mL/min/1.7 3 m2 [facility] Comment: Interpretive Data Reference Interval Normal ?>/= 90 mL/min/1.73m2 Mildly decreased* ? 60 - 89 mL/min/1.73m2 Mildly to moderately decreased ?45 - 59 mL/min/1.73m2 Moderately to severely decreased ??30 - 44 mL/min/1.73m2 Severely decreased ?15 - 29 mL/min/1.73m2 Kidney Failure ?< 15 ??mL/min/1.73m2 *Relative to young adult level If -[place] Islander multiply value by 1.16. Estimated glomerular filtration rate is determined by the CKD-EPI equation recommended by the National Kidney Foundation (KDIGO 2012 Clinical Practice Guideline for the Evaluation and Management of Chronic Kidney Disease. Kidney Intnl Suppl Oct 2012;3:1). The CKD-EPI equation should not be used for patients with unstable renal function and has not been validated in children and those over 70. Current interpretive data was last reviewed 2016. Blood specimen (specimen) 03/10/2017 6:42 AM CDT 03/10/2017 7:25 AM CDT us Sharon Montoya MD LAB BLOOD ORDERABLES Final Resu lt [facility] [id number] [address] Department of Laboratories [place] [phone] * (ABNORMAL) Basic metabolic panel (03/10/2017 6:42 AM CDT) Sodium 130(L) 135 - 145 mmol/L [facility] Potassium, pl 3.7 3.5 - 5.1 mmol/L [facility] Chloride 92(L) 100 - 114 mmol/L [facility] CO2 27 22 - 32 mmol/L [facility] BUN 18 8 - 24 mg/dL [facility] Glucose 129 70 - 199 mg/dL [facility] Creatinine 0.90 0.60 - 1.30 mg/dL [facility] Calcium 8.5 8.4 - 10.5 mg/dL [facility] Anion gap 15 8 - 16 mmol/L [facility] Blood specimen (specimen) 03/10/2017 6:42 AM CDT 03/10/2017 7:25 AM CDT us Sharon Montoya MD LAB BLOOD ORDERABLES Final Resu lt Performing Organization Address [facility] Co de Phone Number [facility] [phone] [address] [facility] [place] [address] * Glucose POC (03/10/2017 3:56 AM CDT) Glucose, POC 170 70 - 199 mg/dL [facility] Blood specimen (specimen) 03/10/2017 3:56 AM CDT 03/10/2017 3:56 AM CDT Elly Martell MD POINT OF CARE TEST ORDERABLES Final Result Performing Organization Address [facility] Co de Phone Number [facility] [phone] [address] [place] [address] * (ABNORMAL) Glucose POC (03/09/2017 9:34 PM CDT) Glucose, POC 305(H) 70 - 199 mg/dL [facility] Blood specimen (specimen) 03/09/2017 9:34 PM CDT 03/09/2017 9:34 PM CDT Elly Martell MD POINT OF CARE TEST ORDERABLES Final Result Performing Organization Address [facility] Co de Phone Number [facility] [phone] [address] [place] [address] * (ABNORMAL) Glucose POC (03/09/2017 5:47 PM CDT) Glucose, POC 288(H) 70 - 199 mg/dL [facility] Blood specimen (specimen) 03/09/2017 5:47 PM CDT 03/09/2017 5:47 PM CDT Elly Martell MD POINT OF CARE TEST ORDERABLES Final Result Performing Organization Address [facility] Co de Phone Number [facility] [phone] [address] [place] [address] * (ABNORMAL) Glucose POC (03/09/2017 12:32 PM CDT) Glucose, POC 263(H) 70 - 199 mg/dL [facility] Blood specimen (specimen) 03/09/2017 12:32 PM CDT 03/09/2017 12:32 PM CDT Elly Martell MD POINT OF CARE TEST ORDERABLES Final Result Performing Organization Address [facility] de Phone Number [facility] [phone] [address] [facility] [place] [address] * Glucose POC (03/09/2017 7:34 AM CDT) Pathologist [facility] [place] Glucose, POC 109 70 - 199 mg/dL [facility] Blood specimen (specimen) 03/09/2017 7:34 AM CDT 03/09/2017 7:34 AM CDT Elly Martell MD POINT OF CARE TEST ORDERABLES Final Result Performing Organization Address [facility] de Phone Number [facility] [phone] [address] [facility] [place] [address] * eGFR (03/09/2017 5:07 AM CDT) eGFR 73 mL/min/1.7 3 m2 [facility] Comment: Interpretive Data Reference Interval Normal ?>/= 90 mL/min/1.73m2 Mildly decreased* ? 60 - 89 mL/min/1.73m2 Mildly to moderately decreased ?45 - 59 mL/min/1.73m2 Moderately to severely decreased ??30 - 44 mL/min/1.73m2 Severely decreased ?15 - 29 mL/min/1.73m2 Kidney Failure ?< 15 ??mL/min/1.73m2 *Relative to young adult level If -[place] multiply value by 1.16. Estimated glomerular filtration rate is determined by the CKD-EPI equation recommended by the National Kidney Foundation (KDIGO 2012 Clinical Practice Guideline for the Evaluation and Management of Chronic Kidney Disease. Kidney Intnl Suppl Oct 2012;3:1). The CKD-EPI equation should not be used for patients with unstable renal function and has not been validated in children and those over 70. Current interpretive data was last reviewed 2016. Blood specimen (specimen) 03/09/2017 5:07 AM CDT 03/09/2017 5:28 AM CDT Sharon Montoya MD LAB BLOOD ORDERABLES Final Resu lt Performing Organization Address City/[facility] Co de Phone Number OLAMIDE CAR [address] [employer] [place] [address] * (ABNORMAL) Basic metabolic panel (03/09/2017 5:07 AM CDT) [facility] Sodium 128(L) 135 - 145 mmol/L CERNER Potassium, pl 3.5 3.5 - 5.1 mmol/L CERN[facility] Chloride 90(L) 100 - 114 mmol/L CERNER CH CO2 28 22 - 32 mmol/L [facility] BUN 14 8 - 24 mg/dL [facility] Glucose 122 70 - 199 mg/dL [facility] Creatinine 0.89 0.60 - 1.30 mg/dL CERNER Calcium 8.3(L) 8.4 - 10.5 mg/dL CERN[facility] Anion gap 14 8 - 16 mmol/L CERNER Blood specimen (specimen) 03/09/2017 5:07 AM CDT 03/09/2017 5:26 AM CDT Sharon Montoya MD LAB BLOOD ORDERABLES Final Resu lt Performing Organization Address City/[facility]/ZIP Co de Phone Number OLAMIDE CAR [address] [employer] [place] [address] * Glucose POC (03/09/2017 3:56 AM CDT) Glucose, POC 154 70 - 199 mg/dL CERNER Blood specimen (specimen) 03/09/2017 3:56 AM CDT 03/09/2017 3:56 AM CDT Elly Martell MD POINT OF CARE TEST ORDERABLES Final Result Performing Organization Address [facility] de Phone Number OLAMIDE [phone] [employer] [place] [address] * Glucose POC (03/08/2017 9:17 PM CDT) Glucose, POC 194 70 - 199 mg/dL CERNER Blood specimen (specimen) 03/08/2017 9:17 PM CDT 03/08/2017 9:17 PM CDT Elly Martell MD POINT OF CARE TEST ORDERABLES Final Result Performing Organization Address [facility] Phone Number OLAMIDE [phone] [employer] Department [place] [address] * XR Chest Pa Lateral 2 Vw (03/07/2017 1:00 PM CDT) Anatomical Region Laterality Modality Body, Chest N/A Radiographic Elena ging 03/07/2017 1:00 PM CDT Narrative 03/07/2017 1:00 PM CDT DATE OF EXAM: ??Mar 07 2017 ??8:00AM Acc#: ??[id number] ??EDX [id number] - XR Chest 2 Views ?? DIAGNOSIS: ??PERICARDIAL EFFUSION / LIVER FAILURE CLINICAL HISTORY: ?? subjective sensation of shortness of breath RESULT: Examination: XR Chest 2 Views Comparison: 02/28/2017 HISTORY: 56-year-old woman shortness of breath swelling mild jaundice pitting edema FINDINGS: There is continued cardiomegaly without evidence of failure. ??No infiltrates, fluid or pneumothorax. IMPRESSION: Stable significant cardiomegaly without failure. Electronically signed by: Andrea Lopez M.D. ? HEEL CASER: ??PSC TRANSCRIBE DATE/TIME: ??Mar 07 2017 12:42P RADIOLOGIST: ??ANDREA LOPEZ M.D. ??READ ON: ??Mar 07 2017 12:46P ORDERING DR: ELLY MARTELL M.D. THIS DOCUMENT HAS BEEN ELECTRONICALLY SIGNED BY: ??JOHN Johnston, ANDREA ??ON: ??Mar 07 2017 12:42P Attending: ??JAYSHREE, ??ELLY Requesting: ??JAYSHREE, ??ELLY Requesting Fax: ??[phone] Attending Fax: ??[phone] Attending ID: ??[id number] Requesting ID: ??[id number] Report To 1 ID: ??[id number] Report To 1 Name: ??ABU AL RUB, ??FADEE Report To 1 FAX: ??[phone] Report To 2 ID: ?? Report To 2 Name: ??, ?? Report To 2 FAX: ??-- NextGen Order #: ?? Procedure Note Miscellaneous, Not In File / Provider, MD Nica - 03/08/2017 DATE OF EXAM: Mar 07 2017 8:00AM Acc#: [id number] EDX [id number] - XR Chest 2 Views DIAGNOSIS: PERICARDIAL EFFUSION / LIVER FAILURE CLINICAL HISTORY: subjective sensation of shortness of breath RESULT: Examination: XR Chest 2 Views Comparison: 02/28/2017 HISTORY: 56-year-old woman shortness of breath swelling mild jaundice pitting edema FINDINGS: There is continued cardiomegaly without evidence of failure. No infiltrates, fluid or pneumothorax. IMPRESSION: Stable significant cardiomegaly without failure. Electronically signed by: Andrea Lopez M.D. HEEL CASER: PSC TRANSCRIBE DATE/TIME: Mar 07 2017 12:42P RADIOLOGIST: ANDREA LOPEZ M.D. READ ON: Mar 07 2017 12:46P ORDERING DR: ELLY MARTELL M.D. THIS DOCUMENT HAS BEEN ELECTRONICALLY SIGNED BY: ANDREA LOPEZ M.D. ON: Mar 07 2017 12:42P Attending: ELLY MARTELL Requesting: ELLY MARTELL Requesting Attending Attending ID: [id number] Requesting ID: [id number] Report To 1 ID: [id number] Report To 1 Name: PARADISE OLSON Report To 1 FAX: [phone] Report To 2 ID: Report To 2 Name: , Report To 2 FAX: -- NextGen Order #: us Not In File Miscellaneous IMG XR PROCEDURES Ayanna l Result * SONOGRAPHIC BIOPSY (03/03/2017 8:19 PM CDT) Anatomical Region Laterality Modality N/A Ultrasound 03/03/2017 8:19 PM CDT Narrative 03/03/2017 8:19 PM CDT DATE OF EXAM: ??Mar 03 2017 ??3:19PM Acc#: ??[id number] ??GABRIEL [id number] - Image Guided Biopsy ?? DIAGNOSIS: ??PERICARDIAL EFFUSION / LIVER FAILURE CLINICAL HISTORY: ?? Infiltrative liver dz RESULT: PROCEDURE: Ultrasound-guided random core liver biopsy HISTORY: 56-year-old female with liver failure, pericardial effusion, anasarca, and ascites demonstrated on CT of the abdomen/pelvis of 02/28/2017. RADIOLOGIST: Dr. Whitfield ANESTHESIA: Local lidocaine 1% as well as IV conscious sedation utilizing 1 mg of Versed and 50 mcg of fentanyl intravenously provided by a specifically trained radiology nurse under the direct supervision of Dr. Whitfield. TECHNIQUE: The risks, benefits, and alternatives of the procedure were explained to the patient who gave informed consent. ??[place] protocol was followed for the procedure in order to verify the patient's identity and the planned procedure. Preliminary ultrasonography of the right hepatic lobe demonstrated a ultrasonographic window for random core liver biopsy in the inferior right hepatic lobe which was targeted for biopsy. ??The planned skin access site was marked with a marker utilizing ultrasonographic guidance. The planned skin access site was sterilely prepped and draped utilizing 2% chlorhexidine solution and sterile drapes. Maximum sterile barrier technique was utilized including the use of a cap, gown, mask, hand washing, and gloves. ??Local anesthesia was achieved with lidocaine 1%. ??A tiny dermatotomy was created. ??A 17-gauge trocar was then advanced into the inferior right hepatic lobe under direct ultrasound guidance. ??An 18-gauge Bard core biopsy needle was then used to obtain several core specimens of the inferior right hepatic lobe under direct ultrasound guidance. ??The samples were placed in a specimen cup and submitted to pathology. ??The needle was removed. ??A Gelfoam slurry was injected through the trocar during withdrawal of the trocar from the patient for hemostasis. ??Manual compression was also employed for hemostasis. ??A sterile dressing was applied to the puncture site. The patient tolerated the procedure well without immediate postprocedural complications. ??The patient was discharged from the department in stable condition. IMPRESSION: Successful, uncomplicated ultrasound-guided random core liver biopsy. Pathology is pending. Electronically signed by: Gabino Whitfield M.D. ? HEEL CASER: ??PSC TRANSCRIBE DATE/TIME: ??Mar 03 2017 ??4:59P RADIOLOGIST: ??GABINO WHITFIELD M.D. ??READ ON: ??Mar 03 2017 ??5:03P ORDERING DR: THELMA MALCOLM M.D. THIS DOCUMENT HAS BEEN ELECTRONICALLY SIGNED BY: ??ROSEANN Johnston, GABINO ??ON: ??Mar 03 2017 ??4:59P Attending: ??JAYSHREE, ??ELLY Requesting: ??DIMITRI, ??THELMA Requesting Fax: ??[phone] Attending Fax: ??[phone] Attending ID: ??[id number] Requesting ID: ??[id number] Report To 1 ID: ??[id number] Report To 1 Name: ??THADDEUS FONTANEZ, ??FADEE Report To 1 FAX: ??[phone] Report To 2 ID: ?? Report To 2 Name: ??, ?? Report To 2 FAX: ??-- NextGen Order #: ?? Procedure Note Miscellaneous, Not In File / Provider, MD Nica - 03/12/2017 DATE OF EXAM: Mar 03 2017 3:19PM Acc#: [id number] GABRIEL [id number] - Image Guided Biopsy DIAGNOSIS: PERICARDIAL EFFUSION / LIVER FAILURE CLINICAL HISTORY: Infiltrative liver dz RESULT: PROCEDURE: Ultrasound-guided random core liver biopsy HISTORY: 56-year-old female with liver failure, pericardial effusion, anasarca, and ascites demonstrated on CT of the abdomen/pelvis of 02/28/2017. RADIOLOGIST: Dr. Whitfield ANESTHESIA: Local lidocaine 1% as well as IV conscious sedation utilizing 1 mg of Versed and 50 mcg of fentanyl intravenously provided by a specifically trained radiology nurse under the direct supervision of Dr. Whitfield. TECHNIQUE: The risks, benefits, and alternatives of the procedure were explained to the patient who gave informed consent. [place] protocol was followed for the procedure in order to verify the patient's identity and the planned procedure. Preliminary ultrasonography of the right hepatic lobe demonstrated a ultrasonographic window for random core liver biopsy in the inferior right hepatic lobe which was targeted for biopsy. The planned skin access site was marked with a marker utilizing ultrasonographic guidance. The planned skin access site was sterilely prepped and draped utilizing 2% chlorhexidine solution and sterile drapes. Maximum sterile barrier technique was utilized including the use of a cap, gown, mask, hand washing, and gloves. Local anesthesia was achieved with lidocaine 1%. A tiny dermatotomy was created. A 17-gauge trocar was then advanced into the inferior right hepatic lobe under direct ultrasound guidance. An 18-gauge Bard core biopsy needle was then used to obtain several core specimens of the inferior right hepatic lobe under direct ultrasound guidance. The samples were placed in a specimen cup and submitted to pathology. The needle was removed. A Gelfoam slurry was injected through the trocar during withdrawal of the trocar from the patient for hemostasis. Manual compression was also employed for hemostasis. A sterile dressing was applied to the puncture site. The patient tolerated the procedure well without immediate postprocedural complications. The patient was discharged from the department in stable condition. IMPRESSION: Successful, uncomplicated ultrasound-guided random core liver biopsy. Pathology is pending. Electronically signed by: Gabino Whitfield M.D. HEEL CASER: CANELO TRANSCRIBE DATE/TIME: Mar 03 2017 4:59P RADIOLOGIST: GABINO WHITFIELD M.D. READ ON: Mar 03 2017 5:03P ORDERING DR: THELMA MALCOLM M.D. THIS DOCUMENT HAS BEEN ELECTRONICALLY SIGNED BY: GABINO WHITFIELD M.D. ON: Mar 03 2017 4:59P Attending: ELLY MARTELL Requesting: THELMA MALCOLM Requesting Attending Attending ID: [id number] Requesting ID: [id number] Report To 1 ID: [id number] Report To 1 Name: PARADISE OLSON Report To 1 FAX: [phone] Report To 2 ID: Report To 2 Name: , Report To 2 FAX: -- NextGen Order #: us Not In File Miscellaneous IMG US PROCEDURES Ayanna l Result * Paracentesis Abdomen W Imaging (03/03/2017 8:19 PM CDT) Anatomical Region Laterality Modality Body N/A X-Ray Angiograph y 03/03/2017 8:19 PM CDT Narrative 03/03/2017 8:19 PM CDT DATE OF EXAM: ??Mar 03 2017 ??3:19PM Acc#: ??[id number] ??GABRIEL 0188 - IR Abd. Paracentesis w/ imaging ?? DIAGNOSIS: ??PERICARDIAL EFFUSION / LIVER FAILURE CLINICAL HISTORY: ?? tense ascites RESULT: PROCEDURE: Attempted IR guided paracentesis HISTORY: 56-year-old female with liver failure, pericardial effusion, anasarca, and ascites demonstrated on CT of the abdomen and pelvis performed on 02/28/2017. RADIOLOGIST: Dr. Whitfield ANESTHESIA: None TECHNIQUE: The risks, benefits, and alternatives of the procedure were explained to the patient who gave informed consent. ??[place] protocol was followed for the procedure in order to verify the patient's identity and the planned procedure. Preliminary ultrasonography of the abdomen demonstrated no drainable or accessible ascites for sampling. ??The previously demonstrated small areas of ascites scattered in the abdomen and pelvis on CT of the abdomen/pelvis of 02/28/2017 may have diminished and/or resolved. Therefore, no paracentesis could be safely performed. ??Attention was then turned towards performing a random core liver biopsy. ??For further details, please refer to the separate ultrasound-guided random liver core biopsy report of the same date. The patient tolerated the procedure well without immediate postprocedural complications. ??The patient was discharged from the department in stable condition. IMPRESSION: Preliminary ultrasonography demonstrated no drainable/accessible ascites for sampling. Electronically signed by: Gabino Whitfield M.D. ? HEEL CASER: ??PSC TRANSCRIBE DATE/TIME: ??Mar 03 2017 ??4:55P RADIOLOGIST: ??GABINO WHITFIELD M.D. ??READ ON: ??Mar 03 2017 ??4:59P ORDERING DR: THELMA MALCOLM M.D. THIS DOCUMENT HAS BEEN ELECTRONICALLY SIGNED BY: ??ROSEANN Johnston, GABINO ??ON: ??Mar 03 2017 ??4:55P Attending: ??JAYSHREE, ??ELLY Requesting: ??DIMITRI, ??THELMA Requesting Fax: ??[phone] Attending Fax: ??[phone] Attending ID: ??[id number] Requesting ID: ??[id number] Report To 1 ID: ??[id number] Report To 1 Name: ??THADDEUS MTZ RUB, ??FADEE Report To 1 FAX: ??[phone] Report To 2 ID: ?? Report To 2 Name: ??, ?? Report To 2 FAX: ??-- NextGen Order #: ?? Procedure Note Miscellaneous, Not In File - 03/06/2017 DATE OF EXAM: Mar 03 2017 3:19PM Acc#: [id number] GABRIEL 0188 - IR Abd. Paracentesis w/ imaging DIAGNOSIS: PERICARDIAL EFFUSION / LIVER FAILURE CLINICAL HISTORY: tense ascites RESULT: PROCEDURE: Attempted IR guided paracentesis HISTORY: 56-year-old female with liver failure, pericardial effusion, anasarca, and ascites demonstrated on CT of the abdomen and pelvis performed on 02/28/2017. RADIOLOGIST: Dr. Whitfield ANESTHESIA: None TECHNIQUE: The risks, benefits, and alternatives of the procedure were explained to the patient who gave informed consent. [place] protocol was followed for the procedure in order to verify the patient's identity and the planned procedure. Preliminary ultrasonography of the abdomen demonstrated no drainable or accessible ascites for sampling. The previously demonstrated small areas of ascites scattered in the abdomen and pelvis on CT of the abdomen/pelvis of 02/28/2017 may have diminished and/or resolved. Therefore, no paracentesis could be safely performed. Attention was then turned towards performing a random core liver biopsy. For further details, please refer to the separate ultrasound-guided random liver core biopsy report of the same date. The patient tolerated the procedure well without immediate postprocedural complications. The patient was discharged from the department in stable condition. IMPRESSION: Preliminary ultrasonography demonstrated no drainable/accessible ascites for sampling. Electronically signed by: Gabino Whitfield M.D. HEEL CASER: CANELO TRANSCRIBE DATE/TIME: Mar 03 2017 4:55P RADIOLOGIST: GABINO WHITFIELD M.D. READ ON: Mar 03 2017 4:59P ORDERING DR: THELMA MALCOLM M.D. THIS DOCUMENT HAS BEEN ELECTRONICALLY SIGNED BY: GABINO WHITFIELD M.D. ON: Mar 03 2017 4:55P Attending: ELLY MARTELL Requesting: THELMA MALCOLM Requesting Attending Attending ID: [id number] Requesting ID: [id number] Report To 1 ID: [id number] Report To 1 Name: PARADISE OLSON Report To 1 FAX: [phone] Report To 2 ID: Report To 2 Name: , Report To 2 FAX: -- NextGen Order #: us Not In File Miscellaneous IMG IR PROCEDURES Ayanna l Result * Surgical pathology (03/03/2017 3:29 PM CDT) 03/03/2017 3:29 PM CDT 03/03/2017 3:29 PM CDT [facility] - 03/04/2017 5:42 PM CDT [facility] Department of Pathology [address] [place], [place] [id number] Final Report ?Patient Name: LORETTA PENN Address: [address] Service: Medical ??[place], [place] ??63 Location: W Taken: 03/03/2017 Gender: F Received 03/03/2017 : 1960 (Age: 56) Hospital #: [id number] Accessioned: 03/03/2017 ?? Patient Type: CH IP Reported 03/04/2017 Physician(s): Vickie Eldridge Dr., M.D. ?? Diagnosis: Liver, needle core biopsy: ? - Chronic hepatitis consistent with hepatitis C, portal/lobular inflammatory activity grade 1, fibrosis stage I - Architectural changes consistent with congestive heart failure - Steatosis, mild - Negative for neoplasia/malignancy ?? Jocelyn Cervantes M.D. ??Report Electronically Reviewed and Signed Out By ??Jocelyn Cervantes M.D. ??03/04/2017 17:42:02 Specimen(s) Received: A: Liver Microscopic Description: Note is made of the patient's positive hepatitis C screening and pericardial effusion. ??The liver core biopsy fragments demonstrate relatively intact parenchymal architecture with prominent sinus dilation, consistent with congestive heart failure. Hepatic parenchyma demonstrates minimal steatosis, predominantly microvesicular type, involving less than 20% of hepatic parenchyma. ??Minimal-mild hepatocellular unrest is noted. ??Acidophil bodies are rarely seen. ??Scattered cells have cytoplasmic pigment consistent with lipofuscin (negative iron stain). ??Reticulin stain demonstrate relatively intact architecture. ??Trichrome stain is somewhat prominent around portal tracts, however pericellular fibrosis and bridging architecture are absent. ??PAS stain with diastase treatment does not demonstrate significant PAS resistant globules. ??There is no evidence of malignancy in material examined Clinical History: Pericardial effusion and liver failure. Procedure: Liver biopsy. Gross Description: The container is labeled liver . ??It is multiple, 0.1 cm in diameter cores of lundberg brown tissue ranging in length from 0.9 to 1.5 cm's. ??Entirely submitted in one cassette ??Eric Jesus R.N., P.A./Jocelyn Cervantes M.D. The performance characteristics of some immunohistochemical stains, fluorescence in-situ hybridization tests and immunophenotyping by flow cytometry cited in this report (if any) were determined by the Surgical Pathology Department at [facility] as part of an ongoing software quality specialist program and in compliance with federally mandated regulations drawn from the Clinical Laboratory Improvement Act of 1988 (CLIA '88). ??Some of these tests rely on the use of analyte specific reagents and are subject to specific labeling requirements by the US Food and Drug Administration. ??Such diagnostic tests may only be performed in a facility that is certified by the Department of Health and Human Services as a high complexity laboratory under CLIA '88. The FDA has determined that such clearance or approval is not necessary. ??This test is used for clinical purposes. ??It should not be regarded as investigational or for research. ??Nevertheless, federal rules concerning the medical use of analyte specific reagents require that the following disclaimer be attached to the report: This test was developed and its performance characteristics determined by the Surgical Pathology Department [facility]. ??It has not been cleared or approved by the U. S. Food and Drug Administration. us Notinfile Unknown LAB PATHOLOGY ORDERABLES Final Result [facility] [employer] [facility] [address] [place] [address] * CT Abdomen Pelvis W Contrast (03/01/2017 12:22 AM CDT) Anatomical Region Laterality Modality Body N/A Computed Tomogra phy 03/01/2017 12:2 2 AM CDT Narrative 03/01/2017 12:22 AM CDT DATE OF EXAM: ??Feb 28 2017 ??7:22PM Acc#: ??[id number] ??ECT 0074 - CT Abd/Pel W ?? DIAGNOSIS: ??STOMACH PAIN CLINICAL HISTORY: ?? Pain RESULT: EXAMINATION: CT Abd/Pel W dated 02/28/2017 7:22 PM HISTORY: 56-year-old woman abdominal pain shortness of breath abdominal swelling TECHNIQUE: Post contrast study using 94 mL of Optiray 350 FINDINGS: No priors. ??[employer] radiograph demonstrates nonobstructive bowel gas pattern lung bases demonstrate areas of atelectasis at the left lung base. ??No fluid or confluent infiltrates. ??There is cardiomegaly. Pericardial fluid is present, the thickest portion along the right heart border measuring 1.2 cm. ??There is a heterogeneous texture to the liver the background of diffuse fatty infiltration. ??Liver size is mildly enlarged with a maximum length of 22 cm. ??The spleen is small in size. ??Normal adrenal glands. ??Pancreas is normal. ??Surgical absence of the gallbladder. ??Kidneys demonstrate normal nephrograms without hydronephrosis mass effect or calculus formation. ??There is ascites particularly in the subhepatic and perihepatic location. ??No free air is seen. ??There is diffuse anasarca in the soft tissues. This has a somewhat unusual distribution being more prevalent anteriorly than posteriorly. ??Pelvic ascites of moderate severity. Urinary bladder is smooth in outline. ??Uterus normal in size. Diverticulosis of the sigmoid colon is seen. ??Coronal images demonstrate a nonobstructive bowel gas pattern. ??Lumbar spine demonstrates no acute findings. IMPRESSION: 1.2 CM THICK PERICARDIAL EFFUSION WITH CARDIOMEGALY. ??ASCITES AND ANASARCA. ??ENLARGED FATTY LIVER WITH HETEROGENEOUS TEXTURE. INFILTRATIVE LIVER LESION NOT EXCLUDED. ??CHOLECYSTECTOMY. ??SIGMOID DIVERTICULOSIS. Electronically signed by: Foster Howe M.D. ? HEEL CASER: ??PSC TRANSCRIBE DATE/TIME: ??Feb 28 2017 ??7:29P RADIOLOGIST: ??FOSTER HOWE M.D. ??READ ON: ??Feb 28 2017 ??7:33P ORDERING DR: MARLENE ORNELAS M.D. THIS DOCUMENT HAS BEEN ELECTRONICALLY SIGNED BY: ??LIGIA Johnston, FOSTER ??ON: ??Feb 28 2017 ??7:29P Attending: ??CECI, ??MARLENE Requesting: ??CECI, ??MARLENE Requesting Fax: ??-- Attending Fax: ??-- Attending ID: ??[id number] Requesting ID: ??[id number] Report To 1 ID: ?? Report To 1 Name: ??, ?? Report To 1 FAX: ??-- Report To 2 ID: ?? Report To 2 Name: ??, ?? Report To 2 FAX: ??-- NextGen Order #: ?? Procedure Note Miscellaneous, Not In File / Provider, MD Nica - 03/06/2017 DATE OF EXAM: Feb 28 2017 7:22PM Acc#: [id number] ECT 0074 - CT Abd/Pel W DIAGNOSIS: STOMACH PAIN CLINICAL HISTORY: Pain RESULT: EXAMINATION: CT Abd/Pel W dated 02/28/2017 7:22 PM HISTORY: 56-year-old woman abdominal pain shortness of breath abdominal swelling TECHNIQUE: Post contrast study using 94 mL of Optiray 350 FINDINGS: No priors. [employer] radiograph demonstrates nonobstructive bowel gas pattern lung bases demonstrate areas of atelectasis at the left lung base. No fluid or confluent infiltrates. There is cardiomegaly. Pericardial fluid is present, the thickest portion along the right heart border measuring 1.2 cm. There is a heterogeneous texture to the liver the background of diffuse fatty infiltration. Liver size is mildly enlarged with a maximum length of 22 cm. The spleen is small in size. Normal adrenal glands. Pancreas is normal. Surgical absence of the gallbladder. Kidneys demonstrate normal nephrograms without hydronephrosis mass effect or calculus formation. There is ascites particularly in the subhepatic and perihepatic location. No free air is seen. There is diffuse anasarca in the soft tissues. This has a somewhat unusual distribution being more prevalent anteriorly than posteriorly. Pelvic ascites of moderate severity. Urinary bladder is smooth in outline. Uterus normal in size. Diverticulosis of the sigmoid colon is seen. Coronal images demonstrate a nonobstructive bowel gas pattern. Lumbar spine demonstrates no acute findings. IMPRESSION: 1.2 CM THICK PERICARDIAL EFFUSION WITH CARDIOMEGALY. ASCITES AND ANASARCA. ENLARGED FATTY LIVER WITH HETEROGENEOUS TEXTURE. INFILTRATIVE LIVER LESION NOT EXCLUDED. CHOLECYSTECTOMY. SIGMOID DIVERTICULOSIS. Electronically signed by: Foster Howe M.D. HEEL CASER: PSC TRANSCRIBE DATE/TIME: Feb 28 2017 7:29P RADIOLOGIST: FOSTER HOWE M.D. READ ON: Feb 28 2017 7:33P ORDERING DR: MARLENE ORNELAS M.D. THIS DOCUMENT HAS BEEN ELECTRONICALLY SIGNED BY: FOSTER HOWE M.D. ON: Feb 28 2017 7:29P Attending: MARLENE ORNELAS Requesting: MARLENE ORNELAS Requesting Fax: -- Attending Fax: -- Attending ID: [id number] Requesting ID: [id number] Report To 1 ID: Report To 1 Name: , Report To 1 FAX: -- Report To 2 ID: Report To 2 Name: , Report To 2 FAX: -- NextGen Order #: us Not In File Miscellaneous IMG CT PROCEDURES Ayanna l Result * PRE-PRELIMINARY CT SCAN REPORT (03/01/2017 12:22 AM CDT) Anatomical Region Laterality Modality N/A Computed Tomogra phy 03/01/2017 12:2 2 AM CDT Narrative 03/01/2017 12:22 AM CDT ED STAT IMAGING PRELIMINARY RESULT [facility] PATIENT: ?? LORETTA ??JENNIFER MR#: ?? [id number] : 1960 AGE / SEX: ?? 56Y / F Procedure: ECT 0074 - CT Abd/Pel W Exam Date: ?? Feb 28 2017 ??7:22PM ?Loc: [id number] Acc#: ?? [id number] Pt_Class at Time of Procedure: E Current Pt Class and Location: ?? E ?ERD Requesting Location: [facility] Priority: ??STAT Reason: ?? Pain Order Comments: Rosa Dr: ?? MARLENE ??CECI ??MAgapito Preliminary Reading Doctor: ??FOSTER HOWE M.D., CHIEF RADIOLOGIST Completed on: ??Feb 28 2017 ??7:29PM Call Results Info: Patient Waiting: Call Report to: Phone: Fax: Comments: ----- Please be advised this is only a preliminary report. If at time of image reporting a significant discrepancy or new finding is noted it will be communicated to the Emergency Department via the ED discrepancy pathway. READ ANY COMMENTS BELOW Findings: ? Abnormal Comments Line 1: ?1.2 CM THICK PERICARDIAL EFFUSION WITH CARDIOMEGALY. ??ASCITES AND ANASARCA. ??ENLARGED FATTY LIVER WITH HETEROGENEOUS TEXTURE. ??INFILTRATIVE LIVER LESION NOT EXCLUDED. ??CHOLECYSTECTOMY. ??SIGMOID DIVERTICULOSIS Comments Line 2: Comments Line 3: Comments Line 4: Comments Line 5: Procedure Note Miscellaneous, Not In File / Provider, MD Nica - 03/06/2017 ED STAT IMAGING PRELIMINARY RESULT [facility] PATIENT: LORETTA PENN MR#: [id number] : 1960 AGE / SEX: 56Y / F Procedure:ECT 0074 - CT Abd/Pel W Exam Date: Feb 28 2017 7:22PM Loc:[id number] Acc#: [id number] Pt_Class at Time of Procedure: E Current Pt Class and Location: E ERD Requesting Location: [facility] Priority: STAT Reason: Pain Order Comments: Ord Dr: MARLENE ORNELAS M.D. Preliminary Reading Doctor: FOSTER HOWE M.D., CHIEF RADIOLOGIST Completed on: Feb 28 2017 7:29PM Call Results Info: Patient Waiting: Call Report to: Phone: Fax: Comments: ----- Please be advised this is only a preliminary report. If at time of imagereporting a significant discrepancy or new finding is noted it will becommunicated to the Emergency Department via the ED discrepancy pathway. READ ANY COMMENTS BELOW Findings: Abnormal Comments Line 1: 1.2 CM THICK PERICARDIAL EFFUSION WITHCARDIOMEGALY. ASCITES AND ANASARCA. ENLARGED FATTY LIVER WITHHETEROGENEOUS TEXTURE. INFILTRATIVE LIVER LESION NOT EXCLUDED.CHOLECYSTECTOMY. SIGMOID DIVERTICULOSIS Comments Line 2: Comments Line 3: Comments Line 4: Comments Line 5: us Not In File Miscellaneous IMG CT PROCEDURES Ayanna l Result * XR Chest 1 Vw (02/28/2017 11:54 PM CDT) Anatomical Region Laterality Modality Body, Chest N/A Radiographic Elena ging 02/28/2017 11:5 4 PM CDT Narrative 02/28/2017 11:54 PM CDT DATE OF EXAM: ??Feb 28 2017 ??6:54PM Acc#: ??[id number] ??EDX 0031 - XR Chest Portable ?? DIAGNOSIS: ??STOMACH PAIN CLINICAL HISTORY: ? RESULT: Examination: XR Chest Portable Date: 02/28/2017 HISTORY: 56-year-old woman shortness of breath swelling mild jaundice pitting edema FINDINGS: Compared with the study of 02/12/2017, there is continued cardiomegaly without evidence of failure. ??No infiltrates, fluid or pneumothorax. IMPRESSION: Stable significant cardiomegaly without failure. Electronically signed by: Foster Howe M.D. ? HEEL CASER: ??PSC TRANSCRIBE DATE/TIME: ??Feb 28 2017 ??6:55P RADIOLOGIST: ??FOSTER HOWE M.D. ??READ ON: ??Feb 28 2017 ??6:59P ORDERING DR: MARLENE ORNELAS M.D. THIS DOCUMENT HAS BEEN ELECTRONICALLY SIGNED BY: ??LIGIA Johnston, FOSTER ??ON: ??Feb 28 2017 ??6:55P Attending: ??CECI, ??MARLENE Requesting: ??CECI, ??MARLENE Requesting Fax: ??-- Attending Fax: ??-- Attending ID: ??[id number] Requesting ID: ??[id number] Report To 1 ID: ?? Report To 1 Name: ??, ?? Report To 1 FAX: ??-- Report To 2 ID: ?? Report To 2 Name: ??, ?? Report To 2 FAX: ??-- NextGen Order #: ?? Procedure Note Miscellaneous, Not In File / Provider, MD Nica - 03/06/2017 DATE OF EXAM: Feb 28 2017 6:54PM Acc#: [id number] EDX 0031 - XR Chest Portable DIAGNOSIS: STOMACH PAIN CLINICAL HISTORY: RESULT: Examination: XR Chest Portable Date: 02/28/2017 HISTORY: 56-year-old woman shortness of breath swelling mild jaundice pitting edema FINDINGS: Compared with the study of 02/12/2017, there is continued cardiomegaly without evidence of failure. No infiltrates, fluid or pneumothorax. IMPRESSION: Stable significant cardiomegaly without failure. Electronically signed by: Foster Howe M.D. HEEL CASER: PSC TRANSCRIBE DATE/TIME: Feb 28 2017 6:55P RADIOLOGIST: FOSTER HOWE M.D. READ ON: Feb 28 2017 6:59P ORDERING DR: MARLENE ORNELAS M.D. THIS DOCUMENT HAS BEEN ELECTRONICALLY SIGNED BY: FOSTER HOWE M.D. ON: Feb 28 2017 6:55P Attending: MARLENE ORNELAS Requesting: MARLENE ORNELAS Requesting Fax: -- Attending Fax: -- Attending ID: [id number] Requesting ID: [id number] Report To 1 ID: Report To 1 Name: , Report To 1 FAX: -- Report To 2 ID: Report To 2 Name: , Report To 2 FAX: -- NextGen Order #: us Not In File Miscellaneous IMG XR PROCEDURES Ayanna l Result documented in this encounter Visit Diagnoses Not on filedocumented in this encounter Care Teams Project Financial Analyst Relationship Specialty [place] [address] [place] [address] PCP - General 02/23/17 04/13/18 documented as of this encounter
--- OUTSIDE RECORDS SUMMARY | 2024-10-07 00:54 | XMS_ITS | Encounter Summary ---
Author Organization [facility] Medical Group Address [address] [place] [address] Care Team Providers Care Swimming Pool Installer Name Role Phone Jey Klein Primary Care Provider + Encounter Details Date Type Department Care Team (Late st Contact Info) Description 03/08/2017 Orders Only Hospitalists [id number] [place] [address] Sharon Montoya MD [address] [place] [address] Social History Tobacco Use Types Packs/Day Years Used Date Smoking Tobacco: Never Assessed Comments Unknown Sex and Gender Information Value Date Recorded Sex Assigned at Not on file Legal Sex Female 3:51 AM SPORT INTERNSHIP Gender Identity Not on file Sexual Orientation Not on file documented as of this encounter Plan of Treatment Not on file documented as of this encounter Procedures Procedure Name Priority Date/Time Associated Diagnosis Comments EGFR Routine 03/08/2017 2:40 PM CDT documented in this encounter Results * eGFR (03/08/2017 2:40 PM CDT) eGFR 72 mL/min/1.7 3 m2 [facility] CAR Comment: Interpretive Data Reference Interval Normal ?>/= 90 mL/min/1.73m2 Mildly decreased* ? 60 - 89 mL/min/1.73m2 Mildly to moderately decreased ?45 - 59 mL/min/1.73m2 Moderately to severely decreased ??30 - 44 mL/min/1.73m2 Severely decreased ?15 - 29 mL/min/1.73m2 Kidney Failure ?< 15 ??mL/min/1.73m2 *Relative to young adult level If -[place] multiply value by 1.16. Estimated glomerular filtration [...] was last reviewed 2016. Blood specimen (specimen) 03/08/2017 2:40 PM CDT 03/08/2017 2:59 PM CDT us Sharon Montoya MD LAB BLOOD ORDERABLES Final Resu lt Performing Organization Address City/State/[facility] Co de Phone Number [facility] [phone] Department [place] [address] documented in this encounter Visit Diagnoses Not on filedocumented in this encounter Care Teams Swimming Pool Installer Relationship Specialty Start Date End Date Jey Klein PA [address] [place] [address] PCP - General 02/23/17 04/13/18 documented as of this encounter
--- OUTSIDE RECORDS SUMMARY | 2024-10-07 00:54 | XMS_ITS | Encounter Summary ---
Author Organization 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 us Not In File Miscellaneous IMG US PROCEDURES Ayanna l Result [facility] documented in this encounter Visit Diagnoses Not on filedocumented in this encounter Care Teams Clam Treader Relationship Specialty Start Date End Date Oswaldo Serrano MD [address] [place] [address] PCP - General Family Medicine 04/14/18 documented as of this encounter
--- OUTSIDE RECORDS SUMMARY | 2024-10-07 00:54 | XMS_ITS | Encounter Summary ---
Author Organization [facility] Medical Group Address [address] [place] [address] Care Team Providers Care Workforce Investment Act Career Manager Name Role Phone Jey Klein Primary Care Provider + Encounter Details Date Type Department Care Team (Late st Contact Info) Description 03/07/2017 Orders Only Hospitalists [address] [address] [place] [address] [address] Social History Tobacco Use Types Packs/Day Years Used Date Smoking Tobacco: Never Assessed Comments Unknown Sex and Gender Information Value Date Recorded Sex Assigned at Not on file Legal Sex Female 3:51 AM PHOTOGRAPHY ASSISTANT Gender Identity Not on file Sexual Orientation Not on file documented as of this encounter Plan of Treatment Not on file documented as of this encounter Procedures Procedure Name Priority Date/Time Associated Diagnosis Comments GLUCOSE POC Routine 03/07/2017 8:24 AM CDT documented in this encounter Results * Glucose POC (03/07/2017 8:24 AM CDT) Glucose, POC 79 70 - 199 mg/dL [facility] Blood specimen (specimen) 03/07/2017 8:24 AM CDT 03/07/2017 8:24 AM CDT Elly Julian MD POINT OF CARE TEST ORDERABLES Final Result [facility] [address] Department [place] [address] documented in this encounter Visit Diagnoses Not on filedocumented in this encounter Care Teams Workforce Investment Act Career Manager Relationship Specialty Start Date End Date Jey Klein PA [address] [place] [address] PCP - General 02/23/17 04/13/18 documented as of this encounter
--- OUTSIDE RECORDS SUMMARY | 2024-10-07 00:54 | XMS_ITS | Encounter Summary ---
Author Organization [facility] Healthcare Address [address] [place] [address] Care Team Providers Care Construction Rep Name Role Phone Oswaldo Serrano MD Primary Care Provider [phone] [phone] Encounter Details Date Type Department Care Team [...] on file Legal Sex Female 3:51 AM LEGAL ADMINISTRATIVE ASSISTANT Gender Identity Not on file Sexual Orientation Not on file documented as of this encounter Plan of Treatment Not on file documented as of this encounter Procedures Procedure Name Priority Date/Time Associated Diagnosis Comments CT BODY OUTSIDE REFERENCE Routine 05/21/2024 12:00 AM CDT documented in this encounter Results * CT Body Outside Reference (05/21/2024 12:00 AM CDT) Narrative [facility] - 08/07/2024 10:23 AM CDT This order has been auto-finalized and does not contain a result. us Not In File Miscellaneous IMG CT PROCEDURES Ayanna l Result [facility] documented in this encounter Visit Diagnoses Not on filedocumented in this encounter Care Teams Construction Rep Relationship Specialty Start Date End Date Oswaldo Serrano MD [address] [place] [address] PCP - General Family Medicine 04/14/18 documented as of this encounter
--- OUTSIDE RECORDS SUMMARY | 2024-10-07 00:54 | XMS_ITS | Encounter Summary ---
Author Organization [facility] Healthcare Address [address] [place] [address] Care Team Providers Care Pipeline Construction Inspector Name Role Phone Oswaldo Serrano MD Primary Care Provider [phone] Encounter Details Date Type Department Care Team [...] file Legal Sex Female 3:51 AM SENIOR CORPORATE RECRUITER Gender Identity Not on file Sexual Orientation Not on file documented as of this encounter Plan of Treatment Not on file documented as of this encounter Procedures Procedure Name Priority Date/Time Associated Diagnosis Comments XR TRANSFER OF OUTSIDE FILMS Routine 05/21/2024 12:00 AM CDT documented in this encounter Results * XR Outside Reference (05/21/2024 12:00 AM CDT) Narrative [facility] - 08/07/2024 10:23 AM CDT This order has been auto-finalized and does not contain a result. us Not In File Miscellaneous IMG XR PROCEDURES Ayanna l Result [facility] documented in this encounter Visit Diagnoses Not on filedocumented in this encounter Care Teams Pipeline Construction Inspector Relationship Specialty Start Date End Date Oswaldo Serrano MD [address] [place] [address] PCP - General Family Medicine 04/14/18 documented as of this encounter
--- OUTSIDE RECORDS SUMMARY | 2024-10-07 00:54 | XMS_ITS | Encounter Summary ---
Author Organization [facility] Medical Group Address [address] [place] [address] Care Team Providers Care Cloth Roll Winder Name Role Phone Jey Klein Primary Care Provider + Encounter Details Date Type Department Care Team (Late st Contact Info) Description 03/07/2017 Orders Only Hospitalists [address] [address] [place] [address] [address] Social History Tobacco Use Types Packs/Day Years Used Date Smoking Tobacco: Never Assessed Comments Unknown Sex and Gender Information Value Date Recorded Sex Assigned at Not on file Legal Sex Female 3:51 AM INSULATION BOARD COATER OPERATOR Gender Identity Not on file Sexual Orientation Not on file documented as of this encounter Plan of Treatment Not on file documented as of this encounter Procedures Procedure Name Priority Date/Time Associated Diagnosis Comments GLUCOSE POC Routine 03/07/2017 8:39 PM CDT documented in this encounter Results * Glucose POC (03/07/2017 8:39 PM CDT) Glucose, POC 198 70 - 199 mg/dL [facility] Blood specimen (specimen) 03/07/2017 8:39 PM CDT 03/07/2017 8:39 PM CDT Elly Julian MD POINT OF CARE TEST ORDERABLES Final Result [facility] [id number] Department [place] [address] documented in this encounter Visit Diagnoses Not on filedocumented in this encounter Care Teams Cloth Roll Winder Relationship Specialty Start Date End Date Jey Klein PA [address] [place] [address] PCP - General 02/23/17 04/13/18 documented as of this encounter
--- OUTSIDE RECORDS SUMMARY | 2024-10-07 00:54 | XMS_ITS | Encounter Summary ---
Author Organization [facility] Medical Group Address [address] [place] [address] Care Team Providers Care Communications Maintainer Name Role Phone Jey Klein Primary Care Provider + Oswaldo Serrano MD Primary Care Provider [phone] Reason for Referral * Cardiology (Routine) - Closed Specialty Diagnoses / Procedures Referred By Contac t Referred To Contact Procedures Transthoracic Echo Complete W Doppler/CF Josué Benson Jr., MD Phone: tel: fax: Referral ID Status Reason Start Date Expiration Date Visits Re quested Visits Authorized [id number] Closed 04/05/2017 10/02/2017 1 1 Encounter Details Date Type Department Care Team (Late st Contact Info) Description 04/05/2017 Orders Only [facility] [address] [address] Josué Benson Jr., MD [address] [place] [address] Social History Tobacco Use Types Packs/Day Years Used Date Smoking Tobacco: Never Assessed Comments Unknown Sex and Gender Information Value Date Recorded Sex Assigned at Not on file Legal Sex Female 3:51 AM AIR DUCT MECHANIC Gender Identity Not on file Sexual Orientation Not on file documented as of this encounter Plan of Treatment Not on file documented as of this encounter Procedures Procedure Name Priority Date/Time Associated Diagnosis Comments TRANSTHORACIC ECHO (TTE) COM PLETE W DOPPLER/CF Routine 03/17/2017 documented in this encounter Results * Transthoracic Echo Complete W Doppler/CF (03/17/2017) Anatomical Region Laterality Modality Ultrasound us Josué Benson Jr., MD CV ECHO PROCEDURES Fin al Result documented in this encounter Visit Diagnoses Not on filedocumented in this encounter Care Teams Communications Maintainer Relationship Specialty Start Date End Date Jey Klein PA [address] [place] [address] PCP - General 02/23/17 04/13/18 Oswaldo Serrano MD [address] [address] PCP - General Family Medicine 04/14/18 documented as of this encounter
--- OUTSIDE RECORDS SUMMARY | 2024-10-07 00:54 | XMS_ITS | Encounter Summary ---
Author Organization [facility] Medical Group Address [address] [place] [address] Care Team Providers Care Chicken Picker Name Role Phone Jey Klein Primary Care Provider + Encounter Details Date Type Department Care Team (Late st Contact Info) Description 03/07/2017 Orders Only [facility] Hospitalists [address] [address] [place] [address] [address] Social History Tobacco Use Types Packs/Day Years Used Date Smoking Tobacco: Never Assessed Comments Unknown Sex and Gender Information Value Date Recorded Sex Assigned at Not on file Legal Sex Female 3:51 AM PULPER TENDER Gender Identity Not on file Sexual Orientation Not on file documented as of this encounter Plan of Treatment Not on file documented as of this encounter Procedures Procedure Name Priority Date/Time Associated Diagnosis Comments HEPATIC FUNCTION PANEL Routine 03/07/2017 5:05 AM CDT documented in this encounter Results * (ABNORMAL) Hepatic function panel (03/07/2017 5:05 AM CDT) AST 25 7 - 40 Units/L [facility] ALT 21 1 - 45 Units/L [facility] Alk phos 241(H) 30 - 110 Units/L [facility] Bilirubin, total 1.90(H) 0.10 - 1.30 mg/dL [facility] Bilirubin, direct 1.00(H) 0.00 - 0.40 mg/dL [facility] Protein, pl 6.2 6.0 - 8.3 g/dL [facility] Albumin 2.2(L) 3.2 - 4.8 g/dL [facility] Blood specimen (specimen) 03/07/2017 5:05 AM CDT 03/07/2017 5:30 AM CDT us Elly Julian MD LAB BLOOD ORDERABLE S Final Result [facility] [id number] Department of Laboratories [place], [place] [id number] documented in this encounter Visit Diagnoses Not on filedocumented in this encounter Care Teams Chicken Picker Relationship Specialty Start Date End Date Jey Klein PA [address] [place] [address] PCP - General 02/23/17 04/13/18 documented as of this encounter
--- OUTSIDE RECORDS SUMMARY | 2024-10-07 00:54 | XMS_ITS | Encounter Summary ---
Author Organization [facility] Medical [facility] Address [address] [place] [address] Care Team Providers Care Mangle Operator Garments Name Role Phone Jey Klein Primary Care Provider + Encounter Details Date Type Department Care Team (Late st Contact Info) Description 03/08/2017 Orders Only Hospitalists [address] [address] [place] [address] [address] Social History Tobacco Use Types Packs/Day Years Used Date Smoking Tobacco: Never Assessed Comments Unknown Sex and Gender Information Value Date Recorded Sex Assigned at Not on file Legal Sex Female 3:51 AM COLOR BUFFER Gender Identity Not on file Sexual Orientation Not on file documented as of this encounter Plan of Treatment Not on file documented as of this encounter Procedures Procedure Name Priority Date/Time Associated Diagnosis Comments GLUCOSE POC Routine 03/08/2017 4:17 AM CDT documented in this encounter Results * Glucose POC (03/08/2017 4:17 AM CDT) Glucose, POC 168 70 - 199 mg/dL [facility] Blood specimen (specimen) 03/08/2017 4:17 AM CDT 03/08/2017 4:17 AM CDT Elly Julian MD POINT OF CARE TEST ORDERABLES Final Result [facility] [address] [address] Department [place] [address] documented in this encounter Visit Diagnoses Not on filedocumented in this encounter Care Teams Mangle Operator Garments Relationship Specialty Start Date End Date Jey Klein PA [address] [place] [address] PCP - General 02/23/17 04/13/18 documented as of this encounter
--- OUTSIDE RECORDS SUMMARY | 2024-10-07 00:54 | XMS_ITS | Encounter Summary ---
Author Organization [facility] Medical [facility] Address [address] [place] [address] Care Team Providers Care Fiberglass Boat Maker Name Role Phone Jey Klein Primary Care Provider + Encounter Details Date Type Department Care Team (Late st Contact Info) Description 03/08/2017 Orders Only Hospitalists [address] [address] [place] [address] [address] Social History Tobacco Use Types Packs/Day Years Used Date Smoking Tobacco: Never Assessed Comments Unknown Sex and Gender Information Value Date Recorded Sex Assigned at Not on file Legal Sex Female 3:51 AM TRAIN ELECTRONIC TECHNICIAN Gender Identity Not on file Sexual Orientation Not on file documented as of this encounter Plan of Treatment Not on file documented as of this encounter Procedures Procedure Name Priority Date/Time Associated Diagnosis Comments GLUCOSE POC Routine 03/08/2017 7:22 AM CDT documented in this encounter Results * Glucose POC (03/08/2017 7:22 AM CDT) Glucose, POC 134 70 - 199 mg/dL [facility] Blood specimen (specimen) 03/08/2017 7:22 AM CDT 03/08/2017 7:22 AM CDT Elly Julian MD POINT OF CARE TEST ORDERABLES Final Result [facility] [address] Department [place] [address] documented in this encounter Visit Diagnoses Not on filedocumented in this encounter Care Teams Fiberglass Boat Maker Relationship Specialty Start Date End Date Jey Klein PA [address] [place] [address] PCP - General 02/23/17 04/13/18 documented as of this encounter
--- OUTSIDE RECORDS SUMMARY | 2024-10-07 00:54 | XMS_ITS | Encounter Summary ---
Author Organization [facility] Healthcare Address [address] [place] [address] Care Team Providers Care Geodetic Advisor Name Role Phone Oswaldo Serrano MD Primary Care Provider [phone] Reason for Referral * Cardiology (Routine) - Pending Review Specialty Diagnoses / Procedures Referred By Praful ferro Referred To Contact Diagnoses Acute bacterial endocarditis Procedures Transesophageal Echo (CHANCE) W Doppler/CF TRANSESOPHAGEAL ECHO (CHANCE) W DOPPLER/CF TRANSESOPHAGEAL ECHO (CHANCE) W DOPPLER/CF WO CONTRAST TRANSESOPHAGEAL ECHOCARDIOGRAM (CHANCE) COMPLETE W/ CONTRAST TRANSESOPHAGEAL ECHO (CHANCE) W DOPPLER/CF W CONTRAST TRANSESOPHAGEAL ECHO (CHANCE) W LTD DOPPLER/CF WO CONTRAST TRANSESOPHAGEAL ECHOCARDIOGRAM (CHANCE) COMPLETE W/ COLOR TRANSESOPHAGEAL ECHO (CHANCE) WO DOPPLER/CF W CONTRAST Jasper Mcfarland MD [address] [place] [address] Phone: tel: fax: [address] [address] Referral ID Status Reason Start Date Expiration Date V isits Requested Visits Authorized [id number] Pending Review 05/30/2024 06/29/2025 1 1 Encounter Details Date Type Department Care Team (Late st Contact Info) Description 05/30/2024 Orders Only [facility] Cardiac Catheterization Lab [address] [place] [address] Jasper Mcfarland MD [address] [place] [address] Acute bacterial endocarditis (Primary Dx) Social History Tobacco Use Types Packs/Day Years Used Date Smoking Tobacco: Never Smokeless Tobacco: Never [facility] Utilities Answer Date Recorded In the [...] attend chur ch or anabaptism services? Never 06/01/2024 Do you belong to any clubs o r organizations such as pentecostal groups, unions, fraternal or athletic groups, or [...] any time in the past 12 m [facility], were you homeless or living in a [place] health care facility (including now)? No 06/01/2024 Personal Safety Answer Date Recorded Getting School Help Needed Not on file 12/24 Comments Unknown Sex and Gender Information Value Date Recorded Sex Assigned at Not on file Legal Sex Female 3:51 AM BATTERYMAN Gender Identity Not on file Sexual Orientation Not on file documented as of this encounter Plan of Treatment Pending Results Name Type Priority Associated Diagnoses Date /Time Transesophageal Echo (CHANCE) W Doppler/CF Echocardiography Routine Acute bacterial endocarditis 05/31/2024 9:35 AM CDT Scheduled Orders Name Type Priority Associated Diagnoses Orde r Schedule Transesophageal Echo (CHANCE) W Doppler/CF Echocardiography Routine Acute bacterial endocarditis Expected: 05/31/2024, Expires: 08/30/2025 documented as of this encounter Visit Diagnoses Diagnosis Acute bacterial endocarditis- Primary Acute and subacute bacterial endocarditis documented in this encounter Orders Case Request Count Last Ordered Date First Orde red Date CASE REQUEST CARBIDE OPERATOR 1 05/30/2024 documented in this encounter Care Teams Geodetic Advisor Relationship Specialty Start Date End Date Oswaldo Serrano MD [address] [address] PCP - General Family Medicine 04/14/18 documented as of this encounter
--- OUTSIDE RECORDS SUMMARY | 2024-10-07 00:54 | XMS_ITS | Encounter Summary ---
Author Organization [facility] Healthcare Address [address] [place] [address] Care Team Providers Care Net C Developer Name Role Phone Oswaldo Serrano MD Primary Care Provider [phone] Encounter Details Date Type Department Care Team (Late st Contact Info) Description 05/21/2024 12:10 AM CDT Ancillary Procedure [facility] Outside Films Social History Tobacco Use Types Packs/Day Years Used Date Smoking Tobacco: Never Assessed Personal Safety Answer Date Recorded Getting School Help Needed Not on file 12/24 Comments Unknown Sex and Gender Information Value Date Recorded Sex Assigned at Not on file 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 us Not In File Miscellaneous IMG CT PROCEDURES Ayanna l Result [facility] documented in this encounter Visit Diagnoses Not on filedocumented in this encounter Care Teams Net C Developer Relationship Specialty Start Date End Date Oswaldo Serrano MD [address] [place] [address] PCP - General Family Medicine 04/14/18 documented as of this encounter
--- OUTSIDE RECORDS SUMMARY | 2024-10-07 00:54 | XMS_ITS | Encounter Summary ---
Author Organization [facility] Address [address] [facility] [address] [place] [address] Care Team Providers Care Proration Clerk Name Role Phone Jey Klein Primary Care Provider + Encounter Details Date Type Department Care Team (Late st Contact Info) Description 03/07/2017 Orders Only Hospitalists [address] [address] [place] [address] [address] Social History Tobacco Use Types Packs/Day Years Used Date Smoking Tobacco: Never Assessed Comments Unknown Sex and Gender Information Value Date Recorded Sex Assigned at Not on file 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 60 - 89 mL/min/1.73m2 Mildly to moderately decreased ?45 - 59 mL/min/1.73m2 Moderately to severely decreased ??30 - 44 mL/min/1.73m2 Severely decreased ?15 - 29 mL/min/1.73m2 Kidney Failure ?< 15 ??mL/min/1.73m2 *Relative to young adult level If -Taiwanese multiply value by 1.16. Estimated glomerular filtration [...] was last reviewed 2016. Blood specimen (specimen) 03/07/2017 5:05 AM CDT 03/07/2017 5:34 AM CDT us Elly Julian MD LAB BLOOD ORDERABLE S Final Result Performing Organization Address City/State/[facility] Co de Phone Number [facility] [phone] [address] Department [place] [address] documented in this encounter Visit Diagnoses Not on filedocumented in this encounter Care Teams Proration Clerk Relationship Specialty Start Date End Date Jey Klein PA [address] [place] [address] PCP - General 02/23/17 04/13/18 documented as of this encounter
--- OUTSIDE RECORDS SUMMARY | 2024-10-07 00:54 | XMS_ITS | Encounter Summary ---
Author Organization [facility] Medical Group Address [address] [facility] [address] [place] [address] Care Team Providers Care Black Off Worker Name Role Phone Jey Klein Primary Care Provider + Encounter Details Date Type Department Care Team (Late st Contact Info) Description 03/07/2017 Orders Only Hospitalists [address] [address] [place] [address] [address] Social History Tobacco Use Types Packs/Day Years Used Date Smoking Tobacco: Never Assessed Comments Unknown Sex and Gender Information Value Date Recorded Sex Assigned at Not on file 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 Gender Identity Not on file Sexual Orientation Not on file documented as of this encounter Plan of Treatment Not on file documented as of this encounter Procedures Procedure Name Priority Date/Time Associated Diagnosis Comments DIFFERENTIAL AUTO Routine 03/07/2017 5:0 5 AM CDT documented in this encounter Results * Differential, auto (03/07/2017 5:05 AM CDT) Neutrophil pct 64.3 % [facility] Imm gran pct 0.5 % [facility] Lymphocyte pct 20.4 % [facility] Monocyte pct 11.9 % [facility] Eosinophil pct 0.1 % [facility] Basophil pct 0.7 % [facility] Neutrophil abs 3.77 1.70 - 6.50 K/cumm [facility] Imm gran abs 0.03 0.00 - 0.10 K/cumm [facility] Lymphocyte abs 1.20 0.80 - 3.30 K/cumm [facility] Monocyte abs 0.70 0.20 - 0.80 K/cumm [facility] Eosinophil abs 0.13 0.00 - 0.50 K/cumm [facility] Basophil abs 0.04 0.00 - 0.10 K/cumm [facility] Blood specimen (specimen) 03/07/2017 5:05 AM CDT 03/07/2017 5:31 AM CDT us Elly Julian MD LAB BLOOD ORDERABLE S Final Result Performing Organization Address City/State/[facility] Co de Phone Number [facility] [address] [address] Department [place] [address] documented in this encounter Visit Diagnoses Not on filedocumented in this encounter Care Teams Black Off Worker Relationship Specialty Start Date End Date Jey Klein PA [address] [place] [address] PCP - General 02/23/17 04/13/18 documented as of this encounter
--- OUTSIDE RECORDS SUMMARY | 2024-10-07 00:54 | XMS_ITS | Encounter Summary ---
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 Gender Identity Not on file Sexual Orientation Not on file documented as of this encounter Plan of Treatment Not on file documented as of this encounter Procedures Procedure Name Priority Date/Time Associated Diagnosis Comments CBC WITH AUTO DIFFERENTIAL Routine 03/07/2017 5:05 AM CDT documented in this encounter Results * (ABNORMAL) CBC with auto differential (03/07/2017 5:05 AM CDT) WBC 5.87 3.80 - 9.90 K/cumm [facility] RBC 3.37(L) 3.90 - 5.20 M/cumm [facility] Hgb 8.5(L) 11.9 - 15.5 g/dL [facility] Hct 28.1(L) 35.6 - 45.5 % [facility] MCV 83.4 81.3 - 96.4 fL [facility] MCH 25.2(L) 27.1 - 33.3 pg [facility] MCHC 30.2(L) 32.3 - 35.7 g/dL [facility] RDW CV 19.2(H) 11.1 - 14.9 % [facility] RDW SD 56.7(H) 35.7 - 48.1 fL [facility] Plt 380 150 - 400 K/cumm [facility] MPV 8.9(L) 9.1 - 12.3 fL [facility] NRBC 0.0 0.0 - 0.2 % [facility] NRBC abs 0.00 0.00 - 0.01 K/cumm [facility] Blood specimen (specimen) 03/07/2017 5:05 AM CDT 03/07/2017 5:31 AM CDT us Elly Julian MD LAB BLOOD ORDERABLE S Final Result [facility] [id number] [address] Department of Laboratories [place], [place] [id number] documented in this encounter Visit Diagnoses Not on filedocumented in this encounter Care Teams News Intern Relationship Specialty Start Date End Date Jey Klein PA [address] [place] [address] PCP - General 02/23/17 04/13/18 documented as of this encounter
--- OUTSIDE RECORDS SUMMARY | 2024-10-07 00:54 | XMS_ITS | Encounter Summary ---
Author Organization [facility] Address [address] [place] [address] Phone Care Team Providers Care Geographical Historian Name Role Phone Oswaldo Serrano MD Primary Care Provider [phone] Reason for Visit * Reason Comments New Patient Pain Encounter Details Date Type Department Care Team (Late st Contact Info) Description 04/24/2018 2:40 PM CDT Office Visit [facility] [address] [place] [address] Matias Giraldo MD [address] [address] Tear of right rotator cuff, unspecified tear extent (Primary Dx); Mass of arm, right Social History Tobacco Use Types Packs/Day Years Used Date Smoking Tobacco: Never Assessed Comments Unknown Sex and Gender Information Value Date Recorded Sex Assigned at Not on file 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 Oswaldo Serrano is seen today for evaluation of right arm pain of 1 month duration. The patient has a history of fall several years ago but no recent trauma. The patient has difficulty with abduction and forward flexion and cannot reach above her head. 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 The patient cannot undergo MRI scanning due to the presence of a defibrillator. Examination confirms healthy-appearing 57-year-old with positive findings in the right shoulder with there is mild acromioclavicular hypertrophy and there is tenderness in the subacromial space. There is a painful arc with loss of glenohumeral rhythm at 70 degrees abduction. There is a positive drop-arm test and empty can test. There is also generalized periarticular edema in the patient's shoulder and upper arm particularly posterior laterally. There is what appears to be slight induration of this is skin vasculature and a mass palpable which is quite different from examination on the opposite side. Peripheral neurovascular status is preserved. X-rays confirm mild AC DJD. Diagnosis-right shoulder pain/swelling/possible neoplastic mass upper arm. Plan-CT scan right shoulder and upper arm to evaluate soft tissues. Return following investigation. documented in this encounter Plan of Treatment Not on file documented as of this encounter Visit Diagnoses Diagnosis Tear of right rotator cuff, unspecified tear extent- Primary Mass of arm, right documented in this encounter Care Teams Geographical Historian Relationship Specialty Start Date End Date Oswaldo Serrano MD [address] [place] [address] PCP - General Family Medicine 04/14/18 documented as of this encounter
--- OUTSIDE RECORDS SUMMARY | 2024-10-07 00:54 | XMS_ITS | Encounter Summary ---
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 Gender Identity Not on file Sexual Orientation Not on file documented as of this encounter Plan of Treatment Not on file documented as of this encounter Procedures Procedure Name Priority Date/Time Associated Diagnosis Comments GLUCOSE POC Routine 03/07/2017 3:43 AM CDT documented in this encounter Results * Glucose POC (03/07/2017 3:43 AM CDT) Glucose, POC 158 70 - 199 mg/dL [facility] Blood specimen (specimen) 03/07/2017 3:43 AM CDT 03/07/2017 3:43 AM CDT Elly Julian MD POINT OF CARE TEST ORDERABLES Final Result [facility] [address] [address] Department [place] [address] documented in this encounter Visit Diagnoses Not on filedocumented in this encounter Care Teams Hand Grinder Relationship Specialty Start Date End Date Jey Klein PA [address] [place] [address] PCP - General 02/23/17 04/13/18 documented as of this encounter
--- OUTSIDE RECORDS SUMMARY | 2024-10-07 00:54 | XMS_ITS | Encounter Summary ---
Author Organization [facility] Medical Group Address [address] [facility] [address] [place] [address] Care Team Providers Care Subway Operator Name Role Phone Jey Klein Primary Care Provider + Encounter Details Date Type Department Care Team (Late st Contact Info) Description 03/08/2017 Orders Only Hospitalists [address] [address] [place] [address] [address] Social History Tobacco Use Types Packs/Day Years Used Date Smoking Tobacco: Never Assessed Comments Unknown Sex and Gender Information Value Date Recorded Sex Assigned at Not on file Legal Sex Female 3:51 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 Gender Identity Not on file Sexual Orientation Not on file documented as of this encounter Plan of Treatment Not on file documented as of this encounter Procedures Procedure Name Priority Date/Time Associated Diagnosis Comments GLUCOSE POC Routine 03/08/2017 1:05 PM CDT documented in this encounter Results * (ABNORMAL) Glucose POC (03/08/2017 1:05 PM CDT) Glucose, POC 200(H) 70 - 199 mg/dL [facility] Blood specimen (specimen) 03/08/2017 1:05 PM CDT 03/08/2017 1:05 PM CDT us Elly Julian MD POINT OF CARE TEST ORDERABLES Final Result [facility] [address] [address] Department [place] [address] documented in this encounter Visit Diagnoses Not on filedocumented in this encounter Care Teams Subway Operator Relationship Specialty Start Date End Date Jey Klein PA [address] [place] [address] PCP - General 02/23/17 04/13/18 documented as of this encounter
--- OUTSIDE RECORDS SUMMARY | 2024-10-07 00:54 | XMS_ITS | Encounter Summary ---
Author Organization [facility] Healthcare Address [address] [place] [address] Care Team Providers Care Engine Installer Name Role Phone Oswaldo Serrano MD Primary Care Provider [phone] Encounter Details Date Type Department Care Team (Late st Contact Info) Description 05/29/2024 Orders Only [facility] Medical Group Cardiology [address] [facility] [address] [place] [address] Tom Huang MD [address] [facility] [address] [place] [address] Social History Tobacco Use Types Packs/Day Years [...] attend chur ch or hindu services? Never 06/01/2024 Do you belong to [...] any time in the past 12 m [facility], were you homeless or living in a group home (including now)? 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 Gender Identity Not on file Sexual Orientation Not on file documented as of this encounter Plan of Treatment Not on file documented as of this encounter Procedures Procedure Name Priority Date/Time Associated Diagnosis Comments CARDIOLOGY DOCUMENT SCAN Routine 024 10:22 AM CDT CARDIOLOGY DOCUMENT SCAN Routine 024 10:18 AM CDT documented in this encounter Results * Cardiology Document Scan (05/27/2024 10:22 AM CDT) Anatomical Region Laterality Modality Other us Tom Huang MD CV CARDIAC SERVICES PROC EDURES Final Result * Cardiology Document Scan (05/25/2024 10:18 AM CDT) Anatomical Region Laterality Modality Other us Tom Huang MD CV CARDIAC SERVICES PROC EDURES Final Result documented in this encounter Visit Diagnoses Not on filedocumented in this encounter Care Teams Engine Installer Relationship Specialty Start Date End Date Oswaldo Serrano MD [address] [address] PCP - General Family Medicine 04/14/18 documented as of this encounter
--- OUTSIDE RECORDS SUMMARY | 2024-10-07 00:54 | XMS_ITS | Encounter Summary ---
Author Organization [facility] Healthcare Address [address] [place] [address] Care Team Providers Care Legal Examiner Name Role Phone Oswaldo Serrano MD Primary Care Provider [phone] Reason for Visit * Auth/Cert (Routine) Specialty Diagnoses / Procedures Referred By Contac t Referred To Contact Diagnoses Endocarditis endocarditis Procedures na Referral ID Status Reason Start Date Expiration Date Visits Re quested Visits Authorized [id number] 1 1 Encounter Details Date Type Department Care Team (Late st Contact Info) Description 05/31/2024 8:00 AM CDT - 05/31/2024 8:45 AM CDT Surgery [facility] Lab [address] [place] [address] Ty Mcfarland MD [address] [place] [id number] TRANSESOPHAGEAL ECHOCARDIOGRAM Surgery Details Date/Time Status Location OR Service Patient Class Case Class Case Type Trauma Case? 05/31/2024 8:00 AM Posted [facility] ENDOSCOPY GI 4 Cardiovascular Inpatient Elective Panel 1 Procedure LRB Anes Op Region Wound Class Comments TRANSESOPHAGEAL ECHOCARDIOGRAM N/A General Chest CARDIOVERSION Left General Chest Class I - Clean Device Present Surgeon Surgeon Role Service Panel Ty Mcfarland MD Primary Cardiovascular 1 documented in this encounter Social History Tobacco Use Types Packs/Day Years Used Date Smoking Tobacco: Never Smokeless Tobacco: Never Tobacco Cessation:Counseling Given: No [facility] Utilities Answer Date Recorded In the past 12 months has th e [employer], oil, or water [employer] threatened to shut off services in your [...] often do you attend chur ch or jewish services? Never 06/01/2024 Do you belong to [...] any time in the past 12 m [facility], were you homeless or living in a correction (including now)? 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 Gender Identity Not on file Sexual Orientation Not on file documented as of this encounter Last Filed Vital Signs Vital Sign Reading Time Taken Comments Blood Pressure 125/96 05/31/2024 8:45 AM CDT Pulse 100 05/31/2024 8:45 AM CDT Temperature 36.8 ??C (98.2 ??F) 05/31/2024 3:58 AM CD T Respiratory Rate 11 05/31/2024 8:45 AM CDT Oxygen Saturation 94% 05/31/2024 8:45 AM CDT Inhaled Oxygen Concentration - - Weight 121.3 kg (267 lb 6.7 oz) 05/31/2024 7:59 AM CDT Height 165.1 cm (5' 5 ) 05/31/2024 7:59 AM CDT Body Mass Index 41.67 05/31/2024 7:59 AM CDT documented in this encounter Discharge Summaries * Coleen Samuels MD - 06/08/2024 2:05 PM CDT Inpatient Discharge Summary Patient Name - Lei Rodriguez Patient Age - 63 yrs Patient - [id number] [facility] - [id number] Document Creation Date: 06/08/2024 Admitting Provider, MD: Ty Mcfarland MD Discharge Provider, MD: Coleen Samuels MD Primary Care Physician at Discharge: Oswaldo Serrano MD [phone] Admission Date: 05/29/2024 Discharge Date/time: 06/08/2024 Admission Location: [facility] LOS - LOS: 10 days DETAILS OF HOSPITAL STAY Hospital Problems/Diagnoses Principal Problem: Endocarditis Active Problems: SOB (shortness of breath) Acute on chronic systolic congestive heart failure ([facility]) ([facility]) Neck pain Hyponatremia Chronic a-fib ([facility]) ([facility]) Type 2 diabetes mellitus, with long-term current use of insulin ([facility]) Hypothyroid JOSE (obstructive sleep apnea) Diabetes mellitus with hyperglycemia ([facility]) ([facility]) Traumatic hematoma of right upper arm Hypotension Reason for Hospitalization: abdominal pain, endocarditis Hospital Course: Lei Rodriguez is a 63 year old female with PMHx of Afib, CHF, T2DM, GERD, HTN, intellectual disability, JOSE, AICD, hypothyroidism who presented to on 05/29 with abdominal pain. Limited historian due to intellectual disability. She initially presented to [facility] on 05/21 with n/v/d and abdominal [...] SYNTHROID 1 tablet, oral, Every morning multivit dscehysp-pywa-GW-calcium 9 mg iron-400 mcg tablet Commonly known [...] CARDIOVERSION Outpatient Follow-Up: Contact Information for Follow-ups [facility] Home Care Services Specialty: Home Health and Hospice [address] [facility] [address] Next Steps: Follow up Questions: Service Line: Home Health and Infusion Primary disciplines requested: [facility] Physical Therapy Secondary disciplines requested: Occupational Therapy [...] ABX Route 1: IV ABX Frequency 1: [id number] ABX Therapy Duration 1: until 06/08 Physician [...] schedule an appointment with the following provider(s): [facility] Home Care Services [address] [facility] [address] ANCILLARY INFORMATION Other Procedures & Diagnostic Tests: ECG 12 lead Result Date: 05/31/2024 Vent Rate: 76 bpm RR Interval: 785 msec FL Interval: 0 msec QRS Duration: 150 msec QT Interval: 471msec QTC Interval: 501 msec P-R-T Bentley: 0 - 80 - 97 degrees IMPRESSION: ATRIAL FIBRILLATION WITH ABERRANT CONDUCTION OR VENTRICULAR PREMATURE COMPLEXES INTRAVENTRICULAR CONDUCTION DELAY [130+ ms QRS DURATION] ABNORMAL ECG Electronically Signed By: Dr. Shiloh Muhammad [facility] ECG 12 lead Result Date: 05/30/2024 Vent Rate: 109 bpm RR Interval: 548 msec FL Interval: 0 msec QRS Duration: 149 msec QT Interval: 398 msec QTC Interval: 462 msec P-R-T Bentley: 0 - 96 - 89 degrees IMPRESSION: ATRIAL FIBRILLATION WITH RAPID VENTRICULAR RESPONSE BORDERLINE RIGHT AXIS DEVIATION [QRS AXIS > 90] INTRAVENTRICULAR CONDUCTION DELAY [130+ ms QRS DURATION] ABNORMAL ECG Unchanged compared to an EKG done earlier on May 30, 2024 Electronically Signed By: Dr. Shiloh Muhammad [facility] CT Chest WO Contrast Result Date: 05/30/2024 [...] (TTE) Complete W Doppler/CF Result Date: 05/30/2024 [place] [address] Echocardiogram Report Patient Name: LEI RODRIGUEZ V : 1960 Study Date: 05/30/2024 7:47:08 AM Gender: F Tech: Location: [place] [address] Ref Provider: TY MCFARLAND Height(Cm): 165 BSA: 2.43 Weight(Kg): 128.7 Heart Rate: 94 BP: 135/84 Quality: Good OrderProvider: TY MCFARLAND PROCEDURES: Echocardiographic Report: Transthoracic echocardiogram withcomplete 2D, M-Mode, color Doppler examination and contrast. INDICATIONS: Endocarditis. Measurements: 2D/M Mode Doppler Measurement Value Normal Range Measurement Value Normal Range EF Teich 2D 21.6[ 54.0 - 74.0 ] percent MARIANA Vmax [...] LVOT VTI 16.72 cm AoR Diam MM 3.13[ 2.70 - 3.70 ] cm MV E Peak Chadd 1.00 [ 0.60 - 1.30 ] m/s LA Volume Index 22.99 [ 16.00 - 34.00 ] cc/m2 MV A Peak Chadd 0.31 [ 1.00 - 1.20 ] m/s ACS MM 2.14 cm MV Mean PG 2 mmHg MV PHT 54 [ 20 - 100 ]msec MVA PHT 4.11 cm2 MV Decel Time 169 [ 104 - 258 ] msec PV Peak Chadd 1.14 [ 0.40 - 0.80 ] m/s TRPeak Chadd 2.94 [ 1.00 - 2.80 ] m/s TR Peak PG 35 mmHg RVSP 38.00 [ 10.00 - 36.00 ] mmHg E` 0.05 m/sE/E` 19.29 Measurement Value Normal Range Measurement Value [...] Trivial pericardial effusion. Aorta: Mild aortic root calcificat ion. IVC: Dilated IVC without respiratory collapse consistent [...] effusion. Electronically Signed By: Coleen Kwok DO, FACDarlene, ANDREE, MELISSA 2024-05-30 09:18:05 CDT [...] This finding is not present on theprior 2017 examination. The presence of this finding was discussed by Dr. Abernathy with Dr. Hollis and documented by Dr. Hollis in the medical record on 05/30/2024 at [facility]. Electronically signed by: Tawanna Post M.D. ECG 12 lead Result Date: 05/30/2024 Vent Rate: 86 bpm RR Interval: 697 msec FL Interval: 0 msec QRS Duration: 145 msec QT Interval: 438msec QTC Interval: 481 msec P-R-T Bentley: 0 - 101 - 95 degrees IMPRESSION: ATRIAL FIBRILLATION RIGHT AXIS DEVIATION [QRS AXIS > 100] INTRAVENTRICULAR CONDUCTION DELAY [130+ ms QRS DURATION] ABNORMALECG Unchanged compared to 05/29/2021 Electronically Signed By: Dr. Shiloh Muhammad [facility] CT Chest PE (CTA) W Contrast Result Date: 05/30/2024 EXAMINATION: CT CHEST PE (CTA) W CONTRAST HISTORY: Chest pain ORDER DATE: 05/30/2024 3:20 AM TECHNIQUE: CT chest images were acquired using a chest angiographic protocol with 3-D imaging optimized forPE is obtained [id number] mL of Optiray 350 IV. 2D Coronal [...] findings as described above. Stat report by [facility] . Electronically signed by: Andrea Abernathy M.D. [...] and partially calcified bulging disc contributing to ohkr-kf-rcpigpod central spinal stenosis. Disc osteophyte complex also contributing to ttda-dm-lpcetlvp central spinal stenosis at C4-C5 level. No significant disc bulge or herniation. No severe spinal canal stenosis. Uncovertebral joint hypertrophy contributing to multilevel bilateral neural foraminal stenosis. Lungs: Lung apices are normal. Soft tissues: Unremarkable. No acute cervical spine injury. Stat report by [facility] Stat report by [facility] Electronically signed by: Andrea Abernathy M.D. CT [...] No acute intracranial findings. Stat report by [facility] Electronically signed by: Andrea Abernathy M.D. ECG 12 lead Result Date: 05/30/2024 Vent Rate: 93 bpm RR Interval: 645 msec FL Interval: 0 msec QRS Duration: 97 msec QT Interval: 197 msec QTC Interval: 247 msec P-R-T Bentley: 0 - 118 - 0 degrees IMPRESSION: [...] 2.7 2.5 2.0 Recent Labs Lab Units 06/08/24 1208 06/08/24 0645 06/08/24 [id number]/[id number]/06/2472406/06/24 0359 SODIUM mmol/L -- -- 136 -- 131* -- 133* POTASSIUM PLASMA mmol/L -- -- 3.7 -- 4.2 -- 4.0 CHLORIDE mmol/L -- -- 97 -- 97 -- 98 CO2 mmol/L -- -- 30 -- -- 26 BUN SERUM mg/dL -- -- 17 -- 17 -- 20 CREATININE mg/dL -- -- 0.70 -- 0.66 -- 0.68 [id number]-[id number] mL/min/1.73 m2 -- -- >90 -- >90 [...] interval not displayed. Recent Labs Lab Units 06/08/24 1208 06/08/24 0645 06/08/2442906/[id number]/[id number]/07/[id number]/06/2472406/06/24 0359 SODIUM mmol/L -- -- 136 -- 131* -- 133* POTASSIUM PLASMA mmol/L -- -- 3.7 -- 4.2 -- 4.0 CHLORIDE mmol/L -- -- 97 -- 97 -- 98 CO2 mmol/L -- -- -- -- ANIONGAP mmol/L -- -- 9 -- 9 [...] interval not displayed. Recent Labs Lab Units 06/08/24 0430 06/07/24 0400 06/06/24 0359 ALK PHOS Units/L 217* 219* 238* BILIRUBIN TOTAL mg/dL 0.5 0.5 0.4 TOTAL PROTEIN g/dL 7.6 7.2 7.3 ALT Units/L 5* <5* <5* AST Units/L 16 Recent Labs Lab Units 06/08/24 0430 06/07/24 0400 06/06/24 0359 MAGNESIUM mg/dL 2.0 [...] give patient a 15 gram carbohydrate snack. 08/20/24 2201 Anticoagulation Indication: INR: 06/05/2024: 1.91 (H) Warfarin Administrations (last 168 hours) None Oxygen Status: No data found. Wound Care Instructions Other Instructions Ambulatory referral to Home Health Service Line: Home Health and Infusion Primary disciplines requested: [facility] Physical Therapy Secondary disciplines requested: Occupational Therapy [...] ABX Route 1: IV ABX Frequency 1: [id number] ABX Therapy Duration 1: until 06/08 Physician [...] struggling to keep up with their wastewater (welt sewer) bills may qualify for assistance through the federally funded LIHWAP payment . This program is NOT through [facility]. LIHWAP is administered by the [place] [employer]. You will need to apply online at [employer].ct.gov/utility- assistance or call [phone] to ask a steaming machine operator to mail you an application. Am I Eligible? You may be eligible for help if you: Are responsible for paying the utilities for your home. Are a [place] citizen or have been legally admitted for permanent residence. Have $3,000 or less in your bank, mcfp, or investment accounts. Meet specific income guidelines here. If all household members currently get Temporary Assistance (fajardo) or SNAP (Food Stamp) benefits, you are automatically eligible for LIWAP, but you must still apply for the program to get the benefit. How Much Can I Receive and What Does it Cover? The maximum amount you could get is a one-time $750.00 payment, per [place] years (July thrjune)-as funds are available. [facility] can help with [facility] AND wastewater: Disconnection or reconnection fees. Threat of disconnection. Current and past-due bills. If you are applying for assistance with your water and wastewater bills-you must provide all required information for BOTH at the same time. More details available when you apply. You can apply for LIWAP two different ways: Submit your application and documents online here; or Submit your printed application by mail, fax, or in person to your Contracted Agency The contracted agencies for residents in [facility] and the [facility] are as follows: [facility] ([facility]) [address] [facility] [address] Phone number: [facility] Community Action Agency of [facility] ([facility] [address] [place] [address] [facility] Phone number: LIWAP Phone number: Active LDAs (If Blank, None [...] and drink water throughout the day. Call [phone] to speak with a dietitian about anydiet related concerns. Recommend to follow up with outpatient nutrition counseling, ask your doctorfor referral and call [phone] to make an appointment. Additional Resources [place] [employer]: www.diabetes.org/nutrition [place] [employer]: www.heart.org/en/healthy-living/healthy-eating * Discharge Instr - Other Orders* Ivette Harrington MSW - 06/01/2024 3:48 PM CDT Water Bill assistance: What is LIIntematixWAP? Customers who are struggling to keep up with their wastewater (welt sewer) bills may qualify for assistance through the federally funded LIHWAP payment . This program is NOT through [facility]. LIHWAP is administered by the [place] [employer]. You will need to apply online at [employer].Invoice[employer].gov/utility- assistance or call [phone] to ask a steaming machine operator to mail you an application. Am I Eligible? You may be eligible for help if you: Are responsible for paying the utilities for your home. Are a [place] citizen or have been legally admitted for permanent residence. Have $3,000 or less in your bank, mcfp, or investment accounts. Meet specific income guidelines here. If all household members currently get Temporary Assistance (fajardo) or SNAP (Food Stamp) benefits, you are automatically eligible for LIWAP, but you must still apply for the program to get the benefit. How Much Can I Receive and What Does it Cover? The maximum amount you could get is a one-time $750.00 payment, per Federal staci years (July thru June)-as funds are available. [facility] can help with water AND wastewater: Disconnection or reconnection fees. Threat of disconnection. Current and past-due bills. If you are applying for assistance with your water and wastewater bills-you must provide all required information for BOTH at the same time. More details available when you apply. You can apply for LIWAP two different ways: Submit your application and documents online here; or Submit your printed application by mail, fax, or in person to your Contracted Agency The contracted agencies for residents in [facility] and the [facility] are as follows: [facility] [address] [address] Phone number: [facility] Community Action Agency [facility] ([facility]) [address] [place] [phone] [facility] Phone number: [facility] Phone number: * Attachments The following attachments cannot be sent through Care Everywhere. * Pain Management (General Information) (Uruguayan) * 13C Urea and Citric acid (By mouth) (Uruguayan) documented in this encounter Medications at Time [...] mcg total) by mouth every morning multivit siefjwdg-jjec-NF- calcium (THERA-M) 9 mg iron-400 mcg tablet [...] hours for 14 days 4200 mL 06/08/2024 documented in this encounter Discharge Disposition Disposition Code Departure Means Destination Comment s [facility] ([place], [place]) documented in this encounter Progress Notes * Cora Clarke, SENIOR SOFTWARE ENGINEER ANALYTICS - 06/08/2024 3:01 PM CDT Physical Therapy PT PROGRESS NOTE PATIENT'S NAME:Lei Rodriguez :1960 AGE:63 y.o. ROOM:[place] [address] Past Medical History: Diagnosis Date A-fib (CMS/HCC) ([facility]) CHF (congestive heart failure) (CMS/HCC) ([facility]) Diabetes mellitus (HCC) GERD (gastroesophageal reflux disease) [...] on chronic systolic congestive heart failure (CMS/HCC) ([facility]) Neck pain Hyponatremia Chronic a-fib (CMS/HCC) ([facility]) Type 2 diabetes mellitus, with long-term current use of insulin (HCC) Hypothyroid JOSE (obstructive sleep apnea) Diabetes mellitus with hyperglycemia ([facility]/H[facility]) ([facility]) Traumatic hematoma of right upper arm Hypotension [...] Communication completed with Lawson DASILVA this date; per RN pt received pain medication prior to [...] (from Physical Therapy) Active Problems Problem: [place] [facility] Start Date: 06/02/24 Goal Start Date Expected End Date End Date PT [facility] 1 06/02/24 06/09/24 -- Goal Details: Perform bed mobility with modified indep assist. Progressing Goal Start Date Expected End Date End Date PT [facility] 2 06/02/24 06/09/24 -- Goal Details: Perform functional transfers with modified indep assist. Progressing Goal Start Date Expected End Date End Date PT [facility] 3 06/02/24 06/09/24 -- Goal Details: Gait [...] this the discharge summary. Cosigned by Jennifer Mix, PT at 06/08/2024 4:06 PM CDT * Coleen Samuels MD - 06/08/2024 2:03 PM CDT Daily Progress CHIEF COMPLAINT/ BRIEF HOSPITAL COURSE Lei Rodriguez is a 63 year old female with PMHx of Afib, CHF, T2DM, GERD, HTN, intellectual disability, JOSE, AICD, hypothyroidism who presented to on 05/29 with abdominal pain. Limited historian due to intellectual disability. She initially presented to [facility] on 05/21 with n/v/dand abdominal pain. [...] Rate: 109 bpm RR Interval: 548 msec FL Interval: 0 msec QRS Duration: 149 msec QT Interval: 398 msec QTC Interval: 462 msec P-R-T Bentley: 0 - 96 - 89 degrees IMPRESSION: ATRIAL FIBRILLATION WITH RAPID VENTRICULAR RESPONSE BORDERLINE RIGHT AXIS DEVIATION [QRS AXIS > 90] INTRAVENTRICULAR CONDUCTION DELAY [130+ ms QRS DURATION] ABNORMAL ECG Unchanged compared to an EKG done earlier on May 30, 2024 Electronically Signed By: Dr. Shiloh Muhammad [facility] CT Chest WO Contrast Result Date: 05/30/2024 [...] Complete W Doppler/CF Result Date: 05/30/2024 Narrative: [place] [address] Echocardiogram Report Patient Name: LEI RODRIGUEZ V : 1960 Study Date: 05/30/2024 7:47:08 AM Gender: F Tech: Location: [place] [address] Ref Provider: TY MCFARLAND Height(Cm): 165 BSA: [...] effusion. Electronically Signed By: Coleen Kwok DO, FACDarlene, ANDREE, MELISSA 2024-05-30 09:18:05 CDT [...] in the medical record on 05/30/2024 at [facility]. Electronically signed by: Abilio Post M.D. ECG 12 lead Result Date: 05/30/2024 Narrative: Vent Rate: 86 bpm RR Interval: 697 msec FL Interval: 0 msec QRS Duration: 145 msec QT Interval: 438 msec QTC Interval: 481 msec P-R-T Bentley: 0 - 101 - 95 degrees IMPRESSION: ATRIAL FIBRILLATION RIGHT AXIS DEVIATION [QRS AXIS > 100] INTRAVENTRICULAR CONDUCTION DELAY [130+ ms QRS DURATION] ABNORMAL ECG Unchanged compared to 05/29/2021 Electronically Signed By: Dr. Shiloh Muhammad [facility] CT Chest PE (CTA) W Contrast Result Date: 05/30/2024 Narrative: EXAMINATION: CT CHEST PE (CTA) W CONTRAST HISTORY: Chest pain ORDER DATE: 05/30/2024 3:20AM TECHNIQUE: CT chest images were acquired using a chest angiographic protocol with 3-D imaging optimized for PE is obtained [id number] mL of Optiray 350 IV. 2D Coronal [...] findings as described above. Stat report by [facility] . Electronically signed by: Andrea Abernathy M.D. [...] and partially calcified bulging disc contributing to mwxq-ll-kqbvmlzj central spinal stenosis. Disc osteophyte complex also contributing to zaek-jr-knygfpro central spinal stenosis at C4-C5 level. No significant disc bulge or herniation. No severe spinal canal stenosis. Uncovertebral joint hypertrophy contributing to multilevel bilateral neural foraminal stenosis. Lungs: Lung apices are normal. Soft tissues: Unremarkable. Impression: No acute cervical spine injury. Stat report by [facility] Stat report by [facility] Electronically signed by: Andrea Abernathy M.D. CT [...] No acute intracranial findings. Stat report by [facility] Electronically signed by: Andrea Abernathy M.D. ECG 12 lead Result Date: 05/30/2024 Narrative: Vent Rate: 93 bpm RR Interval: 645 msec FL Interval: 0 msec QRS Duration: 97 msec QT Interval: 197 msec QTC Interval: 247 msec P-R-T Bentley: 0 - 118 - 0 degrees IMPRESSION: [...] Staph aureus MSSA. From 05/21 and 05/22. [facility] echo reported as Tricuspid valve vegetation. CT [...] unknown date so far will follow-up with [facility]. 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 She underwent CHANCE, with no visible [...] fever curve and WBC count. Called microlab [facility] blood cultures 05/25 NG. blood cultures were positive for Staph aureus 05/21 and 05/22 Blood cultures were negative at outside hospital from 05[facility]25[facility] abdomen and pelvis With [...] to complete antibiotics. Eben Pettit MD 06/08/2024 [facility] Office: [phone] Fax: [phone] Voice recognition software was used to complete this document, therefore, university extension specialist variances may occur. * Coleen Samuels MD - 06/07/2024 2:00 PM CDT Daily Progress CHIEF COMPLAINT/ BRIEF HOSPITAL COURSE Lei Rodriguez is a 63 year old female with PMHx of Afib, CHF, T2DM, GERD, HTN, intellectual disability, JOSE, AICD, hypothyroidism who presented to on 05/29 with abdominal pain. Limited historian due to intellectual disability. She initially presented to [facility] on 05/21 with n/v/dand abdominal pain. [...] Rate: 109 bpm RR Interval: 548 msec FL Interval: 0 msec QRS Duration: 149 msec QT Interval: 398 msec QTC Interval: 462 msec P-R-T Bentley: 0 - 96 - 89 degrees IMPRESSION: ATRIAL FIBRILLATION WITH RAPID VENTRICULAR RESPONSE BORDERLINE RIGHT AXIS DEVIATION [QRS AXIS > 90] INTRAVENTRICULAR CONDUCTION DELAY [130+ ms QRS DURATION] ABNORMAL ECG Unchanged compared to an EKG done earlier on May 30, 2024 Electronically Signed By: Dr. Shiloh Muhammad [facility] CT Chest WO Contrast Result Date: 05/30/2024 [...] Complete W Doppler/CF Result Date: 05/30/2024 Narrative: [place] [address] Echocardiogram Report Patient Name: LEI RODRIGUEZ V : 1960 Study Date: 05/30/2024 7:47:08 AM Gender: F Tech: [place]ILHERME Location: [id number] Ref Provider: TY MCFARLAND Height(Cm): 165 BSA: [...] 33.1 percent AV Mean PG 3 mmHg OCZRk1P 5.71 [ 3.80 - 5.20 ] cm [...] Rate: 86 bpm RR Interval: 697 msec FL Interval: 0 msec QRS Duration: 145 msec QT Interval: 438 msec QTC Interval: 481 msec P-R-T Bentley: 0 - 101 - 95 degrees IMPRESSION: ATRIAL FIBRILLATION RIGHT AXIS DEVIATION [QRS AXIS > 100] INTRAVENTRICULAR CONDUCTION DELAY [130+ ms QRS DURATION] ABNORMAL ECG Unchanged compared to 05/29/2021 Electronically Signed By: Dr. Shiloh Muhammad [facility] CT Chest PE (CTA) W Contrast Result Date: 05/30/2024 Narrative: EXAMINATION: CT CHEST PE (CTA) W CONTRAST HISTORY: Chest pain ORDER DATE: 05/30/2024 3:20AM TECHNIQUE: CT chest images were acquired using a chest angiographic protocol with 3-D imaging optimized for PE is obtained [id number] mL of Optiray 350 IV. 2D Coronal [...] findings as described above. Stat report by [facility] . Electronically signed by: Andrea Abernathy M.D. [...] and partially calcified bulging disc contributing to qoxq-wl-uvafpvfi central spinal stenosis. Disc osteophyte complex also contributing to lnqu-pp-clgdrysb central spinal stenosis at C4-C5 level. No significant disc bulge or herniation. No severe spinal canal stenosis. Uncovertebral joint hypertrophy contributing to multilevel bilateral neural foraminal stenosis. Lungs: Lung apices are normal. Soft tissues: Unremarkable. Impression: No acute cervical spine injury. Stat report by [facility] Stat report by [facility] Electronically signed by: Andrea Abernathy M.D. CT [...] No acute intracranial findings. Stat report by [facility] Electronically signed by: Andrea Abernathy M.D. ECG 12 lead Result Date: 05/30/2024 Narrative: Vent Rate: 93 bpm RR Interval: 645 msec FL Interval: 0 msec QRS Duration: 97 msec QT Interval: 197 msec QTC Interval: 247 msec P-R-T Bentley: 0 - 118 - 0 degrees IMPRESSION: [...] aureus MSSA. From 05/21 and 05/22. Imaging [facility] echo reported as Tricuspid valve vegetation. [...] unknown date so far will follow-up with [facility]. 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 She underwent CHANCE, with no visible [...] Monitor fever curve and WBC count. Called [facility] blood cultures 05/25 NG. blood cultures were positive for Staph aureus 05/21 and 05/22 Blood cultures were negative at outside hospital from 05/25, [facility] CT abdomen and [...] Clinic. Will follow. Eben Pettit MD 06/07/2024 [facility] Office: [phone] Fax: [phone] Voice recognition software was used to complete this document, therefore, university extension specialist variances may occur. * Ranjana Nichols COTA - 06/07/2024 10:08 AM CDT Occupational Therapy NOTE / SESSION TYPE: DAILY PROGRESS / TREATMENT Patient's Name: Lei Rodriguez Age / Sex: 63 y.o. / female Room: [id number] : 1960 Date of service: 06/07/24 TIME [...] Hypotension Past Medical History: Diagnosis Date A-fib (CMS/HCC) (HCC) CHF (congestive heart failure) ([facility]) ([facility]) Diabetes mellitus ([facility]) GERD (gastroesophageal reflux disease) Hypertension Intellectual disability OAB (overactive bladder) Sleep apnea Thyroid disease Past Surgical History: Procedure Laterality Date CARDIAC DEFIBRILLATOR PLACEMENT CHOLECYSTECTOMY INSERT / REPLACE / REMOVE PACEMAKER IR PICC LINE PLACEMENT > 5 YEARS N/A 06/05/2024 OTHER SURGICAL HISTORY 05/31/2024 CHANCE/CARDIOVERSION Precautions (including weight-bearing): Fall risk and Bed / chair alarm Subjective: Oh yea, Thank you Therapy Pain: Pre-therapy pain level: [...] session: Yes Completed patient handoff and notified MANAGER MOBILITY / RN, name: Shereen, of patient's location [...] - 06/07/2024 6:17 AM CDT Cardiology follow-up note- [facility] Patient was seen examined in room 825. She got her hair braided on Tuesday afternoon by her nurse. She is sitting in the recliner and is [...] mcg total) by mouth every morning multivit vltsblat-hwyo-RS-calcium (THERA-M) 9 mg iron-400 mcg tablet Take 1 tablet by mouth daily omeprazole (PriLOSEC) 20 mg capsule Take 1 capsule (20 mg total) by mouth daily Xarelto 20 mg tablet Take 1 tablet (20 mg total) by mouth daily with dinner Current Facility-Administered Medications: carvediloL (COREG) tablet 6.25 mg, 6.25 mg, oral, BID with meals (bkfst, dinner), Raji Hollis MD, 6.25 mg at 06/06/24 0913 ceFAZolin (ANCEF) 2,000 mg/100 mL in dextrose (premix) 2,000 mg, 2,000 mg, intravenous, Q8H GALINA, Mike Hollis MD, Last Rate: 200 mL/hr at 06/07/2413, 2,000 mg at 06/07/24612 dextrose oral liquid [...] DIURETIC, Mike Hollis MD, 40 mg at 06/06/24913 glucagon injection 1 mg, 1 mg, intramuscular, Q30 Min PRN, Mike Hollis MD HYDROcodone-acetaminophen (NORCO) 5-325 mg per tablet 1 tablet, 1 tablet, oral, QID PRN, Mike Hollis MD, 1 tablet at 06/06/24 191 insulin glargine (LANTUS, SEMGLEE) 100 unit/mL injection 18 Units, 18 Units, subcutaneous, QAM, Elly Julian MD, 18 Units at 06/06/2414 insulin lispro (HumaLOG, ADMELOG) 100 unit/mL injection 0-4 Units, 0-4 Units, subcutaneous, Nightly, Mike Hollis MD, 1 Units at 06/05/245 insulin lispro (HumaLOG, ADMELOG) 100 unit/mL injection 0-5 Units, 0-5 Units, subcutaneous, TID with meals, Mike Hollis MD, 3 Units at 06/06/24 1239 insulin lispro (HumaLOG, ADMELOG) 100 unit/mL injection 10 Units, 10 Units, subcutaneous, TID with meals, Elly Julian MD, 10 Units at 06/06/24 165 levothyroxine (SYNTHROID) tablet 75 mcg, 75 mcg, oral, Daily - 0600, Mike Hollis MD, 75 mcg at 06/07/24 06 midodrine (PROAMATINE) tablet 5 mg, 5 mg, [...] BID, Mike Hollis MD, 1 tablet at 06/06/242121 sodium chloride 0.9% flush 5-10 mL, 5-10 mL, intra-catheter, Q12H GALINAWilver Sumbul, MD, 10 mL at 06/06/242122 sodium chloride [...] Rate: 78 bpm RR Interval: 763 msec FL Interval: 0 msec QRS Duration: 154 msec QT Interval: 473 msec QTC Interval: 506 msec P-R-T Bentley: 0 - 23 - 94 degrees IMPRESSION: ATRIAL FIBRILLATION Occasional ventricular pacing INDETERMINATE AXIS Left bundle branch block ABNORMAL ECG Electronically Signed By: Dr. Shiloh Muhammad [facility] ASSESSMENT/PLAN: Patient continues to improve daily 1. [...] DAILY PROGRESS / TREATMENT Patient's Name: Lei Rodrgiuez Age / Sex: 63 y.o. / female Room: [place] [address] : 1960 Date of service: 06/06/24 TIME IN: 1325 TIME OUT: 1350 Patient Active Problem List Diagnosis Endocarditis SOB (shortness of breath) Acute on chronic systolic congestive heart failure (CMS/HCC) (HCC) Neck pain Hyponatremia Chronic a-fib (CMS/HCC) ([facility]) Type 2 diabetes mellitus, with long-term current use of insulin (HCC) Hypothyroid JOSE (obstructive sleep apnea) Diabetes mellitus with hyperglycemia (CMS/HCC) ([facility]) Past Medical History: Diagnosis Date A-fib (CMS/HCC) (HCC) CHF (congestive heart failure) (CMS/HCC) ([facility]) Diabetes mellitus (HCC) GERD (gastroesophageal reflux disease) [...] session: Yes Completed patient handoff and notified MANAGER MOBILITY / RN, name: Eulalia, of patient's location [...] to intellectual disability. She initially presented to [facility] on 05/21 with n/v/dand abdominal pain. [...] Rate: 109 bpm RR Interval: 548 msec FL Interval: 0 msec QRS Duration: 149 msec QT Interval: 398 msec QTC Interval: 462 msec P-R-T Bentley: 0 - 96 - 89 degrees IMPRESSION: ATRIAL FIBRILLATION WITH RAPID VENTRICULAR RESPONSE BORDERLINE RIGHT AXIS DEVIATION [QRS AXIS > 90] INTRAVENTRICULAR CONDUCTION DELAY [130+ ms QRS DURATION] ABNORMAL ECG Unchanged compared to an EKG done earlier on May 30, 2024 Electronically Signed By: Dr. Shiloh Muhammad [facility] CT Chest WO Contrast Result Date: 05/30/2024 [...] Complete W Doppler/CF Result Date: 05/30/2024 Narrative: [place] [id number] Echocardiogram Report Patient Name: LEI RODRIGUEZ V : 1960 Study Date: 05/30/2024 7:47:08 AM Gender: F Tech: GUILHERME Location: [id number] Ref Provider: TY MCFARLAND Height(Cm): 165 BSA: [...] in the medical record on 05/30/2024 at [facility]. Electronically signed by: Abilio Post M.D. ECG 12 lead Result Date: 05/30/2024 Narrative: Vent Rate: 86 bpm RR Interval: 697 msec FL Interval: 0 msec QRS Duration: 145 msec QT Interval: 438 msec QTC Interval: 481 msec P-R-T Bentley: 0 - 101 - 95 degrees IMPRESSION: ATRIAL FIBRILLATION RIGHT AXIS DEVIATION [QRS AXIS > 100] INTRAVENTRICULAR CONDUCTION DELAY [130+ ms QRS DURATION] ABNORMAL ECG Unchanged compared to 05/29/2021 Electronically Signed By: Dr. Shiloh Muhammad [facility] CT Chest PE (CTA) W Contrast Result Date: 05/30/2024 Narrative: EXAMINATION: CT CHEST PE (CTA) W CONTRAST HISTORY: Chest pain ORDER DATE: 05/30/2024 3:20AM TECHNIQUE: CT chest images were acquired using a chest angiographic protocol with 3-D imaging optimized for PE is obtained [id number] mL of Optiray 350 IV. 2D Coronal [...] findings as described above. Stat report by [facility] . Electronically signed by: Andrea Abenrathy M.D. CT Cervical Spine WO Contrast Result [...] and partially calcified bulging disc contributing to oxqy-ei-dsinvghm central spinal stenosis. Disc osteophyte complex also contributing to xeqm-tp-ptqjldbe central spinal stenosis at C4-C5 level. No significant disc bulge or herniation. No severe spinal canal stenosis. Uncovertebral joint hypertrophy contributing to multilevel bilateral neural foraminal stenosis. Lungs: Lung apices are normal. Soft tissues: Unremarkable. Impression: No acute cervical spine injury. Stat report by [facility] Stat report by [facility] Electronically signed by: Andrea Abernathy M.D. CT [...] No acute intracranial findings. Stat report by [facility] Electronically signed by: Andrea Abernathy M.D. ECG 12 lead Result Date: 05/30/2024 Narrative: Vent Rate: 93 bpm RR Interval: 645 msec FL Interval: 0 msec QRS Duration: 97 msec QT Interval: 197 msec QTC Interval: 247 msec P-R-T Bentley: 0 - 118 - 0 degrees IMPRESSION: [...] administration at home, d/w sister Dilia and rn field case manager. CXR 4-53-cmozijlhqprb-requested repeat CXR which was reviewed, looks good. [...] Hyponatremia-monitor Coleen Samuels M.D. * Dinorah Birmingham, SENIOR [employer]INE[employer] - 06/06/2024 12:02 PM CDT Physical Therapy PT PROGRESS NOTE PATIENT'S NAME:Lei Rodriguez :1960 AGE:63 y.o. ROOM:[place] [address] Past Medical History: Diagnosis Date A-fib ([facility]) ([facility]) CHF (congestive heart failure) ([facility]) ([facility]) Diabetes mellitus ([facility]) GERD (gastroesophageal reflux disease) Hypertension Intellectual disability OAB (overactive bladder) Sleep apnea Thyroid disease Past Surgical History: Procedure Laterality Date CARDIAC DEFIBRILLATOR PLACEMENT CHOLECYSTECTOMY INSERT / REPLACE / REMOVE PACEMAKER IR PICC LINE PLACEMENT > 5 YEARS N/A 06/05/2024 OTHER SURGICAL HISTORY 05/31/2024 CHANCE/CARDIOVERSION Patient Active Problem List Diagnosis Endocarditis SOB (shortness of breath) Acute on chronic systolic congestive heart failure ([facility]) ([facility]) Neck pain Hyponatremia Chronic a-fib ([facility]) ([facility]) Type 2 diabetes mellitus, with long-term current use of insulin ([facility]) Hypothyroid JOSE (obstructive sleep apnea) Diabetes mellitus with hyperglycemia ([facility]) ([facility]) TIME IN: 1203 TIME OUT: 1213 SUBJECTIVE [...] (from Physical Therapy) Active Problems Problem: [place] [facility] Start Date: 06/02/24 Goal Start Date Expected End Date End Date PT [facility] [place] 06/02/24 06/09/24 -- Goal Details: Perform bed mobility with modified indep assist. Progressing Goal Start Date Expected End Date End Date PT [facility] 2 06/02/24 06/09/24 -- Goal Details: Perform functional transfers with modified indep assist. Progressing Goal Start Date Expected End Date End Date PT [facility] 3 06/02/24 06/09/24 -- Goal Details: Gait 150' with WW with modified indep assist. Progressing Goal Start Date Expected End Date End Date PT [facility] 4 06/02/24 06/09/24 -- Goal Details: Perform 1 step with modified indep assist. Not assessed this session due to EKG procedure needing to be performed in room Goal Start Date Expected End Date End Date PT [facility] 5 06/02/24 06/09/24 -- Goal Details: Perform LE HEP with SBA Not assessed this session If this is the last note, please consider this the discharge summary. Cosigned by Lilly Lewis PT at 06/06/2024 1:39 PM CDT * [...] Units 06/06/24 0359 06/05/24 0031 06/04/24 0453 BUN SERUM mg/dL 20 18 18 CREATININE mg/dL 0.68 0.68 0.72 Lab Results Component Value Date ALT <5 (L) 06/06/2024 AST 16 06/06/2024 ALKPHOS 238 (H) 06/06/2024 BILITOT 0.4 06/06/2024 Cultures Blood cultures 05/30 no growth so far Outside hospital 01/11 blood cultures reported to be positive for Staph aureus MSSA. From 05/21 and 05/22. Imaging [facility] echo reported as Tricuspid valve vegetation. [...] unknown date so far will follow-up with [facility]. 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 She underwent CHANCE, with no visible [...] Monitor fever curve and WBC count. Called [facility] blood cultures 05/25 NG. blood cultures were [...] course. Will follow. Eben Pettit MD 06/06/2024 [facility] Office: [phone] Fax: [phone] Voice recognition software was used to complete this document, therefore, university extension specialist variances may occur. * Sandro Hong MD - 06/06/2024 10:22 AM CDT [facility] - Cardiology [facility] Progress Note Admit Date: 05/29/2024 5:34 PM @HDAYS@ PCP: Oswaldo Serrano MD Patient seen and examined Chart , telemtry reviewed Symptoms Patient denies chest pain, dyspnea, palpitations, sweating or syncope.Sitting on side of bed Data Vitals: 06/06/24 0018 06/06/24 0400 06/06/24 0600 06/06/24 0910 BP: 111/54 101/62 105/57 BP Location: Left arm Left arm Left arm Patient Position: Sitting Pulse: 96 85 85 Resp: 18 18 18 Temp: 36.7 ??C (98 ??F) [...] found for: T3FREE No results found for: V8TEYWN Pain Score: 10 - Worst possible pain [...] normal S1 and S2, without rub, gallopsPSM 11/15 Abdomen: soft without mass, non-tender, with normal [...] - 06/06/2024 8:22 AM CDT Cardiology follow-up note-[facility] Patient was seen examined in room 825. [...] mcg total) by mouth every morning multivit bdofprur-kwgu-OK-calcium (THERA-M) 9 mg iron-400 mcg tablet Take [...] TID, Mike Hollis MD, 30 mg at 127 docusate sodium (COLACE) capsule 100 mg, 100 mg, oral, BID PRN, Mike Hollis MD, 100 mgat 06/04/24 1043 dofetilide (TIKOSYN) capsule 500 mcg, 500 mcg, oral, BID, Ty Mcfarland MD, 500 mcg at 06/05/24 2126 escitalopram (LEXAPRO) tablet 10 mg, 10 mg, oral, Daily, Mike Hollis MD, 10 mg at 06/05/24 0833 ferrous sulfate delayed release tablet 65 mg of elemental iron, 65 mg of elemental iron, oral, Daily with breakfast, iMke Hollis MD, 65 mg of elemental iron [...] Nightly, Mike Hollis MD, 1 Units at 06/05/24 2125 insulin lispro (HumaLOG, ADMELOG) 100 unit/mL injection 0-5 Units, 0-5 Units, subcutaneous, TID with meals, Mike Hollis MD, 1 Units at 06/05/24 1723 insulin lispro (HumaLOG, ADMELOG) 100 unit/mL injection 10 Units, 10 Units, subcutaneous, TID with meals, Elly Julian MD, 10 Units at 06/05/24 1722 levothyroxine (SYNTHROID) tablet 75 mcg, 75 mcg, oral, Daily - 0600, Mike Hollis MD, 75 mcg at 06/06/24 0441 nortriptyline (PAMELOR) capsule 10 mg, 10 mg, oral, Nightly, Mike Hollis MD, 10 mg at 06/05/24 2126 ondansetron (ZOFRAN) injection 4 mg, 4 mg, [...] Rate: 86 bpm RR Interval: 697 msec FL Interval: 0 msec QRS Duration: 157 msec QT Interval: 470 msec QTC Interval: 513 msec P-R-T Bentley: 0 - 38 - 88 degrees IMPRESSION: [...] on chronic systolic congestive heart failure (CMS/HCC) ([facility]) Neck pain Hyponatremia Chronic a-fib ([facility]) ([facility]) Type 2 diabetes mellitus, with long-term current use of insulin ([facility]) Hypothyroid JOSE (obstructive sleep apnea) Diabetes mellitus with hyperglycemia ([facility]) ([facility]) ASSESSMENT/PLAN: 1. Questionable endocarditis -no vegetations seen [...] complaint:Abdominal pain Subjective: D/w sister Dilia and rn field case manager plan is PICC line and [...] thyroid disease, AICD, PPM, Cholecystectomy. Presented to [facility] on with nausea, vomiting, diarrhea, and [...] comfortable with antibiotic administration at home, d/w rn field case managerspa assistant manager of Systems Gen: No fever, No [...] Rate: 109 bpm RR Interval: 548 msec FL Interval: 0 msec QRS Duration: 149 msec QT Interval: 398 msec QTC Interval: 462 msec P-R-T Bentley: 0 - 96 - 89 degrees IMPRESSION: ATRIAL FIBRILLATION WITH RAPID VENTRICULAR RESPONSE BORDERLINE RIGHT AXIS DEVIATION [QRS AXIS > 90] INTRAVENTRICULAR CONDUCTION DELAY [130+ ms QRS DURATION] ABNORMAL ECG Unchanged compared to an EKG done earlier on May 30, 2024 Electronically Signed By: Dr. Shiloh Muhammad [facility] CT Chest WO Contrast Result Date: 05/30/2024 [...] Complete W Doppler/CF Result Date: 05/30/2024 Narrative: [place] [address] Echocardiogram Report Patient Name: LEI RODRIGUEZ V : 1960 Study Date: 05/30/2024 7:47:08 AM Gender: F Tech: Location: [place] [address] Ref Provider: TY MCFARLAND Height(Cm): 165 BSA: [...] Rate: 86 bpm RR Interval: 697 msec FL Interval: 0 msec QRS Duration: 145 msec QT Interval: 438 msec QTC Interval: 481 msec P-R-T Bentley: 0 - 101 - 95 degrees IMPRESSION: ATRIAL FIBRILLATION RIGHT AXIS DEVIATION [QRS AXIS > 100] INTRAVENTRICULAR CONDUCTION DELAY [130+ ms QRS DURATION] ABNORMAL ECG Unchanged compared to 05/29/2021 Electronically Signed By: Dr. Shiloh Muhammad [facility] CT Chest PE (CTA) W Contrast Result Date: 05/30/2024 Narrative: EXAMINATION: CT CHEST PE (CTA) W CONTRAST HISTORY: Chest pain ORDER DATE: 05/30/2024 3:20AM TECHNIQUE: CT chest images were acquired using a chest angiographic protocol with 3-D imaging optimized for PE is obtained [id number] mL of Optiray 350 IV. 2D Coronal [...] findings as described above. Stat report by [facility] . Electronically signed by: Andrea Abernathy M.D. [...] and partially calcified bulging disc contributing to hqdz-ty-hqzgvtot central spinal stenosis. Disc osteophyte complex also contributing to cmwg-ae-fahfwgri central spinal stenosis at C4-C5 level. No significant disc bulge or herniation. No severe spinal canal stenosis. Uncovertebral joint hypertrophy contributing to multilevel bilateral neural foraminal stenosis. Lungs: Lung apices are normal. Soft tissues: Unremarkable. Impression: No acute cervical spine injury. Stat report by [facility] Stat report by [facility] Electronically signed by: Andrea Abrenathy M.D. CT Head WO Contrast Result Date: [...] No acute intracranial findings. Stat report by [facility] Electronically signed by: Andrea Abernathy M.D. ECG 12 lead Result Date: 05/30/2024 Narrative: Vent Rate: 93 bpm RR Interval: 645 msec FL Interval: 0 msec QRS Duration: 97 msec QT Interval: 197 msec QTC Interval: 247 msec P-R-T Bentley: 0 - 118 - 0 degrees IMPRESSION: [...] administration at home, d/w sister Dilia and rn field case manager. CXR 4-59-fjgqaxwlibgt-requested repeat CXR in a.m. post PICC. Acute [...] 18 20 CREATININE mg/dL 0.68 0.72 0.80 RZA-SZL-IIKMTOZ mL/min/1.73 m2 >90 >90 83 CALCIUM mg/dL [...] give patient a 15 gram carbohydrate snack. 05/29/242200 Allergies: Reviewed. IMPRESSION: RD screened Pt for [...] Peg interested in Out Patient Nutrition services. PHONG entered referral. Weights/Vitals Height Weight (LB) Weight [...] Summary: Assess for nutrition changes, Education, nutrition, Spearman diet preferences within the limits of nutrition [...] and drink water throughout the day. Call [phone] to speak with a dietitian about anydiet related concerns. Recommend to follow up with outpatient nutrition counseling, ask your doctorfor referral and call [phone] to make an appointment. Additional Resources [place] [employer]: www.diabetes.org/nutrition [place] [employer]: www.heart.org/en/healthy-living/healthy-eating Nutrition Follow-Up : 06/13/24 [...] aureus MSSA. From 05/21 and 05/22. Imaging [facility] echo reported as Tricuspid valve vegetation. [...] unknown date so far will follow-up with [facility]. 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 She underwent CHANCE, with no visible [...] fever curve and WBC count. Called microlab [facility] blood cultures 05/25 NG. blood cultures were positive for Staph aureus 05/21 and 05/22 requested fax from [facility]. Blood cultures were negative at outside hospital from 05/25, blood cultures remain negative at thisfacility from 05/30 CT abdomen and pelvis With no significant infectious findings Continue Ancef, 4 weeks total due to presence of ICD, end date 06/22 PICC line could not be placed bedside, ordered IR guided PICC line placement. Will follow. Eben Pettit MD 06/05/2024 [facility] Office: [phone] Fax: [phone] Voice recognition software was used to complete this document, therefore, university extension specialist variances may occur. * Cora Clarke PTA - 06/05/2024 9:54 AM CDT Physical Therapy Attempted at 9:54 AM Pt unavailable secondary to bedside procedure. Will re-attempt as time permits and pt available. Cora Clarke PTA 06/05/24 9:54 AM * Ty Mcfarland MD - 06/05/2024 7:31 AM CDT Images from the original note were not included. Cardiology follow-up note-[facility] Patient was seen examined By Dr. [...] mcg total) by mouth every morning multivit tuomkfzz-tpkf-IS-calcium (THERA-M) 9 mg iron-400 mcg tablet Take [...] Daily, Mike Hollis MD, 10 mg at 06/04/24 08 ferrous sulfate delayed release tablet 65 mg [...] QAM, Elly Julian MD, 18 Units at 06/04/24 0806 insulin lispro (HumaLOG, ADMELOG) 100 unit/mL injection [...] Elly Julian MD, 10 Units at 06/04/24 170 levothyroxine (SYNTHROID) tablet 75 mcg, 75 mcg, [...] flush 5-10 mL, 5-10 mL, intra-catheter, Q12H Wilver MOJICA Sumbul, MD, 10 mL at 06/04/242039 sodium [...] Rate: 86 bpm RR Interval: 697 msec FL Interval: 0 msec QRS Duration: 157 msec QT Interval: 470 msec QTC Interval: 513 msec P-R-T Bentley: 0 - 38 - 88 degrees IMPRESSION: ATRIAL FIBRILLATION WITH ABERRANT CONDUCTION OR VENTRICULAR PREMATURE COMPLEXES LEFT BUNDLE BRANCH BLOCK [120+ ms QRS DURATION, 80+ ms Q/S IN V1/V2, 85+ ms R IN I/aVL/V5/V6] ABNORMAL ECG Compared to prior EKG, ventricular pacing is no longer present Electronically Signed By: Antonio Carlos MD Blood culture Blood Order: [id number] Collected 05/30/2024 04:28 Status: Final result Visible to patient: No (inaccessible in MyChart) Specimen Information: Blood 0 Result Notes Component Report Final Report: No growth Comment: Testing performed by: [facility], [address] [place] [address] Narrative Performed by: From a different site [...] organism identification may be performed using the [employer] Gram-Positive Blood Culture Assay. This assay detects microbial DNA in positive blood culture broth via hybridization of target DNA to capture oligonucleotides on a microarray. This assay has been cleared by the [place] Food and Drug Administration and its performance characteristics have been verified by the [facility]. 5. For questions about this culture, contact the Microbiology Laboratory at [phone]. Interpretive data was last revised on 2020. [...] comfortable with antibiotic administration at home, d/w rn field case manager Interval History: As per HPI-Ms Lei Rodriguez is a 63 y.o. female with history of afib, CHF, DM, GERD,HTN, Intellectual disability, OAB, JOSE, thyroid disease, AICD, PPM, Cholecystectomy. Presented to [facility] on with nausea, vomiting, diarrhea, and [...] ID, attempt to get culture results from [facility] as per ID, CT abdomen/pelvis no evidence [...] Rate: 109 bpm RR Interval: 548 msec FL Interval: 0 msec QRS Duration: 149 msec QT Interval: 398 msec QTC Interval: 462 msec P-R-T Bentley: 0 - 96 - 89 degrees IMPRESSION: ATRIAL FIBRILLATION WITH RAPID VENTRICULAR RESPONSE BORDERLINE RIGHT AXIS DEVIATION [QRS AXIS > 90] INTRAVENTRICULAR CONDUCTION DELAY [130+ ms QRS DURATION] ABNORMAL ECG Unchanged compared to an EKG done earlier on May 30, 2024 Electronically Signed By: Dr. Shiloh Muhammad [facility] CT Chest WO Contrast Result Date: 05/30/2024 [...] Complete W Doppler/CF Result Date: 05/30/2024 Narrative: [place] [address] Echocardiogram Report Patient Name: LEI RODRIGUEZ V : 1960 Study Date: 05/30/2024 7:47:08 AM Gender: F Tech: GUILHERME Location: [place] [address] Ref Provider: TY MCFARLAND Height(Cm): 165 BSA: [...] 33.1 percent AV Mean PG 3 mmHg [id number] 5.71 [ 3.80 - 5.20 ] cm [...] Rate: 86 bpm RR Interval: 697 msec FL Interval: 0 msec QRS Duration: 145 msec QT Interval: 438 msec QTC Interval: 481 msec P-R-T Bentley: 0 - 101 - 95 degrees IMPRESSION: ATRIAL FIBRILLATION RIGHT AXIS DEVIATION [QRS AXIS > 100] INTRAVENTRICULAR CONDUCTION DELAY [130+ ms QRS DURATION] ABNORMAL ECG Unchanged compared to 05/29/2021 Electronically Signed By: Dr. Shiloh Muhammad [facility] CT Chest PE (CTA) W Contrast Result Date: 05/30/2024 Narrative: EXAMINATION: CT CHEST PE (CTA) W CONTRAST HISTORY: Chest pain ORDER DATE: 05/30/2024 3:20AM TECHNIQUE: CT chest images were acquired using a chest angiographic protocol with 3-D imaging optimized for PE is obtained [id number] mL of Optiray 350 IV. 2D Coronal [...] findings as described above. Stat report by [facility] . Electronically signed by: Andrea Abernathy M.D. [...] and partially calcified bulging disc contributing to avlc-lk-mgqiprpw central spinal stenosis. Disc osteophyte complex also contributing to rqmt-do-drduooph central spinal stenosis at C4-C5 level. No significant disc bulge or herniation. No severe spinal canal stenosis. Uncovertebral joint hypertrophy contributing to multilevel bilateral neural foraminal stenosis. Lungs: Lung apices are normal. Soft tissues: Unremarkable. Impression: No acute cervical spine injury. Stat report by [facility] Stat report by [facility] Electronically signed by: Andrea Abernathy M.D. CT [...] No acute intracranial findings. Stat report by [facility] Electronically signed by: Andrea Abernathy M.D. ECG 12 lead Result Date: 05/30/2024 Narrative: Vent Rate: 93 bpm RR Interval: 645 msec FL Interval: 0 msec QRS Duration: 97 msec QT Interval: 197 msec QTC Interval: 247 msec P-R-T Bentley: 0 - 118 - 0 degrees IMPRESSION: [...] on Lantus and SSI. Added scheduled Humalog 8- .Increased lantus dose and scheduled Humalog dose [...] NOTE PATIENT'S NAME:Lei Rodriguez :1960 AGE:63 y.o. ROOM:[place] [address] Past Medical History: Diagnosis Date A-fib (CMS/HCC) ([facility]) CHF (congestive heart failure) (CMS/HCC) ([facility]) Diabetes mellitus ([facility]) GERD (gastroesophageal reflux disease) Hypertension Intellectual disability OAB (overactive bladder) Sleep apnea Thyroid disease Past Surgical History: Procedure Laterality Date CARDIAC DEFIBRILLATOR PLACEMENT CHOLECYSTECTOMY INSERT / REPLACE / REMOVE PACEMAKER OTHER SURGICAL HISTORY 05/31/2024 CHANCE/CARDIOVERSION Patient Active Problem List Diagnosis Endocarditis SOB (shortness of breath) Acute on chronic systolic congestive heart failure (CMS/HCC) ([facility]) Neck pain Hyponatremia Chronic a-fib (CMS/HCC) ([facility]) Type 2 diabetes mellitus, with long-term current use of insulin ([facility]) Hypothyroid JOSE (obstructive sleep apnea) Diabetes mellitus with hyperglycemia ([facility]/HCC) ([facility]) TIME IN: 1605 TIME OUT: 1620 SUBJECTIVE [...] (from Physical Therapy) Active Problems Problem[place] [facility] [place]: 06/02/24 Goal Start Date Expected End Date End Date PT [facility] 1 06/02/24 06/09/24 -- Goal Details: Perform bed mobility with modified indep assist. Progressing Goal Start Date Expected End Date End Date PT [facility] 2 06/02/24 06/09/24 -- Goal Details: Perform functional transfers with modified indep assist. Progressing Goal Start Date Expected End Date End Date PT [facility] 3 06/02/24 06/09/24 -- Goal Details: Gait 150' with WW with modified indep assist. Progressing Goal Start Date Expected End Date End Date PT [facility] 4 06/02/24 06/09/24 -- Goal Details: Perform 1 step with modified indep assist. Progressing Goal Start Date Expected End Date End Date PT [facility] [place] 06/02/24 06/09/24 -- Goal Details: Perform [...] aureus MSSA. From 05/21 and 05/22. Imaging [facility] echo reported as Tricuspid valve vegetation. [...] unknown date so far will follow-up with [facility]. 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 She underwent CHANCE, with no visible [...] fever curve and WBC count. Called microlab [facility] blood cultures 05/25 NG. Apparently blood cultures were positive for Staph aureus 05/21 and 05/22 requested fax from [facility]. They could not tell methe susceptibilities. For H&P reported oxacillin susceptible Staph aureus. Blood cultures were negative at outside hospital from 05/25, [facility] CT abdomen and pelvis With no significant infectious findings Continue Ancef, 4 weeks total due to presence of ICD, end date 06/22 PICC line is ordered. Will follow. Eben Pettit MD 06/04/2024 [facility] Office: [phone] Fax: [phone] Voice recognition software was used to complete this document, therefore, university extension specialist variances may occur. * Maria Luisa Sierra, OT - 06/04/2024 11:13 AM CDT Occupational Therapy NOTE / SESSION TYPE: Initial Evaluation Patient Name: Lei Rodriguez Date of : 1960 Age / Sex: 63 y.o. / female Room: [facility]/[id number] Admit Date: 05/29/2024 Date of Service: 06/04/24 Time In: 1112 Time Out: 1135 Primary Diagnosis: Endocarditis HPI: Lei Rodriguez is a 63 y.o. female who presents from [facility] 05/29/2024 with abdominal pain . Initially she presented to [facility] 05/21/24 with N/V , diarrhea, abdominal [...] PPM Past Medical History: Diagnosis Date A-fib (CMS/HCC) [...] using WW, does minimal cooking Sister performs marketing teacher and drives patient. Sister assists with finances. [...] session: Yes Completed patient handoff and notified MANAGER MOBILITY / RN, name: Veena, of patient's location and functional status upon completion of session Vital Signs: No symptoms or c/o distress Cognitive / Perceptual Assessment: A&O x4, follows 1 step commands 100%, pleasant and cooperative throughout UE ROM / Strength / Coordination: (A)ROM - Right: WFL Strength - Right: 4/5 (A)ROM - Left: WFL Strength - Left: 4/5 Lean Specialist Strength (Right): good Lean Specialist Strength (Left): good Right Serial Opposition: Intact [...] End Date OT STG - Misc 1 06/04/24 06/11/24 -- Goal Details: Patient will complete functional transfers using least restrictive device with modified independence 1 time. Goal Start Date Expected End Date End Date OT STG - Misc 2 06/04/24 06/11/24 -- Goal Details: Patient will complete all components of toileting (toileting hygiene and clothing management) with modified independence 1 time. Goal Start Date Expected End Date End Date OT STG - Mis 3 06/04/24 06/11/24 -- Goal Details: Patient will complete UB dressing, LB dressing, and footwear with modified independence 1 time. Goal Start Date Expected End Date End Date OT STG - Mis 4 06/04/24 06/11/24 -- Goal Details: Patient will complete HEP to improve BUE strength/endurance and ADL participation with min verbal cues 1 time. Goal Start Date Expected End Date End Date OT STG - Mis 5 06/04/24 06/11/24 -- Goal Details: Patient will complete functional/meaningful task in standing for 3-5 minutes with modified independence for balance one time. If this is the last note, consider this the discharge summary Maria Luisa Sierra OT 06/04/24 * Ty Mcfarland MD - 06/04/2024 6:36 AM CDT EP/cardiology follow-up note-SL Note summary In future would benefit from [...] mcg total) by mouth every morning multivit jdmemibh-gref-XV-calcium (THERA-M) 9 mg iron-400 mcg tablet Take [...] Mike Hollis MD, 10 mg at 06/03/24 0742 ferrous sulfate delayed release tablet 65 mg of elemental iron, 65 mg of elemental iron, oral, Daily with breakfast, Mike Hollis MD, 65 mg of elemental iron at 06/03/24 0742 furosemide (LASIX) 10 mg/mL injection 40 mg, [...] unit/mL injection 18 Units, 18 Units, subcutaneous, QAEliel Urbina Savitha Venkatkrishna, MD, 18 Units at 06/03/24 0743 insulin lispro (HumaLOG, ADMELOG) 100 unit/mL injection 0-4 Units, 0-4 Units, subcutaneous, Nightly, Mike Hollis MD, 1 Units at 06/01/24 220 insulin lispro (HumaLOG, ADMELOG) 100 unit/mL injection [...] Mike Hollis MD, 75 mcg at 06/04/24 050 nortriptyline (PAMELOR) capsule 10 mg, 10 mg, oral, Nightly, Mike Hollis MD, 10 mg at 06/03/242035 ondansetron (ZOFRAN) injection 4 mg, 4 mg, intravenous, Q6H PRN, Mike Hollis MD pantoprazole DR (PROTONIX) extended release tablet 40 mg, 40 mg, oral, Daily, Mike Hollis MD, 40 mg at 06/03/24 0743 polyethylene glycol (MIRALAX) packet 17 g, 17 g, oral, Daily PRN, Mike Hollis MD rivaroxaban (XARELTO) tablet 20 mg, 20 mg, oral, Daily with dinner, 20 mg at 06/03/241658 FOLLOWED BY [DISCONTINUED] rivaroxaban (XARELTO) tablet 20 [...] Rate: 86 bpm RR Interval: 697 msec FL Interval: 0 msec QRS Duration: 157 msec QT Interval: 470 msec QTC Interval: 513 msec P-R-T Bentley: 0 - 38 - 88 degrees IMPRESSION: [...] WBC - Supportive care Virginie Simon NP [facility] Office: [phone] 06/03/2024 Cosigned by Stevie Munoz MD at [...] Rate: 76 bpm RR Interval: 782 msec FL Interval: 0 msec QRS Duration: 158 msec QT Interval: 494 msec QTC Interval: 525 msec P-R-T Bentley: 0 - 116 - 120 degrees IMPRESSION: [...] Rate: 102 bpm RR Interval: 584 msec FL Interval: 0 msec QRS Duration: 149 msec QT Interval: 387 msec QTC Interval: 446 msec P-R-T Bentley: 0 - 115 - 66 degrees IMPRESSION: ATRIAL FIBRILLATION WITH RAPID VENTRICULAR RESPONSE WITH ABERRANT CONDUCTION OR VENTRICULAR PREMATURE COMPLEXES INDETERMINATE AXIS INTRAVENTRICULAR CONDUCTION DELAY [130+ ms QRS DURATION] ABNORMAL ECG NO CHANGE FROM PREVIOUS TRACING NOTED Electronically Signed By: Antonio Carlos MD ECG 12 lead Result Date: 06/01/2024 Narrative: Vent Rate: 83 bpm RR Interval: 716 msec FL Interval: 0 msec QRS Duration: 154 msec QT Interval: 409 msec QTC Interval: 449 msec P-R-T Bentley: 0 - 123 - 189 degrees IMPRESSION: ATRIAL FIBRILLATION INTRAVENTRICULAR CONDUCTION DELAY LATERAL MYOCARDIAL INFARCTION , OF INDETERMINATE AGE Electronically Signed By: Cristino Kingsley MD, [facility] ECG 12 lead Result Date: 05/31/2024 Narrative: Vent Rate: 74 bpm RR Interval: 810 msec FL Interval: 0 msec QRS Duration: 151 msec QT Interval: 449 msec QTC Interval: 476 msec P-R-T Bentley: 0 - 102 - 146 degrees IMPRESSION: VENTRICULAR PACED RHYTHM Electronically Signed By: Cristino Kingsley MD, [facility] ECG 12 lead Result Date: 05/31/2024 Narrative: Vent Rate: 76 bpm RR Interval: 785 msec FL Interval: 0 msec QRS Duration: 150 msec QT Interval: 471 msec QTC Interval: 501 msec P-R-T Bentley: 0 - 80 - 97 degrees IMPRESSION: ATRIAL FIBRILLATION WITH ABERRANT CONDUCTION OR VENTRICULAR PREMATURE COMPLEXES INTRAVENTRICULAR CONDUCTION DELAY [130+ ms QRS DURATION] ABNORMAL ECG Electronically Signed By: Dr. Shiloh Muhammad [facility] ECG 12 lead Result Date: 05/30/2024 Narrative: Vent Rate: 109 bpm RR Interval: 548 msec FL Interval: 0 msec QRS Duration: 149 msec QT Interval: 398 msec QTC Interval: 462 msec P-R-T Bentley: 0 - 96 - 89 degrees IMPRESSION: ATRIAL FIBRILLATION WITH RAPID VENTRICULAR RESPONSE BORDERLINE RIGHT AXIS DEVIATION [QRS AXIS > 90] INTRAVENTRICULAR CONDUCTION DELAY [130+ ms QRS DURATION] ABNORMAL ECG Unchanged compared to an EKG done earlier on May 30, 2024 Electronically Signed By: Dr. Shiloh Muhammad [facility] CT Chest WO Contrast Result Date: 05/30/2024 [...] Complete W Doppler/CF Result Date: 05/30/2024 Narrative: [place] [address] Echocardiogram Report Patient Name: LEI RODRIGUEZ V : 1960 Study Date: 05/30/2024 7:47:08 AM Gender: F Tech: GUILHERME Location: [id number] Ref Provider: TY MCFARLAND Height(Cm): 165 BSA: [...] in the medical record on 05/30/2024 at [facility]. Electronically signed by: Abilio Post M.D. ECG 12 lead Result Date: 05/30/2024 Narrative: Vent Rate: 86 bpm RR Interval: 697 msec FL Interval: 0 msec QRS Duration: 145 msec QT Interval: 438 msec QTC Interval: 481 msec P-R-T Bentley: 0 - 101 - 95 degrees IMPRESSION: ATRIAL FIBRILLATION RIGHT AXIS DEVIATION [QRS AXIS > 100] INTRAVENTRICULAR CONDUCTION DELAY [130+ ms QRS DURATION] ABNORMAL ECG Unchanged compared to 05/29/2021 Electronically Signed By: Dr. Shiloh Muhammad [facility] CT Chest PE (CTA) W Contrast Result Date: 05/30/2024 Narrative: EXAMINATION: CT CHEST PE (CTA) W CONTRAST HISTORY: Chest pain ORDER DATE: 05/30/2024 3:20AM TECHNIQUE: CT chest images were acquired using a chest angiographic protocol with 3-D imaging optimized for PE is obtained [id number] mL of Optiray 350 IV. 2D Coronal [...] findings as described above. Stat report by [facility] . Electronically signed by: Andrea Abernathy M.D. [...] and partially calcified bulging disc contributing to fttp-jg-ffanflfu central spinal stenosis. Disc osteophyte complex also contributing to kzue-es-xjsxknvn central spinal stenosis at C4-C5 level. No significant disc bulge or herniation. No severe spinal canal stenosis. Uncovertebral joint hypertrophy contributing to multilevel bilateral neural foraminal stenosis. Lungs: Lung apices are normal. Soft tissues: Unremarkable. Impression: No acute cervical spine injury. Stat report by [facility] Stat report by [facility] Electronically signed by: Andrea Abernathy M.D. CT [...] No acute intracranial findings. Stat report by [facility] Electronically signed by: Andrea Abernathy M.D. ECG 12 lead Result Date: 05/30/2024 Narrative: Vent Rate: 93 bpm RR Interval: 645 msec FL Interval: 0 msec QRS Duration: 97 msec QT Interval: 197 msec QTC Interval: 247 msec P-R-T Bentley: 0 - 118 - 0 degrees IMPRESSION: [...] Rate: 76 bpm RR Interval: 782 msec FL Interval: 0 msec QRS Duration: 158 msec QT Interval: 494 msec QTC Interval: 525 msec P-R-T Bentley: 0 - 116 - 120 degrees IMPRESSION: [...] -per hospitalist Hypothyroid -treated Cristian Avery MD [facility] 06/03/2024 11:52 AM [...] thyroid disease, AICD, PPM, Cholecystectomy. Presented to [facility] on with nausea, vomiting, diarrhea, and [...] Rate: 109 bpm RR Interval: 548 msec FL Interval: 0 msec QRS Duration: 149 msec QT Interval: 398 msec QTC Interval: 462 msec P-R-T Bentley: 0 - 96 - 89 degrees IMPRESSION: ATRIAL FIBRILLATION WITH RAPID VENTRICULAR RESPONSE BORDERLINE RIGHT AXIS DEVIATION [QRS AXIS > 90] INTRAVENTRICULAR CONDUCTION DELAY [130+ ms QRS DURATION] ABNORMAL ECG Unchanged compared to an EKG done earlier on May 30, 2024 Electronically Signed By: Dr. Shiloh Muhammad [facility] CT Chest WO Contrast Result Date: 05/30/2024 [...] Complete W Doppler/CF Result Date: 05/30/2024 Narrative: [place] [address] Echocardiogram Report Patient Name: LEI RODRIGUEZ V : 1960 Study Date: 05/30/2024 7:47:08 AM Gender: F Tech: Location: [place] [address] Ref Provider: TY MCFARLAND Height(Cm): 165 BSA: [...] 33.1 percent AV Mean PG 3 mmHg SIGGx5A 5.71 [ 3.80 - 5.20 ] cm [...] Rate: 86 bpm RR Interval: 697 msec FL Interval: 0 msec QRS Duration: 145 msec QT Interval: 438 msec QTC Interval: 481 msec P-R-T Bentley: 0 - 101 - 95 degrees IMPRESSION: ATRIAL FIBRILLATION RIGHT AXIS DEVIATION [QRS AXIS > 100] INTRAVENTRICULAR CONDUCTION DELAY [130+ ms QRS DURATION] ABNORMAL ECG Unchanged compared to 05/29/2021 Electronically Signed By: Dr. Shiloh Muhammad [facility] CT Chest PE (CTA) W Contrast Result Date: 05/30/2024 Narrative: EXAMINATION: CT CHEST PE (CTA) W CONTRAST HISTORY: Chest pain ORDER DATE: 05/30/2024 3:20AM TECHNIQUE: CT chest images were acquired using a chest angiographic protocol with 3-D imaging optimized for PE is obtained [id number] mL of Optiray 350 IV. 2D Coronal [...] findings as described above. Stat report by [facility] . Electronically signed by: Andrea Abernathy M.D. [...] and partially calcified bulging disc contributing to qfjn-la-udusiesw central spinal stenosis. Disc osteophyte complex also contributing to moqq-wa-czsblulm central spinal stenosis at C4-C5 level. No significant disc bulge or herniation. No severe spinal canal stenosis. Uncovertebral joint hypertrophy contributing to multilevel bilateral neural foraminal stenosis. Lungs: Lung apices are normal. Soft tissues: Unremarkable. Impression: No acute cervical spine injury. Stat report by [facility] Stat report by [facility] Electronically signed by: Andrea Abernathy M.D. CT [...] No acute intracranial findings. Stat report by [facility] Electronically signed by: Andrea Abernathy M.D. ECG 12 lead Result Date: 05/30/2024 Narrative: Vent Rate: 93 bpm RR Interval: 645 msec FL Interval: 0 msec QRS Duration: 97 msec QT Interval: 197 msec QTC Interval: 247 msec P-R-T Bentley: 0 - 118 - 0 degrees IMPRESSION: [...] mL/min/1.73 m2 83 ECG 12 lead Order: [id number] Status: Final result Visible to patient: No (inaccessible in MyChart) Next appt: None 0 Result Notes Details Narrative Vent Rate: 86 bpm RR Interval: 697 msec FL Interval: 0 msec QRS Duration: 157 msec QT Interval: 470 msec QTC Interval: 513 msec P-R-T Bentley: 0 - 38 - 88 degrees IMPRESSION: ATRIAL FIBRILLATION WITH ABERRANT CONDUCTION OR VENTRICULAR PREMATURE COMPLEXES LEFT BUNDLE BRANCH BLOCK [120+ ms QRS DURATION, 80+ ms Q/S IN V1/V2, 85+ ms R IN I/aVL/V5/V6] ABNORMAL ECG Compared to prior EKG, ventricular pacing is no longer present Electronically Signed By: Antonio Carlos MD Specimen Collected: 06/02/24 11:12 Last Resulted: 06/02/24 12:30 [facility] [address] [place] [address] XR Chest 1 View Status: Final result [...] d/w SW Interval History: As per HPI-Ms Lei Rodriguez is a 63 y.o. female with history of afib, CHF, DM, GERD,HTN, Intellectual disability, OAB, JOSE, thyroid disease, AICD, PPM, Cholecystectomy. Presented to [facility] on with nausea, vomiting, diarrhea, and [...] Sitting Pulse: 90 100 80 83 Resp: 28 26 26 Temp: 36.8 ??C (98.2 ??F) 36.8 ??C [...] Rate: 109 bpm RR Interval: 548 msec FL Interval: 0 msec QRS Duration: 149 msec QT Interval: 398 msec QTC Interval: 462 msec P-R-T Bentley: 0 - 96 - 89 degrees IMPRESSION: ATRIAL FIBRILLATION WITH RAPID VENTRICULAR RESPONSE BORDERLINE RIGHT AXIS DEVIATION [QRS AXIS > 90] INTRAVENTRICULAR CONDUCTION DELAY [130+ ms QRS DURATION] ABNORMAL ECG Unchanged compared to an EKG done earlier on May 30, 2024 Electronically Signed By: Dr. Shiloh Muhammad [facility] CT Chest WO Contrast Result Date: 05/30/2024 [...] Complete W Doppler/CF Result Date: 05/30/2024 Narrative: [place] [address] Echocardiogram Report Patient Name: LEI RODRIGUEZ V : 1960 Study Date: 05/30/2024 7:47:08 AM Gender: F Tech: Location: [place] [address] Ref Provider: TY MCFARLAND Height(Cm): 165 BSA: [...] 33.1 percent AV Mean PG 3 mmHg TFEXs8D 5.71 [ 3.80 - 5.20 ] cm [...] Rate: 86 bpm RR Interval: 697 msec FL Interval: 0 msec QRS Duration: 145 msec QT Interval: 438 msec QTC Interval: 481 msec P-R-T Bentley: 0 - 101 - 95 degrees IMPRESSION: ATRIAL FIBRILLATION RIGHT AXIS DEVIATION [QRS AXIS > 100] INTRAVENTRICULAR CONDUCTION DELAY [130+ ms QRS DURATION] ABNORMAL ECG Unchanged compared to 05/29/2021 Electronically Signed By: Dr. Shiloh Muhammad [facility] CT Chest PE (CTA) W Contrast Result Date: 05/30/2024 Narrative: EXAMINATION: CT CHEST PE (CTA) W CONTRAST HISTORY: Chest pain ORDER DATE: 05/30/2024 3:20AM TECHNIQUE: CT chest images were acquired using a chest angiographic protocol with 3-D imaging optimized for PE is obtained [id number] mL of Optiray 350 IV. 2D Coronal [...] findings as described above. Stat report by [facility] . Electronically signed by: Andrea Abernathy M.D. [...] and partially calcified bulging disc contributing to eppq-pm-atpwvios central spinal stenosis. Disc osteophyte complex also contributing to kipw-yr-tuegzrje central spinal stenosis at C4-C5 level. No significant disc bulge or herniation. No severe spinal canal stenosis. Uncovertebral joint hypertrophy contributing to multilevel bilateral neural foraminal stenosis. Lungs: Lung apices are normal. Soft tissues: Unremarkable. Impression: No acute cervical spine injury. Stat report by [facility] Stat report by [facility] Electronically signed by: Andrea Abernathy M.D. CT [...] No acute intracranial findings. Stat report by [facility] Electronically signed by: Andrea Abernathy M.D. ECG 12 lead Result Date: 05/30/2024 Narrative: Vent Rate: 93 bpm RR Interval: 645 msec FL Interval: 0 msec QRS Duration: 97 msec QT Interval: 197 msec QTC Interval: 247 msec P-R-T Bentley: 0 - 118 - 0 degrees IMPRESSION: [...] EVALUATION PATIENT'S NAME:Lei Rodriguez :1960 AGE:63 y.o. ROOM:[place] [address] TIME IN: 1333 TIME OUT:1414 CURRENT DIAGNOSIS AND HOSPITAL COURSE: Endocarditis (63 yo female who presents from [facility] 05/29/2024 with abdominal pain . Initially she presented to [facility] 05/21/24 with N/V , diarrhea, abdominal [...] on chronic systolic congestive heart failure (CMS/HCC) ([facility]) Neck pain Hyponatremia Chronic a-fib ([facility]) ([facility]) Type 2 diabetes mellitus, with long-term current use of insulin ([facility]) Hypothyroid JOSE (obstructive sleep apnea) Diabetes mellitus with hyperglycemia ([facility]) ([facility]) Past Medical History: Diagnosis Date A-fib ([facility]) ([facility]) CHF (congestive heart failure) ([facility]) ([facility]) Diabetes mellitus ([facility]) GERD (gastroesophageal reflux disease) Hypertension Intellectual [...] indep with mobility using WW, Sister performs marketing teacher and drives patient. Sister assists with finances. [...] 19 = Likely require inpatient rehab or [place] [facility] [place] placement at discharge APPEARANCE/POSTURE (end of session): patient repositioned in chair with chair alarm activated and call light in reach. BROWN Curiel given hand-off report. EDUCATION: role of PT [...] End Date End Date [place] [facility] [place] 06/09/24 -- Goal Details: Perform bed mobility with modified indep assist. Goal Start Date Expected End Date End Date PT [facility] [place] [facility] [place] 06/02[place] 06/09/24 -- Goal Details: Perform functional transfers with modified indep assist. Goal Start Date Expected End Date End Date PT [facility] [place] [facility] [place] 06/02/24 06/09/24 -- Goal Details: Gait 150' with WW with modified indep assist. Goal Start Date Expected End Date End Date PT [facility] [place] [facility] [place] 06/02/24 06/09/24 -- Goal Details: Perform 1 step with modified indep assist. Goal Start Date Expected End Date End Date PT [facility] [place] [facility] [place] 06/02/24 06/09/24 -- Goal Details: Perform LE HEP with SBA Refer to multi-disciplinary care plan section for PT specific goals. If this is the last note, please consider this the discharge summary. * Jagdeep Wagoner NP - 06/02/2024 11:40 AM CDT Infectious Disease Progress Note Lei Rdoriguez Age: 63 y.o. Admit Date: 05/29/2024 Today's [...] 30 Minutes intravenous Every 8 hours scheduled 05/29/242200 Objective: Vitals: 24hr Min/Max: Temp Min: 36.6 ??C (97.9 ??F) Max: 37.1 ??C (98.7 ??F) Pulse Min: 85 Max: 100 BP Min: 87/56 Max: 144/77 Resp Min: 18 Max: 28 SpO2 Min: 90 % Max: 95 % Most Recent : Vitals: 06/01/24201306/02/24 0024 06/02/24 04306/02/24 0804 BP: 144/77 113/67 136/71 (!) 87/56 BP Location: Left arm Left arm Left arm Right arm Patient Position: Lying Lying Lying Sitting Pulse: 87 85 90 100 Resp: Temp: 36.8 ??C (98.3 ??F) 36.6 ??C [...] WBC - Supportive care Jagdeep Wagoner NP [facility] Office: [phone] 06/02/2024 Cosigned by Manuel Ludwig MD at [...] Rate: 76 bpm RR Interval: 782 msec FL Interval: 0 msec QRS Duration: 158 msec QT Interval: 494 msec QTC Interval: 525 msec P-R-T Bentley: 0 - 116 - 120 degrees IMPRESSION: [...] Rate: 102 bpm RR Interval: 584 msec FL Interval: 0 msec QRS Duration: 149 msec QT Interval: 387 msec QTC Interval: 446 msec P-R-T Bentley: 0 - 115 - 66 degrees IMPRESSION: ATRIAL FIBRILLATION WITH RAPID VENTRICULAR RESPONSE WITH ABERRANT CONDUCTION OR VENTRICULAR PREMATURE COMPLEXES INDETERMINATE AXIS INTRAVENTRICULAR CONDUCTION DELAY [130+ ms QRS DURATION] ABNORMAL ECG NO CHANGE FROM PREVIOUS TRACING NOTED Electronically Signed By: Antonio Carlos MD ECG 12 lead Result Date: 06/01/2024 Narrative: Vent Rate: 83 bpm RR Interval: 716 msec FL Interval: 0 msec QRS Duration: 154 msec QT Interval: 409 msec QTC Interval: 449 msec P-R-T Bentley: 0 - 123 - 189 degrees IMPRESSION: ATRIAL FIBRILLATION INTRAVENTRICULAR CONDUCTION DELAY LATERAL MYOCARDIAL INFARCTION , OF INDETERMINATE AGE Electronically Signed By: Cristino Kingsley MD, [facility] ECG 12 lead Result Date: 05/31/2024 Narrative: Vent Rate: 74 bpm RR Interval: 810 msec FL Interval: 0 msec QRS Duration: 151 msec QT Interval: 449 msec QTC Interval: 476 msec P-R-T Bentley: 0 - 102 - 146 degrees IMPRESSION: VENTRICULAR PACED RHYTHM Electronically Signed By: Cristino Kingsley MD, [facility] ECG 12 lead Result Date: 05/31/2024 Narrative: Vent Rate: 76 bpm RR Interval: 785 msec FL Interval: 0 msec QRS Duration: 150 msec QT Interval: 471 msec QTC Interval: 501 msec P-R-T Bentley: 0 - 80 - 97 degrees IMPRESSION: ATRIAL FIBRILLATION WITH ABERRANT CONDUCTION OR VENTRICULAR PREMATURE COMPLEXES INTRAVENTRICULAR CONDUCTION DELAY [130+ ms QRS DURATION] ABNORMAL ECG Electronically Signed By: Dr. Shiloh Muhammad [facility] ECG 12 lead Result Date: 05/30/2024 Narrative: Vent Rate: 109 bpm RR Interval: 548 msec FL Interval: 0 msec QRS Duration: 149 msec QT Interval: 398 msec QTC Interval: 462 msec P-R-T Bentley: 0 - 96 - 89 degrees IMPRESSION: ATRIAL FIBRILLATION WITH RAPID VENTRICULAR RESPONSE BORDERLINE RIGHT AXIS DEVIATION [QRS AXIS > 90] INTRAVENTRICULAR CONDUCTION DELAY [130+ ms QRS DURATION] ABNORMAL ECG Unchanged compared to an EKG done earlier on May 30, 2024 Electronically Signed By: Dr. Shiloh Muhammad [facility] CT Chest WO Contrast Result Date: 05/30/2024 [...] Complete W Doppler/CF Result Date: 05/30/2024 Narrative: [place] [address] Echocardiogram Report Patient Name: LEI RODRIGUEZ V : 1960 Study Date: 05/30/2024 7:47:08 AM Gender: F Tech: Location: [id number] Ref Provider: TY MCFARLAND Height(Cm): 165 BSA: [...] effusion. Electronically Signed By: Coleen Kwok DO, [facility], ANDREE, MELISSA 2024-05-30 09:18:05 CDT CC: CC: [...] Rate: 86 bpm RR Interval: 697 msec FL Interval: 0 msec QRS Duration: 145 msec QT Interval: 438 msec QTC Interval: 481 msec P-R-T Bentley: 0 - 101 - 95 degrees IMPRESSION: ATRIAL FIBRILLATION RIGHT AXIS DEVIATION [QRS AXIS > 100] INTRAVENTRICULAR CONDUCTION DELAY [130+ ms QRS DURATION] ABNORMAL ECG Unchanged compared to 05/29/2021 Electronically Signed By: Dr. Shiloh Muhammad [facility] CT Chest PE (CTA) W Contrast Result Date: 05/30/2024 Narrative: EXAMINATION: CT CHEST PE (CTA) W CONTRAST HISTORY: Chest pain ORDER DATE: 05/30/2024 3:20AM TECHNIQUE: CT chest images were acquired using a chest angiographic protocol with 3-D imaging optimized for PE is obtained [id number] mL of Optiray 350 IV. 2D Coronal [...] findings as described above. Stat report by [facility] . Electronically signed by: Andrea Abernathy M.D. [...] and partially calcified bulging disc contributing to hrjv-qe-ykwyhymj central spinal stenosis. Disc osteophyte complex also contributing to mfnx-kz-prcjiodl central spinal stenosis at C4-C5 level. No significant disc bulge or herniation. No severe spinal canal stenosis. Uncovertebral joint hypertrophy contributing to multilevel bilateral neural foraminal stenosis. Lungs: Lung apices are normal. Soft tissues: Unremarkable. Impression: No acute cervical spine injury. Stat report by [facility] Stat report by [facility] Electronically signed by: Andrea Abernathy M.D. CT [...] No acute intracranial findings. Stat report by [facility] Electronically signed by: Andrea Abernathy M.D. ECG 12 lead Result Date: 05/30/2024 Narrative: Vent Rate: 93 bpm RR Interval: 645 msec FL Interval: 0 msec QRS Duration: 97 msec QT Interval: 197 msec QTC Interval: 247 msec P-R-T Bentley: 0 - 118 - 0 degrees IMPRESSION: [...] Rate: 76 bpm RR Interval: 782 msec FL Interval: 0 msec QRS Duration: 158 msec QT Interval: 494 msec QTC Interval: 525 msec P-R-T Bentley: 0 - 116 - 120 degrees IMPRESSION: [...] -per hospitalist Hypothyroid -treated Russell Cifuentes MD [facility] 06/02/2024 11:18 AM * Elly Julian MD - 06/01/2024 8:45 PM CDT Daily Progress Chief complaint:Abdominal pain Subjective: Patient lying in bed, d/w ID, attempt to get culture results from [facility] as per ID, CT abdomen/pelvis no evidence of source of infection, still has volume overload, continue IV lasix Interval History: As per HPI-Ms Lei Rodriguez is a 63 y.o. female with history of afib, CHF, DM, GERD,HTN, Intellectual disability, OAB, JOSE, thyroid disease, AICD, PPM, Cholecystectomy. Presented to [facility] on with nausea, vomiting, diarrhea, and [...] Rate: 109 bpm RR Interval: 548 msec FL Interval: 0 msec QRS Duration: 149 msec QT Interval: 398 msec QTC Interval: 462 msec P-R-T Bentley: 0 - 96 - 89 degrees IMPRESSION: ATRIAL FIBRILLATION WITH RAPID VENTRICULAR RESPONSE BORDERLINE RIGHT AXIS DEVIATION [QRS AXIS > 90] INTRAVENTRICULAR CONDUCTION DELAY [130+ ms QRS DURATION] ABNORMAL ECG Unchanged compared to an EKG done earlier on May 30, 2024 Electronically Signed By: Dr. Shiloh Muhammad [facility] CT Chest WO Contrast Result Date: 05/30/2024 [...] Complete W Doppler/CF Result Date: 05/30/2024 Narrative: [place] [address] Echocardiogram Report Patient Name: LEI RODRIGUEZ V : 1960 Study Date: 05/30/2024 7:47:08 AM Gender: F Tech: GUILHERME Location: [id number] Ref Provider: TY MCFARLAND Height(Cm): 165 BSA: [...] 33.1 percent AV Mean PG 3 mmHg [id number] 5.71 [ 3.80 - 5.20 ] cm [...] effusion. Electronically Signed By: Coleen Kwok DO, FACDarlene, ANDREE, MELISSA 2024-05-30 09:18:05 CDT [...] in the medical record on 05/30/2024 at [facility]. Electronically signed by: Abilio Post M.D. ECG 12 lead Result Date: 05/30/2024 Narrative: Vent Rate: 86 bpm RR Interval: 697 msec FL Interval: 0 msec QRS Duration: 145 msec QT Interval: 438 msec QTC Interval: 481 msec P-R-T Bentley: 0 - 101 - 95 degrees IMPRESSION: ATRIAL FIBRILLATION RIGHT AXIS DEVIATION [QRS AXIS > 100] INTRAVENTRICULAR CONDUCTION DELAY [130+ ms QRS DURATION] ABNORMAL ECG Unchanged compared to 05/29/2021 Electronically Signed By: Dr. Shiloh Muhammad [facility] CT Chest PE (CTA) W Contrast Result [...] findings as described above. Stat report by [facility] . Electronically signed by: Andrea Abernathy M.D. [...] and partially calcified bulging disc contributing to vsms-hs-qoaxvuxd central spinal stenosis. Disc osteophyte complex also contributing to zfqb-jp-zvwucmkw central spinal stenosis at C4-C5 level. No significant disc bulge or herniation. No severe spinal canal stenosis. Uncovertebral joint hypertrophy contributing to multilevel bilateral neural foraminal stenosis. Lungs: Lung apices are normal. Soft tissues: Unremarkable. Impression: No acute cervical spine injury. Stat report by [facility] Stat report by [facility] Electronically signed by: Andrea Abernathy M.D. CT [...] No acute intracranial findings. Stat report by [facility] Electronically signed by: Andrea Abernathy M.D. ECG 12 lead Result Date: 05/30/2024 Narrative: Vent Rate: 93 bpm RR Interval: 645 msec FL Interval: 0 msec QRS Duration: 97 msec QT Interval: 197 msec QTC Interval: 247 msec P-R-T Bentley: 0 - 118 - 0 degrees IMPRESSION: [...] set up and family member training, d/w rn field case manager Barriers to Discharge:As above, PICC [...] Labs Reviewed. Recent Labs Lab Units 06/01/24 04405/31/24 0305 05/30/24 0935 WBC K/cumm 7.0 7.9 10.6* HEMOGLOBIN g/dL 11.5* 11.9 11.7* HEMATOCRIT % 36.0 37.0 36.2 PLATELETS K/cumm 337 309 309 Recent Labs Lab Units 06/01/2444805/31/24 0305 05/30/24 0428 BUN SERUM mg/dL 13 14 10 CREATININE mg/dL 0.67 0.69 0.74 Lab Results Component Value Date ALT 5 (L) 06/01/2024 AST 20 06/01/2024 ALKPHOS 330 (H) 06/01/2024 BILITOT 0.9 06/01/2024 Cultures Blood cultures 05/30 no growth so far Outside hospital 01/11 blood cultures reported to be positive for Staph aureus MSSA. From 05/21 and 05/22. [facility] echo reported as Tricuspid valve vegetation. CT [...] unknown date so far will follow-up with [facility]. 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 She underwent CHANCE, with no visible [...] fever curve and WBC count. Called microlab [facility] blood cultures 05/25 NG. Apparently blood cultures were positive for Staph aureus 05/21 and 05/22 requested fax from [facility]. They could not tell methe susceptibilities. For H&P reported oxacillin susceptible Staph aureus. Will obtain CT abdomen and pelvis. End date for Ancef 06/08, if no other metastatic infections on CT abdomen and pelvis. PICC line is ordered. Thanks for Consulting Infectious Diseases. Will follow. D/w Dr. Julian. Eben Pettit MD 06/01/2024 [facility] Office: [phone] Fax: [phone] Voice recognition software was used to complete this document, therefore, university extension specialist variances may occur. * Daniel Harris Jr., [...] hospitalist Hypothyroid -treated Daniel Harris Jr., MD [place] [facility] 06/01/2024 10:56 AM * [...] thyroid disease, AICD, PPM, Cholecystectomy. Presented to [facility] on with nausea, vomiting, diarrhea, and [...] Lying Pulse: 73 73 77 77 Resp: 20 20 18 Temp: 36.9 ??C (98.5 ??F) 37.1 ??C [...] Rate: 109 bpm RR Interval: 548 msec FL Interval: 0 msec QRS Duration: 149 msec QT Interval: 398 msec QTC Interval: 462 msec P-R-T Bentley: 0 - 96 - 89 degrees IMPRESSION: ATRIAL FIBRILLATION WITH RAPID VENTRICULAR RESPONSE BORDERLINE RIGHT AXIS DEVIATION [QRS AXIS > 90] INTRAVENTRICULAR CONDUCTION DELAY [130+ ms QRS DURATION] ABNORMAL ECG Unchanged compared to an EKG done earlier on May 30, 2024 Electronically Signed By: Dr. Shiloh Muhammad [facility] CT Chest WO Contrast Result Date: 05/30/2024 [...] Complete W Doppler/CF Result Date: 05/30/2024 Narrative: [place] [address] Echocardiogram Report Patient Name: LEI RODRIGUEZ V : 1960 Study Date: 05/30/2024 7:47:08 AM Gender: F Tech: GUILHERME Location: [id number] Ref Provider: TY MCFARLAND Height(Cm): 165 BSA: [...] 33.1 percent AV Mean PG 3 mmHg RRNMe0Z 5.71 [ 3.80 - 5.20 ] cm [...] m/s LA Volume Index 22.99 [ 16.00 -34.00 ] cc/m2 MV A Peak Chadd 0.31 [...] effusion. Electronically Signed By: Coleen Kwok DO, [facility], ANDREE, MELISSA 2024-05-30 09:18:05 CDT CC: CC: [...] Rate: 86 bpm RR Interval: 697 msec FL Interval: 0 msec QRS Duration: 145 msec QT Interval: 438 msec QTC Interval: 481 msec P-R-T Bentley: 0 - 101 - 95 degrees IMPRESSION: ATRIAL FIBRILLATION RIGHT AXIS DEVIATION [QRS AXIS > 100] INTRAVENTRICULAR CONDUCTION DELAY [130+ ms QRS DURATION] ABNORMAL ECG Unchanged compared to 05/29/2021 Electronically Signed By: Dr. Shiloh Muhammad [facility] CT Chest PE (CTA) W Contrast Result Date: 05/30/2024 Narrative: EXAMINATION: CT CHEST PE (CTA) W CONTRAST HISTORY: Chest pain ORDER DATE: 05/30/2024 3:20AM TECHNIQUE: CT chest images were acquired using a chest angiographic protocol with 3-D imaging optimized for PE is obtained [id number] mL of Optiray 350 IV. 2D Coronal [...] findings as described above. Stat report by [facility] . Electronically signed by: Andrea Abernathy M.D. [...] and partially calcified bulging disc contributing to rpkj-af-klctnjob central spinal stenosis. Disc osteophyte complex also contributing to ipbd-sh-gtvqwrkk central spinal stenosis at C4-C5 level. No significant disc bulge or herniation. No severe spinal canal stenosis. Uncovertebral joint hypertrophy contributing to multilevel bilateral neural foraminal stenosis. Lungs: Lung apices are normal. Soft tissues: Unremarkable. Impression: No acute cervical spine injury. Stat report by [facility] Stat report by [facility] Electronically signed by: Andrea Abernathy M.D. CT [...] No acute intracranial findings. Stat report by [facility] Electronically signed by: Andrea Abernathy M.D. ECG 12 lead Result Date: 05/30/2024 Narrative: Vent Rate: 93 bpm RR Interval: 645 msec FL Interval: 0 msec QRS Duration: 97 msec QT Interval: 197 msec QTC Interval: 247 msec P-R-T Bentley: 0 - 118 - 0 degrees IMPRESSION: [...] mL/min/1.73 m2 >90 ECG 12 lead Order: [id number] Status: Preliminary result Visible to patient: No (not released) Next appt: None 0 Result Notes Details Narrative Vent Rate: 74 bpm RR Interval: 810 msec FL Interval: 0 msec QRS Duration: 151 msec QT Interval: 449 msec QTC Interval: 476 msec P-R-T Bentley: 0 - 102 - 146 degrees IMPRESSION: [...] original note were not included. Cardiology follow-up note-[facility] Transesophageal echo and synchronized cardioversion is planned for today. Were no changes seen review of systems for physical exam. [facility] initial Consult summary Questionable Endocarditis, will [...] thyroid disease, AICD, PPM, Cholecystectomy. Presented to [facility] on with nausea, vomiting, diarrhea, and [...] mcg total) by mouth every morning multivit lggisroq-bgae-SV-calcium (THERA-M) 9 mg iron-400 mcg tablet Take [...] Nightly, Mike Hollis MD, 2 Units at 05/30/24 2159 insulin lispro (HumaLOG, ADMELOG) 100 unit/mL injection 0-5 Units, 0-5 Units, subcutaneous, TID with meals, Mike Hollis MD, 1 Units at 05/30/24 1723 insulin lispro [...] Rate: 76 bpm RR Interval: 785 msec FL Interval: 0 msec QRS Duration: 150 msec QT Interval: 471 msec QTC Interval: 501 msec P-R-T Bentley: 0 - 80 - 97 degrees IMPRESSION: ATRIAL FIBRILLATION WITH ABERRANT CONDUCTION OR VENTRICULAR PREMATURE COMPLEXES INTRAVENTRICULAR CONDUCTION DELAY [130+ ms QRS DURATION] ABNORMAL ECG Electronically Signed By: Dr. Shiloh Muhammad [facility] Transthoracic Echo (TTE) Complete W Doppler/CF WO [...] Complete W Doppler/CF Study [place] [address] Echocardiogram Report Patient Name: LEI RODRIGUEZ V : 1960 Study Date: 05/30/2024 7:47:08 AM Gender: F Tech: GUILHERME Location: [id number] Ref Provider: TY MCFARLAND Height(Cm): 165 BSA: [...] RUBIO, ANDREE, MELISSA 2024-05-30 09:18:05 CDT CC: Show images for CT Chest WO Contrast Performing Department [facility] [address] [place] [address] CT Chest WO Contrast Status: Final result [...] thyroid disease, AICD, PPM, Cholecystectomy. Presented to [facility] on with nausea, vomiting, diarrhea, and [...] Negative FLU, RSV, COVID EKbpm afib LBBB 01/11 blood cx positive staph aureus Echo: EF [...] Vitals: 05/30/24 0434 05/30/24 1100 05/30/24 1500 05/30/245 BP: 135/84 131/82 122/92 121/75 BP Location: Right arm Right arm Right arm Patient Position: Lying Pulse: 98 100 87 75 Resp: 20 16 16 20 Temp: 36.4 ??C (97.5 ??F) 36.2 ??C [...] Rate: 109 bpm RR Interval: 548 msec FL Interval: 0 msec QRS Duration: 149 msec QT Interval: 398 msec QTC Interval: 462 msec P-R-T Bentley: 0 - 96 - 89 degrees IMPRESSION: ATRIAL FIBRILLATION WITH RAPID VENTRICULAR RESPONSE BORDERLINE RIGHT AXIS DEVIATION [QRS AXIS > 90] INTRAVENTRICULAR CONDUCTION DELAY [130+ ms QRS DURATION] ABNORMAL ECG Unchanged compared to an EKG done earlier on May 30, 2024 Electronically Signed By: Dr. Shiloh Muhammad [facility] CT Chest WO Contrast Result Date: 05/30/2024 [...] Complete W Doppler/CF Result Date: 05/30/2024 Narrative: [place] [address] Echocardiogram Report Patient Name: LEI RODRIGUEZ V : 1960 Study Date: 05/30/2024 7:47:08 AM Gender: F Tech: GUILHERME Location: [id number] Ref Provider: TY MCFARLAND Height(Cm): 165 BSA: [...] 33.1 percent AV Mean PG 3 mmHg [id number] 5.71 [ 3.80 - 5.20 ] cm [...] m/s LA Volume Index 22.99 [ 16.00 -34.00 ] cc/m2 MV A Peak Chadd 0.31 [...] Normal left ventricular wall thickness. Paradoxical septal motionconsistent with IVCD or bundle branch block. Ejection [...] thickness. Paradoxical septal motion consistent with IVCD orbundle branch block. Ejection fraction is measured at 30 %. Normal right ventricular systolic functi on. Pacemaker noted. Normal structure of the mitral valve. Mild to moderate mitral valve regurgitation. The regurgitation jet is eccentrically directed which may underestimate the severity of mitral regurgitation. Tricuspid valve not well visualized. Estimated peak RVSP is 42 mmHg. Mild to moderatetricuspid regurgitation. Trivial pericardial effusion. Electronically Signed By: [...] Rate: 86 bpm RR Interval: 697 msec FL Interval: 0 msec QRS Duration: 145 msec QT Interval: 438 msec QTC Interval: 481 msec P-R-T Bentley: 0 - 101 - 95 degrees IMPRESSION: ATRIAL FIBRILLATION RIGHT AXIS DEVIATION [QRS AXIS > 100] INTRAVENTRICULAR CONDUCTION DELAY [130+ ms QRS DURATION] ABNORMAL ECG Unchanged compared to 05/29/2021 Electronically S[address] By: Dr. Shiloh Muhammad [facility] CT Chest PE (CTA) W Contrast Result [...] well assessed for exclusion of subtle emboli dueto excessive motion. Otherwise centrally no pulmonary artery [...] effusion present. Lymph nodes: Multiple calcified mediastinal andhilar lymph nodes which suggest prior exposure to [...] findings as described above. Stat report by [facility] . Electronically signed by: Andrea Abernathy M.D. [...] and partially calcified bulging disc contributing to fktv-zw-ktfetxum central spinal stenosis. Disc osteophyte complex also contributing to yajs-it-ydgdsnsp central spinal stenosis at C4-C5 level. No significant disc bulge or herniation. No severe spinal canal stenosis. Uncovertebral joint hypertrophy contributing to multilevel bilateral neural foraminal stenosis. Lungs: Lung apices are normal. Soft tissues: Unremarkable. Impression: No acute cervical spine injury. Stat report by [facility] Stat report by [facility] Electronically signed by: Andrea Abernathy M.D. CT [...] No acute intracranial findings. Stat report by [facility] Electronically signed by: Andrea Abernathy M.D. ECG 12 lead Result Date: 05/30/2024 Narrative: Vent Rate: 93 bpm RR Interval: 645 msec FL Interval: 0 msec QRS Duration: 97 msec QT Interval: 197 msec QTC Interval: 247 msec P-R-T Bentley: 0 - 118 - 0 degrees IMPRESSION: [...] evaluated or monitored: Hyperkalemia-resolved Hyponatremia-monitor * Angel Chaudhry [facility] - 05/30/2024 3:35 PM CDT Pharmacy Medication Reconciliation Note Patient Lei Rodriguez is a 63 y.o. female who has been admitted to [facility]. The prior to admission home medication list was reviewed by pharmacy. Prior to Admission medications Medication Sig Start Date End Date Taking? Authorizing Provider BASAGLAR 100 unit/mL (3 mL) pen for injection Inject 18 Units under the skin daily 02/09/24 Yes Nica Muniz MD carvediloL (COREG) 25 mg tablet Take 1 tablet (25 mg total) by mouth 2 (two) times a day with meals05/06/17 Yes Nica Muniz MD dilTIAZem (CARDIZEM) 30 mg tablet Take 1 tablet (30 mg total) by mouth 2 (two) times a day 04/28/17 Yes Nica Muniz MD docusate sodium (COLACE) 100 mg capsule Take 1 capsule (100 mg total) by mouth 2 (two) times a day 09/23/17 Yes Nica Muniz MD Entresto 24-26 mg tablet Take 1 tablet by mouth 2 (two) times a day 09/11/21 Yes Nica Muniz MD escitalopram (LEXAPRO) 10 mg tablet Take 1 tablet (10 mg total) by mouth daily 12/12/23 Yes Nica Muniz MD Farxiga 10 mg tablet Take 1 tablet (10 mg total) by mouth daily 06/01/22 Yes Nica Muniz MD furosemide (LASIX) 40 mg [...] mouth every morning Nica Muniz MD multivit zehulyhr-ijsl-XF-calcium (THERA-M) 9 mg iron-400 mcg tablet Take [...] and prescription fill history Angel Chaudhry, Pharm.D, [facility] 05/30/2024 3:34 PM * Ty Mcfarland MD [...] thyroid disease, AICD, PPM, Cholecystectomy. Presented to [facility] on with nausea, vomiting, diarrhea, and [...] recent labs 05/20 INR 3.9 PTT 50 8/19 WBC 13.3, Hgb 12.4, PLT 258, 74% [...] patient appears to have been admitted to [facility] as above.. I reviewed the patient's vital signs, inpatient meds, outpatient meds, labs, imaging, orders. Past Medical History: Diagnosis Date A-fib (CMS/HCC) [...] on chronic systolic congestive heart failure (CMS/HCC) ([facility]) Neck pain Hyponatremia Chronic a-fib (CMS/HCC) (HCC) [...] complete SW assessment with pt. SW put [facility] resources info in pt's AVS. RISHI Stevenson Statistical Programmer Analyst Case Management * Eben Pettit MD - [...] her sister and hand got admitted to [facility] 05/21, per H and P she was apparently havi ng nausea vomiting and abdominal pain. It is further reported in H and P that she was found to haveendocarditis, and found to have Staph aureus bacteremia there apparently MSSA. Initially she was treated with vancomycin Zosyn and later switched to Ancef, now transferred to [facility] for further evaluation. Cardiology, electrophysiology consulted. Currently [...] 1 tablet 1 tablet oral QID PRN Mike Hollis MD 1 tablet at 05/31/24 1105 [...] 5 Units 5 Units subcutaneous TID with Elly Weeks MD levothyroxine (SYNTHROID) tablet 75 mcg 75 mcg oral Daily - 0600 Mike Hollis MD 75 mcgat 05/31/24 0533 nortriptyline (PAMELOR) capsule 10 mg 10 mg oral Nightly Mike Hollis MD 10 mg at 05/30/242158 ondansetron (ZOFRAN) injection 4 mg 4 mg [...] Labs Reviewed. Recent Labs Lab Units 05/31/24 03005/30/24 0935 05/30/24 0428 WBC K/cumm 7.9 10.6* [...] 05/30 no growth so far Outside hospital 4/4 blood cultures reported to be positive for Staph aureus MSSA. Imaging [facility] echo reported as Tricuspid valve vegetation. [...] unknown date so far will follow-up with [facility]. 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 She underwent CHANCE, with no visible [...] and WBC count. Please obtain records from [facility]. Thanks for Consulting Infectious Diseases. Will follow. Eben Pettit MD 05/31/2024 [facility] Office: [phone] Fax: [phone] Voice recognition software was used to complete this document, therefore, university extension specialist variances may occur. * Merry Nelson NP [...] original note were not included. Cardiology initial Consult-[facility] Reason for Consult: Questionable Endocarditis, presence [...] thyroid disease, AICD, PPM, Cholecystectomy. Presented to [facility] on with nausea, vomiting, diarrhea, and [...] Hollis MD, Last Rate: 200 mL/hr at 05/30/24100, 2,000 mg at 05/30/24 010 dextrose oral [...] Mike Hollis MD, 1 tablet at 05/30/24 0055 insulin glargine (LANTUS, SEMGLEE) 100 unit/mL injection [...] Mike Hollis MD, 10 mg at 05/30/24 0051 ondansetron (ZOFRAN) injection 4 mg, 4 mg, [...] CKMBINDEX , TROPONINT ECG 12 lead Order: [id number] Status: Final result Visible to patient: No [facility] Next appt: None 0 Result Notes Details Narrative Vent Rate: 93 bpm RR Interval: 645 msec FL Interval: 0 msec QRS Duration: 97 msec QT Interval: 197 msec QTC Interval: 247 msec P-R-T Bentley: 0 - 118 - 0 degrees IMPRESSION: [...] for a pain see MAR. * Pauly Wilburn, BROWN - 06/05/2024 3:09 PM CDT Sterile CHG [...] PM CDT Patient approval number: auth # [id number] approved 06/08-06/14 * Plan of Care - Evelyn Ford RN - 06/08/2024 4:39 PM CDT Patient will be discharging to [facility] Call report to [phone] fax [phone] Patient will have to be transported by [facility]. Evelyn Ford Operations Research Manager [phone] * Plan of Care - Lawson Austin RN - 06/08/2024 4:15 PM CDT Goals: Clinical Goals for the Shift: Fall prevention, VSS, blood sugar stable Senior Care Patient Centered Goal for Treatment: Better health, [...] SNF. Report given by Lawson DASILVA to [facility] in [place] to [place] DASILVA Problem: Discharge Planning Goal: [...] for more information this note was sent tothe pac team to address any barriers to her discharging to SNF at [facility]: Lei Rodriguez is a 63 year old female with PMHx of Afib, CHF, T2DM, GERD, HTN, intellectual disability, JOSE, AICD, hypothyroidism who presented to on 05/29 with abdominal pain. Limited historian due to intellectual disability. Evelyn Ford Operations Research Manager [phone] * Plan of Care - Evelyn Ford RN - 06/08/2024 12:06 PM CDT 06/08/24 1206 Discharge Planning Support System Family members Medication Assistance Yes Anticipated discharge level of care group home facility (short term care) Does the [...] planning as needed. Update Attempted to phone Kendal henning [place], was not successful d/t CM being on hold for several minutes. Evelyn Ford Operations Research Manager [phone] * Medical Student - Franky Griffin - [...] to intellectual disability. She initially presented to [facility] on 05/21 with n/v/dand abdominal pain. [...] (CMS/HCC) (HCC) Neck pain Hyponatremia Chronic a-fib (CMS/[facility]) ([facility]) Type 2 diabetes mellitus, with long-term current use of insulin (HCC) Hypothyroid JOSE (obstructive sleep apnea) Diabetes mellitus with hyperglycemia (CMS/[facility]) ([facility]) Traumatic hematoma of right upper arm Hypotension [...] Code status: Full Code Voice recognition software MMAdventureDrop Fluency Direct was used dictate and transcribe this document. J2Ee Java Developer variances may occur. Despite proofreading, typographical errors may occur. IAN Little-FLORA Cosigned by Coleen Samuels MD at 06/08/2024 3:16 PM CDT * Plan of Care - Anat Lebron I. - 06/08/2024 12:41 AM CDT Problem: Discharge Planning Goal: Understanding discharge needs will improve Outcome: Progressing Flowsheets (Taken 05/29/20241952 by Kristy Pepper, BROWN) Understanding of discharge needs will improve: Collaborate [...] patient's pain levels Outcome: Progressing Flowsheets (Taken 06/07/2024 010 by Agnieszka Conroy RN) Ability to identify factors that increase pain levels will improve while working to decrease patients pain levels: Assess pain status Observe non-verbal cues of discomfort, such as restlessness, muscle tension, or altered vital signs Problem: Coping Goal: Ability to cope will improve Outcome: Progressing Flowsheets (Taken 06/07/2024104 by Agnieszka Conroy, BROWN) Ability to cope will Improve: Assess beliefs of pain Problem: Health Behavior Goal: Identification of resources available to assist in meeting health care needs will improve Outcome: Progressing Problem: Cardiovascular Goal: Absence of cardiac dysrhythmias or at baseline Outcome: Progressing Flowsheets (Taken 06/08/2024 0036) Absence of cardiac dysrhythmias or at baseline: [...] Flowsheets (Taken 06/07/2024104 by Agnieszka Conroy, RN) Will remain free from falls: Assess risk factors for falls Implement fall prevention measures Goals: Clinical Goals for the Shift: fall prevention, VSS Senior Care Patient Centered Goal for Treatment: Better health, [place] home Summary: * Plan of Care - Lawson Austin RN - 06/07/2024 2:34 PM CDT Goals: Clinical Goals for the Shift: VS, bathroom assistance, fall preventions, diet, medications, test- CTA Manager Of Distribution Patient Centered Goal for Treatment: Better health, [...] to intellectual disability. She initially presented to [facility] on 05/21 with n/v/dand abdominal pain. [...] showing successful placement. INTERVAL HISTORY Patient had CARDIOTHORACIC PHYSIOTHERAPIST called 06/06 evening for worsening RUE swelling [...] sodium chloride 0.9%, 5-10 mL, intra-catheter, Q12H [facility] Continuous Infusions: PRN Meds:. ??? dextrose, 15 [...] on chronic systolic congestive heart failure (CMS/HCC) ([facility]) Neck pain Hyponatremia Chronic a-fib (CMS/HCC) ([facility]) Type 2 diabetes mellitus, with long-term current use of insulin ([facility]) Hypothyroid JOSE (obstructive sleep apnea) Diabetes mellitus with hyperglycemia (CMS/HCC) ([facility]) Traumatic hematoma of right upper arm Hypotension [...] was used dictate and transcribe this document. J2Ee Java Developer variances may occur. Despite proofreading, typographical errors may occur. IAN Little-IV Cosigned by Coleen Samuels MD at 06/07/2024 [...] assistance, fall preventions, diet, medications, test- CTA Manager Of Distribution Patient Centered Goal for Treatment: Better health, [place] home * Significant Event - ShaynaEdilberto perkins Branden, DO - 06/06/2024 7:04 PM CDT CARDIOTHORACIC PHYSIOTHERAPIST called for worsening RUE swelling and bruising [...] Xarelto for AFib I have drawn a chickahominy indians-eastern division around the hematoma if it continues to expand will need to hold his role toe. Inthe meantime will check a CTA to rule out active bleeding. Pain control with [place]. Given the bloodpressure is soft and patient has been receiving [place] will add on midodrine to compensate for [...] comfort, safety, accuchecks, abx, and pain mangement Senior Care Patient Centered Goal for Treatment: Better health, MA home Summary: Patient has seen with bruising [...] RN - 06/06/2024 5:39 PM CDT 06/06/24 1738 Discharge Planning Support System Family members Medication Assistance Yes Anticipated discharge level of care group home facility (short term care) Does the [...] with discharge planning as needed. Evelyn Ford Operations Research Manager [phone] * Plan of Care - Ivette Harrington MSW - 06/06/2024 12:36 PM CDT SW attempted to meet with pt, however pt was having an EKG completed. RISHI Stevenson Statistical Programmer Analyst Case Management * Plan of Care - Carmencita Parnell RN - 06/06/2024 9:30 AM CDT [facility] is unable to accept patient due to IV frequency. [facility] is able to accept and has a bed available today for admission. Spoke with patients sAnibal [phone]. Insurance authorization submitted. BABAK Bowman-RN, * Medical [...] to intellectual disability. She initially presented to [facility] on 05/21 with n/v/dand abdominal pain. [...] sodium chloride 0.9%, 5-10 mL, intra-catheter, Q12H [facility] Continuous Infusions: PRN Meds:. ??? dextrose, 15 [...] sleep apnea) Diabetes mellitus with hyperglycemia (CMS/HCC) ([facility]) Endocarditis -Continue ancef until 06/22 per ID [...] Code status: Full Code Voice recognition software MMAdventureDrop Fluency Direct was used dictate and transcribe this document. J2Ee Java Developer variances may occur. Despite proofreading, typographical errors may occur. IAN Little-IV Cosigned by Coleen Samuels MD at 06/06/2024 [...] comfort, safety, accuchecks, abx, and pain mangement Manager Of Distribution Patient Centered Goal for Treatment: Better health, [...] comfort, safety, accuchecks, abx, and pain mangement Senior Care Patient Centered Goal for Treatment: Better health, DC home Summary:Patient was comfortable upon rounds, no complains of pain, needs assistance ambulating and going to the bathroom, she was scheduled with vascular for PICC line insertion but with unsuccessfulattempts, patient was instead sent to IR for PICC line insertion. * Plan of Care - Carmencita Parnell RN - 06/05/2024 3:04 PM CDT Called to follow up with patients sisterDilia [phone]. Dilia would like referrals sent to [facility] [place]. Referrals sent via [facility]. MIKEY BowmanRN, * Perioperative Nursing Note - Pauly Wilburn RN - 06/05/2024 2:02 PM CDT Patient arrived to IR from the inpatient floor for a PICC line placement. Alert and oriented, answering orientation questions appropriately. NAD * Plan of Care - Carmencita Parnell RN - 06/05/2024 12:08 PM CDT Spoke with patient , Dilia Moise [phone], regarding discharge planning. Patient now needs IV abx until 06/22. Discussed home with home infusion vs SNF with . Choice list emailed to [email or web address]. Dilia will review the choice list and provide choices for SNF. LOVELY Bowman, * Plan of Care - Ivette Harrington MSW - 06/05/2024 9:18 AM CDT SW consult received for SNF placement. SW informed pt's CM who is working on pt's d/c plan. SW following for SDOH needs. RISHI Stevenson Statistical Programmer Analyst Case Management * Plan of Care - [...] comfort, safety, accuchecks, abx, and pain mangement Senior Care Patient Centered Goal for Treatment: Better health, [place] home Summary: Patient has been up and [...] Information Obtained From: Other (Specify) Name: Dilia Gutiérrez [phone] Marital Status: Does Pt have Legal Guardian, Surrogate Decision Maker or Healthcare Agent? : No Payor Source: Medicare, Medicaid Race: White/ Ethnicity: Non- Gender Identity: Female (06/04/24 115) Current Situation: Current Situation Living Arrangements: Alone Type of Residence: Private residence Current Transportation: Family/friends (06/04/24 124) Support Systems and Spirituality: Support Systems and Spirituality Support System: Other family members Other Family Member Name/Contact Information: Peg Rice (Sister) [phone] Participation from Patient's Support System: Assist patient in her home, assist with finances Are there any Sabianism Practices that are important to maintain while [...] More than three times a week Attends Sabianism Services: Never Active Member of Clubs or [...] No Refillable Tank No Impressions and Recommendations: MIRIAM met with pt at bedside. Pt called [...] care for pt at her own home. SW provided Dormir info. MIRIAM will continue to follow for any needed suppo rt. RISHI Stevenson Statistical Programmer Analyst Case Management * Plan of Care - Carmencita Parnell RN - 06/04/2024 12:34 PM CDT Called and discuss discharge plans with patients Dilia gutiérrez [phone]. Dilia states she is not comfortable with administering IV abx at home. She states that she spoke with the MD and was informed that the abx are until 06/08, and then patient will discharge home. PICC line has not been placed. Will continue to follow and assist with discharge planning. BABAK Bowman-RN, * Plan of Care - Veena Austin RN - 06/03/2024 3:23 PM CDT Goals: Clinical Goals for the Shift: vitals, I/O's, comfort, safety, accuchecks, abx, and pain mangement Manager Of Distribution Patient Centered Goal for Treatment: Better health, [...] Outcome: Progressing * Plan of Care - Veena Austin RN - 06/02/2024 2:55 PM CDT Goals: Clinical Goals for the Shift: vitals, I/O's, comfort, safety, accuchecks, abx, and pain mangement Senior Care Patient Centered Goal for Treatment: Better health, [...] Outcome: Progressing * Plan of Care - Nancy Reyes RN - 06/02/2024 9:32 AM CDT Tuesday CM reached out Faith at [facility] LVM. Per pt RN pt has not had PICC inserted. Order are in and plan to get PICC today, RN will notify when procedure completed CM placed call to [facility] [phone] Spoke with Irma, she states she spoke with pt sister Dilia and she states she is not comfortable doing antibiotics at home. Irma states they cannot do a video teach. If sister declines she suggest possibly SNF for pt. Nancy Reyes PIPE COVERER HELPER Operations Research Manager [phone] * Plan of Care - Carmencita Cano [...] in the patients chart. Referral sent to [facility], however, they are out of network. Referral sent to [facility].Patient still needs a PICC line and teaching to be completed with her sister, Dilia. ANGELI BowmanN-RN, * Plan of Care - Pallavi Edmonds RN - 06/01/2024 2:30 PM CDT This patient has [place] [employer] insurance which is OUT OF NETWORK for [facility]. I spoke with Faith from [employer] & gave her patient info. She will run benefits & reach out to Carmencita Parnell CM directly. Pallavi Edmonds, care transport nurseLight Rail Signal Technician [address] [place] [address] [email or web address] * Initial Assessments - Carmencita Parnell [...] her sister. Called patients sister, Dilia Moise [phone]. Patient lives at home alone. She is independent with her ADLs and uses a 3 wheeled walker, shower chair, CPAP (unknown provider), and a life alert at home. Dilia checks on her and does thehouse hold chores. She receives SSI and is able to afford her medications at [facility] in [place], [place]. Dilia provides transportation. SDOH completed- Dilia states patient needs assistance with [...] the patient need discharge transport arranged?: No (06/01/24 1349) Health Insurance Coverage: [place] Prescription Coverage: [place] Pharmacy: [id number] - [place], [place] - [address] [facility] [address] [facility] [id number] Primary Care Provider: Oswaldo Serrano MD Prior [...] steps outside: 1 steps Medication management: Independent (06/01/24 1349) SDOH: Transportation: In the past 12 months, has lack of transportation kept you from medical appointments or from getting medications?: No In the past 12 months, has lack of transportation kept you from meetings, work, or from getting things needed for daily living?: No (06/01/24 1350) Financial Resource: How hard is it for you to pay for the very basics like food, housing, medical care, and heating?: Hard (06/01/24 1350) Housing: In the last 12 months, was there a time when you were not able to pay the mortgage or rent on time?: No In the past 12 months, how many times have you moved where you were living?: 0 At any time in the past 12 months, were you homeless or living in a correction (including now)?: No (06/01/24 1350) Utilities: No, (06/01/24 1350) Social Connections: In a typical week, how many times do you talk on the phone with family, friends, or neighbors?: More than three times a week How often do you get together with friends or relatives?: More than three times a week How often do you attend evangelical or jewish services?: Never Do you belong to any clubs or organizations such as evangelical groups, unions, fraternal or athletic groups, or school groups?: No How often do you attend meetings of the clubs or organizations you belong to?: Never Are you , , , , never , or living with a partner?: (06/01/24 1350) Food Insecurity: Within the past 12 months, you worried that your food would run out before you got the money to buymore.: Never true Within the past 12 months, the food you bought just didn't last and you didn't have money to get more.: Never true (06/01/24 1350) Alcohol Use: Q1: How often do you have a drink containing alcohol?: Never Q2: How many drinks containing alcohol do you have on a typical day when you are drinking?: Patientdoes not drink Q3: How often do you have six or more drinks on one occasion?: Never (06/01/24 1350) Potential discharge needs include: Home infusion OP [...] Collaboration with Patient, Provider, Direct Care Nurse, Statistical Programmer Analyst, and other members of theHealth Care Team to assure needed interventions completed. 2. Return patient to optimal level of self-care post discharge. 3. Operations Research Manager will follow for Discharge Planning - interventions as needed 4. Anticipated level of care at discharge 5. Planned Discharge Disposition BABAK Bowman-RN, * Plan of Care - Carla Gamez [...] comfort, safety, accuchecks, abx, and pain mangement Manager Of Distribution Patient Centered Goal for Treatment: Better [facility] * Provider Query - Elly Julian [...] the Shift: stable vitals,safety and comfort,pain management Senior Care Patient Centered Goal for Treatment: Better health, [...] - Primary Anesthesiologist: Sourav Mccall MD Anesthesiologist Lawn And Garden Technician: Amrik Navas AA Endoscopy Nurse: Tawana Hernandez RN DATE OF SURGERY : 05/31/2024 Preoperative Diagnosis: Pre-op Diagnosis * Acute bacterial endocarditis [I33.0] Atrial fibrillation Cardiomyopathy, dilated Congestive heart failure [place] Heart Association class 3 symptoms. Presence of BIOTRONIK dual-chamber defibrillator Postoperative Diagnosis: NO OBVIOUS VALVULAR VEGETATIONS Atrial fibrillation Cardiomyopathy, dilated Congestive heart failure [place] Heart Association class 3 symptoms. Presence of [...] Ty Mcfarland MD - Primary Anesthesiologist: Sourav Mcacll MD Anesthesiologist Lawn And Garden Technician: Amrik Navas AA Endoscopy Nurse: Tawana Hernandez RN DATE OF SURGERY : 05/31/2024 Preoperative Diagnosis: Pre-op Diagnosis * Acute bacterial endocarditis [I33.0] Atrial fibrillation Cardiomyopathy, dilated Congestive heart failure [place] Heart Association class 3 symptoms. Presence of BIOTRONIK dual-chamber defibrillator Postoperative Diagnosis: NO OBVIOUS VALVULAR VEGETATIONS Atrial fibrillation Cardiomyopathy, dilated Congestive heart failure [place] Heart Association class 3 symptoms. Presence of [...] Goals for the Shift: VSS, Safety, Comfort Manager Of Distribution Patient Centered Goal for Treatment: Better health, MA home Summary: * Significant Event - Mike [...] 2:54 AM CDT DIFFERENTIAL AUTO Routine 06/02/2024 2:5 4 AM CDT CBC WITH AUTO DIFFERENTIAL Routine [...] * POCT glucose (06/08/2024 5:02 PM CDT) Glucose, POC 169 70 - 199 mg/dL Blood 06/08/2024 5:02 PM CDT 06/08/2024 5:02 PM CDT us Coleen Samuels MD LAB POCT ORDERABLES - DEV ICE Final Result Performing Organization Address [facility] Co de Phone Number OLAMIDE JOCELINE [id number] [address] [facility] [employer] [place], [place] [id number] * (ABNORMAL) POCT glucose (06/08/2024 12:08 PM CDT) Glucose, POC 267(H) 70 - 199 mg/dL Blood 06/08/2024 12:0 8 PM CDT 06/08/2024 12:08 PM CDT us Coleen Samuels MD LAB POCT ORDERABLES - DEV ICE Final Result Performing Organization Address [facility]/ZIP Co de Phone Number OLAMIDE JOCELINE [address] [address] Department of [employer] [place] [address] * POCT glucose (06/08/2024 6:45 AM CDT) Glucose, POC 187 70 - 199 mg/dL Blood 06/08/2024 6:45 AM CDT 06/08/2024 6:45 AM CDT us Coleen Samuels MD LAB POCT ORDERABLES - DEV ICE Final Result OLAMIDE [address] [address] [facility] [place] [address] * eGFR (06/08/2024 4:30 AM CDT) eGFR >90 >=60 mL/min/1. 73 [...] LAB BLOOD ORDERABLES F inal Result OLAMIDE [address] [address] Department [place] [address] * Differential, auto (06/08/2024 4:30 AM CDT) Neutrophil abs 3.3 1.5 - 6.5 K/cumm Imm gran abs 0.1 0.0 - 0.1 K/cumm [facility] Lymphocyte abs 1.2 0.8 - 3.3 K/cumm [facility] Monocyte abs 0.7 0.2 - 0.8 K/cumm [facility] Eosinophil abs 0.2 0.0 - 0.5 K/cumm [facility] Basophil abs 0.1 0.0 - 0.1 K/cumm [facility] Neutrophil pct 59.9 % [facility] Comment: Interpretive Data Percent cell count reference ranges are not reported, since discordance with absolute values may lead to misinterpretation of CBC data. Current Interpretive Data was last revised on 2018. Imm gran pct 1.1 % [facility] Comment: Interpretive Data Percent cell count reference ranges are not reported, since discordance with absolute values may lead to misinterpretation of CBC data. Current Interpretive Data was last revised on 2018. Lymphocyte pct 21.6 % [facility] Comment: Interpretive Data Percent cell count reference ranges are not reported, since discordance with absolute values may lead to misinterpretation of CBC data. Current Interpretive Data was last revised on 2018. Monocyte pct 13.2 % [facility] Comment: Interpretive Data Percent cell count reference ranges are not reported, since discordance with absolute values may lead to misinterpretation of CBC data. Current Interpretive Data was last revised on 2018. Eosinophil pct 2.7 % [facility] Comment: Interpretive Data Percent cell count reference ranges are not reported, since discordance with absolute values may lead to misinterpretation of CBC data. Current Interpretive Data was last revised on 2018. Basophil pct 1.5 % [facility] Comment: Interpretive Data Percent cell count reference ranges are not reported, since discordance with absolute values may lead to misinterpretation of CBC data. Current Interpretive Data was last revised on 2018. Blood 06/08/2024 4:30 AM CDT 06/08/2024 5:17 AM CDT Mike Hollis MD LAB BLOOD ORDERABLES F inal Result Performing Organization Address [facility] Co de Phone Number OLAMIDE [phone] [address] Department of [employer] [place] [address] * Phosphorus (06/08/2024 4:30 AM CDT) Pathologist [facility] Phosphorus, pl 3.4 2.3 - 4.5 mg/dL Blood 06/08/2024 4:30 AM CDT 06/08/2024 5:17 AM CDT Elly Julian MD LAB BLOOD ORDERABLE S Final Result Performing Organization Address [facility] de Phone Number OLAMIDE [phone] [address] Department [employer] [place] [address] * Magnesium (06/08/2024 4:30 AM CDT) Pathologist [facility] Magnesium 2.0 1.4 - 2.5 mg/dL Blood 06/08/2024 4:30 AM CDT 06/08/2024 5:17 AM CDT Mike Hollis MD LAB BLOOD ORDERABLES F inal Result Performing Organization Address [facility] de Phone Number OLAMIDE [phone] [address] Department of [employer] [place] [address] * (ABNORMAL) Comprehensive metabolic panel (06/08/2024 4:30 AM CDT) Sodium 136 135 - 145 mmol/L Potassium, pl 3.7 3.3 - 4.9 mmol/L [facility] Chloride 97 97 - 110 mmol/L CERNER [...] MD LAB BLOOD ORDERABLES F inal Result [facility] [id number] [address] Department [place] [address] * (ABNORMAL) CBC with auto differential (06/08/2024 4:30 AM CDT) Pathologist [facility] WBC 5.5 3.8 - 9.9 K/cumm Hgb 11.9 11.9 - 15.5 g/dL [facility] Hct 37.0 35.6 - 45.5 % [facility] Plt 295 150 - 400 K/cumm [facility] MPV 9.4 9.1 - 12.3 fL [facility] RBC 3.70(L) 3.90 - 5.20 M/cumm [facility] MCV 100.0(H) 81.3 - 96.4 fL [facility] MCH 32.2 27.1 - 33.3 pg [facility] MCHC 32.2(L) 32.3 - 35.7 g/dL [facility] CH RDW CV 12.8 11.1 - 14.9 % [facility] RDW SD 47.1 35.7 - 48.1 fL [facility] NRBC abs 0.00 0.00 - 0.01 K/cumm [facility] Blood 06/08/2024 4:30 AM CDT 06/08/2024 5:17 AM CDT Mike Hollis MD LAB BLOOD ORDERABLES F inal Result Performing Organization Address [facility] Co de Phone Number ZAKIYAIZZY [address] [facility] [employer] [place] [address] * POCT glucose (06/07/2024 10:02 PM CDT) Glucose, POC 130 70 - 199 mg/dL Blood 06/07/2024 10:0 2 PM CDT 06/07/2024 10:02 PM CDT Coleen Samuels MD LAB POCT ORDERABLES - DEV ICE Final Result Performing Organization Address [facility] de Phone Number [facility] [address] [address] Department [employer] [place] [address] * POCT glucose (06/07/2024 4:56 PM CDT) Glucose, POC 137 70 - 199 mg/dL Blood 06/07/2024 4:56 PM CDT 06/07/2024 4:56 PM CDT Coleen Samuels MD LAB POCT ORDERABLES - DEV ICE Final Result Performing Organization Address [facility] Co de Phone Number OLAMIDE CAR [address] [facility] [employer] [place] [address] * (ABNORMAL) POCT glucose (06/07/2024 11:56 AM CDT) Pathologist [facility] Glucose, POC 279(H) 70 - 199 mg/dL Blood 06/07/2024 11:5 6 AM CDT 06/07/2024 11:56 AM CDT us Coleen Samuels MD LAB POCT ORDERABLES - DEV ICE Final Result Performing Organization Address [facility] Co de Phone Number OLAMIDE CAR [address] [place] [address] * POCT glucose (06/07/2024 6:13 AM CDT) Pathologist [facility] Glucose, POC 144 70 - 199 mg/dL Blood 06/07/2024 6:13 AM CDT 06/07/2024 6:13 AM CDT us Coleen Samuels MD LAB POCT ORDERABLES - DEV ICE Final Result Performing Organization Address [facility] de Phone Number OLAMIDE CAR [address] [address] [place], [place] [id number] * eGFR (06/07/2024 4:00 AM CDT) Pathologist [facility] eGFR >90 >=60 mL/min/1. 73 m2 Comment: [...] MD LAB BLOOD ORDERABLES F inal Result [facility] [id number] [address] Department [place] [address] * Differential, auto (06/07/2024 4:00 [...] 0.1 K/cumm [facility] Neutrophil pct 67.3 % [facility] Comment: Interpretive Data Percent cell count reference ranges are not reported, since discordance with absolute values may lead to misinterpretation of CBC data. Current Interpretive Data was last revised on 2018. Imm gran pct 0.8 % [facility] Comment: Interpretive Data Percent cell count reference ranges are not reported, since discordance with absolute values may lead to misinterpretation of CBC data. Current Interpretive Data was last revised on 2018. Lymphocyte pct 17.3 % [facility] Comment: Interpretive Data Percent cell count reference ranges are not reported, since discordance with absolute values may lead to misinterpretation of CBC data. Current Interpretive Data was last revised on 2018. Monocyte pct 10.6 % [facility] Comment: Interpretive Data Percent cell count reference ranges are not reported, since discordance with absolute values may lead to misinterpretation of CBC data. Current Interpretive Data was last revised on 2018. Eosinophil pct 2.5 % [facility] Comment: Interpretive Data Percent cell count reference ranges are not reported, since discordance with absolute values may lead to misinterpretation of CBC data. Current Interpretive Data was last revised on 2018. Basophil pct 1.5 % [facility] Comment: Interpretive Data Percent cell count reference ranges are not reported, since discordance with absolute values may lead to misinterpretation of CBC data. Current Interpretive Data was last revised on 2018. Blood 06/07/2024 4:00 AM CDT 06/07/2024 4:26 AM CDT iMke Hollis MD LAB BLOOD ORDERABLES F inal Result Performing Organization Address [facility] Co de Phone Number OLAMIDE [phone] [address] Department [employer] [place], [place] [id number] * Phosphorus (06/07/2024 4:00 AM CDT) Phosphorus, pl 2.9 2.3 - 4.5 mg/dL Blood 06/07/2024 4:00 AM CDT 06/07/2024 4:26 AM CDT Elly Julian MD LAB BLOOD ORDERABLE S Final Result Performing Organization Address [facility] Co de Phone Number [facility] [address] [address] Department of [employer] [place] [address] * Magnesium (06/07/2024 4:00 AM CDT) Magnesium 1.9 1.4 - 2.5 mg/dL Blood 06/07/2024 4:00 AM CDT 06/07/2024 4:26 AM CDT us Mike Hollis MD LAB BLOOD [place] [id number] [address] Department [place] [address] * (ABNORMAL) Comprehensive metabolic panel (06/07/2024 4:00 AM CDT) Sodium 131(L) 135 - 145 mmol/L Potassium, pl 4.2 3.3 - 4.9 mmol/L [facility] Chloride 97 97 - 110 mmol/L [facility] CO2 25 22 - 32 mmol/L [facility] Anion gap 9 2 - 15 mmol/L [facility] BUN 17 6 - 25 mg/dL [facility] Creatinine 0.66 0.60 - 1.10 mg/dL [facility] Glucose 133 70 - 199 mg/dL [facility] Comment: [...] ORDERABLES F inal Result Performing Organization Address City/[facility] Co de Phone Number OLAMIDE CAR [address] [address] Department of [employer] [place] [address] * (ABNORMAL) CBC with auto differential (06/07/2024 4:00 AM CDT) WBC 6.1 3.8 - 9.9 K/cumm Hgb 11.8(L) 11.9 - 15.5 g/dL [facility] Hct 36.7 35.6 - 45.5 % [facility] Plt 299 150 - 400 K/cumm [facility] MPV 9.2 9.1 - 12.3 fL [facility] RBC 3.66(L) 3.90 - 5.20 M/cumm [facility] CH MCV 100.3(H) 81.3 - 96.4 fL [facility] CH MCH 32.2 27.1 - 33.3 pg [facility] MCHC 32.2(L) 32.3 - 35.7 g/dL [facility] RDW CV 13.0 11.1 - 14.9 % [facility] RDW SD 48.0 35.7 - 48.1 fL [facility] NRBC abs 0.00 0.00 - 0.01 K/cumm [facility] CH Blood 06/07/2024 4:00 AM CDT 06/07/2024 4:26 AM CDT Mike Hollis MD LAB BLOOD ORDERABLES F inal Result Performing Organization Address City/[facility]/ZIP Co de Phone Number OLAMIDE CAR [address] [address] Department of [employer] [place], [place] [id number] * CTA Upper Extremity Right W WO Contrast (06/06/2024 11:04 PM CDT) Anatomical Region Laterality Modality Upper Extremities Right Computed Tomog bertha 06/06/2024 10:4 0 PM CDT Impressions 06/07/2024 8:47 AM CDT 1. ?? Patent arterial system of the right upper extremity as detailed above. 2. ?? No evidence of hematoma or drainable fluid collection Stat report by [facility] ?? Electronically signed by: Andrea Abernathy M.D. [...] or drainable fluid collection Stat report by [facility] Electronically signed by: Andrea Abernathy M.D. us Edilberto Corral DO IMG CT PROCEDURES Fin al Result * POCT glucose (06/06/2024 9:16 PM CDT) Glucose, POC 123 70 - 199 mg/dL Blood 06/06/2024 9:16 PM CDT 06/06/2024 9:16 PM CDT us Coleen Samuels MD LAB POCT ORDERABLES - DEV ICE Final Result Performing Organization Address [facility] Co de Phone Number OLAMIDE CAR [address] [address] [place] [address] * POCT glucose (06/06/2024 6:51 PM CDT) Glucose, POC 147 70 - 199 mg/dL Blood 06/06/2024 6:51 PM CDT 06/06/2024 6:51 PM CDT Coleen Samuels MD LAB POCT ORDERABLES - DEV ICE Final Result Performing Organization Address [facility] Co de Phone Number OLAMIDE CAR [address] [address] Department [employer] [address] * POCT glucose (06/06/2024 4:42 PM CDT) Glucose, POC 127 70 - 199 mg/dL Blood 06/06/2024 4:42 PM CDT 06/06/2024 4:42 PM CDT Coleen Samuels MD LAB POCT ORDERABLES - DEV ICE Final Result Performing Organization Address [facility] Co de Phone Number OLAMIDE CAR [address] [address] Department [place] [address] * ECG 12 lead (06/06/2024 12:16 PM CDT) 06/06/2024 12:1 6 PM CDT Narrative [facility] - 06/06/2024 1:10 PM CDT Vent Rate: 78 bpm RR Interval: 763 msec FL Interval: 0 msec QRS Duration: 154 msec QT Interval: 473 msec QTC Interval: 506 msec P-R-T Bentley: 0 - 23 - 94 degrees IMPRESSION: ATRIAL FIBRILLATION Occasional ventricular pacing INDETERMINATE AXIS Left bundle branch block ABNORMAL ECG Electronically Signed By: Dr. Shiloh Muhammad [facility] Sandro Hong MD ECG ORDERABLES Final Result Performing Organization Address [facility] Co de Phone Number [facility] * (ABNORMAL) POCT glucose (06/06/2024 11:53 AM CDT) Glucose, POC 271(H) 70 - 199 mg/dL Blood 06/06/2024 11:5 3 AM CDT 06/06/2024 11:53 AM CDT Coleen Samuels MD LAB POCT ORDERABLES - DEV ICE Final Result Performing Organization Address [facility] Co de Phone Number OLAMIDE CAR [phone] [employer] Department of [employer] [place] [address] * US Vein Duplex Upper Extremity Right [...] extremity. Electronically signed by: Conrad Davila M.D. us Elly Julian MD IMG US PROCEDURES F [...] failure. Electronically signed by: Conrad Davila M.D. us Elly Julian MD IMG XR PROCEDURES F inal Result * (ABNORMAL) POCT glucose (06/06/2024 7:25 AM CDT) Pathologist [facility] Glucose, POC 216(H) 70 - 199 mg/dL Blood 06/06/2024 7:25 AM CDT 06/06/2024 7:25 AM CDT us Coleen Samuels MD LAB POCT ORDERABLES - DEV ICE Final Result OLAMIDE [phone] [address] Department [place] [address] * eGFR (06/06/2024 3:59 AM CDT) eGFR >90 >=60 mL/min/1. 73 [...] MD LAB BLOOD ORDERABLES F inal Result [facility] [address] [address] Department [place] [address] * Differential, auto (06/06/2024 3:59 AM CDT) [...] 0.1 K/cumm [facility] Neutrophil pct 64.8 % [facility] Comment: Interpretive Data [...] revised on 2018. Lymphocyte pct 19.0 % [facility] Comment: Interpretive Data Percent cell count reference ranges are not reported, since discordance with absolute values may lead to misinterpretation of CBC data. Current Interpretive Data was last revised on 2018. Monocyte pct 11.9 % [facility] Comment: Interpretive Data Percent cell count reference ranges are not reported, since discordance with absolute values may lead to misinterpretation of CBC data. Current Interpretive Data was last revised on 2018. Eosinophil pct 2.0 % [facility] Comment: Interpretive Data Percent cell count reference ranges are not reported, since discordance with absolute values may lead to misinterpretation of CBC data. Current Interpretive Data was last revised on 2018. Basophil pct 1.8 % [facility] Comment: Interpretive Data Percent cell count reference ranges are not reported, since discordance with absolute values may lead to misinterpretation of CBC data. Current Interpretive Data was last revised on 2018. Blood 06/06/2024 3:59 AM CDT 06/06/2024 4:23 AM CDT Mike Hollis MD LAB BLOOD ORDERABLES F inal Result OLAMIDE [address] [address] Department of Laboratories [place], [place] [id number] * Phosphorus (06/06/2024 3:59 AM CDT) Phosphorus, pl 3.2 2.3 - 4.5 mg/dL Blood 06/06/2024 3:59 AM CDT 06/06/2024 4:23 AM CDT Elly Julian MD LAB BLOOD ORDERABLE S Final Result Performing Organization Address City/[facility]/ZIP Co de Phone Number OLAMIDE CAR [address] [place] Department of [employer] [place] [address] * Magnesium (06/06/2024 3:59 AM CDT) Magnesium 1.8 1.4 - 2.5 mg/dL Blood 06/06/2024 3:59 AM CDT 06/06/2024 4:23 AM CDT Mike Hollis MD LAB BLOOD ORDERABLES F inal Result Performing Organization Address [facility] Co de Phone Number OLAMIDE CAR [address] [place] Department of [employer] [place] [address] * (ABNORMAL) Comprehensive metabolic panel (06/06/2024 3:59 AM CDT) Pathologist [facility] Sodium 133(L) 135 - 145 mmol/L Potassium, pl 4.0 3.3 - 4.9 mmol/L [facility] Chloride 98 97 - 110 mmol/L [facility] CO2 26 22 - 32 mmol/L [facility] Anion gap 9 2 - 15 mmol/L [facility] BUN 20 6 - 25 mg/dL [facility] Creatinine 0.68 0.60 - 1.10 mg/dL [facility] Glucose 241(H) 70 - 199 mg/dL [facility] Comment: Interpretive [...] MD LAB BLOOD ORDERABLES F inal Result [facility] [address] [address] Department [place] [address] * (ABNORMAL) CBC with auto differential (06/06/2024 3:59 AM CDT) Pathologist [facility] WBC 5.6 3.8 - 9.9 K/cumm Hgb [...] RDW CV 13.1 11.1 - 14.9 % [facility] RDW SD 49.2(H) 35.7 - 48.1 fL [facility] NRBC abs 0.00 0.00 - 0.01 K/cumm [facility] Blood 06/06/2024 3:59 AM CDT 06/06/2024 4:23 AM CDT Mike Hollis MD LAB BLOOD ORDERABLES F inal Result [place] [address] [facility] [employer] [place] [address] * (ABNORMAL) POCT glucose (06/05/2024 8:31 PM CDT) Glucose, POC 205(H) 70 - 199 mg/dL Blood 06/05/2024 8:31 PM CDT 06/05/2024 8:31 PM CDT Elly Julian MD LAB POCT ORDERABLES - DEVICE Final Result Performing Organization Address [facility] Co de Phone Number OLAMIDE CAR [address] [address] [place], [place] [id number] * POCT glucose (06/05/2024 4:47 PM CDT) Glucose, POC 198 70 - 199 mg/dL Blood 06/05/2024 4:47 PM CDT 06/05/2024 4:47 PM CDT Elly Julian MD LAB POCT ORDERABLES - DEVICE Final Result Performing Organization Address [facility] de Phone Number OLAMIDE CAR [address] [facility] [employer] [place] [address] * IR PICC Line Placement Over 5 [...] ??After dilating the tract, a 45 cm, 5-Bermudian dual-lumen PICC was inserted through the peel-away [...] After dilating the tract, a 45 cm, 5-Bermudian dual-lumen PICC was inserted through the peel-away [...] guidance. Electronically signed by: Blaine Nash M.D. us Eben Pettit MD IMG IR PROCEDURES Final [...] - DEVICE Final Result Performing Organization Address [facility] Co de Phone Number OLAMIDE CAR [address] [employer] [address] * (ABNORMAL) Protime-INR (06/05/2024 7:55 AM CDT) PT 20.9(H) 9.7 - 13.0 sec INR 1.91(H) 0.90 - 1.20 [facility] Comment: Interpretive data Oral anticoagulant therapeutic ranges: Venous thromboembolism prophylaxis or treatment: 2.0-3.0 CARDIOLOGY Standard range: 2.0-3.0 High-intensity range: 2.5-3.5 Refer to indication-specific guidelines for appropriate target ranges for prosthetic heart valve replacement. Current interpretive data was last revised on 2019. Blood 06/05/2024 7:55 AM CDT 06/05/2024 8:01 AM CDT Elly Julian MD LAB BLOOD ORDERABLE S Final Result Performing Organization Address City/[facility] Co de Phone Number OLAMIDE CAR [address] [employer] [address] * POCT glucose (06/05/2024 6:28 AM CDT) Glucose, POC 175 70 - 199 mg/dL Blood 06/05/2024 6:28 AM CDT 06/05/2024 6:28 AM CDT Elly Julian MD LAB POCT ORDERABLES - DEVICE Final Result Performing Organization Address [facility] [place] [address] [facility] [employer] [place] [address] * POCT glucose (06/05/2024 2:04 AM CDT) Pathologist [facility] Glucose, POC 178 70 - 199 mg/dL Blood 06/05/2024 2:04 AM CDT 06/05/2024 2:04 AM CDT Elly Julian MD LAB POCT ORDERABLES - DEVICE Final Result Performing Organization Address [facility] Phone Number OLAMIDE [address] [facility] [employer] [place] [address] * eGFR (06/05/2024 12:31 AM CDT) Pathologist [facility] eGFR >90 >=60 mL/min/1. 73 m2 Comment: [...] MD LAB BLOOD ORDERABLES F inal Result [facility] [address] [address] Department of Laboratories [place], [place] [id number] * Differential, auto (06/05/2024 12:31 AM CDT) Neutrophil abs 4.2 1.5 - 6.5 K/cumm Imm gran abs 0.0 0.0 - 0.1 K/cumm [facility] Lymphocyte abs 1.2 0.8 - 3.3 K/cumm [facility] Monocyte abs 0.6 0.2 - 0.8 K/cumm [facility] Eosinophil abs 0.1 0.0 - 0.5 K/cumm [facility] Basophil abs 0.1 0.0 - 0.1 K/cumm [facility] Neutrophil pct 66.8 % [facility] Comment: Interpretive Data Percent cell [...] revised on 2018. Lymphocyte pct 18.6 % [facility] Comment: Interpretive Data Percent cell count reference ranges are not reported, since discordance with absolute values may lead to misinterpretation of CBC data. Current Interpretive Data was last revised on 2018. Monocyte pct 10.1 % [facility] Comment: Interpretive Data Percent cell count reference ranges are not reported, since discordance with absolute values may lead to misinterpretation of CBC data. Current Interpretive Data was last revised on 2018. Eosinophil pct 2.1 % [facility] Comment: Interpretive Data Percent cell count reference ranges are not reported, since discordance with absolute values may lead to misinterpretation of CBC data. Current Interpretive Data was last revised on 2018. Basophil pct 1.9 % [facility] Comment: Interpretive Data Percent cell count reference ranges are not reported, since discordance with absolute values may lead to misinterpretation of CBC data. Current Interpretive Data was last revised on 2018. Blood 06/05/2024 12:3 1 AM CDT 06/05/2024 1:07 AM CDT Mike Hollis MD LAB BLOOD ORDERABLES F inal Result Performing Organization Address [facility] Co de Phone Number OLAMIDE [phone] [address] [facility] [employer] [place], [place] [id number] * Phosphorus (06/05/2024 12:31 AM CDT) Phosphorus, pl 2.7 2.3 - 4.5 mg/dL Blood 06/05/2024 12:3 1 AM CDT 06/05/2024 1:07 AM CDT Elly Julian MD LAB BLOOD ORDERABLE S Final Result Performing Organization Address [facility] Co de Phone Number [facility] [address] [address] Department [employer] [place] [address] * Magnesium (06/05/2024 12:31 AM CDT) Magnesium 2.0 1.4 - 2.5 mg/dL Blood 06/05/2024 12:3 1 AM CDT 06/05/2024 1:07 AM CDT Mike Hollis MD LAB BLOOD ORDERABLES F inal Result Performing Organization Address [facility] Co de Phone Number [facility] [address] [address] Department [employer] [place] [address] * (ABNORMAL) Comprehensive metabolic panel (06/05/2024 12:31 [...] 10 - 45 Units/L [facility] Blood 06/05/2024 12:3 1 AM CDT 06/05/2024 1:07 AM CDT us Mike Hollis MD LAB BLOOD ORDERABLES F inal Result [facility] [address] [address] Department [place] [address] * (ABNORMAL) CBC with auto differential (06/05/2024 12:31 AM CDT) [facility] WBC 6.3 3.8 - 9.9 K/cumm Hgb 12.9 11.9 - 15.5 g/dL [facility] Hct 39.7 35.6 - 45.5 % [facility] Plt 371 150 - 400 K/cumm [facility] MPV 9.1 9.1 - 12.3 fL [facility] RBC 3.92 3.90 - 5.20 M/cumm [facility] MCV 101.3(H) 81.3 - 96.4 fL [facility] MCH 32.9 27.1 - 33.3 pg [facility] MCHC 32.5 32.3 - 35.7 g/dL [facility] RDW CV 13.2 11.1 - 14.9 % [facility] RDW SD 49.4(H) 35.7 - 48.1 fL [facility] NRBC abs 0.00 0.00 - 0.01 K/cumm [facility] Blood 06/05/2024 12:3 1 AM CDT 06/05/2024 1:07 AM CDT Mike Hollis MD LAB BLOOD ORDERABLES F inal Result Performing Organization Address City/[facility]/ZIP Co de Phone Number [facility] [address] [address] [employer] [place] [address] * POCT glucose (06/04/2024 8:31 PM CDT) [facility] Glucose, POC 135 70 - 199 mg/dL Blood 06/04/2024 8:31 PM CDT 06/04/2024 8:31 PM CDT Elly Julian MD LAB POCT ORDERABLES - DEVICE Final Result Performing Organization Address City/[facility]/ZIP Co de Phone Number [facility] [phone] [address] Department of [employer] [place] [address] * POCT glucose (06/04/2024 4:31 PM CDT) Glucose, POC 105 70 - 199 mg/dL Blood 06/04/2024 4:31 PM CDT 06/04/2024 4:31 PM CDT Elly Julian MD LAB POCT ORDERABLES - DEVICE Final Result Performing Organization Address [facility] de Phone Number [facility] [address] [facility] [employer] [place] [address] * (ABNORMAL) POCT glucose (06/04/2024 11:11 AM CDT) Glucose, POC 274(H) 70 - 199 mg/dL Blood 06/04/2024 11:1 1 AM CDT 06/04/2024 11:11 AM CDT Elly Julian MD LAB POCT ORDERABLES - DEVICE Final Result Performing Organization Address [facility] de Phone Number [facility] [address] [facility] [employer] [place] [address] * POCT glucose (06/04/2024 6:25 AM CDT) Glucose, POC 118 70 - 199 mg/dL Blood 06/04/2024 6:25 AM CDT 06/04/2024 6:25 AM CDT Elly Julian MD LAB POCT ORDERABLES - DEVICE Final Result Performing Organization Address [facility] [facility] Phone Number OLAMIDE [phone] [facility] [employer] [place] [address] * eGFR (06/04/2024 4:53 AM CDT) eGFR >90 >=60 mL/min/1. 73 [...] MD LAB BLOOD ORDERABLES F inal Result [facility] [id number] [address] Department [place] [address] * Differential, auto (06/04/2024 4:53 AM CDT) Neutrophil abs 4.0 1.5 - 6.5 K/cumm Imm gran abs 0.1 0.0 - 0.1 K/cumm [facility] Lymphocyte abs 1.3 0.8 - 3.3 K/cumm [facility] Monocyte abs 0.6 0.2 - 0.8 K/cumm [facility] Eosinophil abs 0.1 0.0 - 0.5 K/cumm [facility] Basophil abs 0.1 0.0 - 0.1 K/cumm [facility] Neutrophil pct 64.4 % [facility] Comment: Interpretive Data Percent cell count reference ranges are not reported, since discordance with absolute values may lead to misinterpretation of CBC data. Current Interpretive Data was last revised on 2018. Imm gran pct 0.8 % [facility] Comment: Interpretive Data Percent cell count reference ranges are not reported, since discordance with absolute values may lead to misinterpretation of CBC data. Current Interpretive Data was last revised on 2018. Lymphocyte pct 21.7 % [facility] Comment: Interpretive Data Percent cell count reference ranges are not reported, since discordance with absolute values may lead to misinterpretation of CBC data. Current Interpretive Data was last revised on 2018. Monocyte pct 9.5 % [facility] Comment: Interpretive Data Percent cell count reference ranges are not reported, since discordance with absolute values may lead to misinterpretation of CBC data. Current Interpretive Data was last revised on 2018. Eosinophil pct 2.1 % [facility] Comment: Interpretive Data Percent cell count reference ranges are not reported, since discordance with absolute values may lead to misinterpretation of CBC data. Current Interpretive Data was last revised on 2018. Basophil pct 1.5 % [facility] Comment: Interpretive Data Percent cell count reference ranges are not reported, since discordance with absolute values may lead to misinterpretation of CBC data. Current Interpretive Data was last revised on 2018. Blood 06/04/2024 4:53 AM CDT 06/04/2024 5:22 AM CDT Mike Hollis MD LAB BLOOD ORDERABLES F inal Result OLAMIDE [address] [address] Department [place] [address] * Phosphorus (06/04/2024 4:53 AM CDT) Phosphorus, pl 3.0 2.3 - 4.5 mg/dL Blood 06/04/2024 4:53 AM CDT 06/04/2024 5:22 AM CDT Elly Julian MD LAB BLOOD ORDERABLE S Final Result Performing Organization Address City/[facility]/ZIP Co de Phone Number [facility] [phone] [address] Department of [employer] [place] [address] * Magnesium (06/04/2024 4:53 AM CDT) Pathologist [facility] Magnesium 2.1 1.4 - 2.5 mg/dL Blood 06/04/2024 4:53 AM CDT 06/04/2024 5:22 AM CDT Mike Hollis MD LAB BLOOD ORDERABLES F inal Result Performing Organization Address [facility] de Phone Number [facility] [phone] [address] Department of [employer] [place] [address] * (ABNORMAL) Comprehensive metabolic panel (06/04/2024 4:53 AM CDT) Pathologist [facility] Sodium 131(L) 135 - 145 mmol/L Potassium, pl 4.2 3.3 - 4.9 mmol/L [facility] Chloride 95(L) 97 - 110 mmol/L [facility] CO2 28 22 - 32 mmol/L [facility] Anion gap 8 2 - 15 mmol/L [facility] BUN 18 6 - 25 mg/dL [facility] Creatinine 0.72 0.60 - 1.10 mg/dL [facility] Glucose 104 70 - 199 mg/dL [facility] Comment: Interpretive [...] MD LAB BLOOD ORDERABLES F inal Result [facility] [address] [address] Department [place] [address] * (ABNORMAL) CBC with auto [...] RDW CV 13.4 11.1 - 14.9 % [facility] RDW SD 49.9(H) 35.7 - 48.1 fL [facility] NRBC abs 0.00 0.00 - 0.01 K/cumm [facility] Blood 06/04/2024 4:53 AM CDT 06/04/2024 5:22 AM CDT Mike Hollis MD LAB BLOOD ORDERABLES F inal Result OL[place] CAR [address] [facility] [employer] [place] [address] * POCT glucose (06/03/2024 8:08 PM CDT) Glucose, POC 141 70 - 199 mg/dL Blood 06/03/2024 8:08 PM CDT 06/03/2024 8:08 PM CDT Elly Julian MD LAB POCT ORDERABLES - DEVICE Final Result Performing Organization Address City/[facility] Co de Phone Number OLAMIDE CAR [address] [facility] [employer] [place] [address] * POCT glucose (06/03/2024 4:26 PM CDT) Glucose, POC 94 70 - 199 mg/dL Blood 06/03/2024 4:26 PM CDT 06/03/2024 4:26 PM CDT Elly Julian MD LAB POCT ORDERABLES - DEVICE Final Result Performing Organization Address [facility] Co de Phone Number OLAMIDE CAR [address] [place] [address] * POCT glucose (06/03/2024 11:26 AM CDT) Glucose, POC 139 70 - 199 mg/dL Blood 06/03/2024 11:2 6 AM CDT 06/03/2024 11:26 AM CDT Elly Julian MD LAB POCT ORDERABLES - DEVICE Final Result Performing Organization Address City/[facility]/ZIP Co de Phone Number OLAMIDE CAR [address] [place] [address] * POCT glucose (06/03/2024 6:48 AM CDT) Glucose, POC 113 70 - 199 mg/dL Blood 06/03/2024 6:48 AM CDT 06/03/2024 6:48 AM CDT us Elly Julian MD LAB POCT ORDERABLES - DEVICE Final Result Performing Organization Address [facility] de Phone Number OLAMIDE [phone] Department [place] [address] * eGFR (06/03/2024 3:05 AM CDT) eGFR [...] ORDERABLES F inal Result Performing Organization Address City/[facility] Co de Phone Number OLAMIDE [phone] [address] Department [place] [address] * (ABNORMAL) Differential, auto (06/03/2024 3:05 AM CDT) Neutrophil abs 3.4 1.5 - 6.5 K/cumm Imm gran abs 0.0 0.0 - 0.1 K/cumm [facility] Lymphocyte abs 1.5 0.8 - 3.3 K/cumm [facility] Monocyte abs 0.9(H) 0.2 - 0.8 K/cumm [facility] Eosinophil abs 0.2 0.0 - 0.5 K/cumm [facility] Basophil abs 0.1 0.0 - 0.1 K/cumm [facility] Neutrophil pct 56.9 % [facility] Comment: Interpretive Data [...] revised on 2018. Lymphocyte pct 24.5 % [facility] Comment: Interpretive Data Percent cell count reference ranges are not reported, since discordance with absolute values may lead to misinterpretation of CBC data. Current Interpretive Data was last revised on 2018. Monocyte pct 14.3 % [facility] Comment: Interpretive Data [...] revised on 2018. Basophil pct 1.3 % [facility] Comment: Interpretive Data Percent cell count reference ranges are not reported, since discordance with absolute values may lead to misinterpretation of CBC data. Current Interpretive Data was last revised on 2018. Blood 06/03/2024 3:05 AM CDT 06/03/2024 4:21 AM CDT Mike Hollis MD LAB BLOOD ORDERABLES F inal Result Performing Organization Address [facility] Co de Phone Number OLAMIDE CAR [phone] [facility] [employer] [place] [address] * Phosphorus (06/03/2024 3:05 AM CDT) Phosphorus, pl 3.3 2.3 - 4.5 mg/dL Blood 06/03/2024 3:05 AM CDT 06/03/2024 4:20 AM CDT Elly Julian MD LAB BLOOD ORDERABLE S Final Result Performing Organization Address [facility] de Phone Number OLAMIDE CAR [address] [address] Department [employer] [place] [address] * Magnesium (06/03/2024 3:05 AM CDT) Pathologist [facility] Magnesium 2.0 1.4 - 2.5 mg/dL Blood 06/03/2024 3:05 AM CDT 06/03/2024 4:20 AM CDT Mike Hollis MD LAB BLOOD ORDERABLES F inal Result Performing Organization Address [facility] de Phone Number OLAMIDE CAR [address] [address] Department [employer] [place] [address] * (ABNORMAL) Comprehensive metabolic panel (06/03/2024 3:05 [...] MD LAB BLOOD ORDERABLES F inal Result [facility] [address] [address] Department [place] [address] * (ABNORMAL) CBC with auto differential (06/03/2024 3:05 AM CDT) WBC 6.0 3.8 - 9.9 K/cumm Hgb 11.8(L) 11.9 - 15.5 g/dL [facility] Hct 37.6 35.6 - 45.5 % [facility] Plt 374 150 - 400 K/cumm [facility] MPV 9.3 9.1 - 12.3 fL [facility] RBC 3.67(L) 3.90 - 5.20 M/cumm [facility] MCV 102.5(H) 81.3 - 96.4 fL [facility] MCH 32.2 27.1 - 33.3 pg [facility] MCHC 31.4(L) 32.3 - 35.7 g/dL [facility] RDW CV 13.8 11.1 - 14.9 % [facility] RDW SD 51.8(H) 35.7 - 48.1 fL [facility] NRBC abs 0.00 0.00 - 0.01 K/cumm [facility] Blood 06/03/2024 3:05 AM CDT 06/03/2024 4:21 AM CDT Mike Hollis MD LAB BLOOD ORDERABLES F inal Result Performing Organization Address [facility] Co de Phone Number ZAKIYAIZZY [address] [facility] [employer] [place] [address] * POCT glucose (06/02/2024 8:54 PM CDT) Glucose, POC 144 70 - 199 mg/dL Blood 06/02/2024 8:54 PM CDT 06/02/2024 8:54 PM CDT Elly Julian MD LAB POCT ORDERABLES - DEVICE Final Result Performing Organization Address [facility] de Phone Number [facility] [phone] [facility] [employer] [place] [address] * POCT glucose (06/02/2024 4:13 PM CDT) Glucose, POC 147 70 - 199 mg/dL Blood 06/02/2024 4:13 PM CDT 06/02/2024 4:13 PM CDT Elly Julian MD LAB POCT ORDERABLES - DEVICE Final Result Performing Organization Address [facility] Co de Phone Number [facility] [phone] [address] Department [employer] [place], [place] [id number] * POCT glucose (06/02/2024 11:28 AM CDT) Glucose, POC 151 70 - 199 mg/dL Blood 06/02/2024 11:2 8 AM CDT 06/02/2024 11:28 AM CDT Elly Julian MD LAB POCT ORDERABLES - DEVICE Final Result Performing Organization Address [facility] Phone Number [facility] [address] [address] Department [place] [address] * ECG 12 lead (06/02/2024 11:12 AM CDT) 06/02/2024 11:1 2 AM CDT Narrative [facility] - 06/02/2024 12:30 PM CDT Vent Rate: 86 bpm RR Interval: 697 msec FL Interval: 0 msec QRS Duration: 157 msec QT Interval: 470 msec QTC Interval: 513 msec P-R-T Bentley: 0 - 38 - 88 degrees IMPRESSION: ATRIAL FIBRILLATION WITH ABERRANT CONDUCTION OR VENTRICULAR PREMATURE COMPLEXES LEFT BUNDLE BRANCH BLOCK ??[120+ ms QRS DURATION, 80+ ms Q/S IN V1/V2, 85+ ms R IN I/aVL/V5/V6] ABNORMAL ECG Compared to prior EKG, ventricular pacing is no longer present Electronically Signed By: Antonio Carlos MD Ty Mcfarland MD ECG ORDERABLES Final Resul t Performing Organization Address [facility] de Phone Number [facility] [employer] [facility] * POCT glucose (06/02/2024 6:38 AM CDT) Glucose, POC 155 70 - 199 mg/dL Blood 06/02/2024 6:38 AM CDT 06/02/2024 6:38 AM CDT Elly Julian MD LAB POCT ORDERABLES - DEVICE Final Result Performing Organization Address [facility]/ZIP Co de Phone Number OLAMIDE [phone] [address] Department [place] [address] * eGFR (06/02/2024 2:54 AM CDT) Pathologist [facility] eGFR >90 >=60 mL/min/1. 73 m2 Comment: [...] BLOOD ORDERABLES F inal Result OLAMIDE CAR [address] [address] Department [place] [address] * Differential, auto (06/02/2024 2:54 AM CDT) Pathologist [facility] Neutrophil abs 3.6 1.5 - 6.5 K/cumm Imm gran abs 0.1 0.0 - 0.1 K/cumm [facility] Lymphocyte abs 1.1 0.8 - 3.3 K/cumm [facility] Monocyte abs 0.7 0.2 - 0.8 K/cumm [facility] Eosinophil abs 0.1 0.0 - 0.5 K/cumm [facility] Basophil abs 0.1 0.0 - 0.1 K/cumm [facility] Neutrophil pct 63.0 % [facility] Comment: Interpretive Data Percent cell count reference ranges are not reported, since discordance with absolute values may lead to misinterpretation of CBC data. Current Interpretive Data was last revised on 2018. Imm gran pct 0.9 % [facility] Comment: Interpretive Data Percent cell count reference ranges are not reported, since discordance with absolute values may lead to misinterpretation of CBC data. Current Interpretive Data was last revised on 2018. Lymphocyte pct 20.0 % [facility] Comment: Interpretive Data [...] LAB BLOOD ORDERABLES F inal Result OLAMIDE [address] [address] Department of [employer] [place], [place] [id number] * Phosphorus (06/02/2024 2:54 AM CDT) Phosphorus, pl 3.5 2.3 - 4.5 mg/dL Blood 06/02/2024 2:54 AM CDT 06/02/2024 3:26 AM CDT Elly Julian MD LAB BLOOD ORDERABLE S Final Result Performing Organization Address City/[facility]/ZIP Co de Phone Number [facility] [address] [address] Department [place] [address] * Magnesium (06/02/2024 2:54 AM CDT) Pathologist [facility] Magnesium 2.0 1.4 - 2.5 mg/dL Blood 06/02/2024 2:54 AM CDT 06/02/2024 3:26 AM CDT Mike Hollis MD LAB BLOOD ORDERABLES F inal Result Performing Organization Address [facility] Co de Phone Number [facility] [address] [address] Department [place] [address] * (ABNORMAL) Comprehensive metabolic panel (06/02/2024 2:54 AM CDT) Pathologist [facility] Sodium 131(L) 135 - 145 mmol/L Potassium, pl 3.9 3.3 - 4.9 mmol/L [facility] Chloride 93(L) 97 - 110 mmol/L [facility] CO2 29 22 - 32 mmol/L [facility] Anion gap 9 2 - 15 mmol/L [facility] BUN 14 6 - 25 mg/dL [facility] Creatinine 0.69 0.60 - 1.10 mg/dL [facility] Glucose 151 70 - 199 mg/dL [facility] [...] MD LAB BLOOD ORDERABLES F inal Result [facility] [address] [address] Department [place] [address] * (ABNORMAL) CBC with auto differential (06/02/2024 2:54 AM CDT) WBC 5.6 3.8 - 9.9 K/cumm Hgb 11.5(L) 11.9 - 15.5 g/dL [facility] Hct 35.9 35.6 - 45.5 % [facility] Plt 351 150 - 400 K/cumm [facility] MPV 9.3 9.1 - 12.3 fL [facility] RBC 3.54(L) 3.90 - 5.20 M/cumm [facility] MCV 101.4(H) 81.3 - 96.4 fL [facility] MCH 32.5 27.1 - 33.3 pg [facility] MCHC 32.0(L) 32.3 - 35.7 g/dL [facility] RDW CV 13.7 11.1 - 14.9 % [facility] RDW SD 51.3(H) 35.7 - 48.1 fL [facility] NRBC abs 0.00 0.00 - 0.01 K/cumm [facility] Blood 06/02/2024 2:54 AM CDT 06/02/2024 3:26 AM CDT Mike Hollis MD LAB BLOOD ORDERABLES F inal Result Performing Organization Address [facility] de Phone Number [facility] [phone] [address] Department [place] [address] * POCT glucose (06/02/2024 2:40 AM CDT) [facility] Signature Glucose, POC 137 70 - 199 mg/dL Blood 06/02/2024 2:40 AM CDT 06/02/2024 2:40 AM CDT Elly Julian MD LAB POCT ORDERABLES - DEVICE Final Result Performing Organization Address [facility] Phone Number [facility] [phone] [address] Department [employer] [place] [address] * ECG 12 lead (06/02/2024 12:29 AM CDT) 06/02/2024 12:2 9 AM CDT Narrative [facility] - 06/02/2024 7:29 AM CDT Vent Rate: 76 bpm RR Interval: 782 msec FL Interval: 0 msec QRS Duration: 158 msec QT Interval: 494 msec QTC Interval: 525 msec P-R-T Bentley: 0 - 116 - 120 degrees IMPRESSION: ATRIAL FIBRILLATION WITH demand ventricular pacemaker MARKED RIGHT AXIS DEVIATION ??[QRS AXIS > 100] INTRAVENTRICULAR CONDUCTION DELAY ??[130+ ms QRS DURATION] ABNORMAL ECG Compared to prior EKG, demand ventricular pacing is new Electronically Signed By: Antonio Carlos MD Ty Mcfarland MD ECG ORDERABLES Final Resul t Performing Organization Address [facility] de Phone Number [facility] [employer] [facility] * (ABNORMAL) POCT glucose (06/01/2024 10:00 PM CDT) Glucose, POC 205(H) 70 - 199 mg/dL Blood 06/01/2024 10:0 0 PM CDT 06/01/2024 10:00 PM CDT Elly Julian MD LAB POCT ORDERABLES - DEVICE Final Result Performing Organization Address [facility] de Phone Number OLAMIDE CAR [address] [address] Department [employer] [place] [address] * POCT glucose (06/01/2024 4:54 PM CDT) Glucose, POC 128 70 - 199 mg/dL Blood 06/01/2024 4:54 PM CDT 06/01/2024 4:54 PM CDT Elly Julian MD LAB POCT ORDERABLES - DEVICE Final Result Performing Organization Address [facility] Phone Number OLAMIDE [phone] [facility] [employer] [place] [address] * CT Abdomen Pelvis W Contrast (06/01/2024 [...] - DEVICE Final Result Performing Organization Address [facility] de Phone Number [facility] [phone] [facility] Department [place] [address] * ECG 12 lead (06/01/2024 11:27 AM CDT) 06/01/2024 11:2 7 AM CDT Narrative [facility] - 06/01/2024 11:53 AM CDT Vent Rate: 102 bpm RR Interval: 584 msec FL Interval: 0 msec QRS Duration: 149 msec QT Interval: 387 msec QTC Interval: 446 msec P-R-T Bentley: 0 - 115 - 66 degrees IMPRESSION: ATRIAL FIBRILLATION WITH RAPID VENTRICULAR RESPONSE WITH ABERRANT CONDUCTION OR VENTRICULAR PREMATURE COMPLEXES INDETERMINATE AXIS INTRAVENTRICULAR CONDUCTION DELAY ??[130+ ms QRS DURATION] ABNORMAL ECG NO CHANGE FROM PREVIOUS TRACING NOTED Electronically Signed By: Antonio Carlos MD Ty Mcfarland MD ECG ORDERABLES Final Resul t Performing Organization Address [facility] Co de Phone Number [facility] [employer] [facility] * POCT glucose (06/01/2024 6:50 AM CDT) Glucose, POC 121 70 - 199 mg/dL Blood 06/01/2024 6:50 AM CDT 06/01/2024 6:50 AM CDT Elly Julian MD LAB POCT ORDERABLES - DEVICE Final Result Performing Organization Address [facility] Co de Phone Number OLAMIDE CAR [address] [address] Department of [employer] [place] [address] * eGFR (06/01/2024 4:49 AM CDT) Pathologist [facility] eGFR >90 >=60 mL/min/1. 73 m2 Comment: [...] ORDERABLES F inal Result Performing Organization Address City/[facility] [place] [address] [address] Department [place] [address] * Differential, auto (06/01/2024 4:49 AM CDT) Pathologist [facility] Neutrophil abs 4.8 1.5 - 6.5 K/cumm Imm gran abs 0.1 0.0 - 0.1 K/cumm [facility] Lymphocyte abs 1.3 0.8 - 3.3 K/cumm [facility] Monocyte abs 0.7 0.2 - 0.8 K/cumm [facility] Eosinophil abs 0.2 0.0 - 0.5 K/cumm [facility] Basophil abs 0.1 0.0 - 0.1 K/cumm [facility] Neutrophil pct 67.6 % [facility] Comment: Interpretive Data Percent cell count reference ranges are not reported, since discordance with absolute values may lead to misinterpretation of CBC data. Current Interpretive Data was last revised on 2018. Imm gran pct 0.9 % [facility] Comment: Interpretive Data Percent cell count reference ranges are not reported, since discordance with absolute values may lead to misinterpretation of CBC data. Current Interpretive Data was last revised on 2018. Lymphocyte pct 18.5 % [facility] Comment: Interpretive Data Percent cell count reference ranges are not reported, since discordance with absolute values may lead to misinterpretation of CBC data. Current Interpretive Data was last revised on 2018. Monocyte pct 9.3 % [facility] Comment: Interpretive Data Percent cell count reference ranges are not reported, since discordance with absolute values may lead to misinterpretation of CBC data. Current Interpretive Data was last revised on 2018. Eosinophil pct 2.6 % [facility] Comment: Interpretive Data [...] BLOOD ORDERABLES F inal Result OLAM[facility] CAR [address] Department [place] [address] * Phosphorus (06/01/2024 4:49 AM CDT) Pathologist [facility] Phosphorus, pl 3.1 2.3 - 4.5 mg/dL Blood 06/01/2024 4:49 AM CDT 06/01/2024 4:54 AM CDT Elly Julian MD LAB BLOOD ORDERABLE S Final Result ZAKIYAI[facility] [address] [address] Department [employer] [place] [address] * Magnesium (06/01/2024 4:49 AM CDT) [facility] Magnesium 2.0 1.4 - 2.5 mg/dL Blood 06/01/2024 4:49 AM CDT 06/01/2024 4:54 AM CDT Mike Hollis MD LAB BLOOD ORDERABLES F inal Result OLAMIDE CAR [address] [address] Department [place] [address] * (ABNORMAL) Comprehensive metabolic panel (06/01/2024 4:49 AM CDT) Pathologist [facility] Sodium 131(L) 135 - 145 mmol/L Potassium, pl 3.8 3.3 - 4.9 mmol/L [facility] Chloride 93(L) 97 - 110 mmol/L [facility] CO2 29 22 - 32 mmol/L [facility] Anion gap 9 2 - 15 mmol/L [facility] BUN 13 6 - 25 mg/dL [facility] Creatinine 0.67 0.60 - 1.10 mg/dL [facility] Glucose 111 70 - 199 mg/dL [facility] [...] MD LAB BLOOD ORDERABLES F inal Result [facility] [address] [address] Department [place] [address] * (ABNORMAL) CBC with auto differential (06/01/2024 4:49 AM CDT) WBC 7.0 3.8 - 9.9 K/cumm Hgb 11.5(L) 11.9 - 15.5 g/dL [facility] Hct 36.0 35.6 - 45.5 % [facility] Plt 337 150 - 400 K/cumm [facility] MPV 9.2 9.1 - 12.3 fL [facility] RBC 3.48(L) 3.90 - 5.20 M/cumm [facility] MCV 103.4(H) 81.3 - 96.4 fL [facility] MCH 33.0 27.1 - 33.3 pg [facility] MCHC 31.9(L) 32.3 - 35.7 g/dL [facility] RDW CV 13.9 11.1 - 14.9 % [facility] RDW SD 52.4(H) 35.7 - 48.1 fL [facility] NRBC abs 0.00 0.00 - 0.01 K/cumm [facility] Blood 06/01/2024 4:49 AM CDT 06/01/2024 4:54 AM CDT Mike Hollis MD LAB BLOOD ORDERABLES F inal Result Performing Organization Address [facility] Co de Phone Number [facility] [address] [address] Department of [employer] [place] [address] * ECG 12 lead (05/31/2024 11:02 PM CDT) 05/31/2024 11:0 2 PM CDT Narrative [facility] - 06/01/2024 7:10 AM CDT Vent Rate: 83 bpm RR Interval: 716 msec FL Interval: 0 msec QRS Duration: 154 msec QT Interval: 409 msec QTC Interval: 449 msec P-R-T Bentley: 0 - 123 - 189 degrees IMPRESSION: ATRIAL FIBRILLATION INTRAVENTRICULAR CONDUCTION DELAY LATERAL MYOCARDIAL INFARCTION , OF INDETERMINATE AGE Electronically Signed By: Cristino Kingsley MD, [facility] Ty Mcfarland MD ECG ORDERABLES Final Resul t Performing Organization Address [facility] Phone Number [facility] * (ABNORMAL) POCT glucose (05/31/2024 8:36 PM CDT) [facility] Glucose, POC 270(H) 70 - 199 mg/dL Blood 05/31/2024 8:36 PM CDT 05/31/2024 8:36 PM CDT Elly Julian MD LAB POCT ORDERABLES - DEVICE Final Result Performing Organization Address [facility] Co de Phone Number [facility] [phone] [address] Department of [employer] [place] [address] * (ABNORMAL) POCT glucose (05/31/2024 4:47 PM CDT) Glucose, POC 203(H) 70 - 199 mg/dL Blood 05/31/2024 4:47 PM CDT 05/31/2024 4:47 PM CDT Elly Julian MD LAB POCT ORDERABLES - DEVICE Final Result Performing Organization Address [facility] de Phone Number OLAMIDE CAR [address] [place] Department of [employer] [place] [address] * ECG 12 lead (05/31/2024 12:42 PM CDT) 05/31/2024 12:4 2 PM CDT Narrative [facility] - 05/31/2024 9:55 PM CDT Vent Rate: 74 bpm RR Interval: 810 msec FL Interval: 0 msec QRS Duration: 151 msec QT Interval: 449 msec QTC Interval: 476 msec P-R-T Bentley: 0 - 102 - 146 degrees IMPRESSION: VENTRICULAR PACED RHYTHM Electronically Signed By: Cristino Kingsley MD, [facility] Ty Mcfarland MD ECG ORDERABLES Final Resul t Performing Organization Address [facility] de Phone Number [facility] * POCT glucose (05/31/2024 10:31 AM CDT) Glucose, POC 142 70 - 199 mg/dL Blood 05/31/2024 10:3 1 AM CDT 05/31/2024 10:31 AM CDT Elly Julian MD LAB POCT ORDERABLES - DEVICE Final Result Performing Organization Address [facility] Co de Phone Number OLAMIDE CAR [address] [address] Department [employer] [place] [address] * POCT glucose (05/31/2024 7:52 AM CDT) Glucose, POC 185 70 - 199 mg/dL Blood 05/31/2024 7:52 AM CDT 05/31/2024 7:52 AM CDT Elly Julian MD LAB POCT ORDERABLES - DEVICE Final Result Performing Organization Address City/[facility] Co de Phone Number OLAMIDE CAR [phone] [facility] [employer] [place] [address] * (ABNORMAL) POCT glucose (05/31/2024 6:21 AM CDT) Glucose, POC 234(H) 70 - 199 mg/dL Blood 05/31/2024 6:21 AM CDT 05/31/2024 6:21 AM CDT Elly Julian MD LAB POCT ORDERABLES - DEVICE Final Result Performing Organization Address [facility] de Phone Number OLAMIDE CAR [address] [address] Department [employer] [place] [address] * eGFR (05/31/2024 3:05 AM CDT) eGFR [...] MD LAB BLOOD ORDERABLES F inal Result [facility] [address] [address] Department of Laboratories [place], [place] [id number] * Differential, auto (05/31/2024 3:05 AM CDT) Neutrophil abs 5.8 1.5 - 6.5 K/cumm Imm gran abs 0.1 0.0 - 0.1 K/cumm [facility] Lymphocyte abs 1.1 0.8 - 3.3 K/cumm [facility] Monocyte abs 0.7 0.2 - 0.8 K/cumm [facility] Eosinophil abs 0.2 0.0 - 0.5 K/cumm [facility] Basophil abs 0.1 0.0 - 0.1 K/cumm [facility] Neutrophil pct 73.2 % [facility] Comment: Interpretive Data Percent cell count reference ranges are not reported, since discordance with absolute values may lead to misinterpretation of CBC data. Current Interpretive Data was last revised on 2018. Imm gran pct 1.6 % [facility] Comment: Interpretive Data Percent cell count reference ranges are not reported, since discordance with absolute values may lead to misinterpretation of CBC data. Current Interpretive Data was last revised on 2018. Lymphocyte pct 14.2 % [facility] Comment: Interpretive Data Percent cell count reference ranges are not reported, since discordance with absolute values may lead to misinterpretation of CBC data. Current Interpretive Data was last revised on 2018. Monocyte pct 8.2 % [facility] Comment: Interpretive Data Percent cell count reference ranges are not reported, since discordance with absolute values may lead to misinterpretation of CBC data. Current Interpretive Data was last revised on 2018. Eosinophil pct 2.0 % [facility] Comment: Interpretive Data Percent cell count reference ranges are not reported, since discordance with absolute values may lead to misinterpretation of CBC data. Current Interpretive Data was last revised on 2018. Basophil pct 0.8 % [facility] Comment: Interpretive Data Percent cell count reference ranges are not reported, since discordance with absolute values may lead to misinterpretation of CBC data. Current Interpretive Data was last revised on 2018. Blood 05/31/2024 3:05 AM CDT 05/31/2024 4:12 AM CDT Mike Hollis MD LAB BLOOD ORDERABLES F inal Result Performing Organization Address [facility] Co de Phone Number ZAKIYAIZZY [phone] [address] Department [employer] [place], [place] [id number] * Phosphorus (05/31/2024 3:05 AM CDT) Phosphorus, pl 3.7 2.3 - 4.5 mg/dL Blood 05/31/2024 3:05 AM CDT 05/31/2024 4:11 AM CDT Elly Julian MD LAB BLOOD ORDERABLE S Final Result Performing Organization Address [facility] Co de Phone Number ZAKIYAIZZY [phone] [address] Department [employer] [place] [address] * Magnesium (05/31/2024 3:05 AM CDT) Magnesium 2.1 1.4 - 2.5 mg/dL Blood 05/31/2024 3:05 AM CDT 05/31/2024 4:11 AM CDT Mike Hollis MD LAB BLOOD ORDERABLES F inal Result Performing Organization Address City/[facility]/ZIP Co de Phone Number ZAKIYAIZZY [address] [address] Department [place] [address] * (ABNORMAL) Comprehensive metabolic panel (05/31/2024 3:05 [...] Glucose 176 70 - 199 mg/dL [facility] Comment: [...] MD LAB BLOOD ORDERABLES F inal Result [facility] [address] [address] Department [place] [address] * (ABNORMAL) CBC with auto differential (05/31/2024 3:05 AM CDT) [facility] WBC 7.9 3.8 - 9.9 K/cumm Hgb 11.9 11.9 - 15.5 g/dL [facility] Hct 37.0 35.6 - 45.5 % [facility] Plt 309 150 - 400 K/cumm [facility] MPV 9.7 9.1 - 12.3 fL [facility] RBC 3.64(L) 3.90 - 5.20 M/cumm [facility] MCV 101.6(H) 81.3 - 96.4 fL [facility] MCH 32.7 27.1 - 33.3 pg [facility] MCHC 32.2(L) 32.3 - 35.7 g/dL [facility] RDW CV 14.5 11.1 - 14.9 % [facility] RDW SD 53.9(H) 35.7 - 48.1 fL [facility] NRBC abs 0.00 0.00 - 0.01 K/cumm [facility] Blood 05/31/2024 3:05 AM CDT 05/31/2024 4:12 AM CDT Mike Hollis MD LAB BLOOD ORDERABLES F inal Result Performing Organization Address City/[facility] Co de Phone Number [facility] [phone] [address] [employer] [place], [place] [id number] * POCT glucose (05/31/2024 1:59 AM CDT) [facility] Glucose, POC 173 70 - 199 mg/dL Blood 05/31/2024 1:59 AM CDT 05/31/2024 1:59 AM CDT Elly Julian MD LAB POCT ORDERABLES - DEVICE Final Result Performing Organization Address [facility] Co de Phone Number [facility] [phone] [address] Department [employer] [place], [place] [id number] * ECG 12 lead (05/30/2024 11:23 PM CDT) 05/30/2024 11:2 3 PM CDT Narrative [facility] - 05/31/2024 7:43 AM CDT Vent Rate: 76 bpm RR Interval: 785 msec FL Interval: 0 msec QRS Duration: 150 msec QT Interval: 471 msec QTC Interval: 501 msec P-R-T Bentley: 0 - 80 - 97 degrees IMPRESSION: ATRIAL FIBRILLATION WITH ABERRANT CONDUCTION OR VENTRICULAR PREMATURE COMPLEXES INTRAVENTRICULAR CONDUCTION DELAY ??[130+ ms QRS DURATION] ABNORMAL ECG Electronically Signed By: Dr. Shiloh Muhammad [facility] Ty Mcfarland MD ECG ORDERABLES Final Resul t Performing Organization Address [facility] Co de Phone Number [facility] [employer] [facility] * (ABNORMAL) POCT glucose (05/30/2024 8:52 PM CDT) Glucose, POC 296(H) 70 - 199 mg/dL Blood 05/30/2024 8:52 PM CDT 05/30/2024 8:52 PM CDT Elly Julian MD LAB POCT ORDERABLES - DEVICE Final Result Performing Organization Address [facility] de Phone Number [facility] [phone] [address] Department [employer] [place] [address] * POCT glucose (05/30/2024 5:20 PM CDT) Glucose, POC 179 70 - 199 mg/dL Blood 05/30/2024 5:20 PM CDT 05/30/2024 5:20 PM CDT Elly Julian MD LAB POCT ORDERABLES - DEVICE Final Result Performing Organization Address [facility] de Phone Number [facility] [phone] [address] Department of [employer] [place] [address] * (ABNORMAL) POCT glucose (05/30/2024 12:03 PM CDT) Glucose, POC 206(H) 70 - 199 mg/dL Blood 05/30/2024 12:0 3 PM CDT 05/30/2024 12:03 PM CDT Elly Julian MD LAB POCT ORDERABLES - DEVICE Final Result Performing Organization Address [facility] de Phone Number OLAMIDE [phone] [facility] Department [place] [address] * ECG 12 lead (05/30/2024 11:55 AM CDT) 05/30/2024 11:5 5 AM CDT Narrative [facility] - 05/30/2024 6:40 PM CDT Vent Rate: 109 bpm RR Interval: 548 msec FL Interval: 0 msec QRS Duration: 149 msec QT Interval: 398 msec QTC Interval: 462 msec P-R-T Bentley: 0 - 96 - 89 degrees IMPRESSION: ATRIAL FIBRILLATION WITH RAPID VENTRICULAR RESPONSE BORDERLINE RIGHT AXIS DEVIATION ??[QRS AXIS > 90] INTRAVENTRICULAR CONDUCTION DELAY ??[130+ ms QRS DURATION] ABNORMAL ECG Unchanged compared to an EKG done earlier on May 30, 2024 Electronically Signed By: Dr. Shiloh Muhammad [facility] us Ty Mcfarland MD ECG ORDERABLES Final Resul t Performing Organization Address [facility] de Phone Number [employer] [facility] * CT Chest WO Contrast (05/30/2024 11:22 [...] CBC without differential (05/30/2024 9:35 AM CDT) WBC 10.6(H) 3.8 - 9.9 K/cumm Hgb 11.7(L) 11.9 - 15.5 g/dL [facility] Hct 36.2 35.6 - 45.5 % [facility] Plt 309 150 - 400 K/cumm [facility] MPV 9.1 9.1 - 12.3 fL [facility] RBC 3.58(L) 3.90 - 5.20 M/cumm [facility] MCV 101.1(H) 81.3 - 96.4 fL [facility] MCH 32.7 27.1 - 33.3 pg [facility] MCHC 32.3 32.3 - 35.7 g/dL [facility] RDW CV 14.5 11.1 - 14.9 % [facility] RDW SD 53.8(H) 35.7 - 48.1 fL [facility] NRBC abs 0.00 0.00 - 0.01 K/cumm [facility] Blood 05/30/2024 9:35 AM CDT 05/30/2024 9:41 AM CDT Ty Mcfarland MD LAB BLOOD ORDERABLES Final Result Performing Organization Address City/State/[facility] Phone Number OL[facility] [phone] [facility] Department [place] [address] * ECG 12 lead (05/30/2024 8:34 AM CDT) 05/30/2024 8:34 AM CDT Narrative [facility] - 05/30/2024 8:49 AM CDT Vent Rate: 86 bpm RR Interval: 697 msec FL Interval: 0 msec QRS Duration: 145 msec QT Interval: 438 msec QTC Interval: 481 msec P-R-T Bentley: 0 - 101 - 95 degrees IMPRESSION: ATRIAL FIBRILLATION RIGHT AXIS DEVIATION ??[QRS AXIS > 100] INTRAVENTRICULAR CONDUCTION DELAY ??[130+ ms QRS DURATION] ABNORMAL ECG Unchanged compared to 05/29/2021 Electronically Signed By: Dr. Shiloh Muhammad [facility] Ty Mcfarland MD ECG ORDERABLES Final Resul t [facility] * TRANSTHORACIC ECHO (TTE) COMPLETE W DOPPLER/CF WO CONTRAST (05/30/2024 8:25 AM CDT) Anatomical Region Laterality Modality Ultrasound 05/30/2024 7:47 AM CDT Narrative 05/30/2024 9:18 [place] [address] Echocardiogram Report Patient Name: LEI RODRIGUEZ V : 1960 Study Date: 05/30/2024 7:47:08 AM Gender: F Tech: GUILHERME Location: [id number] Ref Provider: TY MCFARLAND ?Height(Cm): 165 BSA: [...] 3.70 ] cm ? MV E Peak Chadd ? 1.00 ? [ 0.60 - 1.30 [...] Procedure Note Coleen Kwok DO - 05/30/2024 [place] [address] Echocardiogram Report Patient Name: LEI RODRIGUEZ V : 1960 Study Date: 05/30/2024 7:47:08 AM Gender: F Tech: GUILHERME Location: [id number] Ref Provider: TY MCFARLAND Height(Cm): 165 BSA: [...] ANDREE BERGERON FASNC 2024-05-30 09:18:05 CDT CC: CC: CC: Ty [...] hs pct delta See Comment % OL[facility] CAR Comment:Inappropriate collec tion time to report a delta. Trop T hs interp See Comment OL[facility] CAR Comment:Inappropriate collec tion time to report a delta. Blood 05/30/2024 6:20 AM CDT 05/30/2024 6:26 AM CDT Mike Hollis MD LAB BLOOD ORDERABLES F inal Result OLAMIDE CAR [address] [address] Department [place] [address] * eGFR (05/30/2024 4:28 AM CDT) eGFR [...] MD LAB BLOOD ORDERABLES [place] [address] [address] Department [place] [address] * (ABNORMAL) Differential, auto (05/30/2024 4:28 AM CDT) Neutrophil abs 8.0(H) 1.5 - 6.5 K/cumm Imm gran abs 0.1 0.0 - 0.1 K/cumm [facility] Lymphocyte abs 1.4 0.8 - 3.3 K/cumm [facility] Monocyte abs 0.8 0.2 - 0.8 K/cumm [facility] Eosinophil abs 0.1 0.0 - 0.5 K/cumm [facility] Basophil abs 0.1 0.0 - 0.1 K/cumm [facility] Neutrophil pct 76.0 % [facility] Comment: Interpretive Data Percent cell count reference ranges are not reported, since discordance with absolute values may lead to misinterpretation of CBC data. Current Interpretive Data was last revised on 2018. Imm gran pct 1.3 % [facility] Comment: Interpretive Data Percent cell count reference ranges are not reported, since discordance with absolute values may lead to misinterpretation of CBC data. Current Interpretive Data was last revised on 2018. Lymphocyte pct 13.4 % [facility] Comment: Interpretive Data Percent cell count reference ranges are not reported, since discordance with absolute values may lead to misinterpretation of CBC data. Current Interpretive Data was last revised on 2018. Monocyte pct 7.8 % [facility] Comment: Interpretive Data Percent cell count reference ranges are not reported, since discordance with absolute values may lead to misinterpretation of CBC data. Current Interpretive Data was last revised on 2018. Eosinophil pct 0.9 % [facility] Comment: Interpretive Data Percent cell count reference ranges are not reported, since discordance with absolute values may lead to misinterpretation of CBC data. Current Interpretive Data was last revised on 2018. Basophil pct 0.6 % [facility] Comment: Interpretive Data Percent cell count reference ranges are not reported, since discordance with absolute values may lead to misinterpretation of CBC data. Current Interpretive Data was last revised on 2018. Blood 05/30/2024 4:28 AM CDT 05/30/2024 6:00 AM CDT us Mike Hollis MD LAB BLOOD ORDERABLES F inal Result OLAMIDE [id number] [address] Department of [employer] [place] [address] * (ABNORMAL) Troponin T high-sensitivity 4-hour (05/30/2024 [...] MD LAB BLOOD ORDERABLES F inal Result [facility] [address] [address] Department [place] [address] * Blood culture Blood (05/30/2024 4:28 AM CDT) Report Final Report: No growth Comment:Testing performed by : [facility], [address], [place]., [address] Blood 05/30/2024 4:28 AM CDT 05/30/2024 9:52 AM CDT Narrative [facility] - 06/03/2024 12:00 PM CDT From a [...] organism identification may be performed using the K[employer] Gram-Positive Blood Culture Assay. This assay detects microbial DNA in positive blood culture broth via hybridization of target DNA to capture oligonucleotides on a microarray. This assay has been cleared by the [place] Food and Drug Administration and its performance characteristics have been verified by the [facility] Microbiology Laboratory. 5. ?For questions about this culture, contact the Microbiology Laboratory at [phone]. Interpretive data was last revised on 2020. Mike Hollis MD LAB MICROBIOLOGY - GEN ERAL ORDERABLES Final Result OLAM[facility] CAR [address] [address] Department [place] [address] * Blood culture Blood (05/30/2024 4:28 AM CDT) Report Final Report: No growth Comment:Testing performed by : [facility], [address] [place] [address], [place]., [address] Blood 05/30/2024 4:28 AM CDT 05/30/2024 9:52 AM CDT Narrative OL[facility] Lora 06/03/2024 12:00 PM CDT Collection->Peripheral 1. ?Blood [...] organism identification may be performed using the [employer] Gram-Positive Blood Culture Assay. This assay detects microbial DNA in positive blood culture broth via hybridization of target DNA to capture oligonucleotides on a microarray. This assay has been cleared by the [place] Food and Drug Administration and its performance characteristics have been verified by the [facility]biology Laboratory. 5. ?For questions about this culture, contact the Microbiology Laboratory at [phone]. Interpretive data was last revised on 2020. Mike Hollis MD LAB MICROBIOLOGY - GEN ERAL ORDERABLES Final Result Performing Organization Address [facility] de Phone Number OLAMIDE CAR [address] [address] Department of [employer] [place] [address] * Magnesium (05/30/2024 4:28 AM CDT) Pathologist [facility] Magnesium 2.1 1.4 - 2.5 mg/dL Blood 05/30/2024 4:28 AM CDT 05/30/2024 6:00 AM CDT Mike Hollis MD LAB BLOOD ORDERABLES F inal Result Performing Organization Address [facility] de Phone Number OLAMIDE [phone] [address] Department of [employer] [place] [address] * (ABNORMAL) Comprehensive metabolic panel (05/30/2024 4:28 AM CDT) Sodium 132(L) 135 - 145 mmol/L Potassium, pl 4.6 3.3 - 4.9 mmol/L C[facility] Chloride 95(L) 97 - 110 mmol/L [facility] CO2 27 22 - 32 mmol/L [facility] Anion gap 10 2 - 15 mmol/L [facility] BUN 10 6 - 25 mg/dL CERNER [...] MD LAB BLOOD ORDERABLES F inal Result [facility] [address] [address] Department [place] [address] * (ABNORMAL) CBC with auto differential (05/30/2024 4:28 AM CDT) WBC 10.5(H) 3.8 - 9.9 K/cumm Hgb 11.3(L) 11.9 - 15.5 g/dL [facility] Hct 35.8 35.6 - 45.5 % [facility] Plt 283 150 - 400 K/cumm [facility] MPV 9.4 9.1 - 12.3 fL [facility] RBC 3.53(L) 3.90 - 5.20 M/cumm [facility] MCV 101.4(H) 81.3 - 96.4 fL [facility] MCH 32.0 27.1 - 33.3 pg [facility] MCHC 31.6(L) 32.3 - 35.7 g/dL [facility] RDW CV 14.6 11.1 - 14.9 % [facility] RDW SD 54.4(H) 35.7 - 48.1 fL [facility] NRBC abs 0.00 0.00 - 0.01 K/cumm [facility] Blood 05/30/2024 4:28 AM CDT 05/30/2024 6:00 AM CDT us Mike Hollis MD LAB BLOOD ORDERABLES F inal Result [facility] [address] [address] Department [place] [address] * CT Chest PE (CTA) W Contrast [...] findings as described above. Stat report by [facility] . Electronically signed by: Andrea Abernathy M.D. Narrative 05/30/2024 8:12 AM CDT EXAMINATION: CT CHEST PE (CTA) W CONTRAST HISTORY: Chest pain ORDER DATE: 05/30/2024 3:20 AM TECHNIQUE: ?? CT chest images were acquired using a chest angiographic protocol with 3-D imaging optimized for PE ??is obtained [id number] mL of Optiray 350 IV. 2D Coronal [...] findings as described above. Stat report by [facility] . Electronically signed by: Andrea Abernathy M.D. Mike Hollis MD IMG CT PROCEDURES Ayanna l Result * POCT glucose (05/30/2024 12:50 AM CDT) Glucose, POC 129 70 - 199 mg/dL Blood 05/30/2024 12:5 0 AM CDT 05/30/2024 12:50 AM CDT Nba Tubbs MD LAB POCT ORDERABLES - DEVICE Final Result [facility] [phone] [address] Department of [employer] [place] [address] * CT Cervical Spine WO Contrast (05/29/2024 11:18 PM CDT) Anatomical Region Laterality Modality Spine N/A Computed Tomogra phy 05/29/2024 11:0 7 PM CDT Impressions 05/30/2024 7:49 AM CDT No acute cervical spine injury. Stat report by [facility] Stat report by [facility] Electronically signed by: Andrea Abernathy M.D. Narrative [...] and partially calcified bulging disc contributing to [id number] central spinal stenosis. ??Disc osteophyte complex also contributing to [id number] central spinal stenosis at C4-C5 level. ??No [...] and partially calcified bulging disc contributing to [id number]-uptadtsa central spinal stenosis. Disc osteophyte complex also contributing to wcdh-pu-ivhoifef central spinal stenosis at C4-C5 level. No significant disc bulge or herniation. No severe spinal canal stenosis. Uncovertebral joint hypertrophy contributing to multilevel bilateral neural foraminal stenosis. Lungs: Lung apices are normal. Soft tissues: Unremarkable. IMPRESSION: No acute cervical spine injury. Stat report by [facility] Stat report by [facility] Electronically signed by: Andrea Abernathy M.D. Mike Hollis MD IM CT PROCEDURES Ayanna l Result * CT Head WO Contrast (05/29/2024 11:18 PM CDT) Anatomical Region Laterality Modality Head and Neck N/A Computed Tomogra phy 05/29/2024 11:0 7 PM CDT Impressions 05/30/2024 7:45 AM CDT No acute intracranial findings. Stat report by [facility] Electronically signed by: Andrea Abernathy M.D. Narrative [...] No acute intracranial findings. Stat report by [facility] Electronically signed by: Andrea Abernathy M.D. Mike [...] 457. Electronically signed by: Abilio Post M.D. Narrative [...] by: Abilio Post M.D. Mike Hollis MD [facility] XR PROCEDURES Ayanna l Result * (ABNORMAL) Troponin T high-sensitivity series (baseline, 2hr, 4hr, 6hr) (05/29/2024 11:00 PM CDT) Trop T hs 24(H) <=14 ng/L Comment: [...] MD LAB BLOOD ORDERABLES F inal Result [facility] [address] [address] Department of Laboratories [place] [id number] * (ABNORMAL) Pro B-type natriuretic peptide (05/29/2024 [...] et.al. Eur Heart J. 2006:27:330-337. 2. Chris HERNANDEZ, Jeo QUIROS. J. AM Dave Cardiol: Cardiovasc Imag. 2009;2: 216- 225. Interpretive Data Last Revised Date: 2018. Blood 05/29/2024 11:0 0 PM CDT 05/30/2024 2:07 AM CDT Mike Hollis MD LAB BLOOD ORDERABLES F inal Result Performing Organization Address City/State/[facility] Co de Phone Number ZAKIYAWLC [address] [address] Department of Laboratories [place] [phone] * eGFR (05/29/2024 10:53 PM CDT) eGFR [...] MD LAB BLOOD ORDERABLES F inal Result [facility] [address] [address] Department [place] [address] * Differential, auto (05/29/2024 10:53 PM CDT) Neutrophil abs 6.0 1.5 - 6.5 K/cumm Imm gran abs 0.1 0.0 - 0.1 K/cumm [facility] Lymphocyte abs 1.6 0.8 - 3.3 K/cumm [facility] Monocyte abs 0.8 0.2 - 0.8 K/cumm [facility] Eosinophil abs 0.1 0.0 - 0.5 K/cumm [facility] Basophil abs 0.1 0.0 - 0.1 K/cumm [facility] Neutrophil pct 69.3 % [facility] Comment: Interpretive Data Percent cell count reference ranges are not reported, since discordance with absolute values may lead to misinterpretation of CBC data. Current Interpretive Data was last revised on 2018. Imm gran pct 1.4 % [facility] Comment: Interpretive Data Percent cell count reference ranges are not reported, since discordance with absolute values may lead to misinterpretation of CBC data. Current Interpretive Data was last revised on 2018. Lymphocyte pct 18.2 % CERNER Comment: Interpretive Data Percent cell count reference ranges are not reported, since discordance with absolute values may lead to misinterpretation of CBC data. Current Interpretive Data was last revised on 2018. Monocyte pct 8.7 % CERNER Comment: Interpretive Data Percent cell count reference ranges are not reported, since discordance with absolute values may lead to misinterpretation of CBC data. Current Interpretive Data was last revised on 2018. Eosinophil pct 1.6 % CERNER Comment: Interpretive Data Percent cell count reference ranges are not reported, since discordance with absolute values may lead to misinterpretation of CBC data. Current Interpretive Data was last revised on 2018. Basophil pct 0.8 % CERNER Comment: Interpretive Data Percent cell count reference ranges are not reported, since discordance with absolute values may lead to misinterpretation of CBC data. Current Interpretive Data was last revised on 2018. Blood 05/29/2024 10:5 3 PM CDT 05/29/2024 11:09 PM CDT us Mike Hollis MD LAB BLOOD ORDERABLES F inal Result [facility] [address] [address] Department [place] [address] * (ABNORMAL) Hepatic function panel (05/29/2024 10:53 PM CDT) Bilirubin, total 0.9 0.1 - 1.2 mg/dL Bilirubin, direct 0.2 0.1 - 0.3 mg/dL [facility] Comment:Hemolysis present. R esults may be affected. Protein, pl 6.9 6.5 - 8.5 g/dL [facility] Albumin 2.7(L) 3.5 - 5.0 g/dL [facility] Alk phos 398(H) 40 - 130 Units/L [facility] ALT 14 7 - 45 Units/L [facility] Comment:Hemolysis present. R esults may be affected. AST 51(H) 10 - 45 Units/L [facility] Comment:Hemolysis present. R esults may be affected. Blood 05/29/2024 10:5 3 PM CDT 05/29/2024 11:09 PM CDT Narrative [facility] - 05/29/2024 11:36 PM CDT Baseline prior to rivaroxaban initiation Mike Hollis MD LAB BLOOD ORDERABLES F inal Result Performing Organization Address [facility] Co de Phone Number [facility] [phone] [address] Department [employer] [place] [address] * (ABNORMAL) Protime-INR (05/29/2024 10:53 PM CDT) PT 15.4(H) 9.7 - 13.0 sec INR 1.42(H) 0.90 - 1.20 [facility] Comment: Interpretive data Oral anticoagulant therapeutic ranges: Venous thromboembolism prophylaxis or treatment: 2.0-3.0 CARDIOLOGY Standard range: 2.0-3.0 High-intensity range: 2.5-3.5 Refer to indication-specific guidelines for appropriate target ranges for prosthetic heart valve replacement. Current interpretive data was last revised on 2019. Blood 05/29/2024 10:5 3 PM CDT 05/29/2024 11:09 PM CDT Narrative [facility] 05/29/2024 11:29 PM CDT Baseline prior to rivaroxaban initiation Mike Hollis MD LAB BLOOD ORDERABLES F inal Result Performing Organization Address [facility] Co de Phone Number [facility] [phone] [address] Department [employer] [place] [address] * Lactate (05/29/2024 10:53 PM CDT) Lactate 1.5 0.7 - 2.0 mmol/L Blood 05/29/2024 10:5 3 PM CDT 05/29/2024 11:09 PM CDT Mike Hollis MD LAB BLOOD ORDERABLES F inal Result Performing Organization Address [facility] de Phone Number [facility] CAR [address] [facility] [employer] [place] [address] * aPTT (05/29/2024 10:53 PM CDT) Pathologist [facility] aPTT 28 28 - 38 sec Comment: Interpretive Data Heparin therapeutic range: 66.0 - 100.0 seconds. Range based on correlation with therapeutic heparin activity range of 0.3 - 0.7 Units/mL. Current interpretive data was last revised on 2023. Blood 05/29/2024 10:5 3 PM CDT 05/29/2024 11:09 PM CDT Mike Hollis MD LAB BLOOD ORDERABLES F inal Result Performing Organization Address [facility] de Phone Number [facility] CAR [address] [facility] [employer] [place] [address] * Magnesium (05/29/2024 10:53 PM CDT) [facility] Magnesium 2.2 1.4 - 2.5 mg/dL Blood 05/29/2024 10:5 3 PM CDT 05/29/2024 11:09 PM CDT Mike Hollis MD LAB BLOOD ORDERABLES F inal Result Performing Organization Address [facility] de Phone Number OL[facility] CAR [address] [address] Department [employer] [place] [address] * (ABNORMAL) Basic metabolic panel (05/29/2024 10:53 PM CDT) Pathologist [facility] Sodium 133(L) 135 - 145 mmol/L Potassium, pl 5.1(H) 3.3 - 4.9 mmol/L [facility] Comment:Hemolysis present. R esults may be affected. Chloride 98 97 - 110 mmol/L [facility] CH CO2 26 22 - 32 mmol/L [facility] CH Anion gap 9 2 - 15 mmol/L [facility] BUN 9 6 - 25 mg/dL [facility] Creatinine 0.58(L) 0.60 - 1.10 mg/dL [facility] Glucose 90 70 - 199 mg/dL [facility] [...] 2022. Calcium 8.6 8.5 - 10.3 mg/dL [facility] Blood 05/29/2024 10:5 3 PM CDT 05/29/2024 11:09 PM CDT us Mike Hollis MD LAB BLOOD ORDERABLES F inal Result [facility] [address] [address] Department [place] [address] * (ABNORMAL) CBC with auto differential (05/29/2024 10:53 PM CDT) WBC 8.6 3.8 - 9.9 K/cumm Hgb 12.2 11.9 - 15.5 g/dL [facility] Hct 36.9 35.6 - 45.5 % [facility] Plt 286 150 - 400 K/cumm [facility] MPV 10.0 9.1 - 12.3 fL [facility] RBC 3.76(L) 3.90 - 5.20 M/cumm [facility] MCV 98.1(H) 81.3 - 96.4 fL [facility] MCH 32.4 27.1 - 33.3 pg [facility] MCHC 33.1 32.3 - 35.7 g/dL [facility] RDW CV 14.6 11.1 - 14.9 % [facility] RDW SD 53.0(H) 35.7 - 48.1 fL [facility] NRBC abs 0.00 0.00 - 0.01 K/cumm [facility] Blood 05/29/2024 10:5 3 PM CDT 05/29/2024 11:09 PM CDT Mike Hollis MD LAB BLOOD ORDERABLES F inal Result Performing Organization Address [facility] Co de Phone Number [facility] CAR [address] [address] Department [employer] [place] [address] * ECG 12 lead (05/29/2024 10:29 PM CDT) 05/29/2024 10:2 9 PM CDT Narrative [facility] - 05/30/2024 6:24 AM CDT Vent Rate: 93 bpm RR Interval: 645 msec FL Interval: 0 msec QRS Duration: 97 msec QT Interval: 197 msec QTC Interval: 247 msec P-R-T Bentley: 0 - 118 - 0 degrees IMPRESSION: [...] ECG ORDERABLES Final Result Performing Organization Address [facility] Co de Phone Number [facility] [employer] [facility] * POCT glucose (05/29/2024 8:02 PM CDT) Glucose, POC 108 70 - 199 mg/dL Blood 05/29/2024 8:02 PM CDT 05/29/2024 8:02 PM CDT Nba Tubbs MD LAB POCT ORDERABLES - DEVICE Final Result Performing Organization Address [facility] Co de Phone Number [facility] CAR [address] [address] Department [place] [address] documented in this encounter Visit Diagnoses Diagnosis Endocarditis- Primary Endocarditis, valve unspecified, unspecified cause Diabetes mellitus with hyperglycemia (HCC) Acquired hypothyroidism Unspecified hypothyroidism Acute bacterial endocarditis Acute and subacute bacterial endocarditis Hyponatremia Hyposmolality and/or hyponatremia Acute on chronic systolic congestive heart failure ([facility]) (HCC) SOB (shortness of breath) Shortness of breath Acute on chronic systolic congestive heart failure ([facility]) ([facility]) Neck pain Cervicalgia Hyponatremia Hyposmolality and/or hyponatremia Chronic a-fib ([facility]) ([facility]) Atrial fibrillation Type 2 diabetes mellitus, with long-term current use of insulin ([facility]) Hypothyroid Unspecified hypothyroidism JOSE (obstructive sleep apnea) Obstructive sleep apnea (adult) (pediatric) Diabetes mellitus with hyperglycemia ([facility]) Acute bacterial endocarditis Acute and subacute bacterial [...] at 0858, Indications: constipationIndications:constipation dofetilide (TIKOSYN) capsule 500 mcg 500 mcg, [...] CDT 10 Units Ri ght Lower Abdomen levothyroxine (SYNTHROID) [...] Given 06/06/2024 4:41 AM CDT 75 mcg midodrine (PROAMATINE) tablet 5 mg 5 mg, [...] Given 06/06/2024 9:13 AM CDT 40 mg polyethylene glycol (MIRALAX) packet 17 g 17 g, oral, Daily PRN, constipation, Starting on Tue05/29/24 at 2158, Indications: constipationIndications:constipation Given 06/04/2024 10:43 AM CDT 17 g rivaroxaban (XARELTO) tablet 20 mg 20 mg, [...] (5,000 Units total) by mouth daily multivit nbkqduzn-nfty-WP -calcium (THERA-M) 9 mg iron-400 mcg tablet [...] 2 (two) times a day 09/11/2021 4 potassium chloride ER 20 mEq CR [...] Provider: Lou Francois RN - Reason: Other) 0951 (Given - Provider: Lawson Austin RN)1739 (Given - Provider: Lawson Austin RN) 1044 (Given - Provider: Shereen Preston RN)1722 (Given - Provider: Lawson Austin RN) ceFAZolin (ANCEF) 2,000 mg/100 mL in dextrose (premix) 2,000 mg 2,000 mg, intravenous, at 200 mL/hr, Administer over 30 Minutes, Every 8 hours scheduled, First dose on Tue05/29/24 at 2245, Indications: endocarditis 0441 (New Bag - Provider: Hailee Echeverria RN)1545 (New Bag - Provider: Raghavendra Vaz)2141 (New Bag - Provider: Agnieszka Conroy RN) 0613 (New Bag - Provider: Agnieszka Conroy RN)1424 (New Bag - Provider: Lawson Austin RN)2218 (New Bag - Provider: Anat Lebron) 0643 (New Bag - Provider: nAat Lebron)1406 (New Bag - Provider: Lawson Austin RN) dilTIAZem (CARDIZEM) tablet 30 mg 30 mg, oral, 3 times daily, First dose on Tue05/29/24 at 2245 0913 (Given - Provider: Raghavendra Vaz)1600 (Not Given - Provider: Lou Francois RN - Reason: Order parameters not met)2121 (Given - Provider: Agnieszka Conroy RN) 0951 (Given - Provider: Lawson Austin RN)1648 (Given - Provider: Shereen Preston RN)2200 (Given - Provider: Anat Lebron) 1042 [...] RN) 1044 (Given - Provider: Shereen Preston, RN) furosemide (LASIX) 10 mg/mL injection 40 mg [...] RN - Reason: Order parameters not met) 2213 (Not Given - Provider: Anat Lebron - [...] parameters not met)1241 (Given - Provider: Lawson Austin RN)1736 (Not Given - Provider: Shereen Preston RN - Reason: Order parameters not met) 1059 (Not Given - Provider: Shereen Preston RN - Reason: Other - Comment: Cristela JIMENES aware unable to give with breakfast)1257 (Given - Provider: Shereen Preston RN)1728 (Given - Provider: Lawson Austin RN) insulin lispro (HumaLOG, ADMELOG) 100 unit/mL [...] give with breakfast)1257 (Given - Provider: Shereen Preston RN)1722 (Given - Provider: Lawson Austin RN) levothyroxine (SYNTHROID) tablet 75 mcg 75 mcg, oral, Daily (early AM), First dose on Tue05/30/24 at 0600, Administer on an empty stomach, preferably 30 minutes before breakfast. Take 4 hours apart from antacids, iron and calcium products. Separate from tube feeds, if applicable. 0441 (Given - Provider: Hailee Echeverria RN) 0614 (Given - Provider: Agnieszka Conroy, BROWN) 0643 (Given - Provider: Anat Lebron) midodrine [...] - Provider: Anat Lebron)1258 (Given - Provider: Shereen Preston, BROWN)1723 (Given - Provider: Lawson Austin RN) nortriptyline (PAMELOR) capsule 10 mg 10 mg, oral, Nightly, First dose on Tue05/29/24 at 2245 2121 (Given - Provider: Agnieszka Conroy RN) 2199 (Given - Provider: Anat Lebron) pantoprazole DR (PROTONIX) extended release tablet 40 mg 40 mg, oral, Daily, First dose on Tue05/30/24 at 0900, Do not crush, chew, cut, dissolve, open or otherwise manipulate tablet/capsule., Indications: Treatment of Non-Bleeding Gastric Disorder 912 (Given - Provider: Raghavendra Vaz) 950 (Given - Provider: Lawson Austin, BROWN) 104 (Given - Provider: Shereen Preston RN) [...] instructed differently by provider., Indications: atrial fibrillation 165 (Given - Provider: Raghavendra Vaz) 1740 (Given - Provider: Lawson Austin RN) 172 (Given - Provider: Lawson Austin RN) sacubitriL-valsartan (ENTRESTO) 24-26 mg tablet 1 tablet 1 tablet, oral, 2 times daily, First dose on Tue05/30/24 at 0900, Indications: chronic heart failure 912 (Given - Provider: Raghavendra Vaz)2121 (Given - Provider: Agnieszka Conroy RN) 51 (Given - Provider: Lawson Austin, BROWN)2158 (Given - Provider: Anat Lebron) 172 (Given - Provider: Lawson Austin RN) sodium chloride 0.9% flush 5-10 mL 5-10 mL, intra-catheter, Every 12 hours scheduled, First dose on Tue06/01/24 at 1315, Flush volume based on line type, size, and protocol. 1742 (Given - Provider: Raghavendra Vaz)2122 (Given - Provider: Agnieszka Conroy, RN) 0930 (Given - Provider: Lawson Austin, BROWN)2199 (Given - Provider: Anat Lebron) 1103 (Given - Provider: Shereen Preston, BROWN) PRN Medication Order 06/06/2024 06/07/2024 06/08/2024 dextrose [...] Indications: Pain 0601 (Given - Provider: Hailee Echveerria, RN)1914 (Given - Provider: Raghavendra Vaz) ioversoL (OPTIRAY [...] Date docusate sodium (COLACE) capsule 100 mg 2 0 06/06/2024 05/29/2024 ioversoL (OPTIRAY 350) syringe 125 mL 3 05/30/2024 midodrine (PROAMATINE) tablet 5 mg 1 2023 lidocaine (PF) (XYLOCAINE) 1 0 mg/mL (1 %) preservative free injection 1 06/05/2024 dofetilide (TIKOSYN) capsule 500 mcg 2 05/1105/30/2024 dofetilide (TIKOSYN) capsule 250 mcg 05/11 potassium chloride ER (KLOR- CON) extended release tablet 40 mEq 06/02/2024 lidocaine (XYLOCAINE) 10 mg/ mL (1 %) injection 10-20 mg 06/01/2024 sodium chloride 0.9% flush 5-10 mL 2023 sodium chloride 0.9% flush 5-20 mL 2023 insulin glargine (LANTUS, SE MGLEE) 100 unit/mL injection 18 Units 05/31/2024 insulin lispro (HumaLOG, ADM ELOG) 100 unit/mL injection 10 Units 05/31/2024 furosemide (LASIX) 10 mg/mL injection 40 mg 05/30/2024 insulin lispro (HumaLOG, ADM ELOG) 100 unit/mL injection 5 Units 05/30/2024 perflutren protein-a (OPTISO N) 3 mL in sodium chloride 0.9% 8 mL syringe 05/30/2024 carvediloL (COREG) tablet 6.25 mg ceFAZolin (ANCEF) 2,000 mg/1 00 mL in dextrose (premix) 2,000 mg 05/29/2024 dextrose (D10W) 10% bolus 250 mL 05/29/20 dextrose oral liquid liquid 15 g 05/29/20 dilTIAZem (CARDIZEM) tablet 30 mg escitalopram (LEXAPRO) tablet 10 mg 05/29 ferrous sulfate delayed rele ase tablet 65 mg of elemental iron 05/29/2024 furosemide (LASIX) tablet 40 mg glucagon injection 1 mg 05/29/2024 HYDROcodone-acetaminophen (N ORCO) 5-325 mg per tablet 1 tablet 05/29/2024 insulin glargine (LANTUS, SE MGLEE) 100 unit/mL injection 14 Units 05/29/2024 insulin lispro (HumaLOG, ADM ELOG) 100 unit/mL injection 0-4 Units 05/29/2024 insulin lispro (HumaLOG, ADM ELOG) 100 unit/mL injection 0-5 Units 05/29/2024 levothyroxine (SYNTHROID) tablet 75 mcg 1 0 05/29/2024 nortriptyline (PAMELOR) capsule 10 mg 1 ondansetron (ZOFRAN) injection 4 mg 1 05/[address] (PROTONIX) e xtended release tablet 40 mg 1 05/29/2024 polyethylene glycol (MIRALAX) packet 17 g 1 05/29/2024 rivaroxaban (XARELTO) tablet 20 mg 2 2023 sacubitriL-valsartan (ENTRES TO) 24-26 mg tablet 1 tablet 1 05/29/2024 Lab Orders Without Results Count Last Ordered D ate First Ordered Date POCT GLUCOSE DEVICE 37 06/08/2024 05/30/20 Diet Count Last Ordered Date First Orde [...] 06/08/2024 documented in this encounter Care Teams Legal Examiner Relationship Specialty Start Date End Date Oswalod Serrano MD [address] [place] [address] PCP - General Family Medicine 04/14/18 documented as of this encounter
--- OUTSIDE RECORDS SUMMARY | 2024-10-07 00:54 | XMS_ITS | Encounter Summary ---
Author Organization [facility] Address [address] [place] [address] Care Team Providers Care Employee Operations Examiner Name Role Phone Jey Klein Primary Care Provider + Encounter Details Date Type Department Care Team (Late st Contact Info) Description 03/07/2017 Orders Only Hospitalists [id number] [address] [place] [id number] [address] Social History Tobacco Use Types Packs/Day Years Used Date Smoking Tobacco: Never Assessed Comments Unknown Sex and Gender Information Value Date Recorded Sex Assigned at Not on file 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 Gender Identity Not on file Sexual Orientation Not on file documented as of this encounter Plan of Treatment Not on file documented as of this encounter Procedures Procedure Name Priority Date/Time Associated Diagnosis Comments GLUCOSE POC Routine 03/07/2017 5:08 PM CDT documented in this encounter Results * Glucose POC (03/07/2017 5:08 PM CDT) Glucose, POC 199 70 - 199 mg/dL [facility] Blood specimen (specimen) 03/07/2017 5:08 PM CDT 03/07/2017 5:08 PM CDT Elly Julian MD POINT OF CARE TEST ORDERABLES Final Result [facility] [id number] [address] [place] [address] documented in this encounter Visit Diagnoses Not on filedocumented in this encounter Care Teams Employee Operations Examiner Relationship Specialty Start Date End Date Jey Klein PA [address] [place] [address] PCP - General 02/23/17 04/13/18 documented as of this encounter
--- OUTSIDE RECORDS SUMMARY | 2024-10-07 00:54 | XMS_ITS | Encounter Summary ---
Author Organization [facility] Address 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 Gender Identity Not on file Sexual Orientation Not on file documented as of this encounter Plan of Treatment Not on file documented as of this encounter Procedures Procedure Name Priority Date/Time Associated Diagnosis Comments GLUCOSE POC Routine 03/07/2017 12:44 PM CDT documented in this encounter Results * Glucose POC (03/07/2017 12:44 PM CDT) Glucose, POC 116 70 - 199 mg/dL [facility] Blood specimen (specimen) 03/07/2017 12:44 PM CDT 03/07/2017 12:44 PM CDT Elly Julian MD POINT OF CARE TEST ORDERABLES Final Result [facility] [id number] [address] Department [place] [address] documented in this encounter Visit Diagnoses Not on filedocumented in this encounter Care Teams Washer Machine Relationship Specialty Start Date End Date Jey Klein PA [address] [place] [id number] PCP - General 02/23/17 04/13/18 documented as of this encounter
--- OUTSIDE RECORDS SUMMARY | 2024-10-07 00:54 | XMS_ITS | Encounter Summary ---
Author Organization [facility] Address [address] [place] [address] Phone Care Team Providers Care Roll Tube Setter Name Role Phone Oswaldo Serrano MD Primary Care Provider [phone] Encounter Details Date Type Department Care Team (Late st Contact Info) Description 05/26/2018 Orders Only [facility] [address] [place] [address] Matias Giraldo MD [address] [address] Social History Tobacco Use Types Packs/Day Years Used Date Smoking Tobacco: Never Assessed Comments Unknown Sex and Gender Information Value Date Recorded Sex Assigned at Not on file 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 Gender Identity Not on file Sexual Orientation Not on file documented as of this encounter Plan of Treatment Not on file documented as of this encounter Procedures Procedure Name Priority Date/Time Associated Diagnosis Comments SCAN - RADIOLOGY/IMAGING 05/26/2018 3:11 PM CDT documented in this encounter Results * SCAN - RADIOLOGY/IMAGING (05/26/2018 3:11 PM CDT) Anatomical Region Laterality Modality Other us Matias Giraldo MD Final R esult documented in this encounter Visit Diagnoses Not on filedocumented in this encounter Care Teams Roll Tube Setter Relationship Specialty Start Date End Date Oswaldo Serrano MD [address] [facility] [place] [address] PCP - General Family Medicine 04/14/18 documented as of this encounter
--- OUTSIDE RECORDS SUMMARY | 2024-10-07 00:54 | XMS_ITS | Encounter Summary ---
Author Organization [facility] Address [address] [place] [address] Phone Care Team Providers Care Animal Care Supervisor Name Role Phone Oswaldo Serrano MD Primary Care Provider [phone] Encounter Details Date Type Department Care Team (Late st Contact Info) Description 04/25/2018 Orders Only [facility] [address] [place] [address] Scanning, Provider Social History Tobacco Use Types Packs/Day Years Used Date Smoking Tobacco: Never Assessed Comments Unknown Sex and Gender Information Value Date Recorded Sex Assigned at Not on file Legal Sex Female 3:51 AM CORRECTION LIEUTENANT Gender Identity Not on file Sexual Orientation Not on file documented as of this encounter Plan of Treatment Not on file documented as of this encounter Procedures Procedure Name Priority Date/Time Associated Diagnosis Comments SCAN - RADIOLOGY/IMAGING 04/25/2018 12:50 PM CDT documented in this encounter Results * SCAN - RADIOLOGY/IMAGING (04/25/2018 12:50 PM CDT) Anatomical Region Laterality Modality Other us Provider Scanning Final Result documented in this encounter Visit Diagnoses Not on filedocumented in this encounter Care Teams Animal Care Supervisor Relationship Specialty Start Date End Date Oswaldo Serrano MD [address] [address] PCP - General Family Medicine 04/14/18 documented as of this encounter
--- OUTSIDE RECORDS SUMMARY | 2024-10-07 00:54 | XMS_ITS | Encounter Summary ---
Author Organization [facility] Address [address] [facility] [address] [place] [address] Care Team Providers Care Burling And Joining Supervisor Name Role Phone Jey Klein Primary Care Provider + Encounter Details Date Type Department Care Team (Late st Contact Info) Description 03/08/2017 Orders Only Hospitalists [id number] [place] [address] Sharon Montoya MD [address] [place] [address] Social History Tobacco Use Types Packs/Day Years Used Date Smoking Tobacco: Never Assessed Comments Unknown Sex and Gender Information Value Date Recorded Sex Assigned at Not on file Legal Sex Female 3:51 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 AUTHOR OF Gender Identity Not on file Sexual Orientation Not on file documented as of this encounter Plan of Treatment Not on file documented as of this encounter Procedures Procedure Name Priority Date/Time Associated Diagnosis Comments BASIC METABOLIC PANEL Routine 03/08/2017 2:40 PM CDT documented in this encounter Results * (ABNORMAL) Basic metabolic panel (03/08/2017 2:40 PM CDT) Sodium 129(L) 135 - 145 mmol/L [facility] Potassium, pl 3.7 3.5 - 5.1 mmol/L [facility] Chloride 90(L) 100 - 114 mmol/L [facility] CO2 27 22 - 32 mmol/L [facility] BUN 16 8 - 24 mg/dL [facility] Glucose 197 70 - 199 mg/dL [facility] Creatinine 0.90 0.60 - 1.30 mg/dL [facility] Calcium 8.4 8.4 - 10.5 mg/dL [facility] Anion gap 16 8 - 16 mmol/L [facility] Blood specimen (specimen) 03/08/2017 2:40 PM CDT 03/08/2017 2:57 PM CDT us Sharon Montoya MD LAB BLOOD ORDERABLES Final Resu lt [facility] [id number] [address] Department [place] [address] documented in this encounter Visit Diagnoses Not on filedocumented in this encounter Care Teams Burling And Joining Supervisor Relationship Specialty Start Date End Date Jey Klein PA [address] [place] [address] PCP - General 02/23/17 04/13/18 documented as of this encounter
--- OUTSIDE RECORDS SUMMARY | 2024-10-07 00:55 | XMS_ITS | Encounter Summary ---
Author Organization [facility] Address [address] [facility] [address] [place] [address] Care Team Providers Care Mobile Home Servicer Name Role Phone Jey Klein Primary Care Provider + Encounter Details Date Type Department Care Team (Late st Contact Info) Description 03/03/2017 Orders Only Hospitalists [address] [address] [place] [address] [address] Social History Tobacco Use Types Packs/Day Years Used Date Smoking Tobacco: Never Assessed Comments Unknown Sex and Gender Information Value Date Recorded Sex Assigned at Not on file 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 Gender Identity Not on file Sexual Orientation Not on file documented as of this encounter Plan of Treatment Not on file documented as of this encounter Procedures Procedure Name Priority Date/Time Associated Diagnosis Comments GLUCOSE POC Routine 03/03/2017 7:38 AM CDT documented in this encounter Results * Glucose POC (03/03/2017 7:38 AM CDT) Glucose, POC 151 70 - 199 mg/dL [facility] Blood specimen (specimen) 03/03/2017 7:38 AM CDT 03/03/2017 7:38 AM CDT Elly Julian MD POINT OF CARE TEST ORDERABLES Final Result [facility] [id number] [address] Department [place] [address] documented in this encounter Visit Diagnoses Not on filedocumented in this encounter Care Teams Mobile Home Servicer Relationship Specialty Start Date End Date Jey Klein PA [address] [place] [address] PCP - General 02/23/17 04/13/18 documented as of this encounter
--- OUTSIDE RECORDS SUMMARY | 2024-10-07 00:55 | XMS_ITS | Encounter Summary ---
Author Organization [facility] Address [address] [facility] [address] [place] [address] Care Team Providers Care Mold Injector Name Role Phone Jey Klein Primary Care Provider + Encounter Details Date Type Department Care Team (Late st Contact Info) Description 03/02/2017 Orders Only Hospitalists [address] [address] [place] [address] [address] Social History Tobacco Use Types Packs/Day Years Used Date Smoking Tobacco: Never Assessed Comments Unknown Sex and Gender Information Value Date Recorded Sex Assigned at Not on file 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 Sex Female 3:51 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 Gender Identity Not on file Sexual Orientation Not on file documented as of this encounter Plan of Treatment Not on file documented as of this encounter Procedures Procedure Name Priority Date/Time Associated Diagnosis Comments GLUCOSE POC Routine 03/02/2017 10:15 PM CDT documented in this encounter Results * (ABNORMAL) Glucose POC (03/02/2017 10:15 PM CDT) Glucose, POC 240(H) 70 - 199 mg/dL [facility] Blood specimen (specimen) 03/02/2017 10:15 PM CDT 03/02/2017 10:15 PM CDT us Elly Julian MD POINT OF CARE TEST ORDERABLES Final Result [facility] [address] [address] Department [place] [address] documented in this encounter Visit Diagnoses Not on filedocumented in this encounter Care Teams Mold Injector Relationship Specialty Start Date End Date Jey Klein PA [address] [place] [id number] PCP - General 02/23/17 04/13/18 documented as of this encounter
--- OUTSIDE RECORDS SUMMARY | 2024-10-07 00:55 | XMS_ITS | Encounter Summary ---
Author Organization [facility] Address [address] [facility] [address] [place] [address] Care Team Providers Care Director Of Materials Management Name Role Phone Jey Klein Primary Care Provider + Encounter Details Date Type Department Care Team (Late st Contact Info) Description 02/28/2017 Orders Only [facility] [address] [facility] [address] [place] [address] [place] [address] [place] [address] Social History Tobacco Use Types Packs/Day Years Used Date Smoking Tobacco: Never Assessed Comments Unknown Sex and Gender Information Value Date Recorded Sex Assigned at Not on file Legal Sex Female 3:51 AM DISBURSING OFFICER Gender Identity Not on file Sexual Orientation Not on file documented as of this encounter Plan of Treatment Not on file documented as of this encounter Procedures Procedure Name Priority Date/Time Associated Diagnosis Comments PROTIME-INR STAT 02/28/2017 5:33 PM CDT documented in this encounter Results * (ABNORMAL) Protime-INR (02/28/2017 5:33 PM CDT) PT 26.9(H) 9.5 - 13.0 sec [facility] INR 2.28(H) 0.90 - 1.20 [facility] Blood specimen (specimen) 02/28/2017 5:33 PM CDT 02/28/2017 8:10 PM CDT us Howard Philippe MD LAB BLOOD [place] [id number] [address] Department [place] [address] documented in this encounter Visit Diagnoses Not on filedocumented in this encounter Care Teams Director Of Materials Management Relationship Specialty [place] [address] [place] [id number] PCP - General 02/23/17 04/13/18 documented as of this encounter
--- OUTSIDE RECORDS SUMMARY | 2024-10-07 00:55 | XMS_ITS | Encounter Summary ---
Author Organization [facility] Address [address] [facility] [address] [place] [address] Care Team Providers Care Chipping Machine Operator Name Role Phone Jey Klein Primary Care Provider + Encounter Details Date Type Department Care Team (Late st Contact Info) Description 03/04/2017 Orders Only Hospitalists [address] [address] [place] [address] [address] Social History Tobacco Use Types Packs/Day Years Used Date Smoking Tobacco: Never Assessed Comments Unknown Sex and Gender Information Value Date Recorded Sex Assigned at Not on file Legal Sex Female 3:51 AM VERIFICATION LEAD Gender Identity Not on file Sexual Orientation Not on file documented as of this encounter Plan of Treatment Not on file documented as of this encounter Procedures Procedure Name Priority Date/Time Associated Diagnosis Comments EGFR Routine 03/04/2017 4:39 AM CDT documented in this encounter Results * eGFR (03/04/2017 4:39 AM CDT) eGFR 81 mL/min/1.7 3 m2 [facility] Comment: Interpretive Data Reference Interval Normal ?>/= 90 mL/min/1.73m2 Mildly decreased* ? 60 - 89 mL/min/1.73m2 Mildly to moderately decreased ?45 - 59 mL/min/1.73m2 Moderately to severely decreased ??30 - 44 mL/min/1.73m2 Severely decreased ?15 - 29 mL/min/1.73m2 Kidney Failure ?< 15 ??mL/min/1.73m2 *Relative to young adult level If -Cambodian multiply value by 1.16. Estimated glomerular filtration [...] was last reviewed 2016. Blood specimen (specimen) 03/04/2017 4:39 AM CDT 03/04/2017 4:50 AM CDT us Elly Julian MD LAB BLOOD ORDERABLE S Final Result Performing Organization Address City/State/[facility] Co de Phone Number [facility] [phone] [address] Department [place] [address] documented in this encounter Visit Diagnoses Not on filedocumented in this encounter Care Teams Chipping Machine Operator Relationship Specialty Start Date End Date Jey Klein PA [address] [place] [address] PCP - General 02/23/17 04/13/18 documented as of this encounter
--- OUTSIDE RECORDS SUMMARY | 2024-10-07 00:55 | XMS_ITS | Encounter Summary ---
Author Organization [facility] Address [address] [facility] [address] [place] [address] Care Team Providers Care Boat Puller Name Role Phone Jey Klein Primary Care Provider + Encounter Details Date Type Department Care Team (Late st Contact Info) Description 03/04/2017 Orders Only Hospitalists [address] [address] [place] [address] [address] Social History Tobacco Use Types Packs/Day Years Used Date Smoking Tobacco: Never Assessed Comments Unknown Sex and Gender Information Value Date Recorded Sex Assigned at Not on file Legal Sex Female 3:51 AM BUSINESS CONTINUITY CONSULTANT Gender Identity Not on file Sexual Orientation Not on file documented as of this encounter Plan of Treatment Not on file documented as of this encounter Procedures Procedure Name Priority Date/Time Associated Diagnosis Comments MAGNESIUM Routine 03/04/2017 4:39 AM CDT documented in this encounter Results * Magnesium (03/04/2017 4:39 AM CDT) Magnesium 1.9 1.8 - 2.6 mg/dL [facility] Blood specimen (specimen) 03/04/2017 4:39 AM CDT 03/04/2017 4:50 AM CDT us Elly Julian MD LAB BLOOD ORDERABLE S Final Result [facility] [address] [address] Department [place] [address] documented in this encounter Visit Diagnoses Not on filedocumented in this encounter Care Teams Boat Puller Relationship Specialty [place] [address] [place] [address] PCP - General 02/23/17 04/13/18 documented as of this encounter
--- OUTSIDE RECORDS SUMMARY | 2024-10-07 00:55 | XMS_ITS | Encounter Summary ---
Author Organization [facility] Address [address] [facility] [address] [place] [address] Care Team Providers Care Women'S Activities Adviser Name Role Phone Jey Klein Primary Care Provider + Encounter Details Date Type Department Care Team (Late st Contact Info) Description 03/02/2017 Orders Only Hospitalists [address] [address] [place] [address] [address] Social History Tobacco Use Types Packs/Day Years Used Date Smoking Tobacco: Never Assessed Comments Unknown Sex and Gender Information Value Date Recorded Sex Assigned at Not on file 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 Sex Female 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 CLASS 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 Gender Identity Not on file Sexual Orientation Not on file documented as of this encounter Plan of Treatment Not on file documented as of this encounter Procedures Procedure Name Priority Date/Time Associated Diagnosis Comments GLUCOSE POC Routine 03/02/2017 3:48 AM CDT documented in this encounter Results * Glucose POC (03/02/2017 3:48 AM CDT) Glucose, POC 88 70 - 199 mg/dL [facility] Glucose comment 1 RN/MD Notified [facility] Blood specimen (specimen) 03/02/2017 3:48 AM CDT 03/02/2017 3:48 AM CDT us Elly Julian MD POINT OF CARE TEST ORDERABLES Final Result Performing Organization Address City/State/[facility] Co de Phone Number [facility] [phone] [address] Department [place] [address] documented in this encounter Visit Diagnoses Not on filedocumented in this encounter Care Teams Women'S Activities Adviser Relationship Specialty Start Date End Date Jey Klein PA [address] [place] [address] PCP - General 02/23/17 04/13/18 documented as of this encounter
--- OUTSIDE RECORDS SUMMARY | 2024-10-07 00:55 | XMS_ITS | Encounter Summary ---
Author Organization [facility] Address [address] [facility] [address] [place] [address] Care Team Providers Care Sr. Director Name Role Phone Jey Klein Primary Care Provider + Encounter Details Date Type Department Care Team (Late st Contact Info) Description 03/06/2017 Orders Only Hospitalists [address] [address] [place] [address] [address] Social History Tobacco Use Types Packs/Day Years Used Date Smoking Tobacco: Never Assessed Comments Unknown Sex and Gender Information Value Date Recorded Sex Assigned at Not on file Legal Sex Female 3:51 AM PULLING UNIT FLOORHAND Gender Identity Not on file Sexual Orientation Not on file documented as of this encounter Plan of Treatment Not on file documented as of this encounter Procedures Procedure Name Priority Date/Time Associated Diagnosis Comments PHOSPHORUS Routine 03/06/2017 4:28 AM CDT documented in this encounter Results * Phosphorus (03/06/2017 4:28 AM CDT) Phosphorus, pl 3.5 2.7 - 4.7 mg/dL [facility] Blood specimen (specimen) 03/06/2017 4:28 AM CDT 03/06/2017 4:48 AM CDT us Elly Julian MD LAB BLOOD ORDERABLE S Final Result [facility] [address] [address] Department [place] [address] documented in this encounter Visit Diagnoses Not on filedocumented in this encounter Care Teams Sr. Director Relationship Specialty Start Date End Date Jey Klein PA [address] [place] [address] PCP - General 02/23/17 04/13/18 documented as of this encounter
--- OUTSIDE RECORDS SUMMARY | 2024-10-07 00:55 | XMS_ITS | Encounter Summary ---
Author Organization [facility] Address [address] [facility] [address] [place] [address] Care Team Providers Care Procurement Technician Name Role Phone Jey Klein Primary Care Provider + Encounter Details Date Type Department Care Team (Late st Contact Info) Description 03/03/2017 Orders Only Hospitalists [address] [address] [place] [address] [address] Social History Tobacco Use Types Packs/Day Years Used Date Smoking Tobacco: Never Assessed Comments Unknown Sex and Gender Information Value Date Recorded Sex Assigned at Not on file Legal Sex Female 3:51 AM U.S. SENATOR Gender Identity Not on file Sexual Orientation Not on file documented as of this encounter Plan of Treatment Not on file documented as of this encounter Procedures Procedure Name Priority Date/Time Associated Diagnosis Comments GLUCOSE POC Routine 03/03/2017 5:57 PM CDT documented in this encounter Results * Glucose POC (03/03/2017 5:57 PM CDT) Glucose, POC 161 70 - 199 mg/dL [facility] Blood specimen (specimen) 03/03/2017 5:57 PM CDT 03/03/2017 5:57 PM CDT Elly Julian MD POINT OF CARE TEST ORDERABLES Final Result [facility] [address] [address] Department [place] [address] documented in this encounter Visit Diagnoses Not on filedocumented in this encounter Care Teams Procurement Technician Relationship Specialty Start Date End Date Jey Klein PA [address] [place] [address] PCP - General 02/23/17 04/13/18 documented as of this encounter
--- OUTSIDE RECORDS SUMMARY | 2024-10-07 00:55 | XMS_ITS | Encounter Summary ---
Author Organization [facility] Address [address] 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 Gender Identity Not on file Sexual Orientation Not on file documented as of this encounter Plan of Treatment Not on file documented as of this encounter Procedures Procedure Name Priority Date/Time Associated Diagnosis Comments GLUCOSE POC Routine 03/06/2017 12:47 PM CDT documented in this encounter Results * Glucose POC (03/06/2017 12:47 PM CDT) Glucose, POC 188 70 - 199 mg/dL [facility] Blood specimen (specimen) 03/06/2017 12:47 PM CDT 03/06/2017 12:47 PM CDT Elly Julian MD POINT OF CARE TEST ORDERABLES Final Result [facility] [address] [address] Department [place] [address] documented in this encounter Visit Diagnoses Not on filedocumented in this encounter Care Teams Vegetable Packer Relationship Specialty Start Date End Date Jey Klein PA [address] [place] [address] PCP - General 02/23/17 04/13/18 documented as of this encounter
--- OUTSIDE RECORDS SUMMARY | 2024-10-07 00:55 | XMS_ITS | Encounter Summary ---
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 Female 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 Gender Identity Not on file Sexual Orientation Not on file documented as of this encounter Plan of Treatment Not on file documented as of this encounter Procedures Procedure Name Priority Date/Time Associated Diagnosis Comments GLUCOSE POC Routine 03/04/2017 8:32 PM CDT documented in this encounter Results * (ABNORMAL) Glucose POC (03/04/2017 8:32 PM CDT) Glucose, POC 221(H) 70 - 199 mg/dL [facility] Blood specimen (specimen) 03/04/2017 8:32 PM CDT 03/04/2017 8:32 PM CDT us Elly Julian MD POINT OF CARE TEST ORDERABLES Final Result [facility] [address] [address] Department [place] [address] documented in this encounter Visit Diagnoses Not on filedocumented in this encounter Care Teams Cotton Weigher Operator Relationship Specialty Start Date End Date Jey Klein PA [address] [place] [address] PCP - General 02/23/17 04/13/18 documented as of this encounter
--- OUTSIDE RECORDS SUMMARY | 2024-10-07 00:55 | XMS_ITS | Encounter Summary ---
Author Organization [facility] Address [address] [facility] [address] [place] [address] Care Team Providers Care Physician Anesthesiologist Name Role Phone Jey Klein Primary Care Provider + Encounter Details Date Type Department Care Team (Late st Contact Info) Description 03/06/2017 Orders Only Hospitalists [address] [address] [place] [address] [address] Social History Tobacco Use Types Packs/Day Years Used Date Smoking Tobacco: Never Assessed Comments Unknown Sex and Gender Information Value Date Recorded Sex Assigned at Not on file 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 Sex Female 3:51 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 Gender Identity Not on file Sexual Orientation Not on file documented as of this encounter Plan of Treatment Not on file documented as of this encounter Procedures Procedure Name Priority Date/Time Associated Diagnosis Comments GLUCOSE POC Routine 03/06/2017 8:52 AM CDT documented in this encounter Results * Glucose POC (03/06/2017 8:52 AM CDT) Glucose, POC 170 70 - 199 mg/dL [facility] Blood specimen (specimen) 03/06/2017 8:52 AM CDT 03/06/2017 8:52 AM CDT Elly Julian MD POINT OF CARE TEST ORDERABLES Final Result [facility] [address] [address] Department [place] [address] documented in this encounter Visit Diagnoses Not on filedocumented in this encounter Care Teams Physician Anesthesiologist Relationship Specialty Start Date End Date Jey Klein PA [address] [place] [address] PCP - General 02/23/17 04/13/18 documented as of this encounter
--- OUTSIDE RECORDS SUMMARY | 2024-10-07 00:55 | XMS_ITS | Encounter Summary ---
Author Organization [facility] Address [address] [facility] [address] [place] [address] Care Team Providers Care Build Automation Engineer Name Role Phone Jey Klein Primary Care Provider + Encounter Details Date Type Department Care Team (Late st Contact Info) Description 03/03/2017 Orders Only Hospitalists [address] [address] [place] [address] [address] Social History Tobacco Use Types Packs/Day Years Used Date Smoking Tobacco: Never Assessed Comments Unknown Sex and Gender Information Value Date Recorded Sex Assigned at Not on file Legal Sex Female 3:51 AM COMMUNITY RECREATION PROGRAMMER Gender Identity Not on file Sexual Orientation Not on file documented as of this encounter Plan of Treatment Not on file documented as of this encounter Procedures Procedure Name Priority Date/Time Associated Diagnosis Comments GLUCOSE POC Routine 03/03/2017 4:57 AM CDT documented in this encounter Results * Glucose POC (03/03/2017 4:57 AM CDT) Glucose, POC 181 70 - 199 mg/dL [facility] Blood specimen (specimen) 03/03/2017 4:57 AM CDT 03/03/2017 4:57 AM CDT Elly Julian MD POINT OF CARE TEST ORDERABLES Final Result [facility] [address] [address] Department [place] [address] documented in this encounter Visit Diagnoses Not on filedocumented in this encounter Care Teams Build Automation Engineer Relationship Specialty Start Date End Date Jey Klein PA [address] [place] [address] PCP - General 02/23/17 04/13/18 documented as of this encounter
--- OUTSIDE RECORDS SUMMARY | 2024-10-07 00:55 | XMS_ITS | Encounter Summary ---
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 Sex Female 3:51 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 OPERATOR Gender Identity Not on file Sexual Orientation Not on file documented as of this encounter Plan of Treatment Not on file documented as of this encounter Procedures Procedure Name Priority Date/Time Associated Diagnosis Comments GLUCOSE POC Routine 03/05/2017 10:02 PM CDT documented in this encounter Results * (ABNORMAL) Glucose POC (03/05/2017 10:02 PM CDT) Glucose, POC 251(H) 70 - 199 mg/dL [facility] Blood specimen (specimen) 03/05/2017 10:02 PM CDT 03/05/2017 10:02 PM CDT us Elly Julian MD POINT OF CARE TEST ORDERABLES Final Result [facility] [id number] [address] Landa Department [place] [address] documented in this encounter Visit Diagnoses Not on filedocumented in this encounter Care Teams Coverage Analyst Relationship Specialty Start Date End Date Jey Klein PA [address] [place] [address] PCP - General 02/23/17 04/13/18 documented as of this encounter
--- OUTSIDE RECORDS SUMMARY | 2024-10-07 00:55 | XMS_ITS | Encounter Summary ---
Author Organization [facility] Address [address] [facility] [address] [place] [address] Care Team Providers Care Content Management Consultant Name Role Phone Jey Klein Primary Care Provider + Encounter Details Date Type Department Care Team (Late st Contact Info) Description 03/01/2017 Orders Only Hospitalists [address] [address] Jesus Mcgee MD [facility] [place] [address] Social History Tobacco Use Types Packs/Day Years Used Date Smoking Tobacco: Never Assessed Comments Unknown Sex and Gender Information Value Date Recorded Sex Assigned at Not on file 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 Gender Identity Not on file Sexual Orientation Not on file documented as of this encounter Plan of Treatment Not on file documented as of this encounter Procedures Procedure Name Priority Date/Time Associated Diagnosis Comments GLUCOSE POC Routine 03/01/2017 7:32 AM CDT documented in this encounter Results * (ABNORMAL) Glucose POC (03/01/2017 7:32 AM CDT) Glucose, POC 295(H) 70 - 199 mg/dL [facility] Blood specimen (specimen) 03/01/2017 7:32 AM CDT 03/01/2017 7:32 AM CDT us Jesus Mcgee MD POINT OF CARE TEST ORDERABLE S Final Result [facility] [id number] Department [place] [address] documented in this encounter Visit Diagnoses Not on filedocumented in this encounter Care Teams Content Management Consultant Relationship Specialty Start Date End Date Jey Klein PA [address] [place] [address] PCP - General 02/23/17 04/13/18 documented as of this encounter
--- OUTSIDE RECORDS SUMMARY | 2024-10-07 00:55 | XMS_ITS | Encounter Summary ---
Author Organization [facility] Medical [facility] Address [address] [facility] [address] [place] [address] Care Team Providers Care Business Banker Name Role Phone Jey Klein Primary Care Provider + Encounter Details Date Type Department Care Team (Late st Contact Info) Description 03/05/2017 Orders Only Hospitalists [address] [address] [place] [address] [address] Social History Tobacco Use Types Packs/Day Years Used Date Smoking Tobacco: Never Assessed Comments Unknown Sex and Gender Information Value Date Recorded Sex Assigned at Not on file 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 Gender Identity Not on file Sexual Orientation Not on file documented as of this encounter Plan of Treatment Not on file documented as of this encounter Procedures Procedure Name Priority Date/Time Associated Diagnosis Comments GLUCOSE POC Routine 03/05/2017 12:25 PM CDT documented in this encounter Results * Glucose POC (03/05/2017 12:25 PM CDT) Glucose, POC 191 70 - 199 mg/dL [facility] Blood specimen (specimen) 03/05/2017 12:25 PM CDT 03/05/2017 12:25 PM CDT Elly Julian MD POINT OF CARE TEST ORDERABLES Final Result [facility] [address] [address]anda Department [place] [address] documented in this encounter Visit Diagnoses Not on filedocumented in this encounter Care Teams Business Banker Relationship Specialty Start Date End Date Jey Klein PA [address] [place] [address] PCP - General 02/23/17 04/13/18 documented as of this encounter
--- OUTSIDE RECORDS SUMMARY | 2024-10-07 00:55 | XMS_ITS | Encounter Summary ---
Author Organization [facility] Address [address] [facility] [address] [place] [address] Care Team Providers Care A R Specialist Name Role Phone Jey Klein Primary Care Provider + Encounter Details Date Type Department Care Team (Late st Contact Info) Description 02/28/2017 Orders Only [facility] [place] [address] [facility] [address] [place] [address] [place] [address] [place] [address] Social History Tobacco Use Types Packs/Day Years Used Date Smoking Tobacco: Never Assessed Comments Unknown Sex and Gender Information Value Date Recorded Sex Assigned at Not on file 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 Sex Female 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 Gender Identity Not on file Sexual Orientation Not on file documented as of this encounter Plan of Treatment Not on file documented as of this encounter Procedures Procedure Name Priority Date/Time Associated Diagnosis Comments URINALYSIS AND REFLEX TO MICROSCOPIC AND CULTURE STAT 02/28/2017 6:30 PM CDT documented in this encounter Results * (ABNORMAL) Urinalysis reflex to microscopic and culture (02/28/2017 6:30 PM CDT) Color, ur Yellow [facility] Clarity, ur Clear [facility] Specific gravity, ur 1.008 1.001 - 1.033 [facility] pH, ur 5.0 5.0 - 8.0 [facility] Protein, ur ql Negative Negative [facility] Glucose, ur ql 3+(A) Negative [facility] Ketones, ur Negative Negative [facility] Bilirubin, ur Negative Negative [facility] Blood, ur Negative Negative [facility] Urobilinogen, ur <2.0 <2.0 [facility] Nitrites, ur Negative Negative [facility] Leukocyte esterase, ur 1+(A) Negative [facility] Urine/Blood 02/28/2017 6:30 PM CDT 02/28/2017 6:38 PM CDT us Howard Philippe MD LAB MICROBIOLOGY - GENE RAL ORDERABLES Final Result [facility] [id number] [address] Department [place] [address] documented in this encounter Visit Diagnoses Not on filedocumented in this encounter Care Teams A R Specialist Relationship Specialty Start Date End Date Jey Klein PA [address] [place] [id number] PCP - General 02/23/17 04/13/18 documented as of this encounter
--- OUTSIDE RECORDS SUMMARY | 2024-10-07 00:55 | XMS_ITS | Encounter Summary ---
Author Organization [facility] Medical [facility] Address [address] [facility] [address] [place] [address] Care Team Providers Care Regulatory Scientist Name Role Phone Jey Klein Primary Care Provider + Encounter Details Date Type Department Care Team (Late st Contact Info) Description 03/02/2017 Orders Only Hospitalists [address] [address] [place] [address] [address] Social History Tobacco Use Types Packs/Day Years Used Date Smoking Tobacco: Never Assessed Comments Unknown Sex and Gender Information Value Date Recorded Sex Assigned at Not on file 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 Gender Identity Not on file Sexual Orientation Not on file documented as of this encounter Plan of Treatment Not on file documented as of this encounter Procedures Procedure Name Priority Date/Time Associated Diagnosis Comments PHOSPHORUS Routine 03/02/2017 5:25 AM CDT documented in this encounter Results * Phosphorus (03/02/2017 5:25 AM CDT) Phosphorus, pl 3.6 2.7 - 4.7 mg/dL [facility] Blood specimen (specimen) 03/02/2017 5:25 AM CDT 03/02/2017 5:52 AM CDT us Elly Julian MD LAB BLOOD ORDERABLE S Final Result [facility] [id number] [address] Department [place] [address] documented in this encounter Visit Diagnoses Not on filedocumented in this encounter Care Teams Regulatory Scientist Relationship Specialty Start Date End Date Jey Klein PA [address] [place] [address] PCP - General 02/23/17 04/13/18 documented as of this encounter
--- OUTSIDE RECORDS SUMMARY | 2024-10-07 00:55 | XMS_ITS | Encounter Summary ---
Author Organization [facility] Medical [facility] Address [address] [facility] [address] [place] [address] Care Team Providers Care Courtroom Clerk Name Role Phone Jey Klein Primary Care Provider + Encounter Details Date Type Department Care Team (Late st Contact Info) Description 02/28/2017 Orders Only [facility] [place] [address] [facility] [address] [place] [address] [place] [address] [place] [address] Social History Tobacco Use Types Packs/Day Years Used Date Smoking Tobacco: Never Assessed Comments Unknown Sex and Gender Information Value Date Recorded Sex Assigned at Not on file 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 Gender Identity Not on file Sexual Orientation Not on file documented as of this encounter Plan of Treatment Not on file documented as of this encounter Procedures Procedure Name Priority Date/Time Associated Diagnosis Comments AMMONIA STAT 02/28/2017 5:33 PM CDT documented in this encounter Results * Ammonia (02/28/2017 5:33 PM CDT) Ammonia <10 5 - 40 mcmol/L [facility] Blood specimen (specimen) 02/28/2017 5:33 PM CDT 02/28/2017 5:44 PM CDT us Howard Philippe MD LAB BLOOD ORDERABLES Fi nal Result [facility] [address] [address] Department [place] [address] documented in this encounter Visit Diagnoses Not on filedocumented in this encounter Care Teams Courtroom Clerk Relationship Specialty [place] [address] [place] [phone] PCP - General 02/23/17 04/13/18 documented as of this encounter
--- OUTSIDE RECORDS SUMMARY | 2024-10-07 00:55 | XMS_ITS | Encounter Summary ---
Author Organization [facility] Medical Group Address [address] [facility] [address] [place] [address] Care Team Providers Care Corporate Relations Manager Name Role Phone Jey Klein Primary Care Provider + Encounter Details Date Type Department Care Team (Late st Contact Info) Description 03/04/2017 Orders Only Hospitalists [address] [address] [place] [address] [address] Social History Tobacco Use Types Packs/Day Years Used Date Smoking Tobacco: Never Assessed Comments Unknown Sex and Gender Information Value Date Recorded Sex Assigned at Not on file 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 Gender Identity Not on file Sexual Orientation Not on file documented as of this encounter Plan of Treatment Not on file documented as of this encounter Procedures Procedure Name Priority Date/Time Associated Diagnosis Comments PHOSPHORUS Routine 03/04/2017 4:39 AM CDT documented in this encounter Results * Phosphorus (03/04/2017 4:39 AM CDT) Phosphorus, pl 3.5 2.7 - 4.7 mg/dL [facility] Blood specimen (specimen) 03/04/2017 4:39 AM CDT 03/04/2017 4:50 AM CDT us Elly Julian MD LAB BLOOD ORDERABLE S Final Result [facility] [id number] [address] Department [place] [address] documented in this encounter Visit Diagnoses Not on filedocumented in this encounter Care Teams Corporate Relations Manager Relationship Specialty Start Date End Date Jey Klein PA [address] [place] [address] PCP - General 02/23/17 04/13/18 documented as of this encounter
--- OUTSIDE RECORDS SUMMARY | 2024-10-07 00:55 | XMS_ITS | Encounter Summary ---
Author Organization [facility] Medical [facility] Address [address] [facility] [address] [place] [address] Care Team Providers Care Puppy Sitter Name Role Phone Jey Klein Primary Care Provider + Encounter Details Date Type Department Care Team (Late st Contact Info) Description 03/01/2017 Orders Only Hospitalists [address] [address] Jesus Mcgee MD [facility] [place] [address] Social History Tobacco Use Types Packs/Day Years Used Date Smoking Tobacco: Never Assessed Comments Unknown Sex and Gender Information Value Date Recorded Sex Assigned at Not on file 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 Gender Identity Not on file Sexual Orientation Not on file documented as of this encounter Plan of Treatment Not on file documented as of this encounter Procedures Procedure Name Priority Date/Time Associated Diagnosis Comments GLUCOSE POC Routine 03/01/2017 3:40 AM CDT documented in this encounter Results * (ABNORMAL) Glucose POC (03/01/2017 3:40 AM CDT) Glucose, POC 363(H) 70 - 199 mg/dL [facility] Blood specimen (specimen) 03/01/2017 3:40 AM CDT 03/01/2017 3:40 AM CDT us Jesus Mcgee MD POINT OF CARE TEST ORDERABLE S Final Result [facility] [address] [address] Department [place] [address] documented in this encounter Visit Diagnoses Not on filedocumented in this encounter Care Teams Puppy Sitter Relationship Specialty Start Date End Date Jey Klein PA [address] [place] [address] PCP - General 02/23/17 04/13/18 documented as of this encounter
--- OUTSIDE RECORDS SUMMARY | 2024-10-07 00:55 | XMS_ITS | Encounter Summary ---
Author Organization 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 Gender Identity Not on file Sexual Orientation Not on file documented as of this encounter Plan of Treatment Not on file documented as of this encounter Procedures Procedure Name Priority Date/Time Associated Diagnosis Comments GLUCOSE POC Routine 03/03/2017 12:13 PM CDT documented in this encounter Results * Glucose POC (03/03/2017 12:13 PM CDT) Glucose, POC 122 70 - 199 mg/dL [facility] Blood specimen (specimen) 03/03/2017 12:13 PM CDT 03/03/2017 12:13 PM CDT Elly Julian MD POINT OF CARE TEST ORDERABLES Final Result [facility] [id number] [address] Department [place] [address] documented in this encounter Visit Diagnoses Not on filedocumented in this encounter Care Teams Life Support Technician Relationship Specialty Start Date End Date Jey Klein PA [address] [place] [address] PCP - General 02/23/17 04/13/18 documented as of this encounter
--- OUTSIDE RECORDS SUMMARY | 2024-10-07 00:55 | XMS_ITS | Encounter Summary ---
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 Gender Identity Not on file Sexual Orientation Not on file documented as of this encounter Plan of Treatment Not on file documented as of this encounter Procedures Procedure Name Priority Date/Time Associated Diagnosis Comments GLUCOSE POC Routine 03/06/2017 4:01 AM CDT documented in this encounter Results * Glucose POC (03/06/2017 4:01 AM CDT) Glucose, POC 75 70 - 199 mg/dL [facility] Blood specimen (specimen) 03/06/2017 4:01 AM CDT 03/06/2017 4:01 AM CDT Elly Julian MD POINT OF CARE TEST ORDERABLES Final Result [facility] [id number] [address]anda Department [place] [address] documented in this encounter Visit Diagnoses Not on filedocumented in this encounter Care Teams Router Setter Relationship Specialty Start Date End Date Jey Klein PA [address] [place] [address] PCP - General 02/23/17 04/13/18 documented as of this encounter
--- OUTSIDE RECORDS SUMMARY | 2024-10-07 00:55 | XMS_ITS | Encounter Summary ---
Author Organization [facility] Medical Group Address [address] [facility] [address] [place] [address] Care Team Providers Care Windows Desktop Support Name Role Phone Jey Klein Primary Care Provider + Encounter Details Date Type Department Care Team (Late st Contact Info) Description 02/28/2017 Orders Only [facility] [address] [facility] [address] [place] [address] [place] [address] [place] [address] Social History Tobacco Use Types Packs/Day Years Used Date Smoking Tobacco: Never Assessed Comments Unknown Sex and Gender Information Value Date Recorded Sex Assigned at Not on file 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 Gender Identity Not on file Sexual Orientation Not on file documented as of this encounter Plan of Treatment Not on file documented as of this encounter Procedures Procedure Name Priority Date/Time Associated Diagnosis Comments GLUCOSE POC Routine 02/28/2017 9:26 PM CDT documented in this encounter Results * (ABNORMAL) Glucose POC (02/28/2017 9:26 PM CDT) Glucose, POC 289(H) 70 - 199 mg/dL [facility] Blood specimen (specimen) 02/28/2017 9:26 PM CDT 02/28/2017 9:26 PM CDT us Howard Philippe MD POINT OF CARE TEST MAGDALENO MORELIABERKLEY Final Result [facility] [id number] [address] [place] [address] documented in this encounter Visit Diagnoses Not on filedocumented in this encounter Care Teams Windows Desktop Support Relationship Specialty Start Date End Date Jey Klein PA [address] [place] [address] PCP - General 02/23/17 04/13/18 documented as of this encounter
--- OUTSIDE RECORDS SUMMARY | 2024-10-07 00:55 | XMS_ITS | Encounter Summary ---
Author Organization [facility] Medical [facility] Address [address] [facility] [address] [place] [address] Care Team Providers Care Medical Record Librarian Name Role Phone Jey Klein Primary Care Provider + Encounter Details Date Type Department Care Team (Late st Contact Info) Description 02/28/2017 Orders Only [facility] Pall[place] [address] [facility][1] [address] [place] [address] [place] [address] [place] [address] Social History Tobacco Use Types Packs/Day Years Used Date Smoking Tobacco: Never Assessed Comments Unknown Sex and Gender Information Value Date Recorded Sex Assigned at Not on file 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 Gender Identity Not on file Sexual Orientation Not on file documented as of this encounter Plan of Treatment Not on file documented as of this encounter Procedures Procedure Name Priority Date/Time Associated Diagnosis Comments DIFFERENTIAL AUTO STAT 02/28/2017 5:3 3 PM CDT documented in this encounter Results * Differential, auto (02/28/2017 5:33 PM CDT) Neutrophil pct 72.5 % [facility] Imm gran pct 0.6 % [facility] Lymphocyte pct 14.2 % [facility] Monocyte pct 11.6 % [facility] Eosinophil pct 0.0 % [facility] Basophil pct 0.4 % [facility] Neutrophil abs 5.02 1.70 - 6.50 K/cumm [facility] Imm gran abs 0.04 0.00 - 0.10 K/cumm [facility] Lymphocyte abs 0.98 0.80 - 3.30 K/cumm [facility] Monocyte abs 0.80 0.20 - 0.80 K/cumm [facility] Eosinophil abs 0.05 0.00 - 0.50 K/cumm [facility] Basophil abs 0.03 0.00 - 0.10 K/cumm [facility] Blood specimen (specimen) 02/28/2017 5:33 PM CDT 02/28/2017 5:44 PM CDT us Howard Philippe MD LAB BLOOD ORDERABLES nal Result Performing Organization Address City/State/[facility] Co de Phone Number [facility] CAR [phone] [address]anda Department [place] [address] documented in this encounter Visit Diagnoses Not on filedocumented in this encounter Care Teams Medical Record Librarian Relationship Specialty Start Date End Date Jey Klein PA [address] [place] [address] PCP - General 02/23/17 04/13/18 documented as of this encounter
--- OUTSIDE RECORDS SUMMARY | 2024-10-07 00:55 | XMS_ITS | Encounter Summary ---
Author Organization [facility] Medical [facility] Address [address] [facility] [address] [place] [address] Care Team Providers Care Window Treatment Installer Name Role Phone Jey Klein Primary Care Provider + Encounter Details Date Type Department Care Team (Late st Contact Info) Description 03/06/2017 Orders Only Hospitalists [address] [address] [place] [address] [address] Social History Tobacco Use Types Packs/Day Years Used Date Smoking Tobacco: Never Assessed Comments Unknown Sex and Gender Information Value Date Recorded Sex Assigned at Not on file 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 Gender Identity Not on file Sexual Orientation Not on file documented as of this encounter Plan of Treatment Not on file documented as of this encounter Procedures Procedure Name Priority Date/Time Associated Diagnosis Comments GLUCOSE POC Routine 03/06/2017 5:23 PM CDT documented in this encounter Results * (ABNORMAL) Glucose POC (03/06/2017 5:23 PM CDT) Glucose, POC 218(H) 70 - 199 mg/dL [facility] Blood specimen (specimen) 03/06/2017 5:23 PM CDT 03/06/2017 5:23 PM CDT us Elly Julian MD POINT OF CARE TEST ORDERABLES Final Result [facility] [id number] [address] Landa Department [place] [address] documented in this encounter Visit Diagnoses Not on filedocumented in this encounter Care Teams Window Treatment Installer Relationship Specialty Start Date End Date Jey Klein PA [address] [place] [id number] PCP - General 02/23/17 04/13/18 documented as of this encounter
--- OUTSIDE RECORDS SUMMARY | 2024-10-07 00:55 | XMS_ITS | Encounter Summary ---
Author Organization [facility] Medical Group Address [address] [facility] [address] [place] [address] Care Team Providers Care Aircraft Riveter Name Role Phone Jey Klein Primary Care Provider + Encounter Details Date Type Department Care Team (Late st Contact Info) Description 02/28/2017 Orders Only [facility] [place] [address] [facility][[address]] [address] [place] [address] [place] [address] [place] [address] Social History Tobacco Use Types Packs/Day Years Used Date Smoking Tobacco: Never Assessed Comments Unknown Sex and Gender Information Value Date Recorded Sex Assigned at Not on file 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 0.00 - 0.14 ng/mL Indeterminate: ?0.15 - 0.50 ng/mL [place] / Cardiac Muscle Damage: ? >0.50 ng/mL Current interpretive data was last reviewed 2016 Blood specimen (specimen) 02/28/2017 5:33 PM CDT 02/28/2017 5:44 PM CDT us Howard Philippe MD LAB BLOOD ORDERABLES Fi nal Result Performing Organization Address City/State/[facility] Co de Phone Number [facility] [phone] [address]anda Department [place] [address] documented in this encounter Visit Diagnoses Not on filedocumented in this encounter Care Teams Aircraft Riveter Relationship Specialty Start Date End Date Jey Klein PA [address] [place] [address] PCP - General 02/23/17 04/13/18 documented as of this encounter
--- OUTSIDE RECORDS SUMMARY | 2024-10-07 00:55 | XMS_ITS | Encounter Summary ---
Author Organization [facility] Medical Group Address [address] [place] [address] Care Team Providers Care Proced Tech Name Role Phone Jey Klein Primary Care Provider + Encounter Details Date Type Department Care Team (Late st Contact Info) Description 03/06/2017 Orders Only Hospitalists [address] [address] [place] [address] [address] Social History Tobacco Use Types Packs/Day Years Used Date Smoking Tobacco: Never Assessed Comments Unknown Sex and Gender Information Value Date Recorded Sex Assigned at Not on file 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 Sex Female 3:51 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 Gender Identity Not on file Sexual Orientation Not on file documented as of this encounter Plan of Treatment Not on file documented as of this encounter Procedures Procedure Name Priority Date/Time Associated Diagnosis Comments GLUCOSE POC Routine 03/06/2017 7:28 AM CDT documented in this encounter Results * (ABNORMAL) Glucose POC (03/06/2017 7:28 AM CDT) Glucose, POC 69(L) 70 - 199 mg/dL [facility] Blood specimen (specimen) 03/06/2017 7:28 AM CDT 03/06/2017 7:28 AM CDT us Elly Julian MD POINT OF CARE TEST ORDERABLES Final Result [facility] [id number] [address] Department [place] [address] documented in this encounter Visit Diagnoses Not on filedocumented in this encounter Care Teams Proced Tech Relationship Specialty Start Date End Date Jey Klein PA [address] [place] [address] PCP - General 02/23/17 04/13/18 documented as of this encounter
--- OUTSIDE RECORDS SUMMARY | 2024-10-07 00:55 | XMS_ITS | Encounter Summary ---
Author Organization [facility] Medical Group Address [address] [facility] [address] [place] [address] Care Team Providers Care Interventional Nurse Name Role Phone Jey Klein Primary Care Provider + Encounter Details Date Type Department Care Team (Late st Contact Info) Description 03/01/2017 Orders Only Hospitalists [address] [address] Jeuss Mcgee MD [facility] [place] [address] Social History Tobacco Use Types Packs/Day Years Used Date Smoking Tobacco: Never Assessed Comments Unknown Sex and Gender Information Value Date Recorded Sex Assigned at Not on file 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 Gender Identity Not on file Sexual Orientation Not on file documented as of this encounter Plan of Treatment Not on file documented as of this encounter Procedures Procedure Name Priority Date/Time Associated Diagnosis Comments GLUCOSE POC Routine 03/01/2017 5:43 PM CDT documented in this encounter Results * (ABNORMAL) Glucose POC (03/01/2017 5:43 PM CDT) Glucose, POC 268(H) 70 - 199 mg/dL [facility] Blood specimen (specimen) 03/01/2017 5:43 PM CDT 03/01/2017 5:43 PM CDT us Jesus Mcgee MD POINT OF CARE TEST ORDERABLE S Final Result [facility] [id number] [address]anda Department [place] [address] documented in this encounter Visit Diagnoses Not on filedocumented in this encounter Care Teams Interventional Nurse Relationship Specialty Start Date End Date Jey Klein PA [address] [place] [address] PCP - General 02/23/17 04/13/18 documented as of this encounter
--- OUTSIDE RECORDS SUMMARY | 2024-10-07 00:55 | XMS_ITS | Encounter Summary ---
Author Organization [facility] Medical [facility] Address [address] [facility] [address] [place] [address] Care Team Providers Care Instrument Room Technician Name Role Phone Jey Klein Primary Care Provider + Encounter Details Date Type Department Care Team (Late st Contact Info) Description 02/28/2017 Orders Only [facility] Care [address] [facility] [address] [place] [address] [place] [address] [place] [address] Social History Tobacco Use Types Packs/Day Years Used Date Smoking Tobacco: Never Assessed Comments Unknown Sex and Gender Information Value Date Recorded Sex Assigned at Not on file 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 Gender Identity Not on file Sexual Orientation Not on file documented as of this encounter Plan of Treatment Not on file documented as of this encounter Procedures Procedure Name Priority Date/Time Associated Diagnosis Comments CBC WITH AUTO DIFFERENTIAL STAT 02/28/2017 5:33 PM CDT documented in this encounter Results * (ABNORMAL) CBC with auto differential (02/28/2017 5:33 PM CDT) WBC 6.92 3.80 - 9.90 K/cumm [facility] RBC 3.54(L) 3.90 - 5.20 M/cumm [facility] Hgb 9.0(L) 11.9 - 15.5 g/dL [facility] Hct 30.0(L) 35.6 - 45.5 % [facility] MCV 84.7 81.3 - 96.4 fL [facility] MCH 25.4(L) 27.1 - 33.3 pg [facility] MCHC 30.0(L) 32.3 - 35.7 g/dL [facility] RDW CV 17.8(H) 11.1 - 14.9 % [facility] RDW SD 54.1(H) 35.7 - 48.1 fL [facility] Plt 438(H) 150 - 400 K/cumm [facility] MPV 9.2 9.1 - 12.3 fL [facility] NRBC 0.0 0.0 - 0.2 % [facility] NRBC abs 0.00 0.00 - 0.01 K/cumm [facility] Blood specimen (specimen) 02/28/2017 5:33 PM CDT 02/28/2017 5:44 PM CDT us Howard Philippe MD LAB BLOOD ORDERABLES Fi nal Result [facility] [id number] [address]anda Department [place] [address] documented in this encounter Visit Diagnoses Not on filedocumented in this encounter Care Teams Instrument Room Technician Relationship Specialty Start Date End Date Jey Klein PA [address] [place] [address] PCP - General 02/23/17 04/13/18 documented as of this encounter
--- OUTSIDE RECORDS SUMMARY | 2024-10-07 00:55 | XMS_ITS | Encounter Summary ---
Author Organization [facility] Medical Group Address [address] [facility] [address] [place] [address] Care Team Providers Care Foreign Exchange Student Coordinator Name Role Phone Jey Klein Primary Care Provider + Encounter Details Date Type Department Care Team (Late st Contact Info) Description 03/01/2017 Orders Only Hospitalists [address] [address] Jesus Mcgee MD [facility] [place] [address] Social History Tobacco Use Types Packs/Day Years Used Date Smoking Tobacco: Never Assessed Comments Unknown Sex and Gender Information Value Date Recorded Sex Assigned at Not on file 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 Gender Identity Not on file Sexual Orientation Not on file documented as of this encounter Plan of Treatment Not on file documented as of this encounter Procedures Procedure Name Priority Date/Time Associated Diagnosis Comments GLUCOSE POC Routine 03/01/2017 12:42 PM CDT documented in this encounter Results * (ABNORMAL) Glucose POC (03/01/2017 12:42 PM CDT) Glucose, POC 379(H) 70 - 199 mg/dL [facility] Blood specimen (specimen) 03/01/2017 12:42 PM CDT 03/01/2017 12:42 PM CDT us Jesus Mcgee MD POINT OF CARE TEST ORDERABLE S Final Result [facility] [id number] [address] Department [place] [address] documented in this encounter Visit Diagnoses Not on filedocumented in this encounter Care Teams Foreign Exchange Student Coordinator Relationship Specialty Start Date End Date Jey Klein PA [address] [place] [address] PCP - General 02/23/17 04/13/18 documented as of this encounter
--- OUTSIDE RECORDS SUMMARY | 2024-10-07 00:55 | XMS_ITS | Encounter Summary ---
Author Organization [facility] Medical Group Address [address] [facility] [address] [place] [address] Care Team Providers Care Reimbursement Spec Name Role Phone Jey Klein Primary Care Provider + Encounter Details Date Type Department Care Team (Late st Contact Info) Description 02/28/2017 Orders Only [facility] Palliative Care [address] [facility] [address] [place] [address] [place] [address] [place] [address] Social History Tobacco Use Types Packs/Day Years Used Date Smoking Tobacco: Never Assessed Comments Unknown Sex and Gender Information Value Date Recorded Sex Assigned at Not on file 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 60 - 89 mL/min/1.73m2 Mildly to moderately decreased ?45 - 59 mL/min/1.73m2 Moderately to severely decreased ??30 - 44 mL/min/1.73m2 Severely decreased ?15 - 29 mL/min/1.73m2 Kidney Failure ?< 15 ??mL/min/1.73m2 *Relative to young adult level If -[place] multiply value by 1.16. Estimated glomerular filtration [...] was last reviewed 2016. Blood specimen (specimen) 02/28/2017 5:33 PM CDT 02/28/2017 5:46 PM CDT us Howard Philippe MD LAB BLOOD ORDERABLES Fi nal Result Performing Organization Address City/State/[facility] Co de Phone Number [facility] [phone] [address] Department [place] [address] documented in this encounter Visit Diagnoses Not on filedocumented in this encounter Care Teams Reimbursement Spec Relationship Specialty Start Date End Date Jey Klein PA [address] [place] [address] PCP - General 02/23/17 04/13/18 documented as of this encounter
--- OUTSIDE RECORDS SUMMARY | 2024-10-07 00:55 | XMS_ITS | Encounter Summary ---
Author Organization [facility] Medical Group Address [address] [facility] [address] [place] [address] Care Team Providers Care Stereoptic Projection Topographer Name Role Phone Jey Klein Primary Care Provider + Encounter Details Date Type Department Care Team (Late st Contact Info) Description 03/04/2017 Orders Only Hospitalists [address] [address] [place] [address] [address] Social History Tobacco Use Types Packs/Day Years Used Date Smoking Tobacco: Never Assessed Comments Unknown Sex and Gender Information Value Date Recorded Sex Assigned at Not on file 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 Gender Identity Not on file Sexual Orientation Not on file documented as of this encounter Plan of Treatment Not on file documented as of this encounter Procedures Procedure Name Priority Date/Time Associated Diagnosis Comments GLUCOSE POC Routine 03/04/2017 3:57 AM CDT documented in this encounter Results * Glucose POC (03/04/2017 3:57 AM CDT) Glucose, POC 147 70 - 199 mg/dL [facility] Blood specimen (specimen) 03/04/2017 3:57 AM CDT 03/04/2017 3:57 AM CDT Elly Julian MD POINT OF CARE TEST ORDERABLES Final Result [facility] [id number] [address] Department [place] [address] documented in this encounter Visit Diagnoses Not on filedocumented in this encounter Care Teams Stereoptic Projection Topographer Relationship Specialty Start Date End Date Jey Klein PA [address] [place] [address] PCP - General 02/23/17 04/13/18 documented as of this encounter
--- OUTSIDE RECORDS SUMMARY | 2024-10-07 00:55 | XMS_ITS | Encounter Summary ---
Author Organization [facility] Medical Group Address [address] [facility] [address] [place] [address] Care Team Providers Care Hemodialysis Patient Care Specialist Name Role Phone Jey Klein Primary Care Provider + Encounter Details Date Type Department Care Team (Late st Contact Info) Description 03/05/2017 Orders Only Hospitalists [address] [address] [place] [address] [address] Social History Tobacco Use Types Packs/Day Years Used Date Smoking Tobacco: Never Assessed Comments Unknown Sex and Gender Information Value Date Recorded Sex Assigned at Not on file 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 Gender Identity Not on file Sexual Orientation Not on file documented as of this encounter Plan of Treatment Not on file documented as of this encounter Procedures Procedure Name Priority Date/Time Associated Diagnosis Comments GLUCOSE POC Routine 03/05/2017 3:49 AM CDT documented in this encounter Results * Glucose POC (03/05/2017 3:49 AM CDT) Glucose, POC 196 70 - 199 mg/dL [facility] Blood specimen (specimen) 03/05/2017 3:49 AM CDT 03/05/2017 3:49 AM CDT Elly Juilan MD POINT OF CARE TEST ORDERABLES Final Result [facility] [address] [address] Department [place] [address] documented in this encounter Visit Diagnoses Not on filedocumented in this encounter Care Teams Hemodialysis Patient Care Specialist Relationship Specialty Start Date End Date Jey Klein PA [address] [place] [address] PCP - General 02/23/17 04/13/18 documented as of this encounter
--- OUTSIDE RECORDS SUMMARY | 2024-10-07 00:55 | XMS_ITS | Encounter Summary ---
Author Organization [facility] Medical Group Address [address] [facility] [address] [place] [address] Care Team Providers Care Carpet Cleaning Technician Name Role Phone Jey Klein Primary Care Provider + Encounter Details Date Type Department Care Team (Late st Contact Info) Description 02/28/2017 Orders Only [place] Palliative [facility] [address] 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 Gender Identity Not on file Sexual Orientation Not on file documented as of this encounter Plan of Treatment Not on file documented as of this encounter Procedures Procedure Name Priority Date/Time Associated Diagnosis Comments APTT STAT 02/28/2017 5:33 PM CDT documented in this encounter Results * aPTT (02/28/2017 5:33 PM CDT) aPTT 28.2 25.0 - 37.0 sec [facility] Blood specimen (specimen) 02/28/2017 5:33 PM CDT 02/28/2017 8:10 PM CDT us Howard Sudarshan Philippe MD LAB BLOOD ORDERABLES Fi nal Result [facility] [address] [address] Department [place] [address] documented in this encounter Visit Diagnoses Not on filedocumented in this encounter Care Teams Carpet Cleaning Technician Relationship Specialty Start Date End Date Jey Klein PA [address] [place], [place] [id number] PCP - General 02/23/17 04/13/18 documented as of this encounter
--- OUTSIDE RECORDS SUMMARY | 2024-10-07 00:55 | XMS_ITS | Encounter Summary ---
Author Organization [facility] Medical Group Address [address] [facility] [address] [place] [address] Care Team Providers Care Sr Community Manager Name Role Phone Jey Klein Primary Care Provider + Encounter Details Date Type Department Care Team (Late st Contact Info) Description 03/05/2017 Orders Only Hospitalists [address] [address] [place] [address] [address] Social History Tobacco Use Types Packs/Day Years Used Date Smoking Tobacco: Never Assessed Comments Unknown Sex and Gender Information Value Date Recorded Sex Assigned at Not on file 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 Gender Identity Not on file Sexual Orientation Not on file documented as of this encounter Plan of Treatment Not on file documented as of this encounter Procedures Procedure Name Priority Date/Time Associated Diagnosis Comments GLUCOSE POC Routine 03/05/2017 7:54 AM CDT documented in this encounter Results * Glucose POC (03/05/2017 7:54 AM CDT) Glucose, POC 158 70 - 199 mg/dL [facility] Blood specimen (specimen) 03/05/2017 7:54 AM CDT 03/05/2017 7:54 AM CDT Elly Julian MD POINT OF CARE TEST ORDERABLES Final Result [facility] [id number] [address] Department [place] [address] documented in this encounter Visit Diagnoses Not on filedocumented in this encounter Care Teams Sr Community Manager Relationship Specialty Start Date End Date Jey Klein PA [address] [place] [address] PCP - General 02/23/17 04/13/18 documented as of this encounter
--- OUTSIDE RECORDS SUMMARY | 2024-10-07 00:55 | XMS_ITS | Encounter Summary ---
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 Gender Identity Not on file Sexual Orientation Not on file documented as of this encounter Plan of Treatment Not on file documented as of this encounter Procedures Procedure Name Priority Date/Time Associated Diagnosis Comments GLUCOSE POC Routine 03/04/2017 1:17 PM CDT documented in this encounter Results * Glucose POC (03/04/2017 1:17 PM CDT) Glucose, POC 79 70 - 199 mg/dL [facility] Blood specimen (specimen) 03/04/2017 1:17 PM CDT 03/04/2017 1:17 PM CDT Elly Julian MD POINT OF CARE TEST ORDERABLES Final Result [facility] [address] [address] Department [place] [address] documented in this encounter Visit Diagnoses Not on filedocumented in this encounter Care Teams Plug Stitcher Relationship Specialty Start Date End Date Jey Klein PA [address] [place] [address] PCP - General 02/23/17 04/13/18 documented as of this encounter
--- OUTSIDE RECORDS SUMMARY | 2024-10-07 00:55 | XMS_ITS | Encounter Summary ---
Author Organization [facility] Medical Group Address [address] [facility] [address] [place] [address] Care Team Providers Care Structural Steel Erector Name Role Phone Jey Klein Primary Care Provider + Encounter Details Date Type Department Care Team (Late st Contact Info) Description 02/28/2017 Orders Only [facility] [place] [address] 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 Gender Identity Not on file Sexual Orientation Not on file documented as of this encounter Plan of Treatment Not on file documented as of this encounter Procedures Procedure Name Priority Date/Time Associated Diagnosis Comments URINALYSIS, MICROSCOPIC ONLY STAT 02/28/2017 6:30 PM CDT documented in this encounter Results * (ABNORMAL) Urinalysis, microscopic (02/28/2017 6:30 PM CDT) RBC, ur <1 0 - 3 /HPF [facility] WBC, ur 6(H) 0 - 5 /HPF [facility] Bacteria, ur Trace [facility] Epithelial cells, renal, ur 0 0 - 0 /HPF [facility] Epithelial cells, squamous, ur 9 /LPF [facility] Mucus, ur Present [facility] Hyaline casts, ur 1(H) 0 - 0 /LPF [facility] Urine/Blood 02/28/2017 6:30 PM CDT 02/28/2017 6:38 PM CDT us Howard Philippe MD LAB URINE ORDERABLES Fi nal Result Performing Organization Address City/State/[facility] Co de Phone Number [facility] [phone] [address]anda Department [place] [address] documented in this encounter Visit Diagnoses Not on filedocumented in this encounter Care Teams Structural Steel Erector Relationship Specialty Start Date End Date Jey Klein PA [address] [place] [address] PCP - General 02/23/17 04/13/18 documented as of this encounter
--- OUTSIDE RECORDS SUMMARY | 2024-10-07 00:55 | XMS_ITS | Encounter Summary ---
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 Female 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 Gender Identity Not on file Sexual Orientation Not on file documented as of this encounter Plan of Treatment Not on file documented as of this encounter Procedures Procedure Name Priority Date/Time Associated Diagnosis Comments GLUCOSE POC Routine 03/04/2017 6:01 PM CDT documented in this encounter Results * Glucose POC (03/04/2017 6:01 PM CDT) Glucose, POC 155 70 - 199 mg/dL [facility] Blood specimen (specimen) 03/04/2017 6:01 PM CDT 03/04/2017 6:01 PM CDT Elly Julian MD POINT OF CARE TEST ORDERABLES Final Result [facility] [address] [address] Department [place] [address] documented in this encounter Visit Diagnoses Not on filedocumented in this encounter Care Teams Asbestos Cloth Inspector Relationship Specialty Start Date End Date Jey Klein PA [address] [place] [address] PCP - General 02/23/17 04/13/18 documented as of this encounter
--- OUTSIDE RECORDS SUMMARY | 2024-10-07 00:55 | XMS_ITS | Encounter Summary ---
Author Organization [facility] Medical Group Address [address] [facility] [address] [place] [address] Care Team Providers Care Bank Examiner Name Role Phone Jey Klein Primary Care Provider + Encounter Details Date Type Department Care Team (Late st Contact Info) Description 03/06/2017 Orders Only Hospitalists [address] [address] [place] [address] [address] Social History Tobacco Use Types Packs/Day Years Used Date Smoking Tobacco: Never Assessed Comments Unknown Sex and Gender Information Value Date Recorded Sex Assigned at Not on file 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 Female 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 Gender Identity Not on file Sexual Orientation Not on file documented as of this encounter Plan of Treatment Not on file documented as of this encounter Procedures Procedure Name Priority Date/Time Associated Diagnosis Comments DIFFERENTIAL AUTO Routine 03/06/2017 4:2 8 AM CDT documented in this encounter Results * (ABNORMAL) Differential, auto (03/06/2017 4:28 AM CDT) Neutrophil pct 63.7 % [facility] Imm gran pct 1.1 % [facility] Lymphocyte pct 21.2 % [facility] Monocyte pct 11.1 % [facility] Eosinophil pct 0.2 % [facility] Basophil pct 0.8 % [facility] Neutrophil abs 4.74 1.70 - 6.50 K/cumm [facility] Imm gran abs 0.08 0.00 - 0.10 K/cumm [facility] Lymphocyte abs 1.58 0.80 - 3.30 K/cumm [facility] Monocyte abs 0.83(H) 0.20 - 0.80 K/cumm [facility] Eosinophil abs 0.16 0.00 - 0.50 K/cumm [facility] Basophil abs 0.06 0.00 - 0.10 K/cumm [facility] Blood specimen (specimen) 03/06/2017 4:28 AM CDT 03/06/2017 4:48 AM CDT us Elly Julian MD LAB BLOOD ORDERABLE S Final Result [facility] CAR [address] [address] Department [place] [address] documented in this encounter Visit Diagnoses Not on filedocumented in this encounter Care Teams Bank Examiner Relationship Specialty Start Date End Date Jey Klein PA [address] [place] [address] PCP - General 02/23/17 04/13/18 documented as of this encounter
--- OUTSIDE RECORDS SUMMARY | 2024-10-07 00:55 | XMS_ITS | Encounter Summary ---
Author Organization [facility] Address [address] [facility] [address] [place] [address] Care Team Providers Care Oven Operator Automatic Name Role Phone Jey Klein Primary Care Provider + Encounter Details Date Type Department Care Team (Late st Contact Info) Description 03/02/2017 Orders Only Hospitalists [address] [address] [place] [address] [address] Social History Tobacco Use Types Packs/Day Years Used Date Smoking Tobacco: Never Assessed Comments Unknown Sex and Gender Information Value Date Recorded Sex Assigned at Not on file 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 Sex Female 3:51 AM CHART READER Gender Identity Not on file Sexual Orientation Not on file documented as of this encounter Plan of Treatment Not on file documented as of this encounter Procedures Procedure Name Priority Date/Time Associated Diagnosis Comments COMPREHENSIVE METABOLIC PANEL Routine 03/02/2017 5:25 AM CDT documented in this encounter Results * (ABNORMAL) Comprehensive metabolic panel (03/02/2017 5:25 AM CDT) Sodium 130(L) 135 - 145 mmol/L [facility] Potassium, pl 3.5 3.5 - 5.1 mmol/L [facility] CO2 26 22 - 32 mmol/L [facility] BUN 15 8 - 24 mg/dL [facility] Glucose 102 70 - 199 mg/dL [facility] Creatinine 0.82 0.60 - 1.30 mg/dL [facility] Calcium 8.3(L) 8.4 - 10.5 mg/dL [facility] Chloride 94(L) 100 - 114 mmol/L [facility] Albumin 2.3(L) 3.2 - 4.8 g/dL [facility] AST 23 7 - 40 Units/L [facility] ALT 22 1 - 45 Units/L [facility] Alk phos 214(H) 30 - 110 Units/L [facility] Bilirubin, total 2.10(H) 0.10 - 1.30 mg/dL [facility] Protein, pl 5.7(L) 6.0 - 8.3 g/dL [facility] Anion gap 14 8 - 16 mmol/L [facility] Blood specimen (specimen) 03/02/2017 5:25 AM CDT 03/02/2017 5:52 AM CDT us Elly Julian MD LAB BLOOD ORDERABLE S Final Result [facility] [address] Department of Laboratories [place], [place] [id number] documented in this encounter Visit Diagnoses Not on filedocumented in this encounter Care Teams Oven Operator Automatic Relationship Specialty Start Date End Date Jey Klein PA [address] [place] [phone] PCP - General 02/23/17 04/13/18 documented as of this encounter
--- OUTSIDE RECORDS SUMMARY | 2024-10-07 00:55 | XMS_ITS | Encounter Summary ---
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 Sex Female 3:51 AM PLUMBER Gender Identity Not on file Sexual Orientation Not on file documented as of this encounter Plan of Treatment Not on file documented as of this encounter Procedures Procedure Name Priority Date/Time Associated Diagnosis Comments GLUCOSE POC Routine 03/04/2017 10:33 AM CDT documented in this encounter Results * Glucose POC (03/04/2017 10:33 AM CDT) Glucose, POC 95 70 - 199 mg/dL [facility] Blood specimen (specimen) 03/04/2017 10:33 AM CDT 03/04/2017 10:33 AM CDT Elly Julian MD POINT OF CARE TEST ORDERABLES Final Result [facility] [id number] [place] [address] documented in this encounter Visit Diagnoses Not on filedocumented in this encounter Care Teams Mill Recorder Relationship Specialty Start Date End Date Jey Klein PA [address] [place] [address] PCP - General 02/23/17 04/13/18 documented as of this encounter
--- OUTSIDE RECORDS SUMMARY | 2024-10-07 00:55 | XMS_ITS | Encounter Summary ---
Author Organization [facility] Address [address] [facility] [address] [place] [address] Care Team Providers Care Certified Family Mediator Name Role Phone Jey Klein Primary Care Provider + Encounter Details Date Type Department Care Team (Late st Contact Info) Description 03/03/2017 Orders Only Hospitalists [address] [address] [place] [address] [address] Social History Tobacco Use Types Packs/Day Years Used Date Smoking Tobacco: Never Assessed Comments Unknown Sex and Gender Information Value Date Recorded Sex Assigned at Not on file 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 Gender Identity Not on file Sexual Orientation Not on file documented as of this encounter Plan of Treatment Not on file documented as of this encounter Procedures Procedure Name Priority Date/Time Associated Diagnosis Comments PROTIME-INR Routine 03/03/2017 12:39 PM CDT documented in this encounter Results * (ABNORMAL) Protime-INR (03/03/2017 12:39 PM CDT) PT 18.1(H) 9.5 - 13.0 sec [facility] INR 1.56(H) 0.90 - 1.20 [facility] Blood specimen (specimen) 03/03/2017 12:39 PM CDT 03/03/2017 1:01 PM CDT us Elly Julian MD LAB BLOOD ORDERABLE S Final Result [facility] [address] Department [place] [address] documented in this encounter Visit Diagnoses Not on filedocumented in this encounter Care Teams Certified Family Mediator Relationship Specialty Start Date End Date Jey Klein PA [address] [place] [address] PCP - General 02/23/17 04/13/18 documented as of this encounter
--- OUTSIDE RECORDS SUMMARY | 2024-10-07 00:55 | XMS_ITS | Encounter Summary ---
Author Organization [facility] Address [address] [facility] [address] [place] [address] Care Team Providers Care Materials Recycler Name Role Phone Jey Klein Primary Care Provider + Encounter Details Date Type Department Care Team (Late st Contact Info) Description 02/28/2017 Orders Only [facility] Palliative Care [address] [facility] [address] [place] [address] [place] [id number] [place] [address] Social History Tobacco Use Types Packs/Day Years Used Date Smoking Tobacco: Never Assessed Comments Unknown Sex and Gender Information Value Date Recorded Sex Assigned at Not on file 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 Gender Identity Not on file Sexual Orientation Not on file documented as of this encounter Plan of Treatment Not on file documented as of this encounter Procedures Procedure Name Priority Date/Time Associated Diagnosis Comments B-TYPE NATRIURETIC PEPTIDE STAT 02/28/2017 5:33 PM CDT documented in this encounter Results * (ABNORMAL) B-type natriuretic peptide (02/28/2017 5:33 PM CDT) B-Type Natriuretic Peptide (BNP) 911(H) 0 - 100 pg/mL [facility] Blood specimen (specimen) 02/28/2017 5:33 PM CDT 02/28/2017 5:44 PM CDT us Howard Philippe MD LAB BLOOD ORDERABLES Fi nal Result [facility] [address] Department [place] [address] documented in this encounter Visit Diagnoses Not on filedocumented in this encounter Care Teams Materials Recycler Relationship Specialty Start Date End Date Jey Klein PA [address] [place] [address] PCP - General 02/23/17 04/13/18 documented as of this encounter
--- OUTSIDE RECORDS SUMMARY | 2024-10-07 00:55 | XMS_ITS | Encounter Summary ---
Author Organization [facility] Address [address] 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 Gender Identity Not on file Sexual Orientation Not on file documented as of this encounter Plan of Treatment Not on file documented as of this encounter Procedures Procedure Name Priority Date/Time Associated Diagnosis Comments CBC WITH AUTO DIFFERENTIAL Routine 03/06/2017 4:28 AM CDT documented in this encounter Results * (ABNORMAL) CBC with auto differential (03/06/2017 4:28 AM CDT) WBC 7.45 3.80 - 9.90 K/cumm [facility] RBC 3.43(L) 3.90 - 5.20 M/cumm [facility] Hgb 8.7(L) 11.9 - 15.5 g/dL [facility] Hct 28.8(L) 35.6 - 45.5 % [facility] MCV 84.0 81.3 - 96.4 fL [facility] MCH 25.4(L) 27.1 - 33.3 pg [facility] MCHC 30.2(L) 32.3 - 35.7 g/dL [facility] RDW CV 19.0(H) 11.1 - 14.9 % [facility] RDW SD 56.8(H) 35.7 - 48.1 fL [facility] Plt 409(H) 150 - 400 K/cumm [facility] MPV 9.0(L) 9.1 - 12.3 fL [facility] NRBC 0.0 0.0 - 0.2 % [facility] NRBC abs 0.00 0.00 - 0.01 K/cumm [facility] Blood specimen (specimen) 03/06/2017 4:28 AM CDT 03/06/2017 4:48 AM CDT us Elly Julian MD LAB BLOOD ORDERABLE S Final Result [facility] [address] Department [place] [address] documented in this encounter Visit Diagnoses Not on filedocumented in this encounter Care Teams Assistant Professor Sculpture Relationship Specialty Start Date End Date Jey Klein PA [address] [place] [address] PCP - General 02/23/17 04/13/18 documented as of this encounter
--- OUTSIDE RECORDS SUMMARY | 2024-10-07 00:55 | XMS_ITS | Encounter Summary ---
Author Organization [facility] Address [address] [facility] [address] [place] [address] Care Team Providers Care Maintenance Planner Name Role Phone Jey Klein Primary Care Provider + Encounter Details Date Type Department Care Team (Late st Contact Info) Description 03/02/2017 Orders Only Hospitalists [address] [address] [place] [address] [address] Social History Tobacco Use Types Packs/Day Years Used Date Smoking Tobacco: Never Assessed Comments Unknown Sex and Gender Information Value Date Recorded Sex Assigned at Not on file 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 Gender Identity Not on file Sexual Orientation Not on file documented as of this encounter Plan of Treatment Not on file documented as of this encounter Procedures Procedure Name Priority Date/Time Associated Diagnosis Comments MAGNESIUM Routine 03/02/2017 5:25 AM CDT documented in this encounter Results * (ABNORMAL) Magnesium (03/02/2017 5:25 AM CDT) Magnesium 1.7(L) 1.8 - 2.6 mg/dL [facility] Blood specimen (specimen) 03/02/2017 5:25 AM CDT 03/02/2017 5:52 AM CDT us Elly Julian MD LAB BLOOD ORDERABLE S Final Result [facility] [id number] Department [place] [address] documented in this encounter Visit Diagnoses Not on filedocumented in this encounter Care Teams Maintenance Planner Relationship Specialty Start Date End Date Jey Klein PA [address] [place] [phone] PCP - General 02/23/17 04/13/18 documented as of this encounter
--- OUTSIDE RECORDS SUMMARY | 2024-10-07 00:55 | XMS_ITS | Encounter Summary ---
Author Organization 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 60 - 89 mL/min/1.73m2 Mildly to moderately decreased ?45 - 59 mL/min/1.73m2 Moderately to severely decreased ??30 - 44 mL/min/1.73m2 Severely decreased ?15 - 29 mL/min/1.73m2 Kidney Failure ?< 15 ??mL/min/1.73m2 *Relative to young adult level If -Liberian multiply value by 1.16. Estimated glomerular filtration [...] was last reviewed 2016. Blood specimen (specimen) 03/02/2017 5:25 AM CDT 03/02/2017 5:52 AM CDT us Elly Julian MD LAB BLOOD ORDERABLE S Final Result Performing Organization Address City/State/[facility] Co de Phone Number [facility] [id number] Department [place] [address] documented in this encounter Visit Diagnoses Not on filedocumented in this encounter Care Teams Toggle Press Folder And Feeder Relationship Specialty Start Date End Date Jey Klein PA [address] [place] [address] PCP - General 02/23/17 04/13/18 documented as of this encounter
--- OUTSIDE RECORDS SUMMARY | 2024-10-07 00:55 | XMS_ITS | Encounter Summary ---
Author Organization [facility] Address [address] [facility] [address] [place] [address] Care Team Providers Care Teaching Manager Name Role Phone Jey Klein Primary Care Provider + Encounter Details Date Type Department Care Team (Late st Contact Info) Description 03/05/2017 Orders Only Hospitalists [address] [address] [place] [address] [address] Social History Tobacco Use Types Packs/Day Years Used Date Smoking Tobacco: Never Assessed Comments Unknown Sex and Gender Information Value Date Recorded Sex Assigned at Not on file 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 Gender Identity Not on file Sexual Orientation Not on file documented as of this encounter Plan of Treatment Not on file documented as of this encounter Procedures Procedure Name Priority Date/Time Associated Diagnosis Comments GLUCOSE POC Routine 03/05/2017 5:41 PM CDT documented in this encounter Results * (ABNORMAL) Glucose POC (03/05/2017 5:41 PM CDT) Glucose, POC 270(H) 70 - 199 mg/dL [facility] Blood specimen (specimen) 03/05/2017 5:41 PM CDT 03/05/2017 5:41 PM CDT us Elly Julian MD POINT OF CARE TEST ORDERABLES Final Result [facility] [id number] Department [place] [address] documented in this encounter Visit Diagnoses Not on filedocumented in this encounter Care Teams Teaching Manager Relationship Specialty Start Date End Date Jey Klein PA [address] [place] [address] PCP - General 02/23/17 04/13/18 documented as of this encounter
--- OUTSIDE RECORDS SUMMARY | 2024-10-07 00:55 | XMS_ITS | Encounter Summary ---
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 Gender Identity Not on file Sexual Orientation Not on file documented as of this encounter Plan of Treatment Not on file documented as of this encounter Procedures Procedure Name Priority Date/Time Associated Diagnosis Comments GLUCOSE POC Routine 03/04/2017 7:49 AM CDT documented in this encounter Results * Glucose POC (03/04/2017 7:49 AM CDT) Glucose, POC 104 70 - 199 mg/dL [facility] Blood specimen (specimen) 03/04/2017 7:49 AM CDT 03/04/2017 7:49 AM CDT Elly Julian MD POINT OF CARE TEST ORDERABLES Final Result [facility] [id number] [place] [address] documented in this encounter Visit Diagnoses Not on filedocumented in this encounter Care Teams Tooler Relationship Specialty Start Date End Date Jey Klein PA [address] [place] [address] PCP - General 02/23/17 04/13/18 documented as of this encounter
--- OUTSIDE RECORDS SUMMARY | 2024-10-07 00:55 | XMS_ITS | Encounter Summary ---
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60 - 1.30 mg/dL [facility] Calcium 8.4 8.4 - 10.5 mg/dL [facility] Chloride 94(L) 100 - 114 mmol/L [facility] Albumin 2.4(L) 3.2 - 4.8 g/dL [facility] AST 27 7 - 40 Units/L [facility] ALT 22 1 - 45 Units/L [facility] Alk phos 243(H) 30 - 110 Units/L [facility] Bilirubin, total 2.00(H) 0.10 - 1.30 mg/dL [facility] Protein, pl 6.2 6.0 - 8.3 g/dL [facility] Anion gap 13 8 - 16 mmol/L [facility] Blood specimen (specimen) 03/06/2017 4:28 AM CDT 03/06/2017 4:48 AM CDT us Elly Julian MD LAB BLOOD ORDERABLE S Final Result [facility] [address] Department [place] [address] documented in this encounter Visit Diagnoses Not on filedocumented in this encounter Care Teams Irrigationist Relationship Specialty Start Date End Date Jey Klein PA [address] [place] [address] PCP - General 02/23/17 04/13/18 documented as of this encounter
--- OUTSIDE RECORDS SUMMARY | 2024-10-07 00:55 | XMS_ITS | Encounter Summary ---
Author Organization [facility] Medical [facility] Address [address] [facility] [address] [place] [address] Care Team Providers Care Field Enumerator Name Role Phone Jey Klein Primary Care Provider + Encounter Details Date Type Department Care Team (Late st Contact Info) Description 02/28/2017 Orders Only [facility] [address] [facility] [address] [place] [address] [place] [address] [place] [address] Social History Tobacco Use Types Packs/Day Years Used Date Smoking Tobacco: Never Assessed Comments Unknown Sex and Gender Information Value Date Recorded Sex Assigned at Not on file 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 [facility] Comment:Testing performed by : [facility], [address] [place]., [address] Urine/Blood 02/28/2017 6:30 PM CDT 02/28/2017 8:13 PM CDT Narrative [facility] - 03/01/2017 2:40 PM CDT us Howard Philippe MD LAB MICROBIOLOGY - GENE RAL ORDERABLES Final Result [facility] [address] Department [place] [address] documented in this encounter Visit Diagnoses Not on filedocumented in this encounter Care Teams Field Enumerator Relationship Specialty Start Date End Date Jey Klein PA [address] [place] [address] PCP - General 02/23/17 04/13/18 documented as of this encounter
--- OUTSIDE RECORDS SUMMARY | 2024-10-07 00:55 | XMS_ITS | Encounter Summary ---
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 Gender Identity Not on file Sexual Orientation Not on file documented as of this encounter Plan of Treatment Not on file documented as of this encounter Procedures Procedure Name Priority Date/Time Associated Diagnosis Comments GLUCOSE POC Routine 03/02/2017 7:45 AM CDT documented in this encounter Results * Glucose POC (03/02/2017 7:45 AM CDT) Glucose, POC 96 70 - 199 mg/dL [facility] Blood specimen (specimen) 03/02/2017 7:45 AM CDT 03/02/2017 7:45 AM CDT Elly Julian MD POINT OF CARE TEST ORDERABLES Final Result [facility] [address] Department [place] [address] documented in this encounter Visit Diagnoses Not on filedocumented in this encounter Care Teams Lens Hardener Relationship Specialty Start Date End Date Jey Klein PA [address] [place] [address] PCP - General 02/23/17 04/13/18 documented as of this encounter
--- OUTSIDE RECORDS SUMMARY | 2024-10-07 00:55 | XMS_ITS | Encounter Summary ---
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 Gender Identity Not on file Sexual Orientation Not on file documented as of this encounter Plan of Treatment Not on file documented as of this encounter Procedures Procedure Name Priority Date/Time Associated Diagnosis Comments GLUCOSE POC Routine 03/02/2017 5:45 PM CDT documented in this encounter Results * (ABNORMAL) Glucose POC (03/02/2017 5:45 PM CDT) Glucose, POC 262(H) 70 - 199 mg/dL [facility] Blood specimen (specimen) 03/02/2017 5:45 PM CDT 03/02/2017 5:45 PM CDT us Elly Julian MD POINT OF CARE TEST ORDERABLES Final Result [facility] [address] [place] [address] documented in this encounter Visit Diagnoses Not on filedocumented in this encounter Care Teams Hall Coordinator Relationship Specialty Start Date End Date Jey Klein PA [address] [place] [phone] PCP - General 02/23/17 04/13/18 documented as of this encounter
--- OUTSIDE RECORDS SUMMARY | 2024-10-07 00:55 | XMS_ITS | Encounter Summary ---
Author Organization [facility] Address [address] [facility] [address] [place] [address] Care Team Providers Care Bull Gang Supervisor Name Role Phone Jey Klein Primary Care Provider + Encounter Details Date Type Department Care Team (Late st Contact Info) Description 03/01/2017 Orders Only [facility] [address] [facility] [address] [place] [address] [place] [address] 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 This assay is not intended for HCV RNA detection purposes. ADDITIONAL INFORMATION This test was performed using the [employer] RealTime HCV Genotype II assay ([employer] [place], [place]). Test Performed by: [facility] - [address] [address] Blood specimen (specimen) 03/01/2017 7:46 PM CDT 03/01/2017 7:52 PM CDT us Thelma Malcolm MD LAB MICROBIOLOGY - [facility] ORDERABLES Final Result [facility] [address] [address] Landa Department [place] [address] documented in this encounter Visit Diagnoses Not on filedocumented in this encounter Care Teams Bull Gang Supervisor Relationship Specialty Start Date End Date Jey Klein PA [address] [place] [address] PCP - General 02/23/17 04/13/18 documented as of this encounter
--- OUTSIDE RECORDS SUMMARY | 2024-10-07 00:55 | XMS_ITS | Encounter Summary ---
Author Organization [facility] Address [address] [facility] [address] [place] [address] Care Team Providers Care Colorectal Surgeon Name Role Phone Jey Klein Primary Care Provider + Encounter Details Date Type Department Care Team (Late st Contact Info) Description 03/02/2017 Orders Only Hospitalists [address] [address] [place] [address] [address] Social History Tobacco Use Types Packs/Day Years Used Date Smoking Tobacco: Never Assessed Comments Unknown Sex and Gender Information Value Date Recorded Sex Assigned at Not on file 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 Gender Identity Not on file Sexual Orientation Not on file documented as of this encounter Plan of Treatment Not on file documented as of this encounter Procedures Procedure Name Priority Date/Time Associated Diagnosis Comments CBC WITH AUTO DIFFERENTIAL Routine 03/02/2017 5:25 AM CDT documented in this encounter Results * (ABNORMAL) CBC with auto differential (03/02/2017 5:25 AM CDT) WBC 8.54 3.80 - 9.90 K/cumm [facility] RBC 3.47(L) 3.90 - 5.20 M/cumm [facility] Hgb 8.7(L) 11.9 - 15.5 g/dL [facility] Hct 29.5(L) 35.6 - 45.5 % [facility] MCV 85.0 81.3 - 96.4 fL [facility] MCH 25.1(L) 27.1 - 33.3 pg [facility] MCHC 29.5(L) 32.3 - 35.7 g/dL [facility] RDW CV 18.6(H) 11.1 - 14.9 % [facility] RDW SD 55.2(H) 35.7 - 48.1 fL [facility] Plt 397 150 - 400 K/cumm [facility] MPV 9.2 9.1 - 12.3 fL [facility] NRBC 0.0 0.0 - 0.2 % [facility] NRBC abs 0.00 0.00 - 0.01 K/cumm [facility] Blood specimen (specimen) 03/02/2017 5:25 AM CDT 03/02/2017 5:50 AM CDT us Elly Julian MD LAB BLOOD ORDERABLE S Final Result [facility] [phone] [address] Landa Department [place] [address] documented in this encounter Visit Diagnoses Not on filedocumented in this encounter Care Teams Colorectal Surgeon Relationship Specialty Start Date End Date Jey Klein PA [address] [place] [address] PCP - General 02/23/17 04/13/18 documented as of this encounter
--- OUTSIDE RECORDS SUMMARY | 2024-10-07 00:55 | XMS_ITS | Encounter Summary ---
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 Gender Identity Not on file Sexual Orientation Not on file documented as of this encounter Plan of Treatment Not on file documented as of this encounter Procedures Procedure Name Priority Date/Time Associated Diagnosis Comments GLUCOSE POC Routine 03/02/2017 1:05 PM CDT documented in this encounter Results * (ABNORMAL) Glucose POC (03/02/2017 1:05 PM CDT) Glucose, POC 246(H) 70 - 199 mg/dL [facility] Blood specimen (specimen) 03/02/2017 1:05 PM CDT 03/02/2017 1:05 PM CDT us Elly Julian MD POINT OF CARE TEST ORDERABLES Final Result [facility] [phone] [address]anda Department [place] [address] documented in this encounter Visit Diagnoses Not on filedocumented in this encounter Care Teams Supervisor/Port Director Relationship Specialty Start Date End Date Jey Klein PA [address] [place] [address] PCP - General 02/23/17 04/13/18 documented as of this encounter
--- OUTSIDE RECORDS SUMMARY | 2024-10-07 00:55 | XMS_ITS | Encounter Summary ---
Author Organization [facility] Address [address] [facility] [address] [place] [address] Care Team Providers Care Fruit Preserver Name Role Phone Jey Klein Primary Care Provider + Encounter Details Date Type Department Care Team (Late st Contact Info) Description 02/28/2017 Orders Only [facility] [address] 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 Gender Identity Not on file Sexual Orientation Not on file documented as of this encounter Plan of Treatment Not on file documented as of this encounter Procedures Procedure Name Priority Date/Time Associated Diagnosis Comments COMPREHENSIVE METABOLIC PANEL STAT 02/28/2017 5:33 PM CDT documented in this encounter Results * (ABNORMAL) Comprehensive metabolic panel (02/28/2017 5:33 PM CDT) Sodium 127(L) 135 - 145 mmol/L [facility] Potassium, pl 4.5 3.5 - 5.1 mmol/L [facility] CO2 25 22 - 32 mmol/L [facility] BUN 19 8 - 24 mg/dL [facility] Glucose 378(H) 70 - 199 mg/dL [facility] Creatinine 0.95 0.60 - 1.30 mg/dL [facility] Calcium 8.1(L) 8.4 - 10.5 mg/dL [facility] Chloride 92(L) 100 - 114 mmol/L [facility] Albumin 2.5(L) 3.2 - 4.8 g/dL [facility] AST 29 7 - 40 Units/L [facility] ALT 27 1 - 45 Units/L [facility] Alk phos 244(H) 30 - 110 Units/L [facility] Bilirubin, total 2.70(H) 0.10 - 1.30 mg/dL [facility] Protein, pl 6.0 6.0 - 8.3 g/dL [facility] Anion gap 14 8 - 16 mmol/L [facility] Blood specimen (specimen) 02/28/2017 5:33 PM CDT 02/28/2017 5:44 PM CDT us Howard Philippe MD LAB BLOOD ORDERABLES nal Result [facility] [address] [address] Landa Department [place] [address] documented in this encounter Visit Diagnoses Not on filedocumented in this encounter Care Teams Fruit Preserver Relationship Specialty [place] [address] [place] [address] PCP - General 02/23/17 04/13/18 documented as of this encounter
--- OUTSIDE RECORDS SUMMARY | 2024-10-07 00:55 | XMS_ITS | Encounter Summary ---
Author Organization [facility] Address [address] 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 Gender Identity Not on file Sexual Orientation Not on file documented as of this encounter Plan of Treatment Not on file documented as of this encounter Procedures Procedure Name Priority Date/Time Associated Diagnosis Comments GLUCOSE POC Routine 03/06/2017 9:07 PM CDT documented in this encounter Results * (ABNORMAL) Glucose POC (03/06/2017 9:07 PM CDT) Glucose, POC 264(H) 70 - 199 mg/dL [facility] Blood specimen (specimen) 03/06/2017 9:07 PM CDT 03/06/2017 9:07 PM CDT us Elly Julian MD POINT OF CARE TEST ORDERABLES Final Result [facility] [phone] [address] Landa Department [place] [address] documented in this encounter Visit Diagnoses Not on filedocumented in this encounter Care Teams Bulldogger Relationship Specialty Start Date End Date Jey Klein PA [address] [place] [address] PCP - General 02/23/17 04/13/18 documented as of this encounter
--- OUTSIDE RECORDS SUMMARY | 2024-10-07 00:55 | XMS_ITS | Encounter Summary ---
Author Organization [facility] Address [address] [facility] [address] [place] [address] Care Team Providers Care Telesales Professional Name Role Phone Jey Klein Primary Care Provider + Encounter Details Date Type Department Care Team (Late st Contact Info) Description 03/06/2017 Orders Only Hospitalists [address] [address] [place] [address] [address] Social History Tobacco Use Types Packs/Day Years Used Date Smoking Tobacco: Never Assessed Comments Unknown Sex and Gender Information Value Date Recorded Sex Assigned at Not on file 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 60 - 89 mL/min/1.73m2 Mildly to moderately decreased ?45 - 59 mL/min/1.73m2 Moderately to severely decreased ??30 - 44 mL/min/1.73m2 Severely decreased ?15 - 29 mL/min/1.73m2 Kidney Failure ?< 15 ??mL/min/1.73m2 *Relative to young adult level If -Palestinian multiply value by 1.16. Estimated glomerular filtration [...] was last reviewed 2016. Blood specimen (specimen) 03/06/2017 4:28 AM CDT 03/06/2017 4:52 AM CDT us Elly Julian MD LAB BLOOD ORDERABLE S Final Result Performing Organization Address City/State/[facility] Co de Phone Number [facility] [phone] Jazz[address] Landa Department [place] [address] documented in this encounter Visit Diagnoses Not on filedocumented in this encounter Care Teams Telesales Professional Relationship Specialty Start Date End Date Jey Klein PA [address] [place] [address] PCP - General 02/23/17 04/13/18 documented as of this encounter
--- OUTSIDE RECORDS SUMMARY | 2024-10-07 00:55 | XMS_ITS | Encounter Summary ---
Author Organization [facility] Address [address] [facility] [address] [place] [address] Care Team Providers Care Entertainment & Media Correspondent Name Role Phone Jey Klein Primary Care Provider + Encounter Details Date Type Department Care Team (Late st Contact Info) Description 03/04/2017 Orders Only Hospitalists [address] [address] [place] [address] [address] Social History Tobacco Use Types Packs/Day Years Used Date Smoking Tobacco: Never Assessed Comments Unknown Sex and Gender Information Value Date Recorded Sex Assigned at Not on file 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 Gender Identity Not on file Sexual Orientation Not on file documented as of this encounter Plan of Treatment Not on file documented as of this encounter Procedures Procedure Name Priority Date/Time Associated Diagnosis Comments DIFFERENTIAL AUTO Routine 03/04/2017 4:3 9 AM CDT documented in this encounter Results * Differential, auto (03/04/2017 4:39 AM CDT) Neutrophil pct 71.0 % [facility] Imm gran pct 0.4 % [facility] Lymphocyte pct 15.2 % [facility] Monocyte pct 10.9 % [facility] Eosinophil pct 0.2 % [facility] Basophil pct 0.3 % [facility] Neutrophil abs 4.81 1.70 - 6.50 K/cumm [facility] Imm gran abs 0.03 0.00 - 0.10 K/cumm [facility] Lymphocyte abs 1.03 0.80 - 3.30 K/cumm [facility] Monocyte abs 0.74 0.20 - 0.80 K/cumm [facility] Eosinophil abs 0.15 0.00 - 0.50 K/cumm [facility] Basophil abs 0.02 0.00 - 0.10 K/cumm [facility] Blood specimen (specimen) 03/04/2017 4:39 AM CDT 03/04/2017 4:51 AM CDT us Elly Julian MD LAB BLOOD ORDERABLE S Final Result Performing Organization Address City/State/[facility] Co de Phone Number [facility] [phone] [address] Landa Department [place] [address] documented in this encounter Visit Diagnoses Not on filedocumented in this encounter Care Teams Entertainment & Media Correspondent Relationship Specialty Start Date End Date Jey Klein PA [address] [place] [address] PCP - General 02/23/17 04/13/18 documented as of this encounter
--- OUTSIDE RECORDS SUMMARY | 2024-10-07 00:55 | XMS_ITS | Encounter Summary ---
Author Organization [facility] Address [address] [facility] [address] [place] [address] Care Team Providers Care Multiple Spindle Router Operator Name Role Phone Jey Klein Primary Care Provider + Rojas Fitzpatrick MD Primary Care Provider [phone] Jey Klein Primary Care Provider + Encounter Details Date Type Department Care Team (Late st Contact Info) Description 02/14/2017 Orders Only [facility] [address] [place] [address] [place] [address] 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 Gender Identity Not on file Sexual Orientation Not on file documented as of this encounter Plan of Treatment Not on file documented as of this encounter Procedures Procedure Name Priority Date/Time Associated Diagnosis Comments GLUCOSE POC Routine 02/14/2017 5:46 PM CDT documented in this encounter Results * (ABNORMAL) Glucose POC (02/14/2017 5:46 PM CDT) Glucose, POC 347(H) 70 - 199 mg/dL [facility] Blood specimen (specimen) 02/14/2017 5:46 PM CDT 02/14/2017 5:46 PM CDT us Coleen Samuels MD POINT OF CARE TEST ORDERA BLES Final Result [facility] [phone] [address] Department [place] [address] documented in this encounter Visit Diagnoses Not on filedocumented in this encounter Care Teams Multiple Spindle Router Operator Relationship Specialty Start Date End Date Jey Klein PA [address] [place] [address] PCP - General 02/14/17 02/17/17 Rojas Fitzpatrick MD [address] [place] [address] PCP - General 02/18/17 02/22/17 Jey Klein PA [address] [place] [address] PCP - General 02/23/17 04/13/18 documented as of this encounter
--- OUTSIDE RECORDS SUMMARY | 2024-10-07 00:55 | XMS_ITS | Encounter Summary ---
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 Gender Identity Not on file Sexual Orientation Not on file documented as of this encounter Plan of Treatment Not on file documented as of this encounter Procedures Procedure Name Priority Date/Time Associated Diagnosis Comments DIFFERENTIAL AUTO Routine 03/02/2017 5:2 5 AM CDT documented in this encounter Results * (ABNORMAL) Differential, auto (03/02/2017 5:25 AM CDT) Neutrophil pct 66.0 % [facility] Imm gran pct 0.5 % [facility] Lymphocyte pct 18.9 % [facility] Monocyte pct 11.4 % [facility] Eosinophil pct 0.2 % [facility] Basophil pct 0.5 % [facility] Neutrophil abs 5.65 1.70 - 6.50 K/cumm [facility] Imm gran abs 0.04 0.00 - 0.10 K/cumm [facility] Lymphocyte abs 1.61 0.80 - 3.30 K/cumm [facility] Monocyte abs 0.97(H) 0.20 - 0.80 K/cumm [facility] Eosinophil abs 0.23 0.00 - 0.50 K/cumm [facility] Basophil abs 0.04 0.00 - 0.10 K/cumm [facility] Blood specimen (specimen) 03/02/2017 5:25 AM CDT 03/02/2017 5:50 AM CDT us Elly Julian MD LAB BLOOD ORDERABLE S Final Result [facility] CAR [phone] Jazzmine Landa Department [place] [address] documented in this encounter Visit Diagnoses Not on filedocumented in this encounter Care Teams Launderette Attendant Relationship Specialty Start Date End Date Jey Klein PA [address] [place] [address] PCP - General 02/23/17 04/13/18 documented as of this encounter
--- OUTSIDE RECORDS SUMMARY | 2024-10-07 00:55 | XMS_ITS | Encounter Summary ---
Author Organization [facility] Address [address] 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 Gender Identity Not on file Sexual Orientation Not on file documented as of this encounter Plan of Treatment Not on file documented as of this encounter Procedures Procedure Name Priority Date/Time Associated Diagnosis Comments GLUCOSE POC Routine 03/02/2017 3:20 AM CDT documented in this encounter Results * Glucose POC (03/02/2017 3:20 AM CDT) Glucose, POC 78 70 - 199 mg/dL [facility] Glucose comment 1 RN/MD Notified [facility] Blood specimen (specimen) 03/02/2017 3:20 AM CDT 03/02/2017 3:20 AM CDT us Elly Julian MD POINT OF CARE TEST ORDERABLES Final Result Performing Organization Address City/State/[facility] Co de Phone Number [facility] [phone] [address] Landa Department [place] [address] documented in this encounter Visit Diagnoses Not on filedocumented in this encounter Care Teams Contact Assembler Relationship Specialty Start Date End Date Jey Klein PA [address] [place] [address] PCP - General 02/23/17 04/13/18 documented as of this encounter
--- OUTSIDE RECORDS SUMMARY | 2024-10-07 00:55 | XMS_ITS | Encounter Summary ---
Author Organization [facility] Address [address] [facility] [address] [place] [address] Care Team Providers Care Category Development Manager Name Role Phone Jey Klein Primary Care Provider + Encounter Details Date Type Department Care Team (Late st Contact Info) Description 03/06/2017 Orders Only Hospitalists [address] [address] [place] [address] [address] Social History Tobacco Use Types Packs/Day Years Used Date Smoking Tobacco: Never Assessed Comments Unknown Sex and Gender Information Value Date Recorded Sex Assigned at Not on file 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 Gender Identity Not on file Sexual Orientation Not on file documented as of this encounter Plan of Treatment Not on file documented as of this encounter Procedures Procedure Name Priority Date/Time Associated Diagnosis Comments MAGNESIUM Routine 03/06/2017 4:28 AM CDT documented in this encounter Results * Magnesium (03/06/2017 4:28 AM CDT) Magnesium 1.8 1.8 - 2.6 mg/dL [facility] Blood specimen (specimen) 03/06/2017 4:28 AM CDT 03/06/2017 4:48 AM CDT us Elly Julian MD LAB BLOOD ORDERABLE S Final Result [facility] [phone] Jazz[address] Landa Department [place] [address] documented in this encounter Visit Diagnoses Not on filedocumented in this encounter Care Teams Category Development Manager Relationship Specialty [place] [address] [place] [address] PCP - General 02/23/17 04/13/18 documented as of this encounter
--- OUTSIDE RECORDS SUMMARY | 2024-10-07 00:55 | XMS_ITS | Encounter Summary ---
Author Organization [facility] Address [address] [facility] [address] [place] [address] Care Team Providers Care Film Printer Name Role Phone Jey Klein Primary Care Provider + Encounter Details Date Type Department Care Team (Late st Contact Info) Description 03/01/2017 Orders Only Hospitalists [address] [address] [place] [address] [address] Social History Tobacco Use Types Packs/Day Years Used Date Smoking Tobacco: Never Assessed Comments Unknown Sex and Gender Information Value Date Recorded Sex Assigned at Not on file 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 Gender Identity Not on file Sexual Orientation Not on file documented as of this encounter Plan of Treatment Not on file documented as of this encounter Procedures Procedure Name Priority Date/Time Associated Diagnosis Comments GLUCOSE POC Routine 03/01/2017 9:32 PM CDT documented in this encounter Results * (ABNORMAL) Glucose POC (03/01/2017 9:32 PM CDT) Glucose, POC 371(H) 70 - 199 mg/dL [facility] Blood specimen (specimen) 03/01/2017 9:32 PM CDT 03/01/2017 9:32 PM CDT us Elly Julian MD POINT OF CARE TEST ORDERABLES Final Result [facility] [address] Jazz[address] Landa [place] [address] documented in this encounter Visit Diagnoses Not on filedocumented in this encounter Care Teams Film Printer Relationship Specialty Start Date End Date Jey Klein PA [address] [place] [address] PCP - General 02/23/17 04/13/18 documented as of this encounter
--- OUTSIDE RECORDS SUMMARY | 2024-10-07 00:55 | XMS_ITS | Encounter Summary ---
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 Gender Identity Not on file Sexual Orientation Not on file documented as of this encounter Plan of Treatment Not on file documented as of this encounter Procedures Procedure Name Priority Date/Time Associated Diagnosis Comments CBC WITH AUTO DIFFERENTIAL Routine 03/04/2017 4:39 AM CDT documented in this encounter Results * (ABNORMAL) CBC with auto differential (03/04/2017 4:39 AM CDT) WBC 6.78 3.80 - 9.90 K/cumm [facility] RBC 3.32(L) 3.90 - 5.20 M/cumm [facility] Hgb 8.4(L) 11.9 - 15.5 g/dL [facility] Hct 27.6(L) 35.6 - 45.5 % [facility] MCV 83.1 81.3 - 96.4 fL [facility] MCH 25.3(L) 27.1 - 33.3 pg [facility] MCHC 30.4(L) 32.3 - 35.7 g/dL [facility] RDW CV 18.8(H) 11.1 - 14.9 % [facility] RDW SD 55.8(H) 35.7 - 48.1 fL [facility] Plt 388 150 - 400 K/cumm [facility] MPV 8.6(L) 9.1 - 12.3 fL [facility] NRBC 0.0 0.0 - 0.2 % [facility] NRBC abs 0.00 0.00 - 0.01 K/cumm [facility] Blood specimen (specimen) 03/04/2017 4:39 AM CDT 03/04/2017 4:51 AM CDT us Elly Julian MD LAB BLOOD ORDERABLE S Final Result [facility] [id number] Department of Laboratories [place], [place] [id number] documented in this encounter Visit Diagnoses Not on filedocumented in this encounter Care Teams Utility Worker Relationship Specialty Start Date End Date Jey Klein PA [address] [place] [address] PCP - General 02/23/17 04/13/18 documented as of this encounter
--- OUTSIDE RECORDS SUMMARY | 2024-10-07 00:55 | XMS_ITS | Encounter Summary ---
Author Organization [facility] Address [address] [facility] [address] [place] [address] Care Team Providers Care Can Dryer Name Role Phone Jey Klein Primary Care Provider + Encounter Details Date Type Department Care Team (Late st Contact Info) Description 03/01/2017 Orders Only [facility] [address] [facility] [address] [place] [address] [place] [address] [facility] [address] [place] [address] Social History Tobacco Use Types Packs/Day Years Used Date Smoking Tobacco: Never Assessed Comments Unknown Sex and Gender Information Value Date Recorded Sex Assigned at Not on file 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 Gender Identity Not on file Sexual Orientation Not on file documented as of this encounter Plan of Treatment Not on file documented as of this encounter Procedures Procedure Name Priority Date/Time Associated Diagnosis Comments [id number] , TUMOR MARKER Routine 03/01/2017 7:46 PM CDT documented in this encounter Results * [id number], Tumor Marker (03/01/2017 7:46 PM CDT) alpha Fetoprotein <2.0 0.0 - 8.3 ng/mL [facility] Comment:Testing performed by : [facility], [address] [place]., [address] Blood specimen (specimen) 03/01/2017 7:46 PM CDT 03/02/2017 9:01 AM CDT us Thelma Malcolm MD LAB BLOOD ORDERABLES Fi nal Result Performing Organization Address City/State/[facility] Co de Phone Number [facility] [phone] Department [place] [address] documented in this encounter Visit Diagnoses Not on filedocumented in this encounter Care Teams Can Dryer Relationship Specialty Start Date End Date Jey Klein PA [address] [place] [address] PCP - General 02/23/17 04/13/18 documented as of this encounter
--- OUTSIDE RECORDS SUMMARY | 2024-10-07 00:55 | XMS_ITS | Encounter Summary ---
Author Organization [facility] Address [address] [facility] [address] [place] [address] Care Team Providers Care Senior Catering Sales Manager Name Role Phone Jey Klein Primary Care Provider + Encounter Details Date Type Department Care Team (Late st Contact Info) Description 03/03/2017 Orders Only Hospitalists [address] [address] [place] [address] [address] Social History Tobacco Use Types Packs/Day Years Used Date Smoking Tobacco: Never Assessed Comments Unknown Sex and Gender Information Value Date Recorded Sex Assigned at Not on file 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 Gender Identity Not on file Sexual Orientation Not on file documented as of this encounter Plan of Treatment Not on file documented as of this encounter Procedures Procedure Name Priority Date/Time Associated Diagnosis Comments GLUCOSE POC Routine 03/03/2017 8:41 PM CDT documented in this encounter Results * (ABNORMAL) Glucose POC (03/03/2017 8:41 PM CDT) Glucose, POC 304(H) 70 - 199 mg/dL [facility] Blood specimen (specimen) 03/03/2017 8:41 PM CDT 03/03/2017 8:41 PM CDT us Elly Julian MD POINT OF CARE TEST ORDERABLES Final Result [facility] [address] Department [place] [address] documented in this encounter Visit Diagnoses Not on filedocumented in this encounter Care Teams Senior Catering Sales Manager Relationship Specialty Start Date End Date Jey Klein PA [address] [place] [address] PCP - General 02/23/17 04/13/18 documented as of this encounter
--- OUTSIDE RECORDS SUMMARY | 2024-10-07 00:55 | XMS_ITS | Encounter Summary ---
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 Gender Identity Not on file Sexual Orientation Not on file documented as of this encounter Plan of Treatment Not on file documented as of this encounter Procedures Procedure Name Priority Date/Time Associated Diagnosis Comments COMPREHENSIVE METABOLIC PANEL Routine 03/04/2017 4:39 AM CDT documented in this encounter Results * (ABNORMAL) Comprehensive metabolic panel (03/04/2017 4:39 AM CDT) Sodium 133(L) 135 - 145 mmol/L [facility] Potassium, pl 3.4(L) 3.5 - 5.1 mmol/L [facility] CO2 29 22 - 32 mmol/L [facility] BUN 15 8 - 24 mg/dL [facility] Glucose 123 70 - 199 mg/dL [facility] Creatinine 0.82 0.60 - 1.30 mg/dL [facility] Calcium 8.1(L) 8.4 - 10.5 mg/dL [facility] Chloride 94(L) 100 - 114 mmol/L [facility] Albumin 2.3(L) 3.2 - 4.8 g/dL [facility] AST 36 7 - 40 Units/L [facility] ALT 24 1 - 45 Units/L [facility] Alk phos 214(H) 30 - 110 Units/L [facility] Bilirubin, total 2.00(H) 0.10 - 1.30 mg/dL [facility] Protein, pl 6.0 6.0 - 8.3 g/dL [facility] Anion gap 13 8 - 16 mmol/L [facility] Blood specimen (specimen) 03/04/2017 4:39 AM CDT 03/04/2017 4:50 AM CDT Elly Julian MD LAB BLOOD ORDERABLE S Final Result [facility] [address] Department [place] [address] documented in this encounter Visit Diagnoses Not on filedocumented in this encounter Care Teams Tack Cleaner Relationship Specialty Start Date End Date Jey Klein PA [address] [place] [address] PCP - General 02/23/17 04/13/18 documented as of this encounter
--- OUTSIDE RECORDS SUMMARY | 2024-10-07 00:55 | XMS_ITS | Encounter Summary ---
Author Organization [facility] Address [address] [facility] [address] [place] [address] Care Team Providers Care Vice President Compliance Name Role Phone Jey Klein Primary Care Provider + Encounter Details Date Type Department Care Team (Late st Contact Info) Description 03/01/2017 Orders Only [facility] Care [address] 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 Gender Identity Not on file Sexual Orientation Not on file documented as of this encounter Plan of Treatment Not on file documented as of this encounter Procedures Procedure Name Priority Date/Time Associated Diagnosis Comments GLUCOSE POC Routine 03/01/2017 12:01 AM CDT documented in this encounter Results * (ABNORMAL) Glucose POC (03/01/2017 12:01 AM CDT) Glucose, POC 266(H) 70 - 199 mg/dL [facility] Blood specimen (specimen) 03/01/2017 12:01 AM CDT 03/01/2017 12:01 AM CDT us Howard Philippe MD POINT OF CARE TEST MAGDALENO MCINTOSH Final Result [facility] [address] [place] [address] documented in this encounter Visit Diagnoses Not on filedocumented in this encounter Care Teams Vice President Compliance Relationship Specialty Start Date End Date Jey Klein PA [address] [place] [address] PCP - General 02/23/17 04/13/18 documented as of this encounter
--- OUTSIDE RECORDS SUMMARY | 2024-10-07 00:56 | XMS_ITS | Encounter Summary ---
Author Organization [facility] Address [address] [facility] [address] [place] [address] Care Team Providers Care Early Breastfeeding Care Specialist Name Role Phone Jey Klein Primary Care Provider + Rojas Fitzpatrick MD Primary Care Provider [phone] Jey Klein Primary Care Provider + Encounter Details Date Type Department Care Team (Late st Contact Info) Description 02/14/2017 Orders Only [facility] [address] [facility] [address] [place] [address] [place] [address] [facility] [address] [place] [address] Social History Tobacco Use Types Packs/Day Years Used Date Smoking Tobacco: Never Assessed Comments Unknown Sex and Gender Information Value Date Recorded Sex Assigned at Not on file 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 Gender Identity Not on file Sexual Orientation Not on file documented as of this encounter Plan of Treatment Not on file documented as of this encounter Procedures Procedure Name Priority Date/Time Associated Diagnosis Comments GLUCOSE POC Routine 02/14/2017 7:22 AM CDT documented in this encounter Results * Glucose POC (02/14/2017 7:22 AM CDT) Glucose, POC 144 70 - 199 mg/dL [facility] Blood specimen (specimen) 02/14/2017 7:22 AM CDT 02/14/2017 7:22 AM CDT us Coleen Samuels MD POINT OF CARE [place] [address] [address] Department [place] [address] documented in this encounter Visit Diagnoses Not on filedocumented in this encounter Care Teams Early Breastfeeding Care Specialist Relationship Specialty Start Date End Date Jey Klein PA [address] [place] [address] PCP - General 02/14/17 02/17/17 Rojas Fitzpatrick MD [address] [place] [address] PCP - General 02/18/17 02/22/17 Jey Klein PA [address] [place] [address] PCP - General 02/23/17 04/13/18 documented as of this encounter
--- OUTSIDE RECORDS SUMMARY | 2024-10-07 00:56 | XMS_ITS | Encounter Summary ---
Author Organization [facility] Healthcare Address [address] [place] [address] Care Team Providers Care Fish House Worker Name Role Phone No, Physician Primary Care Provider Jey Klein Primary Care Provider + Rojas Fitzpatrick MD Primary Care Provider [phone] Jey Klein Primary Care Provider + Encounter Details Date Type Department Care Team (Late st Contact Info) Description 02/13/2017 Orders Only [facility] [phone] Marek Banda Social History Tobacco Use Types Packs/Day Years Used Date Smoking Tobacco: Never Assessed Comments Unknown Sex and Gender Information Value Date Recorded Sex Assigned at Not on file 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 Gender Identity Not on file Sexual Orientation Not on file documented as of this encounter Plan of Treatment Not on file documented as of this encounter Procedures Procedure Name Priority Date/Time Associated Diagnosis Comments COMPREHENSIVE METABOLIC PANEL Routine 02/13/2017 5:15 AM CDT documented in this encounter Results * (ABNORMAL) Comprehensive metabolic panel (02/13/2017 5:15 AM CDT) Sodium 135 135 - 145 mmol/L [facility] Potassium, pl 4.2 3.5 - 5.1 mmol/L [facility] CO2 28 22 - 32 mmol/L [facility] BUN 15 8 - 24 mg/dL [facility] Glucose 242(H) 70 - 199 mg/dL [facility] Creatinine 1.01 0.60 - 1.30 mg/dL [facility] Calcium 8.7 8.4 - 10.5 mg/dL [facility] Chloride 96(L) 100 - 114 mmol/L [facility] Albumin 2.8(L) 3.2 - 4.8 g/dL [facility] AST 129(H) 7 - 40 Units/L [facility] ALT 158(H) 1 - 45 Units/L [facility] Alk phos 230(H) 30 - 110 Units/L [facility] Bilirubin, total 1.40(H) 0.10 - 1.30 mg/dL [facility] Protein, pl 5.9(L) 6.0 - 8.3 g/dL [facility] Anion gap 15 8 - 16 mmol/L [facility] Blood specimen (specimen) 02/13/2017 5:15 AM CDT 02/13/2017 5:39 AM CDT Marek Banda LAB BLOOD ORDERABLES Final Res ult [facility] [address] Department [place] [address] documented in this encounter Visit Diagnoses Not on filedocumented in this encounter Care Teams Fish House Worker Relationship Specialty Start Date End Date No, Physician PCP - General 02/11/17 02/13/17 Jey Klein PA [address] [place] [address] PCP - General 02/14/17 02/17/17 Rojas Fitzpatrick MD [address] [place] [address] [id number] PCP - General 02/18/17 02/22/17 Jey Klein PA [address] [place] [address] PCP - General 02/23/17 04/13/18 documented as of this encounter
--- OUTSIDE RECORDS SUMMARY | 2024-10-07 00:56 | XMS_ITS | Encounter Summary ---
Author Organization [facility] Address [address] [facility] [address] [place] [address] Care Team Providers Care Beauty Consultant Name Role Phone No, Physician Primary Care Provider [phone] Jey Klein Primary Care Provider + Rojas Fitzpatrick MD Primary Care Provider [phone] Jey Klein Primary Care Provider + Encounter Details Date Type Department Care Team (Late st Contact Info) Description 02/13/2017 Orders Only Hospitalists [address] [facility] [address] [place] [address] [place] [address] 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 Gender Identity Not on file Sexual Orientation Not on file documented as of this encounter Plan of Treatment Not on file documented as of this encounter Procedures Procedure Name Priority Date/Time Associated Diagnosis Comments GLUCOSE POC Routine 02/13/2017 8:55 PM CDT documented in this encounter Results * (ABNORMAL) Glucose POC (02/13/2017 8:55 PM CDT) Glucose, POC 375(H) 70 - 199 mg/dL [facility] Blood specimen (specimen) 02/13/2017 8:55 PM CDT 02/13/2017 8:55 PM CDT us oCleen Samuels MD POINT OF CARE TEST ORDERA BLES Final Result [facility] [address] Department [place] [address] documented in this encounter Visit Diagnoses Not on filedocumented in this encounter Care Teams Beauty Consultant Relationship Specialty Start Date End Date No, Physician PCP - General 02/11/17 02/13/17 Jey Klein PA [address] [place] [address] PCP - General 02/14/17 02/17/17 [place] [address] [place] [address] PCP - General 02/18/17 02/22/17 Jey Klein PA [address] [place] [address] PCP - General 02/23/17 04/13/18 documented as of this encounter
--- OUTSIDE RECORDS SUMMARY | 2024-10-07 00:56 | XMS_ITS | Encounter Summary ---
Author Organization [facility] Healthcare Address [address] [place] [address] Care Team Providers Care Nurse Auditor Name Role Phone No, Physician Primary Care Provider [phone] Jey Klein Primary Care Provider + Rjoas Fitzpatrick MD Primary Care Provider [phone] Jey Klein Primary Care Provider + Encounter Details Date Type Department Care Team (Late st Contact Info) Description 02/11/2017 Orders Only [facility] [phone] Krish Nguyen, [address] [facility] [place] [address] Social History Tobacco Use Types Packs/Day Years Used Date Smoking Tobacco: Never Assessed Comments Unknown Sex and Gender Information Value Date Recorded Sex Assigned at Not on file 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 Gender Identity Not on file Sexual Orientation Not on file documented as of this encounter Plan of Treatment Not on file documented as of this encounter Procedures Procedure Name Priority Date/Time Associated Diagnosis Comments CBC WITH AUTO DIFFERENTIAL STAT 02/11/2017 11:25 PM CDT documented in this encounter Results * (ABNORMAL) CBC with auto differential (02/11/2017 11:25 PM CDT) WBC 6.77 3.80 - 9.90 K/cumm [facility] RBC 3.60(L) 3.90 - 5.20 M/cumm [facility] Hgb 9.6(L) 11.9 - 15.5 g/dL [facility] Hct 30.9(L) 35.6 - 45.5 % [facility] MCV 85.8 81.3 - 96.4 fL [facility] MCH 26.7(L) 27.1 - 33.3 pg [facility] MCHC 31.1(L) 32.3 - 35.7 g/dL [facility] RDW CV 15.2(H) 11.1 - 14.9 % [facility] RDW SD 47.4 35.7 - 48.1 fL [facility] Plt 361 150 - 400 K/cumm [facility] MPV 9.5 9.1 - 12.3 fL [facility] NRBC 0.0 0.0 - 0.2 % [facility] NRBC abs 0.00 0.00 - 0.01 K/cumm [facility] Blood specimen (specimen) 02/11/2017 11:25 PM CDT 02/12/2017 12:52 AM CDT us Krish Nguyen DO LAB BLOOD ORDERABLES Final Res ult [facility] [address] [address] Department of [place] [address] documented in this encounter Visit Diagnoses Not on filedocumented in this encounter Care Teams Nurse Auditor Relationship Specialty Start Date End Date No, Physician PCP - General 02/11/17 02/13/17 Jey Klein PA [address] [place] [address] PCP - General 02/14/17 02/17/17 [place] [address] [place] [address] PCP - General 02/18/17 02/22/17 Jey Klein PA [address] [place] [address] PCP - General 02/23/17 04/13/18 documented as of this encounter
--- OUTSIDE RECORDS SUMMARY | 2024-10-07 00:56 | XMS_ITS | Encounter Summary ---
Author Organization [facility] Medical Group Address [address] [facility] [address] [place] [address] Care Team Providers Care Bracelet And Brooch Maker Name Role Phone No, Physician Primary Care Provider [phone] Jey Klein Primary Care Provider + Rojas Fitzpatrick MD Primary Care Provider [phone] Jey Klein Primary Care Provider + Encounter Details Date Type Department Care Team (Late st Contact Info) Description 02/12/2017 Orders Only Hospitalists [address] [facility] [address] [place] [address] [place] [address] [facility] [address] [place] [address] Social History Tobacco Use Types Packs/Day Years Used Date Smoking Tobacco: Never Assessed Comments Unknown Sex and Gender Information Value Date Recorded Sex Assigned at Not on file 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 Gender Identity Not on file Sexual Orientation Not on file documented as of this encounter Plan of Treatment Not on file documented as of this encounter Procedures Procedure Name Priority Date/Time Associated Diagnosis Comments GLUCOSE POC Routine 02/12/2017 9:07 AM CDT documented in this encounter Results * Glucose POC (02/12/2017 9:07 AM CDT) Glucose, POC 123 70 - 199 mg/dL [facility] Blood specimen (specimen) 02/12/2017 9:07 AM CDT 02/12/2017 9:07 AM CDT us Coleen Samuels MD POINT OF CARE TEST ORDERA BLES Final Result [facility] [address] Department [place] [address] documented in this encounter Visit Diagnoses Not on filedocumented in this encounter Care Teams Bracelet And Brooch Maker Relationship Specialty Start Date End Date No, Physician PCP - General 02/11/17 02/13/17 Jey Klein PA [address] [place] [address] PCP - General 02/14/17 02/17/17 Rojas Fitzpatrick MD [address] [place] [address] PCP - General 02/18/17 02/22/17 Jey Klein PA [address] [place] [address] PCP - General 02/23/17 04/13/18 documented as of this encounter
--- OUTSIDE RECORDS SUMMARY | 2024-10-07 00:56 | XMS_ITS | Encounter Summary ---
Author Organization [facility] Healthcare Address [address] [place] [address] Care Team Providers Care Network Security Architect Name Role Phone No, Physician Primary Care Provider [phone] Jey Klein Primary Care Provider + Rojas Fitzpatrick MD Primary Care Provider [phone] Jey Klein Primary Care Provider + Encounter Details Date Type Department Care Team (Late st Contact Info) Description 02/12/2017 Orders Only [facility] [phone] Marek Banda Social History Tobacco Use Types Packs/Day Years Used Date Smoking Tobacco: Never Assessed Comments Unknown Sex and Gender Information Value Date Recorded Sex Assigned at Not on file 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 Glycemia controlled ??>8% ?? Hyperglycemia, additional action recommended Ameena Immunochemical Method Current interpretive data was last revised on 2016 Testing performed by: [facility], [place] [address] Estimated Average Glucose 252 mg/dL [facility] Comment:Testing performed by : [facility], [place] [address] Blood specimen (specimen) 02/12/2017 1:38 PM CDT 02/13/2017 10:36 AM CDT us Marek Banda LAB BLOOD ORDERABLES Final Res ult [facility] [address] Department [place] [address] documented in this encounter Visit Diagnoses Not on filedocumented in this encounter Care Teams Network Security Architect Relationship Specialty Start Date End Date No, Physician PCP - General 02/11/17 02/13/17 Jey Klein PA [address] [place] [address] PCP - General 02/14/17 02/17/17 Rojas Fitzpatrick MD [address] [place] [address] PCP - General 02/18/17 02/22/17 Jey Klein PA [address] [place] [address] PCP - General 02/23/17 04/13/18 documented as of this encounter
--- OUTSIDE RECORDS SUMMARY | 2024-10-07 00:56 | XMS_ITS | Encounter Summary ---
Author Organization [facility] Healthcare Address [address] [place] [address] Care Team Providers Care Airconditioning Drafting Officer Name Role Phone No, Physician Primary Care Provider [phone] Jey Klein Primary Care Provider + Rojas Fitzpatrick MD Primary Care Provider [phone] Jey Klein Primary Care Provider + Encounter Details Date Type Department Care Team (Late st Contact Info) Description 02/12/2017 Orders Only [facility] [phone] Krish Nguyen, [address] [facility] [place] [address] Social History Tobacco Use Types Packs/Day Years Used Date Smoking Tobacco: Never Assessed Comments Unknown Sex and Gender Information Value Date Recorded Sex Assigned at Not on file 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 Gender Identity Not on file Sexual Orientation Not on file documented as of this encounter Plan of Treatment Not on file documented as of this encounter Procedures Procedure Name Priority Date/Time Associated Diagnosis Comments URINALYSIS AND REFLEX TO MICROSCOPIC AND CULTURE STAT 02/12/2017 12:50 AM CDT documented in this encounter Results * (ABNORMAL) Urinalysis reflex to microscopic and culture (02/12/2017 12:50 AM CDT) Color, ur Yellow [facility] Clarity, ur Clear [facility] Specific gravity, ur 1.011 1.001 - 1.033 [facility] pH, ur 5.0 5.0 - 8.0 [facility] Protein, ur ql Negative Negative [facility] Glucose, ur ql 1+(A) Negative [facility] Ketones, ur Negative Negative [facility] Bilirubin, ur Negative Negative [facility] Blood, ur 1+(A) Negative [facility] Urobilinogen, ur 2.0(A) <2.0 [facility] Nitrites, ur Negative Negative [facility] Leukocyte esterase, ur Negative Negative [facility] Urine/Blood 02/12/2017 12:5 0 AM CDT 02/12/2017 12:50 AM CDT us Krish Nguyen DO LAB MICROBIOLOGY - GENERAL ORD ERABLES Final Result [facility] [address] [address] [place] [address] documented in this encounter Visit Diagnoses Not on filedocumented in this encounter Care Teams Airconditioning Drafting Officer Relationship Specialty Start Date End Date No, Physician PCP - General 02/11/17 02/13/17 Jey Klein PA [address] [place] [address] PCP - General 02/14/17 02/17/17 Rojas Fitzpatrick MD [address] [place] [address] PCP - General 02/18/17 02/22/17 Jey Klein PA [address] [place] [address] 46[address] PCP - General 02/23/17 04/13/18 documented as of this encounter
--- OUTSIDE RECORDS SUMMARY | 2024-10-07 00:56 | XMS_ITS | Encounter Summary ---
Author Organization [facility] Healthcare Address [address] [place] [address] Care Team Providers Care Dowel Pointer Name Role Phone No, Physician Primary Care Provider [phone] Jey Klein Primary Care Provider + Rojas Fitzpatrick MD Primary Care Provider [phone] Jey Klein Primary Care Provider + Encounter Details Date Type Department Care Team (Late st Contact Info) Description 02/13/2017 Orders Only [facility] Inter[facility] [phone] Marek Banda Social History Tobacco Use Types Packs/Day Years Used Date Smoking Tobacco: Never Assessed Comments Unknown Sex and Gender Information Value Date Recorded Sex Assigned at Not on file 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 60 - 89 mL/min/1.73m2 Mildly to moderately decreased ?45 - 59 mL/min/1.73m2 Moderately to severely decreased ??30 - 44 mL/min/1.73m2 Severely decreased ?15 - 29 mL/min/1.73m2 Kidney Failure ?< 15 ??mL/min/1.73m2 *Relative to young adult level If -Ivorian multiply value by 1.16. Estimated glomerular filtration [...] was last reviewed 2016. Blood specimen (specimen) 02/13/2017 5:15 AM CDT 02/13/2017 5:39 AM CDT Marek Banda LAB BLOOD ORDERABLES Final Res ult Performing Organization Address City/State/[facility] Co de Phone Number [facility] [address] Department of Laboratories [place], [place] [id number] documented in this encounter Visit Diagnoses Not on filedocumented in this encounter Care Teams Dowel Pointer Relationship Specialty Start Date End Date No, Physician PCP - General 02/11/17 02/13/17 Jey Klein PA [address] [place] [address] PCP - General 02/14/17 02/17/17 Rojas Fitzpatrick MD [address] [place] [address] PCP - General 02/18/17 02/22/17 Jey Klein PA [address] [place] [address] PCP - General 02/23/17 04/13/18 documented as of this encounter
--- OUTSIDE RECORDS SUMMARY | 2024-10-07 00:56 | XMS_ITS | Encounter Summary ---
Author Organization [facility] Healthcare Address [address] [place] [address] Care Team Providers Care Payroll Accounting Manager Name Role Phone No, Physician Primary Care Provider [phone] Jey Klein Primary Care Provider + Rojas Fitzpatrick MD Primary Care Provider [phone] Jey Klein Primary Care Provider + Encounter Details Date Type Department Care Team (Late st Contact Info) Description 02/12/2017 Orders Only [facility] Interim [phone] Krish Nguyen, [address] [facility] [place] [address] Social History Tobacco Use Types Packs/Day Years Used Date Smoking Tobacco: Never Assessed Comments Unknown Sex and Gender Information Value Date Recorded Sex Assigned at Not on file 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 Gender Identity Not on file Sexual Orientation Not on file documented as of this encounter Plan of Treatment Not on file documented as of this encounter Procedures Procedure Name Priority Date/Time Associated Diagnosis Comments URINALYSIS, MICROSCOPIC ONLY STAT 02/12/2017 12:50 AM CDT documented in this encounter Results * (ABNORMAL) Urinalysis, microscopic (02/12/2017 12:50 AM CDT) RBC, ur 1 0 - 3 /HPF [facility] WBC, ur 1 0 - 5 /HPF [facility] Bacteria, ur Trace [facility] Epithelial cells, renal, ur 0 0 - 0 /HPF [facility] Epithelial cells, squamous, ur 3 /LPF [facility] Mucus, ur Present [facility] Hyaline casts, ur 2(H) 0 - 0 /LPF [facility] Urine/Blood 02/12/2017 12:5 0 AM CDT 02/12/2017 12:50 AM CDT us Krish Nguyen DO LAB URINE ORDERABLES Final Res ult [facility] [address] Department [place] [address] documented in this encounter Visit Diagnoses Not on filedocumented in this encounter Care Teams Payroll Accounting Manager Relationship Specialty Start Date End Date No, Physician PCP - General 02/11/17 02/13/17 Jey Klein PA [address] [place] [address] PCP - General 02/14/17 02/17/17 Rojas Fitzpatrick MD [address] [place] [address] PCP - General 02/18/17 02/22/17 Jey Klein PA [address] [place] [address] PCP - General 02/23/17 04/13/18 documented as of this encounter
--- OUTSIDE RECORDS SUMMARY | 2024-10-07 00:56 | XMS_ITS | Encounter Summary ---
Author Organization [facility] Healthcare Address [address] [place] [address] Care Team Providers Care Rehab Nurse Name Role Phone No, Physician Primary Care Provider [phone] Jey Klein Primary Care Provider + Rojas Fitzpatrick MD Primary Care Provider [phone] Jey Klein Primary Care Provider + Encounter Details Date Type Department Care Team (Late st Contact Info) Description 02/13/2017 Orders Only [facility] Inter[facility] [phone] Marek Banda Social History Tobacco Use Types Packs/Day Years Used Date Smoking Tobacco: Never Assessed Comments Unknown Sex and Gender Information Value Date Recorded Sex Assigned at Not on file 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 Gender Identity Not on file Sexual Orientation Not on file documented as of this encounter Plan of Treatment Not on file documented as of this encounter Procedures Procedure Name Priority Date/Time Associated Diagnosis Comments MAGNESIUM Routine 02/13/2017 5:15 AM CDT documented in this encounter Results * Magnesium (02/13/2017 5:15 AM CDT) Magnesium 1.8 1.8 - 2.6 mg/dL [facility] Blood specimen (specimen) 02/13/2017 5:15 AM CDT 02/13/2017 5:39 AM CDT us Marek Banda LAB BLOOD ORDERABLES Final Res ult [facility] [id number] [address] Department [place] [address] documented in this encounter Visit Diagnoses Not on filedocumented in this encounter Care Teams Rehab Nurse Relationship Specialty Start Date End Date No, Physician PCP - General 02/11/17 02/13/17 Jey Klein PA [address] [place] [id number] PCP - General 02/14/17 02/17/17 Rojas Fitzpatrick MD [address] [place] [address] PCP - General 02/18/17 02/22/17 Jey Klein PA [address] [place] [address] PCP - General 02/23/17 04/13/18 documented as of this encounter
--- OUTSIDE RECORDS SUMMARY | 2024-10-07 00:56 | XMS_ITS | Encounter Summary ---
Author Organization [facility] Healthcare Address [address] [place] [address] Care Team Providers Care Direct Marketing Specialist Name Role Phone No, Physician Primary Care Provider [phone] Jey Klein Primary Care Provider + Encounter Details Date Type Department Care Team (Latest Contact Info) Description 02/12/2017 9:00 AM CDT - 02/14/2017 7:13 PM CDT Hospital Encounter [facility] [address] [place] [address] Oly Samuels MD [address] [place] [address] Discharge Disposition: Discharge to home or self care Social History Tobacco Use Types Packs/Day Years Used Date Smoking Tobacco: Never Assessed Comments Unknown Sex and Gender Information Value Date Recorded Sex Assigned at Not on file 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 Gender Identity Not on file Sexual Orientation Not on file documented as of this encounter Last Filed Vital Signs Vital Sign Reading Time Taken Comments Blood Pressure 130/101 02/14/2017 5:54 PM CDT Pulse 86 02/14/2017 5:54 PM CDT Temperature - - Respiratory Rate - - Oxygen Saturation - - Inhaled Oxygen Concentration - - Weight 111.6 kg (246 lb 0.5 oz) 02/12/2017 9:25 AM CDT Height 167.6 cm (5' 5.98 ) 02/12/2017 9:25 AM CD T Body Mass Index 39.73 02/12/2017 9:25 AM CDT documented in this encounter Discharge Disposition Disposition Code Departure Means Destination Discharge to home or self care documented in this encounter Consult Notes * Miscellaneous, Not In File - 02/12/2017 5:00 AM CDT CONSULTATION REPORTPatient: DAVIAN RODRIGUEZRN: [id number] Service Date: 02/12/2017Account: [id number] Room No: 910-02DOB: 1960 Patient Type: IPAttend.: Oly Samuels M.D. Admit Date: 02/11/2017Consult.: Jasper Mcfarland M.D. Disch. Date: 02/14/2017CARDIOLOGY CONSULTATIONCONSULTING PHYSICIANSAISHA Crabtree FOR CONSULTATION1. Congestive heart failure.2. Cardiac arrhythmia.PHYSICIAN REQUESTING CONSULTER physician and primarycare team under Dr. Oly Samuels.HISTORY OF PRESENT ILLNESSMrs. Loretta Rodriguez is a 56-year-old female who was born on 1960.She presented to emergency room at [facility] on February, at around 2154 hours. The respiratoryrate at that time was elevatedto 30, blood pressure 120/74, heart rate was anywhere from 90 to 110,pulseox was better than 91% on room air. We were asked to consult.PAST MEDICAL HISTORYIncludes:1. Hypertension.2. CHF.3. Atrial fibrillation.4. Diabetes mellitus.5. Insomnia.ALLERGIESSULFA.HOME MEDICATIONS1. Ranitidine 150 twice a day.2. Nortriptyline 10 mg at bedtime.3. Oxybutynin 5 mg daily.4. Coreg 25 mg twice a day.5. Lasix 40 mg daily.6. Levofloxacin 500 mg.7. Lisinopril 10 mg daily.8. Januvia 100 mg daily.9. Eliquis 500 mg twice a day.10. Humulin insulin 18 units in the morning and 10 units at night, it comesas 70/30.FAMILY HISTORYSignificant for diabetes and hypertension.SOCIAL HISTORYDenies illicit drug use. Denies noncompliance with medications. Tells usthat likes pickles but tries to watch most of the fluid that contains salt.REVIEW OF SYSTEMSTells her shortness of breath was getting worse over the last couple of daysprior to admission and had PND and orthopnea in addition to that.She denied chest pain. She felt her heart rate was skipping.Neuro: Denies any focal weakness.Psychiatric: Denies feeling significantly anxious or depressed.Thought her ankles on both sides were swollen, more maybe on theright thanon the left.Other 10 review of systems unremarkable.PHYSICAL EXAMINATIONEyes: No scleral icterus or erythema.ENT: Mouth: Mucosa moist.Lungs: Decreased sounds in both bases.Heart Exam: Irregularly irregular rhythm. Systolic murmur at the apexradiating to axilla.Abdomen: Soft, obese.Extremities: Bilateral pretibial edema mild to moderate, both sidesessentially the same.Vascular: No carotid bruit. Positive JVD prominence present.On admission CBC showed white count of 6.8, H and H 9.6 and 30.9, plateletsare 361. Sodium 131, potassium 3.2, glucose 176, albumin 3.1. Transaminaseshow AST of 128, ALT of 184, alkaline phosphorus 248, bilirubin 1.7.Troponin was within normal limits on admission measuring 0.03. UA showedprotein negative, glucose positive, blood positive, urobilinogen positive.Telemetry shows atrial fibrillation.IMPRESSION AND RECOMMENDATIONS1. Atrial fibrillation with high ventricular rates. Will use IV diltiazem.Continue Eliquis. Patient may benefit from synchronized cardioversion andthat could be arranged as outpatient if needed.2. Congestive heart failure.[place] Heart Association class III symptomsnow.3. The patient apparently has diastolic left ventricular dysfunction. Willreview officerecords for ejection fraction.4. Hypertension. Reinforce compliance with medications.5. Obesity. Patient's BMI is 39. She would benefit from losing weightwhich would better arrhythmia control, too.Thank you very kindly for allowing me to participate in this patient's care.Electronically Authenticated by:Jasper Mcfarland MD On 02/16/2017 04:44 PM CDT Jasper Mcfarland M.D./john ZF: 02/12/2017 11:58TD: 02/13/2017 10:35 documented in this encounter Plan of Treatment Not on file documented as of this encounter Procedures Procedure Name Priority Date/Time Associated Diagnosis Comments XR ABDOMEN AP 1V Routine 02/12/2017 6:50 AM CDT XR CHEST 1 VIEW Routine 02/12/2017 6:50 AM CDT documented in this encounter Results * XR Chest 1 Vw (02/12/2017 6:50 AM CDT) Anatomical Region Laterality Modality Body, Chest N/A Radiographic Elena ging 02/12/2017 6:50 AM CDT Narrative 02/12/2017 6:50 AM CDT DATE OF EXAM: ??May ??2016 ??1:50AM Acc#: ??[id number] ??EDX [id number] - XR Chest Portable ?? DIAGNOSIS: ??EDEMA CLINICAL HISTORY: ?? Dyspnea RESULT: EXAM: Portable chest DATE: 02/12/2017 1:50 AM CLINICAL HISTORY: Shortness of breath, chest pain FINDINGS: A single portable AP view of the chest was submitted for review. No prior study is available for comparison. The lungs are clear. The pulmonary vasculature is normal. There is no evidence of pneumothorax or pleural effusion on this single view exam. The heart is enlarged. The aortic contour is normal. IMPRESSION: CARDIOMEGALY. Electronically signed by: Georgi Barajas M.D. ? PANEL EDGE PAINTER: ??PSC TRANSCRIBE DATE/TIME: ??May ??2016 10:33A RADIOLOGIST: ??GEORGI BARAJAS M.D. ??READ ON: ??May ??2016 10:37A ORDERING DR: ISABELL WRIGHT D.O. THIS DOCUMENT HAS BEEN ELECTRONICALLY SIGNED BY: ??GEORGI BARAJAS M.D. ??ON: ??May ??2016 10:33A Attending: ??ELIZABETH, ??OLY Requesting: ??ADRIANA, ??ISABELL Requesting Fax: ??-- Attending Fax: ??-- Attending ID: ??[id number] Requesting ID: ??[id number] Report To 1 ID: ??[id number] Report To 1 Name: ??ELIZABETH, ??OLY Report To 1 FAX: ??-- Report To 2 ID: ?? Report To 2 Name: ??, ?? Report To 2 FAX: ??-- NextGen Order #: ?? Procedure Note Miscellaneous, Not In File / Provider, MD Nica - 03/05/2017 DATE OF EXAM: Feb 12 2017 1:50AM Acc#: [id number] EDX 0031 - XR Chest Portable DIAGNOSIS: EDEMA CLINICAL HISTORY: Dyspnea RESULT: EXAM: Portable chest DATE: 02/12/2017 1:50 AM CLINICAL HISTORY: Shortness of breath, chest pain FINDINGS: A single portable AP view of the chest was submitted for review. No prior study is available for comparison. The lungs are clear. The pulmonary vasculature is normal. There is no evidence of pneumothorax or pleural effusion on this single view exam. The heart is enlarged. The aortic contour is normal. IMPRESSION: CARDIOMEGALY. Electronically signed by: Georgi Barajas M.D. PANEL EDGE PAINTER: PSC TRANSCRIBE DATE/TIME: Feb 12 2017 10:33A RADIOLOGIST: GEORGI BARAJAS M.D. READ ON: Feb 12 2017 10:37A ORDERING DR: ISABELL WRIGHT D.O. THIS DOCUMENT HAS BEEN ELECTRONICALLY SIGNED BY: GEORGI BARAJAS M.D. ON: Feb 12 2017 10:33A Attending: OLY JOHNSON Requesting: ISABELL WRIGHT Requesting Fax: -- Attending Fax: -- Attending ID: [id number] Requesting ID: [id number] Report To 1 ID: [id number] Report To 1 Name: OLY JOHNOSN Report To 1 FAX: -- Report To 2 ID: Report To 2 Name: , Report To 2 FAX: -- NextGen Order #: us Not In File Miscellaneous IMG XR PROCEDURES Ayanna l Result * XR Abdomen AP 1V (02/12/2017 6:50 AM CDT) Anatomical Region Laterality Modality Body N/A Radiographic Elena ging 02/12/2017 6:50 AM CDT Narrative 02/12/2017 6:50 AM CDT DATE OF EXAM: ??May ??2016 ??1:50AM Acc#: ??[id number] ??EDX [id number] - XR KUB Portable ?? DIAGNOSIS: ??EDEMA CLINICAL HISTORY: ?? ABDOMINAL PAIN RESULT: EXAM: Portable KUB DATE: 02/12/2017 1:50 AM CLINICAL HISTORY: Abdominal pain and edema FINDINGS: Portable supine AP views of the abdomen obtained at 0141 hours was submitted for review. ??No prior study is available for comparison. Stool is present in the right colon. ??The visible bowel gas pattern is unremarkable. There is no evidence of bowel loop dilatation. No pathologic calcifications are identified. ??Right upper quadrant surgical clips are likely due to prior cholecystectomy. ??There is no evidence of free air on this single supine exam. ??The visible lung bases are clear. ??The visible bones are unremarkable. IMPRESSION: No radiographic evidence of obstruction. Electronically signed by: Georgi Barajas M.D. ? PANEL EDGE PAINTER: ??[facility] TRANSCRIBE DATE/TIME: ??May ??2016 10:36A RADIOLOGIST: ??GEORGI BARAJAS M.D. ??READ ON: ??May ??2016 10:41A ORDERING DR: ISABELL WRIGHT D.O. THIS DOCUMENT HAS BEEN ELECTRONICALLY SIGNED BY: ??SLY Johnston, GEORGI ??ON: ??May ??2016 10:36A Attending: ??ELIZABETH, ??OLY Requesting: ??ADRIANA, ??ISABELL Requesting Fax: ??-- Attending Fax: ??-- Attending ID: ??[id number] Requesting ID: ??[id number] Report To 1 ID: ??[id number] Report To 1 Name: ??LEUKING, ??OLY Report To 1 FAX: ??-- Report To 2 ID: ?? Report To 2 Name: ??, ?? Report To 2 FAX: ??-- NextGen Order #: ?? Procedure Note Miscellaneous, Not In File / Provider, MD Nica - 03/05/2017 DATE OF EXAM: Feb 12 2017 1:50AM Acc#: [id number] EDX 0393 - XR KUB Portable DIAGNOSIS: EDEMA CLINICAL HISTORY: ABDOMINAL PAIN RESULT: EXAM: Portable KUB DATE: 02/12/2017 1:50 AM CLINICAL HISTORY: Abdominal pain and edema FINDINGS: Portable supine AP views of the abdomen obtained at 0141 hours was submitted for review. No prior study is available for comparison. Stool is present in the right colon. The visible bowel gas pattern is unremarkable. There is no evidence of bowel loop dilatation. No pathologic calcifications are identified. Right upper quadrant surgical clips are likely due to prior cholecystectomy. There is no evidence of free air on this single supine exam. The visible lung bases are clear. The visible bones are unremarkable. IMPRESSION: No radiographic evidence of obstruction. Electronically signed by: Georgi Barajas M.D. PANEL EDGE PAINTER: [facility] TRANSCRIBE DATE/TIME: Feb 12 2017 10:36A RADIOLOGIST: GEORGI BARAJAS M.D. READ ON: Feb 12 2017 10:41A ORDERING DR: ISABELL WRIGHT D.O. THIS DOCUMENT HAS BEEN ELECTRONICALLY SIGNED BY: GEORGI BARAJAS M.D. ON: Feb 12 2017 10:36A Attending: OLY JOHNSON Requesting: ISABELL WRIGHT Requesting Fax: -- Attending Fax: -- Attending ID: [id number] Requesting ID: [id number] Report To 1 ID: [id number] Report To 1 Name: OLY JOHNSON Report To 1 FAX: -- Report To 2 ID: Report To 2 Name: , Report To 2 FAX: -- NextGen Order #: us Not In File Miscellaneous IMG XR PROCEDURES Ayanna l Result documented in this encounter Visit Diagnoses Not on filedocumented in this encounter Care Teams Direct Marketing Specialist Relationship Specialty Start Date End Date No, Physician PCP - General 02/11/17 02/13/17 Jey Klein PA [address] [place] [address] PCP - General 02/14/17 02/17/17 documented as of this encounter
--- OUTSIDE RECORDS SUMMARY | 2024-10-07 00:56 | XMS_ITS | Encounter Summary ---
Author Organization [facility] Address [address] [place] [address] Care Team Providers Care Netting Inspector Name Role Phone No, Physician Primary Care Provider [phone] Jey Klein Primary Care Provider + Rojas Fitzpatrick MD Primary Care Provider [phone] Jey Klein Primary Care Provider + Encounter Details Date Type Department Care Team (Late st Contact Info) Description 02/12/2017 Orders Only Hospitalists [address] [facility] [address] [place] [address] [place] [address] [facility] [address] [place] [address] Social History Tobacco Use Types Packs/Day Years Used Date Smoking Tobacco: Never Assessed Comments Unknown Sex and Gender Information Value Date Recorded Sex Assigned at Not on file 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 Gender Identity Not on file Sexual Orientation Not on file documented as of this encounter Plan of Treatment Not on file documented as of this encounter Procedures Procedure Name Priority Date/Time Associated Diagnosis Comments GLUCOSE POC Routine 02/12/2017 1:40 PM CDT documented in this encounter Results * (ABNORMAL) Glucose POC (02/12/2017 1:40 PM CDT) Glucose, POC 215(H) 70 - 199 mg/dL [facility] Blood specimen (specimen) 02/12/2017 1:40 PM CDT 02/12/2017 1:40 PM CDT us Coleen Samuels MD POINT OF CARE TEST ORDERA BLES Final Result [facility] [address] Department [place] [address] documented in this encounter Visit Diagnoses Not on filedocumented in this encounter Care Teams Netting Inspector Relationship Specialty Start Date End Date No, Physician PCP - General 02/11/17 02/13/17 Jey Klein PA [address] [place] [id number] PCP - General 02/14/17 02/17/17 [place] [address] [place] [address] PCP - General 02/18/17 02/22/17 Jey Klein PA [address] [place] [address] PCP - General 02/23/17 04/13/18 documented as of this encounter
--- OUTSIDE RECORDS SUMMARY | 2024-10-07 00:56 | XMS_ITS | Encounter Summary ---
Author Organization [facility] Healthcare Address [address] [place] [address] Care Team Providers Care Machine Heel Sprayer Name Role Phone No, Physician Primary Care Provider [phone] Jey Klein Primary Care Provider + Rojas Fitzpatrick MD Primary Care Provider [phone] Jey Klein Primary Care Provider + Encounter Details Date Type Department Care Team (Late st Contact Info) Description 02/13/2017 Orders Only [facility] [phone] Marek Banda Social History Tobacco Use Types Packs/Day Years Used Date Smoking Tobacco: Never Assessed Comments Unknown Sex and Gender Information Value Date Recorded Sex Assigned at Not on file 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 Gender Identity Not on file Sexual Orientation Not on file documented as of this encounter Plan of Treatment Not on file documented as of this encounter Procedures Procedure Name Priority Date/Time Associated Diagnosis Comments HEPATITIS PANEL, ACUTE Routine 02/13/2017 1:31 PM CDT documented in this encounter Results * (ABNORMAL) Hepatitis panel, acute (02/13/2017 1:31 PM CDT) Hep A IgM Negative Negative [facility] Hep B core IgM Negative Negative [facility] Hep C Ab Positive(A) Negative [facility] Comment: Result called to and read back by Miriam Kc 02/13/2017 14:50:32 CDT/sdr Initial Positive result should be confirmed by PCR testing. HepBsAg Negative Negative [facility] Blood specimen (specimen) 02/13/2017 1:31 PM CDT 02/13/2017 1:49 PM CDT us Marek Banda LAB MICROBIOLOGY - GENERAL ORD ERABLES Final Result [facility] JOCELINE [address] Department [place] [address] documented in this encounter Visit Diagnoses Not on filedocumented in this encounter Care Teams Machine Heel Sprayer Relationship Specialty Start Date End Date No, Physician PCP - General 02/11/17 02/13/17 Jey Klein PA [facility] [place] [address] PCP - General 02/14/17 02/17/17 [place] [address] [place] [address] PCP - General 02/18/17 02/22/17 Jey Klein PA [address] [place] [address] PCP - General 02/23/17 04/13/18 documented as of this encounter
--- OUTSIDE RECORDS SUMMARY | 2024-10-07 00:56 | XMS_ITS | Encounter Summary ---
Author Organization [facility] Healthcare Address [address] [place] [address] Care Team Providers Care Gis Instructor Name Role Phone No, Physician Primary Care Provider [phone] Jey Klein Primary Care Provider + Rojas Fitzpatrick MD Primary Care Provider [phone] Jey Klein Primary Care Provider + Encounter Details Date Type Department Care Team (Late st Contact Info) Description 02/12/2017 Orders Only [facility] [phone] Krish Nguyen, [address] [facility] [place] [address] Social History Tobacco Use Types Packs/Day Years Used Date Smoking Tobacco: Never Assessed Comments Unknown Sex and Gender Information Value Date Recorded Sex Assigned at Not on file 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 Gender Identity Not on file Sexual Orientation Not on file documented as of this encounter Plan of Treatment Not on file documented as of this encounter Procedures Procedure Name Priority Date/Time Associated Diagnosis Comments GLUCOSE POC Routine 02/12/2017 8:06 AM CDT documented in this encounter Results * Glucose POC (02/12/2017 8:06 AM CDT) Glucose, POC 129 70 - 199 mg/dL [facility] Blood specimen (specimen) 02/12/2017 8:06 AM CDT 02/12/2017 8:06 AM CDT Krish Nguyen DO POINT OF CARE TEST ORDERABLES Final Result [facility] [address] Department [place] [address] documented in this encounter Visit Diagnoses Not on filedocumented in this encounter Care Teams Gis Instructor Relationship Specialty Start Date End Date No, Physician PCP - General 02/11/17 02/13/17 Jey Klein PA [address] [place] [address] PCP - General 02/14/17 02/17/17 Rojas Fitzpatrick MD [address] [place] [address] PCP - General 02/18/17 02/22/17 Jey Klein PA [address] [place] [address] PCP - General 02/23/17 04/13/18 documented as of this encounter
--- OUTSIDE RECORDS SUMMARY | 2024-10-07 00:56 | XMS_ITS | Encounter Summary ---
Author Organization [facility] Medical Group Address [address] [facility] [address] [place] [address] Care Team Providers Care Supervisor Kosher Dietary Service Name Role Phone Jey Klein Primary Care Provider + Rojas Fitzpatrick MD Primary Care Provider [phone] Jey Klein Primary Care Provider + Encounter Details Date Type Department Care Team (Late st Contact Info) Description 02/14/2017 Orders Only [facility] [address] [facility] [address] [place] [address] [place] [address] [facility] [address] [place] [address] Social History Tobacco Use Types Packs/Day Years Used Date Smoking Tobacco: Never Assessed Comments Unknown Sex and Gender Information Value Date Recorded Sex Assigned at Not on file 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 Gender Identity Not on file Sexual Orientation Not on file documented as of this encounter Plan of Treatment Not on file documented as of this encounter Procedures Procedure Name Priority Date/Time Associated Diagnosis Comments GLUCOSE POC Routine 02/14/2017 3:24 AM CDT documented in this encounter Results * Glucose POC (02/14/2017 3:24 AM CDT) Glucose, POC 82 70 - 199 mg/dL [facility] Blood specimen (specimen) 02/14/2017 3:24 AM CDT 02/14/2017 3:24 AM CDT us Coleen Samuels MD POINT OF CARE [place] [address] [address] Department [place] [address] documented in this encounter Visit Diagnoses Not on filedocumented in this encounter Care Teams Supervisor Kosher Dietary Service Relationship Specialty Start Date End Date Jey Klein PA [address] [place] [address] PCP - General 02/14/17 02/17/17 Rojas Fitzpatrick MD [address] [place] [address] PCP - General 02/18/17 02/22/17 Jey Klein PA [address] [place] [address] PCP - General 02/23/17 04/13/18 documented as of this encounter
--- OUTSIDE RECORDS SUMMARY | 2024-10-07 00:56 | XMS_ITS | Encounter Summary ---
Author Organization [facility] Medical [facility] Address [address] [facility] [address] [place] [address] Care Team Providers Care Field Service Specialist Name Role Phone No, Physician Primary Care Provider [phone] Jey Klein Primary Care Provider + Rojas Fitzpatrick MD Primary Care Provider [phone] Jey Klein Primary Care Provider + Encounter Details Date Type Department Care Team (Late st Contact Info) Description 02/13/2017 Orders Only Hospitalists [address] [facility] [address] [place] [address] [place] [address] [facility] [address] [place] [address] Social History Tobacco Use Types Packs/Day Years Used Date Smoking Tobacco: Never Assessed Comments Unknown Sex and Gender Information Value Date Recorded Sex Assigned at Not on file 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 Gender Identity Not on file Sexual Orientation Not on file documented as of this encounter Plan of Treatment Not on file documented as of this encounter Procedures Procedure Name Priority Date/Time Associated Diagnosis Comments GLUCOSE POC Routine 02/13/2017 3:11 AM CDT documented in this encounter Results * (ABNORMAL) Glucose POC (02/13/2017 3:11 AM CDT) Glucose, POC 236(H) 70 - 199 mg/dL [facility] Blood specimen (specimen) 02/13/2017 3:11 AM CDT 02/13/2017 3:11 AM CDT us Coleen Samuels MD POINT OF CARE TEST ORDERA BLES Final Result [facility] [address] Department [place] [address] documented in this encounter Visit Diagnoses Not on filedocumented in this encounter Care Teams Field Service Specialist Relationship Specialty Start Date End Date No, Physician PCP - General 02/11/17 02/13/17 Jey Klein PA [address] [place] [address] PCP - General 02/14/17 02/17/17 [place] [address] [place] [address] PCP - General 02/18/17 02/22/17 Jey Klein PA [address] [place] [address] PCP - General 02/23/17 04/13/18 documented as of this encounter
--- OUTSIDE RECORDS SUMMARY | 2024-10-07 00:56 | XMS_ITS | Encounter Summary ---
Author Organization [facility] Medical [facility] Address [address] [facility] [address] [place] [address] Care Team Providers Care Trailers And Motor Homes Salesperson Name Role Phone No, Physician Primary Care Provider [phone] Jey Klein Primary Care Provider + Rojas Fitzpatrick MD Primary Care Provider [phone] Jey Klein Primary Care Provider + Encounter Details Date Type Department Care Team (Late st Contact Info) Description 02/13/2017 Orders Only Hospitalists [address] [facility] [address] [place] [address] [place] [address] [facility] [address] [place] [address] Social History Tobacco Use Types Packs/Day Years Used Date Smoking Tobacco: Never Assessed Comments Unknown Sex and Gender Information Value Date Recorded Sex Assigned at Not on file 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 Gender Identity Not on file Sexual Orientation Not on file documented as of this encounter Plan of Treatment Not on file documented as of this encounter Procedures Procedure Name Priority Date/Time Associated Diagnosis Comments GLUCOSE POC Routine 02/13/2017 7:51 AM CDT documented in this encounter Results * (ABNORMAL) Glucose POC (02/13/2017 7:51 AM CDT) Glucose, POC 243(H) 70 - 199 mg/dL [facility] Blood specimen (specimen) 02/13/2017 7:51 AM CDT 02/13/2017 7:51 AM CDT us Coleen Samuels MD POINT OF CARE TEST ORDERA BLES Final Result [facility] [address] Department [place] [address] documented in this encounter Visit Diagnoses Not on filedocumented in this encounter Care Teams Trailers And Motor Homes Salesperson Relationship Specialty Start Date End Date No, Physician PCP - General 02/11/17 02/13/17 Jey Klein PA [address] [place] [address] PCP - General 02/14/17 02/17/17 [place] [address] [place] [address] PCP - General 02/18/17 02/22/17 Jey Klein PA [address] [place] [address] PCP - General 02/23/17 04/13/18 documented as of this encounter
--- OUTSIDE RECORDS SUMMARY | 2024-10-07 00:56 | XMS_ITS | Encounter Summary ---
Author Organization [facility] Medical Group Address [address] [facility] [address] [place] [address] Care Team Providers Care Mold Builder Name Role Phone No, Physician Primary Care Provider [phone] Jey Klein Primary Care Provider + Rojas Fitzpatrick MD Primary Care Provider [phone] Jey Klein Primary Care Provider + Encounter Details Date Type Department Care Team (Late st Contact Info) Description 02/13/2017 Orders Only Hospitalists [address] [facility] [address] [place] [address] [place] [address] 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 CARE NURSE 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 Gender Identity Not on file Sexual Orientation Not on file documented as of this encounter Plan of Treatment Not on file documented as of this encounter Procedures Procedure Name Priority Date/Time Associated Diagnosis Comments GLUCOSE POC Routine 02/13/2017 5:57 PM CDT documented in this encounter Results * (ABNORMAL) Glucose POC (02/13/2017 5:57 PM CDT) Glucose, POC 339(H) 70 - 199 mg/dL [facility] Blood specimen (specimen) 02/13/2017 5:57 PM CDT 02/13/2017 5:57 PM CDT us Coleen Samuels MD POINT OF CARE TEST ORDERA BLES Final Result [facility] [address] Department [place] [address] documented in this encounter Visit Diagnoses Not on filedocumented in this encounter Care Teams Mold Builder Relationship Specialty Start Date End Date No, Physician PCP - General 02/11/17 02/13/17 Jey Klein PA [address] [place] [address] PCP - General 02/14/17 02/17/17 [place] [address] [place] [address] PCP - General 02/18/17 02/22/17 Jey Klein PA [address] [place] [address] PCP - General 02/23/17 04/13/18 documented as of this encounter
--- OUTSIDE RECORDS SUMMARY | 2024-10-07 00:56 | XMS_ITS | Encounter Summary ---
Author Organization [facility] Healthcare Address [address] [place] [address] Care Team Providers Care Life Sciences Instructor Name Role Phone No, Physician Primary Care Provider [phone] Jey Klein Primary Care Provider + Rojas Fitzpatrick MD Primary Care Provider [phone] Jey Klein Primary Care Provider + Encounter Details Date Type Department Care Team (Late st Contact Info) Description 02/13/2017 Orders Only [facility] [phone] Marek Banda Social History Tobacco Use Types Packs/Day Years Used Date Smoking Tobacco: Never Assessed Comments Unknown Sex and Gender Information Value Date Recorded Sex Assigned at Not on file 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 Gender Identity Not on file Sexual Orientation Not on file documented as of this encounter Plan of Treatment Not on file documented as of this encounter Procedures Procedure Name Priority Date/Time Associated Diagnosis Comments DIFFERENTIAL AUTO Routine 02/13/2017 5:1 5 AM CDT documented in this encounter Results * Differential, auto (02/13/2017 5:15 AM CDT) Neutrophil pct 58.7 % [facility] Imm gran pct 0.5 % [facility] Lymphocyte pct 24.5 % [facility] Monocyte pct 12.9 % [facility] Eosinophil pct 0.1 % [facility] Basophil pct 1.1 % [facility] Neutrophil abs 3.58 1.70 - 6.50 K/cumm [facility] Imm gran abs 0.03 0.00 - 0.10 K/cumm [facility] Lymphocyte abs 1.50 0.80 - 3.30 K/cumm [facility] Monocyte abs 0.79 0.20 - 0.80 K/cumm [facility] Eosinophil abs 0.14 0.00 - 0.50 K/cumm [facility] Basophil abs 0.07 0.00 - 0.10 K/cumm [facility] Blood specimen (specimen) 02/13/2017 5:15 AM CDT 02/13/2017 5:38 AM CDT Marek Banda LAB BLOOD ORDERABLES Final Res ult [facility] [address] Department [place] [address] documented in this encounter Visit Diagnoses Not on filedocumented in this encounter Care Teams Life Sciences Instructor Relationship Specialty Start Date End Date No, Physician PCP - General 02/11/17 02/13/17 [place] [address] [place] [address] PCP - General 02/14/17 02/17/17 Rojas Fitzpatrick MD [address] [place] [address] PCP - General 02/18/17 02/22/17 Jey Klein PA [address] [place] [address] PCP - General 02/23/17 04/13/18 documented as of this encounter
--- OUTSIDE RECORDS SUMMARY | 2024-10-07 00:56 | XMS_ITS | Encounter Summary ---
Author Organization [facility] Healthcare Address [address] [place] [address] Care Team Providers Care Sprinkler Fitter Helper Name Role Phone No, Physician Primary Care Provider Jey Klein Primary Care Provider + Rojas Fitzpatrick MD Primary Care Provider [phone] Jey Klein Primary Care Provider + Encounter Details Date Type Department Care Team (Late st Contact Info) Description 02/11/2017 Orders Only [facility] [phone] Krish Nguyen, [address] [facility] [place] [address] Social History Tobacco Use Types Packs/Day Years Used Date Smoking Tobacco: Never Assessed Comments Unknown Sex and Gender Information Value Date Recorded Sex Assigned at Not on file 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 0.00 - 0.14 ng/mL Indeterminate: ?0.15 - 0.50 ng/mL UT / Cardiac Muscle Damage: ? >0.50 ng/mL Current interpretive data was last reviewed 2016 Blood specimen (specimen) 02/11/2017 11:25 PM CDT 02/12/2017 4:23 AM CDT us Krish Nguyen DO LAB BLOOD ORDERABLES Final Res ult [facility] [id number] [address] Department [place] [address] documented in this encounter Visit Diagnoses Not on filedocumented in this encounter Care Teams Sprinkler Fitter Helper Relationship Specialty Start Date End Date No, Physician PCP - General 02/11/17 02/13/17 [place] [address] [place] [address] PCP - General 02/14/17 02/17/17 [place] [address] [place] [address] PCP - General 02/18/17 02/22/17 Jey Klein PA [address] [place] [address] PCP - General 02/23/17 04/13/18 documented as of this encounter
--- OUTSIDE RECORDS SUMMARY | 2024-10-07 00:56 | XMS_ITS | Encounter Summary ---
Author Organization [facility] Medical [facility] Address [address] [facility] [address] [address] [place] [address] Care Team Providers Care Process Engineering Intern Name Role Phone Jey Klein Primary Care Provider + Rojas Fitzpatrick MD Primary Care Provider [phone] Jey Klein Primary Care Provider + Encounter Details Date Type Department Care Team (Late st Contact Info) Description 02/14/2017 Orders Only [facility] Hospital[facility] [address] [place] [address] [place] [address] [facility] [address] [place] [address] Social History Tobacco Use Types Packs/Day Years Used Date Smoking Tobacco: Never Assessed Comments Unknown Sex and Gender Information Value Date Recorded Sex Assigned at Not on file 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 Gender Identity Not on file Sexual Orientation Not on file documented as of this encounter Plan of Treatment Not on file documented as of this encounter Procedures Procedure Name Priority Date/Time Associated Diagnosis Comments GLUCOSE POC Routine 02/14/2017 12:29 PM CDT documented in this encounter Results * (ABNORMAL) Glucose POC (02/14/2017 12:29 PM CDT) Glucose, POC 285(H) 70 - 199 mg/dL [facility] Blood specimen (specimen) 02/14/2017 12:29 PM CDT 02/14/2017 12:29 PM CDT us Coleen Samuels MD POINT OF CARE TEST ORDERA BLES Final Result [facility] [address] [place] [address] documented in this encounter Visit Diagnoses Not on filedocumented in this encounter Care Teams Process Engineering Intern Relationship Specialty Start Date End Date Jey Klein PA [address] [place] [address] PCP - General 02/14/17 02/17/17 Rojas Fitzpatrick MD [address] [place] [address] PCP - General 02/18/17 02/22/17 Jey Klein PA [address] [place] [address] PCP - General 02/23/17 04/13/18 documented as of this encounter
--- OUTSIDE RECORDS SUMMARY | 2024-10-07 00:56 | XMS_ITS | Encounter Summary ---
Author Organization [facility] Healthcare Address [address] [place] [address] Care Team Providers Care Principal Strategist Name Role Phone No, Physician Primary Care Provider [phone] Jey Klein Primary Care Provider + Rojas Fitzpatrick MD Primary Care Provider [phone] Jey Klein Primary Care Provider + Encounter Details Date Type Department Care Team (Late st Contact Info) Description 02/12/2017 Orders Only [facility] [phone] Krish Nguyen, [address] [facility] [place] [address] Social History Tobacco Use Types Packs/Day Years Used Date Smoking Tobacco: Never Assessed Comments Unknown Sex and Gender Information Value Date Recorded Sex Assigned at Not on file 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 Gender Identity Not on file Sexual Orientation Not on file documented as of this encounter Plan of Treatment Not on file documented as of this encounter Procedures Procedure Name Priority Date/Time Associated Diagnosis Comments GLUCOSE POC Routine 02/12/2017 5:43 AM CDT documented in this encounter Results * Glucose POC (02/12/2017 5:43 AM CDT) Glucose, POC 131 70 - 199 mg/dL [facility] Blood specimen (specimen) 02/12/2017 5:43 AM CDT 02/12/2017 5:43 AM CDT Krish Nguyen DO POINT OF CARE TEST ORDERABLES Final Result [facility] [address] [address] Department [place] [address] documented in this encounter Visit Diagnoses Not on filedocumented in this encounter Care Teams Principal Strategist Relationship Specialty Start Date End Date No, Physician PCP - General 02/11/17 02/13/17 Jey Klein PA [address] [place] [address] PCP - General 02/14/17 02/17/17 Rojas Fitzpatrick MD [address] [place] [address] PCP - General 02/18/17 02/22/17 Jey Klein PA [address] [place] [address] PCP - General 02/23/17 04/13/18 documented as of this encounter
--- OUTSIDE RECORDS SUMMARY | 2024-10-07 00:56 | XMS_ITS | Encounter Summary ---
Author Organization [facility] Healthcare Address [address] [place] [address] Care Team Providers Care Iron Caster Name Role Phone No, Physician Primary Care Provider [phone] Jey Klein Primary Care Provider + Rojas Fitzpatrick MD Primary Care Provider [phone] Jey Klein Primary Care Provider + Encounter Details Date Type Department Care Team (Late st Contact Info) Description 10/14/2016 Orders Only [facility] [phone] Krish Nguyen, [address] [facility] [place] [address] Social History Tobacco Use Types Packs/Day Years Used Date Smoking Tobacco: Never Assessed Comments Unknown Sex and Gender Information Value Date Recorded Sex Assigned at Not on file 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 Previous collection date/time: 23:25:27. Blood specimen (specimen) 02/11/2017 11:25 PM CDT 02/12/2017 1:39 AM CDT us Krish Nguyen DO LAB BLOOD ORDERABLES Edited Re carolynet - Final [facility] [address] [address] Department [place] [address] documented in this encounter Visit Diagnoses Not on filedocumented in this encounter Care Teams Iron Caster Relationship Specialty Start Date End Date No, Physician PCP - General 02/11/17 02/13/17 Jey Klein PA [address] [place] [address] PCP - General 02/14/17 02/17/17 [place] [address] [place] [address] PCP - General 02/18/17 02/22/17 Jey Klein PA [address] [place] [address] PCP - General 02/23/17 04/13/18 documented as of this encounter
--- OUTSIDE RECORDS SUMMARY | 2024-10-07 00:56 | XMS_ITS | Encounter Summary ---
Author Organization [facility] Healthcare Address [address] [place] [address] Care Team Providers Care Fire Chief Deputy Name Role Phone No, Physician Primary Care Provider [phone] Jey Klein Primary Care Provider + Rojas Fitzpatrick MD Primary Care Provider [phone] Jey Klein Primary Care Provider + Encounter Details Date Type Department Care Team (Late st Contact Info) Description 02/12/2017 Orders Only [facility] Interim [phone] Krish Nguyen, [address] [facility] [address] Social History Tobacco Use Types Packs/Day Years Used Date Smoking Tobacco: Never Assessed Comments Unknown Sex and Gender Information Value Date Recorded Sex Assigned at Not on file 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 0.00 - 0.14 ng/mL Indeterminate: ?0.15 - 0.50 ng/mL [place] / Cardiac Muscle Damage: ? >0.50 ng/mL Current interpretive data was last reviewed 2016 Blood specimen (specimen) 02/12/2017 11:20 AM CDT 02/12/2017 11:44 AM CDT us Krish Nguyen DO LAB BLOOD ORDERABLES Final Res ult [facility] [id number] [place] [address] documented in this encounter Visit Diagnoses Not on filedocumented in this encounter Care Teams Fire Chief Deputy Relationship Specialty Start Date End Date No, Physician PCP - General 02/11/17 02/13/17 [place] [address] [place] [address] PCP - General 02/14/17 02/17/17 [place] [address] [place] [address] PCP - General 02/18/17 02/22/17 Jey Klein PA [address] [place] [address] PCP - General 02/23/17 04/13/18 documented as of this encounter
--- OUTSIDE RECORDS SUMMARY | 2024-10-07 00:56 | XMS_ITS | Encounter Summary ---
Author Organization [facility] Address [address] [place] [address] Care Team Providers Care Polymerization Oven Tender Name Role Phone No, Physician Primary Care Provider [phone] Jey Klein Primary Care Provider + Rojas Fitzpatrick MD Primary Care Provider [phone] Jey Klein Primary Care Provider + Encounter Details Date Type Department Care Team (Late st Contact Info) Description 02/12/2017 Orders Only Hospitalists [address] 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 Gender Identity Not on file Sexual Orientation Not on file documented as of this encounter Plan of Treatment Not on file documented as of this encounter Procedures Procedure Name Priority Date/Time Associated Diagnosis Comments GLUCOSE POC Routine 02/12/2017 8:51 PM CDT documented in this encounter Results * (ABNORMAL) Glucose POC (02/12/2017 8:51 PM CDT) Glucose, POC 308(H) 70 - 199 mg/dL [facility] Blood specimen (specimen) 02/12/2017 8:51 PM CDT 02/12/2017 8:51 PM CDT us Coleen Samuels MD POINT OF CARE TEST ORDERA BLES Final Result [facility] [address] Department [place] [address] documented in this encounter Visit Diagnoses Not on filedocumented in this encounter Care Teams Polymerization Oven Tender Relationship Specialty Start Date End Date No, Physician PCP - General 02/11/17 02/13/17 Jey Klein PA [address] [place] [address] PCP - General 02/14/17 02/17/17 [place] [address] [place] [address] PCP - General 02/18/17 02/22/17 Jey Klein PA [address] [place] [address] PCP - General 02/23/17 04/13/18 documented as of this encounter
--- OUTSIDE RECORDS SUMMARY | 2024-10-07 00:56 | XMS_ITS | Encounter Summary ---
Author Organization [facility] Healthcare Address [address] [place] [address] Care Team Providers Care White Lead Grinder Name Role Phone No, Physician Primary Care Provider [phone] Jey Klein Primary Care Provider + Rojas Fitzpatrick MD Primary Care Provider [phone] Jey Klein Primary Care Provider + Encounter Details Date Type Department Care Team (Late st Contact Info) Description 02/12/2017 Orders Only [facility] Interim [phone] Krish Nguyen, [address] [facility] [place] [address] Social History Tobacco Use Types Packs/Day Years Used Date Smoking Tobacco: Never Assessed Comments Unknown Sex and Gender Information Value Date Recorded Sex Assigned at Not on file 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 0.00 - 0.14 ng/mL Indeterminate: ?0.15 - 0.50 ng/mL [place] / Cardiac Muscle Damage: ? >0.50 ng/mL Current interpretive data was last reviewed 2016 Blood specimen (specimen) 02/12/2017 1:38 PM CDT 02/12/2017 2:09 PM CDT us Krish Nguyen DO LAB BLOOD ORDERABLES Final Res ult [facility] [address] [address] Department [place] [address] documented in this encounter Visit Diagnoses Not on filedocumented in this encounter Care Teams White Lead Grinder Relationship Specialty Start Date End Date No, Physician PCP - General 02/11/17 02/13/17 [place] [address] [place] [address] PCP - General 02/14/17 02/17/17 [place] [address] [place] [address] PCP - General 02/18/17 02/22/17 Jey Klein PA [address] [place] [address] PCP - General 02/23/17 04/13/18 documented as of this encounter
--- OUTSIDE RECORDS SUMMARY | 2024-10-07 00:56 | XMS_ITS | Encounter Summary ---
Author Organization [facility] Address [address] [place] [address] Care Team Providers Care Mainspring Former Name Role Phone No, Physician Primary Care Provider [phone] Jey Klein Primary Care Provider + Rojas Fitzpatrick MD Primary Care Provider [phone] Jey Klein Primary Care Provider + Encounter Details Date Type Department Care Team (Late st Contact Info) Description 02/13/2017 Orders Only Hospitalists [address] [facility] [address] [place] [address] [place] [address] 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 Gender Identity Not on file Sexual Orientation Not on file documented as of this encounter Plan of Treatment Not on file documented as of this encounter Procedures Procedure Name Priority Date/Time Associated Diagnosis Comments GLUCOSE POC Routine 02/13/2017 1:25 PM CDT documented in this encounter Results * (ABNORMAL) Glucose POC (02/13/2017 1:25 PM CDT) Glucose, POC 380(H) 70 - 199 mg/dL [facility] Blood specimen (specimen) 02/13/2017 1:25 PM CDT 02/13/2017 1:25 PM CDT us Coleen Samuels MD POINT OF CARE TEST ORDERA BLES Final Result [facility] [address] [address] Department [place] [address] documented in this encounter Visit Diagnoses Not on filedocumented in this encounter Care Teams Mainspring Former Relationship Specialty Start Date End Date No, Physician PCP - General 02/11/17 02/13/17 Jey Klein PA [address] [place] [address] PCP - General 02/14/17 02/17/17 [place] [address] [place] [address] PCP - General 02/18/17 02/22/17 Jey Klein PA [address] [place] [address] PCP - General 02/23/17 04/13/18 documented as of this encounter
--- OUTSIDE RECORDS SUMMARY | 2024-10-07 00:56 | XMS_ITS | Encounter Summary ---
Author Organization [facility] Healthcare Address [address] [place] [address] Care Team Providers Care Hydraulic Rock Drill Operator Name Role Phone Jey Klein Primary Care Provider + Rojas Fitzpatrick MD Primary Care Provider [phone] Jey Klein Primary Care Provider + Encounter Details Date Type Department Care Team (Late st Contact Info) Description 02/14/2017 Orders Only [facility] Interim [phone] Maxine Cates, ASSISTANT SUPERINTENDENT [address] [place] [address] Social History Tobacco Use Types Packs/Day Years Used Date Smoking Tobacco: Never Assessed Comments Unknown Sex and Gender Information Value Date Recorded Sex Assigned at Not on file 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 Gender Identity Not on file Sexual Orientation Not on file documented as of this encounter Plan of Treatment Not on file documented as of this encounter Procedures Procedure Name Priority Date/Time Associated Diagnosis Comments BASIC METABOLIC PANEL Routine 02/14/2017 11:10 AM CDT documented in this encounter Results * (ABNORMAL) Basic metabolic panel (02/14/2017 11:10 AM CDT) Sodium 132(L) 135 - 145 mmol/L [facility] Potassium, pl 3.7 3.5 - 5.1 mmol/L [facility] Chloride 93(L) 100 - 114 mmol/L [facility] CO2 27 22 - 32 mmol/L [facility] BUN 16 8 - 24 mg/dL [facility] Glucose 269(H) 70 - 199 mg/dL [facility] Creatinine 1.03 0.60 - 1.30 mg/dL [facility] Calcium 8.6 8.4 - 10.5 mg/dL [facility] Anion gap 16 8 - 16 mmol/L [facility] Blood specimen (specimen) 02/14/2017 11:10 AM CDT 02/14/2017 11:14 AM CDT us Maxine Cates ASSISTANT SUPERINTENDENT LAB BLOOD ORDERABLES Final Result [facility] [address] [address] Department [place] [address] documented in this encounter Visit Diagnoses Not on filedocumented in this encounter Care Teams Hydraulic Rock Drill Operator Relationship Specialty Start Date End Date Jey Klein PA [address] [place] [address] PCP - General 02/14/17 02/17/17 Rojas Fitzpatrick MD [address] [place] [address] PCP - General 02/18/17 02/22/17 Jey Klein PA [address] [place] [address] PCP - General 02/23/17 04/13/18 documented as of this encounter
--- OUTSIDE RECORDS SUMMARY | 2024-10-07 00:56 | XMS_ITS | Encounter Summary ---
Author Organization [facility] Healthcare Address [address] [place] [address] Care Team Providers Care Consumer Studies Professor Name Role Phone No, Physician Primary Care Provider [phone] Jey Klein Primary Care Provider + Rojas Fitzpatrick MD Primary Care Provider [phone] Jey Klein Primary Care Provider + Encounter Details Date Type Department Care Team (Late st Contact Info) Description 02/11/2017 Orders Only [facility] Interim [phone] Krish Nguyen, [address] [facility] [place] [address] Social History Tobacco Use Types Packs/Day Years Used Date Smoking Tobacco: Never Assessed Comments Unknown Sex and Gender Information Value Date Recorded Sex Assigned at Not on file 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60 - 1.30 mg/dL [facility] Calcium 8.6 8.4 - 10.5 mg/dL [facility] Chloride 93(L) 100 - 114 mmol/L [facility] Albumin 3.1(L) 3.2 - 4.8 g/dL [facility] AST 128(H) 7 - 40 Units/L [facility] ALT 184(H) 1 - 45 Units/L [facility] Alk phos 248(H) 30 - 110 Units/L [facility] Bilirubin, total 1.70(H) 0.10 - 1.30 mg/dL [facility] Protein, pl 6.2 6.0 - 8.3 g/dL [facility] Anion gap 15 8 - 16 mmol/L [facility] Blood specimen (specimen) 02/11/2017 11:25 PM CDT 02/12/2017 12:52 AM CDT us Krish Nguyen DO LAB BLOOD ORDERABLES Final Res ult [facility] [address] [address] Department [place] [address] documented in this encounter Visit Diagnoses Not on filedocumented in this encounter Care Teams Consumer Studies Professor Relationship Specialty Start Date End Date No, Physician PCP - General 02/11/17 02/13/17 Jey Klein PA [address] [place] [address] PCP - General 02/14/17 02/17/17 Rojas Fitzpatrick MD [address] [place] [address] PCP - General 02/18/17 02/22/17 Jey Klein PA [address] [place] [address] PCP - General 02/23/17 04/13/18 documented as of this encounter
--- OUTSIDE RECORDS SUMMARY | 2024-10-07 00:56 | XMS_ITS | Encounter Summary ---
Author Organization [facility] Healthcare Address [address] [place] [address] Care Team Providers Care Room Inspector Name Role Phone No, Physician Primary Care Provider Jey Klein Primary Care Provider + Rojas Fitzpatrick MD Primary Care Provider [phone] Jey Klein Primary Care Provider + Encounter Details Date Type Department Care Team (Late st Contact Info) Description 02/11/2017 Orders Only [facility] Interim [phone] Krish Nguyen, [address] [facility] [place] [address] Social History Tobacco Use Types Packs/Day Years Used Date Smoking Tobacco: Never Assessed Comments Unknown Sex and Gender Information Value Date Recorded Sex Assigned at Not on file 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 60 - 89 mL/min/1.73m2 Mildly to moderately decreased ?45 - 59 mL/min/1.73m2 Moderately to severely decreased ??30 - 44 mL/min/1.73m2 Severely decreased ?15 - 29 mL/min/1.73m2 Kidney Failure ?< 15 ??mL/min/1.73m2 *Relative to young adult level If -French multiply value by 1.16. Estimated glomerular filtration [...] was last reviewed 2016. Blood specimen (specimen) 02/11/2017 11:25 PM CDT 02/12/2017 12:54 AM CDT us Krish Nguyen DO LAB BLOOD ORDERABLES Final Res ult Performing Organization Address City/State/[facility] Co pr Phone Number [facility] [address] [address] Department [place] [address] documented in this encounter Visit Diagnoses Not on filedocumented in this encounter Care Teams Room Inspector Relationship Specialty Start Date End Date No, Physician PCP - General 02/11/17 02/13/17 Jey Klein PA [address] [place] [address] PCP - General 02/14/17 02/17/17 Rojas Fitzpatrick MD [address] [place] [address] PCP - General 02/18/17 02/22/17 Jey Klein PA [address] [place] [address] PCP - General 02/23/17 04/13/18 documented as of this encounter
--- OUTSIDE RECORDS SUMMARY | 2024-10-07 00:56 | XMS_ITS | Encounter Summary ---
Author Organization [facility] Address [address] [facility] [address] [place] [address] Care Team Providers Care Rn Pacu Name Role Phone No, Physician Primary Care Provider [phone] Jey Klein Primary Care Provider + Rojas Fitzpatrick MD Primary Care Provider [phone] Jey Klein Primary Care Provider + Encounter Details Date Type Department Care Team (Late st Contact Info) Description 02/12/2017 Orders Only Hospitalists [address] [facility] [address] [place] [address] [place] [address] [facility] [address] [place] [address] Social History Tobacco Use Types Packs/Day Years Used Date Smoking Tobacco: Never Assessed Comments Unknown Sex and Gender Information Value Date Recorded Sex Assigned at Not on file 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 Gender Identity Not on file Sexual Orientation Not on file documented as of this encounter Plan of Treatment Not on file documented as of this encounter Procedures Procedure Name Priority Date/Time Associated Diagnosis Comments GLUCOSE POC Routine 02/12/2017 6:05 PM CDT documented in this encounter Results * (ABNORMAL) Glucose POC (02/12/2017 6:05 PM CDT) Glucose, POC 269(H) 70 - 199 mg/dL [facility] Blood specimen (specimen) 02/12/2017 6:05 PM CDT 02/12/2017 6:05 PM CDT us Coleen Samuels MD POINT OF CARE TEST ORDERA BLES Final Result [facility] [address] [address] Department [place] [address] documented in this encounter Visit Diagnoses Not on filedocumented in this encounter Care Teams Rn Pacu Relationship Specialty Start Date End Date No, Physician PCP - General 02/11/17 02/13/17 Jey Klein PA [address] [place] [address] PCP - General 02/14/17 02/17/17 [place] [address] [place] [address] PCP - General 02/18/17 02/22/17 Jey Klein PA [address] [place] [address] PCP - General 02/23/17 04/13/18 documented as of this encounter
--- OUTSIDE RECORDS SUMMARY | 2024-10-07 00:56 | XMS_ITS | Encounter Summary ---
Author Organization [facility] Healthcare Address [address] [place] [address] Care Team Providers Care Rf Engineer Name Role Phone No, Physician Primary Care Provider [phone] Jey Klein Primary Care Provider + Rojas Fitzpatrick MD Primary Care Provider [phone] Jey Klein Primary Care Provider + Encounter Details Date Type Department Care Team (Late st Contact Info) Description 02/13/2017 Orders Only [facility] Interim [phone] Marek Banda Social History Tobacco Use Types Packs/Day Years Used Date Smoking Tobacco: Never Assessed Comments Unknown Sex and Gender Information Value Date Recorded Sex Assigned at Not on file 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 Gender Identity Not on file Sexual Orientation Not on file documented as of this encounter Plan of Treatment Not on file documented as of this encounter Procedures Procedure Name Priority Date/Time Associated Diagnosis Comments CBC WITH AUTO DIFFERENTIAL Routine 02/13/2017 5:15 AM CDT documented in this encounter Results * (ABNORMAL) CBC with auto differential (02/13/2017 5:15 AM CDT) WBC 6.11 3.80 - 9.90 K/cumm [facility] RBC 3.67(L) 3.90 - 5.20 M/cumm [facility] Hgb 9.7(L) 11.9 - 15.5 g/dL [facility] Hct 31.6(L) 35.6 - 45.5 % [facility] MCV 86.1 81.3 - 96.4 fL [facility] MCH 26.4(L) 27.1 - 33.3 pg [facility] MCHC 30.7(L) 32.3 - 35.7 g/dL [facility] RDW CV 15.6(H) 11.1 - 14.9 % [facility] RDW SD 48.8(H) 35.7 - 48.1 fL [facility] Plt 339 150 - 400 K/cumm [facility] MPV 9.2 9.1 - 12.3 fL [facility] NRBC 0.0 0.0 - 0.2 % [facility] NRBC abs 0.00 0.00 - 0.01 K/cumm [facility] Blood specimen (specimen) 02/13/2017 5:15 AM CDT 02/13/2017 5:38 AM CDT Marek Banda LAB BLOOD ORDERABLES Final Res ult [facility] [address] [address] [place] [address] documented in this encounter Visit Diagnoses Not on filedocumented in this encounter Care Teams Rf Engineer Relationship Specialty Start Date End Date No, Physician PCP - General 02/11/17 02/13/17 Jey Klein PA [address] [place] [address] PCP - General 02/14/17 02/17/17 Rojas Fitzpatrick MD [address] [place] [address] [id number] PCP - General 02/18/17 02/22/17 Jey Klein PA [address] [place] [address] PCP - General 02/23/17 04/13/18 documented as of this encounter
--- OUTSIDE RECORDS SUMMARY | 2024-10-07 00:56 | XMS_ITS | Encounter Summary ---
Author Organization [facility] Healthcare Address [address] [place] [address] Care Team Providers Care Revenue Agent Name Role Phone No, Physician Primary Care Provider [phone] Jey Klein Primary Care Provider + Rojas Fitzpatrick MD Primary Care Provider [phone] Jey Klein Primary Care Provider + Encounter Details Date Type Department Care Team (Late st Contact Info) Description 02/11/2017 Orders Only [facility] Interim [phone] Krish Nguyen, [address] [facility] [address] Social History Tobacco Use Types Packs/Day Years Used Date Smoking Tobacco: Never Assessed Comments Unknown Sex and Gender Information Value Date Recorded Sex Assigned at Not on file 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 Gender Identity Not on file Sexual Orientation Not on file documented as of this encounter Plan of Treatment Not on file documented as of this encounter Procedures Procedure Name Priority Date/Time Associated Diagnosis Comments DIFFERENTIAL AUTO STAT 02/11/2017 11: 25 PM CDT documented in this encounter Results * Differential, auto (02/11/2017 11:25 PM CDT) Neutrophil pct 55.6 % [facility] Imm gran pct 0.4 % [facility] Lymphocyte pct 29.1 % [facility] Monocyte pct 11.2 % [facility] Eosinophil pct 0.2 % [facility] Basophil pct 0.9 % [facility] Neutrophil abs 3.76 1.70 - 6.50 K/cumm [facility] Imm gran abs 0.03 0.00 - 0.10 K/cumm [facility] Lymphocyte abs 1.97 0.80 - 3.30 K/cumm [facility] Monocyte abs 0.76 0.20 - 0.80 K/cumm [facility] Eosinophil abs 0.19 0.00 - 0.50 K/cumm [facility] Basophil abs 0.06 0.00 - 0.10 K/cumm [facility] Blood specimen (specimen) 02/11/2017 11:25 PM CDT 02/12/2017 12:52 AM CDT us Krish Nguyen DO LAB BLOOD ORDERABLES Final Res ult Performing Organization Address City/State/[facility] Co de Phone Number [facility] [phone] [address] Department [place] [address] documented in this encounter Visit Diagnoses Not on filedocumented in this encounter Care Teams Revenue Agent Relationship Specialty Start Date End Date No, Physician PCP - General 02/11/17 02/13/17 Jey Klein PA [address] [place] [address] PCP - General 02/14/17 02/17/17 Rojas Fitzpatrick MD [address] [place] [address] PCP - General 02/18/17 02/22/17 Jey Klein PA [address] [place] [address] PCP - General 02/23/17 04/13/18 documented as of this encounter
--- OUTSIDE RECORDS SUMMARY | 2024-10-07 00:56 | XMS_ITS | Encounter Summary ---
Author Organization [facility] Address [address] [place] [address] Care Team Providers Care Cnc Milling Machine Operator Name Role Phone Jey Klein Primary Care Provider + Rojas Fitzpatrick MD Primary Care Provider [phone] Jey Klein Primary Care Provider + Encounter Details Date Type Department Care Team (Late st Contact Info) Description 02/14/2017 Orders Only [facility] Interim [phone] Maxine Cates, SEWING SUPERVISOR [address] [place] [address] Social History Tobacco Use Types Packs/Day Years Used Date Smoking Tobacco: Never Assessed Comments Unknown Sex and Gender Information Value Date Recorded Sex Assigned at Not on file 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 60 - 89 mL/min/1.73m2 Mildly to moderately decreased ?45 - 59 mL/min/1.73m2 Moderately to severely decreased ??30 - 44 mL/min/1.73m2 Severely decreased ?15 - 29 mL/min/1.73m2 Kidney Failure ?< 15 ??mL/min/1.73m2 *Relative to young adult level If -[place] multiply value by 1.16. Estimated glomerular filtration [...] was last reviewed 2016. Blood specimen (specimen) 02/14/2017 11:10 AM CDT 02/14/2017 11:15 AM CDT us Maxine Cates SEWING SUPERVISOR LAB BLOOD ORDERABLES Final Result Performing Organization Address City/State/[facility] Phone Number [facility] [address] [place] [address] documented in this encounter Visit Diagnoses Not on filedocumented in this encounter Care Teams Cnc Milling Machine Operator Relationship Specialty Start Date End Date Jey Klein PA [address] [place] [address] PCP - General 02/14/17 02/17/17 [place] [address] [place] [address] PCP - General 02/18/17 02/22/17 Jey Klein PA [address] [place] [address] PCP - General 02/23/17 04/13/18 documented as of this encounter
== END 2024-09-30 02:21 | disposition home or self-care (01) ==
PROVIDERS: Emergency Provider Emergency Medicine; PCP Family Medicine
DX: T14.8XXA Other injury of unspecified body region, initial encounter (principal); Z91.148 Patient's other noncompliance with medication regimen for other reason; Z79.4 Long term (current) use of insulin; I48.91 Unspecified atrial fibrillation; Z79.01 Long term (current) use of anticoagulants; E11.9 Type 2 diabetes mellitus without complications; K21.9 Gastro-esophageal reflux disease without esophagitis; E03.9 Hypothyroidism, unspecified; I10 Essential (primary) hypertension; Z95.0 Presence of cardiac pacemaker; Z87.891 Personal history of nicotine dependence
CPT/HCPCS: 71045; 93005; 99283; A9270

== ENCOUNTER 2025-02-21 16:36 | Inpatient (IN) | payer OTHER, SELFPAY ==
[2025-02-21] VITALS (11 sets, daily range): BP systolic 106–169; BP diastolic 64–94; PULSE 79–88; RESP 12–28; TEMP 36.5; O2SAT 92–98
--- NOTE | ~2025-02-21 | XR_ITS ---
XR chest 1V portable Ordering provider: Argelia Pruett PA-C History: 64 years Female with . dyspnea . Comparison: September 29, 2024 FINDINGS: MEDIASTINUM: The cardiac silhouette is moderately enlarged. Congestive clifton. LUNGS: No pneumothorax. Opacification in the left lung base is seen suggestive of atelectasis versus pneumonia with pleural effusion. Bilateral interstitial and alveolar opacification. OTHER: No free air under the diaphragm. IMPRESSION: Cardiomegaly with cardiac decompensation and pulmonary edema. Left basilar atelectasis versus pneumonia with pleural effusion. Follow-up to resolution advised Reviewed, dictated and finalized at location A. IMPRESSION: Cardiomegaly with cardiac decompensation and pulmonary edema. Left basilar atelectasis versus pneumonia with pleural effusion. Follow-up to [facility] advised
--- NOTE | ~2025-02-21 | CT_ITS ---
CTA chest abdomen pelvis Ordering provider: Argelia Pruett PA-C History: . hypotensive, chest pain, dyspnea . Comparison: July 06, 2024 Technique: CT angiogram chest, abdomen and pelvis was performed following timed intravenous injection of contrast. Thin slice axial images and reformatted coronal images were obtained. Three dimensional reformatted images of the chest were also obtained using a [employer] workstation. Radiation reduction t echnique utilized.The dose-length product was 2066.14 mGy-cm. 100 mL Omnipaque 350 was given IV. FINDINGS: CHEST: --THORACIC AORTA:No aneurysm, dissection or mediastinal hematoma. --GREAT VESSELS: Normal as visualized. --PULMONARY ARTERIES: No pulmonary embolus. --VISUALIZED THORACIC INLET: Normal. --MEDIASTINUM: Coronary arteries: Normal. Heart/other: The heart is moderately enlarged. [id number] pericardial effusion is seen. Prominent pulmonary artery suggestive of pulmonary hypertension. Reflux of the contrast in the inferior vena cava and hepatic veins suggestive of right-sided failure. Lymph nodes: No mediastinal or hilar adenopathy. --LUNGS: The nodules seen previously in the right upper lobe is not demonstrated and probably involves focal p neumonia. No pulmonary masses. No pneumothorax. Bilateral pleural effusion more on the left side. Adj acent atelectasis versus pneumonia is seen in the left side. --MUSCULOSKELETAL: Superficial soft tissues: Edema in the subcutaneous tissues is noted suggestive of volume overload. T he superficial soft tissues are normal. Bones: Age appropriate degenerative changes of the spine. Bilateral sacroiliacs. ABDOMEN/PELVIS: --MUSCULOSKELETAL: Bones: Age appropriate degenerative changes of the spine. Bilateral sacroiliacs. Superficial soft tissues: The superficial soft tissues are normal. --UPPER ABDOMINAL ORGANS: Liver: Fat infiltration. Gallbladder: Status post cholecystectomy. Spleen: Normal. Minimal fluid seen around the spleen and left paracolic gutter. Stomach/duodenum: Sliding hiatus hernia. Pancreas: Atrophic. Adrenals: Normal. Kidneys: Normal. --PELVIC ORGANS: The bladder is normal. No bladder stones. --BOWEL AND MESENTERY: Colon: No evidence of diverticulitis.. Fecal material seen in the colon.The appendix is not demonstra dharmesh. Small Bowel: Normal. No obstruction. Peritoneum/mesentery: No free air.. No mesenteric lymphadenopathy. --RETROPERITONEUM: No retroperitoneal lymphadenopathy. --ARTERIES: ABDOMINAL AORTA: Mild atheromatous disease. No aneurysm or dissection. RENAL ARTERIES: Normal. Mild atherosclerotic changes on the left side. CELIAC AXIS: Normal. SMA: Normal. NALLELY: Normal. ILIAC AND VISUALIZED FEMORAL ARTERIES: Mild atheromatous disease. MESENTERIC ARTERIES: Normal. IMPRESSION: CHEST: 1. No aneurysmal dilatation or dissection seen in the aorta. 2. Cardiomegaly with pericardial effusion and right-sided failure. 3. Pulmonary hypertension 4. Bilateral pleural effusion more on the left side with adjacent atelectasis versus pneumonia. ABDOMEN/PELVIS: 1. No aneurysmal dilatation of dissection. 2. Fat infiltration of the liver. 3. Minimal fluid in the left paracolic gutter and around the spleen. 4. Constipation. 5. Edematous subcutaneous tissues suggestive of July volume lobe. 6. Atrophic pancreas. Reviewed, dictated and finalized at location A. IMPRESSION: CHEST: 1. No aneurysmal dilatation or dissection seen in the aorta. 2. Cardiomegaly with pericardial effusion and right-sided failure. 3. Pulmonary hypertension 4. Bilateral pleural effusion more on the left side with adjacent atelectasis versus pneumonia. ABDOMEN/PELVIS: 1. No aneurysmal dilatation of dissection. 2. Fat infiltration of the liver. 3. Minimal fluid in the left paracolic gutter and around the spleen. 4. Constipation. 5. Edematous subcutaneous tissues suggestive of October volume lobe. 6. Atrophic pancreas.
--- OUTSIDE RECORDS SUMMARY | 2025-02-21 17:23 | XMS_ITS | Encounter Summary ---
Author Organization [facility] Address [address] [place] [address] Phone Care Team Providers Care Catering And Events Manager Name Role Phone Oswaldo Serrano MD Primary Care Provider [phone] Angel Crowe DPCiara Unavailable [phone] Mora Fritz Unavailable Unavailable Ok Jorge MD Unavailable Orlin Urbina APRN, CLOTH CHECKER Unavailable [phone] Reason for Visit * Reason Comments Medication Refill Encounter Details Date Type Department Care Team (Late st Contact Info) Description 10/14/2021 Refill [facility] - Family Medicine - [place] [address] [place] [address] Oswaldo Serrano MD #[address] [address] Medication Refill Social History Tobacco Use Types [...] COVID-19? No / Unsure 10/07/2021 3:45 PM EMERGENCY DEPARTMENT PHYSICIAN documented as of this encounter Miscellaneous Notes [...] Hearn 05/14/21 Office Visit Connor Yuan APRN, CLOTH CHECKER [facility] Dhirja 02/27/21 Office Visit Oswaldo Serrano MD [facility] 02/16/21 Office Visit Oswaldo Serrano MD [facility] 01/14/21 Office Visit Connor Yuan APRN, CLOTH CHECKER [facility] Dhiraj 12/19/20 Office Visit Oswaldo Serrano MD [facility] [place] 12/18/20 Telemedicine Oswaldo Serrano MD [facility] [place] 12/08/20 Telemedicine Oswaldo Serrano MD [facility] Dhiraj 11/07/20 Telemedicine Connor Yuan APRN, YUDI [facility] Showing recent visits within past 365 days and meeting all other requirements Future Appointments Date Type Provider Dept 01/05/22 Appointment Oswaldo Serrano MD [facility] Dhiraj Showing future appointments within next 90 days and meeting all other requirements GENCY DEPARTMENT PHYSICIAN documented in this encounter Plan of Treatment Upcoming Encounters Date Type Department Care Team (Late st Contact Info) Description 02/28/2025 3:30 [address] [facility] Medical [facility] - Endocrinology - [place] [address]2 [facility] [place] [address] Ok Jorge MD #2 [facility] [address] [place] [address] 03/20/2025 2:30 PM CDT Office Visit [facility] - Family Medicine - [place] [address]2 [place] [address] Oswaldo Serrano MD #2 [facility] [address] [place] [address] 07/30/2025 2:45 PM CDT Office Visit [facility] UR[facility]Y #2 [facility] [place] [address] Orlin Urbina APRN, CLOTH CHECKER #2 [facility] [place] [address] documented as of this encounter Visit Diagnoses Not on filedocumented in this encounter Additional Health Concerns Assessment Noted Time PHQ-9 Depression Total Score: 2 07/18/20 20 4:26 PM CDT documented as of this encounter Care Teams Catering And Events Manager Relationship Specialty Start Date End Date Oswaldo Serrano MD #2 [facility] [address] [place] [address] PCP - General Family Medicine 05/19/17 Angel Crowe DPM #2 [facility] [address] [place] [address] Consulting Physician Podiatry 06/16/17 Mora Fritz Behavioral Health Navigator 06/15/18 Ok Jorge MD #2 [facility] [address] [place] [address] Consulting Physician Endocrinology 05/12/22 Orlin Urbina, RN GASTROENTEROLOGY, CLOTH CHECKER #2 [place] [address] Nurse Practitioner Advanced Practice Nurse 11/09/22 documented as of this encounter
--- OUTSIDE RECORDS SUMMARY | 2025-02-21 17:23 | XMS_ITS | Encounter Summary ---
Author Organization [facility] Address [address] [place] [address] Phone Care Team Providers Care Utility Engineer Name Role Phone Oswaldo Serrano MD Primary Care Provider [phone] Angel Crowe DPCiara Unavailable [phone] Mora Fritz Unavailable Unavailable Ok Jorge MD Unavailable Orlin Urbina APRN, DIAMOND DIE POLISHER Unavailable [phone] Reason for Visit * Reason Comments Medication Refill Encounter Details Date Type Department Care Team (Late st Contact Info) Description 01/15/2022 Refill [facility] - Family Medicine - [place] [address] [place] [address] Oswaldo Serrano MD #[address] [address] Medication Refill Social History Tobacco Use Types [...] Description 02/28/2025 3:30 PM CDT Office Visit [facility] Medical [facility] - Endocrinology - [place] [address]2 [facility] [place] [address] Ok Jorge MD #[address] [place] [address] 03/20/2025 2:30 PM CDT Office Visit [facility] Medical [facility] - Family Medicine - [place] [address] [place] [address] Oswaldo Serrano MD #[address] [address] 07/30/2025 2:45 PM CDT Office Visit [facility]Y #2 [facility] [place] [address] Orlin Urbina APRN, DIAMOND DIE POLISHER [address] [place] [address] documented as of this encounter Visit Diagnoses Not on filedocumented in this encounter Additional Health Concerns Assessment Noted Time PHQ-9 Depression Total Score: 2 07/18/20 20 4:26 PM CDT documented as of this encounter Care Teams Utility Engineer Relationship Specialty Start Date End Date Oswaldo Serrano MD #[address] [place] [address] PCP - General Family Medicine 05/19/17 Angel Crowe DPM #[address] [place] [address] Consulting Physician Podiatry 06/16/17 Mora Fritz [place] Behavioral Health Navigator 06/15/18 Ok Jorge MD #[address] [address] Consulting Physician Endocrinology 05/12/22 Orlin Urbina, DATE PULLER, DIAMOND DIE POLISHER #2 [place] [address] Nurse Practitioner Advanced Practice Nurse 11/09/22 documented as of this encounter
--- OUTSIDE RECORDS SUMMARY | 2025-02-21 17:23 | XMS_ITS | Encounter Summary ---
Author Organization [facility] Address [address] [place] [address] Phone Care Team Providers Care Court Supervisor Name Role Phone Oswaldo Serrano MD Primary Care Provider [phone] Angel Crowe DPCiara Unavailable [phone] Mora Fritz Unavailable Unavailable Ok Jorge MD Unavailable Orlin Urbina APRN, REGULATORY COMPLIANCE ENGINEER Unavailable [phone] Reason for Visit * Reason Comments Medication Refill Encounter Details Date Type Department Care Team (Late st Contact Info) Description 09/11/2021 Refill [facility] - Family Medicine - [place] [address] [place] [address] Oswaldo Serrano MD #[address] [address] Medication Refill Social History Tobacco Use Types [...] ago Acute bronchitis, unspecified organism [facility] Family [facility] - Connor Hutchinson APRN, YUDI 6 months ago [facility]do Moreno MD 6 months ago B12 deficiency [facility] Oswaldo Moreno MD 8 months ago UTI symptoms [facility] - Connor Hutchinson APRN, YUDI Upcoming Appointments Future Appointments In 3 weeks Oswaldo Serrano MD [facility] - Family Medicine - [place]n In 1 month Ok Jorge MD [facility] - Endocrinology - Dhiraj [facility] UPMCDarlene WELFARE CASE WORKER - Recent and Past Visits Recent [...] with SSRI for at least 6 months TRICAL SUPERVISOR documented in this encounter Plan of Treatment Upcoming Encounters Date Type Department Care Team (Late st Contact Info) Description 02/28/2025 3:30 PM CDT Office Visit [facility] - Endocrinology - [place] [address]2 [place] [address] Ok Jorge MD #[address] [place] [address] 03/20/2025 2:30 PM CDT Office Visit [facility] - Family Medicine - [place] [address]2 [facility] [address] Oswaldo Serrano MD #2 [facility] [address] [place] [address] 07/30/2025 2:45 PM CDT Office Visit [facility] #2 [place] [address] Orlin Urbina, SENIOR PRODUCTION MANAGER, REGULATORY COMPLIANCE ENGINEER #2 [facility] [place] [address] documented as of this encounter Visit Diagnoses Not on filedocumented in this encounter Additional Health Concerns Assessment Noted Time PHQ-9 Depression Total Score: 2 07/18/20 20 4:26 PM CDT documented as of this encounter Care Teams Court Supervisor Relationship Specialty Start Date End Date Oswaldo Serrano MD #[address] [place] [address] PCP - General Family Medicine 05/19/17 Angel Crowe DPM #2 [facility] [address] [place] [address] Consulting Physician Podiatry 06/16/17 Mora Fritz [place] Behavioral Health Navigator 06/15/18 Ok Jorge MD #2 [facility] [address] [place] [address] Consulting Physician Endocrinology 05/12/22 Orlin Urbina APRN, REGULATORY COMPLIANCE ENGINEER #2 [place] [address] Nurse Practitioner Advanced Practice Nurse 11/09/22 documented as of this encounter
--- OUTSIDE RECORDS SUMMARY | 2025-02-21 17:23 | XMS_ITS | Data Portability ---
Author Organization [place] - [facility] [employer], Main Office Address [address] [place] [address] Assessment Encounter Date Assessment Date Assessment LastModified by Organization Details LastModified Time 11/16/2023 11/16/2023 Assessment: Very severe OSAHS, AHI = 46 PLMD Plan: The following were reviewed and explained to the patient: primary care/referral note [facility] home sleep study 07/09/22 AHI = 46 [facility] titration sleep study 10/30/23 Respironics small DreamWear [...] carrier. Patient will setup an appointment with [facility] for supplies and pressure adjustments. A major [...] were reviewed and explained to the patient: [facility] home sleep study 07/09/22 AHI = 46 [facility] titration sleep study 10/30/23 Respironics small DreamWear [...] carrier. Patient will setup an appointment with [facility] for supplies and pressure adjustments. A major [...] were reviewed and explained to the patient: [facility] home sleep study 07/09/22 AHI = 46 [facility] titration sleep study 10/30/23 Respironics small DreamWear [...] care store. Patient will change to an xiqq-hsx-wlwy mask. Educated the patient on problems and [...] carrier. Patient will setup an appointment with [facility] for supplies and pressure adjustments. A major [...] were reviewed and explained to the patient: [facility] home sleep study 07/09/22 AHI = 46 [facility] titration sleep study 10/30/23 Respironics small DreamWear [...] care store. Patient will change to an taur-vny-skre mask. Educated the patient on problems and [...] carrier. Patient will setup an appointment with [facility] for supplies and pressure adjustments. A major [...] Modified Time Details Appointments None recorded. Lab ferritin, serum or plasma 2023 025 [facility], [address] [place], [address], 5 09:05:29 vitamin E, serum 2023 025 [facility], [address] [place], [address], 5 09:05:29 ferritin, serum or plasma 2023 024 [email or web address] 2 [facility], [address] [place], [address], 4 10:55:53 vitamin E, serum 2023 024 [email or web address] 2 [facility], [address] [place], [address], 4 10:55:53 ferritin, serum or plasma 2023 024 [email or web address] 5 [facility], [address] [place], [address], 4 09:26:38 vitamin E, serum 2023 024 [email or web address] 5 [facility], [address] [place], [address], 4 09:26:38 iron + TIBC + ferritin, serum 2023 024 [facility] (Lab), [address] [place], [address], 4 18:22:12 folate, RBC 2023 024 [facility] (Lab), [address] [place], [address], 4 05:13:29 vitamin B12, serum 2023 024 [facility] (Lab), [address] [place], [address], 4 18:22:12 ESR (erythrocy te sedimentat ion rate), blood 2023 024 [facility] (Lab), [address] [place], [address], 4 18:22:12 hemoglobin + hematocrit , blood [email or web address] [place] [address] (Lab), [address] [place], [address], 4 11:05:08 bun (blood urea nitrogen), serum or plasma 2023 [email or web address] [place] [address] (Lab), [address] [place], [address], 4 11:05:08 creatinine , serum or plasma [address] [place] [address] (Lab), [address] [place], [address], 4 11:05:08 magnesium, serum or plasma 2023 024 [email or web address] 5 [facility] (Lab), [address] [place], [address], 4 11:05:08 vitamin E, serum 2023 024 [facility] (Lab), [address] [place], [address], 4 05:13:29 Referral None recorded. Procedures None recorded. Surgeries None recorded. Imaging None recorded. Medication Orders Vitamin C 500 mg tablet 2023 [facility][id number], [address], [place], [place], [id number], 4 15:41:27 ferrous sulfate 325 mg (65 mg iron) tablet 2023 [facility] #[id number], [address], [place], [place], [id number], 4 15:41:28 vitamin E (dl, acetate) 90 mg (200 unit) capsule 2023 [facility] #13766, [address], [place], [place], [id number], 4 15:41:27 Vitamin C 500 mg tablet 2023 024 [facility] #44317, [address], [id number], 4 15:15:40 ferrous sulfate 325 mg (65 mg iron) tablet 2023 024 [facility] #02415, [address], [place], [place], [id number], 4 15:15:41 vitamin E (dl, acetate) 90 mg (200 unit) capsule 2023 024 [facility] #21407, [address], [place], [place], [id number], 4 15:15:42 Vitamin C 500 mg tablet 2023 024 [facility] #19013, [address], [place], [place], [id number], 4 12:51:34 ferrous sulfate 325 mg (65 mg iron) tablet 2023 024 [facility] #35709, [address], [place], [place], [id number], 4 12:51:30 vitamin E (dl, acetate) 90 mg (200 unit) capsule 2023 024 [facility] #31834, [address], [place], [place], [id number], 12:51:36 Patient TargetsNo targets recorded. Patient InstructionsNo instructions [...] Address Organization Details Recorded Time Hypercholeste rolemia [id number] Active Not Available [facility] 3 06:56:31 Depressive disorder 88147630 Active Not Available [facility] 3 06:56:31 Arthritis 0617768 Active Not Available [facility] 3 06:56:31 Hypertensive disorder 94436567 Active Not Available [facility] 3 06:56:31 Anxiety 78531889 Active Not Available [facility] 3 06:56:31 Diabetes mellitus 36686466 Active Not Available [facility] 3 06:56:31 Nocturnal enuresis 5653783 Active Not Available [facility] 3 06:56:31 Obstructive sleep apnea syndrome 84726839 Active 2023 Toro Hernandez MD [address], [address], [place], [address] , [employer] 4 15:36:03 Periodic limb movement disorder 889588056 Active 2023 Toro Hernandez MD [address], [place], [address] , [employer] 4 15:42:10 Vitamin E deficiency 96988207 Active 2023 Toro Hernandez MD [address], [place], [address] , [employer] 4 12:40:48 Iron deficiency 08031967 Active 2023 Toro Hernandez MD [address], [place], [address] , [employer] 4 12:40:59 Notes:Medical History: Delay ed sleep phase syndrome Bilateral tinnitus Erythrocytosis Obesity with very severe OSAHS, AHI = 46, 10/30/23, on CPAP c/o IVRC T2DM Hyperlipidemia Hypertension CAD Atrial fibrillation on Xarelto CHF EF 40% Pacemaker-twiddler's syndrome DEE Urge urinary incontinence Iron deficiency PLMD Procedure History: Appendectomy 1980 Cholecystectomy 2012 3 coronary artery stent placement 2013 Biotronik dual chamber ICD placement 2017 Lead replacement, revision and AICD pocket refashioning 2018 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 Procedures Surgical History Date Name Laterality Status Provider Name and Address Organization Details Recorded Time cholecystectomy completed Fidelia Henderson MA [employer] 11/16/2023 14:50:38 Appendectomy completed SHAWN Rousseau [employer] [facility] [employer] 11/16/2023 14:50:56 fluoroscopy guided percutaneous transluminal angioplasty of bilateral iliac arteries and insertion of bilateral iliac artery stents with contrast completed Fidelia Henderson MA [employer] 11/16/2023 14:51:15 Imaging Results Imaging Date Name Status LastModified by [facility] Details LastModified Time 10/29/2023 polysomnogram, titration study completed Information not available 11/04/2023 17:47:28 07/09/2022 home sleep study completed [facility] Information not available 11/15/2023 14:28:15 Procedure Notes None recorded. Medical Equipment None Reported. Allergies Allergen ID Allergen Name Allergen Category Reaction Reaction Severity Criticality Documentation Date Start Date Code Code System Note Provider Name and Address Organization Details Recorded Time 94858 Substance with sulfonami de structure and antibacte rial mechanism of action (substanc e) medicatio n Not available Not available Not available 11/16/2023 19650 8003 SNOMED SHAWN [place], [place] [employer] 14:40:52 Medications Name Sig Start Date Stop [...] Available simvastatin 40 mg tablet 11/01 completed N [id number]|2025-02-21 17:10:00|2025-02-21 18:20:00|ECG_ITS|ATUL|Cardiology|[id number]|"Test Date: 2025-02-21 18:20:05 Measurements Intervals [place] Rate: 76 P: 0 ND: 0 QRS: 135 QRSD: 106 T: -28 QT: 407 QTc: 459 Interpretive Statements ATRIAL FIBRILLATION POSSIBLE RIGHT VENTRICULAR HYPERTROPHY [SOME/ALL OF: PROMINENT R IN V1, LATE TRANSITION, RAD, JOSEPH, SSS] POSSIBLE ANTERIOR MYOCARDIAL INFARCTION , OF INDETERMINATE AGE [30 ms Q WAVE IN V3/V4, OR R < 0.2 mV IN V4] NONSPECIFIC T-WAVE ABNORMALITY ARTIFACT GREATLY LIMITS INTERPRETATION ABNORMAL ECG Electronically Signed On 02-22-2025 09:51:23 CDT by Adal Lou M.D. "
--- OUTSIDE RECORDS SUMMARY | 2025-02-21 17:23 | XMS_ITS | Encounter Summary ---
Author Organization [facility] Address [address] [place] [address] Phone Care Team Providers Care Underwriting Analyst Name Role Phone Oswaldo Serrano MD Primary Care Provider [phone] Angel Crowe DPM Unavailable [phone] Mora Fritz Unavailable Unavailable Ok Jorge MD Unavailable Orlin Urbina APRN, DYEING MACHINE FEEDER Unavailable [phone] Reason for Visit * Reason Comments Medication Refill Encounter Details Date Type Department Care Team (Late st Contact Info) Description 01/19/2022 Refill [facility] [place] [facility] [address] [place] [address] Orlin Urbina APRN, DYEING MACHINE FEEDER [address] [place] [address] Medication Refill Social History Tobacco Use Types [...] Description 02/28/2025 3:30 PM CDT Office Visit [facility] Group - Endocrinology - [place] [address] [place] [address] Ok Jorge MD #2 [facility] [address] [place] [address] 03/20/2025 2:30 PM CDT Office Visit [facility] Medical [facility] - Family Medicine [facility] #[address] [place] [address] Oswaldo Serrano MD #2 [facility] [address] [place] [address] 07/30/2025 2:45 PM CDT Office Visit [facility] #[address] [place] [address] Orlin Urbina APRN, DYEING MACHINE FEEDER [address] [place] [address] documented as of this encounter Visit Diagnoses Diagnosis Nocturnal enuresis OAB (overactive bladder) Hypertonicity of bladder documented in this encounter Additional Health Concerns Assessment Noted Time PHQ-9 Depression Total Score: 2 07/18/20 20 4:26 PM CDT documented as of this encounter Care Teams Underwriting Analyst Relationship Specialty Start Date End Date Oswaldo Serrano MD #2 [facility] [address] [place] [address] PCP - General Family Medicine 05/19/17 Angel Crowe DPM #2 [facility] [address] [place] [address] Consulting Physician Podiatry 06/16/17 Mora Fritz Behavioral Health Navigator 06/15/18 Ok Jorge MD #2 [facility] [address] [place] [address] Consulting Physician Endocrinology 05/12/22 Orlin Urbina APRN, DYEING MACHINE FEEDER [address] [place] [address] Nurse Practitioner Advanced Practice Nurse 11/09/22 documented as of this encounter
--- OUTSIDE RECORDS SUMMARY | 2025-02-21 17:23 | XMS_ITS | Encounter Summary ---
Author Organization [facility] Address [address] [place] [address] Phone Care Team Providers Care Garage Door Hanger Name Role Phone Oswaldo Serrano MD Primary Care Provider Angel Crowe DPM Unavailable [phone] Mora Fritz Unavailable Unavailable Ok Jorge MD Unavailable Orlin Urbina APRN, YUDI Unavailable [phone] Reason for Visit * Reason Comments Medication Refill Encounter Details Date Type Department Care Team (Late st Contact Info) Description 10/14/2021 Refill [facility] [address] [place] [address] Edwar Romo MD [address], [address] [address] Medication Refill Social History Tobacco Use Types [...] COVID-19? No / Unsure 10/07/2021 3:45 PM PAVING CREW FOREMAN documented as of this encounter Miscellaneous Notes * Telephone Encounter - Edwar Romo MD - 10/20/2021 11:28 AM CST Needs follow up appt before refilling medication. NG CREW FOREMAN * Telephone Encounter - Peggy Parson RN [...] [facility] 05/14/21 Office Visit Connor Yuan, SALESPERSON FLORIST SUPPLIES, [facility] 02/27/21 Office Visit Oswaldo Serrano MD [facility] 02/16/21 Office Visit Oswaldo Serrano MD [facility] 01/14/21 Office Visit Connor Yuan APRN, YUDI [facility] 12/19/20 Office Visit Oswaldo Serrano MD [facility] 12/18/20 Telemedicine Oswaldo Serrano MD [facility] 12/08/20 Telemedicine Oswaldo Serrano MD [facility] 11/07/20 Telemedicine Connor Yuan APRN, JOWL TRIMMER [facility] Showing recent visits within past 365 days and meeting all other requirements Future Appointments Date Type Provider Dept 01/05/22 Appointment Oswaldo Serrano MD [facility] Showing future appointments within next 90 days and meeting all other requirements NG CREW FOREMAN documented in this encounter Plan of Treatment Upcoming Encounters Date Type Department Care Team (Late st Contact Info) Description 02/28/2025 3:30 PM CDT Office Visit [facility] Medical [facility] - Endocrinology - [place] [address] [facility] [place] [address] Ok Jorge MD #2 [facility] [address] [place] [address] 03/20/2025 2:30 PM CDT Office Visit [facility] - Family Medicine - [place] [address]2 [place] [address] Oswaldo Serrano MD #2 [facility] [address] [place] [address] 07/30/2025 2:45 PM CDT Office Visit [facility]IAN [facility] #[address] [place] [address] Orlin Urbina APRN, JOWL TRIMMER [address] [place] [address] documented as of this encounter Visit Diagnoses Diagnosis Nocturnal enuresis documented in this encounter Additional Health Concerns Assessment Noted Time PHQ-9 Depression Total Score: 2 07/18/20 20 4:26 PM CDT documented as of this encounter Care Teams Garage Door Hanger Relationship Specialty Start Date End Date Oswaldo Serrano MD #2 [facility] [address] [place] [address] PCP - General Family Medicine 05/19/17 Angel Crowe DPM #2 [facility] [address] [place] [address] Consulting Physician Podiatry 06/16/17 Mora Fritz [place] Behavioral Health Navigator 06/15/18 Ok Jorge MD #2 [facility] [address] [place] [address] Consulting Physician Endocrinology 05/12/22 Orlin Urbina APRN, JOWL TRIMMER [address] [place] [address] Nurse Practitioner Advanced Practice Nurse 11/09/22 documented as of this encounter
--- OUTSIDE RECORDS SUMMARY | 2025-02-21 17:23 | XMS_ITS | Encounter Summary ---
Author Organization [facility] Address [address] [place] [address] Phone Care Team Providers Care Mission Systems Engineer Name Role Phone Oswaldo Serrano MD Primary Care Provider Angel Crowe DPM Unavailable [phone] Mora Fritz Unavailable Unavailable Ok Jorge MD Unavailable Orlin Urbina APRN, YUDI Unavailable [phone] Reason for Visit * Reason Comments Medication Refill Encounter Details Date Type Department Care Team (Late st Contact Info) Description 10/28/2021 Refill [facility] [address] [place] [address] Edwar Romo MD #[address] [facility], [address] [address] Medication Refill Social History Tobacco Use Types [...] COVID-19? No / Unsure 10/27/2021 3:19 PM FACILITIES OPERATIONS TECHNICIAN documented as of this encounter Plan of Treatment Upcoming Encounters Date Type Department Care Team (Late st Contact Info) Description 02/28/2025 3:30 PM CDT Office Visit [facility] Medical Group - Endocrinology - [place] [address] [place] [address] Ok Jorge MD #[address] [phone] 03/20/2025 2:30 PM CDT Office Visit [facility] Medical [facility] - Family Medicine [facility] #2 [place] [address] Oswaldo Serrano MD #[address] [address] 07/30/2025 2:45 PM CDT Office Visit [facility] #[address] [place] [address] Orlin Urbina APRN, GEOMORPHOLOGY TEACHER #[address] [place] [address] documented as of this encounter Visit Diagnoses Diagnosis Nocturnal enuresis documented in this encounter Additional Health Concerns Assessment Noted Time PHQ-9 Depression Total Score: 2 07/18/20 20 4:26 PM CDT documented as of this encounter Care Teams Mission Systems Engineer Relationship Specialty Start Date End Date Oswaldo Serrano MD #2 [facility] [address] [place] [address] PCP - General Family Medicine 05/19/17 Angel Crowe DPM #2 [facility] [address] [place] [address] Consulting Physician Podiatry 06/16/17 Mora Fritz [place] Behavioral Health Navigator 06/15/18 Ok Jorge MD #2 [facility] [address] [place] [address] Consulting Physician Endocrinology 05/12/22 Orlin Urbina, CLAIM 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, GEOMORPHOLOGY TEACHER #[address] [place] [address] Nurse Practitioner Advanced Practice Nurse 11/09/22 documented as of this encounter
--- OUTSIDE RECORDS SUMMARY | 2025-02-21 17:24 | XMS_ITS | Encounter Summary ---
Author Organization [facility] Address [address] [place] [address] Phone Care Team Providers Care Senior Information Systems Architect Name Role Phone Oswaldo Serrano MD Primary Care Provider Angel Crowe DPM Unavailable [phone] Mora Fritz Unavailable Unavailable Ok Jorge MD Unavailable Orlin Urbina APRN, CNP Unavailable [phone] Encounter Details Date Type Department Care Team (Late st Contact Info) Description 02/04/2025 Results Follow-Up [facility] #[address] [place] [address] Orlin Urbina APRN, MICRO COMPUTER SPECIALIST #[address] [place] [address] CULTURE, URINE Social History Tobacco Use Types Packs/Day Years Used Date Smoking Tobacco: Never Smokeless Tobacco: Never Alcohol Use Standard Drinks/Week Comments No 0 (1 standard drink = 0.6 oz pur e alcohol) [facility] Utilities Answer Date Recorded In the past 12 months has th e electric, gas, oil, or water company threatened to shut off services in your home? No 11/29/2024 Social Connection and Isolat ion Panel [NHANES] Answer Date Recorded In a typical week, how many times do you talk on the phone with family, friends, or neighbors? More than three times a week 11/29/2024 How often do you get togethe r with friends or relatives? More than three times a week 11/29/2024 How often do you attend chur ch or hindu services? Never 11/29/2024 Do you belong to any clubs o r organizations such as voodoo groups, unions, fraternal or athletic groups, or school groups? No 11/29/2024 How often do you attend meet ings of the clubs or organizations you belong to? Never 11/29/2024 Are you , , di vorced, , never , or living with a partner? 11/29/2024 AUDIT-C Answer Date Recorded Q1: How often do you have a drink containing alcohol? Never 11/29/2024 Q2: How many drinks containi ng alcohol do you have on a typical day when you are drinking? Patient does not drink Q3: How often do you have si x or more drinks on one occasion? Never 11/29/2024 Overall Financial Resource Strain (CARDIA) Answe r Date Recorded How hard is it for you to pa y for the very basics like food, housing, medical care, and heating? Very hard 11/29/2024 PHQ-2 Answer Date Recorded Total Score - Questions 1-9 2 10/11 [employer] - Occupational Stress Questionnaire Answer Date Recorded Do you feel stress - tense, restless, nervous, or anxious, or unable to sleep at night because your mind is troubled all the time - these days? To some extent 11/29/2024 Exercise Vital Sign Answer Date Recorde d On average, how many days pe r week do you engage in moderate to strenuous exercise (like a brisk walk)? 3 days 11/29/2024 On average, how many minutes do you engage in exercise at this level? 10 min 11/29/2024 Hunger Vital Sign Answer Date Recorded Within the past 12 months, y ou worried that your food would run out before you got the money to buy more. Often true 11/29/19 Within the past 12 months, t he food you bought just didn't last and you didn't have money to get more. Often true 11/29/2024 PRAPARE - Transportation Answer Date Re corded In the past 12 months, has l ack of transportation kept you from medical appointments or from getting medications? No 11/11 In the past 12 months, has l ack of transportation kept you from meetings, work, or from getting things needed for daily living? No 11/29/2024 Housing Stability Vital Sign Answer Charlie e [...] in a detention (including now)? No 11/09/2023 Housing Stability Vital Sign Answer Charlie e Recorded In the last 12 months, was t here a time when you were not able to pay the mortgage or rent on time? No 11/29/2024 In the past 12 months, how m any times have you moved where you were living? 0 11/29/2024 At any time in the past 12 m [facility], were you homeless or living in a detention (including now)? No 11/29/2024 Education Answer Date Recorded What is the [...] Description 02/28/2025 3:30 PM CDT Office Visit [facility] - Endocrinology - [employer] #2 [facility] [place] [address] Ok Jorge MD #[address] [address] 03/20/2025 2:30 PM CDT Office Visit [facility] - Family Medicine - [place] #2 [place] [address] Oswaldo Serrano MD #[address] [address] 07/30/2025 2:45 PM CDT Office Visit [facility] #2 [place] [address] Orlin Urbina APRN, MICRO COMPUTER SPECIALIST #[address] [place] [address] documented as of this encounter Visit Diagnoses Diagnosis Infection due to Enterobacter cloacae- Primary Infection due to other gram-negative organisms in conditions classified elsewhere and of unspecified site Acute cystitis without hematuria Acute cystitis documented in this encounter Additional Health Concerns Assessment Noted Time PHQ-9 Depression Total Score: 2 11/01/19 25 3:32 PM PERMASTONE MECHANIC documented as of this encounter Care Teams Senior Information Systems Architect Relationship Specialty Start Date End Date Oswaldo Serrano MD #[address] [address] PCP - General Family Medicine 05/19/17 Angel Crowe DPM #[address] [address] Consulting Physician Podiatry 06/16/17 Mora Fritz [place] Behavioral Health Navigator 06/15/18 Ok Jorge MD [address] [phone] Consulting Physician Endocrinology 05/12/22 Orlin Urbina APRN, MICRO COMPUTER SPECIALIST #[address] [place] [address] Nurse Practitioner Advanced Practice Nurse 11/09/22 documented as of this encounter
--- OUTSIDE RECORDS SUMMARY | 2025-02-21 17:24 | XMS_ITS | Clinical Summary ---
Author Organization [facility] Address [address] [place] [address] Care Team Providers Care Litigation Legal Secretary Name Role Phone Fredis Klein PAN DEVULCANIZER-AIRCRAFT SEAT UPHOLSTERER Primary Care Provider Source Comments [facility],non-owned Affiliates and Associated Physician Practices is amultiple site organization consisting of ambulatory clinics and hospital sitesin [place], [place], [place] and [place]. This disclosure is being madepursuant to the Care Everywhere program and may not contain all information available regarding this patient. Last updated 18.[facility] Allergies Active Allergy Reactions Criticality Noted Date Comments Sulfa Drugs 07/15/2016 Medications * Be aware that medications may not be up to date on this document. Alwaysverify current medications with the patient. Insulin NPH Isophane & Regular (HUMULIN 70/30 SC) Active METFORMIN & DIET MANAGE PROD PO Activ e RANITIDINE & DIET MANAGE PROD PO Activ e LISINOPRIL & DIET MANAGE PROD PO Activ e TRAMADOL & DIETARY MANAGE PROD PO Active Citalopram Hydrobromide (CELEXA PO) Active Carvedilol (COREG PO) Active OXYBUTYNIN CHLORIDE PO Active NORTRIPTYLINE HCL PO Active nitrofurantoin monohyd macro crystals (MACROBID) 100 MG capsule Take 1 Cap by mouth 2 times daily with morning and evening meal 14 Cap 0 6 Active Active Problems No known active problems Social History Tobacco Use Types Packs/Day Years Used Date Smoking Tobacco: Never Assessed Comments Unknown Sex and Gender Information Value Date Recorded Sex Assigned at Not on file Legal Sex Female 4:45 PM CDT Gender Identity Not on file Sexual Orientation Not on file Last Filed Vital Signs Vital Sign Reading Time Taken Comments Blood Pressure 122/84 07/15/2016 4:59 PM CDT Pulse 103 07/15/2016 4:59 PM CDT Temperature 37.1 C (98.8 F) 07/15/2016 4:59 PM CDT Respiratory Rate 18 07/15/2016 4:59 PM CDT [...] SCREENING 1960 LIPID TESTING 1960 MAMMOGRAM 1961 HIV SCREENING 1976 HEPATITIS C SCREENING 12/15/1979 DTAP/TDAP/TD VACCINES (1 - Tdap) 1980 PNEUMOCOCCAL VACCINE 50+ (1 of 1 - PCV) 12/20/2011 ZOSTER VACCINE (1 of 2) 12/20/2011 COVID-19 VACCINE ( - 2023-2 5 season) 2024 DEPRESSION SCREENING 10/10/2024 INFLUENZA VACCINE (Season Ended) 2025 Respiratory Syncytial Virus (RSV) Vaccine Pt: or [...] patient's age to complete this topic MENINGOCOCCAL (Group B) VACC INE SHARED DECISION-MAKING Aged Out No longer eligibl e based on patient's age to complete this topic MENINGOCOCCAL GROUPS A/C/Y/W VACCINE Aged Out No longer eligible b ased on patient's age to complete this topic Insurance MEDICARE [facility] MEDICAID - OUT OF STATE [facility] Care Teams Litigation Legal Secretary Relationship Specialty Start Date End Date Fredis Klein, PAN DEVULCANIZER-AIRCRAFT SEAT UPHOLSTERER [address] [place] [address] PCP - General 08/08/18
--- OUTSIDE RECORDS SUMMARY | 2025-02-21 17:24 | XMS_ITS ---
Author Organization [facility] Address [address] [place], [place] [id number] Care Team Providers Care Chucking Machine Set Up Operator Name Role Phone JEREMÍAS MAGANA Primary Care Provider Encounters Encounter Location Date Provider Diagnosis [facility] [address] [place], [place] [id number] 01/09/2025 JEREMÍAS MAGANA Plan Of Treatment Next Appt Details Provider Name:JEREMÍAS Mills, 08/01/2025 01:00:00 PM, [address], [address], [place], [place], [id number], Progress Notes * Daria RODRIGUEZOB:[birth year] (64 yo F)Acc No.[id number]:01/09/2025 Progress Notes Patient: Loretta NAM Provider: Erick Magana M.D. :1960 A ge:64 Y S ex:Female Date:01/09/2025 Address:[address] [facility] Subjective: * Chief Complaints: * * Medical History: Objective: * Vitals: Assessment: Plan: * Treatment: * Billing Information: * Visit Code: * Procedure Codes: * Electronic signature of MARJORIE MAGANA MD on 02/21/2025 at 05:24 PM CDT Sign off status: Pending * Provider: Erick Magana M.D. Date: 0 01/09/2025 Generated for Howard wang/Latoya/Sumeetitting on: 0 02/21/2025 05:24 PM CDT
--- OUTSIDE RECORDS SUMMARY | 2025-02-21 17:24 | XMS_ITS | Encounter Summary ---
Author Organization [facility] Address [address] [place] [address] Phone Care Team Providers Care Chairman And Chief Executive Officer Name Role Phone Oswaldo Serrano MD Primary Care Provider [phone] Angel Crowe DPM Unavailable [phone] Mora Fritz Unavailable Unavailable Ok Jorge MD Unavailable Orlin Urbina APRN, MAINTENANCE GROUNDMAN Unavailable [phone] Reason for Visit * Reason Comments Medication Refill Encounter Details Date Type Department Care Team (Late st Contact Info) Description 11/29/2024 Refill [facility] [place] [facility] [address] [place] [address] Orlin Urbina APRN, MAINTENANCE GROUNDMAN [address] [place] [address] Medication Refill Social History Tobacco Use Types Packs/Day Years Used Date Smoking Tobacco: Never Smokeless Tobacco: Never Alcohol Use Standard Drinks/Week Comments No 0 (1 standard drink = 0.6 oz pur e alcohol) [facility] Utilities Answer Date Recorded In [...] often do you attend chur ch or spiritism services? Never 11/29/2024 Do you belong to any clubs o r organizations such as sabianism groups, unions, fraternal or athletic groups, or [...] Total Score - Questions 1-9 2 10/11 [facility] [place] of Occupat ional Health - Occupational Stress [...] in a retirement (including now)? No 11/09/2023 Housing Stability Vital [...] in the past 12 m [facility], were you homeless or living in a retirement (including now)? No 11/29/2024 Education Answer Date [...] Score Answer Date of Assessment Author 0 11/29/2024 11:52 AM AMBER [employer] Background * Q1: How often do you have a drink containing alcohol? Answer Date of Assessment Author Never 11/29/2024 11:52 AM HAND SCREEN PRINTER Mychart, System Background * Q2: How many drinks containing alcohol do you have on a typical day when you are drinking? Answer Date of Assessment Author Patient does not drink 11/29/2024 11:52 AM HAND SCREEN PRINTER stephon, System Background * Q3: How often do you have six or more drinks on one occasion? Answer Date of Assessment Author Never 11/29/2024 11:52 AM HAND SCREEN PRINTER Mychart, System Background documented as of this encounter Miscellaneous Notes * Telephone Encounter - Orlin Urbina APRN, CNP - 12/10/2024 10:18 AM HAND SCREEN PRINTER duplicate SCREEN PRINTER * Telephone Encounter - Stephanie Ortiz RN - 11/29/2024 12:39 PM CST Medication failed the protocol, provider to review and approve the medication order if appropriate. Requested Prescriptions Pending Prescriptions Disp Refills Gemtesa 75 MG Tablet [Pharmacy Med Name: GEMTESA 75MG TABLETS] 30 Tablet Sig: Take 1 Tablet by mouth daily. Urinary Beta-3 Adrenergic Agonist Protocol Failed - 11/29/2024 12:39 PM Failed - GFR greater than or equal to 30 in past 12 months GFR, EST. NONAFRICAN Date Value Ref Range Status 11/09/2023 54 (L) >=60 Final Failed - No conflicting beta blockers on med list Passed - Blood pressure on record in past 12 months Passed - Visit with relevant provider in past 12 months or upcoming 90 days Recent Visits Date Type Provider Dept 11/01/24 Office Visit Oswaldo Serrano MD [facility] 08/10/24 Office Visit Connor Yuan APRN, CNP [facility] 03/08/24 Telemedicine Oswaldo Serrano MD [facility] 02/23/24 Office Visit Oswaldo Serrano MD [facility] 01/24/24 Office Visit Orlin Urbina APRN, CNP [facility] [place] Showing recent visits within past 365 days and meeting all other requirements Today's Visits Date Type Provider Dept 11/29/24 Appointment Oswaldo Serrano MD [facility] Showing today's visits and meeting all other requirements Future Appointments No visits were found meeting these conditions. Showing future appointments within next 90 days and meeting all other requirements SCREEN PRINTER documented in this encounter Plan of Treatment Upcoming Encounters Date Type Department Care Team (Late st Contact Info) Description 02/28/2025 3:30 PM CDT Office Visit [facility] - Endocrinology - [place] [address] [place] [address] Ok Jorge MD #2 [facility] [address] [place] [address] 03/20/2025 2:30 PM CDT Office Visit [facility] - Family Medicine - [place] [address]2 [place] [address] Oswaldo Serrano MD #2 [facility] [address] [place] [address] 07/30/2025 2:45 PM CDT Office Visit [facility] UROLOGY #[address] [place] [phone] Orlin Urbina APRN, MAINTENANCE GROUNDMAN [address]2 [place] [address] documented as of this encounter Visit Diagnoses Not on filedocumented in this encounter Additional Health Concerns Assessment Noted Time PHQ-9 Depression Total Score: 2 11/01/19 3:32 PM HAND SCREEN PRINTER documented as of this encounter Care Teams Chairman And Chief Executive Officer Relationship Specialty Start Date End Date Oswaldo Serrano MD #2 [facility] [address] [place] [address] PCP - General Family Medicine 05/19/17 Angel Crowe DPM #2 [facility] [address] [place] [address] Consulting Physician Podiatry 06/16/17 Mora Fritz [place] Behavioral Health Navigator 06/15/18 Ok Jorge MD #[address] [address] Consulting Physician Endocrinology 05/12/22 Orlin Urbina, LINE WELDER, MAINTENANCE GROUNDMAN [address]2 [place] [address] Nurse Practitioner Advanced Practice Nurse 11/09/22 documented as of this encounter
--- OUTSIDE RECORDS SUMMARY | 2025-02-21 17:24 | XMS_ITS | Encounter Summary ---
Author Organization [facility] Address [address] [place] [address] Phone Care Team Providers Care Internet Marketing Strategist Name Role Phone Oswaldo Serrano MD Primary Care Provider [phone] Angel Crowe DPM Unavailable [phone] Mora Fritz Unavailable Unavailable Ok Jorge MD Unavailable Orlin Urbina APRN, L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 Unavailable [phone] Reason for Visit * Reason Comments Medication Refill Encounter Details Date Type Department Care Team (Late st Contact Info) Description 04/15/2021 Refill [facility] [address] [place] [address] Oswaldo Serrano MD #[address] [address] Medication Refill Social History Tobacco [...] Description 02/28/2025 3:30 PM CDT Office Visit [facility] - Endocrinology - [place] [address]2 [place] [address] Ok Jorge MD #2 [facility] [address] [place] [address] 03/20/2025 2:30 PM CDT Office Visit [facility] - Family Medicine [facility] #2 [place] [phone] Oswaldo Serrano MD #2 [facility] [address] [place] [address] 07/30/2025 2:45 PM CDT Office Visit [facility] #2 [place] [phone] Orlin Urbina APRN, [employer]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 [address]2 [place] [address] documented as of this encounter Visit Diagnoses Not on filedocumented in this encounter Additional Health Concerns Infection Onset Date Last Indicated Resolved Time COVID - 19 07/28/2021 07/29/2021 08/17/2021 12:1 6 AM DIABETES TERRITORY MANAGER Assessment Noted Time PHQ-9 Depression Total Score: 2 07/18/20 20 4:26 PM CDT documented as of this encounter Care Teams Internet Marketing Strategist Relationship Specialty Start Date End Date Oswaldo Serrano MD #2 [facility] [address] [place] [address] PCP - General Family Medicine 05/19/17 Angel Crowe DPM #2 [facility] [address] [place] [address] Consulting Physician Podiatry 06/16/17 Mora Fritz [place] Behavioral Health Navigator 06/15/18 Ok Jorge MD #2 [facility] [address] [place] [address] Consulting Physician Endocrinology 05/12/22 Orlin Urbina APRN, 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 [address] [place] [address] Nurse Practitioner Advanced Practice Nurse 11/09/22 documented as of this encounter
--- OUTSIDE RECORDS SUMMARY | 2025-02-21 17:24 | XMS_ITS | Encounter Summary ---
Author Organization [facility] Address [address] [place] [address] Phone Care Team Providers Care Binder Stripper Machine Name Role Phone Oswaldo Serrano MD Primary Care Provider [phone] Angel Crowe DPM Unavailable [phone] Mora Fritz Unavailable Unavailable Ok Jorge MD Unavailable Orlin Urbina APRN, WOOD HEEL FLAP INSERTER Unavailable [phone] Reason for Visit * Reason Comments Medication Refill Encounter Details Date Type Department Care Team (Late st Contact Info) Description 10/10/2023 [facility]ill [facility] - [place] [address] [place] [address] Ok Jorge MD #[address] [address] Medication Refill Social History Tobacco [...] Ynes Zuniga, RN - 10/11/2023 9:03 AM GRASS FARMER Requested Prescriptions Pending Prescriptions Disp Refills â€¢ Insulin Pen Needle (BD Pen Needle Jackelin 2nd Gen) 32G X 4 MM Misc [Pharmacy Med Name: B-D JACKELIN 2ND GEN PEN NDL [id number]] 400 Each Sig: USE TO INJECT FOUR TIMES DAILY Next appt: 12/13/2023 S FARMER documented in this encounter Plan of Treatment Upcoming Encounters Date Type Department Care Team (Late st Contact Info) Description 02/28/2025 3:30 PM CDT [facility] #2 [place] [address] Ok Jorge MD #2 [facility] [address] [place] [address] 03/20/2025 2:30 PM CDT Office Visit [facility] - Family Medicine [facility] #2 [place] [address] Oswaldo Serrano MD #2 [facility] [address] [place] [address] 07/30/2025 2:45 PM CDT Office Visit [facility] #2 [place] [address] Orlin Urbina APRN, WOOD HEEL FLAP INSERTER #[address] [place] [address] documented as of this encounter Visit Diagnoses Not on filedocumented in this encounter Additional Health Concerns Assessment Noted Time PHQ-9 Depression Total Score: 0 08/09/20 23 2:56 PM CDT documented as of this encounter Care Teams Binder Stripper Machine Relationship Specialty Start Date End Date Oswaldo Serrano MD #[address] [address] PCP - General Family Medicine 05/19/17 Angel Crowe DPM #[address] [address] Consulting Physician Podiatry 06/16/17 Mora Fritz [place] Behavioral Health Navigator 06/15/18 Ok Jorge MD #[address] [address] Consulting Physician Endocrinology 05/12/22 Orlin Urbina APRN, WOOD HEEL FLAP INSERTER #2 [place] [address] Nurse Practitioner Advanced Practice Nurse 11/09/22 documented as of this encounter
--- OUTSIDE RECORDS SUMMARY | 2025-02-21 17:24 | XMS_ITS | Encounter Summary ---
Author Organization [facility] Address [address] [place] [address] Phone Care Team Providers Care Ride Mechanic Name Role Phone Oswaldo Serrano MD Primary Care Provider [phone] Angel Crowe DPCiara Unavailable [phone] Mora Fritz Unavailable Unavailable Ok Jorge MD Unavailable Orlin Urbina APRN, WALL SCRAPER Unavailable [phone] Reason for Visit * Reason Comments Medication Refill Encounter Details Date Type Department Care Team (Late st Contact Info) Description 05/27/2024 Refill [facility] - Family Medicine - [place] [address] [place] [address] Oswaldo Serrano MD #[address] [address] Medication Refill Social History Tobacco Use Types Packs/Day Years Used Date Smoking Tobacco: Never Smokeless Tobacco: Never Alcohol Use Standard Drinks/Week Comments No 0 (1 standard drink = 0.6 oz pur e alcohol) [facility] Utilities Answer Date Recorded In the [...] often do you attend chur ch or catholic services? Never 11/09/2023 Do you belong to any clubs o r organizations such as latter-day groups, unions, fraternal or athletic groups, or [...] Total Score - Questions 1-9 0 07/12 [facility] [place] of Occupat ional Health - Occupational Stress [...] Description 02/28/2025 3:30 PM CDT [facility] Visit [facility] - Endocrinology - [place] [address] [place] [address] Ok Jorge MD #[address] [address] 03/20/2025 2:30 PM CDT Office Visit [facility] - Family Medicine - [place] [address] [place] [address] Oswaldo Serrano MD #[address] [address] 07/30/2025 2:45 PM CDT Office Visit [facility] #2 [place] [address] Orlin Urbina APRN, WALL SCRAPER #2 [place] [address] documented as of this encounter Visit Diagnoses Not on filedocumented in this encounter Additional Health Concerns Assessment Noted Time PHQ-9 Depression Total Score: 0 08/09/20 23 2:56 PM CDT documented as of this encounter Care Teams Ride Mechanic Relationship Specialty Start Date End Date Oswaldo Serrano MD #[address] [address] PCP - General Family Medicine 05/19/17 Angel Crowe DPM #[address] [address] Consulting Physician Podiatry 06/16/17 Mora Fritz [place] Behavioral Health Navigator 06/15/18 Ok Jorge MD #[address] [address] Consulting Physician Endocrinology 05/12/22 Orlin Urbina APRN, WALL SCRAPER #2 [place] [address] Nurse Practitioner Advanced Practice Nurse 11/09/22 documented as of this encounter
--- OUTSIDE RECORDS SUMMARY | 2025-02-21 17:24 | XMS_ITS | Encounter Summary ---
Author Organization [facility] Address [address] [place] [address] Phone Care Team Providers Care Fiberglasser Name Role Phone Oswaldo Serrano MD Primary Care Provider [phone] Angel Crowe DPM Unavailable [phone] Mora Fritz Unavailable Unavailable Ok Jorge MD Unavailable Orlin Urbina APRN, FELT CEMENTER Unavailable [phone] Reason for Visit * Reason Comments Medication Refill Encounter Details Date Type Department Care Team (Late st Contact Info) Description 01/21/2022 Refill [facility] [place] [facility] #2 [place] [address] Orlin Urbina APRN, FELT CEMENTER #2 [place] [address] Medication Refill Social History Tobacco Use Types [...] of: Requested Prescriptions Pending Prescriptions Disp Refills â€¢ Myrbetriq 50 MG TABLET SR 24 HR [...] Description 02/28/2025 3:30 PM CDT Office Visit [facility] - Endocrinology - [place] [address] [place] [address] Ok Jorge MD #[address] [address] 03/20/2025 2:30 PM CDT [facility] Visit [facility] - Family Medicine - [place] #2 [place] [address] Oswaldo Serrano MD #2 [facility] [address] [place] [address] 07/30/2025 2:45 PM CDT Office Visit [facility] #2 [place] [address] Orlin Urbina APRN, FELT CEMENTER #2 [place] [address] documented as of this encounter Visit Diagnoses Diagnosis Nocturnal enuresis OAB (overactive bladder) Hypertonicity of bladder documented in this encounter Additional Health Concerns Assessment Noted Time PHQ-9 Depression Total Score: 2 07/18/20 20 4:26 PM CDT documented as of this encounter Care Teams Fiberglasser Relationship Specialty Start Date End Date Oswaldo Serrano MD #[address] [address] PCP - General Family Medicine 05/19/17 Angel Crowe DPM #2 [facility] [address] [place] [address] Consulting Physician Podiatry 06/16/17 Mora Fritz [place] Behavioral Health Navigator 06/15/18 Ok Jorge MD #2 [facility] [address] [place] [address] Consulting Physician Endocrinology 05/12/22 Orlin Urbina APRN, FELT CEMENTER #2 [place] [address] Nurse Practitioner Advanced Practice Nurse 11/09/22 documented as of this encounter
--- OUTSIDE RECORDS SUMMARY | 2025-02-21 17:24 | XMS_ITS | Clinical Summary ---
Author Organization [facility] Address [address] [place] [address] Phone Care Team Providers Care Waist Presser Name Role Phone Oswaldo Serrano MD Primary Care Provider [phone] Angel Crowe DPM Unavailable [phone] Mora Fritz Unavailable Unavailable Ok Jorge MD Unavailable Orlin Urbina APRN, NEON TUBE PUMPER Unavailable [phone] Allergies Active Allergy Reactions Criticality Noted Date Comments Sulfa Antibiotics Unknown,Hives 07/15/2016 Sulfamethoxazole-Trimethoprim Hives Medications Blood Glucose Monitoring Suppl Device Test blood glucose 4 times daily. E11.9, insulin dependent 1 Each 12/19/19 20 Active Lancets Misc Test four times daily. E11.9, insulin dependent 400 Lancet 3 12/19/19 20 Active Insulin Syringe-Needle U-100 (TRUEPLUS INSULIN SYRINGE) 31G X 5/16 0.5 ML Misc USE 4 TIMES DAILY 400 Each 3 12/19/19 20 Active Continuous Blood Gluc Transmit (Dexcom G6 Transmitter) [facility] 12/03/19 Active Cyanocobalamin (B-12) 500 MCG TabletIndications:V itamin B12 Deficiency Take 1 Tablet by mouth daily. 90 Tablet 3 11/14/19 23 Active Additional Information Patient not taking.Reported on 11/30/2024 Blood Glucose Monitoring Suppl Device Test blood glucose 1x daily, E11.9, insulin dependent 1 Each 12/31/19 23 Active Lancets [facility] 1 Lancet by Does not apply route daily. Test blood glucose 1x daily. E11.9, insulin dependent 100 Lancet 3 12/31/19 23 Active fluticasone (FLONASE) 50 MCG/ACT SuspensionIndicatio ns:Nasal Congestion 1-2 Sprays by Nasal route daily. Use in each nostril as directed. 1 g 3 02/02/20 Active Continuous Blood Gluc Cloth Dyer (Dexcom G7 Cloth Dyer) Device 1 Each by Does not apply route 4 times daily. Use to check glucose 4x daily. 1 Each 04/29/20 23 Active NovoLOG FlexPen 100 UNIT/ML Solution Pen-injectorIndicat ions:Type 2 Diabetes Mellitus INJECT 16-13-10 UNITS BEFORE EACH MEAL -- ISF OF 1:30 IF GREATER THAN 140MG/DL UP TO 70 UNITS PER DAY 75 mL 1 07/18/20 23 Active Insulin Pen Needle (BD Pen Needle Trina 2nd Gen) 32G X 4 MM [facility] USE TO INJECT FOUR TIMES DAILY 400 Each 3 10/11/19 24 Active Glucose Blood Strip Use to test blood glucose 1x daily. E11.9, insulin dependent 100 Strip 3 12/15/19 24 Active Glucose Blood (OneTouch Verio) Strip 4 times a day 400 Each 3 01/04/20 24 Active albuterol 108 (90 Base) MCG/ACT Aerosol SolutionIndications :Exacerbation of Chronic Obstructive Pulmonary Disease INHALE 1 TO 2 PUFFS BY MOUTH EVERY 4 HOURS NEEDED FOR COUGH 18 g 08/05/20 24 Active omeprazole (PriLOSEC) 20 MG CAPSULE DELAYED RELEASEIndications: Symptomatic Gastroesophageal Reflux Disease (Inactive) TAKE 1 CAPSULE BY MOUTH DAILY 90 Capsule 1 08/07/20 24 Active metoprolol Succinate (TOPROL-XL) 100 MG TABLET SR 24 HRIndications:Atria l Fibrillation,Heart Failure,Hypertensio n Take 100 mg by mouth daily. Indications: Atrial Fibrillation, Cardiac Failure, High Blood Pressure Active LORazepam (ATIVAN) 0.5 MG TabletIndications:A nxiety Take 1 Tablet by mouth every 8 hours as needed for Anxiety or Other (agitation). 30 Tablet 08/10/20 24 Active Additional Information Patient not taking.Reported on 11/30/2024 magnesium oxide (MAG-OX) 400 MG TabletIndications:H ypomagnesemia Take 1 Tablet by mouth daily. 30 Tablet 08/29/20 24 Active levothyroxine (SYNTHROID) 75 MCG TabletIndications:H ypothyroidism TAKE 1 TABLET BY MOUTH EVERY MORNING 90 Tablet 3 09/23/20 24 Active spironolactone (ALDACTONE) 25 MG TabletIndications:H ypertension,HF TAKE 1/2 TABLET BY MOUTH DAILY 45 Tablet 1 10/09/20 24 Active cefadroxil (DURICEF) 500 MG Capsule Take 1,000 mg by mouth 2 times daily. 10/29/19 25 Active ferrous sulfate 325 (65 Fe) MG TabletIndications:I ivette Deficiency Take 325 mg by mouth daily. Indications: Iron Deficiency 10/29/19 25 Active rivaroxaban (Xarelto) 20 MG TabletIndications:A trial Fibrillation Take 20 mg by mouth daily. Indications: Atrial Fibrillation 10/29/19 25 Active Jardiance 10 MG Tablet Jardiance 10 mg tablet 10/24/19 25 Active hydrOXYzine (ATARAX) 25 MG Tablet hydroxyzine HCl 25 mg tablet 10/24/19 25 Active Lidocaine 4 % Patch 1 Patch by Transdermal route. Active Entresto 24-26 MG TabletIndications:H eart Failure Take 0.5 Tablets by mouth every morning. Indications: Cardiac Failure 10/31/19 25 Active Acetaminophen-DM (Coricidin HBP Cold/Cough/Flu) 650-20 MG/30ML Liquid Take 30 mL by mouth every 4 hours as needed for Other (congestion). 11/02/19 25 Active insulin aspart (NovoLOG FlexPen) 100 UNIT/ML Solution Pen-injector 14 units before each meal; correctional factor insulin of 1:30 if >140 mg/dL, up to 60 units per day 60 mL 1 11/07/19 25 Active insulin glargine-yfgn 100 UNIT/ML Solution Pen-injector 18 Units by Subcutaneous route every morning. 15 mL 1 11/12/19 25 Active docusate sodium (COLACE) 100 MG CapsuleIndications: Constipation TAKE 1 CAPSULE BY MOUTH TWICE DAILY 60 Capsule 2 12/15/19 25 Active escitalopram (LEXAPRO) 10 MG Tablet TAKE 1 TABLET BY MOUTH DAILY 90 Tablet 1 12/21/19 25 Active furosemide (LASIX) 40 MG TabletIndications:H eart Failure,Hypertensio n Take 1 Tablet by mouth daily. Indications: Cardiac Failure, High Blood Pressure 90 Tablet 2 01/15/20 25 Active Vibegron (Gemtesa) 75 MG TabletIndications:O AB (overactive bladder) Take 75 mg by mouth daily for 30 days. 90 Tablet 3 01/29/20 25 2024 Active nortriptyline (PAMELOR) 10 MG Capsule Take 1 Capsule by mouth nightly. 90 Capsule 1 02/08/20 25 Active Continuous Glucose Sensor (Dexcom G7 Sensor) Misc 1 Each by Does not apply route every 10 days. Change sensor every 10 days. 9 Each 1 02/09/20 25 Active nortriptyline (PAMELOR) 10 MG Capsule Take 1 Capsule by mouth nightly. 90 Capsule 1 05/18/20 24 2024 Discontin ued(Reord er) Continuous Glucose Sensor (Dexcom G7 Sensor) Misc 1 Each by Does not apply route every 10 days. Change sensor every 10 days. 9 Each 1 08/29/20 24 2024 Discontin ued(Reord er) Vibegron (Gemtesa) 75 MG TabletIndications:O AB (overactive bladder) Take 75 mg by mouth daily for 30 days. 30 Tablet 01/09/20 25 2024 Discontin ued(Reord er) levoFLOXacin (LEVAQUIN) 500 MG TabletIndications:I nfection due to Enterobacter cloacae,Acute cystitis without hematuria Take 1 Tablet by mouth daily for 3 days. 3 Tablet 02/05/20 25 2024 Discontin ued(Reord er) fluconazole (DIFLUCAN) 150 MG TabletIndications:V aginal cara Take 1 Tablet by mouth once for 1 dose. 1 Tablet 02/06/20 25 2024 levoFLOXacin (LEVAQUIN) 500 MG TabletIndications:I nfection due to Enterobacter cloacae,Acute cystitis without hematuria Take 1 Tablet by mouth daily for 4 days. 4 Tablet 02/08/20 25 2024 Active Problems Problem Noted Date Diagnosed Date Dry skin 11/29/2024 Toe infection 11/29/2024 Diabetic eye exam 11/01/2024 Rash 11/01/2024 Ataxic gait 11/01/2024 Skin infection 11/01/2024 Yeast infection 02/23/2024 Bladder infection 02/23/2024 Fall [...] Encounters Date Type Department Care Team Description 02/08/2025 MyChart RX Renewal [facility] - Endocrinology [facility] [place] [address] Ok Jorge MD Medication Renewal Reviewed 02/07/2025 [facility]Chart [facility] [place] [address] Oswaldo Serrano MD Medication Renewal Reviewed 02/05/2025 Telephone [facility] #[address] [place] [address] Orlin Urbina APRN, CNP 02/04/2025 Results Follow-Up [facility] #[address] [place] [address] Orlin Urbina APRN, CNP CULTURE, URINE 01/28/2025 1:45 PM CDT Office Visit [facility] #[address] [place] [address] Orlin Urbina APRN, CNP OAB (overactive bladder) (Primary Dx); Abnormal urinalysis Discharge Disposition: Discharged to home or Selfcare 01/28/2025 Travel 01/13/2025 MyChart RX Renewal [facility] [address] [place] [address] Oswaldo Serrano MD Medication Renewal Declined 01/13/2025 MyChart RX Renewal [facility] #2 [facility] [place] [address] Connor Yuan, FIRE PREVENTION CAPTAIN, NEON TUBE PUMPER Medication Renewal Reviewed 01/08/2025 Care Management [facility] [address] [place] [address] Orlin Urbina FIRE PREVENTION CAPTAIN, NEON TUBE PUMPER 12/25/2024 MyChart RX Renewal [facility] [address] [place] [address] Orlin Urbina FIRE PREVENTION CAPTAIN, NEON TUBE PUMPER Medication Renewal Reviewed 12/20/2024 [facility]ill [facility] [place] [address] Oswaldo Serrano MD Medication Refill 12/17/2024 Telephone [facility] [address] [place] [address] Orlin Urbina FIRE PREVENTION CAPTAIN, NEON TUBE PUMPER 12/14/2024 Refill [facility] [address] [place] [address] Oswaldo Serrano MD Medication Refill 12/04/2024 Refill [facility] [address] [place] [address] Orlin Urbina FIRE PREVENTION CAPTAIN, NEON TUBE PUMPER Medication Refill 12/03/2024 Telephone [facility] [address] Orlin Urbina, FIRE PREVENTION CAPTAIN, NEON TUBE PUMPER Medication Refill 11/30/2024 3:00 PM HOOP RIVETER [facility] [place] [address] Ok Jorge MD Type 2 diabetes mellitus treated with insulin ([facility]) (Primary Dx); Class 2 severe obesity due to excess calories with serious comorbidity and body mass index (BMI) of 38.0 to 38.9 in adult (HCC); Hypoglycemia; Insulin dose changed ([facility]) 11/30/2024 Travel 11/29/2024 2:30 PM HOOP RIVETER Telemedicine [facility] [address] [place] [address] Oswaldo Serrano MD Dry skin (Primary Dx); Toe infection; Chronic systolic congestive heart failure ([facility]) 11/29/2024 Telephone [facility] [address] [place] [address] Oswaldo Serrano MD 11/29/2024 Refill [facility] [address] [place] [address] Orlin Urbina, FIRE PREVENTION CAPTAIN, NEON TUBE PUMPER Medication Refill 11/29/2024 Travel from Last 3 Months Immunizations Immunization Administration Dates Next Due Covid-19, Mrna, Lnp-s, Pf, 3 0 Mcg/0.3 Ml Dose (Pfizer) 01/18/2021,12/23/2020 Influenza Vaccine 07/02/2014 Influenza Vaccine, Quadrivalent, PF 08/10,07/18/2020,06/22/2019,08/19,07/17/2015,07/02/2014 Pneumococcal conjugate PCV20 , polysaccharide [id number] conjugate, adjuvant, PF 08/26/2022 TDAP Vaccine 06/10/2024 [...] drink = 0.6 oz pur e alcohol) [facility] Utilities Answer Date Recorded In the past [...] often do you attend chur ch or confucianism services? Never 11/29/2024 Do you belong to [...] Total Score - Questions 1-9 2 10/11 [facility] - [...] place to sleep or slept in a custodial (including now)? No 11/09/2023 Housing Stability Vital Sign Answer Charlie e Recorded In the last 12 months, was t here a time when you were not able to pay the mortgage or rent on time? No 11/29/2024 In the past 12 months, how m any times have you moved where you were living? 0 11/29/2024 At any time in the past 12 m [facility], were you homeless or living in a custodial (including now)? No 11/29/2024 Education Answer Date [...] Sign Reading Time Taken Comments Blood Pressure 114/70 01/28/2025 1:47 PM CDT Pulse 79 01/28/2025 1:47 PM CDT Temperature 36.4 C (97.6 F) 11/15/2024 3:13 PM HOOP RIVETER Respiratory Rate 18 01/28/2025 1:47 PM CDT Oxygen Saturation 100% 01/28/2025 1:47 PM CDT Inhaled Oxygen Concentration - - Weight 131.5 kg (290 lb) 01/28/2025 1:47 PM CDT Height 167.6 cm (5' 6 ) 01/28/2025 1:47 PM CDT Body Mass Index 46.81 01/28/2025 1:47 PM CDT Plan of Treatment Upcoming Encounters Date Type Department Care Team (Late st Contact Info) Description 02/28/2025 3:30 PM CDT Office Visit [facility] Medical Group - Endocrinology [facility] [address] [place] [address] Ok Jorge MD #2 [facility] [address] [place] [address] 03/20/2025 2:30 PM CDT Office Visit [facility] Medical [facility] - Family Medicine - [place] #2 [place] [address] Oswaldo Serrano MD #[address] [address] 07/30/2025 2:45 PM CDT Office Visit [facility] [address] [place] [address] Orlin Urbina, FIRE PREVENTION CAPTAIN, NEON TUBE PUMPER [address] [place] [address] Health Maintenance Due Date Last Done Comments Diabetes: Foot Exam 1961 HPV/Cotest 12/20/1991 Colonoscopy 2006 Immunochemical Fecal Occult Blood 12/20/2011 Zoster Immunization (1 of 2) 12/20/2011 Respiratory Syncytial Virus (RSV) Immunization (Adult) (1 - Risk 60-74 years 1-dose series) 2021 Diabetes: Eye Exam 02/24/2024 02/23/2023, 07/18/2018 SARS-COV-2 Immunization ( season) 2024 01/18/2021, 12/23/2020 Diabetes: Nephropathy Screening 11/09/2024 11/09/2023, 06/21/2023, 09/06/2022, Additional history exists Mammogram 12/01/2024 12/01/2023, 11/10, 10/27/2021, Additional history exists Diabetes: Hemoglobin A1c 04/20/2025 025, 07/07/2024, 01/04/2024, Additional history exists Influenza Immunization (Season Ended) 2025 08/26/2022, 07/18/2020, 06/22/2019, Additional history exists Cologuard 09/23/2025 09/23/2022 Colorectal Cancer Screening 09/23/2025 Postponed from 09/23/2025 (Lower Priority for Now) Cervical Cancer Screening (CCS) 11/09/2025 Pap Smear 11/09/2025 11/09/2022, 06/06/2017 Td Immunization Every 10 Years (Adults With 1 Tdap) 06/10/2034 06/10/2024 Pneumococcal Immunization (50+ years) Completed 08/26/2022 Pneumococcal Immunization Combined Discontinued 08/26/2022 TdaP Immunization Discontinued 06/10/2024 Hepatitis B Immunization Aged Out No longer eligible based on patient's age to complete this topic Human Papillomavirus (HPV) Immunization Aged Out No longer eligible based on patient's age to complete this topic Meningococcal Immunization (ACWY) Aged Out No longer eligible based on patient's age to complete this topic Rotavirus Immunization Aged Out No lo nger eligible based on patient's age to complete this topic Procedures Procedure Name Priority Date/Time Associated Diagnosis Comments CULTURE, URINE Routine 01/28/2025 2:35 PM CDT Abnormal urinalysis POCT UA AUTOMATED W/O MICRO Routine 01/28/2025 2:05 PM CDT OAB (overactive bladder) POCT GLYCOSYLATED HEMOGLOBIN Routine 01/04/2024 3:30 PM CDT Type 2 diabetes mellitus treated with insulin (HCC) SHABANA DIAG BILATERAL DIGITAL W CAD Routine 12/01/2023 3:15 PM HOOP RIVETER Abnormal mammogram CMP (COMPREHENSIVE METABOLIC PANEL) Routine 11/09/2023 4:54 PM HOOP RIVETER Elevated LFTs Primary hypertension HM DILATED EYE EXAM 02/23/2023 1 2:00 AM CDT PATHOLOGY CYTOLOGY MAIL DISTRIBUTION SCHEME EXAMINER Routine 11/09/2022 3:06 PM HOOP RIVETER Encounter for well woman exam with routine gynecological exam COLOGUARD Routine 09/23/2022 4:00 PM HOOP RIVETER Screening for colon cancer from Last 3 Months or Most Recently Relevant to Health Maintenance Results * CULTURE, URINE (01/28/2025 2:35 PM CDT) CULTURE RESULTS ENTEROBACTER CLOACAE COMPLEX 02/01/2025 6:03 PM CDT [facility] Comment: Enterobacter cloacae, Citrobacter freundii, and Klebsiella aerogenes are associated with a moderate to high likelihood of inducible AmpC Beta-Lactamase gene expression. Consider avoiding treatment with ceftriaxone or ceftazidime even if isolate tests susceptible to these agents. Treatment with ceftriaxone or ceftazidime can still be considered in uncomplicated cystitis. Culture URINE SPECIMEN OBTAINED BY CLEAN CATCH PROCEDURE / Unknown Non-Phlebotomy Collection / Unknown 01/28/2025 2:35 PM CDT 01/28/2025 2:35 PM CDT Narrative Organism Antibiotic Method Susceptibility Enterobacter cloacae complex Ceftriaxone CACERES MAYA 20 mm: Intermediate Enterobacter cloacae complex Cefepime [facility] VITEK IIB 0.5 mcg/ml: Susceptible Enterobacter cloacae complex Gentamicin [facility] V[facility] IIB <=1 mcg/ml: Susceptible Enterobacter cloacae complex Levofloxacin [facility] V[facility]K IIB <=0.12 mcg/ml: Susceptible Enterobacter cloacae complex Meropenem [facility] V[facility] IIB 1 mcg/ml: Susceptible Enterobacter cloacae complex Nitrofurantoin [facility] VITEK IIB 256 mcg/ml: Resistant Enterobacter cloacae complex Piperacillin/Tazobactam [facility] VITEK IIB >=128 mcg/ml: Resistant Enterobacter cloacae complex Trimeth/Sulfamethoxazole [facility] V[facility]K IIB >=320 mcg/ml: Resistant Orlin Urbina APRN, CNP MICROBIOLOGY - GENERAL ORDERABLES Final Result [facility] [address] [place] [address], [place] * (ABNORMAL) POCT UA AUTOMATED W/O MICRO (01/28/2025 2:05 PM CDT) POC UA SPECIFIC GRAVITY 1.025 URINE PH 5.0 5.0 - 9.0 POC URINE LEUKOCYTES 25 /ul(A) Negative Lucas/uL POC URINE NITRITE Positive(A) Negative POC URINE PROTEIN 30 mg/dL(A) Negative mg/dL POC URINE GLUCOSE Norm Negative, Norm mg/dL POC URINE KETONE Negative Negative mg/dL POC URINE UROBILINOGEN 4 E.U./dL (mg/dL)(A) Norm, 0.2 E.U./dL (mg/dL), 1 E.U./dL (mg/dL) POC URINE BILIRUBIN 1 mg/dL(A) Negative mg/dL POC URINE BLOOD INSTRUMENT TR(A) Negative Alec/uL POC URINE COLOR Silvia POC URINE CLARITY Cloudy 01/28/2025 2:05 PM CDT Orlin Urbina APRN, CNP POINT OF CARE TESTING (MANUAL) Final Result * (ABNORMAL) POCT GLYCOSYLATED HEMOGLOBIN (01/04/2024 3:30 PM CDT) Pathologist [facility] HGB-A1C 8.9(A) 4 - 6 % Blood 01/04/2024 3:30 PM CDT Ok Jorge MD POINT OF CARE TESTING (MANUAL) F inal Result * SHABANA DIAG BILATERAL DIGITAL W CAD (12/01/2023 3:15 PM HOOP RIVETER) Anatomical Region Laterality Modality breast Bilateral Mammography 12/01/2023 2:48 PM HOOP RIVETER Narrative 12/02/2023 1:16 PM HOOP RIVETER - SHABANA DIAG BILATERAL DIGITAL W CAD [...] dated: 11/25/2022, 09/14/2022, 01/29/2022, 10/27/2021, and 10/17/2018 [facility]. BREAST TISSUE:There are scattered fibroglandular densities [...] signed by: Arsalan Bocanegra M.D. ll/:12/01/2023 15:11:27 Motel Front Desk Clerk(s): RT Lauri(R)(M), [facility] letter sent: Normal Exam Reading location: [facility] BI-RADS: 2 Benign Procedure Note Arsalan Bocanegra [...] dated: 11/25/2022, 09/14/2022, 01/29/2022, 10/27/2021, and 10/17/2018 [facility]. BREAST TISSUE:There are scattered fibroglandular densities [...] signed by: Arsalan Bocanegra M.D. ll/:12/01/2023 15:11:27 Motel Front Desk Clerk(s): RT Lauri(R)(M), [facility] letter sent: Normal Exam Reading location: [facility] BI-RADS: 2 Benign Oswaldo Serrano MD [facility] MAMMO ORDERABLES Ayanna l Result * (ABNORMAL) CMP (COMPREHENSIVE METABOLIC PANEL) (11/09/2023 4:54 PM HOOP RIVETER) SODIUM 140 136 - 145 mmol/L [id number]|2025-02-23 01:11:46|2025-02-23 01:11:46|ADMGEN||||"This patient, Loretta Penn, was admitted to IMU Room 205-02 on02/23/25 at 0110. Patient/family oriented to hospital policies and general routines including ID bracelet, bed and alarms, visiting hours, pain management, procedures, bathroom and other care routines, personal items, smoking policy, room service/diet, and visiting hours. Information on how to activate the Rapid Response Team has been discussed. Patient/Family are encouraged to report perceived risks to care and to ask questions if they do not understand what they are told or what they should do. "
--- OUTSIDE RECORDS SUMMARY | 2025-02-21 17:24 | XMS_ITS | Encounter Summary ---
Author Organization [facility] Address [address] [place] [address] Phone Care Team Providers Care Group Home Paraprofessional Name Role Phone Oswaldo Serrano MD Primary Care Provider Angel Crowe DPM Unavailable [phone] Mora Fritz Unavailable Unavailable Ok Jorge MD Unavailable Orlin Urbina APRN, INSTRUCTOR BUS TROLLEY [employer] TAXI Unavailable [phone] Reason for Visit * Reason Comments Medication Refill Encounter Details Date Type Department Care Team (Late st Contact Info) Description 05/13/2021 Refill [facility] - [place] [address] [place] [address] Ronda Pedraza APRN, YUDI [address] [address] Medication Refill Social History Tobacco [...] Pending Prescriptions Disp Refills ergocalciferol (VITAMIN D) 33661 UNIT Capsule [Pharmacy Med Name: VITAMIN D [...] ago B12 deficiency [facility] - Oswaldo Moreno, MD 3 months ago [facility]TI symptoms [facility] [place] APN, YUDI 4 months ago Essential hypertension [facility] Oswaldo Moreno MD 4 months ago Intractable cluster headache syndrome, unspecified chronicity pattern [facility] MD Upcoming Appointments Future Appointments Tomorrow Connor Yuan APN, YUDI [facility] [place] [facility] UPMCDarlene In 1 month Ok Jorge MD [facility] HOTEL MAID - Recent and Past Visits Recent Visits Date Type Provider Dept 02/27/21 Office Visit Oswaldo Serrano MD [facility] [place] 02/16/21 Office Visit Oswaldo Serrano MD [facility] [place] 01/14/21 Office Visit Connor Yuan APN, YUDI [facility] [place] 12/19/20 Office Visit Oswaldo Serrano MD [facility] [place] 12/18/20 Telemedicine sOwaldo Serrano MD [facility] [place] 12/08/20 Telemedicine Oswaldo Serrano MD [facility] [place] 11/07/20 Telemedicine Connor Yuan APN, YUDI [facility] 10/09/20 Office Visit Oswaldo Serrano MD [facility] [place] 09/16/20 Telemedicine Oswaldo Serrano MD [facility] [place] 07/18/20 Office Visit Connor Yuan APN, YUDI [facility] [place] Showing recent visits within past 460 days with a meds authorizing provider and meeting all other requirements Future Appointments Date Type Provider Dept 05/14/21 Appointment Connor Yuan APN, UYDI [place] Showing future appointments within next 90 days with a meds authorizing provider and meeting all other requirements documented in this encounter Plan of Treatment Upcoming Encounters Date Type Department Care Team (Late st Contact Info) Description 02/28/2025 3:30 PM CDT Office Visit [facility] Medical [facility] - Endocrinology - [place] [address] [place] [address] Ok Jorge MD #2 [facility] [address] [place] [address] 03/20/2025 2:30 PM CDT Office Visit [facility] Medical Group - Family Medicine - [place] [address] [place] [address] Oswaldo Serrano MD #[address] [address] 07/30/2025 2:45 PM CDT Office Visit [facility] #2 [place] [address] Orlin Urbina, MOBILE LAB TECHNICIAN, INSTRUCTOR [employer]OLLEY [employer]AXI [address] [place] [address] documented as of this encounter Visit Diagnoses Diagnosis Vitamin D deficiency Unspecified vitamin D deficiency documented in this encounter Additional Health Concerns Infection Onset Date Last Indicated Resolved Time COVID - 19 07/28/2021 07/29/2021 08/17/2021 12:1 6 AM ENDOSCOPY RN Assessment Noted Time PHQ-9 Depression Total Score: 2 07/18/20 4:26 PM CDT documented as of this encounter Care Teams Group Home Paraprofessional Relationship Specialty Start Date End Date Oswaldo Serrano MD #[address] [address] PCP - General Family Medicine 05/19/17 Angel Crowe DPM #[address] [address] Consulting Physician Podiatry 06/16/17 Mora Fritz NE Behavioral Health Navigator 06/15/18 Ok Jorge MD #[address] [address] Consulting Physician Endocrinology 05/12/22 Orlin Urbina APRN, INSTRUCTOR [employer]OLLEY [employer]AXI [address] [place] [address] Nurse Practitioner Advanced Practice Nurse 11/09/22 documented as of this encounter
--- OUTSIDE RECORDS SUMMARY | 2025-02-21 17:24 | XMS_ITS | Encounter Summary ---
Author Organization [facility] Address [address] [place] [address] Phone Care Team Providers Care Set Up And Lay Out Inspector Name Role Phone Oswaldo Serrano MD Primary Care Provider [phone] Angel Crowe DPM Unavailable [phone] Mora Fritz Unavailable Unavailable Ok Jorge MD Unavailable Orlin Urbina APRN, DISPUTE RESOLUTION SPECIALIST Unavailable [phone] Reason for Visit * Reason Comments Medication Refill Encounter Details Date Type Department Care Team (Late st Contact Info) Description 12/09/2021 Refill [facility] [place] [facility] #2 [place] [address] Orlin Urbina APRN, DISPUTE RESOLUTION SPECIALIST #2 [place] [address] Medication Refill Social History Tobacco Use Types [...] COVID-19? No / Unsure 12/10/2021 3:06 PM [facility] documented as of this encounter Miscellaneous Notes * Telephone Encounter - Orlin Urbina APRN, CNP - 12/11/2021 12:52 PM [facility] Patient needs follow-up for continued refills [facility] * Telephone Encounter - Peggy Parson RN [...] Type Provider Dept 10/27/21 Office Visit Orlin Urbian APRN, CNP [facility]rology [facility] 10/07/21 Office Visit Oswaldo Serrano MD [facility] 07/28/21 [facility]medicine [facility]21 Office Visit Connor Yuan APRN, DISPUTE RESOLUTION SPECIALIST [facility] 02/27/21 Office Visit Oswaldo Serrano MD [facility] 02/16/21 Office Visit Oswaldo Serrano MD [facility] 01/14/21 Office Visit Connor Yuan APRN, DISPUTE RESOLUTION SPECIALIST [facility] 12/19/20 Office Visit Oswaldo Serrano MD [facility] 12/18/20 Telemedicine Oswaldo Serrano MD [facility] Showing [...] Ref Range Status 07/02/2021 60 >=60 Final [facility] documented in this encounter Plan of Treatment Upcoming Encounters Date Type Department Care Team (Late st Contact Info) Description 02/28/2025 3:30 PM CDT Office Visit [facility] Medical [facility] - Endocrinology - [place] #2 [place] [address] Ok Jorge MD #2 [facility] [address] [place] [address] 03/20/2025 2:30 PM CDT Office Visit [facility] Medical [facility] - Family Medicine - [place] #2 [place] [address] Oswaldo Serrano MD #2 [facility] [address] [place] [address] 07/30/2025 2:45 PM CDT Office Visit [facility] UROLOGY #2 [place] [address] Orlin Urbina APRN, DISPUTE RESOLUTION SPECIALIST #2 [place] [address] documented as of this encounter Visit Diagnoses Diagnosis Nocturnal enuresis OAB (overactive bladder) Hypertonicity of bladder documented in this encounter Additional Health Concerns Assessment Noted Time PHQ-9 Depression Total Score: 2 07/18/20 20 4:26 PM CDT documented as of this encounter Care Teams Set Up And Lay Out Inspector Relationship Specialty Start Date End Date Oswaldo Serrano MD #2 [facility] [address] [place] [address] PCP - General Family Medicine 05/19/17 Angel Crowe DPM #2 [facility] [address] [place] [address] Consulting Physician Podiatry 06/16/17 Mora Fritz Behavioral Health Navigator 06/15/18 Ok Jorge MD #2 [facility] [address] [place] [address] Consulting Physician Endocrinology 05/12/22 Orlin Urbina APRN, DISPUTE RESOLUTION SPECIALIST #2 [place] [address] Nurse Practitioner Advanced Practice Nurse 11/09/22 documented as of this encounter
--- OUTSIDE RECORDS SUMMARY | 2025-02-21 17:24 | XMS_ITS | Encounter Summary ---
Author Organization [facility] Address [address] [place] [address] Phone Care Team Providers Care Edge Beader Name Role Phone Oswaldo Serrano MD Primary Care Provider [phone] Angel Crowe DPCiara Unavailable [phone] Mora Fritz Unavailable Unavailable Ok Jorge MD Unavailable Orlin Urbina APRN, ORCHESTRATOR Unavailable [phone] Reason for Visit * Reason Comments Medication Refill Encounter Details Date Type Department Care Team (Late st Contact Info) Description 12/16/2021 Refill [facility] - Family Medicine - [place] [address] [place] [address] Oswaldo Serrano MD #[address] [address] Medication Refill Social History Tobacco Use Types [...] COVID-19? No / Unsure 12/10/2021 3:06 PM QUALITY CHECKER documented as of this encounter Miscellaneous Notes [...] 90 days and meeting all other requirements ITY CHECKER documented in this encounter Plan of Treatment Upcoming Encounters Date Type Department Care Team (Late st Contact Info) Description 02/28/2025 3:30 PM CDT Office Visit [facility] - Endocrinology - [place] #2 [place] [address] Ok Jorge MD #2 [facility] [address] [place] [address] 03/20/2025 2:30 PM CDT Office Visit [facility] - Family Medicine [facility] #2 [place] [address] Oswaldo Serrano MD #2 [facility] [address] [place] [address] 07/30/2025 2:45 PM CDT Office Visit [facility] #2 [place] [address] Orlin Urbina APRN, ORCHESTRATOR #2 [facility] [place] [address] documented as of this encounter Visit Diagnoses Not on filedocumented in this encounter Additional Health Concerns Assessment Noted Time PHQ-9 Depression Total Score: 2 07/18/20 20 4:26 PM CDT documented as of this encounter Care Teams Edge Beader Relationship Specialty Start Date End Date Oswaldo Serrano MD #2 [facility] [address] [place] [address] PCP - General Family Medicine 05/19/17 Angel Crowe DPM #[address] [address] Consulting Physician Podiatry 06/16/17 Mora Fritz [place] Behavioral Health Navigator 06/15/18 Ok Jorge MD #[address] [address] Consulting Physician Endocrinology 05/12/22 Orlin Urbina APRN, ORCHESTRATOR #2 [place] [address] Nurse Practitioner Advanced Practice Nurse 11/09/22 documented as of this encounter
--- OUTSIDE RECORDS SUMMARY | 2025-02-21 17:24 | XMS_ITS | Encounter Summary ---
Author Organization [facility] Address [address] [place] [address] Phone Care Team Providers Care Breast Worker Name Role Phone Oswaldo Serrano MD Primary Care Provider [phone] Angel Crowe DPCiara Unavailable [phone] Mora Fritz Unavailable Unavailable Ok Jorge MD Unavailable Orlin Urbina APRN, DIRECTOR CLINICAL INFORMATION SERVICES Unavailable [phone] Reason for Visit * Reason Comments Medication Refill Encounter Details Date Type Department Care Team (Late st Contact Info) Description 12/11/2023 Refill [facility] - Family Medicine - [place] [address] [place] [address] Oswaldo Serrano MD #[address] [address] Medication Refill Social History Tobacco Use Types Packs/Day Years Used Date Smoking Tobacco: Never Smokeless Tobacco: Never Alcohol Use Standard Drinks/Week Comments No 0 (1 standard drink = 0.6 oz pur e alcohol) [facility] Utilities Answer Date Recorded In [...] any clubs o r organizations such as uatsdin groups, unions, fraternal or athletic groups, or [...] Total Score - Questions 1-9 0 07/12 [facility] [place] of Occupat ional Health - Occupational Stress [...] with SSRI for at least 6 months DE CHANNEL ACCOUNT MANAGER documented in this encounter Plan of Treatment Upcoming Encounters Date Type Department Care Team (Late st Contact Info) Description 02/28/2025 3:30 PM CDT Office Visit [facility] Medical [facility] - Endocrinology - [place] #2 [place] [address] Ok Jorge MD #[address] [address] 03/20/2025 2:30 PM CDT Office Visit [facility] Medical [facility] - Family Medicine - [place] #2 [place] [address] Oswaldo Serrano MD #[address] [address] 07/30/2025 2:45 PM CDT Office Visit [facility] #2 [place] [address] Orlin Urbina APRN, DIRECTOR CLINICAL INFORMATION SERVICES #2 [place] [address] documented as of this encounter Visit Diagnoses Not on filedocumented in this encounter Additional Health Concerns Assessment Noted Time PHQ-9 Depression Total Score: 0 08/09/20 2:56 PM CDT documented as of this encounter Care Teams Breast Worker Relationship Specialty Start Date End Date Oswaldo Serrano MD #2 [facility] [address] [place] [address] PCP - General Family Medicine 05/19/17 Angel Crowe DPM #2 [facility] [address] [place] [address] Consulting Physician Podiatry 06/16/17 Mora Fritz [place] Behavioral Health Navigator 06/15/18 Ok Jorge MD #[address] [address] Consulting Physician Endocrinology 05/12/22 Orlin Urbina, SPOOL WINDER, DIRECTOR CLINICAL INFORMATION SERVICES #2 [place] [address] Nurse Practitioner Advanced Practice Nurse 11/09/22 documented as of this encounter
--- OUTSIDE RECORDS SUMMARY | 2025-02-21 17:24 | XMS_ITS ---
Author Organization [facility] Address [address] [place], [place] [id number] Care Team Providers Care Beading Sawyer Name Role Phone JEREMÍAS ASHTON Primary Care Provider Encounters Encounter Location Date Provider Diagnosis [facility] [address] [place], [place] [id number] 02/21/2025 JEREMÍAS ASHTON Plan Of Treatment Next Appt Details Provider Name:JEREMÍAS Mills, 08/01/2025 01:00:00 PM, [address], [place], [place], [id number], Progress Notes * Daria RODRIGUEZOB:[birth year] (64 yo F)Acc No.[id number]:02/21/2025 Patient: Loretta NAM :1960 A ge:64 Y S ex:Female Address:[address] [place], [address] * true * Date: Generated for Printi ng/Faxing/eTransmitting on: 0 02/21/2025 05:23 PM CDT
--- OUTSIDE RECORDS SUMMARY | 2025-02-21 17:24 | XMS_ITS | Encounter Summary ---
Author Organization [facility] Address [address] [place] [address] Phone Care Team Providers Care Vp & General Counsel Name Role Phone Oswaldo Serrano MD Primary Care Provider [phone] Angel Crowe DPCiara Unavailable [phone] Mora Fritz Unavailable Unavailable Ok Jorge MD Unavailable Orlin Urbina APRN, PROPERTY CONDITION ASSESSOR Unavailable [phone] Reason for Visit * Reason Comments Medication Refill Encounter Details Date Type Department Care Team (Late st Contact Info) Description 02/02/2024 Refill [facility] - Family Medicine - [place] [address] [place] [address] Oswaldo Serrano MD #[address] [address] Medication Refill Social History Tobacco Use Types Packs/Day Years Used Date Smoking Tobacco: Never Smokeless Tobacco: Never Alcohol Use Standard Drinks/Week Comments No 0 (1 standard drink = 0.6 oz pur e alcohol) [facility] Utilities Answer Date Recorded In [...] Total Score - Questions 1-9 0 07/12 [facility] [place] of Occupat ional Health - Occupational Stress [...] place to sleep or slept in a intermediate (including now)? No 11/09/2023 Education Answer Date [...] Description 02/28/2025 3:30 PM CDT Office Visit [facility] Medical Group - Endocrinology - [place] #2 [place] [address] Ok Jorge MD #[address] [address] 03/20/2025 2:30 PM CDT Office Visit [facility] Medical [facility] - Family Medicine - [place] #2 [place] [address] Osawldo Serrano MD #[address] [address] 07/30/2025 2:45 PM CDT Office Visit [facility] UROLOGY #2 [place] [address] Orlin Urbina APRN, PROPERTY CONDITION ASSESSOR #2 [place] [address] documented as of this encounter Visit Diagnoses Not on filedocumented in this encounter Additional Health Concerns Assessment Noted Time PHQ-9 Depression Total Score: 0 08/09/20 23 2:56 PM CDT documented as of this encounter Care Teams Vp & General Counsel Relationship Specialty Start Date End Date Oswaldo Serrano MD #2 [facility] [address] [place] [address] PCP - General Family Medicine 05/19/17 Angel Crowe DPM #2 [facility] [address] [place] [address] Consulting Physician Podiatry 06/16/17 Mora Fritz [place] Behavioral Health Navigator 06/15/18 Ok Jorge MD #[address] [address] Consulting Physician Endocrinology 05/12/22 Orlin Urbina, SENIOR BUSINESS MANAGER, PROPERTY CONDITION ASSESSOR #2 [place] [address] Nurse Practitioner Advanced Practice Nurse 11/09/22 documented as of this encounter
--- OUTSIDE RECORDS SUMMARY | 2025-02-21 17:24 | XMS_ITS | Encounter Summary ---
Author Organization [facility] Address [address] [place] [address] Phone Care Team Providers Care Console Operator Name Role Phone Oswaldo Serrano MD Primary Care Provider [phone] Angel Crowe DPM Unavailable [phone] Mora Fritz Unavailable Unavailable Ok Jorge MD Unavailable Orlin Urbina APRN, PLASTIC CARD GRADER CARDROOM Unavailable [phone] Reason for Visit * Reason Comments Medication Refill Encounter Details Date Type Department Care Team (Late st Contact Info) Description 01/15/2022 Refill [facility] [place] [facility] #2 [place] [address] Orlin Urbina APRN, PLASTIC CARD GRADER CARDROOM #2 [place] [address] Medication Refill Social History Tobacco Use Types [...] Hearn 10/27/21 Office Visit Orlin Urbina APRN, PLASTIC CARD GRADER CARDROOM [facility] Urology [facility] 10/07/21 Office Visit Oswaldo Serrano MD [facility] 07/28/21 Telemedicine Oswaldo Serrano MD [facility] 05/14/21 Office Visit Connor Yuan APRN, PLASTIC CARD GRADER CARDROOM [facility] 02/27/21 Office Visit Oswaldo Serrano MD [facility] 02/16/21 Office Visit Oswaldo Serrano MD [facility] Showing recent visits within past 365 days [...] Description 02/28/2025 3:30 PM CDT Office Visit [facility] - Endocrinology - [place] #2 [place] [address] Ok Jorge MD #2 [facility] [address] [place] [address] 03/20/2025 2:30 PM CDT Office Visit [facility] Medical [facility] - Family Medicine - [place] #2 [place] [address] Oswaldo Serrano MD #2 [facility] [address] [place] [address] 07/30/2025 2:45 PM CDT Office Visit [facility]ICIAN GROUP UROLOGY #2 [place] [address] Orlin Urbina APRN, PLASTIC CARD GRADER CARDROOM #2 [place] [address] documented as of this encounter Visit Diagnoses Diagnosis Nocturnal enuresis OAB (overactive bladder) Hypertonicity of bladder documented in this encounter Additional Health Concerns Assessment Noted Time PHQ-9 Depression Total Score: 2 07/18/20 20 4:26 PM CDT documented as of this encounter Care Teams Console Operator Relationship Specialty Start Date End Date Oswaldo Serrano MD #2 [facility] [address] [place] [address] PCP - General Family Medicine 05/19/17 Angel Crowe DPM #2 [facility] [address] [place] [address] Consulting Physician Podiatry 06/16/17 Mora Fritz [place] Behavioral Health Navigator 06/15/18 Ok Jorge MD #2 [facility] [address] [place] [address] Consulting Physician Endocrinology 05/12/22 Orlin Urbina, CLERICAL ASSIGNER, PLASTIC CARD GRADER CARDROOM #2 [place] [address] Nurse Practitioner Advanced Practice Nurse 11/09/22 documented as of this encounter
--- OUTSIDE RECORDS SUMMARY | 2025-02-21 17:24 | XMS_ITS | Encounter Summary ---
Author Organization [facility] Address [address] [place] [address] Phone Care Team Providers Care Hazmat Technician Name Role Phone Oswaldo Serrano MD Primary Care Provider Angel Crowe DPM Unavailable [phone] Mora Fritz Unavailable Unavailable Ok Jorge MD Unavailable Orlin Urbina APRN, SUPERVISOR DIALS Unavailable [phone] Reason for Visit * Reason Comments Medication Refill Encounter Details Date Type Department Care Team (Late st Contact Info) Description 02/18/2021 Refill [facility] - Family Medicine - [place] #2 [place] [address] Connor Yuan APRN, SUPERVISOR DIALS #[address] [address] Medication Refill Social History Tobacco Use Types [...] Pending Prescriptions Disp Refills ergocalciferol (VITAMIN D) 69644 UNIT Capsule [Pharmacy Med Name: VITAMIN D [...] - Family Medicine - Connor Hutchinson APN, SUPERVISOR DIALS 2 months ago Essential hypertension [facility] - Family Medicine - Oswaldo Moreno MD 2 months ago Intractable cluster headache syndrome, unspecified chronicity pattern [facility] - Family Medicine - Oswaldo Moreno MD 2 months ago Subacute maxillary sinusitis [facility] - Family Medicine - DhirajOswaldo Venegas MD Upcoming Appointments Future Appointments In 1 week Oswaldo Serrano MD [facility] Family Medicine [facility], [facility] In 2 weeks SAHCUSTECH2; SAHCUS2 [facility] Ultrasound, [facility] In 2 weeks Ok Jorge MD [facility] Medical [facility] - Endocrinology [facility], [facility] JANITOR HEAD - Recent and Past Visits Recent Visits Date Type Provider Dept 02/16/21 Office Visit Oswaldo Serrano MD [facility] 01/14/21 Office Visit Connor Yuan APN, SUPERVISOR DIALS [facility] 12/19/20 Office Visit Oswaldo Serrano MD [facility] 12/18/20 Telemedicine Oswaldo Serrano MD [facility] 12/08/20 Telemedicine Oswaldo Serrano MD [facility] 11/07/20 Telemedicine Connor Yuan APN, SUPERVISOR DIALS [facility] 10/09/20 Office Visit Oswaldo Serrano MD [facility] 09/16/20 Telemedicine Oswaldo Serrano MD [facility] 07/18/20 Office Visit Connor Yuan APN, SUPERVISOR DIALS [facility] 07/11/20 Telemedicine Connor Yuan APN, SUPERVISOR DIALS [facility] Showing recent visits within past [...] Description 02/28/2025 3:30 PM CDT Office Visit [facility] Medical [facility] - Endocrinology - [place] #2 [place] [address] Ok Jorge MD #[address] [address] 03/20/2025 2:30 PM CDT Office Visit [facility] - Family [facility] #2 [place] [address] Oswaldo Serrano MD #[address] [address] 07/30/2025 2:45 PM CDT Office Visit [facility] UROLOGY #2 [place] [address] Orlin Urbina APRN, SUPERVISOR DIALS #2 [place] [address] documented as of this encounter Visit Diagnoses Diagnosis Vitamin D deficiency Unspecified vitamin D deficiency documented in this encounter Additional Health Concerns Infection Onset Date Last Indicated Resolved Time COVID - 19 07/28/2021 07/29/2021 08/17/2021 12:1 6 AM CLOTH COLORER Assessment Noted Time PHQ-9 Depression Total Score: 2 07/18/20 20 4:26 PM CDT documented as of this encounter Care Teams Hazmat Technician Relationship Specialty Start Date End Date Oswaldo Serrano MD #[address] [address] PCP - General Family Medicine 05/19/17 Angel Crowe DPM #[address] [address] Consulting Physician Podiatry 06/16/17 Mora Fritz Behavioral Health Navigator 06/15/18 Ok Jorge MD #[address] [address] Consulting Physician Endocrinology 05/12/22 Orlin Urbina APRN, SUPERVISOR DIALS #2 [place] [address] Nurse Practitioner Advanced Practice Nurse 11/09/22 documented as of this encounter
--- OUTSIDE RECORDS SUMMARY | 2025-02-21 17:25 | XMS_ITS | Encounter Summary ---
Author Organization [facility] Address [address] [place] [address] Phone Care Team Providers Care Buzzsaw Operator Helper Name Role Phone Oswaldo Serrano MD Primary Care Provider [phone] Angel Crowe DPM Unavailable [phone] Mora Fritz Unavailable Unavailable Ok Jorge MD Unavailable Orlin Urbina APRN, FIRE WATCHMAN Unavailable [phone] Reason for Visit * Reason Comments Medication Refill Encounter Details Date Type Department Care Team (Late st Contact Info) Description 12/23/2022 Refill [facility] [place] [facility] #2 [place] [address] Orlin Urbina APRN, FIRE WATCHMAN #2 [place] [address] Medication Refill Social History Tobacco Use Types [...] Coronavirus/COVID-19? No / Unsure 11/25/2022 12:13 PM PROGRAM AIDE documented as of this encounter Plan of Treatment Upcoming Encounters Date Type Department Care Team (Late st Contact Info) Description 02/28/2025 3:30 PM CDT Office Visit [facility] Medical Group - Endocrinology - [place] #2 [place] [address] Ok Jorge MD #2 [facility] [address] [place] [address] 03/20/2025 2:30 PM CDT Office Visit [facility] Medical [facility] - Family Medicine - [place] #2 [place] [address] Oswaldo Serrano MD #2 [facility] [address] [place] [address] 07/30/2025 2:45 PM CDT Office Visit [facility] PHYSICIAN GROUP UROLOGY #2 [place] [address] Orlin Urbina APRN, FIRE WATCHMAN #2 [place] [address] documented as of this encounter Visit Diagnoses Not on filedocumented in this encounter Additional Health Concerns Assessment Noted Time PHQ-9 Depression Total Score: 0 10/14/19 23 11:00 AM PROGRAM AIDE documented as of this encounter Care Teams Buzzsaw Operator Helper Relationship Specialty Start Date End Date Oswaldo Serrano MD #2 [facility] [address] [place] [address] PCP - General Family Medicine 05/19/17 Angel Crowe DPM #2 [facility] [address] [place] [address] Consulting Physician Podiatry 06/16/17 Mora Fritz Behavioral Health Navigator 06/15/18 Ok Jorge MD #2 [facility] [address] [place] [address] Consulting Physician Endocrinology 05/12/22 Orlin Urbina APRN, FIRE WATCHMAN #2 [place] [address] Nurse Practitioner Advanced Practice Nurse 11/09/22 documented as of this encounter
--- OUTSIDE RECORDS SUMMARY | 2025-02-21 17:25 | XMS_ITS | Encounter Summary ---
Author Organization [facility] Address [address] [place] [address] Phone Care Team Providers Care Manager Special Events Name Role Phone Oswaldo Serrano MD Primary Care Provider [phone] Angel Crowe DPM Unavailable [phone] Mora Fritz Unavailable Unavailable Ok Jorge MD Unavailable Orlin rUbina APRN, DIRECTOR STYLE Unavailable [phone] Reason for Visit * Reason Comments Medication Refill Encounter Details Date Type Department Care Team (Late st Contact Info) Description 05/10/2022 Refill [facility] - Endocr[facility]ology - [place] #2 [place] [address] Ok Jorge MD #[address] [address] Medication Refill Social History Tobacco [...] Telephone Encounter - Ynes Zuniga RN - 05/10/2022 2:19 PM CDT Requested Prescriptions Pending Prescriptions Disp Refills â€¢ Glucose Blood (True Metrix Blood Glucose Test) Strip [Pharmacy Med Name: TRUE METRIX MALIA GLUCOSE-MEDICARE] 400 Each 2 Sig: TEST USING ONE STRIP FOUR TIMES DAILY Next appt: 06/07/2022 documented in this encounter Plan of Treatment Upcoming Encounters Date Type Department Care Team (Late st Contact Info) Description 02/28/2025 3:30 PM CDT Office Visit [facility] - Endocrinology - [place] [address]2 [place] [address] Ok Jorge MD #2 [facility] [address] [place] [address] 03/20/2025 2:30 PM CDT Office Visit [facility] - Family Medicine - [place] #2 [place] [address] Oswaldo Serrano MD #2 [facility] [address] [place] [address] 07/30/2025 2:45 PM CDT Office Visit [facility] UR[facility]Y #2 [place] [address] Orlin Urbina APRN, DIRECTOR STYLE #2 [place] [address] documented as of this encounter Visit Diagnoses Not on filedocumented in this encounter Additional Health Concerns Assessment Noted Time PHQ-9 Depression Total Score: 2 07/18/20 20 4:26 PM CDT documented as of this encounter Care Teams Manager Special Events Relationship Specialty Start Date End Date Oswaldo Serrano MD #2 [facility] [address] [place] [address] PCP - General Family Medicine 05/19/17 Angel Crowe DPM #2 [facility] [address] [place] [address] Consulting Physician Podiatry 06/16/17 Mora Fritz ND Behavioral Health Navigator 06/15/18 Ok Jorge MD #2 [facility] [address] [place] [address] Consulting Physician Endocrinology 05/12/22 Orlin Urbina APRN, DIRECTOR STYLE #2 [place] [address] Nurse Practitioner Advanced Practice Nurse 11/09/22 documented as of this encounter
--- OUTSIDE RECORDS SUMMARY | 2025-02-21 17:25 | XMS_ITS | Patient Health Record ---
Author Organization [facility] Address [address] [place], [place] [id number] Care Team Providers Care Information Systems Professor Name Role Phone DAISHAJEREMÍAS Primary Care Provider Allergies Allergen (clinical drug ingredient) Drug/Non Drug Allergy documented on EMR Reaction Allergy Type Onset Date Status Substance with sulfonamide structure and antibacterial mechanism of action (substance) Sulfa Antibiotics Unknown Drug Allergy Active Results Component Value Reference Range Notes COMPREHENSIVE METABOLIC PANE L (23235) Reviewed date:08/10/2024 03:56:35 PM Interpretation: Performing Lab:[place], [facility][id number] Niyah Sheets, TbnkbsTQ[address] Krista Montiel MD Notes/Report: FASTING: NO FASTING:NO GLUCOSE 192 65-139 mg/dL Non-fasting reference interval [...] 15 10-35 U/L ALT 10 6-29 U/L CBC (INCLUDES DIFF/PLT) (639 9) Reviewed date:08/10/2024 07:29:02 AM Interpretation: Performing Lab:[place] [place] Krista Montiel MD Notes/Report: FASTING:NO FASTING: NO [...] MPV 10.3 7.5-12.5 fL ABSOLUTE NEUTROPHILS 4795 3095-5107 cells/uL ABSOLUTE LYMPHOCYTES 8512 217-1543 cells/uL ABSOLUTE MONOCYTES 637 200-950 cells/uL ABSOLUTE EOSINOPHILS 322 15-500 cells/uL ABSOLUTE BASOPHILS 98 0-200 cells/uL NEUTROPHILS 68.5 LYMPHOCYTES 16.4 MONOCYTES 9.1 EOSINOPHILS 4.6 BASOPHILS 1.4 SED RATE BY MODIFIED NARDA WELCH (809) Reviewed date:08/10/2024 09:35:21 AM Interpretation: Performing Lab:[place] [id number] Krista Montiel MD Notes/Report: FASTING:NO FASTING: NO SED RATE BY MODIFIED BAILEY 53 < OR = 30 mm/h C-REACTIVE PROTEIN (4420) Reviewed date:08/10/2024 09:35:16 AM Interpretation: Performing Lab:[place] Krista Montiel MD Notes/Report: FASTING:NO FASTING: NO C-REACTIVE PROTEIN <3.0 <8.0 mg/L Reason For Referral No Information Medications Medication SIG (Take, Route, Frequency, Duration) Notes Start Date End Date Status NovoLOG FlexPen 100 UNIT/ML 10 units plu s sliding scale Subcutaneous three times a day 08/09/2024 Active Xarelto 20 MG 1 tablet with food O rally Once a day Active Basaglar KwikPen 100 UNIT/ML 18 units Subcutaneous daily 08/09/2024 Active Metoprolol Succinate ER 100 MG 1 tablet Orally Once a day Active Docusate Sodium 100 MG 1 capsule as need ed Orally twice a day 08/09/2024 Active Levothyroxine Sodium 75 MCG 1 tablet in the morning on an empty stomach Orally Once a day Active Gemtesa 75 MG 1 tablet Orally Once a day 08/09/2024 Active Ferrous Sulfate 325 (65 Fe) MG 1 tablet Orally Three times a Week Active Albuterol Sulfate HFA 108 (90 Base) MCG/ACT 2 puffs as needed Inhalation every 4 hrs Active Escitalopram Oxalate 10 MG 1 tablet Oral ly Once a day Active Furosemide 40 MG 1 tablet Orally twic e a day Active Vitamin D 125 MCG (5000 UT) 1 capsule Or ally Once a day 08/09/2024 Active Magnesium Oxide 400 MG 2 tablets Orally Once a day 08/09/2024 Active Omeprazole 20 MG 1 capsule 1/2 to 1 h our before morning meal Orally Once a day Active Social History PRAPARE Question Answer Notes Date Completed/Updated: 01/30/2025 What is your current housing situation? I have h ousing Are you worried about losing your housing? No What is the highest level of school that you have finished? I choose not to answer this question What is your current work situation? I choose no t to answer this question In the past year, have you o r any family members you live with been unable to get any of the following when it was really needed? Check all that apply Food Has lack of transportation k ept you from medical appointments, meetings, work or from getting things needed for daily living? No How often do you see or talk to people that you care about and feel close to? (For example: talking to friends on the phone, visiting friends or family, going to yazidi or club meetings) I choose not to answer this question How stressed are you? Stress is when someone feels tense, nervous, anxious, or can't sleep at night because their mind is troubled I choose not to answer this question In the past year have you sp ent more than 2 nights in a row in a chcf, longterm, penitentiary center, or juvenile correctional facility? I choose not to answer this question Are you a refugee? No What country are you from? [place] Do you feel physically and e motionally safe where you currently live? Yes In the past year, have you b een afraid of your partner or ex-partner? No PRAPARE Score: 1 Section Notes: She lives alone but receives help with all of her ADLs by her sisters. She denies tobacco, alcohol, or illicit drug use. She lives alone but receives help with all of her ADLs by her sisters. She denies tobacco, alcohol, or illicit drug use. She lives alone but receives help with all of her ADLs by her sisters. She denies tobacco, alcohol, or illicit drug use. Problems Problem Type SNOMED Code ICD Code Onset Dates Problem Status W/U Status Risk Notes Problem Inappropriate diet and eating habits (1369465439882) Inappropriate diet and eating habits (Z72.4) 01/31/20 Active confirmed Problem Obese class III (finding) (257286544) Obesity, class 3 (E66.813) 01/31/20 Active confirmed Problem [id number] Chronic systolic congestive heart failure (I50.22) Active confirmed Vital Signs Heart Rate 94 /min 01/30/2025 Temperature 98.0 degrees Fahrenheit 01/30/2025 Respiratory Rate 20 /min 01/30/2025 Height-cm 165.1 cm 01/30/2025 Oximetry 94 % 01/30/2025 Blood pressure diastolic 77 mm Hg 01/30/2025 Weight-kg 130.18 kg 01/30/2025 Height 65 in 01/30/2025 Blood pressure systolic 109 mm Hg 01/30/2025 Weight 287.0 lbs 01/30/2025 BMI 47.75 kg/m2 01/30/2025 Encounters Encounter Location Date Provider Diagnosis [facility] [address] [facility] [place], [place] [id number] 08/09/2024 JEREMÍAS ASHTON Acute bacterial endocarditis I33.0 ; Bacteremia R78.81 ; Methicillin susceptible Staphylococcus aureus infection as the cause of diseases classified elsewhere B95.61 and 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, initial encounter T82.7XXA [address] [id number] 09/17/2024 [facility] Acute bacterial endocarditis I33.0 and 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, initial encounter T82.7XXA [address] [id number] 01/30/2025 [facility] Acute bacterial endocarditis I33.0 ; 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, initial encounter T82.7XXA ; Chronic systolic congestive heart failure I50.22 ; Obesity, class 3 E66.813 and Inappropriate diet and eating habits Z72.[address] [id number] 09/18/[address] [id number] 12/17/[address] [id number] 02/21/2025 [facility] Assessments Encounter Date Diagnosis (ICD Code) Assessment [...] above. She will follow up with the industrial laborer. 01/30/2025 Acute bacterial endocarditis (ICD-10 - I33.0) A long discussion is had with the patient and her sister about the importance of restarting the antibiotics at the correct dosing and she is given refills. This will be lifelong therapy as she is no longer a candidate for PPM change or valvular surgery. She will follow up with the industrial laborer as she has severe CHF, valvular dysfunction, and is volume overloaded. Given her inability to comply with medications, a CPAP, weight loss, low sodium diet, and is no longer a surgical candidate, she is encouraged to talk with the industrial laborer about the possiblity for hospice care. In the interim, she will continue the antibiotics, call/go to the hospital with fever or worsening of symptoms, and return in 6 months as getting her to appointments is difficult for the sister. 01/30/2025 Infection of implantable cardioverter-defib rillator (ICD) generator, initial encounter (ICD-10 - T82.7XXA) As above. 01/30/2025 Chronic systolic congestive heart failure (ICD-10 - I50.22) As above. 08/09/2024 Methicillin susceptible Staphylococcus aureus infection as the cause of diseases classified elsewhere (ICD-10 - B95.61) As above. 01/30/2025 Obesity, class 3 (ICD-10 - E66.813) 08/09/2024 Infection of implantable cardioverter-defib rillator (ICD) generator, initial encounter (ICD-10 - T82.7XXA) As above. 01/30/2025 Inappropriate diet and eating habits (ICD-10 - Z72.4) Plan Of Treatment Next Appt Details Provider Name:JEREMÍAS Mills, 08/01/2025 01:00:00 PM, [address], [facility] [address], [place], [place], [id number], Insurance Providers Payer Name Payer Address Payer Phone Subscriber Number Group Number Insured Name Patient Relationship to Insured Coverage Start Date Coverage End Date [employer] [address] [place] [address] [id number] Loretta Moses am Self - patient is the insured [address] [place], [place] [address]t of Public Aid [address] [address] [place], [place] [id number] Loretta Moses am Self - patient is the insured Medical (General) History Medical History History ICD Code GERD Obesity Diabetes Mellitus Type 2 Hypertension CHF Atrial fibrillation Ventricular tachycardia/fibrillation Intellectual disability Chronic constipation Hypothyroidism JOSE poorly compliant with CPAP OAB with frequent UTIs Depression TV/AICD vegetation from [facility] Moderate MR Severe TR Surgical History Surgery Date(Month/Year) Cholecystectomy AICD placement then removal
--- OUTSIDE RECORDS SUMMARY | 2025-02-21 17:25 | XMS_ITS | Encounter Summary ---
Author Organization [facility] Address [address] [place] [address] Phone Care Team Providers Care Ophthalmic Aide Name Role Phone Oswaldo Serrano MD Primary Care Provider [phone] Angel Crowe DPM Unavailable [phone] Mora Fritz Unavailable Unavailable Ok Jorge MD Unavailable Orlin Urbina APRN, MARINE DIESEL MECHANIC Unavailable [phone] Reason for Visit * Reason Comments Medication Refill Encounter Details Date Type Department Care Team (Late st Contact Info) Description 08/20/2020 Refill [facility] - Family Medicine - [place] #2 [place] [address] Connor Yuan APRN, MARINE DIESEL MECHANIC #[address] [address] Medication Refill Social History Tobacco Use Types [...] COVID-19? No / Unsure 08/11/2020 2:55 PM BELL CLERK documented as of this encounter Miscellaneous Notes * Telephone Encounter - Cnonie Gamez RN - 08/20/2020 4:35 PM CST Request for this Med has been requested four times today. CLERK documented in this encounter Plan of Treatment Upcoming Encounters Date Type Department Care Team (Late st Contact Info) Description 02/28/2025 3:30 PM CDT Office Visit [facility] - Endocrinology - [place] #2 [place] [address] Ok Jorge MD #2 [facility] [address] [place] [address] 03/20/2025 2:30 PM CDT Office Visit [facility] - Family Medicine - [place] #2 [place] [address] Oswaldo Serrano MD #2 [facility] [address] [place] [address] 07/30/2025 2:45 PM CDT Office Visit [facility] UR[facility]Y #2 [place] [address] Orlin Urbina APRN, MARINE DIESEL MECHANIC #2 [place] [address] documented as of this encounter Visit Diagnoses Diagnosis Vitamin D deficiency Unspecified vitamin D deficiency documented in this encounter Additional Health Concerns Infection Onset Date Last Indicated Resolved Time COVID - 19 10/09/2020 10/09/2020 10/11/2020 5:17 AM BELL CLERK COVID - 19 11/12/2020 11/12/2020 11/16/2020 9:49 AM BELL CLERK COVID - 19 07/28/2021 07/29/2021 08/17/2021 12:1 6 AM BELL CLERK Assessment Noted Time PHQ-9 Depression Total Score: 2 07/18/20 4:26 PM CDT documented as of this encounter Care Teams Ophthalmic Aide Relationship Specialty Start Date End Date Oswaldo Serrano MD #2 [facility] [address] [place] [address] PCP - General Family Medicine 05/19/17 Angel Crowe DPM #2 [facility] [address] [place] [address] Consulting Physician Podiatry 06/16/17 Mora Fritz OR Behavioral Health Navigator 06/15/18 Ok Jorge MD #2 [facility] [address] [place] [address] Consulting Physician Endocrinology 05/12/22 Orlin Urbina APRN, MARINE DIESEL MECHANIC #2 [place] [address] Nurse Practitioner Advanced Practice Nurse 11/09/22 documented as of this encounter
--- OUTSIDE RECORDS SUMMARY | 2025-02-21 17:25 | XMS_ITS | Encounter Summary ---
Author Organization [facility] Address [address] [place] [address] Phone Care Team Providers Care Intermediate School Teacher Name Role Phone Oswaldo Serrano MD Primary Care Provider Angel Crowe DPM Unavailable [phone] Mora Fritz Unavailable Unavailable Ok Jorge MD Unavailable Orlin Urbina APRN, FACTORY MAINTENANCE TECHNICIAN Unavailable [phone] Reason for Visit * Reason Comments Medication Refill Encounter Details Date Type Department Care Team (Late st Contact Info) Description 01/26/2022 Refill [facility] #[address] [place] [address] Oswaldo Serrano MD [address] [address] Medication Refill Social History Tobacco Use Types [...] [place] 10/27/21 Office Visit Orlin Urbina APRN, FACTORY MAINTENANCE TECHNICIAN [facility] Urology [place] 10/07/21 Office Visit Oswaldo Serrano MD [facility] 07/28/21 Telemedicine Oswaldo Serrano MD [facility] 05/14/21 Office Visit Connor Yuan APRN, FACTORY MAINTENANCE TECHNICIAN [facility] 02/27/21 Office Visit Oswaldo Serrano MD [facility] 02/16/21 Office Visit Oswaldo Serrano MD [facility] Showing recent visits within past 365 days [...] Description 02/28/2025 3:30 PM CDT Office Visit [facility] Medical [facility] - Endocrinology - [place] #2 [place] [address] Ok Jorge MD #2 [facility] [address] [place] [address] 03/20/2025 2:30 PM CDT Office Visit [facility] - Family Medicine - [place] #2 [place] [address] Oswaldo Serrano MD #2 [facility] [address] [place] [address] 07/30/2025 2:45 PM CDT Office Visit [facility] UR[facility]Y #2 [place] [address] Orlin Urbina APRN, FACTORY MAINTENANCE TECHNICIAN #2 [place] [address] documented as of this encounter Visit Diagnoses Diagnosis Nocturnal enuresis OAB (overactive bladder) Hypertonicity of bladder documented in this encounter Additional Health Concerns Assessment Noted Time PHQ-9 Depression Total Score: 2 07/18/20 20 4:26 PM CDT documented as of this encounter Care Teams Intermediate School Teacher Relationship Specialty Start Date End Date Oswaldo Serrano MD #2 [facility] [address] [place] [address] PCP - General Family Medicine 05/19/17 Angel Crowe DPM #2 [facility] [address] [place] [address] Consulting Physician Podiatry 06/16/17 Mora Fritz Behavioral Health Navigator 06/15/18 Ok Jorge MD #2 [facility] [address] [place] [address] Consulting Physician Endocrinology 05/12/22 Orlin Urbina APRN, FACTORY MAINTENANCE TECHNICIAN #2 [place] [address] Nurse Practitioner Advanced Practice Nurse 11/09/22 documented as of this encounter
--- OUTSIDE RECORDS SUMMARY | 2025-02-21 17:25 | XMS_ITS | Encounter Summary ---
Author Organization [facility] Address [address] [place] [address] Phone Care Team Providers Care Embryology Teacher Name Role Phone Oswaldo Serrano MD Primary Care Provider [phone] Angel Crowe DPCiara Unavailable [phone] Mora Fritz Unavailable Unavailable Ok Jorge MD Unavailable Orlin Urbina APRN, ELECTRIC MELT OPERATOR Unavailable [phone] Reason for Visit * Reason Comments Medication Refill Encounter Details Date Type Department Care Team (Late st Contact Info) Description 10/29/2020 Refill [facility] - Family Medicine - [place] #[address] [place] [address] Oswaldo Serrano MD #[address] [address] Medication Refill Social History Tobacco Use Types [...] COVID-19? No / Unsure 10/29/2020 2:[address] WORKER documented as of this encounter Miscellaneous [...] Outpatient Visits 2 weeks ago Flu-like symptoms [facility] - Oswaldo Moreno MD 1 month ago Chronic joint pain [facility] - Oswaldo Moreno MD 3 months ago Diabetic polyneuropathy associated with type 2 diabetes mellitus (HCC) [facility] - Connor Hutchinson APN, YUDI 3 months ago Acute diarrhea [facility] - Connor Hutchinson APN, YUDI 4 months ago Tick bite, initial encounter [facility] - Oswaldo Moreno MD Upcoming Appointments Future Appointments Today Carson Michel MD [facility], [facility] In 1 week Ok Jorge MD [facility] Medical [facility] - Endocrinology - [place], [facility] In 1 month Oswaldo Serrano MD [facility] Medical [facility] - Family Medicine [facility], [facility] DIRECTOR OF REGULATORY AFFAIRS - Recent and Past Visits Recent Visits Date Type Provider Dept 10/09/20 Office Visit Oswaldo Serrano MD [facility] 09/16/20 Telemedicine Oswaldo Serrano MD [facility] 07/18/20 Office Visit Connor Yuan APN, ELECTRIC MELT OPERATOR [facility] 07/11/20 Telemedicine Connor Yuan APN, ELECTRIC MELT OPERATOR [facility] 06/09/20 Office Visit Oswaldo Serrano MD [facility] [place] 05/29/20 Telemedicine Oswaldo Serrano MD [facility] 04/07/20 Office Visit Connor Yuan APN, ELECTRIC MELT OPERATOR [facility] 03/18/20 Telemedicine Oswaldo Serrano MD [facility] 12/14/19 Office Visit Merry Elliott, [facility] [place] 08/28/19 Office Visit Oswaldo Serrano MD [facility] Showing recent visits within past 460 days with a meds authorizing provider and meeting all other requirements Future Appointments Date Type Provider Dept 12/08/20 Appointment Oswaldo Serrano MD [facility] Showing future appointments within next 90 days with a meds authorizing provider and meeting all other requirements WORKER documented in this encounter Plan of Treatment Upcoming Encounters Date Type Department Care Team (Late st Contact Info) Description 02/28/2025 3:30 PM CDT Office Visit [facility] - Endocrinology - [place] #2 [place] [address] Ok Jorge MD [address] [address] 03/20/2025 2:30 PM CDT Office Visit [facility] - Family Medicine - [place] #2 [place] [address] Oswaldo Serrano MD #[address] [address] 07/30/2025 2:45 PM CDT Office Visit [facility] #2 [place] [address] Orlin Urbina APRN, ELECTRIC MELT OPERATOR #2 [place] [address] documented as of this encounter Visit Diagnoses Not on filedocumented in this encounter Additional Health Concerns Infection Onset Date Last Indicated Resolved Time COVID - 19 11/12/2020 11/12/2020 11/16/2020 9:[address]ER COVID - 19 07/28/2021 07/29/2021 08/17/2021 12:[address] WORK[address] Assessment Noted Time PHQ-9 Depression Total Score: 2 07/18/20 20 4:26 PM CDT documented as of this encounter Care Teams Embryology Teacher Relationship Specialty Start Date End Date Oswaldo Serrano MD #[address] [address] PCP - General Family Medicine 05/19/17 Angel Crowe DPM #[address] [address] Consulting Physician Podiatry 06/16/17 Mora Fritz Behavioral Health Navigator 06/15/18 Ok Jorge MD #[address] [address] Consulting Physician Endocrinology 05/12/22 Orlin Urbina, RELATIONSHIP ASSOCIATE, ELECTRIC MELT OPERATOR #2 [place] [address] Nurse Practitioner Advanced Practice Nurse 11/09/22 documented as of this encounter
--- OUTSIDE RECORDS SUMMARY | 2025-02-21 17:25 | XMS_ITS | Encounter Summary ---
Author Organization [facility] Address [address] [place] [address] Phone Care Team Providers Care Valve Liner Rubber Name Role Phone Oswaldo Serrano MD Primary Care Provider [phone] Angel Crowe DPM Unavailable [phone] Mora Fritz Unavailable Unavailable Ok Jorge MD Unavailable Orlin Urbina APRN, AUTO DESIGN CHECKER Unavailable [phone] Reason for Visit * Reason Comments Medication Refill Encounter Details Date Type Department Care Team (Late st Contact Info) Description 11/27/2022 Refill [facility] [place] [facility] [address] [place] [address] Orlin Urbina APRN, AUTO DESIGN CHECKER [address] [place] [address] Medication Refill Social History Tobacco Use Types [...] Coronavirus/COVID-19? No / Unsure 11/25/2022 12:13 PM ROUTE CONTRACTOR documented as of this encounter Plan of Treatment Upcoming Encounters Date Type Department Care Team (Late st Contact Info) Description 02/28/2025 3:30 PM CDT Office Visit [facility] - Endocrinology - [place] [address] [place] [phone] Ok Jorge MD [address] [facility] [address] [place] [phone] 03/20/2025 2:30 PM CDT Office Visit [facility] - Family Medicine - [place] [address] [place] [phone] Oswaldo Serrano MD #2 [facility] [address] [place] [address] 07/30/2025 2:45 PM CDT Office Visit [facility] [address] [place] [address] Orlin Urbina APRN, AUTO DESIGN CHECKER [address] [place] [address] documented as of this encounter Visit Diagnoses Not on filedocumented in this encounter Additional Health Concerns Assessment Noted Time PHQ-9 Depression Total Score: 0 10/14/19 23 11:00 AM ROUTE CONTRACTOR documented as of this encounter Care Teams Valve Liner Rubber Relationship Specialty Start Date End Date Oswaldo Serrano MD #[address] [facility] [address] [place] [address] PCP - General Family Medicine 05/19/17 Angel Crowe DPM #[address] [facility] [address] [place] [address] Consulting Physician Podiatry 06/16/17 Mora Fritz Behavioral Health Navigator 06/15/18 Ok Jorge MD #[address] [facility] [address] [place] [address] Consulting Physician Endocrinology 05/12/22 Orlin Urbina APRN, AUTO DESIGN CHECKER [address] [place] [address] Nurse Practitioner Advanced Practice Nurse 11/09/22 documented as of this encounter
--- OUTSIDE RECORDS SUMMARY | 2025-02-21 17:25 | XMS_ITS | Data Portability ---
Author Organization [facility] AMELIAIsael [facility]Harbine [facility] Address [address] [place] [address] Assessment No assessment recorded. Plan of Treatment Reminders Order Date Submit Date Provider Last Modified By Organization Details Last Modified Time Details Appointments None recorded. Lab urinalysis , dipstick 2016 017 YONATAN In-Office Order, Internal Use Only DO Not Attach Compendium DO Not Attach Compendium, Do Not Delete/merge, [id number] 7 14:42:16 culture, urine 2016 017 YONATAN [facility], [address] [facility], [address], [place], [address], 7 07:14:00 hepatitis C genotype, serum or plasma 2016 017 YONATAN [facility], [address] [facility], [address], [place], [address], 7 14:35:36 urinalysis , dipstick 2016 017 [email or web address] In-Office Order, Internal Use Only DO Not Attach Compendium DO Not Attach Compendium, Do Not Delete/merge, [id number] 7 09:29:34 culture, urine 2016 017 YONATAN [facility], [address] [facility], [address], [place], [address], 7 11:15:05 culture, urine 2016 017 YONATAN [facility], [address] [facility], [address], [place], [address], 7 06:40:25 urinalysis , dipstick 2016 017 [email or web address] 6 In-Office Order, Internal Use Only DO Not Attach Compendium DO Not Attach Compendium, Do Not Delete/merge, [id number] 7 21:11:40 culture, urine 2015 016 DBA_PATCH_ [id number] [facility], [address] [facility], [address], [place], [address], 6 04:33:21 Referral endocrinol ogy referral - Please eval and treat ...... 2016 [email or web address] Not available 7 12:53:[address] referral - Please eval and treat . thank you 2016 017 [email or web address] Not available 7 17:42:07 Procedures None recorded. Surgeries None recorded. Imaging None recorded. Medication Orders Januvia 100 mg tablet 2016 017 INTERFACE [facility] #03570, [address], [place], [place], [id number], 7 14:39:09 Humulin 70/30 U-100 Insulin 100 unit/mL subcutaneo us suspension 2016 017 INTERFACE [facility] #63513, [address], [place], [place], [id number], 7 14:42:06 citalopram 40 mg tablet 2016 017 INTERFACE [facility] #79677, [address], [place], [place], [id number], 7 14:45:14 ciprofloxa mimi 500 mg tablet 2016 017 [facility]FACE [facility], [address], [place], [place], [id number], 7 14:43:40 lisinopril 10 mg tablet 2016 017 [facility]FACE [facility], [address], [place], [place], [id number], 7 14:46:07 Humulin 70/30 U-100 Insulin 100 unit/mL subcutaneo us suspension 2016 017 [facility]FACE [facility], [address], [id number], 7 14:44:54 ranitidine 150 mg tablet 2016 017 [facility], [address], [id number], 7 14:43:00 Dulera 200 mcg-5 mcg/actuat ion HFA aerosol inhaler 2016 017 INTERFACE [facility], [address], [place], [place], [id number], 7 16:46:56 nitrofuran toin monohydrat e/macrocry stals 100 mg capsule 2016 017 [email or web address] [facility] #07798, [address], [place], [place], [id number], 7 16:46:03 baclofen 10 mg tablet 2016 017 [email or web address] [facility] #42284, [address], [place], [place], [id number], 7 16:46:03 ciprofloxa mimi 500 mg tablet 2015 016 DBA_PATCH_ [id number] Not available 6 04:33:19 phenazopyr idine 200 mg tablet 2015 016 DBA_PATCH_ [id number] Not available 6 04:33:19 baclofen 10 mg tablet 2015 016 DBA_PATCH_ [id number] Not available 6 04:33:35 miconazole nitrate 2 % topical cream 2015 016 [email or web address] Not available 6 16:56:52 griseofulv in ultramicro size 250 mg tablet 2015 016 [email or web address] Not available 6 16:56:52 ciprofloxa mimi 500 mg tablet 2015 016 [email or web address] Not available 6 16:56:52 fluconazol e 150 mg tablet 2015 016 [email or web address] Not available 6 16:56:52 phenazopyr idine 200 mg tablet 2015 016 INTERFACE Not available 6 16:56:55 tramadol 50 mg tablet 2015 016 [email or web address] Not available 6 16:56:52 sertraline 100 mg tablet 2015 016 [email or web address] Not available 6 16:56:52 Patient TargetsNo targets recorded. 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 thank you Referring Physician: Jey Klein, [facility] Medicine, Encounter Date: 04/04/2017 Endocrinology Referral for D iabetes mellitus uncontrolled diabetes Please eval and treat ...... Referring Physician: Jey Klein, Family Medicine, Encounter Date: 04/04/2017 Results Created Date Observation Date Name Description Value Unit Range Abnormal Flag Note LastModifiedBy Organization Detail LastModifiedTime 04/04/20 17 04/04/2017 urina lysis , dipst ick Leukocytes Negati ve Not Available In-Office Order Internal Use Only DO Not Attach Compendium DO Not Attach Compendium, Do Not Delete/merge, 04/04/2017 14:32:33 04/04/20 17 04/04/2017 urina lysis , dipst ick Nitrite negati ve Not Available In-Office Order Internal Use Only DO Not Attach Compendium DO Not Attach Compendium, Do Not Delete/merge, 04/04/2017 14:32:33 04/04/20 17 04/04/2017 urina lysis , dipst ick Urobilinogen 1 Not Available In-Of fice Order Internal Use Only DO Not Attach Compendium DO Not Attach Compendium, Do Not Delete/merge, 04/04/2017 14:32:33 04/04/20 17 04/04/2017 urina lysis , dipst ick Protein Negati ve Not Available In-Office Order Internal Use Only DO Not Attach Compendium DO Not Attach Compendium, Do Not Delete/merge, 04/04/2017 14:32:33 04/04/20 17 04/04/2017 urina lysis , dipst ick pH 6.0 Not Available In-Office Order Internal Use Only DO Not Attach Compendium DO Not Attach Compendium, Do Not Delete/merge, 04/04/2017 14:32:33 04/04/20 17 04/04/2017 urina lysis , dipst ick Blood Non-He molyze d: Trace Not Available In-Office Order Internal Use Only DO Not Attach Compendium DO Not Attach Compendium, Do Not Delete/merge, 04/04/2017 14:32:33 04/04/20 17 04/04/2017 urina lysis , dipst ick Specific [place] 1.005 Not Available In-Off ice Order Internal Use Only DO Not Attach Compendium DO Not Attach Compendium, Do Not Delete/merge, 04/04/2017 14:32:33 04/04/20 17 04/04/2017 urina lysis , dipst ick Ketone Negati ve Not Available In-Office Order Internal Use Only DO Not Attach Compendium DO Not Attach Compendium, Do Not Delete/merge, 04/04/2017 14:32:33 04/04/20 17 04/04/2017 urina lysis , dipst ick Bilirubin Negati ve Not Available In-Office Order Internal Use Only DO Not Attach Compendium DO Not Attach Compendium, Do Not Delete/merge, 04/04/2017 14:32:33 04/04/20 17 04/04/2017 urina lysis , dipst ick Glucose 1000 Not Available In-Office Order Internal Use Only DO Not Attach Compendium DO Not Attach Compendium, Do Not Delete/merge, 04/04/2017 14:32:33 04/04/20 17 04/04/2017 urina lysis , dipst ick Appearance Clear Not Available In-Offi ce Order Internal Use Only DO Not Attach Compendium DO Not Attach Compendium, Do Not Delete/merge, 04/04/2017 14:32:33 04/04/20 17 04/04/2017 urina lysis , dipst ick Color Yellow Not Available In-Office Order Internal Use Only DO Not Attach Compendium DO Not Attach Compendium, Do Not Delete/merge, 04/04/2017 14:32:33 02/02/20 17 02/01/2017 urina lysis , dipst ick Leukocytes Negati ve Not Available In-Office Order Internal Use Only DO Not Attach Compendium DO Not Attach Compendium, Do Not Delete/merge, 02/01/2017 14:35:30 02/02/20 17 02/01/2017 urina lysis , dipst ick Nitrite positi ve Not Available In-Office Order Internal Use Only DO Not Attach Compendium DO Not Attach Compendium, Do Not Delete/merge, 02/01/2017 14:35:30 02/02/20 17 02/01/2017 urina lysis , dipst ick Urobilinogen 2 Not Available In-Of fice Order Internal Use Only DO Not Attach Compendium DO Not Attach Compendium, Do Not Delete/merge, 02/01/2017 14:35:30 02/02/20 17 02/01/2017 urina lysis , dipst ick Protein 100 Not Available In-Office Order Internal Use Only DO Not Attach Compendium DO Not Attach Compendium, Do Not Delete/merge, 02/01/2017 14:35:30 02/02/20 17 02/01/2017 urina lysis , dipst ick pH 5.0 Not Available In-Office Order Internal Use Only DO Not Attach Compendium DO Not Attach Compendium, Do Not Delete/merge, 02/01/2017 14:35:30 02/02/20 17 02/01/2017 urina lysis , dipst ick Blood Large Not Available In-Office Order Internal Use Only DO Not Attach Compendium DO Not Attach Compendium, Do Not Delete/merge, 02/01/2017 14:35:30 02/02/20 17 02/01/2017 urina lysis , dipst ick Specific [place] 1.030 Not Available In-Off ice Order Internal Use Only DO Not Attach Compendium DO Not Attach Compendium, Do Not Delete/merge, 02/01/2017 14:35:30 02/02/20 17 02/01/2017 urina lysis , dipst ick Ketone Negati ve Not Available In-Office Order Internal Use Only DO Not Attach Compendium DO Not Attach Compendium, Do Not Delete/merge, 02/01/2017 14:35:30 02/02/20 17 02/01/2017 urina lysis , dipst ick Bilirubin Small Not Available In-Offic e Order Internal Use Only DO Not Attach Compendium DO Not Attach Compendium, Do Not Delete/merge, 02/01/2017 14:35:30 02/02/20 17 02/01/2017 urina lysis , dipst ick Glucose 1000 Not Available In-Office Order Internal Use Only DO Not Attach Compendium DO Not Attach Compendium, Do Not Delete/merge, 02/01/2017 14:35:30 02/02/20 17 02/01/2017 urina lysis , dipst ick Appearance Cloudy Not Available In-Offi ce Order Internal Use Only DO Not Attach Compendium DO Not Attach Compendium, Do Not Delete/merge, [id number] 02/01/2017 14:35:30 02/02/20 17 02/01/2017 urina lysis , dipst ick Color Dark Yellow Not Available In-Office Order Internal Use Only DO Not Attach Compendium DO Not Attach Compendium, Do Not Delete/merge, [id number] 02/01/2017 14:35:30 11/25/19 17 11/25/2016 urina lysis , dipst ick Leukocytes Small Not Available In-Offi ce Order Internal Use Only DO Not Attach Compendium DO Not Attach Compendium, Do Not Delete/merge, 11/25/2016 16:31:59 11/25/19 17 11/25/2016 urina lysis , dipst ick Nitrite positi ve Not Available In-Office Order Internal Use Only DO Not Attach Compendium DO Not Attach Compendium, Do Not Delete/merge, 11/25/2016 16:31:59 11/25/19 17 11/25/2016 urina lysis , dipst ick Urobilinogen .2 Not Available In-Of fice Order Internal Use Only DO Not Attach Compendium DO Not Attach Compendium, Do Not Delete/merge, 11/25/2016 16:31:59 11/25/19 17 11/25/2016 urina lysis , dipst ick Protein 30 Not Available In-Office Order Internal Use Only DO Not Attach Compendium DO Not Attach Compendium, Do Not Delete/merge, 11/25/2016 16:31:59 11/25/19 17 11/25/2016 urina lysis , dipst ick pH 5.0 Not Available In-Office Order Internal Use Only DO Not Attach Compendium DO Not Attach Compendium, Do Not Delete/merge, 11/25/2016 16:31:59 11/25/19 17 11/25/2016 urina lysis , dipst ick Blood Small Not Available In-Office Order Internal Use Only DO Not Attach Compendium DO Not Attach Compendium, Do Not Delete/merge, 11/25/2016 16:31:59 11/25/19 17 11/25/2016 urina lysis , dipst ick Specific [place] 1.030 Not Available In-Off ice Order Internal Use Only DO Not Attach Compendium DO Not Attach Compendium, Do Not Delete/merge, 11/25/2016 16:31:59 11/25/19 17 11/25/2016 urina lysis , dipst ick Ketone Trace Not Available In-Office Order Internal Use Only DO Not Attach Compendium DO Not Attach Compendium, Do Not Delete/merge, 11/25/2016 16:31:59 11/25/19 17 11/25/2016 urina lysis , dipst ick Bilirubin Small Not Available In-Offic e Order Internal Use Only DO Not Attach Compendium DO Not Attach Compendium, Do Not Delete/merge, 11/25/2016 16:31:59 11/25/19 17 11/25/2016 urina lysis , dipst ick Glucose 500 Not Available In-Office Order Internal Use Only DO Not Attach Compendium DO Not Attach Compendium, Do Not Delete/merge, 11/25/2016 16:31:59 11/25/19 17 11/25/2016 urina lysis , dipst ick Appearance Slight ly Cloudy Not Available In-Office Order Internal Use Only DO Not Attach Compendium DO Not Attach Compendium, Do Not Delete/merge, 11/25/2016 16:31:59 11/25/19 17 11/25/2016 urina lysis , dipst ick Color Dark Yellow Not Available In-Office Order Internal Use Only DO Not Attach Compendium DO Not Attach Compendium, Do Not Delete/merge, 11/25/2016 16:31:59 09/21/20 16 09/23/2016 cultu re, urine urine culture,comp rehensive FINAL REPORT Not Available [facility] ([facility]) [address] [facility], [place], [address], 09/23/2016 07:13:56 09/21/20 16 09/23/2016 cultu re, urine result 1 COMMEN T MIXED UROGE NITAL JOSHUA 50,00 0-100 ,000 COLON Y FORMI NG UNITS PER ML Not Available [facility] ([facility]) [address] [facility], [place], [address], 09/23/2016 07:13:56 11/25/19 17 11/28/2016 cultu re, urine urine culture,comp rehensive FINAL REPORT abnormal Not Available [facility] ([facility]) [address] [place], [address], 11/28/2016 06:40:25 11/25/19 17 11/28/2016 cultu re, urine result 1 ESCHER ICHIA COLI abnormal GREAT ER THAN 100,0 00 COLON Y FORMI NG UNITS PER ML Not Available [facility] ([facility]) [address] [place], [address], 11/28/2016 06:40:25 11/25/19 17 11/28/2016 cultu re, [...] THOPR IM/GALLEGOS LFA S Not Available [facility] ([facility]) [address] [facility], [place], [address], 11/28/2016 06:40:25 02/02/20 17 02/04/2017 cultu re, urine urine culture,comp rehensive FINAL REPORT abnormal Not Available [facility] ([facility]) [address] [place], [address], 02/04/2017 11:15:05 02/02/20 17 02/04/2017 cultu re, urine result 1 ESCHER ICHIA COLI abnormal GREAT ER THAN 100,0 00 COLON Y FORMI NG UNITS PER ML Not Available [facility] ([facility]) [address] [place], [address], 02/04/2017 11:15:05 02/02/20 17 02/04/2017 cultu re, [...] THOPR IM/GALLEGOS LFA S Not Available [facility] ([facility]) [address] [facility], [place], [address], 02/04/2017 11:15:05 04/04/20 17 04/06/2017 cultu re, urine urine culture,comp rehensive FINAL REPORT Not Available [facility] ([facility]) [address] [place], [address], 04/06/2017 07:13:59 04/04/20 17 04/06/2017 cultu re, urine result 1 COMMEN T MIXED UROGE NITAL JOSHUA 10,00 0-25, 000 COLON Y FORMI NG UNITS PER ML Not Available [facility] ([facility]) [address] [place], [address], 04/06/2017 07:13:59 05/14/20 16 04/28/2016 imagi ng/di agnos tic resul t No observ ation record ed. [email or web address] [facility] [place] [address] [place], [address], 05/24/2016 10:44:17 05/14/20 16 04/13/2016 sleep study , ASV titra tion* No observ ation record ed. [email or web address] [place] [address] [address] [place], [address], 06/03/2016 16:40:00 07/12/20 16 07/12/2016 US, doppl er echoc ardio gram No observ ation record ed. [facility] [address], [place], [address], 07/19/2016 11:26:25 07/15/20 16 05/19/2016 sleep study , polys omnog jacob with bren nuous posit satnam airwa y press ure* No observ ation record ed. [facility] [address] [place], [address], 07/19/2016 11:26:02 07/28/20 16 07/28/2016 US, duple x, carot id arter y No observ ation record ed. [email or web address] Not Available 08/20 09:44:06 10/28/19 17 10/18/2016 elect rafy deshpandegr am No observ ation record ed. [facility] Not Available 2016 10:22:59 12/14/19 17 12/13/2016 XR, chest No observ ation record ed. [facility] (Imaging) [address] [place], [address], 12/14/2016 11:23:51 01/19/20 17 01/18/2017 XR, chest No observ ation record ed. [facility] (Imaging) [address] [place], [address], 02/10/2017 10:11:06 01/19/20 17 01/18/2017 CT, chest , w/o contr ast No observ ation record ed. [facility] (Imaging) [address] [place], [address], 02/10/2017 10:10:53 02/05/20 17 02/03/2017 XR, chest No observ ation record ed. [facility] (Imaging) [address] [facility], [place], [address], 02/10/2017 10:10:13 02/05/20 17 02/03/2017 CT, chest , w/o contr ast No observ ation record ed. [facility] (Imaging) [address] [facility], [place], [address], 02/10/2017 10:08:49 02/11/20 17 02/06/2017 XR, chest , 2 view No observ ation record ed. [email or web address] Not Available 05/10 11:27:49 02/11/20 17 02/06/2017 XR, abdom en, 1 view No observ ation record ed. [email or web address] Not Available 05/10 11:27:50 03/21/20 17 03/16/2017 XR, chest No observ ation record ed. [email or web address] Not Available 05/10 11:27:50 03/21/20 17 03/16/2017 CT, abdom en + pelvi s, w/ contr ast No observ ation record ed. [email or web address] Not Available 05/10 11:27:50 Result Notes None recorded. Problems Name Problem SNOMED Code Status Onset Date Resolution Date Notes Provider Name and Address Organization Details Recorded Time Constipation 02543420 Active 2016 Jey Klein PA-C Attn: Marnie mata,[address] [facility], [place], [address], [facility] 7 00:09:16 Vitamin D deficiency 24244907 Active 2016 Jey Klien PA-C Attn: Marnie mata,[address] [facility], [place], [address], [facility] 7 10:06:40 Diabetes mellitus 02525543 Active Jey Klein PA-C Attn: Accountin g,[address] [facility], [place], [place], [address] [place] [address] 2, [place] [facility] 6 14:46:47 Gastroesophage al reflux disease 871075858 Active Jey Klein PA-C Attn: Accountin g,[address] [facility], [place], [place], [address] [place] [address] 2, [place] [facility] 6 14:46:47 Sinusitis 01171535 Active Jey Klein PA-C Attn: Accountin g,[address] [facility], [place], [address] [place] [address] 2, [place] [facility] 6 14:46:47 Bladder muscle dysfunction - overactive Active Jye Klein PA-C Attn: Accountin g,[address] [facility], [place], [address] [place] [address] 2, [place] [facility] 6 14:46:47 Cardiomyopathy 17955654 Active Jey Klein PA-C Attn: Accountin g,[address] [facility], [place], [address] [place] [address] 2, [place] [facility] 6 14:46:47 Vaginitis and vulvovaginitis Active Jey Klein PA-C Attn: Accountin g,[address] [facility], [place], [address] [place] [address] 2, [place] [facility] 5 10:32:49 Dysuria 75958652 Active Jey Klein PA-C Attn: Accountin g,[address] [facility], [place], [address] [place] [address] 2, [place] [facility] 5 10:32:49 Depressive disorder 49608909 Active Jey Klein PA-C Attn: Accountin g,[address] [facility], [place], [address] [place] [address] 2, [place] [facility] 6 11:17:12 Insomnia 119671764 Active Jey Klein PA-C Attn: Accountin g,[address] [facility], [place], [address] [place] [address] 2, [place] [facility] 6 14:28:00 Knee pain Active Jey Klein PA-C Attn: Accountin g,[address] [facility], [place], [address], [place] [facility] 6 14:46:47 Dysphagia 10463203 Active Jey Klein PA-C Attn: Accountin g,[address] [facility], [place], [address], [place] [facility] 6 14:28:00 Acute urinary tract infection 380425456 Active Jey Klein PA-C Attn: Accountin g,[address] [facility], [place], [address], [place] [facility] 6 16:56:51 Asthma 285178462 Active Jey Klein PA-C Attn: Accountin g,[address] [facility], [place], [address], [place] [facility] 6 14:46:47 Low back pain 180357392 Active Jey Klein PA-C Attn: Accountin g,[address] [facility], [place], [address], [place] [facility] 6 16:56:51 Osteoarthritis of knee 578234637 Active Jey Klein PA-C Attn: Accountin g,[address] [facility], [place], [address], [place] [facility] 6 14:28:00 Thumb joint painful on movement 887723354 Active Jey Klein PA-C Attn: Accountin g,[address] [facility], [place], [address], [place] [facility] 6 14:28:00 Sleep apnea 88510140 Active Jey Klein PA-C Attn: Accountin g,[address] [facility], [place], [address], [place] [facility] 6 19:05:51 Periodic limb movement disorder 446075211 Active Jey Klein PA-C Attn: Accountin g,[address] [facility], [place], [address], [place] [facility] 6 19:05:51 Tinea capitis 1169890 Active Jey Klein PA-C Attn: Marnie mata,[address] [facility], [place], [address], [place] [facility] 6 16:56:51 Essential hypertension 15308045 Active 2016 Jey Klein PA-C Attn: Marnie mata,[address] [facility], [place], [address], [place] [facility] 7 14:45:32 Viral hepatitis C 73554685 Active 2016 Jey Klein PA-C Attn: Marnie mata,[address] [facility], [place], [address], [place] [facility] 7 14:32:24 Urinary tract infectious disease 13609720 Active 2016 Jey Klein PA-C Attn: Marnie mata,[address] [facility], [place], [address], [place] [facility] 7 14:35:04 Problem Notes None recorded. Procedures Surgical History Date Name Laterality Status Provider Name and Address Organization Details Recorded Time 07/12/20 13 Date of Last Pap Smear completed Veena Duran MA [facility] 06/30/2015 10:21:35 10/10/19 12 Cholecystectomy completed Veena Duran MA [facility] 06/30/2015 10:22:34 10/10/18 75 Appendectomy completed Veena Duran [place] [facility] 06/30/2015 10:22:14 Arthroscopic Surgery completed Sendy Ge [place] [facility] 01/15/2015 10:55:55 Imaging Results Imaging Date Name Status LastModified by Organization Details LastModified Time 04/28/2016 imaging/diagnostic result completed [email or web address] [facility] [address] [place], [address], 05/24/2016 10:44:17 04/13/2016 sleep study, ASV titration* completed [email or web address] [facility] [address] [place], [address], 06/03/2016 16:40:00 07/12/2016 US, doppler echocardiogram completed [facility] [address] [facility] [address], [place], [address], 07/19/2016 11:26:25 05/19/2016 sleep study, polysomnogram with continuous positive airway pressure* completed [facility] [address] [place], [address], 07/19/2016 11:26:02 07/28/2016 US, duplex, carotid artery completed [email or web address] Information not available 08/20/2016 09:44:06 10/18/2016 electrocardiogram completed [facility] Informa tion not available 12/02/2016 10:22:59 12/13/2016 XR, chest completed [facility] (Imaging) [address] [place], [address], 12/14/2016 11:23:51 01/18/2017 XR, chest completed [facility] ([facility]) [address] [place], [address], 02/10/2017 10:11:06 01/18/2017 CT, chest, w/o contrast completed [facility] ([facility]) [address] [place], [address], 02/10/2017 10:10:53 02/03/2017 XR, chest completed [facility] ([facility]) [address] [place], [address], 02/10/2017 10:10:13 02/03/2017 CT, chest, w/o contrast completed [facility] ([facility]) [address] [place], [address], 02/10/2017 10:08:49 02/06/2017 XR, chest, 2 view [email or web address] Inform ation not available 05/22/2017 11:27:49 02/06/2017 XR, abdomen, 1 view completed [email or web address] Info rmation not available 05/22/2017 11:27:50 03/16/2017 XR, chest completed [email or web address] Information n ot available 05/22/2017 11:27:50 03/16/2017 CT, abdomen + pelvis, w/ contrast completed [email or web address] Information not available 05/22/2017 11:27:50 Procedure Notes None recorded. Medical Equipment None Reported. Allergies Allergen ID Allergen Name Allergen Category Reaction Reaction Severity Criticality Documentation Date Start Date Code Code System Note Provider Name and Address Organization Details Recorded Time 52205 Substance with sulfonami de structure and antibacte rial mechanism of action (substanc e) medicatio n hives Not available Not available 01/15/2015 89086 8003 SNOMED SHAWN Nicolas, [facility] 5 10:55:55 39985 sulfameth oxazole / trimethop rim medicatio n hives Not available Not available 01/15/2015 53253 RxNorm SHAWN [place] - [facility] 5 10:55:55 Medications Name Sig Start Date Stop Date Status Note LastModified by Organization Details LastModified Time Prescription - New active short n/s 30g 0.5ml uf Not Available Not Available Not Available multivitamin tablet active Not Available Not Available Not Available cyclobenzapr ine 10 mg tablet active Not Available Not Available Not Available amoxicillin 500 mg capsule active Not Available Not [id number]|2025-02-22 18:55:50|2025-02-22 18:55:50|PC.NURSE||||"Called pharmacy again for missing midodrine."
--- OUTSIDE RECORDS SUMMARY | 2025-02-21 17:25 | XMS_ITS | Encounter Summary ---
Author Organization [facility] Address [address] [place] [address] Phone Care Team Providers Care Ladies Attendant Name Role Phone Oswaldo Serrano MD Primary Care Provider [phone] Angel Crowe DPCiara Unavailable [phone] Mora Fritz Unavailable Unavailable Ok Jorge MD Unavailable Orlin Urbina APRN, GATE WATCH Unavailable [phone] Reason for Visit * Reason Comments Medication Refill Encounter Details Date Type Department Care Team (Late st Contact Info) Description 07/15/2023 Refill [facility] - Family Medicine - [place] [address] [place] [address] Oswaldo Serrano MD #[address] [address] Medication Refill Social History Tobacco Use Types [...] [place] 08/26/22 Office Visit Connor Yuan APRN, GATE WATCH [facility] [place] Showing recent visits within past 365 [...] Description 02/28/2025 3:30 PM CDT Office Visit [facility] - Endocrinology - [place] #2 [facility] [place] [address] Ok Jorge MD #2 [facility] [address] [place] [address] 03/20/2025 2:30 PM CDT Office Visit [facility] Medical [facility] - Family Medicine - [place] #2 [place] [address] Oswaldo Serrano MD #2 [facility] [address] [place] [address] 07/30/2025 2:45 PM CDT Office Visit [facility] [place] [facility] #2 [facility] [place] [address] Orlin Urbina APRN, GATE WATCH #2 [place] [address] documented as of this encounter Visit Diagnoses Diagnosis Chronic congestive heart failure, unspecified heart failure type (HCC) documented in this encounter Additional Health Concerns Assessment Noted Time PHQ-9 Depression Total Score: 0 10/14/19 23 11:00 AM HOME 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
--- OUTSIDE RECORDS SUMMARY | 2025-02-21 17:25 | XMS_ITS | Encounter Summary ---
Author Organization [facility] Address [address] [place] [address] Phone Care Team Providers Care Hand Trucker Name Role Phone Oswaldo Serrano MD Primary Care Provider [phone] Angel Crowe DPCiara Unavailable [phone] Mora Fritz Unavailable Unavailable Ok Jorge MD Unavailable Orlin Urbina APRN, ASSET AVAILABILITY LEADER Unavailable [phone] Reason for Visit * Reason Comments Medication Refill Encounter Details Date Type Department Care Team (Late st Contact Info) Description 02/17/2022 Refill [facility] - Family Medicine - [place] [address] [place] [address] Oswaldo Serrano MD #[address] [address] Medication Refill Social History Tobacco Use Types [...] Description 02/28/2025 3:30 PM CDT Office Visit [facility] - Endocrinology - [place] #2 [place] [address] Ok Jorge MD #2 [facility] [address] [place] [address] 03/20/2025 2:30 PM CDT Office Visit [facility] Family Medicine - [place] #2 [facility] [place] [address] Oswaldo Serrano MD #2 [facility] [address] [place] [address] 07/30/2025 2:45 PM CDT Office Visit [facility] UROLOGY #2 [facility] [place] [address] Orlin Urbina, FRACTIONATION PLANT SUPERVISOR, ASSET AVAILABILITY LEADER #2 [place] [address] documented as of this encounter Visit Diagnoses Not on filedocumented in this encounter Additional Health Concerns Assessment Noted Time PHQ-9 Depression Total Score: 2 07/18/20 20 4:26 PM CDT documented as of this encounter Care Teams Hand Trucker Relationship Specialty Start Date End Date Oswaldo Serrano MD #2 [facility] [address] [place] [address] PCP - General Family Medicine 05/19/17 Angel Crowe DPM #[address] [place] [address] Consulting Physician Podiatry 06/16/17 Mora Fritz [place] Behavioral Health Navigator 06/15/18 Ok Jorge MD #[address] [address] Consulting Physician Endocrinology 05/12/22 Orlin Urbina, FRACTIONATION PLANT SUPERVISOR, ASSET AVAILABILITY LEADER #2 [place] [address] Nurse Practitioner Advanced Practice Nurse 11/09/22 documented as of this encounter
--- OUTSIDE RECORDS SUMMARY | 2025-02-21 17:25 | XMS_ITS | Encounter Summary ---
Author Organization [facility] Address [address] [place] [address] Phone Care Team Providers Care Front Facer Name Role Phone Oswaldo Serrano MD Primary Care Provider Angel Crowe DPCiara Unavailable [phone] Mora Fritz Unavailable Unavailable Ok Jorge MD Unavailable Orlin Urbina APRN, CONTRACTS SPECIALIST Unavailable [phone] Reason for Visit * Reason Comments Medication Refill Encounter Details Date Type Department Care Team (Late st Contact Info) Description 01/21/2021 Refill [facility] - Family Medicine - [place] [address] [place] [address] Oswaldo Serrano MD #[address] [address] Medication Refill Social History Tobacco Use Types [...] 1 week ago UTI symptoms [facility] Family Medicine - Connor Hutchinson APN, CONTRACTS SPECIALIST 1 month ago Essential hypertension [facility] Family [facility] - Oswaldo Moreno MD 1 month ago Intractable cluster headache syndrome, unspecified chronicity pattern [facility] Family [facility] - Oswaldo Moreno MD 1 month ago Subacute maxillary sinusitis [facility] Family [facility] - Oswaldo Moreno MD 2 months ago [facility] - Connor Hutchinson APN, CONTRACTS SPECIALIST Upcoming Appointments Future Appointments In [address], [facility] In 1 week Oswaldo Serrano MD [facility] Family [facility] - [facility] In 3 weeks Ok Jorge MD [facility] - Endocrinology [facility], [facility] SAP INTEGRATION ARCHITECT - Recent and Past Visits Recent Visits Date Type Provider Dept 01/14/21 Office Visit Connor Yuan APN, CONTRACTS SPECIALIST [facility] 12/19/20 Office Visit Oswaldo Serrano MD [facility] 12/18/20 Telemedicine Oswaldo Serrano MD [facility] 12/08/20 Telemedicine Oswaldo Serrano MD [facility] 11/07/20 Telemedicine Connor Yuan APN, CONTRACTS SPECIALIST [facility] 10/09/20 Office Visit Oswaldo Serrano MD [facility] 09/16/20 Telemedicine Oswaldo Serrano MD [facility] 07/18/20 Office Visit Connor Yuan APN, CONTRACTS SPECIALIST [facility] 07/11/20 Telemedicine Connor Yuan APN, CONTRACTS SPECIALIST [facility] 06/09/20 Office Visit Oswaldo Serrano [...] [Pharmacy Med Name: DOK 100 MG CAP MEHCE] 60 Capsule 2 Sig: TAKE ONE CAPSULE BY MOUTH TWICE DAILY Not Delegated - Over the Counter: OTC Failed - 01/21/2021 12:27 PM Failed - This refill cannot be delegated Passed - Valid encounter within last 12 months Past Office Visits Recent Outpatient Visits 1 week ago [facility], CONTRACTS SPECIALIST 1 month ago Essential hypertension [facility] - DhirajOswaldo Venegas MD 1 month ago Intractable cluster headache syndrome, unspecified chronicity pattern [facility], Oswaldo A, MD 1 month ago Subacute maxillary sinusitis [facility] - Family Medicine - Oswaldo Moreno MD 2 months ago Chest congestion [facility] Medical [facility] Family Medicine - Connor Hutchinson APN, CONTRACTS SPECIALIST Upcoming Appointments Future Appointments In [address], [facility] In 1 week Oswaldo Serrano MD [facility] 3 weeks Ok Jorge MD [facility] Medical [facility] - [facility] SAP INTEGRATION ARCHITECT - Recent and Past Visits Recent Visits Date Type Provider Dept 01/14/21 Office Visit Connor Yuan APN, YUDI [facility] 12/19/20 Office Visit Oswaldo Serrano MD [facility] 12/18/20 Telemedicine Oswaldo Serrano MD [facility] 12/08/20 Telemedicine Oswaldo Serrano MD [facility] 11/07/20 Telemedicine Connor Yuan APN, YUDI [facility] 10/09/20 Office Visit Oswaldo Serrano MD [facility] 09/16/20 Telemedicine Oswaldo Serrano MD [facility] 07/18/20 Office Visit Connor Yuan APN, YUDI [facility] 07/11/20 Telemedicine Connor Yuan APN, YUDI [facility] [...] CDT Office Visit [facility] Medical [facility] - Endocrinology - [place] #[address] [place] [address] Ok Jorge MD #[address] [facility] [address] [place] [address] 03/20/2025 2:30 PM CDT Office Visit [facility] Medical [facility] - Family Medicine [facility] #2 [facility] [address] Oswaldo Serrano MD #[address] [place] [address] 07/30/2025 2:45 PM CDT Office Visit [facility] UR[facility]Y #2 [place] [address] Orlin Urbina, FLARE MAN, CONTRACTS SPECIALIST #2 [facility] [place] [address] documented as of this encounter Visit Diagnoses Not on filedocumented in this encounter Additional Health Concerns Infection Onset Date Last Indicated Resolved Time COVID - 19 07/28/2021 07/29/2021 08/17/2021 12:1 6 AM PRINTER REPAIR TECHNICIAN Assessment Noted Time PHQ-9 Depression Total Score: 2 07/18/20 20 4:26 PM CDT documented as of this encounter Care Teams Front Facer Relationship Specialty Start Date End Date Oswaldo Serrano MD #[address] [place] [address] PCP - General Family Medicine 05/19/17 Angel Crowe DPM #[address] [place] [address] Consulting Physician Podiatry 06/16/17 Mora Fritz [place] Behavioral Health Navigator 06/15/18 Ok Jorge MD #[address] [address] Consulting Physician Endocrinology 05/12/22 Orlin Urbina APRN, CONTRACTS SPECIALIST #2 [place] [address] Nurse Practitioner Advanced Practice Nurse 11/09/22 documented as of this encounter
--- OUTSIDE RECORDS SUMMARY | 2025-02-21 17:25 | XMS_ITS | Encounter Summary ---
Author Organization [facility] Address [address] [place] [address] Phone Care Team Providers Care Sewer Name Role Phone Oswaldo Serrano MD Primary Care Provider Angel Crowe DPM Unavailable [phone] Mora Fritz Unavailable Unavailable Ok Jorge MD Unavailable Orlin Urbina APRN, BATHING SUIT MAKER Unavailable [phone] Reason for Visit * Reason Comments Medication Refill Encounter Details Date Type Department Care Team (Late st Contact Info) Description 09/17/2020 Refill [facility] - Family Medicine - [place] #2 [place] [address] Oswaldo Serrano MD #[address] [address] Medication Refill Social History Tobacco Use Types [...] COVID-19? No / Unsure 09/11/2020 1:18 PM GUTTER HANGER documented as of this encounter Miscellaneous Notes [...] type 2 diabetes mellitus (HCC) [facility] - Family Medicine - Connor Hutchinson APN, CNP 2 months ago Acute diarrhea [facility] Family Medicine - Connor Hutchinson APN, CNP 3 months ago Tick bite, initial encounter [facility] Family [facility] - Oswaldo Moreno MD 3 months ago Diarrhea, unspecified type [facility] Family Medicine - Oswaldo Moreno MD Upcoming Appointments Future Appointments In 1 month Ok Jorge MD [facility] Medical Group - Endocrinology - [place] [facility] CUSTOMER SERVICER - Recent and Past Visits Recent Visits Date Type Provider Dept 09/16/20 Telemedicine Oswaldo Serrano MD [facility] [place] 07/18/20 Office Visit Connor Yuan APN, YUDI [facility] [place] 07/11/20 Telemedicine Connor Yuan APN, YUDI [facility] [place] 06/09/20 Office Visit Oswaldo Serrano, [facility] 05/29/20 Telemedicine Oswaldo Serrano, [facility] [place] 04/07/20 Office Visit Connor Yuan APN, BATHING SUIT MAKER [facility] 03/18/20 Telemedicine Oswaldo Serrano, [facility] 12/14/19 Office Visit Earl Merry Hendrickson, AIDEN [facility] [place] 08/28/19 Office Visit Oswaldo Serrano, [facility] [place] 06/22/19 Office Visit Connor Yuan APN, BATHING SUIT MAKER [facility] [place] Showing recent visits within past 460 days with a meds authorizing provider and meeting all other requirements Future Appointments No visits were found meeting these conditions. Showing future appointments within next 90 days with a meds authorizing provider and meeting all other requirements ER HANGER documented in this encounter Plan of Treatment Upcoming Encounters Date Type Department Care Team (Late st Contact Info) Description 02/28/2025 3:30 PM CDT Office Visit [facility] Medical Group - Endocrinology - [place] #2 [place] [address] Ok Jorge MD #[address] [place] [address] 03/20/2025 2:30 PM CDT Office Visit [facility] Medical [facility] - Family Medicine - [place] #2 [facility] [place] [address] Oswaldo Serrano MD #[address] [place] [address] 07/30/2025 2:45 PM CDT Office Visit [facility] #[address] [place] [address] Orlin Urbina, CORDAGE SALES 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, BATHING SUIT MAKER #2 [place] [address] documented as of this encounter Visit Diagnoses Not on filedocumented in this encounter Additional Health Concerns Infection Onset Date Last Indicated Resolved Time COVID - 19 10/09/2020 10/09/2020 10/11/2020 5:17 AM GUTTER HANGER COVID - 19 11/12/2020 11/12/2020 11/16/2020 9:49 AM GUTTER HANGER COVID - 19 07/28/2021 07/29/2021 08/17/2021 12:1 6 AM GUTTER HANGER Assessment Noted Time PHQ-9 Depression Total Score: 2 07/18/20 20 4:26 PM CDT documented as of this encounter Care Teams Sewer Relationship Specialty Start Date End Date Oswaldo Serrano MD #2 [facility] [address] [place] [address] PCP - General Family Medicine 05/19/17 Angel Crowe DPM #2 [facility] [address] [place] [address] Consulting Physician Podiatry 06/16/17 Mora Frizt Behavioral Health Navigator 06/15/18 Ok Jorge MD #2 [facility] [address] [place] [address] Consulting Physician Endocrinology 05/12/22 Orlin Urbina CORDAGE SALES 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, BATHING SUIT MAKER #2 [place] [address] Nurse Practitioner Advanced Practice Nurse 11/09/22 documented as of this encounter
--- OUTSIDE RECORDS SUMMARY | 2025-02-21 17:25 | XMS_ITS | Encounter Summary ---
Author Organization [facility] Address [address] [place] [address] Phone Care Team Providers Care Customer Experience Professional Name Role Phone Oswaldo Serrano MD Primary Care Provider [phone] Angel Crowe DPCiara Unavailable [phone] Mora Fritz Unavailable Unavailable Ok Jorge MD Unavailable Orlin Urbina APRN, WAFER FAB TECHNICIAN Unavailable [phone] Reason for Visit * Reason Comments Medication Refill Encounter Details Date Type Department Care Team (Late st Contact Info) Description 06/09/2023 Refill [facility] - Family Medicine - [place] #[address] [place] [address] Oswaldo Serrano MD #[address] [address] Medication Refill Social History Tobacco Use Types [...] Care Team (Ronan reed Contact Info) Description 02/28/2025 3:30 PM CDT Office Visit [facility] - Endocrinology - [place] #2 [place] [address] Ok Jorge MD #[address] [address] 03/20/2025 2:30 PM CDT Office Visit [facility] Medical [facility] - Family Medicine - [place] #2 [place] [address] Oswaldo Serrano MD #[address] [address] 07/30/2025 2:45 PM CDT Office Visit [facility] PHYSICIAN [facility] UROLOGY #2 [place] [address] Orlin Urbina, SAFETY ADVISOR, WAFER FAB TECHNICIAN #2 [place] [address] documented as of this encounter Visit Diagnoses Not on filedocumented in this encounter Additional Health Concerns Assessment Noted Time PHQ-9 Depression Total Score: 0 10/14/19 23 11:00 AM PIT LABORER documented as of this encounter Care Teams Customer Experience Professional Relationship Specialty Start Date End Date Oswaldo Serrano MD #[address] [address] PCP - General Family Medicine 05/19/17 Angel Crowe DPM #[address] [address] Consulting Physician Podiatry 06/16/17 Mora Fritz [place] Behavioral Health Navigator 06/15/18 Ok Jorge MD [facility] [address] [address] Consulting Physician Endocrinology 05/12/22 Orlin Urbina APRN, YUDI #2 [place] [address] Nurse Practitioner Advanced Practice Nurse 11/09/22 documented as of this encounter
--- OUTSIDE RECORDS SUMMARY | 2025-02-21 17:25 | XMS_ITS | Encounter Summary ---
Author Organization [facility] Address [address] [place] [address] Phone Care Team Providers Care Manager Culinary Name Role Phone Oswaldo Serrano MD Primary Care Provider Angel Crowe DPM Unavailable [phone] Mora Fritz Unavailable Unavailable Ok Jorge MD Unavailable Orlin Urbina APRN, REFERENCE LIBRARY ASSISTANT Unavailable [phone] Reason for Visit * Reason Comments Medication Refill Encounter Details Date Type Department Care Team (Late st Contact Info) Description 12/02/2020 Refill [facility] - Family Medicine - [place] #2 [place] [address] Connor Yuan APRN, REFERENCE LIBRARY ASSISTANT #[address] [address] Medication Refill Social History Tobacco Use Types [...] COVID-19? No / Unsure 11/28/2020 2:56 PM SENIOR CARE SPECIALIST documented as of this encounter Miscellaneous Notes * Telephone Encounter - Connie Gamez RN - 12/02/2020 11:24 AM CST Refused as patient needs lab work done. Connie RN OR CARE SPECIALIST documented in this encounter Plan of Treatment Upcoming Encounters Date Type Department Care Team (Late st Contact Info) Description 02/28/2025 3:30 PM CDT Office Visit [facility] Group - Endocrinology - [place] #2 [place] [address] Ok Jorge MD #2 [facility] [address] [place] [address] 03/20/2025 2:30 PM CDT Office Visit [facility] - Family Medicine - [place] #2 [place] [address] Oswaldo Serrano MD #2 [facility] [address] [place] [address] 07/30/2025 2:45 PM CDT Office Visit [facility] UROLOGY #2 [place] [address] Orlin Urbina APRN, REFERENCE LIBRARY ASSISTANT #2 [place] [address] documented as of this encounter Visit Diagnoses Diagnosis Vitamin D deficiency Unspecified vitamin D deficiency documented in this encounter Additional Health Concerns Infection Onset Date Last Indicated Resolved Time COVID - 19 07/28/2021 07/29/2021 08/17/2021 12:1 6 AM SENIOR CARE SPECIALIST Assessment Noted Time PHQ-9 Depression Total Score: 2 07/18/20 4:26 PM CDT documented as of this encounter Care Teams Manager Culinary Relationship Specialty Start Date End Date Oswaldo Serrano MD #2 [facility] [address] [place] [address] PCP - General Family Medicine 05/19/17 Angel Crowe DPM #2 [facility] [address] [place] [address] Consulting Physician Podiatry 06/16/17 Mora Fritz [place] Behavioral Health Navigator 06/15/18 Ok Jorge MD #2 [facility] [address] [place] [address] Consulting Physician Endocrinology 05/12/22 Orlin Urbina APRN, REFERENCE LIBRARY ASSISTANT #2 [place] [address] Nurse Practitioner Advanced Practice Nurse 11/09/22 documented as of this encounter
--- OUTSIDE RECORDS SUMMARY | 2025-02-21 17:25 | XMS_ITS | Encounter Summary ---
Author Organization [facility] Address [address] [place] [address] Phone Care Team Providers Care Supervisor Rubber Covering Name Role Phone Oswaldo Serrano MD Primary Care Provider [phone] Angel Crowe DPCiara Unavailable [phone] Mora Fritz Unavailable Unavailable Ok Jorge MD Unavailable Orlin Urbina APRN, ONION TIER Unavailable [phone] Reason for Visit * Reason Comments Medication Refill Encounter Details Date Type Department Care Team (Late st Contact Info) Description 12/10/2020 Refill [facility] - [facility] Medicine - [place] [address] [place] [address] Oswaldo Serrano MD #[address] [address] Medication Refill Social History Tobacco Use Types [...] COVID-19? No / Unsure 12/13/2020 11:23 AM CHIEF SUSTAINABILITY OFFICER documented as of this encounter Miscellaneous [...] Visits 2 days ago [facility] - Oswaldo Moreno MD 1 month ago [facility] - Connor Hutchinson APN, YUDI 2 months ago Flu-like symptoms [facility] - Oswaldo Moreno MD 2 months ago Chronic joint pain [facility] - Oswaldo Moreno MD 4 months ago Diabetic polyneuropathy associated with type 2 diabetes mellitus (HCC) [facility] - Connor Hutchinson APN, YUDI Upcoming Appointments Future Appointments In 5 days Ok Jorge MD [facility] Medical [facility] - Endocrinology - [place], [facility] DOOR TRIMMER - Recent and Past Visits Recent Visits Date Type Provider Dept 12/08/20 Telemedicine Oswaldo Serrano MD [facility] 11/07/20 Telemedicine Connor Yuan APN, YUDI [facility] 10/09/20 Office Visit Oswaldo Serrano, [facility] 09/16/20 Telemedicine Oswaldo Serrano, [facility] 07/18/20 Office Visit Connor Yuan APN, YUDI [facility] 07/11/20 Telemedicine Connor Yuan APN, YUDI [facility] 06/09/20 Office Visit Oswaldo Serrano, MD [facility] 05/29/20 Telemedicine Oswaldo Serrano, MD [facility] 04/07/20 Office Visit Connor Yuan APN, YUDI [facility] [place] 03/18/20 Telemedicine [facility], [facility] Showing recent visits within past 460 days with a meds authorizing provider and meeting all other requirements Future Appointments No visits were found meeting these conditions. Showing future appointments within next 90 days with a meds authorizing provider and meeting all other requirements F SUSTAINABILITY OFFICER documented in this encounter Plan of Treatment Upcoming Encounters Date Type Department Care Team (Late st Contact Info) Description 02/28/2025 3:30 PM CDT Office Visit [facility] Medical [facility] - Endocrinology - [place] #2 [facility] [place] [address] Ok Jorge MD #[address] [address] 03/20/2025 2:30 PM CDT Office Visit [facility] Family Medicine - [place] #2 [facility] [place] [place] [address] Oswaldo Serrano MD #2 [facility] [address] [place] [address] 07/30/2025 2:45 PM CDT Office Visit [facility] #[address] [place] [address] Orlin Urbina APRN, ONION TIER #2 [place] [address] documented as of this encounter Visit Diagnoses Not on filedocumented in this encounter Additional Health Concerns Infection Onset Date Last Indicated Resolved Time COVID - 19 07/28/2021 07/29/2021 08/17/2021 12:1 6 AM CHIEF SUSTAINABILITY OFFICER Assessment Noted Time PHQ-9 Depression Total Score: 2 07/18/20 4:26 PM CDT documented as of this encounter Care Teams Supervisor Rubber Covering Relationship Specialty Start Date End Date Oswaldo Serrano MD #2 [facility] [address] [place] [address] PCP - General Family Medicine 05/19/17 Angel Crowe DPM #2 [facility] [address] [place] [address] Consulting Physician Podiatry 06/16/17 Mora Fritz Behavioral Health Navigator 06/15/18 Ok Jorge MD #2 [facility] [address] [place] [address] Consulting Physician Endocrinology 05/12/22 Orlin Urbina, EXPERIMENTAL BOX TESTER, ONION TIER #2 [place] [address] Nurse Practitioner Advanced Practice Nurse 11/09/22 documented as of this encounter
--- OUTSIDE RECORDS SUMMARY | 2025-02-21 17:25 | XMS_ITS | Encounter Summary ---
Author Organization [facility] Address [address] [place] [address] Phone Care Team Providers Care Buffing Wheel Inspector Name Role Phone Oswaldo Serrano MD Primary Care Provider Angel Crowe DPM Unavailable [phone] Mora Fritz Unavailable Unavailable Ok Jorge MD Unavailable Orlin Urbina APRN, FIELD CARE COORDINATOR Unavailable [phone] Reason for Visit * Reason Comments Medication Refill Encounter Details Date Type Department Care Team (Late st Contact Info) Description 11/26/2020 Refill [facility] Medicine - [place] #2 [place] [address] Connor Yuan APRN, FIELD CARE COORDINATOR #[address] [address] Medication Refill Social History Tobacco Use Types [...] COVID-19? 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 Last OV 11/07/20, F/U 12/08/20, Last Rx 09/11/20 4 capsules with 2 refills take 1 cap once a week Connie DASILVA Requested Prescriptions Pending Prescriptions Disp Refills ergocalciferol (VITAMIN D) 02573 UNIT Capsule [Pharmacy Med Name: VITAMIN D [...] Medicine - [place] Yuan, Connor Santos APN, FIELD CARE COORDINATOR 1 month ago Flu-like symptoms [facility] - [facility] - Oswaldo Moreno MD 2 months ago Chronic joint pain [facility] Oswaldo Moreno MD 4 months ago Diabetic polyneuropathy associated with type 2 diabetes mellitus (HCC) [facility] - Connor Hutchinson APN, CNP 4 months ago [facility] APN, FIELD CARE COORDINATOR Upcoming Appointments Future Appointments In 2 days Ok Jorge MD [facility] Endocrinology [facility] In [facility] week [facility]err[facility] AWNING FINISHER - Recent and Past Visits Recent Visits Date Type Provider Dept 11/07/20 Telemedicine Connor Yuan APN, YUDI [facility] 10/09/20 Office Visit Oswaldo Serrano MD [facility] 09/16/20 Telemedicine Oswaldo Serrano MD [facility] 07/18/20 Office Visit Connor Yuan APN, YUDI [facility] [place] 07/11/20 Telemedicine Connor Yuan APN, YUDI [facility] [place] 06/09/20 Office Visit Oswaldo Serrano MD [facility] 05/29/20 Telemedicine Oswaldo Serrano MD [facility] 04/07/20 Office Visit Connor Yuan APN, YUDI [facility] 03/18/20 Telemedicine Oswaldo Serrano MD [facility] 12/14/19 Office Visit [facility] Showing recent visits within past 460 days with a meds authorizing provider and meeting all other requirements Future Appointments Date Type Provider Dept 12/08/20 Appointment Oswaldo Serrano MD [facility] Showing future appointments within next 90 days with a meds authorizing provider and meeting all other requirements 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 FARMWORKER Assessment Noted Time PHQ-9 Depression Total Score: 2 07/18/20 20 4:26 PM CDT documented as of this encounter Care Teams Buffing Wheel Inspector Relationship Specialty Start Date End Date Oswaldo Serrano MD #[address] [address] PCP - General Family Medicine 05/19/17 Angel Crowe DPM #[address] [address] Consulting Physician Podiatry 06/16/17 Mora Fritz [place] Behavioral Health Navigator 06/15/18 kO Jorge MD #[address] [address] Consulting Physician Endocrinology 05/12/22 Orlin Urbina APRN, FIELD CARE COORDINATOR #[address] [place] [address] Nurse Practitioner Advanced Practice Nurse 11/09/22 documented as of this encounter
--- OUTSIDE RECORDS SUMMARY | 2025-02-21 17:25 | XMS_ITS | Encounter Summary ---
Author Organization [facility] Address [address] [place] [address] Phone Care Team Providers Care Liquid Yeast Supervisor Name Role Phone Oswaldo Serrano MD Primary Care Provider Angel Crowe DPM Unavailable [phone] Mora Fritz Unavailable Unavailable Ok Jorge MD Unavailable Orlin Urbina APRN, SOLE LAYER HAND Unavailable [phone] Reason for Visit * Reason Comments Medication Refill Encounter Details Date Type Department Care Team (Late st Contact Info) Description 11/28/2020 Refill [facility] - Family Medicine - [place] #2 [place] [address] Connor Yuan APRN, SOLE LAYER HAND #[address] [address] Medication Refill Social History Tobacco Use Types [...] COVID-19? No / Unsure 11/28/2020 2:56 PM DIRECTOR OF LEADERSHIP DEVELOPMENT documented as of this encounter Plan of Treatment Upcoming Encounters Date Type Department Care Team (Late st Contact Info) Description 02/28/2025 3:30 PM CDT Office Visit [facility] - Endocrinology - [place] #2 [place] [address] Ok Jorge MD #2 [facility] [address] [place] [address] 03/20/2025 2:30 PM CDT Office Visit [facility] Group - Family Medicine [facility] #2 [place] [id number] Oswaldo Serrano MD #2 [facility] [address] [place] [address] 07/30/2025 2:45 PM CDT Office Visit [facility] #2 [place] [address] Orlin Urbina APRN, SOLE LAYER HAND #2 [place] [address] documented as of this encounter Visit Diagnoses Diagnosis Vitamin D deficiency Unspecified vitamin D deficiency documented in this encounter Additional Health Concerns Infection Onset Date Last Indicated Resolved Time COVID - 19 07/28/2021 07/29/2021 08/17/2021 12:1 6 AM DIRECTOR OF LEADERSHIP DEVELOPMENT Assessment Noted Time PHQ-9 Depression Total Score: 2 07/18/20 20 4:26 PM CDT documented as of this encounter Care Teams Liquid Yeast Supervisor Relationship Specialty Start Date End Date Oswaldo Serrano MD #2 [facility] [address] [place] [address] PCP - General Family Medicine 05/19/17 Angel Crowe DPM #2 [facility] [address] [place] [address] Consulting Physician Podiatry 06/16/17 Mora Fritz [place] Behavioral Health Navigator 06/15/18 Ok Jorge MD #2 [facility] [address] [place] [address] Consulting Physician Endocrinology 05/12/22 Orlin Urbina APRN, SOLE LAYER HAND #2 [place] [address] Nurse Practitioner Advanced Practice Nurse 11/09/22 documented as of this encounter
--- OUTSIDE RECORDS SUMMARY | 2025-02-21 17:25 | XMS_ITS ---
Author Organization [facility] [address] [place], [place] [id number] Care Team Providers Care Transportation Analyst Name Role Phone MAGANAJEREMÍAS Primary Care Provider [phone] Allergies Allergen (clinical drug ingredient) Drug/Non Drug Allergy documented on EMR Reaction Allergy Type Onset Date Status Substance with sulfonamide structure and antibacterial mechanism of action (substance) Sulfa Antibiotics Unknown Drug Allergy Active REASON FOR VISIT Routine follow up Medications Medication SIG (Take, Route, Frequency, Duration) Notes Start Date End Date Status NovoLOG FlexPen 100 UNIT/ML 10 units plus sliding scale Subcutaneous three times a day 08/09/2024 Active Xarelto 20 MG 1 tablet with food Orally Once a day Active Docusate Sodium [...] tablet Oral ly Once a day Active Cefadroxil 500 MG 2 capsules Orally ev jolene 12 hrs for 30 days 08/09/2024 02/05/2025 Active Vitamin D 125 MCG (5000 UT) 1 capsule Orally Once a day 08/09/2024 Active Magnesium Oxide 400 MG 2 tablets Orally Once a day 08/09/2024 Active Basaglar KwikPen 100 UNIT/ML 18 units Subcutaneous daily 08/09/2024 Active Metoprolol Succinate ER 100 MG 1 tablet Orally Once a day Active Albuterol Sulfate HFA 108 (90 Base) MCG/ACT 2 puffs as needed Inhalation every 4 hrs Active Furosemide 40 MG 1 tablet Orally twic e a day Active Omeprazole 20 MG 1 capsule 1/2 [...] phone, visiting friends or family, going to confucianism or club meetings) I choose not to answer this question How stressed are you? Stress is when someone feels tense, nervous, anxious, or can't sleep at night because their mind is troubled I choose not to answer this question In the past year have you sp ent more than 2 nights in a row in a group home, retirement, mcc center, or juvenile correctional facility? I choose [...] Problem Status W/U Status Risk Notes Problem Obese class III (finding) (188198280) Obesity, class 3 (E66.813) 01/31/20 25 Active confirmed Problem Inappropriate diet and eating habits (7894753977539) Inappropriate diet and eating habits (Z72.4) 01/31/20 25 Active confirmed Problem [id number] Chronic systolic congestive heart failure (I50.22) Active confirmed Vital Signs Temperature 98.0 degrees Fahrenheit 01/31/20 25 Blood pressure systolic 109 mm Hg 01/31/20 25 Blood pressure diastolic 77 mm Hg 025 Heart Rate 94 /min 01/30/2025 Respiratory Rate 20 /min 01/30/2025 Height 65 in 01/30/2025 Weight 287.0 lbs 01/30/2025 BMI 47.75 kg/m2 01/30/2025 Oximetry 94 % 01/30/2025 Height-cm 165.1 cm 01/30/2025 Weight-kg 130.18 kg 01/30/2025 Encounters Encounter Location Date Provider Diagnosis [facility] [address] [place], [place] [id number] 01/30/2025 JEREMÍAS MAGANA Acute bacterial endocarditis I33.0 ; Infection of implantable cardioverter-defibril lator (ICD) generator, initial encounter T82.7XXA ; Chronic systolic congestive heart failure I50.22 ; Obesity, class 3 E66.813 and Inappropriate diet and eating habits Z72.4 Assessments Encounter Date Diagnosis (ICD Code) Assessment Notes Treatment Notes Treatment Clinical Notes Section Notes 01/30/2025 Acute bacterial endocarditis (ICD-10 - I33.0) A long discussion is had with the patient and her sister about the importance of restarting the antibiotics at the correct dosing and she is given refills. This will be lifelong therapy as she is no longer a candidate for PPM change or valvular surgery. She will follow up with the acetylene plant operator as she has severe CHF, valvular dysfunction, and is volume overloaded. Given her inability to comply with medications, a CPAP, weight loss, low sodium diet, and is no longer a surgical candidate, she is encouraged to talk with the acetylene plant operator about the possiblity for hospice care. In the interim, she will continue the antibiotics, call/go to the hospital with fever or worsening of symptoms, and return in 6 months as getting her to appointments is difficult for the sister. 01/30/2025 Infection of implantable cardioverter-defi brillator (ICD) generator, initial encounter (ICD-10 - T82.7XXA) As above. 01/30/2025 Chronic systolic congestive heart failure (ICD-10 - I50.22) As above. 01/30/2025 Obesity, class 3 (ICD-10 - E66.813) 01/30/2025 Inappropriate diet and eating habits (ICD-10 - Z72.4) Plan Of Treatment Treatment Notes Assessment Notes Acute bacterial endocarditis A long disc ussion is had with the patient and her sister about the importance of restarting the antibiotics at the correct dosing and she is given refills. This will be lifelong therapy as she is no longer a candidate for PPM change or valvular surgery. She will follow up with the acetylene plant operator as she has severe CHF, valvular dysfunction, and is volume overloaded. Given her inability to comply with medications, a CPAP, weight loss, low sodium diet, and is no longer a surgical candidate, she is encouraged to talk with the acetylene plant operator about the possiblity for hospice care. In the interim, she will continue the antibiotics, call/go to the hospital with fever or worsening of symptoms, and return in 6 months as getting her to appointments is difficult for the sister. Infection of implantable cardioverter-defibrillator (ICD) generator, initial encounter As above. Chronic systolic congestive heart failur e As above. Next Appt Details Follow Up: 6 Months, Reason: Provider Name:JEREMÍAS Mills, 08/01/2025 01:00:00 PM, [facility] [facility], [place] [address], [place], [place], [id number], Progress Notes * Daria RODRIGUEZOB:[birth year] (64 yo F)Acc No.[id number]:01/30/2025 Progress Notes Patient: Loretta NAM Provider: Erick Magana M.D. :1960 A ge:64 Y S ex:Female Date:01/30/2025 Address:[address] [id number] Subjective: * Chief Complaints: * R outine follow up * HPI: R outine: Ms. Rodriguez is a 64 year old woman who presents for a routine follow up. She was advised to return in 3 months and has instead been brought back in by her sister after 5 months. She has an intellectual disability and is unable to make her own medical decisions. The history is obtained through her, her sisters, and hospital records. At her last visit, she stood outside the exam room screaming vulgarities at me and refused to be examined. Today she is calm and more appropriate. Since her last visit, she was admitted from 10/12 until 10/24/24 with CHF and a LHC was normal except for an EF of 20%. A CHANCE revealed resolution of a previous lead infection and TV vegetation but she has persistent moderate MR and severe TR with an EF of 20- 25%. Her WBC was normal and they did not repeat blood cultures. She is not having fever or chills. She is meant to be on cefadroxil for MSSA endocarditis and has either not been taking it or significantly underdosing as she never filled it at the pharmacy and reports the hospital gave her 5 months at her original hospital discharge, but it is unlikely they gave her 600 capsules at discharge. She has a history of a dilated cardiomyopathy, atrial fibrillation, ventricular fibbrilation, and ventricular tachycardia and had an AICD placed years ago which occasionally would go off when she went into an abnormal rhythm. She refues to wear a ventricular defibrillation vest and is no longer considered to be a surgical candidate for a new PPM or valve repair/replacement. She has gained 34 pounds of water weight since her last visit, has chronic fatigue, and mild SOB. She does not require oxygen yet. She was tried on entresto and jardiance but stopped both due to perceived side effects. She has JOSE and refuses to wear a CPAP. * ROS: G en: Good health, No sleep Problems, No fever, 34 pound weight gain, Mild Fatigue Skin: No rash, No itching [...] Global hypokinesis, EF 21%, no ischemia CHANCE: 10/18/24 - Resolved TV vegetation, Retained pulmonary artery lead, dilated cardiomyopathy, EF 20-25%, Moderate MR, Severe TR LHC: 10/18/24 - Minimal CAD, EF 20% CT Brain: 10/13/24 - Negative. * Medical History: * Surgical History: C holecystectomy AICD placement then removal * Hospitalization/Major Diagno stic Procedure: * Family History: F ather: . M other: . * Social History: S ocial Determinants: Elzbieta Rockwell ate Completed/Updated: 0 01/30/2025 W hat is your current housing situation? I have housing A re you worried about losing your housing? No W hat is the highest level of school that you have finished? I choose not to answer this question W hat is your current work situation? I choose not to answer this question I n the past year, have you or any family members you live with been unable to get any of the following when it was really needed? Check all that apply F ood H as lack of transportation kept you from medical appointments, meetings, work or from getting things needed for daily living? N o H ow often do you see or talk to people that you care about and feel close to? (For example: talking to friends on the phone, visiting friends or family, going to confucianism or club meetings) I choose not to answer this question H ow stressed are you? Stress is when someone feels tense, nervous, anxious, or can't sleep at night because their mind is troubled I choose not to answer this question I n the past year have you spent more than 2 nights in a row in a group home, retirement, mcc center, or juvenile correctional facility? I choose not to answer this question A re you a refugee? N o W hat [place] are you from[place] D o you feel physically and emotionally safe where you currently live? Y es I n the past year, have you been afraid of your partner or ex-partner? Juan Luis JONES Score: 1 S he lives alone but receives help with all of her ADLs by her sisters. She denies tobacco, alcohol, or illicit drug use. * Medications: T akingEscitalopram Oxalate 10 MG Tablet 1 tablet Orally [...] sliding scale Subcutaneous three times a day Metoprolol Succinate ER 100 MG Tablet Extended Release 24 Hour 1 tablet Orally Once a day Basaglar KwikPen 100 UNIT/ML Solution Pen-injector 18 units Subcutaneous daily Furosemide 40 MG Tablet 1 tablet Orally twice a day Albuterol Sulfate HFA 108 (90 [...] scale Subcutaneous three times a day Taking Metoprolol Succinate ER 100 MG Tablet Extended Release 24 Hour 1 tablet Orally Once a day Taking Basaglar KwikPen 100 UNIT/ML Solution Pen-injector 18 units Subcutaneous daily Taking Furosemide 40 MG Tablet 1 tablet Orally twice a day Taking Albuterol Sulfate HFA 108 (90 Base) MCG/ACT Aerosol Solution 2 puffs as needed Inhalation every 4 hrs Taking Omeprazole 20 MG Capsule Delayed Release 1 capsule 1/2 to 1 hour before morning meal Orally Once a day Taking Cefadroxil 500 MG Capsule 2 capsules Orally every 12 hrs , stop date 02/05/2025Medication List reviewed and reconciled with the patient * Allergies: Lina Benoit[Allergies Verified] Objective: * Vitals: B P:109/77mm Hg, HR:94/min, RR:20/min, Temp:98.0F, Oxygen sat %:94%, Wt:287.0lbs, Wt-k.18 kg, Ht: 65 in, Ht-cm: 165.1 cm, BMI:47.75Index, Body Surface Area: 2.44. * Physical Examination: G en: Obese, quiet, refuses to answer questions and just keep muttering I want a new pacemaker , sallow appearance. Skin: No rash. HEENT: OSTEOPATHIC PHYSICIAN patent, Narrowed posterior pharynx, PERRL, Conjunctiva pink, Sclera anicteric, MMM, No thrush, Good dentition. Neck: Supple, Thick, No LAD, No thyromegaly, No carotid bruits. Chest: CTA bilaterally without wheezes. CV: RRR without murmur. Abdomen: Soft, NT, ND, active BS, No HSM. . Not performed. Extremity: No cyanosis or clubbing. 2+ lower extremity edema. 2+ radial/DP pulses bilaterally. Neuro: Gait slow with a rolling walker, A&O x 4, CN 2-12 intact bilaterally, Reflexes 2+ brachial and patellar, Motor 5/5 throughout, Sensory normal grossly. Assessment: * Assessment: 1. A cute bacterial endocarditis - I33.0 (Primary) 2 . I nfection of implantable cardioverter-defibrillator (ICD) generator, initial encounter - T82.7XXA 3 . Chronic systolic congestive heart failure - I50.22 4 . O besity, class 3 - E66.813 5 . I nappropriate diet and eating habits - Z72.4 Plan: * Treatment: 2. I nfection of implantable cardioverter-defibrillator (ICD) generator, initial encounter Notes: As above. 3. C hronic systolic congestive heart failure Notes: As above. * Procedure Codes: 9 9401 P/M SURGERY TEACHER, INDIV 15 MIN * Follow Up: 6 Months * Billing Information: * Visit Code: 83646 Office Visit, Est Pt., Level 4. * Procedure Codes: 35663 P/M SURGERY TEACHER, INDIV 15 MIN. * Sign off status: Completed true * Provider: Erick Magana M.D. Date: 01/30/2025 Generated for Howard wang/Latoya/Raquel on: 0 02/21/2025 05:24 PM CDT History and Physical Notes * HPI (History of Present Illness) Category Sub-Category Detail Notes Category Not es Routine Ms. Rodriguez is a 64 year old woman who presents for a routine follow up. She was advised to return in 3 months and has instead been brought back in by her sister after 5 months. She has an intellectual disability and is unable to make her own medical decisions. The history is obtained through her, her sisters, and hospital records. At her last visit, she stood outside the exam room screaming vulgarities at me and refused to be examined. Today she is calm and more appropriate. Since her last visit, she was admitted from 10/12 until 10/24/24 with CHF and a LHC was normal except for an EF of 20%. A CHANCE revealed resolution of a previous lead infection and TV vegetation but she has persistent moderate MR and severe TR with an EF of 20-25%. Her WBC was normal and they did not repeat blood cultures. She is not having fever or chills. She is meant to be on cefadroxil for MSSA endocarditis and has either not been taking it or significantly underdosing as she never filled it at the pharmacy and reports the hospital gave her 5 months at her original hospital discharge, but it is unlikely they gave her 600 capsules at discharge. She has a history of a dilated cardiomyopathy, atrial fibrillation, ventricular fibbrilation, and ventricular tachycardia and had an AICD placed years ago which occasionally would go off when she went into an abnormal rhythm. She refues to wear a ventricular defibrillation vest and is no longer considered to be a surgical candidate for a new PPM or valve repair/replacement. She has gained 34 pounds of water weight since her last visit, has chronic fatigue, and mild SOB. She does not require oxygen yet. She was tried on entresto and jardiance but stopped both due to perceived side effects. She has JOSE and refuses to wear a CPAP. Physical Examination Category Sub-Category Detail Notes Section Note s Gen: Obese, alayna et, refuses to answer questions and just keep muttering I want a new pacemaker , sallow appearance. Skin: No rash. HEENT: OSTEOPATHIC PHYSICIAN patent, Narrowed posterior pharynx, PERRL, Conjunctiva pink, Sclera anicteric, MMM, No thrush, Good dentition. Neck: Supple, Thick, No LAD, No thyromegaly, No carotid bruits. Chest: CTA bilaterally without wheezes. CV: RRR without murmur. Abdomen: Soft, NT, ND, active BS, No HSM. . Not performed. Extremity: No cyanosis or clubbing. 2+ lower extremity edema. 2+ radial/DP pulses bilaterally. Neuro: Gait slow with a rolling walker, A&O x 4, CN 2-12 intact bilaterally, Reflexes 2+ brachial and patellar, Motor 5/5 throughout, Sensory normal grossly.
--- OUTSIDE RECORDS SUMMARY | 2025-02-21 17:26 | XMS_ITS | Referral Summary ---
Author Organization [facility] Address [address] [place] [address] Care Team Providers Care Customer Contact Specialist Name Role Phone Oswaldo Serrano MD Primary Care Provider [phone] Pastora Flores MD Unavailable Sandro Hong MD Unavailable Allergies Active Allergy Reactions Criticality Noted Date Comments Sulfa (Sulfonamide Antibiotics) Medications escitalopram (LEXAPRO) 10 mg tablet Take 1 tablet (10 mg total) by mouth daily 4 Active ferrous sulfate 325 mg (65 mg of elemental iron) tablet Take 1 tablet (325 mg total) by mouth daily Active levothyroxine (SYNTHROID) 75 mcg tablet Take [...] 1 tablet by mouth daily Active multivit cftafipy-lflw-P A-calcium (THERA-M) 9 mg iron-400 mcg tablet [...] (six) hours as needed for wheezing Active magnesium oxide (MAG-OX) 400 mg (241.3 mg elemental magnesium) tabletIndicatio ns:hypomagnesem ia Take 1 tablet (400 mg total) by mouth daily 30 tablet 4 Active pen needle, diabetic 32 gauge x needle Use as directed 3 times a day. 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 Take 2 capsules (1,000 mg total) by mouth 2 (two) times a day 360 capsule 3 4 08/02/20 25 Active lidocaine (LMX) 4 % cream Apply 2.5 g (1 Application total) topically daily 30 g 2 4 10/12/19 27 Active spironolactone (ALDACTONE) 25 mg tablet Take 0.5 tablets (12.5 mg total) by mouth daily 15 tablet 11 4 08/02/20 25 Active furosemide (LASIX) 40 mg tablet Take 1 tablet (40 mg total) by mouth daily 90 tablet 3 4 08/02/20 25 Active metoprolol XL (TOPROL-XL) 100 mg 24 hr tablet Take 1 tablet (100 mg total) by mouth daily 90 tablet 4 Active insulin aspart (NovoLOG) 100 unit/mL (3 mL) pen for injection Inject 11 Units under the skin 3 (three) times a day before meals 29.7 mL 1 4 Active lidocaine (ASPERCREME) 4 % adhesive patch,medicated Place 1 patch on the skin daily as needed Active polyethylene glycol (MIRALAX) 17 gram packetIndicatio ns:constipation Take 1 packet (17 g total) by mouth daily as needed for constipation Active diphenhydrAMINE HCL 2 % gel Apply topically every 6 (six) hours as needed Active acetaminophen (TYLENOL) 500 mg tablet Take 1 tablet (500 mg total) by mouth every 6 (six) hours as needed for pain Active sacubitriL-vals mariza (ENTRESTO) 24-26 mg tabletIndicatio ns:chronic heart failure Take 1 tablet by mouth every morning Active insulin glargine 100 unit/mL (3 mL) pen for injection Inject 15 Units under the skin every morning 5 Active empagliflozin (JARDIANCE) 10 mg tabletIndicatio ns:Heart Failure Take 1 tablet (10 mg total) by mouth daily 30 tablet 5 Active hydrOXYzine (ATARAX) 25 mg tablet Take 1 tablet (25 mg total) by mouth every 4 (four) hours as needed for itching or anxiety 60 tablet 5 Active Active Problems Problem Noted Date Diagnosed Date ACP (advance care planning) 10/24/2024 CHF (congestive heart failur e), NYHA class I, acute on chronic, combined 10/12/2024 Acute on chronic congestive heart failure 2024 Osteomyelitis 07/07/2024 Ventricular tachycardia 06/11/2024 Chronic diastolic congestive heart failure 06/11 Endocarditis 06/11/2024 Urinary frequency 06/11/2024 Gastroesophageal reflux disease without esophagi tis 06/11/2024 Paroxysmal atrial fibrillation 06/11/2024 Major depressive disorder 06/11/2024 CKD (chronic kidney disease) 06/11/2024 Traumatic hematoma of right upper arm 06/06/2024 Hypotension due to drugs 06/06/2024 SOB (shortness of breath) 05/30/2024 Acute on chronic systolic congestive heart failu re 05/30/2024 Neck pain 05/30/2024 Hyponatremia 05/30/2024 Chronic a-fib 05/30/2024 Controlled type 2 diabetes m pancho with chronic kidney disease, with long-term current use of insulin 05/30/2024 Hypothyroidism 05/30/2024 JOSE (obstructive sleep apnea) 05/30/2024 Diabetes mellitus with hyperglycemia 05/30/2024 Endocarditis 05/29/2024 Social History Tobacco Use Types Packs/Day Years Used Date Smoking Tobacco: Never Smokeless Tobacco: Never Tobacco Cessation:Counseling Given: No [facility] Utilities Answer Date Recorded In the past 12 months has th e electric, gas, oil, or water company threatened to shut off services in your home? No 10/16/2024 Social Connection and Isolat ion Panel [NHANES] Answer Date Recorded In a typical week, how many times do you talk on the phone with family, friends, or neighbors? More than three times a week 10/16/2024 How often do you get togethe r with friends or relatives? More than three times a week 10/16/2024 How often do you attend chur ch or muslim services? Never 10/16/2024 Do you belong to any clubs o r organizations such as lutheran groups, unions, fraternal or athletic groups, or school groups? No 10/16/2024 How often do you attend meet ings of the clubs or organizations you belong to? Never 10/16/2024 Are you , , di vorced, , never , or living with a partner? 10/16/2024 AUDIT-C Answer Date Recorded Q1: How often [...] medical care, and heating? Not very hard 10/16/2024 PHQ-2 Answer Date Recorded PHQ-2 Total Score 2 07/07/2024 Hunger Vital Sign Answer Date Recorded Within the past 12 months, y ou worried that your food would run out before you got the money to buy more. Never true 10/16/19 25 Within the past 12 months, t he food you bought just didn't last and you didn't have money to get more. Never true 10/16/2024 PRAPARE - Transportation Answer Date Re corded In the past 12 months, has l ack of transportation kept you from medical appointments or from getting medications? No 04/2025 In the past 12 months, has l ack of transportation kept you from meetings, work, or from getting things needed for daily living? No 10/16/2024 Housing Stability Vital Sign Answer Charlie e Recorded In the last 12 months, was t here a time when you were not able to pay the mortgage or rent on time? No 10/16/2024 In the past 12 months, how m any times have you moved where you were living? 0 10/16/2024 At any time in the past 12 m [facility], were you homeless or living in a jail (including now)? No 10/16/2024 Personal Safety Answer Date Recorded Have you ever been in or are you currently in a harmful physical or emotional relationship or is someone making you feel afraid or unsafe? Denies 10/12/2024 Comments No Sex and Gender Information Value Date Recorded Sex Assigned at Not on file Legal Sex Female 3:51 AM CONFIDENTIAL SECRETARY Gender Identity Not on file Sexual Orientation Not on file Last Filed Vital Signs Vital Sign Reading Time Taken Comments Blood Pressure 135/87 10/24/2024 7:35 AM CONFIDENTIAL SECRETARY Pulse 128 10/24/2024 9:46 AM CONFIDENTIAL SECRETARY Temperature 36.7 C (98.1 F) 10/24/2024 7:35 AM CONFIDENTIAL SECRETARY Respiratory Rate 18 10/24/2024 7:35 AM CONFIDENTIAL SECRETARY Oxygen Saturation 93% 10/24/2024 7:35 AM CONFIDENTIAL SECRETARY Inhaled Oxygen Concentration - - Weight 117.2 kg (258 lb 7.5 oz) 10/21/2024 4:45 AM CONFIDENTIAL SECRETARY Height 165.1 cm (5' 5 ) 10/12/2024 10:1 5 PM CONFIDENTIAL SECRETARY Body Mass Index 43.01 10/12/2024 10:15 PM CONFIDENTIAL SECRETARY Plan of Treatment Not on file Medical Devices Implanted Type Area Dentist Device Identifier Shelf Expiration Date Model / Serial / Lot Biotronik Iperia 7 Drt-05/20/2017 Implanted:08/2017 by Jasper Mcfarland MD (Quantity not on file) ICD Chest Wall Biotronik [id number] / [id number] / Biotronik Rv Lead [id number]/2 [id number] Implanted:08/2017 (Quantity not on file) Lead Heart [id number] / [id number] / Biotronik Ra Lead [id number]/2 [id number] Implanted: (Quantity not on file) Lead Heart Biotronik [id number] / [id number] / Unknown Wire (~5cm Long) Other - see comments Chest Stent Stent Heart [place] Mynxgrip 5fr Balloon Catheter Integrate Sealant Lock Latex Free [id number] - [id number] Implanted:Qty : 1 on 10/23/2024 by Sandro Hong MD at [facility] 07/17/2026 [id number] / / [id number] Procedures Procedure Name Priority Date/Time Associated Diagnosis Comments EGFR Routine 10/24/2024 3:15 AM CONFIDENTIAL SECRETARY HEMOGLOBIN A1C Routine 10/21/2024 10:04 PM CONFIDENTIAL SECRETARY HEPATITIS PANEL, ACUTE Routine 10/12/2024 7:04 PM CONFIDENTIAL SECRETARY LIPID PANEL Routine 07/10/2024 2:21 PM CDT COLONOSCOPY REPORT 03/04/2017 from Last 3 Months or Most Recently Relevant to Health Maintenance Results * eGFR (10/24/2024 3:15 AM CONFIDENTIAL SECRETARY) eGFR 72 >=60 mL/min/1. 73 m2 Comment: Interpretive Data Reference Interval Normal >/= 90 mL/min/1.73m2 Mildly decreased* 60 - 89 mL/min/1.73m2 Mildly to moderately decreased 45 - 59 mL/min/1.73m2 Moderately to severely decreased 30 - 44 mL/min/1.73m2 Severely decreased 15 - 29 mL/min/1.73m2 Kidney Failure < 15 mL/min/1.73m2 *Relative to young adult level Estimated glomerular [...] interpretive data was last reviewed 2021. Blood 10/24/2024 3:15 AM CONFIDENTIAL SECRETARY 10/24/2024 3:57 AM CONFIDENTIAL SECRETARY Flakito Alejandra NP LAB BLOOD ORDERABLES Ayanna l Result Performing Organization Address [facility] Co de Phone Number [facility] CAR [address] [employer] [place] [address] * (ABNORMAL) Hemoglobin A1c (10/21/2024 10:04 PM CONFIDENTIAL SECRETARY) [facility] [address] [facility] Hgb A1C 8.3(H) 4.0 - 5.6 % Estimated Average Glucose 192 mg/dL [facility] Comment: The ADA recommends reporting an estimated Average Glucose (eAG) with all Hemoglobin A1c results using the equation derived from a study of 507 normal and diabetic adults. Minority populations were underrepresented and children were not included. (Diabetes Care 31:8331-4775, 2008). The eAG is not equivalent to a fasting glucose. Blood 10/21/2024 10:0 4 PM CONFIDENTIAL SECRETARY 10/21/2024 10:10 PM CONFIDENTIAL SECRETARY Ranjit Trammell MD LAB BLOOD ORDERABLES Final R esult Performing Organization Address [facility] de Phone Number [facility] CAR [address] [address] [facility] [employer] [place] [address] * (ABNORMAL) Hepatitis panel, acute Blood (10/12/2024 7:04 PM CONFIDENTIAL SECRETARY) [facility] [address] Hep A IgM Nonreactive Nonreactive Comment: Interpretive Data: If Hep A IgM Ab is reported as Equivocal, a new sample should be drawn in two weeks for testing. Current interpretive data was last revised on 19. Hep B core IgM Nonreactive Nonreactive [facility] Comment: Interpretive Data If HepB Core IgM Ab is reported as Equivocal, a new sample should be drawn in two weeks for testing. Current interpretive data was last revised on 19. Hep C Ab Reactive(A) Nonreactive [facility] Comment: Critical Result Critical Result called to and read back by Coleen Worrell, DATE: 2024-10-12 21:02:05 BY: Jennifer howard Interpretive Data Nonreactive: Antibodies to HCV not detected. Does NOT exclude the possibility of recent exposure to HCV. Equivocal: Equivocal for HCV antibodies. Supplemental molecular testing will be automatically performed to determine infection status in accordance with current CDC screening recommendations. Reactive: Positive for HCV antibodies. This may represent current or past HCV infection. Supplemental molecular testing will be automatically performed to determine current infection status in accordance with current CDC screening recommendations. Interpretive data was last revised on 2019. HepBsAg Nonreactive Nonreactive [facility] Blood 10/12/2024 7:04 PM CONFIDENTIAL SECRETARY 10/12/2024 7:10 PM CONFIDENTIAL SECRETARY us Flakito Alejandra NP LAB MICROBIOLOGY - [facility] L ORDERABLES Final Result [facility] [id number] [place] [address] * Lipid panel (07/10/2024 2:21 PM CDT) Cholesterol 180 30 - 199 mg/dL Comment: Hemolyzed; result may be falsely elevated Interpretive Data Ages < or = 19 years Acceptable: <170 mg/dL Borderline high: 170-199 mg/dL High: >or= 200 mg/dL Ages > or = 20 years Desirable: <200 mg/dL Borderline high: 200-239 mg/dL High: >or= 240 mg/dL Literature References: 1. Expert Panel on Integrated Guidelines for Cardiovascular Health and Risk Reduction in Children and Adolescents. Pediatrics 2011;128:S213 2. NCEP Expert Panel. Circulation 2004;110:227 Current Interpretive Data was last revised on 2018. Triglycerides See Comment <=149 mg/dL [facility] Comment: Credited; Hemolyzed Specimen Interpretive Data Ages < or = 9 years Acceptable: <75 mg/dL Borderline high: 75-99 mg/dL High: >or= 100 mg/dL Ages 10 to 20 years Acceptable: <90 mg/dL Borderline high: 90-129 mg/dL High: >or= 130 mg/dL Ages > or = 20 years Desirable: <150 mg/dL Borderline high: 150-199 mg/dL High: 200-499 mg/dL Very high: >or= 499 mg/dL Literature References: 1. Expert Panel on Integrated Guidelines for Cardiovascular Health and Risk Reduction in Children and Adolescents. Pediatrics 2011;128:S213 2. NCEP Expert Panel. Circulation 2004;110:227 Current Interpretive Data was last revised on 2018. HDL 49 >=40 mg/dL [facility] Comment: Interpretive Data Ages < or = 19 years Acceptable: >45 mg/dL Borderline low: 40-45 mg/dL Low: <40 mg/dL Ages > or = 20 years Desirable: >or= 60 mg/dL Low: <40 mg/dL Literature References: 1. Expert Panel on Integrated Guidelines for Cardiovascular Health and Risk Reduction in Children and Adolescents. Pediatrics 2011;128:S213 2. NCEP Expert Panel. Circulation 2004;110:227 Current Interpretive Data was last revised on 2018. LDL, calculated See Comment <=129 [facility] Comment: Unable to calculate Interpretive Data Ages < or = 19 years Acceptable: <110 mg/dL Borderline high: 110-129 mg/dL High: >or= 130 mg/dL Ages > or = 20 years Optimal: <100 mg/dL Near optimal: 100-129 mg/dL Borderline high: 130-159 mg/dL High: >160 mg/dL Calculated using the Lenin LDL-C estimating [...] on 2024. Non-HDL Cholesterol 131 mg/dL [facility] Comment: Interpretive Data Ages < or = 19 years Acceptable: <120 mg/dL Borderline high: 120-144 mg/dL High: >145 mg/dL Ages > or = 20 years When triglycerides are >200 mg/dL, Non-HDL cholesterol is a secondary target of therapy with treatment goals that are 30 mg/dL greater than the LDL cholesterol target. Literature References: 1. Expert Panel on Integrated Guidelines for Cardiovascular Health and Risk Reduction in Children and Adolescents. Pediatrics 2011;128:S213 2. NCEP Expert Panel. Circulation 2004;110:227 Current Interpretive Data was last revised on 2018. Chol/HDL ratio 4 ZAKIYAIZZY ALEXANDER Blood 07/10/2024 2:21 PM CDT 07/10/2024 3:26 PM CDT Elvira Cooper MD LAB BLOOD ORDERABLES Edit ed Result - Final [facility] [place] [address] * COLONOSCOPY REPORT (03/04/2017) Anatomical Region Laterality Modality Other Narrative 03/04/2017 Ordered by an unspecified provider. Historical Provider GI PROCEDURE ORDERABLES F inal Result from Last 3 Months or Most Recently Relevant to Health Maintenance Insurance MEDICARE [facility] Member Subscriber Plan / Payer (Ef fective 2024-Present) Name:Loretta Penn V Relation to Subscriber:Self Name:Loretta Penn V Payer ID:[id number] (NAIC) Group ID:Not on file Type:MEDICAID RISK OTHER Address: ATTN: CLAIMS DEPT [address] [place] [id number] [facility] Member Subscriber Plan / Payer (Ef fective 2021-Present) Name:Loretta Penn V Relation to Subscriber:Self Name:Loretta Penn V Payer ID:[id number] (NAIC) Type:MEDICARE RISK OTHER Address: [facility] ATTN: CLAIMS [address] [facility] [place] [phone] [facility] Advance Directives For more information, please contact: [phone] * Full Code (Latest Code Status on File) Date Activated Date Inactivated Comments 10/12/2024 4:46 PM 10/24/2024 7:23 PM * Full Code Date Activated Date Inactivated Comments 07/07/2024 12:15 AM 08/02/2024 9:58 PM * Full Code Date Activated Date Inactivated Comments 06/11/2024 2:55 AM 06/21/2024 8:49 PM * Full Code Date Activated Date Inactivated Comments 05/29/2024 9:54 PM 06/09/2024 3:14 AM Care Teams Customer Contact Specialist Relationship Specialty Start Date End Date Oswaldo Serrano MD [address] [address] PCP - General Family Medicine 04/14/18 [place] [address] [address] Consulting Physician Cardiology 06/08/24 Sandro Hong MD [address] [place] [address] Referring Physician Cardiology 06/21/24
--- OUTSIDE RECORDS SUMMARY | 2025-02-21 17:26 | XMS_ITS | Encounter Summary ---
Author Organization [facility] Address [address] [place] [address] Phone Care Team Providers Care Platen Grinder Name Role Phone Oswaldo Serrano MD Primary Care Provider [phone] Angel Crowe DPCiara Unavailable [phone] Mora Fritz Unavailable Unavailable Ok Jorge MD Unavailable Orlin Urbina APRN, 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 Unavailable [phone] Reason for Visit * Reason Comments Medication Refill Encounter Details Date Type Department Care Team (Late st Contact Info) Description 08/11/2022 Refill [facility] - [facility] Medicine - [place] [address] [place] [address] Oswaldo Serrano MD [address] [address] Medication Refill Social History Tobacco Use Types [...] Dept 05/25/22 Office Visit Tom Quach MD [facility] 01/05/22 Office Visit Oswaldo Serrano MD [facility] 10/07/21 Office Visit Oswaldo Serrano MD [facility] Showing recent visits within past 365 days and meeting all other requirements Future Appointments No visits were found meeting these conditions. Showing future appointments within next 90 days and meeting all other requirements documented in this encounter Plan of Treatment Upcoming Encounters Date Type Department Care Team (Late st Contact Info) Description 02/28/2025 3:30 PM CDT Office Visit [facility] - Endocrinology - [facility] [address] [place] [address] Ok Jorge MD [address] [address] 03/20/2025 2:30 PM CDT Office Visit [facility] - Family [facility] [address] [place] [address] Oswaldo Serrano MD [address] [address] 07/30/2025 2:45 PM CDT Office Visit [facility] UROLOGY [address] [place] [address] Orlin Urbina APRN, 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 [address] [place] [address] documented as of this encounter Visit Diagnoses Not on filedocumented in this encounter Additional Health Concerns Assessment Noted Time PHQ-9 Depression Total Score: 2 07/18/20 20 4:26 PM CDT documented as of this encounter Care Teams Platen Grinder Relationship Specialty Start Date End Date Oswaldo Serrano MD [address] [address] PCP - General Family Medicine 05/19/17 Angel Crowe DPM [address] [address] Consulting Physician Podiatry 06/16/17 Mora Fritz Behavioral Health Navigator 06/15/18 Ok Jorge MD #[address] [address] Consulting Physician Endocrinology 05/12/22 Orlin Urbina APRN, 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 [address] [place] [address] Nurse Practitioner Advanced Practice Nurse 11/09/22 documented as of this encounter
--- OUTSIDE RECORDS SUMMARY | 2025-02-21 17:26 | XMS_ITS | Encounter Summary ---
Author Organization [facility] Address [address] [place] [address] Phone Care Team Providers Care Recording Studio Setup Worker Name Role Phone Oswaldo Serrano MD Primary Care Provider Angel Crowe DPM Unavailable [phone] Mora Fritz Unavailable Unavailable Ok Jorge MD Unavailable Orlin Urbina APRN, CHEF PASSENGER VESSEL Unavailable [phone] Reason for Visit * Reason Comments Medication Refill Encounter Details Date Type Department Care Team (Late st Contact Info) Description 02/03/2022 Refill [facility] [address] [place] [address] Oswaldo Serrano MD [address] [address] Medication Refill Social History Tobacco Use Types [...] [place] 10/27/21 Office Visit Orlin Urbina APRN, CHEF PASSENGER VESSEL [facility] 10/07/21 Office Visit Oswaldo Serrano MD [facility] 07/28/21 Telemedicine Oswaldo Serrano MD [facility] 05/14/21 Office Visit Connor Yuan APRN, CHEF PASSENGER VESSEL [facility] 02/27/21 Office Visit Oswaldo [...] [place] 10/27/21 Office Visit Orlin Urbina APRN, CHEF PASSENGER VESSEL [facility] [place] 10/07/21 Office Visit Oswaldo Serrano MD [facility] 07/28/21 Telemedicine Oswaldo Serrano MD [facility] 05/14/21 Office Visit Connor Yuan APRN, CHEF PASSENGER VESSEL [facility] 02/27/21 Office Visit Oswaldo [...] 02/28/2025 3:30 PM CDT Office Visit [facility] - Endocrinology - [place] [address] [place] [address] Ok Jorge MD [address] [address] 03/20/2025 2:30 PM CDT Office Visit [facility] - Family [facility] [address] [place] [address] Oswaldo Serrano MD #[address] [address] 07/30/2025 2:45 PM CDT Office Visit [facility] UROLOGY [address] [place] [address] Orlin Urbina APRN, CHEF PASSENGER VESSEL [address] [place] [address] documented as of this encounter Visit Diagnoses Not on filedocumented in this encounter Additional Health Concerns Assessment Noted Time PHQ-9 Depression Total Score: 2 07/18/20 20 4:26 PM CDT documented as of this encounter Care Teams Recording Studio Setup Worker Relationship Specialty Start Date End Date Oswaldo Serrano MD #[address] [address] PCP - General Family Medicine 05/19/17 Angel Crowe DPM [address] [address] Consulting Physician Podiatry 06/16/17 Mora Fritz Behavioral Health Navigator 06/15/18 Ok Jorge MD #[address] [address] Consulting Physician Endocrinology 05/12/22 Orlin Urbina, BOILER SHOP SUPERVISOR, CHEF PASSENGER VESSEL [address] [place] [address] Nurse Practitioner Advanced Practice Nurse 11/09/22 documented as of this encounter
--- OUTSIDE RECORDS SUMMARY | 2025-02-21 17:26 | XMS_ITS | Encounter Summary ---
Author Organization [facility] Address [address] [place] [address] Phone Care Team Providers Care Veterinary Physiologist Name Role Phone Oswaldo Serrano MD Primary Care Provider [phone] Angel Crowe DPCiara Unavailable [phone] Mora Fritz Unavailable Unavailable Ok Jorge MD Unavailable Orlin Urbina APRN, CARPENTER SUPERVISOR [employer] Unavailable [phone] Reason for Visit * Reason Comments Medication Refill Encounter Details Date Type Department Care Team (Late st Contact Info) Description 07/14/2022 Refill [facility] - [place] [address] [place] [address] Oswaldo Serrano MD #[address] [address] Medication Refill Social History Tobacco Use Types [...] Visit [facility] Medical [facility] - Endocrinology - [place] #2 [place] [address] Ok Jorge MD #[address] [address] 03/20/2025 2:30 PM CDT Office Visit [facility] Medical Group - Family Medicine - [place] [facility] [place] [address] Oswaldo Serrano MD #[address] [address] 07/30/2025 2:45 PM CDT Office Visit [facility] PHYSICIAN [facility] UROLOGY #2 [place] [address] Orlin Urbina, UNDRAPED ARTIST MODEL, CARPENTER SUPERVISOR [employer] #2 [place] [address] documented as of this encounter Visit Diagnoses Not on filedocumented in this encounter Additional Health Concerns Assessment Noted Time PHQ-9 Depression Total Score: 2 07/18/20 20 4:26 PM CDT documented as of this encounter Care Teams Veterinary Physiologist Relationship Specialty Start Date End Date Oswaldo Serrano MD #[address] [address] PCP - General Family Medicine 05/19/17 Angel Crowe DPM #[address] [address] Consulting Physician Podiatry 06/16/17 Mora Fritz [place] Behavioral Health Navigator 06/15/18 Ok Jorge MD #2 [facility] [address] [phone] Consulting Physician Endocrinology 05/12/22 Orlin Urbina APRN, YUDI #2 [place] [address] Nurse Practitioner Advanced Practice Nurse 11/09/22 documented as of this encounter
--- OUTSIDE RECORDS SUMMARY | 2025-02-21 17:26 | XMS_ITS | Clinical Summary ---
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, with long-term current use of insulin 05/30/2024 Hypothyroidism 05/30/2024 JOSE (obstructive sleep apnea) 05/30/2024 Diabetes mellitus with hyperglycemia 05/30/2024 Endocarditis 05/29/2024 Surgical History Surgery Date Site/Laterality Comments CARDIAC DEFIBRILLATOR PLACEMENT INSERT / REPLACE / REMOVE PACEMAKER CHOLECYSTECTOMY OTHER SURGICAL HISTORY 05/31/2024 CHANCE/CARDIOVERSION IR PICC LINE PLACEMENT > 5 YEARS 06/05/2024 N/A Medical History Medical History Date Comments CHF (congestive heart failure) (HCC) Diabetes mellitus (HCC) A-fib (HCC) Hypertension GERD (gastroesophageal reflux disease) Thyroid disease OAB (overactive bladder) Intellectual disability Sleep apnea Social History Tobacco Use Types Packs/Day Years Used Date Smoking Tobacco: Never Smokeless Tobacco: Never Tobacco Cessation:Counseling Given: No [facility] Utilities Answer Date Recorded In the past 12 months has [employer], gas, oil, or water [employer] threatened to shut off services in your [...] week 10/16/2024 How often do you attend [facility] or yarsani services? Never 10/16/2024 Do you belong to any clubs o r organizations such as oriental orthodox groups, unions, fraternal or athletic groups, or [...] time in the past 12 m [facility], were you homeless or living in a long term (including now)? No 10/16/2024 Personal Safety Answer Date Recorded Have you ever been in or are you currently in a harmful physical or emotional relationship or is someone making you feel afraid or unsafe? Denies 10/12/2024 Comments No Sex and Gender Information Value Date Recorded Sex Assigned at Not on file Legal Sex Female 3:51 AM ENDLESS TRACK VEHICLE MECHANIC Gender Identity Not on file Sexual Orientation Not on file Obstetrics History Last Filed Vital Signs Vital Sign Reading Time Taken Comments Blood Pressure 135/87 10/24/2024 7:35 AM ENDLESS TRACK VEHICLE MECHANIC Pulse 128 10/24/2024 9:46 AM ENDLESS TRACK VEHICLE MECHANIC Temperature 36.7 C (98.1 F) 10/24/2024 7:35 AM ENDLESS TRACK VEHICLE MECHANIC Respiratory Rate 18 10/24/2024 7:35 AM ENDLESS TRACK VEHICLE MECHANIC Oxygen Saturation 93% 10/24/2024 7:35 AM ENDLESS TRACK VEHICLE MECHANIC Inhaled Oxygen Concentration - - Weight 117.2 kg (258 lb 7.5 oz) 10/21/2024 4:45 AM ENDLESS TRACK VEHICLE MECHANIC Height 165.1 cm (5' 5 ) 10/12/2024 10:1 5 PM ENDLESS TRACK VEHICLE MECHANIC Body Mass Index 43.01 10/12/2024 10:15 PM ENDLESS TRACK VEHICLE MECHANIC Plan of Treatment Health Maintenance Due Date Last Done Comments Albumin Creatinine Ratio, Urine 1961 Cervical Cancer Screening 1961 Dilated Eye Exam 1961 Foot Exam 1961 Hepatitis B Screening 12/20/1979 Regular Well Visit/Exam 18-64 12/20/1979 Zoster Vaccine (1 of 2) 12/20/2011 Breast Cancer Screening-Mammogram 10/27/2022 022, 10/17/2018 Covid-19 Vaccine (3 - 2023-2 5 season) 2024 01/18/2021, 12/23/2020 Hemoglobin A1C 04/20/2025 10/21/2024, 06/11, 07/07/2024, Additional history exists Influenza Vaccine (Season Ended) 2025 08/26/2022, 07/18/2020, 06/22/2019, Additional history exists Depression Screening 07/03/2025 07/03/2024 Lipid Panel 07/10/2025 07/10/2024, 07/09/2024 eGFR 10/24/2025 10/24/2024, 10/10, 10/22/2024, Additional history exists Colon Cancer Screening-Colonoscopy 03/04/2027 03/04/2017 DTaP/Tdap/Td Vaccine (2 - Td or Tdap) 06/10/2034 06/10/2024 Colon Cancer Screening-CT Colonography Discontinued 03/04/2017 Colon Cancer Screening-DNA Stool Discontinued 03/04/20 Colon Cancer Screening-FIT Discontinued 03/04/2017 Colon Cancer Screening-Sigmoidoscopy Discontinued 03/04/2017 Pneumococcal vaccine <65 Completed 08/26/2022 Hepatitis C Screening Completed 10/12/2024 , 03/01/2017, 02/13/2017 Medical Devices Implanted Type Area Harvest Worker Device Identifier Shelf Expiration Date Model / Serial / Lot Biotronik Iperia 7 Drt-05/20/2017 Implanted:08/2017 by Jasper Mcfarland MD (Quantity not on file) ICD Chest Wall Biotronik [id number] / [id number] / Biotronik Rv Lead [id number]/11/2 017 Implanted:08/2017 (Quantity not on file) Lead Heart [id number] / [id number] / Biotronik Ra Lead [id number]/21/2 018 Implanted: (Quantity not on file) Lead Heart Biotronik [id number] / [id number] / Unknown Wire (~5cm Long) Other - see comments Chest Stent Stent Heart [facility] Mynxgrip 5fr Balloon Catheter Integrate Sealant Lock Latex Free [id number] - [id number] Implanted:Qty : 1 on 10/23/2024 by Sandro Hong MD at [facility] 07/17/2026 [id number] / / [id number] Procedures Procedure Name Priority Date/Time Associated Diagnosis Comments EGFR Routine 10/24/2024 3:15 AM ENDLESS TRACK VEHICLE MECHANIC HEMOGLOBIN A1C Routine 10/21/2024 10:04 PM ENDLESS TRACK VEHICLE MECHANIC HEPATITIS PANEL, ACUTE Routine 10/12/2024 7:04 PM ENDLESS TRACK VEHICLE MECHANIC LIPID PANEL Routine 07/10/2024 2:21 PM CDT COLONOSCOPY REPORT 03/04/2017 from Last 3 Months or Most Recently Relevant to Health Maintenance Results * eGFR (10/24/2024 3:15 AM ENDLESS TRACK VEHICLE MECHANIC) eGFR 72 >=60 mL/min/1. 73 m2 Comment: [...] last reviewed 2021. Blood 10/24/2024 3:15 AM ENDLESS TRACK VEHICLE MECHANIC 10/24/2024 3:57 AM ENDLESS TRACK VEHICLE MECHANIC Flakito Alejandra NP LAB BLOOD ORDERABLES Ayanna l Result Performing Organization Address [facility] Co de Phone Number [facility] [address] [place] [address] * (ABNORMAL) Hemoglobin A1c (10/21/2024 10:04 PM ENDLESS TRACK VEHICLE MECHANIC) Pathologist [facility] Hgb A1C 8.3(H) 4.0 - 5.6 % Estimated Average Glucose 192 mg/dL [facility] Comment: The ADA recommends reporting an estimated Average Glucose (eAG) with all Hemoglobin A1c results using the equation derived from a study of 507 normal and diabetic adults. Minority populations were underrepresented and children were not included. (Diabetes Care 31:3331-5411, 2008). The eAG is not equivalent to a fasting glucose. Blood 10/21/2024 10:0 4 PM ENDLESS TRACK VEHICLE MECHANIC 10/21/2024 10:10 PM ENDLESS TRACK VEHICLE MECHANIC Ranjit Trammell MD LAB BLOOD ORDERABLES Final R esult Performing Organization Address [facility] Co de Phone Number [facility] [address] [place] [address] * (ABNORMAL) Hepatitis panel, acute Blood (10/12/2024 7:04 PM ENDLESS TRACK VEHICLE MECHANIC) [facility] Hep A IgM Nonreactive Nonreactive Comment: Interpretive Data: If Hep A IgM Ab is reported as Equivocal, a new sample should be drawn in two weeks for testing. Current interpretive data was last revised on 19. Hep B core IgM Nonreactive Nonreactive [facility] Comment: Interpretive Data If HepB Core IgM Ab is reported as Equivocal, a new sample should be drawn in two weeks for testing. Current interpretive data was last revised on 19. Hep C Ab Reactive(A) Nonreactive [facility] Comment: Critical Result Critical Result called to and read back by Coleen Worrell, DATE: 2024-10-12 21:02:05 BY: Jennifer ohward Interpretive Data Nonreactive: Antibodies to HCV not [...] revised on 2019. HepBsAg Nonreactive Nonreactive [facility] Blood 10/12/2024 7:04 PM ENDLESS TRACK VEHICLE MECHANIC 10/12/2024 7:10 PM ENDLESS TRACK VEHICLE MECHANIC us Flakito Alejandra NP LAB MICROBIOLOGY - GENERA L ORDERABLES Final Result [facility] [address] [place] [address] * Lipid panel (07/10/2024 2:21 PM CDT) [...] 2018. Triglycerides See Comment <=149 mg/dL [facility] Comment: Credited; Hemolyzed Specimen Interpretive Data Ages [...] on 2018. HDL 49 >=40 mg/dL [facility] Comment: Interpretive Data Ages < [...] 2018. LDL, calculated See Comment <=129 [facility] Comment: Unable to calculate Interpretive Data Ages [...] last revised on 2018. Chol/HDL ratio 4 [facility] Blood 07/10/2024 2:21 PM CDT 07/10/2024 3:26 PM CDT us Elvira Cooper MD LAB BLOOD ORDERABLES Edit ed Result - Final [facility] [address] [place] [address] * COLONOSCOPY REPORT (03/04/2017) Anatomical Region Laterality Modality Other Narrative 03/04/2017 Ordered by an unspecified provider. us Historical Provider GI PROCEDURE ORDERABLES F inal Result from Last 3 Months or Most Recently Relevant to Health Maintenance Insurance MEDICARE [facility] Member Subscriber Plan / Payer (Ef fective 2024-Present) Name:Loretta Penn V Relation to Subscriber:Self Name:Loretta Penn V Payer ID:[id number] (NAIC) Group ID:Not on file Type:MEDICAID RISK OTHER Address: ATTN: CLAIMS DEPT [address] [place] [id number] [facility] Advance Directives For more information, please contact: [phone] * Full Code (Latest Code Status on File) Date Activated Date Inactivated Comments 10/12/2024 4:46 PM 10/24/2024 7:23 PM * Full Code Date Activated Date Inactivated Comments 07/07/2024 12:15 AM 08/02/2024 9:58 PM * Full Code Date Activated Date Inactivated Comments 06/11/2024 2:55 AM 06/21/2024 8:49 PM * Full Code Date Activated Date Inactivated Comments 05/29/2024 9:54 PM 06/09/2024 3:14 AM Care Teams Wad Blanking Press Adjuster Relationship Specialty Start Date End Date Oswaldo Serrano MD 2 [facility] [address] [place] [address] PCP - General Family Medicine 04/14/18 [place] [address] [address] Consulting Physician Cardiology 06/08/24 Sandro Hong MD [address] [place] [address] Referring Physician Cardiology 06/21/24
--- OUTSIDE RECORDS SUMMARY | 2025-02-21 17:26 | XMS_ITS | Encounter Summary ---
Author Organization [facility] Address [address] [place] [address] Phone Care Team Providers Care Drywall Mechanic Name Role Phone Oswaldo Serrano MD Primary Care Provider [phone] Angel Crowe DPCiara Unavailable [phone] Mora Fritz Unavailable Unavailable Ok Jorge MD Unavailable Orlin Urbina APRN, SUPERVISING LAW ENFORCEMENT ANALYST Unavailable [phone] Reason for Visit * Reason Comments Medication Refill Encounter Details Date Type Department Care Team (Late st Contact Info) Description 06/16/2022 Refill [facility] - [facility] Medicine - [place] #[address] [place] [address] Oswaldo Serrano MD #[address] [address] Medication Refill Social History Tobacco Use Types [...] Hearn 01/05/22 Office Visit Oswaldo Serrano MD [facility] Dhiraj Showing recent visits within past 182 [...] Description 02/28/2025 3:30 PM CDT Office Visit [facility] Medical [facility] - Endocrinology - [place] #[address] [facility] [place] [address] Ok Jorge MD #[address] [place] [address] 03/20/2025 2:30 PM CDT Office Visit [facility] Medical [facility] - Family Medicine - [place] #2 [place] [address] Oswaldo Serrano MD #[address] [place] [address] 07/30/2025 2:45 PM CDT Office Visit [facility] UROLOGY #2 [place] [address] Orlin Urbina, CELL EFFICIENCY SUPERVISOR, SUPERVISING LAW ENFORCEMENT ANALYST #2 [place] [address] documented as of this encounter Visit Diagnoses Not on filedocumented in this encounter Additional Health Concerns Assessment Noted Time PHQ-9 Depression Total Score: 2 07/18/20 20 4:26 PM CDT documented as of this encounter Care Teams Drywall Mechanic Relationship Specialty Start Date End Date Oswaldo Serrano MD #[address] [address] PCP - General Family Medicine 05/19/17 Angel Crowe DPM #[address] [address] Consulting Physician Podiatry 06/16/17 Mora Fritz Behavioral Health Navigator 06/15/18 Ok Jorge MD #[address] [address] Consulting Physician Endocrinology 05/12/22 Orlin Urbina APRN, SUPERVISING LAW ENFORCEMENT ANALYST #2 [place] [address] Nurse Practitioner Advanced Practice Nurse 11/09/22 documented as of this encounter
--- OUTSIDE RECORDS SUMMARY | 2025-02-21 17:26 | XMS_ITS | Encounter Summary ---
Author Organization [facility] Address [address] [place] [address] Phone Care Team Providers Care Cranberry Grower Name Role Phone Oswaldo Serrano MD Primary Care Provider [phone] Angel Crowe DPCiara Unavailable [phone] Mora Fritz Unavailable Unavailable Ok Jorge MD Unavailable Orlin Urbina APRN, SKI BASE TRIMMER Unavailable [phone] Reason for Visit * Reason Comments Medication Refill Encounter Details Date Type Department Care Team (Late st Contact Info) Description 06/03/2022 Refill [facility] - Family Medicine - [place] [address] [place] [address] Oswaldo Serrano MD #[address] [address] Medication Refill Social History Tobacco Use Types [...] Description 02/28/2025 3:30 PM CDT Office Visit [facility] - End[facility]inology - [place] #[facility] [place] [address] Ok Jorge MD #2 [facility] [address] [place] [address] 03/20/2025 2:30 PM CDT Office Visit [facility] [place] [facility] [place] [place] [address] Oswaldo Serrano MD #2 [facility] [address] [place] [address] 07/30/2025 2:45 PM CDT Office Visit [facility] [place] [facility] #2 [facility] [address] Orlin Urbina, SALES SUPPORT 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, SKI BASE TRIMMER #2 [place] [address] documented as of this encounter Visit Diagnoses Not on filedocumented in this encounter Additional Health Concerns Assessment Noted Time PHQ-9 Depression Total Score: 2 07/18/20 20 4:26 PM CDT documented as of this encounter Care Teams Cranberry Grower Relationship Specialty Start Date End Date Oswaldo Serrano MD #[address] [address] PCP - General Family Medicine 05/19/17 Angel Crowe DPM #[address] [address] Consulting Physician Podiatry 06/16/17 Mora Fritz [place] Behavioral Health Navigator 06/15/18 Ok Jorge MD #[address] [address] Consulting Physician Endocrinology 05/12/22 Orlin Urbina APRN, YUDI #[address] [place] [address] Nurse Practitioner Advanced Practice Nurse 11/09/22 documented as of this encounter
--- OUTSIDE RECORDS SUMMARY | 2025-02-21 17:26 | XMS_ITS | Encounter Summary ---
Author Organization [facility] Address [address] [place] [address] Phone Care Team Providers Care Recoverer Name Role Phone Oswaldo Serrano MD Primary Care Provider Angel Crowe DPM Unavailable [phone] Mora Fritz Unavailable Unavailable Ok Jorge MD Unavailable Orlin Urbina APRN, CNC SUPERVISOR Unavailable [phone] Reason for Visit * Reason Comments Medication Refill Encounter Details Date Type Department Care Team (Late st Contact Info) Description 01/21/2022 Refill [facility] - [facility] Medicine - [place] #2 [place] [address] Connor Yuan APRN, CNC SUPERVISOR #[address] [address] Medication Refill Social History Tobacco Use Types [...] 02/28/2025 3:30 PM CDT Office Visit [facility] Medical Group - Endocrinology - [place] #2 [place] [address] Ok Jorge MD #[address] [address] 03/20/2025 2:30 PM CDT Office Visit [facility] Medical Group - Family Medicine - [place] #2 [place] [address] Oswaldo Serrano MD #[address] [address] 07/30/2025 2:45 PM CDT Office Visit [facility]YS[facility]IAN GROUP UROLOGY #2 [place] [address] Orlin Urbina APRN, CNC SUPERVISOR #2 [place] [address] documented as of this encounter Visit Diagnoses Diagnosis Chronic congestive heart failure, unspecified heart failure type (HCC) documented in this encounter Additional Health Concerns Assessment Noted Time PHQ-9 Depression Total Score: 2 07/18/20 20 4:26 PM CDT documented as of this encounter Care Teams Recoverer Relationship Specialty Start Date End Date Oswaldo Serrano MD #2 [facility] [address] [place] [address] PCP - General Family Medicine 05/19/17 Angel Crowe DPM #2 [facility] [address] [place] [address] Consulting Physician Podiatry 06/16/17 Mora Fritz [place] Behavioral Health Navigator 06/15/18 Ok Jorge MD #2 [facility] [address] [place] [address] Consulting Physician Endocrinology 05/12/22 Orlin Urbina, THERMAL CUTTER HELPER, CNC SUPERVISOR #2 [place] [address] Nurse Practitioner Advanced Practice Nurse 11/09/22 documented as of this encounter
--- OUTSIDE RECORDS SUMMARY | 2025-02-21 17:26 | XMS_ITS | Encounter Summary ---
Author Organization [facility] Address [address] [place] [address] Phone Care Team Providers Care Spinning Frame Cleaner Name Role Phone Oswaldo Serrano MD Primary Care Provider [phone] Angel Crowe DPM Unavailable [phone] Mora Fritz Unavailable Unavailable Ok Jorge MD Unavailable Orlin Urbina APRN, GASKET SUPERVISOR Unavailable [phone] Reason for Visit * Reason Comments Medication Refill Encounter Details Date Type Department Care Team (Late st Contact Info) Description 07/31/2020 Refill [facility] - Family Medicine - [place] #2 [place] [address] Connor Yuan APRN, GASKET SUPERVISOR #[address] [address] Medication Refill Social History Tobacco Use Types [...] CDT VITAMIN D, 25 HYDROXY TOTAL Order: [id number] Status: Final result Â Â Visible to patient: Yes ([employer]) Dx: Vitamin D deficiency Ref Range & Units 3mo ago 2yr ago 3yr ago VITAMIN D, 25 HYDROX >=30 ng/mL 27Low 23Low 14Low Resulting Agency [facility] April 08, 2020 Â Â 7:17 AM Connro Yuan APN, GASKET SUPERVISOR routed this conversation to [facility] Nurse [place] Connor Yuan APN, YUDI Â 7:16 AM Note Please call patient POA and let her know that her vitamin D was low. Will send over 3 months worth of prescription therapy and then recheck. Orders entered. [employer] message sent to patient to have vitamin D re checked. Has active order. documented in this encounter Plan of Treatment Upcoming Encounters Date Type Department Care Team (Late st Contact Info) Description 02/28/2025 3:30 PM CDT Office Visit [facility] - Endocrinology - [place] #[address] [place] [address] Ok Jorge MD #[address] [address] 03/20/2025 2:30 PM CDT Office Visit [facility] - Family Medicine [facility] #2 [place] [address] Oswaldo Serrano MD #[address] [address] 07/30/2025 2:45 PM CDT Office Visit [facility] UROLOGY #2 [place] [address] Orlin Urbina APRN, GASKET SUPERVISOR #2 [place] [address] documented as of this encounter Visit Diagnoses Diagnosis Vitamin D deficiency Unspecified vitamin D deficiency documented in this encounter Additional Health Concerns Infection Onset Date Last Indicated Resolved Time COVID - 19 10/09/2020 10/09/2020 10/11/2020 5:17 AM ENGINEERING CLERK COVID - 19 11/12/2020 11/12/2020 11/16/2020 9:49 AM ENGINEERING CLERK COVID - 19 07/28/2021 07/29/2021 08/17/2021 12:1 6 AM ENGINEERING CLERK Assessment Noted Time PHQ-9 Depression Total Score: 2 07/18/20 4:26 PM CDT documented as of this encounter Care Teams Spinning Frame Cleaner Relationship Specialty Start Date End Date Oswaldo Serrano MD #[address] [address] PCP - General Family Medicine 05/19/17 Angel Crowe DPM #[address] [address] Consulting Physician Podiatry 06/16/17 Mora Fritz [place] Behavioral Health Navigator 06/15/18 Ok Jorge MD #[address] [address] Consulting Physician Endocrinology 05/12/22 Orlin Urbina APRN, GASKET SUPERVISOR #2 [place] [address] Nurse Practitioner Advanced Practice Nurse 11/09/22 documented as of this encounter
--- OUTSIDE RECORDS SUMMARY | 2025-02-21 17:26 | XMS_ITS | Encounter Summary ---
Author Organization [facility] Address [address] [place] [address] Phone Care Team Providers Care Log Driver Name Role Phone Oswaldo Serrano MD Primary Care Provider [phone] Angel Crowe DPCiara Unavailable [phone] Mora Fritz Unavailable Unavailable Ok Jorge MD Unavailable Orlin Urbina APRN, [employer] Unavailable [phone] Reason for Visit * Reason Comments Medication Refill Encounter Details Date Type Department Care Team (Late st Contact Info) Description 05/19/2022 Refill [facility] - [place] [address] [place] [address] Oswaldo Serrano MD [address] [address] Medication Refill Social History Tobacco Use Types [...] [facility] 07/28/21 Telemedicine Oswaldo Serrano MD [facility] Showing recent visits within past 365 [...] [facility] - Endocrinology - [place] [address] [place] [address] Ok Jorge MD #[address] [address] 03/20/2025 2:30 PM CDT Office Visit [facility] [place] [address] Oswaldo Serrano MD #[address] [address] 07/30/2025 2:45 PM CDT Office Visit [facility] [address] [place] [address] Orlin Urbina APRN, [employer] [address] [place] [address] documented as of this encounter Visit Diagnoses Not on filedocumented in this encounter Additional Health Concerns Assessment Noted Time PHQ-9 Depression Total Score: 2 07/18/20 20 4:26 PM CDT documented as of this encounter Care Teams Log Driver Relationship Specialty Start Date End Date Oswaldo Serrano MD #[address] [address] PCP - General Family Medicine 05/19/17 Angel Crowe DPM #[address] [address] Consulting Physician Podiatry 06/16/17 Mora Fritz [place] Behavioral Health Navigator 06/15/18 Ok Jorge MD #[address] [address] Consulting Physician Endocrinology 05/12/22 Orlin Urbina APRN, [employer] [address] [place] [address] Nurse Practitioner Advanced Practice Nurse 11/09/22 documented as of this encounter
[2025-02-21 18:11] LABS: Basophils Absolute Auto 0.1 K/mm3 (0.0-0.1); Basophils Percent Auto 1.3 % (0.2-1.2); Eosinophils Absolute Auto 0.1 K/mm3 (0-0.3); Eosinophils Percent Auto 3.1 % (0-4.4); Hematocrit 40.7 % (37.0-47.0); Immature Granulocyte Absolute 0.01 K/mm3 (0.00-0.031); Immature Granulocyte Percent A 0.3 % (0-0.5); Lymphocytes Absolute Auto 0.51 K/mm3 (0.9-3.2); Lymphocytes Percent Auto 13.4 % (18.3-44.2); Mean Corpuscular HGB Conc 31.9 g/dl (32-36); Mean Corpuscular Hemoglobin 30.5 pg (26-34); Mean Corpuscular Volume 95.5 fl (80-100); Mean Platelet Volume 9.4 fl (7.4-10.4); Monocytes Absolute Auto 0.6 K/mm3 (0.1-0.6); Monocytes Percent Auto 14.7 % (2.6-8.5); Neutrophils Absolute Auto 2.6 K/mm3 (1.3-6.7); Neutrophils Percent Auto 67.2 % (45.5-73.1); Platelet Count Result 243 k/mm3 (150-375); Red Blood Count 4.26 M/mm3 (4.2-5.4); Red Cell Distribution Width 18.7 % (11.5-14.5); White Blood Count 3.8 K/mm3 (4.5-10.0)
--- NOTE | 2025-02-21 18:15 | ED.WEAKNESS ---
HPI - Weakness General Chief complaint: Weakness <Argelia Pruett PA-C - Last Filed: 02/21/25 19:11> Stated complaint: swelling to abd and legs <Argelia Pruett PA-C - Last Filed: 02/21/25 19:11> Time Seen by Provider: 02/21/25 16:51 <Argelia Pruett PA-C - Last Filed: 02/21/25 19:11> History of Present Illness HPI Narrative: 64-year-old female with history of intellectual disability, AFib on Xarelto, MSSA bacteremia and endocarditis of the tricuspid valve in 05/2024, hypothyroidism, hypertension, CHF, GERD, diabetes presents to the emergency department via EMS from home for volume overload. Patient's sisters, Dilia and Marilee, who are also the patient's POAs are at bedside who assist with history. States the patient was discharged from [facility] in October and since then has been steadily gaining weight, they believed to be approximately 50 lb. Over the past several weeks the patient has become less mobile due to volume overload and has been having difficulty moving around. She lives at home and family checks on her several times a day. About 2-3 weeks ago her high school social science teacher with [facility], Dr. Flores, increased the patient's furosemide from 40 mg once daily to 40 mg twice daily. The patient has been taking this along with her prescribed spironolactone as directed without improvement. Patient's sister is at bedside also note that the patient has had decreased urine output over the past few days. On evaluation patient is reporting shortness of breath that is worse with exertion and orthopnea. She denies cough or congestion, fever. When prompted the patient does state that she has chest pain, however family at bedside states she has not been complaining of chest pain. The patient states her chest pain is worse when she gets nervous. Denies abdominal pain. The patient does have a history of AICD placement, however this was removed several months ago because the AICD became infected. On 05/30, she was found to have a dislodged catheter vs wire in the right pulmonary artery. CHANCE performed did not show tricuspid valve vegetation but the catheter vs wire in right pulmonary artery and left atrial appendage clot. The patient has been taking cefadroxil since. I discussed patient's code status with family at bedside. They are desiring her to be a full code. <Argelia Pruett PA-C - Last Filed: 02/21/25 19:11> Related Data Home medications: Home Medications Medication Instructions Recorded Confirmed Last Taken Type escitalopram oxalate 10 mg tablet 10 mg PO DAILY 06/27/20 02/22/25 Unknown History nortriptyline 10 mg capsule 10 mg PO HS 06/27/20 02/22/25 Unknown History omeprazole 20 mg capsule,delayed 20 mg PO DAILY 06/27/20 02/22/25 Unknown History release potassium chloride 20 mEq 20 meq PO DAILY 06/27/20 02/22/25 Unknown History tablet,extended release(part/cryst) rivaroxaban 20 mg tablet (Xarelto) 20 mg PO DAILY 06/27/20 02/22/25 Unknown History docusate sodium 100 mg capsule 100 mg PO BID 05/21/24 02/22/25 Unknown History insulin aspart U-100 100 unit/mL 10 unit subcut TIDWMEAL 05/21/24 02/22/25 Unknown History (3 mL) subcutaneous pen (Novolog FlexPen U-100 Insulin aspart) insulin glargine 100 unit/mL (3 15 unit subcut DAILY 05/21/24 02/22/25 Unknown History mL) subcutaneous pen (Basaglar KwikPen U-100 Insulin) levothyroxine 75 mcg tablet 75 mcg PO DAILY 05/21/24 02/22/25 Unknown History sacubitril 24 mg-valsartan 26 mg 1 tablet PO BID 05/21/24 06/29/24 Unknown History tablet (Entresto) vibegron 75 mg tablet (Gemtesa) 75 mg PO DAILY 05/21/24 06/29/24 Unknown History magnesium oxide 400 mg (241.3 mg 400 mg PO DAILY 06/29/24 02/22/25 Unknown History magnesium) tablet metoprolol succinate 50 mg 50 mg PO DAILY 06/29/24 02/22/25 Unknown History tablet,extended release 24 hr midodrine 5 mg tablet 2.5 mg PO Q12H PRN Hypotension 06/29/24 06/29/24 Unknown History <Argelia Pruett PA-C - Last Filed: 02/21/25 19:11> Allergies/Adverse reactions: Allergies Allergy/AdvReac Type Severity Reaction Status Date / Time Sulfa (Sulfonamide Allergy Mild RASH Verified 06/28/24 15:44 Antibiotics) <Argelia Pruett PA-C - Last Filed: 02/21/25 19:11> Review of Systems Review of Systems: All systems reviewed & are unremarkable except as noted in HPI and below <Argelia Pruett PA-C - Last Filed: 02/21/25 19:11> [facility] Past Medical History Medical History: Medical History Thrombocytopenia Bacteremia Overactive bladder GERD (gastroesophageal reflux disease) Atrial fibrillation Pacemaker Hypothyroidism HTN (hypertension) Diabetes <Argelia Pruett PA-C - Last Filed: 02/21/25 19:11> Surgical History Surgical History: Surgical History AICD (automatic cardioverter/defibrillator) present <Argelia Pruett PA-C - Last Filed: 02/21/25 19:11> Family History Family History: Family History Other Unknown family medical history <Argelia Pruett PA-C - Last Filed: 02/21/25 19:11> Social History Social History: Social History Smoking status: Former smoker Alcohol intake: never Substance use: current Substance use type: marijuana Do You Feel Safe in your Home?: Yes Lack of Transportation: No Lack of Food: Never True Current Housing: I Have Housing Concerned About Future Housing: No Difficulty Paying Gas/Electric Bills: No Difficulty Paying for Meds: No Currently Unemployed: No Education: Grade School Difficulty w/ Childcare or Family Care: No Gender identity (if verbalized by the patient): Female Spiritual care concerns: No <Argelia Pruett PA-C - Last Filed: 02/21/25 19:11> Exam Narrative: GENERAL: Chronically ill-appearing, anxious and tearful, morbidly obese HEAD: Normocephalic, atraumatic. EYES: PERRLA and EOMI. ENT: Nares clear, no rhinorrhea or epistaxis. Mucous membranes moist. NECK: Supple. CHEST: Clear to auscultation. No respiratory distress. HEART: Regular rate and rhythm. No murmur heard. Normal peripheral pulses. ABDOMEN: Soft, nontender, nondistended, normal active bowel sounds. Ecchymosis to the abdominal wall with no tenderness EXTREMITIES: Normal range of motion. Extensive edema to bilateral lower extremities SKIN: Warm, dry, no rash. NEURO: No focal deficits. Alert and oriented x3. Moving all extremities spontaneously <Argelia Pruett PA-C - Last Filed: 02/21/25 19:11> Course Course Emergency Course: POAs/Sisters: Dilia [phone], Marilee [phone] <Argelia Pruett PA-C - Last Filed: 02/21/25 19:11> [employer]ER/PA Physician Supervision Patient care assumed from previous provider. Patient is revaluated bedside and very agitated and belligerent. She has a history of mental retardation and traumatic brain injury. Patient's family members are trying to calm her down at bedside on successfully. Patient required 5 mg of IV Haldol for her agitation and to complete her workup here. Patient's blood pressures have been on the softer side in the 80s to 90s to low 100s region, she has anasarca with signs of cardiac decompensation on her x-ray and workup thus far with an elevated BNP and elevated delta troponin. Patient is pending a CTA of the chest abdomen pelvis for other potential causes of her hypotension. Patient had a recent hospitalization at [facility] per her community education specialist are. She had an infected AICD which was removed at that time and never followed up with. Family tells me that she was supposed to have a valve replacement which is also probably contributing to her signs of cardiac decompensation with CHF symptoms. Patient is given Bumex and albumin for oncodiuresis strategy given her soft blood pressures and need for removal. She has an MARK compared to her baseline likely congestive venous buildup rather than intravascular depletion and prerenal concern. Patient will ultimately need transfer to a higher level of care center and likely back to her specialist at [facility]. [facility] transfer system was contacted and made aware of the patient. Awaiting discussion with 13. Patient is going to CT scan at this time after adequate sedation. Patient CT scan shows no aneurysms or dissections, there is cardiomegaly with cardiac decompensation and right heart failure was with pulmonary hypertension consistent patient's clinical exam. She has bilateral pleural effusions more on the left side. Small pericardial effusion. No signs of tamponade. Patient remains on a b.i.d. Bumex as well as scheduled t.i.d. midodrine for herself blood pressures. She is hemodynamically stable at this time and pending transfer. [facility] transfer system has been contacted and they recommended transfer to [facility]. Spoke to Dr. Agrawal regarding patient's presentation and need for higher level of care with vascular/cardiology interventions for her valvular anomalies, hx infected hardware, and right-sided heart failure. Patient was accepted as a direct transfer to the cardiology floor and pending bed availability. She remains on wait list at this time. Family members were made aware of the plan and she will remain in the emergency department at this time until successful transfer. If patient has a prolonged ER course without any movement in bed availability we will limit the patient here for continued care including diuresis and blood pressure monitoring. Patient care signed over to oncoming ER physician Dr. Alberto at 7:00 a.m. <Jonah Freeman MD - Last Filed: 02/23/25 00:06> Vital Signs Vital signs: Vital Signs Temperature 36.5 C 02/21/25 16:39 Pulse Rate 84 02/21/25 16:39 Respiratory Rate 28 H 02/21/25 16:39 Blood Pressure 106/82 02/21/25 16:39 Pulse Oximetry 97 02/21/25 16:39 Oxygen Delivery Room Air 02/21/25 16:39 Temperature 36.6 C 02/22/25 08:15 Pulse Rate 95 02/22/25 21:09 Respiratory Rate 18 02/22/25 19:55 Blood Pressure 103/60 02/22/25 21:09 Pulse Oximetry 97 02/22/25 21:09 Oxygen Delivery Room Air 02/21/25 16:39 <Argelia Pruett PA-C - Last Filed: 02/21/25 19:11> Vital Signs Temperature 36.5 C 02/21/25 16:39 Pulse Rate 84 02/21/25 16:39 Respiratory Rate 28 H 02/21/25 16:39 Blood Pressure 106/82 02/21/25 16:39 Pulse Oximetry 97 02/21/25 16:39 Oxygen Delivery Room Air 02/21/25 16:39 Temperature 36.6 C 02/22/25 08:15 Pulse Rate 95 02/22/25 21:09 Respiratory Rate 18 02/22/25 19:55 Blood Pressure 103/60 02/22/25 21:09 Pulse Oximetry 97 02/22/25 21:09 Oxygen Delivery Room Air 02/21/25 16:39 <Jonah Freeman MD - Last Filed: 02/23/25 00:06> MDM - Weakness MDM Narrative Medical decision making narrative: 64-year-old female with extensive past medical history presents to the emergency department via EMS from home with family at bedside for volume overload. See HPI for further history. Triage vitals with tachypnea of 20. Patient is tearful and anxious appearing on exam. She does appear to be volume overloaded. She is satting 97% on room air otherwise in no respiratory distress. Presentation overall consistent with CHF exacerbation. The patient is endorsing chest pain when prompted, however family at bedside states she has not been complaining of chest pain. Patient did start to have a few soft blood pressures with maps around 65. She does have a history of hypotension and does take midodrine daily. A dose of midodrine was provided. Her lab work shows leukopenia of 3.8, normal hemoglobin and platelets. Chemistries with mild MARK with a creatinine 1.16 BUN of 34. She does have acute on chronic elevation of alk-phos at 438 which may be secondary to CHF exacerbation. Bilirubin chronically elevated to 4.4. Her BNP is elevated to 2870. Chest x-ray shows cardiomegaly with chronic compensation pulmonary edema. UA without UTI. EKG shows atrial fibrillation with a rate of 76 ppm, normal QRS duration, normal QTC, extensive artifact, no evidence of electrical alternans, no evidence of Patient ultimately needs to be diuresed, however unfortunately blood pressures remain soft. Remainder of vital signs are stable. She was found have low albumin at 3.1, will provide albumin and concurrently diuresis with 1 mg of Bumex. Given reported chest pain and hypotension, I did add on CTA chest abdomen pelvis to evaluate for the dissection vs cardiac tamponade vs other. Pending CTA at time of sign-out to Dr. Freeman. <Argelia Pruett PA-C - Last Filed: 02/21/25 19:11> Lab Data Result diagrams: 02/21/25 18:02 02/21/25 18:02 <Argelia Pruett PA-C - Last Filed: 02/21/25 19:11> Labs: Lab Results 02/21/25 02/21/25 02/21/25 Range/Units 18:02 19:40 20:29 WBC 3.8 L (4.5-10.0) K/mm3 RBC 4.26 (4.2-5.4) M/mm3 Hgb 13.0 (12.0-15.0) g/dL Hct 40.7 (37.0-47.0) % MCV 95.5 (80-100) fl MCH 30.5 (26-34) pg MCHC 31.9 L (32-36) g/dl RDW 18.7 H (11.5-14.5) % Plt Count 243 (150-375) k/mm3 MPV 9.4 (7.4-10.4) fl Immature Gran % (Auto) 0.3 (0-0.5) % Neut % (Auto) 67.2 (45.5-73.1) % Lymph % (Auto) 13.4 L (18.3-44.2) % [place] % (Auto) 14.7 H (2.6-8.5) % Eos % (Auto) 3.1 (0-4.4) % Baso % (Auto) 1.3 H (0.2-1.2) % Lymph # (Auto) 0.51 L (0.9-3.2) K/mm3 [place] # (Auto) 0.6 (0.1-0.6) K/mm3 Eos # (Auto) 0.1 (0-0.3) K/mm3 Baso # (Auto) 0.1 (0.0-0.1) K/mm3 Abs Immat Gran (auto) 0.01 (0.00-0.031) K/mm3 Absolute Neuts (auto) 2.6 (1.3-6.7) K/mm3 Absolute Nucleated RBC 0.000 (0.0-0.012) K/mm3 Nucleated RBC % 0.0 (0.0-0.2) % PT 37.6 H (11.1-14.7) Seconds INR 3.8 APTT 42.9 H (22.3-36.8) Seconds Sodium 131 L (137-145) mmol/L Potassium 4.5 (3.4-5.0) mmol/L Chloride 93 L (98-107) mmol/L Carbon Dioxide 29 (22-30) mmol/L Anion Gap 9 (4-12) mmol/L BUN 34 H D (7-17) mg/dL Creatinine 1.16 H (0.7-1.0) mg/dL Estim Creat Clear Calc 59 ml/min Estimated GFR 47 L (59 - ) Glucose 144 H (65-110) mg/dL POC Capillary Glucose (65-105) mg/dl Lactic Acid 2.4 H (0.7-2.0) mmol/L Calcium 8.6 (8.4-10.2) mg/dL Total Bilirubin 4.4 H (0.2-1.3) mg/dL AST 59 H (14-36) U/L ALT 34 (6-35) U/L Alkaline Phosphatase 438 H (38-126) U/L Troponin I < 0.012 0.014 (0.000-0.034) ng/mL NT-Pro-B Natriuret Pep 2870 H (19.9-100) pg/mL Total Protein 7.0 (6.3-8.2) g/dL Albumin 3.1 L (3.5-5.1) g/dL TSH (Reflex) 10.900 H (0.465-4.68) uIU/mL Free T4 2.23 H (0.78-2.19) ng/dL Urine Color Yellow (Yellow) Urine Appearance Clear (Clear) Urine pH 5.5 (5.0-9.0) Ur Specific [place] 1.014 (1.001-1.035) Urine Protein Negative (Negative) mg/dL Urine Glucose (UA) Negative (Negative) mg/dL Urine Ketones Negative (Negative) mg/dL Ur Blood (Man) Negative (Negative) Urine Nitrate Negative (Negative) Urine Bilirubin Negative (Negative) Urine Urobilinogen 1.0 (<2.0) mg/dL Leukocyte Esterase Rfl Negative (Negative) LETICIA/UL 02/21/25 02/21/25 02/22/25 Range/Units 22:17 23:15 06:29 WBC (4.5-10.0) K/mm3 RBC (4.2-5.4) M/mm3 Hgb (12.0-15.0) g/dL Hct (37.0-47.0) % MCV (80-100) fl MCH (26-34) pg MCHC (32-36) g/dl RDW (11.5-14.5) % Plt Count (150-375) k/mm3 MPV (7.4-10.4) fl Immature Gran % (Auto) (0-0.5) % Neut % (Auto) (45.5-73.1) % Lymph % (Auto) (18.3-44.2) % [place] % (Auto) (2.6-8.5) % Eos % (Auto) (0-4.4) % Baso % (Auto) (0.2-1.2) % Lymph # (Auto) (0.9-3.2) K/mm3 [place] # (Auto) (0.1-0.6) K/mm3 Eos # (Auto) (0-0.3) K/mm3 Baso # (Auto) (0.0-0.1) K/mm3 Abs Immat Gran (auto) (0.00-0.031) K/mm3 Absolute Neuts (auto) (1.3-6.7) K/mm3 Absolute Nucleated RBC (0.0-0.012) K/mm3 Nucleated RBC % (0.0-0.2) % PT (11.1-14.7) Seconds INR APTT (22.3-36.8) Seconds Sodium (137-145) mmol/L Potassium (3.4-5.0) mmol/L Chloride (98-107) mmol/L Carbon Dioxide (22-30) mmol/L Anion Gap (4-12) mmol/L BUN (7-17) mg/dL Creatinine (0.7-1.0) mg/dL Estim Creat Clear Calc ml/min Estimated GFR (59 - ) Glucose (65-110) mg/dL POC Capillary Glucose 88 (65-105) mg/dl Lactic Acid 2.0 (0.7-2.0) mmol/L Calcium (8.4-10.2) mg/dL Total Bilirubin (0.2-1.3) mg/dL AST (14-36) U/L ALT (6-35) U/L Alkaline Phosphatase (38-126) U/L Troponin I 0.018 D (0.000-0.034) ng/mL NT-Pro-B Natriuret Pep (19.9-100) pg/mL Total Protein (6.3-8.2) g/dL Albumin (3.5-5.1) g/dL TSH (Reflex) (0.465-4.68) uIU/mL Free T4 (0.78-2.19) ng/dL Urine Color (Yellow) Urine Appearance (Clear) Urine pH (5.0-9.0) Ur Specific [place] (1.001-1.035) Urine Protein (Negative) mg/dL Urine Glucose (UA) (Negative) mg/dL Urine Ketones (Negative) mg/dL Ur Blood (Man) (Negative) Urine Nitrate (Negative) Urine Bilirubin (Negative) Urine Urobilinogen (<2.0) mg/dL Leukocyte Esterase Rfl (Negative) LETICIA/UL 02/22/25 02/22/25 Range/Units 11:49 19:40 WBC (4.5-10.0) K/mm3 RBC (4.2-5.4) M/mm3 Hgb (12.0-15.0) g/dL Hct (37.0-47.0) % MCV (80-100) fl MCH (26-34) pg MCHC (32-36) g/dl RDW (11.5-14.5) % Plt Count (150-375) k/mm3 MPV (7.4-10.4) fl Immature Gran % (Auto) (0-0.5) % Neut % (Auto) (45.5-73.1) % Lymph % (Auto) (18.3-44.2) % [place] % (Auto) (2.6-8.5) % Eos % (Auto) (0-4.4) % Baso % (Auto) (0.2-1.2) % Lymph # (Auto) (0.9-3.2) K/mm3 [place] # (Auto) (0.1-0.6) K/mm3 Eos # (Auto) (0-0.3) K/mm3 Baso # (Auto) (0.0-0.1) K/mm3 Abs Immat Gran (auto) (0.00-0.031) K/mm3 Absolute Neuts (auto) (1.3-6.7) K/mm3 Absolute Nucleated RBC (0.0-0.012) K/mm3 Nucleated RBC % (0.0-0.2) % PT (11.1-14.7) Seconds INR APTT (22.3-36.8) Seconds Sodium (137-145) mmol/L Potassium (3.4-5.0) mmol/L Chloride (98-107) mmol/L Carbon Dioxide (22-30) mmol/L Anion Gap (4-12) mmol/L BUN (7-17) mg/dL Creatinine (0.7-1.0) mg/dL Estim Creat Clear Calc ml/min Estimated GFR (59 - ) Glucose (65-110) mg/dL POC Capillary Glucose 106 H 228 H (65-105) mg/dl Lactic Acid (0.7-2.0) mmol/L Calcium (8.4-10.2) mg/dL Total Bilirubin (0.2-1.3) mg/dL AST (14-36) U/L ALT (6-35) U/L Alkaline Phosphatase (38-126) U/L Troponin I (0.000-0.034) ng/mL NT-Pro-B Natriuret Pep (19.9-100) pg/mL Total Protein (6.3-8.2) g/dL Albumin (3.5-5.1) g/dL TSH (Reflex) (0.465-4.68) uIU/mL Free T4 (0.78-2.19) ng/dL Urine Color (Yellow) Urine Appearance (Clear) Urine pH (5.0-9.0) Ur Specific [place] (1.001-1.035) Urine Protein (Negative) mg/dL Urine Glucose (UA) (Negative) mg/dL Urine Ketones (Negative) mg/dL Ur Blood (Man) (Negative) Urine Nitrate (Negative) Urine Bilirubin (Negative) Urine Urobilinogen (<2.0) mg/dL Leukocyte Esterase Rfl (Negative) LETICIA/UL <Argelia Pruett PA-C - Last Filed: 02/21/25 19:11> Lab Results 02/21/25 02/21/25 02/21/25 Range/Units 18:02 19:40 20:29 WBC 3.8 L (4.5-10.0) K/mm3 RBC 4.26 (4.2-5.4) M/mm3 Hgb 13.0 (12.0-15.0) g/dL Hct 40.7 (37.0-47.0) % MCV 95.5 (80-100) fl MCH 30.5 (26-34) pg MCHC 31.9 L (32-36) g/dl RDW 18.7 H (11.5-14.5) % Plt Count 243 (150-375) k/mm3 MPV 9.4 (7.4-10.4) fl Immature Gran % (Auto) 0.3 (0-0.5) % Neut % (Auto) 67.2 (45.5-73.1) % Lymph % (Auto) 13.4 L (18.3-44.2) % [place] % (Auto) 14.7 H (2.6-8.5) % Eos % (Auto) 3.1 (0-4.4) % Baso % (Auto) 1.3 H (0.2-1.2) % Lymph # (Auto) 0.51 L (0.9-3.2) K/mm3 [place] # (Auto) 0.6 (0.1-0.6) K/mm3 Eos # (Auto) 0.1 (0-0.3) K/mm3 Baso # (Auto) 0.1 (0.0-0.1) K/mm3 Abs Immat Gran (auto) 0.01 (0.00-0.031) K/mm3 Absolute Neuts (auto) 2.6 (1.3-6.7) K/mm3 Absolute Nucleated RBC 0.000 (0.0-0.012) K/mm3 Nucleated RBC % 0.0 (0.0-0.2) % PT 37.6 H (11.1-14.7) Seconds INR 3.8 APTT 42.9 H (22.3-36.8) Seconds Sodium 131 L (137-145) mmol/L Potassium 4.5 (3.4-5.0) mmol/L Chloride 93 L (98-107) mmol/L Carbon Dioxide 29 (22-30) mmol/L Anion Gap 9 (4-12) mmol/L BUN 34 H D (7-17) mg/dL Creatinine 1.16 H (0.7-1.0) mg/dL Estim Creat Clear Calc 59 ml/min Estimated GFR 47 L (59 - ) Glucose 144 H (65-110) mg/dL POC Capillary Glucose (65-105) mg/dl Lactic Acid 2.4 H (0.7-2.0) mmol/L Calcium 8.6 (8.4-10.2) mg/dL Total Bilirubin 4.4 H (0.2-1.3) mg/dL AST 59 H (14-36) U/L ALT 34 (6-35) U/L Alkaline Phosphatase 438 H (38-126) U/L Troponin I < 0.012 0.014 (0.000-0.034) ng/mL NT-Pro-B Natriuret Pep 2870 H (19.9-100) pg/mL Total Protein 7.0 (6.3-8.2) g/dL Albumin 3.1 L (3.5-5.1) g/dL TSH (Reflex) 10.900 H (0.465-4.68) uIU/mL Free T4 2.23 H (0.78-2.19) ng/dL Urine Color Yellow (Yellow) Urine Appearance Clear (Clear) Urine pH 5.5 (5.0-9.0) Ur Specific [place] 1.014 (1.001-1.035) Urine Protein Negative (Negative) mg/dL Urine Glucose (UA) Negative (Negative) mg/dL Urine Ketones Negative (Negative) mg/dL Ur Blood (Man) Negative (Negative) Urine Nitrate Negative (Negative) Urine Bilirubin Negative (Negative) Urine Urobilinogen 1.0 (<2.0) mg/dL Leukocyte Esterase Rfl Negative (Negative) LETICIA/UL 02/21/25 02/21/25 02/22/25 Range/Units 22:17 23:15 06:29 WBC (4.5-10.0) K/mm3 RBC (4.2-5.4) M/mm3 Hgb (12.0-15.0) g/dL Hct (37.0-47.0) % MCV (80-100) fl MCH (26-34) pg MCHC (32-36) g/dl RDW (11.5-14.5) % Plt Count (150-375) k/mm3 MPV (7.4-10.4) fl Immature Gran % (Auto) (0-0.5) % Neut % (Auto) (45.5-73.1) % Lymph % (Auto) (18.3-44.2) % [place] % (Auto) (2.6-8.5) % Eos % (Auto) (0-4.4) % Baso % (Auto) (0.2-1.2) % Lymph # (Auto) (0.9-3.2) K/mm3 [place] # (Auto) (0.1-0.6) K/mm3 Eos # (Auto) (0-0.3) K/mm3 Baso # (Auto) (0.0-0.1) K/mm3 Abs Immat Gran (auto) (0.00-0.031) K/mm3 Absolute Neuts (auto) (1.3-6.7) K/mm3 Absolute Nucleated RBC (0.0-0.012) K/mm3 Nucleated RBC % (0.0-0.2) % PT (11.1-14.7) Seconds INR APTT (22.3-36.8) Seconds Sodium (137-145) mmol/L Potassium (3.4-5.0) mmol/L Chloride (98-107) mmol/L Carbon Dioxide (22-30) mmol/L Anion Gap (4-12) mmol/L BUN (7-17) mg/dL Creatinine (0.7-1.0) mg/dL Estim Creat Clear Calc ml/min Estimated GFR (59 - ) Glucose (65-110) mg/dL POC Capillary Glucose 88 (65-105) mg/dl Lactic Acid 2.0 (0.7-2.0) mmol/L Calcium (8.4-10.2) mg/dL Total Bilirubin (0.2-1.3) mg/dL AST (14-36) U/L ALT (6-35) U/L Alkaline Phosphatase (38-126) U/L Troponin I 0.018 D (0.000-0.034) ng/mL NT-Pro-B Natriuret Pep (19.9-100) pg/mL Total Protein (6.3-8.2) g/dL Albumin (3.5-5.1) g/dL TSH (Reflex) (0.465-4.68) uIU/mL Free T4 (0.78-2.19) ng/dL Urine Color (Yellow) Urine Appearance (Clear) Urine pH (5.0-9.0) Ur Specific [place] (1.001-1.035) Urine Protein (Negative) mg/dL Urine Glucose (UA) (Negative) mg/dL Urine Ketones (Negative) mg/dL Ur Blood (Man) (Negative) Urine Nitrate (Negative) Urine Bilirubin (Negative) Urine Urobilinogen (<2.0) mg/dL Leukocyte Esterase Rfl (Negative) LETICIA/UL 02/22/25 02/22/25 Range/Units 11:49 19:40 WBC (4.5-10.0) K/mm3 RBC (4.2-5.4) M/mm3 Hgb (12.0-15.0) g/dL Hct (37.0-47.0) % MCV (80-100) fl MCH (26-34) pg MCHC (32-36) g/dl RDW (11.5-14.5) % Plt Count (150-375) k/mm3 MPV (7.4-10.4) fl Immature Gran % (Auto) (0-0.5) % Neut % (Auto) (45.5-73.1) % Lymph % (Auto) (18.3-44.2) % [place] % (Auto) (2.6-8.5) % Eos % (Auto) (0-4.4) % Baso % (Auto) (0.2-1.2) % Lymph # (Auto) (0.9-3.2) K/mm3 [place] # (Auto) (0.1-0.6) K/mm3 Eos # (Auto) (0-0.3) K/mm3 Baso # (Auto) (0.0-0.1) K/mm3 Abs Immat Gran (auto) (0.00-0.031) K/mm3 Absolute Neuts (auto) (1.3-6.7) K/mm3 Absolute Nucleated RBC (0.0-0.012) K/mm3 Nucleated RBC % (0.0-0.2) % PT (11.1-14.7) Seconds INR APTT (22.3-36.8) Seconds Sodium (137-145) mmol/L Potassium (3.4-5.0) mmol/L Chloride (98-107) mmol/L Carbon Dioxide (22-30) mmol/L Anion Gap (4-12) mmol/L BUN (7-17) mg/dL Creatinine (0.7-1.0) mg/dL Estim Creat Clear Calc ml/min Estimated GFR (59 - ) Glucose (65-110) mg/dL POC Capillary Glucose 106 H 228 H (65-105) mg/dl Lactic Acid (0.7-2.0) mmol/L Calcium (8.4-10.2) mg/dL Total Bilirubin (0.2-1.3) mg/dL AST (14-36) U/L ALT (6-35) U/L Alkaline Phosphatase (38-126) U/L Troponin I (0.000-0.034) ng/mL NT-Pro-B Natriuret Pep (19.9-100) pg/mL Total Protein (6.3-8.2) g/dL Albumin (3.5-5.1) g/dL TSH (Reflex) (0.465-4.68) uIU/mL Free T4 (0.78-2.19) ng/dL Urine Color (Yellow) Urine Appearance (Clear) Urine pH (5.0-9.0) Ur Specific [place] (1.001-1.035) Urine Protein (Negative) mg/dL Urine Glucose (UA) (Negative) mg/dL Urine Ketones (Negative) mg/dL Ur Blood (Man) (Negative) Urine Nitrate (Negative) Urine Bilirubin (Negative) Urine Urobilinogen (<2.0) mg/dL Leukocyte Esterase Rfl (Negative) LETICIA/UL <Jonah Freeman MD - Last Filed: 02/23/25 00:06> Critical Care Time Critical Care Time Critical Care Time: Yes <Jonah Freeman MD - Last Filed: 02/23/25 00:06> Total Critical Care Time: 75 <Jonah Freeman MD - Last Filed: 02/23/25 00:06> Discharge Plan Discharge Clinical Impression: Acute exacerbation of CHF (congestive heart failure), Anasarca, History of bacterial endocarditis, Aicd lead infection, Right-sided heart failure, Pulmonary hypertension, Chronic hypotension <Argelia Pruett PA-C - Last Filed: 02/21/25 19:11> Patient Disposition: [facility] <Argelia Pruett PA-C - Last Filed: 02/21/25 19:11> Condition: Guarded Prognosis <AARON Brady Last Filed: 02/21/25 19:11> Patient Language: Uzbek <Argelia Pruett PA-C - Last Filed: 02/21/25 19:11> Prescriptions: No Action potassium chloride 20 mEq tablet,ER particles/crystals 20 meq PO DAILY nortriptyline 10 mg capsule 10 mg PO HS omeprazole 20 mg capsule,delayed release(DR/EC) 20 mg PO DAILY escitalopram oxalate 10 mg tablet 10 mg PO DAILY Xarelto 20 mg tablet 20 mg PO DAILY levothyroxine 75 mcg tablet 75 mcg PO DAILY docusate sodium 100 mg capsule 100 mg PO BID insulin aspart U-100 [Novolog FlexPen U-100 Insulin] 100 unit/mL (3 mL) insulin pen 10 unit SUBCUT TIDWMEAL Rx Instructions: sliding scale insulin glargine [Basaglar KwikPen U-100 Insulin] 100 unit/mL (3 mL) insulin pen 15 unit SUBCUT DAILY Entresto 24-26 mg tablet 1 tablet PO BID Gemtesa 75 mg tablet 75 mg PO DAILY metoprolol succinate 50 mg tablet extended release 24 hr 50 mg PO DAILY midodrine 5 mg tablet 2.5 mg PO Q12H PRN (Reason: Hypotension) magnesium oxide 400 mg (241.3 mg magnesium) tablet 400 mg PO DAILY <Argelia Pruett PA-C - Last Filed: 02/21/25 19:11> Follow-up/Referrals: Zach,Oswaldo Rodriguez MD [Primary Care Provider] - <Argelia Pruett PA-C - Last Filed: 02/21/25 19:11>
[2025-02-21 18:16] LABS: Add Urine Microscopic? NO; Appearance Urine Clear (Clear); Bilirubin Urine Negative (Negative); Blood Urine Negative (Negative); Color Urine Yellow (Yellow); Glucose Urine UA Negative (Negative); Ketones Urine Negative (Negative); Leukocyte Esterase Ur Negative LEU/UL (Negative); Nitrate Urine Negative (Negative); Protein Urine Negative (Negative); Specific Grav Ur 1.014 (1.001-1.035); pH Urine 5.5 (5.0-9.0)
[2025-02-21 18:22] LABS: INR 3.8; Prothrombin Time 37.6 Seconds (11.1-14.7)
[2025-02-21 18:23] LABS: Partial Thromboplastin Time 42.9 Seconds (22.3-36.8)
[2025-02-21 18:27] LABS: Alanine Aminotransferase 34 U/L (6-35); Albumin Level 3.1 g/dL (3.5-5.1); Alkaline Phosphatase 438 U/L (38-126); Anion Gap 9 mmol/L (4-12); Aspartate Amino Transferase 59 U/L (14-36); Bilirubin,Total 4.4 mg/dL (0.2-1.3); Blood Urea Nitrogen 34 mg/dL (7-17); Calcium 8.6 mg/dL (8.4-10.2); Carbon Dioxide 29 mmol/L (22-30); Chloride 93 mmol/L (98-107); Estimated CRCL calculation 59 ml/min; Estimated Glomerular Filt Rate 47; Glucose 144 mg/dL (65-110); Potassium 4.5 mmol/L (3.4-5.0); Sodium 131 mmol/L (137-145)
[2025-02-21 18:32] LABS: NT Pro B Type Natriuretic Pept 2870 pg/mL (19.9-100)
[2025-02-21 18:35] LABS: Troponin I < 0.012 ng/mL (0.000-0.034)
--- NOTE | 2025-02-21 19:28 | PC.NURSE ---
Pt refused IV insertion. MD Freeman notified and pt family states they will come talk to pt. MD Freeman verbally states we aren't going to force her to get an IV .
[2025-02-21] MEDS: BUMETANIDE INJ 1 MG/4 ML VIAL IV PUSH (19:49)
[2025-02-21] MEDS: MIDODRINE HCL 10 MG TABLET PO (19:49)
[2025-02-21] MEDS: ALBUMIN HUMAN 25% 25 GM/100 ML 200 ML IVPB (19:49)
[2025-02-21 20:00] LABS: Lactic Acid Reflex 2.4 mmol/L (0.7-2.0)
--- NOTE | 2025-02-21 20:11 | ECG_ITS ---
Test Date: 2025-02-21 20:43:55 Measurements Intervals [place] Rate: 81 P: 0 IA: 0 QRS: 137 QRSD: 117 T: -57 QT: 413 QTc: 481 Interpretive Statements ATRIAL FIBRILLATION POSSIBLE RIGHT VENTRICULAR HYPERTROPHY [SOME/ALL OF: PROMINENT R IN V1, LATE TRANSITION, RAD, JOSEPH, SSS] ANTEROLATERAL MYOCARDIAL INFARCTION , OF INDETERMINATE AGE [40+ ms Q WAVE IN I/aVL/V3-V6] ABNORMAL ECG Compared to ECG 02/21/2025 18:20:05 T-wave abnormality no longer present Myocardial infarct finding still present Electronically Signed On 02-22-2025 09:53:56 CDT by Adal Lou M.D.
[2025-02-21] MEDS: HALOPERIDOL LACTATE 5 MG/ML VIAL (20:59)
[2025-02-21 21:00] LABS: Troponin I 0.014 ng/mL (0.000-0.034)
--- NOTE | 2025-02-21 21:28 | PC.NURSE ---
RN and multiple techs are in pt room changing her linens and diaper. Pt starts getting agigtated throwing her hands and legs. MD Freeman at bedside and verbally states to give 5 of Haldol. RN adminstered 5 of Haldol via IV per MD Freeman.
--- NOTE | 2025-02-21 21:40 | PC.NURSE ---
patient was getting increasingly agitated with family members at bedside. discussed with family that it may be better for them to go, take some space and grab some food while she calms down
[2025-02-21 21:43] LABS: Reflex Lactic Acid Yes or No Add Lactic
--- NOTE | 2025-02-21 22:07 | PC.NURSE ---
RN spoke with Pat from [facility] transfer center and gave triage report on pt at this time. Pt is waiting on bed at [facility].
[2025-02-21 23:54] LABS: Troponin I 0.018 ng/mL (0.000-0.034)
[2025-02-22] VITALS (46 sets, daily range): BP systolic 76–156; BP diastolic 53–145; PULSE 75–100; RESP 12–24; TEMP 36.6; O2SAT 86–99
--- NOTE | 2025-02-22 | ECHO_ITS ---
Patient Info Name: Loretta Penn Age: 64 years : 1960 Gender: Female Ht: 64 in Wt: 281 lbs BSA: 2.48 m2 BP: 100 / 66 mmHg Heart Rhythm: Atrial Fibrillation Technical Quality: Good Exam Date: 02/22/2025 8:57 AM Patient Status: E Admit Date: 02/21/2025 Exam Type: CA echo limited Complete two-dimensional, color flow and Doppler transthoracic echocardiogram is performed. Staff Referring Physician: Argelia Pruett Supervisor Metalizing: Pamela Dean Attending Provider: Argelia Pruett Summary 1. Left ventricular chamber dimension is normal. 2. Left ventricular systolic function is mildly reduced, estimated at 40-45. 3. There is mildly increased left ventricular wall thickness. 4. Right ventricular systolic function is normal. 5. Left atrial chamber dimension is severely enlarged. 6. Right atrial chamber dimension is severely enlarged. 7. There is mild to moderate mitral valve regurgitation. 8. There is severe tricuspid valve regurgitation. 9. There is small pericardial effusion. Left Ventricle Left ventricular chamber dimension is normal. Left ventricular systolic function is mildly reduced, estimated at 40-45. There is mildly increased left ventricular wall thickness. Right Ventricle Right ventricular chamber dimension is normal. Right ventricular systolic function is normal. Left Atria Left atrial chamber dimension is severely enlarged. Right Atria Right atrial chamber dimension is severely enlarged. Atrial Septum Intact interatrial septum visualized by color flow imaging. Aortic Valve The aortic valve is not well visualized. Pulmonic Valve The pulmonic valve is not well visualized. Mitral Valve The mitral valve has thickened leaflets. There is mild to moderate mitral valve regurgitation. Tricuspid Valve There is severe tricuspid valve regurgitation. Pericardium/Pleural There is small pericardial effusion. Inferior Vena Cava Normal inferior vena cava with <50% collapse upon inspiration consistent with elevated right atrial pressure, 8 mmHg. Aorta The aortic root size at the sinus of Valsalva is normal. Pulmonic Valve Name Value Normal RVOT Doppler RVOT Peak Velocity 55 cm/s RVOT Peak Gradient 1 mmHg PV Doppler PV Peak Velocity 68 cm/s PV Peak Gradient 2 mmHg Tricuspid Valve Name Value Normal TV Regurgitation Doppler TR Peak Velocity 182 cm/s TR Peak Gradient 13 mmHg Estimated PAP/RSVP RA Pressure 8 mmHg <=5 PA Systolic Pressure 21 mmHg <36 RV Systolic Pressure 21 mmHg <36 Ventricles Name Value Normal LV Dimensions 2D/MM IVS Diastolic Thickness (2D) 0.9 cm 0.6-1.0 LVID Diastole (2D) 5.6 cm 3.8-5.2 LVIW Diastolic Thickness (2D) 1.1 cm 0.6-0.9 LVID Systole (2D) 4.3 cm 2.2-3.5 LV Mass (2D Cubed) 211.34 g 67.00-162.00 LV Mass Index (2D Cubed) 85 g/m2 43-95 Relative Wall Thickness (2D) 0.39 <=0.42 LV Fractional Shortening/Ejection Fraction 2D/MM LV Fractional Shortening (2D) 22 % 27-45 LV EF (2D Teichholz) 44 % LV Diastolic Volume (4C MOD) 150 ml LV EF (4C MOD) 50 % LV Diastolic Volume (2C MOD) 154 ml LV EF (2C MOD) 62 % LV Diastolic Volume (BP MOD) 152 ml 46-106 LV Diastolic Volume Index (BP MOD) 62 ml/m2 29-61 LV Systolic Volume (BP MOD) 72 ml 14-42 LV Systolic Volume Index (BP MOD) 29 ml/m2 8-24 LV EF (BP MOD) 53 % 54-74 LV Diastolic Length (4C) 8.0 cm LV Systolic Length (4C) 7.1 cm LV Stroke Volume (4C MOD) 75 ml Atria Name Value Normal LA Dimensions LA Volume (4C A-L) 135 ml LA Volume (BP A-L) 124 ml RA Dimensions RA Systolic Major Banning Length (4C) 6.6 cm 2.2-2.8 RA Area (4C) 30.0 cm2 <=18.0 Report Signatures
[2025-02-22 05:43] LABS: Free T4 Free Thyroxine Reflex 2.23 ng/dL (0.78-2.19)
[2025-02-22 06:30] LABS: Glucose Point of Care 88 mg/dl (65-105)
--- NOTE | 2025-02-22 06:32 | PC.NURSE ---
Rn checked pt glucose at this time. Pt glucose was 88. Rn offered pt a meal and drink at this time.
--- NOTE | 2025-02-22 08:41 | PC.NURSE ---
Attempted to wake pt who is sleeping comfortably at this time, pt does not wish to be awake at this time, declining breakfast.
[2025-02-22] MEDS: BUMETANIDE INJ 1 MG/4 ML VIAL IV PUSH ×2 (09:20→18:57)
--- NOTE | 2025-02-22 09:45 | PC.NURSE ---
[place] with [facility] transfer center called for updated triage information on pt. States she will call when bed is available.
--- NOTE | 2025-02-22 09:52 | PC.NURSE ---
Pt linen saturated in urine, purewick repositioned to be in proper place from being initiated overnight. Purewick assessed, linen changed, breakfast tray ordered. Pt awake at this time, requesting breakfast.
[2025-02-22] MEDS: MIDODRINE HCL 10 MG TABLET PO (13:34)
--- NOTE | 2025-02-22 13:44 | PC.NURSE ---
Lunch tray ordered at this time.
[2025-02-22] MEDS: ACETAMINOPHEN 500 MG TABLET 1000 MG PO (14:51)
--- NOTE | 2025-02-22 17:53 | PC.NURSE ---
Pharmacy called for missing midodrine, will be tubed to ED.
[2025-02-22 18:56] LABS: Glucose Point of Care 106 mg/dl (65-105)
[2025-02-22 19:42] LABS: Glucose Point of Care 228 mg/dl (65-105)
--- NOTE | 2025-02-22 21:38 | PC.NURSE ---
Per [facility], patient till on wait list for cardiology admission. No update. Home novolog ordered. Patient resting on bed, pure wick in place. Remains on full monitor. BP soft, will hold metoprolol and midodrine ATT. Discussed possible admission here due to wait time.
[2025-02-23] VITALS (21 sets, daily range): BP systolic 94–153; BP diastolic 57–98; PULSE 62–115; RESP 14–28; TEMP 36.1–37.2; O2SAT 93–98; BMI 52.4
--- NOTE | 2025-02-23 00:07 | P.PNED_ITS ---
Subjective Date/time seen: 02/23/25 00:07 Interval history: Patient bored here in the emergency department pending transfer to [facility] unit for right-sided heart failure, heart failure exacerbation, on midodrine 10 mg t.i.d., Bumex 1 mg b.i.d.. Patient doing well today without any new complaints. Home medications ordered and started including insulin. Review of Systems Review of Systems ROS unobtainable: Yes unobtainable due to medical condition and unobtainable due to mental status Exam Narrative GENERAL: Anasarca, largely morbidly obese, not any acute distress HEAD: [Normocephalic, atraumatic.] EYES: [PERRLA and EOMI.] ENT: Nares clear, no rhinorrhea or epistaxis. Mucous membranes moist. NECK: Supple. CHEST: [Clear to auscultation. No respiratory distress.] HEART: [Regular rate and rhythm]. No murmur heard. [Normal peripheral pulses.] ABDOMEN: [Soft, nondistended], [nontender], [No rigidity or guarding] EXTREMITIES: Normal range of motion. 2+ pitting edema throughout the extremities SKIN: Warm, dry, no rash. NEURO: [No focal deficits]. Alert and oriented [x3.] PSYCH: [Normal mood and affect.] Objective Data Vital Signs Vital Signs: Vital Signs - 24 hr 02/22/25 00:16 02/22/25 00:27 02/22/25 00:32 Temperature Pulse Rate 75 75 88 Respiratory Rate 15 15 15 Blood Pressure 91/62 L 94/69 L 94/69 L Pulse Oximetry 95 98 98 02/22/25 00:46 02/22/25 01:30 02/22/25 01:47 Temperature Pulse Rate 80 86 76 Respiratory Rate 16 19 24 H Blood Pressure 76/64 L 88/76 L 115/53 L Pulse Oximetry 97 98 96 02/22/25 02:31 02/22/25 03:01 02/22/25 03:16 Temperature Pulse Rate 84 76 81 Respiratory Rate 23 H 15 14 Blood Pressure 82/58 L 108/57 L 94/75 L Pulse Oximetry 96 97 98 02/22/25 03:30 02/22/25 04:18 02/22/25 04:31 Temperature Pulse Rate 81 79 89 Respiratory Rate 20 18 23 H Blood Pressure 136/67 106/71 93/61 L Pulse Oximetry 98 98 96 02/22/25 04:46 02/22/25 05:00 02/22/25 05:16 Temperature Pulse Rate 84 86 79 Respiratory Rate 19 19 21 H Blood Pressure 89/72 L 97/80 L 101/58 L Pulse Oximetry 99 98 96 02/22/25 05:30 02/22/25 05:46 02/22/25 06:01 Temperature Pulse Rate 82 87 91 Respiratory Rate 21 H 21 H 17 Blood Pressure 92/63 L 156/145 H 116/72 Pulse Oximetry 98 96 86 L 02/22/25 06:16 02/22/25 06:30 02/22/25 06:46 Temperature Pulse Rate 75 85 83 Respiratory Rate 19 12 12 Blood Pressure 99/64 L 97/68 L 100/66 Pulse Oximetry 87 L 94 96 02/22/25 07:02 02/22/25 07:45 02/22/25 08:00 Temperature Pulse Rate 85 87 84 Respiratory Rate 19 21 H 20 Blood Pressure 105/64 99/54 L 108/86 Pulse Oximetry 94 94 02/22/25 08:15 02/22/25 08:15 02/22/25 08:31 Temperature 36.6 C Pulse Rate 80 85 83 Respiratory Rate 18 20 15 Blood Pressure 108/86 115/53 L Pulse Oximetry 95 97 90 02/22/25 09:00 02/22/25 09:30 02/22/25 09:51 Temperature Pulse Rate 79 84 93 Respiratory Rate 13 19 17 Blood Pressure 106/75 115/93 H Pulse Oximetry 96 95 98 02/22/25 10:15 02/22/25 10:46 02/22/25 11:01 Temperature Pulse Rate 96 100 99 Respiratory Rate 23 H 21 H 22 H Blood Pressure 98/68 L 104/72 Pulse Oximetry 97 99 95 02/22/25 11:16 02/22/25 11:31 02/22/25 11:46 Temperature Pulse Rate 97 99 92 Respiratory Rate 21 H 22 H 18 Blood Pressure 106/72 111/78 112/70 Pulse Oximetry 95 96 96 02/22/25 11:47 02/22/25 12:31 02/22/25 13:15 Temperature Pulse Rate 75 96 95 Respiratory Rate 18 19 13 Blood Pressure 107/72 Pulse Oximetry 98 97 94 02/22/25 13:31 02/22/25 13:40 02/22/25 14:31 Temperature Pulse Rate 93 97 83 Respiratory Rate 22 H 20 20 Blood Pressure 98/62 L 98/62 L 99/59 L Pulse Oximetry 95 95 97 02/22/25 14:51 02/22/25 15:01 02/22/25 17:00 Temperature Pulse Rate 96 96 93 Respiratory Rate 20 17 18 Blood Pressure 99/59 L 90/63 L 117/74 Pulse Oximetry 96 02/22/25 19:55 02/22/25 21:09 Temperature Pulse Rate 94 95 Respiratory Rate 18 Blood Pressure 101/84 103/60 Pulse Oximetry 99 97 Intake/Output Intake/Output: Intake & Output 02/20/25 02/21/25 02/22/25 02/23/25 23:59 23:59 23:59 23:59 Intake Total 200 Output Total 500 Balance -300 Meds/Results Medications: Active Medications Generic Name Dose Route Start Last Admin Trade Name Freq PRN Reason Stop Dose Admin Bumetanide 1 mg 02/22/25 09:00 02/22/25 18:57 Bumetanide Inj 1 Mg/4 Ml Vial IV PUSH 1 mg BID [facility] Administration Docusate Sodium 100 mg 02/22/25 21:00 Docusate Sodium 100 Mg Capsule PO Q12HR [facility] Escitalopram Oxalate 10 mg 02/23/25 09:00 Escitalopram Oxalate 10 Mg Tablet PO DAILY [facility] Insulin Aspart 10 units 02/23/25 08:00 Insulin Aspart (*Bkc) 100 Units/Ml SUB-Q TIDWM GALINA Levothyroxine Sodium 75 mcg 02/23/25 06:30 Levothyroxine Sodium 75 Mcg Tablet PO DAILY@0630 G[facility] Midodrine 10 mg 02/22/25 09:00 02/22/25 13:34 Midodrine Hcl 10 Mg Tablet PO 10 mg TID GALINA Administration Midodrine 2.5 mg 02/23/25 09:00 Midodrine Hcl 2.5 Mg Tablet PO BID G[facility]INA Miscellaneous Information 0 each 02/22/25 00:01 Midodrine Duplicate With 10mg Order??? D/C One XX 03/24/25 00:00 CLARIFY [facility] Miscellaneous Information 0 each 02/22/25 00:01 02/22/25 21:48 Sliding Scale??? Not On Med Record Please Pick One From Hospital Protocol XX 03/24/25 00:00 Not Given CLARIFY [facility] Nortriptyline HCl 10 mg 02/22/25 21:00 Nortriptyline Hcl 10 Mg Capsule PO HS [facility] Pantoprazole Sodium 20 mg 02/23/25 09:00 Pantoprazole Sod Sesquihydrate 20 Mg Tab PO QAM [facility] Perflutren Lipid Microsphere 0 ml 02/21/25 23:34 Perflutren Lipid Microspheres 1.5 Ml Vial Diluted To 10 Ml Total Volume IV PUSH 02/24/25 23:34 ONCE PRN adequate visualization Protocol Rivaroxaban 20 mg 02/23/25 17:00 Rivaroxaban 20 Mg Tablet PO DAILY@1700 [facility] Radiology Results: ITS Impressions Chest X-Ray 02/21/25 18:02 IMPRESSION: Cardiomegaly with cardiac decompensation and pulmonary edema. Left basilar atelectasis versus pneumonia with pleural effusion. Follow-up to resolution advised Chest/Abdomen/Pelvis CTA 02/21/25 22:56 IMPRESSION: CHEST: 1. No aneurysmal dilatation or dissection seen in the aorta. 2. Cardiomegaly with pericardial effusion and right-sided failure. 3. Pulmonary hypertension 4. Bilateral pleural effusion more on the left side with adjacent atelectasis versus pneumonia. ABDOMEN/PELVIS: 1. No aneurysmal dilatation of dissection. 2. Fat infiltration of the liver. 3. Minimal fluid in the left paracolic gutter and around the spleen. 4. Constipation. 5. Edematous subcutaneous tissues suggestive of October volume lobe. 6. Atrophic pancreas. Labs Labs: Laboratory Results - last 24 hr 02/21/25 02/22/25 02/22/25 19:40 06:29 11:49 POC Capillary Glucose 88 106 H Free T4 2.23 H 02/22/25 19:40 POC Capillary Glucose 228 H Free T4 Progress Note: A&P Assessment and Plan (1) Acute exacerbation of CHF (congestive heart failure): Code(s): I50.9 - Heart failure, unspecified Status: Acute (2) Right-sided heart failure: Code(s): I50.810 - Right heart failure, unspecified Status: Acute Plan Patient pending transfer to [facility] for direct admission from the emergency department. Patient is on Bumex and midodrine. Doing well, no hypoxia or significant blood pressure concerns. Discussed with the hospitalist currently being covered by the midlevel provider Emi for admission here pending transfer. Patient was accepted to the IMU. Cardiology was spoken to and made aware patient's presentation and will evaluate her on inpatient basis.
[2025-02-23 00:16] LABS: Glucose Point of Care 231 mg/dl (65-105)
[2025-02-23] MEDS: LEVOTHYROXINE SODIUM 75 MCG TABLET PO (06:45)
[2025-02-23 07:38] LABS: Glucose Point of Care 158 mg/dl (65-105)
[2025-02-23] MEDS: BUMETANIDE INJ 1 MG/4 ML VIAL IV PUSH ×2 (08:22→16:04)
[2025-02-23] MEDS: DOCUSATE SODIUM 100 MG CAPSULE PO (08:23)
[2025-02-23] MEDS: ESCITALOPRAM OXALATE 10 MG TABLET PO (08:23)
[2025-02-23] MEDS: MIDODRINE HCL 10 MG TABLET PO ×2 (08:23→14:00)
--- NOTE | 2025-02-23 08:40 | P.HP_ITS ---
H&P: HPI History of Present Illness Date/Time: 02/23/25 08:40 Chief Complaint: Shortness of breath Narrative: 64-year-old female with history of intellectual disability, AFib on Xarelto, MSSA bacteremia and endocarditis of the tricuspid valve in 05/2024, hypothyroidism, hypertension, CHF, GERD, diabetes presents to the emergency department via EMS from home for volume overload. The patient was discharged from [facility] in October and since then has been steadily gaining weight, they believed to be approximately 50 lb. Over the past several weeks the patient has become less mobile due to volume overload and has been having difficulty moving around. She lives at home and family checks on her several times a day. About 2-3 weeks ago her sticker on with [facility], Dr. Flores, increased the patient's furosemide from 40 mg once daily to 40 mg twice daily. The patient has been taking this along with her prescribed spironolactone as directed without improvement. Patient also reported decreased urine output over past few days. Patient reports progressive shortness of breath that is worse with exertion and orthopnea. She denies cough or congestion, fever. She reports no chest pain. No abdominal pain nausea vomiting. Patient also has history of AICD infection and hence was removed. She has been on cefadroxil since then. On Arrival to the ED she was agitated and belligerent requiring pharmacological treatment. Blood pressure was borderline with signs of anasarca cardiac decompensation on her chest x-ray. Chest x-ray showed cardiomegaly with chronic compensation pulmonary edema. Laboratory workup showed WBC of 3.8 hemoglobin 13 platelet 243 lactic acid of 2.4. Chem panel with creatinine of 1.16 BUN of 34 alk phosphatase chronically elevated at 438 bilirubin elevated at 4.4 BNP at 2870. UA negative for UTI. TSH slightly high at 10.9 with stay-0.014-0.018. She was also planned to have a valve replacement. She received IV Bumex. She also noted to [facility] CT chest abdomen pelvis showed no aneurysm or dissections cardiomegaly cardiac decompensation and right heart failure with pulmonary hypertension. Bilateral pleural effusions more left side small pericardial effusion no signs abdominal not. She has been planned to be transferred to [facility] with accepted the patient however bed availability is pending. Echo performed in the ER showed EF of 40-45% awri-to-poviplih MR severe tricuspid regurgitation small pericardial effusion. Review of Systems Review of Systems: - CONSTITUTIONAL: Denies weight loss, fe vish and chills. Reports weight gain - HEENT: Denies changes in vision and he aring - RESPIRATORY: Reports SOB and denies c ough. - CV: Denies palpitations and CP. - GI: Denies abdominal pain, nausea, vom iting and diarrhea. - : Denies dysuria and urinary frequen cy. - MSK: Denies myalgia and joint pain. - SKIN: Denies rash and pruritus. - NEUROLOGICAL: Denies headache and sync ope. - PSYCHIATRIC: Denies recent changes in mood. Denies anxiety and depression. [facility] Past Medical History Medical History Thrombocytopenia Bacteremia Overactive bladder GERD (gastroesophageal reflux disease) Atrial fibrillation Pacemaker Hypothyroidism HTN (hypertension) Diabetes Surgical History Surgical History AICD (automatic cardioverter/defibrillator) present Family History Family History Mother Diabetes mellitus Epilepsy CAD (coronary artery disease) Stented coronary artery Dementia COVID Father Diabetes mellitus Sibling Hypertension Sibling Murder of sister Sibling Unknown family medical history Social History Social History Years smoked: 3 Smoking status: Former smoker Tobacco type: cigarettes Alcohol intake: never Substance use: never Substance use type: does not use Do You Feel Safe in your Home?: Yes Lack of Transportation: No Lack of Food: Never True Current Housing: I Have Housing Concerned About Future Housing: No Difficulty Paying Gas/Electric Bills: No Difficulty Paying for Meds: No Currently Unemployed: No Education: Grade School Difficulty w/ Childcare or Family Care: No Gender identity (if verbalized by the patient): Female Spiritual care concerns: No Meds Home Medications and Allergies Home Medications Medication Instructions Recorded Confirmed Type escitalopram oxalate 10 mg tablet 10 mg PO DAILY 06/27/20 02/22/25 History nortriptyline 10 mg capsule 10 mg PO HS 06/27/20 02/22/25 History omeprazole 20 mg capsule,delayed 20 mg PO DAILY 06/27/20 02/22/25 History release potassium chloride 20 mEq 20 meq PO DAILY 06/27/20 02/22/25 History tablet,extended release(part/cryst) rivaroxaban 20 mg tablet (Xarelto) 20 mg PO DAILY 06/27/20 02/22/25 History docusate sodium 100 mg capsule 100 mg PO BID 05/21/24 02/22/25 History insulin aspart U-100 100 unit/mL 10 unit subcut TIDWMEAL 05/21/24 02/22/25 History (3 mL) subcutaneous pen (Novolog FlexPen U-100 Insulin aspart) insulin glargine 100 unit/mL (3 15 unit subcut QAM 05/21/24 02/23/25 History mL) subcutaneous pen (Basaglar KwikPen U-100 Insulin) levothyroxine 75 mcg tablet 75 mcg PO QAM 05/21/24 02/23/25 History vibegron 75 mg tablet (Gemtesa) 75 mg PO DAILY 05/21/24 02/23/25 History magnesium oxide 400 mg (241.3 mg 400 mg PO DAILY 06/29/24 02/22/25 History magnesium) tablet metoprolol succinate 50 mg 100 mg PO DAILY 06/29/24 02/23/25 History tablet,extended release 24 hr acetaminophen 500 mg capsule 500 mg PO Q6H PRN pain (scale 02/23/25 02/23/25 History score 1-3) or fever. albuterol sulfate 90 mcg/actuation 2 puff inhalation Q6H PRN 02/23/25 02/23/25 History aerosol inhaler shortness of breath or wheezing cefadroxil 500 mg capsule 1,000 mg PO Q12H 02/23/25 02/23/25 History cholecalciferol (vitamin D3) 125 5,000 unit PO DAILY 02/23/25 02/23/25 History mcg (5,000 unit) tablet diphenhydramine HCl 2 % topical 1 applic topical Q6H PRN itching 02/23/25 02/23/25 History gel (Anti-Itch (diphenhydramine)) ferrous sulfate 325 mg (65 mg 325 mg PO DAILY 02/23/25 02/23/25 History iron) tablet (FeroSul) fluticasone propionate 50 1 spray intranasal DAILY PRN 02/23/25 02/23/25 History mcg/actuation nasal allergy symptoms/Rhinitis. spray,suspension (Flonase Allergy Relief) furosemide 40 mg tablet 40 mg PO BID 02/23/25 02/23/25 History hydroxyzine HCl 25 mg tablet 25 mg PO Q4H PRN itching or 02/23/25 02/23/25 History anxiety. lidocaine 4 % topical cream 1 applic topical DAILY 02/23/25 02/23/25 History (AsperFlex (lidocaine)) lidocaine 4 % topical patch 1 patch topical DAILY PRN back 02/23/25 02/23/25 History (Aspercreme (lidocaine)) pain. magnesium oxide 400 mg (241.3 mg 400 mg PO DAILY 02/23/25 02/23/25 History magnesium) tablet multivitamin-iron 9 mg-folic acid 1 tablet PO DAILY 02/23/25 02/23/25 History 400 mcg-calcium and minerals tablet (Thera-M) polyethylene glycol 3350 17 gram 17 g PO DAILY PRN constipation 02/23/25 02/23/25 History oral powder packet (Miralax) spironolactone 25 mg tablet 12.5 mg PO DAILY 02/23/25 02/23/25 History Allergies Allergy/AdvReac Type Severity Reaction Status Date / Time Sulfa (Sulfonamide Allergy Mild RASH Verified 02/23/25 05:04 Antibiotics) certain metals Allergy Unknown Unknown Uncoded 02/23/25 05:04 Vital Signs Vital Signs - 24 hr 02/22/25 09:00 02/22/25 09:30 02/22/25 09:51 Temperature Pulse Rate 79 84 93 Respiratory Rate 13 19 17 Blood Pressure 106/75 115/93 H Pulse Oximetry 96 95 98 Oxygen Delivery 02/22/25 10:15 02/22/25 10:46 02/22/25 11:01 Temperature Pulse Rate 96 100 99 Respiratory Rate 23 H 21 H 22 H Blood Pressure 98/68 L 104/72 Pulse Oximetry 97 99 95 Oxygen Delivery 02/22/25 11:16 02/22/25 11:31 02/22/25 11:46 Temperature Pulse Rate 97 99 92 Respiratory Rate 21 H 22 H 18 Blood Pressure 106/72 111/78 112/70 Pulse Oximetry 95 96 96 Oxygen Delivery 02/22/25 11:47 02/22/25 12:31 02/22/25 13:15 Temperature Pulse Rate 75 96 95 Respiratory Rate 18 19 13 Blood Pressure 107/72 Pulse Oximetry 98 97 94 Oxygen Delivery 02/22/25 13:31 02/22/25 13:40 02/22/25 14:31 Temperature Pulse Rate 93 97 83 Respiratory Rate 22 H 20 20 Blood Pressure 98/62 L 98/62 L 99/59 L Pulse Oximetry 95 95 97 Oxygen Delivery 02/22/25 14:51 02/22/25 15:01 02/22/25 17:00 Temperature Pulse Rate 96 96 93 Respiratory Rate 20 17 18 Blood Pressure 99/59 L 90/63 L 117/74 Pulse Oximetry 96 Oxygen Delivery 02/22/25 19:55 02/22/25 21:09 02/23/25 00:26 Temperature Pulse Rate 94 95 100 Respiratory Rate 18 20 Blood Pressure 101/84 103/60 97/77 L Pulse Oximetry 99 97 98 Oxygen Delivery 02/23/25 00:45 02/23/25 01:18 02/23/25 01:22 Temperature Pulse Rate 105 H 62 88 Respiratory Rate 14 14 Blood Pressure 107/75 Pulse Oximetry 98 94 Oxygen Delivery Room Air 02/23/25 02:00 02/23/25 02:26 02/23/25 03:38 Temperature 97.8 F 97.8 F Pulse Rate 99 88 69 Respiratory Rate 14 14 Blood Pressure 102/64 94/63 L Pulse Oximetry 94 93 Oxygen Delivery 02/23/25 04:00 02/23/25 04:33 02/23/25 05:33 Temperature Pulse Rate 104 H 69 101 H Respiratory Rate 14 Blood Pressure Pulse Oximetry 93 Oxygen Delivery Room Air 02/23/25 07:38 Temperature 97.0 F L Pulse Rate 108 H Respiratory Rate 28 H Blood Pressure 107/57 L Pulse Oximetry 94 Oxygen Delivery Exam Narrative: GENERAL: Chronically ill-appearing, morbidly obese not in acute distress with morbid obesity HEAD: Normocephalic, atraumatic. EYES: PERRLA and EOMI. ENT: Nares clear, no rhinorrhea or epistaxis. Mucous membranes moist. NECK: Supple. CHEST: Clear to auscultation. No respiratory distress. HEART: Regular rate and rhythm. No murmur heard. Normal peripheral pulses. ABDOMEN: Soft, nontender, nondistended, normal active bowel sounds. Ecchymosis to the abdominal wall with no tenderness EXTREMITIES: Normal range of motion. Extensive edema to bilateral lower extremities SKIN: Warm, dry, no rash. NEURO: No focal deficits. Alert and oriented x3. Moving all extremities spontaneously Assessment and Plan Assessment and plan (1) Acute exacerbation of CHF (congestive heart failure): Code(s): I50.9 - Heart failure, unspecified Status: Acute (2) Pulmonary hypertension: Code(s): I27.20 - Pulmonary hypertension, unspecified Status: Acute (3) History of bacterial endocarditis: Code(s): Z86.79 - Personal history of other diseases of the circulatory system Status: Acute (4) AICD (automatic cardioverter/defibrillator) present: Code(s): Z95.810 - Presence of automatic (implantable) cardiac defibrillator Status: Acute (5) Atrial fibrillation: Code(s): I48.91 - Unspecified atrial fibrillation Status: Chronic (6) HTN (hypertension): Code(s): I10 - Essential (primary) hypertension Status: Chronic (7) GERD (gastroesophageal reflux disease): Code(s): K21.9 - Gastro-esophageal reflux disease without esophagitis Status: Chronic (8) Hypothyroidism: Code(s): E03.9 - Hypothyroidism, unspecified Status: Chronic (9) Diabetes: Code(s): E11.9 - Type 2 diabetes mellitus without complications Status: Acute Plan 64-year-old female with history of intellectual disability, AFib on Xarelto, MSSA bacteremia and endocarditis of the tricuspid valve in 05/2024, hypothyroidism, hypertension, CHF, GERD, diabetes presents to the emergency department via EMS from home for volume overload. The patient was discharged from [facility] in October and since then has been steadily gaining weight, they believed to be approximately 50 lb. Over the past several weeks the patient has become less mobile due to volume overload and has been having difficulty moving around. She lives at home and family checks on her several times a day. About 2-3 weeks ago her sticker on with [facility], Dr. Flores, increased the patient's furosemide from 40 mg once daily to 40 mg twice daily. The patient has been taking this along with her prescribed spironolactone as directed without improvement. Patient also reported decreased urine output over past few days. Patient reports progressive shortness of breath that is worse with exertion and orthopnea. She denies cough or congestion, fever. She reports no chest pain. No abdominal pain nausea vomiting. Patient also has history of AICD infection and hence was removed. She has been on cefadroxil since then. On Arrival to the ED she was agitated and belligerent requiring pharmacological treatment. Blood pressure was borderline with signs of anasarca cardiac decompensation on her chest x-ray. Chest x-ray showed cardiomegaly with chronic compensation pulmonary edema. Laboratory workup showed WBC of 3.8 hemoglobin 13 platelet 243 lactic acid of 2.4. Chem panel with creatinine of 1.16 BUN of 34 alk phosphatase chronically elevated at 438 bilirubin elevated at 4.4 BNP at 2870. UA negative for UTI. TSH slightly high at 10.9 with stay-0.014-0.018. She was also planned to have a valve replacement. She received IV Bumex. She also noted to [facility] CT chest abdomen pelvis showed no aneurysm or dissections cardiomegaly cardiac decompensation and right heart failure with pulmonary hypertension. Bilateral pleural effusions more left side small pericardial effusion no signs of tamponade. She has been planned to be transferred to [facility] with accepted the patient however bed availability is pending. Echo performed in the ER showed EF of 40-45% [id number] MR severe tricuspid regurgitation small pericardial effusion. History of MSSA bacteremia and endocarditis of the tricuspid valve 05/2024 completed treatment however back with persistent back pain on June [address] findings of possible osteomyelitis and recurrence of MSSA bacteremia. On 05/30/2024 she was found to have dislodged catheter versus white in the right pulmonary artery. Gt performed did not show tricuspid valve revealed vegetation but the catheter versus wire in right pulmonary artery and left appt atrial appendage clot. Was started on anticoagulation. Readmission for VFib and ICD placement on 06/2024. Atrial fibrillation on chronic anticoagulation with Xarelto Acute on chronic systolic diastolic congestive heart failure Multiple lung nodules noted on CT chest 06/2024. Largest in right upper lobe measuring 1.[address] chest this admission with no nodules noted previously. GERD Hypothyroidism Type 2 diabetes Hiatal hernia DVT prophylaxis on Xarelto Code status full code Hospitalist [facility] Advance Care Plan I have confirmed that the patient's Advanced Care Plan is present, code status is documented, or surrogate decision maker is listed in patient medical record.: Yes Medication Reconciliation I have utilized all available resources to obtain, update and review the patients current medications (includes all prescriptions, OTC, herbals, cannabis, and nutritional supplements).: Yes
[2025-02-23 09:34] LABS: Basophils Absolute Auto 0.1 K/mm3 (0.0-0.1); Eosinophils Absolute Auto 0.1 K/mm3 (0-0.3); Eosinophils Percent Auto 1.4 % (0-4.4); Hemoglobin 13.8 g/dL (12.0-15.0); Immature Granulocyte Absolute 0.02 K/mm3 (0.00-0.031); Immature Granulocyte Percent A 0.4 % (0-0.5); Lymphocytes Absolute Auto 0.61 K/mm3 (0.9-3.2); Lymphocytes Percent Auto 11.8 % (18.3-44.2); Mean Corpuscular HGB Conc 32.1 g/dl (32-36); Mean Corpuscular Hemoglobin 30.9 pg (26-34); Mean Corpuscular Volume 96.2 fl (80-100); Mean Platelet Volume 9.6 fl (7.4-10.4); Monocytes Absolute Auto 0.7 K/mm3 (0.1-0.6); Monocytes Percent Auto 12.8 % (2.6-8.5); Neutrophils Absolute Auto 3.7 K/mm3 (1.3-6.7); Neutrophils Percent Auto 72.6 % (45.5-73.1); Platelet Count Result 246 k/mm3 (150-375); Red Blood Count 4.47 M/mm3 (4.2-5.4); Red Cell Distribution Width 19.3 % (11.5-14.5); White Blood Count 5.2 K/mm3 (4.5-10.0)
[2025-02-23] MEDS: THERAPEUTIC MULTIVITAMINS/MINERALS TAB (*BKC) 1 TABLET PO (09:34)
[2025-02-23] MEDS: METOPROLOL SUCCINATE EXT REL 100 MG TABCR PO (09:34)
[2025-02-23] MEDS: hydrOXYzine HCL 25 MG TABLET PO (09:34)
[2025-02-23] MEDS: CHOLECALCIFEROL 5,000 UNITS TABLET 5000 UNITS PO (09:34)
[2025-02-23] MEDS: MAGNESIUM OXIDE 400 MG TABLET PO (09:35)
[2025-02-23] MEDS: POTASSIUM CHLORIDE 20 MEQ ER TABLET PO (09:35)
[2025-02-23] MEDS: SPIRONOLACTONE 12.5 MG TABLET PO (09:35)
[2025-02-23] MEDS: FERROUS SULFATE 325 MG TABLET DR PO (09:36)
[2025-02-23] MEDS: ACETAMINOPHEN 500 MG TABLET PO ×2 (09:36→16:05)
[2025-02-23] MEDS: PANTOPRAZOLE SOD SESQUIHYDRATE 20 MG TAB PO (09:38)
[2025-02-23] MEDS: INSULIN GLARGINE (*BKC) 100 UNITS/ML 15 UNITS SUB-Q (09:41)
[2025-02-23 09:44] LABS: Alanine Aminotransferase 33 U/L (6-35); Albumin Level 3.6 g/dL (3.5-5.1); Alkaline Phosphatase 347 U/L (38-126); Anion Gap 10 mmol/L (4-12); Aspartate Amino Transferase 58 U/L (14-36); Bilirubin,Total 6.4 mg/dL (0.2-1.3); Blood Urea Nitrogen 33 mg/dL (7-17); Calcium 8.9 mg/dL (8.4-10.2); Carbon Dioxide 26 mmol/L (22-30); Chloride 93 mmol/L (98-107); Estimated CRCL calculation 60 ml/min; Estimated Glomerular Filt Rate 42; Glucose 228 mg/dL (65-110); Magnesium 1.9 mg/dL (1.6-2.3); Sodium 129 mmol/L (137-145)
[2025-02-23 11:10] LABS: Glucose Point of Care 221 mg/dl (65-105)
[2025-02-23] MEDS: INSULIN ASPART (*BKC) 100 UNITS/ML 10 UNITS SUB-Q ×2 (11:53→16:10)
--- NOTE | 2025-02-23 14:18 | PC.NURSE ---
spoke with [facility] about bringing up home meds gemtesa and antibiotic, they will bring them at some time today and ask that the meds be sent to [facility] with the pt when she is transferred
--- NOTE | 2025-02-23 15:44 | P.CONCA_ITS ---
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 (4) Right-sided heart failure: Code(s): I50.810 - Right heart failure, unspecified Status: Acute Assessment and Plan: Acute exacerbation. Continue IV Bumex 1 mg IV Q 12 hours. Creatinine did increase a little bit today and will need to follow renal panel. Awaiting transfer to [place]. Continue metoprolol and spironolactone (5) Acute exacerbation of CHF (congestive heart failure): Code(s): I50.9 - Heart failure, unspecified Status: Acute Assessment and Plan: Predominately right-sided (6) HTN (hypertension): Code(s): I10 - Essential (primary) hypertension Status: Chronic Assessment and Plan: Controlled at present History of Present Illness History of Present Illness Consult date/time: 02/23/25 15:44 Requesting physician: Jonah Freeman MD Consult reason: congestive heart failure Reason For Visit: Heart failure, Right-sided heart failure, Anasarca Narrative: Reason for consultation: Heart failure, anasarca Date of service 02/23/2025 Requesting provider: Dr. Freeman History: Patient is 64-year-old female who has a history of nonischemic cardiomyopathy. She has a history of infected pacemaker ICD that was removed in July 2004. Catheterization was performed and October of 2024. Life Vest not recommended at that time but there was plans for revaluation for ICD. She has severe tricuspid regurgitation history of MSSA tricuspid valve endocarditis status post explantation of her ICD. She was deemed not to be a candidate for CT surgery. She also has chronic atrial fibrillation on chronic anticoagulation, intellectual disability due to traumatic brain injury. She presented to the hospital and is awaiting transfer to [place]. She has been accepted. She has had progressively more volume overload and difficulty moving around and has been less mobile. Her furosemide had been increased by Dr. Flores from 40 mg p.o. daily to 0.40 mg twice daily. There was progressively more short of breath though as well as orthopnea and came to hospital for further workup and evaluation. She was started on IV Bumex. Echocardiogram showed ejection fraction 40-45% with [id number] mitral regurgitation is severe tricuspid regurgitation with small pericardial effusion. CT scan showed evidence of cardiac decompensation and right heart failure with pulmonary hypertension with bilateral pleural effusions. She still short of breath at rest but denies chest pain, recent syncope, presyncope, palpitations. Review of Systems 2 Review of Systems: All systems reviewed & are unremarkable except as noted in HPI and below Constitutional: Constitutional: Denies body ache(s) Eyes: Eyes: Denies blurry vision ENT: Reports Normal hearing present Cardiovascular: Cardiovascular: Denies chest pain and Reports leg edema Respiratory: Respiratory: Reports dyspnea and Reports dyspnea on exertion Gastrointestinal: Gastrointestinal: Denies abdominal pain Genitourinary: Genitourinary: Denies hematuria Musculoskeletal: Musculoskeletal: Denies arthralgias Integumentary/Breasts: Skin/Breast: Denies dry skin Neurologic: Denies headache(s) Psychiatric: Psychiatric: Denies anxiety Endocrine: Endocrine: Denies excessive sweating Hematologic/Lymphatic: Hematologic/Lymphatic: Denies easy bleeding Allergic/Immunologic: Allergic/Immunologic: Denies GI upset with certain foods PMFSH Past Medical History Medical History Thrombocytopenia Bacteremia Overactive bladder GERD (gastroesophageal reflux disease) Atrial fibrillation Pacemaker Hypothyroidism HTN (hypertension) Diabetes Surgical History Surgical History AICD (automatic cardioverter/defibrillator) present Family History Family History Mother Diabetes mellitus Epilepsy CAD (coronary artery disease) Stented coronary artery Dementia COVID Father Diabetes mellitus Sibling Hypertension Sibling Murder of sister Sibling Unknown family medical history Social History Social History Years smoked: 3 Smoking status: Former smoker Tobacco type: cigarettes Alcohol intake: never Substance use: never Substance use type: does not use Do You Feel Safe in your Home?: Yes Lack of Transportation: No Lack of Food: Never True Current Housing: I Have Housing Concerned About Future Housing: No Difficulty Paying Gas/Electric Bills: No Difficulty Paying for Meds: No Currently Unemployed: No Education: Grade School Difficulty w/ Childcare or Family Care: No Gender identity (if verbalized by the patient): Female Spiritual care concerns: No Meds Home Medications and Allergies Home Medications Medication Instructions Recorded Confirmed Type escitalopram oxalate 10 mg tablet 10 mg PO DAILY 06/27/20 02/22/25 History nortriptyline 10 mg capsule 10 mg PO HS 06/27/20 02/22/25 History omeprazole 20 mg capsule,delayed 20 mg PO DAILY 06/27/20 02/22/25 History release potassium chloride 20 mEq 20 meq PO DAILY 06/27/20 02/22/25 History tablet,extended release(part/cryst) rivaroxaban 20 mg tablet (Xarelto) 20 mg PO DAILY 06/27/20 02/22/25 History docusate sodium 100 mg capsule 100 mg PO BID 05/21/24 02/22/25 History insulin aspart U-100 100 unit/mL 10 unit subcut TIDWMEAL 05/21/24 02/22/25 History (3 mL) subcutaneous pen (Novolog FlexPen U-100 Insulin aspart) insulin glargine 100 unit/mL (3 15 unit subcut QAM 05/21/24 02/23/25 History mL) subcutaneous pen (Basaglar KwikPen U-100 Insulin) levothyroxine 75 mcg tablet 75 mcg PO QAM 05/21/24 02/23/25 History vibegron 75 mg tablet (Gemtesa) 75 mg PO DAILY 05/21/24 02/23/25 History magnesium oxide 400 mg (241.3 mg 400 mg PO DAILY 06/29/24 02/22/25 History magnesium) tablet metoprolol succinate 50 mg 100 mg PO DAILY 06/29/24 02/23/25 History tablet,extended release 24 hr acetaminophen 500 mg capsule 500 mg PO Q6H PRN pain (scale 02/23/25 02/23/25 History score 1-3) or fever. albuterol sulfate 90 mcg/actuation 2 puff inhalation Q6H PRN 02/23/25 02/23/25 History aerosol inhaler shortness of breath or wheezing cefadroxil 500 mg capsule 1,000 mg PO Q12H 02/23/25 02/23/25 History cholecalciferol (vitamin D3) 125 5,000 unit PO DAILY 02/23/25 02/23/25 History mcg (5,000 unit) tablet diphenhydramine HCl 2 % topical 1 applic topical Q6H PRN itching 02/23/25 02/23/25 History gel (Anti-Itch (diphenhydramine)) ferrous sulfate 325 mg (65 mg 325 mg PO DAILY 02/23/25 02/23/25 History iron) tablet (FeroSul) fluticasone propionate 50 1 spray intranasal DAILY PRN 02/23/25 02/23/25 History mcg/actuation nasal allergy symptoms/Rhinitis. spray,suspension (Flonase Allergy Relief) furosemide 40 mg tablet 40 mg PO BID 02/23/25 02/23/25 History hydroxyzine HCl 25 mg tablet 25 mg PO Q4H PRN itching or 02/23/25 02/23/25 History anxiety. lidocaine 4 % topical cream 1 applic topical DAILY 02/23/25 02/23/25 History (AsperFlex (lidocaine)) lidocaine 4 % topical patch 1 patch topical DAILY PRN back 02/23/25 02/23/25 History (Aspercreme (lidocaine)) pain. magnesium oxide 400 mg (241.3 mg 400 mg PO DAILY 02/23/25 02/23/25 History magnesium) tablet multivitamin-iron 9 mg-folic acid 1 tablet PO DAILY 02/23/25 02/23/25 History 400 mcg-calcium and minerals tablet (Thera-M) polyethylene glycol 3350 17 gram 17 g PO DAILY PRN constipation 02/23/25 02/23/25 History oral powder packet (Miralax) spironolactone 25 mg tablet 12.5 mg PO DAILY 02/23/25 02/23/25 History Allergies Allergy/AdvReac Type Severity Reaction Status Date / Time Sulfa (Sulfonamide Allergy Mild RASH Verified 02/23/25 05:04 Antibiotics) certain metals Allergy Unknown Unknown Uncoded 02/23/25 05:04 Vital Signs Vital Signs - 24 hr 02/22/25 17:00 02/22/25 19:55 02/22/25 21:09 Temperature Pulse Rate 93 94 95 Respiratory Rate 18 18 Blood Pressure 117/74 101/84 103/60 Pulse Oximetry 96 99 97 Oxygen Delivery 02/23/25 00:26 02/23/25 00:45 02/23/25 01:18 Temperature Pulse Rate 100 105 H 62 Respiratory Rate 20 14 Blood Pressure 97/77 L 107/75 Pulse Oximetry 98 98 Oxygen Delivery 02/23/25 01:22 02/23/25 02:00 02/23/25 02:26 Temperature 36.6 C Pulse Rate 88 99 88 Respiratory Rate 14 14 Blood Pressure 102/64 Pulse Oximetry 94 94 Oxygen Delivery Room Air 02/23/25 03:38 02/23/25 04:00 02/23/25 04:33 Temperature 36.6 C Pulse Rate 69 104 H 69 Respiratory Rate 14 14 Blood Pressure 94/63 L Pulse Oximetry 93 93 Oxygen Delivery Room Air 02/23/25 05:33 02/23/25 07:38 02/23/25 08:00 Temperature 36.1 C L Pulse Rate 101 H 108 H 109 H Respiratory Rate 28 H Blood Pressure 107/57 L Pulse Oximetry 94 Oxygen Delivery 02/23/25 09:34 02/23/25 10:00 02/23/25 11:43 Temperature 37.2 C Pulse Rate 115 H 113 H 112 H Respiratory Rate 24 H Blood Pressure 139/82 Pulse Oximetry 94 Oxygen Delivery 02/23/25 12:00 02/23/25 14:00 02/23/25 15:23 Temperature 36.4 C L Pulse Rate 115 H 108 H 103 H Respiratory Rate 24 H Blood Pressure 118/91 H Pulse Oximetry 95 Oxygen Delivery Exam 2 Narrative: Awake alert. Appears stated age Const: General: comfortable and no acute distress HENMT: Ears: TM's normal bilaterally Face/Nose/Sinus: Normal nares present Eyes: Sclera: sclerae normal Neck: Neck: supple and no JVD Chest: Other: No reproducible chest pain to palpation Resp: Effort & Inspection: normal respiratory effort Auscultation: d iminished lung sounds Cardio: Rate: regular rate Rhythm: abnormal rhythm irregularly irregular Heart sounds: Murmur heart sound present Other: Distant heart tones GI: Inspection: non-distended GI Palp: Yes Soft to palpation Skin: General skin exam: normal color Other: Bruisability Neuro: Speech: normal speech Sensory Exam: normal sensation Extrem: General: edema Psych: Mental Status: mental status grossly normal Results Labs and Meds 02/23/25 09:21 02/23/25 09:21 Lab results: Cardiac Enzymes 02/23/25 Range/Units 09:21 AST 58 H (14-36) U/L CBC 02/23/25 Range/Units 09:21 WBC 5.2 (4.5-10.0) K/mm3 RBC 4.47 (4.2-5.4) M/mm3 Hgb 13.8 (12.0-15.0) g/dL Hct 43.0 (37.0-47.0) % Plt Count 246 (150-375) k/mm3 Lymph # (Auto) 0.61 L (0.9-3.2) K/mm3 [place] # (Auto) 0.7 H (0.1-0.6) K/mm3 Eos # (Auto) 0.1 (0-0.3) K/mm3 Baso # (Auto) 0.1 (0.0-0.1) K/mm3 Comprehensive Metabolic Panel 02/23/25 Range/Units 09:21 Sodium 129 L (137-145) mmol/L Potassium 5.0 (3.4-5.0) mmol/L Chloride 93 L (98-107) mmol/L Carbon Dioxide 26 (22-30) mmol/L BUN 33 H (7-17) mg/dL Creatinine 1.28 H (0.7-1.0) mg/dL Glucose 228 H (65-110) mg/dL Calcium 8.9 (8.4-10.2) mg/dL AST 58 H (14-36) U/L ALT 33 (6-35) U/L Alkaline Phosphatase 347 H (38-126) U/L Total Protein 7.0 (6.3-8.2) g/dL Albumin 3.6 (3.5-5.1) g/dL Intake and Output 02/22/25 02/23/25 02/23/25 23:59 07:59 15:59 Intake Total 240 354 Output Total 300 Balance -60 354 Intake: Oral 240 354 Output: Urine 300 Catheter Urine 0 External/Condom 0 Other: # Incontinent Voids 1 # Urine Diapers 1 Patient Weight 02/23/25 23:59 Weight 148.5 kg EKG personally reviewed and independently interpreted showing atrial fibrillation Echocardiogram showing ejection fraction 40 45% [id number] MR and severe TR with small pericardial effusion
[2025-02-23] MEDS: RIVAROXABAN 20 MG TABLET PO (16:04)
[2025-02-23 16:09] LABS: Glucose Point of Care 192 mg/dl (65-105)
--- NOTE | 2025-02-23 16:21 | P.TS_ITS ---
Transfer Discharge Sum: Prov Provider Date of admission: 02/22/25 23:40 Primary care physician: Oswaldo Serrano, Admitting clinician: Sharifa Faith MD Consults: 02/22/25 Consult to Physician Routine Comment: Consulting Provider: Adal Lou Reason for consultation: Heart failure, anasarca Has provider been notified: Yes DS: Admitting Diagnosis Discharge Date 02/23/25 Admitting Diagnosis Shortness of breath DS: Discharge Diagnosis Discharge Diagnosis (1) Acute exacerbation of CHF (congestive heart failure): Code(s): I50.9 - Heart failure, unspecified Status: Acute (2) Pulmonary hypertension: Code(s): I27.20 - Pulmonary hypertension, unspecified Status: Acute (3) History of bacterial endocarditis: Code(s): Z86.79 - Personal history of other diseases of the circulatory system Status: Acute (4) AICD (automatic cardioverter/defibrillator) present: Code(s): Z95.810 - Presence of automatic (implantable) cardiac defibrillator Status: Acute (5) Atrial fibrillation: Code(s): I48.91 - Unspecified atrial fibrillation Status: Chronic (6) HTN (hypertension): Code(s): I10 - Essential (primary) hypertension Status: Chronic (7) GERD (gastroesophageal reflux disease): Code(s): K21.9 - Gastro-esophageal reflux disease without esophagitis Status: Chronic (8) Hypothyroidism: Code(s): E03.9 - Hypothyroidism, unspecified Status: Chronic (9) Diabetes: Code(s): E11.9 - Type 2 diabetes mellitus without complications Status: Acute Transfer Discharge Sum: Med Medications Active and Home Medications: Home Medications escitalopram oxalate 10 mg tablet 10 mg PO DAILY 06/27/20 [History Confirmed 02/22/25] nortriptyline 10 mg capsule 10 mg PO HS 06/27/20 [History Confirmed 02/22/25] omeprazole 20 mg capsule,delayed release 20 mg PO DAILY 06/27/20 [History Confirmed 02/22/25] potassium chloride 20 mEq tablet,extended release(part/cryst) 20 meq PO DAILY 06/27/20 [History Confirmed 02/22/25] rivaroxaban 20 mg tablet (Xarelto) 20 mg PO DAILY 06/27/20 [History Confirmed 02/22/25] docusate sodium 100 mg capsule 100 mg PO BID 05/21/24 [History Confirmed 02/22/25] insulin aspart U-100 100 unit/mL (3 mL) subcutaneous pen (Novolog FlexPen U-100 Insulin aspart) 10 unit subcut TIDWMEAL 05/21/24 [History Confirmed 02/22/25] insulin glargine 100 unit/mL (3 mL) subcutaneous pen (Basaglar KwikPen U-100 Insulin) 15 unit subcut QAM 05/21/24 [History Confirmed 02/23/25] levothyroxine 75 mcg tablet 75 mcg PO QAM 05/21/24 [History Confirmed 02/23/25] vibegron 75 mg tablet (Gemtesa) 75 mg PO DAILY 05/21/24 [History Confirmed 02/23/25] magnesium oxide 400 mg (241.3 mg magnesium) tablet 400 mg PO DAILY 06/29/24 [History Confirmed 02/22/25] metoprolol succinate 50 mg tablet,extended release 24 hr 100 mg PO DAILY 06/29/24 [History Confirmed 02/23/25] acetaminophen 500 mg capsule 500 mg PO Q6H PRN pain (scale score 1-3) or fever. 02/23/25 [History Confirmed 02/23/25] albuterol sulfate 90 mcg/actuation aerosol inhaler 2 puff inhalation Q6H PRN shortness of breath or wheezing 02/23/25 [History Confirmed 02/23/25] cefadroxil 500 mg capsule 1,000 mg PO Q12H 02/23/25 [History Confirmed 02/23/25] cholecalciferol (vitamin D3) 125 mcg (5,000 unit) tablet 5,000 unit PO DAILY 02/23/25 [History Confirmed 02/23/25] diphenhydramine HCl 2 % topical gel (Anti-Itch (diphenhydramine)) 1 applic topical Q6H PRN itching 02/23/25 [History Confirmed 02/23/25] ferrous sulfate 325 mg (65 mg iron) tablet (FeroSul) 325 mg PO DAILY 02/23/25 [History Confirmed 02/23/25] fluticasone propionate 50 mcg/actuation nasal spray,suspension (Flonase Allergy Relief) 1 spray intranasal DAILY PRN allergy symptoms/Rhinitis. 02/23/25 [History Confirmed 02/23/25] furosemide 40 mg tablet 40 mg PO BID 02/23/25 [History Confirmed 02/23/25] hydroxyzine HCl 25 mg tablet 25 mg PO Q4H PRN itching or anxiety. 02/23/25 [History Confirmed 02/23/25] lidocaine 4 % topical cream (AsperFlex (lidocaine)) 1 applic topical DAILY 02/23/25 [History Confirmed 02/23/25] lidocaine 4 % topical patch (Aspercreme (lidocaine)) 1 patch topical DAILY PRN back pain. 02/23/25 [History Confirmed 02/23/25] magnesium oxide 400 mg (241.3 mg magnesium) tablet 400 mg PO DAILY 02/23/25 [History Confirmed 02/23/25] multivitamin-iron 9 mg-folic acid 400 mcg-calcium and minerals tablet (Thera-M) 1 tablet PO DAILY 02/23/25 [History Confirmed 02/23/25] polyethylene glycol 3350 17 gram oral powder packet (Miralax) 17 g PO DAILY PRN constipation 02/23/25 [History Confirmed 02/23/25] spironolactone 25 mg tablet 12.5 mg PO DAILY 02/23/25 [History Confirmed 02/23/25] Transfer Discharge Sum: Hosp Hospital Course Hospital course: Loretta Penn is a 64 year old female with history of intellectual disability, AFib on Xarelto, MSSA bacteremia and endocarditis of the tricuspid valve in 05/2024, hypothyroidism, hypertension, CHF, GERD, diabetes presents to the emergency department via EMS from home for volume overload. The patient was discharged from [facility] in October and since then has been steadily gaining weight, they believed to be approximately 50 lb. Over the past several weeks the patient has become less mobile due to volume overload and has been having difficulty moving around. She lives at home and family checks on her several times a day. About 2-3 weeks ago her pack operator with [facility], Dr. Flores, increased the patient's furosemide from 40 mg once daily to 40 mg twice daily. The patient has been taking this along with her prescribed spironolactone as directed without improvement. Patient also reported decreased urine output over past few days. Patient reports progressive shortness of breath that is worse with exertion and orthopnea. She denies cough or congestion, fever. She reports no chest pain. No abdominal pain nausea vomiting. Patient also has history of AICD infection and hence was removed. She has been on cefadroxil since then. On Arrival to the ED she was agitated and belligerent requiring pharmacological treatment. Blood pressure was borderline with signs of anasarca cardiac decompensation on her chest x-ray. Chest x-ray showed cardiomegaly with chronic compensation pulmonary edema. Laboratory workup showed WBC of 3.8 hemoglobin 13 platelet 243 lactic acid of 2.4. Chem panel with creatinine of 1.16 BUN of 34 alk phosphatase chronically elevated at 438 bilirubin elevated at 4.4 BNP at 2870. UA negative for UTI. TSH slightly high at 10.9 with stay-0.014-0.018. She was also planned to have a valve replacement. She received IV Bumex. She also noted to [facility] CT chest abdomen pelvis showed no aneurysm or dissections cardiomegaly cardiac decompensation and right heart failure with pulmonary hypertension. Bilateral pleural effusions more left side small pericardial effusion no signs of tamponade. She has been planned to be transferred to [facility] with accepted the patient however bed availability is pending. Echo performed in the ER showed EF of 40-45% [id number] MR severe tricuspid regurgitation small pericardial effusion. History of MSSA bacteremia and endocarditis of the tricuspid valve 05/2024 completed treatment however back with persistent back pain on June [address] findings of possible osteomyelitis and recurrence of MSSA bacteremia. On 05/30/2024 she was found to have dislodged catheter versus white in the right pulmonary artery. Gt performed did not show tricuspid valve revealed vegetation but the catheter versus wire in right pulmonary artery and left appt atrial appendage clot. Was started on anticoagulation. Readmission for VFib and ICD placement on 06/2024. Atrial fibrillation on chronic anticoagulation with Xarelto Acute on chronic systolic diastolic congestive heart failure on IV diuretics. Patient subsequently transferred to [place] for further treatment. Multiple lung nodules noted on CT chest 06/2024. Largest in right upper lobe measuring 1.[address] chest this admission with no nodules noted previously. GERD Hypothyroidism Type 2 diabetes Hiatal hernia DVT prophylaxis on Xarelto Code status full code Time Spent with Patient Time attestation: Total time spent providing and/or coordinating transfer services: 35 minutes Exam Narrative: GENERAL: Chronically ill-appearing, morbidly obese not in acute distress with morbid obesity HEAD: Normocephalic, atraumatic. EYES: PERRLA and EOMI. ENT: Nares clear, no rhinorrhea or epistaxis. Mucous membranes moist. NECK: Supple. CHEST: Clear to auscultation. No respiratory distress. HEART: Regular rate and rhythm. No murmur heard. Normal peripheral pulses. ABDOMEN: Soft, nontender, nondistended, normal active bowel sounds. Ecchymosis to the abdominal wall with no tenderness EXTREMITIES: Normal range of motion. Extensive edema to bilateral lower extremities SKIN: Warm, dry, no rash. NEURO: No focal deficits. Alert and oriented x3. Moving all extremities spontaneously DS: Data Imaging Radiologist's impression: ITS Impressions Chest X-Ray 02/21/25 18:02 IMPRESSION: Cardiomegaly with cardiac decompensation and pulmonary edema. Left basilar atelectasis versus pneumonia with pleural effusion. Follow-up to resolution advised Chest/Abdomen/Pelvis CTA 02/21/25 22:56 IMPRESSION: CHEST: 1. No aneurysmal dilatation or dissection seen in the aorta. 2. Cardiomegaly with pericardial effusion and right-sided failure. 3. Pulmonary hypertension 4. Bilateral pleural effusion more on the left side with adjacent atelectasis versus pneumonia. ABDOMEN/PELVIS: 1. No aneurysmal dilatation of dissection. 2. Fat infiltration of the liver. 3. Minimal fluid in the left paracolic gutter and around the spleen. 4. Constipation. 5. Edematous subcutaneous tissues suggestive of October volume lobe. 6. Atrophic pancreas.
--- NOTE | 2025-02-23 17:40 | PC.NURSE ---
bed assignment from [facility] rm [id number] [facility]
--- NOTE | 2025-02-23 19:28 | PC.NURSE ---
pt loaded on stretcher with [employer] crew, has belongings including phone cord, cell phone, purse and walker
--- NOTE | 2025-02-23 19:36 | PC.NURSE ---
pt left w/ at 192
== END 2025-02-23 19:25 | disposition short-term general hospital (02) | DRG 291 ==
LOC: ANHED 02-22 09:33 → ANHIMU 02-23 00:19
PROVIDERS: Student in an Organized Health Care Education/Training Program; Admitting Provider Internal Medicine; Emergency Provider Physician Assistant; PCP Family Medicine; Visit Provider Internal Medicine
DX: I11.0 Hypertensive heart disease with heart failure (principal); I50.43 Acute on chronic combined systolic (congestive) and diastolic (congestive) heart failure; I48.20 Chronic atrial fibrillation, unspecified; I27.20 Pulmonary hypertension, unspecified; K21.9 Gastro-esophageal reflux disease without esophagitis; E11.9 Type 2 diabetes mellitus without complications; E03.9 Hypothyroidism, unspecified; K44.9 Diaphragmatic hernia without obstruction or gangrene; N32.81 Overactive bladder; I42.8 Other cardiomyopathies; D69.6 Thrombocytopenia, unspecified; R91.8 Other nonspecific abnormal finding of lung field; Z86.79 Personal history of other diseases of the circulatory system; Z95.810 Presence of automatic (implantable) cardiac defibrillator; Z79.01 Long term (current) use of anticoagulants; Z87.891 Personal history of nicotine dependence; Z87.820 Personal history of traumatic brain injury
CPT/HCPCS: 36415; 71045; 71275; 74174; 80053; 81003; 82948; 83605; 83735; 83880; 84439; 84443; 84484; 85025; 85610; 85730; 93005; 93308; 96365; 96366; 96375; 99285; A9270; J1630; J1815; J1939; P9047; Q9967

== ENCOUNTER 2025-06-07 17:53 | Inpatient (IN) | payer OTHER, SELFPAY ==
--- OUTSIDE RECORDS SUMMARY | 2024-09-10 10:15 | XMS_ITS ---
Author Organization [facility] Address [address] [facility] [address] [place], [place] [id number] Care Team Providers Care Pipe [address] Service Name Role Phone JEREMÍAS MAGANA Primary Care Provider [phone] REASON FOR VISIT 1 month f/u Medications [...] Active Encounters Encounter Location Date Provider Diagnosis [facility] [address] [place], [place] [id number] 09/10/2024 JEREMÍAS MAGANA Plan Of Treatment Next Appt Details Provider Name:JEREMÍAS Mills, 08/01/2025 01:00:00 PM, [address] , [place], [place], [id number], Progress Notes * Daria RODRIGUEZOB:[birth year]19 (64 yo F)Acc No.[id number]:09/10/2024 Progress Notes Patient: Loretta NAM Provider: Erick Magana M.D. :1960 A ge:63 Y S ex:Female Date:09/10/2024 Address:[facility] [address] [place], [place] [id number] Subjective: * Chief Complaints: * 1 . [...] signature of WILL AWAIS MAGANA MD on 06/08/2025 at 01:06 AM CDT Sign off status: Pending * Provider: Erick Magana M.D. Date: 11/11/2023 Generated for Howard wang/Latoya/Raquel on: 0 06/08/2025 01:06 AM CDT
--- OUTSIDE RECORDS SUMMARY | 2024-09-10 10:15 | XMS_ITS ---
Author Organization [facility] Address [address] [facility] [address] [place], [place] [id number] Care Team Providers Care Senior Shipping Clerk Name Role Phone JEREMÍAS MAGANA Primary Care [...] Healthcare [address] [place], [place] [id number] 09/10/2024 JEREMÍAS MAGANA Plan Of Treatment Next Appt Details Provider Name:JEREMÍAS Mills, 08/01/2025 01:00:00 PM, [address] , [place], [place], [id number], Progress Notes * Daria RODRIGUEZOB:[birth year] (64 yo F)Acc No.[id number]:09/10/2024 Progress Notes Patient: Loretta NAM Provider: Erick Magana M.D. :1960 A ge:63 Y S ex:Female Date:09/10/2024 Address:[facility] [address] [place] [id number] Subjective: * Chief Complaints: * 1 . [...] signature of WILL AWAIS MAGANA MD on 06/07/2025 at 05:57 PM CDT Sign off status: Pending * Provider: Erick Magana M.D. Date: 1 11/11/2023 Generated for Howard wang/Latoya/Raquel on: 0 06/07/2025 05:57 PM CDT
--- OUTSIDE RECORDS SUMMARY | 2024-12-17 09:30 | XMS_ITS ---
Author Organization [facility] Address [address] [place], [place] [address] Care Team Providers Care Eligibility Counselor Name Role Phone JEREMÍAS MAGANA Primary Care Provider [phone] REASON FOR VISIT 3 month f/u Encounters Encounter Location Date Provider Diagnosis [facility] [address] [facility] [address] [place], [place] [phone] 12/17/2024 JEREMÍAS MAGANA Plan Of Treatment Next Appt Details Provider Name:JEREMÍAS Mills, 08/01/2025 01:00:00 PM, [address], [place], [place], [id number], Progress Notes * Daria RODRIGUEZOB:[birth year] (64 yo F)Acc No.[id number]:12/17/2024 Progress Notes Patient: Loretta NAM Provider: Erick Magana M.D. :1960 A ge:63 Y S ex:Female Date:12/17/2024 Address:[address] [facility] Subjective: * Chief Complaints: * 1 . 3 month f/u. * Medical History: Objective: * Vitals: Assessment: Plan: * Treatment: * Billing Information: * Visit Code: * Procedure Codes: * Electronic signature of MARJORIE MAGANA MD on 06/08/2025 at 01:06 AM CDT Sign off status: Pending * Provider: Erick Magana M.D. Date: 0 12/17/2024 Generated for Howard wang/Latoya/Sumeetitting on: 0 06/08/2025 01:06 AM MAUREEN
--- OUTSIDE RECORDS SUMMARY | 2024-12-17 09:30 | XMS_ITS ---
Author Organization [facility] Address [address] [place], [place] [address] Care Team Providers Care Superintendent Gas Distribution Name Role Phone JEREMÍAS MAGANA Primary Care Provider REASON FOR VISIT 3 month f/u Encounters Encounter Location Date Provider Diagnosis [facility] [address] [facility] [address] [place], [place] [address] 12/17/2024 JEREMÍAS MAGANA Plan Of Treatment Next Appt Details Provider Name:JEREMÍAS Mills, 08/01/2025 01:00:00 PM, [address], [address], [place], [place], [phone], Progress Notes * Daria RODRIGUEZOB:[birth year] (64 yo F)Acc No.[id number]:12/17/2024 Progress Notes Patient: Loretta NAM Provider: Erick Magana M.D. :1960 A ge:63 Y S ex:Female Date:12/17/2024 Address:[address] [facility] Subjective: * Chief Complaints: * 1 . 3 month f/u. * Medical History: Objective: * Vitals: Assessment: Plan: * Treatment: * Billing Information: * Visit Code: * Procedure Codes: * Electronic signature of MARJORIE MAGANA MD on 06/07/2025 at 05:56 PM CDT Sign off status: Pending * Provider: Erick Magana M.D. Date: 0 12/17/2024 Generated for Howard wang/Latoya/Sumeetitting on: 0 06/07/2025 05:56 PM MAUREEN
--- OUTSIDE RECORDS SUMMARY | 2025-01-09 08:30 | XMS_ITS ---
Author Organization [facility] Address [address] [place], [place] [address] Care Team Providers Care Residential Monitor Name Role Phone JEREMÍAS MAGANA Primary Care Provider [phone] Encounters Encounter Location Date Provider Diagnosis [facility] [address] [facility] [address] [place], [place] [phone] 01/09/2025 JEREMÍAS MAGANA Plan Of Treatment Next Appt Details Provider Name:JEREMÍAS Mills, 08/01/2025 01:00:00 PM, [address], [place], [place], [phone], Progress Notes * Daria RODRIGUEZOB:[birth year] (64 yo F)Acc No.[id number]:01/09/2025 Progress Notes Patient: Loretta NAM Provider: Erick Magana M.D. :1960 A ge:64 Y S ex:Female Date:01/09/2025 Address:[address] [facility] Subjective: * Chief Complaints: * * Medical History: Objective: * Vitals: Assessment: Plan: * Treatment: * Billing Information: * Visit Code: * Procedure Codes: * Electronic signature of MARJORIE MAGANA MD on 06/07/2025 at 05:56 PM CDT Sign off status: Pending * Provider: Erick Magana M.D. Date: 0 01/09/2025 Generated for Howard wang/Latoya/Sumeetitting on: 0 06/07/2025 05:56 PM CDT
--- OUTSIDE RECORDS SUMMARY | 2025-01-09 08:30 | XMS_ITS ---
Author Organization [facility] Address [address] [place], [place] [address] Care Team Providers Care Plater Barrel Name Role Phone JEREMÍAS MAGANA Primary Care Provider [phone] Encounters Encounter Location Date Provider Diagnosis [facility] [address] [facility] [address] [place] [id number] 01/09/2025 JEREMÍAS MAGANA Plan Of Treatment Next Appt Details Provider Name:JEREMÍAS Mills, 08/01/2025 01:00:00 PM, [address], [address], [place], [place], [phone], Progress Notes * Daria RODRIGUEZOB:[birth year] (64 yo F)Acc No.[id number]:01/09/2025 Progress Notes Patient: Loretta NAM Provider: Erick Magana M.D. :1960 A ge:64 Y S ex:Female Date:01/09/2025 Address:[address] [facility] Subjective: * Chief Complaints: * * Medical History: Objective: * Vitals: Assessment: Plan: * Treatment: * Billing Information: * Visit Code: * Procedure Codes: * Electronic signature of MARJORIE MAGANA MD on 06/08/2025 at 01:06 AM CDT Sign off status: Pending * Provider: Erick Magana M.D. Date: 0 01/09/2025 Generated for Howard wang/Latoya/Sumeetitting on: 0 06/08/2025 01:06 AM CDT
--- OUTSIDE RECORDS SUMMARY | 2025-05-15 18:17 | XMS_ITS | Encounter Summary ---
Author Organization [facility] Address [address] [place] [address] Care Team Providers Care Copper Plater Name Role Phone Fredis Klein APRN-ORNAMENTAL MACHINE OPERATOR Primary Care Provider Reason for Referral * Consultation (Urgent) - Closed Specialty Diagnoses / Procedures Referred By Praful ferro Referred To Contact Transitional Care Diagnoses Left atrial thrombus Jennifer Burton MD [address] [place] [address] Phone: tel: fax: Transitional Care at [address] [address] Phone: tel: fax: Referral ID Status Reason Start Date Expiration Date V isits Requested Visits Authorized [id number] Closed Specialty Services Required 06/05/2025 06/05/2026 1 1 * PT/OT/ST (Routine) - Open Specialty Diagnoses / Procedures Referred By Praful ferro Referred To Contact Physical Therapy Diagnoses Left atrial thrombus Jennifer Burton MD [address] [place] [address] Phone: tel: fax: Referral ID Status Reason Start Date Expiration Date V isits Requested Visits Authorized [id number] Open Specialty Services Required 06/05/2025 06/05/2026 1 1 * Independent Medical Evaluation (Routine) - Open Specialty Diagnoses / Procedures Referred By Praful t Referred To Contact Occupational Therapy Diagnoses Left atrial thrombus Jennifer Burton MD [address] [place] [address] Phone: tel: fax: Referral ID Status Reason Start Date Expiration Date V isits Requested Visits Authorized [id number] Open Specialty Services Required 06/05/2025 06/05/2026 1 1 * Consultation (Routine) - Closed Specialty Diagnoses / Procedures Referred By Calvinac t Referred To Contact Transitional Care Unit / Transitional Care Diagnoses Acute on chronic congestive heart failure, unspecified heart failure type (HCC) Hyponatremia Atrial fibrillation, unspecified type (HCC) Left atrial thrombus Jefry Arizmendi MD [address] [facility] [address] [place] [address] Phone: tel: fax: Transitional Care at [facility] [address] [place] [id number] Phone: tel: fax: Referral ID Status Reason Start Date Expiration Date V isits Requested Visits Authorized [id number] Closed Specialty Services Required 05/26/2025 05/26/2026 1 1 * Evaluate & Treat (Routine) - Open Specialty Diagnoses / Procedures Referred By Contac t Referred To Contact Cardiology Diagnoses Atrial fibrillation, unspecified type (HCC) Left atrial thrombus Jefry Arizmendi MD [address] [facility] [address] [facility] [place] [address] Phone: tel: fax: [facility] - Cardiology [address] [facility] [place] [address] Phone: tel: fax: Referral ID Status Reason Start Date Expiration Date V isits Requested Visits Authorized [id number] Open Specialty Services Required 05/26/2025 05/26/2026 1 1 Scheduling Instructions Family wants to discuss TR valve treatment. CHANCE to be repeated in 3m, ordered * Cardiac (Routine) - Pending Review Specialty Diagnoses / Procedures Referred By Praful ferro Referred To Contact Diagnoses Atrial fibrillation, unspecified type (HCC) Left atrial thrombus Procedures ECHO CHANCE AL ECHO TRANSESOPHAGEAL, INTERP/REP AL DOPPLER ECHO HEART,COMPLETE AL DOPPLER COLOR FLOW VELOCITY MAP Jefry Arizmendi MD [address] [facility] [address] [place] [address] Phone: tel: fax: Referral ID Status Reason Start Date Expiration Date V isits Requested Visits Authorized [id number] Pending Review 08/20/2025 08/20/2026 1 1 Reason for Visit * Reason Comments Swelling Foot BIBfriend c/o recent weight gain and swelling all over, particularly in her feet. Gained 9lbs in 2 days. Takes a water pill. Pt appears slightly jaundiced in triage. * Auth/Cert (Routine) Specialty Diagnoses / Procedures Referred By Praful ferro Referred To Contact Referral ID Status Reason Start Date Expiration Date Visits Re quested Visits Authorized [id number] 1 1 Encounter Details Date Type Department Care Team (Late st Contact Info) Description 05/15/2025 6:17 PM CDT - 06/06/2025 5:19 PM CDT Hospital Encounter [facility] [address] [place] [address] Juno Hernandez MD [address] [place] [address] Aleja Gonzalez DO [address] [place] [address] Adryan Shabazz MD [address] [place] [id number] Linda Lezama MD [address] [place] [address] Jefry Arizmendi MD [address] [place] [address] Lyndon Fishman MD [address] [place] [address] Debi Joseph MD [address] [place] [address] [place] [address] Mariah Yadav MD [address] OF H[facility]PICE[facility] [place] [address] [place] [address] Jennifer Burton MD [address] [place] [address] Vamsi Rocha MD [address] [facility] [address] [facility] [place] [address] Hospitalist Discharge Disposition: Half-Way Facility Social History Tobacco Use Types Packs/Day Years Used Date Smoking Tobacco: Never Smokeless Tobacco: Never Tobacco Cessation:Counseling Given: Not Answered Alcohol Use Standard Drinks/Week Comments Never 0 (1 standard drink = 0.6 oz pur e alcohol) AUDIT-C Answer Date Recorded Q1: How often do you have a drink containing alcohol? Never 05/15/2025 Q2: How many drinks containi ng alcohol do you have on a typical day when you are drinking? Patient does not drink Q3: How often do you have si x or more drinks on one occasion? Never 05/15/2025 Overall Financial Resource Strain (CARDIA) Answe r Date Recorded How hard is it for you to pa y for the very basics like food, housing, medical care, and heating? Not hard at all 05/15/2025 [employer] [facility] - Occupational Stress Questionnaire Answer Date Recorded Do you feel stress - tense, restless, nervous, or anxious, or unable to sleep at night because your mind is troubled all the time - these days? Only a little 05/15/2025 Hunger Vital Sign Answer Date Recorded Within the past 12 months, y ou worried that your food would run out before you got the money to buy more. Never true 05/15/20 25 Within the past 12 months, t he food you bought just didn't last and you didn't have money to get more. Never true 05/15/2025 PRAPARE - Transportation Answer Date Re corded In the past 12 months, has l ack of transportation kept you from medical appointments or from getting medications? No 03/2025 In the past 12 months, has l ack of transportation kept you from meetings, work, or from getting things needed for daily living? No 05/15/2025 Housing Stability Vital Sign Answer Charlie e Recorded In the last 12 months, was t here a time when you were not able to pay the mortgage or rent on time? No 05/15/2025 In the past 12 months, how m any times have you moved where you were living? 0 05/15/2025 At any time in the past 12 m [facility], were you homeless or living in a fdc (including now)? No 05/15/2025 Comments Unknown Sex and Gender Information Value Date Recorded Sex Assigned at Not on file Legal Sex Female 4:45 PM CDT Gender Identity Not on file Sexual Orientation Not on file documented as of this encounter Last Filed Vital Signs Vital Sign Reading Time Taken Comments Blood Pressure 102/48 06/06/2025 8:10 AM CDT Pulse 99 06/06/2025 8:10 AM CDT Temperature 37.6 C (99.7 F) 06/06/2025 8:10 AM CDT Respiratory Rate 16 06/06/2025 8:10 AM CDT Oxygen Saturation 95% 06/06/2025 8:10 AM CDT Inhaled Oxygen Concentration 36% 05/24/2025 4 :05 PM CDT Weight 97.9 kg (215 lb 12.8 oz) 06/06/2025 4:00 AM CDT Height 167.6 cm (5' 6) 05/28/2025 7:52 AM CDT Body Mass Index 34.83 05/28/2025 7:52 AM CDT documented in this encounter Functional Status * Question Answer Date of Assessment Author Q1: How often do you have a drink containing alcohol? Never 05/15/2025 11:06 PM CDT Janki Casanova RN Q2: How many drinks containing alcohol do you have on a typical day when you are drinking? Patient does not drink 05/15/2025 11:06 PM CDT Janki Casanova RN Q3: How often do you have six or more drinks on one occasion? Never 05/15/2025 11:06 PM CDT Janki Casanova RN * Audit-C Score Answer Date of Assessment Author 0 05/15/2025 11:06 PM CDT Janki Casanova RN * Is person deaf or have serious hearing difficulty? Answer Date of Assessment Author No 05/16/2025 12:10 PM CDT Naa Logan RN * Is person blind or have serious difficulty seeing? Answer Date of Assessment Author Yes 05/16/2025 12:10 PM CDT Naa Logan RN * Does person have serious difficulty walking/climbing stairs? Answer Date of Assessment Author Yes 05/16/2025 12:10 PM CDT Naa Logan RN * Does person have difficulty dressing/bathing? Answer Date of Assessment Author No 05/16/2025 12:10 PM CDT Naa Logan RN * Does person have difficulty doing errands alone? Answer Date of Assessment Author Yes 05/16/2025 12:10 PM CDT Naa Logan RN documented as of this encounter Mental Status * Does person have difficulty concentrating/remembering/making decisions? Answer Entry Date Author Yes 05/16/2025 12:10 PM CDT Naa Logan RN documented in this encounter Discharge Summaries * Jennifer Burton MD - 06/06/2025 9:39 AM CDT Images from the original note were not included. Hospital Discharge Summary Patient ID: Loretta Dowingham [id number] 64 year old 1960 Admit date: 05/15/2025 Discharge date: 06/06/2025 Admitting Physician: Lyndon Fishman MD Discharge Physician: Jennifer Burton MD Discharge Diagnoses: Hyperkalemia (POA: Yes) Hyperbilirubinemia (POA: Yes) Hyponatremia (POA: Yes) Transaminitis (POA: Yes) Elevated alkaline phosphatase level (POA: Yes) Acute on chronic congestive heart failure, unspecified heart failure type (HCC) (POA: Yes) Obesity with serious comorbidity, unspecified class, unspecified obesity type (POA: Yes) Demand ischemia (HCC) (POA: Yes) History of endocarditis (POA: Yes) Agitation (POA: Yes) Hypothyroidism (POA: Yes) Atrial fibrillation (HCC) (POA: Yes) Prolonged Q-T interval on ECG (POA: Yes) Pericardial effusion (HCC) (POA: Yes) Acute kidney injury (POA: Yes) Type 2 diabetes mellitus, without long-term current use of insulin (HCC) (POA: Yes) Shortness of breath (POA: Unknown) Condition during admission: Sick Condition during discharge: Stable Hospital Course: 64 year-old female with past medical history significant for HFrEF (EF 25% 02/2025), severe TR, 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 Pt was initially admitted to medicine service and cardiology consulted regarding severity of heart failure and other valvular issues. On admission, labs significant for BNP 2209, trop 24-->23, Na 122, K 6.1, Cr 1.48, alk phos 365, bili 7.7.Pt was shifted with insulin + dextrose, given patiromer and. She was started on IV furosemide TID for acute HFrEF. EKG showing Qtc prolongation. Pt noted to be hypoglycemic in 40s on 05/16 AM, hypoglycemia protocol initiated. Patient transferred to primary cardiology service on 05/16 d/t concern that patient may develop cardiogenic shock. On 05/17, decision was made to proceed with light sedation in order to be able to provide meds to pt given that she was not taking any orals d/t sedation; additionally Na in 121-122 range and pt would need more frequent lab draws for mgmt. On transfer to ICU, pt increasing agitated and given IV ativan. Then noted to be obtunded, intubated for airway protection. She was given hypertonic saline 2x, and was also briefly on levophed for BP support. ICU team c/s for mech vent management. Started on nitroprusside drip, but then discontinued d/t no proper BP measurements. Palliative consulted regarding family's understanding of medical conditions and difficult decision making. A line and central line placed. Sedation was discontinued on 05/19 AM, pt responding to name but not following commands. Noted to have afib with RVR overnight, proceeded with CHANCE DCCV. On CHANCE on 05/20, pt noted to have LA thrombus, DCCV was aborted. Lactic increasing on 05/20, given 250cc bolus for c/f hypovolemic shock. Patient unable to extubate d/t inability to follow commands despite weaning sedation between 05/21-05/22. Extubated on 05/24. Passed swallow study on 05/27, NG removed and patient transferred to floor. Demand ischemia (HCC) Acute on chronic congestive heart failure, unspecified heart failure type (HCC) History of endocarditis - TTE with EF of 25% on 05/27/25 -regarding severe TR: not to have inpt intervention but will need outpt f/u. Pt was supposed to follow with [facility], advise to keep that appointment but will refer to [facility] cardiology in case Cont on cefadroxil 500mg BID on discharge Atrial fibrillation (HCC) Prolonged Q-T interval on ECG - Unable to do DCCV d/t LA thrombus - Cont Eliquis - Will need repeat CHANCE in 3 months on discharge to reassess thrombus Discussed with patient's sister over the phone before the discharge, the hospital course and treatment recommendation was discussed, her questions and concerns were addressed in detail before the discharge to facility. Significant Diagnostic Studies: CBC: Recent Labs Lab Units 06/06/2551806/05/2544006/04/25 0410 WBC x10E9/L 3.7* 4.2 4.5 RBC x10E12/L 3.90 3.85* 3.95 HGB g/dL 13.6 13.2 13.4 HCT % 40.3 40.2 39.8 BMP: Recent Labs Lab Units 06/06/2551806/05/2544006/04/25 0410 NA mmol/L 133* 132* 135* CL mmol/L 104 104 104 CO2 mmol/L 25 23 23 BUN mg/dL 19 20 20 CREATININE mg/dL 0.70 0.79 0.85 CALCIUM mg/dL 8.6 8.7 8.8 Phosphorus: Recent Labs Lab Units 06/06/2551806/05/2544006/04/25 0410 PHOS mg/dL 3.5 3.7 3.8 Reviewed active orders 06/06/2025 Relevant labs reviewed 06/06/2025 Relevant imaging reviewed 06/06/2025 Pending Labs: Discharge Exam: BP 102/48 (BP Location: Right arm, Patient Position: Lying) Pulse 99 Temp 99.7 ??F (37.6 ??C) (Axillary) Resp 16 Ht 1.676 m (5' 6) Wt 97.9 kg (215 lb 12.8 oz) SpO2 95% GEN: in NAD CHEST: Clear to auscultation bilaterally HEART: Regular rate and rhythm, Nl S1 and S2, No gallops. GI: Abdomen soft and non tender, no rigidity and guarding, non-distended, +BS EXT: No edema. PSYCH: Alert and oriented to person, place, time and situation. Good mood, appropriate affect. Disposition: [facility] Patient Instructions: Medication List START taking these medications apixaban 5 MG tablet Commonly known as: Eliquis Take 1 (one) tablet by mouth 2 times daily empagliflozin 10 MG tablet Commonly known as: Jardiance Take 1 (one) tablet by mouth once daily sacubitril-valsartan 24-26 MG tablet Commonly known as: Entresto Take 0.5 (one-half) tablet by mouth 2 times daily CHANGE how you take these medications * cyanocobalamin 500 MCG tablet Commonly known as: Vitamin B-12 What changed: Another medication with the same name was added. Make sure you understand how and when to take each. * vitamin B-12 500 MCG tablet Commonly known as: Cyanocobalamin Take 1 (one) tablet by mouth once daily What changed: You were already taking a medication with the same name, and this prescription was added. Make sure you understand how and when to take each. metoprolol succinate XL 24hr 25 MG tablet Commonly known as: Toprol XL Take 1 (one) tablet by mouth once daily What changed: medication strength how much to take * This list has 2 medication(s) that are the same as other medications prescribed for you. Read thedirections carefully, and ask your doctor or other care provider to review them with you. CONTINUE taking these medications acetaminophen 500 MG tablet Commonly known as: Tylenol albuterol HFA 108 (90 Base) MCG/ACT inhaler Commonly known as: Proventil; Ventolin; Proair ascorbic acid 500 MG tablet Commonly known as: VITAMIN C busPIRone 10 MG tablet Commonly known as: Buspar cefadroxil 500 MG capsule Commonly known as: Duricef Cholecalciferol 125 MCG (5000 UT) docusate sodium 100 MG capsule Commonly known as: Colace escitalopram 10 MG tablet Commonly known as: Lexapro ferrous sulfate EC 325 (65 Fe) MG tablet fluticasone propionate 50 MCG/ACT nasal spray Commonly known as: Flonase Gemtesa 75 MG tablet Generic drug: vibegron hydrocortisone 1 % cream Commonly known as: Hytone hydrOXYzine HCl 25 MG tablet Commonly known as: Atarax insulin aspart FlexPen Commonly known as: NovoLOG insulin lispro 100 UNIT/ML vial Commonly known as: HumaLOG levothyroxine 75 MCG tablet Commonly known as: Synthroid lidocaine 4 % patch Commonly known as: Lidoderm Magnesium Oxide -Mg Supplement 400 (240 Mg) MG nortriptyline 10 MG capsule Commonly known as: Pamelor omeprazole 20 MG capsule Commonly known as: PriLOSEC polyethylene glycol 3350 17 g packet Commonly known as: Miralax spironolactone 25 MG tablet Commonly known as: Aldactone STOP taking these medications ACETAMINOPHEN-DM PO CELEXA PO COREG PO furosemide 40 MG tablet Commonly known as: Lasix HUMULIN 70/30 SC IRON PO LISINOPRIL & DIET MANAGE PROD PO METFORMIN & DIET MANAGE PROD PO nitrofurantoin monohyd macro crystals 100 MG capsule Commonly known as: Macrobid OXYBUTYNIN CHLORIDE PO RANITIDINE & DIET MANAGE PROD PO TRAMADOL & DIETARY MANAGE PROD PO Xarelto 20 MG tablet Generic drug: rivaroxaban Where to Get Your Medications Information about where to get these medications is not yet available Ask your nurse or doctor about these medications apixaban 5 MG tablet empagliflozin 10 MG tablet metoprolol succinate XL 24hr 25 MG tablet sacubitril-valsartan 24-26 MG tablet vitamin B-12 500 MCG tablet Contact information for follow-up providers Fredis Klein, PERFUSIONIST-ORNAMENTAL MACHINE OPERATOR . Specialty: Nurse Practitioner Contact information: [address] [facility] [address] Contact information for after-discharge care Destination [facility] . Service: Half-Way Contact information: [address] [facility] [address] Discharge Instructions None If you have any questions about your medications, please be sure to ask the pharmacy when you tack picker your prescription. You may also call your primary provider if you are uncertain if you should be taking your medication. CONCERNING SYMPTOMS: When to call your healthcare provider: Call your healthcare provider immediately if you have any of the following: - Fever of 100.4??F (38??C) or higher - Shaking chills - Intractable nausea and vomiting - Severe headache - Confusion/altered mental status - Seizures (convulsions) - Weakness in arms/legs - Dizziness If you are unable to reach your primary provider, please go to the nearest emergency room immediately or call EMS ([phone]). FOLLOW-UP: Please follow up with your PCP within 1 week of discharge, follow-up at [facility] within 1 weekafter discharge It is essential that you keep all of your follow-up appointments and go to your doctors appointments as scheduled. If a follow-up with your primary care provider has not been scheduled, you need to schedule an appointment tofollow-up on your hospitalization. If there is a conflict, please call the clinic ahead of time and reschedule the appointment. Thanks! Internal Medicine Department [address] [address] Signed: Jennifer Burton MD, MRCP, FACP, FRCP heating and air conditioning mechanic Time spent on discharge: More than 40 minutes. Time was spent on preparation of discharge records, prescriptions, counseling patient, working withsocial work and nursing, discussion with consult team. documented in this encounter Medications at Time of Discharge acetaminophen (Tylenol) 500 MG tablet Take 1 (one) tablet by mouth every 6 hours as needed 03/15/2025 albuterol HFA (Proventil; Ventolin; Proair) 108 (90 Base) MCG/ACT inhaler Inhale 2 (two) puffs by mouth every 6 hours as needed for Shortness of Breath 08/05/2024 apixaban (Eliquis) 5 MG tablet Take 1 (one) tablet by mouth 2 times daily 06/05/2025 ascorbic acid (VITAMIN C) 500 MG tablet Take 1 (one) tablet by mouth once daily 05/02/2025 busPIRone (Buspar) 10 MG tablet Take 1 (one) tablet by mouth 2 times daily 05/03/2025 cefadroxil (Duricef) 500 MG capsule Take 2 (two) capsules by mouth 2 times daily 10/29/2024 Cholecalciferol 125 MCG (5000 UT) Take 1 (one) tablet by mouth once daily cyanocobalamin (Cyanocobalamin ) 500 MCG tablet Take 1 (one) tablet by mouth once daily 06/05/2025 cyanocobalamin (Vitamin B-12) 500 MCG tablet Take 1 (one) tablet by mouth once daily docusate sodium (Colace) 100 MG capsule Take 1 (one) capsule by mouth 2 times daily empagliflozin (Jardiance) 10 MG tablet Take 1 (one) tablet by mouth once daily 06/05/2025 escitalopram (Lexapro) 10 MG tablet Take 1 (one) tablet by mouth once daily 12/12/2023 ferrous sulfate EC 325 (65 Fe) MG tablet Take 1 (one) tablet by mouth once daily fluticasone propionate (Flonase) 50 MCG/ACT nasal spray [facility] 2 (two) sprays into each nostril 2 times daily Gemtesa 75 MG tablet Take 1 (one) tablet by mouth once daily 08/09/2024 hydrocortisone (Hytone) 1 % cream Apply to affected area as needed (itching) 03/18/2025 hydrOXYzine HCl (Atarax) 25 MG tablet Take 1 (one) tablet by mouth every 4 hours as needed for Itching insulin aspart (NovoLOG) FlexPen Inject 15 (fifteen) Units subcutaneously 3 times daily,before breakfast/lunch/bed time 15- 18 units before each meal 08/09/2024 insulin lispro (HumaLOG) 100 UNIT/ML vial Inject 18 (eighteen) Units subcutaneously 3 times daily before meals Family report 18 units Qam 18 units Qpm 10 units QHS levothyroxine (Synthroid) 75 MCG tablet Take 1 (one) tablet by mouth every morning 09/23/2024 lidocaine (Lidoderm) 4 % patch Apply 1 (one) patch to skin once daily as needed (pain) Magnesium Oxide -Mg Supplement 400 (240 Mg) MG Take 1 (one) tablet by mouth once daily 06/22/2024 metoprolol succinate XL 24hr (Toprol XL) 25 MG tablet Take 1 (one) tablet by mouth once daily 06/05/2025 nortriptyline (Pamelor) 10 MG capsule Take 1 (one) capsule by mouth once daily omeprazole (PriLOSEC) 20 MG capsule Take 1 (one) capsule by mouth once daily polyethylene glycol 3350 (Miralax) 17 g packet Take 17 (seventeen) g by mouth once daily as needed 03/19/2025 sacubitril-vals mariza (Entresto) 24-26 MG tablet Take 0.5 (one-half) tablet by mouth 2 times daily 06/05/2025 spironolactone (Aldactone) 25 MG tablet Take 0.5 (one-half) tablet by mouth once daily 10/09/2024 documented as of this encounter Progress Notes * Dariel Stanley, BROWN - 06/06/2025 4:05 PM CDT Problem: Neurosensory - Adult Goal: Achieves stable or improved neurological status Description: INTERVENTIONS Outcome: Progressing Goal: Remains free of injury related to seizures activity Description: INTERVENTIONS: Outcome: Progressing Goal: Achieves maximal functionality and self care Description: INTERVENTIONS: Outcome: Progressing Problem: Respiratory - Adult Goal: Achieves optimal ventilation and oxygenation Description: INTERVENTIONS: Outcome: Progressing Problem: Cardiovascular - Adult Goal: Maintains optimal cardiac output and hemodynamic stability Description: INTERVENTIONS: Outcome: Progressing Goal: Absence of cardiac dysrhythmias or at baseline Description: INTERVENTIONS: Outcome: Progressing Problem: Skin/Tissue Integrity - Adult Goal: Skin integrity remains intact Description: INTERVENTIONS: Outcome: Progressing Problem: Skin/Tissue Integrity - Adult Goal: Skin integrity remains intact Description: INTERVENTIONS: Outcome: Progressing Goal: Incisions, wounds, or drain sites healing without S/S of infection Description: INFECTIONS: Outcome: Progressing Goal: Oral mucous membranes remain intact Description: INTERVENTIONS: Outcome: Progressing Problem: Neurovascular Musculoskeletal - Adult Goal: Return mobility to safest level of function Description: INTERVENTIONS: Outcome: Progressing Goal: Maintain proper alignment of affected body part Description: INTERVENTIONS: Outcome: Progressing Goal: Return ADL status to a safe level of function Description: INTERVENTIONS: Outcome: Progressing Goal: Absence or reduction of edema Description: INTERVENTIONS Outcome: Progressing Goal: Maintains or improves tissue perfusion Description: INTERVENTIONS Outcome: Progressing Problem: Genitourinary - Adult Goal: Maintains or returns to baseline genitourinary function Description: INTERVENTIONS: Outcome: Progressing Goal: Urinary catheter remains patent Description: INTERVENTIONS: Outcome: Progressing Problem: Infection - Adult Goal: Infections are decreased or avoided Description: INTERVENTIONS: Outcome: Progressing Problem: Hematologic - Adult Goal: Maintains hematologic stability Description: INTERVENTIONS: Outcome: Progressing Problem: Gastrointestinal - Adult Goal: Minimal or absence of nausea and vomiting Description: INTERVENTIONS: Outcome: Progressing Goal: Maintains or returns to baseline bowel function Description: INTERVENTIONS: Outcome: Progressing Goal: Maintains adequate nutritional intake Description: INTERVENTIONS: Outcome: Progressing Problem: Pain/Discomfort Goal: Patient exhibits reduced pain/discomfort as evidenced by pain scores Outcome: Progressing Goal: Patient uses pharmacological and non-pharmacological pain management strategies. Outcome: Progressing Goal: Patient verbalizes acceptable level of pain relief and ability to engage in desired activity. Outcome: Progressing Problem: Pain/Discomfort Goal: Patient verbalizes acceptable level of pain relief and ability to engage in desired activity. Outcome: Progressing Problem: Restraint Safety Goal: Free from restraint(s) Description: INTERVENTIONS: Outcome: Progressing Problem: Coping Goal: Patient/Healthcare Agent able to verbalize concerns and demonstrate effective coping strategies Description: INTERVENTIONS Outcome: Progressing * Felicity Garcia RN - 06/06/2025 1:25 PM CDT Care Coordination Discharge Note Expected Discharge Date: 06/06/2025 Discharge Plan: SNF Payor Source: Managed Care Plan Facility Name: [facility] [place] Made Aware of Special Needs: N/A RN Call Report to: [phone] RN Fax D/C Orders to: [phone] Transportation: [facility]OSS Certificate of Medical Necessity rationale: Fall risk, balance Date/time of transfer: 06/06/25 at 2 PM Trip number: [id number] Accepting MD: Dr. Reddy Completed and Signed [id number] (if applicable): N/A Physician signed: N/A Pt and family are in agreement with discharge plan Family Support (Name and Phone): Extended Emergency Contact Information Primary Emergency Contact: Mounika Rice Address: [address] [place] [address] Mobile Relation: Sister Secondary Emergency Contact: Laura Mcginnis ([facility]) Mobile Relation: Sister Transportation at Discharge: Family: READMISSION RISK SCORE is 16 at 5:02 PM 06/06/2025.: Name: Felicity Garcia RN [id number] * Jeremiah Pérez MSW - 06/06/2025 1:15 PM CDT Facility Transfer Note Actual Level of Care/Dispostion Details Actual Level of Care at Discharge: Detention - Skilled Facility Patient / Family provided post-acute services choices?: Yes Payor Source: [facility] Facility [facility] of person confirming [facility] [place] Made Aware of Special Needs (if applicable): N/A RN Call Report to: [phone] RN Fax D/C Orders to: [phone] Transportation: [facility]OSS Certificate of Medical Necessity rationale: Fall risk, balance Date/time of transfer: 06/06/25 at 2 PM Trip number: [phone] Accepting MD: Dr. Reddy Completed and Signed [id number] (if applicable): N/A Physician signed: N/A Family/Other Notified of Transfer (name/phone): Extended Emergency Contact Information Primary Emergency Contact: Mounika Rice Address: [address] [place] [address] Mobile Relation: Sister Secondary Emergency Contact: Laura Mcginnis ([facility]) Mobile Relation: Sister Authorization Skilled Care: Authorization for Transportation: Verified Qualifying Stay(Skilled Only, 3 consecutive days): NO Present hospitalization: No Past 30 days: No Patient discharged to SNF under Medicare SNF 3-day waiver? No Comments: SW faxed D/C orders, MAR, and AVS to facility. RISHI He * Maria Luisa Hernandez MSW - 06/05/2025 12:37 PM CDT Social Work Progress Note Discharge Plan Disposition: SNF Transportation: Transportation at discharge: Family Anticipated Discharge Date: 06/07/2025 Contacts: Extended Emergency Contact Information Primary Emergency Contact: Mounika Rice Address: [address] [place] [address] Mobile Relation: Sister Secondary Emergency Contact: Laura Mcginnis ([facility]) Mobile Relation: Sister Comments: Pt was discussed during MDR. Recommended next level of care is SNF. Pt has clinically accepted to [facility]. MIRIAM spoke with liaison engineer Zahra [phone] who stated insurance auth will be initiated. MIRIAM will continue to follow pt until transition to next level of care. Name/Phone number: RISHI Fay [phone] * Milagro Watson OT - 06/05/2025 11:17 AM CDT [facility] Occupational Therapy Progress Note Patient: Loretta Penn Med Record Number: [id number] Date of : 1960 Age: [age] year old PPE worn by staff: gloves PPE worn by patient: gown - patient, clean;socks - clean Tech: n/a. Patient seen as cotx with PT due to anticipated level of assist, skilled needs Recommendations: Discharge OT Discharge Recommendations: Patient would benefit from multidisciplinary therapy This recommendation is made due to ongoing OT functional needs: address functional deficits Nurse and Physical Therapist contacted regarding patient status and/or discharge plan. Activity Level: as tolerated SUBJECTIVE: Subjective: I need to go to the bathroom - agreeable to therapy Pain Assessment: Pain Assessment Pain Scale/Observation: No/denies pain Pain Rating Score #1: 0 OBJECTIVE: At start of therapy session, patient found in bed General Appearance: Adult female, resting in bed, NAD Mental Status/Cognition: Orientation Level: Disoriented to Situation;Disoriented to Place;Disoriented to Time Attention Span: Appears intact Memory: Decreased recall of recent events Following Commands: Follows one step commands with increased time (very delayed processing) Safety Judgement: Decreased awareness of need for safety Awareness of Errors: Decreased awareness of deficits Mobility: a gait belt and non-slip socks were used for all out of bed activity this date. Bed Mobility: Rolling: Minimal Assistance to Right;Moderate Assistance to Left (practiced multiple rolls L and R for toileting, pt also assists with boosting toward HOB (requires mod assist)) Balance: Sitting - Static: Good - (supported long sit in bed; able to use bedrails to pull forward to assistwith ADLs) Sitting - Dynamic: Fair + Standing - Static: Fair - Standing - Dynamic: Poor + Activities of Daily Living: Oral Facial Hygiene: Maximal Assistance (wash hair with shower cap. pt requires max cues to attemptlifting UE's to assist with task. Max to comb hair) Toileting: Maximal Assistance (min-mod to roll for bedpan; max for pericare) Splint Issued/Checked: none ACTIVITY TOLERANCE: Activity Tolerance: Complains of fatigue after standing activity/gait AM-PAC 6 Clicks Daily Activity Raw Score:: 12 TREATMENT/INTERVENTIONS: ADL training Functional transfer training Bed mobility Safety awareness EDUCATION: While performing OT, Patient was instructed in:functional mobility training, self-care training, safety awareness/fall precautions , discharge planning, use of call light Presented to patient who demonstrates Fair understanding of instructions given. INFORMED CONSENT TO TREATMENT: Plan of care including recommended therapy, goals and frequency, discussed with patient who understands and agrees to proceed. ASSESSMENT: Functional performance limited due to: limited activities of daily living, pain, decreased functional mobility, and decreased functional balance. Patient continues to benefit from skilled Occupational Therapy to achieve the following functional goals. Short Term Goals: Goal Formation With patient Patient will increase orientation to person and place Patient will perform grooming at edge of bed and with stand by assist Patient will transfer to bedside commode with moderate assist and X 2 Patient will perform supine to/from sit with minimal assist Patient will transfer sit to stand with moderate assist Assisted Goal(s): Patient to discharge to appropriate next level of inpatient care Plan: Patient continues to benefit from skilled therapy services., Continue with goals as established. If patient is discharged from the facility, this note serves as a discharge summary if further occupational therapy visits did not occur. Refer to filed flowsheet for further details. Following therapy session, patient left in bed, with bed alarm on , with call light within reach * Jennifer Burton MD - 06/05/2025 7:51 AM CDT Images from the original note were not included. 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 Pt was initially admitted to medicine service and cardiology consulted regarding severity of heart failure and other valvular issues. On admission, labs significant for BNP 2209, trop 24-->23, Na 122, K 6.1, Cr 1.48, alk phos 365, bili 7.7.Pt was shifted with insulin + dextrose, given patiromer and. She was started on IV furosemide TID for acute HFrEF. EKG showing Qtc prolongation. Pt noted to be hypoglycemic in 40s on 05/16 AM, hypoglycemia protocol initiated. Patient transferred to primary cardiology service on 05/16 d/t concern that patient may develop cardiogenic shock. On 05/17, decision was made to proceed with light sedation in order to be able to provide meds to pt given that she was not taking any orals d/t sedation; additionally Na in 121-122 range and pt would need more frequent lab draws for mgmt. On transfer to ICU, pt increasing agitated and given IV ativan. Then noted to be obtunded, intubated for airway protection. She was given hypertonic saline 2x, and was also briefly on levophed for BP support. ICU team c/s for mech vent management. Started on nitroprusside drip, but then discontinued d/t no proper BP measurements. Palliative consulted regarding family's understanding of medical conditions and difficult decision making. A line and central line placed. Sedation was discontinued on 05/19 AM, pt responding to name but not following commands. Noted to have afib with RVR overnight, proceeded with CHANCE DCCV. On CHANCE on 05/20, pt noted to have LA thrombus, DCCV was aborted. Lactic increasing on 05/20, given 250cc bolus for c/f hypovolemic shock. Patient unable to extubate d/t inability to follow commands despite weaning sedation between 05/21-05/22. Extubated on 05/24. Passed swallow study on 05/27, NG removed and patient transferred to floor. Objective Temp: [97.5 ??F (36.4 ??C)-99.7 ??F (37.6 ??C)] 97.5 ??F (36.4 ??C) Pulse: [75-94] 83 Resp: [18-24] 20 BP: (92-116)/(53-71) 104/63 Weight change: Intake/Output Summary (Last 24 hours) at 06/05/2025 0751 Last data filed at 06/04/2025 2019 Gross per 24 hour Intake 1000 ml Output 201 ml Net 799 ml Physical Exam Vitals reviewed. Cardiovascular: Pulses: Normal pulses. Pulmonary: Effort: Pulmonary effort is normal. Breath sounds: Normal breath sounds. Abdominal: Palpations: Abdomen is soft. Musculoskeletal: Right lower leg: Edema present. Left lower leg: Edema present. Skin: General: Skin is warm. Neurological: Mental Status: She is alert. Mental status is at baseline. Psychiatric: Mood and Affect: Mood normal. Scheduled Medications: Medications[1] PRN Medications: Medications[2] Continuous Infusions: Medications[3] Laboratory Data Recent Labs Component Name 06/05/2544006/04/2540906/03/25 043 WBC 4.2 4.5 4.3 HGB 13.2 13.4 13.7 HCT 40.2 39.8 43.3 PLTCOUNT 251 253 260 MCV 104.4* 100.8* 107.2* Recent Labs Component Name 05/15/25 1454 PT 29.5* INR 2.9 Recent Labs Component Name 06/05/25 04406/04/25 0410 06/03/25 0432 NA 132* 135* 137 POTASSIUM 4.5 4.6* 4.6* CL 104 104 105 CO2 23 23 23 BUN 20 20 18 CREATININE 0.79 0.85 0.80 Recent Labs Component Name 06/05/2544006/04/25 0410 06/03/25 0432 CALCIUM 8.7 8.8 9.1 PHOS 3.7 3.8 4.2 Recent Labs Component Name 06/05/25 0441 06/04/25 0410 06/03/25 0432 05/18/25 0933 05/18/25 0305 05/15/25 22505/15/252019 PROT 6.2 6.5 6.6 - - - - ALB 2.3* 2.4* 2.4* - 2.6* - - ALKPHOS 294* 306* 277* - - - - AST 43* 42* 52* - - - - ALT 26 28 32 - - - - TBILI 3.0* 3.8* 3.7* - - - 7.0* DBILI - - - - 4.4* - 4.9* - = values in this interval not displayed. No results for input(s): CKTOTAL, CKMBCK2, TROPONINI in the last 91778 hours. No results for input(s): VANCORNDM, VANCTROUGH in the last 73780 hours. Microbiology Results (Displays last 21 days for this encounter ONLY) Procedure Component Value - Date/Time SARS-COV-2 (COVID-19) RAPID [[id number]] (Normal) Collected: 05/27/25 1439 Lab Status: Final result Specimen: Microbiology from Nasopharyngeal Updated: 05/27/25 1518 COVID-19 PCR Not detected Narrative: The [employer] Xpert Xpress SARS-COV-2 has been authorized by the Food and Drug Administration (FDA) under an Emergency Use Authorization (EUA). This test has been validated in accordance with the FDA'sguidance document Policy for Diagnostic Testing in Laboratories Certified to perform High Complexity Testing under CLIA prior to Emergency Use Authorization for Coronavirus Disease-2019 during the Public Health Emergency issued on December 08, 2019. FDA independent review of this validation is pending. This test is only authorized for the duration of the time the declaration that circumstances exist justifying the authorization of emergency use of in vitro diagnostic tests for detection of SARS-COV-2 virus and/or diagnosis of COVID-19 infection under 564(b) (1) of the Act. 21 U.S.C. 360bbb-3 (b) (1), unless the authorization is terminated or revoked sooner. Fact Sheets for this EUA assay are available upon request. CULTURE SPUTUM+GRAM STAIN [[id number]] Collected: 05/19/25 1620 Lab Status: Final result Specimen: Microbiology from Sputum Updated: 05/21/25 0808 Culture Light normal oropharyngeal alisa Gram Stain Moderate Gram-negative bacilli Moderate Gram-positive cocci Light Yeast >= 25 per low power field Polymorphonuclear cells <10 per low power field Squamous epithelial cells CULTURE BLOOD [[id number]] (Normal) Collected: 05/17/25 1440 Lab Status: Final result Specimen: Blood Peripheral Updated: 05/22/25 1931 Culture No growth day 5 MRSA PCR [[id number]] (Normal) Collected: 05/17/25 1440 Lab Status: Final result Specimen: Microbiology from Nasal Updated: 05/17/25 2106 MRSA DNA by PCR Not detected Narrative: Methicillin-resistant Staphylococcus aureus (MRSA) DNA is not detected (presumed not colonized withMRSA). CULTURE BLOOD [[id number]] (Normal) Collected: 05/17/25 1436 Lab Status: Final result Specimen: Blood Peripheral Updated: 05/22/25 1931 Culture No growth day 5 Imaging No results found. Relevant labs and imaging data reviewed on [facility]. Assessment and Plan Hyperkalemia (POA: Yes) Hyperbilirubinemia (POA: Yes) Hyponatremia (POA: Yes) Transaminitis (POA: Yes) Elevated alkaline phosphatase level (POA: Yes) Acute on chronic congestive heart failure, unspecified heart failure type (HCC) (POA: Yes) Obesity with serious comorbidity, unspecified class, unspecified obesity type (POA: Yes) Demand ischemia (HCC) (POA: Yes) History of endocarditis (POA: Yes) Agitation (POA: Yes) Hypothyroidism (POA: Yes) Atrial fibrillation (HCC) (POA: Yes) Prolonged Q-T interval on ECG (POA: Yes) Pericardial effusion (HCC) (POA: Yes) Acute kidney injury (POA: Yes) Type 2 diabetes mellitus, without long-term current use of insulin (HCC) (POA: Yes) Shortness of breath (POA: Unknown) Assessment & Plan Hyperkalemia Hyponatremia Hyperkalemia, improving Continue to monitor Obesity with serious comorbidity, unspecified class, unspecified obesity type Type 2 diabetes mellitus, without long-term current use of insulin (HCC) Continue Accu-Chek, SSI, Lantus Agitation - Pt noted to be obtunded at 4AM on 05/17, was given ativan earlier In the night for agitation - EEG with generalized slowing - sedation weaned off on M - CT head 05/20 - no acute abnormalities - At baseline, pt responds to her name and is able to express what she wants/doesn't want per sister. Has very limited understanding of her medical conditions iso TBI; sisters administer her meds, and otherwise patient reportedly does ADLs. non compliant with cardiac diet at home, and has numerous admissions for HF exacerbations in past - Avoid benzos Demand ischemia (HCC) Acute on chronic congestive heart failure, unspecified heart failure type (HCC) History of endocarditis - TTE with EF of 25% on 05/27/25 Patient's blood pressure is staying soft Had recent cardiogenic/mixed shock Not volume overloaded, discontinued Bumex - Empagliflozin 10mg Continue metop succ and entresto -regarding severe TR: not to have inpt intervention but will need outpt f/u. Pt was supposed to follow with [facility], advise to keep that appointment but will refer to [facility] cardiology in case Cont on cefadroxil 500mg BID on discharge Atrial fibrillation (HCC) Prolonged Q-T interval on ECG - Cont home xarelto, had not previously been getting due to agitation - RVR resolved after digoxin load - Unable to do DCCV d/t LA thrombus PLAN: - Cont Eliquis - Will need repeat CHANCE in 3 months on discharge to reassess thrombus Hypothyroidism - Cont home levothyroxine Acute kidney injury - BUN increasing, will ctm RFP. Likely iso hypovolemia from diuresis. Diuretics held for now Shortness of breath Pericardial effusion (HCC) Resolved Hyperbilirubinemia Transaminitis Liver ultrasound; 05/17 with cirrhotic morphology and congestive hepatopathy Cholecystectomy done decades ago Will need GI follow up OP Diet: DIETARY NUTRITION SUPPLEMENTS DIET REGULAR DVT Prophylaxis: Apixaban Code Status: Full Code Electronically Signed By: Jennifer Burton MD 06/05/2025 7:51 AM [1] 0.9% NaCl 3 mL Intracatheter q8h apixaban 5 mg Oral BID busPIRone 10 mg Oral BID cefadroxil 500 mg Oral BID cyanocobalamin 500 mcg Oral QDAY empagliflozin 10 mg Oral QDAY escitalopram 10 mg Oral QDAY guaiFENesin ER 12hr 600 mg Oral q12h insulin aspart 0-18 Units Subcutaneous TID WC insulin glargine 5 Units Subcutaneous AT BEDTIME levothyroxine 75 mcg Oral QAM metoprolol succinate XL 24hr 25 mg Oral QDAY patiromer 8.4 g Oral QDAY at 1300 polyethylene glycol 3350 17 g Oral QDAY sacubitril-valsartan 0.5 tablet Oral BID senna 17.2 mg Oral QDAY vitamin D3 5,000 Units Oral QDAY [2] SALINE LOCK, INSERT AND MAINTAIN AND 0.9% NaCl AND 0.9% NaCl acetaminophen albuterol HFA dextrose IV for hypoglycemia OR dextrose IV for hypoglycemia OR glucagon glucose (Diabetic Use) gel loperamide ondansetron (disintegrating) [3] * Florentino Love RN - 06/05/2025 5:34 AM CDT Problem: Neurosensory - Adult Goal: Achieves stable or improved neurological status Description: INTERVENTIONS 06/05/2025531 by Florentino Love RN Outcome: Progressing 06/05/2025517 by Florentino Love RN Outcome: Progressing Goal: Remains free of injury related to seizures activity Description: INTERVENTIONS: 06/05/2025531 by Florentino Love RN Outcome: Progressing 06/05/2025517 by Florentino Love RN Outcome: Progressing Goal: Achieves maximal functionality and self care Description: INTERVENTIONS: 06/05/2025531 by Florentino Love RN Outcome: Progressing 06/05/2025517 by Florentino Love RN Outcome: Progressing Problem: Respiratory - Adult Goal: Achieves optimal ventilation and oxygenation Description: INTERVENTIONS: 06/05/2025531 by Florentino Love RN Outcome: Progressing 06/05/2025517 by Florentino Love RN Outcome: Progressing Problem: Cardiovascular - Adult Goal: Maintains optimal cardiac output and hemodynamic stability Description: INTERVENTIONS: 06/05/2025531 by Florentino Love RN Outcome: Progressing 06/05/2025517 by Florentino Love RN Outcome: Progressing Goal: Absence of cardiac dysrhythmias or at baseline Description: INTERVENTIONS: 06/05/2025531 by Florentino Loev RN Outcome: Progressing 06/05/2025517 by Florentino Love RN Outcome: Progressing Problem: Skin/Tissue Integrity - Adult Goal: Skin integrity remains intact Description: INTERVENTIONS: 06/05/2025531 by Florentino Love RN Outcome: Progressing 06/05/2025517 by Florentino Love RN Outcome: Progressing Goal: Incisions, wounds, or drain sites healing without S/S of infection Description: INFECTIONS: 06/05/2025531 by Florentino Love RN Outcome: Progressing 06/05/2025517 by Florentino Love RN Outcome: Progressing Goal: Oral mucous membranes remain intact Description: INTERVENTIONS: 06/05/2025531 by Florentino Love RN Outcome: Progressing 06/05/2025517 by Florentino Love RN Outcome: Progressing Problem: Neurovascular Musculoskeletal - Adult Goal: Return mobility to safest level of function Description: INTERVENTIONS: 06/05/2025531 by Florentino Love RN Outcome: Progressing 06/05/2025517 by Florentino Love RN Outcome: Progressing Goal: Maintain proper alignment of affected body part Description: INTERVENTIONS: 06/05/2025531 by Florentino Love RN Outcome: Progressing 06/05/2025517 by Florentino Love RN Outcome: Progressing Goal: Return ADL status to a safe level of function Description: INTERVENTIONS: 06/05/2025531 by Florentino Love RN Outcome: Progressing 06/05/2025517 by Florentino Love RN Outcome: Progressing Goal: Absence or reduction of edema Description: INTERVENTIONS 06/05/2025531 by Florentino Love RN Outcome: Progressing 06/05/2025517 by Florentino Love RN Outcome: Progressing Goal: Maintains or improves tissue perfusion Description: INTERVENTIONS 06/05/2025531 by Florentino Love RN Outcome: Progressing 06/05/2025517 by Florentino Love RN Outcome: Progressing Problem: Genitourinary - Adult Goal: Maintains or returns to baseline genitourinary function Description: INTERVENTIONS: 06/05/2025531 by Florentino Love RN Outcome: Progressing 06/05/2025517 by Florentino Love RN Outcome: Progressing Goal: Urinary catheter remains patent Description: INTERVENTIONS: Outcome: Progressing Problem: Infection - Adult Goal: Infections are decreased or avoided Description: INTERVENTIONS: 06/05/2025531 by Florentino Love RN Outcome: Progressing 06/05/2025517 by Florentino Love RN Outcome: Progressing Problem: Metabolic/Fluid and Electrolytes - Adult Goal: Electrolytes maintained within normal limits Description: INTERVENTIONS: 06/05/2025531 by Florentino Love RN Outcome: Progressing 06/05/2025517 by Florentino Love RN Outcome: Progressing Goal: Hemodynamic stability and optimal renal function maintained Description: INTERVENTIONS: 06/05/2025531 by Florentino Love RN Outcome: Progressing 06/05/2025517 by Florentino Love RN Outcome: Progressing Goal: Glucose maintained within prescribed range Description: INTERVENTIONS: 06/05/2025531 by Florentino Love RN Outcome: Progressing 06/05/2025517 by Florentino Love RN Outcome: Progressing Problem: Hematologic - Adult Goal: Maintains hematologic stability Description: INTERVENTIONS: 06/05/2025531 by Florentino Love RN Outcome: Progressing 06/05/2025517 by Florentino Love RN Outcome: Progressing Problem: Pain/Discomfort Goal: Patient exhibits reduced pain/discomfort as evidenced by pain scores 06/05/2025531 by Florentino Love RN Outcome: Progressing 06/05/2025517 by Florentino Love RN Outcome: Progressing Goal: Patient uses pharmacological and non-pharmacological pain management strategies. 06/05/2025531 by Florentino Love RN Outcome: Progressing 06/05/2025517 by Florentino Love RN Outcome: Progressing Goal: Patient verbalizes acceptable level of pain relief and ability to engage in desired activity. 06/05/2025531 by Florentino Love RN Outcome: Progressing 06/05/2025517 by Florentino Love RN Outcome: Progressing Problem: Restraint Safety Goal: Free from restraint(s) Description: INTERVENTIONS: 06/05/2025531 by Florentino Love RN Outcome: Progressing 06/05/2025517 by Florentino Love RN Outcome: Progressing Goal: Remains free of injury from restraints Description: INTERVENTIONS: 06/05/2025531 by Florentino Love RN Outcome: Progressing 06/05/2025517 by Florentino Love RN Outcome: Progressing Problem: Fall Risk Goal: Fall risk and fall related injury risk are minimized (interventions related to the fall risk can be found in the flowsheet documentation) 06/05/2025531 by Florentino Love RN Outcome: Progressing 06/05/2025517 by Florentino Love RN Outcome: Progressing Problem: Gastrointestinal - Adult Goal: Minimal or absence of nausea and vomiting Description: INTERVENTIONS: 06/05/2025531 by Florentino Love RN Outcome: Progressing 06/05/2025517 by Florentino Love RN Outcome: Progressing Goal: Maintains or returns to baseline bowel function Description: INTERVENTIONS: 06/05/2025531 by Florentino Love RN Outcome: Progressing 06/05/2025517 by Florentino Love RN Outcome: Progressing Goal: Maintains adequate nutritional intake Description: INTERVENTIONS: 06/05/2025531 by Florentino Love RN Outcome: Progressing 06/05/2025517 by Florentino Love RN Outcome: Progressing Problem: Anxiety Goal: Will report anxiety at manageable levels Description: INTERVENTIONS 06/05/2025531 by Florentino Love RN Outcome: Progressing 06/05/2025517 by Florentino Love RN Outcome: Progressing Problem: Coping Goal: Patient/Healthcare Agent able to verbalize concerns and demonstrate effective coping strategies Description: INTERVENTIONS 06/05/2025531 by Florentino Love RN Outcome: Progressing 06/05/2025517 by Florentino Love RN Outcome: Progressing Problem: Decision Making Goal: Patient/Healthcare Agent able to effectively weigh alternatives and participate in decision making related to treatment and care. Description: INTERVENTIONS Outcome: Progressing Problem: Behavior Goal: Pt/Family maintain appropriate behavior and adhere to behavioral management agreement, if implemented Description: INTERVENTIONS 06/05/2025531 by Florentino Love RN Outcome: Progressing 06/05/2025517 by Florentino Love RN Outcome: Progressing Problem: Depression/Self Harm Goal: Effect of psychiatric condition will be minimized and patient will be protected from self harm Description: INTERVENTIONS Outcome: Progressing Problem: Substance Abuse/Detox Goal: Will have no detox symptoms and will verbalize plan for changing drug- related behavior Description: INTERVENTIONS Outcome: Progressing Problem: Oral Intake: Inadequate oral intake Goal: Total intake will meet estimated nutrient needs 06/05/2025531 by Florentino Love RN Outcome: Progressing 06/05/2025517 by Florentino Love RN Outcome: Progressing * Maria Luisa Hernandez MSW - 06/04/2025 4:34 PM CDT Social Work Progress Note Discharge Plan Disposition: SNF Transportation: Transportation at discharge: Family Anticipated Discharge Date: 06/05/2025 Contacts: Extended Emergency Contact Information Primary Emergency Contact: Mounika Rice [address]: [address] [place] [address] [place] Relation: Sister Secondary Emergency Contact: Laura Mcginnis (POA) Mobile Relation: Sister Comments: Pt was discussed during MDR. Recommended next level of care is SNF. [facility]. Family's choice is [facility]. SW followed up with liaison Zahra [phone] who stated she is waiting to hear back from the DON and will follow up with SW. SW will continue to follow pt until transition to next level of care. Name/Phone number: RISHI Fay [phone] * Stephanie Domingo, PHONG/LD - 06/04/2025 2:40 PM CDT BRIEF SYNOPSIS: Nutrition Risk Identified but does not meet malnutrition criteria. Nutrition Plan: Current diet order: Regular;Fluid Restriction (1500 mL) Current supplement order: Ensure HP BID (160 kcal, 16 gm protein each) Recommendation to Physician: Fluid and electrolyte management Meal set up assistance and encouragement during meal time Discharge Needs: TBD CLINICAL NUTRITION ASSESSMENT: Patient seen for reassessment per protocol. Evaluation completed remote today. Patient disoriented and confused per flowsheet, not appropriate for phone interview at this time. Some cognitive deficits at baseline in setting of TBI per MD. Fair appetite and PO intake. P.O.Intake for the past 48 hrs:Percent Meal Eaten (%) Av % Min: 0 % Max: 100 %. Receiving Ensure HP BID, no supplement intakedata to assess. Will continue current supplement plan at this time. Labs reviewed: Na 135, K 4.6, no repletion ordered per DEC. Receiving daily Vitamin D supplementation. Last BM 06/03, bowel regimen daily Mitalax and senna - both last given 06/02 and loperamide $ times daily PRN - given twice today. 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 BMI Range: Severely Obese Class 2 IBW/lb (Calculated) Female: 130 Recent Weights/Methods 05/22/2025 0400 05/23/2025 0330 05/23/2025 2330 05/27/2025 0400 05/28/2025 0400 05/28/2025 0752 05/29/2025 0400 06/03/2025 0400 Weight: 107.5 kg (237 lb) 106.5 kg (234 lb 12.8 oz) 104.6 kg (230 lb 11.2 oz) 104.1 kg (229 lb 6.4 oz) 104.1 kg (229 lb 6.4 oz) 103.9 kg (229 lb) 103.8 kg (228 lb 14.4 oz) 99.4 kg (219 lb 1.6 oz) Weight Method : Bed scale Bed scale Bed scale Bed scale Bed scale -- Bed scale Bed scale UBW: unknown Unintentional weight change: weight continues trending down during admit Net IO Since Admission: -13,055.76 mL [06/04/25 1442] Current tube feeding order: discontinued PO INTAKE Current diet order: Regular;Fluid Restriction (1500 mL) Nutrition recommendation: agree with current nutrition order Food Allergies: No known food allergies Last Percent Meal Eaten (%): 100 % (06/03/25 1644) 48 hr PO INTAKE Percent Meal Eaten (%) Av % Min: 0 % Max: 100 % Current supplement order: Ensure HP BID (160 kcal, 16 gm protein each) None Pain affecting intake: No Chewing/Swallowing: None GI Concerns: None Stools: Unmeasured Stool Occurrence: 1 (small) (06/03/25 0430) Stool Appearance : Soft (06/03/25 043) Skin/Wound: exceptions (bruising and redness) Estimated Needs: KCAL: 3539-1627 (25-30 kcal/kg IBW) Protein (g): 71-89 (1.2-1.5 gm/kg IBW) Fluid (ml): (1-2 L/day or fluid per MD) Needs based on: Kcal/kg- (Comment) (IBW 59 kg) Recommended Access Route: PO Labs: Recent Labs Component Name 06/04/25 0410 06/03/25 0432 06/02/25 0559 NA 135* 137 137 POTASSIUM 4.6* 4.6* 5.2* CO2 23 23 25 BUN 20 18 22 CREATININE 0.85 0.80 0.87 GLUCOSE 111* 76 127* CALCIUM 8.8 9.1 9.2 ALT 28 32 34 ALKPHOS 306* 277* 265* AST 42* 52* 50* EGFR 77* 83* 75* Recent Labs Component Name 06/04/25 0410 06/03/25 0432 06/02/25 0559 PHOS 3.8 4.2 4.0 Recent Labs Component Name 06/04/25 0410 06/03/25 0432 06/02/25 0559 MAGNESIUM 1.8 2.0 2.0 Recent Labs Component Name 06/04/25 0410 06/03/25 0432 06/02/25 0559 HGB 13.4 13.7 13.5 HCT 39.8 43.3 42.2 Recent Labs Component Name 05/16/25 0632 HGBA1C 7.2* No data found. MEDICATIONS FOR CURRENT ENCOUNTER: SCHEDULED MEDICATIONS: 0.9% NaCl injection 3 mL, Intracatheter, q8h apixaban (Eliquis) tablet 5 mg, Oral, BID busPIRone (Buspar) tablet 10 mg, Oral, BID cefadroxil (Duricef) capsule 500 mg, Oral, BID cyanocobalamin (Vitamin B-12) tablet 500 mcg, Oral, QDAY empagliflozin (Jardiance) tablet 10 mg, Oral, QDAY escitalopram (Lexapro) tablet 10 mg, Oral, QDAY guaiFENesin ER 12hr (Mucinex) tablet 600 mg, Oral, q12h insulin aspart (NovoLOG) pen 0-18 Units, Subcutaneous, TID WC insulin glargine (Lantus) pen 5 Units, Subcutaneous, AT BEDTIME levothyroxine (Synthroid) tablet 75 mcg, Oral, QAM metoprolol succinate XL 24hr (Toprol XL) tablet 25 mg, Oral, QDAY patiromer (Veltassa) packet 8.4 g, Oral, QDAY at 1300 polyethylene glycol 3350 (Miralax) packet 17 g, Oral, QDAY sacubitril-valsartan (Entresto) 24-26 MG tablet 0.5 tablet, Oral, BID senna (Senokot) tablet 17.2 mg, Oral, QDAY vitamin D3 (Cholecalciferol) tablet 5,000 Units, Oral, QDAY CONTINUOUS MEDICATIONS: PRN MEDICATIONS: Or Or 0.9% NaCl injection 1-10 mL, Intracatheter, PRN acetaminophen (Tylenol) tablet 500 mg, Oral, q6h PRN albuterol HFA (Proventil; Ventolin; Proair) 108 (90 Base) MCG/ACT inhaler 2 puff, Inhalation, q6h PRN dextrose IV 12.5 g, Intravenous, PRN dextrose IV 25 g, Intravenous, PRN glucagon (Glucagen) injection 1 mg, Subcutaneous, PRN glucose (Diabetic Use) oral gel, Oral, PRN loperamide (Imodium) capsule 2 mg, Oral, 4X/day PRN ondansetron (disintegrating) (Zofran ODT) tablet 4 mg, Oral, q6h PRN Edema LUE Edema: Non-pitting (06/02/251954) RLE Edema: Mild pitting, slight indentation (06/02/251954) LLE Edema: Mild pitting, slight indentation (06/02/251954) Nutrition Diagnostic Statement: Inadequate oral intake related to:: decreased appetite as evidencedby:: oral intake insufficient to meet estimated requirements Nutrition Diagnostic Statement Progress: Nutrition problem continues Nutrition Intervention: Meals and snacks:;Medical Food Supplements:;Collaboration with other providers;Feeding assistance: Education needed: Consistent Carb Education Provided: Handout Provided (05/28/25 1000) Expected level of compliance: Questionable Monitoring: Wt, po intake, diet tolerance, supplement intake and tolerance, skin integrity, GI symptoms, nutrition related labs Monitor per nutrition guidelines. Risk Level: Moderate Evaluation: Nutrition Goal: Total intake will meet estimated nutrient needs Nutrition Goal Timeframe: Throughout stay Nutrition Goal Progress: Continue with current goal Stephanie Domingo, MS, RD, LDN, CNSC Certified Nutrition Support Clinician * Ynes Muniz RN - 06/04/2025 11:43 AM CDT Problem: Neurosensory - Adult Goal: Achieves stable or improved neurological status Description: INTERVENTIONS Outcome: Progressing Goal: Remains free of injury related to seizures activity Description: INTERVENTIONS: Outcome: Progressing Goal: Achieves maximal functionality and self care Description: INTERVENTIONS: Outcome: Progressing Problem: Respiratory - Adult Goal: Achieves optimal ventilation and oxygenation Description: INTERVENTIONS: Outcome: Progressing Problem: Cardiovascular - Adult Goal: Maintains optimal cardiac output and hemodynamic stability Description: INTERVENTIONS: Outcome: Progressing Goal: Absence of cardiac dysrhythmias or at baseline Description: INTERVENTIONS: Outcome: Progressing Problem: Skin/Tissue Integrity - Adult Goal: Skin integrity remains intact Description: INTERVENTIONS: Outcome: Progressing Goal: Incisions, wounds, or drain sites healing without S/S of infection Description: INFECTIONS: Outcome: Progressing Goal: Oral mucous membranes remain intact Description: INTERVENTIONS: Outcome: Progressing Problem: Neurovascular Musculoskeletal - Adult Goal: Return mobility to safest level of function Description: INTERVENTIONS: Outcome: Progressing Goal: Maintain proper alignment of affected body part Description: INTERVENTIONS: Outcome: Progressing Goal: Return ADL status to a safe level of function Description: INTERVENTIONS: Outcome: Progressing Goal: Absence or reduction of edema Description: INTERVENTIONS Outcome: Progressing Goal: Maintains or improves tissue perfusion Description: INTERVENTIONS Outcome: Progressing Problem: Genitourinary - Adult Goal: Maintains or returns to baseline genitourinary function Description: INTERVENTIONS: Outcome: Progressing Goal: Urinary catheter remains patent Description: INTERVENTIONS: Outcome: Progressing Problem: Infection - Adult Goal: Infections are decreased or avoided Description: INTERVENTIONS: Outcome: Progressing Problem: Metabolic/Fluid and Electrolytes - Adult Goal: Electrolytes maintained within normal limits Description: INTERVENTIONS: Outcome: Progressing Goal: Hemodynamic stability and optimal renal function maintained Description: INTERVENTIONS: Outcome: Progressing Goal: Glucose maintained within prescribed range Description: INTERVENTIONS: Outcome: Progressing Problem: Hematologic - Adult Goal: Maintains hematologic stability Description: INTERVENTIONS: Outcome: Progressing Problem: Pain/Discomfort Goal: Patient exhibits reduced pain/discomfort as evidenced by pain scores Outcome: Progressing Goal: Patient uses pharmacological and non-pharmacological pain management strategies. Outcome: Progressing Goal: Patient verbalizes acceptable level of pain relief and ability to engage in desired activity. Outcome: Progressing Problem: Restraint Safety Goal: Free from restraint(s) Description: INTERVENTIONS: Outcome: Progressing Goal: Remains free of injury from restraints Description: INTERVENTIONS: Outcome: Progressing Problem: Fall Risk Goal: Fall risk and fall related injury risk are minimized (interventions related to the fall risk can be found in the flowsheet documentation) Outcome: Progressing Problem: Gastrointestinal - Adult Goal: Minimal or absence of nausea and vomiting Description: INTERVENTIONS: Outcome: Progressing Goal: Maintains or returns to baseline bowel function Description: INTERVENTIONS: Outcome: Progressing Goal: Maintains adequate nutritional intake Description: INTERVENTIONS: Outcome: Progressing Problem: Anxiety Goal: Will report anxiety at manageable levels Description: INTERVENTIONS Outcome: Progressing Problem: Coping Goal: Patient/Healthcare Agent able to verbalize concerns and demonstrate effective coping strategies Description: INTERVENTIONS Outcome: Progressing Problem: Decision Making Goal: Patient/Healthcare Agent able to effectively weigh alternatives and participate in decision making related to treatment and care. Description: INTERVENTIONS Outcome: Progressing Problem: Behavior Goal: Pt/Family maintain appropriate behavior and adhere to behavioral management agreement, if implemented Description: INTERVENTIONS Outcome: Progressing Problem: Depression/Self Harm Goal: Effect of psychiatric condition will be minimized and patient will be protected from self harm Description: INTERVENTIONS Outcome: Progressing Problem: Substance Abuse/Detox Goal: Will have no detox symptoms and will verbalize plan for changing drug- related behavior Description: INTERVENTIONS Outcome: Progressing Problem: Oral Intake: Inadequate oral intake Goal: Total intake will meet estimated nutrient needs Outcome: Progressing Problem: Balance Goal: LTG - Patient will maintain standing and sitting balance to allow for completion of daily activities Outcome: Progressing Goal: LTG - Patient will demonstrate Intervention to enhance balance for safe completion of daily activities Outcome: Progressing * Aleja Oewns SLP - 06/04/2025 10:25 AM CDT [facility] Physical Medicine and Rehabilitation Swallow Treatment Patient: Loretta Penn Med Record Number: [id number] Date of : 1960 Age: [age] year old PPE: PPE worn by staff: gloves Impressions: Patient is requesting diet advance to regular solids. Pt accepted trials of cracker w/mildly prolonged but functional mastication (pt is edentulous). No overt s/s aspiration were appreciated. Would recommend pt advance to a regular consistency diet. No further ST needs are indicated at this time. Recommendations: Diet Liquids Recommendation: Thin/ Thin (0) Diet Solids Recommendation: Regular/Regular (7) Recommended Form of Meds: As Tolerated Compensatory Swallowing Strategies: 90 Degrees elevation for all oral intake Recommended Tests/Consults: None Discharge Recommendations: No further ST needs anticipated at discharge. SUBJECTIVE: What matters most to this patient?: To eat regular foods Pain Assessment: Pain Assessment Pain Scale/Observation: No/denies pain OBJECTIVE: Level of Consciousness: alert Orientation Level: oriented to person Positioning: Upright in bed Respiratory Status: Room air Swallow Trials: Thin Liquid: Presentation: Straw-Self Fed Oral: Within Functional Limits Pharyngeal: Within Functional LImits Solid: Presentation: Self-Fed Oral: (Mildly prolonged mastication d/t edentulous status but functional overall) Pharyngeal: Within Functional Limits Assessment: Risk For Aspiration: None Primary Diagnostic Impression - Oral: No dysphagia Primary Diagnostic Impression - Pharyngeal: No dysphagia suspected Treatment/Education/Interventions: While performing 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 Patient demonstrated Fair understanding of instructions given. Physician contacted regarding results of treatment session. Guidelines were posted on Pt's whiteboard and head of bed: n/a INFORMED CONSENT TO TREATMENT: Plan of care including recommended therapy, goals and frequency, discussed with patient who understands and agrees to proceed. Short Term Goals Patient will tolerate recommended food and liquid consistencies without clinical signs of aspiration. Assisted Goal (s): Patient to be independent/baseline with functional mobility and self care and be able to safely discharge to prior level of care. Plan: Discharge ST * Teri Willis, PT - 06/04/2025 9:06 AM CDT [facility] Physical Therapy Progress Note Patient: Loretta Penn Med Record Number: [id number] Date of : 1960 Age: [age] year old PPE worn by staff: gloves PPE worn by patient: gown - patient, clean;socks - clean Tech: Delfina Recommendations: Discharge PT Discharge Recommendations: Patient would benefit from multidisciplinary therapy This recommendation is made due to ongoing PT functional needs: address care for self in the home;address functional deficits Recommended Transportation Method: Stretcher/Ambulance Patient is being recommended for post acute care, therefore DME recommendations will be made at thenext level of care. SUBJECTIVE: Subjective: I don't want to eat. Patient agreeable to PT services. PATIENT GOALS / WHAT MATTERS MOST TO THE PATIENT: Patient's Primary Concern: eggs Pain Assessment: Pain Assessment Pain Scale/Observation: 0-10 Pain Rating Score #1: 3 Sedation Level: 1-Awake and alert Pain Location : Back Pain Descriptors: Aching Non-Pharmacological Intervention: Rest;Reposition PRECAUTIONS: Weight Bearing Status: (No WBing restrictions) Activity Level: Activity as Tolerated OBJECTIVE: At start of therapy session, patient found in bed General Appearance: Patient is a 64 year old female. No acute distress noted at PT entry. Observations: Patient upset regarding breakfast so PT assisted w/ breakfast order. Patient requiring 2 person assist for transfers however improvement in session by ambulating 10ft w/ assist of 1 w/ RW. Mental Status/Cognition: Level of Consciousness-Adult: Responds to voice Orientation Level: Disoriented to Situation;Disoriented to Time Cognition: Confused;Poor attention or concentration Mobility: A gait belt and non-slip socks were used for all out of bed activity this date. Bed Mobility: Supine to Sit: Moderate Assistance with HOB in semi-fowlers position Sit to Supine: Minimal Assistance Transfers: Sit to Stand: Moderate Assistance;X 2 Stand to Sit: Moderate Assistance Transfer Device: Gait belt;Walker-2 Wheeled Gait: Weight Bearing Status: (No WBing restrictions) Distance Ambulated (ft): 10 FEET Ambulation: Assistive Device: Gait Belt;Walker-2 Wheeled Ambulation: Level of Assistance: Moderate Assistance Ambulation: Gait Deviations: Antalgic;Diamante - Decreased;Increased Trunk Flexion;Shuffling gait;Hip/knee flexion during swing phase-- decreased Balance: Balance Scales/Tests Used: Sitting: Static/Dynamic;Standing: Static/Dynamic Sitting - Static: Good - Sitting - Dynamic: Fair + Standing - Static: Fair - Standing - Dynamic: Poor + ACTIVITY TOLERANCE: Activity Tolerance: Complains of fatigue after standing activity/gait TREATMENT/INTERVENTIONS: bed mobility training, transfer training, and gait training AM-PAC 6 Clicks Mobility Raw Score:: 9 EDUCATION: While performing PT, Patient was instructed in:functional mobility training, self-care training, safety awareness/fall precautions , use of adaptive equipment, discharge planning Presented to patient who demonstrates Fair understanding of instructions given. ASSESSMENT: Patient would benefit from additional Physical Therapy sessions to achieve the following functionalgoals to enhance independence. Short Term Goals: Goal Formation Patient unable to participate in goal formulation Patient will perform bed mobility with minimal assist and X 1 (updated 06/04) Patient will transfer sit to/from stand with moderate assist and X 1 Patient will transfer bed to/from chair with moderate assist and X 1 Patient will ambulate 125 feet with moderate assist and X 1 (updated 06/04) Clerk Cashier Goal(s): Patient to discharge to appropriate next level of inpatient care. INFORMED CONSENT TO TREATMENT: Plan of care including recommended therapy, goals and frequency, discussed with patient who understands and agrees to proceed. Equipment Issued: gait belt and assistive device Plan: Patient continues to benefit from skilled therapy services., Continue with goals as established., Goals updated this date. If patient is discharged from the facility, this note serves as a discharge summary if further physical therapy visits did not occur. Refer to filed flowsheet for further details. Following therapy session, patient left in bed, with call light within reach, with RN, Alysa aware, with therapy cues visible on white board, all lines/tubes intact. * Jennifer Burton MD - 06/04/2025 8:08 AM CDT Images from the original note were not included. [facility] Internal Medicine Progress Note Name: Loretta Calderon [place] Room/Bed: 7730/1 : 1960 64 year old PCP: KYA Salinas Admit Date/Time: 05/15/2025 6:17 PM LOS: 20 Subjective Interval update: No acute events overnight Not in acute distress Denied any particular complaints Hospital course: 64 year-old female with past medical history significant for HFrEF (EF 25% 02/2025), severe TR, 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 Pt was initially admitted to medicine service and cardiology consulted regarding severity of heart failure and other valvular issues. On admission, labs significant for BNP 2209, trop 24-->23, Na 122, K 6.1, Cr 1.48, alk phos 365, bili 7.7.Pt was shifted with insulin + dextrose, given patiromer and. She was started on IV furosemide TID for acute HFrEF. EKG showing Qtc prolongation. Pt noted to be hypoglycemic in 40s on 05/16 AM, hypoglycemia protocol initiated. Patient transferred to primary cardiology service on 05/16 d/t concern that patient may develop cardiogenic shock. On 05/17, decision was made to proceed with light sedation in order to be able to provide meds to pt given that she was not taking any orals d/t sedation; additionally Na in 121-122 range and pt would need more frequent lab draws for mgmt. On transfer to ICU, pt increasing agitated and given IV ativan. Then noted to be obtunded, intubated for airway protection. She was given hypertonic saline 2x, and was also briefly on levophed for BP support. ICU team c/s for mech vent management. Started on nitroprusside drip, but then discontinued d/t no proper BP measurements. Palliative consulted regarding family's understanding of medical conditions and difficult decision making. A line and central line placed. Sedation was discontinued on 05/19 AM, pt responding to name but not following commands. Noted to have afib with RVR overnight, proceeded with CHANCE DCCV. On CHANCE on 05/20, pt noted to have LA thrombus, DCCV was aborted. Lactic increasing on 05/20, given 250cc bolus for c/f hypovolemic shock. Patient unable to extubate d/t inability to follow commands despite weaning sedation between 05/21-05/22. Extubated on 05/24. Passed swallow study on 05/27, NG removed and patient transferred to floor. Objective Temp: [98.1 ??F (36.7 ??C)-101.8 ??F (38.8 ??C)] 99.7 ??F (37.6 ??C) Pulse: [77-118] 118 Resp: [18-20] 18 BP: (109-139)/(65-114) 117/65 Weight change: Intake/Output Summary (Last 24 hours) at 06/04/2025 0808 Last data filed at 06/04/2025 0620 Gross per 24 hour Intake 240 ml Output 1500 ml Net -1260 ml Physical Exam Vitals reviewed. Cardiovascular: Pulses: Normal pulses. Pulmonary: Effort: Pulmonary effort is normal. Breath sounds: Normal breath sounds. Abdominal: Palpations: Abdomen is soft. Musculoskeletal: Right lower leg: Edema present. Left lower leg: Edema present. Skin: General: Skin is warm. Neurological: Mental Status: She is alert. Mental status is at baseline. Psychiatric: Mood and Affect: Mood normal. Scheduled Medications: Medications[1] PRN Medications: Medications[2] Continuous Infusions: Medications[3] Laboratory Data Recent Labs Component Name 06/04/250 06/03/25 0432 06/02/25 0559 WBC 4.5 4.3 5.0 HGB 13.4 13.7 13.5 HCT 39.8 43.3 42.2 PLTCOUNT 253 260 290 MCV 100.8* 107.2* 105.8* Recent Labs Component Name 05/15/25 1454 PT 29.5* INR 2.9 Recent Labs Component Name 06/04/25 0410 06/03/25 0432 06/02/25 0559 NA 135* 137 137 POTASSIUM 4.6* 4.6* 5.2* CL 104 105 104 CO2 23 23 25 BUN 20 18 22 CREATININE 0.85 0.80 0.87 Recent Labs Component Name 06/04/25 0410 06/03/25 0432 06/02/25 0559 CALCIUM 8.8 9.1 9.2 PHOS 3.8 4.2 4.0 Recent Labs Component Name 06/04/25 0410 06/03/25 0432 06/02/25 0559 05/18/25 0933 05/18/25 0305 05/15/25 2257 05/15/25 2020 PROT 6.5 6.6 6.4 - - - - ALB 2.4* 2.4* 2.4* - 2.6* - - ALKPHOS 306* 277* 265* - - - - AST 42* 52* 50* - - - - ALT 28 32 34 - - - - TBILI 3.8* 3.7* 3.9* - - - 7.0* DBILI - - - - 4.4* - 4.9* - = values in this interval not displayed. No results for input(s): CKTOTAL, CKMBCK2, TROPONINI in the last 74429 hours. No results for input(s): VANCORNDM, VANCTROUGH in the last 28998 hours. Microbiology Results (Displays last 21 days for this encounter ONLY) Procedure Component Value - Date/Time SARS-COV-2 (COVID-19) RAPID [[id number]] (Normal) Collected: 05/27/25 1439 Lab Status: Final result Specimen: Microbiology from Nasopharyngeal Updated: 05/27/25 1518 COVID-19 PCR Not detected Narrative: The [employer] Xpert Xpress SARS-COV-2 has been authorized by the Food and Drug Administration (FDA) under an Emergency Use Authorization (EUA). This test has been validated in accordance with the FDA'sguidance document Policy for Diagnostic Testing in Laboratories Certified to perform High Complexity Testing under CLIA prior to Emergency Use Authorization for Coronavirus Disease-2019 during the Public Health Emergency issued on December 08, 2019. FDA independent review of this validation is pending. This test is only authorized for the duration of the time the declaration that circumstances exist justifying the authorization of emergency use of in vitro diagnostic tests for detection of SARS-COV-2 virus and/or diagnosis of COVID-19 infection under 564(b) (1) of the Act. 21 U.S.C. 360bbb-3 (b) (1), unless the authorization is terminated or revoked sooner. Fact Sheets for this EUA assay are available upon request. CULTURE SPUTUM+GRAM STAIN [[id number]] Collected: 05/19/25 1620 Lab Status: Final result Specimen: Microbiology from Sputum Updated: 05/21/25 0808 Culture Light normal oropharyngeal alisa Gram Stain Moderate Gram-negative bacilli Moderate Gram-positive cocci Light Yeast >= 25 per low power field Polymorphonuclear cells <10 per low power field Squamous epithelial cells CULTURE BLOOD [[id number]] (Normal) Collected: 05/17/25 1440 Lab Status: Final result Specimen: Blood Peripheral Updated: 05/22/25 1931 Culture No growth day 5 MRSA PCR [[id number]] (Normal) Collected: 05/17/25 1440 Lab Status: Final result Specimen: Microbiology from Nasal Updated: 05/17/25 2106 MRSA DNA by PCR Not detected Narrative: Methicillin-resistant Staphylococcus aureus (MRSA) DNA is not detected (presumed not colonized withMRSA). CULTURE BLOOD [[id number]] (Normal) Collected: 05/17/25 1436 Lab Status: Final result Specimen: Blood Peripheral Updated: 05/22/25 1931 Culture No growth day 5 Imaging No results found. Relevant labs and imaging data reviewed on Epic. Assessment and Plan Hyperkalemia (POA: Yes) Hyperbilirubinemia (POA: Yes) Hyponatremia (POA: Yes) Transaminitis (POA: Yes) Elevated alkaline phosphatase level (POA: Yes) Acute on chronic congestive heart failure, unspecified heart failure type (HCC) (POA: Yes) Obesity with serious comorbidity, unspecified class, unspecified obesity type (POA: Yes) Demand ischemia (HCC) (POA: Yes) History of endocarditis (POA: Yes) Agitation (POA: Yes) Hypothyroidism (POA: Yes) Atrial fibrillation (HCC) (POA: Yes) Prolonged Q-T interval on ECG (POA: Yes) Pericardial effusion (HCC) (POA: Yes) Acute kidney injury (POA: Yes) Type 2 diabetes mellitus, without long-term current use of insulin (HCC) (POA: Yes) Shortness of breath (POA: Unknown) Assessment & Plan Hyperkalemia Hyponatremia Hyponatremia, resolved Hyperkalemia, improving Continue to monitor Obesity with serious comorbidity, unspecified class, unspecified obesity type Type 2 diabetes mellitus, without long-term current use of insulin (HCC) Continue Accu-Chek, SSI, Lantus Agitation - Pt noted to be obtunded at 4AM on 05/17, was given ativan earlier In the night for agitation - EEG with generalized slowing - sedation weaned off on M - CT head 05/20 - no acute abnormalities - At baseline, pt responds to her name and is able to express what she wants/doesn't want per sister. Has very limited understanding of her medical conditions iso TBI; sisters administer her meds, and otherwise patient reportedly does ADLs. non compliant with cardiac diet at home, and has numerous admissions for HF exacerbations in past - Avoid benzos Demand ischemia (HCC) Acute on chronic congestive heart failure, unspecified heart failure type (HCC) History of endocarditis - TTE with EF of 25% on 05/27/25 Patient's blood pressure is staying soft Had recent cardiogenic/mixed shock Not volume overloaded, discontinued Bumex - Empagliflozin 10mg Continue metop succ and entresto -regarding severe TR: not to have inpt intervention but will need outpt f/u. Pt was supposed to follow with [facility], advise to keep that appointment but will refer to [facility] cardiology in case Continue home cefadroxil; (cont on cefadroxil 500mg BID on discharge) Atrial fibrillation (HCC) Prolonged Q-T interval on ECG - Cont home xarelto, had not previously been getting due to agitation - RVR resolved after digoxin load - Unable to do DCCV d/t LA thrombus PLAN: - Cont Eliquis - Will need repeat CHANCE in 3 months on discharge to reassess thrombus Hypothyroidism - Cont home levothyroxine Acute kidney injury - BUN increasing, will ctm RFP. Likely iso hypovolemia from diuresis. Diuretics held for now Shortness of breath Pericardial effusion (HCC) Resolved Hyperbilirubinemia Transaminitis Liver ultrasound; 05/17 with cirrhotic morphology and congestive hepatopathy Cholecystectomy done decades ago Will need GI follow up OP Diet: DIETARY NUTRITION SUPPLEMENTS DIET MODIFIED CONSISTENCY DVT Prophylaxis: Apixaban Code Status: Full Code Electronically Signed By: Jennifer Burton MD 06/04/2025 8:08 AM [1] 0.9% NaCl 3 mL Intracatheter q8h apixaban 5 mg Oral BID busPIRone 10 mg Oral BID cefadroxil 500 mg Oral BID cyanocobalamin 500 mcg Oral QDAY empagliflozin 10 mg Oral QDAY escitalopram 10 mg Oral QDAY guaiFENesin ER 12hr 600 mg Oral q12h insulin aspart 0-18 Units Subcutaneous TID WC insulin glargine 5 Units Subcutaneous AT BEDTIME levothyroxine 75 mcg Oral QAM metoprolol succinate XL 24hr 25 mg Oral QDAY patiromer 8.4 g Oral QDAY at 1300 polyethylene glycol 3350 17 g Oral QDAY sacubitril-valsartan 0.5 tablet Oral BID senna 17.2 mg Oral QDAY vitamin D3 5,000 Units Oral QDAY [2] SALINE LOCK, INSERT AND MAINTAIN AND 0.9% NaCl AND 0.9% NaCl acetaminophen albuterol HFA dextrose IV for hypoglycemia OR dextrose IV for hypoglycemia OR glucagon glucose (Diabetic Use) gel loperamide ondansetron (disintegrating) [3] * Merry Morejon, PT - 06/03/2025 3:33 PM CDT [facility] Department of Physical Medicine & Rehabilitation Progress Note Patient: Loretta Penn Med Record Number: [id number] Date of : 1960 Age: [age] year old 06/03/25 1533 Missed Visit Missed Visit Other (Comment) (PT visit attempt; patient eating; requests PT return at a later time; PT will continue to follow) * Felicity Garcia RN - 06/03/2025 3:10 PM CDT Care Coordination Progress Note Expected Discharge Date: 06/05/2025 Discharge Plan: SNF Discussed in MDR. Pt has been denied [place] needs SNF choices MIRIAM Maria Luisa will meet with pt to offer choices. Pt is ready to transition to the next level of care. Family Support (Name and Phone): Extended Emergency Contact Information Primary Emergency Contact: Mounika Rice Address: [address] [place] [address] of [place] Mobile Relation: Sister Secondary Emergency Contact: Laura Mcginnis (A) Mobile Relation: Sister Transportation at Discharge: Family: READMISSION RISK SCORE is 16 at 5:11 PM 06/04/2025.: Name: Felicity Garcia RN * Jennifer Burton MD - 06/03/2025 2:28 PM CDT Images from the original note were not included. 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 Pt was initially admitted to medicine service and cardiology consulted regarding severity of heart failure and other valvular issues. On admission, labs significant for BNP 2209, trop 24-->23, Na 122, K 6.1, Cr 1.48, alk phos 365, bili 7.7.Pt was shifted with insulin + dextrose, given patiromer and. She was started on IV furosemide TID for acute HFrEF. EKG showing Qtc prolongation. Pt noted to be hypoglycemic in 40s on 05/16 AM, hypoglycemia protocol initiated. Patient transferred to primary cardiology service on 05/16 d/t concern that patient may develop cardiogenic shock. On 05/17, decision was made to proceed with light sedation in order to be able to provide meds to pt given that she was not taking any orals d/t sedation; additionally Na in 121-122 range and pt would need more frequent lab draws for mgmt. On transfer to ICU, pt increasing agitated and given IV ativan. Then noted to be obtunded, intubated for airway protection. She was given hypertonic saline 2x, and was also briefly on levophed for BP support. ICU team [facility]. Started on nitroprusside drip, but then discontinued d/t no proper BP measurements. Palliative consulted regarding family's understanding of medical conditions and difficult decision making. A line and central line placed. Sedation was discontinued on 05/19 AM, pt responding to name but not following commands. Noted to have afib with RVR overnight, proceeded with CHANCE DCCV. On CHANCE on 05/20, pt noted to have LA thrombus, DCCV was aborted. Lactic increasing on 05/20, given 250cc bolus for c/f hypovolemic shock. Patient unable to extubate d/t inability to follow commands despite weaning sedation between 05/21-05/22. Extubated on 05/24. Passed swallow study on 05/27, NG removed and patient transferred to floor. Objective Temp: [97.5 ??F (36.4 ??C)-99.3 ??F (37.4 ??C)] 98.1 ??F (36.7 ??C) Pulse: [77-98] 89 Resp: [18-20] 20 BP: (95-147)/(56-134) 114/73 Weight change: Intake/Output Summary (Last 24 hours) at 06/03/2025 1428 Last data filed at 06/03/2025 1331 Gross per 24 hour Intake 60 ml Output 550 ml Net -490 ml Physical Exam Vitals reviewed. Cardiovascular: Pulses: Normal pulses. Pulmonary: Effort: Pulmonary effort is normal. Breath sounds: Normal breath sounds. Abdominal: Palpations: Abdomen is soft. Musculoskeletal: Right lower leg: Edema present. Left lower leg: Edema present. Skin: General: Skin is warm. Neurological: Mental Status: She is alert. Mental status is at baseline. Psychiatric: Mood and Affect: Mood normal. Scheduled Medications: Medications[1] PRN Medications: Medications[2] Continuous Infusions: Medications[3] Laboratory Data Recent Labs Component Name 06/03/25 0432 06/02/25 0559 06/01/25 0405 WBC 4.3 5.0 5.0 HGB 13.7 13.5 13.2 HCT 43.3 42.2 40.8 PLTCOUNT 260 290 293 MCV 107.2* 105.8* 104.9* Recent Labs Component Name 05/15/25 1454 PT 29.5* INR 2.9 Recent Labs Component Name 06/03/25 0432 06/02/25 0559 06/01/25 0406 NA 137 137 139 POTASSIUM 4.6* 5.2* 4.7* CL 105 104 105 CO2 23 25 27 BUN 18 22 28* CREATININE 0.80 0.87 0.92 Recent Labs Component Name 06/03/25 0432 06/02/25 0559 06/01/25 0406 CALCIUM 9.1 9.2 9.2 PHOS 4.2 4.0 4.7 Recent Labs Component Name 06/03/25 0432 06/02/25 0559 06/01/25 0406 05/18/25 0933 05/18/25 0305 05/15/25225605/15/252019 PROT 6.6 6.4 6.4 - - - - ALB 2.4* 2.4* 2.4* - 2.6* - - ALKPHOS 277* 265* 249* - - - - AST 52* 50* 56* - - - - ALT 32 34 32 - - - - TBILI 3.7* 3.9* 3.9* - - - 7.0* DBILI - - - - 4.4* - 4.9* - = values in this interval not displayed. No results for input(s): CKTOTAL, CKMBCK2, TROPONINI in the last 98735 hours. No results for input(s): VANCORNDM, VANCTROUGH in the last 43439 hours. Microbiology Results (Displays last 21 days for this encounter ONLY) Procedure Component Value - Date/Time SARS-COV-2 (COVID-19) RAPID [[id number]] (Normal) Collected: 05/27/25 1439 Lab Status: Final result Specimen: Microbiology from Nasopharyngeal Updated: 05/27/25 1518 COVID-19 PCR Not detected Narrative: The [employer] Xpert Xpress SARS-COV-2 has been authorized by the Food and Drug Administration (FDA) under an Emergency Use Authorization (EUA). This test has been validated in accordance with the FDA'sguidance document Policy for Diagnostic Testing in Laboratories Certified to perform High Complexity Testing under CLIA prior to Emergency Use Authorization for Coronavirus Disease-2019 during the Public Health Emergency issued on December 08, 2019. FDA independent review of this validation is pending. This test is only authorized for the duration of the time the declaration that circumstances exist justifying the authorization of emergency use of in vitro diagnostic tests for detection of SARS-COV-2 virus and/or diagnosis of COVID-19 infection under 564(b) (1) of the Act. 21 U.S.C. 360bbb-3 (b) (1), unless the authorization is terminated or revoked sooner. Fact Sheets for this EUA assay are available upon request. CULTURE SPUTUM+GRAM STAIN [[id number]] Collected: 05/19/25 1620 Lab Status: Final result Specimen: Microbiology from Sputum Updated: 05/21/25 0808 Culture Light normal oropharyngeal alisa Gram Stain Moderate Gram-negative bacilli Moderate Gram-positive cocci Light Yeast >= 25 per low power field Polymorphonuclear cells <10 per low power field Squamous epithelial cells CULTURE BLOOD [[id number]] (Normal) Collected: 05/17/25 1440 Lab Status: Final result Specimen: Blood Peripheral Updated: 05/22/25 1931 Culture No growth day 5 MRSA PCR [[id number]] (Normal) Collected: 05/17/25 1440 Lab Status: Final result Specimen: Microbiology from Nasal Updated: 05/17/25 2106 MRSA DNA by PCR Not detected Narrative: Methicillin-resistant Staphylococcus aureus (MRSA) DNA is not detected (presumed not colonized withMRSA). CULTURE BLOOD [[id number]] (Normal) Collected: 05/17/25 1436 Lab Status: Final result Specimen: Blood Peripheral Updated: 05/22/25 1931 Culture No growth day 5 Imaging No results found. Relevant labs and imaging data reviewed on [facility]. Assessment and Plan Hyperkalemia (POA: Yes) Hyperbilirubinemia (POA: Yes) Hyponatremia (POA: Yes) Transaminitis (POA: Yes) Elevated alkaline phosphatase level (POA: Yes) Acute on chronic congestive heart failure, unspecified heart failure type (HCC) (POA: Yes) Obesity with serious comorbidity, unspecified class, unspecified obesity type (POA: Yes) Demand ischemia (HCC) (POA: Yes) History of endocarditis (POA: Yes) Agitation (POA: Yes) Hypothyroidism (POA: Yes) Atrial fibrillation (HCC) (POA: Yes) Prolonged Q-T interval on ECG (POA: Yes) Pericardial effusion (HCC) (POA: Yes) Acute kidney injury (POA: Yes) Type 2 diabetes mellitus, without long-term current use of insulin (HCC) (POA: Yes) Shortness of breath (POA: Unknown) Assessment & Plan Hyperkalemia Hyponatremia Hyponatremia, resolved Hyperkalemia, improving Continue to monitor Obesity with serious comorbidity, unspecified class, unspecified obesity type Type 2 diabetes mellitus, without long-term current use of insulin (HCC) Continue Accu-Chek, SSI, Lantus Agitation - Pt noted to be obtunded at 4AM on 05/17, was given ativan earlier In the night for agitation - EEG with generalized slowing - sedation weaned off on M - CT head 05/20 - no acute abnormalities - At baseline, pt responds to her name and is able to express what she wants/doesn't want per sister. Has very limited understanding of her medical conditions iso TBI; sisters administer her meds, and otherwise patient reportedly does ADLs. non compliant with cardiac diet at home, and has numerous admissions for HF exacerbations in past - Avoid benzos Demand ischemia (HCC) Acute on chronic congestive heart failure, unspecified heart failure type (HCC) History of endocarditis - TTE with EF of 25% on 05/27/25 Patient's blood pressure is staying soft Had recent cardiogenic/mixed shock Not volume overloaded, discontinued Bumex - Empagliflozin 10mg Continue metop succ and entresto -regarding severe TR: not to have inpt intervention but will need outpt f/u. Pt was supposed to follow with [facility], advise to keep that appointment but will refer to [facility] cardiology in case Continue home cefadroxil; (cont on cefadroxil 500mg BID on discharge) Atrial fibrillation (HCC) Prolonged Q-T interval on ECG - Cont home xarelto, had not previously been getting due to agitation - RVR resolved after digoxin load - Unable to do DCCV d/t LA thrombus PLAN: - Cont Eliquis - Will need repeat CHANCE in 3 months on discharge to reassess thrombus Hypothyroidism - Cont home levothyroxine Acute kidney injury - BUN increasing, will ctm RFP. Likely iso hypovolemia from diuresis. Diuretics held for now Shortness of breath Pericardial effusion (HCC) Resolved Hyperbilirubinemia Transaminitis Liver ultrasound; 05/17 with cirrhotic morphology and congestive hepatopathy Cholecystectomy done decades ago Will need GI follow up OP Diet: DIETARY NUTRITION SUPPLEMENTS DIET MODIFIED CONSISTENCY DVT Prophylaxis: Apixaban Code Status: Full Code Electronically Signed By: Jennifer Burton MD 06/03/2025 2:28 PM [1] 0.9% NaCl 3 mL Intracatheter q8h apixaban 5 mg Oral BID busPIRone 10 mg Oral BID cefadroxil 500 mg Oral BID cyanocobalamin 500 mcg Oral QDAY empagliflozin 10 mg Oral QDAY escitalopram 10 mg Oral QDAY guaiFENesin ER 12hr 600 mg Oral q12h insulin aspart 0-18 Units Subcutaneous TID WC insulin glargine 5 Units Subcutaneous AT BEDTIME levothyroxine 75 mcg Oral QAM metoprolol succinate XL 24hr 25 mg Oral QDAY patiromer 8.4 g Oral QDAY at 1300 polyethylene glycol 3350 17 g Oral QDAY sacubitril-valsartan 0.5 tablet Oral BID senna 17.2 mg Oral QDAY vitamin D3 5,000 Units Oral QDAY [2] SALINE LOCK, INSERT AND MAINTAIN AND 0.9% NaCl AND 0.9% NaCl acetaminophen albuterol HFA dextrose IV for hypoglycemia OR dextrose IV for hypoglycemia OR glucagon glucose (Diabetic Use) gel loperamide [3] * Maria Luisa Hernandez MSW - 06/03/2025 12:00 PM CDT New Facility Placement Referral source: Date of referral:06/03/25 Admitted from: Home Special Needs: SNF Patient Goal (short term and technician terminal and repeater): Short Actual Level of Care/Dispostion Details Patient / Family provided post-acute services choices?: Yes Spoke with (Phone number, if not patient. Family participation encouraged): Extended Emergency Contact Information Primary Emergency Contact: Mounika Rice Address: [address] [place] [address] States of [place] Mobile Relation: Sister Secondary Emergency Contact: Laura Mcginnis (PERLITAA) Mobile Relation: Sister Family Contacted: Yes List of facilities provided (within patient and geographic preference): Yes Referrals initiated: Continued Care and Services - Admitted Since 05/15/2025 Destination Service Provider Request Status Services Address Phone Fax Patient Preferred [facility] Pending - Request Sent -- [address] [facility] [address] [phone] -- [facility] Pending - Request Sent -- [address] [facility] [address] -- Current Capacity last updated by Tiffanie Stiles on 04/18/2025 1151 All 120 beds are dual certified for Medicare and Medicaid. We take both short- term and long-term patients. [facility] Declined Patient does not meet the level of care required for admission -- [address] , [facility] [id number] -- [facility] Declined Facility cannot provide for patient's needs -- [address] [facility] [address] -- Home Medical Care Service Provider Request Status Services Address Phone Fax Patient Preferred [facility] Pending - Request Sent -- [address] [facility] [address] [phone] -- If Medicare-3 day qualifying stay verified: Yes monitoring facility responses Comments: SW received call from pt's sister Mounika [phone]. Pt's sister stated the family is now interested in SNF. Pt's sister provided SW with the choices of facilities. SW encouraged the pt's sister to select additional facilities. SW offered to send referrals pt's sister declined. Pt's sister stated the other facility in the area the pt's at. Pt's sister stated she has spoken to Zahra at the facility and they are expecting the referral. SW continue to follow pt until transition to next level of care. Update SW attempted to follow up with [facility] [phone] liaison engineer out of the office for the day [facility] liaison engineer Miranda stated she did not receive the referral. SW resent to fax [phone]. Name: Maria Luisa RISHI Hernandez Phone: [phone] * Ynes Muniz RN - 06/03/2025 10:32 AM CDT Problem: Neurosensory - Adult Goal: Achieves stable or improved neurological status Description: INTERVENTIONS Outcome: Progressing Goal: Remains free of injury related to seizures activity Description: INTERVENTIONS: Outcome: Progressing Goal: Achieves maximal functionality and self care Description: INTERVENTIONS: Outcome: Progressing Problem: Respiratory - Adult Goal: Achieves optimal ventilation and oxygenation Description: INTERVENTIONS: Outcome: Progressing Problem: Cardiovascular - Adult Goal: Maintains optimal cardiac output and hemodynamic stability Description: INTERVENTIONS: Outcome: Progressing Goal: Absence of cardiac dysrhythmias or at baseline Description: INTERVENTIONS: Outcome: Progressing Problem: Skin/Tissue Integrity - Adult Goal: Skin integrity remains intact Description: INTERVENTIONS: Outcome: Progressing Goal: Incisions, wounds, or drain sites healing without S/S of infection Description: INFECTIONS: Outcome: Progressing Goal: Oral mucous membranes remain intact Description: INTERVENTIONS: Outcome: Progressing Problem: Neurovascular Musculoskeletal - Adult Goal: Return mobility to safest level of function Description: INTERVENTIONS: Outcome: Progressing Goal: Maintain proper alignment of affected body part Description: INTERVENTIONS: Outcome: Progressing Goal: Return ADL status to a safe level of function Description: INTERVENTIONS: Outcome: Progressing Goal: Absence or reduction of edema Description: INTERVENTIONS Outcome: Progressing Goal: Maintains or improves tissue perfusion Description: INTERVENTIONS Outcome: Progressing Problem: Genitourinary - Adult Goal: Maintains or returns to baseline genitourinary function Description: INTERVENTIONS: Outcome: Progressing Goal: Urinary catheter remains patent Description: INTERVENTIONS: Outcome: Progressing Problem: Infection - Adult Goal: Infections are decreased or avoided Description: INTERVENTIONS: Outcome: Progressing Problem: Metabolic/Fluid and Electrolytes - Adult Goal: Electrolytes maintained within normal limits Description: INTERVENTIONS: Outcome: Progressing Goal: Hemodynamic stability and optimal renal function maintained Description: INTERVENTIONS: Outcome: Progressing Goal: Glucose maintained within prescribed range Description: INTERVENTIONS: Outcome: Progressing Problem: Hematologic - Adult Goal: Maintains hematologic stability Description: INTERVENTIONS: Outcome: Progressing Problem: Pain/Discomfort Goal: Patient exhibits reduced pain/discomfort as evidenced by pain scores Outcome: Progressing Goal: Patient uses pharmacological and non-pharmacological pain management strategies. Outcome: Progressing Goal: Patient verbalizes acceptable level of pain relief and ability to engage in desired activity. Outcome: Progressing Problem: Restraint Safety Goal: Free from restraint(s) Description: INTERVENTIONS: Outcome: Progressing Goal: Remains free of injury from restraints Description: INTERVENTIONS: Outcome: Progressing Problem: Fall Risk Goal: Fall risk and fall related injury risk are minimized (interventions related to the fall risk can be found in the flowsheet documentation) Outcome: Progressing Problem: Gastrointestinal - Adult Goal: Minimal or absence of nausea and vomiting Description: INTERVENTIONS: Outcome: Progressing Goal: Maintains or returns to baseline bowel function Description: INTERVENTIONS: Outcome: Progressing Goal: Maintains adequate nutritional intake Description: INTERVENTIONS: Outcome: Progressing Problem: Anxiety Goal: Will report anxiety at manageable levels Description: INTERVENTIONS Outcome: Progressing Problem: Coping Goal: Patient/Healthcare Agent able to verbalize concerns and demonstrate effective coping strategies Description: INTERVENTIONS Outcome: Progressing Problem: Decision Making Goal: Patient/Healthcare Agent able to effectively weigh alternatives and participate in decision making related to treatment and care. Description: INTERVENTIONS Outcome: Progressing Problem: Behavior Goal: Pt/Family maintain appropriate behavior and adhere to behavioral management agreement, if implemented Description: INTERVENTIONS Outcome: Progressing Problem: Depression/Self Harm Goal: Effect of psychiatric condition will be minimized and patient will be protected from self harm Description: INTERVENTIONS Outcome: Progressing Problem: Substance Abuse/Detox Goal: Will have no detox symptoms and will verbalize plan for changing drug- related behavior Description: INTERVENTIONS Outcome: Progressing Problem: Oral Intake: Inadequate oral intake Goal: Total intake will meet estimated nutrient needs Outcome: Progressing Problem: Balance Goal: LTG - Patient will maintain standing and sitting balance to allow for completion of daily activities Outcome: Progressing Goal: LTG - Patient will demonstrate Intervention to enhance balance for safe completion of daily activities Outcome: Progressing * Elisabet Cage RN - 06/02/2025 10:48 PM CDT Problem: Neurosensory - Adult Goal: Achieves stable or improved neurological status Description: INTERVENTIONS Outcome: Progressing Goal: Remains free of injury related to seizures activity Description: INTERVENTIONS: Outcome: Progressing Goal: Achieves maximal functionality and self care Description: INTERVENTIONS: Outcome: Progressing Problem: Respiratory - Adult Goal: Achieves optimal ventilation and oxygenation Description: INTERVENTIONS: Outcome: Progressing Problem: Cardiovascular - Adult Goal: Maintains optimal cardiac output and hemodynamic stability Description: INTERVENTIONS: Outcome: Progressing Goal: Absence of cardiac dysrhythmias or at baseline Description: INTERVENTIONS: Outcome: Progressing Problem: Skin/Tissue Integrity - Adult Goal: Skin integrity remains intact Description: INTERVENTIONS: Outcome: Progressing Goal: Incisions, wounds, or drain sites healing without S/S of infection Description: INFECTIONS: Outcome: Progressing Goal: Oral mucous membranes remain intact Description: INTERVENTIONS: Outcome: Progressing Problem: Neurovascular Musculoskeletal - Adult Goal: Return mobility to safest level of function Description: INTERVENTIONS: Outcome: Progressing Goal: Maintain proper alignment of affected body part Description: INTERVENTIONS: Outcome: Progressing Goal: Return ADL status to a safe level of function Description: INTERVENTIONS: Outcome: Progressing Goal: Absence or reduction of edema Description: INTERVENTIONS Outcome: Progressing Goal: Maintains or improves tissue perfusion Description: INTERVENTIONS Outcome: Progressing Problem: Genitourinary - Adult Goal: Maintains or returns to baseline genitourinary function Description: INTERVENTIONS: Outcome: Progressing Goal: Urinary catheter remains patent Description: INTERVENTIONS: Outcome: Progressing Problem: Infection - Adult Goal: Infections are decreased or avoided Description: INTERVENTIONS: Outcome: Progressing Problem: Metabolic/Fluid and Electrolytes - Adult Goal: Electrolytes maintained within normal limits Description: INTERVENTIONS: Outcome: Progressing Goal: Hemodynamic stability and optimal renal function maintained Description: INTERVENTIONS: Outcome: Progressing Goal: Glucose maintained within prescribed range Description: INTERVENTIONS: Outcome: Progressing Problem: Gastrointestinal - Adult Goal: Minimal or absence of nausea and vomiting Description: INTERVENTIONS: Outcome: Progressing Goal: Maintains or returns to baseline bowel function Description: INTERVENTIONS: Outcome: Progressing Goal: Maintains adequate nutritional intake Description: INTERVENTIONS: Outcome: Progressing Problem: Pain/Discomfort Goal: Patient exhibits reduced pain/discomfort as evidenced by pain scores Outcome: Progressing Goal: Patient uses pharmacological and non-pharmacological pain management strategies. Outcome: Progressing Goal: Patient verbalizes acceptable level of pain relief and ability to engage in desired activity. Outcome: Progressing Goals: Patient will remain free from falls and all other injuries. Summary: Patient seems to be aware of limitations at this time. All high risk fall interventions remain in place at this time. No unsafe behaviors have been observed. Care remains ongoing. * Ynes Muniz RN - 06/02/2025 11:42 AM CDT Problem: Neurosensory - Adult Goal: Achieves stable or improved neurological status Description: INTERVENTIONS Outcome: Progressing Goal: Remains free of injury related to seizures activity Description: INTERVENTIONS: Outcome: Progressing Goal: Achieves maximal functionality and self care Description: INTERVENTIONS: Outcome: Progressing Problem: Respiratory - Adult Goal: Achieves optimal ventilation and oxygenation Description: INTERVENTIONS: Outcome: Progressing Problem: Cardiovascular - Adult Goal: Maintains optimal cardiac output and hemodynamic stability Description: INTERVENTIONS: Outcome: Progressing Goal: Absence of cardiac dysrhythmias or at baseline Description: INTERVENTIONS: Outcome: Progressing Problem: Skin/Tissue Integrity - Adult Goal: Skin integrity remains intact Description: INTERVENTIONS: Outcome: Progressing Goal: Incisions, wounds, or drain sites healing without S/S of infection Description: INFECTIONS: Outcome: Progressing Goal: Oral mucous membranes remain intact Description: INTERVENTIONS: Outcome: Progressing Problem: Neurovascular Musculoskeletal - Adult Goal: Return mobility to safest level of function Description: INTERVENTIONS: Outcome: Progressing Goal: Maintain proper alignment of affected body part Description: INTERVENTIONS: Outcome: Progressing Goal: Return ADL status to a safe level of function Description: INTERVENTIONS: Outcome: Progressing Goal: Absence or reduction of edema Description: INTERVENTIONS Outcome: Progressing Goal: Maintains or improves tissue perfusion Description: INTERVENTIONS Outcome: Progressing Problem: Genitourinary - Adult Goal: Maintains or returns to baseline genitourinary function Description: INTERVENTIONS: Outcome: Progressing Goal: Urinary catheter remains patent Description: INTERVENTIONS: Outcome: Progressing Problem: Infection - Adult Goal: Infections are decreased or avoided Description: INTERVENTIONS: Outcome: Progressing Problem: Metabolic/Fluid and Electrolytes - Adult Goal: Electrolytes maintained within normal limits Description: INTERVENTIONS: Outcome: Progressing Goal: Hemodynamic stability and optimal renal function maintained Description: INTERVENTIONS: Outcome: Progressing Goal: Glucose maintained within prescribed range Description: INTERVENTIONS: Outcome: Progressing Problem: Hematologic - Adult Goal: Maintains hematologic stability Description: INTERVENTIONS: Outcome: Progressing Problem: Pain/Discomfort Goal: Patient exhibits reduced pain/discomfort as evidenced by pain scores Outcome: Progressing Goal: Patient uses pharmacological and non-pharmacological pain management strategies. Outcome: Progressing Goal: Patient verbalizes acceptable level of pain relief and ability to engage in desired activity. Outcome: Progressing Problem: Restraint Safety Goal: Free from restraint(s) Description: INTERVENTIONS: Outcome: Progressing Goal: Remains free of injury from restraints Description: INTERVENTIONS: Outcome: Progressing Problem: Fall Risk Goal: Fall risk and fall related injury risk are minimized (interventions related to the fall risk can be found in the flowsheet documentation) Outcome: Progressing Problem: Gastrointestinal - Adult Goal: Minimal or absence of nausea and vomiting Description: INTERVENTIONS: Outcome: Progressing Goal: Maintains or returns to baseline bowel function Description: INTERVENTIONS: Outcome: Progressing Goal: Maintains adequate nutritional intake Description: INTERVENTIONS: Outcome: Progressing Problem: Anxiety Goal: Will report anxiety at manageable levels Description: INTERVENTIONS Outcome: Progressing Problem: Coping Goal: Patient/Healthcare Agent able to verbalize concerns and demonstrate effective coping strategies Description: INTERVENTIONS Outcome: Progressing Problem: Decision Making Goal: Patient/Healthcare Agent able to effectively weigh alternatives and participate in decision making related to treatment and care. Description: INTERVENTIONS Outcome: Progressing Problem: Behavior Goal: Pt/Family maintain appropriate behavior and adhere to behavioral management agreement, if implemented Description: INTERVENTIONS Outcome: Progressing Problem: Depression/Self Harm Goal: Effect of psychiatric condition will be minimized and patient will be protected from self harm Description: INTERVENTIONS Outcome: Progressing Problem: Substance Abuse/Detox Goal: Will have no detox symptoms and will verbalize plan for changing drug- related behavior Description: INTERVENTIONS Outcome: Progressing Problem: Oral Intake: Inadequate oral intake Goal: Total intake will meet estimated nutrient needs Outcome: Progressing Problem: Balance Goal: LTG - Patient will maintain standing and sitting balance to allow for completion of daily activities Outcome: Progressing Goal: LTG - Patient will demonstrate Intervention to enhance balance for safe completion of daily activities Outcome: Progressing * Vamsi Rocha MD - 06/02/2025 7:44 AM CDT Images from the original note were not included. 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 Pt was initially admitted to medicine service and cardiology consulted regarding severity of heart failure and other valvular issues. On admission, labs significant for BNP 2209, trop 24-->23, Na 122, K 6.1, Cr 1.48, alk phos 365, bili 7.7.Pt was shifted with insulin + dextrose, given patiromer and. She was started on IV furosemide TID for acute HFrEF. EKG showing Qtc prolongation. Pt noted to be hypoglycemic in 40s on 05/16 AM, hypoglycemia protocol initiated. Patient transferred to primary cardiology service on 05/16 d/t concern that patient may develop cardiogenic shock. On 05/17, decision was made to proceed with light sedation in order to be able to provide meds to pt given that she was not taking any orals d/t sedation; additionally Na in 121-122 range and pt would need more frequent lab draws for mgmt. On transfer to ICU, pt increasing agitated and given IV ativan. Then noted to be obtunded, intubated for airway protection. She was given hypertonic saline 2x, and was also briefly on levophed for BP support. ICU team [facility]. Started on nitroprusside drip, but then discontinued d/t no proper BP measurements. Palliative consulted regarding family's understanding of medical conditions and difficult decision making. A line and central line placed. Sedation was discontinued on 05/19 AM, pt responding to name but not following commands. Noted to have afib with RVR overnight, proceeded with CHANCE DCCV. On CHANCE on 05/20, pt noted to have LA thrombus, DCCV was aborted. Lactic increasing on 05/20, given 250cc bolus for c/f hypovolemic shock. Patient unable to extubate d/t inability to follow commands despite weaning sedation between 05/21-05/22. Extubated on 05/24. Passed swallow study on 05/27, NG removed and patient transferred to floor. Objective Temp: [98.1 ??F (36.7 ??C)-99 ??F (37.2 ??C)] 98.2 ??F (36.8 ??C) Pulse: [79-85] 79 Resp: [14-18] 18 BP: (86-132)/(46-84) 105/63 Weight change: Intake/Output Summary (Last 24 hours) at 06/02/2025 0744 Last data filed at 06/02/2025 0131 Gross per 24 hour Intake 460 ml Output 800 ml Net -340 ml PE: General: NAD HEENT: NC, AT, moist oral mucosa Neck: No JVD appreciated Heart: normal rate Lungs: non-labored respirations Abdomen: non-distended Extremities: no deformity, no cyanosis Neuro: No focal deficits Psych: Appropriate mood and affect Scheduled Medications: Medications[1] PRN Medications: Medications[2] Continuous Infusions: Medications[3] Laboratory Data Recent Labs Component Name 06/02/25 0559 06/01/25 0405 05/31/25220 WBC 5.0 5.0 5.7 HGB 13.5 13.2 12.6 HCT 42.2 40.8 38.2 PLTCOUNT 290 293 301 MCV 105.8* 104.9* 102.7* Recent Labs Component Name 05/15/25 1454 PT 29.5* INR 2.9 Recent Labs Component Name 06/02/25 0559 06/01/25 0406 05/31/25 022 NA 137 139 136 POTASSIUM 5.2* 4.7* 4.5 CL 104 105 102 CO2 25 27 27 BUN 22 28* 28* CREATININE 0.87 0.92 0.96 Recent Labs Component Name 06/02/25 0559 06/01/25 0406 05/31/25 022 CALCIUM 9.2 9.2 9.1 PHOS 4.0 4.7 4.0 Recent Labs Component Name 06/02/25 0559 06/01/25 0406 05/31/25 0221 05/18/25 0933 05/18/25 0305 05/15/25225605/15/252019 PROT 6.4 6.4 6.0 - - - - ALB 2.4* 2.4* 2.3* - 2.6* - - ALKPHOS 265* 249* 258* - - - - AST 50* 56* 54* - - - - ALT 34 32 35 - - - - TBILI 3.9* 3.9* 3.5* - - - 7.0* DBILI - - - - 4.4* - 4.9* - = values in this interval not displayed. No results for input(s): CKTOTAL, CKMBCK2, TROPONINI in the last 14319 hours. No results for input(s): VANCORNDM, VANCTROUGH in the last 41120 hours. Microbiology Results (Displays last 21 days for this encounter ONLY) Procedure Component Value - Date/Time SARS-COV-2 (COVID-19) RAPID [[id number]] (Normal) Collected: 05/27/25 1439 Lab Status: Final result Specimen: Microbiology from Nasopharyngeal Updated: 05/27/25 1518 COVID-19 PCR Not detected Narrative: The [employer] Xpert Xpress SARS-COV-2 has been authorized by the Food and Drug Administration (FDA) under an Emergency Use Authorization (EUA). This test has been validated in accordance with the FDA'sguidance document Policy for Diagnostic Testing in Laboratories Certified to perform High Complexity Testing under CLIA prior to Emergency Use Authorization for Coronavirus Disease-2019 during the Public Health Emergency issued on December 08, 2019. FDA independent review of this validation is pending. This test is only authorized for the duration of the time the declaration that circumstances exist justifying the authorization of emergency use of in vitro diagnostic tests for detection of SARS-COV-2 virus and/or diagnosis of COVID-19 infection under 564(b) (1) of the Act. 21 U.S.C. 360bbb-3 (b) (1), unless the authorization is terminated or revoked sooner. Fact Sheets for this EUA assay are available upon request. CULTURE SPUTUM+GRAM STAIN [[id number]] Collected: 05/19/25 1620 Lab Status: Final result Specimen: Microbiology from Sputum Updated: 05/21/25 0808 Culture Light normal oropharyngeal alisa Gram Stain Moderate Gram-negative bacilli Moderate Gram-positive cocci Light Yeast >= 25 per low power field Polymorphonuclear cells <10 per low power field Squamous epithelial cells CULTURE BLOOD [[id number]] (Normal) Collected: 05/17/25 1440 Lab Status: Final result Specimen: Blood Peripheral Updated: 05/22/25 1931 Culture No growth day 5 MRSA PCR [[id number]] (Normal) Collected: 05/17/25 1440 Lab Status: Final result Specimen: Microbiology from Nasal Updated: 05/17/25 2106 MRSA DNA by PCR Not detected Narrative: Methicillin-resistant Staphylococcus aureus (MRSA) DNA is not detected (presumed not colonized withMRSA). CULTURE BLOOD [[id number]] (Normal) Collected: 05/17/25 1436 Lab Status: Final result Specimen: Blood Peripheral Updated: 05/22/25 1931 Culture No growth day 5 Imaging No results found. Relevant labs and imaging data reviewed on [facility]. Assessment and Plan Hyperkalemia (POA: Yes) Hyperbilirubinemia (POA: Yes) Hyponatremia (POA: Yes) Transaminitis (POA: Yes) Elevated alkaline phosphatase level (POA: Yes) Acute on chronic congestive heart failure, unspecified heart failure type (HCC) (POA: Yes) Obesity with serious comorbidity, unspecified class, unspecified obesity type (POA: Yes) Demand ischemia (HCC) (POA: Yes) History of endocarditis (POA: Yes) Agitation (POA: Yes) Hypothyroidism (POA: Yes) Atrial fibrillation (HCC) (POA: Yes) Prolonged Q-T interval on ECG (POA: Yes) Pericardial effusion (HCC) (POA: Yes) Acute kidney injury (POA: Yes) Type 2 diabetes mellitus, without long-term current use of insulin (HCC) (POA: Yes) Shortness of breath (POA: Unknown) Assessment & Plan Hyperkalemia Hyponatremia - Pt hyperkalemic on arrival, shifted with insulin + dextrose and started on lokelma - Noted to be HypoNa, though baseline may be close to 130-132 - Likely hypervolemic hyponatremia iso cardiogenic shock and ADHF PLAN: - Replete lytes as needed Obesity with serious comorbidity, unspecified class, unspecified obesity type Type 2 diabetes mellitus, without long-term current use of insulin (HCC) - per notes from 04/19, home regimen is 17U lantus in AM, 12U TID AC + slide 0-10U - Noted to have hypoglycemic episode on 87AM - BG has been ranging 220-300s on 05/20 PLAN: - Cont SSI 0-18U, accuchecks with meals - Cont lantus 5U qhs Agitation - Pt noted to be obtunded at 4AM on 05/17, was given ativan earlier In the night for agitation - EEG with generalized slowing - sedation weaned off on M - CT head 05/20 - no acute abnormalities - At baseline, pt responds to her name and is able to express what she wants/doesn't want per sister. Has very limited understanding of her medical conditions iso TBI; sisters administer her meds, and otherwise patient reportedly does ADLs. non compliant with cardiac diet at home, and has numerous admissions for HF exacerbations in past - Avoid benzos Demand ischemia (HCC) Acute on chronic congestive heart failure, unspecified heart failure type (HCC) History of endocarditis - TTE with EF of 25% on 05/27/25 Patient's blood pressure is staying soft Had recent cardiogenic/mixed shock Not volume overloaded, discontinued Bumex - Empagliflozin 10mg Continue metop succ and entresto -regarding severe TR: not to have inpt intervention but will need outpt f/u. Pt was supposed to follow with [facility], advise to keep that appointment but will refer to [facility] cardiology in case - Resumed home cefadroxil; cont on cefadroxil 500mg BID on discharge Atrial fibrillation (HCC) Prolonged Q-T interval on ECG - Cont home xarelto, had not previously been getting due to agitation - RVR resolved after digoxin load - Unable to do DCCV d/t LA thrombus PLAN: - Cont xarelto - Will need repeat CHANCE in 3 months on discharge to reassess thrombus Hypothyroidism - Cont home levothyroxine Acute kidney injury - BUN increasing, will ctm RFP. Likely iso hypovolemia from diuresis. Diuretics held for now Shortness of breath Pericardial effusion (HCC) Resolved Hyperbilirubinemia Transaminitis Liver ultrasound; 05/17 with cirrhotic morphology and congestive hepatopathy Cholecystectomy done decades ago Will need GI follow up OP Dispo: needs SNF placement. Spoke to her sisters (Dilia and Mounika) yesterday at length. They hadsome very understandable concerns about their sister going to a SNF but they are now agreeable. They'd like to review some facilities near their home this weekend. Discussed patient medically ready for discharge and I anticipated discharge early next week to which they expressed understanding. Diet: DIETARY NUTRITION SUPPLEMENTS DIET MODIFIED CONSISTENCY DVT Prophylaxis: Apixaban Code Status: Full Code Electronically Signed By: Vamsi Rocha MD 06/02/2025 7:44 AM [1] 0.9% NaCl 3 mL Intracatheter q8h apixaban 5 mg Oral BID busPIRone 10 mg Oral BID cefadroxil 500 mg Oral BID cyanocobalamin 500 mcg Oral QDAY empagliflozin 10 mg Oral QDAY escitalopram 10 mg Oral QDAY guaiFENesin ER 12hr 600 mg Oral q12h insulin aspart 0-18 Units Subcutaneous TID WC insulin glargine 5 Units Subcutaneous AT BEDTIME levothyroxine 75 mcg Oral QAM metoprolol succinate XL 24hr 25 mg Oral QDAY patiromer 8.4 g Oral QDAY at 1300 polyethylene glycol 3350 17 g Oral QDAY sacubitril-valsartan 0.5 tablet Oral BID senna 17.2 mg Oral QDAY vitamin D3 5,000 Units Oral QDAY [2] SALINE LOCK, INSERT AND MAINTAIN AND 0.9% NaCl AND 0.9% NaCl acetaminophen albuterol HFA dextrose IV for hypoglycemia OR dextrose IV for hypoglycemia OR glucagon glucose (Diabetic Use) gel loperamide [3] * Louis Logan RN - 06/02/2025 6:46 AM CDT Pt did not have acute event during the shift. Oral meds were swallowed and retained. Pt was noted to be crying at some point. When assessed as to why they were crying, pt said she wanted to have donuts with her coffee and the TV remote. RN provided some coffee and help find TV remote which was visible and within reach of the pt. Donut alternatives were offered. Will continue to monitor. * Vamsi Rocha MD - 06/01/2025 4:03 PM CDT Family Notification Documentation Contact made: 06/01/2025 4:03 PM Person(s) contacted: Mounika Baker (Sisters) Method of communication: Phone Duration of discussion: 20 minutes Summary of discussion Discussed clinical status. Mounika is a bit worried about her sister being discharged. Reassured her she was remaining in house for today. She is specifically worried about her mind and memory. Also concerned about inability to ambulate. Discussed likelihood of delirium and deconditioning. Acosta perkins (POA) is hoping she can be discharged on the or so that she can take some time to review the facilities. * Vamsi Rocha MD - 06/01/2025 8:44 AM CDT Images from the original note were not included. [facility] Internal Medicine Progress Note Name: Loretta Calderon [place] Room/Bed: [facility] : 1960 64 year old PCP: KYA Salinas Admit Date/Time: 05/15/2025 6:17 PM LOS: 17 Subjective Interval update: No significant complaints. Eating breakfast. 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 Pt was initially admitted to medicine service and cardiology consulted regarding severity of heart failure and other valvular issues. On admission, labs significant for BNP 2209, trop 24-->23, Na 122, K 6.1, Cr 1.48, alk phos 365, bili 7.7.Pt was shifted with insulin + dextrose, given patiromer and. She was started on IV furosemide TID for acute HFrEF. EKG showing Qtc prolongation. Pt noted to be hypoglycemic in 40s on 05/16 AM, hypoglycemia protocol initiated. Patient transferred to primary cardiology service on 05/16 d/t concern that patient may develop cardiogenic shock. On 05/17, decision was made to proceed with light sedation in order to be able to provide meds to pt given that she was not taking any orals d/t sedation; additionally Na in 121-122 range and pt would need more frequent lab draws for mgmt. On transfer to ICU, pt increasing agitated and given IV ativan. Then noted to be obtunded, intubated for airway protection. She was given hypertonic saline 2x, and was also briefly on levophed for BP support. ICU team c/s for mech vent management. Started on nitroprusside drip, but then discontinued d/t no proper BP measurements. Palliative consulted regarding family's understanding of medical conditions and difficult decision making. A line and central line placed. Sedation was discontinued on 05/19 AM, pt responding to name but not following commands. Noted to have afib with RVR overnight, proceeded with CHANCE DCCV. On CHANCE on 05/20, pt noted to have LA thrombus, DCCV was aborted. Lactic increasing on 05/20, given 250cc bolus for c/f hypovolemic shock. Patient unable to extubate d/t inability to follow commands despite weaning sedation between 05/21-05/22. Extubated on 05/24. Passed swallow study on 05/27, NG removed and patient transferred to floor. Objective Temp: [97.5 ??F (36.4 ??C)-98.6 ??F (37 ??C)] 97.5 ??F (36.4 ??C) Pulse: [66-86] 75 Resp: [17-20] 20 BP: (84-153)/(48-127) 104/49 Weight change: Intake/Output Summary (Last 24 hours) at 06/01/2025 0844 Last data filed at 06/01/2025 0415 Gross per 24 hour Intake 240 ml Output 0 ml Net 240 ml PE: General: NAD HEENT: NC, AT, moist oral mucosa Neck: No JVD appreciated Heart: normal rate Lungs: non-labored respirations Abdomen: non-distended Extremities: no deformity, no cyanosis Neuro: No focal deficits Psych: Appropriate mood and affect Scheduled Medications: Medications[1] PRN Medications: Medications[2] Continuous Infusions: Medications[3] Laboratory Data Recent Labs Component Name 06/01/25 0405 05/31/25 0221 05/30/25 0305 WBC 5.0 5.7 5.4 HGB 13.2 12.6 12.6 HCT 40.8 38.2 38.1 PLTCOUNT 293 301 302 MCV 104.9* 102.7* 101.6* Recent Labs Component Name 05/15/25 1454 PT 29.5* INR 2.9 Recent Labs Component Name 06/01/25 0406 05/31/25 0221 05/30/25 0305 NA 139 136 136 POTASSIUM 4.7* 4.5 3.9 CL 105 102 101 CO2 27 27 30* BUN 28* 28* 30* CREATININE 0.92 0.96 0.89 Recent Labs Component Name 06/01/25 0406 05/31/25 0221 05/30/25 0305 CALCIUM 9.2 9.1 9.0 PHOS 4.7 4.0 4.0 Recent Labs Component Name 06/01/25 0406 05/31/25 0221 05/30/25 0305 05/18/25 0933 05/18/25 0305 05/15/25225605/15/25 2020 PROT 6.4 6.0 6.1 - - - - ALB 2.4* 2.3* 2.2* - 2.6* - - ALKPHOS 249* 258* 220* - - - - AST 56* 54* 55* - - - - ALT 32 35 30 - - - - TBILI 3.9* 3.5* 3.9* - - - 7.0* DBILI - - - - 4.4* - 4.9* - = values in this interval not displayed. No results for input(s): CKTOTAL, CKMBCK2, TROPONINI in the last 33273 hours. No results for input(s): [facility] in the last 73151 hours. Microbiology Results (Displays last 21 days for this encounter ONLY) Procedure Component Value - Date/Time SARS-COV-2 (COVID-19) RAPID [[id number]] (Normal) Collected: 05/27/25 1439 Lab Status: Final result Specimen: Microbiology from Nasopharyngeal Updated: 05/27/25 1518 COVID-19 PCR Not detected Narrative: The [employer] Xpert Xpress SARS-COV-2 has been authorized by the Food and Drug Administration (FDA) under an Emergency Use Authorization (EUA). This test has been validated in accordance with the FDA'sguidance document Policy for Diagnostic Testing in Laboratories Certified to perform High Complexity Testing under CLIA prior to Emergency Use Authorization for Coronavirus Disease-2019 during the Public Health Emergency issued on December 08, 2019. FDA independent review of this validation is pending. This test is only authorized for the duration of the time the declaration that circumstances exist justifying the authorization of emergency use of in vitro diagnostic tests for detection of SARS-COV-2 virus and/or diagnosis of COVID-19 infection under 564(b) (1) of the Act. 21 U.S.C. 360bbb-3 (b) (1), unless the authorization is terminated or revoked sooner. Fact Sheets for this EUA assay are available upon request. CULTURE SPUTUM+GRAM STAIN [[id number]] Collected: 05/19/25 1620 Lab Status: Final result Specimen: Microbiology from Sputum Updated: 05/21/25 0808 Culture Light normal oropharyngeal alisa Gram Stain Moderate Gram-negative bacilli Moderate Gram-positive cocci Light Yeast >= 25 per low power field Polymorphonuclear cells <10 per low power field Squamous epithelial cells CULTURE BLOOD [[id number]] (Normal) Collected: 05/17/25 1440 Lab Status: Final result Specimen: Blood Peripheral Updated: 05/22/25 193 Culture No growth day 5 MRSA PCR [[id number]] (Normal) Collected: 05/17/25 1440 Lab Status: Final result Specimen: Microbiology from Nasal Updated: 05/17/25 2106 MRSA DNA by PCR Not detected Narrative: Methicillin-resistant Staphylococcus aureus (MRSA) DNA is not detected (presumed not colonized withMRSA). CULTURE BLOOD [[id number]] (Normal) Collected: 05/17/25 1436 Lab Status: Final result Specimen: Blood Peripheral Updated: 05/22/25 1931 Culture No growth day 5 Imaging No results found. Relevant labs and imaging data reviewed on Epic. Assessment and Plan Hyperkalemia (POA: Yes) Hyperbilirubinemia (POA: Yes) Hyponatremia (POA: Yes) Transaminitis (POA: Yes) Elevated alkaline phosphatase level (POA: Yes) Acute on chronic congestive heart failure, unspecified heart failure type (HCC) (POA: Yes) Obesity with serious comorbidity, unspecified class, unspecified obesity type (POA: Yes) Demand ischemia (HCC) (POA: Yes) History of endocarditis (POA: Yes) Agitation (POA: Yes) Hypothyroidism (POA: Yes) Atrial fibrillation (HCC) (POA: Yes) Prolonged Q-T interval on ECG (POA: Yes) Pericardial effusion (HCC) (POA: Yes) Acute kidney injury (POA: Yes) Type 2 diabetes mellitus, without long-term current use of insulin (HCC) (POA: Yes) Shortness of breath (POA: Unknown) Assessment & Plan Hyperkalemia Hyponatremia - Pt hyperkalemic on arrival, shifted with insulin + dextrose and started on lokelma - Noted to be HypoNa, though baseline may be close to 130-132 - Likely hypervolemic hyponatremia iso cardiogenic shock and ADHF PLAN: - Replete lytes as needed Obesity with serious comorbidity, unspecified class, unspecified obesity type Type 2 diabetes mellitus, without long-term current use of insulin (HCC) - per notes from 04/19, home regimen is 17U lantus in AM, 12U TID AC + slide 0-10U - Noted to have hypoglycemic episode on M - BG has been ranging 220-300s on 05/20 PLAN: - Cont SSI 0-18U, accuchecks with meals - Cont lantus 5U qhs Agitation - Pt noted to be obtunded at 4AM on 05/17, was given ativan earlier In the night for agitation - EEG with generalized slowing - sedation weaned off on M - CT head 05/20 - no acute abnormalities - At baseline, pt responds to her name and is able to express what she wants/doesn't want per sister. Has very limited understanding of her medical conditions iso TBI; sisters administer her meds, and otherwise patient reportedly does ADLs. non compliant with cardiac diet at home, and has numerous admissions for HF exacerbations in past - Avoid benzos as possible Demand ischemia (HCC) Acute on chronic congestive heart failure, unspecified heart failure type (HCC) History of endocarditis - TTE with EF of 25% on 05/27/25 Patient's blood pressure is staying soft Had recent cardiogenic/mixed shock Not volume overloaded, discontinued Bumex - Empagliflozin 10mg Continue metop succ and entresto -regarding severe TR: not to have inpt intervention but will need outpt f/u. Pt was supposed to follow with [facility], advise to keep that appointment but will refer to [facility] cardiology in case - Resumed home cefadroxil; cont on cefadroxil 500mg BID on discharge Atrial fibrillation (HCC) Prolonged Q-T interval on ECG - Cont home xarelto, had not previously been getting due to agitation - RVR resolved after digoxin load - Unable to do DCCV d/t LA thrombus PLAN: - Cont xarelto - Will need repeat CHANCE in 3 months on discharge to reassess thrombus Hypothyroidism - Cont home levothyroxine Acute kidney injury - BUN increasing, will ctm RFP. Likely iso hypovolemia from diuresis. Diuretics held for now Shortness of breath Pericardial effusion (HCC) Resolved Hyperbilirubinemia Transaminitis Liver ultrasound; 05/17 with cirrhotic morphology and congestive hepatopathy Cholecystectomy done decades ago Will need GI follow up OP Dispo: needs SNF placement Diet: DIETARY NUTRITION SUPPLEMENTS DIET MODIFIED CONSISTENCY DVT Prophylaxis: Apixaban Code Status: Full Code Electronically Signed By: Vamsi Rocha MD 06/01/2025 8:44 AM [1] 0.9% NaCl 3 mL Intracatheter q8h apixaban 5 mg Oral BID busPIRone 10 mg Oral BID cefadroxil 500 mg Oral BID cyanocobalamin 500 mcg Oral QDAY empagliflozin 10 mg Oral QDAY escitalopram 10 mg Oral QDAY guaiFENesin ER 12hr 600 mg Oral q12h insulin aspart 0-18 Units Subcutaneous TID WC insulin glargine 5 Units Subcutaneous AT BEDTIME levothyroxine 75 mcg Oral QAM metoprolol succinate XL 24hr 25 mg Oral QDAY polyethylene glycol 3350 17 g Oral QDAY sacubitril-valsartan 0.5 tablet Oral BID senna 17.2 mg Oral QDAY vitamin D3 5,000 Units Oral QDAY [2] SALINE LOCK, INSERT AND MAINTAIN AND 0.9% NaCl AND 0.9% NaCl acetaminophen albuterol HFA dextrose IV for hypoglycemia OR dextrose IV for hypoglycemia OR glucagon glucose (Diabetic Use) gel loperamide [3] * Amada Love RN - 05/31/2025 3:08 PM CDT Problem: Neurosensory - Adult Goal: Achieves stable or improved neurological status Description: INTERVENTIONS Outcome: Progressing Goal: Remains free of injury related to seizures activity Description: INTERVENTIONS: Outcome: Progressing Goal: Achieves maximal functionality and self care Description: INTERVENTIONS: Outcome: Progressing Problem: Respiratory - Adult Goal: Achieves optimal ventilation and oxygenation Description: INTERVENTIONS: Outcome: Progressing Problem: Cardiovascular - Adult Goal: Maintains optimal cardiac output and hemodynamic stability Description: INTERVENTIONS: Outcome: Progressing Goal: Absence of cardiac dysrhythmias or at baseline Description: INTERVENTIONS: Outcome: Progressing Problem: Skin/Tissue Integrity - Adult Goal: Skin integrity remains intact Description: INTERVENTIONS: Outcome: Progressing Goal: Incisions, wounds, or drain sites healing without S/S of infection Description: INFECTIONS: Outcome: Progressing Goal: Oral mucous membranes remain intact Description: INTERVENTIONS: Outcome: Progressing Problem: Neurovascular Musculoskeletal - Adult Goal: Return mobility to safest level of function Description: INTERVENTIONS: Outcome: Progressing Goal: Maintain proper alignment of affected body part Description: INTERVENTIONS: Outcome: Progressing Goal: Return ADL status to a safe level of function Description: INTERVENTIONS: Outcome: Progressing Goal: Absence or reduction of edema Description: INTERVENTIONS Outcome: Progressing Goal: Maintains or improves tissue perfusion Description: INTERVENTIONS Outcome: Progressing Problem: Genitourinary - Adult Goal: Maintains or returns to baseline genitourinary function Description: INTERVENTIONS: Outcome: Progressing Goal: Urinary catheter remains patent Description: INTERVENTIONS: Outcome: Progressing Problem: Infection - Adult Goal: Infections are decreased or avoided Description: INTERVENTIONS: Outcome: Progressing Problem: Metabolic/Fluid and Electrolytes - Adult Goal: Electrolytes maintained within normal limits Description: INTERVENTIONS: Outcome: Progressing Goal: Hemodynamic stability and optimal renal function maintained Description: INTERVENTIONS: Outcome: Progressing Goal: Glucose maintained within prescribed range Description: INTERVENTIONS: Outcome: Progressing Problem: Hematologic - Adult Goal: Maintains hematologic stability Description: INTERVENTIONS: Outcome: Progressing Problem: Pain/Discomfort Goal: Patient exhibits reduced pain/discomfort as evidenced by pain scores Outcome: Progressing Goal: Patient uses pharmacological and non-pharmacological pain management strategies. Outcome: Progressing Goal: Patient verbalizes acceptable level of pain relief and ability to engage in desired activity. Outcome: Progressing Problem: Restraint Safety Goal: Free from restraint(s) Description: INTERVENTIONS: Outcome: Progressing Goal: Remains free of injury from restraints Description: INTERVENTIONS: Outcome: Progressing Problem: Fall Risk Goal: Fall risk and fall related injury risk are minimized (interventions related to the fall risk can be found in the flowsheet documentation) Outcome: Progressing Problem: Gastrointestinal - Adult Goal: Minimal or absence of nausea and vomiting Description: INTERVENTIONS: Outcome: Progressing Goal: Maintains or returns to baseline bowel function Description: INTERVENTIONS: Outcome: Progressing Goal: Maintains adequate nutritional intake Description: INTERVENTIONS: Outcome: Progressing Problem: Anxiety Goal: Will report anxiety at manageable levels Description: INTERVENTIONS Outcome: Progressing Problem: Coping Goal: Patient/Healthcare Agent able to verbalize concerns and demonstrate effective coping strategies Description: INTERVENTIONS Outcome: Progressing Problem: Decision Making Goal: Patient/Healthcare Agent able to effectively weigh alternatives and participate in decision making related to treatment and care. Description: INTERVENTIONS Outcome: Progressing Problem: Behavior Goal: Pt/Family maintain appropriate behavior and adhere to behavioral management agreement, if implemented Description: INTERVENTIONS Outcome: Progressing Problem: Depression/Self Harm Goal: Effect of psychiatric condition will be minimized and patient will be protected from self harm Description: INTERVENTIONS Outcome: Progressing Problem: Substance Abuse/Detox Goal: Will have no detox symptoms and will verbalize plan for changing drug- related behavior Description: INTERVENTIONS Outcome: Progressing Problem: Oral Intake: Inadequate oral intake Goal: Total intake will meet estimated nutrient needs Outcome: Progressing Problem: Balance Goal: LTG - Patient will maintain standing and sitting balance to allow for completion of daily activities Outcome: Progressing Goal: LTG - Patient will demonstrate Intervention to enhance balance for safe completion of daily activities Outcome: Progressing * Maria Luisa Hernandez MSW - 05/31/2025 11:51 AM CDT Social Work Progress Note Discharge Plan Disposition: SNF Transportation: Transportation at discharge: Family Anticipated Discharge Date: 06/02/2025 Contacts: Extended Emergency Contact Information Primary Emergency Contact: Mounika Rice [address]: [address] [place] [address] [place] Relation: Sister Secondary Emergency Contact: Laura Mcginnis (SANA) Mobile Relation: Sister Comments: Pt was discussed during MDR. Recommended next level of care is SNF. Pt has been denied at [facility] for [facility]. SW contacted the pt's sister Laura (POA) [phone] her sister Mounika. SW provided the pt's family with an update of the referrals and provide choice of SNF. Pt's sisters stated they did not understand why the pt could not go to [facility] or another [place]. SW reviewed PT/OT not with the pt's family. Pt's sisters became upset and refused to select a SNF. Pt's sister Laura stated she wanted to speak with the therapists and the head of the hospital. MIRIAM informed pt's sister that Care Coordination leadership would be contacted to follow up.MIRIAM will continue to follow pt until transition to next level of care. Pt's family still in need of choice. MIRIAM will place pt on weekend list. Name/Phone number: RISHI Fay [phone] * Teri Willis, PT - 05/31/2025 11:35 AM CDT [facility] Physical Therapy Progress Note Patient: Loretta Penn Med Record Number: [id number] Date of : 1960 Age: [age] year old PPE worn by staff: gloves PPE worn by patient: gown - patient, clean;socks - clean Tech: Mervat Recommendations: Discharge PT Discharge Recommendations: Patient would benefit from multidisciplinary therapy This recommendation is made due to ongoing PT functional needs: address care for self in the home;address functional deficits Recommended Transportation Method: Stretcher/Ambulance Patient is being recommended for post acute care, therefore DME recommendations will be made at thenext level of care. SUBJECTIVE: Subjective: I need therapies. Patient agreeable to PT services. PATIENT GOALS / WHAT MATTERS MOST TO THE PATIENT: Patient's Primary Concern: did not state Pain Assessment: Pain Assessment Pain Scale/Observation: 0-10 Pain Rating Score #1: 5 Sedation Level: 1-Awake and alert Pain Location : Back Pain Descriptors: Aching Non-Pharmacological Intervention: Rest;Reposition PRECAUTIONS: Weight Bearing Status: (NO WBing restrictions) Activity Level: Activity as Tolerated OBJECTIVE: At start of therapy session, patient found in bed General Appearance: Patient is a 64 year old female. Patient found incontinent of urine at PT entry. Observations: Patient incontinent of urine at PT entry. Patient w/ improved standing tolerance in session w/ ongoing difficult dynamic standing balance hindering gait progression. Patient transferredfrom bed<>chair w/ assist x2 and cueing for sequencing steps. Patient fatigued following PT session. Mental Status/Cognition: Level of Consciousness-Adult: Responds to voice Orientation Level: Disoriented to Time;Disoriented to Situation Cognition: Confused Mobility: A gait belt and non-slip socks were used for all out of bed activity this date. Bed Mobility: Supine to Sit: Moderate Assistance;X 2 with HOB in semi-fowlers position Sit to Supine: Moderate Assistance Transfers: Sit to Stand: Moderate Assistance;X 2 Stand to Sit: Moderate Assistance;X 2 Bed to Chair: Total Assistance;X 2 Type of Transfer: Lateral Transfer (dependent bone char puller) Transfer Device: Gait belt;Other (see comment) (B [employer] BI ARCHITECT) Gait: Weight Bearing Status: (NO WBing restrictions) Distance Ambulated (ft): (2+2) Ambulation: Assistive Device: Gait Belt;Other (Comment) (B [employer] BI ARCHITECT) Ambulation: Level of Assistance: Moderate Assistance;X 2 Ambulation: Gait Deviations: Antalgic;Diamante - Decreased;Increased Trunk Flexion;Shuffling gait;Hip/knee flexion during swing phase-- decreased Balance: Balance Scales/Tests Used: Sitting: Static/Dynamic;Standing: Static/Dynamic Sitting - Static: Fair Sitting - Dynamic: Fair - Standing - Static: Poor + Standing - Dynamic: Poor ACTIVITY TOLERANCE: Activity Tolerance: Requires rest breaks TREATMENT/INTERVENTIONS: bed mobility training, transfer training, and gait training AM-PAC 6 Clicks Mobility Raw Score:: 7 EDUCATION: While performing PT, Patient was instructed in:functional mobility training, self-care training, safety awareness/fall precautions , use of adaptive equipment, discharge planning Presented to patient who demonstrates Fair understanding of instructions given. ASSESSMENT: Patient would benefit from additional Physical Therapy sessions to achieve the following functionalgoals to enhance independence. Short Term Goals: Goal Formation Patient unable to participate in goal formulation Patient will perform bed mobility with moderate assist and X 1 Patient will transfer sit to/from stand with moderate assist and X 1 Patient will transfer bed to/from chair with moderate assist and X 1 Patient will ambulate 25 feet with moderate assist and X 1 Clerk Cashier Goal(s): Patient to discharge to appropriate next level of inpatient care. INFORMED CONSENT TO TREATMENT: Plan of care including recommended therapy, goals and frequency, discussed with patient who understands and agrees to proceed. Equipment Issued: gait belt Plan: Patient continues to benefit from skilled therapy services., Continue with goals as established. If patient is discharged from the facility, this note serves as a discharge summary if further physical therapy visits did not occur. Refer to filed flowsheet for further details. Following therapy session, patient left in bed, with call light within reach, with RN, Amada aware, with therapy cues visible on white board, all lines/tubes intact. * Jennifer Burton MD - 05/31/2025 7:32 AM CDT Images from the original note were not included. 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 Pt was initially admitted to medicine service and cardiology consulted regarding severity of heart failure and other valvular issues. On admission, labs significant for BNP 2209, trop 24-->23, Na 122, K 6.1, Cr 1.48, alk phos 365, bili 7.7.Pt was shifted with insulin + dextrose, given patiromer and. She was started on IV furosemide TID for acute HFrEF. EKG showing Qtc prolongation. Pt noted to be hypoglycemic in 40s on 05/16 AM, hypoglycemia protocol initiated. Patient transferred to primary cardiology service on 05/16 d/t concern that patient may develop cardiogenic shock. On 05/17, decision was made to proceed with light sedation in order to be able to provide meds to pt given that she was not taking any orals d/t sedation; additionally Na in 121-122 range and pt would need more frequent lab draws for mgmt. On transfer to ICU, pt increasing agitated and given IV ativan. Then noted to be obtunded, intubated for airway protection. She was given hypertonic saline 2x, and was also briefly on levophed for BP support. ICU team c/s for mech vent management. Started on nitroprusside drip, but then discontinued d/t no proper BP measurements. Palliative consulted regarding family's understanding of medical conditions and difficult decision making. A line and central line placed. Sedation was discontinued on 05/19 AM, pt responding to name but not following commands. Noted to have afib with RVR overnight, proceeded with CHANCE DCCV. On CHANCE on 05/20, pt noted to have LA thrombus, DCCV was aborted. Lactic increasing on 05/20, given 250cc bolus for c/f hypovolemic shock. Patient unable to extubate d/t inability to follow commands despite weaning sedation between 05/21-05/22. Extubated on 05/24. Passed swallow study on 05/27, NG removed and patient transferred to floor. Objective Temp: [97.3 ??F (36.3 ??C)-99.3 ??F (37.4 ??C)] 99.1 ??F (37.3 ??C) Pulse: [63-92] 70 Resp: [16-18] 18 BP: (84-136)/(44-121) 87/52 Weight change: Intake/Output Summary (Last 24 hours) at 05/31/2025 0732 Last data filed at 05/30/2025 1527 Gross per 24 hour Intake 120 ml Output 1 ml Net 119 ml Physical Exam Vitals reviewed. Cardiovascular: Pulses: Normal pulses. Pulmonary: Effort: Pulmonary effort is normal. Breath sounds: Normal breath sounds. Abdominal: Palpations: Abdomen is soft. Musculoskeletal: Right lower leg: Edema present. Left lower leg: Edema present. Skin: General: Skin is warm. Neurological: Mental Status: She is alert. Mental status is at baseline. Psychiatric: Mood and Affect: Mood normal. Scheduled Medications: Medications[1] PRN Medications: Medications[2] Continuous Infusions: Medications[3] Laboratory Data Recent Labs Component Name 05/31/2522005/30/25 0305 05/29/25 0331 WBC 5.7 5.4 4.4 HGB 12.6 12.6 12.5 HCT 38.2 38.1 38.7 PLTCOUNT 301 302 314 MCV 102.7* 101.6* 102.1* Recent Labs Component Name 05/15/25 1454 PT 29.5* INR 2.9 Recent Labs Component Name 05/31/2522005/30/25 0305 05/29/25 0331 NA 136 136 141 POTASSIUM 4.5 3.9 3.8 CL 102 101 103 CO2 27 30* 30* BUN 28* 30* 29* CREATININE 0.96 0.89 0.85 Recent Labs Component Name 05/31/2522005/30/25 0305 05/29/25 0331 CALCIUM 9.1 9.0 9.4 PHOS 4.0 4.0 4.7 Recent Labs Component Name 05/31/2522005/30/25 0305 05/29/25 0331 05/18/25 0933 05/18/25 0305 05/15/25 2257 05/15/25 2020 PROT 6.0 6.1 5.8* - - - - ALB 2.3* 2.2* 2.0* - 2.6* - - ALKPHOS 258* 220* 203* - - - - AST 54* 55* 49* - - - - ALT 35 30 27 - - - - TBILI 3.5* 3.9* 3.7* - - - 7.0* DBILI - - - - 4.4* - 4.9* - = values in this interval not displayed. No results for input(s): CKTOTAL, CKMBCK2, TROPONINI in the last 21490 hours. No results for input(s): VANCIRMA VALADEZTROUGH in the last 98343 hours. Microbiology Results (Displays last 21 days for this encounter ONLY) Procedure Component Value - Date/Time SARS-COV-2 (COVID-19) RAPID [[id number]] (Normal) Collected: 05/27/25 1439 Lab Status: Final result Specimen: Microbiology from Nasopharyngeal Updated: 05/27/25 1518 COVID-19 PCR Not detected Narrative: The [employer] Xpert Xpress SARS-COV-2 has been authorized by the Food and Drug Administration (FDA) under an Emergency Use Authorization (EUA). This test has been validated in accordance with the FDA'sguidance document Policy for Diagnostic Testing in Laboratories Certified to perform High Complexity Testing under CLIA prior to Emergency Use Authorization for Coronavirus Disease-2019 during the Public Health Emergency issued on December 08, 2019. FDA independent review of this validation is pending. This test is only authorized for the duration of the time the declaration that circumstances exist justifying the authorization of emergency use of in vitro diagnostic tests for detection of SARS-COV-2 virus and/or diagnosis of COVID-19 infection under 564(b) (1) of the Act. 21 U.S.C. 360bbb-3 (b) (1), unless the authorization is terminated or revoked sooner. Fact Sheets for this EUA assay are available upon request. CULTURE SPUTUM+GRAM STAIN [[id number]] Collected: 05/19/25 1620 Lab Status: Final result Specimen: Microbiology from Sputum Updated: 05/21/25 0808 Culture Light normal oropharyngeal alisa Gram Stain Moderate Gram-negative bacilli Moderate Gram-positive cocci Light Yeast >= 25 per low power field Polymorphonuclear cells <10 per low power field Squamous epithelial cells CULTURE BLOOD [[id number]] (Normal) Collected: 05/17/25 1440 Lab Status: Final result Specimen: Blood Peripheral Updated: 05/22/25 1931 Culture No growth day 5 MRSA PCR [[id number]] (Normal) Collected: 05/17/25 1440 Lab Status: Final result Specimen: Microbiology from Nasal Updated: 05/17/25 2106 MRSA DNA by PCR Not detected Narrative: Methicillin-resistant Staphylococcus aureus (MRSA) DNA is not detected (presumed not colonized withMRSA). CULTURE BLOOD [[id number]] (Normal) Collected: 05/17/25 1436 Lab Status: Final result Specimen: Blood Peripheral Updated: 05/22/251930 Culture No growth day 5 Imaging No results found. Relevant labs and imaging data reviewed on [facility]. Assessment and Plan Hyperkalemia (POA: Yes) Hyperbilirubinemia (POA: Yes) Hyponatremia (POA: Yes) Transaminitis (POA: Yes) Elevated alkaline phosphatase level (POA: Yes) Acute on chronic congestive heart failure, unspecified heart failure type (HCC) (POA: Yes) Obesity with serious comorbidity, unspecified class, unspecified obesity type (POA: Yes) Demand ischemia (HCC) (POA: Yes) History of endocarditis (POA: Yes) Agitation (POA: Yes) Hypothyroidism (POA: Yes) Atrial fibrillation (HCC) (POA: Yes) Prolonged Q-T interval on ECG (POA: Yes) Pericardial effusion (HCC) (POA: Yes) Acute kidney injury (POA: Yes) Type 2 diabetes mellitus, without long-term current use of insulin (HCC) (POA: Yes) Shortness of breath (POA: Unknown) Assessment & Plan Hyperkalemia Hyponatremia - Pt hyperkalemic on arrival, shifted with insulin + dextrose and started on lokelma - Noted to be HypoNa, though baseline may be close to 130-132 - Likely hypervolemic hyponatremia iso cardiogenic shock and ADHF PLAN: - Replete lytes as needed Obesity with serious comorbidity, unspecified class, unspecified obesity type Type 2 diabetes mellitus, without long-term current use of insulin (HCC) - per notes from 04/19, home regimen is 17U lantus in AM, 12U TID AC + slide 0-10U - Noted to have hypoglycemic episode on - BG has been ranging 220-300s on 05/20 PLAN: - Cont SSI 0-18U, accuchecks with meals - Cont lantus 5U qhs Agitation - Pt noted to be obtunded at 4AM on 05/17, was given ativan earlier In the night for agitation - EEG with generalized slowing - sedation weaned off on M - CT head 05/20 - no acute abnormalities - At baseline, pt responds to her name and is able to express what she wants/doesn't want per sister. Has very limited understanding of her medical conditions iso TBI; sisters administer her meds, and otherwise patient reportedly does ADLs. non compliant with cardiac diet at home, and has numerous admissions for HF exacerbations in past - AVOID BENZOS Demand ischemia (HCC) Acute on chronic congestive heart failure, unspecified heart failure type (HCC) History of endocarditis - TTE with EF of 25% on 05/27/25 Patient's blood pressure is staying soft Had recent cardiogenic/mixed shock Not volume overloaded, discontinued Bumex - Empagliflozin 10mg Continue metop succ and entresto -regarding severe TR: not to have inpt intervention but will need outpt f/u. Pt was supposed to follow with [facility], advise to keep that appointment but will refer to [facility] cardiology in case - Resumed home cefadroxil; cont on cefadroxil 500mg BID on discharge Atrial fibrillation (HCC) Prolonged Q-T interval on ECG - Cont home xarelto, had not previously been getting due to agitation - RVR resolved after digoxin load - Unable to do DCCV d/t LA thrombus PLAN: - Cont xarelto - Will need repeat CHANCE in 3 months on discharge to reassess thrombus Hypothyroidism - Cont home levothyroxine Acute kidney injury - BUN increasing, will ctm RFP. Likely iso hypovolemia from diuresis. Diuretic holiday 05/26 Shortness of breath Pericardial effusion (HCC) Resolved Hyperbilirubinemia Transaminitis Liver ultrasound; 05/17 with cirrhotic morphology and congestive hepatopathy Cholecystectomy done decades ago Will need GI follow up OP Diet: DIETARY NUTRITION SUPPLEMENTS DIET MODIFIED CONSISTENCY DVT Prophylaxis: Apixaban Code Status: Full Code Electronically Signed By: Jennifer Burton MD 05/31/2025 7:32 AM [1] 0.9% NaCl 3 mL Intracatheter q8h apixaban 5 mg Oral BID bumetanide 0.5 mg Oral BID busPIRone 10 mg Oral BID cefadroxil 500 mg Oral BID cyanocobalamin 500 mcg Oral QDAY empagliflozin 10 mg Oral QDAY escitalopram 10 mg Oral QDAY guaiFENesin ER 12hr 600 mg Oral q12h insulin aspart 0-18 Units Subcutaneous TID WC insulin glargine 5 Units Subcutaneous AT BEDTIME levothyroxine 75 mcg Oral QAM metoprolol succinate XL 24hr 100 mg Oral QDAY polyethylene glycol 3350 17 g Oral QDAY sacubitril-valsartan 0.5 tablet Oral BID senna 17.2 mg Oral QDAY spironolactone 12.5 mg Oral QDAY vitamin D3 5,000 Units Oral QDAY [2] SALINE LOCK, INSERT AND MAINTAIN AND 0.9% NaCl AND 0.9% NaCl acetaminophen albuterol HFA dextrose IV for hypoglycemia OR dextrose IV for hypoglycemia OR glucagon glucose (Diabetic Use) gel loperamide [3] * Teri Willis, PT - 05/30/2025 2:35 PM CDT [facility] Physical Therapy Progress Note Patient: Loretta Penn Med Record Number: [id number] Date of : 1960 Age: [age] year old PPE worn by staff: gloves PPE worn by patient: (pt wearing hospital gown soiled) Tech: Krupa Recommendations: Discharge PT Discharge Recommendations: Patient would benefit from multidisciplinary therapy This recommendation is made due to ongoing PT functional needs: address functional deficits Recommended Transportation Method: Stretcher/Ambulance Patient is being recommended for post acute care, therefore DME recommendations will be made at thenext level of care. SUBJECTIVE: Subjective: Patient agreeable to PT services. PATIENT GOALS / WHAT MATTERS MOST TO THE PATIENT: Patient's Primary Concern: did not state Pain Assessment: Pain Assessment Pain Scale/Observation: No/denies pain PRECAUTIONS: Weight Bearing Status: (NO WBing restrictions) Activity Level: Activity as Tolerated OBJECTIVE: At start of therapy session, patient found in patient bedside chair and with chair alarm on General Appearance: Patient found incontinent of stool and urine at PT entry. Observations: Patient fatigued following sitting in bedside chair after OT session requiring a dependent lateral transfer back to bed as well as dependent pericare. Mental Status/Cognition: Level of Consciousness-Adult: Responds to voice Orientation Level: Disoriented to Place;Disoriented to Situation;Disoriented to Time Cognition: Poor attention or concentration Mobility: A gait belt and non-slip socks were used for all out of bed activity this date. Bed Mobility: Supine to Sit: Activity Does Not Occur (greeted in chair) Sit to Supine: Maximum Assistance;X 2 Transfers: Sit to Stand: Activity Does Not Occur Stand to Sit: Activity Does Not Occur Bed to Chair: Total Assistance;X 2 Type of Transfer: Lateral Transfer (dependent bone char puller) Transfer Device: Gait belt Gait: Weight Bearing Status: (NO WBing restrictions) Distance Ambulated (ft): 0 FEET (unable to maintain standing balance to progress steps at EOB) Balance: Balance Scales/Tests Used: Sitting: Static/Dynamic;Standing: Static/Dynamic Sitting - Static: Fair Sitting - Dynamic: Fair - Standing - Static: Not tested Standing - Dynamic: Not tested ACTIVITY TOLERANCE: Activity Tolerance: Requires rest breaks TREATMENT/INTERVENTIONS: bed mobility training and transfer training AM-PAC 6 Clicks Mobility Raw Score:: 7 EDUCATION: While performing PT, Patient was instructed in:functional mobility training, self-care training, safety awareness/fall precautions , discharge planning Presented to patient who demonstrates Questionable understanding of instructions given. ASSESSMENT: Patient would benefit from additional Physical Therapy sessions to achieve the following functionalgoals to enhance independence. Short Term Goals: Goal Formation Patient unable to participate in goal formulation Patient will perform bed mobility with moderate assist and X 1 Patient will transfer sit to/from stand with moderate assist and X 1 Patient will transfer bed to/from chair with moderate assist and X 1 Patient will ambulate 25 feet with moderate assist and X Clerk Cashier Goal(s): Patient to discharge to appropriate next level of inpatient care. INFORMED CONSENT TO TREATMENT: Plan of care is discussed but patient with questionable understanding. Equipment Issued: none Plan: Patient continues to benefit from skilled therapy services., Continue with goals as established. If patient is discharged from the facility, this note serves as a discharge summary if further physical therapy visits did not occur. Refer to filed flowsheet for further details. Following therapy session, patient left in bed, with call light within reach, with RN, Amada aware, with therapy cues visible on white board, all lines/tubes intact. * Richar Curry SLP - 05/30/2025 2:05 PM CDT [facility] Swallow Treatment Patient: Loretta Penn Med Record Number: [id number] Date of : 1960 Age: [age] year old PPE: PPE worn by staff: gloves;mask - procedural PPE worn by patient: gown - patient, clean;socks - clean Impressions: Patient's swallow function assessed at bedside. Patient completed trial of thin liquids and puree consistencies with no overt s/s of aspiration. ST recommends continuing with Soft & Bite Sized (6)/Advanced Soft (DYS3) and thin liquids and medication as tolerated. ST will continue to follow patient to assess diet tolerance and upgrade diet as able. Recommendations: Diet Liquids Recommendation: Thin/ Thin (0) Diet Solids Recommendation: Soft & Bite Sized (6)/Advanced Soft Dys 3 Recommended Form of Meds: As Tolerated Compensatory Swallowing Strategies: 90 Degrees elevation for all oral intake;Small bites/sips;Eat/Feed slowly Recommended Tests/Consults: Recommendations: Dysphagia Treatment Discharge Recommendations: Patient will benefit from multidisciplinary inpatient therapies. Speech therapy is recommended to improve swallow function. SUBJECTIVE: Patient Goals: NA Pain Assessment: 0/10 OBJECTIVE: Level of Consciousness: alert Orientation Level: oriented to person Positioning: Upright in bed Respiratory Status: Room Air Swallow Trials: Ice chips: Presentation: Spoon-Assisted Oral: Within Functional Limits Pharyngeal: Within Functional LImits Thin Liquid: Presentation: Straw-Assisted Oral: Increased Anterior to Posterior Transit Pharyngeal: Delayed Swallow Puree: Presentation: Spoon-Assisted Oral: Within Functional Limits Pharyngeal: Within Functional LImits Solid: Presentation: Assisted Oral: Impaired Mastication;Increased Anterior to Posterior Transit;Delayed Initiation Pharyngeal: Delayed Swallow Assessment: Risk For Aspiration: Mild Primary Diagnostic Impression - Oral: No dysphagia Primary Diagnostic Impression - Pharyngeal: Mild;Dysphagia Treatment/Education/Interventions: While performing THEATRE PROGRAM DIRECTOR, Patient was instructed in: diet/liquid recommendations. Patient demonstrated Fair understanding of instructions given. Nurse contacted regarding results of treatment session. INFORMED CONSENT TO TREATMENT: Plan of care including recommended therapy, goals and frequency, discussed with patient who understands and agrees to proceed. Short Term Goals Patient will tolerate recommended food and liquid consistencies without clinical signs of aspiration. Assisted Goal (s): Patient to be independent/baseline with functional mobility and self care and be able to safely discharge to prior level of care. Richar Ayala M.A., [facility]-THEATRE PROGRAM DIRECTOR Speech Language Pathologist [phone] * Amada Love RN - 05/30/2025 11:28 AM CDT Problem: Neurosensory - Adult Goal: Achieves stable or improved neurological status Description: INTERVENTIONS Outcome: Progressing Goal: Remains free of injury related to seizures activity Description: INTERVENTIONS: Outcome: Progressing Goal: Achieves maximal functionality and self care Description: INTERVENTIONS: Outcome: Progressing Problem: Respiratory - Adult Goal: Achieves optimal ventilation and oxygenation Description: INTERVENTIONS: Outcome: Progressing Problem: Cardiovascular - Adult Goal: Maintains optimal cardiac output and hemodynamic stability Description: INTERVENTIONS: Outcome: Progressing Goal: Absence of cardiac dysrhythmias or at baseline Description: INTERVENTIONS: Outcome: Progressing Problem: Skin/Tissue Integrity - Adult Goal: Skin integrity remains intact Description: INTERVENTIONS: Outcome: Progressing Goal: Incisions, wounds, or drain sites healing without S/S of infection Description: INFECTIONS: Outcome: Progressing Goal: Oral mucous membranes remain intact Description: INTERVENTIONS: Outcome: Progressing Problem: Neurovascular Musculoskeletal - Adult Goal: Return mobility to safest level of function Description: INTERVENTIONS: Outcome: Progressing Goal: Maintain proper alignment of affected body part Description: INTERVENTIONS: Outcome: Progressing Goal: Return ADL status to a safe level of function Description: INTERVENTIONS: Outcome: Progressing Goal: Absence or reduction of edema Description: INTERVENTIONS Outcome: Progressing Goal: Maintains or improves tissue perfusion Description: INTERVENTIONS Outcome: Progressing Problem: Genitourinary - Adult Goal: Maintains or returns to baseline genitourinary function Description: INTERVENTIONS: Outcome: Progressing Goal: Urinary catheter remains patent Description: INTERVENTIONS: Outcome: Progressing Problem: Infection - Adult Goal: Infections are decreased or avoided Description: INTERVENTIONS: Outcome: Progressing Problem: Metabolic/Fluid and Electrolytes - Adult Goal: Electrolytes maintained within normal limits Description: INTERVENTIONS: Outcome: Progressing Goal: Hemodynamic stability and optimal renal function maintained Description: INTERVENTIONS: Outcome: Progressing Goal: Glucose maintained within prescribed range Description: INTERVENTIONS: Outcome: Progressing Problem: Hematologic - Adult Goal: Maintains hematologic stability Description: INTERVENTIONS: Outcome: Progressing Problem: Pain/Discomfort Goal: Patient exhibits reduced pain/discomfort as evidenced by pain scores Outcome: Progressing Goal: Patient uses pharmacological and non-pharmacological pain management strategies. Outcome: Progressing Goal: Patient verbalizes acceptable level of pain relief and ability to engage in desired activity. Outcome: Progressing Problem: Restraint Safety Goal: Free from restraint(s) Description: INTERVENTIONS: Outcome: Progressing Goal: Remains free of injury from restraints Description: INTERVENTIONS: Outcome: Progressing Problem: Fall Risk Goal: Fall risk and fall related injury risk are minimized (interventions related to the fall risk can be found in the flowsheet documentation) Outcome: Progressing Problem: Gastrointestinal - Adult Goal: Minimal or absence of nausea and vomiting Description: INTERVENTIONS: Outcome: Progressing Goal: Maintains or returns to baseline bowel function Description: INTERVENTIONS: Outcome: Progressing Goal: Maintains adequate nutritional intake Description: INTERVENTIONS: Outcome: Progressing Problem: Anxiety Goal: Will report anxiety at manageable levels Description: INTERVENTIONS Outcome: Progressing Problem: Coping Goal: Patient/Healthcare Agent able to verbalize concerns and demonstrate effective coping strategies Description: INTERVENTIONS Outcome: Progressing Problem: Decision Making Goal: Patient/Healthcare Agent able to effectively weigh alternatives and participate in decision making related to treatment and care. Description: INTERVENTIONS Outcome: Progressing Problem: Behavior Goal: Pt/Family maintain appropriate behavior and adhere to behavioral management agreement, if implemented Description: INTERVENTIONS Outcome: Progressing Problem: Depression/Self Harm Goal: Effect of psychiatric condition will be minimized and patient will be protected from self harm Description: INTERVENTIONS Outcome: Progressing Problem: Substance Abuse/Detox Goal: Will have no detox symptoms and will verbalize plan for changing drug- related behavior Description: INTERVENTIONS Outcome: Progressing Problem: Oral Intake: Inadequate oral intake Goal: Total intake will meet estimated nutrient needs Outcome: Progressing Problem: Balance Goal: LTG - Patient will maintain standing and sitting balance to allow for completion of daily activities Outcome: Progressing Goal: LTG - Patient will demonstrate Intervention to enhance balance for safe completion of daily activities Outcome: Progressing * Nena Quiroz OT - 05/30/2025 10:36 AM CDT [facility] Occupational Therapy Progress Note Patient: Loretta Penn [place] Record Number: [id number] Date of : 1960 Age: [age] year old PPE worn by staff: gloves;mask - procedural PPE worn by patient: gown - patient, clean;socks - clean Tech: Recommendations: Discharge OT Discharge Recommendations: Patient would benefit from multidisciplinary therapy Nurse and Physical Therapist contacted regarding patient status and/or discharge plan. Activity Level: as tolerated PRECAUTIONS: Medical/Surgical Precaution: (Fall) SUBJECTIVE: Subjective: Patient agreeable to therapy. PATIENT GOALS / WHAT MATTERS MOST TO THE PATIENT: Pain Assessment: Pain Assessment Pain Scale/Observation: No/denies pain OBJECTIVE: At start of therapy session, patient found in patient bedside chair and with no alarm General Appearance: 64 y/o female, supine in bed, NAD Vitals: (*Assess the 3 levels of oxygen saturations both for room air and 02 unless rest on room air is 88% or less). Rest BP: 91/65 (74) HR: 75BPM Sp02 Sp02 100% 98% 2L NC Room air Ex/Gait/Activity Without 02 BP: 82/62 (69) HR: 85 Sp02 90% Room air Post Activity BP: 96/53 (67) HR: 77 Sp02 Sp02 96% Room air Observations: no s/s of distress during tx session Mental Status/Cognition: Attention Span: Appears intact Following Commands: Follows one step commands with repetition/cues Mobility: a gait belt and non-slip socks were used for all out of bed activity this date. Bed Mobility: Supine to Sit: Moderate Assistance;X 2 with HOB in semi-fowlers position Transfers: Sit to Stand: Moderate Assistance;X 2 Stand to Sit: Moderate Assistance;X 2 Bed to Chair: Moderate Assistance to Right;X 2 Type of Transfer: (Stand Step) Transfer Device: Walker-2 Wheeled;Gait belt Functional Ambulation: Patient ambulated 3-4 steps to bedside chair with moderate x2 assist using 2WW. Balance: Balance Scales/Tests Used: Sitting: Static/Dynamic;Standing: Static/Dynamic Sitting - Static: Fair + Sitting - Dynamic: Fair + Standing - Static: Fair +;With Both Upper Extremity's Support Standing - Dynamic: Fair -;With Both Upper Extremity's Support Activities of Daily Living: Footwear: Total Assistance Toileting: Total Assistance (bowel incontinence requiring clean up at bed level) Splint Issued/Checked: none ACTIVITY TOLERANCE: Activity Tolerance: Requires rest breaks AM-PAC 6 Clicks Daily Activity Raw Score:: 12 TREATMENT/INTERVENTIONS: ADL training Functional transfer training Bed mobility Safety awareness EDUCATION: While performing OT, Patient was instructed in:functional mobility training, self-care training, safety awareness/fall precautions Presented to patient who demonstrates Questionable understanding of instructions given. INFORMED CONSENT TO TREATMENT: Plan of care including recommended therapy, goals and frequency, discussed with patient who understands and agrees to proceed. ASSESSMENT: Patient continues to benefit from skilled Occupational Therapy to achieve the following functional goals. Short Term Goals: Goal Formation With patient Patient will increase orientation to person and place Patient will perform grooming at edge of bed and with stand by assist Patient will transfer to bedside commode with moderate assist and X 2 Patient will perform supine to/from sit with minimal assist Patient will transfer sit to stand with moderate assist Assisted Goal(s): Patient to discharge to appropriate next level of inpatient care Plan: Continue with goals as established. If patient is discharged from the facility, this note serves as a discharge summary if further occupational therapy visits did not occur. Refer to filed flowsheet for further details. Following therapy session, patient left in patient bedside chair , with chair alarm on and positioned under patient's buttocks , with call light within reach. * Mariah Yadav MD - 05/30/2025 8:51 AM CDT Images from the original note were not included. [facility] Internal Medicine Progress Note Name: Loretta Penn Room/Bed: 7730/ : 1960 64 year old PCP: KYA Salinas Admit Date/Time: 05/15/2025 6:17 PM LOS: 15 Subjective Interval update: At baseline mental status. Called POA to update. Doing okay overall. Noted elevated by down trending bilirubin. Liver ultrasound this admission shows cirrhotic morphology. Will need OP GI follow up.Noted MCV 101.6. 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 Pt was initially admitted to medicine service and cardiology consulted regarding severity of heart failure and other valvular issues. On admission, labs significant for BNP 2209, trop 24-->23, Na 122, K 6.1, Cr 1.48,alk phos 365, bili 7.7. Pt was shifted with insulin + dextrose, given patiromer and. She was started on IV furosemide TID for acute HFrEF. EKG showing Qtc prolongation. Pt noted to be hypoglycemic in40s on 05/16 AM, hypoglycemia protocol initiated. Patient transferred to primary cardiology service on 05/16 d/t concern that patient may develop cardiogenic shock. On 05/17, decision was made to proceed with light sedation in order to be able to provide meds to pt given that she was not taking any orals d/t sedation; additionally Na in 121-122 range and pt would need more frequent lab draws for mgmt. On transfer to ICU, pt increasing agitated and given IV ativan. Then noted to be obtunded, intubated for airway protection. She was given hypertonic saline 2x, and was also briefly on levophed for BP support. ICU team c/s for mech vent management. Started on nitroprusside drip, but then discontinued d/t no proper BP measurements. Palliative consulted regarding family's understanding of medical conditions and difficult decision making. A line and central line placed. Sedation was discontinued on 05/19 AM, pt responding to name but not following commands. Noted to have afib with RVR overnight, proceeded with CHANCE DCCV. On CHANCE on 05/20, pt noted to have LA thrombus, DCCV was aborted. Lactic increasing on 05/20, given 250cc bolus for c/f hypovolemic shock. Patient unable to extubate d/t inability to follow commands despite weaning sedation between 05/21-05/22. Extubated on 05/24. Passed swallow study on 05/27, NG removed and patient transferred to floor. Objective Temp: [97.5 ??F (36.4 ??C)-99.5 ??F (37.5 ??C)] 99.3 ??F (37.4 ??C) Pulse: [67-89] 67 Resp: [18-19] 19 BP: (81-110)/(40-73) 94/40 Weight change: Intake/Output Summary (Last 24 hours) at 05/30/2025 0851 Last data filed at 05/29/2025 0956 Gross per 24 hour Intake 240 ml Output -- Net 240 ml Physical Exam Vitals reviewed. Cardiovascular: Pulses: Normal pulses. Pulmonary: Effort: Pulmonary effort is normal. Breath sounds: Normal breath sounds. Abdominal: Palpations: Abdomen is soft. Musculoskeletal: Right lower leg: Edema present. Left lower leg: Edema present. Skin: General: Skin is warm. Neurological: Mental Status: She is alert. Mental status is at baseline. Psychiatric: Mood and Affect: Mood normal. Scheduled Medications: Medications[1] PRN Medications: Medications[2] Continuous Infusions: Medications[3] Laboratory Data Recent Labs Component Name 05/30/25 03005/29/25 0331 05/28/25 0633 WBC 5.4 4.4 4.8 HGB 12.6 12.5 13.1 HCT 38.1 38.7 40.7 PLTCOUNT 302 314 322 MCV 101.6* 102.1* 104.4* Recent Labs Component Name 05/15/25 1454 PT 29.5* INR 2.9 Recent Labs Component Name 05/30/25 03005/29/25 0331 05/28/25 1021 NA 136 141 141 POTASSIUM 3.9 3.8 3.9 CL 101 103 102 CO2 30* 30* 33* BUN 30* 29* 31* CREATININE 0.89 0.85 0.81 Recent Labs Component Name 05/30/25 03005/29/25 0331 05/28/25 1021 05/28/25 0634 CALCIUM 9.0 9.4 9.6 9.8 PHOS 4.0 4.7 - 4.6 Recent Labs Component Name 05/30/25 03005/29/25 0331 05/28/25 1021 05/18/25 0933 05/18/25 0305 05/15/25 2257 05/15/25 2020 PROT 6.1 5.8* 6.5 - - - - ALB 2.2* 2.0* 2.3* - 2.6* - - ALKPHOS 220* 203* 244* - - - - AST 55* 49* 58* - - - - ALT 30 27 31 - - - - TBILI 3.9* 3.7* 4.5* - - - 7.0* DBILI - - - - 4.4* - 4.9* - = values in this interval not displayed. No results for input(s): CKTOTAL, CKMBCK2, TROPONINI in the last 00485 hours. No results for input(s): VANCORNDM, VANCTROUGH in the last 17594 hours. Microbiology Results (Displays last 21 days for this encounter ONLY) Procedure Component Value - Date/Time SARS-COV-2 (COVID-19) RAPID [[id number]] (Normal) Collected: 05/27/25 1439 Lab Status: Final result Specimen: Microbiology from Nasopharyngeal Updated: 05/27/25 1518 COVID-19 PCR Not detected Narrative: The [employer] Xpert Xpress SARS-COV-2 has been authorized by the Food and Drug Administration (FDA) under an Emergency Use Authorization (EUA). This test has been validated in accordance with the FDA'sguidance document Policy for Diagnostic Testing in Laboratories Certified to perform High Complexity Testing under CLIA prior to Emergency Use Authorization for Coronavirus Disease-2019 during the Public Health Emergency issued on December 08, 2019. FDA independent review of this validation is pending. This test is only authorized for the duration of the time the declaration that circumstances exist justifying the authorization of emergency use of in vitro diagnostic tests for detection of SARS-COV-2 virus and/or diagnosis of COVID-19 infection under 564(b) (1) of the Act. 21 U.S.C. 360bbb-3 (b) (1), unless the authorization is terminated or revoked sooner. Fact Sheets for this EUA assay are available upon request. CULTURE SPUTUM+GRAM STAIN [[id number]] Collected: 05/19/25 1620 Lab Status: Final result Specimen: Microbiology from Sputum Updated: 05/21/25 0808 Culture Light normal oropharyngeal alisa Gram Stain Moderate Gram-negative bacilli Moderate Gram-positive cocci Light Yeast >= 25 per low power field Polymorphonuclear cells <10 per low power field Squamous epithelial cells CULTURE BLOOD [[id number]] (Normal) Collected: 05/17/25 1440 Lab Status: Final result Specimen: Blood Peripheral Updated: 05/22/25 1931 Culture No growth day 5 MRSA PCR [[id number]] (Normal) Collected: 05/17/25 1440 Lab Status: Final result Specimen: Microbiology from Nasal Updated: 05/17/25 2106 MRSA DNA by PCR Not detected Narrative: Methicillin-resistant Staphylococcus aureus (MRSA) DNA is not detected (presumed not colonized withMRSA). CULTURE BLOOD [[id number]] (Normal) Collected: 05/17/25 1436 Lab Status: Final result Specimen: Blood Peripheral Updated: 05/22/251930 Culture No growth day 5 Imaging No results found. Relevant labs and imaging data reviewed on Epic. Assessment and Plan Hyperkalemia (POA: Yes) Hyperbilirubinemia (POA: Yes) Hyponatremia (POA: Yes) Transaminitis (POA: Yes) Elevated alkaline phosphatase level (POA: Yes) Acute on chronic congestive heart failure, unspecified heart failure type (HCC) (POA: Yes) Obesity with serious comorbidity, unspecified class, unspecified obesity type (POA: Yes) Demand ischemia (HCC) (POA: Yes) History of endocarditis (POA: Yes) Agitation (POA: Yes) Hypothyroidism (POA: Yes) Atrial fibrillation (HCC) (POA: Yes) Prolonged Q-T interval on ECG (POA: Yes) Pericardial effusion (HCC) (POA: Yes) Acute kidney injury (POA: Yes) Type 2 diabetes mellitus, without long-term current use of insulin (HCC) (POA: Yes) Shortness of breath (POA: Unknown) Assessment & Plan Hyperkalemia Hyponatremia - Pt hyperkalemic on arrival, shifted with insulin + dextrose and started on lokelma - Noted to be HypoNa, though baseline may be close to 130-132 - Likely hypervolemic hyponatremia iso cardiogenic shock and ADHF PLAN: - Replete lytes as needed Obesity with serious comorbidity, unspecified class, unspecified obesity type Type 2 diabetes mellitus, without long-term current use of insulin (HCC) - per notes from 04/19, home regimen is 17U lantus in AM, 12U TID AC + slide 0-10U - Noted to have hypoglycemic episode on M - BG has been ranging 220-300s on 05/20 PLAN: - Cont SSI 0-18U, accuchecks with meals - Cont lantus 5U qhs Agitation - Pt noted to be obtunded at 4AM on 05/17, was given ativan earlier In the night for agitation - EEG with generalized slowing - sedation weaned off on M - CT head 05/20 - no acute abnormalities - At baseline, pt responds to her name and is able to express what she wants/doesn't want per sister. Has very limited understanding of her medical conditions iso TBI; sisters administer her meds, and otherwise patient reportedly does ADLs. non compliant with cardiac diet at home, and has numerous admissions for HF exacerbations in past PLAN: - AVOID BENZOS - Palliative consulted for decision making and complex family situation, following peripherally Demand ischemia (HCC) Acute on chronic congestive heart failure, unspecified heart failure type (HCC) History of endocarditis - TTE with EF of 25% on 05/27/25. - Furosemide IV TID given on day of admission - metop and aldactone held on admission as pt not taking oral meds - Manas removed - Levo discontinued - diuresed with bumex 4mg TID earlier in ICU amdission - Pt on cefadroxil 100mg BID for chronic ppx - TTE does not show any vegetations, though noted to have L atrial mass on CCTA 07/2024 - Became hypothermic on 05/17 - Infectious w/u negative so far (CXR, UA, Bcx) - 5d course cefepime finished on 05/22 PLAN: - Bumex 0.5mg BID; continue on discharge - Empagliflozin 10mg, metop succ 100mg qd, entresto 12, aldactone 12.5 -regarding severe TR: not to have inpt intervention but will need outpt f/u. Pt was supposed to follow with [facility], advise to keep that appointment but will refer to [facility] cardiology in case - Resumed home cefadroxil; cont on cefadroxil 500mg BID on discharge Atrial fibrillation (HCC) Prolonged Q-T interval on ECG - Cont home xarelto, had not previously been getting due to agitation - RVR resolved after digoxin load - Unable to do DCCV d/t LA thrombus PLAN: - Cont xarelto - metop succ 100mg qdaily - Will need repeat CHANCE in 3 months on discharge to reassess thrombus Hypothyroidism - Cont home levothyroxine Acute kidney injury - BUN increasing, will ctm RFP. Likely iso hypovolemia from diuresis. Diuretic holiday 05/26 Shortness of breath Pericardial effusion (HCC) Pt had to be mechanically intubated on 8/8 AM for c/f airway protection PLAN: - Extubated 05/24, passed swallow eval - Pulmonary toilet Hyperbilirubinemia Transaminitis TB elevated but decreasing AST only mildly elevated Liver ultrasound; 05/17 with cirrhotic morphology and congestive hepatopathy Cholecystectomy done decades ago Will need GI follow up OP Diet: DIET MODIFIED CONSISTENCY DIETARY NUTRITION SUPPLEMENTS DVT Prophylaxis: Apixaban Code Status: Full Code Ready to medically d/c home. Pending snf placement. Electronically Signed By: Greg Yadav MD 05/30/2025 8:51 AM [1] 0.9% NaCl 3 mL Intracatheter q8h apixaban 5 mg Oral BID bumetanide 0.5 mg Oral BID busPIRone 10 mg Oral BID cefadroxil 500 mg Oral BID cyanocobalamin 500 mcg Oral QDAY empagliflozin 10 mg Oral QDAY escitalopram 10 mg Oral QDAY guaiFENesin ER 12hr 600 mg Oral q12h insulin aspart 0-18 Units Subcutaneous TID WC insulin glargine 5 Units Subcutaneous AT BEDTIME levothyroxine 75 mcg Oral QAM metoprolol succinate XL 24hr 100 mg Oral QDAY polyethylene glycol 3350 17 g Oral QDAY sacubitril-valsartan 0.5 tablet Oral BID senna 17.2 mg Oral QDAY spironolactone 12.5 mg Oral QDAY vitamin D3 5,000 Units Oral QDAY [2] SALINE LOCK, INSERT AND MAINTAIN AND 0.9% NaCl AND 0.9% NaCl acetaminophen albuterol HFA dextrose IV for hypoglycemia OR dextrose IV for hypoglycemia OR glucagon glucose (Diabetic Use) gel loperamide [3] * Amada Love RN - 05/29/2025 5:34 PM CDT Problem: Neurosensory - Adult Goal: Achieves stable or improved neurological status Description: INTERVENTIONS Outcome: Progressing Goal: Remains free of injury related to seizures activity Description: INTERVENTIONS: Outcome: Progressing Goal: Achieves maximal functionality and self care Description: INTERVENTIONS: Outcome: Progressing Problem: Respiratory - Adult Goal: Achieves optimal ventilation and oxygenation Description: INTERVENTIONS: Outcome: Progressing Problem: Cardiovascular - Adult Goal: Maintains optimal cardiac output and hemodynamic stability Description: INTERVENTIONS: Outcome: Progressing Goal: Absence of cardiac dysrhythmias or at baseline Description: INTERVENTIONS: Outcome: Progressing Problem: Skin/Tissue Integrity - Adult Goal: Skin integrity remains intact Description: INTERVENTIONS: Outcome: Progressing Goal: Incisions, wounds, or drain sites healing without S/S of infection Description: INFECTIONS: Outcome: Progressing Goal: Oral mucous membranes remain intact Description: INTERVENTIONS: Outcome: Progressing Problem: Neurovascular Musculoskeletal - Adult Goal: Return mobility to safest level of function Description: INTERVENTIONS: Outcome: Progressing Goal: Maintain proper alignment of affected body part Description: INTERVENTIONS: Outcome: Progressing Goal: Return ADL status to a safe level of function Description: INTERVENTIONS: Outcome: Progressing Goal: Absence or reduction of edema Description: INTERVENTIONS Outcome: Progressing Goal: Maintains or improves tissue perfusion Description: INTERVENTIONS Outcome: Progressing Problem: Genitourinary - Adult Goal: Maintains or returns to baseline genitourinary function Description: INTERVENTIONS: Outcome: Progressing Goal: Urinary catheter remains patent Description: INTERVENTIONS: Outcome: Progressing Problem: Infection - Adult Goal: Infections are decreased or avoided Description: INTERVENTIONS: Outcome: Progressing Problem: Metabolic/Fluid and Electrolytes - Adult Goal: Electrolytes maintained within normal limits Description: INTERVENTIONS: Outcome: Progressing Goal: Hemodynamic stability and optimal renal function maintained Description: INTERVENTIONS: Outcome: Progressing Goal: Glucose maintained within prescribed range Description: INTERVENTIONS: Outcome: Progressing Problem: Hematologic - Adult Goal: Maintains hematologic stability Description: INTERVENTIONS: Outcome: Progressing Problem: Pain/Discomfort Goal: Patient exhibits reduced pain/discomfort as evidenced by pain scores Outcome: Progressing Goal: Patient uses pharmacological and non-pharmacological pain management strategies. Outcome: Progressing Goal: Patient verbalizes acceptable level of pain relief and ability to engage in desired activity. Outcome: Progressing Problem: Restraint Safety Goal: Free from restraint(s) Description: INTERVENTIONS: Outcome: Progressing Goal: Remains free of injury from restraints Description: INTERVENTIONS: Outcome: Progressing Problem: Fall Risk Goal: Fall risk and fall related injury risk are minimized (interventions related to the fall risk can be found in the flowsheet documentation) Outcome: Progressing Problem: Gastrointestinal - Adult Goal: Minimal or absence of nausea and vomiting Description: INTERVENTIONS: Outcome: Progressing Goal: Maintains or returns to baseline bowel function Description: INTERVENTIONS: Outcome: Progressing Goal: Maintains adequate nutritional intake Description: INTERVENTIONS: Outcome: Progressing Problem: Anxiety Goal: Will report anxiety at manageable levels Description: INTERVENTIONS Outcome: Progressing Problem: Coping Goal: Patient/Healthcare Agent able to verbalize concerns and demonstrate effective coping strategies Description: INTERVENTIONS Outcome: Progressing Problem: Decision Making Goal: Patient/Healthcare Agent able to effectively weigh alternatives and participate in decision making related to treatment and care. Description: INTERVENTIONS Outcome: Progressing Problem: Behavior Goal: Pt/Family maintain appropriate behavior and adhere to behavioral management agreement, if implemented Description: INTERVENTIONS Outcome: Progressing Problem: Depression/Self Harm Goal: Effect of psychiatric condition will be minimized and patient will be protected from self harm Description: INTERVENTIONS Outcome: Progressing Problem: Substance Abuse/Detox Goal: Will have no detox symptoms and will verbalize plan for changing drug- related behavior Description: INTERVENTIONS Outcome: Progressing Problem: Oral Intake: Inadequate oral intake Goal: Total intake will meet estimated nutrient needs Outcome: Progressing Problem: Balance Goal: LTG - Patient will maintain standing and sitting balance to allow for completion of daily activities Outcome: Progressing Goal: LTG - Patient will demonstrate Intervention to enhance balance for safe completion of daily activities Outcome: Progressing * Felicity Garcia RN - 05/29/2025 4:14 PM CDT Care Coordination Progress Note Expected Discharge Date: 05/31/2025 Discharge Plan: SNF Pt is new to this [facility] case load, Discussed in MDR. EF 20% 9 lb wt gain. No decisional. IDAOX1-2. Ptis medically ready for a lower level of care however she has no accepting facility. The recs are for SNF. SW to discuss options with the decision maker for this pt. [facility] did speak with Pauly @ [facility] pre DC planning and provided updates [phone] ext [phone]. Family Support (Name and Phone): Extended Emergency Contact Information Primary Emergency Contact: Mounika Rice Address: [address] [place] Relation: Sister Secondary Emergency Contact: Laura Mcginnis ([place]) Mobile Relation: Sister Transportation at Discharge: Family: READMISSION RISK SCORE is 17 at 4:14 PM 05/29/2025.: Name: Felicity Garcia RN [id number] * Richar Curry SLP - 05/29/2025 10:50 AM CDT [facility] Physical Medicine and Rehabilitation Swallow Treatment Patient: Loretta Penn Med Record Number: [id number] Date of : 1960 Age: [age] year old PPE: PPE worn by staff: gloves;mask - procedural PPE worn by patient: gown - patient, clean;socks - clean Impressions: Patient's swallow function assessed at bedside. Patient completed trial of thin liquids, puree and ground consistencies with no overt s/s of aspiration. ST recommends upgrading to Soft & Bite Sized (6)/Advanced Soft (DYS3) and thin liquids and medication as tolerated. ST will continue to follow patient to assess diet tolerance and upgrade diet as able. Recommendations: Diet Liquids Recommendation: Thin/ Thin (0) Diet Solids Recommendation: Soft & Bite Sized (6)/Advanced Soft Dys 3 Recommended Form of Meds: As Tolerated Compensatory Swallowing Strategies: 90 Degrees elevation for all oral intake;Small bites/sips;Eat/Feed slowly Recommended Tests/Consults: Recommendations: Dysphagia Treatment Discharge Recommendations: Patient will benefit from multidisciplinary inpatient therapies. Speech therapy is recommended to improve swallow function. SUBJECTIVE: Patient Goals:thank you Pain Assessment: 0/10 OBJECTIVE: Level of Consciousness: alert Orientation Level: oriented to person Positioning: Upright in bed Respiratory Status: Room Air Swallow Trials: Ice chips: Presentation: Spoon-Assisted Oral: Within Functional Limits Pharyngeal: Within Functional LImits Thin Liquid: Presentation: Straw-Assisted Oral: Increased Anterior to Posterior Transit Pharyngeal: Delayed Swallow Puree: Presentation: Spoon-Assisted Oral: Within Functional Limits Pharyngeal: Within Functional LImits Solid: Presentation: Assisted Oral: Impaired Mastication;Increased Anterior to Posterior Transit;Delayed Initiation Pharyngeal: Delayed Swallow Assessment: Risk For Aspiration: Mild Primary Diagnostic Impression - Oral: No dysphagia Primary Diagnostic Impression - Pharyngeal: Mild;Dysphagia Treatment/Education/Interventions: While performing THEATRE PROGRAM DIRECTOR, Patient was instructed in: diet/liquid recommendations. Patient demonstrated Fair understanding of instructions given. Nurse contacted regarding results of treatment session. INFORMED CONSENT TO TREATMENT: Plan of care including recommended therapy, goals and frequency, discussed with patient who understands and agrees to proceed. Short Term Goals Patient will tolerate recommended food and liquid consistencies without clinical signs of aspiration. Clerk Cashier Goal (s): Patient to be independent/baseline with functional mobility and self care and be able to safely discharge to prior level of care. Richar Ayala M.A., [facility]THEATRE PROGRAM DIRECTOR Speech Language Pathologist [phone] * Debi Joseph MD - 05/29/2025 7:46 AM CDT Images from the original note were not included. [facility] Internal Medicine Progress Note Name: Loretta Penn Room/Bed: [facility] : 1960 64 year old PCP: KYA Salinas Admit Date/Time: 05/15/2025 6:17 PM LOS: 14 Subjective Interval update: Pending placement. Afebrile. And Hemodynamically stable. CBC and CMP unremarkable-stable. 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 Pt was initially admitted to medicine service and cardiology consulted regarding severity of heart failure and other valvular issues. On admission, labs significant for BNP 2209, trop 24-->23, Na 122, K 6.1, Cr 1.48,alk phos 365, bili 7.7. Pt was shifted with insulin + dextrose, given patiromer and. She was started on IV furosemide TID for acute HFrEF. EKG showing Qtc prolongation. Pt noted to be hypoglycemic in40s on 8/7 AM, hypoglycemia protocol initiated. Patient transferred to primary cardiology service on 05/16 d/t concern that patient may develop cardiogenic shock. On 05/17, decision was made to proceed with light sedation in order to be able to provide meds to pt given that she was not taking any orals d/t sedation; additionally Na in 121-122 range and pt would need more frequent lab draws for mgmt. On transfer to ICU, pt increasing agitated and given IV ativan. Then noted to be obtunded, intubated for airway protection. She was given hypertonic saline 2x, and was also briefly on levophed for BP support. ICU team c/s for mech vent management. Started on nitroprusside drip, but then discontinued d/t no proper BP measurements. Palliative consulted regarding family's understanding of medical conditions and difficult decision making. A line and central line placed. Sedation was discontinued on 05/19 AM, pt responding to name but not following commands. Noted to have afib with RVR overnight, proceeded with CHANCE DCCV. On CHANCE on 05/20, pt noted to have LA thrombus, DCCV was aborted. Lactic increasing on 05/20, given 250cc bolus for c/f hypovolemic shock. Patient unable to extubate d/t inability to follow commands despite weaning sedation between 05/21-05/22. Extubated on 05/24. Passed swallow study on 05/27, NG removed and patient transferred to floor. Objective Temp: [97.4 ??F (36.3 ??C)-98.4 ??F (36.9 ??C)] 98 ??F (36.7 ??C) Pulse: [62-78] 62 Resp: [18-20] 18 BP: (90-100)/(50-77) 90/58 Weight change: -0.181 kg (-6.4 oz) Intake/Output Summary (Last 24 hours) at 05/29/2025 0746 Last data filed at 05/29/2025 0639 Gross per 24 hour Intake 350 ml Output 400 ml Net -50 ml Physical Exam: General: Intubated and sedated, no acute distress Head: normocephalic, atraumatic Eyes: conjunctivae clear, extraocular muscles intact Mouth/Throat: ETT in place CV: regular rate and rhythm, no murmurs appreciated Resp: upper airway sounds, thick secretions. no wheezes or crackles heard Abd: soft, nontender, nondistended, normoactive bowel sounds Extremities: no lower extremity edema, no cyanosis Skin: BLE pitting edema 2+ Neuro: moving all extremities well, no focal deficits Scheduled Medications: Medications[1] PRN Medications: Medications[2] Continuous Infusions: Medications[3] Laboratory Data Recent Labs Component Name 05/29/25 0331 05/28/25 0633 05/27/25 0417 WBC 4.4 4.8 5.8 HGB 12.5 13.1 12.9 HCT 38.7 40.7 40.7 PLTCOUNT 314 322 273 MCV 102.1* 104.4* 105.7* Recent Labs Component Name 05/15/25 1454 PT 29.5* INR 2.9 Recent Labs Component Name 05/29/25 0331 05/28/25 1021 05/28/25 0634 NA 141 141 142 POTASSIUM 3.8 3.9 4.1 CL 103 102 102 CO2 30* 33* 34* BUN 29* 31* 35* CREATININE 0.85 0.81 0.83 Recent Labs Component Name 05/29/25 0331 05/28/25 1021 05/28/25 0634 05/27/25 1058 CALCIUM 9.4 9.6 9.8 10.0 PHOS 4.7 - 4.6 3.9 Recent Labs Component Name 05/29/25 0331 05/28/25 1021 05/28/25 0634 05/22/25 0415 05/21/25 1905 05/18/25 0933 05/18/25 0305 05/15/25 2257 05/15/25 2020 PROT 5.8* 6.5 - - 5.7* - - - - ALB 2.0* 2.3* 2.2* - 2.0* - 2.6* - - ALKPHOS 203* 244* - - 230* - - - - AST 49* 58* - - 43* - - - - ALT 27 31 - - 19 - - - - TBILI 3.7* 4.5* - - 8.6* - - - 7.0* DBILI - - - - - - 4.4* - 4.9* - = values in this interval not displayed. No results for input(s): CKTOTAL, CKMBCK2, TROPONINI in the last 26599 hours. No results for input(s): VANCORNDM, VANCTROUGH in the last 28358 hours. Microbiology Results (Displays last 21 days for this encounter ONLY) Procedure Component Value - Date/Time SARS-COV-2 (COVID-19) RAPID [[id number]] (Normal) Collected: 05/27/25 1439 Lab Status: Final result Specimen: Microbiology from Nasopharyngeal Updated: 05/27/25 1518 COVID-19 PCR Not detected Narrative: The [employer] Xpert Xpress SARS-COV-2 has been authorized by the Food and Drug Administration (FDA) under an Emergency Use Authorization (EUA). This test has been validated in accordance with the FDA'sguidance document Policy for Diagnostic Testing in Laboratories Certified to perform High Complexity Testing under CLIA prior to Emergency Use Authorization for Coronavirus Disease-2019 during the Public Health Emergency issued on December 08, 2019. FDA independent review of this validation is pending. This test is only authorized for the duration of the time the declaration that circumstances exist justifying the authorization of emergency use of in vitro diagnostic tests for detection of SARS-COV-2 virus and/or diagnosis of COVID-19 infection under 564(b) (1) of the Act. 21 U.S.C. 360bbb-3 (b) (1), unless the authorization is terminated or revoked sooner. Fact Sheets for this EUA assay are available upon request. CULTURE SPUTUM+GRAM STAIN [[id number]] Collected: 05/19/25 1620 Lab Status: Final result Specimen: Microbiology from Sputum Updated: 05/21/25 0808 Culture Light normal oropharyngeal alisa Gram Stain Moderate Gram-negative bacilli Moderate Gram-positive cocci Light Yeast >= 25 per low power field Polymorphonuclear cells <10 per low power field Squamous epithelial cells CULTURE BLOOD [[id number]] (Normal) Collected: 05/17/25 1440 Lab Status: Final result Specimen: Blood Peripheral Updated: 05/22/25 1931 Culture No growth day 5 MRSA PCR [[id number]] (Normal) Collected: 05/17/25 1440 Lab Status: Final result Specimen: Microbiology from Nasal Updated: 05/17/25 2106 MRSA DNA by PCR Not detected Narrative: Methicillin-resistant Staphylococcus aureus (MRSA) DNA is not detected (presumed not colonized withMRSA). CULTURE BLOOD [[id number]] (Normal) Collected: 05/17/25 1436 Lab Status: Final result Specimen: Blood Peripheral Updated: 05/22/251930 Culture No growth day 5 Imaging No results found. Relevant labs and imaging data reviewed on [facility]. Assessment and Plan Hyperkalemia (POA: Yes) Hyperbilirubinemia (POA: Yes) Hyponatremia (POA: Yes) Transaminitis (POA: Yes) Elevated alkaline phosphatase level (POA: Yes) Acute on chronic congestive heart failure, unspecified heart failure type (HCC) (POA: Yes) Obesity with serious comorbidity, unspecified class, unspecified obesity type (POA: Yes) Demand ischemia (HCC) (POA: Yes) History of endocarditis (POA: Yes) TBI (traumatic brain injury) (HCC) (POA: Yes) Hypothyroidism (POA: Yes) Atrial fibrillation (HCC) (POA: Yes) Prolonged Q-T interval on ECG (POA: Yes) Pericardial effusion (HCC) (POA: Yes) Acute kidney injury (POA: Yes) Type 2 diabetes mellitus, without long-term current use of insulin (HCC) (POA: Yes) Shortness of breath (POA: Unknown) Other shock (HCC) (POA: Unknown) Loretta Penn is a 64 year-old female with past medical history significant for HFrEF (EF 25% 02/2025), severe TR, 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 Now cardiogenic shock and hyponatremia resolved, and patient passed swallow eval after extubation. Medically stable for discharge. Assessment & Plan Hyperkalemia Hyponatremia - Pt hyperkalemic on arrival, shifted with insulin + dextrose and started on lokelma - Noted to be HypoNa, though baseline may be close to 130-132 - Likely hypervolemic hyponatremia iso cardiogenic shock and ADHF PLAN: - Replete lytes as needed Obesity with serious comorbidity, unspecified class, unspecified obesity type Type 2 diabetes mellitus, without long-term current use of insulin (HCC) - per notes from 04/19, home regimen is 17U lantus in AM, 12U TID AC + slide 0-10U - Noted to have hypoglycemic episode on M - BG has been ranging 220-300s on 05/20 PLAN: - Cont SSI 0-18U, accuchecks with meals - Cont lantus 5U qhs Agitation - Pt noted to be obtunded at 4AM on 05/17, was given ativan earlier In the night for agitation - EEG with generalized slowing - sedation weaned off on M - CT head 05/20 - no acute abnormalities - At baseline, pt responds to her name and is able to express what she wants/doesn't want per sister. Has very limited understanding of her medical conditions iso TBI; sisters administer her meds, and otherwise patient reportedly does ADLs. non compliant with cardiac diet at home, and has numerous admissions for HF exacerbations in past PLAN: - AVOID BENZOS - Palliative consulted for decision making and complex family situation, following peripherally Demand ischemia (HCC) Acute on chronic congestive heart failure, unspecified heart failure type (HCC) History of endocarditis - TTE with EF of 25% on 05/27/25. - Furosemide IV TID given on day of admission - metop and aldactone held on admission as pt not taking oral meds - Manas removed - Levo discontinued - diuresed with bumex 4mg TID earlier in ICU amdission - Pt on cefadroxil 100mg BID for chronic ppx - TTE does not show any vegetations, though noted to have L atrial mass on CCTA 07/2024 - Became hypothermic on 05/17 - Infectious w/u negative so far (CXR, UA, Bcx) - 5d course cefepime finished on 05/22 PLAN: - Bumex 0.5mg BID; continue on discharge - Empagliflozin 10mg, metop succ 100mg qd, entresto 12, aldactone 12.5 -regarding severe TR: not to have inpt intervention but will need outpt f/u. Pt was supposed to follow with [facility], advise to keep that appointment but will refer to [facility] cardiology in case - Resumed home cefadroxil; cont on cefadroxil 500mg BID on discharge Atrial fibrillation (HCC) Prolonged Q-T interval on ECG - Cont home xarelto, had not previously been getting due to agitation - RVR resolved after digoxin load - Unable to do DCCV d/t LA thrombus PLAN: - Cont xarelto - metop succ 100mg qdaily - Will need repeat CHANCE in 3 months on discharge to reassess thrombus Hypothyroidism - Cont home levothyroxine Acute kidney injury - BUN increasing, will ctm RFP. Likely iso hypovolemia from diuresis. Diuretic holiday 05/26 Shortness of breath Pericardial effusion (HCC) Pt had to be mechanically intubated on 88 AM for c/f airway protection PLAN: - Extubated 05/24, passed swallow eval - Pulmonary toilet Diet: DIET MODIFIED CONSISTENCY DIETARY NUTRITION SUPPLEMENTS DVT Prophylaxis: Apixaban Code Status: Full Code Ready to medically d/c home. Pending snf placement. Electronically Signed By: Debi Joseph MD 05/29/2025 7:46 AM [1] 0.9% NaCl 3 mL Intracatheter q8h apixaban 5 mg Oral BID bumetanide 0.5 mg Oral BID busPIRone 10 mg Oral BID cefadroxil 500 mg Oral BID cyanocobalamin 500 mcg Oral QDAY empagliflozin 10 mg Oral QDAY escitalopram 10 mg Oral QDAY guaiFENesin ER 12hr 600 mg Oral q12h insulin aspart 0-18 Units Subcutaneous TID WC insulin glargine 5 Units Subcutaneous AT BEDTIME levothyroxine 75 mcg Oral QAM metoprolol succinate XL 24hr 100 mg Oral QDAY polyethylene glycol 3350 17 g Oral QDAY sacubitril-valsartan 0.5 tablet Oral BID senna 17.2 mg Oral QDAY spironolactone 12.5 mg Oral QDAY vitamin D3 5,000 Units Oral QDAY [2] SALINE LOCK, INSERT AND MAINTAIN AND 0.9% NaCl AND 0.9% NaCl acetaminophen albuterol HFA dextrose IV for hypoglycemia OR dextrose IV for hypoglycemia OR glucagon glucose (Diabetic Use) gel [3] * Waqas Higginbotham MD - 05/28/2025 9:29 PM CDT Plan Of Care Subj: Transferred to [facility] Seen in room Hospital course, plan, labs reviewed Spoke to nursing staff Questions answered. Waqas Higginbotham MD * Brittanie Redding RN - 05/28/2025 10:48 AM CDT Care Coordination Progress Note Expected Discharge Date: 05/28/2025 Discharge Plan: Pt had EKG (05/28). bog worker saw pt at bedside on 05/27. Palliative met withpt and family on 05/27. PT recommendation: SNF (05/27) OT recommendation: SNF (05/27) THEATRE PROGRAM DIRECTOR recommendation: thin liquids, minced and moist diet (05/26; unable to see pt d/t EKG on 05/28) Pt's condition does not warrant admission to LTAC. SW will manage referrals, transfer, and transportation if pt goes to SNF. Continued Care and Services - Admitted Since 05/15/2025 Destination Service Provider Request Status Services Address Phone Fax Patient Preferred [facility] Pending - Request Sent -- [address] [facility] [address] -- [facility] Declined Patient does not meet the level of care required for admission -- [id number] [facility] [id number] -- Home Medical Care Service Provider Request Status Services Address Phone Fax Patient Preferred [facility] Pending - Request Sent -- [address] [facility] [phone] -- Family Support (Name and Phone): Extended Emergency Contact Information Primary Emergency Contact: Mounika Rice Address: [address] [place] [address] [place] Mobile Relation: Sister Secondary Emergency Contact: Laura Mcginnis (PERLITAA) Mobile Relation: Sister Transportation at Discharge: Family:, possibly EMS if pt goes to SNF READMISSION RISK SCORE is 16 at 10:49 AM 05/28/2025.: [email or web address] MA-Certification, A.D.N, BSN [phone] * Shavon Caldwell MD - 05/28/2025 9:55 AM CDT CARDIOLOGY SERVICE CCU PROGRESS NOTE Admission Date: 05/15/2025 Patient: Loretta Penn (64 year old female) Code Status: Full Code Interval History: Weaned off oxygen yesterday Echo this AM Stable for discharge as of yesterday, pending placement. 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 Pt was initially admitted to medicine service and cardiology consulted regarding severity of heart failure and other valvular issues. On admission, labs significant for BNP 2209, trop 24-->23, Na 122, K 6.1, Cr 1.48,alk phos 365, bili 7.7. Pt was shifted with insulin + dextrose, given patiromer and. She was started on IV furosemide TID for acute HFrEF. EKG showing Qtc prolongation. Pt noted to be hypoglycemic in40s on 05/16 AM, hypoglycemia protocol initiated. Patient transferred to primary cardiology service on 05/16 d/t concern that patient may develop cardiogenic shock. On 05/17, decision was made to proceed with light sedation in order to be able to provide meds to pt given that she was not taking any orals d/t sedation; additionally Na in 121-122 range and pt would need more frequent lab draws for mgmt. On transfer to ICU, pt increasing agitated and given IV ativan. Then noted to be obtunded, intubated for airway protection. She was given hypertonic saline 2x, and was also briefly on levophed for BP support. ICU team [facility]. Started on nitroprusside drip, but then discontinued d/t no proper BP measurements. Palliative consulted regarding family's understanding of medical conditions and difficult decision making. A line and central line placed. Sedation was discontinued on 8/10 AM, pt responding to name but not following commands. Noted to have afib with RVR overnight, proceeded with CHANCE DCCV. On CHANCE on 05/20, pt noted to have LA thrombus, DCCV was aborted. Lactic increasing on 05/20, given 250cc bolus for c/f hypovolemic shock. Patient unable to extubate d/t inability to follow commands despite weaning sedation between 05/21-05/22. Extubated on 05/24. Passed swallow study on 05/27, NG removed and patient transferred to floor. Medical Hx: Per chart review, patient follows with [facility] primarily. Of note, patient recently admitted at [facility] forHF exacerbation in 02/2025; per chart review, patient was previously admitted previously at [facility] for MAYS and othorpnea + fluid retention for 2-3 weeks and then transferred to [facility]. [facility] radar systems engineer Dr. Flores increased her lasix from 40qd to BID, added spironolactone but had no improvement. BNPelevated to 2800s, at that time, started on IV bumex. EKG showing afib. Pt received diuresis at [facility] then GDMT was optimized to Entresto 24-26 (0.5 tab) BID, metoprolol XR 100 mg daily, spironolactone 25 mg daily, and Jardiance 10 mg daily. Valve team was consulted during this hospitalization, recommending clinic follow-up without transcatheter tricuspid valve interventions since patient is a poor candidate due to chronic tricuspid valve endocarditis and severe non-ischemic cardiomyopathy with LVEF 25%. Current Medications: Scheduled: Medications[1] Continuous: Medications[2] PRN: Medications[3] Vital Signs: Temp: [97.4 ??F (36.3 ??C)-98.8 ??F (37.1 ??C)] 97.4 ??F (36.3 ??C) Pulse: [78-99] 81 Resp: [20-27] 22 BP: (94-130)/(49-67) 108/59 Physical Exam: General: Intubated and sedated, no acute distress Head: normocephalic, atraumatic Eyes: conjunctivae clear, extraocular muscles intact Mouth/Throat: ETT in place CV: regular rate and rhythm, no murmurs appreciated Resp: upper airway sounds, thick secretions. no wheezes or crackles heard Abd: soft, nontender, nondistended, normoactive bowel sounds Extremities: no lower extremity edema, no cyanosis Skin: BLE pitting edema 2+ Neuro: moving all extremities well, no focal deficits Lab Results: Labs have been personally reviewed and are remarkable for the following: CBC: Recent Labs Component Name 05/28/25 0633 05/27/25 0417 05/26/25 0444 WBC 4.8 5.8 6.8 HGB 13.1 12.9 12.7 HCT 40.7 40.7 40.3 MCV 104.4* 105.7* 105.5* Coagulation Panel: Recent Labs Component Name 05/15/25 1454 PT 29.5* INR 2.9 BMP: Recent Labs Component Name 05/28/25 0634 05/27/25 1058 05/27/25 0417 NA 142 143 142 POTASSIUM 4.1 4.3 4.9* CL 102 105 102 CO2 34* 31* 35* BUN 35* 38* 38* CREATININE 0.83 0.82 0.70 CALCIUM 9.8 10.0 10.2 Recent Labs Component Name 05/28/25 0634 05/27/25 0417 05/26/25 0444 MAGNESIUM 2.1 2.0 2.2 Recent Labs Component Name 05/28/25 0634 05/27/25 1058 05/27/25 0417 PHOS 4.6 3.9 4.0 Hepatic Panel: Recent Labs Component Name 05/28/25 0634 05/27/25 1058 05/27/25 0417 05/22/25 0415 05/21/25 1905 05/21/25 1601 05/21/25 0329 05/20/25 1646 05/20/25 0845 05/18/25 0933 05/18/25 0305 05/15/25 2257 05/15/252019 AST - - - - 43* - 37* - 37* - - - - ALT - - - - - - - - ALKPHOS - - - - 230* - 254* - 259* - - - - TBILI - - - - 8.6* - 9.9* - 9.4* - - - 7.0* DBILI - - - - - - - - - - 4.4* - 4.9* IBILI - - - - - - - - - - - - 2.1 ALB 2.2* 2.2* 2.1* - 2.0* - 2.2* - 2.2* 2.2* - 2.6* - - - = values in this interval not displayed. ABG: Recent Labs Component Name 05/22/25 0554 05/22/25 0415 05/21/25 1905 PH 7.45 7.47* 7.45 7.52* PCO2 46* 44 49* PO2 85 68* 87 Amylase/Lipase: Invalid input(s): AMYL, LIPA Thyroid Studies: No results for input(s): TSH, T4 in the last 19226 hours. Cardiac Enzymes: No results for input(s): CKTOTAL, CKMB, TROPONINI in the last 89065 hours. Invalid input(s): CKMBINDEX Lipid Panel: No results for input(s): LDLCALC, HDL in the last 30854 hours. Microbiology: Microbiology Results (Displays last 21 days for this encounter ONLY) Procedure Component Value - Date/Time SARS-COV-2 (COVID-19) RAPID [[id number]] (Normal) Collected: 05/27/25 1439 Lab Status: Final result Specimen: Microbiology from Nasopharyngeal Updated: 05/27/25 1518 COVID-19 PCR Not detected Narrative: The [employer] Xpert Xpress SARS-COV-2 has been authorized by the Food and Drug Administration (FDA) under an Emergency Use Authorization (EUA). This test has been validated in accordance with the FDA'sguidance document Policy for Diagnostic Testing in Laboratories Certified to perform High Complexity Testing under CLIA prior to Emergency Use Authorization for Coronavirus Disease-2019 during the Public Health Emergency issued on December 08, 2019. FDA independent review of this validation is pending. This test is only authorized for the duration of the time the declaration that circumstances exist justifying the authorization of emergency use of in vitro diagnostic tests for detection of SARS-COV-2 virus and/or diagnosis of COVID-19 infection under 564(b) (1) of the Act. 21 U.S.C. 360bbb-3 (b) (1), unless the authorization is terminated or revoked sooner. Fact Sheets for this EUA assay are available upon request. CULTURE SPUTUM+GRAM STAIN [[id number]] Collected: 05/19/25 1620 Lab Status: Final result Specimen: Microbiology from Sputum Updated: 05/21/25 0808 Culture Light normal oropharyngeal alisa Gram Stain Moderate Gram-negative bacilli Moderate Gram-positive cocci Light Yeast >= 25 per low power field Polymorphonuclear cells <10 per low power field Squamous epithelial cells CULTURE BLOOD [[id number]] (Normal) Collected: 05/17/25 1440 Lab Status: Final result Specimen: Blood Peripheral Updated: 05/22/25 193 Culture No growth day 5 MRSA PCR [[id number]] (Normal) Collected: 05/17/25 1440 Lab Status: Final result Specimen: Microbiology from Nasal Updated: 05/17/25 2106 MRSA DNA by PCR Not detected Narrative: Methicillin-resistant Staphylococcus aureus (MRSA) DNA is not detected (presumed not colonized withMRSA). CULTURE BLOOD [[id number]] (Normal) Collected: 05/17/25 1436 Lab Status: Final result Specimen: Blood Peripheral Updated: 05/22/25 193 Culture No growth day 5 Imaging: CT Head Wo Contrast Result Date: 05/17/2025 IMPRESSION: 1.No acute intracranial hemorrhage, midline shift, or mass effect. 2.Left side the sinusitis. The left nasogastric tube is in place. > Dictated by Claire Ortiz MD, (development vice president). > Dictated by Instrument Technologist I, Tripp Pablo MD have personally reviewed and interpretedthis examination/study. > Interpreting Provider: Tripp Pablo MD on 05/17/2025 9:24 AM XR Abdomen Kub Portable Result Date: 05/17/2025 IMPRESSION: Enteric tube terminates in the gastric body. > Interpreting Provider: Felipe Munoz MD on 05/17/2025 9:[address] Chest Pe W Abd Pelvis W Cont Result Date: 05/15/2025 Impression: 1.No evidence of acute pulmonary embolism. There is a retained metallic wire within oneof the right inferior lobe pulmonary arteries, likely iatrogenic. 2.Cardiomegaly and a moderate-sized pericardial effusion. Reflux of contrast into the hepatic veins suggesting right heart dysfunction. 3.Interstitial pulmonary edema, small volume ascites and diffuse body wall edema suggesting hypervolemia. Preliminary findings were discussed with the patient's care provider, Dr Sil Cordero by Dr. Tom Dinh via telephone at 05/15/2025 8:24 PM with readback comprehension and verification. > Dictated by Tom Dinh DO, (development vice president). > Dictated by Instrument Technologist I, Ann-Marie Campa MD have personally reviewed and interpreted this examination/study. > Interpreting Provider: Ann-Marie Campa MD on 05/15/2025 10:20 PM XR CHEST 2VW Result Date: 05/15/2025 IMPRESSION: A linear wire-like density projects over the right perihilar region. Cardiomegaly. Likely enlarged pulmonary arteries. Mild interstitial edema. Trace pleural effusions. No pneumothorax. 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 Now cardiogenic shock and hyponatremia resolved, and patient passed swallow eval after extubation. Medically stable for discharge. #Acute decompensated HF with reduced EF 25% #Peripheral edema in BLE, resolved - TTE done yesterday - Furosemide IV TID given on day of admission - metop and aldactone held on admission as pt not taking oral meds - Manas removed - Levo discontinued - diuresed with bumex 4mg TID earlier in ICU amdission PLAN: - Bumex 0.5mg BID; pls continue this med on discharge - Empagliflozin 10mg, metop succ 100mg qd, entresto 12-13, aldactone 12.5 #Persistent atrial fibrillation #Left atrial thrombus - Cont home xarelto, had not previously been getting due to agitation - RVR resolved after digoxin load - Unable to do DCCV d/t LA thrombus PLAN: - Cont xarelto - metop succ 100mg qdaily - Will need repeat CHANCE in 3 months on discharge to reassess thrombus #Severe TR - Pt prev seen by [facility] valve team who recommended outpt f/u for possible transcatheter TR eval PLAN: - Will discuss with structural; not to have inpt intervention but will need outpt f/u. Pt was supposed to follow with [facility], advise to keep that appointment but will refer to [facility] cardiology in case #Congestive hepatopathy, improving #Elevated alk phos, improving - 2/2 congestive hepatopathy iso HF exacerbation - CTM CMP daily #Uremia, improving - BUN increasing, will ctm RFP. Likely iso hypovolemia from diuresis. Diuretic holiday 05/26 #Constipation - miralax qd, senna qd - had many large Bms after enema #IDDM #Obesity - per notes from 04/19, home regimen is 17U lantus in AM, 12U TID AC + slide 0-10U - Noted to have hypoglycemic episode on M - BG has been ranging 220-300s on 05/20 PLAN: - Cont SSI 0-18U, accuchecks with meals - Cont lantus 5U qhs #Hypothyroidism - Cont home levothyroxine #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 - Pt on cefadroxil 100mg BID for chronic ppx - TTE does not show any vegetations, though noted to have L atrial mass on CCTA 07/2024 - Became hypothermic on 05/17 - Infectious w/u negative so far (CXR, UA, Bcx) - 5d course cefepime finished on 05/22 PLAN: - Resumed home cefadroxil; cont on cefadroxil 500mg BID on discharge #Acute hypoxemic respiratory failure, resolved - Pt had to be mechanically intubated on 8 AM for c/f airway protection PLAN: - Extubated 05/24, passed swallow eval - Pulmonary toilet #Hypokalemia, resolved #Hypervolemic hyponatremia, resolved - Pt hyperkalemic on arrival, shifted with insulin + dextrose and started on lokelma - Noted to be HypoNa, though baseline may be close to 130-132 - Likely hypervolemic hyponatremia iso cardiogenic shock and ADHF PLAN: - Replete lytes as needed #Acute encephalopathy, resolved #Agitation, resolved - Pt noted to be obtunded at 4AM on 05/17, was given ativan earlier In the night for agitation - EEG with generalized slowing - sedation weaned off on M - CT head 05/20 - no acute abnormalities - At baseline, pt responds to her name and is able to express what she wants/doesn't want per sister. Has very limited understanding of her medical conditions iso TBI; sisters administer her meds, and otherwise patient reportedly does ADLs. non compliant with cardiac diet at home, and has numerous admissions for HF exacerbations in past PLAN: - AVOID BENZOS - Palliative consulted for decision making and complex family situation, following peripherally Code Status: Full Code Lines: Peripheral IV Left Antecubital (Active) Placement Date/Time: 05/15/25 1451 Size (Gauge): 20 G Orientation: Left Location: Antecubital Number of days: 1 Peripheral IV Anterior;Right (Active) Placement Date/Time: 05/16/25 2200 Size (Gauge): 20 G Orientation: Anterior;Right Number of days: 0 Peripheral IV Right Antecubital (Active) Placement Date/Time: 05/16/25 2300 Size (Gauge): 20 G Orientation: Right Location: Antecubital Number of days: 0 Enteral - Nasal/Oral Naso-gastric Nostril/Nare;Left (Active) Placement Date/Time: 05/17/25 0700 Type: Naso-gastric Tube Location: Nostril/Nare;Left Internal Length (cm): 60 Number of days: 0 ETT Endotracheal Tube Cuffed-inflated 7.5 MM (Active) Placement Date/Time: 05/17/25 0327 Person who placed: Michael JIMENES Mask Ventilation: easy mask Induction: Rapid Sequence Device: Endotracheal Tube Location: Oral Tube Type: Cuffed-inflated Tube size (MM): 7.5 MM Depth of insertion: 24 CM Measur... Number of days: 0 Arterial Line (Active) Placement Date/Time: 05/17/25 1100 Placed by: Wendi Scruggs Orientation: Right Site: radial Site Prep: Chlorhexidine Local Anesthetic Used?: No Securement Method: Sutured Procedure Tolerance: Well Number of days: 0 Midline 05/17/25 0154 Right Brachial Vein (Active) Placement Date/Time: 05/17/25 015 IV Catheter Size: (c) Other (Comments) Orientation: Right Location: Brachial Vein Site Prep: Chlorhexidine Placement Verification: Ultrasound Number of days: 0 Urethral Catheter (Active) Placement Date/Time: 05/17/25 0249 Catheter Type : Double lumen/two-way;Non-latex Catheter Balloon Inflated With: 10 mL Number of days: 0 Prophylaxis: Aspiration precautions w/ HOB elevation by 30 degrees GI prophyalxis w/ pantoprazole VTE prophyalxis w/ SCDs, xarelto Diet: DIET MODIFIED CONSISTENCY Activity: Activity as tolerated Disposition: ICU Monitoring The above assessment and plan will be discussed with the attending. This note is not final until attested by attending physician. Shavon Caldwell MD 05/28/2025 9:55 AM 05/17/2025 9:55 AM [facility] Transfer Checklist: Reasons for Transfer to [facility] Medically stable for discharge, waiting for SNF placement with CM. Will need to discuss SNF with sister Mounika. 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 Was intubated d/t AMS.Was in afib with RVR, not amenable to DCCV d/t LA thrombus, will need repeat CHANCE in 3 months. Switched from Xarelto to Eliquis for c/f DOAC failure; pt does not like lab draws and not amenable to warfarin. Now cardiogenic shock and hyponatremia resolved, and patient passed swallow eval after extubation. Pending placement at SNF per PT/OT recs. Floor transfer initiated 2 days ago, medicine meds available. Medically stable for discharge today, pending placement. Home Meds Being Held: Discontinue the following home xarelto (failure d/t LA thrombus present) Home lasix Start bumex, entresto, and apixaban as ordered inpatient. Also continue empag, metop succ, empagliflozin. ABx Indications/End Date: N/A Consult Teams Past and Present: Palliaitive Cardiology Pending Workup: N/A Things to Watch: Volume status Disposition Place and Date: SNF; TBD location To Address Prior to DC: N/A - need to discuss SNF placement with sister Remove midline Follow Up Appointments: (Already arranged and need to arranged) Needs cardiology f/u; patient can follow with [facility] cardiology for TR reconstruction since she initially had appt with them. Can also refer to [facility]ology on discharge if family prefers this. Not a candidate for inpatient TR surgery. To Address after DC (F/U etc): Needs CHANCE in 3 months to reassess LA thrombus after switching to Xarelto Shavon Caldwell MD 05/28/2025 9:55 AM [1] 0.9% NaCl 3 mL Intracatheter q8h apixaban 5 mg Oral BID bumetanide 0.5 mg Oral BID busPIRone 10 mg Oral BID cefadroxil 500 mg Oral BID cyanocobalamin 500 mcg Oral QDAY empagliflozin 10 mg Oral QDAY escitalopram 10 mg Oral QDAY guaiFENesin ER 12hr 600 mg Oral q12h insulin aspart 0-18 Units Subcutaneous TID WC insulin glargine 5 Units Subcutaneous AT BEDTIME levothyroxine 75 mcg Enteral Tube QAM metoprolol succinate XL 24hr 100 mg Oral QDAY perflutren lipid microsphere 0.5 mL Intravenous intra-Procedure multiple [START ON 05/29/2025] polyethylene glycol 3350 17 g Oral QDAY sacubitril-valsartan 0.5 tablet Oral BID [START ON 05/29/2025] senna 17.2 mg Oral QDAY spironolactone 12.5 mg Oral QDAY vitamin D3 5,000 Units Oral QDAY [2] [3] SALINE LOCK, INSERT AND MAINTAIN AND 0.9% NaCl AND 0.9% NaCl acetaminophen albuterol HFA albuterol-ipratropium dextrose IV for hypoglycemia OR dextrose IV for hypoglycemia OR glucagon glucose (Diabetic Use) gel Cosigned by Lyndon Fishman MD at 05/28/2025 10:28 PM CDT Associated attestation - Lyndon Fishman MD - 05/28/2025 10:28 PM CDT Images from the original note were not included. Cardiology attending attestation ILyndon MD, have independently performed detailed review and decision making for this patient on the date of service. I have discussed the management with the medical office technician and travel clerk Physician. I reviewed the note including history, physical exam and plan which was scribedunder my supervision. I agree with the findings and plan of care except as I outlined below in my A/ P. I have provided greater than 50% of the total time dedicated to the care of this patient. I have reviewed the patient's medical record including prior external and internal notes. I have reviewed all available test results. I have independently evaluated the patient, reviewed and interpreted all available tests relevant to the patient's presentation, and formulated a plan with the team arriving independently at the same conclusion outlined in this note. I have discussed the managementand test interpretations with other physicians involved in this patient care as well as the patient, family and caregiver. The patient has severe exacerbation of at least one chronic illness and an acute/chronic illness which poses a threat to life of bodily function A/P: 1. Nonischemic cardiomyopathy 2. Prior tricuspid valve endocarditis 3 with prior AICD infection removal in July 2024 4. Severe tricuspid regurgitation 5. Acute on chronic systolic and diastolic heart failure exacerbation 6. Major disability due to TBI 7. Hyponatremia 8. Atrial fibrillation 9. Left atrial thrombus I reviewed the CHANCE which showed very small left atrial appendage thrombus with smoke indicative of low left atrial appendage velocity. The patient is not amenable to any blood draws to consider Coumadin instead of Xarelto and accordingly I will switch her to Eliquis 5 mg twice daily since she wouldnot commit to INR checks with warfarin and the risk outweigh the benefit here with very small LA thrombus. Tolerating GDMT and diet well. Medically stable. Follow- up 2D echo reviewed with mild to moderate MR after diuresis and nonsevere TR. I would recommend medical management of tricuspid valve given history of endocarditis in the past. She will need repeat CHANCE in few months at least 2 to 3 months to evaluate left atrial appendage thrombus and can interrogate her tricuspid valve at that time further. Follow-up with outpatient radar systems engineer. Continue current GDMT. Lyndon Fishman MD, [facility], [facility] Interventional and Structural Cardiology [facility] Business Unit Managerconsumer relations complaint clerk [facility] [employer] Email: [email or web address] Office phone: [phone] [facility]) Office: [phone] * Aleja Owens SLP - 05/28/2025 9:53 AM CDT [facility] Department of Physical Medicine & Rehabilitation Progress Note Patient: Loretta Penn Med Record Number: [id number] Date of : 1960 Age: [age] year old 05/28/25 0953 Missed Visit Missed Visit Procedure In Room (EKG) Speech-Language Pathologist * Hina Prajapati APRN-ORNAMENTAL MACHINE OPERATOR - 05/27/2025 10:26 AM CDT Palliative Medicine Brief Progress Note Loretta Penn Age: [age] year old Date of : 1960 Date of Admission: 05/15/2025 Brief HPI: 64 y/o F with significnat PMH of HFrEF, AICD removal 07/2024 2/2 infected ICD lead, severe TR, MSSATV endocarditis on cefedroxil, a fib on xarelto, intellecutal disability 2/2 TBI, HTN, DM 2, hypothyropidism. Per chart review, patient follows with [facility] primarily. Of note, patient recently admitted at [facility] forHF exacerbation in 02/2025; per chart review, patient transferred to [facility] from OSH for othorpnea + fluid retention for 2-3 weeks. Pt Lasix increased, added spironolactone but had no improvement. BNP elevated to 2800s, at that time, started on IV bumex. EKG showing afib. Echo showing EF 40- 45%. GDMT was optimized to Entresto 24-26 (0.5 tab) BID, metoprolol XR 100 mg daily, spironolactone 25 mg daily, and Jardiance 10 mg daily. Pt presented to [facility] on 05/15 with edema. Labs notable for hyponatremia 122, K of 6.1, INR 2.9, AST 59, Cr 1.48, Tbili 7.0, BNP 2200. CT CAP with moderate pericardial effusion, right heart dysfunction,body wall edema, pulmonary edema. Cardiology team spoke to pt's sister mounika. Per sister, patient can normally get agitated at home, usually over her food. Sister is asking whether we can fix her after he volume status is controlled. Appears to have poor understanding into current situation as family admits that patient will do whatever Loretta wants to do, including eating high salt foods that will worsen her HF exacerbations. Discussed possible need for sedation if patient is not amenable to lab draws, given that per nursing 4 people had to hold patient to get BP taken. Family does not want her to get sedated, but understands the need for it. Pls confirm with family before proceeding with any IV/sedation measures. Pn 05/17, patient with change in mental status, obtunded. Concern for airway protection. Pt intubated, moved to ICU. Palliative care was consulted to assist with complex medical decision making. On CHANCE on 05/20, pt noted to have LA thrombus, DCCV was aborted. Interval update: Pt extubated this morning (05/24) to NE. GOC held per palliative care with family on 05/24. GOC: Patient's family hopeful that she will remain extubated, and progress towards the goal of coming home some day. If patient were to require re-intubation, family would like her to be intubated. However, if she were unable to be extubated again, they does not believe that she would tolerate having a tracheostomy. Patient's family wishes for patient to remain full code at this time in the event of cardiac arrest. Pt passed THEATRE PROGRAM DIRECTOR eval for modified diet on 05/26. Plan: At this time, palliative care will sign off. GOC are clear, and pt appears to be progressing towardthose goals for the time being. Thank you for this consult. KYA Reyes 05/27/2025 10:26 AM Palliative Care Nurse Pracitioner * Carla Love, PT - 05/27/2025 10:07 AM CDT [facility] Physical Medicine and Rehabilitation Physical Therapy Progress Note Patient: Loretta Penn Med Record Number: [id number] Date of : 1960 Age: [age] year old PPE worn by staff: gloves PPE worn by patient: gown - patient, clean;socks - clean Co-treatment w/OT 2/2 to level of skilled assist required for progression towards functional goals Recommendations: Discharge PT Discharge Recommendations: Patient would benefit from multidisciplinary therapy This recommendation is made due to ongoing PT functional needs: address functional deficits Recommended Transportation Method: Stretcher/Ambulance Patient is being recommended for post acute care, therefore DME recommendations will be made at thenext level of care. SUBJECTIVE: Subjective: agreeable to therapy PATIENT GOALS / WHAT MATTERS MOST TO THE PATIENT: Patient's Primary Concern: none stated Pain Assessment: Pain Assessment Pain Scale/Observation: No/denies pain PRECAUTIONS: Weight Bearing Status: (no restrictions) Activity Level: Activity as Tolerated OBJECTIVE: At start of therapy session, patient found in bed General Appearance: 64 y.o. female in NAD Vitals: (*Assess the 3 levels of oxygen saturations both for room air and 02 unless rest on room air is 88% or less). Rest BP: 121/50 (69) HR: 85 Sp02 94% 2 L O2 Post Activity BP: 113/50 (64) HR: 88 Sp02 94% 2 L O2 Observations Pt on continuous ICU monitoring throughout session. No s/s of distress noted throughout session. Multiple cues to redirect to task at hand during session. Minimal assist for static sitting balance while EOB. Pt stands x2 reps, on 2nd rep, pt able to achieve 80% of full stand with cues for glute engagement. Pt returned to supine with assist of 2 and cues for motor planning. Mental Status/Cognition: Orientation Level: Disoriented to Situation;Other (Comment) (Oriented to time with cueing) Cognition: Poor attention or concentration;Confused Attention Span: Difficulty attending to directions Memory: Decreased recall of recent events Following Commands: Follows one step commands with repetition/cues Safety Judgement: Decreased awareness of need for assistance Awareness of Errors: Decreased awareness of deficits Problem Solving: Assistance required to generate solutions Mobility: A gait belt and non-slip socks were used for all out of bed activity this date. Bed Mobility: Supine to Sit: Moderate Assistance with HOB in semi-fowlers position Sit to Supine: Moderate Assistance;X 2 Transfers: Sit to Stand: Maximum Assistance;X 2 (2 sit>stand transfers completed) Stand to Sit: Maximum Assistance;X 2 Transfer Device: Gait belt (close physical assist) Gait: Weight Bearing Status: (no restrictions) Distance Ambulated (ft): 0 FEET (deferred 2/2 poor standing balance) Balance: Balance Scales/Tests Used: Sitting: Static/Dynamic;Standing: Static/Dynamic Sitting - Static: Fair +;With Both Upper Extremity's Support Sitting - Dynamic: Fair;With One Upper Extremity Support Standing - Static: Poor + Standing - Dynamic: Poor ACTIVITY TOLERANCE: Activity Tolerance: Tolerates sitting more than 5 minutes TREATMENT/INTERVENTIONS: strengthening exercises, coordination exercises, bed mobility training, transfer training, balance activities, and monitoring of vitals AM-PAC 6 Clicks Mobility Raw Score:: 8 EDUCATION: While performing PT, Patient was instructed in:functional mobility training, energy conservation, safety awareness/fall precautions , pursed lip breathing techniques, use of adaptive equipment, discharge planning, use of call light Presented to patient who demonstrates Questionable understanding of instructions given. ASSESSMENT: Patient would benefit from additional Physical Therapy sessions to achieve the following functionalgoals to enhance independence. Short Term Goals: Goal Formation With patient Patient will perform bed mobility with moderate assist and X 1 Patient will transfer sit to/from stand with moderate assist and X 1 Patient will transfer bed to/from chair with moderate assist and X 1 Patient will ambulate 25 feet with moderate assist and X 1 Clerk Cashier Goal(s): Patient to discharge to appropriate next level of inpatient care. INFORMED CONSENT TO TREATMENT: Plan of care including recommended therapy, goals and frequency, discussed with patient who understands and agrees to proceed. Equipment Issued: none Plan: Patient continues to benefit from skilled therapy services., Continue with goals as established. If patient is discharged from the facility, this note serves as a discharge summary if further physical therapy visits did not occur. Refer to filed flowsheet for further details. Following therapy session, patient left in bed, with bed alarm on , with call light within reach, with RNSandhya aware, with therapy cues visible on white board, with fall mats in place, all lines/tubes intact. * Cora Ruiz, OT - 05/27/2025 10:06 AM CDT [facility] Physical Medicine and Rehabilitation Occupational Therapy Progress Note Patient: Loretta Penn Med Record Number: [id number] Date of : 1960 Age: [age] year old Co-tx with PT 2/2 skilled assist needed to progress functional mobility PPE worn by staff: gloves PPE worn by patient: gown - patient, clean;socks - clean Recommendations: Discharge OT Discharge Recommendations: Patient would benefit from multidisciplinary therapy This recommendation is made due to ongoing OT functional needs: address functional deficits Nurse and Physical Therapist (co-tx) contacted regarding patient status and/or discharge plan. Activity Level: as tolerated SUBJECTIVE: Subjective: Patient agreeable to therapy. PATIENT GOALS / WHAT MATTERS MOST TO THE PATIENT: Patient's Primary Concern: None stated. Pain Assessment: Pain Assessment Pain Scale/Observation: No/denies pain OBJECTIVE: At start of therapy session, patient found in bed General Appearance: NAD Vitals: (*Assess the 3 levels of oxygen saturations both for room air and 02 unless rest on room air is 88% or less). Rest BP: 121/50 (69) HR: 85 Sp02 Sp02 94% 2 L O2 Post Activity BP: 113/50 (64) HR: 88 Sp02 Sp02 94% 2 L O2 Observations: Patient on continuous ICU monitoring throughout session. No s/s distress noted. Paitent requires maximal verbal and tactile cues to engage in ADL tasks seated EOB. Patient tolerates sitting well, but requires assistance for sitting balance. Mental Status/Cognition: Orientation Level: Disoriented to Situation;Other (Comment) (Oriented to time with cueing) Cognition: Poor attention or concentration;Confused Attention Span: Difficulty attending to directions Memory: Decreased recall of recent events Following Commands: Follows one step commands with repetition/cues Safety Judgement: Decreased awareness of need for assistance Awareness of Errors: Decreased awareness of deficits;Assistance required to identify errors made;Assistance required to correct errors made Problem Solving: Assistance required to generate solutions;Assistance required to identify errors made;Assistance required to implement solutions Mobility: a gait belt and non-slip socks were used for all out of bed activity this date. Bed Mobility: Supine to Sit: Moderate Assistance with HOB in semi-fowlers position Sit to Supine: Moderate Assistance;X 2 Transfers: Sit to Stand: Maximum Assistance;X 2 (2 sit>stand transfers completed) Stand to Sit: Maximum Assistance;X 2 Transfer Device: Gait belt (close physical assist) Functional Ambulation: Deferred 2/2 poor standing balance. Balance: Balance Scales/Tests Used: Sitting: Static/Dynamic;Standing: Static/Dynamic Sitting - Static: Fair +;With Both Upper Extremity's Support Sitting - Dynamic: Fair;With One Upper Extremity Support Standing - Static: Poor + Standing - Dynamic: Poor Activities of Daily Living: Oral Facial Hygiene: Maximal Assistance (Maximal verbal and tactile cues to initiate and complete task of washing face EOB.) Lower Body Dressing: Maximal Assistance (Socks EOB) ACTIVITY TOLERANCE: Activity Tolerance: Tolerates sitting more than 5 minutes;Requires rest breaks AM-PAC 6 Clicks Daily Activity Raw Score:: 12 TREATMENT/INTERVENTIONS: ADL training Cognitive retraining Functional transfer training Endurance training Bed mobility Energy conservation Safety awareness EDUCATION: While performing OT, Patient was instructed in:functional mobility training, self-care training, cognitive retraining, energy conservation, safety awareness/fall precautions , use of call light Presented to patient who demonstrates Questionable understanding of instructions given. INFORMED CONSENT TO TREATMENT: Plan of care is discussed but patient with questionable understanding. ASSESSMENT: Patient continues to benefit from skilled Occupational Therapy to achieve the following functional goals. Short Term Goals: Goal Formation Patient unable to participate in goal formulation Patient will increase orientation to person and place Patient will perform grooming at edge of bed and with stand by assist Patient will transfer to bedside commode with moderate assist and X 2 Patient will perform supine to/from sit with minimal assist Patient will transfer sit to stand with moderate assist Clerk Cashier Goal(s): Patient to discharge to appropriate next level of inpatient care Plan: Patient continues to benefit from skilled therapy services., Continue with goals as established. If patient is discharged from the facility, this note serves as a discharge summary if further occupational therapy visits did not occur. Refer to filed flowsheet for further details. Following therapy session, patient left in bed, with call light within reach, with RNSandhya aware, with fall mats in place, all lines/tubes intact. * Shavon Caldwell MD - 05/27/2025 9:44 AM CDT CARDIOLOGY SERVICE CCU PROGRESS NOTE Admission Date: 05/15/2025 Patient: Loretta Penn (64 year old female) Code Status: Full Code Interval History: PT/OT recommending SNF; pt wants to go home, but knows she is weak. 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 Pt was initially admitted to medicine service and cardiology consulted regarding severity of heart failure and other valvular issues. On admission, labs significant for BNP 2209, trop 24-->23, Na 122, K 6.1, Cr 1.48,alk phos 365, bili 7.7. Pt was shifted with insulin + dextrose, given patiromer and. She was started on IV furosemide TID for acute HFrEF. EKG showing Qtc prolongation. Pt noted to be hypoglycemic in40s on 8/7 AM, hypoglycemia protocol initiated. Patient transferred to primary cardiology service on 05/16 d/t concern that patient may develop cardiogenic shock. On 05/17, decision was made to proceed with light sedation in order to be able to provide meds to pt given that she was not taking any orals d/t sedation; additionally Na in 121-122 range and pt would need more frequent lab draws for mgmt. On transfer to ICU, pt increasing agitated and given IV ativan. Then noted to be obtunded, intubated for airway protection. She was given hypertonic saline 2x, and was also briefly on levophed for BP support. ICU team c/s for mech vent management. Started on nitroprusside drip, but then discontinued d/t no proper BP measurements. Palliative consulted regarding family's understanding of medical conditions and difficult decision making. A line and central line placed. Sedation was discontinued on 05/19 AM, pt responding to name but not following commands. Noted to have afib with RVR overnight, proceeded with CHANCE DCCV. On CHANCE on 05/20, pt noted to have LA thrombus, DCCV was aborted. Lactic increasing on 05/20, given 250cc bolus for c/f hypovolemic shock. Patient unable to extubate d/t inability to follow commands despite weaning sedation between 05/21-05/22. Extubated on 05/24. Passed swallow study on 05/27. Medical Hx: Per chart review, patient follows with [facility] primarily. Of note, patient recently admitted at [facility] forHF exacerbation in 02/2025; per chart review, patient was previously admitted previously at [facility] for MAYS and othorpnea + fluid retention for 2-3 weeks and then transferred to [facility]. [facility] radar systems engineer Dr. Flores increased her lasix from 40qd to BID, added spironolactone but had no improvement. BNPelevated to 2800s, at that time, started on IV bumex. EKG showing afib. Pt received diuresis at [facility] then GDMT was optimized to Entresto 24-26 (0.5 tab) BID, metoprolol XR 100 mg daily, spironolactone 25 mg daily, and Jardiance 10 mg daily. Valve team was consulted during this hospitalization, recommending clinic follow-up without transcatheter tricuspid valve interventions since patient is a poor candidate due to chronic tricuspid valve endocarditis and severe non-ischemic cardiomyopathy with LVEF 25%. Current Medications: Scheduled: Medications[1] Continuous: Medications[2] PRN: Medications[3] Vital Signs: Temp: [98.6 ??F (37 ??C)-99.1 ??F (37.3 ??C)] 98.6 ??F (37 ??C) Pulse: [76-104] 85 Resp: [11-33] 21 BP: (88-116)/(49-105) 113/72 Physical Exam: General: Intubated and sedated, no acute distress Head: normocephalic, atraumatic Eyes: conjunctivae clear, extraocular muscles intact Mouth/Throat: ETT in place CV: regular rate and rhythm, no murmurs appreciated Resp: upper airway sounds, thick secretions. no wheezes or crackles heard Abd: soft, nontender, nondistended, normoactive bowel sounds Extremities: no lower extremity edema, no cyanosis Skin: BLE pitting edema 2+ Neuro: moving all extremities well, no focal deficits Lab Results: Labs have been personally reviewed and are remarkable for the following: CBC: Recent Labs Component Name 05/27/2541605/26/254 05/25/25 0418 WBC 5.8 6.8 5.2 HGB 12.9 12.7 12.5 HCT 40.7 40.3 38.5 MCV 105.7* 105.5* 103.8* Coagulation Panel: Recent Labs Component Name 05/15/25 1454 PT 29.5* INR 2.9 BMP: Recent Labs Component Name 05/27/2541605/26/25 1605 05/26/25 044 NA 142 146* 148* POTASSIUM 4.9* 4.3 4.7* CL 102 105 106 CO2 35* 33* 35* BUN 38* 45* 55* CREATININE 0.70 0.73 0.85 CALCIUM 10.2 9.3 9.8 Recent Labs Component Name 05/27/2541605/26/254 05/25/25 0537 MAGNESIUM 2.0 2.2 2.2 Recent Labs Component Name 05/27/2541605/26/25 1605 05/26/25443 PHOS 4.0 2.8* 3.4 Hepatic Panel: Recent Labs Component Name 05/27/25 0417 05/26/25 1605 05/26/25 0444 05/22/25 0415 05/21/25 1905 05/21/25 1601 05/21/25 0329 05/20/25 1646 05/20/25 0845 05/18/25 0933 05/18/25 0305 05/15/25 2257 05/15/252019 AST - - - - 43* - 37* - 37* - - - - ALT - - - - - - - - ALKPHOS - - - - 230* - 254* - 259* - - - - TBILI - - - - 8.6* - 9.9* - 9.4* - - - 7.0* DBILI - - - - - - - - - - 4.4* - 4.9* IBILI - - - - - - - - - - - - 2.1 ALB 2.1* 2.0* 2.2* - 2.0* - 2.2* - 2.2* 2.2* - 2.6* - - - = values in this interval not displayed. ABG: Recent Labs Component Name 05/22/25 0554 05/22/25 0415 05/21/25 1905 PH 7.45 7.47* 7.45 7.52* PCO2 46* 44 49* PO2 85 68* 87 Amylase/Lipase: Invalid input(s): AMYL, LIPA Thyroid Studies: No results for input(s): TSH, T4 in the last 35744 hours. Cardiac Enzymes: No results for input(s): CKTOTAL, CKMB, TROPONINI in the last 31426 hours. Invalid input(s): CKMBINDEX Lipid Panel: No results for input(s): LDLCALC, HDL in the last 14918 hours. Microbiology: Microbiology Results (Displays last 21 days for this encounter ONLY) Procedure Component Value - Date/Time CULTURE SPUTUM+GRAM STAIN [[id number]] Collected: 05/19/25 1620 Lab Status: Final result Specimen: Microbiology from Sputum Updated: 05/21/25 0808 Culture Light normal oropharyngeal alisa Gram Stain Moderate Gram-negative bacilli Moderate Gram-positive cocci Light Yeast >= 25 per low power field Polymorphonuclear cells <10 per low power field Squamous epithelial cells CULTURE BLOOD [[id number]] (Normal) Collected: 05/17/25 1440 Lab Status: Final result Specimen: Blood Peripheral Updated: 05/22/251930 Culture No growth day 5 MRSA PCR [[id number]] (Normal) Collected: 05/17/25 1440 Lab Status: Final result Specimen: Microbiology from Nasal Updated: 05/17/25 210 MRSA DNA by PCR Not detected Narrative: Methicillin-resistant Staphylococcus aureus (MRSA) DNA is not detected (presumed not colonized withMRSA). CULTURE BLOOD [[id number]] (Normal) Collected: 05/17/25 1436 Lab Status: Final result Specimen: Blood Peripheral Updated: 05/22/251930 Culture No growth day 5 Imaging: CT Head Wo Contrast Result Date: 05/17/2025 IMPRESSION: 1.No acute intracranial hemorrhage, midline shift, or mass effect. 2.Left side the sinusitis. The left nasogastric tube is in place. > Dictated by Claire Ortiz MD, (development vice president). > Dictated by Instrument Technologist I, Tripp Pablo MD have personally reviewed and interpretedthis examination/study. > Interpreting Provider: Tripp Pablo MD on 05/17/2025 9:24 AM XR Abdomen Kub Portable Result Date: 05/17/2025 IMPRESSION: Enteric tube terminates in the gastric body. > Interpreting Provider: Felipe Munoz MD on 05/17/2025 9:[address] Chest Pe W Abd Pelvis W Cont Result Date: 05/15/2025 Impression: 1.No evidence of acute pulmonary embolism. There is a retained metallic wire within oneof the right inferior lobe pulmonary arteries, likely iatrogenic. 2.Cardiomegaly and a moderate-sized pericardial effusion. Reflux of contrast into the hepatic veins suggesting right heart dysfunction. 3.Interstitial pulmonary edema, small volume ascites and diffuse body wall edema suggesting hypervolemia. Preliminary findings were discussed with the patient's care provider, Dr Sil Cordero by Dr. Tom Dinh via telephone at 05/15/2025 8:24 PM with readback comprehension and verification. > Dictated by Tom Dinh DO, (development vice president). > Dictated by Instrument Technologist I, Ann-Marie Campa MD have personally reviewed and interpreted this examination/study. > Interpreting Provider: Ann-Marie Campa MD on 05/15/2025 10:20 PM XR CHEST 2VW Result Date: 05/15/2025 IMPRESSION: A linear wire-like density projects over the right perihilar region. Cardiomegaly. Likely enlarged pulmonary arteries. Mild interstitial edema. Trace pleural effusions. No pneumothorax. 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 Now cardiogenic shock and hyponatremia resolved, and patient passed swallow eval after extubation. Medically stable for discharge. Neurological #Acute encephalopathy, resolved #Agitation, resolved - Pt noted to be obtunded at 4AM on 05/17, was given ativan earlier In the night for agitation - EEG with generalized slowing - sedation weaned off on M - CT head 05/20 - no acute abnormalities - At baseline, pt responds to her name and is able to express what she wants/doesn't want per sister. Has very limited understanding of her medical conditions iso TBI; sisters administer her meds, and otherwise patient reportedly does ADLs. Very non compliant with cardiac diet at home, and has numerous admissions for HF exacerbations in past PLAN: - AVOID BENZOS - Palliative consulted for decision making and complex family situation, following peripherally Cardiovascular: #Atrial fibrillation #Left atrial thrombus - Cont home xarelto, had not previously been getting due to agitation - RVR resolved after digoxin load - Unable to do DCCV d/t LA thrombus PLAN: - Cont xarelto - Stop metop tartrate - start metop succ 100mg qdaily - Will need repeat CHANCE in 3 months on discharge to reassess thrombus #Acute decompensated HF with reduced EF 25% #Peripheral edema in BLE, resolved - TTE done yesterday - Furosemide IV TID given on day of admission - metop and aldactone held on admission as pt not taking oral meds - Manas removed - Levo discontinued - diuresed with bumex 4mg TID earlier in ICU amdission PLAN: - Bumex 0.5mg BID; pls continue this med on discharge - Empagliflozin 10mg, metop succ 100mg qd, entresto 12-13, aldactone 12.5 #Severe TR - Pt prev seen by [facility] valve team who recommended outpt f/u for possible transcatheter TR eval PLAN: - Will discuss with structural; not to have inpt intervention but will need outpt f/u. Pt was supposed to follow with [facility], advise to keep that appointment but will refer to [facility] cardiology in case Hemodynamic monitoring - Titrate pressors to minimum amount to keep MAP goal of >60mmHg Pulmonary: #Acute hypoxemic respiratory failure, resolved - Pt had to be mechanically intubated on 05/17 AM for c/f airway protection PLAN: - Extubated 05/24, passed swallow eval - Pulmonary toilet - Titrate Fi O2 to the lowest needed to keep Sats > 92% - Keep HOB elevated 30 degrees, oral care, aspiration precautions GI: #Hyperbilirubinemia, improving #Elevated alk phos, improving - 2/2 congestive hepatopathy iso HF exacerbation - CTM CMP daily #Constipation - Inc miralax to BID, start senna qd - had many large Bms after enema Renal: #Hypokalemia, resolved #Hypervolemic hyponatremia, resolved - Pt hyperkalemic on arrival, shifted with insulin + dextrose and started on lokelma - Noted to be HypoNa, though baseline may be close to 130-132 - Likely hypervolemic hyponatremia iso cardiogenic shock and ADHF PLAN: - Replete other lytes as needed - RFP Electrolytes: Monitor every 6 hours and replace K if <4, Mg if <2, Phos if <2 Endocrine: #IDDM #Obesity - per notes from 04/19, home regimen is 17U lantus in AM, 12U TID AC + slide 0-10U - Noted to have hypoglycemic episode on 7AM - BG has been ranging 220-300s on 05/20 PLAN: - Cont SSI 0-18U, accuchecks with meals - Cont lantus 5U qhs #Hypothyroidism - Cont home levothyroxine #Uremia - BUN increasing, will ctm RFP. Likely iso hypovolemia from diuresis. Diuretic holiday 05/26 I.D.: #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 - Pt on cefadroxil 100mg BID for chronic ppx - TTE does not show any vegetations, though noted to have L atrial mass on CCTA 07/2024 - Became hypothermic on 05/17 - Infectious w/u negative so far (CXR, UA, Bcx) - 5d course cefepime finished on 05/22 PLAN: - Resumed home cefadroxil; cont on cefadroxil 500mg BID on discharge Ellison culture if Tmax > 100.4 Heme/Onc: PARTH Transfusion Protocol: Hb < 7, Plt < 10 Code Status: Full Code Lines: Peripheral IV Left Antecubital (Active) Placement Date/Time: 05/15/25 1451 Size (Gauge): 20 G Orientation: Left Location: Antecubital Number of days: 1 Peripheral IV Anterior;Right (Active) Placement Date/Time: 05/16/25 2200 Size (Gauge): 20 G Orientation: Anterior;Right Number of days: 0 Peripheral IV Right Antecubital (Active) Placement Date/Time: 05/16/25 2300 Size (Gauge): 20 G Orientation: Right Location: Antecubital Number of days: 0 Enteral - Nasal/Oral Naso-gastric Nostril/Nare;Left (Active) Placement Date/Time: 05/17/25 0700 Type: Naso-gastric Tube Location: Nostril/Nare;Left Internal Length (cm): 60 Number of days: 0 ETT Endotracheal Tube Cuffed-inflated 7.5 MM (Active) Placement Date/Time: 05/17/25 0327 Person who placed: Michael JIMENES Mask Ventilation: easy mask Induction: Rapid Sequence Device: Endotracheal Tube Location: Oral Tube Type: Cuffed-inflated Tube size (MM): 7.5 MM Depth of insertion: 24 CM Measur... Number of days: 0 Arterial Line (Active) Placement Date/Time: 05/17/25 1100 Placed by: Wendi Scruggs Orientation: Right Site: radial Site Prep: Chlorhexidine Local Anesthetic Used?: No Securement Method: Sutured Procedure Tolerance: Well Number of days: 0 Midline 05/17/25 0154 Right Brachial Vein (Active) Placement Date/Time: 05/17/25 0154 IV Catheter Size: (c) Other (Comments) Orientation: Right Location: Brachial Vein Site Prep: Chlorhexidine Placement Verification: Ultrasound Number of days: 0 Urethral Catheter (Active) Placement Date/Time: 05/17/25 0249 Catheter Type : Double lumen/two-way;Non-latex Catheter Balloon Inflated With: 10 mL Number of days: 0 Prophylaxis: Aspiration precautions w/ HOB elevation by 30 degrees GI prophyalxis w/ pantoprazole VTE prophyalxis w/ SCDs, xarelto Diet: DIET MODIFIED CONSISTENCY Activity: Activity as tolerated Disposition: ICU Monitoring The above assessment and plan will be discussed with the attending. This note is not final until attested by attending physician. Shavon Caldwell MD 05/27/2025 9:45 AM 05/17/2025 9:45 AM [facility] Transfer Checklist: Reasons for Transfer to [facility] Medically stable for discharge, waiting for SNF placement with . Will need to discuss SNF with sister Mounika. 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 Was intubated d/t AMS.Was in afib with RVR, not amenable to DCCV d/t LA thrombus, will need repeat CHANCE in 3 months. Switched from Xarelto to Eliquis for c/f DOAC failure; pt does not like lab draws and not amenable to warfarin. Now cardiogenic shock and hyponatremia resolved, and patient passed swallow eval after extubation. Pending placement at SNF per PT/OT recs. Floor transfer initiated 2 days ago, medicine meds available. Medically stable for discharge today, pending placement. Home Meds Being Held: Discontinue the following home xarelto (failure d/t LA thrombus present) Home lasix Start bumex, entresto, and apixaban as ordered inpatient. Also continue empag, metop succ, empagliflozin. ABx Indications/End Date: N/A Consult Teams Past and Present: Palliaitive Cardiology Pending Workup: N/A Things to Watch: Volume status Disposition Place and Date: SNF; TBD location To Address Prior to DC: N/A - need to discuss SNF placement with sister Follow Up Appointments: (Already arranged and need to arranged) Needs cardiology f/u; patient can follow with [facility] cardiology for TR reconstruction since she initially had appt with them. Can also refer to [facility] cardiology on discharge if family prefers this. Not a candidate for inpatient TR surgery. To Address after DC (F/U etc): Needs CHANCE in 3 months to reassess LA thrombus after switching to Xarelto Shavon Caldwell MD 05/27/2025 10:19 AM [1] 0.9% NaCl 3 mL Intracatheter q8h apixaban 5 mg Oral BID bumetanide 0.5 mg Oral BID busPIRone 10 mg Oral BID cefadroxil 500 mg Oral BID cyanocobalamin 500 mcg Oral QDAY empagliflozin 10 mg Oral QDAY escitalopram 10 mg Oral QDAY guaiFENesin ER 12hr 600 mg Oral q12h insulin aspart 0-18 Units Subcutaneous TID WC insulin glargine 5 Units Subcutaneous AT BEDTIME levothyroxine 75 mcg Enteral Tube QAM metoprolol succinate XL 24hr 100 mg Oral QDAY polyethylene glycol 3350 17 g Oral BID sacubitril-valsartan 0.5 tablet Oral BID senna 17.2 mg Oral BID spironolactone 12.5 mg Oral QDAY vitamin D3 5,000 Units Oral QDAY [2] [3] SALINE LOCK, INSERT AND MAINTAIN AND 0.9% NaCl AND 0.9% NaCl acetaminophen albuterol HFA albuterol-ipratropium dextrose IV for hypoglycemia OR dextrose IV for hypoglycemia OR glucagon glucose (Diabetic Use) gel Cosigned by Lyndon Fishman MD at 05/28/2025 10:27 PM CDT Associated attestation - Lyndon Fishman MD - 05/28/2025 10:27 PM CDT Images from the original note were not included. Cardiology attending attestation Eran, Lyndon Fishman MD, have independently performed detailed review and decision making for this patient on the date of service. I have discussed the management with the medical office technician and travel clerk Physician. I reviewed the note including history, physical exam and plan which was scribedunder my supervision. I agree with the findings and plan of care except as I outlined below in my A/ P. I have provided greater than 50% of the total time dedicated to the care of this patient. I have reviewed the patient's medical record including prior external and internal notes. I have reviewed all available test results. I have independently evaluated the patient, reviewed and interpreted all available tests relevant to the patient's presentation, and formulated a plan with the team arriving independently at the same conclusion outlined in this note. I have discussed the managementand test interpretations with other physicians involved in this patient care as well as the patient, family and caregiver. The patient has severe exacerbation of at least one chronic illness and an acute/chronic illness which poses a threat to life of bodily function A/P: 1. Nonischemic cardiomyopathy 2. Prior tricuspid valve endocarditis 3 with prior AICD infection removal in July 2024 4. Severe tricuspid regurgitation 5. Acute on chronic systolic and diastolic heart failure exacerbation 6. Major disability due to TBI 7. Hyponatremia 8. Atrial fibrillation 9. Left atrial thrombus I reviewed the CHANCE which showed very small left atrial appendage thrombus with smoke indicative of low left atrial appendage velocity. The patient is not amenable to any blood draws to consider Coumadin instead of Xarelto and accordingly I will switch her to Eliquis 5 mg twice daily since she wouldnot commit to INR checks with warfarin and the risk outweigh the benefit here with very small LA thrombus. Tolerating GDMT and diet well. Medically stable. Follow- up 2D echo pending. I would recommend medical management of tricuspid valve given history of endocarditis in the past. She will need repeat CHANCE in few months at least 2 to 3 months to evaluate left atrial appendage thrombus and can interrogate her tricuspid valve at that time further. Lyndon Fishman MD, [facility], [facility] Interventional and Structural Cardiology [facility] HospitalDeshaun/[facility] Business Unit Managerconsumer relations complaint clerk [facility] [employer] Email: [email or web address] Office phone: [phone] [place] ([place]) Office: [phone] * Shavon Caldwell MD - 05/26/2025 4:10 PM CDT CARDIOLOGY SERVICE CCU PROGRESS NOTE Admission Date: 05/15/2025 Patient: Loretta Penn (64 year old female) Code Status: Full Code Interval History: Passed swallow study, NG pulled History of Present Illness: Loretta Penn is a 64 year-old female with past medical history significant for HFrEF (EF 25% 02/2025), severe TR, 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 Pt was initially admitted to medicine service and cardiology consulted regarding severity of heart failure and other valvular issues. On admission, labs significant for BNP 2209, trop 24-->23, Na 122, K 6.1, Cr 1.48,alk phos 365, bili 7.7. Pt was shifted with insulin + dextrose, given patiromer and. She was started on IV furosemide TID for acute HFrEF. EKG showing Qtc prolongation. Pt noted to be hypoglycemic in40s on 8 AM, hypoglycemia protocol initiated. Patient transferred to primary cardiology service on 05/16 d/t concern that patient may develop cardiogenic shock. On 05/17, decision was made to proceed with light sedation in order to be able to provide meds to pt given that she was not taking any orals d/t sedation; additionally Na in 121-122 range and pt would need more frequent lab draws for mgmt. On transfer to ICU, pt increasing agitated and given IV ativan. Then noted to be obtunded, intubated for airway protection. She was given hypertonic saline 2x, and was also briefly on levophed for BP support. [facility]. Started on nitroprusside drip, but then discontinued d/t no proper BP measurements. Palliative consulted regarding family's understanding of medical conditions and difficult decision making. A line and central line placed. Sedation was discontinued on 8 AM, pt responding to name but not following commands. Noted to have afib with RVR overnight, proceeded with CHANCE DCCV. On CHANCE on 05/20, pt noted to have LA thrombus, DCCV was aborted. Lactic increasing on 05/20, given 250cc bolus for c/f hypovolemic shock. Patient unable to extubate d/t inability to follow commands despite weaning sedation between 05/21-05/22. Extubated on 05/24. Passed swallow study on 05/27. Medical Hx: Per chart review, patient follows with [facility] primarily. Of note, patient recently admitted at [facility] forHF exacerbation in 02/2025; per chart review, patient was previously admitted previously at [facility] for MAYS and othorpnea + fluid retention for 2-3 weeks and then transferred to [facility]. [facility] radar systems engineer Dr. Flores increased her lasix from 40qd to BID, added spironolactone but had no improvement. BNPelevated to 2800s, at that time, started on IV bumex. EKG showing afib. Pt received diuresis at [facility] then GDMT was optimized to Entresto 24-26 (0.5 tab) BID, metoprolol XR 100 mg daily, spironolactone 25 mg daily, and Jardiance 10 mg daily. Valve team was consulted during this hospitalization, recommending clinic follow-up without transcatheter tricuspid valve interventions since patient is a poor candidate due to chronic tricuspid valve endocarditis and severe non-ischemic cardiomyopathy with LVEF 25%. Current Medications: Scheduled: Medications[1] Continuous: Medications[2] PRN: Medications[3] Vital Signs: Temp: [98.6 ??F (37 ??C)-99.1 ??F (37.3 ??C)] 99.1 ??F (37.3 ??C) Pulse: [79-113] 84 Resp: [11-31] 13 BP: (91-124)/(46-105) 98/70 Physical Exam: General: Intubated and sedated, no acute distress Head: normocephalic, atraumatic Eyes: conjunctivae clear, extraocular muscles intact Mouth/Throat: ETT in place CV: regular rate and rhythm, no murmurs appreciated Resp: upper airway sounds, thick secretions. no wheezes or crackles heard Abd: soft, nontender, nondistended, normoactive bowel sounds Extremities: no lower extremity edema, no cyanosis Skin: BLE pitting edema 2+ Neuro: moving all extremities well, no focal deficits Lab Results: Labs have been personally reviewed and are remarkable for the following: CBC: Recent Labs Component Name 05/26/254 05/25/25 0418 05/24/25 0527 WBC 6.8 5.2 5.7 HGB 12.7 12.5 12.6 HCT 40.3 38.5 36.9 MCV 105.5* 103.8* 97.6 Coagulation Panel: Recent Labs Component Name 05/15/25 1454 PT 29.5* INR 2.9 BMP: Recent Labs Component Name 05/26/25 0444 05/25/25 1721 05/25/25 0537 NA 148* 147* 145 POTASSIUM 4.7* 4.6* 3.9 CL 106 105 105 CO2 35* 34* 34* BUN 55* 59* 54* CREATININE 0.85 0.91 0.92 CALCIUM 9.8 9.6 9.3 Recent Labs Component Name 05/26/25 0444 05/25/25 0537 05/24/25 0527 MAGNESIUM 2.2 2.2 2.3 Recent Labs Component Name 05/26/25 0444 05/25/25 1721 05/25/25 0537 PHOS 3.4 4.2 2.7* Hepatic Panel: Recent Labs Component Name 05/26/25 0444 05/25/25 1721 05/25/25 0537 05/22/25 0415 05/21/25 1905 05/21/25 1601 05/21/25 0329 05/20/25 1646 05/20/25 0845 05/18/25 0933 05/18/25 0305 05/15/257 05/15/252019 AST - - - - 43* - 37* - 37* - - - - ALT - - - - - - - - ALKPHOS - - - - 230* - 254* - 259* - - - - TBILI - - - - 8.6* - 9.9* - 9.4* - - - 7.0* DBILI - - - - - - - - - - 4.4* - 4.9* IBILI - - - - - - - - - - - - 2.1 ALB 2.2* 2.2* 2.1* - 2.0* - 2.2* - 2.2* 2.2* - 2.6* - - - = values in this interval not displayed. ABG: Recent Labs Component Name 05/22/25 0554 05/22/25 0415 05/21/25 1905 PH 7.45 7.47* 7.45 7.52* PCO2 46* 44 49* PO2 85 68* 87 Amylase/Lipase: Invalid input(s): AMYL, LIPA Thyroid Studies: No results for input(s): TSH, T4 in the last 21214 hours. Cardiac Enzymes: No results for input(s): CKTOTAL, CKMB, TROPONINI in the last 92312 hours. Invalid input(s): CKMBINDEX Lipid Panel: No results for input(s): LDLCALC, HDL in the last 54918 hours. Microbiology: Microbiology Results (Displays last 21 days for this encounter ONLY) Procedure Component Value - Date/Time CULTURE SPUTUM+GRAM STAIN [[id number]] Collected: 05/19/25 1620 Lab Status: Final result Specimen: Microbiology from Sputum Updated: 05/21/25 0808 Culture Light normal oropharyngeal alisa Gram Stain Moderate Gram-negative bacilli Moderate Gram-positive cocci Light Yeast >= 25 per low power field Polymorphonuclear cells <10 per low power field Squamous epithelial cells CULTURE BLOOD [[id number]] (Normal) Collected: 05/17/25 1440 Lab Status: Final result Specimen: Blood Peripheral Updated: 05/22/25 1931 Culture No growth day 5 MRSA PCR [[id number]] (Normal) Collected: 05/17/25 1440 Lab Status: Final result Specimen: Microbiology from Nasal Updated: 08/06/03 2106 MRSA DNA by PCR Not detected Narrative: Methicillin-resistant Staphylococcus aureus (MRSA) DNA is not detected (presumed not colonized withMRSA). CULTURE BLOOD [[id number]] (Normal) Collected: 05/17/25 1436 Lab Status: Final result Specimen: Blood Peripheral Updated: 05/22/251930 Culture No growth day 5 Imaging: CT Head Wo Contrast Result Date: 05/17/2025 IMPRESSION: 1.No acute intracranial hemorrhage, midline shift, or mass effect. 2.Left side the sinusitis. The left nasogastric tube is in place. > Dictated by Claire Ortiz MD, (development vice president). > Dictated by Instrument Technologist I, rTipp Pablo MD have personally reviewed and interpretedthis examination/study. > Interpreting Provider: Tripp Pablo MD on 05/17/2025 9:24 AM XR Abdomen Kub Portable Result Date: 05/17/2025 IMPRESSION: Enteric tube terminates in the gastric body. > Interpreting Provider: Felipe Munoz MD on 05/17/2025 9:[address] Chest Pe W Abd Pelvis W Cont Result Date: 05/15/2025 Impression: 1.No evidence of acute pulmonary embolism. There is a retained metallic wire within oneof the right inferior lobe pulmonary arteries, likely iatrogenic. 2.Cardiomegaly and a moderate-sized pericardial effusion. Reflux of contrast into the hepatic veins suggesting right heart dysfunction. 3.Interstitial pulmonary edema, small volume ascites and diffuse body wall edema suggesting hypervolemia. Preliminary findings were discussed with the patient's care provider, Dr Sil Cordero by Dr. Tom Dinh via telephone at 05/15/2025 8:24 PM with readback comprehension and verification. > Dictated by Tom Dinh DO, (development vice president). > Dictated by Instrument Technologist I, Ann-Marie Campa MD have personally reviewed and interpreted this examination/study. > Interpreting Provider: Ann-Marie Campa MD on 05/15/2025 10:20 PM XR CHEST 2VW Result Date: 05/15/2025 IMPRESSION: A linear wire-like density projects over the right perihilar region. Cardiomegaly. Likely enlarged pulmonary arteries. Mild interstitial edema. Trace pleural effusions. No pneumothorax. 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 Pt intubated d/t beingobtunded after ativan, will avoid benzos. Now extubated. Pending further GOC with family, and will work towards improving oral intake. THEATRE PROGRAM DIRECTOR eval ordered. Neurological #Acute encephalopathy, resolving #Agitation - Pt noted to be obtunded at 4AM on 05/17, was given ativan earlier In the night for agitation - EEG with generalized slowing - sedation weaned off on M - CT head 05/20 - no acute abnormalities - At baseline, pt responds to her name and is able to express what she wants/doesn't want per sister. Has very limited understanding of her medical conditions iso TBI; sisters administer her meds, and otherwise patient reportedly does ADLs. Very non compliant with cardiac diet at home, and has numerous admissions for HF exacerbations in past PLAN: - AVOID BENZOS - Palliative consulted for decision making and complex family situation, following peripherally Sedation - titrate to RASS goal of 0 to -1 - Monitor mental status every hour and notify MD if any changes - Fall precautions, Seizure precautions, HOB elevated Cardiovascular: #Atrial fibrillation #Left atrial thrombus - Cont home xarelto, had not previously been getting due to agitation - RVR resolved after digoxin load - Unable to do DCCV d/t LA thrombus PLAN: - Cont xarelto - Metop tartrate 25mg BID; can switch to Toprol when able to tolerate po intake - Will need repeat CHANCE in 3 months on discharge to reassess thrombus #Acute decompensated HF with reduced EF 25% #Peripheral edema in BLE - TTE done yesterday - Furosemide IV TID given on day of admission - metop and aldactone held on admission as pt not taking oral meds - Manas removed - Levo discontinued - diuresed with bumex 4mg TID earlier in ICU amdission PLAN: - Bumex dec to 0.5mg BID; hold for today and resume 05/27 - Empagliflozin 10mg, metop tart 50 BID, entresto 12-13, aldactone 12.5 - switch to metop succ tmrw #Severe TR - Pt prev seen by [facility] valve team who recommended outpt f/u for possible transcatheter TR eval PLAN: - Will discuss with structural; not to have inpt intervention but will need outpt f/u. Pt was supposed to follow with [facility] Hemodynamic monitoring - Titrate pressors to minimum amount to keep MAP goal of >60mmHg Pulmonary: #Acute hypoxemic respiratory failure, resolving - Pt had to be mechanically intubated on 05/17 AM for c/f airway protection PLAN: - Extubated 05/24 - Pulmonary toilet - THEATRE PROGRAM DIRECTOR eval - Titrate Fi O2 to the lowest needed to keep Sats > 92% - Keep HOB elevated 30 degrees, oral care, aspiration precautions GI: #Hyperbilirubinemia #Elevated alk phos. improving - 2/2 congestive hepatopathy iso HF exacerbation - CTM CMP daily #Constipation - Inc miralax to BID, start senna qd - If no BM by today and KUB normal, will administer enema today Nutrition: tube feeds started CTM BM GI prophyalxis: PPI Renal: #Hypokalemia #Hypervolemic hyponatremia, resolved - Pt hyperkalemic on arrival, shifted with insulin + dextrose and started on lokelma - Noted to be HypoNa, though baseline may be close to 130-132 - Likely hypervolemic hyponatremia iso cardiogenic shock and ADHF PLAN: - Replete other lytes as needed - RFP BID Electrolytes: Monitor every 6 hours and replace K if <4, Mg if <2, Phos if <2 Endocrine: #IDDM #Obesity - per notes from 04/19, home regimen is 17U lantus in AM, 12U TID AC + slide 0-10U - Noted to have hypoglycemic episode on M - BG has been ranging 220-300s on 05/20 PLAN: - Cont SSI 0-18U, accuchecks with meals - Cont lantus 5U qhs Monitor accuchecks every 4 hours and use sliding scale to keep glucose between 140 - 180 #Hypothyroidism - Cont home levothyroxine #Uremia - BUN increasing, will ctm RFP. Likely iso hypovolemia from diuresis. Diuretic holiday 05/26 I.D.: #Hypothermia #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 - Pt on cefadroxil 100mg BID for chronic ppx - TTE does not show any vegetations, though noted to have L atrial mass on CCTA 07/2024 - Became hypothermic on 05/17 - Infectious w/u negative so far (CXR, UA, Bcx) - 5d course cefepime finished on 05/22 PLAN: - Resumed home cefadroxil Ellison culture if Tmax > 100.4 Heme/Onc: PAR[facility] Transfusion Protocol: Hb < 7, Plt < 10 Code Status: Full Code Lines: Peripheral IV Left Antecubital (Active) Placement Date/Time: 05/15/25 1451 Size (Gauge): 20 G Orientation: Left Location: Antecubital Number of days: 1 Peripheral IV Anterior;Right (Active) Placement Date/Time: 05/16/25 2200 Size (Gauge): 20 G Orientation: Anterior;Right Number of days: 0 Peripheral IV Right Antecubital (Active) Placement Date/Time: 05/16/25 2300 Size (Gauge): 20 G Orientation: Right Location: Antecubital Number of days: 0 Enteral - Nasal/Oral Naso-gastric Nostril/Nare;Left (Active) Placement Date/Time: 05/17/25 0700 Type: Naso-gastric Tube Location: Nostril/Nare;Left Internal Length (cm): 60 Number of days: 0 ETT Endotracheal Tube Cuffed-inflated 7.5 MM (Active) Placement Date/Time: 05/17/25 0327 Person who placed: Michael JIMENES Mask Ventilation: easy mask Induction: Rapid Sequence Device: Endotracheal Tube Location: Oral Tube Type: Cuffed-inflated Tube size (MM): 7.5 MM Depth of insertion: 24 CM Measur... Number of days: 0 Arterial Line (Active) Placement Date/Time: 05/17/25 1100 Placed by: Wendi Scruggs Orientation: Right Site: radial Site Prep: Chlorhexidine Local Anesthetic Used?: No Securement Method: Sutured Procedure Tolerance: Well Number of days: 0 Midline 05/17/25 0154 Right Brachial Vein (Active) Placement Date/Time: 05/17/25 0154 IV Catheter Size: (c) Other (Comments) Orientation: Right Location: Brachial Vein Site Prep: Chlorhexidine Placement Verification: Ultrasound Number of days: 0 Urethral Catheter (Active) Placement Date/Time: 05/17/25248 Catheter Type : Double lumen/two-way;Non-latex Catheter Balloon Inflated With: 10 mL Number of days: 0 Prophylaxis: Aspiration precautions w/ HOB elevation by 30 degrees GI prophyalxis w/ pantoprazole VTE prophyalxis w/ SCDs, xarelto Diet: DIET TUBE FEEDING CONTINUOUS DIET MODIFIED CONSISTENCY Activity: Activity as tolerated Disposition: ICU Monitoring The above assessment and plan will be discussed with the attending. This note is not final until attested by attending physician. Shavon Caldwell MD 05/26/2025 4:14 PM 05/17/2025 4:14 PM [1] 0.9% NaCl 3 mL Intracatheter q8h albuterol-ipratropium 3 mL Inhalation q4h WA apixaban 5 mg Oral BID [Held by Provider] bumetanide 0.5 mg Oral BID busPIRone 10 mg Oral BID cefadroxil 500 mg Oral BID [START ON 05/27/2025] cyanocobalamin 500 mcg Oral QDAY [START ON 05/27/2025] empagliflozin 10 mg Oral QDAY escitalopram 10 mg Oral QDAY guaiFENesin ER 12hr 600 mg Oral q12h [START ON 05/27/2025] insulin aspart 0-18 Units Subcutaneous TID WC insulin glargine 5 Units Subcutaneous AT BEDTIME levothyroxine 75 mcg Enteral Tube QAM metoprolol tartrate IR 50 mg Oral q12h polyethylene glycol 3350 17 g Oral BID sacubitril-valsartan 0.5 tablet Oral BID senna 17.2 mg Oral BID spironolactone 12.5 mg Oral QDAY vitamin D3 5,000 Units Oral QDAY [2] [3] SALINE LOCK, INSERT AND MAINTAIN AND 0.9% NaCl AND 0.9% NaCl acetaminophen albuterol HFA dextrose IV for hypoglycemia OR dextrose IV for hypoglycemia OR glucagon glucose (Diabetic Use) gel Cosigned by Lyndon Fishman MD at 05/26/2025 4:26 PM CDT Associated attestation - Lyndon Fishman MD - 05/26/2025 4:26 PM CDT Images from the original note were not included. Cardiology attending attestation I, Lyndon Fishman MD, have independently performed detailed review and decision making for this patient on the date of service. I have discussed the management with the medical office technician and travel clerk Physician. I reviewed the note including history, physical exam and plan which was scribedunder my supervision. I agree with the findings and plan of care except as I outlined below in my A/ P. I have provided greater than 50% of the total time dedicated to the care of this patient. I have reviewed the patient's medical record including prior external and internal notes. I have reviewed all available test results. I have independently evaluated the patient, reviewed and interpreted all available tests relevant to the patient's presentation, and formulated a plan with the team arriving independently at the same conclusion outlined in this note. I have discussed the managementand test interpretations with other physicians involved in this patient care as well as the patient, family and caregiver. The patient has severe exacerbation of at least one chronic illness and an acute/chronic illness which poses a threat to life of bodily function A/P: 1. Nonischemic cardiomyopathy 2. Prior tricuspid valve endocarditis 3 with prior AICD infection removal in July 2024 4. Severe tricuspid regurgitation 5. Acute on chronic systolic and diastolic heart failure exacerbation 6. Major disability due to TBI 7. Hyponatremia 8. Atrial fibrillation 9. Left atrial thrombus I reviewed the CHANCE which showed very small left atrial appendage thrombus with smoke indicative of low left atrial appendage velocity. The patient is not amenable to any blood draws to consider Coumadin instead of Xarelto and accordingly I will switch her to Eliquis 5 mg twice daily since she wouldnot commit to INR checks with warfarin and the risk outweigh the benefit here with very small LA thrombus. Will optimize her GDMT further. She passed a swallow eval if she is able to tolerate full diet tomorrow then plan for discharge on current GDMT and follow-up with outpatient radar systems engineer. I would recommend medical management of tricuspid valve given history of endocarditis in the past. She will need repeat CHANCE in few months at least 2 to 3 months to evaluate left atrial appendage thrombus and can interrogate her tricuspid valve at that time further. Lyndon Fishman MD, [facility], [facility] Interventional and Structural Cardiology [facility] HospitalDeshaun/[facility] Business Unit Managerconsumer relations complaint clerk [facility] [employer] Email: [email or web address] Office phone: [phone] [place] ([place]) Office: [phone] * Bonnie Guzman, OT - 05/26/2025 1:30 PM CDT [facility] Rehabilitation Occupational Therapy Initial Evaluation Note Patient: Loretta Penn Med Record Number: [id number] Date of : 1960 Age: [age] year old PPE worn by staff: gloves PPE worn by patient: gown - patient, clean Co-eval w/ PT Recommendations: Discharge OT Discharge Recommendations: Patient would benefit from multidisciplinary therapy This recommendation is made due to ongoing OT functional needs: address functional deficits Recommended Transportation Method: Stretcher/Ambulance In addition to the 1:1 evaluation of the patient, additional eval time was spent completing the chart review prior to the assessment, completing the multidisciplinary plan of care and education plan post evaluation and communicating results of the eval to other treatment team members. Nurse and Physical Therapist contacted regarding patient status and/or discharge plan. Physician Orders: Evaluation and Treat Activity Level: as tolerated PRECAUTIONS: Medical/Surgical Precaution: (fall risk) DIAGNOSIS: Problem List[1] Past Medical History[2] SUBJECTIVE: Subjective: pt generally agreeable to therapy PATIENT GOALS / WHAT MATTERS MOST TO THE PATIENT: Patient's Primary Concern: not stated Home Situation: Type of Residence: Private Residence Living arrangement: Alone Equipment at Home: Walker Additional Information (OT): Pt questionable historian - no family at bedside to assist Prior Level of Functioning: Mobility: With Assistive Device Pain Assessment: Pain Assessment Pain Scale/Observation: No/denies pain OBJECTIVE: At start of therapy session, patient found in bed. General Appearance: Patient is a 64 year old female. Patient soiled of urine at PT entry. LDAs: ICU: IV's: Peripheral line and midline, Catheter: External, Oxygen Nasal Cannula , and Telemetry Edema: minimal edema noted in right lower extremity and minimal edema noted in left lower extremity Vitals: (*Assess the 3 levels of oxygen saturations both for room air and 02 unless rest on room air is 88% or less). Rest BP: 113/54 (73) HR: 80 Sp02 95% 3L O2 Post Activity BP: 95/61 (69) HR: 78 Sp02 92% 2L O2 Mental Status/Cognition: Orientation Level: Disoriented to Time;Disoriented to Situation;Disoriented to Place Cognition: Confused;Poor attention or concentration Attention Span: Difficulty attending to directions Memory: Not assessed Following Commands: Follows one step commands with repetition/cues Safety Judgement: Decreased awareness of need for safety Awareness of Errors: Decreased awareness of deficits Problem Solving: Assistance required to identify errors made;Assistance required to generate solutions;Assistance required to implement solutions UE ROM: RUE: AROM WFL LUE: AROM WFL Strength: based on functional observation RUE: WFL LUE: WFL UE Tone RUE: no abnormal tone noted LUE: no abnormal tone noted Coordination: WFL UE Proprioception RUE: WFL LUE: WFL UE Sensation RUE: no complaints of numbness or tingling LUE: no complaints of numbness or tingling Perception: Inattention/Neglect: Appears intact Initiation: Cues to initiate tasks Mobility: A gait belt and non-slip socks were used for all out of bed activity this date. Bed Mobility: Supine to Sit: Moderate Assistance;X 2 with HOB in semi-fowlers position Sit to Supine: Moderate Assistance;X 2 Transfers: Sit to Stand: Maximum Assistance;X 2 (x2 reps) Stand to Sit: Maximum Assistance;X 2 Transfer Device: Gait belt Balance: Balance Scales/Tests Used: Sitting: Static/Dynamic;Standing: Static/Dynamic Sitting - Static: Fair + Sitting - Dynamic: Fair Standing - Static: Poor + Standing - Dynamic: Poor;With Both Upper Extremity's Support Activities of Daily Living Upper Body Dressing: Moderate Assistance (d/d gown seated EOB) Lower Body Dressing: Maximal Assistance (d/d mesh underwear, don socks seated EOB) Toileting: Total Assistance (in standing with assist of 2 for standing balance) Splint Issued/Checked: none ACTIVITY TOLERANCE: Activity Tolerance: Tolerates sitting more than 5 minutes AM-PAC 6 Clicks Daily Activity Raw Score:: 14 TREATMENT / EDUCATION / INTERVENTIONS: While performing OT, Patient was instructed in:use of call light, OT assessment Presented to patient who demonstrates Questionable understanding of instructions given. INFORMED CONSENT TO TREATMENT: Plan of care is discussed but patient with questionable understanding. ASSESSMENT: Functional performance limited due to: limited activities of daily living, decreased functional mobility, decreased functional balance, decreased cognition , decreased safety awareness, and decreasedendurance and activity tolerance. Short Term Goals: Goal Formation Patient unable to participate in goal formulation Patient will increase orientation to person and place Patient will perform grooming at edge of bed and with stand by assist Patient will transfer to bedside commode with moderate assist and X 2 Patient will perform supine to/from sit with minimal assist Patient will transfer sit to stand with moderate assist Clerk Cashier Goal(s): Patient to discharge to appropriate next level of inpatient care. Plan: Patient continues to benefit from skilled therapy services. If patient is discharged from the facility, this note serves as a discharge summary if further occupational therapy visits did not occur. Refer to filed flowsheet for further details. Following therapy session, patient left in bed, with bed alarm on , with call light within reach, with RN in room, all lines/tubes intact. [1] Patient Active Problem List: Hyperkalemia Hyperbilirubinemia Hyponatremia Transaminitis Elevated alkaline phosphatase level Acute on chronic congestive heart failure, unspecified heart failure type (HCC) Obesity with serious comorbidity, unspecified class, unspecified obesity type Demand ischemia (HCC) History of endocarditis TBI (traumatic brain injury) (HCC) Hypothyroidism Atrial fibrillation (HCC) Prolonged Q-T interval on ECG Pericardial effusion (HCC) Acute kidney injury Type 2 diabetes mellitus, without long-term current use of insulin (HCC) Shortness of breath Other shock (HCC) [2] Past Medical History: Diagnosis Date Arrhythmia Cataracts, bilateral Depression Diabetes mellitus (HCC) Hypertension Overactive bladder * Teri Willis, PT - 05/26/2025 10:49 AM CDT [facility] Physical Therapy Initial Evaluation Note Patient: Loretta Penn Med Record Number: [id number] Date of : 1960 Age: [age] year old PPE worn by staff: gloves PPE worn by patient: gown - patient, clean Co-eval w/ OT Bonnie Recommendations: Discharge PT Discharge Recommendations: Patient would benefit from multidisciplinary therapy This recommendation is made due to ongoing PT functional needs: address care for self in the home;address functional deficits Recommended Transportation Method: Stretcher/Ambulance In addition to the 1:1 evaluation of the patient, additional eval time was spent completing the chart review prior to the assessment, completing the multidisciplinary plan of care and education plan post evaluation and communicating results of the eval to other treatment team members. Patient is being recommended for post acute care, therefore DME recommendations will be made at thenext level of care. Nurse and Occupational Therapist contacted regarding patient status and/or discharge plan. Physician Orders: Evaluation and Treat PRECAUTIONS: Weight Bearing Status: (No WBing restrictions) Activity Level: Activity as Tolerated DIAGNOSIS: Problem List[1] Past Medical History[2] SUBJECTIVE: Subjective: Patient agreeable to PT services. PATIENT GOALS / WHAT MATTERS MOST TO THE PATIENT: Patient's Primary Concern: did not state Home Situation: Type of Residence: Private Residence Living arrangement: Alone Equipment at Home: Walker Additional Information (PT): Pt questionable historian - no family at bedside to assist Prior Level of Functioning: Prior Level of Function Mobility: With Assistive Device Pain Assessment: Pain Assessment Pain Scale/Observation: No/denies pain OBJECTIVE: At start of therapy session, patient found in bed. General Appearance: Patient is a 64 year old female. Patient soiled of urine at PT entry. LDAs: ICU: IV's: Peripheral line and midline, Catheter: External, Oxygen Nasal Cannula , and Telemetry Edema: minimal edema noted in right lower extremity and minimal edema noted in left lower extremity Vitals: (*Assess the 3 levels of oxygen saturations both for room air and 02 unless rest on room air is 88% or less). Rest BP: 113/54 (73) HR: 80 Sp02 95% 3L O2 Post Activity BP: 95/61 (69) HR: 78 Sp02 92% 2L O2 Observations: Patient required 2 person assist for bed mobility and standing attempts. Patient w/ posterior lean unable to correct balance despite cueing. Patient w/ faint voice throughout and would occasionally not respond to questioning. Mental Status/Cognition: Level of Consciousness-Adult: Responds to voice Orientation Level: Disoriented to Situation;Disoriented to Time;Disoriented to Place Cognition: Confused;Poor attention or concentration ROM: RLE: AROM WFL LLE: AROM WFL Strength: RLE:3/5 w/ gross function LLE: 3/5 w/ gross function Tone: RLE: no abnormal tone noted LLE: no abnormal tone noted Coordination: RLE: not tested LLE: not tested Sensation: RLE: not tested d/t cognition LLE: not tested d/t cognition Mobility: A gait belt and non-slip socks were used for all out of bed activity this date. Bed Mobility: Supine to Sit: Moderate Assistance;X 2 with HOB in semi-fowlers position Sit to Supine: Moderate Assistance;X 2 Transfers: Sit to Stand: Maximum Assistance;X 2 Stand to Sit: Maximum Assistance;X 2 Transfer Device: Gait belt Gait: Weight Bearing Status: (No WBing restrictions) Distance Ambulated (ft): 0 FEET (unable to maintain standing balance to progress steps at EOB) Balance: Balance Scales/Tests Used: Sitting: Static/Dynamic;Standing: Static/Dynamic Sitting - Static: Fair + Sitting - Dynamic: Fair Standing - Static: Poor + Standing - Dynamic: Poor ACTIVITY TOLERANCE: Activity Tolerance: Tolerates sitting more than 5 minutes TREATMENT/INTERVENTIONS: evaluation AM-PAC 6 Clicks Mobility Raw Score:: 7 EDUCATION: While performing PT, Patient was instructed in:functional mobility training, self-care training, safety awareness/fall precautions , discharge planning Presented to patient who demonstrates Questionable understanding of instructions given. INFORMED CONSENT TO TREATMENT: Plan of care is discussed but patient with questionable understanding. ASSESSMENT: Patient would benefit from additional Physical Therapy sessions to achieve the following functionalgoals to enhance independence. Short Term Goals: Goal Formation With patient Patient will perform bed mobility with moderate assist and X 1 Patient will transfer sit to/from stand with moderate assist and X 1 Patient will transfer bed to/from chair with moderate assist and X 1 Patient will ambulate 25 feet with moderate assist and X 1 Clerk Cashier Goal(s): Patient to discharge to appropriate next level of inpatient care. Equipment Issued: gait belt Plan: Gait training Transfer training Assistive device training Endurance training Bed mobility training Balance training Safety awareness If patient is discharged from the facility, this note serves as a discharge summary if further physical therapy visits did not occur. Refer to filed flowsheet for further details. Following therapy session, patient left in bed, with call light within reach, with RN in room, Marek Benites, with therapy cues visible on white board, all lines/tubes intact. [1] Patient Active Problem List: Hyperkalemia Hyperbilirubinemia Hyponatremia Transaminitis Elevated alkaline phosphatase level Acute on chronic congestive heart failure, unspecified heart failure type (HCC) Obesity with serious comorbidity, unspecified class, unspecified obesity type Demand ischemia (HCC) History of endocarditis TBI (traumatic brain injury) (HCC) Hypothyroidism Atrial fibrillation (HCC) Prolonged Q-T interval on ECG Pericardial effusion (HCC) Acute kidney injury Type 2 diabetes mellitus, without long-term current use of insulin (HCC) Shortness of breath Other shock (HCC) [2] Past Medical History: Diagnosis Date Arrhythmia Cataracts, bilateral Depression Diabetes mellitus (HCC) Hypertension Overactive bladder * Nicole Johnson, THEATRE PROGRAM DIRECTOR - 05/26/2025 9:08 AM CDT [facility] Physical Medicine and Rehabilitation Swallow Treatment Patient: Loretta Penn Med Record Number: [id number] Date of : 1960 Age: [age] year old PPE: PPE worn by staff: gloves PPE worn by patient: gown - patient, clean Impressions: Pt seen at bedside for dysphagia tx. Pt presents with improved oropharyngeal swallow. Administered trials of ice chips, thin liquids, puree, and general solids. Pt demonstrated volitional cough with sequential sips of thin but improved with decreased rate of intake. Recommend patient receive a modified diet of Minced & Moist (5)/Mech Altered (DYS2) with thin liquids. Recommendations: Diet Liquids Recommendation: Thin/ Thin (0) Diet Solids Recommendation: Minced & Moist (5)/Mechanically Altered Dys 2 Recommended Form of Meds: As Tolerated Compensatory Swallowing Strategies: 90 Degrees elevation for all oral intake;Small bites/sips;Eat/Feed slowly Recommended Tests/Consults: Recommendations: Dysphagia Treatment Discharge Recommendations: Speech therapy is recommended to improve swallow function. SUBJECTIVE: Patient Goals:thank you Pain Assessment: 0/10 OBJECTIVE: Level of Consciousness: alert Orientation Level: oriented to person Positioning: Upright in bed Respiratory Status: nasal cannula: 2lpm Swallow Trials: Ice chips: Presentation: Spoon-Assisted Oral: Within Functional Limits Pharyngeal: Within Functional LImits Thin Liquid: Presentation: Straw-Assisted Oral: Increased Anterior to Posterior Transit Pharyngeal: Delayed Swallow Puree: Presentation: Spoon-Assisted Oral: Within Functional Limits Pharyngeal: Within Functional LImits Solid: Presentation: Assisted Oral: Impaired Mastication;Increased Anterior to Posterior Transit;Delayed Initiation Pharyngeal: Delayed Swallow Assessment: Risk For Aspiration: Mild Primary Diagnostic Impression - Oral: No dysphagia Primary Diagnostic Impression - Pharyngeal: Mild;Dysphagia Treatment/Education/Interventions: While performing THEATRE PROGRAM DIRECTOR, Patient was instructed in: diet/liquid recommendations. Patient demonstrated Fair understanding of instructions given. Nurse contacted regarding results of treatment session. INFORMED CONSENT TO TREATMENT: Plan of care including recommended therapy, goals and frequency, discussed with patient who understands and agrees to proceed. Short Term Goals Patient will tolerate recommended food and liquid consistencies without clinical signs of aspiration. Assisted Goal (s): Patient to be independent/baseline with functional mobility and self care and be able to safely discharge to prior level of care. 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 Pt was initially admitted to medicine service and cardiology consulted regarding severity of heart failure and other valvular issues. On admission, labs significant for BNP 2209, trop 24-->23, Na 122, K 6.1, Cr 1.48,alk phos 365, bili 7.7. Pt was shifted with insulin + dextrose, given patiromer and. She was started on IV furosemide TID for acute HFrEF. EKG showing Qtc prolongation. Pt noted to be hypoglycemic in40s on 05/16 AM, hypoglycemia protocol initiated. Patient transferred to primary cardiology service on 05/16 d/t concern that patient may develop cardiogenic shock. On 05/17, decision was made to proceed with light sedation in order to be able to provide meds to pt given that she was not taking any orals d/t sedation; additionally Na in 121-122 range and pt would need more frequent lab draws for mgmt. On transfer to ICU, pt increasing agitated and given IV ativan. Then noted to be obtunded, intubated for airway protection. She was given hypertonic saline 2x, and was also briefly on levophed for BP support. ICU team c/s for mech vent management. Started on nitroprusside drip, but then discontinued d/t no proper BP measurements. Palliative consulted regarding family's understanding of medical conditions and difficult decision making. A line and central line placed. Sedation was discontinued on 05/19 AM, pt responding to name but not following commands. Noted to have afib with RVR overnight, proceeded with CHANCE DCCV. On CHANCE on 05/20, pt noted to have LA thrombus, DCCV was aborted. Lactic increasing on 05/20, given 250cc bolus for c/f hypovolemic shock. Patient unable to extubate d/t inability to follow commands despite weaning sedation between 05/21-05/22. Medical Hx: Per chart review, patient follows with [facility] primarily. Of note, patient recently admitted at [facility] forHF exacerbation in 02/2025; per chart review, patient was previously admitted previously at [facility] for MAYS and othorpnea + fluid retention for 2-3 weeks and then transferred to [facility]. [facility] radar systems engineer Dr. Flores increased her lasix from 40qd to BID, added spironolactone but had no improvement. BNPelevated to 2800s, at that time, started on IV bumex. EKG showing afib. [facility] to Entresto 24-26 (0.5 tab) BID, metoprolol XR 100 mg daily, spironolactone 25 mg daily, and Jardiance 10 mg daily. Valve team was consulted during this hospitalization, recommending clinic follow-up without transcatheter tricuspid valve interventions since patient is a poor candidate due to chronic tricuspid valve endocarditis and severe non-ischemic cardiomyopathy with LVEF 25%. Current Medications: Scheduled: Medications[1] Continuous: Medications[2] PRN: Medications[3] Vital Signs: Temp: [98.3 ??F (36.8 ??C)-98.9 ??F (37.2 ??C)] 98.9 ??F (37.2 ??C) Pulse: [85-116] 90 Resp: [10-31] 23 BP: (90-116)/(47-76) 104/68 O2 %: [36 %] 36 % Physical Exam: General: Intubated and sedated, no acute distress Head: normocephalic, atraumatic Eyes: conjunctivae clear, extraocular muscles intact Mouth/Throat: ETT in place CV: regular rate and rhythm, no murmurs appreciated Resp: upper airway sounds, thick secretions. no wheezes or crackles heard Abd: soft, nontender, nondistended, normoactive bowel sounds Extremities: no lower extremity edema, no cyanosis Skin: BLE pitting edema 2+ Neuro: moving all extremities well, no focal deficits Lab Results: Labs have been personally reviewed and are remarkable for the following: CBC: Recent Labs Component Name 05/25/25 0418 05/24/25 0527 05/23/25 0326 WBC 5.2 5.7 5.8 HGB 12.5 12.6 12.7 HCT 38.5 36.9 36.3 MCV 103.8* 97.6 94.0 Coagulation Panel: Recent Labs Component Name 05/15/25 1454 PT 29.5* INR 2.9 BMP: Recent Labs Component Name 05/25/25 0537 08/15/162605/24/25526 NA 145 142 142 POTASSIUM 3.9 4.4 4.1 CL 105 105 103 CO2 34* 29 28 BUN 54* 50* 41* CREATININE 0.92 1.05* 0.93 CALCIUM 9.3 9.3 9.1 Recent Labs Component Name 05/25/25 0537 05/24/25 0527 05/23/25 032 MAGNESIUM 2.2 2.3 2.4 Recent Labs Component Name 05/25/25 0537 05/24/25 16205/24/25526 PHOS 2.7* 4.6 4.3 Hepatic Panel: Recent Labs Component Name 05/25/25 0537 05/24/25 1627 05/24/25 0527 05/22/25 0415 05/21/25 19005/21/25 1601 05/21/25 0329 05/20/25 1646 05/20/25 0845 05/18/25 0933 05/18/25 0305 05/15/25 2257 05/15/252019 AST - - - - 43* - 37* - 37* - - - - ALT - - - - - - - - ALKPHOS - - - - 230* - 254* - 259* - - - - TBILI - - - - 8.6* - 9.9* - 9.4* - - - 7.0* DBILI - - - - - - - - - - 4.4* - 4.9* IBILI - - - - - - - - - - - - 2.1 ALB 2.1* 2.1* 2.0* - 2.0* - 2.2* - 2.2* 2.2* - 2.6* - - - = values in this interval not displayed. ABG: Recent Labs Component Name 05/22/25 0554 05/22/2541405/21/251904 PH 7.45 7.47* 7.45 7.52* PCO2 46* 44 49* PO2 85 68* 87 Amylase/Lipase: Invalid input(s): AMYL, LIPA Thyroid Studies: No results for input(s): TSH, T4 in the last 85183 hours. Cardiac Enzymes: No results for input(s): CKTOTAL, CKMB, TROPONINI in the last 32387 hours. Invalid input(s): CKMBINDEX Lipid Panel: No results for input(s): LDLCALC, HDL in the last 50254 hours. Microbiology: Microbiology Results (Displays last 21 days for this encounter ONLY) Procedure Component Value - Date/Time CULTURE SPUTUM+GRAM STAIN [[id number]] Collected: 05/19/25 1620 Lab Status: Final result Specimen: Microbiology from Sputum Updated: 05/21/25 0808 Culture Light normal oropharyngeal alisa Gram Stain Moderate Gram-negative bacilli Moderate Gram-positive cocci Light Yeast >= 25 per low power field Polymorphonuclear cells <10 per low power field Squamous epithelial cells CULTURE BLOOD [[id number]] (Normal) Collected: 05/17/25 1440 Lab Status: Final result Specimen: Blood Peripheral Updated: 05/22/25 1931 Culture No growth day 5 MRSA PCR [[id number]] (Normal) Collected: 05/17/25 1440 Lab Status: Final result Specimen: Microbiology from Nasal Updated: 05/17/25 2106 MRSA DNA by PCR Not detected Narrative: Methicillin-resistant Staphylococcus aureus (MRSA) DNA is not detected (presumed not colonized withMRSA). CULTURE BLOOD [[id number]] (Normal) Collected: 05/17/25 1436 Lab Status: Final result Specimen: Blood Peripheral Updated: 05/22/25 193 Culture No growth day 5 Imaging: CT Head Wo Contrast Result Date: 05/17/2025 IMPRESSION: 1.No acute intracranial hemorrhage, midline shift, or mass effect. 2.Left side the sinusitis. The left nasogastric tube is in place. > Dictated by Claire Ortiz MD, (development vice president). > Dictated by Instrument Technologist I, Tripp Pablo MD have personally reviewed and interpretedthis examination/study. > Interpreting Provider: Tripp Pablo MD on 05/17/2025 9:24 AM XR Abdomen Kub Portable Result Date: 05/17/2025 IMPRESSION: Enteric tube terminates in the gastric body. > Interpreting Provider: Felipe Munoz MD on 05/17/2025 9:[address] Chest Pe W Abd Pelvis W Cont Result Date: 05/15/2025 Impression: 1.No evidence of acute pulmonary embolism. There is a retained metallic wire within oneof the right inferior lobe pulmonary arteries, likely iatrogenic. 2.Cardiomegaly and a moderate-sized pericardial effusion. Reflux of contrast into the hepatic veins suggesting right heart dysfunction. 3.Interstitial pulmonary edema, small volume ascites and diffuse body wall edema suggesting hypervolemia. Preliminary findings were discussed with the patient's care provider, Dr Sil Cordero by Dr. Tom Dinh via telephone at 05/15/2025 8:24 PM with readback comprehension and verification. > Dictated by Tom Dinh DO, (development vice president). > Dictated by Instrument Technologist I, Ann-Marie Campa MD have personally reviewed and interpreted this examination/study. > Interpreting Provider: Ann-Marie Campa MD on 05/15/2025 10:20 PM XR CHEST 2VW Result Date: 05/15/2025 IMPRESSION: A linear wire-like density projects over the right perihilar region. Cardiomegaly. Likely enlarged pulmonary arteries. Mild interstitial edema. Trace pleural effusions. No pneumothorax. 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 Pt intubated d/t beingobtunded after ativan, will avoid benzos. Now extubated. Pending further GOC with family, and will work towards improving oral intake. THEATRE PROGRAM DIRECTOR eval ordered. Neurological #Acute encephalopathy, resolving #Agitation - Pt noted to be obtunded at 4AM on 05/17, was given ativan earlier In the night for agitation - EEG with generalized slowing - sedation weaned off on M - CT head 05/20 - no acute abnormalities - At baseline, pt responds to her name and is able to express what she wants/doesn't want per sister. Has very limited understanding of her medical conditions iso TBI; sisters administer her meds, and otherwise patient reportedly does ADLs. Very non compliant with cardiac diet at home, and has numerous admissions for HF exacerbations in past PLAN: - Discontinue precedex - AVOID BENZOS - Palliative consulted for decision making and complex family situation Sedation - titrate to RASS goal of 0 to -1 - Monitor mental status every hour and notify MD if any changes - Fall precautions, Seizure precautions, HOB elevated Cardiovascular: #Atrial fibrillation #Left atrial thrombus - Cont home xarelto, had not previously been getting due to agitation - RVR resolved after digoxin load - Unable to do DCCV d/t LA thrombus PLAN: - Cont xarelto - Metop tartrate 25mg BID; can switch to Toprol when able to tolerate po intake - Will need repeat CHANCE in 1 month (around 06/20) to reassess thrombus #Acute decompensated HF with reduced EF 25% #Peripheral edema in BLE - TTE done yesterday - Furosemide IV TID given on day of admission - metop and aldactone held on admission as pt not taking oral meds - Manas removed - Levo discontinued - diuresed with bumex 4mg TID earlier in ICU amdission PLAN: - Bumex 1mg po BID - Empagliflozin 10mg - Hold GDMT iso shock: holding spironactone, metop succ - Xavier march for hypothermia #Severe TR - Pt prev seen by [facility] valve team who recommended outpt f/u for possible transcatheter TR eval PLAN: - Will discuss with structural; likely not to have inpt intervention but will need outpt f/u Hemodynamic monitoring - Titrate pressors to minimum amount to keep MAP goal of >60mmHg Pulmonary: #Acute hypoxemic respiratory failure, resolving - Pt had to be mechanically intubated on 88 AM for c/f airway protection PLAN: - Extubated today 05/24 - Pulmonary toilet - THEATRE PROGRAM DIRECTOR eval - Titrate Fi O2 to the lowest needed to keep Sats > 92% - Keep HOB elevated 30 degrees, oral care, aspiration precautions GI: #Hyperbilirubinemia #Elevated alk phos. improving - 2/2 congestive hepatopathy iso HF exacerbation - CTM CMP daily #Constipation - Inc miralax to BID, start senna qd - If no BM by today and KUB normal, will administer enema today Nutrition: tube feeds started CTM BM GI prophyalxis: PPI Renal: #Hypokalemia #Hypervolemic hyponatremia, resolved - Pt hyperkalemic on arrival, shifted with insulin + dextrose and started on lokelma - Noted to be HypoNa, though baseline may be close to 130-132 - Likely hypervolemic hyponatremia iso cardiogenic shock and ADHF PLAN: - Continue diuresis with bumex as above - Replete other lytes as needed - RFP BID Electrolytes: Monitor every 6 hours and replace K if <4, Mg if <2, Phos if <2 Endocrine: #IDDM #Obesity - per notes from 04/19, home regimen is 17U lantus in AM, 12U TID AC + slide 0-10U - Noted to have hypoglycemic episode on - BG has been ranging 220-300s on 05/20 PLAN: - Cont SSI 0-12U q4hrs, accuchecks q4hrs - Cont lantus 5U qhs - Nutrition following, will need to switch dosing when tolerating po intake Monitor accuchecks every 4 hours and use sliding scale to keep glucose between 140 - 180 #Hypothyroidism - Cont home levothyroxine #Uremia - BUN increasing , will ctm RFP I.D.: #Hypothermia #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 - Pt on cefadroxil 100mg BID for chronic ppx - TTE does not show any vegetations, though noted to have L atrial mass on CCTA 07/2024 - Became hypothermic on 05/17 - Infectious w/u negative so far (CXR, UA, Bcx) - 5d course cefepime finished on 05/22 PLAN: - Resume home cefadroxil Ellison culture if Tmax > 100.4 Heme/Onc: PARTH Transfusion Protocol: Hb < 7, Plt < 10 Code Status: Full Code Lines: Peripheral IV Left Antecubital (Active) Placement Date/Time: 05/15/25 1451 Size (Gauge): 20 G Orientation: Left Location: Antecubital Number of days: 1 Peripheral IV Anterior;Right (Active) Placement Date/Time: 05/16/252199 Size (Gauge): 20 G Orientation: Anterior;Right Number of days: 0 Peripheral IV Right Antecubital (Active) Placement Date/Time: 05/16/252299 Size (Gauge): 20 G Orientation: Right Location: Antecubital Number of days: 0 Enteral - Nasal/Oral Naso-gastric Nostril/Nare;Left (Active) Placement Date/Time: 05/17/25 0700 Type: Naso-gastric Tube Location: Nostril/Nare;Left Internal Length (cm): 60 Number of days: 0 ETT Endotracheal Tube Cuffed-inflated 7.5 MM (Active) Placement Date/Time: 05/17/25 0327 Person who placed: Michael JIMENES Mask Ventilation: easy mask Induction: Rapid Sequence Device: Endotracheal Tube Location: Oral Tube Type: Cuffed-inflated Tube size (MM): 7.5 MM Depth of insertion: 24 CM Measur... Number of days: 0 Arterial Line (Active) Placement Date/Time: 05/17/25 1100 Placed by: Wendi Scruggs Orientation: Right Site: radial Site Prep: Chlorhexidine Local Anesthetic Used?: No Securement Method: Sutured Procedure Tolerance: Well Number of days: 0 Midline 05/17/25 0154 Right Brachial Vein (Active) Placement Date/Time: 05/17/25 0154 IV Catheter Size: (c) Other (Comments) Orientation: Right Location: Brachial Vein Site Prep: Chlorhexidine Placement Verification: Ultrasound Number of days: 0 Urethral Catheter (Active) Placement Date/Time: 05/17/25 0249 Catheter Type : Double lumen/two-way;Non-latex Catheter Balloon Inflated With: 10 mL Number of days: 0 Prophylaxis: Aspiration precautions w/ HOB elevation by 30 degrees GI prophyalxis w/ pantoprazole VTE prophyalxis w/ SCDs, xarelto Diet: DIET NPO Except: NO EXCEPTIONS DIET TUBE FEEDING CONTINUOUS Activity: Activity as tolerated Disposition: ICU Monitoring The above assessment and plan will be discussed with the attending. This note is not final until attested by attending physician. Shavon Caldwell MD 05/25/2025 3:26 PM 05/17/2025 3:26 PM [1] 0.9% NaCl 3 mL Intracatheter q8h albuterol-ipratropium 3 mL Inhalation q4h WA bumetanide 1 mg Enteral Tube BID busPIRone 10 mg Enteral Tube BID cefadroxil 500 mg Oral BID cyanocobalamin 500 mcg Enteral Tube QDAY empagliflozin 10 mg Enteral Tube QDAY escitalopram 10 mg Oral QDAY guaiFENesin ER 12hr 600 mg Oral q12h insulin aspart 0-18 Units Subcutaneous q4h insulin glargine 5 Units Subcutaneous AT BEDTIME levothyroxine 75 mcg Enteral Tube QAM metoprolol tartrate IR 50 mg Enteral Tube q12h polyethylene glycol 3350 17 g Enteral Tube BID rivaroxaban 20 mg Enteral Tube QPM senna 17.2 mg Enteral Tube BID spironolactone 12.5 mg Oral QDAY vitamin D3 5,000 Units Oral QDAY [2] [3] SALINE LOCK, INSERT AND MAINTAIN AND 0.9% NaCl AND 0.9% NaCl acetaminophen albuterol HFA dextrose IV for hypoglycemia OR dextrose IV for hypoglycemia OR glucagon glucose (Diabetic Use) gel Cosigned by Jefry Arizmendi MD at 05/25/2025 3:38 PM CDT Associated attestation - Jefry Arizmendi MD - 05/25/2025 3:38 PM CDT ATTENDING PHYSICIAN NOTE Patient seen and examined. Objective data including vitals, laboratory results and pertinent imaging studies were independently reviewed by me. I confirm history, exam, assessment and plan in the resident's note. Date of service is the date of the resident's note. Jefry Arizmendi MD Business Unit Manager of Internal Medicine Director, Echo Lab [facility] * Nicole Johnson SLP - 05/25/2025 9:31 AM CDT [facility] Physical Medicine and Rehabilitation Bedside Swallow Assessment Patient: Loretta Penn Med Record Number: [id number] Date of : 1960 Age: [age] year old Problem List[1] Past Medical History[2] In addition to the 1:1 evaluation of the patient, additional eval time was spent completing the chart review prior to the assessment, completing the multidisciplinary plan of care and education plan post evaluation and communicating results of the eval to other treatment team members. PPE: PPE worn by staff: gloves PPE worn by patient: gown - patient, clean Impressions: Pt seen at bedside for swallowing evaluation. Pt presents with mild to moderate pharyngeal dysphagia in presence of recent endotracheal intubation. Administered trials of ice chips, thinliquids, and puree. Pt demonstrated consistent wet coughing and expectorated thin liquids concerning for aspiration. Recommend patient remain NPO as she is a poor candidate for PO intake. Recommendations: Diet Liquids Recommendation: NPO Diet Solids Recommendation: NPO Recommended Form of Meds: Feeding Tube;With puree;Crushed Recommended Tests/Consults: Recommendations: Dysphagia Treatment Discharge Recommendations: Ongoing SUBJECTIVE: Patient Goals:Patient not verbal this date Pain Assessment: 0 OBJECTIVE: Level of Consciousness: alert Orientation Level: unable to obtain Positioning: Upright in bed Respiratory Status: nasal cannula: 2lpm Oral/Motor: Oral Hygiene : Within Functional Limits Labial/Facial: Within Functional Limits Tongue: Within Functional Limits Vocal Quality: Within Functional Limits Velopharyngeal Status: Within Functional Limits Oral Motor Coordination: Within Functional Limits Swallow Trials: Ice chips: Presentation: Spoon-Assisted Oral: Within Functional Limits Pharyngeal: Within Functional LImits Thin Liquid: Presentation: Straw-Assisted Oral: Increased Anterior to Posterior Transit Pharyngeal: Cough - Immediate (expectorated) Puree: Presentation: Spoon-Assisted Oral: Within Functional Limits Pharyngeal: Within Functional LImits Assessment: Risk For Aspiration: Moderate Primary Diagnostic Impression - Oral: Mild;Dysphagia Primary Diagnostic Impression - Pharyngeal: Moderate;Dysphagia Education/Interventions: While performing THEATRE PROGRAM DIRECTOR, Patient and Caregiver was instructed in: results of swallow evaluation and clinical signs of aspiration . Patient and Caregiver demonstrated Fair understanding of instructions given. Nurse contacted regarding results of swallow evaluation and recommendations. INFORMED CONSENT TO TREATMENT: Plan of care including recommended therapy, goals and frequency, discussed with patient who understands and agrees to proceed. Short Term Goals Patient will understand clinical signs of aspiration and aspiration precautions. Clerk Cashier Goal (s): Patient to be independent/baseline with functional mobility and self care and be able to safely discharge to prior level of care. Plan: THEATRE PROGRAM DIRECTOR to follow for ongoing swallow evaluation [1] Patient Active Problem List: Hyperkalemia Hyperbilirubinemia Hyponatremia Transaminitis Elevated alkaline phosphatase level Acute on chronic congestive heart failure, unspecified heart failure type (HCC) Obesity with serious comorbidity, unspecified class, unspecified obesity type Demand ischemia (HCC) History of endocarditis TBI (traumatic brain injury) (HCC) Hypothyroidism Atrial fibrillation (HCC) Prolonged Q-T interval on ECG Pericardial effusion (HCC) Acute kidney injury Type 2 diabetes mellitus, without long-term current use of insulin (HCC) Shortness of breath Other shock (HCC) [2] Past Medical History: Diagnosis Date Arrhythmia Cataracts, bilateral Depression Diabetes mellitus (HCC) Hypertension Overactive bladder * Maryann Nielsen DO - 05/25/2025 6:51 AM CDT Patient remains on NC post extubation. Not on gtts. Continue nebulizer therapies and aggressive pulm toilet. MICU to sign off. Care per primary (cardiology). Please call if patient develops ICU needs. --Maryann Nielsen DO MICU 4 * Hina Prajapati APRN-ORNAMENTAL MACHINE OPERATOR - 05/24/2025 5:15 PM CDT Palliative Medicine Progress Note Loretta Penn Age: [age] year old Date of : 1960 Date of Admission: 05/15/2025 Summary 64 y/o F with significnat PMH of HFrEF, AICD removal 07/2024 2/2 infected ICD lead, severe TR, MSSATV endocarditis on cefedroxil, a fib on xarelto, intellecutal disability 2/2 TBI, HTN, DM 2, hypothyropidism. Per chart review, patient follows with [facility] primarily. Of note, patient recently admitted at [facility] forHF exacerbation in 02/2025; per chart review, patient transferred to [facility] from OSH for othorpnea + fluid retention for 2-3 weeks. Pt Lasix increased, added spironolactone but had no improvement. BNP elevated to 2800s, at that time, started on IV bumex. EKG showing afib. Echo showing EF 40- 45%. GDMT was optimized to Entresto 24-26 (0.5 tab) BID, metoprolol XR 100 mg daily, spironolactone 25 mg daily, and Jardiance 10 mg daily. Pt presented to [facility] on 05/15 with edema. Labs notable for hyponatremia 122, K of 6.1, INR 2.9, AST 59, Cr 1.48, Tbili 7.0, BNP 2200. CT CAP with moderate pericardial effusion, right heart dysfunction,body wall edema, pulmonary edema. Cardiology team spoke to pt's sister mounika. Per sister, patient can normally get agitated at home, usually over her food. Sister is asking whether we can fix her after he volume status is controlled. Appears to have poor understanding into current situation as family admits that patient will do whatever Loretta wants to do, including eating high salt foods that will worsen her HF exacerbations. Discussed possible need for sedation if patient is not amenable to lab draws, given that per nursing 4 people had to hold patient to get BP taken. Family does not want her to get sedated, but understands the need for it. Pls confirm with family before proceeding with any IV/sedation measures. Pn 05/17, patient with change in mental status, obtunded. Concern for airway protection. Pt intubated, moved to ICU. Palliative care was consulted to assist with complex medical decision making. On [facility] on 05/20, pt noted to have LA thrombus, DCCV was aborted. Interval update: Pt extubated this morning (05/24) to NE. Assessment Pt visited at bedside. Pt's sisters Mounika and Dilia present at time of visit. Patient was awake and alert, slightly agitated. She was on 5 L nasal cannula at time of visit. NG tube still in place.Patient's RN trialing bedside swallow eval. Patient's voice difficult to hear. Able to follow some commands. Spoke to patient's sisters away from bedside. See ACP section of note below for details. Summary of Recommendations: Goals of Care: Patient's family hopeful that she will remain extubated, and progress towards the goal of coming home some day. If patient were to require re-intubation, family would like her to be intubated. However, if she were unable to be extubated again, they does not believe that she would tolerate having a tracheostomy. Patient's family wishes for patient to remain full code at this time in the event of cardiac arrest. Current code status: Full Code Decision maker: Pt does not have advance directive on file. Patient's sisters endorsed that Mounika is primary POA, and Dilia is secondary POA. I encouraged them to bring this paperwork in next timethey visit. Decision making capacity: At the time of exam, patient deemed NOT decisional by this practitioner today as the following are NOT true: 1) Patient appears to understand the decision options surrounding their condition. 2) Patient understands the risk and benefits of each option. 3) Patient has made a clear decision and can explain the reasoning for that decision 4) Patient has been consistent with medical providers and family about the decision Recommendations/Plan: Plan related to GOC: -Continue current restorative treatment without limitations -Palliative care to continue to follow. 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 Per chart review, patient follows with [facility] primarily. Of note, patient recently admitted at [facility] forHF exacerbation in 02/2025; per chart review, patient transferred to [facility] from OSH for othorpnea + fluid retention for 2-3 weeks. Pt Lasix increased, added spironolactone but had no improvement. BNP elevated to 2800s, at that time, started on IV bumex. EKG showing afib. Echo showing EF 40- 45%. GDMT was optimized to Entresto 24-26 (0.5 tab) BID, metoprolol XR 100 mg daily, spironolactone 25 mg daily, and Jardiance 10 mg daily. Pt presented to [facility] on 05/15 with edema. Labs notable for hyponatremia 122, K of 6.1, INR 2.9, AST 59, Cr 1.48, Tbili 7.0, BNP 2200. CT CAP with moderate pericardial effusion, right heart dysfunction,body wall edema, pulmonary edema. Cardiology team spoke to pt's sister mounika. Per sister, patient can normally get agitated at home, usually over her food. Sister is asking whether we can fix her after he volume status is controlled. Appears to have poor understanding into current situation as family admits that patient will do whatever Loretta wants to do, including eating high salt foods that will worsen her HF exacerbations. Discussed possible need for sedation if patient is not amenable to lab draws, given that per nursing 4 people had to hold patient to get BP taken. Family does not want her to get sedated, but understands the need for it. Pls confirm with family before proceeding with any IV/sedation measures. Pn 8/, patient with change in mental status, obtunded. Concern for airway protection. Pt intubated, moved to ICU. Palliative care was consulted to assist with complex medical decision making. Problem list: Active Problems: Hyperkalemia Hyperbilirubinemia Hyponatremia Transaminitis Elevated alkaline phosphatase level Acute on chronic congestive heart failure, unspecified heart failure type (HCC) Obesity with serious comorbidity, unspecified class, unspecified obesity type Demand ischemia (HCC) History of endocarditis TBI (traumatic brain injury) (HCC) Hypothyroidism Atrial fibrillation (HCC) Prolonged Q-T interval on ECG Pericardial effusion (HCC) Acute kidney injury Type 2 diabetes mellitus, without long-term current use of insulin (HCC) Shortness of breath Other shock (HCC) Advance Care Planning Goals of Care Current active code status Full Code Discussion These active diagnoses listed above indicate significant risk on the patient's health, which necessitates a focused discussion with the family regarding future health care decision making. The discussion consisted of reviewing with the family the current diagnosis, treatment options, misconceptions, natural history of the patient's diagnosis, and prognosis. Patient's values and short/long-term goals have been discussed. We discussed planning for the unexpected and end of life topics, including,but not limited to, CPR and advanced cardiac life support, intubation and mechanical ventilation, trach, and code status. Time was provided for questions. Patient's sister Dilia endorsed a fear that talking about possible events such as re-intubation or cardiac resuscitation could lead to negative energy in the universe that could lead to these events happening. However, she was open to discussing these possibilities today in a hypothetical context. We celebrated the fact that patient was able to be successfully extubated this morning. However, wediscussed the hypothetical possibility of patient requiring re-intubation for variety of reasons. Idiscussed that though it is possible that she could be extubated again if reintubated, it is also possible that she would be too weak to be successfully extubated. We discussed that the options at that point would be tracheostomy versus comfort care. Patient's family endorsed that they do not thinkshe would tolerate a tracheostomy. They think that she would pull it out, and that she would be very upset that she could not eat by mouth initially. Though the family does not believe that she wouldwant tracheostomy, they do believe that patient should be reintubated if need be, with the hope that she could be extubated again. We then discussed the possibility of cardiac arrest though again reiterated that this possibility is hypothetical. I discussed the risks and benefits of cardiac resuscitation including that it is possible that patient could suffer brain damage, or damage to her other organs after a resuscitation attempt. I discussed that after resuscitation attempt, it is possible that patient would never be ableto return to her baseline. For now, patient's family would like patient to remain full code. Patient's family believes that she would want to return home one day. I discussed that at this point, patient has several barriers to discharge, and also has a long road ahead of her to recovery withpossibility for setbacks. Conversation included: Myself, pt's sister Mounika, and pt's sister Dilia Conversation location: away from bedside as pt not decisional Goals of Care: Patient's family hopeful that she will remain extubated, and progress towards the goal of coming home some day. If patient were to require re-intubation, family would like her to be intubated. However, if she were unable to be extubated again, they do not believe that she would tolerate having a tracheostomy. Patient's family wishes for patient to remain full code at this time in the event of cardiac arrest. Code Status: Full Reason for ACP: Complex decision making Reason for new ACP conversation: Clarification of code status Advance Directive / Surrogate Decision Maker (relationship): Pt does not have advance directive on file. Patient's sisters endorsed that Mounika is primary POA, and Dilia is secondary POA. I encouraged them to bring this paperwork in next time they visit. Discharge Planning: TBD Participants listed above participated voluntarily. Review of Systems: Positive findings are in bold TOI 2/2 AMS Prior History Patient Active Problem List Diagnosis Date Noted Hyperkalemia 05/15/2025 Priority: Not Prioritized Hyperbilirubinemia 05/15/2025 Priority: Not Prioritized Hyponatremia 05/15/2025 Priority: Not Prioritized Transaminitis 05/15/2025 Priority: Not Prioritized Elevated alkaline phosphatase level 05/15/2025 Priority: Not Prioritized Acute on chronic congestive heart failure, unspecified heart failure type ([facility]) 05/15/2025 Priority: Not Prioritized Obesity with serious comorbidity, unspecified class, unspecified obesity type 05/15/2025 Priority: Not Prioritized Demand ischemia ([facility]) 05/15/2025 Priority: Not Prioritized History of endocarditis 05/15/2025 Priority: Not Prioritized TBI (traumatic brain injury) ([facility]) 05/15/2025 Priority: Not Prioritized Hypothyroidism 05/15/2025 Priority: Not Prioritized Atrial fibrillation ([facility]) 05/15/2025 Priority: Not Prioritized Prolonged Q-T interval on ECG 05/15/2025 Priority: Not Prioritized Pericardial effusion ([facility]) 05/15/2025 Priority: Not Prioritized Acute kidney injury 05/15/2025 Priority: Not Prioritized Type 2 diabetes mellitus, without long-term current use of insulin ([facility]) 05/15/2025 Priority: Not Prioritized Shortness of breath 05/15/2025 Other shock ([facility]) 05/15/2025 Past Surgical History[1] Social History Social History Social History Narrative Not on file Family History Family History[2] Allergies[3] Performance Score/Scales prior to admission: Palliative Performance Scale (PPS) = 70 % Current Inpatient Medications Scheduled: 0.9% NaCl injection 3 mL, Intracatheter, q8h albuterol-ipratropium (Duo-Neb) nebulizer solution 3 mL, Inhalation, q4h artificial tears ophthalmic ointment, Each Eye, q8h bumetanide (Bumex) tablet 1 mg, Enteral Tube, BID cefadroxil (Duricef) capsule 500 mg, Oral, BID chlorhexidine (Peridex) 0.12 % oral solution 15 mL, Mouth/Throat, BID guaiFENesin (Robitussin) solution 10 mL, Enteral Tube, q6h insulin aspart (NovoLOG) pen 0-18 Units, Subcutaneous, q4h insulin glargine (Lantus) pen 5 Units, Subcutaneous, AT BEDTIME metoprolol tartrate IR (Lopressor) tablet 50 mg, Enteral Tube, q12h polyethylene glycol 3350 (Miralax) packet 17 g, Enteral Tube, BID racepinephrine (Vaponefrin) 2.25 % nebulizer solution 0.25 mL, Nebulization, Once rivaroxaban (Xarelto) tablet 20 mg, Enteral Tube, QPM senna (Senokot) tablet 17.2 mg, Enteral Tube, BID [COMPLETED] potassium chloride (Klor-Con) packet 40 mEq, Oral, Once [Held by Provider] busPIRone (Buspar) tablet 10 mg, Enteral Tube, BID [Held by Provider] escitalopram (Lexapro) tablet 10 mg, Oral, QDAY [Held by Provider] spironolactone (Aldactone) tablet 12.5 mg, Oral, QDAY [START ON 05/25/2025] cyanocobalamin (Vitamin B-12) tablet 500 mcg, Enteral Tube, QDAY [START ON 05/25/2025] empagliflozin (Jardiance) tablet 10 mg, Enteral Tube, QDAY [START ON 05/25/2025] levothyroxine (Synthroid) tablet 75 mcg, Enteral Tube, QAM [START ON 05/25/2025] vitamin D3 (Cholecalciferol) tablet 5,000 Units, Oral, QDAY Continuous: PRN: Or Or 0.9% NaCl injection 1-10 mL, Intracatheter, PRN acetaminophen (Tylenol) tablet 500 mg, Oral, q6h PRN albuterol HFA (Proventil; Ventolin; Proair) 108 (90 Base) MCG/ACT inhaler 2 puff, Inhalation, q6h PRN dextrose IV 12.5 g, Intravenous, PRN dextrose IV 25 g, Intravenous, PRN glucagon (Glucagen) injection 1 mg, Subcutaneous, PRN glucose (Diabetic Use) oral gel, Oral, PRN Physical Exam Vitals: 05/24/25 1200 05/24/25 1300 05/24/25 1400 05/24/25 1605 BP: 111/82 122/70 122/88 Pulse: (!) 111 (!) 112 109 98 Resp: (!) 35 (!) 34 29 29 Temp: 98.9 ??F (37.2 ??C) SpO2: 96% 95% 95% 96% Weight: Height: Positive findings are in bold Exam: awake, alert, mildly agitated Resp: mild audible upper airway secretions CV: a fib on monitor Ext: edema BLE Skin: no ulcers callous or maceration Neuro: awake, confused Muscskel: no synovitis in knees ankles, wrists or hands Labs I have personally reviewed and interpreted lab results CBC: Recent Labs Component Name 05/24/25526 WBC 5.7 HGB 12.6 HCT 36.9 BMP: Recent Labs Component Name 05/24/25526 POTASSIUM 4.1 NA 142 CL 103 CO2 28 CREATININE 0.93 BUN 41* CALCIUM 9.1 PHOS 4.3 MAGNESIUM 2.3 LFT: Recent Labs Component Name 05/24/2552605/22/25 0415 05/21/25 1905 PROT - - 5.7* AST - - 43* ALT - - 19 ALKPHOS - - 230* TBILI - - 8.6* ALB 2.0* - 2.0* - = values in this interval not displayed. Recent Labs Component Name 05/24/25526 CALCIUM 9.1 PHOS 4.3 MAGNESIUM 2.3 COAGULATION: Recent Labs Component Name 05/15/25 1454 PT 29.5* INR 2.9 THYROID:No results for input(s): TSH, T3, T4 in the last 61670 hours. CARDIAC:No results for input(s): TROPONIN in the last 90405 hours. LIPASE: Recent Labs Component Name 05/15/25 1454 LIPASE 7* Microbiology Results (past 5 days)-personally reviewed Recent Results (from the past 124 hours) CULTURE SPUTUM+GRAM STAIN Collection Time: 05/19/25 4:20 PM Specimen: Sputum; Microbiology Result Value Ref Range Culture Light normal oropharyngeal alisa Gram Stain Moderate Gram-negative bacilli Gram Stain Moderate Gram-positive cocci Gram Stain Light Yeast Gram Stain >= 25 per low power field Polymorphonuclear cells Gram Stain <10 per low power field Squamous epithelial cells Radiology Results - Past 24 Hours I have personally reviewed radiology results CT Head Wo Contrast Result Date: 05/17/2025 IMPRESSION: 1.No acute intracranial hemorrhage, midline shift, or mass effect. 2.Left side the sinusitis. The left nasogastric tube is in place. > Dictated by Claire Ortiz MD, (development vice president). > Dictated by Instrument Technologist I, Tripp Pablo MD have personally reviewed and interpretedthis examination/study. > Interpreting Provider: Tripp Pablo MD on 05/17/2025 9:24 AM XR Abdomen Kub Portable Result Date: 05/17/2025 IMPRESSION: Enteric tube terminates in the gastric body. > Interpreting Provider: Felipe Munoz MD on 05/17/2025 9:[address] Chest Pe W Abd Pelvis W Cont Result Date: 05/15/2025 Impression: 1.No evidence of acute pulmonary embolism. There is a retained metallic wire within oneof the right inferior lobe pulmonary arteries, likely iatrogenic. 2.Cardiomegaly and a moderate-sized pericardial effusion. Reflux of contrast into the hepatic veins suggesting right heart dysfunction. 3.Interstitial pulmonary edema, small volume ascites and diffuse body wall edema suggesting hypervolemia. Preliminary findings were discussed with the patient's care provider, Dr Sil Cordero by Dr. Tom Dinh via telephone at 05/15/2025 8:24 PM with readback comprehension and verification. > Dictated by Tom Dinh DO, (development vice president). > Dictated by Instrument Technologist I, Ann-Marie Campa MD have personally reviewed and interpreted this examination/study. > Interpreting Provider: Ann-Marie Campa MD on 05/15/2025 10:20 PM XR CHEST 2VW Result Date: 05/15/2025 IMPRESSION: A linear wire-like density projects over the right perihilar region. Cardiomegaly. Likely enlarged pulmonary arteries. Mild interstitial edema. Trace pleural effusions. No pneumothorax. > Interpreting Provider: Felipe Munoz MD on 05/15/2025 3:03 PM Results for orders placed or performed during the hospital encounter of 05/15/25 EKG 12-LEAD Result Value Ref Range Ventricular Rate 106 BPM QRS Duration ms 92 ms Q-T Interval ms 454 ms QTC Calculation (Bezet) 603 ms Calculated R Duvall 0 degrees Calculated T Duvall -31 degrees Interpretation EKG SINUS TACHYCARDIA Hyperkalemia PROLONGED QT ABNORMAL ECG NO PREVIOUS ECGS AVAILABLE Confirmed by DAREK PARADA MD ([id number]) on 05/21/2025 8:34:24 AM EKG 12-LEAD Result Value Ref Range Ventricular Rate 79 BPM QRS Duration ms 102 ms Q-T Interval ms 434 ms QTC Calculation (Bezet) 497 ms Calculated R Duvall 123 degrees Calculated T Duvall -118 degrees Interpretation EKG ATRIAL FIBRILLATION LOW VOLTAGE QRS ANTEROLATERAL INFARCT , AGE UNDETERMINED ABNORMAL ECG WHEN COMPARED WITH ECG OF 15-MAY-2025 14:20, QRS DURATION HAS DECREASED Confirmed by DAREK PARADA MD ([id number]) on 05/21/2025 8:35:06 AM EKG 12-Lead Result Value Ref Range Ventricular Rate 103 BPM QRS Duration ms 86 ms Q-T Interval ms 198 ms QTC Calculation (Bezet) 259 ms Calculated R Duvall 139 degrees Calculated T Duvall -58 degrees Interpretation EKG ATRIAL FIBRILLATION WITH RAPID VENTRICULAR RESPONSE WITH PREMATURE VENTRICULAR OR ABERRANTLY CONDUCTED COMPLEXES POSSIBLE RIGHT VENTRICULAR HYPERTROPHY ANTEROLATERAL INFARCT , AGE UNDETERMINED ABNORMAL ECG WHEN COMPARED WITH ECG OF 16-MAY-2025 04:07 NO SIGNIFICANT CHANGE WAS FOUND Confirmed by DAREK PARADA MD ([id number]) on 05/21/2025 8:36:40 AM EKG 12-Lead Result Value Ref Range Ventricular Rate 134 BPM QRS Duration ms 114 ms Q-T Interval ms 260 ms QTC Calculation (Bezet) 388 ms Calculated R Duvall 99 degrees Calculated T Duvall -90 degrees Interpretation EKG ATRIAL FIBRILLATION WITH RAPID VENTRICULAR RESPONSE WITH PREMATURE VENTRICULAR OR ABERRANTLY CONDUCTED COMPLEXES RIGHTWARD AXIS LOW VOLTAGE QRS CANNOT RULE OUT ANTEROSEPTAL INFARCT , AGE UNDETERMINED ABNORMAL ECG WHEN COMPARED WITH ECG OF 17-MAY-2025 18:14 NO SIGNIFICANT CHANGE WAS FOUND Confirmed by DAREK PARADA MD ([id number]) on 05/21/2025 8:37:09 AM EKG 12-Lead Result Value Ref Range Ventricular Rate 125 BPM QRS Duration ms 116 ms Q-T Interval ms 338 ms QTC Calculation (Bezet) 487 ms Calculated R Duvall 100 degrees Calculated T Duvall -84 degrees Interpretation EKG ATRIAL FIBRILLATION WITH RAPID VENTRICULAR RESPONSE LOW VOLTAGE QRS ANTEROLATERAL INFARCT , AGE UNDETERMINED ABNORMAL ECG WHEN COMPARED WITH ECG OF 20-MAY-2025 09:25 NO SIGNIFICANT CHANGE WAS FOUND Confirmed by DAREK PARADA MD ([id number]) on 05/21/2025 8:38:24 AM Thank you for this consult. Palliative will continue to follow but please contact us with additional or new questions. Recommendations were discussed with the team-cardiology ICU team and MICU 4 team Time was spent performing chart preparation, review of data, and visit with the patient at bedside,discussion with involved teams, discussion with family, and documenting. Additional 37 minutes spent on acp conversation KYA Reyes 05/24/2025 5:15 PM Palliative Care Nurse Pracitioner [1] Past Surgical History: Procedure Laterality Date Appendectomy Cholecystectomy [2] No family history on file. [3] Allergies Allergen Reactions Sulfa Drugs Urticaria * Jocelyn Rajput RN - 05/24/2025 4:04 PM CDT Care Coordination Progress Note Expected Discharge Date: 05/27/2025 Discharge Plan: Pt not medically clear at this time. Pt extubated this AM, now on 5L O2 NC. Pt remains being closely monitored. CM will continue to follow for DC needs. Family Support (Name and Phone): Extended Emergency Contact Information Primary Emergency Contact: DwayneMounika Address: [address] [place] [address] Mobile Relation: Sister Secondary Emergency Contact: Laura Mcginnis (A) Mobile Relation: Sister Transportation at Discharge: Family: READMISSION RISK SCORE is 17 at 4:04 PM 05/24/2025.: Name: Jcoelyn Rajput RN * Shavon Caldwell MD - 05/24/2025 11:35 AM CDT CARDIOLOGY SERVICE CCU PROGRESS NOTE Admission Date: 05/15/2025 Patient: Loretta Penn (64 year old female) Code Status: Full Code Interval History: Precedex weaned overnight; pt following commands, extubated this morning to 5L NC Unable to tolerate thin liquids on nursing eval but ok with ice. THEATRE PROGRAM DIRECTOR eval ordered. Will continue NGat this time until seen by speech Updated family via phone with palliative POWDER HAND this morning. They will be coming to bedside this afternoon, will plan to reconvene in person Pulm toilet ordered Enema not given yesterday, discussed with nursing to administer today. No BM since intubation 6 days ago History of Present Illness: Loretta Penn is a 64 year-old female with past medical history significant for HFrEF (EF 25% 02/2025), severe TR, 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 Pt was initially admitted to medicine service and cardiology consulted regarding severity of heart failure and other valvular issues. On admission, labs significant for BNP 2209, trop 24-->23, Na 122, K 6.1, Cr 1.48,alk phos 365, bili 7.7. Pt was shifted with insulin + dextrose, given patiromer and. She was started on IV furosemide TID for acute HFrEF. EKG showing Qtc prolongation. Pt noted to be hypoglycemic in40s on 05/16 AM, hypoglycemia protocol initiated. Patient transferred to primary cardiology service on 05/16 d/t concern that patient may develop cardiogenic shock. On 05/17, decision was made to proceed with light sedation in order to be able to provide meds to pt given that she was not taking any orals d/t sedation; additionally Na in 121-122 range and pt would need more frequent lab draws for mgmt. On transfer to ICU, pt increasing agitated and given IV ativan. Then noted to be obtunded, intubated for airway protection. She was given hypertonic saline 2x, and was also briefly on levophed for BP support. ICU team c[facility]. Started on nitroprusside drip, but then discontinued d/t no proper BP measurements. Palliative consulted regarding family's understanding of medical conditions and difficult decision making. A line and central line placed. Sedation was discontinued on 05/19 AM, pt responding to name but not following commands. Noted to have afib with RVR overnight, proceeded with CHANCE DCCV. On CHANCE on 05/20, pt noted to have LA thrombus, DCCV was aborted. Lactic increasing on 05/20, given 250cc bolus for c/f hypovolemic shock. Patient unable to extubate d/t inability to follow commands despite weaning sedation between 05/21-05/22. Medical Hx: Per chart review, patient follows with [facility] primarily. Of note, patient recently admitted at [facility] forHF exacerbation in 02/2025; per chart review, patient was previously admitted previously at [facility] for MAYS and othorpnea + fluid retention for 2-3 weeks and then transferred to [facility]. [facility] radar systems engineer Dr. Flores increased her lasix from 40qd to BID, added spironolactone but had no improvement. BNPelevated to 2800s, at that time, started on IV bumex. EKG showing afib. [facility] to Entresto 24-26 (0.5 tab) BID, metoprolol XR 100 mg daily, spironolactone 25 mg daily, and Jardiance 10 mg daily. Valve team was consulted during this hospitalization, recommending clinic follow-up without transcatheter tricuspid valve interventions since patient is a poor candidate due to chronic tricuspid valve endocarditis and severe non-ischemic cardiomyopathy with LVEF 25%. Current Medications: Scheduled: Medications[1] Continuous: Medications[2] PRN: Medications[3] Vital Signs: Temp: [97.1 ??F (36.2 ??C)-99 ??F (37.2 ??C)] 99 ??F (37.2 ??C) Pulse: [60-108] 94 Resp: [10-48] 14 Arterial Line BP #1: (86-119)/(43-64) 100/49 O2 %: [40 %] 40 % Physical Exam: General: Intubated and sedated, no acute distress Head: normocephalic, atraumatic Eyes: conjunctivae clear, extraocular muscles intact Mouth/Throat: ETT in place CV: regular rate and rhythm, no murmurs appreciated Resp: upper airway sounds, thick secretions. no wheezes or crackles heard Abd: soft, nontender, nondistended, normoactive bowel sounds Extremities: no lower extremity edema, no cyanosis Skin: BLE pitting edema 2+ Neuro: moving all extremities well, no focal deficits Lab Results: Labs have been personally reviewed and are remarkable for the following: CBC: Recent Labs Component Name 05/24/25 0527 05/23/25 0326 05/22/25 0415 WBC 5.7 5.8 7.6 HGB 12.6 12.7 13.4 HCT 36.9 36.3 38.8 MCV 97.6 94.0 96.3 Coagulation Panel: Recent Labs Component Name 05/15/25 1454 PT 29.5* INR 2.9 BMP: Recent Labs Component Name 08/52605/23/25 1609 05/23/25 0326 NA 142 141 138 POTASSIUM 4.1 3.6 3.3* CL 103 104 103 CO2 28 28 28 BUN 41* 47* 44* CREATININE 0.93 0.98* 0.98* CALCIUM 9.1 8.6 8.8 Recent Labs Component Name 05/24/25 0527 05/23/25 0326 05/22/25 1604 MAGNESIUM 2.3 2.4 2.7* Recent Labs Component Name 05/24/25 0505/23/25 1609 05/23/25 0326 PHOS 4.3 6.3* 2.1* Hepatic Panel: Recent Labs Component Name 05/24/2552605/23/25 1609 05/23/25 0326 05/22/25 0415 05/21/25 1905 05/21/25 16005/21/25 0329 05/20/25 1646 05/20/25 0845 05/18/25 0933 05/18/25 0305 05/15/25 22505/15/252019 AST - - - - 43* - 37* - 37* - - - - ALT - - - - 19 - - - - - ALKPHOS - - - - 230* - 254* - 259* - - - - TBILI - - - - 8.6* - 9.9* - 9.4* - - - 7.0* DBILI - - - - - - - - - - 4.4* - 4.9* IBILI - - - - - - - - - - - - 2.1 ALB 2.0* 1.9* 1.9* - 2.0* - 2.2* - 2.2* 2.2* - 2.6* - - - = values in this interval not displayed. ABG: Recent Labs Component Name 05/22/25 0554 05/22/2541405/21/25 190 PH 7.45 7.47* 7.45 7.52* PCO2 46* 44 49* PO2 85 68* 87 Amylase/Lipase: Invalid input(s): AMYL, LIPA Thyroid Studies: No results for input(s): TSH, T4 in the last 57991 hours. Cardiac Enzymes: No results for input(s): CKTOTAL, CKMB, TROPONINI in the last 20824 hours. Invalid input(s): CKMBINDEX Lipid Panel: No results for input(s): LDLCALC, HDL in the last 18282 hours. Microbiology: Microbiology Results (Displays last 21 days for this encounter ONLY) Procedure Component Value - Date/Time CULTURE SPUTUM+GRAM STAIN [[id number]] Collected: 05/19/25 1620 Lab Status: Final result Specimen: Microbiology from Sputum Updated: 05/21/25 0808 Culture Light normal oropharyngeal alisa Gram Stain Moderate Gram-negative bacilli Moderate Gram-positive cocci Light Yeast >= 25 per low power field Polymorphonuclear cells <10 per low power field Squamous epithelial cells CULTURE BLOOD [[id number]] (Normal) Collected: 05/17/25 1440 Lab Status: Final result Specimen: Blood Peripheral Updated: 05/22/25 193 Culture No growth day 5 MRSA PCR [[id number]] (Normal) Collected: 05/17/25 1440 Lab Status: Final result Specimen: Microbiology from Nasal Updated: 05/17/25 210 MRSA DNA by PCR Not detected Narrative: Methicillin-resistant Staphylococcus aureus (MRSA) DNA is not detected (presumed not colonized withMRSA). CULTURE BLOOD [[id number]] (Normal) Collected: 05/17/25 1436 Lab Status: Final result Specimen: Blood Peripheral Updated: 05/22/25 193 Culture No growth day 5 Imaging: CT Head Wo Contrast Result Date: 05/17/2025 IMPRESSION: 1.No acute intracranial hemorrhage, midline shift, or mass effect. 2.Left side the sinusitis. The left nasogastric tube is in place. > Dictated by Claire Ortiz MD, (development vice president). > Dictated by Instrument Technologist I, Tripp Pablo MD have personally reviewed and interpretedthis examination/study. > Interpreting Provider: Tripp Pablo MD on 05/17/2025 9:24 AM XR Abdomen Kub Portable Result Date: 05/17/2025 IMPRESSION: Enteric tube terminates in the gastric body. > Interpreting Provider: Felipe Munoz MD on 05/17/2025 9:[address] Chest Pe W Abd Pelvis W Cont Result Date: 05/15/2025 Impression: 1.No evidence of acute pulmonary embolism. There is a retained metallic wire within oneof the right inferior lobe pulmonary arteries, likely iatrogenic. 2.Cardiomegaly and a moderate-sized pericardial effusion. Reflux of contrast into the hepatic veins suggesting right heart dysfunction. 3.Interstitial pulmonary edema, small volume ascites and diffuse body wall edema suggesting hypervolemia. Preliminary findings were discussed with the patient's care provider, Dr Sil Cordero by Dr. Tom Dinh via telephone at 05/15/2025 8:24 PM with readback comprehension and verification. > Dictated by Tom Dinh DO, (development vice president). > Dictated by Instrument Technologist I, Ann-Marie Campa MD have personally reviewed and interpreted this examination/study. > Interpreting Provider: Ann-Marie Campa MD on 05/15/2025 10:20 PM XR CHEST 2VW Result Date: 05/15/2025 IMPRESSION: A linear wire-like density projects over the right perihilar region. Cardiomegaly. Likely enlarged pulmonary arteries. Mild interstitial edema. Trace pleural effusions. No pneumothorax. 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 Pt intubated d/t beingobtunded after ativan, will avoid benzos. Now extubated. Pending further GOC with family, and will work towards improving oral intake. THEATRE PROGRAM DIRECTOR eval ordered. Neurological #Acute encephalopathy, resolving #Agitation - Pt noted to be obtunded at 4AM on 05/17, was given ativan earlier In the night for agitation - EEG with generalized slowing - sedation weaned off on M - CT head 05/20 - no acute abnormalities - At baseline, pt responds to her name and is able to express what she wants/doesn't want per sister. Has very limited understanding of her medical conditions iso TBI; sisters administer her meds, and otherwise patient reportedly does ADLs. Very non compliant with cardiac diet at home, and has numerous admissions for HF exacerbations in past PLAN: - Discontinue precedex - AVOID BENZOS - Plan for enema today - Palliative consulted for decision making and complex family situation Sedation - titrate to RASS goal of 0 to -1 - Monitor mental status every hour and notify MD if any changes - Fall precautions, Seizure precautions, HOB elevated Cardiovascular: #Atrial fibrillation #Left atrial thrombus - Cont home xarelto, had not previously been getting due to agitation - RVR resolved after digoxin load - Unable to do DCCV d/t LA thrombus PLAN: - Cont xarelto - Metop tartrate 25mg BID; can switch to Toprol when able to tolerate po intake - Will need repeat CHANCE in 1 month (around 06/20) to reassess thrombus #Acute decompensated HF with reduced EF 25% #Peripheral edema in BLE - TTE done yesterday - Furosemide IV TID given on day of admission - metop and aldactone held on admission as pt not taking oral meds - Manas removed - Levo discontinued - diuresed with bumex 4mg TID earlier in ICU amdission PLAN: - Bumex 1mg po BID - Empagliflozin 10mg - Hold GDMT iso shock: holding spironactone, metop succ - Xavier anca for hypothermia #Severe TR - Pt prev seen by [facility] valve team who recommended outpt f/u for possible transcatheter TR eval PLAN: - Will discuss with structural; likely not to have inpt intervention but will need outpt f/u Hemodynamic monitoring - Titrate pressors to minimum amount to keep MAP goal of >60mmHg Pulmonary: #Acute hypoxemic respiratory failure, resolving - Pt had to be mechanically intubated on 88 AM for c/f airway protection PLAN: - Extubated today 05/24 - Pulmonary toilet - THEATRE PROGRAM DIRECTOR eval - Titrate Fi O2 to the lowest needed to keep Sats > 92% - Keep HOB elevated 30 degrees, oral care, aspiration precautions GI: #Hyperbilirubinemia #Elevated alk phos. improving - 2/2 congestive hepatopathy iso HF exacerbation - CTM CMP daily #Constipation - Inc miralax to BID, start senna qd - If no BM by today and KUB normal, will administer enema today Nutrition: tube feeds started CTM BM GI prophyalxis: PPI Renal: #Hypokalemia #Hypervolemic hyponatremia, resolved - Pt hyperkalemic on arrival, shifted with insulin + dextrose and started on lokelma - Noted to be HypoNa, though baseline may be close to 130-132 - Likely hypervolemic hyponatremia iso cardiogenic shock and ADHF PLAN: - Continue diuresis with bumex as above - Replete other lytes as needed - RFP BID Electrolytes: Monitor every 6 hours and replace K if <4, Mg if <2, Phos if <2 Endocrine: #IDDM #Obesity - per notes from 04/19, home regimen is 17U lantus in AM, 12U TID AC + slide 0-10U - Noted to have hypoglycemic episode on - BG has been ranging 220-300s on 05/20 PLAN: - Cont SSI 0-12U q4hrs, accuchecks q4hrs - Cont lantus 5U qhs - Nutrition following, will need to switch dosing when tolerating po intake Monitor accuchecks every 4 hours and use sliding scale to keep glucose between 140 - 180 #Hypothyroidism - Cont home levothyroxine #Uremia - BUN increasing , will ctm RFP I.D.: #Hypothermia #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 - Pt on cefadroxil 100mg BID for chronic ppx - TTE does not show any vegetations, though noted to have L atrial mass on CCTA 07/2024 - Became hypothermic on 05/17 - Infectious w/u negative so far (CXR, UA, Bcx) - 5d course cefepime finished on 05/22 PLAN: - Resume home cefadroxil Ellison culture if Tmax > 100.4 Heme/Onc: PARTH Transfusion Protocol: Hb < 7, Plt < 10 Code Status: Full Code Lines: Peripheral IV Left Antecubital (Active) Placement Date/Time: 05/15/25 1451 Size (Gauge): 20 G Orientation: Left Location: Antecubital Number of days: 1 Peripheral IV Anterior;Right (Active) Placement Date/Time: 05/16/252199 Size (Gauge): 20 G Orientation: Anterior;Right Number of days: 0 Peripheral IV Right Antecubital (Active) Placement Date/Time: 05/16/252299 Size (Gauge): 20 G Orientation: Right Location: Antecubital Number of days: 0 Enteral - Nasal/Oral Naso-gastric Nostril/Nare;Left (Active) Placement Date/Time: 05/17/25 0700 Type: Naso-gastric Tube Location: Nostril/Nare;Left Internal Length (cm): 60 Number of days: 0 ETT Endotracheal Tube Cuffed-inflated 7.5 MM (Active) Placement Date/Time: 05/17/25 0327 Person who placed: Michael JIMENES Mask Ventilation: easy mask Induction: Rapid Sequence Device: Endotracheal Tube Location: Oral Tube Type: Cuffed-inflated Tube size (MM): 7.5 MM Depth of insertion: 24 CM Measur... Number of days: 0 Arterial Line (Active) Placement Date/Time: 05/17/25 1100 Placed by: Wendi Scruggs Orientation: Right Site: radial Site Prep: Chlorhexidine Local Anesthetic Used?: No Securement Method: Sutured Procedure Tolerance: Well Number of days: 0 Midline 05/17/25 0154 Right Brachial Vein (Active) Placement Date/Time: 05/17/25 0154 IV Catheter Size: (c) Other (Comments) Orientation: Right Location: Brachial Vein Site Prep: Chlorhexidine Placement Verification: Ultrasound Number of days: 0 Urethral Catheter (Active) Placement Date/Time: 05/17/25 0249 Catheter Type : Double lumen/two-way;Non-latex Catheter Balloon Inflated With: 10 mL Number of days: 0 Prophylaxis: Aspiration precautions w/ HOB elevation by 30 degrees GI prophyalxis w/ pantoprazole VTE prophyalxis w/ SCDs, xarelto Diet: DIET NPO Except: NO EXCEPTIONS DIET TUBE FEEDING CONTINUOUS Activity: Activity as tolerated Disposition: ICU Monitoring The above assessment and plan will be discussed with the attending. This note is not final until attested by attending physician. Shavon Caldwell MD 05/24/2025 11:35 AM 05/17/2025 11:35 AM [1] 0.9% NaCl 3 mL Intracatheter q8h albuterol-ipratropium 3 mL Inhalation q4h artificial tears Each Eye q8h bumetanide 1 mg Enteral Tube BID [Held by Provider] busPIRone 10 mg Enteral Tube BID cefadroxil 500 mg Oral BID chlorhexidine 15 mL Mouth/Throat BID [START ON 05/25/2025] cyanocobalamin 500 mcg Enteral Tube QDAY [START ON 05/25/2025] empagliflozin 10 mg Enteral Tube QDAY [Held by Provider] escitalopram 10 mg Oral QDAY guaiFENesin 10 mL Enteral Tube q6h insulin aspart 0-18 Units Subcutaneous q4h insulin glargine 5 Units Subcutaneous AT BEDTIME [START ON 05/25/2025] levothyroxine 75 mcg Enteral Tube QAM metoprolol tartrate IR 50 mg Enteral Tube q12h polyethylene glycol 3350 17 g Enteral Tube BID rivaroxaban 20 mg Enteral Tube QPM senna 17.2 mg Enteral Tube BID [Held by Provider] spironolactone 12.5 mg Oral QDAY [START ON 05/25/2025] vitamin D3 5,000 Units Oral QDAY [2] [3] SALINE LOCK, INSERT AND MAINTAIN AND 0.9% NaCl AND 0.9% NaCl acetaminophen albuterol HFA dextrose IV for hypoglycemia OR dextrose IV for hypoglycemia OR glucagon glucose (Diabetic Use) gel Cosigned by Jefry Arizmendi MD at 05/24/2025 12:29 PM CDT Associated attestation - Jefry Arizmendi MD - 05/24/2025 12:29 PM CDT ATTENDING PHYSICIAN NOTE Patient seen and examined. Objective data including vitals, laboratory results and pertinent imaging studies were independently reviewed by me. I confirm history, exam, assessment and plan in the resident's note. Date of service is the date of the resident's note. Jefry Arizmendi MD Business Unit Manager of Internal Medicine Director, Echo Lab [facility] * Maryann Nielsen DO - 05/24/2025 8:44 AM CDT MICU consult [facility]: [facility] Day: 9 ADMITTING/PRIMARY TEAM:CARDIOLOGY MICU CONSULTED FOR: ICU assistance/vent management SUBJECTIVE BRIEF HOSPITAL COURSE: Ms. 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 Initially admitted to floor for HFrEF exacerbation, started on IV diuretics. Hospital course c/b hypoNa, hyperK, hypoglycemia; transferred to cards service 05/17 and later to ICU for persistent agitation and encephalopathy requiring intubation. INTERVAL HISTORY: Patient awake this AM. Anxious. Is able to follow commands in all extremities and lift head off thebed. Is able to cough on command. Has some secretions but very good cough. Decision made to extubate. OBJECTIVE Temp: [97.1 ??F (36.2 ??C)-99 ??F (37.2 ??C)] 99 ??F (37.2 ??C) Pulse: [60-108] 94 Resp: [10-48] 14 Arterial Line BP #1: (86-123)/(43-70) 100/49 O2 %: [40 %] 40 % I/O last 2 completed shifts: In: 1578.9 [I.V.:651.9; NG/GT:60] Out: 700 [Urine:700] General: Anxious and awake with tube in HEENT: NC AT Cardio: Sinus tach Resp: Scattered coarse breath sounds, good Vt on PSV 05/14. Abdomen: Soft ND Extremities: No edema Neuro: Awake, anxious, moving all extremities, following commands in all extremities, can lift headand cough on command ASSESSMENT & PLAN Critical care was necessary to treat or prevent life-threatening deterioration of the following -- Acute encephalopathy with respiratory failure requiring mechanical ventilation Hyperkalemia (POA: Yes) Hyperbilirubinemia (POA: Yes) Hyponatremia (POA: Yes) Transaminitis (POA: Yes) Elevated alkaline phosphatase level (POA: Yes) Acute on chronic congestive heart failure, unspecified heart failure type (HCC) (POA: Yes) Obesity with serious comorbidity, unspecified class, unspecified obesity type (POA: Yes) Demand ischemia (HCC) (POA: Yes) History of endocarditis (POA: Yes) TBI (traumatic brain injury) (HCC) (POA: Yes) Hypothyroidism (POA: Yes) Atrial fibrillation (HCC) (POA: Yes) Prolonged Q-T interval on ECG (POA: Yes) Pericardial effusion (HCC) (POA: Yes) Acute kidney injury (POA: Yes) Type 2 diabetes mellitus, without long-term current use of insulin (HCC) (POA: Yes) Shortness of breath (POA: Unknown) Other shock (HCC) (POA: Unknown) NEURO -- Keep off sedation. Advise against any benzos. -- Delirium ppx: Encourage normal sleep-wake cycle: lights on during day, lights off at night, frequent re-orientation, minimize sleep interruptions. Avoid sedating meds like benzos and antipsychotics -- Primary team holding home buspar and lexapro d/t encephalopathy and prolonged QTc. Would need repeat EKG for QTc before starting when encephalopathy improves. CV -- HFrEF in acute exacerbation; severe MR and TR. -- Afib on dig and xarelto. Primary service planned for DCCV 05/20 but aborted d/t clot. PULM -- Acute hypoxic respiratory failure in setting of encephalopathy, intubated 05/17. Awake off sedation, tolerating PSV 05/14, 40% w/ Vt in 500s. Able to follow all commands, cough, lift head off bed. Decision made to extubate. -- Guaifenesin for secretions. GI -- Bowel velia -- NPO w/ tube feeds RENAL -- Monitor renal function, lytes, I/O. Avoid nephrotoxic agents ENDO -- DM: Trend sugars, goal 140-180. Hypoglycemia protocol -- Hypothyroidism, continue home synthroid. ID -- Completed course of cefepime although all cx negative. Now back on home chronic abx ppx HEME/ONC -- Monitor H&H, transfuse for Hb < 7, plt < 10 (< 50 if bleeding, <30 if MCS) ETT since 05/17. A line since 05/17, consider d/c Midline since 05/17. I spent 32 minutes in full attendance with this critically-ill patient. Time spent was exclusive ofseparately billed procedures, treating other patients, and teaching time. Pt. is at high risk for complications and morbidity or mortality Pt. is critically ill with vital organ impairment or failure There is high probability of imminent or life threatening deterioration in the patient's condition Time involved in the performance of separately billable procedures, teaching, reviewing education material was not counted towards critical care time. Date of service: 05/24/2025 Maryann Nielsen DO Pulmonary/Critical Care Medicine * Philip Triana RCP - 05/24/2025 7:57 AM CDT Extubation procedure: Pt suctioned orally and via ETT. Cuff deflated and + cuff leak noted. Pt successfully extubated. No stridor noted. Breath sounds diminished bilaterally. Pt extubated to a 4L nc. * Hina Prajapati APRN-ORNAMENTAL MACHINE OPERATOR - 05/23/2025 3:44 PM CDT Palliative Medicine Progress Note Loretta Penn Age: [age] year old Date of : 1960 Date of Admission: 05/15/2025 Summary 64 y/o F with significnat PMH of HFrEF, AICD removal 07/2024 2/2 infected ICD lead, severe TR, MSSATV endocarditis on cefedroxil, a fib on xarelto, intellecutal disability 2/2 TBI, HTN, DM 2, hypothyropidism. Per chart review, patient follows with [facility] primarily. Of note, patient recently admitted at [facility] forHF exacerbation in 02/2025; per chart review, patient transferred to [facility] from [facility] for othorpnea + fluid retention for 2-3 weeks. Pt Lasix increased, added spironolactone but had no improvement. BNP elevated to 2800s, at that time, started on IV bumex. EKG showing afib. Echo showing EF 40- 45%. GDMT was optimized to Entresto 24-26 (0.5 tab) BID, metoprolol XR 100 mg daily, spironolactone 25 mg daily, and Jardiance 10 mg daily. Pt presented to [facility] on 05/15 with edema. Labs notable for hyponatremia 122, K of 6.1, INR 2.9, AST 59, Cr 1.48, Tbili 7.0, BNP 2200. CT CAP with moderate pericardial effusion, right heart dysfunction,body wall edema, pulmonary edema. Cardiology team spoke to pt's sister mounika. Per sister, patient can normally get agitated at home, usually over her food. Sister is asking whether we can fix her after he volume status is controlled. Appears to have poor understanding into current situation as family admits that patient will do whatever Loretta wants to do, including eating high salt foods that will worsen her HF exacerbations. Discussed possible need for sedation if patient is not amenable to lab draws, given that per nursing 4 people had to hold patient to get BP taken. Family does not want her to get sedated, but understands the need for it. Pls confirm with family before proceeding with any IV/sedation measures. Pn 05/17, patient with change in mental status, obtunded. Concern for airway protection. Pt intubated, moved to ICU. Palliative care was consulted to assist with complex medical decision making. On CHANCE on 05/20, pt noted to have LA thrombus, DCCV was aborted. Interval update: Still intermittently agitated, not redirectable. Attempting to liberalize from vent once mentation improves. Assessment Pt visited at bedside. Pt's sister Mounika and HECTOR present at time of visit. Patient was intubated, sedated on very low dose precedex gtt. Pt on rate at time of assessment. Per bedside RN, pt intermittently agitated. Pt appeared comfortable at time of visit. Spoke to pt's sister Siobhan and pt's HECTOR away from bedside. We discussed that the ICU team will try to liberalize patient from vent when able. However, we discussed that if patient is able to be liberalized from the vent, then it is always possible that pt could require re-intubation for a variety of reasons. We had previously discussed the possibility of trach. We also discussed the risks and benefits of cardiac resuscitation. Pt's sister Siobhan does not think that pt would tolerate a trach well, she is worried she would try to pull it out. However, she vocalized being unsure about re-intubation, and has fears that not re-intubating pt could be taking away a chance for her to live. Sheis worried that cardiac resuscitation would cause more harm than good. However, she did not want tomake any of these decisions with her sister Dilia's input. I later called Dilia. I discussed that though we are trying to safely extubate patient, it is always possible patient would require re-intubation. I asked if she wanted to be involved in the decisionto re-intubated. She vocalized that she does want to be involved. However, she did not feel emotionally ready to talk about that today. She endorsed a feeling of anger that patient was intubated in the first place. I respected her boundary today, but endorsed that we would need to talk about this potentially in the coming days. I endorsed that I would try to call her again tomorrow, she was agreeable. Summary of Recommendations: Goals of Care: Goals of care conversations ongoing. Family is hopeful that pt can safely extubate. They are not sure about what she would want if she required re-intubation. Current code status: Full Code Decision maker: Pt does not have advance directive on file. Pt's sisters Nicole and Dilia both identify themselves as POA. They are assisting with decision making. Decision making capacity: At the time of exam, patient deemed NOT decisional by this practitioner today as the following are NOT true: 1) Patient appears to understand the decision options surrounding their condition. 2) Patient understands the risk and benefits of each option. 3) Patient has made a clear decision and can explain the reasoning for that decision 4) Patient has been consistent with medical providers and family about the decision Recommendations/Plan: Plan related to GOC: -Continue current restorative treatment without limitations -Palliative care to continue to follow. Will attempt to get patient's sisters on the same page regarding their thoughts on re-intubation if ever needed, and code status. Symptom management-deferred to ICU team at this time while intubated HPI: 64 y/o F with significnat PMH of HFrEF, AICD removal 07/2024 2/2 infected ICD lead, severe TR, MSSATV endocarditis on cefedroxil, a fib on xarelto, intellecutal disability 2/2 TBI, HTN, DM 2, hypothyropidism. Per chart review, patient follows with [facility] primarily. Of note, patient recently admitted at [facility] forHF exacerbation in 02/2025; per chart review, patient transferred to [facility] from OSH for othorpnea + fluid retention for 2-3 weeks. Pt Lasix increased, added spironolactone but had no improvement. BNP elevated to 2800s, at that time, started on IV bumex. EKG showing afib. Echo showing EF 40- 45%. GDMT was optimized to Entresto 24-26 (0.5 tab) BID, metoprolol XR 100 mg daily, spironolactone 25 mg daily, and Jardiance 10 mg daily. Pt presented to [facility] on 05/15 with edema. Labs notable for hyponatremia 122, K of 6.1, INR 2.9, AST 59, Cr 1.48, Tbili 7.0, BNP 2200. CT CAP with moderate pericardial effusion, right heart dysfunction,body wall edema, pulmonary edema. Cardiology team spoke to pt's sister mounika. Per sister, patient can normally get agitated at home, usually over her food. Sister is asking whether we can fix her after he volume status is controlled. Appears to have poor understanding into current situation as family admits that patient will do whatever Loretta wants to do, including eating high salt foods that will worsen her HF exacerbations. Discussed possible need for sedation if patient is not amenable to lab draws, given that per nursing 4 people had to hold patient to get BP taken. Family does not want her to get sedated, but understands the need for it. Pls confirm with family before proceeding with any IV/sedation measures. Pn 05/17, patient with change in mental status, obtunded. Concern for airway protection. Pt intubated, moved to ICU. Palliative care was consulted to assist with complex medical decision making. Problem list: Active Problems: Hyperkalemia Hyperbilirubinemia Hyponatremia Transaminitis Elevated alkaline phosphatase level Acute on chronic congestive heart failure, unspecified heart failure type (HCC) Obesity with serious comorbidity, unspecified class, unspecified obesity type Demand ischemia (HCC) History of endocarditis TBI (traumatic brain injury) (HCC) Hypothyroidism Atrial fibrillation (HCC) Prolonged Q-T interval on ECG Pericardial effusion (HCC) Acute kidney injury Type 2 diabetes mellitus, without long-term current use of insulin (HCC) Shortness of breath Other shock (HCC) Review of Systems: Positive findings are in bold TOI 2/2 AMS Prior History Patient Active Problem List Diagnosis Date Noted Hyperkalemia 05/15/2025 Priority: Not Prioritized Hyperbilirubinemia 05/15/2025 Priority: Not Prioritized Hyponatremia 05/15/2025 Priority: Not Prioritized Transaminitis 05/15/2025 Priority: Not Prioritized Elevated alkaline phosphatase level 05/15/2025 Priority: Not Prioritized Acute on chronic congestive heart failure, unspecified heart failure type ([facility]) 05/15/2025 Priority: Not Prioritized Obesity with serious comorbidity, unspecified class, unspecified obesity type 05/15/2025 Priority: Not Prioritized Demand ischemia ([facility]) 05/15/2025 Priority: Not Prioritized History of endocarditis 05/15/2025 Priority: Not Prioritized TBI (traumatic brain injury) ([facility]) 05/15/2025 Priority: Not Prioritized Hypothyroidism 05/15/2025 Priority: Not Prioritized Atrial fibrillation ([facility]) 05/15/2025 Priority: Not Prioritized Prolonged Q-T interval on ECG 05/15/2025 Priority: Not Prioritized Pericardial effusion ([facility]) 05/15/2025 Priority: Not Prioritized Acute kidney injury 05/15/2025 Priority: Not Prioritized Type 2 diabetes mellitus, without long-term current use of insulin ([facility]) 05/15/2025 Priority: Not Prioritized Shortness of breath 05/15/2025 Other shock ([facility]) 05/15/2025 Past Surgical History[1] Social History Social History Social History Narrative Not on file Family History Family History[2] Allergies[3] Performance Score/Scales prior to admission: Palliative Performance Scale (PPS) = 70 % Current Inpatient Medications Scheduled: 0.9% NaCl injection 3 mL, Intracatheter, q8h albuterol-ipratropium (Duo-Neb) nebulizer solution 3 mL, Inhalation, q4h artificial tears ophthalmic ointment, Each Eye, q8h bumetanide (Bumex) tablet 1 mg, Oral, BID cefadroxil (Duricef) capsule 500 mg, Oral, BID chlorhexidine (Peridex) 0.12 % oral solution 15 mL, Mouth/Throat, BID cyanocobalamin (Vitamin B-12) tablet 500 mcg, Enteral Tube, QDAY empagliflozin (Jardiance) tablet 10 mg, Oral, QDAY insulin aspart (NovoLOG) pen 0-18 Units, Subcutaneous, q4h insulin glargine (Lantus) pen 5 Units, Subcutaneous, AT BEDTIME levothyroxine (Synthroid) tablet 75 mcg, Enteral Tube, QAM metoprolol tartrate IR (Lopressor) tablet 50 mg, Enteral Tube, q12h pantoprazole (Protonix) injection 40 mg, Intravenous, QDAY polyethylene glycol 3350 (Miralax) packet 17 g, Enteral Tube, BID rivaroxaban (Xarelto) tablet 20 mg, Enteral Tube, QPM senna (Senokot) tablet 17.2 mg, Oral, QDAY sodium phosphate 40 mmol in dextrose 5 % 263.3 mL bolus, Intravenous, Once vitamin D3 (Cholecalciferol) 25 MCG (1000 UNITS) tablet 5,000 Units, Enteral Tube, QDAY [COMPLETED] hydrOXYzine HCl (Atarax) tablet 100 mg, Oral, Once [COMPLETED] lactated ringers IV bolus, Intravenous, Once [COMPLETED] lactated ringers IV bolus, Intravenous, Once [COMPLETED] potassium chloride 40 mEq in 270 mL bolus, Intravenous, Once [Held by Provider] busPIRone (Buspar) tablet 10 mg, Enteral Tube, BID [Held by Provider] escitalopram (Lexapro) tablet 10 mg, Oral, QDAY [Held by Provider] spironolactone (Aldactone) tablet 12.5 mg, Oral, QDAY Continuous: dexmedeTOMIDine (Precedex) 400 mcg in 100 mL NS infusion premix, Intravenous, Continuous PRN: Or Or 0.9% NaCl injection 1-10 mL, Intracatheter, PRN acetaminophen (Tylenol) tablet 500 mg, Oral, q6h PRN albuterol HFA (Proventil; Ventolin; Proair) 108 (90 Base) MCG/ACT inhaler 2 puff, Inhalation, q6h PRN dextrose IV 12.5 g, Intravenous, PRN dextrose IV 25 g, Intravenous, PRN glucagon (Glucagen) injection 1 mg, Subcutaneous, PRN glucose (Diabetic Use) oral gel, Oral, PRN Physical Exam Vitals: 05/23/25 1200 05/23/25 1215 05/23/25 1230 05/23/25 1245 BP: Pulse: 60 60 65 73 Resp: 16 17 16 17 Temp: 98.1 ??F (36.7 ??C) SpO2: 96% 95% 94% 93% Weight: Height: Positive findings are in bold Exam: intubated Resp: intubated, compliant with vent CV: a fib on monitor Ext: edema BLE Skin: no ulcers callous or maceration Neuro: sleeping at time of visit Muscskel: no synovitis in knees ankles, wrists or hands Labs I have personally reviewed and interpreted lab results CBC: Recent Labs Component Name 05/23/25 0326 WBC 5.8 HGB 12.7 HCT 36.3 BMP: Recent Labs Component Name 05/23/25 0326 POTASSIUM 3.3* NA 138 CL 103 CO2 28 CREATININE 0.98* BUN 44* CALCIUM 8.8 PHOS 2.1* MAGNESIUM 2.4 LFT: Recent Labs Component Name 05/23/25 0326 05/22/25 0415 05/21/25 1905 PROT - - 5.7* AST - - 43* ALT - - 19 ALKPHOS - - 230* TBILI - - 8.6* ALB 1.9* - 2.0* - = values in this interval not displayed. Recent Labs Component Name 05/23/25 0326 CALCIUM 8.8 PHOS 2.1* MAGNESIUM 2.4 COAGULATION: Recent Labs Component Name 05/15/25 1454 PT 29.5* INR 2.9 THYROID:No results for input(s): TSH, T3, T4 in the last 78123 hours. CARDIAC:No results for input(s): TROPONIN in the last 64064 hours. LIPASE: Recent Labs Component Name 05/15/25 1454 LIPASE 7* Microbiology Results (past 5 days)-personally reviewed Recent Results (from the past 124 hours) CULTURE SPUTUM+GRAM STAIN Collection Time: 05/19/25 4:20 PM Specimen: Sputum; Microbiology Result Value Ref Range Culture Light normal oropharyngeal alisa Gram Stain Moderate Gram-negative bacilli Gram Stain Moderate Gram-positive cocci Gram Stain Light Yeast Gram Stain >= 25 per low power field Polymorphonuclear cells Gram Stain <10 per low power field Squamous epithelial cells Radiology Results - Past 24 Hours I have personally reviewed radiology results CT Head Wo Contrast Result Date: 05/17/2025 IMPRESSION: 1.No acute intracranial hemorrhage, midline shift, or mass effect. 2.Left side the sinusitis. The left nasogastric tube is in place. > Dictated by Claire Ortiz MD, (development vice president). > Dictated by Instrument Technologist I, Tripp Pablo MD have personally reviewed and interpretedthis examination/study. > Interpreting Provider: Tripp Pablo MD on 05/17/2025 9:24 AM XR Abdomen Kub Portable Result Date: 05/17/2025 IMPRESSION: Enteric tube terminates in the gastric body. > Interpreting Provider: Felipe Munoz MD on 05/17/2025 9:[address] Chest Pe W Abd Pelvis W Cont Result Date: 05/15/2025 Impression: 1.No evidence of acute pulmonary embolism. There is a retained metallic wire within oneof the right inferior lobe pulmonary arteries, likely iatrogenic. 2.Cardiomegaly and a moderate-sized pericardial effusion. Reflux of contrast into the hepatic veins suggesting right heart dysfunction. 3.Interstitial pulmonary edema, small volume ascites and diffuse body wall edema suggesting hypervolemia. Preliminary findings were discussed with the patient's care provider, Dr Sil Cordero by Dr. Tom Dinh via telephone at 05/15/2025 8:24 PM with readback comprehension and verification. > Dictated by Tom Dinh DO, (development vice president). > Dictated by Instrument Technologist I, Ann-Marie Campa MD have personally reviewed and interpreted this examination/study. > Interpreting Provider: Ann-Marie Campa MD on 05/15/2025 10:20 PM XR CHEST 2VW Result Date: 05/15/2025 IMPRESSION: A linear wire-like density projects over the right perihilar region. Cardiomegaly. Likely enlarged pulmonary arteries. Mild interstitial edema. Trace pleural effusions. No pneumothorax. > Interpreting Provider: Felipe Munoz MD on 05/15/2025 3:03 PM Results for orders placed or performed during the hospital encounter of 05/15/25 EKG 12-LEAD Result Value Ref Range Ventricular Rate 106 BPM QRS Duration ms 92 ms Q-T Interval ms 454 ms QTC Calculation (Bezet) 603 ms Calculated R Duvall 0 degrees Calculated T Duvall -31 degrees Interpretation EKG SINUS TACHYCARDIA Hyperkalemia PROLONGED QT ABNORMAL ECG NO PREVIOUS ECGS AVAILABLE Confirmed by DAREK PARADA MD ([id number]) on 05/21/2025 8:34:24 AM EKG 12-LEAD Result Value Ref Range Ventricular Rate 79 BPM QRS Duration ms 102 ms Q-T Interval ms 434 ms QTC Calculation (Bezet) 497 ms Calculated R Duvall 123 degrees Calculated T Duvall -118 degrees Interpretation EKG ATRIAL FIBRILLATION LOW VOLTAGE QRS ANTEROLATERAL INFARCT , AGE UNDETERMINED ABNORMAL ECG WHEN COMPARED WITH ECG OF 15-MAY-2025 14:20, QRS DURATION HAS DECREASED Confirmed by DAREK PARADA MD ([id number]) on 05/21/2025 8:35:06 AM EKG 12-Lead Result Value Ref Range Ventricular Rate 103 BPM QRS Duration ms 86 ms Q-T Interval ms 198 ms QTC Calculation (Bezet) 259 ms Calculated R Duvall 139 degrees Calculated T Duvall -58 degrees Interpretation EKG ATRIAL FIBRILLATION WITH RAPID VENTRICULAR RESPONSE WITH PREMATURE VENTRICULAR OR ABERRANTLY CONDUCTED COMPLEXES POSSIBLE RIGHT VENTRICULAR HYPERTROPHY ANTEROLATERAL INFARCT , AGE UNDETERMINED ABNORMAL ECG WHEN COMPARED WITH ECG OF 16-MAY-2025 04:07 NO SIGNIFICANT CHANGE WAS FOUND Confirmed by DAREK PARADA MD ([id number]) on 05/21/2025 8:36:40 AM EKG 12-Lead Result Value Ref Range Ventricular Rate 134 BPM QRS Duration ms 114 ms Q-T Interval ms 260 ms QTC Calculation (Bezet) 388 ms Calculated R Duvall 99 degrees Calculated T Duvall -90 degrees Interpretation EKG ATRIAL FIBRILLATION WITH RAPID VENTRICULAR RESPONSE WITH PREMATURE VENTRICULAR OR ABERRANTLY CONDUCTED COMPLEXES RIGHTWARD AXIS LOW VOLTAGE QRS CANNOT RULE OUT ANTEROSEPTAL INFARCT , AGE UNDETERMINED ABNORMAL ECG WHEN COMPARED WITH ECG OF 17-MAY-2025 18:14 NO SIGNIFICANT CHANGE WAS FOUND Confirmed by DAREK PARADA MD ([id number]) on 05/21/2025 8:37:09 AM EKG 12-Lead Result Value Ref Range Ventricular Rate 125 BPM QRS Duration ms 116 ms Q-T Interval ms 338 ms QTC Calculation (Bezet) 487 ms Calculated R Duvall 100 degrees Calculated T Duvall -84 degrees Interpretation EKG ATRIAL FIBRILLATION WITH RAPID VENTRICULAR RESPONSE LOW VOLTAGE QRS ANTEROLATERAL INFARCT , AGE UNDETERMINED ABNORMAL ECG WHEN COMPARED WITH ECG OF 20-MAY-2025 09:25 NO SIGNIFICANT CHANGE WAS FOUND Confirmed by DAREK PARADA MD ([id number]) on 05/21/2025 8:38:24 AM Thank you for this consult. Palliative will continue to follow but please contact us with additional or new questions. Recommendations were discussed with the team-cardiology ICU team and MICU 4 team Pt. is at high risk for complications and morbidity or mortality Pt. is critically ill with vital organ impairment or failure Spent 51 minutes performing chart preparation, review of data, and visit with the patient at bedside, discussion with involved teams, discussion with family, and documenting. KYA Reyes 05/23/2025 3:44 PM Palliative Care Nurse Pracitioner [1] Past Surgical History: Procedure Laterality Date Appendectomy Cholecystectomy [2] No family history on file. [3] Allergies Allergen Reactions Sulfa Drugs Urticaria * Mariela Martinez RD/MAGDALENO - 05/23/2025 11:58 AM CDT BRIEF SYNOPSIS: Nutrition Risk Identified but does not meet malnutrition criteria. Nutrition Plan: Current diet order: NPO Tube Feeding Recommendations -- or equivalent: OFF propofol Vital High Protein at goal of 75 ml/hr (x 22 hrs) Provides 1650 kcal, 144 g protein, 185 g carbohydrate, and 1380 ml free water +50 ml q 6 hrs free water flush or per MD if on IVF +100 ml q 4 hrs free water flush or per MD if not on additional fluids Recommendation to Physician: Continue to advance TF to goal rate above -- patient has yet to achieve goal TF. Correct low K and Phos CLINICAL NUTRITION ASSESSMENT: Pt scheduled for reassessment. Patient remains intubated and receiving Vital High Protein @ 40ml/hr. Pt has consistently only received 10-14m//hr of the above TF formula. RD recommends continuing to increase TF to goal rate above and continuing to hold TF one hour before/after levothyroxine administration. Pt has yet to achieve goal TF. Noted pt still has yet to have BM, per cardiology documentation if no BM by today and KUB normal, will administer enema. Ongoing goals of care discussion, notedin MD documentation that pt was non-compliant with cardiac diet. Weight trending down, suspect thisto be related to fluid loss of 16L. Noted low K and Phos. A1c of 7.2%. RD to follow. Infusion Meds: Medications[1] Med/Surg History and Clinical Diagnoses: 64 year old female with history of HFrEF (EF 25% 02/2025), severe TR, MSSA TV endocarditis with AICD removal in 07/2024, Afib on Xarelto, intellectual disability due to TBI, HTN, IDDM, and hypothyroidism who presented to [facility] on 05/16/25 for generalized swelling and 9 lbs weight gain Height: 167.6 cm (5' 6) BMI: Body mass index is 37.9 kg/m??. BMI Range: Morbidly Obese Class 3 IBW/lb (Calculated) Female: 130 Recent Weights/Methods 05/15/2025220405/16/2025 0400 05/18/2025 0400 05/19/2025 0500 05/20/2025 0400 05/21/2025 0400 05/22/2025 0400 05/23/2025 0330 Weight: 120.3 kg (265 lb 4.8 oz) 120.7 kg (266 lb) 119.1 kg (262 lb 9.6 oz) 111.2 kg (245 lb 1.6 oz) 111.1 kg (244 lb 13.5 oz) 109.3 kg (241 lb 1.1 oz) 107.5 kg (237 lb) 106.5 kg (234 lb 12.8 oz) Weight Method : Bed scale Bed scale Bed scale Bed scale Bed scale Bed scale Bed scale Bed scale Weight comments: reviewed, weight trending down, believe this is related to net fluid loss of 16L since 05/15 Admission weight: Weight: 120.3 kg (265 lb 4.8 oz) (05/15/252204) Most recent weight: Weight: 106.5 kg (234 lb 12.8 oz) (05/23/25 0330) Current tube feeding order: VHP @ 40 PO INTAKE Current diet order: NPO Nutrition recommendation: alter/change nutrition order Food Allergies: No known food allergies Last Percent Meal Eaten (%): 199 % (05/19/25 1239) 48 hr PO INTAKE No data recorded None Pain affecting intake: No Chewing/Swallowing: (ETT; no enteral access) GI Concerns: None Stools: Skin/Wound: WDL Estimated Needs: KCAL: 1482-4055 (11-14 kcal/kg ABW) Protein (g): 148g (2.5 g/kg IBW; obese on vent) Fluid (ml): (1-2 L/day or fluid per MD) Needs based on: Kcal/kg- (Comment) (ABW of 120.7kg) Recommended Access Route: TF Labs: Recent Labs Component Name 05/23/25 0326 05/22/25 1604 05/22/25 0415 05/21/25 1905 05/21/25 1601 05/21/25 0329 05/20/25 1646 05/20/25 0845 NA 138 137 136 136 - 135* - 132* 132* POTASSIUM 3.3* 3.8 3.7 3.8 - 3.7 - 4.0 4.0 CO2 28 27 31* 29 - 29 - 29 29 BUN 44* 43* 39* 33* - 29* - 26 26 CREATININE 0.98* 1.06* 1.01* 0.99* - 0.96 - 1.02* 1.02* GLUCOSE 166* 216* 187* 166* - 157* - 266* 266* CALCIUM 8.8 8.9 9.2 8.8 - 8.8 - 8.2* 8.2* ALT - - - ALKPHOS - - - 230* - 254* - 259* AST - - - 43* - 37* - 37* EGFR 65* 59* 63* 64* - 66* - 62* 62* - = values in this interval not displayed. Recent Labs Component Name 05/23/25 0326 05/22/25 1604 05/22/25 0415 PHOS 2.1* 4.0 2.3* Recent Labs Component Name 05/23/25 0326 05/22/25 1604 05/22/25 0415 MAGNESIUM 2.4 2.7* 1.9 Recent Labs Component Name 05/23/25 0326 05/22/25 0415 05/21/25 1905 HGB 12.7 13.4 13.3 HCT 36.3 38.8 38.3 Recent Labs Component Name 05/16/25 0632 HGBA1C 7.2* No data found. MEDICATIONS FOR CURRENT ENCOUNTER: SCHEDULED MEDICATIONS: 0.9% NaCl injection 3 mL, Intracatheter, q8h albuterol-ipratropium (Duo-Neb) nebulizer solution 3 mL, Inhalation, q4h artificial tears ophthalmic ointment, Each Eye, q8h bumetanide (Bumex) tablet 1 mg, Oral, BID cefadroxil (Duricef) capsule 500 mg, Oral, BID chlorhexidine (Peridex) 0.12 % oral solution 15 mL, Mouth/Throat, BID cyanocobalamin (Vitamin B-12) tablet 500 mcg, Enteral Tube, QDAY empagliflozin (Jardiance) tablet 10 mg, Oral, QDAY insulin aspart (NovoLOG) pen 0-18 Units, Subcutaneous, q4h insulin glargine (Lantus) pen 5 Units, Subcutaneous, AT BEDTIME levothyroxine (Synthroid) tablet 75 mcg, Enteral Tube, QAM metoprolol tartrate IR (Lopressor) tablet 50 mg, Enteral Tube, q12h pantoprazole (Protonix) injection 40 mg, Intravenous, QDAY polyethylene glycol 3350 (Miralax) packet 17 g, Enteral Tube, BID rivaroxaban (Xarelto) tablet 20 mg, Enteral Tube, QPM senna (Senokot) tablet 17.2 mg, Oral, QDAY sodium phosphate 40 mmol in dextrose 5 % 263.3 mL bolus, Intravenous, Once vitamin D3 (Cholecalciferol) 25 MCG (1000 UNITS) tablet 5,000 Units, Enteral Tube, QDAY [COMPLETED] hydrOXYzine HCl (Atarax) tablet 100 mg, Oral, Once [COMPLETED] lactated ringers IV bolus, Intravenous, Once [COMPLETED] lactated ringers IV bolus, Intravenous, Once [COMPLETED] potassium chloride 40 mEq in 270 mL bolus, Intravenous, Once [COMPLETED] potassium phosphate 30 mmol in d5w 260 mL bolus premix, Intravenous, Once [Held by Provider] busPIRone (Buspar) tablet 10 mg, Enteral Tube, BID [Held by Provider] escitalopram (Lexapro) tablet 10 mg, Oral, QDAY [Held by Provider] spironolactone (Aldactone) tablet 12.5 mg, Oral, QDAY CONTINUOUS MEDICATIONS: dexmedeTOMIDine (Precedex) 400 mcg in 100 mL NS infusion premix, Intravenous, Continuous PRN MEDICATIONS: Or Or 0.9% NaCl injection 1-10 mL, Intracatheter, PRN acetaminophen (Tylenol) tablet 500 mg, Oral, q6h PRN albuterol HFA (Proventil; Ventolin; Proair) 108 (90 Base) MCG/ACT inhaler 2 puff, Inhalation, q6h PRN dextrose IV 12.5 g, Intravenous, PRN dextrose IV 25 g, Intravenous, PRN glucagon (Glucagen) injection 1 mg, Subcutaneous, PRN glucose (Diabetic Use) oral gel, Oral, PRN hydrOXYzine HCl (Atarax) tablet 25 mg, Oral, q4h PRN Edema LUE Edema: Deep pitting, indentation remains for a short time (tight) (05/23/25799) RLE Edema: Mild pitting, slight indentation (05/23/25 08) LLE Edema: Moderate pitting, indentation subsides rapidly (05/23/25 08) Nutrition Diagnostic Statement: Inadequate oral intake related to:: swallowing difficulty (mechanical ventilation) as evidenced by:: need for parenteral or enteral intake to supplement oral intake Nutrition Diagnostic Statement Progress: Nutrition problem continues Nutrition Intervention: Enteral nutrition: Monitoring: TF, I/Os, BM, labs, meds, weight Evaluation: Nutrition Goal: Total intake will meet estimated nutrient needs Nutrition Goal Timeframe: Throughout stay Nutrition Goal Progress: Continue with current goal RD to follow per clinical nutrition guidelines. Ascom 4535 [1] dexmedeTOMIDine, 0-0.7 mcg/kg/hr, Last Rate: 1.4 mcg/kg/hr (05/23/25816) * Shavon Caldwell MD - 05/23/2025 11:13 AM CDT CARDIOLOGY SERVICE CCU PROGRESS NOTE Admission Date: 05/15/2025 Patient: Loretta Penn (64 year old female) Code Status: Full Code Interval History: Overnight pt became increasingly agitated as precedex was weaned off. Additionally MAPs low while on precedex, given total of 500cc LR overnight. Bumex not administered last night d/t low MAPs. Valium administered without any improvement in agitation. Precedex was increased by night team. Discussedwith ICU this morning, will work on decreasing dose Sister Mounika at bedside this morning. Discussed current care and difficulty with extubation. Sister at bedside shaking patient's bed in attempt to get her to open eyes. Mounika states she is not sure if Loretta would have wanted to live this way, and that she definitely would not have wanted a trach. She feels like she is killing her - reaffirmed that family is making decisions in pt's bestinterest, but we need to consider moving forward what is best for patient given that she has so many admissions and is noncompliant at home. GOC ongoing. Has not had BM - pending KUB. Will plan for enema once KUB is completed Metop tart consolidated to 25mg BID Discussing transfer to ICU service given patient is not in cardiogenic shock and cardiology serviceis not managing any acute cardiac issues. History of Present Illness: Loretta Penn is a 64 year-old female with past medical history significant for HFrEF (EF 25% 02/2025), severe TR, 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 Pt was initially admitted to medicine service and cardiology consulted regarding severity of heart failure and other valvular issues. On admission, labs significant for BNP 2209, trop 24-->23, Na 122, K 6.1, Cr 1.48,alk phos 365, bili 7.7. Pt was shifted with insulin + dextrose, given patiromer and. She was started on IV furosemide TID for acute HFrEF. EKG showing Qtc prolongation. Pt noted to be hypoglycemic in40s on 05/16 AM, hypoglycemia protocol initiated. Patient transferred to primary cardiology service on 05/16 d/t concern that patient may develop cardiogenic shock. On 05/17, decision was made to proceed with light sedation in order to be able to provide meds to pt given that she was not taking any orals d/t sedation; additionally Na in 121-122 range and pt would need more frequent lab draws for mgmt. On transfer to ICU, pt increasing agitated and given IV ativan. Then noted to be obtunded, intubated for airway protection. She was given hypertonic saline 2x, and was also briefly on levophed for BP support. ICU team c[facility]. Started on nitroprusside drip, but then discontinued d/t no proper BP measurements. Palliative consulted regarding family's understanding of medical conditions and difficult decision making. A line and central line placed. Sedation was discontinued on 05/19 AM, pt responding to name but not following commands. Noted to have afib with RVR overnight, proceeded with CHANCE DCCV. On CHANCE on 05/20, pt noted to have LA thrombus, DCCV was aborted. Lactic increasing on 05/20, given 250cc bolus for c/f hypovolemic shock. Patient unable to extubate d/t inability to follow commands despite weaning sedation between 05/21-05/22. Medical Hx: Per chart review, patient follows with [facility] primarily. Of note, patient recently admitted at [facility] forHF exacerbation in 02/2025; per chart review, patient was previously admitted previously at [facility] for MAYS and othorpnea + fluid retention for 2-3 weeks and then transferred to [facility]. [facility] radar systems engineer Dr. Flores increased her lasix from 40qd to BID, added spironolactone but had no improvement. BNPelevated to 2800s, at that time, started on IV bumex. EKG showing afib. Pt received diuresis at [facility] then GDMT was optimized to Entresto 24-26 (0.5 tab) BID, metoprolol XR 100 mg daily, spironolactone 25 mg daily, and Jardiance 10 mg daily. Valve team was consulted during this hospitalization, recommending clinic follow-up without transcatheter tricuspid valve interventions since patient is a poor candidate due to chronic tricuspid valve endocarditis and severe non-ischemic cardiomyopathy with LVEF 25%. Current Medications: Scheduled: Medications[1] Continuous: Medications[2] PRN: Medications[3] Vital Signs: Temp: [98 ??F (36.7 ??C)-98.8 ??F (37.1 ??C)] 98.8 ??F (37.1 ??C) Pulse: [65-102] 67 Resp: [13-29] 15 Arterial Line BP #1: (86-123)/(34-70) 106/55 O2 %: [40 %] 40 % Physical Exam: General: Intubated and sedated, no acute distress Head: normocephalic, atraumatic Eyes: conjunctivae clear, extraocular muscles intact Mouth/Throat: ETT in place CV: regular rate and rhythm, no murmurs appreciated Resp: clear to auscultation bilaterally, no wheezes or crackles heard Abd: soft, nontender, nondistended, normoactive bowel sounds Extremities: no lower extremity edema, no cyanosis Skin: BLE pitting edema 2+ Neuro: moving all extremities well, no focal deficits Lab Results: Labs have been personally reviewed and are remarkable for the following: CBC: Recent Labs Component Name 05/23/25 0326 05/22/25 0415 05/21/25 1905 WBC 5.8 7.6 7.0 HGB 12.7 13.4 13.3 HCT 36.3 38.8 38.3 MCV 94.0 96.3 97.0 Coagulation Panel: Recent Labs Component Name 05/15/25 1454 PT 29.5* INR 2.9 BMP: Recent Labs Component Name 05/23/25 0326 05/22/25 1604 05/22/25 0415 NA 138 137 136 POTASSIUM 3.3* 3.8 3.7 CL 103 101 98 CO2 28 27 31* BUN 44* 43* 39* CREATININE 0.98* 1.06* 1.01* CALCIUM 8.8 8.9 9.2 Recent Labs Component Name 05/23/25 0326 05/22/25 1604 05/22/25 0415 MAGNESIUM 2.4 2.7* 1.9 Recent Labs Component Name 05/23/25 0326 05/22/25 1604 05/22/25 0415 PHOS 2.1* 4.0 2.3* Hepatic Panel: Recent Labs Component Name 05/23/25 0326 05/22/25 1604 05/22/25 0415 05/21/25 1905 05/21/25 1601 05/21/25 0329 05/20/25 1646 05/20/25 0845 05/18/25 0933 05/18/25 0305 05/15/25 2257 05/15/252019 AST - - - 43* - 37* - 37* - - - - ALT - - - - - - - ALKPHOS - - - 230* - 254* - 259* - - - - TBILI - - - 8.6* - 9.9* - 9.4* - - - 7.0* DBILI - - - - - - - - - 4.4* - 4.9* IBILI - - - - - - - - - - - 2.1 ALB 1.9* 2.0* 2.0* 2.0* - 2.2* - 2.2* 2.2* - 2.6* - - - = values in this interval not displayed. ABG: Recent Labs Component Name 05/22/25 0554 05/22/25 0415 05/21/25 1905 PH 7.45 7.47* 7.45 7.52* PCO2 46* 44 49* PO2 85 68* 87 Amylase/Lipase: Invalid input(s): AMYL, LIPA Thyroid Studies: No results for input(s): TSH, T4 in the last 43588 hours. Cardiac Enzymes: No results for input(s): CKTOTAL, CKMB, TROPONINI in the last 65487 hours. Invalid input(s): CKMBINDEX Lipid Panel: No results for input(s): LDLCALC, HDL in the last 38393 hours. Microbiology: Microbiology Results (Displays last 21 days for this encounter ONLY) Procedure Component Value - Date/Time CULTURE SPUTUM+GRAM STAIN [[id number]] Collected: 05/19/25 1620 Lab Status: Final result Specimen: Microbiology from Sputum Updated: 05/21/25 0808 Culture Light normal oropharyngeal alisa Gram Stain Moderate Gram-negative bacilli Moderate Gram-positive cocci Light Yeast >= 25 per low power field Polymorphonuclear cells <10 per low power field Squamous epithelial cells CULTURE BLOOD [[id number]] (Normal) Collected: 05/17/25 1440 Lab Status: Final result Specimen: Blood Peripheral Updated: 05/22/25 193 Culture No growth day 5 MRSA PCR [[id number]] (Normal) Collected: 05/17/25 1440 Lab Status: Final result Specimen: Microbiology from Nasal Updated: 05/17/25 210 MRSA DNA by PCR Not detected Narrative: Methicillin-resistant Staphylococcus aureus (MRSA) DNA is not detected (presumed not colonized withMRSA). CULTURE BLOOD [[id number]] (Normal) Collected: 05/17/25 1436 Lab Status: Final result Specimen: Blood Peripheral Updated: 05/22/25 1931 Culture No growth day 5 Imaging: CT Head Wo Contrast Result Date: 05/17/2025 IMPRESSION: 1.No acute intracranial hemorrhage, midline shift, or mass effect. 2.Left side the sinusitis. The left nasogastric tube is in place. > Dictated by Claire Ortiz MD, (development vice president). > Dictated by Instrument Technologist I, Tripp Pablo MD have personally reviewed and interpretedthis examination/study. > Interpreting Provider: Tripp Pablo MD on 05/17/2025 9:24 AM XR Abdomen Kub Portable Result Date: 05/17/2025 IMPRESSION: Enteric tube terminates in the gastric body. > Interpreting Provider: Felipe Munoz MD on 05/17/2025 9:[address] Chest Pe W Abd Pelvis W Cont Result Date: 05/15/2025 Impression: 1.No evidence of acute pulmonary embolism. There is a retained metallic wire within oneof the right inferior lobe pulmonary arteries, likely iatrogenic. 2.Cardiomegaly and a moderate-sized pericardial effusion. Reflux of contrast into the hepatic veins suggesting right heart dysfunction. 3.Interstitial pulmonary edema, small volume ascites and diffuse body wall edema suggesting hypervolemia. Preliminary findings were discussed with the patient's care provider, Dr Sil Cordero by Dr. Tom Dinh via telephone at 05/15/2025 8:24 PM with readback comprehension and verification. > Dictated by Tom Dinh DO, (development vice president). > Dictated by Instrument Technologist I, Ann-Marie Campa MD have personally reviewed and interpreted this examination/study. > Interpreting Provider: Ann-Marie Campa MD on 05/15/2025 10:20 PM XR CHEST 2VW Result Date: 05/15/2025 IMPRESSION: A linear wire-like density projects over the right perihilar region. Cardiomegaly. Likely enlarged pulmonary arteries. Mild interstitial edema. Trace pleural effusions. No pneumothorax. 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 Initially managed withnitroprusside gtt then discontinued, pt intermittently needing levophed for hypotension. ICU coursec/b inability to follow commands, will need to reassess when more awake. Neurological #Acute encephalopathy #Agitation - Pt noted to be obtunded at 4AM on 05/17, was given ativan earlier In the night for agitation - EEG with generalized slowing - sedation weaned off on M - CT head 05/20 - no acute abnormalities - At baseline, pt responds to her name and is able to express what she wants/doesn't want per sister. Has very limited understanding of her medical conditions iso TBI; sisters administer her meds, and otherwise patient reportedly does ADLs. Very non compliant with cardiac diet at home, and has numerous admissions for HF exacerbations in past PLAN: - ICU consulted, appreciate recs for sedation - cont to hold to assess for improvement in patient'smentation - precedex for agitation - SBT per resp - Plan for enema today - Palliative consulted for decision making and complex family situation Sedation - titrate to RASS goal of 0 to -1 - Monitor mental status every hour and notify MD if any changes - Fall precautions, Seizure precautions, HOB elevated Cardiovascular: #Atrial fibrillation #Left atrial thrombus - Cont home xarelto, had not previously been getting due to agitation - RVR resolved after digoxin load - Unable to do DCCV d/t LA thrombus PLAN: - Cont xarelto - Metop tartrate 25mg BID; can switch to Toprol when able to tolerate po intake - Will need repeat CHANCE in 1 month (around 06/20) to reassess thrombus #Acute decompensated HF with reduced EF 25% #Peripheral edema in BLE - TTE done yesterday - Furosemide IV TID given on day of admission - metop and aldactone held on admission as pt not taking oral meds - Manas removed - Levo discontinued - diuresed with bumex 4mg TID earlier in ICU amdission PLAN: - Bumex 1mg po BID - Empagliflozin 10mg - Hold GDMT iso shock: holding spironactone, metop succ - Xavier hugger for hypothermia - Levo restarted last night, cont to wean #Severe TR - Pt prev seen by [facility] valve team who recommended outpt f/u for possible transcatheter TR eval PLAN: - Will discuss with structural; likely not to have inpt intervention but will need outpt f/u Hemodynamic monitoring - Titrate pressors to minimum amount to keep MAP goal of >60mmHg Pulmonary: #Acute hypoxemic respiratory failure - Pt had to be mechanically intubated on 05/17 AM for c/f airway protection PLAN: - Obtain ABGs prn to adjust vent settings; ICU c/s for vent mgmt - Titrate Fi O2 to the lowest needed to keep Sats > 92% - Keep HOB elevated 30 degrees, oral care, aspiration precautions GI: #Hyperbilirubinemia #Elevated alk phos. improving - 2/2 congestive hepatopathy iso HF exacerbation - CTM CMP daily #Constipation - Inc miralax to BID, start senna qd - If no BM by today and KUB normal, will administer enema Nutrition: tube feeds started CTM BM GI prophyalxis: PPI Renal: #Hypokalemia #Hypervolemic hyponatremia, resolved - Pt hyperkalemic on arrival, shifted with insulin + dextrose and started on lokelma - Noted to be HypoNa, though baseline may be close to 130-132 - Likely hypervolemic hyponatremia iso cardiogenic shock and ADHF PLAN: - Continue diuresis with bumex as above - Replete other lytes as needed - RFP BID Electrolytes: Monitor every 6 hours and replace K if <4, Mg if <2, Phos if <2 Endocrine: #IDDM #Obesity - per notes from 04/19, home regimen is 17U lantus in AM, 12U TID AC + slide 0-10U - Noted to have hypoglycemic episode on M - BG has been ranging 220-300s on 05/20 PLAN: - Cont SSI 0-12U q4hrs, accuchecks q4hrs - Cont lantus 5U qhs Monitor accuchecks every 4 hours and use sliding scale to keep glucose between 140 - 180 #Hypothyroidism - Cont home levothyroxine #Uremia - BUN increasing , will ctm RFP I.D.: #Hypothermia #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 - Pt on cefadroxil 100mg BID for chronic ppx - TTE does not show any vegetations, though noted to have L atrial mass on CCTA 07/2024 - Became hypothermic on 05/17 - Infectious w/u negative so far (CXR, UA, Bcx) - 5d course cefepime finished on 05/22 PLAN: - Resume home cefadroxil Ellison culture if Tmax > 100.4 Heme/Onc: PARTH Transfusion Protocol: Hb < 7, Plt < 10 Code Status: Full Code Lines: Peripheral IV Left Antecubital (Active) Placement Date/Time: 05/15/25 1451 Size (Gauge): 20 G Orientation: Left Location: Antecubital Number of days: 1 Peripheral IV Anterior;Right (Active) Placement Date/Time: 05/16/25 2200 Size (Gauge): 20 G Orientation: Anterior;Right Number of days: 0 Peripheral IV Right Antecubital (Active) Placement Date/Time: 05/16/25 2300 Size (Gauge): 20 G Orientation: Right Location: Antecubital Number of days: 0 Enteral - Nasal/Oral Naso-gastric Nostril/Nare;Left (Active) Placement Date/Time: 05/17/25 0700 Type: Naso-gastric Tube Location: Nostril/Nare;Left Internal Length (cm): 60 Number of days: 0 ETT Endotracheal Tube Cuffed-inflated 7.5 MM (Active) Placement Date/Time: 05/17/25 0327 Person who placed: Michael JIMENES Mask Ventilation: easy mask Induction: Rapid Sequence Device: Endotracheal Tube Location: Oral Tube Type: Cuffed-inflated Tube size (MM): 7.5 MM Depth of insertion: 24 CM Measur... Number of days: 0 Arterial Line (Active) Placement Date/Time: 05/17/25 1100 Placed by: Wendi Scruggs Orientation: Right Site: radial Site Prep: Chlorhexidine Local Anesthetic Used?: No Securement Method: Sutured Procedure Tolerance: Well Number of days: 0 Midline 05/17/25 0154 Right Brachial Vein (Active) Placement Date/Time: 05/17/25 0154 IV Catheter Size: (c) Other (Comments) Orientation: Right Location: Brachial Vein Site Prep: Chlorhexidine Placement Verification: Ultrasound Number of days: 0 Urethral Catheter (Active) Placement Date/Time: 05/17/25 0249 Catheter Type : Double lumen/two-way;Non-latex Catheter Balloon Inflated With: 10 mL Number of days: 0 Prophylaxis: Aspiration precautions w/ HOB elevation by 30 degrees GI prophyalxis w/ pantoprazole VTE prophyalxis w/ SCDs, xarelto Diet: DIET NPO Except: NO EXCEPTIONS DIET TUBE FEEDING CONTINUOUS Activity: Intubated and sedated Disposition: ICU Monitoring The above assessment and plan will be discussed with the attending. This note is not final until attested by attending physician. Shavon Caldwell MD 05/23/2025 11:14 AM 05/17/2025 11:14 AM [1] 0.9% NaCl 3 mL Intracatheter q8h albuterol-ipratropium 3 mL Inhalation q4h artificial tears Each Eye q8h bumetanide 1 mg Oral BID [Held by Provider] busPIRone 10 mg Enteral Tube BID cefadroxil 500 mg Oral BID chlorhexidine 15 mL Mouth/Throat BID cyanocobalamin 500 mcg Enteral Tube QDAY empagliflozin 10 mg Oral QDAY [Held by Provider] escitalopram 10 mg Oral QDAY insulin aspart 0-18 Units Subcutaneous q4h insulin glargine 5 Units Subcutaneous AT BEDTIME levothyroxine 75 mcg Enteral Tube QAM metoprolol tartrate IR 50 mg Enteral Tube q12h pantoprazole 40 mg Intravenous QDAY polyethylene glycol 3350 17 g Enteral Tube BID rivaroxaban 20 mg Enteral Tube QPM senna 17.2 mg Oral QDAY sodium phosphate 40 mmol Intravenous Once [Held by Provider] spironolactone 12.5 mg Oral QDAY vitamin D3 5,000 Units Enteral Tube QDAY [2] dexmedeTOMIDine, 0-0.7 mcg/kg/hr, Last Rate: 1.4 mcg/kg/hr (05/23/25 08) [3] SALINE LOCK, INSERT AND MAINTAIN AND 0.9% NaCl AND 0.9% NaCl acetaminophen albuterol HFA dextrose IV for hypoglycemia OR dextrose IV for hypoglycemia OR glucagon glucose (Diabetic Use) gel hydrOXYzine HCl Cosigned by Jefry Arizmendi MD at 05/23/2025 5:49 PM CDT Associated attestation - Jefry Arizmendi MD - 05/23/2025 5:49 PM CDT ATTENDING PHYSICIAN NOTE Patient seen and examined. Objective data including vitals, laboratory results and pertinent imaging studies were independently reviewed by me. I confirm history, exam, assessment and plan in the resident's note. Date of service is the date of the resident's note. Jefry Arizmendi MD Business Unit Manager of Internal Medicine Director, Echo Lab [facility] * Maryann Nielsen I., DO - 05/23/2025 9:45 AM CDT MICU consult Name: Loretta Penn Hospital Day: 8 ADMITTING/PRIMARY TEAM:CARDIOLOGY MICU CONSULTED FOR: ICU assistance/vent management SUBJECTIVE BRIEF HOSPITAL COURSE: Ms. 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 Initially admitted to floor for HFrEF exacerbation, started on IV diuretics. Hospital course c/b hypoNa, hyperK, hypoglycemia; transferred to cards service 05/17 and later to ICU for persistent agitation and encephalopathy requiring intubation. INTERVAL HISTORY: Still intermittent agitated, not redirectable. Per RNs, intermittently following commands but stillhas not done so for me. Had to start precedex yesterday to help with severe agitation. Patient's family at bedside -- discussed need for improvement in mentation for liberation from ventilator. OBJECTIVE Temp: [98 ??F (36.7 ??C)-98.8 ??F (37.1 ??C)] 98.8 ??F (37.1 ??C) Pulse: [65-102] 69 Resp: [13-29] 21 Arterial Line BP #1: (86-115)/(34-64) 109/54 O2 %: [40 %] 40 % I/O last 2 completed shifts: In: 1731.9 [I.V.:672.9; NG/GT:110] Out: 400 [Urine:400] General: Intubated HEENT: NC AT Cardio: RRR Resp: Mechanically ventilated, equal breath sounds bilaterally Abdomen: Soft ND Extremities: No edema Neuro: On precedex. Will move all extremities. Will not follow commands. ASSESSMENT & PLAN Critical care was necessary to treat or prevent life-threatening deterioration of the following -- Acute encephalopathy with respiratory failure requiring mechanical ventilation Hyperkalemia (POA: Yes) Hyperbilirubinemia (POA: Yes) Hyponatremia (POA: Yes) Transaminitis (POA: Yes) Elevated alkaline phosphatase level (POA: Yes) Acute on chronic congestive heart failure, unspecified heart failure type (HCC) (POA: Yes) Obesity with serious comorbidity, unspecified class, unspecified obesity type (POA: Yes) Demand ischemia (HCC) (POA: Yes) History of endocarditis (POA: Yes) TBI (traumatic brain injury) (HCC) (POA: Yes) Hypothyroidism (POA: Yes) Atrial fibrillation (HCC) (POA: Yes) Prolonged Q-T interval on ECG (POA: Yes) Pericardial effusion (HCC) (POA: Yes) Acute kidney injury (POA: Yes) Type 2 diabetes mellitus, without long-term current use of insulin (HCC) (POA: Yes) Shortness of breath (POA: Unknown) Other shock (HCC) (POA: Unknown) NEURO -- Sedation: Had to restart precedex 05/22 d/t extreme agitation and inability to redirect patient. Was escalated overnight by primary service but needs to be weaned today. -- Delirium ppx: Encourage normal sleep-wake cycle: lights on during day, lights off at night, frequent re-orientation, minimize sleep interruptions. Avoid sedating meds like benzos and antipsychotics -- Primary team holding home buspar and lexapro d/t encephalopathy and prolonged QTc. Would need repeat EKG for QTc before starting when encephalopathy improves. CV -- HFrEF in acute exacerbation; severe MR and TR. -- Afib on dig and xarelto. Primary service planned for DCCV 05/20 but aborted d/t clot. PULM -- Acute hypoxic respiratory failure in setting of encephalopathy, intubated 05/17. Remains mechanically ventilated d/t persistent encephalopathy. Have been alternating between PCMV and PSV depending on mentation and Vt. -- Highly recommend lung protective ventilation, Vt 6-8 cc/kg, driving pressure < 13, plateau pressures < 30 -- Not a candidate for liberation d/t mental status GI -- Bowel velia -- still without BM, would obtain KUB. If normal bowel gas pattern, escalate bowel velia with enema or suppository. -- NPO w/ tube feeds RENAL -- Monitor renal function, lytes, I/O. Avoid nephrotoxic agents ENDO -- DM: Trend sugars, goal 140-180. Hypoglycemia protocol -- Hypothyroidism, continue home synthroid. ID -- Completed course of cefepime although all cx negative. Now back on home chronic abx ppx HEME/ONC -- Monitor H&H, transfuse for Hb < 7, plt < 10 (< 50 if bleeding, <30 if MCS) ETT since 05/17. A line since 05/17, consider d/c Midline since 05/17. I spent 35 minutes in full attendance with this critically-ill patient. Time spent was exclusive ofseparately billed procedures, treating other patients, and teaching time. Pt. is at high risk for complications and morbidity or mortality Pt. is critically ill with vital organ impairment or failure There is high probability of imminent or life threatening deterioration in the patient's condition Time involved in the performance of separately billable procedures, teaching, reviewing education material was not counted towards critical care time. Date of service: 05/23/2025 Maryann Nielsen DO Pulmonary/Critical Care Medicine * Hina Prajapati APRN-ORNAMENTAL MACHINE OPERATOR - 05/22/2025 5:37 PM CDT Palliative Medicine Progress Note Loretta Penn Age: [age] year old Date of : 1960 Date of Admission: 05/15/2025 Summary 64 y/o F with significnat PMH of HFrEF, AICD removal 07/2024 2/2 infected ICD lead, severe TR, MSSATV endocarditis on cefedroxil, a fib on xarelto, intellecutal disability 2/2 TBI, HTN, DM 2, hypothyropidism. Per chart review, patient follows with [facility] primarily. Of note, patient recently admitted at [facility] forHF exacerbation in 02/2025; per chart review, patient transferred to [facility] from [facility] for othorpnea + fluid retention for 2-3 weeks. Pt Lasix increased, added spironolactone but had no improvement. BNP elevated to 2800s, at that time, started on IV bumex. EKG showing afib. Echo showing EF 40- 45%. GDMT was optimized to Entresto 24-26 (0.5 tab) BID, metoprolol XR 100 mg daily, spironolactone 25 mg daily, and Jardiance 10 mg daily. Pt presented to [facility] on 05/15 with edema. Labs notable for hyponatremia 122, K of 6.1, INR 2.9, AST 59, Cr 1.48, Tbili 7.0, BNP 2200. CT CAP with moderate pericardial effusion, right heart dysfunction,body wall edema, pulmonary edema. Cardiology team spoke to pt's sister mounika. Per sister, patient can normally get agitated at home, usually over her food. Sister is asking whether we can fix her after he volume status is controlled. Appears to have poor understanding into current situation as family admits that patient will do whatever Loretta wants to do, including eating high salt foods that will worsen her HF exacerbations. Discussed possible need for sedation if patient is not amenable to lab draws, given that per nursing 4 people had to hold patient to get BP taken. Family does not want her to get sedated, but understands the need for it. Pls confirm with family before proceeding with any IV/sedation measures. Pn 05/17, patient with change in mental status, obtunded. Concern for airway protection. Pt intubated, moved to ICU. Palliative care was consulted to assist with complex medical decision making. Interval update: On CHANCE on 05/20, pt noted to have LA thrombus, DCCV was aborted Assessment Pt visited at bedside. No family present at time of visit. Patient was intubated, sedated on very low dose precedex gtt. Pt on SBT at time of assessment. Per bedside RN, pt intermittently agitated. Pt appeared comfortable at time of visit. I called pt's sisters Siobhan and Dilia. I provided update that currently, medical team is unsure if pt would be a candidate for TR intervention, and that this would need to be followed up OP. I discussed that the ICU team is evaluating pt frequently for readiness to extubate. I endorsed that if pt is able to be extubated, it is always possible that she could require re-intubation for a variety of reasons. I discussed that if pt is re-intubated, and is unable to come off the vent again, it is possible that they would be approached about trach. I discussed trach in context of QOL, and that typically, trach requires feeding tube placement. I discussed that at times, traches are temporary, but if pt is unable to get better, they can be permanent. Pt's family expressed concern about her ability to live with a trach. I asked family if they believe pt would want to be re-intubated if she were to fail extubation. Pt's family became tearful, and endorsed that they did not have an answer at this time. I offered to discuss code status further, but family declined to continue discussion at this time, noting needing to take a break from this difficult conversation. They plan to meet at bedside again tomorrow. Summary of Recommendations: Goals of Care: Goals of care conversations ongoing. Family is hopeful that pt can safely extubate. They are not sure about what she would want if she required re-intubation. Current code status: Full Code Decision maker: Pt does not have advance directive on file. Pt's sisters Nicole and Dilia both identify themselves as POA. They are assisting with decision making. Decision making capacity: At the time of exam, patient deemed NOT decisional by this practitioner today as the following are NOT true: 1) Patient appears to understand the decision options surrounding their condition. 2) Patient understands the risk and benefits of each option. 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 Per chart review, patient follows with [facility] primarily. Of note, patient recently admitted at [facility] forHF exacerbation in 02/2025; per chart review, patient transferred to [facility] from OSH for othorpnea + fluid retention for 2-3 weeks. Pt Lasix increased, added spironolactone but had no improvement. BNP elevated to 2800s, at that time, started on IV bumex. EKG showing afib. Echo showing EF 40- 45%. GDMT was optimized to Entresto 24-26 (0.5 tab) BID, metoprolol XR 100 mg daily, spironolactone 25 mg daily, and Jardiance 10 mg daily. Pt presented to [facility] on 05/15 with edema. Labs notable for hyponatremia 122, K of 6.1, INR 2.9, AST 59, Cr 1.48, Tbili 7.0, BNP 2200. CT CAP with moderate pericardial effusion, right heart dysfunction,body wall edema, pulmonary edema. Cardiology team spoke to pt's sister mounika. Per sister, patient can normally get agitated at home, usually over her food. Sister is asking whether we can fix her after he volume status is controlled. Appears to have poor understanding into current situation as family admits that patient will do whatever Loretta wants to do, including eating high salt foods that will worsen her HF exacerbations. Discussed possible need for sedation if patient is not amenable to lab draws, given that per nursing 4 people had to hold patient to get BP taken. Family does not want her to get sedated, but understands the need for it. Pls confirm with family before proceeding with any IV/sedation measures. Pn 05/17, patient with change in mental status, obtunded. Concern for airway protection. Pt intubated, moved to ICU. Palliative care was consulted to assist with complex medical decision making. Problem list: Active Problems: Hyperkalemia Hyperbilirubinemia Hyponatremia Transaminitis Elevated alkaline phosphatase level Acute on chronic congestive heart failure, unspecified heart failure type (HCC) Obesity with serious comorbidity, unspecified class, unspecified obesity type Demand ischemia (HCC) History of endocarditis TBI (traumatic brain injury) (HCC) Hypothyroidism Atrial fibrillation (HCC) Prolonged Q-T interval on ECG Pericardial effusion (HCC) Acute kidney injury Type 2 diabetes mellitus, without long-term current use of insulin (HCC) Shortness of breath Other shock (HCC) Review of Systems: Positive findings are in bold TOI 2/2 AMS Prior History Patient Active Problem List Diagnosis Date Noted ??? Hyperkalemia 05/15/2025 Priority: Not Prioritized ??? Hyperbilirubinemia 05/15/2025 Priority: Not Prioritized ??? Hyponatremia 05/15/2025 Priority: Not Prioritized ??? Transaminitis 05/15/2025 Priority: Not Prioritized ??? Elevated alkaline phosphatase level 05/15/2025 Priority: Not Prioritized ??? Acute on chronic congestive heart failure, unspecified heart failure type ([facility]) 05/15/2025 Priority: Not Prioritized ??? Obesity with serious comorbidity, unspecified class, unspecified obesity type 05/15/2025 Priority: Not Prioritized ??? Demand ischemia ([facility]) 05/15/2025 Priority: Not Prioritized ??? History of endocarditis 05/15/2025 Priority: Not Prioritized ??? TBI (traumatic brain injury) ([facility]) 05/15/2025 Priority: Not Prioritized ??? Hypothyroidism 05/15/2025 Priority: Not Prioritized ??? Atrial fibrillation ([facility]) 05/15/2025 Priority: Not Prioritized ??? Prolonged Q-T interval on ECG 05/15/2025 Priority: Not Prioritized ??? Pericardial effusion ([facility]) 05/15/2025 Priority: Not Prioritized ??? Acute kidney injury 05/15/2025 Priority: Not Prioritized ??? Type 2 diabetes mellitus, without long-term current use of insulin ([facility]) 05/15/2025 Priority: Not Prioritized ??? Shortness of breath 05/15/2025 ??? Other shock ([facility]) 05/15/2025 Past Surgical History[1] Social History Social History Social History Narrative ??? Not on file Family History Family History[2] Allergies[3] Performance Score/Scales prior to admission: Palliative Performance Scale (PPS) = 70 % Current Inpatient Medications Scheduled: 0.9% NaCl injection 3 mL, Intracatheter, q8h albuterol-ipratropium (Duo-Neb) nebulizer solution 3 mL, Inhalation, q4h artificial tears ophthalmic ointment, Each Eye, q8h bumetanide (Bumex) tablet 1 mg, Oral, BID cefadroxil (Duricef) capsule 500 mg, Oral, BID chlorhexidine (Peridex) 0.12 % oral solution 15 mL, Mouth/Throat, BID cyanocobalamin (Vitamin B-12) tablet 500 mcg, Enteral Tube, QDAY empagliflozin (Jardiance) tablet 10 mg, Oral, QDAY insulin aspart (NovoLOG) pen 0-18 Units, Subcutaneous, q4h insulin glargine (Lantus) pen 5 Units, Subcutaneous, AT BEDTIME levothyroxine (Synthroid) tablet 75 mcg, Enteral Tube, QAM metoprolol tartrate IR (Lopressor) tablet 25 mg, Enteral Tube, q6h pantoprazole (Protonix) injection 40 mg, Intravenous, QDAY polyethylene glycol 3350 (Miralax) packet 17 g, Enteral Tube, BID rivaroxaban (Xarelto) tablet 20 mg, Enteral Tube, QPM senna (Senokot) tablet 17.2 mg, Oral, QDAY vitamin D3 (Cholecalciferol) 25 MCG (1000 UNITS) tablet 5,000 Units, Enteral Tube, QDAY [COMPLETED] cefepime (Maxipime) 2,000 mg in NaCl IV 0.9 % 50 mL IVPB, Intravenous, q8h [COMPLETED] magnesium sulfate 4 g in 100 mL bolus, Intravenous, Once [COMPLETED] potassium phosphate 30 mmol in d5w 260 mL bolus premix, Intravenous, Once [COMPLETED] sodium - potassium phosphates (K Phos Neutral) tablet 2 tablet, Enteral Tube, Once [Held by Provider] busPIRone (Buspar) tablet 10 mg, Enteral Tube, BID [Held by Provider] escitalopram (Lexapro) tablet 10 mg, Oral, QDAY [Held by Provider] spironolactone (Aldactone) tablet 12.5 mg, Oral, QDAY Continuous: dexmedeTOMIDine (Precedex) 400 mcg in 100 mL NS infusion premix, Intravenous, Continuous PRN: Or Or 0.9% NaCl injection 1-10 mL, Intracatheter, PRN acetaminophen (Tylenol) tablet 500 mg, Oral, q6h PRN albuterol HFA (Proventil; Ventolin; Proair) 108 (90 Base) MCG/ACT inhaler 2 puff, Inhalation, q6h PRN dextrose IV 12.5 g, Intravenous, PRN dextrose IV 25 g, Intravenous, PRN diazePAM (Valium) injection 2.5 mg, Intravenous, Once PRN glucagon (Glucagen) injection 1 mg, Subcutaneous, PRN glucose (Diabetic Use) oral gel, Oral, PRN hydrOXYzine HCl (Atarax) tablet 25 mg, Oral, q4h PRN Physical Exam Vitals: 05/22/25 1500 05/22/25 1600 05/22/25 1619 05/22/25 1700 BP: Pulse: 78 74 75 70 Resp: 17 19 17 17 Temp: SpO2: 91% 94% 95% 90% Weight: Height: Positive findings are in bold Exam: intubated Resp: intubated, compliant with vent CV: a fib on monitor Ext: edema BLE Skin: no ulcers callous or maceration Neuro: sleeping at time of visit Muscskel: no synovitis in knees ankles, wrists or hands Labs I have personally reviewed and interpreted lab results CBC: Recent Labs Component Name 05/22/25 0415 WBC 7.6 HGB 13.4 HCT 38.8 BMP: Recent Labs Component Name 05/22/25 1604 POTASSIUM 3.8 NA 137 CL 101 CO2 27 CREATININE 1.06* BUN 43* CALCIUM 8.9 PHOS 4.0 MAGNESIUM 2.7* LFT: Recent Labs Component Name 05/22/25 1604 05/22/25 0415 05/21/25 1905 PROT - - 5.7* AST - - 43* ALT - - 19 ALKPHOS - - 230* TBILI - - 8.6* ALB 2.0* - 2.0* - = values in this interval not displayed. Recent Labs Component Name 05/22/25 1604 CALCIUM 8.9 PHOS 4.0 MAGNESIUM 2.7* COAGULATION: Recent Labs Component Name 05/15/25 1454 PT 29.5* INR 2.9 THYROID:No results for input(s): TSH, T3, T4 in the last 68235 hours. CARDIAC:No results for input(s): TROPONIN in the last 96985 hours. LIPASE: Recent Labs Component Name 05/15/25 1454 LIPASE 7* Microbiology Results (past 5 days)-personally reviewed Recent Results (from the past 124 hours) CULTURE BLOOD Collection Time: 05/17/25 2:36 PM Specimen: Blood Peripheral Result Value Ref Range Culture No growth CULTURE BLOOD Collection Time: 05/17/25 2:40 PM Specimen: Blood Peripheral Result Value Ref Range Culture No growth MRSA PCR Collection Time: 05/17/25 2:40 PM Specimen: Nasal; Microbiology Result Value Ref Range MRSA DNA by PCR Not detected Not detected CULTURE SPUTUM+GRAM STAIN Collection Time: 05/19/25 4:20 PM Specimen: Sputum; Microbiology Result Value Ref Range Culture Light normal oropharyngeal alisa Gram Stain Moderate Gram-negative bacilli Gram Stain Moderate Gram-positive cocci Gram Stain Light Yeast Gram Stain >= 25 per low power field Polymorphonuclear cells Gram Stain <10 per low power field Squamous epithelial cells Radiology Results - Past 24 Hours I have personally reviewed radiology results CT Head Wo Contrast Result Date: 05/17/2025 IMPRESSION: 1.No acute intracranial hemorrhage, midline shift, or mass effect. 2.Left side the sinusitis. The left nasogastric tube is in place. > Dictated by Claire Ortiz MD, (development vice president). > Dictated by Instrument Technologist I, Tripp Pablo MD have personally reviewed and interpretedthis examination/study. > Interpreting Provider: Tripp Pablo MD on 05/17/2025 9:24 AM XR Abdomen Kub Portable Result Date: 05/17/2025 IMPRESSION: Enteric tube terminates in the gastric body. > Interpreting Provider: Felipe Munoz MD on 05/17/2025 9:[address] Chest Pe W Abd Pelvis W Cont Result Date: 05/15/2025 Impression: 1.No evidence of acute pulmonary embolism. There is a retained metallic wire within oneof the right inferior lobe pulmonary arteries, likely iatrogenic. 2.Cardiomegaly and a moderate-sized pericardial effusion. Reflux of contrast into the hepatic veins suggesting right heart dysfunction. 3.Interstitial pulmonary edema, small volume ascites and diffuse body wall edema suggesting hypervolemia. Preliminary findings were discussed with the patient's care provider, Dr Sil Cordero by Dr. Tom Dinh via telephone at 05/15/2025 8:24 PM with readback comprehension and verification. > Dictated by Tom Dinh DO, (development vice president). > Dictated by Instrument Technologist I, Ann-Marie Campa MD have personally reviewed and interpreted this examination/study. > Interpreting Provider: Ann-Marie Campa MD on 05/15/2025 10:20 PM XR CHEST 2VW Result Date: 05/15/2025 IMPRESSION: A linear wire-like density projects over the right perihilar region. Cardiomegaly. Likely enlarged pulmonary arteries. Mild interstitial edema. Trace pleural effusions. No pneumothorax. > Interpreting Provider: Felipe Munoz MD on 05/15/2025 3:03 PM Results for orders placed or performed during the hospital encounter of 05/15/25 EKG 12-LEAD Result Value Ref Range Ventricular Rate 106 BPM QRS Duration ms 92 ms Q-T Interval ms 454 ms QTC Calculation (Bezet) 603 ms Calculated R Duvall 0 degrees Calculated T Duvall -31 degrees Interpretation EKG SINUS TACHYCARDIA Hyperkalemia PROLONGED QT ABNORMAL ECG NO PREVIOUS ECGS AVAILABLE Confirmed by DAREK PARADA MD ([id number]) on 05/21/2025 8:34:24 AM EKG 12-LEAD Result Value Ref Range Ventricular Rate 79 BPM QRS Duration ms 102 ms Q-T Interval ms 434 ms QTC Calculation (Bezet) 497 ms Calculated R Duvall 123 degrees Calculated T Duvall -118 degrees Interpretation EKG ATRIAL FIBRILLATION LOW VOLTAGE QRS ANTEROLATERAL INFARCT , AGE UNDETERMINED ABNORMAL ECG WHEN COMPARED WITH ECG OF 15-MAY-2025 14:20, QRS DURATION HAS DECREASED Confirmed by DAREK PARADA MD ([id number]) on 05/21/2025 8:35:06 AM EKG 12-Lead Result Value Ref Range Ventricular Rate 103 BPM QRS Duration ms 86 ms Q-T Interval ms 198 ms QTC Calculation (Bezet) 259 ms Calculated R Duvall 139 degrees Calculated T Duvall -58 degrees Interpretation EKG ATRIAL FIBRILLATION WITH RAPID VENTRICULAR RESPONSE WITH PREMATURE VENTRICULAR OR ABERRANTLY CONDUCTED COMPLEXES POSSIBLE RIGHT VENTRICULAR HYPERTROPHY ANTEROLATERAL INFARCT , AGE UNDETERMINED ABNORMAL ECG WHEN COMPARED WITH ECG OF 16-MAY-2025 04:07 NO SIGNIFICANT CHANGE WAS FOUND Confirmed by DAREK PARADA MD ([id number]) on 05/21/2025 8:36:40 AM EKG 12-Lead Result Value Ref Range Ventricular Rate 134 BPM QRS Duration ms 114 ms Q-T Interval ms 260 ms QTC Calculation (Bezet) 388 ms Calculated R Duvall 99 degrees Calculated T Duvall -90 degrees Interpretation EKG ATRIAL FIBRILLATION WITH RAPID VENTRICULAR RESPONSE WITH PREMATURE VENTRICULAR OR ABERRANTLY CONDUCTED COMPLEXES RIGHTWARD AXIS LOW VOLTAGE QRS CANNOT RULE OUT ANTEROSEPTAL INFARCT , AGE UNDETERMINED ABNORMAL ECG WHEN COMPARED WITH ECG OF 17-MAY-2025 18:14 NO SIGNIFICANT CHANGE WAS FOUND Confirmed by DAREK PARADA MD ([id number]) on 05/21/2025 8:37:09 AM EKG 12-Lead Result Value Ref Range Ventricular Rate 125 BPM QRS Duration ms 116 ms Q-T Interval ms 338 ms QTC Calculation (Bezet) 487 ms Calculated R Duvall 100 degrees Calculated T Duvall -84 degrees Interpretation EKG ATRIAL FIBRILLATION WITH RAPID VENTRICULAR RESPONSE LOW VOLTAGE QRS ANTEROLATERAL INFARCT , AGE UNDETERMINED ABNORMAL ECG WHEN COMPARED WITH ECG OF 20-MAY-2025 09:25 NO SIGNIFICANT CHANGE WAS FOUND Confirmed by DAREK PARADA MD ([id number]) on 05/21/2025 8:38:24 AM Thank you for this consult. Palliative will continue to follow but please contact us with additional or new questions. Recommendations were discussed with the team-cardiology ICU team and MICU 4 team Pt. is at high risk for complications and morbidity or mortality Pt. is critically ill with vital organ impairment or failure Time was spent performing chart preparation, review of data, and visit with the patient at bedside,discussion with involved teams, discussion with family, and documenting. KYA Reyes 05/22/2025 5:37 PM Palliative Care Nurse Pracitioner [1] Past Surgical History: Procedure Laterality Date ??? Appendectomy ??? Cholecystectomy [2] No family history on file. [3] Allergies Allergen Reactions ??? Sulfa Drugs Urticaria * Shavon Caldwell MD - 05/22/2025 8:27 AM CDT CARDIOLOGY SERVICE CCU PROGRESS NOTE Admission Date: 05/15/2025 Patient: Loretta Penn (64 year old female) Code Status: Full Code Interval History: Pt still not following commands per ICU, unable to extubate. Will reconsider extubation tomorrow Started on precedex this AM for agitation as she was attempting to get out of bed Switched bumex to oral this AM Escalating BM to miralax BID and starting senna qd. 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 Pt was initially admitted to medicine service and cardiology consulted regarding severity of heart failure and other valvular issues. On admission, labs significant for BNP 2209, trop 24-->23, Na 122, K 6.1, Cr 1.48,alk phos 365, bili 7.7. Pt was shifted with insulin + dextrose, given patiromer and. She was started on IV furosemide TID for acute HFrEF. EKG showing Qtc prolongation. Pt noted to be hypoglycemic in40s on 05/16 AM, hypoglycemia protocol initiated. Patient transferred to primary cardiology service on 05/16 d/t concern that patient may develop cardiogenic shock. On 05/17, decision was made to proceed with light sedation in order to be able to provide meds to pt given that she was not taking any orals d/t sedation; additionally Na in 121-122 range and pt would need more frequent lab draws for mgmt. On transfer to ICU, pt increasing agitated and given IV ativan. Then noted to be obtunded, intubated for airway protection. She was given hypertonic saline 2x, and was also briefly on levophed for BP support. ICU team c/s for [facility] vent management. Started on nitroprusside drip, but then discontinued d/t no proper BP measurements. Palliative consulted regarding family's understanding of medical conditions and difficult decision making. A line and central line placed. Sedation was discontinued on 05/19 AM, pt responding to name but not following commands. Noted to have afib with RVR overnight, proceeded with [facility] DCCV. On [facility]ANCE on 05/20, pt noted to have LA thrombus, DCCV was aborted. Lactic increasing on 05/20, given 250cc bolus for c/f hypovolemic shock. Medical Hx: Per chart review, patient follows with [facility] primarily. Of note, patient recently admitted at [facility] forHF exacerbation in 02/2025; per chart review, patient was previously admitted previously at [facility] for MAYS and othorpnea + fluid retention for 2-3 weeks and then transferred to [facility]. [facility] radar systems engineer Dr. Flores increased her lasix from 40qd to BID, added spironolactone but had no improvement. BNPelevated to 2800s, at that time, started on IV bumex. EKG showing afib. Pt received diuresis at [facility] then GDMT was optimized to Entresto 24-26 (0.5 tab) BID, metoprolol XR 100 mg daily, spironolactone 25 mg daily, and Jardiance 10 mg daily. Valve team was consulted during this hospitalization, recommending clinic follow-up without transcatheter tricuspid valve interventions since patient is a poor candidate due to chronic tricuspid valve endocarditis and severe non-ischemic cardiomyopathy with LVEF 25%. Current Medications: Scheduled: Medications[1] Continuous: Medications[2] PRN: Medications[3] Vital Signs: Temp: [98.3 ??F (36.8 ??C)-99.6 ??F (37.6 ??C)] 98.9 ??F (37.2 ??C) Pulse: [77-132] 92 Resp: [10-28] 11 Arterial Line BP #1: (0-260)/(0-164) 103/57 O2 %: [30 %-40 %] 40 % Physical Exam: General: Intubated and sedated, no acute distress Head: normocephalic, atraumatic Eyes: conjunctivae clear, extraocular muscles intact Mouth/Throat: ETT in place CV: regular rate and rhythm, no murmurs appreciated Resp: clear to auscultation bilaterally, no wheezes or crackles heard Abd: soft, nontender, nondistended, normoactive bowel sounds Extremities: no lower extremity edema, no cyanosis Skin: BLE pitting edema 2+ Neuro: moving all extremities well, no focal deficits Lab Results: Labs have been personally reviewed and are remarkable for the following: CBC: Recent Labs Component Name 05/22/2541405/21/25190405/21/25 0329 WBC 7.6 7.0 9.1 HGB 13.4 13.3 13.8 HCT 38.8 38.3 40.2 MCV 96.3 97.0 95.5 Coagulation Panel: Recent Labs Component Name 05/15/25 1454 PT 29.5* INR 2.9 BMP: Recent Labs Component Name 05/22/2541405/21/25190405/21/25 1601 NA 136 136 136 POTASSIUM 3.7 3.8 3.7 CL 98 98 98 CO2 31* 29 30* BUN 39* 33* 33* CREATININE 1.01* 0.99* 0.95 CALCIUM 9.2 8.8 8.7 Recent Labs Component Name 05/22/25 0415 05/21/25 1905 05/21/25 1601 MAGNESIUM 1.9 1.9 1.9 Recent Labs Component Name 05/22/25 0415 05/21/25 1905 05/21/25 1601 PHOS 2.3* 3.0 2.9 Hepatic Panel: Recent Labs Component Name 05/22/25 0415 05/21/25 1905 05/21/25 1601 05/21/25 0329 05/20/25 1646 05/20/25 0845 05/18/25 0933 05/18/25 0305 05/15/25 2257 05/15/252019 AST - 43* - 37* - 37* - - - - ALT - - - - - ALKPHOS - 230* - 254* - 259* - - - - TBILI - 8.6* - 9.9* - 9.4* - - - 7.0* DBILI - - - - - - - 4.4* - 4.9* IBILI - - - - - - - - - 2.1 ALB 2.0* 2.0* 2.0* 2.2* - 2.2* 2.2* - 2.6* - - - = values in this interval not displayed. ABG: Recent Labs Component Name 05/22/25 0554 05/22/2541405/21/25 190 PH 7.45 7.47* 7.45 7.52* PCO2 46* 44 49* PO2 85 68* 87 Amylase/Lipase: Invalid input(s): AMYL, LIPA Thyroid Studies: No results for input(s): TSH, T4 in the last 89422 hours. Cardiac Enzymes: No results for input(s): CKTOTAL, CKMB, TROPONINI in the last 51736 hours. Invalid input(s): CKMBINDEX Lipid Panel: No results for input(s): LDLCALC, HDL in the last 54395 hours. Microbiology: Microbiology Results (Displays last 21 days for this encounter ONLY) Procedure Component Value - Date/Time CULTURE SPUTUM+GRAM STAIN [[id number]] Collected: 05/19/25 1620 Lab Status: Final result Specimen: Microbiology from Sputum Updated: 05/21/25 0808 Culture Light normal oropharyngeal alisa Gram Stain Moderate Gram-negative bacilli Moderate Gram-positive cocci Light Yeast >= 25 per low power field Polymorphonuclear cells <10 per low power field Squamous epithelial cells CULTURE BLOOD [[id number]] (Normal) Collected: 05/17/25 1440 Lab Status: Preliminary result Specimen: Blood Peripheral Updated: 05/19/25 193 Culture No growth MRSA PCR [[id number]] (Normal) Collected: 05/17/25 1440 Lab Status: Final result Specimen: Microbiology from Nasal Updated: 05/17/25 210 MRSA DNA by PCR Not detected Narrative: Methicillin-resistant Staphylococcus aureus (MRSA) DNA is not detected (presumed not colonized withMRSA). CULTURE BLOOD [[id number]] (Normal) Collected: 05/17/25 1436 Lab Status: Preliminary result Specimen: Blood Peripheral Updated: 05/19/251930 Culture No growth Imaging: CT Head Wo Contrast Result Date: 05/17/2025 IMPRESSION: 1.No acute intracranial hemorrhage, midline shift, or mass effect. 2.Left side the sinusitis. The left nasogastric tube is in place. > Dictated by Claire Ortiz MD, (development vice president). > Dictated by Instrument Technologist I, Tripp Pablo MD have personally reviewed and interpretedthis examination/study. > Interpreting Provider: Tripp Pablo MD on 05/17/2025 9:24 AM XR Abdomen Kub Portable Result Date: 05/17/2025 IMPRESSION: Enteric tube terminates in the gastric body. > Interpreting Provider: Felipe Munoz MD on 05/17/2025 9:[address] Chest Pe W Abd Pelvis W Cont Result Date: 05/15/2025 Impression: 1.No evidence of acute pulmonary embolism. There is a retained metallic wire within oneof the right inferior lobe pulmonary arteries, likely iatrogenic. 2.Cardiomegaly and a moderate-sized pericardial effusion. Reflux of contrast into the hepatic veins suggesting right heart dysfunction. 3.Interstitial pulmonary edema, small volume ascites and diffuse body wall edema suggesting hypervolemia. Preliminary findings were discussed with the patient's care provider, Dr Sil Cordero by Dr. Tom Dinh via telephone at 05/15/2025 8:24 PM with readback comprehension and verification. > Dictated by Tom Dinh DO, (development vice president). > Dictated by Instrument Technologist I, Ann-Marie Campa MD have personally reviewed and interpreted this examination/study. > Interpreting Provider: Ann-Marie Campa MD on 05/15/2025 10:20 PM XR CHEST 2VW Result Date: 05/15/2025 IMPRESSION: A linear wire-like density projects over the right perihilar region. Cardiomegaly. Likely enlarged pulmonary arteries. Mild interstitial edema. Trace pleural effusions. No pneumothorax. 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 Initially managed withnitroprusside gtt then discontinued, pt intermittently needing levophed for hypotension. ICU coursec/b inability to follow commands, will need to reassess when more awake. Neurological #Acute encephalopathy #Agitation - Pt noted to be obtunded at 4AM on 05/17, was given ativan earlier In the night for agitation - EEG with generalized slowing - sedation weaned off on 10AM - CT head 05/20 - no acute abnormalities PLAN: - ICU consulted, appreciate recs for sedation - cont to hold to assess for improvement in patient'smentation - Restarted precedex for agitation - Consider neuro consult - SBT per resp Sedation - titrate to RASS goal of 0 to -1 - Monitor mental status every hour and notify MD if any changes - Fall precautions, Seizure precautions, HOB elevated Cardiovascular: #Atrial fibrillation #Left atrial thrombus - Cont home xarelto, had not previously been getting due to agitation - RVR resolved after digoxin load - Unable to do DCCV d/t LA thrombus PLAN: - Cont xarelto - Cont metoprolol tartrate 25mg 6hrs; consider dec frequency/dose if bradycardic on precedex - Will need repeat CHANCE in 1 month #Acute decompensated HF with reduced EF 25% #Peripheral edema in BLE - TTE done yesterday - Furosemide IV TID given on day of admission - metop and aldactone held on admission as pt not taking oral meds - Mnaas removed - Levo discontinued PLAN: - Bumex dec from 4mg IV qd to 1mg po BID - Hold GDMT iso shock: holding spironactone, metop succ - Xavier hugger for hypothermia - Levo restarted last night, cont to wean #Severe TR - Pt prev seen by [facility] valve team who recommended outpt f/u for possible transcatheter TR eval PLAN: - Will discuss with structural; likely not to have inpt intervention but will need outpt f/u Hemodynamic monitoring - Titrate pressors to minimum amount to keep MAP goal of >60mmHg Pulmonary: #Acute hypoxemic respiratory failure - Pt had to be mechanically intubated on 05/17 AM for c/f airway protection PLAN: - Obtain ABGs prn to adjust vent settings; ICU c/s for vent mgmt - Titrate Fi O2 to the lowest needed to keep Sats > 92% - Keep HOB elevated 30 degrees, oral care, aspiration precautions GI: #Hyperbilirubinemia #Elevated alk phos - 2/2 congestive hepatopathy iso HF exacerbation - CTM CMP daily #Constipation - Inc miralax to BID, start senna qd - If no BM by tmrw, dulcolax suppository vs enema Nutrition: tube feeds started CTM BM GI prophyalxis: PPI Renal: #Hyponatremia, improved #Hyperkalemia - Pt hyperkalemic on arrival, shifted with insulin + dextrose and started on lokelma - Noted to be HypoNa, though baseline may be close to 130-132 - Likely hypervolemic hyponatremia iso cardiogenic shock and ADHF PLAN: - Continue diuresis with bumex as above - Discontinue lokelma - Replete other lytes as needed - q6hr RFP, Mag Electrolytes: Monitor every 6 hours and replace K if <4, Mg if <2, Phos if <2 Endocrine: #IDDM #Obesity - per notes from 04/19, home regimen is 17U lantus in AM, 12U TID AC + slide 0-10U - Noted to have hypoglycemic episode on M - BG has been ranging 220-300s on 05/20 PLAN: - Cont SSI 0-12U q4hrs, accuchecks q4hrs - Cont lantus 5U qhs Monitor accuchecks every 4 hours and use sliding scale to keep glucose between 140 - 180 #Hypothyroidism - Cont home levothyroxine I.D.: #Hypothermia #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 - Pt on cefadroxil 100mg BID for chronic ppx - TTE does not show any vegetations, though noted to have L atrial mass on CCTA 07/2024 - Became hypothermic on 05/17 - Infectious w/u negative so far (CXR, UA, Bcx) - 5d course cefepime finished on 05/22 PLAN: - Resume home cefadroxil Ellison culture if Tmax > 100.4 Heme/Onc: PARTH Transfusion Protocol: Hb < 7, Plt < 10 Code Status: Full Code Lines: Peripheral IV Left Antecubital (Active) Placement Date/Time: 05/15/25 1451 Size (Gauge): 20 G Orientation: Left Location: Antecubital Number of days: 1 Peripheral IV Anterior;Right (Active) Placement Date/Time: 05/16/25 2200 Size (Gauge): 20 G Orientation: Anterior;Right Number of days: 0 Peripheral IV Right Antecubital (Active) Placement Date/Time: 05/16/25 2300 Size (Gauge): 20 G Orientation: Right Location: Antecubital Number of days: 0 Enteral - Nasal/Oral Naso-gastric Nostril/Nare;Left (Active) Placement Date/Time: 05/17/25 0700 Type: Naso-gastric Tube Location: Nostril/Nare;Left Internal Length (cm): 60 Number of days: 0 ETT Endotracheal Tube Cuffed-inflated 7.5 MM (Active) Placement Date/Time: 05/17/25 0327 Person who placed: Michael JIMENES Mask Ventilation: easy mask Induction: Rapid Sequence Device: Endotracheal Tube Location: Oral Tube Type: Cuffed-inflated Tube size (MM): 7.5 MM Depth of insertion: 24 CM Measur... Number of days: 0 Arterial Line (Active) Placement Date/Time: 05/17/25 1100 Placed by: Wendi Scruggs Orientation: Right Site: radial Site Prep: Chlorhexidine Local Anesthetic Used?: No Securement Method: Sutured Procedure Tolerance: Well Number of days: 0 Midline 05/17/25 015 Right Brachial Vein (Active) Placement Date/Time: 05/17/25153 IV Catheter Size: (c) Other (Comments) Orientation: Right Location: Brachial Vein Site Prep: Chlorhexidine Placement Verification: Ultrasound Number of days: 0 Urethral Catheter (Active) Placement Date/Time: 05/17/25 0249 Catheter Type : Double lumen/two-way;Non-latex Catheter Balloon Inflated With: 10 mL Number of days: 0 Prophylaxis: Aspiration precautions w/ HOB elevation by 30 degrees GI prophyalxis w/ pantoprazole VTE prophyalxis w/ SCDs, xarelto Diet: DIET NPO Except: NO EXCEPTIONS DIET TUBE FEEDING CONTINUOUS Activity: Intubated and sedated Disposition: ICU Monitoring The above assessment and plan will be discussed with the attending. This note is not final until attested by attending physician. Shavon Caldwell MD 05/22/2025 8:27 AM 05/17/2025 8:27 AM [1] 0.9% NaCl 3 mL Intracatheter q8h albuterol-ipratropium 3 mL Inhalation q4h artificial tears Each Eye q8h [Held by Provider] busPIRone 10 mg Enteral Tube BID [START ON 05/23/2025] cefadroxil 500 mg Oral BID chlorhexidine 15 mL Mouth/Throat BID cyanocobalamin 500 mcg Enteral Tube QDAY empagliflozin 10 mg Oral QDAY [Held by Provider] escitalopram 10 mg Oral QDAY furosemide 40 mg Oral QDAY insulin aspart 0-18 Units Subcutaneous q4h insulin glargine 5 Units Subcutaneous AT BEDTIME levothyroxine 75 mcg Enteral Tube QAM magnesium sulfate 4 g Intravenous Once metoprolol tartrate IR 25 mg Enteral Tube q6h pantoprazole 40 mg Intravenous QDAY polyethylene glycol 3350 17 g Enteral Tube QDAY potassium phosphate 30 mmol Intravenous Once rivaroxaban 20 mg Enteral Tube QPM [Held by Provider] sodium zirconium cyclosilicate 5 g Enteral Tube TID AC [Held by Provider] spironolactone 12.5 mg Oral QDAY vitamin D3 5,000 Units Enteral Tube QDAY [2] norepinephrine, 0-0.4 mcg/kg/min, Last Rate: Stopped (05/22/25 0632) [3] SALINE LOCK, INSERT AND MAINTAIN AND 0.9% NaCl AND 0.9% NaCl acetaminophen albuterol HFA dextrose IV for hypoglycemia OR dextrose IV for hypoglycemia OR glucagon glucose (Diabetic Use) gel hydrOXYzine HCl Cosigned by Fidenico Rm MD at 05/27/2025 3:24 PM CDT Associated attestation - Fidencio Rm MD - 05/27/2025 3:24 PM CDT I have seen and examined the patient with the fellow/ resident and I agree with the findings and plan of care as documented by the fellow/ resident. Date of service is the date in the fellow/ resident's note. Fidencio Rm MD * Maryann Nielsen I., - 05/22/2025 8:21 AM CDT MICU consult Name: Loretta Penn [facility] Day: 7 ADMITTING/PRIMARY TEAM:CARDIOLOGY MICU CONSULTED FOR: ICU assistance/vent management SUBJECTIVE BRIEF HOSPITAL COURSE: Ms. 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 Initially admitted to floor for HFrEF exacerbation, started on IV diuretics. Hospital course c/b hypoNa, hyperK, hypoglycemia; transferred to cards service 05/17 and later to ICU for persistent agitation and encephalopathy requiring intubation. INTERVAL HISTORY: Per RN report, had followed some commands very weakly after significant prompting. I attempted to get patient to follow commands for me or even open eyes this AM, and she did not. On my arrival to room, patient was on PSV 13/7 from SBT this AM -- her volumes were only 230 so I switched her to PCMV 15/5 w/ rate 15. OBJECTIVE Temp: [98.3 ??F (36.8 ??C)-99.6 ??F (37.6 ??C)] 98.9 ??F (37.2 ??C) Pulse: [77-132] 92 Resp: [10-28] 11 Arterial Line BP #1: (0-260)/(0-164) 103/57 O2 %: [30 %-40 %] 40 % I/O last 2 completed shifts: In: 758.1 [I.V.:244.1; NG/GT:30] Out: 710 [Urine:710] General: Intubated, not on sedation HEENT: NC AT Cardio: borderline tachy Resp: Mildly coarse bilaterally, mechanically ventilated Abdomen: Soft ND Extremities: No edema Neuro: Off sedation, does not open eyes to verbal or tactile stimuli, does not follow commands, does withdraw to pain. ASSESSMENT & PLAN Critical care was necessary to treat or prevent life-threatening deterioration of the following -- Acute encephalopathy with respiratory failure requiring mechanical ventilation Hyperkalemia (POA: Yes) Hyperbilirubinemia (POA: Yes) Hyponatremia (POA: Yes) Transaminitis (POA: Yes) Elevated alkaline phosphatase level (POA: Yes) Acute on chronic congestive heart failure, unspecified heart failure type (HCC) (POA: Yes) Obesity with serious comorbidity, unspecified class, unspecified obesity type (POA: Yes) Demand ischemia (HCC) (POA: Yes) History of endocarditis (POA: Yes) TBI (traumatic brain injury) (HCC) (POA: Yes) Hypothyroidism (POA: Yes) Atrial fibrillation (HCC) (POA: Yes) Prolonged Q-T interval on ECG (POA: Yes) Pericardial effusion (HCC) (POA: Yes) Acute kidney injury (POA: Yes) Type 2 diabetes mellitus, without long-term current use of insulin (HCC) (POA: Yes) Shortness of breath (POA: Unknown) Other shock (HCC) (POA: Unknown) NEURO -- Sedation: Currently off continuous sedation. Would rec keeping off altogether as able to assess mental status. CTH without hemorrhage; does show small layering in sphenoid sinus. Primary team plans for neuro consult. -- Delirium ppx: Encourage normal sleep-wake cycle: lights on during day, lights off at night, frequent re-orientation, minimize sleep interruptions. Avoid sedating meds like benzos and antipsychotics -- Primary team holding home buspar and lexapro d/t encephalopathy and prolonged QTc. Would need repeat EKG for QTc before starting when encephalopathy improves. CV -- HFrEF in acute exacerbation; severe MR and TR. -- Afib on dig and xarelto. Primary service planned for DCCV 05/20 but aborted d/t clot. PULM -- Acute hypoxic respiratory failure in setting of encephalopathy, intubated 05/17. Remains mechanically ventilated d/t persistent encephalopathy. Currently on PCMV. -- Highly recommend lung protective ventilation, Vt 6-8 cc/kg, driving pressure < 13, plateau pressures < 30 -- Not a candidate for liberation d/t mental status GI -- Bowel velia -- still without BM, would escalate bowel velia. -- NPO w/ tube feeds RENAL -- Monitor renal function, lytes, I/O. Avoid nephrotoxic agents ENDO -- DM: Trend sugars, goal 140-180. Hypoglycemia protocol -- Hypothyroidism, continue home synthroid. ID -- Completed course of cefepime although all cx negative. Now back on home chronic abx ppx HEME/ONC -- Monitor H&H, transfuse for Hb < 7, plt < 10 (< 50 if bleeding, <30 if MCS) ETT since 05/17. Cordis since 05/17, consider d/c as not on pressors. A line since 05/17, consider d/c. Midline since 05/17. I spent 34 minutes in full attendance with this critically-ill patient. Time spent was exclusive ofseparately billed procedures, treating other patients, and teaching time. Pt. is at high risk for complications and morbidity or mortality Pt. is critically ill with vital organ impairment or failure There is high probability of imminent or life threatening deterioration in the patient's condition Time involved in the performance of separately billable procedures, teaching, reviewing education material was not counted towards critical care time. Date of service: 05/22/2025 Maryann Nielsen DO Pulmonary/Critical Care Medicine * Apurva Corral, Graduate Nurse - 05/22/2025 12:46 AM CDT Problem: Neurosensory - Adult Goal: Achieves stable or improved neurological status Description: INTERVENTIONS Outcome: Progressing Goal: Remains free of injury related to seizures activity Description: INTERVENTIONS: Outcome: Progressing Goal: Achieves maximal functionality and self care Description: INTERVENTIONS: Outcome: Progressing Problem: Respiratory - Adult Goal: Achieves optimal ventilation and oxygenation Description: INTERVENTIONS: Outcome: Progressing Problem: Cardiovascular - Adult Goal: Maintains optimal cardiac output and hemodynamic stability Description: INTERVENTIONS: Outcome: Progressing Goal: Absence of cardiac dysrhythmias or at baseline Description: INTERVENTIONS: Outcome: Progressing Problem: Skin/Tissue Integrity - Adult Goal: Skin integrity remains intact Description: INTERVENTIONS: Outcome: Progressing Goal: Incisions, wounds, or drain sites healing without S/S of infection Description: INFECTIONS: Outcome: Progressing Goal: Oral mucous membranes remain intact Description: INTERVENTIONS: Outcome: Progressing Problem: Neurovascular Musculoskeletal - Adult Goal: Return mobility to safest level of function Description: INTERVENTIONS: Outcome: Progressing Goal: Maintain proper alignment of affected body part Description: INTERVENTIONS: Outcome: Progressing Goal: Return ADL status to a safe level of function Description: INTERVENTIONS: Outcome: Progressing Goal: Absence or reduction of edema Description: INTERVENTIONS Outcome: Progressing Goal: Maintains or improves tissue perfusion Description: INTERVENTIONS Outcome: Progressing Problem: Genitourinary - Adult Goal: Maintains or returns to baseline genitourinary function Description: INTERVENTIONS: Outcome: Progressing Goal: Urinary catheter remains patent Description: INTERVENTIONS: Outcome: Progressing Problem: Infection - Adult Goal: Infections are decreased or avoided Description: INTERVENTIONS: Outcome: Progressing Problem: Metabolic/Fluid and Electrolytes - Adult Goal: Electrolytes maintained within normal limits Description: INTERVENTIONS: Outcome: Progressing Goal: Hemodynamic stability and optimal renal function maintained Description: INTERVENTIONS: Outcome: Progressing Goal: Glucose maintained within prescribed range Description: INTERVENTIONS: Outcome: Progressing Problem: Hematologic - Adult Goal: Maintains hematologic stability Description: INTERVENTIONS: Outcome: Progressing Problem: Pain/Discomfort Goal: Patient exhibits reduced pain/discomfort as evidenced by pain scores Outcome: Progressing Goal: Patient uses pharmacological and non-pharmacological pain management strategies. Outcome: Progressing Goal: Patient verbalizes acceptable level of pain relief and ability to engage in desired activity. Outcome: Progressing Problem: Restraint Safety Goal: Free from restraint(s) Description: INTERVENTIONS: Outcome: Progressing Goal: Remains free of injury from restraints Description: INTERVENTIONS: Outcome: Progressing Problem: Fall Risk Goal: Fall risk and fall related injury risk are minimized (interventions related to the fall risk can be found in the flowsheet documentation) Outcome: Progressing Problem: Gastrointestinal - Adult Goal: Minimal or absence of nausea and vomiting Description: INTERVENTIONS: Outcome: Progressing Goal: Maintains or returns to baseline bowel function Description: INTERVENTIONS: Outcome: Progressing Goal: Maintains adequate nutritional intake Description: INTERVENTIONS: Outcome: Progressing Problem: Anxiety Goal: Will report anxiety at manageable levels Description: INTERVENTIONS Outcome: Progressing Problem: Coping Goal: Patient/Healthcare Agent able to verbalize concerns and demonstrate effective coping strategies Description: INTERVENTIONS Outcome: Progressing Problem: Decision Making Goal: Patient/Healthcare Agent able to effectively weigh alternatives and participate in decision making related to treatment and care. Description: INTERVENTIONS Outcome: Progressing Problem: Behavior Goal: Pt/Family maintain appropriate behavior and adhere to behavioral management agreement, if implemented Description: INTERVENTIONS Outcome: Progressing Problem: Depression/Self Harm Goal: Effect of psychiatric condition will be minimized and patient will be protected from self harm Description: INTERVENTIONS Outcome: Progressing Problem: Substance Abuse/Detox Goal: Will have no detox symptoms and will verbalize plan for changing drug- related behavior Description: INTERVENTIONS Outcome: Progressing Problem: Oral Intake: Inadequate oral intake Goal: Total intake will meet estimated nutrient needs Outcome: Progressing * Shavon Caldwell MD - 05/21/2025 9:18 AM CDT CARDIOLOGY SERVICE CCU PROGRESS NOTE Admission Date: 05/15/2025 Patient: Loretta Penn (64 year old female) Code Status: Full Code Interval History: Lactic decreasing after 250 cc bolus last night Briefly on levophed overnight, weaned off this AM Per ICU pt is not following commands and not responding to verbal stimuli - will cont mech vent at this time. If mentation does not improve by tomorrow, will consult neurology History of Present Illness: Loretta Penn is a 64 year-old female with past medical history significant for HFrEF (EF 25% 02/2025), severe TR, 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 Pt was initially admitted to medicine service and cardiology consulted regarding severity of heart failure and other valvular issues. On admission, labs significant for BNP 2209, trop 24-->23, Na 122, K 6.1, Cr 1.48,alk phos 365, bili 7.7. Pt was shifted with insulin + dextrose, given patiromer and. She was started on IV furosemide TID for acute HFrEF. EKG showing Qtc prolongation. Pt noted to be hypoglycemic in40s on 05/16 AM, hypoglycemia protocol initiated. Patient transferred to primary cardiology service on 05/16 d/t concern that patient may develop cardiogenic shock. On 05/17, decision was made to proceed with light sedation in order to be able to provide meds to pt given that she was not taking any orals d/t sedation; additionally Na in 121-122 range and pt would need more frequent lab draws for mgmt. On transfer to ICU, pt increasing agitated and given IV ativan. Then noted to be obtunded, intubated for airway protection. She was given hypertonic saline 2x, and was also briefly on levophed for BP support. ICU team c/s for mech vent management. Started on nitroprusside drip, but then discontinued d/t no proper BP measurements. Palliative consulted regarding family's understanding of medical conditions and difficult decision making. A line and central line placed. Sedation was discontinued on 05/19 AM, pt responding to name but not following commands. Noted to have afib with RVR overnight, proceeded with CHANCE DCCV. On CHANCE on 05/20, pt noted to have LA thrombus, DCCV was aborted. Lactic increasing on 05/20, given 250cc bolus for c/f hypovolemic shock. Medical Hx: Per chart review, patient follows with [facility] primarily. Of note, patient recently admitted at [facility] forHF exacerbation in 02/2025; per chart review, patient was previously admitted previously at [facility] for MAYS and othorpnea + fluid retention for 2-3 weeks and then transferred to [facility]. [facility] radar systems engineer Dr. Flores increased her lasix from 40qd to BID, added spironolactone but had no improvement. BNPelevated to 2800s, at that time, started on IV bumex. EKG showing afib. Pt received diuresis at [facility] then GDMT was optimized to Entresto 24-26 (0.5 tab) BID, metoprolol XR 100 mg daily, spironolactone 25 mg daily, and Jardiance 10 mg daily. Valve team was consulted during this hospitalization, recommending clinic follow-up without transcatheter tricuspid valve interventions since patient is a poor candidate due to chronic tricuspid valve endocarditis and severe non-ischemic cardiomyopathy with LVEF 25%. Current Medications: Scheduled: Medications[1] Continuous: Medications[2] PRN: Medications[3] Vital Signs: Temp: [98.4 ??F (36.9 ??C)-99 ??F (37.2 ??C)] 98.4 ??F (36.9 ??C) Pulse: [113-145] 139 Resp: [12-18] 16 Arterial Line BP #1: (92-121)/(43-60) 110/54 O2 %: [30 %] 30 % Physical Exam: General: Intubated and sedated, no acute distress Head: normocephalic, atraumatic Eyes: conjunctivae clear, extraocular muscles intact Mouth/Throat: ETT in place CV: regular rate and rhythm, no murmurs appreciated Resp: clear to auscultation bilaterally, no wheezes or crackles heard Abd: soft, nontender, nondistended, normoactive bowel sounds Extremities: no lower extremity edema, no cyanosis Skin: BLE pitting edema 2+ Neuro: moving all extremities well, no focal deficits Lab Results: Labs have been personally reviewed and are remarkable for the following: CBC: Recent Labs Component Name 05/21/25 0329 05/20/25 0306 05/19/25 0400 WBC 9.1 6.5 5.2 HGB 13.8 14.1 15.0 HCT 40.2 41.3 41.4 MCV 95.5 98.1* 94.1 Coagulation Panel: Recent Labs Component Name 05/15/25 1454 PT 29.5* INR 2.9 BMP: Recent Labs Component Name 05/21/25 0329 05/20/25 1646 05/20/25 0845 NA 135* 134* 132* 132* POTASSIUM 3.7 3.5 4.0 4.0 CL 97* 95* 96* 96* CO2 29 28 29 29 BUN 29* 27* 26 26 CREATININE 0.96 1.01* 1.02* 1.02* CALCIUM 8.8 8.4 8.2* 8.2* Recent Labs Component Name 05/21/25 0329 05/20/25 2141 05/20/25 1646 MAGNESIUM 1.9 2.0 2.0 Recent Labs Component Name 05/20/25 1646 05/20/25 0845 05/20/25 0306 PHOS 4.8 2.4* 2.7* Hepatic Panel: Recent Labs Component Name 05/21/25 0329 05/20/25 1646 05/20/25 0845 05/18/25 0933 05/18/25 0305 05/17/25 1751 05/15/25 2257 05/15/252019 AST 37* - 37* - - 56* - - ALT - - 35 - - ALKPHOS 254* - 259* - - 286* - - TBILI 9.9* - 9.4* - - 6.1* - 7.0* DBILI - - - - 4.4* - - 4.9* IBILI - - - - - - - 2.1 ALB 2.2* 2.3* 2.2* 2.2* - 2.6* 2.6* - - - = values in this interval not displayed. ABG: Recent Labs Component Name 05/21/25 0844 05/20/25 1210 05/20/25 0845 05/20/25 0306 PH 7.45* 7.42 7.43 7.41 7.38 PCO2 - 49* 51* 51* PO2 - 73* 77* 97 Amylase/Lipase: Invalid input(s): AMYL, LIPA Thyroid Studies: No results for input(s): TSH, T4 in the last 55561 hours. Cardiac Enzymes: No results for input(s): CKTOTAL, CKMB, TROPONINI in the last 93648 hours. Invalid input(s): CKMBINDEX Lipid Panel: No results for input(s): LDLCALC, HDL in the last 59465 hours. Microbiology: Microbiology Results (Displays last 21 days for this encounter ONLY) Procedure Component Value - Date/Time CULTURE SPUTUM+GRAM STAIN [[id number]] Collected: 05/19/25 1620 Lab Status: Final result Specimen: Microbiology from Sputum Updated: 05/21/25 0808 Culture Light normal oropharyngeal alisa Gram Stain Moderate Gram-negative bacilli Moderate Gram-positive cocci Light Yeast >= 25 per low power field Polymorphonuclear cells <10 per low power field Squamous epithelial cells CULTURE BLOOD [[id number]] (Normal) Collected: 05/17/25 1440 Lab Status: Preliminary result Specimen: Blood Peripheral Updated: 05/19/25 193 Culture No growth MRSA PCR [[id number]] (Normal) Collected: 05/17/25 1440 Lab Status: Final result Specimen: Microbiology from Nasal Updated: 05/17/25 210 MRSA DNA by PCR Not detected Narrative: Methicillin-resistant Staphylococcus aureus (MRSA) DNA is not detected (presumed not colonized withMRSA). CULTURE BLOOD [[id number]] (Normal) Collected: 05/17/25 1436 Lab Status: Preliminary result Specimen: Blood Peripheral Updated: 05/19/25 193 Culture No growth Imaging: CT Head Wo Contrast Result Date: 05/17/2025 IMPRESSION: 1.No acute intracranial hemorrhage, midline shift, or mass effect. 2.Left side the sinusitis. The left nasogastric tube is in place. > Dictated by Claire Ortiz MD, (development vice president). > Dictated by Instrument Technologist I, Tripp Pablo MD have personally reviewed and interpretedthis examination/study. > Interpreting Provider: Tripp Pablo MD on 05/17/2025 9:24 AM XR Abdomen Kub Portable Result Date: 05/17/2025 IMPRESSION: Enteric tube terminates in the gastric body. > Interpreting Provider: Felipe Munoz MD on 05/17/2025 9:[address] Chest Pe W Abd Pelvis W Cont Result Date: 05/15/2025 Impression: 1.No evidence of acute pulmonary embolism. There is a retained metallic wire within oneof the right inferior lobe pulmonary arteries, likely iatrogenic. 2.Cardiomegaly and a moderate-sized pericardial effusion. Reflux of contrast into the hepatic veins suggesting right heart dysfunction. 3.Interstitial pulmonary edema, small volume ascites and diffuse body wall edema suggesting hypervolemia. Preliminary findings were discussed with the patient's care provider, Dr Sil Cordero by Dr. Tom Dinh via telephone at 05/15/2025 8:24 PM with readback comprehension and verification. > Dictated by Tom Dinh DO, (development vice president). > Dictated by Instrument Technologist I, Ann-Marie Campa MD have personally reviewed and interpreted this examination/study. > Interpreting Provider: Ann-Marie Campa MD on 05/15/2025 10:20 PM XR CHEST 2VW Result Date: 05/15/2025 IMPRESSION: A linear wire-like density projects over the right perihilar region. Cardiomegaly. Likely enlarged pulmonary arteries. Mild interstitial edema. Trace pleural effusions. No pneumothorax. > Interpreting Provider: Felipe Munoz MD on 05/15/2025 3:03 PM ASSESSMENT/PLAN: Neurological #Acute encephalopathy #Agitation - Pt noted to be obtunded at 4AM on 05/17, was given ativan earlier In the night for agitation - EEG with generalized slowing - sedation weaned off on M - CT head 05/20 - no acute abnormalities PLAN: - ICU consulted, appreciate recs for sedation - cont to hold to assess for improvement in patient'smentation - Consider neuro consult in AM - SBT per resp Sedation - titrate to RASS goal of 0 to -1 - Monitor mental status every hour and notify MD if any changes - Fall precautions, Seizure precautions, HOB elevated Cardiovascular: #C/f cardiogenic shock vs mixed shock #Hypothermia #Acute decompensated HF with reduced EF 25% #Peripheral edema in BLE - TTE done yesterday - Furosemide IV TID given on day of admission - metop and aldactone held on admission as pt not taking oral meds - Manas removed - Levo discontinued PLAN: - Cont bumex 4mg daily - Hold GDMT iso shock: holding spironactone, metop succ - Xavier hugger for hypothermia - Levo discontinued #Severe TR - Pt prev seen by [facility] valve team who recommended outpt f/u for possible transcatheter TR eval PLAN: - Will discuss with structural #Atrial fibrillation #Left atrial thrombus - Cont home xarelto, had not previously been getting due to agitation - RVR resolved after digoxin load - Unable to do DCCV d/t LA thrombus PLAN: - Cont xarelto - Start metoprolol tartrate 25mg 6hrs - Will need repeat CHANCE in 1 month Hemodynamic monitoring - Titrate pressors to minimum amount to keep MAP goal of >60mmHg Pulmonary: #Acute hypoxemic respiratory failure - Pt had to be mechanically intubated on 05/17 AM for c/f airway protection PLAN: - Obtain ABGs prn to adjust vent settings; ICU c/s for vent mgmt - Titrate Fi O2 to the lowest needed to keep Sats > 92% - Keep HOB elevated 30 degrees, oral care, aspiration precautions GI: #Hyperbilirubinemia #Elevated alk phos - 2/2 congestive hepatopathy iso HF exacerbation - CTM CMP daily Nutrition: tube feeds started CTM BM GI prophyalxis: PPI Renal: #Hyponatremia, improved #Hyperkalemia - Pt hyperkalemic on arrival, shifted with insulin + dextrose and started on lokelma - Noted to be HypoNa, though baseline may be close to 130-132 - Likely hypervolemic hyponatremia iso cardiogenic shock and ADHF PLAN: - Continue diuresis with bumex as above - Cont lokelma, hold as needed - Replete other lytes as needed - q6hr RFP, Mag Electrolytes: Monitor every 6 hours and replace K if <4, Mg if <2, Phos if <2 Endocrine: #IDDM #Obesity - per notes from 04/19, home regimen is 17U lantus in AM, 12U TID AC + slide 0-10U - Noted to have hypoglycemic episode on M - BG has been ranging 220-300s on 05/20 PLAN: - Cont SSI 0-12U q4hrs, accuchecks q4hrs - Start lantus 5U qhs Monitor accuchecks every 4 hours and use sliding scale to keep glucose between 140 - 180 #Hypothyroidism - Cont home levothyroxine I.D.: #Hypothermia #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 - Pt on cefadroxil 100mg BID for chronic ppx - TTE does not show any vegetations, though noted to have L atrial mass on CCTA 07/2024 - Became hypothermic on 05/17 - Infectious w/u negative so far (CXR, UA, Bcx) PLAN: - Resume home cefadroxil after cefepime completed - Cont IV cefepime x5d (finishing tmrw) Ellison culture if Tmax > 100.4 Heme/Onc: PARTH Transfusion Protocol: Hb < 7, Plt < 10 Code Status: Full Code Lines: Peripheral IV Left Antecubital (Active) Placement Date/Time: 05/15/25 1451 Size (Gauge): 20 G Orientation: Left Location: Antecubital Number of days: 1 Peripheral IV Anterior;Right (Active) Placement Date/Time: 05/16/25 2200 Size (Gauge): 20 G Orientation: Anterior;Right Number of days: 0 Peripheral IV Right Antecubital (Active) Placement Date/Time: 05/16/25 2300 Size (Gauge): 20 G Orientation: Right Location: Antecubital Number of days: 0 Enteral - Nasal/Oral Naso-gastric Nostril/Nare;Left (Active) Placement Date/Time: 05/17/25 0700 Type: Naso-gastric Tube Location: Nostril/Nare;Left Internal Length (cm): 60 Number of days: 0 ETT Endotracheal Tube Cuffed-inflated 7.5 MM (Active) Placement Date/Time: 05/17/25 0327 Person who placed: Michael JIMENES Mask Ventilation: easy mask Induction: Rapid Sequence Device: Endotracheal Tube Location: Oral Tube Type: Cuffed-inflated Tube size (MM): 7.5 MM Depth of insertion: 24 CM Measur... Number of days: 0 Arterial Line (Active) Placement Date/Time: 05/17/25 1100 Placed by: Wendi Scruggs Orientation: Right Site: radial Site Prep: Chlorhexidine Local Anesthetic Used?: No Securement Method: Sutured Procedure Tolerance: Well Number of days: 0 Midline 05/17/25 0154 Right Brachial Vein (Active) Placement Date/Time: 05/17/25 0154 IV Catheter Size: (c) Other (Comments) Orientation: Right Location: Brachial Vein Site Prep: Chlorhexidine Placement Verification: Ultrasound Number of days: 0 Urethral Catheter (Active) Placement Date/Time: 05/17/25 0249 Catheter Type : Double lumen/two-way;Non-latex Catheter Balloon Inflated With: 10 mL Number of days: 0 Prophylaxis: Aspiration precautions w/ HOB elevation by 30 degrees GI prophyalxis w/ pantoprazole VTE prophyalxis w/ SCDs, Eliquis Diet: DIET NPO Except: NO EXCEPTIONS DIET TUBE FEEDING CONTINUOUS Activity: Intubated and sedated Disposition: ICU Monitoring The above assessment and plan will be discussed with the attending. This note is not final until attested by attending physician. Shavon Caldwell MD 05/21/2025 9:18 AM 05/17/2025 9:18 AM [1] 0.9% NaCl 3 mL Intracatheter q8h albuterol-ipratropium 3 mL Inhalation q4h artificial tears Each Eye q8h bumetanide 4 mg Intravenous QDAY [Held by Provider] busPIRone 10 mg Enteral Tube BID cefepime 2 g Intravenous q8h chlorhexidine 15 mL Mouth/Throat BID cyanocobalamin 500 mcg Enteral Tube QDAY [Held by Provider] escitalopram 10 mg Oral QDAY insulin aspart 0-18 Units Subcutaneous q4h insulin glargine 5 Units Subcutaneous AT BEDTIME levothyroxine 75 mcg Enteral Tube QAM [Held by Provider] metoprolol succinate XL 24hr 100 mg Oral QDAY pantoprazole 40 mg Intravenous QDAY polyethylene glycol 3350 17 g Enteral Tube QDAY rivaroxaban 20 mg Enteral Tube QPM [Held by Provider] sodium zirconium cyclosilicate 5 g Enteral Tube TID AC [Held by Provider] spironolactone 12.5 mg Oral QDAY vitamin D3 5,000 Units Enteral Tube QDAY [2] [Held by Provider] dexmedeTOMIDine, 0-1.5 mcg/kg/hr, Last Rate: Stopped (05/19/25 1036) [Held by Provider] propofol, 0-50 mcg/kg/min, Last Rate: Stopped (05/18/25 1704) [3] SALINE LOCK, INSERT AND MAINTAIN AND 0.9% NaCl AND 0.9% NaCl acetaminophen albuterol HFA dextrose IV for hypoglycemia OR dextrose IV for hypoglycemia OR glucagon glucose (Diabetic Use) gel hydrOXYzine HCl Cosigned by Jefry Arizmendi MD at 05/22/2025 8:49 AM CDT Associated attestation - Jefry Arizmendi MD - 05/22/2025 8:49 AM CDT ATTENDING PHYSICIAN NOTE Patient seen and examined. Objective data including vitals, laboratory results and pertinent imaging studies were independently reviewed by me. I confirm history, exam, assessment and plan in the resident's note. Date of service is the date of the resident's note. Jefry Arizmendi MD Business Unit Manager of Internal Medicine Director, Echo Lab [facility] * Maryann Nielsen I., DO - 05/21/2025 8:04 AM CDT MICU consult Name: Loretta Penn [facility] Day: 6 ADMITTING/PRIMARY TEAM:CARDIOLOGY MICU CONSULTED FOR: ICU assistance/vent management SUBJECTIVE BRIEF HOSPITAL COURSE: Ms. 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 Initially admitted to floor for HFrEF exacerbation, started on IV diuretics. Hospital course c/b hypoNa, hyperK, hypoglycemia; transferred to cards service 05/17 and later to ICU for persistent agitation and encephalopathy requiring intubation. INTERVAL HISTORY: Remains ventilated, mental status has not improved. Still not awakening or following but will withdraw to pain. CTH completed yesterday. Primary service planned for DCCV but noted clot, did not proceed. OBJECTIVE Temp: [98.4 ??F (36.9 ??C)-99 ??F (37.2 ??C)] 98.4 ??F (36.9 ??C) Pulse: [113-145] 139 Resp: [12-18] 15 Arterial Line BP #1: (92-121)/(43-60) 108/55 O2 %: [30 %-40 %] 30 % I/O last 2 completed shifts: In: 816.9 [I.V.:606.9; NG/GT:70] Out: 1135 [Urine:1135] General: Intubated, not on sedation HEENT: NC AT Cardio: Tachy, irregular Resp: Coarse bilaterally, mechanically ventilated Abdomen: Soft ND Extremities: No edema Neuro: Off sedation, does not open eyes to verbal or tactile stimuli, does not follow commands, does withdraw to pain. ASSESSMENT & PLAN Critical care was necessary to treat or prevent life-threatening deterioration of the following -- Acute encephalopathy with respiratory failure requiring mechanical ventilation Hyperkalemia (POA: Yes) Hyperbilirubinemia (POA: Yes) Hyponatremia (POA: Yes) Transaminitis (POA: Yes) Elevated alkaline phosphatase level (POA: Yes) Acute on chronic congestive heart failure, unspecified heart failure type (HCC) (POA: Yes) Obesity with serious comorbidity, unspecified class, unspecified obesity type (POA: Yes) Demand ischemia (HCC) (POA: Yes) History of endocarditis (POA: Yes) TBI (traumatic brain injury) (HCC) (POA: Yes) Hypothyroidism (POA: Yes) Atrial fibrillation (HCC) (POA: Yes) Prolonged Q-T interval on ECG (POA: Yes) Pericardial effusion (HCC) (POA: Yes) Acute kidney injury (POA: Yes) Type 2 diabetes mellitus, without long-term current use of insulin (HCC) (POA: Yes) Shortness of breath (POA: Unknown) Other shock (HCC) (POA: Unknown) NEURO -- Sedation: Currently off continuous sedation. Would rec keeping off altogether as able to assess mental status. CTH without hemorrhage; does show small layering in sphenoid sinus. -- Delirium ppx: Encourage normal sleep-wake cycle: lights on during day, lights off at night, frequent re-orientation, minimize sleep interruptions. Avoid sedating meds like benzos and antipsychotics -- Primary team holding home buspar and lexapro d/t encephalopathy and prolonged QTc. Would need repeat EKG for QTc before starting when encephalopathy improves. CV -- HFrEF in acute exacerbation; severe MR and TR. Diuresis as per cards but can consider decreasingd/t net negative status. -- Afib on dig and xarelto. Primary service planned for DCCV 05/20 but aborted d/t clot. PULM -- Acute hypoxic respiratory failure in setting of encephalopathy, intubated 05/17. Remains mechanically ventilated d/t persistent encephalopathy. Currently on SCMV. -- Highly recommend lung protective ventilation, Vt 6-8 cc/kg, driving pressure < 13, plateau pressures < 30 -- Tolerating SBT however mentation is keeping her from being liberated from ventilator. GI -- Bowel velia -- still without BM, would escalate bowel velia. -- NPO w/ tube feeds RENAL -- Monitor renal function, lytes, I/O. Avoid nephrotoxic agents ENDO -- DM: Trend sugars, goal 140-180. Hypoglycemia protocol -- Hypothyroidism, continue home synthroid. ID -- Currently on cefepime per primary -- SpCx from 05/19 in process, currently prelim w/ moderate GPB and GPC. Follow results and tailor abx. HEME/ONC -- Monitor H&H, transfuse for Hb < 7, plt < 10 (< 50 if bleeding, <30 if MCS) ETT since 05/17. Cordis since 05/17, consider d/c as not on pressors. A line since 05/17, consider d/c. Midline since 05/17. Stephens since 05/17, consider d/c and trial external cath. I spent 33 minutes in full attendance with this critically-ill patient. Time spent was exclusive ofseparately billed procedures, treating other patients, and teaching time. Pt. is at high risk for complications and morbidity or mortality Pt. is critically ill with vital organ impairment or failure There is high probability of imminent or life threatening deterioration in the patient's condition Time involved in the performance of separately billable procedures, teaching, reviewing education material was not counted towards critical care time. Date of service: 05/21/2025 Maryann Nielsen DO Pulmonary/Critical Care Medicine * Darya Hamilton RCP - 05/21/2025 7:03 AM CDT Pt completed SBT successfully. All vitals and alarm settings remained in normal range. Pt will continue to be monitored and documented. * Radha Farrell RN - 05/20/2025 10:16 PM CDT Problem: Neurosensory - Adult Goal: Achieves stable or improved neurological status Description: INTERVENTIONS Outcome: Progressing Goal: Remains free of injury related to seizures activity Description: INTERVENTIONS: Outcome: Progressing Goal: Achieves maximal functionality and self care Description: INTERVENTIONS: Outcome: Progressing Problem: Respiratory - Adult Goal: Achieves optimal ventilation and oxygenation Description: INTERVENTIONS: Outcome: Progressing Problem: Cardiovascular - Adult Goal: Maintains optimal cardiac output and hemodynamic stability Description: INTERVENTIONS: Outcome: Progressing Goal: Absence of cardiac dysrhythmias or at baseline Description: INTERVENTIONS: Outcome: Progressing Problem: Skin/Tissue Integrity - Adult Goal: Skin integrity remains intact Description: INTERVENTIONS: Outcome: Progressing Goal: Incisions, wounds, or drain sites healing without S/S of infection Description: INFECTIONS: Outcome: Progressing Goal: Oral mucous membranes remain intact Description: INTERVENTIONS: Outcome: Progressing Problem: Neurovascular Musculoskeletal - Adult Goal: Return mobility to safest level of function Description: INTERVENTIONS: Outcome: Progressing Goal: Maintain proper alignment of affected body part Description: INTERVENTIONS: Outcome: Progressing Goal: Return ADL status to a safe level of function Description: INTERVENTIONS: Outcome: Progressing Goal: Absence or reduction of edema Description: INTERVENTIONS Outcome: Progressing Goal: Maintains or improves tissue perfusion Description: INTERVENTIONS Outcome: Progressing Problem: Genitourinary - Adult Goal: Maintains or returns to baseline genitourinary function Description: INTERVENTIONS: Outcome: Progressing Goal: Urinary catheter remains patent Description: INTERVENTIONS: Outcome: Progressing Problem: Infection - Adult Goal: Infections are decreased or avoided Description: INTERVENTIONS: Outcome: Progressing Problem: Metabolic/Fluid and Electrolytes - Adult Goal: Electrolytes maintained within normal limits Description: INTERVENTIONS: Outcome: Progressing Goal: Hemodynamic stability and optimal renal function maintained Description: INTERVENTIONS: Outcome: Progressing Goal: Glucose maintained within prescribed range Description: INTERVENTIONS: Outcome: Progressing Problem: Hematologic - Adult Goal: Maintains hematologic stability Description: INTERVENTIONS: Outcome: Progressing Problem: Pain/Discomfort Goal: Patient exhibits reduced pain/discomfort as evidenced by pain scores Outcome: Progressing Goal: Patient uses pharmacological and non-pharmacological pain management strategies. Outcome: Progressing Goal: Patient verbalizes acceptable level of pain relief and ability to engage in desired activity. Outcome: Progressing Problem: Restraint Safety Goal: Free from restraint(s) Description: INTERVENTIONS: Outcome: Progressing Goal: Remains free of injury from restraints Description: INTERVENTIONS: Outcome: Progressing Problem: Fall Risk Goal: Fall risk and fall related injury risk are minimized (interventions related to the fall risk can be found in the flowsheet documentation) Outcome: Progressing Problem: Gastrointestinal - Adult Goal: Minimal or absence of nausea and vomiting Description: INTERVENTIONS: Outcome: Progressing Goal: Maintains or returns to baseline bowel function Description: INTERVENTIONS: Outcome: Progressing Goal: Maintains adequate nutritional intake Description: INTERVENTIONS: Outcome: Progressing Problem: Anxiety Goal: Will report anxiety at manageable levels Description: INTERVENTIONS Outcome: Progressing Problem: Coping Goal: Patient/Healthcare Agent able to verbalize concerns and demonstrate effective coping strategies Description: INTERVENTIONS Outcome: Progressing Problem: Decision Making Goal: Patient/Healthcare Agent able to effectively weigh alternatives and participate in decision making related to treatment and care. Description: INTERVENTIONS Outcome: Progressing Problem: Behavior Goal: Pt/Family maintain appropriate behavior and adhere to behavioral management agreement, if implemented Description: INTERVENTIONS Outcome: Progressing Problem: Depression/Self Harm Goal: Effect of psychiatric condition will be minimized and patient will be protected from self harm Description: INTERVENTIONS Outcome: Progressing Problem: Substance Abuse/Detox Goal: Will have no detox symptoms and will verbalize plan for changing drug- related behavior Description: INTERVENTIONS Outcome: Progressing Problem: Oral Intake: Inadequate oral intake Goal: Total intake will meet estimated nutrient needs Outcome: Progressing * Hina Prajapati, JOHN-ORNAMENTAL MACHINE OPERATOR - 05/20/2025 5:06 PM CDT Palliative Medicine Brief Progress Note Loretta Penn Age: [age] year old Date of : 1960 Date of Admission: 05/15/2025 Brief HPI: 64 y/o F with significnat PMH of HFrEF, AICD removal 07/2024 2/2 infected ICD lead, severe TR, MSSA TV endocarditis on cefedroxil, a fib on xarelto, intellecutal disability 2/2 TBI, HTN, DM 2, hypothyropidism. Per chart review, patient follows with [facility] primarily. Of note, patient recently admitted at [facility] forHF exacerbation in 02/2025; per chart review, patient transferred to [facility] from [facility] for othorpnea + fluid retention for 2-3 weeks. Pt Lasix increased, added spironolactone but had no improvement. BNP elevated to 2800s, at that time, started on IV bumex. EKG showing afib. Echo showing EF 40- 45%. GDMT was optimized to Entresto 24-26 (0.5 tab) BID, metoprolol XR 100 mg daily, spironolactone 25 mg daily, and Jardiance 10 mg daily. Pt presented to [facility] on 05/15 with edema. Labs notable for hyponatremia 122, K of 6.1, INR 2.9, AST 59, Cr 1.48, Tbili 7.0, BNP 2200. CT CAP with moderate pericardial effusion, right heart dysfunction,body wall edema, pulmonary edema. Cardiology team spoke to pt's sister mounika. Per sister, patient can normally get agitated at home, usually over her food. Sister is asking whether we can fix her after he volume status is controlled. Appears to have poor understanding into current situation as family admits that patient will do whatever Loretta wants to do, including eating high salt foods that will worsen her HF exacerbations. Discussed possible need for sedation if patient is not amenable to lab draws, given that per nursing 4 people had to hold patient to get BP taken. Family does not want her to get sedated, but understands the need for it. Pls confirm with family before proceeding with any IV/sedation measures. Pn 05/17, patient with change in mental status, obtunded. Concern for airway protection. Pt intubated, moved to ICU. Palliative care was consulted to assist with complex medical decision making. Plan for CHANCE with possible cardioversion as pt in a fib on 05/20. Sedation has been weaned. Minimally responsive. Will consider CTH if needed. Assessment: Patient visited at bedside. Patient's sisters Mounika and Dilia present at time of visit. Patient remained intubated, no longer on sedation. She opened her eyes to voice, but did not follow commandsfor me. Patient did not appear to be in acute distress. I spoke to her family at bedside. After exploring background and goals of care further, patient's family endorsed that they believe that her heart could possibly be fixed. Upon further exploration, patient's family endorsed that previously they were told that her valve could be fixed, with a minimally invasive procedure through her groin. They believe that if she could undergo this procedure, herheart we will do much better overall. They endorsed that at home, it is challenging to keep her on a dietary restriction. Food brings her jasmina in her life. I endorsed to family that I would reach out to the primary team regarding their thoughts on and plans for procedure for her valve. I endorsed that after obtaining this information, it would be beneficial to continue goals of care conversations. Plan: Palliative care currently awaiting information from Cardiology team regarding any possibility for procedure to TV. After obtaining this information, palliative care will continue goals of care with family. Thank you for this consult. Palliative will continue to follow but please contact us with additional or new questions. 30 minutes spend reviewing chart, visiting pt and family at bedside, DW family, DW cardiology team,and documenting KYA Reyes 05/20/2025 5:07 PM Palliative Care Nurse Pracitioner * Torie Carranza RN - 05/20/2025 4:14 PM CDT Care Coordination Progress Note Expected Discharge Date: 05/24/2025 Discharge Plan: Intubated, diuresing with IV bumex, receiving IV cefepime, not medically ready for discharge. CM will continue to follow for additional d/c needs. Family Support (Name and Phone): Extended Emergency Contact Information Primary Emergency Contact: Mounika Rice Address: [address] [place] [address] Mobile Relation: Sister Secondary Emergency Contact: Laura Mcginnis ([facility]) Mobile Relation: Sister Transportation at Discharge: Family: READMISSION RISK SCORE is 15 at 4:14 PM 05/20/2025.: Name: Torie Carranza RN * Shavon Caldwell MD - 05/20/2025 3:38 PM CDT CARDIOLOGY SERVICE CCU PROGRESS NOTE Admission Date: 05/15/2025 Patient: Loretta Penn (64 year old female) Code Status: Full Code Interval History: Overnight, had afib with RVR, received digoxin load Planning for CHANCE with DCCV today Bumex dec to 4mg once daily over this wknd Pt opening eyes to name, deep sternal rub - otherwise not following commands. Now off sedation for 24hrs, will continue to hold sedation to assess mentation. CT head w/o ordered for further w/u Palliative spoke with family at bedside this AM History of Present Illness: Loretta Penn is a 64 year-old female with past medical history significant for HFrEF (EF 25% 02/2025), severe TR, 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 Pt was initially admitted to medicine service and cardiology consulted regarding severity of heart failure and other valvular issues. On admission, labs significant for BNP 2209, trop 24-->23, Na 122, K 6.1, Cr 1.48,alk phos 365, bili 7.7. Pt was shifted with insulin + dextrose, given patiromer and. She was started on IV furosemide TID for acute HFrEF. EKG showing Qtc prolongation. Pt noted to be hypoglycemic in40s on 05/16 AM, hypoglycemia protocol initiated. Patient transferred to primary cardiology service on 05/16 d/t concern that patient may develop cardiogenic shock. On 05/17, decision was made to proceed with light sedation in order to be able to provide meds to pt given that she was not taking any orals d/t sedation; additionally Na in 121-122 range and pt would need more frequent lab draws for mgmt. On transfer to ICU, pt increasing agitated and given IV ativan. Then noted to be obtunded, intubated for airway protection. She was given hypertonic saline 2x, and was also briefly on levophed for BP support. ICU team c[facility]. Started on nitroprusside drip, but then discontinued d/t no proper BP measurements. Palliative consulted regarding family's understanding of medical conditions and difficult decision making. A line and central line placed. Sedation was discontinued on 05/19 AM, pt responding to name but not following commands. Noted to have afib with RVR overnight, proceeded with CHANCE DCCV. Medical Hx: Per chart review, patient follows with [facility] primarily. Of note, patient recently admitted at [facility] forHF exacerbation in 02/2025; per chart review, patient was previously admitted previously at [facility] for MAYS and othorpnea + fluid retention for 2-3 weeks and then transferred to [facility]. [facility] radar systems engineer Dr. Flores increased her lasix from 40qd to BID, added spironolactone but had no improvement. BNPelevated to 2800s, at that time, started on IV bumex. EKG showing afib. Pt received diuresis at [facility] then GDMT was optimized to Entresto 24-26 (0.5 tab) BID, metoprolol XR 100 mg daily, spironolactone 25 mg daily, and Jardiance 10 mg daily. Valve team was consulted during this hospitalization, recommending clinic follow-up without transcatheter tricuspid valve interventions since patient is a poor candidate due to chronic tricuspid valve endocarditis and severe non-ischemic cardiomyopathy with LVEF 25%. Current Medications: Scheduled: Medications[1] Continuous: Medications[2] PRN: Medications[3] Vital Signs: Temp: [98 ??F (36.7 ??C)-99.1 ??F (37.3 ??C)] 98.6 ??F (37 ??C) Pulse: [102-139] 118 Resp: [10-21] 14 Arterial Line BP #1: (95-115)/(50-60) 111/56 O2 %: [30 %-40 %] 30 % O2 %: [30 %-40 %] 40 % Physical Exam: General: Intubated and sedated, no acute distress Head: normocephalic, atraumatic Eyes: conjunctivae clear, extraocular muscles intact Mouth/Throat: ETT in place CV: regular rate and rhythm, no murmurs appreciated Resp: clear to auscultation bilaterally, no wheezes or crackles heard Abd: soft, nontender, nondistended, normoactive bowel sounds Extremities: no lower extremity edema, no cyanosis Skin: BLE pitting edema 2+ Neuro: moving all extremities well, no focal deficits Lab Results: Labs have been personally reviewed and are remarkable for the following: CBC: Recent Labs Component Name 05/20/25 0306 05/19/25 0400 05/18/25 0305 WBC 6.5 5.2 4.5 HGB 14.1 15.0 13.6 HCT 41.3 41.4 37.3 MCV 98.1* 94.1 91.9 Coagulation Panel: Recent Labs Component Name 05/15/25 1454 PT 29.5* INR 2.9 BMP: Recent Labs Component Name 05/20/25 0845 05/20/25 0306 05/19/25 2044 NA 132* 132* 132* 132* POTASSIUM 4.0 4.0 5.1* 3.1* CL 96* 96* 96* 91* CO2 29 29 29 30* BUN 26 26 23 19 CREATININE 1.02* 1.02* 1.05* 1.05* CALCIUM 8.2* 8.2* 8.3* 8.2* Recent Labs Component Name 05/20/25 0845 05/20/25 0306 05/19/25 2044 MAGNESIUM 2.1 2.2 1.9 Recent Labs Component Name 05/20/25 0845 05/20/25 0306 05/19/25 2044 PHOS 2.4* 2.7* 2.7* Hepatic Panel: Recent Labs Component Name 05/20/25 0845 05/20/25 0306 05/19/25 2044 05/18/25 0933 05/18/25 0305 05/17/25 1751 05/16/25 0827 05/15/25 2257 05/15/252019 AST 37* - - - - 56* - 71* - ALT 25 - - - - 35 - 41 - ALKPHOS 259* - - - - 286* - 351* - TBILI 9.4* - - - - 6.1* - 7.2* 7.0* DBILI - - - - 4.4* - - - 4.9* IBILI - - - - - - - - 2.1 ALB 2.2* 2.2* 2.3* 2.3* - 2.6* 2.6* - 3.1* 3.1* - - = values in this interval not displayed. ABG: Recent Labs Component Name 05/20/25 1210 05/20/25 0845 05/20/25 030 PH 7.42 7.43 7.41 7.38 PCO2 49* 51* 51* PO2 73* 77* 97 Amylase/Lipase: Invalid input(s): AMYL, LIPA Thyroid Studies: No results for input(s): TSH, T4 in the last 94543 hours. Cardiac Enzymes: No results for input(s): CKTOTAL, CKMB, TROPONINI in the last 54796 hours. Invalid input(s): CKMBINDEX Lipid Panel: No results for input(s): LDLCALC, HDL in the last 94501 hours. Microbiology: Microbiology Results (Displays last 21 days for this encounter ONLY) Procedure Component Value - Date/Time CULTURE SPUTUM+GRAM STAIN [[id number]] Collected: 05/19/25 1620 Lab Status: Preliminary result Specimen: Microbiology from Sputum Updated: 05/19/25 2100 Gram Stain Moderate Gram-negative bacilli Moderate Gram-positive cocci Light Yeast >= 25 per low power field Polymorphonuclear cells <10 per low power field Squamous epithelial cells CULTURE BLOOD [[id number]] (Normal) Collected: 05/17/25 1440 Lab Status: Preliminary result Specimen: Blood Peripheral Updated: 05/19/25 193 Culture No growth MRSA PCR [[id number]] (Normal) Collected: 05/17/25 1440 Lab Status: Final result Specimen: Microbiology from Nasal Updated: 05/17/25 210 MRSA DNA by PCR Not detected Narrative: Methicillin-resistant Staphylococcus aureus (MRSA) DNA is not detected (presumed not colonized withMRSA). CULTURE BLOOD [[id number]] (Normal) Collected: 05/17/25 1436 Lab Status: Preliminary result Specimen: Blood Peripheral Updated: 05/19/25 193 Culture No growth Imaging: CT Head Wo Contrast Result Date: 05/17/2025 IMPRESSION: 1.No acute intracranial hemorrhage, midline shift, or mass effect. 2.Left side the sinusitis. The left nasogastric tube is in place. > Dictated by Claire Ortiz MD, (development vice president). > Dictated by Instrument Technologist I, Tripp Pablo MD have personally reviewed and interpretedthis examination/study. > Interpreting Provider: Tripp Pablo MD on 05/17/2025 9:24 AM XR Abdomen Kub Portable Result Date: 05/17/2025 IMPRESSION: Enteric tube terminates in the gastric body. > Interpreting Provider: Felipe Munoz MD on 05/17/2025 9:[address] Chest Pe W Abd Pelvis W Cont Result Date: 05/15/2025 Impression: 1.No evidence of acute pulmonary embolism. There is a retained metallic wire within oneof the right inferior lobe pulmonary arteries, likely iatrogenic. 2.Cardiomegaly and a moderate-sized pericardial effusion. Reflux of contrast into the hepatic veins suggesting right heart dysfunction. 3.Interstitial pulmonary edema, small volume ascites and diffuse body wall edema suggesting hypervolemia. Preliminary findings were discussed with the patient's care provider, Dr Sil Cordero by Dr. Tom Dinh via telephone at 05/15/2025 8:24 PM with readback comprehension and verification. > Dictated by Tom Dinh DO, (development vice president). > Dictated by Instrument Technologist I, Ann-Marie Campa MD have personally reviewed and interpreted this examination/study. > Interpreting Provider: Ann-Marie Campa MD on 05/15/2025 10:20 PM XR CHEST 2VW Result Date: 05/15/2025 IMPRESSION: A linear wire-like density projects over the right perihilar region. Cardiomegaly. Likely enlarged pulmonary arteries. Mild interstitial edema. Trace pleural effusions. No pneumothorax. > Interpreting Provider: Felipe Munoz MD on 05/15/2025 3:03 PM ASSESSMENT/PLAN: Neurological #Acute encephalopathy #Agitation - Pt noted to be obtunded at 4AM on 05/17, was given ativan earlier In the night for agitation - EEG with generalized slowing - sedation weaned off on 10AM PLAN: - ICU consulted, appreciate recs for sedation - cont to hold to assess for improvement in patient'smentation - SBT per resp - CT head w/o contrast pending given pt's lack of response off sedation Sedation - titrate to RASS goal of 0 to -1 - Monitor mental status every hour and notify MD if any changes - Fall precautions, Seizure precautions, HOB elevated Cardiovascular: #C/f cardiogenic shock vs mixed shock #Hypothermia #Acute decompensated HF with reduced EF 25% #Severe TR #Peripheral edema in BLE - TTE done yesterday - Furosemide IV TID given on day of admission - metop and aldactone held on admission as pt not taking oral meds - Manas removed - Levo discontinued PLAN: - Cont bumex 4mg daily - Hold GDMT iso shock: holding spironactone, metop succ - Xavier patienceer for hypothermia #Atrial fibrillation - Cont home xarelto, had not previously been getting due to agitation - RVR resolved after digoxin load PLAN: - CHANCE with DCCV today - Cont xarelto Hemodynamic monitoring - Titrate pressors to minimum amount to keep MAP goal of >60mmHg Pulmonary: #Acute hypoxemic respiratory failure - Pt had to be mechanically intubated on 05/17 AM for c/f airway protection PLAN: - Obtain ABGs to adjust vent settings; ICU c/s for vent mgmt - Titrate Fi O2 to the lowest needed to keep Sats > 92% - Keep HOB elevated 30 degrees, oral care, aspiration precautions GI: #Hyperbilirubinemia #Elevated alk phos - 2/2 congestive hepatopathy iso HF exacerbation - CTM CMP daily Nutrition: tube feeds started CTM BM GI prophyalxis: PPI Renal: #Hyponatremia, improved #Hyperkalemia - Pt hyperkalemic on arrival, shifted with insulin + dextrose and started on lokelma - Noted to be HypoNa, though baseline may be close to 130-132 - Likely hypervolemic hyponatremia iso cardiogenic shock and ADHF PLAN: - Continue diuresis with bumex as above - Cont lokelma, hold as needed - Replete other lytes as needed - q6hr RFP, Mag Electrolytes: Monitor every 6 hours and replace K if <4, Mg if <2, Phos if <2 Endocrine: #IDDM #Obesity - per notes from 04/19, home regimen is 17U lantus in AM, 12U TID AC + slide 0-10U - Noted to have hypoglycemic episode on - BG has been ranging 220-300s on 05/20 PLAN: - Cont SSI 0-12U q4hrs, accuchecks q4hrs - Start lantus 5U qhs Monitor accuchecks every 4 hours and use sliding scale to keep glucose between 140 - 180 #Hypothyroidism - Cont home levothyroxine I.D.: #Hypothermia #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 - Pt on cefadroxil 100mg BID for chronic ppx - TTE does not show any vegetations, though noted to have L atrial mass on CCTA 07/2024 - Became hypothermic on 05/17 - Infectious w/u negative so far (CXR, UA, Bcx) PLAN: - Dc home cefadroxil - Cont IV cefepime x5d Ellison culture if Tmax > 100.4 Heme/Onc: PARTH Transfusion Protocol: Hb < 7, Plt < 10 Code Status: Full Code Lines: Peripheral IV Left Antecubital (Active) Placement Date/Time: 05/15/25 1451 Size (Gauge): 20 G Orientation: Left Location: Antecubital Number of days: 1 Peripheral IV Anterior;Right (Active) Placement Date/Time: 05/16/25 2200 Size (Gauge): 20 G Orientation: Anterior;Right Number of days: 0 Peripheral IV Right Antecubital (Active) Placement Date/Time: 05/16/25 2300 Size (Gauge): 20 G Orientation: Right Location: Antecubital Number of days: 0 Enteral - Nasal/Oral Naso-gastric Nostril/Nare;Left (Active) Placement Date/Time: 05/17/25 0700 Type: Naso-gastric Tube Location: Nostril/Nare;Left Internal Length (cm): 60 Number of days: 0 ETT Endotracheal Tube Cuffed-inflated 7.5 MM (Active) Placement Date/Time: 05/17/25 0327 Person who placed: Michael JIMENES Mask Ventilation: easy mask Induction: Rapid Sequence Device: Endotracheal Tube Location: Oral Tube Type: Cuffed-inflated Tube size (MM): 7.5 MM Depth of insertion: 24 CM Measur... Number of days: 0 Arterial Line (Active) Placement Date/Time: 05/17/25 1100 Placed by: Wendi Scruggs Orientation: Right Site: radial Site Prep: Chlorhexidine Local Anesthetic Used?: No Securement Method: Sutured Procedure Tolerance: Well Number of days: 0 Midline 05/17/25 0154 Right Brachial Vein (Active) Placement Date/Time: 05/17/25 0154 IV Catheter Size: (c) Other (Comments) Orientation: Right Location: Brachial Vein Site Prep: Chlorhexidine Placement Verification: Ultrasound Number of days: 0 Urethral Catheter (Active) Placement Date/Time: 05/17/25 0249 Catheter Type : Double lumen/two-way;Non-latex Catheter Balloon Inflated With: 10 mL Number of days: 0 Prophylaxis: Aspiration precautions w/ HOB elevation by 30 degrees GI prophyalxis w/ pantoprazole VTE prophyalxis w/ SCDs, Eliquis Diet: DIET NPO Except: NO EXCEPTIONS Activity: Intubated and sedated Disposition: ICU Monitoring The above assessment and plan will be discussed with the attending. This note is not final until attested by attending physician. Shavon Caldwell MD 05/20/2025 4:27 PM 05/17/2025 3:39 PM [1] 0.9% NaCl 3 mL Intracatheter q8h albuterol-ipratropium 3 mL Inhalation q4h artificial tears Each Eye q8h bumetanide 4 mg Intravenous QDAY [Held by Provider] busPIRone 10 mg Enteral Tube BID cefepime 2 g Intravenous q8h chlorhexidine 15 mL Mouth/Throat BID cyanocobalamin 500 mcg Enteral Tube QDAY [Held by Provider] escitalopram 10 mg Oral QDAY insulin aspart 0-12 Units Subcutaneous q6h insulin glargine 5 Units Subcutaneous AT BEDTIME levothyroxine 75 mcg Enteral Tube QAM [Held by Provider] metoprolol succinate XL 24hr 100 mg Oral QDAY pantoprazole 40 mg Intravenous QDAY polyethylene glycol 3350 17 g Enteral Tube QDAY rivaroxaban 20 mg Enteral Tube QPM sodium phosphate 40 mmol Intravenous Once sodium zirconium cyclosilicate 5 g Enteral Tube TID AC [Held by Provider] spironolactone 12.5 mg Oral QDAY vitamin D3 5,000 Units Enteral Tube QDAY [2] [Held by Provider] dexmedeTOMIDine, 0-1.5 mcg/kg/hr, Last Rate: Stopped (05/19/25 1036) [Held by Provider] propofol, 0-50 mcg/kg/min, Last Rate: Stopped (05/18/25 1704) [3] SALINE LOCK, INSERT AND MAINTAIN AND 0.9% NaCl AND 0.9% NaCl acetaminophen albuterol HFA dextrose IV for hypoglycemia OR dextrose IV for hypoglycemia OR glucagon glucose (Diabetic Use) gel hydrOXYzine HCl Cosigned by Jefry Arizmendi MD at 05/21/2025 8:34 AM CDT Associated attestation - Jefry Arizmendi MD - 05/21/2025 8:34 AM CDT ATTENDING PHYSICIAN NOTE Patient seen and examined. Objective data including vitals, laboratory results and pertinent imaging studies were independently reviewed by me. I confirm history, exam, assessment and plan in the resident's note. Date of service is the date of the resident's note. Jefry Arizmendi MD Business Unit Manager of Internal Medicine Director, Echo Lab [facility] * Maryann Nielsen DO - 05/20/2025 10:28 AM CDT MICU consult Name: Loretta Penn [facility] Day: 5 ADMITTING/PRIMARY TEAM:CARDIOLOGY MICU CONSULTED FOR: ICU assistance/vent management SUBJECTIVE BRIEF HOSPITAL COURSE: Ms. 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 Initially admitted to floor for HFrEF exacerbation, started on IV diuretics. Hospital course c/b hypoNa, hyperK, hypoglycemia; transferred to cards service 05/17 and later to ICU for persistent agitation and encephalopathy requiring intubation. INTERVAL HISTORY: Remains ventilated, not on sedation. Does not awake to verbal or tactile stimuli on my evaluation but withdraws to pain. Is tachy in the 120s. Made 5 L UOP yesterday. OBJECTIVE Temp: [98 ??F (36.7 ??C)-99.1 ??F (37.3 ??C)] 98 ??F (36.7 ??C) Pulse: [84-139] 131 Resp: [10-21] 14 Arterial Line BP #1: (95-112)/(41-60) 106/54 O2 %: [30 %-40 %] 40 % O2 %: [30 %-40 %] 40 % I/O last 2 completed shifts: In: 1349.3 [I.V.:517.3; NG/GT:210] Out: 2925 [Urine:2925] General: Intubated, not on sedation HEENT: NC AT Cardio: Tachy and irregular Resp: Coarse bilaterally, mechanically ventilated Abdomen: Soft ND Extremities: No edema Neuro: Off sedation but not awakening to verbal/tactile stimuli, not following commands ASSESSMENT & PLAN Critical care was necessary to treat or prevent life-threatening deterioration of the following -- Acute encephalopathy with respiratory failure requiring mechanical ventilation Hyperkalemia (POA: Yes) Hyperbilirubinemia (POA: Yes) Hyponatremia (POA: Yes) Transaminitis (POA: Yes) Elevated alkaline phosphatase level (POA: Yes) Acute on chronic congestive heart failure, unspecified heart failure type (HCC) (POA: Yes) Obesity with serious comorbidity, unspecified class, unspecified obesity type (POA: Yes) Demand ischemia (HCC) (POA: Yes) History of endocarditis (POA: Yes) TBI (traumatic brain injury) (HCC) (POA: Yes) Hypothyroidism (POA: Yes) Atrial fibrillation (HCC) (POA: Yes) Prolonged Q-T interval on ECG (POA: Yes) Pericardial effusion (HCC) (POA: Yes) Acute kidney injury (POA: Yes) Type 2 diabetes mellitus, without long-term current use of insulin (HCC) (POA: Yes) Shortness of breath (POA: Unknown) Other shock (HCC) (POA: Unknown) NEURO -- Sedation: Currently off continuous sedation. Would rec keeping off altogether as able to assess mental status. Consider CTH d/t persistent encephalopathy. -- Delirium ppx: Encourage normal sleep-wake cycle: lights on during day, lights off at night, frequent re-orientation, minimize sleep interruptions. Avoid sedating meds like benzos and antipsychotics -- Primary team holding home buspar and lexapro d/t encephalopathy and prolonged QTc. Would need repeat EKG for QTc before starting when encephalopathy improves. CV -- HFrEF in acute exacerbation; severe MR and TR. Diuresis as per cards but can consider decreasingd/t net negative status. -- Afib on dig and xarelto. Primary service plans for cardioversion today PULM -- Acute hypoxic respiratory failure in setting of encephalopathy, intubated 05/17. Remains mechanically ventilated d/t persistent encephalopathy. Currently on SCMV. -- Highly recommend lung protective ventilation, Vt 6-8 cc/kg, driving pressure < 13, plateau pressures < 30 GI -- Bowel velia -- NPO w/ tube feeds RENAL -- Monitor renal function, lytes, I/O. Avoid nephrotoxic agents ENDO -- DM: Trend sugars, goal 140-180. Hypoglycemia protocol -- Hypothyroidism, continue home synthroid. ID -- Currently on cefepime per primary -- SpCx from 05/19 in process, currently prelim w/ moderate GPB and GPC. Follow results and tailor abx. HEME/ONC -- Monitor H&H, transfuse for Hb < 7, plt < 10 (< 50 if bleeding, <30 if MCS) ETT since 05/17. Cordis since 05/17, consider d/c as not on pressors. A line since 05/17, consider d/c. Midline since 05/17. Stephens since 05/17, consider d/c and trial external cath. I spent 37 minutes in full attendance with this critically-ill patient. Time spent was exclusive ofseparately billed procedures, treating other patients, and teaching time. Pt. is at high risk for complications and morbidity or mortality Pt. is critically ill with vital organ impairment or failure There is high probability of imminent or life threatening deterioration in the patient's condition Time involved in the performance of separately billable procedures, teaching, reviewing education material was not counted towards critical care time. Date of service: 05/20/2025 Maryann Nielsen DO Pulmonary/Critical Care Medicine * Darya Hamilton RCP - 05/20/2025 6:24 AM CDT SBT was successfully completed. Alarms and vitals remained in normal range. Pt will continue to be monitored and documented. * Ha Hernandez MD - 05/19/2025 1:49 PM CDT MICU Progress note Loretta Penn 64 year old Code Status: Full Code Primary Team: Cardiology Consult: Critical Care Consult (MICU 4) Subjective: Loretta Penn is a 64 year old female with history of HFrEF (EF 25% 02/2025), severe TR, MSSATV endocarditis with AICD removal in 07/2024, Afib on Xarelto, morbid obesity, intellectual disability due to TBI, HTN, IDDM, and hypothyroidism who presented to [facility] on 05/16/25 for generalized swelling and 9 lbs weight gain. She was admitted to the floor with cardiology consult for acute HFrEF exacerbation and started on IV lasix TID. Hospital course complicated by hyponatremia, hyperkalemia (s/pinsulin/dextrose, [place]) and hypoglycemia. On 05/16, transferred to cardiology as primary service due to concerns for potential cardiogenic shock. Nephrology consulted for hyponatremia and recommended IV bumex 4 mg BID and 1 liter free water restriction. Due to persistent agitation and inability to comply with medical therapy, patient with transfer orders to the ICU. Critical care consulted for sedation recommendations. She was intubated on 05/17/25 due to obtundation. Interval History: Remained on the ventilator Appeared sedated despite of weaning sedation Improving volume status net -15 L since admission Good response to diuresis A fib rate controlled after digoxin loading Worsening metabolic alkalosis Objective: Review of Systems Positives in bold Constitutional: fevers, chills, sweats, fatigue, weight loss/gain, chronic pain HEENT: head trauma, vision/hearing/voice changes, eye/ear/throat pain Respiratory: cough, shortness of breath, hemoptysis, sputum Cardiovascular: chest pain/discomfort, dyspnea on exertion, orthopnea, PND, palpitations Gastrointestinal: nausea/vomiting, diarrhea, constipation, melena, abdominal pain Genitourinary: dysuria, urgency, frequency, incontinence, hematuria Integument: rash, ulcers, itching Hematologic/lymphatic: easy bruising, bleeding Musculoskeletal: myalgias, arthralgias Neurological: headaches, dizziness, numbness, tingling, seizures Behavioral/Psych: anxiety, depression, memory problems Endocrine: polyuria, polydipsia, polyphagia, heat/cold intolerance Objective: Vitals Vitals: 05/19/25 0800 05/19/25 0900 05/19/25 1000 05/19/25 1100 BP: Pulse: 88 82 90 88 Resp: 10 10 10 10 Temp: 99.1 ??F (37.3 ??C) 99 ??F (37.2 ??C) 98.8 ??F (37.1 ??C) 98.6 ??F (37 ??C) SpO2: 99% 99% 98% 98% Weight: Height: I&O Intake/Output Summary (Last 24 hours) at 05/19/2025 1349 Last data filed at 05/19/2025 1000 Gross per 24 hour Intake 823.33 ml Output 7550 ml Net -6726.67 ml Physical Exam General - Appears stated age HEENT - NC/AT, PERRL Neck - Supple, no LAD, no JVD Chest -coarse breath sounds-improving CV - RRR no murmurs Abdomen - Soft, NT/ND Musculoskeletal - Moves all four extremities off sedation Extremities - No peripheral edema Neurologic -intubated Data Review: Recent Labs Component Name 05/19/25 1021 05/19/25 0400 05/18/25 2251 05/18/25 1450 05/18/25 0305 05/17/25 1751 05/16/25 0827 05/15/25 2257 05/15/25 2020 05/15/25 1606 NA 132* 132* 130* 129* - 123* - 122* 122* - 122* CL 92* 89* 91* 93* - 88* - 90* 90* - 91* CO2 31* 30* 29 28 - 26 - 22 22 - 22 BUN 17 17 16 16 - 19 - 30* 30* - 31* CREATININE 1.08* 1.08* 1.08* 1.08* - 1.04* - 1.48* 1.48* - 1.48* CALCIUM 8.2* 8.4 8.1* 7.8* - 7.7* - 9.8 9.8 - 9.3 PHOS 3.2 3.2 3.6 3.6 - 2.1* - 4.5 - - PROT - - - - - 5.9* - 6.9 - 7.0 ALB 2.4* 2.7* 2.6* 2.6* - 2.6* - 3.1* 3.1* - 3.1* ALT - - - - - 35 - 41 - 41 AST - - - - - 56* - 71* - 59* ALKPHOS - - - - - 286* - 351* - 365* TBILI - - - - - 6.1* - 7.2* 7.0* 7.7* - = values in this interval not displayed. Recent Labs Component Name 05/19/25 1241 05/19/25 0900 05/19/25 0400 05/18/25 2251 [id number] 34.3* 35.1* 34.3* 35.1* Recent Labs Component Name 05/19/25 0400 05/18/25 0305 05/17/25 1823 05/17/25 0311 RBC 4.40 4.06 4.08 3.99 HGB 15.0 13.6 13.6 12.9 HCT 41.4 37.3 37.1 37.7 MCV 94.1 91.9 90.9 94.5 WBC 5.2 4.5 4.1 4.1 Recent Labs Component Name 05/15/25 1454 PT 29.5* INR 2.9 Lab results smartLinks are not currently available Radiology: reviewed Assessment/Plan: Acute encephalopathy from sedation- Intellectual disability due to TBI Acute HFrEF exacerbation Severe MR and TR Hypervolemic Hyponatremia improving with diuresis- Hyperkalemia-improved History of MSSA endocarditis T2DM Obesity Hypothyroidsm Prolonged QTc Critical care was necessary to treat or prevent life-threatening deterioration of the following: Acute hypoxic respiratory failure Acute encephalopathy Titratable gtts postoperative The plan of care consists of: Neuro: Sedation: Precedex for RASS 0 to -1 Wean sedation to extubate Delirium ppx: Encourage normal sleep-wake cycle: lights on during day, lights off at night, frequent re-orientation, minimize sleep interruptions. Avoid sedating meds like benzos and antipsychotics Pain control per primary Psychotropic agents as per primary team- avoid polypharmacy Hold buspar and lexapro- avoid poly pharmacy Cardiac: Hemodynamic monitoring - Titrate MAP to goal of >65 mmHg Titrate pressor to min amt keep to goal of above MAP Levophed for MAP goal Bumex for diuresis as per cardiology - agree with reducing the dosing Atrial fibrillation with rate controlled; continue digoxin maintenance dosing Xarelto 20 mg QHS Pulmonary: Acute hypoxic respiratory failure- continue MV- not a candidate for liberation Aggressive chest physiotherapy with aerobika and IS Encourage ambulation, OOB, PT/OT to avoid post op atelectasis Titrate Fi O2 to the lowest needed to keep Sats > 92% Keep HOP elevated 30 degrees, oral care, aspiration precautions GI: Bowel velia Tube feeds at 30 cc per hour FWF 50 Q8H Renal: Monitor renal function, lytes, I/O Avoid nephrotoxic agents Replete electrolytes if K<4, Phos<3, Mag<2 Hem-onc: Monitor H&H, transfuse for Hb < 7, plt < 10 (< 50 if bleeding) Endocrine: Trend Glucose, goal 140-180 Synthroid 75 mcg daily Lantus 5 units at bedtime and medium dose slide- on hold ID: No concern for infection Musculoskeletal: PT/OT DVT ppx: Heparin I spent 37 minutes in full attendance with this critically-ill patient. Time spent was exclusive ofseparately billed procedures, treating other patients, and teaching time. I have reviewed and agreewith resident documentation. Pt. is at high risk for complications and morbidity or mortality Pt. is critically ill with vital organ impairment or failure There is high probability of imminent or life threatening deterioration in the patient's condition Time involved in the performance of separately billable procedures, teaching, reviewing education material was not counted towards critical care time. Patient is unable or incompetent to participate in giving a history and/or making decisions and discussion is necessary for determining treatment decisions. Date of service: 05/19/2025 Ha Hernandez MD Business Unit Managerconsumer relations complaint clerk Division of Pulmonary, Critical Care, & Sleep Medicine [facility] * Ida Shaw MD - 05/19/2025 7:56 AM CDT CARDIOLOGY SERVICE CCU PROGRESS NOTE Admission Date: 05/15/2025 Patient: Loretta Penn (64 year old female) Code Status: Full Code Interval History: Overnight, had afib with RVR that resolved with 1 dose digoxin. Continues to be sedated despite weaning medications. Sedation switched to precedex Decreasing diuresis today to bumex 4mg daily given hemodynamic parameters do not suggest cardiogenic shock Remains on levophed History of Present Illness: Loretta Penn is a 64 year-old female with past medical history significant for HFrEF (EF 25% 02/2025), severe TR, 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 Pt was initially admitted to medicine service and cardiology consulted regarding severity of heart failure and other valvular issues. On admission, labs significant for BNP 2209, trop 24-->23, Na 122, K 6.1, Cr 1.48,alk phos 365, bili 7.7. Pt was shifted with insulin + dextrose, given patiromer and. She was started on IV furosemide TID for acute HFrEF. EKG showing Qtc prolongation. Pt noted to be hypoglycemic in40s on 8/ AM, hypoglycemia protocol initiated. Patient transferred to primary cardiology service on 05/16 d/t concern that patient may develop cardiogenic shock. Interview limited due to patient agitation despite having POA sister Mounika on speaker in the room. Patient responds to her name but otherwise does not answer any questions. Per chart review, patient follows with [facility] primarily. Of note, patient recently admitted at [facility] forHF exacerbation in 02/2025; per chart review, patient was previously admitted previously at [facility] for MAYS and othorpnea + fluid retention for 2-3 weeks and then transferred to [facility]. [facility] radar systems engineer Dr. Flores increased her lasix from 40qd to BID, added spironolactone but had no improvement. BNPelevated to 2800s, at that time, started on IV bumex. EKG showing afib. Pt received diuresis at [facility] then GDMT was optimized to Entresto 24-26 (0.5 tab) BID, metoprolol XR 100 mg daily, spironolactone 25 mg daily, and Jardiance 10 mg daily. Valve team was consulted during this hospitalization, recommending clinic follow-up without transcatheter tricuspid valve interventions since patient is a poor candidate due to chronic tricuspid valve endocarditis and severe non-ischemic cardiomyopathy with LVEF 25%. She was admitted to cardiac ICU for mixed shock. She additionally had acute encephalopathy requiring intubation and sedation. Current Medications: Scheduled: Medications[1] Continuous: Medications[2] PRN: Medications[3] Vital Signs: Temp: [89.4 ??F (31.9 ??C)-99.9 ??F (37.7 ??C)] 99.3 ??F (37.4 ??C) Pulse: [84-145] 84 Resp: [0-16] 16 Arterial Line BP #1: (78-123)/(48-72) 96/49 O2 %: [30 %] 30 % Physical Exam: General: Intubated and sedated, no acute distress Head: normocephalic, atraumatic Eyes: conjunctivae clear, extraocular muscles intact Mouth/Throat: ETT in place CV: regular rate and rhythm, no murmurs appreciated Resp: clear to auscultation bilaterally, no wheezes or crackles heard Abd: soft, nontender, nondistended, normoactive bowel sounds Extremities: no lower extremity edema, no cyanosis Skin: BLE pitting edema 2+ Neuro: moving all extremities well, no focal deficits Lab Results: Labs have been personally reviewed and are remarkable for the following: CBC: Recent Labs Component Name 05/19/25 0400 05/18/25 0305 05/17/25 1823 WBC 5.2 4.5 4.1 HGB 15.0 13.6 13.6 HCT 41.4 37.3 37.1 MCV 94.1 91.9 90.9 Coagulation Panel: Recent Labs Component Name 05/15/25 1454 PT 29.5* INR 2.9 BMP: Recent Labs Component Name 05/19/25 0400 05/18/25225005/18/25 1450 NA 132* 130* 129* POTASSIUM 3.8 3.9 4.1 CL 89* 91* 93* CO2 30* 29 28 BUN 17 16 16 CREATININE 1.08* 1.08* 1.08* CALCIUM 8.4 8.1* 7.8* Recent Labs Component Name 05/19/25 0400 05/18/25225005/18/25 1450 MAGNESIUM 1.9 2.0 2.1 Recent Labs Component Name 05/19/25 0400 05/18/25 22505/18/25 1450 PHOS 3.2 3.6 3.6 Hepatic Panel: Recent Labs Component Name 05/19/25 0400 05/18/25 22505/18/25 1450 05/18/25 0933 05/18/25 0305 05/17/25 1751 05/16/25 0827 05/15/25 2257 05/15/25201905/15/25 1606 AST - - - - - 56* - 71* - 59* ALT - - - - - 35 - 41 - 41 ALKPHOS - - - - - 286* - 351* - 365* TBILI - - - - - 6.1* - 7.2* 7.0* 7.7* DBILI - - - - 4.4* - - - 4.9* - IBILI - - - - - - - - 2.1 - ALB 2.7* 2.6* 2.6* - 2.6* 2.6* - 3.1* 3.1* - 3.1* - = values in this interval not displayed. ABG: Recent Labs Component Name 05/19/2539905/18/25225005/18/25 1548 05/18/25 1450 PH 7.49* 7.48* 7.50* 7.48* - 7.44 PCO2 45 45 - 47* PO2 87 88 - 82 - = values in this interval not displayed. Amylase/Lipase: Invalid input(s): AMYL, LIPA Thyroid Studies: No results for input(s): TSH, T4 in the last 85178 hours. Cardiac Enzymes: No results for input(s): CKTOTAL, CKMB, TROPONINI in the last 34309 hours. Invalid input(s): CKMBINDEX Lipid Panel: No results for input(s): LDLCALC, HDL in the last 86255 hours. Microbiology: Microbiology Results (Displays last 21 days for this encounter ONLY) Procedure Component Value - Date/Time CULTURE BLOOD [[id number]] (Normal) Collected: 05/17/25 144 Lab Status: Preliminary result Specimen: Blood Peripheral Updated: 05/18/25 193 Culture No growth 24 hours MRSA PCR [[id number]] (Normal) Collected: 05/17/25 1440 Lab Status: Final result Specimen: Microbiology from Nasal Updated: 05/17/252105 MRSA DNA by PCR Not detected Narrative: Methicillin-resistant Staphylococcus aureus (MRSA) DNA is not detected (presumed not colonized withMRSA). CULTURE BLOOD [[id number]] (Normal) Collected: 05/17/25 1436 Lab Status: Preliminary result Specimen: Blood Peripheral Updated: 05/18/251930 Culture No growth 24 hours Imaging: CT Head Wo Contrast Result Date: 05/17/2025 IMPRESSION: 1.No acute intracranial hemorrhage, midline shift, or mass effect. 2.Left side the sinusitis. The left nasogastric tube is in place. > Dictated by Claire Ortiz MD, (development vice president). > Dictated by Instrument Technologist I, Tripp Pablo MD have personally reviewed and interpretedthis examination/study. > Interpreting Provider: Tripp Pablo MD on 05/17/2025 9:24 AM XR Abdomen Kub Portable Result Date: 05/17/2025 IMPRESSION: Enteric tube terminates in the gastric body. > Interpreting Provider: Felipe Munoz MD on 05/17/2025 9:[address] Chest Pe W Abd Pelvis W Cont Result Date: 05/15/2025 Impression: 1.No evidence of acute pulmonary embolism. There is a retained metallic wire within oneof the right inferior lobe pulmonary arteries, likely iatrogenic. 2.Cardiomegaly and a moderate-sized pericardial effusion. Reflux of contrast into the hepatic veins suggesting right heart dysfunction. 3.Interstitial pulmonary edema, small volume ascites and diffuse body wall edema suggesting hypervolemia. Preliminary findings were discussed with the patient's care provider, Dr Sil Cordero by Dr. Tom Dinh via telephone at 05/15/2025 8:24 PM with readback comprehension and verification. > Dictated by Tom Dinh DO, (development vice president). > Dictated by Instrument Technologist I, Ann-Marie Campa MD have personally reviewed and interpreted this examination/study. > Interpreting Provider: Ann-Marie Campa MD on 05/15/2025 10:20 PM XR CHEST 2VW Result Date: 05/15/2025 IMPRESSION: A linear wire-like density projects over the right perihilar region. Cardiomegaly. Likely enlarged pulmonary arteries. Mild interstitial edema. Trace pleural effusions. No pneumothorax. > Interpreting Provider: Felipe Munoz MD on 05/15/2025 3:03 PM ASSESSMENT/PLAN: Neurological #Acute encephalopathy #Agitation - Pt noted to be obtunded at 4AM on 05/17, was given ativan earlier In the night for agitation - EEG with generalized slowing PLAN: - ICU consulted, appreciate recs for sedation - Cont precedex , wean as tolerated. Pt not waking up today despite turnign off sedation, will treat aklalosis as below - remove EEG Sedation - titrate to RASS goal of 0 to -1 - Monitor mental status every hour and notify MD if any changes - Fall precautions, Seizure precautions, HOB elevated Cardiovascular: #C/f cardiogenic shock vs mixed shock #Hypothermia #Acute decompensated HF with reduced EF 25% #Severe TR #Peripheral edema in BLE - TTE done yesterday - Furosemide IV TID given on day of admission - metop and aldactone held on admission as pt not taking oral meds PLAN: - Cont bumex 4mg daily - Hold GDMT iso shock: holding spironactone, metop succ - Xavier hugger for hypothermia - A line placed and Manas placed - Cont levo for hypotension, MAP goal 60. #Atrial fibrillation - Cont home xarelto, had not previously been getting due to agitation - RVR resolved after 1 dose digoxin Hemodynamic monitoring - Titrate pressors to minimum amount to keep MAP goal of >60mmHg Pulmonary: #Acute hypoxemic respiratory failure - Pt had to be mechanically intubated on 05/17 AM for c/f airway protection PLAN: - Obtain ABGs frequently to adjust vent settings; ICU c/s for vent mgmt - Titrate Fi O2 to the lowest needed to keep Sats > 92% - Keep HOB elevated 30 degrees, oral care, aspiration precautions GI: #Hyperbilirubinemia #Elevated alk phos - 2/2 congestive hepatopathy iso HF exacerbation - CTM CMP daily Nutrition: tube feeds started CTM BM GI prophyalxis: PPI Renal: #Hyponatremia, improved #Hyperkalemia - Pt hyperkalemic on arrival, shifted with insulin + dextrose and started on lokelma - Noted to be HypoNa, though baseline may be close to 130-132 - Likely hypervolemic hyponatremia iso cardiogenic shock and ADHF PLAN: - Continue diuresis with bumex as above - Holding lokelma since K has been <4 recently - Replete other lytes as needed - q6hr RFP, Mag ##Alkalosis - bicarb increasing to 31, pH 7.5, overall may be contributing to patient encephalopathy. 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 - Pt on cefadroxil 100mg BID for chronic ppx - TTE does not show any vegetations, though noted to have L atrial mass on CCTA 07/2024 - Became hypothermic on 05/17 PLAN: - Dc home cefadroxil - Start IV cefepime - Pending infectious w/u with UA and Bcx; deescalate abx as able Ellison culture if Tmax > 100.4 Heme/Onc: PARTH Transfusion Protocol: Hb < 7, Plt < 10 Code Status: Full Code Lines: Peripheral IV Left Antecubital (Active) Placement Date/Time: 05/15/25 1451 Size (Gauge): 20 G Orientation: Left Location: Antecubital Number of days: 1 Peripheral IV Anterior;Right (Active) Placement Date/Time: 05/16/25 2200 Size (Gauge): 20 G Orientation: Anterior;Right Number of days: 0 Peripheral IV Right Antecubital (Active) Placement Date/Time: 05/16/25 2300 Size (Gauge): 20 G Orientation: Right Location: Antecubital Number of days: 0 Enteral - Nasal/Oral Naso-gastric Nostril/Nare;Left (Active) Placement Date/Time: 05/17/25 0700 Type: Naso-gastric Tube Location: Nostril/Nare;Left Internal Length (cm): 60 Number of days: 0 ETT Endotracheal Tube Cuffed-inflated 7.5 MM (Active) Placement Date/Time: 05/17/25 0327 Person who placed: Michael JIMENES Mask Ventilation: easy mask Induction: Rapid Sequence Device: Endotracheal Tube Location: Oral Tube Type: Cuffed-inflated Tube size (MM): 7.5 MM Depth of insertion: 24 CM Measur... Number of days: 0 Arterial Line (Active) Placement Date/Time: 05/17/25 1100 Placed by: Wendi Scruggs Orientation: Right Site: radial Site Prep: Chlorhexidine Local Anesthetic Used?: No Securement Method: Sutured Procedure Tolerance: Well Number of days: 0 Midline 05/17/25 0154 Right Brachial Vein (Active) Placement Date/Time: 05/17/25 0154 IV Catheter Size: (c) Other (Comments) Orientation: Right Location: Brachial Vein Site Prep: Chlorhexidine Placement Verification: Ultrasound Number of days: 0 Urethral Catheter (Active) Placement Date/Time: 05/17/25 0249 Catheter Type : Double lumen/two-way;Non-latex Catheter Balloon Inflated With: 10 mL Number of days: 0 Prophylaxis: Aspiration precautions w/ HOB elevation by 30 degrees GI prophyalxis w/ pantoprazole VTE prophyalxis w/ SCDs, Eliquis Diet: DIET NPO Except: NO EXCEPTIONS DIET TUBE FEEDING CONTINUOUS Activity: Intubated and sedated Disposition: ICU Monitoring The above assessment and plan will be discussed with the attending. This note is not final until attested by attending physician. Ida Shaw MD PGY3 05/17/2025 7:56 AM [1] 0.9% NaCl 3 mL Intracatheter q8h artificial tears Each Eye q8h bumetanide 4 mg Intravenous TID busPIRone 10 mg Enteral Tube BID cefepime 2 g Intravenous q8h chlorhexidine 15 mL Mouth/Throat BID cyanocobalamin 500 mcg Enteral Tube QDAY [Held by Provider] escitalopram 10 mg Oral QDAY insulin aspart 0-12 Units Subcutaneous q6h [Held by Provider] insulin glargine 5 Units Subcutaneous AT BEDTIME levothyroxine 75 mcg Enteral Tube QAM [Held by Provider] metoprolol succinate XL 24hr 100 mg Oral QDAY pantoprazole 40 mg Intravenous QDAY polyethylene glycol 3350 17 g Enteral Tube QDAY rivaroxaban 20 mg Enteral Tube QPM [Held by Provider] sodium zirconium cyclosilicate 5 g Oral TID AC [Held by Provider] spironolactone 12.5 mg Oral QDAY vitamin D3 5,000 Units Enteral Tube QDAY [2] dexmedeTOMIDine, 0-1.5 mcg/kg/hr, Last Rate: 0.2 mcg/kg/hr (05/19/25742) norepinephrine, 0-0.4 mcg/kg/min, Last Rate: 0.01 mcg/kg/min (05/19/25 07) propofol, 0-50 mcg/kg/min, Last Rate: Stopped (05/18/25 1704) [3] SALINE LOCK, INSERT AND MAINTAIN AND 0.9% NaCl AND 0.9% NaCl acetaminophen albuterol HFA dextrose IV for hypoglycemia OR dextrose IV for hypoglycemia OR glucagon glucose (Diabetic Use) gel hydrOXYzine HCl Cosigned by iLnda Lezama MD at 05/19/2025 4:50 PM CDT Associated attestation - Linda Lezama MD - 05/19/2025 4:50 PM CDT ATTENDING ATTESTATION NOTE I have seen and examined the patient with the resident and I agree with the findings and plan of care as documented by the resident. Interval Hx: sedated and intubated. Norepi ongoing Worsened AFib RVR overnight Good UOP with diuretics CVP improved - normal now, PAD normal HPI: 64 yo with hx of TBI, NICM, severe TR (prior endocarditis), ICD infection (removed), admitted with severe acute decompensated HF, hyponatremia. Patient has been getting IV lasix during admission. She has severely low sodium. Elevated BrT. On exam, cool right extremity, warm on the left. Systolic murmur through the precordium. Mixed cardiogenic and vasodilatory shock Acute decompensated HF Congestive hepatopathy Hypervolumec hyponatremia Severe TR and MR Afib with RVR Baseline traumatic brain injury Remains intubated sedated On levophed - wean as tolerated Good UOP with IV bumex - CVP and PAD today normal. Decrease bumex to daily dosing rather than TID CO/CI normal. SVR low. Most consistent with ongoing vasodilitory shock. Afib /RVR worse overnight - responded well to one time IV digoxin load. Other doses held. For now continue to hold as HRs improved. If recurrent - will reload an start maintenance dose. Continue anticoagulation - xarelto Remove swan today Continue Abx - MRSA nares negative - stopped vanc. Continue cefepime. No source of infection yet. Plan for a 5 day course Appreciate MICU -work towards extubation Discuss goal of care with family Rest of plan as per the resident note. Date of Service: 05/19/25 Linda Lezama MD * Paris Hamilton RCP - 05/19/2025 4:26 AM CDT SBT was held this morning due to patient not responding to verbal or tactile stimuli on 0.6mcg/kg/hr Precedex. * Ha Hernandez MD - 05/18/2025 4:47 PM CDT MICU Progress note Loretta Penn 64 year old Code Status: Full Code Primary Team: Cardiology Consult: Critical Care Consult (MICU 4) Subjective: Loretta Penn is a 64 year old female with history of HFrEF (EF 25% 02/2025), severe TR, MSSATV endocarditis with AICD removal in 07/2024, Afib on Xarelto, morbid obesity, intellectual disability due to TBI, HTN, IDDM, and hypothyroidism who presented to [facility] on 05/16/25 for generalized swelling and 9 lbs weight gain. She was admitted to the floor with cardiology consult for acute HFrEF exacerbation and started on IV lasix TID. Hospital course complicated by hyponatremia, hyperkalemia (s/pinsulin/dextrose, Veltassa) and hypoglycemia. On 05/16, transferred to cardiology as primary service due to concerns for potential cardiogenic shock. Nephrology consulted for hyponatremia and recommended IV bumex 4 mg BID and 1 liter free water restriction. Due to persistent agitation and inability to comply with medical therapy, patient with transfer orders to the ICU. Critical care consulted for sedation recommendations. She was intubated on 05/17/25 due to obtundation. Interval History: Remained on the ventilator Improving volume status net -8.7 L since admission Good response to diuresis Settings on the ventilator Weaning sedation Persistent A-fib RVR with HR reaching 150s Objective: Review of Systems Positives in bold Constitutional: fevers, chills, sweats, fatigue, weight loss/gain, chronic pain HEENT: head trauma, vision/hearing/voice changes, eye/ear/throat pain Respiratory: cough, shortness of breath, hemoptysis, sputum Cardiovascular: chest pain/discomfort, dyspnea on exertion, orthopnea, PND, palpitations Gastrointestinal: nausea/vomiting, diarrhea, constipation, melena, abdominal pain Genitourinary: dysuria, urgency, frequency, incontinence, hematuria Integument: rash, ulcers, itching Hematologic/lymphatic: easy bruising, bleeding Musculoskeletal: myalgias, arthralgias Neurological: headaches, dizziness, numbness, tingling, seizures Behavioral/Psych: anxiety, depression, memory problems Endocrine: polyuria, polydipsia, polyphagia, heat/cold intolerance Objective: Vitals Vitals: 05/18/25 1545 05/18/25 1600 05/18/25 1615 05/18/25 1626 BP: Pulse: (!) 135 (!) 140 (!) 140 (!) 134 Resp: 10 (!) 0 (!) 8 Temp: 99 ??F (37.2 ??C) 99 ??F (37.2 ??C) 99 ??F (37.2 ??C) SpO2: 98% 98% 98% 98% Weight: Height: I&O Intake/Output Summary (Last 24 hours) at 05/18/2025 1716 Last data filed at 05/18/2025 1621 Gross per 24 hour Intake 2139.05 ml Output 5635 ml Net -3495.95 ml Physical Exam General - Appears stated age HEENT - NC/AT, PERRL Neck - Supple, no LAD, no JVD Chest -coarse breath sounds-improving CV - RRR no murmurs Abdomen - Soft, NT/ND Musculoskeletal - Moves all four extremities off sedation Extremities - No peripheral edema Neurologic -intubated Data Review: Recent Labs Component Name 05/18/25 1450 05/18/25 0933 05/18/25 0305 05/17/25 1751 05/16/25 0827 05/15/25 2257 05/15/25201905/15/25 1606 NA 129* 127* 126* 123* - 122* 122* - 122* CL 93* 91* 88* 88* - 90* 90* - 91* CO2 28 29 27 26 - 22 22 - 22 BUN 16 16 16 19 - 30* 30* - 31* CREATININE 1.08* 1.06* 1.04* 1.04* - 1.48* 1.48* - 1.48* CALCIUM 7.8* 7.6* 7.7* 7.7* - 9.8 9.8 - 9.3 PHOS 3.6 3.3 3.4 2.1* - 4.5 - - PROT - - - 5.9* - 6.9 - 7.0 ALB 2.6* 2.5* 2.6* 2.6* - 3.1* 3.1* - 3.1* ALT - - - 35 - 41 - 41 AST - - - 56* - 71* - 59* ALKPHOS - - - 286* - 351* - 365* TBILI - - - 6.1* - 7.2* 7.0* 7.7* - = values in this interval not displayed. Recent Labs Component Name 05/18/25 1450 05/18/25 0416 05/18/25 0305 05/17/25 2212 [id number] 31.9* 29.8 28.2 28.6 Recent Labs Component Name 05/18/25 0305 05/17/25 1823 05/17/25 0311 05/15/25 2257 RBC 4.06 4.08 3.99 4.12 HGB 13.6 13.6 12.9 13.7 HCT 37.3 37.1 37.7 39.6 MCV 91.9 90.9 94.5 96.1 WBC 4.5 4.1 4.1 3.9* Recent Labs Component Name 05/15/25 1454 PT 29.5* INR 2.9 Lab results smartLinks are not currently available Radiology: reviewed Assessment/Plan: Acute encephalopathy from sedation- Intellectual disability due to TBI Acute HFrEF exacerbation Severe MR and TR Hypervolemic Hyponatremia improving with diuresis- Hyperkalemia-improved History of MSSA endocarditis T2DM Obesity Hypothyroidsm Prolonged QTc Critical care was necessary to treat or prevent life-threatening deterioration of the following: Acute hypoxic respiratory failure Acute encephalopathy Titratable gtts postoperative The plan of care consists of: Neuro: Sedation: Switch fentanyl and propofol to Precedex for RASS 0 to -1 Wean sedation to extubate tomorrow a.m. Delirium ppx: Encourage normal sleep-wake cycle: lights on during day, lights off at night, frequent re-orientation, minimize sleep interruptions. Avoid sedating meds like benzos and antipsychotics Pain control per primary Psychotropic agents as per primary team- avoid polypharmacy Cardiac: Hemodynamic monitoring - Titrate MAP to goal of >65 mmHg Titrate pressor to min amt keep to goal of above MAP Levophed for MAP goal Bumex for diuresis Atrial fibrillation with HR in 150s-- recommend to control rate/rhythm Pulmonary: Acute hypoxic respiratory failure- continue MV- not a candidate for liberation Get stat ABG and will adjust vent settings Aggressive chest physiotherapy with aerobika and IS Encourage ambulation, OOB, PT/OT to avoid post op atelectasis Titrate Fi O2 to the lowest needed to keep Sats > 92% Keep HOP elevated 30 degrees, oral care, aspiration precautions GI: Bowel velia Start tube feeds at 30 cc per hour FWF 50 Q8H Renal: Monitor renal function, lytes, I/O Avoid nephrotoxic agents Replete electrolytes if K<4, Phos<3, Mag<2 Hem-onc: Monitor H&H, transfuse for Hb < 7, plt < 10 (< 50 if bleeding) Endocrine: Trend Glucose, goal 140-180 Synthroid 75 mcg daily Lantus 5 units at bedtime and medium dose slide ID: No concern for infection Musculoskeletal: PT/OT DVT ppx: Heparin I spent 38 minutes in full attendance with this critically-ill patient. Time spent was exclusive ofseparately billed procedures, treating other patients, and teaching time. I have reviewed and agreewith resident documentation. Pt. is at high risk for complications and morbidity or mortality Pt. is critically ill with vital organ impairment or failure There is high probability of imminent or life threatening deterioration in the patient's condition Time involved in the performance of separately billable procedures, teaching, reviewing education material was not counted towards critical care time. Patient is unable or incompetent to participate in giving a history and/or making decisions and discussion is necessary for determining treatment decisions. Date of service: 05/18/2025 Ha Hernandez MD Business Unit Managerconsumer relations complaint clerk Division of Pulmonary, Critical Care, & Sleep Medicine [facility] * Praneeth Navarrete MD - 05/18/2025 4:31 PM CDT Nephrology Attending Physician History: Ms. Penn is a 64 year old female w/ PMH significant for T2DM, HTN, Atrial Fib, HFrEF (EF25%),AIC defibrillator removed 2/, and other comorbidities who presented for SOB and chest discomfort. Labs on arrival revealed Na 122, K+ 6.1, BUN 31, creatinine 1.48, glucose 164, serum osmolality 264,Urine Na+ 77, Urine osmolality 343. Nephrology was consulted for hyponatremia in the setting of heart failure. Switched IV furosemide to Bumex 4 mg BID. Urine output improved significantly. Patient was intubated today. Not requiring pressor support as this time. Hyponatremia improved, 122 to 124. Creatinine has also improved, from1.48 on 05/15/2025 to 1.18. Suggest continuing IV Bumex. May adjust the dose down to avoid hypotension. Goal MAP >65. Interval History Patient is intubated.. Urine output 6,690 ml over 24 hr on Bumex 4 mg BID. Exam/Data : Patient is on MV, Fi02 30%. BP 83/50 on pressor support with norepinephrine 0.04.. In NAD. S1S2, RRR Lungs clear to auscultation Abd soft + bs Edema 1+ MEDS: Medications[1] PRN MEDS: Medications[2] LAB: Recent Labs Component Name 05/18/25 0305 05/17/25 1823 05/17/25 0311 05/15/25 2257 05/15/25 1454 HGB 13.6 13.6 12.9 13.7 14.6 WBC 4.5 4.1 4.1 3.9* 3.9* HCT 37.3 37.1 37.7 39.6 43.4 MCV 91.9 90.9 94.5 96.1 97.7 PT - - - - 29.5* INR - - - - 2.9 ) Recent Labs Component Name 05/18/25 1450 05/18/25 0905/18/25 03005/17/25 17505/17/25 0733 BUN 16 16 16 19 23 CREATININE 1.08* 1.06* 1.04* 1.04* 1.18* NA 129* 127* 126* 123* 124* CL 93* 91* 88* 88* 89* CO2 28 29 27 26 26 CALCIUM 7.8* 7.6* 7.7* 7.7* 8.2* PHOS 3.6 3.3 3.4 2.1* 2.0* Recent Labs Component Name 05/18/25 1450 05/18/25 0905/18/2530405/17/25 17505/17/25 0733 05/16/25 0827 05/15/25 2257 05/15/25 2020 05/15/25 1606 ALB 2.6* 2.5* 2.6* 2.6* 2.8* - 3.1* 3.1* - 3.1* TBILI - - - 6.1* - - 7.2* 7.0* 7.7* ALT - - - 35 - - 41 - 41 AST - - - 56* - - 71* - 59* - = values in this interval not displayed. Recent Labs Component Name 05/18/25 1450 05/18/25 0416 05/18/2530405/17/25 2212 05/17/25 1823 [id number] 31.9* 29.8 28.2 28.6 25.5 ASSESSMENT: # Hyponatremia, hypervolemic, hypotonic. Serum Na 123 on admission, has improved to 129. Diuresis with Bumex 4 mg TID. Consider adjusting Bumex dose to keep Mean BP >65. # MARK: Initial serum creatinine 1.34, now 1.08. Resolved. Serum K 4.1. Nephrology will sign off. Praneeth Geronimo MD Nephrology Attending [1] 0.9% NaCl 3 mL Intracatheter q8h artificial tears Each Eye q8h bumetanide 4 mg Intravenous TID busPIRone 10 mg Enteral Tube BID cefepime 2 g Intravenous q8h chlorhexidine 15 mL Mouth/Throat BID cyanocobalamin 500 mcg Enteral Tube QDAY [Held by Provider] escitalopram 10 mg Oral QDAY insulin aspart 0-12 Units Subcutaneous q6h [Held by Provider] insulin glargine 5 Units Subcutaneous AT BEDTIME levothyroxine 75 mcg Enteral Tube QAM [Held by Provider] metoprolol succinate XL 24hr 100 mg Oral QDAY pantoprazole 40 mg Intravenous QDAY polyethylene glycol 3350 17 g Enteral Tube QDAY rivaroxaban 20 mg Enteral Tube QPM [Held by Provider] sodium zirconium cyclosilicate 5 g Oral TID AC [Held by Provider] spironolactone 12.5 mg Oral QDAY vitamin D3 5,000 Units Enteral Tube QDAY [2] SALINE LOCK, INSERT AND MAINTAIN AND 0.9% NaCl AND 0.9% NaCl acetaminophen albuterol HFA dextrose IV for hypoglycemia OR dextrose IV for hypoglycemia OR glucagon glucose (Diabetic Use) gel hydrOXYzine HCl methocarbamol * Ida Shaw MD - 05/18/2025 6:50 AM CDT CARDIOLOGY SERVICE CCU PROGRESS NOTE Admission Date: 05/15/2025 Patient: Loretta Penn (64 year old female) Code Status: Full Code Interval History: Intermittently hypothermic overnight, tachycardic 110s-120s Levophed was restarted overnight Vancomycin started overnight for concern mixed shock, started on vancomycin. D/c this morning due to negative MRSA, continues on cefepime CVP this Afternoon 13, will continue IV bumex 4mg TID Pending possible extubation with MICU. 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 Pt was initially admitted to medicine service and cardiology consulted regarding severity of heart failure and other valvular issues. On admission, labs significant for BNP 2209, trop 24-->23, Na 122, K 6.1, Cr 1.48,alk phos 365, bili 7.7. Pt was shifted with insulin + dextrose, given patiromer and. She was started on IV furosemide TID for acute HFrEF. EKG showing Qtc prolongation. Pt noted to be hypoglycemic in40s on 8 AM, hypoglycemia protocol initiated. Patient transferred to primary cardiology service on 05/16 d/t concern that patient may develop cardiogenic shock. Interview limited due to patient agitation despite having POA sister Mounika on speaker in the room. Patient responds to her name but otherwise does not answer any questions. Per chart review, patient follows with [facility] primarily. Of note, patient recently admitted at [facility] forHF exacerbation in 02/2025; per chart review, patient was previously admitted previously at [facility] for MAYS and othorpnea + fluid retention for 2-3 weeks and then transferred to [facility]. [facility] radar systems engineer Dr. Flores increased her lasix from 40qd to BID, added spironolactone but had no improvement. BNPelevated to 2800s, at that time, started on IV bumex. EKG showing afib. Pt received diuresis at [facility] then GDMT was optimized to Entresto 24-26 (0.5 tab) BID, metoprolol XR 100 mg daily, spironolactone 25 mg daily, and Jardiance 10 mg daily. Valve team was consulted during this hospitalization, recommending clinic follow-up without transcatheter tricuspid valve interventions since patient is a poor candidate due to chronic tricuspid valve endocarditis and severe non-ischemic cardiomyopathy with LVEF 25%. She was admitted to cardiac ICU for cardiogenic shock. She additionally had acute encephalopathy requiring intubation and sedation Current Medications: Scheduled: Medications[1] Continuous: Medications[2] PRN: Medications[3] Vital Signs: Temp: [93.4 ??F (34.1 ??C)-99 ??F (37.2 ??C)] 97.9 ??F (36.6 ??C) Pulse: [79-125] 125 Resp: [4-20] 12 BP: (73-112)/(44-75) 97/66 Arterial Line BP #1: (86-150)/(11-62) 97/57 O2 %: [30 %] 30 % Physical Exam: General: Intubated and sedated, no acute distress Head: normocephalic, atraumatic Eyes: conjunctivae clear, extraocular muscles intact Mouth/Throat: ETT in place CV: regular rate and rhythm, no murmurs appreciated Resp: clear to auscultation bilaterally, no wheezes or crackles heard Abd: soft, nontender, nondistended, normoactive bowel sounds Extremities: no lower extremity edema, no cyanosis Skin: BLE pitting edema 2+ Neuro: moving all extremities well, no focal deficits Lab Results: Labs have been personally reviewed and are remarkable for the following: CBC: Recent Labs Component Name 05/18/2530405/17/25 1823 05/17/25 0311 WBC 4.5 4.1 4.1 HGB 13.6 13.6 12.9 HCT 37.3 37.1 37.7 MCV 91.9 90.9 94.5 Coagulation Panel: Recent Labs Component Name 05/15/25 1454 PT 29.5* INR 2.9 BMP: Recent Labs Component Name 05/18/2530405/17/25 17505/17/25 0733 NA 126* 123* 124* POTASSIUM 3.5 3.2* 3.4* CL 88* 88* 89* CO2 27 26 26 BUN 16 19 23 CREATININE 1.04* 1.04* 1.18* CALCIUM 7.7* 7.7* 8.2* Recent Labs Component Name 05/18/25 03005/17/25 2212 05/17/25 175 MAGNESIUM 1.9 1.9 2.1 Recent Labs Component Name 05/18/25 03005/17/25 17505/17/25 0733 PHOS 3.4 2.1* 2.0* Hepatic Panel: Recent Labs Component Name 05/18/25 0305 05/17/25 17505/17/25 0733 05/16/25 0827 05/15/25 2257 05/15/25 2020 05/15/25 1606 AST - 56* - - 71* - 59* ALT - 35 - - 41 - 41 ALKPHOS - 286* - - 351* - 365* TBILI - 6.1* - - 7.2* 7.0* 7.7* DBILI 4.4* - - - - 4.9* - IBILI - - - - - 2.1 - ALB 2.6* 2.6* 2.8* - 3.1* 3.1* - 3.1* - = values in this interval not displayed. ABG: Recent Labs Component Name 05/18/25 0416 05/18/25 0305 05/17/25 2212 PH 7.47* 7.49* 7.52* PCO2 41 37 35 PO2 91 91 115* Amylase/Lipase: Invalid input(s): AMYL, LIPA Thyroid Studies: No results for input(s): TSH, T4 in the last 78409 hours. Cardiac Enzymes: No results for input(s): CKTOTAL, CKMB, TROPONINI in the last 59101 hours. Invalid input(s): CKMBINDEX Lipid Panel: No results for input(s): LDLCALC, HDL in the last 18023 hours. Microbiology: Microbiology Results (Displays last 21 days for this encounter ONLY) Procedure Component Value - Date/Time CULTURE BLOOD [[id number]] Collected: 05/17/251439 Lab Status: In process Specimen: Blood Peripheral Updated: 05/17/251447 MRSA PCR [[id number]] (Normal) Collected: 05/17/251439 Lab Status: Final result Specimen: Microbiology from Nasal Updated: 05/17/252105 MRSA DNA by PCR Not detected Narrative: Methicillin-resistant Staphylococcus aureus (MRSA) DNA is not detected (presumed not colonized withMRSA). CULTURE BLOOD [[id number]] Collected: 05/17/25 1436 Lab Status: In process Specimen: Blood Peripheral Updated: 05/17/251447 Imaging: CT Head Wo Contrast Result Date: 05/17/2025 IMPRESSION: 1.No acute intracranial hemorrhage, midline shift, or mass effect. 2.Left side the sinusitis. The left nasogastric tube is in place. > Dictated by Claire Ortiz MD, (development vice president). > Dictated by Instrument Technologist I, Tripp Pablo MD have personally reviewed and interpretedthis examination/study. > Interpreting Provider: Tripp Pablo MD on 05/17/2025 9:24 AM XR Abdomen Kub Portable Result Date: 05/17/2025 IMPRESSION: Enteric tube terminates in the gastric body. > Interpreting Provider: Felipe Munoz MD on 05/17/2025 9:[address] Chest Pe W Abd Pelvis W Cont Result Date: 05/15/2025 Impression: 1.No evidence of acute pulmonary embolism. There is a retained metallic wire within oneof the right inferior lobe pulmonary arteries, likely iatrogenic. 2.Cardiomegaly and a moderate-sized pericardial effusion. Reflux of contrast into the hepatic veins suggesting right heart dysfunction. 3.Interstitial pulmonary edema, small volume ascites and diffuse body wall edema suggesting hypervolemia. Preliminary findings were discussed with the patient's care provider, Dr Sil Cordero by Dr. Tom Dinh via telephone at 05/15/2025 8:24 PM with readback comprehension and verification. > Dictated by Tom Dinh DO, (development vice president). > Dictated by Instrument Technologist I, Ann-Marie Campa MD have personally reviewed and interpreted this examination/study. > Interpreting Provider: Ann-Marie Campa MD on 05/15/2025 10:20 PM XR CHEST 2VW Result Date: 05/15/2025 IMPRESSION: A linear wire-like density projects over the right perihilar region. Cardiomegaly. Likely enlarged pulmonary arteries. Mild interstitial edema. Trace pleural effusions. No pneumothorax. > Interpreting Provider: Felipe Munoz MD on 05/15/2025 3:03 PM ASSESSMENT/PLAN: Neurological #Acute encephalopathy #Agitation - Pt noted to be obtunded at 4AM on 05/17, was given ativan earlier In the night for agitation - EEG with generalized slowing PLAN: - ICU consulted, appreciate recs for sedation - Cont precedex and propofol, wean as tolerated - Will need to address nutrition while sedated; per ICU ok to start TF at 10cc, consider starting on 05/18 (pending if getting extubated) Sedation - titrate to RASS goal of 0 to -1 - Monitor mental status every hour and notify MD if any changes - Fall precautions, Seizure precautions, HOB elevated Cardiovascular: #C/f cardiogenic shock #Hypothermia #Acute decompensated HF with reduced EF 25% #Severe TR #Peripheral edema in BLE - TTE done yesterday - Furosemide IV TID given on day of admission - metop and aldactone held on admission as pt not taking oral meds PLAN: - Cont bumex 4mg TID - Hold GDMT iso shock: holding spironactone, metop succ - Xavier hugger for hypothermia - A line placed and Manas placed - Cont levo for hypotension, MAP goal 60. #Atrial fibrillation - Cont home xarelto, had not previously been getting due to agitation Hemodynamic monitoring - Titrate pressors to minimum amount to keep MAP goal of >60mmHg Pulmonary: #Acute hypoxemic respiratory failure - Pt had to be mechanically intubated on 88 AM for c/f airway protection PLAN: - Obtain ABGs frequently to adjust vent settings; ICU c/s for vent mgmt - Titrate Fi O2 to the lowest needed to keep Sats > 92% - Keep HOB elevated 30 degrees, oral care, aspiration precautions GI: #Hyperbilirubinemia #Elevated alk phos - 2/2 congestive hepatopathy iso HF exacerbation - CTM CMP daily Nutrition: pending tube feeds for possible extubation Monitor residues on tube feeding every 4 hours and hold if > 150 cc CTM BM GI prophyalxis: PPI Renal: #Hyponatremia #Hyperkalemia - Pt hyperkalemic on arrival, shifted with insulin + dextrose and started on lokelma - Noted to be HypoNa, though baseline may be close to 130-132 - Likely hypervolemic hyponatremia iso cardiogenic shock and ADHF PLAN: - Hypertonic saline as needed - Continue diuresis with bumex as above - Holding lokelma since K has been <4 recently - Replete other lytes as needed - q6hr RFP, Mag - Nephro c/s,appreciate recs: daily urine + serum osm Electrolytes: Monitor every 6 hours and replace K if <4, Mg if <2, Phos if <2 Endocrine: #IDDM #Obesity - per notes from 04/19, home regimen is 17U lantus in AM, 12U TID AC + slide 0-10U - Noted to have hypoglycemic episode on 87AM PLAN: - Cont SSI 0-12U q6hrs, accuchecks q6hrs Monitor accuchecks every 4 hours and use sliding scale to keep glucose between 140 - 180 #Hypothyroidism - Cont home levothyroxine I.D.: #Hypothermia #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 - Pt on cefadroxil 100mg BID for chronic ppx - TTE does not show any vegetations, though noted to have L atrial mass on CCTA 07/2024 - Became hypothermic on 05/17 PLAN: - Dc home cefadroxil - Start IV cefepime - Pending infectious w/u with UA and Bcx; deescalate abx as able Ellison culture if Tmax > 100.4 Heme/Onc: PARTH Transfusion Protocol: Hb < 7, Plt < 10 Code Status: Full Code Lines: Peripheral IV Left Antecubital (Active) Placement Date/Time: 05/15/25 1451 Size (Gauge): 20 G Orientation: Left Location: Antecubital Number of days: 1 Peripheral IV Anterior;Right (Active) Placement Date/Time: 05/16/25 2200 Size (Gauge): 20 G Orientation: Anterior;Right Number of days: 0 Peripheral IV Right Antecubital (Active) Placement Date/Time: 05/16/25 2300 Size (Gauge): 20 G Orientation: Right Location: Antecubital Number of days: 0 Enteral - Nasal/Oral Naso-gastric Nostril/Nare;Left (Active) Placement Date/Time: 05/17/25 0700 Type: Naso-gastric Tube Location: Nostril/Nare;Left Internal Length (cm): 60 Number of days: 0 ETT Endotracheal Tube Cuffed-inflated 7.5 MM (Active) Placement Date/Time: 05/17/25 0327 Person who placed: Michael JIMENES Mask Ventilation: easy mask Induction: Rapid Sequence Device: Endotracheal Tube Location: Oral Tube Type: Cuffed-inflated Tube size (MM): 7.5 MM Depth of insertion: 24 CM Measur... Number of days: 0 Arterial Line (Active) Placement Date/Time: 05/17/25 1100 Placed by: Wendi Scruggs Orientation: Right Site: radial Site Prep: Chlorhexidine Local Anesthetic Used?: No Securement Method: Sutured Procedure Tolerance: Well Number of days: 0 Midline 05/17/25 0154 Right Brachial Vein (Active) Placement Date/Time: 05/17/25 0154 IV Catheter Size: (c) Other (Comments) Orientation: Right Location: Brachial Vein Site Prep: Chlorhexidine Placement Verification: Ultrasound Number of days: 0 Urethral Catheter (Active) Placement Date/Time: 05/17/25 0249 Catheter Type : Double lumen/two-way;Non-latex Catheter Balloon Inflated With: 10 mL Number of days: 0 Prophylaxis: Aspiration precautions w/ HOB elevation by 30 degrees GI prophyalxis w/ pantoprazole VTE prophyalxis w/ SCDs, Eliquis Diet: DIET NPO Except: NO EXCEPTIONS Activity: Intubated and sedated Disposition: ICU Monitoring The above assessment and plan will be discussed with the attending. This note is not final until attested by attending physician. Ida Shaw MD PGY3 05/17/2025 6:50 AM [1] 0.9% NaCl 3 mL Intracatheter q8h artificial tears Each Eye q8h bumetanide 4 mg Intravenous TID busPIRone 10 mg Enteral Tube BID cefepime 2 g Intravenous q8h chlorhexidine 15 mL Mouth/Throat BID cyanocobalamin 500 mcg Enteral Tube QDAY [Held by Provider] escitalopram 10 mg Oral QDAY insulin aspart 0-12 Units Subcutaneous q6h [Held by Provider] insulin glargine 5 Units Subcutaneous AT BEDTIME levothyroxine 75 mcg Enteral Tube QAM magnesium sulfate 2 g Intravenous Once magnesium sulfate 2 g Intravenous Once [Held by Provider] metoprolol succinate XL 24hr 100 mg Oral QDAY pantoprazole 40 mg Intravenous QDAY polyethylene glycol 3350 17 g Enteral Tube QDAY rivaroxaban 20 mg Enteral Tube QPM [Held by Provider] sodium zirconium cyclosilicate 5 g Oral TID AC [Held by Provider] spironolactone 12.5 mg Oral QDAY vancomycin 1,000 mg Intravenous q12h vancomycin (VANCOCIN) IV dose per pharmacy Does not apply DIRECTED vitamin D3 5,000 Units Enteral Tube QDAY [2] fentaNYL, 0-200 mcg/hr, Last Rate: 175 mcg/hr (05/18/25 0600) norepinephrine, 0-0.4 mcg/kg/min, Last Rate: Stopped (05/17/25 1755) propofol, 0-50 mcg/kg/min, Last Rate: 25 mcg/kg/min (05/18/25 0611) [3] SALINE LOCK, INSERT AND MAINTAIN AND 0.9% NaCl AND 0.9% NaCl acetaminophen albuterol HFA dextrose IV for hypoglycemia OR dextrose IV for hypoglycemia OR glucagon fentNYL glucose (Diabetic Use) gel hydrOXYzine HCl methocarbamol Cosigned by Linda Lezama MD at 05/18/2025 4:31 PM CDT Associated attestation - Linda Lezama MD - 05/18/2025 4:31 PM CDT ATTENDING ATTESTATION NOTE I have seen and examined the patient with the resident and I agree with the findings and plan of care as documented by the resident. Interval Hx: sedated and intubated. Norepi restarted overnight HPI: 64 yo with hx of TBI, NICM, severe TR (prior endocarditis), ICD infection (removed), admitted with severe acute decompensated HF, hyponatremia. Patient has been getting IV lasix during admission. She has severely low sodium. Elevated BrT. On exam, cool right extremity, warm on the left. Systolic murmur through the precordium. Mixed cardiogenic and vasodilatory shock Acute decompensated HF Congestive hepatopathy Hypervolumec hyponatremia Severe TR and MR Baseline traumatic brain injury Remains intubated sedated Good UOP with IV bumex - CVP still elevated. Continue TID dosing Continue Abx - MRSA nares negaive - stop vanc. Continue cefepime. No source of infection Discuss goal of care with family Rest of plan as per the resident note. Date of Service: 05/18/25 Linda Lezama MD * Radha Farrell RN - 05/18/2025 1:52 AM CDT Problem: Neurosensory - Adult Goal: Achieves stable or improved neurological status Description: INTERVENTIONS Outcome: Progressing Goal: Remains free of injury related to seizures activity Description: INTERVENTIONS: Outcome: Progressing Goal: Achieves maximal functionality and self care Description: INTERVENTIONS: Outcome: Progressing Problem: Respiratory - Adult Goal: Achieves optimal ventilation and oxygenation Description: INTERVENTIONS: Outcome: Progressing Problem: Cardiovascular - Adult Goal: Maintains optimal cardiac output and hemodynamic stability Description: INTERVENTIONS: Outcome: Progressing Goal: Absence of cardiac dysrhythmias or at baseline Description: INTERVENTIONS: Outcome: Progressing Problem: Skin/Tissue Integrity - Adult Goal: Skin integrity remains intact Description: INTERVENTIONS: Outcome: Progressing Goal: Incisions, wounds, or drain sites healing without S/S of infection Description: INFECTIONS: Outcome: Progressing Goal: Oral mucous membranes remain intact Description: INTERVENTIONS: Outcome: Progressing Problem: Neurovascular Musculoskeletal - Adult Goal: Return mobility to safest level of function Description: INTERVENTIONS: Outcome: Progressing Goal: Maintain proper alignment of affected body part Description: INTERVENTIONS: Outcome: Progressing Goal: Return ADL status to a safe level of function Description: INTERVENTIONS: Outcome: Progressing Goal: Absence or reduction of edema Description: INTERVENTIONS Outcome: Progressing Goal: Maintains or improves tissue perfusion Description: INTERVENTIONS Outcome: Progressing Problem: Genitourinary - Adult Goal: Maintains or returns to baseline genitourinary function Description: INTERVENTIONS: Outcome: Progressing Goal: Urinary catheter remains patent Description: INTERVENTIONS: Outcome: Progressing Problem: Infection - Adult Goal: Infections are decreased or avoided Description: INTERVENTIONS: Outcome: Progressing Problem: Metabolic/Fluid and Electrolytes - Adult Goal: Electrolytes maintained within normal limits Description: INTERVENTIONS: Outcome: Progressing Goal: Hemodynamic stability and optimal renal function maintained Description: INTERVENTIONS: Outcome: Progressing Goal: Glucose maintained within prescribed range Description: INTERVENTIONS: Outcome: Progressing Problem: Hematologic - Adult Goal: Maintains hematologic stability Description: INTERVENTIONS: Outcome: Progressing Problem: Pain/Discomfort Goal: Patient exhibits reduced pain/discomfort as evidenced by pain scores Outcome: Progressing Goal: Patient uses pharmacological and non-pharmacological pain management strategies. Outcome: Progressing Goal: Patient verbalizes acceptable level of pain relief and ability to engage in desired activity. Outcome: Progressing Problem: Restraint Safety Goal: Free from restraint(s) Description: INTERVENTIONS: Outcome: Progressing Goal: Remains free of injury from restraints Description: INTERVENTIONS: Outcome: Progressing Problem: Fall Risk Goal: Fall risk and fall related injury risk are minimized (interventions related to the fall risk can be found in the flowsheet documentation) Outcome: Progressing Problem: Gastrointestinal - Adult Goal: Minimal or absence of nausea and vomiting Description: INTERVENTIONS: Outcome: Progressing Goal: Maintains or returns to baseline bowel function Description: INTERVENTIONS: Outcome: Progressing Goal: Maintains adequate nutritional intake Description: INTERVENTIONS: Outcome: Progressing Problem: Anxiety Goal: Will report anxiety at manageable levels Description: INTERVENTIONS Outcome: Progressing Problem: Coping Goal: Patient/Healthcare Agent able to verbalize concerns and demonstrate effective coping strategies Description: INTERVENTIONS Outcome: Progressing Problem: Decision Making Goal: Patient/Healthcare Agent able to effectively weigh alternatives and participate in decision making related to treatment and care. Description: INTERVENTIONS Outcome: Progressing Problem: Behavior Goal: Pt/Family maintain appropriate behavior and adhere to behavioral management agreement, if implemented Description: INTERVENTIONS Outcome: Progressing Problem: Depression/Self Harm Goal: Effect of psychiatric condition will be minimized and patient will be protected from self harm Description: INTERVENTIONS Outcome: Progressing Problem: Substance Abuse/Detox Goal: Will have no detox symptoms and will verbalize plan for changing drug- related behavior Description: INTERVENTIONS Outcome: Progressing Problem: Oral Intake: Inadequate oral intake Goal: Total intake will meet estimated nutrient needs Outcome: Progressing * Víctor Guillory RCP - 05/17/2025 11:56 PM CDT Transport Start Time: 2324 Transport Assisted by 1 # of Therapists Transport From: 326 Transport To: 408 Total Transport Time: 30 Patient transported with HOB @ 30-45 degrees? y Patient's oral cavity suctioned, including above the airway cuff, prior to transport? y Patient transported on portable transport vent for duration of transport? y * Bernadette Dunbar RN - 05/17/2025 11:55 PM CDT This pt was transferred to their new room in no distress. Report was given to BROWN Garcia and all questions answered. * Umu Boateng PharmD - 05/17/2025 11:11 PM CDT ACTIVE CONSULTS TO PHARMACY/DISEASE STATE MONITORING Pharmacy Consult: Vancomycin ASSESSMENT/PLAN Indication: suspected Blood with Goal Level: AUC 400-600 based on one level estimates (TIER 2) ID consulted/following: No Assessment Microbiology: Recent Labs Component Name 05/17/25 1440 MRSADPCR Not detected History/current positive cultures for MRSA: No 05/17 MRSA PCR negative Other pertinent micro: Yes 05/17 Blood CX in process Renal: Recent Labs Component Name 05/17/25 1751 05/17/25 0733 05/17/25 0311 05/16/25 2139 CREATININE 1.04* 1.18* 1.27* 1.34* BUN 19 23 24 27* Considered difficult to accurately assess at this time as patient has Estimated Creatinine Clearance: 73.3 mL/min (A) (by C-G formula based on SCr of 1.04 mg/dL (H)). Historical dosing data that influences current dosing decisions: No Plan Regimen: Loading dose: 2500 mg Maintenance dose: 1000 mg Dosing interval: Q12 hr This regimen calculates to provide estimated AUC 400-600 mg*h/L Monitoring: Will order a vancomycin trough level prior to subsequent maintenance dose on 05/19 at 1900 and adjust regimen if indicated. Continue to monitor patient???s renal function and cultures as needed. Umu Boateng PharmD 05/17/2025 11:08 PM [facility] Vancomycin Guideline SUBJECTIVE/OBJECTIVE Loretta Penn is a 64 year old female Height: 5' 6 (167.6 cm) Wt 120.7 kg (266 lb) Body mass index is 42.93 kg/m??. Dialysis Orders (72h ago, onward) None Radiocontrast within 72 hours The 3 most recent administrations since 05/14/2025 are shown below each listed medication. Other Order Route Dose Action Date perflutren lipid microsphere (Definity) injection 1.5 mL Intravenous 1.5 mL $ Given 05/16/2025 iopamidol (Isovue 370) 76 % contrast Intravenous 100 mL $ Given - Contrast 05/15/2025 Vancomycin Administrations from DEC (last 72 hours) Date/Time Action Medication Dose Rate 05/17/252040 $ New Bag/Syringe vancomycin (Vancocin) 2,500 mg in 550 mL IVPB 2,500 mg 220 mL/hr No results for input(s): VANCORNDM, VANCTROUGH, VANCOTROUGH, VANCOPEAK in the last 50456 hours. * Tong Blas MD - 05/17/2025 9:33 PM CDT Family Notification Documentation Contact made: 05/17/2025 9:34 PM Person(s) contacted: Mounika Method of communication: Phone Phone number: [phone] Duration of discussion: 5 minutes Summary of discussion Called Mounika at request of RN to answer questions. Mounika and other sister Dilia on phone. They understand that as the night covering resident I can answer some questions but that the day team will also be able to update them further in the morning. They ask if we received any results regarding infection - updated we are still waiting on blood culture results. They ask if she is doing okay, they were updated she is now intubated for airway. At this current time, all of their questions/concerns were addressed. They mention they will be coming to bedside around 1 pm tomorrow and will talk to the team further at that time. Tong Blas MD 05/17/2025 9:37 PM * Shavon Caldwell MD - 05/17/2025 1:35 PM CDT CARDIOLOGY SERVICE CCU PROGRESS NOTE Admission Date: 05/15/2025 Patient: Loretta Penn (64 year old female) Code Status: Full Code Interval History: Overnight pt transferred to ICU given she is refusing meds and needed more frequent labs draws for hypoNa Given Ativan ~12AM for agitation in ICU Pt then became distended at 4AM, had to be intubated for airway protection Briefly on precedex prior to intubation, then switched to propofol after intubation Started on nitroprusside drip for c/f cardiogenic shock Discontinued nitroprusside this AM d/t no accurate BP readings at this time A line placed this morning Started on levo (0.02) for MAPs in 50s; discontinued as MAPs improved in afternoon Manas placed on 88 PM History of Present Illness: Loretta Penn is a 64 year-old female with past medical history significant for HFrEF (EF 25% 02/2025), severe TR, 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 Pt was initially admitted to medicine service and cardiology consulted regarding severity of heart failure and other valvular issues. On admission, labs significant for BNP 2209, trop 24-->23, Na 122, K 6.1, Cr 1.48,alk phos 365, bili 7.7. Pt was shifted with insulin + dextrose, given patiromer and. She was started on IV furosemide TID for acute HFrEF. EKG showing Qtc prolongation. Pt noted to be hypoglycemic in40s on 8 AM, hypoglycemia protocol initiated. Patient transferred to primary cardiology service on 05/16 d/t concern that patient may develop cardiogenic shock. Interview limited due to patient agitation despite having POA sister Mounika on speaker in the room. Patient responds to her name but otherwise does not answer any questions. Per chart review, patient follows with [facility] primarily. Of note, patient recently admitted at [facility] forHF exacerbation in 02/2025; per chart review, patient was previously admitted previously at [facility] for MAYS and othorpnea + fluid retention for 2-3 weeks and then transferred to [facility]. [facility] radar systems engineer Dr. Flores increased her lasix from 40qd to BID, added spironolactone but had no improvement. BNPelevated to 2800s, at that time, started on IV bumex. EKG showing afib. Pt received diuresis at [facility] then GDMT was optimized to Entresto 24-26 (0.5 tab) BID, metoprolol XR 100 mg daily, spironolactone 25 mg daily, and Jardiance 10 mg daily. Valve team was consulted during this hospitalization, recommending clinic follow-up without transcatheter tricuspid valve interventions since patient is a poor candidate due to chronic tricuspid valve endocarditis and severe non-ischemic cardiomyopathy with LVEF 25%. Current Medications: Scheduled: Medications[1] Continuous: Medications[2] PRN: Medications[3] Vital Signs: Temp: [93.4 ??F (34.1 ??C)-98.5 ??F (36.9 ??C)] 94.1 ??F (34.5 ??C) Pulse: [74-127] 81 Resp: [9-24] 15 BP: (73-151)/(40-135) 104/65 Arterial Line BP #1: (101-150)/(11-56) 104/56 O2 %: [30 %-40 %] 30 % Physical Exam: General: Intubated and sedated, no acute distress Head: normocephalic, atraumatic Eyes: conjunctivae clear, extraocular muscles intact Mouth/Throat: ETT in place CV: regular rate and rhythm, no murmurs appreciated Resp: clear to auscultation bilaterally, no wheezes or crackles heard Abd: soft, nontender, nondistended, normoactive bowel sounds Extremities: no lower extremity edema, no cyanosis Skin: BLE pitting edema 2+ Neuro: moving all extremities well, no focal deficits Lab Results: Labs have been personally reviewed and are remarkable for the following: CBC: Recent Labs Component Name 05/17/2531005/15/25225605/15/25 1454 WBC 4.1 3.9* 3.9* HGB 12.9 13.7 14.6 HCT 37.7 39.6 43.4 MCV 94.5 96.1 97.7 Coagulation Panel: Recent Labs Component Name 05/15/25 1454 PT 29.5* INR 2.9 BMP: Recent Labs Component Name 05/17/25 0705/17/2531005/16/25 2139 NA 124* 123* 123* 121* POTASSIUM 3.4* 3.7 4.6* CL 89* 89* 86* CO2 26 26 25 BUN 23 24 27* CREATININE 1.18* 1.27* 1.34* CALCIUM 8.2* 8.3* 8.9 Recent Labs Component Name 05/17/25 0950 05/17/2531005/16/25 2139 MAGNESIUM 2.1 1.9 2.0 Recent Labs Component Name 05/17/25 0733 05/17/2531005/16/25 2139 PHOS 2.0* 3.1 3.6 Hepatic Panel: Recent Labs Component Name 05/17/25 0733 05/17/2531005/16/25 2139 05/16/25 0827 05/15/25225605/15/25 2020 05/15/25 1606 AST - - - - 71* - 59* ALT - - - - 41 - 41 ALKPHOS - - - - 351* - 365* TBILI - - - - 7.2* 7.0* 7.7* DBILI - - - - - 4.9* - IBILI - - - - - 2.1 - ALB 2.8* 2.7* 3.0* - 3.1* 3.1* - 3.1* - = values in this interval not displayed. ABG: Recent Labs Component Name 05/17/25 1219 05/17/25 0410 PH 7.54* 7.50* PCO2 29* - PO2 95 - Amylase/Lipase: Invalid input(s): AMYL, LIPA Thyroid Studies: No results for input(s): TSH, T4 in the last 88096 hours. Cardiac Enzymes: No results for input(s): CKTOTAL, CKMB, TROPONINI in the last 82726 hours. Invalid input(s): CKMBINDEX Lipid Panel: No results for input(s): LDLCALC, HDL in the last 98318 hours. Microbiology: Microbiology Results (Displays last 21 days for this encounter ONLY) No results found for the last 504 hours. Imaging: CT Head Wo Contrast Result Date: 05/17/2025 IMPRESSION: 1.No acute intracranial hemorrhage, midline shift, or mass effect. 2.Left side the sinusitis. The left nasogastric tube is in place. > Dictated by Claire Ortiz MD, (development vice president). > Dictated by Instrument Technologist I, Tripp Pablo MD have personally reviewed and interpretedthis examination/study. > Interpreting Provider: Tripp Pablo MD on 05/17/2025 9:24 AM XR Abdomen Kub Portable Result Date: 05/17/2025 IMPRESSION: Enteric tube terminates in the gastric body. > Interpreting Provider: Felipe Munoz MD on 05/17/2025 9:[address] Chest Pe W Abd Pelvis W Cont Result Date: 05/15/2025 Impression: 1.No evidence of acute pulmonary embolism. There is a retained metallic wire within oneof the right inferior lobe pulmonary arteries, likely iatrogenic. 2.Cardiomegaly and a moderate-sized pericardial effusion. Reflux of contrast into the hepatic veins suggesting right heart dysfunction. 3.Interstitial pulmonary edema, small volume ascites and diffuse body wall edema suggesting hypervolemia. Preliminary findings were discussed with the patient's care provider, Dr Sil Cordero by Dr. Tom Dinh via telephone at 05/15/2025 8:24 PM with readback comprehension and verification. > Dictated by Tom Dinh DO, (development vice president). > Dictated by Instrument Technologist I, Ann-Marie Campa MD have personally reviewed and interpreted this examination/study. > Interpreting Provider: Ann-Marie Campa MD on 05/15/2025 10:20 PM XR CHEST 2VW Result Date: 05/15/2025 IMPRESSION: A linear wire-like density projects over the right perihilar region. Cardiomegaly. Likely enlarged pulmonary arteries. Mild interstitial edema. Trace pleural effusions. No pneumothorax. > Interpreting Provider: Felipe Munoz MD on 05/15/2025 3:03 PM ASSESSMENT/PLAN: Neurological #Acute encephalopathy #Agitation - Pt noted to be obtunded at 4AM on 05/17, was given ativan earlier In the night for agitation PLAN: - ICU consulted, appreciate recs for sedation - Cont fentanyl gtt and propofol gtt at this time - Will need to address nutrition while sedated; per ICU ok to start TF at 10cc, consider starting on 05/18 Sedation - titrate to RASS goal of 0 to -1 - Monitor mental status every hour and notify MD if any changes - Fall precautions, Seizure precautions, HOB elevated Cardiovascular: #C/f cardiogenic shock #Hypothermia #Acute decompensated HF with reduced EF 25% #Severe TR #Peripheral edema in BLE - TTE done yesterday - Furosemide IV TID given on day of admission - metop and aldactone held on admission as pt not taking oral meds PLAN: - Cont bumex 4mg TID - Hold GDMT iso shock: holding spironactone, metop succ - Xavier hugger for hypothermia - Will need plan for drips: nitroprusside discontinued earlier today since no A line in for accurate hemodynamics. - A line placed and Manas placed - Cont levo for hypotension, MAP goal 60. #Atrial fibrillation - Cont home Eliquis Hemodynamic monitoring - Titrate pressors to minimum amount to keep MAP goal of >60mmHg Pulmonary: #Acute hypoxemic respiratory failure - Pt had to be mechanically intubated on 05/17 AM for c/f airway protection PLAN: - Obtain ABGs frequently to adjust vent settings; ICU c/s for vent mgmt - Titrate Fi O2 to the lowest needed to keep Sats > 92% - Keep HOB elevated 30 degrees, oral care, aspiration precautions GI: #Hyperbilirubinemia #Elevated alk phos - 2/2 congestive hepatopathy iso HF exacerbation - CTM CMP daily Nutrition: Start TF on 05/18, start trickle feeds at 10cc Monitor residues on tube feeding every 4 hours and hold if > 150 cc CTM BM GI prophyalxis: PPI Renal: #Hyponatremia #Hyperkalemia - Pt hyperkalemic on arrival, shifted with insulin + dextrose and started on lokelma - Noted to be HypoNa, though baseline may be close to 130-132 - Likely hypervolemic hyponatremia iso cardiogenic shock and ADHF PLAN: - Hypertonic saline as needed - Continue diuresis with bumex as above - Holding lokelma since K has been <4 recently - Replete other lytes as needed - q6hr RFP, Mag - Nephro c/s,appreciate recs: daily urine + serum osm Electrolytes: Monitor every 6 hours and replace K if <4, Mg if <2, Phos if <2 Endocrine: #IDDM #Obesity - per notes from 04/19, home regimen is 17U lantus in AM, 12U TID AC + slide 0-10U - Noted to have hypoglycemic episode on 7AM PLAN: - Restarted glargine 5U qhs - Cont SSI 0-12U q6hrs, accuchecks q6hrs Monitor accuchecks every 4 hours and use sliding scale to keep glucose between 140 - 180 #Hypothyroidism - Cont home levothyroxine I.D.: #Hypothermia #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 - Pt on cefadroxil 100mg BID for chronic ppx - TTE does not show any vegetations, though noted to have L atrial mass on CCTA 07/2024 - Became hypothermic on 05/17 PLAN: - Dc home cefadroxil - Start IV cefepime - Pending infectious w/u with UA and Bcx; deescalate abx as able Ellison culture if Tmax > 100.4 Heme/Onc: PARTH Transfusion Protocol: Hb < 7, Plt < 10 Code Status: Full Code Lines: Peripheral IV Left Antecubital (Active) Placement Date/Time: 05/15/25 1451 Size (Gauge): 20 G Orientation: Left Location: Antecubital Number of days: 1 Peripheral IV Anterior;Right (Active) Placement Date/Time: 05/16/25 2200 Size (Gauge): 20 G Orientation: Anterior;Right Number of days: 0 Peripheral IV Right Antecubital (Active) Placement Date/Time: 05/16/25 2300 Size (Gauge): 20 G Orientation: Right Location: Antecubital Number of days: 0 Enteral - Nasal/Oral Naso-gastric Nostril/Nare;Left (Active) Placement Date/Time: 05/17/25 0700 Type: Naso-gastric Tube Location: Nostril/Nare;Left Internal Length (cm): 60 Number of days: 0 ETT Endotracheal Tube Cuffed-inflated 7.5 MM (Active) Placement Date/Time: 05/17/25 0327 Person who placed: Michael JIMENES Mask Ventilation: easy mask Induction: Rapid Sequence Device: Endotracheal Tube Location: Oral Tube Type: Cuffed-inflated Tube size (MM): 7.5 MM Depth of insertion: 24 CM Measur... Number of days: 0 Arterial Line (Active) Placement Date/Time: 05/17/25 1100 Placed by: Wendi Scruggs Orientation: Right Site: radial Site Prep: Chlorhexidine Local Anesthetic Used?: No Securement Method: Sutured Procedure Tolerance: Well Number of days: 0 Midline 05/17/25 0154 Right Brachial Vein (Active) Placement Date/Time: 05/17/25 0154 IV Catheter Size: (c) Other (Comments) Orientation: Right Location: Brachial Vein Site Prep: Chlorhexidine Placement Verification: Ultrasound Number of days: 0 Urethral Catheter (Active) Placement Date/Time: 05/17/25 0249 Catheter Type : Double lumen/two-way;Non-latex Catheter Balloon Inflated With: 10 mL Number of days: 0 Prophylaxis: Aspiration precautions w/ HOB elevation by 30 degrees GI prophyalxis w/ pantoprazole VTE prophyalxis w/ SCDs, Eliquis Diet: DIET NPO Except: NO EXCEPTIONS Activity: Intubated and sedated Disposition: ICU Monitoring The above assessment and plan will be discussed with the attending. This note is not final until attested by attending physician. Shavon Caldwell MD Internal Medicine PGY2 05/17/2025 1:35 PM [1] 0.9% NaCl 3 mL Intracatheter q8h artificial tears Each Eye q8h bumetanide 4 mg Intravenous TID busPIRone 10 mg Enteral Tube BID cephalexin 500 mg Enteral Tube q12h chlorhexidine 15 mL Mouth/Throat BID [START ON 05/18/2025] cyanocobalamin 500 mcg Enteral Tube QDAY [Held by Provider] escitalopram 10 mg Oral QDAY insulin aspart 0-12 Units Subcutaneous q6h insulin glargine 5 Units Subcutaneous AT BEDTIME iopamidol Intravenous Contrast - Once [START ON 05/18/2025] levothyroxine 75 mcg Enteral Tube QAM [Held by Provider] metoprolol succinate XL 24hr 100 mg Oral QDAY norepinephrine pantoprazole 40 mg Intravenous QDAY phenylephrine [START ON 05/18/2025] rivaroxaban 20 mg Enteral Tube QPM [Held by Provider] sodium zirconium cyclosilicate 5 g Oral TID AC [Held by Provider] spironolactone 12.5 mg Oral QDAY [START ON 05/18/2025] vitamin D3 5,000 Units Enteral Tube QDAY [2] fentaNYL, 0-200 mcg/hr, Last Rate: 125 mcg/hr (05/17/25 1300) norepinephrine, 0-0.4 mcg/kg/min, Last Rate: Stopped (05/17/25 1140) propofol, 0-50 mcg/kg/min, Last Rate: 20 mcg/kg/min (05/17/25 1315) [3] SALINE LOCK, INSERT AND MAINTAIN AND 0.9% NaCl AND 0.9% NaCl acetaminophen albuterol HFA dextrose IV for hypoglycemia OR dextrose IV for hypoglycemia OR glucagon fentNYL glucose (Diabetic Use) gel hydrOXYzine HCl methocarbamol norepinephrine phenylephrine polyethylene glycol 3350 Cosigned by Linda Lezaam MD at 05/18/2025 8:29 AM CDT Associated attestation - Linda Lezama MD - 05/18/2025 8:29 AM CDT ATTENDING ATTESTATION NOTE I have seen and examined the patient with the resident and I agree with the findings and plan of care as documented by the resident. Interval Hx: Very agitated Overnight in ICU - started on precedex, once time IV ativan. Became somnolent and intubated. Was normotensive - nipride started. This morning hypotensive. Levophed started. HPI: 64 yo with hx of TBI, NICM, severe TR (prior endocarditis), ICD infection (removed), admitted with severe acute decompensated HF, hyponatremia. Patient has been getting IV lasix during admission. She has severely low sodium. Elevated BrT. On exam, cool right extremity, warm on the left. Systolic murmur through the precordium. Cardiogenic shock Acute decompensated HF Congestive hepatopathy Hypervolumec hyponatremia Severe TR and MR Baseline traumatic brain injury Now intubated sedated Good UOP with IV bumex BP getting low - stop nipride this morning. - lactate was improving on nipride Invasive Hemodynamic monitoring - Central line and [place] - arterial line Assess need for inotropes vs pressors once obtain hemodynamics Consider tovalptan if remains hyponatremic Received also hypertonic saline Discuss goal of care with family Rest of plan as per the resident note. Date of Service: 05/18/25 Linda Lezama MD * Ha Hernandez MD - 05/17/2025 11:15 AM CDT MICU Progress note Loretta Penn 64 year old Code Status: Full Code Primary Team: Cardiology Consult: Critical Care Consult (MICU 4) Subjective: Loretta Penn is a 64 year old female with history of HFrEF (EF 25% 02/2025), severe TR, MSSATV endocarditis with AICD removal in 07/2024, Afib on Xarelto, morbid obesity, intellectual disability due to TBI, HTN, IDDM, and hypothyroidism who presented to [facility] on 05/16/25 for generalized swelling and 9 lbs weight gain. She was admitted to the floor with cardiology consult for acute HFrEF exacerbation and started on IV lasix TID. Hospital course complicated by hyponatremia, hyperkalemia (s/pinsulin/dextrose, Veltassa) and hypoglycemia. On 05/16, transferred to cardiology as primary service due to concerns for potential cardiogenic shock. Nephrology consulted for hyponatremia and recommended IV bumex 4 mg BID and 1 liter free water restriction. Due to persistent agitation and inability to comply with medical therapy, patient with transfer orders to the ICU. Critical care consulted for sedation recommendations. She was intubated on 05/17/25 due to obtundation. Interval History: Remained on the ventilator cEEG for evaluation of seizures A line placed Objective: Review of Systems Positives in bold Constitutional: fevers, chills, sweats, fatigue, weight loss/gain, chronic pain HEENT: head trauma, vision/hearing/voice changes, eye/ear/throat pain Respiratory: cough, shortness of breath, hemoptysis, sputum Cardiovascular: chest pain/discomfort, dyspnea on exertion, orthopnea, PND, palpitations Gastrointestinal: nausea/vomiting, diarrhea, constipation, melena, abdominal pain Genitourinary: dysuria, urgency, frequency, incontinence, hematuria Integument: rash, ulcers, itching Hematologic/lymphatic: easy bruising, bleeding Musculoskeletal: myalgias, arthralgias Neurological: headaches, dizziness, numbness, tingling, seizures Behavioral/Psych: anxiety, depression, memory problems Endocrine: polyuria, polydipsia, polyphagia, heat/cold intolerance Objective: Vitals Vitals: 05/17/25 0900 05/17/25 0924 05/17/25 0927 05/17/25 1000 BP: 85/44 (!) 79/44 83/47 112/75 Pulse: 108 81 87 Resp: 17 15 15 Temp: SpO2: (!) 63% 99% 94% Weight: Height: I&O Intake/Output Summary (Last 24 hours) at 05/17/2025 1115 Last data filed at 05/17/2025 1100 Gross per 24 hour Intake 652.67 ml Output 3725 ml Net -3072.33 ml Physical Exam General - Appears stated age HEENT - NC/AT, PERRL Neck - Supple, no LAD, no JVD Chest - CTAB no w/c/r CV - RRR no murmurs Abdomen - Soft, NT/ND Musculoskeletal - Moves all four extremities Extremities - No peripheral edema Neurologic - A&O x 3 Data Review: Recent Labs Component Name 05/17/25 0733 05/17/2531005/16/25 2139 05/16/25 1750 05/16/25 0827 05/15/25 22505/15/25201905/15/25 1606 NA 124* 123* 123* 121* 121* - 122* 122* - 122* CL 89* 89* 86* 86* - 90* 90* - 91* CO2 26 26 25 21* - 22 22 - 22 BUN 23 24 27* 30* - 30* 30* - 31* CREATININE 1.18* 1.27* 1.34* 1.36* - 1.48* 1.48* - 1.48* CALCIUM 8.2* 8.3* 8.9 9.5 - 9.8 9.8 - 9.3 PHOS 2.0* 3.1 3.6 3.7 - 4.5 - - PROT - - - - - 6.9 - 7.0 ALB 2.8* 2.7* 3.0* 3.1* - 3.1* 3.1* - 3.1* ALT - - - - - 41 - 41 AST - - - - - 71* - 59* ALKPHOS - - - - - 351* - 365* TBILI - - - - - 7.2* 7.0* 7.7* - = values in this interval not displayed. No results for input(s): PHART, YXN4IZD, PO2ART, IKQ3HSR in the last 73162 hours. Recent Labs Component Name 05/17/2531005/15/25225605/15/25 1454 RBC 3.99 4.12 4.44 HGB 12.9 13.7 14.6 HCT 37.7 39.6 43.4 MCV 94.5 96.1 97.7 WBC 4.1 3.9* 3.9* Recent Labs Component Name 05/15/25 1454 PT 29.5* INR 2.9 Lab results smartLinks are not currently available Radiology: reviewed Assessment/Plan: Acute encephalopathy likely from lorazepam requiring intubation Intellectual disability due to TBI Acute HFrEF exacerbation Severe MR and TR Hypervolemic Hyponatremia Hyperkalemia History of MSSA endocarditis T2DM Obesity Hypothyroidsm Prolonged QTc Critical care was necessary to treat or prevent life-threatening deterioration of the following: Acute hypoxic respiratory failure Acute encephalopathy Titratable gtts postoperative The plan of care consists of: Neuro: Sedation: fentanyl and propofol for RASS 0 to -1 Delirium ppx: Encourage normal sleep-wake cycle: lights on during day, lights off at night, frequent re-orientation, minimize sleep interruptions. Avoid sedating meds like benzos and antipsychotics Pain control per primary Psychotropic agents as per primary team- avoid polypharmacy Cardiac: Hemodynamic monitoring - Titrate MAP to goal of >65 mmHg Titrate pressor to min amt keep to goal of above MAP Levophed for MAP goal Bumex for diuresis Pulmonary: Acute hypoxic respiratory failure- continue MV- not a candidate for liberation Get stat ABG and will adjust vent settings Aggressive chest physiotherapy with aerobika and IS Encourage ambulation, OOB, PT/OT to avoid post op atelectasis Titrate Fi O2 to the lowest needed to keep Sats > 92% Keep HOP elevated 30 degrees, oral care, aspiration precautions GI: Bowel velia Start tube feeds at 10 cc per hour Renal: Monitor renal function, lytes, I/O Avoid nephrotoxic agents Replete electrolytes if K<4, Phos<3, Mag<2 Hem-onc: Monitor H&H, transfuse for Hb < 7, plt < 10 (< 50 if bleeding) Endocrine: Trend Glucose, goal 140-180 Synthroid 75 mcg daily Lantus 5 units at bedtime and medium dose slide ID: No concern for infection Musculoskeletal: PT/OT DVT ppx: Heparin I spent 38 minutes in full attendance with this critically-ill patient. Time spent was exclusive ofseparately billed procedures, treating other patients, and teaching time. I have reviewed and agreewith resident documentation. Pt. is at high risk for complications and morbidity or mortality Pt. is critically ill with vital organ impairment or failure There is high probability of imminent or life threatening deterioration in the patient's condition Time involved in the performance of separately billable procedures, teaching, reviewing education material was not counted towards critical care time. Patient is unable or incompetent to participate in giving a history and/or making decisions and discussion is necessary for determining treatment decisions. Date of service: 05/17/2025 Ha Hernandez MD Business Unit Managerconsumer relations complaint clerk Division of Pulmonary, Critical Care, & Sleep Medicine [facility] * Amina Kruger RN - 05/17/2025 10:40 AM CDT Care Coordination Progress Note Patient new to caseload Expected Discharge Date: 05/20/2025 Discharge Plan: Patient newly added to caseload following transfer from medical floor to ICU dueto decreased mentation. Patient is currently intubated and sedated. Disposition remains undetermined and will depend on clinical course. PLOF was independent at home, living alone with durable medical equipment (DME) and chore-worker support. Patient is not currently medically appropriate for discharge planning. Awaiting further clinical updates to determine next level of care. will continue to follow for discharge planning and coordination of post-acute care needs as patient???s condition evolves. Family Support (Name and Phone): Extended Emergency Contact Information Primary Emergency Contact: Mounika Rice [address]: [address] [place] [address] Mobile Relation: None Transportation at Discharge: Family: READMISSION RISK SCORE is 15 at 10:40 AM 05/17/2025.: Name: Amina Kruger RN [phone] * Ynes Clarke RCP - 05/17/2025 3:37 AM CDT Date and Time of Intubation: 326 Size of Tube Placed: 7.5 Tube secured with: tube russo Correct Tube Placement Verified by CXR? ordered CO2 Detector or Portable Capnometer Used? yes Breath Sounds Post-Intubation: bilateral Symmetrical Chest Rise and Fall Noted? yes ETT position at teeth or lips: 24 @ teeth Intubation Assist Charged? yes (Do Not Charge in ED) * Geo Cee MD - 05/17/2025 3:26 AM CDT Called to bedside for change in patient mental status, now obtunded and not responding to painful stimuli. Concern for airway protection, MICU called to bedside for intubation for airway protection. At bedside, patient wearing non- rebreather mask at 15L; not responding to painful stimuli but maintaing O2 sat ~90s. PLAN - ABG ordered - MICU consulted for intubation for airway protection - Sedation: fentanyl, propofol; RASS 0 to -1 - cEEG ordered to rule out sublinical seizures * Naa Logan RN - 05/16/2025 12:19 PM CDT Care Coordination Initial Assessment Expected Discharge Date: 05/20/2025 Expected Discharge Disposition: Home Health Services (Resume [facility] with [facility]) Transportation at Discharge: Family Prior Level of Care: Home Prior to Admit Provider: PCP: JOHN Klein [phone] Comments: 64 year old female PMH as noted below who presents with weakness and fatigue x 1 day. States dose of water pill was increased 2 weeks ago. States legs are swelling, she feels short of breath and she is gaining weight, 42 lbs over 1 month Lives with: Alone (two sisters there around clock, nephew lives next door) Physical Limitations: Ambulation with use of DME (walker) Requires Assistance With: Mobility;Housekeeping;Meal Preparation;Medication Administration;Shopping [id number] [phone] [facility] [id number] [address] [facility] [id number] READMISSION RISK SCORE is 14 at 12:19 PM 05/16/2025. Met with patient and sister Mounika. Demographics verified. Patient sister Mounika in room and completed assessment questions with CM. Patient lives alone in house and two sisters Mounika and Inessa are their usually around the clock. Patient sister Dilia is technicians and trades workers with [employer] and has 124 hrs/month. Patients nephew lives next door. Patient is independent with ADL's PLOF until admit but mayneed assistance now per her sister. Patient uses wheeled walker at baseline. Denies any falls in last 6 months. Patient has a intellectual impairment. Patient currently being seen by a nurse with [facility] prior to admit and family would like to resume services on discharge if patient level of care is home health care. CM made treatment team aware during MDR rounds today. Patient sister Mounika plans to transport patient home on discharge. Family Support (name and phone): Extended Emergency Contact Information Primary Emergency Contact: Mounika Rice Address: [address] [place] [address] Mobile Relation: None Patient or sales representative education courses requests care coordination reach out to family or caregiver listed above regarding discharge planning and at time of discharge? No Durable Medical Equipment Planning Type of Walker: Front Wheeled Walker List DME pt. requires but does not have.: None Ice Cream Mixer Referral: No Will continue to follow. For any questions or needs please contact: Leather Production Artisan/Social Work Name/Phone number: Naa Logan RN [phone] * Ivette Urbina RN - 05/16/2025 10:11 AM CDT 0715- Blood glucose 107 0900- Blood glucose 0901- MD bedside. Dextrose IV 25g given by rn relief charge 0910- Blood glucose 207 0923- Blood glucose 189 0946- Blood glucose 146 1000- MD bedside and notified of glucose trending down and sodium 121 1855- Message vis secure chat to Dr. Caldwell informing of sodium 121 and lactic 3.5. MD aware * Marek Moore - 05/16/2025 7:27 AM CDT [facility] INTERNAL MEDICINE PROGRESS NOTE Patient: Loretta Penn Sex: female Age: [age] year old Date of : 1960 Date of Admission: 05/15/2025 Date: 05/16/2025 LOS: 1 SUBJECTIVE Interval History: Glucose levels labile - dropped to 44 and received dextrose push. Patient was initially somnolent and not eating despite sister being at bedside. Became tearful and agitated following glucose sticks and morning labs. Says she is hungry, but is refusing foods from cardiac diet (sister says patient prefers junk foods like arabic fries and hamburgers). Patient not answering basic questions, but doesnot seem altered beyond baseline (sister says patient can become uncooperative during child-like tantrums). Hospital Course: 64F admitted for swelling; PMH of HFrEF (s/p AICD removal 2/2 infected device), tricuspid regurgitation (with former MSSA endocarditis), atrial fibrillation, HTN, T2DM, hypothyroidism, and traumatic brain injury (with intellectual disability). - 05/15/25: admitted; hyperkalemic (6.0) and hyponatremic (122); started on IV diuretics and potassium binders. - 05/16/25: potassium improved (4.7); sodium levels not improving (121) - increased frequency of high dose diuretics. OBJECTIVE Vital Signs: Vitals: 05/15/25 1619 05/15/25 2205 05/16/25 0029 05/16/25 0400 BP: (!) 156/125 141/63 105/62 Pulse: 103 93 87 Resp: 17 17 18 Temp: 97.2 ??F (36.2 ??C) 97.5 ??F (36.4 ??C) 97.3 ??F (36.3 ??C) SpO2: 99% 99% 98% Weight: 120.3 kg (265 lb 4.8 oz) 120.7 kg (266 lb) Height: 1.676 m (5' 6) Temp Min: 97 ??F (36.1 ??C) Max: 97.5 ??F (36.4 ??C), Pulse Min: 87 Max: 103, Resp Min: 17 Max: 19,BP Min: 105/62 Max: 157/144 Intake & Output: In: 280 [P.O.:280] Out: 480 [Urine:480] Physical Exam Unable to examine: patient was agitated. Current Medications: Scheduled: Medications[1] Continuous: Medications[2] PRN: Medications[3] Significant Lab Results: Results for orders placed or performed during the hospital encounter of 05/15/25 (from the past 24 hours) CBC W AUTO DIFFERENTIAL Result Value Ref Range WBC 3.9 (L) 4.0 - 10.7 x10E9/L RBC Count 4.44 3.90 - 5.20 x10E12/L Hemoglobin 14.6 11.9 - 15.8 g/dL Hematocrit 43.4 34.8 - 46.1 % MCV 97.7 80.0 - 98.0 fL MCH 32.9 26.7 - 33.6 pg MCHC 33.6 31.7 - 36.3 g/dL RDW-CV 18.5 (H) 11.3 - 14.8 % Platelet Count 203 150 - 420 x10E9/L MPV 10.0 7.8 - 11.4 fL Neutrophil % 71.5 41.0 - 74.0 % Lymphocyte % 16.5 (L) 17.0 - 47.0 % Monocyte % 9.9 3.0 - 11.0 % Eosinophil % 0.8 0.0 - 7.0 % Basophil % 1.0 0.0 - 1.6 % Immature Granulocytes % 0.3 0.0 - 1.0 % Neutrophil Absolute 2.82 1.60 - 7.50 x10E9/L Lymphocyte Absolute 0.65 (L) 1.00 - 4.40 x10E9/L Monocyte Absolute 0.39 0.15 - 1.00 x10E9/L Eosinophil Absolute 0.03 0.00 - 0.60 x10E9/L Basophil Absolute 0.04 0.00 - 0.13 x10E9/L TROPONIN-I HIGH SENSITIVE BASELINE + 1HR Result Value Ref Range Troponin I High Sensitive 24 (H) <=14 ng/L LIPASE BLOOD Result Value Ref Range Lipase 7 (L) 8 - 78 U/L PT-INR Result Value Ref Range PT 29.5 (H) 12.1 - 14.8 Seconds INR 2.9 See Comment B-TYPE NATRIURETIC PEPTIDE Result Value Ref Range BNP 2,209 (H) <100 pg/mL COMPREHENSIVE METABOLIC PANEL Result Value Ref Range BUN 31 (H) 7 - 26 mg/dL Creatinine 1.48 (H) 0.56 - 0.96 mg/dL Sodium 122 (LL) 136 - 145 mmol/L Potassium 6.1 (HH) 3.5 - 4.5 mmol/L Chloride 91 (L) 98 - 107 mmol/L CO2 22 22 - 29 mmol/L Glucose 164 (H) 70 - 99 mg/dL Calcium 9.3 8.4 - 10.2 mg/dL Protein Total 7.0 6.0 - 8.3 g/dL Albumin 3.1 (L) 3.4 - 5.0 g/dL Bilirubin Total 7.7 (H) 0.2 - 1.2 mg/dL Alkaline Phosphatase 365 (H) 40 - 150 U/L ALT 41 5 - 55 U/L AST 59 (H) 5 - 34 U/L Anion Gap 9 6 - 16 BUN/Creatinine Ratio 21 7 - 23 Osmolality Calculated 264 (L) 275 - 295 mOsm/kg Albumin/Globulin Ratio 0.8 (L) 1.1 - 2.3 eGFR by CKD-EPI 40 (L) >=90 mL/min/1.73 m2 MAGNESIUM BLOOD Result Value Ref Range Magnesium 2.2 1.6 - 2.6 mg/dL TROPONIN-I HIGH SENSITIVE REFLEX 1HOUR Result Value Ref Range Troponin I High Sensitive 23 (H) <=14 ng/L Delta Troponin I HS <0 <6 ng/L GLUCOSE - POINT OF CARE Result Value Ref Range Glucose WB/POC 225 (H) 70 - 99 mg/dL Specimen Type Arterial/Capillary BILIRUBIN TOTAL+DIRECT BLOOD PANEL Result Value Ref Range Bilirubin Total 7.0 (H) 0.2 - 1.2 mg/dL Bilirubin Conjugated 4.9 (H) 0.1 - 0.5 mg/dL Bilirubin Unconjugated 2.1 Unconjugated Bilirubin is a calculated value: Reference ranges have not been established. mg/dL RENAL FUNCTION PANEL Result Value Ref Range BUN 30 (H) 7 - 26 mg/dL Creatinine 1.48 (H) 0.56 - 0.96 mg/dL Sodium 122 (LL) 136 - 145 mmol/L Potassium 6.1 (HH) 3.5 - 4.5 mmol/L Chloride 90 (L) 98 - 107 mmol/L CO2 22 22 - 29 mmol/L Glucose 218 (H) 70 - 99 mg/dL Albumin 3.1 (L) 3.4 - 5.0 g/dL Calcium 9.8 8.4 - 10.2 mg/dL Phosphorus 4.5 2.9 - 5.1 mg/dL Anion Gap 10 6 - 16 BUN/Creatinine Ratio 20 7 - 23 Osmolality Calculated 267 (L) 275 - 295 mOsm/kg eGFR by CKD-EPI 40 (L) >=90 mL/min/1.73 m2 MAGNESIUM BLOOD Result Value Ref Range Magnesium 2.2 1.6 - 2.6 mg/dL MAGNESIUM BLOOD Result Value Ref Range Magnesium 2.2 1.6 - 2.6 mg/dL CBC W AUTO DIFFERENTIAL Result Value Ref Range WBC 3.9 (L) 4.0 - 10.7 x10E9/L RBC Count 4.12 3.90 - 5.20 x10E12/L Hemoglobin 13.7 11.9 - 15.8 g/dL Hematocrit 39.6 34.8 - 46.1 % MCV 96.1 80.0 - 98.0 fL MCH 33.3 26.7 - 33.6 pg MCHC 34.6 31.7 - 36.3 g/dL RDW-CV 18.6 (H) 11.3 - 14.8 % Platelet Count 199 150 - 420 x10E9/L MPV 10.4 7.8 - 11.4 fL Neutrophil % 68.5 41.0 - 74.0 % Lymphocyte % 17.8 17.0 - 47.0 % Monocyte % 10.9 3.0 - 11.0 % Eosinophil % 1.3 0.0 - 7.0 % Basophil % 1.0 0.0 - 1.6 % Immature Granulocytes % 0.5 0.0 - 1.0 % Neutrophil Absolute 2.69 1.60 - 7.50 x10E9/L Lymphocyte Absolute 0.70 (L) 1.00 - 4.40 x10E9/L Monocyte Absolute 0.43 0.15 - 1.00 x10E9/L Eosinophil Absolute 0.05 0.00 - 0.60 x10E9/L Basophil Absolute 0.04 0.00 - 0.13 x10E9/L COMPREHENSIVE METABOLIC PANEL Result Value Ref Range BUN 30 (H) 7 - 26 mg/dL Creatinine 1.48 (H) 0.56 - 0.96 mg/dL Sodium 122 (LL) 136 - 145 mmol/L Potassium 6.1 (HH) 3.5 - 4.5 mmol/L Chloride 90 (L) 98 - 107 mmol/L CO2 22 22 - 29 mmol/L Glucose 218 (H) 70 - 99 mg/dL Calcium 9.8 8.4 - 10.2 mg/dL Protein Total 6.9 6.0 - 8.3 g/dL Albumin 3.1 (L) 3.4 - 5.0 g/dL Bilirubin Total 7.2 (H) 0.2 - 1.2 mg/dL Alkaline Phosphatase 351 (H) 40 - 150 U/L ALT 41 5 - 55 U/L AST 71 (H) 5 - 34 U/L Anion Gap 10 6 - 16 BUN/Creatinine Ratio 20 7 - 23 Osmolality Calculated 267 (L) 275 - 295 mOsm/kg Albumin/Globulin Ratio 0.8 (L) 1.1 - 2.3 eGFR by CKD-EPI 40 (L) >=90 mL/min/1.73 m2 GLUCOSE - POINT OF CARE Result Value Ref Range Glucose WB/POC 378 (H) 70 - 99 mg/dL Specimen Type Arterial/Capillary URINALYSIS REFLEX TO MICROSCOPIC NO CULTURE Specimen: Urine Clean Catch Result Value Ref Range Color UA Yellow Yellow, Straw Clarity UA Clear Clear Glucose UA Normal Normal Bilirubin UA Negative Negative Ketone UA Negative Negative Specific [place] UA 1.018 1.005 - 1.030 Blood UA Negative Negative pH UA 5.0 5.0 - 8.0 Protein UA Negative Negative Urobilinogen UA Normal Normal mg/dL Nitrite UA Negative Negative Leukocyte Esterase UA Negative Negative Urine Microscopy Urine microscopy not indicated SODIUM URINE RANDOM Result Value Ref Range Sodium Urine 77 Not Established mmol/L OSMOLALITY URINE Result Value Ref Range Osmolality Urine 343 50 - 1,200 mOsm/kg CREATININE URINE RANDOM Result Value Ref Range Creatinine Urine 23.02 Not Established mg/dL UREA NITROGEN URINE RANDOM Result Value Ref Range Urea Nitrogen Random Urine 193 Not Established mg/dL GLUCOSE - POINT OF CARE Result Value Ref Range Glucose WB/POC 179 (H) 70 - 99 mg/dL Specimen Type Arterial/Capillary GLUCOSE - POINT OF CARE Result Value Ref Range Glucose WB/POC 83 70 - 99 mg/dL Specimen Type Arterial/Capillary GLUCOSE - POINT OF CARE Result Value Ref Range Glucose WB/POC 111 (H) 70 - 99 mg/dL Specimen Type Arterial/Capillary POTASSIUM BLOOD Result Value Ref Range Potassium 4.7 (H) 3.5 - 4.5 mmol/L GLUCOSE - POINT OF CARE Result Value Ref Range Glucose WB/POC 107 (H) 70 - 99 mg/dL Specimen Type Arterial/Capillary Microbiology: Microbiology Results (Displays last 21 days for this encounter ONLY) No results found for the last 504 hours. Medications Ordered Prior to Encounter[4] Past Medical History[5] Past Surgical History[6] Family History[7] Social History[8] Immunization History Administered Date(s) Administered Covid Pfizer primary monovalent 12+ yr 0.3mL Purple cap 12/23/2020, 01/18/2021 Imaging & Studies: CT Chest Pe W Abd Pelvis W Cont Result Date: 05/15/2025 Impression: 1.No evidence of acute pulmonary embolism. There is a retained metallic wire within oneof the right inferior lobe pulmonary arteries, likely iatrogenic. 2.Cardiomegaly and a moderate-sized pericardial effusion. Reflux of contrast into the hepatic veins suggesting right heart dysfunction. 3.Interstitial pulmonary edema, small volume ascites and diffuse body wall edema suggesting hypervolemia. Preliminary findings were discussed with the patient's care provider, Dr Sil Cordero by Dr. Tom Dinh via telephone at 05/15/2025 8:24 PM with readback comprehension and verification. > Dictated by Tom Dinh DO, (development vice president). > Dictated by Instrument Technologist I, Ann-Marie Campa MD have personally reviewed and interpreted this examination/study. > Interpreting Provider: Ann-Marie Campa MD on 05/15/2025 10:20 PM XR CHEST 2VW Result Date: 05/15/2025 IMPRESSION: A linear wire-like density projects over the right perihilar region. Cardiomegaly. Likely enlarged pulmonary arteries. Mild interstitial edema. Trace pleural effusions. No pneumothorax. > Interpreting Provider: Felipe Munoz MD on 05/15/2025 3:03 PM ASSESSMENT & PLAN Hyperkalemia (POA: Yes) Hyperbilirubinemia (POA: Yes) Hyponatremia (POA: Yes) Transaminitis (POA: Yes) Elevated alkaline phosphatase level (POA: Yes) Acute on chronic congestive heart failure, unspecified heart failure type (HCC) (POA: Yes) Obesity with serious comorbidity, unspecified class, unspecified obesity type (POA: Yes) Demand ischemia (HCC) (POA: Yes) History of endocarditis (POA: Yes) TBI (traumatic brain injury) (HCC) (POA: Yes) Hypothyroidism (POA: Yes) Atrial fibrillation (HCC) (POA: Yes) Prolonged Q-T interval on ECG (POA: Yes) Pericardial effusion (HCC) (POA: Yes) Acute kidney injury (POA: Yes) Type 2 diabetes mellitus, without long-term current use of insulin (HCC) (POA: Yes) Summary 64F with ACHF and hyponatremia with PMH of HFrEF (s/p AICD removal 2/2 infected device), tricuspid regurgitation (with former MSSA endocarditis), atrial fibrillation, HTN, T2DM, hypothyroidism, and traumatic brain injury (with intellectual disability). # ACHF # Pericardial effusion - BNP high (2209), troponin mild elevation (24) - Sister says patient is significantly more swollen than usual with about a 9 pound weight gain - Sister says patient is having to be repeatedly hospitalized due to same problems involving her heart. However, tricuspid valve replacement refused twice. First denial due to fear of her intellectual disability in the setting of post-operative ICU stay (could dislodge various tubes), second denialdue to insurance problems. Plan - Continue IV furosemide for diuresis (increase to tid) - Start metoprolol, empagliflozin - Start spironolactone (hyperkalemia resolved) - Consult cardiology regarding TR # Hyperkalemia # Hyponatremia - Potassium normalizing (6 > 4.7) after diuresis and binders - Sodium low (122 > 121) likely due to hypervolemia - Low serum osmolality (255); moderate urine osmolality (343) and high urine Na (73). Plan - Discontinue patiromer and Lokelma - Continue diuresis with increased frequency - If Na still does not improve administer hypertonic saline # Elevated transaminases # Elevated ALP # Hyperbilirubinemia - Likely due to CHF Plan - Treat CHF as above # History of endocarditis Plan - Continue cefadroxil # Hypothyroidism Plan - Continue levothyroxine # Atrial fibrillation Plan - Continue rivaroxaban, metoprolol # Long QT on ECG - Hyperkalemia has resolved (see above) Plan - Avoid QT prolonging drugs # DM2 - Glucose levels labile (378 > 107 > 44 > 135) Plan - SSI q6h with hypoglycemic protocol Code: Full Diet: Cardiac PPx: Rivaroxaban, cefadroxil Access: PIV Dispo: Home The above assessment and plan will be discussed with the attending. This note is not final until attested by attending physician. Marek Moore MS3 [facility] 05/16/2025 7:27 AM [1] 0.9% NaCl 3 mL Intracatheter q8h ascorbic acid 500 mg Oral QDAY busPIRone 10 mg Oral BID cefadroxil 1,000 mg Oral BID cyanocobalamin 500 mcg Oral QDAY [Held by Provider] escitalopram 10 mg Oral QDAY ferrous sulfate 325 mg Oral QDAY furosemide 80 mg Intravenous TID insulin aspart 0-6 Units Subcutaneous q4h iopamidol Intravenous Contrast - Once levothyroxine 75 mcg Oral QAM metoprolol succinate XL 24hr 100 mg Oral QDAY pantoprazole EC 40 mg Oral QDAY rivaroxaban 20 mg Oral QDAY sodium zirconium cyclosilicate 5 g Oral TID AC spironolactone 12.5 mg Oral QDAY vitamin D3 5,000 Units Oral QDAY [2] [3] SALINE LOCK, INSERT AND MAINTAIN AND 0.9% NaCl AND 0.9% NaCl acetaminophen albuterol HFA dextrose IV for hypoglycemia OR dextrose IV for hypoglycemia OR glucagon glucose (Diabetic Use) gel hydrOXYzine HCl methocarbamol polyethylene glycol 3350 [4] No current facility-administered medications on file prior to encounter. Current Outpatient Medications on File Prior to Encounter Medication Sig Dispense Refill acetaminophen (Tylenol) 500 MG tablet Take 1 (one) tablet by mouth every 6 hours as needed ACETAMINOPHEN-DM PO Take 30 mL by mouth every 4 hours as needed albuterol HFA (Proventil; Ventolin; Proair) 108 (90 Base) MCG/ACT inhaler Inhale 2 (two) puffs by mouth every 6 hours as needed for Shortness of Breath ascorbic acid (VITAMIN C) 500 MG tablet Take 1 (one) tablet by mouth once daily busPIRone (Buspar) 10 MG tablet Take 1 (one) tablet by mouth 2 times daily Carvedilol (COREG PO) (Patient not taking: Reported on 05/15/2025) cefadroxil (Duricef) 500 MG capsule Take 2 (two) capsules by mouth 2 times daily Cholecalciferol 125 MCG (5000 UT) Take 1 (one) tablet by mouth once daily Citalopram Hydrobromide (CELEXA PO) (Patient not taking: Reported on 05/15/2025) cyanocobalamin (Vitamin B-12) 500 MCG tablet Take 1 (one) tablet by mouth once daily docusate sodium (Colace) 100 MG capsule Take 1 (one) capsule by mouth 2 times daily escitalopram (Lexapro) 10 MG tablet Take 1 (one) tablet by mouth once daily Ferrous Sulfate (IRON PO) Take 1 tablet by mouth once daily ferrous sulfate EC 325 (65 Fe) MG tablet Take 1 (one) tablet by mouth once daily fluticasone propionate (Flonase) 50 MCG/ACT nasal spray [facility] 2 (two) sprays into each nostril 2 times daily furosemide (Lasix) 40 MG tablet Take 1 (one) tablet by mouth 2 times daily with morning and eveningmeal Gemtesa 75 MG tablet Take 1 (one) tablet by mouth once daily hydrocortisone (Hytone) 1 % cream Apply to affected area as needed (itching) hydrOXYzine HCl (Atarax) 25 MG tablet Take 1 (one) tablet by mouth every 4 hours as needed for Itching insulin aspart (NovoLOG) FlexPen Inject 15 (fifteen) Units subcutaneously 3 times daily,before breakfast/lunch/bedtime 15- 18 units before each meal insulin lispro (HumaLOG) 100 UNIT/ML vial Inject 18 (eighteen) Units subcutaneously 3 times daily before meals Family report 18 units Qam 18 units Qpm 10 units QHS Insulin NPH Isophane & Regular (HUMULIN 70/30 SC) (Patient not taking: Reported on 05/15/2025) levothyroxine (Synthroid) 75 MCG tablet Take 1 (one) tablet by mouth every morning lidocaine (Lidoderm) 4 % patch Apply 1 (one) patch to skin once daily as needed (pain) LISINOPRIL & DIET MANAGE PROD PO (Patient not taking: Reported on 05/15/2025) Magnesium Oxide -Mg Supplement 400 (240 Mg) MG Take 1 (one) tablet by mouth once daily METFORMIN & DIET MANAGE PROD PO (Patient not taking: Reported on 05/15/2025) metoprolol succinate XL 24hr (Toprol XL) 100 MG tablet Take 1 (one) tablet by mouth once daily nitrofurantoin monohyd macro crystals (MACROBID) 100 MG capsule Take 1 Cap by mouth 2 times daily with morning and evening meal (Patient not taking: Reported on 05/15/2025) 14 Cap 0 nortriptyline (Pamelor) 10 MG capsule Take 1 (one) capsule by mouth once daily omeprazole (PriLOSEC) 20 MG capsule Take 1 (one) capsule by mouth once daily OXYBUTYNIN CHLORIDE PO (Patient not taking: Reported on 05/15/2025) polyethylene glycol 3350 (Miralax) 17 g packet Take 17 (seventeen) g by mouth once daily as needed RANITIDINE & DIET MANAGE PROD PO (Patient not taking: Reported on 05/15/2025) spironolactone (Aldactone) 25 MG tablet Take 0.5 (one-half) tablet by mouth once daily TRAMADOL & DIETARY MANAGE PROD PO (Patient not taking: Reported on 05/15/2025) Xarelto 20 MG tablet Take 1 (one) tablet by mouth once daily [5] Past Medical History: Diagnosis Date Arrhythmia Cataracts, bilateral Depression Diabetes mellitus (HCC) Hypertension Overactive bladder [6] Past Surgical History: Procedure Laterality Date Appendectomy Cholecystectomy [7] No family history on file. [8] Social History Tobacco Use Smoking status: Never Smokeless tobacco: Never Vaping Use Vaping status: Never Used Substance Use Topics Alcohol use: Never Drug use: Never Cosigned by Adryan Shabazz MD at 05/16/2025 2:17 PM CDT Associated attestation - Adryan Shabazz MD - 05/16/2025 2:17 PM CDT I have reviewed this note for educational purposes only. Adryan Shabazz MD Business Unit Manager of Internal Medicine Hospitalist - [facility] * Adryan Shabazz MD - 05/16/2025 7:25 AM CDT Images from the original note were not included. [facility] Internal Medicine Progress Note Name: Loretta Calderon [place] Room/Bed: 819/ : 1960 64 year old PCP: Fredis Klein APRN-YUDI Admit Date/Time: 05/15/2025 6:17 PM LOS: 1 Subjective Interval update: AM Sodium remained at 122, then declined to 121. Mentation difficult to assess given intellectual disability. Family at bedside. BS declined to 44, given D50 with improvement of sugars. Patient notedto have not been eating. Family at bedside reported patient become crabby and begin to refuse care. Hospital course: Loretta Penn is a 64 year old female with a past medical history significant for HFrEF (EF 25%) with AICD removal in 07/2024 due to infected ICD lead, severe tricuspid regurg, h/o MSSA TV endocarditis on cefadroxil, a fib on xarelto, ID 2/2 TBI, HTN, T2DM, hypothyroidism who presents to the[facility]ital with [facility]. Patient hyponatremia 122, K of 6.1, INR 2.9, AST 59, Cr 1.48, Tbili 7.0, BNP 2200. CT CAP with moderate pericardial effusion, right heart dysfunction, body wall edema, pulmonary edema.Admitted for heart failure exacerbation and started on diuresis. Of note, Patient with intellectual impariment, so history obtained from chart. Discharged from [facility] on 03/05 after hospitalization for decompensated heart failure requiring considerable diuresis. Had ICD previously removed, documented t have a retained lead in the PA. On technician terminal and repeater cefadroxil for prior MSSA endocarditis. Per family who brought her in, patient recently gained 9 pounds. Upon my interview, patient denied dyspnea, confirmed swelling, but not able to answer in detail aspects of her medical history and medications. Objective Temp: [97 ??F (36.1 ??C)-97.5 ??F (36.4 ??C)] 97.3 ??F (36.3 ??C) Pulse: [83-103] 83 Resp: [17-19] 18 BP: (105-157)/(62-144) 110/98 Weight change: Intake/Output Summary (Last 24 hours) at 05/16/2025 1307 Last data filed at 05/16/2025 0521 Gross per 24 hour Intake 280 ml Output 480 ml Net -200 ml Physical Exam: Physical Exam Constitutional: General: She is not in acute distress. Appearance: She is obese. She is not ill-appearing. HENT: Head: Normocephalic. Mouth/Throat: Mouth: Mucous membranes are moist. Eyes: Pupils: Pupils are equal, round, and reactive to light. Cardiovascular: Rate and Rhythm: Normal rate and regular rhythm. Pulses: Normal pulses. Heart sounds: Murmur heard. Comments: systolic murmur heard Pulmonary: Effort: Pulmonary effort is normal. No respiratory distress. Breath sounds: Normal breath sounds. No wheezing. Abdominal: General: Bowel sounds are normal. There is no distension. Palpations: Abdomen is soft. Tenderness: There is no abdominal tenderness. Musculoskeletal: Right lower leg: Edema present. Left lower leg: Edema present. Comments: 2+ pitting edema Skin: General: Skin is warm. Neurological: General: No focal deficit present. Mental Status: She is alert. Comments: difficult to assess mentation given intellectual disability Scheduled Medications: Medications[1] PRN Medications: Medications[2] Continuous Infusions: Medications[3] Laboratory Data Recent Labs Component Name 05/15/25225605/15/25 1454 WBC 3.9* 3.9* HGB 13.7 14.6 HCT 39.6 43.4 PLTCOUNT 199 203 MCV 96.1 97.7 Recent Labs Component Name 05/15/25 1454 PT 29.5* INR 2.9 Recent Labs Component Name 05/16/25 1047 05/16/25 0827 05/16/25 0632 05/15/257 NA 123* 121* - 122* 122* POTASSIUM 5.3* 5.3* 4.3 4.3 4.7* 6.1* 6.1* CL 87* 89* - 90* 90* CO2 25 25 - 22 22 BUN 29* 27* - 30* 30* CREATININE 1.39* 1.44* - 1.48* 1.48* Recent Labs Component Name 05/16/25 1047 05/16/2582605/15/252256 CALCIUM 9.7 9.3 9.8 9.8 PHOS - 4.0 4.5 Recent Labs Component Name 05/16/25 0827 05/15/25 2257 05/15/25 2020 05/15/25 1606 PROT - 6.9 - 7.0 ALB 2.9* 3.1* 3.1* - 3.1* ALKPHOS - 351* - 365* AST - 71* - 59* ALT - 41 - 41 TBILI - 7.2* 7.0* 7.7* DBILI - - 4.9* - No results for input(s): CKTOTAL, CKMBCK2, TROPONINI in the last 00751 hours. No results for input(s): VANCORNDM, VANCTROUGH in the last 10737 hours. Microbiology Results (Displays last 21 days for this encounter ONLY) No results found for the last [address] Chest Pe W Abd Pelvis W Cont Result Date: 05/15/2025 Impression: 1.No evidence of acute pulmonary embolism. There is a retained metallic wire within oneof the right inferior lobe pulmonary arteries, likely iatrogenic. 2.Cardiomegaly and a moderate-sized pericardial effusion. Reflux of contrast into the hepatic veins suggesting right heart dysfunction. 3.Interstitial pulmonary edema, small volume ascites and diffuse body wall edema suggesting hypervolemia. Preliminary findings were discussed with the patient's care provider, Dr Sil Cordero by Dr. Tom Dinh via telephone at 05/15/2025 8:24 PM with readback comprehension and verification. > Dictated by Tom Dinh DO, (development vice president). > Dictated by Instrument Technologist I, Ann-Marie Campa MD have personally reviewed and interpreted this examination/study. > Interpreting Provider: Ann-Marie Campa MD on 05/15/2025 10:20 PM XR CHEST 2VW Result Date: 05/15/2025 IMPRESSION: A linear wire-like density projects over the right perihilar region. Cardiomegaly. Likely enlarged pulmonary arteries. Mild interstitial edema. Trace pleural effusions. No pneumothorax. > Interpreting Provider: Felipe Munoz MD on 05/15/2025 3:03 PM Relevant labs and imaging data reviewed on [facility]. Assessment and Plan Hyperkalemia (POA: Yes) Hyperbilirubinemia (POA: Yes) Hyponatremia (POA: Yes) Transaminitis (POA: Yes) Elevated alkaline phosphatase level (POA: Yes) Acute on chronic congestive heart failure, unspecified heart failure type (HCC) (POA: Yes) Obesity with serious comorbidity, unspecified class, unspecified obesity type (POA: Yes) Demand ischemia (HCC) (POA: Yes) History of endocarditis (POA: Yes) TBI (traumatic brain injury) (HCC) (POA: Yes) Hypothyroidism (POA: Yes) Atrial fibrillation (HCC) (POA: Yes) Prolonged Q-T interval on ECG (POA: Yes) Pericardial effusion (HCC) (POA: Yes) Acute kidney injury (POA: Yes) Type 2 diabetes mellitus, without long-term current use of insulin (HCC) (POA: Yes) Assessment & Plan Acute on chronic congestive heart failure, unspecified heart failure type (HCC) - Last TTE 02/07/2025 with EF 25%, BNP today 2200 - follow up on repeat TTE - daily weighs, strict I & O - furosemide 80mg IV tid (home dose with 80mg PO bid) - LAMBSKIN TRIMMER malou and metop succ - cardiac diet with fluid restriction - bid electrolyte monitoring - telemetry monitoring - cardiology consulted, [facility] but family reported it was denied due to insurance? Hyperkalemia - suspect is related to MARK, was shifted and given insulin + dextrose and patiromer in the ED - diuresing as above - [facility] - ctm - telemtry Pericardial effusion (HCC) - no hypotension to suggest tamponade - may be related to overall hypervolemic state - diuresis as above, on telemetry Hyperbilirubinemia - likely related to congestive hepatopathy from decomp heart failure. Fractionated in ED, predominately direct - daily CMP to monitor Hyponatremia - most likely hypervolemic hyponatremia - urine studies (urine NA and urine osm) - monitor for worsening of mentation - q6 hour lab monitiring Patient likely has hypervolemic hyponatremia. Earlier in AM, Na declined to 121. Mentation appearedto worse. Consideration of hypertonic saline. Rapid contacted and ICU. ICU accepted patient howeverit was noted that patient had not received AM dose of lasix. Cancelled ICU transfer, will aggressively diurese and more frequent labs to ensure Na continues to improve. Family, windows technical specialist, nurse, and r ncid aware of current treatment plans. 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 - on technician terminal and repeater suppressive abx therapy with cefadroxil TBI (traumatic brain injury) (HCC) - patient awake and communicative, but difficulty recalling details of her medical history - at risk for delirium, will attempt to reorient I develops delirium, avoid haldol given QT prolongation Hypothyroidism - LAMBSKIN TRIMMER levothyroxine Atrial fibrillation (HCC) - LAMBSKIN TRIMMER rivaroxaban, 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 Prolonged Q-T interval on ECG - likely related to electrolyte abnormalities and decompensated heart failre - avoiding QT prolonging meds Acute kidney injury - due to renal congestion from hypervolemia - diuresing, avoiding nephrotoxins - obtaining urine lytes Type 2 diabetes mellitus, without long-term current use of insulin (HCC) - hypoglycemic protocols - DC SSI given hypoglycemia Incidental findings requiring follow up: NA Diet: DIET CARDIAC DVT Prophylaxis: Rivaroxaban Code Status: Full Code [facility] Patient Experience Tracker Form (Please complete this form only once per day per team, to be completed by attending physician) Kaykay Candidate?: No Electronically Signed By: Adryan Shabazz MD 05/16/2025 1:07 PM The total time spent was 75 minutes performing chart preparation, review of data and visit with thepatient [1] 0.9% NaCl 3 mL Intracatheter q8h ascorbic acid 500 mg Oral QDAY busPIRone 10 mg Oral BID cefadroxil 1,000 mg Oral BID cyanocobalamin 500 mcg Oral QDAY [Held by Provider] escitalopram 10 mg Oral QDAY ferrous sulfate 325 mg Oral QDAY furosemide 80 mg Intravenous TID iopamidol Intravenous Contrast - Once levothyroxine 75 mcg Oral QAM metoprolol succinate XL 24hr 100 mg Oral QDAY pantoprazole EC 40 mg Oral QDAY rivaroxaban 20 mg Oral QDAY sodium zirconium cyclosilicate 5 g Oral TID AC spironolactone 12.5 mg Oral QDAY vitamin D3 5,000 Units Oral QDAY [2] SALINE LOCK, INSERT AND MAINTAIN AND 0.9% NaCl AND 0.9% NaCl acetaminophen albuterol HFA dextrose IV for hypoglycemia OR dextrose IV for hypoglycemia OR glucagon glucose (Diabetic Use) gel hydrOXYzine HCl methocarbamol polyethylene glycol 3350 [3] * Janki Casanova RN - 05/15/2025 11:20 PM CDT Problem: Respiratory - Adult Goal: Achieves optimal ventilation and oxygenation Description: INTERVENTIONS: Outcome: Progressing documented in this encounter H&P Notes * Bridgett Silverio MD - 05/20/2025 2:07 PM CDT [facility] PRE-PROCEDURE H&P AND SEDATION NOTE Planned Course of Treatment/Procedure Electrical Cardioversion and CHANCE History of Present Illness Loretta Penn is a 64 year old female with a history of HFrEF (EF 25% 02/2025), severe TR, MSSATV endocarditis with AICD removal in 07/2024, Afib on Xarelto, morbid obesity, intellectual disability due to TBI, HTN, IDDM, and hypothyroidism who presented to [facility] on 05/16/25 for generalized swelling and 9 lbs weight gain. She is presenting today for CHANCE/DCCV for afib. Tube feeds have been held since 10 AM this morning. This patient's prior inpatient/outpatient H&P from last 30 days was reviewed, the patient was examined, and no change has occurred in the patient's condition since the prior H&P was completed. Laboratory Data Recent Labs Component Name 05/20/25 0306 05/19/25 0400 05/18/25 0305 HGB 14.1 15.0 13.6 PLTCOUNT 136* 159 171 Recent Labs Component Name 05/20/25 0845 05/20/25 0306 05/19/25 2044 POTASSIUM 4.0 4.0 5.1* 3.1* CREATININE 1.02* 1.02* 1.05* 1.05* Recent Labs Component Name 05/15/25 1454 INR 2.9 Heart Failure Yes, History of Heart Failure NYHA Class lll Systolic Stress Test Performed None Medications, vital signs and labs results reviewed prior to procedure Yes Airway Mallampati III (soft palate, base of uvula visible) Sedation Fentanyl and Versed Indication: sedation is required to allow for performance of procedure. Monitoring: heart rate, cardiac nurse, continuous pulse oximetry, frequent blood pressure checks,level of consciousness, IV access, constant attendance until patient recovered, and emergency airway equipment available. Other indicators of a difficult intubation include Small mouth opening, Obesity Patient airway and condition has been evaluated immediately prior to sedation and/or analgesia: Yes ASA Class {Class 3 - Severe Systemic Disease, Definite Functional Limitations Impression LV Dysfunction Chest Pain Symptom Assessment Asymptomatic (patient presents without angina or an anginal equivalent) Cardiac Instability No Procedure Acuity Status Elective Cardiology High Risk Variables HFrEF Were these present on admission? Yes Consent: Risk, benefits and alternatives were discussed with patient and consent for procedure was obtained. Bridgett Silverio MD Cardiovascular Diseases Fellow [facility] Cosigned by Linda Lezama MD at 05/22/2025 8:55 AM CDT * Shavon Caldwell MD - 05/16/2025 4:42 PM CDT CARDIOLOGY SERVICE HISTORY AND PHYSICAL Admission Date: 05/15/2025 Patient: Loretta Penn (64 year old female) Code Status: Full Code History of Present Illness: Loretta Penn is a 64 year-old female with past medical history significant for HFrEF (EF 25% 02/2025), severe TR, 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 Pt was initially admitted to medicine service and cardiology consulted regarding severity of heart failure and other valvular issues. On admission, labs significant for BNP 2209, trop 24-->23, Na 122, K 6.1, Cr 1.48,alk phos 365, bili 7.7. Pt was shifted with insulin + dextrose, given patiromer and. She was started on IV furosemide TID for acute HFrEF. EKG showing Qtc prolongation. Pt noted to be hypoglycemic in40s on 8/7 AM, hypoglycemia protocol initiated. Patient transferred to primary cardiology service on 05/16 d/t concern that patient may develop cardiogenic shock. Interview limited due to patient agitation despite having POA sister Mounika on speaker in the room. Patient responds to her name but otherwise does not answer any questions. Per chart review, patient follows with [facility] primarily. Of note, patient recently admitted at [facility] forHF exacerbation in 02/2025; per chart review, patient was previously admitted previously at [facility] for MAYS and othorpnea + fluid retention for 2-3 weeks and then transferred to [facility]. [facility] radar systems engineer Dr. Flores increased her lasix from 40qd to BID, added spironolactone but had no improvement. BNPelevated to 2800s, at that time, started on IV bumex. EKG showing afib. Echo showing EF 40-45%. Pt received diuresis at [facility] and then GDMT was optimized to Entresto 24-26 (0.5 tab) BID, metoprolol XR 100 mg daily, spironolactone 25 mg daily, and Jardiance 10 mg daily. Valve team was consulted duringthis hospitalization, recommending clinic follow-up without transcatheter tricuspid valve interventions since patient is a poor candidate due to chronic tricuspid valve endocarditis and severe non-ischemic cardiomyopathy with LVEF 25%. Discussed current situation with patient's sister and POIrina Ruvalcaba. Confirmed full code status withfamily, though they would like to consider this further and will let us know if they change their mind. Discussed that patient may need ICU care given worsening AMS and need for more frequent lab checks. Per sister, patient can normally get agitated at home, usually over her food. Sister is asking whether we can fix her after he volume status is controlled. Appears to have poor understanding into current situation as family admits that patient will do whatever Loretta wants to do, includingeating high salt foods that will worsen her HF exacerbations. Discussed possible need for sedation if patient is not amenable to lab draws, given that per nursing 4 people had to hold patient to get BP taken. Family does not want her to get sedated, but understands the need for it. Pls confirm withfamily before proceeding with any IV/sedation measures. Current Medications: Scheduled: Medications[1] Continuous: Medications[2] PRN: Medications[3] Vital Signs: Temp: [97.3 ??F (36.3 ??C)-97.5 ??F (36.4 ??C)] 97.3 ??F (36.3 ??C) Pulse: [83-93] 83 Resp: [17-18] 18 BP: (105-141)/(62-98) 110/98 Physical Exam Constitutional: General: She is in acute distress. Appearance: She is obese. She is ill-appearing and diaphoretic. She is not toxic-appearing. HENT: Head: Normocephalic and atraumatic. Eyes: Extraocular Movements: Extraocular movements intact. Cardiovascular: Comments: Unable to assess, pt agitated Pulmonary: Comments: Unable to assess, pt agitated Abdominal: General: There is distension. Comments: Unable to assess, pt agitated Musculoskeletal: General: Swelling present. Comments: Visually noted to have swelling and chronic venous changes in BLE. Unable to perform physical exam without patient agitation Skin: Coloration: Skin is pale. Skin is not jaundiced. Findings: Bruising present. No erythema. Comments: Bruising extensively through bilateral upper extremities Neurological: Mental Status: She is alert. She is disoriented. Lab Results: Labs have been personally reviewed and are remarkable for the following: CBC: Recent Labs Component Name 05/15/25225605/15/25 1454 WBC 3.9* 3.9* HGB 13.7 14.6 HCT 39.6 43.4 MCV 96.1 97.7 Coagulation Panel: Recent Labs Component Name 05/15/25 1454 PT 29.5* INR 2.9 BMP: Recent Labs Component Name 05/16/25 1750 05/16/25 1047 05/16/25 0827 NA 121* 123* 121* POTASSIUM 4.6* 5.3* 5.3* 4.3 4.3 CL 86* 87* 89* CO2 BUN 30* 29* 27* CREATININE 1.36* 1.39* 1.44* CALCIUM 9.5 9.7 9.3 Recent Labs Component Name 05/16/25 1750 05/15/25 22505/15/25 1606 MAGNESIUM 2.0 2.2 2.2 2.2 Recent Labs Component Name 05/16/25 17505/16/25 0805/15/252256 PHOS 3.7 4.0 4.5 Hepatic Panel: Recent Labs Component Name 05/16/25 17505/16/2582605/15/25225605/15/25201905/15/25 1606 AST - - 71* - 59* ALT - - 41 - 41 ALKPHOS - - 351* - 365* TBILI - - 7.2* 7.0* 7.7* DBILI - - - 4.9* - IBILI - - - 2.1 - ALB 3.1* 2.9* 3.1* 3.1* - 3.1* ABG: No results for input(s): PH, PCO2, PO2 in the last 58058 hours. Invalid input(s): BICAR3 Amylase/Lipase: Invalid input(s): AMYL, LIPA Thyroid Studies: No results for input(s): TSH, T4 in the last 81374 hours. Cardiac Enzymes: No results for input(s): CKTOTAL, CKMB, TROPONINI in the last 93441 hours. Invalid input(s): CKMBINDEX Lipid Panel: No results for input(s): LDLCALC, HDL in the last 92515 hours. Microbiology: Microbiology Results (Displays last 21 days for this encounter ONLY) No results found for the last 504 hours. Imaging: Imaging has been personally reviewed and is summarized as below: CT Chest Pe W Abd Pelvis W Cont Result Date: 05/15/2025 Impression: 1.No evidence of acute pulmonary embolism. There is a retained metallic wire within oneof the right inferior lobe pulmonary arteries, likely iatrogenic. 2.Cardiomegaly and a moderate-sized pericardial effusion. Reflux of contrast into the hepatic veins suggesting right heart dysfunction. 3.Interstitial pulmonary edema, small volume ascites and diffuse body wall edema suggesting hypervolemia. Preliminary findings were discussed with the patient's care provider, Dr Sil Cordero by Dr. Tom Dinh via telephone at 05/15/2025 8:24 PM with readback comprehension and verification. > Dictated by Tom Dinh DO, (development vice president). > Dictated by Instrument Technologist I, Ann-Marie Campa MD have personally reviewed and interpreted this examination/study. > Interpreting Provider: Ann-Marie Campa MD on 05/15/2025 10:20 PM XR CHEST 2VW Result Date: 05/15/2025 IMPRESSION: A linear wire-like density projects over the right perihilar region. Cardiomegaly. Likely enlarged pulmonary arteries. Mild interstitial edema. Trace pleural effusions. No pneumothorax. > Interpreting Provider: Felipe Munoz MD on 05/15/2025 3:03 PM ASSESSMENT/PLAN: Ms. Loretta Penn is a 64 y/o F here with severe heart failure exacerbation and found to be hyponatremic down to 120s. Patient has AMS, though difficult to tell if this is very different from her baseline. HypoNa is likely hypervolemic hyponatremia d/t vol overload from HF exacerbation; neohroc/s, recommending bumex. Transferring to ICU currently. #Hyponatremia #Hyperkalemia - Na currently downtrending, now 121. - AMS may be worsening, though unable to tell whether this is close to baseline per family's report PLAN: - Continue to trend labs (RFP, Mg) q6hrs - IV diuresis with bumex? - Daily urine osms + serum osms - Nephro c/s, appreciate recs - Lokelma 5mg TID - Low threshold for ICU transfer if decompensating #Acute on chronic heart failure with reduced EF 25% #Severe TR #Peripheral edema in BLE - TTE done yesterday - Furosemide IV TID given yesterday PLAN: - Cardiac diet - 1L fluid restriction - metoprolol and aldactone held on admission - unclear as to why #Hx MSSA endocarditis on cefadroxil #AICD removal 07/2024 after ICD infecction - TTE does not show any vegetations, though noted to have L atrial mass on CCTA 07/2024 PLAN: - Cont cefadroxil 1000mg BID - Consider TTE? #Hyperbilirubinemia #Elevated alk phos - 2/2 congestive hepatopathy iso HF exacerbation - CTM CMP daily #T2DM #Obesity - per notes from 04/19, home regimen is 17U lantus in AM, 12U TID AC + slide 0-10U - Noted to have hypoglycemic episode on 87AM PLAN: - Holding glargine currently - Cont SSI 0-12U, accuchecks #Hypothyroidism - Cont home levothyroxine Code Status: Full Code Lines: Peripheral IV Left Antecubital (Active) Placement Date/Time: 05/15/25 1451 Size (Gauge): 20 G Orientation: Left Location: Antecubital Number of days: 1 External Urinary Catheter 05/15/252204 (Active) Placement Date/Time: 05/15/252204 Number of days: 0 Prophylaxis: Aspiration precautions w/ HOB elevation by 30 degrees VTE prophyalxis w/ SCDs, xarelto Diet: DIET CARDIAC Activity: Activity as tolerated Disposition: ICU Monitoring The above assessment and plan will be discussed with the attending. This note is not final until attested by attending physician. Shavon Caldwell MD Internal Medicine PGY2 05/16/2025 7:16 PM [1] 0.9% NaCl 3 mL Intracatheter q8h ascorbic acid 500 mg Oral QDAY busPIRone 10 mg Oral BID cefadroxil 1,000 mg Oral BID cyanocobalamin 500 mcg Oral QDAY [Held by Provider] escitalopram 10 mg Oral QDAY ferrous sulfate 325 mg Oral QDAY furosemide 80 mg Intravenous TID [Held by Provider] insulin aspart 0-12 Units Subcutaneous TID WC iopamidol Intravenous Contrast - Once levothyroxine 75 mcg Oral QAM [Held by Provider] metoprolol succinate XL 24hr 100 mg Oral QDAY pantoprazole EC 40 mg Oral QDAY rivaroxaban 20 mg Oral QDAY sodium zirconium cyclosilicate 5 g Oral TID AC [Held by Provider] spironolactone 12.5 mg Oral QDAY vitamin D3 5,000 Units Oral QDAY [2] [3] SALINE LOCK, INSERT AND MAINTAIN AND 0.9% NaCl AND 0.9% NaCl acetaminophen albuterol HFA dextrose IV for hypoglycemia OR dextrose IV for hypoglycemia OR glucagon glucose (Diabetic Use) gel hydrOXYzine HCl methocarbamol polyethylene glycol 3350 Cosigned by Linda Lezama MD at 05/17/2025 1:27 PM CDT Associated attestation - Linda Lezama MD - 05/17/2025 1:27 PM CDT ATTENDING ATTESTATION NOTE I have seen and examined the patient with the resident and I agree with the findings and plan of care as documented by the resident. Interval Hx: Very agitated Overnight in ICU - started on precedex, once time IV ativan. Became somnolent and intubated. Was normotensive - nipride started. This morning hypotensive. Levophed started. HPI: 64 yo with hx of TBI, NICM, severe TR (prior endocarditis), ICD infection (removed), admitted with severe acute decompensated HF, hyponatremia. Patient has been getting IV lasix during admission. She has severely low sodium. Elevated BrT. On exam, cool right extremity, warm on the left. Systolic murmur through the precordium. Cardiogenic shock Acute decompensated HF Congestive hepatopathy Hypervolumec hyponatremia Severe TR and MR Baseline traumatic brain injury Now intubated sedated Good UOP with IV bumex BP getting low - stop nipride this morning. - lactate was improving on nipride Invasive Hemodynamic monitoring - Central line and [place] - arterial line Assess need for inotropes vs pressors once obtain hemodynamics Consider tovalptan if remains hyponatremic Received also hypertonic saline Discuss goal of care with family Rest of plan as per the resident note. Date of Service: 05/17/25 Linda Lezama MD * Carline Darby, - 05/15/2025 10:31 PM CDT Images from the original note were not included. [facility] Internal Medicine History and Physical Name: Loretta Penn Room/Bed: [facility] : 1960 64 year old PCP: Fredis Klein APRN-YUDI Chief Complaint Chief Complaint: Swelling History of Present Illness Loretta Penn is a 64 year old female with a past medical history significant for HFrEF (EF 25%) with AICD removal in 07/2024 due to infected ICD lead, severe tricuspid regurg, h/o MSSA TV endocarditis on cefadroxil, a fib on xarelto, ID 2/2 TBI, HTN, T2DM, hypothyroidism who presents to thehospital with swelling. Upon arrival in the ED, VS notable for 115/82. Labs notable for hyponatremia 122, K of 6.1, INR 2.9, AST 59, Cr 1.48, Tbili 7.0, BNP 2200. CT CAP with moderate pericardial effusion, right heart dysfunction, body wall edema, pulmonary edema. Patient with intellectual impariment, so history obtained from chart. Discharged from [facility] on 03/05 after hospitalization for decompensated heart failure requiring considerable diuresis. Had ICD previously removed, documented t have a retained lead in the [place]. On prison cefadroxil for prior MSSA endocarditis. Per family who brought her in, patient recently gained 9 pounds. Upon my interview, patient denied dyspnea, confirmed swelling, but not able to answer in detail aspects of her medical history and medications. Review of Symptoms Review of Systems (positives in bold): Patient unable to answer due to prior TBI related encephalopathy Medical and Surgical History Allergies[1] Past Medical History[2] Past Surgical History[3] Current Outpatient Medications Medication Instructions acetaminophen (TYLENOL) 500 mg, EVERY 6 HOURS PRN ACETAMINOPHEN-DM PO 30 mL, EVERY 4 HOURS PRN albuterol HFA (Proventil; Ventolin; Proair) 108 (90 Base) MCG/ACT inhaler 2 puffs, EVERY 6 HOURS PRN ascorbic acid (VITAMIN C) 500 mg, DAILY busPIRone (BUSPAR) 10 mg, 2 TIMES DAILY Carvedilol (COREG PO) No dose, route, or frequency recorded. cefadroxil (DURICEF) 1,000 mg, 2 TIMES DAILY Cholecalciferol 5,000 Units, Oral, DAILY Citalopram Hydrobromide (CELEXA PO) No dose, route, or frequency recorded. cyanocobalamin (VITAMIN B-12) 500 mcg, DAILY docusate sodium (COLACE) 100 mg, Oral, 2 TIMES DAILY escitalopram (LEXAPRO) 10 mg, DAILY Ferrous Sulfate (IRON PO) 1 tablet, Oral, DAILY ferrous sulfate EC 325 mg, Oral, DAILY fluticasone propionate (Flonase) 50 MCG/ACT nasal spray 2 sprays, Each Nostril, 2 TIMES DAILY furosemide (LASIX) 40 mg, 2 TIMES DAILY WITH MEALS Gemtesa 75 MG tablet 1 tablet, DAILY hydrocortisone (Hytone) 1 % cream PRN hydrOXYzine HCl (ATARAX) 25 mg, Oral, EVERY 4 HOURS PRN insulin aspart (NOVOLOG) 15 Units, 3 TIMES DAILY (before breakfast,lunch,bedtime) insulin lispro (HUMALOG) 18 Units, 3 TIMES DAILY BEFORE MEALS Insulin NPH Isophane & Regular (HUMULIN 70/30 SC) No dose, route, or frequency recorded. levothyroxine (SYNTHROID) 75 mcg, EVERY MORNING lidocaine (Lidoderm) 4 % patch 1 patch, Transdermal, DAILY PRN LISINOPRIL & DIET MANAGE PROD PO No dose, route, or frequency recorded. Magnesium Oxide -Mg Supplement 400 mg, DAILY METFORMIN & DIET MANAGE PROD PO No dose, route, or frequency recorded. metoprolol succinate XL 24hr (TOPROL XL) 100 mg, DAILY nitrofurantoin monohyd macro crystals (MACROBID) 100 mg, Oral, 2 TIMES DAILY WITH MEALS nortriptyline (PAMELOR) 10 mg, DAILY omeprazole (PRILOSEC) 20 mg, Oral, DAILY OXYBUTYNIN CHLORIDE PO No dose, route, or frequency recorded. polyethylene glycol 3350 (MIRALAX) 17 g, DAILY PRN RANITIDINE & DIET MANAGE PROD PO No dose, route, or frequency recorded. spironolactone (ALDACTONE) 12.5 mg, DAILY TRAMADOL & DIETARY MANAGE PROD PO No dose, route, or frequency recorded. Xarelto 20 mg, Oral, DAILY Social and Family History Social History Socioeconomic History Marital status: Spouse name: Not on file Number of children: Not on file Years of education: Not on file Highest education level: Not on file Occupational History Not on file Tobacco Use Smoking status: Never Smokeless tobacco: Never Vaping Use Vaping status: Never Used Substance and Sexual Activity Alcohol use: Never Drug use: Never Sexual activity: Not Currently Other Topics Concern Not on file Social History Narrative Not on file Social Drivers of Health Financial Resource Strain: Low Risk (05/15/2025) Overall Financial Resource Strain (CARDIA) Difficulty of Paying Living Expenses: Not hard at all Recent Concern: Financial Resource Strain - Medium Risk (02/25/2025) Received from [facility] Overall Financial Resource Strain (CARDIA) Difficulty of Paying Living Expenses: Somewhat hard Food Insecurity: No Food Insecurity (05/15/2025) Hunger Vital Sign Worried About Running Out of Food in the Last Year: Never true Ran Out of Food in the Last Year: Never true Transportation Needs: No Transportation Needs (05/15/2025) PRAPARE - Transportation Lack of Transportation (Medical): No Lack of Transportation (Non-Medical): No Stress: No Stress Concern Present (05/15/2025) [employer] - Occupational Stress Questionnaire Feeling of Stress : Only a little Housing Stability: Low Risk (05/15/2025) Housing Stability Vital Sign Unable to Pay for Housing in the Last Year: No Number of Times Moved in the Last Year: 0 Homeless in the Last Year: No Family History[4] Objective Recent Vitals: Temp: [97 ??F (36.1 ??C)-97.5 ??F (36.4 ??C)] 97.5 ??F (36.4 ??C) Pulse: [93-103] 93 Resp: [17-19] 17 BP: (115-157)/(63-144) 141/63 Weight change: Intake/Output Summary (Last 24 hours) at 05/15/2025 2322 Last data filed at 05/15/2025 2301 Gross per 24 hour Intake 160 ml Output -- Net 160 ml Physical Examination: BP 141/63 (BP Location: Right arm, Patient Position: Lying) Pulse 93 Temp 97.5 ??F (36.4 ??C) (Axillary) Resp 17 Ht 1.676 m (5' 6) Wt 120.3 kg (265 lb 4.8 oz) SpO2 99% General: Elderly woman AO x person, place. No acute distress. HEENT: PERRL, MMM Respiratory: Diminished breath sounds bilaterally Heart: Regular rate and rhythm Abdomen: Soft, non-tender, non-distended but edematous tissue Extremities: No cyanosis, bilaterl lower extremity edema. ROM normal. Neuro: No focal deficits however patient could not participate well in exam Skin: No new ulcers or rash noted. Laboratory Data Recent Labs Component Name 05/15/25 1454 WBC 3.9* HGB 14.6 HCT 43.4 PLTCOUNT 203 MCV 97.7 Recent Labs Component Name 05/15/25 1454 PT 29.5* INR 2.9 Recent Labs Component Name 05/15/25 1606 NA 122* POTASSIUM 6.1* CL 91* CO2 22 BUN 31* CREATININE 1.48* Recent Labs Component Name 05/15/25 1606 CALCIUM 9.3 Recent Labs Component Name 05/15/25201905/15/25 1606 PROT - 7.0 ALB - 3.1* ALKPHOS - 365* AST - 59* ALT - 41 TBILI 7.0* 7.7* DBILI 4.9* - No results for input(s): CKTOTAL, CKMBCK2, TROPONINI in the last 93934 hours. No results for input(s): VANCORNDM, VANCTROUGH in the last 90098 hours. Microbiology Results (Displays last 21 days for this encounter ONLY) No results found for the last [address] Chest Pe W Abd Pelvis W Cont Result Date: 05/15/2025 Impression: 1.No evidence of acute pulmonary embolism. There is a retained metallic wire within oneof the right inferior lobe pulmonary arteries, likely iatrogenic. 2.Cardiomegaly and a moderate-sized pericardial effusion. Reflux of contrast into the hepatic veins suggesting right heart dysfunction. 3.Interstitial pulmonary edema, small volume ascites and diffuse body wall edema suggesting hypervolemia. Preliminary findings were discussed with the patient's care provider, Dr Sil Cordero by Dr. Tom Dinh via telephone at 05/15/2025 8:24 PM with readback comprehension and verification. > Dictated by Tom Dinh DO, (development vice president). > Dictated by Instrument Technologist I, Ann-Marie Campa MD have personally reviewed and interpreted this examination/study. > Interpreting Provider: Ann-Marie Campa MD on 05/15/2025 10:20 PM XR CHEST 2VW Result Date: 05/15/2025 IMPRESSION: A linear wire-like density projects over the right perihilar region. Cardiomegaly. Likely enlarged pulmonary arteries. Mild interstitial edema. Trace pleural effusions. No pneumothorax. > Interpreting Provider: Felipe Munoz MD on 05/15/2025 3:03 PM EKG Interpretation: EKG availabel for review with an irregular rhythm, low voltage complexes Relevant labs and imaging data reviewed on Epic Assessment and Plan Hyperkalemia (POA: Yes) Hyperbilirubinemia (POA: Yes) Hyponatremia (POA: Yes) Transaminitis (POA: Yes) Elevated alkaline phosphatase level (POA: Yes) Acute on chronic congestive heart failure, unspecified heart failure type (HCC) (POA: Yes) Obesity with serious comorbidity, unspecified class, unspecified obesity type (POA: Yes) Demand ischemia (HCC) (POA: Yes) History of endocarditis (POA: Yes) TBI (traumatic brain injury) (HCC) (POA: Yes) Hypothyroidism (POA: Yes) Atrial fibrillation (HCC) (POA: Yes) Prolonged Q-T interval on ECG (POA: Yes) Pericardial effusion (HCC) (POA: Yes) Acute kidney injury (POA: Yes) Type 2 diabetes mellitus, without long-term current use of insulin (HCC) (POA: Yes) Assessment & Plan Acute on chronic congestive heart failure, unspecified heart failure type (HCC) - Last TTE 02/07/2025 with EF 25%, BNP today 2200 - currently deocompensated, will obtain repeat TTE - daily weighs, strict I & O - furosemide 80mg IV tid (home dose with 80mg PO bid) - LAMBSK[employer] TRIMMER malou and metop succ - cardiac diet with fluid restriction - bid electrolyte monitoring - telemetry monitoring Hyperkalemia - suspect is related to MARK, was shifted and given insulin + dextrose and patiromer in the ED - diuresing as above - recheck 4 hours post shifting, 2300 on 05/15 - lokelma tid with meals Pericardial effusion (HCC) - no hypotension to suggest tamponade - may be related to overall hypervolemic state - diuresis as above, on telemetry Hyperbilirubinemia - likely related to congestive hepatopathy from decomp heart failure. 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 - on prison suppressive abx therapy with cefadroxil TBI (traumatic brain injury) (HCC) - patient awake and communicative, but difficulty recalling details of her medical history - at risk for delirium, will attempt to reorient I develops delirium, avoid haldol given QT prolongation Hypothyroidism - [employer] TR[employer]MER levothyroxine Atrial fibrillation (HCC) - [employer] TR[employer]MER rivaroxaban, 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 Prolonged Q-T interval on ECG - likely related to electrolyte abnormalities and decompensated heart failre - avoiding QT prolonging meds Acute kidney injury - due to renal congestion from hypervolemia - diuresing, avoiding nephrotoxins - obtaining urine lytes Type 2 diabetes mellitus, without long-term current use of insulin (HCC) - q6h ssi, hypoglycemic protocols Incidental findings requiring follow up: None Diet: DIET CARDIAC DVT Prophylaxis: Rivaroxaban Goals of Care: Advance Care Planning Goals of Care Current active code status Full Code POA/Surrogate Decision Maker: Mounika Atkinson Candidate?: No Electronically Signed By: Carline Darby DO Date of Service: 05/15/2025 The total time spent was 45 minutes performing chart preparation, review of data and visit with thepatient [1] Allergies Allergen Reactions Sulfa Drugs Urticaria [2] Past Medical History: Diagnosis Date Arrhythmia Cataracts, bilateral Depression Diabetes mellitus (HCC) Hypertension Overactive bladder [3] Past Surgical History: Procedure Laterality Date Appendectomy Cholecystectomy [4] No family history on file. documented in this encounter Procedure Notes * Santi Hawthorne MD - 05/20/2025 10:33 AM CDT [facility] EEG SUMMARY REPORT Patient Name: Loretta Penn EEG#: [id number] Recording Start Time: 05:12 AM, 05/17/2025 Recording Stop Time: 16:42 PM, 05/19/2025 Clinical History: Loretta Penn is a 64 year old female with altered menta status. This continuous video EEG monitoring is ordered to evaluate for seizures in the setting of altered mental status. Current medications [Medications] [Medications] Current Facility-Administered Medications Medication 0.9% NaCl injection 3 mL And 0.9% NaCl injection 1-10 mL acetaminophen (Tylenol) tablet 500 mg albuterol HFA (Proventil; Ventolin; Proair) 108 (90 Base) MCG/ACT inhaler 2 puff artificial tears ophthalmic ointment bumetanide (Bumex) injection 4 mg busPIRone (Buspar) tablet 10 mg cefepime (Maxipime) 2,000 mg in NaCl IV 0.9 % 50 mL IVPB chlorhexidine (Peridex) 0.12 % oral solution 15 mL cyanocobalamin (Vitamin B-12) tablet 500 mcg dextrose IV 12.5 g Or dextrose IV 25 g Or glucagon (Glucagen) injection 1 mg [Held by Provider] escitalopram (Lexapro) tablet 10 mg fentaNYL (Sublimaze) bolus from bag 50 mcg fentaNYL 2500 mcg/50mL infusion glucose (Diabetic Use) oral gel hydrOXYzine HCl (Atarax) tablet 25 mg insulin aspart (NovoLOG) pen 0-12 Units [Held by Provider] insulin glargine (Lantus) pen 5 Units levothyroxine (Synthroid) tablet 75 mcg magnesium sulfate 2 g in 50 mL bolus methocarbamol (Robaxin) tablet 750 mg [Held by Provider] metoprolol succinate XL 24hr (Toprol XL) tablet 100 mg norepinephrine (Levophed) 8 mg/250 ml NS infusion premix pantoprazole (Protonix) injection 40 mg polyethylene glycol 3350 (Miralax) packet 17 g potassium chloride 40 mEq in 270 mL bolus propofol (Diprivan) 1000 mg in 100 mL infusion rivaroxaban (Xarelto) tablet 20 mg [Held by Provider] sodium zirconium cyclosilicate (Lokelma) packet 5 g [Held by Provider] spironolactone (Aldactone) tablet 12.5 mg vancomycin (Vancocin) 1,000 mg in NaCl IV 0.9 % 250 mL IVPB vancomycin (Vancocin) IV dose per pharmacy vitamin D3 (Cholecalciferol) 25 MCG (1000 UNITS) tablet 5,000 Units Description This is a continuous video EEG monitoring is 21-channels; consisting of 20 channels of EEG obtainedfrom electrodes placed on the scalp according to the international 10-20 system, T1 and T2 electrodes, and one channel of EKG monitoring. Background: Epoch Start Time: 05:12 AM, 05/17/2025 Epoch Stop Time: 06:32 AM, 05/18/2025 The background was symmetric. No well-developed posterior dominant rhythm was identified. Anterior-posterior gradient was absent. The background was continuous and consisted of generalized poorly-organized admixed polymorphic theta and delta frequency activity. Variability was present. Reactivity was present. Vertex waves and other sleep structures were occasionally present. Activation procedures were not performed. Epoch Start Time: 06:32 AM, 05/18/2025 Epoch Stop Time: 05:07 AM, 05/19/2025 The background was symmetric. No well-developed posterior dominant rhythm was identified. Anterior-posterior gradient was absent. The background was continuous and consisted of generalized poorly-organized admixed polymorphic theta and delta frequency activity. Variability was present. Reactivity was present. Bilateral fronto-central sharp transients were identified exclusively during sleep-like states, likely representing poorly formed vertex waves. Poorly-formed spindles were also occasionally present. Activation procedures were not performed. Epoch Start Time: 05:07 AM, 05/19/2025 Epoch Stop Time: 16:42 PM, 05/19/2025 The background was symmetric. No well-developed posterior dominant rhythm was identified. Anterior-posterior gradient was absent. The background was continuous and consisted of generalized poorly-organized admixed polymorphic theta and delta frequency activity. Variability was present. Reactivity was present. Bilateral fronto-central sharp transients were identified exclusively during sleep-like states, likely representing poorly formed vertex waves. Poorly-formed spindles were also occasionally present. Activation procedures were not performed. EKG was observed throughout the recording. IMPRESSION This is an abnormal cEEG due to generalized slowing. CLINICAL CORRELATION: 05/17/2025-05/18/2025 This finding is consistent with severe encephalopathy, but is not specific to etiology. 05/18/2025-05/19/2025 This finding is consistent with severe encephalopathy, but is not specific to etiology. 05/19/2025 This finding is consistent with severe encephalopathy, but is not specific to etiology. Santi Hawthorne MD * Santi Hawthorne MD - 05/20/2025 10:20 AM CDT [facility] EEG REPORT Patient Name: Loretta Penn EEG#: [id number] Recording Start Time: 05:12 AM, 05/17/2025 Epoch Start Time: 05:07 AM, 05/19/2025 Epoch Stop Time: 16:42 PM, 05/19/2025 Clinical History: Loretta Penn is a 64 year old female with altered menta status. This continuous video EEG monitoring is ordered to evaluate for seizures in the setting of altered mental status. Current medications [Medications] [Medications] Current Facility-Administered Medications Medication 0.9% NaCl injection 3 mL And 0.9% NaCl injection 1-10 mL acetaminophen (Tylenol) tablet 500 mg albuterol HFA (Proventil; Ventolin; Proair) 108 (90 Base) MCG/ACT inhaler 2 puff artificial tears ophthalmic ointment bumetanide (Bumex) injection 4 mg busPIRone (Buspar) tablet 10 mg cefepime (Maxipime) 2,000 mg in NaCl IV 0.9 % 50 mL IVPB chlorhexidine (Peridex) 0.12 % oral solution 15 mL cyanocobalamin (Vitamin B-12) tablet 500 mcg dextrose IV 12.5 g Or dextrose IV 25 g Or glucagon (Glucagen) injection 1 mg [Held by Provider] escitalopram (Lexapro) tablet 10 mg fentaNYL (Sublimaze) bolus from bag 50 mcg fentaNYL 2500 mcg/50mL infusion glucose (Diabetic Use) oral gel hydrOXYzine HCl (Atarax) tablet 25 mg insulin aspart (NovoLOG) pen 0-12 Units [Held by Provider] insulin glargine (Lantus) pen 5 Units levothyroxine (Synthroid) tablet 75 mcg magnesium sulfate 2 g in 50 mL bolus methocarbamol (Robaxin) tablet 750 mg [Held by Provider] metoprolol succinate XL 24hr (Toprol XL) tablet 100 mg norepinephrine (Levophed) 8 mg/250 ml NS infusion premix pantoprazole (Protonix) injection 40 mg polyethylene glycol 3350 (Miralax) packet 17 g potassium chloride 40 mEq in 270 mL bolus propofol (Diprivan) 1000 mg in 100 mL infusion rivaroxaban (Xarelto) tablet 20 mg [Held by Provider] sodium zirconium cyclosilicate (Lokelma) packet 5 g [Held by Provider] spironolactone (Aldactone) tablet 12.5 mg vancomycin (Vancocin) 1,000 mg in NaCl IV 0.9 % 250 mL IVPB vancomycin (Vancocin) IV dose per pharmacy vitamin D3 (Cholecalciferol) 25 MCG (1000 UNITS) tablet 5,000 Units Description This is a continuous video EEG monitoring is 21-channels; consisting of 20 channels of EEG obtainedfrom electrodes placed on the scalp according to the international 10-20 system, T1 and T2 electrodes, and one channel of EKG monitoring. Background: Epoch Start Time: 05:12 AM, 05/17/2025 Epoch Stop Time: 06:32 AM, 05/18/2025 The background was symmetric. No well-developed posterior dominant rhythm was identified. Anterior-posterior gradient was absent. The background was continuous and consisted of generalized poorly-organized admixed polymorphic theta and delta frequency activity. Variability was present. Reactivity was present. Vertex waves and other sleep structures were occasionally present. Activation procedures were not performed. Epoch Start Time: 06:32 AM, 05/18/2025 Epoch Stop Time: 05:07 AM, 05/19/2025 The background was symmetric. No well-developed posterior dominant rhythm was identified. Anterior-posterior gradient was absent. The background was continuous and consisted of generalized poorly-organized admixed polymorphic theta and delta frequency activity. Variability was present. Reactivity was present. Bilateral fronto-central sharp transients were identified exclusively during sleep-like states, likely representing poorly formed vertex waves. Poorly-formed spindles were also occasionally present. Activation procedures were not performed. Epoch Start Time: 05:07 AM, 05/19/2025 Epoch Stop Time: 16:42 PM, 05/19/2025 The background was symmetric. No well-developed posterior dominant rhythm was identified. Anterior-posterior gradient was absent. The background was continuous and consisted of generalized poorly-organized admixed polymorphic theta and delta frequency activity. Variability was present. Reactivity was present. Bilateral fronto-central sharp transients were identified exclusively during sleep-like states, likely representing poorly formed vertex waves. Poorly-formed spindles were also occasionally present. Activation procedures were not performed. EKG was observed throughout the recording. IMPRESSION This is an abnormal cEEG due to generalized slowing. CLINICAL CORRELATION: 05/17/2025-05/18/2025 This finding is consistent with severe encephalopathy, but is not specific to etiology. 05/18/2025-05/19/2025 This finding is consistent with severe encephalopathy, but is not specific to etiology. 05/19/2025 This finding is consistent with severe encephalopathy, but is not specific to etiology. Santi Hawthorne MD * Sharon Emerson - 05/19/2025 5:09 PM CDT Patient disconnected from cEEG per order No skin irritation/breakdown seen at this time * Santi Hawthorne MD - 05/19/2025 8:16 AM CDT [facility] EEG REPORT Patient Name: Loretta Penn EEG#: [id number] Recording Start Time: 05:12 AM, 05/17/2025 Epoch Start Time: 06:32 AM, 05/18/2025 Epoch Stop Time: 05:07 AM, 05/19/2025 Clinical History: Loretta Penn is a 64 year old female with altered menta status. This continuous video EEG monitoring is ordered to evaluate for seizures in the setting of altered mental status. Current medications [Medications] [Medications] Current Facility-Administered Medications Medication 0.9% NaCl injection 3 mL And 0.9% NaCl injection 1-10 mL acetaminophen (Tylenol) tablet 500 mg albuterol HFA (Proventil; Ventolin; Proair) 108 (90 Base) MCG/ACT inhaler 2 puff artificial tears ophthalmic ointment bumetanide (Bumex) injection 4 mg busPIRone (Buspar) tablet 10 mg cefepime (Maxipime) 2,000 mg in NaCl IV 0.9 % 50 mL IVPB chlorhexidine (Peridex) 0.12 % oral solution 15 mL cyanocobalamin (Vitamin B-12) tablet 500 mcg dextrose IV 12.5 g Or dextrose IV 25 g Or glucagon (Glucagen) injection 1 mg [Held by Provider] escitalopram (Lexapro) tablet 10 mg fentaNYL (Sublimaze) bolus from bag 50 mcg fentaNYL 2500 mcg/50mL infusion glucose (Diabetic Use) oral gel hydrOXYzine HCl (Atarax) tablet 25 mg insulin aspart (NovoLOG) pen 0-12 Units [Held by Provider] insulin glargine (Lantus) pen 5 Units levothyroxine (Synthroid) tablet 75 mcg magnesium sulfate 2 g in 50 mL bolus methocarbamol (Robaxin) tablet 750 mg [Held by Provider] metoprolol succinate XL 24hr (Toprol XL) tablet 100 mg norepinephrine (Levophed) 8 mg/250 ml NS infusion premix pantoprazole (Protonix) injection 40 mg polyethylene glycol 3350 (Miralax) packet 17 g potassium chloride 40 mEq in 270 mL bolus propofol (Diprivan) 1000 mg in 100 mL infusion rivaroxaban (Xarelto) tablet 20 mg [Held by Provider] sodium zirconium cyclosilicate (Lokelma) packet 5 g [Held by Provider] spironolactone (Aldactone) tablet 12.5 mg vancomycin (Vancocin) 1,000 mg in NaCl IV 0.9 % 250 mL IVPB vancomycin (Vancocin) IV dose per pharmacy vitamin D3 (Cholecalciferol) 25 MCG (1000 UNITS) tablet 5,000 Units Description This is a continuous video EEG monitoring is 21-channels; consisting of 20 channels of EEG obtainedfrom electrodes placed on the scalp according to the international 10-20 system, T1 and T2 electrodes, and one channel of EKG monitoring. Background: Epoch Start Time: 05:12 AM, 05/17/2025 Epoch Stop Time: 06:32 AM, 05/18/2025 The background was symmetric. No well-developed posterior dominant rhythm was identified. Anterior-posterior gradient was absent. The background was continuous and consisted of generalized poorly-organized admixed polymorphic theta and delta frequency activity. Variability was present. Reactivity was present. Vertex waves and other sleep structures were occasionally present. Activation procedures were not performed. Epoch Start Time: 06:32 AM, 05/18/2025 Epoch Stop Time: 05:07 AM, 05/19/2025 The background was symmetric. No well-developed posterior dominant rhythm was identified. Anterior-posterior gradient was absent. The background was continuous and consisted of generalized poorly-organized admixed polymorphic theta and delta frequency activity. Variability was present. Reactivity was present. Bilateral fronto-central sharp transients were identified exclusively during sleep-like states, likely representing poorly formed vertex waves. Poorly-formed spindles were also occasionally present. Activation procedures were not performed. EKG was observed throughout the recording. IMPRESSION This is an abnormal cEEG due to generalized slowing. CLINICAL CORRELATION: 05/17/2025-05/18/2025 This finding is consistent with severe encephalopathy, but is not specific to etiology. 05/18/2025-05/19/2025 This finding is consistent with severe encephalopathy, but is not specific to etiology. Santi Hawthorne MD * Alexandra Brown - 05/19/2025 1:30 AM CDT CHECK WAS PERFORMED * Santi Hawthorne MD - 05/18/2025 7:58 AM CDT [facility] EEG REPORT Patient Name: Loretta Penn EEG#: [id number] Recording Start Time: 05:12 AM, 05/17/2025 Epoch Start Time: 05:12 AM, 05/17/2025 Epoch Stop Time: 06:32 AM, 05/18/2025 Clinical History: Loretta Penn is a 64 year old female with altered menta status. This continuous video EEG monitoring is ordered to evaluate for seizures in the setting of altered mental status. Current medications Medications[1] Description This is a continuous video EEG monitoring is 21-channels; consisting of 20 channels of EEG obtainedfrom electrodes placed on the scalp according to the international 10-20 system, T1 and T2 electrodes, and one channel of EKG monitoring. Background: Epoch Start Time: 05:12 AM, 05/17/2025 Epoch Stop Time: 06:32 AM, 05/18/2025 The background was symmetric. No well-developed posterior dominant rhythm was identified. Anterior-posterior gradient was absent. The background was continuous and consisted of generalized poorly-organized admixed polymorphic theta and delta frequency activity. Variability was present. Reactivity was present. Vertex waves and other sleep structures were occasionally present. Activation procedures were not performed. EKG was observed throughout the recording. IMPRESSION This is an abnormal cEEG due to generalized slowing. CLINICAL CORRELATION: This finding is consistent with encephalopathy, but is not specific to etiology. Santi Hawthorne MD [1] Current Facility-Administered Medications Medication 0.9% NaCl injection 3 mL And 0.9% NaCl injection 1-10 mL acetaminophen (Tylenol) tablet 500 mg albuterol HFA (Proventil; Ventolin; Proair) 108 (90 Base) MCG/ACT inhaler 2 puff artificial tears ophthalmic ointment bumetanide (Bumex) injection 4 mg busPIRone (Buspar) tablet 10 mg cefepime (Maxipime) 2,000 mg in NaCl IV 0.9 % 50 mL IVPB chlorhexidine (Peridex) 0.12 % oral solution 15 mL cyanocobalamin (Vitamin B-12) tablet 500 mcg dextrose IV 12.5 g Or dextrose IV 25 g Or glucagon (Glucagen) injection 1 mg [Held by Provider] escitalopram (Lexapro) tablet 10 mg fentaNYL (Sublimaze) bolus from bag 50 mcg fentaNYL 2500 mcg/50mL infusion glucose (Diabetic Use) oral gel hydrOXYzine HCl (Atarax) tablet 25 mg insulin aspart (NovoLOG) pen 0-12 Units [Held by Provider] insulin glargine (Lantus) pen 5 Units levothyroxine (Synthroid) tablet 75 mcg magnesium sulfate 2 g in 50 mL bolus methocarbamol (Robaxin) tablet 750 mg [Held by Provider] metoprolol succinate XL 24hr (Toprol XL) tablet 100 mg norepinephrine (Levophed) 8 mg/250 ml NS infusion premix pantoprazole (Protonix) injection 40 mg polyethylene glycol 3350 (Miralax) packet 17 g potassium chloride 40 mEq in 270 mL bolus propofol (Diprivan) 1000 mg in 100 mL infusion rivaroxaban (Xarelto) tablet 20 mg [Held by Provider] sodium zirconium cyclosilicate (Lokelma) packet 5 g [Held by Provider] spironolactone (Aldactone) tablet 12.5 mg vancomycin (Vancocin) 1,000 mg in NaCl IV 0.9 % 250 mL IVPB vancomycin (Vancocin) IV dose per pharmacy vitamin D3 (Cholecalciferol) 25 MCG (1000 UNITS) tablet 5,000 Units * Alexandra Brown - 05/18/2025 12:21 AM CDT CHECKS HAS BEEN PERFORMED * Wendi Bernstein MD - 05/17/2025 5:42 PM CDT Monroe-Remington Catheter Placement Date: 05/17/2025 Time: 1500 Indication: Hemodynamic monitoring/measurement of pulmonary pressures Fellow: Wendi Bernstein Attending: Dr. Lezama A time-out was completed verifying correct patient, procedure, site, positioning, and special equipment if applicable. The patient was placed in a dependent position appropriate for central line placement, and right neck was prepped and draped for sterile procedure. Access was obtained using ultrasound guidance and 8 Fr cordis catheter was introduced into the patient's right internal jugular veinvia seldinger technique. A triple lumen Monroe-Remington catheter was brought onto the field and each lineflushed with sterile saline. The catheter was introduced into the Cordis catheter and advanced withultrasound guidance to the right atrium. The balloon was then inflated and the catheter was advanced through the right ventricle and into the pulmonary artery until a wedge position pressure tracing was obtained. No complications occurred. Cosigned by Linda Lezama MD at 05/18/2025 8:28 AM CDT Associated attestation - Linda Lezama MD - 05/18/2025 8:28 AM CDT I was present for the procedure. Agree with documentation by the fellow. * Ha Hernandez MD - 05/17/2025 3:37 PM CDT Arterial Line Placement Procedure Note Procedure: Insertion of arterial line Indications: shock Anesthesia IV patient already on IV sedation protocol which was continued during the procedure Local: None Site: Right radial - A modified David test was performed and demonstrated adequate collateral bloodflow. Consent Risks of hemorrhage, infection and adverse drug reaction were discussed Informed consent was obtained for the procedure, including sedation. A time out was performed for patient safety. Prep Under sterile conditions the site was prepped with chlorhexidine and full barrier precautions were employed. Technique The artery was identified by palpation. The artery was accessed using a modified Seldinger technique. The catheter was advanced and sutured in place. Waveforms were good. A dressing was applied. Comments Attempt were made by credit department manager first. Complications None Ha Hernandez MD Business Unit Managerconsumer relations complaint clerk Division of Pulmonary, Critical Care, & Sleep Medicine [facility] 05/17/2025 * Alexandra Brown - 05/17/2025 5:36 AM CDT MRI WIRES ATTACHED * Hiren Rodriguez DO - 05/17/2025 3:40 AM CDT Endotracheal Intubation Procedure Note Indications: respiratory failure and AMS Performed by : Hiren Rodriguez DO Procedure: Pre-oxygenation with 1.0 alexandra oxygen Ambu bag: yes Oral airway: no Sedation: etomidate Paralytic: rocuronium 100 mg Equipment: C-Mac 4 blade was used, 7.5 cuffed ETT Number of attempts: 1 ETT location confirmed by auscultation and CO2 detector ETT secured to 24 cm at the teeth Complications: None; patient tolerated the procedure well.' Condition stable. Recommendations: CXR ordered to verify placement. Attending Attestation: This procedure was performed independently Hiren Rodriguez DO PCCM Fellow 05/17/2025 3:41 AM Cosigned by Nicolás Coats DO at 05/19/2025 7:12 PM CDT documented in this encounter Consult Notes * Daly Buckner, PHONG/JOSEY - 05/28/2025 1:20 PM CDTAssociated Order(s): IP CONSULT TO NUTRITIONAL SERV BRIEF SYNOPSIS: Nutrition Risk Identified but does not meet malnutrition criteria. Nutrition Plan: Current diet order: Minced & Moist (5) / Mech Altered (DYS2);Cardiac Standard (1000 ml fluid restriction) Ensure High Protein (160 kcals, 16 g protein, 19 g carbohydrate) BID Recommendation to Physician: RD to liberalize cardiac restrictions as pt has had poor po intake CLINICAL NUTRITION ASSESSMENT: RD consulted for DM and CHF education. Pt currently on minced moist/mech altered with cardiac restrictions. Intake variable between 0-85%- 38% average meal intake of documented meals in the past 48hours, which is not considered adequate. Pt noted to be disoriented to situation per EMR documentation. RD visited pt in room. She is asleep but wakes to name. She is sleepy throughout this visit. She answers yes/no questions by shaking her head. Pt is not appropriate for in depth nutrition education at this time. RD provided consistent carb diet handout and set it with pt's things for family to review if able. Recommend liberalizing diet as pt with variable intake and on mech altered consistency. RD will also order ensure HP BID to aid in kcal/pro intake. Labs reviewed. RD will continue to monitor. Med/Surg History and Clinical Diagnoses: 64 year old female with history of HFrEF (EF 25% 02/2025), severe TR, MSSA TV endocarditis with AICD removal in 07/2024, Afib on Xarelto, intellectual disability due to TBI, HTN, IDDM, and hypothyroidism who presented to [facility] on 05/16/25 for generalized swelling and 9 lbs weight gain Height: 167.6 cm (5' 6) BMI: Body mass index is 36.96 kg/m??. BMI Range: Morbidly Obese Class 3 IBW/lb (Calculated) Female: 130 Recent Weights/Methods 05/20/2025 0400 05/21/2025 0400 05/22/2025 0400 05/23/2025 0330 05/23/2025 2330 05/27/2025 0400 05/28/2025 0400 05/28/2025 0752 Weight: 111.1 kg (244 lb 13.5 oz) 109.3 kg (241 lb 1.1 oz) 107.5 kg (237 lb) 106.5 kg (234 lb 12.8 oz) 104.6 kg (230 lb 11.2 oz) 104.1 kg (229 lb 6.4 oz) 104.1 kg (229 lb 6.4 oz) 103.9 kg (229 lb) Weight Method : Bed scale Bed scale Bed scale Bed scale Bed scale Bed scale Bed scale -- Weight comments: reviewed, weight trending down, believe this is related to net fluid loss of 11L since admission Admission weight: Weight: 120.3 kg (265 lb 4.8 oz) (05/15/252204) Most recent weight: Weight: 103.9 kg (229 lb) (05/28/25 075) Current tube feeding order: VHP @ 40 PO INTAKE Current diet order: Minced & Moist (5) / Mech Altered (DYS2);Cardiac Standard (1000 ml fluid restriction) Nutrition recommendation: alter/change nutrition order Food Allergies: No known food allergies Last Percent Meal Eaten (%): 20 % (100% of Ensure) (05/28/25 0800) 48 hr PO INTAKE Percent Meal Eaten (%) Av.8 % Min: 0 % Max: 85 % None Pain affecting intake: No Chewing/Swallowing: (ETT; no enteral access) GI Concerns: None Stools: Unmeasured Stool Occurrence: 1 (05/28/25 0600) Skin/Wound: WDL Estimated Needs: KCAL: 3423-2105 (11-14 kcal/kg ABW) Protein (g): 148g (2.5 g/kg IBW; obese on vent) Fluid (ml): (1-2 L/day or fluid per MD) Needs based on: Kcal/kg- (Comment) (ABW of 120.7kg) Recommended Access Route: TF Labs: Recent Labs Component Name 05/28/25 1021 05/28/25 0634 05/27/25 1058 05/22/25 0415 05/21/25 1905 05/21/25 1601 05/21/25 0329 NA 141 142 143 - 136 - 135* POTASSIUM 3.9 4.1 4.3 - 3.8 - 3.7 CO2 33* 34* 31* - 29 - 29 BUN 31* 35* 38* - 33* - 29* CREATININE 0.81 0.83 0.82 - 0.99* - 0.96 GLUCOSE 183* 165* 152* - 166* - 157* CALCIUM 9.6 9.8 10.0 - 8.8 - 8.8 ALT 31 - - - 19 - 21 ALKPHOS 244* - - - 230* - 254* AST 58* - - - 43* - 37* EGFR 82* 79* 80* - 64* - 66* - = values in this interval not displayed. Recent Labs Component Name 05/28/25 0634 05/27/25 1058 05/27/25 0417 PHOS 4.6 3.9 4.0 Recent Labs Component Name 05/28/25 0634 05/27/25 0417 05/26/25 0444 MAGNESIUM 2.1 2.0 2.2 Recent Labs Component Name 05/28/25 0633 05/27/25 0417 05/26/25 0444 HGB 13.1 12.9 12.7 HCT 40.7 40.7 40.3 Recent Labs Component Name 05/16/25 0632 HGBA1C 7.2* No data found. MEDICATIONS FOR CURRENT ENCOUNTER: SCHEDULED MEDICATIONS: 0.9% NaCl injection 3 mL, Intracatheter, q8h apixaban (Eliquis) tablet 5 mg, Oral, BID bumetanide (Bumex) tablet 0.5 mg, Oral, BID busPIRone (Buspar) tablet 10 mg, Oral, BID cefadroxil (Duricef) capsule 500 mg, Oral, BID cyanocobalamin (Vitamin B-12) tablet 500 mcg, Oral, QDAY empagliflozin (Jardiance) tablet 10 mg, Oral, QDAY escitalopram (Lexapro) tablet 10 mg, Oral, QDAY guaiFENesin ER 12hr (Mucinex) tablet 600 mg, Oral, q12h insulin aspart (NovoLOG) pen 0-18 Units, Subcutaneous, TID WC insulin glargine (Lantus) pen 5 Units, Subcutaneous, AT BEDTIME metoprolol succinate XL 24hr (Toprol XL) tablet 100 mg, Oral, QDAY perflutren lipid microsphere (Definity) injection 0.5 mL, Intravenous, intra- Procedure multiple sacubitril-valsartan (Entresto) 24-26 MG tablet 0.5 tablet, Oral, BID spironolactone (Aldactone) tablet 12.5 mg, Oral, QDAY vitamin D3 (Cholecalciferol) tablet 5,000 Units, Oral, QDAY [START ON 05/29/2025] levothyroxine (Synthroid) tablet 75 mcg, Oral, QAM [START ON 05/29/2025] polyethylene glycol 3350 (Miralax) packet 17 g, Oral, QDAY [START ON 05/29/2025] senna (Senokot) tablet 17.2 mg, Oral, QDAY CONTINUOUS MEDICATIONS: PRN MEDICATIONS: Or Or 0.9% NaCl injection 1-10 mL, Intracatheter, PRN acetaminophen (Tylenol) tablet 500 mg, Oral, q6h PRN albuterol HFA (Proventil; Ventolin; Proair) 108 (90 Base) MCG/ACT inhaler 2 puff, Inhalation, q6h PRN dextrose IV 12.5 g, Intravenous, PRN dextrose IV 25 g, Intravenous, PRN glucagon (Glucagen) injection 1 mg, Subcutaneous, PRN glucose (Diabetic Use) oral gel, Oral, PRN Edema LUE Edema: Moderate pitting, indentation subsides rapidly (05/28/25919) RLE Edema: Mild pitting, slight indentation (05/28/25919) LLE Edema: Mild pitting, slight indentation (05/28/25919) Nutrition Diagnostic Statement: Inadequate oral intake related to:: swallowing difficulty (mechanical ventilation) as evidenced by:: need for parenteral or enteral intake to supplement oral intake Nutrition Diagnostic Statement Progress: Nutrition problem continues Nutrition Intervention: Enteral nutrition: Monitoring: TF, I/Os, BM, labs, meds, weight Evaluation: Nutrition Goal: Total intake will meet estimated nutrient needs Nutrition Goal Timeframe: Throughout stay Nutrition Goal Progress: Continue with current goal Ascom [id number] * Re Holcomb RD/LDN - 05/27/2025 4:49 PM CDT Diabetes Education: Consult/Progress Note 05/27/2025 Consult received and chart reviewed. Loretta Penn is a 64 year old female admitted with SOB, found to be in cardiogenic shock c/b hypervolemic hyponatremia, acute on chronic HF. Positive hx of DM - Type 2. Met with pt and sisters at bedside. Pt with AMS and family assisted in providing history. Family reported that they were administering Lantus 14 U daily and Humalog 13 U with breakfast and lunch and 10 U with dinner until around one week ago when pt began feeling sick and appetite waspoor. Family decreased Humalog doses because pt was experiencing low blood sugars, but they did notspecify how many units they were administering. Pt wears a Dexcom CGM to monitor blood sugars. Family stated that pt struggles with eating the right things and likes fast food which they limit to once a week. However, subsequently spoke with primary MD who reported that she was told pt eats whatever she wants without regard for diet restrictions. Consulted clinical nutrition for diabetes and HFdiet education. BG at admission was 164 mg/dL and has ranged from 114 to 178 mg/dL over the past 24 hours. Current HbA1C is 7.2%. Inpatient antihyperglycemic medication regimen includes: empagliflozin (Jardiance) tablet 10 mg, Oral, QDAY insulin aspart (NovoLOG) pen 0-18 Units, Subcutaneous, TID WC insulin glargine (Lantus) pen 5 Units, Subcutaneous, AT BEDTIME Home Medications Medications[1] LABS Recent Labs Component Name 05/16/25 0632 HGBA1C 7.2* Admitting Blood Glucose: Glucose Bedside (mg/dL): 378 mg/dL Blood Sugar Range Past 24 hours: No data recorded No data found. Discussed and reviewed the following: __x__ HbA1C explanation/results/goal __x__ Glucose Monitoring: Meter Type: Dexcom ____ Hypoglycemia: Prevention, causes, symptoms, treatment -- Pt follows with OP bricklayer's assistant who documented on 04/19/25 pt with <1% low blood sugars on per CGM data. Hypoglycemia educational handout attached to AVS. __x__ Insulin--Type and current dose __x__ Basic overview of nutrition guidelines ____ Seen by RD this admission -- consulted __x__ DM education folder given to pt and/or extra educational materials [facility] Recommendations and Discharge Needs: -Consider adjusting inpatient antidiabetic medication regimen PRN to achieve glycemic goal of <180 mg/dL while avoiding hypoglycemia, per ADA guidelines Re Holcomb MBA, RD/LDN Diabetes Care & [employer] Plasma Etcher Ascom [id number] [1] Medications Prior to Admission Medication Sig Dispense Refill acetaminophen (Tylenol) 500 MG tablet Take 1 (one) tablet by mouth every 6 hours as needed ACETAMINOPHEN-DM PO Take 30 mL by mouth every 4 hours as needed albuterol HFA (Proventil; Ventolin; Proair) 108 (90 Base) MCG/ACT inhaler Inhale 2 (two) puffs by mouth every 6 hours as needed for Shortness of Breath ascorbic acid (VITAMIN C) 500 MG tablet Take 1 (one) tablet by mouth once daily busPIRone (Buspar) 10 MG tablet Take 1 (one) tablet by mouth 2 times daily Carvedilol (COREG PO) (Patient not taking: Reported on 05/15/2025) cefadroxil (Duricef) 500 MG capsule Take 2 (two) capsules by mouth 2 times daily Cholecalciferol 125 MCG (5000 UT) Take 1 (one) tablet by mouth once daily Citalopram Hydrobromide (CELEXA PO) (Patient not taking: Reported on 05/15/2025) cyanocobalamin (Vitamin B-12) 500 MCG tablet Take 1 (one) tablet by mouth once daily docusate sodium (Colace) 100 MG capsule Take 1 (one) capsule by mouth 2 times daily escitalopram (Lexapro) 10 MG tablet Take 1 (one) tablet by mouth once daily Ferrous Sulfate (IRON PO) Take 1 tablet by mouth once daily ferrous sulfate EC 325 (65 Fe) MG tablet Take 1 (one) tablet by mouth once daily fluticasone propionate (Flonase) 50 MCG/ACT nasal spray [facility] 2 (two) sprays into each nostril 2 times daily furosemide (Lasix) 40 MG tablet Take 1 (one) tablet by mouth 2 times daily with morning and eveningmeal Gemtesa 75 MG tablet Take 1 (one) tablet by mouth once daily hydrocortisone (Hytone) 1 % cream Apply to affected area as needed (itching) hydrOXYzine HCl (Atarax) 25 MG tablet Take 1 (one) tablet by mouth every 4 hours as needed for Itching insulin aspart (NovoLOG) FlexPen Inject 15 (fifteen) Units subcutaneously 3 times daily,before breakfast/lunch/bedtime 15- 18 units before each meal insulin lispro (HumaLOG) 100 UNIT/ML vial Inject 18 (eighteen) Units subcutaneously 3 times daily before meals Family report 18 units Qam 18 units Qpm 10 units QHS Insulin NPH Isophane & Regular (HUMULIN 70/30 SC) (Patient not taking: Reported on 05/15/2025) levothyroxine (Synthroid) 75 MCG tablet Take 1 (one) tablet by mouth every morning lidocaine (Lidoderm) 4 % patch Apply 1 (one) patch to skin once daily as needed (pain) LISINOPRIL & DIET MANAGE PROD PO (Patient not taking: Reported on 05/15/2025) Magnesium Oxide -Mg Supplement 400 (240 Mg) MG Take 1 (one) tablet by mouth once daily METFORMIN & DIET MANAGE PROD PO (Patient not taking: Reported on 05/15/2025) metoprolol succinate XL 24hr (Toprol XL) 100 MG tablet Take 1 (one) tablet by mouth once daily nitrofurantoin monohyd macro crystals (MACROBID) 100 MG capsule Take 1 Cap by mouth 2 times daily with morning and evening meal (Patient not taking: Reported on 05/15/2025) 14 Cap 0 nortriptyline (Pamelor) 10 MG capsule Take 1 (one) capsule by mouth once daily omeprazole (PriLOSEC) 20 MG capsule Take 1 (one) capsule by mouth once daily OXYBUTYNIN CHLORIDE PO (Patient not taking: Reported on 05/15/2025) polyethylene glycol 3350 (Miralax) 17 g packet Take 17 (seventeen) g by mouth once daily as needed RANITIDINE & DIET MANAGE PROD PO (Patient not taking: Reported on 05/15/2025) spironolactone (Aldactone) 25 MG tablet Take 0.5 (one-half) tablet by mouth once daily TRAMADOL & DIETARY MANAGE PROD PO (Patient not taking: Reported on 05/15/2025) Xarelto 20 MG tablet Take 1 (one) tablet by mouth once daily * Jeremiah Pérez MSW - 05/27/2025 4:32 PM CDTAssociated Order(s): IP CONSULT TO CASE MANAGEMENT SW acknowledges consult. See previous note. RISHI He 05/27/2025 4:34 PM * Re Holcomb RD/LDN - 05/27/2025 12:39 PM CDTAssociated Order(s): IP CONSULT TO LABOR RELATIONS SPECIALIST Diabetes Education: Consult received and chart reviewed. BG over the past 24 hours has ranged from 73 to 178 mg/dL. Patient is currently on an antidiabetic medication regimen of: empagliflozin (Jardiance) tablet 10 mg, Oral, QDAY insulin aspart (NovoLOG) pen 0-18 Units, Subcutaneous, TID WC insulin glargine (Lantus) pen 5 Units, Subcutaneous, AT BEDTIME Depending on glycemic control with this regimen, consider making adjustments PRN to achieve BG goalof <180 mg/dL while avoiding hypoglycemia, per ADA guidelines. Blood Sugar Range Past 24 hours: No data recorded No data found. Recent Labs Component Name 05/16/25 0632 HGBA1C 7.2* Pt not appropriate for education at this time d/t AMS per chart review. Will attempt to follow-up for DM education at a later time/date if appropriate. Relevant education materials attached to chart/AVS. Re Holcomb MBA, PHONG/MAGDALENO Diabetes Care & [employer] Plasma Etcher Ascom [id number] * Zainab Thompson LSW - 05/27/2025 11:37 AM CDTAssociated Order(s): IP CONSULT TO RETAIL EVENT ASSISTANT New Facility Placement Referral source: Physician/Therapy Recommendations Date of referral:05/26 Admitted from: home Patient Goal (short term and prison): short term Actual Level of Care/Dispostion Details Patient / Family provided post-acute services choices?: Yes Spoke with (Phone number, if not patient. Family participation encouraged): Pt had her sister- SANA-Laura Dobbs [phone] on speaker phone when SW entered room. Pt only pointed at phone and did not attempt verbal answers. Family Contacted: Yes List of facilities provided (within patient and geographic preference): Yes Referrals initiated: Continued Care and Services - Admitted Since 05/15/2025 Destination Service Provider Request Status Services Address Phone Fax Patient Preferred [facility] Pending - Request Sent -- [address] [facility] [id number] -- [facility] Declined Patient does not meet the level of care required for admission -- [address] [facility] [id number] -- Home Medical Care Service Provider Request Status Services Address Phone Fax Patient Preferred [facility] Pending - Request Sent -- [address] [facility] [address] [phone] -- If Medicare-3 day qualifying stay verified: Yes monitoring facility responses Comments: Pt's SANA Dobbs requesting [facility] as pt's primary choice. Discussed recommendations for SNF, but POA wanting [facility] to review since pt had been there in past and was successful. SANA is planning to come this afternoon to hospital and is aware that a SNF listing has been leftat bedside for her to review for backup preferences. POA encouraged to contact with back up preferences. Zainab Thompson LODE MINER BLASTING, REACH LIFT TRUCK DRIVER [phone] * Rossana Agosto - 05/25/2025 9:00 PM CDTAssociated Order(s): IP CONSULT TO PASTORAL CARE Coal Cutter responded to Pastoral Care consult by offering support to Loretta, who per her RN had pulled out her NG tube and had to have it replaced. Also per RN, Loretta was crying because she hadn't passed her swallow eval. Coal Cutter attempted to be comforting, reassuring presence in the face of Loretta's distress, taking her hand and speaking soothingly to her. She asked for something to drink andchaplain clarified with RN she can only have glycerine swabs; image scientist let Loretta know. stayed for several more minutes trying to comfort Loretta until image scientist was called away. chaplain Alicia Ascom [phone] crew caller [phone] * Christin Saavedra RD/JOSEY - 05/19/2025 10:25 AM CDTAssociated Order(s): IP CONSULT TO NUTRITIONAL SERV CLINICAL NUTRITION BRIEF Recommendations to Physician: Recommend changing tube feeding order to match recs below. Infuse TFs for only 22 hrs each day -- Hold TF for 1 hour before and 1 hour after administration oflevothyroxine to reduce risk of drug/nutrient interactions TUBE FEEDING RECOMMENDATIONS: TF recommendations OFF propofol - Vital High Protein at goal of 75 ml/hr (x 22 hrs) Provides 1650 kcal, 144 g protein, 185 g carbohydrate, and 1380 ml free water + 50 ml q 6 hrs free water flush or per MD if on IVF + 100 ml q 4 hrs free water flush or per MD if not on additional fluids Start early enteral nutrition within 24-48 hours of intubation Start TF at 20 ml/hr, advance 20 ml q 24 hrs to be at goal by day 4 of intubation. *ESPEN guidelines recommend slow advancement rate for ICU patients* Comments: Consulted per tube feeding protocol. Pt remains intubated and sedated, receiving precedex and norepinephrine at 0.01 mcg/kg/min. Propofol stopped 05/18. Pt has Vital High Protein ordered and infusingat 30 mL/hr, recommend changing tube feeding order to match recs below. RD will follow up per clinical nutrition guidelines. Med/Surg History and Clinical Diagnoses: 64 year old female with history of HFrEF (EF 25% 02/2025), severe TR, MSSA TV endocarditis with AICD removal in 07/2024, Afib on Xarelto, intellectual disability due to TBI, HTN, IDDM, and hypothyroidism who presented to [facility] on 05/16/25 for generalized swelling and 9 lbs weight gain Height: 167.6 cm (5' 6) Body mass index is 39.56 kg/m??. BMI Range: Morbidly Obese Class 3 Wt Readings from Last 3 Encounters: 05/19/25 111.2 kg (245 lb 1.6 oz) 07/15/16 90.7 kg (200 lb) Current diet order: NPO Food Allergies: No known food allergies P.O.intake for past 48 hours: No data recorded. Skin/Wound: WDL Stools: Last BM LAMBSKIN TRIMMER. Labs reviewed. Medications noted. Nutrition recommendation: alter/change nutrition order Diet Education: RD to follow per clinical nutrition guidelines. Christin Saavedra RD/JOSEY 05/19/2025 10:[address] Weekend Pager: * Hina Prajapati APRN-ORNAMENTAL MACHINE OPERATOR - 05/17/2025 10:21 AM CDTAssociated Order(s): IP CONSULT TO PALLIATIVE CARE Palliative Medicine Consult Note Loretta Penn Age: [age] year old Date of : 1960 Date of Admission: 05/15/2025 Consult requested by: Dr. Caldwell, cardiology Reason for consult: Complex decision making, multiple admissions over past 6 months Chief Complaint: edema Summary 64 y/o F with significnat PMH of HFrEF, AICD removal 07/2024 2/2 infected ICD lead, severe TR, MSSATV endocarditis on cefedroxil, a fib on xarelto, intellecutal disability 2/2 TBI, HTN, DM 2, hypothyropidism. Per chart review, patient follows with [facility] primarily. Of note, patient recently admitted at [facility] forHF exacerbation in 02/2025; per chart review, patient transferred to [facility] from OSH for othorpnea + fluid retention for 2-3 weeks. Pt Lasix increased, added spironolactone but had no improvement. BNP elevated to 2800s, at that time, started on IV bumex. EKG showing afib. Echo showing EF 40- 45%. GDMT was optimized to Entresto 24-26 (0.5 tab) BID, metoprolol XR 100 mg daily, spironolactone 25 mg daily, and Jardiance 10 mg daily. Pt presented to [facility] on 05/15 with edema. Labs notable for hyponatremia 122, K of 6.1, INR 2.9, AST 59, Cr 1.48, Tbili 7.0, BNP 2200. CT CAP with moderate pericardial effusion, right heart dysfunction,body wall edema, pulmonary edema. Cardiology team spoke to pt's sister mounika. Per sister, patient can normally get agitated at home, usually over her food. Sister is asking whether we can fix her after he volume status is controlled. Appears to have poor understanding into current situation as family admits that patient will do whatever Loretta wants to do, including eating high salt foods that will worsen her HF exacerbations. Discussed possible need for sedation if patient is not amenable to lab draws, given that per nursing 4 people had to hold patient to get BP taken. Family does not want her to get sedated, but understands the need for it. Pls confirm with family before proceeding with any IV/sedation measures. Pn 05/17, patient with change in mental status, obtunded. Concern for airway protection. Pt intubated, moved to ICU. Palliative care was consulted to assist with complex medical decision making. Assessment Pt visited at bedside. No family present at time of visit. Patient was intubated, sedated on fent/prop. She was on low dose levophed gtt at time of visit. She did not appear to be in acute distress. Spoke to patient's sister Mounika via phone. Introduced myself and the role of palliative care. Mounika endorsed that she is patient's power of thread twister. She attempted to get patient's other sisterDilia on the phone, but Dilia did not answer at that time. Mounika had moderate clinical understanding of patient's current conditions. I explained patient's intubated status. We discussed heart failure in general. I discussed that heart failure is typically a progressive disease, that requires close monitoring, frequent medication adjustments, and dietary adherence. She endorsed that it is difficult to manage her sister's heart failure, as she desires to eat food that is not within her dietary restrictions. She stated that patient lives alone, though both she and her sister check on her frequently. She stated that patient was getting more frustrated with the, ???poking and prodding,?? that came along with the care necessary to control her heart failure. She expressed disappointment, as patient's heart failure was getting better after her admission to [facility] in the spring. However, now her heart failure seems to have worsened. Mounika was tearful during this conversation, expressing that she wishes to help her sister, but that she is not quite sure what the right thing to do would be. I provided empathy and support. I endorsed that we hope that patient can get better and get off of the breathing machine, but it is possible that she could continue to be unstable. At this point, patient's sister Dilia entered the call via 3 way call. I reintroduced myself and the role of palliative care. She stated that the last update she received was that patient would be sedated. I described patient's intubated status. At this point, Dilia became understandably upset. Sheendorsed a desire to transfer to [facility]. It was clear at that point that the conversation regarding goals of care could not continue, and that it would be better to continue the conversation at a different time. We made plans to do so. Summary of Recommendations: Goals of Care: Goals of care conversations ongoing. PC will follow up with family next week, possibly will attempt FM next week. Current code status: Full Code Decision maker: Pt does not have advance directive on file. Pt's sisters Nicole and Dilia both identify themselves as POA. They are assisting with decision making. Decision making capacity: At the time of exam, patient deemed NOT decisional by this practitioner today as the following are NOT true: 1) Patient appears to understand the decision options surrounding their condition. 2) Patient understands the risk and benefits of each option. 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 Per chart review, patient follows with [facility] primarily. Of note, patient recently admitted at [facility] forHF exacerbation in 02/2025; per chart review, patient transferred to [facility] from OSH for othorpnea + fluid retention for 2-3 weeks. Pt Lasix increased, added spironolactone but had no improvement. BNP elevated to 2800s, at that time, started on IV bumex. EKG showing afib. Echo showing EF 40- 45%. GDMT was optimized to Entresto 24-26 (0.5 tab) BID, metoprolol XR 100 mg daily, spironolactone 25 mg daily, and Jardiance 10 mg daily. Pt presented to [facility] on 05/15 with edema. Labs notable for hyponatremia 122, K of 6.1, INR 2.9, AST 59, Cr 1.48, Tbili 7.0, BNP 2200. CT CAP with moderate pericardial effusion, right heart dysfunction,body wall edema, pulmonary edema. Cardiology team spoke to pt's sister mounika. Per sister, patient can normally get agitated at home, usually over her food. Sister is asking whether we can fix her after he volume status is controlled. Appears to have poor understanding into current situation as family admits that patient will do whatever Loretta wants to do, including eating high salt foods that will worsen her HF exacerbations. Discussed possible need for sedation if patient is not amenable to lab draws, given that per nursing 4 people had to hold patient to get BP taken. Family does not want her to get sedated, but understands the need for it. Pls confirm with family before proceeding with any IV/sedation measures. Pn 05/17, patient with change in mental status, obtunded. Concern for airway protection. Pt intubated, moved to ICU. Palliative care was consulted to assist with complex medical decision making. Problem list: Active Problems: Hyperkalemia Hyperbilirubinemia Hyponatremia Transaminitis Elevated alkaline phosphatase level Acute on chronic congestive heart failure, unspecified heart failure type (HCC) Obesity with serious comorbidity, unspecified class, unspecified obesity type Demand ischemia (HCC) History of endocarditis TBI (traumatic brain injury) (HCC) Hypothyroidism Atrial fibrillation (HCC) Prolonged Q-T interval on ECG Pericardial effusion (HCC) Acute kidney injury Type 2 diabetes mellitus, without long-term current use of insulin (HCC) Shortness of breath Other shock (HCC) Review of Systems: Positive findings are in bold TOI 2/2 AMS Prior History Patient Active Problem List Diagnosis Date Noted Hyperkalemia 05/15/2025 Priority: Not Prioritized Hyperbilirubinemia 05/15/2025 Priority: Not Prioritized Hyponatremia 05/15/2025 Priority: Not Prioritized Transaminitis 05/15/2025 Priority: Not Prioritized Elevated alkaline phosphatase level 05/15/2025 Priority: Not Prioritized Acute on chronic congestive heart failure, unspecified heart failure type (HCC) 05/15/2025 Priority: Not Prioritized Obesity with serious comorbidity, unspecified class, unspecified obesity type 05/15/2025 Priority: Not Prioritized Demand ischemia (HCC) 05/15/2025 Priority: Not Prioritized History of endocarditis 05/15/2025 Priority: Not Prioritized TBI (traumatic brain injury) ([facility]) 05/15/2025 Priority: Not Prioritized Hypothyroidism 05/15/2025 Priority: Not Prioritized Atrial fibrillation (HCC) 05/15/2025 Priority: Not Prioritized Prolonged Q-T interval on ECG 05/15/2025 Priority: Not Prioritized Pericardial effusion (HCC) 05/15/2025 Priority: Not Prioritized Acute kidney injury 05/15/2025 Priority: Not Prioritized Type 2 diabetes mellitus, without long-term current use of insulin (HCC) 05/15/2025 Priority: Not Prioritized Shortness of breath 05/15/2025 Other shock (HCC) 05/15/2025 Past Surgical History[1] Social History Social History Social History Narrative Not on file Family History Family History[2] Allergies[3] Performance Score/Scales prior to admission: Palliative Performance Scale (PPS) = 70 % Current Inpatient Medications Scheduled: 0.9% NaCl injection 3 mL, Intracatheter, q8h artificial tears ophthalmic ointment, Each Eye, q8h bumetanide (Bumex) injection 4 mg, Intravenous, TID busPIRone (Buspar) tablet 10 mg, Enteral Tube, BID cephalexin (Keflex) suspension 500 mg, Enteral Tube, q12h chlorhexidine (Peridex) 0.12 % oral solution 15 mL, Mouth/Throat, BID insulin aspart (NovoLOG) pen 0-12 Units, Subcutaneous, q6h insulin glargine (Lantus) pen 5 Units, Subcutaneous, AT BEDTIME iopamidol (Isovue 370) 76 % contrast, Intravenous, Contrast - Once magnesium sulfate 4 g in 100 mL bolus, Intravenous, Once pantoprazole (Protonix) injection 40 mg, Intravenous, QDAY [COMPLETED] hypertonic 3% NaCl bolus 100 mL, Intravenous, Once [COMPLETED] hypertonic 3% NaCl bolus 100 mL, Intravenous, Once [COMPLETED] LORazepam (Ativan) injection 1 mg, Intravenous, Once [COMPLETED] potassium chloride 20 mEq in 100 mL SW bolus, Intravenous, Once [Held by Provider] escitalopram (Lexapro) tablet 10 mg, Oral, QDAY [Held by Provider] metoprolol succinate XL 24hr (Toprol XL) tablet 100 mg, Oral, QDAY [Held by Provider] sodium zirconium cyclosilicate (Lokelma) packet 5 g, Oral, TID AC [Held by Provider] spironolactone (Aldactone) tablet 12.5 mg, Oral, QDAY [START ON 05/18/2025] cyanocobalamin (Vitamin B-12) tablet 500 mcg, Enteral Tube, QDAY [START ON 05/18/2025] levothyroxine (Synthroid) tablet 75 mcg, Enteral Tube, QAM [START ON 05/18/2025] rivaroxaban (Xarelto) tablet 20 mg, Enteral Tube, QPM [START ON 05/18/2025] vitamin D3 (Cholecalciferol) tablet 5,000 Units, Enteral Tube, QDAY Continuous: fentaNYL 2500 mcg/50mL infusion, Intravenous, Continuous norepinephrine (Levophed) 8 mg/250 ml NS infusion premix, Intravenous, Continuous propofol (Diprivan) 1000 mg in 100 mL infusion, Intravenous, Continuous PRN: Or Or 0.9% NaCl injection 1-10 mL, Intracatheter, PRN acetaminophen (Tylenol) tablet 500 mg, Oral, q6h PRN albuterol HFA (Proventil; Ventolin; Proair) 108 (90 Base) MCG/ACT inhaler 2 puff, Inhalation, q6h PRN dextrose IV 12.5 g, Intravenous, PRN dextrose IV 25 g, Intravenous, PRN fentaNYL (Sublimaze) bolus from bag 50 mcg, Intravenous, BOLUS FROM BAG PRN glucagon (Glucagen) injection 1 mg, Subcutaneous, PRN glucose (Diabetic Use) oral gel, Oral, PRN hydrOXYzine HCl (Atarax) tablet 25 mg, Oral, q4h PRN methocarbamol (Robaxin) tablet 750 mg, Oral, q6h PRN polyethylene glycol 3350 (Miralax) packet 17 g, Oral, QDAY PRN Physical Exam Vitals: 05/17/25 0802 05/17/25 0820 05/17/25 0900 05/17/25 0924 BP: 82/44 85/44 (!) 79/44 Pulse: 86 83 108 Resp: 20 17 Temp: 96.6 ??F (35.9 ??C) SpO2: 98% (!) 63% Weight: Height: Positive findings are in bold Exam: sedated, intubated Resp: intubated, compliant with vent CV: RRR Abd: + BS, soft Ext: edema BLE DP palp bilat Skin: no ulcers callous or maceration Neuro: sedated Muscskel: no synovitis in knees ankles, wrists or hands Labs I have personally reviewed and interpreted lab results CBC: Recent Labs Component Name 05/17/25 031 WBC 4.1 HGB 12.9 HCT 37.7 BMP: Recent Labs Component Name 05/17/25 0733 05/17/25 031 POTASSIUM 3.4* 3.7 NA 124* 123* 123* CL 89* 89* CO2 26 26 CREATININE 1.18* 1.27* BUN 23 24 CALCIUM 8.2* 8.3* PHOS 2.0* 3.1 MAGNESIUM - 1.9 LFT: Recent Labs Component Name 05/17/25 0733 05/16/25 0805/15/25 9527 PROT - - 6.9 AST - - 71* ALT - - 41 ALKPHOS - - 351* TBILI - - 7.2* ALB 2.8* - 3.1* 3.1* - = values in this interval not displayed. Recent Labs Component Name 05/17/25 0733 05/17/25 0311 CALCIUM 8.2* 8.3* PHOS 2.0* 3.1 MAGNESIUM - 1.9 COAGULATION: Recent Labs Component Name 05/15/25 1454 PT 29.5* INR 2.9 THYROID:No results for input(s): TSH, T3, T4 in the last 39774 hours. CARDIAC:No results for input(s): TROPONIN in the last 06758 hours. LIPASE: Recent Labs Component Name 05/15/25 1454 LIPASE 7* Microbiology Results (past 5 days)-personally reviewed No results found for this or any previous visit (from the past 124 hours). Radiology Results - Past 24 Hours I have personally reviewed radiology results CT Head Wo Contrast Result Date: 05/17/2025 IMPRESSION: 1.No acute intracranial hemorrhage, midline shift, or mass effect. 2.Left side the sinusitis. The left nasogastric tube is in place. > Dictated by Claire Ortiz MD, (development vice president). > Dictated by Instrument Technologist I, Tripp Pablo MD have personally reviewed and interpretedthis examination/study. > Interpreting Provider: Tripp Pablo MD on 05/17/2025 9:24 AM XR Abdomen Kub Portable Result Date: 05/17/2025 IMPRESSION: Enteric tube terminates in the gastric body. > Interpreting Provider: Felipe Munoz MD on 05/17/2025 9:[address] Chest Pe W Abd Pelvis W Cont Result Date: 05/15/2025 Impression: 1.No evidence of acute pulmonary embolism. There is a retained metallic wire within oneof the right inferior lobe pulmonary arteries, likely iatrogenic. 2.Cardiomegaly and a moderate-sized pericardial effusion. Reflux of contrast into the hepatic veins suggesting right heart dysfunction. 3.Interstitial pulmonary edema, small volume ascites and diffuse body wall edema suggesting hypervolemia. Preliminary findings were discussed with the patient's care provider, Dr Sil Cordero by Dr. Tom Dinh via telephone at 05/15/2025 8:24 PM with readback comprehension and verification. > Dictated by Tom Dinh DO, (development vice president). > Dictated by Instrument Technologist I, Ann-Marie Campa MD have personally reviewed and interpreted this examination/study. > Interpreting Provider: Ann-Marie Campa MD on 05/15/2025 10:20 PM XR CHEST 2VW Result Date: 05/15/2025 IMPRESSION: A linear wire-like density projects over the right perihilar region. Cardiomegaly. Likely enlarged pulmonary arteries. Mild interstitial edema. Trace pleural effusions. No pneumothorax. > Interpreting Provider: Felipe Munoz MD on 05/15/2025 3:03 PM Results for orders placed or performed during the hospital encounter of 05/15/25 EKG 12-LEAD Result Value Ref Range Ventricular Rate 106 BPM QRS Duration ms 92 ms Q-T Interval ms 454 ms QTC Calculation (Bezet) 603 ms Calculated R Duvall 0 degrees Calculated T Duvall -31 degrees Interpretation EKG ATRIAL FIBRILLATION WITH RAPID VENTRICULAR RESPONSE WITH PREMATURE VENTRICULAR OR ABERRANTLY CONDUCTED COMPLEXES INDETERMINATE AXIS PULMONARY DISEASE PATTERN ST ELEVATION CONSIDER INFERIOR INJURY OR ACUTE INFARCT PROLONGED QT ACUTE AK / STEMI Consider right ventricular involvement in acute inferior infarct ABNORMAL ECG NO PREVIOUS ECGS AVAILABLE EKG 12-LEAD Result Value Ref Range Ventricular Rate 79 BPM QRS Duration ms 102 ms Q-T Interval ms 434 ms QTC Calculation (Bezet) 497 ms Calculated R Duvall 123 degrees Calculated T Duvall -118 degrees Interpretation EKG ATRIAL FIBRILLATION WITH A COMPETING JUNCTIONAL PACEMAKER LOW VOLTAGE QRS ANTEROLATERAL INFARCT , AGE UNDETERMINED ABNORMAL ECG WHEN COMPARED WITH ECG OF 15-MAY-2025 14:20, MANUAL COMPARISON REQUIRED, DATA IS UNCONFIRMED Thank you for this consult. Palliative will continue to follow but please contact us with additional or new questions. Recommendations were discussed with the team-cardiology ICU team Pt. is at high risk for complications and morbidity or mortality Pt. is critically ill with vital organ impairment or failure I spent a total of 77 minutes performing chart preparation, review of data, and visit with the patient at bedside, discussion with involved teams, and documenting. KYA Reyes 05/17/2025 10:21 AM Palliative Care Nurse Pracitioner [1] Past Surgical History: Procedure Laterality Date Appendectomy Cholecystectomy [2] No family history on file. [3] Allergies Allergen Reactions Sulfa Drugs Urticaria * Marni Yeager, PHONG/LD - 05/17/2025 9:25 AM CDTAssociated Order(s): IP CONSULT TO NUTRITIONAL SERV BRIEF SYNOPSIS: Nutrition Risk Identified but does not meet malnutrition criteria. Nutrition Plan: Current diet order: NPO Tube Feeding Recommendations -- or equivalent: ON propofol -- currently at 7.24 ml/hr, providing 191 lipid kcals Vital High Protein at goal of 65 ml/hr (x 22 hrs) + Protein flush: 1 pkt/day Prosource (No Carb) protein Provides 1490 kcal, 141 g protein, 160 g carbohydrate, and 1225 ml free water +50 ml q 6 hrs free water flush or per MD if on IVF +100 ml q 4 hrs free water flush or per MD if not on additional fluids OFF propofol Vital High Protein at goal of 75 ml/hr (x 22 hrs) Provides 1650 kcal, 144 g protein, 185 g carbohydrate, and 1380 ml free water +50 ml q 6 hrs free water flush or per MD if on IVF +100 ml q 4 hrs free water flush or per MD if not on additional fluids Recommendation to Physician: + Establish nutrition source via TFs (see recs above) Start early enteral nutrition within 24-48 hours of intubation Start TF at 10 ml/hr, advance 10 ml q 12 hrs to be at goal by day 4 of intubation. *ESPEN guidelines recommend slow advancement rate for ICU patients* Infuse TFs for only 22 hrs each day -- Hold TF for 1 hour before and 1 hour after administration oflevothyroxine to reduce risk of drug/nutrient interactions ----- If pt requires pressor(s) support at a consolidated rate > 0.3, recommend holding TF regimen to reduce risk of bowel ischemia. CLINICAL NUTRITION ASSESSMENT: RD consulted per vent protocol. Noted pt intubated overnight. Receiving propofol and recently started on pressor(s)--levophed. No enteral access appears established at this time. No significant GI issues noted in chart. Labs: Na (124), K+ (3.4) and Phos (2.0) -- receiving IV bolus potassium chloride and Mg sulfate per DEC. Noted concerns for acute HFrEF exacerbation. Cardiology ICU following. Plan to start on IV lasix TID per primary team. Pt with additional hx to T2DM -- receiving insulin regimen, per DEC. A1C = 7.2%. Infusion Meds: Medications[1] Med/Surg History and Clinical Diagnoses: 64 year old female with history of HFrEF (EF 25% 02/2025), severe TR, MSSA TV endocarditis with AICD removal in 07/2024, Afib on Xarelto, intellectual disability due to TBI, HTN, IDDM, and hypothyroidism who presented to [facility] on 05/16/25 for generalized swelling and 9 lbs weight gain Height: 167.6 cm (5' 6) BMI: Body mass index is 42.93 kg/m??. BMI Range: Morbidly Obese Class 3 IBW/lb (Calculated) Female: 130 Recent Weights/Methods 07/15/2016 1659 05/15/2025 2205 05/16/2025 0400 Weight: 90.7 kg (200 lb) 120.3 kg (265 lb 4.8 oz) 120.7 kg (266 lb) Weight Method : -- Bed scale Bed scale Weight comments: reviewed -- weight hx limited LAMBSKIN TRIMMER PO INTAKE Current diet order: NPO Nutrition recommendation: alter/change nutrition order Food Allergies: No known food allergies Last Percent Meal Eaten (%): 100 % (05/16/25 1809) 48 hr PO INTAKE Percent Meal Eaten (%) Av % Min: 100 % Max: 100 % None Pain affecting intake: No Chewing/Swallowing: (ETT; no enteral access) GI Concerns: None Stools: Skin/Wound: WDL Estimated Needs: KCAL: 2404-8707 (11-14 kcal/kg ABW) Protein (g): 148g (2.5 g/kg IBW; obese on vent) Fluid (ml): (1-2 L/day or fluid per MD) Needs based on: Kcal/kg- (Comment) (ABW of 120.7kg) Recommended Access Route: TF Labs: Recent Labs Component Name 05/17/25 0733 05/17/25 0311 05/16/25 2139 05/16/25 0632 05/15/25 2257 05/15/25 1606 NA 124* 123* 123* 121* - 122* 122* 122* POTASSIUM 3.4* 3.7 4.6* - 6.1* 6.1* 6.1* CO2 26 26 25 - 22 22 22 BUN 23 24 27* - 30* 30* 31* CREATININE 1.18* 1.27* 1.34* - 1.48* 1.48* 1.48* GLUCOSE 184* 191* 282* - 218* 218* 164* CALCIUM 8.2* 8.3* 8.9 - 9.8 9.8 9.3 ALT - - - - 41 41 ALKPHOS - - - - 351* 365* AST - - - - 71* 59* EGFR 52* 48* 45* - 40* 40* 40* - = values in this interval not displayed. Recent Labs Component Name 05/17/25 0733 05/17/2531005/16/25 2139 PHOS 2.0* 3.1 3.6 Recent Labs Component Name 05/17/25 0311 05/16/25 2139 05/16/25 1750 MAGNESIUM 1.9 2.0 2.0 Recent Labs Component Name 05/17/25 0311 05/15/25 2257 05/15/25 1454 HGB 12.9 13.7 14.6 HCT 37.7 39.6 43.4 Recent Labs Component Name 05/16/25 0632 HGBA1C 7.2* Patient Vitals for the past 30 hrs: Glucose Bedside (mg/dL) 05/17/25 0733 175 mg/dL 05/17/25 0521 211 mg/dL 05/17/25 0009 260 mg/dL 05/16/25 1600 229 mg/dL 05/16/25 0901 (!) 44 mg/dL 05/16/25 0600 (!) 66 mg/dL 05/16/25 0457 83 mg/dL 05/16/25 0400 179 mg/dL MEDICATIONS FOR CURRENT ENCOUNTER: SCHEDULED MEDICATIONS: 0.9% NaCl injection 3 mL, Intracatheter, q8h artificial tears ophthalmic ointment, Each Eye, q8h bumetanide (Bumex) injection 4 mg, Intravenous, TID busPIRone (Buspar) tablet 10 mg, Enteral Tube, BID chlorhexidine (Peridex) 0.12 % oral solution 15 mL, Mouth/Throat, BID insulin aspart (NovoLOG) pen 0-12 Units, Subcutaneous, q6h insulin glargine (Lantus) pen 5 Units, Subcutaneous, AT BEDTIME iopamidol (Isovue 370) 76 % contrast, Intravenous, Contrast - Once magnesium sulfate 4 g in 100 mL bolus, Intravenous, Once pantoprazole (Protonix) injection 40 mg, Intravenous, QDAY potassium chloride 20 mEq in 100 mL SW bolus, Intravenous, Once [COMPLETED] hypertonic 3% NaCl bolus 100 mL, Intravenous, Once [COMPLETED] hypertonic 3% NaCl bolus 100 mL, Intravenous, Once [COMPLETED] LORazepam (Ativan) injection 1 mg, Intravenous, Once [Held by Provider] escitalopram (Lexapro) tablet 10 mg, Oral, QDAY [Held by Provider] metoprolol succinate XL 24hr (Toprol XL) tablet 100 mg, Oral, QDAY [Held by Provider] sodium zirconium cyclosilicate (Lokelma) packet 5 g, Oral, TID AC [Held by Provider] spironolactone (Aldactone) tablet 12.5 mg, Oral, QDAY [START ON 05/18/2025] cyanocobalamin (Vitamin B-12) tablet 500 mcg, Enteral Tube, QDAY [START ON 05/18/2025] levothyroxine (Synthroid) tablet 75 mcg, Enteral Tube, QAM [START ON 05/18/2025] rivaroxaban (Xarelto) tablet 20 mg, Enteral Tube, QPM [START ON 05/18/2025] vitamin D3 (Cholecalciferol) tablet 5,000 Units, Enteral Tube, QDAY CONTINUOUS MEDICATIONS: fentaNYL 2500 mcg/50mL infusion, Intravenous, Continuous norepinephrine (Levophed) 8 mg/250 ml NS infusion premix, Intravenous, Continuous propofol (Diprivan) 1000 mg in 100 mL infusion, Intravenous, Continuous PRN MEDICATIONS: Or Or 0.9% NaCl injection 1-10 mL, Intracatheter, PRN acetaminophen (Tylenol) tablet 500 mg, Oral, q6h PRN albuterol HFA (Proventil; Ventolin; Proair) 108 (90 Base) MCG/ACT inhaler 2 puff, Inhalation, q6h PRN dextrose IV 12.5 g, Intravenous, PRN dextrose IV 25 g, Intravenous, PRN fentaNYL (Sublimaze) bolus from bag 50 mcg, Intravenous, BOLUS FROM BAG PRN glucagon (Glucagen) injection 1 mg, Subcutaneous, PRN glucose (Diabetic Use) oral gel, Oral, PRN hydrOXYzine HCl (Atarax) tablet 25 mg, Oral, q4h PRN methocarbamol (Robaxin) tablet 750 mg, Oral, q6h PRN polyethylene glycol 3350 (Miralax) packet 17 g, Oral, QDAY PRN Edema RLE Edema: Mild pitting, slight indentation (05/16/252014) LLE Edema: Mild pitting, slight indentation (05/16/252014) Nutrition Diagnostic Statement: Inadequate oral intake related to:: swallowing difficulty (mechanical ventilation) as evidenced by:: need for parenteral or enteral intake to supplement oral intake Nutrition Diagnostic Statement Progress: New diagnostic statement established Nutrition Intervention: Enteral nutrition: Monitoring: PO intake, I/Os, BM, labs, meds, weight Evaluation: Nutrition Goal: Total intake will meet estimated nutrient needs Nutrition Goal Timeframe: Throughout stay Nutrition Goal Progress: New goal established RD to follow per clinical nutrition guidelines. Marni Yeager MS, RD/RDN, LD Ascom: 4533 [1] fentaNYL, 0-200 mcg/hr, Last Rate: 50 mcg/hr (05/17/25 06) norepinephrine, 0-0.4 mcg/kg/min, Last Rate: 0.02 mcg/kg/min (05/17/25 0933) propofol, 0-50 mcg/kg/min, Last Rate: 10 mcg/kg/min (05/17/25 06) * Nicolás Coats DO - 05/16/2025 8:20 PM CDTAssociated Order(s): IP CONSULT TO SUPERVISOR [employer] CRITICAL CARE CONSULT 05/16/2025 Admit Date: 05/15/2025 SUBJECTIVE: HPI: Loretta Penn is a 64 year old female with history of HFrEF (EF 25% 02/2025), severe TR, MSSATV endocarditis with AICD removal in 07/2024, Afib on Xarelto, intellectual disability due to TBI, HTN, IDDM, and hypothyroidism who presented to [facility] on 05/16/25 for generalized swelling and 9 lbs weight gain. She was admitted to the floor with cardiology consult for acute HFrEF exacerbation and started on IV lasix TID. Hospital course complicated by hyponatremia, hyperkalemia (s/p insulin/dextrose, [place]) and hypoglycemia. On 05/16, transferred to cardiology as primary service due to concerns for potential cardiogenic shock. Nephrology consulted for hyponatremia and recommended IV bumex 4 mgBID and 1 liter free water restriction. Due to persistent agitation and inability to comply with medical therapy, patient with transfer orders to the CCU. Critical care consulted for sedation recommendations. On my evaluation, patient is quite agitated. She is not re-directable. She intermittently hides underneath blanket. She states she does not want to be transferred to the ICU. Review of Systems: Unable to obtain as patient is agitated Past Medical History[1] Past Surgical History[2] Family History[3] Unable to obtain as patient is agitated Allergies[4] Medications[5] Social History Socioeconomic History Marital status: Spouse name: Not on file Number of children: Not on file Years of education: Not on file Highest education level: Not on file Occupational History Not on file Tobacco Use Smoking status: Never Smokeless tobacco: Never Vaping Use Vaping status: Never Used Substance and Sexual Activity Alcohol use: Never Drug use: Never Sexual activity: Not Currently Other Topics Concern Not on file Social History Narrative Not on file Social Drivers of Health Financial Resource Strain: Low Risk (05/15/2025) Overall Financial Resource Strain (CARDIA) Difficulty of Paying Living Expenses: Not hard at all Recent Concern: Financial Resource Strain - Medium Risk (02/25/2025) Received from [facility] Overall Financial Resource Strain (CARDIA) Difficulty of Paying Living Expenses: Somewhat hard Food Insecurity: No Food Insecurity (05/15/2025) Hunger Vital Sign Worried About Running Out of Food in the Last Year: Never true Ran Out of Food in the Last Year: Never true Transportation Needs: No Transportation Needs (05/15/2025) PRAPARE - Transportation Lack of Transportation (Medical): No Lack of Transportation (Non-Medical): No Stress: No Stress Concern Present (05/15/2025) [employer] - Occupational Stress Questionnaire Feeling of Stress : Only a little Housing Stability: Low Risk (05/15/2025) Housing Stability Vital Sign Unable to Pay for Housing in the Last Year: No Number of Times Moved in the Last Year: 0 Homeless in the Last Year: No Unable to obtain as patient is agitated OBJECTIVE: Current vital signs Blood pressure 103/80, pulse 74, temperature 97.6 ??F (36.4 ??C), temperature source Axillary, resp. rate 18, height 1.676 m (5' 6), weight 120.7 kg (266 lb), SpO2 100%. 24 hour BP and temperature range Temp (24hrs), Av.5 ??F (36.4 ??C), Min:97.3 ??F (36.3 ??C), Max:97.6 ??F (36.4 ??C) Input/Output 05/15 701 - 05/16 1900 In: 400 [P.O.:400] Out: 1580 [Urine:1580] Physical Exam General: Alert. Not cooperative. Agitated HEENT: NC/AT. EOMI. Neck: Supple. Symmetrical. Lungs: unable to assess as patient agitated Heart: unable to assess as patient agitated Abdomen: unable to assess as patient agitated Extremities: BLE pitting edema. Skin: ecchymosis in BUE MSK: No joint tenderness. Neuro: agitated, not re-directable Psych: Agitated. BMP: Recent Labs Component Name 05/16/25 17505/16/25 1047 05/16/25 0805/15/25225605/15/25 1606 GLUCOSE 182* 113* 66* 218* 218* 164* BUN 30* 29* 27* 30* 30* 31* NA 121* 123* 121* 122* 122* 122* CL 86* 87* 89* 90* 90* 91* CO2 21* 25 25 22 22 22 ANIONGAP 14 11 7 10 10 9 LFTs: Recent Labs Component Name 05/15/25225605/15/25 1606 05/15/25 1454 ALKPHOS 351* 365* - ALT 41 41 - AST 71* 59* - LIPASE - - 7* CBC: Recent Labs Component Name 05/15/25225605/15/25 1454 WBC 3.9* 3.9* HGB 13.7 14.6 HCT 39.6 43.4 MCV 96.1 97.7 Coagulation: Recent Labs Component Name 05/15/25 1454 PT 29.5* INR 2.9 ABG: Lab results smartLinks are not currently available MICRO: Microbiology Results (Displays last 21 days for this encounter ONLY) No results found for the last 504 hours. RADIOLOGY: IMAGING REVIEWED CT Chest Pe W Abd Pelvis W Cont Result Date: 05/15/2025 Impression: 1.No evidence of acute pulmonary embolism. There is a retained metallic wire within oneof the right inferior lobe pulmonary arteries, likely iatrogenic. 2.Cardiomegaly and a moderate-sized pericardial effusion. Reflux of contrast into the hepatic veins suggesting right heart dysfunction. 3.Interstitial pulmonary edema, small volume ascites and diffuse body wall edema suggesting hypervolemia. Preliminary findings were discussed with the patient's care provider, Dr Sil Cordero by Dr. Tom Dinh via telephone at 05/15/2025 8:24 PM with readback comprehension and verification. > Dictated by Tom Dinh DO, (development vice president). > Dictated by Instrument Technologist I, Ann-Marie Campa MD have personally reviewed and interpreted this examination/study. > Interpreting Provider: Ann-Marie Campa MD on 05/15/2025 10:20 PM XR CHEST 2VW Result Date: 05/15/2025 IMPRESSION: A linear wire-like density projects over the right perihilar region. Cardiomegaly. Likely enlarged pulmonary arteries. Mild interstitial edema. Trace pleural effusions. No pneumothorax. > Interpreting Provider: Felipe Munoz MD on 05/15/2025 3:03 PM ASSESSMENT: # Acute encephalopathy # Intellectual disability due to TBI # Acute HFrEF exacerbation # Severe MR and TR # Hypervolemic Hyponatremia # Hyperkalemia # History of MSSA endocarditis # AICD # T2DM # Obesity # Hypothyroidsm # Prolonged QTc RECOMMENDATIONS: - Recommend starting precedex drip, monitor for potential bradycardia - Avoid Haldol and Zyprexa due to prolonged QTc - Agree with IV diuresis and 1 liter fluid restriction for hypervolemic hyponatremia; would consider 3% hypertonic saline if sodium continue to decrease <120 - Rest of management per primary Nicolás Coats D.O. Business Unit Managerconsumer relations complaint clerk Division of Pulmonary, Critical Care, and Sleep Medicine [facility] Pager: [phone] [1] Past Medical History: Diagnosis Date Arrhythmia Cataracts, bilateral Depression Diabetes mellitus (HCC) Hypertension Overactive bladder [2] Past Surgical History: Procedure Laterality Date Appendectomy Cholecystectomy [3] No family history on file. [4] Allergies Allergen Reactions Sulfa Drugs Urticaria [5] Current Facility-Administered Medications Medication 0.9% NaCl injection 3 mL And 0.9% NaCl injection 1-10 mL acetaminophen (Tylenol) tablet 500 mg albuterol HFA (Proventil; Ventolin; Proair) 108 (90 Base) MCG/ACT inhaler 2 puff ascorbic acid (VITAMIN C) tablet 500 mg bumetanide (Bumex) injection 4 mg busPIRone (Buspar) tablet 10 mg [Held by Provider] cefadroxil (Duricef) capsule 1,000 mg cefepime (Maxipime) 2,000 mg in NaCl IV 0.9 % 50 mL IVPB cyanocobalamin (Vitamin B-12) tablet 500 mcg dextrose IV 12.5 g Or dextrose IV 25 g Or glucagon (Glucagen) injection 1 mg [Held by Provider] escitalopram (Lexapro) tablet 10 mg ferrous sulfate tablet 325 mg glucose (Diabetic Use) oral gel hydrOXYzine HCl (Atarax) tablet 25 mg [Held by Provider] insulin aspart (NovoLOG) pen 0-12 Units iopamidol (Isovue 370) 76 % contrast levothyroxine (Synthroid) tablet 75 mcg methocarbamol (Robaxin) tablet 750 mg [Held by Provider] metoprolol succinate XL 24hr (Toprol XL) tablet 100 mg pantoprazole EC (Protonix) tablet 40 mg polyethylene glycol 3350 (Miralax) packet 17 g rivaroxaban (Xarelto) tablet 20 mg sodium zirconium cyclosilicate (Lokelma) packet 5 g [Held by Provider] spironolactone (Aldactone) tablet 12.5 mg vitamin D3 (Cholecalciferol) tablet 5,000 Units * Ryan Moyer MD - 05/16/2025 5:57 PM CDT [facility] Department of Nephrology Consult Note Date of Admission: 05/15/2025 Length of Stay: 1 Date of Service: 05/16/2025 Consulting Service: MED 1 Team Reason for Consult: Hyponatremia HISTORY: Loretta Penn is a 64 year old female w/ PMH significant for T2DM, HTN ,Atrial Fib on Xarelto,, HFrEF (EF25%) , AIC defibrillator placement which has been removed 2/2 infection and on prophylactic antibiotics, Depression and on escitalopram who presents with worsening shortness of breath along with chest discomfort and B/L leg edema. Per chart review patient has been hospitalized in [facility] in March 2025 with similar complaints and for hyponatremia. On arrival in ED labs noted for WBC3.9, Hb 13.7, Na+ 122, K+ 6.1, BUN 31, Creatinine 1.48, Blood Glucose 164, serum osmolality 264 , ,Urine Na+ 77, Urine osmolality 343 Nephrology got consult for Hypernatremia this afternoon. Review of Systems: The 14-point ROS is negative unless otherwise stated in the above HPI. Past Medical History[1] Past Surgical History[2] Family History[3] Social History: Social History Socioeconomic History Marital status: Spouse name: Not on file Number of children: Not on file Years of education: Not on file Highest education level: Not on file Occupational History Not on file Tobacco Use Smoking status: Never Smokeless tobacco: Never Vaping Use Vaping status: Never Used Substance and Sexual Activity Alcohol use: Never Drug use: Never Sexual activity: Not Currently Other Topics Concern Not on file Social History Narrative Not on file Social Drivers of Health Financial Resource Strain: Low Risk (05/15/2025) Overall Financial Resource Strain (CARDIA) Difficulty of Paying Living Expenses: Not hard at all Recent Concern: Financial Resource Strain - Medium Risk (02/25/2025) Received from [facility] Overall Financial Resource Strain (CARDIA) Difficulty of Paying Living Expenses: Somewhat hard Food Insecurity: No Food Insecurity (05/15/2025) Hunger Vital Sign Worried About Running Out of Food in the Last Year: Never true Ran Out of Food in the Last Year: Never true Transportation Needs: No Transportation Needs (05/15/2025) PRAPARE - Transportation Lack of Transportation (Medical): No Lack of Transportation (Non-Medical): No Stress: No Stress Concern Present (05/15/2025) [employer] - Occupational Stress Questionnaire Feeling of Stress : Only a little Housing Stability: Low Risk (05/15/2025) Housing Stability Vital Sign Unable to Pay for Housing in the Last Year: No Number of Times Moved in the Last Year: 0 Homeless in the Last Year: No Allergies: Allergies[4] Home Medications: Medications Ordered Prior to Encounter[5] Hospital Medications: Medications[6] Medications[7] PRN Meds: Medications[8] Vitals: BP 110/98 (BP Location: Right arm, Patient Position: Lying) Pulse 83 Temp 97.3 ??F (36.3 ??C) (Axillary) Resp 18 Ht 1.676 m (5' 6) Wt 120.7 kg (266 lb) SpO2 98% Estimated body mass index is 42.93 kg/m?? as calculated from the following: Height as of this encounter: 1.676 m (5' 6). Weight as of this encounter: 120.7 kg (266 lb). Physical Exam - Patient is looking upset while on entering room so limited examination performed. - There is edema of l;ower extremities B/L 1+ - Chest is clear to auscultate on front. - Grossly moving all four extremities. Intake/Output Summary (Last 24 hours) at 05/16/2025 1758 Last data filed at 05/16/2025 1407 Gross per 24 hour Intake 280 ml Output 980 ml Net -700 ml LABS: CMP Recent Labs Component Name 05/16/25 1047 05/16/25 0827 05/16/25 0632 05/15/25 2257 BUN 29* 27* - 30* 30* CREATININE 1.39* 1.44* - 1.48* 1.48* NA 123* 121* - 122* 122* POTASSIUM 5.3* 5.3* 4.3 4.3 4.7* 6.1* 6.1* CO2 22 22 ANIONGAP 11 7 - 10 10 OSMOLALITY 263* 255* - 267* 267* No results for input(s): TSH in the last 71896 hours. ABG No results for input(s): PHART, XWT3OMA, PO2ART, PIX3DJW, BASEEXCESS in the last 09992 hours. Invalid input(s): SO2ABG, FOHBABG URINE Recent Labs Component Name 05/16/25 0017 UROBILINUA Normal Recent Labs Component Name 05/16/25 0017 CREATININEUR 23.02 No results for input(s): MICROALB in the last 91254 hours. Recent Labs Component Name 05/16/25 0017 SODIUMRAN 77 CREATININEUR 23.02 UUN 193 LFT Recent Labs Component Name 05/16/25 0827 05/15/25225605/15/25201905/15/25 1606 PROT - 6.9 - 7.0 ALB 2.9* 3.1* 3.1* - 3.1* ALKPHOS - 351* - 365* AST - 71* - 59* ALT - 41 - 41 TBILI - 7.2* 7.0* 7.7* DBILI - - 4.9* - IBILI - - 2.1 - Recent Labs Component Name 05/15/25 1454 LIPASE 7* COAGULATION Recent Labs Component Name 05/15/25 1454 PT 29.5* INR 2.9 CARDIAC MARKERS No results for input(s): CKTOTAL, CKMB, TROPONINI in the last 70305 hours. ANEMIA Recent Labs Component Name 05/15/25225605/15/25 1454 HGB 13.7 14.6 WBC 3.9* 3.9* PLTCOUNT 199 203 CKD-BMD Recent Labs Component Name 05/16/25 1047 05/16/25 0805/15/25225605/15/25 1606 CALCIUM 9.7 9.3 9.8 9.8 9.3 PHOS - 4.0 4.5 - ALB - 2.9* 3.1* 3.1* 3.1* No results for input(s): PTHINTACT, BDLS17LV in the last [address] Chest Pe W Abd Pelvis W Cont Result Date: 05/15/2025 Impression: 1.No evidence of acute pulmonary embolism. There is a retained metallic wire within oneof the right inferior lobe pulmonary arteries, likely iatrogenic. 2.Cardiomegaly and a moderate-sized pericardial effusion. Reflux of contrast into the hepatic veins suggesting right heart dysfunction. 3.Interstitial pulmonary edema, small volume ascites and diffuse body wall edema suggesting hypervolemia. Preliminary findings were discussed with the patient's care provider, Dr Sil Cordero by Dr. Tom Dinh via telephone at 05/15/2025 8:24 PM with readback comprehension and verification. > Dictated by Tom Dinh DO, (development vice president). > Dictated by Instrument Technologist I, Ann-Marie Campa MD have personally reviewed and interpreted this examination/study. > Interpreting Provider: Ann-Marie Campa MD on 05/15/2025 10:20 PM XR CHEST 2VW Result Date: 05/15/2025 IMPRESSION: A linear wire-like density projects over the right perihilar region. Cardiomegaly. Likely enlarged pulmonary arteries. Mild interstitial edema. Trace pleural effusions. No pneumothorax. > Interpreting Provider: Felipe Munoz MD on 05/15/2025 3:03 PM ASSESSMENT: Loretta Penn is a 64 year old female w/ PMH significant for 2DM, HTN ,Atrial Fib on Xarelto,, HFrEF (EF25%) , AIC defibrillator placement which has been removed 2/2 infection and on prophylactic antibiotics who presents with worsening of shortness of breath. PLAN: # Hyponatremia - Likely Hypervolemic Hypotonic Hyponatremia in setting of heart failure - Chronic Hyponatremia with baseline 130-132 from previous records - serum Na-- 123 mmol/L - Urine Sodium 77 - Urine Osmolality 343 - Serum Osmolality 264 # HTN # HFeEF (EF 25%) -Lasix 40 mg, Entresto 24-26 , Spironolactone 25 mg, Metoprolol XR 100 mg # A. Fib - on Xarelto, # T2DM # Depression - escitalopram Recommendations: -Nephrology rec free water restriction to 1 Liter per 24 hours. - Nephrology rec to start IV Bumex 4 mg BID and stop IV lasix - strict intake and output records - obtain repeat/serial sodium measurements Q6h - Daily Urine, serum Osmolality - Please reach out Nephrology if Na+ less than 120 Patient is seen and discussed with attending physician, Dr. Rowan. Ryan Acevedo MD Nephrology Fellow [1] Past Medical History: Diagnosis Date Arrhythmia Cataracts, bilateral Depression Diabetes mellitus (HCC) Hypertension Overactive bladder [2] Past Surgical History: Procedure Laterality Date Appendectomy Cholecystectomy [3] No family history on file. [4] Allergies Allergen Reactions Sulfa Drugs Urticaria [5] No current facility-administered medications on file prior to encounter. Current Outpatient Medications on File Prior to Encounter Medication Sig Dispense Refill acetaminophen (Tylenol) 500 MG tablet Take 1 (one) tablet by mouth every 6 hours as needed ACETAMINOPHEN-DM PO Take 30 mL by mouth every 4 hours as needed albuterol HFA (Proventil; Ventolin; Proair) 108 (90 Base) MCG/ACT inhaler Inhale 2 (two) puffs by mouth every 6 hours as needed for Shortness of Breath ascorbic acid (VITAMIN C) 500 MG tablet Take 1 (one) tablet by mouth once daily busPIRone (Buspar) 10 MG tablet Take 1 (one) tablet by mouth 2 times daily Carvedilol (COREG PO) (Patient not taking: Reported on 05/15/2025) cefadroxil (Duricef) 500 MG capsule Take 2 (two) capsules by mouth 2 times daily Cholecalciferol 125 MCG (5000 UT) Take 1 (one) tablet by mouth once daily Citalopram Hydrobromide (CELEXA PO) (Patient not taking: Reported on 05/15/2025) cyanocobalamin (Vitamin B-12) 500 MCG tablet Take 1 (one) tablet by mouth once daily docusate sodium (Colace) 100 MG capsule Take 1 (one) capsule by mouth 2 times daily escitalopram (Lexapro) 10 MG tablet Take 1 (one) tablet by mouth once daily Ferrous Sulfate (IRON PO) Take 1 tablet by mouth once daily ferrous sulfate EC 325 (65 Fe) MG tablet Take 1 (one) tablet by mouth once daily fluticasone propionate (Flonase) 50 MCG/ACT nasal spray [facility] 2 (two) sprays into each nostril 2 times daily furosemide (Lasix) 40 MG tablet Take 1 (one) tablet by mouth 2 times daily with morning and eveningmeal Gemtesa 75 MG tablet Take 1 (one) tablet by mouth once daily hydrocortisone (Hytone) 1 % cream Apply to affected area as needed (itching) hydrOXYzine HCl (Atarax) 25 MG tablet Take 1 (one) tablet by mouth every 4 hours as needed for Itching insulin aspart (NovoLOG) FlexPen Inject 15 (fifteen) Units subcutaneously 3 times daily,before breakfast/lunch/bedtime 15- 18 units before each meal insulin lispro (HumaLOG) 100 UNIT/ML vial Inject 18 (eighteen) Units subcutaneously 3 times daily before meals Family report 18 units Qam 18 units Qpm 10 units QHS Insulin NPH Isophane & Regular (HUMULIN 70/30 SC) (Patient not taking: Reported on 05/15/2025) levothyroxine (Synthroid) 75 MCG tablet Take 1 (one) tablet by mouth every morning lidocaine (Lidoderm) 4 % patch Apply 1 (one) patch to skin once daily as needed (pain) LISINOPRIL & DIET MANAGE PROD PO (Patient not taking: Reported on 05/15/2025) Magnesium Oxide -Mg Supplement 400 (240 Mg) MG Take 1 (one) tablet by mouth once daily METFORMIN & DIET MANAGE PROD PO (Patient not taking: Reported on 05/15/2025) metoprolol succinate XL 24hr (Toprol XL) 100 MG tablet Take 1 (one) tablet by mouth once daily nitrofurantoin monohyd macro crystals (MACROBID) 100 MG capsule Take 1 Cap by mouth 2 times daily with morning and evening meal (Patient not taking: Reported on 05/15/2025) 14 Cap 0 nortriptyline (Pamelor) 10 MG capsule Take 1 (one) capsule by mouth once daily omeprazole (PriLOSEC) 20 MG capsule Take 1 (one) capsule by mouth once daily OXYBUTYNIN CHLORIDE PO (Patient not taking: Reported on 05/15/2025) polyethylene glycol 3350 (Miralax) 17 g packet Take 17 (seventeen) g by mouth once daily as needed RANITIDINE & DIET MANAGE PROD PO (Patient not taking: Reported on 05/15/2025) spironolactone (Aldactone) 25 MG tablet Take 0.5 (one-half) tablet by mouth once daily TRAMADOL & DIETARY MANAGE PROD PO (Patient not taking: Reported on 05/15/2025) Xarelto 20 MG tablet Take 1 (one) tablet by mouth once daily [6] 0.9% NaCl 3 mL Intracatheter q8h ascorbic acid 500 mg Oral QDAY busPIRone 10 mg Oral BID cefadroxil 1,000 mg Oral BID cyanocobalamin 500 mcg Oral QDAY [Held by Provider] escitalopram 10 mg Oral QDAY ferrous sulfate 325 mg Oral QDAY furosemide 80 mg Intravenous TID [Held by Provider] insulin aspart 0-12 Units Subcutaneous TID WC iopamidol Intravenous Contrast - Once levothyroxine 75 mcg Oral QAM [Held by Provider] metoprolol succinate XL 24hr 100 mg Oral QDAY pantoprazole EC 40 mg Oral QDAY rivaroxaban 20 mg Oral QDAY sodium zirconium cyclosilicate 5 g Oral TID AC [Held by Provider] spironolactone 12.5 mg Oral QDAY vitamin D3 5,000 Units Oral QDAY [7] [8] SALINE LOCK, INSERT AND MAINTAIN AND 0.9% NaCl AND 0.9% NaCl acetaminophen albuterol HFA dextrose IV for hypoglycemia OR dextrose IV for hypoglycemia OR glucagon glucose (Diabetic Use) gel hydrOXYzine HCl methocarbamol polyethylene glycol 3350 Cosigned by Praneeth Navarrete MD at 05/17/2025 5:05 PM CDT Associated attestation - Praneeth Navarrete MD - 05/17/2025 5:05 PM CDT I have seen and examined the patient with house-staff on rounds on 05/17/2025 at 11:35 AM. I agree with the house-staff note with the additions/modificiations listed below. Ms. Pnen is a 64 year old female w/ PMH significant for T2DM, HTN, Atrial Fib, HFrEF (EF25%),AIC defibrillator removed 2/, and other comorbidities who presented for SOB and chest discomfort. Labs on arrival revealed Na 122, K+ 6.1, BUN 31, creatinine 1.48, glucose 164, serum osmolality 264,Urine Na+ 77, Urine osmolality 343. Nephrology was consulted for hyponatremia in the setting of heart failure. Switched IV furosemide to Bumex 4 mg BID. Urine output has improved significantly, 2600 ml last night and 3,605 ml so far today. Patient was intubated today. Not requiring pressor support as this time. Hyponatremia has improved, 122 to 124. Creatinine has also improved, from1.48 on 05/15/2025 to 1.18. Suggest continuing IV Bumex. May adjust the dose down to avoid hypotension. Goal MAP >65. Follow electrolyte status closely and correct as required. * Mike Ying, DO - 05/16/2025 3:22 PM CDTAssociated Order(s): IP CONSULT TO CARDIOLOGY [facility] Inpatient Cardiology Consultation : 1960 Admission: 05/15/2025 LOS: 1 Requesting physician: Adryan Crockett Reason for consult: HFrEF Assessment and plan: #HFrEF #Severe mitral and tricuspid regurgitation #Hyponatremia #LE edema #Elevated BNP 64F with Severe HFrEF (20-25%) and severe MR/TR presenting with HF exacerbation. While physical exam is equivocal based on BNP, Hyponatremia, and Echo findings (New moderate-severe RV dilation, functional valve abnormalities) the patient is severely volume overloaded and predisposed to progress into cardiogenic shock. She currently has warm extremities and stable blood pressures. Of note, patient was found to have clot in the MAULIK on 07/2024 CCTA. Recommendations: -Continue Lasix IV 80 TID -Continue Xarelto 20mg daily -Insert Stephens catheter for accurate I/O -Hold Metoprolol given marked systolic dysfunction -Nephrology consult for hyponatremia -Obtain RFP q6h, daily LFT -Trend Lactic acid - Continue telemetry, strict I/O's, - Maintain K >4.0 and Mag > 2.0 We will follow. These recommendations are not final until cosigned by attending physician. Subjective: Chief complaint: LE edema History of present illness: 64F with PMHx HFrEF (20-25%) with AICD removal 07/2024 due to ICD lead infection now on cefadroxil ppx, severe tricuspid and mitral regurgitation, Atrial fibrillation on Xarelto, TBI, T2DM who presented 05/15 due to LE edema. Patient was agitated and tearful on exam today limiting history taking. Per chart review, patient was recently discharged from [facility] with HF exacerbation (02/2025) with IV diuresis and was scheduled to follow up with [facility] cardiology valve team followup but there does not appear to be any record of this appointment. A comprehensive 12 point review of systems was performed and negative except as documented in HPI. Past Medical History[1] Past Surgical History[2] Family History[3] Social History[4] Allergies[5] Prior to Admission medications Taking? Last Dose Medication Sig Yes acetaminophen (Tylenol) 500 MG tablet Take 1 (one) tablet by mouth every 6 hours as needed Yes ACETAMINOPHEN-DM PO Take 30 mL by mouth every 4 hours as needed Yes albuterol HFA (Proventil; Ventolin; Proair) 108 (90 Base) MCG/ACT inhaler Inhale 2 (two) puffs by mouth every 6 hours as needed for Shortness of Breath Yes ascorbic acid (VITAMIN C) 500 MG tablet Take 1 (one) tablet by mouth once daily Yes busPIRone (Buspar) 10 MG tablet Take 1 (one) tablet by mouth 2 times daily Not Taking Carvedilol (COREG PO) Yes cefadroxil (Duricef) 500 MG capsule Take 2 (two) capsules by mouth 2 times daily Cholecalciferol 125 MCG (5000 UT) Take 1 (one) tablet by mouth once daily Not Taking Citalopram Hydrobromide (CELEXA PO) Yes cyanocobalamin (Vitamin B-12) 500 MCG tablet Take 1 (one) tablet by mouth once daily docusate sodium (Colace) 100 MG capsule Take 1 (one) capsule by mouth 2 times daily Yes escitalopram (Lexapro) 10 MG tablet Take 1 (one) tablet by mouth once daily Ferrous Sulfate (IRON PO) Take 1 tablet by mouth once daily ferrous sulfate EC 325 (65 Fe) MG tablet Take 1 (one) tablet by mouth once daily fluticasone propionate (Flonase) 50 MCG/ACT nasal spray [facility] 2 (two) sprays into each nostril 2 times daily Yes furosemide (Lasix) 40 MG tablet Take 1 (one) tablet by mouth 2 times daily with morning and evening meal Yes Gemtesa 75 MG tablet Take 1 (one) tablet by mouth once daily Yes hydrocortisone (Hytone) 1 % cream Apply to affected area as needed (itching) hydrOXYzine HCl (Atarax) 25 MG tablet Take 1 (one) tablet by mouth every 4 hours as needed for Itching Yes insulin aspart (NovoLOG) FlexPen Inject 15 (fifteen) Units subcutaneously 3 times daily,before breakfast/lunch/bedtime 15- 18 units before each meal Yes insulin lispro (HumaLOG) 100 UNIT/ML vial Inject 18 (eighteen) Units subcutaneously 3 times daily before meals Family report 18 units Qam 18 units Qpm 10 units QHS Not Taking Insulin NPH Isophane & Regular (HUMULIN 70/30 SC) Yes levothyroxine (Synthroid) 75 MCG tablet Take 1 (one) tablet by mouth every morning lidocaine (Lidoderm) 4 % patch Apply 1 (one) patch to skin once daily as needed (pain) Not Taking LISINOPRIL & DIET MANAGE PROD PO Yes Magnesium Oxide -Mg Supplement 400 (240 Mg) MG Take 1 (one) tablet by mouth once daily Not Taking METFORMIN & DIET MANAGE PROD PO Yes metoprolol succinate XL 24hr (Toprol XL) 100 MG tablet Take 1 (one) tablet by mouth once daily Not Taking nitrofurantoin monohyd macro crystals (MACROBID) 100 MG capsule Take 1 Cap by mouth 2 times daily with morning and evening meal Patient not taking: Reported on 05/15/2025 Yes nortriptyline (Pamelor) 10 MG capsule Take 1 (one) capsule by mouth once daily omeprazole (PriLOSEC) 20 MG capsule Take 1 (one) capsule by mouth once daily Not Taking OXYBUTYNIN CHLORIDE PO Yes polyethylene glycol 3350 (Miralax) 17 g packet Take 17 (seventeen) g by mouth once daily as needed Not Taking RANITIDINE & DIET MANAGE PROD PO Yes spironolactone (Aldactone) 25 MG tablet Take 0.5 (one-half) tablet by mouth once daily Not Taking TRAMADOL & DIETARY MANAGE PROD PO Xarelto 20 MG tablet Take 1 (one) tablet by mouth once daily Objective: Patient Vitals for the past 24 hrs: BP Temp Temp src Pulse Resp SpO2 Height Weight 05/16/25 1400 -- -- -- -- -- 98 % -- -- 05/16/25 0925 110/98 -- -- 83 18 -- -- -- 05/16/25 0800 -- -- -- -- -- 98 % -- -- 05/16/25 0400 -- -- -- -- -- -- -- 120.7 kg (266 lb) 05/16/25 0029 105/62 97.3 ??F (36.3 ??C) Axillary 87 18 98 % -- -- 05/15/25 2205 141/63 97.5 ??F (36.4 ??C) Axillary 93 17 99 % 1.676 m (5' 6) 120.3 kg (265 lb 4.8 oz) 05/15/25 1619 (!) 156/125 97.2 ??F (36.2 ??C) -- 103 17 99 % -- -- General: Patient is agitated and tearful Eyes: ENTM: Oropharynx clear, tongue and uvula midline Neck: Supple, full range of motion Lungs: Clear to auscultation bilaterally Heart: Tachycardic and regular rhythm, S1 normal, S2 physiologically split, no murmurs or gallops Abdomen: Soft, non-tender, non-distended, normal bowel sounds Extremities: 1+ edema, warm LE Skin: Warm, dry, well perfused Psych: Poor insight, tearful, agitated Neuro: Disoriented, no focal weakness Cardiology High Risk Variables HFrEF Were these present on admission? Yes [1] Past Medical History: Diagnosis Date Arrhythmia Cataracts, bilateral Depression Diabetes mellitus (HCC) Hypertension Overactive bladder [2] Past Surgical History: Procedure Laterality Date Appendectomy Cholecystectomy [3] No family history on file. [4] Social History Tobacco Use Smoking status: Never Smokeless tobacco: Never Vaping Use Vaping status: Never Used Substance Use Topics Alcohol use: Never Drug use: Never [5] Allergies Allergen Reactions Sulfa Drugs Urticaria Cosigned by Wolf De La Rosa MD at 05/17/2025 2:13 PM CDT Associated attestation - Wolf De La Rosa MD - 05/17/2025 2:13 PM CDT Attending Note: I have seen and examined the patient with the resident/fellow, personally reviewed pertinent cardiac data including the EKG and echo findings, and I agree with the findings and plan of care as documented by the resident/fellow, with the following additional comments and exceptions. 64F with Severe HFrEF (20-25%) and severe MR/TR presenting with HF exacerbation. Hx of MAULIK thrombus Markedly dCHF Hyponatremia Pt agitated and confused. Recommendations: -Continue Lasix IV 80 TID -Continue Xarelto 20mg daily -Insert Stephens catheter for accurate I/O -Hold Metoprolol given marked systolic dysfunction -Nephrology consult for hyponatremia -Obtain RFP q6h, daily LFT -Trend Lactic acid - Continue telemetry, strict I/O's, - Maintain K >4.0 and Mag > 2.0 Transfer patient to primary cardiology service. D/w Dr. Ordonez. Please see resident/fellow's note for details. Wolf De La Rosa MD documented in this encounter OR Notes * Brief Op Note - Bridgett Silverio MD - 05/20/2025 3:17 PM CDT [facility] BRIEF POST PROCEDURE AND SEDATION NOTE Loretta Penn is a 64 year old female born on 1960 who underwent CHANCE for evaluation of MAULIK and possible cardioversion for afib RVR Pre-Op Diagnosis: afib RVR Post-Op Diagnosis: thrombus and spontaneous echo contrast noted in the left atrial appendage, biatrial enlargement, negative bubble study for interatrial septal defect, mild MR, mod-sev TR, trileaflet aortic valve, minimal plaque in ascending, transverse and descending portions of the aorta. DCCV not attempted due to MAULIK thrombus Attending: Linda Lezama MD Fellow: Bridgett Silverio MD EBL: 0 cc Type of anesthesia: Moderate sedation Moderate sedation was administered by a nurse under the direct supervision of physicians performingthe procedure. 150 mcg IV fentanyl and 6 mg IV midazolam, was used for sedation. Procedure Start Time: 1430 Procedure Stop Time: 1515 Monitoring: Monitoring consisted of: heart rate, cardiac nurse, continuous pulse oximetry, continuous capnometry, frequent blood pressure checks, level of consciousness, IV access, constant attendance by RN until patient recovered and constant attendance until patient stable. Response: Vital signs stable, airway patent and O2 saturations greater than 92%. Patient Status Post Procedure: Hemodynamically and neurologically stable. Complications: none Bridgett Silverio MD Cardiovascular Diseases Fellow [facility] Cosigned by Linda Lezama MD at 05/22/2025 8:55 AM CDT documented in this encounter ED Notes * Ynes Cotton RN - 05/15/2025 9:22 PM CDT Report given to BROWN Shearer. * Ynes Cotton RN - 05/15/2025 7:59 PM CDT Patient adjusted into position of comfort. PureWick applied for management of incontinence during diuresis. * Cuong Hodge - 05/15/2025 7:12 PM CDT Loretta [place] [id number] [facility] EMERGENCY DEPARTMENT History Chief Complaint Patient presents with Swelling Foot BIBfriend c/o recent weight gain and swelling all over, particularly in her feet. Gained 9lbs in 2 days. Takes a water pill. Pt appears slightly jaundiced in triage. HPI Patient is a 64-year-old female with PMHx of heart failure (EF of 20%), tricuspid regurgitation, cardiac cirrhosis, DM, HTN, atrial fibrillation on Xarelto, presenting to the ED for worsening shortness of breath and lower extremity edema. Patient's family member is present and reports that for the p ast 4-5 days she has been having increased fluid in her legs, gaining about 1-2 lb a day. Starting yesterday she developed worsening shortness of breath, and now in the ED she is experiencing chest pain. Patient reports she had a defibrillator that was removed last year due to infection, still has wire in place so on prophylactic antibiotics. Patient's family also reports that she was hospitalized at [facility] in March of this year for similar sob symptoms and hyponatremia. Patient also reports feeling hot, but denies fever at home. Past Medical History: Diagnosis Date Arrhythmia, Afib Cataracts, bilateral Depression Diabetes mellitus Hypertension Overactive bladder Past Surgical History[1] Family History[2] Social History Socioeconomic History Marital status: Spouse name: Not on file Number of children: Not on file Years of education: Not on file Highest education level: Not on file Occupational History Not on file Tobacco Use Smoking status: Not on file Smokeless tobacco: Not on file Substance and Sexual Activity Alcohol use: Not on file Drug use: Not on file Sexual activity: Not on file Other Topics Concern Not on file Social History Narrative Not on file Social Drivers of Health Financial Resource Strain: Medium Risk (02/25/2025) Received from [facility] Overall Financial Resource Strain (CARDIA) Difficulty of Paying Living Expenses: Somewhat hard Food Insecurity: No Food Insecurity (02/25/2025) Received from [facility] Hunger Vital Sign Worried About Running Out of Food in the Last Year: Never true Ran Out of Food in the Last Year: Never true Recent Concern: Food Insecurity - Food Insecurity Present (11/29/2024) Received from [facility] Hunger Vital Sign Worried About Running Out of Food in the Last Year: Often true Ran Out of Food in the Last Year: Often true Transportation Needs: No Transportation Needs (02/25/2025) Received from [facility] PRAPARE - Transportation Lack of Transportation (Medical): No Lack of Transportation (Non-Medical): No Stress: Stress Concern Present (11/29/2024) Received from [facility] [employer] of Occupational Health - Occupational Stress Questionnaire Feeling of Stress : To some extent Housing Stability: Low Risk (02/25/2025) Received from [facility] Housing Stability Vital Sign Unable to Pay for Housing in the Last Year: No Number of Times Moved in the Last Year: 0 Homeless in the Last Year: No Physical Exam BP 141/63 (BP Location: Right arm, Patient Position: Lying) Pulse 93 Temp 97.5 ??F (36.4 ??C) (Axillary) Resp 17 Ht 1.676 m (5' 6) Wt 120.3 kg (265 lb 4.8 oz) SpO2 99% BMI 42.82 kg/m?? Physical Exam Constitutional: General: She is not in acute distress. Appearance: She is obese. HENT: Head: Normocephalic and atraumatic. Nose: No rhinorrhea. Mouth/Throat: Mouth: Mucous membranes are moist. Eyes: Extraocular Movements: Extraocular movements intact. Conjunctiva/sclera: Conjunctivae normal. Pupils: Pupils are equal, round, and reactive to light. Cardiovascular: Rate and Rhythm: Tachycardia present. Rhythm irregular. Pulmonary: Effort: Pulmonary effort is normal. Breath sounds: Normal breath sounds. No wheezing or rales. Abdominal: General: There is distension. Palpations: Abdomen is soft. Musculoskeletal: Comments: 2+ pitting edema in the bilateral lower extremities Skin: General: Skin is warm and dry. Neurological: General: No focal deficit present. Mental Status: She is alert. Mental status is at baseline. Cranial Nerves: No cranial nerve deficit. Psychiatric: Mood and Affect: Mood normal. Behavior: Behavior normal. Medications Medications[3] Hospital Encounter on 05/15/25 CBC W AUTO DIFFERENTIAL Result Value Ref Range WBC 3.9 (L) 4.0 - 10.7 x10E9/L RBC Count 4.44 3.90 - 5.20 x10E12/L Hemoglobin 14.6 11.9 - 15.8 g/dL Hematocrit 43.4 34.8 - 46.1 % MCV 97.7 80.0 - 98.0 fL MCH 32.9 26.7 - 33.6 pg MCHC 33.6 31.7 - 36.3 g/dL RDW-CV 18.5 (H) 11.3 - 14.8 % Platelet Count 203 150 - 420 x10E9/L MPV 10.0 7.8 - 11.4 fL Neutrophil % 71.5 41.0 - 74.0 % Lymphocyte % 16.5 (L) 17.0 - 47.0 % Monocyte % 9.9 3.0 - 11.0 % Eosinophil % 0.8 0.0 - 7.0 % Basophil % 1.0 0.0 - 1.6 % Immature Granulocytes % 0.3 0.0 - 1.0 % Neutrophil Absolute 2.82 1.60 - 7.50 x10E9/L Lymphocyte Absolute 0.65 (L) 1.00 - 4.40 x10E9/L Monocyte Absolute 0.39 0.15 - 1.00 x10E9/L Eosinophil Absolute 0.03 0.00 - 0.60 x10E9/L Basophil Absolute 0.04 0.00 - 0.13 x10E9/L COMPREHENSIVE METABOLIC PANEL Result Value Ref Range BUN 31 (H) 7 - 26 mg/dL Creatinine 1.48 (H) 0.56 - 0.96 mg/dL Sodium 122 (LL) 136 - 145 mmol/L Potassium 6.1 (HH) 3.5 - 4.5 mmol/L Chloride 91 (L) 98 - 107 mmol/L CO2 22 22 - 29 mmol/L Glucose 164 (H) 70 - 99 mg/dL Calcium 9.3 8.4 - 10.2 mg/dL Protein Total 7.0 6.0 - 8.3 g/dL Albumin 3.1 (L) 3.4 - 5.0 g/dL Bilirubin Total 7.7 (H) 0.2 - 1.2 mg/dL Alkaline Phosphatase 365 (H) 40 - 150 U/L ALT 41 5 - 55 U/L AST 59 (H) 5 - 34 U/L Anion Gap 9 6 - 16 BUN/Creatinine Ratio 21 7 - 23 Osmolality Calculated 264 (L) 275 - 295 mOsm/kg Albumin/Globulin Ratio 0.8 (L) 1.1 - 2.3 eGFR by CKD-EPI 40 (L) >=90 mL/min/1.73 m2 TROPONIN-I HIGH SENSITIVE BASELINE + 1HR Result Value Ref Range Troponin I High Sensitive 24 (H) <=14 ng/L LIPASE BLOOD Result Value Ref Range Lipase 7 (L) 8 - 78 U/L MAGNESIUM BLOOD Result Value Ref Range Magnesium 2.2 1.6 - 2.6 mg/dL PT-INR Result Value Ref Range PT 29.5 (H) 12.1 - 14.8 Seconds INR 2.9 See Comment B-TYPE NATRIURETIC PEPTIDE Result Value Ref Range BNP 2,209 (H) <100 pg/mL TROPONIN-I HIGH SENSITIVE REFLEX 1HOUR Result Value Ref Range Troponin I High Sensitive 23 (H) <=14 ng/L Delta Troponin I HS <0 <6 ng/L BILIRUBIN TOTAL+DIRECT BLOOD PANEL Result Value Ref Range Bilirubin Total 7.0 (H) 0.2 - 1.2 mg/dL Bilirubin Conjugated 4.9 (H) 0.1 - 0.5 mg/dL Bilirubin Unconjugated 2.1 Unconjugated Bilirubin is a calculated value: Reference ranges have not been established. mg/dL GLUCOSE - POINT OF CARE Result Value Ref Range Glucose WB/POC 225 (H) 70 - 99 mg/dL Specimen Type Arterial/Capillary CT Chest Pe W Abd Pelvis W Cont Final Result PROCEDURE: CT CHEST PE W ABD PELVIS W CONT, DATE/TIME OF EXAM: 05/15/2025 7:52 PM, LOCATION [facility] INDICATION: R06.02: Shortness of breath Ordering Provider Reason For Exam: r/o PE, liver issue CONTRAST: IOPAMIDOL 76 % IV SOLN:100 mL TECHNIQUE: CT of the chest was performed following the uneventful administration of 75 mL of Isovue 370 intravenous contrast according to a pulmonary embolism protocol. CT of the abdomen and pelvis was also performed during the portal venous phase according to standard protocol. Multiplanar reconstructions were created. COMPARISON: None. Findings: Chest: Study Quality: This examination for the diagnosis of pulmonary embolism is adequate. Pulmonary Arteries: No evidence of acute pulmonary embolism. There is a metallic density linear serpiginous foreign body within one of the right inferior lobe pulmonary arteries, most likely an iatrogenic retained wire. Thoracic Vasculature: Otherwise no significant vascular abnormality is present. Lower Neck and Axillae: Normal. Lungs: Mild bilateral dependent atelectasis is present. No suspicious pulmonary nodules are identified. No pleural fluid or pneumothorax is present. Heart and Pericardium: Cardiomegaly with small volume pericardial fluid. Mediastinum and Maya: No enlarged lymph nodes are present. Other findings: None. Abdomen/pelvis: Liver: Normal. Gallbladder and Bile Ducts: The gallbladder is absent. Spleen: Normal. Pancreas: Normal. Adrenals: Normal. Kidneys: No hydronephrosis or nephrolithiasis. Gastrointestinal: The stomach and visualized loops of small bowel are unremarkable. Mild colonic diverticulosis without evidence of diverticulitis is seen. Normal appendix. Mesentery/Peritoneum/Retroperitoneum: Small volume ascites. No intraperitoneal free air. Bladder: Normal. Reproductive Organs: The uterus is normal. Abdominal Vasculature: Atherosclerotic calcification of the aorta and its branch vessels. Mild narrowing of the celiac axis near its origin, possibly related to phase of inspiration. Bones: Bone windows demonstrate no suspicious lytic or blastic lesions. The visible osseous structures are intact. Degenerative changes are seen in the spine. Soft tissues: Diffuse body wall edema. Impression: 1.No evidence of acute pulmonary embolism. There is a retained metallic wire within one of the right inferior lobe pulmonary arteries, likely iatrogenic. 2.Cardiomegaly and a moderate-sized pericardial effusion. Reflux of contrast into the hepatic veins suggesting right heart dysfunction. 3.Interstitial pulmonary edema, small volume ascites and diffuse body wall edema suggesting hypervolemia. Preliminary findings were discussed with the patient's care provider, Dr Sil Cordero by Dr. Tom Dinh via telephone at 05/15/2025 8:24 PM with readback comprehension and verification. > Dictated by Tom Dinh DO, (development vice president). > Dictated by Instrument Technologist I, Ann-Marie Campa MD have personally reviewed and interpreted this examination/study. > Interpreting Provider: Ann-Marie Campa MD on 05/15/2025 10:20 PM XR CHEST 2VW Final Result PROCEDURE: XR CHEST 2VW DATE/TIME OF EXAM: 05/15/2025 2:41 PM CLINICAL INFORMATION: None relevant/not provided if blank. Indication: R06.02: Shortness of breath Additional History: COMPARISON: None. IMPRESSION: A linear wire-like density projects over the right perihilar region. Cardiomegaly. Likely enlarged pulmonary arteries. Mild interstitial edema. Trace pleural effusions. No pneumothorax. > Interpreting Provider: Felipe Munoz MD on 05/15/2025 3:03 PM ED Course ED Course as of 05/15/252236May 15, [id number] XR CHEST 2VW A linear wire-like density projects over the right perihilar region. Cardiomegaly. Likely enlarged pulmonary arteries. Mild interstitial edema. Trace pleural effusions. No pneumothorax [AD] 193 After discussion with Medicine, the patient will be admitted to their service for further management of CHF exacerbation and hyponatremia. Admitting provider is Dr. Gonzalez. - I have reviewed the diagnostic findings with the patient and they have had an opportunity to ask me any questions they have about care, diagnosis, and reason for admission. The patient states understanding and agrees to admission. [AD] ED Course User Index [AD] Sunitha Messer Clinical Impressions as of 05/15/252236 Shortness of breath Hyperkalemia Acute on chronic congestive heart failure, unspecified heart failure type (HCC) Hyponatremia Azotemia Elevated troponin Transaminitis Hyperbilirubinemia Elevated alkaline phosphatase level Chest pain, unspecified type Obesity with serious comorbidity, unspecified class, unspecified obesity type Medical Decision Making Patient is a 64-year-old female with PMHx of heart failure (EF of 20%), tricuspid regurgitation, cardiac cirrhosis, DM, HTN, afib on Xarelto, presenting to the ED for worsening shortness of breath and lower extremity edema. On arrival, patient's vitals are significant for hypertension at 156/125, ta chycardia at 103, otherwise stable. On exam patient has 2+ pitting edema bilaterally in the lower extremities, otherwise breathing comfortably on room air. Differential diagnosis includes but is not limited to: heart failure exacerbation, pneumonia, PE, AK, hyponatremia Plan - CBC, CMP, BNP, Troponin - EKG, chest x-ray, CTPE with abd CBC wnl, CMP significant for hyponatremia at 122, hyperkalemia at 6.1, elevated alk-phos at 365, bilirubin of 7.7, AST of 59, BUN of 31 and creatinine of 1.5. For the hyperkalemia, will give Ca gluconate, albuterol nebulizer. Patient is hyponatremic but is at her baseline mental status, A&O x3.80 mg Lasix IV given for diuresis. On re-examination, patient has a headache, p.o. Tylenol 650 mg given. At time of admission, CT pending. Patient admitted to medicine for acute on chronic heart failure exacerbation, hyperkalemia, hyponatremia. Orders Placed This Encounter XR CHEST 2VW CT Chest Pe W Abd Pelvis W Cont CBC W AUTO DIFFERENTIAL COMPREHENSIVE METABOLIC PANEL TROPONIN-I HIGH SENSITIVE BASELINE + 1HR LIPASE BLOOD MAGNESIUM BLOOD PT-INR B-TYPE NATRIURETIC PEPTIDE URINALYSIS W/MICROSCOPIC REFLEX TO CULTURE TROPONIN-I HIGH SENSITIVE REFLEX 1HOUR BILIRUBIN TOTAL+DIRECT BLOOD PANEL RENAL FUNCTION PANEL MAGNESIUM BLOOD MAGNESIUM BLOOD RENAL FUNCTION PANEL CBC W AUTO DIFFERENTIAL COMPREHENSIVE METABOLIC PANEL EKG 12-LEAD EKG 12-Lead AND Linked Order Group 0.9% NaCl injection 3 mL 0.9% NaCl injection 1-10 mL ondansetron (Zofran) injection 4 mg calcium gluconate 10 % injection 1 g AND Linked Order Group dextrose IV 25 g insulin regular human 1 unit/mL injection dextrose 10 % IV bolus glucose (Diabetic Use) oral gel OR Linked Order Group dextrose IV 12.5 g dextrose IV 25 g glucagon (Glucagen) injection 1 mg albuterol (Proventil;Ventolin) (5 MG/ML) 0.5% nebulizer solution 15 mg DISCONTD: patiromer (Veltassa) packet 16.8 g furosemide (Lasix) injection 80 mg iopamidol (Isovue 370) 76 % contrast acetaminophen (Tylenol) tablet 650 mg sodium zirconium cyclosilicate (Lokelma) packet 5 g levothyroxine (Synthroid) tablet 75 mcg rivaroxaban (Xarelto) tablet 20 mg spironolactone (Aldactone) tablet 12.5 mg cefadroxil (Duricef) capsule 1,000 mg vitamin D3 (Cholecalciferol) 25 MCG (1000 UNITS) tablet 5,000 Units cyanocobalamin (Vitamin B-12) tablet 500 mcg ascorbic acid (VITAMIN C) tablet 500 mg busPIRone (Buspar) tablet 10 mg albuterol HFA (Proventil; Ventolin; Proair) 108 (90 Base) MCG/ACT inhaler 2 puff acetaminophen (Tylenol) tablet 500 mg hydrOXYzine HCl (Atarax) tablet 25 mg ferrous sulfate tablet 325 mg pantoprazole EC (Protonix) tablet 40 mg polyethylene glycol 3350 (Miralax) packet 17 g metoprolol succinate XL 24hr (Toprol XL) tablet 100 mg escitalopram (Lexapro) tablet 10 mg [1] Past Surgical History: Procedure Laterality Date Appendectomy Cholecystectomy [2] No family history on file. [3] No current outpatient medications on file. Cosigned by Juno Hernandez MD at 05/15/2025 10:50 PM CDT Associated attestation - Juno Hernandez MD - 05/15/2025 10:50 PM CDT Emergency Medicine Attending Note Medical Student Attestation Note I have personally seen, examined and been fully involved in the management of this patient with themedical student. This note is for educational purposes only and should not be used for patient care. * Julia Cowart Graduate Nurse - 05/15/2025 6:34 PM CDT Seizure pads requested at this time from jeanette * Juno Hernandez MD - 05/15/2025 6:26 PM CDT Emergency Medicine Attending Note Interval History : Chief Complaint Patient presents with Swelling Foot BIBfriend c/o recent weight gain and swelling all over, particularly in her feet. Gained 9lbs in 2 days. Takes a water pill. Pt appears slightly jaundiced in triage. Loretta Penn is a 64 year old female with a PMHx including DM, HTN, bilateral cataracts, appendectomy, cholecystectomy, severe tricuspid regurgitation s/p defibrillator placement which has been removed 2/2 infection and pt is now on prophylactic abx presenting to the ED c/o increasing SOB since yesterday and BLE edema with associated weight gain over the past 4-5 days (1-2 lbs per day). Pt also c/o chest pain that onset within the past hour. Pt notes subjective fevers and decreased appetite. Family reports irregular heart rhythm yesterday per nurse. Per family, pt was started on 80 mgFurosamide 3 weeks ago. Friend reports pt has an allergy to sulfa drugs. Past Medical History[1] Past Surgical History[2] Social History Socioeconomic History Marital status: Spouse name: Not on file Number of children: Not on file Years of education: Not on file Highest education level: Not on file Occupational History Not on file Tobacco Use Smoking status: Not on file Smokeless tobacco: Not on file Substance and Sexual Activity Alcohol use: Not on file Drug use: Not on file Sexual activity: Not on file Other Topics Concern Not on file Social History Narrative Not on file Social Drivers of Health Financial Resource Strain: Medium Risk (02/25/2025) Received from [facility] Overall Financial Resource Strain (CARDIA) Difficulty of Paying Living Expenses: Somewhat hard Food Insecurity: No Food Insecurity (02/25/2025) Received from [facility] Hunger Vital Sign Worried About Running Out of Food in the Last Year: Never true Ran Out of Food in the Last Year: Never true Recent Concern: Food Insecurity - Food Insecurity Present (11/29/2024) Received from [facility] ([place], [place]) Hunger Vital Sign Worried About Running Out of Food in the Last Year: Often true Ran Out of Food in the Last Year: Often true Transportation Needs: No Transportation Needs (02/25/2025) Received from [facility] PRAPARE - Transportation Lack of Transportation (Medical): No Lack of Transportation (Non-Medical): No Stress: Stress Concern Present (11/29/2024) Received from [facility] [employer] [facility] Occup[facility] - Occupational Stress Questionnaire Feeling of Stress : To some extent Housing Stability: Low Risk (02/25/2025) Received from [facility] Housing Stability Vital Sign Unable to Pay for Housing in the Last Year: No Number of Times Moved in the Last Year: 0 Homeless in the Last Year: No Allergies[3] Review of Systems: (+) positive Review of Systems Constitutional: Positive for fever. Negative for chills and diaphoresis. + Weight gain and decreased appetite HENT: Negative for congestion and nosebleeds. Eyes: Negative for photophobia and pain. Respiratory: Positive for shortness of breath. Negative for cough, hemoptysis, sputum production, wheezing and stridor. Cardiovascular: Positive for chest pain and leg swelling. Negative for palpitations and orthopnea. Gastrointestinal: Negative for abdominal pain, constipation, diarrhea, nausea and vomiting. Genitourinary: Negative for dysuria and frequency. Musculoskeletal: Negative for back pain and myalgias. Skin: Negative for rash. Neurological: Negative for dizziness, sensory change, focal weakness, loss of consciousness, weakness and headaches. Physical Exam Vitals: 05/15/25 1356 05/15/25 1417 05/15/25 1619 BP: (!) 157/144 115/82 (!) 156/125 Pulse: 101 103 Resp: 19 17 Temp: 97 ??F (36.1 ??C) 97.2 ??F (36.2 ??C) SpO2: 99% 99% Physical Exam Constitutional: General: She is in acute distress. Appearance: Normal appearance. She is morbidly obese. She is not ill-appearing, toxic-appearing or diaphoretic. Comments: Appears uncomfortable in bed, elderly female. VSS on the monitor HENT: Head: Normocephalic and atraumatic. Nose: Nose normal. Mouth/Throat: Mouth: Mucous membranes are moist. Pharynx: Oropharynx is clear. Comments: Oral mucosa pink, uvula midline Eyes: Pupils: Pupils are equal, round, and reactive to light. Cardiovascular: Rate and Rhythm: Normal rate. Pulses: Normal pulses. Comments: S1 S2, no S3 or S4 gallops or rubs, BLE edema with venostasis changes of RLE Pulmonary: Effort: Pulmonary effort is normal. Breath sounds: Rhonchi present. Comments: Mild rhonchi bilaterally, more pronounced in the lower lobes Abdominal: General: Abdomen is flat. There is no distension. Palpations: Abdomen is soft. Tenderness: There is no abdominal tenderness. There is no guarding. Musculoskeletal: General: No tenderness. Normal range of motion. Cervical back: Normal range of motion and neck supple. Right lower le+ Pitting Edema present. Left lower le+ Pitting Edema present. Skin: General: Skin is warm and dry. Coloration: Skin is not jaundiced. Neurological: General: No focal deficit present. Mental Status: She is alert and oriented to person, place, and time. Mental status is at baseline. Psychiatric: Mood and Affect: Mood normal. Behavior: Behavior normal. Medical Decision Makin64 y/o female presents to the ED for worsening SOB and leg swelling with associated weight gain. Problem List: 1. SOB 2. Chest pain 3. BLE edema - Ddx: CHF exacerbation vs PNA vs pneumothorax vs electrolyte abnormality vs atypical ACS vs DKA vspancreatitis vs other - PLAN: EKG, labwork, CT imaging, symptom control see below for further orders/plan. Orders Placed This Encounter XR CHEST 2VW CT Chest Pe W Abd Pelvis W Cont CBC W AUTO DIFFERENTIAL COMPREHENSIVE METABOLIC PANEL TROPONIN-I HIGH SENSITIVE BASELINE + 1HR LIPASE BLOOD MAGNESIUM BLOOD PT-INR B-TYPE NATRIURETIC PEPTIDE URINALYSIS W/MICROSCOPIC REFLEX TO CULTURE TROPONIN-I HIGH SENSITIVE REFLEX 1HOUR BILIRUBIN TOTAL+DIRECT BLOOD PANEL EKG 12-LEAD EKG 12-Lead AND Linked Order Group 0.9% NaCl injection 3 mL 0.9% NaCl injection 1-10 mL ondansetron (Zofran) injection 4 mg calcium gluconate 10 % injection 1 g AND Linked Order Group dextrose IV 25 g insulin regular human 1 unit/mL injection dextrose 10 % IV bolus glucose (Diabetic Use) oral gel OR Linked Order Group dextrose IV 12.5 g dextrose IV 25 g glucagon (Glucagen) injection 1 mg albuterol (Proventil;Ventolin) (5 MG/ML) 0.5% nebulizer solution 15 mg patiromer (Veltassa) packet 16.8 g furosemide (Lasix) injection 80 mg iopamidol (Isovue 370) 76 % contrast acetaminophen (Tylenol) tablet 650 mg Data Review: (All Labs/Imaging/ECG, other diagnostics independently interpreted by me.) - MONITORING: The patient's Permit Coordinator Rhythm was interpreted by me. The engine monitor showed Afib. This is interpreted as abnormal. The patient's Oxygen Saturation Monitor was interpreted by me. The reading was 99%. The patient wason RA at the time of the reading. This is interpreted as normal. - ECG: Interpreted by me: Date: 05/15/2025 Time: 1842 R&R: Afib with a ventricular rate of 90 bpm Additional findings: R axis deviation, QTc of 526 ms Ectopy: no - LABS: Labs Reviewed CBC W AUTO DIFFERENTIAL - Abnormal; Notable for the following components: Result Value WBC 3.9 (*) RDW-CV 18.5 (*) Lymphocyte % 16.5 (*) Lymphocyte Absolute 0.65 (*) All other components within normal limits COMPREHENSIVE METABOLIC PANEL - Abnormal; Notable for the following components: BUN 31 (*) Creatinine 1.48 (*) Sodium 122 (*) Potassium 6.1 (*) Chloride 91 (*) Glucose 164 (*) Albumin 3.1 (*) Bilirubin Total 7.7 (*) Alkaline Phosphatase 365 (*) AST 59 (*) Osmolality Calculated 264 (*) Albumin/Globulin Ratio 0.8 (*) eGFR by CKD-EPI 40 (*) All other components within normal limits TROPONIN-I HIGH SENSITIVE BASELINE + 1HR - Abnormal; Notable for the following components: Troponin I High Sensitive 24 (*) All other components within normal limits LIPASE BLOOD - Abnormal; Notable for the following components: Lipase 7 (*) All other components within normal limits Narrative: Lipase results from the [employer] analyzer may not be comparable with other methodologies. PT-INR - Abnormal; Notable for the following components: PT 29.5 (*) All other components within normal limits B-TYPE NATRIURETIC PEPTIDE - Abnormal; Notable for the following components: BNP 2,209 (*) All other components within normal limits TROPONIN-I HIGH SENSITIVE REFLEX 1HOUR - Abnormal; Notable for the following components: Troponin I High Sensitive 23 (*) All other components within normal limits BILIRUBIN TOTAL+DIRECT BLOOD PANEL - Abnormal; Notable for the following components: Bilirubin Total 7.0 (*) Bilirubin Conjugated 4.9 (*) All other components within normal limits GLUCOSE - POINT OF CARE - Abnormal; Notable for the following components: Glucose WB/POC 225 (*) All other components within normal limits MAGNESIUM BLOOD - Normal URINALYSIS W/MICROSCOPIC REFLEX TO CULTURE - IMAGING: XR CHEST 2VW Final Result PROCEDURE: XR CHEST 2VW DATE/TIME OF EXAM: 05/15/2025 2:41 PM CLINICAL INFORMATION: None relevant/not provided if blank. Indication: R06.02: Shortness of breath Additional History: COMPARISON: None. IMPRESSION: A linear wire-like density projects over the right perihilar region. Cardiomegaly. Likely enlarged pulmonary arteries. Mild interstitial edema. Trace pleural effusions. No pneumothorax. > Interpreting Provider: Felipe Munoz MD on 05/15/2025 3:[address] Chest Pe W Abd Pelvis W Cont (Results Pending) XR CHEST 2VW Result Date: 05/15/2025 IMPRESSION: A linear wire-like density projects over the right perihilar region. Cardiomegaly. Likely enlarged pulmonary arteries. Mild interstitial edema. Trace pleural effusions. No pneumothorax. > Interpreting Provider: Felipe Munoz MD on 05/15/2025 3:03 PM - MEDS: Medications 0.9% NaCl injection 3 mL ( Intracatheter Canceled Entry 05/15/251911) And 0.9% NaCl injection 1-10 mL (has no administration in time range) dextrose IV 25 g (25 g Intravenous $ Given 05/15/251854) And insulin regular human 1 unit/mL injection (5 Units Intravenous $ Given 05/15/251903) And dextrose 10 % IV bolus (250 mL Intravenous $ New Bag/Syringe 05/15/251919) glucose (Diabetic Use) oral gel (has no administration in time range) dextrose IV 12.5 g (has no administration in time range) Or dextrose IV 25 g (has no administration in time range) Or glucagon (Glucagen) injection 1 mg (has no administration in time range) patiromer (Veltassa) packet 16.8 g (16.8 g Oral $ Given 05/15/251901) iopamidol (Isovue 370) 76 % contrast (100 mL Intravenous $ Given - Contrast 05/15/251928) ondansetron (Zofran) injection 4 mg (4 mg Intravenous $ Given 05/15/251452) calcium gluconate 10 % injection 1 g (1 g Intravenous $ Given 05/15/251909) albuterol (Proventil;Ventolin) (5 MG/ML) 0.5% nebulizer solution 15 mg (15 mg Inhalation $ Admin. by Other Provider 05/15/251911) furosemide (Lasix) injection 80 mg (80 mg Intravenous $ Given 05/15/251954) acetaminophen (Tylenol) tablet 650 mg (650 mg Oral $ Given 05/15/252011) MDM: History is obtained from patient, friend, and is located in my HPI section. I also externally reviewed previous records that I had access to within [employer] and noted relevant statements in my HPI. Code status patient/POA: Full Code Relevant PE findings: normal PE Labs reviewed: hyponatremia, hyperkalemia Imaging reviewed: CXR shows interstitial edema ED COURSE ED Course as of 05/15/252125May 15, 20251913 XR CHEST 2VW A linear wire-like density projects over the right perihilar region. Cardiomegaly. Likely enlarged pulmonary arteries. Mild interstitial edema. Trace pleural effusions. No pneumothorax [AD] 193 After discussion with Medicine, the patient will be admitted to their service for further management of CHF exacerbation and hyponatremia. Admitting provider is Dr. Gonzalez. - I have reviewed the diagnostic findings with the patient and they have had an opportunity to ask me any questions they have about care, diagnosis, and reason for admission. The patient states understanding and agrees to admission. [AD] ED Course User Index [AD] Sunitha Messer Clinical Impressions as of 05/15/252125 Shortness of breath Hyperkalemia Acute on chronic congestive heart failure, unspecified heart failure type (HCC) Hyponatremia Azotemia Elevated troponin Transaminitis Hyperbilirubinemia Elevated alkaline phosphatase level Chest pain, unspecified type Obesity with serious comorbidity, unspecified class, unspecified obesity type On reevaluation: patient resting Labs/images reviewed at bedside with patient: yes Conclusion and Disposition: Acute problems: SOB Exacerbations of chronic problems: CHF Systemic issues: none Consultations in the ED: none Medication changes: per admitting team Follow up: per admitting team CRITICAL CARE IN THE ED: Patient is critically ill due to: 1. Shortness of breath 2. Hyperkalemia 3. Acute on chronic congestive heart failure, unspecified heart failure type (HCC) 4. Hyponatremia 5. Azotemia 6. Elevated troponin 7. Transaminitis 8. Hyperbilirubinemia 9. Elevated alkaline phosphatase level 10. Chest pain, unspecified type 11. Obesity with serious comorbidity, unspecified class, unspecified obesity type - Patient is at high risk for complications and morbidity or mortality. YES - Patient is critically ill with vital organ impairment or failure. YES - There is high probability of imminent or life threatening deterioration in the patient's condition. YES - Patient is unable or incompetent to participate in giving a history and/or making decisions and discussion is necessary for determining treatment decisions. YES Time involved in the performance of separately billable procedures, teaching, reviewing education material was not counted towards critical care time. Time with bedside care: 20 minutes Time in discussion with family: 5 minutes Time reviewing old medical records: 5 minutes Time reviewing labs/radiographs/ECG (and other diagnostics): 5 minutes Time with Extender services: 0 minutes Time completing documentation: 5 minutes I was directly involved in the patient's care for a Total Critical Care Time of: 40 minutes Orders and Medicine administered during this encounter: Orders Placed This Encounter XR CHEST 2VW CT Chest Pe W Abd Pelvis W Cont CBC W AUTO DIFFERENTIAL COMPREHENSIVE METABOLIC PANEL TROPONIN-I HIGH SENSITIVE BASELINE + 1HR LIPASE BLOOD MAGNESIUM BLOOD PT-INR B-TYPE NATRIURETIC PEPTIDE URINALYSIS W/MICROSCOPIC REFLEX TO CULTURE TROPONIN-I HIGH SENSITIVE REFLEX 1HOUR BILIRUBIN TOTAL+DIRECT BLOOD PANEL EKG 12-LEAD EKG 12-Lead AND Linked Order Group 0.9% NaCl injection 3 mL 0.9% NaCl injection 1-10 mL ondansetron (Zofran) injection 4 mg calcium gluconate 10 % injection 1 g AND Linked Order Group dextrose IV 25 g insulin regular human 1 unit/mL injection dextrose 10 % IV bolus glucose (Diabetic Use) oral gel OR Linked Order Group dextrose IV 12.5 g dextrose IV 25 g glucagon (Glucagen) injection 1 mg albuterol (Proventil;Ventolin) (5 MG/ML) 0.5% nebulizer solution 15 mg patiromer (Veltassa) packet 16.8 g furosemide (Lasix) injection 80 mg iopamidol (Isovue 370) 76 % contrast acetaminophen (Tylenol) tablet 650 mg Medications 0.9% NaCl injection 3 mL ( Intracatheter Canceled Entry 05/15/251911) And 0.9% NaCl injection 1-10 mL (has no administration in time range) dextrose IV 25 g (25 g Intravenous $ Given 05/15/251854) And insulin regular human 1 unit/mL injection (5 Units Intravenous $ Given 05/15/251903) And dextrose 10 % IV bolus (250 mL Intravenous $ New Bag/Syringe 05/15/251919) glucose (Diabetic Use) oral gel (has no administration in time range) dextrose IV 12.5 g (has no administration in time range) Or dextrose IV 25 g (has no administration in time range) Or glucagon (Glucagen) injection 1 mg (has no administration in time range) patiromer (Veltassa) packet 16.8 g (16.8 g Oral $ Given 05/15/251901) iopamidol (Isovue 370) 76 % contrast (100 mL Intravenous $ Given - Contrast 05/15/251928) ondansetron (Zofran) injection 4 mg (4 mg Intravenous $ Given 05/15/25 145) calcium gluconate 10 % injection 1 g (1 g Intravenous $ Given 05/15/251909) albuterol (Proventil;Ventolin) (5 MG/ML) 0.5% nebulizer solution 15 mg (15 mg Inhalation $ Admin. by Other Provider 05/15/251911) furosemide (Lasix) injection 80 mg (80 mg Intravenous $ Given 05/15/251954) acetaminophen (Tylenol) tablet 650 mg (650 mg Oral $ Given 05/15/252011) Clinical Impression: 1. Shortness of breath 2. Hyperkalemia 3. Acute on chronic congestive heart failure, unspecified heart failure type (HCC) 4. Hyponatremia 5. Azotemia 6. Elevated troponin 7. Transaminitis 8. Hyperbilirubinemia 9. Elevated alkaline phosphatase level 10. Chest pain, unspecified type 11. Obesity with serious comorbidity, unspecified class, unspecified obesity type Disposition: Admit to Medicine By signing my name below, I, Sunitha Messer, attest that this documentation has been prepared under the direction and in the presence of Dr. Hernandez. Signed: Yared Reddy. Date: 05/15/2025. I, Dr. Hernandez, personally performed the services described in this documentation. All medical record entries made by the scribe were at my direction and in my presence. I have reviewed the chart and agree that the record reflects my personal performance and is accurate and complete. Electronically signed: Dr. Hernandez [1] Past Medical History: Diagnosis Date Arrhythmia Cataracts, bilateral Depression Diabetes mellitus Hypertension Overactive bladder [2] Past Surgical History: Procedure Laterality Date Appendectomy Cholecystectomy [3] Allergies Allergen Reactions Sulfa Drugs Urticaria * Fei Anthony RN - 05/15/2025 6:17 PM CDT Bed: 13 Expected date: Expected time: Means of arrival: Comments: * Sweta Lundy PA-C - 05/15/2025 2:09 PM CDT Medical Screening Exam 05/15/2025 2:09 PM Provider contact with the patient Loretta Penn CC: Swelling Foot (BIBfriend c/o recent weight gain and swelling all over, particularly in her feet. Gained 9lbs in 2 days. Takes a water pill. Pt appears slightly jaundiced in triage. ) Chief complaint narrative was entered by triage nurse, not by provider Provider in Triage HPI: Loretta Penn is a 64 year old female PMH as noted below who presents with weakness and fatigue x 1 day. States dose of water pill was increased 2 weeks ago. States legs are swelling, she feels short of breath and she is gaining weight, 42 lbs over 1 month . Also endorses constipation, took miralax last night. Patient is a poor historian and is accompanied by a family member who is unsure of patient's entiremedical history, making history somewhat difficult to obtain. Limited Chart History: Past Medical History[1] Past Surgical History[2] Medications[3] Allergies[4] PCP: KYA Salinas (Above may be pending completion) Review of Systems: Primary System Noted in HPI. All other systems reviewed and are negative. Vital Signs reviewed in Triage BP (!) 157/144 (BP Location: Left arm, Patient Position: Sitting) Pulse 101 Temp 97 ??F (36.1 ??C) Resp 19 SpO2 99% Constitutional: vitals as above, obese, ill-appearing Head: Head normocephalic, atraumatic Eyes: conjunctiva clear ENT: no rhinorrhea Resp: respirations even and unlabored CV: tachycardic rate, regular rhythm Skin: warm, dry, mild juandice MSK: using wheelchair, moves all extremities, B/L lower extremity edema Complete physical exam is limited due to patient sitting in up right position in chair MDM: I have reviewed all lab and imaging resulted ordered during this visit and available at the time ofthis note. Triage notes and available nursing notes reviewed. Previous medical record reviewed whenavailable. Management options include but not limited to: physical exam, laboratory testing, discussion with other providers. Clinical Impression: 1.SOB, weight gain Based on the Medical Screening Exam performed and diagnostic tests at this time, further evaluationis indicated and will be performed. Patient will be transferred to a main ED room when one is available and care will be transferred to ER provider. Sweta Ludny PA-C [1] Past Medical History: Diagnosis Date Arrhythmia Cataracts, bilateral Depression Diabetes mellitus Hypertension Overactive bladder [2] Past Surgical History: Procedure Laterality Date Appendectomy Cholecystectomy [3] No current facility-administered medications for this encounter. Current Outpatient Medications Medication Sig Dispense Refill Carvedilol (COREG PO) Citalopram Hydrobromide (CELEXA PO) Insulin NPH Isophane & Regular (HUMULIN 70/30 SC) LISINOPRIL & DIET MANAGE PROD PO METFORMIN & DIET MANAGE PROD PO nitrofurantoin monohyd macro crystals (MACROBID) 100 MG capsule Take 1 Cap by mouth 2 times daily with morning and evening meal 14 Cap 0 NORTRIPTYLINE HCL PO OXYBUTYNIN CHLORIDE PO RANITIDINE & DIET MANAGE PROD PO TRAMADOL & DIETARY MANAGE PROD PO [4] Allergies Allergen Reactions Sulfa Drugs Urticaria documented in this encounter Miscellaneous Notes * BMT.01-Transfer of Care - Felicity Garcia RN - 05/31/2025 6:33 PM CDT Care Coordination Progress Note Expected Discharge Date: 06/02/2025 Discharge Plan: SNF vs home Discussed in MDR. Pt is clinically ready to transition to the next level of care. Spt's BP is beingmanaged and meds have been changes. Pt has been denies AR pRecs are for SNF and the team agrees that this level of care is more appropriate. SW reached out to family members to coordinate care and the family refused to provide choices. Family verbalized other concerns that have been escalated up to leadership. Pt has been placed on the weekend list. Family Support (Name and Phone): Extended Emergency Contact Information Primary Emergency Contact: Mounika Rice [address]: [address] [place] [address] [place] Mobile Relation: Sister Secondary Emergency Contact: Laura Mcginnis (POA) Mobile Relation: Sister Transportation at Discharge: Family: READMISSION RISK SCORE is 17 at 6:33 PM 05/31/2025.: Name: Felicity Garcia RN * Clinical References AVS - Re Holcomb RD/MAGDALENO - 05/27/2025 5:09 PM CDT Images from the original note were not included. 73219 Low Blood Sugar (Hypoglycemia) Low blood sugar (hypoglycemia) means you don?t have enough sugar (glucose) in your bloodstream to help your body work. This may be a level of sugar lower than 70 mg/dL. But talk with your healthcare provider about your own target range. Ask what level is too low for you. Diabetes doesn?t cause low blood sugar. But some treatments for diabetes may raise the risk for it.These include oral medicines or insulin. Skipping or delaying meals can also increase your risk forhypoglycemia. In severe cases, low blood sugar may make you pass out or have a seizure. This is a medical emergency. So always treat low blood sugar right away as noted below. This is to prevent moreserious problems. Safety note Always carry a source of fast-acting sugar and a snack in case you have low blood sugar. Examples include: ? 4 glucose tablets ? 1 tube of glucose gel ? 1 packet of sugar or honey ? 2 tablespoons of raisins Symptoms of low blood sugar If you have low blood sugar, you may have 1 or more of these symptoms: ? Shakiness ? Dizziness ? Cold, clammy skin or sweating ? Hunger ? Headache ? Nervous feeling ? A hard, fast heartbeat ? Weakness ? Confusion or irritability ? Trouble seeing or talking ? Having nightmares or waking up confused or sweating ? Numbness or tingling in the lips or tongue What to do If you think you have low blood sugar: 1. Check your sugar. First, check your blood sugar. If it's too low (out of your target range), eator drink 15 to 20 grams of fast-acting sugar. This may be 3 to 4 glucose tablets, or 4 ounces (halfa cup) of fruit juice or regular (not diet) soda, or 1 tablespoon of honey. Don?t take more than this. If you do, your blood sugar may go too high. 2. Don?t have protein. Don't eat or drink things high in protein to treat low blood sugar. This includes milk, nuts, and meat. Protein may increase your insulin response. It may lower your blood sugar even more. 3. Check again. Wait 15 minutes. Then recheck your blood sugar if you can. If your blood sugar is still too low, repeat the steps above until your blood sugar is back to normal. 4. Eat a snack. When your blood sugar is back at target range, eat a snack or meal. 5. Get help if needed. If you still don?t feel well and your blood sugar is still low, have someonedrive you to the emergency room. Preventing low blood sugar Things you can do include the below: ? If your diabetes needs a strict treatment plan, eat meals and snacks at the same times each day. Don?t skip meals. If you have trouble paying for food, talk with your healthcare team for help. ? If your treatment plan lets you change when and what you eat, learn how to change the time and dose of your rapid-acting insulin to match. ? Ask your healthcare provider if it's safe to drink alcohol. But never drink on an empty stomach. Alcohol may keep you from feeling the first symptoms of low blood sugar. ? Take your medicine at the prescribed times. ? Always carry a source of fast-acting sugar and a snack when you?re away from home. If you have had repeated low blood sugar episodes: ? You may not notice the symptoms of low blood sugar until it gets to a dangerous level. Work with your provider for the best ways to safely manage your blood sugar. ? Ask your healthcare provider if you can take less or different medicine. Many newer types of diabetes medicines have less risk of low blood sugar. ? Talk with your provider about a continuous glucose monitor. This is a device that tracks your blood sugar. ? Ask your provider if you should be prescribed a medicine called glucagon. Glucagon is a hormone that quickly raises blood sugar. It can reverse serious symptoms. It is available as an injection or as a powder that's put into the nose. Ask your healthcare provider which type of glucagon is best for you and how to use it. Other safety tips Make sure to: ? Carry a medical ID card or wear a medical alert bracelet or necklace. It should say that you havediabetes. It should say what to do if you pass out or have a seizure. ? Teach your family, friends, and coworkers the signs of low blood sugar. Tell them what to do if your blood sugar falls very low and you can?t treat yourself. ? Keep a glucagon emergency kit handy. Show your family, friends, and coworkers how and when to useit. Check it often. Replace the glucagon before it expires. ? Talk with your healthcare team about other things you can do to prevent low blood sugar. These include using new ways of continuous glucose tracking. Important If you have unexplained low blood sugar or have it several times, call your healthcare provider. Last Reviewed Date: 2023 00:00:00 ?? [id number] [employer]. All rights reserved. This information is not intended as a substitute for professional medical care. Always follow your healthcare professional's instructions. * Clinical References AVS - Re Holcomb RD/LDN - 05/27/2025 12:42 PM CDT Images from the original note were not included. 13697 Long-Term Complications of Diabetes Over time, diabetes can cause complications throughout the body. They are more likely to happen if your blood sugar is often too high. They can also happen if your diabetes isn't under good control. High blood sugar can damage blood vessels in your body over time. It's important to keep your blood sugar in your target range. This can help prevent or delay complications. Possible complications Diabetes can cause: ? Eye problems. These include damage to the blood vessels in the eyes, pressure in the eye, and clouding of the eye?s lens. Eye problems can lead to bleeding and blindness over time. ? Tooth and gum problems. These can cause pain, infection, or loss of teeth and bone. ? Blood vessel disease. This can lead to circulation problems, heart attack, or stroke. You may need a limb removed because of poor blood flow to the skin. ? Problems with sexual function. This includes erectile dysfunction and sexual discomfort. ? Kidney disease. This can lead to kidney failure. You may need dialysis or a kidney transplant if this happens. ? Nerve problems. These can cause pain or loss of feeling in your feet and other parts of your body. This may lead to loss of a limb. Nerve damage may also cause hearing loss. ? High blood pressure. This health problem puts strain on your heart and blood vessels. ? Serious infections. These may lead to loss of toes, feet, or limbs. ? Metabolic dysfunction-associated steatotic liver disease. Having type 2 diabetes raises the risk for severe fat buildup in the liver. ? Muscle and bone problems. These include carpal tunnel syndrome, frozen shoulder, Dupuytren contractures in the fingers, fractures, and osteoporosis. How to prevent complications You can help prevent these serious complications by managing your blood sugar levels, blood pressure, and cholesterol. This can help you feel better and stay healthy. You can help control diabetes bytracking your blood sugar levels regularly as advised by your doctor. Eat healthy foods and exercise to prevent weight gain. Stop all tobacco products if you smoke. Thiswill greatly improve your overall health. Go to all of your health care appointments. Get the recommended health checks, such as blood and urine tests, blood pressure screenings, eye exams, foot checks, dental exams, and bone health tests. Also stay up-to-date on the recommended vaccines. Ask your doctor what vaccines you should have. It's important to take medicine as directed by your doctor. Report any side effects as advised by your doctor. Also tell your doctor if you have trouble staying at healthy blood sugar levels. Last Reviewed Date: 2023 00:00:00 ?? [id number] [employer]. All rights reserved. This information is not intended as a substitute for professional medical care. Always follow your healthcare professional's instructions. * Clinical References AVS - Re Holcomb RD/LDN - 05/27/2025 12:42 PM CDT Images from the original note were not included. 61427 Diabetes: Caring for Your Body When you have diabetes, your body needs special care. This care helps you stay healthy and prevent problems. Exercise and healthy eating are a part of this. You can also protect yourself by taking special care of your feet, skin, teeth, and eyes. Caring for your feet Follow these tips to help keep your feet healthy: ? Check your feet every day for redness, blisters, cracks, dry skin, or numbness. Use a mirror to check the bottoms of your feet, if needed. Or ask for help. ? Wash your feet in warm (not hot) water. Don?t soak them. ? Use an emery board to keep your toenails even with the ends of your toes. File away sharp edges. A healthcare provider who specializes in care of the foot and ankle(tank crewmember) may need to cut yourtoenails for you. ? Smooth down calluses gently. Or wait until your next podiatry appointment. ? Keep your skin soft and smooth by putting a thin layer of skin lotion on the tops and bottoms of your feet. Don't put lotion in between your toes. ? Always wear shoes or slippers, even inside your home. Make sure that shoes are correctly fitted, not too tight and not too loose. This can cause friction and rubbing of your feet. Change your socksdaily. Always check shoes for foreign objects before putting them on. ? Call your healthcare provider right away if your feet are numb or painful. Also call your provider if a cut or sore doesn?t heal in a few days. Preventing skin infections To prevent skin infections, bathe every day. But use a moderate water temperature. Dry yourself well, especially between your toes. Try to keep your home on the humid side during the colder months ofthe year to prevent your skin getting dry. Wash any cuts with warm, soapy water. Cover with a sterile bandage. Call your provider if a cut or sore doesn't heal in a few days, feels warm, itches, is swollen, has fluid leaking, or has a bad smell. Caring for your teeth Follow these guidelines for healthy teeth: ? [place] your teeth twice daily. ? Floss your teeth daily. ? See your dentist at least twice yearly or as advised. ? Keep your blood sugar in a good range. Caring for your eyes Have a comprehensive eye exam with dilation every year by an eye care provider, such as an manager payment or application operations engineer. Let your provider know if you have any of these symptoms: ? Blurred or cloudy vision ? Dark spots or holes ? Flashes of light ? Seeing more floaters than normal ? Poor night vision ? Loss of peripheral (side) vision If you smoke, quit Smoking is dangerous for everyone, especially people with diabetes. People with diabetes should notuse cigarettes or other tobacco products or e-cigarettes. It can harm the blood vessels in your eyes, kidneys, nerves, and heart. It raises blood pressure. Smoking can also slow healing, so infections are more likely. Ask your healthcare provider about programs to help you stop smoking. Last Reviewed Date: 2023 00:00:00 ?? [id number] [employer]. All rights reserved. This information is not intended as a substitute for professional medical care. Always follow your healthcare professional's instructions. * Clinical References AVS - Re Holcomb RD/LDN - 05/27/2025 12:42 PM CDT [id number] Diabetes: Overview Diabetes is a long-term health problem. It means your body doesn't make enough insulin. Or it may mean that your body can't use the insulin it makes. Insulin is a hormone in your body. It lets blood sugar (glucose) reach the cells in your body. All of your cells need glucose for fuel. Glucose in your blood builds up when you have diabetes. This is because it can't get into the cells. This is called high blood sugar ( hyperglycemia). There are different types of diabetes. They are type 1 diabetes and type 2 diabetes. Your doctor can tell you which type you have and what that means for your care. Ask your diabetes care team about a service called diabetes self-management education and support (DSMES). The [place] [employer] advises that all people with diabetes should participate in an individually appropriate DSMES. You will learn skills to help you better manage your diabetes and find support when you need it. This service should be provided at diagnosis, annually, or when not meeting treatment goals. Blood sugar levels Your blood sugar level depends on several things. These include food, medicine, insulin, and exercise. Your care team can show you how to check your blood sugar. They will also tell you how often to check it. Ask what target range is right for you. Normal blood sugar levels are often: ? 80 mg/dL to 130 mg/dL before a meal. ? Less than 180 mg/dL in the 1 to 2 hours after the start of a meal. Things that can cause high blood sugar (hyperglycemia) include: ? Eating too much of certain foods. ? Not taking diabetes medicines on time, skipping doses, or taking less medicine than prescribed. ? Stress. ? Illness, such as a cold or the flu. ? Infection. ? Exercising less than planned. Things that can cause low blood sugar (hypoglycemia) include: ? Missing meals. ? Not eating enough food after taking diabetes medicine. ? Doing unplanned or heavy exercise. ? Taking too much diabetes medicine. Complications Diabetes can cause serious problems over time if it isn't managed well. These problems include: ? Heart disease. ? Diabetic ketoacidosis. ? Stroke. ? Kidney failure. ? Blindness. ? Nerve damage (neuropathy). ? Loss of feeling in the legs and feet. ? Tissue (gangrene). You can prevent or delay these problems by keeping your blood sugar under control. Home care Follow these guidelines when caring for yourself at home: ? Follow the diet your doctor gives you. ? Take insulin or other diabetes medicine exactly as you have been directed. ? Check your blood sugar as you have been directed. Keep a log of your results. Share the results with your doctor. This will help them change your medicines as needed to keep your blood sugar under control. ? Ask your doctor what your ideal weight is. Then take steps to reach that weight. Your doctor can help you. You may be able to cut back on or not have to take diabetes medicine if you eat well and get exercise. ? Don't smoke. Smoking makes the effects of diabetes on your circulation worse. You are much more likely to have a heart attack if you have diabetes and you smoke. Also don't use e-cigarettes or vaping products. ? Take good care of your feet. You may not notice an injury or infection if you have lost feeling in your feet. Check your feet and between your toes at least once a day. Use a mirror to check the bottoms of your feet. ? Wear a medical alert bracelet or necklace. Or carry a card in your wallet that says you have diabetes. This will help doctors give you the right care if you get very ill and can't tell them that you have diabetes. Sick-day plan If you get a cold, the flu, or an infection, take these steps unless directed otherwise by your doctor: ? Look at your diabetes sick plan. Call your doctor as you were directed. Call your doctor right away if: o Your blood sugar is above 240 mg/dL (or as directed by your doctor) while taking your diabetes medicine. o Your urine ketone levels are above normal or high. o You have been vomiting more than 6 hours. o You have trouble breathing or your breath has a fruity smell. o You have a fever of 100.4??F (38??C) or higher, or as directed by your doctor. o You have a fever for several days and you are not getting better. o You get lightheaded and are sleepier than usual. ? Keep taking your diabetes pills (oral medicine) even if you have been vomiting and are feeling sick, or as directed by your doctor. Call your doctor right away. This is because you may need insulinto lower your blood sugar until you recover from your illness. ? Keep taking your insulin even if you have been vomiting and are feeling sick, or as directed by your doctor. Call your doctor right away to ask if you need to change your insulin dose. This will depend on your blood sugar results and the type of illness or symptoms you have. ? Check your blood sugar every 2 to 4 hours, or at least 4 times a day. ? Check your ketones often. Watch them more often if you are vomiting and having diarrhea. ? Don't skip meals. Try to eat small meals on a regular schedule. Do this even if you don't feel like eating. ? Drink water or other liquids that don't have caffeine or calories. This will keep you from getting dehydrated. If you are nauseated or vomiting, takes small sips every 5 minutes. To prevent dehydration, try to drink a cup (8 ounces) of fluids every hour while you are awake. Treat low blood sugar (hypoglycemia) Low blood sugar can be an emergency. Always bring a source of fast-acting sugar with you. This is in case you have symptoms of low blood sugar. This means below 70 mg/dL or as directed by your doctor. At the first sign of low blood sugar, eat or drink 15 grams of fast-acting sugar to raise your blood sugar. Examples are: ? 3 to 4 glucose tablets (follow directions on the packaging). You can buy these at most drugstores. ? 4 ounces (1/2 cup) of regular (not diet) soft drinks. ? 4 ounces (1/2 cup) of any fruit juice. ? 1 tablespoon of sugar or honey. Check your blood sugar 15 minutes after treating yourself. If it's still below 70 mg/dL, take 15 more grams of fast-acting sugar. Test your blood sugar again in 15 minutes. If your blood sugar returns to normal (70 mg/dL or above), eat a snack or meal to keep your blood sugar in a safe range. If itstays low, call your doctor right away or go to an emergency room. If you have had severe low blood sugar episodes, see that someone in your family is trained to giveyou a shot of glucagon. This will raise your blood sugar if you are unconscious and can't eat any of the above tablets or foods. Follow-up care Follow up with your doctor as advised. For more information about diabetes, visit the [place] [employer] website at www.diabetes.org. Or you can call 287-487-2425. When to get medical care Contact your doctor right away if you have any symptoms of high blood sugar, such as: ? Peeing often. ? Drowsiness. ? Thirst. ? Headache. ? Upset stomach (nausea) or vomiting. ? Belly (abdominal) pain. ? Eyesight changes. ? Fast breathing. Also call your doctor right away if you have any signs of low blood sugar and they don't go away with the above treatment suggestions. These signs include: ? Severe tiredness (fatigue). ? Headache. ? Shakes. ? Chills. ? Excess sweating or clamminess. ? Hunger. ? Feeling anxious or restless. ? Eyesight changes. ? Drowsiness. ? Weakness. Call 911 Call 911 if you have: ? Chest pain. ? Shortness of breath. ? Dizziness or fainting. ? Weakness of an arm or leg or 1 side of the face. ? Trouble speaking or seeing. ? Confusion or loss of consciousness. Last Reviewed Date: 2022 00:00:00 ?? [id number] [employer]. All rights reserved. This information is not intended as a substitute for professional medical care. Always follow your healthcare professional's instructions. * Clinical References AVS - Re Holcomb RD/LDN - 05/27/2025 12:42 PM CDT [id number] Diabetes: Know Your Goal Numbers Diabetes Tests Worksheet Tests ADA ([place] [employer]) Targets Current Numbers My Goal Blood sugar ? A1C or eAG Less than 7.0% or lower than 154 mg/dL ? Premeal blood sugar 80-130 mg/dL ? Postmeal blood sugar (1 to 2 hours after meal starts) Lower than 180 mg/dL Blood pressure Less than 130/80 mmHg (a lower number may be advised) Blood lipids Talk with your healthcare team about your current blood lipid levels and what goal numbers are right for you. ? LDL (bad cholesterol) ? HDL (good cholesterol) ? Triglycerides Urinary albumin to creatinine ratio Lower than 30 mg Estimated glomerular filtration rate (eGFR) Higher than 60 mL/min Weight Next checkup date: Data supported by: Standards of Care in Diabetes - 2024. Diabetes Care. October 2024 S133, S209, S215, and S297 Last Reviewed Date: 2025 00:00:00 ?? [id number] [employer]. All rights reserved. This information is not intended as a substitute for professional medical care. Always follow your healthcare professional's instructions. 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 Office Visit [facility] - [address] [place] [id number] Tiffanie Brown MD [address] [place] [id number] Scheduled Orders Name Type Priority Associated Diagnoses Orde r Schedule ECHO CHANCE Echocardiography Cupid Routine Atrial fibrillation, unspecified type (HCC) Left atrial thrombus Expected: 08/20/2025, Expires: 05/26/2026 Scheduled Referrals Name Type Priority Associated Diagnoses Order Schedule Ref to Cardiology [facility] Outpatient Referral Routine Atrial fibrillation, unspecified type (HCC) Left atrial thrombus 1 Occurrences starting 05/26/2025 until 05/26/2026 REF TO [facility] Outpatient Referral Routine Acute on chronic congestive heart failure, unspecified heart failure type (HCC) Hyponatremia Atrial fibrillation, unspecified type (HCC) Left atrial thrombus 1 Occurrences starting 05/26/2025 until 05/26/2026 OT Eval and Treat Referral Outpatient Referral Routine Left atrial thrombus 1 Occurrences starting 06/05/2025 until 06/05/2026 PT Eval and Treat Referral Outpatient Referral Routine Left atrial thrombus 1 Occurrences starting 06/05/2025 until 06/05/2026 Ref to [facility] Outpatient Referral Routine Left atrial thrombus 1 Occurrences starting 06/05/2025 until 06/05/2026 documented as of this encounter Procedures Procedure Name Priority Date/Time Associated Diagnosis Comments GLUCOSE - POINT OF CARE Routine 06/06/2025 11:18 AM CDT GLUCOSE - POINT OF CARE Routine 06/06/2025 8:10 AM CDT CBC W/O DIFFERENTIAL AM Draw 06/06/2025 5:19 AM CDT COMPREHENSIVE METABOLIC PANEL AM Draw 06/06/2025 5:19 AM CDT PHOSPHORUS BLOOD Routine 06/06/2025 5:19 AM CDT MAGNESIUM BLOOD Routine 06/06/2025 5:19 AM CDT GLUCOSE - POINT OF CARE Routine 06/05/2025 8:13 PM CDT GLUCOSE - POINT OF CARE Routine 06/05/2025 5:45 PM CDT GLUCOSE - POINT OF CARE Routine 06/05/2025 12:28 PM CDT GLUCOSE - POINT OF CARE Routine 06/05/2025 8:53 AM CDT CBC W/O DIFFERENTIAL AM Draw 06/05/2025 4:41 AM CDT COMPREHENSIVE METABOLIC PANEL AM Draw 06/05/2025 4:41 AM CDT PHOSPHORUS BLOOD Routine 06/05/2025 4:41 AM CDT MAGNESIUM BLOOD Routine 06/05/2025 4:41 AM CDT GLUCOSE - POINT OF CARE Routine 06/04/2025 9:46 PM CDT GLUCOSE - POINT OF CARE Routine 06/04/2025 8:49 PM CDT GLUCOSE - POINT OF CARE Routine 06/04/2025 5:33 PM CDT GLUCOSE - POINT OF CARE Routine 06/04/2025 11:53 AM CDT GLUCOSE - POINT OF CARE Routine 06/04/2025 8:51 AM CDT CBC W/O DIFFERENTIAL AM Draw 06/04/2025 4:10 AM CDT COMPREHENSIVE METABOLIC PANEL AM Draw 06/04/2025 4:10 AM CDT PHOSPHORUS BLOOD Routine 06/04/2025 4:10 AM CDT MAGNESIUM BLOOD Routine 06/04/2025 4:10 AM CDT GLUCOSE - POINT OF CARE Routine 06/03/2025 9:36 PM CDT GLUCOSE - POINT OF CARE Routine 06/03/2025 5:08 PM CDT GLUCOSE - POINT OF CARE Routine 06/03/2025 12:54 PM CDT GLUCOSE - POINT OF CARE Routine 06/03/2025 8:12 AM CDT CBC W/O DIFFERENTIAL AM Draw 06/03/2025 4:32 AM CDT COMPREHENSIVE METABOLIC PANEL AM Draw 06/03/2025 4:32 AM CDT PHOSPHORUS BLOOD Routine 06/03/2025 4:32 AM CDT MAGNESIUM BLOOD Routine 06/03/2025 4:32 AM CDT GLUCOSE - POINT OF CARE Routine 06/02/2025 10:30 PM CDT GLUCOSE - POINT OF CARE Routine 06/02/2025 9:04 PM CDT GLUCOSE - POINT OF CARE Routine 06/02/2025 5:45 PM CDT GLUCOSE - POINT OF CARE Routine 06/02/2025 2:13 PM CDT GLUCOSE - POINT OF CARE Routine 06/02/2025 11:47 AM CDT GLUCOSE - POINT OF CARE Routine 06/02/2025 8:26 AM CDT CBC W/O DIFFERENTIAL AM Draw 06/02/2025 5:59 AM CDT COMPREHENSIVE METABOLIC PANEL AM Draw 06/02/2025 5:59 AM CDT PHOSPHORUS BLOOD Routine 06/02/2025 5:59 AM CDT MAGNESIUM BLOOD Routine 06/02/2025 5:59 AM CDT GLUCOSE - POINT OF CARE Routine 06/01/2025 8:49 PM CDT GLUCOSE - POINT OF CARE Routine 06/01/2025 6:05 PM CDT GLUCOSE - POINT OF CARE Routine 06/01/2025 12:18 PM CDT GLUCOSE - POINT OF CARE Routine 06/01/2025 8:43 AM CDT COMPREHENSIVE METABOLIC PANEL AM Draw 06/01/2025 4:06 AM CDT PHOSPHORUS BLOOD Routine 06/01/2025 4:06 AM CDT MAGNESIUM BLOOD Routine 06/01/2025 4:06 AM CDT CBC W/O DIFFERENTIAL AM Draw 06/01/2025 4:05 AM CDT GLUCOSE - POINT OF CARE Routine 05/31/2025 9:28 PM CDT GLUCOSE - POINT OF CARE Routine 05/31/2025 5:13 PM CDT GLUCOSE - POINT OF CARE Routine 05/31/2025 12:44 PM CDT GLUCOSE - POINT OF CARE Routine 05/31/2025 8:52 AM CDT CBC W/O DIFFERENTIAL AM Draw 05/31/2025 2:21 AM CDT COMPREHENSIVE METABOLIC PANEL AM Draw 05/31/2025 2:21 AM CDT PHOSPHORUS BLOOD Routine 05/31/2025 2:21 AM CDT MAGNESIUM BLOOD Routine 05/31/2025 2:21 AM CDT GLUCOSE - POINT OF CARE Routine 05/30/2025 8:24 PM CDT FOLATE Routine 05/30/2025 7:00 PM CDT GLUCOSE - POINT OF CARE Routine 05/30/2025 5:12 PM CDT GLUCOSE - POINT OF CARE Routine 05/30/2025 11:28 AM CDT GLUCOSE - POINT OF CARE Routine 05/30/2025 8:44 AM CDT CBC W/O DIFFERENTIAL AM Draw 05/30/2025 3:05 AM CDT COMPREHENSIVE METABOLIC PANEL AM Draw 05/30/2025 3:05 AM CDT PHOSPHORUS BLOOD Routine 05/30/2025 3:05 AM CDT MAGNESIUM BLOOD Routine 05/30/2025 3:05 AM CDT VITAMIN B12 Routine 05/30/2025 3:05 AM CDT GLUCOSE - POINT OF CARE Routine 05/29/2025 9:51 PM CDT GLUCOSE - POINT OF CARE Routine 05/29/2025 5:48 PM CDT GLUCOSE - POINT OF CARE Routine 05/29/2025 12:37 PM CDT GLUCOSE - POINT OF CARE Routine 05/29/2025 8:35 AM CDT CBC W/O DIFFERENTIAL AM Draw 05/29/2025 3:31 AM CDT COMPREHENSIVE METABOLIC PANEL AM Draw 05/29/2025 3:31 AM CDT PHOSPHORUS BLOOD Routine 05/29/2025 3:31 AM CDT MAGNESIUM BLOOD Routine 05/29/2025 3:31 AM CDT GLUCOSE - POINT OF CARE Routine 05/28/2025 9:49 PM CDT GLUCOSE - POINT OF CARE Routine 05/28/2025 4:53 PM CDT COMPREHENSIVE METABOLIC PANEL Routine 05/28/2025 10:21 AM CDT ECHO COMPLETE W CONTRAST Routine 05/28/2025 9:26 AM CDT Atrial fibrillation, unspecified type (HCC) GLUCOSE - POINT OF CARE Routine 05/28/2025 6:45 AM CDT RENAL FUNCTION PANEL Routine 05/28/2025 6:34 AM CDT Hyponatremia MAGNESIUM BLOOD Routine 05/28/2025 6:34 AM CDT CBC W/O DIFFERENTIAL AM Draw 05/28/2025 6:33 AM CDT GLUCOSE - POINT OF CARE Routine 05/27/2025 10:28 PM CDT GLUCOSE - POINT OF CARE Routine 05/27/2025 4:38 PM CDT SARS-COV-2 (COVID-19) RAPID Routine 05/27/2025 2:39 PM CDT GLUCOSE - POINT OF CARE Routine 05/27/2025 12:14 PM CDT RENAL FUNCTION PANEL Timed 05/27/2025 10:58 AM CDT GLUCOSE - POINT OF CARE Routine 05/27/2025 9:29 AM CDT CBC W/O DIFFERENTIAL AM Draw 05/27/2025 4:17 AM CDT RENAL FUNCTION PANEL Routine 05/27/2025 4:17 AM CDT Hyponatremia MAGNESIUM BLOOD Routine 05/27/2025 4:17 AM CDT GLUCOSE - POINT OF CARE Routine 05/26/2025 8:05 PM CDT RENAL FUNCTION PANEL Routine 05/26/2025 4:05 PM CDT Hyponatremia GLUCOSE - POINT OF CARE Routine 05/26/2025 4:03 PM CDT GLUCOSE - POINT OF CARE Routine 05/26/2025 12:16 PM CDT GLUCOSE - POINT OF CARE Routine 05/26/2025 8:58 AM CDT CBC W/O DIFFERENTIAL AM Draw 05/26/2025 4:44 AM CDT RENAL FUNCTION PANEL Routine 05/26/2025 4:44 AM CDT Hyponatremia MAGNESIUM BLOOD Routine 05/26/2025 4:44 AM CDT GLUCOSE - POINT OF CARE Routine 05/26/2025 4:43 AM CDT GLUCOSE - POINT OF CARE Routine 05/26/2025 12:39 AM CDT XR ABDOMEN KUB PORTABLE STAT 05/25/2025 9:00 PM CDT Other shock (HCC) GLUCOSE - POINT OF CARE Routine 05/25/2025 8:27 PM CDT RENAL FUNCTION PANEL Routine 05/25/2025 5:21 PM CDT Hyponatremia GLUCOSE - POINT OF CARE Routine 05/25/2025 5:14 PM CDT GLUCOSE - POINT OF CARE Routine 05/25/2025 11:49 AM CDT GLUCOSE - POINT OF CARE Routine 05/25/2025 8:54 AM CDT RENAL FUNCTION PANEL Routine 05/25/2025 5:37 AM CDT Hyponatremia MAGNESIUM BLOOD Routine 05/25/2025 5:37 AM CDT CBC W/O DIFFERENTIAL AM Draw 05/25/2025 4:18 AM CDT GLUCOSE - POINT OF CARE Routine 05/25/2025 3:44 AM CDT GLUCOSE - POINT OF CARE Routine 05/25/2025 12:23 AM CDT GLUCOSE - POINT OF CARE Routine 05/24/2025 8:16 PM CDT GLUCOSE - POINT OF CARE Routine 05/24/2025 4:47 PM CDT RENAL FUNCTION PANEL Routine 05/24/2025 4:27 PM CDT Hyponatremia GLUCOSE - POINT OF CARE Routine 05/24/2025 11:25 AM CDT GLUCOSE - POINT OF CARE Routine 05/24/2025 8:00 AM CDT GLUCOSE - POINT OF CARE Routine 05/24/2025 5:44 AM CDT CBC W/O DIFFERENTIAL AM Draw 05/24/2025 5:27 AM CDT RENAL FUNCTION PANEL Routine 05/24/2025 5:27 AM CDT Hyponatremia MAGNESIUM BLOOD Routine 05/24/2025 5:27 AM CDT GLUCOSE - POINT OF CARE Routine 05/23/2025 11:33 PM CDT GLUCOSE - POINT OF CARE Routine 05/23/2025 7:55 PM CDT GLUCOSE - POINT OF CARE Routine 05/23/2025 4:09 PM CDT RENAL FUNCTION PANEL Routine 05/23/2025 4:09 PM CDT Hyponatremia GLUCOSE - POINT OF CARE Routine 05/23/2025 12:56 PM CDT XR ABDOMEN KUB PORTABLE STAT 05/23/2025 9:09 AM CDT Other shock (HCC) XR CHEST 1VW PORTABLE STAT 05/23/2025 9:07 AM CDT Acute on chronic congestive heart failure, unspecified heart failure type (HCC) GLUCOSE - POINT OF CARE Routine 05/23/2025 8:24 AM CDT GLUCOSE - POINT OF CARE Routine 05/23/2025 3:27 AM CDT CBC W/O DIFFERENTIAL AM Draw 05/23/2025 3:26 AM CDT RENAL FUNCTION PANEL Routine 05/23/2025 3:26 AM CDT Hyponatremia MAGNESIUM BLOOD Routine 05/23/2025 3:26 AM CDT GLUCOSE - POINT OF CARE Routine 05/23/2025 12:15 AM CDT GLUCOSE - POINT OF CARE Routine 05/22/2025 7:56 PM CDT GLUCOSE - POINT OF CARE Routine 05/22/2025 4:13 PM CDT RENAL FUNCTION PANEL Routine 05/22/2025 4:04 PM CDT Hyponatremia MAGNESIUM BLOOD Routine 05/22/2025 4:04 PM CDT GLUCOSE - POINT OF CARE Routine 05/22/2025 12:31 PM CDT GLUCOSE - POINT OF CARE Routine 05/22/2025 8:03 AM CDT BLOOD GASES ART + COOX PANEL Routine 05/22/2025 5:54 AM CDT CBC W/O DIFFERENTIAL AM Draw 05/22/2025 4:15 AM CDT RENAL FUNCTION PANEL Routine 05/22/2025 4:15 AM CDT Hyponatremia MAGNESIUM BLOOD Routine 05/22/2025 4:15 AM CDT BLOOD GASES ART + COOX PANEL Timed 05/22/2025 4:15 AM CDT GLUCOSE - POINT OF CARE Routine 05/22/2025 4:14 AM CDT GLUCOSE - POINT OF CARE Routine 05/22/2025 12:08 AM CDT GLUCOSE - POINT OF CARE Routine 05/21/2025 9:03 PM CDT GLUCOSE - POINT OF CARE Routine 05/21/2025 8:14 PM CDT BLOOD GASES GATO + COOX PANEL STAT 05/21/2025 7:05 PM CDT CBC W/O DIFFERENTIAL STAT 05/21/2025 7:05 PM CDT COMPREHENSIVE METABOLIC PANEL STAT 05/21/2025 7:05 PM CDT PHOSPHORUS BLOOD STAT 05/21/2025 7:05 PM CDT MAGNESIUM BLOOD STAT 05/21/2025 7:05 PM CDT LACTIC ACID BLOOD STAT 05/21/2025 7:0 5 PM CDT BLOOD GASES ART + COOX PANEL STAT 05/21/2025 7:05 PM CDT GLUCOSE - POINT OF CARE Routine 05/21/2025 4:09 PM CDT RENAL FUNCTION PANEL Routine 05/21/2025 4:01 PM CDT Hyponatremia MAGNESIUM BLOOD Routine 05/21/2025 4:01 PM CDT BLOOD GASES ART + COOX PANEL Routine 05/21/2025 4:01 PM CDT GLUCOSE - POINT OF CARE Routine 05/21/2025 12:26 PM CDT GLUCOSE - POINT OF CARE Routine 05/21/2025 8:50 AM CDT BLOOD GASES GATO + COOX PANEL Routine 05/21/2025 8:44 AM CDT MAGNESIUM BLOOD Routine 05/21/2025 8:44 AM CDT LACTIC ACID BLOOD Routine 05/21/2025 8:4 4 AM CDT Acute kidney injury History of endocarditis GLUCOSE - POINT OF CARE Routine 05/21/2025 3:29 AM CDT CBC W AUTO DIFFERENTIAL AM Draw 05/21/2025 3:29 AM CDT COMPREHENSIVE METABOLIC PANEL AM Draw 05/21/2025 3:29 AM CDT MAGNESIUM BLOOD Routine 05/21/2025 3:29 AM CDT LACTIC ACID BLOOD Routine 05/21/2025 3:2 9 AM CDT Acute kidney injury History of endocarditis GLUCOSE - POINT OF CARE Routine 05/21/2025 12:33 AM CDT GLUCOSE - POINT OF CARE Routine 05/20/2025 9:41 PM CDT MAGNESIUM BLOOD Routine 05/20/2025 9:41 PM CDT LACTIC ACID BLOOD Routine 05/20/2025 9:4 1 PM CDT Acute kidney injury History of endocarditis XR ABDOMEN KUB PORTABLE STAT 05/20/2025 6:44 PM CDT Atrial fibrillation, unspecified type (HCC) CT HEAD WO CONTRAST STAT 05/20/2025 6 :18 PM CDT Traumatic brain injury with loss of consciousness, sequela GLUCOSE - POINT OF CARE Routine 05/20/2025 4:57 PM CDT RENAL FUNCTION PANEL Routine 05/20/2025 4:46 PM CDT Hyponatremia MAGNESIUM BLOOD Routine 05/20/2025 4:46 PM CDT LACTIC ACID BLOOD Routine 05/20/2025 4:4 6 PM CDT Acute kidney injury History of endocarditis GLUCOSE - POINT OF CARE Routine 05/20/2025 12:10 PM CDT LACTIC ACID BLOOD Routine 05/20/2025 12: 10 PM CDT Acute kidney injury History of endocarditis BLOOD GASES ART + COOX PANEL Routine 05/20/2025 12:10 PM CDT Acute on chronic congestive heart failure, unspecified heart failure type (HCC) ECHO CHANCE COMPLETE Routine 05/20/2025 10: 14 AM CDT Acute on chronic congestive heart failure, unspecified heart failure type (HCC) EKG 12-LEAD STAT 05/20/2025 9:26 AM CDT Atrial fibrillation, unspecified type (HCC) EKG 12-LEAD Routine 05/20/2025 9:25 AM CDT Atrial fibrillation, unspecified type (HCC) COMPREHENSIVE METABOLIC PANEL Routine 05/20/2025 8:45 AM CDT RENAL FUNCTION PANEL Routine 05/20/2025 8:45 AM CDT Hyponatremia MAGNESIUM BLOOD Routine 05/20/2025 8:45 AM CDT LACTIC ACID BLOOD Routine 05/20/2025 8:4 5 AM CDT Acute kidney injury History of endocarditis BLOOD GASES ART + COOX PANEL Routine 05/20/2025 8:45 AM CDT Acute on chronic congestive heart failure, unspecified heart failure type (HCC) GLUCOSE - POINT OF CARE Routine 05/20/2025 5:22 AM CDT OSMOLALITY URINE MARCIA 05/20/2025 3:42 AM CDT BLOOD GASES GATO + COOX PANEL Routine 05/20/2025 3:06 AM CDT Acute on chronic congestive heart failure, unspecified heart failure type (HCC) CBC W AUTO DIFFERENTIAL AM Draw 05/20/2025 3:06 AM CDT RENAL FUNCTION PANEL Routine 05/20/2025 3:06 AM CDT Hyponatremia OSMOLALITY BLOOD MARCIA 05/20/2025 3:06 AM CDT MAGNESIUM BLOOD Routine 05/20/2025 3:06 AM CDT LACTIC ACID BLOOD Routine 05/20/2025 3:0 6 AM CDT Acute kidney injury History of endocarditis BLOOD GASES ART + COOX PANEL Routine 05/20/2025 3:06 AM CDT Acute on chronic congestive heart failure, unspecified heart failure type (HCC) GLUCOSE - POINT OF CARE Routine 05/20/2025 12:34 AM CDT LACTIC ACID BLOOD Routine 05/19/2025 11: 33 PM CDT Acute kidney injury History of endocarditis BLOOD GASES ART + COOX PANEL Routine 05/19/2025 11:33 PM CDT Acute on chronic congestive heart failure, unspecified heart failure type (HCC) RENAL FUNCTION PANEL Routine 05/19/2025 8:44 PM CDT Hyponatremia MAGNESIUM BLOOD Routine 05/19/2025 8:44 PM CDT LACTIC ACID BLOOD Routine 05/19/2025 8:4 4 PM CDT Acute kidney injury History of endocarditis BLOOD GASES ART + COOX PANEL Routine 05/19/2025 8:44 PM CDT Acute on chronic congestive heart failure, unspecified heart failure type (HCC) GLUCOSE - POINT OF CARE Routine 05/19/2025 6:59 PM CDT BLOOD GASES GATO + COOX PANEL Routine 05/19/2025 4:55 PM CDT Acute on chronic congestive heart failure, unspecified heart failure type (HCC) RENAL FUNCTION PANEL Routine 05/19/2025 4:55 PM CDT Hyponatremia MAGNESIUM BLOOD Routine 05/19/2025 4:55 PM CDT LACTIC ACID BLOOD Routine 05/19/2025 4:5 5 PM CDT Acute kidney injury History of endocarditis BLOOD GASES ART + COOX PANEL Routine 05/19/2025 4:55 PM CDT Acute on chronic congestive heart failure, unspecified heart failure type (HCC) CULTURE SPUTUM+GRAM STAIN Routine 05/19/2025 4:20 PM CDT LACTIC ACID BLOOD Routine 05/19/2025 12: 41 PM CDT Acute kidney injury History of endocarditis BLOOD GASES ART + COOX PANEL Routine 05/19/2025 12:41 PM CDT Acute on chronic congestive heart failure, unspecified heart failure type (HCC) GLUCOSE - POINT OF CARE Routine 05/19/2025 12:38 PM CDT RENAL FUNCTION PANEL Routine 05/19/2025 10:21 AM CDT Hyponatremia MAGNESIUM BLOOD Routine 05/19/2025 10:21 AM CDT DIGOXIN LEVEL Timed 05/19/2025 10:21 AM CDT LACTIC ACID BLOOD Routine 05/19/2025 9:0 0 AM CDT Acute kidney injury History of endocarditis BLOOD GASES ART + COOX PANEL Routine 05/19/2025 9:00 AM CDT Acute on chronic congestive heart failure, unspecified heart failure type (HCC) GLUCOSE - POINT OF CARE Routine 05/19/2025 8:59 AM CDT XR CHEST 1VW PORTABLE Routine 05/19/2025 6:11 AM CDT Shortness of breath Acute on chronic congestive heart failure, unspecified heart failure type (HCC) BLOOD GASES GATO + COOX PANEL Routine 05/19/2025 4:00 AM CDT Acute on chronic congestive heart failure, unspecified heart failure type (HCC) CBC W AUTO DIFFERENTIAL AM Draw 05/19/2025 4:00 AM CDT TRIGLYCERIDES BLOOD AM Draw 05/19/2025 4 :00 AM CDT RENAL FUNCTION PANEL Routine 05/19/2025 4:00 AM CDT Hyponatremia OSMOLALITY BLOOD MARCIA 05/19/2025 4:00 AM CDT MAGNESIUM BLOOD Routine 05/19/2025 4:00 AM CDT LACTIC ACID BLOOD Routine 05/19/2025 4:0 0 AM CDT Acute kidney injury History of endocarditis BLOOD GASES ART + COOX PANEL Routine 05/19/2025 4:00 AM CDT BLOOD GASES GATO + COOX PANEL Routine 05/18/2025 10:51 PM CDT Acute on chronic congestive heart failure, unspecified heart failure type (HCC) RENAL FUNCTION PANEL Routine 05/18/2025 10:51 PM CDT Hyponatremia MAGNESIUM BLOOD Routine 05/18/2025 10:51 PM CDT LACTIC ACID BLOOD Routine 05/18/2025 10: 51 PM CDT Acute kidney injury History of endocarditis BLOOD GASES ART + COOX PANEL Routine 05/18/2025 10:51 PM CDT GLUCOSE - POINT OF CARE Routine 05/18/2025 6:26 PM CDT LACTIC ACID BLOOD Routine 05/18/2025 4:3 7 PM CDT Acute kidney injury History of endocarditis BLOOD GASES GATO + COOX PANEL Routine 05/18/2025 3:48 PM CDT Acute on chronic congestive heart failure, unspecified heart failure type (HCC) RENAL FUNCTION PANEL Routine 05/18/2025 2:50 PM CDT Hyponatremia MAGNESIUM BLOOD Routine 05/18/2025 2:50 PM CDT LACTIC ACID BLOOD Routine 05/18/2025 2:5 0 PM CDT Acute kidney injury History of endocarditis BLOOD GASES ART + COOX PANEL Routine 05/18/2025 2:50 PM CDT GLUCOSE - POINT OF CARE Routine 05/18/2025 12:35 PM CDT BLOOD GASES GATO + COOX PANEL Routine 05/18/2025 9:33 AM CDT Acute on chronic congestive heart failure, unspecified heart failure type (HCC) RENAL FUNCTION PANEL Routine 05/18/2025 9:33 AM CDT Hyponatremia MAGNESIUM BLOOD Routine 05/18/2025 9:33 AM CDT LACTIC ACID BLOOD Routine 05/18/2025 9:3 3 AM CDT Acute kidney injury History of endocarditis GLUCOSE - POINT OF CARE Routine 05/18/2025 6:00 AM CDT XR CHEST 1VW PORTABLE Routine 05/18/2025 5:15 AM CDT Shortness of breath Hyponatremia Other shock (HCC) BLOOD GASES ART + COOX PANEL Routine 05/18/2025 4:16 AM CDT OSMOLALITY URINE MARCIA 05/18/2025 3:20 AM CDT SVO2 FOR RECALIBRATION Routine 05/18/2025 3:05 AM CDT CBC W AUTO DIFFERENTIAL AM Draw 05/18/2025 3:05 AM CDT RENAL FUNCTION PANEL Routine 05/18/2025 3:05 AM CDT Hyponatremia OSMOLALITY BLOOD MARCIA 05/18/2025 3:05 AM CDT MAGNESIUM BLOOD Routine 05/18/2025 3:05 AM CDT LACTIC ACID BLOOD Routine 05/18/2025 3:0 5 AM CDT Acute kidney injury History of endocarditis BLOOD GASES ART + COOX PANEL Routine 05/18/2025 3:05 AM CDT BILIRUBIN DIRECT Routine 05/18/2025 3:05 AM CDT GLUCOSE - POINT OF CARE Routine 05/17/2025 11:07 PM CDT SVO2 FOR RECALIBRATION Routine 05/17/2025 10:12 PM CDT MAGNESIUM BLOOD Routine 05/17/2025 10:12 PM CDT BLOOD GASES ART + COOX PANEL Routine 05/17/2025 10:12 PM CDT XR CHEST 1VW PORTABLE STAT 05/17/2025 7:17 PM CDT Other shock (HCC) SVO2 FOR RECALIBRATION STAT 05/17/2025 6:23 PM CDT CBC W/O DIFFERENTIAL STAT 05/17/2025 6:23 PM CDT LACTIC ACID BLOOD STAT 05/17/2025 6:2 3 PM CDT BLOOD GASES ART + COOX PANEL STAT 05/17/2025 6:23 PM CDT EKG 12-LEAD STAT 05/17/2025 6:14 PM CDT Other shock (HCC) GLUCOSE - POINT OF CARE Routine 05/17/2025 5:57 PM CDT COMPREHENSIVE METABOLIC PANEL Timed 05/17/2025 5:51 PM CDT PHOSPHORUS BLOOD Routine 05/17/2025 5:51 PM CDT Hyponatremia MAGNESIUM BLOOD Routine 05/17/2025 5:51 PM CDT LACTIC ACID BLOOD Routine 05/17/2025 5:5 1 PM CDT Acute kidney injury History of endocarditis MRSA PCR STAT 05/17/2025 2:40 PM CDT CULTURE BLOOD Timed 05/17/2025 2:40 PM CDT LACTIC ACID BLOOD Routine 05/17/2025 2:4 0 PM CDT Acute kidney injury History of endocarditis URINALYSIS REFLEX MICROSCOPIC REFLEX CULTURE Routine 05/17/2025 2:39 PM CDT CULTURE BLOOD Timed 05/17/2025 2:36 PM CDT US ABDOMEN LTD W COMP DOPPLER Routine 05/17/2025 2:19 PM CDT Hyperbilirubinemia Elevated alkaline phosphatase level CARDIAC EKG ORDER 05/17/2025 1:0 6 PM CDT BLOOD GASES ART + COOX PANEL Routine 05/17/2025 12:19 PM CDT GLUCOSE - POINT OF CARE Routine 05/17/2025 12:10 PM CDT MAGNESIUM BLOOD Routine 05/17/2025 9:[address] HEAD WO CONTRAST STAT 05/17/2025 8 :46 AM CDT Hyponatremia GLUCOSE - POINT OF CARE Routine 05/17/2025 7:41 AM CDT RENAL FUNCTION PANEL Routine 05/17/2025 7:33 AM CDT Hyponatremia LACTIC ACID BLOOD Routine 05/17/2025 7:3 3 AM CDT Acute kidney injury History of endocarditis GLUCOSE - POINT OF CARE Routine 05/17/2025 7:32 AM CDT GLUCOSE - POINT OF CARE Routine 05/17/2025 5:21 AM CDT BLOOD GASES GATO + COOX PANEL Routine 05/17/2025 4:10 AM CDT Acute on chronic congestive heart failure, unspecified heart failure type (HCC) XR CHEST 1VW PORTABLE Routine 05/17/2025 3:56 AM CDT Hyponatremia OSMOLALITY URINE MARCIA 05/17/2025 3:49 AM CDT XR ABDOMEN KUB PORTABLE STAT 05/17/2025 3:47 AM CDT Hyponatremia SODIUM BLOOD Timed 05/17/2025 3:11 AM CDT Hyponatremia CBC W AUTO DIFFERENTIAL AM Draw 05/17/2025 3:11 AM CDT RENAL FUNCTION PANEL Routine 05/17/2025 3:11 AM CDT Hyponatremia OSMOLALITY BLOOD MARCIA 05/17/2025 3:11 AM CDT MAGNESIUM BLOOD Routine 05/17/2025 3:11 AM CDT LACTIC ACID BLOOD Routine 05/17/2025 3:1 1 AM CDT Acute kidney injury History of endocarditis GLUCOSE - POINT OF CARE Routine 05/17/2025 12:09 AM CDT LACTIC ACID BLOOD Routine 05/17/2025 12: 05 AM CDT Acute kidney injury History of endocarditis RENAL FUNCTION PANEL Routine 05/16/2025 9:39 PM CDT MAGNESIUM BLOOD Routine 05/16/2025 9:39 PM CDT GLUCOSE - POINT OF CARE Routine 05/16/2025 9:03 PM CDT RENAL FUNCTION PANEL Routine 05/16/2025 5:50 PM CDT MAGNESIUM BLOOD Routine 05/16/2025 5:50 PM CDT LACTIC ACID BLOOD Routine 05/16/2025 5:5 0 PM CDT GLUCOSE - POINT OF CARE Routine 05/16/2025 4:22 PM CDT CARDIAC EKG ORDER 05/16/2025 12: 07 PM CDT GLUCOSE - POINT OF CARE Routine 05/16/2025 11:53 AM CDT BASIC METABOLIC PANEL (CALCIUM TOTAL) Timed 05/16/2025 10:47 AM CDT POTASSIUM BLOOD Routine 05/16/2025 10:47 AM CDT LACTIC ACID BLOOD STAT 05/16/2025 10: 47 AM CDT GLUCOSE - POINT OF CARE Routine 05/16/2025 10:21 AM CDT GLUCOSE - POINT OF CARE Routine 05/16/2025 9:46 AM CDT GLUCOSE - POINT OF CARE Routine 05/16/2025 9:23 AM CDT GLUCOSE - POINT OF CARE Routine 05/16/2025 9:10 AM CDT ECHO COMPLETE W CONTRAST Routine 05/16/2025 9:06 AM CDT Acute on chronic congestive heart failure, unspecified heart failure type (HCC) RENAL FUNCTION PANEL STAT 05/16/2025 8:27 AM CDT POTASSIUM BLOOD Routine 05/16/2025 8:27 AM CDT GLUCOSE - POINT OF CARE Routine 05/16/2025 7:15 AM CDT GLUCOSE - POINT OF CARE Routine 05/16/2025 6:45 AM CDT HEMOGLOBIN A1C Routine 05/16/2025 6:32 AM CDT POTASSIUM BLOOD Routine 05/16/2025 6:32 AM CDT GLUCOSE - POINT OF CARE Routine 05/16/2025 5:25 AM CDT GLUCOSE - POINT OF CARE Routine 05/16/2025 4:57 AM CDT EKG 12-LEAD Routine 05/16/2025 4:07 AM CDT Shortness of breath GLUCOSE - POINT OF CARE Routine 05/16/2025 4:00 AM CDT URINALYSIS REFLEX TO MICROSCOPIC NO CULTURE Routine 05/16/2025 12:17 AM CDT SODIUM URINE RANDOM Routine 05/16/2025 1 2:17 AM CDT UREA NITROGEN URINE RANDOM Routine 05/16/2025 12:17 AM CDT OSMOLALITY URINE Routine 05/16/2025 12:1 7 AM CDT CREATININE URINE RANDOM Routine 05/16/2025 12:17 AM CDT GLUCOSE - POINT OF CARE Routine 05/15/2025 11:24 PM CDT CBC W AUTO DIFFERENTIAL AM Draw 05/15/2025 10:57 PM CDT COMPREHENSIVE METABOLIC PANEL AM Draw 05/15/2025 10:57 PM CDT RENAL FUNCTION PANEL Timed 05/15/2025 10:57 PM CDT MAGNESIUM BLOOD Timed 05/15/2025 10:57 PM CDT MAGNESIUM BLOOD Timed 05/15/2025 10:57 PM CDT BILIRUBIN TOTAL+DIRECT BLOOD PANEL STAT 05/15/2025 8:[address] CHEST PE W ABD PELVIS W CONT STAT 05/15/2025 7:52 PM CDT Shortness of breath GLUCOSE - POINT OF CARE Routine 05/15/2025 7:50 PM CDT TROPONIN-I HIGH SENSITIVE REFLEX 1HOUR Timed 05/15/2025 4:06 PM CDT COMPREHENSIVE METABOLIC PANEL STAT 05/15/2025 4:06 PM CDT MAGNESIUM BLOOD STAT 05/15/2025 4:06 PM CDT TROPONIN-I HIGH SENSITIVE BASELINE + 1HR STAT 05/15/2025 2:54 PM CDT PT-INR STAT 05/15/2025 2:54 PM CDT CBC W AUTO DIFFERENTIAL STAT 05/15/2025 2:54 PM CDT B-TYPE NATRIURETIC PEPTIDE STAT 05/15/2025 2:54 PM CDT LIPASE BLOOD STAT 05/15/2025 2:54 PM CDT XR CHEST 2VW STAT 05/15/2025 2:41 PM CDT Shortness of breath EKG 12-LEAD STAT 05/15/2025 2:20 PM CDT Shortness of breath documented in this encounter Results * (ABNORMAL) GLUCOSE - POINT OF CARE (06/06/2025 11:18 AM CDT) Glucose WB/POC 273(H) 70 - 99 mg/dL 06/06/2025 11:22 AM CDT [facility] Specimen Type Arterial/C apillary 06/06/2025 11:22 AM CDT [facility] Blood BLOOD SPECIMEN / Unknown 06/06/2025 11:18 AM CDT 06/06/2025 11:22 AM CDT Result Dalton Burton MD LAB - POINT OF CARE ORDERABLES Final Result Performing Organization Address City/[facility] Co de Phone Number [facility] [address] [place] [id number], [facility] [phone] * (ABNORMAL) GLUCOSE - POINT OF CARE (06/06/2025 8:10 AM CDT) Glucose WB/POC 130(H) 70 - 99 mg/dL 06/06/2025 8:23 AM CDT [facility] Specimen Type Arterial/C apillary 06/06/2025 8:23 AM CDT [facility] Blood BLOOD SPECIMEN / Unknown 06/06/2025 8:10 AM CDT 06/06/2025 8:23 AM CDT us Jennifer Burton MD LAB - POINT OF CARE ORDERABLES Final Result [address] [address], [facility] [phone] * PHOSPHORUS BLOOD (06/06/2025 5:19 AM CDT) Pathologist [facility] [place] Phosphorus 3.5 2.9 - 5.1 mg/dL 06/06/2025 6:52 AM [facility] Blood BLOOD SPECIMEN / Unknown Lab Venipuncture / Unknown 06/06/2025 5:19 AM CDT 06/06/2025 6:29 AM CDT Lyndon Fishman MD LAB - CHEMISTRY ORDERABLES F inal Result Performing Organization Address [facility]/ZIP Co de Phone Number [address] [address], [facility] [phone] * (ABNORMAL) COMPREHENSIVE METABOLIC PANEL (06/06/2025 5:19 AM CDT) Pathologist [facility] [place] BUN 19 7 - 26 mg/dL 06/06/2025 6:52 AM [facility] Creatinine 0.70 0.56 - 0.96 mg/dL 06/06/2025 6:52 AM [facility] Sodium 133(L) 136 - 145 mmol/L 06/06/2025 6:52 AM [facility] Potassium 4.5 3.5 - 4.5 mmol/L 06/06/2025 6:52 AM [facility] Chloride 104 98 - 107 mmol/L 06/06/2025 6:52 AM [facility] CO2 25 22 - 29 mmol/L 06/06/2025 6:52 AM [facility] Glucose 115(H) 70 - 99 mg/dL 06/06/2025 6:52 AM [facility] Calcium 8.6 8.4 - 10.2 mg/dL 06/06/2025 6:52 AM [facility] Protein Total 6.1 6.0 - 8.3 g/dL 06/06/2025 6:52 AM [facility] Albumin 2.3(L) 3.4 - 5.0 g/dL 06/06/2025 6:52 AM [facility] Bilirubin Total 2.8(H) 0.2 - 1.2 mg/dL 06/06/2025 6:52 AM [facility] Alkaline Phosphatase 298(H) 40 - 150 U/L 06/06/2025 6:52 AM [facility] ALT 24 5 - 55 U/L 06/06/2025 6:52 AM [facility] AST 41(H) 5 - 34 U/L 06/06/2025 6:52 AM [facility] Anion Gap 4(L) 6 - 16 06/06/2025 6:52 AM [facility] BUN/Creatinine Ratio 27(H) 7 - 23 06/06/2025 6:52 AM [facility] Osmolality Calculated 279 275 - 295 mOsm/kg 06/06/2025 6:52 AM [facility] Albumin/Globulin Ratio 0.6(L) 1.1 - 2.3 06/06/2025 6:52 AM [facility] eGFR by CKD-EPI >90 >=90 mL/min/1.7 3 m2 06/06/2025 6:52 AM [facility] Comment:Estimated Glomerular Filtration Rate (eGFR) calculated using the CKD-EPI Creatinine Equation (2020), per the [employer] Kid[employer] and [place] [employer] recommendations. Blood BLOOD SPECIMEN / Unknown Lab Venipuncture / Unknown 06/06/2025 5:19 AM CDT 06/06/2025 6:29 AM T us Lyndon Fishman MD LAB - CHEMISTRY ORDERABLES F inal Result [facility] [address] [place] [address], [facility] [phone] * MAGNESIUM BLOOD (06/06/2025 5:19 AM CDT) Magnesium 1.9 1.6 - 2.6 mg/dL 06/06/2025 6:52 AM [facility] Blood BLOOD SPECIMEN / Unknown Lab Venipuncture / Unknown 06/06/2025 5:19 AM CDT 06/06/2025 6:29 AM CDT us Jefry Arizmendi MD LAB - CHEMISTRY ORDERABLES Fin al Result [facility] [address] [place] [address], [facility] [phone] * (ABNORMAL) CBC W/O DIFFERENTIAL (06/06/2025 5:19 AM CDT) [facility] WBC 3.7(L) 4.0 - 10.7 x10E9/L 06/06/2025 6:40 AM [facility] RBC Count 3.90 3.90 - 5.20 x10E12/L 06/06/2025 6:40 AM [facility] Hemoglobin 13.6 11.9 - 15.8 g/dL 06/06/2025 6:40 AM [facility] Hematocrit 40.3 34.8 - 46.1 % 06/06/2025 6:40 AM [facility] MCV 103.3(H) 80.0 - 98.0 fL 06/06/2025 6:40 AM [facility] MCH 34.9(H) 26.7 - 33.6 pg 06/06/2025 6:40 AM [facility] MCHC 33.7 31.7 - 36.3 g/dL 06/06/2025 6:40 AM [facility] RDW-CV 16.0(H) 11.3 - 14.8 % 06/06/2025 6:40 AM [facility] Platelet Count 254 150 - 420 x10E9/L 06/06/2025 6:40 AM [facility] MPV 10.0 7.8 - 11.4 fL 06/06/2025 6:40 AM [facility] Blood BLOOD SPECIMEN / Unknown Lab Venipuncture / Unknown 06/06/2025 5:19 AM CDT 06/06/2025 6:30 AM CDT us Jefry Arizmendi MD LAB - HEMATOLOGY ORDERABLES Fi nal Result [address] [address], [place] [phone] * (ABNORMAL) GLUCOSE - POINT OF CARE (06/05/2025 8:13 PM CDT) Glucose WB/POC 205(H) 70 - 99 mg/dL 06/05/2025 8:14 PM CDT [facility] Specimen Type Arterial/C apillary 06/05/2025 8:14 PM CDT [facility] Blood BLOOD SPECIMEN / Unknown 06/05/2025 8:13 PM CDT 06/05/2025 8:14 PM CDT Jennifer Burton MD LAB - POINT OF CARE ORDERABLES Final Result [address] [address], [place] [phone] * (ABNORMAL) GLUCOSE - POINT OF CARE (06/05/2025 5:45 PM CDT) Glucose WB/POC 119(H) 70 - 99 mg/dL 06/05/2025 5:49 PM CDT [facility] Specimen Type Arterial/C apillary 06/05/2025 5:49 PM CDT [facility] Blood BLOOD SPECIMEN / Unknown 06/05/2025 5:45 PM CDT 06/05/2025 5:49 PM CDT Jennifer Burton MD LAB - POINT OF CARE ORDERABLES Final Result [address] [address], [place] [phone] * (ABNORMAL) GLUCOSE - POINT OF CARE (06/05/2025 12:28 PM CDT) Glucose WB/POC 238(H) 70 - 99 mg/dL 06/05/2025 12:34 PM CDT [facility] Specimen Type Arterial/C apillary 06/05/2025 12:34 PM CDT [facility] Blood BLOOD SPECIMEN / Unknown 06/05/2025 12:28 PM CDT 06/05/2025 12:34 PM CDT us Jennifer Burton MD LAB - POINT OF CARE ORDERABLES Final Result Performing Organization Address City/[facility]/ZIP Co de Phone Number [address] [address], [place] [phone] * (ABNORMAL) GLUCOSE - POINT OF CARE (06/05/2025 8:53 AM CDT) Glucose WB/POC 114(H) 70 - 99 mg/dL 06/05/2025 8:58 AM CDT [facility] Specimen Type Arterial/C apillary 06/05/2025 8:58 AM CDT [facility] Blood BLOOD SPECIMEN / Unknown 06/05/2025 8:53 AM CDT 06/05/2025 8:58 AM CDT us Jennifer Burton MD LAB - POINT OF CARE ORDERABLES Final Result Performing Organization Address [facility]/ZIP Co de Phone Number [address] [address], [place] [phone] * PHOSPHORUS BLOOD (06/05/2025 4:41 AM CDT) Phosphorus 3.7 2.9 - 5.1 mg/dL 06/05/2025 7:28 AM CDT [facility] Blood BLOOD SPECIMEN / Unknown Lab Venipuncture / Unknown 06/05/2025 4:41 AM CDT 06/05/2025 6:30 AM CDT us Lyndon Fishman MD LAB - CHEMISTRY ORDERABLES F inal Result Performing Organization Address City/[facility]/ZIP Co de Phone Number [address] [address], [place] [phone] * (ABNORMAL) COMPREHENSIVE METABOLIC PANEL (06/05/2025 4:41 AM [facility]) BUN 20 7 - 26 mg/dL 06/05/2025 7:28 AM [facility] Creatinine 0.79 0.56 - 0.96 mg/dL 06/05/2025 7:28 AM [facility] Sodium 132(L) 136 - 145 mmol/L 06/05/2025 7:28 AM [facility] Potassium 4.5 3.5 - 4.5 mmol/L 06/05/2025 7:28 AM [facility] Chloride 104 98 - 107 mmol/L 06/05/2025 7:28 AM [facility] CO2 23 22 - 29 mmol/L 06/05/2025 7:28 AM [facility] Glucose 116(H) 70 - 99 mg/dL 06/05/2025 7:28 AM [facility] Calcium 8.7 8.4 - 10.2 mg/dL 06/05/2025 7:28 AM [facility] Protein Total 6.2 6.0 - 8.3 g/dL 06/05/2025 7:28 AM [facility] Albumin 2.3(L) 3.4 - 5.0 g/dL 06/05/2025 7:28 AM [facility] Bilirubin Total 3.0(H) 0.2 - 1.2 mg/dL 06/05/2025 7:28 AM [facility] Alkaline Phosphatase 294(H) 40 - 150 U/L 06/05/2025 7:28 AM [facility] ALT 26 5 - 55 U/L 06/05/2025 7:28 AM [facility] AST 43(H) 5 - 34 U/L 06/05/2025 7:28 AM [facility] Anion Gap 5(L) 6 - 16 06/05/2025 7:28 AM [facility] BUN/Creatinine Ratio 25(H) 7 - 23 06/05/2025 7:28 AM [facility] Osmolality Calculated 278 275 - 295 mOsm/kg 06/05/2025 7:28 AM T [facility] Albumin/Globulin Ratio 0.6(L) 1.1 - 2.3 06/05/2025 7:28 AM [facility] eGFR by CKD-EPI 84(L) >=90 mL/min/1.7 3 m2 06/05/2025 7:28 AM [facility] Comment:Estimated Glomerular Filtration Rate (eGFR) calculated using the CKD-EPI Creatinine Equation (2020), per the [employer] Foundation and [place] [employer] recommendations. Blood BLOOD SPECIMEN / Unknown Lab Venipuncture / Unknown 06/05/2025 4:41 AM CDT 06/05/2025 6:30 AM CDT Lyndon Fishman MD LAB - CHEMISTRY ORDERABLES F inal Result Performing Organization Address [facility]/ZIP Co de Phone Number [address] [address], [facility] [phone] * MAGNESIUM BLOOD (06/05/2025 4:41 AM CDT) Magnesium 1.8 1.6 - 2.6 mg/dL 06/05/2025 7:28 AM T [facility] Blood BLOOD SPECIMEN / Unknown Lab Venipuncture / Unknown 06/05/2025 4:41 AM CDT 06/05/2025 6:30 AM CDT Jefry Arizmendi MD LAB - CHEMISTRY ORDERABLES Fin al Result [address] [address], [place] [phone] * (ABNORMAL) CBC W/O DIFFERENTIAL (06/05/2025 4:41 AM CDT) WBC 4.2 4.0 - 10.7 x10E9/L 06/05/2025 6:53 AM [facility] RBC Count 3.85(L) 3.90 - 5.20 x10E12/L 06/05/2025 6:53 AM [facility] Hemoglobin 13.2 11.9 - 15.8 g/dL 06/05/2025 6:53 AM [facility] Hematocrit 40.2 34.8 - 46.1 % 06/05/2025 6:53 AM [facility] MCV 104.4(H) 80.0 - 98.0 fL 06/05/2025 6:53 AM [facility] MCH 34.3(H) 26.7 - 33.6 pg 06/05/2025 6:53 AM [facility] MCHC 32.8 31.7 - 36.3 g/dL 06/05/2025 6:53 AM [facility] RDW-CV 16.6(H) 11.3 - 14.8 % 06/05/2025 6:53 AM [facility] Platelet Count 251 150 - 420 x10E9/L 06/05/2025 6:53 AM [facility] MPV 10.2 7.8 - 11.4 fL 06/05/2025 6:53 AM [facility] Blood BLOOD SPECIMEN / Unknown Lab Venipuncture / Unknown 06/05/2025 4:41 AM CDT 06/05/2025 6:29 AM CDT Jefry Arizmendi MD LAB - HEMATOLOGY ORDERABLES Fi nal Result [address] [address], [facility] [phone] * (ABNORMAL) GLUCOSE - POINT OF CARE (06/04/2025 9:46 PM CDT) Glucose WB/POC 271(H) 70 - 99 mg/dL 06/04/2025 9:47 PM [facility] Specimen Type Arterial/C apillary 06/04/2025 9:47 PM [facility] Blood BLOOD SPECIMEN / Unknown 06/04/2025 9:46 PM CDT 06/04/2025 9:47 PM CDT us Jennifer Hoque MD LAB - POINT OF CARE ORDERABLES Final Result [address] [address], [place] [phone] * (ABNORMAL) GLUCOSE - POINT OF CARE (06/04/2025 8:49 PM CDT) Glucose WB/POC 235(H) 70 - 99 mg/dL 06/04/2025 8:50 PM CDT [facility] Specimen Type Arterial/C apillary 06/04/2025 8:50 PM CDT [facility] Blood BLOOD SPECIMEN / Unknown 06/04/2025 8:49 PM CDT 06/04/2025 8:50 PM CDT us Jennifer Burton MD LAB - POINT OF CARE ORDERABLES Final Result Performing Organization Address City/[facility]/ZIP Co de Phone Number [address] [address], [place] [phone] * (ABNORMAL) GLUCOSE - POINT OF CARE (06/04/2025 5:33 PM CDT) Glucose WB/POC 170(H) 70 - 99 mg/dL 06/04/2025 5:37 PM CDT [facility] Specimen Type Arterial/C apillary 06/04/2025 5:37 PM CDT [facility] Blood BLOOD SPECIMEN / Unknown 06/04/2025 5:33 PM CDT 06/04/2025 5:37 PM CDT us Jennifer Burton MD LAB - POINT OF CARE ORDERABLES Final Result [address] [address], [place] [phone] * (ABNORMAL) GLUCOSE - POINT OF CARE (06/04/2025 11:53 AM CDT) Glucose WB/POC 168(H) 70 - 99 mg/dL 06/04/2025 11:59 AM CDT [facility] Specimen Type Arterial/C apillary 06/04/2025 11:59 AM CDT [facility] Blood BLOOD SPECIMEN / Unknown 06/04/2025 11:53 AM CDT 06/04/2025 11:59 AM CDT us Jennifer Burton MD LAB - POINT OF CARE ORDERABLES Final Result Performing Organization Address City/[facility]/ZIP Co de Phone Number [address] [address], [place] [phone] * (ABNORMAL) GLUCOSE - POINT OF CARE (06/04/2025 8:51 AM CDT) Glucose WB/POC 116(H) 70 - 99 mg/dL 06/04/2025 8:55 AM CDT [facility] Specimen Type Arterial/C apillary 06/04/2025 8:55 AM CDT [facility] Blood BLOOD SPECIMEN / Unknown 06/04/2025 8:51 AM CDT 06/04/2025 8:55 AM CDT us Jennifer Burton MD LAB - POINT OF CARE ORDERABLES Final Result Performing Organization Address [facility]/ZIP Co de Phone Number [address] [address], [place] [phone] * PHOSPHORUS BLOOD (06/04/2025 4:10 AM CDT) Phosphorus 3.8 2.9 - 5.1 mg/dL 06/04/2025 7:43 AM CDT [facility] Blood BLOOD SPECIMEN / Unknown Lab Venipuncture / Unknown 06/04/2025 4:10 AM CDT 06/04/2025 6:59 AM CDT us Lyndon Fishman MD LAB - CHEMISTRY ORDERABLES F inal Result Performing Organization Address City/[facility]/ZIP Co de Phone Number [address] [address], [place] [phone] * (ABNORMAL) COMPREHENSIVE METABOLIC PANEL (06/04/2025 4:10 AM [facility]) BUN 20 7 - 26 mg/dL 06/04/2025 7:43 AM [facility] Creatinine 0.85 0.56 - 0.96 mg/dL 06/04/2025 7:43 AM [facility] Sodium 135(L) 136 - 145 mmol/L 06/04/2025 7:43 AM [facility] Potassium 4.6(H) 3.5 - 4.5 mmol/L 06/04/2025 7:43 AM [facility] Chloride 104 98 - 107 mmol/L 06/04/2025 7:43 AM [facility] CO2 23 22 - 29 mmol/L 06/04/2025 7:43 AM [facility] Glucose 111(H) 70 - 99 mg/dL 06/04/2025 7:43 AM [facility] Calcium 8.8 8.4 - 10.2 mg/dL 06/04/2025 7:43 AM [facility] Protein Total 6.5 6.0 - 8.3 g/dL 06/04/2025 7:43 AM [facility] Albumin 2.4(L) 3.4 - 5.0 g/dL 06/04/2025 7:43 AM [facility] Bilirubin Total 3.8(H) 0.2 - 1.2 mg/dL 06/04/2025 7:43 AM [facility] Alkaline Phosphatase 306(H) 40 - 150 U/L 06/04/2025 7:43 AM [facility] ALT 28 5 - 55 U/L 06/04/2025 7:43 AM [facility] AST 42(H) 5 - 34 U/L 06/04/2025 7:43 AM [facility] Anion Gap 8 6 - 16 06/04/2025 7:43 AM [facility] BUN/Creatinine Ratio 24(H) 7 - 23 06/04/2025 7:43 AM [facility] Osmolality Calculated 283 275 - 295 mOsm/kg 06/04/2025 7:43 AM CDT [facility] Albumin/Globulin Ratio 0.6(L) 1.1 - 2.3 06/04/2025 7:43 AM [facility] eGFR by CKD-EPI 77(L) >=90 mL/min/1.7 3 m2 06/04/2025 7:43 AM T [facility] Comment:Estimated Glomerular Filtration Rate (eGFR) calculated using the CKD-EPI Creatinine Equation (2020), per the [employer] and [place] [employer] recommendations. Blood BLOOD SPECIMEN / Unknown Lab Venipuncture / Unknown 06/04/2025 4:10 AM CDT 06/04/2025 6:59 AM CDT Lyndon Fishman MD LAB - CHEMISTRY ORDERABLES F inal Result Performing Organization Address [facility]/ZIP Co de Phone Number [address] [address], [facility] [phone] * MAGNESIUM BLOOD (06/04/2025 4:10 AM CDT) Magnesium 1.8 1.6 - 2.6 mg/dL 06/04/2025 7:43 AM T [facility] Blood BLOOD SPECIMEN / Unknown Lab Venipuncture / Unknown 06/04/2025 4:10 AM CDT 06/04/2025 6:59 AM CDT Jefry Arizmendi MD LAB - CHEMISTRY ORDERABLES Fin al Result [address] [address], [place] [phone] * (ABNORMAL) CBC W/O DIFFERENTIAL (06/04/2025 4:10 AM CDT) WBC 4.5 4.0 - 10.7 x10E9/L 06/04/2025 7:07 AM T [facility] RBC Count 3.95 3.90 - 5.20 x10E12/L 06/04/2025 7:07 AM [facility] Hemoglobin 13.4 11.9 - 15.8 g/dL 06/04/2025 7:07 AM [facility] Hematocrit 39.8 34.8 - 46.1 % 06/04/2025 7:07 AM [facility] MCV 100.8(H) 80.0 - 98.0 fL 06/04/2025 7:07 AM [facility] MCH 33.9(H) 26.7 - 33.6 pg 06/04/2025 7:07 AM [facility] MCHC 33.7 31.7 - 36.3 g/dL 06/04/2025 7:07 AM [facility] RDW-CV 16.8(H) 11.3 - 14.8 % 06/04/2025 7:07 AM [facility] Platelet Count 253 150 - 420 x10E9/L 06/04/2025 7:07 AM [facility] MPV 10.1 7.8 - 11.4 fL 06/04/2025 7:07 AM [facility] Blood BLOOD SPECIMEN / Unknown Lab Venipuncture / Unknown 06/04/2025 4:10 AM CDT 06/04/2025 6:59 AM CDT us Jefry Arizmendi MD LAB - HEMATOLOGY ORDERABLES Fi nal Result [facility] [address] [place] [address], [facility] [phone] * (ABNORMAL) GLUCOSE - POINT OF CARE (06/03/2025 9:36 PM CDT) Glucose WB/POC 170(H) 70 - 99 mg/dL 06/03/2025 9:41 PM T [facility] Specimen Type Arterial/C apillary 06/03/2025 9:41 PM T [facility] Blood BLOOD SPECIMEN / Unknown 06/03/2025 9:36 PM CDT 06/03/2025 9:41 PM CDT us Jennifer Burton MD LAB - POINT OF CARE ORDERABLES Final Result [address] [address], [place] [phone] * (ABNORMAL) GLUCOSE - POINT OF CARE (06/03/2025 5:08 PM CDT) Glucose WB/POC 147(H) 70 - 99 mg/dL 06/03/2025 5:13 PM CDT [facility] Specimen Type Arterial/C apillary 06/03/2025 5:13 PM CDT [facility] Blood BLOOD SPECIMEN / Unknown 06/03/2025 5:08 PM CDT 06/03/2025 5:13 PM CDT us Jennifer Burton MD LAB - POINT OF CARE ORDERABLES Final Result [address] [address], [place] [phone] * (ABNORMAL) GLUCOSE - POINT OF CARE (06/03/2025 12:54 PM CDT) Glucose WB/POC 125(H) 70 - 99 mg/dL 06/03/2025 12:59 PM CDT [facility] Specimen Type Arterial/C apillary 06/03/2025 12:59 PM CDT [facility] Blood BLOOD SPECIMEN / Unknown 06/03/2025 12:54 PM CDT 06/03/2025 12:59 PM CDT us Jennifer Burton MD LAB - POINT OF CARE ORDERABLES Final Result [address] [address], [place] [phone] * GLUCOSE - POINT OF CARE (06/03/2025 8:12 AM CDT) Glucose WB/POC 89 70 - 99 mg/dL 06/03/2025 8:16 AM CDT [facility] Specimen Type Arterial/C apillary 06/03/2025 8:16 AM CDT [facility] Blood BLOOD SPECIMEN / Unknown 06/03/2025 8:12 AM CDT 06/03/2025 8:16 AM CDT us Vamsi Rocha MD LAB - POINT OF CARE ORDERA BLES Final Result Performing Organization Address City/[facility]/ZIP Co de Phone Number [address] [address], [facility] [phone] * PHOSPHORUS BLOOD (06/03/2025 4:32 AM CDT) Phosphorus 4.2 2.9 - 5.1 mg/dL 06/03/2025 7:27 AM CDT [facility] Blood BLOOD SPECIMEN / Unknown Lab Venipuncture / Unknown 06/03/2025 4:32 AM CDT 06/03/2025 6:27 AM CDT us Lyndon Fishman MD LAB - CHEMISTRY ORDERABLES F inal Result [address] [address], [facility] [phone] * (ABNORMAL) COMPREHENSIVE METABOLIC PANEL (06/03/2025 4:32 AM CDT) BUN 18 7 - 26 mg/dL 06/03/2025 7:31 AM T [facility] Creatinine 0.80 0.56 - 0.96 mg/dL 06/03/2025 7:31 AM [facility] Sodium 137 136 - 145 mmol/L 06/03/2025 7:31 AM T [facility] Potassium 4.6(H) 3.5 - 4.5 mmol/L 06/03/2025 7:31 AM [facility] Chloride 105 98 - 107 mmol/L 06/03/2025 7:31 AM [facility] CO2 23 22 - 29 mmol/L 06/03/2025 7:31 AM T [facility] Glucose 76 70 - 99 mg/dL 06/03/2025 7:31 AM [facility] Calcium 9.1 8.4 - 10.2 mg/dL 06/03/2025 7:31 AM [facility] Protein Total 6.6 6.0 - 8.3 g/dL 06/03/2025 7:31 AM [facility] Albumin 2.4(L) 3.4 - 5.0 g/dL 06/03/2025 7:31 AM [facility] Bilirubin Total 3.7(H) 0.2 - 1.2 mg/dL 06/03/2025 7:31 AM [facility] Alkaline Phosphatase 277(H) 40 - 150 U/L 06/03/2025 7:31 AM [facility] ALT 32 5 - 55 U/L 06/03/2025 7:31 AM [facility] AST 52(H) 5 - 34 U/L 06/03/2025 7:31 AM [facility] Anion Gap 9 6 - 16 06/03/2025 7:31 AM [facility] BUN/Creatinine Ratio 23 7 - 23 06/03/2025 7:31 AM [facility] Osmolality Calculated 285 275 - 295 mOsm/kg 06/03/2025 7:31 AM [facility] Albumin/Globulin Ratio 0.6(L) 1.1 - 2.3 06/03/2025 7:31 AM [facility] eGFR by CKD-EPI 83(L) >=90 mL/min/1.7 3 m2 06/03/2025 7:31 AM [facility] Comment:Estimated Glomerular Filtration Rate (eGFR) calculated using the CKD-EPI Creatinine Equation (2020), per the [employer] and [place] [employer] recommendations. Blood BLOOD SPECIMEN / Unknown Lab Venipuncture / Unknown 06/03/2025 4:32 AM CDT 06/03/2025 6:27 AM [facility] us Lyndon Fishman MD LAB - CHEMISTRY ORDERABLES F inal Result [facility] [address] [phone], [facility] [phone] * MAGNESIUM BLOOD (06/03/2025 4:32 AM CDT) Magnesium 2.0 1.6 - 2.6 mg/dL 06/03/2025 7:31 AM [facility] Blood BLOOD SPECIMEN / Unknown Lab Venipuncture / Unknown 06/03/2025 4:32 AM CDT 06/03/2025 6:27 AM CDT us Jefry Arizmendi MD LAB - CHEMISTRY ORDERABLES Fin al Result [facility] [address] [place] [address], [facility] [phone] * (ABNORMAL) CBC W/O DIFFERENTIAL (06/03/2025 4:32 AM CDT) WBC 4.3 4.0 - 10.7 x10E9/L 06/03/2025 6:56 AM [facility] RBC Count 4.04 3.90 - 5.20 x10E12/L 06/03/2025 6:56 AM [facility] Hemoglobin 13.7 11.9 - 15.8 g/dL 06/03/2025 6:56 AM [facility] Hematocrit 43.3 34.8 - 46.1 % 06/03/2025 6:56 AM [facility] MCV 107.2(H) 80.0 - 98.0 fL 06/03/2025 6:56 AM [facility] MCH 33.9(H) 26.7 - 33.6 pg 06/03/2025 6:56 AM [facility] MCHC 31.6(L) 31.7 - 36.3 g/dL 06/03/2025 6:56 AM [facility] RDW-CV 17.0(H) 11.3 - 14.8 % 06/03/2025 6:56 AM [facility] Platelet Count 260 150 - 420 x10E9/L 06/03/2025 6:56 AM [facility] MPV 10.3 7.8 - 11.4 fL 06/03/2025 6:56 AM CDT [facility] Blood BLOOD SPECIMEN / Unknown Lab Venipuncture / Unknown 06/03/2025 4:32 AM CDT 06/03/2025 6:27 AM CDT Jefry Arizmendi MD LAB - HEMATOLOGY ORDERABLES Fi nal Result Performing Organization Address City/[facility]/ZIP Co de Phone Number [address] [address], [place] [phone] * (ABNORMAL) GLUCOSE - POINT OF CARE (06/02/2025 10:30 PM CDT) Glucose WB/POC 129(H) 70 - 99 mg/dL 06/03/2025 7:26 AM CDT [facility] Specimen Type Arterial/C apillary 06/03/2025 7:26 AM CDT [facility] Blood BLOOD SPECIMEN / Unknown 06/02/2025 10:30 PM CDT 06/03/2025 7:26 AM CDT Vamsi Rocha MD LAB - POINT OF CARE ORDERA BLES Final Result Performing Organization Address [facility] Co de Phone Number [address] [address], [place] [phone] * (ABNORMAL) GLUCOSE - POINT OF CARE (06/02/2025 9:04 PM CDT) Glucose WB/POC 161(H) 70 - 99 mg/dL 06/02/2025 9:09 PM CDT [facility] Specimen Type Arterial/C apillary 06/02/2025 9:09 PM CDT [facility] Blood BLOOD SPECIMEN / Unknown 06/02/2025 9:04 PM CDT 06/02/2025 9:09 PM CDT Vamsi Rocha MD LAB - POINT OF CARE ORDERA BLES Final Result [address] [address], [place] [phone] * (ABNORMAL) GLUCOSE - POINT OF CARE (06/02/2025 5:45 PM CDT) Glucose WB/POC 102(H) 70 - 99 mg/dL 06/02/2025 5:49 PM CDT [facility] Specimen Type Arterial/C apillary 06/02/2025 5:49 PM CDT [facility] Blood BLOOD SPECIMEN / Unknown 06/02/2025 5:45 PM CDT 06/02/2025 5:49 PM CDT Vamsi Rocha MD LAB - POINT OF CARE ORDERA BLES Final Result Performing Organization Address [facility]/ZIP Co de Phone Number [address] [address], [place] [phone] * (ABNORMAL) GLUCOSE - POINT OF CARE (06/02/2025 2:13 PM CDT) Glucose WB/POC 151(H) 70 - 99 mg/dL 06/02/2025 2:18 PM CDT [facility] Specimen Type Arterial/C apillary 06/02/2025 2:18 PM CDT [facility] Blood BLOOD SPECIMEN / Unknown 06/02/2025 2:13 PM CDT 06/02/2025 2:17 PM CDT Vamsi Rocha MD LAB - POINT OF CARE ORDERA BLES Final Result [address] [address], [place] [phone] * (ABNORMAL) GLUCOSE - POINT OF CARE (06/02/2025 11:47 AM CDT) Glucose WB/POC 186(H) 70 - 99 mg/dL 06/02/2025 12:00 PM CDT [facility] Specimen Type Arterial/C apillary 06/02/2025 12:00 PM CDT [facility] Blood BLOOD SPECIMEN / Unknown 06/02/2025 11:47 AM CDT 06/02/2025 12:00 PM CDT Vamsi Rocha MD LAB - POINT OF CARE ORDERA BLES Final Result Performing Organization Address City/[facility]/ZIP Co de Phone Number [address] [address], [place] [phone] * (ABNORMAL) GLUCOSE - POINT OF CARE (06/02/2025 8:26 AM CDT) Glucose WB/POC 120(H) 70 - 99 mg/dL 06/02/2025 8:30 AM CDT [facility] Specimen Type Arterial/C apillary 06/02/2025 8:30 AM CDT [facility] Blood BLOOD SPECIMEN / Unknown 06/02/2025 8:26 AM CDT 06/02/2025 8:30 AM CDT Vamsi Rocha MD LAB - POINT OF CARE ORDERA BLES Final Result Performing Organization Address [facility]/ZIP Co de Phone Number [address] [address], [place] [phone] * PHOSPHORUS BLOOD (06/02/2025 5:59 AM CDT) Phosphorus 4.0 2.9 - 5.1 mg/dL 06/02/2025 7:39 AM CDT [facility] Blood BLOOD SPECIMEN / Unknown Lab Venipuncture / Unknown 06/02/2025 5:59 AM CDT 06/02/2025 7:07 AM CDT Lyndon Fishman MD LAB - CHEMISTRY ORDERABLES F inal Result Performing Organization Address City/[facility]/ZIP Co de Phone Number [address] [address], [place] [phone] * (ABNORMAL) COMPREHENSIVE METABOLIC PANEL (06/02/2025 5:59 AM [facility]) BUN 22 7 - 26 mg/dL 06/02/2025 7:39 AM [facility] Creatinine 0.87 0.56 - 0.96 mg/dL 06/02/2025 7:39 AM [facility] Sodium 137 136 - 145 mmol/L 06/02/2025 7:39 AM [facility] Potassium 5.2(H) 3.5 - 4.5 mmol/L 06/02/2025 7:39 AM [facility] Chloride 104 98 - 107 mmol/L 06/02/2025 7:39 AM [facility] CO2 25 22 - 29 mmol/L 06/02/2025 7:39 AM [facility] Glucose 127(H) 70 - 99 mg/dL 06/02/2025 7:39 AM [facility] Calcium 9.2 8.4 - 10.2 mg/dL 06/02/2025 7:39 AM [facility] Protein Total 6.4 6.0 - 8.3 g/dL 06/02/2025 7:39 AM [facility] Albumin 2.4(L) 3.4 - 5.0 g/dL 06/02/2025 7:39 AM [facility] Bilirubin Total 3.9(H) 0.2 - 1.2 mg/dL 06/02/2025 7:39 AM [facility] Alkaline Phosphatase 265(H) 40 - 150 U/L 06/02/2025 7:39 AM [facility] ALT 34 5 - 55 U/L 06/02/2025 7:39 AM [facility] AST 50(H) 5 - 34 U/L 06/02/2025 7:39 AM [facility] Anion Gap 8 6 - 16 06/02/2025 7:39 AM [facility] BUN/Creatinine Ratio 25(H) 7 - 23 06/02/2025 7:39 AM [facility] Osmolality Calculated 289 275 - 295 mOsm/kg 06/02/2025 7:39 AM [facility] Albumin/Globulin Ratio 0.6(L) 1.1 - 2.3 06/02/2025 7:39 AM CDT [facility] eGFR by CKD-EPI 75(L) >=90 mL/min/1.7 3 m2 06/02/2025 7:39 AM CDT [facility] Comment:Estimated Glomerular Filtration Rate (eGFR) calculated using the CKD-EPI Creatinine Equation (2020), per the [employer] Kid[employer] and [place] [employer] recommendations. Blood BLOOD SPECIMEN / Unknown Lab Venipuncture / Unknown 06/02/2025 5:59 AM CDT 06/02/2025 7:07 AM CDT Lyndon Fishman MD LAB - CHEMISTRY ORDERABLES F inal Result [address] [address], [facility] [phone] * MAGNESIUM BLOOD (06/02/2025 5:59 AM CDT) Magnesium 2.0 1.6 - 2.6 mg/dL 06/02/2025 7:39 AM CDT [facility] Blood BLOOD SPECIMEN / Unknown Lab Venipuncture / Unknown 06/02/2025 5:59 AM CDT 06/02/2025 7:07 AM CDT Jefry Arizmendi MD LAB - CHEMISTRY ORDERABLES Fin al Result [address] [address], [facility] [phone] * (ABNORMAL) CBC W/O DIFFERENTIAL (06/02/2025 5:59 AM CDT) WBC 5.0 4.0 - 10.7 x10E9/L 06/02/2025 7:22 AM CDT [facility] RBC Count 3.99 3.90 - 5.20 x10E12/L 06/02/2025 7:22 AM CDT [facility] Hemoglobin 13.5 11.9 - 15.8 g/dL 06/02/2025 7:22 AM [facility] Hematocrit 42.2 34.8 - 46.1 % 06/02/2025 7:22 AM [facility] MCV 105.8(H) 80.0 - 98.0 fL 06/02/2025 7:22 AM [facility] MCH 33.8(H) 26.7 - 33.6 pg 06/02/2025 7:22 AM [facility] MCHC 32.0 31.7 - 36.3 g/dL 06/02/2025 7:22 AM [facility] RDW-CV 16.9(H) 11.3 - 14.8 % 06/02/2025 7:22 AM [facility] Platelet Count 290 150 - 420 x10E9/L 06/02/2025 7:22 AM [facility] MPV 9.9 7.8 - 11.4 fL 06/02/2025 7:22 AM [facility] Blood BLOOD SPECIMEN / Unknown Lab Venipuncture / Unknown 06/02/2025 5:59 AM CDT 06/02/2025 7:06 AM CDT us Jefry Arizmendi MD LAB - HEMATOLOGY ORDERABLES Fi nal Result [facility] [address] [place] [address], [facility] [phone] * (ABNORMAL) GLUCOSE - POINT OF CARE (06/01/2025 8:49 PM CDT) Pathologist [facility] [place] Glucose WB/POC 224(H) 70 - 99 mg/dL 06/01/2025 8:56 PM CDT [facility] Specimen Type Arterial/C apillary 06/01/2025 8:56 PM CDT [facility] Blood BLOOD SPECIMEN / Unknown 06/01/2025 8:49 PM CDT 06/01/2025 8:56 PM CDT us Vamsi Rocha MD LAB - POINT OF CARE ORDERA BLES Final Result [address] [address], [place] [phone] * (ABNORMAL) GLUCOSE - POINT OF CARE (06/01/2025 6:05 PM CDT) Glucose WB/POC 150(H) 70 - 99 mg/dL 06/01/2025 6:14 PM CDT [facility] Specimen Type Arterial/C apillary 06/01/2025 6:14 PM CDT [facility] Blood BLOOD SPECIMEN / Unknown 06/01/2025 6:05 PM CDT 06/01/2025 6:14 PM CDT Vamsi Rocha MD LAB - POINT OF CARE ORDERA BLES Final Result Performing Organization Address [facility]/ZIP Co de Phone Number [address] [address], [place] [phone] * (ABNORMAL) GLUCOSE - POINT OF CARE (06/01/2025 12:18 PM CDT) Glucose WB/POC 151(H) 70 - 99 mg/dL 06/01/2025 12:22 PM CDT [facility] Specimen Type Arterial/C apillary 06/01/2025 12:22 PM CDT [facility] Blood BLOOD SPECIMEN / Unknown 06/01/2025 12:18 PM CDT 06/01/2025 12:22 PM CDT Vamsi Rocha MD LAB - POINT OF CARE ORDERA BLES Final Result [address] [address], [place] [phone] * (ABNORMAL) GLUCOSE - POINT OF CARE (06/01/2025 8:43 AM CDT) Glucose WB/POC 181(H) 70 - 99 mg/dL [facility] Type Arterial/C apillary 06/01/2025 8:48 AM T [facility] Blood BLOOD SPECIMEN / Unknown 06/01/2025 8:43 AM CDT 06/01/2025 8:48 AM CDT Vamsi Rocha MD LAB - POINT OF CARE ORDERA BLES Final Result Performing Organization Address City/[facility]/ZIP Co de Phone Number [address] [address], [facility] [phone] * PHOSPHORUS BLOOD (06/01/2025 4:06 AM CDT) Phosphorus 4.7 2.9 - 5.1 mg/dL 06/01/2025 6:40 AM [facility] Blood BLOOD SPECIMEN / Unknown Lab Venipuncture / Unknown 06/01/2025 4:06 AM CDT 06/01/2025 5:59 AM CDT us Lyndon Fishman MD LAB - CHEMISTRY ORDERABLES F inal Result Performing Organization Address City/[facility]/ZIP Co de Phone Number [address] [address], [facility] [phone] * (ABNORMAL) COMPREHENSIVE METABOLIC PANEL (06/01/2025 4:06 AM CDT) BUN 28(H) 7 - 26 mg/dL 06/01/2025 6:40 AM [facility] Creatinine 0.92 0.56 - 0.96 mg/dL 06/01/2025 6:40 AM [facility] Sodium 139 136 - 145 mmol/L 06/01/2025 6:40 AM [facility] Potassium 4.7(H) 3.5 - 4.5 mmol/L 06/01/2025 6:40 AM [facility] Chloride 105 98 - 107 mmol/L 06/01/2025 6:40 AM [facility] CO2 27 22 - 29 mmol/L 06/01/2025 6:40 AM [facility] Glucose 144(H) 70 - 99 mg/dL 06/01/2025 6:40 AM [facility] Calcium 9.2 8.4 - 10.2 mg/dL 06/01/2025 6:40 AM [facility] Protein Total 6.4 6.0 - 8.3 g/dL 06/01/2025 6:40 AM [facility] Albumin 2.4(L) 3.4 - 5.0 g/dL 06/01/2025 6:40 AM [facility] Bilirubin Total 3.9(H) 0.2 - 1.2 mg/dL 06/01/2025 6:40 AM [facility] Alkaline Phosphatase 249(H) 40 - 150 U/L 06/01/2025 6:40 AM [facility] ALT 32 5 - 55 U/L 06/01/2025 6:40 AM [facility] AST 56(H) 5 - 34 U/L 06/01/2025 6:40 AM [facility] Anion Gap 7 6 - 16 06/01/2025 6:40 AM [facility] BUN/Creatinine Ratio 30(H) 7 - 23 06/01/2025 6:40 AM [facility] Osmolality Calculated 296(H) 275 - 295 mOsm/kg 06/01/2025 6:40 AM [facility] Albumin/Globulin Ratio 0.6(L) 1.1 - 2.3 06/01/2025 6:40 AM [facility] eGFR by CKD-EPI 70(L) >=90 mL/min/1.7 3 m2 06/01/2025 6:40 AM [facility] Comment:Estimated Glomerular Filtration Rate (eGFR) calculated using the CKD-EPI Creatinine Equation (2020), per the [employer]ney [employer] and [place] [employer] recommendations. Blood BLOOD SPECIMEN / Unknown Lab Venipuncture / Unknown 06/01/2025 4:06 AM CDT 06/01/2025 5:59 AM T us Lyndon Fishman MD LAB - CHEMISTRY ORDERABLES F inal Result [address] [address], [facility] [phone] * MAGNESIUM BLOOD (06/01/2025 4:06 AM CDT) [facility] Magnesium 2.2 1.6 - 2.6 mg/dL 06/01/2025 6:40 AM [facility] Blood BLOOD SPECIMEN / Unknown Lab Venipuncture / Unknown 06/01/2025 4:06 AM CDT 06/01/2025 5:59 AM CDT us Jefry Arizmendi MD LAB - CHEMISTRY ORDERABLES Fin al Result [address] [address], [facility] [phone] * (ABNORMAL) CBC W/O DIFFERENTIAL (06/01/2025 4:05 AM CDT) [facility] WBC 5.0 4.0 - 10.7 x10E9/L 06/01/2025 6:03 AM [facility] RBC Count 3.89(L) 3.90 - 5.20 x10E12/L 06/01/2025 6:03 AM [facility] Hemoglobin 13.2 11.9 - 15.8 g/dL 06/01/2025 6:03 AM [facility] Hematocrit 40.8 34.8 - 46.1 % 06/01/2025 6:03 AM [facility] MCV 104.9(H) 80.0 - 98.0 fL 06/01/2025 6:03 AM [facility] MCH 33.9(H) 26.7 - 33.6 pg 06/01/2025 6:03 AM [facility] MCHC 32.4 31.7 - 36.3 g/dL 06/01/2025 6:03 AM [facility] RDW-CV 17.1(H) 11.3 - 14.8 % 06/01/2025 6:03 AM [facility] Platelet Count 293 150 - 420 x10E9/L 06/01/2025 6:03 AM CDT [facility] MPV 9.8 7.8 - 11.4 fL 06/01/2025 6:03 AM CDT [facility] Blood BLOOD SPECIMEN / Unknown Lab Venipuncture / Unknown 06/01/2025 4:05 AM CDT 06/01/2025 5:59 AM CDT Jefry Arizmendi MD LAB - HEMATOLOGY ORDERABLES Fi nal Result [address] [address], [place] [phone] * (ABNORMAL) GLUCOSE - POINT OF CARE (05/31/2025 9:28 PM CDT) Glucose WB/POC 156(H) 70 - 99 mg/dL 05/31/2025 9:29 PM CDT [facility] Specimen Type Arterial/C apillary 05/31/2025 9:29 PM CDT [facility] Blood BLOOD SPECIMEN / Unknown 05/31/2025 9:28 PM CDT 05/31/2025 9:29 PM CDT Result [facility] Jennifer Burton MD LAB - POINT OF CARE ORDERABLES Final Result Performing Organization Address City/[facility]/ZIP Co de Phone Number [address] [address], [place] [phone] * (ABNORMAL) GLUCOSE - POINT OF CARE (05/31/2025 5:13 PM CDT) Glucose WB/POC 161(H) 70 - 99 mg/dL 05/31/2025 5:16 PM CDT [facility] Specimen Type Arterial/C apillary 05/31/2025 5:16 PM CDT [facility] Blood BLOOD SPECIMEN / Unknown 05/31/2025 5:13 PM CDT 05/31/2025 5:16 PM CDT us Jennifer Burton MD LAB - POINT OF CARE ORDERABLES Final Result [address] [address], [place] [phone] * (ABNORMAL) GLUCOSE - POINT OF CARE (05/31/2025 12:44 PM CDT) Glucose WB/POC 107(H) 70 - 99 mg/dL 05/31/2025 12:50 PM CDT [facility] Specimen Type Arterial/C apillary 05/31/2025 12:50 PM CDT [facility] Blood BLOOD SPECIMEN / Unknown 05/31/2025 12:44 PM CDT 05/31/2025 12:50 PM CDT Jennifer Burton MD LAB - POINT OF CARE ORDERABLES Final Result Performing Organization Address City/[facility]/ZIP Co de Phone Number [address] [address], [place] [phone] * (ABNORMAL) GLUCOSE - POINT OF CARE (05/31/2025 8:52 AM CDT) Glucose WB/POC 251(H) 70 - 99 mg/dL 05/31/2025 9:01 AM CDT [facility] Specimen Type Arterial/C apillary 05/31/2025 9:01 AM CDT [facility] Blood BLOOD SPECIMEN / Unknown 05/31/2025 8:52 AM CDT 05/31/2025 9:01 AM CDT us Mariah Yadav MD LAB - POINT OF CARE ORDERABLES F inal Result [address] [address], [place] [phone] * PHOSPHORUS BLOOD (05/31/2025 2:21 AM CDT) Phosphorus 4.0 2.9 - 5.1 mg/dL 05/31/2025 4:00 AM CDT [facility] Blood BLOOD SPECIMEN / Unknown Lab Venipuncture / Unknown 05/31/2025 2:21 AM CDT 05/31/2025 3:29 AM CDT Lyndon Fishman MD LAB - CHEMISTRY ORDERABLES F inal Result [facility] [address] [place] [address], [facility] [phone] * (ABNORMAL) COMPREHENSIVE METABOLIC PANEL (05/31/2025 2:21 AM CDT) BUN 28(H) 7 - 26 mg/dL 05/31/2025 4:00 AM [facility] Creatinine 0.96 0.56 - 0.96 mg/dL 05/31/2025 4:00 AM [facility] Sodium 136 136 - 145 mmol/L 05/31/2025 4:00 AM [facility] Potassium 4.5 3.5 - 4.5 mmol/L 05/31/2025 4:00 AM [facility] Chloride 102 98 - 107 mmol/L 05/31/2025 4:00 AM [facility] CO2 27 22 - 29 mmol/L 05/31/2025 4:00 AM [facility] Glucose 149(H) 70 - 99 mg/dL 05/31/2025 4:00 AM [facility] Calcium 9.1 8.4 - 10.2 mg/dL 05/31/2025 4:00 AM [facility] Protein Total 6.0 6.0 - 8.3 g/dL 05/31/2025 4:00 AM [facility] Albumin 2.3(L) 3.4 - 5.0 g/dL 05/31/2025 4:00 AM [facility] Bilirubin Total 3.5(H) 0.2 - 1.2 mg/dL 05/31/2025 4:00 AM [facility] Alkaline Phosphatase 258(H) 40 - 150 U/L 05/31/2025 4:00 AM [facility] ALT 35 5 - 55 U/L 05/31/2025 4:00 AM [facility] AST 54(H) 5 - 34 U/L 05/31/2025 4:00 AM [facility] Anion Gap 7 6 - 16 05/31/2025 4:00 AM [facility] BUN/Creatinine Ratio 29(H) 7 - 23 05/31/2025 4:00 AM [facility] Osmolality Calculated 290 275 - 295 mOsm/kg 05/31/2025 4:00 AM [facility] Albumin/Globulin Ratio 0.6(L) 1.1 - 2.3 05/31/2025 4:00 AM [facility] eGFR by CKD-EPI 66(L) >=90 mL/min/1.7 3 m2 05/31/2025 4:00 AM [facility] Comment:Estimated Glomerular Filtration Rate (eGFR) calculated using the CKD-EPI Creatinine Equation (2020), per the [employer] and [place] [employer] recommendations. Blood BLOOD SPECIMEN / Unknown Lab Venipuncture / Unknown 05/31/2025 2:21 AM CDT 05/31/2025 3:29 AM CDT us Lyndon Fishman MD LAB - CHEMISTRY ORDERABLES F inal Result [address] [address], [place] [phone] * MAGNESIUM BLOOD (05/31/2025 2:21 AM CDT) Magnesium 2.0 1.6 - 2.6 mg/dL 05/31/2025 4:00 AM T [facility] Blood BLOOD SPECIMEN / Unknown Lab Venipuncture / Unknown 05/31/2025 2:21 AM CDT 05/31/2025 3:29 AM CDT us Jefry Arizmendi MD LAB - CHEMISTRY ORDERABLES Fin al Result [address] [address], [place] [phone] * (ABNORMAL) CBC W/O DIFFERENTIAL (05/31/2025 2:21 AM CDT) [facility] WBC 5.7 4.0 - 10.7 x10E9/L 05/31/2025 3:40 AM [facility] RBC Count 3.72(L) 3.90 - 5.20 x10E12/L 05/31/2025 3:40 AM [facility] Hemoglobin 12.6 11.9 - 15.8 g/dL 05/31/2025 3:40 AM [facility] Hematocrit 38.2 34.8 - 46.1 % 05/31/2025 3:40 AM [facility] MCV 102.7(H) 80.0 - 98.0 fL 05/31/2025 3:40 AM [facility] MCH 33.9(H) 26.7 - 33.6 pg 05/31/2025 3:40 AM [facility] MCHC 33.0 31.7 - 36.3 g/dL 05/31/2025 3:40 AM [facility] RDW-CV 16.9(H) 11.3 - 14.8 % 05/31/2025 3:40 AM [facility] Platelet Count 301 150 - 420 x10E9/L 05/31/2025 3:40 AM [facility] MPV 9.7 7.8 - 11.4 fL 05/31/2025 3:40 AM [facility] Blood BLOOD SPECIMEN / Unknown Lab Venipuncture / Unknown 05/31/2025 2:21 AM CDT 05/31/2025 3:24 AM CDT us Jefry Arizmendi MD LAB - HEMATOLOGY ORDERABLES Fi nal Result [facility] [address] [address], [facility] [phone] * (ABNORMAL) GLUCOSE - POINT OF CARE (05/30/2025 8:24 PM CDT) Pathologist [facility] [place] Glucose WB/POC 206(H) 70 - 99 mg/dL 05/30/2025 8:29 PM CDT [facility] Specimen Type Arterial/C apillary 05/30/2025 8:29 PM CDT [facility] Blood BLOOD SPECIMEN / Unknown 05/30/2025 8:24 PM CDT 05/30/2025 8:29 PM CDT us Mariah Yadav MD LAB - POINT OF CARE ORDERABLES F inal Result [address] [address], [place] [phone] * FOLATE (05/30/2025 7:00 PM CDT) Folate 17.7 7.0 - 31.4 ng/mL 05/30/2025 9:47 PM CDT [facility] Blood BLOOD SPECIMEN / Unknown Lab Venipuncture / Unknown 05/30/2025 7:00 PM CDT 05/30/2025 8:44 PM CDT us Mariah Yadav MD LAB - CHEMISTRY ORDERABLES Final Result Performing Organization Address [facility]/ZIP Co de Phone Number [address] [address], [place] [phone] * (ABNORMAL) GLUCOSE - POINT OF CARE (05/30/2025 5:12 PM CDT) Glucose WB/POC 199(H) 70 - 99 mg/dL 05/30/2025 5:20 PM CDT [facility] Specimen Type Arterial/C apillary 05/30/2025 5:20 PM CDT [facility] Blood BLOOD SPECIMEN / Unknown 05/30/2025 5:12 PM CDT 05/30/2025 5:20 PM CDT us Mariah Yadav MD LAB - POINT OF CARE ORDERABLES F inal Result [address] [place] [address], [place] [phone] * (ABNORMAL) GLUCOSE - POINT OF CARE (05/30/2025 11:28 AM CDT) Glucose WB/POC 161(H) 70 - 99 mg/dL 05/30/2025 11:39 AM CDT [facility] Specimen Type Arterial/C apillary 05/30/2025 11:39 AM CDT [facility] Blood BLOOD SPECIMEN / Unknown 05/30/2025 11:28 AM CDT 05/30/2025 11:39 AM CDT us Mariah Yadav MD LAB - POINT OF CARE ORDERABLES F inal Result [address] [address], [place] [phone] * (ABNORMAL) GLUCOSE - POINT OF CARE (05/30/2025 8:44 AM CDT) Glucose WB/POC 119(H) 70 - 99 mg/dL 05/30/2025 8:54 AM CDT [facility] Specimen Type Arterial/C apillary 05/30/2025 8:54 AM CDT [facility] Blood BLOOD SPECIMEN / Unknown 05/30/2025 8:44 AM CDT 05/30/2025 8:54 AM CDT us Mariah Yadav MD LAB - POINT OF CARE ORDERABLES F inal Result [address] [address], [place] [phone] * (ABNORMAL) VITAMIN B12 (05/30/2025 3:05 AM CDT) Vitamin B12 1,455(H) 213 - 816 pg/mL 05/30/2025 9:57 AM CDT [facility] Blood BLOOD SPECIMEN / Unknown Lab Venipuncture / Unknown 05/30/2025 3:05 AM CDT 05/30/2025 4:14 AM CDT Mariah Yadav MD LAB - CHEMISTRY ORDERABLES Final Result Performing Organization Address City/[facility]/ZIP Co de Phone Number [address] [address], [facility] [phone] * PHOSPHORUS BLOOD (05/30/2025 3:05 AM CDT) Phosphorus 4.0 2.9 - 5.1 mg/dL 05/30/2025 4:44 AM [facility] Blood BLOOD SPECIMEN / Unknown Lab Venipuncture / Unknown 05/30/2025 3:05 AM CDT 05/30/2025 4:14 AM CDT Lyndon Fishman MD LAB - CHEMISTRY ORDERABLES F inal Result Performing Organization Address [facility] Co de Phone Number [address] [address], [facility] [phone] * (ABNORMAL) COMPREHENSIVE METABOLIC PANEL (05/30/2025 3:05 AM CDT) BUN 30(H) 7 - 26 mg/dL 05/30/2025 4:44 AM [facility] Creatinine 0.89 0.56 - 0.96 mg/dL 05/30/2025 4:44 AM [facility] Sodium 136 136 - 145 mmol/L 05/30/2025 4:44 AM [facility] Potassium 3.9 3.5 - 4.5 mmol/L 05/30/2025 4:44 AM [facility] Chloride 101 98 - 107 mmol/L 05/30/2025 4:44 AM [facility] CO2 30(H) 22 - 29 mmol/L 05/30/2025 4:44 AM [facility] Glucose 128(H) 70 - 99 mg/dL 05/30/2025 4:44 AM [facility] Calcium 9.0 8.4 - 10.2 mg/dL 05/30/2025 4:44 AM [facility] Protein Total 6.1 6.0 - 8.3 g/dL 05/30/2025 4:44 AM [facility] Albumin 2.2(L) 3.4 - 5.0 g/dL 05/30/2025 4:44 AM [facility] Bilirubin Total 3.9(H) 0.2 - 1.2 mg/dL 05/30/2025 4:44 AM [facility] Alkaline Phosphatase 220(H) 40 - 150 U/L 05/30/2025 4:44 AM [facility] ALT 30 5 - 55 U/L 05/30/2025 4:44 AM [facility] AST 55(H) 5 - 34 U/L 05/30/2025 4:44 AM [facility] Anion Gap 5(L) 6 - 16 05/30/2025 4:44 AM [facility] BUN/Creatinine Ratio 34(H) 7 - 23 05/30/2025 4:44 AM [facility] Osmolality Calculated 290 275 - 295 mOsm/kg 05/30/2025 4:44 AM [facility] Albumin/Globulin Ratio 0.6(L) 1.1 - 2.3 05/30/2025 4:44 AM [facility] eGFR by CKD-EPI 73(L) >=90 mL/min/1.7 3 m2 05/30/2025 4:44 AM [facility] Comment:Estimated Glomerular Filtration Rate (eGFR) calculated using the CKD-EPI Creatinine Equation (2020), per the [employer] and [place] [employer] recommendations. Blood BLOOD SPECIMEN / Unknown Lab Venipuncture / Unknown 05/30/2025 3:05 AM CDT 05/30/2025 4:14 AM CDT us Lyndon Fishman MD LAB - CHEMISTRY ORDERABLES F inal Result [facility] [address] [place] [address], [facility] [phone] * MAGNESIUM BLOOD (05/30/2025 3:05 AM CDT) Pathologist [facility] [place] Magnesium 2.0 1.6 - 2.6 mg/dL 05/30/2025 4:44 AM [facility] Blood BLOOD SPECIMEN / Unknown Lab Venipuncture / Unknown 05/30/2025 3:05 AM CDT 05/30/2025 4:14 AM CDT us Jefry Arizmendi MD LAB - CHEMISTRY ORDERABLES Fin al Result [facility] [address] [place] [address], [facility] [phone] * (ABNORMAL) CBC W/O DIFFERENTIAL (05/30/2025 3:05 AM CDT) [facility] WBC 5.4 4.0 - 10.7 x10E9/L 05/30/2025 4:25 AM [facility] RBC Count 3.75(L) 3.90 - 5.20 x10E12/L 05/30/2025 4:25 AM [facility] Hemoglobin 12.6 11.9 - 15.8 g/dL 05/30/2025 4:25 AM [facility] Hematocrit 38.1 34.8 - 46.1 % 05/30/2025 4:25 AM [facility] MCV 101.6(H) 80.0 - 98.0 fL 05/30/2025 4:25 AM [facility] MCH 33.6 26.7 - 33.6 pg 05/30/2025 4:25 AM [facility] MCHC 33.1 31.7 - 36.3 g/dL 05/30/2025 4:25 AM [facility] RDW-CV 17.2(H) 11.3 - 14.8 % 05/30/2025 4:25 AM [facility] Platelet Count 302 150 - 420 x10E9/L 05/30/2025 4:25 AM [facility] MPV 9.4 7.8 - 11.4 fL 05/30/2025 4:25 AM [facility] Blood BLOOD SPECIMEN / Unknown Lab Venipuncture / Unknown 05/30/2025 3:05 AM CDT 05/30/2025 4:15 AM CDT Jefry Arizmendi MD LAB - HEMATOLOGY ORDERABLES Fi nal Result [address] [address], [place] [phone] * (ABNORMAL) GLUCOSE - POINT OF CARE (05/29/2025 9:51 PM CDT) Glucose WB/POC 175(H) 70 - 99 mg/dL 05/29/2025 9:56 PM CDT [facility] Specimen Type Arterial/C apillary 05/29/2025 9:56 PM CDT [facility] Blood BLOOD SPECIMEN / Unknown 05/29/2025 9:51 PM CDT 05/29/2025 9:56 PM CDT Debi Joseph MD LAB - POINT OF CARE ORDERABLES F inal Result Performing Organization Address [facility]/ZIP Co de Phone Number [address] [address], [place] [phone] * (ABNORMAL) GLUCOSE - POINT OF CARE (05/29/2025 5:48 PM CDT) Glucose WB/POC 112(H) 70 - 99 mg/dL 05/29/2025 5:49 PM CDT [facility] Specimen Type Arterial/C apillary 05/29/2025 5:49 PM CDT [facility] Blood BLOOD SPECIMEN / Unknown 05/29/2025 5:48 PM CDT 05/29/2025 5:49 PM CDT Debi Joseph MD LAB - POINT OF CARE ORDERABLES F inal Result Performing Organization Address City/[facility]/ZIP Co de Phone Number [address] [address], [place] [phone] * (ABNORMAL) GLUCOSE - POINT OF CARE (05/29/2025 12:37 PM CDT) Glucose WB/POC 169(H) 70 - 99 mg/dL 05/29/2025 12:38 PM CDT [facility] Specimen Type Arterial/C apillary 05/29/2025 12:38 PM CDT [facility] Blood BLOOD SPECIMEN / Unknown 05/29/2025 12:37 PM CDT 05/29/2025 12:38 PM CDT us Debi Joseph MD LAB - POINT OF CARE ORDERABLES F inal Result [address] [address], [place] [phone] * (ABNORMAL) GLUCOSE - POINT OF CARE (05/29/2025 8:35 AM CDT) Glucose WB/POC 149(H) 70 - 99 mg/dL 05/29/2025 8:36 AM CDT [facility] Specimen Type Arterial/C apillary 05/29/2025 8:36 AM CDT [facility] Blood BLOOD SPECIMEN / Unknown 05/29/2025 8:35 AM CDT 05/29/2025 8:36 AM CDT us Debi Joseph MD LAB - POINT OF CARE ORDERABLES F inal Result [address] [address], [place] [phone] * PHOSPHORUS BLOOD (05/29/2025 3:31 AM CDT) Phosphorus 4.7 2.9 - 5.1 mg/dL 05/29/2025 5:26 AM CDT [facility] Blood BLOOD SPECIMEN / Unknown Lab Venipuncture / Unknown 05/29/2025 3:31 AM CDT 05/29/2025 4:42 AM CDT us Lyndon Fishman MD LAB - CHEMISTRY ORDERABLES F inal Result [facility] [address] [place] [address], [facility] [phone] * (ABNORMAL) COMPREHENSIVE METABOLIC PANEL (05/29/2025 3:31 AM CDT) BUN 29(H) 7 - 26 mg/dL 05/29/2025 5:28 AM [facility] Creatinine 0.85 0.56 - 0.96 mg/dL 05/29/2025 5:28 AM [facility] Sodium 141 136 - 145 mmol/L 05/29/2025 5:28 AM [facility] Potassium 3.8 3.5 - 4.5 mmol/L 05/29/2025 5:28 AM [facility] Chloride 103 98 - 107 mmol/L 05/29/2025 5:28 AM [facility] CO2 30(H) 22 - 29 mmol/L 05/29/2025 5:28 AM [facility] Glucose 156(H) 70 - 99 mg/dL 05/29/2025 5:28 AM [facility] Calcium 9.4 8.4 - 10.2 mg/dL 05/29/2025 5:28 AM [facility] Protein Total 5.8(L) 6.0 - 8.3 g/dL 05/29/2025 5:28 AM [facility] Albumin 2.0(L) 3.4 - 5.0 g/dL 05/29/2025 5:28 AM [facility] Bilirubin Total 3.7(H) 0.2 - 1.2 mg/dL 05/29/2025 5:28 AM [facility] Alkaline Phosphatase 203(H) 40 - 150 U/L 05/29/2025 5:28 AM [facility] ALT 27 5 - 55 U/L 05/29/2025 5:28 AM [facility] AST 49(H) 5 - 34 U/L 05/29/2025 5:28 AM [facility] Anion Gap 8 6 - 16 05/29/2025 5:28 AM [facility] BUN/Creatinine Ratio 34(H) 7 - 23 05/29/2025 5:28 AM [facility] Osmolality Calculated 301(H) 275 - 295 mOsm/kg 05/29/2025 5:28 AM [facility] Albumin/Globulin Ratio 0.5(L) 1.1 - 2.3 05/29/2025 5:28 AM [facility] eGFR by CKD-EPI 77(L) >=90 mL/min/1.7 3 m2 05/29/2025 5:28 AM [facility] Comment:Estimated Glomerular Filtration Rate (eGFR) calculated using the CKD-EPI Creatinine Equation (2020), per the [employer] and [place] [employer] recommendations. Blood BLOOD SPECIMEN / Unknown Lab Venipuncture / Unknown 05/29/2025 3:31 AM CDT 05/29/2025 4:42 AM CDT Lyndon Fishman MD LAB - CHEMISTRY ORDERABLES F inal Result [address] [address], [facility] [phone] * MAGNESIUM BLOOD (05/29/2025 3:31 AM CDT) Magnesium 2.1 1.6 - 2.6 mg/dL 05/29/2025 5:28 AM T [facility] Blood BLOOD SPECIMEN / Unknown Lab Venipuncture / Unknown 05/29/2025 3:31 AM CDT 05/29/2025 4:42 AM CDT us Jefry Arizmendi MD LAB - CHEMISTRY ORDERABLES Fin al Result [address] [address], [facility] [phone] * (ABNORMAL) CBC W/O DIFFERENTIAL (05/29/2025 3:31 AM CDT) WBC 4.4 4.0 - 10.7 x10E9/L 05/29/2025 4:50 AM [facility] RBC Count 3.79(L) 3.90 - 5.20 x10E12/L 05/29/2025 4:50 AM [facility] Hemoglobin 12.5 11.9 - 15.8 g/dL 05/29/2025 4:50 AM [facility] Hematocrit 38.7 34.8 - 46.1 % 05/29/2025 4:50 AM [facility] MCV 102.1(H) 80.0 - 98.0 fL 05/29/2025 4:50 AM [facility] MCH 33.0 26.7 - 33.6 pg 05/29/2025 4:50 AM [facility] MCHC 32.3 31.7 - 36.3 g/dL 05/29/2025 4:50 AM [facility] RDW-CV 17.3(H) 11.3 - 14.8 % 05/29/2025 4:50 AM [facility] Platelet Count 314 150 - 420 x10E9/L 05/29/2025 4:50 AM [facility] MPV 9.6 7.8 - 11.4 fL 05/29/2025 4:50 AM [facility] Blood BLOOD SPECIMEN / Unknown Lab Venipuncture / Unknown 05/29/2025 3:31 AM CDT 05/29/2025 4:40 AM CDT us Jefry Arizmendi MD LAB - HEMATOLOGY ORDERABLES Fi nal Result [address] [address], [facility] [phone] * (ABNORMAL) GLUCOSE - POINT OF CARE (05/28/2025 9:49 PM CDT) Glucose WB/POC 213(H) 70 - 99 mg/dL 05/28/2025 9:51 PM [facility] Specimen Type Arterial/C apillary 05/28/2025 9:51 PM [facility] Blood BLOOD SPECIMEN / Unknown 05/28/2025 9:49 PM CDT 05/28/2025 9:51 PM CDT Lyndon Fishman MD LAB - POINT OF CARE ORDERABL ES Final Result Performing Organization Address [facility]/ZIP Co de Phone Number [address] [address], [place] [phone] * (ABNORMAL) GLUCOSE - POINT OF CARE (05/28/2025 4:53 PM CDT) Glucose WB/POC 178(H) 70 - 99 mg/dL 05/28/2025 4:57 PM CDT [facility] Specimen Type Arterial/C apillary 05/28/2025 4:57 PM CDT [facility] Blood BLOOD SPECIMEN / Unknown 05/28/2025 4:53 PM CDT 05/28/2025 4:57 PM CDT us Lyndon Fishman MD LAB - POINT OF CARE ORDERABL ES Final Result Performing Organization Address City/[facility]/ZIP Co de Phone Number [address] [address], [place] [phone] * (ABNORMAL) COMPREHENSIVE METABOLIC PANEL (05/28/2025 10:21 AM CDT) BUN 31(H) 7 - 26 mg/dL 05/28/2025 11:36 AM [facility] Creatinine 0.81 0.56 - 0.96 mg/dL 05/28/2025 11:36 AM [facility] Sodium 141 136 - 145 mmol/L 05/28/2025 11:36 AM [facility] Potassium 3.9 3.5 - 4.5 mmol/L 05/28/2025 11:36 AM [facility] Chloride 102 98 - 107 mmol/L 05/28/2025 11:36 AM [facility] CO2 33(H) 22 - 29 mmol/L 05/28/2025 11:36 AM [facility] Glucose 183(H) 70 - 99 mg/dL 05/28/2025 11:36 AM [facility] Calcium 9.6 8.4 - 10.2 mg/dL 05/28/2025 11:36 AM [facility] Protein Total 6.5 6.0 - 8.3 g/dL 05/28/2025 11:36 AM [facility] Albumin 2.3(L) 3.4 - 5.0 g/dL 05/28/2025 11:36 AM [facility] Bilirubin Total 4.5(H) 0.2 - 1.2 mg/dL 05/28/2025 11:36 AM [facility] Alkaline Phosphatase 244(H) 40 - 150 U/L 05/28/2025 11:36 AM [facility] ALT 31 5 - 55 U/L 05/28/2025 11:36 AM [facility] AST 58(H) 5 - 34 U/L 05/28/2025 11:36 AM [facility] Anion Gap 6 6 - 16 05/28/2025 11:36 AM [facility] BUN/Creatinine Ratio 38(H) 7 - 23 05/28/2025 11:36 AM [facility] Osmolality Calculated 303(H) 275 - 295 mOsm/kg 05/28/2025 11:36 AM [facility] Albumin/Globulin Ratio 0.5(L) 1.1 - 2.3 05/28/2025 11:36 AM [facility] eGFR by CKD-EPI 82(L) >=90 mL/min/1.7 3 m2 05/28/2025 11:36 AM [facility] Comment:Estimated Glomerular Filtration Rate (eGFR) calculated using the CKD-EPI Creatinine Equation (2020), per the National Kidney Foundation and [place] [employer] recommendations. Blood BLOOD SPECIMEN / Unknown Lab Venipuncture / Unknown 05/28/2025 10:21 AM CDT 05/28/2025 10:52 AM CDT Lyndon Fishman MD LAB - CHEMISTRY ORDERABLES F inal Result [facility] [address] [place] [address], [facility] [phone] * ECHO COMPLETE W CONTRAST (05/28/2025 9:26 AM CDT) AV area index 1.008 cm /m SSM CV FUJI PACS Dimensionless Index 0.567 unitless SSM CV FUJI PACS Myocardial strain charge 2 unitless SSM CV FUJI PACS IVSd 2D 1.183 cm SSM CV FUJ I PACS LVIDd 5.651 cm SSM CV FUJ I PACS LVIDs 5.165 cm SSM CV FUJ I PACS LVOT diam 2.255 cm SSM CV FUJ I PACS LVPWd 1.226 cm SSM CV FUJ I PACS LV biplane EF 25.12 % SSM CV FUJI PACS LV A2C EF 28.384 % SSM CV FUJ I PACS LV A4C EF 21.953 % SSM CV FUJ I PACS LV EDV A2C 187.236 ml SSM CV FU JI PACS LV EDV A4C 167.805 ml SSM CV FU JI PACS LV ESV A2C 134.092 ml SSM CV FU JI PACS LV ESV A4C 130.966 ml SSM CV FU JI PACS LVOT pk grad 2.263 mmHg SSM CV FUJI PACS LVOT pk ramón 75.213 cm/s SSM CV F UJI PACS LVOT VTI 11.613 cm SSM CV FUJ I PACS RV-mark basal diam 4.917 cm SSM CV FUJI PACS RVIDd 4.969 cm SSM CV FUJ I PACS RVOT diam Doppler 3.206 cm SS M CV FUJI PACS RVOT pk ramón 60.526 cm/s SSM CV F UJI PACS RVOT VTI 9.109 cm SSM CV FUJ I PACS LA size 4.617 cm SSM CV FUJ I PACS RA area 30.984 cm SSM CV FUJI PACS AV area pk ramón 2.647 cm SSM CV FUJI PACS AV area cont VTI 2.264 cm SSM CV FUJI PACS AV pk grad 5.149 mmHg SSM CV FU JI PACS AV mn grad 3.182 mmHg SSM CV FU JI PACS AV pk ramón 113.459 cm/s SSM CV FUJ I PACS AV VTI 20.488 cm SSM CV FUJ I PACS MV E' lateral ramón 3.018 cm/s SS M CV FUJI PACS MV pk ramón regurg 372.598 cm/s SSM CV FUJI PACS AL VTI 63.389 cm SSM CV FUJ I PACS PV pk ramón 72.272 cm/s SSM CV FUJ I PACS PV VTI 12.497 cm SSM CV FUJ I PACS TAPSE 1.784 cm SSM CV FUJ I PACS TR pk ramón 230.1 cm/s SSM CV FUJ I PACS Ascending aorta 3.337 cm SSM CV FUJI PACS IVC Diam Expiration 2.693 cm SSM CV FUJI PACS Sinus of Valsalva 3.3 cm SS M CV FUJI PACS Anatomical Region Laterality Modality Ultrasound 05/28/2025 8:36 AM CDT Narrative 05/28/2025 5:08 PM CDT Summary * The left ventricle is mildly dilated with severely reduced systolic function and an estimated ejection fraction of 20-25% by visual estimate. Left ventricular wall motion is globally hypokinetic. * Right ventricle is moderately-severely dilated with grossly normal systolic function. * The left atrium is severely dilated. * The right atrium is severely dilated. * There is mild to moderate mitral valve regurgitation. * There is severe tricuspid valve regurgitation. * The pulmonary artery systolic pressure is mildly elevated, 39 mmHg. * There is a moderate posterior pericardial effusion. Patient Info Name: Loretta Penn Age: 64 years : 1960 Gender: Female Ht: 66 in Wt: 229 lb BSA: 2.24 m2 HR: 95 bpm BP: 108 / 59 mmHg Exam Date: 05/28/2025 8:36 AM Patient Status: I/P Study Site: [facility] Primary Location: [facility] EStudy Info Technical Quality: Adequate Exam Type: ECHO COMPLETE W CONTRAST Indications I48.91 - Atrial fibrillation, unspecified type (HCC) Procedure(s) * A complete 2D, spectral Doppler, color Doppler and M-Mode transthoracic echocardiogram was performed with an Ultrasound Enhancing Agent (UEA). Contrast/Agitated Saline Contrast / Saline: Definity Amount: 1.00 ml Administered By: Stuart Caldwell Reaction to Contrast: no Reason for Technically Difficult Study: patient supine, body habitus Staff Referring Physician: Jefry Arizmendi Ordering Provider: Jefry Arizmendi Attending Physician: Jefry Arizmendi Fellow: Buster Lima Account Services Associate: Stuart Caldwell Left Ventricle The left ventricle is mildly dilated. Left ventricular systolic function is severely reduced with an estimated ejection fraction of 20-25% by visual estimate. There is normal left ventricular wall thickness. The left ventricular mass is mildly increased with concentric hypertrophy. Left ventricular segmental wall motion is globally hypokinetic. The left ventricular diastolic function is indeterminate. Right Ventricle The right ventricle is moderately-severely dilated. Right ventricular systolic function is grossly normal. Left Atrium The left atrium is severely dilated. Right Atrium The right atrium is severely dilated. Aortic Valve The aortic valve is trileaflet and mildly calcified. There is no aortic valve stenosis. There is no aortic valve regurgitation. Pulmonic Valve The pulmonic valve is not well visualized. There is no pulmonic valve stenosis. There is mild pulmonic regurgitation. Mitral Valve The mitral valve is grossly normal and mildly thickened. There is no mitral valve stenosis. There is mild to moderate mitral valve regurgitation. Tricuspid Valve The tricuspid valve is grossly normal. There is no tricuspid valve stenosis. There is severe tricuspid valve regurgitation. The pulmonary artery systolic pressure is mildly elevated, 39 mmHg. Inferior Vena Cava The inferior vena cava is dilated (> 2.1 cm). There is < 50% collapse of the IVC upon inspiration with an estimated right atrial pressure of 15 mmHg. Pericardium/Pleural There is a moderate posterior pericardial effusion. Aorta The aortic root at the sinus of Valsalva is normal in size. The ascending aorta is normal in size. Measurements Left Ventricular Outflow Tract Name Value Normal LVOT 2D LVOT Diameter 2.3 cm LVOT Area 4.0 cm2 LVOT Doppler LVOT Peak Velocity 0.8 m/s LVOT Peak Gradient 2 mmHg LVOT Mean Velocity 51.72 cm/s LVOT Mean Gradient 1 mmHg LVOT VTI 11.6 cm LVOT VTI/AV VTI Ratio 0.6 LVOT Stroke Volume 46 ml LVOT Stroke Volume Index 21 ml/m2 35-58 LVOT CO 4.4 l/min LVOT CI 2.0 l/min/m2 Pulmonic Valve Name Value Normal PV 2D RVOT Diameter (2D) 3.2 cm 1.7-2.7 RVOT Doppler RVOT Peak Velocity 0.6 m/s RVOT Peak Gradient 1 mmHg RVOT Mean Gradient 1 mmHg PV Doppler PV Peak Velocity 0.7 m/s PV Peak Gradient 1 mmHg PV Mean Gradient 1 mmHg PV Area (Cont Eq VTI) 5.88 cm2 PV Area Index (Cont Eq VTI) 2.62 cm2/m2 PV Area (Cont Eq Ramón) 6.8 cm2 PV Area Index (Cont Eq Ramón) 3.01 cm2/m2 PV Regurgitation Doppler AL End Diastolic Gradient 10 mmHg Mitral Valve Name Value Normal MV Regurgitation Doppler MR Peak Gradient 56 mmHg MV Annular TDI MV Septal e' Velocity 4 cm/s >=8 MV Lateral e' Velocity 3 cm/s >=10 MV e' Average 4 cm/s Tricuspid Valve Name Value Normal TV Regurgitation Doppler TR Peak Velocity 2.3 m/s TR Peak Gradient 21 mmHg Estimated PAP/RSVP RA Pressure 15 mmHg <=5 PA Systolic Pressure 39 mmHg <35 RV Systolic Pressure 36 mmHg <36 TV Annular TDI TV Lateral Dinorah s' Velocity 10 cm/s 10-19 Pulmonary Vessels Name Value Normal Pulmonary Artery Doppler PA End Diastolic Pressure for AL 25 mmHg Aorta Name Value Normal Ascending Aorta Sinus of Valsalva Diameter 3.3 cm 2.4-3.6 Sinus of Valsalva Index 1.5 cm/m2 1.4-2.2 Asc Ao Diameter 3.3 cm 1.9-3.5 Asc Ao Diameter Index 1.5 cm/m2 1.0-2.2 Septae/Shunt/Generic Name Value Normal Qp/Qs Qp/Qs 1.6 Venous Name Value Normal IVC/SVC IVC Diameter 2.7 cm <=2.1 Aortic Valve Name Value Normal AV 2D/MM AV Cusp Sep (MM) 1.7 cm AV Doppler AV Peak Velocity 1.13 m/s AV Peak Gradient 5 mmHg AV Mean Gradient 3 mmHg AV VTI 20 cm AV Area (Cont Eq VTI) 2.26 cm2 >=2.00 AV Area (Cont Eq Ramón) 2.65 cm2 AV DI (VTI) 0.57 AV DI (Ramón) 0.66 AV Regurgitation 2D LVOT Area 3.99 cm2 Ventricles Name Value Normal LV Dimensions 2D/MM IVS Diastolic Thickness (2D) 1.2 cm 0.6-0.9 LVID Diastole (2D) 5.7 cm 3.8-5.2 LVPW Diastolic Thickness (2D) 1.2 cm 0.6-0.9 IVS Systolic Thickness (2D) 1.3 cm LVID Systole (2D) 5.2 cm 2.2-3.5 LVPW Systolic Thickness (2D) 1.3 cm LV Mass (2D Cubed) 296 g 67-162 LV Mass Index (2D Cubed) 132 g/m2 43-95 Relative Wall Thickness (2D) 0.43 <=0.42 LV Fractional Shortening/Ejection Fraction 2D/MM LV Fractional Shortening (2D) 9 % 27-45 LV EF (2D Teicholz) 19 % 54-74 LV Diastolic Volume (4C MOD) 168 ml LV EF (4C MOD) 22 % LV Diastolic Volume (2C MOD) 187 ml LV EF (2C MOD) 28 % LV Diastolic Volume (BP MOD) 182 ml 46-106 LV Diastolic Volume Index (BP MOD) 81 ml/m2 29-61 LV Systolic Volume (BP MOD) 136 ml 14-42 LV Systolic Volume Index (BP MOD) 61 ml/m2 8-24 LV EF (BP MOD) 25 % 54-74 LV Diastolic Length (4C) 8.9 cm LV Systolic Length (4C) 8.3 cm LV Stroke Volume (4C MOD) 37 ml RV Dimensions 2D/MM RVID Diastole (2D) 5.0 cm 2.5-3.5 RVID Systole (2D) 3.7 cm RV Basal Diastolic Dimension 4.9 cm 2.5-4.1 RV Diastolic Length (4C) 8.3 cm 5.9-8.3 TAPSE 1.8 cm >=1.7 Atria Name Value Normal LA Dimensions LA Dimension (2D) 4.6 cm 2.7-3.8 LA Dimen Index (2D) 2.1 cm/m2 RA Dimensions RA Area (4C) 31 cm2 <=18 RA Area (4C) Index 14 cm2/m2 Report Signatures Finalized by Jefry Arizmendi on 05/28/2025 05:08 PM Reviewed by Fellow Buster Lima on 05/28/2025 03:14 PM Procedure Note Jefry Arizmendi MD - 05/28/2025 Summary * The left ventricle is mildly dilated with severely reduced systolic function and an estimated ejection fraction of 20-25% by visual estimate.Left ventricular wall motion is globally hypokinetic. * Right ventricle is moderately-severely dilated with grossly normal systolic function. * The left atrium is severely dilated. * The right atrium is severely dilated. * There is mild to moderate mitral valve regurgitation. * There is severe tricuspid valve regurgitation. * The pulmonary artery systolic pressure is mildly elevated, 39 mmHg. * There is a moderate posterior pericardial effusion. Patient Info Name: Loretta Penn Age: 64 years : 1960 Gender: Female Ht: 66 in Wt: 229 lb BSA: 2.24 m2 HR: 95 bpm BP: 108 / 59 mmHg Exam Date: 05/28/2025 8:36 AM Patient Status: I/P Study Site: [facility] Primary Location: [facility] EStudy Info Technical Quality: Adequate Exam Type: ECHO COMPLETE W CONTRAST Indications I48.91 - Atrial fibrillation, unspecified type (HCC) Procedure(s) * A complete 2D, spectral Doppler, color Doppler and M-Modetransthoracic echocardiogram was performed with an Ultrasound Enhancing Agent (UEA). Contrast/Agitated Saline Contrast / Saline: Definity Amount: 1.00 ml Administered By: Stuart Caldwell Reaction to Contrast: no Reason for Technically Difficult Study: patient supine, bodyhabitus Staff Referring Physician: Jefry Arizmendi Ordering Provider: Jefry Arizmendi Attending Physician: Jefry Arizmendi Fellow: Buster Lima Account Services Associate: Stuart Caldwell Left Ventricle The left ventricle is mildly dilated. Left ventricular systolic functionis severely reduced with an estimated ejection fraction of 20-25% by visual estimate. There is normal left ventricular wall thickness. The left ventricular mass is mildly increased with concentric hypertrophy. Left ventricular segmental wall motion is globally hypokinetic. The left ventricular diastolic function is indeterminate. Right Ventricle The right ventricle is moderately-severely dilated. Right ventricular systolic function is grossly normal. Left Atrium The left atrium is severely dilated. Right Atrium The right atrium is severely dilated. Aortic Valve The aortic valve is trileaflet and mildly calcified. There is noaortic valve stenosis. There is no aortic valve regurgitation. Pulmonic Valve The pulmonic valve is not well visualized. There is no pulmonic valve stenosis. There is mild pulmonic regurgitation. Mitral Valve The mitral valve is grossly normal and mildly thickened. There is nomitral valve stenosis. There is mild to moderate mitral valve regurgitation. Tricuspid Valve The tricuspid valve is grossly normal. There is no tricuspid valvestenosis. There is severe tricuspid valve regurgitation. The pulmonary arterysystolic pressure is mildly elevated, 39 mmHg. Inferior Vena Cava The inferior vena cava is dilated (> 2.1 cm). There is < 50% collapse ofthe IVC upon inspiration with an estimated right atrial pressure of 15 mmHg. Pericardium/Pleural There is a moderate posterior pericardial effusion. Aorta The aortic root at the sinus of Valsalva is normal in size. Theascending aorta is normal in size. Measurements Left Ventricular Outflow Tract Name Value Normal LVOT 2D LVOT Diameter 2.3 cm LVOT Area 4.0 cm2 LVOT Doppler LVOT Peak Velocity 0.8 m/s LVOT Peak Gradient 2 mmHg LVOT Mean Velocity 51.72 cm/s LVOT Mean Gradient 1 mmHg LVOT VTI 11.6 cm LVOT VTI/AV VTI Ratio 0.6 LVOT Stroke Volume 46 ml LVOT Stroke Volume Index 21 ml/m2 35-58 LVOT CO 4.4 l/min LVOT CI 2.0 l/min/m2 Pulmonic Valve Name Value Normal PV 2D RVOT Diameter (2D) 3.2 cm 1.7-2.7 RVOT Doppler RVOT Peak Velocity 0.6 m/s RVOT Peak Gradient 1 mmHg RVOT Mean Gradient 1 mmHg PV Doppler PV Peak Velocity 0.7 m/s PV Peak Gradient 1 mmHg PV Mean Gradient 1 mmHg PV Area (Cont Eq VTI) 5.88 cm2 PV Area Index (Cont Eq VTI) 2.62 cm2/m2 PV Area (Cont Eq Ramón) 6.8 cm2 PV Area Index (Cont Eq Ramón) 3.01 cm2/m2 PV Regurgitation Doppler AL End Diastolic Gradient 10 mmHg Mitral Valve Name Value Normal MV Regurgitation Doppler MR Peak Gradient 56 mmHg MV Annular TDI MV Septal e' Velocity 4 cm/s >=8 MV Lateral e' Velocity 3 cm/s >=10 MV e' Average 4 cm/s Tricuspid Valve Name Value Normal TV Regurgitation Doppler TR Peak Velocity 2.3 m/s TR Peak Gradient 21 mmHg Estimated PAP/RSVP RA Pressure 15 mmHg <=5 PA Systolic Pressure 39 mmHg <35 RV Systolic Pressure 36 mmHg <36 TV Annular TDI TV Lateral Dinorah s' Velocity 10 cm/s 10-19 Pulmonary Vessels Name Value Normal Pulmonary Artery Doppler PA End Diastolic Pressure for AL 25 mmHg Aorta Name Value Normal Ascending Aorta Sinus of Valsalva Diameter 3.3 cm 2.4-3.6 Sinus of Valsalva Index 1.5 cm/m2 1.4-2.2 Asc Ao Diameter 3.3 cm 1.9-3.5 Asc Ao Diameter Index 1.5 cm/m2 1.0-2.2 Septae/Shunt/Generic Name Value Normal Qp/Qs Qp/Qs 1.6 Venous Name Value Normal IVC/SVC IVC Diameter 2.7 cm <=2.1 Aortic Valve Name Value Normal AV 2D/MM AV Cusp Sep (MM) 1.7 cm AV Doppler AV Peak Velocity 1.13 m/s AV Peak Gradient 5 mmHg AV Mean Gradient 3 mmHg AV VTI 20 cm AV Area (Cont Eq VTI) 2.26 cm2 >=2.00 AV Area (Cont Eq Ramón) 2.65 cm2 AV DI (VTI) 0.57 AV DI (Ramón) 0.66 AV Regurgitation 2D LVOT Area 3.99 cm2 Ventricles Name Value Normal LV Dimensions 2D/MM IVS Diastolic Thickness (2D) 1.2 cm 0.6-0.9 LVID Diastole (2D) 5.7 cm 3.8-5.2 LVPW Diastolic Thickness (2D) 1.2 cm 0.6-0.9 IVS Systolic Thickness (2D) 1.3 cm LVID Systole (2D) 5.2 cm 2.2-3.5 LVPW Systolic Thickness (2D) 1.3 cm LV Mass (2D Cubed) 296 g 67-162 LV Mass Index (2D Cubed) 132 g/m2 43-95 Relative Wall Thickness (2D) 0.43 <=0.42 LV Fractional Shortening/Ejection Fraction 2D/MM LV Fractional Shortening (2D) 9 % 27-45 LV EF (2D Teicholz) 19 % 54-74 LV Diastolic Volume (4C MOD) 168 ml LV EF (4C MOD) 22 % LV Diastolic Volume (2C MOD) 187 ml LV EF (2C MOD) 28 % LV Diastolic Volume (BP MOD) 182 ml 46-106 LV Diastolic Volume Index (BP MOD) 81 ml/m2 29-61 LV Systolic Volume (BP MOD) 136 ml 14-42 LV Systolic Volume Index (BP MOD) 61 ml/m2 8-24 LV EF (BP MOD) 25 % 54-74 LV Diastolic Length (4C) 8.9 cm LV Systolic Length (4C) 8.3 cm LV Stroke Volume (4C MOD) 37 ml RV Dimensions 2D/MM RVID Diastole (2D) 5.0 cm 2.5-3.5 RVID Systole (2D) 3.7 cm RV Basal Diastolic Dimension 4.9 cm 2.5-4.1 RV Diastolic Length (4C) 8.3 cm 5.9-8.3 TAPSE 1.8 cm >=1.7 Atria Name Value Normal LA Dimensions LA Dimension (2D) 4.6 cm 2.7-3.8 LA Dimen Index (2D) 2.1 cm/m2 RA Dimensions RA Area (4C) 31 cm2 <=18 RA Area (4C) Index 14 cm2/m2 Report Signatures Finalized by Jefry Arizmendi on 05/28/2025 05:08 PM Reviewed by Fellow Buster Lima on 05/28/2025 03:14 PM us Jefry Arizmendi MD ECHO CUPID Final Result * (ABNORMAL) GLUCOSE - POINT OF CARE (05/28/2025 6:45 AM CDT) Pathologist [facility] [place] Glucose WB/POC 171(H) 70 - 99 mg/dL 05/28/2025 6:50 AM CDT [facility] Specimen Type Arterial/C apillary 05/28/2025 6:50 AM CDT [facility] Blood BLOOD SPECIMEN / Unknown 05/28/2025 6:45 AM CDT 05/28/2025 6:50 AM CDT Lyndon Fishman MD LAB - POINT OF CARE ORDERABL ES Final Result [facility] [address] [place] [id number], [facility] [phone] * (ABNORMAL) RENAL FUNCTION PANEL (05/28/2025 6:34 AM CDT) BUN 35(H) 7 - 26 mg/dL 05/28/2025 7:18 AM CDT [facility] Creatinine 0.83 0.56 - 0.96 mg/dL 05/28/2025 7:18 AM T [facility] Sodium 142 136 - 145 mmol/L 05/28/2025 7:18 AM CDT [facility] Potassium 4.1 3.5 - 4.5 mmol/L 05/28/2025 7:18 AM T [facility] Chloride 102 98 - 107 mmol/L 05/28/2025 7:18 AM [facility] CO2 34(H) 22 - 29 mmol/L 05/28/2025 7:18 AM [facility] Glucose 165(H) 70 - 99 mg/dL 05/28/2025 7:18 AM [facility] Albumin 2.2(L) 3.4 - 5.0 g/dL 05/28/2025 7:18 AM [facility] Calcium 9.8 8.4 - 10.2 mg/dL 05/28/2025 7:18 AM [facility] Phosphorus 4.6 2.9 - 5.1 mg/dL 05/28/2025 7:18 AM [facility] Anion Gap 6 6 - 16 05/28/2025 7:18 AM [facility] BUN/Creatinine Ratio 42(H) 7 - 23 05/28/2025 7:18 AM [facility] Osmolality Calculated 306(H) 275 - 295 mOsm/kg 05/28/2025 7:18 AM [facility] eGFR by CKD-EPI 79(L) >=90 mL/min/1.7 3 m2 05/28/2025 7:18 AM [facility] Comment:Estimated Glomerular Filtration Rate (eGFR) calculated using the CKD-EPI Creatinine Equation (2020), per the [employer] and [employer] [employer] recommendations. Blood BLOOD SPECIMEN / Unknown Lab Venipuncture / Unknown 05/28/2025 6:34 AM CDT 05/28/2025 6:46 AM CDT Lyndon Fishman MD LAB - CHEMISTRY ORDERABLES F inal Result [facility] [address] [place] [address], [facility] [phone] * MAGNESIUM BLOOD (05/28/2025 6:34 AM CDT) Magnesium 2.1 1.6 - 2.6 mg/dL 05/28/2025 7:18 AM [facility] Blood BLOOD SPECIMEN / Unknown Lab Venipuncture / Unknown 05/28/2025 6:34 AM CDT 05/28/2025 6:46 AM CDT us Jefry Arizmendi MD LAB - CHEMISTRY ORDERABLES Fin al Result [facility] [address] [place] [address], [facility] [phone] * (ABNORMAL) CBC W/O DIFFERENTIAL (05/28/2025 6:33 AM CDT) WBC 4.8 4.0 - 10.7 x10E9/L 05/28/2025 7:13 AM [facility] RBC Count 3.90 3.90 - 5.20 x10E12/L 05/28/2025 7:13 AM [facility] Hemoglobin 13.1 11.9 - 15.8 g/dL 05/28/2025 7:13 AM [facility] Hematocrit 40.7 34.8 - 46.1 % 05/28/2025 7:13 AM [facility] MCV 104.4(H) 80.0 - 98.0 fL 05/28/2025 7:13 AM [facility] MCH 33.6 26.7 - 33.6 pg 05/28/2025 7:13 AM [facility] MCHC 32.2 31.7 - 36.3 g/dL 05/28/2025 7:13 AM [facility] RDW-CV 17.8(H) 11.3 - 14.8 % 05/28/2025 7:13 AM [facility] Platelet Count 322 150 - 420 x10E9/L 05/28/2025 7:13 AM [facility] MPV 9.4 7.8 - 11.4 fL 05/28/2025 7:13 AM [facility] NRBC 0.4(H) <=0.0 /100 WBC 05/28/2025 7:13 AM [facility] Blood BLOOD SPECIMEN / Unknown Lab Venipuncture / Unknown 05/28/2025 6:33 AM CDT 05/28/2025 6:47 AM CDT Jefry Arizmendi MD LAB - HEMATOLOGY ORDERABLES Fi nal Result Performing Organization Address City/[facility]/ZIP Co de Phone Number [address] [address], [place] [phone] * (ABNORMAL) GLUCOSE - POINT OF CARE (05/27/2025 10:28 PM CDT) Glucose WB/POC 241(H) 70 - 99 mg/dL 05/27/2025 10:33 PM CDT [facility] Specimen Type Arterial/C apillary 05/27/2025 10:33 PM CDT [facility] Blood BLOOD SPECIMEN / Unknown 05/27/2025 10:28 PM CDT 05/27/2025 10:33 PM CDT Lyndon Fishman MD LAB - POINT OF CARE ORDERABL ES Final Result Performing Organization Address [facility]/ZIP Co de Phone Number [address] [address], [place] [phone] * (ABNORMAL) GLUCOSE - POINT OF CARE (05/27/2025 4:38 PM CDT) Glucose WB/POC 130(H) 70 - 99 mg/dL 05/27/2025 4:44 PM CDT [facility] Specimen Type Arterial/C apillary 05/27/2025 4:44 PM CDT [facility] Blood BLOOD SPECIMEN / Unknown 05/27/2025 4:38 PM CDT 05/27/2025 4:44 PM CDT us Lyndon Fishman MD LAB - POINT OF CARE ORDERABL ES Final Result Performing Organization Address [facility]/ZIP Co de Phone Number [address] [address], [place] [phone] * SARS-COV-2 (COVID-19) RAPID (05/27/2025 2:39 PM CDT) Pathologist [facility] [place] COVID-19 PCR Not detected Not detected 05/27/20 25 3:18 PM CDT [facility] Microbiology SPECIMEN FROM NASOPHARYNGEAL STRUCTURE / Unknown Collection / Unknown 05/27/2025 2:39 PM CDT 05/27/2025 2:44 PM CDT Narrative [facility] - 05/27/2025 3:18 PM CDT The CepOfferial Xpert Xpress SARS-COV-2 has been authorized by the Food and Drug Administration (FDA) under an Emergency Use Authorization (EUA). This test has been validated in accordance with the FDA's guidance document Policy for Diagnostic Testing in Laboratories Certified to perform High Complexity Testing under CLIA prior to Emergency Use Authorization for Coronavirus Disease-2019 during the Public Health Emergency issued on December 08, 2019. FDA independent review of this validation is pending. This test is only authorized for the duration of the time the declaration that circumstances exist justifying the authorization of emergency use of in vitro diagnostic tests for detection of SARS-COV-2 virus and/or diagnosis of COVID-19 infection under 564(b) (1) of the Act. 21 U.S.C. 360bbb-3 (b) (1), unless the authorization is terminated or revoked sooner. Fact Sheets for this EUA assay are available upon request. Lyndon Fishman MD LAB - MICROBIOLOGY ORDERABLE S Final Result [address] [address], [facility] [phone] * (ABNORMAL) GLUCOSE - POINT OF CARE (05/27/2025 12:14 PM CDT) Pathologist [facility] [place] Glucose WB/POC 178(H) 70 - 99 mg/dL 05/27/2025 12:15 PM CDT [facility] Specimen Type Arterial/C apillary 05/27/2025 12:15 PM CDT [facility] Blood BLOOD SPECIMEN / Unknown 05/27/2025 12:14 PM CDT 05/27/2025 12:15 PM CDT us Lyndon Fishman MD LAB - POINT OF CARE ORDERABL ES Final Result [facility] [address] [place] [address], [facility] [phone] * (ABNORMAL) RENAL FUNCTION PANEL (05/27/2025 10:58 AM CDT) BUN 38(H) 7 - 26 mg/dL 05/27/2025 11:32 AM [facility] Creatinine 0.82 0.56 - 0.96 mg/dL 05/27/2025 11:32 AM [facility] Sodium 143 136 - 145 mmol/L 05/27/2025 11:32 AM [facility] Potassium 4.3 3.5 - 4.5 mmol/L 05/27/2025 11:32 AM [facility] Chloride 105 98 - 107 mmol/L 05/27/2025 11:32 AM [facility] CO2 31(H) 22 - 29 mmol/L 05/27/2025 11:32 AM [facility] Glucose 152(H) 70 - 99 mg/dL 05/27/2025 11:32 AM [facility] Albumin 2.2(L) 3.4 - 5.0 g/dL 05/27/2025 11:32 AM [facility] Calcium 10.0 8.4 - 10.2 mg/dL 05/27/2025 11:32 AM [facility] Phosphorus 3.9 2.9 - 5.1 mg/dL 05/27/2025 11:32 AM [facility] Anion Gap 7 6 - 16 05/27/2025 11:32 AM [facility] BUN/Creatinine Ratio 46(H) 7 - 23 05/27/2025 11:32 AM [facility] Osmolality Calculated 308(H) 275 - 295 mOsm/kg 05/27/2025 11:32 AM [facility] eGFR by CKD-EPI 80(L) >=90 mL/min/1.7 3 m2 05/27/2025 11:32 AM [facility] Comment:Estimated Glomerular Filtration Rate (eGFR) calculated using the CKD-EPI Creatinine Equation (2020), per the National Kidney Foundation and [place] [employer] recommendations. Blood BLOOD SPECIMEN / Unknown Venipuncture / Unknown 05/27/2025 10:58 AM CDT 05/27/2025 11:10 AM CDT Lyndon Fishman MD LAB - CHEMISTRY ORDERABLES F inal Result Performing Organization Address [facility]/ZIP Co de Phone Number [address] [address], [facility] [phone] * (ABNORMAL) GLUCOSE - POINT OF CARE (05/27/2025 9:29 AM CDT) Glucose WB/POC 176(H) 70 - 99 mg/dL 05/27/2025 9:30 AM CDT [facility] Specimen Type Arterial/C apillary 05/27/2025 9:30 AM CDT [facility] Blood BLOOD SPECIMEN / Unknown 05/27/2025 9:29 AM CDT 05/27/2025 9:30 AM CDT us Lyndon Fishman MD LAB - POINT OF CARE ORDERABL ES Final Result Performing Organization Address [facility] de Phone Number [address] [address], [facility] [phone] * MAGNESIUM BLOOD (05/27/2025 4:17 AM CDT) Magnesium 2.0 1.6 - 2.6 mg/dL 05/27/2025 5:21 AM CDT [facility] Comment:Hemolysis detected i n this specimen. Hemolysis is known to cause elevations in this analyte. Caution should be exercised in the interpretation of this result. Recommend repeat testing if clinically indicated. Blood BLOOD SPECIMEN / Unknown Venipuncture / Unknown 05/27/2025 4:17 AM CDT 05/27/2025 4:25 AM CDT Jefry Arizmendi MD LAB - CHEMISTRY ORDERABLES Fin al Result Performing Organization Address [facility]/ZIP Co de Phone Number [facility] [address] [place] [address], [facility] [phone] * (ABNORMAL) CBC W/O DIFFERENTIAL (05/27/2025 4:17 AM CDT) WBC 5.8 4.0 - 10.7 x10E9/L 05/27/2025 4:31 AM [facility] RBC Count 3.85(L) 3.90 - 5.20 x10E12/L 05/27/2025 4:31 AM [facility] Hemoglobin 12.9 11.9 - 15.8 g/dL 05/27/2025 4:31 AM [facility] Hematocrit 40.7 34.8 - 46.1 % 05/27/2025 4:31 AM [facility] MCV 105.7(H) 80.0 - 98.0 fL 05/27/2025 4:31 AM [facility] MCH 33.5 26.7 - 33.6 pg 05/27/2025 4:31 AM [facility] MCHC 31.7 31.7 - 36.3 g/dL 05/27/2025 4:31 AM [facility] RDW-CV 18.8(H) 11.3 - 14.8 % 05/27/2025 4:31 AM [facility] Platelet Count 273 150 - 420 x10E9/L 05/27/2025 4:31 AM [facility] MPV 10.1 7.8 - 11.4 fL 05/27/2025 4:31 AM [facility] NRBC 0.5(H) <=0.0 /100 WBC 05/27/2025 4:31 AM [facility] Blood BLOOD SPECIMEN / Unknown Venipuncture / Unknown 05/27/2025 4:17 AM CDT 05/27/2025 4:25 AM CDT Jefry Arizmendi MD LAB - HEMATOLOGY ORDERABLES Fi nal Result [facility] [address] [place] [address], [facility] [phone] * (ABNORMAL) RENAL FUNCTION PANEL (05/27/2025 4:17 AM [facility]) BUN 38(H) 7 - 26 mg/dL 05/27/2025 5:21 AM [facility] Creatinine 0.70 0.56 - 0.96 mg/dL 05/27/2025 5:21 AM [facility] Sodium 142 136 - 145 mmol/L 05/27/2025 5:21 AM [facility] Potassium 4.9(H) 3.5 - 4.5 mmol/L 05/27/2025 5:21 AM [facility] Comment:Hemolysis detected i n this specimen. Hemolysis may cause false elevations in potassium leading to pseudohyperkalemia or masked hypokalemia. Recommend repeat testing if clinically indicated. Chloride 102 98 - 107 mmol/L 05/27/2025 5:21 AM [facility] CO2 35(H) 22 - 29 mmol/L 05/27/2025 5:21 AM [facility] Glucose 114(H) 70 - 99 mg/dL 05/27/2025 5:21 AM [facility] Albumin 2.1(L) 3.4 - 5.0 g/dL 05/27/2025 5:21 AM [facility] Calcium 10.2 8.4 - 10.2 mg/dL 05/27/2025 5:21 AM [facility] Phosphorus 4.0 2.9 - 5.1 mg/dL 05/27/2025 5:21 AM [facility] Anion Gap 5(L) 6 - 16 05/27/2025 5:21 AM [facility] BUN/Creatinine Ratio >50(H) 7 - 23 05/10 5:21 AM [facility] Osmolality Calculated 304(H) 275 - 295 mOsm/kg 05/27/2025 5:21 AM [facility] eGFR by CKD-EPI >90 >=90 mL/min/1. 73 m2 05/27/2025 5:21 AM [facility] Comment:Estimated Glomerular Filtration Rate (eGFR) calculated using the CKD-EPI Creatinine Equation (2020), per the National Kidney Foundation and [place] [employer]ph[employer] recommendations. Blood BLOOD SPECIMEN / Unknown Venipuncture / Unknown 05/27/2025 4:17 AM CDT 05/27/2025 4:25 AM CDT Jefry Arizmendi MD LAB - CHEMISTRY ORDERABLES Fin al Result Performing Organization Address [facility]/ZIP Co de Phone Number [address] [address], [place] [phone] * (ABNORMAL) GLUCOSE - POINT OF CARE (05/26/2025 8:05 PM CDT) Glucose WB/POC 121(H) 70 - 99 mg/dL 05/26/2025 8:05 PM T [facility] Specimen Type Arterial/C apillary 05/26/2025 8:05 PM T [facility] Blood BLOOD SPECIMEN / Unknown 05/26/2025 8:05 PM CDT 05/26/2025 8:05 PM CDT Jefry Arizmendi MD LAB - POINT OF CARE ORDERABLES Final Result Performing Organization Address [facility] Co de Phone Number [address] [address], [place] [phone] * (ABNORMAL) RENAL FUNCTION PANEL (05/26/2025 4:05 PM CDT) BUN 45(H) 7 - 26 mg/dL 05/26/2025 4:44 PM CDT [facility] Creatinine 0.73 0.56 - 0.96 mg/dL 05/26/2025 4:44 PM T [facility] Sodium 146(H) 136 - 145 mmol/L 05/26/2025 4:44 PM T [facility] Potassium 4.3 3.5 - 4.5 mmol/L 05/26/2025 4:44 PM T [facility] Chloride 105 98 - 107 mmol/L 05/26/2025 4:44 PM [facility] CO2 33(H) 22 - 29 mmol/L 05/26/2025 4:44 PM [facility] Glucose 73 70 - 99 mg/dL 05/26/2025 4:44 PM [facility] Albumin 2.0(L) 3.4 - 5.0 g/dL 05/26/2025 4:44 PM [facility] Calcium 9.3 8.4 - 10.2 mg/dL 05/26/2025 4:44 PM [facility] Phosphorus 2.8(L) 2.9 - 5.1 mg/dL 05/26/2025 4:44 PM [facility] Anion Gap 8 6 - 16 05/26/2025 4:44 PM [facility] BUN/Creatinine Ratio >50(H) 7 - 23 05/26/2025 4:44 PM [facility] Osmolality Calculated 312(H) 275 - 295 mOsm/kg 05/26/2025 4:44 PM [facility] eGFR by CKD-EPI >90 >=90 mL/min/1.7 3 m2 05/26/2025 4:44 PM [facility] Comment:Estimated Glomerular Filtration Rate (eGFR) calculated using the CKD-EPI Creatinine Equation (2020), per the National Kidney Foundation and [place] [employer] recommendations. Blood BLOOD SPECIMEN / Unknown Venipuncture / Unknown 05/26/2025 4:05 PM CDT 05/26/2025 4:11 PM CDT us Jefry Arizmendi MD LAB - CHEMISTRY ORDERABLES Fin al Result [facility] [address] [place] [address], [facility] [phone] * GLUCOSE - POINT OF CARE (05/26/2025 4:03 PM CDT) Glucose WB/POC 85 70 - 99 mg/dL 05/26/2025 4:05 PM [facility] Specimen Type Venous 05/26/2025 4:05 PM [facility] Blood BLOOD SPECIMEN / Unknown 05/26/2025 4:03 PM CDT 05/26/2025 4:05 PM CDT Jefry Arizmendi MD LAB - POINT OF CARE ORDERABLES Final Result [address] [address], [place] [phone] * (ABNORMAL) GLUCOSE - POINT OF CARE (05/26/2025 12:16 PM CDT) Glucose WB/POC 242(H) 70 - 99 mg/dL 05/26/2025 12:17 PM CDT [facility] Specimen Type Arterial/C apillary 05/26/2025 12:17 PM CDT [facility] Blood BLOOD SPECIMEN / Unknown 05/26/2025 12:16 PM CDT 05/26/2025 12:17 PM CDT Jefry Arizmendi MD LAB - POINT OF CARE ORDERABLES Final Result Performing Organization Address City/[facility]/ZIP Co de Phone Number [address] [address], [place] [phone] * (ABNORMAL) GLUCOSE - POINT OF CARE (05/26/2025 8:58 AM CDT) Glucose WB/POC 231(H) 70 - 99 mg/dL 05/26/2025 8:59 AM CDT [facility] Specimen Type Arterial/C apillary 05/26/2025 8:59 AM CDT [facility] Blood BLOOD SPECIMEN / Unknown 05/26/2025 8:58 AM CDT 05/26/2025 8:59 AM CDT Jefry Arizmendi MD LAB - POINT OF CARE ORDERABLES Final Result [address] [address], [place] [phone] * MAGNESIUM BLOOD (05/26/2025 4:44 AM CDT) Magnesium 2.2 1.6 - 2.6 mg/dL 05/26/2025 5:13 AM [facility] Blood BLOOD SPECIMEN / Unknown Venipuncture / Unknown 05/26/2025 4:44 AM CDT 05/26/2025 4:47 AM CDT us Jefry Arizmendi MD LAB - CHEMISTRY ORDERABLES Fin al Result [facility] [address] [place] [address], [facility] [phone] * (ABNORMAL) CBC W/O DIFFERENTIAL (05/26/2025 4:44 AM CDT) WBC 6.8 4.0 - 10.7 x10E9/L 05/26/2025 5:09 AM [facility] RBC Count 3.82(L) 3.90 - 5.20 x10E12/L 05/26/2025 5:09 AM [facility] Hemoglobin 12.7 11.9 - 15.8 g/dL 05/26/2025 5:09 AM [facility] Hematocrit 40.3 34.8 - 46.1 % 05/26/2025 5:09 AM [facility] MCV 105.5(H) 80.0 - 98.0 fL 05/26/2025 5:09 AM [facility] MCH 33.2 26.7 - 33.6 pg 05/26/2025 5:09 AM [facility] MCHC 31.5(L) 31.7 - 36.3 g/dL 05/26/2025 5:09 AM [facility] RDW-CV 19.1(H) 11.3 - 14.8 % 05/26/2025 5:09 AM [facility] Platelet Count 270 150 - 420 x10E9/L 05/26/2025 5:09 AM [facility] MPV 9.5 7.8 - 11.4 fL 05/26/2025 5:09 AM [facility] NRBC 0.3(H) <=0.0 /100 WBC 05/26/2025 5:09 AM [facility] Blood BLOOD SPECIMEN / Unknown Venipuncture / Unknown 05/26/2025 4:44 AM CDT 05/26/2025 4:47 AM CDT us Jefry Arizmendi MD LAB - HEMATOLOGY ORDERABLES Fi nal Result [facility] [address] [place] [address], [facility] [phone] * (ABNORMAL) RENAL FUNCTION PANEL (05/26/2025 4:44 AM CDT) BUN 55(H) 7 - 26 mg/dL 05/26/2025 5:13 AM [facility] Creatinine 0.85 0.56 - 0.96 mg/dL 05/26/2025 5:13 AM [facility] Sodium 148(H) 136 - 145 mmol/L 05/26/2025 5:13 AM [facility] Potassium 4.7(H) 3.5 - 4.5 mmol/L 05/26/2025 5:13 AM [facility] Chloride 106 98 - 107 mmol/L 05/26/2025 5:13 AM [facility] CO2 35(H) 22 - 29 mmol/L 05/26/2025 5:13 AM [facility] Glucose 171(H) 70 - 99 mg/dL 05/26/2025 5:13 AM [facility] Albumin 2.2(L) 3.4 - 5.0 g/dL 05/26/2025 5:13 AM [facility] Calcium 9.8 8.4 - 10.2 mg/dL 05/26/2025 5:13 AM [facility] Phosphorus 3.4 2.9 - 5.1 mg/dL 05/26/2025 5:13 AM [facility] Anion Gap 7 6 - 16 05/26/2025 5:13 AM [facility] BUN/Creatinine Ratio >50(H) 7 - 23 05/26/2025 5:13 AM [facility] Osmolality Calculated 325(H) 275 - 295 mOsm/kg 05/26/2025 5:13 AM [facility] eGFR by CKD-EPI 77(L) >=90 mL/min/1.7 3 m2 05/26/2025 5:13 AM [facility] Comment:Estimated Glomerular Filtration Rate (eGFR) calculated using the CKD-EPI Creatinine Equation (2020), per the [employer] Kidney Foundation and [place] [employer] recommendations. Blood BLOOD SPECIMEN / Unknown Venipuncture / Unknown 05/26/2025 4:44 AM CDT 05/26/2025 4:47 AM CDT Jefry Arizmendi MD LAB - CHEMISTRY ORDERABLES Fin al Result [address] [address], [place] [phone] * (ABNORMAL) GLUCOSE - POINT OF CARE (05/26/2025 4:43 AM CDT) Glucose WB/POC 176(H) 70 - 99 mg/dL 05/26/2025 4:44 AM [facility] Specimen Type Venous 05/26/2025 4:44 AM T [facility] Blood BLOOD SPECIMEN / Unknown 05/26/2025 4:43 AM CDT 05/26/2025 4:44 AM CDT us Jefry Arizmendi MD LAB - POINT OF CARE ORDERABLES Final Result [address] [address], [place] [phone] * (ABNORMAL) GLUCOSE - POINT OF CARE (05/26/2025 12:39 AM CDT) Glucose WB/POC 117(H) 70 - 99 mg/dL 05/26/2025 12:40 AM T [facility] Specimen Type Arterial/C apillary 05/26/2025 12:40 AM CDT [facility] Blood BLOOD SPECIMEN / Unknown 05/26/2025 12:39 AM CDT 05/26/2025 12:40 AM CDT us Jefry Arizmendi MD LAB - POINT OF CARE ORDERABLES Final Result [facility] [address] [place] [address], [facility] [phone] * XR Abdomen Kub Portable (05/25/2025 9:00 PM CDT) Anatomical Region Laterality Modality Abdomen Digital Radiogra phy 05/25/2025 9:09 PM CDT Narrative 05/26/2025 2:33 AM CDT PROCEDURE: XR ABDOMEN KUB PORTABLE, DATE/TIME OF EXAM: 05/25/2025 9:00 PM, LOCATION [facility] INDICATION: R57.8: Other shock (HCC) ADDITIONAL CLINICAL INFORMATION: Ordering Provider Reason For Exam: NG placement COMPARISON: CT abdomen pelvis dated 05/15/2025 and abdominal radiograph dated 05/23/2025. FINDINGS/IMPRESSION: Enteric tube courses below the diaphragm with the distal tip superimposing the distal fundus region. Report dictated by Sven Flores MD, ([facility] resident). > Dictated by Instrument Technologist I, Jimbo Elmore MD have personally reviewed and interpreted this examination/study. > Interpreting Provider: Jimbo Elmore MD on 05/26/2025 2:33 AM Procedure Note Jimbo Elmore MD - 05/26/2025 PROCEDURE: XR ABDOMEN KUB PORTABLE, DATE/TIME OF EXAM: 05/25/2025 9:00PM, LOCATION [facility] INDICATION: R57.8: Other shock (HCC) ADDITIONAL CLINICAL INFORMATION: Ordering Provider Reason For Exam: NG placement COMPARISON: CT abdomen pelvis dated 05/15/2025 and abdominal radiographdated 05/23/2025. FINDINGS/IMPRESSION: Enteric tube courses below the diaphragm with the distal tipsuperimposing the distal fundus region. Report dictated by Sven Flores MD, ([facility] resident). > Dictated by Instrument Technologist I, Jimbo Elmore MD have personally reviewed and interpreted this examination/study. > Interpreting Provider: Jimbo Elmore MD on 05/26/2025 2:33 AM Jefry Arizmendi MD DIAGNOSTIC IMAGING ORDERABLES Final Result * (ABNORMAL) GLUCOSE - POINT OF CARE (05/25/2025 8:27 PM CDT) Pathologist [facility] [place] Glucose WB/POC 184(H) 70 - 99 mg/dL 05/25/2025 8:28 PM CDT [facility] Specimen Type Arterial/C apillary 05/25/2025 8:28 PM [facility] Blood BLOOD SPECIMEN / Unknown 05/25/2025 8:27 PM CDT 05/25/2025 8:28 PM CDT us Jefry Arizmendi MD LAB - POINT OF CARE ORDERABLES Final Result [facility] [address] [place] [address], [facility] [phone] * (ABNORMAL) RENAL FUNCTION PANEL (05/25/2025 5:21 PM CDT) Pathologist [facility] [place] BUN 59(H) 7 - 26 mg/dL 05/25/2025 6:01 PM [facility] Creatinine 0.91 0.56 - 0.96 mg/dL 05/25/2025 6:01 PM [facility] Sodium 147(H) 136 - 145 mmol/L 05/25/2025 6:01 PM [facility] Potassium 4.6(H) 3.5 - 4.5 mmol/L 05/25/2025 6:01 PM [facility] Chloride 105 98 - 107 mmol/L 05/25/2025 6:01 PM [facility] CO2 34(H) 22 - 29 mmol/L 05/25/2025 6:01 PM [facility] Glucose 231(H) 70 - 99 mg/dL 05/25/2025 6:01 PM [facility] Albumin 2.2(L) 3.4 - 5.0 g/dL 05/25/2025 6:01 PM [facility] Calcium 9.6 8.4 - 10.2 mg/dL 05/25/2025 6:01 PM [facility] Phosphorus 4.2 2.9 - 5.1 mg/dL 05/25/2025 6:01 PM [facility] Anion Gap 8 6 - 16 05/25/2025 6:01 PM [facility] BUN/Creatinine Ratio >50(H) 7 - 23 05/25/2025 6:01 PM [facility] Osmolality Calculated 328(H) 275 - 295 mOsm/kg 05/25/2025 6:01 PM [facility] eGFR by CKD-EPI 71(L) >=90 mL/min/1.7 3 m2 05/25/2025 6:01 PM [facility] Comment:Estimated Glomerular Filtration Rate (eGFR) calculated using the CKD-EPI Creatinine Equation (2020), per the [employer] and [place] [employer] recommendations. Blood BLOOD SPECIMEN / Unknown Venipuncture / Unknown 05/25/2025 5:21 PM CDT 05/25/2025 5:29 PM CDT Jefry Arizmendi MD LAB - CHEMISTRY ORDERABLES Fin al Result [facility] [address] [place] [id number], [facility] [phone] * (ABNORMAL) GLUCOSE - POINT OF CARE (05/25/2025 5:14 PM CDT) Pathologist [facility] [place] Glucose WB/POC 231(H) 70 - 99 mg/dL 05/25/2025 5:15 PM CDT [facility] Specimen Type Venous 05/25/2025 5:15 PM T [facility] Blood BLOOD SPECIMEN / Unknown 05/25/2025 5:14 PM CDT 05/25/2025 5:15 PM CDT Jefry Arizmendi MD LAB - POINT OF CARE ORDERABLES Final Result [address] [address], [place] [phone] * (ABNORMAL) GLUCOSE - POINT OF CARE (05/25/2025 11:49 AM CDT) Glucose WB/POC 242(H) 70 - 99 mg/dL 05/25/2025 11:50 AM CDT [facility] Specimen Type Arterial/C apillary 05/25/2025 11:50 AM CDT [facility] Blood BLOOD SPECIMEN / Unknown 05/25/2025 11:49 AM CDT 05/25/2025 11:50 AM CDT Jefry Arizmendi MD LAB - POINT OF CARE ORDERABLES Final Result Performing Organization Address City/[facility]/ZIP Co de Phone Number [address] [address], [facility] [phone] * (ABNORMAL) GLUCOSE - POINT OF CARE (05/25/2025 8:54 AM CDT) Glucose WB/POC 190(H) 70 - 99 mg/dL 05/25/2025 8:55 AM CDT [facility] Specimen Type Arterial/C apillary 05/25/2025 8:55 AM CDT [facility] Blood BLOOD SPECIMEN / Unknown 05/25/2025 8:54 AM CDT 05/25/2025 8:55 AM CDT us Jefry Arizmendi MD LAB - POINT OF CARE ORDERABLES Final Result [address] [address], [place] [phone] * MAGNESIUM BLOOD (05/25/2025 5:37 AM CDT) Magnesium 2.2 1.6 - 2.6 mg/dL 05/25/2025 6:26 AM CDT [facility] Blood BLOOD SPECIMEN / Unknown Venipuncture / Unknown 05/25/2025 5:37 AM CDT 05/25/2025 5:46 AM CDT us Jefry Arizmendi MD LAB - CHEMISTRY ORDERABLES Fin al Result [facility] [address] [place] [address], [facility] [phone] * (ABNORMAL) RENAL FUNCTION PANEL (05/25/2025 5:37 AM CDT) BUN 54(H) 7 - 26 mg/dL 05/25/2025 6:26 AM [facility] Creatinine 0.92 0.56 - 0.96 mg/dL 05/25/2025 6:26 AM [facility] Sodium 145 136 - 145 mmol/L 05/25/2025 6:26 AM [facility] Potassium 3.9 3.5 - 4.5 mmol/L 05/25/2025 6:26 AM [facility] Chloride 105 98 - 107 mmol/L 05/25/2025 6:26 AM [facility] CO2 34(H) 22 - 29 mmol/L 05/25/2025 6:26 AM [facility] Glucose 155(H) 70 - 99 mg/dL 05/25/2025 6:26 AM [facility] Albumin 2.1(L) 3.4 - 5.0 g/dL 05/25/2025 6:26 AM [facility] Calcium 9.3 8.4 - 10.2 mg/dL 05/25/2025 6:26 AM [facility] Phosphorus 2.7(L) 2.9 - 5.1 mg/dL 05/25/2025 6:26 AM [facility] Anion Gap 6 6 - 16 05/25/2025 6:26 AM [facility] BUN/Creatinine Ratio >50(H) 7 - 23 05/25/2025 6:26 AM [facility] Osmolality Calculated 318(H) 275 - 295 mOsm/kg 05/25/2025 6:26 AM [facility] eGFR by CKD-EPI 70(L) >=90 mL/min/1.7 3 m2 05/25/2025 6:26 AM [facility] Comment:Estimated Glomerular Filtration Rate (eGFR) calculated using the CKD-EPI Creatinine Equation (2020), per the [employer] and [place] [employer] recommendations. Blood BLOOD SPECIMEN / Unknown Venipuncture / Unknown 05/25/2025 5:37 AM CDT 05/25/2025 5:46 AM CDT us Jefry Arizmendi MD LAB - CHEMISTRY ORDERABLES Fin al Result [facility] [address] [place] [address], [facility] [phone] * (ABNORMAL) CBC W/O DIFFERENTIAL (05/25/2025 4:18 AM CDT) WBC 5.2 4.0 - 10.7 x10E9/L 05/25/2025 4:43 AM [facility] RBC Count 3.71(L) 3.90 - 5.20 x10E12/L 05/25/2025 4:43 AM [facility] Hemoglobin 12.5 11.9 - 15.8 g/dL 05/25/2025 4:43 AM [facility] Hematocrit 38.5 34.8 - 46.1 % 05/25/2025 4:43 AM [facility] MCV 103.8(H) 80.0 - 98.0 fL 05/25/2025 4:43 AM [facility] MCH 33.7(H) 26.7 - 33.6 pg 05/25/2025 4:43 AM [facility] MCHC 32.5 31.7 - 36.3 g/dL 05/25/2025 4:43 AM [facility] RDW-CV 19.3(H) 11.3 - 14.8 % 05/25/2025 4:43 AM [facility] Platelet Count 248 150 - 420 x10E9/L 05/25/2025 4:43 AM [facility] MPV 10.2 7.8 - 11.4 fL 05/25/2025 4:43 AM CDT [facility] Blood BLOOD SPECIMEN / Unknown Venipuncture / Unknown 05/25/2025 4:18 AM CDT 05/25/2025 4:24 AM CDT Jefry Arizmendi MD LAB - HEMATOLOGY ORDERABLES Fi nal Result Performing Organization Address City/[facility]/ZIP Co de Phone Number [address] [address], [place] [phone] * (ABNORMAL) GLUCOSE - POINT OF CARE (05/25/2025 3:44 AM CDT) Glucose WB/POC 196(H) 70 - 99 mg/dL 05/25/2025 3:45 AM CDT [facility] Specimen Type Venous 05/25/2025 3:45 AM CDT [facility] Blood BLOOD SPECIMEN / Unknown 05/25/2025 3:44 AM CDT 05/25/2025 3:45 AM CDT Jefry Arizmendi MD LAB - POINT OF CARE ORDERABLES Final Result Performing Organization Address City/[facility]/ZIP Co de Phone Number [address] [address], [place] [phone] * (ABNORMAL) GLUCOSE - POINT OF CARE (05/25/2025 12:23 AM CDT) Glucose WB/POC 190(H) 70 - 99 mg/dL 05/25/2025 3:35 AM CDT [facility] Specimen Type Arterial/C apillary 05/25/2025 3:35 AM CDT [facility] Blood BLOOD SPECIMEN / Unknown 05/25/2025 12:23 AM CDT 05/25/2025 3:34 AM CDT us Jefry Arizmendi MD LAB - POINT OF CARE ORDERABLES Final Result [address] [address], [place] [phone] * (ABNORMAL) GLUCOSE - POINT OF CARE (05/24/2025 8:16 PM CDT) Glucose WB/POC 195(H) 70 - 99 mg/dL 05/24/2025 8:16 PM CDT [facility] Specimen Type Arterial/C apillary 05/24/2025 8:16 PM CDT [facility] Blood BLOOD SPECIMEN / Unknown 05/24/2025 8:16 PM CDT 05/24/2025 8:16 PM CDT Jefry Arizmendi MD LAB - POINT OF CARE ORDERABLES Final Result [address] [address], [place] [phone] * (ABNORMAL) GLUCOSE - POINT OF CARE (05/24/2025 4:47 PM CDT) Glucose WB/POC 253(H) 70 - 99 mg/dL 05/24/2025 4:48 PM CDT [facility] Specimen Type Arterial/C apillary 05/24/2025 4:48 PM CDT [facility] Blood BLOOD SPECIMEN / Unknown 05/24/2025 4:47 PM CDT 05/24/2025 4:48 PM CDT Jefry Arizmendi MD LAB - POINT OF CARE ORDERABLES Final Result [address] [address], [place] [phone] * (ABNORMAL) RENAL FUNCTION PANEL (05/24/2025 4:27 PM CDT) BUN 50(H) 7 - 26 mg/dL 05/24/2025 5:39 PM CDT [facility] Creatinine 1.05(H) 0.56 - 0.96 mg/dL 05/24/2025 5:39 PM [facility] Sodium 142 136 - 145 mmol/L 05/24/2025 5:39 PM [facility] Potassium 4.4 3.5 - 4.5 mmol/L 05/24/2025 5:39 PM [facility] Chloride 105 98 - 107 mmol/L 05/24/2025 5:39 PM [facility] CO2 29 22 - 29 mmol/L 05/24/2025 5:39 PM [facility] Glucose 220(H) 70 - 99 mg/dL 05/24/2025 5:39 PM [facility] Albumin 2.1(L) 3.4 - 5.0 g/dL 05/24/2025 5:39 PM [facility] Calcium 9.3 8.4 - 10.2 mg/dL 05/24/2025 5:39 PM [facility] Phosphorus 4.6 2.9 - 5.1 mg/dL 05/24/2025 5:39 PM [facility] Anion Gap 8 6 - 16 05/24/2025 5:39 PM [facility] BUN/Creatinine Ratio 48(H) 7 - 23 05/24/2025 5:39 PM [facility] Osmolality Calculated 314(H) 275 - 295 mOsm/kg 05/24/2025 5:39 PM [facility] eGFR by CKD-EPI 60(L) >=90 mL/min/1.7 3 m2 05/24/2025 5:39 PM [facility] Comment:Estimated Glomerular Filtration Rate (eGFR) calculated using the CKD-EPI Creatinine Equation (2020), per the [employer] Kid[employer] and [place] [employer]ph[employer] recommendations. Blood BLOOD SPECIMEN / Unknown Venipuncture / Unknown 05/24/2025 4:27 PM CDT 05/24/2025 5:07 PM [facility] us Jefry Arizmendi MD LAB - CHEMISTRY ORDERABLES Fin al Result [facility] [address] [place] [address], [facility] [phone] * (ABNORMAL) GLUCOSE - POINT OF CARE (05/24/2025 11:25 AM CDT) Glucose WB/POC 200(H) 70 - 99 mg/dL 05/24/2025 11:25 AM CDT [facility] Specimen Type Arterial/C apillary 05/24/2025 11:25 AM CDT [facility] Blood BLOOD SPECIMEN / Unknown 05/24/2025 11:25 AM CDT 05/24/2025 11:25 AM CDT Jefry Arizmendi MD LAB - POINT OF CARE ORDERABLES Final Result [address] [address], [place] [phone] * (ABNORMAL) GLUCOSE - POINT OF CARE (05/24/2025 8:00 AM CDT) Glucose WB/POC 246(H) 70 - 99 mg/dL 05/24/2025 8:01 AM CDT [facility] Specimen Type Arterial/C apillary 05/24/2025 8:01 AM CDT [facility] Blood BLOOD SPECIMEN / Unknown 05/24/2025 8:00 AM CDT 05/24/2025 8:01 AM CDT us Jefry Arizmendi MD LAB - POINT OF CARE ORDERABLES Final Result [address] [address], [place] [phone] * (ABNORMAL) GLUCOSE - POINT OF CARE (05/24/2025 5:44 AM CDT) Glucose WB/POC 174(H) 70 - 99 mg/dL 05/24/2025 5:48 AM CDT [facility] Specimen Type Arterial/C apillary 05/24/2025 5:48 AM CDT [facility] Blood BLOOD SPECIMEN / Unknown 05/24/2025 5:44 AM CDT 05/24/2025 5:48 AM CDT us Jefry Arizmendi MD LAB - POINT OF CARE ORDERABLES Final Result Performing Organization Address City/[facility]/ZIP Co de Phone Number [address] [address], [facility] [phone] * MAGNESIUM BLOOD (05/24/2025 5:27 AM CDT) Magnesium 2.3 1.6 - 2.6 mg/dL 05/24/2025 6:10 AM T [facility] Blood BLOOD SPECIMEN / Unknown Venipuncture / Unknown 05/24/2025 5:27 AM CDT 05/24/2025 5:34 AM CDT us Jefry Arizmendi MD LAB - CHEMISTRY ORDERABLES Fin al Result Performing Organization Address [facility] Co de Phone Number [address] [address], [facility] [phone] * (ABNORMAL) CBC W/O DIFFERENTIAL (05/24/2025 5:27 AM CDT) WBC 5.7 4.0 - 10.7 x10E9/L 05/24/2025 5:50 AM [facility] RBC Count 3.78(L) 3.90 - 5.20 x10E12/L 05/24/2025 5:50 AM T [facility] Hemoglobin 12.6 11.9 - 15.8 g/dL 05/24/2025 5:50 AM T [facility] Hematocrit 36.9 34.8 - 46.1 % 05/24/2025 5:50 AM T [facility] MCV 97.6 80.0 - 98.0 fL 05/24/2025 5:50 AM T [facility] MCH 33.3 26.7 - 33.6 pg 05/24/2025 5:50 AM T [facility] MCHC 34.1 31.7 - 36.3 g/dL 05/24/2025 5:50 AM [facility] RDW-CV 18.8(H) 11.3 - 14.8 % 05/24/2025 5:50 AM [facility] Platelet Count 174 150 - 420 x10E9/L 05/24/2025 5:50 AM [facility] MPV 9.7 7.8 - 11.4 fL 05/24/2025 5:50 AM [facility] Blood BLOOD SPECIMEN / Unknown Venipuncture / Unknown 05/24/2025 5:27 AM CDT 05/24/2025 5:35 AM CDT us Jefry Arizmendi MD LAB - HEMATOLOGY ORDERABLES Fi nal Result [facility] [address] [place] [address], [facility] [phone] * (ABNORMAL) RENAL FUNCTION PANEL (05/24/2025 5:27 AM T) BUN 41(H) 7 - 26 mg/dL 05/24/2025 6:10 AM [facility] Creatinine 0.93 0.56 - 0.96 mg/dL 05/24/2025 6:10 AM [facility] Sodium 142 136 - 145 mmol/L 05/24/2025 6:10 AM [facility] Potassium 4.1 3.5 - 4.5 mmol/L 05/24/2025 6:10 AM [facility] Chloride 103 98 - 107 mmol/L 05/24/2025 6:10 AM [facility] CO2 28 22 - 29 mmol/L 05/24/2025 6:10 AM [facility] Glucose 182(H) 70 - 99 mg/dL 05/24/2025 6:10 AM [facility] Albumin 2.0(L) 3.4 - 5.0 g/dL 05/24/2025 6:10 AM [facility] Calcium 9.1 8.4 - 10.2 mg/dL 05/24/2025 6:10 AM [facility] Phosphorus 4.3 2.9 - 5.1 mg/dL 05/24/2025 6:10 AM T [facility] Anion Gap 11 6 - 16 05/24/2025 6:10 AM T [facility] BUN/Creatinine Ratio 44(H) 7 - 23 05/24/2025 6:10 AM [facility] Osmolality Calculated 309(H) 275 - 295 mOsm/kg 05/24/2025 6:10 AM [facility] eGFR by CKD-EPI 69(L) >=90 mL/min/1.7 3 m2 05/24/2025 6:10 AM [facility] Comment:Estimated Glomerular Filtration Rate (eGFR) calculated using the CKD-EPI Creatinine Equation (2020), per the National Kidney Foundation and [place] [employer]ph[employer] recommendations. Blood BLOOD SPECIMEN / Unknown Venipuncture / Unknown 05/24/2025 5:27 AM CDT 05/24/2025 5:34 AM CDT Jefry Arizmendi MD LAB - CHEMISTRY ORDERABLES Fin al Result [address] [address], [place] [phone] * (ABNORMAL) GLUCOSE - POINT OF CARE (05/23/2025 11:33 PM CDT) [facility] Glucose WB/POC 131(H) 70 - 99 mg/dL 05/23/2025 11:35 PM CDT [facility] Specimen Type Arterial/C apillary 05/23/2025 11:35 PM CDT [facility] Blood BLOOD SPECIMEN / Unknown 05/23/2025 11:33 PM CDT 05/23/2025 11:35 PM CDT us Jefry Arizmendi MD LAB - POINT OF CARE ORDERABLES Final Result [address] [address], [place] [phone] * (ABNORMAL) GLUCOSE - POINT OF CARE (05/23/2025 7:55 PM CDT) Glucose WB/POC 191(H) 70 - 99 mg/dL 05/23/2025 8:07 PM CDT [facility] Specimen Type Arterial/C apillary 05/23/2025 8:07 PM CDT [facility] Blood BLOOD SPECIMEN / Unknown 05/23/2025 7:55 PM CDT 05/23/2025 8:07 PM CDT Jefry Arizmendi MD LAB - POINT OF CARE ORDERABLES Final Result [address] [address], [place] [phone] * (ABNORMAL) GLUCOSE - POINT OF CARE (05/23/2025 4:09 PM CDT) Glucose WB/POC 232(H) 70 - 99 mg/dL 05/23/2025 4:13 PM CDT [facility] Specimen Type Arterial/C apillary 05/23/2025 4:13 PM CDT [facility] Blood BLOOD SPECIMEN / Unknown 05/23/2025 4:09 PM CDT 05/23/2025 4:13 PM CDT Jefry Arizmendi MD LAB - POINT OF CARE ORDERABLES Final Result Performing Organization Address [facility]/ZIP Co de Phone Number [address] [address], [place] [phone] * (ABNORMAL) RENAL FUNCTION PANEL (05/23/2025 4:09 PM CDT) BUN 47(H) 7 - 26 mg/dL 05/23/2025 4:51 PM T [facility] Creatinine 0.98(H) 0.56 - 0.96 mg/dL 05/23/2025 4:51 PM T [facility] Sodium 141 136 - 145 mmol/L 05/23/2025 4:51 PM T [facility] Potassium 3.6 3.5 - 4.5 mmol/L 05/23/2025 4:51 PM [facility] Chloride 104 98 - 107 mmol/L 05/23/2025 4:51 PM [facility] CO2 28 22 - 29 mmol/L 05/23/2025 4:51 PM [facility] Glucose 233(H) 70 - 99 mg/dL 05/23/2025 4:51 PM [facility] Albumin 1.9(L) 3.4 - 5.0 g/dL 05/23/2025 4:51 PM [facility] Calcium 8.6 8.4 - 10.2 mg/dL 05/23/2025 4:51 PM [facility] Phosphorus 6.3(H) 2.9 - 5.1 mg/dL 05/23/2025 4:51 PM [facility] Anion Gap 9 6 - 16 05/23/2025 4:51 PM [facility] BUN/Creatinine Ratio 48(H) 7 - 23 05/23/2025 4:51 PM [facility] Osmolality Calculated 312(H) 275 - 295 mOsm/kg 05/23/2025 4:51 PM [facility] eGFR by CKD-EPI 65(L) >=90 mL/min/1.7 3 m2 05/23/2025 4:51 PM [facility] Comment:Estimated Glomerular Filtration Rate (eGFR) calculated using the CKD-EPI Creatinine Equation (2020), per the [employer] Kidney [employer] and [place] [employer]ph[employer] recommendations. Blood BLOOD SPECIMEN / Unknown Venipuncture / Unknown 05/23/2025 4:09 PM CDT 05/23/2025 4:13 PM CDT us Jefry Arizmendi MD LAB - CHEMISTRY ORDERABLES Fin al Result [facility] [address] [place] [address], [facility] [phone] * (ABNORMAL) GLUCOSE - POINT OF CARE (05/23/2025 12:56 PM CDT) Glucose WB/POC 192(H) 70 - 99 mg/dL 05/23/2025 1:00 PM CDT [facility] Specimen Type Arterial/C apillary 05/23/2025 1:00 PM CDT [facility] Blood BLOOD SPECIMEN / Unknown 05/23/2025 12:56 PM CDT 05/23/2025 1:00 PM CDT Jefry Arizmendi MD LAB - POINT OF CARE ORDERABLES Final Result [facility] [address] [place] [address], [facility] [phone] * XR Abdomen Kub Portable (05/23/2025 9:09 AM CDT) Anatomical Region Laterality Modality Abdomen Digital Radiogra phy 05/23/2025 11:3 6 AM CDT Impressions 05/23/2025 11:39 AM CDT IMPRESSION: No radiographic evidence of acute intra-abdominal process. > Dictated by Ann-Marie Campa MD, in the presence of Shania Patel MD, (development vice president). > Interpreting Provider: Ann-Marie Campa MD on 05/23/2025 11:39 AM Narrative 05/23/2025 11:39 AM CDT PROCEDURE: XR ABDOMEN KUB PORTABLE DATE/TIME OF EXAM: 05/23/2025 9:09 AM CLINICAL INFORMATION: None relevant/not provided if blank. Indication: R57.8: Other shock (HCC) Additional History: COMPARISON: X-ray dated 05/17/2025. FINDINGS: Enteric tube terminates in the gastric body. Surgical clips superimpose right upper abdominal quadrant. Single view of the abdomen demonstrates a nonspecific bowel gas pattern with no evidence of obstruction. No acute osseous abnormalities. Procedure Note Ann-Marie Campa MD - 05/23/2025 PROCEDURE: XR ABDOMEN KUB PORTABLE DATE/TIME OF EXAM: 05/23/2025 9:09 AM CLINICAL INFORMATION: None relevant/not provided if blank. Indication: R57.8: Other shock (HCC) Additional History: COMPARISON: X-ray dated 05/17/2025. FINDINGS: Enteric tube terminates in the gastric body. Surgical clips superimpose right upper abdominal quadrant. Single view of the abdomen demonstrates a nonspecific bowel gas pattern with no evidence of obstruction. No acute osseous abnormalities. IMPRESSION: No radiographic evidence of acute intra-abdominal process. > Dictated by Ann-Marie Campa MD, in the presence of Shania Patel MD,(development vice president). > Interpreting Provider: Ann-Marie Campa MD on 05/23/2025 11:39 AM Jefry Arizmendi MD DIAGNOSTIC IMAGING ORDERABLES Final Result * XR Chest 1Vw Portable (05/23/2025 9:07 AM CDT) Anatomical Region Laterality Modality Chest Digital Radiogra phy 05/23/2025 9:30 AM CDT Narrative 05/23/2025 9:32 AM CDT PROCEDURE: XR CHEST 1VW PORTABLE DATE/TIME OF EXAM: 05/23/2025 9:07 AM CLINICAL INFORMATION: None relevant/not provided if blank. Indication: I50.9: Acute on chronic congestive heart failure, unspecified heart failure type (HCC) Additional History: COMPARISON: Chest x-ray dated 05/19/2025. FINDINGS/IMPRESSION: Interval removal of the esophageal probe. Lines and tubes are otherwise reidentified without significant interval change in position. Left lung is poorly expanded. Persistent left lower lobe and lingular segment of upper lobe atelectasis, there is associated leftward shift of the cardiac shadow. These findings show no significant interval change. Small left-sided pleural effusion is not excluded. Right lung is unremarkable. No right pleural effusion seen. No pneumothorax No significant interval changes. > Dictated by Ann-Marie Campa MD, in the presence of Shania Patel MD, (development vice president). > Interpreting Provider: Ann-Marie Campa MD on 05/23/2025 9:32 AM Procedure Note Ann-Marie Campa MD - 05/23/2025 PROCEDURE: XR CHEST 1VW PORTABLE DATE/TIME OF EXAM: 05/23/2025 9:07 AM CLINICAL INFORMATION: None relevant/not provided if blank. Indication: I50.9: Acute on chronic congestive heart failure,unspecified heart failure type (HCC) Additional History: COMPARISON: Chest x-ray dated 05/19/2025. FINDINGS/IMPRESSION: Interval removal of the esophageal probe. Lines and tubes are otherwise reidentified without significant interval change in position. Left lung is poorly expanded. Persistent left lower lobe and lingular segment of upper lobeatelectasis, there is associated leftward shift of the cardiac shadow. These findings show no significant interval change. Small left-sided pleural effusionis not excluded. Right lung is unremarkable. No right pleural effusion seen. Nopneumothorax No significant interval changes. > Dictated by Ann-Marie Campa MD, in the presence of Shania Patel MD,(development vice president). > Interpreting Provider: Ann-Marie Campa MD on 05/23/2025 9:32 AM us Jefry Arizmendi MD DIAGNOSTIC IMAGING ORDERABLES Final Result * (ABNORMAL) GLUCOSE - POINT OF CARE (05/23/2025 8:24 AM CDT) Glucose WB/POC 207(H) 70 - 99 mg/dL 05/23/2025 12:52 PM CDT [facility] Specimen Type Arterial/C apillary 05/23/2025 12:52 PM CDT [facility] Blood BLOOD SPECIMEN / Unknown 05/23/2025 8:24 AM CDT 05/23/2025 12:52 PM CDT us Jefry Arizmendi MD LAB - POINT OF CARE ORDERABLES Final Result [address] [address], [facility] [phone] * (ABNORMAL) GLUCOSE - POINT OF CARE (05/23/2025 3:27 AM CDT) Glucose WB/POC 169(H) 70 - 99 mg/dL 05/23/2025 3:32 AM CDT [facility] Specimen Type Arterial/C apillary 05/23/2025 3:32 AM CDT [facility] Blood BLOOD SPECIMEN / Unknown 05/23/2025 3:27 AM CDT 05/23/2025 3:32 AM CDT us Jefry Arizmendi MD LAB - POINT OF CARE ORDERABLES Final Result Performing Organization Address City/[facility]/ZIP Co de Phone Number [address] [address], [facility] [phone] * MAGNESIUM BLOOD (05/23/2025 3:26 AM CDT) Magnesium 2.4 1.6 - 2.6 mg/dL 05/23/2025 4:00 AM T [facility] Blood BLOOD SPECIMEN / Unknown Venipuncture / Unknown 05/23/2025 3:26 AM CDT 05/23/2025 3:33 AM CDT Jefry Arizmendi MD LAB - CHEMISTRY ORDERABLES Fin al Result Performing Organization Address [facility]/ZIP Co de Phone Number [address] [address], [facility] [phone] * (ABNORMAL) CBC W/O DIFFERENTIAL (05/23/2025 3:26 AM CDT) WBC 5.8 4.0 - 10.7 x10E9/L 05/23/2025 3:41 AM [facility] RBC Count 3.86(L) 3.90 - 5.20 x10E12/L 05/23/2025 3:41 AM [facility] Hemoglobin 12.7 11.9 - 15.8 g/dL 05/23/2025 3:41 AM [facility] Hematocrit 36.3 34.8 - 46.1 % 05/23/2025 3:41 AM [facility] MCV 94.0 80.0 - 98.0 fL 05/23/2025 3:41 AM [facility] MCH 32.9 26.7 - 33.6 pg 05/23/2025 3:41 AM [facility] MCHC 35.0 31.7 - 36.3 g/dL 05/23/2025 3:41 AM [facility] RDW-CV 17.7(H) 11.3 - 14.8 % 05/23/2025 3:41 AM [facility] Platelet Count 164 150 - 420 x10E9/L 05/23/2025 3:41 AM [facility] MPV 9.5 7.8 - 11.4 fL 05/23/2025 3:41 AM [facility] Blood BLOOD SPECIMEN / Unknown Venipuncture / Unknown 05/23/2025 3:26 AM CDT 05/23/2025 3:33 AM T us Jefry Arizmendi MD LAB - HEMATOLOGY ORDERABLES Fi nal Result [facility] [address] [place] [address], [facility] [phone] * (ABNORMAL) RENAL FUNCTION PANEL (05/23/2025 3:26 AM T) BUN 44(H) 7 - 26 mg/dL 05/23/2025 4:00 AM [facility] Creatinine 0.98(H) 0.56 - 0.96 mg/dL 05/23/2025 4:00 AM [facility] Sodium 138 136 - 145 mmol/L 05/23/2025 4:00 AM [facility] Potassium 3.3(L) 3.5 - 4.5 mmol/L 05/23/2025 4:00 AM [facility] Chloride 103 98 - 107 mmol/L 05/23/2025 4:00 AM [facility] CO2 28 22 - 29 mmol/L 05/23/2025 4:00 AM [facility] Glucose 166(H) 70 - 99 mg/dL 05/23/2025 4:00 AM [facility] Albumin 1.9(L) 3.4 - 5.0 g/dL 05/23/2025 4:00 AM [facility] Calcium 8.8 8.4 - 10.2 mg/dL 05/23/2025 4:00 AM [facility] Phosphorus 2.1(L) 2.9 - 5.1 mg/dL 05/23/2025 4:00 AM [facility] Anion Gap 7 6 - 16 05/23/2025 4:00 AM [facility] BUN/Creatinine Ratio 45(H) 7 - 23 05/23/2025 4:00 AM [facility] Osmolality Calculated 301(H) 275 - 295 mOsm/kg 05/23/2025 4:00 AM [facility] eGFR by CKD-EPI 65(L) >=90 mL/min/1.7 3 m2 05/23/2025 4:00 AM [facility] Comment:Estimated Glomerular Filtration Rate (eGFR) calculated using the CKD-EPI Creatinine Equation (2020), per the [employer] and [place] [employer] recommendations. Blood BLOOD SPECIMEN / Unknown Venipuncture / Unknown 05/23/2025 3:26 AM CDT 05/23/2025 3:33 AM CDT Jefry Arizmendi MD LAB - CHEMISTRY ORDERABLES Fin al Result [address] [address], [place] [phone] * (ABNORMAL) GLUCOSE - POINT OF CARE (05/23/2025 12:15 AM CDT) Glucose WB/POC 192(H) 70 - 99 mg/dL 05/23/2025 12:19 AM [facility] Specimen Type Arterial/C apillary 05/23/2025 12:19 AM T [facility] Blood BLOOD SPECIMEN / Unknown 05/23/2025 12:15 AM CDT 05/23/2025 12:19 AM CDT Jefry Arizmendi MD LAB - POINT OF CARE ORDERABLES Final Result [address] [address], [place] [phone] * (ABNORMAL) GLUCOSE - POINT OF CARE (05/22/2025 7:56 PM CDT) Glucose WB/POC 163(H) 70 - 99 mg/dL 05/22/2025 8:01 PM CDT [facility] Specimen Type Arterial/C apillary 05/22/2025 8:01 PM CDT [facility] Blood BLOOD SPECIMEN / Unknown 05/22/2025 7:56 PM CDT 05/22/2025 8:01 PM CDT Jefry Arizmendi MD LAB - POINT OF CARE ORDERABLES Final Result Performing Organization Address City/[facility]/ZIP Co de Phone Number [address] [address], [place] [phone] * (ABNORMAL) GLUCOSE - POINT OF CARE (05/22/2025 4:13 PM CDT) Glucose WB/POC 244(H) 70 - 99 mg/dL 05/22/2025 4:13 PM CDT [facility] Specimen Type Arterial/C apillary 05/22/2025 4:13 PM CDT [facility] Blood BLOOD SPECIMEN / Unknown 05/22/2025 4:13 PM CDT 05/22/2025 4:13 PM CDT us Jefry Arizmendi MD LAB - POINT OF CARE ORDERABLES Final Result Performing Organization Address [facility] Co de Phone Number [address] [address], [place] [phone] * (ABNORMAL) MAGNESIUM BLOOD (05/22/2025 4:04 PM CDT) Magnesium 2.7(H) 1.6 - 2.6 mg/dL 05/22/2025 5:12 PM CDT [facility] Blood BLOOD SPECIMEN / Unknown Venipuncture / Unknown 05/22/2025 4:04 PM CDT 05/22/2025 4:18 PM CDT us Jefry Arizmendi MD LAB - CHEMISTRY ORDERABLES Fin al Result [facility] [address] [place] [address], [facility] [phone] * (ABNORMAL) RENAL FUNCTION PANEL (05/22/2025 4:04 PM [facility] BUN 43(H) 7 - 26 mg/dL 05/22/2025 5:16 PM [facility] Creatinine 1.06(H) 0.56 - 0.96 mg/dL 05/22/2025 5:16 PM [facility] Sodium 137 136 - 145 mmol/L 05/22/2025 5:16 PM [facility] Potassium 3.8 3.5 - 4.5 mmol/L 05/22/2025 5:16 PM [facility] Chloride 101 98 - 107 mmol/L 05/22/2025 5:16 PM [facility] CO2 27 22 - 29 mmol/L 05/22/2025 5:16 PM [facility] Glucose 216(H) 70 - 99 mg/dL 05/22/2025 5:16 PM [facility] Albumin 2.0(L) 3.4 - 5.0 g/dL 05/22/2025 5:16 PM [facility] Calcium 8.9 8.4 - 10.2 mg/dL 05/22/2025 5:16 PM [facility] Phosphorus 4.0 2.9 - 5.1 mg/dL 05/22/2025 5:16 PM [facility] Anion Gap 9 6 - 16 05/22/2025 5:16 PM [facility] BUN/Creatinine Ratio 41(H) 7 - 23 05/22/2025 5:16 PM [facility] Osmolality Calculated 301(H) 275 - 295 mOsm/kg 05/22/2025 5:16 PM [facility] eGFR by CKD-EPI 59(L) >=90 mL/min/1.7 3 m2 05/22/2025 5:16 PM [facility] Comment:Estimated Glomerular Filtration Rate (eGFR) calculated using the CKD-EPI Creatinine Equation (2020), per the National Kidney Foundation and [place] [employer] recommendations. Blood BLOOD SPECIMEN / Unknown Venipuncture / Unknown 05/22/2025 4:04 PM CDT 05/22/2025 4:18 PM CDT Jefry Arizmendi MD LAB - CHEMISTRY ORDERABLES Fin al Result [address] [address], [place] [phone] * (ABNORMAL) GLUCOSE - POINT OF CARE (05/22/2025 12:31 PM CDT) Glucose WB/POC 162(H) 70 - 99 mg/dL 05/22/2025 12:32 PM CDT [facility] Specimen Type Arterial/C apillary 05/22/2025 12:32 PM CDT [facility] Blood BLOOD SPECIMEN / Unknown 05/22/2025 12:31 PM CDT 05/22/2025 12:32 PM CDT Jefry Arizmendi MD LAB - POINT OF CARE ORDERABLES Final Result Performing Organization Address [facility]/ZIP Co de Phone Number [address] [address], [place] [phone] * (ABNORMAL) GLUCOSE - POINT OF CARE (05/22/2025 8:03 AM CDT) Glucose WB/POC 174(H) 70 - 99 mg/dL 05/22/2025 8:07 AM CDT [facility] Specimen Type Arterial/C apillary 05/22/2025 8:07 AM CDT [facility] Blood BLOOD SPECIMEN / Unknown 05/22/2025 8:03 AM CDT 05/22/2025 8:07 AM CDT Jefry Arizmendi MD LAB - POINT OF CARE ORDERABLES Final Result Performing Organization Address City/[facility]/ZIP Co de Phone Number [address] [address], [place] [phone] * (ABNORMAL) BLOOD GASES ART + COOX PANEL (05/22/2025 5:54 AM [facility]) pH Arterial 7.45 7.35 - 7.45 pH 05/22/2025 6:02 AM [facility] pO2 Arterial 85 80 - 100 mmHg 05/22/2025 6:02 AM [facility] pCO2 Arterial 46(H) 35 - 45 mmHg 6:02 AM [facility] HCO3 Arterial 32.0(H) 20.0 - 30.0 mmol/L 05/22/2025 6:02 AM [facility] BE Arterial 6.9(H) -2.0 - 2.0 mmol/L 05/22/2025 6:02 AM [facility] Oxyhemoglobin Arterial 94.8 % 05/22/2025 6:02 AM [facility] Dexoyhemoglobin (HHB) % 2.2 % 05/22/2025 6:02 AM [facility] Methemoglobin <0.8 0.0 - 2.0 % 05/22/2025 6:02 AM [facility] Carboxyhemoglobin 2.3(H) 0.0 - 2.0 % 2024 6:02 AM [facility] O2 Content Arterial 19.0 Interpret within clinical context ml/dL 05/22/2025 6:02 AM [facility] Hemoglobin by COOX 14.2 12.0 - 15.6 g/dL 05/22/2025 6:02 AM [facility] O2 Saturation Arterial 98 90 - 100 % 05/22/2025 6:02 AM [facility] FI O2 Arterial 40.0 % 05/22/2025 6:02 AM [facility] Blood, arterial ARTERIAL BLOOD SPECIMEN / Unknown Arterial Puncture / Unknown 05/22/2025 5:54 AM T 05/22/2025 5:[address] [facility] - 05/22/2025 6:02 AM [facility] Carboxyhemoglobin Normal Concentration: Non-smokers: 0-2%; Smokers: 0-9%; Toxic: >20% us Gonzalorashi Reeves PERFUSIONIST-ORNAMENTAL MACHINE OPERATOR LAB - BLOOD GASES ORDERABL ES Final Result Performing Organization Address [facility]/ZIP Co de Phone Number [address] [address], [facility] [phone] * MAGNESIUM BLOOD (05/22/2025 4:15 AM CDT) Magnesium 1.9 1.6 - 2.6 mg/dL 05/22/2025 4:59 AM T [facility] Blood BLOOD SPECIMEN / Unknown Venipuncture / Unknown 05/22/2025 4:15 AM CDT 05/22/2025 4:22 AM CDT Jefry Arizmendi MD LAB - CHEMISTRY ORDERABLES Fin al Result Performing Organization Address [facility] Co de Phone Number [address] [address], [facility] [phone] * (ABNORMAL) CBC W/O DIFFERENTIAL (05/22/2025 4:15 AM CDT) WBC 7.6 4.0 - 10.7 x10E9/L 05/22/2025 4:28 AM [facility] RBC Count 4.03 3.90 - 5.20 x10E12/L 05/22/2025 4:28 AM [facility] Hemoglobin 13.4 11.9 - 15.8 g/dL 05/22/2025 4:28 AM [facility] Hematocrit 38.8 34.8 - 46.1 % 05/22/2025 4:28 AM [facility] MCV 96.3 80.0 - 98.0 fL 05/22/2025 4:28 AM [facility] MCH 33.3 26.7 - 33.6 pg 05/22/2025 4:28 AM [facility] MCHC 34.5 31.7 - 36.3 g/dL 05/22/2025 4:28 AM [facility] RDW-CV 17.9(H) 11.3 - 14.8 % 05/22/2025 4:28 AM [facility] Platelet Count 164 150 - 420 x10E9/L 05/22/2025 4:28 AM [facility] MPV 9.2 7.8 - 11.4 fL 05/22/2025 4:28 AM [facility] Blood BLOOD SPECIMEN / Unknown Venipuncture / Unknown 05/22/2025 4:15 AM CDT 05/22/2025 4:22 AM CDT us Jefry Arizmendi MD LAB - HEMATOLOGY ORDERABLES Fi nal Result [facility] [address] [place] [address], [facility] [phone] * (ABNORMAL) RENAL FUNCTION PANEL (05/22/2025 4:15 AM CDT) BUN 39(H) 7 - 26 mg/dL 05/22/2025 4:59 AM [facility] Creatinine 1.01(H) 0.56 - 0.96 mg/dL 05/22/2025 4:59 AM [facility] Sodium 136 136 - 145 mmol/L 05/22/2025 4:59 AM [facility] Potassium 3.7 3.5 - 4.5 mmol/L 05/22/2025 4:59 AM [facility] Chloride 98 98 - 107 mmol/L 05/22/2025 4:59 AM [facility] CO2 31(H) 22 - 29 mmol/L 05/22/2025 4:59 AM [facility] Glucose 187(H) 70 - 99 mg/dL 05/22/2025 4:59 AM [facility] Albumin 2.0(L) 3.4 - 5.0 g/dL 05/22/2025 4:59 AM [facility] Calcium 9.2 8.4 - 10.2 mg/dL 05/22/2025 4:59 AM [facility] Phosphorus 2.3(L) 2.9 - 5.1 mg/dL 05/22/2025 4:59 AM [facility] Anion Gap 7 6 - 16 05/22/2025 4:59 AM [facility] BUN/Creatinine Ratio 39(H) 7 - 23 05/22/2025 4:59 AM [facility] Osmolality Calculated 296(H) 275 - 295 mOsm/kg 05/22/2025 4:59 AM [facility] eGFR by CKD-EPI 63(L) >=90 mL/min/1.7 3 m2 05/22/2025 4:59 AM [facility] Comment:Estimated Glomerular Filtration Rate (eGFR) calculated using the CKD-EPI Creatinine Equation (2020), per the National Kidney Foundation and [place] [employer]ph[employer] recommendations. Blood BLOOD SPECIMEN / Unknown Venipuncture / Unknown 05/22/2025 4:15 AM CDT 05/22/2025 4:22 AM CDT us Jefry Arizmendi MD LAB - CHEMISTRY ORDERABLES Fin al Result [facility] [address] [place] [address], [facility] [phone] * (ABNORMAL) BLOOD GASES ART + COOX PANEL (05/22/2025 4:15 AM CD) pH Arterial 7.47(H) 7.35 - 7.45 pH 05/22/2025 4:29 AM [facility] pO2 Arterial 68(L) 80 - 100 mmHg 05/22/2025 4:29 AM [facility] pCO2 Arterial 44 35 - 45 mmHg 4:29 AM [facility] HCO3 Arterial 32.0(H) 20.0 - 30.0 mmol/L 05/22/2025 4:29 AM [facility] BE Arterial 7.3(H) -2.0 - 2.0 mmol/L 05/22/2025 4:29 AM [facility] Oxyhemoglobin Arterial 92.4 % 05/22/2025 4:29 AM [facility] Dexoyhemoglobin (HHB) % 4.2 % 05/22/2025 4:29 AM [facility] Methemoglobin <0.8 0.0 - 2.0 % 05/22/2025 4:29 AM [facility] Carboxyhemoglobin 3.2(H) 0.0 - 2.0 % 2024 4:29 AM [facility] O2 Content Arterial 18.2 Interpret within clinical context ml/dL 05/22/2025 4:29 AM [facility] Hemoglobin by COOX 14.0 12.0 - 15.6 g/dL 05/22/2025 4:29 AM [facility] O2 Saturation Arterial 96 90 - 100 % 05/22/2025 4:29 AM [facility] FI O2 Arterial 30.0 % 05/22/2025 4:29 AM [facility] Blood, arterial ARTERIAL BLOOD SPECIMEN / Unknown Arterial Puncture / Unknown 05/22/2025 4:15 AM CDT 05/22/2025 4:19 AM CDT Narrative [facility] - 05/22/2025 4:29 AM CDT Carboxyhemoglobin Normal Concentration: Non-smokers: 0-2%; Smokers: 0-9%; Toxic: >20% Jefry Arizmendi MD LAB - BLOOD GASES ORDERABLES F inal Result Performing Organization Address City/[facility] Co de Phone Number [facility] [address] [place] [address], [facility] [phone] * (ABNORMAL) GLUCOSE - POINT OF CARE (05/22/2025 4:14 AM CDT) Glucose WB/POC 188(H) 70 - 99 mg/dL 05/22/2025 4:18 AM [facility] Specimen Type Arterial/C apillary 05/22/2025 4:18 AM [facility] Blood BLOOD SPECIMEN / Unknown 05/22/2025 4:14 AM CDT 05/22/2025 4:18 AM CDT Jefry Arizmendi MD LAB - POINT OF CARE ORDERABLES Final Result [address] [address], [place] [phone] * (ABNORMAL) GLUCOSE - POINT OF CARE (05/22/2025 12:08 AM CDT) Glucose WB/POC 155(H) 70 - 99 mg/dL 05/22/2025 12:12 AM CDT [facility] Specimen Type Arterial/C apillary 05/22/2025 12:12 AM CDT [facility] Blood BLOOD SPECIMEN / Unknown 05/22/2025 12:08 AM CDT 05/22/2025 12:12 AM CDT Jefry Arizmendi MD LAB - POINT OF CARE ORDERABLES Final Result Performing Organization Address [facility]/ZIP Co de Phone Number [address] [address], [place] [phone] * (ABNORMAL) GLUCOSE - POINT OF CARE (05/21/2025 9:03 PM CDT) Glucose WB/POC 167(H) 70 - 99 mg/dL 05/21/2025 9:08 PM CDT [facility] Specimen Type Arterial/C apillary 05/21/2025 9:08 PM CDT [facility] Blood BLOOD SPECIMEN / Unknown 05/21/2025 9:03 PM CDT 05/21/2025 9:08 PM CDT us Jefry Arizmendi MD LAB - POINT OF CARE ORDERABLES Final Result [address] [address], [place] [phone] * (ABNORMAL) GLUCOSE - POINT OF CARE (05/21/2025 8:14 PM CDT) Glucose WB/POC 134(H) 70 - 99 mg/dL 05/21/2025 8:18 PM CDT [facility] Specimen Type Arterial/C apillary 05/21/2025 8:18 PM [facility] Blood BLOOD SPECIMEN / Unknown 05/21/2025 8:14 PM CDT 05/21/2025 8:18 PM CDT us Jefry Arizmendi MD LAB - POINT OF CARE ORDERABLES Final Result [facility] [address] [place] [address], [facility] [phone] * (ABNORMAL) BLOOD GASES GATO + COOX PANEL (05/21/2025 7:05 PM CDT) pH Venous 7.52(H) 7.32 - 7.42 pH 05/21/2025 7:19 PM [facility] pO2 Venous 83(H) 35 - 40 mmHg 05/21/2025 7:19 PM [facility] pCO2 Venous 34(L) 40 - 50 mmHg 05/21/2025 7:19 PM [facility] HCO3 Venous 27.8 20 - 30 mmol/L 05/21/2025 7:19 PM [facility] Base Excess Venous 5.1(H) -2.0 - 2.0 mmol/L 05/21/2025 7:19 PM [facility] Oxyhemoglobin Venous 95.4 % 05/10 7:19 PM [facility] Deoxyhemoglobin (HHB) Venous % 1.1 % 05/21/2025 7:19 PM [facility] Methemoglobin <0.8 0.0 - 2.0 % 05/21/2025 7:19 PM [facility] Carboxyhemoglobin 3.1(H) 0.0 - 2.0 % 2024 7:19 PM [facility] O2 Content Venous 17.9 Interpret within clinical context ml/dL 05/21/2025 7:19 PM [facility] Hemoglobin by COOX 13.3 12.0 - 15.6 g/dL 05/21/2025 7:19 PM [facility] O2 Saturation Venous 99 >=70 % 05/10 7:19 PM CDT [facility] FI O2 Mixed Venous 30.0 % 2024 7:19 PM CDT [facility] Blood BLOOD SPECIMEN / Unknown Venipuncture / Unknown 05/21/2025 7:05 PM CDT 05/21/2025 7:09 PM CDT Narrative [facility] - 05/21/2025 7:19 PM CDT Carboxyhemoglobin Normal Concentration: Non-smokers: 0-2%; Smokers: 0-9%; Toxic: >20% Jefry Arizmendi MD LAB - BLOOD GASES ORDERABLES F inal Result Performing Organization Address City/[facility]/ZIP Co de Phone Number [address] [address], [facility] [phone] * PHOSPHORUS BLOOD (05/21/2025 7:05 PM CDT) Phosphorus 3.0 2.9 - 5.1 mg/dL 05/21/2025 8:02 PM CDT [facility] Blood BLOOD SPECIMEN / Unknown Venipuncture / Unknown 05/21/2025 7:05 PM CDT 05/21/2025 7:09 PM CDT Jefry Arizmendi MD LAB - CHEMISTRY ORDERABLES Fin al Result Performing Organization Address [facility]/ZIP Co de Phone Number [address] [address], [place] [phone] * MAGNESIUM BLOOD (05/21/2025 7:05 PM CDT) Magnesium 1.9 1.6 - 2.6 mg/dL 05/21/2025 8:02 PM CDT [facility] Blood BLOOD SPECIMEN / Unknown Venipuncture / Unknown 05/21/2025 7:05 PM CDT 05/21/2025 7:09 PM CDT Jefry Arizmendi MD LAB - CHEMISTRY ORDERABLES Fin al Result [facility] [address] [place] [address], [facility] [phone] * (ABNORMAL) CBC W/O DIFFERENTIAL (05/21/2025 7:05 PM CDT) WBC 7.0 4.0 - 10.7 x10E9/L 05/21/2025 7:36 PM CDT [facility] RBC Count 3.95 3.90 - 5.20 x10E12/L 05/21/2025 7:36 PM T [facility] Hemoglobin 13.3 11.9 - 15.8 g/dL 05/21/2025 7:36 PM T [facility] Hematocrit 38.3 34.8 - 46.1 % 05/21/2025 7:36 PM [facility] MCV 97.0 80.0 - 98.0 fL 05/21/2025 7:36 PM T [facility] MCH 33.7(H) 26.7 - 33.6 pg 05/21/2025 7:36 PM T [facility] MCHC 34.7 31.7 - 36.3 g/dL 05/21/2025 7:36 PM [facility] RDW-CV 17.9(H) 11.3 - 14.8 % 05/21/2025 7:36 PM [facility] Platelet Count 154 150 - 420 x10E9/L 05/21/2025 7:36 PM T [facility] MPV 9.6 7.8 - 11.4 fL 05/21/2025 7:36 PM T [facility] Blood BLOOD SPECIMEN / Unknown Venipuncture / Unknown 05/21/2025 7:05 PM CDT 05/21/2025 7:09 PM CDT Jefry Arizmendi MD LAB - HEMATOLOGY ORDERABLES Fi nal Result Performing Organization Address City/[facility]/ZIP Co de Phone Number [address] [address], [facility] [phone] * (ABNORMAL) COMPREHENSIVE METABOLIC PANEL (05/21/2025 7:05 PM CDT) BUN 33(H) 7 - 26 mg/dL 05/21/2025 8:02 PM [facility] Creatinine 0.99(H) 0.56 - 0.96 mg/dL 05/21/2025 8:02 PM [facility] Sodium 136 136 - 145 mmol/L 05/21/2025 8:02 PM [facility] Potassium 3.8 3.5 - 4.5 mmol/L 05/21/2025 8:02 PM [facility] Chloride 98 98 - 107 mmol/L 05/21/2025 8:02 PM [facility] CO2 29 22 - 29 mmol/L 05/21/2025 8:02 PM [facility] Glucose 166(H) 70 - 99 mg/dL 05/21/2025 8:02 PM [facility] Calcium 8.8 8.4 - 10.2 mg/dL 05/21/2025 8:02 PM [facility] Protein Total 5.7(L) 6.0 - 8.3 g/dL 05/21/2025 8:02 PM [facility] Albumin 2.0(L) 3.4 - 5.0 g/dL 05/21/2025 8:02 PM [facility] Bilirubin Total 8.6(H) 0.2 - 1.2 mg/dL 05/21/2025 8:02 PM [facility] Alkaline Phosphatase 230(H) 40 - 150 U/L 05/21/2025 8:02 PM [facility] ALT 19 5 - 55 U/L 05/21/2025 8:02 PM [facility] AST 43(H) 5 - 34 U/L 05/21/2025 8:02 PM [facility] Anion Gap 9 6 - 16 05/21/2025 8:02 PM [facility] BUN/Creatinine Ratio 33(H) 7 - 23 05/21/2025 8:02 PM [facility] Osmolality Calculated 293 275 - 295 mOsm/kg 05/21/2025 8:02 PM [facility] Albumin/Globulin Ratio 0.5(L) 1.1 - 2.3 05/21/2025 8:02 PM [facility] eGFR by CKD-EPI 64(L) >=90 mL/min/1.7 3 m2 05/21/2025 8:02 PM [facility] Comment:Estimated Glomerular Filtration Rate (eGFR) calculated using the CKD-EPI Creatinine Equation (2020), per the [employer] and [place] [employer] recommendations. Blood BLOOD SPECIMEN / Unknown Venipuncture / Unknown 05/21/2025 7:05 PM CDT 05/21/2025 7:09 PM CDT us Jefry Arizmendi MD LAB - CHEMISTRY ORDERABLES Fin al Result [facility] [address] [place] [address], [facility] [phone] * (ABNORMAL) BLOOD GASES ART + COOX PANEL (05/21/2025 7:05 PM T) pH Arterial 7.45 7.35 - 7.45 pH 05/21/2025 7:18 PM [facility] pO2 Arterial 87 80 - 100 mmHg 05/21/2025 7:18 PM [facility] pCO2 Arterial 49(H) 35 - 45 mmHg 7:18 PM [facility] HCO3 Arterial 34.1(H) 20.0 - 30.0 mmol/L 05/21/2025 7:18 PM [facility] BE Arterial 8.6(H) -2.0 - 2.0 mmol/L 05/21/2025 7:18 PM [facility] Oxyhemoglobin Arterial 94.8 % 05/21/2025 7:18 PM [facility] Dexoyhemoglobin (HHB) % 2.0 % 05/21/2025 7:18 PM [facility] Methemoglobin 0.9 0.0 - 2.0 % 05/21/2025 7:18 PM [facility] Carboxyhemoglobin 2.3(H) 0.0 - 2.0 % 2024 7:18 PM CDT [facility] O2 Content Arterial 18.7 Interpret within clinical context ml/dL 05/21/2025 7:18 PM T [facility] Hemoglobin by COOX 14.0 12.0 - 15.6 g/dL 05/21/2025 7:18 PM T [facility] O2 Saturation Arterial 98 90 - 100 % 05/21/2025 7:18 PM CDT [facility] FI O2 Arterial 30.0 % 05/21/2025 7:18 PM CDT [facility] Blood, arterial ARTERIAL BLOOD SPECIMEN / Unknown Arterial Puncture / Unknown 05/21/2025 7:05 PM CDT 05/21/2025 7:08 PM CDT Narrative [facility] - 05/21/2025 7:18 PM CDT Carboxyhemoglobin Normal Concentration: Non-smokers: 0-2%; Smokers: 0-9%; Toxic: >20% Jefry Arizmendi MD LAB - BLOOD GASES ORDERABLES F inal Result [address] [address], [place] [phone] * LACTIC ACID BLOOD (05/21/2025 7:05 PM CDT) [facility] Lactic Acid-Stat 1.5 <=2.0 mmol/L 05/21/2025 8:01 PM CDT [facility] Blood BLOOD SPECIMEN / Unknown Venipuncture / Unknown 05/21/2025 7:05 PM CDT 05/21/2025 7:09 PM CDT Jefry Arizmendi MD LAB - CHEMISTRY ORDERABLES Fin al Result [address] [address], [place] [phone] * (ABNORMAL) GLUCOSE - POINT OF CARE (05/21/2025 4:09 PM CDT) [facility] Glucose WB/POC 176(H) 70 - 99 mg/dL 05/21/2025 4:13 PM [facility] Specimen Type Arterial/C apillary 05/21/2025 4:13 PM [facility] Blood BLOOD SPECIMEN / Unknown 05/21/2025 4:09 PM CDT 05/21/2025 4:13 PM CDT us Jefry Arizmendi MD LAB - POINT OF CARE ORDERABLES Final Result [facility] [address] [place] [address], [facility] [phone] * (ABNORMAL) BLOOD GASES ART + COOX PANEL (05/21/2025 4:01 PM CDT) pH Arterial 7.48(H) 7.35 - 7.45 pH 05/21/2025 4:11 PM [facility] pO2 Arterial 78(L) 80 - 100 mmHg 05/21/2025 4:11 PM [facility] pCO2 Arterial 45 35 - 45 mmHg 4:11 PM [facility] HCO3 Arterial 33.5(H) 20.0 - 30.0 mmol/L 05/21/2025 4:11 PM [facility] BE Arterial 8.8(H) -2.0 - 2.0 mmol/L 05/21/2025 4:11 PM [facility] Oxyhemoglobin Arterial 93.8 % 05/21/2025 4:11 PM [facility] Dexoyhemoglobin (HHB) % 2.5 % 05/21/2025 4:11 PM [facility] Methemoglobin 1.0 0.0 - 2.0 % 05/21/2025 4:11 PM [facility] Carboxyhemoglobin 2.7(H) 0.0 - 2.0 % 2024 4:11 PM [facility] O2 Content Arterial 19.0 Interpret within clinical context ml/dL 05/21/2025 4:11 PM [facility] Hemoglobin by COOX 14.4 12.0 - 15.6 g/dL 05/21/2025 4:11 PM CDT [facility] O2 Saturation Arterial 97 90 - 100 % 05/21/2025 4:11 PM CDT [facility] FI O2 Arterial 30.0 % 05/21/2025 4:11 PM CDT [facility] Blood, arterial ARTERIAL BLOOD SPECIMEN / Unknown Arterial Puncture / Unknown 05/21/2025 4:01 PM CDT 05/21/2025 4:08 PM CDT Narrative [facility] - 05/21/2025 4:11 PM CDT Carboxyhemoglobin Normal Concentration: Non-smokers: 0-2%; Smokers: 0-9%; Toxic: >20% Jefry Arizmendi MD LAB - BLOOD GASES ORDERABLES F inal Result Performing Organization Address City/[facility]/ZIP Co de Phone Number [address] [address], [facility] [phone] * MAGNESIUM BLOOD (05/21/2025 4:01 PM CDT) Magnesium 1.9 1.6 - 2.6 mg/dL 05/21/2025 5:24 PM T [facility] Blood BLOOD SPECIMEN / Unknown Venipuncture / Unknown 05/21/2025 4:01 PM CDT 05/21/2025 4:54 PM CDT Jefry Arizmendi MD LAB - CHEMISTRY ORDERABLES Fin al Result [address] [address], [place] [phone] * (ABNORMAL) RENAL FUNCTION PANEL (05/21/2025 4:01 PM CDT) BUN 33(H) 7 - 26 mg/dL 05/21/2025 5:24 PM T [facility] Creatinine 0.95 0.56 - 0.96 mg/dL 05/21/2025 5:24 PM T [facility] Sodium 136 136 - 145 mmol/L 05/21/2025 5:24 PM T [facility] Potassium 3.7 3.5 - 4.5 mmol/L 05/21/2025 5:24 PM [facility] Chloride 98 98 - 107 mmol/L 05/21/2025 5:24 PM [facility] CO2 30(H) 22 - 29 mmol/L 05/21/2025 5:24 PM [facility] Glucose 163(H) 70 - 99 mg/dL 05/21/2025 5:24 PM [facility] Albumin 2.0(L) 3.4 - 5.0 g/dL 05/21/2025 5:24 PM [facility] Calcium 8.7 8.4 - 10.2 mg/dL 05/21/2025 5:24 PM [facility] Phosphorus 2.9 2.9 - 5.1 mg/dL 05/21/2025 5:24 PM [facility] Anion Gap 8 6 - 16 05/21/2025 5:24 PM [facility] BUN/Creatinine Ratio 35(H) 7 - 23 05/21/2025 5:24 PM [facility] Osmolality Calculated 293 275 - 295 mOsm/kg 05/21/2025 5:24 PM [facility] eGFR by CKD-EPI 67(L) >=90 mL/min/1.7 3 m2 05/21/2025 5:24 PM [facility] Comment:Estimated Glomerular Filtration Rate (eGFR) calculated using the CKD-EPI Creatinine Equation (2020), per the [employer] and [place] [employer] recommendations. Blood BLOOD SPECIMEN / Unknown Venipuncture / Unknown 05/21/2025 4:01 PM CDT 05/21/2025 4:54 PM CDT us Jefry Arizmendi MD LAB - CHEMISTRY ORDERABLES Fin al Result [facility] [address] [place] [phone], [facility] [phone] * (ABNORMAL) GLUCOSE - POINT OF CARE (05/21/2025 12:26 PM CDT) Glucose WB/POC 165(H) 70 - 99 mg/dL 05/21/2025 12:31 PM CDT [facility] Specimen Type Arterial/C apillary 05/21/2025 12:31 PM CDT [facility] Blood BLOOD SPECIMEN / Unknown 05/21/2025 12:26 PM CDT 05/21/2025 12:31 PM CDT us Jefry Arizmendi MD LAB - POINT OF CARE ORDERABLES Final Result Performing Organization Address City/[facility]/ZIP Co de Phone Number [address] [address], [place] [phone] * (ABNORMAL) GLUCOSE - POINT OF CARE (05/21/2025 8:50 AM CDT) Glucose WB/POC 146(H) 70 - 99 mg/dL 05/21/2025 8:56 AM CDT [facility] Specimen Type Venous 05/21/2025 8:56 AM CDT [facility] Blood BLOOD SPECIMEN / Unknown 05/21/2025 8:50 AM CDT 05/21/2025 8:56 AM CDT Jefry Arizmendi MD LAB - POINT OF CARE ORDERABLES Final Result Performing Organization Address City/[facility] Co de Phone Number [address] [address], [place] [phone] * (ABNORMAL) BLOOD GASES GATO + COOX PANEL (05/21/2025 8:44 AM CDT) pH Venous 7.45(H) 7.32 - 7.42 pH 05/21/2025 8:59 AM CDT [facility] pO2 Venous 43(H) 35 - 40 mmHg 05/21/2025 8:59 AM CDT [facility] pCO2 Venous 50 40 - 50 mmHg 05/21/2025 8:59 AM CDT [facility] HCO3 Venous 34.8(H) 20 - 30 mmol/L 05/21/2025 8:59 AM T [facility] Base Excess Venous 9.1(H) -2.0 - 2.0 mmol/L 05/21/2025 8:59 AM [facility] Oxyhemoglobin Venous 72.3 % 05/10 8:59 AM [facility] Deoxyhemoglobin (HHB) Venous % 24.2 % 05/21/2025 8:59 AM [facility] Methemoglobin <0.8 0.0 - 2.0 % 05/21/2025 8:59 AM [facility] Carboxyhemoglobin 3.0(H) 0.0 - 2.0 % 2024 8:59 AM [facility] O2 Content Venous 14.6 Interpret within clinical context ml/dL 05/21/2025 8:59 AM [facility] Hemoglobin by COOX 14.4 12.0 - 15.6 g/dL 05/21/2025 8:59 AM [facility] O2 Saturation Venous 75 >=70 % 05/10 8:59 AM [facility] FI O2 Mixed Venous 30.0 % 2024 8:59 AM [facility] Blood BLOOD SPECIMEN / Unknown Venipuncture / Unknown 05/21/2025 8:44 AM CDT 05/21/2025 8:[address] [facility] - 05/21/2025 8:59 AM [facility] Carboxyhemoglobin Normal Concentration: Non-smokers: 0-2%; Smokers: 0-9%; Toxic: >20% us Jefry Arizmendi MD LAB - BLOOD GASES ORDERABLES F inal Result [facility] [address] [place] [address], [facility] [phone] * LACTIC ACID BLOOD (05/21/2025 8:44 AM T) Lactic Acid-Stat 1.9 <=2.0 mmol/L 05/21/2025 9:29 AM [facility] Blood BLOOD SPECIMEN / Unknown Venipuncture / Unknown 05/21/2025 8:44 AM CDT 05/21/2025 9:00 AM CDT Jefry Arizmendi MD LAB - CHEMISTRY ORDERABLES Fin al Result Performing Organization Address City/[facility]/ZIP Co de Phone Number [address] [address], [place] [phone] * MAGNESIUM BLOOD (05/21/2025 8:44 AM CDT) Pathologist [facility] [place] Magnesium 1.9 1.6 - 2.6 mg/dL 05/21/2025 9:33 AM CDT [facility] Blood BLOOD SPECIMEN / Unknown Venipuncture / Unknown 05/21/2025 8:44 AM CDT 05/21/2025 9:00 AM CDT Adryan Shabazz MD LAB - CHEMISTRY ORDERABLES Final Result Performing Organization Address [facility] Co de Phone Number [address] [address], [facility] [phone] * (ABNORMAL) GLUCOSE - POINT OF CARE (05/21/2025 3:29 AM CDT) [facility] Glucose WB/POC 170(H) 70 - 99 mg/dL 05/21/2025 3:34 AM CDT [facility] Specimen Type Arterial/C apillary 05/21/2025 3:34 AM CDT [facility] Blood BLOOD SPECIMEN / Unknown 05/21/2025 3:29 AM CDT 05/21/2025 3:33 AM CDT us Jefry Arizmendi MD LAB - POINT OF CARE ORDERABLES Final Result Performing Organization Address City/[facility]/ZIP Co de Phone Number [address] [address], [place] [phone] * (ABNORMAL) LACTIC ACID BLOOD (05/21/2025 3:29 AM CDT) [facility] Lactic Acid-Stat 2.2(H) <=2.0 mmol/L 05/21/2025 4:08 AM CDT [facility] Blood BLOOD SPECIMEN / Unknown Venipuncture / Unknown 05/21/2025 3:29 AM CDT 05/21/2025 3:39 AM CDT Jefry Arizmendi MD LAB - CHEMISTRY ORDERABLES Fin al Result [address] [address], [facility] [phone] * MAGNESIUM BLOOD (05/21/2025 3:29 AM CDT) Magnesium 1.9 1.6 - 2.6 mg/dL 05/21/2025 4:07 AM CDT [facility] Blood BLOOD SPECIMEN / Unknown Venipuncture / Unknown 05/21/2025 3:29 AM CDT 05/21/2025 3:39 AM CDT Adryan Shabazz MD LAB - CHEMISTRY ORDERABLES Final Result Performing Organization Address City/[facility]/ZIP Co de Phone Number [address] [address], [facility] [phone] * (ABNORMAL) CBC W AUTO DIFFERENTIAL (05/21/2025 3:29 AM CDT) WBC 9.1 4.0 - 10.7 x10E9/L 05/21/2025 3:51 AM [facility] RBC Count 4.21 3.90 - 5.20 x10E12/L 05/21/2025 3:51 AM [facility] Hemoglobin 13.8 11.9 - 15.8 g/dL 05/21/2025 3:51 AM [facility] Hematocrit 40.2 34.8 - 46.1 % 05/21/2025 3:51 AM [facility] MCV 95.5 80.0 - 98.0 fL 05/21/2025 3:51 AM [facility] MCH 32.8 26.7 - 33.6 pg 05/21/2025 3:51 AM [facility] MCHC 34.3 31.7 - 36.3 g/dL 05/21/2025 3:51 AM [facility] RDW-CV 17.9(H) 11.3 - 14.8 % 05/21/2025 3:51 AM [facility] Platelet Count 149(L) 150 - 420 x10E9/L 05/21/2025 3:51 AM [facility] MPV 9.3 7.8 - 11.4 fL 05/21/2025 3:51 AM [facility] Neutrophil % 79.1(H) 41.0 - 74.0 % 05/21/2025 3:51 AM [facility] Lymphocyte % 5.0(L) 17.0 - 47.0 % 05/21/2025 3:51 AM [facility] Monocyte % 13.5(H) 3.0 - 11.0 % 05/21/2025 3:51 AM [facility] Eosinophil % 1.0 0.0 - 7.0 % 05/21/2025 3:51 AM [facility] Basophil % 0.8 0.0 - 1.6 % 05/21/2025 3:51 AM [facility] Immature Granulocytes % 0.6 0.0 - 1.0 % 05/21/2025 3:51 AM [facility] Neutrophil Absolute 7.19 1.60 - 7.50 x10E9/L 05/21/2025 3:51 AM [facility] Lymphocyte Absolute 0.45(L) 1.00 - 4.40 x10E9/L 05/21/2025 3:51 AM [facility] Monocyte Absolute 1.22(H) 0.15 - 1.00 x10E9/L 05/21/2025 3:51 AM [facility] Eosinophil Absolute 0.09 0.00 - 0.60 x10E9/L 05/21/2025 3:51 AM [facility] Basophil Absolute 0.07 0.00 - 0.13 x10E9/L 05/21/2025 3:51 AM [facility] Blood BLOOD SPECIMEN / Unknown Venipuncture / Unknown 05/21/2025 3:29 AM CDT 05/21/2025 3:40 AM T us Carline Darby DO LAB - HEMATOLOGY ORDERABLES Ayanna george Result [facility] [address] [place] [address], [facility] [phone] * (ABNORMAL) COMPREHENSIVE METABOLIC PANEL (05/21/2025 3:29 AM CDT) BUN 29(H) 7 - 26 mg/dL 05/21/2025 4:07 AM [facility] Creatinine 0.96 0.56 - 0.96 mg/dL 05/21/2025 4:07 AM [facility] Sodium 135(L) 136 - 145 mmol/L 05/21/2025 4:07 AM [facility] Potassium 3.7 3.5 - 4.5 mmol/L 05/21/2025 4:07 AM [facility] Chloride 97(L) 98 - 107 mmol/L 05/21/2025 4:07 AM [facility] CO2 29 22 - 29 mmol/L 05/21/2025 4:07 AM [facility] Glucose 157(H) 70 - 99 mg/dL 05/21/2025 4:07 AM [facility] Calcium 8.8 8.4 - 10.2 mg/dL 05/21/2025 4:07 AM [facility] Protein Total 6.3 6.0 - 8.3 g/dL 05/21/2025 4:07 AM [facility] Albumin 2.2(L) 3.4 - 5.0 g/dL 05/21/2025 4:07 AM [facility] Bilirubin Total 9.9(H) 0.2 - 1.2 mg/dL 05/21/2025 4:07 AM [facility] Alkaline Phosphatase 254(H) 40 - 150 U/L 05/21/2025 4:07 AM [facility] ALT 21 5 - 55 U/L 05/21/2025 4:07 AM [facility] AST 37(H) 5 - 34 U/L 05/21/2025 4:07 AM [facility] Anion Gap 9 6 - 16 05/21/2025 4:07 AM [facility] BUN/Creatinine Ratio 30(H) 7 - 23 05/21/2025 4:07 AM [facility] Osmolality Calculated 289 275 - 295 mOsm/kg 05/21/2025 4:07 AM [facility] Albumin/Globulin Ratio 0.5(L) 1.1 - 2.3 05/21/2025 4:07 AM [facility] eGFR by CKD-EPI 66(L) >=90 mL/min/1.7 3 m2 05/21/2025 4:07 AM [facility] Comment:Estimated Glomerular Filtration Rate (eGFR) calculated using the CKD-EPI Creatinine Equation (2020), per the National Kid[employer] and [place] [employer] recommendations. Blood BLOOD SPECIMEN / Unknown Venipuncture / Unknown 05/21/2025 3:29 AM CDT 05/21/2025 3:39 AM CDT us Jefry Arizmendi MD LAB - CHEMISTRY ORDERABLES Fin al Result [address] [address], [facility] [phone] * (ABNORMAL) GLUCOSE - POINT OF CARE (05/21/2025 12:33 AM CDT) Glucose WB/POC 199(H) 70 - 99 mg/dL 05/21/2025 12:38 AM T [facility] Specimen Type Arterial/C apillary 05/21/2025 12:38 AM [facility] Blood BLOOD SPECIMEN / Unknown 05/21/2025 12:33 AM CDT 05/21/2025 12:38 AM CDT us Jefry Arizmendi MD LAB - POINT OF CARE ORDERABLES Final Result [address] [address], [place] [phone] * (ABNORMAL) GLUCOSE - POINT OF CARE (05/20/2025 9:41 PM CDT) [facility] Glucose WB/POC 233(H) 70 - 99 mg/dL 05/20/2025 9:45 PM CDT [facility] Specimen Type Arterial/C apillary 05/20/2025 9:45 PM CDT [facility] Blood BLOOD SPECIMEN / Unknown 05/20/2025 9:41 PM CDT 05/20/2025 9:45 PM CDT us Jefry Arizmendi MD LAB - POINT OF CARE ORDERABLES Final Result [address] [address], [place] [phone] * (ABNORMAL) LACTIC ACID BLOOD (05/20/2025 9:41 PM CDT) [facility] Lactic Acid-Stat 2.9(H) <=2.0 mmol/L 05/20/2025 10:20 PM CDT [facility] Blood BLOOD SPECIMEN / Unknown Venipuncture / Unknown 05/20/2025 9:41 PM CDT 05/20/2025 9:52 PM CDT us Jefry Arizmendi MD LAB - CHEMISTRY ORDERABLES Fin al Result [address] [address], [place] [phone] * MAGNESIUM BLOOD (05/20/2025 9:41 PM CDT) [facility] Magnesium 2.0 1.6 - 2.6 mg/dL 05/20/2025 10:20 PM CDT [facility] Blood BLOOD SPECIMEN / Unknown Venipuncture / Unknown 05/20/2025 9:41 PM CDT 05/20/2025 9:52 PM CDT Adryan Shabazz MD LAB - CHEMISTRY ORDERABLES Final Result [facility] [address] [place] [address], [facility] [phone] * XR Abdomen Kub Portable (05/20/2025 6:44 PM CDT) Anatomical Region Laterality Modality Abdomen Digital Radiogra phy 05/21/2025 9:15 AM CDT Impressions 05/21/2025 9:15 AM CDT IMPRESSION: Enteric tube terminates in the gastric body. > Interpreting Provider: Felipe Munoz MD on 05/21/2025 9:15 AM Narrative 05/21/2025 9:15 AM CDT PROCEDURE: XR ABDOMEN KUB PORTABLE DATE/TIME OF EXAM: 05/20/2025 6:44 PM CLINICAL INFORMATION: None relevant/not provided if blank. Indication: I48.91: Atrial fibrillation, unspecified type (HCC) Additional History: COMPARISON: 05/17/2025 Procedure Note Felipe Munoz MD - 05/21/2025 PROCEDURE: XR ABDOMEN KUB PORTABLE DATE/TIME OF EXAM: 05/20/2025 6:44 PM CLINICAL INFORMATION: None relevant/not provided if blank. Indication: I48.91: Atrial fibrillation, unspecified type (HCC) Additional History: COMPARISON: 05/17/2025 IMPRESSION: Enteric tube terminates in the gastric body. > Interpreting Provider: Felipe Munoz MD on 05/21/2025 9:15 AM Linda Lezama MD DIAGNOSTIC IMAGING ORDERABLE S Final Result * CT Head Wo Contrast (05/20/2025 6:18 PM CDT) Anatomical Region Laterality Modality Head Computed Tomogra phy 05/20/2025 6:39 PM CDT Impressions 05/20/2025 6:46 PM CDT IMPRESSION: 1.No intracranial hemorrhage, interval infarction or significant interval changes in the brain are identified.. 2.The previously seen fluid and left side the sinuses is resolved. A small volume of layering fluid in the left sphenoid sinus and mild mucosal thickening of the right assessment sinus and the right maxillary sinus are new from the prior study. > Interpreting Provider: Tripp Pablo MD on 05/20/2025 6:46 PM Narrative 05/20/2025 6:46 PM CDT PROCEDURE: CT HEAD WO CONTRAST DATE/TIME OF EXAM: 05/20/2025 6:18 PM CLINICAL INFORMATION: None relevant/not provided if blank. Indication: S06.9X9S: Traumatic brain injury with loss of consciousness, sequela CT OF THE HEAD WITHOUT CONTRAST HISTORY: S06.9X9S: Traumatic brain injury with loss of consciousness, sequela COMPARISON: CT head without contrast, 05/17/2025 TECHNIQUE: CT of the head was performed without contrast according to standard protocol. This examination was subjected to Viz. ICH. FINDINGS: No acute intra- or extra-axial hemorrhage is identified. The basilar cisterns are patent. No mass effect or midline shift is seen. There is no evidence of contusion or interval infarction. The hahn-white matter differentiation is normal. There is mild cerebral volume loss with associated ex vacuo ventricular dilatation. A small cavum vellum interpositum is present, a normal variant. Periventricular white matter hypoattenuation is nonspecific, but can be seen in the setting of chronic senescent changes. The orbital contents are normal and symmetric. The paranasal sinuses, and mastoid air cells are clear, except for Small volume layering fluid in the left sphenoid sinus and mild mucosal thickening of the right sphenoid and maxillary sinuses. The previously seen fluid in the remainder of the left-sided sinuses is resolved. The left nasogastric tube remains in place. An endotracheal tube is partially imaged.. No acute fracture is identified. There is no visible scalp swelling/hematoma. Procedure Note Tripp Pablo MD - 05/20/2025 PROCEDURE: CT HEAD WO CONTRAST DATE/TIME OF EXAM: 05/20/2025 6:18 PM CLINICAL INFORMATION: None relevant/not provided if blank. Indication: S06.9X9S: Traumatic brain injury with loss of consciousness, sequela CT OF THE HEAD WITHOUT CONTRAST HISTORY: S06.9X9S: Traumatic brain injury with loss of consciousness, sequela COMPARISON: CT head without contrast, 05/17/2025 TECHNIQUE: CT of the head was performed without contrast according to standard protocol. This examination was subjected to Viz. ICH. FINDINGS: No acute intra- or extra-axial hemorrhage is identified. The basilar cisterns are patent. No mass effect or midline shift is seen. There isno evidence of contusion or interval infarction. The hahn-white matter differentiation is normal. There is mild cerebral volume loss with associated ex vacuo ventricular dilatation. A small cavum vellum interpositum is present, a normalvariant. Periventricular white matter hypoattenuation is nonspecific, but can be seen in the setting of chronic senescent changes. The orbital contents are normal and symmetric. The paranasal sinuses,and mastoid air cells are clear, except for Small volume layering fluid in the left sphenoid sinus and mild mucosal thickening of the right sphenoid and maxillary sinuses. The previouslyseen fluid in the remainder of the left-sided sinuses is resolved. The left nasogastric tube remains in place. An endotracheal tube is partially imaged.. No acute fracture is identified. There is no visible scalp swelling/hematoma. IMPRESSION: 1.No intracranial hemorrhage, interval infarction or significantinterval changes in the brain are identified.. 2.The previously seen fluid and left side the sinuses is resolved. Asmall volume of layering fluid in the left sphenoid sinus and mild mucosal thickening of the right assessment sinus and the right maxillary sinusare new from the prior study. > Interpreting Provider: Tripp Pablo MD on 05/20/2025 6:46 PM [address] Lezama MD CT ORDERABLES Final Result * (ABNORMAL) GLUCOSE - POINT OF CARE (05/20/2025 4:57 PM CDT) Glucose WB/POC 260(H) 70 - 99 mg/dL 05/20/2025 5:00 PM CDT [facility] Specimen Type Arterial/C apillary 05/20/2025 5:00 PM CDT [facility] Blood BLOOD SPECIMEN / Unknown 05/20/2025 4:57 PM CDT 05/20/2025 5:00 PM CDT us Jefry Arizmendi MD LAB - POINT OF CARE ORDERABLES Final Result Performing Organization Address City/[facility]/ZIP Co de Phone Number [address] [address], [facility] [phone] * (ABNORMAL) LACTIC ACID BLOOD (05/20/2025 4:46 PM CDT) Pathologist [facility] [place] Lactic Acid-Stat 3.3(HH) <=2.0 mmol/L 05/20/2025 5:46 PM T [facility] Blood BLOOD SPECIMEN / Unknown Venipuncture / Unknown 05/20/2025 4:46 PM CDT 05/20/2025 5:09 PM CDT us Jefry Arizmendi MD LAB - CHEMISTRY ORDERABLES Fin al Result Performing Organization Address [facility]/ZIP Co de Phone Number [address] [address], [facility] [phone] * (ABNORMAL) RENAL FUNCTION PANEL (05/20/2025 4:46 PM CDT) [facility] BUN 27(H) 7 - 26 mg/dL 05/20/2025 5:45 PM [facility] Creatinine 1.01(H) 0.56 - 0.96 mg/dL 05/20/2025 5:45 PM [facility] Sodium 134(L) 136 - 145 mmol/L 05/20/2025 5:45 PM [facility] Potassium 3.5 3.5 - 4.5 mmol/L 05/20/2025 5:45 PM [facility] Chloride 95(L) 98 - 107 mmol/L 05/20/2025 5:45 PM [facility] CO2 28 22 - 29 mmol/L 05/20/2025 5:45 PM [facility] Glucose 252(H) 70 - 99 mg/dL 05/20/2025 5:45 PM [facility] Albumin 2.3(L) 3.4 - 5.0 g/dL 05/20/2025 5:45 PM [facility] Calcium 8.4 8.4 - 10.2 mg/dL 05/20/2025 5:45 PM CDT [facility] Phosphorus 4.8 2.9 - 5.1 mg/dL 05/20/2025 5:45 PM CDT [facility] Anion Gap 11 6 - 16 05/20/2025 5:45 PM CDT [facility] BUN/Creatinine Ratio 27(H) 7 - 23 05/20/2025 5:45 PM T [facility] Osmolality Calculated 292 275 - 295 mOsm/kg 05/20/2025 5:45 PM T [facility] eGFR by CKD-EPI 63(L) >=90 mL/min/1.7 3 m2 05/20/2025 5:45 PM T [facility] Comment:Estimated Glomerular Filtration Rate (eGFR) calculated using the CKD-EPI Creatinine Equation (2020), per the National Kidney Foundation and [place] [employer] recommendations. Blood BLOOD SPECIMEN / Unknown Venipuncture / Unknown 05/20/2025 4:46 PM CDT 05/20/2025 5:08 PM CDT Linda Lezama MD LAB - CHEMISTRY ORDERABLES F inal Result [address] [address], [place] [phone] * MAGNESIUM BLOOD (05/20/2025 4:46 PM CDT) [facility] Signature Magnesium 2.0 1.6 - 2.6 mg/dL 05/20/2025 5:34 PM CDT [facility] Blood BLOOD SPECIMEN / Unknown Venipuncture / Unknown 05/20/2025 4:46 PM CDT 05/20/2025 5:08 PM CDT Adryan Shabazz MD LAB - CHEMISTRY ORDERABLES Final Result [address] [address], [place] [phone] * (ABNORMAL) GLUCOSE - POINT OF CARE (05/20/2025 12:10 PM CDT) Glucose WB/POC 316(H) 70 - 99 mg/dL 05/20/2025 12:12 PM [facility] Specimen Type Arterial/C apillary 05/20/2025 12:12 PM [facility] Blood BLOOD SPECIMEN / Unknown 05/20/2025 12:10 PM CDT 05/20/2025 12:12 PM CDT us Jefry Arizmendi MD LAB - POINT OF CARE ORDERABLES Final Result [facility] [address] [place] [address], [facility] [phone] * (ABNORMAL) BLOOD GASES ART + COOX PANEL (05/20/2025 12:10 PM CDT) Pathologist [facility] [place] pH Arterial 7.42 7.35 - 7.45 pH 05/20/2025 12:24 PM [facility] pO2 Arterial 73(L) 80 - 100 mmHg 05/20/2025 12:24 PM [facility] pCO2 Arterial 49(H) 35 - 45 mmHg 12:24 PM [facility] HCO3 Arterial 31.8(H) 20.0 - 30.0 mmol/L 05/20/2025 12:24 PM [facility] BE Arterial 6.0(H) -2.0 - 2.0 mmol/L 05/20/2025 12:24 PM [facility] Oxyhemoglobin Arterial 93.2 % 05/20/2025 12:24 PM [facility] Dexoyhemoglobin (HHB) % 3.1 % 05/20/2025 12:24 PM [facility] Methemoglobin <0.8 0.0 - 2.0 % 05/20/2025 12:24 PM [facility] Carboxyhemoglobin 3.1(H) 0.0 - 2.0 % 2024 12:24 PM [facility] O2 Content Arterial 19.0 Interpret within clinical context ml/dL 05/20/2025 12:24 PM [facility] Hemoglobin by COOX 14.5 12.0 - 15.6 g/dL 05/20/2025 12:24 PM CDT [facility] O2 Saturation Arterial 97 90 - 100 % 05/20/2025 12:24 PM CDT [facility] FI O2 Arterial 30.0 % 05/20/2025 12:24 PM CDT [facility] Blood, arterial ARTERIAL BLOOD SPECIMEN / Unknown Arterial Puncture / Unknown 05/20/2025 12:10 PM CDT 05/20/2025 12:21 PM CDT Narrative [facility] - 05/20/2025 12:24 PM CDT Carboxyhemoglobin Normal Concentration: Non-smokers: 0-2%; Smokers: 0-9%; Toxic: >20% Linda Lezama MD LAB - BLOOD GASES ORDERABLES Final Result Performing Organization Address [facility]/ZIP Co de Phone Number [address] [address], [facility] [phone] * (ABNORMAL) LACTIC ACID BLOOD (05/20/2025 12:10 PM CDT) Pathologist [facility] [place] Lactic Acid-Stat 2.9(H) <=2.0 mmol/L 05/20/2025 12:52 PM T [facility] Blood BLOOD SPECIMEN / Unknown Venipuncture / Unknown 05/20/2025 12:10 PM CDT 05/20/2025 12:28 PM CDT us Linda Lezama MD LAB - CHEMISTRY ORDERABLES F inal Result [address] [address], [place] [phone] * ECHO CHANCE COMPLETE (05/20/2025 10:14 AM CDT) LV A4C EF 59.636 % SSM CV FUJ I PACS LV EDV A4C 84.774 ml SSM CV FU JI PACS LV ESV A4C 34.219 ml SSM CV FU JI PACS AV area pk ramón 2.961 cm SSM CV FUJI PACS AV area cont VTI 2.688 cm SSM CV FUJI PACS AV area index 1.165 cm /m SSM CV FUJI PACS Dimensionless Index 0.63 unitless SSM CV FUJI PACS LVOT diam 2.33 cm SSM CV FUJ I PACS LVOT VTI 11.495 cm SSM CV FUJ I PACS LVOT pk ramón 79.938 cm/s SSM CV F UJI PACS AV pk ramón 115.13 cm/s SSM CV FUJ I PACS AV VTI 18.234 cm SSM CV FUJ I PACS TR pk ramón 324.678 cm/s SSM CV FUJ I PACS Sinus of Valsalva 3.239 cm SS M CV FUJI PACS Ascending aorta 3.625 cm SSM CV FUJI PACS LVOT pk grad 2.556 mmHg SSM CV FUJI PACS AV mn grad 3.457 mmHg SSM CV FU JI PACS AV pk grad 5.302 mmHg SSM CV FU JI PACS Anatomical Region Laterality Modality Ultrasound 05/20/2025 2:28 PM CDT Narrative 05/22/2025 9:58 AM CDT Summary * Left ventricular systolic function has beat to beat variability due to atrial fibrillation. On average, the function is moderately reduced 35-40% by visual estimate. * Spontaneous echo contrast within the left atrial appendage. * There is an echo density visualized in the left atrial appendage most consistent with thrombus - likely chronic/calcified. See images in the report. * There is severe tricuspid valve regurgitation. Vena contracta is 0.9 cm. * There is mild mitral valve regurgitation. * Agitated saline contrast study at rest and with Valsalva is negative for a shunt. Patient Info Name: Loretta Penn Age: 64 years : 1960 Gender: Female Ht: 66 in Wt: 241 lb BSA: 2.31 m2 HR: 108 bpm BP: 97 / 66 mmHg Heart Rhythm: Atrial Fibrillation Exam Date: 05/20/2025 2:28 PM Patient Status: I/P Study Site: [facility] Primary Location: [facility] EStudy Info Technical Quality: Good Exam Type: ECHO CHANCE COMPLETE Indications I50.9 - Acute on chronic congestive heart failure, unspecified heart failure type (HCC) Contrast/Agitated Saline Contrast / Saline: Agitated Saline Amount: 10.00 ml Reaction to Contrast: no * During the study the esophageal, transgastric, and descending thoracic views were captured. * A transesophageal echocardiogram is performed. Staff Referring Physician: Linda Lezama Ordering Provider: Linda Lezama Attending Physician: Linda Lezama Fellow: Bridgett Silverio Account Services Associate: Jamila Robison Performing Physician: Linda Lezama Account Services Associate: Bridgett Silverio Complications * There were no complications prior to, during or in recovery from the transesophageal echocardiogram. Medications * The posterior pharynx was sprayed with Cetacaine spray and the patient was administered viscous Xylocaine 2% by mouth. * Moderate sedation was monitored by the performing physician, see EMR for full details. A nurse administered the sedation under the supervision of a physician. * The patient was premedicated with 6.00 mg intravenous Versed. * The patient was premedicated with 150.00 mcg intravenous Fentanyl. Procedure Details Procedure was performed at bedside in the ICU. Patient intubated per primary team. Informed consent obtained from POAs and placed in chart. The transesophageal probe was passed without difficulty into the posterior pharynx, mid-esophagus, distal esophagus, and gastric fundus. Imaging was performed at multiple levels. The patient tolerated the procedure well and there were no complications. The patient was transferred out of the examination area in satisfactory condition. Left Ventricle Left ventricular systolic function has beat to beat variability due to atrial fibrillation. On average, the function is moderately reduced 35-40% by visual estimate. Right Ventricle The right ventricle is at the upper limits of normal in size. Right ventricular systolic function is normal. Ventricular Septum No evidence for ventricular septal defect by two dimensional and colorflow Doppler imaging. Left Atrium The left atrium is severely dilated on visual estimation. There is spontaneous echo contrast in the left atrium but no mass or thrombus formation noted. Right Atrium The right atrium is dilated. No mass or thrombus formation in the right atrium. Atrial Septum Intact interatrial septum visualized by 2D and color Doppler and agitated saline imaging. Agitated saline contrast study at rest and with Valsalva is negative for a shunt. Atrial Appendage Left atrial appendage is normal in shape with reduced velocity, 19 cm/s. Spontaneous echo contrast within the left atrial appendage. There is an echo density visualized in the left atrial appendage most consistent with thrombus - likely chronic/calcified. See images in the report. Aortic Valve Trileaflet aortic valve. There is no aortic valve stenosis with a peak velocity of 1.2 m/s, mean gradient of 3 mmHg, and aortic valve area of 2.69 cm2 by Continuity Equation. There is no aortic valve regurgitation. Pulmonic Valve The pulmonic valve is normal. There is mild pulmonic regurgitation. There is no pulmonic valve stenosis. Mitral Valve Mitral valve is structurally and functionally normal to two-dimensional, color flow Doppler and Doppler interrogation. There is mild mitral valve regurgitation. There is no mitral valve stenosis. Tricuspid Valve The tricuspid valve is structurally but poorly coapting. There is severe tricuspid valve regurgitation. Vena contracta is 0.9 cm. There is no tricuspid valve stenosis. Pericardium/Pleural There is a small posterior pericardial effusion. Aorta The aortic root at the sinus of Valsalva is normal in size measuring 3.2 cm with an index of 1.4 cm/m2. The ascending aorta is normal in size measuring 3.6 cm with an index of 1.6 cm/m2. Borderline plaque in the ascending, transverse and descending segment(s) of the aorta. Measurements Left Ventricular Outflow Tract Name Value Normal LVOT 2D LVOT Diameter 2.3 cm LVOT Area 4.3 cm2 LVOT Doppler LVOT Peak Velocity 0.8 m/s LVOT Peak Gradient 3 mmHg LVOT Mean Velocity 52.07 cm/s LVOT Mean Gradient 1 mmHg LVOT VTI 11.5 cm LVOT VTI/AV VTI Ratio 0.6 LVOT Stroke Volume 49 ml LVOT Stroke Volume Index 21 ml/m2 35-58 Tricuspid Valve Name Value Normal TV Regurgitation Doppler TR Peak Velocity 3.2 m/s TR Peak Gradient 42 mmHg TR Vena Contracta 7.95 mm Aorta Name Value Normal Ascending Aorta Sinus of Valsalva Diameter 3.2 cm 2.4-3.6 Sinus of Valsalva Index 1.4 cm/m2 1.4-2.2 Asc Ao Diameter 3.6 cm 1.9-3.5 Asc Ao Diameter Index 1.6 cm/m2 1.0-2.2 Aortic Valve Name Value Normal AV Doppler AV Peak Velocity 1.15 m/s AV Peak Gradient 5 mmHg AV Mean Gradient 3 mmHg AV VTI 18 cm AV Area (Cont Eq VTI) 2.69 cm2 >=2.00 AV Area (Cont Eq Ramón) 2.96 cm2 AV DI (VTI) 0.63 AV DI (Ramón) 0.69 AV Regurgitation 2D LVOT Area 4.26 cm2 Ventricles Name Value Normal LV Fractional Shortening/Ejection Fraction 2D/MM LV Diastolic Volume (4C MOD) 85 ml LV EF (4C MOD) 60 % LV Diastolic Length (4C) 8.7 cm LV Systolic Length (4C) 7.4 cm LV Stroke Volume (4C MOD) 51 ml Atria Name Value Normal LA/RA Appendage LA Sandra Peak Emptying Velocity 19 cm/s Report Signatures Finalized by Linda Lezama on 05/22/2025 09:58 AM Reviewed by Fellow Bridgett Silverio on 05/21/2025 02:10 PM Procedure Note Linda Lezama MD - 05/22/2025 Summary * Left ventricular systolic function has beat to beat variability dueto atrial fibrillation. On average, the function is moderately [id number]% by visual estimate. * Spontaneous echo contrast within the left atrial appendage. * There is an echo density visualized in the left atrial appendagemost consistent with thrombus - likely chronic/calcified. See images in the report. * There is severe tricuspid valve regurgitation. Vena contracta is 0.9cm. * There is mild mitral valve regurgitation. * Agitated saline contrast study at rest and with Valsalva is negativefor a shunt. Patient Info Name: Loretta Penn Age: 64 years : 1960 Gender: Female Ht: 66 in Wt: 241 lb BSA: 2.31 m2 HR: 108 bpm BP: 97 / 66 mmHg Heart Rhythm: Atrial Fibrillation Exam Date: 05/20/2025 2:28 PM Patient Status: I/P Study Site: [facility] Primary Location: [facility] EStudy Info Technical Quality: Good Exam Type: ECHO CHANCE COMPLETE Indications I50.9 - Acute on chronic congestive heart failure, unspecifiedheart failure type (HCC) Contrast/Agitated Saline Contrast / Saline: Agitated Saline Amount: 10.00 ml Reaction to Contrast: no * During the study the esophageal, transgastric, and descending thoracicviews were captured. * A transesophageal echocardiogram is performed. Staff Referring Physician: Linda Lezama Ordering Provider: Linda Lezama Attending Physician: Linda Lezama Fellow: Bridgett Silverio Account Services Associate: Jamila Robison Performing Physician: Linda Lezama Account Services Associate: Bridgett Silverio Complications * There were no complications prior to, during or in recovery from the transesophageal echocardiogram. Medications * The posterior pharynx was sprayed with Cetacaine spray and the patientwas administered viscous Xylocaine 2% by mouth. * Moderate sedation was monitored by the performing physician, see EMRfor full details. A nurse administered the sedation under the supervision ofa physician. * The patient was premedicated with 6.00 mg intravenous Versed. * The patient was premedicated with 150.00 mcg intravenous Fentanyl. Procedure Details Procedure was performed at bedside in the ICU. Patient intubated perprimary team. Informed consent obtained from POAs and placed in chart. The transesophageal probe was passed without difficulty into the posterior pharynx, mid-esophagus, distal esophagus, and gastric fundus. Imagingwas performed at multiple levels. The patient tolerated the procedure welland there were no complications. The patient was transferred out of the examination area in satisfactory condition. Left Ventricle Left ventricular systolic function has beat to beat variability due to atrial fibrillation. On average, the function is moderately [id number]% by visual estimate. Right Ventricle The right ventricle is at the upper limits of normal in size. Right ventricular systolic function is normal. Ventricular Septum No evidence for ventricular septal defect by two dimensional andcolorflow Doppler imaging. Left Atrium The left atrium is severely dilated on visual estimation. There is spontaneous echo contrast in the left atrium but no mass or thrombusformation noted. Right Atrium The right atrium is dilated. No mass or thrombus formation in theright atrium. Atrial Septum Intact interatrial septum visualized by 2D and color Doppler andagitated saline imaging. Agitated saline contrast study at rest and with Valsalvais negative for a shunt. Atrial Appendage Left atrial appendage is normal in shape with reduced velocity, 19cm/s. Spontaneous echo contrast within the left atrial appendage. There is anecho density visualized in the left atrial appendage most consistent withthrombus - likely chronic/calcified. See images in the report. Aortic Valve Trileaflet aortic valve. There is no aortic valve stenosis with a peak velocity of 1.2 m/s, mean gradient of 3 mmHg, and aortic valve area of2.69 cm2 by Continuity Equation. There is no aortic valve regurgitation. Pulmonic Valve The pulmonic valve is normal. There is mild pulmonic regurgitation.There is no pulmonic valve stenosis. Mitral Valve Mitral valve is structurally and functionally normal totwo-dimensional, color flow Doppler and Doppler interrogation. There is mild mitral valve regurgitation. There is no mitral valve stenosis. Tricuspid Valve The tricuspid valve is structurally but poorly coapting. There issevere tricuspid valve regurgitation. Vena contracta is 0.9 cm. There is no tricuspid valve stenosis. Pericardium/Pleural There is a small posterior pericardial effusion. Aorta The aortic root at the sinus of Valsalva is normal in size measuring 3.2cm with an index of 1.4 cm/m2. The ascending aorta is normal in sizemeasuring 3.6 cm with an index of 1.6 cm/m2. Borderline plaque in the ascending, transverse and descending segment(s) of the aorta. Measurements Left Ventricular Outflow Tract Name Value Normal LVOT 2D LVOT Diameter 2.3 cm LVOT Area 4.3 cm2 LVOT Doppler LVOT Peak Velocity 0.8 m/s LVOT Peak Gradient 3 mmHg LVOT Mean Velocity 52.07 cm/s LVOT Mean Gradient 1 mmHg LVOT VTI 11.5 cm LVOT VTI/AV VTI Ratio 0.6 LVOT Stroke Volume 49 ml LVOT Stroke Volume Index 21 ml/m2 35-58 Tricuspid Valve Name Value Normal TV Regurgitation Doppler TR Peak Velocity 3.2 m/s TR Peak Gradient 42 mmHg TR Vena Contracta 7.95 mm Aorta Name Value Normal Ascending Aorta Sinus of Valsalva Diameter 3.2 cm 2.4-3.6 Sinus of Valsalva Index 1.4 cm/m2 1.4-2.2 Asc Ao Diameter 3.6 cm 1.9-3.5 Asc Ao Diameter Index 1.6 cm/m2 1.0-2.2 Aortic Valve Name Value Normal AV Doppler AV Peak Velocity 1.15 m/s AV Peak Gradient 5 mmHg AV Mean Gradient 3 mmHg AV VTI 18 cm AV Area (Cont Eq VTI) 2.69 cm2 >=2.00 AV Area (Cont Eq Ramón) 2.96 cm2 AV DI (VTI) 0.63 AV DI (Ramón) 0.69 AV Regurgitation 2D LVOT Area 4.26 cm2 Ventricles Name Value Normal LV Fractional Shortening/Ejection Fraction 2D/MM LV Diastolic Volume (4C MOD) 85 ml LV EF (4C MOD) 60 % LV Diastolic Length (4C) 8.7 cm LV Systolic Length (4C) 7.4 cm LV Stroke Volume (4C MOD) 51 ml Atria Name Value Normal LA/RA Appendage LA Sandra Peak Emptying Velocity 19 cm/s Report Signatures Finalized by Linda Lezama on 05/22/2025 09:58 AM Reviewed by Fellow Bridgett Silverio on 05/21/2025 02:10 PM Linda Lezama MD ECHO CUPID Final Result * EKG 12-Lead (05/20/2025 9:26 AM CDT) Ventricular Rate 125 BPM [facility] QRS Duration ms 116 ms [facility] Q-T Interval ms 338 ms [facility] QTC Calculation (Bezet) 487 ms [facility] Calculated R Duvall 100 degrees [facility] MUSE Calculated T Duvall -84 degrees [facility] Interpretation EKG ATRIAL FIBRILLATION WITH RAPID VENTRICULAR RESPONSE LOW VOLTAGE QRS ANTEROLATERAL INFARCT , AGE UNDETERMINED ABNORMAL ECG WHEN COMPARED WITH ECG OF 20-MAY-2025 09:25 NO SIGNIFICANT CHANGE WAS FOUND Confirmed by DAREK PARADA MD ([id number]) on 05/21/2025 8:38:24 AM [facility] MUSE 05/20/2025 9:26 AM CDT 05/21/2025 8:38 AM CDT Linda Lezama MD ECG ORDERABLES Edited Resul t - Final [facility] MUSE * EKG 12-Lead (05/20/2025 9:25 AM CDT) Ventricular Rate 134 BPM [facility] QRS Duration ms 114 ms [facility] Q-T Interval ms 260 ms [facility] QTC Calculation (Bezet) 388 ms [facility] MUSE Calculated R Duvall 99 degrees [facility] MUSE Calculated T Duvall -90 degrees [facility] MUSE Interpretation EKG ATRIAL FIBRILLATION WITH RAPID VENTRICULAR RESPONSE WITH PREMATURE VENTRICULAR OR ABERRANTLY CONDUCTED COMPLEXES RIGHTWARD AXIS LOW VOLTAGE QRS CANNOT RULE OUT ANTEROSEPTAL INFARCT , AGE UNDETERMINED ABNORMAL ECG WHEN COMPARED WITH ECG OF 17-MAY-2025 18:14 NO SIGNIFICANT CHANGE WAS FOUND Confirmed by DAREK PARADA MD ([id number]) on 05/21/2025 8:37:09 AM [facility] MUSE 05/20/2025 9:25 AM CDT 05/21/2025 8:37 AM CDT us Linda Lezama MD ECG ORDERABLES Edited Resul t - Final [facility] MALLORY * (ABNORMAL) COMPREHENSIVE METABOLIC PANEL (05/20/2025 8:45 AM [facility]) BUN 26 7 - 26 mg/dL 05/20/2025 9:54 AM [facility] Creatinine 1.02(H) 0.56 - 0.96 mg/dL 05/20/2025 9:54 AM [facility] Sodium 132(L) 136 - 145 mmol/L 05/20/2025 9:54 AM [facility] Potassium 4.0 3.5 - 4.5 mmol/L 05/20/2025 9:54 AM [facility] Chloride 96(L) 98 - 107 mmol/L 05/20/2025 9:54 AM [facility] CO2 29 22 - 29 mmol/L 05/20/2025 9:54 AM [facility] Glucose 266(H) 70 - 99 mg/dL 05/20/2025 9:54 AM [facility] Calcium 8.2(L) 8.4 - 10.2 mg/dL 05/20/2025 9:54 AM [facility] Protein Total 5.9(L) 6.0 - 8.3 g/dL 05/20/2025 9:54 AM [facility] Albumin 2.2(L) 3.4 - 5.0 g/dL 05/20/2025 9:54 AM [facility] Bilirubin Total 9.4(H) 0.2 - 1.2 mg/dL 05/20/2025 9:54 AM [facility] Alkaline Phosphatase 259(H) 40 - 150 U/L 05/20/2025 9:54 AM [facility] ALT 25 5 - 55 U/L 05/20/2025 9:54 AM [facility] AST 37(H) 5 - 34 U/L 05/20/2025 9:54 AM [facility] Anion Gap 7 6 - 16 05/20/2025 9:54 AM [facility] BUN/Creatinine Ratio 25(H) 7 - 23 05/20/2025 9:54 AM [facility] Osmolality Calculated 288 275 - 295 mOsm/kg 05/20/2025 9:54 AM [facility] Albumin/Globulin Ratio 0.6(L) 1.1 - 2.3 05/20/2025 9:54 AM [facility] eGFR by CKD-EPI 62(L) >=90 mL/min/1.7 3 m2 05/20/2025 9:54 AM [facility] Comment:Estimated Glomerular Filtration Rate (eGFR) calculated using the CKD-EPI Creatinine Equation (2020), per the National Kid[employer] and [place] [employer] recommendations. Blood BLOOD SPECIMEN / Unknown Venipuncture / Unknown 05/20/2025 8:45 AM CDT 05/20/2025 8:54 AM T us Linda Lezama MD LAB - CHEMISTRY ORDERABLES F inal Result [facility] [address] [place] [address], [facility] [phone] * (ABNORMAL) RENAL FUNCTION PANEL (05/20/2025 8:45 AM CDT) BUN 26 7 - 26 mg/dL 05/20/2025 9:39 AM [facility] Creatinine 1.02(H) 0.56 - 0.96 mg/dL 05/20/2025 9:39 AM [facility] Sodium 132(L) 136 - 145 mmol/L 05/20/2025 9:39 AM [facility] Potassium 4.0 3.5 - 4.5 mmol/L 05/20/2025 9:39 AM [facility] Chloride 96(L) 98 - 107 mmol/L 05/20/2025 9:39 AM [facility] CO2 29 22 - 29 mmol/L 05/20/2025 9:39 AM [facility] Glucose 266(H) 70 - 99 mg/dL 05/20/2025 9:39 AM [facility] Albumin 2.2(L) 3.4 - 5.0 g/dL 05/20/2025 9:39 AM [facility] Calcium 8.2(L) 8.4 - 10.2 mg/dL 05/20/2025 9:39 AM [facility] Phosphorus 2.4(L) 2.9 - 5.1 mg/dL 05/20/2025 9:39 AM [facility] Anion Gap 7 6 - 16 05/20/2025 9:39 AM [facility] BUN/Creatinine Ratio 25(H) 7 - 23 05/20/2025 9:39 AM [facility] Osmolality Calculated 288 275 - 295 mOsm/kg 05/20/2025 9:39 AM [facility] eGFR by CKD-EPI 62(L) >=90 mL/min/1.7 3 m2 05/20/2025 9:39 AM [facility] Comment:Estimated Glomerular Filtration Rate (eGFR) calculated using the CKD-EPI Creatinine Equation (2020), per the [employer] Kid[employer] and [place] [employer] recommendations. Blood BLOOD SPECIMEN / Unknown Venipuncture / Unknown 05/20/2025 8:45 AM CDT 05/20/2025 8:54 AM CDT Linda Lezama MD LAB - CHEMISTRY ORDERABLES F inal Result [address] [address], [facility] [phone] * MAGNESIUM BLOOD (05/20/2025 8:45 AM CDT) Magnesium 2.1 1.6 - 2.6 mg/dL 05/20/2025 9:39 AM T [facility] Blood BLOOD SPECIMEN / Unknown Venipuncture / Unknown 05/20/2025 8:45 AM CDT 05/20/2025 8:54 AM CDT Adryan Shabazz MD LAB - CHEMISTRY ORDERABLES Final Result [address] [address] [place] [phone] * (ABNORMAL) BLOOD GASES ART + COOX PANEL (05/20/2025 8:45 AM [facility]) pH Arterial 7.43 7.35 - 7.45 pH 05/20/2025 8:55 AM [facility] pO2 Arterial 77(L) 80 - 100 mmHg 05/20/2025 8:55 AM [facility] pCO2 Arterial 51(H) 35 - 45 mmHg 8:55 AM [facility] HCO3 Arterial 33.9(H) 20.0 - 30.0 mmol/L 05/20/2025 8:55 AM [facility] BE Arterial 8.0(H) -2.0 - 2.0 mmol/L 05/20/2025 8:55 AM [facility] Oxyhemoglobin Arterial 93.6 % 05/20/2025 8:55 AM [facility] Dexoyhemoglobin (HHB) % 2.4 % 05/20/2025 8:55 AM [facility] Methemoglobin 0.8 0.0 - 2.0 % 05/20/2025 8:55 AM [facility] Carboxyhemoglobin 3.2(H) 0.0 - 2.0 % 2024 8:55 AM [facility] O2 Content Arterial 18.8 Interpret within clinical context ml/dL 05/20/2025 8:55 AM [facility] Hemoglobin by COOX 14.3 12.0 - 15.6 g/dL 05/20/2025 8:55 AM [facility] O2 Saturation Arterial 98 90 - 100 % 05/20/2025 8:55 AM [facility] FI O2 Arterial 40.0 % 05/20/2025 8:55 AM [facility] Blood, arterial ARTERIAL BLOOD SPECIMEN / Unknown Arterial Puncture / Unknown 05/20/2025 8:45 AM CDT 05/20/2025 8:[address] [facility] - 05/20/2025 8:55 AM CDT Carboxyhemoglobin Normal Concentration: Non-smokers: 0-2%; Smokers: 0-9%; Toxic: >20% Linda Lezama MD LAB - BLOOD GASES ORDERABLES Final Result [address] [address], [place] [phone] * (ABNORMAL) LACTIC ACID BLOOD (05/20/2025 8:45 AM CDT) [facility] Lactic Acid-Stat 2.6(H) <=2.0 mmol/L 05/20/2025 9:38 AM CDT [facility] Blood BLOOD SPECIMEN / Unknown Venipuncture / Unknown 05/20/2025 8:45 AM CDT 05/20/2025 8:58 AM CDT Linda Lezama MD LAB - CHEMISTRY ORDERABLES F inal Result Performing Organization Address City/[facility]/ZIP Co de Phone Number [address] [address], [place] [phone] * (ABNORMAL) GLUCOSE - POINT OF CARE (05/20/2025 5:22 AM CDT) [facility] Glucose WB/POC 268(H) 70 - 99 mg/dL 05/20/2025 5:23 AM CDT [facility] Specimen Type Arterial/C apillary 05/20/2025 5:23 AM CDT [facility] Blood BLOOD SPECIMEN / Unknown 05/20/2025 5:22 AM CDT 05/20/2025 5:23 AM CDT Linda Lezama MD LAB - POINT OF CARE ORDERABL ES Final Result Performing Organization Address City/[facility]/ZIP Co de Phone Number [address] [address], [place] [phone] * OSMOLALITY URINE (05/20/2025 3:42 AM CDT) [facility] Osmolality Urine 444 50 - 1,200 mOsm/kg 05/20/2025 4:07 AM [facility] Urine URINE SPECIMEN OBTAINED BY CLEAN CATCH PROCEDURE / Unknown Collection / Unknown 05/20/2025 3:42 AM CDT 05/20/2025 3:46 AM CDT us Linda Lezama MD LAB - URINE CHEMISTRY ORDERA BLES Final Result [facility] [address] [place] [address], [facility] [phone] * (ABNORMAL) BLOOD GASES GATO + COOX PANEL (05/20/2025 3:06 AM CDT) pH Venous 7.38 7.32 - 7.42 pH 05/20/2025 3:28 AM [facility] pO2 Venous 54(H) 35 - 40 mmHg 05/20/2025 3:28 AM [facility] pCO2 Venous 58(H) 40 - 50 mmHg 05/20/2025 3:28 AM [facility] HCO3 Venous 34.3(H) 20 - 30 mmol/L 05/20/2025 3:28 AM [facility] Base Excess Venous 7.1(H) -2.0 - 2.0 mmol/L 05/20/2025 3:28 AM [facility] Oxyhemoglobin Venous 82.8 % 05/10 3:28 AM [facility] Deoxyhemoglobin (HHB) Venous % 14.4 % 05/20/2025 3:28 AM [facility] Methemoglobin <0.8 0.0 - 2.0 % 05/20/2025 3:28 AM [facility] Carboxyhemoglobin 2.4(H) 0.0 - 2.0 % 2024 3:28 AM [facility] O2 Content Venous 17.1 Interpret within clinical context ml/dL 05/20/2025 3:28 AM [facility] Hemoglobin by COOX 14.7 12.0 - 15.6 g/dL 05/20/2025 3:28 AM [facility] O2 Saturation Venous 85 >=70 % 05/10 3:28 AM [facility] FI O2 Mixed Venous 40.0 % 2024 3:28 AM [facility] Blood BLOOD SPECIMEN / Unknown Venipuncture / Unknown 05/20/2025 3:06 AM CDT 05/20/2025 3:22 AM T Narrative [facility] - 05/20/2025 3:28 AM [facility] Carboxyhemoglobin Normal Concentration: Non-smokers: 0-2%; Smokers: 0-9%; Toxic: >20% us Linda Lezama MD LAB - BLOOD GASES ORDERABLES Final Result [facility] [address] [place] [address], [facility] [phone] * (ABNORMAL) BLOOD GASES ART + COOX PANEL (05/20/2025 3:06 AM [facility]) pH Arterial 7.41 7.35 - 7.45 pH 05/20/2025 3:28 AM [facility] pO2 Arterial 97 80 - 100 mmHg 05/20/2025 3:28 AM [facility] pCO2 Arterial 51(H) 35 - 45 mmHg 3:28 AM [facility] HCO3 Arterial 32.3(H) 20.0 - 30.0 mmol/L 05/20/2025 3:28 AM [facility] BE Arterial 6.2(H) -2.0 - 2.0 mmol/L 05/20/2025 3:28 AM [facility] Oxyhemoglobin Arterial 95.2 % 05/20/2025 3:28 AM [facility] Dexoyhemoglobin (HHB) % 1.4 % 05/20/2025 3:28 AM [facility] Methemoglobin <0.8 0.0 - 2.0 % 05/20/2025 3:28 AM [facility] Carboxyhemoglobin 2.8(H) 0.0 - 2.0 % 2024 3:28 AM CDT [facility] O2 Content Arterial 19.8 Interpret within clinical context ml/dL 05/20/2025 3:28 AM T [facility] Hemoglobin by COOX 14.7 12.0 - 15.6 g/dL 05/20/2025 3:28 AM T [facility] O2 Saturation Arterial 99 90 - 100 % 05/20/2025 3:28 AM T [facility] FI O2 Arterial 40.0 % 05/20/2025 3:28 AM T [facility] Blood, arterial ARTERIAL BLOOD SPECIMEN / Unknown Arterial Puncture / Unknown 05/20/2025 3:06 AM CDT 05/20/2025 3:22 AM CDT Narrative [facility] - 05/20/2025 3:28 AM CDT Carboxyhemoglobin Normal Concentration: Non-smokers: 0-2%; Smokers: 0-9%; Toxic: >20% Linda Lezama MD LAB - BLOOD GASES ORDERABLES Final Result [address] [address], [facility] [phone] * (ABNORMAL) LACTIC ACID BLOOD (05/20/2025 3:06 AM CDT) [facility] Lactic Acid-Stat 2.4(H) <=2.0 mmol/L 05/20/2025 4:03 AM [facility] Blood BLOOD SPECIMEN / Unknown Venipuncture / Unknown 05/20/2025 3:06 AM CDT 05/20/2025 3:25 AM CDT us Linda Lezama MD LAB - CHEMISTRY ORDERABLES F inal Result [address] [address], [facility] [phone] * (ABNORMAL) RENAL FUNCTION PANEL (05/20/2025 3:06 AM CDT) Pathologist [facility] [place] BUN 23 7 - 26 mg/dL 05/20/2025 3:57 AM [facility] Creatinine 1.05(H) 0.56 - 0.96 mg/dL 05/20/2025 3:57 AM [facility] Sodium 132(L) 136 - 145 mmol/L 05/20/2025 3:57 AM [facility] Potassium 5.1(H) 3.5 - 4.5 mmol/L 05/20/2025 3:57 AM [facility] Chloride 96(L) 98 - 107 mmol/L 05/20/2025 3:57 AM [facility] CO2 29 22 - 29 mmol/L 05/20/2025 3:57 AM [facility] Glucose 232(H) 70 - 99 mg/dL 05/20/2025 3:57 AM [facility] Albumin 2.3(L) 3.4 - 5.0 g/dL 05/20/2025 3:57 AM [facility] Calcium 8.3(L) 8.4 - 10.2 mg/dL 05/20/2025 3:57 AM [facility] Phosphorus 2.7(L) 2.9 - 5.1 mg/dL 05/20/2025 3:57 AM [facility] Anion Gap 7 6 - 16 05/20/2025 3:57 AM [facility] BUN/Creatinine Ratio 22 7 - 23 05/20/2025 3:57 AM [facility] Osmolality Calculated 285 275 - 295 mOsm/kg 05/20/2025 3:57 AM [facility] eGFR by CKD-EPI 60(L) >=90 mL/min/1.7 3 m2 05/20/2025 3:57 AM [facility] Comment:Estimated Glomerular Filtration Rate (eGFR) calculated using the CKD-EPI Creatinine Equation (2020), per the [employer] and [place] [employer] recommendations. Blood BLOOD SPECIMEN / Unknown Venipuncture / Unknown 05/20/2025 3:06 AM CDT 05/20/2025 3:26 AM CDT us Linda Lezama MD LAB - CHEMISTRY ORDERABLES F inal Result [address] [address], [facility] [phone] * OSMOLALITY BLOOD (05/20/2025 3:06 AM CDT) Pathologist [facility] [place] Osmolality [phone] - 295 mOsm/kg 05/20/2025 4:07 AM CDT [facility] Blood BLOOD SPECIMEN / Unknown Venipuncture / Unknown 05/20/2025 3:06 AM CDT 05/20/2025 3:26 AM CDT Linda Lezama MD LAB - CHEMISTRY ORDERABLES F inal Result Performing Organization Address [facility]/ZIP Co de Phone Number [address] [phone], [facility] [phone] * MAGNESIUM BLOOD (05/20/2025 3:06 AM CDT) Pathologist [facility] [place] Magnesium 2.2 1.6 - 2.6 mg/dL 05/20/2025 3:57 AM CDT [facility] Blood BLOOD SPECIMEN / Unknown Venipuncture / Unknown 05/20/2025 3:06 AM CDT 05/20/2025 3:26 AM CDT Adryan Shabazz MD LAB - CHEMISTRY ORDERABLES Final Result Performing Organization Address [facility] [facility] Co de Phone Number [address] [address], [facility] [phone] * (ABNORMAL) CBC W AUTO DIFFERENTIAL (05/20/2025 3:06 AM CDT) WBC 6.5 4.0 - 10.7 x10E9/L 05/20/2025 3:36 AM CDT [facility] RBC Count 4.21 3.90 - 5.20 x10E12/L 05/20/2025 3:36 AM CDT [facility] Hemoglobin 14.1 11.9 - 15.8 g/dL 05/20/2025 3:36 AM CDT [facility] Hematocrit 41.3 34.8 - 46.1 % 05/20/2025 3:36 AM [facility] MCV 98.1(H) 80.0 - 98.0 fL 05/20/2025 3:36 AM [facility] MCH 33.5 26.7 - 33.6 pg 05/20/2025 3:36 AM [facility] MCHC 34.1 31.7 - 36.3 g/dL 05/20/2025 3:36 AM [facility] RDW-CV 18.3(H) 11.3 - 14.8 % 05/20/2025 3:36 AM [facility] Platelet Count 136(L) 150 - 420 x10E9/L 05/20/2025 3:36 AM [facility] MPV 9.5 7.8 - 11.4 fL 05/20/2025 3:36 AM [facility] Neutrophil % 83.2(H) 41.0 - 74.0 % 05/20/2025 3:36 AM [facility] Lymphocyte % 4.0(L) 17.0 - 47.0 % 05/20/2025 3:36 AM [facility] Monocyte % 11.0 3.0 - 11.0 % 05/20/2025 3:36 AM [facility] Eosinophil % 0.6 0.0 - 7.0 % 05/20/2025 3:36 AM [facility] Basophil % 0.9 0.0 - 1.6 % 05/20/2025 3:36 AM [facility] Immature Granulocytes % 0.3 0.0 - 1.0 % 05/20/2025 3:36 AM [facility] Neutrophil Absolute 5.43 1.60 - 7.50 x10E9/L 05/20/2025 3:36 AM [facility] Lymphocyte Absolute 0.26(L) 1.00 - 4.40 x10E9/L 05/20/2025 3:36 AM [facility] Monocyte Absolute 0.72 0.15 - 1.00 x10E9/L 05/20/2025 3:36 AM [facility] Eosinophil Absolute 0.04 0.00 - 0.60 x10E9/L 05/20/2025 3:36 AM CDT [facility] Basophil Absolute 0.06 0.00 - 0.13 x10E9/L 05/20/2025 3:36 AM CDT [facility] Blood BLOOD SPECIMEN / Unknown Venipuncture / Unknown 05/20/2025 3:06 AM CDT 05/20/2025 3:25 AM CDT us Carline Darby DO LAB - HEMATOLOGY ORDERABLES Ayanna l Result [address] [address], [place] [phone] * (ABNORMAL) GLUCOSE - POINT OF CARE (05/20/2025 12:34 AM CDT) Glucose WB/POC 227(H) 70 - 99 mg/dL 05/20/2025 12:35 AM CDT [facility] Specimen Type Arterial/C apillary 05/20/2025 12:35 AM CDT [facility] Blood BLOOD SPECIMEN / Unknown 05/20/2025 12:34 AM CDT 05/20/2025 12:35 AM CDT us Linda Lezama MD LAB - POINT OF CARE ORDERABL ES Final Result Performing Organization Address [facility]/ZIP Co de Phone Number [address] [address], [place] [phone] * (ABNORMAL) BLOOD GASES ART + COOX PANEL (05/19/2025 11:33 PM CDT) pH Arterial 7.44 7.35 - 7.45 pH 05/19/2025 11:42 PM CDT [facility] pO2 Arterial 96 80 - 100 mmHg 05/19/2025 11:42 PM CDT [facility] pCO2 Arterial 51(H) 35 - 45 mmHg 11:42 PM T [facility] HCO3 Arterial 34.6(H) 20.0 - 30.0 mmol/L 05/19/2025 11:42 PM [facility] BE Arterial 8.7(H) -2.0 - 2.0 mmol/L 05/19/2025 11:42 PM [facility] Oxyhemoglobin Arterial 95.3 % 05/19/2025 11:42 PM [facility] Dexoyhemoglobin (HHB) % 1.1 % 05/19/2025 11:42 PM [facility] Methemoglobin <0.8 0.0 - 2.0 % 05/19/2025 11:42 PM [facility] Carboxyhemoglobin 2.9(H) 0.0 - 2.0 % 2024 11:42 PM [facility] O2 Content Arterial 19.5 Interpret within clinical context ml/dL 05/19/2025 11:42 PM [facility] Hemoglobin by COOX 14.5 12.0 - 15.6 g/dL 05/19/2025 11:42 PM [facility] O2 Saturation Arterial 99 90 - 100 % 05/19/2025 11:42 PM [facility] FI O2 Arterial 40.0 % 05/19/2025 11:42 PM [facility] Blood, arterial ARTERIAL BLOOD SPECIMEN / Unknown Arterial Puncture / Unknown 05/19/2025 11:33 PM T 05/19/2025 11:[address] [facility] - 05/19/2025 11:42 PM [facility] Carboxyhemoglobin Normal Concentration: Non-smokers: 0-2%; Smokers: 0-9%; Toxic: >20% us Linda Lezama MD LAB - BLOOD GASES ORDERABLES Final Result [facility] [address] [place] [address], [facility] [phone] * LACTIC ACID BLOOD (05/19/2025 11:33 PM CD) Lactic Acid-Stat 1.6 <=2.0 mmol/L 05/20/2025 12:14 AM [facility] Blood BLOOD SPECIMEN / Unknown Venipuncture / Unknown 05/19/2025 11:33 PM CDT 05/19/2025 11:40 PM CDT Linda Lezama MD LAB - CHEMISTRY ORDERABLES F inal Result [facility] [address] [place] [address], [facility] [phone] * (ABNORMAL) RENAL FUNCTION PANEL (05/19/2025 8:44 PM CDT) BUN 19 7 - 26 mg/dL 05/19/2025 9:15 PM [facility] Creatinine 1.05(H) 0.56 - 0.96 mg/dL 05/19/2025 9:15 PM [facility] Sodium 132(L) 136 - 145 mmol/L 05/19/2025 9:15 PM [facility] Potassium 3.1(L) 3.5 - 4.5 mmol/L 05/19/2025 9:15 PM [facility] Chloride 91(L) 98 - 107 mmol/L 05/19/2025 9:15 PM [facility] CO2 30(H) 22 - 29 mmol/L 05/19/2025 9:15 PM [facility] Glucose 199(H) 70 - 99 mg/dL 05/19/2025 9:15 PM [facility] Albumin 2.3(L) 3.4 - 5.0 g/dL 05/19/2025 9:15 PM [facility] Calcium 8.2(L) 8.4 - 10.2 mg/dL 05/19/2025 9:15 PM [facility] Phosphorus 2.7(L) 2.9 - 5.1 mg/dL 05/19/2025 9:15 PM [facility] Anion Gap 11 6 - 16 05/19/2025 9:15 PM [facility] BUN/Creatinine Ratio 18 7 - 23 05/19/2025 9:15 PM [facility] Osmolality Calculated 282 275 - 295 mOsm/kg 05/19/2025 9:15 PM CDT [facility] eGFR by CKD-EPI 60(L) >=90 mL/min/1.7 3 m2 05/19/2025 9:15 PM CDT [facility] Comment:Estimated Glomerular Filtration Rate (eGFR) calculated using the CKD-EPI Creatinine Equation (2020), per the [employer] and [place] [employer] recommendations. Blood BLOOD SPECIMEN / Unknown Venipuncture / Unknown 05/19/2025 8:44 PM CDT 05/19/2025 8:46 PM CDT Linda Lezama MD LAB - CHEMISTRY ORDERABLES F inal Result [address] [address], [facility] [phone] * MAGNESIUM BLOOD (05/19/2025 8:44 PM CDT) Magnesium 1.9 1.6 - 2.6 mg/dL 05/19/2025 9:15 PM T [facility] Blood BLOOD SPECIMEN / Unknown Venipuncture / Unknown 05/19/2025 8:44 PM CDT 05/19/2025 8:46 PM CDT Adryan Shabazz MD LAB - CHEMISTRY ORDERABLES Final Result Performing Organization Address [facility]/ZIP Co de Phone Number [address] [address], [facility] [phone] * (ABNORMAL) BLOOD GASES ART + COOX PANEL (05/19/2025 8:44 PM CDT) pH Arterial 7.44 7.35 - 7.45 pH 05/19/2025 8:53 PM CDT [facility] pO2 Arterial 70(L) 80 - 100 mmHg 05/19/2025 8:53 PM CDT [facility] pCO2 Arterial 54(H) 35 - 45 mmHg 8:53 PM T [facility] HCO3 Arterial 36.7(H) 20.0 - 30.0 mmol/L 05/19/2025 8:53 PM [facility] BE Arterial 10.3(H) -2.0 - 2.0 mmol/L 05/19/2025 8:53 PM [facility] Oxyhemoglobin Arterial 91.9 % 05/19/2025 8:53 PM [facility] Dexoyhemoglobin (HHB) % 4.5 % 05/19/2025 8:53 PM [facility] Methemoglobin 0.8 0.0 - 2.0 % 05/19/2025 8:53 PM [facility] Carboxyhemoglobin 2.8(H) 0.0 - 2.0 % 2024 8:53 PM [facility] O2 Content Arterial 19.5 Interpret within clinical context ml/dL 05/19/2025 8:53 PM [facility] Hemoglobin by COOX 15.1 12.0 - 15.6 g/dL 05/19/2025 8:53 PM [facility] O2 Saturation Arterial 95 90 - 100 % 05/19/2025 8:53 PM [facility] FI O2 Arterial 30.0 % 05/19/2025 8:53 PM [facility] Blood, arterial ARTERIAL BLOOD SPECIMEN / Unknown Arterial Puncture / Unknown 05/19/2025 8:44 PM CDT 05/19/2025 8:[address] [facility] - 05/19/2025 8:53 PM CDT Carboxyhemoglobin Normal Concentration: Non-smokers: 0-2%; Smokers: 0-9%; Toxic: >20% us Linda Lezama MD LAB - BLOOD GASES ORDERABLES Final Result [address] [address], [facility] [phone] * LACTIC ACID BLOOD (05/19/2025 8:44 PM CDT) Lactic Acid-Stat 1.5 <=2.0 mmol/L 05/19/2025 9:14 PM [facility] Blood BLOOD SPECIMEN / Unknown Venipuncture / Unknown 05/19/2025 8:44 PM CDT 05/19/2025 8:47 PM CDT Linda Lezama MD LAB - CHEMISTRY ORDERABLES F inal Result [address] [address], [place] [phone] * (ABNORMAL) GLUCOSE - POINT OF CARE (05/19/2025 6:59 PM CDT) Glucose WB/POC 219(H) 70 - 99 mg/dL 05/19/2025 7:00 PM CDT [facility] Specimen Type Arterial/C apillary 05/19/2025 7:00 PM CDT [facility] Blood BLOOD SPECIMEN / Unknown 05/19/2025 6:59 PM CDT 05/19/2025 7:00 PM CDT Linda Lezama MD LAB - POINT OF CARE ORDERABL ES Final Result Performing Organization Address [facility]/ZIP Co de Phone Number [address] [address], [place] [phone] * (ABNORMAL) BLOOD GASES GATO + COOX PANEL (05/19/2025 4:55 PM CDT) pH Venous 7.45(H) 7.32 - 7.42 pH 05/19/2025 5:04 PM CDT [facility] pO2 Venous 45(H) 35 - 40 mmHg 05/19/2025 5:04 PM CDT [facility] pCO2 Venous 54(H) 40 - 50 mmHg 05/19/2025 5:04 PM CDT [facility] HCO3 Venous 37.5(H) 20 - 30 mmol/L 05/19/2025 5:04 PM T [facility] Base Excess Venous 11.2(H) -2.0 - 2.0 mmol/L 05/19/2025 5:04 PM CDT [facility] Oxyhemoglobin Venous 74.9 % 05/10 5:04 PM [facility] Deoxyhemoglobin (HHB) Venous % 21.6 % 05/19/2025 5:04 PM [facility] Methemoglobin <0.8 0.0 - 2.0 % 05/19/2025 5:04 PM [facility] Carboxyhemoglobin 2.9(H) 0.0 - 2.0 % 2024 5:04 PM [facility] O2 Content Venous 15.4 Interpret within clinical context ml/dL 05/19/2025 5:04 PM [facility] Hemoglobin by COOX 14.7 12.0 - 15.6 g/dL 05/19/2025 5:04 PM [facility] O2 Saturation Venous 78 >=70 % 05/10 5:04 PM [facility] FI O2 Mixed Venous 30.0 % 2024 5:04 PM [facility] Blood BLOOD SPECIMEN / Unknown Venipuncture / Unknown 05/19/2025 4:55 PM CDT 05/19/2025 5:[address] [facility] - 05/19/2025 5:04 PM [facility] Carboxyhemoglobin Normal Concentration: Non-smokers: 0-2%; Smokers: 0-9%; Toxic: >20% us Linda Lezama MD LAB - BLOOD GASES ORDERABLES Final Result [facility] [address] [place] [address], [facility] [phone] * (ABNORMAL) BLOOD GASES ART + COOX PANEL (05/19/2025 4:55 PM CDT) pH Arterial 7.51(H) 7.35 - 7.45 pH 05/19/2025 5:04 PM [facility] pO2 Arterial 89 80 - 100 mmHg 05/19/2025 5:04 PM [facility] pCO2 Arterial 45 35 - 45 mmHg 5:04 PM [facility] HCO3 Arterial 35.9(H) 20.0 - 30.0 mmol/L 05/19/2025 5:04 PM [facility] BE Arterial 11.3(H) -2.0 - 2.0 mmol/L 05/19/2025 5:04 PM [facility] Oxyhemoglobin Arterial 95.1 % 05/19/2025 5:04 PM [facility] Dexoyhemoglobin (HHB) % 1.7 % 05/19/2025 5:04 PM [facility] Methemoglobin 0.8 0.0 - 2.0 % 05/19/2025 5:04 PM [facility] Carboxyhemoglobin 2.5(H) 0.0 - 2.0 % 2024 5:04 PM [facility] O2 Content Arterial 19.8 Interpret within clinical context ml/dL 05/19/2025 5:04 PM [facility] Hemoglobin by COOX 14.8 12.0 - 15.6 g/dL 05/19/2025 5:04 PM [facility] O2 Saturation Arterial 98 90 - 100 % 05/19/2025 5:04 PM [facility] FI O2 Arterial 30.0 % 05/19/2025 5:04 PM [facility] Blood, arterial ARTERIAL BLOOD SPECIMEN / Unknown Arterial Puncture / Unknown 05/19/2025 4:55 PM CDT 05/19/2025 5:00 PM [facility] Narrative [facility] - 05/19/2025 5:04 PM CDT Carboxyhemoglobin Normal Concentration: Non-smokers: 0-2%; Smokers: 0-9%; Toxic: >20% us Linda Lezama MD LAB - BLOOD GASES ORDERABLES Final Result [facility] [address] [place] [address], [facility] [phone] * LACTIC ACID BLOOD (05/19/2025 4:55 PM CDT) Lactic Acid-Stat 1.5 <=2.0 mmol/L 05/19/2025 5:28 PM [facility] Blood BLOOD SPECIMEN / Unknown Venipuncture / Unknown 05/19/2025 4:55 PM CDT 05/19/2025 5:00 PM CDT Linda Lezama MD LAB - CHEMISTRY ORDERABLES F inal Result [facility] [address] [place] [address], [facility] [phone] * (ABNORMAL) RENAL FUNCTION PANEL (05/19/2025 4:55 PM CDT) BUN 19 7 - 26 mg/dL 05/19/2025 5:28 PM [facility] Creatinine 1.05(H) 0.56 - 0.96 mg/dL 05/19/2025 5:28 PM [facility] Sodium 132(L) 136 - 145 mmol/L 05/19/2025 5:28 PM [facility] Potassium 3.3(L) 3.5 - 4.5 mmol/L 05/19/2025 5:28 PM [facility] Chloride 91(L) 98 - 107 mmol/L 05/19/2025 5:28 PM [facility] CO2 30(H) 22 - 29 mmol/L 05/19/2025 5:28 PM [facility] Glucose 204(H) 70 - 99 mg/dL 05/19/2025 5:28 PM [facility] Albumin 2.3(L) 3.4 - 5.0 g/dL 05/19/2025 5:28 PM [facility] Calcium 8.1(L) 8.4 - 10.2 mg/dL 05/19/2025 5:28 PM [facility] Phosphorus 2.7(L) 2.9 - 5.1 mg/dL 05/19/2025 5:28 PM [facility] Anion Gap 11 6 - 16 05/19/2025 5:28 PM [facility] BUN/Creatinine Ratio 18 7 - 23 05/19/2025 5:28 PM [facility] Osmolality Calculated 282 275 - 295 mOsm/kg 05/19/2025 5:28 PM CDT [facility] eGFR by CKD-EPI 60(L) >=90 mL/min/1.7 3 m2 05/19/2025 5:28 PM CDT [facility] Comment:Estimated Glomerular Filtration Rate (eGFR) calculated using the CKD-EPI Creatinine Equation (2020), per the [employer] and [place] [employer] recommendations. Blood BLOOD SPECIMEN / Unknown Venipuncture / Unknown 05/19/2025 4:55 PM CDT 05/19/2025 5:00 PM CDT Linda Lezama MD LAB - CHEMISTRY ORDERABLES F inal Result [address] [address], [facility] [phone] * MAGNESIUM BLOOD (05/19/2025 4:55 PM CDT) Magnesium 1.7 1.6 - 2.6 mg/dL 05/19/2025 5:28 PM CDT [facility] Blood BLOOD SPECIMEN / Unknown Venipuncture / Unknown 05/19/2025 4:55 PM CDT 05/19/2025 5:00 PM CDT Adryan Shabazz MD LAB - CHEMISTRY ORDERABLES Final Result [address] [address], [facility] [phone] * CULTURE SPUTUM+GRAM STAIN (05/19/2025 4:20 PM CDT) Culture Light normal oropharyngeal alisa DEZ 05/21/2025 8:08 AM CDT [facility] Gram Stain Moderate Gram-negative bacilli 05/21/2025 8:08 AM CDT [facility] Gram Stain Moderate Gram-positive cocci 05/21/2025 8:08 AM CDT [facility] Gram Stain Light Yeast 05/21/2025 8:08 AM CDT [facility] Gram Stain >= 25 per low power field Polymorphonuclear cells 05/21/2025 8:08 AM CDT [facility] Gram Stain <10 per low power field Squamous epithelial cells 05/21/2025 8:08 AM CDT [facility] Microbiology SPUTUM / Unknown Collection / Unknown 05/19/2025 4:20 PM CDT 05/19/2025 4:26 PM CDT us Ha Hernandez MD LAB - MICROBIOLOGY ORDERABLES Fi nal Result [facility] [address] [place] [address], [facility] [phone] * (ABNORMAL) BLOOD GASES ART + COOX PANEL (05/19/2025 12:41 PM CDT) pH Arterial 7.48(H) 7.35 - 7.45 pH 05/19/2025 12:48 PM [facility] pO2 Arterial 75(L) 80 - 100 mmHg 05/19/2025 12:48 PM [facility] pCO2 Arterial 46(H) 35 - 45 mmHg 12:48 PM [facility] HCO3 Arterial 34.3(H) 20.0 - 30.0 mmol/L 05/19/2025 12:48 PM [facility] BE Arterial 9.4(H) -2.0 - 2.0 mmol/L 05/19/2025 12:48 PM [facility] Oxyhemoglobin Arterial 94.0 % 05/19/2025 12:48 PM [facility] Dexoyhemoglobin (HHB) % 2.6 % 05/19/2025 12:48 PM [facility] Methemoglobin <0.8 0.0 - 2.0 % 05/19/2025 12:48 PM [facility] Carboxyhemoglobin 3.1(H) 0.0 - 2.0 % 2024 12:48 PM [facility] O2 Content Arterial 19.6 Interpret within clinical context ml/dL 05/19/2025 12:48 PM [facility] Hemoglobin by COOX 14.8 12.0 - 15.6 g/dL 05/19/2025 12:48 PM CDT [facility] O2 Saturation Arterial 97 90 - 100 % 05/19/2025 12:48 PM CDT [facility] FI O2 Arterial 30.0 % 05/19/2025 12:48 PM CDT [facility] Blood, arterial ARTERIAL BLOOD SPECIMEN / Unknown Arterial Puncture / Unknown 05/19/2025 12:41 PM CDT 05/19/2025 12:46 PM CDT Narrative [facility] - 05/19/2025 12:48 PM CDT Carboxyhemoglobin Normal Concentration: Non-smokers: 0-2%; Smokers: 0-9%; Toxic: >20% Linda Lezama MD LAB - BLOOD GASES ORDERABLES Final Result [address] [address], [place] [phone] * LACTIC ACID BLOOD (05/19/2025 12:41 PM CDT) Lactic Acid-Stat 1.5 <=2.0 mmol/L 05/19/2025 1:30 PM CDT [facility] Blood BLOOD SPECIMEN / Unknown Venipuncture / Unknown 05/19/2025 12:41 PM CDT 05/19/2025 12:49 PM CDT Linda Lezama MD LAB - CHEMISTRY ORDERABLES F inal Result [address] [address], [place] [phone] * (ABNORMAL) GLUCOSE - POINT OF CARE (05/19/2025 12:38 PM CDT) Glucose WB/POC 199(H) 70 - 99 mg/dL 05/19/2025 12:43 PM CDT [facility] Specimen Type Arterial/C apillary 05/19/2025 12:43 PM CDT [facility] Blood BLOOD SPECIMEN / Unknown 05/19/2025 12:38 PM CDT 05/19/2025 12:43 PM CDT us Linda Lezama MD LAB - POINT OF CARE ORDERABL ES Final Result [facility] [address] [place] [address], [place] [phone] * (ABNORMAL) RENAL FUNCTION PANEL (05/19/2025 10:21 AM CDT) BUN 17 7 - 26 mg/dL 05/19/2025 10:59 AM [facility] Creatinine 1.08(H) 0.56 - 0.96 mg/dL 05/19/2025 10:59 AM [facility] Sodium 132(L) 136 - 145 mmol/L 05/19/2025 10:59 AM [facility] Potassium 3.5 3.5 - 4.5 mmol/L 05/19/2025 10:59 AM [facility] Chloride 92(L) 98 - 107 mmol/L 05/19/2025 10:59 AM [facility] CO2 31(H) 22 - 29 mmol/L 05/19/2025 10:59 AM [facility] Glucose 182(H) 70 - 99 mg/dL 05/19/2025 10:59 AM [facility] Albumin 2.4(L) 3.4 - 5.0 g/dL 05/19/2025 10:59 AM [facility] Calcium 8.2(L) 8.4 - 10.2 mg/dL 05/19/2025 10:59 AM [facility] Phosphorus 3.2 2.9 - 5.1 mg/dL 05/19/2025 10:59 AM [facility] Anion Gap 9 6 - 16 05/19/2025 10:59 AM [facility] BUN/Creatinine Ratio 16 7 - 23 05/19/2025 10:59 AM [facility] Osmolality Calculated 280 275 - 295 mOsm/kg 05/19/2025 10:59 AM [facility] eGFR by CKD-EPI 58(L) >=90 mL/min/1.7 3 m2 05/19/2025 10:59 AM CDT [facility] Comment:Estimated Glomerular Filtration Rate (eGFR) calculated using the CKD-EPI Creatinine Equation (2020), per the [employer] and [place] [employer] recommendations. Blood BLOOD SPECIMEN / Unknown Venipuncture / Unknown 05/19/2025 10:21 AM CDT 05/19/2025 10:26 AM CDT Linda Lezama MD LAB - CHEMISTRY ORDERABLES F inal Result Performing Organization Address City/[facility]/ZIP Co de Phone Number [address] [address], [facility] [phone] * MAGNESIUM BLOOD (05/19/2025 10:21 AM CDT) Magnesium 1.8 1.6 - 2.6 mg/dL 05/19/2025 10:59 AM CDT [facility] Blood BLOOD SPECIMEN / Unknown Venipuncture / Unknown 05/19/2025 10:21 AM CDT 05/19/2025 10:26 AM CDT Adryan Shabazz MD LAB - CHEMISTRY ORDERABLES Final Result Performing Organization Address [facility]/ZIP Co de Phone Number [address] [address], [facility] [phone] * DIGOXIN LEVEL (05/19/2025 10:21 AM CDT) Digoxin 0.8 0.5 - 1.2 ng/mL 05/19/2025 2:57 PM CDT [facility] Blood BLOOD SPECIMEN / Unknown Venipuncture / Unknown 05/19/2025 10:21 AM CDT 05/19/2025 10:25 AM CDT Narrative [facility] - 05/19/2025 2:57 PM CDT Therapeutic reference range for heart failure is 0.5-0.9 ng/mL. For atrial fibrillation, it is 0.8-1.2 ng/mL. The sales expert home [employer] of [employer] has stated that no immunoassay technique is suitable for quantitating digoxin in plasma/serum from patients on antibody fragment therapy. us Linda Lezama MD LAB - CHEMISTRY ORDERABLES F inal Result [facility] [address] [place] [address], [facility] [phone] * (ABNORMAL) BLOOD GASES ART + COOX PANEL (05/19/2025 9:00 AM [facility]) pH Arterial 7.50(H) 7.35 - 7.45 pH 05/19/2025 9:13 AM [facility] pO2 Arterial 78(L) 80 - 100 mmHg 05/19/2025 9:13 AM [facility] pCO2 Arterial 45 35 - 45 mmHg 9:13 AM [facility] HCO3 Arterial 35.1(H) 20.0 - 30.0 mmol/L 05/19/2025 9:13 AM [facility] BE Arterial 10.5(H) -2.0 - 2.0 mmol/L 05/19/2025 9:13 AM [facility] Oxyhemoglobin Arterial 94.1 % 05/19/2025 9:13 AM [facility] Dexoyhemoglobin (HHB) % 2.5 % 05/19/2025 9:13 AM [facility] Methemoglobin <0.8 0.0 - 2.0 % 05/19/2025 9:13 AM [facility] Carboxyhemoglobin 2.8(H) 0.0 - 2.0 % 2024 9:13 AM [facility] O2 Content Arterial 19.6 Interpret within clinical context ml/dL 05/19/2025 9:13 AM [facility] Hemoglobin by COOX 14.8 12.0 - 15.6 g/dL 05/19/2025 9:13 AM [facility] O2 Saturation Arterial 97 90 - 100 % 05/19/2025 9:13 AM [facility] FI O2 Arterial 30.0 % 05/19/2025 9:13 AM [facility] Blood, arterial ARTERIAL BLOOD SPECIMEN / Unknown Arterial Puncture / Unknown 05/19/2025 9:00 AM CDT 05/19/2025 9:05 AM CDT Narrative [facility] - 05/19/2025 9:13 AM CDT Carboxyhemoglobin Normal Concentration: Non-smokers: 0-2%; Smokers: 0-9%; Toxic: >20% Linda Lezama MD LAB - BLOOD GASES ORDERABLES Final Result Performing Organization Address [facility] Co de Phone Number [address] [address], [place] [phone] * LACTIC ACID BLOOD (05/19/2025 9:00 AM CDT) Pathologist [facility] [place] Lactic Acid-Stat 1.5 <=2.0 mmol/L 05/19/2025 9:42 AM CDT [facility] Blood BLOOD SPECIMEN / Unknown Venipuncture / Unknown 05/19/2025 9:00 AM CDT 05/19/2025 9:07 AM CDT iLnda Lezama MD LAB - CHEMISTRY ORDERABLES F inal Result Performing Organization Address [facility] Co de Phone Number [address] [address], [place] [phone] * (ABNORMAL) GLUCOSE - POINT OF CARE (05/19/2025 8:59 AM CDT) Pathologist [facility] [place] Glucose WB/POC 161(H) 70 - 99 mg/dL 05/19/2025 9:04 AM CDT [facility] Specimen Type Arterial/C apillary 05/19/2025 9:04 AM CDT [facility] Blood BLOOD SPECIMEN / Unknown 05/19/2025 8:59 AM CDT 05/19/2025 9:04 AM CDT Linda Lezama MD LAB - POINT OF CARE ORDERABL ES Final Result Performing Organization Address [facility] Co de Phone Number [place] [address] [place] [address], [facility] [phone] * XR Chest 1Vw Portable (05/19/2025 6:11 AM CDT) Anatomical Region Laterality Modality Chest Digital Radiogra phy 05/19/2025 2:07 PM CDT Narrative 05/19/2025 2:08 PM CDT PROCEDURE: XR CHEST 1VW PORTABLE DATE/TIME OF EXAM: 05/19/2025 6:32 AM CLINICAL INFORMATION: None relevant/not provided if blank. Indication: R06.02: Shortness of breath I50.9: Acute on chronic congestive heart failure, unspecified heart failure type (HCC) Additional History: COMPARISON: 05/18/2025. FINDINGS: Tubes and lines: Lines and tubes are reidentified without significant interval change in position. Left lung is poorly expanded. Persistent left lower lobe and lingular segment of upper lobe atelectasis, there is associated leftward shift of the cardiac shadow. These findings show no significant interval change. Small left-sided pleural effusion is not excluded. Right lung is unremarkable. No right pleural effusion seen. No pneumothorax No other newly developed findings in the chest. > Interpreting Provider: Orin Oropeza MD on 05/19/2025 2:08 PM Procedure Note Orin Oropeza MD - 05/19/2025 PROCEDURE: XR CHEST 1VW PORTABLE DATE/TIME OF EXAM: 05/19/2025 6:32 AM CLINICAL INFORMATION: None relevant/not provided if blank. Indication: R06.02: Shortness of breath I50.9: Acute on chronic congestive heart failure, unspecified heartfailure type (HCC) Additional History: COMPARISON: 05/18/2025. FINDINGS: Tubes and lines: Lines and tubes are reidentified without significant interval change in position. Left lung is poorly expanded. Persistent left lower lobe and lingular segment of upper lobeatelectasis, there is associated leftward shift of the cardiac shadow. These findings show no significant interval change. Small left-sided pleural effusionis not excluded. Right lung is unremarkable. No right pleural effusion seen. Nopneumothorax No other newly developed findings in the chest. > Interpreting Provider: Orin Oropeza MD on 52:08 PM Liz Danielson PERFUSIONIST-ORNAMENTAL MACHINE OPERATOR DIAGNOSTIC IMAGING OR DERABLES Final Result * LACTIC ACID BLOOD (05/19/2025 4:00 AM CDT) Pathologist [facility] [place] Lactic Acid-Stat 1.7 <=2.0 mmol/L 05/19/2025 4:40 AM CDT [facility] Blood BLOOD SPECIMEN / Unknown Venipuncture / Unknown 05/19/2025 4:00 AM CDT 05/19/2025 4:08 AM CDT Linda Lezama MD LAB - CHEMISTRY ORDERABLES F inal Result [address] [address], [facility] [phone] * (ABNORMAL) BLOOD GASES GATO + COOX PANEL (05/19/2025 4:00 AM CDT) pH Venous 7.48(H) 7.32 - 7.42 pH 05/19/2025 4:17 AM [facility] pO2 Venous 52(H) 35 - 40 mmHg 05/19/2025 4:17 AM [facility] pCO2 Venous 46 40 - 50 mmHg 05/19/2025 4:17 AM [facility] HCO3 Venous 34.3(H) 20 - 30 mmol/L 05/19/2025 4:17 AM [facility] Base Excess Venous 9.3(H) -2.0 - 2.0 mmol/L 05/19/2025 4:17 AM [facility] Oxyhemoglobin Venous 83.7 % 05/10 4:17 AM [facility] Deoxyhemoglobin (HHB) Venous % 13.5 % 05/19/2025 4:17 AM [facility] Methemoglobin <0.8 0.0 - 2.0 % 05/19/2025 4:17 AM [facility] Carboxyhemoglobin 2.5(H) 0.0 - 2.0 % 2024 4:17 AM [facility] O2 Content Venous 18.0 Interpret within clinical context ml/dL 05/19/2025 4:17 AM [facility] Hemoglobin by COOX 15.3 12.0 - 15.6 g/dL 05/19/2025 4:17 AM [facility] O2 Saturation Venous 86 >=70 % 05/10 4:17 AM [facility] FI O2 Mixed Venous 30.0 % 2024 4:17 AM [facility] Blood BLOOD SPECIMEN / Unknown Venipuncture / Unknown 05/19/2025 4:00 AM T 05/19/2025 4:[address] [facility] - 05/19/2025 4:17 AM [facility] Carboxyhemoglobin Normal Concentration: Non-smokers: 0-2%; Smokers: 0-9%; Toxic: >20% us Linda Lezama MD LAB - BLOOD GASES ORDERABLES Final Result [facility] [address] [place] [address], [facility] [phone] * (ABNORMAL) BLOOD GASES ART + COOX PANEL (05/19/2025 4:00 AM [facility]) pH Arterial 7.49(H) 7.35 - 7.45 pH 05/19/2025 4:21 AM [facility] pO2 Arterial 87 80 - 100 mmHg 05/19/2025 4:21 AM [facility] pCO2 Arterial 45 35 - 45 mmHg 4:21 AM [facility] HCO3 Arterial 34.3(H) 20.0 - 30.0 mmol/L 05/19/2025 4:21 AM [facility] BE Arterial 9.5(H) -2.0 - 2.0 mmol/L 05/19/2025 4:21 AM [facility] Oxyhemoglobin Arterial 95.3 % 05/19/2025 4:21 AM [facility] Dexoyhemoglobin (HHB) % 1.5 % 05/19/2025 4:21 AM [facility] Methemoglobin <0.8 0.0 - 2.0 % 05/19/2025 4:21 AM [facility] Carboxyhemoglobin 2.8(H) 0.0 - 2.0 % 2024 4:21 AM [facility] O2 Content Arterial 20.8 Interpret within clinical context ml/dL 05/19/2025 4:21 AM [facility] Hemoglobin by COOX 15.5 12.0 - 15.6 g/dL 05/19/2025 4:21 AM [facility] O2 Saturation Arterial 99 90 - 100 % 05/19/2025 4:21 AM [facility] FI O2 Arterial 30.0 % 05/19/2025 4:21 AM [facility] Blood, arterial ARTERIAL BLOOD SPECIMEN / Unknown Arterial Puncture / Unknown 05/19/2025 4:00 AM [facility] 05/19/2025 4:[address] [facility] - 05/19/2025 4:21 AM [facility] Carboxyhemoglobin Normal Concentration: Non-smokers: 0-2%; Smokers: 0-9%; Toxic: >20% us Linda Lezama MD LAB - BLOOD GASES ORDERABLES Final Result [facility] [address] [place] [address], [facility] [phone] * (ABNORMAL) RENAL FUNCTION PANEL (05/19/2025 4:00 AM [facility]) BUN 17 7 - 26 mg/dL 05/19/2025 4:35 AM [facility] Creatinine 1.08(H) 0.56 - 0.96 mg/dL 05/19/2025 4:35 AM [facility] Sodium 132(L) 136 - 145 mmol/L 05/19/2025 4:35 AM [facility] Potassium 3.8 3.5 - 4.5 mmol/L 05/19/2025 4:35 AM [facility] Chloride 89(L) 98 - 107 mmol/L 05/19/2025 4:35 AM [facility] CO2 30(H) 22 - 29 mmol/L 05/19/2025 4:35 AM [facility] Glucose 133(H) 70 - 99 mg/dL 05/19/2025 4:35 AM [facility] Albumin 2.7(L) 3.4 - 5.0 g/dL 05/19/2025 4:35 AM [facility] Calcium 8.4 8.4 - 10.2 mg/dL 05/19/2025 4:35 AM [facility] Phosphorus 3.2 2.9 - 5.1 mg/dL 05/19/2025 4:35 AM [facility] Anion Gap 13 6 - 16 05/19/2025 4:35 AM [facility] BUN/Creatinine Ratio 16 7 - 23 05/19/2025 4:35 AM [facility] Osmolality Calculated 277 275 - 295 mOsm/kg 05/19/2025 4:35 AM [facility] eGFR by CKD-EPI 58(L) >=90 mL/min/1.7 3 m2 05/19/2025 4:35 AM [facility] Comment:Estimated Glomerular Filtration Rate (eGFR) calculated using the CKD-EPI Creatinine Equation (2020), per the [employer] Kid[employer] and [place] [employer] recommendations. Blood BLOOD SPECIMEN / Unknown Venipuncture / Unknown 05/19/2025 4:00 AM CDT 05/19/2025 4:07 AM T us Linda Lezama MD LAB - CHEMISTRY ORDERABLES F inal Result [address] [address], [facility] [phone] * OSMOLALITY BLOOD (05/19/2025 4:00 AM CDT) Osmolality 283 275 - 295 mOsm/kg 05/19/2025 5:31 AM [facility] Blood BLOOD SPECIMEN / Unknown Venipuncture / Unknown 05/19/2025 4:00 AM CDT 05/19/2025 4:07 AM CDT Linda Lezama MD LAB - CHEMISTRY ORDERABLES F inal Result Performing Organization Address [facility]/ZIP Co de Phone Number [address] [address], [facility] [phone] * MAGNESIUM BLOOD (05/19/2025 4:00 AM CDT) Magnesium 1.9 1.6 - 2.6 mg/dL 05/19/2025 4:35 AM [facility] Blood BLOOD SPECIMEN / Unknown Venipuncture / Unknown 05/19/2025 4:00 AM CDT 05/19/2025 4:07 AM CDT Adryan Shabazz MD LAB - CHEMISTRY ORDERABLES Final Result Performing Organization Address [facility]/ZIP Co de Phone Number [address] [address], [facility] [phone] * (ABNORMAL) CBC W AUTO DIFFERENTIAL (05/19/2025 4:00 AM CDT) WBC 5.2 4.0 - 10.7 x10E9/L 05/19/2025 4:21 AM [facility] RBC Count 4.40 3.90 - 5.20 x10E12/L 05/19/2025 4:21 AM [facility] Hemoglobin 15.0 11.9 - 15.8 g/dL 05/19/2025 4:21 AM [facility] Hematocrit 41.4 34.8 - 46.1 % 05/19/2025 4:21 AM [facility] MCV 94.1 80.0 - 98.0 fL 05/19/2025 4:21 AM [facility] MCH 34.1(H) 26.7 - 33.6 pg 05/19/2025 4:21 AM [facility] MCHC 36.2 31.7 - 36.3 g/dL 05/19/2025 4:21 AM [facility] RDW-CV 18.1(H) 11.3 - 14.8 % 05/19/2025 4:21 AM [facility] Platelet Count 159 150 - 420 x10E9/L 05/19/2025 4:21 AM [facility] MPV 9.3 7.8 - 11.4 fL 05/19/2025 4:21 AM [facility] Neutrophil % 75.4(H) 41.0 - 74.0 % 05/19/2025 4:21 AM [facility] Lymphocyte % 8.1(L) 17.0 - 47.0 % 05/19/2025 4:21 AM [facility] Monocyte % 13.1(H) 3.0 - 11.0 % 05/19/2025 4:21 AM [facility] Eosinophil % 1.7 0.0 - 7.0 % 05/19/2025 4:21 AM [facility] Basophil % 1.3 0.0 - 1.6 % 05/19/2025 4:21 AM [facility] Immature Granulocytes % 0.4 0.0 - 1.0 % 05/19/2025 4:21 AM [facility] Neutrophil Absolute 3.93 1.60 - 7.50 x10E9/L 05/19/2025 4:21 AM [facility] Lymphocyte Absolute 0.42(L) 1.00 - 4.40 x10E9/L 05/19/2025 4:21 AM [facility] Monocyte Absolute 0.68 0.15 - 1.00 x10E9/L 05/19/2025 4:21 AM [facility] Eosinophil Absolute 0.09 0.00 - 0.60 x10E9/L 05/19/2025 4:21 AM [facility] Basophil Absolute 0.07 0.00 - 0.13 x10E9/L 05/19/2025 4:21 AM [facility] Blood BLOOD SPECIMEN / Unknown Venipuncture / Unknown 05/19/2025 4:00 AM CDT 05/19/2025 4:08 AM CDT Carline Darby DO LAB - HEMATOLOGY ORDERABLES Ayanna vazquez Result [address] [address], [place] [phone] * TRIGLYCERIDES BLOOD (05/19/2025 4:00 AM CDT) [facility] Triglycerides 131 <150 mg/dL 05/19/2025 4:35 AM CDT [facility] Comment: ATP III Classification of Triglycerides: <150 mg/dL: Normal 150 - 199 mg/dL: Borderline High 200 - 400 mg/dL: High >500 mg/dL: Very High Blood BLOOD SPECIMEN / Unknown Venipuncture / Unknown 05/19/2025 4:00 AM CDT 05/19/2025 4:07 AM CDT Linda Lezama MD LAB - CHEMISTRY ORDERABLES F inal Result Performing Organization Address City/[facility] Co de Phone Number [address] [address], [place] [phone] * LACTIC ACID BLOOD (05/18/2025 10:51 PM CDT) [facility] Lactic Acid-Stat 1.6 <=2.0 mmol/L 05/18/2025 11:28 PM CDT [facility] Blood BLOOD SPECIMEN / Unknown Venipuncture / Unknown 05/18/2025 10:51 PM CDT 05/18/2025 11:01 PM CDT Linda Lezama MD LAB - CHEMISTRY ORDERABLES F inal Result [address] [address], [place] [phone] * (ABNORMAL) BLOOD GASES GATO + COOX PANEL (05/18/2025 10:51 PM CDT) pH Venous 7.48(H) 7.32 - 7.42 pH 05/18/2025 11:04 PM [facility] pO2 Venous 47(H) 35 - 40 mmHg 05/18/2025 11:04 PM [facility] pCO2 Venous 46 40 - 50 mmHg 05/18/2025 11:04 PM [facility] HCO3 Venous 34.3(H) 20 - 30 mmol/L 05/18/2025 11:04 PM [facility] Base Excess Venous 9.4(H) -2.0 - 2.0 mmol/L 05/18/2025 11:04 PM [facility] Oxyhemoglobin Venous 79.2 % 06/2025 11:04 PM [facility] Deoxyhemoglobin (HHB) Venous % 18.0 % 05/18/2025 11:04 PM [facility] Methemoglobin <0.8 0.0 - 2.0 % 05/18/2025 11:04 PM [facility] Carboxyhemoglobin 2.6(H) 0.0 - 2.0 % 2024 11:04 PM [facility] O2 Content Venous 16.3 Interpret within clinical context ml/dL 05/18/2025 11:04 PM [facility] Hemoglobin by COOX 14.7 12.0 - 15.6 g/dL 05/18/2025 11:04 PM [facility] O2 Saturation Venous 82 >=70 % 06/2025 11:04 PM [facility] FI O2 Mixed Venous 30.0 % 2024 11:04 PM [facility] Blood BLOOD SPECIMEN / Unknown Venipuncture / Unknown 05/18/2025 10:51 PM T 05/18/2025 10:[address] [facility] - 05/18/2025 11:04 PM [facility] Carboxyhemoglobin Normal Concentration: Non-smokers: 0-2%; Smokers: 0-9%; Toxic: >20% us Linda Lezama MD LAB - BLOOD GASES ORDERABLES Final Result [facility] [address] [place] [address], [facility] [phone] * (ABNORMAL) BLOOD GASES ART + COOX PANEL (05/18/2025 10:51 PM [facility]) pH Arterial 7.50(H) 7.35 - 7.45 pH 05/18/2025 11:05 PM [facility] pO2 Arterial 88 80 - 100 mmHg 05/18/2025 11:05 PM [facility] pCO2 Arterial 45 35 - 45 mmHg 11:05 PM [facility] HCO3 Arterial 35.1(H) 20.0 - 30.0 mmol/L 05/18/2025 11:05 PM [facility] BE Arterial 10.5(H) -2.0 - 2.0 mmol/L 05/18/2025 11:05 PM [facility] Oxyhemoglobin Arterial 96.2 % 05/18/2025 11:05 PM [facility] Dexoyhemoglobin (HHB) % <1.0 % 05/18/2025 11:05 PM [facility] Methemoglobin <0.8 0.0 - 2.0 % 05/18/2025 11:05 PM [facility] Carboxyhemoglobin 3.0(H) 0.0 - 2.0 % 2024 11:05 PM [facility] O2 Content Arterial 19.7 Interpret within clinical context ml/dL 05/18/2025 11:05 PM [facility] Hemoglobin by COOX 14.5 12.0 - 15.6 g/dL 05/18/2025 11:05 PM [facility] O2 Saturation Arterial 99 90 - 100 % 05/18/2025 11:05 PM [facility] FI O2 Arterial 30.0 % 05/18/2025 11:05 PM [facility] Blood, arterial ARTERIAL BLOOD SPECIMEN / Unknown Arterial Puncture / Unknown 05/18/2025 10:51 PM CDT 05/18/2025 10:[address] [facility] - 05/18/2025 11:05 PM [facility] Carboxyhemoglobin Normal Concentration: Non-smokers: 0-2%; Smokers: 0-9%; Toxic: >20% Linda Lezama MD LAB - BLOOD GASES ORDERABLES Final Result [facility] [address] [place] [address], [facility] [phone] * (ABNORMAL) RENAL FUNCTION PANEL (05/18/2025 10:51 PM T) BUN 16 7 - 26 mg/dL 05/18/2025 11:27 PM [facility] Creatinine 1.08(H) 0.56 - 0.96 mg/dL 05/18/2025 11:27 PM [facility] Sodium 130(L) 136 - 145 mmol/L 05/18/2025 11:27 PM [facility] Potassium 3.9 3.5 - 4.5 mmol/L 05/18/2025 11:27 PM [facility] Chloride 91(L) 98 - 107 mmol/L 05/18/2025 11:27 PM [facility] CO2 29 22 - 29 mmol/L 05/18/2025 11:27 PM [facility] Glucose 121(H) 70 - 99 mg/dL 05/18/2025 11:27 PM [facility] Albumin 2.6(L) 3.4 - 5.0 g/dL 05/18/2025 11:27 PM [facility] Calcium 8.1(L) 8.4 - 10.2 mg/dL 05/18/2025 11:27 PM [facility] Phosphorus 3.6 2.9 - 5.1 mg/dL 05/18/2025 11:27 PM [facility] Anion Gap 10 6 - 16 05/18/2025 11:27 PM [facility] BUN/Creatinine Ratio 15 7 - 23 05/18/2025 11:27 PM [facility] Osmolality Calculated 272(L) 275 - 295 mOsm/kg 05/18/2025 11:27 PM CDT [facility] eGFR by CKD-EPI 58(L) >=90 mL/min/1.7 3 m2 05/18/2025 11:27 PM CDT [facility] Comment:Estimated Glomerular Filtration Rate (eGFR) calculated using the CKD-EPI Creatinine Equation (2020), per the National Kidney Foundation and [place] [employer] recommendations. Blood BLOOD SPECIMEN / Unknown Venipuncture / Unknown 05/18/2025 10:51 PM CDT 05/18/2025 11:01 PM CDT Linda Lezama MD LAB - CHEMISTRY ORDERABLES F inal Result [address] [address], [facility] [phone] * MAGNESIUM BLOOD (05/18/2025 10:51 PM CDT) Magnesium 2.0 1.6 - 2.6 mg/dL 05/18/2025 11:27 PM CDT [facility] Blood BLOOD SPECIMEN / Unknown Venipuncture / Unknown 05/18/2025 10:51 PM CDT 05/18/2025 11:01 PM CDT Adryan Shabazz MD LAB - CHEMISTRY ORDERABLES Final Result Performing Organization Address City/[facility]/ZIP Co de Phone Number [address] [address], [place] [phone] * (ABNORMAL) GLUCOSE - POINT OF CARE (05/18/2025 6:26 PM CDT) Glucose WB/POC 115(H) 70 - 99 mg/dL 05/18/2025 6:27 PM CDT [facility] Specimen Type Arterial/C apillary 05/18/2025 6:27 PM CDT [facility] Blood BLOOD SPECIMEN / Unknown 05/18/2025 6:26 PM CDT 05/18/2025 6:27 PM CDT Linda Lezama MD LAB - POINT OF CARE ORDERABL ES Final Result Performing Organization Address City/[facility]/ZIP Co de Phone Number [address] [address], [facility] [phone] * LACTIC ACID BLOOD (05/18/2025 4:37 PM CDT) Lactic Acid-Stat 1.6 <=2.0 mmol/L 05/18/2025 5:16 PM CDT [facility] Blood BLOOD SPECIMEN / Unknown Venipuncture / Unknown 05/18/2025 4:37 PM CDT 05/18/2025 4:49 PM CDT us Linda Lezama MD LAB - CHEMISTRY ORDERABLES F inal Result Performing Organization Address [facility] Co de Phone Number [address] [address], [facility] [phone] * (ABNORMAL) BLOOD GASES GATO + COOX PANEL (05/18/2025 3:48 PM CDT) pH Venous 7.40 7.32 - 7.42 pH 05/18/2025 3:56 PM CDT [facility] pO2 Venous 51(H) 35 - 40 mmHg 05/18/2025 3:56 PM T [facility] pCO2 Venous 46 40 - 50 mmHg 05/18/2025 3:56 PM T [facility] HCO3 Venous 28.5 20 - 30 mmol/L 05/18/2025 3:56 PM T [facility] Base Excess Venous 3.0(H) -2.0 - 2.0 mmol/L 05/18/2025 3:56 PM T [facility] Oxyhemoglobin Venous 80.3 % 06/2025 3:56 PM CDT [facility] Deoxyhemoglobin (HHB) Venous % 16.8 % 05/18/2025 3:56 PM T [facility] Methemoglobin <0.8 0.0 - 2.0 % 05/18/2025 3:56 PM T [facility] Carboxyhemoglobin 2.3(H) 0.0 - 2.0 % 2024 3:56 PM [facility] O2 Content Venous 15.2 Interpret within clinical context ml/dL 05/18/2025 3:56 PM [facility] Hemoglobin by COOX 13.5 12.0 - 15.6 g/dL 05/18/2025 3:56 PM [facility] O2 Saturation Venous 83 >=70 % 06/2025 3:56 PM [facility] FI O2 Mixed Venous 30.0 % 2024 3:56 PM [facility] Blood BLOOD SPECIMEN / Unknown Venipuncture / Unknown 05/18/2025 3:48 PM CDT 05/18/2025 3:51 PM CDT [facility] - 05/18/2025 3:56 PM CDT Carboxyhemoglobin Normal Concentration: Non-smokers: 0-2%; Smokers: 0-9%; Toxic: >20% Linda Lezama MD LAB - BLOOD GASES ORDERABLES Final Result [facility] [address] [place] [address], [facility] [phone] * (ABNORMAL) BLOOD GASES ART + COOX PANEL (05/18/2025 2:50 PM CDT) pH Arterial 7.44 7.35 - 7.45 pH 05/18/2025 3:12 PM [facility] pO2 Arterial 82 80 - 100 mmHg 05/18/2025 3:12 PM [facility] pCO2 Arterial 47(H) 35 - 45 mmHg 3:12 PM [facility] HCO3 Arterial 31.9(H) 20.0 - 30.0 mmol/L 05/18/2025 3:12 PM [facility] BE Arterial 6.6(H) -2.0 - 2.0 mmol/L 05/18/2025 3:12 PM [facility] Oxyhemoglobin Arterial 95.3 % 05/18/2025 3:12 PM [facility] Dexoyhemoglobin (HHB) % 2.5 % 05/18/2025 3:12 PM [facility] Methemoglobin <0.8 0.0 - 2.0 % 05/18/2025 3:12 PM [facility] Carboxyhemoglobin 1.9 0.0 - 2.0 % 2024 3:12 PM [facility] O2 Content Arterial 19.2 Interpret within clinical context ml/dL 05/18/2025 3:12 PM [facility] Hemoglobin by COOX 14.3 12.0 - 15.6 g/dL 05/18/2025 3:12 PM [facility] O2 Saturation Arterial 97 90 - 100 % 05/18/2025 3:12 PM [facility] FI O2 Arterial 30.0 % 05/18/2025 3:12 PM [facility] Blood, arterial ARTERIAL BLOOD SPECIMEN / Unknown Arterial Puncture / Unknown 05/18/2025 2:50 PM CDT 05/18/2025 2:53 PM CDT [facility] - 05/18/2025 3:12 PM [facility] Carboxyhemoglobin Normal Concentration: Non-smokers: 0-2%; Smokers: 0-9%; Toxic: >20% us Linda Lezama MD LAB - BLOOD GASES ORDERABLES Final Result [facility] [address] [place] [address], [facility] [phone] * (ABNORMAL) RENAL FUNCTION PANEL (05/18/2025 2:50 PM CDT) BUN 16 7 - 26 mg/dL 05/18/2025 3:34 PM [facility] Creatinine 1.08(H) 0.56 - 0.96 mg/dL 05/18/2025 3:34 PM [facility] Sodium 129(L) 136 - 145 mmol/L 05/18/2025 3:34 PM [facility] Potassium 4.1 3.5 - 4.5 mmol/L 05/18/2025 3:34 PM [facility] Chloride 93(L) 98 - 107 mmol/L 05/18/2025 3:34 PM [facility] CO2 28 22 - 29 mmol/L 05/18/2025 3:34 PM [facility] Glucose 99 70 - 99 mg/dL 05/18/2025 3:34 PM [facility] Albumin 2.6(L) 3.4 - 5.0 g/dL 05/18/2025 3:34 PM [facility] Calcium 7.8(L) 8.4 - 10.2 mg/dL 05/18/2025 3:34 PM [facility] Phosphorus 3.6 2.9 - 5.1 mg/dL 05/18/2025 3:34 PM [facility] Anion Gap 8 6 - 16 05/18/2025 3:34 PM [facility] BUN/Creatinine Ratio 15 7 - 23 05/18/2025 3:34 PM [facility] Osmolality Calculated 269(L) 275 - 295 mOsm/kg 05/18/2025 3:34 PM [facility] eGFR by CKD-EPI 58(L) >=90 mL/min/1.7 3 m2 05/18/2025 3:34 PM [facility] Comment:Estimated Glomerular Filtration Rate (eGFR) calculated using the CKD-EPI Creatinine Equation (2020), per the [employer] and [place] [employer] recommendations. Blood BLOOD SPECIMEN / Unknown Venipuncture / Unknown 05/18/2025 2:50 PM CDT 05/18/2025 3:08 PM CDT us Linda Lezama MD LAB - CHEMISTRY ORDERABLES F inal Result [facility] [address] [place] [address], [facility] [phone] * MAGNESIUM BLOOD (05/18/2025 2:50 PM CDT) Magnesium 2.1 1.6 - 2.6 mg/dL 05/18/2025 3:34 PM T [facility] Blood BLOOD SPECIMEN / Unknown Venipuncture / Unknown 05/18/2025 2:50 PM CDT 05/18/2025 3:08 PM CDT Adryan Shabazz MD LAB - CHEMISTRY ORDERABLES Final Result Performing Organization Address [facility]/ZIP Co de Phone Number [address] [address], [place] [phone] * LACTIC ACID BLOOD (05/18/2025 2:50 PM CDT) [facility] Lactic Acid-Stat 1.7 <=2.0 mmol/L 05/18/2025 3:35 PM CDT [facility] Blood BLOOD SPECIMEN / Unknown Venipuncture / Unknown 05/18/2025 2:50 PM CDT 05/18/2025 3:08 PM CDT Linda Lezama MD LAB - CHEMISTRY ORDERABLES F inal Result Performing Organization Address [facility] Co de Phone Number [address] [address], [place] [phone] * (ABNORMAL) GLUCOSE - POINT OF CARE (05/18/2025 12:35 PM CDT) [facility] Glucose WB/POC 100(H) 70 - 99 mg/dL 05/18/2025 12:38 PM CDT [facility] Specimen Type Arterial/C apillary 05/18/2025 12:38 PM CDT [facility] Blood BLOOD SPECIMEN / Unknown 05/18/2025 12:35 PM CDT 05/18/2025 12:38 PM CDT Linda Lezama MD LAB - POINT OF CARE ORDERABL ES Final Result Performing Organization Address [facility]/ZIP Co de Phone Number [address] [address], [place] [phone] * (ABNORMAL) BLOOD GASES GATO + COOX PANEL (05/18/2025 9:33 AM CDT) [facility] pH Venous 7.44(H) 7.32 - 7.42 pH 05/18/2025 9:42 AM [facility] pO2 Venous 54(H) 35 - 40 mmHg 05/18/2025 9:42 AM [facility] pCO2 Venous 45 40 - 50 mmHg 05/18/2025 9:42 AM [facility] HCO3 Venous 30.6(H) 20 - 30 mmol/L 05/18/2025 9:42 AM [facility] Base Excess Venous 5.6(H) -2.0 - 2.0 mmol/L 05/18/2025 9:42 AM [facility] Oxyhemoglobin Venous 83.0 % 06/2025 9:42 AM [facility] Deoxyhemoglobin (HHB) Venous % 14.0 % 05/18/2025 9:42 AM [facility] Methemoglobin <0.8 0.0 - 2.0 % 05/18/2025 9:42 AM [facility] Carboxyhemoglobin 2.5(H) 0.0 - 2.0 % 2024 9:42 AM [facility] [facility] O2 Content Venous 16.3 Interpret within clinical context ml/dL 05/18/2025 9:42 AM [facility] Hemoglobin by COOX 14.0 12.0 - 15.6 g/dL 05/18/2025 9:42 AM [facility] O2 Saturation Venous 86 >=70 % 06/2025 9:42 AM [facility] FI O2 Mixed Venous 30.0 % 2024 9:42 AM [facility] Blood BLOOD SPECIMEN / Unknown Venipuncture / Unknown 05/18/2025 9:33 AM T 05/18/2025 9:[address] [facility] - 05/18/2025 9:42 AM [facility] Carboxyhemoglobin Normal Concentration: Non-smokers: 0-2%; Smokers: 0-9%; Toxic: >20% us Linda Lezama MD LAB - BLOOD GASES ORDERABLES Final Result [facility] [address] [place] [address], [facility] [phone] * (ABNORMAL) RENAL FUNCTION PANEL (05/18/2025 9:33 AM [facility]) BUN 16 7 - 26 mg/dL 05/18/2025 10:24 AM [facility] Creatinine 1.06(H) 0.56 - 0.96 mg/dL 05/18/2025 10:24 AM [facility] Sodium 127(L) 136 - 145 mmol/L 05/18/2025 10:24 AM [facility] Potassium 3.7 3.5 - 4.5 mmol/L 05/18/2025 10:24 AM [facility] Chloride 91(L) 98 - 107 mmol/L 05/18/2025 10:24 AM [facility] CO2 29 22 - 29 mmol/L 05/18/2025 10:24 AM [facility] Glucose 95 70 - 99 mg/dL 05/18/2025 10:24 AM [facility] Albumin 2.5(L) 3.4 - 5.0 g/dL 05/18/2025 10:24 AM [facility] Calcium 7.6(L) 8.4 - 10.2 mg/dL 05/18/2025 10:24 AM [facility] Phosphorus 3.3 2.9 - 5.1 mg/dL 05/18/2025 10:24 AM [facility] Anion Gap 7 6 - 16 05/18/2025 10:24 AM [facility] BUN/Creatinine Ratio 15 7 - 23 05/18/2025 10:24 AM [facility] Osmolality Calculated 265(L) 275 - 295 mOsm/kg 05/18/2025 10:24 AM [facility] eGFR by CKD-EPI 59(L) >=90 mL/min/1.7 3 m2 05/18/2025 10:24 AM [facility] Comment:Estimated Glomerular Filtration Rate (eGFR) calculated using the CKD-EPI Creatinine Equation (2020), per the National Kid[employer] and [place] [employer] recommendations. Blood BLOOD SPECIMEN / Unknown Venipuncture / Unknown 05/18/2025 9:33 AM CDT 05/18/2025 9:40 AM CDT Linda Lezama MD LAB - CHEMISTRY ORDERABLES F inal Result Performing Organization Address [facility]/ZIP Co de Phone Number [address] [address], [place] [phone] * MAGNESIUM BLOOD (05/18/2025 9:33 AM CDT) Magnesium 2.3 1.6 - 2.6 mg/dL 05/18/2025 10:24 AM CDT [facility] Blood BLOOD SPECIMEN / Unknown Venipuncture / Unknown 05/18/2025 9:33 AM CDT 05/18/2025 9:40 AM CDT Adryan Shabazz MD LAB - CHEMISTRY ORDERABLES Final Result Performing Organization Address [facility] Co de Phone Number [address] [address], [place] [phone] * LACTIC ACID BLOOD (05/18/2025 9:33 AM CDT) Pathologist [facility] [place] Lactic Acid-Stat 1.7 <=2.0 mmol/L 05/18/2025 10:24 AM CDT [facility] Blood BLOOD SPECIMEN / Unknown Venipuncture / Unknown 05/18/2025 9:33 AM CDT 05/18/2025 9:40 AM CDT Linda Lezama MD LAB - CHEMISTRY ORDERABLES F inal Result Performing Organization Address [facility]/ZIP Co de Phone Number [address] [address], [place] [phone] * (ABNORMAL) GLUCOSE - POINT OF CARE (05/18/2025 6:00 AM CDT) Glucose WB/POC 117(H) 70 - 99 mg/dL 05/18/2025 6:02 AM CDT [facility] Specimen Type Arterial/C apillary 05/18/2025 6:02 AM CDT [facility] Blood BLOOD SPECIMEN / Unknown 05/18/2025 6:00 AM CDT 05/18/2025 6:02 AM CDT Linda Lezama MD LAB - POINT OF CARE ORDERABL ES Final Result [facility] [address] [place] [address], [facility] [phone] * XR Chest 1Vw Portable (05/18/2025 5:15 AM CDT) Anatomical Region Laterality Modality Chest Digital Radiogra phy 05/18/2025 8:31 AM CDT Narrative 05/18/2025 8:32 AM CDT PROCEDURE: XR CHEST 1VW PORTABLE DATE/TIME OF EXAM: 05/18/2025 5:31 AM CLINICAL INFORMATION: None relevant/not provided if blank. Indication: R06.02: Shortness of breath E87.1: Hyponatremia R57.8: Other shock (HCC) Additional History: COMPARISON: 05/17/2025. FINDINGS: Tubes and lines: Endotracheal tube, NG tube, and esophageal temperature probe, right jugular approach Monroe-Remington catheter are reidentified without change. Left lung is poorly expanded Atelectasis of the lower lobe of the left lung and left lingular segment are reidentified without significant interval change. Right lung is unremarkable. No pleural effusion or pneumothorax seen. No other newly developed findings in the chest. > Interpreting Provider: Orin Oropeza MD on 05/18/2025 8:32 AM Procedure Note Orin Oropeza MD - 05/18/2025 PROCEDURE: XR CHEST 1VW PORTABLE DATE/TIME OF EXAM: 05/18/2025 5:31 AM CLINICAL INFORMATION: None relevant/not provided if blank. Indication: R06.02: Shortness of breath E87.1: Hyponatremia R57.8: Other shock (HCC) Additional History: COMPARISON: 05/17/2025. FINDINGS: Tubes and lines: Endotracheal tube, NG tube, and esophageal temperature probe, right jugular approach Monroe-Remington catheter are reidentifiedwithout change. Left lung is poorly expanded Atelectasis of the lower lobe of the left lung and left lingular segment are reidentified without significant interval change. Right lung is unremarkable. No pleural effusion or pneumothorax seen. No other newly developed findings in the chest. > Interpreting Provider: Orin Oropeza MD on 05/18/2025 8:32AM Liz Bhagat Jagjit PERFUSIONIST-ORNAMENTAL MACHINE OPERATOR DIAGNOSTIC IMAGING OR DERABLES Final Result * (ABNORMAL) BLOOD GASES ART + COOX PANEL (05/18/2025 4:16 AM [facility]) pH Arterial 7.47(H) 7.35 - 7.45 pH 05/18/2025 4:38 AM [facility] pO2 Arterial 91 80 - 100 mmHg 05/18/2025 4:38 AM [facility] pCO2 Arterial 41 35 - 45 mmHg 4:38 AM [facility] HCO3 Arterial 29.8 20.0 - 30.0 mmol/L 05/18/2025 4:38 AM [facility] BE Arterial 5.6(H) -2.0 - 2.0 mmol/L 05/18/2025 4:38 AM [facility] Oxyhemoglobin Arterial 96.3 % 05/18/2025 4:38 AM [facility] Dexoyhemoglobin (HHB) % <1.0 % 05/18/2025 4:38 AM [facility] Methemoglobin <0.8 0.0 - 2.0 % 05/18/2025 4:38 AM [facility] Carboxyhemoglobin 2.5(H) 0.0 - 2.0 % 2024 4:38 AM [facility] O2 Content Arterial 18.8 Interpret within clinical context ml/dL 05/18/2025 4:38 AM [facility] Hemoglobin by COOX 13.8 12.0 - 15.6 g/dL 05/18/2025 4:38 AM CDT [facility] O2 Saturation Arterial 99 90 - 100 % 05/18/2025 4:38 AM CDT [facility] FI O2 Arterial 30.0 % 05/18/2025 4:38 AM CDT [facility] Blood, arterial ARTERIAL BLOOD SPECIMEN / Unknown Arterial Puncture / Unknown 05/18/2025 4:16 AM CDT 05/18/2025 4:23 AM CDT Narrative [facility] - 05/18/2025 4:38 AM CDT Carboxyhemoglobin Normal Concentration: Non-smokers: 0-2%; Smokers: 0-9%; Toxic: >20% Liz Danielson APRN-ORNAMENTAL MACHINE OPERATOR LAB - BLOOD GASES ORD ERABLES Final Result Performing Organization Address City/[facility]/ZIP Co de Phone Number [address] [address], [place] [phone] * OSMOLALITY URINE (05/18/2025 3:20 AM CDT) Osmolality Urine 223 50 - 1,200 mOsm/kg 05/18/2025 3:45 AM CDT [facility] Urine URINE SPECIMEN OBTAINED BY CLEAN CATCH PROCEDURE / Unknown Collection / Unknown 05/18/2025 3:20 AM CDT 05/18/2025 3:25 AM CDT Linda Lezama MD LAB - URINE CHEMISTRY ORDERA BLES Final Result [address] [address], [place] [phone] * (ABNORMAL) SVO2 FOR RECALIBRATION (05/18/2025 3:05 AM CDT) SVO2 for Recalibration 81.6(H) 66.0 - 77.0 % 05/18/2025 3:29 AM CDT [facility] Blood BLOOD SPECIMEN / Unknown Venipuncture / Unknown 05/18/2025 3:05 AM CDT 05/18/2025 3:25 AM CDT us Linda Lezama MD LAB - CHEMISTRY ORDERABLES F inal Result [facility] [address] [place] [address], [facility] [phone] * (ABNORMAL) BLOOD GASES ART + COOX PANEL (05/18/2025 3:05 AM CDT) pH Arterial 7.49(H) 7.35 - 7.45 pH 05/18/2025 3:29 AM [facility] pO2 Arterial 91 80 - 100 mmHg 05/18/2025 3:29 AM [facility] pCO2 Arterial 37 35 - 45 mmHg 3:29 AM [facility] HCO3 Arterial 28.2 20.0 - 30.0 mmol/L 05/18/2025 3:29 AM [facility] BE Arterial 4.7(H) -2.0 - 2.0 mmol/L 05/18/2025 3:29 AM [facility] Oxyhemoglobin Arterial 96.4 % 05/18/2025 3:29 AM [facility] Dexoyhemoglobin (HHB) % 1.0 % 05/18/2025 3:29 AM [facility] Methemoglobin <0.8 0.0 - 2.0 % 05/18/2025 3:29 AM [facility] Carboxyhemoglobin 2.4(H) 0.0 - 2.0 % 2024 3:29 AM [facility] O2 Content Arterial 19.2 Interpret within clinical context ml/dL 05/18/2025 3:29 AM [facility] Hemoglobin by COOX 14.1 12.0 - 15.6 g/dL 05/18/2025 3:29 AM [facility] O2 Saturation Arterial 99 90 - 100 % 05/18/2025 3:29 AM [facility] FI O2 Arterial 30.0 % 05/18/2025 3:29 AM [facility] Blood, arterial ARTERIAL BLOOD SPECIMEN / Unknown Arterial Puncture / Unknown 05/18/2025 3:05 AM CDT 05/18/2025 3:[address] [facility] - 05/18/2025 3:29 AM CDT Carboxyhemoglobin Normal Concentration: Non-smokers: 0-2%; Smokers: 0-9%; Toxic: >20% Linda Lezama MD LAB - BLOOD GASES ORDERABLES Final Result [facility] [address] [place] [address], [facility] [phone] * (ABNORMAL) RENAL FUNCTION PANEL (05/18/2025 3:05 AM CDT) BUN 16 7 - 26 mg/dL 05/18/2025 4:28 AM [facility] Creatinine 1.04(H) 0.56 - 0.96 mg/dL 05/18/2025 4:28 AM [facility] Sodium 126(L) 136 - 145 mmol/L 05/18/2025 4:28 AM [facility] Potassium 3.5 3.5 - 4.5 mmol/L 05/18/2025 4:28 AM [facility] Chloride 88(L) 98 - 107 mmol/L 05/18/2025 4:28 AM [facility] CO2 27 22 - 29 mmol/L 05/18/2025 4:28 AM [facility] Glucose 107(H) 70 - 99 mg/dL 05/18/2025 4:28 AM [facility] Albumin 2.6(L) 3.4 - 5.0 g/dL 05/18/2025 4:28 AM [facility] Calcium 7.7(L) 8.4 - 10.2 mg/dL 05/18/2025 4:28 AM [facility] Phosphorus 3.4 2.9 - 5.1 mg/dL 05/18/2025 4:28 AM [facility] Anion Gap 11 6 - 16 05/18/2025 4:28 AM [facility] BUN/Creatinine Ratio 15 7 - 23 05/18/2025 4:28 AM CDT [facility] Osmolality Calculated 264(L) 275 - 295 mOsm/kg 05/18/2025 4:28 AM CDT [facility] eGFR by CKD-EPI 60(L) >=90 mL/min/1.7 3 m2 05/18/2025 4:28 AM CDT [facility] Comment:Estimated Glomerular Filtration Rate (eGFR) calculated using the CKD-EPI Creatinine Equation (2020), per the National Kidney Foundation and [place] [employer] recommendations. Blood BLOOD SPECIMEN / Unknown Venipuncture / Unknown 05/18/2025 3:05 AM CDT 05/18/2025 3:31 AM CDT Linda Lezama MD LAB - CHEMISTRY ORDERABLES F inal Result Performing Organization Address City/[facility]/ZIP Co de Phone Number [address] [address], [place] [phone] * (ABNORMAL) OSMOLALITY BLOOD (05/18/2025 3:05 AM CDT) Osmolality 266(L) 275 - 295 mOsm/kg 05/18/2025 5:28 AM CDT [facility] Blood BLOOD SPECIMEN / Unknown Venipuncture / Unknown 05/18/2025 3:05 AM CDT 05/18/2025 3:31 AM CDT Linda Lezama MD LAB - CHEMISTRY ORDERABLES F inal Result Performing Organization Address City/[facility]/ZIP Co de Phone Number [address] [address], [place] [phone] * MAGNESIUM BLOOD (05/18/2025 3:05 AM CDT) Magnesium 1.9 1.6 - 2.6 mg/dL 05/18/2025 4:04 AM CDT [facility] Blood BLOOD SPECIMEN / Unknown Venipuncture / Unknown 05/18/2025 3:05 AM CDT 05/18/2025 3:31 AM CDT us Adryan Shabazz MD LAB - CHEMISTRY ORDERABLES Final Result [facility] [address] [place] [address], [facility] [phone] * (ABNORMAL) CBC W AUTO DIFFERENTIAL (05/18/2025 3:05 AM CDT) WBC 4.5 4.0 - 10.7 x10E9/L 05/18/2025 3:40 AM [facility] RBC Count 4.06 3.90 - 5.20 x10E12/L 05/18/2025 3:40 AM [facility] Hemoglobin 13.6 11.9 - 15.8 g/dL 05/18/2025 3:40 AM [facility] Hematocrit 37.3 34.8 - 46.1 % 05/18/2025 3:40 AM [facility] MCV 91.9 80.0 - 98.0 fL 05/18/2025 3:40 AM [facility] MCH 33.5 26.7 - 33.6 pg 05/18/2025 3:40 AM [facility] MCHC 36.5(H) 31.7 - 36.3 g/dL 05/18/2025 3:40 AM [facility] RDW-CV 17.5(H) 11.3 - 14.8 % 05/18/2025 3:40 AM [facility] Platelet Count 171 150 - 420 x10E9/L 05/18/2025 3:40 AM [facility] MPV 9.5 7.8 - 11.4 fL 05/18/2025 3:40 AM [facility] Neutrophil % 72.7 41.0 - 74.0 % 05/18/2025 3:40 AM [facility] Lymphocyte % 12.7(L) 17.0 - 47.0 % 05/18/2025 3:40 AM [facility] Monocyte % 10.2 3.0 - 11.0 % 05/18/2025 3:40 AM [facility] Eosinophil % 3.1 0.0 - 7.0 % 05/18/2025 3:40 AM CDT [facility] Basophil % 1.1 0.0 - 1.6 % 05/18/2025 3:40 AM [facility] Immature Granulocytes % 0.2 0.0 - 1.0 % 05/18/2025 3:40 AM [facility] Neutrophil Absolute 3.26 1.60 - 7.50 x10E9/L 05/18/2025 3:40 AM T [facility] Lymphocyte Absolute 0.57(L) 1.00 - 4.40 x10E9/L 05/18/2025 3:40 AM [facility] Monocyte Absolute 0.46 0.15 - 1.00 x10E9/L 05/18/2025 3:40 AM [facility] Eosinophil Absolute 0.14 0.00 - 0.60 x10E9/L 05/18/2025 3:40 AM [facility] Basophil Absolute 0.05 0.00 - 0.13 x10E9/L 05/18/2025 3:40 AM [facility] Blood BLOOD SPECIMEN / Unknown Venipuncture / Unknown 05/18/2025 3:05 AM CDT 05/18/2025 3:29 AM CDT us Carline Darby DO LAB - HEMATOLOGY ORDERABLES Ayanna l Result Performing Organization Address [facility]/ZIP Co de Phone Number [address] [address], [facility] [phone] * LACTIC ACID BLOOD (05/18/2025 3:05 AM CDT) Lactic Acid-Stat 1.8 <=2.0 mmol/L 05/18/2025 3:52 AM CDT [facility] Blood BLOOD SPECIMEN / Unknown Venipuncture / Unknown 05/18/2025 3:05 AM CDT 05/18/2025 3:26 AM CDT us Linda Lezama MD LAB - CHEMISTRY ORDERABLES F inal Result Performing Organization Address City/[facility]/ZIP Co de Phone Number [address] [address], [place] [phone] * (ABNORMAL) BILIRUBIN DIRECT (05/18/2025 3:05 AM CDT) Bilirubin Conjugated 4.4(H) 0.1 - 0.5 mg/dL 05/18/2025 4:04 AM CDT [facility] Blood BLOOD SPECIMEN / Unknown Venipuncture / Unknown 05/18/2025 3:05 AM CDT 05/18/2025 3:31 AM CDT Linda Lezama MD LAB - CHEMISTRY ORDERABLES F inal Result Performing Organization Address [facility] Co de Phone Number [address] [address], [facility] [phone] * (ABNORMAL) GLUCOSE - POINT OF CARE (05/17/2025 11:07 PM CDT) Glucose WB/POC 149(H) 70 - 99 mg/dL 05/20/2025 8:38 AM CDT [facility] Specimen Type Arterial/C apillary 05/20/2025 8:38 AM CDT [facility] Blood BLOOD SPECIMEN / Unknown 05/17/2025 11:07 PM CDT 05/20/2025 8:38 AM CDT Linda Lezama MD LAB - POINT OF CARE ORDERABL ES Final Result Performing Organization Address [facility]/ZIP Co de Phone Number [address] [address], [place] [phone] * (ABNORMAL) SVO2 FOR RECALIBRATION (05/17/2025 10:12 PM CDT) SVO2 for Recalibration 82.6(H) 66.0 - 77.0 % 05/17/2025 10:20 PM CDT [facility] Blood BLOOD SPECIMEN / Unknown Venipuncture / Unknown 05/17/2025 10:12 PM CDT 05/17/2025 10:17 PM CDT us Linda Lezama MD LAB - CHEMISTRY ORDERABLES F inal Result [facility] [address] [place] [address], [facility] [phone] * (ABNORMAL) BLOOD GASES ART + COOX PANEL (05/17/2025 10:12 PM CDT) pH Arterial 7.52(H) 7.35 - 7.45 pH 05/17/2025 10:21 PM [facility] pO2 Arterial 115(H) 80 - 100 mmHg 05/17/2025 10:21 PM [facility] pCO2 Arterial 35 35 - 45 mmHg 10:21 PM [facility] HCO3 Arterial 28.6 20.0 - 30.0 mmol/L 05/17/2025 10:21 PM [facility] BE Arterial 5.7(H) -2.0 - 2.0 mmol/L 05/17/2025 10:21 PM [facility] Oxyhemoglobin Arterial 90.8 % 05/17/2025 10:21 PM [facility] Comment:I^Interference Detec dharmesh Dexoyhemoglobin (HHB) % 1.2 % 05/17/2025 10:21 PM [facility] Comment:I^Interference Detec dharmesh Methemoglobin <0.8 0.0 - 2.0 % 05/17/2025 10:21 PM [facility] Comment:I^Interference Detec dharmesh Carboxyhemoglobin 2.2(H) 0.0 - 2.0 % 2024 10:21 PM [facility] Comment:I^Interference Detec dharmesh O2 Content Arterial 17.3 Interpret within clinical context ml/dL 05/17/2025 10:21 PM [facility] Hemoglobin by COOX 13.4 12.0 - 15.6 g/dL 05/17/2025 10:21 PM [facility] Comment:I^Interference Detec dharmesh O2 Saturation Arterial 99 90 - 100 % 05/17/2025 10:21 PM CDT [facility] Comment:I^Interference Detec dharmesh FI O2 Arterial 30.0 % 05/17/2025 10:21 PM CDT [facility] Blood, arterial ARTERIAL BLOOD SPECIMEN / Unknown Arterial Puncture / Unknown 05/17/2025 10:12 PM CDT 05/17/2025 10:17 PM CDT Narrative [facility] - 05/17/2025 10:21 PM CDT Carboxyhemoglobin Normal Concentration: Non-smokers: 0-2%; Smokers: 0-9%; Toxic: >20% Linda Lezama MD LAB - BLOOD GASES ORDERABLES Final Result [address] [address], [place] [phone] * MAGNESIUM BLOOD (05/17/2025 10:12 PM CDT) Magnesium 1.9 1.6 - 2.6 mg/dL 05/17/2025 10:50 PM CDT [facility] Blood BLOOD SPECIMEN / Unknown Venipuncture / Unknown 05/17/2025 10:12 PM CDT 05/17/2025 10:20 PM CDT Adryan Shabazz MD LAB - CHEMISTRY ORDERABLES Final Result [address] [address], [place] [phone] * XR Chest 1Vw Portable (05/17/2025 7:17 PM CDT) Anatomical Region Laterality Modality Chest Digital Radiogra phy 05/17/2025 10:5 5 PM CDT Narrative 05/17/2025 10:57 PM CDT PROCEDURE: XR CHEST 1VW PORTABLE DATE/TIME OF EXAM: 05/17/2025 7:17 PM CLINICAL INFORMATION: None relevant/not provided if blank. Indication: R57.8: Other shock (HCC) Additional History: COMPARISON: Radiograph on the same day at 3:47 AM. FINDINGS: Tubes and lines: Endotracheal tube, NG tube and temperature probes are seen. Right jugular approach Monroe-Remington catheter is noted and distal end is seen in the region of right pulmonary artery. Left lung is poorly expanded. Atelectasis of the left lower lobe and lingular segment of the lung. There is associated leftward shift of the heart and mediastinum. Right lung is unremarkable. These findings are not significantly changed from previous study. No pleural effusion or pneumothorax seen. No other newly developed findings in the chest. > Interpreting Provider: Orin Oropeza MD on 05/17/2025 10:57 PM Procedure Note Orin Oropeza MD - 05/17/2025 PROCEDURE: XR CHEST 1VW PORTABLE DATE/TIME OF EXAM: 05/17/2025 7:17 PM CLINICAL INFORMATION: None relevant/not provided if blank. Indication: R57.8: Other shock (HCC) Additional History: COMPARISON: Radiograph on the same day at 3:47 AM. FINDINGS: Tubes and lines: Endotracheal tube, NG tube and temperature probes are seen. Right jugular approach Monroe-Remington catheter is noted and distal endis seen in the region of right pulmonary artery. Left lung is poorly expanded. Atelectasis of the left lower lobe and lingular segment of the lung.There is associated leftward shift of the heart and mediastinum. Right lung is unremarkable. These findings are not significantly changed from previous study. No pleural effusion or pneumothorax seen. No other newly developed findings in the chest. > Interpreting Provider: rOin Oropeza MD on 510:57 PM us Linda Lezama MD DIAGNOSTIC IMAGING ORDERABLE S Final Result * (ABNORMAL) SVO2 FOR RECALIBRATION (05/17/2025 6:23 PM CDT) [facility] SVO2 for Recalibration 78.7(H) 66.0 - 77.0 % 05/17/2025 6:34 PM CDT [facility] Blood BLOOD SPECIMEN / Unknown Venipuncture / Unknown 05/17/2025 6:23 PM CDT 05/17/2025 6:32 PM CDT Linda Lezama MD LAB - CHEMISTRY ORDERABLES F inal Result [facility] [address] [place] [address], [facility] [phone] * (ABNORMAL) CBC W/O DIFFERENTIAL (05/17/2025 6:23 PM CDT) Pathologist [facility] [place] WBC 4.1 4.0 - 10.7 x10E9/L 05/17/2025 6:58 PM [facility] RBC Count 4.08 3.90 - 5.20 x10E12/L 05/17/2025 6:58 PM [facility] Hemoglobin 13.6 11.9 - 15.8 g/dL 05/17/2025 6:58 PM [facility] Hematocrit 37.1 34.8 - 46.1 % 05/17/2025 6:58 PM [facility] MCV 90.9 80.0 - 98.0 fL 05/17/2025 6:58 PM [facility] MCH 33.3 26.7 - 33.6 pg 05/17/2025 6:58 PM [facility] MCHC 36.7(H) 31.7 - 36.3 g/dL 05/17/2025 6:58 PM [facility] RDW-CV 17.2(H) 11.3 - 14.8 % 05/17/2025 6:58 PM [facility] Platelet Count 162 150 - 420 x10E9/L 05/17/2025 6:58 PM [facility] MPV 9.6 7.8 - 11.4 fL 05/17/2025 6:58 PM [facility] Blood BLOOD SPECIMEN / Unknown Venipuncture / Unknown 05/17/2025 6:23 PM CDT 05/17/2025 6:32 PM CDT us Linda Mikhalkova MD LAB - HEMATOLOGY ORDERABLES Final Result [facility] [address] [place] [id number], [facility] [phone] * (ABNORMAL) BLOOD GASES ART + COOX PANEL (05/17/2025 6:23 PM CDT) pH Arterial 7.47(H) 7.35 - 7.45 pH 05/17/2025 6:34 PM [facility] pO2 Arterial 104(H) 80 - 100 mmHg 05/17/2025 6:34 PM [facility] pCO2 Arterial 35 35 - 45 mmHg 6:34 PM [facility] HCO3 Arterial 25.5 20.0 - 30.0 mmol/L 05/17/2025 6:34 PM [facility] BE Arterial 2.1(H) -2.0 - 2.0 mmol/L 05/17/2025 6:34 PM [facility] Oxyhemoglobin Arterial 97.0 % 05/17/2025 6:34 PM [facility] Dexoyhemoglobin (HHB) % <1.0 % 05/17/2025 6:34 PM [facility] Methemoglobin <0.8 0.0 - 2.0 % 05/17/2025 6:34 PM [facility] Carboxyhemoglobin 1.9 0.0 - 2.0 % 2024 6:34 PM [facility] O2 Content Arterial 17.9 Interpret within clinical context ml/dL 05/17/2025 6:34 PM [facility] Hemoglobin by COOX 13.0 12.0 - 15.6 g/dL 05/17/2025 6:34 PM [facility] O2 Saturation Arterial 99 90 - 100 % 05/17/2025 6:34 PM [facility] FI O2 Arterial 30.0 % 05/17/2025 6:34 PM [facility] Blood, arterial ARTERIAL BLOOD SPECIMEN / Unknown Arterial Puncture / Unknown 05/17/2025 6:23 PM CDT 05/17/2025 6:31 PM CDT Narrative [facility] - 05/17/2025 6:34 PM CDT Carboxyhemoglobin Normal Concentration: Non-smokers: 0-2%; Smokers: 0-9%; Toxic: >20% Linda Lezama MD LAB - BLOOD GASES ORDERABLES Final Result Performing Organization Address [facility]/ZIP Co de Phone Number [address] [phone], [facility] [phone] * LACTIC ACID BLOOD (05/17/2025 6:23 PM CDT) Pathologist [facility] [place] Lactic Acid-Stat 1.7 <=2.0 mmol/L 05/17/2025 7:03 PM CDT [facility] Blood BLOOD SPECIMEN / Unknown Venipuncture / Unknown 05/17/2025 6:23 PM CDT 05/17/2025 6:32 PM CDT Linda Lezama MD LAB - CHEMISTRY ORDERABLES F inal Result Performing Organization Address [facility] Co de Phone Number [address] [phone], [facility] [facility] [phone] * EKG 12-Lead (05/17/2025 6:14 PM CDT) Pathologist [facility], [place] Ventricular Rate 103 BPM [facility] MUSE QRS Duration ms 86 ms [facility] MUSE Q-T Interval ms 198 ms [facility] MUSE QTC Calculation (Bezet) 259 ms [facility] MUSE Calculated R Duvall 139 degrees [facility] MUSE Calculated T Duvall -58 degrees [facility] MUSE Interpretation EKG ATRIAL FIBRILLATION WITH RAPID VENTRICULAR RESPONSE WITH PREMATURE VENTRICULAR OR ABERRANTLY CONDUCTED COMPLEXES POSSIBLE RIGHT VENTRICULAR HYPERTROPHY ANTEROLATERAL INFARCT , AGE UNDETERMINED ABNORMAL ECG WHEN COMPARED WITH ECG OF 16-MAY-2025 04:07 NO SIGNIFICANT CHANGE WAS FOUND Confirmed by DAREK PARADA MD ([id number]) on 05/21/2025 8:36:40 AM [facility] MUSE 05/17/2025 6:14 PM CDT 05/21/2025 8:36 AM CDT Linda Lezama MD ECG ORDERABLES Edited Resul t - Final Performing Organization Address [facility]/ZIP Co de Phone Number [facility] MUSE * (ABNORMAL) GLUCOSE - POINT OF CARE (05/17/2025 5:57 PM CDT) Pathologist [facility] [place] Glucose WB/POC 114(H) 70 - 99 mg/dL 05/17/2025 6:01 PM CDT [facility] Specimen Type Arterial/C apillary 05/17/2025 6:01 PM CDT [facility] Blood BLOOD SPECIMEN / Unknown 05/17/2025 5:57 PM CDT 05/17/2025 6:01 PM CDT Linda Lezama MD LAB - POINT OF CARE ORDERABL ES Final Result Performing Organization Address [facility] de Phone Number [address] [address], [place] [phone] * (ABNORMAL) PHOSPHORUS BLOOD (05/17/2025 5:51 PM CDT) [facility] Phosphorus 2.1(L) 2.9 - 5.1 mg/dL 05/17/2025 6:43 PM CDT [facility] Blood BLOOD SPECIMEN / Unknown Venipuncture / Unknown 05/17/2025 5:51 PM CDT 05/17/2025 5:55 PM CDT Linda Lezama MD LAB - CHEMISTRY ORDERABLES F inal Result Performing Organization Address [facility] Co de Phone Number [address] [address], [place] [phone] * (ABNORMAL) COMPREHENSIVE METABOLIC PANEL (05/17/2025 5:51 PM CDT) Pathologist [facility] [place] BUN 19 7 - 26 mg/dL 05/17/2025 6:56 PM CDT [facility] Creatinine 1.04(H) 0.56 - 0.96 mg/dL 05/17/2025 6:56 PM [facility] Sodium 123(LL) 136 - 145 mmol/L 05/17/2025 6:56 PM [facility] Potassium 3.2(L) 3.5 - 4.5 mmol/L 05/17/2025 6:56 PM [facility] Chloride 88(L) 98 - 107 mmol/L 05/17/2025 6:56 PM [facility] CO2 26 22 - 29 mmol/L 05/17/2025 6:56 PM [facility] Glucose 133(H) 70 - 99 mg/dL 05/17/2025 6:56 PM [facility] Calcium 7.7(L) 8.4 - 10.2 mg/dL 05/17/2025 6:56 PM [facility] Protein Total 5.9(L) 6.0 - 8.3 g/dL 05/17/2025 6:56 PM [facility] Albumin 2.6(L) 3.4 - 5.0 g/dL 05/17/2025 6:56 PM [facility] Bilirubin Total 6.1(H) 0.2 - 1.2 mg/dL 05/17/2025 6:56 PM [facility] Alkaline Phosphatase 286(H) 40 - 150 U/L 05/17/2025 6:56 PM [facility] ALT 35 5 - 55 U/L 05/17/2025 6:56 PM [facility] AST 56(H) 5 - 34 U/L 05/17/2025 6:56 PM [facility] Anion Gap 9 6 - 16 05/17/2025 6:56 PM [facility] BUN/Creatinine Ratio 18 7 - 23 05/17/2025 6:56 PM [facility] Osmolality Calculated 260(L) 275 - 295 mOsm/kg 05/17/2025 6:56 PM [facility] Albumin/Globulin Ratio 0.8(L) 1.1 - 2.3 05/17/2025 6:56 PM [facility] eGFR by CKD-EPI 60(L) >=90 mL/min/1.7 3 m2 05/17/2025 6:56 PM [facility] Comment:Estimated Glomerular Filtration Rate (eGFR) calculated using the CKD-EPI Creatinine Equation (2020), per the National Kidney Foundation and [place] [employer] recommendations. Blood BLOOD SPECIMEN / Unknown Venipuncture / Unknown 05/17/2025 5:51 PM CDT 05/17/2025 5:55 PM CDT Linda Lezama MD LAB - CHEMISTRY ORDERABLES F inal Result Performing Organization Address City/[facility]/ZIP Co de Phone Number [address] [address], [place] [phone] * LACTIC ACID BLOOD (05/17/2025 5:51 PM CDT) Lactic Acid-Stat 1.9 <=2.0 mmol/L 05/17/2025 6:31 PM CDT [facility] Blood BLOOD SPECIMEN / Unknown Venipuncture / Unknown 05/17/2025 5:51 PM CDT 05/17/2025 5:55 PM CDT Linda Lezama MD LAB - CHEMISTRY ORDERABLES F inal Result Performing Organization Address [facility] Co de Phone Number [address] [address], [place] [phone] * MAGNESIUM BLOOD (05/17/2025 5:51 PM CDT) Magnesium 2.1 1.6 - 2.6 mg/dL 05/17/2025 6:43 PM CDT [facility] Blood BLOOD SPECIMEN / Unknown Venipuncture / Unknown 05/17/2025 5:51 PM CDT 05/17/2025 5:55 PM CDT Adryan Shabazz MD LAB - CHEMISTRY ORDERABLES Final Result Performing Organization Address City/[facility] Co de Phone Number [address] [address], [place] [phone] * MRSA PCR (05/17/2025 2:40 PM CDT) Pathologist [facility] [place] MRSA DNA by PCR Not detected Not detected 05/17/2025 9:06 PM CDT [facility] Microbiology SPECIMEN FROM NASAL FOSSAE / Unknown Collection / Unknown 05/17/2025 2:40 PM CDT 05/17/2025 2:48 PM CDT Narrative [facility] - 05/17/2025 9:06 PM CDT Methicillin-resistant Staphylococcus aureus (MRSA) DNA is not detected (presumed not colonized with MRSA). Linda Lezama MD LAB - MICROBIOLOGY ORDERABLE S Final Result Performing Organization Address City/[facility]/ZIP Co de Phone Number [facility] [address] [place] [address], [facility] [phone] * CULTURE BLOOD (05/17/2025 2:40 PM CDT) [facility] Culture No growth day 5 DEZ 05/22/2025 7:31 PM CDT [facility] Blood PERIPHERAL BLOOD / Unknown Venipuncture / Unknown 05/17/2025 2:40 PM CDT 05/17/2025 2:48 PM CDT Linda Lezama MD LAB - MICROBIOLOGY ORDERABLE S Final Result Performing Organization Address [facility] Co de Phone Number [facility] [address] [place] [address], [facility] [phone] * LACTIC ACID BLOOD (05/17/2025 2:40 PM CDT) Pathologist [facility] [place] Lactic Acid-Stat 1.9 <=2.0 mmol/L 05/17/2025 3:17 PM CDT [facility] Blood BLOOD SPECIMEN / Unknown Venipuncture / Unknown 05/17/2025 2:40 PM CDT 05/17/2025 2:46 PM CDT Linda Lezama MD LAB - CHEMISTRY ORDERABLES F inal Result Performing Organization Address City/[facility]/ZIP Co de Phone Number [facility] [address] [place] [address], [facility] [phone] * URINALYSIS REFLEX MICROSCOPIC REFLEX CULTURE (05/17/2025 2:39 PM CDT) Color UA Yellow Yellow, Straw 05/17/2025 3:12 PM CDT [facility] Clarity UA Clear Clear 05/17/2025 3:12 PM CDT [facility] Glucose UA Normal Normal 05/17/2025 3:12 PM CDT [facility] Bilirubin UA Negative Negative 05/17/2025 3:12 PM CDT [facility] Ketone UA Negative Negative 05/17/2025 3:12 PM CDT [facility] Specific [place] UA 1.006 1.005 - 1.030 05/17/2025 3:12 PM CDT [facility] Blood UA Negative Negative 05/17/2025 3:12 PM CDT [facility] pH UA 7.0 5.0 - 8.0 05/17/2025 3:12 PM CDT [facility] Protein UA Negative Negative 05/17/2025 3:12 PM CDT [facility] Urobilinogen UA Normal Normal mg/dL 05/17/2025 3:12 PM CDT [facility] Nitrite UA Negative Negative 05/17/2025 3:12 PM CDT [facility] Leukocyte Esterase UA Negative Negative 05/17/2025 3:12 PM CDT [facility] Reflex Status Culture not indicated 05/17/2025 3:12 PM CDT [facility] Urine Microscopy Urine microscopy not indicated 05/17/2025 3:12 PM CDT [facility] Urine URINE SPECIMEN OBTAINED BY SINGLE CATHETERIZATION OF URINARY BLADDER / Unknown Collection / Unknown 05/17/2025 2:39 PM CDT 05/17/2025 2:47 PM CDT us Linda Lezama MD LAB - URINALYSIS ORDERABLES Final Result [address] [address], [facility] [phone] * CULTURE BLOOD (05/17/2025 2:36 PM CDT) Culture No growth day 5 DEZ 05/22/2025 7:31 PM CDT [facility] Blood PERIPHERAL BLOOD / Unknown Venipuncture / Unknown 05/17/2025 2:36 PM CDT 05/17/2025 2:48 PM CDT us Linda Lezama MD LAB - MICROBIOLOGY ORDERABLE S Final Result [facility] [address] [place], [place] [address], [facility] [phone] * US Abdomen Ltd W Comp Doppler (05/17/2025 2:19 PM CDT) Anatomical Region Laterality Modality Abdomen Ultrasound 05/17/2025 2:55 PM CDT Impressions 05/17/2025 4:13 PM CDT IMPRESSION: 1.Coarsened liver with a mildly nodular contour, suggestive of a cirrhotic morphology. Given the dilation of the intrahepatic inferior vena cava and hepatic veins, suspect these are sequela of congestive hepatopathy. 2.Normal liver Doppler with patent hepatic vasculature. Of note, proper hepatic artery not well visualized. 3.Status post cholecystectomy. > Dictated by Grace Lawrence (development vice president). > Dictated by Grace Lawrence 05/17/2025 2:55 PM > Dictated by Instrument Technologist IKenney have personally reviewed and interpreted this examination/study. > Interpreting Provider: Kenney Storm on 05/17/2025 4:13 PM Narrative 05/17/2025 4:13 PM CDT PROCEDURE: US ABDOMEN LTD W COMP DOPPLER DATE/TIME OF EXAM: 05/17/2025 2:19 PM CLINICAL INFORMATION: None relevant/not provided if blank. Indication: E80.6: Hyperbilirubinemia R74.8: Elevated alkaline phosphatase level Additional History: COMPARISON: CT chest abdomen and pelvis 05/15/2025. TECHNIQUE: Ultrasound of the upper abdomen' was performed utilizing standard protocol. Grayscale images were obtained; additionally, Color Doppler and pulse wave Spectral Doppler interrogation was performed and interpreted. FINDINGS: Abdomen: Liver appears coarse with a nodular contour. This is better appreciated on the CT scan from 05/15/2025. No discrete hepatic mass or intrahepatic biliary dilatation is seen. The patient is status post cholecystectomy The common bile duct is nondilated, measuring 5 mm. The right kidney measures 12.1 x 5.3 x 5.5 cm. Limited views of the right kidney reveal no evidence of nephrolithiasis or hydronephrosis. The spleen is not well-visualized. The visible pancreas is normal in echogenicity. No ascites is present. Liver Doppler: Color and spectral Doppler evaluation demonstrates patency of the hepatic veins with appropriate flow direction and multiphasic waveforms. The main, left, and right portal veins appear patent with normal hepatopetal flow. The main portal vein demonstrates a normal phasic waveform and velocity measures 23.8 cm/s. The proper hepatic artery is not well-visualized on this exam. The intrahepatic inferior vena cava and hepatic veins appear dilated likely representing congestive hepatopathy. This is better visualized on the CT scan from 05/15/2025 Procedure Note Kenney Storm MD - 05/17/2025 PROCEDURE: US ABDOMEN LTD W COMP DOPPLER DATE/TIME OF EXAM: 05/17/2025 2:19 PM CLINICAL INFORMATION: None relevant/not provided if blank. Indication: E80.6: Hyperbilirubinemia R74.8: Elevated alkaline phosphatase level Additional History: COMPARISON: CT chest abdomen and pelvis 05/15/2025. TECHNIQUE: Ultrasound of the upper abdomen' was performed utilizing standardprotocol. Grayscale images were obtained; additionally, Color Doppler and pulsewave Spectral Doppler interrogation was performed and interpreted. FINDINGS: Abdomen: Liver appears coarse with a nodular contour. This is better appreciatedon the CT scan from 05/15/2025. No discrete hepatic mass or intrahepaticbiliary dilatation is seen. The patient is status post cholecystectomy The common bile duct is nondilated, measuring 5 mm. The right kidney measures 12.1 x 5.3 x 5.5 cm. Limited views of theright kidney reveal no evidence of nephrolithiasis or hydronephrosis. Thespleen is not well-visualized. The visible pancreas is normal in echogenicity.No ascites is present. Liver Doppler: Color and spectral Doppler evaluation demonstrates patency of thehepatic veins with appropriate flow direction and multiphasic waveforms. The main, left, and right portal veins appear patent with normal hepatopetal flow. The main portal vein demonstrates a normal phasic waveform and velocity measures 23.8 cm/s. The proper hepatic artery is not well-visualized on this exam. The intrahepatic inferior vena cava and hepatic veins appear dilatedlikely representing congestive hepatopathy. This is better visualized on the CT scan from 05/15/2025 IMPRESSION: 1.Coarsened liver with a mildly nodular contour, suggestive of acirrhotic morphology. Given the dilation of the intrahepatic inferior vena cavaand hepatic veins, suspect these are sequela of congestive hepatopathy. 2.Normal liver Doppler with patent hepatic vasculature. Of note, proper hepatic artery not well visualized. 3.Status post cholecystectomy. > Dictated by Grace Lawrence (development vice president). > Dictated by Grace Lawrence 05/17/2025 2:55 PM > Dictated by Instrument Technologist IKenney have personally reviewed and interpreted this examination/study. > Interpreting Provider: Kenney Storm on 05/17/2025 4:13 PM us Linda Lezama MD US ORDERABLES Final Result * CARDIAC EKG ORDER (05/17/2025 1:06 PM CDT) Narrative 05/17/2025 1:06 PM CDT Ordered by an unspecified provider. us Scanned Document CARDIAC SERVICES ORDERABLES Fin al Result * (ABNORMAL) BLOOD GASES ART + COOX PANEL (05/17/2025 12:19 PM CDT) pH Arterial 7.54(H) 7.35 - 7.45 pH 05/17/2025 12:27 PM T [facility] pO2 Arterial 95 80 - 100 mmHg 05/17/2025 12:27 PM [facility] pCO2 Arterial 29(L) 35 - 45 mmHg 12:27 PM [facility] HCO3 Arterial 24.8 20.0 - 30.0 mmol/L 05/17/2025 12:27 PM [facility] BE Arterial 3.0(H) -2.0 - 2.0 mmol/L 05/17/2025 12:27 PM [facility] Oxyhemoglobin Arterial 96.3 % 05/17/2025 12:27 PM [facility] Dexoyhemoglobin (HHB) % 3.1 % 05/17/2025 12:27 PM [facility] Methemoglobin <0.8 0.0 - 2.0 % 05/17/2025 12:27 PM [facility] Carboxyhemoglobin 0.6 0.0 - 2.0 % 2024 12:27 PM [facility] O2 Content Arterial 18.0 Interpret within clinical context ml/dL 05/17/2025 12:27 PM [facility] Hemoglobin by COOX 13.2 12.0 - 15.6 g/dL 05/17/2025 12:27 PM [facility] O2 Saturation Arterial 97 90 - 100 % 05/17/2025 12:27 PM [facility] FI O2 Arterial 30.0 % 05/17/2025 12:27 PM [facility] Blood, arterial ARTERIAL BLOOD SPECIMEN / Unknown Arterial Puncture / Unknown 05/17/2025 12:19 PM CDT 05/17/2025 12:21 PM T Narrative [facility] - 05/17/2025 12:27 PM CD Carboxyhemoglobin Normal Concentration: Non-smokers: 0-2%; Smokers: 0-9%; Toxic: >20% us Linda Lezama MD LAB - BLOOD GASES ORDERABLES Final Result Performing Organization Address City/State/[facility] Co de Phone Number [facility] [address] [place] [address], [facility] [phone] * (ABNORMAL) GLUCOSE - POINT OF CARE (05/17/2025 12:10 PM CDT) Glucose WB/POC 142(H) 70 - 99 mg/dL 05/17/2025 12:21 PM [facility] Specimen Type Arterial/C apillary 05/17/2025 12:21 PM [facility] Blood BLOOD SPECIMEN / Unknown 05/17/2025 12:10 PM CDT 05/17/2025 12:20 PM CDT Linda Lezama MD LAB - POINT OF CARE ORDERABL ES Final Result Performing Organization Address City/[facility]/ZIP Co de Phone Number [address] [address], [facility] [phone] * MAGNESIUM BLOOD (05/17/2025 9:50 AM CDT) Magnesium 2.1 1.6 - 2.6 mg/dL 05/17/2025 10:40 AM CDT [facility] Blood BLOOD SPECIMEN / Unknown Venipuncture / Unknown 05/17/2025 9:50 AM CDT 05/17/2025 9:59 AM CDT Adryan Shabazz MD LAB - CHEMISTRY ORDERABLES Final Result Performing Organization Address [facility] Co de Phone Number [address] [address], [facility] [phone] * CT Head Wo Contrast (05/17/2025 8:46 AM CDT) Anatomical Region Laterality Modality Head Computed Tomogra phy 05/17/2025 8:55 AM CDT Impressions 05/17/2025 9:24 AM CDT IMPRESSION: 1.No acute intracranial hemorrhage, midline shift, or mass effect. 2.Left side the sinusitis. The left nasogastric tube is in place. > Dictated by Claire Ortiz MD, (development vice president). > Dictated by Instrument Technologist I, Tripp Pablo MD have personally reviewed and interpreted this examination/study. > Interpreting Provider: Tripp Pablo MD on 05/17/2025 9:24 AM Narrative 05/17/2025 9:24 AM CDT PROCEDURE: CT HEAD WO CONTRAST, DATE/TIME OF EXAM: 05/17/2025 8:46 AM, LOCATION [facility] INDICATION: E87.1: Hyponatremia ADDITIONAL CLINICAL INFORMATION: Ordering Provider Reason For Exam: hyponatremia, obtunded Technologist Note: Additional: TECHNIQUE: CT of the head was performed without contrast according to standard protocol. COMPARISON: No prior study is available for comparison at the time of this dictation. FINDINGS: No acute intracranial hemorrhage or intra- or extra-axial fluid collections are identified. There is mild cerebral volume loss with associated ex vacuo ventricular dilatation. The basal cisterns are patent. No mass effect or midline shift is seen. The hahn-white matter differentiation is normal. Periventricular white matter hypoattenuation is a nonspecific finding that may be indicative of chronic small vessel ischemic disease. There is atherosclerotic calcification of the carotid siphons. Other than small volume of fluid in the left maxillary and frontal sinuses and some of left ethmoid air cells, the visualized portions of the orbits, paranasal sinuses, and mastoids appear normal. No acute calvarial fracture is identified. Partially visualized left nasogastric tube with nasopharyngeal retained fluid. Procedure Note Tripp Pablo MD - 05/17/2025 PROCEDURE: CT HEAD WO CONTRAST, DATE/TIME OF EXAM: 05/17/2025 8:46 AM, LOCATION [facility] INDICATION: E87.1: Hyponatremia ADDITIONAL CLINICAL INFORMATION: Ordering Provider Reason For Exam: hyponatremia, obtunded Technologist Note: Additional: TECHNIQUE: CT of the head was performed without contrast according to standard protocol. COMPARISON: No prior study is available for comparison at the time ofthis dictation. FINDINGS: No acute intracranial hemorrhage or intra- or extra-axial fluidcollections are identified. There is mild cerebral volume loss with associated exvacuo ventricular dilatation. The basal cisterns are patent. No mass effect or midline shift is seen. The hahn-white matter differentiation is normal. Periventricular white matter hypoattenuation is a nonspecific findingthat may be indicative of chronic small vessel ischemic disease. There is atherosclerotic calcification of the carotid siphons. Other than small volume of fluid in the left maxillary and frontalsinuses and some of left ethmoid air cells, the visualized portions of theorbits, paranasal sinuses, and mastoids appear normal. No acute calvarial fracture is identified. Partially visualized left nasogastric tube with nasopharyngeal retained fluid. IMPRESSION: 1.No acute intracranial hemorrhage, midline shift, or mass effect. 2.Left side the sinusitis. The left nasogastric tube is in place. > Dictated by Claire Ortiz MD, (development vice president). > Dictated by Instrument Technologist I, Tripp Pablo MD have personally reviewed and interpreted this examination/study. > Interpreting Provider: Tripp Pablo MD on 05/17/2025 9:24 AM us Linda Lezama MD CT ORDERABLES Final Result * (ABNORMAL) GLUCOSE - POINT OF CARE (05/17/2025 7:41 AM CDT) Glucose WB/POC 196(H) 70 - 99 mg/dL 05/17/2025 7:43 AM [facility] Specimen Type Arterial/C apillary 05/17/2025 7:43 AM [facility] Blood BLOOD SPECIMEN / Unknown 05/17/2025 7:41 AM CDT 05/17/2025 7:43 AM CDT us iLnda Lezama MD LAB - POINT OF CARE ORDERABL ES Final Result [address] [address], [facility] [phone] * (ABNORMAL) RENAL FUNCTION PANEL (05/17/2025 7:33 AM CDT) BUN 23 7 - 26 mg/dL 05/17/2025 8:29 AM [facility] Creatinine 1.18(H) 0.56 - 0.96 mg/dL 05/17/2025 8:29 AM [facility] Sodium 124(LL) 136 - 145 mmol/L 05/17/2025 8:29 AM [facility] Potassium 3.4(L) 3.5 - 4.5 mmol/L 05/17/2025 8:29 AM [facility] Chloride 89(L) 98 - 107 mmol/L 05/17/2025 8:29 AM [facility] CO2 26 22 - 29 mmol/L 05/17/2025 8:29 AM [facility] Glucose 184(H) 70 - 99 mg/dL 05/17/2025 8:29 AM [facility] Albumin 2.8(L) 3.4 - 5.0 g/dL 05/17/2025 8:29 AM [facility] Calcium 8.2(L) 8.4 - 10.2 mg/dL 05/17/2025 8:29 AM [facility] Phosphorus 2.0(L) 2.9 - 5.1 mg/dL 05/17/2025 8:29 AM [facility] Anion Gap 9 6 - 16 05/17/2025 8:29 AM [facility] BUN/Creatinine Ratio 19 7 - 23 05/17/2025 8:29 AM [facility] Osmolality Calculated 266(L) 275 - 295 mOsm/kg 05/17/2025 8:29 AM [facility] eGFR by CKD-EPI 52(L) >=90 mL/min/1.7 3 m2 05/17/2025 8:29 AM [facility] Comment:Estimated Glomerular Filtration Rate (eGFR) calculated using the CKD-EPI Creatinine Equation (2020), per the National Kidney Foundation and [place] [employer] recommendations. Blood BLOOD SPECIMEN / Unknown Venipuncture / Unknown 05/17/2025 7:33 AM CDT 05/17/2025 8:00 AM CDT Linda Lezama MD LAB - CHEMISTRY ORDERABLES F inal Result [address] [address], [facility] [phone] * (ABNORMAL) LACTIC ACID BLOOD (05/17/2025 7:33 AM CDT) Lactic Acid-Stat 2.4(H) <=2.0 mmol/L 05/17/2025 8:30 AM T [facility] Blood BLOOD SPECIMEN / Unknown Venipuncture / Unknown 05/17/2025 7:33 AM CDT 05/17/2025 8:00 AM CDT us Linda Lezama MD LAB - CHEMISTRY ORDERABLES F inal Result [address] [place] [address], [place] [phone] * (ABNORMAL) GLUCOSE - POINT OF CARE (05/17/2025 7:32 AM CDT) Glucose WB/POC 175(H) 70 - 99 mg/dL 05/17/2025 7:36 AM CDT [facility] Specimen Type Venous 05/17/2025 7:36 AM CDT [facility] Blood BLOOD SPECIMEN / Unknown 05/17/2025 7:32 AM CDT 05/17/2025 7:36 AM CDT Linda Lezama MD LAB - POINT OF CARE ORDERABL ES Final Result [address] [address], [place] [phone] * (ABNORMAL) GLUCOSE - POINT OF CARE (05/17/2025 5:21 AM CDT) Glucose WB/POC 211(H) 70 - 99 mg/dL 05/17/2025 5:25 AM CDT [facility] Specimen Type Arterial/C apillary 05/17/2025 5:25 AM CDT [facility] Blood BLOOD SPECIMEN / Unknown 05/17/2025 5:21 AM CDT 05/17/2025 5:25 AM CDT Linda Lezama MD LAB - POINT OF CARE ORDERABL ES Final Result [address] [address], [place] [phone] * (ABNORMAL) BLOOD GASES GATO + COOX PANEL (05/17/2025 4:10 AM CDT) pH Venous 7.50(H) 7.32 - 7.42 pH 05/17/2025 4:16 AM CDT [facility] pO2 Venous 62(H) 35 - 40 mmHg 05/17/2025 4:16 AM [facility] pCO2 Venous 28(L) 40 - 50 mmHg 05/17/2025 4:16 AM [facility] HCO3 Venous 21.8 20 - 30 mmol/L 05/17/2025 4:16 AM [facility] Base Excess Venous -0.5 -2.0 - 2.0 mmol/L 05/17/2025 4:16 AM [facility] Oxyhemoglobin Venous 91.2 % 05/2025 4:16 AM [facility] Deoxyhemoglobin (HHB) Venous % 6.6 % 05/17/2025 4:16 AM [facility] Methemoglobin <0.8 0.0 - 2.0 % 05/17/2025 4:16 AM [facility] Carboxyhemoglobin 1.5 0.0 - 2.0 % 2024 4:16 AM [facility] O2 Content Venous 14.9 Interpret within clinical context ml/dL 05/17/2025 4:16 AM [facility] Hemoglobin by COOX 11.6(L) 12.0 - 15.6 g/dL 05/17/2025 4:16 AM [facility] O2 Saturation Venous 93 >=70 % 05/2025 4:16 AM [facility] FI O2 Mixed Venous 30.0 % 2024 4:16 AM [facility] Blood BLOOD SPECIMEN / Unknown Venipuncture / Unknown 05/17/2025 4:10 AM CDT 05/17/2025 4:[address] [facility] - 05/17/2025 4:16 AM [facility] Carboxyhemoglobin Normal Concentration: Non-smokers: 0-2%; Smokers: 0-9%; Toxic: >20% us Linda Lezama MD LAB - BLOOD GASES ORDERABLES Final Result [facility] [address] [place] [address], [facility] [phone] * XR Chest 1Vw Portable (05/17/2025 3:56 AM CDT) Anatomical Region Laterality Modality Chest Digital Radiogra phy 05/18/2025 8:42 AM CDT Narrative 05/18/2025 11:55 AM CDT PROCEDURE: XR CHEST 1VW PORTABLE, DATE/TIME OF EXAM: 05/17/2025 3:56 AM, LOCATION [facility] INDICATION: E87.1: Hyponatremia ADDITIONAL CLINICAL INFORMATION: Ordering Provider Reason For Exam: ETT Technologist Note: Additional: COMPARISON: Chest x-ray 05/15/2025 TECHNIQUE: Frontal radiograph of the chest. FINDINGS/IMPRESSION: Support devices: *Endotracheal tube terminates in the distal thoracic trachea just above the heather. Review of subsequent chest x-ray demonstrates adjustment of the endotracheal tube. *Enteric tube courses below the diaphragm with tip outside the [id number]. *Unchanged wire-like density projecting over the right perihilar region. * Interval development of left lower lobe atelectasis. Similar mild pulmonary vascular congestion. There is no pleural effusion or pneumothorax. The cardiomediastinal silhouette is partially obscured. Report dictated by Kenrick Melton MD, (Instrument Technologist). > Dictated by Instrument Technologist I, Orin Oropeza MD have personally reviewed and interpreted this examination/study. > Interpreting Provider: Orin Oropeza MD on 05/18/2025 11:55 AM Procedure Note Orin Oropeza MD - 05/18/2025 PROCEDURE: XR CHEST 1VW PORTABLE, DATE/TIME OF EXAM: 05/17/2025 3:56 AM, LOCATION [facility] INDICATION: E87.1: Hyponatremia ADDITIONAL CLINICAL INFORMATION: Ordering Provider Reason For Exam: ETT Technologist Note: Additional: COMPARISON: Chest x-ray 05/15/2025 TECHNIQUE: Frontal radiograph of the chest. FINDINGS/IMPRESSION: Support devices: *Endotracheal tube terminates in the distal thoracic trachea just abovethe heather. Review of subsequent chest x-ray demonstrates adjustment of the endotracheal tube. *Enteric tube courses below the diaphragm with tip outside the [id number]. *Unchanged wire-like density projecting over the right perihilar region. * Interval development of left lower lobe atelectasis. Similar mildpulmonary vascular congestion. There is no pleural effusion or pneumothorax. The cardiomediastinal silhouette is partially obscured. Report dictated by Kenrick Melton MD, (Instrument Technologist). > Dictated by Instrument Technologist I, Orin Oropeza MD have personally reviewed and interpreted this examination/study. > Interpreting Provider: Orin Oropeza MD on 511:55 AM Linda Lezama MD DIAGNOSTIC IMAGING ORDERABLE S Final Result * OSMOLALITY URINE (05/17/2025 3:49 AM CDT) Osmolality Urine 302 50 - 1,200 mOsm/kg 05/17/2025 4:29 AM CDT [facility] Urine URINE SPECIMEN OBTAINED BY CLEAN CATCH PROCEDURE / Unknown 05/17/2025 3:49 AM CDT 05/17/2025 3:49 AM CDT Linda Lezama MD LAB - URINE CHEMISTRY ORDERA BLES Final Result [address] [address], [facility] [phone] * XR Abdomen Kub Portable (05/17/2025 3:47 AM CDT) Anatomical Region Laterality Modality Abdomen Digital Radiogra phy 05/17/2025 9:12 AM CDT Impressions 05/17/2025 9:12 AM CDT IMPRESSION: Enteric tube terminates in the gastric body. > Interpreting Provider: Felipe Munoz MD on 05/17/2025 9:12 AM Narrative 05/17/2025 9:12 AM CDT PROCEDURE: XR ABDOMEN KUB PORTABLE DATE/TIME OF EXAM: 05/17/2025 3:56 AM CLINICAL INFORMATION: None relevant/not provided if blank. Indication: E87.1: Hyponatremia Additional History: COMPARISON: None. Procedure Note Felipe Munoz MD - 05/17/2025 PROCEDURE: XR ABDOMEN KUB PORTABLE DATE/TIME OF EXAM: 05/17/2025 3:56 AM CLINICAL INFORMATION: None relevant/not provided if blank. Indication: E87.1: Hyponatremia Additional History: COMPARISON: None. IMPRESSION: Enteric tube terminates in the gastric body. > Interpreting Provider: Felipe Munoz MD on 05/17/2025 9:12 AM Linda Lezama MD DIAGNOSTIC IMAGING ORDERABLE S Final Result * (ABNORMAL) LACTIC ACID BLOOD (05/17/2025 3:11 AM CDT) Pathologist [facility] [place] Lactic Acid-Stat 2.1(H) <=2.0 mmol/L 05/17/2025 3:51 AM [facility] Blood BLOOD SPECIMEN / Unknown Venipuncture / Unknown 05/17/2025 3:11 AM CDT 05/17/2025 3:22 AM CDT Linda Lezama MD LAB - CHEMISTRY ORDERABLES F inal Result [address] [address], [facility] [phone] * (ABNORMAL) RENAL FUNCTION PANEL (05/17/2025 3:11 AM CDT) Pathologist [facility] [place] BUN 24 7 - 26 mg/dL 05/17/2025 4:05 AM [facility] Creatinine 1.27(H) 0.56 - 0.96 mg/dL 05/17/2025 4:05 AM [facility] Sodium 123(LL) 136 - 145 mmol/L 05/17/2025 4:05 AM [facility] Potassium 3.7 3.5 - 4.5 mmol/L 05/17/2025 4:05 AM [facility] Chloride 89(L) 98 - 107 mmol/L 05/17/2025 4:05 AM [facility] CO2 26 22 - 29 mmol/L 05/17/2025 4:05 AM [facility] Glucose 191(H) 70 - 99 mg/dL 05/17/2025 4:05 AM [facility] Albumin 2.7(L) 3.4 - 5.0 g/dL 05/17/2025 4:05 AM [facility] Calcium 8.3(L) 8.4 - 10.2 mg/dL 05/17/2025 4:05 AM [facility] Phosphorus 3.1 2.9 - 5.1 mg/dL 05/17/2025 4:05 AM [facility] Anion Gap 8 6 - 16 05/17/2025 4:05 AM [facility] BUN/Creatinine Ratio 19 7 - 23 05/17/2025 4:05 AM [facility] Osmolality Calculated 265(L) 275 - 295 mOsm/kg 05/17/2025 4:05 AM [facility] eGFR by CKD-EPI 48(L) >=90 mL/min/1.7 3 m2 05/17/2025 4:05 AM [facility] Comment:Estimated Glomerular Filtration Rate (eGFR) calculated using the CKD-EPI Creatinine Equation (2020), per the National Kidney Foundation and [place] [employer] recommendations. Blood BLOOD SPECIMEN / Unknown Venipuncture / Unknown 05/17/2025 3:11 AM CDT 05/17/2025 3:21 AM CDT Linda Lezama MD LAB - CHEMISTRY ORDERABLES F inal Result [facility] [address] [place] [address], [facility] [phone] * (ABNORMAL) SODIUM BLOOD (05/17/2025 3:11 AM CDT) Sodium 123(LL) 136 - 145 mmol/L 05/17/2025 4:05 AM [facility] Blood BLOOD SPECIMEN / Unknown Venipuncture / Unknown 05/17/2025 3:11 AM CDT 05/17/2025 3:21 AM CDT Linda Lezama MD LAB - CHEMISTRY ORDERABLES F inal Result Performing Organization Address [facility] Co de Phone Number [address] [address], [facility] [phone] * (ABNORMAL) OSMOLALITY BLOOD (05/17/2025 3:11 AM CDT) Osmolality 266(L) 275 - 295 mOsm/kg 05/17/2025 4:21 AM CDT [facility] Blood BLOOD SPECIMEN / Unknown Venipuncture / Unknown 05/17/2025 3:11 AM CDT 05/17/2025 3:21 AM CDT Linda Lezama MD LAB - CHEMISTRY ORDERABLES F inal Result Performing Organization Address [facility] de Phone Number [address] [address], [facility] [phone] * MAGNESIUM BLOOD (05/17/2025 3:11 AM CDT) Pathologist [facility] [place] Magnesium 1.9 1.6 - 2.6 mg/dL 05/17/2025 4:03 AM CDT [facility] Blood BLOOD SPECIMEN / Unknown Venipuncture / Unknown 05/17/2025 3:11 AM CDT 05/17/2025 3:21 AM CDT Adryan Shabazz MD LAB - CHEMISTRY ORDERABLES Final Result Performing Organization Address [facility] Co de Phone Number [address] [address], [facility] [phone] * (ABNORMAL) CBC W AUTO DIFFERENTIAL (05/17/2025 3:11 AM CDT) WBC 4.1 4.0 - 10.7 x10E9/L 05/17/2025 3:28 AM CDT [facility] RBC Count 3.99 3.90 - 5.20 x10E12/L 05/17/2025 3:28 AM CDT [facility] Hemoglobin 12.9 11.9 - 15.8 g/dL 05/17/2025 3:28 AM [facility] Hematocrit 37.7 34.8 - 46.1 % 05/17/2025 3:28 AM [facility] MCV 94.5 80.0 - 98.0 fL 05/17/2025 3:28 AM [facility] MCH 32.3 26.7 - 33.6 pg 05/17/2025 3:28 AM [facility] MCHC 34.2 31.7 - 36.3 g/dL 05/17/2025 3:28 AM [facility] RDW-CV 17.6(H) 11.3 - 14.8 % 05/17/2025 3:28 AM [facility] Platelet Count 173 150 - 420 x10E9/L 05/17/2025 3:28 AM [facility] MPV 9.8 7.8 - 11.4 fL 05/17/2025 3:28 AM [facility] Neutrophil % 74.7(H) 41.0 - 74.0 % 05/17/2025 3:28 AM [facility] Lymphocyte % 11.8(L) 17.0 - 47.0 % 05/17/2025 3:28 AM [facility] Monocyte % 10.6 3.0 - 11.0 % 05/17/2025 3:28 AM [facility] Eosinophil % 2.0 0.0 - 7.0 % 05/17/2025 3:28 AM [facility] Basophil % 0.7 0.0 - 1.6 % 05/17/2025 3:28 AM [facility] Immature Granulocytes % 0.2 0.0 - 1.0 % 05/17/2025 3:28 AM [facility] Neutrophil Absolute 3.04 1.60 - 7.50 x10E9/L 05/17/2025 3:28 AM [facility] Lymphocyte Absolute 0.48(L) 1.00 - 4.40 x10E9/L 05/17/2025 3:28 AM [facility] Monocyte Absolute 0.43 0.15 - 1.00 x10E9/L 05/17/2025 3:28 AM [facility] Eosinophil Absolute 0.08 0.00 - 0.60 x10E9/L 05/17/2025 3:28 AM CDT [facility] Basophil Absolute 0.03 0.00 - 0.13 x10E9/L 05/17/2025 3:28 AM CDT [facility] Blood BLOOD SPECIMEN / Unknown Venipuncture / Unknown 05/17/2025 3:11 AM CDT 05/17/2025 3:22 AM CDT us Carline Darby DO LAB - HEMATOLOGY ORDERABLES Ayanna l Result [address] [address], [facility] [phone] * (ABNORMAL) GLUCOSE - POINT OF CARE (05/17/2025 12:09 AM CDT) Glucose WB/POC 260(H) 70 - 99 mg/dL 05/17/2025 12:14 AM CDT [facility] Specimen Type Arterial/C apillary 05/17/2025 12:14 AM CDT [facility] Blood BLOOD SPECIMEN / Unknown 05/17/2025 12:09 AM CDT 05/17/2025 12:14 AM CDT us Linda Lezama MD LAB - POINT OF CARE ORDERABL ES Final Result [address] [address], [place] [phone] * (ABNORMAL) LACTIC ACID BLOOD (05/17/2025 12:05 AM CDT) Lactic Acid-Stat 2.3(H) <=2.0 mmol/L 05/17/2025 12:51 AM CDT [facility] Blood BLOOD SPECIMEN / Unknown Venipuncture / Unknown 05/17/2025 12:05 AM CDT 05/17/2025 12:23 AM CDT Linda Lezama MD LAB - CHEMISTRY ORDERABLES F inal Result [address] [address], [place] [phone] * MAGNESIUM BLOOD (05/16/2025 9:39 PM CDT) Magnesium 2.0 1.6 - 2.6 mg/dL 05/16/2025 10:34 PM [facility] Blood BLOOD SPECIMEN / Unknown Venipuncture / Unknown 05/16/2025 9:39 PM CDT 05/16/2025 9:47 PM CDT Adryan Shabazz MD LAB - CHEMISTRY ORDERABLES Final Result Performing Organization Address [facility]/ZIP Co de Phone Number [address] [address], [place] [phone] * (ABNORMAL) RENAL FUNCTION PANEL (05/16/2025 9:39 PM CDT) BUN 27(H) 7 - 26 mg/dL 05/16/2025 10:28 PM [facility] Creatinine 1.34(H) 0.56 - 0.96 mg/dL 05/16/2025 10:28 PM [facility] Sodium 121(LL) 136 - 145 mmol/L 05/16/2025 10:28 PM [facility] Potassium 4.6(H) 3.5 - 4.5 mmol/L 05/16/2025 10:28 PM [facility] Chloride 86(L) 98 - 107 mmol/L 05/16/2025 10:28 PM [facility] CO2 25 22 - 29 mmol/L 05/16/2025 10:28 PM [facility] Glucose 282(H) 70 - 99 mg/dL 05/16/2025 10:28 PM [facility] Albumin 3.0(L) 3.4 - 5.0 g/dL 05/16/2025 10:28 PM [facility] Calcium 8.9 8.4 - 10.2 mg/dL 05/16/2025 10:28 PM [facility] Phosphorus 3.6 2.9 - 5.1 mg/dL 05/16/2025 10:28 PM [facility] Anion Gap 10 6 - 16 05/16/2025 10:28 PM [facility] BUN/Creatinine Ratio 20 7 - 23 05/16/2025 10:28 PM [facility] Osmolality Calculated 267(L) 275 - 295 mOsm/kg 05/16/2025 10:28 PM [facility] eGFR by CKD-EPI 45(L) >=90 mL/min/1.7 3 m2 05/16/2025 10:28 PM [facility] Comment:Estimated Glomerular Filtration Rate (eGFR) calculated using the CKD-EPI Creatinine Equation (2020), per the National Kidney Foundation and [place] [employer] recommendations. Blood BLOOD SPECIMEN / Unknown Venipuncture / Unknown 05/16/2025 9:39 PM CDT 05/16/2025 9:47 PM CDT us Adryan Shabazz MD LAB - CHEMISTRY ORDERABLES Final Result [address] [address], [place] [phone] * (ABNORMAL) GLUCOSE - POINT OF CARE (05/16/2025 9:03 PM CDT) Glucose WB/POC 321(H) 70 - 99 mg/dL 05/16/2025 9:26 PM T [facility] Specimen Type Arterial/C apillary 05/16/2025 9:26 PM T [facility] Blood BLOOD SPECIMEN / Unknown 05/16/2025 9:03 PM CDT 05/16/2025 9:26 PM CDT us Linda Lezama MD LAB - POINT OF CARE ORDERABL ES Final Result [address] [address], [place] [phone] * MAGNESIUM BLOOD (05/16/2025 5:50 PM CDT) [facility] Magnesium 2.0 1.6 - 2.6 mg/dL 05/16/2025 6:52 PM CDT [facility] Blood BLOOD SPECIMEN / Unknown Lab Venipuncture / Unknown 05/16/2025 5:50 PM CDT 05/16/2025 6:35 PM CDT us Adryan Shabazz MD LAB - CHEMISTRY ORDERABLES Final Result [address] [address], [place] [phone] * (ABNORMAL) LACTIC ACID BLOOD (05/16/2025 5:50 PM CDT) [facility] Lactic Acid-Stat 3.5(HH) <=2.0 mmol/L 05/16/2025 6:54 PM CDT [facility] Blood BLOOD SPECIMEN / Unknown Lab Venipuncture / Unknown 05/16/2025 5:50 PM CDT 05/16/2025 6:08 PM CDT us Adryan Shabazz MD LAB - CHEMISTRY ORDERABLES Final Result [address] [address], [place] [phone] * (ABNORMAL) RENAL FUNCTION PANEL (05/16/2025 5:50 PM CDT) [facility] BUN 30(H) 7 - 26 mg/dL 05/16/2025 6:53 PM CDT [facility] Creatinine 1.36(H) 0.56 - 0.96 mg/dL 05/16/2025 6:53 PM CDT [facility] Sodium 121(LL) 136 - 145 mmol/L 05/16/2025 6:53 PM CDT [facility] Potassium 4.6(H) 3.5 - 4.5 mmol/L 05/16/2025 6:53 PM CDT [facility] Chloride 86(L) 98 - 107 mmol/L 05/16/2025 6:53 PM [facility] CO2 21(L) 22 - 29 mmol/L 05/16/2025 6:53 PM [facility] Glucose 182(H) 70 - 99 mg/dL 05/16/2025 6:53 PM [facility] Albumin 3.1(L) 3.4 - 5.0 g/dL 05/16/2025 6:53 PM [facility] Calcium 9.5 8.4 - 10.2 mg/dL 05/16/2025 6:53 PM [facility] Phosphorus 3.7 2.9 - 5.1 mg/dL 05/16/2025 6:53 PM [facility] Anion Gap 14 6 - 16 05/16/2025 6:53 PM [facility] BUN/Creatinine Ratio 22 7 - 23 05/16/2025 6:53 PM [facility] Osmolality Calculated 263(L) 275 - 295 mOsm/kg 05/16/2025 6:53 PM [facility] eGFR by CKD-EPI 44(L) >=90 mL/min/1.7 3 m2 05/16/2025 6:53 PM [facility] Comment:Estimated Glomerular Filtration Rate (eGFR) calculated using the CKD-EPI Creatinine Equation (2020), per the National Kidney Foundation and [place] [employer]ph[employer] recommendations. Blood BLOOD SPECIMEN / Unknown Lab Venipuncture / Unknown 05/16/2025 5:50 PM CDT 05/16/2025 6:35 PM CDT us Adryan Shabazz MD LAB - CHEMISTRY ORDERABLES Final Result [facility] [address] [place] [address], [facility] [phone] * (ABNORMAL) GLUCOSE - POINT OF CARE (05/16/2025 4:22 PM CDT) Glucose WB/POC 229(H) 70 - 99 mg/dL 05/16/2025 4:27 PM [facility] Specimen Type Arterial/C apillary 05/16/2025 4:27 PM CDT [facility] Blood BLOOD SPECIMEN / Unknown 05/16/2025 4:22 PM CDT 05/16/2025 4:27 PM CDT us Adryan Shabazz MD LAB - POINT OF CARE ORDERABLES F inal Result Performing Organization Address City/[facility]/ZIP Co de Phone Number [address] [address], [facility] [phone] * CARDIAC EKG ORDER (05/16/2025 12:07 PM CDT) Narrative 05/16/2025 12:07 PM CDT Ordered by an unspecified provider. Scanned Document CARDIAC SERVICES ORDERABLES Fin al Result * (ABNORMAL) GLUCOSE - POINT OF CARE (05/16/2025 11:53 AM CDT) Glucose WB/POC 144(H) 70 - 99 mg/dL 05/16/2025 11:59 AM CDT [facility] Specimen Type Arterial/C apillary 05/16/2025 11:59 AM CDT [facility] Blood BLOOD SPECIMEN / Unknown 05/16/2025 11:53 AM CDT 05/16/2025 11:59 AM CDT us Adryan Shabazz MD LAB - POINT OF CARE ORDERABLES F inal Result [address] [address], [place] [phone] * (ABNORMAL) LACTIC ACID BLOOD (05/16/2025 10:47 AM CDT) Lactic Acid-Stat 3.0(H) <=2.0 mmol/L 05/16/2025 11:33 AM CDT [facility] Blood BLOOD SPECIMEN / Unknown Lab Venipuncture / Unknown 05/16/2025 10:47 AM CDT 05/16/2025 11:03 AM CDT us Adryan Shabazz MD LAB - CHEMISTRY ORDERABLES Final Result [facility] [address] [place] [address], [facility] [phone] * (ABNORMAL) BASIC METABOLIC PANEL (CALCIUM TOTAL) (05/16/2025 10:47 AM CDT) BUN 29(H) 7 - 26 mg/dL 05/16/2025 11:45 AM [facility] Creatinine 1.39(H) 0.56 - 0.96 mg/dL 05/16/2025 11:45 AM [facility] Sodium 123(LL) 136 - 145 mmol/L 05/16/2025 11:45 AM [facility] Potassium 5.3(H) 3.5 - 4.5 mmol/L 05/16/2025 11:45 AM [facility] Chloride 87(L) 98 - 107 mmol/L 05/16/2025 11:45 AM [facility] CO2 25 22 - 29 mmol/L 05/16/2025 11:45 AM [facility] Glucose 113(H) 70 - 99 mg/dL 05/16/2025 11:45 AM [facility] Calcium 9.7 8.4 - 10.2 mg/dL 05/16/2025 11:45 AM [facility] Anion Gap 11 6 - 16 05/16/2025 11:45 AM [facility] BUN/Creatinine Ratio 21 7 - 23 05/16/2025 11:45 AM [facility] Osmolality Calculated 263(L) 275 - 295 mOsm/kg 05/16/2025 11:45 AM [facility] eGFR by CKD-EPI 43(L) >=90 mL/min/1.7 3 m2 05/16/2025 11:45 AM [facility] Comment:Estimated Glomerular Filtration Rate (eGFR) calculated using the CKD-EPI Creatinine Equation (2020), per the [employer] Kidney Foundation and [place] [employer]ph[employer] recommendations. Blood BLOOD SPECIMEN / Unknown Lab Venipuncture / Unknown 05/16/2025 10:47 AM CDT 05/16/2025 11:03 AM CDT Adryan Shabazz MD LAB - CHEMISTRY ORDERABLES Final Result [address] [address], [place] [phone] * (ABNORMAL) POTASSIUM BLOOD (05/16/2025 10:47 AM CDT) Potassium 5.3(H) 3.5 - 4.5 mmol/L 05/16/2025 11:44 AM CDT [facility] Blood BLOOD SPECIMEN / Unknown Lab Venipuncture / Unknown 05/16/2025 10:47 AM CDT 05/16/2025 11:03 AM CDT us Dionne Benitez MD LAB - CHEMISTRY ORDERAB LES Final Result Performing Organization Address City/[facility]/ZIP Co de Phone Number [address] [address], [place] [phone] * (ABNORMAL) GLUCOSE - POINT OF CARE (05/16/2025 10:21 AM CDT) Glucose WB/POC 135(H) 70 - 99 mg/dL 05/16/2025 10:27 AM CDT [facility] Specimen Type Arterial/C apillary 05/16/2025 10:27 AM CDT [facility] Blood BLOOD SPECIMEN / Unknown 05/16/2025 10:21 AM CDT 05/16/2025 10:27 AM CDT us Aleja Gonzalez DO LAB - POINT OF CARE ORDERABL ES Final Result [address] [address], [place] [phone] * (ABNORMAL) GLUCOSE - POINT OF CARE (05/16/2025 9:46 AM CDT) Glucose WB/POC 146(H) 70 - 99 mg/dL 05/16/2025 9:50 AM CDT [facility] Specimen Type Arterial/C apillary 05/16/2025 9:50 AM CDT [facility] Blood BLOOD SPECIMEN / Unknown 05/16/2025 9:46 AM CDT 05/16/2025 9:50 AM CDT [facility] DO LAB - POINT OF CARE ORDERABL ES Final Result Performing Organization Address [facility]/ZIP Co de Phone Number [address] [address], [place] [phone] * (ABNORMAL) GLUCOSE - POINT OF CARE (05/16/2025 9:23 AM CDT) Glucose WB/POC 189(H) 70 - 99 mg/dL 05/16/2025 9:28 AM CDT [facility] Specimen Type Arterial/C apillary 05/16/2025 9:28 AM CDT [facility] Blood BLOOD SPECIMEN / Unknown 05/16/2025 9:23 AM CDT 05/16/2025 9:28 AM CDT [facility] LAB - POINT OF CARE ORDERABL ES Final Result Performing Organization Address [facility]/ZIP Co de Phone Number [address] [address], [place] [phone] * (ABNORMAL) GLUCOSE - POINT OF CARE (05/16/2025 9:10 AM CDT) Glucose WB/POC 207(H) 70 - 99 mg/dL 05/16/2025 9:15 AM CDT [facility] Specimen Type Arterial/C apillary 05/16/2025 9:15 AM CDT [facility] Blood BLOOD SPECIMEN / Unknown 05/16/2025 9:10 AM CDT 05/16/2025 9:15 AM CDT [facility] [place] DO LAB - POINT OF CARE ORDERABL ES Final Result [facility] [address] [place] [id number], [facility] [phone] * ECHO COMPLETE W CONTRAST (05/16/2025 9:06 AM CDT) IVSd 2D 0.79 cm SSM CV FUJ I PACS LVIDd 6.275 cm SSM CV FUJ I PACS LVIDs 5.491 cm SSM CV FUJ I PACS LVOT diam 2.048 cm SSM CV FUJ I PACS LVPWd 0.751 cm SSM CV FUJ I PACS LV biplane EF 22.999 % SSM CV FUJI PACS LV A2C EF 30.871 % SSM CV FUJ I PACS LV A4C EF 15.112 % SSM CV FUJ I PACS LV EDV A2C 189.547 ml SSM CV FU JI PACS LV EDV A4C 138.839 ml SSM CV FU JI PACS LV ESV A2C 131.032 ml SSM CV FU JI PACS LV ESV A4C 117.858 ml SSM CV FU JI PACS LVOT pk grad 2.368 mmHg SSM CV FUJI PACS LVOT pk ramón 76.934 cm/s SSM CV F UJI PACS LVOT VTI 14.32 cm SSM CV FUJ I PACS RV-mark basal diam 4.057 cm SSM CV FUJI PACS RVIDd 4.18 cm SSM CV FUJ I PACS LA size 5.811 cm SSM CV FUJ I PACS LA vol BP 106.89 ml SSM CV FUJ I PACS RA area 33.369 cm SSM CV FUJI PACS AV area pk ramón 3.685 cm SSM CV FUJI PACS AV area cont VTI 3.908 cm SSM CV FUJI PACS AV pk grad 1.632 mmHg SSM CV FU JI PACS AV mn grad 1.049 mmHg SSM CV FU JI PACS AV pk ramón 68.758 cm/s SSM CV FUJ I PACS AV VTI 12.068 cm SSM CV FUJ I PACS MV A pk ramón 18.703 cm/s SSM CV F UJI PACS MV E pk ramón 65.715 cm/s SSM CV F UJI PACS MV E' lateral ramón 3.661 cm/s SS M CV FUJI PACS MV mn grad 1.518 mmHg SSM CV FU JI PACS MV VTI 15.042 cm SSM CV FUJ I PACS MV pk ramón regurg 358.163 cm/s SSM CV FUJI PACS MR VTI 117.167 cm SSM CV FUJ I PACS PV pk ramón 71.637 cm/s SSM CV FUJ I PACS PV VTI 12.954 cm SSM CV FUJ I PACS TAPSE 1.164 cm SSM CV FUJ I PACS TR pk ramón 225.158 cm/s SSM CV FUJ I PACS Ascending aorta 3.58 cm SSM CV FUJI PACS IVC Diam Expiration 3.441 cm SSM CV FUJI PACS AV area index 1.606 cm /m SSM CV FUJI PACS LA vol index 0.044 l/m SSM CV FUJI PACS Dimensionless Index 1.187 unitless SSM CV FUJI PACS Myocardial strain charge 2 unitless SSM CV FUJI PACS Anatomical Region Laterality Modality Ultrasound 05/16/2025 7:08 AM CDT Narrative 05/16/2025 11:40 AM CDT Summary * The left ventricle is moderately dilated with severely reduced systolic function and an estimated ejection fraction of 20-25% by visual estimate. Left ventricular wall motion is globally hypokinetic with regional variations. * Flattening of the septum in systole consistent with right ventricular pressure overload. * Right ventricle is moderately-severely dilated with moderately reduced systolic function. * Prominent moderator band and trabeculae represent sequela of pulmonary hypertension. * There is severe mitral valve regurgitation. * There is severe functional tricuspid valve regurgitation. * The pulmonary artery systolic pressure is at least mildly elevated, 35 mmHg. * The pulmonary artery systolic pressure is underestimated due to the severity of tricuspid regurgitation. * There is a small posterior pericardial effusion. Patient Info Name: Loretta Penn Age: 64 years : 1960 Gender: Female Ht: 66 in Wt: 266 lb BSA: 2.43 m2 HR: 89 bpm BP: 105 / 62 mmHg Heart Rhythm: Sinus Arrhythmia Exam Date: 05/16/2025 7:08 AM Patient Status: I/P Study Site: [facility] Primary Location: [facility] Info Technical Quality: Adequate Exam Type: ECHO COMPLETE W CONTRAST Indications I50.9 - Acute on chronic congestive heart failure, unspecified heart failure type (HCC) Procedure(s) * A complete 2D, spectral Doppler, M-Mode and color Doppler transthoracic echocardiogram was performed with an Ultrasound Enhancing Agent (UEA). Contrast/Agitated Saline Contrast / Saline: Definity Amount: 0.50 ml Reaction to Contrast: no Staff Referring Physician: Carline Darby Ordering Provider: Carline Darby Attending Physician: Carline Darby Fellow: Do Wasserman Account Services Associate: Albert Parks Left Ventricle The left ventricle is moderately dilated. Left ventricular systolic function is severely reduced with an estimated ejection fraction of 20-25% by visual estimate. There is normal left ventricular wall thickness. The left ventricular mass is normal. Left ventricular segmental wall motion is globally hypokinetic. The left ventricular diastolic function is abnormal. Flattening of the septum in systole consistent with right ventricular pressure overload. Right Ventricle The right ventricle is moderately-severely dilated. Right ventricular systolic function is moderately reduced. Prominent moderator band and trabeculae represent sequela of pulmonary hypertension. Ventricular Septum Intact interventricular septum visualized by 2D and color Doppler imaging. Left Atrium The left atrium is dilated with a left atrial volume index of 44 ml/m2 by BP MOD. Right Atrium The right atrium is severely dilated. Atrial Septum Intact interatrial septum visualized by 2D and color Doppler imaging. Aortic Valve The aortic valve is not well visualized, but grossly normal and trileaflet. There is no aortic valve stenosis. There is no significant aortic valve regurgitation. Pulmonic Valve The pulmonic valve is not well visualized, but grossly normal. There is no clinically significant pulmonic valve stenosis. There is no significant pulmonic regurgitation. Mitral Valve The mitral valve is not well visualized, but grossly normal. There is no clinically significant mitral valve stenosis. There is severe mitral valve regurgitation. Tricuspid Valve The tricuspid valve is not well visualized, but grossly normal. There is no significant tricuspid valve stenosis. There is severe functional tricuspid valve regurgitation. The pulmonary artery systolic pressure is at least mildly elevated, 35 mmHg. The pulmonary artery systolic pressure is underestimated due to the severity of tricuspid regurgitation. Inferior Vena Cava The inferior vena cava is dilated (> 2.1 cm). There is < 50% collapse of the IVC upon inspiration with an estimated right atrial pressure of 15 mmHg. Pericardium/Pleural There is a small posterior pericardial effusion. Aorta The aortic root at the sinus of Valsalva is not well visualized. The ascending aorta is dilated. Measurements Left Ventricular Outflow Tract Name Value Normal LVOT 2D LVOT Diameter 2.0 cm LVOT Area 3.3 cm2 LVOT Doppler LVOT Peak Velocity 0.8 m/s LVOT Peak Gradient 2 mmHg LVOT Mean Velocity 55.74 cm/s LVOT Mean Gradient 1 mmHg LVOT VTI 14.3 cm LVOT VTI/AV VTI Ratio 1.2 LVOT Stroke Volume 47 ml LVOT Stroke Volume Index 19 ml/m2 35-58 LVOT CO 4.2 l/min LVOT CI 1.7 l/min/m2 Pulmonic Valve Name Value Normal PV Doppler PV Peak Velocity 0.7 m/s PV Peak Gradient 2 mmHg PV Mean Gradient 1 mmHg PV Accel Time 76.12 ms Mitral Valve Name Value Normal MV Doppler MV Peak Gradient 4 mmHg MV Mean Gradient 2 mmHg MV DI (VTI) 1.05 MV Area (Cont Eq VTI) 3.13 cm2 MV Diastolic Function MV E Peak Velocity 0.7 m/sec MV A Peak Velocity 0.2 m/sec MV E/A 3.5 MV Decel Time (PW) 142 ms MV Annular TDI MV Septal e' Velocity 4 cm/s >=8 MV E/e' (Septal) 18 <=8 MV Lateral e' Velocity 4 cm/s >=10 MV E/e' (Lateral) 18 <=8 MV e' Average 4 cm/s MV E/e' (Average) 18 Tricuspid Valve Name Value Normal TV 2D TV Annulus Diameter (4C) 4.1 cm TV Regurgitation Doppler TR Peak Velocity 2.3 m/s TR Peak Gradient 20 mmHg TR ERO (PISA) 0.92 cm2 TR Volume (PISA) 61 ml Estimated PAP/RSVP RA Pressure 15 mmHg <=5 PA Systolic Pressure 35 mmHg <35 RV Systolic Pressure 35 mmHg <36 TV Annular TDI TV Lateral Dinorah s' Velocity 6 cm/s 10-19 Aorta Name Value Normal Ascending Aorta Asc Ao Diameter 3.6 cm 1.9-3.5 Asc Ao Diameter Index 1.5 cm/m2 1.0-2.2 Venous Name Value Normal IVC/SVC IVC Diameter 3.4 cm <=2.1 Aortic Valve Name Value Normal AV Doppler AV Peak Velocity 0.69 m/s AV Peak Gradient 2 mmHg AV Mean Gradient 1 mmHg AV VTI 12 cm AV Area (Cont Eq VTI) 3.91 cm2 >=2.00 AV Area (Cont Eq Ramón) 3.68 cm2 AV DI (VTI) 1.19 AV DI (Ramón) 1.12 AV Regurgitation 2D LVOT Area 3.29 cm2 Ventricles Name Value Normal LV Dimensions 2D/MM IVS Diastolic Thickness (2D) 0.8 cm 0.6-0.9 LVID Diastole (2D) 6.3 cm 3.8-5.2 LVPW Diastolic Thickness (2D) 0.8 cm 0.6-0.9 IVS Systolic Thickness (2D) 0.9 cm LVID Systole (2D) 5.5 cm 2.2-3.5 LVPW Systolic Thickness (2D) 1.0 cm LV Mass (2D Cubed) 203 g 67-162 LV Mass Index (2D Cubed) 83 g/m2 43-95 Relative Wall Thickness (2D) 0.24 <=0.42 LV Fractional Shortening/Ejection Fraction 2D/MM LV Fractional Shortening (2D) 12 % 27-45 LV EF (2D Teicholz) 26 % 54-74 LV Diastolic Volume (4C MOD) 139 ml LV EF (4C MOD) 15 % LV Diastolic Volume (2C MOD) 190 ml LV EF (2C MOD) 31 % LV Diastolic Volume (BP MOD) 175 ml 46-106 LV Diastolic Volume Index (BP MOD) 72 ml/m2 29-61 LV Systolic Volume (BP MOD) 134 ml 14-42 LV Systolic Volume Index (BP MOD) 55 ml/m2 8-24 LV EF (BP MOD) 23 % 54-74 LV Diastolic Length (4C) 8.3 cm LV Systolic Length (4C) 7.6 cm LV Stroke Volume (4C MOD) 21 ml RV Dimensions 2D/MM RVID Diastole (2D) 4.2 cm 2.5-3.5 RVID Systole (2D) 3.5 cm RV Basal Diastolic Dimension 4.1 cm 2.5-4.1 RV Diastolic Length (4C) 7.5 cm 5.9-8.3 TAPSE 1.2 cm >=1.7 Atria Name Value Normal LA Dimensions LA Dimension (2D) 5.8 cm 2.7-3.8 LA Dimen Index (2D) 2.4 cm/m2 LA Volume (BP MOD) 107 ml LA Volume Index (BP MOD) 44 ml/m2 16-34 RA Dimensions RA Area (4C) 33 cm2 <=18 RA Area (4C) Index 14 cm2/m2 Report Signatures Finalized by Jefry Arizmendi on 05/16/2025 11:39 AM Reviewed by Fellow Do Wasserman on 05/16/2025 09:27 AM Procedure Note Jefry Arizmendi MD - 05/16/2025 Summary * The left ventricle is moderately dilated with severely reducedsystolic function and an estimated ejection fraction of 20-25% by visual estimate.Left ventricular wall motion is globally hypokinetic with regionalvariations. * Flattening of the septum in systole consistent with rightventricular pressure overload. * Right ventricle is moderately-severely dilated with moderatelyreduced systolic function. * Prominent moderator band and trabeculae represent sequela ofpulmonary hypertension. * There is severe mitral valve regurgitation. * There is severe functional tricuspid valve regurgitation. * The pulmonary artery systolic pressure is at least mildly elevated,35 mmHg. * The pulmonary artery systolic pressure is underestimated due to the severity of tricuspid regurgitation. * There is a small posterior pericardial effusion. Patient Info Name: Loretta Penn Age: 64 years : 1960 Gender: Female Ht: 66 in Wt: 266 lb BSA: 2.43 m2 HR: 89 bpm BP: 105 / 62 mmHg Heart Rhythm: Sinus Arrhythmia Exam Date: 05/16/2025 7:08 AM Patient Status: I/P Study Site: [facility] Primary Location: [facility] EStudy Info Technical Quality: Adequate Exam Type: ECHO COMPLETE W CONTRAST Indications I50.9 - Acute on chronic congestive heart failure, unspecifiedheart failure type (HCC) Procedure(s) * A complete 2D, spectral Doppler, M-Mode and color Dopplertransthoracic echocardiogram was performed with an Ultrasound Enhancing Agent (UEA). Contrast/Agitated Saline Contrast / Saline: Definity Amount: 0.50 ml Reaction to Contrast: no Staff Referring Physician: Carline Darby Ordering Provider: Carline Dabry Attending Physician: Carline Darby Fellow: Do Wasserman Account Services Associate: Albert Parks Left Ventricle The left ventricle is moderately dilated. Left ventricular systolicfunction is severely reduced with an estimated ejection fraction of 20-25% byvisual estimate. There is normal left ventricular wall thickness. The left ventricular mass is normal. Left ventricular segmental wall motion isglobally hypokinetic. The left ventricular diastolic function is abnormal.Flattening of the septum in systole consistent with right ventricular pressureoverload. Right Ventricle The right ventricle is moderately-severely dilated. Right ventricular systolic function is moderately reduced. Prominent moderator band and trabeculae represent sequela of pulmonary hypertension. Ventricular Septum Intact interventricular septum visualized by 2D and color Dopplerimaging. Left Atrium The left atrium is dilated with a left atrial volume index of 44 ml/m2by BP MOD. Right Atrium The right atrium is severely dilated. Atrial Septum Intact interatrial septum visualized by 2D and color Doppler imaging. Aortic Valve The aortic valve is not well visualized, but grossly normal andtrileaflet. There is no aortic valve stenosis. There is no significant aortic valve regurgitation. Pulmonic Valve The pulmonic valve is not well visualized, but grossly normal. There isno clinically significant pulmonic valve stenosis. There is no significant pulmonic regurgitation. Mitral Valve The mitral valve is not well visualized, but grossly normal. There isno clinically significant mitral valve stenosis. There is severe mitralvalve regurgitation. Tricuspid Valve The tricuspid valve is not well visualized, but grossly normal. There isno significant tricuspid valve stenosis. There is severe functionaltricuspid valve regurgitation. The pulmonary artery systolic pressure is at leastmildly elevated, 35 mmHg. The pulmonary artery systolic pressure isunderestimated due to the severity of tricuspid regurgitation. Inferior Vena Cava The inferior vena cava is dilated (> 2.1 cm). There is < 50% collapse ofthe IVC upon inspiration with an estimated right atrial pressure of 15 mmHg. Pericardium/Pleural There is a small posterior pericardial effusion. Aorta The aortic root at the sinus of Valsalva is not well visualized. The ascending aorta is dilated. Measurements Left Ventricular Outflow Tract Name Value Normal LVOT 2D LVOT Diameter 2.0 cm LVOT Area 3.3 cm2 LVOT Doppler LVOT Peak Velocity 0.8 m/s LVOT Peak Gradient 2 mmHg LVOT Mean Velocity 55.74 cm/s LVOT Mean Gradient 1 mmHg LVOT VTI 14.3 cm LVOT VTI/AV VTI Ratio 1.2 LVOT Stroke Volume 47 ml LVOT Stroke Volume Index 19 ml/m2 35-58 LVOT CO 4.2 l/min LVOT CI 1.7 l/min/m2 Pulmonic Valve Name Value Normal PV Doppler PV Peak Velocity 0.7 m/s PV Peak Gradient 2 mmHg PV Mean Gradient 1 mmHg PV Accel Time 76.12 ms Mitral Valve Name Value Normal MV Doppler MV Peak Gradient 4 mmHg MV Mean Gradient 2 mmHg MV DI (VTI) 1.05 MV Area (Cont Eq VTI) 3.13 cm2 MV Diastolic Function MV E Peak Velocity 0.7 m/sec MV A Peak Velocity 0.2 m/sec MV E/A 3.5 MV Decel Time (PW) 142 ms MV Annular TDI MV Septal e' Velocity 4 cm/s >=8 MV E/e' (Septal) 18 <=8 MV Lateral e' Velocity 4 cm/s >=10 MV E/e' (Lateral) 18 <=8 MV e' Average 4 cm/s MV E/e' (Average) 18 Tricuspid Valve Name Value Normal TV 2D TV Annulus Diameter (4C) 4.1 cm TV Regurgitation Doppler TR Peak Velocity 2.3 m/s TR Peak Gradient 20 mmHg TR ERO (PISA) 0.92 cm2 TR Volume (PISA) 61 ml Estimated PAP/RSVP RA Pressure 15 mmHg <=5 PA Systolic Pressure 35 mmHg <35 RV Systolic Pressure 35 mmHg <36 TV Annular TDI TV Lateral Dinorah s' Velocity 6 cm/s 10-19 Aorta Name Value Normal Ascending Aorta Asc Ao Diameter 3.6 cm 1.9-3.5 Asc Ao Diameter Index 1.5 cm/m2 1.0-2.2 Venous Name Value Normal IVC/SVC IVC Diameter 3.4 cm <=2.1 Aortic Valve Name Value Normal AV Doppler AV Peak Velocity 0.69 m/s AV Peak Gradient 2 mmHg AV Mean Gradient 1 mmHg AV VTI 12 cm AV Area (Cont Eq VTI) 3.91 cm2 >=2.00 AV Area (Cont Eq Ramón) 3.68 cm2 AV DI (VTI) 1.19 AV DI (Ramón) 1.12 AV Regurgitation 2D LVOT Area 3.29 cm2 Ventricles Name Value Normal LV Dimensions 2D/MM IVS Diastolic Thickness (2D) 0.8 cm 0.6-0.9 LVID Diastole (2D) 6.3 cm 3.8-5.2 LVPW Diastolic Thickness (2D) 0.8 cm 0.6-0.9 IVS Systolic Thickness (2D) 0.9 cm LVID Systole (2D) 5.5 cm 2.2-3.5 LVPW Systolic Thickness (2D) 1.0 cm LV Mass (2D Cubed) 203 g 67-162 LV Mass Index (2D Cubed) 83 g/m2 43-95 Relative Wall Thickness (2D) 0.24 <=0.42 LV Fractional Shortening/Ejection Fraction 2D/MM LV Fractional Shortening (2D) 12 % 27-45 LV EF (2D Teicholz) 26 % 54-74 LV Diastolic Volume (4C MOD) 139 ml LV EF (4C MOD) 15 % LV Diastolic Volume (2C MOD) 190 ml LV EF (2C MOD) 31 % LV Diastolic Volume (BP MOD) 175 ml 46-106 LV Diastolic Volume Index (BP MOD) 72 ml/m2 29-61 LV Systolic Volume (BP MOD) 134 ml 14-42 LV Systolic Volume Index (BP MOD) 55 ml/m2 8-24 LV EF (BP MOD) 23 % 54-74 LV Diastolic Length (4C) 8.3 cm LV Systolic Length (4C) 7.6 cm LV Stroke Volume (4C MOD) 21 ml RV Dimensions 2D/MM RVID Diastole (2D) 4.2 cm 2.5-3.5 RVID Systole (2D) 3.5 cm RV Basal Diastolic Dimension 4.1 cm 2.5-4.1 RV Diastolic Length (4C) 7.5 cm 5.9-8.3 TAPSE 1.2 cm >=1.7 Atria Name Value Normal LA Dimensions LA Dimension (2D) 5.8 cm 2.7-3.8 LA Dimen Index (2D) 2.4 cm/m2 LA Volume (BP MOD) 107 ml LA Volume Index (BP MOD) 44 ml/m2 16-34 RA Dimensions RA Area (4C) 33 cm2 <=18 RA Area (4C) Index 14 cm2/m2 Report Signatures Finalized by Jefry Arizmendi on 05/16/2025 11:39 AM Reviewed by Severo Brown on 05/16/2025 09:27 AM us Carline Darby DO ECHO CUPID Final Result * (ABNORMAL) RENAL FUNCTION PANEL (05/16/2025 8:27 AM T) BUN 27(H) 7 - 26 mg/dL 05/16/2025 9:32 AM [facility] Creatinine 1.44(H) 0.56 - 0.96 mg/dL 05/16/2025 9:32 AM [facility] Sodium 121(LL) 136 - 145 mmol/L 05/16/2025 9:32 AM [facility] Potassium 4.3 3.5 - 4.5 mmol/L 05/16/2025 9:32 AM [facility] Chloride 89(L) 98 - 107 mmol/L 05/16/2025 9:32 AM [facility] CO2 25 22 - 29 mmol/L 05/16/2025 9:32 AM [facility] Glucose 66(L) 70 - 99 mg/dL 05/16/2025 9:32 AM [facility] Albumin 2.9(L) 3.4 - 5.0 g/dL 05/16/2025 9:32 AM [facility] Calcium 9.3 8.4 - 10.2 mg/dL 05/16/2025 9:32 AM [facility] Phosphorus 4.0 2.9 - 5.1 mg/dL 05/16/2025 9:32 AM [facility] Anion Gap 7 6 - 16 05/16/2025 9:32 AM [facility] BUN/Creatinine Ratio 19 7 - 23 05/16/2025 9:32 AM [facility] Osmolality Calculated 255(L) 275 - 295 mOsm/kg 05/16/2025 9:32 AM [facility] eGFR by CKD-EPI 41(L) >=90 mL/min/1.7 3 m2 05/16/2025 9:32 AM [facility] Comment:Estimated Glomerular Filtration Rate (eGFR) calculated using the CKD-EPI Creatinine Equation (2020), per the National Kidney Foundation and [place] [employer]ph[employer] recommendations. Blood BLOOD SPECIMEN / Unknown Lab Venipuncture / Unknown 05/16/2025 8:27 AM CDT 05/16/2025 9:03 AM CDT Adryan Shabazz MD LAB - CHEMISTRY ORDERABLES Final Result [address] [address], [facility] [phone] * POTASSIUM BLOOD (05/16/2025 8:27 AM CDT) Potassium 4.3 3.5 - 4.5 mmol/L 05/16/2025 9:32 AM T [facility] Blood BLOOD SPECIMEN / Unknown Lab Venipuncture / Unknown 05/16/2025 8:27 AM CDT 05/16/2025 9:03 AM CDT us Dionne Benitez MD LAB - CHEMISTRY ORDERAB LES Final Result [address] [address], [place] [phone] * (ABNORMAL) GLUCOSE - POINT OF CARE (05/16/2025 7:15 AM CDT) Glucose WB/POC 107(H) 70 - 99 mg/dL 05/16/2025 7:15 AM CDT [facility] Specimen Type Arterial/C apillary 05/16/2025 7:15 AM CDT [facility] Blood BLOOD SPECIMEN / Unknown 05/16/2025 7:15 AM CDT 05/16/2025 7:15 AM CDT [facility] LAB - POINT OF CARE ORDERABL ES Final Result [address] [address], [facility] [phone] * (ABNORMAL) GLUCOSE - POINT OF CARE (05/16/2025 6:45 AM CDT) Glucose WB/POC 66(L) 70 - 99 mg/dL 05/16/2025 11:45 AM CDT [facility] Specimen Type Arterial/C apillary 05/16/2025 11:45 AM CDT [facility] Blood BLOOD SPECIMEN / Unknown 05/16/2025 6:45 AM CDT 05/16/2025 11:45 AM CDT [facility] LAB - POINT OF CARE ORDERABL ES Final Result [address] [address], [place] [phone] * (ABNORMAL) POTASSIUM BLOOD (05/16/2025 6:32 AM CDT) Potassium 4.7(H) 3.5 - 4.5 mmol/L 05/16/2025 7:20 AM CDT [facility] Blood BLOOD SPECIMEN / Unknown Lab Venipuncture / Unknown 05/16/2025 6:32 AM CDT 05/16/2025 6:55 AM CDT Dionne Benitez MD LAB - CHEMISTRY ORDERAB LES Final Result Performing Organization Address City/[facility]/ZIP Co de Phone Number [address] [address], [facility] [phone] * (ABNORMAL) HEMOGLOBIN A1C (05/16/2025 6:32 AM CDT) Hemoglobin A1c 7.2(H) <=5.6 % 05/16/2025 8:36 AM CDT [facility] Estimated Average Glucose 160 mg/dL 05/16/2025 8:36 AM CDT [facility] Comment: HbA1c Interpretation: Normal : < 5.7% Pre-diabetes: 5.7-6.4% Diabetes: Equal to or greater than 6.5% Test results diagnostic of diabetes should be repeated for confirmation. Treatment target values recommended by ADA and other clinical organizations should be used to evaluate metabolic control in patients. Reference: [place] [employer], Standards of Care in Diabetes -2020 In patients 70 years and older consider HbA1c target range of 7.0-7.5% (Reference: Garcia Arevalo et al. JAMDA. 2012) The Sebia assay for the measurement of HbA1c is a National Glycohemoglobin Standardization Program (NGSP) certified method. Blood BLOOD SPECIMEN / Unknown Lab Venipuncture / Unknown 05/16/2025 6:32 AM CDT 05/16/2025 6:55 AM CDT us Carline Darby DO LAB - CHEMISTRY ORDERABLES Final Result [address] [address], [place] [phone] * (ABNORMAL) GLUCOSE - POINT OF CARE (05/16/2025 5:25 AM CDT) Glucose WB/POC 111(H) 70 - 99 mg/dL 05/16/2025 5:29 AM CDT [facility] Specimen Type Arterial/C apillary 05/16/2025 5:29 AM CDT [facility] Blood BLOOD SPECIMEN / Unknown 05/16/2025 5:25 AM CDT 05/16/2025 5:29 AM CDT [facility] LAB - POINT OF CARE ORDERABL ES Final Result Performing Organization Address [facility]/ZIP Co de Phone Number [address] [address], [place] [phone] * GLUCOSE - POINT OF CARE (05/16/2025 4:57 AM CDT) Glucose WB/POC 83 70 - 99 mg/dL 05/16/2025 4:58 AM CDT [facility] Specimen Type Arterial/C apillary 05/16/2025 4:58 AM CDT [facility] Blood BLOOD SPECIMEN / Unknown 05/16/2025 4:57 AM CDT 05/16/2025 4:58 AM CDT [facility] LAB - POINT OF CARE ORDERABL ES Final Result Performing Organization Address [facility] de Phone Number [address] [address], [place] [phone] * EKG 12-LEAD (05/16/2025 4:07 AM CDT) Pathologist [facility] [place] Ventricular Rate 79 BPM [facility] QRS Duration ms 102 ms [facility] M[facility] Q-T Interval ms 434 ms [facility] QTC Calculation (Bezet) 497 ms [facility] M[facility] Calculated R Duvall 123 degrees SL MUSE Calculated T Duvall -118 degrees [facility] MUSE Interpretation EKG ATRIAL FIBRILLATION LOW VOLTAGE QRS ANTEROLATERAL INFARCT , AGE UNDETERMINED ABNORMAL ECG WHEN COMPARED WITH ECG OF 15-MAY-2025 14:20, QRS DURATION HAS DECREASED Confirmed by DAREK PARADA MD ([id number]) on 05/21/2025 8:35:06 AM [facility] MUSE 05/16/2025 4:07 AM CDT 05/21/2025 8:35 AM CDT Dionne Benitez MD ECG ORDERABLES Edited Result - Final Performing Organization Address [facility] Co de Phone Number [facility] * (ABNORMAL) GLUCOSE - POINT OF CARE (05/16/2025 4:00 AM CDT) Glucose WB/POC 179(H) 70 - 99 mg/dL 05/16/2025 4:05 AM CDT [facility] Specimen Type Arterial/C apillary 05/16/2025 4:05 AM CDT [facility] Blood BLOOD SPECIMEN / Unknown 05/16/2025 4:00 AM CDT 05/16/2025 4:05 AM CDT us Aleja Gonzalez DO LAB - POINT OF CARE ORDERABL ES Final Result Performing Organization Address [facility] Co de Phone Number [address] [address], [facility] [phone] * UREA NITROGEN URINE RANDOM (05/16/2025 12:17 AM CDT) Urea Nitrogen Random Urine 193 Not Established mg/dL 05/16/2025 12:46 AM CDT [facility] Urine URINE SPECIMEN OBTAINED BY CLEAN CATCH PROCEDURE / Unknown Collection / Unknown 05/16/2025 12:17 AM CDT 05/16/2025 12:23 AM CDT us Carline Darby DO LAB - URINE CHEMISTRY ORDERABLES Final Result Performing Organization Address [facility] Co de Phone Number [address] [address], [place] [phone] * CREATININE URINE RANDOM (05/16/2025 12:17 AM CDT) Creatinine Urine 23.02 Not Established mg/dL 05/16/2025 12:46 AM CDT [facility] Urine URINE SPECIMEN OBTAINED BY CLEAN CATCH PROCEDURE / Unknown Collection / Unknown 05/16/2025 12:17 AM CDT 05/16/2025 12:23 AM CDT us Crowley Darby DO LAB - URINE CHEMISTRY ORDERABLES Final Result Performing Organization Address [facility]/ZIP Co de Phone Number [address] [address], [facility] [phone] * OSMOLALITY URINE (05/16/2025 12:17 AM CDT) Osmolality Urine 343 50 - 1,200 mOsm/kg 05/16/2025 1:26 AM CDT [facility] Urine URINE SPECIMEN OBTAINED BY CLEAN CATCH PROCEDURE / Unknown Collection / Unknown 05/16/2025 12:17 AM CDT 05/16/2025 12:23 AM CDT Shubhamprachi Darby LAB - URINE CHEMISTRY ORDERABLES Final Result Performing Organization Address [facility] Co de Phone Number [address] [address], [facility] [phone] * SODIUM URINE RANDOM (05/16/2025 12:17 AM CDT) Sodium Urine 77 Not Established mmol/L 05/16/2025 12:46 AM CDT [facility] Urine URINE SPECIMEN OBTAINED BY CLEAN CATCH PROCEDURE / Unknown Collection / Unknown 05/16/2025 12:17 AM CDT 05/16/2025 12:23 AM CDT Carline Fieldsel LAB - URINE CHEMISTRY ORDERABLES Final Result Performing Organization Address [facility]/ZIP Co de Phone Number [address] [address], [facility] [phone] * URINALYSIS REFLEX TO MICROSCOPIC NO CULTURE (05/16/2025 12:17 AM CDT) Color UA Yellow Yellow, Straw 05/16/2025 12:33 AM CDT [facility] Clarity UA Clear Clear 05/16/2025 12:33 AM CDT [facility] Glucose UA Normal Normal 05/16/2025 12:33 AM CDT [facility] Bilirubin UA Negative Negative 05/16/2025 12:33 AM CDT [facility] Ketone UA Negative Negative 05/16/2025 12:33 AM T [facility] Specific [place] UA 1.018 1.005 - 1.030 05/16/2025 12:33 AM T [facility] Blood UA Negative Negative 05/16/2025 12:33 AM T [facility] pH UA 5.0 5.0 - 8.0 05/16/2025 12:33 AM T [facility] Protein UA Negative Negative 05/16/2025 12:33 AM T [facility] Urobilinogen UA Normal Normal mg/dL 05/16/2025 12:33 AM T [facility] Nitrite UA Negative Negative 05/16/2025 12:33 AM [facility] Leukocyte Esterase UA Negative Negative 05/16/2025 12:33 AM [facility] Urine Microscopy Urine microscopy not indicated 05/16/2025 12:33 AM T [facility] Urine URINE SPECIMEN OBTAINED BY CLEAN CATCH PROCEDURE / Unknown Collection / Unknown 05/16/2025 12:17 AM CDT 05/16/2025 12:23 AM CDT us Carline Darby DO LAB - URINALYSIS ORDERABLES Ayanna l Result [address] [address], [facility] [phone] * (ABNORMAL) GLUCOSE - POINT OF CARE (05/15/2025 11:24 PM CDT) Glucose WB/POC 378(H) 70 - 99 mg/dL 05/16/2025 12:16 AM T [facility] Specimen Type Arterial/C apillary 05/16/2025 12:16 AM T [facility] Blood BLOOD SPECIMEN / Unknown 05/15/2025 11:24 PM CDT 05/16/2025 12:16 AM CDT us Aleja Gonzalez DO LAB - POINT OF CARE ORDERABL ES Final Result [address] [place] [address], [facility] [phone] * (ABNORMAL) COMPREHENSIVE METABOLIC PANEL (05/15/2025 10:57 PM [facility] Signature BUN 30(H) 7 - 26 mg/dL 05/16/2025 12:03 AM [facility] Creatinine 1.48(H) 0.56 - 0.96 mg/dL 05/16/2025 12:03 AM [facility] Sodium 122(LL) 136 - 145 mmol/L 05/16/2025 12:03 AM [facility] Potassium 6.1(HH) 3.5 - 4.5 mmol/L 05/16/2025 12:03 AM [facility] Comment:Hemolysis detected i n this specimen. Hemolysis may cause false elevations in potassium leading to pseudohyperkalemia or masked hypokalemia. Recommend repeat testing if clinically indicated. Chloride 90(L) 98 - 107 mmol/L 05/16/2025 12:03 AM [facility] CO2 22 22 - 29 mmol/L 05/16/2025 12:03 AM [facility] Glucose 218(H) 70 - 99 mg/dL 05/16/2025 12:03 AM [facility] Calcium 9.8 8.4 - 10.2 mg/dL 05/16/2025 12:03 AM [facility] Protein Total 6.9 6.0 - 8.3 g/dL 05/16/2025 12:03 AM [facility] Comment:Hemolysis detected i n this specimen. Hemolysis is known to cause elevations in this analyte. Caution should be exercised in the interpretation of this result. Recommend repeat testing if clinically indicated. Albumin 3.1(L) 3.4 - 5.0 g/dL 05/16/2025 12:03 AM [facility] Bilirubin Total 7.2(H) 0.2 - 1.2 mg/dL 05/16/2025 12:03 AM [facility] Alkaline Phosphatase 351(H) 40 - 150 U/L 05/16/2025 12:03 AM [facility] ALT 41 5 - 55 U/L 05/16/2025 12:03 AM [facility] AST 71(H) 5 - 34 U/L 05/16/2025 12:03 AM [facility] Comment:Hemolysis detected i n this specimen. Hemolysis is known to cause elevations in this analyte. Caution should be exercised in the interpretation of this result. Recommend repeat testing if clinically indicated. Anion Gap 10 6 - 16 05/16/2025 12:03 AM [facility] BUN/Creatinine Ratio 20 7 - 23 08/04/2025 12:03 AM [facility] Osmolality Calculated 267(L) 275 - 295 mOsm/kg 05/16/2025 12:03 AM [facility] Albumin/Globulin Ratio 0.8(L) 1.1 - 2.3 05/16/2025 12:03 AM [facility] eGFR by CKD-EPI 40(L) >=90 mL/min/1 .73 m2 05/16/2025 12:03 AM [facility] Comment:Estimated Glomerular Filtration Rate (eGFR) calculated using the CKD-EPI Creatinine Equation (2020), per the National Kidney Foundation and [place] [employer]ph[employer] recommendations. Blood BLOOD SPECIMEN / Unknown Venipuncture / Unknown 05/15/2025 10:57 PM CDT 05/15/2025 11:08 PM CDT us Carline Darby DO LAB - CHEMISTRY ORDERABLES Final Result [facility] [address] [place] [address], [facility] [phone] * (ABNORMAL) CBC W AUTO DIFFERENTIAL (05/15/2025 10:57 PM CDT) WBC 3.9(L) 4.0 - 10.7 x10E9/L 05/16/2025 12:44 AM [facility] RBC Count 4.12 3.90 - 5.20 x10E12/L 05/16/2025 12:44 AM [facility] Hemoglobin 13.7 11.9 - 15.8 g/dL 05/16/2025 12:44 AM [facility] Hematocrit 39.6 34.8 - 46.1 % 05/16/2025 12:44 AM [facility] MCV 96.1 80.0 - 98.0 fL 05/16/2025 12:44 AM [facility] MCH 33.3 26.7 - 33.6 pg 05/16/2025 12:44 AM [facility] MCHC 34.6 31.7 - 36.3 g/dL 05/16/2025 12:44 AM [facility] RDW-CV 18.6(H) 11.3 - 14.8 % 05/16/2025 12:44 AM [facility] Platelet Count 199 150 - 420 x10E9/L 05/16/2025 12:44 AM [facility] MPV 10.4 7.8 - 11.4 fL 05/16/2025 12:44 AM [facility] Neutrophil % 68.5 41.0 - 74.0 % 05/16/2025 12:44 AM [facility] Lymphocyte % 17.8 17.0 - 47.0 % 05/16/2025 12:44 AM [facility] Monocyte % 10.9 3.0 - 11.0 % 05/16/2025 12:44 AM [facility] Eosinophil % 1.3 0.0 - 7.0 % 05/16/2025 12:44 AM [facility] Basophil % 1.0 0.0 - 1.6 % 05/16/2025 12:44 AM [facility] Immature Granulocytes % 0.5 0.0 - 1.0 % 05/16/2025 12:44 AM [facility] Neutrophil Absolute 2.69 1.60 - 7.50 x10E9/L 05/16/2025 12:44 AM [facility] Lymphocyte Absolute 0.70(L) 1.00 - 4.40 x10E9/L 05/16/2025 12:44 AM [facility] Monocyte Absolute 0.43 0.15 - 1.00 x10E9/L 05/16/2025 12:44 AM [facility] Eosinophil Absolute 0.05 0.00 - 0.60 x10E9/L 05/16/2025 12:44 AM CDT [facility] Basophil Absolute 0.04 0.00 - 0.13 x10E9/L 05/16/2025 12:44 AM CDT [facility] Blood BLOOD SPECIMEN / Unknown Venipuncture / Unknown 05/15/2025 10:57 PM CDT 05/15/2025 11:08 PM CDT [facility] LAB - HEMATOLOGY ORDERABLES Ayanna l Result Performing Organization Address [facility] Co de Phone Number [address] [address], [facility] [phone] * MAGNESIUM BLOOD (05/15/2025 10:57 PM CDT) Magnesium 2.2 1.6 - 2.6 mg/dL 05/15/2025 11:55 PM CDT [facility] Comment:Hemolysis detected i n this specimen. Hemolysis is known to cause elevations in this analyte. Caution should be exercised in the interpretation of this result. Recommend repeat testing if clinically indicated. Blood BLOOD SPECIMEN / Unknown Venipuncture / Unknown 05/15/2025 10:57 PM CDT 05/15/2025 11:08 PM CDT Carline Darby LAB - CHEMISTRY ORDERABLES Final Result Performing Organization Address [facility] de Phone Number [address] [address], [facility] [phone] * MAGNESIUM BLOOD (05/15/2025 10:57 PM CDT) Magnesium 2.2 1.6 - 2.6 mg/dL 05/16/2025 12:03 AM CDT [facility] Comment:Hemolysis detected i n this specimen. Hemolysis is known to cause elevations in this analyte. Caution should be exercised in the interpretation of this result. Recommend repeat testing if clinically indicated. Blood BLOOD SPECIMEN / Unknown Venipuncture / Unknown 05/15/2025 10:57 PM CDT 05/15/2025 11:08 PM CDT us Carline Darby DO LAB - CHEMISTRY ORDERABLES Final Result [facility] [address] [place] [address], [facility] [phone] * (ABNORMAL) RENAL FUNCTION PANEL (05/15/2025 10:57 PM CDT) BUN 30(H) 7 - 26 mg/dL 05/16/2025 12:02 AM [facility] Creatinine 1.48(H) 0.56 - 0.96 mg/dL 05/16/2025 12:02 AM [facility] Sodium 122(LL) 136 - 145 mmol/L 05/16/2025 12:02 AM [facility] Potassium 6.1(HH) 3.5 - 4.5 mmol/L 05/16/2025 12:02 AM [facility] Comment:Hemolysis detected i n this specimen. Hemolysis may cause false elevations in potassium leading to pseudohyperkalemia or masked hypokalemia. Recommend repeat testing if clinically indicated. Chloride 90(L) 98 - 107 mmol/L 05/16/2025 12:02 AM [facility] CO2 22 22 - 29 mmol/L 05/16/2025 12:02 AM [facility] Glucose 218(H) 70 - 99 mg/dL 05/16/2025 12:02 AM [facility] Albumin 3.1(L) 3.4 - 5.0 g/dL 05/16/2025 12:02 AM [facility] Calcium 9.8 8.4 - 10.2 mg/dL 05/16/2025 12:02 AM [facility] Phosphorus 4.5 2.9 - 5.1 mg/dL 05/16/2025 12:02 AM [facility] Anion Gap 10 6 - 16 05/16/2025 12:02 AM [facility] BUN/Creatinine Ratio 20 7 - 23 08/0 04/2025 12:02 AM [facility] Osmolality Calculated 267(L) 275 - 295 mOsm/kg 05/16/2025 12:02 AM [facility] eGFR by CKD-EPI 40(L) >=90 mL/min/1 .73 m2 05/16/2025 12:02 AM T [facility] Comment:Estimated Glomerular Filtration Rate (eGFR) calculated using the CKD-EPI Creatinine Equation (2020), per the National Kidney Foundation and [place] [employer]ph[employer] recommendations. Blood BLOOD SPECIMEN / Unknown Venipuncture / Unknown 05/15/2025 10:57 PM CDT 05/15/2025 11:08 PM CDT us Carline Darby DO LAB - CHEMISTRY ORDERABLES Final Result [address] [address], [place] [phone] * (ABNORMAL) BILIRUBIN TOTAL+DIRECT BLOOD PANEL (05/15/2025 8:20 PM CDT) Bilirubin Total 7.0(H) 0.2 - 1.2 mg/dL 03/2025 8:51 PM CDT [facility] Bilirubin Conjugated 4.9(H) 0.1 - 0.5 mg/dL 05/15/2025 8:51 PM T [facility] Bilirubin Unconjugated 2.1 Unconjugated Bilirubin is a calculated value: Reference ranges have not been established. mg/dL 05/15/2025 8:51 PM T [facility] Blood BLOOD SPECIMEN / Unknown Venipuncture / Unknown 05/15/2025 8:20 PM CDT 05/15/2025 8:23 PM CDT us Juno Hernandez MD LAB - CHEMISTRY ORDERABLES Final Result [address] [address], [place] [phone] * CT Chest Pe W Abd Pelvis W Cont (05/15/2025 7:52 PM CDT) Anatomical Region Laterality Modality Chest, Abdomen, Pelvis Computed Tomography 05/15/2025 8:05 PM CDT Impressions 05/15/2025 10:20 PM CDT Impression: 1.No evidence of acute pulmonary embolism. There is a retained metallic wire within one of the right inferior lobe pulmonary arteries, likely iatrogenic. 2.Cardiomegaly and a moderate-sized pericardial effusion. Reflux of contrast into the hepatic veins suggesting right heart dysfunction. 3.Interstitial pulmonary edema, small volume ascites and diffuse body wall edema suggesting hypervolemia. Preliminary findings were discussed with the patient's care provider, Dr Sil Cordero by Dr. Tom Dinh via telephone at 05/15/2025 8:24 PM with readback comprehension and verification. > Dictated by Tom Dinh DO, (development vice president). > Dictated by Instrument Technologist I, Ann-Marie Campa MD have personally reviewed and interpreted this examination/study. > Interpreting Provider: Ann-Marie Campa MD on 05/15/2025 10:20 PM Narrative 05/15/2025 10:20 PM CDT PROCEDURE: CT CHEST PE W ABD PELVIS W CONT, DATE/TIME OF EXAM: 05/15/2025 7:52 PM, LOCATION [facility] INDICATION: R06.02: Shortness of breath Ordering Provider Reason For Exam: r/o PE, liver issue CONTRAST: IOPAMIDOL 76 % IV SOLN:100 mL TECHNIQUE: CT of the chest was performed following the uneventful administration of 75 mL of Isovue 370 intravenous contrast according to a pulmonary embolism protocol. CT of the abdomen and pelvis was also performed during the portal venous phase according to standard protocol. Multiplanar reconstructions were created. COMPARISON: None. Findings: Chest: Study Quality: This examination for the diagnosis of pulmonary embolism is adequate. Pulmonary Arteries: No evidence of acute pulmonary embolism. There is a metallic density linear serpiginous foreign body within one of the right inferior lobe pulmonary arteries, most likely an iatrogenic retained wire. Thoracic Vasculature: Otherwise no significant vascular abnormality is present. Lower Neck and Axillae: Normal. Lungs: Mild bilateral dependent atelectasis is present. No suspicious pulmonary nodules are identified. No pleural fluid or pneumothorax is present. Heart and Pericardium: Cardiomegaly with small volume pericardial fluid. Mediastinum and Maya: No enlarged lymph nodes are present. Other findings: None. Abdomen/pelvis: Liver: Normal. Gallbladder and Bile Ducts: The gallbladder is absent. Spleen: Normal. Pancreas: Normal. Adrenals: Normal. Kidneys: No hydronephrosis or nephrolithiasis. Gastrointestinal: The stomach and visualized loops of small bowel are unremarkable. Mild colonic diverticulosis without evidence of diverticulitis is seen. Normal appendix. Mesentery/Peritoneum/Retroperitoneum: Small volume ascites. No intraperitoneal free air. Bladder: Normal. Reproductive Organs: The uterus is normal. Abdominal Vasculature: Atherosclerotic calcification of the aorta and its branch vessels. Mild narrowing of the celiac axis near its origin, possibly related to phase of inspiration. Bones: Bone windows demonstrate no suspicious lytic or blastic lesions. The visible osseous structures are intact. Degenerative changes are seen in the spine. Soft tissues: Diffuse body wall edema. Procedure Note Ann-Marie Campa MD - 05/15/2025 PROCEDURE: CT CHEST PE W ABD PELVIS W CONT, DATE/TIME OF EXAM:05/15/2025 7:52 PM, LOCATION [facility] INDICATION: R06.02: Shortness of breath Ordering Provider Reason For Exam: r/o PE, liver issue CONTRAST: IOPAMIDOL 76 % IV SOLN:100 mL TECHNIQUE: CT of the chest was performed following the uneventful administration of 75 mL of Isovue 370 intravenous contrast according toa pulmonary embolism protocol. CT of the abdomen and pelvis was also performed during the portal venous phase according to standard protocol. Multiplanar reconstructions were created. COMPARISON: None. Findings: Chest: Study Quality: This examination for the diagnosis of pulmonary embolismis adequate. Pulmonary Arteries: No evidence of acute pulmonary embolism. There is a metallic density linear serpiginous foreign body within one of the right inferior lobe pulmonary arteries, most likely an iatrogenic retainedwire. Thoracic Vasculature: Otherwise no significant vascular abnormality is present. Lower Neck and Axillae: Normal. Lungs: Mild bilateral dependent atelectasis is present. No suspicious pulmonary nodules are identified. No pleural fluid or pneumothorax is present. Heart and Pericardium: Cardiomegaly with small volume pericardial fluid. Mediastinum and Maya: No enlarged lymph nodes are present. Other findings: None. Abdomen/pelvis: Liver: Normal. Gallbladder and Bile Ducts: The gallbladder is absent. Spleen: Normal. Pancreas: Normal. Adrenals: Normal. Kidneys: No hydronephrosis or nephrolithiasis. Gastrointestinal: The stomach and visualized loops of small bowel are unremarkable. Mild colonic diverticulosis without evidence of diverticulitis is seen. Normal appendix. Mesentery/Peritoneum/Retroperitoneum: Small volume ascites. No intraperitoneal free air. Bladder: Normal. Reproductive Organs: The uterus is normal. Abdominal Vasculature: Atherosclerotic calcification of the aorta andits branch vessels. Mild narrowing of the celiac axis near its origin,possibly related to phase of inspiration. Bones: Bone windows demonstrate no suspicious lytic or blastic lesions.The visible osseous structures are intact. Degenerative changes are seen inthe spine. Soft tissues: Diffuse body wall edema. Impression: 1.No evidence of acute pulmonary embolism. There is a retained metallic wire within one of the right inferior lobe pulmonary arteries, likely iatrogenic. 2.Cardiomegaly and a moderate-sized pericardial effusion. Reflux of contrast into the hepatic veins suggesting right heart dysfunction. 3.Interstitial pulmonary edema, small volume ascites and diffuse bodywall edema suggesting hypervolemia. Preliminary findings were discussed with the patient's care provider, Dr Sil Cordero by Dr. Tom Dinh via telephone at 05/15/2025 8:24 PMwith readback comprehension and verification. > Dictated by Tom Dinh DO, (development vice president). > Dictated by Instrument Technologist I, Ann-Marie Campa MD have personally reviewed and interpreted this examination/study. > Interpreting Provider: Ann-Marie Campa MD on 05/15/2025 10:20 PM us Juno Hernandez MD CT ORDERABLES Final Resul t * (ABNORMAL) GLUCOSE - POINT OF CARE (05/15/2025 7:50 PM CDT) Glucose WB/POC 225(H) 70 - 99 mg/dL 05/15/2025 7:51 PM CDT [facility] Specimen Type Arterial/C apillary 05/15/2025 7:51 PM CDT [facility] Blood BLOOD SPECIMEN / Unknown 05/15/2025 7:50 PM CDT 05/15/2025 7:51 PM CDT us Juno Hernandez MD LAB - POINT OF CARE ORDERAB LES Final Result [facility] [address] [place] [address], [place] [phone] * (ABNORMAL) TROPONIN-I HIGH SENSITIVE REFLEX 1HOUR (05/15/2025 4:06 PM CDT) [facility] Troponin I High Sensitive 23(H) <=14 ng/L 05/15/2025 4:53 PM CDT [facility] Delta Troponin I HS <0 <6 ng/L 05/15/2025 4:53 PM CDT [facility] Blood BLOOD SPECIMEN / Unknown Venipuncture / Unknown 05/15/2025 4:06 PM CDT 05/15/2025 4:11 PM CDT Sweta Lundy PA-C LAB - CHEMISTRY ORDERABLES Fi nal Result [address] [address], [place] [phone] * MAGNESIUM BLOOD (05/15/2025 4:06 PM CDT) [facility] Magnesium 2.2 1.6 - 2.6 mg/dL 05/15/2025 4:56 PM CDT [facility] Blood BLOOD SPECIMEN / Unknown Venipuncture / Unknown 05/15/2025 4:06 PM CDT 05/15/2025 4:11 PM CDT Sweta Lundy PA-C LAB - CHEMISTRY ORDERABLES Fi nal Result [address] [address], [place] [phone] * (ABNORMAL) COMPREHENSIVE METABOLIC PANEL (05/15/2025 4:06 PM CDT) [facility] BUN 31(H) 7 - 26 mg/dL 05/15/2025 5:06 PM CDT [facility] Creatinine 1.48(H) 0.56 - 0.96 mg/dL 05/15/2025 5:06 PM CDT [facility] Sodium 122(LL) 136 - 145 mmol/L 05/15/2025 5:06 PM CDT [facility] Potassium 6.1(HH) 3.5 - 4.5 mmol/L 05/15/2025 5:06 PM [facility] Chloride 91(L) 98 - 107 mmol/L 05/15/2025 5:06 PM [facility] CO2 22 22 - 29 mmol/L 05/15/2025 5:06 PM [facility] Glucose 164(H) 70 - 99 mg/dL 05/15/2025 5:06 PM [facility] Calcium 9.3 8.4 - 10.2 mg/dL 05/15/2025 5:06 PM [facility] Protein Total 7.0 6.0 - 8.3 g/dL 05/15/2025 5:06 PM [facility] Albumin 3.1(L) 3.4 - 5.0 g/dL 05/15/2025 5:06 PM [facility] Bilirubin Total 7.7(H) 0.2 - 1.2 mg/dL 05/15/2025 5:06 PM [facility] Alkaline Phosphatase 365(H) 40 - 150 U/L 05/15/2025 5:06 PM [facility] ALT 41 5 - 55 U/L 05/15/2025 5:06 PM [facility] AST 59(H) 5 - 34 U/L 05/15/2025 5:06 PM [facility] Anion Gap 9 6 - 16 05/15/2025 5:06 PM [facility] BUN/Creatinine Ratio 21 7 - 23 05/15/2025 5:06 PM [facility] Osmolality Calculated 264(L) 275 - 295 mOsm/kg 05/15/2025 5:06 PM [facility] Albumin/Globulin Ratio 0.8(L) 1.1 - 2.3 05/15/2025 5:06 PM [facility] eGFR by CKD-EPI 40(L) >=90 mL/min/1.7 3 m2 05/15/2025 5:06 PM [facility] Comment:Estimated Glomerular Filtration Rate (eGFR) calculated using the CKD-EPI Creatinine Equation (2020), per the National Kidney Foundation and [place] [employer]ph[employer] recommendations. Blood BLOOD SPECIMEN / Unknown Venipuncture / Unknown 05/15/2025 4:06 PM CDT 05/15/2025 4:11 PM CDT Sweta BARCLAY-Darlene LAB - CHEMISTRY ORDERABLES Fi nal Result Performing Organization Address [facility] Co de Phone Number [address] [address], [facility] [phone] * (ABNORMAL) B-TYPE NATRIURETIC PEPTIDE (05/15/2025 2:54 PM CDT) BNP 2,209(H) <100 pg/mL 05/15/2025 3:43 PM CDT [facility] Comment: A decision threshold of 100 pg/mL has been demonstrated to provide the maximal combination of sensitivity, specificity and predictive value for the diagnosis of congestive heart failure (CHF). Virtually all patients with no evidence of CHF have BNP values less than 100 pg/mL. A BNP value greater than 100 pg/mL is consistent with the diagnosis of CHF in the appropriate clinical setting. In a study of 693 patients (male and female) with diagnosed CHF, the following values were determined based on the NYHA functional classification system: NYHA Functional Class Mean Valule (pg/mL) % >100 pg/mL I 320 58.1 II 432 73.0 III 656 79.0 IV 1635 98.3 Blood BLOOD SPECIMEN / Unknown Venipuncture / Unknown 05/15/2025 2:54 PM CDT 05/15/2025 3:00 PM CDT Sweta Lundy PA-C LAB - CHEMISTRY ORDERABLES Fi nal Result Performing Organization Address [facility]/ZIP Co de Phone Number [address] [address], [place] [phone] * (ABNORMAL) PT-INR (05/15/2025 2:54 PM CDT) PT 29.5(H) 12.1 - 14.8 Seconds 05/15/2025 3:49 PM CDT [facility] INR 2.9 See Comment 05/15/2025 3:49 PM CDT [facility] Comment:The suggested therap eutic range for standard coumadin (warfarin) therapy is an INR of 2.0-3.0. For high-risk patients (Mechanical Mitral Valve Prosthesis, etc.), the suggested prophylactic therapeutic range is an INR of 2.5-3.5. Blood BLOOD SPECIMEN / Unknown Venipuncture / Unknown 05/15/2025 2:54 PM CDT 05/15/2025 3:00 PM CDT Sweta Lundy PA-C LAB - COAGULATION ORDERABLES Final Result Performing Organization Address City/[facility]/ZIP Co de Phone Number [address] [address], [facility] [phone] * (ABNORMAL) LIPASE BLOOD (05/15/2025 2:54 PM CDT) Lipase 7(L) 8 - 78 U/L 05/15/2025 3:45 PM CDT [facility] Blood BLOOD SPECIMEN / Unknown Venipuncture / Unknown 05/15/2025 2:54 PM CDT 05/15/2025 3:00 PM CDT Narrative [facility] - 05/15/2025 3:45 PM CDT Lipase results from the [employer] analyzer may not be comparable with other methodologies. Sweta Lundy PA-C LAB - CHEMISTRY ORDERABLES Fi nal Result Performing Organization Address City/[facility]/ZIP Co de Phone Number [address] [address], [facility] [phone] * (ABNORMAL) TROPONIN-I HIGH SENSITIVE BASELINE + 1HR (05/15/2025 2:54 PM CDT) Troponin I High Sensitive 24(H) <=14 ng/L 05/15/2025 3:43 PM CDT [facility] Blood BLOOD SPECIMEN / Unknown Venipuncture / Unknown 05/15/2025 2:54 PM CDT 05/15/2025 3:00 PM CDT us Sweta Lundy PA-C LAB - CHEMISTRY ORDERABLES Fi nal Result [facility] [address] [place] [address], [facility] [phone] * (ABNORMAL) CBC W AUTO DIFFERENTIAL (05/15/2025 2:54 PM CDT) WBC 3.9(L) 4.0 - 10.7 x10E9/L 05/15/2025 3:09 PM [facility] RBC Count 4.44 3.90 - 5.20 x10E12/L 05/15/2025 3:09 PM [facility] Hemoglobin 14.6 11.9 - 15.8 g/dL 05/15/2025 3:09 PM [facility] Hematocrit 43.4 34.8 - 46.1 % 05/15/2025 3:09 PM [facility] MCV 97.7 80.0 - 98.0 fL 05/15/2025 3:09 PM [facility] MCH 32.9 26.7 - 33.6 pg 05/15/2025 3:09 PM [facility] MCHC 33.6 31.7 - 36.3 g/dL 05/15/2025 3:09 PM [facility] RDW-CV 18.5(H) 11.3 - 14.8 % 05/15/2025 3:09 PM [facility] Platelet Count 203 150 - 420 x10E9/L 05/15/2025 3:09 PM [facility] MPV 10.0 7.8 - 11.4 fL 05/15/2025 3:09 PM [facility] Neutrophil % 71.5 41.0 - 74.0 % 05/15/2025 3:09 PM [facility] Lymphocyte % 16.5(L) 17.0 - 47.0 % 05/15/2025 3:09 PM [facility] Monocyte % 9.9 3.0 - 11.0 % 05/15/2025 3:09 PM [facility] Eosinophil % 0.8 0.0 - 7.0 % 05/15/2025 3:09 PM [facility] Basophil % 1.0 0.0 - 1.6 % 05/15/2025 3:09 PM [facility] Immature Granulocytes % 0.3 0.0 - 1.0 % 05/15/2025 3:09 PM [facility] Neutrophil Absolute 2.82 1.60 - 7.50 x10E9/L 05/15/2025 3:09 PM [facility] Lymphocyte Absolute 0.65(L) 1.00 - 4.40 x10E9/L 05/15/2025 3:09 PM [facility] Monocyte Absolute 0.39 0.15 - 1.00 x10E9/L 05/15/2025 3:09 PM [facility] Eosinophil Absolute 0.03 0.00 - 0.60 x10E9/L 05/15/2025 3:09 PM CDT [facility] Basophil Absolute 0.04 0.00 - 0.13 x10E9/L 05/15/2025 3:09 PM CDT [facility] Blood BLOOD SPECIMEN / Unknown Venipuncture / Unknown 05/15/2025 2:54 PM CDT 05/15/2025 3:00 PM CDT us Sweta Lundy PA-C LAB - HEMATOLOGY ORDERABLES F inal Result [facility] [address] [place] [address], [facility] [phone] * XR CHEST 2VW (05/15/2025 2:41 PM CDT) Anatomical Region Laterality Modality Chest Digital Radiogra phy 05/15/2025 3:02 PM CDT Impressions 05/15/2025 3:03 PM CDT IMPRESSION: A linear wire-like density projects over the right perihilar region. Cardiomegaly. Likely enlarged pulmonary arteries. Mild interstitial edema. Trace pleural effusions. No pneumothorax. > Interpreting Provider: Felipe Munoz MD on 05/15/2025 3:03 PM Narrative 05/15/2025 3:03 PM CDT PROCEDURE: XR CHEST 2VW DATE/TIME OF EXAM: 05/15/2025 2:41 PM CLINICAL INFORMATION: None relevant/not provided if blank. Indication: R06.02: Shortness of breath Additional History: COMPARISON: None. Procedure Note Felipe Munoz MD - 05/15/2025 PROCEDURE: XR CHEST 2VW DATE/TIME OF EXAM: 05/15/2025 2:41 PM CLINICAL INFORMATION: None relevant/not provided if blank. Indication: R06.02: Shortness of breath Additional History: COMPARISON: None. IMPRESSION: A linear wire-like density projects over the right perihilar region. Cardiomegaly. Likely enlarged pulmonary arteries. Mild interstitialedema. Trace pleural effusions. No pneumothorax. > Interpreting Provider: Felipe Munoz MD on 05/15/2025 3:03 PM [employer] Sweta Lundy PA-C DIAGNOSTIC IMAGING ORDERABLES Final Result * EKG 12-LEAD (05/15/2025 2:20 PM CDT) Ventricular Rate 106 BPM [facility] MUSE QRS Duration ms 92 ms [facility] MUSE Q-T Interval ms 454 ms [facility] MUSE QTC Calculation (Bezet) 603 ms [facility] MUSE Calculated R [place] 0 degrees SL MUSE Calculated T [place] -31 degrees [facility] MUSE Interpretation EKG SINUS TACHYCARDIA Hyperkalemia PROLONGED QT ABNORMAL ECG NO PREVIOUS ECGS AVAILABLE Confirmed by DAREK PARADA MD ([id number]) on 05/21/2025 8:34:24 AM [facility] MUSE 05/15/2025 2:20 PM CDT 05/21/2025 8:34 AM CDT [employer] Sweta Lundy PA-C ECG ORDERABLES Edited Result - Final [facility] MUSE documented in this encounter Visit Diagnoses Diagnosis Shortness of breath Hyperkalemia Hyperpotassemia Acute on chronic congestive heart failure, unspecified heart failure type (HCC) Hyponatremia Hyposmolality and/or hyponatremia Azotemia Other abnormal blood chemistry Elevated troponin Other abnormal blood chemistry Transaminitis Nonspecific elevation of levels of transaminase or lactic acid dehydrogenase (LDH) Hyperbilirubinemia Disorders of bilirubin excretion Elevated alkaline phosphatase level Other nonspecific abnormal serum enzyme levels Chest pain, unspecified type Obesity with serious comorbidity, unspecified class, unspecified obesity type Acute kidney injury Acute kidney failure, unspecified History of endocarditis Personal history of other diseases of circulatory system Other shock (HCC) Atrial fibrillation, unspecified type (HCC) Traumatic brain injury with loss of consciousness, sequela Left atrial thrombus Other ill-defined heart disease Shortness of breath Hyperkalemia Hyperpotassemia Hyperbilirubinemia Disorders of bilirubin excretion Hyponatremia Hyposmolality and/or hyponatremia Transaminitis Nonspecific elevation of levels of transaminase or lactic acid dehydrogenase (LDH) Azotemia Other abnormal blood chemistry Elevated troponin Other abnormal blood chemistry Elevated alkaline phosphatase level Other nonspecific abnormal serum enzyme levels Acute on chronic congestive heart failure, unspecified heart failure type (HCC) Chest pain, unspecified type Obesity with serious comorbidity, unspecified class, unspecified obesity type Demand ischemia (HCC) Other acute and subacute form of ischemic heart disease History of endocarditis Personal history of other diseases of circulatory system Agitation Other and unspecified special symptom or syndrome, not elsewhere classified Hypothyroidism Unspecified hypothyroidism Atrial fibrillation (HCC) Atrial fibrillation Prolonged Q-T interval on ECG Nonspecific abnormal electrocardiogram (ECG) (EKG) Pericardial effusion (HCC) Unspecified disease of pericardium Acute kidney injury Acute kidney failure, unspecified Type 2 diabetes mellitus, without long-term current use of insulin (HCC) Other shock (HCC) * Assessment & Plan Note - Jennifer Burton MD - 06/05/2025 3:19 PM CDTAssociated Problem(s): Hyperkalemia Hyperkalemia, improving Continue to monitor * Assessment & Plan Note - Jennifer Butron MD - 06/05/2025 3:19 PM CDTAssociated Problem(s): Hyponatremia Hyperkalemia, improving Continue to monitor * Assessment & Plan Note - Jennifer Burton MD - 06/05/2025 3:19 PM CDTAssociated Problem(s): Demand ischemia (HCC) - TTE with EF of 25% on 05/27/25 Patient's blood pressure is staying soft Had recent cardiogenic/mixed shock Not volume overloaded, discontinued Bumex - Empagliflozin 10mg Continue metop succ and entresto -regarding severe TR: not to have inpt intervention but will need outpt f/u. Pt was supposed to follow with [facility], advise to keep that appointment but will refer to [facility] in case Cont on cefadroxil 500mg BID on discharge * Assessment & Plan Note - Jennifer Burton MD - 06/05/2025 3:19 PM CDTAssociated Problem(s): Acute on chronic congestive heart failure, unspecified heart failure type (HCC) - TTE with EF of 25% on 05/27/25 Patient's blood pressure is staying soft Had recent cardiogenic/mixed shock Not volume overloaded, discontinued Bumex - Empagliflozin 10mg Continue metop succ and entresto -regarding severe TR: not to have inpt intervention but will need outpt f/u. Pt was supposed to follow with [facility], advise to keep that appointment but will refer to [facility] in case Cont on cefadroxil 500mg BID on discharge * Assessment & Plan Note - Jennifer Burton MD - 06/05/2025 3:19 PM CDTAssociated Problem(s): History of endocarditis - TTE with EF of 25% on 05/27/25 Patient's blood pressure is staying soft Had recent cardiogenic/mixed shock Not volume overloaded, discontinued Bumex - Empagliflozin 10mg Continue metop succ and entresto -regarding severe TR: not to have inpt intervention but will need outpt f/u. Pt was supposed to follow with [facility], advise to keep that appointment but [facility] Cont on cefadroxil 500mg BID on discharge * Assessment & Plan Note - Jennifer Burton MD - 06/05/2025 7:51 AM CDTAssociated Problem(s): Atrial fibrillation (HCC) - Cont home xarelto, had not previously been getting due to agitation - RVR resolved after digoxin load - Unable to do DCCV d/t LA thrombus PLAN: - Cont Eliquis - Will need repeat CHANCE in 3 months on discharge to reassess thrombus * Assessment & Plan Note - Jennifer Burton MD - 06/05/2025 7:51 AM CDTAssociated Problem(s): Prolonged Q-T interval on ECG - Cont home xarelto, had not previously been getting due to agitation - RVR resolved after digoxin load - Unable to do DCCV d/t LA thrombus PLAN: - Cont Eliquis - Will need repeat CHANCE in 3 months on discharge to reassess thrombus * Assessment & Plan Note - Jennifer Burton MD - 06/05/2025 7:51 AM CDTAssociated Problem(s): Hypothyroidism - Cont home levothyroxine * Assessment & Plan Note - Jennifer Burton MD - 06/05/2025 7:51 AM CDTAssociated Problem(s): Acute kidney injury - BUN increasing, will ctm RFP. Likely iso hypovolemia from diuresis. Diuretics held for now * Assessment & Plan Note - Jennifer Butron MD - 06/05/2025 7:51 AM CDTAssociated Problem(s): Shortness of breath Resolved * Assessment & Plan Note - Jennifer Burton MD - 06/05/2025 7:51 AM CDTAssociated Problem(s): Pericardial effusion (HCC) Resolved * Assessment & Plan Note - Jennifer Burton MD - 06/05/2025 7:51 AM CDTAssociated Problem(s): Hyperbilirubinemia Liver ultrasound; 8/8 with cirrhotic morphology and congestive hepatopathy Cholecystectomy done decades ago Will need GI follow up OP * Assessment & Plan Note - Jennifer Burton MD - 06/05/2025 7:51 AM CDTAssociated Problem(s): Transaminitis Liver ultrasound; 8/8 with cirrhotic morphology and congestive hepatopathy Cholecystectomy done decades ago Will need GI follow up OP * Assessment & Plan Note - Jennifer Burton MD - 06/05/2025 7:51 AM CDTAssociated Problem(s): Obesity with serious comorbidity, unspecified class, unspecified obesity type Continue Accu-Chek, SSI, Lantus * Assessment & Plan Note - Jennifer Burton MD - 06/05/2025 7:51 AM CDTAssociated Problem(s): Type 2 diabetes mellitus, without long-term current use of insulin (HCC) Continue Accu-Chek, SSI, Lantus * Assessment & Plan Note - Jennifer Burton MD - 06/05/2025 7:51 AM CDTAssociated Problem(s): Agitation - Pt noted to be obtunded at 4AM on 05/17, was given ativan earlier In the night for agitation - EEG with generalized slowing - sedation weaned off on M - CT head 05/20 - no acute abnormalities - At baseline, pt responds to her name and is able to express what she wants/doesn't want per sister. Has very limited understanding of her medical conditions iso TBI; sisters administer her meds, and otherwise patient reportedly does ADLs. non compliant with cardiac diet at home, and has numerous admissions for HF exacerbations in past - Avoid benzos * Assessment & Plan Note - Jennifer Burton MD - 06/05/2025 7:48 AM CDTAssociated Problem(s): Atrial fibrillation (HCC) - Cont home xarelto, had not previously been getting due to agitation - RVR resolved after digoxin load - Unable to do DCCV d/t LA thrombus PLAN: - Cont Eliquis - Will need repeat CHANCE in 3 months on discharge to reassess thrombus * Assessment & Plan Note - Jennifer Burton MD - 06/05/2025 7:48 AM CDTAssociated Problem(s): Prolonged Q-T interval on ECG - Cont home xarelto, had not previously been getting due to agitation - RVR resolved after digoxin load - Unable to do DCCV d/t LA thrombus PLAN: - Cont Eliquis - Will need repeat CHANCE in 3 months on discharge to reassess thrombus * Assessment & Plan Note - Jennifer Burton MD - 06/05/2025 7:48 AM CDTAssociated Problem(s): Atrial fibrillation (HCC) - Cont home xarelto, had not previously been getting due to agitation - RVR resolved after digoxin load - Unable to do DCCV d/t LA thrombus PLAN: - Cont Eliquis - Will need repeat CHANCE in 3 months on discharge to reassess thrombus * Assessment & Plan Note - Jennifer Burton MD - 06/05/2025 7:48 AM CDTAssociated Problem(s): Prolonged Q-T interval on ECG - Cont home xarelto, had not previously been getting due to agitation - RVR resolved after digoxin load - Unable to do DCCV d/t LA thrombus PLAN: - Cont Eliquis - Will need repeat CHANCE in 3 months on discharge to reassess thrombus * Assessment & Plan Note - Jennifer Burton MD - 06/04/2025 11:26 AM CDT Associated Problem(s): Agitation - Pt noted to be obtunded at 4AM on 05/17, was given ativan earlier In the night for agitation - EEG with generalized slowing - sedation weaned off on M - CT head 05/20 - no acute abnormalities - At baseline, pt responds to her name and is able to express what she wants/doesn't want per sister. Has very limited understanding of her medical conditions iso TBI; sisters administer her meds, and otherwise patient reportedly does ADLs. non compliant with cardiac diet at home, and has numerous admissions for HF exacerbations in past - Avoid benzos * Assessment & Plan Note - Jennifer Burton MD - 06/04/2025 8:08 AM CDTAssociated Problem(s): Shortness of breath Resolved * Assessment & Plan Note - Jennifer Burton MD - 06/04/2025 8:08 AM CDTAssociated Problem(s): Pericardial effusion (HCC) Resolved * Assessment & Plan Note - Jennifer Burton MD - 06/04/2025 8:08 AM CDTAssociated Problem(s): Hyperbilirubinemia Liver ultrasound; 05/17 with cirrhotic morphology and congestive hepatopathy Cholecystectomy done decades ago Will need GI follow up OP * Assessment & Plan Note - Jennifer Burton MD - 06/04/2025 8:08 AM CDTAssociated Problem(s): Transaminitis Liver ultrasound; 05/17 with cirrhotic morphology and congestive hepatopathy Cholecystectomy done decades ago Will need GI follow up OP * Assessment & Plan Note - Jennifer Burton MD - 06/04/2025 8:08 AM CDTAssociated Problem(s): Hyperkalemia Hyponatremia, resolved Hyperkalemia, improving Continue to monitor * Assessment & Plan Note - Jennifer Burton MD - 06/04/2025 8:08 AM CDTAssociated Problem(s): Hyponatremia Hyponatremia, resolved Hyperkalemia, improving Continue to monitor * Assessment & Plan Note - Jennifer Burton MD - 06/04/2025 8:08 AM CDTAssociated Problem(s): Obesity with serious comorbidity, unspecified class, unspecified obesity type Continue Accu-Chek, SSI, Lantus * Assessment & Plan Note - Jennifer Burton MD - 06/04/2025 8:08 AM CDTAssociated Problem(s): Type 2 diabetes mellitus, without long-term current use of insulin (HCC) Continue Accu-Chek, SSI, Lantus * Assessment & Plan Note - Jennifer Burton MD - 06/04/2025 8:08 AM CDTAssociated Problem(s): Demand ischemia (HCC) - TTE with EF of 25% on 05/27/25 Patient's blood pressure is staying soft Had recent cardiogenic/mixed shock Not volume overloaded, discontinued Bumex - Empagliflozin 10mg Continue metop succ and entresto -regarding severe TR: not to have inpt intervention but will need outpt f/u. Pt was supposed to follow with [facility], advise to keep that appointment but will refer to [facility] in case Continue home cefadroxil; (cont on cefadroxil 500mg BID on discharge) * Assessment & Plan Note - Jennifer Burton MD - 06/04/2025 8:08 AM CDTAssociated Problem(s): Acute on chronic congestive heart failure, unspecified heart failure type (HCC) - TTE with EF of 25% on 05/27/25 Patient's blood pressure is staying soft Had recent cardiogenic/mixed shock Not volume overloaded, discontinued Bumex - Empagliflozin 10mg Continue metop succ and entresto -regarding severe TR: not to have inpt intervention but will need outpt f/u. Pt was supposed to follow with [facility], advise to keep that appointment but will refer to [facility] in case Continue home cefadroxil; (cont on cefadroxil 500mg BID on discharge) * Assessment & Plan Note - Jennifer Burton MD - 06/04/2025 8:08 AM CDTAssociated Problem(s): History of endocarditis - TTE with EF of 25% on 05/27/25 Patient's blood pressure is staying soft Had recent cardiogenic/mixed shock Not volume overloaded, discontinued Bumex - Empagliflozin 10mg Continue metop succ and entresto -regarding severe TR: not to have inpt intervention but will need outpt f/u. Pt was supposed to follow with [facility], advise to keep that appointment but will refer to [facility] in case Continue home cefadroxil; (cont on cefadroxil 500mg BID on discharge) * Assessment & Plan Note - Jennifer Burton MD - 06/04/2025 8:08 AM CDTAssociated Problem(s): Hypothyroidism - Cont home levothyroxine * Assessment & Plan Note - Jennifer Burton MD - 06/04/2025 8:08 AM CDTAssociated Problem(s): Acute kidney injury - BUN increasing, will ctm RFP. Likely iso hypovolemia from diuresis. Diuretics held for now * Assessment & Plan Note - Jennifer Burton MD - 06/03/2025 2:30 PM CDTAssociated Problem(s): Hyperkalemia Hyponatremia, resolved Hyperkalemia, improving Continue to monitor * Assessment & Plan Note - Jennifer Burton MD - 06/03/2025 2:30 PM CDTAssociated Problem(s): Hyponatremia Hyponatremia, resolved Hyperkalemia, improving Continue to monitor * Assessment & Plan Note - Jennifer Burton MD - 06/03/2025 2:30 PM CDTAssociated Problem(s): Obesity with serious comorbidity, unspecified class, unspecified obesity type Continue Accu-Chek, SSI, Lantus * Assessment & Plan Note - Jennifer Burton MD - 06/03/2025 2:30 PM CDTAssociated Problem(s): Type 2 diabetes mellitus, without long-term current use of insulin (HCC) Continue Accu-Chek, SSI, Lantus * Assessment & Plan Note - Jennifer Burton MD - 06/03/2025 2:30 PM CDTAssociated Problem(s): Agitation - Pt noted to be obtunded at 4AM on 05/17, was given ativan earlier In the night for agitation - EEG with generalized slowing - sedation weaned off on M - CT head 05/20 - no acute abnormalities - At baseline, pt responds to her name and is able to express what she wants/doesn't want per sister. Has very limited understanding of her medical conditions iso TBI; sisters administer her meds, and otherwise patient reportedly does ADLs. non compliant with cardiac diet at home, and has numerous admissions for HF exacerbations in past - Avoid benzos * Assessment & Plan Note - Jennifer Burton MD - 06/03/2025 2:30 PM CDTAssociated Problem(s): Demand ischemia (HCC) - TTE with EF of 25% on 05/27/25 Patient's blood pressure is staying soft Had recent cardiogenic/mixed shock Not volume overloaded, discontinued Bumex - Empagliflozin 10mg Continue metop succ and entresto -regarding severe TR: not to have inpt intervention but will need outpt f/u. Pt was supposed to follow with [facility], advise to keep that appointment but will refer to [facility] in [facility] Continue home cefadroxil; (cont on cefadroxil 500mg BID on discharge) * Assessment & Plan Note - Jennifer Burton MD - 06/03/2025 2:30 PM CDTAssociated Problem(s): Acute on chronic congestive heart failure, unspecified heart failure type (HCC) - TTE with EF of 25% on 05/27/25 Patient's blood pressure is staying soft Had recent cardiogenic/mixed shock Not volume overloaded, discontinued Bumex - Empagliflozin 10mg Continue metop succ and entresto -regarding severe TR: not to have inpt intervention but will need outpt f/u. Pt was supposed to follow with [facility], advise to keep that appointment but will refer to [facility] in case Continue home cefadroxil; (cont on cefadroxil 500mg BID on discharge) * Assessment & Plan Note - Jennifer Burton MD - 06/03/2025 2:30 PM CDTAssociated Problem(s): History of endocarditis - TTE with EF of 25% on 05/27/25 Patient's blood pressure is staying soft Had recent cardiogenic/mixed shock Not volume overloaded, discontinued Bumex - Empagliflozin 10mg Continue metop succ and entresto -regarding severe TR: not to have inpt intervention but will need outpt f/u. Pt was supposed to follow with [facility], advise to keep that appointment but will refer to [facility] in case Continue home cefadroxil; (cont on cefadroxil 500mg BID on discharge) * Assessment & Plan Note - Jennifer Burtno MD - 06/03/2025 2:30 PM CDTAssociated Problem(s): Hypothyroidism - Cont home levothyroxine * Assessment & Plan Note - Jennifer Burton MD - 06/03/2025 2:30 PM CDTAssociated Problem(s): Acute kidney injury - BUN increasing, will ctm RFP. Likely iso hypovolemia from diuresis. Diuretics held for now * Assessment & Plan Note - Jennifer Burton MD - 06/03/2025 2:30 PM CDTAssociated Problem(s): Shortness of breath Resolved * Assessment & Plan Note - Jennifer Burton MD - 06/03/2025 2:30 PM CDTAssociated Problem(s): Pericardial effusion (HCC) Resolved * Assessment & Plan Note - Jennifer Burton MD - 06/03/2025 2:30 PM CDTAssociated Problem(s): Hyperbilirubinemia Liver ultrasound; 05/17 with cirrhotic morphology and congestive hepatopathy Cholecystectomy done decades ago Will need GI follow up OP * Assessment & Plan Note - Jennifer Burton MD - 06/03/2025 2:30 PM CDTAssociated Problem(s): Transaminitis Liver ultrasound; 05/17 with cirrhotic morphology and congestive hepatopathy Cholecystectomy done decades ago Will need GI follow up OP * Assessment & Plan Note - Vamsi Rocha MD - 06/02/2025 7:46 AM CDT Associated Problem(s): Hyperkalemia - Pt hyperkalemic on arrival, shifted with insulin + dextrose and started on lokelma - Noted to be HypoNa, though baseline may be close to 130-132 - Likely hypervolemic hyponatremia iso cardiogenic shock and ADHF PLAN: - Replete lytes as needed * Assessment & Plan Note - Vamsi Rocha MD - 06/02/2025 7:46 AM CDT Associated Problem(s): Hyponatremia - Pt hyperkalemic on arrival, shifted with insulin + dextrose and started on lokelma - Noted to be HypoNa, though baseline may be close to 130-132 - Likely hypervolemic hyponatremia iso cardiogenic shock and ADHF PLAN: - Replete lytes as needed * Assessment & Plan Note - Vamsi Rocha MD - 06/02/2025 7:46 AM CDT Associated Problem(s): Obesity with serious comorbidity, unspecified class, unspecified obesity type - per notes from 04/19, home regimen is 17U lantus in AM, 12U TID AC + slide 0-10U - Noted to have hypoglycemic episode on 87AM - BG has been ranging 220-300s on 05/20 PLAN: - Cont SSI 0-18U, accuchecks with meals - Cont lantus 5U qhs * Assessment & Plan Note - Vamsi Rocha MD - 06/02/2025 7:46 AM CDT Associated Problem(s): Type 2 diabetes mellitus, without long-term current use of insulin (HCC) - per notes from 04/19, home regimen is 17U lantus in AM, 12U TID AC + slide 0-10U - Noted to have hypoglycemic episode on 8/7AM - BG has been ranging 220-300s on 05/20 PLAN: - Cont SSI 0-18U, accuchecks with meals - Cont lantus 5U qhs * Assessment & Plan Note - Vamsi Rocha MD - 06/02/2025 7:46 AM CDT Associated Problem(s): Agitation - Pt noted to be obtunded at 4AM on 05/17, was given ativan earlier In the night for agitation - EEG with generalized slowing - sedation weaned off on M - CT head 05/20 - no acute abnormalities - At baseline, pt responds to her name and is able to express what she wants/doesn't want per sister. Has very limited understanding of her medical conditions iso TBI; sisters administer her meds, and otherwise patient reportedly does ADLs. non compliant with cardiac diet at home, and has numerous admissions for HF exacerbations in past - Avoid benzos * Assessment & Plan Note - Vamsi Rocha MD - 06/02/2025 7:46 AM CDT Associated Problem(s): Demand ischemia (HCC) - TTE with EF of 25% on 05/27/25 Patient's blood pressure is staying soft Had recent cardiogenic/mixed shock Not volume overloaded, discontinued Bumex - Empagliflozin 10mg Continue metop succ and entresto -regarding severe TR: not to have inpt intervention but will need outpt f/u. Pt was supposed to follow with [facility], advise to keep that appointment but will refer to [facility] in case - Resumed home cefadroxil; cont on cefadroxil 500mg BID on discharge * Assessment & Plan Note - Vamsi Rocha MD - 06/02/2025 7:46 AM CDT Associated Problem(s): Acute on chronic congestive heart failure, unspecified heart failure type (HCC) - TTE with EF of 25% on 05/27/25 Patient's blood pressure is staying soft Had recent cardiogenic/mixed shock Not volume overloaded, discontinued Bumex - Empagliflozin 10mg Continue metop succ and entresto -regarding severe TR: not to have inpt intervention but will need outpt f/u. Pt was supposed to follow with [facility], advise to keep that appointment but will refer to [facility] in case - Resumed home cefadroxil; cont on cefadroxil 500mg BID on discharge * Assessment & Plan Note - Vamsi Rocha MD - 06/02/2025 7:46 AM CDT Associated Problem(s): History of endocarditis - TTE with EF of 25% on 05/27/25 Patient's blood pressure is staying soft Had recent cardiogenic/mixed shock Not volume overloaded, discontinued Bumex - Empagliflozin 10mg Continue metop succ and entresto -regarding severe TR: not to have inpt intervention but will need outpt f/u. Pt was supposed to follow with [facility], advise to keep that appointment but will refer to [facility] in case - Resumed home cefadroxil; cont on cefadroxil 500mg BID on discharge * Assessment & Plan Note - Vamsi Rocha MD - 06/02/2025 7:46 AM CDT Associated Problem(s): Atrial fibrillation (HCC) - Cont home xarelto, had not previously been getting due to agitation - RVR resolved after digoxin load - Unable to do DCCV d/t LA thrombus PLAN: - Cont xarelto - Will need repeat CHANCE in 3 months on discharge to reassess thrombus * Assessment & Plan Note - Vamsi Rocha MD - 06/02/2025 7:46 AM CDT Associated Problem(s): Prolonged Q-T interval on ECG - Cont home xarelto, had not previously been getting due to agitation - RVR resolved after digoxin load - Unable to do DCCV d/t LA thrombus PLAN: - Cont xarelto - Will need repeat CHANCE in 3 months on discharge to reassess thrombus * Assessment & Plan Note - Vamsi Rocha MD - 06/02/2025 7:46 AM CDT Associated Problem(s): Hypothyroidism - Cont home levothyroxine * Assessment & Plan Note - Vamsi Rocha MD - 06/02/2025 7:46 AM CDT Associated Problem(s): Acute kidney injury - BUN increasing, will ctm RFP. Likely iso hypovolemia from diuresis. Diuretics held for now * Assessment & Plan Note - Vamsi Rocha MD - 06/02/2025 7:46 AM CDT Associated Problem(s): Shortness of breath Resolved * Assessment & Plan Note - Vamsi Rocha MD - 06/02/2025 7:46 AM CDT Associated Problem(s): Pericardial effusion (HCC) Resolved * Assessment & Plan Note - Vamsi Rocha MD - 06/02/2025 7:46 AM CDT Associated Problem(s): Hyperbilirubinemia Liver ultrasound; 05/17 with cirrhotic morphology and congestive hepatopathy Cholecystectomy done decades ago Will need GI follow up OP Dispo: needs SNF placement. Spoke to her sisters (Dilia and Mounika) yesterday at length. They hadsome very understandable concerns about their sister going to a SNF but they are now agreeable. They'd like to review some facilities near their home this weekend. Discussed patient medically ready for discharge and I anticipated discharge early next week to which they expressed understanding. * Assessment & Plan Note - Vamsi Rocha MD - 06/02/2025 7:46 AM CDT Associated Problem(s): Transaminitis Liver ultrasound; 05/17 with cirrhotic morphology and congestive hepatopathy Cholecystectomy done decades ago Will need GI follow up OP Dispo: needs SNF placement. Spoke to her sisters (Dilia and Mounika) yesterday at length. They hadsome very understandable concerns about their sister going to a SNF but they are now agreeable. They'd like to review some facilities near their home this weekend. Discussed patient medically ready for discharge and I anticipated discharge early next week to which they expressed understanding. * Assessment & Plan Note - Vamsi Rocha MD - 06/01/2025 8:46 AM CDT Associated Problem(s): Transaminitis Liver ultrasound; 05/17 with cirrhotic morphology and congestive hepatopathy Cholecystectomy done decades ago Will need GI follow up OP Dispo: needs SNF placement * Assessment & Plan Note - Vamsi Rocha MD - 06/01/2025 8:46 AM CDT Associated Problem(s): Hyperkalemia - Pt hyperkalemic on arrival, shifted with insulin + dextrose and started on lokelma - Noted to be HypoNa, though baseline may be close to 130-132 - Likely hypervolemic hyponatremia iso cardiogenic shock and ADHF PLAN: - Replete lytes as needed * Assessment & Plan Note - Vamsi Rocha MD - 06/01/2025 8:46 AM CDT Associated Problem(s): Hyponatremia - Pt hyperkalemic on arrival, shifted with insulin + dextrose and started on lokelma - Noted to be HypoNa, though baseline may be close to 130-132 - Likely hypervolemic hyponatremia iso cardiogenic shock and ADHF PLAN: - Replete lytes as needed * Assessment & Plan Note - Vamsi Rocha MD - 06/01/2025 8:46 AM CDT Associated Problem(s): Obesity with serious comorbidity, unspecified class, unspecified obesity type - per notes from 04/19, home regimen is 17U lantus in AM, 12U TID AC + slide 0-10U - Noted to have hypoglycemic episode on M - BG has been ranging 220-300s on 05/20 PLAN: - Cont SSI 0-18U, accuchecks with meals - Cont lantus 5U qhs * Assessment & Plan Note - Vamsi Rocha MD - 06/01/2025 8:46 AM CDT Associated Problem(s): Type 2 diabetes mellitus, without long-term current use of insulin (HCC) - per notes from 04/19, home regimen is 17U lantus in AM, 12U TID AC + slide 0-10U - Noted to have hypoglycemic episode on 7AM - BG has been ranging 220-300s on 05/20 PLAN: - Cont SSI 0-18U, accuchecks with meals - Cont lantus 5U qhs * Assessment & Plan Note - Vamsi Rocha MD - 06/01/2025 8:46 AM CDT Associated Problem(s): Agitation - Pt noted to be obtunded at 4AM on 05/17, was given ativan earlier In the night for agitation - EEG with generalized slowing - sedation weaned off on M - CT head 05/20 - no acute abnormalities - At baseline, pt responds to her name and is able to express what she wants/doesn't want per sister. Has very limited understanding of her medical conditions iso TBI; sisters administer her meds, and otherwise patient reportedly does ADLs. non compliant with cardiac diet at home, and has numerous admissions for HF exacerbations in past - Avoid benzos as possible * Assessment & Plan Note - Vamsi Rocha MD - 06/01/2025 8:46 AM CDT Associated Problem(s): Demand ischemia (HCC) - TTE with EF of 25% on 05/27/25 Patient's blood pressure is staying soft Had recent cardiogenic/mixed shock Not volume overloaded, discontinued Bumex - Empagliflozin 10mg Continue metop succ and entresto -regarding severe TR: not to have inpt intervention but will need outpt f/u. Pt was supposed to follow with [facility], advise to keep that appointment but will refer to [facility]ology in case - Resumed home cefadroxil; cont on cefadroxil 500mg BID on discharge * Assessment & Plan Note - Vamsi Rocha MD - 06/01/2025 8:46 AM CDT Associated Problem(s): Acute on chronic congestive heart failure, unspecified heart failure type (HCC) - TTE with EF of 25% on 05/27/25 Patient's blood pressure is staying soft Had recent cardiogenic/mixed shock Not volume overloaded, discontinued Bumex - Empagliflozin 10mg Continue metop succ and entresto -regarding severe TR: not to have inpt intervention but will need outpt f/u. Pt was supposed to follow with [facility], advise to keep that appointment but will refer to [facility] in case - Resumed home cefadroxil; cont on cefadroxil 500mg BID on discharge * Assessment & Plan Note - Vamsi Rocha MD - 06/01/2025 8:46 AM CDT Associated Problem(s): History of endocarditis - TTE with EF of 25% on 05/27/25 Patient's blood pressure is staying soft Had recent cardiogenic/mixed shock Not volume overloaded, discontinued Bumex - Empagliflozin 10mg Continue metop succ and entresto -regarding severe TR: not to have inpt intervention but will need outpt f/u. Pt was supposed to follow with [facility], advise to keep that appointment but will refer to [facility] in case - Resumed home cefadroxil; cont on cefadroxil 500mg BID on discharge * Assessment & Plan Note - Vamsi Rocha MD - 06/01/2025 8:46 AM CDT Associated Problem(s): Atrial fibrillation (HCC) - Cont home xarelto, had not previously been getting due to agitation - RVR resolved after digoxin load - Unable to do DCCV d/t LA thrombus PLAN: - Cont xarelto - Will need repeat CHANCE in 3 months on discharge to reassess thrombus * Assessment & Plan Note - Vamsi Rocha MD - 06/01/2025 8:46 AM CDT Associated Problem(s): Prolonged Q-T interval on ECG - Cont home xarelto, had not previously been getting due to agitation - RVR resolved after digoxin load - Unable to do DCCV d/t LA thrombus PLAN: - Cont xarelto - Will need repeat CHANCE in 3 months on discharge to reassess thrombus * Assessment & Plan Note - Vamsi Rocha MD - 06/01/2025 8:46 AM CDT Associated Problem(s): Hypothyroidism - Cont home levothyroxine * Assessment & Plan Note - Vamsi Rocha MD - 06/01/2025 8:46 AM CDT Associated Problem(s): Acute kidney injury - BUN increasing, will ctm RFP. Likely iso hypovolemia from diuresis. Diuretics held for now * Assessment & Plan Note - Vamsi Rocha MD - 06/01/2025 8:46 AM CDT Associated Problem(s): Shortness of breath Resolved * Assessment & Plan Note - Vamsi Rocha MD - 06/01/2025 8:46 AM CDT Associated Problem(s): Pericardial effusion (HCC) Resolved * Assessment & Plan Note - Vamsi Rocha MD - 06/01/2025 8:46 AM CDT Associated Problem(s): Hyperbilirubinemia Liver ultrasound; 05/17 with cirrhotic morphology and congestive hepatopathy Cholecystectomy done decades ago Will need GI follow up OP Dispo: needs SNF placement * Assessment & Plan Note - Jennifer Burton MD - 05/31/2025 2:41 PM CDTAssociated Problem(s): Agitation - Pt noted to be obtunded at 4AM on 05/17, was given ativan earlier In the night for agitation - EEG with generalized slowing - sedation weaned off on M - CT head 05/20 - no acute abnormalities - At baseline, pt responds to her name and is able to express what she wants/doesn't want per sister. Has very limited understanding of her medical conditions iso TBI; sisters administer her meds, and otherwise patient reportedly does ADLs. non compliant with cardiac diet at home, and has numerous admissions for HF exacerbations in past - AVOID BENZOS * Assessment & Plan Note - Jennifer Burton MD - 05/31/2025 2:41 PM CDTAssociated Problem(s): Demand ischemia (HCC) - TTE with EF of 25% on 05/27/25 Patient's blood pressure is staying soft Had recent cardiogenic/mixed shock Not volume overloaded, discontinued Bumex - Empagliflozin 10mg Continue metop succ and entresto -regarding severe TR: not to have inpt intervention but will need outpt f/u. Pt was supposed to follow with [facility], advise to keep that appointment but will refer to [facility] in case - Resumed home cefadroxil; cont on cefadroxil 500mg BID on discharge * Assessment & Plan Note - Jennifer Burton MD - 05/31/2025 2:41 PM CDTAssociated Problem(s): Acute on chronic congestive heart failure, unspecified heart failure type (HCC) - TTE with EF of 25% on 05/27/25 Patient's blood pressure is staying soft Had recent cardiogenic/mixed shock Not volume overloaded, discontinued Bumex - Empagliflozin 10mg Continue metop succ and entresto -regarding severe TR: not to have inpt intervention but will need outpt f/u. Pt was supposed to follow with [facility], advise to keep that appointment but will refer to [facility] in case - Resumed home cefadroxil; cont on cefadroxil 500mg BID on discharge * Assessment & Plan Note - Jennifer Burton MD - 05/31/2025 2:41 PM CDTAssociated Problem(s): History of endocarditis - TTE with EF of 25% on 05/27/25 Patient's blood pressure is staying soft Had recent cardiogenic/mixed shock Not volume overloaded, discontinued Bumex - Empagliflozin 10mg Continue metop succ and entresto -regarding severe TR: not to have inpt intervention but will need outpt f/u. Pt was supposed to follow with [facility], advise to keep that appointment but will refer to [facility] in case - Resumed home cefadroxil; cont on cefadroxil 500mg BID on discharge * Assessment & Plan Note - Jennifer Burton MD - 05/31/2025 2:41 PM CDTAssociated Problem(s): Atrial fibrillation (HCC) - Cont home xarelto, had not previously been getting due to agitation - RVR resolved after digoxin load - Unable to do DCCV d/t LA thrombus PLAN: - Cont xarelto - Will need repeat CHANCE in 3 months on discharge to reassess thrombus * Assessment & Plan Note - Jennifer Burton MD - 05/31/2025 2:41 PM CDTAssociated Problem(s): Prolonged Q-T interval on ECG - Cont home xarelto, had not previously been getting due to agitation - RVR resolved after digoxin load - Unable to do DCCV d/t LA thrombus PLAN: - Cont xarelto - Will need repeat CHANCE in 3 months on discharge to reassess thrombus * Assessment & Plan Note - Jennifer Burton MD - 05/31/2025 2:41 PM CDTAssociated Problem(s): Shortness of breath Resolved * Assessment & Plan Note - Jennifer Burton MD - 05/31/2025 2:41 PM CDTAssociated Problem(s): Pericardial effusion (HCC) Resolved * Assessment & Plan Note - Jennifer Burton MD - 05/31/2025 2:41 PM CDTAssociated Problem(s): Hyperbilirubinemia Liver ultrasound; 8 with cirrhotic morphology and congestive hepatopathy Cholecystectomy done decades ago Will need GI follow up OP * Assessment & Plan Note - Jennifer Burton MD - 05/31/2025 2:41 PM CDTAssociated Problem(s): Transaminitis Liver ultrasound; 8/8 with cirrhotic morphology and congestive hepatopathy Cholecystectomy done decades ago Will need GI follow up OP * Assessment & Plan Note - Jennifer Burton MD - 05/31/2025 7:32 AM CDTAssociated Problem(s): Acute kidney injury - BUN increasing, will ctm RFP. Likely iso hypovolemia from diuresis. Diuretic holiday 05/26 * Assessment & Plan Note - Jennifer Burton MD - 05/31/2025 7:32 AM CDTAssociated Problem(s): Hyperkalemia - Pt hyperkalemic on arrival, shifted with insulin + dextrose and started on lokelma - Noted to be HypoNa, though baseline may be close to 130-132 - Likely hypervolemic hyponatremia iso cardiogenic shock and ADHF PLAN: - Replete lytes as needed * Assessment & Plan Note - Jennifer Burton MD - 05/31/2025 7:32 AM CDTAssociated Problem(s): Hyponatremia - Pt hyperkalemic on arrival, shifted with insulin + dextrose and started on lokelma - Noted to be HypoNa, though baseline may be close to 130-132 - Likely hypervolemic hyponatremia iso cardiogenic shock and ADHF PLAN: - Replete lytes as needed * Assessment & Plan Note - Jennifer Burton MD - 05/31/2025 7:32 AM CDTAssociated Problem(s): Obesity with serious comorbidity, unspecified class, unspecified obesity type - per notes from 04/19, home regimen is 17U lantus in AM, 12U TID AC + slide 0-10U - Noted to have hypoglycemic episode on M - BG has been ranging 220-300s on 05/20 PLAN: - Cont SSI 0-18U, accuchecks with meals - Cont lantus 5U qhs * Assessment & Plan Note - Jennifer Burton MD - 05/31/2025 7:32 AM CDTAssociated Problem(s): Type 2 diabetes mellitus, without long-term current use of insulin (HCC) - per notes from 04/19, home regimen is 17U lantus in AM, 12U TID AC + slide 0-10U - Noted to have hypoglycemic episode on M - BG has been ranging 220-300s on 05/20 PLAN: - Cont SSI 0-18U, accuchecks with meals - Cont lantus 5U qhs * Assessment & Plan Note - Jennifer Burton MD - 05/31/2025 7:32 AM CDTAssociated Problem(s): Hypothyroidism - Cont home levothyroxine * Assessment & Plan Note - Mariah Yadav MD - 05/30/2025 4:17 PM CDTAssociated Problem(s): Hyperbilirubinemia TB elevated but decreasing AST only mildly elevated Liver ultrasound; 8/8 with cirrhotic morphology and congestive hepatopathy Cholecystectomy done decades ago Will need GI follow up OP * Assessment & Plan Note - Mariah Yadav MD - 05/30/2025 4:17 PM CDTAssociated Problem(s): Transaminitis TB elevated but decreasing AST only mildly elevated Liver ultrasound; 8/8 with cirrhotic morphology and congestive hepatopathy Cholecystectomy done decades ago Will need GI follow up OP * Assessment & Plan Note - Mariah Yadav MD - 05/30/2025 8:51 AM CDTAssociated Problem(s): Prolonged Q-T interval on ECG - Cont home xarelto, had not previously been getting due to agitation - RVR resolved after digoxin load - Unable to do DCCV d/t LA thrombus PLAN: - Cont xarelto - metop succ 100mg qdaily - Will need repeat CHANCE in 3 months on discharge to reassess thrombus * Assessment & Plan Note - Mariah Yadav MD - 05/30/2025 8:51 AM CDTAssociated Problem(s): Hypothyroidism - Cont home levothyroxine * Assessment & Plan Note - Mariah Yadav MD - 05/30/2025 8:51 AM CDTAssociated Problem(s): Acute kidney injury - BUN increasing, will ctm RFP. Likely iso hypovolemia from diuresis. Diuretic holiday 05/26 * Assessment & Plan Note - Mariah Yadav MD - 05/30/2025 8:51 AM CDTAssociated Problem(s): Shortness of breath Pt had to be mechanically intubated on 05/17 AM for c/f airway protection PLAN: - Extubated 05/24, passed swallow eval - Pulmonary toilet * Assessment & Plan Note - Mariah Yadav MD - 05/30/2025 8:51 AM CDTAssociated Problem(s): Pericardial effusion (HCC) Pt had to be mechanically intubated on 05/17 AM for c/f airway protection PLAN: - Extubated 05/24, passed swallow eval - Pulmonary toilet * Assessment & Plan Note - Mariah Yadav MD - 05/30/2025 8:51 AM CDTAssociated Problem(s): Hyperkalemia - Pt hyperkalemic on arrival, shifted with insulin + dextrose and started on lokelma - Noted to be HypoNa, though baseline may be close to 130-132 - Likely hypervolemic hyponatremia iso cardiogenic shock and ADHF PLAN: - Replete lytes as needed * Assessment & Plan Note - Mariah Yadav MD - 05/30/2025 8:51 AM CDTAssociated Problem(s): Hyponatremia - Pt hyperkalemic on arrival, shifted with insulin + dextrose and started on lokelma - Noted to be HypoNa, though baseline may be close to 130-132 - Likely hypervolemic hyponatremia iso cardiogenic shock and ADHF PLAN: - Replete lytes as needed * Assessment & Plan Note - Mariah Yadav MD - 05/30/2025 8:51 AM CDTAssociated Problem(s): Obesity with serious comorbidity, unspecified class, unspecified obesity type - per notes from 04/19, home regimen is 17U lantus in AM, 12U TID AC + slide 0-10U - Noted to have hypoglycemic episode on M - BG has been ranging 220-300s on 05/20 PLAN: - Cont SSI 0-18U, accuchecks with meals - Cont lantus 5U qhs * Assessment & Plan Note - Mariah Yadav MD - 05/30/2025 8:51 AM CDTAssociated Problem(s): Type 2 diabetes mellitus, without long-term current use of insulin (HCC) - per notes from 04/19, home regimen is 17U lantus in AM, 12U TID AC + slide 0-10U - Noted to have hypoglycemic episode on M - BG has been ranging 220-300s on 05/20 PLAN: - Cont SSI 0-18U, accuchecks with meals - Cont lantus 5U qhs * Assessment & Plan Note - Mariah Yadav MD - 05/30/2025 8:51 AM CDTAssociated Problem(s): Agitation - Pt noted to be obtunded at 4AM on 05/17, was given ativan earlier In the night for agitation - EEG with generalized slowing - sedation weaned off on M - CT head 05/20 - no acute abnormalities - At baseline, pt responds to her name and is able to express what she wants/doesn't want per sister. Has very limited understanding of her medical conditions iso TBI; sisters administer her meds, and otherwise patient reportedly does ADLs. non compliant with cardiac diet at home, and has numerous admissions for HF exacerbations in past PLAN: - AVOID BENZOS - Palliative consulted for decision making and complex family situation, following peripherally * Assessment & Plan Note - Mariah Yadav MD - 05/30/2025 8:51 AM CDTAssociated Problem(s): Demand ischemia (HCC) - TTE with EF of 25% on 05/27/25. - Furosemide IV TID given on day of admission - metop and aldactone held on admission as pt not taking oral meds - Manas removed - Levo discontinued - diuresed with bumex 4mg TID earlier in ICU amdission - Pt on cefadroxil 100mg BID for chronic ppx - TTE does not show any vegetations, though noted to have L atrial mass on CCTA 07/2024 - Became hypothermic on 05/17 - Infectious w/u negative so far (CXR, UA, Bcx) - 5d course cefepime finished on 05/22 PLAN: - Bumex 0.5mg BID; continue on discharge - Empagliflozin 10mg, metop succ 100mg qd, entresto 12-13, aldactone 12.5 -regarding severe TR: not to have inpt intervention but will need outpt f/u. Pt was supposed to follow with [facility], advise to keep that appointment but will refer to [facility] in case - Resumed home cefadroxil; cont on cefadroxil 500mg BID on discharge * Assessment & Plan Note - Mariah Yadav MD - 05/30/2025 8:51 AM CDTAssociated Problem(s): Acute on chronic congestive heart failure, unspecified heart failure type (HCC) - TTE with EF of 25% on 05/27/25. - Furosemide IV TID given on day of admission - metop and aldactone held on admission as pt not taking oral meds - Manas removed - Levo discontinued - diuresed with bumex 4mg TID earlier in ICU amdission - Pt on cefadroxil 100mg BID for chronic ppx - TTE does not show any vegetations, though noted to have L atrial mass on CCTA 07/2024 - Became hypothermic on 05/17 - Infectious w/u negative so far (CXR, UA, Bcx) - 5d course cefepime finished on 05/22 PLAN: - Bumex 0.5mg BID; continue on discharge - Empagliflozin 10mg, metop succ 100mg qd, entresto 12-13, aldactone 12.5 -regarding severe TR: not to have inpt intervention but will need outpt f/u. Pt was supposed to follow with [facility], advise to keep that appointment but will refer to [facility] in case - Resumed home cefadroxil; cont on cefadroxil 500mg BID on discharge * Assessment & Plan Note - Mariah Yadav MD - 05/30/2025 8:51 AM CDTAssociated Problem(s): History of endocarditis - TTE with EF of 25% on 05/27/25. - Furosemide IV TID given on day of admission - metop and aldactone held on admission as pt not taking oral meds - Manas removed - Levo discontinued - diuresed with bumex 4mg TID earlier in ICU amdission - Pt on cefadroxil 100mg BID for chronic ppx - TTE does not show any vegetations, though noted to have L atrial mass on CCTA 07/2024 - Became hypothermic on 05/17 - Infectious w/u negative so far (CXR, UA, Bcx) - 5d course cefepime finished on 05/22 PLAN: - Bumex 0.5mg BID; continue on discharge - Empagliflozin 10mg, metop succ 100mg qd, entresto 12-13, aldactone 12.5 -regarding severe TR: not to have inpt intervention but will need outpt f/u. Pt was supposed to follow with [facility], advise to keep that appointment but will refer to [facility] in case - Resumed home cefadroxil; cont on cefadroxil 500mg BID on discharge * Assessment & Plan Note - Mariah Yadav MD - 05/30/2025 8:51 AM CDTAssociated Problem(s): Atrial fibrillation (HCC) - Cont home xarelto, had not previously been getting due to agitation - RVR resolved after digoxin load - Unable to do DCCV d/t LA thrombus PLAN: - Cont xarelto - metop succ 100mg qdaily - Will need repeat CHANCE in 3 months on discharge to reassess thrombus * Assessment & Plan Note - Debi Joseph MD - 05/29/2025 3:11 PM CDTAssociated Problem(s): Acute on chronic congestive heart failure, unspecified heart failure type (HCC) - TTE with EF of 25% on 05/27/25. - Furosemide IV TID given on day of admission - metop and aldactone held on admission as pt not taking oral meds - Manas removed - Levo discontinued - diuresed with bumex 4mg TID earlier in ICU amdission - Pt on cefadroxil 100mg BID for chronic ppx - TTE does not show any vegetations, though noted to have L atrial mass on CCTA 07/2024 - Became hypothermic on 05/17 - Infectious w/u negative so far (CXR, UA, Bcx) - 5d course cefepime finished on 05/22 PLAN: - Bumex 0.5mg BID; continue on discharge - Empagliflozin 10mg, metop succ 100mg qd, entresto 12-13, aldactone 12.5 -regarding severe TR: not to have inpt intervention but will need outpt f/u. Pt was supposed to follow with [facility], advise to keep that appointment but will refer to [facility] in case - Resumed home cefadroxil; cont on cefadroxil 500mg BID on discharge * Assessment & Plan Note - Debi Joseph MD - 05/29/2025 3:11 PM CDTAssociated Problem(s): Demand ischemia (HCC) - TTE with EF of 25% on 05/27/25. - Furosemide IV TID given on day of admission - metop and aldactone held on admission as pt not taking oral meds - Manas removed - Levo discontinued - diuresed with bumex 4mg TID earlier in ICU amdission - Pt on cefadroxil 100mg BID for chronic ppx - TTE does not show any vegetations, though noted to have L atrial mass on CCTA 07/2024 - Became hypothermic on 05/17 - Infectious w/u negative so far (CXR, UA, Bcx) - 5d course cefepime finished on 05/22 PLAN: - Bumex 0.5mg BID; continue on discharge - Empagliflozin 10mg, metop succ 100mg qd, entresto 12-, aldactone 12.5 -regarding severe TR: not to have inpt intervention but will need outpt f/u. Pt was supposed to follow with [facility], advise to keep that appointment but will refer to [facility] in case - Resumed home cefadroxil; cont on cefadroxil 500mg BID on discharge * Assessment & Plan Note - Debi Joseph MD - 05/29/2025 3:11 PM CDTAssociated Problem(s): Agitation - Pt noted to be obtunded at 4AM on 05/17, was given ativan earlier In the night for agitation - EEG with generalized slowing - sedation weaned off on M - CT head 05/20 - no acute abnormalities - At baseline, pt responds to her name and is able to express what she wants/doesn't want per sister. Has very limited understanding of her medical conditions iso TBI; sisters administer her meds, and otherwise patient reportedly does ADLs. non compliant with cardiac diet at home, and has numerous admissions for HF exacerbations in past PLAN: - AVOID BENZOS - Palliative consulted for decision making and complex family situation, following peripherally * Assessment & Plan Note - Debi Joseph MD - 05/29/2025 3:11 PM CDTAssociated Problem(s): Atrial fibrillation (HCC) - Cont home xarelto, had not previously been getting due to agitation - RVR resolved after digoxin load - Unable to do DCCV d/t LA thrombus PLAN: - Cont xarelto - metop succ 100mg qdaily - Will need repeat [facility] in 3 months on discharge to reassess thrombus * Assessment & Plan Note - Debi Joseph MD - 05/29/2025 3:11 PM CDTAssociated Problem(s): Type 2 diabetes mellitus, without long-term current use of insulin (HCC) - per notes from 04/19, home regimen is 17U lantus in AM, 12U TID AC + slide 0-10U - Noted to have hypoglycemic episode on M - BG has been ranging 220-300s on 05/20 PLAN: - Cont SSI 0-18U, accuchecks with meals - Cont lantus 5U qhs * Assessment & Plan Note - Debi Joseph MD - 05/29/2025 3:11 PM CDTAssociated Problem(s): Hyperkalemia - Pt hyperkalemic on arrival, shifted with insulin + dextrose and started on lokelma - Noted to be HypoNa, though baseline may be close to 130-132 - Likely hypervolemic hyponatremia iso cardiogenic shock and ADHF PLAN: - Replete lytes as needed * Assessment & Plan Note - Debi Joseph MD - 05/29/2025 3:11 PM CDTAssociated Problem(s): Hyponatremia - Pt hyperkalemic on arrival, shifted with insulin + dextrose and started on lokelma - Noted to be HypoNa, though baseline may be close to 130-132 - Likely hypervolemic hyponatremia iso cardiogenic shock and ADHF PLAN: - Replete lytes as needed * Assessment & Plan Note - Debi Joseph MD - 05/29/2025 3:11 PM CDTAssociated Problem(s): Obesity with serious comorbidity, unspecified class, unspecified obesity type - per notes from 04/19, home regimen is 17U lantus in AM, 12U TID AC + slide 0-10U - Noted to have hypoglycemic episode on M - BG has been ranging 220-300s on 05/20 PLAN: - Cont SSI 0-18U, accuchecks with meals - Cont lantus 5U qhs * Assessment & Plan Note - Debi Joseph MD - 05/29/2025 3:11 PM CDTAssociated Problem(s): History of endocarditis - TTE with EF of 25% on 05/27/25. - Furosemide IV TID given on day of admission - metop and aldactone held on admission as pt not taking oral meds - Manas removed - Levo discontinued - diuresed with bumex 4mg TID earlier in ICU amdission - Pt on cefadroxil 100mg BID for chronic ppx - TTE does not show any vegetations, though noted to have L atrial mass on CCTA 07/2024 - Became hypothermic on 05/17 - Infectious w/u negative so far (CXR, UA, Bcx) - 5d course cefepime finished on 05/22 PLAN: - Bumex 0.5mg BID; continue on discharge - Empagliflozin 10mg, metop succ 100mg qd, entresto 12-13, aldactone 12.5 -regarding severe TR: not to have inpt intervention but will need outpt f/u. Pt was supposed to follow with [facility], advise to keep that appointment but will refer to [facility] cardiology in case - Resumed home cefadroxil; cont on cefadroxil 500mg BID on discharge * Assessment & Plan Note - Debi Joseph MD - 05/29/2025 3:11 PM CDTAssociated Problem(s): Hypothyroidism - Cont home levothyroxine * Assessment & Plan Note - Debi Joseph MD - 05/29/2025 3:11 PM CDTAssociated Problem(s): Acute kidney injury - BUN increasing, will ctm RFP. Likely iso hypovolemia from diuresis. Diuretic holiday 05/26 * Assessment & Plan Note - Debi Joseph MD - 05/29/2025 3:11 PM CDTAssociated Problem(s): Shortness of breath Pt had to be mechanically intubated on 8/8 AM for c/f airway protection PLAN: - Extubated 05/24, passed swallow eval - Pulmonary toilet * Assessment & Plan Note - Debi Joseph MD - 05/29/2025 3:11 PM CDTAssociated Problem(s): Pericardial effusion (HCC) Pt had to be mechanically intubated on 88 AM for c/f airway protection PLAN: - Extubated 05/24, passed swallow eval - Pulmonary toilet * Assessment & Plan Note - Debi Joseph MD - 05/29/2025 3:11 PM CDTAssociated Problem(s): Prolonged Q-T interval on ECG - Cont home xarelto, had not previously been getting due to agitation - RVR resolved after digoxin load - Unable to do DCCV d/t LA thrombus PLAN: - Cont xarelto - metop succ 100mg qdaily - Will need repeat [facility] in 3 months on discharge to reassess thrombus * Assessment & Plan Note - Adryan Shabazz MD - 05/16/2025 1:20 PM CDTAssociated Problem(s): Acute on chronic congestive heart failure, unspecified heart failure type (HCC) - Last TTE 02/07/2025 with EF 25%, BNP today 2200 - follow up on repeat TTE - daily weighs, strict I & O - furosemide 80mg IV tid (home dose with 80mg PO bid) - LAMBSKIN TRIMMER malou and metop succ - cardiac diet with fluid restriction - bid electrolyte monitoring - telemetry monitoring - cardiology consulted, [facility] but family reported it was denied due to insurance? * Assessment & Plan Note - Adryan Shabazz MD - 05/16/2025 1:20 PM CDTAssociated Problem(s): Hyperkalemia - suspect is related to MARK, was shifted and given insulin + dextrose and patiromer in the ED - diuresing as above - [facility] - telemtry * Assessment & Plan Note - Adryan Shabazz MD - 05/16/2025 1:20 PM CDTAssociated Problem(s): Hyponatremia - most likely hypervolemic hyponatremia - urine studies (urine NA and urine osm) - monitor for worsening of mentation - q6 hour lab monitiring Patient likely has hypervolemic hyponatremia. Earlier in AM, Na declined to 121. Mentation appearedto worse. Consideration of hypertonic saline. [facility] contacted and ICU. ICU accepted patient howeverit was noted that patient had not received AM dose of lasix. Cancelled ICU transfer, will aggressively diurese and more frequent labs to ensure Na continues to improve. Family, windows technical specialist, nurse, and r nicd aware of current treatment plans. * Assessment & Plan Note - Adryan Shabazz MD - 05/16/2025 1:20 PM CDTAssociated Problem(s): Demand ischemia (HCC) - Acute decompensated heart * Assessment & Plan Note - Adryan Shabazz MD - 05/16/2025 1:20 PM CDTAssociated Problem(s): Agitation - patient awake and communicative, but difficulty recalling details of her medical history - at risk for delirium, will attempt to reorient I develops delirium, avoid haldol given QT prolongation * Assessment & Plan Note - Adryan Shabazz MD - 05/16/2025 1:20 PM CDTAssociated Problem(s): Atrial fibrillation (HCC) - LAMBSKIN TR[employer]MER rivaroxaban, 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 * Assessment & Plan Note - Adryan Shabazz MD - 05/16/2025 1:20 PM CDTAssociated Problem(s): Type 2 diabetes mellitus, without long-term current use of insulin (HCC) - hypoglycemic protocols - DC SSI given hypoglycemia * Assessment & Plan Note - Adryan Shabazz MD - 05/16/2025 7:26 AM CDTAssociated Problem(s): Pericardial effusion (HCC) - no hypotension to suggest tamponade - may be related to overall hypervolemic state - diuresis as above, on telemetry * Assessment & Plan Note - Adryan Shabazz MD - 05/16/2025 7:26 AM CDTAssociated Problem(s): Hyperbilirubinemia - likely related to congestive hepatopathy from decomp heart failure. Fractionated in ED, predominately direct - daily CMP to monitor * Assessment & Plan Note - Adryan Shabazz MD - 05/16/2025 7:26 AM CDTAssociated Problem(s): Transaminitis - 2/2 congestive hepathopathy * Assessment & Plan Note - Adryan Shabazz MD - 05/16/2025 7:26 AM CDTAssociated Problem(s): Elevated alkaline phosphatase level - 2/2 congestive hepatopathy * Assessment & Plan Note - Adryan Shabazz MD - 05/16/2025 7:26 AM CDTAssociated Problem(s): Obesity with serious comorbidity, unspecified class, unspecified obesity type - outpatient follow up * Assessment & Plan Note - Adryan Shabazz MD - 05/16/2025 7:26 AM CDTAssociated Problem(s): History of endocarditis - 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 - on technician terminal and repeater suppressive abx therapy with cefadroxil * Assessment & Plan Note - Adryan Shabazz MD - 05/16/2025 7:26 AM CDTAssociated Problem(s): Hypothyroidism - LAMBSKIN TRIMMER levothyroxine * Assessment & Plan Note - Adryan Shabazz MD - 05/16/2025 7:26 AM CDTAssociated Problem(s): Prolonged Q-T interval on ECG - likely related to electrolyte abnormalities and decompensated heart failre - avoiding QT prolonging meds * Assessment & Plan Note - Adryan Shabazz MD - 05/16/2025 7:26 AM CDTAssociated Problem(s): Acute kidney injury - due to renal congestion from hypervolemia - diuresing, avoiding nephrotoxins - obtaining urine lytes * Assessment & Plan Note - Carline Darby DO - 05/15/2025 11:22 PM CDTAssociated Problem(s): Acute on chronic congestive heart failure, unspecified heart failure type (HCC) - Last TTE 02/07/2025 with EF 25%, BNP today 2200 - currently deocompensated, will obtain repeat TTE - daily weighs, strict I & O - furosemide 80mg IV tid (home dose with 80mg PO bid) - LAMBSKIN TRIMMER malou and metop succ - cardiac diet with fluid restriction - bid electrolyte monitoring - telemetry monitoring * Assessment & Plan Note - Carline Darby DO - 05/15/2025 11:22 PM CDTAssociated Problem(s): Demand ischemia (HCC) - Acute decompensated heart * Assessment & Plan Note - Carline Darby DO - 05/15/2025 11:22 PM CDTAssociated Problem(s): Agitation - patient awake and communicative, but difficulty recalling details of her medical history - at risk for delirium, will attempt to reorient I develops delirium, avoid haldol given QT prolongation * Assessment & Plan Note - Carline Darby DO - 05/15/2025 11:22 PM CDTAssociated Problem(s): Atrial fibrillation (HCC) - LAMBSKIN TRIMMER rivaroxaban, 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 * Assessment & Plan Note - Carline Darby DO - 05/15/2025 11:22 PM CDTAssociated Problem(s): Type 2 diabetes mellitus, without long-term current use of insulin (HCC) - q6h ssi, hypoglycemic protocols * Assessment & Plan Note - Carline Darby DO - 05/15/2025 11:15 PM CDTAssociated Problem(s): Obesity with serious comorbidity, unspecified class, unspecified obesity type - outpatient follow up * Assessment & Plan Note - Carline Darby DO - 05/15/2025 11:00 PM CDTAssociated Problem(s): Hyponatremia - most likely hypervolemic hyponatremia - rechecking at 2300, if uprending then q12 monitoring - urine studies (urine NA and urine osm) * Assessment & Plan Note - Carline Darby DO - 05/15/2025 11:00 PM CDTAssociated Problem(s): Acute kidney injury - due to renal congestion from hypervolemia - diuresing, avoiding nephrotoxins - obtaining urine lytes * Assessment & Plan Note - Carline Darby DO - 05/15/2025 10:56 PM CDTAssociated Problem(s): Hyperkalemia - suspect is related to MARK, was shifted and given insulin + dextrose and patiromer in the ED - diuresing as above - recheck 4 hours post shifting, 2300 on 05/15 - lokelma tid with meals * Assessment & Plan Note - Carline Darby DO - 05/15/2025 10:56 PM CDTAssociated Problem(s): Hyperbilirubinemia - likely related to congestive hepatopathy from decomp heart failure. 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 - on prison suppressive abx therapy with cefadroxil * Assessment & Plan Note - Carline Darby DO - 05/15/2025 10:56 PM CDTAssociated Problem(s): Hypothyroidism - LAMBSKIN TRIMMER levothyroxine * Assessment & Plan Note - Carline Darby DO - 05/15/2025 10:56 PM CDTAssociated Problem(s): Prolonged Q-T interval on ECG - likely related to electrolyte abnormalities and decompensated heart failre - avoiding QT prolonging meds * Assessment & Plan Note - Carline Darby DO - 05/15/2025 10:56 PM CDTAssociated Problem(s): Pericardial effusion (HCC) - no hypotension to suggest tamponade - may be related to overall hypervolemic state - diuresis as above, on telemetry documented in this encounter Admitting Diagnoses Diagnosis Shortness of breath Other shock (HCC) documented in this encounter Administered Medications Inactive Administered Medications - up to 3 most recent administrations Medication Order MAR Action Action Date Dose Rate Site 0.9% NaCl injection 1-10 mL 1-10 mL, Intracatheter, PRN, Other, peripheral line flush, Starting on Tue05/15/25 at 1412, Until Rowena 06/06/25 at 1825, Flush peripheral IV catheter with 1-10 mL of normal saline before and after medications and prn to clear blood from the line or to verify patency. 0.9% NaCl injection 3 mL 3 mL, Intracatheter, EVERY 8 HOURS, First dose on Tue05/15/25 at 1445, Until Discontinued, Flush peripheral IV catheter with 3 mL of normal saline every 8 hours. $ Given 06/05/2025 12:34 PM CDT 3 mL $ Given 06/04/2025 12:53 PM CDT 3 mL $ Given 06/03/2025 8:22 PM CDT 3 mL acetaminophen (Tylenol) tablet 500 mg 500 mg, Oral, EVERY 6 HOURS PRN, Moderate Pain, Mild Pain, Starting on Tue05/15/25 at 2204, Until Rowena 06/06/25 at 1825, Patient preference for lesser PRN pain meds may be honored when the patient requests a less strong medication, a lower dose, or a less intrusive route of administration when the lesser drug, dose and route have been ordered for the patient. This patient request must be documented in the MAR. If both oral and IV options are ordered for the same pain severity, give oral first unless patient cannot tolerate oral intake $ Given 06/03/2025 8:51 A M CDT 500 mg $ Given 06/02/2025 8:57 PM CDT 500 mg $ Given 06/01/2025 8:43 PM CDT 500 mg acetaminophen (Tylenol) tablet 650 mg 650 mg, Oral, NOW, 1 dose, On Tue05/15/25 at 2015, Patient preference for lesser PRN pain meds may be honored when the patient requests a less strong medication, a lower dose, or a less intrusive route of administration when the lesser drug, dose and route have been ordered for the patient. This patient request must be documented in the MAR. If both oral and IV options are ordered for the same pain severity, give oral first unless patient cannot tolerate oral intake $ Given 05/15/2025 8:12 PM CDT 650 mg acetaZOLAMIDE (Diamox) injection 500 mg 500 mg, Intravenous, ONCE, 1 dose, On Tue05/19/25 at 1600, Dilute with 5 mL of sterile water, give IV push at rate of 100-500mg/minute $ Given 05/19/2025 4:41 PM CDT 500 mg albuterol (Proventil;Ventolin) (5 MG/ML) 0.5% nebulizer solution 15 mg 15 mg, Inhalation, NOW, 1 dose, On Tue05/15/25 at 1845, Administer over one hour $ Admin. by Other Provider 05/15/2025 7:12 PM CDT 15 mg albuterol-ipratropium (Duo-Neb) nebulizer solution 3 mL 3 mL, Inhalation, EVERY 4 HOURS, First dose on 05/19/25 at 2000, Until Discontinued $ Given 05/25/2025 4:24 AM CDT 3 mL $ Given 05/25/2025 12:35 AM CDT 3 mL $ Given 05/24/2025 9:13 PM CDT 3 mL albuterol-ipratropium (Duo-Neb) nebulizer solution 3 mL 3 mL, Inhalation, EVERY 4 HR WHILE AWAKE, [facility] at 0900, Until Discontinued $ Given 05/26/2025 9:31 AM CDT 3 mL $ Given 05/26/2025 12:31 AM CDT 3 mL $ Given 05/25/2025 6:11 PM CDT 3 mL apixaban (Eliquis) tablet 5 mg 5 mg, Oral, 2 TIMES DAILY, First dose on Tue05/26/25 at 1800, Until Discontinued $ Given 06/06/2025 9:46 AM CDT 5 mg $ Given 06/05/2025 8:06 PM CDT 5 mg $ Given 06/05/2025 8:44 AM CDT 5 mg artificial tears ophthalmic ointment Each Eye, EVERY 8 HOURS, First dose on Tue05/17/25 at 0600, Until Discontinued, Place a small strip of ointment into the eye. Wait at least 5 minutes before administering other ophthalmic medications. $ Given 05/25/2025 6:27 AM CDT $ Given 05/24/2025 8:19 PM CDT $ Given 05/24/2025 5:48 AM CDT bumetanide (Bumex) injection 4 mg 4 mg, Intravenous, 3 TIMES DAILY, First dose on Tue05/16/25 at 2100, Until Discontinued $ Given 05/18/2025 8:58 AM CDT 4 mg $ Given 05/17/2025 8:56 PM CDT 4 mg $ Given 05/17/2025 2:13 PM CDT 4 mg bumetanide (Bumex) injection 4 mg 4 mg, Intravenous, 3 TIMES DAILY, First dose (after last modification) on Tue05/18/25 at 1400, Until Discontinued $ Given 05/19/2025 9:04 AM CDT 4 mg $ Given 05/18/2025 9:49 PM CDT 4 mg $ Given 05/18/2025 2:26 PM CDT 4 mg bumetanide (Bumex) injection 4 mg 4 mg, Intravenous, DAILY, First dose (after last modification) on Tue05/20/25 at 0900, Until Discontinued, On hold since Tue05/21/2025 at 1929 until manually unheld $ Given 05/21/2025 9:02 AM CDT 4 mg $ Given 05/20/2025 8:44 AM CDT 4 mg bumetanide (Bumex) tablet 0.5 mg 0.5 mg, Oral, 2 TIMES DAILY (diuretics), First dose (after last modification) on Tue05/26/25 at 1700, Until Discontinued $ Given 05/31/2025 9:14 AM CDT 0.5 mg $ Given 05/29/2025 8:54 AM CDT 0.5 mg $ Given 05/28/2025 4:06 PM CDT 0.5 mg bumetanide (Bumex) tablet 1 mg 1 mg, Oral, 2 TIMES DAILY (diuretics), First dose on Tue05/22/25 at 1700, Until Discontinued $ Given 05/24/2025 7:43 AM CDT 1 mg $ Given 05/23/2025 4:10 PM CDT 1 mg $ Given 05/23/2025 10:47 AM CDT 1 mg bumetanide (Bumex) tablet 1 mg 1 mg, Enteral Tube, 2 TIMES DAILY (diuretics), First dose (after last modification) on Tue05/24/25 at 1700, Until Discontinued $ Given 05/26/2025 8:38 AM CDT 1 mg NG Tube $ Given 05/25/2025 5:15 PM CDT 1 mg NG Tube $ Given 05/25/2025 8:51 AM CDT 1 mg NG Tube busPIRone (Buspar) tablet 10 mg 10 mg, Oral, 2 TIMES DAILY, First dose on Tue05/15/25 at 2245, Until Discontinued $ Given 05/16/2025 8:46 PM CDT 10 mg $ Given 05/15/2025 10:49 PM CDT 10 mg busPIRone (Buspar) tablet 10 mg 10 mg, Enteral Tube, 2 TIMES DAILY, First dose (after last modification) on Tue05/17/25 at 0915, Until Discontinued $ Given 05/26/2025 8:38 AM CDT 10 mg NG Tu be $ Given 05/25/2025 9:51 PM CDT 10 mg N G Tube $ Given 05/19/2025 9:04 AM CDT 10 mg NG Tube busPIRone (Buspar) tablet 10 mg 10 mg, Oral, 2 TIMES DAILY, First dose (after last modification) on Tue05/26/25 at 2100, Until Discontinued $ Given 06/05/2025 8:05 PM CDT 10 mg $ Given 06/05/2025 8:44 AM CDT 10 mg $ Given 06/04/2025 8:51 PM CDT 10 mg calcium gluconate 1 g in 50 mL NaCl 0.675% 1 g, at 100 mL/hr, Intravenous, ONCE, 1 dose, On Tue05/16/25 at 0315 $ New Bag/Syringe 05/16/2025 3:01 AM CDT 1 g 100 mL/hr calcium gluconate 10 % injection 1 g 1 g, Intravenous, ONCE, 1 dose, On Tue05/15/25 at 1900, Administer no faster than 200 mg/minute if given IV push $ Given 05/15/2025 7:10 PM CDT 1 g cefadroxil (Duricef) capsule 1,000 mg 1,000 mg, Oral, 2 TIMES DAILY, First dose on Tue05/15/25 at 2245, Until Discontinued, Indication for anti-infective therapy: Chronic prophylaxis, On hold since Tue05/16/2025 at 2026 until manually unheld $ Given 05/15/2025 10:49 PM CDT 1,000 mg cefadroxil (Duricef) capsule 500 mg 500 mg, Oral, 2 TIMES DAILY, First dose (after last modification) on Tue05/22/25 at 2100, Until Discontinued, Indication for anti-infective therapy: Chronic prophylaxis $ Given 06/06/2025 9:46 AM CDT 500 mg $ Given 06/05/2025 8:06 PM CDT 500 mg $ Given 06/05/2025 8:45 AM CDT 500 mg cefepime (Maxipime) 2,000 mg in NaCl IV 0.9 % 50 mL IVPB 2,000 mg (2 g), at 100 mL/hr, Intravenous, EVERY 12 HOURS, First dose on Tue05/16/25 at 2100, Until Discontinued, Indication for anti-infective therapy: Suspected infection, Site of anti-infective therapy: Blood $ New Bag/Syringe 05/16/2025 10:22 PM CDT 2,000 mg 100 mL/hr cefepime (Maxipime) 2,000 mg in NaCl IV 0.9 % 50 mL IVPB 2,000 mg (2 g), at 100 mL/hr, Intravenous, EVERY 8 HOURS, 15 doses, First dose on Tue05/17/25 at 1415, Last dose on Tue05/22/25 at 0615, Indication for anti-infective therapy: Suspected infection, Site of anti-infective therapy: Blood $ New Bag/Syringe 05/22/2025 6:04 AM CDT 2,000 mg 100 mL/hr $ New Bag/Syringe 05/21/2025 10:03 PM CDT 2,000 mg 100 m L/hr $ New Bag/Syringe 05/21/2025 3:13 PM CDT 2,000 mg 100 mL /hr cephalexin (Keflex) suspension 500 mg 500 mg, Enteral Tube, EVERY 12 HOURS, First dose on Tue05/17/25 at 1030, Until Discontinued, Shake well before using., Indication for anti-infective therapy: Chronic prophylaxis $ Given 05/17/2025 11:29 AM CDT 500 mg NG T ube chlorhexidine (Peridex) 0.12 % oral solution 15 mL 15 mL, Mouth/Throat, 2 TIMES DAILY, First dose on Tue05/17/25 at 0900, Until Discontinued, Swab oral mucosa for 30 seconds. Do not brush teeth immediately after use. . WASTE DISPOSAL INSTRUCTIONS: Black Bin Disposal required. $ Given 05/24/2025 8:18 PM CDT 15 mL $ Given 05/24/2025 7:44 AM CDT 15 mL $ Given 05/23/2025 9:22 PM CDT 15 mL cyanocobalamin (Vitamin B-12) tablet 500 mcg 500 mcg, Enteral Tube, DAILY, First dose (after last modification) on 05/18/25 at 0900, Until Discontinued $ Given 05/24/2025 7:42 AM CDT 500 mcg NG Tu be $ Given 05/23/2025 8:42 AM CDT 500 mcg OG Tube $ Given 05/22/2025 8:05 AM CDT 500 mcg NG Tube cyanocobalamin (Vitamin B-12) tablet 500 mcg 500 mcg, Enteral Tube, DAILY, First dose (after last modification) on 05/25/25 at 0900, Until Discontinued $ Given 05/26/2025 8:37 AM CDT 500 mcg NG Tu be $ Given 05/25/2025 8:51 AM CDT 500 mcg NG Tube cyanocobalamin (Vitamin B-12) tablet 500 mcg 500 mcg, Oral, DAILY, First dose (after last modification) on Tue05/27/25 at 0900, Until Discontinued $ Given 06/06/2025 9:46 AM CDT 500 mcg $ Given 06/05/2025 8:45 AM CDT 500 mcg $ Given 06/04/2025 9:14 AM CDT 500 mcg dexmedeTOMIDine (Precedex) 400 mcg in 100 mL NS infusion premix 0-1.5 mcg/kg/hr 120.7 kg (0-45.2625 mL/hr, rounded to 0-45.26 mL/hr), Intravenous, CONTINUOUS, Starting on Rowena 05/16/25 at 2215, Until Tue05/17/25 at 0329, Above RASS goal: Assess and treat pain first if CPOT greater than 2. If agitation persists Increase rate per order. At RASS goal and no change in 4 hours: Decrease rate per order. Below RASS goal (unarousable): Hold infusion until at goal RASS then restart at 50% previous rate. If significant hemodynamic changes notify physician for instructions. Notify physician for inability to reach goals despite maximal dosage. Note: The CPOT goal should be achieved first with the use of the ordered analgesic medication prior to targeting RASS goal with the sedative. Hold medication and call physician if HR less than 40 bpm, Titration Parameters: Standard Parameters, Indication: Sedation, Initiate infusion at: 0.2 mcg/kg/hr, Titrate infusion by: 0.1 mcg/kg/hr, Titrate every: 30 minutes, Notify Physician: unable to maintain ordered clinical parameter despite max dose, Titration Priority: 1st, Restart Infusion: Medication may be restarted at last dose/rate administered before titrated to off. If infusion has been off for 4 or more hours, contact provider prior to restarting infusion. Rate Change 05/17/2025 2:53 AM CDT 0.5 mcg/kg/hr 15.09 mL/hr Rate Change 05/17/2025 1:34 AM CDT 0.6 mcg/kg/hr 18.11 mL/ hr Rate Change 05/17/2025 1:22 AM CDT 0.5 mcg/kg/hr 15.09 mL/ hr dexmedeTOMIDine (Precedex) 400 mcg in 100 mL NS infusion premix 0-1.5 mcg/kg/hr 119.1 kg (0-44.6625 mL/hr, rounded to 0-44.66 mL/hr), Intravenous, CONTINUOUS, Starting on 05/18/25 at 1600, Until Tue05/21/25 at 1426, Above RASS goal: Assess and treat pain first if CPOT greater than 2. If agitation persists Increase rate per order. At RASS goal and no change in 4 hours: Decrease rate per order. Below RASS goal (unarousable): Hold infusion until at goal RASS then restart at 50% previous rate. If significant hemodynamic changes notify physician for instructions. Notify physician for inability to reach goals despite maximal dosage. Note: The CPOT goal should be achieved first with the use of the ordered analgesic medication prior to targeting RASS goal with the sedative. Hold medication and call physician if HR less than 40 bpm, Titration Parameters: Standard Parameters, Indication: Sedation, Initiate infusion at: 0.2 mcg/kg/hr, Titrate infusion by: 0.1 mcg/kg/hr, Titrate every: 30 minutes, Notify Physician: unable to maintain ordered clinical parameter despite max dose, Titration Priority: 1st, Restart Infusion: Medication may be restarted at last dose/rate administered before titrated to off. If infusion has been off for 4 or more hours, contact provider prior to restarting infusion., On hold since Tue05/20/2025 at 1457 until manually unheld Current Rate 05/19/2025 7:43 AM CDT 0.2 mcg/kg/hr 5.96 mL/hr Rate Change 05/19/2025 7:19 AM CDT 0.2 mcg/kg/hr 5.96 mL/h r Rate Change 05/19/2025 6:35 AM CDT 0.3 mcg/kg/hr 8.93 mL/h r dexmedeTOMIDine (Precedex) 400 mcg in 100 mL NS infusion premix 0-0.8 mcg/kg/hr 107.5 kg (0-21.5 mL/hr), Intravenous, CONTINUOUS, Starting on 05/22/25 at 1100, Until Rowena 05/23/25 at 0059, Above RASS goal: Assess and treat pain first if CPOT greater than 2. If agitation persists Increase rate per order. At RASS goal and no change in 4 hours: Decrease rate per order. Below RASS goal (unarousable): Hold infusion until at goal RASS then restart at 50% previous rate. If significant hemodynamic changes notify physician for instructions. Notify physician for inability to reach goals despite maximal dosage. Note: The CPOT goal should be achieved first with the use of the ordered analgesic medication prior to targeting RASS goal with the sedative. Hold medication and call physician if HR less than 40 bpm, Titration Parameters: Standard Parameters, Indication: Sedation, Initiate infusion at: 0.2 mcg/kg/hr, Titrate infusion by: 0.1 mcg/kg/hr, Titrate every: 30 minutes, Notify Physician: unable to maintain ordered clinical parameter despite max dose, Titration Priority: 1st, Restart Infusion: Medication may be restarted at last dose/rate administered before titrated to off. If infusion has been off for 4 or more hours, contact provider prior to restarting infusion. $ New Bag/Syringe 05/22/2025 6:00 PM CDT 0.1 mcg/kg/hr 2.69 mL/hr Current Rate 05/22/2025 6:00 PM CDT 0.1 mcg/kg/hr 2.69 mL/ hr Rate Change 05/22/2025 5:57 PM CDT 0.1 mcg/kg/hr 2.69 mL/h r dexmedeTOMIDine (Precedex) 400 mcg in 100 mL NS infusion premix 0-0.7 mcg/kg/hr 107.5 kg (0-18.8125 mL/hr, rounded to 0-18.81 mL/hr), Intravenous, CONTINUOUS, Starting on [place] 05/23/25 at 0130, Until Tue05/24/25 at 0733, Above RASS goal: Assess and treat pain first if CPOT greater than 2. If agitation persists Increase rate per order. At RASS goal and no change in 4 hours: Decrease rate per order. Below RASS goal (unarousable): Hold infusion until at goal RASS then restart at 50% previous rate. If significant hemodynamic changes notify physician for instructions. Notify physician for inability to reach goals despite maximal dosage. Note: The CPOT goal should be achieved first with the use of the ordered analgesic medication prior to targeting RASS goal with the sedative. Hold medication and call physician if HR less than 40 bpm, Titration Parameters: Standard Parameters, Indication: Sedation, Initiate infusion at: 0.2 mcg/kg/hr, Titrate infusion by: 0.1 mcg/kg/hr, Titrate every: 30 minutes, Notify Physician: unable to maintain ordered clinical parameter despite max dose, Titration Priority: 1st, Restart Infusion: Medication may be restarted at last dose/rate administered before titrated to off. If infusion has been off for 4 or more hours, contact provider prior to restarting infusion. Rate Change 05/23/2025 1:16 PM CDT 0.2 mcg/kg/hr 5.38 mL/hr Current Rate 05/23/2025 12:58 PM CDT 0.4 mcg/kg/hr 10.75 m L/hr $ New Bag/Syringe 05/23/2025 12:30 PM CDT 0.4 mcg/kg/hr 10 .75 mL/hr dextrose 10 % IV bolus 250 mL, at 82.87 mL/hr, Administer over 181 Minutes, CONTINUOUS, Starting on Tue05/15/25 at 1915, Until Tue05/15/25 at 2314, Administer immediately after IV regular insulin to patients with initial (pre-insulin) glucose less than or equal to 200 mg/dL HOLD if initial, pre-insulin glucose is greater than 200 mg/dL $ New Bag/Syringe 05/15/2025 7:20 PM CDT 250 mL 82.87 mL/hr dextrose IV 12.5 g 12.5 g, Intravenous, PRN, Other, Bedside Glucose less than 70 mg/dL -If NOT able to eat and/or NPO and with IV Access, Starting on Tue05/15/25 at 1836, Until Tue06/06/25 at 1825, If NOT able to eat and/or NPO and with IV Access: For Bedside Glucose 54-69 mg/dL give 12.5 g Dextrose IV STAT For Bedside Glucose LESS than 54 mg/dl verify with a second Bedside Glucose (from a different site) and give 25 g Dextrose IV STAT Re-check and Re-treat blood glucose EVERY , 10-25 minutes until blood glucose GREATER than or equal to 80 mg/dl. NOTIFY PROVIDER OF HYPOGLYCEMIC EVENT. $ Given 05/16/2025 6:49 AM CDT 12.5 g $ Given 05/16/2025 5:02 AM CDT 12.5 g dextrose IV 25 g 25 g, Intravenous, ONCE, 1 dose, On Tue05/15/25 at 1900, administer FIRST then administer IV regular insulin $ Given 05/15/2025 6:55 PM CDT 25 g dextrose IV 25 g 25 g, Intravenous, PRN, Other, Bedside Glucose less than 70 mg/dL -If NOT able to eat and/or NPO and with IV Access, Starting on Tue05/15/25 at 1836, Until Tue06/06/25 at 1825, If NOT able to eat and/or NPO and with IV Access: For Bedside Glucose LESS than 54 mg/dl verify with a second Bedside Glucose (from a different site) and give 25 g Dextrose IV STAT Re-check and Re-treat blood glucose EVERY - 10-25 minutes until blood glucose GREATER than or equal to 80 mg/dl. - If repeat bedside glucose 54-79 give 12.5 g Dextrose IV STAT NOTIFY PROVIDER OF HYPOGLYCEMIC EVENT. $ Given 05/16/2025 9:01 AM CDT 25 g dextrose IV 25 g 25 g, Intravenous, ONCE, 1 dose, On Tue05/16/25 at 0315, administer FIRST then administer IV regular insulin $ Given 05/16/2025 3:29 AM CDT 25 g diazePAM (Valium) injection 2.5 mg 2.5 mg, Intravenous, ONCE PRN, Agitation, 1 dose, Starting on Tue05/22/25 at 1404, Until Tue05/22/25 at 2326, Please call cards [phone] if have to use this. $ Given 05/22/2025 11:26 PM CDT 2.5 mg digoxin (Lanoxin) injection 0.5 mg 0.5 mg, Intravenous, ONCE, 1 dose, On 05/18/25 at 1945, . WASTE DISPOSAL INSTRUCTIONS: Black Bin Disposal required. $ Given 05/18/2025 9:50 P M CDT 0.5 mg digoxin (Lanoxin) injection 0.5 mg 0.5 mg, Intravenous, ONCE, 1 dose, On Tue05/20/25 at 0500, . WASTE DISPOSAL INSTRUCTIONS: Black Bin Disposal required. $ Given 05/20/2025 5:05 A M CDT 0.5 mg empagliflozin (Jardiance) tablet 10 mg 10 mg, Oral, DAILY, First dose on Tue05/22/25 at 0900, Until Discontinued, Restricted to the indication of Heart Failure and/or CKD only due to risk of hypoglycemic when used for DM in acute care settings. Indication for use? Heart Failure $ Given 05/24/2025 7:43 AM CDT 10 mg $ Given 05/23/2025 8:43 AM CDT 10 mg $ Given 05/22/2025 8:05 AM CDT 10 mg NG Tube empagliflozin (Jardiance) tablet 10 mg 10 mg, Enteral Tube, DAILY, First dose (after last modification) on 05/25/25 at 0900, Until Discontinued, Restricted to the indication of Heart Failure and/or CKD only due to risk of hypoglycemic when used for DM in acute care settings. Indication for use? Heart Failure $ Given 05/26/2025 8:38 AM CDT 10 mg NG T ube $ Given 05/25/2025 8:52 AM CDT 10 mg NG Tube empagliflozin (Jardiance) tablet 10 mg 10 mg, Oral, DAILY, First dose (after last modification) on 05/27/25 at 0900, Until Discontinued, Restricted to the indication of Heart Failure and/or CKD only due to risk of hypoglycemic when used for DM in acute care settings. Indication for use? Heart Failure $ Given 06/06/2025 9:47 AM CDT 10 mg $ Given 06/05/2025 8:45 AM CDT 10 mg $ Given 06/04/2025 9:13 AM CDT 10 mg escitalopram (Lexapro) tablet 10 mg 10 mg, Oral, DAILY, First dose on [place] 05/16/25 at 0900, Until Discontinued $ Given 06/06/2025 9:47 AM CDT 10 mg $ Given 06/05/2025 8:45 AM CDT 10 mg $ Given 06/04/2025 9:13 AM CDT 10 mg etomidate (Amidate) injection Intravenous, CODE PRN, Starting on Tue05/17/25 at 0325, Until Tue05/17/25 at 0325 $ Given 05/17/2025 3:25 AM CDT 40 mg fentaNYL (PF) (Sublimaze) injection 100 mcg 100 mcg, Intravenous, ONCE, 1 dose, On 05/20/25 at 1430, Patient preference for lesser PRN pain meds may be honored when the patient requests a less strong medication, a lower dose, or a less intrusive route of administration when the lesser drug, dose and route have been ordered for the patient. This patient request must be documented in the MAR. If both oral and IV options are ordered for the same pain severity, give oral first unless patient cannot tolerate oral intakeIndications:Periprocedural Sedation $ Given 05/20/2025 3:15 PM CDT 50 mcg fentaNYL (PF) (Sublimaze) injection 100 mcg 100 mcg, Intravenous, ONCE, 1 dose, On 05/20/25 at 1445, Patient preference for lesser PRN pain meds may be honored when the patient requests a less strong medication, a lower dose, or a less intrusive route of administration when the lesser drug, dose and route have been ordered for the patient. This patient request must be documented in the MAR. If both oral and IV options are ordered for the same pain severity, give oral first unless patient cannot tolerate oral intakeIndications:Periprocedural Sedation $ Given 05/20/2025 2:50 PM CDT 100 mcg fentaNYL (Sublimaze) bolus from bag 50 mcg 50 mcg, Intravenous, BOLUS FROM BAG PRN, CPOT goal, Starting on Tue05/17/25 at 0325, Until 05/18/25 at 1524, Bolus from bag every 5 minutes to reach CPOT goal. Can give bolus before anticipated painful stimuli. Contact physician if unable to achieve CPOT goal after administering 4 boluses. If a sedative is ordered, titrate/administer opioid first to achieve CPOT goal, followed by titration/administration of sedative to achieve RASS goal. Bolus From Bag 05/17/2025 2:20 PM CDT 50 mcg Bolus From Bag 05/17/2025 2:15 PM CDT 50 mcg Bolus From Bag 05/17/2025 2:10 PM CDT 50 mcg fentaNYL 2500 mcg/50mL infusion 0-200 mcg/hr (0-4 mL/hr), Intravenous, CONTINUOUS, Starting on Tue05/17/25 at 0400, Until 05/18/25 at 1524, Above CPOT goal: bolus every 5 minutes until goal CPOT then increase rate per order. Can give bolus before anticipated painful stimuli. Contact physician if unable to achieve CPOT goal after administering 4 boluses. At CPOT goal and no change in 4 hours: Decrease rate per order If significant hemodynamic changes, notify physician for instructions. Notify physician for inability to reach goals despite maximal dosage. If a sedative is ordered, titrate/administer opioid first to achieve CPOT goal, followed by titration/administration of sedative to achieve RASS goal., Titration Parameters: Analgesia, Indication: Analgesia, Initiate infusion at: 25 mcg/hr, Titrate infusion by: 25 mcg/hr, Titrate every: 5 minutes, Notify physician if: Unachievable CPOT goal despite max dose Rate Change 05/18/2025 12:41 PM CDT 50 mcg/hr 1 mL/hr Rate Change 05/18/2025 9:31 AM CDT 75 mcg/hr 1.5 mL/hr Rate Change 05/18/2025 9:23 AM CDT 100 mcg/hr 2 mL/hr furosemide (Lasix) injection 80 mg 80 mg, Intravenous, NOW, 1 dose, On Tue05/15/25 at 1915, Protect from light $ Given 05/15/2025 7:55 PM CDT 80 mg furosemide (Lasix) injection 80 mg 80 mg, Intravenous, 3 TIMES DAILY (diuretics and nitrates), First dose on Tue05/16/25 at 0800, Until Discontinued, Protect from light $ Given 05/16/2025 3:47 PM CDT 80 mg $ Given 05/16/2025 12:10 PM CDT 80 mg $ Given 05/16/2025 10:20 AM CDT 80 mg furosemide (Lasix) tablet 40 mg 40 mg, Oral, DAILY, First dose on Tue05/22/25 at 0900, Until Discontinued $ Given 05/22/2025 8:05 AM CDT 40 mg NG Tube glucagon (Glucagen) injection 1 mg 1 mg, Subcutaneous, PRN, Bedside Glucose less than 70 mg/dL - If NOT able to eat and/or NPO and withOUT IV Access, Starting on Tue05/15/25 at 1836, Until Tue06/06/25 at 1825, If NOT able to eat and/or NPO and NO IV Access: For Bedside glucose 54-69 mg/dL - Give 1 mg subcutaneous For Bedside Glucose LESS than 54 mg/dl - verify with a second bedside glucose (from a different site) - Give 1 mg subcutaneous Re-check and Re-treat blood glucose EVERY 10-25 minutes until blood glucose GREATER than or equal to 80 mg/dl. NOTIFY PROVIDER OF HYPOGLYCEMIC EVENT. Reconstitute vial with 1 mL of sterile water for injection for a final concentration of 1 mg/mL; shake vial gently; use immediately and discard unused portion glucose (Diabetic Use) oral gel Oral, PRN, Other, Bedside Glucose less than 70 mg/dL, Starting on Tue05/15/25 at 1836, Until [place] 06/06/25 at 1825, If able to take oral medications: For Bedside Glucose 54 - 69 mg/dL Give 15 grams of oral carbohydrates - 1 glucose gel (see MAR) If patient refuses glucose gel, then offer: - 4 ounces of fruit juice OR - 4 ounces non-diet soda OR - 8 ounces of fat-free milk For Bedside Glucose LESS than 54 mg/dL verify with a second Bedside Glucose (from a different site) - If pt is symptomatic, do not delay treatment - If accuracy of the POC glucose is in question, confirm glucose with aSTAT laboratory test Give 30 grams of oral carbohydrates - 2 glucose gels (see MAR) If patient refuses glucose gel, then offer: - 8 ounces of fruit juice OR - 8 ounces non-diet soda OR - 16 ounces of fat-free milk Re-check and Re-treat blood glucose EVERY 10-25 minutes until blood glucose GREATER than or equal to 80 mg/dl. - If on recheck, bedside glucose 54-79 mg/dL - Give 15 grams of oral carbohydrates (see above for choices) NOTIFY PROVIDER OF HYPOGLYCEMIC EVENT. guaiFENesin (Robitussin) solution 10 mL 10 mL, Enteral Tube, EVERY 6 HOURS, 3 doses, First dose on Tue05/24/25 at 0800, Last dose on Tue05/24/25 at 1800 $ Given 05/24/2025 6:35 PM CDT 10 mL NG Tube $ Given 05/24/2025 12:15 PM CDT 10 mL N G Tube $ Given 05/24/2025 7:42 AM CDT 10 mL NG Tube guaiFENesin ER 12hr (Mucinex) tablet 600 mg 600 mg, Oral, EVERY 12 HOURS, First dose on 05/25/25 at 1445, Until Discontinued, Do not crush, chew, or cut in half. $ Given 06/06/2025 9:48 AM CDT 600 mg $ Given 06/05/2025 8:06 PM CDT 600 mg $ Given 06/05/2025 8:44 AM CDT 600 mg hydrOXYzine HCl (Atarax) tablet 100 mg 100 mg, Oral, ONCE, 1 dose, On [place] 05/23/25 at 0115 $ Given 05/23/2025 1:15 AM CDT 100 mg hypertonic 3% NaCl bolus 100 mL 100 mL, at 600 mL/hr, Intravenous, ONCE, 1 dose, On Tue05/17/25 at 0145, Preferred IV administration is through a central line $ New Bag/Syringe 05/17/2025 2:11 AM CDT 100 mL 600 mL/hr hypertonic 3% NaCl bolus 100 mL 100 mL, at 600 mL/hr, Intravenous, ONCE, 1 dose, On Tue05/17/25 at 0645, Preferred IV administration is through a central line $ New Bag/Syringe 05/17/2025 6:31 AM CDT 100 mL 600 mL/hr insulin aspart (NovoLOG) pen 0-12 Units 0-12 Units, Subcutaneous, EVERY 6 HOURS, First dose (after last modification) on Tue05/17/25 at 0000, Until Discontinued, Standard Dose: Correction Insulin Bedside glucose should be done within 30-60 minutes of correction insulin administration. BG (mg/dL) Corrective Action LESS than 70 follow Hypoglycemic guidelines, 70-140 NO Correction insulin, 141-180 GIVE 2 units of insulin, 181-220 GIVE 4 units of insulin, 221-260 GIVE 6 units of insulin, 261-300 GIVE 8 units of insulin, 301-350 GIVE 10 units of insulin Greater than 350 GIVE 12 units of insulin and notify physician., If the patient is NPO; DO NOT HOLD correction insulin If patient is eating meals and has orders for Mealtime insulin, combine and give at the same time. . WASTE DISPOSAL INSTRUCTIONS: Black Bin Disposal required. $ Given 05/20/2025 12:10 PM CDT 10 Units Abdominal Tissue $ Given 05/20/2025 5:23 AM CDT 8 Units Ab d Right Lower Quadrant $ Given 05/20/2025 12:34 AM CDT 6 Units A bd Left Lower Quadrant insulin aspart (NovoLOG) pen 0-18 Units 0-18 Units, Subcutaneous, EVERY 4 HOURS, First dose (after last modification) on Tue05/20/25 at 2000, Until Discontinued, High Dose: Correction Insulin Bedside glucose should be done within 30-60 minutes of correction insulin administration. BG (mg/dL) Corrective Action LESS than 70 follow Hypoglycemic guidelines, 70-140 NO Correction insulin, 141-180 GIVE 3 units of insulin, 181-220 GIVE 6 units of insulin, 221-260 GIVE 9 units of insulin, 261-300 GIVE 12 units of insulin, 301-350 GIVE 15 units of insulin Greater than 350 GIVE 18 units of insulin and notify physician. , If the patient is NPO; DO NOT HOLD correction insulin If patient is eating meals and has orders for Mealtime insulin, combine and give at the same time. . WASTE DISPOSAL INSTRUCTIONS: Black Bin Disposal required. $ Given 05/26/2025 12:17 PM CDT 9 Units Righ t Arm $ Given 05/26/2025 8:59 AM CDT 9 Units Le ft Arm $ Given 05/26/2025 4:55 AM CDT 3 Units Ab dominal Tissue insulin aspart (NovoLOG) pen 0-18 Units 0-18 Units, Subcutaneous, 3 TIMES DAILY WITH MEALS, First dose (after last modification) on 05/27/25 at 0800, Until Discontinued, High Dose: Correction Insulin Bedside glucose should be done within 30-60 minutes of correction insulin administration. BG (mg/dL) Corrective Action LESS than 70 follow Hypoglycemic guidelines, 70-140 NO Correction insulin, 141-180 GIVE 3 units of insulin, 181-220 GIVE 6 units of insulin, 221-260 GIVE 9 units of insulin, 261-300 GIVE 12 units of insulin, 301-350 GIVE 15 units of insulin Greater than 350 GIVE 18 units of insulin and notify physician. , If the patient is NPO; DO NOT HOLD correction insulin If patient is eating meals and has orders for Mealtime insulin, combine and give at the same time. . WASTE DISPOSAL INSTRUCTIONS: Black Bin Disposal required. $ Given 06/06/2025 12:32 PM CDT 12 Units Abd Right Lower Quadrant $ Given 06/05/2025 12:33 PM CDT 9 Units A bd Left Lower Quadrant $ Given 06/04/2025 5:47 PM CDT 3 Units Ri ght Arm insulin aspart (NovoLOG) pen 0-6 Units 0-6 Units, Subcutaneous, EVERY 4 HOURS, First dose on [place] 05/16/25 at 0000, Until Discontinued, Low Dose: Correction Insulin BG (mg/dL) Corrective Action LESS than 70 follow Hypoglycemic guidelines 70-180 NO Correction insulin 181-220 GIVE 2 units of insulin 221-260 GIVE 3 units of insulin 261-300 GIVE 4 units of insulin 301-350 GIVE 5 units of insulin Greater than 350 GIVE 6 units of insulin and notify physician DO NOT HOLD if Patient is NPO. If patient has orders for Mealtime insulin combine and give at same time. . WASTE DISPOSAL INSTRUCTIONS: Black Bin Disposal required. $ Given 05/16/2025 12:17 AM CDT 6 Units Left Arm insulin glargine (Lantus) pen 5 Units 5 Units, Subcutaneous, AT BEDTIME, First dose on Tue05/17/25 at 2100, Until Discontinued, Obtain current Blood Glucose if necessary . WASTE DISPOSAL INSTRUCTIONS: Black Bin Disposal required. $ Given 06/05/2025 8:14 PM CDT 5 Units Right Arm $ Given 06/04/2025 8:53 PM CDT 5 Units Le ft Arm $ Given 06/03/2025 8:21 PM CDT 5 Units Le ft Arm insulin glargine (Lantus) pen 6 Units 6 Units, Subcutaneous, AT BEDTIME, First dose (after last modification) on Tue06/06/25 at 2100, Until Discontinued, Obtain current Blood Glucose if necessary . WASTE DISPOSAL INSTRUCTIONS: Black Bin Disposal required. insulin regular human 1 unit/mL injection 5 Units, Intravenous, ONCE, 1 dose, On Tue05/15/25 at 1900, administer Dextrose 25 g FIRST then IV regular insulin Use prefilled syringe. For non 24 hour pharmacies: Withdraw 5-10mL from insulin bag based on Epic order with dispensing pin and luer lock syringe then admin IVP over 1 minute. $ Given 05/15/2025 7:04 PM CDT 5 Units insulin regular human 1 unit/mL injection 10 Units, Intravenous, ONCE, 1 dose, On Tue05/16/25 at 0315, administer Dextrose 25 g FIRST then IV regular insulin Use prefilled syringe. For non 24 hour pharmacies: Withdraw 5-10mL from insulin bag based on Epic order with dispensing pin and luer lock syringe then admin IVP over 1 minute. $ Given 05/16/2025 3:31 AM CDT 10 Units iopamidol (Isovue 370) 76 % contrast Intravenous, CONTRAST ONCE, Starting on Tue05/15/25 at 1914, Until Tue05/17/25 at 1913 $ Given - Contrast 05/15/2025 7:29 PM CDT 100 mL lactated ringers IV bolus 250 mL, at 123.97 mL/hr, Administer over 121 Minutes, ONCE, 1 dose, On Tue05/20/25 at 1900 Current Rate 05/20/2025 9:00 PM CDT 123.97 mL/hr $ New Bag/Syringe 05/20/2025 8:03 PM CDT 250 mL 123.97 mL/hr lactated ringers IV bolus 250 mL, at 245.9 mL/hr, Administer over 61 Minutes, ONCE, 1 dose, On [facility] 05/22/25 at 1830 Current Rate 05/22/2025 7:00 PM CDT 245.9 mL/hr Current Rate 05/22/2025 6:21 PM CDT 245.9 mL/hr $ New Bag/Syringe 05/22/2025 6:21 PM CDT 250 mL 245.9 mL/hr lactated ringers IV bolus 250 mL, at 483.87 mL/hr, Administer over 31 Minutes, ONCE, 1 dose, On [facility] 05/23/25 at 0630 $ New Bag/Syringe 05/23/2025 6:21 AM CDT 250 mL 483.87 mL/hr lactated ringers IV bolus 250 mL, at 483.87 mL/hr, Administer over 31 Minutes, ONCE, 1 dose, On [facility] 05/29/25 at 1715 $ New Bag/Syringe 05/29/2025 5:22 PM CDT 250 mL 483.87 mL/hr levothyroxine (Synthroid) tablet 75 mcg 75 mcg, Oral, EVERY MORNING, First dose on [facility] 05/16/25 at 0600, Until Discontinued, Take in the morning on an empty stomach. Do not give within 4 hours of antacids, iron or calcium supplements. $ Given 05/17/2025 5:16 AM CDT 75 mcg levothyroxine (Synthroid) tablet 75 mcg 75 mcg, Enteral Tube, EVERY MORNING, [facility]after last modification[facility] at 0600, Until Discontinued, Hold EN for 30 to 60 minutes before and after levothyroxine tablet administration, if possible. Take in the morning on an empty stomach. Do not give within 4 hours of antacids, iron or calcium supplements. $ Given 05/24/2025 5:48 AM CDT 75 mcg NG Tube $ Given 05/23/2025 6:23 AM CDT 75 mcg NG Tube $ Given 05/22/2025 5:59 AM CDT 75 mcg NG Tube levothyroxine (Synthroid) tablet 75 mcg 75 mcg, Enteral Tube, EVERY MORNING, First dose (after last modification) [facility] at 0600, Until Discontinued, Hold EN for 30 to 60 minutes before and after levothyroxine tablet administration, if possible. Take in the morning on an empty stomach. Do not give within 4 hours of antacids, iron or calcium supplements. $ Given 05/28/2025 5:41 AM CDT 75 mc g G Tube $ Given 05/27/2025 6:14 AM CDT 75 mcg OG Tube $ Given 05/26/2025 6:38 AM CDT 75 mcg NG Tube levothyroxine (Synthroid) tablet 75 mcg 75 mcg, Oral, EVERY MORNING, First dose (after last modification) on 05/29/25 at 0600, Until Discontinued, Take in the morning on an empty stomach. Do not give within 4 hours of antacids, iron or calcium supplements. $ Given 06/06/2025 5:18 AM CDT 75 mcg $ Given 06/05/2025 6:06 AM CDT 75 mcg $ Given 06/04/2025 6:07 AM CDT 75 mcg loperamide (Imodium) capsule 2 mg 2 mg, Oral, 4 TIMES DAILY PRN, Diarrhea, Starting on [place] 05/30/25 at 0327, Until [place] 06/06/25 at 1825, Max dose 16mg/day $ Given 06/04/2025 12:52 PM CDT 2 mg $ Given 06/04/2025 9:13 AM CDT 2 mg $ Given 06/03/2025 8:49 AM CDT 2 mg LORazepam (Ativan) injection 1 mg 1 mg, Intravenous, ONCE, 1 dose, On [place] 05/16/25 at 2315 $ Given 05/16/2025 11:03 PM CDT 1 mg magnesium sulfate 2 g in 50 mL bolus 2 g, at 25 mL/hr, Administer over 120 Minutes, Intravenous, ONCE, 1 dose, [facility] at 0615, Infuse at 1 gm/hr Current Rate 05/18/2025 8:16 AM CDT 25 mL/h r $ New Bag/Syringe 05/18/2025 6:46 AM CDT 2 g 25 mL/ hr magnesium sulfate 2 g in 50 mL bolus 2 g, at 25 mL/hr, Administer over 120 Minutes, Intravenous, ONCE, 1 dose, On Tue05/19/25 at 2015, Infuse at 1 gm/hr Current Rate 05/19/2025 10:00 PM CDT 25 mL/hr Current Rate 05/19/2025 9:14 PM CDT 25 mL/hr Current Rate 05/19/2025 9:00 PM CDT 25 mL/hr magnesium sulfate 4 g in 100 mL bolus 4 g, at 25 mL/hr, Administer over 240 Minutes, Intravenous, ONCE, 1 dose, On Tue05/17/25 at 0730, Infuse at 1 gm/hr Current Rate 05/17/2025 11:00 AM CDT 25 mL/hr Current Rate 05/17/2025 9:41 AM CDT 25 mL/hr $ New Bag/Syringe 05/17/2025 8:02 AM CDT 4 g 25 mL/ hr magnesium sulfate 4 g in 100 mL bolus 4 g, at 25 mL/hr, Administer over 240 Minutes, Intravenous, ONCE, 1 dose, On Tue05/22/25 at 0730, Infuse at 1 gm/hr Current Rate 05/22/2025 11:02 AM CDT 25 mL/hr Current Rate 05/22/2025 10:00 AM CDT 25 mL/hr Current Rate 05/22/2025 9:00 AM CDT 25 mL/hr methocarbamol (Robaxin) tablet 750 mg 750 mg, Oral, EVERY 6 HOURS PRN, Muscle Spasms, Starting on Tue05/16/25 at 0251, Until Tue05/19/25 at 0250 $ Given 05/16/2025 3:00 AM CDT 750 mg metoprolol succinate XL 24hr (Toprol XL) tablet 100 mg 100 mg, Oral, DAILY, First dose on Tue05/27/25 at 0915, Until Discontinued, May cut in half but do not crush or chew $ Given 05/30/2025 9:43 AM CDT 100 mg $ Given 05/29/2025 8:54 AM CDT 100 mg $ Given 05/28/2025 8:27 AM CDT 100 mg metoprolol succinate XL 24hr (Toprol XL) tablet 25 mg 25 mg, Oral, DAILY, First dose (after last modification) on Tue05/31/25 at 0915, Until Discontinued, May cut in half but do not crush or chew $ Given 06/06/2025 9:46 AM CDT 25 mg $ Given 06/04/2025 9:13 AM CDT 25 mg $ Given 06/03/2025 8:49 AM CDT 25 mg metoprolol tartrate IR (Lopressor) tablet 25 mg 25 mg, Oral, EVERY 6 HOURS, First dose on Tue05/21/25 at 0930, Until Discontinued $ Given 05/22/2025 5:59 AM CDT 25 m g $ Given 05/22/2025 12:09 AM CDT 25 mg $ Given 05/21/2025 5:49 PM CDT 25 mg metoprolol tartrate IR (Lopressor) tablet 25 mg 25 mg, Enteral Tube, EVERY 6 HOURS, First dose (after last modification) on Tue05/22/25 at 1200, Until Discontinued $ Given 05/23/2025 6:23 AM CDT 25 mg NG Tu be $ Given 05/23/2025 12:16 AM CDT 25 mg N G Tube $ Given 05/22/2025 6:22 PM CDT 25 mg NG Tube metoprolol tartrate IR (Lopressor) tablet 50 mg 50 mg, Enteral Tube, EVERY 12 HOURS, First dose (after last modification) on Tue05/23/25 at 2100, Until Discontinued $ Given 05/24/2025 7:43 AM CDT 50 mg NG Tu be $ Given 05/23/2025 9:22 PM CDT 50 mg NG Tube metoprolol tartrate IR (Lopressor) tablet 50 mg 50 mg, Enteral Tube, EVERY 12 HOURS, First dose (after last modification) on Tue05/24/25 at 2100, Until Discontinued $ Given 05/26/2025 8:38 AM CDT 50 mg NG Tu be $ Given 05/25/2025 9:51 PM CDT 50 mg NG Tube $ Given 05/25/2025 8:51 AM CDT 50 mg NG Tube metoprolol tartrate IR (Lopressor) tablet 50 mg 50 mg, Oral, EVERY 12 HOURS, First dose (after last modification) on Tue05/26/25 at 2100, Until Discontinued $ Given 05/26/2025 8:17 PM CDT 50 mg midazolam (Versed) injection 2 mg 2 mg, Intravenous, ONCE, 1 dose, On Tue05/17/25 at 1445 $ Given 05/17/2025 2:22 PM CDT 2 mg midazolam (Versed) injection 4 mg 4 mg, Intravenous, ONCE, 1 dose, On Tue05/20/25 at 1430Indications:Periproce dural Sedation $ Given 05/20/2025 3:00 PM CDT 2 mg midazolam (Versed) injection 4 mg 4 mg, Intravenous, ONCE, 1 dose, On Tue05/20/25 at 1445Indications:Preoperat darrel Sedation $ Given 05/20/2025 3:00 PM CDT 4 mg midazolam (Versed) injection 5 mg 5 mg, Intravenous, ONCE, 1 dose, On Tue05/17/25 at 1600Indications:Periproce dural Sedation $ Given 05/17/2025 3:57 PM CDT 5 mg nitroPRUSSide (Nipride) 20 mg in NaCl IV 0.9 % 100 mL infusion 0-5 mcg/kg/min 120.7 kg (0-181.05 mL/hr), Intravenous, CONTINUOUS, Starting on [place] 05/16/25 at 2330, Until Tue05/17/25 at 0052, Protect from light, Titration Parameters: Heart Failure, Indication: Heart Failure, Initiate infusion at: 0.1 mcg/kg/min, Titrate infusion by: 0.1-0.3 mcg/kg/min, Titrate every: 5 minutes, To maintain a: MAP between 65 and 70 mmHg, Notify physician if: MAP greater than 65 mmHg despite max dose $ New Bag/Syringe 05/17/2025 12:16 AM CDT 0.1 mcg/kg/min 3.62 mL/hr nitroPRUSSide (Nipride) 20 mg in NaCl IV 0.9 % 100 mL infusion 0-5 mcg/kg/min 120.7 kg (0-181.05 mL/hr), Intravenous, CONTINUOUS, Starting on Tue05/17/25 at 0100, Until Tue05/17/25 at 0849, Protect from light, Titration Parameters: Heart Failure, Indication: Heart Failure, Initiate infusion at: 0.1 mcg/kg/min, Titrate infusion by: 0.1-0.3 mcg/kg/min, Titrate every: 5 minutes, To maintain a: Other see comments, Notify physician if: MAP greater than 65 mmHg despite max dose Rate Change 05/17/2025 8:37 AM CDT 0.2 mcg/kg/min 7.24 mL/hr Rate Change 05/17/2025 8:29 AM CDT 0.3 mcg/kg/min 10.86 mL /hr Rate Change 05/17/2025 8:01 AM CDT 0.5 mcg/kg/min 18.11 mL /hr norepinephrine (Levophed) 8 mg/250 ml NS infusion premix 0-0.4 mcg/kg/min 120.7 kg (0-90.525 mL/hr, rounded to 0-90.53 mL/hr), Intravenous, CONTINUOUS, Starting on Tue05/17/25 at 1000, Until Tue05/20/25 at 0728, Central line required if infused longer than 48 hours or infusing multiple vasopressors, Titration Parameters: Standard Parameters, Indication: Hypotension, Initiate infusion at: 0.05 mcg/kg/min, Titrate infusion by: 0.01-0.05 mcg/kg/min, Titrate every: 1 minute, To maintain a: Other - see comments, Notify Physician: unable to maintain ordered clinical parameter despite max dose, Restart Infusion: Medication may be restarted at last dose/rate administered before titrated to off. If infusion has been off for 4 or more hours, contact provider prior to restarting infusion. Current Rate 05/19/2025 8:00 PM CDT 0.01 mcg/kg/min 2.26 mL/hr Current Rate 05/19/2025 7:47 PM CDT 0.01 mcg/kg/min 2.26 m L/hr Current Rate 05/19/2025 7:43 AM CDT 0.01 mcg/kg/min 2.26 m L/hr norepinephrine (Levophed) 8 mg/250 ml NS infusion premix 0-0.4 mcg/kg/min 111.1 kg (0-83.325 mL/hr, rounded to 0-83.33 mL/hr), Intravenous, CONTINUOUS, Starting on Tue05/20/25 at 2300, Until Tue05/21/25 at 0725, Central line required if infused longer than 48 hours or infusing multiple vasopressors, Titration Parameters: Standard Parameters, Indication: Hypotension, Initiate infusion at: 0.05 mcg/kg/min, Titrate infusion by: 0.01-0.05 mcg/kg/min, Titrate every: 1 minute, To maintain a: MAP greater than or equal to 65 mmHg, Notify Physician: unable to maintain ordered clinical parameter despite max dose, Restart Infusion: Medication may be restarted at last dose/rate administered before titrated to off. If infusion has been off for 4 or more hours, contact provider prior to restarting infusion. Rate Change 05/21/2025 7:06 AM CDT 0 mcg/kg/min 0 mL/hr Current Rate 05/21/2025 6:00 AM CDT 0.01 mcg/kg/min 2.08 m L/hr Current Rate 05/21/2025 5:00 AM CDT 0.01 mcg/kg/min 2.08 m L/hr norepinephrine (Levophed) 8 mg/250 ml NS infusion premix 0-0.4 mcg/kg/min 109.3 kg (0-81.975 mL/hr, rounded to 0-81.98 mL/hr), Intravenous, CONTINUOUS, Starting on Tue05/21/25 at 1915, Until Tue05/22/25 at 1110, Central line required if infused longer than 48 hours or infusing multiple vasopressors, Titration Parameters: Standard Parameters, Indication: Hypotension, Initiate infusion at: 0.05 mcg/kg/min, Titrate infusion by: 0.01-0.05 mcg/kg/min, Titrate every: 1 minute, To maintain a: MAP greater than or equal to 65 mmHg, Notify Physician: unable to maintain ordered clinical parameter despite max dose, Restart Infusion: Medication may be restarted at last dose/rate administered before titrated to off. If infusion has been off for 4 or more hours, contact provider prior to restarting infusion. Current Rate 05/22/2025 3:27 AM CDT 0.01 mcg/kg/min 2.05 mL/hr Rate Change 05/22/2025 1:29 AM CDT 0.01 mcg/kg/min 2.05 mL /hr Current Rate 05/22/2025 1:23 AM CDT 0.02 mcg/kg/min 4.1 mL /hr ondansetron (disintegrating) (Zofran ODT) tablet 4 mg 4 mg, Oral, EVERY 6 HOURS PRN, Nausea/Vomiting, Starting on Tue06/03/25 at 1828, Until Tue06/06/25 at 1825, Dissolved orally on tongue $ Given 06/03/2025 9:30 PM CDT 4 mg ondansetron (Zofran) injection 4 mg 4 mg, Intravenous, NOW, 1 dose, On Tue05/15/25 at 1430, Administer over 2 to 5 minutes. $ Given 05/15/2025 2:53 PM CDT 4 mg pantoprazole (Protonix) injection 40 mg 40 mg, Intravenous, DAILY, First dose on Tue05/17/25 at 0945, Until Discontinued, For every 40 mg of pantoprazole mix with 10 mL Normal Saline (final concentration = 4 mg/mL). Inject SLOWLY over 2 min. $ Given 05/24/2025 7:42 AM CDT 40 mg $ Given 05/23/2025 8:44 AM CDT 40 mg $ Given 05/22/2025 8:05 AM CDT 40 mg patiromer (Veltassa) packet 16.8 g 16.8 g, Oral, DAILY at 1300, First dose on Tue05/15/25 at 1845, Until Discontinued, Measure 1/3 cup of water. Pour half into a glass, add Veltassa and stir. Add the remaining half and stir. The mixture will look cloudy. Add more water to the mixture as needed for desired consistency. Drink immediately. If powder remains in the glass after drinking, add more water, stir and drink immediately. Repeat as needed. Avoid taking other oral medications 3 hours before or after. Store packets in refrigerator. $ Given 05/15/2025 7:02 PM CDT 16.8 g patiromer (Veltassa) packet 8.4 g 8.4 g, Oral, DAILY at 1300, First dose on Tue06/02/25 at 0845, Until Discontinued, Measure 1/3 cup of water. Pour half into a glass, add Veltassa and stir. Add the remaining half and stir. The mixture will look cloudy. Add more water to the mixture as needed for desired consistency. Drink immediately. If powder remains in the glass after drinking, add more water, stir and drink immediately. Repeat as needed. Avoid taking other oral medications 3 hours before or after. Store packets in refrigerator. $ Given 06/06/2025 12:32 PM CDT 8.4 g $ Given 06/05/2025 1:02 PM CDT 8.4 g $ Given 06/04/2025 12:55 PM CDT 8.4 g perflutren lipid microsphere (Definity) injection 0.5 mL 0.5 mL, Intravenous, INTRA-PROCEDURE MULTIPLE, Starting on Tue05/28/25 at 0926, Until Tue05/28/25 at 1325, For Echo Procedure - Per Protocol Give slowly Shake well before using. $ Given 05/28/2025 9:27 AM CDT 0.5 mL perflutren lipid microsphere (Definity) injection 1.5 mL 1.5 mL, Intravenous, INTRA-PROCEDURE ONCE, 1 dose, On Tue05/16/25 at 0915, Shake well before using. $ Given 05/16/2025 9:05 AM CDT 1.5 mL polyethylene glycol 3350 (Miralax) packet 17 g 17 g, Enteral Tube, DAILY, First dose on Tue05/17/25 at 1815, Until Discontinued, 17 g dose: mix in 8 ounces of water, juice, soda, coffee or tea prior to administration. For bowel prep check for other instructions. $ Given 05/22/2025 8:04 AM CDT 17 g NG T ube $ Given 05/21/2025 9:02 AM CDT 17 g NG Tube $ Given 05/20/2025 8:44 AM CDT 17 g NG Tube polyethylene glycol 3350 (Miralax) packet 17 g 17 g, Enteral Tube, 2 TIMES DAILY, First dose (after last modification) on Tue05/22/25 at 2100, Until Discontinued, 17 g dose: mix in 8 ounces of water, juice, soda, coffee or tea prior to administration. For bowel prep check for other instructions. $ Given 05/24/2025 7:42 AM CDT 17 g NG Tube $ Given 05/23/2025 9:22 PM CDT 17 g NG Tube $ Given 05/23/2025 8:44 AM CDT 17 g OG Tube polyethylene glycol 3350 (Miralax) packet 17 g 17 g, Enteral Tube, 2 TIMES DAILY, First dose (after last modification) on Tue05/24/25 at 2100, Until Discontinued, 17 g dose: mix in 8 ounces of water, juice, soda, coffee or tea prior to administration. For bowel prep check for other instructions. $ Given 05/26/2025 8:39 AM CDT 17 g NG Tube $ Given 05/25/2025 9:51 PM CDT 17 g NG Tube $ Given 05/25/2025 8:51 AM CDT 17 g NG Tube polyethylene glycol 3350 (Miralax) packet 17 g 17 g, Oral, 2 TIMES DAILY, First dose (after last modification) on Tue05/26/25 at 2100, Until Discontinued, 17 g dose: mix in 8 ounces of water, juice, soda, coffee or tea prior to administration. For bowel prep check for other instructions. $ Given 05/28/2025 8:27 AM CDT 17 g $ Given 05/27/2025 9:56 PM CDT 17 g $ Given 05/27/2025 9:03 AM CDT 17 g polyethylene glycol 3350 (Miralax) packet 17 g 17 g, Oral, DAILY, First dose (after last modification) on Tue05/29/25 at 0900, Until Discontinued, 17 g dose: mix in 8 ounces of water, juice, soda, coffee or tea prior to administration. For bowel prep check for other instructions. $ Given 06/06/2025 9:48 AM CDT 17 g $ Given 06/05/2025 8:44 AM CDT 17 g $ Given 06/02/2025 8:24 AM CDT 17 g potassium chloride (Klor-Con) packet 40 mEq 40 mEq, Enteral Tube, EVERY 4 HOURS, 2 doses, First dose on Tue05/20/25 at 0000, Last dose on Tue05/20/25 at 0400, Mix one packet in at least 4 oz of cold water or beverage of choice. $ Given 05/20/2025 12:34 AM CDT 40 mEq NG Tube potassium chloride (Klor-Con) packet 40 mEq 40 mEq, Oral, ONCE, 1 dose, On Tue05/23/25 at 1915, Mix one packet in at least 4 oz of cold water or beverage of choice. $ Given 05/23/2025 7:00 PM CDT 40 mEq potassium chloride 20 mEq in 100 mL SW bolus 20 mEq, at 50 mL/hr, Administer over 2 Hours, Intravenous, ONCE, 1 dose, On Tue05/17/25 at 0730 $ New Bag/Syringe 05/17/2025 8:00 AM CDT 20 mEq 50 mL/hr potassium chloride 40 mEq in 270 mL bolus 40 mEq, at 67.5 mL/hr, Administer over 4 Hours, Intravenous, ONCE, 1 dose, On Tue05/17/25 at 1945 $ New Bag/Syringe 05/17/2025 10:53 PM CDT 40 mEq 67.5 mL/hr potassium chloride 40 mEq in 270 mL bolus 40 mEq, at 67.5 mL/hr, Administer over 4 Hours, Intravenous, ONCE, 1 dose, On 05/18/25 at 0815 Current Rate 05/18/2025 10:45 AM CDT 67.5 mL/hr $ New Bag/Syringe 05/18/2025 8:50 AM CDT 40 mEq 67.5 m L/hr potassium chloride 40 mEq in 270 mL bolus 40 mEq, at 67.5 mL/hr, Administer over 4 Hours, Intravenous, ONCE, 1 dose, On Tue05/19/25 at 2245 Current Rate 05/20/2025 2:00 AM CDT 67 .5 mL/hr Current Rate 05/20/2025 1:00 AM CDT 67.5 mL/hr Current Rate 05/20/2025 12:00 AM CDT 67.5 mL/hr potassium chloride 40 mEq in 270 mL bolus 40 mEq, at 67.5 mL/hr, Administer over 4 Hours, Intravenous, ONCE, 1 dose, On Tue05/20/25 at 1830 Current Rate 05/20/2025 10:00 PM CDT 67.5 mL/hr Current Rate 05/20/2025 9:00 PM CDT 67.5 mL/hr $ New Bag/Syringe 05/20/2025 6:46 PM CDT 40 mEq 67.5 m L/hr potassium chloride 40 mEq in 270 mL bolus 40 mEq, at 67.5 mL/hr, Administer over 4 Hours, Intravenous, ONCE, 1 dose, On [place] 05/23/25 at 0630 Current Rate 05/23/2025 8:06 AM CDT 67 .5 mL/hr $ New Bag/Syringe 05/23/2025 6:30 AM CDT 40 mEq 67.5 m L/hr potassium chloride ER (Klor-Con M) tablet 40 mEq 40 mEq, Oral, ONCE, 1 dose, On 05/25/25 at 0745, Do not crush or chew. $ Given 05/25/2025 8:51 AM CDT 40 mEq potassium phosphate 30 mmol in d5w 260 mL bolus premix 30 mmol, at 43.33 mL/hr, Administer over 6 Hours, Intravenous, ONCE, 1 dose, On Tue05/17/25 at 1745, 3 mmol phosphate = 4.4 mEq potassium Current Rate 05/18/2025 12:00 AM CDT 43.33 mL/hr Current Rate 05/17/2025 11:00 PM CDT 43.33 mL/h r Current Rate 05/17/2025 7:00 PM CDT 43.33 mL/hr potassium phosphate 30 mmol in d5w 260 mL bolus premix 30 mmol, at 43.33 mL/hr, Administer over 6 Hours, Intravenous, ONCE, 1 dose, On Tue05/22/25 at 0730, 3 mmol phosphate = 4.4 mEq potassium Current Rate 05/22/2025 12:04 PM CDT 43.33 mL/hr Current Rate 05/22/2025 12:00 PM CDT 43.33 mL/h r Current Rate 05/22/2025 11:02 AM CDT 43.33 mL/h r potassium phosphate 30 mmol in d5w 260 mL bolus premix 30 mmol, at 43.33 mL/hr, Administer over 6 Hours, Intravenous, ONCE, 1 dose, On 05/25/25 at 0830, 3 mmol phosphate = 4.4 mEq potassium $ New Bag/Syringe 05/25/2025 8:50 AM CDT 30 mmol 43.33 mL/hr propofol (Diprivan) 1000 mg in 100 mL infusion ADS Med 1 dose, Starting on Tue05/17/25 at 0320, Until Tue05/17/25 at 0330, Created by cabinet override Vial and Tubing should be changed and/or discarded every 12 hours. propofol (Diprivan) 1000 mg in 100 mL infusion 0-50 mcg/kg/min 120.7 kg (0-36.21 mL/hr), Intravenous, CONTINUOUS, Starting on Tue05/17/25 at 0400, Until 05/18/25 at 1524, Patient must be mechanically ventilated Above RASS goal: Assess and treat pain first if CPOT greater than 2. If agitation persists increase rate per order. At RASS goal and no change in 4 hours: Decrease rate per order. Below RASS goal (unarousable): Hold infusion until at goal RASS then restart at 50% previous rate. If significant hemodynamic changes notify physician for instructions. Notify physician for inability to reach goals despite maximal dosage. Note: The CPOT goal should be achieved first with the use of the ordered analgesic medication prior to targeting RASS goal with the sedative. Vial and Tubing should be changed and/or discarded every 12 hours., Titration Parameters: Standard Parameters, Indication: Sedation, Initiate infusion at: 5 mcg/kg/min, Titrate infusion by: 5 mcg/kg/min, Titrate every: 2 minutes, Notify physician if: Unachievable RASS goal despite max dose, Titration Priority: 1st, Restart Infusion: Medication may be restarted at last dose/rate administered before titrated to off. If infusion has been off for 4 or more hours, contact provider prior to restarting infusion. Current Rate 05/18/2025 3:39 PM CDT 20 mcg/kg/min 14.48 mL/hr Rate Change 05/18/2025 3:17 PM CDT 20 mcg/kg/min 14.48 mL/ hr Restarted 05/18/2025 3:17 PM CDT 25 mcg/kg/min 18.11 mL/h r propofol (Diprivan) 1000 mg in 100 mL infusion 0-50 mcg/kg/min 120.7 kg (0-36.21 mL/hr), Intravenous, CONTINUOUS, Starting on 05/18/25 at 1530, Until 05/21/25 at 1426, Patient must be mechanically ventilated Above RASS goal: Assess and treat pain first if CPOT greater than 2. If agitation persists increase rate per order. At RASS goal and no change in 4 hours: Decrease rate per order. Below RASS goal (unarousable): Hold infusion until at goal RASS then restart at 50% previous rate. If significant hemodynamic changes notify physician for instructions. Notify physician for inability to reach goals despite maximal dosage. Note: The CPOT goal should be achieved first with the use of the ordered analgesic medication prior to targeting RASS goal with the sedative. Vial and Tubing should be changed and/or discarded every 12 hours., Titration Parameters: Standard Parameters, Indication: Sedation, Initiate infusion at: 5 mcg/kg/min, Titrate infusion by: 5 mcg/kg/min, Titrate every: 2 minutes, Notify physician if: Unachievable RASS goal despite max dose, Titration Priority: 2nd, Restart Infusion: Medication may be restarted at last dose/rate administered before titrated to off. If infusion has been off for 4 or more hours, contact provider prior to restarting infusion., On hold since Tue05/20/2025 at 1457 until manually unheld Rate Change 05/18/2025 5:01 PM CDT 10 mcg/kg/min 7.24 mL/hr Rate Change 05/18/2025 4:31 PM CDT 15 mcg/kg/min 10.86 mL/ hr Current Rate 05/18/2025 4:21 PM CDT 20 mcg/kg/min 14.48 mL /hr rivaroxaban (Xarelto) tablet 20 mg 20 mg, Enteral Tube, EVERY EVENING, First dose (after last modification) on Tue05/18/25 at 1700, Until Discontinued, For tube administration, please refer to the MAR References links: Administration Dose of 15 mg or greater should be taken with food $ Given 05/23/2025 4:10 PM CDT 20 mg OG Tube $ Given 05/22/2025 4:54 PM CDT 20 mg NG Tube $ Given 05/21/2025 5:49 PM CDT 20 mg NG Tube rivaroxaban (Xarelto) tablet 20 mg 20 mg, Enteral Tube, EVERY EVENING, First dose (after last modification) on Tue05/24/25 at 1700, Until Discontinued, For tube administration, please refer to the MAR References links: Administration Dose of 15 mg or greater should be taken with food $ Given 05/25/2025 5:15 PM CDT 20 mg NG Tube $ Given 05/24/2025 4:49 PM CDT 20 mg NG Tube rocuronium (Zemuron) injection Intravenous, CODE PRN, Starting on Tue05/17/25 at 0326, Until Tue05/17/25 at 0326 $ Given 05/17/2025 3:26 AM CDT 100 mg sacubitril-valsartan (Entresto) 24-26 MG tablet 0.5 tablet 0.5 tablet, Oral, 2 TIMES DAILY, First dose on Tue05/26/25 at 1245, Until Discontinued $ Given 06/06/2025 9:46 AM CDT 0.5 tablets $ Given 06/05/2025 8:06 PM CDT 0.5 tablets $ Given 06/04/2025 8:51 PM CDT 0.5 tablets senna (Senokot) tablet 17.2 mg 17.2 mg, Oral, DAILY, First dose on Tue05/22/25 at 1145, Until Discontinued $ Given 05/24/2025 7:44 AM CDT 17.2 mg NG Tu be $ Given 05/23/2025 8:42 AM CDT 17.2 mg $ Given 05/22/2025 12:04 PM CDT 17.2 mg N G Tube senna (Senokot) tablet 17.2 mg 17.2 mg, Enteral Tube, 2 TIMES DAILY, First dose (after last modification) on Tue05/24/25 at 2100, Until Discontinued $ Given 05/26/2025 8:38 AM CDT 17.2 mg NG Tube $ Given 05/25/2025 9:51 PM CDT 17.2 mg NG Tube $ Given 05/25/2025 8:52 AM CDT 17.2 mg NG Tube senna (Senokot) tablet 17.2 mg 17.2 mg, Oral, 2 TIMES DAILY, First dose (after last modification) on Tue05/26/25 at 2100, Until Discontinued $ Given 05/28/2025 8:27 AM CDT 17.2 mg $ Given 05/27/2025 9:57 PM CDT 17.2 mg $ Given 05/27/2025 9:03 AM CDT 17.2 mg senna (Senokot) tablet 17.2 mg 17.2 mg, Oral, DAILY, First dose (after last modification) on Tue05/29/25 at 0900, Until Discontinued $ Given 06/06/2025 9:46 AM CDT 17.2 mg $ Given 06/05/2025 8:45 AM CDT 17.2 mg $ Given 06/02/2025 8:28 AM CDT 17.2 mg sodium - potassium phosphates (K Phos Neutral) tablet 1 tablet 1 tablet, Oral, ONCE, 1 dose, On Tue05/26/25 at 1900, Contains Phos 8 mmol, K+ 1.1 mEq, Na 13 mEq per tablet $ Given 05/26/2025 8:17 PM CDT 1 tablet sodium - potassium phosphates (K Phos Neutral) tablet 2 tablet 2 tablet, Enteral Tube, ONCE, 1 dose, On Tue05/20/25 at 0745, Contains Phos 8 mmol, K+ 1.1 mEq, Na 13 mEq per tablet $ Given 05/20/2025 8:44 AM CDT 2 tablets NG Tube sodium - potassium phosphates (K Phos Neutral) tablet 2 tablet 2 tablet, Enteral Tube, ONCE, 1 dose, On Tue05/22/25 at 0730, Contains Phos 8 mmol, K+ 1.1 mEq, Na 13 mEq per tablet $ Given 05/22/2025 7:31 AM CDT 2 tablets NG Tube sodium phosphate 40 mmol in dextrose 5 % 263.3 mL bolus 40 mmol, at 43.88 mL/hr, Administer over 6 Hours, Intravenous, ONCE, 1 dose, On Tue05/20/25 at 1030 $ New Bag/Syringe 05/20/2025 10:39 AM CDT 40 mmol 43.88 mL/hr sodium phosphate 40 mmol in dextrose 5 % 263.3 mL bolus 40 mmol, at 43.88 mL/hr, Administer over 6 Hours, Intravenous, ONCE, 1 dose, On Tue05/23/25 at 0815 $ New Bag/Syringe 05/23/2025 10:08 AM CDT 40 mmol 43.88 mL/hr sodium zirconium cyclosilicate (Lokelma) packet 5 g 5 g, Oral, 3 TIMES DAILY BEFORE MEALS, First dose (after last modification) on Tue05/16/25 at 0300, Until Discontinued, Empty entire contents of the packet(s) into a glass with greater than or equal to 3 tablespoons (45 mL) of water. Stir well and drink immediately; if powder remains in the glass, add water, stir and drink immediately; repeat until no powder remains. Administer other oral meds at least 2 hours before or 2 hours after, On hold since Tue05/17/2025 at 0714 until manually unheld $ Given 05/16/2025 3:00 AM CDT 5 g spironolactone (Aldactone) tablet 12.5 mg 12.5 mg, Oral, DAILY, First dose (after last modification) on Tue05/25/25 at 1015, Until Discontinued $ Given 05/30/2025 9:42 AM CDT 12.5 mg $ Given 05/29/2025 8:54 AM CDT 12.5 mg $ Given 05/28/2025 8:28 AM CDT 12.5 mg vancomycin (Vancocin) 1,000 mg in NaCl IV 0.9 % 250 mL IVPB 1,000 mg, at 250 mL/hr, Intravenous, EVERY 12 HOURS, First dose on 05/18/25 at 0800, Until Discontinued, Indication for anti-infective therapy: Suspected infection, Site of anti-infective therapy: Blood $ New Bag/Syringe 05/18/2025 8:56 AM CDT 1,000 mg 250 mL/hr vancomycin (Vancocin) 2,500 mg in 550 mL IVPB 2,500 mg, at 220 mL/hr, Intravenous, ONCE, 1 dose, On Tue05/17/25 at 2015, Indication for anti-infective therapy: Suspected infection, Site of anti-infective therapy: Blood Current Rate 05/17/2025 11:00 PM CDT 220 mL/hr $ New Bag/Syringe 05/17/2025 8:41 PM CDT 2,500 mg 220 mL /hr vitamin D3 (Cholecalciferol) tablet 5,000 Units 5,000 Units, Enteral Tube, DAILY, First dose (after last modification) on 05/18/25 at 0900, Until Discontinued, 5000 units = 125 mcg $ Given 05/24/2025 7:43 AM CDT 5,000 Units NG Tube $ Given 05/23/2025 8:43 AM CDT 5,000 Units O G Tube $ Given 05/22/2025 8:04 AM CDT 5,000 Units N G Tube vitamin D3 (Cholecalciferol) tablet 5,000 Units 5,000 Units, Oral, DAILY, First dose (after last modification) on 05/25/25 at 0900, Until Discontinued, 5000 units = 125 mcg $ Given 06/06/2025 9:47 AM CDT 5,000 Units $ Given 06/05/2025 8:45 AM CDT 5,000 Units $ Given 06/04/2025 9:13 AM CDT 5,000 Units documented in this encounter Active and Recently Administered Medications Times are shown in CDT. Scheduled Medication Order 06/04/2025 06/05/2025 06/06/2025 0.9% NaCl injection 3 mL(Linked Group 1) 3 mL, Intracatheter, EVERY 8 HOURS, First dose on Tue05/15/25 at 1445, Until Discontinued, Flush peripheral IV catheter with 3 mL of normal saline every 8 hours. 0746 (Not Administered - Provider: Ynes Muniz RN - Reason: Patient sleeping)1253 ($ Given - Provider: Ynes Muniz RN)8 (Not Administered - Provider: Florentino Love RN - Reason: Other - Comment: no IV) 0543 (Not Administered - Provider: Florentino Love RN - Reason: Other - Comment: NO IV)1234 ($ Given - Provider: Wandy Caldwell RN)2015 (Not Administered - Provider: Florentino Love RN - Reason: Other - Comment: no iv) 0517 (Not Administered - Provider: Florentino Love RN - Reason: Other - Comment: No IV)1329 (Not Administered - Provider: Dariel Stanley RN - Reason: Other) apixaban (Eliquis) tablet 5 mg 5 mg, Oral, 2 TIMES DAILY, First dose on Tue05/26/25 at 1800, Until Discontinued 912 ($ Given - Provider: Ynes Muniz RN)2050 ($ Given - Provider: Florentino Love RN) 08 ($ Given - Provider: Wandy Caldwell, RN)2005 ($ Given - Provider: Florentino Love RN) 0946 ($ Given - Provider: Dariel Stanley RN) busPIRone (Buspar) tablet 10 mg 10 mg, Oral, 2 TIMES DAILY, First dose (after last modification) on Tue05/26/25 at 2100, Until Discontinued 912 ($ Given - Provider: Ynes Muniz RN)2050 ($ Given - Provider: Florentino Love RN) 08 ($ Given - Provider: Wandy Caldwell RN)2004 ($ Given - Provider: Florentino Love RN) 1157 (Not Administered - Provider: Dariel Stanley RN - Reason: Medication not available) cefadroxil (Duricef) capsule 500 mg 500 mg, Oral, 2 TIMES DAILY, First dose (after last modification) on Tue05/22/25 at 2100, Until Discontinued, Indication for anti-infective therapy: Chronic prophylaxis 912 ($ Given - Provider: Ynes Muniz RN)2051 ($ Given - Provider: Florentino Love RN) 0845 ($ Given - Provider: Wandy Caldwell RN)2005 ($ Given - Provider: Florentino Love, RN) 0946 ($ Given - Provider: Dariel Stanley, BROWN) cyanocobalamin (Vitamin B-12) tablet 500 mcg 500 mcg, Oral, DAILY, First dose (after last modification) on Tue05/27/25 at 0900, Until Discontinued 913 ($ Given - Provider: Ynes Muniz RN) 0845 ($ Given - Provider: Wandy Caldwell RN) 0946 ($ Given - Provider: Dariel Stanley RN) empagliflozin (Jardiance) tablet 10 mg 10 mg, Oral, DAILY, First dose (after last modification) on Tue05/27/25 at 0900, Until Discontinued, Restricted to the indication of Heart Failure and/or CKD only due to risk of hypoglycemic when used for DM in acute care settings. Indication for use? Heart Failure 912 ($ Given - Provider: Ynes Muniz RN) 0845 ($ Given - Provider: Wandy Caldwell RN) 0947 ($ Given - Provider: Dariel Stanley RN) escitalopram (Lexapro) tablet 10 mg 10 mg, Oral, DAILY, First dose on Rowena 05/16/25 at 0900, Until Discontinued 912 ($ Given - Provider: Ynes Muniz RN) 0845 ($ Given - Provider: Wandy Caldwell RN) 0947 ($ Given - Provider: Dariel Stanley RN) guaiFENesin ER 12hr (Mucinex) tablet 600 mg 600 mg, Oral, EVERY 12 HOURS, First dose on 05/25/25 at 1445, Until Discontinued, Do not crush, chew, or cut in half. 09 ($ Given - Provider: Ynes Muniz RN)2050 ($ Given - Provider: Florentino Love RN) 08 ($ Given - Provider: Wandy Caldwell, BROWN)2005 ($ Given - Provider: Florentino Love, RN) 0948 ($ Given - Provider: Dariel Stanley RN) insulin aspart (NovoLOG) pen 0-18 Units 0-18 Units, Subcutaneous, 3 TIMES DAILY WITH MEALS, First dose (after last modification) on Tue05/27/25 at 0800, Until Discontinued, High Dose: Correction Insulin Bedside glucose should be done within 30-60 minutes of correction insulin administration. BG (mg/dL) Corrective Action LESS than 70 follow Hypoglycemic guidelines, 70-140 NO Correction insulin, 141-180 GIVE 3 units of insulin, 181-220 GIVE 6 units of insulin, 221-260 GIVE 9 units of insulin, 261-300 GIVE 12 units of insulin, 301-350 GIVE 15 units of insulin Greater than 350 GIVE 18 units of insulin and notify physician. , If the patient is NPO; DO NOT HOLD correction insulin If patient is eating meals and has orders for Mealtime insulin, combine and give at the same time. . WASTE DISPOSAL INSTRUCTIONS: Black Bin Disposal required. 0914 (Not Administered - Provider: Ynes Muniz RN - Reason: Per Administration Instructions)1252 ($ Given - Provider: Ynes Muniz RN)1747 ($ Given - Provider: Ynes Muniz RN) 0940 (Not Administered - Provider: Wandy Caldwell RN - Reason: Per Administration Instructions)1233 ($ Given - Provider: Wandy Caldwell RN)1745 (Not Administered - Provider: Wandy Caldwell RN - Reason: Per Administration Instructions) 0840 (Not Administered - Provider: Dariel Stanley RN - Reason: Other - Comment: bg 130)1232 ($ Given - Provider: Dariel Stanley RN) insulin glargine (Lantus) pen 5 Units (CANCELED) 5 Units, Subcutaneous, AT BEDTIME, First dose on Tue05/17/25 at 2100, Until Discontinued, Obtain current Blood Glucose if necessary . WASTE DISPOSAL INSTRUCTIONS: Black Bin Disposal required. 2052 ($ Given - Provider: Florentino Love RN) 2013 ($ Given - Provider: Florentino Love RN) insulin glargine (Lantus) pen 6 Units 6 Units, Subcutaneous, AT BEDTIME, First dose (after last modification) on Tue06/06/25 at 2100, Until Discontinued, Obtain current Blood Glucose if necessary . WASTE DISPOSAL INSTRUCTIONS: Black Bin Disposal required. levothyroxine (Synthroid) tablet 75 mcg 75 mcg, Oral, EVERY MORNING, First dose (after last modification) on Tue05/29/25 at 0600, Until Discontinued, Take in the morning on an empty stomach. Do not give within 4 hours of antacids, iron or calcium supplements. 0607 ($ Given - Provider: Ramy Canseco RN) 0606 ($ Given - Provider: Florentino Love, RN) 0518 ($ Given - Provider: Florentino Love, RN) metoprolol succinate XL 24hr (Toprol XL) tablet 25 mg 25 mg, Oral, DAILY, First dose (after last modification) on Tue05/31/25 at 0915, Until Discontinued, May cut in half but do not crush or chew 09 ($ Given - Provider: Ynes Muniz RN) 0844 (Not Administered - Provider: Wandy Caldwell, RN - Reason: Patient Condition) 0946 ($ Given - Provider: Dariel Stanley, RN) patiromer (Veltassa) packet 8.4 g 8.4 g, Oral, DAILY at 1300, First dose on Tue06/02/25 at 0845, Until Discontinued, Measure 1/3 cup of water. Pour half into a glass, add Veltassa and stir. Add the remaining half and stir. The mixture will look cloudy. Add more water to the mixture as needed for desired consistency. Drink immediately. If powder remains in the glass after drinking, add more water, stir and drink immediately. Repeat as needed. Avoid taking other oral medications 3 hours before or after. Store packets in refrigerator. 1255 ($ Given - Provider: Ynes Muniz RN) 1302 ($ Given - Provider: Wandy Caldwell, RN) 1232 ($ Given - Provider: Dariel Stanley, RN) polyethylene glycol 3350 (Miralax) packet 17 g 17 g, Oral, DAILY, First dose (after last modification) on Tue05/29/25 at 0900, Until Discontinued, 17 g dose: mix in 8 ounces of water, juice, soda, coffee or tea prior to administration. For bowel prep check for other instructions. 0914 (Not Administered - Provider: Ynes Muniz RN - Reason: Refused-Patient) 0844 ($ Given - Provider: Wandy Caldwell, RN) 0948 ($ Given - Provider: Dariel Stanley, RN) sacubitril-valsartan (Entresto) 24-26 MG tablet 0.5 tablet 0.5 tablet, Oral, 2 TIMES DAILY, First dose on Tue05/26/25 at 1245, Until Discontinued 09 ($ Given - Provider: Ynes Muniz RN)2050 ($ Given - Provider: Florentino Love, RN) 0844 (Not Administered - Provider: Wandy Caldwell, BROWN - Reason: Patient Condition)2005 ($ Given - Provider: Florentino Love RN) 0946 ($ Given - Provider: Dariel Stanley, BROWN) senna (Senokot) tablet 17.2 mg 17.2 mg, Oral, DAILY, First dose (after last modification) on Tue05/29/25 at 0900, Until Discontinued 09 (Not Administered - Provider: Ynes Muniz RN - Reason: Refused-Patient) 0845 ($ Given - Provider: Wandy Caldwell, BROWN) 0946 ($ Given - Provider: Dariel Stanley, BROWN) vitamin D3 (Cholecalciferol) tablet 5,000 Units 5,000 Units, Oral, DAILY, First dose (after last modification) on Tue05/25/25 at 0900, Until Discontinued, 5000 units = 125 mcg 09 ($ Given - Provider: Ynes Muniz RN) 0845 ($ Given - Provider: Wandy Caldwell RN) 0947 ($ Given - Provider: Dariel Stanley, BROWN) PRN Medication Order 06/04/2025 06/05/2025 06/06/2025 0.9% NaCl injection 1-10 mL(Linked Group 1) 1-10 mL, Intracatheter, PRN, Other, peripheral line flush, Starting on Tue05/15/25 at 1412, Until Rowena 06/06/25 at 1825, Flush peripheral IV catheter with 1-10 mL of normal saline before and after medications and prn to clear blood from the line or to verify patency. acetaminophen (Tylenol) tablet 500 mg 500 mg, Oral, EVERY 6 HOURS PRN, Moderate Pain, Mild Pain, Starting on Tue05/15/25 at 2204, Until Rowena 06/06/25 at 1825, Patient preference for lesser PRN pain meds may be honored when the patient requests a less strong medication, a lower dose, or a less intrusive route of administration when the lesser drug, dose and route have been ordered for the patient. This patient request must be documented in the MAR. If both oral and IV options are ordered for the same pain severity, give oral first unless patient cannot tolerate oral intake albuterol HFA (Proventil; Ventolin; Proair) 108 (90 Base) MCG/ACT inhaler 2 puff 2 puff, Inhalation, EVERY 6 HOURS PRN, Shortness of Breath, Starting on Tue05/15/25 at 2203, Until Tue06/06/25 at 1825, Shake well before using. WASTE DISPOSAL INSTRUCTION: Send to Pharmacy for Disposal. dextrose IV 12.5 g(Linked Group 2) 12.5 g, Intravenous, PRN, Other, Bedside Glucose less than 70 mg/dL -If NOT able to eat and/or NPO and with IV Access, Starting on Tue05/15/25 at 1836, Until Tue06/06/25 at 182, If NOT able to eat and/or NPO and with IV Access: For Bedside Glucose 54-69 mg/dL give 12.5 g Dextrose IV STAT For Bedside Glucose LESS than 54 mg/dl verify with a second Bedside Glucose (from a different site) and give 25 g Dextrose IV STAT Re-check and Re-treat blood glucose EVERY , 10-25 minutes until blood glucose GREATER than or equal to 80 mg/dl. NOTIFY PROVIDER OF HYPOGLYCEMIC EVENT. dextrose IV 25 g(Linked Group 2) 25 g, Intravenous, PRN, Other, Bedside Glucose less than 70 mg/dL -If NOT able to eat and/or NPO and with IV Access, Starting on Tue05/15/25 at 1836, Until Tue06/06/25 at 1825, If NOT able to eat and/or NPO and with IV Access: For Bedside Glucose LESS than 54 mg/dl verify with a second Bedside Glucose (from a different site) and give 25 g Dextrose IV STAT Re-check and Re-treat blood glucose EVERY - 10-25 minutes until blood glucose GREATER than or equal to 80 mg/dl. - If repeat bedside glucose 54-79 give 12.5 g Dextrose IV STAT NOTIFY PROVIDER OF HYPOGLYCEMIC EVENT. glucagon (Glucagen) injection 1 mg(Linked Group 2) 1 mg, Subcutaneous, PRN, Bedside Glucose less than 70 mg/dL - If NOT able to eat and/or NPO and withOUT IV Access, Starting on Tue05/15/25 at 1836, Until Tue06/06/25 at 182, If NOT able to eat and/or NPO and NO IV Access: For Bedside glucose 54-69 mg/dL - Give 1 mg subcutaneous For Bedside Glucose LESS than 54 mg/dl - verify with a second bedside glucose (from a different site) - Give 1 mg subcutaneous Re-check and Re-treat blood glucose EVERY 10-25 minutes until blood glucose GREATER than or equal to 80 mg/dl. NOTIFY PROVIDER OF HYPOGLYCEMIC EVENT. Reconstitute vial with 1 mL of sterile water for injection for a final concentration of 1 mg/mL; shake vial gently; use immediately and discard unused portion glucose (Diabetic Use) oral gel Oral, PRN, Other, Bedside Glucose less than 70 mg/dL, Starting on Tue05/15/25 at 1836, Until Tue06/06/25 at 1825, If able to take oral medications: For Bedside Glucose 54 - 69 mg/dL Give 15 grams of oral carbohydrates - 1 glucose gel (see MAR) If patient refuses glucose gel, then offer: - 4 ounces of fruit juice OR - 4 ounces non-diet soda OR - 8 ounces of fat-free milk For Bedside Glucose LESS than 54 mg/dL verify with a second Bedside Glucose (from a different site) - If pt is symptomatic, do not delay treatment - If accuracy of the POC glucose is in question, confirm glucose with aSTAT laboratory test Give 30 grams of oral carbohydrates - 2 glucose gels (see MAR) If patient refuses glucose gel, then offer: - 8 ounces of fruit juice OR - 8 ounces non-diet soda OR - 16 ounces of fat-free milk Re-check and Re-treat blood glucose EVERY 10-25 minutes until blood glucose GREATER than or equal to 80 mg/dl. - If on recheck, bedside glucose 54-79 mg/dL - Give 15 grams of oral carbohydrates (see above for choices) NOTIFY PROVIDER OF HYPOGLYCEMIC EVENT. loperamide (Imodium) capsule 2 mg 2 mg, Oral, 4 TIMES DAILY PRN, Diarrhea, Starting on Tue05/30/25 at 0327, Until Tue06/06/25 at 1825, Max dose 16mg/day 0913 ($ Given - Provider: Ynes Muniz, BROWN)1252 ($ Given - Provider: Ynes Muniz, BROWN) ondansetron (disintegrating) (Zofran ODT) tablet 4 mg 4 mg, Oral, EVERY 6 HOURS PRN, Nausea/Vomiting, Starting on Tue06/03/25 at 1828, Until Tue06/06/25 at 1825, Dissolved orally on tongue Linked Groups Order Group 1: SALINE LOCK, INSERT AND MAINTAIN (CANCELED) Routine, CONTINUOUS, Starting on Tue05/15/25 at 1415, Until Specified, New collection, Task Completed: Yes And 0.9% NaCl injection 3 mLJump to med 3 mL, Intracatheter, EVERY 8 HOURS, First dose on Tue05/15/25 at 1445, Until Discontinued, Flush peripheral IV catheter with 3 mL of normal saline every 8 hours. And 0.9% NaCl injection 1-10 mLJump to med 1-10 mL, Intracatheter, PRN, Other, peripheral line flush, Starting on Tue05/15/25 at 1412, Until Tue06/06/25 at 1825, Flush peripheral IV catheter with 1-10 mL of normal saline before and after medications and prn to clear blood from the line or to verify patency. Group 2: dextrose IV 12.5 gJump to med 12.5 g, Intravenous, PRN, Other, Bedside Glucose less than 70 mg/dL -If NOT able to eat and/or NPO and with IV Access, Starting on Tue05/15/25 at 1836, Until Tue06/06/25 at 182, If NOT able to eat and/or NPO and with IV Access: For Bedside Glucose 54-69 mg/dL give 12.5 g Dextrose IV STAT For Bedside Glucose LESS than 54 mg/dl verify with a second Bedside Glucose (from a different site) and give 25 g Dextrose IV STAT Re-check and Re-treat blood glucose EVERY , 10-25 minutes until blood glucose GREATER than or equal to 80 mg/dl. NOTIFY PROVIDER OF HYPOGLYCEMIC EVENT. Or dextrose IV 25 gJump to med 25 g, Intravenous, PRN, Other, Bedside Glucose less than 70 mg/dL -If NOT able to eat and/or NPO and with IV Access, Starting on Tue05/15/25 at 1836, Until Tue06/06/25 at 1825, If NOT able to eat and/or NPO and with IV Access: For Bedside Glucose LESS than 54 mg/dl verify with a second Bedside Glucose (from a different site) and give 25 g Dextrose IV STAT Re-check and Re-treat blood glucose EVERY - 10-25 minutes until blood glucose GREATER than or equal to 80 mg/dl. - If repeat bedside glucose 54- 79 give 12.5 g Dextrose IV STAT NOTIFY PROVIDER OF HYPOGLYCEMIC EVENT. Or glucagon (Glucagen) injection 1 mgJump to med 1 mg, Subcutaneous, PRN, Bedside Glucose less than 70 mg/dL - If NOT able to eat and/or NPO and withOUT IV Access, Starting on 05/15/25 at 1836, Until Rowena 06/06/25 at 1825, If NOT able to eat and/or NPO and NO IV Access: For Bedside glucose 54- 69 mg/dL - Give 1 mg subcutaneous For Bedside Glucose LESS than 54 mg/dl - verify with a second bedside glucose (from a different site) - Give 1 mg subcutaneous Re-check and Re-treat blood glucose EVERY 10-25 minutes until blood glucose GREATER than or equal to 80 mg/dl. NOTIFY PROVIDER OF HYPOGLYCEMIC EVENT. Reconstitute vial with 1 mL of sterile water for injection for a final concentration of 1 mg/mL; shake vial gently; use immediately and discard unused portion documented in this encounter Additional Health Concerns Infection Onset Date Last Indicated Resolved Time COVID-19 Under Investigation 05/27/2025 05/27/2025 05/27/2025 3:18 PM CDT documented as of this encounter Care Teams Copper Plater Relationship Specialty Start Date End Date Fredis Klein APRN-ORNAMENTAL MACHINE OPERATOR [address] [place] [address] PCP - General 08/08/18 documented as of this encounter
--- NOTE | ~2025-06-07 | CT_ITS ---
EXAMINATION: CT brain wo miguel, 06/08/2025 14:30 CDT HISTORY: ams COMPARISON: No comparisons available. Technique: Axial images obtained of the brain without contrast. One or more of the following dose reduction techniques were used: automated exposure control, adjustment of the mA and/or kV according to patient size, use of iterative reconstruction technique. Findings: No acute infarct or parenchymal hemorrhage. No abnormal mass or mass effect. No midline shift. No extra-axial fluid collections. No hydrocephalus. Mastoid air cells unremarkable. Sinuses and orbits unremarkable. No acute fracture. No significant facial or scalp soft tissue swelling evident. No radiopaque foreign body is seen. Impression: 1.No acute intracranial abnormality. Reviewed, dictated and finalized at location A. Impression: 1.No acute intracranial abnormality.
--- OUTSIDE RECORDS SUMMARY | 2025-06-07 17:55 | XMS_ITS | Encounter Summary ---
Author Organization [facility] Address [address] [place] [address] Phone Care Team Providers Care Assistant Professor Of Art Name Role Phone Oswaldo Serrano MD Primary Care Provider [phone] Angel Crowe DPM Unavailable [phone] Mora Fritz Unavailable Unavailable Ok Jorge MD Unavailable Orlin Urbina APRN, REFRACTORY REPAIRER Unavailable [phone] Reason for Visit * Reason Comments Medication Refill Encounter Details Date Type Department Care Team (Late st Contact Info) Description 01/21/2022 Refill [facility] - Family Medicine - [place] [address] [place] [address] Connor Yuan APRN, REFRACTORY REPAIRER [address] [address] Medication Refill Social History Tobacco Use Types [...] Care Team (Late st Contact Info) Description 07/17/2025 2:45 PM CDT Office Visit [facility] - Family Medicine - [place] [address] [place] [address] Oswaldo Serrano MD [address] [address] 07/22/2025 2:30 PM CDT Office Visit [facility] - Endocrinology - [place] [address] [place] [address] Ok Jorge MD #[address] [address] 07/30/2025 2:45 PM CDT Office Visit [facility] UROLOGY [address] [place] [address] Orlin Urbina, PHARMACY DIRECTOR, REFRACTORY REPAIRER [address] [place] [address] documented as of this encounter Visit Diagnoses Diagnosis Chronic congestive heart failure, unspecified heart failure type (HCC) documented in this encounter Additional Health Concerns Assessment Noted Time PHQ-9 Depression Total Score: 2 07/18/20 20 4:26 PM CDT documented as of this encounter Care Teams Assistant Professor Of Art Relationship Specialty Start Date End Date Oswaldo Serrano MD [address]2 [facility] [address] [place] [address] PCP - General Family Medicine 05/19/17 Angel Crowe DPM [address]2 [facility] [address] [place] [address] Consulting Physician Podiatry 06/16/17 Mora Fritz [place] Behavioral Health Navigator 06/15/18 Ok Jorge MD [address]2 [facility] [address] [place] [address] Consulting Physician Endocrinology 05/12/22 Orlin Urbina, PHARMACY DIRECTOR, REFRACTORY REPAIRER [address] [place] [address] Nurse Practitioner Advanced Practice Nurse 11/09/22 documented as of this encounter
--- OUTSIDE RECORDS SUMMARY | 2025-06-07 17:55 | XMS_ITS | Encounter Summary ---
Author Organization [facility] Address [address] [place] [address] Phone Care Team Providers Care Farm Machinery Set Up Mechanic Name Role Phone Oswaldo Serrano MD Primary Care Provider [phone] Angel Crowe DPM Unavailable [phone] Mora Fritz Unavailable Unavailable Ok Jorge MD Unavailable Orlin Urbina APRN, DISPLAY MECHANIC Unavailable [phone] Reason for Visit * Reason Comments Medication Refill Encounter Details Date Type Department Care Team (Late st Contact Info) Description 11/29/2024 Refill [facility] [place] [facility] [address] [place] [address] Orlin Urbina APRN, DISPLAY MECHANIC [address] [place] [address] Medication Refill Social History Tobacco Use Types Packs/Day Years Used Date Smoking Tobacco: Never Smokeless Tobacco: Never Alcohol Use Standard Drinks/Week Comments No 0 (1 standard drink = 0.6 oz pur e alcohol) [facility] Utilities Answer Date Recorded In the past 12 months has e electric, gas, oil, or water company threatened to shut off services in your home? No 11/29/2024 Social Connection and Isolation Panel Answer Date Recorded In a typical week, how many times do you talk on the phone with family, friends, or neighbors? More than three times a week 11/29/2024 How often do you get togethe r with friends or relatives? More than three times a week 11/29/2024 How often do you attend chur ch or restoration services? Never 11/29/2024 Do you belong to any clubs o r organizations such as taoism groups, unions, fraternal or athletic groups, or [...] Total Score - Questions 1-9 2 10/11 [facility] [place] of Occupat ional Health - Occupational Stress [...] place to sleep or slept in a halfway (including now)? No 11/09/2023 Housing Stability Vital [...] living in a halfway (including now)? No 11/29/2024 Education Answer Date [...] as of this encounter Functional Status * AUDIT-C Score Answer Date of Assessment Author 0 11/29/2024 11:52 AM [employer] Background * Q1: How often do you have a drink containing alcohol? Answer Date of Assessment Author Never 11/29/2024 11:52 AM ACCOUNT SERVICE 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 [employer], System Background * Q2: How many drinks containing alcohol do you have on a typical day when you are drinking? Answer Date of Assessment Author Patient does not drink 11/29/2024 11:52 AM ACCOUNT SERVICE 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 [employer], System Background * Q3: How often do you have six or more drinks on one occasion? Answer Date of Assessment Author Never 11/29/2024 11:52 AM ACCOUNT SERVICE 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 [employer], System Background documented as of this encounter Miscellaneous Notes * Telephone Encounter - Orlin Urbina APRN, CNP - 12/10/2024 10:18 AM ACCOUNT SERVICE 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 duplicate UNT SERVICE 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 * Telephone Encounter - Stephanie Ortiz RN [...] 08/10/24 Office Visit Connor Yuan APRN, CNP [facility] [place] 03/08/24 Telemedicine Oswaldo Serrano MD [facility] 02/23/24 Office Visit Oswaldo Serrano MD [facility] 01/24/24 Office Visit Orlin Urbina APRN, CNP [facility] [place] Showing recent visits within past 365 days and meeting all other requirements Today's Visits Date Type Provider Dept 11/29/24 Appointment [facility] Show[facility] today's visits and meeting all other requirements Future Appointments No visits were found meeting these conditions. Showing future appointments within next 90 days and meeting all other requirements UNT SERVICE 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 documented in this encounter Plan of Treatment Upcoming Encounters Date Type Department Care Team (Late st Contact Info) Description 07/17/2025 2:45 PM CDT Office Visit [facility] - Family Medicine - [place] [address] [place] [address] Oswaldo Serrano MD [address]2 [facility] [address] [place] [address] 07/22/2025 2:30 PM CDT Office Visit [facility] - Endocrinology - [place] [address] [place] [address] Ok Jorge MD [address]2 [facility] [address] [place] [address] 07/30/2025 2:45 PM CDT Office Visit [facility] [address] [place] [id number] Orlin Urbina, UNIVERSAL GRINDER TOOL, DISPLAY MECHANIC [address] [place] [address] documented as of this encounter Visit Diagnoses Not on filedocumented in this encounter Additional Health Concerns Assessment Noted Time PHQ-9 Depression Total Score: 2 11/01/19 3:32 PM ACCOUNT SERVICE 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 documented as of this encounter Care Teams Farm Machinery Set Up Mechanic Relationship Specialty Start Date End Date Oswaldo Serrano MD [address]2 [facility] [address] [place] [address] PCP - General Family Medicine 05/19/17 Angel Crowe DPM #[address] [address] Consulting Physician Podiatry 06/16/17 Mora Fritz [place] Behavioral Health Navigator 06/15/18 Ok Jorge MD #[address] [address] Consulting Physician Endocrinology 05/12/22 Orlin Urbina APRN, DISPLAY MECHANIC [address] [place] [address] Nurse Practitioner Advanced Practice Nurse 11/09/22 documented as of this encounter
--- OUTSIDE RECORDS SUMMARY | 2025-06-07 17:55 | XMS_ITS | Encounter Summary ---
Author Organization [facility] Address [address] [place] [address] Phone Care Team Providers Care Vp Strategy Name Role Phone Oswaldo Serrano MD Primary Care Provider Angel Crowe DPM Unavailable [phone] Mora Fritz Unavailable Unavailable Ok Jorge MD Unavailable Orlin Urbina APRN, SURGICAL CONSULTANT Unavailable [phone] Reason for Visit * Reason Comments Medication Refill Encounter Details Date Type Department Care Team (Late st Contact Info) Description 09/17/2020 Refill [facility] - [place] #2 [place] [address] Oswaldo Serrano MD #[address] [address] Medication Refill Social History Tobacco Use Types [...] COVID-19? No / Unsure 09/11/2020 1:18 PM CADMIUM PLATER documented as of this encounter Miscellaneous Notes [...] type 2 diabetes mellitus (HCC) [facility] - Family Medicine - Connor Hutchinson APN, CNP 2 months ago Acute diarrhea [facility] Family Medicine - Connor Hutchinson APN, CNP 3 months ago Tick bite, initial encounter [facility] Family [facility] - Oswaldo Moreno MD 3 months ago Diarrhea, unspecified type [facility] Family Medicine - Oswaldo Moreno MD Upcoming Appointments Future Appointments In 1 month Ok Jorge MD [facility] - Endocrinology - [facility] RENTAL AGENT - Recent and Past Visits Recent Visits Date Type Provider Dept 09/16/20 Telemedicine Oswaldo Serrano MD [facility] 07/18/20 Office Visit Connor Yuan APN, YUDI [facility] [place] 07/11/20 Telemedicine Connor Yuan APN, YUDI [facility] 06/09/20 Office Visit Oswaldo Serrano, [facility] 05/29/20 Telemedicine Oswaldo Serrano, [facility] 04/07/20 Office Visit Connor Yuan APN, SURGICAL CONSULTANT [facility] [place] 03/18/20 Telemedicine Oswaldo Serrano, [facility] [place] 12/14/19 Office Visit Earl Merry Hendrickson, AIDEN [facility] [place] 08/28/19 Office Visit Oswaldo Serrano, [facility] [place] 06/22/19 Office Visit Connor Yuan APN, SURGICAL CONSULTANT [facility] [place] Showing recent visits within past 460 days with a meds authorizing provider and meeting all other requirements Future Appointments No visits were found meeting these conditions. Showing future appointments within next 90 days with a meds authorizing provider and meeting all other requirements IUM PLATER documented in this encounter Plan of Treatment Upcoming Encounters Date Type Department Care Team (Late st Contact Info) Description 07/17/2025 2:45 PM CDT Office Visit [facility] - Family Medicine - [place] #2 [place] [address] Oswaldo Serrano MD #2 [facility] [address] [place] [address] 07/22/2025 2:30 PM CDT Office Visit [facility] - Endocrinology - [place] #2 [place] [address] Ok Jorge MD #2 [facility] [address] [place] [address] 07/30/2025 2:45 PM CDT Office Visit [facility] [place] [facility] #2 [place] [address] Orlin Urbina, HAIR ROOTING MACHINE OPERATOR, SURGICAL CONSULTANT #2 [place] [address] documented as of this encounter Visit Diagnoses Not on filedocumented in this encounter Additional Health Concerns Infection Onset Date Last Indicated Resolved Time COVID - 19 10/09/2020 10/09/2020 10/11/2020 5:17 AM CADMIUM PLATER COVID - 19 11/12/2020 11/12/2020 11/16/2020 9:49 AM CADMIUM PLATER COVID - 19 07/28/2021 07/29/2021 08/17/2021 12:1 6 AM CADMIUM PLATER Assessment Noted Time PHQ-9 Depression Total Score: 2 07/18/20 20 4:26 PM CDT documented as of this encounter Care Teams Vp Strategy Relationship Specialty Start Date End Date Oswaldo Serrano MD #2 [facility] [address] [place] [address] PCP - General Family Medicine 05/19/17 Angel Crowe DPM #2 [facility] [address] [place] [address] Consulting Physician Podiatry 06/16/17 Mora Fritz Behavioral Health Navigator 06/15/18 Ok Jorge MD #2 [facility] [address] [place] [address] Consulting Physician Endocrinology 05/12/22 Orlin Urbina HAIR ROOTING MACHINE OPERATOR, SURGICAL CONSULTANT #2 [place] [address] Nurse Practitioner Advanced Practice Nurse 11/09/22 documented as of this encounter
--- OUTSIDE RECORDS SUMMARY | 2025-06-07 17:55 | XMS_ITS | Encounter Summary ---
Author Organization [facility] Address [address] [place] [address] Phone Care Team Providers Care Supervisor Sanding Name Role Phone Oswaldo Serrano MD Primary Care Provider [phone] Angel Crowe DPM Unavailable [phone] Mora Fritz Unavailable Unavailable Ok Jorge MD Unavailable Orlin Urbina APRN, MECHANICAL ENGINEERING DRAFTSPERSON Unavailable [phone] Reason for Visit * Reason Comments Medication Refill Encounter Details Date Type Department Care Team (Late st Contact Info) Description 01/21/2022 Refill [facility] [place] [facility] #2 [place] [address] Orlin Urbina APRN, MECHANICAL ENGINEERING DRAFTSPERSON #2 [place] [address] Medication Refill Social History Tobacco Use Types [...] Description 07/17/2025 2:45 PM CDT Office Visit [facility] - [place] [address] [place] [address] Oswaldo Serrano MD #[address] [address] 07/22/2025 2:30 PM CDT [facility] Visit [facility] Endocr[facility]ology - [place] [address] [place] [address] Ok Jorge MD #[address] [address] 07/30/2025 2:45 PM CDT Office Visit [facility] #2 [place] [address] Orlin Urbina APRN, MECHANICAL ENGINEERING DRAFTSPERSON #2 [place] [address] documented as of this encounter Visit Diagnoses Diagnosis Nocturnal enuresis OAB (overactive bladder) Hypertonicity of bladder documented in this encounter Additional Health Concerns Assessment Noted Time PHQ-9 Depression Total Score: 2 07/18/20 20 4:26 PM CDT documented as of this encounter Care Teams Supervisor Sanding Relationship Specialty Start Date End Date Oswaldo Serrano MD #[address] [address] PCP - General Family Medicine 05/19/17 Angel Crowe DPM #[address] [address] Consulting Physician Podiatry 06/16/17 Mora Fritz [place] Behavioral Health Navigator 06/15/18 Ok Jorge MD #[address] [address] Consulting Physician Endocrinology 05/12/22 Orlin Urbina APRN, MECHANICAL ENGINEERING DRAFTSPERSON #2 [place] [address] Nurse Practitioner Advanced Practice Nurse 11/09/22 documented as of this encounter
--- OUTSIDE RECORDS SUMMARY | 2025-06-07 17:55 | XMS_ITS | Encounter Summary ---
Author Organization [facility] Address [address] [place] [address] Phone Care Team Providers Care Hand Woven Carpet And Rug Mender Name Role Phone Oswaldo Serrano MD Primary Care Provider [phone] Angel Crowe DPCiara Unavailable [phone] Mora Fritz Unavailable Unavailable Ok Jorge MD Unavailable Orlin Urbina APRN, ENCHILADA MAKER Unavailable [phone] Reason for Visit * Reason Comments Medication Refill Encounter Details Date Type Department Care Team (Late st Contact Info) Description 12/16/2021 Refill [facility] - [place] [address] [place] [address] Oswaldo Serrano MD #[address] [address] Medication Refill Social History Tobacco Use Types [...] COVID-19? No / Unsure 12/10/2021 3:06 PM HEAVY EQUIPMENT SERVICE MANAGER documented as of this encounter Miscellaneous [...] 90 days and meeting all other requirements Y EQUIPMENT SERVICE MANAGER documented in this encounter Plan of Treatment Upcoming Encounters Date Type Department Care Team (Late st Contact Info) Description 07/17/2025 2:45 PM CDT Office Visit [facility] - Family Medicine [facility] #2 [place] [address] Oswaldo Serrano MD #2 [facility] [address] [place] [address] 07/22/2025 2:30 PM CDT Office Visit [facility] Endocrinology - [place] #2 [place] [address] Ok Jorge MD #2 [facility] [address] [place] [address] 07/30/2025 2:45 PM CDT Office Visit [facility] UR[facility]Y #2 [place] [address] Orlin Urbina APRN, ENCHILADA MAKER #2 [facility] [place] [address] documented as of this encounter Visit Diagnoses Not on filedocumented in this encounter Additional Health Concerns Assessment Noted Time PHQ-9 Depression Total Score: 2 07/18/20 20 4:26 PM CDT documented as of this encounter Care Teams Hand Woven Carpet And Rug Mender Relationship Specialty Start Date End Date Oswaldo Serrano MD #2 [facility] [address] [place] [address] PCP - General Family Medicine 05/19/17 Angel Crowe DPM #[address] [address] Consulting Physician Podiatry 06/16/17 Mora Fritz [place] Behavioral Health Navigator 06/15/18 Ok Jorge MD #[address] [address] Consulting Physician Endocrinology 05/12/22 Orlin Urbina APRN, ENCHILADA MAKER #2 [place] [address] Nurse Practitioner Advanced Practice Nurse 11/09/22 documented as of this encounter
--- OUTSIDE RECORDS SUMMARY | 2025-06-07 17:55 | XMS_ITS | Encounter Summary ---
Author Organization [facility] Address [address] [place] [address] Phone Care Team Providers Care Concrete Mixer Operator Name Role Phone Oswaldo Serrano MD Primary Care Provider [phone] Angel Crowe DPM Unavailable [phone] Mora Fritz Unavailable Unavailable Ok Jorge MD Unavailable Orlin Urbina APRN, LAY OUT MACHINE OPERATOR Unavailable [phone] Reason for Visit * Reason Comments Medication Refill Encounter Details Date Type Department Care Team (Late st Contact Info) Description 05/10/2022 Refill [facility] - Endocrinology - [place] #2 [place] [address] Ok Jorge MD #[address] [address] Medication Refill Social History Tobacco [...] Description 07/17/2025 2:45 PM CDT Office Visit [facility] - Family Medicine - [place] #2 [place] [address] Oswaldo Serrano MD #2 [facility] [address] [place] [address] 07/22/2025 2:30 PM CDT Office Visit [facility] - Endocrinology - [place] #2 [place] [address] Ok Jorge MD #2 [facility] [address] [place] [address] 07/30/2025 2:45 PM CDT Office Visit [facility] UROLOGY #2 [place] [address] Orlin Urbina APRN, LAY OUT MACHINE OPERATOR #2 [place] [address] documented as of this encounter Visit Diagnoses Not on filedocumented in this encounter Additional Health Concerns Assessment Noted Time PHQ-9 Depression Total Score: 2 07/18/20 20 4:26 PM CDT documented as of this encounter Care Teams Concrete Mixer Operator Relationship Specialty Start Date End Date Oswaldo Serrano MD #2 [facility] [address] [place] [address] PCP - General Family Medicine 05/19/17 Angel Crowe DPM #2 [facility] [address] [place] [address] Consulting Physician Podiatry 06/16/17 Mora Fritz MA Behavioral Health Navigator 06/15/18 Ok Jorge MD #2 [facility] [address] [place] [address] Consulting Physician Endocrinology 05/12/22 Orlin Urbina APRN, LAY OUT MACHINE OPERATOR #2 [place] [address] Nurse Practitioner Advanced Practice Nurse 11/09/22 documented as of this encounter
--- OUTSIDE RECORDS SUMMARY | 2025-06-07 17:55 | XMS_ITS | Encounter Summary ---
Author Organization [facility] Address [address] [place] [address] Phone Care Team Providers Care Medical Pathology Teacher Name Role Phone Oswaldo Serrano MD Primary Care Provider Angel Crowe DPM Unavailable [phone] Mora Fritz Unavailable Unavailable Ok Jorge MD Unavailable Orlin Urbina APRN, YUDI Unavailable [phone] Reason for Visit * Reason Comments Medication Refill Encounter Details Date Type Department Care Team (Late st Contact Info) Description 10/28/2021 Refill [facility] [address] [place] [address] Edwar Romo MD #[address] [address] [address] Medication Refill Social History Tobacco Use Types [...] COVID-19? 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 - Family Medicine [facility] #2 [place] [address] Oswaldo Serrano MD #[address] [address] 07/22/2025 2:30 PM CDT Office Visit [facility] Medical [facility] - Endocrinology [facility] #2 [place] [address] Ok Jorge MD #2 [facility] [address] [place] [address] 07/30/2025 2:45 PM CDT Office Visit [facility] UROLOGY #2 [place] [address] Orlin Urbina APRN, FLAG SIGNALMAN #2 [place] [address] documented as of this encounter Visit Diagnoses Diagnosis Nocturnal enuresis documented in this encounter Additional Health Concerns Assessment Noted Time PHQ-9 Depression Total Score: 2 07/18/20 20 4:26 PM CDT documented as of this encounter Care Teams Medical Pathology Teacher Relationship Specialty Start Date End Date Oswaldo Serrano MD #2 [facility] [address] [place] [address] PCP - General Family Medicine 05/19/17 Angel Crowe DPM #2 [facility] [address] [place] [address] Consulting Physician Podiatry 06/16/17 Mora Fritz [place] Behavioral Health Navigator 06/15/18 Ok Jorge MD #2 [facility] [address] [place] [address] Consulting Physician Endocrinology 05/12/22 Orlin Urbina, VP TALENT MANAGEMENT, FLAG SIGNALMAN #2 [place] [address] Nurse Practitioner Advanced Practice Nurse 11/09/22 documented as of this encounter
--- OUTSIDE RECORDS SUMMARY | 2025-06-07 17:55 | XMS_ITS | Encounter Summary ---
Author Organization [facility] Address [address] [place] [address] Phone Care Team Providers Care Painting Department Supervisor Name Role Phone Oswaldo Serrano MD Primary Care Provider [phone] Angel Crowe DPM Unavailable [phone] Mora Fritz Unavailable Unavailable Ok Jorge MD Unavailable Orlin Urbina APRN, AUTOMOTIVE HEAVY MECHANIC Unavailable [phone] Reason for Visit * Reason Comments Medication Refill Encounter Details Date Type Department Care Team (Late st Contact Info) Description 01/19/2022 Refill [facility] [place] [facility] #2 [place] [address] Orlin Urbina APRN, AUTOMOTIVE HEAVY MECHANIC #2 [place] [address] Medication Refill Social History Tobacco Use Types [...] Description 07/17/2025 2:45 PM CDT Office Visit [facility] - Family Medicine [facility] #2 [place] [address] Oswaldo Serrano MD #[address] [address] 07/22/2025 2:30 PM CDT Office Visit [facility] Medical [facility] - Endocrinology [facility] #2 [place] [address] Ok Jorge MD #[address] [address] 07/30/2025 2:45 PM CDT Office Visit [facility] UROLOGY #2 [place] [address] Orlin Urbina APRN, AUTOMOTIVE HEAVY MECHANIC #2 [place] [address] documented as of this encounter Visit Diagnoses Diagnosis Nocturnal enuresis OAB (overactive bladder) Hypertonicity of bladder documented in this encounter Additional Health Concerns Assessment Noted Time PHQ-9 Depression Total Score: 2 07/18/20 20 4:26 PM CDT documented as of this encounter Care Teams Painting Department Supervisor Relationship Specialty Start Date End Date Oswaldo Serrano MD #2 [facility] [address] [place] [address] PCP - General Family Medicine 05/19/17 Angel Crowe DPM #2 [facility] [address] [place] [address] Consulting Physician Podiatry 06/16/17 oMra Fritz Behavioral Health Navigator 06/15/18 Ok Jorge MD #2 [facility] [address] [place] [address] Consulting Physician Endocrinology 05/12/22 Orlin Urbina APRN, AUTOMOTIVE HEAVY MECHANIC #2 [place] [address] Nurse Practitioner Advanced Practice Nurse 11/09/22 documented as of this encounter
--- OUTSIDE RECORDS SUMMARY | 2025-06-07 17:55 | XMS_ITS | Encounter Summary ---
Author Organization [facility] Address [address] [place] [address] Phone Care Team Providers Care Automation Tester Name Role Phone Oswaldo Serrano MD Primary Care Provider [phone] Angel Crowe DPM Unavailable [phone] Mora Fritz Unavailable Unavailable Ok Jorge MD Unavailable Orlin Urbina APRN, KITCHEN RUNNER Unavailable [phone] Reason for Visit * Reason Comments Medication Refill Encounter Details Date Type Department Care Team (Late st Contact Info) Description 12/09/2021 Refill [facility] [place] [facility] #2 [place] [address] Orlin Urbina APRN, KITCHEN RUNNER #2 [place] [address] Medication Refill Social History Tobacco Use Types [...] COVID-19? 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 INSTALLER documented as of this encounter Miscellaneous Notes * Telephone Encounter - Orlin Urbina APRN, CNP - 12/11/2021 12:52 PM CONVEYOR INSTALLER Patient needs follow-up for continued refills EYOR INSTALLER * Telephone Encounter - Peggy Parson RN [...] 10/27/21 Office Visit Orlin Urbina APRN, CNP [facility] 10/07/21 Office Visit [facility]aldo [facility] 07/28/21 Telemedicine [facility] Office Visit Connor Yuan APRN, KITCHEN RUNNER [facility] 02/27/21 Office Visit Oswaldo Serrano MD [facility] 02/16/21 Office Visit Oswaldo Serrano MD [facility] 01/14/21 Office Visit Connor Yuan APRN, KITCHEN RUNNER [place] [facility] 12/19/20 Office Visit Oswaldo Serrano [...] Ref Range Status 07/02/2021 60 >=60 Final EYOR INSTALLER documented in this encounter Plan of Treatment Upcoming Encounters Date Type Department Care Team (Late st Contact Info) Description 07/17/2025 2:45 PM CDT [facility] - Family Medicine - [place] #2 [place] [address] Oswaldo Serrano MD #2 [facility] [address] [place] [address] 07/22/2025 2:30 PM CDT Office Visit [facility] - Endocrinology - [place] #2 [place] [address] Ok Jorge MD #2 [facility] [address] [place] [address] 07/30/2025 2:45 PM CDT Office Visit [facility] UROLOGY #2 [place] [address] Orlin Urbina APRN, KITCHEN RUNNER #2 [place] [address] documented as of this encounter Visit Diagnoses Diagnosis Nocturnal enuresis OAB (overactive bladder) Hypertonicity of bladder documented in this encounter Additional Health Concerns Assessment Noted Time PHQ-9 Depression Total Score: 2 07/18/20 20 4:26 PM CDT documented as of this encounter Care Teams Automation Tester Relationship Specialty Start Date End Date Oswaldo Serrano MD #2 [facility] [address] [place] [address] PCP - General Family Medicine 05/19/17 Angel Crowe DPM #2 [facility] [address] [place] [address] Consulting Physician Podiatry 06/16/17 Mora Fritz Behavioral Health Navigator 06/15/18 Ok Jorge MD #2 [facility] [address] [place] [address] Consulting Physician Endocrinology 05/12/22 Orlin Urbina APRN, KITCHEN RUNNER #2 [place] [address] Nurse Practitioner Advanced Practice Nurse 11/09/22 documented as of this encounter
--- OUTSIDE RECORDS SUMMARY | 2025-06-07 17:55 | XMS_ITS | Encounter Summary ---
Author Organization [facility] Address [address] [place] [address] Phone Care Team Providers Care Process Maintenance Technician Name Role Phone Oswaldo Serrano MD Primary Care Provider [phone] Angel Crowe DPM Unavailable [phone] Mora Fritz Unavailable Unavailable Ok Jorge MD Unavailable Orlin Urbina APRN, HOUSEKEEPER CHILD CARE Unavailable [phone] Reason for Visit * Reason Comments Medication Refill Encounter Details Date Type Department Care Team (Late st Contact Info) Description 01/15/2022 Refill [facility] [place] [facility] #2 [place] [address] Orlin Urbina APRN, HOUSEKEEPER CHILD CARE #2 [place] [address] Medication Refill Social History Tobacco Use Types [...] Hearn 10/27/21 Office Visit Orlin Urbina APRN, HOUSEKEEPER CHILD CARE [facility] Urology Dhiraj 10/07/21 Office Visit Oswaldo Serrano MD [facility] 07/28/21 Telemedicine Oswaldo Serrano MD [facility] 05/14/21 Office Visit Connor Yuan APRN, HOUSEKEEPER CHILD CARE [facility] 02/27/21 Office Visit Oswaldo Serrano MD [facility] 02/16/21 Office Visit Oswaldo Serrano MD [facility] Showing recent visits within past 365 days [...] Description 07/17/2025 2:45 PM CDT Office Visit [facility] - Family Medicine [facility] #2 [place] [address] Oswaldo Serrano MD #2 [facility] [address] [place] [address] 07/22/2025 2:30 PM CDT Office Visit [facility] - Endocrinology - [place] #2 [place] [address] Ok Jorge MD #2 [facility] [address] [place] [address] 07/30/2025 2:45 PM CDT Office Visit [facility] UROLOGY #2 [place] [address] Orlin Urbina APRN, HOUSEKEEPER CHILD CARE #2 [place] [address] documented as of this encounter Visit Diagnoses Diagnosis Nocturnal enuresis OAB (overactive bladder) Hypertonicity of bladder documented in this encounter Additional Health Concerns Assessment Noted Time PHQ-9 Depression Total Score: 2 07/18/20 20 4:26 PM CDT documented as of this encounter Care Teams Process Maintenance Technician Relationship Specialty Start Date End Date Oswaldo Serrano MD #2 [facility] [address] [place] [address] PCP - General Family Medicine 05/19/17 Angel Crowe DPM #2 [facility] [address] [place] [address] Consulting Physician Podiatry 06/16/17 Mora Fritz [place] Behavioral Health Navigator 06/15/18 Ok Jorge MD #2 [facility] [address] [place] [address] Consulting Physician Endocrinology 05/12/22 Orlin Urbina, CHIEF LIBRARIAN BRANCH OR DEPARTMENT, HOUSEKEEPER CHILD CARE #2 [place] [address] Nurse Practitioner Advanced Practice Nurse 11/09/22 documented as of this encounter
--- OUTSIDE RECORDS SUMMARY | 2025-06-07 17:55 | XMS_ITS | Encounter Summary ---
Author Organization [facility] Address [address] [place] [address] Phone Care Team Providers Care Safe Deposit Clerk Name Role Phone Oswaldo Serrano MD Primary Care Provider Angel Crowe DPM Unavailable [phone] Mora Fritz Unavailable Unavailable Ok Jorge MD Unavailable Orlin Urbina APRN, YUDI Unavailable [phone] Reason for Visit * Reason Comments Medication Refill Encounter Details Date Type Department Care Team (Late st Contact Info) Description 10/14/2021 Refill [facility] [address] [place] [address] Edwar Romo MD [address], [address] [address] Medication Refill Social History Tobacco Use Types [...] COVID-19? 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 IC PROCESS ENGINEER * Telephone Encounter - Peggy Parson RN [...] [facility] 05/14/21 Office Visit Connor Yuan, GARMENT SUPERVISOR, YUDI [facility] 02/27/21 Office Visit Oswaldo Serrano MD [facility] 02/16/21 Office Visit Oswaldo Serrano MD [facility] 01/14/21 Office Visit Connor Yuan APRN, YUDI [facility] 12/19/20 Office Visit Oswaldo Serrano MD [facility] 12/18/20 Telemedicine Oswaldo Serrano MD [facility] 12/08/20 Telemedicine Oswaldo Serrano MD [facility] 11/07/20 Telemedicine Connor Yuan APRN, RESOURCE PROGRAM TEACHER [facility] Show[facility] recent visits within past 365 days and meeting all other requirements Future Appointments Date Type Provider Dept 01/05/22 Appointment Oswaldo Serrano MD [facility] Showing future appointments within next 90 days and meeting all other requirements IC PROCESS ENGINEER documented in this encounter Plan of Treatment Upcoming Encounters Date Type Department Care Team (Late st Contact Info) Description 07/17/2025 2:45 PM CDT Office Visit [facility] - Family Medicine - [place] #2 [place] [address] Oswaldo Serrano MD #2 [facility] [address] [place] [address] 07/22/2025 2:30 PM CDT Office Visit [facility] - Endocrinology - [place] #2 [place] [address] Ok Jorge MD #2 [facility] [address] [place] [address] 07/30/2025 2:45 PM CDT Office Visit [facility] #2 [place] [id number] Orlin Urbina APRN, RESOURCE PROGRAM TEACHER #2 [place] [address] documented as of this encounter Visit Diagnoses Diagnosis Nocturnal enuresis documented in this encounter Additional Health Concerns Assessment Noted Time PHQ-9 Depression Total Score: 2 07/18/20 20 4:26 PM CDT documented as of this encounter Care Teams Safe Deposit Clerk Relationship Specialty Start Date End Date Oswaldo Serrano MD #2 [facility] [address] [place] [address] PCP - General Family Medicine 05/19/17 Angel Crowe DPM #2 [facility] [address] [place] [address] Consulting Physician Podiatry 06/16/17 Mora Fritz [place] Behavioral Health Navigator 06/15/18 Ok Jorge MD #2 [facility] [address] [place] [address] Consulting Physician Endocrinology 05/12/22 Orlin Urbina APRN, RESOURCE PROGRAM TEACHER #2 [place] [address] Nurse Practitioner Advanced Practice Nurse 11/09/22 documented as of this encounter
--- OUTSIDE RECORDS SUMMARY | 2025-06-07 17:55 | XMS_ITS | Encounter Summary ---
Author Organization [facility] Address [address] [place] [address] Phone Care Team Providers Care Legal Librarian Name Role Phone Oswaldo Serrano MD Primary Care Provider [phone] Angel Crowe DPM Unavailable [phone] Mora Fritz Unavailable Unavailable Ok Jorge MD Unavailable Orlin Urbina APRN, RETAIL SALES SPECIALIST Unavailable [phone] Reason for Visit * Reason Comments Medication Refill Encounter Details Date Type Department Care Team (Late st Contact Info) Description 07/31/2020 [facility]ill [facility] - Family Medicine - [place] #2 [place] [address] Connor Yuan APRN, RETAIL SALES SPECIALIST #[address] [address] Medication Refill Social History Tobacco Use Types [...] CDT VITAMIN D, 25 HYDROXY TOTAL Order: [id number] Status: Final result ?Visible to patient: Yes (Bonuu! Loyalty) Dx: Vitamin D deficiency Ref Range & Units 3mo ago 2yr ago 3yr ago VITAMIN D, 25 HYDROX >=30 ng/mL 27Low 23Low 14Low Resulting Agency [facility] April 08, 2020 ? 7:17 AM Connor Yuan APN, YUDI routed this conversation to [facility] Nurse [place] Connor Yuan APN, YUDI ?? 7:16 AM Note Please call patient POA and let her know that her vitamin D was low. Will send over 3 months worth of prescription therapy and then recheck. Orders entered. Zoomingo message sent to patient to have vitamin D re checked. Has active order. documented in this encounter Plan of Treatment Upcoming Encounters Date Type Department Care Team (Late st Contact Info) Description 07/17/2025 2:45 PM CDT Office Visit [facility] - Family [facility] #2 [place] [address] Oswaldo Serrano MD #[address] [address] 07/22/2025 2:30 PM CDT Office Visit [facility] - Endocrinology - [place] #2 [place] [address] Ok Jorge MD #[address] [address] 07/30/2025 2:45 PM CDT Office Visit [facility] #2 [place] [address] Orlin Urbina APRN, RETAIL SALES SPECIALIST #2 [place] [address] documented as of this encounter Visit Diagnoses Diagnosis Vitamin D deficiency Unspecified vitamin D deficiency documented in this encounter Additional Health Concerns Infection Onset Date Last Indicated Resolved Time COVID - 19 10/09/2020 10/09/2020 10/11/2020 5:17 AM ALTERATION MANAGER COVID - 19 11/12/2020 11/12/2020 11/16/2020 9:49 AM ALTERATION MANAGER COVID - 19 07/28/2021 07/29/2021 08/17/2021 12:1 6 AM ALTERATION MANAGER Assessment Noted Time PHQ-9 Depression Total Score: 2 07/18/20 20 4:26 PM CDT documented as of this encounter Care Teams Legal Librarian Relationship Specialty Start Date End Date Oswaldo Serrano MD #[address] [address] PCP - General Family Medicine 05/19/17 Angel Crowe DPM #[address] [address] Consulting Physician Podiatry 06/16/17 Mora Fritz [place] Behavioral Health Navigator 06/15/18 Ok Jorge MD #[address] [address] Consulting Physician Endocrinology 05/12/22 Orlin Urbina, UNEMPLOYMENT INSPECTOR, RETAIL SALES SPECIALIST #2 [place] [address] Nurse Practitioner Advanced Practice Nurse 11/09/22 documented as of this encounter
--- OUTSIDE RECORDS SUMMARY | 2025-06-07 17:55 | XMS_ITS | Encounter Summary ---
Author Organization [facility] Address [address] [place] [address] Phone Care Team Providers Care Telecommunicator Name Role Phone Oswaldo Serrano MD Primary Care Provider [phone] Angel Crowe DPM Unavailable [phone] Mora Fritz Unavailable Unavailable Ok Jorge MD Unavailable Orlin Urbina APRN, DESTINATION COORDINATOR Unavailable [phone] Reason for Visit * Reason Comments Medication Refill Encounter Details Date Type Department Care Team (Late st Contact Info) Description 08/20/2020 Refill [facility] - Family Medicine - [place] #2 [place] [address] Connor Yuan APRN, DESTINATION COORDINATOR #[address] [address] Medication Refill Social History Tobacco Use Types [...] COVID-19? No / Unsure 08/11/2020 2:55 PM INCOME TAX PREPARER documented as of this encounter Miscellaneous Notes * Telephone Encounter - Connie Gamez RN - 08/20/2020 4:35 PM CST Request for this Med has been requested four times today. ME TAX PREPARER documented in this encounter Plan of Treatment Upcoming Encounters Date Type Department Care Team (Late st Contact Info) Description 07/17/2025 2:45 PM CDT Office Visit [facility] - Family Medicine [facility] #2 [place] [address] Oswaldo Serrano MD #2 [facility] [address] [place] [address] 07/22/2025 2:30 PM CDT Office Visit [facility] - Endocrinology - [place] #2 [place] [address] Ok Jorge MD #2 [facility] [address] [place] [address] 07/30/2025 2:45 PM CDT Office Visit [facility] #2 [place] [address] Orlin Urbina APRN, DESTINATION COORDINATOR #2 [place] [address] documented as of this encounter Visit Diagnoses Diagnosis Vitamin D deficiency Unspecified vitamin D deficiency documented in this encounter Additional Health Concerns Infection Onset Date Last Indicated Resolved Time COVID - 19 10/09/2020 10/09/2020 10/11/2020 5:17 AM INCOME TAX PREPARER COVID - 19 11/12/2020 11/12/2020 11/16/2020 9:49 AM INCOME TAX PREPARER COVID - 19 07/28/2021 07/29/2021 08/17/2021 12:1 6 AM INCOME TAX PREPARER Assessment Noted Time PHQ-9 Depression Total Score: 2 07/18/20 4:26 PM CDT documented as of this encounter Care Teams Telecommunicator Relationship Specialty Start Date End Date Oswaldo Serrano MD #2 [facility] [address] [place] [address] PCP - General Family Medicine 05/19/17 Angel Crowe DPM #2 [facility] [address] [place] [address] Consulting Physician Podiatry 06/16/17 Mora Fritz [place] Behavioral Health Navigator 06/15/18 Ok Jorge MD #2 [facility] [address] [place] [address] Consulting Physician Endocrinology 05/12/22 Orlin Urbina APRN, DESTINATION COORDINATOR #2 [place] [address] Nurse Practitioner Advanced Practice Nurse 11/09/22 documented as of this encounter
--- OUTSIDE RECORDS SUMMARY | 2025-06-07 17:55 | XMS_ITS | Encounter Summary ---
Author Organization [facility] Address [address] [place] [address] Phone Care Team Providers Care Engineering Supervisor Name Role Phone Oswaldo Serrano MD Primary Care Provider Angel Crowe DPM Unavailable [phone] Mora Fritz Unavailable Unavailable Ok Jorge MD Unavailable Orlin Urbina APRN, BYPRODUCT ENGINEER Unavailable [phone] Reason for Visit * Reason Comments Medication Refill Encounter Details Date Type Department Care Team (Late st Contact Info) Description 01/26/2022 Refill [facility] #[address] [place] [address] Oswaldo Serrano MD #[address] [address] Medication Refill Social History Tobacco Use Types [...] [place] 10/27/21 Office Visit Orlin Urbina APRN, BYPRODUCT ENGINEER [facility] [place] 10/07/21 Office Visit Oswaldo Serrano MD [facility] 07/28/21 Telemedicine Oswaldo Serrano MD [facility] 05/14/21 Office Visit Connor Yuan APRN, BYPRODUCT ENGINEER [facility] 02/27/21 Office Visit Oswaldo Serrano MD [facility] 02/16/21 Office Visit Oswaldo Serrano MD [facility] Showing recent visits within past 365 [...] Description 07/17/2025 2:45 PM CDT Office Visit [facility] - Family Medicine - [place] #2 [place] [address] Oswaldo Serrano MD #2 [facility] [address] [place] [address] 07/22/2025 2:30 PM CDT Office Visit [facility] - Endocrinology - [place] #2 [place] [address] Ok Jorge MD #2 [facility] [address] [place] [address] 07/30/2025 2:45 PM CDT Office Visit [facility] #2 [place] [address] Orlin Urbina APRN, BYPRODUCT ENGINEER #2 [place] [address] documented as of this encounter Visit Diagnoses Diagnosis Nocturnal enuresis OAB (overactive bladder) Hypertonicity of bladder documented in this encounter Additional Health Concerns Assessment Noted Time PHQ-9 Depression Total Score: 2 07/18/20 20 4:26 PM CDT documented as of this encounter Care Teams Engineering Supervisor Relationship Specialty Start Date End Date Oswaldo Serrano MD #2 [facility] [address] [place] [address] PCP - General Family Medicine 05/19/17 Angel Crowe DPM #2 [facility] [address] [place] [address] Consulting Physician Podiatry 06/16/17 Mora Fritz Behavioral Health Navigator 06/15/18 Ok Jorge MD #2 [facility] [address] [place] [address] Consulting Physician Endocrinology 05/12/22 Orlin Urbina APRN, BYPRODUCT ENGINEER #2 [place] [address] Nurse Practitioner Advanced Practice Nurse 11/09/22 documented as of this encounter
--- OUTSIDE RECORDS SUMMARY | 2025-06-07 17:55 | XMS_ITS | Encounter Summary ---
Author Organization [facility] Address [address] [place] [address] Phone Care Team Providers Care [employer] Rep Name Role Phone Oswaldo Serrano MD Primary Care Provider [phone] Angel Crowe DPCiara Unavailable [phone] Mora Fritz Unavailable Unavailable Ok Jorge MD Unavailable Orlin Urbina APRN, ADMINISTRATIVE PROGRAM SPECIALIST Unavailable [phone] Reason for Visit * Reason Comments Medication Refill Encounter Details Date Type Department Care Team (Late st Contact Info) Description 01/15/2022 Refill [facility] - Family Medicine - [place] [address] [place] [address] Oswaldo Serrano MD #[address] [address] Medication Refill Social History Tobacco Use Types [...] Description 07/17/2025 2:45 PM CDT Office Visit [facility] - Family Medicine - [place] #2 [place] [address] Oswaldo Serrano MD #[address] [place] [address] 07/22/2025 2:30 PM CDT Office Visit [facility] Endocrinology - [place] #2 [place] [address] Ok Jorge MD #[address] [place] [address] 07/30/2025 2:45 PM CDT Office Visit [facility] #2 [place] [address] Orlin Urbina APRN, ADMINISTRATIVE PROGRAM SPECIALIST #2 [facility] [place] [address] documented as of this encounter Visit Diagnoses Not on filedocumented in this encounter Additional Health Concerns Assessment Noted Time PHQ-9 Depression Total Score: 2 07/18/20 20 4:26 PM CDT documented as of this encounter Care Teams Home [employer]ot Rep Relationship Specialty Start Date End Date Oswaldo Serrano MD #[address] [place] [address] PCP - General Family Medicine 05/19/17 Angel Crowe DPM #[address] [place] [address] Consulting Physician Podiatry 06/16/17 Mora Fritz [place] Behavioral Health Navigator 06/15/18 Ok Jorge MD #[address] [address] Consulting Physician Endocrinology 05/12/22 Orlin Urbina, MEXICAN FOOD MAKER, ADMINISTRATIVE PROGRAM SPECIALIST #2 [place] [address] Nurse Practitioner Advanced Practice Nurse 11/09/22 documented as of this encounter
--- OUTSIDE RECORDS SUMMARY | 2025-06-07 17:55 | XMS_ITS | Encounter Summary ---
Author Organization [facility] Address [address] [place] [address] Phone Care Team Providers Care Cable Maintainer Name Role Phone Oswaldo Serrano MD Primary Care Provider Angel Crowe DPCiara Unavailable [phone] Mora Fritz Unavailable Unavailable Ok Jorge MD Unavailable Orlin Urbina APRN, BRAIN WAVE TECHNICIAN Unavailable [phone] Reason for Visit * Reason Comments Medication Refill Encounter Details Date Type Department Care Team (Late st Contact Info) Description 09/11/2021 Refill [facility] - Family Medicine - [place] [address] [place] [address] Oswaldo Serrano MD #[address] [address] Medication Refill Social History Tobacco Use Types [...] ago Acute bronchitis, unspecified organism [facility] Family [facility] - Connor Hutchinson APRN, YUDI 6 months ago [facility] months [facility] 8 months ago [facility] Hutch[place] APRN, YUDI Upcoming Appointments Future Appointments In 3 weeks Oswaldo Serrano MD [facility] - Family Medicine - [place] In 1 month Ok Jorge MD [facility] - Endocrinology - [place] [facility] TANK TRUCK MECHANIC - Recent and Past Visits Recent Visits [...] with SSRI for at least 6 months INE OPERATOR GENERAL documented in this encounter Plan of Treatment Upcoming Encounters Date Type Department Care Team (Late st Contact Info) Description 07/17/2025 2:45 PM CDT Office Visit [facility] Medical [facility] - Family Medicine - [place] #2 [place] [address] Oswaldo Serrano MD #2 [facility] [address] [place] [address] 07/22/2025 2:30 PM CDT Office Visit [facility] - Endocrinology - [place] #2 [place] [address] Ok Jorge MD #[address] [place] [address] 07/30/2025 2:45 PM CDT Office Visit [facility] #2 [place] [address] Orlin Urbina, LEAD C DEVELOPER, BRAIN WAVE TECHNICIAN #2 [place] [address] documented as of this encounter Visit Diagnoses Not on filedocumented in this encounter Additional Health Concerns Assessment Noted Time PHQ-9 Depression Total Score: 2 07/18/20 20 4:26 PM CDT documented as of this encounter Care Teams Cable Maintainer Relationship Specialty Start Date End Date Oswaldo Serrano MD #[address] [place] [address] PCP - General Family Medicine 05/19/17 Angel Crowe DPM #2 [facility] [address] [place] [address] Consulting Physician Podiatry 06/16/17 Mora Fritz [place] Behavioral Health Navigator 06/15/18 Ok Jorge MD #2 [facility] [address] [place] [address] Consulting Physician Endocrinology 05/12/22 Orlin Urbina APRN, BRAIN WAVE TECHNICIAN #2 [place] [address] Nurse Practitioner Advanced Practice Nurse 11/09/22 documented as of this encounter
--- OUTSIDE RECORDS SUMMARY | 2025-06-07 17:55 | XMS_ITS | Encounter Summary ---
Author Organization [facility] Address [address] [place] [address] Phone Care Team Providers Care Sanitation Worker Cleaning Machinery Name Role Phone Oswaldo Serrano MD Primary Care Provider Angel Crowe DPM Unavailable [phone] Mora Fritz Unavailable Unavailable Ok Jorge MD Unavailable Orlin Urbina APRN, AQUARIUM SPECIALIST Unavailable [phone] Reason for Visit * Reason Comments Medication Refill Encounter Details Date Type Department Care Team (Late st Contact Info) Description 02/03/2022 Refill [facility] #[address] [place] [address] Oswaldo Serrano MD #[address] [address] Medication Refill Social History Tobacco Use Types [...] [place] 10/27/21 Office Visit Orlin Urbina APRN, AQUARIUM SPECIALIST [facility] [place] 10/07/21 Office Visit Oswaldo Serrano MD [facility] 07/28/21 Telemedicine Oswaldo Serrano MD [facility] 05/14/21 Office Visit Connor Yuan APRN, AQUARIUM SPECIALIST [facility] [...] [place] 10/27/21 Office Visit Orlin Urbina APRN, AQUARIUM SPECIALIST [facility] Urology [place] 10/07/21 Office Visit Oswaldo Serrano MD [facility] 07/28/21 Telemedicine Oswaldo Serrano MD [facility] 05/14/21 Office Visit Connor Yuan APRN, AQUARIUM SPECIALIST [facility] 02/27/21 Office Visit Oswaldo Serrano MD [facility] 02/16/21 Office Visit Oswaldo Serrnao MD [facility] Showing recent visits within past 365 days and meeting all other requirements Future Appointments No visits were found meeting these conditions. Showing future appointments within next 90 days and meeting all other requirements documented in this encounter Plan of Treatment Upcoming Encounters Date Type Department Care Team (Late st Contact Info) Description 07/17/2025 2:45 PM CDT Office Visit [facility] - Family Medicine - [place] #2 [place] [address] Oswaldo Serrano MD #[address] [address] 07/22/2025 2:30 PM CDT Office Visit [facility] - Endocrinology - [place] #2 [place] [address] Ok Jorge MD #[address] [address] 07/30/2025 2:45 PM CDT Office Visit [facility] #2 [place] [address] Orlin Urbina APRN, AQUARIUM SPECIALIST #2 [place] [address] documented as of this encounter Visit Diagnoses Not on filedocumented in this encounter Additional Health Concerns Assessment Noted Time PHQ-9 Depression Total Score: 2 07/18/20 20 4:26 PM CDT documented as of this encounter Care Teams Sanitation Worker Cleaning Machinery Relationship Specialty Start Date End Date Oswaldo Serrano MD #[address] [address] PCP - General Family Medicine 05/19/17 Angel Crowe DPM #[address] [address] Consulting Physician Podiatry 06/16/17 Mora Fritz Behavioral Health Navigator 06/15/18 Ok Jorge MD #[address] [address] Consulting Physician Endocrinology 05/12/22 Orlin Urbina, MOVEMENT ASSEMBLY FINAL INSPECTOR, AQUARIUM SPECIALIST #2 [place] [address] Nurse Practitioner Advanced Practice Nurse 11/09/22 documented as of this encounter
--- OUTSIDE RECORDS SUMMARY | 2025-06-07 17:55 | XMS_ITS | Encounter Summary ---
Author Organization [facility] Address [address] [place] [address] Phone Care Team Providers Care Bi Consultant Name Role Phone Oswaldo Serrano MD Primary Care Provider [phone] Angel Crowe DPCiara Unavailable [phone] Mora Fritz Unavailable Unavailable Ok Jorge MD Unavailable Orlin Urbina APRN, AUTOMOBILE DRIVERS Unavailable [phone] Reason for Visit * Reason Comments Medication Refill Encounter Details Date Type Department Care Team (Late st Contact Info) Description 10/14/2021 [facility]ill [facility] - Family Medicine - [place] [address] [place] [address] Oswaldo Serrano MD #[address] [address] Medication Refill Social History Tobacco Use Types [...] COVID-19? No / Unsure 10/07/2021 3:45 PM CADD DRAFTER documented as of this encounter Miscellaneous Notes [...] [place] 05/14/21 Office Visit Connor Yuan APRN, AUTOMOBILE DRIVERS [facility] 02/27/21 Office Visit Oswaldo Serrano MD [facility] 02/16/21 Office Visit Oswaldo Serrano MD [facility] 01/14/21 Office Visit Connor Yuan APRN, AUTOMOBILE DRIVERS [facility] 12/19/20 Office Visit Oswaldo Serrano MD [facility] 12/18/20 Telemedicine Oswaldo Serrano MD [facility] 12/08/20 Telemedicine [facility]aldo Serrano MD [facility] 11/07/20 Telemedicine Connor Yuan APRN, YUDI [facility] Showing recent visits within past 365 days and meeting all other requirements Future Appointments Date Type Provider Dept 01/05/22 Appointment Oswaldo Serrano MD [facility] Showing future appointments within next 90 days and meeting all other requirements DRAFTER documented in this encounter Plan of Treatment Upcoming Encounters Date Type Department Care Team (Late st Contact Info) Description 07/17/2025 2:45 PM CDT Office Visit [facility] Medical [facility] - Family Medicine - [place] [address] [place] [address] Oswaldo Serrano MD #[address] [address] 07/22/2025 2:30 PM CDT Office Visit [facility] - Endocrinology - [place] [address]2 [place] [address] Ok Jorge MD #[address] [address] 07/30/2025 2:45 PM CDT Office Visit [facility] UROLOGY #2 [place] [id number] Orlin Urbina, NATUROPATH, AUTOMOBILE DRIVERS #2 [place] [address] documented as of this encounter Visit Diagnoses Not on filedocumented in this encounter Additional Health Concerns Assessment Noted Time PHQ-9 Depression Total Score: 2 07/18/20 20 4:26 PM CDT documented as of this encounter Care Teams Bi Consultant Relationship Specialty Start Date End Date Oswaldo Serrano MD #2 [facility] [address] [place] [address] PCP - General Family Medicine 05/19/17 Angel Crowe DPM #2 [facility] [address] [place] [address] Consulting Physician Podiatry 06/16/17 Mora Fritz Behavioral Health Navigator 06/15/18 Ok Jorge MD #2 [facility] [address] [place] [address] Consulting Physician Endocrinology 05/12/22 Orlin Urbina, NATUROPATH, AUTOMOBILE DRIVERS #2 [place] [address] Nurse Practitioner Advanced Practice Nurse 11/09/22 documented as of this encounter
--- OUTSIDE RECORDS SUMMARY | 2025-06-07 17:55 | XMS_ITS | Encounter Summary ---
Author Organization [facility] Address [address] [place] [address] Phone Care Team Providers Care Import Export Manager Name Role Phone Oswaldo Serrano MD Primary Care Provider [phone] Angel Crowe DPCiara Unavailable [phone] Mora Fritz Unavailable Unavailable Ok Jorge MD Unavailable Orlin Urbina APRN, STEAM PAN SPONGER Unavailable [phone] Reason for Visit * Reason Comments Medication Refill Encounter Details Date Type Department Care Team (Late st Contact Info) Description 05/19/2022 Refill [facility] - Family Medicine - [place] [address] [place] [address] Oswaldo Serrano MD #[address] [address] Medication Refill Social History Tobacco Use Types [...] [facility] 07/28/21 Telemedicine Oswaldo Serrano MD [facility] Showing recent visits within past 365 days [...] Group - Family Medicine - [place] #[address] [place] [address] Oswaldo Serrano MD #[address] [address] 07/22/2025 2:30 PM CDT Office Visit [facility] - Endocrinology - [place] #2 [place] [address] Ok Jorge MD #[address] [address] 07/30/2025 2:45 PM CDT Office Visit [facility] UROLOGY #2 [place] [address] Orlin Urbina APRN, STEAM PAN SPONGER #2 [place] [address] documented as of this encounter Visit Diagnoses Not on filedocumented in this encounter Additional Health Concerns Assessment Noted Time PHQ-9 Depression Total Score: 2 07/18/20 20 4:26 PM CDT documented as of this encounter Care Teams Import Export Manager Relationship Specialty Start Date End Date Oswaldo Serrano MD #[address] [address] PCP - General Family Medicine 05/19/17 Angel Crowe DPM #[address] [address] Consulting Physician Podiatry 06/16/17 Mora Fritz [place] Behavioral Health Navigator 06/15/18 Ok Jorge MD #[address] [address] Consulting Physician Endocrinology 05/12/22 Orlin Urbina APRN, STEAM PAN SPONGER #2 [place] [address] Nurse Practitioner Advanced Practice Nurse 11/09/22 documented as of this encounter
--- OUTSIDE RECORDS SUMMARY | 2025-06-07 17:55 | XMS_ITS | Encounter Summary ---
Author Organization [facility] Address [address] [place] [address] Phone Care Team Providers Care Hostage Negotiator Name Role Phone Oswaldo Serrano MD Primary Care Provider [phone] Angel Crowe DPCiara Unavailable [phone] Mora Fritz Unavailable Unavailable Ok Jorge MD Unavailable Orlin Urbina APRN, LUMBER DRIVER Unavailable [phone] Reason for Visit * Reason Comments Medication Refill Encounter Details Date Type Department Care Team (Late st Contact Info) Description 02/17/2022 Refill [facility] - Family Medicine - [place] [address] [place] [address] Oswaldo Serrano MD #[address] [address] Medication Refill Social History Tobacco Use Types [...] Office Visit [facility] Medical [facility] - Family Medicine - [place] #2 [facility] [place] [address] Oswaldo Serrano MD #2 [facility] [address] [place] [address] 07/22/2025 2:30 PM CDT Office Visit [facility] - Endocrinology - [place] #2 [place] [address] Ok Jorge MD #2 [facility] [address] [place] [address] 07/30/2025 2:45 PM CDT Office Visit [facility]YSICIAN [facility] UROLOGY #2 [place] [address] Orlin Urbina, BUTTON PUSHER, LUMBER DRIVER #2 [place] [address] documented as of this encounter Visit Diagnoses Not on filedocumented in this encounter Additional Health Concerns Assessment Noted Time PHQ-9 Depression Total Score: 2 07/18/20 20 4:26 PM CDT documented as of this encounter Care Teams Hostage Negotiator Relationship Specialty Start Date End Date Oswaldo Serrano MD #2 [facility] [address] [place] [address] PCP - General Family Medicine 05/19/17 Angel Crowe DPM #[address] [place] [address] Consulting Physician Podiatry 06/16/17 Mora Fritz [place] Behavioral Health Navigator 06/15/18 Ok Jorge MD #[address] [address] Consulting Physician Endocrinology 05/12/22 Orlin Urbina, BUTTON PUSHER, LUMBER DRIVER #2 [place] [address] Nurse Practitioner Advanced Practice Nurse 11/09/22 documented as of this encounter
--- OUTSIDE RECORDS SUMMARY | 2025-06-07 17:55 | XMS_ITS | Encounter Summary ---
Author Organization [facility] Address [address] [place] [address] Phone Care Team Providers Care Hogshead Mat Assembler Name Role Phone Oswaldo Serrano MD Primary Care Provider [phone] Angel Crowe DPCiara Unavailable [phone] Mora Fritz Unavailable Unavailable Ok Jorge MD Unavailable Orlin Urbina APRN, EXHIBITS CURATOR Unavailable [phone] Reason for Visit * Reason Comments Medication Refill Encounter Details Date Type Department Care Team (Late st Contact Info) Description 10/29/2020 Refill [facility] - Family Medicine - [place] [address] [place] [address] Oswaldo Serrano MD #[address] [address] Medication Refill Social History Tobacco Use Types [...] COVID-19? No / Unsure 10/29/2020 2:20 PM SOCIAL WORK COORDINATOR documented as of this encounter Miscellaneous Notes [...] Outpatient Visits 2 weeks ago Flu-like symptoms [facility] - Oswaldo Moreno MD 1 month ago Chronic joint pain [facility] - Oswaldo Moreno MD 3 months ago Diabetic polyneuropathy associated with type 2 diabetes mellitus (HCC) [facility] - Connor Hutchinson APN, YUDI 3 months ago Acute diarrhea [facility] - Connor Hutchinson APN, YUDI 4 months ago Tick bite, initial encounter [facility] - Oswaldo Moreno MD Upcoming Appointments Future Appointments Today Carson Michel MD [facility] UROLOGY, [facility] In 1 week Ok Jorge MD [facility] Medical [facility] - Endocrinology - [place], [facility] In 1 month Oswaldo Serrano MD [facility] Medical [facility] - Family Medicine [facility], [facility] DRUPAL DEVELOPER - Recent and Past Visits Recent Visits Date Type Provider Dept 10/09/20 Office Visit Oswaldo Serrano MD [facility] 09/16/20 Telemedicine Oswaldo Serrano MD [facility] 07/18/20 Office Visit Connor Yuan APN, EXHIBITS CURATOR [facility] 07/11/20 Telemedicine Connor Yuna APN, EXHIBITS CURATOR [facility] 06/09/20 Office Visit Oswaldo Serrano MD [facility] 05/29/20 Telemedicine Oswaldo Serrano MD [facility] 04/07/20 Office Visit Connor Yuan APN, EXHIBITS CURATOR [facility] 03/18/20 Telemedicine Oswaldo Serrano MD [facility] 12/14/19 Office Visit Merry Elliott, [facility] 08/28/19 Office Visit Oswaldo Serrano MD [facility] Showing recent visits within past 460 days with a meds authorizing provider and meeting all other requirements Future Appointments Date Type Provider Dept 12/08/20 Appointment Oswaldo Serrano MD [facility] Showing future appointments within next 90 days with a meds authorizing provider and meeting all other requirements AL WORK COORDINATOR documented in this encounter Plan of Treatment Upcoming Encounters Date Type Department Care Team (Late st Contact Info) Description 07/17/2025 2:45 PM CDT Office Visit [facility] Medical Group - Family Medicine - [place] #2 [place] [address] Oswaldo Serrano MD [address] [address] 07/22/2025 2:30 PM CDT Office Visit [facility] - Endocrinology - [place] #[address] [place] [address] Ok Jorge MD #2 [facility] [address] [place] [address] 07/30/2025 2:45 PM CDT Office Visit [facility] UROLOGY #2 [place] [address] Orlin Urbina APRN, EXHIBITS CURATOR #2 [place] [address] documented as of this encounter Visit Diagnoses Not on filedocumented in this encounter Additional Health Concerns Infection Onset Date Last Indicated Resolved Time COVID - 19 11/12/2020 11/12/2020 11/16/2020 9:49 AM SOCIAL WORK COORDINATOR COVID - 19 07/28/2021 07/29/2021 08/17/2021 12:1 6 AM SOCIAL WORK COORDINATOR Assessment Noted Time PHQ-9 Depression Total Score: 2 07/18/20 20 4:26 PM CDT documented as of this encounter Care Teams Hogshead Mat Assembler Relationship Specialty Start Date End Date Oswaldo Serrano MD #2 [facility] [address] [place] [address] PCP - General Family Medicine 05/19/17 Angel Crowe DPM #2 [facility] [address] [place] [address] Consulting Physician Podiatry 06/16/17 Mora Fritz Behavioral Health Navigator 06/15/18 Ok Jorge MD #[address] [address] Consulting Physician Endocrinology 05/12/22 Orlin Urbina, FORMING TUBE SELECTOR, EXHIBITS CURATOR #2 [place] [address] Nurse Practitioner Advanced Practice Nurse 11/09/22 documented as of this encounter
--- OUTSIDE RECORDS SUMMARY | 2025-06-07 17:56 | XMS_ITS | Encounter Summary ---
Author Organization [facility] Address [address] [place] [address] Care Team Providers Care Rug Receiving Clerk Name Role Phone Oswaldo Serrano MD Primary Care Provider [phone] Pastora Flores MD Unavailable Sandro Hong MD Unavailable Naa MillerW Unavailable Juanis Lo MD Unavailable Encounter Details Date Type Department Care Team (Late st Contact Info) Description 05/30/2024 Orders Only [facility] Health Information Management [address] [place] [address] Scanning, Provider Social History Tobacco Use Types Packs/Day Years Used Date Smoking Tobacco: Never Smokeless Tobacco: Never [facility] Utilities Answer Date Recorded In the past 12 months has YR Free, gas, oil, or water Rebit threatened to shut off services in your home? No 06/01/2024 Social Connection and Isolation Panel Answer Date Recorded In a typical week, how many times do you talk on the phone with family, friends, or neighbors? More than three times a week 06/01/2024 How often do you get togethe r with friends or relatives? More than three times a week 06/01/2024 How often do you attend chur or latter-day services? Never 06/01/2024 Do you belong to [...] any time in the past 12 m [facility], were you homeless or living in a longterm (including now)? No 06/01/2024 Personal Safety Answer Date Recorded Getting School Help Needed Not on file 12/24 Comments Unknown Sex and Gender Information Value Date Recorded Sex Assigned at Not on file Legal Sex Female 3:51 AM FINISHING OPERATOR Gender Identity Not on file Sexual Orientation Not on file documented as of this encounter Functional Status * AUDIT-C Score Answer Date of Assessment Author 0 06/01/2024 1:50 PM CDT Jeannine Parnell RN * Question Answer Date of Assessment Author Q1: How often do you have a drink containing alcohol? Never 06/01/2024 1:50 PM CDT Carmencita Parnell RN Q2: How many drinks containing alcohol do you have on a typical day when you are drinking? Patient does not drink 06/01/2024 1:50 PM CDT Carmencita Parnell RN Q3: How often do you have six or more drinks on one occasion? Never 06/01/2024 1:50 PM CDT Carmencita Parnell RN documented as of this encounter Plan of Treatment Not on file documented as of this encounter Procedures Procedure Name Priority Date/Time Associated Diagnosis Comments CARDIOLOGY DOCUMENT SCAN 05/30/2024 9:28 PM CDT documented in this encounter Results * Cardiology Document Scan (05/30/2024 9:28 PM CDT) Anatomical Region Laterality Modality Other us Provider Scanning CV CARDIAC SERVICES PROCEDURES Final Result documented in this encounter Visit Diagnoses Not on filedocumented in this encounter Additional Health Concerns Infection Onset Date Last Indicated Resolved Time Ring Surveillance Comment:[id number] NDM-1 07/20/2024 07/20/2024 08/03/2024 3:05 AM C DT COVID: Suspected 10/12/2024 10/12/2024 10/12/2024 5:12 PM FINISHING OPERATOR Rhino/Enterovirus 10/12/2024 10/12/2024 10/24/2024 1:56 PM FINISHING OPERATOR documented as of this encounter Care Teams Rug Receiving Clerk Relationship Specialty Start Date End Date Oswaldo Serrano MD [address] [address] PCP - General Family Medicine 04/14/18 [place] [address] [address] Consulting Physician Cardiology 06/08/24 Sandro Hong MD [address] [place] [address] Referring Physician Cardiology 06/21/24 Naa Miller, [facility] [address] [facility] Mailstop [phone] [place] [address] [facility] Outpatient Water Quality Control Engineer 08/03/24 08/30/24 Juanis Lo MD [address] [facility] [address] [place] [address] Referring Physician Cardiology 03/29/25 documented as of this encounter
--- OUTSIDE RECORDS SUMMARY | 2025-06-07 17:56 | XMS_ITS | Encounter Summary ---
Author Organization [facility] Address [address] [place] [address] Phone Care Team Providers Care Granulator Operator Name Role Phone Oswaldo Serrano MD Primary Care Provider [phone] Angel Crowe DPCiara Unavailable [phone] Mora Fritz Unavailable Unavailable Ok Jorge MD Unavailable Orlin Urbina APRN, KEG VARNISHER Unavailable [phone] Reason for Visit * Reason Comments Medication Refill Encounter Details Date Type Department Care Team (Late st Contact Info) Description 06/03/2022 Refill [facility] - Family Medicine - [place] [address] [place] [address] Oswaldo Serrano MD #[address] [address] Medication Refill Social History Tobacco Use Types [...] Description 07/17/2025 2:45 PM CDT Office Visit [facility] - Family Medicine [facility] #2 [facility] [place] [address] Oswaldo Serrano MD #2 [facility] [address] [place] [address] 07/22/2025 2:30 PM CDT Office Visit [facility] - Endocrinology - [place] #2 [place] [address] Ok Jorge MD #[address] [place] [address] 07/30/2025 2:45 PM CDT Office Visit [facility] [place] [facility] UROLOGY #2 [place] [address] Orlin Urbina, KINDERGARTNER, KEG VARNISHER #2 [place] [address] documented as of this encounter Visit Diagnoses Not on filedocumented in this encounter Additional Health Concerns Assessment Noted Time PHQ-9 Depression Total Score: 2 07/18/20 20 4:26 PM CDT documented as of this encounter Care Teams Granulator Operator Relationship Specialty Start Date End Date Oswaldo Serrano MD #[address] [address] PCP - General Family Medicine 05/19/17 Angel Crowe DPM #[address] [address] Consulting Physician Podiatry 06/16/17 Mora Fritz [place] Behavioral Health Navigator 06/15/18 Ok Jorge MD #[address] [address] [address] Consulting Physician Endocrinology 05/12/22 Orlin Urbina APRN, YUDI #[address] [place] [address] Nurse Practitioner Advanced Practice Nurse 11/09/22 documented as of this encounter
--- OUTSIDE RECORDS SUMMARY | 2025-06-07 17:56 | XMS_ITS | Clinical Summary ---
Author Organization [facility] Address [address] [place] [address] Care Team Providers Care Fisher Reef Net Name Role Phone Fredis Klein APRN-SPARE HAND Primary Care Provider Source Comments [facility],non-owned Affiliates and Associated Physician Practices is amultiple site organization consisting of ambulatory clinics and hospital sitesin [place], [place], [place] and [place]. This disclosure is being madepursuant to the Care Everywhere program and may not contain all information available regarding this patient. Last updated 18.[facility] Allergies Active Allergy Reactions Criticality Noted Date Comments Sulfa Drugs Urticaria Medium 07/15/2016 Medications * Be aware that medications may not be up to date on this document. Alwaysverify current medications with the patient. nortriptyline (Pamelor) 10 MG capsule Take 1 (one) capsule by mouth once daily Active acetaminophen (Tylenol) 500 MG tablet Take 1 (one) tablet by mouth every 6 hours as needed 03/15/20 25 Active albuterol HFA (Proventil; Ventolin; Proair) 108 (90 Base) MCG/ACT inhaler Inhale 2 (two) puffs by mouth every 6 hours as needed for Shortness of Breath 08/05/20 24 Active ascorbic acid (VITAMIN C) 500 MG tablet Take 1 (one) tablet by mouth once daily 05/02/20 25 Active busPIRone (Buspar) 10 MG tablet Take 1 (one) tablet by mouth 2 times daily 05/03/20 25 Active cefadroxil (Duricef) 500 MG capsule Take 2 (two) capsules by mouth 2 times daily 10/29/19 25 Active Cholecalciferol 125 MCG (5000 UT) Take 1 (one) tablet by mouth once daily Active docusate sodium (Colace) 100 MG capsule Take 1 (one) capsule by mouth 2 times daily Active escitalopram (Lexapro) 10 MG tablet Take 1 (one) tablet by mouth once daily 12/12/19 24 Active ferrous sulfate EC 325 (65 Fe) MG tablet Take 1 (one) tablet by mouth once daily Active fluticasone propionate (Flonase) 50 MCG/ACT nasal spray Mobile 2 (two) sprays into each nostril 2 times daily Active hydrocortisone (Hytone) 1 % cream Apply to affected area as needed (itching) 03/18/20 25 Active hydrOXYzine HCl (Atarax) 25 MG tablet Take 1 (one) tablet by mouth every 4 hours as needed for Itching Active insulin aspart (NovoLOG) FlexPen Inject 15 (fifteen) Units subcutaneously 3 times daily,before breakfast/lunch/b edtime 15- 18 units before each meal 08/09/20 24 Active levothyroxine (Synthroid) 75 MCG tablet Take 1 (one) tablet by mouth every morning 09/23/20 24 Active lidocaine (Lidoderm) 4 % patch Apply 1 (one) patch to skin once daily as needed (pain) Active Magnesium Oxide -Mg Supplement 400 (240 Mg) MG Take 1 (one) tablet by mouth once daily 06/22/20 24 Active omeprazole (PriLOSEC) 20 MG capsule Take 1 (one) capsule by mouth once daily Active polyethylene glycol 3350 (Miralax) 17 g packet Take 17 (seventeen) g by mouth once daily as needed 03/19/20 25 Active spironolactone (Aldactone) 25 MG tablet Take 0.5 (one-half) tablet by mouth once daily 10/09/20 24 Active Gemtesa 75 MG tablet Take 1 (one) tablet by mouth once daily 08/09/20 24 Active insulin lispro (HumaLOG) 100 UNIT/ML vial Inject 18 (eighteen) Units subcutaneously 3 times daily before meals Family report 18 units Qam 18 units Qpm 10 units QHS Active cyanocobalamin (Vitamin B-12) 500 MCG tablet Take 1 (one) tablet by mouth once daily Active empagliflozin (Jardiance) 10 MG tablet Take 1 (one) tablet by mouth once daily 06/05/20 25 Active sacubitril-valsa rtan (Entresto) 24-26 MG tablet Take 0.5 (one-half) tablet by mouth 2 times daily 06/05/20 25 Active metoprolol succinate XL 24hr (Toprol XL) 25 MG tablet Take 1 (one) tablet by mouth once daily 06/05/20 25 Active cyanocobalamin (Cyanocobalamin) 500 MCG tablet Take 1 (one) tablet by mouth once daily 06/05/20 25 Active apixaban (Eliquis) 5 MG tablet Take 1 (one) tablet by mouth 2 times daily 06/05/20 25 Active Insulin NPH Isophane & Regular (HUMULIN 70/30 SC) 025 Discontin ued(List Clean-Up) METFORMIN & DIET MANAGE PROD PO 025 Discontin ued(List Clean-Up) RANITIDINE & DIET MANAGE PROD PO 025 Discontin ued(List Clean-Up) LISINOPRIL & DIET MANAGE PROD PO 025 Discontin ued(List Clean-Up) TRAMADOL & DIETARY MANAGE PROD PO 025 Discontin ued(List Clean-Up) Citalopram Hydrobromide (CELEXA PO) 025 Discontin ued(List Clean-Up) Carvedilol (COREG PO) 025 Discontin ued(List Clean-Up) OXYBUTYNIN CHLORIDE PO 025 Discontin ued(List Clean-Up) nitrofurantoin monohyd macro crystals (MACROBID) 100 MG capsule Take 1 Cap by mouth 2 times daily with morning and evening meal 14 Cap 0 07/15/20 16 025 Discontin ued(List Clean-Up) ACETAMINOPHEN-DM PO Take 30 mL by mouth every 4 hours as needed 11/02/19 25 025 Discontin ued(List Clean-Up) Ferrous Sulfate (IRON PO) Take 1 tablet by mouth once daily 025 Discontin ued(List Clean-Up) furosemide (Lasix) 40 MG tablet Take 1 (one) tablet by mouth 2 times daily with morning and evening meal 03/19/20 025 Discontin ued(Clini kilo Decision) metoprolol succinate XL 24hr (Toprol XL) 100 MG tablet Take 1 (one) tablet by mouth once daily 08/03/20 24 025 Discontin ued(List Clean-Up) Xarelto 20 MG tablet Take 1 (one) tablet by mouth once daily 025 Discontin ued(Clini kilo Decision) Active Problems Problem Noted Date Diagnosed Date Hyperkalemia 05/15/2025 Assessment & Plan (06/05/2025 3:19 PM CDT): Hyperkalemia, improving Continue to monitor Assessment & Plan (06/04/2025 8:08 AM CDT): Hyponatremia, resolved Hyperkalemia, improving Continue to monitor Assessment & Plan (06/03/2025 2:30 PM CDT): Hyponatremia, resolved Hyperkalemia, improving Continue to monitor Assessment & Plan (06/02/2025 7:46 AM CDT): - Pt hyperkalemic on arrival, shifted with insulin + dextrose and started on lokelma - Noted to be HypoNa, though baseline may be close to 130-132 - Likely hypervolemic hyponatremia iso cardiogenic shock and ADHF PLAN: - Replete lytes as needed Assessment & Plan (06/01/2025 8:46 AM CDT): - Pt hyperkalemic on arrival, shifted with insulin + dextrose and started on lokelma - Noted to be HypoNa, though baseline may be close to 130-132 - Likely hypervolemic hyponatremia iso cardiogenic shock and ADHF PLAN: - Replete lytes as needed Assessment & Plan (05/31/2025 7:32 AM CDT): - Pt hyperkalemic on arrival, shifted with insulin + dextrose and started on lokelma - Noted to be HypoNa, though baseline may be close to 130-132 - Likely hypervolemic hyponatremia iso cardiogenic shock and ADHF PLAN: - Replete lytes as needed Assessment & Plan (05/30/2025 8:51 AM CDT): - Pt hyperkalemic on arrival, shifted with insulin + dextrose and started on lokelma - Noted to be HypoNa, though baseline may be close to 130-132 - Likely hypervolemic hyponatremia iso cardiogenic shock and ADHF PLAN: - Replete lytes as needed Assessment & Plan (05/29/2025 3:11 PM CDT): - Pt hyperkalemic on arrival, shifted with insulin + dextrose and started on lokelma - Noted to be HypoNa, though baseline may be close to 130-132 - Likely hypervolemic hyponatremia iso cardiogenic shock and ADHF PLAN: - Replete lytes as needed Assessment & Plan (05/16/2025 1:20 PM CDT): - suspect is related to MARK, was shifted and given insulin + dextrose and patiromer in the ED - diuresing as above - lokelma WC - ctm - telemtry Assessment & Plan (05/15/2025 10:56 PM CDT): - suspect is related to MARK, was shifted and given insulin + dextrose and patiromer in the ED - diuresing as above - recheck 4 hours post shifting, 2300 on 05/15 - lokelma tid with meals Hyperbilirubinemia 05/15/2025 Assessment & Plan (06/05/2025 7:51 AM CDT): Liver ultrasound; 8/8 with cirrhotic morphology and congestive hepatopathy Cholecystectomy done decades ago Will need GI follow up OP Assessment & Plan (06/04/2025 8:08 AM CDT): Liver ultrasound; 8/8 with cirrhotic morphology and congestive hepatopathy Cholecystectomy done decades ago Will need GI follow up OP Assessment & Plan (06/03/2025 2:30 PM CDT): Liver ultrasound; 8/8 with cirrhotic morphology and congestive hepatopathy Cholecystectomy done decades ago Will need GI follow up OP Assessment & Plan (06/02/2025 7:46 AM CDT): Liver ultrasound; 8/8 with cirrhotic morphology and congestive hepatopathy Cholecystectomy done decades ago Will need GI follow up OP Dispo: needs SNF placement. Spoke to her sisters (Dilia and Peg) yesterday at length. They had some very understandable concerns about their sister going to a SNF but they are now agreeable. They'd like to review some facilities near their home this weekend. Discussed patient medically ready for discharge and I anticipated discharge early next week to which they expressed understanding. Assessment & Plan (06/01/2025 8:46 AM CDT): Liver ultrasound; 8/8 with cirrhotic morphology and congestive hepatopathy Cholecystectomy done decades ago Will need GI follow up OP Dispo: needs SNF placement Assessment & Plan (05/31/2025 2:41 PM CDT): Liver ultrasound; 8/8 with cirrhotic morphology and congestive hepatopathy Cholecystectomy done decades ago Will need GI follow up OP Assessment & Plan (05/30/2025 4:17 PM CDT): TB elevated but decreasing AST only mildly elevated Liver ultrasound; 8/8 with cirrhotic morphology and congestive hepatopathy Cholecystectomy done decades ago Will need GI follow up OP Assessment & Plan (05/16/2025 7:26 AM CDT): - likely related to congestive hepatopathy from decomp heart failure. Fractionated in ED, predominately direct - daily CMP to monitor Assessment & Plan (05/15/2025 10:56 PM CDT): - likely related to congestive hepatopathy from decomp heart failure. Fractionated in ED, predominately direct - daily CMP to monitor Hyponatremia 05/15/2025 Assessment & Plan (06/05/2025 3:19 PM CDT): Hyperkalemia, improving Continue to monitor Assessment & Plan (06/04/2025 8:08 AM CDT): Hyponatremia, resolved Hyperkalemia, improving Continue to monitor Assessment & Plan (06/03/2025 2:30 PM CDT): Hyponatremia, resolved Hyperkalemia, improving Continue to monitor Assessment & Plan (06/02/2025 7:46 AM CDT): - Pt hyperkalemic on arrival, shifted with insulin + dextrose and started on lokelma - Noted to be HypoNa, though baseline may be close to 130-132 - Likely hypervolemic hyponatremia iso cardiogenic shock and ADHF PLAN: - Replete lytes as needed Assessment & Plan (06/01/2025 8:46 AM CDT): - Pt hyperkalemic on arrival, shifted with insulin + dextrose and started on lokelma - Noted to be HypoNa, though baseline may be close to 130-132 - Likely hypervolemic hyponatremia iso cardiogenic shock and ADHF PLAN: - Replete lytes as needed Assessment & Plan (05/31/2025 7:32 AM CDT): - Pt hyperkalemic on arrival, shifted with insulin + dextrose and started on lokelma - Noted to be HypoNa, though baseline may be close to 130-132 - Likely hypervolemic hyponatremia iso cardiogenic shock and ADHF PLAN: - Replete lytes as needed Assessment & Plan (05/30/2025 8:51 AM CDT): - Pt hyperkalemic on arrival, shifted with insulin + dextrose and started on lokelma - Noted to be HypoNa, though baseline may be close to 130-132 - Likely hypervolemic hyponatremia iso cardiogenic shock and ADHF PLAN: - Replete lytes as needed Assessment & Plan (05/29/2025 3:11 PM CDT): - Pt hyperkalemic on arrival, shifted with insulin + dextrose and started on lokelma - Noted to be HypoNa, though baseline may be close to 130-132 - Likely hypervolemic hyponatremia iso cardiogenic shock and ADHF PLAN: - Replete lytes as needed Assessment & Plan (05/16/2025 1:20 PM CDT): - most likely hypervolemic hyponatremia - urine studies (urine NA and urine osm) - monitor for worsening of mentation - q6 hour lab monitiring Patient likely has hypervolemic hyponatremia. Earlier in AM, Na declined to 121. Mentation appeared to worse. Consideration of hypertonic saline. [facility] contacted and ICU. ICU accepted patient however it was noted that patient had not received AM dose of lasix. Cancelled ICU transfer, will aggressively diurese and more frequent labs to ensure Na continues to improve. Family, underwriting assistant, nurse, and rapid aware of current treatment plans. Assessment & Plan (05/15/2025 11:00 PM CDT): - most likely hypervolemic hyponatremia - rechecking at 2300, if uprending then q12 monitoring - urine studies (urine NA and urine osm) Transaminitis 05/15/2025 Assessment & Plan (06/05/2025 7:51 AM CDT): Liver ultrasound; 8/8 with cirrhotic morphology and congestive hepatopathy Cholecystectomy done decades ago Will need GI follow up OP Assessment & Plan (06/04/2025 8:08 AM CDT): Liver ultrasound; 8/8 with cirrhotic morphology and congestive hepatopathy Cholecystectomy done decades ago Will need GI follow up OP Assessment & Plan (06/03/2025 2:30 PM CDT): Liver ultrasound; 8/8 with cirrhotic morphology and congestive hepatopathy Cholecystectomy done decades ago Will need GI follow up OP Assessment & Plan (06/02/2025 7:46 AM CDT): Liver ultrasound; 8/8 with cirrhotic morphology and congestive hepatopathy Cholecystectomy done decades ago Will need GI follow up OP Dispo: needs SNF placement. Spoke to her sisters (Dilia and Peg) yesterday at length. They had some very understandable concerns about their sister going to a SNF but they are now agreeable. They'd like to review some facilities near their home this weekend. Discussed patient medically ready for discharge and I anticipated discharge early next week to which they expressed understanding. Assessment & Plan (06/01/2025 8:46 AM CDT): Liver ultrasound; 8/8 with cirrhotic morphology and congestive hepatopathy Cholecystectomy done decades ago Will need GI follow up OP Dispo: needs SNF placement Assessment & Plan (05/31/2025 2:41 PM CDT): Liver ultrasound; 8/8 with cirrhotic morphology and congestive hepatopathy Cholecystectomy done decades ago Will need GI follow up OP Assessment & Plan (05/30/2025 4:17 PM CDT): TB elevated but decreasing AST only mildly elevated Liver ultrasound; 8/8 with cirrhotic morphology and congestive hepatopathy Cholecystectomy done decades ago Will need GI follow up OP Assessment & Plan (05/16/2025 7:26 AM CDT): - 2/2 congestive hepathopathy Assessment & Plan (05/15/2025 10:56 PM CDT): - 2/2 congestive hepathopathy Elevated alkaline phosphatase level 05/15/2025 Assessment & Plan (05/16/2025 7:26 AM CDT): - 2/2 congestive hepatopathy Assessment & Plan (05/15/2025 10:56 PM CDT): - 2/2 congestive hepatopathy Acute on chronic congestive heart failure, unspecified heart failure type 05/15/2025 Assessment & Plan (06/05/2025 3:19 PM CDT): - TTE with EF of 25% on [...] Cont on cefadroxil 500mg BID on discharge Assessment & Plan (06/04/2025 8:08 AM CDT): - TTE with EF of 25% on 05/27/25 Patient's blood pressure is staying soft Had recent cardiogenic/mixed shock Not volume overloaded, discontinued Bumex - Empagliflozin 10mg Continue metop succ and entresto -regarding severe TR: not to have inpt intervention but will need outpt f/u. Pt was supposed to follow with [facility], advise to keep that appointment but will refer to [facility]ology in case Continue home cefadroxil; (cont on cefadroxil 500mg BID on discharge) Assessment & Plan (06/03/2025 2:30 PM CDT): - TTE with EF of 25% on 05/27/25 Patient's blood pressure is staying soft Had recent cardiogenic/mixed shock Not volume overloaded, discontinued Bumex - Empagliflozin 10mg Continue metop succ and entresto -regarding severe TR: not to have inpt intervention but will need outpt f/u. Pt was supposed to follow with [facility], advise to keep that appointment but will refer to [facility] in case Continue home cefadroxil; (cont on cefadroxil 500mg BID on discharge) Assessment & Plan (06/02/2025 7:46 AM CDT): - TTE with EF of 25% on 05/27/25 Patient's blood pressure is staying soft Had recent cardiogenic/mixed shock Not volume overloaded, discontinued Bumex - Empagliflozin 10mg Continue metop succ and entresto -regarding severe TR: not to have inpt intervention but will need outpt f/u. Pt was supposed to follow with [facility], advise to keep that appointment but will refer to [facility] in case - Resumed home cefadroxil; cont on cefadroxil 500mg BID on discharge Assessment & Plan (06/01/2025 8:46 AM CDT): - TTE with EF of 25% on 05/27/25 Patient's blood pressure is staying soft Had recent cardiogenic/mixed shock Not volume overloaded, discontinued Bumex - Empagliflozin 10mg Continue metop succ and entresto -regarding severe TR: not to have inpt intervention but will need outpt f/u. Pt was supposed to follow with [facility], advise to keep that appointment but will refer to [facility] in case - Resumed home cefadroxil; cont on cefadroxil 500mg BID on discharge Assessment & Plan (05/31/2025 2:41 PM CDT): - TTE with EF of 25% on 05/27/25 Patient's blood pressure is staying soft Had recent cardiogenic/mixed shock Not volume overloaded, discontinued Bumex - Empagliflozin 10mg Continue metop succ and entresto -regarding severe TR: not to have inpt intervention but will need outpt f/u. Pt was supposed to follow with [facility], advise to keep that appointment but will refer to [facility] in case - Resumed home cefadroxil; cont on cefadroxil 500mg BID on discharge Assessment & Plan (05/30/2025 8:51 AM CDT): - TTE with EF of 25% on [...] f/u. 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 - cardiac diet with fluid restriction - bid electrolyte monitoring - telemetry monitoring Obesity with serious comorbi dity, unspecified class, unspecified obesity type 05/15/2025 Assessment & Plan (06/05/2025 7:51 AM CDT): Continue Accu-Chek, SSI, Lantus Assessment & Plan (06/04/2025 8:08 AM CDT): Continue Accu-Chek, SSI, Lantus Assessment & Plan (06/03/2025 2:30 PM CDT): Continue Accu-Chek, SSI, Lantus Assessment & Plan (06/02/2025 7:46 AM CDT): - per notes from 04/19, home regimen is 17U lantus in AM, 12U TID AC + slide 0- 10U - Noted to have hypoglycemic episode on 87AM - BG has been ranging 220-300s on 05/20 PLAN: - Cont SSI 0-18U, accuchecks with meals - Cont lantus 5U qhs Assessment & Plan (06/01/2025 8:46 AM CDT): - per notes from 04/19, home regimen is 17U lantus in AM, 12U TID AC + slide 0- 10U - Noted to have hypoglycemic episode on 8/7AM - BG has been ranging 220-300s on 05/20 PLAN: - Cont SSI 0-18U, accuchecks with meals - Cont lantus 5U qhs Assessment & Plan (05/31/2025 7:32 AM CDT): - per notes from 04/19, home regimen is 17U lantus in AM, 12U TID AC + slide 0- 10U - Noted to have hypoglycemic episode on 8/7AM - BG has been ranging 220-300s on 05/20 PLAN: - Cont SSI 0-18U, accuchecks with meals - Cont lantus 5U qhs Assessment & Plan (05/30/2025 8:51 AM CDT): - per notes from 04/19, home regimen is 17U lantus in AM, 12U TID AC + slide 0- 10U - Noted to have hypoglycemic episode on 87AM - BG has been ranging 220-300s on 05/20 PLAN: - Cont SSI 0-18U, accuchecks with meals - Cont lantus 5U qhs Assessment & Plan (05/29/2025 3:11 PM CDT): - per notes from 04/19, home regimen is 17U lantus in AM, 12U TID AC + slide 0- 10U - Noted to have hypoglycemic episode on 87AM - BG has been ranging 220-300s on 05/20 PLAN: - Cont SSI 0-18U, accuchecks with meals - Cont lantus 5U qhs Assessment & Plan (05/16/2025 7:26 AM CDT): - outpatient follow up Assessment & Plan (05/15/2025 11:15 PM CDT): - outpatient follow up Demand ischemia 05/15/2025 Assessment & Plan (06/05/2025 3:19 PM CDT): - TTE with EF of 25% on [...] Cont on cefadroxil 500mg BID on discharge Assessment & Plan (06/04/2025 8:08 AM CDT): - TTE with EF of 25% on 05/27/25 Patient's blood pressure is staying soft Had recent cardiogenic/mixed shock Not volume overloaded, discontinued Bumex - Empagliflozin 10mg Continue metop succ and entresto -regarding severe TR: not to have inpt intervention but will need outpt f/u. Pt was supposed to follow with [facility], advise to keep that appointment but will refer to [facility] in case Continue home cefadroxil; (cont on cefadroxil 500mg BID on discharge) Assessment & Plan (06/03/2025 2:30 PM CDT): - TTE with EF of 25% on 05/27/25 Patient's blood pressure is staying soft Had recent cardiogenic/mixed shock Not volume overloaded, discontinued Bumex - Empagliflozin 10mg Continue metop succ and entresto -regarding severe TR: not to have inpt intervention but will need outpt f/u. Pt was supposed to follow with [facility], advise to keep that appointment but will refer to [facility] in case Continue home cefadroxil; (cont on cefadroxil 500mg BID on discharge) Assessment & Plan (06/02/2025 7:46 AM CDT): - TTE with EF of 25% on 05/27/25 Patient's blood pressure is staying soft Had recent cardiogenic/mixed shock Not volume overloaded, discontinued Bumex - Empagliflozin 10mg Continue metop succ and entresto -regarding severe TR: not to have inpt intervention but will need outpt f/u. Pt was supposed to follow with [facility], advise to keep that appointment but will refer to [facility] in case - Resumed home cefadroxil; cont on cefadroxil 500mg BID on discharge Assessment & Plan (06/01/2025 8:46 AM CDT): - TTE with EF of 25% on 05/27/25 Patient's blood pressure is staying soft Had recent cardiogenic/mixed shock Not volume overloaded, discontinued Bumex - Empagliflozin 10mg Continue metop succ and entresto -regarding severe TR: not to have inpt intervention but will need outpt f/u. Pt was supposed to follow with [facility], advise to keep that appointment but will refer to [facility] in case - Resumed home cefadroxil; cont on cefadroxil 500mg BID on discharge Assessment & Plan (05/31/2025 2:41 PM CDT): - TTE with EF of 25% on 05/27/25 Patient's blood pressure is staying soft Had recent cardiogenic/mixed shock Not volume overloaded, discontinued Bumex - Empagliflozin 10mg Continue metop succ and entresto -regarding severe TR: not to have inpt intervention but will need outpt f/u. Pt was supposed to follow with [facility], advise to keep that appointment but will refer to [facility] in case - Resumed home cefadroxil; cont on cefadroxil 500mg BID on discharge Assessment & Plan (05/30/2025 8:51 AM CDT): - TTE with EF of 25% on [...] f/u. Pt was supposed to follow with [facility], advise to keep that appointment but will refer to [facility] in case - Resumed home cefadroxil; cont on cefadroxil 500mg BID on discharge Assessment & Plan (05/29/2025 3:11 PM CDT): - TTE with EF of 25% on [...] f/u. Pt was supposed to follow with [facility], advise to keep that appointment but will refer to [facility] in case - Resumed home cefadroxil; cont on cefadroxil 500mg BID on discharge Assessment & Plan (05/16/2025 1:20 PM CDT): - Acute decompensated heart Assessment & Plan (05/15/2025 11:22 PM CDT): - Acute decompensated heart History of endocarditis 05/15/2025 Assessment & Plan (06/05/2025 3:19 PM CDT): - TTE with EF of 25% on 05/27/25 Patient's blood pressure is staying soft Had recent cardiogenic/mixed shock Not volume overloaded, discontinued Bumex - Empagliflozin 10mg Continue metop succ and entresto -regarding severe TR: not to have inpt intervention but will need outpt f/u. Pt was supposed to follow with [facility], advise to keep that appointment but will refer to [facility] in case Cont on cefadroxil 500mg BID on discharge Assessment & Plan (06/04/2025 8:08 AM CDT): - TTE with EF of 25% on 05/27/25 Patient's blood pressure is staying soft Had recent cardiogenic/mixed shock Not volume overloaded, discontinued Bumex - Empagliflozin 10mg Continue metop succ and entresto -regarding severe TR: not to have inpt intervention but will need outpt f/u. Pt was supposed to follow with [facility], advise to keep that appointment but will refer to [facility] in case Continue home cefadroxil; (cont on cefadroxil 500mg BID on discharge) Assessment & Plan (06/03/2025 2:30 PM CDT): - TTE with EF of 25% on 05/27/25 Patient's blood pressure is staying soft Had recent cardiogenic/mixed shock Not volume overloaded, discontinued Bumex - Empagliflozin 10mg Continue metop succ and entresto -regarding severe TR: not to have inpt intervention but will need outpt f/u. Pt was supposed to follow with [facility], advise to keep that appointment but will refer to [facility] in case Continue home cefadroxil; (cont on cefadroxil 500mg BID on discharge) Assessment & Plan (06/02/2025 7:46 AM CDT): - TTE with EF of 25% on 05/27/25 Patient's blood pressure is staying soft Had recent cardiogenic/mixed shock Not volume overloaded, discontinued Bumex - Empagliflozin 10mg Continue metop succ and entresto -regarding severe TR: not to have inpt intervention but will need outpt f/u. Pt was supposed to follow with [facility], advise to keep that appointment but will refer to [facility] in case - Resumed home cefadroxil; cont on cefadroxil 500mg BID on discharge Assessment & Plan (06/01/2025 8:46 AM CDT): - TTE with EF of 25% on 05/27/25 Patient's blood pressure is staying soft Had recent cardiogenic/mixed shock Not volume overloaded, discontinued Bumex - Empagliflozin 10mg Continue metop succ and entresto -regarding severe TR: not to have inpt intervention but will need outpt f/u. Pt was supposed to follow with [facility], advise to keep that appointment but will refer to [facility] in case - Resumed home cefadroxil; cont on cefadroxil 500mg BID on discharge Assessment & Plan (05/31/2025 2:41 PM CDT): - TTE with EF of 25% on 05/27/25 Patient's blood pressure is staying soft Had recent cardiogenic/mixed shock Not volume overloaded, discontinued Bumex - Empagliflozin 10mg Continue metop succ and entresto -regarding severe TR: not to have inpt intervention but will need outpt f/u. Pt was supposed to follow with [facility], advise to keep that appointment but will refer to [facility] in case - Resumed home cefadroxil; cont on cefadroxil 500mg BID on discharge Assessment & Plan (05/30/2025 8:51 AM CDT): - TTE with EF of 25% on [...] f/u. 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 - on [employer] suppressive abx therapy with cefadroxil Agitation 05/15/2025 Assessment & Plan (06/05/2025 7:51 AM CDT): - Pt noted to be obtunded at [...] HF exacerbations in past - Avoid benzos Assessment & Plan (06/04/2025 11:26 AM CDT): - Pt noted to be obtunded at [...] HF exacerbations in past - Avoid benzos Assessment & Plan (06/03/2025 2:30 PM CDT): - Pt noted to be obtunded at [...] HF exacerbations in past - Avoid benzos Assessment & Plan (06/02/2025 7:46 AM CDT): - Pt noted to be obtunded at [...] HF exacerbations in past - Avoid benzos Assessment & Plan (06/01/2025 8:46 AM CDT): - Pt noted to be obtunded at [...] in past - Avoid benzos as possible Assessment & Plan (05/31/2025 2:41 PM CDT): - Pt noted to be obtunded at [...] HF exacerbations in past - AVOID BENZOS Assessment & Plan (05/30/2025 8:51 AM CDT): - Pt noted to be obtunded at [...] making and complex family situation, following peripherally Assessment & Plan (05/29/2025 3:11 PM CDT): - Pt noted to be obtunded at [...] making and complex family situation, following peripherally Assessment & Plan (05/16/2025 1:20 PM CDT): - patient awake and communicative, but difficulty recalling details of her medical history - at risk for delirium, will attempt to reorient I develops delirium, avoid haldol given QT prolongation Assessment & Plan (05/15/2025 11:22 PM CDT): - patient awake and communicative, but difficulty recalling details of her medical history - at risk for delirium, will attempt to reorient I develops delirium, avoid haldol given QT prolongation Hypothyroidism 05/15/2025 Assessment & Plan (06/05/2025 7:51 AM CDT): - Cont home levothyroxine Assessment & Plan (06/04/2025 8:08 AM CDT): - Cont home levothyroxine Assessment & Plan (06/03/2025 2:30 PM CDT): - Cont home levothyroxine Assessment & Plan (06/02/2025 7:46 AM CDT): - Cont home levothyroxine Assessment & Plan (06/01/2025 8:46 AM CDT): - Cont home levothyroxine Assessment & Plan (05/31/2025 7:32 AM CDT): - Cont home levothyroxine Assessment & Plan (05/30/2025 8:51 AM CDT): - Cont home levothyroxine Assessment & Plan (05/29/2025 3:11 PM CDT): - Cont home levothyroxine Assessment & Plan (05/16/2025 7:26 AM CDT): - 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 Assessment & Plan (05/15/2025 10:56 PM CDT): - 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 Atrial fibrillation 05/15/2025 Assessment & Plan (06/05/2025 7:51 AM CDT): - Cont home xarelto, had not previously been getting due to agitation - RVR resolved after digoxin load - Unable to do DCCV d/t LA thrombus PLAN: - Cont Eliquis - Will need repeat CHANCE in 3 months on discharge to reassess thrombus Assessment & Plan (06/05/2025 7:48 AM CDT): - Cont home xarelto, had not previously been getting due to agitation - RVR resolved after digoxin load - Unable to do DCCV d/t LA thrombus PLAN: - Cont Eliquis - Will need repeat CHANCE in 3 months on discharge to reassess thrombus Assessment & Plan (06/05/2025 7:48 AM CDT): - Cont home xarelto, had not previously been getting due to agitation - RVR resolved after digoxin load - Unable to do DCCV d/t LA thrombus PLAN: - Cont Eliquis - Will need repeat CHANCE in 3 months on discharge to reassess thrombus Assessment & Plan (06/02/2025 7:46 AM CDT): - Cont home xarelto, had not previously been getting due to agitation - RVR resolved after digoxin load - Unable to do DCCV d/t LA thrombus PLAN: - Cont xarelto - Will need repeat CHANCE in 3 months on discharge to reassess thrombus Assessment & Plan (06/01/2025 8:46 AM CDT): - Cont home xarelto, had not previously been getting due to agitation - RVR resolved after digoxin load - Unable to do DCCV d/t LA thrombus PLAN: - Cont xarelto - Will need repeat CHANCE in 3 months on discharge to reassess thrombus Assessment & Plan (05/31/2025 2:41 PM CDT): - Cont home xarelto, had not previously been getting due to agitation - RVR resolved after digoxin load - Unable to do DCCV d/t LA thrombus PLAN: - Cont xarelto - Will need repeat CHANCE in 3 months on discharge to reassess thrombus Assessment & Plan (05/30/2025 8:51 AM CDT): - Cont home xarelto, had not previously been getting due to agitation - RVR resolved after digoxin load - Unable to do DCCV d/t LA thrombus PLAN: - Cont xarelto - metop succ 100mg qdaily - Will need repeat CHANCE in 3 months on discharge to reassess thrombus Assessment & Plan (05/29/2025 3:11 PM CDT): - Cont home xarelto, had not previously been getting due to agitation - RVR resolved after digoxin load - Unable to do DCCV d/t LA thrombus PLAN: - Cont xarelto - metop succ 100mg qdaily - Will need repeat CHANCE in 3 months on discharge to reassess thrombus Assessment & Plan (05/16/2025 1:20 PM CDT): - 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, 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 Assessment & Plan (05/15/2025 11:22 PM CDT): - 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, 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 Prolonged Q-T interval on ECG 05/15/2025 Assessment & Plan (06/05/2025 7:51 AM CDT): - Cont home xarelto, had not previously been getting due to agitation - RVR resolved after digoxin load - Unable to do DCCV d/t LA thrombus PLAN: - Cont Eliquis - Will need repeat CHANCE in 3 months on discharge to reassess thrombus Assessment & Plan (06/05/2025 7:48 AM CDT): - Cont home xarelto, had not previously been getting due to agitation - RVR resolved after digoxin load - Unable to do DCCV d/t LA thrombus PLAN: - Cont Eliquis - Will need repeat CHANCE in 3 months on discharge to reassess thrombus Assessment & Plan (06/05/2025 7:48 AM CDT): - Cont home xarelto, had not previously been getting due to agitation - RVR resolved after digoxin load - Unable to do DCCV d/t LA thrombus PLAN: - Cont Eliquis - Will need repeat CHANCE in 3 months on discharge to reassess thrombus Assessment & Plan (06/02/2025 7:46 AM CDT): - Cont home xarelto, had not previously been getting due to agitation - RVR resolved after digoxin load - Unable to do DCCV d/t LA thrombus PLAN: - Cont xarelto - Will need repeat CHANCE in 3 months on discharge to reassess thrombus Assessment & Plan (06/01/2025 8:46 AM CDT): - Cont home xarelto, had not previously been getting due to agitation - RVR resolved after digoxin load - Unable to do DCCV d/t LA thrombus PLAN: - Cont xarelto - Will need repeat CHANCE in 3 months on discharge to reassess thrombus Assessment & Plan (05/31/2025 2:41 PM CDT): - Cont home xarelto, had not previously been getting due to agitation - RVR resolved after digoxin load - Unable to do DCCV d/t LA thrombus PLAN: - Cont xarelto - Will need repeat CHANCE in 3 months on discharge to reassess thrombus Assessment & Plan (05/30/2025 8:51 AM CDT): - Cont home xarelto, had not previously been getting due to agitation - RVR resolved after digoxin load - Unable to do DCCV d/t LA thrombus PLAN: - Cont xarelto - metop succ 100mg qdaily - Will need repeat CHANCE in 3 months on discharge to reassess thrombus Assessment & Plan (05/29/2025 3:11 PM CDT): - Cont home xarelto, had not previously been getting due to agitation - RVR resolved after digoxin load - Unable to do DCCV d/t LA thrombus PLAN: - Cont xarelto - metop succ 100mg qdaily - Will need repeat CHANCE in 3 months on discharge to reassess thrombus Assessment & Plan (05/16/2025 7:26 AM CDT): - likely related to electrolyte abnormalities and decompensated heart failre - avoiding QT prolonging meds Assessment & Plan (05/15/2025 10:56 PM CDT): - likely related to electrolyte abnormalities and decompensated heart failre - avoiding QT prolonging meds Pericardial effusion 05/15/2025 Assessment & Plan (06/05/2025 7:51 AM CDT): Resolved Assessment & Plan (06/04/2025 8:08 AM CDT): Resolved Assessment & Plan (06/03/2025 2:30 PM CDT): Resolved Assessment & Plan (06/02/2025 7:46 AM CDT): Resolved Assessment & Plan (06/01/2025 8:46 AM CDT): Resolved Assessment & Plan (05/31/2025 2:41 PM CDT): Resolved Assessment & Plan (05/30/2025 8:51 AM CDT): Pt had to be mechanically intubated on 88 AM for c/f airway protection PLAN: - Extubated 05/24, passed swallow eval - Pulmonary toilet Assessment & Plan (05/29/2025 3:11 PM CDT): Pt had to be mechanically intubated on 8/8 AM for c/f airway protection PLAN: - Extubated 05/24, passed swallow eval - Pulmonary toilet Assessment & Plan (05/16/2025 7:26 AM CDT): - no hypotension to suggest tamponade - may be related to overall hypervolemic state - diuresis as above, on telemetry Assessment & Plan (05/15/2025 10:56 PM CDT): - no hypotension to suggest tamponade - may be related to overall hypervolemic state - diuresis as above, on telemetry Acute kidney injury 05/15/2025 Assessment & Plan (06/05/2025 7:51 AM CDT): - BUN increasing, will ctm RFP. Likely iso hypovolemia from diuresis. Diuretics held for now Assessment & Plan (06/04/2025 8:08 AM CDT): - BUN increasing, will ctm RFP. Likely iso hypovolemia from diuresis. Diuretics held for now Assessment & Plan (06/03/2025 2:30 PM CDT): - BUN increasing, will ctm RFP. Likely iso hypovolemia from diuresis. Diuretics held for now Assessment & Plan (06/02/2025 7:46 AM CDT): - BUN increasing, will ctm RFP. Likely iso hypovolemia from diuresis. Diuretics held for now Assessment & Plan (06/01/2025 8:46 AM CDT): - BUN increasing, will ctm RFP. Likely iso hypovolemia from diuresis. Diuretics held for now Assessment & Plan (05/31/2025 7:32 AM CDT): - BUN increasing, will ctm RFP. Likely iso hypovolemia from diuresis. Diuretic holiday 05/26 Assessment & Plan (05/30/2025 8:51 AM CDT): - BUN increasing, will ctm RFP. Likely iso hypovolemia from diuresis. Diuretic holiday 05/26 Assessment & Plan (05/29/2025 3:11 PM CDT): - BUN increasing, will ctm RFP. Likely iso hypovolemia from diuresis. Diuretic holiday 05/26 Assessment & Plan (05/16/2025 7:26 AM CDT): - due to renal congestion from hypervolemia - diuresing, avoiding nephrotoxins - obtaining urine lytes Assessment & Plan (05/15/2025 11:00 PM CDT): - due to renal congestion from hypervolemia - diuresing, avoiding nephrotoxins - obtaining urine lytes Type 2 diabetes mellitus, wi thout long-term current use of insulin 05/15/2025 Assessment & Plan (06/05/2025 7:51 AM CDT): Continue Accu-Chek, SSI, Lantus Assessment & Plan (06/04/2025 8:08 AM CDT): Continue Accu-Chek, SSI, Lantus Assessment & Plan (06/03/2025 2:30 PM CDT): Continue Accu-Chek, SSI, Lantus Assessment & Plan (06/02/2025 7:46 AM CDT): - per notes from 04/19, home regimen is 17U lantus in AM, 12U TID AC + slide 0- 10U - Noted to have hypoglycemic episode on 87AM - BG has been ranging 220-300s on 05/20 PLAN: - Cont SSI 0-18U, accuchecks with meals - Cont lantus 5U qhs Assessment & Plan (06/01/2025 8:46 AM CDT): - per notes from 04/19, home regimen is 17U lantus in AM, 12U TID AC + slide 0- 10U - Noted to have hypoglycemic episode on 8/7AM - BG has been ranging 220-300s on 05/20 PLAN: - Cont SSI 0-18U, accuchecks with meals - Cont lantus 5U qhs Assessment & Plan (05/31/2025 7:32 AM CDT): - per notes from 04/19, home regimen is 17U lantus in AM, 12U TID AC + slide 0- 10U - Noted to have hypoglycemic episode on 8/7AM - BG has been ranging 220-300s on 05/20 PLAN: - Cont SSI 0-18U, accuchecks with meals - Cont lantus 5U qhs Assessment & Plan (05/30/2025 8:51 AM CDT): - per notes from 04/19, home regimen is 17U lantus in AM, 12U TID AC + slide 0- 10U - Noted to have hypoglycemic episode on 8/7AM - BG has been ranging 220-300s on 05/20 PLAN: - Cont SSI 0-18U, accuchecks with meals - Cont lantus 5U qhs Assessment & Plan (05/29/2025 3:11 PM CDT): - per notes from 04/19, home regimen is 17U lantus in AM, 12U TID AC + slide 0- 10U - Noted to have hypoglycemic episode on 87AM - BG has been ranging 220-300s on 05/20 PLAN: - Cont SSI 0-18U, accuchecks with meals - Cont lantus 5U qhs Assessment & Plan (05/16/2025 1:20 PM CDT): - hypoglycemic protocols - DC SSI given hypoglycemia Assessment & Plan (05/15/2025 11:22 PM CDT): - q6h ssi, hypoglycemic protocols Shortness of breath 05/15/2025 Assessment & Plan (06/05/2025 7:51 AM CDT): Resolved Assessment & Plan (06/04/2025 8:08 AM CDT): Resolved Assessment & Plan (06/03/2025 2:30 PM CDT): Resolved Assessment & Plan (06/02/2025 7:46 AM CDT): Resolved Assessment & Plan (06/01/2025 8:46 AM CDT): Resolved Assessment & Plan (05/31/2025 2:41 PM CDT): Resolved Assessment & Plan (05/30/2025 8:51 AM CDT): Pt had to be mechanically intubated on 88 AM for c/f airway protection PLAN: - Extubated 05/24, passed swallow eval - Pulmonary toilet Assessment & Plan (05/29/2025 3:11 PM CDT): Pt had to be mechanically intubated on 88 AM for c/f airway protection PLAN: - Extubated 05/24, passed swallow eval - Pulmonary toilet Resolved Problems Problem Noted Date Diagnosed Date Resolved Date Shortness of breath 05/15/2025 05/15/20 Azotemia 05/15/2025 05/15/2025 Elevated troponin 05/15/2025 05/15/2025 Chest pain, unspecified type 05/15/2025 05/15/2025 Other shock 05/15/2025 05/29/2025 Encounters Date Type Department Care Team Description 06/07/2025 Telephone Transitional Care at [facility] [address] [place] [address] Radha Villegas, manager fiber 05/23/2025 Results Follow-Up [facility] ICU [address] [place] [address] Radha Farrell RN 05/20/2025 10:14 AM CDT - 05/20/2025 11:59 PM CDT Hospital Encounter [facility] - Cardiac Family Development Specialist [address] [place] [address] Linda Lezama MD Discharge Disposition: Home or Self Care 05/15/2025 6:17 PM CDT - 06/06/2025 5:19 PM CDT Hospital Encounter [facility] [address] [place] [address] Juno Hernandez MD Eschbach, Heather, DO Gandhi, Avi, MD Mikhalkova, Deana, MD Mehanni, Mina M, MD Hassan, Abdalla H, MD Becker, Erica, MD Kamal, Syeda, MD Hoque, Farzana, MD Brotherton, Timothy, MD Hospitalist Discharge Disposition: [facility] Facility 05/15/2025 Travel from Last 3 Months Social History Tobacco Use Types Packs/Day Years [...] and heating? Not hard at all 05/15/2025 [facility] - Occupational Stress [...] any time in the past 12 [facility], were you homeless or living in a [...] Mass Index 34.83 05/28/2025 7:52 AM CDT Plan of Treatment Upcoming Encounters Date Type Department Care Team (Late st Contact Info) Description 11/28/2025 1:30 PM STADIUM MANAGER Office Visit [facility] - [facility] [address] [facility] [place] [phone] Tiffanie Brown MD [address] [place] [phone] Health Maintenance Due Date Last Done Comments COLON MONITORING 1961 COLONOSCOPY - COLON CA SCREENING 1961 CT COLONOGRAPHY - COLON CA SCREENING 1961 FIT - COLON CA SCREENING 1961 FLEX SIG - COLON CA SCREENING 1961 HIV SCREENING 1976 HEPATITIS C SCREENING 12/15/1979 DTAP/TDAP/TD VACCINES (1 - Tdap) 1980 PNEUMOCOCCAL VACCINE 50+ (1 of 2 - PCV) 1980 DIABETES-STATIN 2001 ZOSTER VACCINE (1 of 2) 12/20/2011 Respiratory Syncytial Virus (RSV) Vaccine Pt: or over 60 yrs (1 - Risk 60-74 years 1-dose series) 2021 COVID-19 VACCINE (3 - season) 2024 01/18/2021, 12/23/2020 DEPRESSION SCREENING 10/10/2024 DIABETES - URINE PROTEIN SCREENING 10/10/2024 DIABETES RETINOPATHY SCREENING 05/15/2025 DIABETES-FOOT EXAM WITH MONOFILAMENT 05/15/2025 INFLUENZA VACCINE (#1) 2025 , 07/18/2020, 06/22/2019, Additional history exists COLOGUARD (AGES 45-75) - COLON CA SCREENING 09/23/2025 09/23/2022 Colorectal Cancer Screening 09/23/2025 PAP SMEAR 11/09/2025 11/09/2022 DIABETES-HGB A1C 11/16/2025 05/16/2025, , 10/21/2024, Additional history exists MAMMOGRAM 12/01/2025 12/01/2023, 11/11, 11/25/2022, Additional history exists DIABETES-SERUM CREATININE 06/06/20262024, 06/05/2025, 06/04/2025, Additional history exists HEPATITIS B VACCINE Aged Out No longe r eligible based on patient's age to complete this topic HIB VACCINE Aged Out No longer eligi ble based on patient's age to complete this topic HPV VACCINE Aged Out No longer eligi ble based on patient's age to complete this topic MENINGOCOCCAL (Group B) VACCINE SHARED DECISION-MAKING Aged Out No longer eligible based on patient's age to complete this topic MENINGOCOCCAL GROUPS A/C/Y/W VACCINE Aged Out No longer eligible based on patient's age to complete this topic Procedures Procedure Name Priority Date/Time Associated Diagnosis Comments GLUCOSE - POINT OF CARE Routine 06/06/2025 11:18 AM CDT GLUCOSE - POINT OF CARE Routine 06/06/2025 8:10 AM CDT PHOSPHORUS BLOOD Routine 06/06/2025 5:19 AM CDT COMPREHENSIVE METABOLIC PANEL AM Draw 06/06/2025 5:19 AM CDT MAGNESIUM BLOOD Routine 06/06/2025 5:19 AM CDT CBC W/O DIFFERENTIAL AM Draw 06/06/2025 5:19 AM CDT GLUCOSE - POINT OF CARE Routine 06/05/2025 8:13 PM CDT GLUCOSE - POINT OF CARE Routine 06/05/2025 5:45 PM CDT GLUCOSE - POINT OF CARE Routine 06/05/2025 12:28 PM CDT GLUCOSE - POINT OF CARE Routine 06/05/2025 8:53 AM CDT PHOSPHORUS BLOOD Routine 06/05/2025 4:41 AM CDT COMPREHENSIVE METABOLIC PANEL AM Draw 06/05/2025 4:41 AM CDT MAGNESIUM BLOOD Routine 06/05/2025 4:41 AM CDT CBC W/O DIFFERENTIAL AM Draw 06/05/2025 4:41 AM CDT GLUCOSE - POINT OF CARE Routine 06/04/2025 9:46 PM CDT GLUCOSE - POINT OF CARE Routine 06/04/2025 8:49 PM CDT GLUCOSE - POINT OF CARE Routine 06/04/2025 5:33 PM CDT GLUCOSE - POINT OF CARE Routine 06/04/2025 11:53 AM CDT GLUCOSE - POINT OF CARE Routine 06/04/2025 8:51 AM CDT PHOSPHORUS BLOOD Routine 06/04/2025 4:10 AM CDT COMPREHENSIVE METABOLIC PANEL AM Draw 06/04/2025 4:10 AM CDT MAGNESIUM BLOOD Routine 06/04/2025 4:10 AM CDT CBC W/O DIFFERENTIAL AM Draw 06/04/2025 4:10 AM CDT GLUCOSE - POINT OF CARE Routine 06/03/2025 9:36 PM CDT GLUCOSE - POINT OF CARE Routine 06/03/2025 5:08 PM CDT GLUCOSE - POINT OF CARE Routine 06/03/2025 12:54 PM CDT GLUCOSE - POINT OF CARE Routine 06/03/2025 8:12 AM CDT PHOSPHORUS BLOOD Routine 06/03/2025 4:32 AM CDT COMPREHENSIVE METABOLIC PANEL AM Draw 06/03/2025 4:32 AM CDT MAGNESIUM BLOOD Routine 06/03/2025 4:32 AM CDT CBC W/O DIFFERENTIAL AM Draw 06/03/2025 4:32 AM CDT GLUCOSE - POINT [...] OF CARE Routine 06/02/2025 8:26 AM CDT PHOSPHORUS BLOOD Routine 06/02/2025 5:59 AM CDT COMPREHENSIVE METABOLIC PANEL AM Draw 06/02/2025 5:59 AM CDT MAGNESIUM BLOOD Routine 06/02/2025 5:59 AM CDT CBC W/O DIFFERENTIAL AM Draw 06/02/2025 5:59 AM CDT GLUCOSE - POINT OF CARE Routine 06/01/2025 8:49 PM CDT GLUCOSE - POINT OF CARE Routine 06/01/2025 6:05 PM CDT GLUCOSE - POINT OF CARE Routine 06/01/2025 12:18 PM CDT GLUCOSE - POINT OF CARE Routine 06/01/2025 8:43 AM CDT PHOSPHORUS BLOOD Routine 06/01/2025 4:06 AM CDT COMPREHENSIVE METABOLIC PANEL AM Draw 06/01/2025 4:06 AM CDT MAGNESIUM BLOOD Routine 06/01/2025 4:06 AM CDT CBC W/O DIFFERENTIAL AM Draw 06/01/2025 4:05 AM CDT GLUCOSE - POINT OF CARE Routine 05/31/2025 9:28 PM CDT GLUCOSE - POINT OF CARE Routine 05/31/2025 5:13 PM CDT GLUCOSE - POINT OF CARE Routine 05/31/2025 12:44 PM CDT GLUCOSE - POINT OF CARE Routine 05/31/2025 8:52 AM CDT PHOSPHORUS BLOOD Routine 05/31/2025 2:21 AM CDT COMPREHENSIVE METABOLIC PANEL AM Draw 05/31/2025 2:21 AM CDT MAGNESIUM BLOOD Routine 05/31/2025 2:21 AM CDT CBC W/O DIFFERENTIAL AM Draw 05/31/2025 2:21 AM CDT GLUCOSE - POINT OF CARE Routine 05/30/2025 8:24 PM CDT FOLATE Routine 05/30/2025 7:00 PM CDT GLUCOSE - POINT OF CARE Routine 05/30/2025 5:12 PM CDT GLUCOSE - POINT OF CARE Routine 05/30/2025 11:28 AM CDT GLUCOSE - POINT OF CARE Routine 05/30/2025 8:44 AM CDT VITAMIN B12 Routine 05/30/2025 3:05 AM CDT PHOSPHORUS BLOOD Routine 05/30/2025 3:05 AM CDT COMPREHENSIVE METABOLIC PANEL AM Draw 05/30/2025 3:05 AM CDT MAGNESIUM BLOOD Routine 05/30/2025 3:05 AM CDT CBC W/O DIFFERENTIAL AM Draw 05/30/2025 3:05 AM CDT GLUCOSE - POINT OF CARE Routine 05/29/2025 9:51 PM CDT GLUCOSE - POINT OF CARE Routine 05/29/2025 5:48 PM CDT GLUCOSE - POINT OF CARE Routine 05/29/2025 12:37 PM CDT GLUCOSE - POINT OF CARE Routine 05/29/2025 8:35 AM CDT PHOSPHORUS BLOOD Routine 05/29/2025 3:31 AM CDT COMPREHENSIVE METABOLIC PANEL AM Draw 05/29/2025 3:31 AM CDT MAGNESIUM BLOOD Routine 05/29/2025 3:31 AM CDT CBC W/O DIFFERENTIAL AM Draw 05/29/2025 3:31 AM CDT GLUCOSE - POINT [...] OF CARE Routine 05/27/2025 9:29 AM CDT MAGNESIUM BLOOD Routine 05/27/2025 4:17 AM CDT CBC W/O DIFFERENTIAL AM Draw 05/27/2025 4:17 AM CDT RENAL FUNCTION PANEL Routine 05/27/2025 4:17 AM CDT Hyponatremia GLUCOSE - POINT OF CARE Routine 05/26/2025 8:05 PM CDT RENAL FUNCTION PANEL Routine 05/26/2025 4:05 PM CDT Hyponatremia GLUCOSE - POINT OF CARE Routine 05/26/2025 4:03 PM CDT GLUCOSE - POINT OF CARE Routine 05/26/2025 12:16 PM CDT GLUCOSE - POINT OF CARE Routine 05/26/2025 8:58 AM CDT MAGNESIUM BLOOD Routine 05/26/2025 4:44 AM CDT CBC W/O DIFFERENTIAL AM Draw 05/26/2025 4:44 AM CDT RENAL FUNCTION PANEL Routine 05/26/2025 4:44 AM CDT Hyponatremia GLUCOSE - POINT OF [...] OF CARE Routine 05/25/2025 8:54 AM CDT MAGNESIUM BLOOD Routine 05/25/2025 5:37 AM CDT RENAL FUNCTION PANEL Routine 05/25/2025 5:37 AM CDT Hyponatremia CBC W/O DIFFERENTIAL AM Draw 05/25/2025 4:18 [...] OF CARE Routine 05/24/2025 5:44 AM CDT MAGNESIUM BLOOD Routine 05/24/2025 5:27 AM CDT CBC W/O DIFFERENTIAL AM Draw 05/24/2025 5:27 AM CDT RENAL FUNCTION PANEL Routine 05/24/2025 5:27 AM CDT Hyponatremia GLUCOSE - POINT OF [...] OF CARE Routine 05/23/2025 3:27 AM CDT MAGNESIUM BLOOD Routine 05/23/2025 3:26 AM CDT CBC W/O DIFFERENTIAL AM Draw 05/23/2025 3:26 AM CDT RENAL FUNCTION PANEL Routine 05/23/2025 3:26 AM CDT Hyponatremia GLUCOSE - POINT OF CARE Routine 05/23/2025 12:15 AM CDT GLUCOSE - POINT OF CARE Routine 05/22/2025 7:56 PM CDT GLUCOSE - POINT OF CARE Routine 05/22/2025 4:13 PM CDT MAGNESIUM BLOOD Routine 05/22/2025 4:04 PM CDT RENAL FUNCTION PANEL Routine 05/22/2025 4:04 PM CDT Hyponatremia GLUCOSE - POINT OF CARE Routine 05/22/2025 12:31 PM CDT GLUCOSE - POINT OF CARE Routine 05/22/2025 8:03 AM CDT BLOOD GASES ART + COOX PANEL Routine 05/22/2025 5:54 AM CDT BLOOD GASES ART + COOX PANEL Timed 05/22/2025 4:15 AM CDT MAGNESIUM BLOOD Routine 05/22/2025 4:15 AM CDT CBC W/O DIFFERENTIAL AM Draw 05/22/2025 4:15 AM CDT RENAL FUNCTION PANEL Routine 05/22/2025 4:15 AM CDT Hyponatremia GLUCOSE - POINT OF CARE Routine 05/22/2025 4:14 AM CDT GLUCOSE - POINT OF CARE Routine 05/22/2025 12:08 AM CDT GLUCOSE - POINT OF CARE Routine 05/21/2025 9:03 PM CDT GLUCOSE - POINT OF CARE Routine 05/21/2025 8:14 PM CDT BLOOD GASES GATO + COOX PANEL STAT 05/21/2025 7:05 PM CDT PHOSPHORUS BLOOD STAT 05/21/2025 7:05 PM CDT MAGNESIUM BLOOD STAT 05/21/2025 7:05 PM CDT CBC W/O DIFFERENTIAL STAT 05/21/2025 7:05 PM CDT COMPREHENSIVE METABOLIC PANEL STAT 05/21/2025 7:05 PM CDT BLOOD GASES ART + COOX PANEL STAT 05/21/2025 7:05 PM CDT LACTIC ACID BLOOD STAT 05/21/2025 7:0 5 PM CDT GLUCOSE - POINT OF CARE Routine 05/21/2025 4:09 PM CDT BLOOD GASES ART + COOX PANEL Routine 05/21/2025 4:01 PM CDT MAGNESIUM BLOOD Routine 05/21/2025 4:01 PM CDT RENAL FUNCTION PANEL Routine 05/21/2025 4:01 PM CDT Hyponatremia GLUCOSE - POINT OF CARE Routine 05/21/2025 12:26 PM CDT GLUCOSE - POINT OF CARE Routine 05/21/2025 8:50 AM CDT BLOOD GASES GATO + COOX PANEL Routine 05/21/2025 8:44 AM CDT LACTIC ACID BLOOD Routine 05/21/2025 8:4 4 AM CDT Acute kidney injury History of endocarditis MAGNESIUM BLOOD Routine 05/21/2025 8:44 AM CDT GLUCOSE - POINT OF CARE Routine 05/21/2025 3:29 AM CDT COMPREHENSIVE METABOLIC PANEL AM Draw 05/21/2025 3:29 AM CDT LACTIC ACID BLOOD Routine 05/21/2025 3:2 9 AM CDT Acute kidney injury History of endocarditis MAGNESIUM BLOOD Routine 05/21/2025 3:29 AM CDT CBC W AUTO DIFFERENTIAL AM Draw 05/21/2025 3:29 AM CDT GLUCOSE - POINT OF CARE Routine 05/21/2025 12:33 AM CDT GLUCOSE - POINT OF CARE Routine 05/20/2025 9:41 PM CDT LACTIC ACID BLOOD Routine 05/20/2025 9:4 1 PM CDT Acute kidney injury History of endocarditis MAGNESIUM BLOOD Routine 05/20/2025 9:41 PM CDT XR ABDOMEN KUB PORTABLE STAT 05/20/2025 6:44 PM CDT Atrial fibrillation, unspecified type (HCC) CT HEAD WO CONTRAST STAT 05/20/2025 6 :18 PM CDT Traumatic brain injury with loss of consciousness, sequela GLUCOSE - POINT OF CARE Routine 05/20/2025 4:57 PM CDT LACTIC ACID BLOOD Routine 05/20/2025 4:4 6 PM CDT Acute kidney injury History of endocarditis RENAL FUNCTION PANEL Routine 05/20/2025 4:46 PM CDT Hyponatremia MAGNESIUM BLOOD Routine 05/20/2025 4:46 PM CDT GLUCOSE - POINT OF CARE Routine 05/20/2025 12:10 PM CDT BLOOD GASES ART + COOX PANEL Routine 05/20/2025 12:10 PM CDT Acute on chronic congestive heart failure, unspecified heart failure type (HCC) LACTIC ACID BLOOD Routine 05/20/2025 12: 10 PM CDT Acute kidney injury History of endocarditis ECHO CHANCE COMPLETE Routine 05/20/2025 10: 14 [...] MAGNESIUM BLOOD Routine 05/20/2025 8:45 AM CDT BLOOD GASES ART + COOX PANEL Routine 05/20/2025 8:45 AM CDT Acute on chronic congestive heart failure, unspecified heart failure type (HCC) LACTIC ACID BLOOD Routine 05/20/2025 8:4 5 AM CDT Acute kidney injury History of endocarditis GLUCOSE - POINT OF CARE Routine 05/20/2025 5:22 AM CDT OSMOLALITY URINE MARCIA 05/20/2025 3:42 AM CDT BLOOD GASES GATO + COOX PANEL Routine 05/20/2025 3:06 AM CDT Acute on chronic congestive heart failure, unspecified heart failure type (HCC) BLOOD GASES ART + COOX PANEL Routine 05/20/2025 3:06 AM CDT Acute on chronic congestive heart failure, unspecified heart failure type (HCC) LACTIC ACID BLOOD Routine 05/20/2025 3:0 6 AM CDT Acute kidney injury History of endocarditis RENAL FUNCTION PANEL Routine 05/20/2025 3:06 AM CDT Hyponatremia OSMOLALITY BLOOD MARCIA 05/20/2025 3:06 AM CDT MAGNESIUM BLOOD Routine 05/20/2025 3:06 AM CDT CBC W AUTO DIFFERENTIAL AM Draw 05/20/2025 3:06 AM CDT GLUCOSE - POINT OF CARE Routine 05/20/2025 12:34 AM CDT BLOOD GASES ART + COOX PANEL Routine 05/19/2025 11:33 PM CDT Acute on chronic congestive heart failure, unspecified heart failure type (HCC) LACTIC ACID BLOOD Routine 05/19/2025 11: 33 PM CDT Acute kidney injury History of endocarditis RENAL FUNCTION PANEL Routine 05/19/2025 8:44 PM CDT Hyponatremia MAGNESIUM BLOOD Routine 05/19/2025 8:44 PM CDT BLOOD GASES ART + COOX PANEL Routine 05/19/2025 8:44 PM CDT Acute on chronic congestive heart failure, unspecified heart failure type (HCC) LACTIC ACID BLOOD Routine 05/19/2025 8:4 4 PM CDT Acute kidney injury History of endocarditis GLUCOSE - POINT OF CARE Routine 05/19/2025 6:59 PM CDT BLOOD GASES GATO + COOX PANEL Routine 05/19/2025 4:55 PM CDT Acute on chronic congestive heart failure, unspecified heart failure type (HCC) BLOOD GASES ART + COOX PANEL Routine 05/19/2025 4:55 PM CDT Acute on chronic congestive heart failure, unspecified heart failure type (HCC) LACTIC ACID BLOOD Routine 05/19/2025 4:5 5 PM CDT Acute kidney injury History of endocarditis RENAL FUNCTION PANEL Routine 05/19/2025 4:55 PM CDT Hyponatremia MAGNESIUM BLOOD Routine 05/19/2025 4:55 PM CDT CULTURE SPUTUM+GRAM STAIN Routine 05/19/2025 4:20 PM CDT BLOOD GASES ART + COOX PANEL Routine 05/19/2025 12:41 PM CDT Acute on chronic congestive heart failure, unspecified heart failure type (HCC) LACTIC ACID BLOOD Routine 05/19/2025 12: 41 PM CDT Acute kidney injury History of endocarditis GLUCOSE - POINT OF CARE Routine 05/19/2025 12:38 PM CDT DIGOXIN LEVEL Timed 05/19/2025 10:21 AM CDT RENAL FUNCTION PANEL Routine 05/19/2025 10:21 AM CDT Hyponatremia MAGNESIUM BLOOD Routine 05/19/2025 10:21 AM CDT BLOOD GASES ART + COOX PANEL Routine 05/19/2025 9:00 AM CDT Acute on chronic congestive heart failure, unspecified heart failure type (HCC) LACTIC ACID BLOOD Routine 05/19/2025 9:0 0 AM CDT Acute kidney injury History of endocarditis GLUCOSE - POINT OF CARE Routine 05/19/2025 8:59 AM CDT XR CHEST 1VW PORTABLE Routine 05/19/2025 6:11 AM CDT Shortness of breath Acute on chronic congestive heart failure, unspecified heart failure type (HCC) LACTIC ACID BLOOD Routine 05/19/2025 4:0 0 AM CDT Acute kidney injury History of endocarditis BLOOD GASES GATO + COOX PANEL Routine 05/19/2025 4:00 AM CDT Acute on chronic congestive heart failure, unspecified heart failure type (HCC) BLOOD GASES ART + COOX PANEL Routine 05/19/2025 4:00 AM CDT RENAL FUNCTION PANEL Routine 05/19/2025 4:00 AM CDT Hyponatremia TRIGLYCERIDES BLOOD AM Draw 05/19/2025 4 :00 AM CDT OSMOLALITY BLOOD MARCIA 05/19/2025 4:00 AM CDT MAGNESIUM BLOOD Routine 05/19/2025 4:00 AM CDT CBC W AUTO DIFFERENTIAL AM Draw 05/19/2025 4:00 AM CDT LACTIC ACID BLOOD Routine 05/18/2025 10: 51 PM CDT Acute kidney injury History of endocarditis BLOOD GASES GATO + COOX PANEL Routine 05/18/2025 10:51 PM CDT Acute on chronic congestive heart failure, unspecified heart failure type (HCC) BLOOD GASES ART + COOX PANEL Routine 05/18/2025 10:51 PM CDT RENAL FUNCTION PANEL Routine 05/18/2025 10:51 PM CDT Hyponatremia MAGNESIUM BLOOD Routine 05/18/2025 10:51 PM CDT GLUCOSE - POINT OF CARE Routine 05/18/2025 6:26 PM CDT LACTIC ACID BLOOD Routine 05/18/2025 4:3 7 PM CDT Acute kidney injury History of endocarditis BLOOD GASES GATO + COOX PANEL Routine 05/18/2025 3:48 PM CDT Acute on chronic congestive heart failure, unspecified heart failure type (HCC) BLOOD GASES ART + COOX PANEL Routine 05/18/2025 2:50 PM CDT RENAL FUNCTION PANEL Routine 05/18/2025 2:50 PM [...] FOR RECALIBRATION Routine 05/18/2025 3:05 AM CDT BLOOD GASES ART + COOX PANEL Routine 05/18/2025 3:05 AM CDT RENAL FUNCTION PANEL Routine 05/18/2025 3:05 AM CDT Hyponatremia OSMOLALITY BLOOD MARCIA 05/18/2025 3:05 AM CDT MAGNESIUM BLOOD Routine 05/18/2025 3:05 AM CDT CBC W AUTO DIFFERENTIAL AM Draw 05/18/2025 3:05 AM CDT LACTIC ACID BLOOD Routine 05/18/2025 3:0 5 AM CDT Acute kidney injury History of endocarditis BILIRUBIN DIRECT Routine 05/18/2025 3:05 AM CDT GLUCOSE - POINT OF CARE Routine 05/17/2025 11:07 PM CDT SVO2 FOR RECALIBRATION Routine 05/17/2025 10:12 PM CDT BLOOD GASES ART + COOX PANEL Routine 05/17/2025 10:12 PM CDT MAGNESIUM BLOOD Routine 05/17/2025 10:12 PM CDT XR CHEST 1VW PORTABLE STAT 05/17/2025 7:17 PM CDT Other shock (HCC) SVO2 FOR RECALIBRATION STAT 05/17/2025 6:23 PM CDT CBC W/O DIFFERENTIAL STAT 05/17/2025 6:23 PM CDT BLOOD GASES ART + COOX PANEL STAT 05/17/2025 6:23 PM CDT LACTIC ACID BLOOD STAT 05/17/2025 6:2 3 PM CDT EKG 12-LEAD STAT 05/17/2025 6:14 PM CDT Other shock (HCC) GLUCOSE - POINT OF CARE Routine 05/17/2025 5:57 PM CDT PHOSPHORUS BLOOD Routine 05/17/2025 5:51 PM CDT Hyponatremia COMPREHENSIVE METABOLIC PANEL Timed 05/17/2025 5:51 PM CDT LACTIC ACID BLOOD Routine 05/17/2025 5:5 1 PM CDT Acute kidney injury History of endocarditis MAGNESIUM BLOOD Routine 05/17/2025 5:51 PM CDT LACTIC ACID BLOOD Routine 05/17/2025 2:4 0 PM CDT Acute kidney injury History of endocarditis MRSA PCR STAT 05/17/2025 2:40 PM CDT CULTURE BLOOD Timed 05/17/2025 2:40 PM CDT URINALYSIS REFLEX MICROSCOPIC REFLEX CULTURE Routine 05/17/2025 [...] PORTABLE STAT 05/17/2025 3:47 AM CDT Hyponatremia LACTIC ACID BLOOD Routine 05/17/2025 3:1 1 AM CDT Acute kidney injury History of endocarditis RENAL FUNCTION PANEL Routine 05/17/2025 3:11 AM CDT Hyponatremia SODIUM BLOOD Timed 05/17/2025 3:11 AM CDT Hyponatremia OSMOLALITY BLOOD MARCIA 05/17/2025 3:11 AM CDT MAGNESIUM BLOOD Routine 05/17/2025 3:11 AM CDT CBC W AUTO DIFFERENTIAL AM Draw 05/17/2025 3:11 AM CDT GLUCOSE - POINT OF CARE Routine 05/17/2025 12:09 AM CDT LACTIC ACID BLOOD Routine 05/17/2025 12: 05 AM CDT Acute kidney injury History of endocarditis MAGNESIUM BLOOD Routine 05/16/2025 9:39 PM CDT RENAL FUNCTION PANEL Routine 05/16/2025 9:39 PM CDT GLUCOSE - POINT OF CARE Routine 05/16/2025 9:03 PM CDT MAGNESIUM BLOOD Routine 05/16/2025 5:50 PM CDT LACTIC ACID BLOOD Routine 05/16/2025 5:5 0 PM CDT RENAL FUNCTION PANEL Routine 05/16/2025 5:50 PM CDT GLUCOSE - POINT OF CARE Routine 05/16/2025 4:22 PM CDT CARDIAC EKG ORDER 05/16/2025 12: 07 PM CDT GLUCOSE - POINT OF CARE Routine 05/16/2025 11:53 AM CDT LACTIC ACID BLOOD STAT 05/16/2025 10: 47 AM CDT BASIC METABOLIC PANEL (CALCIUM TOTAL) Timed 05/16/2025 10:47 AM CDT POTASSIUM BLOOD Routine 05/16/2025 10:47 AM CDT GLUCOSE - POINT OF CARE [...] OF CARE Routine 05/16/2025 6:45 AM CDT POTASSIUM BLOOD Routine 05/16/2025 6:32 AM CDT HEMOGLOBIN A1C Routine 05/16/2025 6:32 AM CDT GLUCOSE - POINT OF CARE Routine 05/16/2025 5:25 AM CDT GLUCOSE - POINT OF CARE Routine 05/16/2025 4:57 AM CDT EKG 12-LEAD Routine 05/16/2025 4:07 AM CDT Shortness of breath GLUCOSE - POINT OF CARE Routine 05/16/2025 4:00 AM CDT UREA NITROGEN URINE RANDOM Routine 05/16/2025 12:17 AM CDT CREATININE URINE RANDOM Routine 05/16/2025 12:17 AM CDT OSMOLALITY URINE Routine 05/16/2025 12:1 7 AM CDT SODIUM URINE RANDOM Routine 05/16/2025 1 2:17 AM CDT URINALYSIS REFLEX TO MICROSCOPIC NO CULTURE Routine 05/16/2025 12:17 AM CDT GLUCOSE - POINT OF CARE Routine 05/15/2025 11:24 PM CDT COMPREHENSIVE METABOLIC PANEL AM Draw 05/15/2025 10:57 PM CDT CBC W AUTO DIFFERENTIAL AM Draw 05/15/2025 10:57 PM CDT MAGNESIUM BLOOD Timed 05/15/2025 10:57 PM CDT MAGNESIUM BLOOD Timed 05/15/2025 10:57 PM CDT RENAL FUNCTION PANEL Timed 05/15/2025 10:57 PM CDT BILIRUBIN TOTAL+DIRECT BLOOD PANEL STAT 05/15/2025 8:[address] CHEST PE W ABD PELVIS W CONT STAT 05/15/2025 7:52 PM CDT Shortness of breath GLUCOSE - POINT OF CARE Routine 05/15/2025 7:50 PM CDT TROPONIN-I HIGH SENSITIVE REFLEX 1HOUR Timed 05/15/2025 4:06 PM CDT MAGNESIUM BLOOD STAT 05/15/2025 4:06 PM CDT COMPREHENSIVE METABOLIC PANEL STAT 05/15/2025 4:06 PM CDT B-TYPE NATRIURETIC PEPTIDE STAT 05/15/2025 2:54 PM CDT PT-INR STAT 05/15/2025 2:54 PM CDT LIPASE BLOOD STAT 05/15/2025 2:54 PM CDT TROPONIN-I HIGH SENSITIVE BASELINE + 1HR STAT 05/15/2025 2:54 PM CDT CBC W AUTO DIFFERENTIAL STAT 05/15/2025 2:54 PM CDT XR CHEST 2VW STAT 05/15/2025 2:41 PM CDT Shortness of breath EKG 12-LEAD STAT 05/15/2025 2:20 PM CDT Shortness of breath from Last 3 Months Results * (ABNORMAL) GLUCOSE - POINT OF CARE (06/06/2025 11:18 AM CDT) Only the most recent of113 resultswithin the time period is included. Pathologist [facility] Glucose WB/POC 273(H) 70 - 99 mg/dL 06/06/2025 11:22 AM CDT [facility] Specimen Type Arterial/C apillary 06/06/2025 11:22 AM T [facility] Blood BLOOD SPECIMEN / Unknown 06/06/2025 11:18 AM CDT 06/06/2025 11:22 AM CDT Jennifer Burton MD LAB - POINT OF CARE ORDERABLES Final Result [facility] [address] [place] [address], [facility] [phone] * (ABNORMAL) CBC W/O DIFFERENTIAL (06/06/2025 5:19 AM CDT) Only the most recent of18 resultswithin the time period is included. [facility] WBC 3.7(L) 4.0 - 10.7 x10E9/L 06/06/2025 6:40 AM [facility] RBC Count 3.90 3.90 - 5.20 x10E12/L 06/06/2025 6:40 AM [facility] Hemoglobin 13.6 11.9 - 15.8 g/dL 06/06/2025 6:40 AM [facility] Hematocrit 40.3 34.8 - 46.1 % 06/06/2025 6:40 AM [facility] MCV 103.3(H) 80.0 - 98.0 fL 06/06/2025 6:40 AM [facility] MCH 34.9(H) 26.7 - 33.6 pg 06/06/2025 6:40 AM [facility] MCHC 33.7 31.7 - 36.3 g/dL 06/06/2025 6:40 AM [facility] RDW-CV 16.0(H) 11.3 - 14.8 % 06/06/2025 6:40 AM [facility] Platelet Count 254 150 - 420 x10E9/L 06/06/2025 6:40 AM [facility] MPV 10.0 7.8 - 11.4 fL 06/06/2025 6:40 AM [facility] Blood BLOOD SPECIMEN / Unknown Lab Venipuncture / Unknown 06/06/2025 5:19 AM CDT 06/06/2025 6:30 AM CDT us Jefry Arizmendi MD LAB - HEMATOLOGY ORDERABLES Fi nal Result [facility] [address] [place] [address], [facility] [phone] * (ABNORMAL) COMPREHENSIVE METABOLIC PANEL (06/06/2025 5:19 AM CDT) Only the most recent of16 resultswithin the time period is included. BUN 19 7 - 26 mg/dL 06/06/2025 6:52 AM [facility] Creatinine 0.70 0.56 - 0.96 mg/dL 06/06/2025 6:52 AM [facility] Sodium 133(L) 136 - 145 mmol/L 06/06/2025 6:52 AM [facility] Potassium 4.5 3.5 - 4.5 mmol/L 06/06/2025 6:52 AM [facility] Chloride 104 98 - 107 mmol/L 06/06/2025 6:52 AM [facility] CO2 25 22 - 29 mmol/L 06/06/2025 6:52 AM [facility] Glucose 115(H) 70 - 99 mg/dL 06/06/2025 6:52 AM [facility] Calcium 8.6 8.4 - 10.2 mg/dL 06/06/2025 6:52 AM [facility] Protein Total 6.1 6.0 - 8.3 g/dL 06/06/2025 6:52 AM [facility] Albumin 2.3(L) 3.4 - 5.0 g/dL 06/06/2025 6:52 AM [facility] Bilirubin Total 2.8(H) 0.2 - 1.2 mg/dL 06/06/2025 6:52 AM [facility] Alkaline Phosphatase 298(H) 40 - 150 U/L 06/06/2025 6:52 AM [facility] ALT 24 5 - 55 U/L 06/06/2025 6:52 AM [facility] AST 41(H) 5 - 34 U/L 06/06/2025 6:52 AM [facility] Anion Gap 4(L) 6 - 16 06/06/2025 6:52 AM [facility] BUN/Creatinine Ratio 27(H) 7 - 23 06/06/2025 6:52 AM [facility] Osmolality Calculated 279 275 - 295 mOsm/kg 06/06/2025 6:52 AM [facility] Albumin/Globulin Ratio 0.6(L) 1.1 - 2.3 06/06/2025 6:52 AM [facility] eGFR by CKD-EPI >90 >=90 mL/min/1.7 3 m2 06/06/2025 6:52 AM [facility] Comment:Estimated Glomerular Filtration Rate (eGFR) calculated using the CKD-EPI Creatinine Equation (2020), per the [employer] and [place] [employer] recommendations. Blood BLOOD SPECIMEN / Unknown Lab Venipuncture / Unknown 06/06/2025 5:19 AM CDT 06/06/2025 6:29 AM CDT us Lyndon Fishman MD LAB - CHEMISTRY ORDERABLES F inal Result [facility] [address] [place] [id number], [facility] [phone] * PHOSPHORUS BLOOD (06/06/2025 5:19 AM CDT) Only the most recent of11 resultswithin the time period is included. Phosphorus 3.5 2.9 - 5.1 mg/dL 06/06/2025 6:52 AM CDT [facility] Blood BLOOD SPECIMEN / Unknown Lab Venipuncture / Unknown 06/06/2025 5:19 AM CDT 06/06/2025 6:29 AM CDT us Lyndon Fishman MD LAB - CHEMISTRY ORDERABLES F inal Result [address] [address], [facility] [phone] * MAGNESIUM BLOOD (06/06/2025 5:19 AM CDT) Only the most recent of42 resultswithin the time period is included. Magnesium 1.9 1.6 - 2.6 mg/dL 06/06/2025 6:52 AM CDT [facility] Blood BLOOD SPECIMEN / Unknown Lab Venipuncture / Unknown 06/06/2025 5:19 AM CDT 06/06/2025 6:29 AM CDT us Jefry Arizmendi MD LAB - CHEMISTRY ORDERABLES Fin al Result Performing Organization Address City/[facility]/ZIP Co de Phone Number [address] [address], [facility] [phone] * FOLATE (05/30/2025 7:00 PM CDT) Folate 17.7 7.0 - 31.4 ng/mL 05/30/2025 9:47 PM CDT [facility] Blood BLOOD SPECIMEN / Unknown Lab Venipuncture / Unknown 05/30/2025 7:00 PM CDT 05/30/2025 8:44 PM CDT Mariah Yadav MD LAB - CHEMISTRY ORDERABLES Final Result Performing Organization Address City/[facility]/ZIP Co de Phone Number [address] [address], [facility] [phone] * (ABNORMAL) VITAMIN B12 (05/30/2025 3:05 AM CDT) Pathologist [facility] Vitamin B12 1,455(H) 213 - 816 pg/mL 05/30/2025 9:57 AM CDT [facility] Blood BLOOD SPECIMEN / Unknown Lab Venipuncture / Unknown 05/30/2025 3:05 AM CDT 05/30/2025 4:14 AM CDT Mariah Yadav MD LAB - CHEMISTRY ORDERABLES Final Result [facility] [address] [place] [address], [facility] [phone] * ECHO COMPLETE W CONTRAST (05/28/2025 9:26 AM CDT) Only the most recent of2 resultswithin the time period is included. [facility] AV area index 1.008 cm /m SSM [...] mmHg SSM CV FUJI PACS LVOT pk chadd 75.213 cm/s SSM CV F UJI PACS LVOT VTI 11.613 cm SSM CV FUJ I PACS RV-mark basal diam 4.917 cm SSM CV FUJI PACS RVIDd 4.969 cm SSM CV FUJ I PACS RVOT diam Doppler 3.206 cm SS M CV FUJI PACS RVOT pk chadd 60.526 cm/s SSM CV F UJI PACS RVOT VTI 9.109 cm SSM CV FUJ I PACS LA size 4.617 cm SSM CV FUJ I PACS RA area 30.984 cm SSM CV FUJI PACS AV area pk chadd 2.647 cm SSM CV FUJI PACS AV area cont VTI 2.264 cm SSM CV FUJI PACS AV pk grad 5.149 mmHg SSM CV FU JI PACS AV mn grad 3.182 mmHg SSM CV FU JI PACS AV pk chadd 113.459 cm/s SSM CV FUJ I PACS AV VTI 20.488 cm SSM CV FUJ I PACS MV E' lateral chadd 3.018 cm/s SS M CV FUJI PACS MV pk chadd regurg 372.598 cm/s SSM CV FUJI PACS IA VTI 63.389 cm SSM CV FUJ I PACS PV pk chadd 72.272 cm/s SSM CV FUJ I PACS PV VTI 12.497 cm SSM CV FUJ I PACS TAPSE 1.784 cm SSM CV FUJ I PACS TR pk chadd 230.1 cm/s SSM CV FUJ I PACS [...] 8:36 AM Patient Status: I/P Study Site: [facility] Primary Location: [facility] EStud Info Technical Quality: Adequate Exam Type: ECHO [...] Attending Physician: Jefry Arizmendi Fellow: Buster Lima Ground In[employer] Basic: Stuart Caldwell Left Ventricle The left ventricle [...] VTI) 2.62 cm2/m2 PV Area (Cont Eq Chadd) 6.8 cm2 PV Area Index (Cont Eq Chadd) 3.01 cm2/m2 PV Regurgitation Doppler IA End Diastolic Gradient 10 mmHg Mitral Valve [...] Artery Doppler PA End Diastolic Pressure for IA 25 mmHg Aorta Name Value Normal Ascending [...] 2.26 cm2 >=2.00 AV Area (Cont Eq Chadd) 2.65 cm2 AV DI (VTI) 0.57 AV DI (Chadd) 0.66 AV Regurgitation 2D LVOT Area 3.99 [...] 8:36 AM Patient Status: I/P Study Site: [facility] Primary Location: [facility] Info Technical Quality: Adequate Exam Type: ECHO [...] Attending Physician: Jefry Arizmendi Fellow: Buster Lima Ground Instructor Basic: Stuart Caldwell Left Ventricle The left ventricle [...] VTI) 2.62 cm2/m2 PV Area (Cont Eq Chadd) 6.8 cm2 PV Area Index (Cont Eq Chadd) 3.01 cm2/m2 PV Regurgitation Doppler IA End Diastolic Gradient 10 mmHg Mitral Valve [...] Artery Doppler PA End Diastolic Pressure for IA 25 mmHg Aorta Name Value Normal Ascending [...] 2.26 cm2 >=2.00 AV Area (Cont Eq Chadd) 2.65 cm2 AV DI (VTI) 0.57 AV DI (Chadd) 0.66 AV Regurgitation 2D LVOT Area 3.99 [...] MD ECHO CUPID Final Result * (ABNORMAL) RENAL FUNCTION PANEL (05/28/2025 6:34 AM CDT) Only the most recent of31 resultswithin the time period is included. BUN 35(H) 7 - 26 mg/dL 05/28/2025 7:18 AM [facility] Creatinine 0.83 0.56 - 0.96 mg/dL 05/28/2025 7:18 AM [facility] Sodium 142 136 - 145 mmol/L 05/28/2025 7:18 AM [facility] Potassium 4.1 3.5 - 4.5 mmol/L 05/28/2025 7:18 AM [facility] Chloride 102 98 - 107 mmol/L 05/28/2025 7:18 AM [facility] CO2 34(H) 22 - 29 mmol/L 05/28/2025 7:18 AM [facility] Glucose 165(H) 70 - 99 mg/dL 05/28/2025 7:18 AM [facility] Albumin 2.2(L) 3.4 - 5.0 g/dL 05/28/2025 7:18 AM [facility] Calcium 9.8 8.4 - 10.2 mg/dL 05/28/2025 7:18 AM [facility] Phosphorus 4.6 2.9 - 5.1 mg/dL 05/28/2025 7:18 AM [facility] Anion Gap 6 6 - 16 05/28/2025 7:18 AM [facility] BUN/Creatinine Ratio 42(H) 7 - 23 05/28/2025 7:18 AM [facility] Osmolality Calculated 306(H) 275 - 295 mOsm/kg 05/28/2025 7:18 AM [facility] eGFR by CKD-EPI 79(L) >=90 mL/min/1.7 3 m2 05/28/2025 7:18 AM [facility] Comment:Estimated Glomerular Filtration Rate (eGFR) calculated using the CKD-EPI Creatinine Equation (2020), per the [employer] and [place] [employer] recommendations. Blood BLOOD SPECIMEN / Unknown Lab Venipuncture / Unknown 05/28/2025 6:34 AM CDT 05/28/2025 6:46 AM CDT us Lyndon Fishman MD LAB - CHEMISTRY ORDERABLES F inal Result Performing Organization Address City/State/[facility] Co de Phone Number [facility] [address] [place] [phone], [facility] [phone] * SARS-COV-2 (COVID-19) RAPID (05/27/2025 2:39 PM CDT) COVID-19 PCR Not detected Not detected 05/27/20 3:18 PM CDT [facility] Microbiology SPECIMEN FROM NASOPHARYNGEAL STRUCTURE / Unknown Collection / Unknown 05/27/2025 2:39 PM CDT 05/27/2025 2:44 PM CDT Narrative [facility] - 05/27/2025 3:18 PM CDT The [employer]ep[employer] Xpert Xpress SARS-COV-2 has been authorized by [...] LAB - MICROBIOLOGY ORDERABLE S Final Result [facility] [address] [place] [phone], [facility] [phone] * XR Abdomen Kub Portable (05/25/2025 9:00 PM CDT) Only the most recent of4 resultswithin the time period is included. Anatomical Region Laterality Modality Abdomen Digital Radiogra phy 05/25/2025 9:09 PM CDT Narrative 05/26/2025 2:33 AM CDT PROCEDURE: XR ABDOMEN KUB PORTABLE, DATE/TIME OF EXAM: 05/25/2025 9:00 PM, LOCATION [facility] INDICATION: R57.8: Other shock (HCC) ADDITIONAL CLINICAL INFORMATION: Ordering Provider Reason For Exam: NG placement COMPARISON: CT abdomen pelvis dated 05/15/2025 and abdominal radiograph dated 05/23/2025. FINDINGS/IMPRESSION: Enteric tube courses below the diaphragm with the distal tip superimposing the distal fundus region. Report dictated by Sven Flores MD, (Integrated VIR resident). > Dictated by Flight Crew Scheduler I, Jimbo Elmore MD have personally reviewed and interpreted this examination/study. > Interpreting Provider: Jimbo Elmore MD on 05/26/2025 2:33 AM Procedure Note Jimbo Elmore MD - 05/26/2025 PROCEDURE: XR ABDOMEN KUB PORTABLE, DATE/TIME OF EXAM: 05/25/2025 9:00PM, LOCATION [facility] INDICATION: R57.8: Other shock (HCC) ADDITIONAL CLINICAL INFORMATION: Ordering Provider Reason For Exam: NG placement COMPARISON: CT abdomen pelvis dated 05/15/2025 and abdominal radiographdated 05/23/2025. FINDINGS/IMPRESSION: Enteric tube courses below the diaphragm with the distal tipsuperimposing the distal fundus region. Report dictated by Sven Flores MD, (Integrated VIR resident). > Dictated by Flight Crew Scheduler I, Jimbo Elmore MD have personally reviewed and interpreted this examination/study. > Interpreting Provider: Jimbo Elmore MD on 05/26/2025 2:33 AM Jefry Arizmendi MD DIAGNOSTIC IMAGING ORDERABLES Final Result * XR Chest 1Vw Portable (05/23/2025 9:07 AM CDT) Only the most recent of5 resultswithin the time period is included. Anatomical Region Laterality Modality Chest Digital Radiogra [...] in the presence of Shania Patel MD, (student affairs vice president). > Interpreting Provider: Ann-Marie Campa [...] MD, in the presence of Shania Patel MD,(student affairs vice president). > Interpreting Provider: Ann-Marie Campa MD on 05/23/2025 9:32 AM Jefry Arizmendi MD DIAGNOSTIC IMAGING ORDERABLES Final Result * (ABNORMAL) BLOOD GASES ART + COOX PANEL (05/22/2025 5:54 AM T) Only the most recent of20 resultswithin the time period is included. pH Arterial 7.45 7.35 - 7.45 pH 05/22/2025 6:02 AM [facility] pO2 Arterial 85 80 - 100 mmHg 05/22/2025 6:02 AM [facility] pCO2 Arterial 46(H) 35 - 45 mmHg 6:02 AM [facility] HCO3 Arterial 32.0(H) 20.0 - 30.0 mmol/L 05/22/2025 6:02 AM [facility] BE Arterial 6.9(H) -2.0 - 2.0 mmol/L 05/22/2025 6:02 AM [facility] Oxyhemoglobin Arterial 94.8 % 05/22/2025 6:02 AM [facility] Dexoyhemoglobin (HHB) % 2.2 % 05/22/2025 6:02 AM [facility] Methemoglobin <0.8 0.0 - 2.0 % 05/22/2025 6:02 AM [facility] Carboxyhemoglobin 2.3(H) 0.0 - 2.0 % 2024 6:02 AM [facility] O2 Content Arterial 19.0 Interpret within clinical context ml/dL 05/22/2025 6:02 AM [facility] Hemoglobin by COOX 14.2 12.0 - 15.6 g/dL 05/22/2025 6:02 AM [facility] O2 Saturation Arterial 98 90 - 100 % 05/22/2025 6:02 AM [facility] FI O2 Arterial 40.0 % 05/22/2025 6:02 AM [facility] Blood, arterial ARTERIAL BLOOD SPECIMEN / Unknown Arterial Puncture / Unknown 05/22/2025 5:54 AM T 05/22/2025 5:58 AM [facility] - 05/22/2025 6:02 AM [facility] Carboxyhemoglobin Normal Concentration: Non-smokers: 0-2%; Smokers: 0-9%; Toxic: >20% us Gonzalo Reeves [employer] - BLOOD GASES ORDERABL ES Final Result [facility] [address] [place] [address], [facility] [phone] * (ABNORMAL) BLOOD GASES GATO + COOX PANEL (05/21/2025 7:05 PM [facility]) Only the most recent of9 resultswithin the time period is included. pH Venous 7.52(H) 7.32 - 7.42 pH 05/21/2025 7:19 PM [facility] pO2 Venous 83(H) 35 - 40 mmHg 05/21/2025 7:19 PM [facility] pCO2 Venous 34(L) 40 - 50 mmHg 05/21/2025 7:19 PM [facility] HCO3 Venous 27.8 20 - 30 mmol/L 05/21/2025 7:19 PM [facility] Base Excess Venous 5.1(H) -2.0 - 2.0 mmol/L 05/21/2025 7:19 PM [facility] Oxyhemoglobin Venous 95.4 % 05/10 7:19 PM [facility] Deoxyhemoglobin (HHB) Venous % 1.1 % 05/21/2025 7:19 PM [facility] Methemoglobin <0.8 0.0 - 2.0 % 05/21/2025 7:19 PM [facility] Carboxyhemoglobin 3.1(H) 0.0 - 2.0 % 2024 7:19 PM [facility] O2 Content Venous 17.9 Interpret within clinical context ml/dL 05/21/2025 7:19 PM [facility] Hemoglobin by COOX 13.3 12.0 - 15.6 g/dL 05/21/2025 7:19 PM [facility] O2 Saturation Venous 99 >=70 % 05/10 7:19 PM [facility] FI O2 Mixed Venous 30.0 % 2024 7:19 PM [facility] Blood BLOOD SPECIMEN / Unknown Venipuncture / Unknown 05/21/2025 7:05 PM CDT 05/21/2025 7:09 PM [facility] Narrative [facility] - 05/21/2025 7:19 PM [facility] Carboxyhemoglobin Normal Concentration: Non-smokers: 0-2%; Smokers: 0-9%; Toxic: >20% us Jefry Arizmendi MD LAB - BLOOD GASES ORDERABLES F inal Result [facility] [address] [place] [address], [facility] [phone] * LACTIC ACID BLOOD (05/21/2025 7:05 PM T) Only the most recent of27 resultswithin the time period is included. Pathologist [facility] Lactic Acid-Stat 1.5 <=2.0 mmol/L 05/21/2025 8:01 PM [facility] Blood BLOOD SPECIMEN / Unknown Venipuncture / Unknown 05/21/2025 7:05 PM CDT 05/21/2025 7:09 PM CDT us Jefry Arizmendi MD LAB - CHEMISTRY ORDERABLES Fin al Result [facility] [address] [place] [address], [facility] [phone] * (ABNORMAL) CBC W AUTO DIFFERENTIAL (05/21/2025 3:29 AM CDT) Only the most recent of7 resultswithin the time period is included. [facility] WBC 9.1 4.0 - 10.7 x10E9/L 05/21/2025 3:51 AM [facility] RBC Count 4.21 3.90 - 5.20 x10E12/L 05/21/2025 3:51 AM [facility] Hemoglobin 13.8 11.9 - 15.8 g/dL 05/21/2025 3:51 AM [facility] Hematocrit 40.2 34.8 - 46.1 % 05/21/2025 3:51 AM [facility] MCV 95.5 80.0 - 98.0 fL 05/21/2025 3:51 AM [facility] MCH 32.8 26.7 - 33.6 pg 05/21/2025 3:51 AM [facility] MCHC 34.3 31.7 - 36.3 g/dL 05/21/2025 3:51 AM [facility] RDW-CV 17.9(H) 11.3 - 14.8 % 05/21/2025 3:51 AM [facility] Platelet Count 149(L) 150 - 420 x10E9/L 05/21/2025 3:51 AM [facility] MPV 9.3 7.8 - 11.4 fL 05/21/2025 3:51 AM [facility] Neutrophil % 79.1(H) 41.0 - 74.0 % 05/21/2025 3:51 AM [facility] Lymphocyte % 5.0(L) 17.0 - 47.0 % 05/21/2025 3:51 AM [facility] Monocyte % 13.5(H) 3.0 - 11.0 % 05/21/2025 3:51 AM [facility] Eosinophil % 1.0 0.0 - 7.0 % 05/21/2025 3:51 AM [facility] Basophil % 0.8 0.0 - 1.6 % 05/21/2025 3:51 AM [facility] Immature Granulocytes % 0.6 0.0 - 1.0 % 05/21/2025 3:51 AM [facility] Neutrophil Absolute 7.19 1.60 - 7.50 x10E9/L 05/21/2025 3:51 AM [facility] Lymphocyte Absolute 0.45(L) 1.00 - 4.40 x10E9/L 05/21/2025 3:51 AM [facility] Monocyte Absolute 1.22(H) 0.15 - 1.00 x10E9/L 05/21/2025 3:51 AM [facility] Eosinophil Absolute 0.09 0.00 - 0.60 x10E9/L 05/21/2025 3:51 AM [facility] Basophil Absolute 0.07 0.00 - 0.13 x10E9/L 05/21/2025 3:51 AM [facility] Blood BLOOD SPECIMEN / Unknown Venipuncture / Unknown 05/21/2025 3:29 AM CDT 05/21/2025 3:40 AM CDT us Carline Darby DO LAB - HEMATOLOGY ORDERABLES Ayanna l Result [facility] [address] [place] [address], [facility] [phone] * CT Head Wo Contrast (05/20/2025 6:18 PM CDT) Only the most recent of2 resultswithin the time period is included. Anatomical Region Laterality Modality Head Computed Tomogra [...] Tripp Pablo MD on 05/20/2025 6:46 PM us Linda Lezama MD CT ORDERABLES Final Result * ECHO CHANCE COMPLETE (05/20/2025 10:14 AM CDT) LV A4C EF 59.636 % SSM CV FUJ I PACS LV EDV A4C 84.774 ml SSM CV FU JI PACS LV ESV A4C 34.219 ml SSM CV FU JI PACS AV area pk chadd 2.961 cm SSM CV FUJI PACS AV area cont VTI 2.688 cm SSM CV FUJI PACS AV area index 1.165 cm /m SSM CV FUJI PACS Dimensionless Index 0.63 unitless SSM CV FUJI PACS LVOT diam 2.33 cm SSM CV FUJ I PACS LVOT VTI 11.495 cm SSM CV FUJ I PACS LVOT pk chadd 79.938 cm/s SSM CV F UJI PACS AV pk chadd 115.13 cm/s SSM CV FUJ I PACS AV VTI 18.234 cm SSM CV FUJ I PACS TR pk chadd 324.678 cm/s SSM CV FUJ I PACS [...] 2:28 PM Patient Status: I/P Study Site: [facility] Primary Location: [facility] EStudy Info Technical Quality: Good Exam Type: [...] Attending Physician: Linda Lezama Fellow: Bridgett Silverio Ground Instructor Basic: Jamila Robison Performing Physician: Linda Lezama Ground Instructor Basic: Bridgett Silverio Complications * There were no [...] 2.69 cm2 >=2.00 AV Area (Cont Eq Chadd) 2.96 cm2 AV DI (VTI) 0.63 AV DI (Chadd) 0.69 AV Regurgitation 2D LVOT Area 4.26 [...] fibrillation. On average, the function is moderately ywoixru25-90% by visual estimate. * Spontaneous echo contrast [...] 2:28 PM Patient Status: I/P Study Site: [facility] Primary Location: [facility] EStudy Info Technical Quality: Good Exam Type: [...] Attending Physician: Linda Lezama Fellow: Bridgett Silverio Ground Instructor Basic: Jmaila Robison Performing Physician: Linda Lezama Ground Instructor Basic: Bridgett Silverio Complications * There were no [...] fibrillation. On average, the function is moderately -27% by visual estimate. Right Ventricle The right [...] 2.69 cm2 >=2.00 AV Area (Cont Eq Chadd) 2.96 cm2 AV DI (VTI) 0.63 AV DI (Chadd) 0.69 AV Regurgitation 2D LVOT Area 4.26 [...] * EKG 12-Lead (05/20/2025 9:26 AM CDT) Only the most recent of5 resultswithin the time period is included. Ventricular Rate 125 BPM [facility] MUSE QRS Duration ms 116 ms [facility] MUSE Q-T Interval ms 338 ms [facility] MUSE QTC Calculation (Bezet) 487 ms [facility] MUSE Calculated R [place] 100 degrees [facility] MUSE Calculated T [place] -84 degrees [facility] MUSE Interpretation EKG ATRIAL FIBRILLATION WITH RAPID VENTRICULAR RESPONSE LOW VOLTAGE QRS ANTEROLATERAL INFARCT , AGE UNDETERMINED ABNORMAL ECG WHEN COMPARED WITH ECG OF 20-MAY-2025 09:25 NO SIGNIFICANT CHANGE WAS FOUND Confirmed by DAREK PARADA MD ([id number]) on 05/21/2025 8:38:24 AM [facility] 05/20/2025 9:26 AM CDT 05/21/2025 8:38 AM CDT Linda Lezama MD ECG ORDERABLES Edited Resul t - Final Performing Organization Address City/[facility]/ZIP Co de Phone Number [facility] MUSE * OSMOLALITY URINE (05/20/2025 3:42 AM CDT) Only the most recent of4 resultswithin the time period is included. Pathologist [facility] Osmolality Urine 444 50 - 1,200 mOsm/kg 05/20/2025 4:07 AM CDT [facility] Urine URINE SPECIMEN OBTAINED BY CLEAN CATCH PROCEDURE / Unknown Collection / Unknown 05/20/2025 3:42 AM CDT 05/20/2025 3:46 AM CDT Linda Lezama MD LAB - URINE CHEMISTRY ORDERA BLES Final Result [facility] [address] [place] [address], [place] [phone] * OSMOLALITY BLOOD (05/20/2025 3:06 AM CDT) Only the most recent of4 resultswithin the time period is included. Osmolality 295 275 - 295 mOsm/kg 05/20/2025 4:07 AM CDT [facility] Blood BLOOD SPECIMEN / Unknown Venipuncture / Unknown 05/20/2025 3:06 AM CDT 05/20/2025 3:26 AM CDT Linda Lezama MD LAB - CHEMISTRY ORDERABLES F inal Result Performing Organization Address [facility]/ZIP Co de Phone Number [address] [address], [place] [phone] * CULTURE SPUTUM+GRAM STAIN (05/19/2025 4:20 PM CDT) Culture Light normal oropharyngeal alisa DEZ 05/21/2025 8:08 AM CDT [facility] Gram Stain Moderate Gram-negative bacilli 05/21/2025 8:08 AM CDT [facility] Gram Stain Moderate Gram-positive cocci 05/21/2025 8:08 AM CDT [facility] Gram Stain Light Yeast 05/21/2025 8:08 AM CDT [facility] Gram Stain >= 25 per low power field Polymorphonuclear cells 05/21/2025 8:08 AM CDT [facility] Gram Stain <10 per low power field Squamous epithelial cells 05/21/2025 8:08 AM CDT [facility] Microbiology SPUTUM / Unknown Collection / Unknown 05/19/2025 4:20 PM CDT 05/19/2025 4:26 PM CDT us Ha Hernandez MD LAB - MICROBIOLOGY ORDERABLES Fi nal Result Performing Organization Address City/[facility]/ZIP Co de Phone Number [facility] [address] [place] [address], [place] [phone] * DIGOXIN LEVEL (05/19/2025 10:21 AM CDT) [facility] Digoxin 0.8 0.5 - 1.2 ng/mL 05/19/2025 2:57 PM CDT [facility] Blood BLOOD SPECIMEN / Unknown Venipuncture / Unknown 05/19/2025 10:21 AM CDT 05/19/2025 10:25 AM CDT Narrative [facility] - 05/19/2025 2:57 PM CDT Therapeutic reference range for heart failure is 0.5-0.9 ng/mL. For atrial fibrillation, it is 0.8-1.2 ng/mL. The employment counselor of Digoxin [employer] has stated that no immunoassay technique is suitable for quantitating digoxin in plasma/serum from patients on antibody fragment therapy. Linda Lezama MD LAB - CHEMISTRY ORDERABLES F inal Result Performing Organization Address City/[facility]/ZIP Co de Phone Number [address] [address], [place] [phone] * TRIGLYCERIDES BLOOD (05/19/2025 4:00 AM CDT) [facility] Triglycerides 131 <150 mg/dL 05/19/2025 4:35 AM CDT [facility] Comment: ATP III Classification of Triglycerides: <150 mg/dL: Normal 150 - 199 mg/dL: Borderline High 200 - 400 mg/dL: High >500 mg/dL: Very High Blood BLOOD SPECIMEN / Unknown Venipuncture / Unknown 05/19/2025 4:00 AM CDT 05/19/2025 4:07 AM CDT Linda Lezama MD LAB - CHEMISTRY ORDERABLES F inal Result Performing Organization Address City/[facility]/ZIP Co de Phone Number [address] [address], [place] [phone] * (ABNORMAL) SVO2 FOR RECALIBRATION (05/18/2025 3:05 AM CDT) Only the most recent of3 resultswithin the time period is included. SVO2 for Recalibration 81.6(H) 66.0 - 77.0 % 05/18/2025 3:29 AM CDT [facility] Blood BLOOD SPECIMEN / Unknown Venipuncture / Unknown 05/18/2025 3:05 AM CDT 05/18/2025 3:25 AM CDT Linda Lezama MD LAB - CHEMISTRY ORDERABLES F inal Result Performing Organization Address City/[facility]/ZIP Co de Phone Number [address] [address], [place] [phone] * (ABNORMAL) BILIRUBIN DIRECT (05/18/2025 3:05 AM CDT) Bilirubin Conjugated 4.4(H) 0.1 - 0.5 mg/dL 05/18/2025 4:04 AM CDT [facility] Blood BLOOD SPECIMEN / Unknown Venipuncture / Unknown 05/18/2025 3:05 AM CDT 05/18/2025 3:31 AM CDT Linda Lezama MD LAB - CHEMISTRY ORDERABLES F inal Result Performing Organization Address [facility] Co de Phone Number [address] [address], [place] [phone] * MRSA PCR (05/17/2025 2:40 PM CDT) MRSA DNA by PCR Not detected Not detected 05/17/2025 9:06 PM CDT [facility] Microbiology SPECIMEN FROM NASAL FOSSAE / Unknown Collection / Unknown 05/17/2025 2:40 PM CDT 05/17/2025 2:48 PM CDT Narrative [facility] - 05/17/2025 9:06 PM CDT Methicillin-resistant Staphylococcus aureus (MRSA) DNA is not detected (presumed not colonized with MRSA). Linda Lezama MD LAB - MICROBIOLOGY ORDERABLE S Final Result [facility] [address] [place] [address], [facility] [phone] * CULTURE BLOOD (05/17/2025 2:40 PM CDT) Only the most recent of2 resultswithin the time period is included. Culture No growth day 5 DEZ 05/22/2025 7:31 PM CDT [facility] Blood PERIPHERAL BLOOD / Unknown Venipuncture / Unknown 05/17/2025 2:40 PM CDT 05/17/2025 2:48 PM CDT us Linda Lezama MD LAB - MICROBIOLOGY ORDERABLE S Final Result [facility] [address] [place] [address], [facility] [phone] * URINALYSIS REFLEX MICROSCOPIC REFLEX CULTURE (05/17/2025 2:39 PM CDT) Color UA Yellow Yellow, Straw 05/17/2025 3:12 PM CDT [facility] Clarity UA Clear Clear 05/17/2025 3:12 PM CDT [facility] Glucose UA Normal Normal 05/17/2025 3:12 PM CDT [facility] Bilirubin UA Negative Negative 05/17/2025 3:12 PM CDT [facility] Ketone UA Negative Negative 05/17/2025 3:12 PM CDT [facility] Specific Melvin UA 1.006 1.005 - 1.030 05/17/2025 3:12 PM CDT [facility] Blood UA Negative Negative 05/17/2025 3:12 PM CDT [facility] pH UA 7.0 5.0 - 8.0 05/17/2025 3:12 PM CDT [facility] Protein UA Negative Negative 05/17/2025 3:12 PM CDT [facility] Urobilinogen UA Normal Normal mg/dL 05/17/2025 3:12 PM CDT [facility] Nitrite UA Negative Negative 05/17/2025 3:12 PM CDT [facility] Leukocyte Esterase UA Negative Negative 05/17/2025 3:12 PM CDT [facility] Reflex Status Culture not indicated 05/17/2025 3:12 PM CDT [facility] Urine Microscopy Urine microscopy not indicated 05/17/2025 3:12 PM CDT [facility] Urine URINE SPECIMEN OBTAINED BY SINGLE CATHETERIZATION OF URINARY BLADDER / Unknown Collection / Unknown 05/17/2025 2:39 PM CDT 05/17/2025 2:47 PM CDT us Linda Lezama MD LAB - URINALYSIS ORDERABLES Final Result [facility] [address] [place] [address], [facility] [phone] * US Abdomen Ltd W Comp Doppler [...] post cholecystectomy. > Dictated by Grace Lawrence (student affairs vice president). > Dictated by Grace Lawrence 05/17/2025 2:55 PM > Dictated by Flight Crew Scheduler IKenney have personally reviewed and interpreted this [...] post cholecystectomy. > Dictated by Grace Lawrence (student affairs vice president). > Dictated by Grace Lawrence 05/17/2025 2:55 PM > Dictated by Flight Crew Scheduler IKenney have personally reviewed and interpreted this examination/study. > Interpreting Provider: Kenney Storm on 05/17/2025 4:13 PM us Linda Lezama MD US ORDERABLES Final Result * CARDIAC EKG ORDER (05/17/2025 1:06 PM CDT) Only the most recent of2 resultswithin the time period is included. Narrative 05/17/2025 1:06 PM CDT Ordered by an unspecified provider. us Scanned Document CARDIAC SERVICES ORDERABLES Fin al Result * (ABNORMAL) SODIUM BLOOD (05/17/2025 3:11 AM CDT) Sodium 123(LL) 136 - 145 mmol/L 05/17/2025 4:05 AM CDT [facility] Blood BLOOD SPECIMEN / Unknown Venipuncture / Unknown 05/17/2025 3:11 AM CDT 05/17/2025 3:21 AM CDT us Linda Lezama MD LAB - CHEMISTRY ORDERABLES F inal Result [facility] [address] [place] [address] [phone] * (ABNORMAL) BASIC METABOLIC PANEL (CALCIUM TOTAL) (05/16/2025 10:47 AM CDT) BUN 29(H) 7 - 26 mg/dL 05/16/2025 11:45 AM [facility] Creatinine 1.39(H) 0.56 - 0.96 mg/dL 05/16/2025 11:45 AM [facility] Sodium 123(LL) 136 - 145 mmol/L 05/16/2025 11:45 AM [facility] Potassium 5.3(H) 3.5 - 4.5 mmol/L 05/16/2025 11:45 AM [facility] Chloride 87(L) 98 - 107 mmol/L 05/16/2025 11:45 AM [facility] CO2 25 22 - 29 mmol/L 05/16/2025 11:45 AM [facility] Glucose 113(H) 70 - 99 mg/dL 05/16/2025 11:45 AM [facility] Calcium 9.7 8.4 - 10.2 mg/dL 05/16/2025 11:45 AM [facility] Anion Gap 11 6 - 16 05/16/2025 11:45 AM [facility] BUN/Creatinine Ratio 21 7 - 23 05/16/2025 11:45 AM [facility] Osmolality Calculated 263(L) 275 - 295 mOsm/kg 05/16/2025 11:45 AM [facility] eGFR by CKD-EPI 43(L) >=90 mL/min/1.7 3 m2 05/16/2025 11:45 AM [facility] Comment:Estimated Glomerular Filtration Rate (eGFR) calculated using the CKD-EPI Creatinine Equation (2020), per the National Kid[employer] Foundation and [place] [employer] recommendations. Blood BLOOD SPECIMEN / Unknown Lab Venipuncture / Unknown 05/16/2025 10:47 AM CDT 05/16/2025 11:03 AM T us Adryan Shabazz MD LAB - CHEMISTRY ORDERABLES Final Result [address] [address], [facility] [phone] * (ABNORMAL) POTASSIUM BLOOD (05/16/2025 10:47 AM CDT) Only the most recent of3 resultswithin the time period is included. Potassium 5.3(H) 3.5 - 4.5 mmol/L 05/16/2025 11:44 AM CDT [facility] Blood BLOOD SPECIMEN / Unknown Lab Venipuncture / Unknown 05/16/2025 10:47 AM CDT 05/16/2025 11:03 AM CDT Dionne Benitez MD LAB - CHEMISTRY ORDERAB LES Final Result [address] [address], [facility] [phone] * (ABNORMAL) HEMOGLOBIN A1C (05/16/2025 6:32 AM CDT) Hemoglobin A1c 7.2(H) <=5.6 % 05/16/2025 8:36 AM CDT [facility] Estimated Average Glucose 160 mg/dL 05/16/2025 8:36 AM CDT [facility] Comment: HbA1c Interpretation: Normal : < 5.7% Pre-diabetes: 5.7-6.4% Diabetes: Equal to or greater than 6.5% Test results diagnostic of diabetes should be repeated for confirmation. Treatment target values recommended by ADA and other clinical organizations should be used to evaluate metabolic control in patients. Reference: [place] [employer], Standards of Care in Diabetes -2020 In patients 70 years and older consider HbA1c target range of 7.0-7.5% (Reference: Garcia Arevalo et al. JAMDA. 2012) The [place] assay for the measurement of HbA1c is a National Glycohemoglobin Standardization Program (NGSP) certified method. Blood BLOOD SPECIMEN / Unknown Lab Venipuncture / Unknown 05/16/2025 6:32 AM CDT 05/16/2025 6:55 AM CDT us Rohun Darby DO LAB - CHEMISTRY ORDERABLES Final Result [address] [address], [facility] [phone] * URINALYSIS REFLEX TO MICROSCOPIC NO CULTURE (05/16/2025 12:17 AM CDT) Color UA Yellow Yellow, Straw 05/16/2025 12:33 AM [facility] Clarity UA Clear Clear 05/16/2025 12:33 AM [facility] Glucose UA Normal Normal 05/16/2025 12:33 AM [facility] Bilirubin UA Negative Negative 05/16/2025 12:33 AM [facility] Ketone UA Negative Negative 05/16/2025 12:33 AM [facility] Specific Melvin UA 1.018 1.005 - 1.030 05/16/2025 12:33 AM [facility] Blood UA Negative Negative 05/16/2025 12:33 AM [facility] pH UA 5.0 5.0 - 8.0 05/16/2025 12:33 AM [facility] Protein UA Negative Negative 05/16/2025 12:33 AM [facility] Urobilinogen UA Normal Normal mg/dL 05/16/2025 12:33 AM [facility] Nitrite UA Negative Negative 05/16/2025 12:33 AM [facility] Leukocyte Esterase UA Negative Negative 05/16/2025 12:33 AM [facility] Urine Microscopy Urine microscopy not indicated 05/16/2025 12:33 AM [facility] Urine URINE SPECIMEN OBTAINED BY CLEAN CATCH PROCEDURE / Unknown Collection / Unknown 05/16/2025 12:17 AM CDT 05/16/2025 12:23 AM CDT us Carline Darby DO LAB - URINALYSIS ORDERABLES Ayanna l Result [address] [address], [facility] [phone] * SODIUM URINE RANDOM (05/16/2025 12:17 AM CDT) Sodium Urine 77 Not Established mmol/L 05/16/2025 12:46 AM CDT [facility] Urine URINE SPECIMEN OBTAINED BY CLEAN CATCH PROCEDURE / Unknown Collection / Unknown 05/16/2025 12:17 AM CDT 05/16/2025 12:23 AM CDT Carline Darby DO LAB - URINE CHEMISTRY ORDERABLES Final Result [address] [address], [place] [phone] * UREA NITROGEN URINE RANDOM (05/16/2025 12:17 AM CDT) Urea Nitrogen Random Urine 193 Not Established mg/dL 05/16/2025 12:46 AM CDT [facility] Urine URINE SPECIMEN OBTAINED BY CLEAN CATCH PROCEDURE / Unknown Collection / Unknown 05/16/2025 12:17 AM CDT 05/16/2025 12:23 AM CDT Carline Darby DO LAB - URINE CHEMISTRY ORDERABLES Final Result Performing Organization Address City/[facility]/ZIP Co de Phone Number [address] [address], [place] [phone] * CREATININE URINE RANDOM (05/16/2025 12:17 AM CDT) Creatinine Urine 23.02 Not Established mg/dL 05/16/2025 12:46 AM CDT [facility] Urine URINE SPECIMEN OBTAINED BY CLEAN CATCH PROCEDURE / Unknown Collection / Unknown 05/16/2025 12:17 AM CDT 05/16/2025 12:23 AM CDT Carline Darby DO LAB - URINE CHEMISTRY ORDERABLES Final Result Performing Organization Address City/[facility]/ZIP Co de Phone Number [address] [address], [place] [phone] * (ABNORMAL) BILIRUBIN TOTAL+DIRECT BLOOD PANEL (05/15/2025 8:20 PM CDT) Bilirubin Total 7.0(H) 0.2 - 1.2 mg/dL 0803/2025 8:51 PM CDT [facility] Bilirubin Conjugated 4.9(H) 0.1 - 0.5 mg/dL 05/15/2025 8:51 PM CDT [facility] Bilirubin Unconjugated 2.1 Unconjugated Bilirubin is a calculated value: Reference ranges have not been established. mg/dL 05/15/2025 8:51 PM CDT [facility] Blood BLOOD SPECIMEN / Unknown Venipuncture / Unknown 05/15/2025 8:20 PM CDT 05/15/2025 8:23 PM CDT us Juno Hernandez MD LAB - CHEMISTRY ORDERABLES Final Result Performing Organization Address City/State/[facility] Co de Phone Number [address] [address], [facility] [phone] * CT Chest Pe W Abd Pelvis [...] verification. > Dictated by Tom Dinh DO, (student affairs vice president). > Dictated by Flight Crew Scheduler I, Ann-Marie Campa MD have personally reviewed and interpreted this examination/study. > Interpreting Provider: Ann-Marie Campa MD on 05/15/2025 10:20 PM Narrative 05/15/2025 10:20 PM CDT PROCEDURE: CT CHEST PE W ABD PELVIS W CONT, DATE/TIME OF EXAM: 05/15/2025 7:52 PM, LOCATION [facility] INDICATION: R06.02: Shortness of breath Ordering [...] CONT, DATE/TIME OF EXAM:05/15/2025 7:52 PM, LOCATION [facility] INDICATION: R06.02: Shortness of breath Ordering [...] verification. > Dictated by Tom Dinh DO, (student affairs vice president). > Dictated by Flight Crew Scheduler I, Ann-Marie Campa MD have personally reviewed and interpreted this examination/study. > Interpreting Provider: Ann-Marie Campa MD on 05/15/2025 10:20 PM us Juno Hernandez MD CT ORDERABLES Final Resul t * (ABNORMAL) TROPONIN-I HIGH SENSITIVE REFLEX 1HOUR (05/15/2025 4:06 PM CDT) Troponin I High Sensitive 23(H) <=14 ng/L 05/15/2025 4:53 PM CDT [facility] Delta Troponin I HS <0 <6 ng/L 05/15/2025 4:53 PM CDT [facility] Blood BLOOD SPECIMEN / Unknown Venipuncture / Unknown 05/15/2025 4:06 PM CDT 05/15/2025 4:11 PM CDT Sweta Lnudy PA-C LAB - CHEMISTRY ORDERABLES Fi nal Result [address] [address], [place] [phone] * (ABNORMAL) TROPONIN-I HIGH SENSITIVE BASELINE + 1HR (05/15/2025 2:54 PM CDT) Troponin I High Sensitive 24(H) <=14 ng/L 05/15/2025 3:43 PM CDT [facility] Blood BLOOD SPECIMEN / Unknown Venipuncture / Unknown 05/15/2025 2:54 PM CDT 05/15/2025 3:00 PM CDT us Sweta Cognitive Codedavid PA-C LAB - CHEMISTRY ORDERABLES Fi nal Result [address] [address], [place] [phone] * (ABNORMAL) PT-INR (05/15/2025 2:54 PM CDT) PT 29.5(H) 12.1 - 14.8 Seconds 05/15/2025 3:49 PM CDT [facility] INR 2.9 See Comment 05/15/2025 3:49 PM CDT [facility] Comment:The suggested therap eutic range for standard coumadin (warfarin) therapy is an INR of 2.0-3.0. For high-risk patients (Mechanical Mitral Valve Prosthesis, etc.), the suggested prophylactic therapeutic range is an INR of 2.5-3.5. Blood BLOOD SPECIMEN / Unknown Venipuncture / Unknown 05/15/2025 2:54 PM CDT 05/15/2025 3:00 PM CDT Sweta Lundy PA-C LAB - COAGULATION ORDERABLES Final Result [facility] [address] [place] [address] [phone] * (ABNORMAL) B-TYPE NATRIURETIC PEPTIDE (05/15/2025 2:54 PM CDT) Pathologist [facility] BNP 2,209(H) <100 pg/mL 05/15/2025 3:43 PM CDT [facility] Comment: A decision threshold of 100 pg/mL [...] 2:54 PM CDT 05/15/2025 3:00 PM CDT [facility] LAB - CHEMISTRY ORDERABLES Fi nal Result Performing Organization Address City/[facility]/ZIP Co de Phone Number [address] [address], [place] [phone] * (ABNORMAL) LIPASE BLOOD (05/15/2025 2:54 PM CDT) Lipase 7(L) 8 - 78 U/L 05/15/2025 3:45 PM CDT [facility] Blood BLOOD SPECIMEN / Unknown Venipuncture / Unknown 05/15/2025 2:54 PM CDT 05/15/2025 3:00 PM CDT Narrative [facility] - 05/15/2025 3:45 PM CDT Lipase results from the [employer] analyzer may not be comparable with other methodologies. [employer] LAB - CHEMISTRY ORDERABLES nal Result Performing Organization Address [facility] Co de Phone Number [address] [address], [place] [phone] * XR CHEST 2VW (05/15/2025 2:41 PM [...] Felipe Munoz MD on 05/15/2025 3:03 PM Sweta Lundy PA-C DIAGNOSTIC IMAGING ORDERABLES Final Result from Last 3 Months Insurance [facility] MEDICAID - OUT OF STATE [facility] MEDICARE MANAGED CARE PLAN GENERIC MEDICARE ADV Member Subscriber Plan / Payer (Ef fective for All Dates) Name:Richa Pennn Yumiko Relation to Subscriber:Self Name:Loretta ePnn V Payer ID:Not on file Group ID:Not on file Type:Medicare-Managed Care Address: [address] [place] [phone] Advance Directives Documents on File Type Date Recorded Patient 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
--- OUTSIDE RECORDS SUMMARY | 2025-06-07 17:56 | XMS_ITS | Encounter Summary ---
Author Organization [facility] Address [address] [place] [address] Phone Care Team Providers Care Smelting Engineer Name Role Phone Oswaldo Serrano MD Primary Care Provider [phone] Angel Crowe DPCiara Unavailable [phone] Mora Fritz Unavailable Unavailable Ok Jorge MD Unavailable Orlin Urbina APRN, MANAGER QUANTITATIVE Unavailable [phone] Reason for Visit * Reason Comments Medication Refill Encounter Details Date Type Department Care Team (Late st Contact Info) Description 06/16/2022 [facility]ill [facility] - Family Medicine - [place] [address] [place] [address] Oswaldo Serrano MD #[address] [address] Medication Refill Social History Tobacco Use Types [...] 05/25/22 Office Visit Tom Quach MD [facility] 01/05/22 Office Visit Oswaldo Serrano MD [facility] Dhiraj Showing recent visits within past 182 [...] [facility] - Family Medicine - [place] [address] [facility] [place] [address] Oswaldo Serrano MD #[address] [place] [address] 07/22/2025 2:30 PM CDT Office Visit [facility] - Endocrinology - [place] #2 [place] [address] Ok Jorge MD #[address] [place] [address] 07/30/2025 2:45 PM CDT Office Visit [facility] UROLOGY #2 [place] [address] Orlin Urbina, FINANCIAL RECRUITER, MANAGER QUANTITATIVE [address] [place] [address] documented as of this encounter Visit Diagnoses Not on filedocumented in this encounter Additional Health Concerns Assessment Noted Time PHQ-9 Depression Total Score: 2 07/18/20 20 4:26 PM CDT documented as of this encounter Care Teams Smelting Engineer Relationship Specialty Start Date End Date Oswaldo Serrano MD #[address] [address] PCP - General Family Medicine 05/19/17 Angel Crowe DPM #[address] [address] Consulting Physician Podiatry 06/16/17 Mora Fritz [place] Behavioral Health Navigator 06/15/18 Ok Jorge MD #[address] [address] Consulting Physician Endocrinology 05/12/22 Orlin Urbina APRN, MANAGER QUANTITATIVE [address]2 [place] [address] Nurse Practitioner Advanced Practice Nurse 11/09/22 documented as of this encounter
--- OUTSIDE RECORDS SUMMARY | 2025-06-07 17:56 | XMS_ITS | Encounter Summary ---
Author Organization [facility] Address [address] [place] [address] Phone Care Team Providers Care Optometry Professor Name Role Phone Oswaldo Serrano MD Primary Care Provider [phone] Angel Crowe DPCiara Unavailable [phone] Mora Fritz Unavailable Unavailable Ok Jorge MD Unavailable Orlin Urbina APRN, ORDNANCE EQUIPMENT WORKER Unavailable [phone] Reason for Visit * Reason Comments Medication Refill Encounter Details Date Type Department Care Team (Late st Contact Info) Description 08/11/2022 Refill [facility] - Family Medicine - [place] [address] [place] [address] Oswaldo Serrano MD #[address] [address] Medication Refill Social History Tobacco Use Types [...] Dept 05/25/22 Office Visit Tom Quach MD [facility]aj 01/05/22 Office Visit Oswaldo Serrano MD [facility] 10/07/21 Office Visit Oswaldo Serrano MD [facility]aj Showing recent visits within past 365 days and meeting all other requirements Future Appointments No visits were found meeting these conditions. Showing future appointments within next 90 days and meeting all other requirements documented in this encounter Plan of Treatment Upcoming Encounters Date Type Department Care Team (Late st Contact Info) Description 07/17/2025 2:45 PM CDT Office Visit [facility] - Family Medicine - [place] [address] [place] [address] Oswaldo Serrano MD #[address] [address] 07/22/2025 2:30 PM CDT Office Visit [facility] - Endocrinology - [place] #[address] [place] [address] Ok Jorge MD #[address] [address] 07/30/2025 2:45 PM CDT Office Visit [facility] UR[facility]Y #2 [place] [address] Orlin Urbina APRN, ORDNANCE EQUIPMENT WORKER #2 [place] [address] documented as of this encounter Visit Diagnoses Not on filedocumented in this encounter Additional Health Concerns Assessment Noted Time PHQ-9 Depression Total Score: 2 07/18/20 20 4:26 PM CDT documented as of this encounter Care Teams Optometry Professor Relationship Specialty Start Date End Date Oswaldo Serrano MD #[address] [address] PCP - General Family Medicine 05/19/17 Angel Crowe DPM #[address] [address] Consulting Physician Podiatry 06/16/17 Mora Fritz Behavioral Health Navigator 06/15/18 Ok Jorge MD #[address] [address] Consulting Physician Endocrinology 05/12/22 Orlin Urbina APRN, ORDNANCE EQUIPMENT WORKER [address] [place] [address] Nurse Practitioner Advanced Practice Nurse 11/09/22 documented as of this encounter
--- OUTSIDE RECORDS SUMMARY | 2025-06-07 17:56 | XMS_ITS | Encounter Summary ---
Author Organization [facility] Address [address] [place] [address] Phone Care Team Providers Care Technical Administrative Assistant Name Role Phone Oswaldo Serrano MD Primary Care Provider [phone] Angel Crowe DPCiraa Unavailable [phone] Mora Fritz Unavailable Unavailable Ok Jorge MD Unavailable Orlin Urbina APRN, SHEET TESTER Unavailable [phone] Reason for Visit * Reason Comments Medication Refill Encounter Details Date Type Department Care Team (Late st Contact Info) Description 07/14/2022 Refill [facility] - Family Medicine - [place] [address] [place] [address] Oswaldo Serrano MD #[address] [address] Medication Refill Social History Tobacco Use Types [...] Description 07/17/2025 2:45 PM CDT Office Visit [facility] - Family Medicine - [place] #[address] [place] [address] Oswaldo Serrano MD #[address] [address] 07/22/2025 2:30 PM CDT Office Visit [facility] - [facility]inology - [place] [facility] [facility] [place] [address] Ok Jorge MD #[address] [address] 07/30/2025 2:45 PM CDT Office Visit [facility] UROLOGY #2 [place] [address] Orlin Urbina, AUTOMATION MACHINE BUILDER, SHEET TESTER [address] [place] [address] documented as of this encounter Visit Diagnoses Not on filedocumented in this encounter Additional Health Concerns Assessment Noted Time PHQ-9 Depression Total Score: 2 07/18/20 20 4:26 PM CDT documented as of this encounter Care Teams Technical Administrative Assistant Relationship Specialty Start Date End Date Oswaldo Serrano MD #[address] [address] PCP - General Family Medicine 05/19/17 Angel Crowe DPM #[address] [place] [address] Consulting Physician Podiatry 06/16/17 Mora Fritz [place] Behavioral Health Navigator 06/15/18 Ok Jorge MD [facility] [address] [address] Consulting Physician Endocrinology 05/12/22 Orlin Urbina APRN, YUDI #2 [place] [address] Nurse Practitioner Advanced Practice Nurse 11/09/22 documented as of this encounter
--- OUTSIDE RECORDS SUMMARY | 2025-06-07 17:57 | XMS_ITS | Encounter Summary ---
Author Organization [facility] Address [address] [place] [address] Care Team Providers Care Abattoir Supervisor Name Role Phone Ernie Fredis Irina CARTOGRAPHY SUPERVISOR-CASH APPLICATIONS 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 Primary Care Provider Reason for Visit * Reason Onset Date Comments Transitional Care 06/07/2025 Encounter Details Date Type Department Care Team (Late st Contact Info) Description 06/07/2025 Telephone Transitional Care at [address] [address] Radha Villegas, RN Transitional Care Social History Tobacco Use Types Packs/Day Years Used Date Smoking Tobacco: Never Smokeless Tobacco: Never Alcohol Use Standard Drinks/Week Comments Never 0 [...] and heating? Not hard at all 05/15/2025 [facility] of Occupat ional Health - Occupational Stress [...] any time in the past 12 m [facility], were you homeless or living in a fpc (including now)? No 05/15/2025 Comments Unknown Sex and Gender Information Value Date Recorded Sex Assigned at Not on file Legal Sex Female 4:45 PM CDT Gender Identity Not on file Sexual Orientation Not on file documented as of this encounter Functional Status * Is person deaf or have serious hearing difficulty? Answer Date of Assessment Author No 05/16/2025 12:10 PM CDT Naa Logan RN * Is person blind or have serious difficulty seeing? Answer Date of Assessment Author Yes 05/16/2025 12:10 PM CDT Naa Logan RN * Does person have serious difficulty walking/climbing stairs? Answer Date of Assessment Author Yes 05/16/2025 12:10 PM CDT Naa Logan, RN * Does person have difficulty dressing/bathing? Answer Date of Assessment Author No 05/16/2025 12:10 PM CDT Naa Logan, RN * Does person have difficulty doing errands alone? Answer Date of Assessment Author Yes 05/16/2025 12:10 PM CDT Desmond , Naa R, RN documented as of this encounter Mental Status * Does person have difficulty concentrating/remembering/making decisions? Answer Entry Date Author Yes 05/16/2025 12:10 PM CDT Naa Logan RN documented in this encounter Miscellaneous Notes * Telephone Encounter - Radha Villegas RN - 06/07/2025 10:11 AM CDT Spoke with patient's nurse at [facility] ([phone]). Patient is being followed by facility physician, Dr. Reddy. Call duration: 3 mins Radha Villegas RN, BSN Glass Sander Belt, [facility] [phone] 06/07/2025 documented in this encounter Plan of Treatment Upcoming Encounters Date Type Department Care Team (Late st Contact Info) Description 11/28/2025 1:30 PM ANIMAL TRAINER SUPERVISOR Office Visit [facility] [place] [address] [facility] [place] [address] Tiffanie Brown MD [address] [place] [address] documented as of this encounter Visit Diagnoses Not on filedocumented in this encounter Care Teams Abattoir Supervisor Relationship Specialty Start Date End Date Fredis Klein, JOHN-CASH APPLICATIONS 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 [address] [place] [address] PCP - General 08/08/18 documented as of this encounter
--- OUTSIDE RECORDS SUMMARY | 2025-06-07 17:58 | XMS_ITS | Encounter Summary ---
Author Organization [facility] Address [address] [place] [address] Phone Care Team Providers Care Marketing Administrative Assistant Name Role Phone Oswaldo Serrano MD Primary Care Provider Angel Crowe DPM Unavailable [phone] Mora Fritz Unavailable Unavailable Ok Jorge MD Unavailable Orlin Urbina APRN, MANAGER CUSTOM Unavailable [phone] Reason for Visit * Reason Comments Medication Refill Encounter Details Date Type Department Care Team (Late st Contact Info) Description 12/02/2020 Refill [facility] - Family Medicine - [place] [address]2 [place] [address] Connor Yuan APRN, MANAGER CUSTOM #[address] [address] Medication Refill Social History Tobacco Use Types [...] COVID-19? No / Unsure 11/28/2020 2:56 PM RECRUITING CONSULTANT documented as of this encounter Miscellaneous Notes * Telephone Encounter - Connie Gamez RN - 12/02/2020 11:24 AM CST Refused as patient needs lab work done. Connie RN UITING CONSULTANT documented in this encounter Plan of Treatment Upcoming Encounters Date Type Department Care Team (Late st Contact Info) Description 07/17/2025 2:45 PM CDT Office Visit [facility] - Family Medicine [facility] #2 [place] [address] Oswaldo Serrano MD #2 [facility] [address] [place] [address] 07/22/2025 2:30 PM CDT Office Visit [facility] - Endocrinology - [place] #2 [place] [address] Ok Jorge MD #2 [facility] [address] [place] [address] 07/30/2025 2:45 PM CDT Office Visit [facility] UROLOGY #2 [place] [address] Orlin Urbina APRN, MANAGER CUSTOM [address] [place] [address] documented as of this encounter Visit Diagnoses Diagnosis Vitamin D deficiency Unspecified vitamin D deficiency documented in this encounter Additional Health Concerns Infection Onset Date Last Indicated Resolved Time COVID - 19 07/28/2021 07/29/2021 08/17/2021 12:1 6 AM RECRUITING CONSULTANT Assessment Noted Time PHQ-9 Depression Total Score: 2 07/18/20 4:26 PM CDT documented as of this encounter Care Teams Marketing Administrative Assistant Relationship Specialty Start Date End Date Oswaldo Serrano MD #2 [facility] [address] [place] [address] PCP - General Family Medicine 05/19/17 Angel Crowe DPM #2 [facility] [address] [place] [address] Consulting Physician Podiatry 06/16/17 Mora Fritz [place] Behavioral Health Navigator 06/15/18 Ok Jorge MD #2 [facility] [address] [place] [address] Consulting Physician Endocrinology 05/12/22 Orlin Urbina APRN, MANAGER CUSTOM #[address] [place] [address] Nurse Practitioner Advanced Practice Nurse 11/09/22 documented as of this encounter
--- OUTSIDE RECORDS SUMMARY | 2025-06-07 17:58 | XMS_ITS | Clinical Summary ---
Author Organization [facility] Address [address] [place] [address] Phone Care Team Providers Care Feed Research Aide Name Role Phone Oswaldo Serrano MD Primary Care Provider Angel Crowe DPM Unavailable [phone] Mora Fritz Unavailable Unavailable Ok Jorge MD Unavailable Orlin Urbina APRN, MERCHANDISING COORDINATOR Unavailable Allergies Active Allergy Reactions Criticality Noted Date Comments Sulfa Antibiotics Unknown,Hives 07/15/2016 Sulfamethoxazole-Trimethoprim Hives Medications Blood Glucose Monitoring Suppl Device Test blood glucose 4 times daily. E11.9, insulin dependent 1 Each 2019 Active Lancets Misc Test four times daily. E11.9, insulin dependent 400 Lancet 3 2019 Active Insulin Syringe-Needle U-100 (TRUEPLUS INSULIN SYRINGE) 31G X 5/16 0.5 ML Misc USE 4 TIMES DAILY 400 Each 3 2019 Active Continuous Blood Gluc Transmit (Dexcom G6 Transmitter) [facility] 2021 Active Cyanocobalamin (B-12) 500 MCG TabletIndications: Vitamin B12 Deficiency Take 1 Tablet by mouth daily. 90 Tablet 3 2022 Active Blood Glucose Monitoring Suppl Device Test blood glucose 1x daily, E11.9, insulin dependent 1 Each 2022 Active Lancets [facility] 1 Lancet by Does not apply route daily. Test blood glucose 1x daily. E11.9, insulin dependent 100 Lancet 3 2022 Active fluticasone (FLONASE) 50 MCG/ACT SuspensionIndicati ons:Nasal Congestion 1-2 Sprays by Nasal route daily. Use in each nostril as directed. 1 g 3 2022 Active Insulin Pen Needle (BD Pen Needle Trina 2nd Gen) 32G X 4 MM [facility] USE TO INJECT FOUR TIMES DAILY 400 Each 3 2023 Active Glucose Blood Strip Use to test blood glucose 1x daily. E11.9, insulin dependent 100 Strip 3 2023 Active Glucose Blood (OneTouch Verio) Strip 4 times a day 400 Each 3 2023 Active albuterol 108 (90 Base) MCG/ACT Aerosol SolutionIndication s:Exacerbation of Chronic Obstructive Pulmonary Disease INHALE 1 TO 2 PUFFS BY MOUTH EVERY 4 HOURS NEEDED FOR COUGH 18 g 2023 Active omeprazole (PriLOSEC) 20 MG CAPSULE DELAYED RELEASEIndications :Symptomatic Gastroesophageal Reflux Disease (Inactive) TAKE 1 CAPSULE BY MOUTH DAILY 90 Capsule 1 2023 Active metoprolol Succinate (TOPROL-XL) 100 MG TABLET SR 24 HRIndications:Atri al Fibrillation,Heart Failure,Hypertensi on Take 100 mg by mouth daily. Indications: Atrial Fibrillation, Cardiac Failure, High Blood Pressure Activ e levothyroxine (SYNTHROID) 75 MCG TabletIndications: Hypothyroidism TAKE 1 TABLET BY MOUTH EVERY MORNING 90 Tablet 3 2023 Active spironolactone (ALDACTONE) 25 MG TabletIndications: Hypertension,HF TAKE 1/2 TABLET BY MOUTH DAILY 45 Tablet 1 2023 Active cefadroxil (DURICEF) 500 MG Capsule Take 1,000 mg by mouth 2 times daily. 2024 Active ferrous sulfate 325 (65 Fe) MG TabletIndications: Iron Deficiency Take 325 mg by mouth daily. Indications: Iron Deficiency 2024 Active rivaroxaban (Xarelto) 20 MG TabletIndications: Atrial Fibrillation Take 20 mg by mouth daily. Indications: Atrial Fibrillation 2024 Active Lidocaine 4 % Patch 1 Patch by Transdermal route. Active Acetaminophen-DM (Coricidin HBP Cold/Cough/Flu) 650-20 MG/30ML Liquid Take 30 mL by mouth every 4 hours as needed for Other (congestion). 2024 Active escitalopram (LEXAPRO) 10 MG Tablet TAKE 1 TABLET BY MOUTH DAILY 90 Tablet 1 2024 Active nortriptyline (PAMELOR) 10 MG Capsule Take 1 Capsule by mouth nightly. 90 Capsule 1 2024 Active Continuous Glucose Sensor ([employer] G7 Sensor) Misc 1 Each by Does not apply route every 10 days. Change sensor every 10 days. 9 Each 1 2024 Active Vibegron (Gemtesa) 75 MG Tablet Take 1 Tablet by mouth daily. 2024 Active hydrOXYzine (ATARAX) 25 MG Tablet Take 25 mg by mouth every 4 hours as needed for Anxiety or Itching. 2024 Active polyethylene glycol (MiraLax) 17 g Pack Take 17 g by mouth daily as needed for Constipation - 1st line. 2024 Active acetaminophen Extra Strength (TYLENOL) 500 MG Tablet Take 500 mg by mouth every 6 hours as needed. 2024 Active hydrocortisone 1 % Cream 2024 Active magnesium oxide (MAG-OX) 400 (240 Mg) MG Tablet Take 400 mg by mouth daily. 2024 Active Insulin Aspart FlexPen 100 UNIT/ML Solution Pen-injector 15-18 units before each meal; correctional factor insulin of 1:30 if >140 mg/dL, up to 60 units per day 60 mL 1 2024 Active furosemide (LASIX) 40 MG Tablet Take 40 mg by mouth 2 times daily (with meals). 2 tabs in am and 1 tab in afternoon 2024 Active insulin glargine (LANTUS, BASAGLAR) 100 UNIT/ML Solution Pen-injector [The details of the medication are not available because there are pending changes by a home health clinician.] 15 mL 1 2024 Active Additional Information Patient taking differently: 14 UnitsSubcutaneous EVERY MORNING, Reported on 05/14/2025 Continuous Glucose Slasher Machine Operator ([employer] G7 Slasher Machine Operator) Device 1 Each by Does not apply route 4 times daily. Use to check glucose 4x daily. 1 Each 2024 Active busPIRone (BUSPAR) 10 MG Tablet Take 1 Tablet by mouth 2 times daily. 60 Tablet 2024 Active docusate sodium (COLACE) 100 MG CapsuleIndications :Constipation TAKE 1 CAPSULE BY MOUTH TWICE DAILY 60 Capsule 2 2024 Active docusate sodium (COLACE) 100 MG CapsuleIndications :Constipation TAKE 1 CAPSULE BY MOUTH TWICE DAILY 60 Capsule 2 05/16 Discontinued Active Problems Problem Noted Date Diagnosed Date Congestive heart failure 03/20/2025 Obesity (BMI 30-39.9) 03/20/2025 Gastroesophageal reflux disease 03/20/2025 Skin lesion 03/20/2025 Dry skin 11/29/2024 Toe infection 11/29/2024 Diabetic [...] Anemia of infection and chronic disease 06/17/20 Iron deficiency 06/17/2017 Diabetic polyneuropathy asso ciated [...] Encounters Date Type Department Care Team Description 05/20/2025 Home Care Visit [facility] [address] [place] [address] Merry Davey RN SN - OASIS TRANSFER W/OUT DC 05/16/2025 Refill [facility] [place] [address] Oswaldo Serrano MD Medication Refill 05/16/2025 Results [facility]-Up [facility] [address] [place] [phone] Oswaldo Serrano MD URINALYSIS REFLEX IF INDICATED BY ABNORMAL RESULTS 05/14/2025 3:00 PM CDT Home Care Visit [address] [address] Merry Davey, RN SN - HOME VISIT 05/14/2025 Home Care Visit [address] [address] Merry Davey, RN CARE CONFERENCE 05/07/2025 1:30 PM CDT Home Care Visit [address] [address] Hina Fernandes, PT PT - INITIAL EVALUATION 05/07/2025 12:00 PM CDT Home Care Visit [address] [address] Tika Tobin LPN SN - HOME VISIT 05/07/2025 Travel 05/06/2025 Home Care Visit [address] [address] Rosa Hurt, PT TELEPHONE ENCOUNTER 05/03/2025 Telephone [facility] [address] [place] [address] Oswaldo Serrano MD 05/03/2025 Plan of Care Documentation [address] [address] 05/02/2025 1:00 PM CDT Home Care Visit [address] [address] Merry Davey, RN SN - OASIS START OF CARE 04/19/2025 1:15 PM CDT Office Visit [facility] [address] [place] [address] Ok Jorge MD Type 2 diabetes mellitus treated with insulin (HCC) (Primary Dx); Insulin dose changed (HCC); Class 2 severe obesity due to excess calories with serious comorbidity and body mass index (BMI) of 37.0 to 37.9 in adult ([facility]) Discharge Disposition: Discharged to home or Selfcare 04/19/2025 Travel 04/15/2025 1:30 PM CDT Home Care Visit [address] [address] Rosa Hurt, PT PT - OASIS DISCHARGE 04/09/2025 2:30 PM CDT Home Care Visit [address] [address] Alondra Covarrubias, TELEGRAPH INSPECTOR PT - HOME VISIT 04/09/2025 12:00 PM CDT Home Care Visit [address] [address] Merry Davey RN SN - DISCIPLINE DISCHARGE 04/09/2025 Telephone [facility] - Gastroenterology [facility] [address] [place] [address] Lou Bhatt APRN, MERCHANDISING COORDINATOR 04/05/2025 Home Care Visit [address] [address] Ivette Canales OT OT - DISCHARGE SUMMARY 04/03/2025 2:30 PM CDT Home Care Visit [address] [address] Alondra Covarrubias TELEGRAPH INSPECTOR PT - HOME VISIT 04/02/2025 12:00 PM CDT Home Care Visit [address] [address] Sweta House OTA OT - DISCIPLINE DISCHARGE 04/02/2025 Home Care Visit [address] [address] Sweta House OTA CASE COMMUNICATION 04/02/2025 Travel 04/01/2025 Results Follow-Up [facility] - Family Medicine [facility] [address] [place] [address] Oswaldo Serrano MD HEPATITIS C ANTIBODY 03/29/2025 12:30 PM CDT Home Care Visit [address] [address] Mica Austin OTA OT - HOME VISIT 03/28/2025 Home Care Visit [address] [address] Mica Austin, ADRIAN RESCHEDULED MISSED VISIT 03/28/2025 Results [facility]Up [facility] [address] [place] [address] Oswaldo Serrano MD HEPATITIS PANEL ACUTE (AHP), CMP (COMPREHENSIVE METABOLIC PANEL) 03/28/2025 Home Care Visit [address] [address] Mica Austin OTA TELEPHONE ENCOUNTER 03/27/2025 2:45 PM CDT Home Care Visit [address] [address] Liz Cooper, COMMAND CENTER OFFICER-SPEECH LANGUAGE PATHOLOGIST COMMAND CENTER OFFICER - INITIAL EVALUATION 03/27/2025 Telephone [facility] [address] [place] [address] Oswaldo Serrano MD Need Order 03/26/2025 1:30 PM CDT Home Care Visit [address] [address] Mica Austin OTA OT - HOME VISIT 03/26/2025 11:00 AM CDT Home Care Visit [address] [address] Ynes Garcia RN SN - HOME VISIT 03/26/2025 11:00 AM CDT Home Care Visit [address] [address] Alicia Bundy, PT PT - INITIAL EVALUATION 03/26/2025 Home Care Visit [address] [address] Mica Austin OTA CASE COMMUNICATION 03/25/2025 Telephone [facility] [address] [place] [address] Ok Jorge MD Medication Refill 03/22/2025 11:00 AM CDT Home Care Visit [address] [address] Merry Davey, RN SN - HOME VISIT 03/21/2025 1:00 PM CDT Home Care Visit [address] [address] Ivette Canales OT OT - INITIAL EVALUATION 03/20/2025 2:30 PM CDT Office Visit [facility] [address] [place] [address] Oswaldo Serrano MD Congestive heart failure, unspecified HF chronicity, unspecified heart failure type (HCC) (Primary Dx); Gastroesophageal reflux disease, unspecified whether esophagitis present; Obesity (BMI 30-39.9); Rash; Skin lesion Discharge Disposition: Discharged to home or Selfcare 03/20/2025 Telephone [facility] [address] [place] [address] Ok Jorge MD Medication Management 03/20/2025 Telephone [facility] [address] [place] [address] Oswaldo Serrano MD Need Order 03/20/2025 Travel 03/20/2025 Home Care Visit [address] [address] Ynes Torres OT TELEPHONE ENCOUNTER 03/19/2025 10:00 AM CDT Home Care Visit [address] [address] Merry Davey, RN SN - OASIS START OF CARE 03/19/2025 Plan of Care Documentation [address] [address] 03/14/2025 Telephone [facility] - Endocrinology - [place] [address] [place] [address] Ok Jorge MD Medication Management from Last 3 Months Immunizations Immunization Administration Dates Next Due Covid-19, Mrna, Lnp-s, Pf, 3 0 Mcg/0.3 Ml Dose (Pfizer) 01/18/2021,12/23/2020 Influenza Vaccine 07/02/2014 Influenza Vaccine, Quadrivalent, PF 08/10,07/18/2020,06/22/2019,08/19,07/17/2015,07/02/2014 Pneumococcal conjugate PCV20 , polysaccharide [id number] conjugate, adjuvant, PF 08/26/2022 TDAP Vaccine 06/10/2024 Family History Medical History Relation Name Comments Diabetes Father Corbin Heart Attack Father Corbin Heart Disease Father Corbin Hypertension Father Corbin Cancer Maternal Grandfather Osmar Cancer Maternal Grandmother Laura Diabetes Mother Abiola Heart Disease Mother Abiola Hypertension Mother Abiola Seizures Mother Abiola Relation Name Status Comments Father Corbin Alive Maternal Grandfather Osmar Alive Maternal Grandmother Laura Alive Mother Abiola Social History Tobacco Use Types Packs/Day Years Used Date Smoking Tobacco: Never Smokeless Tobacco: Never Tobacco Cessation:Counseling Given: Yes Alcohol Use Standard Drinks/Week Comments No 0 (1 standard drink = 0.6 oz pur e alcohol) [facility] Utilities Answer Date Recorded In the past 12 months has [employer], gas, oil, or water [employer] threatened to shut off services in your [...] often do you attend chur ch or evangelical services? Never 11/29/2024 Do you belong to any clubs o r organizations such as roman catholic groups, unions, fraternal or athletic groups, [...] Total Score - Questions 1-9 2 10/11 [facility] - [...] in a prison (including now)? No 11/09/2023 Housing Stability Vital [...] living in a prison (including now)? No 11/29/2024 Education Answer Date [...] Sign Reading Time Taken Comments Blood Pressure 112/72 05/14/2025 3:52 PM CDT Pulse 106 05/14/2025 3:52 PM CDT Temperature 35.8 C (96.4 F) 05/14/2025 3:52 PM CDT Respiratory Rate 18 05/14/2025 3:52 PM CDT Oxygen Saturation 100% 05/14/2025 3:52 PM CDT Inhaled Oxygen Concentration - - Weight 121.1 kg (267 lb) 05/14/2025 3:52 PM CDT Height 167.6 cm (5' 6) 05/02/2025 3:00 PM CDT Body Mass Index 43.09 05/02/2025 3:00 PM CDT Plan of Treatment Upcoming Encounters Date Type Department Care Team (Late st Contact Info) Description 07/17/2025 2:45 PM CDT Office Visit [facility] - Family Medicine - [place] [address] [place] [address] Oswaldo Serrano MD [address] [address] 07/22/2025 2:30 PM CDT Office Visit [facility] - Endocrinology - [place] [address] [facility] [place] [phone] Ok Jorge MD #[address] [phone] 07/30/2025 2:45 PM CDT Office Visit [facility] [address] [place] [address] Orlin Urbina APRN, MERCHANDISING COORDINATOR [address] [place] [address] Health Maintenance Due Date Last Done Comments Diabetes: Foot Exam 1961 HPV/Cotest 12/20/1991 Colonoscopy 2006 Immunochemical Fecal Occult Blood 2006 Zoster Immunization (1 of 2) 12/20/2011 Hepatitis B Immunization (1 of 3 - Risk 3-dose series) 2021 Respiratory Syncytial Virus (RSV) Immunization (Adult) (1 - Risk 60-74 years 1-dose series) 2021 Diabetes: Eye Exam 02/24/2024 02/23/2023, 0 02/23/2023, 10/16/2021, Additional history exists SARS-COV-2 Immunization ( - 2023- season) 2024 01/18/2021, 12/23/2020 Mammogram 12/01/2024 12/01/2023, 11/10, 10/27/2021, Additional history exists Influenza Immunization (#1) 06/10/202508/10, 07/18/2020, 06/22/2019, Additional history exists Cologuard 09/23/2025 09/23/2022 Colorectal Cancer Screening 09/23/2025 Cervical Cancer Screening (CCS) 11/09/2025 Pap Smear 11/09/2025 11/09/2022, 06/06/2017 Diabetes: Hemoglobin A1c 11/16/2025 025, 02/23/2025, 10/21/2024, Additional history exists Diabetes: Nephropathy Screening 03/26/2026 03/26/2025, 11/09/2023, 06/21/2023, Additional history exists Td Immunization Every 10 Years (Adults With 1 Tdap) 06/10/2034 06/10/2024 Pneumococcal Immunization (50+ years) Completed 08/26/2022 Pneumococcal Immunization Combined Discontinued 08/26/2022 TdaP Immunization Discontinued 06/10/2024 Human Papillomavirus (HPV) Immunization Aged Out No [...] REFLEX IF INDICATED BY ABNORMAL RESULTS Routine 05/07/2025 12:00 AM CDT Bladder infection HEPATITIS C ANTIBODY 03/26/2025 12:00 AM CDT CMP (COMPREHENSIVE METABOLIC PANEL) Routine 03/26/2025 12:00 AM CDT Elevated LFTs HEPATITIS PANEL ACUTE (AHP) Routine 03/26/2025 12:00 AM CDT Elevated LFTs POCT GLYCOSYLATED HEMOGLOBIN Routine 01/04/2024 3:30 PM CDT Type 2 diabetes mellitus treated with insulin (HCC) SHABANA DIAG BILATERAL DIGITAL W CAD Routine 12/01/2023 3:15 PM MARKETING SUPPORT SPECIALIST Abnormal mammogram HM DILATED EYE EXAM 02/23/2023 1 2:00 AM CDT PATHOLOGY CYTOLOGY MAGISTRATE JUDGE Routine 11/09/2022 3:06 PM MARKETING SUPPORT SPECIALIST Encounter for well woman exam with routine gynecological exam COLOGUARD Routine 09/23/2022 4:00 PM MARKETING SUPPORT SPECIALIST Screening for colon cancer from Last 3 Months or Most Recently Relevant to Health Maintenance Results * URINALYSIS REFLEX IF INDICATED BY ABNORMAL RESULTS (05/07/2025 12:00 AM CDT) Urine URINE SPECIMEN OBTAINED BY CLEAN CATCH PROCEDURE / Unknown Oswaldo Serrano MD URINE ORDERABLES Final Re sult Performing Organization Address [facility] de Phone Number SCAN * HEPATITIS PANEL ACUTE (AHP) (03/26/2025 12:00 AM CDT) Blood Oswaldo Serrano MD HEMATOLOGY ORDERABLES Fin al Result Performing Organization Address [facility] Co de Phone Number SCAN * HEPATITIS C ANTIBODY (03/26/2025 12:00 AM CDT) 03/26/2025 Oswaldo Serrano MD CHEMISTRY ORDERABLES Ayanna l Result Performing Organization Address [facility] Co de Phone Number SCAN * CMP (COMPREHENSIVE METABOLIC PANEL) (03/26/2025 12:00 AM CDT) Blood Result [facility] Oswaldo Serrano MD CHEMISTRY ORDERABLES Ayanna l Result Performing Organization Address [facility] de Phone Number SCAN * (ABNORMAL) POCT GLYCOSYLATED HEMOGLOBIN (01/04/2024 3:30 PM CDT) HGB-A1C 8.9(A) 4 - 6 % Blood 01/04/2024 3:30 PM CDT Ok Jorge MD POINT OF CARE TESTING (MANUAL) F inal Result * SHABANA DIAG BILATERAL DIGITAL W CAD (12/01/2023 3:15 PM MARKETING SUPPORT SPECIALIST) Anatomical Region Laterality Modality breast Bilateral Mammography 12/01/2023 2:48 PM MARKETING SUPPORT SPECIALIST Narrative 12/02/2023 1:16 PM MARKETING SUPPORT SPECIALIST - SHABANA DIAG BILATERAL DIGITAL W CAD [...] dated: 11/25/2022, 09/14/2022, 01/29/2022, 10/27/2021, and [facility] BREAST TISSUE:There are scattered fibroglandular densities [...] signed by: Arsalan Bocanegra M.D. ll/:12/01/2023 15:11:27 Surgeon'S Assistant(s): RT Lauri(R)(M), [facility]: Normal Exam Reading location: [facility] BI-RADS: 2 Benign Procedure [...] dated: 11/25/2022, 09/14/2022, 01/29/2022, 10/27/2021, and 10/17/2018 [facility]. BREAST TISSUE:There are scattered fibroglandular densities [...] signed by: Arsalan Bocanegra M.D. ll/:12/01/2023 15:11:27 Surgeon'S Assistant(s): RT Lauri(R)(M), [facility] letter sent: Normal Exam Reading location: [facility] BI-RADS: 2 Benign Oswaldo Serrano MD IMG MAMMO ORDERABLES Ayanna l Result * HM DILATED EYE EXAM (02/23/2023 12:00 AM CDT) 02/23/2023 us Provider Scan PROCEDURE/MINOR SURGICAL ORDERAB LES Final Result SCAN * PATHOLOGY CYTOLOGY MAGISTRATE JUDGE (11/09/2022 3:06 PM MARKETING SUPPORT SPECIALIST) SPECIMEN ADEQUACY Satisfactory for evaluation. Endocervical/transf ormation zone component is absent. 11/18/2022 10:47 AM MARKETING SUPPORT SPECIALIST [facility] DESCRIPTIVE DIAGNOSIS NEGATIVE FOR INTRAEPITHELIAL LESIONS OR MALIGNANCY. 11/18/2022 10:47 AM MARKETING SUPPORT SPECIALIST [facility] at 1047 MARKETING SUPPORT SPECIALIST HPV Reflex if ASCUS? Yes 11/18/2022 10:47 AM MARKETING SUPPORT SPECIALIST [facility] Automated Examination Analysis of this sample has been assisted by an automated imaging and review system ([employer] System, [employer], [place], [place]). This case is further evaluated and finalized by a firewall security engineer and/or pathologist. 11/18/2022 10:47 AM MARKETING SUPPORT SPECIALIST [facility] Disclaimer The PAP smear is a screening [...] recommended every three years for women 21-29, Co-Testing, a PAP test in conjunction with an HPV (Human Papillomavirus) test for women ages 30-65, and no PAP or HPV testing for women under the age of 21 or older than 65 unless clinically indicated. 11/18/2022 10:47 AM MARKETING SUPPORT SPECIALIST [facility] Other CERVIX UTERI STRUCTURE / Unknown Non-Phlebotomy Collection / Unknown 11/09/2022 3:06 PM MARKETING SUPPORT SPECIALIST 11/09/2022 3:06 PM MARKETING SUPPORT SPECIALIST us Jamison Hernández MD PATHOLOGY/CYTOLOGY ORDERABLES Final Result [facility] [address] [place] [address], * COLOGUARD (09/23/2022 4:00 PM MARKETING SUPPORT SPECIALIST) Cologuard Negative Negative [facility] Comment: NEGATIVE TEST RESULT. A negative Cologuard result indicates a low likelihood that a colorectal cancer (CRC) or advanced adenoma (adenomatous polyps with more advanced pre-malignant features) is present. The chance that a person with a negative Cologuard test has a colorectal cancer is less than 1 in 1500 (negative predictive value >99.9%) or has an advanced adenoma is less than 5.3% (negative predictive value 94.7%). These data are based on a prospective cross-sectional study of 10,000 individuals at average risk for colorectal cancer who were screened with both Cologuard and colonoscopy. (Deandra Brady et al, N Engl J Med 2014;370(14):0148-1939) The normal value (reference range) for this assay is negative. COLOGUARD RE-SCREENING RECOMMENDATION: Periodic colorectal cancer screening is an important part of preventive healthcare for asymptomatic individuals at average risk for colorectal cancer. Following a negative Cologuard result, the Canadian Cancer Society and U.S. Multi-Society Task Force screening guidelines recommend a Cologuard re-screening interval of 3 years. References: Canadian Cancer Society Guideline for Colorectal Cancer Screening: https://www.cancer.org/cancer/twxsf-itkiav-pkrmvg/mnvpprvlk-vvcxfdmgk-usorbzs/ acs-recommendations.html.; Chavez DK, Rob CR, Elroy TorresK, Colorectal Cancer Screening: Recommendations for Physicians and Patients from the U.S. Multi-Society Task Force on Colorectal Cancer Screening , Am J Gastroenterology 2017; 112:5784-4084. TEST DESCRIPTION: Composite algorithmic analysis of stool DNA-biomarkers with hemoglobin immunoassay. Quantitative values of individual biomarkers are not [...] colonoscopy. (Deandra Brooks, N Engl J Med 2014;370(14):3674-8554.) Cologuard may produce a false negative or false positive result (no colorectal cancer or precancerous polyp present at colonoscopy follow up). A negative Cologuard test result does not guarantee the absence of CRC or advanced adenoma (pre-cancer). The current Cologuard screening interval is every 3 years. (Canadian Cancer Society and U.S. Multi-Society Task Force). Cologuard performance data in a 10,000 patient pivotal study using colonoscopy as the reference method can be accessed at the following location: [email or web address]/results. Additional description of the Cologuard test process, warnings and precautions can be found at [email or web address]. Stool 09/23/2022 4:00 PM MARKETING SUPPORT SPECIALIST 09/25/2022 10:38 AM MARKETING SUPPORT SPECIALIST Connor Yuan APRN, CNP BODY FLUIDS & ST OOLS ORDERABLES Final Result [employer] [employer] [address] [place] [address], [employer] [address] [place] [address] from Last 3 Months or Most Recently Relevant to Health Maintenance Insurance MEDICARE C [facility] Advance Directives Documents on File Type Date Recorded Patient Home Worker Expl anation Power of End Stapler for Health Care 05/10/2018 9:03 AM * Full Code (Latest Code Status on File) Date Activated Date Inactivated Comments 05/05/2025 9:16 AM * Full Code Date Activated Date Inactivated Comments 03/20/2025 9:31 AM 05/05/2025 9:16 AM * Full Code Date Activated Date Inactivated Comments 11/13/2024 12:31 PM 03/20/2025 9:31 AM * Full Code Date Activated Date Inactivated Comments 11/13/2024 10:46 AM 11/13/2024 12:31 PM * Full Code Date Activated Date Inactivated Comments 05/24/2017 11:54 AM 03/29/2020 10:53 PM Care Teams Feed Research Aide Relationship Specialty Start Date End Date Oswaldo Serrano MD [address]2 [facility] [address] [place] [address] PCP - General Family Medicine 05/19/17 Angel Crowe DPM #2 [facility] [address] [place] [address] Consulting Physician Podiatry 06/16/17 Mora Fritz OH Behavioral Health Navigator 06/15/18 Ok Jorge MD #2 [facility] [address] [place] [address] Consulting Physician Endocrinology 05/12/22 Orlin Urbina APRN, MERCHANDISING COORDINATOR #2 [place] [address] Nurse Practitioner Advanced Practice Nurse 11/09/22
--- OUTSIDE RECORDS SUMMARY | 2025-06-07 17:58 | XMS_ITS | Encounter Summary ---
Author Organization [facility] Address [address] [place] [address] Phone Care Team Providers Care Photographer Aerial Name Role Phone Oswaldo Serrano MD Primary Care Provider [phone] Angel Crowe DPM Unavailable [phone] Mora Fritz Unavailable Unavailable Ok Jorge MD Unavailable Orlin Urbina APRN, SALES ENABLEMENT CONSULTANT Unavailable [phone] Reason for Visit * Reason Comments Medication Refill Encounter Details Date Type Department Care Team (Late st Contact Info) Description 11/26/2020 Refill [facility] - Family Medicine - [place] #2 [place] [address] Connor Yuan APRN, SALES ENABLEMENT CONSULTANT #[address] [address] Medication Refill Social History Tobacco Use Types [...] COVID-19? No / Unsure 11/28/2020 2:56 PM DATABASE REPORTING CONSULTANT documented as of this encounter Miscellaneous Notes * Telephone Encounter - Connie Gamez RN - 11/26/2020 3:08 PM CST Sent to PCP BASE REPORTING CONSULTANT * Telephone Encounter - Connie Gamez RN - 11/26/2020 3:07 PM CST Per nursing clinical judgement, provider to review and approve the medication(s) order(s) if appropriate. Last OV 11/07/20, F/U 12/08/20, Last Rx 09/11/20 4 capsules with 2 refills take 1 cap once a week Connie DASILVA Requested Prescriptions Pending Prescriptions Disp Refills ergocalciferol (VITAMIN D) 98639 UNIT Capsule [Pharmacy Med Name: VITAMIN D [...] Medicine - [place] Yuan, Connor Santos APN, SALES ENABLEMENT CONSULTANT 1 month ago Flu-like symptoms [facility] - Family Medicine - Oswaldo Moreno MD 2 months ago Chronic joint pain [facility] Oswaldo Moreno MD 4 months ago Diabetic polyneuropathy associated with type 2 diabetes mellitus (HCC) [facility] - Connor Hutchinson APN, CNP 4 months ago Acute diarrhea [facility] Connor Hutchinson APN, SALES ENABLEMENT CONSULTANT Upcoming Appointments Future Appointments In 2 days Ok Jorge MD [facility] Endocrinology [facility] In 1 week [facility]al[facility] VEHICLE DYNAMICS ENGINEER - Recent and Past Visits Recent Visits Date Type Provider Dept 11/07/20 Telemedicine Connor Yuan APN, YUDI [facility] 10/09/20 Office Visit Oswaldo Serrano MD [facility] 09/16/20 Telemedicine Oswaldo Serrano MD [facility] 07/18/20 Office Visit Connor Yuan APN, YUDI [facility] 07/11/20 Telemedicine Connor Yuan APN, YUDI [facility] [...] authorizing provider and meeting all other requirements BASE REPORTING CONSULTANT documented in this encounter Plan of Treatment Upcoming Encounters Date Type Department Care Team (Late st Contact Info) Description 07/17/2025 2:45 PM CDT Office [facility] - Family Medicine [facility] #2 [place] [address] Oswaldo Serrano MD #2 [facility] [address] [place] [address] 07/22/2025 2:30 PM CDT Office Visit [facility] - Endocrinology - [place] #2 [place] [address] Ok Jorge MD #[address] [address] 07/30/2025 2:45 PM CDT Office Visit [facility] UROLOGY #2 [place] [address] Orlin Urbina APRN, SALES ENABLEMENT CONSULTANT #2 [place] [address] documented as of this encounter Visit Diagnoses Diagnosis Vitamin D deficiency Unspecified vitamin D deficiency documented in this encounter Additional Health Concerns Infection Onset Date Last Indicated Resolved Time COVID - 19 07/28/2021 07/29/2021 08/17/2021 12:1 6 AM DATABASE REPORTING CONSULTANT Assessment Noted Time PHQ-9 Depression Total Score: 2 07/18/20 20 4:26 PM CDT documented as of this encounter Care Teams Photographer Aerial Relationship Specialty Start Date End Date Oswaldo Serrano MD #[address] [address] PCP - General Family Medicine 05/19/17 Angel Crowe DPM #[address] [address] Consulting Physician Podiatry 06/16/17 Mora Fritz [place] Behavioral Health Navigator 06/15/18 Ok Jorge MD #[address] [address] Consulting Physician Endocrinology 05/12/22 Orlin Urbina APRN, SALES ENABLEMENT CONSULTANT #2 [place] [address] Nurse Practitioner Advanced Practice Nurse 11/09/22 documented as of this encounter
--- OUTSIDE RECORDS SUMMARY | 2025-06-07 17:58 | XMS_ITS | Encounter Summary ---
Author Organization [facility] Address [address] [place] [address] Phone Care Team Providers Care Dominatrix Name Role Phone Oswaldo Serrano MD Primary Care Provider [phone] Angel Crowe DPM Unavailable [phone] Mora Fritz Unavailable Unavailable Ok Jorge MD Unavailable Orlin Urbina APRN, PEER HEALTH PROMOTER Unavailable [phone] Reason for Visit * Reason Comments Medication Refill Encounter Details Date Type Department Care Team (Late st Contact Info) Description 10/10/2023 Refill [facility] - Endocrinology - [place] #2 [place] [address] Ok Jorge MD #[address] [address] Medication Refill Social History Tobacco [...] Ynes Zuniga, RN - 10/11/2023 9:03 AM CONSULTANT Requested Prescriptions Pending Prescriptions Disp Refills ??? Insulin Pen Needle (BD Pen Needle Jackelin 2nd Gen) 32G X 4 MM Misc [Pharmacy Med Name: B-D JACKELIN 2ND GEN PEN NDL [id number]] 400 Each Sig: USE TO INJECT FOUR TIMES DAILY Next appt: 12/13/2023 ULTANT documented in this encounter Plan of Treatment Upcoming Encounters Date Type Department Care Team (Late st Contact Info) Description 07/17/2025 2:45 PM CDT Office Visit [facility] - Family Medicine [facility] #2 [place] [address] Oswaldo Serrano MD #2 [facility] [address] [place] [address] 07/22/2025 2:30 PM CDT Office Visit [facility] - Endocrinology [facility] #2 [place] [address] Ok Jorge MD #2 [facility] [address] [place] [address] 07/30/2025 2:45 PM CDT Office Visit [facility] #2 [place] [address] Olrin Urbina APRN, PEER HEALTH PROMOTER #2 [place] [address] documented as of this encounter Visit Diagnoses Not on filedocumented in this encounter Additional Health Concerns Assessment Noted Time PHQ-9 Depression Total Score: 0 08/09/20 23 2:56 PM CDT documented as of this encounter Care Teams Dominatrix Relationship Specialty Start Date End Date Oswaldo Serrano MD #[address] [address] PCP - General Family Medicine 05/19/17 Angel Crowe DPM #[address] [address] Consulting Physician Podiatry 06/16/17 Mora Fritz [place] Behavioral Health Navigator 06/15/18 Ok Jorge MD #[address] [address] Consulting Physician Endocrinology 05/12/22 Orlin Urbina APRN, PEER HEALTH PROMOTER #2 [place] [address] Nurse Practitioner Advanced Practice Nurse 11/09/22 documented as of this encounter
--- OUTSIDE RECORDS SUMMARY | 2025-06-07 17:58 | XMS_ITS | Patient Health Record ---
Author Organization [facility] Address [address] [facility] [address] [place], [place] [address] Care Team Providers Care Grain Manager Name Role Phone DAISHAJEREMÍAS Primary Care Provider [phone] Allergies Allergen (clinical drug ingredient) Drug/Non Drug Allergy documented on EMR Reaction Allergy Type Onset Date Status Substance with sulfonamide structure and antibacterial mechanism of action (substance) Sulfa Antibiotics Unknown Drug Allergy Active Results Component Value Reference Range Notes C-REACTIVE PROTEIN (4420) Reviewed date:08/10/2024 09:35:16 AM Interpretation: Performing Lab:[facility] BELLAMY-Htrnsb95620Francisca Antony[address] Krista Montiel MD Notes/Report: FASTING: NO FASTING:NO C-REACTIVE PROTEIN <3.0 <8.0 mg/L SED RATE BY MODIFIED WESTLETTY YURI (809) Reviewed date:08/10/2024 09:35:21 AM Interpretation: Performing Lab:[facility] [place] Krista Montiel MD Notes/Report: FASTING:NO FASTING: NO SED RATE BY MODIFIED BAILEY 53 < OR = 30 mm/h CBC (INCLUDES DIFF/PLT) (639 9) Reviewed date:08/10/2024 07:29:02 AM Interpretation: Performing Lab:[facility] BELLAMYa101Tennille AntonyaKS[address] Krista Montiel MD Notes/Report: FASTING:NO FASTING: [...] MPV 10.3 7.5-12.5 fL ABSOLUTE NEUTROPHILS 4795 0198-7990 cells/uL ABSOLUTE LYMPHOCYTES 1142 284-0887 cells/uL ABSOLUTE MONOCYTES 637 200-950 cells/uL ABSOLUTE EOSINOPHILS 322 15-500 cells/uL ABSOLUTE BASOPHILS 98 0-200 cells/uL NEUTROPHILS 68.5 LYMPHOCYTES 16.4 MONOCYTES 9.1 EOSINOPHILS 4.6 BASOPHILS 1.4 COMPREHENSIVE METABOLIC PANE (73504) Reviewed date:08/10/2024 03:56:35 PM Interpretation: Performing Lab:[facility], [facility][id number] Niyah Sheets, KbbwxsFW[address] Krista Montiel MD Notes/Report: FASTING: NO FASTING:NO [...] phone, visiting friends or family, going to pentecostalism or club meetings) I choose not to answer this question How stressed are you? Stress is when someone feels tense, nervous, anxious, or can't sleep at night because their mind is troubled I choose not to answer this question In the past year have you sp ent more than 2 nights in a row in a senior living, nursing home, mcfp center, or juvenile correctional facility? I choose [...] Notes Problem Inappropriate diet and eating habits (8081112005443) Inappropriate diet and eating habits (Z72.4) 01/31/20 Active confirmed Problem Obese class III (finding) (063937465) Obesity, class 3 (E66.813) 01/31/20 Active confirmed Problem Chronic systolic heart failure (389451264) Chronic systolic congestive heart failure (I50.22) Active confirmed Vital Signs Heart Rate 94 /min 01/30/2025 Temperature 98.0 degrees Fahrenheit 01/30/2025 Respiratory Rate 20 /min 01/30/2025 Height-cm 165.1 cm 01/30/2025 Blood pressure diastolic 77 mm Hg 01/30/2025 Oximetry 94 % 01/30/2025 Weight-kg 130.18 kg 01/30/2025 Height 65 in 01/30/2025 Blood pressure systolic 109 mm Hg 01/30/2025 Weight 287.0 lbs 01/30/2025 BMI 47.75 kg/m2 01/30/2025 Encounters Encounter Location Date Provider Diagnosis [facility] [address] [facility] [place], [place] [id number] 08/09/2024 JEREMÍAS ASHTON Acute bacterial endocarditis I33.0 ; Bacteremia R78.81 ; Methicillin susceptible Staphylococcus aureus infection as the cause of diseases classified elsewhere B95.61 and 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, initial encounter T82.7XXA [address] [id number] 09/17/2024 [facility] Acute bacterial endocarditis I33.0 and 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, initial encounter T82.7XXA [address] [id number] 01/30/2025 [facility] Acute bacterial endocarditis I33.0 ; 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, initial encounter T82.7XXA ; Chronic systolic congestive heart failure I50.22 ; Obesity, class 3 E66.813 and Inappropriate diet and eating habits Z72.[address] [id number] 09/18/[address] [id number] 12/17/[address] [id number] 02/21/2025 [facility] Assessments Encounter Date Diagnosis (ICD Code) [...] above. She will follow up with the cable stretcher and tester. 01/30/2025 Acute bacterial endocarditis (ICD-10 - I33.0) A long discussion is had with the patient and her sister about the importance of restarting the antibiotics at the correct dosing and she is given refills. This will be lifelong therapy as she is no longer a candidate for PPM change or valvular surgery. She will follow up with the cable stretcher and tester as she has severe CHF, valvular dysfunction, and is volume overloaded. Given her inability to comply with medications, a CPAP, weight loss, low sodium diet, and is no longer a surgical candidate, she is encouraged to talk with the cable stretcher and tester about the possiblity for hospice care. In [...] Name:JEREMÍAS Mills, 08/01/2025 01:00:00 PM, [address], [facility] [address], [place], [place], [id number], Insurance Providers Payer Name Payer Address Payer Phone Subscriber Number Group Number Insured Name Patient Relationship to Insured Coverage Start Date Coverage End Date [employer] [address] [place] [address] [id number] Loretta Moses am Self - patient is the insured [facility] [address] [address] [place], [place] [phone] [id number] Loretta Moses am Self - patient is [...]
--- OUTSIDE RECORDS SUMMARY | 2025-06-07 17:58 | XMS_ITS | Encounter Summary ---
Author Organization [facility] Address [address] [facility] [place] [address] Care Team Providers Care Senior Data Mining Analyst Name Role Phone Fredis Klein LACQUER MIXER-ELECTROMECHANIC Primary Care Provider Encounter Details Date Type Department Care Team (Late st Contact Info) Description 05/23/2025 Results Follow-Up [facility] ICU [address] [place] [id number] Radha Farrell, BROWN Social History Tobacco Use Types Packs/Day Years [...] and heating? Not hard at all 05/15/2025 [facility] [place] of Occupat ional Health - Occupational Stress [...] were you homeless or living in a care home (including now)? No 05/15/2025 Comments Unknown Sex [...] 12:10 PM CDT Naa Logan, RN * Is person blind or have serious difficulty seeing? Answer Date of Assessment Author Yes 05/16/2025 12:10 PM CDT Naa Logan, RN * Does person have serious difficulty walking/climbing stairs? Answer Date of Assessment Author Yes 05/16/2025 12:10 PM CDT Naa Logan, RN * Does person have difficulty dressing/bathing? Answer Date of Assessment Author No 05/16/2025 12:10 PM CDT Naa Loagn, RN * Does person have difficulty doing errands alone? Answer Date of Assessment Author Yes 05/16/2025 12:10 PM CDT Naa Logan RN documented as of this encounter Mental Status * Does person have difficulty concentrating/remembering/making decisions? Answer Entry Date Author Yes 05/16/2025 12:10 PM CDT Naa Logan RN documented in this encounter Plan of Treatment Upcoming Encounters Date Type Department Care Team (Late st Contact Info) Description 11/28/2025 1:30 PM FURNITURE MOVER HELPER Office Visit [facility] - [facility] [address] [facility] [place] [address] Tiffanie Brown MD [address] [facility] [address] [place] [address] documented as of this encounter Visit Diagnoses Not on filedocumented in this encounter Additional Health Concerns Infection Onset Date Last Indicated Resolved Time COVID-19 Under Investigation 05/27/2025 05/27/2025 05/27/2025 3:18 PM CDT documented as of this encounter Care Teams Senior Data Mining Analyst Relationship Specialty Start Date End Date Fredis Klein, JOHN-ELECTROMECHANIC [address] [place] [address] PCP - General 08/08/18 documented as of this encounter
--- OUTSIDE RECORDS SUMMARY | 2025-06-07 17:59 | XMS_ITS | Encounter Summary ---
Author Organization [facility] Address [address] [place] [address] Phone Care Team Providers Care Executive Office Manager Name Role Phone Oswaldo Serrano MD Primary Care Provider [phone] Angel Crowe DPCiara Unavailable [phone] Mora Fritz Unavailable Unavailable Ok Jorge MD Unavailable Orlin Urbina APRN, CONSULTING SALES EXECUTIVE Unavailable [phone] Reason for Visit * Reason Comments Medication Refill Encounter Details Date Type Department Care Team (Late st Contact Info) Description 02/02/2024 Refill [facility] - Family Medicine - [place] [address] [place] [address] Oswaldo Serrano MD #[address] [address] Medication Refill Social History Tobacco Use Types Packs/Day Years Used Date Smoking Tobacco: Never Smokeless Tobacco: Never Alcohol Use Standard Drinks/Week Comments No 0 (1 standard drink = 0.6 oz pur e alcohol) [facility] Utilities Answer Date Recorded In the past 12 months has e electric, gas, oil, or water company threatened to shut off services in your home? No 11/09/2023 Social Connection and Isolation Panel Answer Date [...] Score - Questions 1-9 0 10/3 10/2022 [facility] [place] of Occupat ional Health - Occupational Stress [...] Dept 11/09/23 Office Visit Oswaldo Serrano MD [facility] 08/09/23 Office Visit Oswaldo Serrano MD [facility] [...] Description 07/17/2025 2:45 PM CDT Office Visit [facility] Medical [facility] - Family Medicine - [place] #2 [place] [address] Oswaldo Serrano MD #[address] [address] 07/22/2025 2:30 PM CDT Office Visit [facility] Medical [facility] - Endocrinology - [place] #2 [place] [address] Ok Jorge MD #[address] [address] 07/30/2025 2:45 PM CDT Office Visit [facility] PHYS[facility]IAN [facility] UROLOGY #2 [place] [address] Orlin Urbina APRN, CONSULTING SALES EXECUTIVE #2 [place] [address] documented as of this encounter Visit Diagnoses Not on filedocumented in this encounter Additional Health Concerns Assessment Noted Time PHQ-9 Depression Total Score: 0 08/09/20 23 2:56 PM CDT documented as of this encounter Care Teams Executive Office Manager Relationship Specialty Start Date End Date Oswaldo Serrano MD #2 [facility] [address] [place] [address] PCP - General Family Medicine 05/19/17 Angel Crowe DPM #2 [facility] [address] [place] [address] Consulting Physician Podiatry 06/16/17 Mora Fritz [place] Behavioral Health Navigator 06/15/18 Ok Jorge MD #[address] [address] Consulting Physician Endocrinology 05/12/22 Orlin Urbina APRN, CONSULTING SALES EXECUTIVE #2 [place] [address] Nurse Practitioner Advanced Practice Nurse 11/09/22 documented as of this encounter
--- OUTSIDE RECORDS SUMMARY | 2025-06-07 17:59 | XMS_ITS | Encounter Summary ---
Author Organization [facility] Address [address] [place] [address] Phone Care Team Providers Care Barrel Centerer Name Role Phone Oswaldo Serrano MD Primary Care Provider [phone] Angel Crowe DPM Unavailable [phone] Mora Fritz Unavailable Unavailable Ok Jorge MD Unavailable Orlin Urbina APRN, VENETIAN BLIND CLEANER AND REPAIRER Unavailable [phone] Reason for Visit * Reason Comments Medication Refill Encounter Details Date Type Department Care Team (Late st Contact Info) Description 11/28/2020 Refill [facility] - Family Medicine - [place] #2 [place] [address] Connor Yuan APRN, VENETIAN BLIND CLEANER AND REPAIRER #[address] [address] Medication Refill Social History Tobacco Use Types [...] COVID-19? No / Unsure 11/28/2020 2:56 PM NEW ACCOUNTS 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 documented as of this encounter Plan of Treatment Upcoming Encounters Date Type Department Care Team (Late st Contact Info) Description 07/17/2025 2:45 PM CDT Office Visit [facility] Medical Group - Family Medicine [facility] #2 [place] [address] Oswaldo Serrano MD #[address] [address] 07/22/2025 2:30 PM CDT Office Visit [facility] Medical Group - Endocrinology [facility] #2 [place] [address] Ok Jorge MD #[address] [phone] 07/30/2025 2:45 PM CDT Office Visit [facility]Y #2 [place] [address] Orlin Urbina APRN, VENETIAN BLIND CLEANER AND REPAIRER #2 [place] [address] documented as of this encounter Visit Diagnoses Diagnosis Vitamin D deficiency Unspecified vitamin D deficiency documented in this encounter Additional Health Concerns Infection Onset Date Last Indicated Resolved Time COVID - 19 07/28/2021 07/29/2021 08/17/2021 12:1 6 AM NEW ACCOUNTS 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 Assessment Noted Time PHQ-9 Depression Total Score: 2 07/18/20 20 4:26 PM CDT documented as of this encounter Care Teams Barrel Centerer Relationship Specialty Start Date End Date Oswaldo Serrano MD #2 [facility] [address] [place] [address] PCP - General Family Medicine 05/19/17 Angel Crowe DPM #2 [facility] [address] [place] [address] Consulting Physician Podiatry 06/16/17 Mora Fritz PA Behavioral Health Navigator 06/15/18 Ok Jorge MD #2 [facility] [address] [place] [address] Consulting Physician Endocrinology 05/12/22 Orlin Urbina APRN, VENETIAN BLIND CLEANER AND REPAIRER #2 [place] [address] Nurse Practitioner Advanced Practice Nurse 11/09/22 documented as of this encounter
--- OUTSIDE RECORDS SUMMARY | 2025-06-07 17:59 | XMS_ITS | Encounter Summary ---
Author Organization [facility] Address [address] [place] [address] Phone Care Team Providers Care Candy Separator Enrobing Name Role Phone Oswaldo Serrano MD Primary Care Provider [phone] Angel Crowe DPM Unavailable [phone] Mora Fritz Unavailable Unavailable Ok Jorge MD Unavailable Orlin Urbina APRN, ENGINEERING DOCUMENTATION SPECIALIST Unavailable [phone] Reason for Visit * Reason Comments Medication Refill Encounter Details Date Type Department Care Team (Late st Contact Info) Description 12/23/2022 Refill [facility] [place] [facility] UROLOGY #2 [place] [address] Orlin Urbina APRN, ENGINEERING DOCUMENTATION SPECIALIST #2 [place] [address] Medication Refill Social History Tobacco Use Types [...] Coronavirus/COVID-19? No / Unsure 11/25/2022 12:13 PM SUPPLY CHAIN DESIGN MANAGER documented as of this encounter Plan of Treatment Upcoming Encounters Date Type Department Care Team (Late st Contact Info) Description 07/17/2025 2:45 PM CDT Office Visit [facility] Medical Group - Family Medicine [facility] #2 [place] [address] Oswaldo Serrano MD #[address] [address] 07/22/2025 2:30 PM CDT Office Visit [facility] Medical [facility] - Endocrinology [facility] #2 [place] [address] Ok Jorge MD #2 [facility] [address] [place] [address] 07/30/2025 2:45 PM CDT Office Visit [facility]IAN GROUP UROLOGY #2 [place] [address] Orlin Urbina APRN, ENGINEERING DOCUMENTATION SPECIALIST #2 [place] [address] documented as of this encounter Visit Diagnoses Not on filedocumented in this encounter Additional Health Concerns Assessment Noted Time PHQ-9 Depression Total Score: 0 10/14/19 23 11:00 AM SUPPLY CHAIN DESIGN MANAGER documented as of this encounter Care Teams Candy Separator Enrobing Relationship Specialty Start Date End Date Oswaldo Serrano MD #2 [facility] [address] [place] [address] PCP - General Family Medicine 05/19/17 Angel Crowe DPM #2 [facility] [address] [place] [address] Consulting Physician Podiatry 06/16/17 Mora Fritz Behavioral Health Navigator 06/15/18 Ok Jorge MD #2 [facility] [address] [place] [address] Consulting Physician Endocrinology 05/12/22 Orlin Urbina APRN, ENGINEERING DOCUMENTATION SPECIALIST #2 [place] [address] Nurse Practitioner Advanced Practice Nurse 11/09/22 documented as of this encounter
--- OUTSIDE RECORDS SUMMARY | 2025-06-07 17:59 | XMS_ITS | Encounter Summary ---
Author Organization [facility] Address [address] [place] [address] Phone Care Team Providers Care Conveyor Tender Name Role Phone Oswaldo Serrano MD Primary Care Provider Angel Crowe DPM Unavailable [phone] Mora Fritz Unavailable Unavailable Ok Jorge MD Unavailable Orlin Urbina APRN, RESPITE COORDINATOR Unavailable [phone] Reason for Visit * Reason Comments Medication Refill Encounter Details Date Type Department Care Team (Late st Contact Info) Description 02/18/2021 Refill [facility] - Family Medicine - [place] [address] [place] [address] Connor Yuan APRN, RESPITE COORDINATOR #[address] [address] Medication Refill Social History Tobacco Use Types [...] 12/13/20, Lab Vitamin D lab 12/13/20 26 Connei RN Requested Prescriptions Pending Prescriptions Disp Refills ergocalciferol (VITAMIN D) 70127 UNIT Capsule [Pharmacy Med Name: VITAMIN D [...] - Family Medicine - Connor Hutchinson APN, RESPITE COORDINATOR 2 months ago Essential hypertension [facility] - [facility] Medicine - Oswaldo Moreno MD 2 months ago Intractable cluster headache syndrome, unspecified chronicity pattern [facility] - Family Medicine - Oswaldo Moreno MD 2 months ago Subacute maxillary sinusitis [facility] Upcoming Appointments Future Appointments In 1 week Oswaldo Serrano MD [facility] In 2 weeks SAHCUSTECH2; SAHCUS2 [facility] Ultrasound, [facility] In 2 weeks Ok Jorge MD [facility] - Endocrinology [facility], [facility] GLUE SPRAYER - Recent and Past Visits Recent Visits Date Type Provider Dept 02/16/21 Office Visit Oswaldo Serrano MD [facility] 01/14/21 Office Visit Connor Yuan APN, RESPITE COORDINATOR [facility] 12/19/20 Office Visit Oswaldo Serrano MD [facility] 12/18/20 Telemedicine Oswaldo Serrano MD [facility] 12/08/20 Telemedicine Oswaldo Serrano MD [facility] 11/07/20 Telemedicine Connor Yuan APN, RESPITE COORDINATOR [facility] 10/09/20 Office Visit Oswaldo Serrano MD [facility] 09/16/20 Telemedicine Oswaldo Serrano MD [facility] 07/18/20 Office Visit Connor Yuan APN, YUDI [facility] 07/11/20 Telemedicine Connor Yuan APN, RESPITE COORDINATOR [facility] Showing recent visits within past [...] Description 07/17/2025 2:45 PM CDT Office Visit [facility] Family [facility] [address] [place] [address] Oswaldo Serrano MD #[address] [address] 07/22/2025 2:30 PM CDT Office Visit [facility] - Endocrinology [facility] [address] [place] [address] Ok Jorge MD #[address] [address] 07/30/2025 2:45 PM CDT Office Visit [facility] [address] [place] [phone] Orlin Urbina APRN, RESPITE COORDINATOR [address] [place] [address] documented as of this encounter Visit Diagnoses Diagnosis Vitamin D deficiency Unspecified vitamin D deficiency documented in this encounter Additional Health Concerns Infection Onset Date Last Indicated Resolved Time COVID - 19 07/28/2021 07/29/2021 08/17/2021 12:1 6 AM CUSTOMER TRAINING SPECIALIST Assessment Noted Time PHQ-9 Depression Total Score: 2 07/18/20 20 4:26 PM CDT documented as of this encounter Care Teams Conveyor Tender Relationship Specialty Start Date End Date Oswaldo Serrano MD #[address] [address] PCP - General Family Medicine 05/19/17 Angel Crowe DPM #[address] [address] Consulting Physician Podiatry 06/16/17 Mora Fritz Behavioral Health Navigator 06/15/18 Ok Jorge MD #[address] [address] Consulting Physician Endocrinology 05/12/22 Orlin Urbina APRN, RESPITE COORDINATOR [address] [place] [address] Nurse Practitioner Advanced Practice Nurse 11/09/22 documented as of this encounter
--- OUTSIDE RECORDS SUMMARY | 2025-06-07 17:59 | XMS_ITS | Encounter Summary ---
Author Organization [facility] Address [address] [place] [address] Phone Care Team Providers Care Exhibit Designer Name Role Phone Oswaldo Serrano MD Primary Care Provider [phone] Angel Crowe DPCiara Unavailable [phone] Mora Fritz Unavailable Unavailable Ok Jorge MD Unavailable Orlin Urbina APRN, HAIRSPRING TRUING INSPECTOR Unavailable [phone] Reason for Visit * Reason Comments Medication Refill Encounter Details Date Type Department Care Team (Late st Contact Info) Description 12/10/2020 Refill [facility] - [facility] Medicine - [place] [address] [place] [address] Oswaldo Serrano MD #[address] [address] Medication Refill Social History Tobacco Use Types [...] COVID-19? No / Unsure 12/13/2020 11:23 AM STEERSMAN documented as of this encounter Miscellaneous Notes [...] Visits 2 days ago [facility] - Oswaldo Moreno MD 1 month ago [facility] - Connor Hutchinson APN, YUDI 2 months ago Flu-like symptoms [facility] - Oswaldo Moreno MD 2 months ago Chronic joint pain [facility] - Oswaldo Moreno MD 4 months ago Diabetic polyneuropathy associated with type 2 diabetes mellitus (HCC) [facility] - Connor Hutchinson APN, YUDI Upcoming Appointments Future Appointments In 5 days Ok Jorge MD [facility] Medical [facility] - Endocrinology - [place], [facility] SKETCHER - Recent and Past Visits Recent Visits Date Type Provider Dept 12/08/20 Telemedicine Oswaldo Serrano MD [facility] 11/07/20 Telemedicine Connor Yuan APN, YUDI [facility] [place] 10/09/20 Office Visit Oswaldo Serrano, MD [facility] 09/16/20 Telemedicine Oswaldo Serrano, [facility] 07/18/20 Office Visit Connor Yuan APN, YUDI [facility] [place] 07/11/20 Telemedicine Connor Yuan APN, YUDI [facility] 06/09/20 Office Visit Oswaldo Serrano, [facility] 05/29/20 Telemedicine Oswaldo Serrano, [facility] [place] 04/07/20 Office Visit Connor Yuan APN, YUDI [facility] 03/18/20 Telemedicine Oswaldo Serrano, [facility] Showing recent visits within past 460 days with a meds authorizing provider and meeting all other requirements Future Appointments No visits were found meeting these conditions. Showing future appointments within next 90 days with a meds authorizing provider and meeting all other requirements RSMAN documented in this encounter Plan of Treatment Upcoming Encounters Date Type Department Care Team (Late st Contact Info) Description 07/17/2025 2:45 PM CDT Office Visit [facility] Medical [facility] - Family Medicine - [place] [address] [place] [address] Oswaldo Serrano MD #[address] [address] 07/22/2025 2:30 PM CDT Office Visit [facility] - Endocrinology - [place] [address] [place] [address] Ok Jorge MD [address] [address] 07/30/2025 2:45 PM CDT Office Visit [facility] [address] [place] [address] Orlin Urbina APRN, HAIRSPRING TRUING INSPECTOR [address] [place] [address] documented as of this encounter Visit Diagnoses Not on filedocumented in this encounter Additional Health Concerns Infection Onset Date Last Indicated Resolved Time COVID - 19 07/28/2021 07/29/2021 08/17/2021 12:1 6 AM STEERSMAN Assessment Noted Time PHQ-9 Depression Total Score: 2 07/18/20 4:26 PM CDT documented as of this encounter Care Teams Exhibit Designer Relationship Specialty Start Date End Date Oswaldo Serrano MD #[address] [address] PCP - General Family Medicine 05/19/17 Angel Crowe DPM #[address] [address] Consulting Physician Podiatry 06/16/17 Mora Fritz Behavioral Health Navigator 06/15/18 Ok Jorge MD #[address] [address] Consulting Physician Endocrinology 05/12/22 Orlin Urbina, CONCRETE BATCHING PLANT OPERATOR, HAIRSPRING TRUING INSPECTOR [address] [place] [address] Nurse Practitioner Advanced Practice Nurse 11/09/22 documented as of this encounter
--- OUTSIDE RECORDS SUMMARY | 2025-06-07 17:59 | XMS_ITS | Encounter Summary ---
Author Organization [facility] Address [address] [place] [address] Phone Care Team Providers Care Chiller Technician Name Role Phone Oswaldo Serrano MD Primary Care Provider [phone] Angel Crowe DPCiara Unavailable [phone] Mora Fritz Unavailable Unavailable Ok Jorge MD Unavailable Orlin Urbina APRN, GREENHOUSE FLORIST Unavailable [phone] Reason for Visit * Reason Comments Medication Refill Encounter Details Date Type Department Care Team (Late st Contact Info) Description 07/15/2023 Refill [facility] - [facility] Medicine - [place] [address] [place] [address] Oswaldo Serrano MD #[address] [address] Medication Refill Social History Tobacco Use Types [...] [place] 08/26/22 Office Visit Connor Yuan APRN, GREENHOUSE FLORIST [facility] Showing recent visits within past 365 [...] [facility] - Family Medicine [facility] #[address] [place] [address] Oswaldo Serrano MD #2 [facility] [address] [place] [address] 07/22/2025 2:30 PM CDT Office Visit [facility] Endocrinology [facility] #2 [place] [address] Ok Jorge MD #[address] [place] [address] 07/30/2025 2:45 PM CDT Office Visit [facility] #[address] [place] [address] Orlin Urbina APRN, YUDI [address] [place] [address] documented as of this encounter Visit Diagnoses Diagnosis Chronic congestive heart failure, unspecified heart failure type (HCC) documented in this encounter Additional Health Concerns Assessment Noted Time PHQ-9 Depression Total Score: 0 10/14/19 23 11:00 AM DAIRY BACTERIOLOGIST documented as of this encounter Care Teams Chiller Technician Relationship Specialty Start Date End Date Oswaldo Serrano MD #[address] [address] PCP - General Family Medicine 05/19/17 Angel Crowe DPM #2 [facility] [address] [place] [address] Consulting Physician Podiatry 06/16/17 Mora Fritz Behavioral Health Navigator 06/15/18 Ok Jorge MD #2 [facility] [address] [place] [address] Consulting Physician Endocrinology 05/12/22 Orlin Urbina APRN, GREENHOUSE FLORIST [address] [place] [address] Nurse Practitioner Advanced Practice Nurse 11/09/22 documented as of this encounter
--- OUTSIDE RECORDS SUMMARY | 2025-06-07 17:59 | XMS_ITS | Clinical Summary ---
Author Organization [facility] Address [address] [place] [address] Care Team Providers Care Backup Engineer Name Role Phone Oswaldo Serrano MD Primary Care Provider [phone] Pastora Flores MD Unavailable Sandro Hong MD Unavailable Juanis Lo MD Unavailable Allergies Active Allergy Reactions Criticality [...] (20 mg total) by mouth daily Active docusate sodium (COLACE) 100 mg capsule Take 1 capsule (100 mg total) by mouth 2 (two) times a day 7 Active Gemtesa 75 mg tablet Take 1 tablet by mouth daily Active multivit fuvomyld-nfou-RX -calcium (THERA-M) 9 mg iron-400 mcg tablet [...] times a day. 100 each 4 Active lidocaine (LMX) 4 % cream Apply 2.5 g (1 Application total) topically daily 30 g 2 4 027 Active metoprolol XL (TOPROL-XL) 100 mg 24 hr tablet Take 1 tablet (100 mg total) by mouth daily 90 tablet 4 Active lidocaine (ASPERCREME) 4 % adhesive patch,medicated Place 1 patch on the skin daily as needed Active polyethylene glycol (MIRALAX) 17 gram packetIndication s:constipation Take 1 packet (17 g total) by mouth daily as needed for constipation Active diphenhydrAMINE HCL 2 % gel Apply topically every 6 (six) hours as needed Active acetaminophen (TYLENOL) 500 mg tablet Take 1 tablet (500 mg total) by mouth every 6 (six) hours as needed for pain Active empagliflozin (JARDIANCE) 10 mg tabletIndication s:Heart Failure Take 1 tablet (10 mg total) by mouth daily 30 tablet 5 Active hydrOXYzine (ATARAX) 25 mg tablet Take 1 tablet (25 mg total) by mouth every 4 (four) hours as needed for itching or anxiety 60 tablet 5 Active cefadroxil (DURICEF) 500 mg capsuleIndicatio ns:MSSA BSI, in conjuction with Dalbavancin, 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 Take 1 capsule (500 mg total) by mouth 2 (two) times a day for 300 doses 5 025 Active furosemide (LASIX) 80 mg tablet Take 1 tablet (80 mg total) by mouth 2 (two) times a day 5 026 Active spironolactone (ALDACTONE) 25 mg tablet Take 1 tablet (25 mg total) by mouth daily 5 Active rivaroxaban (XARELTO) 15 mg tabletIndication s:atrial fibrillation Take 1 tablet (15 mg total) by mouth daily with dinner Active sacubitriL-valsa rtan (ENTRESTO) 24-26 mg tabletIndication s:chronic heart failure Take 0.5 tablets by mouth 2 (two) times a day 5 Active Active Problems Problem Noted Date Diagnosed Date Hyperbilirubinemia 02/26/2025 Assessment & Plan (03/05/2025 10:58 AM CDT): Elevated LFTs with Alk phos 351, AST 58, ALT 28, T bili 6.2, PT INR elevated to 6.9 R factor indicating cholestatic injury. Patient has a history of chronic hepatitis C. Liver biopsy in 2017 showed chronic hepatitis consistent with hepatitis C, portal/lobular inflammatory activity grade 1, fibrosis stage I. Architectural changes were consistent with congestive heart failure. Hepatitis C RNA was negative this time. Liver doppler on 02/24/2025 showed severe tricuspid regurgitation including distended hepatic veins and inferior vena cava with severely diminished/reverse S wave in the hepatic veins. RUQ US on 03/04/2025 showed no abnormalities or biliary duct dilatation. Liver function test abnormalities include elevated Alk Phos and hyperbilirubinemia. Liver synthetic function was also impaired (elevated INR and decreased albumin). 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 It is challenging to evaluate if patient's mental status is impaired (whether hepatic encephalopathy) iso baseline intellectual disability. Generally, the liver function labs were not worsening. - CTM liver function labs - Outpatient hepatology follow-up Assessment & Plan (03/04/2025 10:24 AM CDT): Elevated LFTs with Alk phos 351, AST 58, ALT 28, T bili 6.2, PT INR elevated to 6.9 R factor indicating cholestatic injury. Patient has a history of chronic hepatitis C. Liver biopsy in 2017 showed chronic hepatitis consistent with hepatitis C, portal/lobular inflammatory activity grade 1, fibrosis stage I. Architectural changes were consistent with congestive heart failure. Hepatitis C RNA was negative this time. Liver doppler on 02/24/2025 showed severe tricuspid regurgitation including distended hepatic veins and inferior vena cava with severely diminished/reverse S wave in the hepatic veins. Liver function test abnormalities include elevated Alk Phos and hyperbilirubinemia. Liver synthetic function was also impaired (elevated INR and decreased albumin). 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 It is difficult to evaluate if patient's mental status is impaired (whether hepatic encephalopathy) iso baseline intellectual disability. - CTM liver function labs - RUQ ultrasound - Outpatient hepatology follow-up Assessment & Plan (03/03/2025 10:56 AM CDT): Elevated LFTs with Alk phos 351, AST 58, ALT 28, T bili 6.2, PT INR elevated to 6.9 R factor indicating cholestatic injury. Patient has a history of chronic hepatitis C. Liver biopsy in 2017 showed chronic hepatitis consistent with hepatitis C, portal/lobular inflammatory activity grade 1, fibrosis stage I. Architectural changes were consistent with congestive heart failure. Hepatitis C RNA was negative this time. Liver doppler on 02/24/2025 showed severe tricuspid regurgitation including distended hepatic veins and inferior vena cava with severely diminished/reverse S wave in the hepatic veins. Liver function test abnormalities, including elevated Alk Phos and hyperbilirubinemia. Liver synthetic function was also impaired (elevated INR and decreased albumin). 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 It is difficult to evaluate if patient's mental status is impaired (whether hepatic encephalopathy) iso baseline intellectual disability. - CTM liver function labs - Liver ultrasound - Consider hepatology consult Assessment & Plan (03/02/2025 2:33 PM CDT): Elevated LFTs with Alk phos 351, AST 58, ALT 28, T bili 6.2, PT INR elevated to 6.9 R factor indicating cholestatic injury. Would consider MASLD given comorbidites including obesity, DM, though would also consider congestive hepatopathy as well. Liver ultrasound on 02/24/2025 showed severe tricuspid regurgitation including distended hepatic veins and inferior vena cava with severely diminished/reverse S wave in the hepatic veins. Liver function test abnormalities likely 2/2 congestive hepatopathy. AST, ALT, and bilirubin levels continued to improve while she was receiving aggressive diuresis. - CTM liver function labs Assessment & Plan (03/01/2025 7:35 AM CDT): Elevated LFTs with Alk phos 351, AST 58, ALT 28, T bili 6.2, PT INR elevated to 6.9 R factor indicating cholestatic injury. Would consider MASLD given comorbidites including obesity, DM, though would also consider congestive hepatopathy as well. Liver ultrasound on 02/24/2025 showed severe tricuspid regurgitation including distended hepatic veins and inferior vena cava with severely diminished/reverse S wave in the hepatic veins. Liver function test abnormalities likely 2/2 congestive hepatopathy. AST, ALT, and bilirubin levels continued to improve while she was receiving aggressive diuresis. - CTM liver function labs Assessment & Plan (02/28/2025 8:44 AM CDT): Elevated LFTs with Alk phos 351, AST 58, ALT 28, T bili 6.2, PT INR elevated to 6.9 R factor indicating cholestatic injury. Would consider MASLD given comorbidites including obesity, DM, though would also consider congestive hepatopathy as well. Liver ultrasound on 02/24/2025 showed severe tricuspid regurgitation including distended hepatic veins and inferior vena cava with severely diminished/reverse S wave in the hepatic veins. Liver function test abnormalities likely 2/2 congestive hepatopathy. AST, ALT, and bilirubin levels continued to improve while she was receiving aggressive diuresis. - CTM liver function labs Assessment & Plan (02/27/2025 8:12 AM CDT): Elevated LFTs with Alk phos 351, AST 58, ALT 28, T bili 6.2, PT INR elevated to 6.9 R factor indicating cholestatic injury. Would consider MASLD given comorbidites including obesity, DM, though would also consider congestive hepatopathy as well. Liver ultrasound on 02/24/2025 showed severe tricuspid regurgitation including distended hepatic veins and inferior vena cava with severely diminished/reverse S wave in the hepatic veins. Liver function test abnormalities likely 2/2 congestive hepatopathy. AST, ALT, and bilirubin levels continued to improve while she was receiving aggressive diuresis. - CTM liver function labs Assessment & Plan (02/26/2025 11:04 AM CDT): Elevated LFTs with Alk phos 351, AST 58, ALT 28, T bili 6.2, PT INR elevated to 6.9 R factor indicating cholestatic injury. Would consider MASLD given comorbidites including obesity, DM, though would also consider congestive hepatopathy as well. Liver ultrasound on 02/24/2025 showed severe tricuspid regurgitation including distended hepatic veins and inferior vena cava with severely diminished/reverse S wave in the hepatic veins. Liver function test abnormalities likely 2/2 congestive hepatopathy. AST, ALT, and bilirubin levels continued to improve while she was receiving aggressive diuresis. - CTM liver function labs Drowsiness 02/25/2025 Assessment & Plan (03/05/2025 7:31 AM CDT): Due to TBI at age 11. Lives independently, receives support from sisters who live near by who are also POAs. Occasionally becomes agitated in the hospital. Oriented to self, place, not date at baseline. At outside hospital, before this transferral to [facility], she was agitated requiring IV Haldol 5. She presented with drowsiness on admission. She was found to have elevated INR (over 6) with elevated liver enzymes and bili. Suspected that liver condition might contribute to her drowsiness. Ammonia was normal. Lactulose was started. Patient's mental status improved gradually. She developed another episode of agitation and on 02/27/2025 in AM requiring IV haloperidol 5 mg once. Mental status returned to baseline on 02/28/2025. - Avoid medications that potential cause AMS Assessment & Plan (03/04/2025 7:19 AM CDT): Due to TBI at age 11. Lives independently, receives support from sisters who live near by who are also POAs. Occasionally becomes agitated in the hospital. Oriented to self, place, not date at baseline. At outside hospital, before this transferral to [facility], she was agitated requiring IV Haldol 5. She presented with drowsiness on admission. She was found to have elevated INR (over 6) with elevated liver enzymes and bili. Suspected that liver condition might contribute to her drowsiness. Ammonia was normal. Lactulose was started. Patient's mental status improved gradually. She developed another episode of agitation and on 02/27/2025 in AM requiring IV haloperidol 5 mg once. Mental status returned to baseline on 02/28/2025. - Avoid medications that potential cause AMS Assessment & Plan (03/03/2025 7:19 AM CDT): Due to TBI at age 11. Lives independently, receives support from sisters who live near by who are also POAs. Occasionally becomes agitated in the hospital. Oriented to self, place, not date at baseline. At outside hospital, before this transferral to [facility], she was agitated requiring IV Haldol 5. She presented with drowsiness on admission. She was found to have elevated INR (over 6) with elevated liver enzymes and bili. Suspected that liver condition might contribute to her drowsiness. Ammonia was normal. Lactulose was started. Patient's mental status improved gradually. She developed another episode of agitation and on 02/27/2025 in AM requiring IV haloperidol 5 mg once. Mental status returned to baseline on 02/28/2025. - Avoid medications that potential cause AMS Assessment & Plan (03/02/2025 2:33 PM CDT): Due to TBI at age 11. Lives independently, receives support from sisters who live near by who are also POAs. Occasionally becomes agitated in the hospital. Oriented to self, place, not date at baseline. At outside hospital, before this transferral to [facility], she was agitated requiring IV Haldol 5. She presented with drowsiness on admission. She was found to have elevated INR (over 6) with elevated liver enzymes and bili. Suspected that liver condition might contribute to her drowsiness. Ammonia was normal. Lactulose was started. Patient's mental status improved gradually. She developed another episode of agitation and on 02/27/2025 in AM requiring IV haloperidol 5 mg once. Mental status returned to baseline on 02/28/2025. - Avoid medications that potential cause AMS Assessment & Plan (03/01/2025 7:35 AM CDT): Due to TBI at age 11. Lives independently, receives support from sisters who live near by who are also POAs. Occasionally becomes agitated in the hospital. Oriented to self, place, not date at baseline. At outside hospital, before this transferral to [facility], she was agitated requiring IV Haldol 5. She presented with drowsiness on admission. She was found to have elevated INR (over 6) with elevated liver enzymes and bili. Suspected that liver condition might contribute to her drowsiness. Ammonia was normal. Lactulose was started. Patient's mental status improved gradually. She developed another episode of agitation and on 02/27/2025 in AM requiring IV haloperidol 5 mg once. Mental status returned to baseline on 02/28/2025. - Avoid medications that potential cause AMS Assessment & Plan (02/28/2025 3:45 PM CDT): Due to TBI at age 11. Lives independently, receives support from sisters who live near by who are also POAs. Occasionally becomes agitated in the hospital. Oriented to self, place, not date at baseline. At outside hospital, before this transferral to [facility], she was agitated requiring IV Haldol 5. She presented with drowsiness on admission. She was found to have elevated INR (over 6) with elevated liver enzymes and bili. Suspected that liver condition might contribute to her drowsiness. Ammonia was normal. Lactulose was started. Patient's mental status improved gradually. She developed another episode of agitation and on 02/27/2025 in AM requiring IV haloperidol 5 mg once. Mental status returned to baseline on 02/28/2025. - Avoid medications that potential cause AMS Assessment & Plan (02/27/2025 12:52 PM CDT): Due to TBI at age 11. Lives independently, receives support from sisters who live near by who are also POAs. Occasionally becomes agitated in the hospital. Oriented to self, place, not date at baseline. At outside hospital, before this transferral to [facility], she was agitated requiring IV Haldol 5. She presented with drowsiness on admission. She was found to have elevated INR (over 6) with elevated liver enzymes and bili. Suspected that liver condition might contribute to her drowsiness. Ammonia was normal. Lactulose was started. Patient's mental status improved gradually. She developed another episode of agitation and on 02/27/2025 in AM. - Avoid medications that potential cause AMS Assessment & Plan (02/26/2025 7:54 AM CDT): Due to TBI at age 11. Lives independently, receives support from sisters who live near by who are also POAs. Occasionally becomes agitated in the hospital. Oriented to self, place, not date at baseline. She presented with drowsiness on admission. She was found to have elevated INR (over 6) with elevated liver enzymes and bili. Suspected that liver condition might contribute to her drowsiness. Ammonia was normal. Lactulose was started. She mentated better the day after. Assessment & Plan (02/25/2025 12:44 PM CDT): Due to TBI at age 11. Lives independently, receives support from sisters who live near by who are also POAs. Occasionally becomes agitated in the hospital. Oriented to self, place, not date at baseline. She presented with drowsiness on admission. She was found to have elevated INR (over 6) with elevated liver enzymes and bili. Suspected that liver condition might contribute to her drowsiness. Ammonia was normal. Lactulose was started. She mentated better the day after. 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 AICD Removed in 07/2024, started cefadroxil daily. 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 AICD Removed in 07/2024, started cefadroxil daily. 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 AICD Removed in 07/2024, started cefadroxil daily Pruritus 02/24/2025 Assessment & Plan (03/05/2025 7:31 AM CDT): Noted to have this in 10/2024 and dc'd jardiance due to concern for side effect, though persists. With small circular healing lesions seen over arms, legs. - hydroxyzine 25 q12h prn - diphenhydramine gel prn Assessment & Plan (03/04/2025 7:19 AM CDT): Noted to have this in 10/2024 and dc'd jardiance due to concern for side effect, though persists. With small circular healing lesions seen over arms, legs. - hydroxyzine 25 q12h prn - diphenhydramine gel prn Assessment & Plan (03/03/2025 7:19 AM CDT): Noted to have this in 10/2024 and dc'd jardiance due to concern for side effect, though persists. With small circular healing lesions seen over arms, legs. - hydroxyzine 25 q12h prn - diphenhydramine gel prn Assessment & Plan (03/02/2025 2:33 PM CDT): Noted to have this in 10/2024 and dc'd jardiance due to concern for side effect, though persists. With small circular healing lesions seen over arms, legs. - hydroxyzine 25 q12h prn - diphenhydramine gel prn Assessment & Plan (03/01/2025 7:35 AM CDT): Noted to have this in 10/2024 and dc'd jardiance due to concern for side effect, though persists. With small circular healing lesions seen over arms, legs. - hydroxyzine 25 q12h prn - diphenhydramine gel prn Assessment & Plan (02/28/2025 8:44 AM CDT): Noted to have this in 10/2024 and dc'd jardiance due to concern for side effect, though persists. With small circular healing lesions seen over arms, legs. - hydroxyzine 25 q12h prn - diphenhydramine gel prn Assessment & Plan (02/27/2025 12:52 PM CDT): Noted to have this in 10/2024 and dc'd jardiance due to concern for side effect, though persists. With small circular healing lesions seen over arms, legs. - hydroxyzine 25 q12h prn - diphenhydramine gel prn Assessment & Plan (02/26/2025 7:54 AM CDT): Noted to have this in 10/2024 and dc'd jardiance due to concern for side effect, though persists. With small circular healing lesions seen over arms, legs. - hydroxyzine 25 q4hr prn - diphenhydramine gel prn Assessment & Plan (02/25/2025 11:56 AM CDT): Noted to have this in 10/2024 and dc'd jardiance due to concern for side effect, though persists. With small circular healing lesions seen over arms, legs. - hydroxyzine 25 q4hr prn - diphenhydramine gel prn Assessment & Plan (02/24/2025 5:36 AM CDT): Noted to have this in 10/2024 and dc'd jardiance due to concern for side effect, though persists. With small circular healing lesions seen over arms, legs. - hydroxyzine 25 q4hr prn - diphenhydramine gel prn Transaminitis 02/24/2025 Assessment & Plan (03/05/2025 10:58 AM CDT): Elevated LFTs with Alk phos 351, AST 58, ALT 28, T bili 6.2, PT INR elevated to 6.9 R factor indicating cholestatic injury. Patient has a history of chronic hepatitis C. Liver biopsy in 2017 showed chronic hepatitis consistent with hepatitis C, portal/lobular inflammatory activity grade 1, fibrosis stage I. Architectural changes were consistent with congestive heart failure. Hepatitis C RNA was negative this time. Liver doppler on 02/24/2025 showed severe tricuspid regurgitation including distended hepatic veins and inferior vena cava with severely diminished/reverse S wave in the hepatic veins. RUQ US on 03/04/2025 showed no abnormalities or biliary duct dilatation. Liver function test abnormalities include elevated Alk Phos and hyperbilirubinemia. Liver synthetic function was also impaired (elevated INR and decreased albumin). 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 It is challenging to evaluate if patient's mental status is impaired (whether hepatic encephalopathy) iso baseline intellectual disability. Generally, the liver function labs were not worsening. - CTM liver function labs - Outpatient hepatology follow-up Assessment & Plan (03/04/2025 10:24 AM CDT): Elevated LFTs with Alk phos 351, AST 58, ALT 28, T bili 6.2, PT INR elevated to 6.9 R factor indicating cholestatic injury. Patient has a history of chronic hepatitis C. Liver biopsy in 2017 showed chronic hepatitis consistent with hepatitis C, portal/lobular inflammatory activity grade 1, fibrosis stage I. Architectural changes were consistent with congestive heart failure. Hepatitis C RNA was negative this time. Liver doppler on 02/24/2025 showed severe tricuspid regurgitation including distended hepatic veins and inferior vena cava with severely diminished/reverse S wave in the hepatic veins. Liver function test abnormalities include elevated Alk Phos and hyperbilirubinemia. Liver synthetic function was also impaired (elevated INR and decreased albumin). 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 It is difficult to evaluate if patient's mental status is impaired (whether hepatic encephalopathy) iso baseline intellectual disability. - CTM liver function labs - RUQ ultrasound - Outpatient hepatology follow-up Assessment & Plan (03/03/2025 10:56 AM CDT): Elevated LFTs with Alk phos 351, AST 58, ALT 28, T bili 6.2, PT INR elevated to 6.9 R factor indicating cholestatic injury. Patient has a history of chronic hepatitis C. Liver biopsy in 2017 showed chronic hepatitis consistent with hepatitis C, portal/lobular inflammatory activity grade 1, fibrosis stage I. Architectural changes were consistent with congestive heart failure. Hepatitis C RNA was negative this time. Liver doppler on 02/24/2025 showed severe tricuspid regurgitation including distended hepatic veins and inferior vena cava with severely diminished/reverse S wave in the hepatic veins. Liver function test abnormalities, including elevated Alk Phos and hyperbilirubinemia. Liver synthetic function was also impaired (elevated INR and decreased albumin). 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 It is difficult to evaluate if patient's mental status is impaired (whether hepatic encephalopathy) iso baseline intellectual disability. - CTM liver function labs - Liver ultrasound - Consider hepatology consult Assessment & Plan (03/02/2025 2:33 PM CDT): Elevated LFTs with Alk phos 351, AST 58, ALT 28, T bili 6.2, PT INR elevated to 6.9 R factor indicating cholestatic injury. Would consider MASLD given comorbidites including obesity, DM, though would also consider congestive hepatopathy as well. Liver ultrasound on 02/24/2025 showed severe tricuspid regurgitation including distended hepatic veins and inferior vena cava with severely diminished/reverse S wave in the hepatic veins. Liver function test abnormalities likely 2/2 congestive hepatopathy. AST, ALT, and bilirubin levels continued to improve while she was receiving aggressive diuresis. - CTM liver function labs Assessment & Plan (03/01/2025 7:35 AM CDT): Elevated LFTs with Alk phos 351, AST 58, ALT 28, T bili 6.2, PT INR elevated to 6.9 R factor indicating cholestatic injury. Would consider MASLD given comorbidites including obesity, DM, though would also consider congestive hepatopathy as well. Liver ultrasound on 02/24/2025 showed severe tricuspid regurgitation including distended hepatic veins and inferior vena cava with severely diminished/reverse S wave in the hepatic veins. Liver function test abnormalities likely 2/2 congestive hepatopathy. AST, ALT, and bilirubin levels continued to improve while she was receiving aggressive diuresis. - CTM liver function labs Assessment & Plan (02/28/2025 8:44 AM CDT): Elevated LFTs with Alk phos 351, AST 58, ALT 28, T bili 6.2, PT INR elevated to 6.9 R factor indicating cholestatic injury. Would consider MASLD given comorbidites including obesity, DM, though would also consider congestive hepatopathy as well. Liver ultrasound on 02/24/2025 showed severe tricuspid regurgitation including distended hepatic veins and inferior vena cava with severely diminished/reverse S wave in the hepatic veins. Liver function test abnormalities likely 2/2 congestive hepatopathy. AST, ALT, and bilirubin levels continued to improve while she was receiving aggressive diuresis. - CTM liver function labs Assessment & Plan (02/27/2025 8:12 AM CDT): Elevated LFTs with Alk phos 351, AST 58, ALT 28, T bili 6.2, PT INR elevated to 6.9 R factor indicating cholestatic injury. Would consider MASLD given comorbidites including obesity, DM, though would also consider congestive hepatopathy as well. Liver ultrasound on 02/24/2025 showed severe tricuspid regurgitation including distended hepatic veins and inferior vena cava with severely diminished/reverse S wave in the hepatic veins. Liver function test abnormalities likely 2/2 congestive hepatopathy. AST, ALT, and bilirubin levels continued to improve while she was receiving aggressive diuresis. - CTM liver function labs Assessment & Plan (02/26/2025 11:04 AM CDT): Elevated LFTs with Alk phos 351, AST 58, ALT 28, T bili 6.2, PT INR elevated to 6.9 R factor indicating cholestatic injury. Would consider MASLD given comorbidites including obesity, DM, though would also consider congestive hepatopathy as well. Liver ultrasound on 02/24/2025 showed severe tricuspid regurgitation including distended hepatic veins and inferior vena cava with severely diminished/reverse S wave in the hepatic veins. Liver function test abnormalities likely 2/2 congestive hepatopathy. AST, ALT, and bilirubin levels continued to improve while she was receiving aggressive diuresis. - CTM liver function labs Assessment & Plan (02/25/2025 12:44 PM CDT): Elevated LFTs with Alk phos 351, AST 58, ALT 28, T bili 6.2, PT INR elevated to 6.9 R factor indicating cholestatic injury. Would consider MASLD given comorbidites including obesity, DM, though would also consider congestive hepatopathy as well. Liver ultrasound on 02/24/2025 showed severe tricuspid regurgitation including distended hepatic veins and inferior vena cava with severely diminished/reverse S wave in the hepatic veins. Liver function test abnormalities likely 2/2 congestive hepatopathy. - CTM liver function labs Assessment & Plan (02/24/2025 7:26 AM CDT): Elevated LFTs with Alk phos 351, AST 58, ALT 28, T bili 6.2, PT INR elevated 69.4/6.19. R factor indicating cholestatic injury. Would consider MASLD given comorbidites including obesity, DM, though would also consider congestive hepatopathy as well. - liver dopplers - d bili MARK (acute kidney injury) 02/24/2025 Assessment & Plan (03/05/2025 7:31 AM CDT): On CKD. Cr 1.31 (b/l 0.9). Likely cardiorenal. Creatinine continued to recover during this hospital admission. - CTM Assessment & Plan (03/04/2025 7:19 AM CDT): On CKD. Cr 1.31 (b/l 0.9). Likely cardiorenal. Creatinine continued to recover during this hospital admission. - CTM Assessment & Plan (03/03/2025 7:19 AM CDT): On CKD. Cr 1.31 (b/l 0.9). Likely cardiorenal. Creatinine continued to recover during this hospital admission. - CTM Assessment & Plan (03/02/2025 2:33 PM CDT): On CKD. Cr 1.31 (b/l 0.9). Likely cardiorenal. Creatinine continued to recover during this hospital admission. - CTM Assessment & Plan (03/01/2025 7:35 AM CDT): On CKD. Cr 1.31 (b/l 0.9). Likely cardiorenal. Creatinine continued to recover during this hospital admission. - CTM Assessment & Plan (02/28/2025 8:44 AM CDT): On CKD. Cr 1.31 (b/l 0.9). Likely cardiorenal. Creatinine continued to recover during this hospital admission. - CTM Assessment & Plan (02/27/2025 12:52 PM CDT): On CKD. Cr 1.31 (b/l 0.9). Likely cardiorenal. Creatinine continued to recover during this hospital admission. - CTM Assessment & Plan (02/26/2025 7:54 AM CDT): On CKD. Cr 1.31 (b/l 0.9). Likely cardiorenal. - ctm Assessment & Plan (02/25/2025 11:56 AM CDT): On CKD. Cr 1.31 (b/l 0.9). Likely cardiorenal. - ctm Assessment & Plan (02/24/2025 5:36 AM CDT): On CKD. Cr 1.31 (b/l 0.9). Likely cardiorenal. - ctm Intellectual disability 02/24/2025 Assessment & Plan (03/05/2025 7:31 AM CDT): Due to TBI at age 11. Lives independently, receives support from sisters who live near by who are also POAs. Occasionally becomes agitated in the hospital. Oriented to self, place, not date at baseline. At outside hospital, before this transferral to [facility], she was agitated requiring IV Haldol 5. She presented with drowsiness on admission. She was found to have elevated INR (over 6) with elevated liver enzymes and bili. Suspected that liver condition might contribute to her drowsiness. Ammonia was normal. Lactulose was started. Patient's mental status improved gradually. She developed another episode of agitation and on 02/27/2025 in AM requiring IV haloperidol 5 mg once. Mental status returned to baseline on 02/28/2025. - Avoid medications that potential cause AMS Assessment & Plan (03/04/2025 7:19 AM CDT): Due to TBI at age 11. Lives independently, receives support from sisters who live near by who are also POAs. Occasionally becomes agitated in the hospital. Oriented to self, place, not date at baseline. At outside hospital, before this transferral to [facility], she was agitated requiring IV Haldol 5. She presented with drowsiness on admission. She was found to have elevated INR (over 6) with elevated liver enzymes and bili. Suspected that liver condition might contribute to her drowsiness. Ammonia was normal. Lactulose was started. Patient's mental status improved gradually. She developed another episode of agitation and on 02/27/2025 in AM requiring IV haloperidol 5 mg once. Mental status returned to baseline on 02/28/2025. - Avoid medications that potential cause AMS Assessment & Plan (03/03/2025 7:19 AM CDT): Due to TBI at age 11. Lives independently, receives support from sisters who live near by who are also POAs. Occasionally becomes agitated in the hospital. Oriented to self, place, not date at baseline. At outside hospital, before this transferral to [facility], she was agitated requiring IV Haldol 5. She presented with drowsiness on admission. She was found to have elevated INR (over 6) with elevated liver enzymes and bili. Suspected that liver condition might contribute to her drowsiness. Ammonia was normal. Lactulose was started. Patient's mental status improved gradually. She developed another episode of agitation and on 02/27/2025 in AM requiring IV haloperidol 5 mg once. Mental status returned to baseline on 02/28/2025. - Avoid medications that potential cause AMS Assessment & Plan (03/02/2025 2:33 PM CDT): Due to TBI at age 11. Lives independently, receives support from sisters who live near by who are also POAs. Occasionally becomes agitated in the hospital. Oriented to self, place, not date at baseline. At outside hospital, before this transferral to [facility], she was agitated requiring IV Haldol 5. She presented with drowsiness on admission. She was found to have elevated INR (over 6) with elevated liver enzymes and bili. Suspected that liver condition might contribute to her drowsiness. Ammonia was normal. Lactulose was started. Patient's mental status improved gradually. She developed another episode of agitation and on 02/27/2025 in AM requiring IV haloperidol 5 mg once. Mental status returned to baseline on 02/28/2025. - Avoid medications that potential cause AMS Assessment & Plan (03/01/2025 7:35 AM CDT): Due to TBI at age 11. Lives independently, receives support from sisters who live near by who are also POAs. Occasionally becomes agitated in the hospital. Oriented to self, place, not date at baseline. At outside hospital, before this transferral to [facility], she was agitated requiring IV Haldol 5. She presented with drowsiness on admission. She was found to have elevated INR (over 6) with elevated liver enzymes and bili. Suspected that liver condition might contribute to her drowsiness. Ammonia was normal. Lactulose was started. Patient's mental status improved gradually. She developed another episode of agitation and on 02/27/2025 in AM requiring IV haloperidol 5 mg once. Mental status returned to baseline on 02/28/2025. - Avoid medications that potential cause AMS Assessment & Plan (02/28/2025 3:45 PM CDT): Due to TBI at age 11. Lives independently, receives support from sisters who live near by who are also POAs. Occasionally becomes agitated in the hospital. Oriented to self, place, not date at baseline. At outside hospital, before this transferral to [facility], she was agitated requiring IV Haldol 5. She presented with drowsiness on admission. She was found to have elevated INR (over 6) with elevated liver enzymes and bili. Suspected that liver condition might contribute to her drowsiness. Ammonia was normal. Lactulose was started. Patient's mental status improved gradually. She developed another episode of agitation and on 02/27/2025 in AM requiring IV haloperidol 5 mg once. Mental status returned to baseline on 02/28/2025. - Avoid medications that potential cause AMS Assessment & Plan (02/27/2025 12:52 PM CDT): Due to TBI at age 11. Lives independently, receives support from sisters who live near by who are also POAs. Occasionally becomes agitated in the hospital. Oriented to self, place, not date at baseline. At outside hospital, before this transferral to [facility], she was agitated requiring IV Haldol 5. She presented with drowsiness on admission. She was found to have elevated INR (over 6) with elevated liver enzymes and bili. Suspected that liver condition might contribute to her drowsiness. Ammonia was normal. Lactulose was started. Patient's mental status improved gradually. She developed another episode of agitation and on 02/27/2025 in AM. - Avoid medications that potential cause AMS Assessment & Plan (02/26/2025 7:54 AM CDT): Due to TBI at age 11. Lives independently, receives support from sisters who live near by who are also POAs. Occasionally becomes agitated in the hospital. Oriented to self, place, not date at baseline. She presented with drowsiness on admission. She was found to have elevated INR (over 6) with elevated liver enzymes and bili. Suspected that liver condition might contribute to her drowsiness. Ammonia was normal. Lactulose was started. She mentated better the day after. Assessment & Plan (02/25/2025 12:44 PM CDT): Due to TBI at age 11. Lives independently, receives support from sisters who live near by who are also POAs. Occasionally becomes agitated in the hospital. Oriented to self, place, not date at baseline. She presented with drowsiness on admission. She was found to have elevated INR (over 6) with elevated liver enzymes and bili. Suspected that liver condition might contribute to her drowsiness. Ammonia was normal. Lactulose was started. She mentated better the day after. Assessment & Plan (02/24/2025 5:36 AM CDT): Due to TBI at age 11. Lives independently, receives support from sisters who live near by who are also POAs. Occasionally becomes agitated in the hospital. Oriented to self, place, not date at baseline. Severe tricuspid regurgitation 02/24/2025 Assessment & Plan (03/05/2025 7:31 AM CDT): CTS was consulted during Oct 2024 admission and mentioned not candidate for surgery due to intellectual disability and will not do well postop in ICU with tubes. She was referred to Valve clinic here at [facility]. However, she did not follow up. Valve team was consulted during this hospitalization, recommending clinic follow-up without transcatheter tricuspid valve interventions since patient is a poor candidate due to chronic tricuspid valve endocarditis and severe non-ischemic cardiomyopathy with LVEF 25%. TTE on 02/25/2025 showed LVEF 25%, mod TR, mild RV hypokinesis, and distended IVC. It appeared that TR improved with optimized fluid status. Patient will follow up with valve team as outpatient. Assessment & Plan (03/04/2025 7:19 AM CDT): CTS was consulted during Oct 2024 admission and mentioned not candidate for surgery due to intellectual disability and will not do well postop in ICU with tubes. She was referred to Valve clinic here at [facility]. However, she did not follow up. Valve team was consulted during this hospitalization, recommending clinic follow-up without transcatheter tricuspid valve interventions since patient is a poor candidate due to chronic tricuspid valve endocarditis and severe non-ischemic cardiomyopathy with LVEF 25%. TTE on 02/25/2025 showed LVEF 25%, mod TR, mild RV hypokinesis, and distended IVC. It appeared that TR improved with optimized fluid status. Patient will follow up with valve team as outpatient. Assessment & Plan (03/03/2025 10:56 AM CDT): CTS was consulted during Oct 2024 admission and mentioned not candidate for surgery due to intellectual disability and will not do well postop in ICU with tubes. She was referred to Valve clinic here at [facility]. However, she did not follow up. Valve team was consulted during this hospitalization, recommending clinic follow-up without transcatheter tricuspid valve interventions since patient is a poor candidate due to chronic tricuspid valve endocarditis and severe non-ischemic cardiomyopathy with LVEF 25%. TTE on 02/25/2025 showed LVEF 25%, mod TR, mild RV hypokinesis, and distended IVC. It appeared that TR improved with optimized fluid status. Patient will follow up with valve team as outpatient. Assessment & Plan (03/02/2025 2:33 PM CDT): CTS was consulted during Oct 2024 admission and mentioned not candidate for surgery due to intellectual disability and will not do well postop in ICU with tubes. She was referred to Valve clinic here at [facility]. However, she did not follow up. Valve team was consulted during this hospitalization, recommending clinic follow-up without transcatheter tricuspid valve interventions since patient is a poor candidate due to chronic tricuspid valve endocarditis and severe non-ischemic cardiomyopathy with LVEF 25%. TTE on 02/25/2025 showed LVEF 25%, mod TR, mild RV hypokinesis, and distended IVC. It appeared that TR improved with optimized fluid status. Assessment & Plan (03/01/2025 7:35 AM CDT): CTS was consulted during Oct 2024 admission and mentioned not candidate for surgery due to intellectual disability and will not do well postop in ICU with tubes. She was referred to Valve clinic here at [facility]. However, she did not follow up. Valve team was consulted during this hospitalization, recommending clinic follow-up without transcatheter tricuspid valve interventions since patient is a poor candidate due to chronic tricuspid valve endocarditis and severe non-ischemic cardiomyopathy with LVEF 25%. TTE on 02/25/2025 showed LVEF 25%, mod TR, mild RV hypokinesis, and distended IVC. It appeared that TR improved with optimized fluid status. Assessment & Plan (02/28/2025 8:44 AM CDT): CTS was consulted during Oct 2024 admission and mentioned not candidate for surgery due to intellectual disability and will not do well postop in ICU with tubes. She was referred to Valve clinic here at [facility]. However, she did not follow up. Valve team was consulted during this hospitalization, recommending clinic follow-up without transcatheter tricuspid valve interventions since patient is a poor candidate due to chronic tricuspid valve endocarditis and severe non-ischemic cardiomyopathy with LVEF 25%. TTE on 02/25/2025 showed LVEF 25%, mod TR, mild RV hypokinesis, and distended IVC. It appeared that TR improved with optimized fluid status. Assessment & Plan (02/27/2025 12:52 PM CDT): CTS was consulted during Oct 2024 admission and mentioned not candidate for surgery due to intellectual disability and will not do well postop in ICU with tubes. She was referred to Valve clinic here at [facility]. However, she did not follow up. Valve team was consulted during this hospitalization, recommending clinic follow-up without transcatheter tricuspid valve interventions since patient is a poor candidate due to chronic tricuspid valve endocarditis and severe non-ischemic cardiomyopathy with LVEF 25%. TTE on 02/25/2025 showed LVEF 25%, mod TR, mild RV hypokinesis, and distended IVC. It appeared that TR improved with optimized fluid status. Assessment & Plan (02/26/2025 11:31 AM CDT): CTS was consulted during Oct 2024 admission and mentioned not candidate for surgery due to intellectual disability and will not do well postop in ICU with tubes. She was referred to Valve clinic here at [facility]. However, she did not follow up. Valve team was consulted during this hospitalization, recommending clinic follow-up without transcatheter tricuspid valve interventions since patient is a poor candidate due to chronic tricuspid valve endocarditis and severe non-ischemic cardiomyopathy with LVEF 25%. Assessment & Plan (02/25/2025 11:56 AM CDT): CTS was consulted during Oct 2024 admission and mentioned not candidate for surgery due to intellectual disability and will not do well postop in ICU with tubes. She was referred to Valve clinic here at [facility]. - Consult valve team for possible TR repair Assessment & Plan (02/24/2025 5:36 AM CDT): CTS was consulted during Oct 2024 admission and mentioned not candidate for surgery due to intellectual disability and will not do well postop in ICU with tubes. - Referred to Valve clinic here at [facility] Acute exacerbation of chronic heart failure 02/07 Assessment & Plan (03/05/2025 10:58 AM CDT): Presented to [place] ED for MAYS, orthopnea, difficulty mobilizing for 2-3 weeks. Her grounds and nursery specialist Dr. Flores increased lasix from 40 every day to BID, taking this with spironolactone without improvement. BNP elevation to 4300s, 1+ pitting edema, CTAP with cardiomegaly with right sided HF with pulm HTN, pleural effusions. ECHO at OSH with EF 40-45%, mild-mod mitral regurg, severe tricuspid regurg, small pericardial effusion. Home GDMT includes metoprolol XR 100 daily, malou 12.5 mg daily. Previously on jardiance though dc'd due to concern for itching (however, the itching persisted after the stop of Jardiance; itching unlikely 2/2 Jardiance). She received aggressive diuresis with favorable response. Repeat TTE on 02/25/2025 showed LVEF 25%, mod TR, mild RV hypokinesis, and distended IVC. - Lasix 80 mg PO BID - Continue metoprolol XR 100 daily, malou 12.5 mg daily, jardiance 10 mg daily - Continue Entresto - to 1 tab BID (peck check $0) - tele, daily weights, I/O Assessment & Plan (03/04/2025 10:24 AM CDT): Presented to [place] ED for MAYS, orthopnea, difficulty mobilizing for 2-3 weeks. Her grounds and nursery specialist Dr. Flores increased lasix from 40 every day to BID, taking this with spironolactone without improvement. BNP elevation to 4300s, 1+ pitting edema, CTAP with cardiomegaly with right sided HF with pulm HTN, pleural effusions. ECHO at OSH with EF 40-45%, mild-mod mitral regurg, severe tricuspid regurg, small pericardial effusion. Home GDMT includes metoprolol XR 100 daily, malou 12.5 mg daily. Previously on jardiance though dc'd due to concern for itching (however, the itching persisted after the stop of Jardiance; itching unlikely 2/2 Jardiance). She received aggressive diuresis with favorable response. Repeat TTE on 02/25/2025 showed LVEF 25%, mod TR, mild RV hypokinesis, and distended IVC. - Wean IV lasix 120 mg daily - Continue metoprolol XR 100 daily, malou 12.5 mg daily, jardiance 10 mg daily - Continue Entresto 24-26 to 1 tab BID (peck check $0) - tele, daily weights, I/O Assessment & Plan (03/03/2025 7:19 AM CDT): Presented to [place] ED for MAYS, orthopnea, difficulty mobilizing for 2-3 weeks. Her grounds and nursery specialist Dr. Flores increased lasix from 40 every day to BID, taking this with spironolactone without improvement. BNP elevation to 4300s, 1+ pitting edema, CTAP with cardiomegaly with right sided HF with pulm HTN, pleural effusions. ECHO at OSH with EF 40-45%, mild-mod mitral regurg, severe tricuspid regurg, small pericardial effusion. Home GDMT includes metoprolol XR 100 daily, malou 12.5 mg daily. Previously on jardiance though dc'd due to concern for itching (however, the itching persisted after the stop of Jardiance; itching unlikely 2/2 Jardiance). She received aggressive diuresis with favorable response. Repeat TTE on 02/25/2025 showed LVEF 25%, mod TR, mild RV hypokinesis, and distended IVC. - Continue IV lasix 120 mg BID - Continue metoprolol XR 100 daily, malou 12.5 mg daily, jardiance 10 mg daily - Continue Entresto 24-26 to 1 tab BID (peck check $0) - tele, daily weights, I/O Assessment & Plan (03/02/2025 2:33 PM CDT): Presented to [place] [facility] for MAYS, orthopnea, difficulty mobilizing for 2-3 weeks. Her grounds and nursery specialist Dr. Flores increased lasix from 40 every day to BID, taking this with spironolactone without improvement. BNP elevation to 4300s, 1+ pitting edema, CTAP with cardiomegaly with right sided HF with pulm HTN, pleural effusions. ECHO at OSH with EF 40-45%, mild-mod mitral regurg, severe tricuspid regurg, small pericardial effusion. Home GDMT includes metoprolol XR 100 daily, malou 12.5 mg daily. Previously on jardiance though dc'd due to concern for itching (however, the itching persisted after the stop of Jardiance; itching unlikely 2/2 Jardiance). She received aggressive diuresis with favorable response. Repeat TTE on 02/25/2025 showed LVEF 25%, mod TR, mild RV hypokinesis, and distended IVC. - Continue IV lasix 120 mg BID - Continue metoprolol XR 100 daily, malou 12.5 mg daily, jardiance 10 mg daily - Continue Entresto 24-26 to 1 tab BID (peck check $0) - tele, daily weights, I/O Assessment & Plan (03/01/2025 10:24 AM CDT): Presented to [place] ED for MAYS, orthopnea, difficulty mobilizing for 2-3 weeks. Her grounds and nursery specialist Dr. Flores increased lasix from 40 every day to BID, taking this with spironolactone without improvement. BNP elevation to 4300s, 1+ pitting edema, CTAP with cardiomegaly with right sided HF with pulm HTN, pleural effusions. ECHO at OSH with EF 40-45%, mild-mod mitral regurg, severe tricuspid regurg, small pericardial effusion. Home GDMT includes metoprolol XR 100 daily, malou 12.5 mg daily. Previously on jardiance though dc'd due to concern for itching (however, the itching persisted after the stop of Jardiance; itching unlikely 2/2 Jardiance). She received aggressive diuresis with favorable response. Repeat TTE on 02/25/2025 showed LVEF 25%, mod TR, mild RV hypokinesis, and distended IVC. - Continue IV lasix 120 mg BID - Continue metoprolol XR 100 daily, malou 12.5 mg daily, jardiance 10 mg daily - Continue Entresto 24-26 to 1 tab BID (peck check $0) - tele, daily weights, I/O Assessment & Plan (02/28/2025 3:45 PM CDT): Presented to [place] [facility] for MAYS, orthopnea, difficulty mobilizing for 2-3 weeks. Her grounds and nursery specialist Dr. Flores increased lasix from 40 every day to BID, taking this with spironolactone without improvement. BNP elevation to 4300s, 1+ pitting edema, CTAP with cardiomegaly with right sided HF with pulm HTN, pleural effusions. ECHO at OSH with EF 40-45%, mild-mod mitral regurg, severe tricuspid regurg, small pericardial effusion. Home GDMT includes metoprolol XR 100 daily, malou 12.5 mg daily. Previously on jardiance though dc'd due to concern for itching (however, the itching persisted after the stop of Jardiance; itching unlikely 2/ Jardiance). She received aggressive diuresis with favorable response. Repeat TTE on 02/25/2025 showed LVEF 25%, mod TR, mild RV hypokinesis, and distended IVC. - Continue IV lasix 120 mg BID - Continue metoprolol XR 100 daily, malou 12.5 mg daily, jardiance 10 mg daily - Up-titrate Entresto 24-26 to 1 tab BID (peck check $0) - tele, daily weights, I/O Assessment & Plan (02/27/2025 12:52 PM CDT): Presented to [place] ED for MAYS, orthopnea, difficulty mobilizing for 2-3 weeks. Her grounds and nursery specialist Dr. Flores increased lasix from 40 every day to BID, taking this with spironolactone without improvement. BNP elevation to 4300s, 1+ pitting edema, CTAP with cardiomegaly with right sided HF with pulm HTN, pleural effusions. ECHO at OSH with EF 40-45%, mild-mod mitral regurg, severe tricuspid regurg, small pericardial effusion. Home GDMT includes metoprolol XR 100 daily, malou 12.5 mg daily. Previously on jardiance though dc'd due to concern for itching (however, the itching persisted after the stop of Jardiance; itching unlikely 2/2 Jardiance). She received aggressive diuresis with favorable response. Repeat TTE on 02/25/2025 showed LVEF 25%, mod TR, mild RV hypokinesis, and distended IVC. - Up-titrate IV lasix to 120 mg BID - cont metoprolol XR 100 daily, malou 12.5 mg daily, jardiance 10 mg daily - cont Entresto 24-26 0.5 tab BID (peck check $0) - tele, daily weights, I/O Assessment & Plan (02/26/2025 11:04 AM CDT): Presented to [place] ED for MAYS, orthopnea, difficulty mobilizing for 2-3 weeks. Her grounds and nursery specialist Dr. Flores increased lasix from 40 every day to BID, taking this with spironolactone without improvement. BNP elevation to 4300s, 1+ pitting edema, CTAP with cardiomegaly with right sided HF with pulm HTN, pleural effusions. ECHO at OSH with EF 40-45%, mild-mod mitral regurg, severe tricuspid regurg, small pericardial effusion. Home GDMT includes metoprolol XR 100 daily, malou 12.5 mg daily. Previously on jardiance though dc'd due to concern for itching (however, the itching persisted after the stop of Jardiance; itching unlikely 2/2 Jardiance). She received aggressive diuresis with favorable response. - IV lasix 80 BID - cont metoprolol, malou, jardiance - cont low dose Entresto (peck check $0) - tele, daily weights, I/O Assessment & Plan (02/25/2025 11:56 AM CDT): Presented to [place] ED for MAYS, orthopnea, difficulty mobilizing for 2-3 weeks. Her grounds and nursery specialist Dr. Flores increased lasix from 40 every day to BID, taking this with spironolactone without improvement. BNP elevation to 4300s, 1+ pitting edema, CTAP with cardiomegaly with right sided HF with pulm HTN, pleural effusions. ECHO at OSH with EF 40-45%, mild-mod mitral regurg, severe tricuspid regurg, small pericardial effusion. Home GDMT includes metoprolol XR 100 daily, malou 12.5 mg daily. Previously on jardiance though dc'd due to concern for itching (however, the itching persisted after the stop of Jardiance; itching unlikely 2/2 Jardiance). She received aggressive diuresis. - IV lasix 40 BID - cont metoprolol, malou, jardiance - cont low dose Entresto - tele, daily weights, I/O Assessment & Plan (02/24/2025 6:41 AM CDT): Presented to [place] ED for MAYS, orthopnea, difficulty mobilizing for 2-3 weeks, not responsive to daily -> BID lasix 40 PO. BNP elevation to 4300s, 1+ pitting edema, CTAP with cardiomegaly with right sided HF with pulm HTN, pleural effusions. ECHO at OSH with EF 40-45%, mild-mod mitral regurg, severe tricuspid regurg, small pericardial effusion. Treated with Home regimen: lasix 40 daily -> BID iso HF exacerbation, metoprolol XR 100 daily, malou 12.5 mg daily. Previously on jardiance though dc'd due to concern for itching. - IV lasix 80 BID - cont metoprolol, malou - start low dose entresto - restart jardiance as she has itching with dc of med - tele, daily weights, I/O ACP (advance care planning) 10/24/2024 CHF (congestive heart failur e), NYHA class I, acute on chronic, combined 10/12/2024 Acute on chronic congestive heart failure 2024 Osteomyelitis 07/07/2024 Ventricular tachycardia 06/11/2024 Chronic diastolic congestive heart failure 06/11 Endocarditis 06/11/2024 Urinary frequency 06/11/2024 Gastroesophageal reflux disease without esophagi tis 06/11/2024 Assessment & Plan (03/05/2025 7:31 AM CDT): Cont PPI Assessment & Plan (03/04/2025 7:19 AM CDT): Cont PPI Assessment & Plan (03/03/2025 7:19 AM CDT): Cont PPI Assessment & Plan (03/02/2025 2:33 PM CDT): Cont PPI Assessment & Plan (03/01/2025 7:35 AM CDT): Cont PPI Assessment & Plan (02/28/2025 8:44 AM CDT): Cont PPI Assessment & Plan (02/27/2025 8:12 AM CDT): Cont PPI Assessment & Plan (02/26/2025 7:54 AM CDT): Cont PPI Assessment & Plan (02/25/2025 11:56 AM CDT): Cont PPI Assessment & Plan (02/24/2025 2:07 AM CDT): Cont PPI Paroxysmal atrial fibrillation 06/11/2024 Assessment & Plan (03/05/2025 10:58 AM CDT): Home medication: xarelto 20 daily, metoprolol. Xarelto was held due to elevated INR 2/2 congestion hepatopathy. - Continue Xarelto 15 mg daily (dose adjusted based on renal function) Assessment & Plan (03/04/2025 7:19 AM CDT): Home medication: xarelto 20 daily, metoprolol. Xarelto was held due to elevated INR 2/2 congestion hepatopathy. INR levels fluctuate during this admission. - Hold home Xarelto Assessment & Plan (03/03/2025 10:56 AM CDT): Home medication: xarelto 20 daily, metoprolol. Xarelto was held due to elevated INR 2/2 congestion hepatopathy. INR levels fluctuate during this admission. - Hold home Xarelto Assessment & Plan (03/02/2025 2:33 PM CDT): Home medication: xarelto 20 daily, metoprolol. Xarelto was held due to elevated INR 2/2 congestion hepatopathy. Elevated INR gradually resolved during this admission. - Re-start home Xarelto Assessment & Plan (03/01/2025 11:44 AM CDT): Home medication: xarelto 20 daily, metoprolol. Xarelto was held due to elevated INR 2/2 congestion hepatopathy. Elevated INR gradually resolved during this admission. - Re-start home Xarelto Assessment & Plan (02/28/2025 8:44 AM CDT): Home medication: xarelto 20 daily, metoprolol. Xarelto was held due to elevated INR 2/2 congestion hepatopathy. - Hold home Xarelto iso elevated INR likely 2/2 congestion Assessment & Plan (02/27/2025 12:52 PM CDT): Home medication: xarelto 20 daily, metoprolol. Xarelto was held due to elevated INR 2/2 congestion hepatopathy. - Hold home Xarelto iso elevated INR likely 2/2 congestion Assessment & Plan (02/26/2025 11:31 AM CDT): Home medication: xarelto 20 daily, metoprolol. Xarelto was briefly held due to elevated INR 2/2 congestion hepatopathy. - Restart home Xarelto Assessment & Plan (02/25/2025 11:56 AM CDT): Home medication: xarelto 20 daily, metoprolol - Hold xarelto due to elevated INR 2/2 congestion hepatopathy Assessment & Plan (02/24/2025 2:07 AM CDT): Cont home xarelto 20 daily, metoprolol Major depressive disorder 06/11/2024 Assessment & Plan (03/05/2025 7:31 AM CDT): Home medication: notriptyline, escitalopram - Hold notriptyline due to drowsiness Assessment & Plan (03/04/2025 7:19 AM CDT): Home medication: notriptyline, escitalopram - Hold notriptyline due to drowsiness Assessment & Plan (03/03/2025 7:19 AM CDT): Home medication: notriptyline, escitalopram - Hold notriptyline due to drowsiness Assessment & Plan (03/02/2025 2:33 PM CDT): Home medication: notriptyline, escitalopram - Hold notriptyline due to drowsiness Assessment & Plan (03/01/2025 7:35 AM CDT): Home medication: notriptyline, escitalopram - Hold notriptyline due to drowsiness Assessment & Plan (02/28/2025 8:44 AM CDT): Home medication: notriptyline, escitalopram - Hold notriptyline due to drowsiness Assessment & Plan (02/27/2025 8:12 AM CDT): Home medication: notriptyline, escitalopram - Hold notriptyline due to drowsiness Assessment & Plan (02/26/2025 7:54 AM CDT): Home medication: notriptyline, escitalopram - Hold notriptyline due to drowsiness Assessment & Plan (02/25/2025 11:56 AM CDT): Home medication: notriptyline, escitalopram - Hold notriptyline due to drowsiness Assessment & Plan (02/24/2025 5:36 AM CDT): Cont home notriptyline, escitalopram CKD (chronic kidney disease) 06/11/2024 Traumatic hematoma of right upper arm 06/06/2024 Hypotension due to drugs 06/06/2024 Assessment & Plan (03/05/2025 7:31 AM CDT): Requiring midodrine at OSH. Normotensive on admission. Assessment & Plan (03/04/2025 7:19 AM CDT): Requiring midodrine at OSH. Normotensive on admission. Assessment & Plan (03/03/2025 7:19 AM CDT): Requiring midodrine at OSH. Normotensive on admission. Assessment & Plan (03/02/2025 2:33 PM CDT): Requiring midodrine at OSH. Normotensive on admission. Assessment & Plan (03/01/2025 7:35 AM CDT): Requiring midodrine at OSH. Normotensive on admission. Assessment & Plan (02/28/2025 8:44 AM CDT): Requiring midodrine at OSH. Normotensive on admission. Assessment & Plan (02/27/2025 8:12 AM CDT): Requiring midodrine at OSH. Normotensive on admission. Assessment & Plan (02/26/2025 7:54 AM CDT): Requiring midodrine at OSH. Normotensive on admission. Assessment & Plan (02/25/2025 11:56 AM CDT): Requiring midodrine at OSH. Normotensive on admission. Assessment & Plan (02/24/2025 2:07 AM CDT): Requiring midodrine at OSH. Normotensive on admission. SOB (shortness of breath) 05/30/2024 Acute on chronic systolic congestive heart failu re 05/30/2024 Neck pain 05/30/2024 Hyponatremia 05/30/2024 Assessment & Plan (03/05/2025 7:31 AM CDT): Na 133 iso fluid overload. Sodium level improved with aggressive diuresis. - fluid restricted diet, diuretics as above Assessment & Plan (03/04/2025 7:19 AM CDT): Na 133 iso fluid overload. Sodium level improved with aggressive diuresis. - fluid restricted diet, diuretics as above Assessment & Plan (03/03/2025 10:56 AM CDT): Na 133 iso fluid overload. Sodium level improved with aggressive diuresis. - fluid restricted diet, diuretics as above Assessment & Plan (03/02/2025 2:33 PM CDT): Na 133 iso fluid overload. - fluid restricted diet, diuretics as above Assessment & Plan (03/01/2025 7:35 AM CDT): Na 133 iso fluid overload. - fluid restricted diet, diuretics as above Assessment & Plan (02/28/2025 8:44 AM CDT): Na 133 iso fluid overload. - fluid restricted diet, diuretics as above Assessment & Plan (02/27/2025 8:12 AM CDT): Na 133 iso fluid overload. - fluid restricted diet, diuretics as above Assessment & Plan (02/26/2025 7:54 AM CDT): Na 133 iso fluid overload. - fluid restricted diet, diuretics as above Assessment & Plan (02/25/2025 11:56 AM CDT): Na 133 iso fluid overload. - fluid restricted diet, diuretics as above Assessment & Plan (02/24/2025 5:36 AM CDT): Na 133 iso fluid overload. - fluid restricted diet, diuretics as above Chronic a-fib 05/30/2024 Controlled type 2 diabetes m ellitus with chronic kidney disease, with long-term current use of insulin 05/30/2024 Hypothyroidism 05/30/2024 Assessment & Plan (03/05/2025 7:31 AM CDT): Subclinical hypothyroidism, TSH 14, FT4 1.32. Cont home levo 75 Assessment & Plan (03/04/2025 7:19 AM CDT): Subclinical hypothyroidism, TSH 14, FT4 1.32. Cont home levo 75 Assessment & Plan (03/03/2025 7:19 AM CDT): Subclinical hypothyroidism, TSH 14, FT4 1.32. Cont home levo 75 Assessment & Plan (03/02/2025 2:33 PM CDT): Subclinical hypothyroidism, TSH 14, FT4 1.32. Cont home levo 75 Assessment & Plan (03/01/2025 7:35 AM CDT): Subclinical hypothyroidism, TSH 14, FT4 1.32. Cont home levo 75 Assessment & Plan (02/28/2025 8:44 AM CDT): Subclinical hypothyroidism, TSH 14, FT4 1.32. Cont home levo 75 Assessment & Plan (02/27/2025 8:12 AM CDT): Subclinical hypothyroidism, TSH 14, FT4 1.32. Cont home levo 75 Assessment & Plan (02/26/2025 7:54 AM CDT): Subclinical hypothyroidism, TSH 14, FT4 1.32. Cont home levo 75 Assessment & Plan (02/25/2025 11:56 AM CDT): Subclinical hypothyroidism, TSH 14, FT4 1.32. Cont home levo 75 Assessment & Plan (02/24/2025 5:36 AM CDT): Subclinical hypothyroidism, TSH 14, FT4 1.32. Cont home levo 75 JOSE (obstructive sleep apnea) 05/30/2024 Diabetes mellitus with hyperglycemia 05/30/2024 Assessment & Plan (03/05/2025 7:31 AM CDT): Telemedicine summary on 11/30/24 shows Lantus 18, Humalog 15-18u TIDAC, SSI - hold insulin iso hypoglycemic episodes 03/02. Assessment & Plan (03/04/2025 7:19 AM CDT): Telemedicine summary on 11/30/24 shows Lantus 18, Humalog 15-18u TIDAC, SSI - hold insulin iso hypoglycemic episodes 03/02. Assessment & Plan (03/03/2025 10:56 AM CDT): Telemedicine summary on 11/30/24 shows Lantus 18, Humalog 15-18u TIDAC, SSI - hold insulin iso hypoglycemic episodes 03/02. Assessment & Plan (03/02/2025 2:33 PM CDT): Telemedicine summary on 11/30/24 shows Lantus 18, Humalog 15-18u TIDAC, SSI - hold insulin iso hypoglycemic episodes 03/02. Assessment & Plan (03/01/2025 11:44 AM CDT): Telemedicine summary on 11/30/24 shows Lantus 18, Humalog 15-18u TIDAC, SSI - Lantus 16, SSI - Hold home TIDAC 10u Assessment & Plan (02/28/2025 8:44 AM CDT): Telemedicine summary on 11/30/24 shows Lantus 18, Humalog 15-18u TIDAC, SSI - Lantus 18, SSI - Hold home TIDAC 10u Assessment & Plan (02/27/2025 12:52 PM CDT): Telemedicine summary on 11/30/24 shows Lantus 18, Humalog 15-18u TIDAC, SSI - Lantus 18, SSI - Hold home TIDAC 10u Assessment & Plan (02/26/2025 7:54 AM CDT): Telemedicine summary on 11/30/24 shows Lantus 18, Humalog 15-18u TIDAC, SSI - Lantus 18, TIDAC 10u + SSI in house Assessment & Plan (02/25/2025 11:56 AM CDT): Telemedicine summary on 11/30/24 shows Lantus 18, Humalog 15-18u TIDAC, SSI - Lantus 18, TIDAC 10u + SSI in house Assessment & Plan (02/24/2025 5:36 AM CDT): Telemedicine summary on 11/30/24 shows Lantus 18, Humalog 15-18u TIDAC, SSI - Lantus 18, TIDAC 10u + SSI in house Hx Endocarditis 05/29/2024 Assessment & Plan (03/05/2025 10:58 AM CDT): 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 AICD Removed in 07/2024, started cefadroxil daily. 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 AICD Removed in 07/2024, started cefadroxil daily Encounters Date Type Department Care Team Description 03/29/2025 Telephone [facility] Cardiology [address] [facility] [address] [place] [address] [place] [id number] Kezia Engel 03/27/2025 Telephone [facility] Cardiology [address] [facility] [address] [place] [address] [place] [phone] Carlitos Varghese 03/27/2025 Telephone [facility] Cardiology [address] [facility] [address] [place] [address] [place] [phone] Carlitos Varghese Scheduling Appointments from Last 3 Months Surgical History Surgery [...] Smokeless Tobacco: Never Tobacco Cessation:Counseling Given: No [facility] Utilities Answer Date Recorded In the past 12 months has [employer], [employer], oil, or water [employer] threatened to shut off services in your home? Yes 02/25/2025 Social Connection and Isolation Panel Answer Date Recorded In a typical week, how many times do you talk on the phone with family, friends, or neighbors? More than three times a week 02/25/2025 How often do you get togethe r with friends or relatives? More than three times a week 02/25/2025 How often do you attend chur ch or advent services? Never 02/25/2025 Do you belong to any clubs o r organizations such as latter-day groups, unions, fraternal or athletic groups, or school groups? No 02/25/2025 How often do you attend meet ings of the clubs or organizations you belong to? Never 02/25/2025 Are you , , di vorced, , never , or living with a partner? 02/25/2025 AUDIT-C Answer Date Recorded Q1: How often [...] housing, medical care, and heating? Somewhat hard 02/25/2025 PHQ-2 Answer Date Recorded PHQ-2 Total Score (If total score is 3 or more points, staff should administer the PHQ-9) 0 02/24/2025 Hunger Vital Sign Answer Date Recorded Within the past 12 months, y ou worried that your food would run out before you got the money to buy more. Never true 02/26/20 25 Within the past 12 months, t he food you bought just didn't last and you didn't have money to get more. Never true 02/25/2025 PRAPARE - Transportation Answer Date Re corded In the past 12 months, has l ack of transportation kept you from medical appointments or from getting medications? No 02/07 In the past 12 months, has l ack of transportation kept you from meetings, work, or from getting things needed for daily living? No 02/25/2025 Housing Stability Vital Sign Answer Charlie e Recorded In the last 12 months, was t here a time when you were not able to pay the mortgage or rent on time? No 02/25/2025 In the past 12 months, how m any times have you moved where you were living? 0 02/25/2025 At any time in the past 12 m [facility], were you homeless or living in a senior living (including now)? No 02/25/2025 Personal Safety Answer Date Recorded Have you ever been in or are you currently in a harmful physical or emotional relationship or is someone making you feel afraid or unsafe? 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 Gender Identity Not on file Sexual Orientation Not on file Obstetrics History Last Filed Vital Signs Vital Sign Reading Time Taken Comments Blood Pressure 123/109 03/05/2025 10:11 AM CDT Pulse 71 03/05/2025 10:11 AM CDT Temperature 36.1 C (97 F) 03/05/2025 8:24 AM CDT Respiratory Rate 18 03/05/2025 8:24 AM CDT Oxygen Saturation 95% 03/05/2025 10:11 AM CDT Inhaled Oxygen Concentration - - Weight 128 kg (282 lb 3 oz) 03/05/2025 5:41 AM C DT Height 165.1 cm (5' 5) 02/23/2025 9:20 PM CDT Body Mass Index 46.96 02/23/2025 9:20 PM CDT Plan of Treatment Health Maintenance Due Date Last Done Comments Albumin Creatinine Ratio, Urine 1961 Cervical Cancer Screening 1961 Dilated Eye Exam 1961 Foot Exam 1961 Hepatitis B Screening 12/20/1979 Regular Well Visit/Exam 18-64 12/20/1979 Zoster Vaccine (1 of 2) 12/20/2011 Breast Cancer Screening-Mammogram 10/27/2022 022, 10/17/2018 Covid-19 Vaccine (2023-2 5 season) 2024 01/18/2021, 12/23/2020 Influenza Vaccine (#1) 2025 , 07/18/2020, 06/22/2019, Additional history exists Hemoglobin A1C 08/26/2025 02/23/2025, 10/10, 07/07/2024, Additional history exists Depression Screening 02/21/2026 02/21/2025, 07/03/20 24 Lipid Panel 02/24/2026 02/24/2025, 1010/2023, 07/09/2024 eGFR 03/04/2026 03/04/2025, 02/08, 03/03/2025, Additional history exists Colon Cancer Screening-Colonoscopy 03/04/2027 03/04/2017 DTaP/Tdap/Td Vaccine (2 - Td or Tdap) 06/10/2034 06/10/2024 Colon Cancer Screening-CT Colonography Discontinued 03/04/2017 Colon Cancer Screening-DNA Stool Discontinued 03/04/20 Colon Cancer Screening-FIT Discontinued 03/04/2017 Colon Cancer Screening-Sigmoidoscopy Discontinued 03/04/2017 Pneumococcal vaccine <65 Completed 08/26/2022 Hepatitis C Screening Completed 02/24/2025 , 10/12/2024, 03/01/2017, Additional history exists Medical Devices Implanted Type Area Snack Bar Attendant Device Identifier Shelf Expiration Date Model / Serial / Lot Biotronik Iperia 7 Drt-05/20/2017 Implanted:08/2017 by Jasper Mcfarland MD (Quantity not on file) ICD Chest Wall Biotronik [id number] / [id number] / Biotronik Rv Lead [id number]/2 [id number] Implanted:08/2017 (Quantity not on file) Lead Heart [id number] / [id number] / Biotronik Ra Lead [id number]/21/2 [id number] Implanted: (Quantity not on file) Lead Heart Biotronik [id number] / [id number] / Unknown Wire (~5cm Long) Other - see comments Chest Stent Stent Heart [facility] Mynxgrip 5fr Balloon Catheter Integrate Sealant Lock Latex Free [id number] - [id number] Implanted:Qty : 1 on 10/23/2024 by Sandro Hong MD at [facility] 07/17/2026 [id number] / / [id number] Procedures Procedure Name Priority Date/Time Associated Diagnosis Comments EGFR Routine 03/04/2025 12:03 AM CDT HEPATITIS PANEL, ACUTE STAT 02/24/2025 11:49 AM CDT LIPID PANEL Timed 02/24/2025 11:49 AM CDT HEMOGLOBIN A1C Routine 02/23/2025 9:51 PM CDT COLONOSCOPY REPORT 03/04/2017 from Last 3 Months or Most Recently Relevant to Health Maintenance Results * (ABNORMAL) eGFR (03/04/2025 12:03 AM CDT) eGFR 38(L) >=60 mL/min/1. 73 m2 Comment: Interpretive Data [...] interpretive data was last reviewed 2021. Blood 03/04/2025 12:0 3 AM CDT 03/04/2025 12:59 AM CDT us Abel Agrawal MD LAB BLOOD ORDERABLES Final R esult [facility] Department [place] [address] * (ABNORMAL) Hepatitis panel, acute Blood (02/24/2025 11:49 AM CDT) Pathologist [facility] Hep A IgM Nonreactive Nonreactive Hep B core IgM Nonreactive Nonreactive [facility] Hep C Ab Reactive(A) Nonreactive [facility] Comment: Reactive for HCV antibodies. This may represent current or past HCV infection. Supplemental molecular testing will be automatically performed to determine current infection status in accordance with current CDC screening recommendations. Current interpretive data was last revised on 22 HepBsAg Nonreactive Nonreactive [facility] Blood 02/24/2025 11:4 9 AM CDT 02/24/2025 12:17 PM CDT us Geo Subramanian MD PhD LAB MICROBIOLOGY - GENERAL ORDERABLES Final Result [facility] Department [place] [address] * (ABNORMAL) Lipid panel (02/24/2025 11:49 AM CDT) Cholesterol 104 30 - 199 mg/dL Comment: Interpretive Data [...] Data was last revised on 2018. Triglycerides 70 <=149 mg/dL [facility] Comment: Interpretive Data Ages < or [...] Data was last revised on 2018. HDL 16(L) >=40 mg/dL [facility] Comment: Interpretive Data Ages < or [...] was last revised on 2018. LDL, calculated 73 <=129 mg/dL [facility] Comment: Interpretive Data Ages < or [...] was last revised on 2024. Non-HDL Cholesterol 88 mg/dL [facility] Comment: Interpretive Data Ages < or [...] was last revised on 2018. Chol/HDL ratio 7 [facility] Blood 02/24/2025 11:4 9 AM CDT 02/24/2025 12:36 PM CDT us Geo Subramanian MD PhD LAB BLOOD ORDERABL ES Final Result [facility] Department [place] [address] * (ABNORMAL) Hemoglobin A1c (02/23/2025 9:51 PM CDT) Hgb A1C 8.6(H) 4.0 - 5.6 % Estimated Average Glucose 200 mg/dL [facility] Comment: The ADA recommends reporting an estimated Average Glucose (eAG) with all Hemoglobin A1c results using the equation derived from a study of 507 normal and diabetic adults. Minority populations were underrepresented and children were not included. (Diabetes Care 2020; 43(S1): S66-S76). The eAG is not equivalent to a fasting glucose. Blood 02/23/2025 9:51 PM CDT 02/23/2025 10:40 PM CDT Narrative [facility] - 02/24/2025 5:17 PM CDT reflex us Geo Subramanian MD PhD LAB BLOOD ORDERABL ES Final Result [facility] Department [place] [address] * COLONOSCOPY REPORT (03/04/2017) Anatomical Region Laterality Modality Other Narrative 03/04/2017 Ordered by an unspecified provider. Historical Provider GI PROCEDURE ORDERABLES F inal Result from Last 3 Months or Most Recently Relevant to Health Maintenance Insurance MEDICARE [facility] [place] [address] [place] [address] [place] [address] [facility] Advance Directives For more information, please contact: [phone] * Full Code (Latest Code Status on File) Date Activated Date Inactivated Comments 02/23/2025 8:54 PM 03/05/2025 10:04 PM * Full Code Date Activated Date Inactivated Comments 10/12/2024 4:46 PM 10/24/2024 7:23 PM * Full Code Date Activated Date Inactivated Comments 07/07/2024 12:15 AM 08/02/2024 9:58 PM * Full Code Date Activated Date Inactivated Comments 06/11/2024 2:55 AM 06/21/2024 8:49 PM * Full Code Date Activated Date Inactivated Comments 05/29/2024 9:54 PM 06/09/2024 3:14 AM Care Teams Backup Engineer Relationship Specialty Start Date End Date Oswaldo Serrano MD [address] [address] PCP - General Family Medicine 04/14/18 [place] [address] [address] Consulting Physician Cardiology 06/08/24 Sandro Hong MD [address] [place] [address] Referring Physician Cardiology 06/21/24 Juanis Lo MD [address] [facility] [address] [facility] [place] [address] Referring Physician Cardiology 03/29/25
--- OUTSIDE RECORDS SUMMARY | 2025-06-07 17:59 | XMS_ITS | Encounter Summary ---
Author Organization [facility] Address [address] [place] [address] Phone Care Team Providers Care Stringed Instrument Repairer Name Role Phone Oswaldo Serrano MD Primary Care Provider Angel Crowe DPCiara Unavailable [phone] Mora Fritz Unavailable Unavailable Ok Jorge MD Unavailable Orlin Urbina APRN, IRON MINER Unavailable [phone] Reason for Visit * Reason Comments Medication Refill Encounter Details Date Type Department Care Team (Late st Contact Info) Description 05/27/2024 [facility]ill [facility] - Family [facility] - [place] [address] [place] [address] Oswaldo Serrano MD #[address] [address] Medication Refill Social History Tobacco Use Types Packs/Day Years Used Date Smoking Tobacco: Never Smokeless Tobacco: Never Alcohol Use Standard Drinks/Week Comments No 0 (1 standard drink = 0.6 oz pur e alcohol) [facility] Utilities Answer Date Recorded In the [...] often do you attend chur ch or uatsdin services? Never 11/09/2023 Do you belong to [...] Score - Questions 1-9 0 10/3 10/2022 [facility] [place] of Occupat ional Health - Occupational Stress [...] [facility] - [place] [address] [place] [address] Oswaldo Serrano MD [address] [address] 07/22/2025 2:30 PM CDT Office Visit [facility] - Endocrinology - [place] [address] [place] [address] Ok Jorge MD #[address] [address] 07/30/2025 2:45 PM CDT Office Visit [facility] [address] [place] [address] Orlin Urbina APRN, IRON MINER [address] [facility] [place] [address] documented as of this encounter Visit Diagnoses Not on filedocumented in this encounter Additional Health Concerns Assessment Noted Time PHQ-9 Depression Total Score: 0 08/09/20 23 2:56 PM CDT documented as of this encounter Care Teams Stringed Instrument Repairer Relationship Specialty Start Date End Date Oswaldo Serrano MD #[address] [address] PCP - General Family Medicine 05/19/17 Angel Crowe DPM #[address] [address] Consulting Physician Podiatry 06/16/17 Mora Fritz [place] Behavioral Health Navigator 06/15/18 Ok Jorge MD #[address] [address] Consulting Physician Endocrinology 05/12/22 Orlin Urbina APRN, IRON MINER [address]2 [place] [address] Nurse Practitioner Advanced Practice Nurse 11/09/22 documented as of this encounter
--- OUTSIDE RECORDS SUMMARY | 2025-06-07 17:59 | XMS_ITS | Encounter Summary ---
Author Organization [facility] Address [address] [place] [address] Phone Care Team Providers Care Periodontist Name Role Phone Oswaldo Serrano MD Primary Care Provider Angel Crowe DPCiara Unavailable [phone] Mora Fritz Unavailable Unavailable Ok Jorge MD Unavailable Orlin Urbina APRN, TIE MILL OPERATOR Unavailable [phone] Reason for Visit * Reason Comments Medication Refill Encounter Details Date Type Department Care Team (Late st Contact Info) Description 01/21/2021 Refill [facility] - [facility] - [place] [address] [place] [address] Oswaldo Serrano MD #[address] [address] Medication Refill Social History Tobacco Use Types [...] 1 week ago UTI symptoms [facility] Family Medicine - Connor Hutchinson APN, TIE MILL OPERATOR 1 month ago Essential hypertension [facility] Family [facility] - Oswaldo Moreno MD 1 month ago Intractable cluster headache syndrome, unspecified chronicity pattern [facility] Family [facility] - Oswaldo Moreno MD 1 month ago Subacute maxillary sinusitis [facility] Family [facility] - Oswaldo Moreno MD 2 months ago Chest [facility] - Connor Hutchinson APN, TIE MILL OPERATOR Upcoming Appointments Future Appointments In [address], [facility] In 1 week Oswaldo Serrano MD [facility] Family Medicine - [facility] In 3 weeks Ok Jorge MD [facility] - Endocrinology [facility], [facility] CODING TECH - Recent and Past Visits Recent Visits Date Type Provider Dept 01/14/21 Office Visit Connor Yuan APN, TIE MILL OPERATOR [facility] 12/19/20 Office Visit Oswaldo Serrano MD [facility] 12/18/20 Telemedicine Oswaldo Serrano MD [facility] 12/08/20 Telemedicine Oswaldo Serrano MD [facility] 11/07/20 Telemedicine Connor Yuan APN, TIE MILL OPERATOR [facility] [place] 10/09/20 Office Visit Oswaldo Serrano MD [facility] 09/16/20 Telemedicine Oswaldo Serrano MD [facility] 07/18/20 Office Visit Connor Yuan APN, TIE MILL OPERATOR [facility] 07/11/20 Telemedicine Connor Yuan APN, TIE MILL OPERATOR [facility] 06/09/20 Office Visit Oswaldo [...] Outpatient Visits 1 week ago [facility] TIE MILL OPERATOR 1 month ago Essential hypertension [facility] - [facility] Venegas MD 1 month ago Intractable cluster headache syndrome, unspecified chronicity pattern [facility], Oswaldo A, MD 1 month ago Subacute maxillary sinusitis [facility] - Family Medicine - Oswaldo Moreno MD 2 months ago Chest congestion [facility] Medical [facility] - Family Medicine - Connor Hutchinson APN, TIE MILL OPERATOR Upcoming Appointments Future Appointments In [address], [facility] In 1 week Oswaldo Serrano MD [facility] - [facility] In 3 weeks Ok Jorge MD [facility] Medical [facility] CODING TECH - Recent and Past Visits Recent Visits Date Type Provider Dept 01/14/21 Office Visit Connor Yuan APN, YUDI [facility] 12/19/20 Office Visit Oswaldo Serrano MD [facility] 12/18/20 Telemedicine Oswaldo Serrano MD [facility] 12/08/20 Telemedicine Oswaldo Serrano MD [facility] 11/07/20 Telemedicine Connor Yuan APN, YUDI [facility] 10/09/20 Office Visit Oswaldo Serrano MD [facility] 09/16/20 Telemedicine Oswaldo Serrano MD [facility] 07/18/20 Office Visit Connor Yuan APN, YUDI [facility] 07/11/20 Telemedicine Connor Yuan APN, YUDI [facility] [...] 07/17/2025 2:45 PM CDT Office Visit [facility] Medical Group - Family Medicine - [place] [facility] [facility] [place] [place] [address] Oswaldo Serrano MD #[address] [place] [address] 07/22/2025 2:30 PM CDT Office Visit [facility] Medical [facility] - Endocrinology - [place] [address]2 [place] [address] Ok Jorge MD #[address] [place] [address] 07/30/2025 2:45 PM CDT Office Visit [facility] #2 [place] [address] Orlin Urbina, CASINO GAMING WORKER, TIE MILL OPERATOR #2 [place] [address] documented as of this encounter Visit Diagnoses Not on filedocumented in this encounter Additional Health Concerns Infection Onset Date Last Indicated Resolved Time COVID - 19 07/28/2021 07/29/2021 08/17/2021 12:1 6 AM 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 Assessment Noted Time PHQ-9 Depression Total Score: 2 07/18/20 20 4:26 PM CDT documented as of this encounter Care Teams Periodontist Relationship Specialty Start Date End Date Oswaldo Serrano MD #[address] [place] [address] PCP - General Family Medicine 05/19/17 Angel Crowe DPM #[address] [place] [address] Consulting Physician Podiatry 06/16/17 Mora Fritz [place] Behavioral Health Navigator 06/15/18 Ok Jorge MD #[address] [address] Consulting Physician Endocrinology 05/12/22 Orlin Urbina APRN, TIE MILL OPERATOR #2 [place] [address] Nurse Practitioner Advanced Practice Nurse 11/09/22 documented as of this encounter
--- OUTSIDE RECORDS SUMMARY | 2025-06-07 17:59 | XMS_ITS | Encounter Summary ---
Author Organization [facility] Address [address] [place] [address] Phone Care Team Providers Care Cartography/Mapping Technician Name Role Phone Oswaldo Serrano MD Primary Care Provider [phone] Angel Crowe DPM Unavailable [phone] Mora Fritz Unavailable Unavailable Ok Jorge MD Unavailable Orlin Urbina APRN, COLLECTION ADVISOR Unavailable [phone] Reason for Visit * Reason Comments Medication Refill Encounter Details Date Type Department Care Team (Late st Contact Info) Description 11/27/2022 Refill [facility] [address] [place] [address] Orlin Urbina APRN, COLLECTION ADVISOR #2 [place] [address] Medication Refill Social History Tobacco Use Types [...] Coronavirus/COVID-19? No / Unsure 11/25/2022 12:13 PM SUPERVISOR SULFURIC ACID PLANT documented as of this encounter Plan of Treatment Upcoming Encounters Date Type Department Care Team (Late st Contact Info) Description 07/17/2025 2:45 PM CDT Office Visit [facility] Medical Group - Family Medicine [facility] [address] [place] [address] Oswaldo Serrano MD #[address] [address] 07/22/2025 2:30 PM CDT Office Visit [facility] Medical [facility] - Endocrinology [facility] #2 [place] [address] Ok Jorge MD #2 [facility] [address] [place] [address] 07/30/2025 2:45 PM CDT Office Visit [facility] UROLOGY #[address] [place] [address] Orlin Urbina APRN, COLLECTION ADVISOR #2 [place] [address] documented as of this encounter Visit Diagnoses Not on filedocumented in this encounter Additional Health Concerns Assessment Noted Time PHQ-9 Depression Total Score: 0 10/14/19 23 11:00 AM SUPERVISOR SULFURIC ACID PLANT documented as of this encounter Care Teams Cartography/Mapping Technician Relationship Specialty Start Date End Date Oswaldo Serrano MD #2 [facility] [address] [place] [address] PCP - General Family Medicine 05/19/17 Angel Crowe DPM #2 [facility] [address] [place] [address] Consulting Physician Podiatry 06/16/17 Mora Fritz Behavioral Health Navigator 06/15/18 Ok Jorge MD #2 [facility] [address] [place] [address] Consulting Physician Endocrinology 05/12/22 Orlin Urbina APRN, COLLECTION ADVISOR [address]2 [place] [address] Nurse Practitioner Advanced Practice Nurse 11/09/22 documented as of this encounter
--- OUTSIDE RECORDS SUMMARY | 2025-06-07 17:59 | XMS_ITS | Encounter Summary ---
Author Organization [facility] Address [address] [place] [address] Phone Care Team Providers Care Information Systems Architect Name Role Phone Oswaldo Serrano MD Primary Care Provider [phone] Angel Crowe DPCiara Unavailable [phone] Mora Fritz Unavailable Unavailable Ok Jorge MD Unavailable Orlin Urbina APRN, TEST DIRECTOR Unavailable [phone] Reason for Visit * Reason Comments Medication Refill Encounter Details Date Type Department Care Team (Late st Contact Info) Description 12/11/2023 Refill [facility] - Family Medicine - [place] [address] [place] [address] Oswaldo Serrano MD #[address] [address] Medication Refill Social History Tobacco Use Types [...] often do you attend chur ch or congregation services? Never 11/09/2023 Do you belong to [...] Score - Questions 1-9 0 10/3 10/2022 [facility] [place] of Occupat ional Health - Occupational Stress [...] with SSRI for at least 6 months CIATE MATERIAL HANDLER documented in this encounter Plan of Treatment Upcoming Encounters Date Type Department Care Team (Late st Contact Info) Description 07/17/2025 2:45 PM CDT Office Visit [facility] Medical Group - Family Medicine - [place] [address]2 [place] [address] Oswaldo Serrano MD #2 [facility] [address] [place] [address] 07/22/2025 2:30 PM CDT Office Visit [facility] Medical [facility] - Endocrinology - [place] #2 [facility] [address] Ok Jorge MD #[address] [place] [address] 07/30/2025 2:45 PM CDT Office Visit [facility] PH[facility] UROLOGY #2 [place] [address] Orlin Urbina APRN, TEST DIRECTOR #2 [facility] [place] [address] documented as of this encounter Visit Diagnoses Not on filedocumented in this encounter Additional Health Concerns Assessment Noted Time PHQ-9 Depression Total Score: 0 08/09/20 23 2:56 PM CDT documented as of this encounter Care Teams Information Systems Architect Relationship Specialty Start Date End Date Oswaldo Serrano MD #2 [facility] [address] [place] [address] PCP - General Family Medicine 05/19/17 Angel Crowe DPM #2 [facility] [address] [place] [address] Consulting Physician Podiatry 06/16/17 Mora Fritz [place] Behavioral Health Navigator 06/15/18 Ok Jorge MD #2 [facility] [address] [place] [address] Consulting Physician Endocrinology 05/12/22 Orlin Urbina, MITTEN SEWER, TEST DIRECTOR #2 [place] [address] Nurse Practitioner Advanced Practice Nurse 11/09/22 documented as of this encounter
--- OUTSIDE RECORDS SUMMARY | 2025-06-07 17:59 | XMS_ITS | Encounter Summary ---
Author Organization [facility] Address [address] [place] [address] Phone Care Team Providers Care Plasterer Maintenance Name Role Phone Oswaldo Serrano MD Primary Care Provider Angel Crowe DPM Unavailable [phone] Mora Fritz Unavailable Unavailable Ok Jorge MD Unavailable Orlin Urbina APRN, EXTENSION SERVICE ADVISOR Unavailable [phone] Reason for Visit * Reason Comments Medication Refill Encounter Details Date Type Department Care Team (Late st Contact Info) Description 05/13/2021 Refill [facility] - [facility] Medicine - [place] #2 [place] [address] Ronda Pedraza APRN, YUDI [address] [address] Medication Refill Social History Tobacco [...] Pending Prescriptions Disp Refills ergocalciferol (VITAMIN D) 02675 UNIT Capsule [Pharmacy Med Name: VITAMIN D [...] ago B12 deficiency [facility] - Oswaldo Moreno, MD 3 months ago [facility]TI symptoms [facility], YUDI 4 months ago Essential hypertension [facility] Oswaldo Moreno MD 4 months ago Intractable cluster headache syndrome, unspecified chronicity pattern [facility] Upcoming Appointments Future Appointments Tomorrow Connor Yuan APN, YUDI [facility] In 1 month Ok Jorge MD [facility] GENERAL WORKER - Recent and Past Visits Recent Visits Date Type Provider Dept 02/27/21 Office Visit Oswaldo Serrano MD [facility] [place] 02/16/21 Office Visit Oswaldo Serrano MD [facility] [place] 01/14/21 Office Visit Connor Yuan APN, YUDI [facility] [place] 12/19/20 Office Visit Oswaldo Serrano MD [facility] 12/18/20 Telemedicine Oswaldo Serrano MD [facility] [place] 12/08/20 Telemedicine Oswaldo Serrano MD [facility] 11/07/20 Telemedicine Connor Yuan APN, YUDI [facility] 10/09/20 Office Visit Oswaldo Serrano MD [facility] 09/16/20 Telemedicine Oswaldo Serrano MD [facility] [place] 07/18/20 Office Visit Cnonor Yuan APN, YUDI [facility] Showing recent [...] PM CDT Office Visit [facility] - Family Medicine - [place] #[address] [place] [address] Oswaldo Serrano MD #2 [facility] [address] [place] [address] 07/22/2025 2:30 PM CDT Office Visit [facility] - Endocrinology - [place] #2 [place] [address] Ok Jorge MD #2 [facility] [address] [place] [address] 07/30/2025 2:45 PM CDT Office Visit [facility] UROLOGY #2 [place] [address] Orlin Urbina, PRESS SET UP, EXTENSION SERVICE ADVISOR #2 [place] [address] documented as of this encounter Visit Diagnoses Diagnosis Vitamin D deficiency Unspecified vitamin D deficiency documented in this encounter Additional Health Concerns Infection Onset Date Last Indicated Resolved Time COVID - 19 07/28/2021 07/29/2021 08/17/2021 12:1 6 AM PRECISION 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 Assessment Noted Time PHQ-9 Depression Total Score: 2 07/18/20 4:26 PM CDT documented as of this encounter Care Teams Plasterer Maintenance Relationship Specialty Start Date End Date Oswaldo Serrano MD #[address] [address] PCP - General Family Medicine 05/19/17 Angel Crowe DPM #[address] [address] Consulting Physician Podiatry 06/16/17 Mora Fritz [place] Behavioral Health Navigator 06/15/18 Ok Jorge MD #[address] [address] Consulting Physician Endocrinology 05/12/22 Orlin Urbina APRN, EXTENSION SERVICE ADVISOR #2 [place] [address] Nurse Practitioner Advanced Practice Nurse 11/09/22 documented as of this encounter
--- OUTSIDE RECORDS SUMMARY | 2025-06-07 17:59 | XMS_ITS | Encounter Summary ---
Author Organization [facility] Address [address] [place] [address] Phone Care Team Providers Care Youtuber Name Role Phone Oswaldo Serrano MD Primary Care Provider [phone] Angel Crowe DPCiara Unavailable [phone] Mora Fritz Unavailable Unavailable Ok Jorge MD Unavailable Orlin Urbina APRN, DIRECTOR DERMATOLOGY Unavailable [phone] Reason for Visit * Reason Comments Medication Refill Encounter Details Date Type Department Care Team (Late st Contact Info) Description 06/09/2023 Refill [facility] - [place] [address] [place] [address] Oswaldo Serrano MD #[address] [address] Medication Refill Social History Tobacco Use Types [...] Care Team (Ronan reed Contact Info) Description 07/17/2025 2:45 PM CDT Office Visit [facility] Medical [facility] - Family Medicine - [place] [address] [facility] [address] Oswaldo Serrano MD #[address] [address] 07/22/2025 2:30 PM CDT Office Visit [facility] - Endocrinology - [place] #2 [place] [address] Ok Jorge MD #[address] [place] [address] 07/30/2025 2:45 PM CDT Office Visit [facility] PHYSICIAN 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
--- OUTSIDE RECORDS SUMMARY | 2025-06-07 17:59 | XMS_ITS | Encounter Summary ---
Author Organization [facility] Address [address] [place] [address] Phone Care Team Providers Care Hospice Music Therapist Name Role Phone Oswaldo Serrano MD Primary Care Provider [phone] Angel Crowe DPM Unavailable [phone] Mora Fritz Unavailable Unavailable Ok Jorge MD Unavailable Orlin Urbina APRN, PERSONAL CARE ATTENDANT Unavailable [phone] Reason for Visit * Reason Comments Medication Refill Encounter Details Date Type Department Care Team (Late st Contact Info) Description 04/15/2021 Refill [facility] [address] [place] [address] Oswaldo Serrano MD #[address] [address] Medication Refill Social History Tobacco [...] CDT Office Visit [facility] Group - Family Medicine [facility] #2 [place] [address] Oswaldo Serrano MD #[address] [facility] [address] [place] [address] 07/22/2025 2:30 PM CDT Office Visit [facility] Medical Group - Endocrinology [facility] #2 [place] [address] Ok Jorge MD #[address] [facility] [address] [place] [address] 07/30/2025 2:45 PM CDT Office Visit [facility]YSICIAN GROUP UROLOGY #2 [place] [address] Orlin Urbina APRN, PERSONAL CARE ATTENDANT #2 [place] [address] documented as of this encounter Visit Diagnoses Not on filedocumented in this encounter Additional Health Concerns Infection Onset Date Last Indicated Resolved Time COVID - 19 07/28/2021 07/29/2021 08/17/2021 12:1 6 AM FLIGHT FOLLOWER Assessment Noted Time PHQ-9 Depression Total Score: 2 07/18/20 20 4:26 PM CDT documented as of this encounter Care Teams Hospice Music Therapist Relationship Specialty Start Date End Date Oswaldo Serrano MD #[address] [facility] [address] [place] [address] PCP - General Family Medicine 05/19/17 Angel Crowe DPM #[address] [facility] [address] [place] [address] Consulting Physician Podiatry 06/16/17 Mora Fritz [place] Behavioral Health Navigator 06/15/18 Ok Jorge MD #[address] [facility] [address] [place] [address] Consulting Physician Endocrinology 05/12/22 Orlin Urbina APRN, PERSONAL CARE ATTENDANT #2 [place] [address] Nurse Practitioner Advanced Practice Nurse 11/09/22 documented as of this encounter
[2025-06-07 19:09] VITALS: BP 95/51; PULSE 80; RESP 18; TEMP 36.3; O2SAT 98
--- NOTE | 2025-06-07 21:01 | PC.NURSE ---
Family reports pt has BG of 108. Pt given alysha crackers and white soda to maintain sugar levels.
[2025-06-07 22:35] VITALS: BP 98/48; PULSE 77; RESP 18; O2SAT 100
--- NOTE | 2025-06-07 23:40 | PC.NURSE ---
Pt verbally aggressive to staff and relative in the room. Pt is refusing vital signs recheck, continuous monitoring, or call light on bed. NAD noted at this time. Family remains at bedside.
[2025-06-08] VITALS (15 sets, daily range): BP systolic 72–131; BP diastolic 40–94; PULSE 62–101; RESP 14–47; TEMP 36.2–36.4; O2SAT 96–100; BMI 34.1
--- NOTE | 2025-06-08 00:29 | PC.NURSE ---
Patient moved from room 11 to room 7. Bed alarm under patient.
--- NOTE | 2025-06-08 00:43 | ED.GENADULT ---
HPI - General Adult General Chief complaint: Unspecified Stated complaint: Sent by [facility] Time Seen by Provider: 06/08/25 00:06 Source: patient and family Mode of arrival: EMS Limitations: other (patient is not cooperative with history ) History of Present Illness HPI narrative: This is a 64 year old female that presents to the ER for insulin dosing. Family members report they believed her insulin dosing was incorrect so they confronted her facility and they report they were told she had to leave and could not come back. She was just discharged to that facility after a stay at [facility] for heart failure. They were attempting to find her placement somewhere else, but were not able to with the holiday weekend. Related Data Home Medications ?Medication ?Instructions ?Recorded ?Confirmed ?Last Taken ?Type cholecalciferol (vitamin D3) 125 5,000 unit PO DAILY 02/23/25 03/05/25 03/05/25 History mcg (5,000 unit) tablet diphenhydramine HCl 2 % topical 1 applic topical Q6H PRN itching 02/23/25 03/05/25 Unknown History gel (Anti-Itch (diphenhydramine)) multivitamin-iron 9 mg-folic acid 1 tablet PO DAILY 02/23/25 03/05/25 Unknown History 400 mcg-calcium and minerals tablet (Thera-M) Allergies Allergy/AdvReac Type Severity Reaction Status Date / Time Sulfa (Sulfonamide Allergy Mild RASH Verified 06/08/25 03:12 Antibiotics) certain metals Allergy Unknown Unknown Uncoded 03/05/25 23:36 Review of Systems Review of Systems: All systems reviewed & are unremarkable except as noted in HPI and below PMFSH Past Medical History Medical History Thrombocytopenia Bacteremia Overactive bladder GERD (gastroesophageal reflux disease) Atrial fibrillation Pacemaker Hypothyroidism HTN (hypertension) Diabetes Surgical History Surgical History AICD (automatic cardioverter/defibrillator) present Family History Family History Mother Diabetes mellitus Epilepsy CAD (coronary artery disease) Stented coronary artery Dementia COVID Father Diabetes mellitus Sibling Hypertension Sibling Murder of sister Sibling Unknown family medical history Social History Social History Years smoked: 3 Smoking status: Never smoker Tobacco type: cigarettes Alcohol intake: never Substance use: unknown Substance use type: does not use Do You Feel Safe in your Home?: Yes Lack of Transportation: No Lack of Food: Never True Current Housing: I Have Housing Concerned About Future Housing: No Difficulty Paying Gas/Electric Bills: No Difficulty Paying for Meds: No Currently Unemployed: No Education: Grade School Difficulty w/ Childcare or Family Care: No Gender identity (if verbalized by the patient): Female Spiritual care concerns: No Exam Narrative: GENERAL: Chronically ill-appearing, well-nourished, and in no acute distress. HEAD: Normocephalic, atraumatic. EYES: EOMI. ENT: Nares clear, no rhinorrhea or epistaxis. Mucous membranes moist. Oropharynx without tonsillar hypertrophy exudate or other lesions. CHEST: Clear to auscultation. No respiratory distress. No wheezes rales or rhonchi HEART: Regular rate and rhythm. No murmur heard. Normal peripheral pulses. ABDOMEN: Soft, nontender, nondistended, normal active bowel sounds. EXTREMITIES: Normal range of motion. No edema. SKIN: Warm, dry, no rash. NEURO: No focal deficits. Alert and oriented x1. PSYCH: Normal mood and affect Course Vital Signs Vital signs: Vital Signs Temperature 97.4 F L 06/07/25 19:09 Pulse Rate 80 06/07/25 19:09 Respiratory Rate 18 06/07/25 19:09 Blood Pressure 95/51 L 06/07/25 19:09 Pulse Oximetry 98 06/07/25 19:09 Temperature 97.6 F 06/08/25 01:31 Pulse Rate 98 06/08/25 01:45 Respiratory Rate 20 06/08/25 01:45 Blood Pressure 100/80 06/08/25 01:31 Pulse Oximetry 100 06/08/25 01:45 Oxygen Delivery Room Air 06/08/25 00:46 Medical Decision Making MDM Narrative Medical decision making narrative: Patient presents to the emergency department after recently being discharged to [facility]. Family reports they confronted the facility about her insulin dosing thinking it was incorrect. They were told she needed to leave and cannot come back. Family cannot take care of her at home. They are unable to get her placed as it is a weekend. Blood pressure soft upon arrival, but this normalized without intervention. No concerning findings on her blood work or urine. Will be admitted for further placement Vital Signs Vital Signs: Vital Signs Temperature 97.4 F L 06/07/25 19:09 Pulse Rate 80 06/07/25 19:09 Respiratory Rate 18 06/07/25 19:09 Blood Pressure 95/51 L 06/07/25 19:09 Pulse Oximetry 98 06/07/25 19:09 Temperature 97.6 F 06/08/25 01:31 Pulse Rate 98 06/08/25 01:45 Respiratory Rate 20 06/08/25 01:45 Blood Pressure 100/80 06/08/25 01:31 Pulse Oximetry 100 06/08/25 01:45 Oxygen Delivery Room Air 06/08/25 00:46 Lab Data Lab results reviewed: Yes I reviewed the patient's lab results. 06/08/25 00:51 06/08/25 00:51 Labs: Lab Results 06/07/25 06/07/25 06/08/25 Range/Units 22:34 23:55 00:46 WBC (4.5-10.0) K/mm3 RBC (4.2-5.4) M/mm3 Hgb (12.0-15.0) g/dL Hct (37.0-47.0) % MCV (80-100) fl MCH (26-34) pg MCHC (32-36) g/dl RDW (11.5-14.5) % Plt Count (150-375) k/mm3 MPV (7.4-10.4) fl Immature Gran % (Auto) (0-0.5) % Neut % (Auto) (45.5-73.1) % Lymph % (Auto) (18.3-44.2) % [place] % (Auto) (2.6-8.5) % Eos % (Auto) (0-4.4) % Baso % (Auto) (0.2-1.2) % Lymph # (Auto) (0.9-3.2) K/mm3 [place] # (Auto) (0.1-0.6) K/mm3 Eos # (Auto) (0-0.3) K/mm3 Baso # (Auto) (0.0-0.1) K/mm3 Abs Immat Gran (auto) (0.00-0.031) K/mm3 Absolute Neuts (auto) (1.3-6.7) K/mm3 Absolute Nucleated RBC (0.0-0.012) K/mm3 Nucleated RBC % (0.0-0.2) % Sodium (137-145) mmol/L Potassium (3.4-5.0) mmol/L Chloride (98-107) mmol/L Carbon Dioxide (22-30) mmol/L Anion Gap (4-12) mmol/L BUN (7-17) mg/dL Creatinine (0.7-1.0) mg/dL Estim Creat Clear Calc ml/min Estimated GFR (59 - ) Glucose (65-110) mg/dL POC Capillary Glucose 170 H 192 H (65-105) mg/dl Calcium (8.4-10.2) mg/dL Total Bilirubin (0.2-1.3) mg/dL AST (14-36) U/L ALT (6-35) U/L Alkaline Phosphatase (38-126) U/L Total Protein (6.3-8.2) g/dL Albumin (3.5-5.1) g/dL Urine Color Dark yellow (Yellow) Urine Appearance Clear (Clear) Urine pH 5.0 (5.0-9.0) Ur Specific [place] 1.020 (1.001-1.035) Urine Protein Negative (Negative) mg/dL Urine Glucose (UA) 2+ H (Negative) mg/dL Urine Ketones Negative (Negative) mg/dL Ur Blood (Man) Negative (Negative) Urine Nitrate Negative (Negative) Urine Bilirubin Negative (Negative) Urine Urobilinogen 1.0 (<2.0) mg/dL Leukocyte Esterase Rfl Negative (Negative) LETICIA/UL 06/08/ Range/Units 00:51 WBC 4.1 L (4.5-10.0) K/mm3 RBC 4.23 (4.2-5.4) M/mm3 Hgb 14.2 (12.0-15.0) g/dL Hct 43.9 (37.0-47.0) % MCV 103.8 H (80-100) fl MCH 33.6 (26-34) pg MCHC 32.3 (32-36) g/dl RDW 15.9 H (11.5-14.5) % Plt Count 264 (150-375) k/mm3 MPV 9.5 (7.4-10.4) fl Immature Gran % (Auto) 0.5 (0-0.5) % Neut % (Auto) 50.5 (45.5-73.1) % Lymph % (Auto) 29.1 (18.3-44.2) % [place] % (Auto) 14.8 H (2.6-8.5) % Eos % (Auto) 3.6 (0-4.4) % Baso % (Auto) 1.5 H (0.2-1.2) % Lymph # (Auto) 1.20 (0.9-3.2) K/mm3 [place] # (Auto) 0.6 (0.1-0.6) K/mm3 Eos # (Auto) 0.2 (0-0.3) K/mm3 Baso # (Auto) 0.1 (0.0-0.1) K/mm3 Abs Immat Gran (auto) 0.02 (0.00-0.031) K/mm3 Absolute Neuts (auto) 2.1 (1.3-6.7) K/mm3 Absolute Nucleated RBC 0.000 (0.0-0.012) K/mm3 Nucleated RBC % 0.0 (0.0-0.2) % Sodium 132 L (137-145) mmol/L Potassium 4.9 (3.4-5.0) mmol/L Chloride 100 (98-107) mmol/L Carbon Dioxide 22 (22-30) mmol/L Anion Gap 10 (4-12) mmol/L BUN 22 H D (7-17) mg/dL Creatinine 0.83 (0.7-1.0) mg/dL Estim Creat Clear Calc 71 ml/min Estimated GFR > 60 (59 - ) Glucose 163 H (65-110) mg/dL POC Capillary Glucose (65-105) mg/dl Calcium 8.8 (8.4-10.2) mg/dL Total Bilirubin 2.8 H (0.2-1.3) mg/dL AST 70 H (14-36) U/L ALT 34 (6-35) U/L Alkaline Phosphatase 378 H (38-126) U/L Total Protein 7.5 (6.3-8.2) g/dL Albumin 3.5 (3.5-5.1) g/dL Urine Color (Yellow) Urine Appearance (Clear) Urine pH (5.0-9.0) Ur Specific [place] (1.001-1.035) Urine Protein (Negative) mg/dL Urine Glucose (UA) (Negative) mg/dL Urine Ketones (Negative) mg/dL Ur Blood (Man) (Negative) Urine Nitrate (Negative) Urine Bilirubin (Negative) Urine Urobilinogen (<2.0) mg/dL Leukocyte Esterase Rfl (Negative) LETICIA/UL Critical Care Time Critical Care Time Critical Care Time: No Discharge Plan Discharge Clinical Impression: Generalized weakness, Debility Patient Disposition: Still a Patient Condition: Stable Patient Language: Paraguayan Prescriptions: No Action cholecalciferol (vitamin D3) 125 mcg (5,000 unit) tablet 5,000 unit PO DAILY Anti-Itch (diphenhydramine) 2 % gel 1 applic topical Q6H PRN (Reason: itching) Thera-M 9 mg iron-400 mcg tablet 1 tablet PO DAILY hydrocortisone 1 % Cream 1 applic topical Q12HR PRN (Reason: Itching) Qty: 10 0RF lactulose 10 gram/15 mL Solution 10 g PO TID Qty: 300 0RF Home Medication 1 ea PO DAILY Qty: 1 0RF nortriptyline 10 mg Capsule 10 mg PO HS Qty: 30 0RF ramelteon 8 mg Tablet 8 mg PO HS PRN (Reason: sleep) Qty: 30 0RF Xarelto 10 mg Tablet 15 mg PO DAILY@1800 Qty: 30 0RF insulin glargine [Lantus U-100 Insulin] 100 unit/mL solution 15 unit subcut QHS Qty: 10 0RF furosemide 40 mg tablet 80 mg PO BID Qty: 60 0RF lidocaine [Aspercreme (lidocaine)] 4 % adhesive patch,medicated 1 patch topical DAILY PRN (Reason: back pain. ) Qty: 30 0RF polyethylene glycol 3350 [Miralax] 17 gram powder in packet 17 g PO DAILY PRN (Reason: constipation) Qty: 30 0RF metoprolol succinate 50 mg tablet extended release 24 hr 100 mg PO DAILY Qty: 60 0RF spironolactone 25 mg tablet 25 mg PO DAILY Qty: 30 0RF levothyroxine 75 mcg tablet 75 mcg PO QAM Qty: 30 0RF cefadroxil 500 mg capsule 500 mg PO Q12H Qty: 60 0RF magnesium oxide 400 mg (241.3 mg magnesium) tablet 400 mg PO DAILY Qty: 30 0RF ferrous sulfate [FeroSul] 325 mg (65 mg iron) tablet 325 mg PO DAILY Qty: 30 0RF docusate sodium 100 mg capsule 100 mg PO BID Qty: 60 0RF omeprazole 20 mg capsule,delayed release(DR/EC) 20 mg PO DAILY Qty: 30 0RF hydroxyzine HCl 25 mg tablet 25 mg PO Q4H PRN (Reason: itching or anxiety.) Qty: 30 0RF albuterol sulfate 90 mcg/actuation HFA aerosol inhaler 2 puff INHALATION Q6H PRN (Reason: shortness of breath or wheezing) Qty: 2 0RF fluticasone propionate [Flonase Allergy Relief] 50 mcg/actuation spray,suspension 1 spray intranasal DAILY PRN (Reason: allergy symptoms/Rhinitis.) Qty: 10 0RF Rx Instructions: administer into each nostril acetaminophen 500 mg capsule 500 mg PO Q6H PRN (Reason: pain (scale score 1-3) or fever.) Qty: 90 0RF escitalopram oxalate 10 mg tablet 10 mg PO DAILY Qty: 30 0RF Jardiance 10 mg tablet 10 mg PO DAILY Qty: 30 0RF Entresto 24-26 mg tablet 0.5 tablet PO BID Qty: 60 0RF Follow-up/Referrals: Zach,Oswaldo Rodriguez MD [Primary Care Provider, Unknown]
[2025-06-08 01:02] LABS: Add Urine Microscopic? YES; Appearance Urine Clear (Clear); Glucose Urine UA 2+ mg/dL (Negative); Leukocyte Esterase Ur Negative LEU/UL (Negative); Nitrate Urine Negative (Negative); Specific Grav Ur 1.020 (1.001-1.035)
[2025-06-08 01:04] LABS: Hematocrit 43.9 % (37.0-47.0); Hemoglobin 14.2 g/dL (12.0-15.0); Immature Granulocyte Percent A 0.5 % (0-0.5); Lymphocytes Absolute Auto 1.20 K/mm3 (0.9-3.2); Mean Corpuscular HGB Conc 32.3 g/dl (32-36); Mean Corpuscular Hemoglobin 33.6 pg (26-34); Mean Corpuscular Volume 103.8 fl (80-100); Nucleated Red Blood Cells Absolute Auto 0.000 K/mm3 (0.0-0.012); Nucleated Red Blood Cells Perc 0.0 % (0.0-0.2); Platelet Count Result 264 k/mm3 (150-375); Red Blood Count 4.23 M/mm3 (4.2-5.4); White Blood Count 4.1 K/mm3 (4.5-10.0)
--- OUTSIDE RECORDS SUMMARY | 2025-06-08 01:05 | XMS_ITS | Encounter Summary ---
Author Organization [facility] Address [address] [place] [address] Phone Care Team Providers Care Valve Machine Operator Name Role Phone Oswaldo Serrano MD Primary Care Provider Angel Crowe DPM Unavailable [phone] Mora Fritz Unavailable Unavailable Ok Jorge MD Unavailable Orlin Urbina APRN, YUDI Unavailable [phone] Reason for Visit * Reason Comments Medication Refill Encounter Details Date Type Department Care Team (Late st Contact Info) Description 10/28/2021 Refill [facility] [address] [place] [address] Edwar Romo MD #[address] [facility], [address] [address] Medication Refill Social History Tobacco Use Types [...] COVID-19? 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 documented as of this encounter Plan of Treatment Upcoming Encounters Date Type Department Care Team (Late st Contact Info) Description 07/17/2025 2:45 PM CDT Office Visit [facility] Medical Group - Family Medicine [facility] #2 [place] [address] Oswaldo Serrano MD #[address] [address] 07/22/2025 2:30 PM CDT Office Visit [facility] Medical [facility] - Endocrinology [facility] #2 [place] [address] Ok Jorge MD #2 [facility] [address] [place] [id number] 07/30/2025 2:45 PM CDT Office Visit [facility]Y #2 [place] [address] Orlin Urbina APRN, BIG DATA HADOOP DEVELOPER #2 [place] [address] documented as of this encounter Visit Diagnoses Diagnosis Nocturnal enuresis documented in this encounter Additional Health Concerns Assessment Noted Time PHQ-9 Depression Total Score: 2 07/18/20 20 4:26 PM CDT documented as of this encounter Care Teams Valve Machine Operator Relationship Specialty Start Date End Date Oswaldo Serrano MD #2 [facility] [address] [place] [address] PCP - General Family Medicine 05/19/17 Angel Crowe DPM #2 [facility] [address] [place] [address] Consulting Physician Podiatry 06/16/17 Mora Fritz [place] Behavioral Health Navigator 06/15/18 Ok Jorge MD #2 [facility] [address] [place] [address] Consulting Physician Endocrinology 05/12/22 Orlin Urbina, AB INITIO ETL DEVELOPER, BIG DATA HADOOP DEVELOPER #2 [place] [address] Nurse Practitioner Advanced Practice Nurse 11/09/22 documented as of this encounter
--- OUTSIDE RECORDS SUMMARY | 2025-06-08 01:05 | XMS_ITS | Encounter Summary ---
Author Organization [facility] Address [address] [place] [address] Phone Care Team Providers Care Plain Clothes Police Officer Name Role Phone Oswaldo Serrano MD Primary Care Provider Angel Crowe DPM Unavailable [phone] Mora Fritz Unavailable Unavailable Ok Jorge MD Unavailable Orlin Urbina APRN, EXPLORATION DRILLER Unavailable [phone] Reason for Visit * Reason Comments Medication Refill Encounter Details Date Type Department Care Team (Late st Contact Info) Description 09/17/2020 Refill [facility] - [facility] Medicine - [place] #2 [place] [address] Oswaldo Serrano MD #[address] [address] Medication Refill Social History Tobacco Use Types [...] COVID-19? No / Unsure 09/11/2020 1:18 PM SPORTS MEDICINE PHYSICIAN documented as of this encounter Miscellaneous [...] type 2 diabetes mellitus (HCC) [facility] - Family Medicine - Connor Hutchinson APN, CNP 2 months ago Acute diarrhea [facility] Family Medicine - Connor Hutchinson APN, CNP 3 months ago Tick bite, initial encounter [facility] Family [facility] - Oswaldo Moreno MD 3 months ago Diarrhea, unspecified type [facility] Family Medicine - Oswaldo Moreno MD Upcoming Appointments Future Appointments In 1 month Ok Jorge MD [facility] Medical Group - Endocrinology - Dhir[facility] SALOON KEEPER - Recent and Past Visits Recent Visits Date Type Provider Dept 09/16/20 Telemedicine Oswaldo Serrano MD [facility] 07/18/20 Office Visit Connor Yuan APN, YUDI [facility] [place] 07/11/20 Telemedicine Connor Yuan APN, YUDI [facility] 06/09/20 Office Visit Oswaldo Serrano, [facility] 05/29/20 Telemedicine Oswaldo Serrano, [facility] 04/07/20 Office Visit Connor Yuan APN, EXPLORATION DRILLER [facility] [place] 03/18/20 Telemedicine Oswaldo Serrano, [facility] 12/14/19 Office Visit Earl Merry Hendrickson, AIDEN [facility] [place] 08/28/19 Office Visit Oswaldo Serrano, [facility] [place] 06/22/19 Office Visit Connor Yuan APN, EXPLORATION DRILLER [facility] [place] Showing recent visits within past 460 days with a meds authorizing provider and meeting all other requirements Future Appointments No visits were found meeting these conditions. Showing future appointments within next 90 days with a meds authorizing provider and meeting all other requirements TS MEDICINE PHYSICIAN documented in this encounter Plan of Treatment Upcoming Encounters Date Type Department Care Team (Late st Contact Info) Description 07/17/2025 2:45 PM CDT Office Visit [facility] Medical Group - Family Medicine - [place] #2 [place] [address] Oswaldo Serrano MD #2 [facility] [address] [place] [address] 07/22/2025 2:30 PM CDT Office Visit [facility] - Endocrinology - [place] #2 [facility] [place] [address] Ok Jorge MD #2 [facility] [address] [place] [address] 07/30/2025 2:45 PM CDT Office Visit [facility] [place] [facility] #2 [place] [address] Orlin Urbina, RIGHT OF WAY BUYER, EXPLORATION DRILLER #2 [place] [address] documented as of this encounter Visit Diagnoses Not on filedocumented in this encounter Additional Health Concerns Infection Onset Date Last Indicated Resolved Time COVID - 19 10/09/2020 10/09/2020 10/11/2020 5:17 AM SPORTS MEDICINE PHYSICIAN COVID - 19 11/12/2020 11/12/2020 11/16/2020 9:49 AM SPORTS MEDICINE PHYSICIAN COVID - 19 07/28/2021 07/29/2021 08/17/2021 12:1 6 AM SPORTS MEDICINE PHYSICIAN Assessment Noted Time PHQ-9 Depression Total Score: 2 07/18/20 20 4:26 PM CDT documented as of this encounter Care Teams Plain Clothes Police Officer Relationship Specialty Start Date End Date Oswaldo Serrano MD #2 [facility] [address] [place] [address] PCP - General Family Medicine 05/19/17 Angel Crowe DPM #2 [facility] [address] [place] [address] Consulting Physician Podiatry 06/16/17 Mora Fritz Behavioral Health Navigator 06/15/18 Ok Jorge MD #2 [facility] [address] [place] [address] Consulting Physician Endocrinology 05/12/[address] BUYER, EXPLORATION DRILLER #2 [place] [address] Nurse Practitioner Advanced Practice Nurse 11/09/22 documented as of this encounter
--- OUTSIDE RECORDS SUMMARY | 2025-06-08 01:05 | XMS_ITS | Encounter Summary ---
Author Organization [facility] Address [address] [place] [address] Phone Care Team Providers Care Jira Developer Name Role Phone Oswaldo Serrano MD Primary Care Provider Angel Crowe DPCiara Unavailable [phone] Mora Fritz Unavailable Unavailable Ok Jorge MD Unavailable Orlin Urbina APRN, MACHINE STOPPAGE FREQUENCY CHECKER Unavailable [phone] Reason for Visit * Reason Comments Medication Refill Encounter Details Date Type Department Care Team (Late st Contact Info) Description 09/11/2021 Refill [facility] - [facility] Medicine - [place] [address] [place] [address] Oswaldo Serrano MD #[address] [address] Medication Refill Social History Tobacco Use Types [...] ago Acute bronchitis, unspecified organism [facility] Family [facility] - Connor Hutchinson APRN, YUDI 6 months ago [facility] 6 months ago [facility] 8 months ago [facility] Hutchinson APRN, YUDI Upcoming Appointments Future Appointments In 3 weeks Oswaldo Serrano MD 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 - Family Medicine - [place] #[address] [place] [address] Oswaldo Serrano MD #2 [facility] [address] [place] [address] 07/22/2025 2:30 PM CDT Office Visit [facility] - Endocrinology - [place] #2 [facility] [address] Ok Jorge MD #[address] [place] [address] 07/30/2025 2:45 PM CDT Office Visit [facility] #2 [facility] [place] [address] Orlin Urbina, LINUX SYSTEM ENGINEER, MACHINE STOPPAGE FREQUENCY CHECKER #2 [facility] [place] [address] documented as of this encounter Visit Diagnoses Not on filedocumented in this encounter Additional Health Concerns Assessment Noted Time PHQ-9 Depression Total Score: 2 07/18/20 20 4:26 PM CDT documented as of this encounter Care Teams Jira Developer Relationship Specialty Start Date End Date Oswaldo Serrano MD #[address] [place] [address] PCP - General Family Medicine 05/19/17 Angel Crowe DPM #2 [facility] [address] [place] [address] Consulting Physician Podiatry 06/16/17 Mora Fritz [place] Behavioral Health Navigator 06/15/18 Ok Jorge MD #2 [facility] [address] [place] [address] Consulting Physician Endocrinology 05/12/22 Orlin Urbina APRN, MACHINE STOPPAGE FREQUENCY CHECKER #2 [place] [address] Nurse Practitioner Advanced Practice Nurse 11/09/22 documented as of this encounter
--- OUTSIDE RECORDS SUMMARY | 2025-06-08 01:05 | XMS_ITS | Encounter Summary ---
Author Organization [facility] Address [address] [place] [address] Phone Care Team Providers Care Copier And Printer Field Technician Name Role Phone Oswaldo Serrano MD Primary Care Provider [phone] Angel Crowe DPM Unavailable [phone] Mora Fritz Unavailable Unavailable Ok Jorge MD Unavailable Orlin Urbina APRN, ENAMEL SHADER Unavailable [phone] Reason for Visit * Reason Comments Medication Refill Encounter Details Date Type Department Care Team (Late st Contact Info) Description 11/29/2024 Refill [facility] [place] [facility] #2 [place] [address] Orlin Urbina APRN, ENAMEL SHADER #2 [place] [address] Medication Refill Social History Tobacco Use Types [...] attend chur ch or yazidi services? Never 11/29/2024 Do you belong to any clubs o r organizations such as pentecostalism groups, unions, fraternal or athletic groups, or [...] Total Score - Questions 1-9 2 10/11 [facility] [place] of Occupat ional Health - Occupational Stress [...] in a fpc (including now)? No 11/09/2023 Housing Stability Vital Sign Answer Charlie e Recorded In the last 12 months, was t here a time when you were not able to pay the mortgage or rent on time? No 11/29/2024 In the past 12 months, how m any times have you moved where you were living? 0 11/29/2024 At any time in the past 12 m [facility], were you homeless or living in a fpc (including now)? No 11/29/2024 Education Answer Date [...] Assessment Author 0 11/29/2024 11:52 AM [facility] Background * Q1: How often do you have a drink containing alcohol? 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 Answer Date of Assessment Author Patient does not drink 11/29/2024 11:52 AM SEMICONDUCTOR PACKAGES SEALER [employer], System Background * Q3: How often do you have six or more drinks on one occasion? Answer Date of Assessment Author Never 11/29/2024 11:52 AM SEMICONDUCTOR PACKAGES SEALER [employer], System Background documented as of this encounter Miscellaneous Notes * Telephone Encounter - Orlin Urbina APRN, CNP - 12/10/2024 10:18 AM SEMICONDUCTOR PACKAGES SEALER duplicate CONDUCTOR PACKAGES SEALER * Telephone Encounter - Stephanie Ortiz RN [...] 08/10/24 Office Visit Connor Yuan APRN, CNP [facility] 03/08/24 Telemedicine Oswaldo Serrano MD [facility] 02/23/24 Office Visit Oswaldo Serrano MD [facility] 01/24/24 Office Visit Orlin Urbina APRN, CNP [facility] Dhiraj Showing recent visits within past 365 days and meeting all other requirements Today's Visits Date Type Provider Dept 11/29/24 Appointment [facility] Show[facility] today's visits and meeting all other requirements Future Appointments No visits were found meeting these conditions. Showing future appointments within next 90 days and meeting all other requirements CONDUCTOR PACKAGES SEALER documented in this encounter Plan of Treatment Upcoming Encounters Date Type Department Care Team (Late st Contact Info) Description 07/17/2025 2:45 PM CDT Office Visit [facility] Medical [facility] - Family Medicine - [place] #2 [place] [address] Oswaldo Serrano MD #2 [facility] [address] [place] [address] 07/22/2025 2:30 PM CDT Office Visit [facility] - Endocrinology - [place] #2 [place] [address] Ok Jorge MD #2 [facility] [address] [place] [address] 07/30/2025 2:45 PM CDT Office Visit [facility] #2 [place] [address] Orlin Urbina, BRICK CHIMNEY SUPERVISOR, ENAMEL SHADER #2 [place] [address] documented as of this encounter Visit Diagnoses Not on filedocumented in this encounter Additional Health Concerns Assessment Noted Time PHQ-9 Depression Total Score: 2 11/01/19 3:32 PM SEMICONDUCTOR PACKAGES SEALER documented as of this encounter Care Teams Copier And Printer Field Technician Relationship Specialty Start Date End Date Oswaldo Serrano MD #2 [facility] [address] [place] [address] PCP - General Family Medicine 05/19/17 Angel Crowe DPM #[address] [address] Consulting Physician Podiatry 06/16/17 Mora Fritz [place] Behavioral Health Navigator 06/15/18 Ok Jorge MD #[address] [address] Consulting Physician Endocrinology 05/12/22 Orlin Urbina APRN, ENAMEL SHADER #2 [place] [address] Nurse Practitioner Advanced Practice Nurse 11/09/22 documented as of this encounter
--- OUTSIDE RECORDS SUMMARY | 2025-06-08 01:05 | XMS_ITS | Encounter Summary ---
Author Organization [facility] Address [address] [place] [address] Phone Care Team Providers Care Modeling Analyst Name Role Phone Oswaldo Serrano MD Primary Care Provider [phone] Angel Crowe DPM Unavailable [phone] Mora Fritz Unavailable Unavailable Ok Jorge MD Unavailable Orlin Urbina APRN, AGILITY INSTRUCTOR Unavailable [phone] Reason for Visit * Reason Comments Medication Refill Encounter Details Date Type Department Care Team (Late st Contact Info) Description 07/31/2020 Refill [facility] - Family Medicine - [place] #2 [place] [address] Connor Yuan APRN, AGILITY INSTRUCTOR #[address] [address] Medication Refill Social History Tobacco Use Types [...] CDT VITAMIN D, 25 HYDROXY TOTAL Order: [id number] Status: Final result ?Visible to patient: Yes ([employer]) Dx: Vitamin D deficiency Ref Range & Units 3mo ago 2yr ago 3yr ago VITAMIN D, 25 HYDROX >=30 ng/mL 27Low 23Low 14Low Resulting Agency [facility] April 08, 2020 ? 7:17 AM Connor Yuan APN, YUDI routed this conversation to [facility] Nurse [place] Connor Yuan APN, YUDI ?? 7:16 AM Note Please call patient POA and let her know that her vitamin D was low. Will send over 3 months worth of prescription therapy and then recheck. Orders entered. [email or web address] message sent to patient to have vitamin D re checked. Has active order. documented in this encounter Plan of Treatment Upcoming Encounters Date Type Department Care Team (Late st Contact Info) Description 07/17/2025 2:45 PM CDT Office Visit [facility] Medical Group - Family [facility] #2 [place] [address] Oswaldo Serrano MD #[address] [address] 07/22/2025 2:30 PM CDT Office Visit [facility] - Endocrinology - [place] #2 [place] [address] Ok Jorge MD #[address] [address] 07/30/2025 2:45 PM CDT Office Visit [facility] UR[facility]Y #2 [place] [address] Orlin Urbina APRN, AGILITY INSTRUCTOR #2 [place] [address] documented as of this encounter Visit Diagnoses Diagnosis Vitamin D deficiency Unspecified vitamin D deficiency documented in this encounter Additional Health Concerns Infection Onset Date Last Indicated Resolved Time COVID - 19 10/09/2020 10/09/2020 10/11/2020 5:17 AM PARTS INTERPRETER COVID - 19 11/12/2020 11/12/2020 11/16/2020 9:49 AM PARTS INTERPRETER COVID - 19 07/28/2021 07/29/2021 08/17/2021 12:1 6 AM PARTS INTERPRETER Assessment Noted Time PHQ-9 Depression Total Score: 2 07/18/20 20 4:26 PM CDT documented as of this encounter Care Teams Modeling Analyst Relationship Specialty Start Date End Date Oswaldo Serrano MD #[address] [address] PCP - General Family Medicine 05/19/17 Angel Crowe DPM #[address] [address] Consulting Physician Podiatry 06/16/17 Mora Fritz [place] Behavioral Health Navigator 06/15/18 Ok Jorge MD #[address] [address] Consulting Physician Endocrinology 05/12/22 Orlin Urbina, TAPE STRINGER, AGILITY INSTRUCTOR #2 [place] [address] Nurse Practitioner Advanced Practice Nurse 11/09/22 documented as of this encounter
--- OUTSIDE RECORDS SUMMARY | 2025-06-08 01:05 | XMS_ITS | Encounter Summary ---
Author Organization [facility] Address [address] [place] [address] Phone Care Team Providers Care Dry Kiln Operator Helper Name Role Phone Oswaldo Serrano MD Primary Care Provider [phone] Angel Crowe DPM Unavailable [phone] Mora Fritz Unavailable Unavailable Ok Jorge MD Unavailable Orlin Urbina APRN, HEADLINER INSTALLER Unavailable [phone] Reason for Visit * Reason Comments Medication Refill Encounter Details Date Type Department Care Team (Late st Contact Info) Description 01/21/2022 Refill [facility] [place] [facility] #2 [place] [address] Orlin Urbina APRN, HEADLINER INSTALLER #2 [place] [address] Medication Refill Social History Tobacco Use Types [...] [facility] - Family Medicine - [place] #[address] [place] [address] Oswaldo Serrano MD #[address] [address] 07/22/2025 2:30 PM CDT Office Visit [facility] - Endocrinology - [place] #[address] [place] [address] Ok Jorge MD #[address] [address] 07/30/2025 2:45 PM CDT Office Visit [facility] #2 [place] [address] Orlin Urbina APRN, HEADLINER INSTALLER #2 [place] [address] documented as of this encounter Visit Diagnoses Diagnosis Nocturnal enuresis OAB (overactive bladder) Hypertonicity of bladder documented in this encounter Additional Health Concerns Assessment Noted Time PHQ-9 Depression Total Score: 2 07/18/20 20 4:26 PM CDT documented as of this encounter Care Teams Dry Kiln Operator Helper Relationship Specialty Start Date End Date Oswaldo Serrano MD #[address] [address] PCP - General Family Medicine 05/19/17 Angel Crowe DPM #[address] [address] Consulting Physician Podiatry 06/16/17 Mora Fritz [place] Behavioral Health Navigator 06/15/18 Ok Jorge MD #[address] [address] Consulting Physician Endocrinology 05/12/22 Orlin Urbina APRN, HEADLINER INSTALLER #2 [place] [address] Nurse Practitioner Advanced Practice Nurse 11/09/22 documented as of this encounter
--- OUTSIDE RECORDS SUMMARY | 2025-06-08 01:05 | XMS_ITS | Encounter Summary ---
Author Organization [facility] Address [address] [place] [address] Phone Care Team Providers Care Type Inspector Name Role Phone Oswaldo Serrano MD Primary Care Provider [phone] Angel Crowe DPCiara Unavailable [phone] Mora Fritz Unavailable Unavailable Ok Jorge MD Unavailable Orlin Urbina APRN, MANAGER MORTGAGE Unavailable [phone] Reason for Visit * Reason Comments Medication Refill Encounter Details Date Type Department Care Team (Late st Contact Info) Description 10/14/2021 Refill [facility] - Family Medicine - [place] [address] [place] [address] Oswaldo Serrano MD #[address] [address] Medication Refill Social History Tobacco Use Types [...] COVID-19? No / Unsure 10/07/2021 3:45 PM PURCHASE ANALYST documented as of this encounter Miscellaneous Notes [...] [place] 05/14/21 Office Visit Connor Yuan APRN, MANAGER MORTGAGE [facility] 02/27/21 Office Visit Oswaldo Serrano MD [facility] 02/16/21 Office Visit Oswaldo Serrano MD [facility] 01/14/21 Office Visit Connor Yuan APRN, MANAGER MORTGAGE [facility] 12/19/20 Office Visit Oswaldo Serrano MD [facility] 12/18/20 Telemedicine Oswaldo Serrano MD [facility] 12/08/20 Telemedicine [facility] 11/07/20 Telemedicine Connor Yuan APRN, YUDI [facility] Showing recent visits within past 365 days and meeting all other requirements Future Appointments Date Type Provider Dept 01/05/22 Appointment Oswaldo Serrano MD [facility] Showing future appointments within next 90 days and meeting all other requirements HASE ANALYST documented in this encounter Plan of Treatment Upcoming Encounters Date Type Department Care Team (Late st Contact Info) Description 07/17/2025 2:45 PM CDT Office Visit [facility] Medical [facility] - Family Medicine - [place] #2 [place] [address] Oswaldo Serrano MD #[address] [address] 07/22/2025 2:30 PM CDT Office Visit [facility] - Endocrinology - [place] #2 [place] [address] Ok Jorge MD #[address] [address] 07/30/2025 2:45 PM CDT Office Visit [facility] #2 [place] [address] Orlin Urbina, ONCOLOGY RADIATION PHYSICIAN, MANAGER MORTGAGE #2 [place] [address] documented as of this encounter Visit Diagnoses Not on filedocumented in this encounter Additional Health Concerns Assessment Noted Time PHQ-9 Depression Total Score: 2 07/18/20 20 4:26 PM CDT documented as of this encounter Care Teams Type Inspector Relationship Specialty Start Date End Date Oswaldo Serrano MD #2 [facility] [address] [place] [address] PCP - General Family Medicine 05/19/17 Angel Crowe DPM #2 [facility] [address] [place] [address] Consulting Physician Podiatry 06/16/17 Mora Fritz Behavioral Health Navigator 06/15/18 Ok Jorge MD #2 [facility] [address] [place] [address] Consulting Physician Endocrinology 05/12/22 Orlin Urbina, ONCOLOGY RADIATION PHYSICIAN, MANAGER MORTGAGE #2 [place] [address] Nurse Practitioner Advanced Practice Nurse 11/09/22 documented as of this encounter
--- OUTSIDE RECORDS SUMMARY | 2025-06-08 01:05 | XMS_ITS | Encounter Summary ---
Author Organization [facility] Address [address] [place] [address] Phone Care Team Providers Care Wagon Washer Name Role Phone Oswaldo Serrano MD Primary Care Provider [phone] Angel Crowe DPM Unavailable [phone] Mora Fritz Unavailable Unavailable Ok Jorge MD Unavailable Orlin Urbina APRN, PRICING CONSULTANT Unavailable [phone] Reason for Visit * Reason Comments Medication Refill Encounter Details Date Type Department Care Team (Late st Contact Info) Description 01/21/2022 Refill [facility] - Family Medicine - [place] #2 [place] [address] Connor Yuan APRN, PRICING CONSULTANT #[address] [address] Medication Refill Social History Tobacco Use Types [...] 2:45 PM CDT Office Visit [facility] Group - Family Medicine - [place] #2 [place] [address] Oswaldo Serrano MD #[address] [address] 07/22/2025 2:30 PM CDT Office Visit [facility] - Endocrinology - [place] #2 [place] [address] Ok Jorge MD #[address] [address] 07/30/2025 2:45 PM CDT Office Visit [facility] UROLOGY #2 [place] [address] Orlin Urbina, FENCE LABORER, PRICING CONSULTANT #2 [place] [address] documented as of this encounter Visit Diagnoses Diagnosis Chronic congestive heart failure, unspecified heart failure type (HCC) documented in this encounter Additional Health Concerns Assessment Noted Time PHQ-9 Depression Total Score: 2 07/18/20 20 4:26 PM CDT documented as of this encounter Care Teams Wagon Washer Relationship Specialty Start Date End Date Oswaldo Serrano MD #2 [facility] [address] [place] [address] PCP - General Family Medicine 05/19/17 Angel Crowe DPM #2 [facility] [address] [place] [address] Consulting Physician Podiatry 06/16/17 Mora Fritz [place] Behavioral Health Navigator 06/15/18 Ok Jorge MD #2 [facility] [address] [place] [address] Consulting Physician Endocrinology 05/12/22 Orlin Urbina, FENCE LABORER, PRICING CONSULTANT #2 [place] [address] Nurse Practitioner Advanced Practice Nurse 11/09/22 documented as of this encounter
--- OUTSIDE RECORDS SUMMARY | 2025-06-08 01:05 | XMS_ITS | Encounter Summary ---
Author Organization [facility] Address [address] [place] [address] Phone Care Team Providers Care Cabinet And Trim Installer Name Role Phone Oswaldo Serrano MD Primary Care Provider [phone] Angel Crowe DPM Unavailable [phone] Mora Fritz Unavailable Unavailable Ok Jorge MD Unavailable Orlin Urbina APRN, SPRAY DRIER OPERATOR Unavailable [phone] Reason for Visit * Reason Comments Medication Refill Encounter Details Date Type Department Care Team (Late st Contact Info) Description 01/15/2022 Refill [facility] [place] [facility] #2 [place] [address] Orlin Urbina APRN, SPRAY DRIER OPERATOR #2 [place] [address] Medication Refill Social History Tobacco Use Types [...] [place] 10/27/21 Office Visit Orlin Urbina APRN, SPRAY DRIER OPERATOR [facility] [place] 10/07/21 Office Visit Oswaldo Serrano MD [facility] 07/28/21 Telemedicine Oswaldo Serrano MD [facility] [place] 05/14/21 Office Visit Connor Yuan APRN, SPRAY DRIER OPERATOR [facility] [place] 02/27/21 Office Visit Oswaldo Serrano MD [facility] [place] 02/16/21 Office Visit Oswaldo Serrano MD [facility] Showing recent visits within past 365 [...] Description 07/17/2025 2:45 PM CDT Office Visit [facility] - [facility] Medicine [facility] #2 [place] [address] Oswaldo Serrano MD #2 [facility] [address] [place] [address] 07/22/2025 2:30 PM CDT Office Visit [facility] - Endocrinology - [place] #2 [place] [address] Ok Jorge MD #2 [facility] [address] [place] [address] 07/30/2025 2:45 PM CDT Office Visit [facility] #2 [place] [address] Orlin Urbina APRN, SPRAY DRIER OPERATOR #2 [place] [address] documented as of this encounter Visit Diagnoses Diagnosis Nocturnal enuresis OAB (overactive bladder) Hypertonicity of bladder documented in this encounter Additional Health Concerns Assessment Noted Time PHQ-9 Depression Total Score: 2 07/18/20 20 4:26 PM CDT documented as of this encounter Care Teams Cabinet And Trim Installer Relationship Specialty Start Date End Date Oswaldo Serrano MD #2 [facility] [address] [place] [address] PCP - General Family Medicine 05/19/17 Angel Crowe DPM #2 [facility] [address] [place] [address] Consulting Physician Podiatry 06/16/17 Mora Fritz [place] Behavioral Health Navigator 06/15/18 Ok Jorge MD #2 [facility] [address] [place] [address] Consulting Physician Endocrinology 05/12/22 Orlin Urbina, PRESCHOOL ASSISTANT TEACHER, SPRAY DRIER OPERATOR #2 [place] [address] Nurse Practitioner Advanced Practice Nurse 11/09/22 documented as of this encounter
--- OUTSIDE RECORDS SUMMARY | 2025-06-08 01:05 | XMS_ITS | Encounter Summary ---
Author Organization [facility] Address [address] [place] [address] Phone Care Team Providers Care Agriculture Internship Name Role Phone Oswaldo Serrano MD Primary Care Provider [phone] Angel Crowe DPCiara Unavailable [phone] Mora Fritz Unavailable Unavailable Ok Jorge MD Unavailable Orlin Urbina APRN, CERTIFIED EMERGENCY VEHICLE TECHNICIAN Unavailable [phone] Reason for Visit * Reason Comments Medication Refill Encounter Details Date Type Department Care Team (Late st Contact Info) Description 01/15/2022 [facility]ill [facility] - [place] [address] [place] [address] Oswaldo Serrano MD #[address] [address] Medication Refill Social History Tobacco Use Types [...] [facility] Group - Family Medicine - [place] #2 [facility] [address] Oswaldo Serrano MD #[address] [place] [address] 07/22/2025 2:30 PM CDT Office Visit [facility] Endocrinology - [place] #2 [place] [address] Ok Jorge MD #[address] [place] [address] 07/30/2025 2:[address] [facility] #2 [place] [address] Orlin Urbina APRN, CERTIFIED EMERGENCY VEHICLE TECHNICIAN #2 [place] [address] documented as of this encounter Visit Diagnoses Not on filedocumented in this encounter Additional Health Concerns Assessment Noted Time PHQ-9 Depression Total Score: 2 07/18/20 20 4:26 PM CDT documented as of this encounter Care Teams Agriculture Internship Relationship Specialty Start Date End Date Oswaldo Serrano MD #[address] [place] [address] PCP - General Family Medicine 05/19/17 Angel Crowe DPM #[address] [place] [address] Consulting Physician Podiatry 06/16/17 Mora Fritz [place] Behavioral Health Navigator 06/15/18 Ok Jorge MD #[address] [address] Consulting Physician Endocrinology 05/12/22 Orlin Urbina, SUPERVISOR CONTINUOUS WELD PIPE MILL, CERTIFIED EMERGENCY VEHICLE TECHNICIAN #2 [place] [address] Nurse Practitioner Advanced Practice Nurse 11/09/22 documented as of this encounter
--- OUTSIDE RECORDS SUMMARY | 2025-06-08 01:05 | XMS_ITS | Encounter Summary ---
Author Organization [facility] Address [address] [place] [address] Phone Care Team Providers Care Workers' Compensation Commissioner Name Role Phone Oswaldo Serrano MD Primary Care Provider [phone] Angel Crowe DPM Unavailable [phone] Mora Fritz Unavailable Unavailable Ok Jorge MD Unavailable Orlin Urbina APRN, ASSEMBLER DIELECTRIC HEATER Unavailable [phone] Reason for Visit * Reason Comments Medication Refill Encounter Details Date Type Department Care Team (Late st Contact Info) Description 01/19/2022 Refill [facility] [place] [facility] #2 [place] [address] Orlin Urbina APRN, ASSEMBLER DIELECTRIC HEATER #2 [place] [address] Medication Refill Social History Tobacco Use Types [...] Description 07/17/2025 2:45 PM CDT Office Visit [facility] Medical Group - Family Medicine [facility] #2 [place] [address] Oswaldo Serrano MD #[address] [address] 07/22/2025 2:30 PM CDT Office Visit [facility] Medical [facility] - Endocrinology [facility] #2 [place] [address] Ok Jorge MD #[address] [phone] 07/30/2025 2:45 PM CDT Office Visit [facility] #2 [place] [address] Orlin Urbina APRN, ASSEMBLER DIELECTRIC HEATER #2 [place] [address] documented as of this encounter Visit Diagnoses Diagnosis Nocturnal enuresis OAB (overactive bladder) Hypertonicity of bladder documented in this encounter Additional Health Concerns Assessment Noted Time PHQ-9 Depression Total Score: 2 07/18/20 20 4:26 PM CDT documented as of this encounter Care Teams Workers' Compensation Commissioner Relationship Specialty Start Date End Date Oswaldo Serrano MD #2 [facility] [address] [place] [address] PCP - General Family Medicine 05/19/17 Angel Crowe DPM #2 [facility] [address] [place] [address] Consulting Physician Podiatry 06/16/17 Mora Fritz Behavioral Health Navigator 06/15/18 Ok Jorge MD #2 [facility] [address] [place] [address] Consulting Physician Endocrinology 05/12/22 Orlin Urbina APRN, ASSEMBLER DIELECTRIC HEATER #2 [place] [address] Nurse Practitioner Advanced Practice Nurse 11/09/22 documented as of this encounter
--- OUTSIDE RECORDS SUMMARY | 2025-06-08 01:05 | XMS_ITS | Encounter Summary ---
Author Organization [facility] Address [address] [place] [address] Phone Care Team Providers Care Automation Qa Analyst Name Role Phone Oswaldo Serrano MD Primary Care Provider [phone] Angel Crowe DPM Unavailable [phone] Mora Fritz Unavailable Unavailable Ok Jorge MD Unavailable Orlin Urbina APRN, FINGERNAIL TECHNICIAN Unavailable [phone] Reason for Visit * Reason Comments Medication Refill Encounter Details Date Type Department Care Team (Late st Contact Info) Description 05/10/2022 Refill [facility] - [place] #2 [place] [address] Ok Jorge MD #[address] [address] Medication Refill Social History Tobacco [...] H[facility]PITAL [facility] - Family Medicine - [place] #2 [place] [address] Oswaldo Serrano MD #2 [facility] [address] [place] [address] 07/22/2025 2:30 PM CDT Office Visit [facility] - Endocrinology - [place] #2 [place] [address] Ok Jorge MD #2 [facility] [address] [place] [address] 07/30/2025 2:45 PM CDT Office Visit [facility] UR[facility]Y #2 [place] [address] Orlin Urbina APRN, FINGERNAIL TECHNICIAN #2 [place] [address] documented as of this encounter Visit Diagnoses Not on filedocumented in this encounter Additional Health Concerns Assessment Noted Time PHQ-9 Depression Total Score: 2 07/18/20 20 4:26 PM CDT documented as of this encounter Care Teams Automation Qa Analyst Relationship Specialty Start Date End Date Oswaldo Serrano MD #2 [facility] [address] [place] [address] PCP - General Family Medicine 05/19/17 Angel Crowe DPM #2 [facility] [address] [place] [address] Consulting Physician Podiatry 06/16/17 Mora Fritz [place] Behavioral Health Navigator 06/15/18 Ok Jorge MD #2 [facility] [address] [place] [address] Consulting Physician Endocrinology 05/12/22 Orlin Urbina APRN, FINGERNAIL TECHNICIAN #2 [place] [address] Nurse Practitioner Advanced Practice Nurse 11/09/22 documented as of this encounter
--- OUTSIDE RECORDS SUMMARY | 2025-06-08 01:05 | XMS_ITS | Encounter Summary ---
Author Organization [facility] Address [address] [place] [address] Phone Care Team Providers Care Broker Name Role Phone Oswaldo Serrano MD Primary Care Provider Angel Crowe DPM Unavailable [phone] Mora Fritz Unavailable Unavailable Ok Jorge MD Unavailable Orlin Urbina APRN, HOSE STRIPPER Unavailable [phone] Reason for Visit * Reason Comments Medication Refill Encounter Details Date Type Department Care Team (Late st Contact Info) Description 02/03/2022 Refill [facility] #[address] [place] [address] Oswaldo Serrano MD #[address] [address] Medication Refill Social History Tobacco Use Types [...] Hear[place] 10/27/21 Office Visit Orlin Urbina APRN, HOSE STRIPPER [facility] Dh[place] 10/07/21 Office Visit Oswaldo Serrano MD [facility] 07/28/21 Telemedicine Oswaldo Serrano MD [facility] 05/14/21 Office Visit Connor Yuan APRN, HOSE STRIPPER [facility] Dhiraj 02/27/21 Office [...] [place] 10/27/21 Office Visit Orlin Urbina APRN, HOSE STRIPPER [facility] Urology [place] 10/07/21 Office Visit Oswaldo Serrano MD [facility] 07/28/21 Telemedicine Oswaldo Serrano MD [facility] 05/14/21 Office Visit Connor Yuan APRN, HOSE STRIPPER [facility] Dhiraj 02/27/21 Office [...] Description 07/17/2025 2:45 PM CDT Office Visit [facility] Medical Group - Family Medicine - [place] #2 [place] [address] Oswaldo Serrano MD #[address] [address] 07/22/2025 2:30 PM CDT Office Visit [facility] - Endocrinology - [place] #2 [place] [address] Ok Jorge MD #[address] [address] 07/30/2025 2:45 PM CDT Office Visit [facility] #2 [place] [address] Orlin Urbina APRN, HOSE STRIPPER #2 [place] [address] documented as of this encounter Visit Diagnoses Not on filedocumented in this encounter Additional Health Concerns Assessment Noted Time PHQ-9 Depression Total Score: 2 07/18/20 20 4:26 PM CDT documented as of this encounter Care Teams Broker Relationship Specialty Start Date End Date Oswaldo Srerano MD #[address] [address] PCP - General Family Medicine 05/19/17 Angel Crowe DPM #[address] [address] Consulting Physician Podiatry 06/16/17 Mora Fritz Behavioral Health Navigator 06/15/18 Ok Jorge MD #[address] [address] Consulting Physician Endocrinology 05/12/22 Orlin Urbina, WORKING MANAGER, HOSE STRIPPER #2 [place] [address] Nurse Practitioner Advanced Practice Nurse 11/09/22 documented as of this encounter
--- OUTSIDE RECORDS SUMMARY | 2025-06-08 01:05 | XMS_ITS | Encounter Summary ---
Author Organization [facility] Address [address] [place] [address] Phone Care Team Providers Care Geophysical E Logger Name Role Phone Oswaldo Serrano MD Primary Care Provider [phone] Angel Crowe DPM Unavailable [phone] Mora Fritz Unavailable Unavailable Ok Jorge MD Unavailable Orlin Urbina APRN, MANAGER COLLEGE Unavailable [phone] Reason for Visit * Reason Comments Medication Refill Encounter Details Date Type Department Care Team (Late st Contact Info) Description 08/20/2020 Refill [facility] Family Medicine - [place] #2 [place] [address] Connor Yuan APRN, MANAGER COLLEGE #[address] [address] Medication Refill Social History Tobacco Use Types [...] COVID-19? No / Unsure 08/11/2020 2:55 PM PRE FABRICATOR documented as of this encounter Miscellaneous Notes * Telephone Encounter - Connie Gamez RN - 08/20/2020 4:35 PM CST Request for this Med has been requested four times today. FABRICATOR documented in this encounter Plan of Treatment Upcoming Encounters Date Type Department Care Team (Late st Contact Info) Description 07/17/2025 2:45 PM CDT Office Visit [facility] Medical Group - Family Medicine [facility] #2 [place] [address] Oswaldo Serrano MD #2 [facility] [address] [place] [address] 07/22/2025 2:30 PM CDT Office Visit [facility] - Endocrinology - [place] #2 [place] [address] Ok Jorge MD #2 [facility] [address] [place] [address] 07/30/2025 2:45 PM CDT Office Visit [facility] UR[facility]Y #2 [place] [address] Orlin Urbina APRN, MANAGER COLLEGE #2 [place] [address] documented as of this encounter Visit Diagnoses Diagnosis Vitamin D deficiency Unspecified vitamin D deficiency documented in this encounter Additional Health Concerns Infection Onset Date Last Indicated Resolved Time COVID - 19 10/09/2020 10/09/2020 10/11/2020 5:17 AM PRE FABRICATOR COVID - 19 11/12/2020 11/12/2020 11/16/2020 9:49 AM PRE FABRICATOR COVID - 19 07/28/2021 07/29/2021 08/17/2021 12:1 6 AM PRE FABRICATOR Assessment Noted Time PHQ-9 Depression Total Score: 2 07/18/20 4:26 PM CDT documented as of this encounter Care Teams Geophysical E Logger Relationship Specialty Start Date End Date Oswaldo Serrano MD #2 [facility] [address] [place] [address] PCP - General Family Medicine 05/19/17 Angel Crowe DPM #2 [facility] [address] [place] [address] Consulting Physician Podiatry 06/16/17 Mora Fritz [place] Behavioral Health Navigator 06/15/18 Ok Jorge MD #2 [facility] [address] [place] [address] Consulting Physician Endocrinology 05/12/22 Orlin Urbina APRN, MANAGER COLLEGE #2 [place] [address] Nurse Practitioner Advanced Practice Nurse 11/09/22 documented as of this encounter
--- OUTSIDE RECORDS SUMMARY | 2025-06-08 01:05 | XMS_ITS | Encounter Summary ---
Author Organization [facility] Address [address] [place] [address] Phone Care Team Providers Care College Instructor Name Role Phone Oswaldo Serrano MD Primary Care Provider [phone] Angel Crowe DPCiara Unavailable [phone] Mora Fritz Unavailable Unavailable Ok Jorge MD Unavailable Orlin Urbina APRN, STEREO COMPILER Unavailable [phone] Reason for Visit * Reason Comments Medication Refill Encounter Details Date Type Department Care Team (Late st Contact Info) Description 05/19/2022 Refill [facility] - [place] #[address] [place] [address] Oswaldo Serrano MD #[address] [address] Medication Refill Social History Tobacco Use Types [...] [facility] 07/28/21 Telemedicine [facility] Showing recent visits within past 365 [...] Group - Family Medicine - [place] #2 [place] [address] Oswaldo Serrano MD #[address] [address] 07/22/2025 2:30 PM CDT Office Visit [facility] - Endocrinology - [place] #2 [place] [address] Ok Jorge MD #[address] [address] 07/30/2025 2:45 PM CDT Office Visit [facility] UROLOGY #2 [place] [address] Orlin Urbina APRN, STEREO COMPILER #2 [place] [address] documented as of this encounter Visit Diagnoses Not on filedocumented in this encounter Additional Health Concerns Assessment Noted Time PHQ-9 Depression Total Score: 2 07/18/20 20 4:26 PM CDT documented as of this encounter Care Teams College Instructor Relationship Specialty Start Date End Date Oswaldo Serrano MD #[address] [address] PCP - General Family Medicine 05/19/17 Angel Crowe DPM #[address] [address] Consulting Physician Podiatry 06/16/17 Mora Fritz [place] Behavioral Health Navigator 06/15/18 Ok Jorge MD #[address] [address] Consulting Physician Endocrinology 05/12/22 Orlin Urbina APRN, STEREO COMPILER #2 [place] [address] Nurse Practitioner Advanced Practice Nurse 11/09/22 documented as of this encounter
--- OUTSIDE RECORDS SUMMARY | 2025-06-08 01:05 | XMS_ITS | Encounter Summary ---
Author Organization [facility] Address [address] [place] [address] Phone Care Team Providers Care Graduate Studies Dean Name Role Phone Oswaldo Serrano MD Primary Care Provider Angel Crowe DPM Unavailable [phone] Mora Fritz Unavailable Unavailable Ok Jorge MD Unavailable Orlin Urbina APRN, TIER LIFT TRUCK OPERATOR Unavailable [phone] Reason for Visit * Reason Comments Medication Refill Encounter Details Date Type Department Care Team (Late st Contact Info) Description 01/26/2022 Refill [facility] #[address] [place] [address] Oswaldo Serrano MD #[address] [address] Medication Refill Social History Tobacco Use Types [...] [place] 10/27/21 Office Visit Orlin Urbina APRN, TIER LIFT TRUCK OPERATOR [facility] [place] 10/07/21 Office Visit Oswaldo Serrano MD [facility] 07/28/21 Telemedicine Oswaldo Serrano MD [facility] 05/14/21 Office Visit Connor Yuan APRN, TIER LIFT TRUCK OPERATOR [facility] [place] 02/27/21 Office Visit Oswaldo Serrano MD [facility] 02/16/21 Office Visit Oswaldo Serrano MD [facility] Showing recent visits within past 365 days [...] Description 07/17/2025 2:45 PM CDT Office Visit [facility] - Family Medicine - [place] #2 [place] [address] Oswaldo Serrano MD #2 [facility] [address] [place] [address] 07/22/2025 2:30 PM CDT Office Visit [facility] - Endocrinology - [place] #2 [place] [address] Ok Jorge MD #2 [facility] [address] [place] [address] 07/30/2025 2:45 PM CDT Office Visit [facility] UROLOGY #2 [place] [address] Orlin Urbina APRN, TIER LIFT TRUCK OPERATOR #2 [place] [address] documented as of this encounter Visit Diagnoses Diagnosis Nocturnal enuresis OAB (overactive bladder) Hypertonicity of bladder documented in this encounter Additional Health Concerns Assessment Noted Time PHQ-9 Depression Total Score: 2 07/18/20 20 4:26 PM CDT documented as of this encounter Care Teams Graduate Studies Dean Relationship Specialty Start Date End Date Oswaldo Serrano MD #2 [facility] [address] [place] [address] PCP - General Family Medicine 05/19/17 Angel Crowe DPM #2 [facility] [address] [place] [address] Consulting Physician Podiatry 06/16/17 Mora Fritz Behavioral Health Navigator 06/15/18 Ok Jorge MD #2 [facility] [address] [place] [address] Consulting Physician Endocrinology 05/12/22 Orlin Urbina APRN, TIER LIFT TRUCK OPERATOR #2 [place] [address] Nurse Practitioner Advanced Practice Nurse 11/09/22 documented as of this encounter
--- OUTSIDE RECORDS SUMMARY | 2025-06-08 01:05 | XMS_ITS | Encounter Summary ---
Author Organization [facility] Address [address] [place] [address] Phone Care Team Providers Care Certified Scrub Tech Name Role Phone Oswaldo Serrano MD Primary Care Provider [phone] Angel Crowe DPCiara Unavailable [phone] Mora Fritz Unavailable Unavailable Ok Jorge MD Unavailable Orlin Urbina APRN, PRINTING EQUIPMENT MECHANIC Unavailable [phone] Reason for Visit * Reason Comments Medication Refill Encounter Details Date Type Department Care Team (Late st Contact Info) Description 06/16/2022 Refill [facility] - Family Medicine - [place] #[address] [place] [address] Oswaldo Serrano MD #[address] [address] Medication Refill Social History Tobacco Use Types [...] [place] 01/05/22 Office Visit Oswaldo Serrano MD [facility] Dhiraj Showing recent visits within past 182 [...] Description 07/17/2025 2:45 PM CDT Office Visit [facility] Medical Group - Family Medicine - [place] #[address] [place] [address] Oswaldo Serrano MD #[address] [place] [address] 07/22/2025 2:30 PM CDT Office Visit [facility] - Endocrinology - [place] #2 [place] [address] Ok Jorge MD #[address] [place] [address] 07/30/2025 2:45 PM CDT Office Visit [facility] UROLOGY #2 [place] [address] Orlin Urbina, LABORATORY ASSOCIATE, PRINTING EQUIPMENT MECHANIC #2 [place] [address] documented as of this encounter Visit Diagnoses Not on filedocumented in this encounter Additional Health Concerns Assessment Noted Time PHQ-9 Depression Total Score: 2 07/18/20 20 4:26 PM CDT documented as of this encounter Care Teams Certified Scrub Tech Relationship Specialty Start Date End Date Oswaldo Serrano MD #[address] [address] PCP - General Family Medicine 05/19/17 Angel Crowe DPM #[address] [address] Consulting Physician Podiatry 06/16/17 Mora Fritz [place] Behavioral Health Navigator 06/15/18 Ok Jorge MD #[address] [address] Consulting Physician Endocrinology 05/12/22 Orlin Urbina APRN, PRINTING EQUIPMENT MECHANIC #2 [place] [address] Nurse Practitioner Advanced Practice Nurse 11/09/22 documented as of this encounter
--- OUTSIDE RECORDS SUMMARY | 2025-06-08 01:05 | XMS_ITS | Encounter Summary ---
Author Organization [facility] Address [address] [place] [address] Phone Care Team Providers Care Artist Model Name Role Phone Oswaldo Serrano MD Primary Care Provider Angel Crowe DPM Unavailable [phone] Mora Fritz Unavailable Unavailable Ok Jorge MD Unavailable Orlin Urbina APRN, YUDI Unavailable [phone] Reason for Visit * Reason Comments Medication Refill Encounter Details Date Type Department Care Team (Late st Contact Info) Description 10/14/2021 Refill [facility] [address] [place] [address] Edwar Romo MD [address] [facility], [address] [address] Medication Refill Social History Tobacco Use Types [...] COVID-19? No / Unsure 10/07/2021 3:45 PM RN ONCOLOGY documented as of this encounter Miscellaneous Notes * Telephone Encounter - Edwar Romo MD - 10/20/2021 11:28 AM CST Needs follow up appt before refilling medication. ONCOLOGY * Telephone Encounter - Peggy Parson RN [...] [facility] 05/14/21 Office Visit Connor Yuan, MASTER PLANNER, YUDI [facility] 02/27/21 Office Visit Oswaldo Serrano MD [facility] 02/16/21 Office Visit Oswaldo Serrano MD [facility] 01/14/21 Office Visit Connor Yuan APRN, YUDI [facility] 12/19/20 Office Visit Oswaldo Serrano MD [facility] 12/18/20 Telemedicine Oswaldo Serrano MD [facility] 12/08/20 Telemedicine Oswaldo Serrano MD [facility] 11/07/20 Telemedicine Connor Yuan APRN, INSULATION BATTING MACHINE OPERATOR [facility] Showing recent visits within past 365 days and meeting all other requirements Future Appointments Date Type Provider Dept 01/05/22 Appointment Oswaldo Serrano MD [facility] Showing future appointments within next 90 days and meeting all other requirements ONCOLOGY documented in this encounter Plan of Treatment Upcoming Encounters Date Type Department Care Team (Late st Contact Info) Description 07/17/2025 2:45 PM CDT Office Visit [facility] Medical [facility] - Family Medicine - [place] #2 [place] [address] Oswaldo Serrano MD #2 [facility] [address] [place] [address] 07/22/2025 2:30 PM CDT Office Visit [facility] - Endocrinology - [place] #2 [facility] [phone] Ok Jorge MD #2 [facility] [address] [place] [address] 07/30/2025 2:45 PM CDT Office Visit [facility] #2 [place] [address] Orlin Urbina APRN, INSULATION BATTING MACHINE OPERATOR #2 [place] [address] documented as of this encounter Visit Diagnoses Diagnosis Nocturnal enuresis documented in this encounter Additional Health Concerns Assessment Noted Time PHQ-9 Depression Total Score: 2 07/18/20 20 4:26 PM CDT documented as of this encounter Care Teams Artist Model Relationship Specialty Start Date End Date Oswaldo Serrano MD #2 [facility] [address] [place] [address] PCP - General Family Medicine 05/19/17 Angel Crowe DPM #2 [facility] [address] [place] [address] Consulting Physician Podiatry 06/16/17 Mora Fritz [place] Behavioral Health Navigator 06/15/18 Ok Jorge MD #2 [facility] [address] [place] [address] Consulting Physician Endocrinology 05/12/22 Orlin Urbina APRN, INSULATION BATTING MACHINE OPERATOR #2 [place] [address] Nurse Practitioner Advanced Practice Nurse 11/09/22 documented as of this encounter
--- OUTSIDE RECORDS SUMMARY | 2025-06-08 01:05 | XMS_ITS | Encounter Summary ---
Author Organization [facility] Address [address] [place] [address] Phone Care Team Providers Care Carton Catcher Name Role Phone Oswaldo Serrano MD Primary Care Provider [phone] Angel Crowe DPCiara Unavailable [phone] Mora Fritz Unavailable Unavailable Ok Jorge MD Unavailable Orlin Urbina APRN, REFRACTORY MANAGER Unavailable [phone] Reason for Visit * Reason Comments Medication Refill Encounter Details Date Type Department Care Team (Late st Contact Info) Description 02/17/2022 Refill [facility] - Family Medicine - [place] [address] [place] [address] Oswaldo Serrano MD #[address] [address] Medication Refill Social History Tobacco Use Types [...] Description 07/17/2025 2:45 PM CDT Office Visit [facility] Medical [facility] - Family Medicine - [place] #2 [facility] [place] [address] Oswaldo Serrano MD #2 [facility] [address] [place] [address] 07/22/2025 2:30 PM CDT Office Visit [facility] - Endocrinology - [place] #2 [facility] [address] Ok Jorge MD #2 [facility] [address] [place] [address] 07/30/2025 2:45 PM CDT Office Visit [facility] #2 [facility] [address] Orlin Urbina, TRAVERTINE INSTALLER, REFRACTORY MANAGER #2 [place] [address] documented as of this encounter Visit Diagnoses Not on filedocumented in this encounter Additional Health Concerns Assessment Noted Time PHQ-9 Depression Total Score: 2 07/18/20 20 4:26 PM CDT documented as of this encounter Care Teams Carton Catcher Relationship Specialty Start Date End Date Oswaldo Serrano MD #2 [facility] [address] [place] [address] PCP - General Family Medicine 05/19/17 Angel Crowe DPM #[address] [place] [address] Consulting Physician Podiatry 06/16/17 Mora Fritz [place] Behavioral Health Navigator 06/15/18 Ok Jorge MD #[address] [address] Consulting Physician Endocrinology 05/12/22 Orlin Urbina, TRAVERTINE INSTALLER, REFRACTORY MANAGER #2 [place] [address] Nurse Practitioner Advanced Practice Nurse 11/09/22 documented as of this encounter
--- OUTSIDE RECORDS SUMMARY | 2025-06-08 01:05 | XMS_ITS | Encounter Summary ---
Author Organization [facility] Address [address] [place] [address] Phone Care Team Providers Care Product Sales Representative Name Role Phone Oswaldo Serrano MD Primary Care Provider [phone] Angel Crowe DPCiara Unavailable [phone] Mora Fritz Unavailable Unavailable Ok Jorge MD Unavailable Orlin Urbina APRN, DENTIST/OWNER Unavailable [phone] Reason for Visit * Reason Comments Medication Refill Encounter Details Date Type Department Care Team (Late st Contact Info) Description 12/16/2021 Refill [facility] - Family Medicine - [place] [address] [place] [address] Oswaldo Serrano MD #[address] [address] Medication Refill Social History Tobacco Use Types [...] COVID-19? No / Unsure 12/10/2021 3:06 PM PIPE COVERER AND INSULATOR documented as of this encounter Miscellaneous Notes [...] 90 days and meeting all other requirements COVERER AND INSULATOR documented in this encounter Plan of Treatment Upcoming Encounters Date Type Department Care Team (Late st Contact Info) Description 07/17/2025 2:45 PM CDT Office Visit [facility] - Family Medicine [facility] #2 [place] [address] Oswaldo Serrano MD #2 [facility] [address] [place] [address] 07/22/2025 2:30 PM CDT Office Visit [facility] Endocrinology - [place] #2 [facility] [place] [address] Ok Jorge MD #2 [facility] [address] [place] [address] 07/30/2025 2:45 PM CDT Office Visit [facility] #2 [facility] [place] [address] Orlin Urbina APRN, DENTIST/OWNER #2 [facility] [place] [address] documented as of this encounter Visit Diagnoses Not on filedocumented in this encounter Additional Health Concerns Assessment Noted Time PHQ-9 Depression Total Score: 2 07/18/20 20 4:26 PM CDT documented as of this encounter Care Teams Product Sales Representative Relationship Specialty Start Date End Date Oswaldo Serrano MD #2 [facility] [address] [place] [address] PCP - General Family Medicine 05/19/17 Angel Crowe DPM #[address] [address] Consulting Physician Podiatry 06/16/17 Mora Fritz [place] Behavioral Health Navigator 06/15/18 Ok Jorge MD #[address] [address] Consulting Physician Endocrinology 05/12/22 Orlin Urbina APRN, DENTIST/OWNER #2 [place] [address] Nurse Practitioner Advanced Practice Nurse 11/09/22 documented as of this encounter
--- OUTSIDE RECORDS SUMMARY | 2025-06-08 01:05 | XMS_ITS | Encounter Summary ---
Author Organization [facility] Address [address] [place] [address] Phone Care Team Providers Care Heavy Antiarmor Weapons Infantryman Name Role Phone Oswaldo Serrano MD Primary Care Provider [phone] Angel Crowe DPCiara Unavailable [phone] Mora Fritz Unavailable Unavailable Ok Jorge MD Unavailable Orlin Urbina APRN, CELERY CUTTER Unavailable [phone] Reason for Visit * Reason Comments Medication Refill Encounter Details Date Type Department Care Team (Late st Contact Info) Description 07/14/2022 Refill [facility] - Family Medicine - [place] [address] [place] [address] Oswaldo Serrano MD #[address] [address] Medication Refill Social History Tobacco Use Types [...] Description 07/17/2025 2:45 PM CDT Office Visit [facility] Medical [facility] - Family Medicine - [place] #2 [place] [address] Oswaldo Serrano MD #[address] [address] 07/22/2025 2:30 PM CDT Office Visit [facility] - Endocrinology - [place] #[address] [place] [address] Ok Jorge MD #[address] [address] 07/30/2025 2:45 PM CDT Office Visit [facility] #2 [place] [address] Orlin Urbina, PRODUCTION LINE MECHANIC, CELERY CUTTER #2 [place] [address] documented as of this encounter Visit Diagnoses Not on filedocumented in this encounter Additional Health Concerns Assessment Noted Time PHQ-9 Depression Total Score: 2 07/18/20 20 4:26 PM CDT documented as of this encounter Care Teams Heavy Antiarmor Weapons Infantryman Relationship Specialty Start Date End Date Oswaldo Serrano MD #[address] [address] PCP - General Family Medicine 05/19/17 Angel Crowe DPM #[address] [place] [address] Consulting Physician Podiatry 06/16/17 Mora Fritz [place] Behavioral Health Navigator 06/15/18 Ok Jorge MD [facility] [address] [address] Consulting Physician Endocrinology 05/12/22 Orlin Urbina APRN, YUDI #2 [place] [address] Nurse Practitioner Advanced Practice Nurse 11/09/22 documented as of this encounter
--- OUTSIDE RECORDS SUMMARY | 2025-06-08 01:05 | XMS_ITS | Encounter Summary ---
Author Organization [facility] Address [address] [place] [address] Phone Care Team Providers Care Lab Instructor Name Role Phone Oswaldo Serrano MD Primary Care Provider [phone] Angel Crowe DPM Unavailable [phone] Mora Fritz Unavailable Unavailable Ok Jorge MD Unavailable Orlin Urbina APRN, CONTRACTING OFFICER Unavailable [phone] Reason for Visit * Reason Comments Medication Refill Encounter Details Date Type Department Care Team (Late st Contact Info) Description 12/09/2021 Refill [facility] [place] [facility] #2 [place] [address] Orlin Urbina APRN, CONTRACTING OFFICER #2 [place] [address] Medication Refill Social History Tobacco Use Types [...] COVID-19? No / Unsure 12/10/2021 3:06 PM COTTON HEADER documented as of this encounter Miscellaneous Notes * Telephone Encounter - Orlin Urbina APRN, CNP - 12/11/2021 12:52 PM COTTON HEADER Patient needs follow-up for continued refills ON HEADER * Telephone Encounter - Peggy Parson RN [...] 10/27/21 Office Visit Orlin Urbina APRN, CNP [facility] 10/07/21 Office Visit [facility]aldo [facility] 07/28/21 Telemedicine [facility]21 Office Visit Connor Yuan APRN, CONTRACTING OFFICER [facility] 02/27/21 Office Visit Oswaldo Serrano MD [facility] 02/16/21 Office Visit Oswaldo Serrano MD [facility] 01/14/21 Office Visit Connor Yuan APRN, CONTRACTING OFFICER [facility] 12/19/20 Office Visit Oswaldo Serrano [...] Ref Range Status 07/02/2021 60 >=60 Final ON HEADER documented in this encounter Plan of Treatment Upcoming Encounters Date Type Department Care Team (Late st Contact Info) Description 07/17/2025 2:45 PM CDT Office Visit [facility] Medical [facility] - Family Medicine - [place] #2 [place] [address] Oswaldo Serrano MD #2 [facility] [address] [place] [address] 07/22/2025 2:30 PM CDT Office Visit [facility] - Endocrinology - [place] #2 [place] [address] Ok Jorge MD #2 [facility] [address] [place] [address] 07/30/2025 2:45 PM CDT Office Visit [facility] #2 [place] [address] Orlin Urbina APRN, CONTRACTING OFFICER #2 [place] [address] documented as of this encounter Visit Diagnoses Diagnosis Nocturnal enuresis OAB (overactive bladder) Hypertonicity of bladder documented in this encounter Additional Health Concerns Assessment Noted Time PHQ-9 Depression Total Score: 2 07/18/20 20 4:26 PM CDT documented as of this encounter Care Teams Lab Instructor Relationship Specialty Start Date End Date Oswaldo Serrano MD #2 [facility] [address] [place] [address] PCP - General Family Medicine 05/19/17 Angel Crowe DPM #2 [facility] [address] [place] [address] Consulting Physician Podiatry 06/16/17 Mora Fritz Behavioral Health Navigator 06/15/18 Ok Jorge MD #2 [facility] [address] [place] [address] Consulting Physician Endocrinology 05/12/22 Orlin Urbina APRN, CONTRACTING OFFICER #2 [place] [address] Nurse Practitioner Advanced Practice Nurse 11/09/22 documented as of this encounter
--- OUTSIDE RECORDS SUMMARY | 2025-06-08 01:05 | XMS_ITS | Encounter Summary ---
Author Organization [facility] Address [address] [place] [address] Phone Care Team Providers Care Healthcare Receptionist Name Role Phone Oswaldo Serrano MD Primary Care Provider [phone] Angel Crowe DPCiara Unavailable [phone] Mora Fritz Unavailable Unavailable Ok Jorge MD Unavailable Orlin Urbina APRN, RISK MANAGER Unavailable [phone] Reason for Visit * Reason Comments Medication Refill Encounter Details Date Type Department Care Team (Late st Contact Info) Description 10/29/2020 Refill [facility] - Family Medicine - [place] [address] [place] [address] Oswaldo Serrano MD #[address] [address] Medication Refill Social History Tobacco Use Types [...] COVID-19? No / Unsure 10/29/2020 2:20 PM AIRCRAFT TIME CLERK documented as of this encounter Miscellaneous [...] Outpatient Visits 2 weeks ago Flu-like symptoms [facility] - Oswaldo Moreno MD 1 month ago Chronic joint pain [facility] - Oswaldo Moreno MD 3 months ago Diabetic polyneuropathy associated with type 2 diabetes mellitus (HCC) [facility] - Connor Hutchinson APN, YUDI 3 months ago Acute diarrhea [facility] - Connor Hutchinson APN, YUDI 4 months ago Tick bite, initial encounter [facility] - Oswaldo Moreno MD Upcoming Appointments Future Appointments Today Carson Michel MD [facility], [facility] In 1 week Ok Jorge MD [facility] Medical [facility] - Endocrinology - [place], [facility] In 1 month Oswaldo Serrano MD [facility] Medical [facility] - Family Medicine [facility], [facility] STRAW HAT MACHINE OPERATOR - Recent and Past Visits Recent Visits Date Type Provider Dept 10/09/20 Office Visit Oswaldo Serrano MD [facility] 09/16/20 Telemedicine Oswaldo Serrano MD [facility] 07/18/20 Office Visit Connor Yuan APN, RISK MANAGER [facility] 07/11/20 Telemedicine Connor Yuan APN, RISK MANAGER [facility] 06/09/20 Office Visit Oswaldo Serrano MD [facility] 05/29/20 Telemedicine Oswaldo Serrano MD [facility] 04/07/20 Office Visit Connor Yuan APN, RISK MANAGER [facility] 03/18/20 Telemedicine Oswaldo Serrano MD [facility] 12/14/19 Office Visit Merry Elliott, [facility] 08/28/19 Office Visit Oswaldo Serrano MD [facility] Showing recent visits within past 460 days with a meds authorizing provider and meeting all other requirements Future Appointments Date Type Provider Dept 12/08/20 Appointment Oswaldo Serrano MD [facility] Showing future appointments within next 90 days with a meds authorizing provider and meeting all other requirements RAFT TIME CLERK documented in this encounter Plan of Treatment Upcoming Encounters Date Type Department Care Team (Late st Contact Info) Description 07/17/2025 2:45 PM CDT Office Visit [facility] - Family Medicine - [place] #2 [place] [address] Oswaldo Serrano MD [address] [address] 07/22/2025 2:30 PM CDT Office Visit [facility] - Endocrinology - [place] #2 [place] [address] Ok Jorge MD #2 [facility] [address] [place] [address] 07/30/2025 2:45 PM CDT Office Visit [facility] #2 [place] [address] Orlin Urbina APRN, RISK MANAGER #2 [place] [address] documented as of this encounter Visit Diagnoses Not on filedocumented in this encounter Additional Health Concerns Infection Onset Date Last Indicated Resolved Time COVID - 19 11/12/2020 11/12/2020 11/16/2020 9:49 AM AIRCRAFT TIME CLERK COVID - 19 07/28/2021 07/29/2021 08/17/2021 12:1 6 AM AIRCRAFT TIME CLERK Assessment Noted Time PHQ-9 Depression Total Score: 2 07/18/20 20 4:26 PM CDT documented as of this encounter Care Teams Healthcare Receptionist Relationship Specialty Start Date End Date Oswaldo Serrano MD #2 [facility] [address] [place] [address] PCP - General Family Medicine 05/19/17 Angel Crowe DPM #2 [facility] [address] [place] [address] Consulting Physician Podiatry 06/16/17 Mora Fritz Behavioral Health Navigator 06/15/18 Ok Jorge MD #[address] [phone] Consulting Physician Endocrinology 05/12/22 Orlin Urbina, IMPORT/EXPORT ANALYST, RISK MANAGER #2 [place] [address] Nurse Practitioner Advanced Practice Nurse 11/09/22 documented as of this encounter
--- OUTSIDE RECORDS SUMMARY | 2025-06-08 01:06 | XMS_ITS | Encounter Summary ---
Author Organization [facility] Address [address] [place] [address] Phone Care Team Providers Care Credit Verification Clerk Name Role Phone Oswaldo Serrano MD Primary Care Provider [phone] Angel Crowe DPCiara Unavailable [phone] Mora Fritz Unavailable Unavailable Ok Jorge MD Unavailable Orlin Urbina APRN, FURNACE REPAIR MECHANIC Unavailable [phone] Reason for Visit * Reason Comments Medication Refill Encounter Details Date Type Department Care Team (Late st Contact Info) Description 08/11/2022 Refill [facility] - Family Medicine - [place] #[address] [place] [address] Oswaldo Serrano MD #[address] [address] Medication Refill Social History Tobacco Use Types [...] Dept 05/25/22 Office Visit Tom Quach MD [facility]aj 01/05/22 Office Visit Oswaldo Serrano MD [facility] 10/07/21 Office Visit Oswaldo Serrano MD [facility] Showing recent visits within past 365 days and meeting all other requirements Future Appointments No visits were found meeting these conditions. Showing future appointments within next 90 days and meeting all other requirements documented in this encounter Plan of Treatment Upcoming Encounters Date Type Department Care Team (Late st Contact Info) Description 07/17/2025 2:45 PM CDT Office Visit [facility] Group - Family Medicine - [place] #[address] [place] [address] Oswadlo Serrano MD #[address] [address] 07/22/2025 2:30 PM CDT Office Visit [facility] - Endocrinology - [place] #2 [place] [address] Ok Jorge MD #[address] [address] 07/30/2025 2:45 PM CDT Office Visit [facility] #2 [place] [address] Orlin Urbina APRN, FURNACE REPAIR MECHANIC #2 [place] [address] documented as of this encounter Visit Diagnoses Not on filedocumented in this encounter Additional Health Concerns Assessment Noted Time PHQ-9 Depression Total Score: 2 07/18/20 20 4:26 PM CDT documented as of this encounter Care Teams Credit Verification Clerk Relationship Specialty Start Date End Date Oswaldo Serrano MD #[address] [address] PCP - General Family Medicine 05/19/17 Angel Crowe DPM #[address] [address] Consulting Physician Podiatry 06/16/17 Mora Fritz Behavioral Health Navigator 06/15/18 Ok Jorge MD #[address] [address] Consulting Physician Endocrinology 05/12/22 Orlin Urbina APRN, FURNACE REPAIR MECHANIC #2 [place] [address] Nurse Practitioner Advanced Practice Nurse 11/09/22 documented as of this encounter
--- OUTSIDE RECORDS SUMMARY | 2025-06-08 01:06 | XMS_ITS | Encounter Summary ---
Author Organization [facility] Healthcare Address [address] [place] [address] Care Team Providers Care Professor Of Biochemistry Name Role Phone Oswaldo Serrano MD Primary Care Provider [phone] Pastora Flores MD Unavailable Sandro Hong MD Unavailable Naa MillerW Unavailable [phone] Juanis Lo MD Unavailable Encounter Details Date Type Department Care Team (Late st Contact Info) Description 05/30/2024 Orders Only [facility] Health Information Management [address] [place] [address] Scanning, Provider Social History Tobacco Use Types Packs/Day Years Used Date Smoking Tobacco: Never Smokeless Tobacco: Never [facility] Utilities Answer Date Recorded In the past 12 months has [employer], gas, oil, or water [employer] threatened to shut off services in your [...] How often do you attend chur or buddhism services? Never 06/01/2024 Do you belong to [...] any time in the past 12 m [facility], were you homeless or living in a jail (including now)? No 06/01/2024 Personal Safety Answer Date Recorded Getting School Help Needed Not on file 12/24 Comments Unknown Sex and Gender Information Value Date Recorded Sex Assigned at Not on file Legal Sex Female 3:51 AM COMIC WRITER Gender Identity Not on file Sexual Orientation [...] Date Last Indicated Resolved Time Ring Surveillance [id number] NDM-1 07/20/2024 07/20/2024 08/03/2024 3:05 AM C DT COVID: Suspected 10/12/2024 10/12/2024 10/12/2024 5:12 PM COMIC WRITER Rhino/Enterovirus 10/12/2024 10/12/2024 10/24/2024 1:56 PM COMIC WRITER documented as of this encounter Care Teams Professor Of Biochemistry Relationship Specialty Start Date End Date Oswaldo Serrano MD [address] [address] PCP - General Family Medicine 04/14/18 [place] [address] [address] Consulting Physician Cardiology 06/08/24 Sandro Hong MD [address] [place] [address] Referring Physician Cardiology 06/21/24 Naa Miller, [facility] [address] [facility] Mailstop [phone] [place] [address] [facility] Outpatient Retail Financial Analyst 08/03/24 08/30/24 Juanis Lo MD [address] [facility] [address] [place] [address] Referring Physician Cardiology 03/29/25 documented as of this encounter
--- OUTSIDE RECORDS SUMMARY | 2025-06-08 01:06 | XMS_ITS | Encounter Summary ---
Author Organization [facility] Address [address] [place] [address] Phone Care Team Providers Care Scientist Propagator Name Role Phone Oswaldo Serrano MD Primary Care Provider [phone] Angel Crowe DPCiara Unavailable [phone] Mora Fritz Unavailable Unavailable Ok Jorge MD Unavailable Orlin Urbina APRN, GARBAGE STOKER Unavailable [phone] Reason for Visit * Reason Comments Medication Refill Encounter Details Date Type Department Care Team (Late st Contact Info) Description 06/03/2022 Refill [facility] - Family Medicine - [place] [address] [place] [address] Oswaldo Serrano MD #[address] [address] Medication Refill Social History Tobacco Use Types [...] Description 07/17/2025 2:45 PM CDT Office Visit [facility] - Family Medicine [facility] [address] [facility] [place] [address] Oswaldo Serrano MD #2 [facility] [address] [place] [address] 07/22/2025 2:30 PM CDT Office Visit [facility] - Endocrinology - Elizabeth [address] [place] [address] Ok Jorge MD #[address] [place] [address] 07/30/2025 2:45 PM CDT Office Visit [facility] [address] [place] [address] Orlin Urbina, CUSTOM LEATHER PRODUCTS MAKER, GARBAGE STOKER [address] [place] [address] documented as of this encounter Visit Diagnoses Not on filedocumented in this encounter Additional Health Concerns Assessment Noted Time PHQ-9 Depression Total Score: 2 07/18/20 20 4:26 PM CDT documented as of this encounter Care Teams Scientist Propagator Relationship Specialty Start Date End Date Oswaldo Serrano MD #[address] [address] PCP - General Family Medicine 05/19/17 Angel Crowe DPM #[address] [address] Consulting Physician Podiatry 06/16/17 Mora Fritz [place] Behavioral Health Navigator 06/15/18 Ok Jorge MD #[address] [address] Consulting Physician Endocrinology 05/12/22 Orlin Urbina APRN, YUDI [address] [place] [address] Nurse Practitioner Advanced Practice Nurse 11/09/22 documented as of this encounter
--- OUTSIDE RECORDS SUMMARY | 2025-06-08 01:06 | XMS_ITS | Encounter Summary ---
Author Organization [facility] Address [address] [facility] [place] [address] Care Team Providers Care Crane Crew Supervisor Name Role Phone Fredis Klein CROSSCUTTER-INTERNAL REVENUE SERVICE AGENT Primary Care Provider Encounter Details Date Type Department Care Team (Late st Contact Info) Description 05/23/2025 Results Follow-Up [facility] [address] [place] [id number] Radha Farrell, BROWN Social History Tobacco Use [...] and heating? Not hard at all 05/15/2025 [facility] Occupat ional [facility] - Occupational Stress [...] time in the past 12 m [facility], were you homeless or living in a [facility] (including now)? No 05/15/2025 Comments Unknown Sex [...] st Contact Info) Description 11/28/2025 1:30 PM TEST HOLE DRILLER Office Visit [facility] - GI [address] [facility] [place] [address] Tiffanie Brown MD [address] [facility] [address] [place] [address] [place] [id number] documented as of this encounter Visit Diagnoses Not on filedocumented in this encounter Additional Health Concerns Infection Onset Date Last Indicated Resolved Time COVID-19 Under Investigation 05/27/2025 05/27/2025 05/27/2025 3:18 PM CDT documented as of this encounter Care Teams Crane Crew Supervisor Relationship Specialty Start Date End Date Fredis Klein, JOHN-INTERNAL REVENUE SERVICE AGENT [address] [place] [id number] PCP - General 08/08/18 documented as of this encounter
--- OUTSIDE RECORDS SUMMARY | 2025-06-08 01:06 | XMS_ITS | Clinical Summary ---
Author Organization [facility] Address [address] [place] [address] Care Team Providers Care Service Department Manager Name Role Phone Fredis Klein APRN-ORE PUNCHER Primary Care Provider Source Comments [facility],non-owned Affiliates and Associated Physician Practices is amultiple site organization consisting of ambulatory clinics and hospital sitesin [place], [place], [place] and [place]. This disclosure is being madepursuant to the Care Everywhere program and may not contain all information available regarding this patient. Last updated 18.[facility] Allergies Active Allergy Reactions Criticality Noted Date [...] fluticasone propionate (Flonase) 50 MCG/ACT nasal spray [place] 2 (two) sprays into each nostril 2 [...] to ensure Na continues to improve. Family, keycase assembler, nurse, and rapid aware of current treatment [...] f/u. Pt was supposed to follow with [facility], advise to keep that appointment but will [...] f/u. Pt was supposed to follow with [facility], advise to keep that appointment but will [...] f/u. Pt was supposed to follow with [facility], advise to keep that appointment but will [...] f/u. Pt was supposed to follow with [facility], advise to keep that appointment but will [...] f/u. Pt was supposed to follow with [facility], advise to keep that appointment but will [...] (home dose with 80mg PO bid) - HVAC INSTALLATION TECHNICIAN malou and metop succ - cardiac diet with fluid restriction - bid electrolyte monitoring - telemetry monitoring - cardiology consulted, pt reported to have workup at [facility] for valve replacement but family reported it was denied due to insurance? Assessment & Plan (05/15/2025 11:22 PM CDT): - Last TTE 02/07/2025 with EF 25%, BNP today 2200 - currently deocompensated, will obtain repeat TTE - daily weighs, strict I & O - furosemide 80mg IV tid (home dose with 80mg PO bid) - HVAC INSTALLATION TECHNICIAN malou and metop succ - cardiac diet [...] f/u. Pt was supposed to follow with [facility], advise to keep that appointment but will [...] f/u. Pt was supposed to follow with [facility], advise to keep that appointment but will [...] f/u. Pt was supposed to follow with [facility], advise to keep that appointment but will [...] f/u. Pt was supposed to follow with [facility], advise to keep that appointment but will [...] f/u. Pt was supposed to follow with [facility], advise to keep that appointment but will [...] f/u. Pt was supposed to follow with [facility], advise to keep that appointment but will [...] f/u. Pt was supposed to follow with [facility], advise to keep that appointment but will [...] f/u. Pt was supposed to follow with [facility], advise to keep that appointment but will [...] f/u. Pt was supposed to follow with [facility], advise to keep that appointment but will [...] f/u. Pt was supposed to follow with [facility], advise to keep that appointment but will [...] f/u. Pt was supposed to follow with [facility], advise to keep that appointment but will [...] f/u. 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 inspector suppressive abx therapy with cefadroxil Agitation 05/15/2025 [...] & Plan (05/16/2025 7:26 AM CDT): - HVAC INSTALLATION TECHNICIAN levothyroxine Assessment & Plan (05/15/2025 10:56 PM CDT): - HVAC INSTALLATION TECHNICIAN levothyroxine Atrial fibrillation 05/15/2025 Assessment & Plan [...] & Plan (05/16/2025 1:20 PM CDT): - HVAC INSTALLATION TECHNICIAN rivaroxaban, 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 Assessment & Plan (05/15/2025 11:22 PM CDT): - HVAC INSTALLATION TECHNICIAN rivaroxaban, 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 Prolonged Q-T interval on [...] Team Description 06/07/2025 Telephone Transitional Care at [facility] [address] [place] [address] Radha Villegas, laborer brush clearing 05/23/2025 Results Follow-Up [facility] [address] [place] [address] Radha Farrell RN 05/20/2025 10:14 AM CDT - 05/20/2025 11:59 PM CDT Hospital Encounter [facility] - Cardiac Access Representative [address] [place] [address] Linda Lezama MD Discharge Disposition: Home or Self Care 05/15/2025 6:17 PM CDT - 06/06/2025 5:19 PM CDT Hospital Encounter [facility] [address] [place] [address] Juno Hernandez MD Eschbach, Heather, DO Gandhi, Avi, MD Mikhalkova, Deana, MD Mehanni, Mina M, MD Hassan, Abdalla H, MD Becker, Erica, MD Kamal, Syeda, MD Hoque, Farzana, MD Brotherton, Timothy, MD Hospitalist Discharge Disposition: [facility] Facility 05/15/2025 Travel from Last 3 Months [...] and heating? Not hard at all 05/15/2025 [facility] [place] [facility] Occupat ional [facility] - Occupational Stress [...] any time in the past 12 m [facility], were you homeless or living in a residential (including now)? No 05/15/2025 Comments Unknown Sex [...] st Contact Info) Description 11/28/2025 1:[address] MANAGER Office Visit [facility] [address] [facility] [place] [phone] Tiffanie Brown MD [address] [place] [phone] Health Maintenance Due Date Last Done Comments [...] resultswithin the time period is included. Pathologist [facility] Glucose WB/POC 273(H) 70 - 99 mg/dL 06/06/2025 11:22 AM CDT [facility] Specimen Type Arterial/C apillary 06/06/2025 11:22 AM T [facility] Blood BLOOD SPECIMEN / Unknown 06/06/2025 11:18 AM CDT 06/06/2025 11:22 AM CDT Jennifer Burton MD LAB - POINT OF CARE ORDERABLES Final Result [facility] [address] [place] [address], [facility] [phone] * (ABNORMAL) CBC W/O DIFFERENTIAL (06/06/2025 5:19 AM CDT) Only the most recent of18 resultswithin the time period is included. [facility] WBC 3.7(L) 4.0 - 10.7 x10E9/L 06/06/2025 6:40 AM [facility] RBC Count 3.90 3.90 - 5.20 x10E12/L 06/06/2025 6:40 AM [facility] Hemoglobin 13.6 11.9 - 15.8 g/dL 06/06/2025 6:40 AM [facility] Hematocrit 40.3 34.8 - 46.1 % 06/06/2025 6:40 AM [facility] MCV 103.3(H) 80.0 - 98.0 fL 06/06/2025 6:40 AM [facility] MCH 34.9(H) 26.7 - 33.6 pg 06/06/2025 6:40 AM [facility] MCHC 33.7 31.7 - 36.3 g/dL 06/06/2025 6:40 AM [facility] RDW-CV 16.0(H) 11.3 - 14.8 % 06/06/2025 6:40 AM [facility] Platelet Count 254 150 - 420 x10E9/L 06/06/2025 6:40 AM [facility] MPV 10.0 7.8 - 11.4 fL 06/06/2025 6:40 AM [facility] Blood BLOOD SPECIMEN / Unknown Lab Venipuncture / Unknown 06/06/2025 5:19 AM CDT 06/06/2025 6:30 AM CDT us Jefry Arizmendi MD LAB - HEMATOLOGY ORDERABLES Fi nal Result [facility] [address] [place] [address], [facility] [phone] * (ABNORMAL) COMPREHENSIVE METABOLIC PANEL (06/06/2025 5:19 AM CDT) Only the most recent of16 resultswithin the time period is included. BUN 19 7 - 26 mg/dL 06/06/2025 6:52 AM [facility] Creatinine 0.70 0.56 - 0.96 mg/dL 06/06/2025 6:52 AM [facility] Sodium 133(L) 136 - 145 mmol/L 06/06/2025 6:52 AM [facility] Potassium 4.5 3.5 - 4.5 mmol/L 06/06/2025 6:52 AM [facility] Chloride 104 98 - 107 mmol/L 06/06/2025 6:52 AM [facility] CO2 25 22 - 29 mmol/L 06/06/2025 6:52 AM [facility] Glucose 115(H) 70 - 99 mg/dL 06/06/2025 6:52 AM [facility] Calcium 8.6 8.4 - 10.2 mg/dL 06/06/2025 6:52 AM [facility] Protein Total 6.1 6.0 - 8.3 g/dL 06/06/2025 6:52 AM [facility] Albumin 2.3(L) 3.4 - 5.0 g/dL 06/06/2025 6:52 AM [facility] Bilirubin Total 2.8(H) 0.2 - 1.2 mg/dL 06/06/2025 6:52 AM [facility] Alkaline Phosphatase 298(H) 40 - 150 U/L 06/06/2025 6:52 AM [facility] ALT 24 5 - 55 U/L 06/06/2025 6:52 AM [facility] AST 41(H) 5 - 34 U/L 06/06/2025 6:52 AM [facility] Anion Gap 4(L) 6 - 16 06/06/2025 6:52 AM [facility] BUN/Creatinine Ratio 27(H) 7 - 23 06/06/2025 6:52 AM [facility] Osmolality Calculated 279 275 - 295 mOsm/kg 06/06/2025 6:52 AM [facility] Albumin/Globulin Ratio 0.6(L) 1.1 - 2.3 06/06/2025 6:52 AM [facility] eGFR by CKD-EPI >90 >=90 mL/min/1.7 3 m2 06/06/2025 6:52 AM [facility] Comment:Estimated Glomerular Filtration Rate (eGFR) calculated using the CKD-EPI Creatinine Equation (2020), per the National Kidney Foundation and [place] [employer] Neph[employer] recommendations. Blood BLOOD SPECIMEN / Unknown Lab Venipuncture / Unknown 06/06/2025 5:19 AM CDT 06/06/2025 6:29 AM CDT us Lyndon Fishman MD LAB - CHEMISTRY ORDERABLES F inal Result [facility] [address] [place] [address], [facility] [phone] * PHOSPHORUS BLOOD (06/06/2025 5:19 AM CDT) Only the most recent of11 resultswithin the time period is included. Phosphorus 3.5 2.9 - 5.1 mg/dL 06/06/2025 6:52 AM CDT [facility] Blood BLOOD SPECIMEN / Unknown Lab Venipuncture / Unknown 06/06/2025 5:19 AM CDT 06/06/2025 6:29 AM CDT us Lyndon Fishman MD LAB - CHEMISTRY ORDERABLES F inal Result [address] [address], [facility] [phone] * MAGNESIUM BLOOD (06/06/2025 5:19 AM CDT) Only the most recent of42 resultswithin the time period is included. Magnesium 1.9 1.6 - 2.6 mg/dL 06/06/2025 6:52 AM CDT [facility] Blood BLOOD SPECIMEN / Unknown Lab Venipuncture / Unknown 06/06/2025 5:19 AM CDT 06/06/2025 6:29 AM CDT us Jefry Arizmendi MD LAB - CHEMISTRY ORDERABLES Fin al Result Performing Organization Address City/[facility]/ZIP Co de Phone Number [address] [address], [facility] [phone] * FOLATE (05/30/2025 7:00 PM CDT) Folate 17.7 7.0 - 31.4 ng/mL 05/30/2025 9:47 PM CDT [facility] Blood BLOOD SPECIMEN / Unknown Lab Venipuncture / Unknown 05/30/2025 7:00 PM CDT 05/30/2025 8:44 PM CDT Mariah Yadav MD LAB - CHEMISTRY ORDERABLES Final Result Performing Organization Address City/[facility]/ZIP Co de Phone Number [address] [address], [facility] [phone] * (ABNORMAL) VITAMIN B12 (05/30/2025 3:05 AM CDT) Pathologist [facility] Vitamin B12 1,455(H) 213 - 816 pg/mL 05/30/2025 9:57 AM CDT [facility] Blood BLOOD SPECIMEN / Unknown Lab Venipuncture / Unknown 05/30/2025 3:05 AM CDT 05/30/2025 4:14 AM CDT Mariah Yadav MD LAB - CHEMISTRY ORDERABLES Final Result [facility] [address] [place] [address], [facility] [phone] * ECHO COMPLETE W CONTRAST (05/28/2025 9:26 AM CDT) Only the most recent of2 resultswithin the time period is included. [facility] AV area index 1.008 cm /m SSM [...] regurg 372.598 cm/s SSM CV FUJI PACS PA VTI 63.389 cm SSM CV FUJ I [...] 8:36 AM Patient Status: I/P Study Site: [facility] Primary Location: [facility] EStud Info Technical Quality: Adequate Exam [...] Attending Physician: Jefry Arizmendi Fellow: Buster Lima Wood Model Builder: Stuart Caldwell Left Ventricle The left ventricle [...] Eq Chadd) 3.01 cm2/m2 PV Regurgitation Doppler PA End Diastolic Gradient 10 mmHg Mitral Valve [...] Artery Doppler PA End Diastolic Pressure for PA 25 mmHg Aorta Name Value Normal Ascending [...] 8:36 AM Patient Status: I/P Study Site: [facility] Primary Location: [facility] Info Technical Quality: Adequate Exam Type: ECHO [...] Attending Physician: Jefry Arizmendi Fellow: Buster Lima Wood Model Builder: Stuart Caldwell Left Ventricle The left ventricle [...] Eq Chadd) 3.01 cm2/m2 PV Regurgitation Doppler PA End Diastolic Gradient 10 mmHg Mitral Valve [...] Artery Doppler PA End Diastolic Pressure for PA 25 mmHg Aorta Name Value Normal Ascending [...] 7 - 26 mg/dL 05/28/2025 7:18 AM [facility] Creatinine 0.83 0.56 - 0.96 mg/dL 05/28/2025 7:18 AM [facility] Sodium 142 136 - 145 mmol/L 05/28/2025 7:18 AM [facility] Potassium 4.1 3.5 - 4.5 mmol/L 05/28/2025 7:18 AM [facility] Chloride 102 98 - 107 mmol/L 05/28/2025 7:18 AM [facility] CO2 34(H) 22 - 29 mmol/L 05/28/2025 7:18 AM [facility] Glucose 165(H) 70 - 99 mg/dL 05/28/2025 7:18 AM [facility] Albumin 2.2(L) 3.4 - 5.0 g/dL 05/28/2025 7:18 AM [facility] Calcium 9.8 8.4 - 10.2 mg/dL 05/28/2025 7:18 AM [facility] Phosphorus 4.6 2.9 - 5.1 mg/dL 05/28/2025 7:18 AM [facility] Anion Gap 6 6 - 16 05/28/2025 7:18 AM [facility] BUN/Creatinine Ratio 42(H) 7 - 23 05/28/2025 7:18 AM [facility] Osmolality Calculated 306(H) 275 - 295 mOsm/kg 05/28/2025 7:18 AM [facility] eGFR by CKD-EPI 79(L) >=90 mL/min/1.7 3 m2 05/28/2025 7:18 AM [facility] Comment:Estimated Glomerular Filtration Rate (eGFR) calculated using the CKD-EPI Creatinine Equation (2020), per the National Kidney Foundation and [place] [employer] Nephrology recommendations. Blood BLOOD SPECIMEN / Unknown Lab Venipuncture / Unknown 05/28/2025 6:34 AM CDT 05/28/2025 6:46 AM CDT us Lyndon Fishman MD LAB - CHEMISTRY ORDERABLES F inal Result Performing Organization Address City/State/[facility] Co de Phone Number [facility] [address] [place] [address], [facility] [phone] * SARS-COV-2 (COVID-19) RAPID (05/27/2025 2:39 PM CDT) COVID-19 PCR Not detected Not detected 05/27/20 3:18 PM CDT [facility] Microbiology SPECIMEN FROM NASOPHARYNGEAL STRUCTURE / Unknown Collection / Unknown 05/27/2025 2:39 PM CDT 05/27/2025 2:44 PM CDT Narrative [facility] - 05/27/2025 3:18 PM CDT The Cepheid [...] LAB - MICROBIOLOGY ORDERABLE S Final Result [facility] [address] [place] [address], [facility] [phone] * XR Abdomen Kub Portable (05/25/2025 9:00 PM CDT) Only the most recent of4 resultswithin the time period is included. Anatomical Region Laterality Modality Abdomen Digital Radiogra phy 05/25/2025 9:09 PM CDT Narrative 05/26/2025 2:33 AM CDT PROCEDURE: XR ABDOMEN KUB PORTABLE, DATE/TIME OF EXAM: 05/25/2025 9:00 PM, LOCATION [facility] INDICATION: R57.8: Other shock (HCC) ADDITIONAL CLINICAL INFORMATION: Ordering Provider Reason For Exam: NG placement COMPARISON: CT abdomen pelvis dated 05/15/2025 and abdominal radiograph dated 05/23/2025. FINDINGS/IMPRESSION: Enteric tube courses below the diaphragm with the distal tip superimposing the distal fundus region. Report dictated by Sven Flores MD, (Integrated VIR resident). > Dictated by Record Searcher I, Jimbo Elmore MD have personally reviewed and interpreted this examination/study. > Interpreting Provider: Jimbo Elmore MD on 05/26/2025 2:33 AM Procedure Note Jimbo Elmore MD - 05/26/2025 PROCEDURE: XR ABDOMEN KUB PORTABLE, DATE/TIME OF EXAM: 05/25/2025 9:00PM, LOCATION [facility] INDICATION: R57.8: Other shock (HCC) ADDITIONAL CLINICAL INFORMATION: Ordering Provider Reason For Exam: NG placement COMPARISON: CT abdomen pelvis dated 05/15/2025 and abdominal radiographdated 05/23/2025. FINDINGS/IMPRESSION: Enteric tube courses below the diaphragm with the distal tipsuperimposing the distal fundus region. Report dictated by Sven Flores MD, (Integrated VIR resident). > Dictated by Record Searcher I, Jimbo Elmore MD have personally reviewed [...] in the presence of Shania Patel MD, (vice president biostatistics). > Interpreting Provider: Ann-Marie Campa MD on [...] MD, in the presence of Shania Patel MD,(vice president biostatistics). > Interpreting Provider: Ann-Marie Campa MD on 05/23/2025 9:32 AM Jefry Arizmendi MD DIAGNOSTIC IMAGING ORDERABLES Final Result * (ABNORMAL) BLOOD GASES ART + COOX PANEL (05/22/2025 5:54 AM T) Only the most recent of20 resultswithin the time period is included. pH Arterial 7.45 7.35 - 7.45 pH 05/22/2025 6:02 AM [facility] pO2 Arterial 85 80 - 100 mmHg 05/22/2025 6:02 AM [facility] pCO2 Arterial 46(H) 35 - 45 mmHg 6:02 AM [facility] HCO3 Arterial 32.0(H) 20.0 - 30.0 mmol/L 05/22/2025 6:02 AM [facility] BE Arterial 6.9(H) -2.0 - 2.0 mmol/L 05/22/2025 6:02 AM [facility] Oxyhemoglobin Arterial 94.8 % 05/22/2025 6:02 AM [facility] Dexoyhemoglobin (HHB) % 2.2 % 05/22/2025 6:02 AM [facility] Methemoglobin <0.8 0.0 - 2.0 % 05/22/2025 6:02 AM [facility] Carboxyhemoglobin 2.3(H) 0.0 - 2.0 % 2024 6:02 AM [facility] O2 Content Arterial 19.0 Interpret within clinical context ml/dL 05/22/2025 6:02 AM [facility] Hemoglobin by COOX 14.2 12.0 - 15.6 g/dL 05/22/2025 6:02 AM [facility] O2 Saturation Arterial 98 90 - 100 % 05/22/2025 6:02 AM [facility] FI O2 Arterial 40.0 % 05/22/2025 6:02 AM [facility] Blood, arterial ARTERIAL BLOOD SPECIMEN / Unknown Arterial Puncture / Unknown 05/22/2025 5:54 AM T 05/22/2025 5:58 AM [facility] - 05/22/2025 6:02 AM [facility] Carboxyhemoglobin Normal Concentration: Non-smokers: 0-2%; Smokers: 0-9%; Toxic: >20% us Gonzalo Reeves ANIMAL SHELTER SUPERVISOR-ORE PUNCHER LAB - BLOOD GASES ORDERABL ES Final Result [facility] [address] [place] [address], [facility] [phone] * (ABNORMAL) BLOOD GASES GATO + COOX PANEL (05/21/2025 7:05 PM [facility]) Only the most recent of9 resultswithin the time period is included. pH Venous 7.52(H) 7.32 - 7.42 pH 05/21/2025 7:19 PM [facility] pO2 Venous 83(H) 35 - 40 mmHg 05/21/2025 7:19 PM [facility] pCO2 Venous 34(L) 40 - 50 mmHg 05/21/2025 7:19 PM [facility] HCO3 Venous 27.8 20 - 30 mmol/L 05/21/2025 7:19 PM [facility] Base Excess Venous 5.1(H) -2.0 - 2.0 mmol/L 05/21/2025 7:19 PM [facility] Oxyhemoglobin Venous 95.4 % 05/10 7:19 PM [facility] Deoxyhemoglobin (HHB) Venous % 1.1 % 05/21/2025 7:19 PM [facility] Methemoglobin <0.8 0.0 - 2.0 % 05/21/2025 7:19 PM [facility] Carboxyhemoglobin 3.1(H) 0.0 - 2.0 % 2024 7:19 PM [facility] O2 Content Venous 17.9 Interpret within clinical context ml/dL 05/21/2025 7:19 PM [facility] Hemoglobin by COOX 13.3 12.0 - 15.6 g/dL 05/21/2025 7:19 PM [facility] O2 Saturation Venous 99 >=70 % 05/10 7:19 PM [facility] FI O2 Mixed Venous 30.0 % 2024 7:19 PM [facility] Blood BLOOD SPECIMEN / Unknown Venipuncture / Unknown 05/21/2025 7:05 PM CDT 05/21/2025 7:09 PM [facility] Narrative [facility] - 05/21/2025 7:19 PM [facility] Carboxyhemoglobin Normal Concentration: Non-smokers: 0-2%; Smokers: 0-9%; Toxic: >20% us Jefry Arizmendi MD LAB - BLOOD GASES ORDERABLES F inal Result [facility] [address] [place] [address], [facility] [phone] * LACTIC ACID BLOOD (05/21/2025 7:05 PM T) Only the most recent of27 resultswithin the time period is included. Pathologist [facility] Lactic Acid-Stat 1.5 <=2.0 mmol/L 05/21/2025 8:01 PM [facility] Blood BLOOD SPECIMEN / Unknown Venipuncture / Unknown 05/21/2025 7:05 PM CDT 05/21/2025 7:09 PM CDT us Jefry Arizmendi MD LAB - CHEMISTRY ORDERABLES Fin al Result [facility] [address] [place] [address], [facility] [phone] * (ABNORMAL) CBC W AUTO DIFFERENTIAL (05/21/2025 3:29 AM CDT) Only the most recent of7 resultswithin the time period is included. [facility] WBC 9.1 4.0 - 10.7 x10E9/L 05/21/2025 3:51 AM [facility] RBC Count 4.21 3.90 - 5.20 x10E12/L 05/21/2025 3:51 AM [facility] Hemoglobin 13.8 11.9 - 15.8 g/dL 05/21/2025 3:51 AM [facility] Hematocrit 40.2 34.8 - 46.1 % 05/21/2025 3:51 AM [facility] MCV 95.5 80.0 - 98.0 fL 05/21/2025 3:51 AM [facility] MCH 32.8 26.7 - 33.6 pg 05/21/2025 3:51 AM [facility] MCHC 34.3 31.7 - 36.3 g/dL 05/21/2025 3:51 AM [facility] RDW-CV 17.9(H) 11.3 - 14.8 % 05/21/2025 3:51 AM [facility] Platelet Count 149(L) 150 - 420 x10E9/L 05/21/2025 3:51 AM [facility] MPV 9.3 7.8 - 11.4 fL 05/21/2025 3:51 AM [facility] Neutrophil % 79.1(H) 41.0 - 74.0 % 05/21/2025 3:51 AM [facility] Lymphocyte % 5.0(L) 17.0 - 47.0 % 05/21/2025 3:51 AM [facility] Monocyte % 13.5(H) 3.0 - 11.0 % 05/21/2025 3:51 AM [facility] Eosinophil % 1.0 0.0 - 7.0 % 05/21/2025 3:51 AM [facility] Basophil % 0.8 0.0 - 1.6 % 05/21/2025 3:51 AM [facility] Immature Granulocytes % 0.6 0.0 - 1.0 % 05/21/2025 3:51 AM [facility] Neutrophil Absolute 7.19 1.60 - 7.50 x10E9/L 05/21/2025 3:51 AM [facility] Lymphocyte Absolute 0.45(L) 1.00 - 4.40 x10E9/L 05/21/2025 3:51 AM [facility] Monocyte Absolute 1.22(H) 0.15 - 1.00 x10E9/L 05/21/2025 3:51 AM [facility] Eosinophil Absolute 0.09 0.00 - 0.60 x10E9/L 05/21/2025 3:51 AM [facility] Basophil Absolute 0.07 0.00 - 0.13 x10E9/L 05/21/2025 3:51 AM [facility] Blood BLOOD SPECIMEN / Unknown Venipuncture / Unknown 05/21/2025 3:29 AM CDT 05/21/2025 3:40 AM CDT us Carline Darby DO LAB - HEMATOLOGY ORDERABLES Ayanna l Result [facility] [address] [place] [address], [facility] [phone] * CT Head Wo Contrast (05/20/2025 6:18 [...] 2:28 PM Patient Status: I/P Study Site: [facility] Primary Location: [facility] EStudy Info Technical Quality: Good Exam Type: [...] Attending Physician: Linda Lezama Fellow: Bridgett Silverio Wood Model Builder: Jamila Robison Performing Physician: Linda Lezama Wood Model Builder: Bridgett Silverio Complications * There were no [...] fibrillation. On average, the function is moderately -35% by visual estimate. * Spontaneous echo contrast [...] 2:28 PM Patient Status: I/P Study Site: [facility] Primary Location: [facility] EStudy Info Technical Quality: Good Exam Type: [...] Attending Physician: Linda Lezama Fellow: Bridgett Silverio Wood Model Builder: Jamila Robison Performing Physician: Linda Lezama Wood Model Builder: Bridgett Silverio Complications * There were no [...] fibrillation. On average, the function is moderately [id number]% by visual estimate. Right Ventricle The right [...] period is included. Ventricular Rate 125 BPM [facility] QRS Duration ms 116 ms [facility] Q-T Interval ms 338 ms [facility] QTC Calculation (Bezet) 487 ms [facility] Calculated R [place] 100 degrees [facility] Calculated T [place] -84 degrees [facility] Interpretation EKG ATRIAL FIBRILLATION WITH RAPID VENTRICULAR RESPONSE LOW VOLTAGE QRS ANTEROLATERAL INFARCT , AGE UNDETERMINED ABNORMAL ECG WHEN COMPARED WITH ECG OF 20-MAY-2025 09:25 NO SIGNIFICANT CHANGE WAS FOUND Confirmed by DAREK PARADA MD ([id number]) on 05/21/2025 8:38:24 AM [facility] [place] 05/20/2025 9:26 AM CDT 05/21/2025 8:38 AM CDT Linda Lezama MD ECG ORDERABLES Edited Resul t - Final Performing Organization Address City/[facility]/ZIP Co de Phone Number [facility] * OSMOLALITY URINE (05/20/2025 3:42 AM CDT) Only the most recent of4 resultswithin the time period is included. Pathologist [facility] Osmolality Urine 444 50 - 1,200 mOsm/kg 05/20/2025 4:07 AM CDT [facility] Urine URINE SPECIMEN OBTAINED BY CLEAN CATCH PROCEDURE / Unknown Collection / Unknown 05/20/2025 3:42 AM CDT 05/20/2025 3:46 AM CDT Linda Lezama MD LAB - URINE CHEMISTRY ORDERA BLES Final Result [facility] [address] [place] [address], [place] [phone] * OSMOLALITY BLOOD (05/20/2025 3:06 AM CDT) Only the most recent of4 resultswithin the time period is included. Osmolality 295 275 - 295 mOsm/kg 05/20/2025 4:07 AM CDT [facility] Blood BLOOD SPECIMEN / Unknown Venipuncture / Unknown 05/20/2025 3:06 AM CDT 05/20/2025 3:26 AM CDT Linda Lezama MD LAB - CHEMISTRY ORDERABLES F inal Result Performing Organization Address [facility]/ZIP Co de Phone Number [address] [address], [place] [phone] * CULTURE SPUTUM+GRAM STAIN (05/19/2025 4:20 PM [...] ORDERABLES Fi nal Result Performing Organization Address City/[facility]/ZIP Co de Phone Number [facility] MICRO[facility] [address] [place] [address], [place] [phone] * DIGOXIN LEVEL (05/19/2025 10:21 AM CDT) [facility] Digoxin 0.8 0.5 - 1.2 ng/mL 05/19/2025 2:57 PM CDT [facility] Blood BLOOD SPECIMEN / Unknown Venipuncture / Unknown 05/19/2025 10:21 AM CDT 05/19/2025 10:25 AM CDT Narrative [facility] - 05/19/2025 2:57 PM CDT Therapeutic reference range for heart failure is 0.5-0.9 ng/mL. For atrial fibrillation, it is 0.8-1.2 ng/mL. The field counsel of Digoxin Immune [employer]ver has stated that no immunoassay technique is suitable for quantitating digoxin in plasma/serum from patients on antibody fragment therapy. Linda Lezama MD LAB - CHEMISTRY ORDERABLES F inal Result Performing Organization Address City/[facility]/ZIP Co de Phone Number [address] [address], [place] [phone] * TRIGLYCERIDES BLOOD (05/19/2025 4:00 AM CDT) [facility] Triglycerides 131 <150 mg/dL 05/19/2025 4:35 AM CDT [facility] Comment: ATP III Classification of Triglycerides: <150 mg/dL: Normal 150 - 199 mg/dL: Borderline High 200 - 400 mg/dL: High >500 mg/dL: Very High Blood BLOOD SPECIMEN / Unknown Venipuncture / Unknown 05/19/2025 4:00 AM CDT 05/19/2025 4:07 AM CDT Linda Lezama MD LAB - CHEMISTRY ORDERABLES F inal Result Performing Organization Address City/[facility]/ZIP Co de Phone Number [address] [address], [place] [phone] * (ABNORMAL) SVO2 FOR RECALIBRATION (05/18/2025 3:05 AM CDT) Only the most recent of3 resultswithin the time period is included. SVO2 for Recalibration 81.6(H) 66.0 - 77.0 % 05/18/2025 3:29 AM CDT [facility] Blood BLOOD SPECIMEN / Unknown Venipuncture / Unknown 05/18/2025 3:05 AM CDT 05/18/2025 3:25 AM CDT Linda Lezama MD LAB - CHEMISTRY ORDERABLES F inal Result Performing Organization Address City/[facility]/ZIP Co de Phone Number [address] [address], [place] [phone] * (ABNORMAL) BILIRUBIN DIRECT (05/18/2025 3:05 AM CDT) Bilirubin Conjugated 4.4(H) 0.1 - 0.5 mg/dL 05/18/2025 4:04 AM CDT [facility] Blood BLOOD SPECIMEN / Unknown Venipuncture / Unknown 05/18/2025 3:05 AM CDT 05/18/2025 3:31 AM CDT Linda Lezama MD LAB - CHEMISTRY ORDERABLES F inal Result Performing Organization Address [facility] Co de Phone Number [address] [address], [place] [phone] * MRSA PCR (05/17/2025 2:40 PM CDT) MRSA DNA by PCR Not detected Not detected 05/17/2025 9:06 PM CDT [facility] MICROBIOLOG[facility] Microbiology SPECIMEN FROM NASAL FOSSAE / Unknown Collection / Unknown 05/17/2025 2:40 PM CDT 05/17/2025 2:48 PM CDT Narrative [facility] - 05/17/2025 9:06 PM CDT Methicillin-resistant Staphylococcus aureus (MRSA) DNA is not detected (presumed not colonized with MRSA). Linda Lezama MD LAB - MICROBIOLOGY ORDERABLE S Final Result [facility] MICRO[facility] [address] [place] [address], [facility] [phone] * CULTURE BLOOD (05/17/2025 2:40 PM CDT) Only the most recent of2 resultswithin the time period is included. Culture No growth day 5 DEZ 05/22/2025 7:31 PM CDT [facility]CRO[facility] Blood PERIPHERAL BLOOD / Unknown Venipuncture / Unknown 05/17/2025 2:40 PM CDT 05/17/2025 2:48 PM CDT us Linda Lezama MD LAB - MICROBIOLOGY ORDERABLE S Final Result [facility] MICRO[facility] [address] [place] [address], [facility] [phone] * URINALYSIS REFLEX MICROSCOPIC REFLEX CULTURE (05/17/2025 2:39 PM CDT) Color UA Yellow Yellow, Straw 05/17/2025 3:12 PM CDT [facility] Clarity UA Clear Clear 05/17/2025 3:12 PM CDT [facility] Glucose UA Normal Normal 05/17/2025 3:12 PM CDT [facility] Bilirubin UA Negative Negative 05/17/2025 3:12 PM CDT [facility] Ketone UA Negative Negative 05/17/2025 3:12 PM CDT [facility] Specific Marathon UA 1.006 1.005 - 1.030 05/17/2025 3:12 PM CDT [facility] Blood UA Negative Negative 05/17/2025 3:12 PM CDT [facility] pH UA 7.0 5.0 - 8.0 05/17/2025 3:12 PM CDT [facility] Protein UA Negative Negative 05/17/2025 3:12 PM CDT [facility] Urobilinogen UA Normal Normal mg/dL 05/17/2025 3:12 PM CDT [facility] Nitrite UA Negative Negative 05/17/2025 3:12 PM CDT [facility] Leukocyte Esterase UA Negative Negative 05/17/2025 3:12 PM CDT [facility] Reflex Status Culture not indicated 05/17/2025 3:12 PM CDT [facility] Urine Microscopy Urine microscopy not indicated 05/17/2025 3:12 PM CDT [facility] Urine URINE SPECIMEN OBTAINED BY SINGLE CATHETERIZATION OF URINARY BLADDER / Unknown Collection / Unknown 05/17/2025 2:39 PM CDT 05/17/2025 2:47 PM CDT us Linda Lezama MD LAB - URINALYSIS ORDERABLES Final Result [facility] [address] [place] [address], [facility] [phone] * US Abdomen Ltd W Comp Doppler [...] post cholecystectomy. > Dictated by Grace Lawrence (vice president biostatistics). > Dictated by Grace Lawrence 05/17/2025 2:55 PM > Dictated by Record Searcher IKenney have personally reviewed and interpreted this [...] post cholecystectomy. > Dictated by Grace Lawrence (vice president biostatistics). > Dictated by Grace Lawrence 05/17/2025 2:55 PM > Dictated by Record Searcher IKenney have personally reviewed and interpreted this [...] - 145 mmol/L 05/17/2025 4:05 AM CDT [facility] Blood BLOOD SPECIMEN / Unknown Venipuncture / Unknown 05/17/2025 3:11 AM CDT 05/17/2025 3:21 AM CDT us Linda Lezama MD LAB - CHEMISTRY ORDERABLES F inal Result [facility] [address] [place] [address] [phone] * (ABNORMAL) BASIC METABOLIC PANEL (CALCIUM TOTAL) (05/16/2025 10:47 AM CDT) BUN 29(H) 7 - 26 mg/dL 05/16/2025 11:45 AM [facility] Creatinine 1.39(H) 0.56 - 0.96 mg/dL 05/16/2025 11:45 AM [facility] Sodium 123(LL) 136 - 145 mmol/L 05/16/2025 11:45 AM [facility] Potassium 5.3(H) 3.5 - 4.5 mmol/L 05/16/2025 11:45 AM [facility] Chloride 87(L) 98 - 107 mmol/L 05/16/2025 11:45 AM [facility] CO2 25 22 - 29 mmol/L 05/16/2025 11:45 AM [facility] Glucose 113(H) 70 - 99 mg/dL 05/16/2025 11:45 AM [facility] Calcium 9.7 8.4 - 10.2 mg/dL 05/16/2025 11:45 AM [facility] Anion Gap 11 6 - 16 05/16/2025 11:45 AM [facility] BUN/Creatinine Ratio 21 7 - 23 05/16/2025 11:45 AM [facility] Osmolality Calculated 263(L) 275 - 295 mOsm/kg 05/16/2025 11:45 AM [facility] eGFR by CKD-EPI 43(L) >=90 mL/min/1.7 3 m2 05/16/2025 11:45 AM [facility] Comment:Estimated Glomerular Filtration Rate (eGFR) calculated using the CKD-EPI Creatinine Equation (2020), per the National Kidney Foundation and [place] [employer]ph[employer] recommendations. Blood BLOOD SPECIMEN / Unknown Lab Venipuncture / Unknown 05/16/2025 10:47 AM CDT 05/16/2025 11:03 AM T us Adryan Shabazz MD LAB - CHEMISTRY ORDERABLES Final Result [address] [address], [facility] [phone] * (ABNORMAL) POTASSIUM BLOOD (05/16/2025 10:47 AM CDT) Only the most recent of3 resultswithin the time period is included. Potassium 5.3(H) 3.5 - 4.5 mmol/L 05/16/2025 11:44 AM CDT [facility] Blood BLOOD SPECIMEN / Unknown Lab Venipuncture / Unknown 05/16/2025 10:47 AM CDT 05/16/2025 11:03 AM CDT Dionne Benitez MD LAB - CHEMISTRY ORDERAB LES Final Result [address] [address], [facility] [phone] * (ABNORMAL) HEMOGLOBIN A1C (05/16/2025 6:32 AM CDT) Hemoglobin A1c 7.2(H) <=5.6 % 05/16/2025 8:36 AM CDT [facility] Estimated Average Glucose 160 mg/dL 05/16/2025 8:36 AM CDT [facility] Comment: HbA1c Interpretation: Normal : < 5.7% Pre-diabetes: 5.7-6.4% Diabetes: Equal to or greater than 6.5% Test results diagnostic of diabetes should be repeated for confirmation. Treatment target values recommended by ADA and other clinical organizations should be used to evaluate metabolic control in patients. Reference: [place] [employer] Association, Standards of Care in Diabetes [...] DO LAB - CHEMISTRY ORDERABLES Final Result [address] [address], [facility] [phone] * URINALYSIS REFLEX TO MICROSCOPIC NO CULTURE (05/16/2025 12:17 AM CDT) Color UA Yellow Yellow, Straw 05/16/2025 12:33 AM [facility] Clarity UA Clear Clear 05/16/2025 12:33 AM [facility] Glucose UA Normal Normal 05/16/2025 12:33 AM [facility] Bilirubin UA Negative Negative 05/16/2025 12:33 AM [facility] Ketone UA Negative Negative 05/16/2025 12:33 AM [facility] Specific Marathon UA 1.018 1.005 - 1.030 05/16/2025 12:33 AM [facility] Blood UA Negative Negative 05/16/2025 12:33 AM [facility] pH UA 5.0 5.0 - 8.0 05/16/2025 12:33 AM [facility] Protein UA Negative Negative 05/16/2025 12:33 AM [facility] Urobilinogen UA Normal Normal mg/dL 05/16/2025 12:33 AM [facility] Nitrite UA Negative Negative 05/16/2025 12:33 AM [facility] Leukocyte Esterase UA Negative Negative 05/16/2025 12:33 AM [facility] Urine Microscopy Urine microscopy not indicated 05/16/2025 12:33 AM [facility] Urine URINE SPECIMEN OBTAINED BY CLEAN CATCH PROCEDURE / Unknown Collection / Unknown 05/16/2025 12:17 AM CDT 05/16/2025 12:23 AM CDT us Carline Darby DO LAB - URINALYSIS ORDERABLES Ayanna l Result [address] [address], [facility] [phone] * SODIUM URINE RANDOM (05/16/2025 12:17 AM CDT) Sodium Urine 77 Not Established mmol/L 05/16/2025 12:46 AM CDT [facility] Urine URINE SPECIMEN OBTAINED BY CLEAN CATCH PROCEDURE / Unknown Collection / Unknown 05/16/2025 12:17 AM CDT 05/16/2025 12:23 AM CDT Carline Darby DO LAB - URINE CHEMISTRY ORDERABLES Final Result [address] [address], [place] [phone] * UREA NITROGEN URINE RANDOM (05/16/2025 12:17 AM CDT) Urea Nitrogen Random Urine 193 Not Established mg/dL 05/16/2025 12:46 AM CDT [facility] Urine URINE SPECIMEN OBTAINED BY CLEAN CATCH PROCEDURE / Unknown Collection / Unknown 05/16/2025 12:17 AM CDT 05/16/2025 12:23 AM CDT Carline Darby DO LAB - URINE CHEMISTRY ORDERABLES Final Result Performing Organization Address City/[facility]/ZIP Co de Phone Number [address] [address], [place] [phone] * CREATININE URINE RANDOM (05/16/2025 12:17 AM CDT) Creatinine Urine 23.02 Not Established mg/dL 05/16/2025 12:46 AM CDT [facility] Urine URINE SPECIMEN OBTAINED BY CLEAN CATCH PROCEDURE / Unknown Collection / Unknown 05/16/2025 12:17 AM CDT 05/16/2025 12:23 AM CDT Carline Darby DO LAB - URINE CHEMISTRY ORDERABLES Final Result Performing Organization Address City/[facility]/ZIP Co de Phone Number [address] [address], [place] [phone] * (ABNORMAL) BILIRUBIN TOTAL+DIRECT BLOOD PANEL (05/15/2025 8:20 PM CDT) Bilirubin Total 7.0(H) 0.2 - 1.2 mg/dL 0803/2025 8:51 PM CDT [facility] Bilirubin Conjugated 4.9(H) 0.1 - 0.5 mg/dL 05/15/2025 8:51 PM CDT [facility] Bilirubin Unconjugated 2.1 Unconjugated Bilirubin is a calculated value: Reference ranges have not been established. mg/dL 05/15/2025 8:51 PM CDT [facility] Blood BLOOD SPECIMEN / Unknown Venipuncture / Unknown 05/15/2025 8:20 PM CDT 05/15/2025 8:23 PM CDT us Juno Hernandez MD LAB - CHEMISTRY ORDERABLES Final Result Performing Organization Address City/State/[facility] Co de Phone Number [address] [address], [facility] [phone] * CT Chest Pe W Abd Pelvis [...] verification. > Dictated by Tom Dinh DO, (vice president biostatistics). > Dictated by Record Searcher I, Ann-Marie Campa MD have personally reviewed and interpreted this examination/study. > Interpreting Provider: Ann-Marie Campa MD on 05/15/2025 10:20 PM Narrative 05/15/2025 10:20 PM CDT PROCEDURE: CT CHEST PE W ABD PELVIS W CONT, DATE/TIME OF EXAM: 05/15/2025 7:52 PM, LOCATION [facility] INDICATION: R06.02: Shortness of breath Ordering Provider [...] CONT, DATE/TIME OF EXAM:05/15/2025 7:52 PM, LOCATION [facility] INDICATION: R06.02: Shortness of breath Ordering Provider [...] verification. > Dictated by Tom Dinh DO, (vice president biostatistics). > Dictated by Record Searcher I, Ann-Marie Campa MD have personally reviewed and interpreted this examination/study. > Interpreting Provider: Ann-Marie Campa MD on 05/15/2025 10:20 PM us Juno Hernandez MD CT ORDERABLES Final Resul t * (ABNORMAL) TROPONIN-I HIGH SENSITIVE REFLEX 1HOUR (05/15/2025 4:06 PM CDT) Troponin I High Sensitive 23(H) <=14 ng/L 05/15/2025 4:53 PM CDT [facility] Delta Troponin I HS <0 <6 ng/L 05/15/2025 4:53 PM CDT [facility] Blood BLOOD SPECIMEN / Unknown Venipuncture / Unknown 05/15/2025 4:06 PM CDT 05/15/2025 4:11 PM CDT Sweta Lundy PA-C LAB - CHEMISTRY ORDERABLES Fi nal Result [address] [address], [place] [phone] * (ABNORMAL) TROPONIN-I HIGH SENSITIVE BASELINE + 1HR (05/15/2025 2:54 PM CDT) Troponin I High Sensitive 24(H) <=14 ng/L 05/15/2025 3:43 PM CDT [facility] Blood BLOOD SPECIMEN / Unknown Venipuncture / Unknown 05/15/2025 2:54 PM CDT 05/15/2025 3:00 PM CDT us Sweta Dagne Doverdavid PA-C LAB - CHEMISTRY ORDERABLES Fi nal Result [address] [address], [place] [phone] * (ABNORMAL) PT-INR (05/15/2025 2:54 PM CDT) PT 29.5(H) 12.1 - 14.8 Seconds 05/15/2025 3:49 PM CDT [facility] INR 2.9 See Comment 05/15/2025 3:49 PM CDT [facility] Comment:The suggested therap eutic range for standard coumadin (warfarin) therapy is an INR of 2.0-3.0. For high-risk patients (Mechanical Mitral Valve Prosthesis, etc.), the suggested prophylactic therapeutic range is an INR of 2.5-3.5. Blood BLOOD SPECIMEN / Unknown Venipuncture / Unknown 05/15/2025 2:54 PM CDT 05/15/2025 3:00 PM CDT Sweta Lundy PA-C LAB - COAGULATION ORDERABLES Final Result [facility] [address] [place] [address] [phone] * (ABNORMAL) B-TYPE NATRIURETIC PEPTIDE (05/15/2025 2:54 PM CDT) Pathologist [facility] BNP 2,209(H) <100 pg/mL 05/15/2025 3:43 PM CDT [facility] Comment: A decision threshold of 100 [...] 2:54 PM CDT 05/15/2025 3:00 PM CDT Risk Ident LAB - CHEMISTRY ORDERABLES Fi nal Result Performing Organization Address City/[facility]/ZIP Co de Phone Number [address] [address], [place] [phone] * (ABNORMAL) LIPASE BLOOD (05/15/2025 2:54 PM CDT) Lipase 7(L) 8 - 78 U/L 05/15/2025 3:45 PM CDT [facility] Blood BLOOD SPECIMEN / Unknown Venipuncture / Unknown 05/15/2025 2:54 PM CDT 05/15/2025 3:00 PM CDT Narrative [facility] - 05/15/2025 3:45 PM CDT Lipase results from the Ecwid[employer]ity analyzer may not be comparable with other methodologies. [email or web address] LAB - CHEMISTRY ORDERABLES nal Result Performing Organization Address [facility] Co de Phone Number [address] [address], [place] [phone] * XR CHEST 2VW (05/15/2025 2:41 PM [...] Final Result from Last 3 Months Insurance [facility] MEDICAID - OUT OF STATE [facility] MEDICARE MANAGED CARE PLAN GENERIC MEDICARE ADV Member Subscriber Plan / Payer (Ef fective for All Dates) Name:Richa Pennn Yumiko Relation to Subscriber:Self Name:Loretta Penn V Payer ID:Not on file Group ID:Not on file Type:Medicare-Managed Care Address: [address] [place] [phone] Advance Directives Documents on File Type Date Recorded Patient Debt Counselor Expl anation Adv Directive/Living Will/POA 06/07/2025 12:27 PM * Full Code (Latest Code Status on File) Date Activated Date Inactivated Comments 05/15/2025 9:15 PM 06/06/2025 6:30 PM Care Teams Service Department Manager Relationship Specialty Start Date End Date Fredis Klein, JOHN-ORE PUNCHER [address] [place] [address] PCP - General 08/08/18
--- OUTSIDE RECORDS SUMMARY | 2025-06-08 01:06 | XMS_ITS | Encounter Summary ---
Author Organization [facility] Address [address] [place] [address] Care Team Providers Care Automotive Alignment Specialist Name Role Phone Ernie Fredis Irina CABLE INSTALLATION MANAGER-MONOGRAM TECHNICIAN Primary Care Provider Reason for Visit * Reason Onset Date Comments Transitional Care 06/07/2025 Encounter Details Date Type Department Care Team (Late st Contact Info) Description 06/07/2025 Telephone Transitional Care at [address] [address] Radha Villegas, RN Transitional Care [...] and heating? Not hard at all 05/15/2025 [facility] - Occupational Stress [...] were you homeless or living in a fci (including now)? No 05/15/2025 Comments Unknown Sex [...] AM CDT Spoke with patient's nurse at [facility] ([phone]). Patient is being followed by facility physician, Dr. Reddy. Call duration: 3 mins Radha Villegas RN, BSN Collator Operator, [facility] [phone] 06/07/2025 documented in this encounter Plan of Treatment Upcoming Encounters Date Type Department Care Team (Late st Contact Info) Description 11/28/2025 1:30 PM BAG WORKER Office Visit [facility] [address] [facility], [place] [address] Tiffanie Brown MD [address] [place] [id number] documented as of this encounter Visit Diagnoses Not on filedocumented in this encounter Care Teams Automotive Alignment Specialist Relationship Specialty Start Date End Date Fredis Klein, JOHN-MONOGRAM TECHNICIAN [address] [place] [id number] PCP - General 08/08/18 documented as of this encounter
--- OUTSIDE RECORDS SUMMARY | 2025-06-08 01:07 | XMS_ITS | Encounter Summary ---
Author Organization [facility] Address [address] [place] [address] Phone Care Team Providers Care Personnel Officer Name Role Phone Oswaldo Serrano MD Primary Care Provider [phone] Angel Crowe DPCiara Unavailable [phone] Mora Fritz Unavailable Unavailable Ok Jorge MD Unavailable Orlin Urbina APRN, PHARMACIST ASSISTANT Unavailable [phone] Reason for Visit * Reason Comments Medication Refill Encounter Details Date Type Department Care Team (Late st Contact Info) Description 12/10/2020 Refill [facility] - [facility] Medicine - [place] [address] [place] [address] Oswaldo Serrano MD #[address] [address] Medication Refill Social History Tobacco Use Types [...] COVID-19? No / Unsure 12/13/2020 11:23 AM LIBRARY ACQUISITIONS TECHNICIAN documented as of this encounter Miscellaneous [...] Visits 2 days ago [facility] - Oswaldo Moreno MD 1 month ago [facility] - Connor Hutchinson APN, YUDI 2 months ago Flu-like symptoms [facility] - Oswaldo Moreno MD 2 months ago Chronic joint pain [facility] - Oswaldo Moreno MD 4 months ago Diabetic polyneuropathy associated with type 2 diabetes mellitus (HCC) [facility] - Connor Hutchinson APN, YUDI Upcoming Appointments Future Appointments In 5 days Ok Jorge MD [facility] Medical [facility] - Endocrinology - [place], [facility] INFECTION PREVENTION SPECIALIST - Recent and Past Visits Recent Visits Date Type Provider Dept 12/08/20 Telemedicine Oswaldo Serrano MD [facility] 11/07/20 Telemedicine Connor Yuan APN, YUDI [facility] [place] 10/09/20 Office Visit Oswaldo Serrano, MD [facility] 09/16/20 Telemedicine Oswaldo Serrano, [facility] 07/18/20 Office Visit Connor Yuan APN, YUDI [facility] [place] 07/11/20 Telemedicine Connor Yuan APN, YUDI [facility] 06/09/20 Office Visit Oswaldo Serrano, [facility] [place] 05/29/20 Telemedicine Oswaldo Serrano, [facility] [place] 04/07/20 Office Visit Connor Yuan APN, YUDI [facility] 03/18/20 Telemedicine Oswaldo Serrano, [facility] Showing recent visits within past 460 days with a meds authorizing provider and meeting all other requirements Future Appointments No visits were found meeting these conditions. Showing future appointments within next 90 days with a meds authorizing provider and meeting all other requirements ARY ACQUISITIONS TECHNICIAN documented in this encounter Plan of Treatment Upcoming Encounters Date Type Department Care Team (Late st Contact Info) Description 07/17/2025 2:45 PM CDT Office Visit [facility] Medical [facility] - Family Medicine - [place] [address] [place] [address] Oswaldo Serrano MD #[address] [address] 07/22/2025 2:30 PM CDT Office Visit [facility] - Endocrinology - [place] #2 [place] [address] Ok Jroge MD [address] [address] 07/30/2025 2:45 PM CDT Office Visit [facility] [address] [place] [address] Orlin Urbina APRN, PHARMACIST ASSISTANT [address] [place] [address] documented as of this encounter Visit Diagnoses Not on filedocumented in this encounter Additional Health Concerns Infection Onset Date Last Indicated Resolved Time COVID - 19 07/28/2021 07/29/2021 08/17/2021 12:1 6 AM LIBRARY ACQUISITIONS TECHNICIAN Assessment Noted Time PHQ-9 Depression Total Score: 2 07/18/20 4:26 PM CDT documented as of this encounter Care Teams Personnel Officer Relationship Specialty Start Date End Date Oswaldo Serrano MD #[address] [address] PCP - General Family Medicine 05/19/17 Angel Crowe DPM #[address] [address] Consulting Physician Podiatry 06/16/17 Mora Fritz Behavioral Health Navigator 06/15/18 Ok Jorge MD #[address] [address] Consulting Physician Endocrinology 05/12/22 Orlin Urbina, MANAGER CRITICAL CARE UNIT, PHARMACIST ASSISTANT #[address] [place] [address] Nurse Practitioner Advanced Practice Nurse 11/09/22 documented as of this encounter
--- OUTSIDE RECORDS SUMMARY | 2025-06-08 01:07 | XMS_ITS | Clinical Summary ---
Author Organization [facility] Address [address] [place] [address] Care Team Providers Care A R Collections Rep Name Role Phone Oswaldo Serrano MD Primary Care Provider [phone] Pastora Flores MD Unavailable Sandro Hong MD Unavailable Juanis Lo MD Unavailable [phone] Allergies Active Allergy Reactions Criticality Noted Date [...] 1 tablet by mouth daily Active multivit raytztzp-rmnk-YQ -calcium (THERA-M) 9 mg iron-400 mcg tablet [...] At outside hospital, before this transferral to [facility], she was agitated requiring IV Haldol 5. [...] At outside hospital, before this transferral to [facility], she was agitated requiring IV Haldol 5. [...] At outside hospital, before this transferral to [facility], she was agitated requiring IV Haldol 5. [...] At outside hospital, before this transferral to [facility], she was agitated requiring IV Haldol 5. [...] At outside hospital, before this transferral to [facility], she was agitated requiring IV Haldol 5. [...] At outside hospital, before this transferral to [facility], she was agitated requiring IV Haldol 5. [...] At outside hospital, before this transferral to [facility], she was agitated requiring IV Haldol 5. [...] At outside hospital, before this transferral to [facility], she was agitated requiring IV Haldol 5. [...] At outside hospital, before this transferral to [facility], she was agitated requiring IV Haldol 5. [...] At outside hospital, before this transferral to [facility], she was agitated requiring IV Haldol 5. [...] At outside hospital, before this transferral to [facility], she was agitated requiring IV Haldol 5. [...] At outside hospital, before this transferral to [facility], she was agitated requiring IV Haldol 5. [...] At outside hospital, before this transferral to [facility], she was agitated requiring IV Haldol 5. [...] At outside hospital, before this transferral to [facility], she was agitated requiring IV Haldol 5. [...] was referred to Valve clinic here at [facility]. However, she did not follow up. Valve [...] was referred to Valve clinic here at [facility]. However, she did not follow up. Valve [...] was referred to Valve clinic here at [facility]. However, she did not follow up. Valve [...] was referred to Valve clinic here at [facility]. However, she did not follow up. Valve [...] was referred to Valve clinic here at [facility]. However, she did not follow up. Valve [...] was referred to Valve clinic here at [facility]. However, she did not follow up. Valve [...] was referred to Valve clinic here at [facility]. However, she did not follow up. Valve [...] was referred to Valve clinic here at [facility]. However, she did not follow up. Valve [...] was referred to Valve clinic here at [facility]. - Consult valve team for possible TR repair Assessment & Plan (02/24/2025 5:36 AM CDT): CTS was consulted during Oct 2024 admission and mentioned not candidate for surgery due to intellectual disability and will not do well postop in ICU with tubes. - Referred to Valve clinic here at [facility] Acute exacerbation of chronic heart failure 02/07 Assessment & Plan (03/05/2025 10:58 AM CDT): Presented to [facility] for MAYS, orthopnea, difficulty mobilizing for 2-3 weeks. Her garden machinery mechanic Dr. Flores increased lasix from 40 every [...] Plan (03/04/2025 10:24 AM CDT): Presented to [facility] for MAYS, orthopnea, difficulty mobilizing for 2-3 weeks. Her garden machinery mechanic Dr. Flores increased lasix from 40 every [...] Plan (03/03/2025 7:19 AM CDT): Presented to [facility] for MAYS, orthopnea, difficulty mobilizing for 2-3 weeks. Her garden machinery mechanic Dr. Flores increased lasix from 40 every [...] Plan (03/02/2025 2:33 PM CDT): Presented to [facility] for MAYS, orthopnea, difficulty mobilizing for 2-3 weeks. Her garden machinery mechanic Dr. Flores increased lasix from 40 every [...] Plan (03/01/2025 10:24 AM CDT): Presented to [facility] for MAYS, orthopnea, difficulty mobilizing for 2-3 weeks. Her garden machinery mechanic Dr. Flores increased lasix from 40 every [...] Plan (02/28/2025 3:45 PM CDT): Presented to [facility] for MAYS, orthopnea, difficulty mobilizing for 2-3 weeks. Her garden machinery mechanic Dr. Flores increased lasix from 40 every [...] Plan (02/27/2025 12:52 PM CDT): Presented to [facility] for MAYS, orthopnea, difficulty mobilizing for 2-3 weeks. Her garden machinery mechanic Dr. Flores increased lasix from 40 every [...] Plan (02/26/2025 11:04 AM CDT): Presented to [facility] for MAYS, orthopnea, difficulty mobilizing for 2-3 weeks. Her garden machinery mechanic Dr. Flores increased lasix from 40 every [...] Plan (02/25/2025 11:56 AM CDT): Presented to [facility] for MAYS, orthopnea, difficulty mobilizing for 2-3 weeks. Her garden machinery mechanic Dr. Flores increased lasix from 40 every [...] Plan (02/24/2025 6:41 AM CDT): Presented to [facility] for MAYS, orthopnea, difficulty mobilizing for [...] Type Department Care Team Description 03/29/2025 Telephone [facility] - [place], [place] Cardiology [address] [facility] 8th [place] [address] [place] [id number] Kezia Engel 03/27/2025 Telephone [facility] - [place], [place] Cardiology [address] [facility] 8th [place] [address] [place] [phone] Carlitos Varghese 03/27/2025 Telephone [facility] - [place], [place] Cardiology [address] [facility] 8th [place] [address] [place] [phone] Carlitos Varghese Scheduling Appointments from Last 3 [...] Smokeless Tobacco: Never Tobacco Cessation:Counseling Given: No [facility] Utilities Answer Date Recorded In the past 12 months has [employer], [employer], oil, or water [employer] threatened to shut off services in your [...] often do you attend chur ch or anabaptist services? Never 02/25/2025 Do you belong to [...] in the past 12 m [facility], were you homeless or living in a custodial (including now)? No 02/25/2025 Personal Safety Answer Date Recorded Have you ever been in or are you currently in a harmful physical or emotional relationship or is someone making you feel afraid or unsafe? 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 Gender Identity Not on file Sexual [...] history exists Medical Devices Implanted Type Area Business Unit Director Device Identifier Shelf Expiration Date Model / Serial / Lot Biotronik Iperia 7 Drt-05/20/2017 Implanted:08/2017 by Jasper Mcfarland MD (Quantity not on file) ICD Chest Wall [employer]ik [id number] / [id number] / Biotronik Rv Lead [id number]/11/2 017 Implanted:08/2017 (Quantity not on file) Lead Heart [id number] / [id number] / Biotronik Ra Lead [id number]/21/2 018 Implanted: (Quantity not on file) Lead Heart Biotronik [id number] / [id number] / Unknown Wire (~5cm Long) Other - see comments Chest Stent Stent Heart [facility] Mynxgrip 5fr Balloon Catheter Integrate Sealant Lock Latex Free [id number] - [id number] Implanted:Qty : 1 on 10/23/2024 by Sandro Hong MD at [facility] 07/17/2026 [id number] / / [id number] Procedures Procedure Name Priority Date/Time Associated Diagnosis [...] MD LAB BLOOD ORDERABLES Final R esult [facility] [place] [address] * (ABNORMAL) Hepatitis panel, acute Blood (02/24/2025 11:49 AM CDT) Pathologist [facility] [place] Hep A IgM Nonreactive Nonreactive Hep B core IgM Nonreactive Nonreactive [facility] Hep C Ab Reactive(A) Nonreactive [facility] Comment: Reactive for HCV antibodies. This may represent current or past HCV infection. Supplemental molecular testing will be automatically performed to determine current infection status in accordance with current CDC screening recommendations. Current interpretive data was last revised on 22 HepBsAg Nonreactive Nonreactive [facility] Blood 02/24/2025 11:4 9 AM CDT 02/24/2025 12:17 PM CDT us Geo Subramanian MD PhD LAB MICROBIOLOGY - GENERAL ORDERABLES Final Result [facility] [place] [address] * (ABNORMAL) Lipid panel (02/24/2025 11:49 AM [...] on 2018. Triglycerides 70 <=149 mg/dL [facility] Comment: Interpretive Data Ages < or = [...] on 2018. HDL 16(L) >=40 mg/dL [facility] Comment: Interpretive Data Ages < or = [...] 2018. LDL, calculated 73 <=129 mg/dL [facility] Comment: Interpretive Data Ages < or = [...] revised on 2024. Non-HDL Cholesterol 88 mg/dL [facility] Comment: Interpretive Data Ages < or = [...] last revised on 2018. Chol/HDL ratio 7 [facility] Blood 02/24/2025 11:4 9 AM CDT 02/24/2025 12:36 PM CDT us Geo Subramanian MD PhD LAB BLOOD ORDERABL ES Final Result [facility] [place] [address] * (ABNORMAL) Hemoglobin A1c (02/23/2025 9:51 PM CDT) Hgb A1C 8.6(H) 4.0 - 5.6 % Estimated Average Glucose 200 mg/dL [facility] Comment: The ADA recommends reporting an estimated Average Glucose (eAG) with all Hemoglobin A1c results using the equation derived from a study of 507 normal and diabetic adults. Minority populations were underrepresented and children were not included. (Diabetes Care 2020; 43(S1): S66-S76). The eAG is not equivalent to a fasting glucose. Blood 02/23/2025 9:51 PM CDT 02/23/2025 10:40 PM CDT Narrative [facility] - 02/24/2025 5:17 PM CDT reflex us Geo Subramanian MD PhD LAB BLOOD ORDERABL ES Final Result [facility] Department [place] [address] * COLONOSCOPY REPORT (03/04/2017) Anatomical Region Laterality Modality Other Narrative 03/04/2017 Ordered by an unspecified provider. Historical Provider GI PROCEDURE ORDERABLES F inal Result from Last 3 Months or Most Recently Relevant to Health Maintenance Insurance MEDICARE [facility] [place] [address] [place] [address] [facility] Advance Directives For more information, please contact: [phone] * Full Code (Latest Code Status on [...] 9:54 PM 06/09/2024 3:14 AM Care Teams A R Collections Rep Relationship Specialty Start Date End Date Oswaldo Serrano MD [address] [address] PCP - General Family Medicine 04/14/18 [place] [address] [address] Consulting Physician Cardiology 06/08/24 Sandro Hong MD [address] [place] [address] Referring Physician Cardiology 06/21/24 Juanis Lo MD [address] [facility] [address] [facility] [place] [address] Referring Physician Cardiology 03/29/25
--- OUTSIDE RECORDS SUMMARY | 2025-06-08 01:07 | XMS_ITS | Patient Health Record ---
Author Organization [facility] Address [address] [facility] [address] [place], [place] [address] Care Team Providers Care Meter Repairer Helper Name Role Phone DAISHAJEREMÍAS Primary Care Provider Allergies Allergen (clinical drug ingredient) Drug/Non Drug Allergy documented on EMR Reaction Allergy Type Onset Date Status Substance with sulfonamide structure and antibacterial mechanism of action (substance) Sulfa Antibiotics Unknown Drug Allergy Active Results Component Value Reference Range Notes C-REACTIVE PROTEIN (4420) Reviewed date:08/10/2024 09:35:16 AM Interpretation: Performing Lab:[facility]-[id number] [id number] Krista Montiel MD Notes/Report: FASTING: NO [...] MPV 10.3 7.5-12.5 fL ABSOLUTE NEUTROPHILS 4795 2952-0810 cells/uL ABSOLUTE LYMPHOCYTES 3704 467-9516 cells/uL ABSOLUTE MONOCYTES 637 200-950 cells/uL ABSOLUTE EOSINOPHILS 322 15-500 cells/uL ABSOLUTE BASOPHILS 98 0-200 cells/uL NEUTROPHILS 68.5 LYMPHOCYTES 16.4 MONOCYTES 9.1 EOSINOPHILS 4.6 BASOPHILS 1.4 COMPREHENSIVE METABOLIC PANE (98082) Reviewed date:08/10/2024 03:56:35 PM Interpretation: Performing Lab:[facility], [employer] [facility]-[id number] Niyah Sheets, [place] Krista Montiel MD Notes/Report: FASTING: NO FASTING:NO [...] phone, visiting friends or family, going to religion or club meetings) I choose not to answer this question How stressed are you? Stress is when someone feels tense, nervous, anxious, or can't sleep at night because their mind is troubled I choose not to answer this question In the past year have you sp ent more than 2 nights in a row in a [place], snf, usp center, or juvenile correctional facility? I choose [...] Notes Problem Inappropriate diet and eating habits (4152044148051) Inappropriate diet and eating habits (Z72.4) 01/31/20 Active confirmed Problem Obese class III (finding) (671667237) Obesity, class 3 (E66.813) 01/31/20 Active confirmed Problem Chronic systolic congestive heart failure (I50.22) Active [...] 01/30/2025 Encounters Encounter Location Date Provider Diagnosis [facility] [address] [facility] [place], [place] [id number] 08/09/2024 JEREMÍAS ASHTON Acute bacterial endocarditis I33.0 ; Bacteremia R78.81 ; Methicillin susceptible Staphylococcus aureus infection as the cause of diseases classified elsewhere B95.61 and 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, initial encounter T82.7XXA [address] [id number] 09/17/2024 [facility] Acute bacterial endocarditis I33.0 and 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, initial encounter T82.7XXA [address] [id number] 01/30/2025 [facility] Acute bacterial endocarditis I33.0 ; 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, initial encounter T82.7XXA ; Chronic systolic congestive heart failure I50.22 ; Obesity, class 3 E66.813 and Inappropriate diet and eating habits Z72.[address] [id number] 09/18/[address] [id number] 12/17/[address] [id number] 02/21/2025 [facility] Assessments Encounter Date Diagnosis (ICD Code) Assessment [...] above. She will follow up with the director clinical pharmacology. 01/30/2025 Acute bacterial endocarditis (ICD-10 - I33.0) A long discussion is had with the patient and her sister about the importance of restarting the antibiotics at the correct dosing and she is given refills. This will be lifelong therapy as she is no longer a candidate for PPM change or valvular surgery. She will follow up with the director clinical pharmacology as she has severe CHF, valvular dysfunction, and is volume overloaded. Given her inability to comply with medications, a CPAP, weight loss, low sodium diet, and is no longer a surgical candidate, she is encouraged to talk with the director clinical pharmacology about the possiblity for hospice care. In [...] Of Treatment Next Appt Details Provider Name:JEREMÍAS العلي Lina, 08/01/2025 01:00:00 PM, [address], [facility] , [place], [place], [id number], Insurance Providers Payer Name Payer Address Payer Phone Subscriber Number Group Number Insured Name Patient Relationship to Insured Coverage Start Date Coverage End Date [employer] [address] [place] [id number] Loretta Moses am Self - patient is the insured [address] [place], [place] [address]t of Public Aid [address] [address] [place], [place] [id number] Loretta Moess am Self - patient is the insured Medical (General) History Medical History History ICD Code GERD Obesity Diabetes Mellitus Type 2 Hypertension CHF Atrial fibrillation Ventricular tachycardia/fibrillation Intellectual disability Chronic constipation Hypothyroidism JSOE poorly compliant with CPAP OAB with frequent UTIs Depression TV/AICD vegetation from [facility] Moderate MR Severe TR Surgical History Surgery Date(Month/Year) Cholecystectomy AICD placement then removal
--- OUTSIDE RECORDS SUMMARY | 2025-06-08 01:07 | XMS_ITS | Encounter Summary ---
Author Organization [facility] Address [address] [place] [address] Phone Care Team Providers Care Instructional Coordinator Name Role Phone Oswaldo Serrano MD Primary Care Provider [phone] Angel Crowe DPM Unavailable [phone] Mora Fritz Unavailable Unavailable Ok Jorge MD Unavailable Orlin Urbina APRN, GUARD IMMIGRATION Unavailable [phone] Reason for Visit * Reason Comments Medication Refill Encounter Details Date Type Department Care Team (Late st Contact Info) Description 12/23/[address] [facility] #[address] [place] [address] Orlin Urbina APRN, GUARD IMMIGRATION [address] [place] [address] Medication Refill Social History Tobacco Use Types [...] Coronavirus/COVID-19? No / Unsure 11/25/2022 12:13 PM MEDICAL LIBRARIAN documented as of this encounter Plan of Treatment Upcoming Encounters Date Type Department Care Team (Late st Contact Info) Description 07/17/2025 2:45 PM CDT Office Visit [facility] Medical Group - Family Medicine [facility] [place] [address] [place] [address] Oswaldo Serrano MD #[address] [address] 07/22/2025 2:30 PM CDT Office Visit [facility] Medical [facility] - Endocrinology [facility] [address] [place] [address] Ok Jorge MD #2 [facility] [address] [place] [address] 07/30/2025 2:45 PM CDT Office Visit [facility] #[address] [place] [address] Orlin Urbina APRN, GUARD IMMIGRATION [address] [place] [address] documented as of this encounter Visit Diagnoses Not on filedocumented in this encounter Additional Health Concerns Assessment Noted Time PHQ-9 Depression Total Score: 0 10/14/19 23 11:00 AM MEDICAL LIBRARIAN documented as of this encounter Care Teams Instructional Coordinator Relationship Specialty Start Date End Date Oswaldo Serrano MD #2 [facility] [address] [place] [address] PCP - General Family Medicine 05/19/17 Angel Crowe DPM #2 [facility] [address] [place] [address] Consulting Physician Podiatry 06/16/17 Mora Fritz Behavioral Health Navigator 06/15/18 Ok Jorge MD #2 [facility] [address] [place] [address] Consulting Physician Endocrinology 05/12/22 Orlin Urbina APRN, GUARD IMMIGRATION [address] [place] [address] Nurse Practitioner Advanced Practice Nurse 11/09/22 documented as of this encounter
--- OUTSIDE RECORDS SUMMARY | 2025-06-08 01:07 | XMS_ITS | Clinical Summary ---
Author Organization [facility] Address [address] [place] [address] Phone Care Team Providers Care Box Attacher Name Role Phone Oswaldo Serrano MD Primary Care Provider Angel Crowe DPM Unavailable [phone] Mora Fritz Unavailable Unavailable Ok Jorge MD Unavailable Orlin Urbina APRN, SYSTEM SAFETY ENGINEER Unavailable [phone] Allergies Active Allergy Reactions Criticality Noted Date [...] Continuous Blood Gluc Transmit (Dexcom G6 Transmitter) [place] 2021 Active Cyanocobalamin (B-12) 500 MCG TabletIndications: Vitamin B12 Deficiency Take 1 Tablet by mouth daily. 90 Tablet 3 2022 Active Blood Glucose Monitoring Suppl Device Test blood glucose 1x daily, E11.9, insulin dependent 1 Each 2022 Active Lancets [place]ee 1 Lancet by Does not apply route daily. Test blood glucose 1x daily. E11.9, insulin dependent 100 Lancet 3 2022 Active fluticasone (FLONASE) 50 MCG/ACT SuspensionIndicati ons:Nasal Congestion 1-2 Sprays by Nasal route daily. Use in each nostril as directed. 1 g 3 2022 Active Insulin Pen Needle (BD Pen Needle Trina 2nd Gen) 32G X 4 MM [place] USE TO INJECT FOUR TIMES DAILY 400 [...] Capsule 1 2024 Active Continuous Glucose Sensor (Piximcom G7 Sensor) Misc 1 Each by Does [...] EVERY MORNING, Reported on 05/14/2025 Continuous Glucose Coating Machine Helper (Piximcom G7 Coating Machine Helper) Device 1 Each by Does not apply [...] Care Team Description 05/20/2025 Home Care Visit [facility] [address] [place] [address] Merry Davey RN SN - OASIS TRANSFER W/OUT DC 05/16/2025 Refill [facility] [address] [place] [address] Oswaldo Serrano MD Medication Refill 05/16/2025 Results Follow-Up [facility] #[address] [place] [address] Oswaldo Serrano MD URINALYSIS REFLEX IF INDICATED BY ABNORMAL RESULTS 05/14/2025 3:00 PM CDT Home Care Visit [address] [address] Merry Davey, RN SN - HOME VISIT 05/14/2025 Home Care Visit [address] [address] Merry Davey, RN CARE CONFERENCE 05/07/2025 1:30 PM CDT Home Care Visit [address] [address] Hina Fernandes, PT PT - INITIAL EVALUATION 05/07/2025 12:00 PM CDT Home Care Visit [address] [address] Tika Tobin LPN SN - HOME VISIT 05/07/2025 Travel 05/06/2025 Home Care Visit [address] [address] Rosa Hurt, PT TELEPHONE ENCOUNTER 05/03/2025 Telephone [facility] Family Medicine [facility] [address] [place] [address] Oswaldo Serrano MD 05/03/2025 Plan of Care Documentation [address] [address] 05/02/2025 1:00 PM CDT Home Care Visit [address] [address] Merry Davey, RN SN - OASIS START OF CARE 04/19/2025 1:15 PM CDT Office Visit [facility] Endocrinology [facility] [address] [place] [address] Ok Jorge MD Type 2 diabetes mellitus treated with insulin (HCC) (Primary Dx); Insulin dose changed (HCC); Class 2 severe obesity due to excess calories with serious comorbidity and body mass index (BMI) of 37.0 to 37.9 in adult ([facility]) Discharge Disposition: Discharged to home or Selfcare 04/19/2025 Travel 04/15/2025 1:30 PM CDT Home Care Visit [address] [address] Rosa Hurt, PT PT - OASIS DISCHARGE 04/09/2025 2:30 PM CDT Home Care Visit [address] [address] Alondra Covarrubias, MECHANICAL RELIABILITY ENGINEER PT - HOME VISIT 04/09/2025 12:00 PM CDT Home Care Visit [address] [address] Merry Davey RN SN - DISCIPLINE DISCHARGE 04/09/2025 Telephone [facility] Gastroenterology [facility] [address] [place] [address] Lou Bhatt APRN, SYSTEM SAFETY ENGINEER 04/05/2025 Home Care Visit [address] [address] Ivette Canales OT OT - DISCHARGE SUMMARY 04/03/2025 2:30 PM CDT Home Care Visit [address] [address] Alondra Covarrubias MECHANICAL RELIABILITY ENGINEER PT - HOME VISIT 04/02/2025 12:00 PM CDT Home Care Visit [address] [address] Sweta House OTA OT - DISCIPLINE DISCHARGE 04/02/2025 Home Care Visit [address] [address] Sweta House OTA CASE COMMUNICATION 04/02/2025 Travel 04/01/2025 Results Follow-Up [facility] - Family Medicine [facility] [address] [place] [address] Oswaldo Serrano MD HEPATITIS C ANTIBODY 03/29/2025 12:30 PM CDT Home Care Visit [address] [address] Mica Austin OTA OT - HOME VISIT 03/28/2025 Home Care Visit [address] [address] Mica Austin, ADRIAN RESCHEDULED MISSED VISIT 03/28/2025 Results Follow-Up [facility] [address] [place] [address] Oswaldo Serrano MD HEPATITIS PANEL ACUTE (AHP), CMP (COMPREHENSIVE METABOLIC PANEL) 03/28/2025 Home Care Visit [address] [address] Mica Austin OTA TELEPHONE ENCOUNTER 03/27/2025 2:45 PM CDT Home Care Visit [address] [address] Liz Cooper, FLY TIER-SPEECH LANGUAGE PATHOLOGIST FLY TIER - INITIAL EVALUATION 03/27/2025 Telephone [facility] [address] [place] [address] Oswaldo Serrano MD Need Order 03/26/2025 1:30 PM CDT Home Care Visit [address] [address] Mica Austin OTA OT - HOME VISIT 03/26/2025 11:00 AM CDT Home Care Visit [address] [address] Ynes Garcia RN SN - HOME VISIT 03/26/2025 11:00 AM CDT Home Care Visit [address] [address] Alicia Bundy, PT PT - INITIAL EVALUATION 03/26/2025 Home Care Visit [address] [address] Mica Austin OTA CASE COMMUNICATION 03/25/2025 Telephone [facility] [address] [place] [address] Ok Jorge MD Medication Refill 03/22/2025 11:00 AM CDT Home Care Visit [address] [address] Merry Davey, RN SN - HOME VISIT 03/21/2025 1:00 PM CDT Home Care Visit [address] [address] Ivette Canales OT OT - INITIAL EVALUATION 03/20/2025 2:30 PM CDT Office Visit [facility] Family Medicine [facility] [address] [place] [address] Oswaldo Serrano MD Congestive heart failure, unspecified HF chronicity, unspecified heart failure type (HCC) (Primary Dx); Gastroesophageal reflux disease, unspecified whether esophagitis present; Obesity (BMI 30-39.9); Rash; Skin lesion Discharge Disposition: Discharged to home or Selfcare 03/20/2025 Telephone [facility] [address] [place] [address] Ok Jorge MD Medication Management 03/20/2025 Telephone [facility] [address] [place] [address] Oswaldo Serrano MD Need Order 03/20/2025 Travel 03/20/2025 Home Care Visit [address] [address] Ynes Torres OT TELEPHONE ENCOUNTER 03/19/2025 10:00 AM CDT Home Care Visit [address] [address] Merry Davey, RN SN - OASIS START OF CARE 03/19/2025 Plan of Care Documentation [address] [address] 03/14/2025 Telephone [facility] - [place] [address] [place] [address] Ok Jorge MD Medication Management from Last 3 Months Immunizations Immunization Administration Dates Next Due Covid-19, Mrna, Lnp-s, Pf, 3 0 Mcg/0.3 Ml Dose (Pfizer) 01/18/2021,12/23/2020 Influenza Vaccine 07/02/2014 Influenza Vaccine, Quadrivalent, PF 08/10,07/18/2020,06/22/2019,08/19,07/17/2015,07/02/2014 Pneumococcal conjugate PCV20 , polysaccharide [id number] conjugate, adjuvant, PF 08/26/2022 TDAP Vaccine 06/10/2024 [...] drink = 0.6 oz pur e alcohol) [facility] Utilities Answer Date Recorded In the past 12 months has [employer], gas, oil, or water [employer] threatened to shut off services in your [...] attend chur ch or muslim services? Never 11/29/2024 Do you belong to [...] Total Score - Questions 1-9 2 10/11 [facility] - Occupational [...] place to sleep or slept in a correction (including now)? No 11/09/2023 Housing Stability Vital Sign Answer Charlie e Recorded In the last 12 months, was t here a time when you were not able to pay the mortgage or rent on time? No 11/29/2024 In the past 12 months, how m any times have you moved where you were living? 0 11/29/2024 At any time in the past 12 m [facility], were you homeless or living in a correction (including now)? No 11/29/2024 Education Answer Date [...] [facility] [place] [address] [place] [address] Oswaldo Serrano MD [address] [address] 07/22/2025 2:30 PM CDT Office Visit [facility] [place] #2 [place] [address] Ok Jorge MD #[address] [phone] 07/30/2025 2:45 PM CDT Office Visit [facility] #[address] [place] [address] Orlin Urbina APRN, SYSTEM SAFETY ENGINEER [address] [place] [address] Health Maintenance Due Date Last Done Comments [...] DIGITAL W CAD Routine 12/01/2023 3:15 PM PATCH WORKER Abnormal mammogram HM DILATED EYE EXAM 02/23/2023 1 2:00 AM CDT PATHOLOGY CYTOLOGY RELIABILITY ENGINEER Routine 11/09/2022 3:06 PM PATCH WORKER Encounter for well woman exam with routine gynecological exam COLOGUARD Routine 09/23/2022 4:00 PM PATCH WORKER Screening for colon cancer from Last 3 Months or Most Recently Relevant to Health Maintenance Results * URINALYSIS REFLEX IF INDICATED BY ABNORMAL RESULTS (05/07/2025 12:00 AM CDT) Urine URINE SPECIMEN OBTAINED BY CLEAN CATCH PROCEDURE / Unknown Oswaldo Serrano MD URINE ORDERABLES Final Re sult Performing Organization Address [facility] de Phone Number SCAN * HEPATITIS PANEL ACUTE (AHP) (03/26/2025 12:00 AM CDT) Blood Oswaldo Serrano MD HEMATOLOGY ORDERABLES Fin al Result Performing Organization Address [facility] [address] [facility] Co de Phone Number SCAN * HEPATITIS C ANTIBODY (03/26/2025 12:00 AM CDT) 03/26/2025 Oswaldo Serrano MD CHEMISTRY ORDERABLES Ayanna l Result Performing Organization Address City/[facility] [address]/[facility] Co de Phone Number SCAN * CMP (COMPREHENSIVE METABOLIC PANEL) (03/26/2025 12:00 AM CDT) Blood Result [facility] Oswaldo Serrano MD CHEMISTRY ORDERABLES Ayanna l Result Performing Organization Address [facility] [address] [facility] de Phone Number SCAN * (ABNORMAL) POCT GLYCOSYLATED HEMOGLOBIN (01/04/2024 3:30 PM CDT) HGB-A1C 8.9(A) 4 - 6 % Blood 01/04/2024 3:30 PM CDT Ok Jorge MD POINT OF CARE TESTING (MANUAL) F inal Result * SHABANA DIAG BILATERAL DIGITAL W CAD (12/01/2023 3:15 PM PATCH WORKER) Anatomical Region Laterality Modality breast Bilateral Mammography 12/01/2023 2:48 PM PATCH WORKER Narrative 12/02/2023 1:16 PM PATCH WORKER - SHABANA DIAG BILATERAL DIGITAL W CAD [...] dated: 11/25/2022, 09/14/2022, 01/29/2022, 10/27/2021, and [facility]/2018 [facility]. BREAST TISSUE:There are scattered fibroglandular densities in [...] signed by: Arsalan Bocanegra M.D. ll/:12/01/2023 15:11:27 Product Management Manager(s): RT Lauri(R)(M), [facility] letter sent: Normal Exam Reading location: [facility] [...] dated: 11/25/2022, 09/14/2022, 01/29/2022, 10/27/2021, and 10/17/2018 [facility]. BREAST TISSUE:There are scattered fibroglandular densities in [...] signed by: Arsalan Bocanegra M.D. ll/:12/01/2023 15:11:27 Product Management Manager(s): RT Lauri(R)(M), [facility] letter sent: Normal Exam Reading location: [facility] BI-RADS: 2 Benign Oswaldo Serrano MD IMG MAMMO ORDERABLES Ayanna l Result * HM DILATED EYE EXAM (02/23/2023 12:00 AM CDT) 02/23/2023 us Provider Scan PROCEDURE/MINOR SURGICAL ORDERAB LES Final Result SCAN * PATHOLOGY CYTOLOGY RELIABILITY ENGINEER (11/09/2022 3:06 PM PATCH WORKER) SPECIMEN ADEQUACY Satisfactory for evaluation. Endocervical/transf ormation zone component is absent. 11/18/2022 10:47 AM PATCH WORKER [facility] DESCRIPTIVE DIAGNOSIS NEGATIVE FOR INTRAEPITHELIAL LESIONS OR MALIGNANCY. 11/18/2022 10:47 AM PATCH WORKER [facility] at 1047 PATCH WORKER HPV Reflex if ASCUS? Yes 11/18/2022 10:47 AM PATCH WORKER [facility] Automated Examination Analysis of this sample has been assisted by an automated imaging and review system ([employer], [employer], [place], [place]). This case is further evaluated and finalized by a armor reconnaissance vehicle driver and/or pathologist. 11/18/2022 10:47 AM PATCH WORKER [facility] Disclaimer The PAP smear is [...] 65 unless clinically indicated. 11/18/2022 10:47 AM PATCH WORKER [facility] Other CERVIX UTERI STRUCTURE / Unknown Non-Phlebotomy Collection / Unknown 11/09/2022 3:06 PM PATCH WORKER 11/09/2022 3:06 PM PATCH WORKER us Jamison Hernández MD PATHOLOGY/CYTOLOGY ORDERABLES Final Result [facility] [address] [place] [address], * COLOGUARD (09/23/2022 4:00 PM PATCH WORKER) Cologuard Negative Negative [facility] Comment: NEGATIVE TEST RESULT. A [...] Brady et al, N Engl J Med 2014;370(14):8530-2619) The normal value (reference range) for this assay is negative. COLOGUARD RE-SCREENING RECOMMENDATION: Periodic colorectal cancer screening is an important part of preventive healthcare for asymptomatic individuals at average risk for colorectal cancer. Following a negative Cologuard result, the [place] Cancer Society and U.S. Multi-Society Task Force screening guidelines recommend a Cologuard re-screening interval of 3 years. References: [place] Cancer Society Guideline for Colorectal Cancer Screening: https://www.cancer.org/cancer/duyvj-xyrrmz-faznzu/yifrmdcfz-gtnalpwxz-bkkixau/ acs-recommendations.html.; Chavez DK, Rob CR, Elroy TorresK, Colorectal Cancer Screening: Recommendations for Physicians and Patients from the U.S. Multi-Society Task Force on Colorectal Cancer Screening , Am J Gastroenterology 2017; 112:7847-0353. TEST DESCRIPTION: Composite algorithmic analysis of stool [...] colonoscopy. (Deandra Brooks, N Engl J Med 2014;370(14):8147-6467.) Cologuard may produce a false negative or false positive result (no colorectal cancer or precancerous polyp present at colonoscopy follow up). A negative Cologuard test result does not guarantee the absence of CRC or advanced adenoma (pre-cancer). The current Cologuard screening interval is every 3 years. ([place] Cancer Society and U.S. Multi-Society Task Force). Cologuard performance data in a 10,000 patient pivotal study using colonoscopy as the reference method can be accessed at the following location: www.Loop88.Tunes.com/results. Additional description of the Cologuard test process, warnings and precautions can be found at www.[employer]Show[employer]iden[employer].com. Stool 09/23/2022 4:00 PM PATCH WORKER 09/25/2022 10:38 AM PATCH WORKER Connor Yuan APRN, CNP BODY FLUIDS & ST OOLS ORDERABLES Final Result [facility] [employer] [address] [place] [address], [facility] [address] [place] [address] from Last 3 Months or Most Recently Relevant to Health Maintenance Insurance MEDICARE C [place] Advance Directives Documents on File Type Date Recorded Patient Software Support Representative Expl anation Power of Pressurizer for Health Care 05/10/2018 9:03 AM * [...] 11:54 AM 03/29/2020 10:53 PM Care Teams Box Attacher Relationship Specialty Start Date End Date Oswaldo Serrano MD #2 [facility] [address] [place] [address] PCP - General Family Medicine 05/19/17 Angel Crowe DPM #2 [facility] [address] [place] [address] Consulting Physician Podiatry 06/16/17 Mora Fritz [place] Behavioral Health Navigator 06/15/18 Ok Jorge MD #2 [facility] [address] [place] [address] Consulting Physician Endocrinology 05/12/22 Orlin Urbina APRN, SYSTEM SAFETY ENGINEER #[address] [place] [address] Nurse Practitioner Advanced Practice Nurse 11/09/22
--- OUTSIDE RECORDS SUMMARY | 2025-06-08 01:07 | XMS_ITS | Encounter Summary ---
Author Organization [facility] Address [address] [place] [address] Phone Care Team Providers Care Forming Roll Operator Name Role Phone Oswaldo Serrano MD Primary Care Provider [phone] Angel Crowe DPM Unavailable [phone] Mora Fritz Unavailable Unavailable Ok Jorge MD Unavailable Orlin Urbina APRN, PROTOCOL MANAGER Unavailable [phone] Reason for Visit * Reason Comments Medication Refill Encounter Details Date Type Department Care Team (Late st Contact Info) Description 10/10/2023 [facility]ill [facility] [place] #[address] [place] [address] Ok Jorge MD #[address] [address] Medication Refill Social History Tobacco [...] Ynes Zuniga, RN - 10/11/2023 9:03 AM QM CONSULTANT Requested Prescriptions Pending Prescriptions Disp Refills ??? Insulin Pen Needle (BD Pen Needle Jackelin 2nd Gen) 32G X 4 MM Misc [Pharmacy Med Name: B-D JACKELIN 2ND GEN PEN NDL [id number]] 400 Each Sig: USE TO INJECT FOUR TIMES DAILY Next appt: 12/13/2023 CONSULTANT documented in this encounter Plan of Treatment Upcoming Encounters Date Type Department Care Team (Late st Contact Info) Description 07/17/2025 2:45 PM CDT Office Visit [facility] - Family Medicine [facility] #[address] [place] [address] Oswaldo Serrano MD #2 [facility] [address] [place] [address] 07/22/2025 2:30 PM CDT Office Visit [facility] - Endocrinology [facility] #2 [place] [address] Ok Jorge MD #2 [facility] [address] [place] [address] 07/30/2025 2:45 PM CDT Office Visit [facility] #[address] [place] [address] Orlin Urbina APRN, PROTOCOL MANAGER #[address] [place] [address] documented as of this encounter Visit Diagnoses Not on filedocumented in this encounter Additional Health Concerns Assessment Noted Time PHQ-9 Depression Total Score: 0 08/09/20 23 2:56 PM CDT documented as of this encounter Care Teams Forming Roll Operator Relationship Specialty Start Date End Date Oswaldo Serrano MD #[address] [address] PCP - General Family Medicine 05/19/17 Angel Crowe DPM #[address] [address] Consulting Physician Podiatry 06/16/17 Mora Fritz [place] Behavioral Health Navigator 06/15/18 Ok Jorge MD #[address] [address] Consulting Physician Endocrinology 05/12/22 Orlin Urbina APRN, PROTOCOL MANAGER #2 [place] [address] Nurse Practitioner Advanced Practice Nurse 11/09/22 documented as of this encounter
--- OUTSIDE RECORDS SUMMARY | 2025-06-08 01:07 | XMS_ITS | Encounter Summary ---
Author Organization [facility] Address [address] [place] [address] Phone Care Team Providers Care Lawn And Garden Technician Name Role Phone Oswaldo Serrano MD Primary Care Provider [phone] Angel Crowe DPM Unavailable [phone] Mora Fritz Unavailable Unavailable Ok Jorge MD Unavailable Orlin Urbina APRN, HOME HEALTH SPEECH THERAPIST Unavailable [phone] Reason for Visit * Reason Comments Medication Refill Encounter Details Date Type Department Care Team (Late st Contact Info) Description 04/15/2021 Refill [facility] [address] [place] [address] Oswaldo Serrano MD #[address] [address] Medication Refill Social History Tobacco [...] Description 07/17/2025 2:45 PM CDT Office Visit [facility] - Family Medicine [facility] #2 [place] [address] Oswaldo Serrano MD #2 [facility] [address] [place] [address] 07/22/2025 2:30 PM CDT Office Visit [facility] - Endocrinology [facility]3] #2 [place] [address] Ok Jorge MD #2 [facility] [address] [place] [address] 07/30/2025 2:45 PM CDT Office Visit [facility] #[address] [place] [phone] Orlin Urbina APRN, HOME HEALTH SPEECH THERAPIST #[address] [place] [address] documented as of this encounter Visit Diagnoses Not on filedocumented in this encounter Additional Health Concerns Infection Onset Date Last Indicated Resolved Time COVID - 19 07/28/2021 07/29/2021 08/17/2021 12:1 6 AM JAIL GUARD Assessment Noted Time PHQ-9 Depression Total Score: 2 07/18/20 20 4:26 PM CDT documented as of this encounter Care Teams Lawn And Garden Technician Relationship Specialty Start Date End Date Oswaldo Serrano MD #2 [facility] [address] [place] [address] PCP - General Family Medicine 05/19/17 Angel Crowe DPM #2 [facility] [address] [place] [address] Consulting Physician Podiatry 06/16/17 Mora Fritz [place] Behavioral Health Navigator 06/15/18 Ok Jorge MD #2 [facility] [address] [place] [address] Consulting Physician Endocrinology 05/12/22 Orlin Urbina APRN, HOME HEALTH SPEECH THERAPIST #[address] [place] [address] Nurse Practitioner Advanced Practice Nurse 11/09/22 documented as of this encounter
--- OUTSIDE RECORDS SUMMARY | 2025-06-08 01:07 | XMS_ITS | Encounter Summary ---
Author Organization [facility] Address [address] [place] [address] Phone Care Team Providers Care Packaging Tech Name Role Phone Oswaldo Serrano MD Primary Care Provider Angel Crowe DPM Unavailable [phone] Mora Fritz Unavailable Unavailable Ok Jorge MD Unavailable Orlin Urbina APRN, MEDIA ACCOUNT EXECUTIVE Unavailable [phone] Reason for Visit * Reason Comments Medication Refill Encounter Details Date Type Department Care Team (Late st Contact Info) Description 02/18/2021 Refill [facility] - Family Medicine - [place] #2 [place] [address] Connor Yuan APRN, MEDIA ACCOUNT EXECUTIVE #[address] [address] Medication Refill Social History Tobacco Use Types [...] Pending Prescriptions Disp Refills ergocalciferol (VITAMIN D) 45682 UNIT Capsule [Pharmacy Med Name: VITAMIN D [...] - Family Medicine - Connor Hutchinson APN, MEDIA ACCOUNT EXECUTIVE 2 months ago Essential hypertension [facility] - Family Medicine - Oswaldo Moreno MD 2 months ago Intractable cluster headache syndrome, unspecified chronicity pattern [facility] - Family Medicine - Oswaldo Moreno MD 2 months ago Subacute maxillary sinusitis [facility] Upcoming Appointments Future Appointments In 1 week Oswaldo Serrano MD [facility] In 2 weeks [facility]; [facility] Ultrasound, [facility] In 2 weeks Ok Jorge MD [facility] - Endocrinology [facility], [facility] TOLL LINE MECHANIC - Recent and Past Visits Recent Visits Date Type Provider Dept 02/16/21 Office Visit Oswaldo Serrano MD [facility] 01/14/21 Office Visit Connor Yuan APN, MEDIA ACCOUNT EXECUTIVE [facility] 12/19/20 Office Visit Oswaldo Serrano MD [facility] 12/18/20 Telemedicine Oswaldo Serrano MD [facility] 12/08/20 Telemedicine Oswaldo Serrano MD [facility] 11/07/20 Telemedicine Connor Yuan APN, MEDIA ACCOUNT EXECUTIVE [facility] 10/09/20 Office Visit Oswaldo Serrano MD [facility] [place] 09/16/20 Telemedicine Oswaldo Serrano MD [facility] 07/18/20 Office Visit Connor Yuan APN, YUDI [facility] 07/11/20 Telemedicine Connor Yuan APN, MEDIA ACCOUNT EXECUTIVE [facility] Showing recent visits within past 460 days with a meds authorizing provider and meeting all other requirements Future Appointments Date Type Provider Dept 02/27/21 Appointment Oswaldo Serarno MD [facility] Showing future appointments within next 90 days with a meds authorizing provider and meeting all other requirements documented in this encounter Plan of Treatment Upcoming Encounters Date Type Department Care Team (Late st Contact Info) Description 07/17/2025 2:45 PM CDT Office Visit [facility] Family [facility] #2 [place] [address] Oswaldo Serrano MD #[address] [address] 07/22/2025 2:30 PM CDT Office Visit [facility] - Endocrinology [facility] #2 [place] [address] Ok Jorge MD #[address] [address] 07/30/2025 2:45 PM CDT Office Visit [facility] UROLOGY #2 [place] [address] Orlin Urbina APRN, MEDIA ACCOUNT EXECUTIVE #2 [place] [address] documented as of this encounter Visit Diagnoses Diagnosis Vitamin D deficiency Unspecified vitamin D deficiency documented in this encounter Additional Health Concerns Infection Onset Date Last Indicated Resolved Time COVID - 19 07/28/2021 07/29/2021 08/17/2021 12:1 6 AM DATA MODELING ARCHITECT Assessment Noted Time PHQ-9 Depression Total Score: 2 07/18/20 20 4:26 PM CDT documented as of this encounter Care Teams Packaging Tech Relationship Specialty Start Date End Date Oswaldo Serrano MD #[address] [address] PCP - General Family Medicine 05/19/17 Angel Crowe DPM #[address] [address] Consulting Physician Podiatry 06/16/17 Mora Fritz Behavioral Health Navigator 06/15/18 Ok Jorge MD #[address] [address] Consulting Physician Endocrinology 05/12/22 Orlin Urbina APRN, MEDIA ACCOUNT EXECUTIVE #2 [place] [address] Nurse Practitioner Advanced Practice Nurse 11/09/22 documented as of this encounter
--- OUTSIDE RECORDS SUMMARY | 2025-06-08 01:07 | XMS_ITS | Encounter Summary ---
Author Organization [facility] Address [address] [place] [address] Phone Care Team Providers Care Pet Nutrition Specialist Name Role Phone Oswaldo Serrano MD Primary Care Provider [phone] Angel Crowe DPM Unavailable [phone] Mora Fritz Unavailable Unavailable Ok Jorge MD Unavailable Orlin Urbina APRN, PROFESSOR OF PSYCHOLOGY Unavailable [phone] Reason for Visit * Reason Comments Medication Refill Encounter Details Date Type Department Care Team (Late st Contact Info) Description 11/28/2020 Refill [facility] - Family Medicine - [place] [address]2 [place] [address] Connor Yuan APRN, PROFESSOR OF PSYCHOLOGY #[address] [address] Medication Refill Social History Tobacco Use Types [...] COVID-19? No / Unsure 11/28/2020 2:56 PM ROLL UP HELPER documented as of this encounter Plan of Treatment Upcoming Encounters Date Type Department Care Team (Late st Contact Info) Description 07/17/2025 2:45 PM CDT Office Visit [facility] Medical Group - Family Medicine [facility] #2 [place] [address] Oswaldo Serrano MD #[address] [address] 07/22/2025 2:30 PM CDT Office Visit [facility] Medical Group - Endocrinology [facility] #2 [place] [address] Ok Jorge MD #[address] [id number] 07/30/2025 2:45 PM CDT Office Visit [facility] PHYS[facility]IAN GROUP UROLOGY #2 [place] [address] Orlin Urbina APRN, PROFESSOR OF PSYCHOLOGY #2 [place] [address] documented as of this encounter Visit Diagnoses Diagnosis Vitamin D deficiency Unspecified vitamin D deficiency documented in this encounter Additional Health Concerns Infection Onset Date Last Indicated Resolved Time COVID - 19 07/28/2021 07/29/2021 08/17/2021 12:1 6 AM ROLL UP HELPER Assessment Noted Time PHQ-9 Depression Total Score: 2 07/18/20 20 4:26 PM CDT documented as of this encounter Care Teams Pet Nutrition Specialist Relationship Specialty Start Date End Date Oswaldo Serrano MD #2 [facility] [address] [place] [address] PCP - General Family Medicine 05/19/17 Angel Crowe DPM #2 [facility] [address] [place] [address] Consulting Physician Podiatry 06/16/17 Mora Fritz [place] Behavioral Health Navigator 06/15/18 Ok Jorge MD #2 [facility] [address] [place] [address] Consulting Physician Endocrinology 05/12/22 Orlin Urbina APRN, PROFESSOR OF PSYCHOLOGY #2 [place] [address] Nurse Practitioner Advanced Practice Nurse 11/09/22 documented as of this encounter
--- OUTSIDE RECORDS SUMMARY | 2025-06-08 01:07 | XMS_ITS | Encounter Summary ---
Author Organization [facility] Address [address] [place] [address] Phone Care Team Providers Care Buffer Chrome Name Role Phone Oswaldo Serrano MD Primary Care Provider [phone] Angel Crowe DPM Unavailable [phone] Mora Fritz Unavailable Unavailable Ok Jorge MD Unavailable Orlin Urbina APRN, WORKFORCE INVESTMENT ACT CAREER MANAGER Unavailable [phone] Reason for Visit * Reason Comments Medication Refill Encounter Details Date Type Department Care Team (Late st Contact Info) Description 11/26/2020 Refill [facility] - Family Medicine - [place] #2 [place] [address] Connor Yuan APRN, WORKFORCE INVESTMENT ACT CAREER MANAGER #[address] [address] Medication Refill Social History Tobacco Use Types [...] COVID-19? No / Unsure 11/28/2020 2:56 PM FERTILIZER APPLICATOR documented as of this encounter Miscellaneous Notes * Telephone Encounter - Connie Gamez RN - 11/26/2020 3:08 PM CST Sent to PCP ILIZER APPLICATOR * Telephone Encounter - Connie Gamez RN - 11/26/2020 3:07 PM CST Per nursing clinical judgement, provider to review and approve the medication(s) order(s) if appropriate. Last OV 11/07/20, F/U 12/08/20, Last Rx 09/11/20 4 capsules with 2 refills take 1 cap once a week Connie DASILVA Requested Prescriptions Pending Prescriptions Disp Refills ergocalciferol (VITAMIN D) 02536 UNIT Capsule [Pharmacy Med Name: VITAMIN D [...] Medicine - [facility] Yuan, Connor Santos APN, WORKFORCE INVESTMENT ACT CAREER MANAGER 1 month ago Flu-like symptoms [facility] - Family Medicine - Oswaldo Moreno MD 2 months ago Chronic joint pain [facility] Oswaldo Moreno MD 4 months ago Diabetic polyneuropathy associated with type 2 diabetes mellitus (HCC) [facility] - Connor Hutchinson APN, CNP 4 months ago Acute diarrhea [facility] Connor Hutchinson APN, WORKFORCE INVESTMENT ACT CAREER MANAGER Upcoming Appointments Future Appointments In 2 days Ok Jorge MD [facility] Endocrinology [facility] In 1 week Oswaldo Serrano MD [facility] [place] [place] [facility] SECONDS GRADER - Recent and Past Visits Recent Visits Date Type Provider Dept 11/07/20 Telemedicine Connor Yuan APN, YUDI [facility] 10/09/20 Office Visit Oswaldo Serrano MD [facility] 09/16/20 Telemedicine Oswaldo Serrano MD [facility] 07/18/20 Office Visit Connor Yuan APN, YUDI [facility] 07/11/20 Telemedicine Connor Yuan APN, YUDI [facility] [...] authorizing provider and meeting all other requirements ILIZER APPLICATOR documented in this encounter Plan of Treatment Upcoming Encounters Date Type Department Care Team (Late st Contact Info) Description 07/17/2025 2:45 PM CDT Office Visit [facility] - Family Medicine [facility] #2 [place] [address] Oswaldo Serrano MD #2 [facility] [address] [place] [address] 07/22/2025 2:30 PM CDT Office Visit [facility] - Endocrinology - [place] #2 [place] [address] Ok Jorge MD #[address] [address] 07/30/2025 2:45 PM CDT Office Visit [facility] PHYSICIAN GROUP UROLOGY #2 [place] [address] Orlin Urbina APRN, WORKFORCE INVESTMENT ACT CAREER MANAGER #2 [place] [address] documented as of this encounter Visit Diagnoses Diagnosis Vitamin D deficiency Unspecified vitamin D deficiency documented in this encounter Additional Health Concerns Infection Onset Date Last Indicated Resolved Time COVID - 19 07/28/2021 07/29/2021 08/17/2021 12:1 6 AM FERTILIZER APPLICATOR Assessment Noted Time PHQ-9 Depression Total Score: 2 07/18/20 20 4:26 PM CDT documented as of this encounter Care Teams Buffer Chrome Relationship Specialty Start Date End Date Oswaldo Serrano MD #[address] [address] PCP - General Family Medicine 05/19/17 Angel Crowe DPM #[address] [address] Consulting Physician Podiatry 06/16/17 Mora Fritz [place] Behavioral Health Navigator 06/15/18 Ok Jorge MD #[address] [address] Consulting Physician Endocrinology 05/12/22 Orlin Urbina APRN, WORKFORCE INVESTMENT ACT CAREER MANAGER #2 [place] [address] Nurse Practitioner Advanced Practice Nurse 11/09/22 documented as of this encounter
--- OUTSIDE RECORDS SUMMARY | 2025-06-08 01:07 | XMS_ITS | Encounter Summary ---
Author Organization [facility] Address [address] [place] [address] Phone Care Team Providers Care Order Checker Name Role Phone Oswaldo Serrano MD Primary Care Provider Angel Crowe DPM Unavailable [phone] Mora Fritz Unavailable Unavailable Ok Jorge MD Unavailable Orlin Urbina APRN, VICE PRESIDENT OF NURSING Unavailable [phone] Reason for Visit * Reason Comments Medication Refill Encounter Details Date Type Department Care Team (Late st Contact Info) Description 12/02/2020 Refill [facility] - Family Medicine - [place] #2 [place] [address] Connor Yuan APRN, VICE PRESIDENT OF NURSING #[address] [address] Medication Refill Social History Tobacco Use Types [...] COVID-19? No / Unsure 11/28/2020 2:56 PM COMBER OPERATOR documented as of this encounter Miscellaneous Notes * Telephone Encounter - Connie Gamez RN - 12/02/2020 11:24 AM CST Refused as patient needs lab work done. Connie RN ER OPERATOR documented in this encounter Plan of Treatment Upcoming Encounters Date Type Department Care Team (Late st Contact Info) Description 07/17/2025 2:45 PM CDT Office Visit [facility] Medical Group - Family Medicine [facility] #2 [place] [address] Oswaldo Serrano MD #2 [facility] [address] [place] [address] 07/22/2025 2:30 PM CDT Office Visit [facility] - Endocrinology - Pavilion #2 [place] [address] Ok Jorge MD #2 [facility] [address] [place] [address] 07/30/2025 2:45 PM CDT Office Visit [facility] PHYS[facility] GROUP UROLOGY #2 [place] [address] Orlin Urbina APRN, VICE PRESIDENT OF NURSING #2 [place] [address] documented as of this encounter Visit Diagnoses Diagnosis Vitamin D deficiency Unspecified vitamin D deficiency documented in this encounter Additional Health Concerns Infection Onset Date Last Indicated Resolved Time COVID - 19 07/28/2021 07/29/2021 08/17/2021 12:1 6 AM COMBER OPERATOR Assessment Noted Time PHQ-9 Depression Total Score: 2 07/18/20 4:26 PM CDT documented as of this encounter Care Teams Order Checker Relationship Specialty Start Date End Date Oswaldo Serrano MD #2 [facility] [address] [place] [address] PCP - General Family Medicine 05/19/17 Angel Crowe DPM #2 [facility] [address] [place] [address] Consulting Physician Podiatry 06/16/[address] Behavioral Health Navigator 06/15/18 Ok Jorge MD #2 [facility] [address] [place] [address] Consulting Physician Endocrinology 05/12/22 Orlin Urbina APRN, VICE PRESIDENT OF NURSING #2 [place] [address] Nurse Practitioner Advanced Practice Nurse 11/09/22 documented as of this encounter
--- OUTSIDE RECORDS SUMMARY | 2025-06-08 01:07 | XMS_ITS | Encounter Summary ---
Author Organization [facility] Address [address] [place] [address] Phone Care Team Providers Care Shirt Presser Name Role Phone Oswaldo Serrano MD Primary Care Provider [phone] Angel Crowe DPCiara Unavailable [phone] Mora Fritz Unavailable Unavailable Ok Jorge MD Unavailable Orlin Urbina APRN, LAUNDRY ROOM ATTENDANT Unavailable [phone] Reason for Visit * Reason Comments Medication Refill Encounter Details Date Type Department Care Team (Late st Contact Info) Description 12/11/2023 Refill [facility] - Family Medicine - [place] [address] [place] [address] Oswaldo Serrano MD #[address] [address] Medication Refill Social History Tobacco Use Types [...] Score - Questions 1-9 0 10/3 10/2022 [facility] [place] of Occupat ional Health - Occupational Stress [...] with SSRI for at least 6 months ENTER MOLD documented in this encounter Plan of Treatment Upcoming Encounters Date Type Department Care Team (Late st Contact Info) Description 07/17/2025 2:45 PM CDT Office Visit [facility] Medical Group - Family Medicine - [place] #2 [place] [address] Oswaldo Serrano MD #2 [facility] [address] [place] [address] 07/22/2025 2:30 PM CDT Office Visit [facility] Medical [facility] - Endocrinology - [place] #2 [place] [address] Ok Jorge MD #[address] [place] [address] 07/30/2025 2:45 PM CDT Office Visit [facility] PHYSICIAN [facility] UROLOGY #2 [place] [address] Orlin Urbina APRN, LAUNDRY ROOM ATTENDANT #2 [place] [address] documented as of this encounter Visit Diagnoses Not on filedocumented in this encounter Additional Health Concerns Assessment Noted Time PHQ-9 Depression Total Score: 0 08/09/20 23 2:56 PM CDT documented as of this encounter Care Teams Shirt Presser Relationship Specialty Start Date End Date Oswaldo Serrano MD #2 [facility] [address] [place] [address] PCP - General Family Medicine 05/19/17 Angel Crowe DPM #2 [facility] [address] [place] [address] Consulting Physician Podiatry 06/16/17 Mora Fritz [place] Behavioral Health Navigator 06/15/18 Ok Jorge MD #2 [facility] [address] [place] [address] Consulting Physician Endocrinology 05/12/22 Orlin Urbina, PROPERTY DEVELOPER, LAUNDRY ROOM ATTENDANT #2 [place] [address] Nurse Practitioner Advanced Practice Nurse 11/09/22 documented as of this encounter
--- OUTSIDE RECORDS SUMMARY | 2025-06-08 01:07 | XMS_ITS | Encounter Summary ---
Author Organization [facility] Address [address] [place] [address] Phone Care Team Providers Care Shelf Drier Operator Name Role Phone Oswaldo Serrano MD Primary Care Provider Angel Crowe DPM Unavailable [phone] Mora Fritz Unavailable Unavailable Ok Jorge MD Unavailable Orlin Urbina APRN, PLASTERING SUPERVISOR Unavailable [phone] Reason for Visit * Reason Comments Medication Refill Encounter Details Date Type Department Care Team (Late st Contact Info) Description 05/13/2021 Refill [facility] - Family Medicine - [place] #2 [place] [address] Ronda Pedraza APRN, YUDI #[address] [address] Medication Refill Social History Tobacco [...] Pending Prescriptions Disp Refills ergocalciferol (VITAMIN D) [address] UNIT Capsule [Pharmacy Med Name: VITAMIN D [...] ago B12 deficiency [facility] Family [facility] - Oswaldo Moreno, MD 3 months ago [facility]TI [facility], YUDI 4 months ago Essential hypertension [facility] Oswaldo Moreno MD 4 months ago Intractable cluster headache syndrome, unspecified chronicity pattern [facility] MD Upcoming Appointments Future Appointments Tomorrow Connor Yuan APN, YUDI [facility] Family [facility] In 1 month Ok Jorge MD [facility] MANAGER OF SOFTWARE - Recent and Past Visits Recent Visits Date Type Provider Dept 02/27/21 Office Visit Oswaldo Serrano MD [facility] 02/16/21 Office Visit Oswaldo Serrano MD [facility] [place] 01/14/21 Office Visit Connor Yuan APN, YUDI [facility] [place] 12/19/20 Office Visit Oswaldo Serrano MD [facility] 12/18/20 Telemedicine Oswaldo Serrano MD [facility] [place] 12/08/20 Telemedicine Oswaldo Serrano MD [facility] 11/07/20 Telemedicine Connor Yuan APN, YUDI [facility] 10/09/20 Office Visit Oswaldo Serrano MD [facility] 09/16/20 Telemedicine Oswaldo Serrano MD [facility] [place] 07/18/20 Office Visit Connor Yuan APN, YUDI [...] Office Visit [facility] Medical Group - Family Medicine - [place] #2 [place] [address] Oswaldo Serrano MD #2 [facility] [address] [place] [address] 07/22/2025 2:30 PM CDT Office Visit [facility] - Endocrinology - [place] #2 [place] [address] Ok Jorge MD #2 [facility] [address] [place] [address] 07/30/2025 2:45 PM CDT Office Visit [facility] PHYS[facility]IAN GROUP UROLOGY #2 [place] [address] Orlin Urbina, IT RISK ANALYST, PLASTERING SUPERVISOR #2 [place] [address] documented as of this encounter Visit Diagnoses Diagnosis Vitamin D deficiency Unspecified vitamin D deficiency documented in this encounter Additional Health Concerns Infection Onset Date Last Indicated Resolved Time COVID - 19 07/28/2021 07/29/2021 08/17/2021 12:1 6 AM INKER AND OPAQUER Assessment Noted Time PHQ-9 Depression Total Score: 2 07/18/20 4:26 PM CDT documented as of this encounter Care Teams Shelf Drier Operator Relationship Specialty Start Date End Date Oswaldo Serrano MD #[address] [address] PCP - General Family Medicine 05/19/17 Angel Crowe DPM #[address] [address] Consulting Physician Podiatry 06/16/17 Mora Fritz [place] Behavioral Health Navigator 06/15/18 Ok Jorge MD #[address] [address] Consulting Physician Endocrinology 05/12/22 Orlin Urbina APRN, PLASTERING SUPERVISOR #2 [place] [address] Nurse Practitioner Advanced Practice Nurse 11/09/22 documented as of this encounter
--- OUTSIDE RECORDS SUMMARY | 2025-06-08 01:07 | XMS_ITS | Encounter Summary ---
Author Organization [facility] Address [address] [place] [address] Phone Care Team Providers Care Positive Printer Operator Name Role Phone Oswaldo Serrano MD Primary Care Provider Angel Crowe DPCiara Unavailable [phone] Mora Fritz Unavailable Unavailable Ok Jorge MD Unavailable Orlin Urbina APRN, TRACTION POWER ENGINEER Unavailable [phone] Reason for Visit * Reason Comments Medication Refill Encounter Details Date Type Department Care Team (Late st Contact Info) Description 01/21/2021 Refill [facility] - Family Medicine - [place] [address] [place] [address] Oswaldo Serrano MD #[address] [address] Medication Refill Social History Tobacco Use Types [...] 1 week ago UTI symptoms [facility] Family Medicine - Connor Hutchinson APN, TRACTION POWER ENGINEER 1 month ago Essential hypertension [facility] - Oswadlo Moreno MD 1 month ago Intractable cluster headache syndrome, unspecified chronicity pattern [facility] - Oswaldo Moreno MD 1 month ago Subacute maxillary sinusitis [facility] - Oswaldo Moreno MD 2 months ago Chest [facility] - Connor Hutchinson APN, TRACTION POWER ENGINEER Upcoming Appointments Future Appointments In [address] [place], [facility] In 1 week Oswaldo Serrano MD [facility] Family Medicine - [facility] In 3 weeks Ok Jorge MD [facility] - Endocrinology [facility], [facility] SAFETY AND SKILL BASED PAY MANAGER - Recent and Past Visits Recent Visits Date Type Provider Dept 01/14/21 Office Visit Connor Yuan APN, TRACTION POWER ENGINEER [facility] 12/19/20 Office Visit Oswaldo Serrano MD [facility] 12/18/20 Telemedicine Oswaldo Serrano MD [facility] 12/08/20 Telemedicine Oswaldo Serrano MD [facility] 11/07/20 Telemedicine Connor Yuan APN, TRACTION POWER ENGINEER [facility] [place] 10/09/20 Office Visit Oswaldo Serrano MD [facility] 09/16/20 Telemedicine Oswaldo Serrano MD [facility] 07/18/20 Office Visit Connor Yuan APN, TRACTION POWER ENGINEER [facility] 07/11/20 Telemedicine Connor Yuan APN, TRACTION POWER ENGINEER [facility] 06/09/20 Office Visit Oswaldo Serrano [...] Outpatient Visits 1 week ago [facility] [place] [place] APN, TRACTION POWER ENGINEER 1 month ago Essential hypertension [facility] - [place] Venegas MD 1 month ago Intractable cluster headache syndrome, unspecified chronicity pattern [facility] [place] Serrano, Oswaldo A, MD 1 month ago Subacute maxillary sinusitis [facility] - Oswaldo Moreno MD 2 months ago Chest congestion [facility] Medical [facility] - Family Medicine - Connor Hutchinson APN, TRACTION POWER ENGINEER Upcoming Appointments Future Appointments In [address] [place], [facility] In 1 week Oswaldo Serrano MD [facility] weeks Ok Jorge MD [facility], [facility] SAFETY AND SKILL BASED PAY MANAGER - Recent and Past Visits Recent Visits Date Type Provider Dept 01/14/21 Office Visit Connor Yuan APN, YUDI [facility] 12/19/20 Office Visit Oswaldo Serrano MD [facility] 12/18/20 Telemedicine Oswaldo Serrano MD [facility] 12/08/20 Telemedicine Oswaldo Serrano MD [facility] 11/07/20 Telemedicine Connor Yuan APN, YUDI [facility] [place] 10/09/20 Office Visit Oswaldo Serrano MD [facility] 09/16/20 Telemedicine Oswaldo Serrano MD [facility] 07/18/20 Office Visit Connor Yuan APN, YUDI [facility] [place] 07/11/20 Telemedicine Connor Yuan APN, YUDI [facility] [...] Description 07/17/2025 2:45 PM CDT Office Visit [facility] Medical Group - Family Medicine - [place] #2 [facility] [address] Oswaldo Serrano MD #[address] [place] [address] 07/22/2025 2:30 PM CDT Office Visit [facility] Medical [facility] - Endocrinology - [place] #2 [place] [address] Ok Jorge MD #[address] [place] [address] 07/30/2025 2:45 PM CDT Office Visit [facility] UROLOGY #2 [place] [address] Orlin Urbina, SPIRITUAL MINISTER, TRACTION POWER ENGINEER #2 [facility] [place] [address] documented as of this encounter Visit Diagnoses Not on filedocumented in this encounter Additional Health Concerns Infection Onset Date Last Indicated Resolved Time COVID - 19 07/28/2021 07/29/2021 08/17/2021 12:1 6 AM INSERT CUTTER Assessment Noted Time PHQ-9 Depression Total Score: 2 07/18/20 20 4:26 PM CDT documented as of this encounter Care Teams Positive Printer Operator Relationship Specialty Start Date End Date Oswaldo Serrano MD #[address] [place] [address] PCP - General Family Medicine 05/19/17 Angel Crowe DPM #[address] [place] [address] Consulting Physician Podiatry 06/16/17 Mora Fritz [place] Behavioral Health Navigator 06/15/18 Ok Jorge MD #[address] [address] Consulting Physician Endocrinology 05/12/22 Orlin Urbina APRN, TRACTION POWER ENGINEER #2 [place] [address] Nurse Practitioner Advanced Practice Nurse 11/09/22 documented as of this encounter
--- OUTSIDE RECORDS SUMMARY | 2025-06-08 01:07 | XMS_ITS | Encounter Summary ---
Author Organization [facility] Address [address] [place] [address] Phone Care Team Providers Care Surveillance Sensor Operator Name Role Phone Oswaldo Serrano MD Primary Care Provider [phone] Angel Crowe DPCiara Unavailable [phone] Mora Fritz Unavailable Unavailable Ok Jorge MD Unavailable Orlin Urbina APRN, ENVIRONMENTAL HEALTH AIDE Unavailable [phone] Reason for Visit * Reason Comments Medication Refill Encounter Details Date Type Department Care Team (Late st Contact Info) Description 06/09/2023 Refill [facility] - [place] [address] [place] [address] Oswaldo Serrano MD #[address] [address] Medication Refill Social History Tobacco Use Types [...] Date Type Provider Dept 08/09/23 Appointment Oswaldo Serarno MD [facility] Showing future appointments within [...] Description 07/17/2025 2:45 PM CDT Office Visit [facility] Medical [facility] - Family Medicine - [place] #2 [place] [address] Oswaldo Serrano MD #[address] [address] 07/22/2025 2:30 PM CDT Office Visit [facility] - Endocrinology - [place] #2 [place] [address] Ok Jorge MD #[address] [place] [address] 07/30/2025 2:45 PM CDT Office Visit [facility] PH[facility]IAN [facility] UROLOGY #2 [place] [address] Orlin Urbina, STITCHING MACHINE SETTER, ENVIRONMENTAL HEALTH AIDE #2 [place] [address] documented as of this encounter Visit Diagnoses Not on filedocumented in this encounter Additional Health Concerns Assessment Noted Time PHQ-9 Depression Total Score: 0 10/14/19 23 11:00 AM WRAPPING MACHINE HELPER documented as of this encounter Care Teams Surveillance Sensor Operator Relationship Specialty Start Date End Date Oswaldo Serrano MD #[address] [address] PCP - General Family Medicine 05/19/17 Angel Crowe DPM #[address] [place] [address] Consulting Physician Podiatry 06/16/17 Mora Fritz [place] Behavioral Health Navigator 06/15/18 Ok Jorge MD [facility] [address] [phone] Consulting Physician Endocrinology 05/12/22 Orlin Urbina APRN, YUDI #2 [place] [address] Nurse Practitioner Advanced Practice Nurse 11/09/22 documented as of this encounter
--- OUTSIDE RECORDS SUMMARY | 2025-06-08 01:07 | XMS_ITS | Encounter Summary ---
Author Organization [facility] Address [address] [place] [address] Phone Care Team Providers Care Marketing Technology Coordinator Name Role Phone Oswaldo Serrano MD Primary Care Provider [phone] Angel Crowe DPCiara Unavailable [phone] Mora Fritz Unavailable Unavailable Ok Jorge MD Unavailable Orlin Urbina APRN, LOAN AND CREDIT MANAGER Unavailable [phone] Reason for Visit * Reason Comments Medication Refill Encounter Details Date Type Department Care Team (Late st Contact Info) Description 02/02/2024 Refill [facility] - [facility] - [place] [address] [place] [address] Oswlado Serrano MD #[address] [address] Medication Refill Social History Tobacco Use Types Packs/Day Years Used Date Smoking Tobacco: Never Smokeless Tobacco: Never Alcohol Use Standard Drinks/Week Comments No 0 (1 standard drink = 0.6 oz pur e alcohol) [facility] Utilities Answer Date Recorded In the past [...] any clubs o r organizations such as episcopalian groups, unions, fraternal or athletic groups, or [...] Score - Questions 1-9 0 10/3 10/2022 [facility] [place] of Occupat ional Health - Occupational Stress [...] 07/17/2025 2:45 PM CDT Office Visit [facility] Medical [facility] - Family Medicine - [place] #2 [place] [address] Oswaldo Serrano MD #[address] [address] 07/22/2025 2:30 PM CDT Office Visit [facility] Medical [facility] - Endocrinology - [place] #2 [place] [address] Ok Jorge MD #[address] [phone] 07/30/2025 2:45 PM CDT Office Visit [facility] PHYSICIAN [facility] UROLOGY #2 [place] [address] Orlin Urbina APRN, LOAN AND CREDIT MANAGER #2 [place] [address] documented as of this encounter Visit Diagnoses Not on filedocumented in this encounter Additional Health Concerns Assessment Noted Time PHQ-9 Depression Total Score: 0 08/09/20 23 2:56 PM CDT documented as of this encounter Care Teams Marketing Technology Coordinator Relationship Specialty Start Date End Date Oswaldo Serrano MD #2 [facility] [address] [place] [address] PCP - General Family Medicine 05/19/17 Angel Crowe DPM #2 [facility] [address] [place] [address] Consulting Physician Podiatry 06/16/17 Mora Fritz [place] Behavioral Health Navigator 06/15/18 Ok Jorge MD #[address] [address] Consulting Physician Endocrinology 05/12/22 Orlin Urbina APRN, LOAN AND CREDIT MANAGER #2 [place] [address] Nurse Practitioner Advanced Practice Nurse 11/09/22 documented as of this encounter
--- OUTSIDE RECORDS SUMMARY | 2025-06-08 01:07 | XMS_ITS | Encounter Summary ---
Author Organization [facility] Address [address] [place] [address] Phone Care Team Providers Care Exercise Rider Name Role Phone Oswaldo Serrano MD Primary Care Provider [phone] Angel Crowe DPM Unavailable [phone] Mora Fritz Unavailable Unavailable Ok Jorge MD Unavailable Orlin Urbina APRN, DOUBLE CUT OFF SAW OPERATOR Unavailable [phone] Reason for Visit * Reason Comments Medication Refill Encounter Details Date Type Department Care Team (Late st Contact Info) Description 11/27/2022 Refill [facility] [place] [facility] UROLOGY #2 [place] [address] Orlin Urbina APRN, DOUBLE CUT OFF SAW OPERATOR #2 [place] [address] Medication Refill Social History Tobacco Use Types [...] Coronavirus/COVID-19? No / Unsure 11/25/2022 12:13 PM LIME VAT TENDER documented as of this encounter Plan of Treatment Upcoming Encounters Date Type Department Care Team (Late st Contact Info) Description 07/17/2025 2:45 PM CDT Office Visit [facility] Medical Group - Family Medicine [facility] #2 [place] [address] Oswaldo Serrano MD #[address] [address] 07/22/2025 2:30 PM CDT Office Visit [facility] Medical [facility] - Endocrinology [facility] #2 [place] [address] Ok Jorge MD #2 [facility] [address] [place] [address] 07/30/2025 2:45 PM CDT Office Visit [facility] UROLOGY #2 [place] [address] Orlin Urbina APRN, DOUBLE CUT OFF SAW OPERATOR #2 [place] [address] documented as of this encounter Visit Diagnoses Not on filedocumented in this encounter Additional Health Concerns Assessment Noted Time PHQ-9 Depression Total Score: 0 10/14/19 23 11:00 AM LIME VAT TENDER documented as of this encounter Care Teams Exercise Rider Relationship Specialty Start Date End Date Oswaldo Serrano MD #2 [facility] [address] [place] [address] PCP - General Family Medicine 05/19/17 Angel Crowe DPM #2 [facility] [address] [place] [address] Consulting Physician Podiatry 06/16/17 Mora Fritz Behavioral Health Navigator 06/15/18 Ok Jorge MD #2 [facility] [address] [place] [address] Consulting Physician Endocrinology 05/12/22 Orlin Urbina APRN, DOUBLE CUT OFF SAW OPERATOR #2 [place] [address] Nurse Practitioner Advanced Practice Nurse 11/09/22 documented as of this encounter
--- OUTSIDE RECORDS SUMMARY | 2025-06-08 01:07 | XMS_ITS | Encounter Summary ---
Author Organization [facility] Address [address] [place] [address] Phone Care Team Providers Care Crystal Flat Grinder Name Role Phone Oswaldo Serrano MD Primary Care Provider Angel Crowe DPCiara Unavailable [phone] Mora Fritz Unavailable Unavailable Ok Jorge MD Unavailable Orlin Urbina APRN, CONSTRUCTION SCHEDULER Unavailable [phone] Reason for Visit * Reason Comments Medication Refill Encounter Details Date Type Department Care Team (Late st Contact Info) Description 05/27/2024 Refill [facility] - Family Medicine - [place] [address] [place] [address] Oswaldo Serrano MD #[address] [address] Medication Refill Social History Tobacco Use Types Packs/Day Years Used Date Smoking Tobacco: Never Smokeless Tobacco: Never Alcohol Use Standard Drinks/Week Comments No 0 (1 standard drink = 0.6 oz pur e alcohol) [facility] Utilities Answer Date Recorded In [...] attend chur ch or evangelical services? Never 11/09/2023 Do you belong to any clubs o r organizations such as scientologist groups, unions, fraternal or athletic groups, or [...] Score - Questions 1-9 0 10/3 10/2022 [facility] [place] of Occupat ional Health - Occupational Stress [...] [facility] - [facility] Medicine - [place] #[address] [place] [address] Oswaldo Serrano MD #[address] [address] 07/22/2025 2:30 PM CDT Office Visit [facility] - Endocrinology - [place] #[address] [place] [address] Ok Jorge MD #[address] [address] 07/30/2025 2:45 PM CDT Office [facility] UROLOGY #[address] [place] [address] Orlin Urbina APRN, CONSTRUCTION SCHEDULER #[facility] [place] [address] documented as of this encounter Visit Diagnoses Not on filedocumented in this encounter Additional Health Concerns Assessment Noted Time PHQ-9 Depression Total Score: 0 08/09/20 23 2:56 PM CDT documented as of this encounter Care Teams Crystal Flat Grinder Relationship Specialty Start Date End Date Oswaldo Serrano MD #[address] [address] PCP - General Family Medicine 05/19/17 Angel Crowe DPM #[address] [address] Consulting Physician Podiatry 06/16/17 Mora Fritz [place] Behavioral Health Navigator 06/15/18 Ok Jorge MD #[address] [address] Consulting Physician Endocrinology 05/12/22 Orlin Urbina APRN, CONSTRUCTION SCHEDULER #2 [place] [address] Nurse Practitioner Advanced Practice Nurse 11/09/22 documented as of this encounter
--- OUTSIDE RECORDS SUMMARY | 2025-06-08 01:07 | XMS_ITS | Encounter Summary ---
Author Organization [facility] Address [address] [place] [address] Phone Care Team Providers Care Industrial Engineering Name Role Phone Oswaldo Serrano MD Primary Care Provider [phone] Angel Crowe DPCiara Unavailable [phone] Mora Fritz Unavailable Unavailable Ok Jorge MD Unavailable Orlin Urbina APRN, SHOVELER Unavailable [phone] Reason for Visit * Reason Comments Medication Refill Encounter Details Date Type Department Care Team (Late st Contact Info) Description 07/15/2023 Refill [facility] - Family Medicine - [place] [address] [place] [address] Oswaldo Serrano MD #[address] [address] Medication Refill Social History Tobacco Use Types [...] [place] 08/26/22 Office Visit Connor Yuan APRN, SHOVELER [facility] Showing recent visits within past 365 [...] Description 07/17/2025 2:45 PM CDT Office Visit [facility] Medical Group - Family Medicine [facility] #2 [facility] [place] [address] Oswaldo Serrano MD #2 [facility] [address] [place] [address] 07/22/2025 2:30 PM CDT Office Visit [facility] Endocrinology [facility] #2 [place] [address] Ok Jorge MD #[address] [place] [address] 07/30/2025 2:45 PM CDT Office Visit [facility]Y #2 [place] [address] Orlin Urbina APRN, YUDI #2 [place] [address] documented as of this encounter Visit Diagnoses Diagnosis Chronic congestive heart failure, unspecified heart failure type (HCC) documented in this encounter Additional Health Concerns Assessment Noted Time PHQ-9 Depression Total Score: 0 10/14/19 23 11:00 AM 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 documented as of this encounter Care Teams Industrial Engineering Relationship Specialty Start Date End Date Oswaldo Serrano MD #[address] [address] PCP - General Family Medicine 05/19/17 Angel Crowe DPM #2 [facility] [address] [place] [address] Consulting Physician Podiatry 06/16/17 Mora Fritz Behavioral Health Navigator 06/15/18 Ok Jorge MD #2 [facility] [address] [place] [address] Consulting Physician Endocrinology 05/12/22 Orlin Urbina APRN, SHOVELER #2 [place] [address] Nurse Practitioner Advanced Practice Nurse 11/09/22 documented as of this encounter
[2025-06-08] MEDS: FAMOTIDINE 20 MG/2 ML VIAL IV PUSH (01:56)
[2025-06-08] MEDS: ONDANSETRON INJ 4 MG/2 ML VIAL IV PUSH (01:56)
[2025-06-08 01:59] LABS: Alanine Aminotransferase 34 U/L (6-35); Albumin Level 3.5 g/dL (3.5-5.1); Alkaline Phosphatase 378 U/L (38-126); Anion Gap 10 mmol/L (4-12); Aspartate Amino Transferase 70 U/L (14-36); Bilirubin,Total 2.8 mg/dL (0.2-1.3); Blood Urea Nitrogen 22 mg/dL (7-17); Calcium 8.8 mg/dL (8.4-10.2); Carbon Dioxide 22 mmol/L (22-30); Chloride 100 mmol/L (98-107); Estimated CRCL calculation 71 ml/min; Estimated Glomerular Filt Rate > 60; Glucose 163 mg/dL (65-110); Potassium 4.9 mmol/L (3.4-5.0); Sodium 132 mmol/L (137-145); Total Protein 7.5 g/dL (6.3-8.2)
[2025-06-08] MEDS: HALOPERIDOL LACTATE 5 MG/ML VIAL IM (02:42)
--- NOTE | 2025-06-08 03:16 | PC.NURSE ---
Patients family members left but left phone numbers to call for any information. SANA Dobbs, leaves cell number of [phone] and to call 1st, and home phone of [phone]. Another family member Peg leaves cell number of [phone].
--- NOTE | 2025-06-08 03:58 | PC.NURSE ---
This fiction and nonfiction writer prose has remained at pt bedside continuous since 45 this morning. She remains severely aggitated and shows aggression toward herself and staff in spite of medication administration. Pt has made continual threats to kill her sisters, this fiction and nonfiction writer prose and herself. She has ripped off her heart monitor leads, spo2 sensor, BP cuff. Has attempted to pull our her iv to her R hand multiple times and pulled out some of her own hair. At times pt was so inconsolable and crying so hard she began choking on her own sputum. RN has suctioned multiple times. Secretions have been reduced with zofran and pepcid and benadryl. Pt has tried to kick herself out of the bed at times as well. This fiction and nonfiction writer prose has remained at bedside for safety. Spo2 at this hour is 99% RA. Resp 18. Unable to obtain accurate BP or pulse. Any attempts are met with physical aggression and refusal.
--- NOTE | 2025-06-08 04:06 | PC.NURSE ---
Attempted to call report twice, was unable to give report, was told not sure who is getting that patient and not sure but we will call back. ER salesperson books notified, and instructed to take patient upstairs at this time.
--- NOTE | 2025-06-08 04:07 | PC.NURSE ---
Sisters took home pt reading glasses as she kept throwing them across the room. Pt has no teeth. No dentures on arrival. Cell phone, forest fire specialist supervisor, purse and nightgown in belongings bag.
--- NOTE | 2025-06-08 04:49 | ADMGEN ---
This patient, Loretta Penn, was admitted to 2 Medical Room 255-. Patient/family oriented to hospital policies and general routines including ID bracelet, bed and alarms, visiting hours, pain management, procedures, bathroom and other care routines, personal items, smoking policy, room service/diet, and visiting hours. Information on how to activate the Rapid Response Team has been discussed. Patient/Family are encouraged to report perceived risks to care and to ask questions if they do not understand what they are told or what they should do.
--- NOTE | 2025-06-08 05:53 | PC.NURSE ---
Upon arrival to the floor this RN saw patient in Trendelenburg on stretcher. Pt was agitated, and inconsolable. Pt agitated cursing at staff. Pt attempted to try and kick, hit, and grab staff. Pt cursing at staff and making verbal threats.
--- NOTE | 2025-06-08 07:02 | PM.IMHP ---
H&P: HPI History of Present Illness Date/Time: 06/08/25 07:02 Chief Complaint: Placement, insulin dosing Narrative: Loretta Penn is a 64-year-old female with a past medical history of Afib (on Xarelto), MSSA bacteremia, intellectual disability, and endocarditis of tricuspid valve in 06/02, HTN, hypothyroidism, CHF, GERD, and diabetes who presents to the hospital for placement and issues with insulin dosages. Patient arrived to the emergency department from a half-way after the patient's family confronted the facility regarding incorrect insulin dosing and the patient was reportedly told to leave and not come back. She was recently discharged to the nursing facility after an extended stay at [facility] for an episode of congestive heart failure. Given the holiday weekend, the patient's family has been unable to find placement to another facility. They were unable to take care of the patient at home. Upon examination, patient denies any chest pain, shortness a breath, nausea/vomiting, headache/dizziness, abdominal pain or any urinary/bowel changes. Patient is rather difficult to awake and is oriented to name and date of but not location or time. No neurological deficits appreciated exam, however patient's baseline mentation status is unknown. Will attempt to contact family in order to establish baseline. ED workup: 100/80, 98 HR, 98% on RA, 97.4F, 18 RR WBC 4.1, Hgb 14.2, Hct 43.9, Na 132, K 4.9, BUN 22, Cr 0.83, 163 Glucose, 264 plt, Total Bilirubin 2.8, AST 70, ALT 34, Alk Phos 378 Glucose consistently in the 100s TSH 7.00 EKG, Head CT pending Review of Systems Review of Systems: All systems reviewed & are unremarkable except as noted in HPI and below PMFSH Past Medical History Medical History Thrombocytopenia Bacteremia Overactive bladder GERD (gastroesophageal reflux disease) Atrial fibrillation Pacemaker Hypothyroidism HTN (hypertension) Diabetes Surgical History Surgical History AICD (automatic cardioverter/defibrillator) present Family History Family History Mother Diabetes mellitus Epilepsy CAD (coronary artery disease) Stented coronary artery Dementia COVID Father Diabetes mellitus Sibling Hypertension Sibling Murder of sister Sibling Unknown family medical history Social History Social History Years smoked: 3 Smoking status: Never smoker Alcohol intake: never Substance use: unknown Substance use type: does not use Do You Feel Safe in your Home?: Yes Lack of Transportation: No Lack of Food: Never True Current Housing: I Have Housing Concerned About Future Housing: No Difficulty Paying Gas/Electric Bills: No Difficulty Paying for Meds: No Currently Unemployed: No Education: Grade School Difficulty w/ Childcare or Family Care: No Gender identity (if verbalized by the patient): Female Spiritual care concerns: No Meds Home Medications and Allergies Home Medications ?Medication ?Instructions ?Recorded ?Confirmed ?Type cholecalciferol (vitamin D3) 125 5,000 unit PO DAILY 02/23/25 06/08/25 History mcg (5,000 unit) tablet acetaminophen 500 mg capsule 500 mg PO Q6H PRN pain (scale 03/14/25 06/08/25 Rx score 1-3) or fever. #90 caps albuterol sulfate 90 mcg/actuation 2 puff inhalation Q6H PRN 03/14/25 06/08/25 Rx aerosol inhaler shortness of breath or wheezing #2 grams cefadroxil 500 mg capsule 500 mg PO Q12H #60 caps 03/14/25 06/08/25 Rx docusate sodium 100 mg capsule 100 mg PO BID #60 caps 03/14/25 06/08/25 Rx empagliflozin 10 mg tablet 10 mg PO DAILY #30 tabs 03/14/25 06/08/25 Rx (Jardiance) escitalopram oxalate 10 mg tablet 10 mg PO DAILY #30 tabs 03/14/25 06/08/25 Rx ferrous sulfate 325 mg (65 mg 325 mg PO DAILY #30 tabs 03/14/25 06/08/25 Rx iron) tablet (FeroSul) fluticasone propionate 50 1 spray intranasal DAILY PRN 03/14/25 06/08/25 Rx mcg/actuation nasal allergy symptoms/Rhinitis. #10 mL spray,suspension (Flonase Allergy Relief) hydrocortisone 1 % topical cream 1 applic topical Q12HR PRN Itching 03/14/25 06/08/25 Rx #10 grams hydroxyzine HCl 25 mg tablet 25 mg PO Q4H PRN itching or 03/14/25 06/08/25 Rx anxiety. #30 tabs insulin glargine 100 unit/mL 15 unit (0.15 mL) subcut QHS #10 mL 03/14/25 06/08/25 Rx subcutaneous solution (Lantus U-100 Insulin) levothyroxine 75 mcg tablet 75 mcg PO QAM #30 tabs 03/14/25 06/08/25 Rx lidocaine 4 % topical patch 1 patch topical DAILY PRN back 03/14/25 06/08/25 Rx (Aspercreme (lidocaine)) pain. #30 ea magnesium oxide 400 mg (241.3 mg 400 mg PO DAILY #30 tabs 03/14/25 06/08/25 Rx magnesium) tablet nortriptyline 10 mg capsule 10 mg PO HS #30 caps 03/14/25 06/08/25 Rx omeprazole 20 mg capsule,delayed 20 mg PO DAILY #30 caps 03/14/25 06/08/25 Rx release polyethylene glycol 3350 17 gram 17 g PO DAILY PRN constipation #30 03/14/25 06/08/25 Rx oral powder packet (Miralax) ea sacubitril 24 mg-valsartan 26 mg 0.5 tablet PO BID #60 tabs 03/14/25 06/08/25 Rx tablet (Entresto) spironolactone 25 mg tablet 25 mg PO DAILY #30 tabs 03/14/25 06/08/25 Rx apixaban 5 mg tablet (Eliquis) 5 mg PO BID 06/08/25 06/08/25 History ascorbic acid (vitamin C) 500 mg 500 mg PO DAILY 06/08/25 06/08/25 History tablet (Vitamin C) buspirone 10 mg tablet 10 mg PO BID 06/08/25 06/08/25 History insulin aspart U-100 100 unit/mL 15 unit subcut TID 06/08/25 06/08/25 History (3 mL) subcutaneous pen metoprolol succinate 50 mg 25 mg PO DAILY 06/08/25 06/08/25 History tablet,extended release 24 hr vibegron 75 mg tablet (Gemtesa) 75 mg PO DAILY 06/08/25 06/08/25 History Allergies Allergy/AdvReac Type Severity Reaction Status Date / Time Sulfa (Sulfonamide Allergy Mild RASH Verified 06/08/25 03:12 Antibiotics) certain metals Allergy Unknown Unknown Uncoded 03/05/25 23:36 Vital Signs Vital Signs - 24 hr 06/07/25 19:09 06/07/25 22:35 06/08/25 00:29 Temperature 97.4 F L Pulse Rate 80 77 Respiratory Rate 18 18 18 Blood Pressure 95/51 L 98/48 L Pulse Oximetry 98 100 98 Oxygen Delivery 06/08/25 00:30 06/08/25 00:45 06/08/25 00:46 Temperature Pulse Rate 91 96 Respiratory Rate 14 16 17 Blood Pressure Pulse Oximetry 98 97 Oxygen Delivery 06/08/25 00:46 06/08/25 01:00 06/08/25 01:15 Temperature Pulse Rate 88 92 99 Respiratory Rate 21 H 25 H 19 Blood Pressure 72/54 L 86/66 L Pulse Oximetry 98 98 97 Oxygen Delivery Room Air 06/08/25 01:24 06/08/25 01:30 06/08/25 01:31 Temperature 97.6 F Pulse Rate 97 98 101 H Respiratory Rate 47 H 21 H 18 Blood Pressure 86/66 L 100/80 Pulse Oximetry 97 97 96 Oxygen Delivery 06/08/25 01:45 06/08/25 04:40 Temperature 97.3 F L Pulse Rate 98 100 Respiratory Rate 20 16 Blood Pressure Pulse Oximetry 100 99 Oxygen Delivery Exam Narrative: Gen - chronically ill appearing female in no acute respiratory distress HEENT - normocephalic. Atraumatic. Pupils equal round and reactive. Extraocular motions intact. Sclera clear and anicteric. Oropharynx was clear. Moist mucous membranes. No facial asymmetry. Neck - neck was supple. No dominant adenopathy, thyromegaly or masses. Chest - lungs are clear to auscultation bilaterally. No wheezes or crackles. CV - heart was regular rate and rhythm. S1-S2. No murmurs gallops or rubs. Abd - abdomen was soft. Nontender. Nondistended. Positive bowel sounds. Ext - no clubbing, cyanosis or edema. 2+ DP pulses bilaterally. Neuro - patient is alert and oriented x1. Strength is 5/5 in both upper and lower extremities. Psych - normal mood and affect. Patient is pleasant and cooperative. Skin - warm and dry. No rashes noted. H&P: Results Labs Labs: Short CBC 06/08/25 Range/Units 00:51 WBC 4.1 L (4.5-10.0) K/mm3 Hgb 14.2 (12.0-15.0) g/dL Hct 43.9 (37.0-47.0) % Plt Count 264 (150-375) k/mm3 BMP 06/08/25 00:51 Sodium 132 L Potassium 4.9 Chloride 100 Carbon Dioxide 22 BUN 22 H D Creatinine 0.83 Glucose 163 H Calcium 8.8 Liver Function 06/08/25 Range/Units 00:51 Total Bilirubin 2.8 H (0.2-1.3) mg/dL AST 70 H (14-36) U/L ALT 34 (6-35) U/L Alkaline Phosphatase 378 H (38-126) U/L Albumin 3.5 (3.5-5.1) g/dL Urine 06/08/25 Range/Units 00:46 Urine Color Dark yellow (Yellow) Urine Appearance Clear (Clear) Urine pH 5.0 (5.0-9.0) Ur Specific [place] 1.020 (1.001-1.035) Urine Protein Negative (Negative) mg/dL Urine Glucose (UA) 2+ H (Negative) mg/dL Assessment and Plan Assessment and plan (1) Debility: Code(s): R53.81 - Other malaise Status: Acute Assessment and Plan: Arrived to hospital after being removed from nursing facility and instructed not to come back There was contention with family/facility regarding correct dosing of insulin - Glucose levels have been in the 100s throughout visit Patient's family brought her to hospital for placement - will contact them regarding baseline mentation status CMP/CBC unremarkable, Ammonia wnl Afebrile, no leukocytosis ABG, Head CT, EKG pending Consider Neuro/psych consult if workup negative and can confirm with family that this is not patient's baseline mentation status Working with CC/social regarding placement PT/OT gitaals (2) Generalized weakness: Code(s): R53.1 - Weakness Status: Acute Assessment and Plan: See above (3) Type 2 diabetes mellitus with hyperglycemia: Code(s): E11.65 - Type 2 diabetes mellitus with hyperglycemia Status: Acute Assessment and Plan: Hypoglycemia protocol POC blood glucose ACHS Home medication - Jardiance Correct regimen ordered - Med dose TIDWM and HS (15 units) A1C pending (4) PAF (paroxysmal atrial fibrillation): Code(s): I48.0 - Paroxysmal atrial fibrillation Status: Acute Assessment and Plan: Keep serum potassium >4 and keep magnesium >2 Chronic, on eliquis, metoprolol Continue at home medications (5) HTN (hypertension): Code(s): I10 - Essential (primary) hypertension Status: Chronic Assessment and Plan: Patient's blood pressure was reviewed on 06/08 Blood pressure remains well controlled. Will continue current medications. 116/ (6) Right-sided heart failure: Code(s): I50.810 - Right heart failure, unspecified Status: Acute Assessment and Plan: Monitor vital signs, I&Os, BUN/creatinine, daily weights, neuro status and patient is a fall risk Monitor serum electrolytes, Keep serum Potassium>4 and serum Magnesium>2 and CBC Continue at home medications - Entresto, Jardiance No evidence of fluid overload on exam No SOB, hypoxia Plan Code status: Full code per patient DVT prophylaxis: Eliquis, scd Stress ulcer prophylaxis: Not indicated PT/OT notes: PT/OT evaluation Quality VTE Prophylaxis VTE prophylaxis: mechanical ordered and pharmacologic ordered
[2025-06-08] MEDS: ESCITALOPRAM OXALATE 10 MG TABLET PO (10:41)
[2025-06-08] MEDS: LEVOTHYROXINE SODIUM 75 MCG TABLET PO (10:41)
[2025-06-08] MEDS: SPIRONOLACTONE 25 MG TABLET PO (10:41)
[2025-06-08] MEDS: ASCORBIC ACID 500 MG TABLET PO (10:41)
[2025-06-08] MEDS: MAGNESIUM OXIDE 400 MG TABLET PO (10:43)
[2025-06-08] MEDS: METOPROLOL SUCCINATE EXT REL 25 MG TABCR PO (10:43)
[2025-06-08] MEDS: APIXABAN 5 MG TABLET PO ×2 (10:44→20:49)
[2025-06-08] MEDS: EMPAGLIFLOZIN 10 MG TABLET PO (10:44)
[2025-06-08] MEDS: DOCUSATE SODIUM 100 MG CAPSULE PO ×2 (10:44→17:10)
[2025-06-08] MEDS: SACUBITRIL/VALSARTAN 12-13 MG TABLET 1 TAB PO ×2 (10:54→20:49)
[2025-06-08] MEDS: PANTOPRAZOLE 40 MG TABLET PO (10:54)
[2025-06-08] MEDS: CHOLECALCIFEROL (VITAMIN D3) 125 MCG (5,000 UNITS) TABLET PO (11:01)
[2025-06-08 11:19] LABS: Ammonia 19 umol/L (9-30)
--- NOTE | 2025-06-08 11:37 | PCRCNOTE ---
ABG'S attempted from RT. Pt pulled away when therapist had needle in wrist saying no! no! no! Pt refused. RN aware.
[2025-06-08 12:02] LABS: Thyroid Stimulating Hormone Reflex 7.000 uIU/mL (0.465-4.68)
--- NOTE | 2025-06-08 12:46 | ECG_ITS ---
Test Date: 2025-06-08 13:32:19 Measurements Intervals [place] Rate: 85 P: 0 SC: 0 QRS: 119 QRSD: 153 T: 97 QT: 441 QTc: 525 Interpretive Statements ATRIAL FIBRILLATION LEFT BUNDLE BRANCH BLOCK BASELINE ARTIFACT- II, III, AVR, AVL, AVF, V1, V6 ABNORMAL ECG Compared to ECG 02/21/2025 20:43:55 NO SIGNIFICANT CHANGE Electronically Signed On 06-08-2025 15:37:35 CDT by Grabiel Caballero D.O.
[2025-06-08 13:01] LABS: Magnesium 2.0 mg/dL (1.6-2.3)
[2025-06-08 13:03] LABS: Hemoglobin A1C 6.8 % (<5.7)
[2025-06-08] MEDS: NORTRIPTYLINE HCL 10 MG CAPSULE PO (20:49)
[2025-06-08 23:12] LABS: Free T4 Free Thyroxine Reflex 1.81 ng/dL (0.78-2.19)
[2025-06-08 23:55] LABS: Total Triiodothyronine (T3) 1.09 NG/ML (0.82-1.58)
[2025-06-09 04:37] VITALS: BP 94/56; PULSE 83; RESP 18; TEMP 36.1; O2SAT 96
[2025-06-09 04:47] LABS: Hematocrit 41.4 % (37.0-47.0); Hemoglobin 13.1 g/dL (12.0-15.0); Immature Granulocyte Percent A 0.6 % (0-0.5); Lymphocytes Absolute Auto 1.01 K/mm3 (0.9-3.2); Mean Corpuscular HGB Conc 31.6 g/dl (32-36); Mean Corpuscular Hemoglobin 33.2 pg (26-34); Mean Corpuscular Volume 104.8 fl (80-100); Nucleated Red Blood Cells Absolute Auto 0.000 K/mm3 (0.0-0.012); Nucleated Red Blood Cells Perc 0.0 % (0.0-0.2); Platelet Count Result 224 k/mm3 (150-375); Red Blood Count 3.95 M/mm3 (4.2-5.4); White Blood Count 3.6 K/mm3 (4.5-10.0)
[2025-06-09 05:07] LABS: Alanine Aminotransferase 28 U/L (6-35); Albumin Level 2.9 g/dL (3.5-5.1); Alkaline Phosphatase 292 U/L (38-126); Anion Gap 6 mmol/L (4-12); Aspartate Amino Transferase 51 U/L (14-36); Bilirubin,Total 2.5 mg/dL (0.2-1.3); Blood Urea Nitrogen 23 mg/dL (7-17); Calcium 8.6 mg/dL (8.4-10.2); Carbon Dioxide 25 mmol/L (22-30); Chloride 104 mmol/L (98-107); Estimated CRCL calculation 65 ml/min; Estimated Glomerular Filt Rate > 60; Glucose 119 mg/dL (65-110); Potassium 4.6 mmol/L (3.4-5.0); Sodium 135 mmol/L (137-145); Total Protein 6.4 g/dL (6.3-8.2)
[2025-06-09] MEDS: LEVOTHYROXINE SODIUM 75 MCG TABLET PO (06:06)
--- NOTE | 2025-06-09 07:17 | P.PNIM_ITS ---
Progress Note: A&P Assessment and Plan (1) Debility: Code(s): R53.81 - Other malaise Status: Acute Assessment and Plan: * Arrived to hospital after being removed from nursing facility and instructed not to come back * There was contention with family/facility regarding correct dosing of insulin - Glucose levels have been in the 100s throughout visit * Patient's family brought her to hospital for placement - will contact them regarding baseline mentation status * CMP/CBC unremarkable, Ammonia wnl * Afebrile, no leukocytosis * ABG, Head CT, EKG pending * Consider Neuro/psych consult if workup negative and can confirm with family that this is not patient's baseline mentation status * Working with CC/social regarding placement * PT/OT ophelia - recommend SNF (2) Generalized weakness: Code(s): R53.1 - Weakness Status: Acute Assessment and Plan: * See above (3) Type 2 diabetes mellitus with hyperglycemia: Code(s): E11.65 - Type 2 diabetes mellitus with hyperglycemia Status: Acute Assessment and Plan: * Hypoglycemia protocol * POC blood glucose ACHS * Home medication - Jardiance * Correct regimen ordered - Med dose TIDWM and HS (15 units) * A1C 6.8 * Glucose levels remain well controlled (4) PAF (paroxysmal atrial fibrillation): Code(s): I48.0 - Paroxysmal atrial fibrillation Status: Acute Assessment and Plan: * Keep serum potassium >4 and keep magnesium >2 * Chronic, on eliquis, metoprolol * Continue at home medications * EKG: Afib but rate controlled (5) HTN (hypertension): Code(s): I10 - Essential (primary) hypertension Status: Chronic Assessment and Plan: * Patient's blood pressure was reviewed on 06/08 * Blood pressure remains well controlled. * Will continue current medications. * 116/81 (6) Right-sided heart failure: Code(s): I50.810 - Right heart failure, unspecified Status: Acute Assessment and Plan: * Monitor vital signs, I&Os, BUN/creatinine, daily weights, neuro status and patient is a fall risk * Monitor serum electrolytes, Keep serum Potassium>4 and serum Magnesium>2 and CBC * Continue at home medications - Entresto, Jardiance * No evidence of fluid overload on exam * No SOB, hypoxia Plan Code status: Full code per patient DVT prophylaxis: Eliquis, scd Stress ulcer prophylaxis: Not indicated PT/OT notes: PT/OT evaluation Subjective Date/time seen: 06/09/25 07:17 Interval history: 64-year-old female with a past medical history of Afib (on Xarelto), MSSA bacteremia, intellectual disability, and endocarditis of tricuspid valve in 06/02, HTN, hypothyroidism, CHF, GERD, and diabetes who presents to the hospital for placement and issues with insulin dosages. 06/09/2025 Patient sitting comfortably in bed at time of exam. Denies any chest pain, shortness of breath, n/v, abd pain. Glucose levels remain well controlled. Working with CC regarding placement. Review of Systems Review of Systems: All systems reviewed & are unremarkable except as noted in HPI and below Exam Narrative: Gen - chronically ill appearing female in no acute respiratory distress HEENT - normocephalic. Atraumatic. Pupils equal round and reactive. Extraocular motions intact. Sclera clear and anicteric. Oropharynx was clear. Moist mucous membranes. No facial asymmetry. Neck - neck was supple. No dominant adenopathy, thyromegaly or masses. Chest - lungs are clear to auscultation bilaterally. No wheezes or crackles. CV - heart was regular rate and rhythm. S1-S2. No murmurs gallops or rubs. Abd - abdomen was soft. Nontender. Nondistended. Positive bowel sounds. Ext - no clubbing, cyanosis or edema. 2+ DP pulses bilaterally. Neuro - patient is alert and oriented x1. Strength is 5/5 in both upper and lower extremities. Psych - normal mood and affect. Patient is pleasant and cooperative. Skin - warm and dry. No rashes noted. Objective Data Vital Signs Vital Signs: Vital Signs - 24 hr 06/08/25 10:43 06/08/25 13:15 06/08/25 14:13 Temperature Pulse Rate 62 Respiratory Rate Blood Pressure Pulse Oximetry Oxygen Delivery Room Air Room Air 06/08/25 15:08 06/08/25 20:00 06/08/25 20:43 Temperature 97.2 F L 97.1 F L Pulse Rate 69 77 Respiratory Rate 16 18 Blood Pressure 131/94 H 102/40 L Pulse Oximetry 100 96 Oxygen Delivery Room Air 06/09/25 04:37 Temperature 97 F L Pulse Rate 83 Respiratory Rate 18 Blood Pressure 94/56 L Pulse Oximetry 96 Oxygen Delivery Intake/Output Intake/Output: Intake & Output 06/06/25 06/07/25 06/08/25 06/09/25 23:59 23:59 23:59 23:59 Intake Total 1510 200 Output Total 50 Balance 1460 200 Meds/Results Medications: Active Medications Generic Name Dose Route Start Last Admin Trade Name Freq PRN Reason Stop Dose Admin Acetaminophen 500 mg 06/08/25 08:35 Acetaminophen 500 Mg Tablet PO Q6H PRN pain (scale score 1-3) or fever. Albuterol 2 puff 06/08/25 08:35 Albuterol Sulfate (*Sp) Aerosol 1 Puff INHALATION Q6HRT PRN Shortness Of Breath Or Wheezing Apixaban 5 mg 06/08/25 09:00 06/08/25 20:49 Apixaban 5 Mg Tablet PO 5 mg Q12HR GALINA Administration Ascorbic Acid 500 mg 06/08/25 09:00 06/08/25 10:41 Ascorbic Acid 500 Mg Tablet PO 500 mg DAILY GALINA Administration Buspirone HCl 10 mg 06/08/25 09:00 06/08/25 17:10 Buspirone Hcl 10 Mg Tablet PO 10 mg BID GALINA Administration Dextrose 12.5 gm 06/08/25 07:06 Dextrose 50% 25 Gm/50 Ml Syringe IV PUSH PRN PRN Hypoglycemia Protocol Docusate Sodium 100 mg 06/08/25 09:00 06/08/25 17:10 Docusate Sodium 100 Mg Capsule PO 100 mg BID GALINA Administration Empagliflozin 10 mg 06/08/25 09:00 06/08/25 10:44 Empagliflozin 10 Mg Tablet PO 10 mg DAILY GALINA Administration Escitalopram Oxalate 10 mg 06/08/25 09:00 06/08/25 10:41 Escitalopram Oxalate 10 Mg Tablet PO 10 mg DAILY GALINA Administration Ferrous Sulfate 325 mg 06/09/25 09:00 Ferrous Sulfate [address] BY MOUTH DAILY GALINA Fluticasone Propionate 1 spray 06/08/25 08:35 Fluticasone Propionate 0.05% Na Spr 16 Gm Btl (*Bkc) NASAL DAILY PRN allergy symptoms/Rhinitis. Glucagon 1 mg 06/08/25 07:06 Glucagon For Inj 1 Mg Vial IM PRN PRN Hypoglycemia Protocol Glucose 15 gm 06/08/25 07:06 Glucose Oral Gel 15 Gm Of Glucse In 37.5 Gm Tube PO PRN PRN Hypoglycemia Protocol Hydrocortisone 1 applic 06/08/25 09:00 Hydrocortisone 1% 30 Gm Cream TOPICAL Q12HR PRN Itching Hydroxyzine HCl 25 mg 06/08/25 08:35 Hydroxyzine Hcl 25 Mg Tablet PO Q4H PRN itching or anxiety. Dextrose 1,000 mls @ 100 mls/hr 06/08/25 07:06 Dextrose 5% 1,000 Ml IVPB PRN PRN Hypoglycemia Protocol Insulin Aspart 4 - 8 units 06/08/25 08:00 06/08/25 17:10 Insulin Aspart (*Bkc) 100 Units/Ml SUB-Q Not Given TIDWM [facility] Protocol Insulin Glargine 15 units 06/08/25 21:00 06/08/25 21:48 Insulin Glargine (*Bkc) 100 Units/Ml SUB-Q Not Given HS [facility] Levothyroxine Sodium 75 mcg 06/08/25 09:15 06/09/25 06:06 Levothyroxine Sodium 75 Mcg Tablet PO 75 mcg DAILY@0630 GALINA Administration Magnesium Oxide 400 mg 06/08/25 09:00 06/08/25 10:43 Magnesium Oxide 400 Mg Tablet PO 400 mg DAILY GALINA Administration Metoprolol Succinate 25 mg 06/08/25 09:00 06/08/25 10:43 Metoprolol Succinate Ext Rel 25 Mg Tabcr PO 25 mg DAILY GALINA Administration Miscellaneous Information 1 each 06/08/25 00:01 Nonformulary Drug (Vibegron [Gemtesa] 75 Mg Tablet)Can Patient Use From Home? XX 07/08/25 00:00 CL[facility]IFY [facility] Miscellaneous Information 1 each 06/08/25 00:01 Nonformulary Drug (Lidocaine [Aspercreme (Lidocaine)] 4 % Adhesive Patch,Medic ated)Can Pat XX 07/08/25 00:00 [facility]IFY [facility] Non-Formulary Medication 1 patch 06/08/25 08:35 Lidocaine [Aspercreme (Lidocaine)] TOPICAL DAILY PRN back pain. Non-Formulary Medication 75 mg 06/08/25 09:00 Vibegron [Gemtesa] PO 07/08/25 08:59 DAILY GALINA Nortriptyline HCl 10 mg 06/08/25 21:00 06/08/25 20:49 Nortriptyline Hcl 10 Mg Capsule PO 10 mg HS GALINA Administration Pantoprazole Sodium 40 mg 06/08/25 09:00 06/08/25 10:54 Pantoprazole 40 Mg Tablet PO 40 mg QAM GALINA Administration Polyethylene Glycol 17 gm 06/08/25 08:35 Polyethylene Glycol 3350 17 Gm Powd.Pack PO DAILY PRN Constipation Sacubitril/Valsartan 1 tab 06/08/25 09:45 06/08/25 20:49 Sacubitril/Valsartan 12-13 Mg Tablet PO 1 tab Q12HR GALINA Administration Spironolactone 25 mg 06/08/25 09:00 06/08/25 10:41 Spironolactone 25 Mg Tablet PO 25 mg DAILY GALINA Administration Vitamin D 125 mcg 06/08/25 09:00 06/08/25 11:01 Cholecalciferol (Vitamin D3) 125 Mcg (5,000 Units) Tablet PO 125 mcg DAILY GALINA Administration Radiology Results: ITS Impressions Head CT 06/08/25 19:05 Impression: 1.No acute intracranial abnormality. Labs Labs: Laboratory Results - last 24 hr 06/08/25 06/08/25 06/08/25 00:51 07:49 10:57 WBC RBC Hgb Hct MCV MCH MCHC RDW Plt Count MPV Immature Gran % (Auto) Neut % (Auto) Lymph % (Auto) [place] % (Auto) Eos % (Auto) Baso % (Auto) Lymph # (Auto) [place] # (Auto) Eos # (Auto) Baso # (Auto) Abs Immat Gran (auto) Absolute Neuts (auto) Absolute Nucleated RBC Nucleated RBC % Sodium Potassium Chloride Carbon Dioxide Anion Gap BUN Creatinine Estim Creat Clear Calc Estimated GFR Glucose POC Capillary Glucose 165 H Hemoglobin A1c 6.8 H Calcium Magnesium 2.0 Total Bilirubin AST ALT Alkaline Phosphatase Ammonia 19 Total Protein Albumin TSH (Reflex) 7.000 H Free T4 1.81 Total T3 1.09 06/08/25 06/08/25 06/08/25 11:20 16:32 20:48 WBC RBC Hgb Hct MCV MCH MCHC RDW Plt Count MPV Immature Gran % (Auto) Neut % (Auto) Lymph % (Auto) [place] % (Auto) Eos % (Auto) Baso % (Auto) Lymph # (Auto) [place] # (Auto) Eos # (Auto) Baso # (Auto) Abs Immat Gran (auto) Absolute Neuts (auto) Absolute Nucleated RBC Nucleated RBC % Sodium Potassium Chloride Carbon Dioxide Anion Gap BUN Creatinine Estim Creat Clear Calc Estimated GFR Glucose POC Capillary Glucose 165 H 185 H 194 H Hemoglobin A1c Calcium Magnesium Total Bilirubin AST ALT Alkaline Phosphatase Ammonia Total Protein Albumin TSH (Reflex) Free T4 Total T3 06/09/25 04:35 WBC 3.6 L RBC 3.95 L Hgb 13.1 Hct 41.4 MCV 104.8 H MCH 33.2 MCHC 31.6 L RDW 15.7 H Plt Count 224 MPV 9.4 Immature Gran % (Auto) 0.6 H Neut % (Auto) 44.2 L Lymph % (Auto) 28.2 [place] % (Auto) 18.7 H Eos % (Auto) 6.1 H Baso % (Auto) 2.2 H Lymph # (Auto) 1.01 [place] # (Auto) 0.7 H Eos # (Auto) 0.2 Baso # (Auto) 0.1 Abs Immat Gran (auto) 0.02 Absolute Neuts (auto) 1.6 Absolute Nucleated RBC 0.000 Nucleated RBC % 0.0 Sodium 135 L Potassium 4.6 Chloride 104 Carbon Dioxide 25 Anion Gap 6 BUN 23 H Creatinine 0.91 Estim Creat Clear Calc 65 Estimated GFR > 60 Glucose 119 H POC Capillary Glucose Hemoglobin A1c Calcium 8.6 Magnesium Total Bilirubin 2.5 H AST 51 H ALT 28 Alkaline Phosphatase 292 H Ammonia Total Protein 6.4 Albumin 2.9 L TSH (Reflex) Free T4 Total T3 Quality VTE Prophylaxis VTE prophylaxis: mechanical ordered and pharmacologic ordered
[2025-06-09 09:30] VITALS: PULSE 83
[2025-06-09] MEDS: METOPROLOL SUCCINATE EXT REL 25 MG TABCR PO (09:30)
[2025-06-09] MEDS: SACUBITRIL/VALSARTAN 12-13 MG TABLET 1 TAB PO ×2 (09:31→20:01)
[2025-06-09] MEDS: FERROUS SULFATE 325 MG TABLET DR BY MOUTH (09:31)
[2025-06-09] MEDS: ESCITALOPRAM OXALATE 10 MG TABLET PO (09:31)
[2025-06-09] MEDS: EMPAGLIFLOZIN 10 MG TABLET PO (09:31)
[2025-06-09] MEDS: MAGNESIUM OXIDE 400 MG TABLET PO (09:31)
[2025-06-09] MEDS: CHOLECALCIFEROL (VITAMIN D3) 125 MCG (5,000 UNITS) TABLET PO (09:31)
[2025-06-09] MEDS: APIXABAN 5 MG TABLET PO ×2 (09:31→20:01)
[2025-06-09] MEDS: ASCORBIC ACID 500 MG TABLET PO (09:31)
[2025-06-09] MEDS: PANTOPRAZOLE 40 MG TABLET PO (09:31)
[2025-06-09] MEDS: SPIRONOLACTONE 25 MG TABLET PO (09:31)
[2025-06-09] MEDS: INSULIN ASPART (*BKC) 100 UNITS/ML SUB-Q (11:41)
[2025-06-09 13:49] VITALS: BP 94/54; PULSE 89; RESP 18; TEMP 36.2; O2SAT 100
[2025-06-09] MEDS: DOCUSATE SODIUM 100 MG CAPSULE PO (16:13)
[2025-06-09 20:00] VITALS: PULSE 1; RESP 16; O2SAT 100
[2025-06-09] MEDS: NORTRIPTYLINE HCL 10 MG CAPSULE PO (20:01)
[2025-06-09 20:11] VITALS: BP 118/56; PULSE 1; RESP 16; TEMP 36.3; O2SAT 100
[2025-06-09] MEDS: INSULIN GLARGINE (*BKC) 100 UNITS/ML 15 UNITS SUB-Q (20:16)
[2025-06-10 04:40] LABS: Hematocrit 42.6 % (37.0-47.0); Hemoglobin 13.3 g/dL (12.0-15.0); Immature Granulocyte Percent A 0.4 % (0-0.5); Lymphocytes Absolute Auto 1.21 K/mm3 (0.9-3.2); Mean Corpuscular HGB Conc 31.2 g/dl (32-36); Mean Corpuscular Hemoglobin 33.5 pg (26-34); Mean Corpuscular Volume 107.3 fl (80-100); Nucleated Red Blood Cells Absolute Auto 0.000 K/mm3 (0.0-0.012); Nucleated Red Blood Cells Perc 0.0 % (0.0-0.2); Platelet Count Result 244 k/mm3 (150-375); Red Blood Count 3.97 M/mm3 (4.2-5.4); White Blood Count 4.7 K/mm3 (4.5-10.0)
[2025-06-10 05:03] LABS: Alanine Aminotransferase 30 U/L (6-35); Albumin Level 3.0 g/dL (3.5-5.1); Alkaline Phosphatase 325 U/L (38-126); Anion Gap 6 mmol/L (4-12); Aspartate Amino Transferase 55 U/L (14-36); Bilirubin,Total 2.4 mg/dL (0.2-1.3); Blood Urea Nitrogen 18 mg/dL (7-17); Calcium 8.7 mg/dL (8.4-10.2); Carbon Dioxide 27 mmol/L (22-30); Chloride 103 mmol/L (98-107); Estimated CRCL calculation 77 ml/min; Estimated Glomerular Filt Rate > 60; Glucose 100 mg/dL (65-110); Potassium 5.1 mmol/L (3.4-5.0); Sodium 136 mmol/L (137-145); Total Protein 6.7 g/dL (6.3-8.2)
[2025-06-10 06:00] VITALS: BP 100/56; PULSE 94; RESP 18; TEMP 36.6; O2SAT 100
[2025-06-10] MEDS: LEVOTHYROXINE SODIUM 75 MCG TABLET PO (06:32)
--- NOTE | 2025-06-10 07:17 | P.PNIM_ITS ---
Progress Note: A&P Assessment and Plan (1) Debility: Code(s): R53.81 - Other malaise Status: Acute Assessment and Plan: * Arrived to hospital after being removed from nursing facility and instructed not to come back * There was contention with family/facility regarding correct dosing of insulin - Glucose levels have been in the 100s throughout visit * Patient's family brought her to hospital for placement - will contact them regarding baseline mentation status * CMP/CBC unremarkable, Ammonia wnl * Afebrile, no leukocytosis * ABG, Head CT, EKG pending * Consider Neuro/psych consult if workup negative and can confirm with family that this is not patient's baseline mentation status * Working with CC/social regarding placement * PT/OT ophelia - recommend SNF (2) Generalized weakness: Code(s): R53.1 - Weakness Status: Acute Assessment and Plan: * See above (3) Type 2 diabetes mellitus with hyperglycemia: Code(s): E11.65 - Type 2 diabetes mellitus with hyperglycemia Status: Acute Assessment and Plan: * Hypoglycemia protocol * POC blood glucose ACHS * Home medication - Jardiance * Correct regimen ordered - Med dose TIDWM and HS (15 units) * A1C 6.8 * Glucose levels remain well controlled (4) PAF (paroxysmal atrial fibrillation): Code(s): I48.0 - Paroxysmal atrial fibrillation Status: Acute Assessment and Plan: * Keep serum potassium >4 and keep magnesium >2 * Chronic, on eliquis, metoprolol * Continue at home medications * EKG: Afib but rate controlled (5) HTN (hypertension): Code(s): I10 - Essential (primary) hypertension Status: Chronic Assessment and Plan: * Patient's blood pressure was reviewed on 06/08 * Blood pressure remains well controlled. * Will continue current medications. * 112/79 (6) Right-sided heart failure: Code(s): I50.810 - Right heart failure, unspecified Status: Acute Assessment and Plan: * Monitor vital signs, I&Os, BUN/creatinine, daily weights, neuro status and patient is a fall risk * Monitor serum electrolytes, Keep serum Potassium>4 and serum Magnesium>2 and CBC * Continue at home medications - Entresto, Jardiance * No evidence of fluid overload on exam * No SOB, hypoxia Plan Code status: Full code per patient DVT prophylaxis: Eliquis, scd Stress ulcer prophylaxis: Not indicated PT/OT notes: PT/OT evaluation Subjective Date/time seen: 06/10/25 07:17 Interval history: 64-year-old female with a past medical history of Afib (on Xarelto), MSSA bacteremia, intellectual disability, and endocarditis of tricuspid valve in 06/02, HTN, hypothyroidism, CHF, GERD, and diabetes who presents to the hospital for placement and issues with insulin dosages. 06/10/2025 Patient sitting comfortably at bedside at time of exam. Blood pressures stable - 112/79. Updated medication list received and reconciled. Patient otherwise doing well and has no complaints. PT/OT recommending SNF - working with CC regarding placement. Physical exam is benign/reassuring. Continue to monitor for any developing fever, altered mental status or electrolyte imbalances. She remains A&Ox4 with appropriate glucose levels. Review of Systems Review of Systems: All systems reviewed & are unremarkable except as noted in HPI and below Exam Narrative: Gen - chronically ill appearing female in no acute respiratory distress HEENT - normocephalic. Atraumatic. Pupils equal round and reactive. Extraocular motions intact. Sclera clear and anicteric. Oropharynx was clear. Moist mucous membranes. No facial asymmetry. Neck - neck was supple. No dominant adenopathy, thyromegaly or masses. Chest - lungs are clear to auscultation bilaterally. No wheezes or crackles. CV - heart was regular rate and rhythm. S1-S2. No murmurs gallops or rubs. Abd - abdomen was soft. Nontender. Nondistended. Positive bowel sounds. Ext - no clubbing, cyanosis or edema. 2+ DP pulses bilaterally. Neuro - patient is alert and oriented x1. Strength is 5/5 in both upper and l ower extremities. Psych - normal mood and affect. Patient is pleasant and cooperative. Skin - warm and dry. No rashes noted. Objective Data Vital Signs Vital Signs: Vital Signs - 24 hr 06/09/25 08:00 06/09/25 09:30 06/09/25 13:49 Temperature 97.2 F L Pulse Rate 83 89 Respiratory Rate 18 Blood Pressure 94/54 L Pulse Oximetry 100 Oxygen Delivery Room Air 06/09/25 20:00 06/09/25 20:11 06/10/25 06:00 Temperature 97.3 F L 97.9 F Pulse Rate 1 L 1 L 94 Respiratory Rate 16 16 18 Blood Pressure 118/56 L 100/56 L Pulse Oximetry 100 100 100 Oxygen Delivery Room Air Intake/Output Intake/Output: Intake & Output 06/07/25 06/08/25 06/09/25 06/10/25 23:59 23:59 23:59 23:59 Intake Total 1510 1466 100 Output Total 50 Balance 1460 1466 100 Meds/Results Medications: Active Medications Generic Name Dose Route Start Last Admin Trade Name Freq PRN Reason Stop Dose Admin Acetaminophen 500 mg 06/08/25 08:35 Acetaminophen 500 Mg Tablet PO Q6H PRN pain (scale score 1-3) or fever. Albuterol 2 puff 06/08/25 08:35 Albuterol Sulfate (*Sp) Aerosol 1 Puff INHALATION Q6HRT PRN Shortness Of Breath Or Wheezing Apixaban 5 mg 06/08/25 09:00 06/09/25 20:01 Apixaban 5 Mg Tablet PO 5 mg Q12HR GALINA Administration Ascorbic Acid 500 mg 06/08/25 09:00 06/09/25 09:31 Ascorbic Acid 500 Mg Tablet PO 500 mg DAILY GALINA Administration Buspirone HCl 10 mg 06/08/25 09:00 06/09/25 16:13 Buspirone Hcl 10 Mg Tablet PO 10 mg BID GALINA Administration Dextrose 12.5 gm 06/08/25 07:06 Dextrose 50% 25 Gm/50 Ml Syringe IV PUSH PRN PRN Hypoglycemia Protocol Docusate Sodium 100 mg 06/08/25 09:00 06/09/25 16:13 Docusate Sodium 100 Mg Capsule PO 100 mg BID GALINA Administration Empagliflozin 10 mg 06/08/25 09:00 06/09/25 09:31 Empagliflozin 10 Mg Tablet PO 10 mg DAILY GALINA Administration Escitalopram Oxalate 10 mg 06/08/25 09:00 06/09/25 09:31 Escitalopram Oxalate 10 Mg Tablet PO 10 mg DAILY GALINA Administration Ferrous Sulfate 325 mg 06/09/25 09:00 06/09/25 09:31 Ferrous Sulfate [address] BY MOUTH 325 mg DAILY GALINA Administration Fluticasone Propionate 1 spray 06/08/25 08:35 Fluticasone Propionate 0.05% Na Spr 16 Gm Btl (*Bkc) NASAL DAILY PRN allergy symptoms/Rhinitis. Glucagon 1 mg 06/08/25 07:06 Glucagon For Inj 1 Mg Vial IM PRN PRN Hypoglycemia Protocol Glucose 15 gm 06/08/25 07:06 Glucose Oral Gel 15 Gm Of Glucse In 37.5 Gm Tube PO PRN PRN Hypoglycemia Protocol Hydrocortisone 1 applic 06/08/25 09:00 Hydrocortisone 1% 30 Gm Cream TOPICAL Q12HR PRN Itching Hydroxyzine HCl 25 mg 06/08/25 08:35 06/09/25 20:49 Hydroxyzine Hcl 25 Mg Tablet PO 25 mg Q4H PRN Administration itching or anxiety. Dextrose 1,000 mls @ 100 mls/hr 06/08/25 07:06 Dextrose 5% 1,000 Ml IVPB PRN PRN Hypoglycemia Protocol Insulin Aspart 4 - 8 units 06/08/25 08:00 06/09/25 18:14 Insulin Aspart (*Bkc) 100 Units/Ml SUB-Q Not Given TIDWM [facility] Protocol Insulin Glargine 15 units 06/08/25 21:00 06/09/25 20:16 Insulin Glargine (*Bkc) 100 Units/Ml SUB-Q 15 units HS GALINA Administration Levothyroxine Sodium 75 mcg 06/08/25 09:15 06/10/25 06:32 Levothyroxine Sodium 75 Mcg Tablet PO 75 mcg DAILY@0630 GALINA Administration Magnesium Oxide 400 mg 06/08/25 09:00 06/09/25 09:31 Magnesium Oxide 400 Mg Tablet PO 400 mg DAILY GALINA Administration Metoprolol Succinate 25 mg 06/08/25 09:00 06/09/25 09:30 Metoprolol Succinate Ext Rel 25 Mg Tabcr PO 25 mg DAILY GALINA Administration Miscellaneous Information 1 each 06/08/25 00:01 Nonformulary Drug (Vibegron [Gemtesa] 75 Mg Tablet)Can Patient Use From Home? XX 07/08/25 00:00 [facility] Miscellaneous Information 1 each 06/08/25 00:01 Nonformulary Drug (Lidocaine [Aspercreme (Lidocaine)] 4 % Adhesive P [facility],Medicated)Can Pat XX 07/08/25 00:00 [facility] Non-Formulary Medication 1 patch 06/08/25 08:35 Lidocaine [Aspercreme (Lidocaine)] TOPICAL DAILY PRN back pain. Non-Formulary Medication 75 mg 06/08/25 09:00 Vibegron [Gemtesa] PO 07/08/25 08:59 DAILY GALINA Nortriptyline HCl 10 mg 06/08/25 21:00 06/09/25 20:01 Nortriptyline Hcl 10 Mg Capsule PO 10 mg HS GALINA Administration Pantoprazole Sodium 40 mg 06/08/25 09:00 06/09/25 09:31 Pantoprazole 40 Mg Tablet PO 40 mg QAM GALINA Administration Polyethylene Glycol 17 gm 06/08/25 08:35 06/09/25 16:13 Polyethylene Glycol 3350 17 Gm Powd.Pack PO 17 gm DAILY PRN Administration Constipation Sacubitril/Valsartan 1 tab 06/08/25 09:45 06/09/25 20:01 Sacubitril/Valsartan 12-13 Mg Tablet PO 1 tab Q12HR GALINA Administration Spironolactone 25 mg 06/08/25 09:00 06/09/25 09:31 Spironolactone 25 Mg Tablet PO 25 mg DAILY GALINA Administration Vitamin D 125 mcg 06/08/25 09:00 06/09/25 09:31 Cholecalciferol (Vitamin D3) 125 Mcg (5,000 Units) Tablet PO 125 mcg DAILY GALINA Administration Radiology Results: ITS Impressions Head CT 06/08/25 19:05 Impression: 1.No acute intracranial abnormality. Labs Labs: Laboratory Results - last 24 hr 06/09/25 06/09/25 06/09/25 07:13 11:25 20:15 WBC RBC Hgb Hct MCV MCH MCHC RDW Plt Count MPV Immature Gran % (Auto) Neut % (Auto) Lymph % (Auto) [place] % (Auto) Eos % (Auto) Baso % (Auto) Lymph # (Auto) [place] # (Auto) Eos # (Auto) Baso # (Auto) Abs Immat Gran (auto) Absolute Neuts (auto) Absolute Nucleated RBC Nucleated RBC % Sodium Potassium Chloride Carbon Dioxide Anion Gap BUN Creatinine Estim Creat Clear Calc Estimated GFR Glucose POC Capillary Glucose 107 H 204 H 139 H Calcium Total Bilirubin AST ALT Alkaline Phosphatase Total Protein Albumin 06/10/25 04:12 WBC 4.7 RBC 3.97 L Hgb 13.3 Hct 42.6 MCV 107.3 H MCH 33.5 MCHC 31.2 L RDW 15.4 H Plt Count 244 MPV 9.1 Immature Gran % (Auto) 0.4 Neut % (Auto) 54.5 Lymph % (Auto) 25.5 [place] % (Auto) 13.3 H Eos % (Auto) 4.6 H Baso % (Auto) 1.7 H Lymph # (Auto) 1.21 [place] # (Auto) 0.6 Eos # (Auto) 0.2 Baso # (Auto) 0.1 Abs Immat Gran (auto) 0.02 Absolute Neuts (auto) 2.6 Absolute Nucleated RBC 0.000 Nucleated RBC % 0.0 Sodium 136 L Potassium 5.1 H Chloride 103 Carbon Dioxide 27 Anion Gap 6 BUN 18 H Creatinine 0.76 Estim Creat Clear Calc 77 Estimated GFR > 60 Glucose 100 POC Capillary Glucose Calcium 8.7 Total Bilirubin 2.4 H AST 55 H ALT 30 Alkaline Phosphatase 325 H Total Protein 6.7 Albumin 3.0 L Quality VTE Prophylaxis VTE prophylaxis: mechanical ordered and pharmacologic ordered
[2025-06-10 09:07] VITALS: BP 100/51; PULSE 105
[2025-06-10] MEDS: APIXABAN 5 MG TABLET PO ×2 (09:10→21:40)
[2025-06-10] MEDS: ASCORBIC ACID 500 MG TABLET PO (09:10)
[2025-06-10 09:11] VITALS: PULSE 105
[2025-06-10] MEDS: PANTOPRAZOLE 40 MG TABLET PO (09:11)
[2025-06-10] MEDS: EMPAGLIFLOZIN 10 MG TABLET PO (09:11)
[2025-06-10] MEDS: FERROUS SULFATE 325 MG TABLET DR BY MOUTH (09:11)
[2025-06-10] MEDS: METOPROLOL SUCCINATE EXT REL 25 MG TABCR PO (09:11)
[2025-06-10] MEDS: DOCUSATE SODIUM 100 MG CAPSULE PO ×2 (09:11→17:38)
[2025-06-10] MEDS: SPIRONOLACTONE 25 MG TABLET PO (09:11)
[2025-06-10] MEDS: MAGNESIUM OXIDE 400 MG TABLET PO (09:11)
[2025-06-10] MEDS: ESCITALOPRAM OXALATE 10 MG TABLET PO (09:11)
[2025-06-10] MEDS: CHOLECALCIFEROL (VITAMIN D3) 125 MCG (5,000 UNITS) TABLET PO (09:11)
[2025-06-10] MEDS: SODIUM CHLORIDE 0.9% IV 1,000 ML 100 ML IV CONT (12:27)
--- NOTE | 2025-06-10 13:28 | PC.NURSE ---
Pt's BP was 100/51 this AM. Family member was concerned about the Entresto and said pt does not normally take medication and does not want pt to receive it. Informed provider Rafael Gibson that family member did not want pt to have it and he said to check BP again and hold AM dose and give PM dose.
[2025-06-10 13:52] VITALS: BP 112/79; PULSE 78; RESP 16; TEMP 36.1; O2SAT 94
[2025-06-10 20:00] VITALS: PULSE 89; RESP 18; O2SAT 97
[2025-06-10] MEDS: NORTRIPTYLINE HCL 10 MG CAPSULE PO (21:40)
[2025-06-10] MEDS: SACUBITRIL/VALSARTAN 12-13 MG TABLET 1 TAB PO (21:40)
[2025-06-10] MEDS: INSULIN GLARGINE (*BKC) 100 UNITS/ML 15 UNITS SUB-Q (21:41)
[2025-06-10 22:00] VITALS: BP 98/61; PULSE 89; RESP 18; TEMP 36.2; O2SAT 97
[2025-06-11 04:45] LABS: Hematocrit 40.4 % (37.0-47.0); Hemoglobin 13.2 g/dL (12.0-15.0); Immature Granulocyte Percent A 0.6 % (0-0.5); Lymphocytes Absolute Auto 0.98 K/mm3 (0.9-3.2); Mean Corpuscular HGB Conc 32.7 g/dl (32-36); Mean Corpuscular Hemoglobin 33.9 pg (26-34); Mean Corpuscular Volume 103.9 fl (80-100); Nucleated Red Blood Cells Absolute Auto 0.000 K/mm3 (0.0-0.012); Nucleated Red Blood Cells Perc 0.0 % (0.0-0.2); Platelet Count Result 225 k/mm3 (150-375); Red Blood Count 3.89 M/mm3 (4.2-5.4); White Blood Count 4.7 K/mm3 (4.5-10.0)
[2025-06-11 04:55] VITALS: BP 95/43; PULSE 99; RESP 20; TEMP 37.1; O2SAT 97
[2025-06-11] MEDS: LEVOTHYROXINE SODIUM 75 MCG TABLET PO (04:58)
[2025-06-11 05:11] LABS: Alanine Aminotransferase 28 U/L (6-35); Albumin Level 3.0 g/dL (3.5-5.1); Alkaline Phosphatase 351 U/L (38-126); Anion Gap 4 mmol/L (4-12); Aspartate Amino Transferase 47 U/L (14-36); Bilirubin,Total 2.2 mg/dL (0.2-1.3); Blood Urea Nitrogen 15 mg/dL (7-17); Calcium 8.8 mg/dL (8.4-10.2); Carbon Dioxide 24 mmol/L (22-30); Chloride 104 mmol/L (98-107); Estimated CRCL calculation 82 ml/min; Estimated Glomerular Filt Rate > 60; Glucose 109 mg/dL (65-110); Potassium 4.5 mmol/L (3.4-5.0); Sodium 132 mmol/L (137-145); Total Protein 6.6 g/dL (6.3-8.2)
[2025-06-11 08:00] VITALS: O2SAT 97
[2025-06-11 09:01] VITALS: BP 118/60
[2025-06-11] MEDS: APIXABAN 5 MG TABLET PO (09:03)
[2025-06-11] MEDS: EMPAGLIFLOZIN 10 MG TABLET PO (09:04)
[2025-06-11] MEDS: SACUBITRIL/VALSARTAN 12-13 MG TABLET 1 TAB PO (09:04)
[2025-06-11] MEDS: FERROUS SULFATE 325 MG TABLET DR BY MOUTH (09:04)
[2025-06-11] MEDS: PANTOPRAZOLE 40 MG TABLET PO (09:04)
[2025-06-11] MEDS: CYANOCOBALAMIN 500 MCG TABLET PO (09:04)
[2025-06-11] MEDS: DOCUSATE SODIUM 100 MG CAPSULE PO ×2 (09:04→16:07)
[2025-06-11] MEDS: CHOLECALCIFEROL (VITAMIN D3) 125 MCG (5,000 UNITS) TABLET PO (09:04)
[2025-06-11] MEDS: MAGNESIUM OXIDE 400 MG TABLET PO (09:04)
[2025-06-11] MEDS: ESCITALOPRAM OXALATE 10 MG TABLET PO (09:04)
[2025-06-11 09:05] VITALS: PULSE 90
[2025-06-11] MEDS: ASCORBIC ACID 500 MG TABLET PO (09:05)
[2025-06-11] MEDS: METOPROLOL SUCCINATE EXT REL 25 MG TABCR PO (09:05)
--- NOTE | 2025-06-11 11:05 | P.DS_ITS ---
DS: Admitting Diagnosis Discharge Date 06/11/2025 Admitting Diagnosis Debility,Insulin dosing DS: Discharge Diagnosis Discharge Diagnosis (1) Debility: Code(s): R53.81 - Other malaise Status: Acute Assessment and Plan: * Arrived to hospital after being removed from nursing facility and instructed not to come back * There was contention with family/facility regarding correct dosing of insulin - Glucose levels have been in the 100s throughout visit * Patient's family brought her to hospital for placement - will contact them regarding baseline mentation status * CMP/CBC unremarkable, Ammonia wnl * Afebrile, no leukocytosis * ABG, Head CT, EKG pending * Consider Neuro/psych consult if workup negative and can confirm with family that this is not patient's baseline mentation status * Working with CC/social regarding placement * PT/OT ophelia - recommend SNF (2) Generalized weakness: Code(s): R53.1 - Weakness Status: Acute Assessment and Plan: * See above (3) Type 2 diabetes mellitus with hyperglycemia: Code(s): E11.65 - Type 2 diabetes mellitus with hyperglycemia Status: Acute Assessment and Plan: * Hypoglycemia protocol * POC blood glucose ACHS * Home medication - Jardiance * Correct regimen ordered - Med dose TIDWM and HS (15 units) * A1C 6.8 * Glucose levels remain well controlled (4) PAF (paroxysmal atrial fibrillation): Code(s): I48.0 - Paroxysmal atrial fibrillation Status: Acute Assessment and Plan: * Keep serum potassium >4 and keep magnesium >2 * Chronic, on eliquis, metoprolol * Continue at home medications * EKG: Afib but rate controlled (5) HTN (hypertension): Code(s): I10 - Essential (primary) hypertension Status: Chronic Assessment and Plan: * Patient's blood pressure was reviewed on 06/08 * Blood pressure remains well controlled. * Will continue current medications. * 112/79 (6) Right-sided heart failure: Code(s): I50.810 - Right heart failure, unspecified Status: Acute Assessment and Plan: * Monitor vital signs, I&Os, BUN/creatinine, daily weights, neuro status and patient is a fall risk * Monitor serum electrolytes, Keep serum Potassium>4 and serum Magnesium>2 and CBC * Continue at home medications - Entresto, Jardiance * No evidence of fluid overload on exam * No SOB, hypoxia Plan Code status: Full code per patient DVT prophylaxis: Eliquis, scd Stress ulcer prophylaxis: Not indicated PT/OT notes: PT/OT evaluation DS: Summary Hospital Course Reason for hospitalization: Placement, insulin dosing Hospital Course: Loretta Penn is a 64-year-old female with a past medical history of Afib (on Xarelto), MSSA bacteremia, intellectual disability, and endocarditis of tricuspid valve in 06/02, HTN, hypothyroidism, CHF, GERD, and diabetes who presents to the hospital for placement and issues with insulin dosages. Patient arrived to the emergency department from a fpc after the patient's family confronted the facility regarding incorrect insulin dosing and the patient was reportedly told to leave and not come back. She was recently discharged to the nursing facility after an extended stay at [facility] for an episode of congestive heart failure. Given the holiday weekend, the patient's family has been unable to find placement to another facility. They were unable to take care of the patient at home. Upon examination, patient denies any chest pain, shortness a breath, nausea/vomiting, headache/dizziness, abdominal pain or any urinary/bowel changes. Patient is rather difficult to awake and is oriented to name and date of but not location or time. No neurological deficits appreciated exam, however patient's baseline mentation status is unknown. Will attempt to contact family in order to establish baseline. ED workup: 100/80, 98 HR, 98% on RA, 97.4F, 18 RR WBC 4.1, Hgb 14.2, Hct 43.9, Na 132, K 4.9, BUN 22, Cr 0.83, 163 Glucose, 264 plt, Total Bilirubin 2.8, AST 70, ALT 34, Alk Phos 378 Glucose consistently in the 100s TSH 7.00 EKG, Head CT pending Upon admission, patient's medications were restarted. She was placed a sliding scale insulin and insulin Lantus 15 units. Throughout hospitalization, glucose levels have been stable. Patient is otherwise hemodynamically stable, no concern for infection. Sodium was slightly low at 132, but this is chronic. No other electrolyte abnormalities. Patient is A&Ox3 with no complaints at this time. Care coordination consult regarding placement. Patient has been accepted at [facility] - discharge at this time. Status at Discharge Functional status at discharge: uses cane/walker Overall status at discharge: patient is progressing back to baseline Time Spent with Patient Time attestation: Total time spent providing and/or coordinating discharge services: 34 Exam Narrative: Gen - chronically ill appearing female in no acute respiratory distress HEENT - normocephalic. Atraumatic. Pupils equal round and reactive. Extraocular motions intact. Sclera clear and anicteric. Oropharynx was clear. Moist mucous membranes. No facial asymmetry. Neck - neck was supple. No dominant adenopathy, thyromegaly or masses. Chest - lungs are clear to auscultation bilaterally. No wheezes or crackles. CV - heart was regular rate and rhythm. S1-S2. No murmurs gallops or rubs. Abd - abdomen was soft. Nontender. Nondistended. Positive bowel sounds. Ext - no clubbing, cyanosis or edema. 2+ DP pulses bilaterally. Neuro - patient is alert and oriented x4. Strength is 5/5 in both upper and lower extremities. Psych - normal mood and affect. Patient is pleasant and cooperative. Skin - warm and dry. No rashes noted. DS: Data Data Completed and Pending Labs on day of discharge: Labs from last 24 hours 06/11/25 06/11/25 06/10/25 07:45 04:32 21:40 WBC 4.7 RBC 3.89 L Hgb 13.2 Hct 40.4 MCV 103.9 H MCH 33.9 MCHC 32.7 RDW 15.5 H Plt Count 225 MPV 8.9 Immature Gran % (Auto) 0.6 H Neut % (Auto) 58.0 Lymph % (Auto) 21.0 [place] % (Auto) 13.3 H Eos % (Auto) 5.8 H Baso % (Auto) 1.3 H Lymph # (Auto) 0.98 [place] # (Auto) 0.6 Eos # (Auto) 0.3 Baso # (Auto) 0.1 Abs Immat Gran (auto) 0.03 Absolute Neuts (auto) 2.7 Absolute Nucleated RBC 0.000 Nucleated RBC % 0.0 Sodium 132 L Potassium 4.5 Chloride 104 Carbon Dioxide 24 Anion Gap 4 BUN 15 Creatinine 0.71 Estim Creat Clear Calc 82 Estimated GFR > 60 Glucose 109 POC Capillary Glucose 94 247 H Calcium 8.8 Total Bilirubin 2.2 H AST 47 H ALT 28 Alkaline Phosphatase 351 H Total Protein 6.6 Albumin 3.0 L 06/10/25 06/10/25 16:26 11:18 WBC RBC Hgb Hct MCV MCH MCHC RDW Plt Count MPV Immature Gran % (Auto) Neut % (Auto) Lymph % (Auto) [place] % (Auto) Eos % (Auto) Baso % (Auto) Lymph # (Auto) [place] # (Auto) Eos # (Auto) Baso # (Auto) Abs Immat Gran (auto) Absolute Neuts (auto) Absolute Nucleated RBC Nucleated RBC % Sodium Potassium Chloride Carbon Dioxide Anion Gap BUN Creatinine Estim Creat Clear Calc Estimated GFR Glucose POC Capillary Glucose 142 H 167 H Calcium Total Bilirubin AST ALT Alkaline Phosphatase Total Protein Albumin Discharge Plan Discharge Attending physician on discharge: Desmond Torres Consulting providers: Rafael Gibson Discharging Clinician: Rafael Gibson Anticipated Discharge Date/Time: 06/11/25 11:03 Patient Disposition: SNF Activity: as tolerated Diet: heart healthy Discharge Instructions: Discharge disposition: [facility] Take medications as prescribed Monitor blood pressures Take caution while standing, rising, or moving Change positions slowly taking a break between each position change If you standing feel dizzy sit back down and take a break Encouraged to continue with yearly vaccinations Return to the emergency department if he developed sudden shortness of breath, chest pain, nausea, vomiting, upset stomach or intractable diarrhea Return to the emergency department if you develop fever greater than 101.5 Follow-up with the primary care physician within 1-2 weeks Thank you for [facility] for your healthcare needs Patient Instructions: Apixaban (By mouth), Heart Failure (GEN) Patient Language: Martiniquais Stand Alone Forms: General Discharge Information Follow-up/Referrals: Zach,Oswaldo Rodriguez MD [Primary Care Provider, Unknown] Discharge Medications: Continued buspirone 10 mg tablet 10 mg PO BID insulin aspart U-100 100 unit/mL (3 mL) insulin pen 15 unit SUBCUT TID ascorbic acid (vitamin C) [Vitamin C] 500 mg tablet 500 mg PO DAILY Eliquis 5 mg tablet 5 mg PO BID Gemtesa 75 mg tablet 75 mg PO DAILY metoprolol succinate 50 mg tablet extended release 24 hr 25 mg PO DAILY cyanocobalamin (vitamin B-12) [B-12 DOTS] 500 mcg tablet 500 mcg PO DAILY spironolactone 25 mg tablet 12.5 mg PO DAILY cefadroxil 500 mg capsule 1,000 mg PO Q12H cholecalciferol (vitamin D3) 125 mcg (5,000 unit) tablet 5,000 unit PO DAILY hydrocortisone 1 % Cream 1 applic topical Q12HR PRN (Reason: Itching) Qty: 10 0RF nortriptyline 10 mg Capsule 10 mg PO HS Qty: 30 0RF insulin glargine [Lantus U-100 Insulin] 100 unit/mL solution 15 unit subcut QHS Qty: 10 0RF lidocaine [Aspercreme (lidocaine)] 4 % adhesive patch,medicated 1 patch topical DAILY PRN (Reason: back pain. ) Qty: 30 0RF polyethylene glycol 3350 [Miralax] 17 gram powder in packet 17 g PO DAILY PRN (Reason: constipation) Qty: 30 0RF levothyroxine 75 mcg tablet 75 mcg PO QAM Qty: 30 0RF magnesium oxide 400 mg (241.3 mg magnesium) tablet 400 mg PO DAILY Qty: 30 0RF ferrous sulfate [FeroSul] 325 mg (65 mg iron) tablet 325 mg PO DAILY Qty: 30 0RF docusate sodium 100 mg capsule 100 mg PO BID Qty: 60 0RF omeprazole 20 mg capsule,delayed release(DR/EC) 20 mg PO DAILY Qty: 30 0RF hydroxyzine HCl 25 mg tablet 25 mg PO Q4H PRN (Reason: itching or anxiety.) Qty: 30 0RF albuterol sulfate 90 mcg/actuation HFA aerosol inhaler 2 puff INHALATION Q6H PRN (Reason: shortness of breath or wheezing) Qty: 2 0RF fluticasone propionate [Flonase Allergy Relief] 50 mcg/actuation spray,wood spension 1 spray intranasal DAILY PRN (Reason: allergy symptoms/Rhinitis.) Qty: 10 0RF Rx Instructions: administer into each nostril acetaminophen 500 mg capsule 500 mg PO Q6H PRN (Reason: pain (scale score 1-3) or fever.) Qty: 90 0RF escitalopram oxalate 10 mg tablet 10 mg PO DAILY Qty: 30 0RF Jardiance 10 mg tablet 10 mg PO DAILY Qty: 30 0RF sacubitril-valsartan [Entresto] 24-26 mg tablet 0.5 tablet PO BID Qty: 60 0RF Date of admission: 06/10/25 15:43 Primary Care Provider: Zach,Oswaldo Rodriguez Admitting Provider: Montserrat Pope Attending physician on admission: Montserrat Pope Condition: Stable Quality VTE Prophylaxis VTE prophylaxis: mechanical ordered and pharmacologic ordered
[2025-06-11 14:00] VITALS: BP 102/64; PULSE 98; RESP 12; TEMP 36.7; O2SAT 100
[2025-06-11] MEDS: INSULIN ASPART (*BKC) 100 UNITS/ML SUB-Q (17:41)
== END 2025-06-11 17:52 | DRG 948 ==
LOC: ANHED 06-08 03:14 → ANH2MED 06-08 04:06
PROVIDERS: Admitting Provider Internal Medicine; Emergency Provider Physician Assistant; PCP Family Medicine; Visit Provider Physician Assistant
DX: R53.81 Other malaise (principal); R53.1 Weakness; I11.0 Hypertensive heart disease with heart failure; I50.9 Heart failure, unspecified; I48.0 Paroxysmal atrial fibrillation; E03.9 Hypothyroidism, unspecified; K21.9 Gastro-esophageal reflux disease without esophagitis; N32.81 Overactive bladder; F79 Unspecified intellectual disabilities; Z79.4 Long term (current) use of insulin; Z79.02 Long term (current) use of antithrombotics/antiplatelets; Z95.810 Presence of automatic (implantable) cardiac defibrillator; Z79.01 Long term (current) use of anticoagulants
CPT/HCPCS: 36415; 36600; 70450; 80053; 81001; 82140; 82948; 83036; 83735; 84439; 84443; 84480; 85025; 93005; 96372; 96374; 96375; 97110; 97116; 97161; 97166; 97530; 97535; 99285; A9270; G0378; J1200; J1630; J1815; J2405; J7030

== ENCOUNTER 2025-07-21 14:44 | Inpatient (IN) | payer MEDICARE, MEDICAID, SELFPAY ==
--- OUTSIDE RECORDS SUMMARY | 2024-09-10 10:15 | XMS_ITS ---
Author Organization [facility] Address [address] [facility] [address] [place], [place] [id number] Care Team Providers Care Bridge Maintenance Worker Name Role Phone JEREMÍAS MAGANA Primary Care [...] Healthcare [address] [place], [place] [id number] 09/10/2024 JEREMÍAS MAGANA Plan Of Treatment Next Appt Details Provider Name:JEREMÍAS Mills, 08/01/2025 01:00:00 PM, [address] , [place], [place], [id number], Progress Notes * Daria RODRIGUEZOB:[birth year]19 (64 yo F)Acc No.[id number]:09/10/2024 Progress Notes Patient: Loretta NAM Provider: Erick Magana M.D. :1960 A ge:63 Y S ex:Female Date:09/10/2024 Address:[facility] [address] [place], [place] [id number] Subjective: * Chief Complaints: * 1 . [...] signature of WILL AWAIS MAGANA MD on 07/21/2025 at 04:26 PM CDT Sign off status: Pending * Provider: Erick Magana M.D. Date: 1 11/11/2023 Generated for Howard wang/Latoya/Raquel on: 04:26 PM CDT
--- OUTSIDE RECORDS SUMMARY | 2024-12-17 09:30 | XMS_ITS ---
Author Organization [facility] Address [address] [place], [place] [address] Care Team Providers Care Client Liaison Name Role Phone JEREMÍAS MAGANA Primary Care Provider REASON FOR VISIT 3 month f/u Encounters Encounter Location Date Provider Diagnosis [facility] [address] [facility] [address] [place], [place] [id number] 12/17/2024 JEREMÍAS MAGANA Plan Of Treatment Next Appt Details Provider Name:JEREMÍAS Mills, 08/01/2025 01:00:00 PM, [address], [place], [place], [phone], Progress Notes * Daria RODRIGUEZOB:[birth year] (64 yo F)Acc No.[id number]:12/17/2024 Progress Notes Patient: Loretta NAM Provider: Erick Magana M.D. :1960 A ge:63 Y S ex:Female Date:12/17/2024 Address:[address] [facility] Subjective: * Chief Complaints: * 1 . 3 month f/u. * Medical History: Objective: * Vitals: Assessment: Plan: * Treatment: * Billing Information: * Visit Code: * Procedure Codes: * Electronic signature of MARJORIE MAGANA MD on 07/21/2025 at 04:23 PM CDT Sign off status: Pending * Provider: Erick Magana M.D. Date: 0 12/17/2024 Generated for Howard wang/Latoya/Raquel on: 1 04:23 PM MAUREEN
--- OUTSIDE RECORDS SUMMARY | 2025-01-09 08:30 | XMS_ITS ---
Author Organization [facility] Address [address] [place], [place] [address] Care Team Providers Care Data Lead Name Role Phone JEREMÍAS MAGANA Primary Care Provider Encounters Encounter Location Date Provider Diagnosis [facility] [address] [facility] [address] [place], [place] [phone] 01/09/2025 JEREMÍAS MAGANA Plan Of Treatment Next Appt Details Provider Name:JEREMÍAS Mills, 08/01/2025 01:00:00 PM, [address], [address], [place], [place], [phone], Progress Notes * Daria RODRIGUEZOB:[birth year] (64 yo F)Acc No.[id number]:01/09/2025 Progress Notes Patient: Loretta NAM Provider: Erick Magana M.D. :1960 A ge:64 Y S ex:Female Date:01/09/2025 Address:[address] [facility] Subjective: * Chief Complaints: * * Medical History: Objective: * Vitals: Assessment: Plan: * Treatment: * Billing Information: * Visit Code: * Procedure Codes: * Electronic signature of MARJORIE MAGANA MD on 07/21/2025 at 04:23 PM CDT Sign off status: Pending * Provider: Erick Magana M.D. Date: 0 01/09/2025 Generated for Howard awng/Latoya/Sumeetitting on: 1 04:23 PM CDT
--- NOTE | ~2025-07-21 | XR_ITS ---
Examination: XR chest 1V portable Clinical History: SOB/CHF Comparison: 07/21/2025 Technique: Portable AP Findings: Cardiomegaly. Retrocardiac atelectasis and/or effusion. Mildly increased interstitial markings. Linear radiopaque foreign body right lower lobe pulmonary artery as before. No acute bony abnormality. IMPRESSION: 1. Left lower lobe atelectasis and/or pleural effusion. 2. Mild interstitial pulmonary edema. Reviewed, dictated and finalized at location R.
--- NOTE | ~2025-07-21 | CT_ITS ---
EXAMINATION: CT chest abdomen pelvis w con, 07/21/2025 17:30 CDT HISTORY: Abdominal pain distention, lung nodule COMPARISON: No comparisons available. TECHNIQUE: CT scan of the chest, abdomen and pelvis was performed with contrast Isovue 300, 92cc injected IV. One or more of the following dose reduction techniques were used: automated exposure control, adjustment of the mA and/or kV according to patient size, use of iterative reconstruction technique. Unless otherwise stated, incidental findings do not require dedicated follow up imaging FINDINGS: CT chest: No significant coronary calcification is present ([id number]) LUNGS: No tracheomalacia. No bronchiectasis. Minimal emphysematous changes. Motion artifact limits evaluation, mild pulmonary venous congestion. Scattered calcified granulomas. Small simple appearing pleural effusions most marked right side. The main pulmonary artery measures 4.4 cm, correlate for underlying pulmonary arterial hypertension. HEART AND PERICARDIUM: Moderate cardiomegaly. Small pericardial effusion. AORTA: Normal caliber aorta. MEDIASTINUM: Calcified mediastinal and hilar lymph nodes noted. THYROID: The thyroid is unremarkable. CT abdomen: LIVER: Cirrhotic changes of the liver with nodularity of the liver contours. The main portal vein is not well demonstrated on this exam. SPLEEN: Unremarkable, no splenomegaly. KIDNEYS: Right Kidney: Unremarkable. No calculi. No hydronephrosis. Left Kidney: Unremarkable. No calculi. No hydronephrosis ADRENAL GLANDS: Unremarkable. PANCREAS: Moderate pancreatic atrophy. GALLBLADDER/BILIARY: Postcholecystectomy. STOMACH AND ESOPHAGUS: Visualized stomach and esophagus within normal limits. BOWEL/MESENTERY: Moderate fecal content. No colitis or diverticulitis. Appendix not identified. Ill-defined stranding within the mesentery. No thickened or dilated loops of small bowel. RETROPERITONEUM: Unremarkable AORTA/VASCULATURE: Normal caliber aorta. FREE FLUID OR FREE AIR: Small amount of perihepatic free fluid. Minimal free fluid in the pelvis.. CT pelvis: SOLID ORGANS/REPRODUCTIVE: Unremarkable. BLADDER: Circumferential thickening of the bladder wall with small amount of air which may relate to recent catheterization. LYMPHADENOPATHY: No lymphadenopathy. OSSEOUS STRUCTURES: No acute osseous abnormality.No suspicious lesions. OVERLYING SOFT TISSUES: Moderate probable soft tissue anasarca noted. IMPRESSION: 1. Probable CHF. 2. Cirrhotic disease of the liver with small amount of probable ascites. 3. Probable cystitis. Reviewed, dictated and finalized at location P.
--- NOTE | ~2025-07-21 | XR_ITS ---
EXAMINATION: XR chest 1V portable COMPARISON: No comparisons available. HISTORY: Nausea and vomiting FINDINGS: Moderate pulmonary venous congestion. No pneumothorax. Moderate cardiomegaly. There is a left hilar nodule measuring 2.5 x 2.5 cm incompletely characterized. Bony thorax no acute abnormality. Miscellaneous: None Impression: CHF. Left lung nodule. CT chest with contrast recommended Reviewed, dictated and finalized at location P. Impression: CHF. Left lung nodule. CT chest with contrast recommended
[2025-07-21 14:49] VITALS: BP 119/69; PULSE 121; RESP 20; TEMP 36.4; O2SAT 100
--- NOTE | 2025-07-21 15:45 | ECG_ITS ---
Test Date: 2025-07-21 15:57:35 Measurements Intervals [place] Rate: 106 P: 0 FL: 0 QRS: 128 QRSD: 138 T: 9 QT: 387 QTc: 514 Interpretive Statements ATRIAL FIBRILLATION WITH RAPID VENTRICULAR RESPONSE LEFT BUNDLE BRANCH BLOCK BASELINE ARTIFACT- II, III, AVR, AVL, AVF, V1-V6 ABNORMAL ECG Compared to ECG 06/08/2025 13:32:19 HEART RATE HAS INCREASED Electronically Signed On 07-21-2025 16:41:20 CDT by Grabiel Caballero D.O.
[2025-07-21 16:06] LABS: Hematocrit 37.3 % (37.0-47.0); Hemoglobin 12.3 g/dL (12.0-15.0); Immature Granulocyte Percent A 0.5 % (0-0.5); Lymphocytes Absolute Auto 0.68 K/mm3 (0.9-3.2); Mean Corpuscular HGB Conc 33.0 g/dl (32-36); Mean Corpuscular Hemoglobin 33.6 pg (26-34); Mean Corpuscular Volume 101.9 fl (80-100); Nucleated Red Blood Cells Absolute Auto 0.000 K/mm3 (0.0-0.012); Nucleated Red Blood Cells Perc 0.0 % (0.0-0.2); Platelet Count Result 268 k/mm3 (150-375); Red Blood Count 3.66 M/mm3 (4.2-5.4); White Blood Count 4.1 K/mm3 (4.5-10.0)
[2025-07-21 16:17] LABS: INR 2.4; Prothrombin Time 25.5 Seconds (11.1-14.7)
[2025-07-21 16:18] LABS: Partial Thromboplastin Time 44.3 Seconds (22.3-36.8)
--- OUTSIDE RECORDS SUMMARY | 2025-07-21 16:18 | XMS_ITS | Encounter Summary ---
Author Organization [facility] Address [address] [place] [address] Phone Care Team Providers Care Customer Field Representative Name Role Phone Oswaldo Serrano MD Primary Care Provider [phone] Angel Crowe DPCiara Unavailable [phone] Mora Fritz Unavailable Unavailable Ok Jorge MD Unavailable Orlin Urbina APRN, PHOTOLITH OPERATOR Unavailable [phone] Reason for Visit * Reason Comments Medication Refill Encounter Details Date Type Department Care Team (Late st Contact Info) Description 12/16/2021 Refill [facility] - Family Medicine - [place] #2 [place] [address] Oswaldo Serrano MD #[address] [address] Medication Refill Social History Tobacco Use Types [...] COVID-19? No / Unsure 12/10/2021 3:06 PM HERPETOLOGIST documented as of this encounter Miscellaneous Notes [...] 90 days and meeting all other requirements ETOLOGIST documented in this encounter Plan of Treatment Upcoming Encounters Date Type Department Care Team (Late st Contact Info) Description 07/22/2025 2:30 PM CDT Telemedicine [facility] - Endocrinology [facility] #2 [place] [address] Ok Jorge MD #2 [facility] [address] [place] [address] 07/30/2025 2:45 PM CDT Office Visit [facility] PHYSICIAN [facility] UROLOG[facility] #2 [place] [address] Orlin Urbina, TELEVISION NEWS PHOTOGRAPHER, PHOTOLITH OPERATOR #2 [place] [address] 11/18/2025 2:30 PM HERPETOLOGIST Office Visit [facility] Family Medicine [facility] #2 [facility] [place] [place] [address] Oswaldo Serrano MD #2 [facility] [address] [place] [address] documented as of this encounter Visit Diagnoses Not on filedocumented in this encounter Additional Health Concerns Assessment Noted Time PHQ-9 Depression Total Score: 2 07/18/20 20 4:26 PM CDT documented as of this encounter Care Teams Customer Field Representative Relationship Specialty Start Date End Date Oswaldo Serrano MD #2 [facility] [address] [place] [address] PCP - General Family Medicine 05/19/17 Angel Crowe DPM #[address] [address] Consulting Physician Podiatry 06/16/17 Mora Fritz Behavioral Health Navigator 06/15/18 Ok Jorge MD #[address] [address] Consulting Physician Endocrinology 05/12/22 Orlin Urbina APRN, PHOTOLITH OPERATOR #2 [place] [address] Nurse Practitioner Advanced Practice Nurse 11/09/22 documented as of this encounter
--- OUTSIDE RECORDS SUMMARY | 2025-07-21 16:18 | XMS_ITS | Encounter Summary ---
Author Organization [facility] Address [address] [place] [address] Phone Care Team Providers Care Utilization Review Rn Name Role Phone Oswaldo Serrano MD Primary Care Provider [phone] Angel Crowe DPM Unavailable [phone] Mora Fritz Unavailable Unavailable Ok Jorge MD Unavailable Orlin Urbina APRN, OYSTER OPENER Unavailable [phone] Reason for Visit * Reason Comments Medication Refill Encounter Details Date Type Department Care Team (Late st Contact Info) Description 12/09/2021 Refill [facility] #2 [place] [address] Orlin Urbina APRN, OYSTER OPENER #2 [place] [address] Medication Refill Social History Tobacco Use Types [...] COVID-19? No / Unsure 12/10/2021 3:06 PM LABEL STAMPER documented as of this encounter Miscellaneous Notes * Telephone Encounter - Orlin Urbina APRN, CNP - 12/11/2021 12:52 PM LABEL STAMPER Patient needs follow-up for continued refills L STAMPER * Telephone Encounter - Peggy Parson RN [...] 10/27/21 Office Visit Orlin Urbina APRN, CNP [facility] Urology [place] 10/07/21 Office Visit [facility]aldo [facility] 07/28/21 [facility]medicine [facility] Office Visit Connor Yuan APRN, OYSTER OPENER [facility] 02/27/21 Office Visit Oswaldo Serrano [...] Ref Range Status 07/02/2021 60 >=60 Final L STAMPER documented in this encounter Plan of Treatment Upcoming Encounters Date Type Department Care Team (Late st Contact Info) Description 07/22/2025 2:30 PM CDT Telemedicine [facility] - Endocrinology [facility] #2 [place] [address] Ok Jorge MD #[address] [address] 07/30/2025 2:45 PM CDT Office Visit [facility] #2 [place] [address] Orlin Urbina APRN, OYSTER OPENER #2 [place] [address] 11/18/2025 2:30 PM LABEL STAMPER Office Visit [facility] - Family Medicine [facility] #2 [place] [address] Oswaldo Serrano MD #2 [facility] [address] [place] [address] documented as of this encounter Visit Diagnoses Diagnosis Nocturnal enuresis OAB (overactive bladder) Hypertonicity of bladder documented in this encounter Additional Health Concerns Assessment Noted Time PHQ-9 Depression Total Score: 2 07/18/20 20 4:26 PM CDT documented as of this encounter Care Teams Utilization Review Rn Relationship Specialty Start Date End Date Oswaldo Serrano MD #2 [facility] [address] [place] [address] PCP - General Family Medicine 05/19/17 Angel Crowe DPM #[address] [address] Consulting Physician Podiatry 06/16/17 Mora Fritz Behavioral Health Navigator 06/15/18 Ok Jorge MD #2 [facility] [address] [place] [address] Consulting Physician Endocrinology 05/12/22 Orlin Urbina APRN, OYSTER OPENER #2 [place] [address] Nurse Practitioner Advanced Practice Nurse 11/09/22 documented as of this encounter
[2025-07-21 16:19] LABS: Alanine Aminotransferase 32 U/L (6-35); Albumin Level 3.7 g/dL (3.5-5.1); Alkaline Phosphatase 416 U/L (38-126); Anion Gap 9 mmol/L (4-12); Aspartate Amino Transferase 73 U/L (14-36); Bilirubin,Total 3.7 mg/dL (0.2-1.3); Blood Urea Nitrogen 27 mg/dL (7-17); Calcium 9.3 mg/dL (8.4-10.2); Carbon Dioxide 19 mmol/L (22-30); Chloride 94 mmol/L (98-107); Estimated CRCL calculation 63 ml/min; Estimated Glomerular Filt Rate 57; Glucose 150 mg/dL (65-110); Lipase 33 U/L (23-300); Magnesium 2.2 mg/dL (1.6-2.3); Potassium 5.4 mmol/L (3.4-5.0); Sodium 122 mmol/L (137-145); Total Protein 7.5 g/dL (6.3-8.2)
--- OUTSIDE RECORDS SUMMARY | 2025-07-21 16:19 | XMS_ITS | Encounter Summary ---
Author Organization [facility] Address [address] [place] [address] Phone Care Team Providers Care Phlebotomist Name Role Phone Oswaldo Serrano MD Primary Care Provider [phone] Angel Crowe DPM Unavailable [phone] Mora Fritz Unavailable Unavailable Ok Jorge MD Unavailable Orlin Urbina APRN, ANCHOR TACKER Unavailable [phone] Reason for Visit * Reason Comments Medication Refill Encounter Details Date Type Department Care Team (Late st Contact Info) Description 01/15/2022 Refill [facility] #2 [place] [address] Orlin Urbina APRN, ANCHOR TACKER #2 [place] [address] Medication Refill Social History Tobacco Use Types [...] Hearn 10/27/21 Office Visit Orlin Urbina APRN, ANCHOR TACKER [facility] Urology [place] 10/07/21 Office Visit Oswaldo Serrano MD [facility] 07/28/21 Telemedicine Oswaldo Serrano MD [facility] 05/14/21 Office Visit Connor Yuan APRN, ANCHOR TACKER [facility] 02/27/21 Office Visit Oswaldo Serrano MD [facility] 02/16/21 Office Visit Oswaldo Serrano MD [facility] Showing recent visits within past [...] Info) Description 07/22/2025 2:30 PM CDT Telemedicine [facility] - Endocrinology [facility] #2 [place] [address] Ok Jorge MD #2 [facility] [address] [place] [address] 07/30/2025 2:45 PM CDT Office Visit [facility] #2 [place] [address] Orlin Urbina APRN, ANCHOR TACKER #2 [place] [address] 11/18/2025 2:30 PM MUSIC INSTRUCTOR Office Visit [facility] - Family Medicine [facility] #2 [place] [address] Oswaldo Serrano MD #2 [facility] [address] [place] [address] documented as of this encounter Visit Diagnoses Diagnosis Nocturnal enuresis OAB (overactive bladder) Hypertonicity of bladder documented in this encounter Additional Health Concerns Assessment Noted Time PHQ-9 Depression Total Score: 2 07/18/20 20 4:26 PM CDT documented as of this encounter Care Teams Phlebotomist Relationship Specialty Start Date End Date Oswaldo Serrano MD #2 [facility] [address] [place] [address] PCP - General Family Medicine 05/19/17 Angel Crowe DPM #2 [facility] [address] [place] [address] Consulting Physician Podiatry 06/16/17 Mora Fritz ND Behavioral Health Navigator 06/15/18 Ok Jorge MD #2 [facility] [address] [place] [address] Consulting Physician Endocrinology 05/12/22 Orlin Urbina, LPTA, ANCHOR TACKER #2 [place] [address] Nurse Practitioner Advanced Practice Nurse 11/09/22 documented as of this encounter
--- OUTSIDE RECORDS SUMMARY | 2025-07-21 16:19 | XMS_ITS | Encounter Summary ---
Author Organization [facility] Address [address] [place] [address] Phone Care Team Providers Care Tobacco Roller Name Role Phone Oswaldo Serrano MD Primary Care Provider [phone] Angel Crowe DPCiara Unavailable [phone] Mora Fritz Unavailable Unavailable Ok Jorge MD Unavailable Orlin Urbina APRN, CORPORATION OFFICER Unavailable [phone] Reason for Visit * Reason Comments Medication Refill Encounter Details Date Type Department Care Team (Late st Contact Info) Description 01/15/2022 Refill [facility] - [facility] Medicine - [place] #2 [place] [address] Oswaldo Serrano MD #[address] [address] Medication Refill Social History Tobacco Use Types [...] Info) Description 07/22/2025 2:30 PM CDT Telemedicine [facility] - Endocrinology [facility] #2 [place] [address] Ok Jorge MD #2 [facility] [address] [place] [address] 07/30/2025 2:45 PM CDT Office Visit [facility] #2 [place] [address] Orlin Urbina APRN, CORPORATION OFFICER #2 [facility] [place] [address] 11/18/2025 2:30 PM V BLOCK SAW OPERATOR Office Visit [facility] Family Medicine [facility] #2 [place] [address] Oswaldo Serrano MD #2 [facility] [address] [place] [address] documented as of this encounter Visit Diagnoses Not on filedocumented in this encounter Additional Health Concerns Assessment Noted Time PHQ-9 Depression Total Score: 2 07/18/20 20 4:26 PM CDT documented as of this encounter Care Teams Tobacco Roller Relationship Specialty Start Date End Date Oswaldo Serrano MD #2 [facility] [address] [place] [address] PCP - General Family Medicine 05/19/17 Angel Crowe DPM #[address] [place] [address] Consulting Physician Podiatry 06/16/[address] Behavioral Health Navigator 06/15/18 Ok Jorge MD #[address] [address] Consulting Physician Endocrinology 05/12/22 Orlin Urbina APRN, CORPORATION OFFICER #2 [place] [address] Nurse Practitioner Advanced Practice Nurse 11/09/22 documented as of this encounter
--- OUTSIDE RECORDS SUMMARY | 2025-07-21 16:20 | XMS_ITS | Encounter Summary ---
Author Organization [facility] Address [address] [place] [address] Phone Care Team Providers Care Chief Human Resources Officer Name Role Phone Oswaldo Serrano MD Primary Care Provider [phone] Angel Crowe DPM Unavailable [phone] Mora Fritz Unavailable Unavailable Ok Jorge MD Unavailable Orlin Urbina APRN, FRANCHISE DEVELOPMENT MANAGER Unavailable [phone] Reason for Visit * Reason Comments Medication Refill Encounter Details Date Type Department Care Team (Late st Contact Info) Description 01/21/2022 Refill [facility] #2 [place] [address] Orlin Urbina APRN, FRANCHISE DEVELOPMENT MANAGER #2 [place] [address] Medication Refill Social History Tobacco Use Types [...] Info) Description 07/22/2025 2:30 PM CDT Telemedicine [facility] - Endocrinology - [place] #[address] [place] [address] Ok Jorge MD #[address] [phone] 07/30/2025 2:45 PM CDT Office [facility] #2 [place] [address] Orlin Urbina APRN, FRANCHISE DEVELOPMENT MANAGER #2 [place] [address] 11/18/2025 2:30 PM HOTEL RECEPTIONIST [facility] #2 [place] [address] Oswaldo Serrano MD #2 [facility] [address] [place] [address] documented as of this encounter Visit Diagnoses Diagnosis Nocturnal enuresis OAB (overactive bladder) Hypertonicity of bladder documented in this encounter Additional Health Concerns Assessment Noted Time PHQ-9 Depression Total Score: 2 07/18/20 20 4:26 PM CDT documented as of this encounter Care Teams Chief Human Resources Officer Relationship Specialty Start Date End Date Oswaldo Serrano MD #[address] [address] PCP - General Family Medicine 05/19/17 Angel Crowe DPM #2 [facility] [address] [place] [address] Consulting Physician Podiatry 06/16/17 Mora Fritz OH Behavioral Health Navigator 06/15/18 Ok Jorge MD #2 [facility] [address] [place] [address] Consulting Physician Endocrinology 05/12/22 Orlin Urbina APRN, FRANCHISE DEVELOPMENT MANAGER #2 [place] [address] Nurse Practitioner Advanced Practice Nurse 11/09/22 documented as of this encounter
--- OUTSIDE RECORDS SUMMARY | 2025-07-21 16:20 | XMS_ITS | Encounter Summary ---
Author Organization [facility] Address [address] [place] [address] Phone Care Team Providers Care Engineer Exhauster Name Role Phone Oswaldo Serrano MD Primary Care Provider [phone] Angel Crowe DPM Unavailable [phone] Mora Fritz Unavailable Unavailable Ok Jorge MD Unavailable Orlin Urbina APRN, HIGHWALL DRILL OPERATOR Unavailable [phone] Reason for Visit * Reason Comments Medication Refill Encounter Details Date Type Department Care Team (Late st Contact Info) Description 01/19/2022 Refill [facility] #2 [place] [address] Orlin Urbina APRN, HIGHWALL DRILL OPERATOR #2 [place] [address] Medication Refill Social History Tobacco Use Types [...] Info) Description 07/22/2025 2:30 PM CDT Telemedicine [facility] - Endocrinology [facility] #2 [place] [address] Ok Jorge MD #[address] [address] 07/30/2025 2:45 PM CDT Office Visit [facility] #2 [place] [address] Orlin Urbina APRN, HIGHWALL DRILL OPERATOR #2 [place] [address] 11/18/2025 2:30 PM FAMILY READINESS SUPPORT ASSISTANT Office Visit [facility] - Family Medicine [facility] #2 [place] [address] Oswaldo Serrano MD #[address] [address] documented as of this encounter Visit Diagnoses Diagnosis Nocturnal enuresis OAB (overactive bladder) Hypertonicity of bladder documented in this encounter Additional Health Concerns Assessment Noted Time PHQ-9 Depression Total Score: 2 07/18/20 20 4:26 PM CDT documented as of this encounter Care Teams Engineer Exhauster Relationship Specialty Start Date End Date Oswaldo Serrano MD #2 [facility] [address] [place] [address] PCP - General Family Medicine 05/19/17 Angel Crowe DPM #2 [facility] [address] [place] [address] Consulting Physician Podiatry 06/16/17 Mora Fritz Behavioral Health Navigator 06/15/18 Ok Jorge MD #2 [facility] [address] [place] [address] Consulting Physician Endocrinology 05/12/22 Orlin Urbina APRN, HIGHWALL DRILL OPERATOR #2 [place] [address] Nurse Practitioner Advanced Practice Nurse 11/09/22 documented as of this encounter
--- OUTSIDE RECORDS SUMMARY | 2025-07-21 16:20 | XMS_ITS | Encounter Summary ---
Author Organization [facility] Address [address] [place] [address] Phone Care Team Providers Care Commercial Plumber Name Role Phone Oswaldo Serrano MD Primary Care Provider Angel Crowe DPM Unavailable [phone] Mora Fritz Unavailable Unavailable Ok Jorge MD Unavailable Orlin Urbina APRN, KNITTER MACHINE Unavailable [phone] Reason for Visit * Reason Comments Medication Refill Encounter Details Date Type Department Care Team (Late st Contact Info) Description 02/03/2022 Refill [facility] #[address] [place] [address] Oswaldo Serrano MD #[address] [address] Medication Refill Social History Tobacco Use Types [...] [place] 10/27/21 Office Visit Orlin Urbina APRN, KNITTER MACHINE [facility] 10/07/21 Office Visit Oswaldo Serrano MD [facility] 07/28/21 Telemedicine Oswaldo Serrano MD [facility] 05/14/21 Office Visit Connor Yuan APRN, KNITTER MACHINE [facility] 02/27/21 Office Visit Oswaldo Serrano MD [...] [place] 10/27/21 Office Visit Orlin Urbina APRN, KNITTER MACHINE [facility] Urology Dhiraj 10/07/21 Office Visit Oswaldo Serrano MD [facility] 07/28/21 Telemedicine Oswaldo Serrano MD [facility] 05/14/21 Office Visit Connor Yuan APRN, KNITTER MACHINE [facility] 02/27/21 Office Visit Oswaldo Serrano MD [...] Info) Description 07/22/2025 2:30 PM CDT Telemedicine [facility] - Endocrinology - [place] #2 [place] [address] Ok Jorge MD #[address] [address] 07/30/2025 2:45 PM CDT Office Visit [facility] #2 [place] [address] Orlin Urbina, PRODUCT/DEVICE TECHNOLOGIST, KNITTER MACHINE #2 [place] [address] 11/18/2025 2:30 PM CHIP UNLOADER Office Visit [facility] - Family [facility] #2 [place] [address] Oswaldo Serrano MD #[address] [address] documented as of this encounter Visit Diagnoses Not on filedocumented in this encounter Additional Health Concerns Assessment Noted Time PHQ-9 Depression Total Score: 2 07/18/20 20 4:26 PM CDT documented as of this encounter Care Teams Commercial Plumber Relationship Specialty Start Date End Date Oswaldo Serrano MD #[address] [address] PCP - General Family Medicine 05/19/17 Angel Crowe DPM #[address] [address] Consulting Physician Podiatry 06/16/17 Mora Fritz Behavioral Health Navigator 06/15/18 Ok Jorge MD #[address] [address] Consulting Physician Endocrinology 05/12/22 Orlin Urbina, PRODUCT/DEVICE TECHNOLOGIST, KNITTER MACHINE #2 [place] [address] Nurse Practitioner Advanced Practice Nurse 11/09/22 documented as of this encounter
--- OUTSIDE RECORDS SUMMARY | 2025-07-21 16:21 | XMS_ITS | Encounter Summary ---
Author Organization [facility] Address [address] [place] [address] Phone Care Team Providers Care Operation Specialist Name Role Phone Oswaldo Serrano MD Primary Care Provider [phone] Angel Crowe DPCiara Unavailable [phone] Mora Fritz Unavailable Unavailable Ok Jorge MD Unavailable Orlin Urbina APRN, TECHNICAL AIDE Unavailable [phone] Reason for Visit * Reason Comments Medication Refill Encounter Details Date Type Department Care Team (Late st Contact Info) Description 10/14/2021 Refill [facility] - [facility] Medicine - [place] #[address] [place] [address] Oswaldo Serrano MD #[address] [address] Medication Refill Social History Tobacco Use Types [...] COVID-19? No / Unsure 10/07/2021 3:45 PM DECORATIVE GREENS CUTTER documented as of this encounter Miscellaneous Notes [...] Hear[place] 05/14/21 Office Visit Connor Yuan APRN, TECHNICAL AIDE [facility] 02/27/21 Office Visit Oswaldo Serrano MD [facility] 02/16/21 Office Visit Oswaldo Serrano MD [facility] 01/14/21 Office Visit Connor Yuan APRN, TECHNICAL AIDE [facility] 12/19/20 Office Visit Oswaldo Serrano MD [facility] 12/18/20 Telemedicine Oswaldo Serrano MD [facility] Dhiraj 12/08/20 Telemedicine [facility] 11/07/20 Telemedicine Connor Yuan APRN, YUDI [facility] Showing recent visits within past 365 days and meeting all other requirements Future Appointments Date Type Provider Dept 01/05/22 Appointment Oswaldo Serrano MD [facility] Dhiraj Showing future appointments within next 90 days and meeting all other requirements RATIVE GREENS CUTTER documented in this encounter Plan of Treatment Upcoming Encounters Date Type Department Care Team (Late st Contact Info) Description 07/22/2025 2:30 PM CDT Telemedicine [facility] - Endocrinology - [place] #2 [place] [address] Ok Jorge MD #[address] [place] [address] 07/30/2025 2:45 PM CDT Office Visit [facility] #2 [place] [address] Orlin Urbina APRN, TECHNICAL AIDE #2 [place] [address] 11/18/2025 2:30 PM DECORATIVE GREENS CUTTER Office Visit [facility] - Family Medicine - [place] #2 [facility] [address] Oswaldo Serrano MD #2 [facility] [address] [place] [address] documented as of this encounter Visit Diagnoses Not on filedocumented in this encounter Additional Health Concerns Assessment Noted Time PHQ-9 Depression Total Score: 2 07/18/20 20 4:26 PM CDT documented as of this encounter Care Teams Operation Specialist Relationship Specialty Start Date End Date Oswaldo Serrano MD #2 [facility] [address] [place] [address] PCP - General Family Medicine 05/19/17 Angel Crowe DPM #2 [facility] [address] [place] [address] Consulting Physician Podiatry 06/16/17 Mora Fritz Behavioral Health Navigator 06/15/18 Ok Jorge MD #[address] [address] Consulting Physician Endocrinology 05/12/22 Orlin Urbina APRN, TECHNICAL AIDE #2 [place] [address] Nurse Practitioner Advanced Practice Nurse 11/09/22 documented as of this encounter
--- OUTSIDE RECORDS SUMMARY | 2025-07-21 16:21 | XMS_ITS | Encounter Summary ---
Author Organization [facility] Address [address] [place] [address] Phone Care Team Providers Care Endoscopy Support Specialist Name Role Phone Oswaldo Serrano MD Primary Care Provider [phone] Angel Crowe DPCiara Unavailable [phone] Mora Fritz Unavailable Unavailable Ok Jorge MD Unavailable Orlin Urbina APRN, UTILITY PERSON Unavailable [phone] Reason for Visit * Reason Comments Medication Refill Encounter Details Date Type Department Care Team (Late st Contact Info) Description 05/19/2022 Refill [facility] Family Medicine - [place] #[address] [place] [address] Oswaldo Serrano MD #[address] [address] Medication Refill Social History Tobacco Use Types [...] [facility] 07/28/21 Telemedicine Oswaldo Serrano MD [facility]aj Showing recent visits within past 365 days and meeting all other requirements Future Appointments No visits were found meeting these conditions. Showing future appointments within next 90 days and meeting all other requirements documented in this encounter Plan of Treatment Upcoming Encounters Date Type Department Care Team (Late st Contact Info) Description 07/22/2025 2:30 PM CDT Telemedicine [facility] - Endocrinology - [place]aj #2 [place] [address] Ok Jorge MD #[address] [address] 07/30/2025 2:45 PM CDT Office Visit [facility] #[address] [place] [address] Orlin Urbina, PLASTICS PROCESS HAND, UTILITY PERSON #2 [place] [address] 11/18/2025 2:30 PM SEED SALES MANAGER Office Visit [facility] - Family [facility] #2 [place] [address] Oswaldo Serrano MD #[address] [address] documented as of this encounter Visit Diagnoses Not on filedocumented in this encounter Additional Health Concerns Assessment Noted Time PHQ-9 Depression Total Score: 2 07/18/20 20 4:26 PM CDT documented as of this encounter Care Teams Endoscopy Support Specialist Relationship Specialty Start Date End Date Oswaldo Serrano MD #[address] [address] PCP - General Family Medicine 05/19/17 Angel Crowe DPM #[address] [address] Consulting Physician Podiatry 06/16/17 Mora Fritz [place] Behavioral Health Navigator 06/15/18 Ok Jorge MD #[address] [address] Consulting Physician Endocrinology 05/12/22 Orlin Urbina APRN, UTILITY PERSON #2 [place] [address] Nurse Practitioner Advanced Practice Nurse 11/09/22 documented as of this encounter
--- OUTSIDE RECORDS SUMMARY | 2025-07-21 16:21 | XMS_ITS | Encounter Summary ---
Author Organization [facility] Address [address] [place] [address] Phone Care Team Providers Care Pets [employer] Pet Supp[employer] Salesperson Name Role Phone Oswaldo Serrano MD Primary Care Provider [phone] Angel Crowe DPCiara Unavailable [phone] Mora Fritz Unavailable Unavailable Ok Jorge MD Unavailable Orlin Urbina APRN, BLOW MOLDING MACHINE TENDER Unavailable [phone] Reason for Visit * Reason Comments Medication Refill Encounter Details Date Type Department Care Team (Late st Contact Info) Description 02/17/2022 Refill [facility] - Family Medicine - [place] [address] [place] [address] Oswaldo Serrano MD #[address] [address] Medication Refill Social History Tobacco Use Types [...] Info) Description 07/22/2025 2:30 PM CDT Telemedicine [facility] Endocrinology [facility] #2 [facility] [place] [address] Ok Jorge MD #2 [facility] [address] [place] [address] 07/30/2025 2:45 PM CDT Office Visit [facility] #2 [facility] [place] [address] Orlin Urbina APRN, BLOW MOLDING MACHINE TENDER #2 [place] [address] 11/18/2025 2:30 PM DOCTOR OF RADIOLOGY Office Visit [facility] Family Medicine [facility] #2 [place] [address] Oswaldo Serrano MD #2 [facility] [address] [place] [address] documented as of this encounter Visit Diagnoses Not on filedocumented in this encounter Additional Health Concerns Assessment Noted Time PHQ-9 Depression Total Score: 2 07/18/20 20 4:26 PM CDT documented as of this encounter Care Teams Pets And Pet Supplies Salesperson Relationship Specialty Start Date End Date Oswaldo Serrano MD #[address] [address] PCP - General Family Medicine 05/19/17 Angel Crowe DPM #[address] [place] [address] Consulting Physician Podiatry 06/16/17 Mora Fritz [place] Behavioral Health Navigator 06/15/18 Ok Jorge MD #[address] [address] Consulting Physician Endocrinology 05/12/22 Orlin Urbina APRN, BLOW MOLDING MACHINE TENDER #2 [place] [address] Nurse Practitioner Advanced Practice Nurse 11/09/22 documented as of this encounter
--- OUTSIDE RECORDS SUMMARY | 2025-07-21 16:21 | XMS_ITS | Encounter Summary ---
Author Organization [facility] Address [address] [place] [address] Phone Care Team Providers Care Sales Engagement Manager Name Role Phone Oswaldo Serrano MD Primary Care Provider Angel Crowe DPM Unavailable [phone] Mora Fritz Unavailable Unavailable Ok Jorge MD Unavailable Orlin Urbina APRN, YUDI Unavailable [phone] Reason for Visit * Reason Comments Medication Refill Encounter Details Date Type Department Care Team (Late st Contact Info) Description 10/14/2021 Refill [facility] #[address] [place] [address] Edwar Romo MD #[address] [facility], [address] [address] Medication Refill Social History Tobacco Use Types [...] COVID-19? No / Unsure 10/07/2021 3:45 PM FLASK CLEANER documented as of this encounter Miscellaneous Notes * Telephone Encounter - Edwar Romo MD - 10/20/2021 11:28 AM CST Needs follow up appt before refilling medication. K CLEANER * Telephone Encounter - Peggy Parson RN [...] [facility] 05/14/21 Office Visit Connor Yuan, NURSE PRN, YUDI [facility] 02/27/21 Office Visit Oswaldo Serrano MD [facility] 02/16/21 Office Visit Oswaldo Serrano MD [facility] 01/14/21 Office Visit Connor Yuan APRN, YUDI [facility] 12/19/20 Office Visit Oswaldo Serrano MD [facility] 12/18/20 Telemedicine Oswaldo Serrano MD [facility] 12/08/20 Telemedicine Oswaldo Serrano MD [facility] 11/07/20 Telemedicine Connor Yuan APRN, [facility] recent visits within past 365 days and meeting all other requirements Future Appointments Date Type Provider Dept 01/05/22 Appointment Oswaldo Serrano MD [facility] Showing future appointments within next 90 days and meeting all other requirements K CLEANER documented in this encounter Plan of Treatment Upcoming Encounters Date Type Department Care Team (Late st Contact Info) Description 07/22/2025 2:30 PM CDT Telemedicine [facility] - Endocrinology - [place] #2 [place] [address] Ok Jorge MD #[address] [address] 07/30/2025 2:45 PM CDT Office Visit [facility] #2 [facility] [place] [address] Orlin Urbina APRN, EDUCATION DEPARTMENT CHAIR #2 [place] [address] 11/18/2025 2:30 PM FLASK CLEANER Office Visit [facility] - Family Medicine - [place] #2 [facility] [place] [address] Oswaldo Serrano MD #[address] [place] [address] documented as of this encounter Visit Diagnoses Diagnosis Nocturnal enuresis documented in this encounter Additional Health Concerns Assessment Noted Time PHQ-9 Depression Total Score: 2 07/18/20 20 4:26 PM CDT documented as of this encounter Care Teams Sales Engagement Manager Relationship Specialty Start Date End Date Oswaldo Serrano MD #2 [facility] [address] [place] [address] PCP - General Family Medicine 05/19/17 Angel Crowe DPM #2 [facility] [address] [place] [address] Consulting Physician Podiatry 06/16/17 Mora Fritz [place] Behavioral Health Navigator 06/15/18 Ok Jorge MD #[address] [address] Consulting Physician Endocrinology 05/12/22 Oriln Urbina APRN, EDUCATION DEPARTMENT CHAIR #2 [place] [address] Nurse Practitioner Advanced Practice Nurse 11/09/22 documented as of this encounter
--- OUTSIDE RECORDS SUMMARY | 2025-07-21 16:21 | XMS_ITS | Encounter Summary ---
Author Organization [facility] Address [address] [place] [address] Phone Care Team Providers Care Ssis Etl Developer Name Role Phone Oswaldo Serrano MD Primary Care Provider Angel Crowe DPM Unavailable [phone] Mora Fritz Unavailable Unavailable Ok Jorge MD Unavailable Orlin rUbina APRN, WELL SERVICING RIG OPERATOR Unavailable [phone] Reason for Visit * Reason Comments Medication Refill Encounter Details Date Type Department Care Team (Late st Contact Info) Description 01/26/2022 Refill [facility] #[address] [place] [address] Oswaldo Serrano MD #[address] [address] Medication Refill Social History Tobacco Use Types [...] [facility] 10/27/21 Office Visit Orlin Urbina APRN, WELL SERVICING RIG OPERATOR [facility] Urology [facility] 10/07/21 Office Visit Oswaldo Serrano MD [facility] 07/28/21 Telemedicine Oswaldo Serrano MD [facility] 05/14/21 Office Visit Connor Yuan APRN, WELL SERVICING RIG OPERATOR [facility] 02/27/21 Office Visit Oswaldo Serrano MD [facility] 02/16/21 Office Visit Oswaldo Serrano MD [facility] Showing recent visits within past 365 [...] [facility] - Endocrinology [facility] #2 [place] [address] Ok Jorge MD #[address] [phone] 07/30/2025 2:45 PM CDT Office Visit [facility] #2 [place] [address] Orlin Urbina APRN, WELL SERVICING RIG OPERATOR #2 [place] [address] 11/18/2025 2:30 PM CAN STACKER Office Visit [facility] - Family Medicine [facility] #2 [place] [address] Oswaldo Serrano MD #2 [facility] [address] [place] [address] documented as of this encounter Visit Diagnoses Diagnosis Nocturnal enuresis OAB (overactive bladder) Hypertonicity of bladder documented in this encounter Additional Health Concerns Assessment Noted Time PHQ-9 Depression Total Score: 2 07/18/20 20 4:26 PM CDT documented as of this encounter Care Teams Ssis Etl Developer Relationship Specialty Start Date End Date Oswaldo Serrano MD #2 [facility] [address] [place] [address] PCP - General Family Medicine 05/19/17 Angel Crowe DPM #2 [facility] [address] [place] [address] Consulting Physician Podiatry 06/16/17 Mora Fritz [place] Behavioral Health Navigator 06/15/18 Ok Jorge MD #2 [facility] [address] [place] [address] Consulting Physician Endocrinology 05/12/22 Orlin Urbina APRN, WELL SERVICING RIG OPERATOR #2 [place] [address] Nurse Practitioner Advanced Practice Nurse 11/09/22 documented as of this encounter
--- OUTSIDE RECORDS SUMMARY | 2025-07-21 16:21 | XMS_ITS | Encounter Summary ---
Author Organization [facility] Address [address] [place] [address] Phone Care Team Providers Care Machine Builder Name Role Phone Oswaldo Serrano MD Primary Care Provider Angel Crowe DPM Unavailable [phone] Mora Fritz Unavailable Unavailable Ok Jorge MD Unavailable Orlin Urbina APRN, YUDI Unavailable [phone] Reason for Visit * Reason Comments Medication Refill Encounter Details Date Type Department Care Team (Late st Contact Info) Description 10/28/2021 Refill [facility] #[address] [place] [address] Edwar Romo MD #[address] [facility], [address] [address] Medication Refill Social History Tobacco Use Types [...] COVID-19? No / Unsure 10/27/2021 3:19 PM STORAGE AND BACKUP ADMINISTRATOR documented as of this encounter Plan of Treatment Upcoming Encounters Date Type Department Care Team (Late st Contact Info) Description 07/22/2025 2:30 PM CDT Telemedicine [facility] - Endocrinology [facility] #2 [place] [address] Ok Jorge MD #[address] [phone] 07/30/2025 2:45 PM CDT Office Visit [facility] #2 [place] [address] Orlin Urbina APRN, TRANSLATOR #2 [place] [address] 11/18/2025 2:30 PM STORAGE AND BACKUP ADMINISTRATOR Office Visit [facility] Family Medicine [facility] #2 [place] [address] Oswaldo Serrano MD #[address] [address] documented as of this encounter Visit Diagnoses Diagnosis Nocturnal enuresis documented in this encounter Additional Health Concerns Assessment Noted Time PHQ-9 Depression Total Score: 2 07/18/20 20 4:26 PM CDT documented as of this encounter Care Teams Machine Builder Relationship Specialty Start Date End Date Oswaldo Serrano MD #2 [facility] [address] [place] [address] PCP - General Family Medicine 05/19/17 Angel Crowe DPM #2 [facility] [address] [place] [address] Consulting Physician Podiatry 06/16/17 Mora Fritz [place] Behavioral Health Navigator 06/15/18 Ok Jorge MD #2 [facility] [address] [place] [address] Consulting Physician Endocrinology 05/12/22 Orlin Urbina, CANE STRIPPER, TRANSLATOR #2 [place] [address] Nurse Practitioner Advanced Practice Nurse 11/09/22 documented as of this encounter
--- OUTSIDE RECORDS SUMMARY | 2025-07-21 16:21 | XMS_ITS | Encounter Summary ---
Author Organization [facility] Address [address] [place] [address] Phone Care Team Providers Care Marble Finisher Name Role Phone Oswaldo Serrano MD Primary Care Provider Angel Crowe DPCiara Unavailable [phone] Mora Fritz Unavailable Unavailable Ok Jorge MD Unavailable Orlin Urbina APRN, SALES AUDIT CLERK Unavailable [phone] Reason for Visit * Reason Comments Medication Refill Encounter Details Date Type Department Care Team (Late st Contact Info) Description 09/11/2021 Refill [facility] - Family Medicine - [employer] #[address] [place] [address] Oswaldo Serrano MD #[address] [address] Medication Refill Social History Tobacco Use Types [...] ago Acute bronchitis, unspecified organism [facility] - Connor Hutchinson APRN, YUDI 6 months ago [facility] Moreno MD 6 months ago [facility]aldo Moreno MD 8 months ago UTI symptoms [facility] [place] APRN, YUDI Upcoming Appointments Future Appointments In 3 weeks Oswaldo Serrano MD [facility] - Family Medicine - MARLI Hearn In 1 month Ok Jorge MD [facility] - Endocrinology - [facility] - Recent and Past Visits Recent Visits Date Type Provider Dept 07/28/21 Telemedicine Oswaldo Serrano MD [facility] 05/14/21 Office Visit Connor Yuan APRN, YUDI [place] 02/27/21 Office Visit Oswaldo Serrano MD [facility] 02/16/21 Office Visit Oswaldo Serrano, MD [facility] 01/14/21 Office Visit Connor Yuan APRN, YUDI [place] 12/19/20 Office Visit Oswaldo Serrano MD [facility] 12/18/20 Telemedicine Oswalod Serrano MD [facility] 12/08/20 Telemedicine Oswaldo [...] with SSRI for at least 6 months TIC SCIENTIST documented in this encounter Plan of Treatment Upcoming Encounters Date Type Department Care Team (Late st Contact Info) Description 07/22/2025 2:30 PM CDT Telemedicine [facility] - Endocrinology [facility] #2 [facility] [address] Ok Jorge MD #2 [facility] [address] [place] [address] 07/30/2025 2:45 PM CDT Office Visit [facility] #2 [facility] [address] Orlin Urbina APRN, SALES AUDIT CLERK #2 [place] [address] 11/18/2025 2:30 PM AQUATIC SCIENTIST Office Visit [facility] - Family Medicine [facility] #2 [place] [address] Oswaldo Serrano MD #2 [facility] [address] [place] [address] documented as of this encounter Visit Diagnoses Not on filedocumented in this encounter Additional Health Concerns Assessment Noted Time PHQ-9 Depression Total Score: 2 07/18/20 20 4:26 PM CDT documented as of this encounter Care Teams Marble Finisher Relationship Specialty Start Date End Date Oswaldo Serrano MD #2 [facility] [address] [place] [address] PCP - General Family Medicine 05/19/17 Angel Crowe DPM #2 [facility] [address] [place] [address] Consulting Physician Podiatry 06/16/17 Mora Fritz [place] Behavioral Health Navigator 06/15/18 Ok Jorge MD #2 [facility] [address] [place] [address] Consulting Physician Endocrinology 05/12/22 Orlin Urbina APRN, SALES AUDIT CLERK #2 [place] [address] Nurse Practitioner Advanced Practice Nurse 11/09/22 documented as of this encounter
--- OUTSIDE RECORDS SUMMARY | 2025-07-21 16:21 | XMS_ITS | Encounter Summary ---
Author Organization [facility] Address [address] [place] [address] Phone Care Team Providers Care Supervisor Counseling And Guidance Name Role Phone Oswaldo Serrano MD Primary Care Provider [phone] Angel Crowe DPM Unavailable [phone] Mora Fritz Unavailable Unavailable Ok Jorge MD Unavailable Orlin Urbina APRN, VACUUM CONDITIONER OPERATOR Unavailable [phone] Reason for Visit * Reason Comments Medication Refill Encounter Details Date Type Department Care Team (Late st Contact Info) Description 01/21/2022 Refill [facility] - Family Medicine - [place] #2 [place] [address] Connor Yuan APRN, VACUUM CONDITIONER OPERATOR #[address] [address] Medication Refill Social History Tobacco Use Types [...] message. Thanks! * Telephone Encounter - Kacie Soto RN - 01/22/2022 3:09 PM CDT Pharmacy [...] Info) Description 07/22/2025 2:30 PM CDT Telemedicine [facility] - Endocrinology [facility] #2 [place] [address] Ok Jorge MD #[address] [address] 07/30/2025 2:45 PM CDT Office Visit [facility] #2 [place] [address] Orlin Urbina APRN, VACUUM CONDITIONER OPERATOR #2 [place] [address] 11/18/2025 2:30 PM RN PEDIATRIC ICU Office Visit [facility] - Family Medicine [facility] #2 [place] [address] Oswaldo Serrano MD #[address] [address] documented as of this encounter Visit Diagnoses Diagnosis Chronic congestive heart failure, unspecified heart failure type documented in this encounter Additional Health Concerns Assessment Noted Time PHQ-9 Depression Total Score: 2 07/18/20 20 4:26 PM CDT documented as of this encounter Care Teams Supervisor Counseling And Guidance Relationship Specialty Start Date End Date Oswaldo Serrano MD #2 [facility] [address] [place] [address] PCP - General Family Medicine 05/19/17 Angel Crowe DPM #2 [facility] [address] [place] [address] Consulting Physician Podiatry 06/16/17 Mora Fritz [place] Behavioral Health Navigator 06/15/18 Ok Jorge MD #2 [facility] [address] [place] [address] Consulting Physician Endocrinology 05/12/22 Orlin Urbina, ARTIST CONSULTANT, VACUUM CONDITIONER OPERATOR #2 [place] [address] Nurse Practitioner Advanced Practice Nurse 11/09/22 documented as of this encounter
--- OUTSIDE RECORDS SUMMARY | 2025-07-21 16:21 | XMS_ITS | Encounter Summary ---
Author Organization [facility] Address [address] [place] [address] Phone Care Team Providers Care Quilting Machine Operator Name Role Phone Oswaldo Serrano MD Primary Care Provider [phone] Angel Crowe DPCiara Unavailable [phone] Mora Fritz Unavailable Unavailable Ok Jorge MD Unavailable Orlin Urbina APRN, DEBONE SUPERVISOR Unavailable [phone] Reason for Visit * Reason Onset Date Comments Advice Only 07/19/2025 Encounter Details Date Type Department Care Team (Late st Contact Info) Description 07/19/2025 Telephone [facility] [address] [place] [address] Oswaldo Serrano MD #[address] [address] Advice Only Social History Tobacco Use Types Packs/Day Years Used Date Smoking Tobacco: Never Smokeless Tobacco: Never Alcohol Use Standard Drinks/Week Comments No 0 (1 standard drink = 0.6 oz pur e alcohol) [facility] Utilities Answer Date Recorded In [...] attend chur ch or jewish services? Never 11/29/2024 Do you belong to [...] Total Score - Questions 1-9 2 10/11 [facility] Stumpy Point of Occupat ional Health - Occupational Stress [...] in a chcf (including now)? No 11/09/2023 Housing Stability Vital Sign Answer Charlie e Recorded In the last 12 months, was t here a time when you were not able to pay the mortgage or rent on time? No 11/29/2024 In the past 12 months, how m any times have you moved where you were living? 0 11/29/2024 At any time in the past 12 m [facility], were you homeless or living in a chcf (including now)? No 11/29/2024 Education Answer Date [...] Telephone Encounter - Oswaldo Serrano MD - 07/20/2025 2:05 AM CDT I have no clue. Please help me with this message. Thanks! * Telephone Encounter - Stephanie Yu - 07/19/2025 12:09 PM CDT Please call [facility] (relationship to patient other) back at primary phone number [phone] regarding above referenced patient. Secondary phone number is [phone] . Call is concerning A Agri Business Agent from [facility] is calling today in regards to checking the status of the form sent for the patient's orders on 07/03. [facility] states they are still needing the formed signed and faxed back to them. Patient's PCP is Oswaldo Serrano MD. Thank you. documented in this encounter Plan of Treatment Upcoming Encounters Date Type Department Care Team (Late st Contact Info) Description 07/22/2025 2:30 PM CDT Telemedicine [facility] Endocrin[facility] #2 [place] [address] Ok Jorge MD #[address] [place] [address] 07/30/2025 2:45 PM CDT Office Visit [facility] #2 [place] [address] Orlin Urbina APRN, DEBONE SUPERVISOR #2 [facility] [place] [place] [address] 11/18/2025 2:30 PM TEACHERS' AIDE Office Visit [facility] - Family Medicine [facility] #2 [place] [address] Oswaldo Serrano MD #[address] [place] [address] documented as of this encounter Visit Diagnoses Not on filedocumented in this encounter Additional Health Concerns Assessment Noted Time PHQ-9 Depression Total Score: 2 11/01/19 25 3:32 PM TEACHERS' AIDE documented as of this encounter Care Teams Quilting Machine Operator Relationship Specialty Start Date End Date Oswaldo Serrano MD #2 [facility] [address] [place] [address] PCP - General Family Medicine 05/19/17 Angel Crowe DPM #2 [facility] [address] [place] [address] Consulting Physician Podiatry 06/16/17 Mora Fritz [place] Behavioral Health Navigator 06/15/18 Ok Jorge MD #2 [facility] [address] [place] [address] Consulting Physician Endocrinology 05/12/22 Orlin Urbina APRN, DEBONE SUPERVISOR #2 [place] [address] Nurse Practitioner Advanced Practice Nurse 11/09/22 documented as of this encounter
--- OUTSIDE RECORDS SUMMARY | 2025-07-21 16:21 | XMS_ITS | Encounter Summary ---
Author Organization [facility] Address [address] [place] [address] Phone Care Team Providers Care Marine Gear Keeper Name Role Phone Oswaldo Serrano MD Primary Care Provider [phone] Angel Crowe DPM Unavailable [phone] Mora Fritz Unavailable Unavailable Ok Jorge MD Unavailable Orlin Urbina APRN, APPLICATION SYSTEMS ADMINISTRATOR Unavailable [phone] Reason for Visit * Reason Comments Medication Refill Encounter Details Date Type Department Care Team (Late st Contact Info) Description 05/10/2022 Refill [facility] - Endocrinology - [place] #2 [place] [address] Ok Jorge MD #[address] [address] Medication Refill Social History Tobacco [...] Info) Description 07/22/2025 2:30 PM CDT Telemedicine [facility] Medical [facility] - Endocrinology [facility] #2 [place] [address] Ok Jorge MD #[address] [address] 07/30/2025 2:45 PM CDT Office Visit [facility]IAN GROUP UROLOGY #2 [place] [address] Orlin Urbina APRN, APPLICATION SYSTEMS ADMINISTRATOR #2 [place] [address] 11/18/2025 2:30 PM JAVA TECHNICAL MANAGER Office Visit [facility] Medical [facility] - Family Medicine [facility] #2 [place] [address] Oswaldo Serrano MD #[address] [address] documented as of this encounter Visit Diagnoses Not on filedocumented in this encounter Additional Health Concerns Assessment Noted Time PHQ-9 Depression Total Score: 2 07/18/20 20 4:26 PM CDT documented as of this encounter Care Teams Marine Gear Keeper Relationship Specialty Start Date End Date Oswaldo Serrano MD #[address] [address] [address] PCP - General Family Medicine 05/19/17 Angel Crowe DPM [address] [address] Consulting Physician Podiatry 06/16/17 Mora Fritz MA Behavioral Health Navigator 06/15/18 Ok Jorge MD #[address] [address] Consulting Physician Endocrinology 05/12/22 Orlin Urbina APRN, APPLICATION SYSTEMS ADMINISTRATOR #2 [place] [address] Nurse Practitioner Advanced Practice Nurse 11/09/22 documented as of this encounter
--- OUTSIDE RECORDS SUMMARY | 2025-07-21 16:22 | XMS_ITS | Encounter Summary ---
Author Organization [facility] Address [address] [place] [address] Phone Care Team Providers Care Sales Training Coordinator Name Role Phone Oswaldo Serrano MD Primary Care Provider [phone] Angel Crowe DPM Unavailable [phone] Mora Fritz Unavailable Unavailable Ok Jorge MD Unavailable Orlin Urbina APRN, SMOKE CONTROL SUPERVISOR Unavailable [phone] Reason for Visit * Reason Comments Medication Refill Encounter Details Date Type Department Care Team (Late st Contact Info) Description 08/20/2020 Refill [facility] - Family Medicine - [place] #2 [place] [address] Connor Yuan APRN, SMOKE CONTROL SUPERVISOR #[address] [address] Medication Refill Social History Tobacco Use Types [...] COVID-19? No / Unsure 08/11/2020 2:55 PM CAUSTIC LOADER documented as of this encounter Miscellaneous Notes * Telephone Encounter - Connie Gamez RN - 08/20/2020 4:35 PM CST Request for this Med has been requested four times today. TIC LOADER documented in this encounter Plan of Treatment Upcoming Encounters Date Type Department Care Team (Late st Contact Info) Description 07/22/2025 2:30 PM CDT Telemedicine [facility] Endocrinology [facility] #2 [place] [address] Ok Jorge MD #[address] [address] 07/30/2025 2:45 PM CDT Office Visit [facility] GROUP UROLOGY #2 [place] [address] Orlin Urbina APRN, SMOKE CONTROL SUPERVISOR #2 [place] [address] 11/18/2025 2:30 PM CAUSTIC LOADER Office Visit [facility] Medical [facility] - Family Medicine [facility] #2 [place] [address] Oswaldo Serrano MD #2 [facility] [address] [place] [address] documented as of this encounter Visit Diagnoses Diagnosis Vitamin D deficiency Unspecified vitamin D deficiency documented in this encounter Additional Health Concerns Infection Onset Date Last Indicated Resolved Time COVID - 19 10/09/2020 10/09/2020 10/11/2020 5:17 AM CAUSTIC LOADER COVID - 19 11/12/2020 11/12/2020 11/16/2020 9:49 AM CAUSTIC LOADER COVID - 19 07/28/2021 07/29/2021 08/17/2021 12:1 6 AM CAUSTIC LOADER Assessment Noted Time PHQ-9 Depression Total Score: 2 07/18/20 4:26 PM CDT documented as of this encounter Care Teams Sales Training Coordinator Relationship Specialty Start Date End Date Oswaldo Serrano MD #2 [facility] [address] [place] [address] PCP - General Family Medicine 05/19/17 Angel Crowe DPM #2 [facility] [address] [place] [address] Consulting Physician Podiatry 06/16/17 Mora Fritz RI Behavioral Health Navigator 06/15/18 Ok Jorge MD #2 [facility] [address] [place] [address] Consulting Physician Endocrinology 05/12/22 Orlin Urbina APRN, SMOKE CONTROL SUPERVISOR #2 [place] [address] Nurse Practitioner Advanced Practice Nurse 11/09/22 documented as of this encounter
--- OUTSIDE RECORDS SUMMARY | 2025-07-21 16:22 | XMS_ITS | Encounter Summary ---
Author Organization [facility] Address [address] [place] [address] Phone Care Team Providers Care Laborer Concrete Paving Name Role Phone Oswaldo Serrano MD Primary Care Provider Angel Crowe DPM Unavailable [phone] Mora Fritz Unavailable Unavailable Ok Jorge MD Unavailable Orlin Urbina APRN, COMMUNICATIONS MANAGER Unavailable [phone] Reason for Visit * Reason Comments Medication Refill Encounter Details Date Type Department Care Team (Late st Contact Info) Description 09/17/2020 Refill [facility] - Family Medicine - [place] #2 [place] [address] Oswaldo Serrano MD #[address] [address] Medication Refill Social History Tobacco Use Types [...] COVID-19? No / Unsure 09/11/2020 1:18 PM GARMENT PARTS CUTTER MACHINE documented as of this encounter Miscellaneous Notes [...] type 2 diabetes mellitus (HCC) [facility] - Family Medicine - Connor Hutchinson APN, CNP 2 months ago Acute diarrhea [facility] Family Medicine - Connor Hutchinson APN, CNP 3 months ago Tick bite, initial encounter [facility] Family [facility] - Oswaldo Moreno MD 3 months ago Diarrhea, unspecified type [facility] Family Medicine - Oswaldo Moreno MD Upcoming Appointments Future Appointments In 1 month Ok Jorge MD [facility] Medical Group - Endocrinology - [place] [facility] OCCUPATIONAL [facility] RN - Recent and Past Visits Recent Visits Date Type Provider Dept 09/16/20 Telemedicine Oswaldo Serrano MD [facility] 07/18/20 Office Visit Connor Yuan APN, YUDI [facility] [place] 07/11/20 Telemedicine Connor Yuan APN, YUDI [facility] [place] 06/09/20 Office Visit Oswaldo Serrano MD [facility] [place] 05/29/20 Telemedicine Oswaldo Serrano, [facility] [place] 04/07/20 Office Visit Connor Yuan APN, YUDI [facility] [place] 03/18/20 Telemedicine Oswaldo Serrano, [facility] [place] 12/14/19 Office Visit Merry Elliott, AIDEN [facility] 08/28/19 Office Visit Oswaldo Serrano, [facility] [place] 06/22/19 Office Visit Connor Yuan APN, YUDI [facility] Showing recent visits within past 460 days with a meds authorizing provider and meeting all other requirements Future Appointments No visits were found meeting these conditions. Showing future appointments within next 90 days with a meds authorizing provider and meeting all other requirements ENT PARTS CUTTER MACHINE documented in this encounter Plan of Treatment Upcoming Encounters Date Type Department Care Team (Late st Contact Info) Description 07/22/2025 2:30 PM CDT Telemedicine [facility] Medical Group - Endocrinology - [place] #2 [place] [address] Ok Jorge MD #[address] [address] 07/30/2025 2:45 PM CDT Office Visit [facility] PHYSICIAN GROUP UROLOGY #2 [place] [address] Orlin Urbina BENEFITS COORDINATOR, COMMUNICATIONS MANAGER #2 [place] [address] 11/18/2025 2:30 PM GARMENT PARTS CUTTER MACHINE Office Visit [facility] - Family [facility] #2 [place] [address] Oswaldo Serrano MD #[address] [address] documented as of this encounter Visit Diagnoses Not on filedocumented in this encounter Additional Health Concerns Infection Onset Date Last Indicated Resolved Time COVID - 19 10/09/2020 10/09/2020 10/11/2020 5:17 AM GARMENT PARTS CUTTER MACHINE COVID - 19 11/12/2020 11/12/2020 11/16/2020 9:49 AM GARMENT PARTS CUTTER MACHINE COVID - 19 07/28/2021 07/29/2021 08/17/2021 12:1 6 AM GARMENT PARTS CUTTER MACHINE Assessment Noted Time PHQ-9 Depression Total Score: 2 07/18/20 20 4:26 PM CDT documented as of this encounter Care Teams Laborer Concrete Paving Relationship Specialty Start Date End Date Oswaldo Serrano MD #[address] [address] PCP - General Family Medicine 05/19/17 Angel Crowe DPM #[address] [address] Consulting Physician Podiatry 06/16/17 Mora Fritz Behavioral Health Navigator 06/15/18 Ok Jorge MD #[address] [address] Consulting Physician Endocrinology 05/12/22 Orlin Urbina, BENEFITS COORDINATOR, COMMUNICATIONS MANAGER #2 [place] [address] Nurse Practitioner Advanced Practice Nurse 11/09/22 documented as of this encounter
--- OUTSIDE RECORDS SUMMARY | 2025-07-21 16:22 | XMS_ITS | Encounter Summary ---
Author Organization [facility] Address [address] [place] [address] Phone Care Team Providers Care Clay Dry Press Operator Name Role Phone Oswaldo Serrano MD Primary Care Provider [phone] Angel Crowe DPCiara Unavailable [phone] Mora Fritz Unavailable Unavailable Ok Jorge MD Unavailable Orlin Urbina APRN, CHARTER AND TOUR BUS DRIVER Unavailable [phone] Reason for Visit * Reason Comments Medication Refill Encounter Details Date Type Department Care Team (Late st Contact Info) Description 06/16/2022 Refill [facility] - Family Medicine - [place] #2 [place] [address] Oswaldo Serrano MD #[address] [address] Medication Refill Social History Tobacco Use Types [...] [place] 01/05/22 Office Visit Oswaldo Serrano MD [facility] Showing recent visits within past [...] Info) Description 07/22/2025 2:30 PM CDT Telemedicine [facility] Endocrinology [facility] #2 [place] [address] Ok Jorge MD #[address] [place] [address] 07/30/2025 2:45 PM CDT Office Visit [facility] PHYSICIAN GROUP UROLOGY #2 [place] [address] Orlin Urbina, SENIOR MECHANICAL DESIGNER, CHARTER AND TOUR BUS DRIVER #2 [place] [address] 11/18/2025 2:30 PM VALUATION CONSULTANT Office Visit [facility] #2 [place] [address] Oswaldo Serrano MD #[address] [address] documented as of this encounter Visit Diagnoses Not on filedocumented in this encounter Additional Health Concerns Assessment Noted Time PHQ-9 Depression Total Score: 2 07/18/20 20 4:26 PM CDT documented as of this encounter Care Teams Clay Dry Press Operator Relationship Specialty Start Date End Date Oswaldo Serrano MD #[address] [address] PCP - General Family Medicine 05/19/17 Angel Crowe DPM #[address] [address] Consulting Physician Podiatry 06/16/17 Mora Fritz Behavioral Health Navigator 06/15/18 Ok Jorge MD #[address] [address] Consulting Physician Endocrinology 05/12/22 Orlin Urbina APRN, CHARTER AND TOUR BUS DRIVER #2 [place] [address] Nurse Practitioner Advanced Practice Nurse 11/09/22 documented as of this encounter
--- OUTSIDE RECORDS SUMMARY | 2025-07-21 16:22 | XMS_ITS | Encounter Summary ---
Author Organization [facility] Address [address] [place] [address] Phone Care Team Providers Care Superintendent Oil Field Drilling Name Role Phone Oswaldo Serrano MD Primary Care Provider [phone] Angel Crowe DPM Unavailable [phone] Mora Fritz Unavailable Unavailable Ok Jorge MD Unavailable Orlin Urbina APRN, PETROLEUM PLANT OPERATOR Unavailable [phone] Reason for Visit * Reason Comments Medication Refill Encounter Details Date Type Department Care Team (Late st Contact Info) Description 11/29/2024 Refill [facility] [place] [facility] UROLOGY #2 [place] [address] Orlin Urbina APRN, PETROLEUM PLANT OPERATOR #2 [place] [address] Medication Refill Social History Tobacco Use Types Packs/Day Years Used Date Smoking Tobacco: Never Smokeless Tobacco: Never Alcohol Use Standard Drinks/Week Comments No 0 (1 standard drink = 0.6 oz pur e alcohol) [facility] Utilities Answer Date Recorded In the [...] attend chur ch or pentecostal services? Never 11/29/2024 Do you belong to any clubs o r organizations such as sabianist groups, unions, fraternal or athletic groups, or [...] Total Score - Questions 1-9 2 10/11 [facility] [place] of Occupat ional Health - Occupational Stress [...] any time in the past 12 m [facility], were you homeless or [...] Assessment Author 0 11/29/2024 11:52 AM AMBER [employer] System Background * Q1: How often do you have a drink containing alcohol? Answer Date of Assessment Author Never 11/29/2024 11:52 AM SENIOR PRINCIPAL [employer] Background * Q2: How many drinks containing alcohol do you have on a typical day when you are drinking? Answer Date of Assessment Author Patient does not drink 11/29/2024 11:52 AM SENIOR PRINCIPAL [employer] System Background * Q3: How often do you have six or more drinks on one occasion? Answer Date of Assessment Author Never 11/29/2024 11:52 AM SENIOR PRINCIPAL [employer] Background documented as of this encounter Miscellaneous Notes * Telephone Encounter - Orlin Urbina APRN, CNP - 12/10/2024 10:18 AM SENIOR PRINCIPAL duplicate OR PRINCIPAL * Telephone Encounter - Stephanie Ortiz RN [...] 08/10/24 Office Visit Connor Yuan APRN, CNP [facility] 03/08/24 Telemedicine Oswaldo Serrano MD [facility] 02/23/24 Office Visit Oswaldo Serrano MD [facility] 01/24/24 Office Visit Orlin Urbina APRN, CNP [facility] Urology [facility] Showing recent visits within past 365 days and meeting all other requirements Today's Visits Date Type Provider Dept 11/29/24 Appointment [facility] Show[facility] today's visits and meeting all other requirements Future Appointments No visits were found meeting these conditions. Showing future appointments within next 90 days and meeting all other requirements OR PRINCIPAL documented in this encounter Plan of Treatment Upcoming Encounters Date Type Department Care Team (Late st Contact Info) Description 07/22/2025 2:30 PM CDT Telemedicine [facility] - Endocrinology - [place] #2 [place] [address] Ok Jorge MD #2 [facility] [address] [place] [address] 07/30/2025 2:45 PM CDT Office Visit [facility] [place] [facility] UROLOGY #2 [place] [address] Orlin Urbina APRN, PETROLEUM PLANT OPERATOR #2 [place] [address] 11/18/2025 2:30 PM SENIOR PRINCIPAL Office Visit [facility] - Family Medicine - [place] #2 [facility] [place] [address] Oswaldo Serrano MD #2 [facility] [address] [place] [address] documented as of this encounter Visit Diagnoses Not on filedocumented in this encounter Additional Health Concerns Assessment Noted Time PHQ-9 Depression Total Score: 2 11/01/19 3:32 PM SENIOR PRINCIPAL documented as of this encounter Care Teams Superintendent Oil Field Drilling Relationship Specialty Start Date End Date Oswaldo Serrano MD #2 [facility] [address] [place] [address] PCP - General Family Medicine 05/19/17 Angel Crowe DPM #[address] [address] Consulting Physician Podiatry 06/16/17 Mora Fritz [place] Behavioral Health Navigator 06/15/18 Ok Jorge MD #[address] [address] Consulting Physician Endocrinology 05/12/22 Orlin Urbina APRN, PETROLEUM PLANT OPERATOR #2 [place] [address] Nurse Practitioner Advanced Practice Nurse 11/09/22 documented as of this encounter
--- OUTSIDE RECORDS SUMMARY | 2025-07-21 16:22 | XMS_ITS | Encounter Summary ---
Author Organization [facility] Address [address] [place] [address] Phone Care Team Providers Care Welt Cutter Name Role Phone Oswaldo Serrano MD Primary Care Provider [phone] Angel Crowe DPCiara Unavailable [phone] Mora Fritz Unavailable Unavailable Ok Jorge MD Unavailable Orlin Urbina APRN, MIDDLE SCHOOL VOLLEYBALL COACH Unavailable [phone] Reason for Visit * Reason Comments Medication Refill Encounter Details Date Type Department Care Team (Late st Contact Info) Description 10/29/2020 Refill [facility] - Family Medicine - [place] #[address] [place] [address] Oswaldo Serrano MD #[address] [address] Medication Refill Social History Tobacco Use Types [...] No / Unsure 10/29/2020 2:20 PM INDUSTRIAL ENGINEERING documented as of this encounter Miscellaneous Notes [...] Outpatient Visits 2 weeks ago Flu-like symptoms [facility] - Oswaldo Moreno MD 1 month ago Chronic joint pain [facility] - Oswaldo Moreno MD 3 months ago Diabetic polyneuropathy associated with type 2 diabetes mellitus (HCC) [facility] - Connor Hutchinson APN, YUDI 3 months ago Acute diarrhea [facility] - Connor Hutchinson APN, YUDI 4 months ago Tick bite, initial encounter [facility] - Oswaldo Moreno MD Upcoming Appointments Future Appointments Today Carson Michel MD [facility] PHYSICIAN GROUP UROLOGY, [facility] In 1 week Ok Jorge MD [facility] Medical [facility] - Endocrinology - [place], [facility] In 1 month Oswaldo Serrano MD [facility] Medical [facility] - Family Medicine [facility], [facility] 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 and 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 Visits Recent Visits Date Type Provider Dept 10/09/20 Office Visit Oswaldo Serrano MD [facility] [place] 09/16/20 Telemedicine Oswaldo Serrano MD [facility] [place] 07/18/20 Office Visit Connor Yuan APN, MIDDLE SCHOOL VOLLEYBALL COACH [facility] [place] 07/11/20 Telemedicine Connor Yuan APN, MIDDLE SCHOOL VOLLEYBALL COACH [facility] [place] 06/09/20 Office Visit Oswaldo Serrano MD [facility] [place] 05/29/20 Telemedicine Oswaldo Serrano MD [facility] [place] 04/07/20 Office Visit Connor Yuan APN, MIDDLE SCHOOL VOLLEYBALL COACH [facility] [place] 03/18/20 Telemedicine Oswaldo Serrano MD [facility] [place] 12/14/19 Office Visit Merry Elliott, [facility] [place] 08/28/19 Office Visit Oswaldo Serrano MD [facility] [place] Showing recent visits within past 460 days with a meds authorizing provider and meeting all other requirements Future Appointments Date Type Provider Dept 12/08/20 Appointment Oswaldo Serrano MD [facility] [place] Showing future appointments within next 90 days with a meds authorizing provider and meeting all other requirements STRIAL ENGINEERING documented in this encounter Plan of Treatment Upcoming Encounters Date Type Department Care Team (Late st Contact Info) Description 07/22/2025 2:30 PM CDT Telemedicine [facility] - Endocrinology - [place] #2 [place] [address] Ok Jorge MD [address] [address] 07/30/2025 2:45 PM CDT Office Visit [facility] PHYSICIAN GROUP UROLOGY #2 [place] [address] Orlin Urbina, MANAGING MANAGER, MIDDLE SCHOOL VOLLEYBALL COACH #2 [place] [address] 11/18/2025 2:30 PM INDUSTRIAL ENGINEERING Office Visit [facility] Medical Group - Family Medicine [facility] #2 [place] [address] Oswaldo Serrano MD #[address] [address] documented as of this encounter Visit Diagnoses Not on filedocumented in this encounter Additional Health Concerns Infection Onset Date Last Indicated Resolved Time COVID - 19 11/12/2020 11/12/2020 11/16/2020 9:49 AM INDUSTRIAL ENGINEERING COVID - 19 07/28/2021 07/29/2021 08/17/2021 12:1 6 AM INDUSTRIAL ENGINEERING Assessment Noted Time PHQ-9 Depression Total Score: 2 07/18/20 20 4:26 PM CDT documented as of this encounter Care Teams Welt Cutter Relationship Specialty Start Date End Date Oswaldo Serrano MD #[address] [address] PCP - General Family Medicine 05/19/17 Angel Crowe DPM #2 [facility] [address] [place] [address] Consulting Physician Podiatry 06/16/17 Mora Fritz Behavioral Health Navigator 06/15/18 Ok Jorge MD #[address] [address] Consulting Physician Endocrinology 05/12/22 rOlin Urbina, MANAGING MANAGER, MIDDLE SCHOOL VOLLEYBALL COACH #2 [place] [address] Nurse Practitioner Advanced Practice Nurse 11/09/22 documented as of this encounter
--- OUTSIDE RECORDS SUMMARY | 2025-07-21 16:22 | XMS_ITS | Encounter Summary ---
Author Organization [facility] Address [address] [place] [address] Phone Care Team Providers Care Director Career Services Name Role Phone Oswaldo Serrano MD Primary Care Provider [phone] Angel Crowe DPM Unavailable [phone] Mora Fritz Unavailable Unavailable Ok Jorge MD Unavailable Orlin Urbina APRN, BRAKE ENGINEER Unavailable [phone] Reason for Visit * Reason Comments Medication Refill Encounter Details Date Type Department Care Team (Late st Contact Info) Description 07/31/2020 Refill [facility] - Family Medicine - [place] [address] [place] [address] Connor Yuan APRN, BRAKE ENGINEER [address] [address] Medication Refill Social History Tobacco Use Types [...] Miscellaneous Notes * Telephone Encounter - Debi Anderson RN - 08/01/2020 9:55 AM CDT VITAMIN D, 25 HYDROXY TOTAL Order: [id number] Status: Final result ?Visible to patient: Yes ([employer]) Dx: Vitamin D deficiency Ref Range & Units 3mo ago 2yr ago 3yr ago VITAMIN D, 25 HYDROX >=30 ng/mL 27Low 23Low 14Low Resulting Agency [facility] April 08, 2020 ? 7:17 AM Connor Yuan APN, YUDI routed this conversation to [facility] Nurse Claridge Connor Yuan APN, YUDI ?? 7:16 AM Note Please call patient POA and let her know that her vitamin D was low. Will send over 3 months worth of prescription therapy and then recheck. Orders entered. [employer] message sent to patient to have vitamin D re checked. Has active order. documented in this encounter Plan of Treatment Upcoming Encounters Date Type Department Care Team (Late st Contact Info) Description 07/22/2025 2:30 PM CDT Telemedicine [facility] - Endocrinology - [place] [address] [place] [address] Ok Jorge MD [address] [address] 07/30/2025 2:45 PM CDT Office Visit [facility] [address] [place] [address] Orlin Urbina APRN, BRAKE ENGINEER [address] [place] [address] 11/18/2025 2:30 PM GOAT HERDER Office Visit [facility] - Family [facility] [address] [place] [address] Oswaldo Serrano MD [address] [address] documented as of this encounter Visit Diagnoses Diagnosis Vitamin D deficiency Unspecified vitamin D deficiency documented in this encounter Additional Health Concerns Infection Onset Date Last Indicated Resolved Time COVID - 19 10/09/2020 10/09/2020 10/11/2020 5:17 AM GOAT HERDER COVID - 19 11/12/2020 11/12/2020 11/16/2020 9:49 AM GOAT HERDER COVID - 19 07/28/2021 07/29/2021 08/17/2021 12:1 6 AM GOAT HERDER Assessment Noted Time PHQ-9 Depression Total Score: 2 07/18/20 20 4:26 PM CDT documented as of this encounter Care Teams Director Career Services Relationship Specialty Start Date End Date Oswaldo Serrano MD #[address] [address] PCP - General Family Medicine 05/19/17 Angel Crowe DPM #[address] [address] Consulting Physician Podiatry 06/16/17 Mora Fritz [facility] Navigator 06/15/18 Ok Jorge MD #[address] [address] Consulting Physician Endocrinology 05/12/22 Orlin Urbina, BURNER OPERATOR, BRAKE ENGINEER [address] [place] [address] Nurse Practitioner Advanced Practice Nurse 11/09/22 documented as of this encounter
--- OUTSIDE RECORDS SUMMARY | 2025-07-21 16:23 | XMS_ITS | Data Portability ---
Author Organization [place] [facility] [employer], Main Office Address [address] [place] [address] Assessment Encounter Date Assessment Date Assessment LastModified by Organization Details LastModified Time 11/16/2023 11/16/2023 Assessment: Very severe OSAHS, AHI = 46 PLMD Plan: The following were reviewed and explained to the patient: primary care/referral note [facility] home sleep study 07/09/22 AHI = 46 [facility] titration sleep study 10/30/23 Resp[employer]ics small DreamWear [...] carrier. Patient will setup an appointment with [facility] for supplies and pressure adjustments. A [...] were reviewed and explained to the patient: [facility] home sleep study 07/09/22 AHI = 46 [facility] titration sleep study 10/30/23 [employer]ics small DreamWear [...] carrier. Patient will setup an appointment with [facility] for supplies and pressure adjustments. A [...] were reviewed and explained to the patient: [facility] home sleep study 07/09/22 AHI = 46 [facility] titration sleep study 10/30/23 [employer]ics small DreamWear nasal mask @ 14 cmH2O Ferritin 11/16/23 41 ng/mL Hgb 11/16/23 16.4 gm% Hct 11/16/23 48.1% BUN 02/07/24 24 mg% Alpha tocopherol 11/16/23 8.5 mg/L [...] care store. Patient will change to an [id number] mask. Educated the patient on problems and [...] carrier. Patient will setup an appointment with [facility] for supplies and pressure adjustments. A [...] were reviewed and explained to the patient: [facility] home sleep study 07/09/22 AHI = 46 [facility] titration sleep study 10/30/23 Respironics small DreamWear [...] care store. Patient will change to an [id number] mask. Educated the patient on problems and [...] carrier. Patient will setup an appointment with [facility] for supplies and pressure adjustments. A [...] months, November 2024 Not available 09/11/2024 18:06:16 05/02/2025 05/02/2025 Assessment: Iron deficiency Vit E deficiency Erythrocytosis Very severe OSAHS, AHI = 46 Plan: The following were reviewed and explained to the patient: [facility] home sleep study 07/09/22 AHI = 46 [facility] titration sleep study 10/30/23 Resp[employer]ics small DreamWear nasal mask @ 14 cmH2O BUN 11/16/23 24 mg% Hgb 11/16/23 16.4 gm% Hct 11/16/23 48.1% Ferritin 11/16/23 41 ng/mL Ferritin 08/30/24 62 ng/mL Ferritin 05/02/25 86 ng/mL Alpha tocopherol 11/16/23 8.5 mg/L Alpha tocopherol 08/30/24 7.9 mg/L Alpha tocopherol 05/02/25 11.5 mg/L Gamma tocopherol 11/16/23 2.6 mg/L Gamma tocopherol 08/30/24 1.6 mg/L Gamma tocopherol 05/02/25 2.0 mg/L Elevation in periodic limb movement index [...] care store. Patient will change to an [id number] mask. Educated the patient on problems and [...] carrier. Patient will setup an appointment with [facility] for supplies and pressure adjustments. A [...] PCP for further management. Follow-up: 3 months, July 2025 [facility]5 Not available 05/06/2025 14:23:27 Plan of Treatment Reminders Order Date Submit Date Provider Last Modified By Organization Details Last Modified Time Details Appointments Any 15 2024 02:30P Ciara Hernandez MD Not available Not available Not available Lab ferritin, serum or plasma 2024 025 [facility], [address] [place], [address], 07/18/2025 04:16:31 vitamin E, serum 2024 025 [facility], [address] [place], [address], 07/18/2025 04:16:31 ferritin, serum or plasma 2023 025 [facility] Lab, [address] [place], [address], 12/12/2024 09:05:29 vitamin E, serum 2023 025 [facility], [address] [place], [address], 12/12/2024 09:05:29 ferritin, serum or plasma [address] - Outpatient Lab, [address] [place], [address], 08/22/2024 10:55:53 vitamin E, serum 2023 024 [email or web address] 2 [facility] - Outpatient Lab, [address] [place], [address], 08/22/2024 10:55:53 ferritin, serum or plasma 2023 024 [email or web address] 5 [facility] - Outpatient Lab, [address] [place], [address], 03/07/2024 09:26:38 vitamin E, serum 2023 024 [email or web address] 5 [facility] - Outpatient Lab, [address] [place], [address], 03/07/2024 09:26:38 iron + TIBC + ferritin, serum 2023 024 [facility] (Lab), [address] [place], [address], 11/17/2023 18:22:12 folate, RBC 2023 024 [facility] (Lab), [address] [place], [address], 11/30/2023 05:13:29 vitamin B12, serum 2023 024 [facility] (Lab), [address] [place], [address], 11/17/2023 18:22:12 ESR (erythroc yte sedimenta tion rate), blood 2023 024 [facility] (Lab), [address] [place], [address], 11/17/2023 18:22:12 hemoglobi n + hematocri t, blood 2023 024 [email or web address] 5 [facility] (Lab), [address] [place], [address], 02/21/2024 11:05:08 bun (blood urea nitrogen) , serum or plasma 2023 024 [email or web address] 5 [facility] (Lab), [address] [place], [address], 02/21/2024 11:05:08 creatinin e, serum or plasma 2023 [email or web address] [place] [address] (Lab), [address] [place], [address], 02/21/2024 11:05:08 magnesium , serum or plasma 2023 [email or web address] [place] [address] (Lab), [address] [place], [address], 02/21/2024 11:05:08 vitamin E, serum 2023 024 [facility] (Lab), [address] [place], [address], 11/30/2023 05:13:29 Referral None recorded. Procedures None recorded. Surgeries None recorded. Imaging None recorded. Medication Orders Vitamin C 500 mg tablet 2024 025 [facility] #[id number], [address], [place], [place], [id number], 05/02/2025 14:55:20 ferrous sulfate 325 mg (65 mg iron) tablet 2024 025 [facility] #99787, [address], [place], [place], [id number], 05/02/2025 14:55:16 vitamin E (dl, acetate) 90 mg (200 unit) capsule 2024 025 [facility] #10549, [address], [place], [place], [id number], 05/02/2025 14:55:16 Vitamin C 500 mg tablet 2023 024 [facility] #36675, [address], [id number], 08/30/2024 15:41:27 ferrous sulfate 325 mg (65 mg iron) tablet [address] [facility]92598, [address], [place], [id number], 05/02/2025 14:46:07 vitamin E (dl, acetate) 90 mg (200 unit) capsule 2023 024 [facility] #04369, [address], [place], [id number], 08/30/2024 15:41:27 Vitamin C 500 mg tablet 2023 024 [facility] #99717, [address], [id number], 02/29/2024 15:15:40 ferrous sulfate 325 mg (65 mg iron) tablet [address] [facility] #39682, [address], [place], [id number], 05/02/2025 14:46:07 vitamin E (dl, acetate) 90 mg (200 unit) capsule 2023 024 [facility] #85050, [address], [place], [id number], 02/29/2024 15:15:42 Vitamin C 500 mg tablet 2023 024 [facility] #11951, [address], [place], [id number], 12/27/2023 12:51:34 ferrous sulfate 325 mg (65 mg iron) tablet 2023 024 [facility] #07209, [address], [place], [place], [id number], 05/02/2025 14:46:07 vitamin E (dl, acetate) 90 mg (200 unit) capsule 2023 024 [facility] #22569, [address], [place], [place], [id number], 12/27/2023 12:51:36 Patient TargetsNo targets recorded. Patient InstructionsNo [...] Address Organization Details Recorded Time Hypercholeste rolemia 54095899 Active Toro Hernandez MD [address], [facility] [employer], [place], [address] , [employer] [facility] 15:39:37 Depressive disorder 20357355 Active Toro Hernandez MD [address], [address], [place], [address] , [employer] 5 15:39:41 Arthritis [id number] Dane Hernandez MD [address], [address], [place], [address] , [employer] 5 15:39:42 Hypertensive disorder 22021305 Dane Hernandez MD [address], [employer] [employer], [place], [address] , [employer] 5 15:39:36 Anxiety 71951133 Active Not Available [facility] 3 06:56:31 Diabetes mellitus 12392545 Active Toro Hernandez MD [address], [address], [place], [address] , [employer] [facility] 15:39:39 Nocturnal enuresis 0229422 Active Toro Hernandez MD [address], [address], [place], [address] , [employer] 15:39:33 Obstructive sleep apnea syndrome 09112975 Active 2023 Toro Hernandez MD [address], [address], [place], [address] , [facility] 5 15:39:31 Periodic limb movement disorder 406881074 Active 2023 Troo Hernandez MD [address], [address], [place], [address] , [employer] 5 15:39:29 Vitamin E deficiency 16200930 Active 2023 Toro Hernandez MD [address], [address], [place], [address] , [facility] 5 15:39:27 Iron deficiency 77467042 Active 2023 Toro Hernandez MD [address], [address], [place], [address] , [facility] 5 15:39:34 Notes:Medical History: Delay ed sleep phase syndrome [...] AICD pocket refashioning 2018 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 Procedures Surgical History Date Name Laterality Status Provider Name and Address Organization Details Recorded Time cholecystectomy completed Fidelia Henderson MA [facility] 11/16/2023 14:50:38 Appendectomy completed Fidelia Henderson MA [facility] 11/16/2023 14:50:56 fluoroscopy guided percutaneous transluminal angioplasty of bilateral iliac arteries and insertion of bilateral iliac artery stents with contrast completed Fidelia Henderson MA [facility] 11/16/2023 14:51:15 Imaging Results None recorded. Procedure Notes None recorded. Medical Equipment None Reported. Allergies Allergen ID Allergen Name Allergen Category Reaction Reaction Severity Criticality Documentation Date Start Date Code Code System Note Provider Name and Address Organization Details Recorded Time 49828 Substance with sulfonami de structure and antibacte rial mechanism of action (substanc e) medicatio n Not available Not available Not available 11/16/2023 [id number] SNOMED Fidelia Henderson MA [facility] 14:40:52 Medications Name Sig Start Date Stop [...] completed Not Available Not Available Not Available doxycycline hyclate 100 mg capsule TAKE 1 CAPSULE BY MOUTH TWICE DAILY FOR 10 DAYS 04/30 completed Not Available Not Available Not Available carvedilol 12.5 mg tablet 11/16 completed Not Available Not Available Not Available lidocaine 4 % topical patch 08/30 completed Not Available Not Available Not Available Vitamin C 500 mg tablet TAKE 1 TABLET BY MOUTH EVERY DAY active Not Available Not Available No t Available polyethylen e glycol 3350 17 gram oral powder packet TAKE 1 PACKET ORALLY DIRECTED EVERY DAY NEEDED FOR CONSTIPAT ION 05/02 completed Not Available Not Available Not Available fluconazole 150 mg tablet TAKE 1 TABLET BY MOUTH 1 TIME FOR 1 DOSE 05/02 completed Not Available Not Available Not Available metoprolol succinate ER 50 mg tablet,exte nded release 24 hr TAKE 2 TABLETS BY MOUTH DAILY active Not Available Not Available No t Available hydrocodone 5 mg-acetamin ophen 325 mg tablet 11/16 completed Not Available Not Available Not Available ondansetron HCl 4 mg tablet TAKE 1 TABLET BY MOUTH EVERY 6 HOURS NEEDED FOR NAUSEA 08/30 completed Not Available Not Available Not Available metoprolol succinate ER 100 mg tablet,exte nded release 24 hr TAKE 1 TABLET BY MOUTH DAILY 05/02 completed Not Available Not Available Not Available lidocaine 4 % topical cream active Not Available Not Available Not Available midodrine 5 mg tablet TAKE 1 TABLET BY MOUTH TWICE DAILY NEEDED 05/02 completed Not Available Not Available Not Available ciprofloxac in 500 mg tablet 11/01 completed Not Available Not Available Not Available tramadol 50 mg tablet 11/16 completed Not Available Not Available Not Available acetaminoph en 500 mg tablet TAKE 1 TABLET BY MOUTH EVERY 6 HOURS NEEDED FOR PAIN 05/02 completed Not Available Not Available Not Available spironolact one 25 mg tablet TAKE 1 TABLET BY MOUTH DAILY active Not Available Not Available No t Available simvastatin 40 mg tablet 11/01 completed Not Available Not Available Not Available levothyroxi ne 75 mcg tablet TAKE 1 TABLET BY MOUTH EVERY MORNING active Not Available Not Available No t Available cefadroxil 500 mg capsule Take 2 capsules every day by oral route. 05/02 completed Not Available Not Available Not Available amoxicillin 875 mg tablet 11/01 completed Not Available Not Available Not Available potassium chloride ER 20 mEq tablet,exte nded release(par t/cryst) TAKE 1 TABLET BY MOUTH DAILY 08/30 completed Not Available Not Available Not Available magnesium oxide 400 mg (241.3 mg magnesium) tablet TAKE 1 TABLET BY MOUTH DAILY active Not Available Not Available No t Available lorazepam 0.5 mg tablet TAKE 1 TABLET BY MOUTH EVERY 8 HOURS NEEDED FOR ANXIETY OR AGITATION 08/30 completed Not Available Not Available Not Available ciprofloxac in 0.3 % eye drops 11/16 completed Not Available Not Available Not Available benzonatate 100 mg capsule TAKE 1 CAPSULE BY MOUTH THREE TIMES DAILY FOR UP TO 10 DAYS NEEDED FOR COUGH 05/02 completed Not Available Not Available Not Available [...] completed Not Available Not Available Not Available buspirone 10 mg tablet TAKE 1 TABLET BY MOUTH TWICE DAILY active Not Available Not Available No t Available lisinopril 10 mg tablet 08/30 completed Not Available Not Available Not Available Humulin 70/30 U-100 Insulin 100 unit/mL subcutaneou s suspension 08/30 completed Not Available Not Available Not Available docusate sodium 100 mg capsule TAKE 1 CAPSULE BY MOUTH TWICE DAILY active Not Available Not Available No t Available gabapentin 300 mg capsule 11/16 completed Not Available Not Available Not Available omeprazole 20 mg capsule,del ayed release TAKE 1 CAPSULE BY MOUTH DAILY 05/02 completed Not Available Not Available Not Available hydroxyzine HCl 25 mg tablet TAKE 1 TABLET BY MOUTH EVERY 4 HOURS NEEDED FOR ITCHING OR ANXIETY 05/02 completed Not Available Not Available Not Available mupirocin 2 % topical ointment APPLY TOPICALLY TO THE AFFECTED AREA THREE TIMES DAILY FOR 10 DAYS 05/02 completed Not Available Not Available Not Available levofloxaci n 500 mg tablet TAKE 1 TABLET BY MOUTH DAILY FOR 3 DAYS 04/30 completed Not Available Not Available Not Available albuterol sulfate HFA 90 mcg/actuati on aerosol inhaler INHALE 2 PUFFS BY MOUTH EVERY 6 HOURS NEEDED FOR SHORTNESS OF BREATH OR WHEEZING active Not Available Not Available No t [...] spray,suspe nsion SHAKE LIQUID AND USE 1 SPRAY IN EACH NOSTRIL DAILY NEEDED FOR ALLERGY SYMPTOMS OR RHINITIS active Not Available Not Available No t [...] Available Not Available No t Available insulin aspart (U-100) 100 unit/mL (3 mL) subcutaneou s pen INJECT 16-13-10 UNITS BEFORE EACH MEAL UP [...] completed Not Available Not Available Not Available lactulose 10 gram/15 mL oral solution TAKE 15 ML BY MOUTH THREE TIMES DAILY 05/02 completed Not Available Not Available Not Available Vesicare 10 mg tablet Take 1 tablet every day by oral route for 21 days. 11/16 completed Not Available Not Available Not Available Lantus U-100 Insulin 08/30 completed Not Available Not Available Not Available BD Ultra-Fine Short Pen Needle 31 gauge x 5/16 08/30 completed Not Available Not Available Not Available FeroSul 325 mg (65 mg iron) tablet TAKE 1 TABLET BY MOUTH EVERY DAILY active Not Available Not Available No t Available Xarelto 20 mg tablet TAKE 1 TABLET BY MOUTH DAILY active Not Available Not Available No t Available OneTouch Verio test strips TEST FOUR TIMES DAILY 08/30 completed Not Available Not Available Not Available vitamin E (dl, acetate) 90 mg (200 unit) capsule Take 1 capsule every day by oral route. 2024 active Not Available Not Available Not Avai [...] completed Not Available Not Available Not Available Jardiance 10 mg tablet TAKE 1 TABLET BY MOUTH DAILY 05/02 completed Not Available Not Available Not Available Entresto 24 mg-26 mg tablet TAKE 1 TABLET BY MOUTH TWICE DAILY 05/02 completed Not Available Not Available Not Available Basaglar KwikPen U-100 Insulin 100 unit/mL (3 mL) subcutaneou s ADMINISTE R 18 UNITS UNDER THE SKIN EVERY MORNING 05/02 completed Not Available Not Available Not Available BD Trina 2nd Gen Pen Needle 32 gauge x 5/32 USE THREE TIMES DAILY 08/30 completed Not Available Not Available Not Available OneTouch Verio Reflect Meter TEST BLOOD GLUCOSE ONCE DAILY 11/16 completed Not Available Not Available Not Available Gemtesa 75 mg tablet TAKE 1 TABLET BY MOUTH DAILY active Not Available Not Available No t Available insulin glargine-yf gn (U-100) 100 unit/mL (3 mL) subcutaneou s pen INJECT 18 UNITS UNDER THE SKIN EVERY MORNING active Not Available Not Available No t Available Vitals Date Recorded Heart rate Respiratory rate Provider N jean and Address Organization Details Last Updated DateTime 11/16/2023 83 /min 15 /min Toro Hernandez MD [address], [facility] [address], [place], [address], [place] [employer] 11/16/2023 15:48:04 Date Recorded Body height Body mass index (BMI) Body weight Heart rate Oxygen saturation Oxygen saturation in Arterial blood by Pulse oximetry Body temperature Systolic And Diastolic Provider Name and Address Organization Details Last Updated DateTime 4 162.56 cm 46.3 kg/m2 435994. 94 g 83 /min 98 % 98 % 98 [degF] 118/76 mm[Hg] Fidelia Henderson MA [employer] 4 14:40:16 Date Recorded Body temperature Oxygen saturation Oxygen saturation in Arterial blood by Pulse oximetry Heart rate Respiratory rate Provider Name and Address Organization Details Last Updated DateTime 4 97.5 [degF] 95 % 95 % 75 /min 15 /min Toro Hernandez MD [address], [place], [address], [employer] 4 12:54:14 Date Recorded Body height Body mass index (BMI) Body weight Heart rate Systolic And Diastolic Provider Name and Address Organization Details Last Updated DateTime 12/27/2023 162.56 cm 47.2 kg/m2 649852.9 g 75 /min 120/76 mm[Hg] Fidelia Henderson MA [employer] 12/27/2023 12:28:59 Date Recorded Body temperature Oxygen saturation Oxygen saturation in Arterial blood by Pulse oximetry Heart rate Heart rate Respiratory rate Provider Name and Address Organization Details Last Updated DateTime 4 97.6 [degF] 93 % 93 % 92 /min 92 /min 15 /min Toro Hernandez MD [address], [place], [address], [employer] 4 15:19:12 Date Recorded Body height Body mass index (BMI) Body weight Systolic And Diastolic Provider Name and Address Organization Details Last Updated DateTime 02/29/2024 162.56 cm 44.1 kg/m2 341887.24 g 120/74 mm[Hg] Tunde Marsh CMA [employer] [facility] 02/29/2024 14:37:50 Date Recorded Heart rate Body mass index (BMI) Body weight Heart rate Respiratory rate Provider Name and Address Organization Details Last Updated DateTime 05/02/2025 79 /min 43.8 kg/m2 096654.0 5 g 79 /min 15 /min Toro Hernandez MD [address] [facility], [address], [place], [address] , [facility] [employer] [facility] 5 14:58:52 Date Recorded Body height Body temperature Oxygen saturation Oxygen saturation in Arterial blood by Pulse oximetry Systolic And Diastolic Provider Name and Address Organization Details Last Updated DateTime 5 162.56 cm 98.1 [degF] 97 % 97 % 126/78 mm[Hg] Re Valverde MA [facility] [employer] [facility] 5 14:53:39 Date Recorded Heart rate Respiratory rate Provider N jean and Address Organization Details Last Updated DateTime 08/30/2024 83 /min 14 /min Toro Hernandez MD [address] [facility], [facility] [address], [place], [address], [facility] [employer] [facility] 08/30/2024 15:13:01 Date Recorded Body height Body mass index (BMI) Body weight Body temperature Heart rate Oxygen saturation Oxygen saturation in Arterial blood by Pulse oximetry Systolic And Diastolic Provider Name and Address Organization Details Last Updated DateTime 4 162.56 cm 43.9 kg/m2 257022. 65 g 98.4 [degF] 83 /min 96 % 96 % 126/82 mm[Hg] Re Valverde MA [facility] [employer] [facility] 4 15:14:05 Social History Question Answer Notes LastModified by Organizat ion Details LastModified Time Tobacco Smoking Status Former Smoker Fidelia Henderson MA [facility], [facility] [employer] [facility] 11/16/2023 14:48:35 What Is Your Level Of Caffeine Consumption? [...] Was Ill? No Information not available 11/16/2023 What Type Of Diet Are You Following? REGULAR Information not available 08/30/2024 Which Illicit Or Recreational Drugs Have You Used? Marijuana Information not available 11/16/2023 Do You Have An Electrostatic Air Filter? No Information not available 11/16/2023 When Did You Quit Smoking? 16+yearssincelastbernard damon Information not available 11/16/2023 Do You Have A Humidifier? No Information not available 11/16/2023 How Many Years Have You Used Illicit Or Recreational Drugs? 40 Information not available 11/16/2023 Where Do You Live? SingleLevelHouse Information not available 11/16/2023 Do You Have Moisture Problems In Your Home? No Information not available 11/16/2023 What Was The Date Of Your Most Recent Tobacco Screening? 05/02/2025 Information not available 05/02/2025 Do You Have Any Pets? Yes Information [...] No Information not available 11/16/2023 Do You Use Sunscreen Routinely? No Information not available 11/16/2023 Have You Recently Traveled Abroad? No Information not available 11/16/2023 Have You Used IV Drugs? No Information not available 11/16/2023 Do You Have Any Dietary Restrictions? No Information not available 08/30/2024 Sex: Unknown Functional Status Question Answer Note LastModified by Organizat ion Details LastModified Time Do you use any illicit or recreational drugs? Yes Information not available 11/16/2023 Do you or have you ever used any other forms of tobacco or nicotine? No Information not available 11/16/2023 What is your level of alcohol consumption? None Information not available 11/16/2023 Are you currently employed? No Information not available 08/30/2024 Have you been exposed to chemicals or toxins? Not that aware of Information not available 11/16/2023 Mental Status Question Answer Note LastModified by Organization D etails LastModified Time Do you feel stressed (tense, restless, nervous, or anxious, or unable to sleep at night)? [id number] Information not available 11/16/2023 Family History Relationship Description Onset Age of this Age Resolved Age Notes LastModified by Organization Details LastModified Time Mother Diabetes mellitus [email or web address] Not available 2023 14:45:15 Mother Hypertensive disorder [email or web address] Not available 2023 14:45:33 Maternal Grandmother Diabetes mellitus [email or web address] Not available 2023 14:45:15 Maternal Grandmother Malignant neoplasm of pancreas [email or web address] Not available 2023 14:45:59 Maternal Grandfather Malignant neoplasm of lung [email or web address] Not available 2023 14:46:13 Father Diabetes mellitus [email or web address] Not available 2023 14:46:39 Medical History No medical history recorded. Gynecological HistoryNo gynecological history recorded. Obstetrics History GPAL:G 0 P 0 0 0 0 Past Encounters Encounter ID Performer Location Encounter Start Date Encounter Closed Date Diagnosis/Indication Diagnosis SNOMED-CT Code Diagnosis ICD10 Code Diagnosis IMO Codes Diagnosis Note [id number] Toro Hernandez MD [facility] [address] 11/16/2023 14:19:22 11/17/2023 08:23:39 Obstructive sleep apnea syndrome 04499000 G47.33 Periodic l imb movement disorder [id number] G47.61 D50.8 E83.42 [id number] Toro Hernandez MD [place] [address] 0 12/27/2023 12:16:41 12/28/2023 08:59:08 Obstructive sleep apnea syndrome 30577148 G47.33 Vitamin E deficiency 541 23351 E56.0 Iron deficiency 26391403 E61.1 [id number] Toro Hernandez MD [place] [place] [address] [place] [address] 02/29/2024 14:13:36 02/29/2024 15:41:43 Obstructive sleep apnea syndrome 05238233 G47.33 Vitamin E deficiency 541 79633 E56.0 Iron deficiency 17900108 E61.1 [id number] Toro Hernandez MD [facility]_[address] [address] 08/30/2024 14:49:27 08/30/2024 17:10:13 Obstructive sleep apnea syndrome 12389886 G47.33 Vitamin E deficiency 541 85991 E56.0 Iron deficiency 50878337 E61.1 [id number] Toro Hernandez MD [address] [address] 05/02/2025 14:16:21 05/06/2025 15:26:36 Obstructive sleep apnea syndrome 90028294 G47.33 Vitamin E deficiency 541 00007 E56.0 Iron deficiency 96532480 E61.1 Health Concerns Section Related Observation LastModified by Organization Detai ls LastModified Time None Recorded Concern Status LastModified by Organization Details LastModified Time None Recorded Advance Directives Directive None Recorded Payers Insurance Date Sequence Insurance Name Policy Number Policy Ojeda Covered Member ID Ojeda Member ID Guarantor Name 07/10/2025 1 [facility] ON OR AFTER 10/10/2020 - DUAL ELIGIBLE (MEDICARE REPLACEMENT/A DVANTAGE - HMO) [id number] Loretta Penn [id number] Loretta Penn 05/02/2025 1 [place] Loretta Penn [id number] Loretta Penn 05/02/2025 1 [facility] PRIOR TO 04/09/2021 (MEDICAID REPLACEMENT - HMO) Loretta Penn [id number] Loretta Penn 05/02/2025 1 [facility] - DOS ON OR AFTER 21 (MEDICAID REPLACEMENT - HMO) [id number] Loretta Penn [id number] Loretta Penn 05/02/2025 1 [facility] - DOS PRIOR TO 2021 (MEDICAID REPLACEMENT - HMO) Madai Penn [id number] Loretta Penn Notes Date Note Type Note Provider Name and Address Organization Details Recorded Time 11/16/2023 text/html Primary care/Referring provider: Jey Klein PA-C; Oswaldo Serrano MD; Pastora Flores MD CC: [employer] Air[employer]ense 10autoset unit is broken. During the [facility] home sleep study on 07/09/22, AHI = 46. During the [facility] titration sleep study on 10/30/23, PLMI = [...] high chance of dozing. Toro Hernandez MD [address] [place] [address], [place], [address], [place] - [place] [employer] 11/28/2023 18:03:42 12/27/2023 text/html Primary care/Referring provider: Jey Klein PA-C; Oswaldo Serrano MD; Pastora Flores MD CC: My [employer] AirSense 10 autoset unit is broken. During the [facility] home sleep study on 09/30/22, AHI = 46. During the [facility] titration sleep study on 10/30/23, PLMI = [...] slight chance of dozing. Toro Hernandez MD [address] [place] [address], [phone], [place] - [facility] [employer] 12/27/2023 12:54:50 02/29/2024 text/html Primary care/Referring provider: Jey Klein PA-C; Oswaldo Serrano MD; Pastora Flores MD CC: I have some nosebleeding from using my nasal CPAP. During the [facility] home sleep study on 07/09/22, AHI = 46. During the [facility] titration sleep study on 10/30/23, PLMI = [...] moderate chance of dozing. Toro Hernandez MD [address] [place] [address], [facility] [address], [place], [address], [place] - [place] [employer] 04/15/2024 16:06:26 08/30/2024 text/html Primary care/Referring provider: Jey Klein PA-C; Oswaldo Serrano MD; Pastora Flores MD CC: I have claustrophobia using my CPAP. I was also hospitalized at [facility] for blood infection from May to July. During the [facility] home sleep study on 07/09/22, AHI = 46. During the [facility] titration sleep study on 10/30/23, PLMI = [...] moderate chance of dozing. Toro Hernandez MD [address] [place] [address], [phone], [facility] [employer] [facility] 09/11/2024 18:06:53 05/02/2025 text/html Primary care/Referring provider: Jey Klein PA-C; Oswaldo Serrano MD; Pastora Flores MD During the [facility] home sleep study on 07/09/22, AHI = 46. During the [facility] titration sleep study on 10/30/23, PLMI = 36. At home since 08/30/24, the patient owns a [employer] AirSense 11 autoset unit with heated humidification. The patient does not need the ramp to start low and go up slowly on the pressure anymore. There is some xerostomia in a.m. There is no hose/mask condensation with water. The patient owns a Respironics small Dream Wear nasal mask and a Respironics small Dream Wear full face mask without chin strap. There is no claustrophobia, no nostril/nose bridge irritation, no facial rash, no facial numbness, no nosebleeding. The patient feels slightly refreshed upon waking and daytime alertness is mildly improved. Energy levels are sustained for the [...] DOZINGSitting and reading - 1Watching television - 1Sitting inactive in a public place (e.g. a theater or meeting) - 0As a passenger in a car for an hour without a break - 1Lying down to rest in the afternoon when circumstances permit - 2Sitting and talking to someone - 0Sitting quietly after lunch without alcohol - 1In a car, while stopped for a few minutes in the traffic - 0TOTAL SCORE 6Subjectively, patient has a slight chance of dozing. Toro Hernandez MD [address] [place] [address], [place], [address], [place] [facility] 05/06/2025 14:23:58 OBGyn Episode No OBEpisode recorded.
--- OUTSIDE RECORDS SUMMARY | 2025-07-21 16:23 | XMS_ITS | Clinical Summary ---
Author Organization [facility] Address [address] [place] [address] Phone Care Team Providers Care Illusionist Name Role Phone Oswaldo Serrano MD Primary Care Provider [phone] Angel Crowe DPM Unavailable [phone] Mora Fritz Unavailable Unavailable Ok Jorge MD Unavailable Orlin Urbina APRN, ANIMAL KILLER Unavailable [phone] Allergies Active Allergy Reactions Criticality Noted Date [...] Continuous Blood Gluc Transmit (Dexcom G6 Transmitter) [facility] 12/03/19 22 Active Cyanocobalamin (B-12) 500 MCG TabletIndications:V itamin B12 Deficiency Take 1 Tablet by mouth daily. 90 Tablet 3 11/14/19 23 Active Blood Glucose Monitoring Suppl Device Test blood glucose 1x daily, E11.9, insulin dependent 1 Each 12/31/19 23 Active Lancets [facility] 1 Lancet by Does not apply route daily. Test blood glucose 1x daily. E11.9, insulin dependent 100 Lancet 3 12/31/19 23 Active fluticasone (FLONASE) 50 MCG/ACT SuspensionIndicatio ns:Nasal Congestion 1-2 Sprays by Nasal route daily. Use in each nostril as directed. 1 g 3 02/02/20 23 Active Insulin Pen Needle (BD Pen Needle Trina 2nd Gen) 32G X 4 MM [facility] USE TO INJECT [...] Fibrillation, Cardiac Failure, High Blood Pressure Active levothyroxine (SYNTHROID) 75 MCG TabletIndications:H ypothyroidism [...] daily. Indications: Iron Deficiency 10/29/19 25 Active Lidocaine 4 % Patch 1 Patch by Transdermal route. Active Acetaminophen-DM (Coricidin HBP Cold/Cough/Flu) 650-20 MG/30ML Liquid Take 30 mL by mouth every 4 hours as needed for Other (congestion). 11/02/19 25 Active escitalopram (LEXAPRO) 10 MG Tablet TAKE 1 TABLET BY MOUTH DAILY 90 Tablet 1 12/21/19 25 Active nortriptyline (PAMELOR) 10 MG Capsule Take 1 Capsule by mouth nightly. 90 Capsule 1 02/08/20 25 Active Continuous Glucose Sensor (Dexcom G7 Sensor) Misc 1 Each by Does not apply route every 10 days. Change sensor every 10 days. 9 Each 1 02/09/20 25 Active Vibegron (Gemtesa) 75 MG Tablet Take 1 Tablet by mouth daily. 03/19/20 25 Active hydrOXYzine (ATARAX) 25 MG Tablet Take 25 mg by mouth every 4 hours as needed for Anxiety or Itching. 03/19/20 25 Active polyethylene glycol (MiraLax) 17 g Pack Take 17 g by mouth daily as needed for Constipation - 1st line. 03/19/20 25 Active acetaminophen Extra Strength (TYLENOL) 500 MG Tablet Take 500 mg by mouth every 6 hours as needed. 03/15/20 25 Active hydrocortisone 1 % Cream 03/18/20 25 Active magnesium oxide (MAG-OX) 400 (240 Mg) MG Tablet Take 400 mg by mouth daily. 03/15/20 25 Active Insulin Aspart FlexPen 100 UNIT/ML Solution Pen-injector 15-18 units before each meal; correctional factor insulin of 1:30 if >140 mg/dL, up to 60 units per day 60 mL 1 03/20/20 25 Active furosemide (LASIX) 40 MG Tablet Take 40 mg by mouth 2 times daily (with meals). 2 tabs in am and 1 tab in afternoon 03/19/20 25 Active insulin glargine (LANTUS, BASAGLAR) 100 UNIT/ML Solution Pen-injector 18 Units by Subcutaneous route every morning. 15 mL 1 03/25/20 25 Active Continuous Glucose Meter Record Clerk (Dexcom G7 Meter Record Clerk) Device 1 Each by Does not apply route 4 times daily. Use to check glucose 4x daily. 1 Each 04/19/20 25 Active busPIRone (BUSPAR) 10 MG Tablet Take 1 Tablet by mouth 2 times daily. 60 Tablet 05/03/20 25 Active docusate sodium (COLACE) 100 MG CapsuleIndications: Constipation TAKE 1 CAPSULE BY MOUTH TWICE DAILY 60 Capsule 2 05/16/20 25 Active apixaban (ELIQUIS) 5 MG TabletIndications:H istory of Thromboembolic Disease Take 1 Tablet by mouth 2 times daily. Indications: History of Disease involving a Thrombosis or an Embolism 180 Tablet 3 07/11/20 25 Active sacubitril-valsarta n (ENTRESTO) 24-26 MG Tablet Take 1 Tablet by mouth 2 times daily. 180 Tablet 07/11/20 25 Active Cholecalciferol 125 MCG (5000 UT) Tablet Take 1 Tablet by mouth daily. Active ascorbic acid (ASCORBIC ACID) 500 MG Tablet Take 500 mg by mouth daily. 05/02/20 25 Active empagliflozin (JARDIANCE) 10 MG Tablet Take 10 mg by mouth daily. 06/05/20 25 Active triamcinolone (KENALOG) 0.1 % CreamIndications: Application Site: apply twice a day to left arm for 7-10 days (Description and Location) 15 g 07/17/20 25 Active rivaroxaban (Xarelto) 20 MG TabletIndications:A trial Fibrillation Take 20 mg by mouth daily. Indications: Atrial Fibrillation 10/29/19 025 Disconti nued(For mulary change) Active Problems Problem Noted Date Diagnosed Date [...] Encounters Date Type Department Care Team Description 07/19/[address] [facility] [address] [place] [address] Oswaldo Serrano MD Advice Only 07/17/2025 2:45 PM CDT Office Visit [facility] [address] [place] [address] Oswaldo Serrano MD History of atrial fibrillation (Primary Dx); Type 2 diabetes mellitus treated with insulin; Encounter for screening mammogram for breast cancer; Diabetic eye exam; Rash; Urinary frequency; Elevated LFTs; Anemia, normocytic normochromic Discharge Disposition: Discharged to home or Selfcare 07/17/2025 Telephone [facility] [address] [place] [address] Oswaldo Serrano MD 07/17/2025 Travel 07/11/2025 Telephone [facility] [address] [place] [address] Oswaldo Serrano MD 07/10/2025 Refill [facility] [address] [place] [address] Oswaldo Serrano MD Medication Refill 06/11/2025 Home Care Visit [facility] [address] [place] [address] Merry Davey RN SN - DISCHARGE SUMMARY 05/20/[facility] [address] [place] [address] eMrry Davey RN SN - OASIS TRANSFER W/OUT DC 05/[facility] [place] [address] Oswaldo Serrano MD Medication Refill 05/16/2025 Results Follow-Up [facility] [address] [place] [address] Oswaldo Serrano MD URINALYSIS REFLEX IF INDICATED BY ABNORMAL RESULTS 05/14/2025 3:00 PM CDT Home Care Visit [address] [address] Merry Davey, RN SN - HOME VISIT 05/14/2025 Home Care Visit [address] [address] Merry Davey, RN CARE CONFERENCE 05/07/2025 1:30 PM CDT Home Care Visit [address] [address] Hina Fernandes, PT PT - INITIAL EVALUATION 05/07/2025 12:00 PM CDT Home Care Visit [address] [address] Tika Tobin LPN SN - HOME VISIT 05/07/2025 Travel 05/06/2025 Home Care Visit [address] [address] Rosa Hurt, PT TELEPHONE ENCOUNTER 05/03/[address] [facility] [address] [place] [address] Oswaldo Serrano MD 05/03/2025 Plan of Care Documentation [address] [address] 05/02/2025 1:00 PM CDT Home Care Visit [address] [address] Merry Davey, RN SN - OASIS START OF CARE from Last 3 Months Immunizations Immunization Administration Dates Next Due Covid-19, Mrna, Lnp-s, Pf, 3 0 Mcg/0.3 Ml Dose (Pfizer) 01/18/2021,12/23/2020 Influenza Vaccine 07/02/2014 Influenza Vaccine, Quadrivalent, PF 08/10,07/18/2020,06/22/2019,08/19,07/17/2015,07/02/2014 Pneumococcal conjugate PCV20 , polysaccharide [id number] conjugate, adjuvant, PF 08/26/2022 TDAP Vaccine 06/10/2024 [...] drink = 0.6 oz pur e alcohol) [facility] Utilities Answer Date Recorded In the past 12 months has e Eve[employer], gas, oil, or water [employer] threatened to shut off services in your [...] 11/29/2024 How often do you attend chur or confucianism services? Never 11/29/2024 Do you belong to any clubs o r organizations such as advent groups, unions, fraternal or athletic groups, or [...] Total Score - Questions 1-9 2 10/11 [facility] - Occupational [...] time in the past [address] [facility], were you homeless or living [...] Sign Reading Time Taken Comments Blood Pressure 124/60 07/17/2025 2:54 PM CDT Pulse 101 07/17/2025 2:54 PM CDT Temperature 36.2 C (97.1 F) 07/17/2025 2:54 PM CDT Respiratory Rate 18 05/14/2025 3:52 PM CDT Oxygen Saturation 90% 07/17/2025 2:54 PM CDT Inhaled Oxygen Concentration - - Weight 101.6 kg (224 lb) 07/17/2025 2:54 PM CDT Height 167.6 cm (5' 6) 07/17/2025 2:54 PM CDT Body Mass Index 36.15 07/17/2025 2:54 PM CDT Plan of Treatment Upcoming Encounters Date Type Department Care Team (Late st Contact Info) Description 07/22/2025 2:30 PM CDT Telemedicine [facility] - [place] [address] [place] [address] Ok Jorge MD #[address] [phone] 07/30/2025 2:45 PM CDT Office Visit [facility] [address] [place] [phone] Orlin Urbina APRN, ANIMAL KILLER [address] [place] [address] 11/18/2025 2:30 PM DATE NIGHT SITTER Office Visit [facility] - Family Medicine - [place] [address] [place] [address] Oswaldo Serrano MD [address] [address] Health Maintenance Due Date Last Done Comments Diabetes: Foot Exam 1961 HPV/Cotest 12/20/1991 Colonoscopy 2006 Immunochemical Fecal Occult Blood 2006 Zoster Immunization (1 of 2) 12/20/2011 Medicare Initial AWV [id number] 04/09/2018 Hepatitis B Immunization (1 of 3 - Risk 3-dose series) 2021 Respiratory Syncytial Virus (RSV) Immunization (Adult) (1 - Risk 60-74 years 1-dose series) 2021 Diabetes: Eye Exam 02/24/2024 02/23/2023, 0 02/23/2023, 10/16/2021, Additional history exists Mammogram 12/01/2024 12/01/2023, 11/10, 10/27/2021, Additional history exists Influenza Immunization (#1) 06/10/202508/10, 07/18/2020, 06/22/2019, Additional history exists SARS-COV-2 Immunization ( season) 2025 01/18/2021, 12/23/2020 Cologuard 09/23/2025 09/23/2022 Colorectal Cancer Screening 09/23/2025 [...] Name Priority Date/Time Associated Diagnosis Comments CT - HEAD/NECK 06/08/2025 12:00 AM CDT URINALYSIS REFLEX IF INDICATED BY ABNORMAL RESULTS Routine 05/07/2025 12:00 AM CDT Bladder infection CMP (COMPREHENSIVE METABOLIC PANEL) Routine 03/26/2025 12:00 AM CDT Elevated LFTs POCT GLYCOSYLATED HEMOGLOBIN Routine 01/04/2024 3:30 PM CDT Type 2 diabetes mellitus treated with insulin (HCC) SHABANA DIAG BILATERAL DIGITAL W CAD Routine 12/01/2023 3:15 PM DATE NIGHT SITTER Abnormal mammogram HM DILATED EYE EXAM 02/23/2023 1 2:00 AM CDT PATHOLOGY CYTOLOGY LOAN CLOSER Routine 11/09/2022 3:06 PM DATE NIGHT SITTER Encounter for well woman exam with routine gynecological exam COLOGUARD Routine 09/23/2022 4:00 PM DATE NIGHT SITTER Screening for colon cancer from Last 3 Months or Most Recently Relevant to Health Maintenance Results * CT - HEAD/NECK (06/08/2025 12:00 AM CDT) 06/08/2025 us Provider Scan IMG CT ORDERABLES Final Result SCAN * URINALYSIS REFLEX IF INDICATED BY ABNORMAL RESULTS (05/07/2025 12:00 AM CDT) Urine URINE SPECIMEN OBTAINED BY CLEAN CATCH PROCEDURE / Unknown Oswaldo Serrano MD URINE ORDERABLES Final Re sult SCAN * CMP (COMPREHENSIVE METABOLIC PANEL) (03/26/2025 12:00 AM CDT) Blood Oswaldo Serrano MD CHEMISTRY ORDERABLES Ayanna l Result Performing Organization Address City/[facility]/ZIP Co de Phone Number SCAN * (ABNORMAL) POCT GLYCOSYLATED HEMOGLOBIN (01/04/2024 3:30 PM CDT) HGB-A1C 8.9(A) 4 - 6 % Blood 01/04/2024 3:30 PM CDT Result [facility] Ok Jorge MD POINT OF CARE TESTING (MANUAL) F inal Result * SHABANA DIAG BILATERAL DIGITAL W CAD (12/01/2023 3:15 PM DATE NIGHT SITTER) Anatomical Region Laterality Modality breast Bilateral Mammography 12/01/2023 2:48 PM DATE NIGHT SITTER Narrative 12/02/2023 1:16 PM DATE NIGHT SITTER - SHABANA DIAG BILATERAL DIGITAL W CAD [...] 11/25/2022, 09/14/2022, 01/29/2022, 10/27/2021, and 10/17/2018 [facility]. BREAST TISSUE:There are scattered fibroglandular densities [...] signed by: Arsalan Bocanegra M.D. ll/:12/01/2023 15:11:27 Assisted Living Housekeeper(s): RT Lauri(R)(M), [facility] letter sent: Normal Exam Reading location: [facility] BI-RADS: 2 Benign Procedure Note Arsalan Bocanegra [...] dated: 11/25/2022, 09/14/2022, 01/29/2022, 10/27/2021, and 10/17/2018 [facility]. BREAST TISSUE:There are scattered fibroglandular [...] signed by: Arsalan Bocanegra M.D. ll/:12/01/2023 15:11:27 Assisted Living Housekeeper(s): Alicia Ac, RT(R)(M), [facility] letter sent: Normal Exam Reading location: [facility] BI-RADS: 2 Benign Oswaldo Serrano MD IMG MAMMO ORDERABLES Ayanna l Result * HM DILATED EYE EXAM (02/23/2023 12:00 AM CDT) 02/23/2023 us Provider Scan PROCEDURE/MINOR SURGICAL ORDERAB LES Final Result SCAN * PATHOLOGY CYTOLOGY LOAN CLOSER (11/09/2022 3:06 PM DATE NIGHT SITTER) SPECIMEN ADEQUACY Satisfactory for evaluation. Endocervical/transf ormation zone component is absent. 11/18/2022 10:47 AM DATE NIGHT SITTER [facility] DESCRIPTIVE DIAGNOSIS NEGATIVE FOR INTRAEPITHELIAL LESIONS OR MALIGNANCY. 11/18/2022 10:47 AM [facility] at 1047 DATE NIGHT SITTER HPV Reflex if ASCUS? Yes 11/18/2022 10:47 AM [facility] Automated Examination Analysis of this sample has been assisted by an automated imaging and review system (Thinprep Imaging System, [employer], [place], [place]). This case is further evaluated and finalized by a or first assist registered nurse and/or pathologist. 11/18/2022 10:47 AM [facility] Disclaimer The PAP smear is a [...] 65 unless clinically indicated. 11/18/2022 10:47 AM DATE NIGHT SITTER [facility] Other CERVIX UTERI STRUCTURE / Unknown Non-Phlebotomy Collection / Unknown 11/09/2022 3:06 PM DATE NIGHT SITTER 11/09/2022 3:06 PM DATE NIGHT SITTER us Jamison Hernández MD PATHOLOGY/CYTOLOGY ORDERABLES Final Result [facility] [address] [place] [address], [place] * COLOGUARD (09/23/2022 4:00 PM DATE NIGHT SITTER) Cologuard Negative Negative [facility] Comment: NEGATIVE TEST RESULT. A negative [...] (Deandra Lane al, N Engl J Med 2014;370(14):8292-9429) The normal value (reference range) for this assay is negative. COLOGUARD RE-SCREENING RECOMMENDATION: Periodic colorectal cancer screening is an important part of preventive healthcare for asymptomatic individuals at average risk for colorectal cancer. Following a negative Cologuard result, the [place] [employer] Society and U.S. Multi-Society Task Force screening guidelines recommend a Cologuard re-screening interval of 3 years. References: [place] [employer] Guideline for Colorectal Cancer Screening: https://www.cancer.org/cancer/kijdf-ipmddr-eeuujq/pkfodvaxh-eurxevekm-zbjifgz/ acs-recommendations.html.; Chavez DK, Rob CR, Elroy TorresK, Colorectal Cancer Screening: Recommendations for Physicians and Patients from the U.S. Multi-Society Task Force on Colorectal Cancer Screening , Am J Gastroenterology 2017; 112:5243-4099. TEST DESCRIPTION: Composite algorithmic analysis of stool [...] (Deandra Lane al, N Engl J Med 2014;370(14):4400-8860.) Cologuard may produce a false negative or false positive result (no colorectal cancer or precancerous polyp present at colonoscopy follow up). A negative Cologuard test result does not guarantee the absence of CRC or advanced adenoma (pre-cancer). The current Cologuard screening interval is every 3 years. ([place] [employer] Society and U.S. Multi-Society Task Force). Cologuard performance data in a 10,000 patient pivotal study using colonoscopy as the reference method can be accessed at the following location: www.Quintiq.Axentra/results. Additional description of the Cologuard test process, warnings and precautions can be found at www.Comply365.Axentra. Stool 09/23/2022 4:00 PM DATE NIGHT SITTER 09/25/2022 10:38 AM DATE NIGHT SITTER Connor Yuan APRN, CNP BODY FLUIDS & ST OOLS ORDERABLES Final Result [facility] [address] [place] [address], [place] [phone] [employer] [address] [place] [address] from Last 3 Months or Most Recently Relevant to Health Maintenance Insurance MEDICARE [place]ICAID [place] Advance Directives Documents on File Type Date Recorded Patient Systems Architecture Analyst Expl anation Power of Tree Climber for Health Care 05/10/2018 9:03 AM * [...] 11:54 AM 03/29/2020 10:53 PM Care Teams Illusionist Relationship Specialty Start Date End Date Oswaldo Serrano MD [address]2 [facility] [address] [place] [address] PCP - General Family Medicine 05/19/17 Angel Crowe DPM #2 [facility] [address] [place] [address] Consulting Physician Podiatry 06/16/17 Mora Fritz AK Behavioral Health Navigator 06/15/18 Ok Jorge MD #2 [facility] [address] [place] [address] Consulting Physician Endocrinology 05/12/22 Orlin Urbina APRN, ANIMAL KILLER [address] [place] [address] Nurse Practitioner Advanced Practice Nurse 11/09/22
--- OUTSIDE RECORDS SUMMARY | 2025-07-21 16:23 | XMS_ITS | Encounter Summary ---
Author Organization [facility] Address [address] [place] [address] Phone Care Team Providers Care Sap Business Objects Consultant Name Role Phone Oswaldo Serrano MD Primary Care Provider [phone] Angel Crowe DPCiara Unavailable [phone] Mora Fritz Unavailable Unavailable Ok Jorge MD Unavailable Orlin Urbina APRN, JOB PRESS FEEDER Unavailable [phone] Reason for Visit * Reason Comments Medication Refill Encounter Details Date Type Department Care Team (Late st Contact Info) Description 07/14/2022 Refill [facility] - Family Medicine - [place] [address] [place] [address] Oswaldo Serrano MD #[address] [address] Medication Refill Social History Tobacco Use Types [...] Info) Description 07/22/2025 2:30 PM CDT Telemedicine [facility] Endocrinology [facility] #[address] [place] [address] Ok Jorge MD #[address] [address] 07/30/2025 2:45 PM CDT Office Visit [facility] PHYSICIAN [facility] UROLOGY #2 [place] [address] Orlin Urbina APRN, JOB PRESS FEEDER #2 [place] [address] 11/18/2025 2:30 PM LINE INSTALLER Office Visit [facility] Family Medicine [facility] #2 [place] [address] Oswaldo Serrano MD #[address] [address] documented as of this encounter Visit Diagnoses Not on filedocumented in this encounter Additional Health Concerns Assessment Noted Time PHQ-9 Depression Total Score: 2 07/18/20 20 4:26 PM CDT documented as of this encounter Care Teams Sap Business Objects Consultant Relationship Specialty Start Date End Date Oswaldo Serrano MD #[address] [address] PCP - General Family Medicine 05/19/17 Angel Crowe DPM #[address] [address] Consulting Physician Podiatry 06/16/17 Mora Fritz [place] Behavioral Health Navigator 06/15/18 Ok Jorge MD [address] [phone] Consulting Physician Endocrinology 05/12/22 Orlin Urbina APRN, YUDI #2 [place] [address] Nurse Practitioner Advanced Practice Nurse 11/09/22 documented as of this encounter
--- OUTSIDE RECORDS SUMMARY | 2025-07-21 16:23 | XMS_ITS | Encounter Summary ---
Author Organization [facility] Address [address] [place] [address] Phone Care Team Providers Care Peer Counselor Name Role Phone Oswaldo Serrano MD Primary Care Provider [phone] Angel Crowe DPCiara Unavailable [phone] Mora Fritz Unavailable Unavailable Ok Jorge MD Unavailable Orlin Urbina APRN, STAFF AIR TACTICAL OFFICER Unavailable [phone] Reason for Visit * Reason Comments Medication Refill Encounter Details Date Type Department Care Team (Late st Contact Info) Description 08/11/2022 Refill [facility] - Family Medicine - [place] [address] [place] [address] Oswaldo Serrano MD #[address] [address] Medication Refill Social History Tobacco Use Types [...] Tom Quach MD [facility] 01/05/22 Office Visit Oswaldo Serrano MD [facility] 10/07/21 Office Visit Oswaldo Serrano MD [facility] Showing recent visits within past 365 days and meeting all other requirements Future Appointments No visits were found meeting these conditions. Showing future appointments within next 90 days and meeting all other requirements documented in this encounter Plan of Treatment Upcoming Encounters Date Type Department Care Team (Late st Contact Info) Description 07/22/2025 2:[address] [facility] - Endocrinology - [place] [address]2 [place] [phone] Ok Jorge MD #[address] [address] 07/30/2025 2:45 PM CDT Office Visit [facility] UROLOGY #[address] [place] [address] Orlin Urbina APRN, STAFF AIR TACTICAL OFFICER [address] [place] [address] 11/18/2025 2:30 PM PROPOSAL ANALYST Office Visit [facility] - Family [facility] #[address] [place] [address] Oswaldo Serrano MD #[address] [address] documented as of this encounter Visit Diagnoses Not on filedocumented in this encounter Additional Health Concerns Assessment Noted Time PHQ-9 Depression Total Score: 2 07/18/20 20 4:26 PM CDT documented as of this encounter Care Teams Peer Counselor Relationship Specialty Start Date End Date Oswaldo Serrano MD #[address] [address] PCP - General Family Medicine 05/19/17 Angel Crowe DPM #[address] [address] Consulting Physician Podiatry 06/16/17 Mora Fritz [place] Behavioral Health Navigator 06/15/18 Ok Jorge MD #[address] [address] Consulting Physician Endocrinology 05/12/22 Orlin Urbina APRN, STAFF AIR TACTICAL OFFICER [address] [place] [address] Nurse Practitioner Advanced Practice Nurse 11/09/22 documented as of this encounter
--- OUTSIDE RECORDS SUMMARY | 2025-07-21 16:23 | XMS_ITS | Encounter Summary ---
Author Organization [facility] Address [address] [place] [address] Care Team Providers Care Global Upstream Marketing Manager Name Role Phone Oswaldo Serrano MD Primary Care Provider [phone] Encounter Details Date Type Department Care Team (Late st Contact Info) Description 05/23/2025 Results Follow-Up [facility] [address] [place] [phone] Radha Farrell, BROWN Social History Tobacco Use [...] and heating? Not hard at all 05/15/2025 [facility] of Occupat ional Health - Occupational Stress [...] any time in the past 12 m [facility], were you homeless or living in a jail (including now)? No 05/15/2025 Comments Unknown Sex [...] 05/16/2025 12:10 PM CDT Naa Logan, RN documented as of this encounter Mental Status * Does person have difficulty concentrating/remembering/making decisions? Answer Entry Date Author Yes 05/16/2025 12:10 PM CDT Naa Logan RN documented in this encounter Plan of Treatment Upcoming Encounters Date Type Department Care Team (Late st Contact Info) Description 07/23/2025 11:30 AM CDT Office Visit [facility] - Cardiology [address] [facility], [facility] [address] [place] [phone] Marylou Saavedra, TRAVELING PLANT OPERATOR-DIRECTOR OF OPERATIONS SUPPORT [address] [facility] [address] [place] [address] 11/28/2025 1:30 PM OUTCOMES SPECIALIST [facility] [address] [facility], [place] [address] Tiffanie Brown MD [address] [facility] [address] [place] [address] documented as of this encounter Visit Diagnoses Not on filedocumented in this encounter Additional Health Concerns Infection Onset Date Last Indicated Resolved Time COVID-19 Under Investigation 05/27/2025 05/27/2025 05/27/2025 3:18 PM CDT documented as of this encounter Care Teams Global Upstream Marketing Manager Relationship Specialty Start Date End Date Oswaldo Serrano MD [address] [address] PCP - General Family Medicine 07/01/25 documented as of this encounter
--- OUTSIDE RECORDS SUMMARY | 2025-07-21 16:23 | XMS_ITS | Encounter Summary ---
Author Organization [facility] Address [address] [place] [address] Phone Care Team Providers Care Collar Tacker Name Role Phone Oswaldo Serrano MD Primary Care Provider [phone] Angel Crowe DPCiara Unavailable [phone] Mora Fritz Unavailable Unavailable Ok Jorge MD Unavailable Orlin Urbina APRN, COLLIERY CLERK Unavailable [phone] Reason for Visit * Reason Comments Medication Refill Encounter Details Date Type Department Care Team (Late st Contact Info) Description 06/03/2022 Refill [facility] - [facility] Medicine - [place] [address] [place] [address] Oswaldo Serrano MD #[address] [address] Medication Refill Social History Tobacco Use Types [...] Info) Description 07/22/2025 2:30 PM CDT Telemedicine [facility] Endocrinology [facility] #2 [place] [address] Ok Jorge MD #2 [facility] [address] [place] [address] 07/30/2025 2:45 PM CDT Office Visit [facility] PHYSICIAN [facility] UROLOGY #2 [place] [address] Orlin Urbina APRN, COLLIERY CLERK #2 [facility] [place] [address] 11/18/2025 2:30 PM DENTAL TECHNICIAN APPRENTICE Office Visit [facility] Family Medicine [facility] [address] [facility] [place] [address] Oswaldo Serrano MD #2 [facility] [address] [place] [address] documented as of this encounter Visit Diagnoses Not on filedocumented in this encounter Additional Health Concerns Assessment Noted Time PHQ-9 Depression Total Score: 2 07/18/20 20 4:26 PM CDT documented as of this encounter Care Teams Collar Tacker Relationship Specialty Start Date End Date Oswaldo Serrano MD #2 [facility] [address] [place] [address] PCP - General Family Medicine 05/19/17 Angel Crowe DPM #2 [facility] [address] [place] [address] Consulting Physician Podiatry 06/16/17 Mora Fritz [place] Behavioral Health Navigator 06/15/18 Ok Jorge MD #[address] [address] Consulting Physician Endocrinology 05/12/22 Orlin Urbina APRN, YUDI [address] [place] [address] Nurse Practitioner Advanced Practice Nurse 11/09/22 documented as of this encounter
--- OUTSIDE RECORDS SUMMARY | 2025-07-21 16:23 | XMS_ITS | Clinical Summary ---
Author Organization [facility] Address [address] [facility] [place] [address] Care Team Providers Care Sailing Master Name Role Phone Oswaldo Serrano MD Primary Care Provider [phone] Source Comments [facility],non-owned Affiliates and Associated Physician Practices is amultiple site organization consisting of ambulatory clinics and hospital sitesin [place], [place] and [place]. This disclosure is being madepursuant to the Care Everywhere program and may not contain all information available regarding this patient. Last updated 18.[facility] Allergies Active Allergy Reactions Criticality Noted Date [...] by mouth every 6 hours as needed 5 Active albuterol HFA (Proventil; Ventolin; Proair) 108 (90 Base) MCG/ACT inhaler Inhale 2 (two) puffs by mouth every 6 hours as needed for Shortness of Breath 4 Active ascorbic acid (VITAMIN C) 500 MG tablet Take 1 (one) tablet by mouth once daily 5 Active busPIRone (Buspar) 10 MG tablet Take 1 (one) tablet by mouth 2 times daily 5 Active cefadroxil (Duricef) 500 MG capsule Take 2 (two) capsules by mouth 2 times daily 5 Active Cholecalcifero l 125 MCG (5000 UT) Take 1 (one) tablet by mouth once daily Active docusate sodium (Colace) 100 MG capsule Take 1 (one) capsule by mouth 2 times daily Active escitalopram (Lexapro) 10 MG tablet Take 1 (one) tablet by mouth once daily 4 Active ferrous sulfate EC 325 (65 Fe) MG tablet Take 1 (one) tablet by mouth once daily Active fluticasone propionate (Flonase) 50 MCG/ACT nasal spray [place] 2 (two) sprays into each nostril 2 times daily Active hydrocortisone (Hytone) 1 % cream Apply to affected area as needed (itching) 5 Active hydrOXYzine HCl (Atarax) 25 MG tablet Take 1 (one) tablet by mouth every 4 hours as needed for Itching Active insulin aspart (NovoLOG) FlexPen Inject 15 (fifteen) Units subcutaneously 3 times daily,before breakfast/lunch/be dtime 15- 18 units before each meal 4 Active levothyroxine (Synthroid) 75 MCG tablet Take 1 (one) tablet by mouth every morning 4 Active lidocaine (Lidoderm) 4 % patch Apply 1 (one) patch to skin once daily as needed (pain) Active Magnesium Oxide -Mg Supplement 400 (240 Mg) MG Take 1 (one) tablet by mouth once daily 4 Active omeprazole (PriLOSEC) 20 MG capsule Take 1 (one) capsule by mouth once daily Active polyethylene glycol 3350 (Miralax) 17 g packet Take 17 (seventeen) g by mouth once daily as needed 5 Active spironolactone (Aldactone) 25 MG tablet Take 0.5 (one-half) tablet by mouth once daily 4 Active Gemtesa 75 MG tablet Take 1 (one) tablet by mouth once daily 4 Active insulin lispro (HumaLOG) 100 UNIT/ML vial Inject 18 (eighteen) Units subcutaneously 3 times daily before meals Family report 18 units Qam 18 units Qpm 10 units QHS Active cyanocobalamin (Vitamin B-12) 500 MCG tablet Take 1 (one) tablet by mouth once daily Active empagliflozin (Jardiance) 10 MG tablet Take 1 (one) tablet by mouth once daily 5 Active sacubitril-jack sartan (Entresto) 24-26 MG tablet Take 0.5 (one-half) tablet by mouth 2 times daily 5 Active metoprolol succinate XL 24hr (Toprol XL) 25 MG tablet Take 1 (one) tablet by mouth once daily 5 Active cyanocobalamin (Cyanocobalami n) 500 MCG tablet Take 1 (one) tablet by mouth once daily 5 Active apixaban (Eliquis) 5 MG tablet Take 1 (one) tablet by mouth 2 times daily 5 Active Active Problems Problem Noted Date [...] Plan (06/05/2025 7:51 AM CDT): Liver ultrasound; 05/17 with cirrhotic morphology and [...] to ensure Na continues to improve. Family, vice president financial, nurse, and rapid aware of current treatment [...] f/u. Pt was supposed to follow with [facility], advise to keep that appointment [...] f/u. Pt was supposed to follow with [facility], advise to keep that appointment [...] f/u. Pt was supposed to follow with [facility], advise to keep that appointment [...] f/u. Pt was supposed to follow with [facility], advise to keep that appointment [...] f/u. Pt was supposed to follow with [facility], advise to keep that appointment [...] f/u. Pt was supposed to follow with [facility], advise to keep that appointment [...] (home dose with 80mg PO bid) - MGMT SPECIALIST malou and metop succ - cardiac diet with fluid restriction - bid electrolyte monitoring - telemetry monitoring - cardiology consulted, [facility] reported it was denied due to insurance? Assessment & Plan (05/15/2025 11:22 PM CDT): - Last TTE 02/07/2025 with EF 25%, BNP today 2200 - currently deocompensated, will obtain repeat TTE - daily weighs, strict I & O - furosemide 80mg IV tid (home dose with 80mg PO bid) - MGMT SPECIALIST malou and metop succ - cardiac diet [...] f/u. Pt was supposed to follow with [facility], advise to keep that appointment [...] f/u. Pt was supposed to follow with [facility], advise to keep that appointment [...] f/u. Pt was supposed to follow with [facility], advise to keep that appointment [...] f/u. Pt was supposed to follow with [facility], advise to keep that appointment [...] f/u. Pt was supposed to follow with [facility], advise to keep that appointment [...] f/u. Pt was supposed to follow with [facility], advise to keep that appointment [...] f/u. Pt was supposed to follow with [facility], advise to keep that appointment [...] f/u. Pt was supposed to follow with [facility], advise to keep that appointment [...] f/u. Pt was supposed to follow with [facility], advise to keep that appointment [...] f/u. Pt was supposed to follow with [facility], advise to keep that appointment [...] f/u. Pt was supposed to follow with [facility], advise to keep that appointment [...] f/u. Pt was supposed to follow with [facility], advise to keep that appointment [...] endocarditis with resultant tricuspid regurgitation - on terminal manager suppressive abx therapy with cefadroxil Assessment & Plan (05/15/2025 10:56 PM CDT): - 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 - on care home suppressive abx therapy with cefadroxil Agitation 05/15/2025 [...] & Plan (05/16/2025 7:26 AM CDT): - MGMT SPECIALIST levothyroxine Assessment & Plan (05/15/2025 10:56 PM CDT): - MGMT SPECIALIST levothyroxine Atrial fibrillation 05/15/2025 Assessment & Plan [...] - Cont Eliquis - Will need repeat CHACNE in 3 months on discharge to reassess [...] & Plan (05/16/2025 1:20 PM CDT): - MGMT SPECIALIST rivaroxaban, 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 Assessment & Plan (05/15/2025 11:22 PM CDT): - MGMT SPECIALIST rivaroxaban, 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 Prolonged Q-T interval on [...] accuchecks with meals - Cont lantus 5U q Assessment & Plan (06/01/2025 8:46 AM CDT): [...] Encounters Date Type Department Care Team Description 07/18/2025 Travel 07/10/2025 Travel 06/19/2025 Telephone Transitional Care at [address] [address] Mia Mohr MA Question 06/12/2025 Telephone Transitional Care at [address] [address] Mia Mohr MA Question 06/07/2025 Telephone Transitional Care at [facility] [address] [place] [address] Radha Villegas, water chemist 05/23/2025 Results Follow-Up [facility] [address] ICU [address] [place] [address] Radha Farrell RN 05/20/2025 10:14 AM CDT - 05/20/2025 11:59 PM CDT Hospital Encounter [facility] - Cardiac Safety Grooving Machine Operator [address] [place] [address] Linda Lezama MD Discharge Disposition: Home or Self Care 05/15/2025 6:17 PM CDT - 06/06/2025 5:19 PM CDT Hospital Encounter [facility] [address] [address] [place] [phone] Juno Hernandez MD Eschbach, Heather, DO Gandhi, Avi, MD Mikhalkova, Deana, MD Mehanni, Mina M, MD Hassan, Abdalla H, MD Becker, Erica, MD Kamal, Syeda, MD Hoque, Farzana, MD Brotherton, Timothy, MD Hospitalist Discharge Disposition: Custodial Facility 05/15/2025 Travel from Last 3 Months [...] and heating? Not hard at all 05/15/2025 [facility] [place] of Occupat ional Health - Occupational Stress [...] any time in the past 12 m [facility], were you homeless or living in a group home (including now)? No 05/15/2025 Comments Unknown [...] [facility] - Cardiology [address] [facility], [facility] [address] [place] [address] Marylou Saavedra, CITIZEN PARTICIPATION SPECIALIST-[facility] WINDER [address] [facility] [address] [place] [phone] 11/28/2025 1:30 PM COATING MACHINE FEEDER Office Visit [facility] - GI [address] [place] [address] Tiffanie Brown MD [address] [facility] [place] [address] [place] [phone] Health Maintenance Due Date Last Done Comments COLON MONITORING 1961 COLONOSCOPY - COLON CA SCREENING 1961 CT COLONOGRAPHY - COLON CA SCREENING 1961 FIT - COLON CA SCREENING 1961 FLEX SIG - COLON CA SCREENING 1961 MEDICARE AWV 12 MONTHS 1961 HIV SCREENING 1976 HEPATITIS C SCREENING 12/15/1979 DTAP/TDAP/TD VACCINES (1 - Tdap) 1980 PNEUMOCOCCAL VACCINE 50+ (1 of 2 - PCV) 1980 DIABETES-STATIN 2001 ZOSTER VACCINE (1 of 2) 12/20/2011 Respiratory Syncytial Virus (RSV) Vaccine Pt: or over 60 yrs (1 - Risk 60-74 years 1-dose series) 2021 DEPRESSION SCREENING 10/10/2024 DIABETES - URINE PROTEIN SCREENING 10/10/2024 07/19/2024 DIABETES RETINOPATHY SCREENING 05/15/2025 DIABETES-FOOT EXAM WITH MONOFILAMENT 05/15/2025 COVID-19 VACCINE ( - season) 2025 01/18/2021, 12/23/2020 INFLUENZA VACCINE (#1) 2025 2, 07/18/2020, 06/22/2019, Additional history exists COLOGUARD (AGES [...] 7:05 PM CDT PHOSPHORUS BLOOD STAT 05/21/2025 7:0 5 PM CDT MAGNESIUM BLOOD STAT 05/21/2025 7:05 [...] kidney injury History of endocarditis BLOOD GASES GAOT + COOX PANEL Routine 05/18/2025 10:51 PM [...] of113 resultswithin the time period is included. Glucose WB/POC 273(H) 70 - 99 mg/dL 06/06/2025 11:22 AM CDT [facility] Specimen Type Arterial/C apillary 06/06/2025 11:22 AM CDT [facility] Blood BLOOD SPECIMEN / Unknown 06/06/2025 11:18 AM CDT 06/06/2025 11:22 AM CDT Jennifer Burton MD LAB - POINT OF CARE ORDERABLES Final Result [address] [address], [facility] [phone] * (ABNORMAL) CBC W/O DIFFERENTIAL (06/06/2025 5:19 AM CDT) Only the most recent of18 resultswithin the time period is included. WBC 3.7(L) 4.0 - 10.7 x10E9/L 06/06/2025 6:40 AM [facility] RBC Count 3.90 3.90 - 5.20 x10E12/L 06/06/2025 6:40 AM [facility] Hemoglobin 13.6 11.9 - 15.8 g/dL 06/06/2025 6:40 AM [facility] Hematocrit 40.3 34.8 - 46.1 % 06/06/2025 6:40 AM [facility] MCV 103.3(H) 80.0 - 98.0 fL 06/06/2025 6:40 AM [facility] MCH 34.9(H) 26.7 - 33.6 pg 06/06/2025 6:40 AM [facility] MCHC 33.7 31.7 - 36.3 g/dL 06/06/2025 6:40 AM [facility] RDW-CV 16.0(H) 11.3 - 14.8 % 06/06/2025 6:40 AM [facility] Platelet Count 254 150 - 420 x10E9/L 06/06/2025 6:40 AM [facility] MPV 10.0 7.8 - 11.4 fL 06/06/2025 6:40 AM [facility] Blood BLOOD SPECIMEN / Unknown Lab Venipuncture / Unknown 06/06/2025 5:19 AM CDT 06/06/2025 6:30 AM CDT us Jefry Arizmendi MD LAB - HEMATOLOGY ORDERABLES Fi nal Result Performing Organization Address City/[facility]/ZIP Co de Phone Number [address] [address], [facility] [phone] * (ABNORMAL) COMPREHENSIVE METABOLIC PANEL (06/06/2025 5:19 AM [facility]) Only the most recent of16 resultswithin the time period is included. BUN 19 7 - 26 mg/dL 06/06/2025 6:52 AM [facility] Creatinine 0.70 0.56 - 0.96 mg/dL 06/06/2025 6:52 AM [facility] Sodium 133(L) 136 - 145 mmol/L 06/06/2025 6:52 AM [facility] Potassium 4.5 3.5 - 4.5 mmol/L 06/06/2025 6:52 AM [facility] Chloride 104 98 - 107 mmol/L 06/06/2025 6:52 AM [facility] CO2 25 22 - 29 mmol/L 06/06/2025 6:52 AM [facility] Glucose 115(H) 70 - 99 mg/dL 06/06/2025 6:52 AM [facility] Calcium 8.6 8.4 - 10.2 mg/dL 06/06/2025 6:52 AM [facility] Protein Total 6.1 6.0 - 8.3 g/dL 06/06/2025 6:52 AM [facility] Albumin 2.3(L) 3.4 - 5.0 g/dL 06/06/2025 6:52 AM [facility] Bilirubin Total 2.8(H) 0.2 - 1.2 mg/dL 06/06/2025 6:52 AM [facility] Alkaline Phosphatase 298(H) 40 - 150 U/L 06/06/2025 6:52 AM [facility] ALT 24 5 - 55 U/L 06/06/2025 6:52 AM [facility] AST 41(H) 5 - 34 U/L 06/06/2025 6:52 AM [facility] Anion Gap 4(L) 6 - 16 06/06/2025 6:52 AM [facility] BUN/Creatinine Ratio 27(H) 7 - 23 06/06/2025 6:52 AM [facility] Osmolality Calculated 279 275 - 295 mOsm/kg 06/06/2025 6:52 AM CDT [facility] Albumin/Globulin Ratio 0.6(L) 1.1 - 2.3 06/06/2025 6:52 AM CDT [facility] eGFR by CKD-EPI >90 >=90 mL/min/1.7 3 m2 06/06/2025 6:52 AM CDT [facility] Comment:Estimated Glomerular Filtration Rate (eGFR) calculated using the CKD-EPI Creatinine Equation (2020), per the National Kidney Foundation and [place] [employer] Neph[employer] recommendations. Blood BLOOD SPECIMEN / Unknown Lab Venipuncture / Unknown 06/06/2025 5:19 AM CDT 06/06/2025 6:29 AM CDT Lyndon Fishman MD LAB - CHEMISTRY ORDERABLES F inal Result [address] [address], [facility] [phone] * PHOSPHORUS BLOOD (06/06/2025 5:19 AM CDT) Only the most recent of11 resultswithin the time period is included. Phosphorus 3.5 2.9 - 5.1 mg/dL 06/06/2025 6:52 AM CDT [facility] Blood BLOOD SPECIMEN / Unknown Lab Venipuncture / Unknown 06/06/2025 5:19 AM CDT 06/06/2025 6:29 AM CDT Lyndon Fishman MD LAB - CHEMISTRY ORDERABLES F inal Result [address] [address], [facility] [phone] * MAGNESIUM BLOOD (06/06/2025 5:19 AM CDT) Only the most recent of42 resultswithin the time period is included. Magnesium 1.9 1.6 - 2.6 mg/dL 06/06/2025 6:52 AM CDT [facility] Blood BLOOD SPECIMEN / Unknown Lab Venipuncture / Unknown 06/06/2025 5:19 AM CDT 06/06/2025 6:29 AM CDT Jefry Arizmendi MD LAB - CHEMISTRY ORDERABLES Fin al Result Performing Organization Address [facility]/ZIP Co de Phone Number [address] [address], [place] [phone] * FOLATE (05/30/2025 7:00 PM CDT) [facility] Folate 17.7 7.0 - 31.4 ng/mL 05/30/2025 9:47 PM CDT [facility] Blood BLOOD SPECIMEN / Unknown Lab Venipuncture / Unknown 05/30/2025 7:00 PM CDT 05/30/2025 8:44 PM CDT us Mariah Yadav MD LAB - CHEMISTRY ORDERABLES Final Result Performing Organization Address [facility]/ZIP Co de Phone Number [address] [address], [place] [phone] * (ABNORMAL) VITAMIN B12 (05/30/2025 3:05 AM CDT) [facility] Vitamin B12 1,455(H) 213 - 816 pg/mL 05/30/2025 9:57 AM CDT [facility] Blood BLOOD SPECIMEN / Unknown Lab Venipuncture / Unknown 05/30/2025 3:05 AM CDT 05/30/2025 4:14 AM CDT us Mariah Yadav MD LAB - CHEMISTRY ORDERABLES Final Result Performing Organization Address [facility]/ZIP Co de Phone Number [address] [address], [place] [phone] * ECHO COMPLETE W CONTRAST (05/28/2025 9:26 AM CDT) Only the most recent of2 resultswithin the time period is included. AV area index 1.008 cm /m [facility] Dimensionless Index 0.567 unitless [facility] Myocardial strain charge 2 unitless [facility] IVSd 2D 1.183 cm [facility] I PACS LVIDd 5.651 cm [facility] I PACS LVIDs 5.165 cm [facility] I PACS LVOT diam 2.255 cm [facility] I PACS LVPWd 1.226 cm [facility] I PACS LV biplane EF 25.12 % [facility] PACS LV A2C EF 28.384 % [facility] I PACS LV A4C EF 21.953 % [facility] I PACS LV EDV A2C 187.236 ml [facility] FU JI PACS LV EDV A4C 167.805 ml [facility] PACS LV ESV A2C 134.092 ml [facility]I PACS LV ESV A4C 130.966 ml [facility]I PACS LVOT pk grad 2.263 mmHg [facility] LVOT pk chadd 75.213 cm/s [facility] CV F U PACS LVOT VTI 11.613 cm [facility] I PACS RV-mark basal diam 4.917 cm [facility] RVIDd 4.969 cm [facility] I PACS RVOT diam Doppler 3.206 cm SS [facility] RVOT pk chadd 60.526 cm/s [facility] CV F UJI PACS RVOT VTI 9.109 cm [facility] I PACS LA size 4.617 cm [facility] I PACS RA area 30.984 cm [facility] AV area pk chadd 2.647 cm [facility] AV area cont VTI 2.264 cm [facility] AV pk grad 5.149 mmHg [facility] CV FU JI PACS AV mn grad 3.182 mmHg [facility] CV FU JI PACS AV pk chadd 113.459 cm/s [facility] I PACS AV VTI 20.488 cm [facility] I PACS MV E' lateral chadd 3.018 cm/s SS [facility] MV pk chadd regurg 372.598 cm/s [facility] CV FUJI PACS CO VTI 63.389 cm [facility] CV FUJ I [...] 8:36 AM Patient Status: I/P Study Site: [facility] Primary Location: [facility] EStudy Info Technical Quality: Adequate Exam [...] Attending Physician: Jefry Arizmendi Fellow: [employer] Director: Stuart Caldwell Left Ventricle The left ventricle [...] Eq Chadd) 3.01 cm2/m2 PV Regurgitation Doppler CO End Diastolic Gradient 10 mmHg Mitral Valve [...] Artery Doppler PA End Diastolic Pressure for CO 25 mmHg Aorta Name Value Normal Ascending [...] 8:36 AM Patient Status: I/P Study Site: [facility] Primary Location: [facility] EStudy Info Technical Quality: Adequate Exam [...] Arizmendi Ordering Provider: Jefry Arizmendi Attending Physician: Jerfy Arizmendi Fellow: [employer] Director: Stuart Paulette Left Ventricle The left ventricle is mildly [...] Eq Chadd) 3.01 cm2/m2 PV Regurgitation Doppler CO End Diastolic Gradient 10 mmHg Mitral Valve [...] Artery Doppler PA End Diastolic Pressure for CO 25 mmHg Aorta Name Value Normal Ascending [...] 7 - 26 mg/dL 05/28/2025 7:18 AM [facility] Creatinine 0.83 0.56 - 0.96 mg/dL 05/28/2025 7:18 AM [facility] Sodium 142 136 - 145 mmol/L 05/28/2025 7:18 AM [facility] Potassium 4.1 3.5 - 4.5 mmol/L 05/28/2025 7:18 AM [facility] Chloride 102 98 - 107 mmol/L 05/28/2025 7:18 AM [facility] CO2 34(H) 22 - 29 mmol/L 05/28/2025 7:18 AM [facility] Glucose 165(H) 70 - 99 mg/dL 05/28/2025 7:18 AM [facility] Albumin 2.2(L) 3.4 - 5.0 g/dL 05/28/2025 7:18 AM [facility] Calcium 9.8 8.4 - 10.2 mg/dL 05/28/2025 7:18 AM [facility] Phosphorus 4.6 2.9 - 5.1 mg/dL 05/28/2025 7:18 AM [facility] Anion Gap 6 6 - 16 05/28/2025 7:18 AM [facility] BUN/Creatinine Ratio 42(H) 7 - 23 05/28/2025 7:18 AM [facility] Osmolality Calculated 306(H) 275 - 295 mOsm/kg 05/28/2025 7:18 AM [facility] eGFR by CKD-EPI 79(L) >=90 mL/min/1.7 3 m2 05/28/2025 7:18 AM CDT [facility] Comment:Estimated Glomerular Filtration Rate (eGFR) calculated using the CKD-EPI Creatinine Equation (2020), per the National Kidney Foundation and [place] [employer] Neph[employer] recommendations. Blood BLOOD SPECIMEN / Unknown Lab Venipuncture / Unknown 05/28/2025 6:34 AM CDT 05/28/2025 6:46 AM CDT us Lyndon Fishman MD LAB - CHEMISTRY ORDERABLES F inal Result [facility] [address] [place] [address], [facility] [phone] * SARS-COV-2 (COVID-19) RAPID (05/27/2025 2:39 PM CDT) COVID-19 PCR Not detected Not detected 05/27/20 25 3:18 PM CDT [facility] Microbiology SPECIMEN FROM NASOPHARYNGEAL STRUCTURE / Unknown Collection / Unknown 05/27/2025 2:39 PM CDT 05/27/2025 2:44 PM CDT Narrative [facility] - 05/27/2025 3:18 PM CDT The [...] this EUA assay are available upon request. us Lyndon Fishman MD LAB - MICROBIOLOGY ORDERABLE S Final Result [id number] [place] [address], [facility] [phone] * XR Abdomen Kub Portable (05/25/2025 9:00 PM CDT) Only the most recent of4 resultswithin the time period is included. Anatomical Region Laterality Modality Abdomen Digital Radiogra phy 05/25/2025 9:09 PM CDT Narrative 05/26/2025 2:33 AM CDT PROCEDURE: XR ABDOMEN KUB PORTABLE, DATE/TIME OF EXAM: 05/25/2025 9:00 PM, LOCATION [facility] INDICATION: R57.8: Other shock (HCC) ADDITIONAL CLINICAL INFORMATION: Ordering Provider Reason For Exam: NG placement COMPARISON: CT abdomen pelvis dated 05/15/2025 and abdominal radiograph dated 05/23/2025. FINDINGS/IMPRESSION: Enteric tube courses below the diaphragm with the distal tip superimposing the distal fundus region. Report dictated by Sven Flores MD, (Integrated VIR resident). > Dictated by Wash Oil Pump Operator Helper I, Jimbo Elmore MD have personally reviewed and interpreted this examination/study. > Interpreting Provider: Jimbo Elmore MD on 05/26/2025 2:33 AM Procedure Note Jimbo Elmore MD - 05/26/2025 PROCEDURE: XR ABDOMEN KUB PORTABLE, DATE/TIME OF EXAM: 05/25/2025 9:00PM, LOCATION [facility] INDICATION: R57.8: Other shock (HCC) ADDITIONAL CLINICAL INFORMATION: Ordering Provider Reason For Exam: NG placement COMPARISON: CT abdomen pelvis dated 05/15/2025 and abdominal radiographdated 05/23/2025. FINDINGS/IMPRESSION: Enteric tube courses below the diaphragm with the distal tipsuperimposing the distal fundus region. Report dictated by Sven Flores MD, (Integrated VIR resident). > Dictated by Wash Oil Pump Operator Helper I, Jimbo Elmore MD have personally reviewed [...] in the presence of Shania Patel MD, (residential electrician). > Interpreting Provider: Ann-Marie Campa MD on [...] MD, in the presence of Shania Patel MD,(residential electrician). > Interpreting Provider: Ann-Marie Campa MD on 05/23/2025 9:32 AM Jefry Arizmendi MD DIAGNOSTIC IMAGING ORDERABLES Final Result * (ABNORMAL) BLOOD GASES ART + COOX PANEL (05/22/2025 5:54 AM [facility]) Only the most recent of20 resultswithin the time period is included. pH Arterial 7.45 7.35 - 7.45 pH 05/22/2025 6:02 AM [facility] pO2 Arterial 85 80 - 100 mmHg 05/22/2025 6:02 AM [facility] pCO2 Arterial 46(H) 35 - 45 mmHg 6:02 AM [facility] HCO3 Arterial 32.0(H) 20.0 - 30.0 mmol/L 05/22/2025 6:02 AM [facility] BE Arterial 6.9(H) -2.0 - 2.0 mmol/L 05/22/2025 6:02 AM [facility] Oxyhemoglobin Arterial 94.8 % 05/22/2025 6:02 AM [facility] Dexoyhemoglobin (HHB) % 2.2 % 05/22/2025 6:02 AM [facility] Methemoglobin <0.8 0.0 - 2.0 % 05/22/2025 6:02 AM [facility] Carboxyhemoglobin 2.3(H) 0.0 - 2.0 % 2024 6:02 AM [facility] O2 Content Arterial 19.0 Interpret within clinical context ml/dL 05/22/2025 6:02 AM [facility] Hemoglobin by COOX 14.2 12.0 - 15.6 g/dL 05/22/2025 6:02 AM [facility] O2 Saturation Arterial 98 90 - 100 % 05/22/2025 6:02 AM [facility] FI O2 Arterial 40.0 % 05/22/2025 6:02 AM [facility] Blood, arterial ARTERIAL BLOOD SPECIMEN / Unknown Arterial Puncture / Unknown 05/22/2025 5:54 AM CDT 05/22/2025 5:58 AM CDT Narrative [facility] - 05/22/2025 6:02 AM CDT Carboxyhemoglobin Normal Concentration: Non-smokers: 0-2%; Smokers: 0-9%; Toxic: >20% us Gonzalo Reeves CITIZEN PARTICIPATION [employer] - BLOOD GASES ORDERABL ES Final Result [facility] [address] [place] [address], [facility] [phone] * (ABNORMAL) BLOOD GASES GATO + COOX PANEL (05/21/2025 7:05 PM CDT) Only the most recent of9 resultswithin the time period is included. pH Venous 7.52(H) 7.32 - 7.42 pH 05/21/2025 7:19 PM [facility] pO2 Venous 83(H) 35 - 40 mmHg 05/21/2025 7:19 PM [facility] pCO2 Venous 34(L) 40 - 50 mmHg 05/21/2025 7:19 PM [facility] HCO3 Venous 27.8 20 - 30 mmol/L 05/21/2025 7:19 PM [facility] Base Excess Venous 5.1(H) -2.0 - 2.0 mmol/L 05/21/2025 7:19 PM [facility] Oxyhemoglobin Venous 95.4 % 05/10 7:19 PM [facility] Deoxyhemoglobin (HHB) Venous % 1.1 % 05/21/2025 7:19 PM [facility] Methemoglobin <0.8 0.0 - 2.0 % 05/21/2025 7:19 PM [facility] Carboxyhemoglobin 3.1(H) 0.0 - 2.0 % 2024 7:19 PM CDT [facility] O2 Content Venous 17.9 Interpret within clinical context ml/dL 05/21/2025 7:19 PM CDT [facility] Hemoglobin by COOX 13.3 12.0 - 15.6 g/dL 05/21/2025 7:19 PM CDT [facility] O2 Saturation Venous 99 >=70 % 05/10 7:19 PM CDT [facility] FI O2 Mixed Venous 30.0 % 2024 7:19 PM CDT [facility] Blood BLOOD SPECIMEN / Unknown Venipuncture / Unknown 05/21/2025 7:05 PM CDT 05/21/2025 7:09 PM CDT Narrative [facility] - 05/21/2025 7:19 PM CDT Carboxyhemoglobin Normal Concentration: Non-smokers: 0-2%; Smokers: 0-9%; Toxic: >20% us Jefry Arizmendi MD LAB - BLOOD GASES ORDERABLES F inal Result [address] [address], [place] [phone] * LACTIC ACID BLOOD (05/21/2025 7:05 PM CDT) Only the most recent of27 resultswithin the time period is included. Lactic Acid-Stat 1.5 <=2.0 mmol/L 05/21/2025 8:01 PM CDT [facility] Blood BLOOD SPECIMEN / Unknown Venipuncture / Unknown 05/21/2025 7:05 PM CDT 05/21/2025 7:09 PM CDT Jefry Arizmendi MD LAB - CHEMISTRY ORDERABLES Fin al Result Performing Organization Address City/[facility]/ZIP Co de Phone Number [address] [address], [place] [phone] * (ABNORMAL) CBC W AUTO DIFFERENTIAL (05/21/2025 3:29 AM CDT) Only the most recent of7 resultswithin the time period is included. WBC 9.1 4.0 - 10.7 x10E9/L 05/21/2025 3:51 AM [facility] RBC Count 4.21 3.90 - 5.20 x10E12/L 05/21/2025 3:51 AM [facility] Hemoglobin 13.8 11.9 - 15.8 g/dL 05/21/2025 3:51 AM [facility] Hematocrit 40.2 34.8 - 46.1 % 05/21/2025 3:51 AM [facility] MCV 95.5 80.0 - 98.0 fL 05/21/2025 3:51 AM [facility] MCH 32.8 26.7 - 33.6 pg 05/21/2025 3:51 AM [facility] MCHC 34.3 31.7 - 36.3 g/dL 05/21/2025 3:51 AM [facility] RDW-CV 17.9(H) 11.3 - 14.8 % 05/21/2025 3:51 AM [facility] Platelet Count 149(L) 150 - 420 x10E9/L 05/21/2025 3:51 AM [facility] MPV 9.3 7.8 - 11.4 fL 05/21/2025 3:51 AM [facility] Neutrophil % 79.1(H) 41.0 - 74.0 % 05/21/2025 3:51 AM [facility] Lymphocyte % 5.0(L) 17.0 - 47.0 % 05/21/2025 3:51 AM [facility] Monocyte % 13.5(H) 3.0 - 11.0 % 05/21/2025 3:51 AM [facility] Eosinophil % 1.0 0.0 - 7.0 % 05/21/2025 3:51 AM [facility] Basophil % 0.8 0.0 - 1.6 % 05/21/2025 3:51 AM [facility] Immature Granulocytes % 0.6 0.0 - 1.0 % 05/21/2025 3:51 AM [facility] Neutrophil Absolute 7.19 1.60 - 7.50 x10E9/L 05/21/2025 3:51 AM T [facility] Lymphocyte Absolute 0.45(L) 1.00 - 4.40 x10E9/L 05/21/2025 3:51 AM T [facility] Monocyte Absolute 1.22(H) 0.15 - 1.00 x10E9/L 05/21/2025 3:51 AM T [facility] Eosinophil Absolute 0.09 0.00 - 0.60 x10E9/L 05/21/2025 3:51 AM T [facility] Basophil Absolute 0.07 0.00 - 0.13 x10E9/L 05/21/2025 3:51 AM [facility] Blood BLOOD SPECIMEN / Unknown Venipuncture / Unknown 05/21/2025 3:29 AM CDT 05/21/2025 3:40 AM CDT us Carline Darby DO LAB - HEMATOLOGY ORDERABLES Ayanna l Result [facility] [address] [place] [address], [facility] [phone] * CT Head Wo Contrast (05/20/2025 6:18 [...] 2:28 PM Patient Status: I/P Study Site: [facility] Primary Location: [facility] EStudy Info Technical Quality: Good Exam Type: [...] Attending Physician: Linda Lezama Fellow: Bridgett Silverio College Director: Jamila Robison Performing Physician: Linda Lezama College Director: Bridgett Silverio Complications * There were no [...] ml Atria Name Value Normal LA/RA Appendage DAVID Sandra Peak Emptying Velocity 19 cm/s Report Signatures Finalized by Linda Lezama on 05/22/2025 09:58 AM Reviewed by Fellow Bridgett Silverio on 05/21/2025 02:10 PM Procedure Note Linda Lezama MD - 05/22/2025 Summary * Left ventricular systolic function has beat to beat variability dueto atrial fibrillation. On average, the function is moderately bbeeagx62-04% by visual estimate. * Spontaneous echo contrast [...] 2:28 PM Patient Status: I/P Study Site: [facility] Primary Location: [facility] EStudy Info Technical Quality: Good Exam Type: [...] Attending Physician: Linda Lezama Fellow: Bridgett Silverio College Director: Jamila Robison Performing Physician: Linda Lezama College Director: Bridgett Silverio Complications * There were no [...] fibrillation. On average, the function is moderately [id number]% by visual estimate. Right Ventricle The right [...] Fellow Bridgett Silverio on 05/21/2025 02:10 PM us Linda Lezama MD ECHO CUPID Final Result * EKG 12-Lead (05/20/2025 9:26 AM CDT) Only the most recent of5 resultswithin the time period is included. Ventricular Rate 125 BPM [facility] QRS Duration ms 116 ms [facility] Q-T Interval ms 338 ms [facility] QTC Calculation (Bezet) 487 ms [facility] Calculated R [place] 100 degrees [facility] Calculated T [place] -84 degrees [facility] Interpretation EKG ATRIAL FIBRILLATION WITH RAPID VENTRICULAR RESPONSE LOW VOLTAGE QRS ANTEROLATERAL INFARCT , AGE UNDETERMINED ABNORMAL ECG WHEN COMPARED WITH ECG OF 20-MAY-2025 09:25 NO SIGNIFICANT CHANGE WAS FOUND Confirmed by DAREK PARADA MD ([id number]) on 05/21/2025 8:38:24 AM [facility] MUSE 05/20/2025 9:26 AM CDT 05/21/2025 8:38 AM CDT Linda Lezama MD ECG ORDERABLES Edited Resul t - Final Performing Organization Address [facility] Co de Phone Number [facility] MUSE * OSMOLALITY URINE (05/20/2025 3:42 AM CDT) Only the most recent of4 resultswithin the time period is included. Osmolality Urine 444 50 - 1,200 mOsm/kg 05/20/2025 4:07 AM CDT [facility] Urine URINE SPECIMEN OBTAINED BY CLEAN CATCH PROCEDURE / Unknown Collection / Unknown 05/20/2025 3:42 AM CDT 05/20/2025 3:46 AM CDT Linda Lezama MD LAB - URINE CHEMISTRY ORDERA BLES Final Result Performing Organization Address [facility] de Phone Number [address] [address], [place] [phone] * OSMOLALITY BLOOD (05/20/2025 3:06 AM CDT) Only the most recent of4 resultswithin the time period is included. Osmolality 295 275 - 295 mOsm/kg 05/20/2025 4:07 AM CDT [facility] Blood BLOOD SPECIMEN / Unknown Venipuncture / Unknown 05/20/2025 3:06 AM CDT 05/20/2025 3:26 AM CDT Linda Lezama MD LAB - CHEMISTRY ORDERABLES F inal Result Performing Organization Address [facility] Co de Phone Number [address] [address], [place] [phone] * CULTURE SPUTUM+GRAM STAIN (05/19/2025 4:20 PM CDT) Culture Light normal oropharyngeal alisa DEZ 05/21/2025 8:08 AM CDT [facility]CRO[facility] Gram Stain Moderate Gram-negative bacilli 05/21/2025 8:08 AM CDT [facility] Gram Stain Moderate Gram-positive cocci 05/21/2025 8:08 AM CDT [facility] Gram Stain Light Yeast 05/21/2025 8:08 AM CDT [facility] Gram Stain >= 25 per low power field Polymorphonuclear cells 05/21/2025 8:08 AM CDT [facility] Gram Stain <10 per low power field Squamous epithelial cells 05/21/2025 8:08 AM CDT [facility] Microbiology SPUTUM / Unknown Collection / Unknown 05/19/2025 4:20 PM CDT 05/19/2025 4:26 PM CDT Ha Hernandez MD LAB - MICROBIOLOGY ORDERABLES Fi nal Result [facility] [address] [place] [address], [facility] [phone] * DIGOXIN LEVEL (05/19/2025 10:21 AM CDT) Digoxin 0.8 0.5 - 1.2 ng/mL 05/19/2025 2:57 PM CDT [facility] Blood BLOOD SPECIMEN / Unknown Venipuncture / Unknown 05/19/2025 10:21 AM CDT 05/19/2025 10:25 AM CDT Narrative [facility] - 05/19/2025 2:57 PM CDT Therapeutic reference range for heart failure is 0.5-0.9 ng/mL. For atrial fibrillation, it is 0.8-1.2 ng/mL. The management trainer of Digoxin Immun[employer] has stated that no immunoassay technique is suitable for quantitating digoxin in plasma/serum from patients on antibody fragment therapy. Linda Lezama MD LAB - CHEMISTRY ORDERABLES F inal Result [address] [address], [place] [phone] * TRIGLYCERIDES BLOOD (05/19/2025 4:00 AM CDT) Pathologist [facility] Triglycerides 131 <150 mg/dL 05/19/2025 4:35 AM CDT [facility] Comment: ATP III Classification of Triglycerides: <150 mg/dL: Normal 150 - 199 mg/dL: Borderline High 200 - 400 mg/dL: High >500 mg/dL: Very High Blood BLOOD SPECIMEN / Unknown Venipuncture / Unknown 05/19/2025 4:00 AM CDT 05/19/2025 4:07 AM CDT Linda Lezama MD LAB - CHEMISTRY ORDERABLES F inal Result Performing Organization Address [facility] Co de Phone Number [address] [address], [place] [phone] * (ABNORMAL) SVO2 FOR RECALIBRATION (05/18/2025 3:05 AM CDT) Only the most recent of3 resultswithin the time period is included. [facility] SVO2 for Recalibration 81.6(H) 66.0 - 77.0 % 05/18/2025 3:29 AM CDT [facility] Blood BLOOD SPECIMEN / Unknown Venipuncture / Unknown 05/18/2025 3:05 AM CDT 05/18/2025 3:25 AM CDT us Linda Lezama MD LAB - CHEMISTRY ORDERABLES F inal Result Performing Organization Address [facility]/ZIP Co de Phone Number [address] [address], [place] [phone] * (ABNORMAL) BILIRUBIN DIRECT (05/18/2025 3:05 AM CDT) [facility] Bilirubin Conjugated 4.4(H) 0.1 - 0.5 mg/dL 05/18/2025 4:04 AM CDT [facility] Blood BLOOD SPECIMEN / Unknown Venipuncture / Unknown 05/18/2025 3:05 AM CDT 05/18/2025 3:31 AM CDT Linda Lezama MD LAB - CHEMISTRY ORDERABLES F inal Result [facility] [address] [place] [address], [facility] [phone] * MRSA PCR (05/17/2025 2:40 PM CDT) MRSA DNA by PCR Not detected Not detected 05/17/2025 9:06 PM CDT [facility]CRO[facility]OLOG[facility] Microbiology SPECIMEN FROM NASAL [facility]OSSAE / Unknown Collection / Unknown 05/17/2025 2:40 PM CDT 05/17/2025 2:48 PM CDT Narrative [facility] - 05/17/2025 9:06 PM CDT Methicillin-resistant Staphylococcus aureus (MRSA) DNA is not detected (presumed not colonized with MRSA). Linda Lezama MD LAB - MICROBIOLOGY ORDERABLE S Final Result Performing Organization Address City/[facility] Co de Phone Number [facility]CRO[facility] [address] [place] [address], [facility] [phone] * CULTURE BLOOD (05/17/2025 2:40 PM CDT) Only the most recent of2 resultswithin the time period is included. Culture No growth day 5 DEZ 05/22/2025 7:31 PM CDT [facility] Blood PERIPHERAL BLOOD / Unknown Venipuncture / Unknown 05/17/2025 2:40 PM CDT 05/17/2025 2:48 PM CDT Linda Lezama MD LAB - MICROBIOLOGY ORDERABLE S Final Result Performing Organization Address City/[facility]/ZIP Co de Phone Number [facility]CRO[facility]OLOG[facility] [address] [place] [address], [facility] [phone] * URINALYSIS REFLEX MICROSCOPIC REFLEX CULTURE (05/17/2025 2:39 PM CDT) Color UA Yellow Yellow, Straw 05/17/2025 3:12 PM CDT [facility] Clarity UA Clear Clear 05/17/2025 3:12 PM CDT [facility] Glucose UA Normal Normal 05/17/2025 3:12 PM CDT [facility] Bilirubin UA Negative Negative 05/17/2025 3:12 PM CDT [facility] Ketone UA Negative Negative 05/17/2025 3:12 PM CDT [facility] Specific [place] UA 1.006 1.005 - 1.030 05/17/2025 3:12 PM CDT [facility] Blood UA Negative Negative 05/17/2025 3:12 PM CDT [facility] pH UA 7.0 5.0 - 8.0 05/17/2025 3:12 PM CDT [facility] Protein UA Negative Negative 05/17/2025 3:12 PM CDT [facility] Urobilinogen UA Normal Normal mg/dL 05/17/2025 3:12 PM CDT [facility] Nitrite UA Negative Negative 05/17/2025 3:12 PM CDT [facility] Leukocyte Esterase UA Negative Negative 05/17/2025 3:12 PM CDT [facility] Reflex Status Culture not indicated 05/17/2025 3:12 PM CDT [facility] Urine Microscopy Urine microscopy not indicated 05/17/2025 3:12 PM CDT [facility] Urine URINE SPECIMEN OBTAINED BY SINGLE CATHETERIZATION OF URINARY BLADDER / Unknown Collection / Unknown 05/17/2025 2:39 PM CDT 05/17/2025 2:47 PM CDT us Linda Lezama MD LAB - URINALYSIS ORDERABLES Final Result [facility] [address] [place] [address], [place] [phone] * US Abdomen Ltd W Comp Doppler [...] post cholecystectomy. > Dictated by Grace Lawrence (residential electrician). > Dictated by Grace Lawrence 05/17/2025 2:55 PM > Dictated by [employer] Pump Operator Helper I, Kenney Storm have personally reviewed and interpreted this examination/study. [...] post cholecystectomy. > Dictated by Grace Lawrence (residential electrician). > Dictated by Grace Lawrence 05/17/2025 2:55 PM > Dictated by [employer] Operator Helper Kenney Barillas have personally reviewed and interpreted this examination/study. [...] - 145 mmol/L 05/17/2025 4:05 AM CDT [facility] Blood BLOOD SPECIMEN / Unknown Venipuncture / Unknown 05/17/2025 3:11 AM CDT 05/17/2025 3:21 AM CDT us Linda Lezama MD LAB - CHEMISTRY ORDERABLES F inal Result [address] [address], [facility] [phone] * (ABNORMAL) BASIC METABOLIC PANEL (CALCIUM TOTAL) (05/16/2025 10:47 AM CDT) BUN 29(H) 7 - 26 mg/dL 05/16/2025 11:45 AM CDT [facility] Creatinine 1.39(H) 0.56 - 0.96 mg/dL 05/16/2025 11:45 AM CDT [facility] Sodium 123(LL) 136 - 145 mmol/L 05/16/2025 11:45 AM CDT [facility] Potassium 5.3(H) 3.5 - 4.5 mmol/L 05/16/2025 11:45 AM CDT [facility] Chloride 87(L) 98 - 107 mmol/L 05/16/2025 11:45 AM CDT [facility] CO2 25 22 - 29 mmol/L 05/16/2025 11:45 AM [facility] Glucose 113(H) 70 - 99 mg/dL 05/16/2025 11:45 AM [facility] Calcium 9.7 8.4 - 10.2 mg/dL 05/16/2025 11:45 AM [facility] Anion Gap 11 6 - 16 05/16/2025 11:45 AM [facility] BUN/Creatinine Ratio 21 7 - 23 05/16/2025 11:45 AM [facility] Osmolality Calculated 263(L) 275 - 295 mOsm/kg 05/16/2025 11:45 AM [facility] eGFR by CKD-EPI 43(L) >=90 mL/min/1.7 3 m2 05/16/2025 11:45 AM [facility] Comment:Estimated Glomerular Filtration Rate (eGFR) calculated using the CKD-EPI Creatinine Equation (2020), per the National Kidney Foundation and [place] [employer] Neph[employer] recommendations. Blood BLOOD SPECIMEN / Unknown Lab Venipuncture / Unknown 05/16/2025 10:47 AM CDT 05/16/2025 11:03 AM CDT Adryan Shabazz MD LAB - CHEMISTRY ORDERABLES Final Result [address] [address], [facility] [phone] * (ABNORMAL) POTASSIUM BLOOD (05/16/2025 10:47 AM CDT) Only the most recent of3 resultswithin the time period is included. Potassium 5.3(H) 3.5 - 4.5 mmol/L 05/16/2025 11:44 AM T [facility] Blood BLOOD SPECIMEN / Unknown Lab Venipuncture / Unknown 05/16/2025 10:47 AM CDT 05/16/2025 11:03 AM CDT us Dionne Benitez MD LAB - CHEMISTRY ORDERAB LES Final Result [place] [id number] [place] [address], [facility] [phone] * (ABNORMAL) HEMOGLOBIN A1C (05/16/2025 6:32 AM CDT) Hemoglobin A1c 7.2(H) <=5.6 % 05/16/2025 8:36 AM CDT [facility] Estimated Average Glucose 160 mg/dL 05/16/2025 8:36 AM CDT [facility] Comment: HbA1c Interpretation: Normal : < 5.7% Pre-diabetes: 5.7-6.4% Diabetes: Equal to or greater than 6.5% Test results diagnostic of diabetes should be repeated for confirmation. Treatment target values recommended by ADA and other clinical organizations should be used to evaluate metabolic control in patients. Reference: [place] [employer] Association, Standards of Care in Diabetes [...] DO LAB - CHEMISTRY ORDERABLES Final Result [address] [address], [facility] [phone] * URINALYSIS REFLEX TO MICROSCOPIC NO CULTURE (05/16/2025 12:17 AM CDT) Color UA Yellow Yellow, Straw 05/16/2025 12:33 AM CDT [facility] Clarity UA Clear Clear 05/16/2025 12:33 AM CDT [facility] Glucose UA Normal Normal 05/16/2025 12:33 AM CDT [facility] Bilirubin UA Negative Negative 05/16/2025 12:33 AM CDT [facility] Ketone UA Negative Negative 05/16/2025 12:33 AM CDT [facility] Specific [place] UA 1.018 1.005 - 1.030 05/16/2025 12:33 AM T [facility] Blood UA Negative Negative 05/16/2025 12:33 AM [facility] pH UA 5.0 5.0 - 8.0 05/16/2025 12:33 AM [facility] Protein UA Negative Negative 05/16/2025 12:33 AM [facility] Urobilinogen UA Normal Normal mg/dL 05/16/2025 12:33 AM [facility] Nitrite UA Negative Negative 05/16/2025 12:33 AM T [facility] Leukocyte Esterase UA Negative Negative 05/16/2025 12:33 AM [facility] Urine Microscopy Urine microscopy not indicated 05/16/2025 12:33 AM [facility] Urine URINE SPECIMEN OBTAINED BY CLEAN CATCH PROCEDURE / Unknown Collection / Unknown 05/16/2025 12:17 AM CDT 05/16/2025 12:23 AM CDT Carline Darby DO LAB - URINALYSIS ORDERABLES Ayanna l Result [address] [address], [facility] [phone] * SODIUM URINE RANDOM (05/16/2025 12:17 AM CDT) Sodium Urine 77 Not Established mmol/L 05/16/2025 12:46 AM T [facility] Urine URINE SPECIMEN OBTAINED BY CLEAN CATCH PROCEDURE / Unknown Collection / Unknown 05/16/2025 12:17 AM CDT 05/16/2025 12:23 AM CDT Carline Darby DO LAB - URINE CHEMISTRY ORDERABLES Final Result [address] [address], [facility] [phone] * UREA NITROGEN URINE RANDOM (05/16/2025 12:17 AM CDT) Urea Nitrogen Random Urine 193 Not Established mg/dL 05/16/2025 12:46 AM CDT [facility] Urine URINE SPECIMEN OBTAINED BY CLEAN CATCH PROCEDURE / Unknown Collection / Unknown 05/16/2025 12:17 AM CDT 05/16/2025 12:23 AM CDT [facility] DO LAB - URINE CHEMISTRY ORDERABLES Final Result Performing Organization Address City/[facility]/ZIP Co de Phone Number [address] [address], [facility] [phone] * CREATININE URINE RANDOM (05/16/2025 12:17 AM CDT) Creatinine Urine 23.02 Not Established mg/dL 05/16/2025 12:46 AM CDT [facility] Urine URINE SPECIMEN OBTAINED BY CLEAN CATCH PROCEDURE / Unknown Collection / Unknown 05/16/2025 12:17 AM CDT 05/16/2025 12:23 AM CDT Carline Darby LAB - URINE CHEMISTRY ORDERABLES Final Result Performing Organization Address City/[facility]/ZIP Co de Phone Number [address] [address], [facility] [phone] * (ABNORMAL) BILIRUBIN TOTAL+DIRECT BLOOD PANEL (05/15/2025 8:20 PM CDT) Bilirubin Total 7.0(H) 0.2 - 1.2 mg/dL 03/2025 8:51 PM CDT [facility] Bilirubin Conjugated 4.9(H) 0.1 - 0.5 mg/dL 05/15/2025 8:51 PM CDT [facility] Bilirubin Unconjugated 2.1 Unconjugated Bilirubin is a calculated value: Reference ranges have not been established. mg/dL 05/15/2025 8:51 PM CDT [facility] Blood BLOOD SPECIMEN / Unknown Venipuncture / Unknown 05/15/2025 8:20 PM CDT 05/15/2025 8:23 PM CDT Juno Hernandez MD LAB - CHEMISTRY ORDERABLES Final Result [facility] [address] [place] [id number], [facility] [phone] * CT Chest Pe W Abd Pelvis [...] verification. > Dictated by Tom Dinh DO, (residential electrician). > Dictated by [employer] Helper I, Ann-Marie Campa MD have personally reviewed and interpreted this examination/study. > Interpreting Provider: Ann-Marie Campa MD on 05/15/2025 10:20 PM Narrative 05/15/2025 10:20 PM CDT PROCEDURE: CT CHEST PE W ABD PELVIS W CONT, DATE/TIME OF EXAM: 05/15/2025 7:52 PM, LOCATION [facility] INDICATION: R06.02: Shortness of breath Ordering Provider [...] CONT, DATE/TIME OF EXAM:05/15/2025 7:52 PM, LOCATION [facility] INDICATION: R06.02: Shortness of breath Ordering Provider [...] verification. > Dictated by Tom Dinh DO, (residential electrician). > Dictated by [employer], Ann-Marie Campa MD have personally reviewed and interpreted this examination/study. > Interpreting Provider: Ann-Marie Campa MD on 05/15/2025 10:20 PM us Juno Hernandez MD CT ORDERABLES Final Resul t * (ABNORMAL) TROPONIN-I HIGH SENSITIVE REFLEX 1HOUR (05/15/2025 4:06 PM CDT) Troponin I High Sensitive 23(H) <=14 ng/L 05/15/2025 4:53 PM CDT [facility] [place] Troponin I HS <0 <6 ng/L 05/15/2025 4:53 PM CDT [facility] Blood BLOOD SPECIMEN / Unknown Venipuncture / Unknown 05/15/2025 4:06 PM CDT 05/15/2025 4:11 PM CDT Sweta Lundy PA-C LAB - CHEMISTRY ORDERABLES Fi nal Result Performing Organization Address [facility]/ZIP Co de Phone Number [address] [id number], [place] [phone] * (ABNORMAL) TROPONIN-I HIGH SENSITIVE BASELINE + 1HR (05/15/2025 2:54 PM CDT) Troponin I High Sensitive 24(H) <=14 ng/L 05/15/2025 3:43 PM CDT [facility] Blood BLOOD SPECIMEN / Unknown Venipuncture / Unknown 05/15/2025 2:54 PM CDT 05/15/2025 3:00 PM CDT Sweta Lundy PA-C LAB - CHEMISTRY ORDERABLES Fi nal Result Performing Organization Address [facility] Co de Phone Number [address] [address], [place] [phone] * (ABNORMAL) PT-INR (05/15/2025 2:54 PM CDT) PT 29.5(H) 12.1 - 14.8 Seconds 05/15/2025 3:49 PM CDT [facility] INR 2.9 See Comment 05/15/2025 3:49 PM CDT [facility] Comment:The suggested therap eutic range for standard coumadin (warfarin) therapy is an INR of 2.0-3.0. For high-risk patients (Mechanical Mitral Valve Prosthesis, etc.), the suggested prophylactic therapeutic range is an INR of 2.5-3.5. Blood BLOOD SPECIMEN / Unknown Venipuncture / Unknown 05/15/2025 2:54 PM CDT 05/15/2025 3:00 PM CDT Sweta Lundy PA-C LAB - COAGULATION ORDERABLES Final Result Performing Organization Address [facility] Co de Phone Number [address] [address], [facility] [phone] * (ABNORMAL) B-TYPE NATRIURETIC PEPTIDE (05/15/2025 2:54 PM CDT) BNP 2,209(H) <100 pg/mL 05/15/2025 3:43 PM CDT [facility] Comment: A decision threshold of 100 [...] ORDERABLES Fi nal Result Performing Organization Address [facility] Co de Phone Number [address] [address], [facility] [phone] * (ABNORMAL) LIPASE BLOOD (05/15/2025 2:54 PM CDT) Lipase 7(L) 8 - 78 U/L 05/15/2025 3:45 PM CDT [facility] Blood BLOOD SPECIMEN / Unknown Venipuncture / Unknown 05/15/2025 2:54 PM CDT 05/15/2025 3:00 PM CDT Narrative [facility] - 05/15/2025 3:45 PM CDT Lipase results from the [employer] analyzer may not be comparable with other methodologies. Sweta Lundy PA-C LAB - CHEMISTRY ORDERABLES Fi nal Result [facility] [address] [place] [address], [facility] [phone] * XR CHEST 2VW (05/15/2025 2:41 PM [...] Final Result from Last 3 Months Insurance [facility] * Guarantor: LORETTA [employer] Account Type Relation to Patient Date of Phone Billing Address Personal/Family 1960 [address] * Guarantor: LORETTA PENN Account Type Relation to Patient Date of Phone Billing Address Personal/Family 1960 [address] [place] [phone] Advance Directives Documents on File Type Date Recorded 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
--- OUTSIDE RECORDS SUMMARY | 2025-07-21 16:24 | XMS_ITS | Data Portability ---
Author Organization [facility] AMELIACatalina Diana Address [address] [place] [address] Assessment No assessment recorded. Plan of Treatment Reminders Order Date Submit Date Provider Last Modified By Organization Details Last Modified Time Details Appointments None recorded. Lab urinalysis , dipstick 2016 017 YONATAN In-Office Order, Internal Use Only DO Not Attach Compendium DO Not Attach Compendium, Do Not Delete/merge, [id number] 7 14:42:16 culture, urine 2016 017 YONATAN [facility], [address] [facility], [address], [place], [address], 7 07:14:00 hepatitis C genotype, serum or plasma 2016 017 YONATAN [facility], [address] [facility], [address], [place], [address], 7 14:35:36 urinalysis , dipstick 2016 017 [email or web address] 6 In-Office Order, Internal Use Only DO Not Attach Compendium DO Not Attach Compendium, Do Not Delete/merge, [id number] 7 09:29:34 culture, urine 2016 017 YONATAN [facility], [address] [facility], [address], [place], [address], 7 11:15:05 culture, urine 2016 017 YONATAN [facility], [address] [facility], [address], [place], [address], 7 06:40:25 urinalysis , dipstick 2016 017 [email or web address] 6 In-Office Order, Internal Use Only DO Not Attach Compendium DO Not Attach Compendium, Do Not Delete/merge, [id number] 7 21:11:40 culture, urine 2015 016 DBA_PATCH_ [id number] [facility], [address] [facility], [address], [place], [address], 6 04:33:21 Referral endocrinol ogy referral - Please eval and treat ...... 2016 017 [email or web address] Not available 7 12:53:[address] referral - Please eval and treat . thank you 2016 017 [email or web address] Not available 7 17:42:07 Procedures None recorded. Surgeries None recorded. Imaging None recorded. Medication Orders Januvia 100 mg tablet 2016 017 INTERFACE [facility]883, [address], [place], [place], [id number], 7 14:39:09 Humulin 70/30 U-100 Insulin 100 unit/mL subcutaneo us suspension 2016 017 INTERFACE [facility]43452, [address], [place], [place], [id number], 7 14:42:06 citalopram 40 mg tablet 2016 017 INTERFACE [facility]57367, [address], [place], [place], [id number], 7 14:45:14 ciprofloxa mimi 500 mg tablet 2016 017 [facility], [address], [place], [place], [id number], 7 14:43:40 lisinopril 10 mg tablet 2016 017 INTERFACE [facility]81605, [address], [place], [place], [id number], 7 14:46:07 Humulin 70/30 U-100 Insulin 100 unit/mL subcutaneo us suspension 2016 017 [facility], [address], [id number], 7 14:44:54 ranitidine 150 mg tablet 2016 017 [facility], [address], [id number], 7 14:43:00 Dulera 200 mcg-5 mcg/actuat ion HFA aerosol inhaler 2016 017 [facility], [address], [place], [place], [id number], 7 16:46:56 nitrofuran toin monohydrat e/macrocry stals 100 mg capsule 2016 017 [email or web address] [facility] #48023, [address], [id number], 7 16:46:03 baclofen 10 mg tablet 2016 017 [email or web address] 6 [facility] #20893, [address], [id number], 7 16:46:03 ciprofloxa mimi 500 mg tablet 2015 016 DBA_PATCH_ [id number] Not available 6 04:33:19 phenazopyr idine 200 mg tablet 2015 016 DBA_PATCH_ [id number] Not available 6 04:33:19 baclofen 10 mg tablet 2015 016 DBA_PATCH_ [id number] Not available 6 04:33:35 miconazole nitrate 2 [...] By Organization Details Last Modified Time 02/01/2017 [id number] ff, wipe front t o back with toilet tissue , no bubble baths [email or web address] Not available 02/01/2017 16:32:41 Reason for Referral [employer] Referral for Vi ral hepatitis C hepatitis c Please eval and treat . thank you Referring Physician: Jey Klein, Family Medicine, Encounter Date: 04/04/2017 Endocrinology Referral for [...] Attach Compendium, Do Not Delete/merge, 04/04/2017 14:32:33 04/04/2004/04/2017 urina lysis , dipst ick pH 6.0 Not Available In-Office Order Internal Use Only DO Not Attach Compendium DO Not Attach Compendium, Do Not Delete/merge, 04/04/2017 14:32:33 04/04/2004/04/2017 urina lysis , dipst ick Blood Non-He molyze d: Trace Not Available In-Office Order Internal Use Only DO Not Attach Compendium DO Not Attach Compendium, Do Not Delete/merge, 04/04/2017 14:32:33 04/04/2004/04/2017 urina lysis , dipst ick Specific [place] 1.005 Not Available In-Off ice Order Internal [...] Attach Compendium, Do Not Delete/merge, 04/04/2017 14:32:33 04/04/2004/04/2017 urina lysis , dipst ick Glucose 1000 Not Available In-Office Order Internal Use Only DO Not Attach Compendium DO Not Attach Compendium, Do Not Delete/merge, 04/04/2017 14:32:33 04/04/2004/04/2017 urina lysis , dipst ick Appearance Clear Not Available In-Offi ce Order Internal Use Only DO Not Attach Compendium DO Not Attach Compendium, Do Not Delete/merge, 04/04/2017 14:32:33 04/04/2004/04/2017 urina lysis , dipst ick Color Yellow [...] Attach Compendium, Do Not Delete/merge, 02/01/2017 14:35:30 02/02/2002/01/2017 urina lysis , dipst ick Protein 100 Not Available In-Office Order Internal Use Only DO Not Attach Compendium DO Not Attach Compendium, Do Not Delete/merge, 02/01/2017 14:35:30 02/02/2002/01/2017 urina lysis , dipst ick pH 5.0 Not Available In-Office Order Internal Use Only DO Not Attach Compendium DO Not Attach Compendium, Do Not Delete/merge, 02/01/2017 14:35:30 02/02/2002/01/2017 urina lysis , dipst ick Blood Large Not Available In-Office Order Internal Use Only DO Not Attach Compendium DO Not Attach Compendium, Do Not Delete/merge, 02/01/2017 14:35:30 02/02/2002/01/2017 urina lysis , dipst ick Specific [place] 1.030 Not Available In-Off ice Order Internal Use Only DO Not Attach Compendium DO Not Attach Compendium, Do Not Delete/merge, 02/01/2017 14:35:30 02/02/2002/01/2017 urina lysis , dipst ick Ketone Negati ve Not Available In-Office Order Internal Use Only DO Not Attach Compendium DO Not Attach Compendium, Do Not Delete/merge, 02/01/2017 14:35:30 02/02/2002/01/2017 urina lysis , dipst ick Bilirubin Small Not Available In-Offic e Order Internal Use Only DO Not Attach Compendium DO Not Attach Compendium, Do Not Delete/merge, 02/01/2017 14:35:30 02/02/2002/01/2017 urina lysis , dipst ick Glucose 1000 Not Available In-Office Order Internal Use Only DO Not Attach Compendium DO Not Attach Compendium, Do Not Delete/merge, 02/01/2017 14:35:30 02/02/2002/01/2017 urina lysis , dipst ick Appearance Cloudy Not Available In-Offi ce Order Internal Use Only DO Not Attach Compendium DO Not Attach Compendium, Do Not Delete/merge, 02/01/2017 14:35:30 02/02/20 17 02/01/2017 urina lysis , dipst ick Color Dark Yellow Not Available In-Office Order Internal Use Only DO Not Attach Compendium DO Not Attach Compendium, Do Not Delete/merge, 02/01/2017 14:35:30 11/25/19 17 11/25/2016 urina lysis [...] Attach Compendium, Do Not Delete/merge, 11/25/2016 16:31:59 11/25/1911/25/2016 urina lysis , dipst ick pH 5.0 Not Available In-Office Order Internal Use Only DO Not Attach Compendium DO Not Attach Compendium, Do Not Delete/merge, 11/25/2016 16:31:59 11/25/19 17 11/25/2016 urina lysis , dipst ick Blood Small Not Available In-Office Order Internal Use Only DO Not Attach Compendium DO Not Attach Compendium, Do Not Delete/merge, 11/25/2016 16:31:59 11/25/1911/25/2016 urina lysis , dipst ick Specific [place] 1.030 Not Available In-Off ice Order Internal Use Only DO Not Attach Compendium DO Not Attach Compendium, Do Not Delete/merge, [id number] 11/25/2016 16:31:59 11/25/19 17 11/25/2016 urina lysis , dipst ick Ketone Trace Not Available In-Office Order Internal Use Only DO Not Attach Compendium DO Not Attach Compendium, Do Not Delete/merge, [id number] 11/25/2016 16:31:59 11/25/19 17 11/25/2016 urina lysis , dipst ick Bilirubin Small Not Available In-Offic e Order Internal Use Only DO Not Attach Compendium DO Not Attach Compendium, Do Not Delete/merge, [id number] 11/25/2016 16:31:59 11/25/19 17 11/25/2016 urina lysis , dipst ick Glucose 500 Not Available In-Office Order Internal Use Only DO Not Attach Compendium DO Not Attach Compendium, Do Not Delete/merge, [id number] 11/25/2016 16:31:59 11/25/19 17 11/25/2016 urina lysis , dipst ick Appearance Slight ly Cloudy Not Available In-Office Order Internal Use Only DO Not Attach Compendium DO Not Attach Compendium, Do Not Delete/merge, [id number] 11/25/2016 16:31:59 11/25/19 17 11/25/2016 urina lysis , dipst ick Color Dark Yellow Not Available In-Office Order Internal Use Only DO Not Attach Compendium DO Not Attach Compendium, Do Not Delete/merge, [id number] 11/25/2016 16:31:59 09/21/20 16 09/23/2016 cultu re, urine urine culture,comp rehensive FINAL REPORT Not Available [facility] ([facility]) [address], [place], [address], 09/23/2016 07:13:56 09/21/20 16 09/23/2016 cultu re, urine result 1 COMMEN T MIXED UROGE NITAL JOSHUA 50,00 0-100 ,000 COLON Y FORMI NG UNITS PER ML Not Available [facility] ([facility]) [address] [place], [address], 09/23/2016 07:13:56 11/25/19 17 11/28/2016 cultu re, urine urine culture,comp rehensive FINAL REPORT abnormal Not Available [facility] ([facility]) [address] [place], [address], 11/28/2016 06:40:25 11/25/19 17 11/28/2016 cultu re, urine result 1 ESCHER ICHIA COLI abnormal GREAT ER THAN 100,0 00 COLON Y FORMI NG UNITS PER ML Not Available [facility] ([facility]) [address] [place], [address], 11/28/2016 06:40:25 11/25/19 17 11/28/2016 cultu re, [...] Available [facility] ([facility]) [address] [place], [address], 11/28/2016 06:40:25 02/02/20 17 02/04/2017 cultu re, urine urine culture,comp rehensive FINAL REPORT abnormal Not Available [facility] ([facility]) [address] [place], [address], 02/04/2017 11:15:05 02/02/20 17 02/04/2017 cultu re, urine result 1 ESCHER ICHIA COLI abnormal GREAT ER THAN 100,0 00 COLON Y FORMI NG UNITS PER ML Not Available [facility] ([facility]) [address] [facility] [facility], [place], [address], 02/04/2017 11:15:05 02/02/20 17 02/04/2017 cultu re, [...] IC ACID S AMPIC ILLIN R CEFEP BABY S CEFTR IAXON E S CEFUR OXIME S CEPHA LOTHI N S CIPRO FLOXA MIMI S ERTAP ENEM S GENTA MICIN S IMIPE NEM S LEVOF LOXAC IN S NITRO FURAN TOIN S PIPER ACILL IN R TETRA CYCLI NE S TOBRA MYCIN S TRIME THOPR IM/GALLEGOS LFA S Not Available [facility] ([facility]) [address] [facility] [facility], [place], [address], 02/04/2017 11:15:05 04/04/20 17 04/06/2017 cultu re, urine urine culture,comp rehensive FINAL REPORT Not Available [facility] ([facility]) [address] [place], [address], 04/06/2017 07:13:59 04/04/20 17 04/06/2017 cultu re, urine result 1 COMMEN T MIXED UROGE NITAL JOSHUA 10,00 0-25, 000 COLON Y FORMI NG UNITS PER ML Not Available [facility] ([facility]) [address] [facility], [place], [address], 04/06/2017 07:13:59 05/14/20 16 04/28/2016 imagi ng/di agnos tic resul t No observ ation record ed. [email or web address] [facility] [address] [place], [address], 05/24/2016 10:44:17 05/14/20 16 04/13/2016 sleep study , ASV titra tion* No observ ation record ed. [email or web address] [place], [address], 06/03/2016 16:40:00 07/12/20 16 07/12/2016 US, doppl er echoc ardio gram No observ ation record ed. [facility] [address], [place], [address], 07/19/2016 11:26:25 07/15/20 16 05/19/2016 sleep study , polys omnog jacob with bren nuous posit satnam airwa y press ure* No observ ation record ed. [facility] [address] [place], [address], 07/19/2016 11:26:02 07/28/20 16 07/28/2016 US, duple x, carot id arter y No observ ation record ed. [email or web address] Not Available 08/20 09:44:06 10/28/19 17 10/18/2016 elect rafy deshpandegr am No observ ation record ed. [facility] Not Available 2016 10:22:59 12/14/19 17 12/13/2016 XR, chest No observ ation record ed. [facility] ([facility]) [address] [place], [address], 12/14/2016 11:23:51 01/19/20 17 01/18/2017 XR, chest No observ ation record ed. [facility] ([facility] [address] [place], [address], 02/10/2017 10:11:06 01/19/20 17 01/18/2017 CT, chest , w/o contr ast No observ ation record ed. [facility] ([facility] [address] [place], [address], 02/10/2017 10:10:53 02/05/20 17 02/03/2017 XR, chest No observ ation record ed. [facility] ([facility] [address] [place], [address], 02/10/2017 10:10:13 02/05/20 17 02/03/2017 CT, chest , w/o contr ast No observ ation record ed. [facility] ([facility] [address] [place], [address], 02/10/2017 10:08:49 02/11/20 17 02/06/2017 XR, chest , 2 view No observ ation record ed. [email or web address] Not Available 05/10 11:27:49 02/11/20 17 02/06/2017 XR, abdom en, 1 view No observ ation record ed. [email or web address] Not Available 05/10 11:27:50 03/21/20 17 03/16/2017 XR, chest No observ ation record ed. [email or web address] Not Available 05/10 11:27:50 03/21/20 17 03/16/2017 CT, abdom en + pelvi s, w/ contr ast No observ ation record ed. [email or web address] Not Available 05/10 11:27:50 05/22/20 25 05/20/2025 , [facility] ardio gram, trans esoph ageal No observ ation record ed. [email or web address] [facility] [address] [facility], [place], [address], 05/22/2025 11:07:09 Result Notes None recorded. Problems Name Problem SNOMED Code Status Onset Date Resolution Date Notes Provider Name and Address Organization Details Recorded Time Diabetes mellitus 07671321 Active Edgrace Klein PA-C Attn: Marnie g,[address] [facility], [place], [address], [facility] 6 14:46:47 Gastroesophage al reflux disease 524760993 Active Jey Klein PA-C Attn: Accountin g,[address] [facility], [place], [address], [place] [facility] 6 14:46:47 Sinusitis 72546906 Active Jey Klein PA-C Attn: Accountin g,[address] [facility], [place], [address], [place] [facility] 6 14:46:47 Bladder muscle dysfunction - overactive Active Jey Klein PA-C Attn: Accountin g,[address] [facility], [place], [address], [place] [facility] 6 14:46:47 Cardiomyopathy 01353001 Active Jey Klein PA-C Attn: Accountin g,[address] [facility], [place], [address], [place] [facility] 6 14:46:47 Vaginitis and vulvovaginitis Active Jey Klein PA-C Attn: Accountin g,[address] [facility], [place], [address], [place] [facility] 5 10:32:49 Dysuria 76069896 Active Jey Klein PA-C Attn: Accountin g,[address] [facility], [place], [address], [place] [facility] 5 10:32:49 Depressive disorder 52295721 Active Jey Klein PA-C Attn: Accountin g,[address] [facility], [place], [address], [place] [facility] 6 11:17:12 Insomnia 794967942 Active Jey Klein PA-C Attn: Accountin g,[address] [facility], [place], [address], [place] [facility] 6 14:28:00 Knee pain Active Jey lKein PA-C Attn: Accountin g,[address] [facility], [place], [address], [place] [facility] 6 14:46:47 Dysphagia 94620310 Active Jey Klein PA-C Attn: Accountin g,[address] [facility], [place], [address], [place] [facility] 6 14:28:00 Acute urinary tract infection 286777799 Active Jey Klein PA-C Attn: Accountin g,[address] [facility], [place], [address], [place] [facility] 6 16:56:51 Asthma 777797412 Active Jey Klein PA-C Attn: Accountin g,[address] [facility], [place], [address], [place] [facility] 6 14:46:47 Low back pain 434860817 Active Jey Klein PA-C Attn: Accountin g,[address] [facility], [place], [address], [place] [facility] 6 16:56:51 Osteoarthritis of knee 677651497 Active Jey Klein PA-C Attn: Accountin g,[address] [facility], [place], [address], [place] [facility] 6 14:28:00 Thumb joint painful on movement 480837676 Active Jey Klein PA-C Attn: Accountin g,[address] [facility], [place], [address], [place] [facility] 6 14:28:00 Sleep apnea 70093386 Active Jey Klein PA-C Attn: Accountin g,[address] [facility], [place], [address], [place] [facility] 6 19:05:51 Periodic limb movement disorder 433448116 Active Jey Klein PA-C Attn: Accountin g,[address] [place], [address], [place] [facility] 6 19:05:51 Tinea capitis 7248362 Active Jey Klein PA-C Attn: Accountin g,[address] [facility], [place], [address], [place] [facility] 6 16:56:51 Essential hypertension 92942678 Active 2016 Jey Klein PA-C Attn: Marnie mata,[address] [facility], [place], [address], [place] [facility] 7 14:45:32 Viral hepatitis C 96720219 Active 2016 Jey Klein PA-C Attn: Marnie mata,[address] [facility], [place], [address], [place] [facility] 7 14:32:24 Urinary tract infectious disease 66040018 Active 2016 Jey Klein PA-C Attn: Marnie mata,[address] [facility], [place], [address], [place] [facility] 7 14:35:04 Constipation 76863229 Active 2016 Jey Klein PA-C Attn: Marnie mata,[address] [facility], [place], [address], [place] [facility] 7 00:09:16 Vitamin D deficiency 46773655 Active 2016 Jey Klein PA-C Attn: Marnie mata,[address] [facility], [place], [address], [place] [facility] 7 10:06:40 Problem Notes None recorded. Procedures Surgical History Date Name Laterality Status Provider Name and Address Organization Details Recorded Time 07/12/20 13 Date of Last Pap Smear completed Veena Duran [place] 06/30/2015 10:21:35 10/10/19 12 Cholecystectomy completed Veena Duran [place] 06/30/2015 10:22:34 10/10/18 75 Appendectomy completed Veena Duran [place] 06/30/2015 10:22:14 Arthroscopic Surgery completed Sendy Ge [place] 01/15/2015 10:55:55 Imaging Results None recorded. Procedure Notes None recorded. Medical Equipment None Reported. Allergies Allergen ID Allergen Name Allergen Category Reaction Reaction Severity Criticality Documentation Date Start Date Code Code System Note Provider Name and Address Organization Details Recorded Time 02272 Substance with sulfonami de structure and antibacte rial mechanism of action (substanc e) medicatio n hives Not available Not available 01/15/2015 86351 8003 SNOMED SHAWN Nicolas, [facility] 5 10:55:55 65429 sulfameth oxazole / trimethop rim medicatio n hives Not available Not available 01/15/2015 41506 RxNorm SHAWN Nicolas, [facility] 5 10:55:55 Medications Name Sig Start Date [...] Available Vitals Date Recorded Body height Body weight Body mass index (BMI) Oxygen saturation Oxygen saturation in Arterial blood by Pulse oximetry Heart rate Body temperature Systolic And Diastolic Provider Name and Address Organization Details Last Updated DateTime 7 172.72 cm 10695.2 g 32 kg/m2 98 % 98 % 115 /min 98.4 [degF] 126/80 mm[Hg] Coleen Engel MA [facility] 7 16:07:25 Date Recorded Body height Body weight Body mass index (BMI) Oxygen saturation Oxygen saturation in Arterial blood by Pulse oximetry Heart rate Body temperature Systolic And Diastolic Provider Name and Address Organization Details Last Updated DateTime 7 172.72 cm 019652 g 39.9 kg/m2 99 % 99 % 112 /min 97.9 [degF] 108/70 mm[Hg] Coleen Engel MA [facility] 7 14:27:15 Date Recorded Body height Body mass index (BMI) Body weight Oxygen saturation Oxygen saturation in Arterial blood by Pulse oximetry Heart rate Body temperature Systolic And Diastolic Provider Name and Address Organization Details Last Updated DateTime 7 172.72 cm 44.3 kg/m2 900445. 18 g 99 % 99 % 89 /min 97.9 [degF] 120/70 mm[Hg] Coleen Engel MA [facility] 7 14:17:22 Date Recorded Heart rate Body weight Body height Body mass index (BMI) Body temperature Systolic And Diastolic Provider Name and Address Organization Details Last Updated DateTime 6 84 /min 896498. 941695 g 172.72 cm 36.9 kg/m2 98.4 [degF] 124/60 mm[Hg] Hyun Love LPN [facility] 6 16:24:26 Date Recorded Body height Body weight Body mass index (BMI) Oxygen saturation Oxygen saturation in Arterial blood by Pulse oximetry Heart rate Body temperature Systolic And Diastolic Provider Name and Address Organization Details Last Updated DateTime 6 172.72 cm 283276. 28 g 34.2 kg/m2 98 % 98 % 57 /min 97.9 [degF] 114/80 mm[Hg] Coleen Engel MA [facility] 6 16:39:10 Social History Question Answer Notes LastModified by Organizat ion Details LastModified Time Tobacco Smoking Status Never Smoker Sendy Ge [place] null, [place] 01/15/2015 10:55:56 Do You Have An Advance Directive? No Information not available 01/15/2015 What Is Your Level Of Caffeine Consumption? Heavy Information not available 01/15/2015 How Much Tobacco Do You Chew? None Information not available 01/15/2015 What Type Of Diet Are You Following? [...] LastModified by Organizat ion Details LastModified Time What is your level of alcohol consumption? Occasional Information not available 01/15/2015 Are you currently employed? No Information not available 06/30/2015 What is your exercise level? None Information not available 06/30/2015 Mental Status None recorded. Family History Nothing Reported. Medical History Condition Response Coronary Artery Disease N Blood Diseases N Kidney Cyst N Hyperthyroidism N Blood disorders N MRSA N Blood Transfusion N Emphysema N Depression N COPD N Blood Clots N Pneumonia N Peripheral Arterial Disease N Premature N Edema N TIA N Headaches/Migraines N Anxiety Disorder N Obesity N Polyps N Infertility N Acid Reflux (GERD) Y Hematuria N Stroke N Neck Injury N Polio N Hospital Admission other than N Neurologic Disorder N Other Sleep Disorders N Rheumatoid Arthritis N Fibromyalgia N Abdominal Aortic Aneurysm Repair N Kidney Disease N Heart Conditions N Heart Disease/Heart Problems N Hospitalizations N Brain Tumors N Acne N Skin Problems N Eating Disorder N Meningitis N Constipation N Tuberculosis N Cerebral Palsy N Myocardial Infarction N Asthma N Substance Abuse N Peripheral Vascular Disease N Vertigo N Sleep Disorder N Cirrhosis N Pulmonary Embolism N Chicken Pox N Hematologic Disease N Flomax Use Past or Present N Anxiety/Depression N Thyroid Disease N Colon Cancer N Lung Disease N Glaucoma N Developmental or Behavioral Disorders N Bipolar N Pacemaker N Diverticulitis/Diverticulosis N Orthopedic Problems N Anesthesia Complications N Orthotics N Head Injury/Concussion N Congenital Anomalies N Dowd Bite N Chronic Kidney Disease N Endometriosis N Liver Disease N Schizophrenia N Dialysis N Speech Delay N Chronic Obstructive Pulmonary Disease N Parkinson's Disease N Thyroid Problems N GI Problems N Developmental Delay N Anemia N Multiple Sclerosis N Immune System Disorder N Colon Polyps N Heart Attack (DC) N Diabetes Y Cardiomyopathy N Blood Transfusions N Heart Problems/Murmur N Eye Trauma N Congestive Heart Failure (CHF) N Valvular Heart Disease N Hyperlipidemia N Double Vision N Abuse/Domestic Violence N Hepatitis B N Lupus N Epilepsy/Seizures N Reflux/GERD N Aneurysm N Heart Disease N Bronchitis N Pre-Eclampsia N Hypertension Y Heart Failure N Other N Gout N [...] N Kidney Failure N Ocular trauma N Diverticulitis N Dementia N Sleep Apnea N Mental Problems N [...] virus, quadrivalent, PF 07/02/2014 completed Not Available [facility] Past Encounters Encounter ID Performer Location Encounter Start Date Encounter Closed Date Diagnosis/Indication Diagnosis SNOMED-CT Code Diagnosis ICD10 Code Diagnosis IMO Codes Diagnosis Note [id number] AARON Gonzalez (Adult Med) [address] [place] [phone] 01/15/2015 10:15:07 01/15/2015 13:28:38 Diabetes mellitus 21650212 Gastroesop hageal reflux disease 984736538 Sinusitis 83381457 Bladder mu scle dysfunction - overactive [id number] MD Kala Mondragon ([employer] REPA[employer]ER) [address] [place] [address] 39639-585 0 06/30/2015 09:48:50 06/30/2015 10:53:18 Gynecologic examination 08170203 Screening mammography 33889295 Screening for osteoporosis 535247555 Vaginitis and vulvovaginitis 841015565 [id number] MD Kala Knutson (Adult Med) [address] [place] [address] 21036-188 0 08/08/2015 09:49:09 08/08/2015 10:32:45 Bladder muscle dysfunction - overactive 995024337 N32.81 Cardiomyopathy 42220507 I42.9 cardiac cath 04/21: no CAD Diabetes mellitus 127109 09 E11.9 Gastroesop hageal reflux disease 156712838 K21.9 Dysuria 33620011 R30.9 Depressive disorder 3548 9007 F32.9 Insomnia 553193928 G47.0 0 Knee pain 38704386 M25.5 69 Dysphagia 05685266 R13.1 0 difficulty swallowing for 3 months Vaginitis and vulvovaginitis 014475196 N76.0 [id number] AARON Gonzalez (Adult Med) [address] [place] [address] 97579-055 0 10/07/2015 13:40:13 10/07/2015 14:28:56 Acute urinary tract infection 684841721 N39.0 Cardiomyopathy 51396942 I42.9 cardiac cath 04/21: no CAD Depressive disorder 3548 9007 F32.9 Diabetes mellitus 708668 09 E11.9 Asthma 600595643 J45.90 9 [id number] AARON Gonzaelz (Adult Med) [address] [place] [address] 26641-638 0 12/08/2015 14:21:28 12/10/2015 12:06:19 Acute urinary tract infection 263588428 N39.0 Diabetes mellitus 256028 09 E11.9 Low back pain 060372017 M54.5 [id number] AARON Gonzalez (Adult Med) [address] [place] [address] 96430-152 0 02/02/2016 13:24:50 02/02/2016 14:32:04 Osteoarthritis of knee 705608204 M17.9 Thumb join t painful on movement 981607461 M79.644 thumb weak Diabetes mellitus 007692 09 E11.9 Cardiomyopathy 96309656 I42.9 cardiac cath 04/21: no CAD Gastroesop hageal reflux disease 279525717 K21.9 Insomnia 565605493 G47.0 0 Low back pain 862529458 M54.5 Acute urin austin tract infection 404622864 N39.0 Bladder mu scle dysfunction - overactive 342577010 N32.81 Depressive disorder 3548 9007 F32.9 Dysphagia 38479095 R13.1 0 difficulty swallowing for 3 months [id number] AARON Gonzalez (Adult Med) [address] [place] [address] 54761-240 0 03/01/2016 14:08:56 03/01/2016 14:46:03 Sinusitis 53463651 J32.9 Asthma 276203389 J45.90 9 Bladder mu scle dysfunction - overactive 715113791 N32.81 Cardiomyopathy 13251435 I42.9 cardiac cath 04/21: no CAD Depressive disorder 3548 9007 F32.9 Diabetes mellitus 998645 09 E11.9 Gastroesop hageal reflux disease 056374996 K21.9 Low back pain 551188192 M54.5 Knee pain 80911988 M25.5 69 [id number] MD Kala Graf (Adult Med) [address] [place] [address] 71636-499 0 06/03/2016 16:06:49 06/03/2016 16:53:01 Tinea capitis 7963867 B35.0 Depressive disorder 3548 9007 F32.9 Acute urin austin tract infection 669527712 N39.0 Low back pain 841977078 M54.5 [id number] MD Kala Graf (Adult Med) [address] [place] [address] 31291-952 0 09/21/2016 16:19:17 09/21/2016 17:18:30 Acute urinary tract infection 658063614 N39.0 Osteoarthr itis of knee 936142681 M17.9 Low back pain 663811423 M54.5 Depressive disorder 3548 9007 F32.9 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 Diabetes mellitus 512494 09 E11.9 Sleep apnea 71931765 G47 .30 severe, non-compli ant with cpap Cardiomyopathy 49718430 I42.9 cardiac cath 04/21: no CAD [id number] MD Kala Graf (Adult Med) [address] [place] [address] 04236-554 0 11/25/2016 15:45:19 11/25/2016 18:04:35 Dysuria 10454153 R30.9 Low back pain 038947844 M54.5 Asthma 235251753 J45.90 9 [id number] MD Kala Graf (Adult Med) [address] [place] [address] 48376-134 0 02/01/2017 14:17:05 02/01/2017 17:14:28 Acute urinary tract infection 371838882 N39.0 Gastroesop hageal reflux disease 930326672 K21.9 Cardiomyopathy 54909844 I42.9 cardiac cath 04/21: no CAD Diabetes mellitus 317484 09 E11.9 Periodic l imb movement disorder 695249536 G47.61 severe Depressive disorder 3548 9007 F32.9 Low back pain 453535211 M54.5 Essential hypertension 14764406 I10 [id number] MD Kala Graf (Adult Med) [address] [place] [address] 13168-147 0 04/04/2017 13:58:46 04/05/2017 09:44:50 Viral hepatitis C 15121376 B19.20 Essential hypertension 41414526 I10 Insomnia 112898717 G47.0 0 Asthma 158836512 J45.90 9 Gastroesop hageal reflux disease 154961598 K21.9 Osteoarthr itis of knee 032394862 M17.9 Low back pain 314902150 M54.5 Knee pain 67211602 M25.5 69 Depressive disorder 3548 9007 F32.9 Periodic l imb movement disorder 854369468 G47.61 severe Cardiomyopathy 39498346 I42.9 cardiac cath 04/21: no CAD Sleep apnea 40800486 G47 .30 severe, non-compli ant with cpap Diabetes mellitus 821767 09 E11.9 Urinary tr act infectious disease 77031241 N39.0 Health Concerns Section Related Observation LastModified by Organization Detai ls LastModified Time None Recorded Concern Status LastModified by Organization Details LastModified Time None Recorded Advance Directives Directive N: Payers Insurance Date Sequence Insurance Name Policy Number Policy Ojeda Covered Member ID Ojeda Member ID Guarantor Name 05/10/2017 1 [facility] PRIOR TO 04/09/2021 (MEDICAID REPLACEMENT - HMO) Loretta Penn [id number] Loretta Penn Notes Date Note Type Note Provider Name and Address Organization Details Recorded Time 09/21/2016 text/html ROS as noted in the HPI lonely without her Jey Klein PA-C Attn: [address] [place], [address], [facility] 09/21/2016 17:44:29 11/25/2016 text/html ROS as noted in the HPI bladder infection Jey Klein PA-C Attn: [employer],[address] [place], [address], [facility] 11/25/2016 21:09:29 02/01/2017 text/html ROS as noted in the HPI frequency , flank pain Jey Klein PA-C Attn: [employer]ing,[address] [place], [address], [facility] 02/01/2017 16:33:13 04/04/2017 text/html ROS as noted in the HPI hospital upped her 70/30 insulin to 18 am ... 10 pm Jey Klein PA-C Attn: [employer]ing,[address] [place], [address], [place] [facility] 04/04/2017 17:04:09 OBGyn Episode No OBEpisode recorded.
--- OUTSIDE RECORDS SUMMARY | 2025-07-21 16:24 | XMS_ITS | Encounter Summary ---
Author Organization [facility] Address [address] [place] [address] Phone Care Team Providers Care Tumblers Supervisor Name Role Phone Oswaldo Serrano MD Primary Care Provider Angel Crowe DPM Unavailable [phone] Mora Fritz Unavailable Unavailable Ok Jorge MD Unavailable Orlin Urbina APRN, TRANSPORTATION DEPARTMENT HEAD Unavailable [phone] Reason for Visit * Reason Comments Medication Refill Encounter Details Date Type Department Care Team (Late st Contact Info) Description 12/02/2020 Refill [facility] - Family Medicine - [place] #2 [place] [address] Connor Yuan APRN, TRANSPORTATION DEPARTMENT HEAD #[address] [address] Medication Refill Social History Tobacco Use Types [...] COVID-19? No / Unsure 11/28/2020 2:56 PM NURSE SPECIALIST documented as of this encounter Miscellaneous Notes * Telephone Encounter - Connie Gamez RN - 12/02/2020 11:24 AM CST Refused as patient needs lab work done. Connie RN E SPECIALIST documented in this encounter Plan of Treatment Upcoming Encounters Date Type Department Care Team (Late st Contact Info) Description 07/22/2025 2:30 PM CDT Telemedicine [facility] - Endocrinology [facility] #2 [place] [address] Ok Jorge MD #[address] [address] 07/30/2025 2:45 PM CDT Office Visit [facility] UROLOGY #2 [place] [address] Orlin Urbina APRN, TRANSPORTATION DEPARTMENT HEAD #2 [place] [address] 11/18/2025 2:30 PM NURSE SPECIALIST Office Visit [facility] Medical [facility] - Family Medicine [facility] #[address] [place] [address] Oswaldo Serrano MD [address] [address] documented as of this encounter Visit Diagnoses Diagnosis Vitamin D deficiency Unspecified vitamin D deficiency documented in this encounter Additional Health Concerns Infection Onset Date Last Indicated Resolved Time COVID - 19 07/28/2021 07/29/2021 08/17/2021 12:1 6 AM NURSE SPECIALIST Assessment Noted Time PHQ-9 Depression Total Score: 2 07/18/20 4:26 PM CDT documented as of this encounter Care Teams Tumblers Supervisor Relationship Specialty Start Date End Date Oswaldo Serrano MD #[address] [address] PCP - General Family Medicine 05/19/17 Angel Crowe DPM #[address] [address] Consulting Physician Podiatry 06/16/17 Mora Fritz [place] Behavioral Health Navigator 06/15/18 Ok Jorge MD #[address] [address] Consulting Physician Endocrinology 05/12/22 Orlin Urbina APRN, TRANSPORTATION DEPARTMENT HEAD #2 [place] [address] Nurse Practitioner Advanced Practice Nurse 11/09/22 documented as of this encounter
--- OUTSIDE RECORDS SUMMARY | 2025-07-21 16:24 | XMS_ITS | Patient Health Record ---
Author Organization [facility] Address [address] [facility] [address] [place], [place] [address] Care Team Providers Care Manpower Development Specialist Name Role Phone JEREMÍAS ASHTON Primary Care Provider [phone] Allergies Allergen (clinical drug ingredient) Drug/Non Drug Allergy documented on EMR Reaction Allergy Type Onset Date Status Information temporarily unavailable Sulfa Antibiotics Unknown Drug Allergy Active Results Component Value Reference Range Notes COMPREHENSIVE METABOLIC PANE L (74138) Reviewed date:08/10/2024 03:56:35 PM Interpretation: Performing Lab:[place], [facility]-[id number] Niyah [facility], [id number] Krista Montiel MD Notes/Report: FASTING: NO FASTING:NO [...] Reviewed date:08/10/2024 07:29:02 AM Interpretation: Performing Lab:[facility]-[id number] Niyah Sheets, [id number] Krista Montiel MD Notes/Report: FASTING:NO FASTING: NO [...] MPV 10.3 7.5-12.5 fL ABSOLUTE NEUTROPHILS 4795 6395-6963 cells/uL ABSOLUTE LYMPHOCYTES 4817 128-6403 cells/uL ABSOLUTE MONOCYTES 637 200-950 cells/uL ABSOLUTE EOSINOPHILS 322 15-500 cells/uL ABSOLUTE BASOPHILS 98 0-200 cells/uL NEUTROPHILS 68.5 LYMPHOCYTES 16.4 MONOCYTES 9.1 EOSINOPHILS 4.6 BASOPHILS 1.4 SED RATE BY MODIFIED NARDA YRUI (809) Reviewed date:08/10/2024 09:35:21 AM Interpretation: Performing Lab:[facility]-[id number] Sheets, [id number] Krista Montiel MD Notes/Report: FASTING:NO FASTING: NO SED RATE BY MODIFIED NARDAREN 53 < OR = 30 mm/h C-REACTIVE PROTEIN (4420) Reviewed date:08/10/2024 09:35:16 AM Interpretation: Performing Lab:[facility]-[id number] [id number] Krista Montiel MD Notes/Report: FASTING:NO FASTING: [...] phone, visiting friends or family, going to orthodoxy or club meetings) I choose not to answer this question How stressed are you? Stress is when someone feels tense, nervous, anxious, or can't sleep at night because their mind is troubled I choose not to answer this question In the past year have you sp ent more than 2 nights in a row in a senior living, halfway, [place] [facility] [place] center, or juvenile correctional facility? I choose [...] Notes Problem Inappropriate diet and eating habits (0016893919122) Inappropriate diet and eating habits (Z72.4) 01/31/20 Active confirmed Problem Obese class III (finding) (555112662) Obesity, class 3 (E66.813) 01/31/20 Active confirmed Problem Chronic systolic heart failure (532508059) Chronic systolic congestive heart failure (I50.22) Active [...] 01/30/2025 Encounters Encounter Location Date Provider Diagnosis [facility] [address] [facility] [place], [place] [id number] 08/09/2024 JEREMÍAS ASHTON Acute bacterial endocarditis I33.0 ; Bacteremia R78.81 ; Methicillin susceptible Staphylococcus aureus infection as the cause of diseases classified elsewhere B95.61 and 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, initial encounter T82.7XXA [address] [id number] 09/17/2024 [facility] Acute bacterial endocarditis I33.0 and 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, initial encounter T82.7XXA [address] [id number] 01/30/2025 [facility] Acute bacterial endocarditis I33.0 ; 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 She will follow up with the green marketing specialist. 01/30/2025 Acute bacterial endocarditis (ICD-10 - I33.0) A long discussion is had with the patient and her sister about the importance of restarting the antibiotics at the correct dosing and she is given refills. This will be lifelong therapy as she is no longer a candidate for PPM change or valvular surgery. She will follow up with the green marketing specialist as she has severe CHF, valvular dysfunction, and is volume overloaded. Given her inability to comply with medications, a CPAP, weight loss, low sodium diet, and is no longer a surgical candidate, she is encouraged to talk with the green marketing specialist about the possiblity for hospice care. In [...] Lina, 08/01/2025 01:00:00 PM, [address], [facility] , [place], [place], [id number], Insurance Providers Payer Name Payer Address Payer Phone Subscriber Number Group Number Insured Name Patient Relationship to Insured Coverage Start Date Coverage End Date [employer] [address] [place] [id number] Loretta Moses am Self - patient is the insured [address] [place], [place] [address]t of Public Aid [address] [address] [place], [place] [id number] Loretta Moses am Self - patient is [...]
--- OUTSIDE RECORDS SUMMARY | 2025-07-21 16:24 | XMS_ITS | Encounter Summary ---
Author Organization [facility] Address [address] [place] [address] Phone Care Team Providers Care Small Business Consultant Name Role Phone Oswaldo Serrano MD Primary Care Provider [phone] Angel Crowe DPM Unavailable [phone] Mora Fritz Unavailable Unavailable Ok Jorge MD Unavailable Orlin Urbina APRN, FLOTATION TENDER HELPER Unavailable [phone] Reason for Visit * Reason Comments Medication Refill Encounter Details Date Type Department Care Team (Late st Contact Info) Description 11/26/2020 Refill [facility] - Family Medicine - [place] #2 [place] [address] Connor Yuan APRN, FLOTATION TENDER HELPER #[address] [address] Medication Refill Social History Tobacco Use Types [...] COVID-19? No / Unsure 11/28/2020 2:56 PM MECHANICAL ENGINEERING ADVISOR documented as of this encounter Miscellaneous Notes * Telephone Encounter - Connie Gamez RN - 11/26/2020 3:08 PM CST Sent to PCP ANICAL ENGINEERING ADVISOR * Telephone Encounter - Connie Gamez RN - 11/26/2020 3:07 PM CST Per nursing clinical judgement, provider to review and approve the medication(s) order(s) if appropriate. Last OV 11/07/20, F/U 12/08/20, Last Rx 09/11/20 4 capsules with 2 refills take 1 cap once a week Connie DASILVA Requested Prescriptions Pending Prescriptions Disp Refills ergocalciferol (VITAMIN D) 03651 UNIT Capsule [Pharmacy Med Name: VITAMIN D [...] Medicine - Dhiraj Yuan, Connor Santos APN, FLOTATION TENDER HELPER 1 month ago Flu-like symptoms [facility] - Family Medicine - Oswaldo Moreno MD 2 months ago Chronic joint pain [facility] - Oswaldo Moreno MD 4 months ago Diabetic polyneuropathy associated with type 2 diabetes mellitus (HCC) [facility] - Connor Hutchinson APN, CNP 4 months ago Acute diarrhea [facility] Connor Hutchinson APN, FLOTATION TENDER HELPER Upcoming Appointments Future Appointments In 2 days Ok Jorge MD [facility] Endocrinology [facility] In 1 week Oswaldo Serrano MD [facility] ADMISSIONS 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 - Recent and Past Visits Recent Visits Date Type Provider Dept 11/07/20 Telemedicine Connor Yuan APN, YUDI [facility] 10/09/20 Office Visit Oswaldo Serrano MD [facility] 09/16/20 Telemedicine Oswaldo Serrano MD [facility] 07/18/20 Office Visit Connor Yuan APN, YUDI [facility] 07/11/20 Telemedicine Connor Yuan APN, YUDI [facility] 06/09/20 Office Visit Oswaldo Serrano MD [facility] 05/29/20 Telemedicine Oswaldo Serrano MD [facility] 04/07/20 Office Visit Connor Yuan APN, YUDI [facility] 03/18/20 Telemedicine Oswaldo Serrano MD [facility] 12/14/19 Office Visit Merry Elliott PAC [facility] Showing recent visits within past 460 days with a meds authorizing provider and meeting all other requirements Future Appointments Date Type Provider Dept 12/08/20 Appointment Oswaldo Serrano MD [facility] Showing future appointments within next 90 days with a meds authorizing provider and meeting all other requirements ANICAL ENGINEERING ADVISOR documented in this encounter Plan of Treatment Upcoming Encounters Date Type Department Care Team (Late st Contact Info) Description 07/22/2025 2:30 PM CDT Telemedicine [facility] Endocrinology [facility]3] #2 [place] [address] Ok Jorge MD #[address] [address] 07/30/2025 2:45 PM CDT Office Visit [facility] UROLOGY #2 [place] [address] Orlin Urbina, COAL CAGER, FLOTATION TENDER HELPER #2 [place] [address] 11/18/2025 2:30 PM MECHANICAL ENGINEERING ADVISOR Office Visit [facility] Family [facility] #2 [place] [address] Oswaldo Serrano MD #[address] [address] documented as of this encounter Visit Diagnoses Diagnosis Vitamin D deficiency Unspecified vitamin D deficiency documented in this encounter Additional Health Concerns Infection Onset Date Last Indicated Resolved Time COVID - 19 07/28/2021 07/29/2021 08/17/2021 12:1 6 AM MECHANICAL ENGINEERING ADVISOR Assessment Noted Time PHQ-9 Depression Total Score: 2 07/18/20 20 4:26 PM CDT documented as of this encounter Care Teams Small Business Consultant Relationship Specialty Start Date End Date Oswaldo Serrano MD #[address] [address] PCP - General Family Medicine 05/19/17 Angel Crowe DPM #[address] [address] Consulting Physician Podiatry 06/16/17 Mora Fritz [place] Behavioral Health Navigator 06/15/18 Ok Jorge MD [facility] [address] [address] Consulting Physician Endocrinology 05/12/22 Orlin Urbina APRN, FLOTATION TENDER HELPER #[address] [place] [address] Nurse Practitioner Advanced Practice Nurse 11/09/22 documented as of this encounter
--- OUTSIDE RECORDS SUMMARY | 2025-07-21 16:25 | XMS_ITS | Encounter Summary ---
Author Organization [facility] Address [address] [place] [address] Phone Care Team Providers Care Instruction Assistant Principal Name Role Phone Oswaldo Serrano MD Primary Care Provider [phone] Angel Crowe DPM Unavailable [phone] Mora Fritz Unavailable Unavailable Ok Jorge MD Unavailable Orlin Urbina APRN, MACHINE REPAIRER MAINTENANCE Unavailable [phone] Reason for Visit * Reason Comments Medication Refill Encounter Details Date Type Department Care Team (Late st Contact Info) Description 10/10/2023 Refill [facility] - Endocrinology - [place] #2 [place] [address] Ok Jorge MD #[address] [address] Medication Refill Social History Tobacco [...] Ynes Zuniga, RN - 10/11/2023 9:03 AM INVESTIGATOR INTERNAL AFFAIRS Requested Prescriptions Pending Prescriptions Disp Refills ??? Insulin Pen Needle (BD Pen Needle Jackelin 2nd Gen) 32G X 4 MM Misc [Pharmacy Med Name: B-D JACKELIN 2ND GEN PEN NDL [id number]] 400 Each Sig: USE TO INJECT FOUR TIMES DAILY Next appt: 12/13/2023 STIGATOR INTERNAL AFFAIRS documented in this encounter Plan of Treatment Upcoming Encounters Date Type Department Care Team (Late st Contact Info) Description 07/22/2025 2:30 PM CDT Telemedicine [facility] Medical [facility] Endocrinology [facility] #2 [place] [address] Ok Jorge MD #[address] [address] 07/30/2025 2:45 PM CDT Office Visit [facility] UROLOGY #2 [place] [address] Orlin Urbina APRN, MACHINE REPAIRER MAINTENANCE #2 [place] [address] 11/18/2025 2:30 PM INVESTIGATOR INTERNAL AFFAIRS Office Visit [facility] - Family Medicine [facility] #2 [place] [address] Oswaldo Serrano MD [address] [address] documented as of this encounter Visit Diagnoses Not on filedocumented in this encounter Additional Health Concerns Assessment Noted Time PHQ-9 Depression Total Score: 0 08/09/20 23 2:56 PM CDT documented as of this encounter Care Teams Instruction Assistant Principal Relationship Specialty Start Date End Date Oswaldo Serrano MD #[address] [address] PCP - General Family Medicine 05/19/17 Angel Crowe DPM #[address] [address] Consulting Physician Podiatry 06/16/17 Mora Fritz [place] Behavioral Health Navigator 06/15/18 Ok Jorge MD #[address] [address] Consulting Physician Endocrinology 05/12/22 Orlin Urbina APRN, MACHINE REPAIRER MAINTENANCE #2 [place] [address] Nurse Practitioner Advanced Practice Nurse 11/09/22 documented as of this encounter
--- OUTSIDE RECORDS SUMMARY | 2025-07-21 16:26 | XMS_ITS | Encounter Summary ---
Author Organization [facility] Address [address] [place] [address] Phone Care Team Providers Care Cosmetician Apprentice Name Role Phone Oswaldo Serrano MD Primary Care Provider [phone] Angel Crowe DPM Unavailable [phone] Mora Fritz Unavailable Unavailable Ok Jorge MD Unavailable Orlin Urbina APRN, FUNDRAISING DIRECTOR Unavailable [phone] Reason for Visit * Reason Comments Medication Refill Encounter Details Date Type Department Care Team (Late st Contact Info) Description 11/27/2022 Refill [facility] [place] [facility] UROLOGY #2 [place] [address] Orlin Urbina APRN, FUNDRAISING DIRECTOR #2 [place] [address] Medication Refill Social History Tobacco Use Types [...] Coronavirus/COVID-19? No / Unsure 11/25/2022 12:13 PM PAPER CUP HANDLE MACHINE OPERATOR documented as of this encounter Plan of Treatment Upcoming Encounters Date Type Department Care Team (Late st Contact Info) Description 07/22/2025 2:30 PM CDT Telemedicine [facility] - Endocrinology [facility] #2 [place] [address] Ok Jorge MD #[address] [address] 07/30/2025 2:45 PM CDT Office Visit [facility] PHYS[facility]IAN GROUP UROLOGY #2 [place] [address] Orlin Urbina APRN, FUNDRAISING DIRECTOR #2 [place] [address] 11/18/2025 2:30 PM PAPER CUP HANDLE MACHINE OPERATOR Office Visit [facility] Medical [facility] - Family Medicine [facility] #2 [place] [address] Oswaldo Serrano MD #[address] [address] documented as of this encounter Visit Diagnoses Not on filedocumented in this encounter Additional Health Concerns Assessment Noted Time PHQ-9 Depression Total Score: 0 10/14/19 11:00 AM PAPER CUP HANDLE MACHINE OPERATOR documented as of this encounter Care Teams Cosmetician Apprentice Relationship Specialty Start Date End Date Oswaldo Serrano MD #2 [facility] [address] [place] [address] PCP - General Family Medicine 05/19/17 Angel Crowe DPM #2 [facility] [address] [place] [address] Consulting Physician Podiatry 06/16/17 Mora Fritz [place] Behavioral Health Navigator 06/15/18 Ok Jorge MD #2 [facility] [address] [place] [address] Consulting Physician Endocrinology 05/12/22 Orlin Urbina, COMIC BOOK WRITER, FUNDRAISING DIRECTOR #2 [place] [address] Nurse Practitioner Advanced Practice Nurse 11/09/22 documented as of this encounter
--- OUTSIDE RECORDS SUMMARY | 2025-07-21 16:26 | XMS_ITS | Encounter Summary ---
Author Organization [facility] Address [address] [place] [address] Phone Care Team Providers Care Microfiche Duplicator Name Role Phone Oswaldo Serrano MD Primary Care Provider [phone] Angel Crowe DPCiara Unavailable [phone] Mora Fritz Unavailable Unavailable Ok Jorge MD Unavailable Orlin Urbina APRN, COLLECTIONS CLERK Unavailable [phone] Reason for Visit * Reason Comments Medication Refill Encounter Details Date Type Department Care Team (Late st Contact Info) Description 06/09/2023 Refill [facility] - Family Medicine - [place] #[address] [place] [address] Oswaldo Serrano MD #[address] [address] Medication Refill Social History Tobacco Use Types [...] Care Team (Ronan reed Contact Info) Description 07/22/2025 2:30 PM CDT Telemedicine [facility] Endocrinology [facility] #2 [place] [address] Ok Jorge MD #[address] [address] 07/30/2025 2:45 PM CDT Office [facility] PHYSICIAN [facility] #2 [place] [address] Orlin Urbina APRN, COLLECTIONS CLERK #2 [place] [address] 11/18/2025 2:30 PM IRONWORKER MACHINE OPERATOR Office Visit [facility] Family Medicine [facility] #2 [place] [address] Oswaldo Serrano MD #[address] [address] documented as of this encounter Visit Diagnoses Not on filedocumented in this encounter Additional Health Concerns Assessment Noted Time PHQ-9 Depression Total Score: 0 10/14/19 23 11:00 AM IRONWORKER MACHINE OPERATOR documented as of this encounter Care Teams Microfiche Duplicator Relationship Specialty Start Date End Date Oswaldo Serrano MD #[address] [address] PCP - General Family Medicine 05/19/17 Angel Crowe DPM #[address] [address] Consulting Physician Podiatry 06/16/17 Mora Fritz [place] Behavioral Health Navigator 06/15/18 Ok Jorge MD #2 [facility] [address] [phone] Consulting Physician Endocrinology 05/12/22 Orlin Urbina APRN, COLLECTIONS CLERK #2 [place] [address] Nurse Practitioner Advanced Practice Nurse 11/09/22 documented as of this encounter
--- OUTSIDE RECORDS SUMMARY | 2025-07-21 16:26 | XMS_ITS | Encounter Summary ---
Author Organization [facility] Address [address] [place] [address] Phone Care Team Providers Care Rug Dry Room Attendant Name Role Phone Oswaldo Serrano MD Primary Care Provider [phone] Angel Crowe DPM Unavailable [phone] Mora Fritz Unavailable Unavailable Ok Jorge MD Unavailable Orlin Urbina APRN, HEAVY EQUIPMENT ENGINE MECHANIC Unavailable [phone] Reason for Visit * Reason Comments Medication Refill Encounter Details Date Type Department Care Team (Late st Contact Info) Description 12/23/2022 Refill [facility] [place] [facility] #2 [place] [address] Orlin Urbina APRN, HEAVY EQUIPMENT ENGINE MECHANIC #2 [place] [address] Medication Refill Social History Tobacco Use Types [...] No / Unsure 11/25/2022 12:13 PM SUPPLY TECHNICIAN documented as of this encounter Plan of Treatment Upcoming Encounters Date Type Department Care Team (Late st Contact Info) Description 07/22/2025 2:30 PM CDT Telemedicine [facility] - Endocrinology [facility] #2 [place] [address] Ok Jorge MD #[address] [phone] 07/30/2025 2:45 PM CDT Office Visit [facility] #2 [place] [address] Orlin Urbina APRN, HEAVY EQUIPMENT ENGINE MECHANIC #2 [place] [address] 11/18/2025 2:30 PM SUPPLY TECHNICIAN Office Visit [facility] Medical [facility] - Family Medicine [facility] #2 [place] [address] Oswaldo Serrano MD #[address] [address] documented as of this encounter Visit Diagnoses Not on filedocumented in this encounter Additional Health Concerns Assessment Noted Time PHQ-9 Depression Total Score: 0 10/14/19 11:00 AM SUPPLY TECHNICIAN documented as of this encounter Care Teams Rug Dry Room Attendant Relationship Specialty Start Date End Date Oswaldo Serrano MD #2 [facility] [address] [place] [address] PCP - General Family Medicine 05/19/17 Angel Crowe DPM #2 [facility] [address] [place] [address] Consulting Physician Podiatry 06/16/17 Mora Fritz [place] Behavioral Health Navigator 06/15/18 Ok Jorge MD #2 [facility] [address] [place] [address] Consulting Physician Endocrinology 05/12/22 Orlin Urbina, ARCHITECTURAL MODEL MAKER, HEAVY EQUIPMENT ENGINE MECHANIC #2 [place] [address] Nurse Practitioner Advanced Practice Nurse 11/09/22 documented as of this encounter
--- OUTSIDE RECORDS SUMMARY | 2025-07-21 16:26 | XMS_ITS | Encounter Summary ---
Author Organization [facility] Address [address] [place] [address] Phone Care Team Providers Care Call Or Contact Centre Manager Name Role Phone Oswaldo Serrano MD Primary Care Provider [phone] Angel Crowe DPCiara Unavailable [phone] Mora Fritz Unavailable Unavailable Ok Jorge MD Unavailable Orlin Urbina APRN, DIVINITY TEACHER Unavailable [phone] Reason for Visit * Reason Comments Medication Refill Encounter Details Date Type Department Care Team (Late st Contact Info) Description 02/02/2024 Refill [facility] - [facility] Medicine - [place] [address] [place] [address] Oswaldo Serrano MD #[address] [address] Medication Refill Social History Tobacco Use Types Packs/Day Years Used Date Smoking Tobacco: Never Smokeless Tobacco: Never Alcohol Use Standard Drinks/Week Comments No 0 (1 standard drink = 0.6 oz pur e alcohol) [facility] Utilities Answer Date Recorded In [...] attend chur ch or baptism services? Never 11/09/2023 Do you belong to any clubs o r organizations such as zoroastrianism groups, unions, fraternal or athletic groups, or [...] Score - Questions 1-9 0 10/3 10/2022 [facility] of Occupat ional Health - Occupational Stress [...] [place] 05/03/23 Office Visit Oswaldo Serrano MD [facility] Showing recent visits within past 365 days and meeting all other requirements Future Appointments Date Type Provider Dept 02/14/24 Appointment Oswaldo Serrano MD [facility] Showing future appointments within next 90 days and meeting all other requirements Passed - Up to date with colon cancer screening Health Maintenance documented in this encounter Plan of Treatment Upcoming Encounters Date Type Department Care Team (Late st Contact Info) Description 07/22/2025 2:30 PM CDT Telemedicine [facility] - Endocrinology - [place] #2 [place] [address] Ok Jorge MD #[address] [address] 07/30/2025 2:45 PM CDT Office Visit [facility] #2 [place] [address] Orlin Urbina APRN, DIVINITY TEACHER #2 [place] [address] 11/18/2025 2:30 PM ACADEMIC AFFAIRS DIRECTOR Office Visit [facility] - Family Medicine [facility] #2 [place] [address] Oswaldo Serrano MD #[address] [address] documented as of this encounter Visit Diagnoses Not on filedocumented in this encounter Additional Health Concerns Assessment Noted Time PHQ-9 Depression Total Score: 0 08/09/20 2:56 PM CDT documented as of this encounter Care Teams Call Or Contact Centre Manager Relationship Specialty Start Date End Date Oswaldo Serrano MD #[address] [facility] [address] [place] [address] PCP - General Family Medicine 05/19/17 Angel Crowe DPM #[address] [facility] [address] [place] [address] Consulting Physician Podiatry 06/16/17 Mora Fritz [place] Behavioral Health Navigator 06/15/18 Ok Jorge MD #[address] [address] Consulting Physician Endocrinology 05/12/22 Orlin Urbina, CARRIER DRIVER, DIVINITY TEACHER #2 [place] [address] Nurse Practitioner Advanced Practice Nurse 11/09/22 documented as of this encounter
--- OUTSIDE RECORDS SUMMARY | 2025-07-21 16:26 | XMS_ITS | Encounter Summary ---
Author Organization [facility] Address [address] [place] [address] Phone Care Team Providers Care Hearing And Speech Assistant Name Role Phone Oswaldo Serrano MD Primary Care Provider [phone] Angel Crowe DPCiara Unavailable [phone] Mora Fritz Unavailable Unavailable Ok Jorge MD Unavailable Orlin Urbina APRN, MATERIAL FLOW ENGINEER Unavailable [phone] Reason for Visit * Reason Comments Medication Refill Encounter Details Date Type Department Care Team (Late st Contact Info) Description 12/10/2020 Refill [facility] - [facility] Medicine - [place] #[address] [place] [address] Oswaldo Serrano MD #[address] [address] Medication Refill Social History Tobacco Use Types [...] COVID-19? No / Unsure 12/13/2020 11:23 AM SHEEP OR CALF GRADER documented as of this encounter Miscellaneous Notes [...] Visits 2 days ago Subacute maxillary sinus[facility] - Family [facility] - Oswaldo Moreno MD 1 month ago Chest [facility] - Connor Hutchinson APN, YUDI 2 months ago Flu-like symptoms [facility] - Oswaldo Moreno MD 2 months ago Chronic joint pain [facility] - Oswaldo Moreno MD 4 months ago Diabetic polyneuropathy associated with type 2 diabetes mellitus (HCC) [facility] - Connor Hutchinson APN, YUDI Upcoming Appointments Future Appointments In 5 days Ok Jorge MD [facility] Medical [facility] - Endocrinology - [place], [facility] PATIENT ACCESS REGISTRAR - Recent and Past Visits Recent Visits Date Type Provider Dept 12/08/20 Telemedicine Oswaldo Serrano MD [facility] 11/07/20 Telemedicine Connor Yuan APN, YUDI [facility] 10/09/20 Office Visit Oswaldo Serrano, MD [facility] 09/16/20 Telemedicine Oswaldo Serrano, MD [facility] 07/18/20 Office Visit Connor Yuan APN, YUDI [facility] 07/11/20 Telemedicine Connor Yuan APN, YUDI [facility] 06/09/20 Office Visit Oswaldo Serrano, MD [facility] 05/29/20 Telemedicine Oswaldo Serrano, MD [facility] 04/07/20 Office Visit Connor Yuan APN, YUDI [facility] [place] 03/18/20 Telemedicine Oswaldo Serrano, [facility] Showing recent visits within past 460 days with a meds authorizing provider and meeting all other requirements Future Appointments No visits were found meeting these conditions. Showing future appointments within next 90 days with a meds authorizing provider and meeting all other requirements P OR CALF GRADER documented in this encounter Plan of Treatment Upcoming Encounters Date Type Department Care Team (Late st Contact Info) Description 07/22/2025 2:30 PM CDT Telemedicine [facility] - Endocrinology - [place] #2 [place] [address] Ok Jorge MD #[address] [address] 07/30/2025 2:45 PM CDT Office Visit [facility] PHYSICIAN [facility] #2 [place] [address] Orlin Urbina APRN, MATERIAL FLOW ENGINEER #[address] [place] [address] 11/18/2025 2:30 PM SHEEP OR CALF GRADER Office Visit [facility] Medical Group - [facility] [place] #2 [place] [address] Oswaldo Serrano MD #2 [facility] [address] [place] [address] documented as of this encounter Visit Diagnoses Not on filedocumented in this encounter Additional Health Concerns Infection Onset Date Last Indicated Resolved Time COVID - 19 07/28/2021 07/29/2021 08/17/2021 12:1 6 AM SHEEP OR CALF GRADER Assessment Noted Time PHQ-9 Depression Total Score: 2 07/18/20 4:26 PM CDT documented as of this encounter Care Teams Hearing And Speech Assistant Relationship Specialty Start Date End Date Oswaldo Serrano MD #[address] [address] PCP - General Family Medicine 05/19/17 Angel Crowe DPM #2 [facility] [address] [place] [address] Consulting Physician Podiatry 06/16/17 Mora Fritz [place] Behavioral Health Navigator 06/15/18 Ok Jorge MD #[address] [address] Consulting Physician Endocrinology 05/12/22 Orlin Urbina APRN, MATERIAL FLOW ENGINEER #2 [place] [address] Nurse Practitioner Advanced Practice Nurse 11/09/22 documented as of this encounter
--- OUTSIDE RECORDS SUMMARY | 2025-07-21 16:26 | XMS_ITS | Encounter Summary ---
Author Organization [facility] Address [address] [place] [address] Phone Care Team Providers Care Magnetic Doctor Name Role Phone Oswaldo Serrano MD Primary Care Provider [phone] Angel Crowe DPM Unavailable [phone] Mora Fritz Unavailable Unavailable Ok Jorge MD Unavailable Orlin Urbina APRN, OCCUPATIONAL THERAPY AIDES TEACHER Unavailable [phone] Reason for Visit * Reason Comments Medication Refill Encounter Details Date Type Department Care Team (Late st Contact Info) Description 11/28/2020 Refill [facility] - Family Medicine - [place] #2 [place] [address] Connor Yuan APRN, OCCUPATIONAL THERAPY AIDES TEACHER #[address] [address] Medication Refill Social History Tobacco Use Types [...] COVID-19? No / Unsure 11/28/2020 2:56 PM SPRINKLER FITTER HELPER documented as of this encounter Plan of Treatment Upcoming Encounters Date Type Department Care Team (Late st Contact Info) Description 07/22/2025 2:30 PM CDT Telemedicine [facility] - Endocrinology [facility] #2 [place] [address] Ok Jorge MD #[address] [address] 07/30/2025 2:45 PM CDT Office Visit [facility] #2 [place] [address] Orlin Urbina APRN, OCCUPATIONAL THERAPY AIDES TEACHER #2 [place] [address] 11/18/2025 2:30 PM SPRINKLER FITTER HELPER Office Visit [facility] - Family Medicine [facility] #2 [place] [address] Oswaldo Serrano MD #[address] [address] documented as of this encounter Visit Diagnoses Diagnosis Vitamin D deficiency Unspecified vitamin D deficiency documented in this encounter Additional Health Concerns Infection Onset Date Last Indicated Resolved Time COVID - 19 07/28/2021 07/29/2021 08/17/2021 12:1 6 AM SPRINKLER FITTER HELPER Assessment Noted Time PHQ-9 Depression Total Score: 2 07/18/20 4:26 PM CDT documented as of this encounter Care Teams Magnetic Doctor Relationship Specialty Start Date End Date Oswaldo Serrano MD #2 [facility] [address] [place] [address] PCP - General Family Medicine 05/19/17 Angel Crowe DPM #2 [facility] [address] [place] [address] Consulting Physician Podiatry 06/16/[address] Behavioral Health Navigator 06/15/18 Ok Jorge MD #2 [facility] [address] [place] [address] Consulting Physician Endocrinology 05/12/22 Orlin Urbina APRN, OCCUPATIONAL THERAPY AIDES TEACHER #2 [place] [address] Nurse Practitioner Advanced Practice Nurse 11/09/22 documented as of this encounter
--- OUTSIDE RECORDS SUMMARY | 2025-07-21 16:26 | XMS_ITS | Encounter Summary ---
Author Organization [facility] Address [address] [place] [address] Phone Care Team Providers Care Director Of Critical Care Name Role Phone Oswaldo Serrano MD Primary Care Provider [phone] Angel Crowe DPCiara Unavailable [phone] Mora Fritz Unavailable Unavailable Ok Jorge MD Unavailable Orlin Urbina APRN, SAMPLES AND REPAIRS PREPARER Unavailable [phone] Reason for Visit * Reason Comments Medication Refill Encounter Details Date Type Department Care Team (Late st Contact Info) Description 12/11/2023 Refill [facility] - Family Medicine - [place] #[address] [place] [address] Oswaldo Serrano MD #[address] [address] Medication Refill Social History Tobacco Use Types Packs/Day Years Used Date Smoking Tobacco: Never Smokeless Tobacco: Never Alcohol Use Standard Drinks/Week Comments No 0 (1 standard drink = 0.6 oz pur e alcohol) [facility] Utilities Answer Date Recorded In the [...] Score - Questions 1-9 0 10/3 10/2022 [facility] [place] of Occupat ional Health - Occupational Stress [...] [place] 08/09/23 Office Visit Oswaldo Serrano MD [facility] Showing recent visits within past 182 days and meeting all other requirements Future Appointments Date Type Provider Dept 02/14/24 Appointment Oswaldo Serrano MD [facility] Showing future appointments within next 90 days and meeting all other requirements Passed - Patient has established therapy with SSRI for at least 6 months ATRIC ASSISTANT documented in this encounter Plan of Treatment Upcoming Encounters Date Type Department Care Team (Late st Contact Info) Description 07/22/2025 2:30 PM CDT Telemedicine [facility] - Endocrinology - [place] #2 [place] [address] Ok Jorge MD #[address] [address] 07/30/2025 2:45 PM CDT Office Visit [facility] #2 [facility] [place] [place] [address] Orlin Urbina APRN, SAMPLES AND REPAIRS PREPARER #2 [place] [address] 11/18/2025 2:30 PM PEDIATRIC ASSISTANT Office Visit [facility] Medical [facility] - Family Medicine [facility] #2 [place] [address] Oswaldo Serrano MD #[address] [address] documented as of this encounter Visit Diagnoses Not on filedocumented in this encounter Additional Health Concerns Assessment Noted Time PHQ-9 Depression Total Score: 0 08/09/20 2:56 PM CDT documented as of this encounter Care Teams Director Of Critical Care Relationship Specialty Start Date End Date Oswaldo Serrano MD #2 [facility] [address] [place] [address] PCP - General Family Medicine 05/19/17 Angel Crowe DPM #2 [facility] [address] [place] [address] Consulting Physician Podiatry 06/16/17 Mora Fritz [place] Behavioral Health Navigator 06/15/18 Ok Jorge MD #2 [facility] [address] [place] [address] Consulting Physician Endocrinology 05/12/22 Orlin Urbina, KEG INSPECTOR, SAMPLES AND REPAIRS PREPARER #2 [place] [address] Nurse Practitioner Advanced Practice Nurse 11/09/22 documented as of this encounter
--- OUTSIDE RECORDS SUMMARY | 2025-07-21 16:27 | XMS_ITS | Encounter Summary ---
Author Organization [facility] Address [address] [address] Phone Care Team Providers Care Medication Administration Professional Name Role Phone Oswaldo Serrano MD Primary Care Provider Angel Crowe DPCiara Unavailable [phone] Mora Fritz Unavailable Unavailable Ok Jorge MD Unavailable Orlin Urbina APRN, AIRCRAFT SERVICER Unavailable [phone] Reason for Visit * Reason Comments Medication Refill Encounter Details Date Type Department Care Team (Late st Contact Info) Description 01/21/2021 Refill [facility] - [facility] Medicine - [place] [address] [place] [address] Oswaldo Serrano MD #[address] [address] Medication Refill Social History Tobacco Use Types [...] 1 week ago UTI symptoms [facility] Family Medicine - Connor Hutchinson APN, AIRCRAFT SERVICER 1 month ago Essential hypertension [facility] Family [facility] - Oswaldo Moreno MD 1 month ago Intractable cluster headache syndrome, unspecified chronicity pattern [facility] Family [facility] - Oswaldo Moreno MD 1 month ago Subacute maxillary sinusitis [facility] Family [facility] - Oswaldo Moreno MD 2 months ago [facility] - Connor Hutchinson APN, AIRCRAFT SERVICER Upcoming Appointments Future Appointments In [address], [facility] In 1 week Oswaldo Serrano MD [facility] Family Medicine - [facility] In 3 weeks Ok Jorge MD [facility] - Endocrinology [facility], [facility] FURNACE DOOR TENDER - Recent and Past Visits Recent Visits Date Type Provider Dept 01/14/21 Office Visit Connor Yuan APN, AIRCRAFT SERVICER [facility] 12/19/20 Office Visit Oswaldo Serrano MD [facility] 12/18/20 Telemedicine Oswaldo Serrano MD [facility] 12/08/20 Telemedicine Oswaldo Serrano MD [facility] 11/07/20 Telemedicine Connor Yuan APN, AIRCRAFT SERVICER [facility] 10/09/20 Office Visit Oswaldo Serrano MD [facility] 09/16/20 Telemedicine Oswaldo Serrano MD [facility] 07/18/20 Office Visit Connor Yuan APN, AIRCRAFT SERVICER [facility] 07/11/20 Telemedicine Connor Yuan APN, AIRCRAFT SERVICER [facility] 06/09/20 Office Visit Oswaldo Serrano [...] Outpatient Visits 1 week ago [facility] AIRCRAFT SERVICER 1 month ago Essential hypertension [facility] - DhirajOswaldo Venegas MD 1 month ago Intractable cluster headache syndrome, unspecified chronicity pattern [facility], Oswaldo A, MD 1 month ago Subacute maxillary sinusitis [facility] - Family Medicine - Oswaldo Moreno MD 2 months ago Chest congestion [facility] Medical [facility] Family Medicine - Connor Hutchinson APN, AIRCRAFT SERVICER Upcoming Appointments Future Appointments In [address], [facility] In 1 week Oswaldo Serrano MD [facility] Ok Jorge MD [facility] - [facility], [facility] FURNACE DOOR TENDER - Recent and Past Visits Recent Visits Date Type Provider Dept 01/14/21 Office Visit Connor Yuan APN, YUDI [facility] 12/19/20 Office Visit Oswaldo Serrano MD [facility] 12/18/20 Telemedicine Oswaldo Serrano MD [facility] 12/08/20 Telemedicine Oswaldo Serrano MD [facility] 11/07/20 Telemedicine Connor Yuan APN, YUDI [facility] [place] 10/09/20 Office Visit Oswaldo Serrano MD [facility] 09/16/20 Telemedicine Oswaldo Serrano MD [facility] 07/18/20 Office Visit Connor Yuan APN, YUDI [facility] [place] 07/11/20 Telemedicine Connor Yuan APN, YUDI [facility] 06/09/20 Office Visit Oswaldo Serrano MD [facility] Showing recent visits within past 460 days with a meds authorizing provider and meeting all other requirements Future Appointments Date Type Provider Dept 02/02/21 Appointment Oswlado Serrano MD [facility] Showing future appointments within next 90 days with a meds authorizing provider and meeting all other requirements documented in this encounter Plan of Treatment Upcoming Encounters Date Type Department Care Team (Late st Contact Info) Description 07/22/2025 2:30 PM CDT Telemedicine [facility] Endocrinology [facility] #2 [facility] [place] [address] Ok Jorge MD #[address] [place] [address] 07/30/2025 2:45 PM CDT Office Visit [facility] #2 [facility] [place] [address] Orlin Urbina, FERRY OPERATOR, AIRCRAFT SERVICER #2 [place] [address] 11/18/2025 2:30 PM LINE INSTALLATION SUPERVISOR Office Visit [facility] Family [facility] #2 [place] [address] Oswaldo Serrano MD #[address] [address] documented as of this encounter Visit Diagnoses Not on filedocumented in this encounter Additional Health Concerns Infection Onset Date Last Indicated Resolved Time COVID - 19 07/28/2021 07/29/2021 08/17/2021 12:1 6 AM LINE INSTALLATION SUPERVISOR Assessment Noted Time PHQ-9 Depression Total Score: 2 07/18/20 20 4:26 PM CDT documented as of this encounter Care Teams Medication Administration Professional Relationship Specialty Start Date End Date Oswaldo Serrano MD #[address] [address] PCP - General Family Medicine 05/19/17 Angel Crowe DPM #[address] [address] Consulting Physician Podiatry 06/16/17 Mora Fritz [place] Behavioral Health Navigator 06/15/18 Ok Jorge MD [facility] [address] [address] Consulting Physician Endocrinology 05/12/22 Orlin Urbina APRN, AIRCRAFT SERVICER #2 [place] [address] Nurse Practitioner Advanced Practice Nurse 11/09/22 documented as of this encounter
--- OUTSIDE RECORDS SUMMARY | 2025-07-21 16:27 | XMS_ITS | Encounter Summary ---
Author Organization [facility] Address [address] [place] [address] Phone Care Team Providers Care Mill Dresser Name Role Phone Oswaldo Serrano MD Primary Care Provider Angel Crowe DPM Unavailable [phone] Mora Fritz Unavailable Unavailable Ok Jorge MD Unavailable Orlin Urbina APRN, DIRECTOR OF PRODUCT DESIGN Unavailable [phone] Reason for Visit * Reason Comments Medication Refill Encounter Details Date Type Department Care Team (Late st Contact Info) Description 05/13/2021 Refill [facility] - [facility] Medicine - [place] #2 [place] [address] Ronda Pedraza APRN, DIRECTOR OF PRODUCT DESIGN #[address] [address] Medication Refill Social History Tobacco [...] Pending Prescriptions Disp Refills ergocalciferol (VITAMIN D) 28163 UNIT Capsule [Pharmacy Med Name: VITAMIN D 50,000UNIT CAP STR] 4 Capsule 2 Sig: TAKE ONE CAPSULE BY MOUTH ONCE WEEKLY healthfinch Off-Protocol Failed - 05/13/2021 11:44 AM Failed - Medication not assigned to a protocol, review manually. Passed - Valid encounter within last 12 months Past Office Visits Recent Outpatient Visits 2 months ago Urinary frequency [facility] - Family [facility] - Oswaldo Moreno MD 2 months ago B12 deficiency [facility] - Family [facility] - Oswaldo Moreno MD 3 months ago UTI symptoms [facility] - Connor Hutchinson APN, YUDI 4 months ago Essential hypertension [facility] - Oswaldo Moreno MD 4 months ago Intractable cluster headache syndrome, unspecified chronicity pattern [facility] Upcoming Appointments Future Appointments Tomorrow Connor Yuan APN, YUDI [facility] In 1 month Ok Jorge MD [facility] ADJUSTMENT EXAMINER - Recent and Past Visits Recent Visits Date Type Provider Dept 02/27/21 Office Visit Oswaldo Serrano MD [facility] 02/16/21 Office Visit Oswaldo Serrano MD [facility] 01/14/21 Office Visit Connor Yuan APN, YUDI [facility] 12/19/20 Office Visit Oswaldo Serrano MD [facility] 12/18/20 Telemedicine Oswaldo Serrano MD [facility] 12/08/20 Telemedicine Oswaldo Serrano MD [facility] 11/07/20 Telemedicine Connor Yuan APN, YUDI [facility] 10/09/20 Office Visit Oswaldo Serrano MD [facility] 09/16/20 Telemedicine Oswaldo Serrano MD [facility] 07/18/20 Office Visit Connor Yuan APN, YUDI [facility] Showing recent visits within [...] CDT Telemedicine [facility] Endocrinology [facility] #2 [place] [address] Ok Jorge MD #[address] [address] 07/30/2025 2:45 PM CDT Office Visit [facility] #2 [place] [address] Orlin Urbina APRN, DIRECTOR OF PRODUCT DESIGN #2 [place] [address] 11/18/2025 2:30 PM PLATFORM ARCHITECT Office Visit [facility] Family [facility] #2 [place] [address] Oswaldo Serrano MD #[address] [address] documented as of this encounter Visit Diagnoses Diagnosis Vitamin D deficiency Unspecified vitamin D deficiency documented in this encounter Additional Health Concerns Infection Onset Date Last Indicated Resolved Time COVID - 19 07/28/2021 07/29/2021 08/17/2021 12:1 6 AM PLATFORM ARCHITECT Assessment Noted Time PHQ-9 Depression Total Score: 2 07/18/20 4:26 PM CDT documented as of this encounter Care Teams Mill Dresser Relationship Specialty Start Date End Date Oswaldo Serrano MD #[address] [address] PCP - General Family Medicine 05/19/17 Angel Crowe DPM #[address] [address] Consulting Physician Podiatry 06/16/17 Mora Fritz [place] Behavioral Health Navigator 06/15/18 Ok Jorge MD #[address] [address] Consulting Physician Endocrinology 05/12/22 Orlin Urbina, ANIMAL RIDE ATTENDANT, DIRECTOR OF PRODUCT DESIGN #2 [place] [address] Nurse Practitioner Advanced Practice Nurse 11/09/22 documented as of this encounter
--- OUTSIDE RECORDS SUMMARY | 2025-07-21 16:27 | XMS_ITS | Encounter Summary ---
Author Organization [facility] Address [address] [place] [address] Phone Care Team Providers Care Fashion Director Party Plan Sales Name Role Phone Oswaldo Serrano MD Primary Care Provider Angel Crowe DPCiara Unavailable [phone] Mora Fritz Unavailable Unavailable Ok Jorge MD Unavailable Orlin Urbina APRN, COMPLAINT INVESTIGATOR Unavailable [phone] Reason for Visit * Reason Comments Medication Refill Encounter Details Date Type Department Care Team (Late st Contact Info) Description 05/27/2024 Refill [facility] - Family Medicine - [place] #[address] [place] [address] Oswaldo Serrano MD #[address] [address] Medication Refill Social History Tobacco Use Types Packs/Day Years Used Date Smoking Tobacco: Never Smokeless Tobacco: Never Alcohol Use Standard Drinks/Week Comments No 0 (1 standard drink = 0.6 oz pur e alcohol) [facility] Utilities Answer Date Recorded In [...] often do you attend chur ch or zoroastrianism services? Never 11/09/2023 Do you belong to [...] Score - Questions 1-9 0 10/3 10/2022 [facility] [place] of Occupat ional Health - Occupational Stress [...] Telemedicine [facility] - Endocrinology - [place] [address] [place] [address] Ok Jorge MD #[address] [place] [id number] 07/30/2025 2:45 PM CDT Office Visit [facility] #[address] [place] [address] Orlin Urbina APRN, COMPLAINT INVESTIGATOR #[address] [place] [address] 11/18/2025 2:30 PM NIGHT ORDER SELECTOR Office Visit [facility] - [facility] [place] #2 [place] [address] Oswaldo Serrano MD #[address] [address] documented as of this encounter Visit Diagnoses Not on filedocumented in this encounter Additional Health Concerns Assessment Noted Time PHQ-9 Depression Total Score: 0 08/09/20 23 2:56 PM CDT documented as of this encounter Care Teams Fashion Director Party Plan Sales Relationship Specialty Start Date End Date Oswaldo Serrano MD [address] [address] PCP - General Family Medicine 05/19/17 Angel Crowe DPM #[address] [address] Consulting Physician Podiatry 06/16/17 Mora Fritz [place] Behavioral Health Navigator 06/15/18 Ok Jorge MD #[address] [address] Consulting Physician Endocrinology 05/12/22 Orlin Urbina APRN, COMPLAINT INVESTIGATOR #[address] [place] [address] Nurse Practitioner Advanced Practice Nurse 11/09/22 documented as of this encounter
--- OUTSIDE RECORDS SUMMARY | 2025-07-21 16:27 | XMS_ITS | Encounter Summary ---
Author Organization [facility] Address [address] [place] [address] Phone Care Team Providers Care Slip Filler Name Role Phone Oswaldo Serrano MD Primary Care Provider Angel Crowe DPM Unavailable [phone] Mora Fritz Unavailable Unavailable Ok Jorge MD Unavailable Orlin Urbina APRN, ITEM PROCESSOR Unavailable [phone] Reason for Visit * Reason Comments Medication Refill Encounter Details Date Type Department Care Team (Late st Contact Info) Description 02/18/2021 Refill [facility] - [facility] Medicine - [place] #2 [place] [address] Connor Yuan APRN, ITEM PROCESSOR #[address] [address] Medication Refill Social History Tobacco Use Types [...] Pending Prescriptions Disp Refills ergocalciferol (VITAMIN D) [address]398 UNIT Capsule [Pharmacy Med Name: VITAMIN D [...] - Family Medicine - Connor Hutchinson APN, ITEM PROCESSOR 2 months ago Essential hypertension [facility] - [facility] - Oswaldo Moreno MD 2 months ago Intractable cluster headache syndrome, unspecified chronicity pattern [facility] - Family Medicine - Oswaldo Moreno MD 2 months ago Subacute maxillary sinusitis [facility] - Family Medicine - [place] Venegas MD Upcoming Appointments Future Appointments In 1 week Oswaldo Serrano MD [facility] Family Medicine [facility], [facility] In 2 weeks [facility], [facility] In 2 weeks Ok Jorge MD [facility] Medical [facility] - Endocrinology [facility], [facility] WEB APPLICATION DEV SPECIALIST - Recent and Past Visits Recent Visits Date Type Provider Dept 02/16/21 Office Visit Oswaldo Serrano MD [facility] 01/14/21 Office Visit Connor Yuan APN, ITEM PROCESSOR [facility] 12/19/20 Office Visit Oswaldo Serrano MD [facility] 12/18/20 Telemedicine Oswaldo Serrano MD [facility] 12/08/20 Telemedicine Oswaldo Serrano MD [facility] 11/07/20 Telemedicine Connor Yuan APN, ITEM PROCESSOR [facility] 10/09/20 Office Visit Oswaldo Serrano MD [facility] 09/16/20 Telemedicine Oswaldo Serrano MD [facility] 07/18/20 Office Visit Connor Yuan APN, ITEM PROCESSOR [facility] 07/11/20 Telemedicine Connor Yuan APN, ITEM PROCESSOR [facility] Showing recent visits within past [...] Info) Description 07/22/2025 2:30 PM CDT Telemedicine [facility] Medical [facility] - Endocrinology - [place] #2 [place] [address] Ok Jorge MD #[address] [address] 07/30/2025 2:45 PM CDT Office Visit [facility] #2 [place] [address] Orlin Urbina SHIELD RUNNER, ITEM PROCESSOR #2 [place] [address] 11/18/2025 2:30 PM LOW EMISSION AUTOMOBILE DESIGNER Office Visit [facility] #2 [place] [address] Oswaldo Serrano MD #[address] [address] documented as of this encounter Visit Diagnoses Diagnosis Vitamin D deficiency Unspecified vitamin D deficiency documented in this encounter Additional Health Concerns Infection Onset Date Last Indicated Resolved Time COVID - 19 07/28/2021 07/29/2021 08/17/2021 12:1 6 AM LOW EMISSION AUTOMOBILE DESIGNER Assessment Noted Time PHQ-9 Depression Total Score: 2 07/18/20 4:26 PM CDT documented as of this encounter Care Teams Slip Filler Relationship Specialty Start Date End Date Oswaldo Serrano MD #[address] [address] PCP - General Family Medicine 05/19/17 Angel Crowe DPM #[address] [address] Consulting Physician Podiatry 06/16/17 Mora Fritz Behavioral Health Navigator 06/15/18 Ok Jorge MD #[address] [address] Consulting Physician Endocrinology 05/12/22 Orlin Urbina, JOHN, ITEM PROCESSOR #2 [place] [address] Nurse Practitioner Advanced Practice Nurse 11/09/22 documented as of this encounter
--- OUTSIDE RECORDS SUMMARY | 2025-07-21 16:27 | XMS_ITS | Clinical Summary ---
Author Organization [facility] Address [address] [place] [address] Care Team Providers Care Ship'S Cook Name Role Phone Oswaldo Serrano MD Primary Care Provider [phone] Pastora Flores MD Unavailable Sandro Hong MD [...] 1 tablet by mouth daily Active multivit wjfxpyar-sxjx-AM -calcium (THERA-M) 9 mg iron-400 mcg tablet [...] At outside hospital, before this transferral to [facility], she was agitated requiring IV Haldol [...] At outside hospital, before this transferral to [facility], she was agitated requiring IV Haldol [...] At outside hospital, before this transferral to [facility], she was agitated requiring IV Haldol [...] At outside hospital, before this transferral to [facility], she was agitated requiring IV Haldol [...] At outside hospital, before this transferral to [facility], she was agitated requiring IV Haldol [...] At outside hospital, before this transferral to [facility], she was agitated requiring IV Haldol [...] At outside hospital, before this transferral to [facility], she was agitated requiring IV Haldol [...] At outside hospital, before this transferral to [facility], she was agitated requiring IV Haldol [...] At outside hospital, before this transferral to [facility], she was agitated requiring IV Haldol [...] At outside hospital, before this transferral to [facility], she was agitated requiring IV Haldol [...] At outside hospital, before this transferral to [facility], she was agitated requiring IV Haldol [...] At outside hospital, before this transferral to [facility], she was agitated requiring IV Haldol [...] At outside hospital, before this transferral to [facility], she was agitated requiring IV Haldol [...] At outside hospital, before this transferral to [facility], she was agitated requiring IV Haldol [...] was referred to Valve clinic here at [facility]. However, she did not follow up. [...] was referred to Valve clinic here at [facility]. However, she did not follow up. [...] was referred to Valve clinic here at [facility]. However, she did not follow up. [...] was referred to Valve clinic here at [facility]. However, she did not follow up. [...] was referred to Valve clinic here at [facility]. However, she did not follow up. [...] was referred to Valve clinic here at [facility]. However, she did not follow up. [...] was referred to Valve clinic here at [facility]. However, she did not follow up. [...] was referred to Valve clinic here at [facility]. However, she did not follow up. [...] was referred to Valve clinic here at [facility]. - Consult valve team for possible TR repair Assessment & Plan (02/24/2025 5:36 AM CDT): CTS was consulted during Oct 2024 admission and mentioned not candidate for surgery due to intellectual disability and will not do well postop in ICU with tubes. - Referred to Valve clinic here at [facility] Acute exacerbation of chronic heart failure 02/07 Assessment & Plan (03/05/2025 10:58 AM CDT): Presented to [place] [facility] for MAYS, orthopnea, difficulty mobilizing for 2-3 weeks. Her outreach counselor Dr. Flores increased lasix from 40 every [...] Plan (03/04/2025 10:24 AM CDT): Presented to [place] [facility] for MAYS, orthopnea, difficulty mobilizing for 2-3 weeks[address] Her outreach counselor Dr. Flores increased lasix from 40 every [...] Plan (03/03/2025 7:19 AM CDT): Presented to [place] [facility] for MAYS, orthopnea, difficulty mobilizing for 2-3 weeks. Her outreach counselor Dr. Flores increased lasix from 40 every [...] Plan (03/02/2025 2:33 PM CDT): Presented to [place] [facility] for MAYS, orthopnea, difficulty mobilizing for 2-3 weeks[address] Her outreach counselor Dr. Flores increased lasix from 40 every [...] Plan (03/01/2025 10:24 AM CDT): Presented to [place] [facility] for MAYS, orthopnea, difficulty mobilizing for 2-3 weeks. Her outreach counselor Dr. Flores increased lasix from 40 every [...] Plan (02/28/2025 3:45 PM CDT): Presented to [place] [facility] for MAYS, orthopnea, difficulty mobilizing for 2-3 weeks. Her outreach counselor Dr. Flores increased lasix from 40 every [...] Plan (02/27/2025 12:52 PM CDT): Presented to [place] [facility] for MAYS, orthopnea, difficulty mobilizing for 2-3 weeks. Her outreach counselor Dr. Flores increased lasix from 40 every [...] Plan (02/26/2025 11:04 AM CDT): Presented to [place] [facility] for MAYS, orthopnea, difficulty mobilizing for 2-3 weeks. Her outreach counselor Dr. Flores increased lasix from 40 every [...] Plan (02/25/2025 11:56 AM CDT): Presented to [place] [facility] for MAYS, orthopnea, difficulty mobilizing for 2-3 weeks[address] Her outreach counselor Dr. Flores increased lasix from 40 every [...] Plan (02/24/2025 6:41 AM CDT): Presented to [place] [facility] for MAYS, orthopnea, difficulty mobilizing for [...] AICD Removed in 07/2024, started cefadroxil daily Surgical History Surgery Date Site/Laterality Comments CARDIAC DEFIBRILLATOR PLACEMENT INSERT / REPLACE / REMOVE PACEMAKER CHOLECYSTECTOMY OTHER SURGICAL HISTORY 05/31/2024 CHANCE/CARDIOVERSION IR PICC LINE PLACEMENT > 5 YEARS 06/05/2024 N/A Medical History Medical History Date Comments CHF (congestive heart failure) (HCC) Diabetes mellitus A-fib (HCC) Hypertension GERD (gastroesophageal reflux disease) Thyroid disease OAB (overactive bladder) Intellectual disability Sleep apnea Social History Tobacco Use Types Packs/Day Years Used Date Smoking Tobacco: Never Smokeless Tobacco: Never Tobacco Cessation:Counseling Given: No [facility] Utilities Answer Date Recorded In the past 12 months has th e electric, gas, oil, or water [employer] threatened to shut off services in your [...] living in a fci (including now)? No 02/25/2025 Personal Safety Answer Date Recorded Have you ever been in or are you currently in a harmful physical or emotional relationship or is someone making you feel afraid or unsafe? Denies 02/24/2025 Comments No Sex and Gender Information Value Date Recorded Sex Assigned at Not on file Legal Sex Female 3:51 AM BILLING ANALYST Gender Identity Not on file Sexual [...] Cancer Screening-Mammogram 10/27/2022 022, 10/17/2018 Covid-19 Vaccine (2024-2 6 season) 2025 01/18/2021, 12/23/2020 Influenza Vaccine (#1) 2025 , 07/18/2020, 06/22/2019, Additional history exists Hemoglobin A1C 08/26/2025 02/23/2025, 10/10, 07/07/2024, Additional history exists Depression Screening 02/21/2026 02/21/2025, 07/03/20 Lipid Panel 02/24/2026 02/24/2025, 10/10/2023, 07/09/2024 eGFR 03/04/2026 03/04/2025, 02/08, 03/03/2025, Additional [...] history exists Medical Devices Implanted Type Area Freight And Passenger Agent Device Identifier Shelf Expiration Date Model / Serial / Lot Biotronik Iperia 7 Drt-05/20/2017 Implanted:08/2017 by Jasper Mcfarland MD (Quantity not on file) ICD Chest Wall Biotronik [id number] / [id number] / Biotronik Rv Lead [id number]/2 [id number] Implanted:08/2017 (Quantity not on file) Lead Heart [id number] / [id number] / Biotronik Ra Lead [id number]/21/2 [id number] Implanted: (Quantity not on file) Lead Heart Biotronik [id number] / [id number] / Unknown Wire (~5cm Long) Other - see comments Chest Stent Stent Heart [facility] Mynxgrip 5fr Balloon Catheter Integrate Sealant Lock Latex Free [id number] - [id number] Implanted:Qty : 1 on 10/23/2024 by Sandro Hong MD at [facility] 07/17/2026 [id number] / / [id number] Procedures Procedure Name Priority Date/Time Associated Diagnosis [...] glomerular filtration rate is determined by the 2021 CKD-EPI equation recommended by the National Kidney [...] ORDERABLES Final R esult Performing Organization Address [facility] Co de Phone Number [facility] [place] [address] * (ABNORMAL) Hepatitis panel, acute Blood (02/24/2025 11:49 AM CDT) Hep A IgM Nonreactive Nonreactive Hep B core IgM Nonreactive Nonreactive [facility] Hep C Ab Reactive(A) Nonreactive [facility] Comment: Reactive for HCV antibodies. This may represent current or past HCV infection. Supplemental molecular testing will be automatically performed to determine current infection status in accordance with current CDC screening recommendations. Current interpretive data was last revised on 22 HepBsAg Nonreactive Nonreactive [facility] Blood 02/24/2025 11:4 9 AM CDT 02/24/2025 12:17 PM CDT us Geo Subramanian MD PhD LAB MICROBIOLOGY - GENERAL ORDERABLES Final Result Performing Organization Address [facility] Co de Phone Number [facility] Department [place] [employer] [place] [address] * (ABNORMAL) Lipid panel (02/24/2025 11:49 AM [...] on 2018. Triglycerides 70 <=149 mg/dL [facility] Comment: Interpretive Data Ages < or [...] on 2018. HDL 16(L) >=40 mg/dL [facility] Comment: Interpretive Data Ages < or [...] 2018. LDL, calculated 73 <=129 mg/dL [facility] Comment: Interpretive Data Ages < or = 19 years Acceptable: <110 mg/dL Borderline high: 110-129 mg/dL High: >or= 130 mg/dL Ages > or = 20 years Optimal: <100 mg/dL Near optimal: 100-129 mg/dL Borderline high: 130-159 mg/dL High: >160 mg/dL Calculated using the Phelps LDL-C estimating [...] revised on 2024. Non-HDL Cholesterol 88 mg/dL [facility] Comment: Interpretive Data Ages < or = [...] last revised on 2018. Chol/HDL ratio 7 [facility] Blood 02/24/2025 11:4 9 AM CDT 02/24/2025 12:36 PM CDT us Geo Subramanian MD PhD LAB BLOOD ORDERABL ES Final Result [facility] [place] [address] * (ABNORMAL) Hemoglobin A1c (02/23/2025 9:51 PM CDT) Hgb A1C 8.6(H) 4.0 - 5.6 % Estimated Average Glucose 200 mg/dL [facility] Comment: The ADA recommends reporting an estimated Average Glucose (eAG) with all Hemoglobin A1c results using the equation derived from a study of 507 normal and diabetic adults. Minority populations were underrepresented and children were not included. (Diabetes Care 2020; 43(S1): S66-S76). The eAG is not equivalent to a fasting glucose. Blood 02/23/2025 9:51 PM CDT 02/23/2025 10:40 PM CDT Narrative [facility] - 02/24/2025 5:17 PM CDT reflex us Geo Subramanian MD PhD LAB BLOOD ORDERABL ES Final Result [facility] Department [place] [address] * COLONOSCOPY REPORT (03/04/2017) Anatomical Region Laterality Modality Other Narrative 03/04/2017 Ordered by an unspecified provider. us Historical Provider GI PROCEDURE ORDERABLES F inal Result from Last 3 Months or Most Recently Relevant to Health Maintenance Insurance MEDICARE [facility] Advance Directives For more information, please contact: [phone] * Full Code (Latest Code Status on [...] 9:54 PM 06/09/2024 3:14 AM Care Teams Ship'S Cook Relationship Specialty Start Date End Date Oswaldo Serrano MD [address] [address] PCP - General Family Medicine 04/14/18 [place] [address] [facility] [address] [place] [address] Consulting Physician Cardiology 06/08/24 Sandro Hong MD [address] [place] [address] Referring Physician Cardiology 06/21/24 Juanis Lo MD [address] [facility] [address] [place] [address] Referring Physician Cardiology 03/29/25
--- OUTSIDE RECORDS SUMMARY | 2025-07-21 16:27 | XMS_ITS | Encounter Summary ---
Author Organization [facility] Address [address] [place] [address] Phone Care Team Providers Care Chimney Builder Name Role Phone Oswaldo Serrano MD Primary Care Provider [phone] Angel Crowe DPCiara Unavailable [phone] Mora Fritz Unavailable Unavailable Ok Jorge MD Unavailable Orlin Urbina APRN, AIRPLANE DISPATCH CLERK Unavailable [phone] Reason for Visit * Reason Comments Medication Refill Encounter Details Date Type Department Care Team (Late st Contact Info) Description 07/15/2023 Refill [facility] - Family Medicine - [place] [address] [place] [address] Oswaldo Serrano MD [address] [address] Medication Refill Social History Tobacco Use Types [...] [place] 08/26/22 Office Visit Connor Yuan APRN, AIRPLANE DISPATCH CLERK [facility] Showing recent visits within past 365 [...] PM CDT Telemedicine [facility] - Endocrinology [facility] [address] [place] [address] Ok Jorge MD #2 [facility] [address] [place] [address] 07/30/2025 2:45 PM CDT Office Visit [facility] [address] [place] [address] Orlin Urbina APRN, AIRPLANE DISPATCH CLERK [address] [place] [address] 11/18/2025 2:30 PM SOUND ART INSTRUCTOR Office Visit [facility] Family Medicine [facility] [address] [place] [address] Oswaldo Serrano MD #2 [facility] [address] [place] [address] documented as of this encounter Visit Diagnoses Diagnosis Chronic congestive heart failure, unspecified heart failure type documented in this encounter Additional Health Concerns Assessment Noted Time PHQ-9 Depression Total Score: 0 10/14/19 23 11:00 AM SOUND ART INSTRUCTOR documented as of this encounter Care Teams Chimney Builder Relationship Specialty Start Date End Date Oswaldo Serrano MD [address]2 [facility] [address] [place] [address] PCP - General Family Medicine 05/19/17 Angel Crowe DPM #2 [facility] [address] [place] [address] Consulting Physician Podiatry 06/16/17 Mora Fritz Behavioral Health Navigator 06/15/18 Ok Jorge MD [facility] [address] [place] [address] Consulting Physician Endocrinology 05/12/22 Orlin Urbina, MANAGER INTENSIVE CARE, AIRPLANE DISPATCH CLERK [address] [place] [address] Nurse Practitioner Advanced Practice Nurse 11/09/22 documented as of this encounter
--- OUTSIDE RECORDS SUMMARY | 2025-07-21 16:27 | XMS_ITS | Encounter Summary ---
Author Organization [facility] Address [address] [place] [address] Phone Care Team Providers Care Crew Scheduler Name Role Phone Oswaldo Serrano MD Primary Care Provider [phone] Angel Crowe DPM Unavailable [phone] Mora Fritz Unavailable Unavailable Ok Jorge MD Unavailable Orlin Urbina APRN, PROCUREMENT PROFESSIONAL LOGISTICS Unavailable [phone] Reason for Visit * Reason Comments Medication Refill Encounter Details Date Type Department Care Team (Late st Contact Info) Description 04/15/2021 Refill [facility] [address] [place] [address] Oswaldo Serrano MD #[address] [address] Medication Refill Social History Tobacco [...] Info) Description 07/22/2025 2:30 PM CDT Telemedicine [facility] - Endocrinology [facility] [address] [place] [address] Ok Jorge MD #[address] [address] 07/30/2025 2:45 PM CDT Office Visit [facility] [address] [place] [id number] Orlin Urbina, [place] MINER, PROCUREMENT PROFESSIONAL LOGISTICS [address] [place] [address] 11/18/2025 2:30 PM GUN REPAIR CLERK Office Visit [facility] Medical [facility] - Family Medicine [facility] [address] [place] [address] Oswaldo Serrano MD #2 [facility] [address] [place] [address] documented as of this encounter Visit Diagnoses Not on filedocumented in this encounter Additional Health Concerns Infection Onset Date Last Indicated Resolved Time COVID - 19 07/28/2021 07/29/2021 08/17/2021 12:1 6 AM GUN REPAIR CLERK Assessment Noted Time PHQ-9 Depression Total Score: 2 07/18/20 20 4:26 PM CDT documented as of this encounter Care Teams Crew Scheduler Relationship Specialty Start Date End Date Oswaldo Serrano MD #2 [facility] [address] [place] [address] PCP - General Family Medicine 05/19/17 Angel Crowe DPM [address]2 [facility] [address] [place] [address] Consulting Physician Podiatry 06/16/17 Mora Fritz PR Behavioral Health Navigator 06/15/18 Ok Jorge MD #2 [facility] [address] [place] [address] Consulting Physician Endocrinology 05/12/22 Orlin Urbina APRN, PROCUREMENT PROFESSIONAL LOGISTICS [address] [place] [address] Nurse Practitioner Advanced Practice Nurse 11/09/22 documented as of this encounter
[2025-07-21 16:31] LABS: NT Pro B Type Natriuretic Pept 10100 pg/mL (19.9-100); Troponin I 0.020 ng/mL (0.000-0.034)
[2025-07-21 16:42] LABS: Influenza A QL RT-PCR Negative (Negative); Influenza B QL RT-PCR Negative (Negative); RSV RNA, RT-PCR Negative (Negative); SARS-CoV-2 RNA PCR Negative (Negative)
[2025-07-21 16:50] LABS: Add Urine Microscopic? YES; Appearance Urine Cloudy (Clear); Glucose Urine UA 3+ mg/dL (Negative); Leukocyte Esterase Ur Trace LEU/UL (Negative); Need Manual Microscopic Reviewed; Nitrate Urine Negative (Negative); Specific Grav Ur 1.022 (1.001-1.035)
[2025-07-21 16:52] LABS: Thyroid Stimulating Hormone Reflex 4.550 uIU/mL (0.465-4.68)
[2025-07-21 17:39] LABS: Free T4 Free Thyroxine Reflex 2.81 ng/dL (0.78-2.19)
--- NOTE | 2025-07-21 17:46 | ED.GENADULT ---
HPI - General Adult General Chief complaint: Nausea/Vomiting/Diarrhea Stated complaint: EDEMA Time Seen by Provider: 07/21/25 15:30 History of Present Illness HPI narrative: Patient has cognitive impairment which limits history taking. This is a 64-year-old female with history of developmental delay, CHF presenting for multiple complaints. Over the last several days she has gained 4 lb. She has not developed shortness of breath and abdominal discomfort. She is also complaining of nausea. Last bowel movement was yesterday and was constipated. Despite her cognitive impairment the patient lives alone by herself. She has lived in numerous nursing homes but appears that she has been asked not to come back to several of them and is not living alone. Her 2 sisters help her out. They feel she is safe to live on her own. Related Data Home Medications ?Medication ?Instructions ?Recorded ?Confirmed ?Last Taken ?Type cholecalciferol (vitamin D3) 125 5,000 unit PO DAILY 02/23/25 06/08/25 03/05/25 History mcg (5,000 unit) tablet apixaban 5 mg tablet (Eliquis) 5 mg PO BID 06/08/25 06/08/25 Unknown History ascorbic acid (vitamin C) 500 mg 500 mg PO DAILY 06/08/25 06/08/25 Unknown History tablet (Vitamin C) buspirone 10 mg tablet 10 mg PO BID 06/08/25 06/08/25 Unknown History insulin aspart U-100 100 unit/mL 15 unit subcut TID 06/08/25 06/08/25 Unknown History (3 mL) subcutaneous pen metoprolol succinate 50 mg 25 mg PO DAILY 06/08/25 06/08/25 Unknown History tablet,extended release 24 hr vibegron 75 mg tablet (Gemtesa) 75 mg PO DAILY 06/08/25 06/08/25 Unknown History cefadroxil 500 mg capsule 1,000 mg PO Q12H 06/10/25 06/10/25 Unknown History cyanocobalamin (vitamin B-12) 500 500 mcg PO DAILY 06/10/25 06/10/25 Unknown History mcg tablet (B-12 DOTS) spironolactone 25 mg tablet 12.5 mg PO DAILY 06/10/25 06/10/25 Unknown History Allergies Allergy/AdvReac Type Severity Reaction Status Date / Time Sulfa (Sulfonamide Allergy Mild RASH Verified 07/21/25 14:44 Antibiotics) certain metals Allergy Unknown Unknown Uncoded 03/05/25 23:36 [facility] Past Medical History Medical History Thrombocytopenia Bacteremia Overactive bladder GERD (gastroesophageal reflux disease) Atrial fibrillation Pacemaker Hypothyroidism HTN (hypertension) Diabetes Surgical History Surgical History AICD (automatic cardioverter/defibrillator) present Family History Family History Mother Diabetes mellitus Epilepsy CAD (coronary artery disease) Stented coronary artery Dementia COVID Father Diabetes mellitus Sibling Hypertension Sibling Murder of sister Sibling Unknown family medical history Social History Social History Years smoked: 3 Smoking status: Never smoker Alcohol intake: never Substance use: unknown Substance use type: does not use Do You Feel Safe in your Home?: Yes Lack of Transportation: No Lack of Food: Never True Current Housing: I Have Housing Concerned About Future Housing: No Difficulty Paying Gas/Electric Bills: No Difficulty Paying for Meds: No Currently Unemployed: No Education: Grade School Difficulty w/ Childcare or Family Care: No Gender identity (if verbalized by the patient): Female Spiritual care concerns: No Exam Narrative: APPEARANCE: No apparent distress. Head: atraumatic. EYES: EOMI, NOSE: Atraumatic NECK: Trachea midline RESPIRATORY: Tachypneic, clear lung sounds CARDIOVASCULAR: Tachycardic, no peripheral edema ABDOMINAL: Obese, nontender no guarding or rebound MUSCULOSKELETAl: No obvious deformities NEURO: Alert. Moving 4/4 extremities SKIN:: Warm, dry. Normal color PSYCHIATRIC: Normal affect Course Vital Signs Vital signs: Vital Signs Temperature 97.6 F 07/21/25 14:49 Pulse Rate 121 H 07/21/25 14:49 Respiratory Rate 20 07/21/25 14:49 Blood Pressure 119/69 07/21/25 14:49 Pulse Oximetry 100 07/21/25 14:49 Oxygen Delivery Room Air 07/21/25 14:49 Temperature 97.6 F 07/21/25 14:49 Pulse Rate 121 H 07/21/25 14:49 Respiratory Rate 20 07/21/25 14:49 Blood Pressure 119/69 07/21/25 14:49 Pulse Oximetry 100 07/21/25 14:49 Oxygen Delivery Room Air 07/21/25 14:49 Medical Decision Making MDM Narrative Medical decision making narrative: -Course: 64-year-old female with cognitive impairment, congestive heart failure and paroxysmal atrial fibrillation presenting with weight gain difficulty breathing and abdominal discomfort. Patient has been taking her spironolactone although the family states she used to be on Lasix that was discontinued after last hospital stay. On exam she is tachycardic in atrial fibrillation with a heart rate between 100-120s. No other significant findings on physical exam. Chest x-ray [place] [address]. Patient is tachypneic but is not have any additional oxygen requirements. She will be given 40 mg of Lasix. Given 5 mg of Lopressor for her AFib with RVR. Patient has limited ability to care for self she lives in her own. Patient will be to the hospital for of her CHF exacerbation with and AFib with RVR. -DDX includes but is not limited to: CHF pneumonia COPD fluid overload sepsis -Co-morbidities complicating care: Cognitive disability, CHF diabetes, hypertension, paroxysmal AFib -Social determinants of health: Lives alone Independent EKG interpretation: Rhythm atrial fibrillation, Rate [106], Maxwell -[normal], NM -[none], QRS wide, QTC [normal], T waves -[negative for concerning inversions], ST Segments - [Negative for concerning elevations] Final interpretations: Atrial fibrillation Vital Signs Vital Signs: Vital Signs Temperature 97.6 F 07/21/25 14:49 Pulse Rate 121 H 07/21/25 14:49 Respiratory Rate 20 07/21/25 14:49 Blood Pressure 119/69 07/21/25 14:49 Pulse Oximetry 100 07/21/25 14:49 Oxygen Delivery Room Air 07/21/25 14:49 Temperature 97.6 F 07/21/25 14:49 Pulse Rate 121 H 07/21/25 14:49 Respiratory Rate 20 07/21/25 14:49 Blood Pressure 119/69 07/21/25 14:49 Pulse Oximetry 100 07/21/25 14:49 Oxygen Delivery Room Air 07/21/25 14:49 Lab Data 07/21/25 16:00 07/21/25 16:00 Labs: Lab Results 07/21/25 07/21/25 07/21/25 Range/Units 15:54 16:00 16:01 WBC 4.1 L (4.5-10.0) K/mm3 RBC 3.66 L (4.2-5.4) M/mm3 Hgb 12.3 (12.0-15.0) g/dL Hct 37.3 (37.0-47.0) % MCV 101.9 H (80-100) fl MCH 33.6 (26-34) pg MCHC 33.0 (32-36) g/dl RDW 16.5 H (11.5-14.5) % Plt Count 268 (150-375) k/mm3 MPV 8.9 (7.4-10.4) fl Immature Gran % (Auto) 0.5 (0-0.5) % Neut % (Auto) 68.4 (45.5-73.1) % Lymph % (Auto) 16.6 L (18.3-44.2) % Carlton % (Auto) 11.5 H (2.6-8.5) % Eos % (Auto) 2.0 (0-4.4) % Baso % (Auto) 1.0 (0.2-1.2) % Lymph # (Auto) 0.68 L (0.9-3.2) K/mm3 Carlton # (Auto) 0.5 (0.1-0.6) K/mm3 Eos # (Auto) 0.1 (0-0.3) K/mm3 Baso # (Auto) 0.0 (0.0-0.1) K/mm3 Abs Immat Gran (auto) 0.02 (0.00-0.031) K/mm3 Absolute Neuts (auto) 2.8 (1.3-6.7) K/mm3 Absolute Nucleated RBC 0.000 (0.0-0.012) K/mm3 Nucleated RBC % 0.0 (0.0-0.2) % PT 25.5 H (11.1-14.7) Seconds INR 2.4 APTT 44.3 H (22.3-36.8) Seconds Sodium 122 L (137-145) mmol/L Potassium 5.4 H (3.4-5.0) mmol/L Chloride 94 L (98-107) mmol/L Carbon Dioxide 19 L (22-30) mmol/L Anion Gap 9 (4-12) mmol/L BUN 27 H D (7-17) mg/dL Creatinine 0.99 (0.7-1.0) mg/dL Estim Creat Clear Calc 63 ml/min Estimated GFR 57 L (59 - ) Glucose 150 H (65-110) mg/dL POC Capillary Glucose 162 H (65-105) mg/dl Lactic Acid 1.9 (0.7-2.0) mmol/L Calcium 9.3 (8.4-10.2) mg/dL Magnesium 2.2 (1.6-2.3) mg/dL Total Bilirubin 3.7 H (0.2-1.3) mg/dL AST 73 H (14-36) U/L ALT 32 (6-35) U/L Alkaline Phosphatase 416 H (38-126) U/L Troponin I 0.020 (0.000-0.034) ng/mL NT-Pro-B Natriuret Pep 12997 H Cancelled (19.9-100) pg/mL Total Protein 7.5 (6.3-8.2) g/dL Albumin 3.7 (3.5-5.1) g/dL Lipase 33 (23-300) U/L TSH (Reflex) 4.550 (0.465-4.68) uIU/mL Free T4 2.81 H (0.78-2.19) ng/dL Urine Color (Yellow) Urine Appearance (Clear) Urine pH (5.0-9.0) Ur Specific Gilmer (1.001-1.035) Urine Protein (Negative) mg/dL Urine Glucose (UA) (Negative) mg/dL Urine Ketones (Negative) mg/dL Ur Blood (Man) (Negative) Urine Nitrate (Negative) Urine Bilirubin (Negative) Urine Urobilinogen (<2.0) mg/dL Add Ur Microanalysis Leukocyte Esterase Rfl (Negative) LETICIA/UL Urine RBC (0-2) /hpf Urine WBC (0-3) /hpf Ur Squamous Epith Cells (Few) /hpf Urine Bacteria /hpf Urine Casts Influenza A (RT-PCR) Negative (Negative) Influenza B (RT-PCR) Negative (Negative) RSV (RT-PCR) Negative (Negative) SARS-CoV-2 RNA (RT-PCR) Negative (Negative) 07/21/25 Range/Units 16:18 WBC (4.5-10.0) K/mm3 RBC (4.2-5.4) M/mm3 Hgb (12.0-15.0) g/dL Hct (37.0-47.0) % MCV (80-100) fl MCH (26-34) pg MCHC (32-36) g/dl RDW (11.5-14.5) % Plt Count (150-375) k/mm3 MPV (7.4-10.4) fl Immature Gran % (Auto) (0-0.5) % Neut % (Auto) (45.5-73.1) % Lymph % (Auto) (18.3-44.2) % Carlton % (Auto) (2.6-8.5) % Eos % (Auto) (0-4.4) % Baso % (Auto) (0.2-1.2) % Lymph # (Auto) (0.9-3.2) K/mm3 Carlton # (Auto) (0.1-0.6) K/mm3 Eos # (Auto) (0-0.3) K/mm3 Baso # (Auto) (0.0-0.1) K/mm3 Abs Immat Gran (auto) (0.00-0.031) K/mm3 Absolute Neuts (auto) (1.3-6.7) K/mm3 Absolute Nucleated RBC (0.0-0.012) K/mm3 Nucleated RBC % (0.0-0.2) % PT (11.1-14.7) Seconds INR APTT (22.3-36.8) Seconds Sodium (137-145) mmol/L Potassium (3.4-5.0) mmol/L Chloride (98-107) mmol/L Carbon Dioxide (22-30) mmol/L Anion Gap (4-12) mmol/L BUN (7-17) mg/dL Creatinine (0.7-1.0) mg/dL Estim Creat Clear Calc ml/min Estimated GFR (59 - ) Glucose (65-110) mg/dL POC Capillary Glucose (65-105) mg/dl Lactic Acid (0.7-2.0) mmol/L Calcium (8.4-10.2) mg/dL Magnesium (1.6-2.3) mg/dL Total Bilirubin (0.2-1.3) mg/dL AST (14-36) U/L ALT (6-35) U/L Alkaline Phosphatase (38-126) U/L Troponin I (0.000-0.034) ng/mL NT-Pro-B Natriuret Pep (19.9-100) pg/mL Total Protein (6.3-8.2) g/dL Albumin (3.5-5.1) g/dL Lipase (23-300) U/L TSH (Reflex) (0.465-4.68) uIU/mL Free T4 (0.78-2.19) ng/dL Urine Color Dark yellow (Yellow) Urine Appearance Cloudy H (Clear) Urine pH 5.0 (5.0-9.0) Ur Specific Gilmer 1.022 (1.001-1.035) Urine Protein 1+ H (Negative) mg/dL Urine Glucose (UA) 3+ H (Negative) mg/dL Urine Ketones Negative (Negative) mg/dL Ur Blood (Man) Negative (Negative) Urine Nitrate Negative (Negative) Urine Bilirubin Negative (Negative) Urine Urobilinogen 1.0 (<2.0) mg/dL Add Ur Microanalysis Reviewed Leukocyte Esterase Rfl Trace H (Negative) LETICIA/UL Urine RBC 6-10 H (0-2) /hpf Urine WBC 0-5 (0-3) /hpf Ur Squamous Epith Cells None seen (Few) /hpf Urine Bacteria None seen /hpf Urine Casts 11-20 Influenza A (RT-PCR) (Negative) Influenza B (RT-PCR) (Negative) RSV (RT-PCR) (Negative) SARS-CoV-2 RNA (RT-PCR) (Negative) Discharge Plan Discharge Clinical Impression: CHF (congestive heart failure), Atrial fibrillation with rapid ventricular response Patient Disposition: Still a Patient Condition: Stable Patient Language: Malay Prescriptions: No Action buspirone 10 mg tablet 10 mg PO BID insulin aspart U-100 100 unit/mL (3 mL) insulin pen 15 unit SUBCUT TID ascorbic acid (vitamin C) [Vitamin C] 500 mg tablet 500 mg PO DAILY Eliquis 5 mg tablet 5 mg PO BID Gemtesa 75 mg tablet 75 mg PO DAILY metoprolol succinate 50 mg tablet extended release 24 hr 25 mg PO DAILY cyanocobalamin (vitamin B-12) [B-12 DOTS] 500 mcg tablet 500 mcg PO DAILY spironolactone 25 mg tablet 12.5 mg PO DAILY cefadroxil 500 mg capsule 1,000 mg PO Q12H cholecalciferol (vitamin D3) 125 mcg (5,000 unit) tablet 5,000 unit PO DAILY hydrocortisone 1 % Cream 1 applic topical Q12HR PRN (Reason: Itching) Qty: 10 0RF nortriptyline 10 mg Capsule 10 mg PO HS Qty: 30 0RF insulin glargine [Lantus U-100 Insulin] 100 unit/mL solution 15 unit subcut QHS Qty: 10 0RF lidocaine [Aspercreme (lidocaine)] 4 % adhesive patch,medicated 1 patch topical DAILY PRN (Reason: back pain. ) Qty: 30 0RF polyethylene glycol 3350 [Miralax] 17 gram powder in packet 17 g PO DAILY PRN (Reason: constipation) Qty: 30 0RF levothyroxine 75 mcg tablet 75 mcg PO QAM Qty: 30 0RF magnesium oxide 400 mg (241.3 mg magnesium) tablet 400 mg PO DAILY Qty: 30 0RF ferrous sulfate [FeroSul] 325 mg (65 mg iron) tablet 325 mg PO DAILY Qty: 30 0RF docusate sodium 100 mg capsule 100 mg PO BID Qty: 60 0RF omeprazole 20 mg capsule,delayed release(DR/EC) 20 mg PO DAILY Qty: 30 0RF hydroxyzine HCl 25 mg tablet 25 mg PO Q4H PRN (Reason: itching or anxiety.) Qty: 30 0RF albuterol sulfate 90 mcg/actuation HFA aerosol inhaler 2 puff INHALATION Q6H PRN (Reason: shortness of breath or wheezing) Qty: 2 0RF fluticasone propionate [Flonase Allergy Relief] 50 mcg/actuation spray,suspension 1 spray intranasal DAILY PRN (Reason: allergy symptoms/Rhinitis.) Qty: 10 0RF Rx Instructions: administer into each nostril acetaminophen 500 mg capsule 500 mg PO Q6H PRN (Reason: pain (scale score 1-3) or fever.) Qty: 90 0RF escitalopram oxalate 10 mg tablet 10 mg PO DAILY Qty: 30 0RF Jardiance 10 mg tablet 10 mg PO DAILY Qty: 30 0RF sacubitril-valsartan [Entresto] 24-26 mg tablet 0.5 tablet PO BID Qty: 60 0RF Follow-up/Referrals: Zach,Oswaldo Rodriguez MD [Primary Care Provider, Unknown]
[2025-07-21] MEDS: FUROSEMIDE INJ 40 MG/4 ML VIAL IV PUSH (17:47)
[2025-07-21 17:48] VITALS: BP 116/94; PULSE 109; RESP 22; O2SAT 99
[2025-07-21] MEDS: ACETAMINOPHEN 500 MG TABLET 1000 MG PO (18:35)
[2025-07-21] MEDS: METOPROLOL TARTRATE INJ 5 MG/5 ML VIAL IV PUSH (20:10)
[2025-07-21 20:11] VITALS: BP 127/76; PULSE 104; RESP 30; O2SAT 99
[2025-07-21 20:39] LABS: Troponin I 0.022 ng/mL (0.000-0.034)
[2025-07-21 21:00] VITALS: BP 89/53; PULSE 82; RESP 17; TEMP 36.4; O2SAT 97
[2025-07-21 21:51] VITALS: BMI 34.4
[2025-07-21 22:00] VITALS: PULSE 88
--- NOTE | 2025-07-21 22:12 | ADMGEN ---
This patient, Loretta Penn, was admitted to IMU Room 203-01. Patient/family oriented to hospital policies and general routines including ID bracelet, bed and alarms, visiting hours, pain management, procedures, bathroom and other care routines, personal items, smoking policy, room service/diet, and visiting hours. Information on how to activate the Rapid Response Team has been discussed. Patient/Family are encouraged to report perceived risks to care and to ask questions if they do not understand what they are told or what they should do.
[2025-07-22] VITALS (15 sets, daily range): BP systolic 85–102; BP diastolic 42–78; PULSE 88–115; RESP 16–20; TEMP 36.4–36.6; O2SAT 98–99
--- NOTE | 2025-07-22 04:05 | P.HP_ITS ---
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 The patient is uncooperative for nursing staff and at the time of my evaluation. She is getting a rate in yelling at this if we try to examine her. She just states that she wants to be left alone. When I tried to listen to her back she stated that I was hurting her belly. When I went to evaluate her abdomen she does told me not to do that. I was palpating her abdomen it was nice and soft G had fair amount of bowel sounds. She had no localizing tenderness. She also reported discomfort when I was touching her shoulders and back. The patient had called her sisters numerous times throughout the night media relations intern is sisters were controlling her in trying to get her to cooperate. The patient would not allow me to eat and look at her face or head she was covering for head with a blanket. She swung at me whenever I tried to reach for anterior exam. The patient is incontinent of urine and has depends in place. Patient did have a CT of the chest abdomen pelvis with contrast performed in the ER which demonstrated cirrhotic changes of the liver with a small amount of ascites bladder changes concerning for cystitis and moderate pancreatic atrophy post cholecystectomy moderate fecal content without evidence of colitis and findings consistent with CHF. Her UA was not consistent with cystitis. She has not had any fevers and has not had any bowel movements since admission. Patient has not had any vomiting since admission to the hospital. She is eating multiple containers of applesauce and drink a fair amount of fluids. Patient is only had 1 incontinent void since admission after receiving IV Lasix. Majority of information comes from nursing report and ER physician report. Initial review of past medical records. 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 on chronic suppressive antibiotic therapy Chronic hypotension Right-sided heart failure Thrombocytopenia Overactive bladder GERD (gastroesophageal reflux disease) Atrial fibrillation Pacemaker Hypothyroidism Diabetes Surgical History Surgical History AICD (automatic cardioverter/defibrillator) present Family History Family History Mother Diabetes mellitus Epilepsy CAD (coronary artery disease) Stented coronary artery Dementia COVID Father Diabetes mellitus Sibling Hypertension Sibling Murder of sister Sibling Unknown family medical history Social History Social History (Updated 07/22/25 @ 07:53 by Montserrat Pope DO) Social History: The patient lives in her own residence. Her sisters come by 3 times a day. Her sisters go home at night while the patient is in bed to sleep. Code status: Full code Years smoked: 3 Smoking status: Former smoker Alcohol intake: never Substance use: never Substance use type: does not use Do You Feel Safe in your Home?: Yes Lack of Transportation: No Lack of Food: Never True Current Housing: I Have Housing Concerned About Future Housing: No Difficulty Paying Gas/Electric Bills: No Difficulty Paying for Meds: No Currently Unemployed: No Education: Grade School Difficulty w/ Childcare or Family Care: No Gender identity (if verbalized by the patient): Female Spiritual care concerns: No Meds Home Medications and Allergies Home Medications ?Medication ?Instructions ?Recorded ?Confirmed ?Type cholecalciferol (vitamin D3) 125 5,000 unit PO DAILY 0 02/23/25 07/21/25 History mcg (5,000 unit) tablet acetaminophen 500 mg capsule 500 mg PO Q6H PRN pain (s [place] 03/14/25 07/21/25 Rx score 1-3) or fever. #90 caps albuterol sulfate 90 mcg/actuation 2 puff inhalation Q 6H PRN 03/14/25 07/21/25 Rx aerosol inhaler shortness of breath or wheez ing #2 grams docusate sodium 100 mg capsule 100 mg PO BID #60 caps 03/14/25 07/21/25 Rx empagliflozin 10 mg tablet 10 mg PO DAILY #30 tabs 03/0307/21/25 Rx (Jardiance) escitalopram oxalate 10 mg tablet 10 mg PO DAILY #30 t abs 03/14/25 07/21/25 Rx ferrous sulfate 325 mg (65 mg 325 mg PO DAILY #30 tabs 03/14/25 07/21/25 Rx iron) tablet (FeroSul) fluticasone propionate 50 1 spray intranasal DAILY PRN 03/14/25 07/21/25 Rx mcg/actuation nasal allergy symptoms/Rhinitis. # 10 mL spray,suspension (Flonase Allergy Relief) hydroxyzine HCl 25 mg tablet 25 mg PO Q4H PRN itching or 03/14/25 07/21/25 Rx anxiety. #30 tabs insulin glargine 100 unit/mL 15 unit (0.15 mL) subcut QHS #10 mL 03/14/25 07/21/25 Rx subcutaneous solution (Lantus U-100 Insulin) levothyroxine 75 mcg tablet 75 mcg PO QAM #30 tabs 03/0307/21/25 Rx lidocaine 4 % topical patch 1 patch topical DAILY PRN back 03/14/25 07/21/25 Rx (Aspercreme (lidocaine)) pain. #30 ea magnesium oxide 400 mg (241.3 mg 400 mg PO DAILY #30 t abs 03/14/25 07/21/25 Rx magnesium) tablet nortriptyline 10 mg capsule 10 mg PO HS #30 caps 03/1407/21/25 Rx omeprazole 20 mg capsule,delayed 20 mg PO DAILY #30 ca ps 03/14/25 07/21/25 Rx release polyethylene glycol 3350 17 gram 17 g PO DAILY PRN con stipation #30 03/14/25 07/21/25 Rx oral powder packet (Miralax) ea sacubitril 24 mg-valsartan 26 mg 0.5 tablet PO BID #60 tabs 03/14/25 07/21/25 Rx tablet (Entresto) apixaban 5 mg tablet (Eliquis) 5 mg PO BID 06/08/25 History ascorbic acid (vitamin C) 500 mg 500 mg PO DAILY 06/0807/21/25 History tablet (Vitamin C) buspirone 10 mg tablet 10 mg PO BID 06/08/25 History insulin aspart U-100 100 unit/mL 15 unit subcut TID 07/21/25 History (3 mL) subcutaneous pen vibegron 75 mg tablet (Gemtesa) 75 mg PO DAILY 5 07/21/25 History cefadroxil 500 mg capsule 1,000 mg PO Q12H 06/10/25 History cyanocobalamin (vitamin B-12) 500 500 mcg PO DAILY 11/0307/21/25 History mcg tablet (B-12 DOTS) metoprolol succinate 25 mg 25 mg PO DAILY 07/21/2510/03 History tablet,extended release 24 hr spironolactone 25 mg tablet 12.5 mg PO DAILY 07/21/25 07/21/25 History Allergies Allergy/AdvReac Type Severity Reaction Status Date / Time Sulfa (Sulfonamide Allergy Mild RASH Verified 07/21/25 14:44 Antibiotics) certain metals Allergy Unknown Unknown Uncoded 03/05/25 23:36 Vital Signs Vital Signs - 24 hr 07/21/25 14:49 07/21/25 17:48 07/21/25 20:11 Temperature 97.6 F Pulse Rate 121 H 109 H 104 H Respiratory Rate 20 22 H 30 H Blood Pressure 119/69 116/94 H 127/76 Pulse Oximetry 100 99 99 Oxygen Delivery Room Air 07/21/25 21:00 07/21/25 22:00 07/22/25 00:00 Temperature 97.5 F L 97.5 F L Pulse Rate 82 88 93 Respiratory Rate 17 16 Blood Pressure 89/53 L 101/71 Pulse Oximetry 97 99 Oxygen Delivery 07/22/25 00:00 07/22/25 02:00 07/22/25 04:00 Temperature 97.9 F Pulse Rate 88 91 88 Respiratory Rate 16 Blood Pressure 85/42 L Pulse Oximetry 98 Oxygen Delivery Exam 2 Narrative: Weight 104 kg BMI 34.9 H&P: Results Labs Labs: Laboratory Tests 07/21/25 16:00 07/21/25 16:00 07/21/25 07/21/25 07/21/25 15:54 16:00 16:01 WBC 4.1 L RBC 3.66 L Hgb 12.3 Hct 37.3 MCV 101.9 H MCH 33.6 MCHC 33.0 RDW 16.5 H Plt Count 268 MPV 8.9 Immature Gran % (Auto) 0.5 Neut % (Auto) 68.4 Lymph % (Auto) 16.6 L [place] % (Auto) 11.5 H Eos % (Auto) 2.0 Baso % (Auto) 1.0 Lymph # (Auto) 0.68 L [place] # (Auto) 0.5 Eos # (Auto) 0.1 Baso # (Auto) 0.0 Abs Immat Gran (auto) 0.02 Absolute Neuts (auto) 2.8 Absolute Nucleated RBC 0.000 Nucleated RBC % 0.0 PT 25.5 H INR 2.4 APTT 44.3 H Sodium 122 L Potassium 5.4 H Chloride 94 L Carbon Dioxide 19 L Anion Gap 9 BUN 27 H D Creatinine 0.99 Estim Creat Clear Calc 63 Estimated GFR 57 L Glucose 150 H POC Capillary Glucose 162 H Lactic Acid 1.9 Calcium 9.3 Magnesium 2.2 Total Bilirubin 3.7 H AST 73 H ALT 32 Alkaline Phosphatase 416 H Troponin I 0.020 NT-Pro-B Natriuret Pep 05157 H Cancelled Total Protein 7.5 Albumin 3.7 Lipase 33 TSH (Reflex) 4.550 Free T4 2.81 H Urine Color Urine Appearance Urine pH Ur Specific [place] Urine Protein Urine Glucose (UA) Urine Ketones Ur Blood (Man) Urine Nitrate Urine Bilirubin Urine Urobilinogen Add Ur Microanalysis Leukocyte Esterase Rfl Urine RBC Urine WBC Ur Squamous Epith Cells Urine Bacteria Urine Casts Influenza A (RT-PCR) Negative Influenza B (RT-PCR) Negative RSV (RT-PCR) Negative SARS-CoV-2 RNA (RT-PCR) Negative 07/21/25 07/21/25 07/21/25 16:18 20:08 20:49 WBC RBC Hgb Hct MCV MCH MCHC RDW Plt Count MPV Immature Gran % (Auto) Neut % (Auto) Lymph % (Auto) [place] % (Auto) Eos % (Auto) Baso % (Auto) Lymph # (Auto) [place] # (Auto) Eos # (Auto) Baso # (Auto) Abs Immat Gran (auto) Absolute Neuts (auto) Absolute Nucleated RBC Nucleated RBC % PT INR APTT Sodium Potassium Chloride Carbon Dioxide Anion Gap BUN Creatinine Estim Creat Clear Calc Estimated GFR Glucose POC Capillary Glucose 100 Lactic Acid Calcium Magnesium Total Bilirubin AST ALT Alkaline Phosphatase Troponin I 0.022 NT-Pro-B Natriuret Pep Total Protein Albumin Lipase TSH (Reflex) Free T4 Urine Color Dark yellow Urine Appearance Cloudy H Urine pH 5.0 Ur Specific [place] 1.022 Urine Protein 1+ H Urine Glucose (UA) 3+ H Urine Ketones Negative Ur Blood (Man) Negative Urine Nitrate Negative Urine Bilirubin Negative Urine Urobilinogen 1.0 Add Ur Microanalysis Reviewed Leukocyte Esterase Rfl Trace H Urine RBC 6-10 H Urine WBC 0-5 Ur Squamous Epith Cells None seen Urine Bacteria None seen Urine Casts 11-20 Influenza A (RT-PCR) Influenza B (RT-PCR) RSV (RT-PCR) SARS-CoV-2 RNA (RT-PCR) 07/21/25 07/22/25 23:06 01:11 WBC RBC Hgb Hct MCV MCH MCHC RDW Plt Count MPV Immature Gran % (Auto) Neut % (Auto) Lymph % (Auto) [place] % (Auto) Eos % (Auto) Baso % (Auto) Lymph # (Auto) [place] # (Auto) Eos # (Auto) Baso # (Auto) Abs Immat Gran (auto) Absolute Neuts (auto) Absolute Nucleated RBC Nucleated RBC % PT INR APTT Sodium Potassium Chloride Carbon Dioxide Anion Gap BUN Creatinine Estim Creat Clear Calc Estimated GFR Glucose POC Capillary Glucose 86 139 H Lactic Acid Calcium Magnesium Total Bilirubin AST ALT Alkaline Phosphatase Troponin I NT-Pro-B Natriuret Pep Total Protein Albumin Lipase TSH (Reflex) Free T4 Urine Color Urine Appearance Urine pH Ur Specific [place] Urine Protein Urine Glucose (UA) Urine Ketones Ur Blood (Man) Urine Nitrate Urine Bilirubin Urine Urobilinogen Add Ur Microanalysis Leukocyte Esterase Rfl Urine RBC Urine WBC Ur Squamous Epith Cells Urine Bacteria Urine Casts Influenza A (RT-PCR) Influenza B (RT-PCR) RSV (RT-PCR) SARS-CoV-2 RNA (RT-PCR) Impressions Chest X-Ray 07/21/25 16:18 Impression: CHF. Left lung nodule. CT chest with contrast recommended Chest/Abdomen/Pelvis CT 07/21/25 17:48 IMPRESSION: 1. Probable CHF. 2. Cirrhotic disease of the liver with small amount of probable ascites. 3. Probable cystitis. Assessment and Plan Assessment and plan (1) CHF exacerbation: Qualifiers: Heart failure type: combined systolic and diastolic Qualified Code(s): I50.43 - Acute on chronic combined systolic (congestive) and diastolic (congestive) heart failure Code(s): I50.9 - Heart failure, unspecified Status: Acute (2) Pulmonary hypertension: Code(s): I27.20 - Pulmonary hypertension, unspecified Status: Acute (3) Nonischemic cardiomyopathy: Code(s): I42.8 - Other cardiomyopathies Status: Acute (4) CHF due to valvular disease: Code(s): I50.9 - Heart failure, unspecified; I38 - Endocarditis, valve unspecified Status: Acute (5) Chronic hypotension: Code(s): I95.89 - Other hypotension Status: Acute (6) Hyponatremia: Code(s): E87.1 - Hypo-osmolality and hyponatremia Status: Acute (7) Type 2 diabetes mellitus with hyperglycemia: Qualifiers: Diabetes mellitus technician terminal and repeater insulin use: with technician terminal and repeater use Qualified Code(s): E11.65 - Type 2 diabetes mellitus with hyperglycemia; Z79.4 - [facility] (current) use of insulin Code(s): E11.65 - Type 2 diabetes mellitus with hyperglycemia Status: Acute (8) Atrial fibrillation: Qualifiers: Atrial fibrillation type: permanent Qualified Code(s): I48.21 - Permanent atrial fibrillation Code(s): I48.91 - Unspecified atrial fibrillation Status: Chronic (9) Acute kidney injury: Code(s): N17.9 - Acute kidney failure, unspecified Status: Acute Plan The patient reports abdominal pain but her abdominal exam is benign. CT does not demonstrate any overt large stool burden only moderate stool and chronic cirrhotic changes. She does the history of hepatic steatosis noted on prior imaging. Patient may be having some component of gastritis given her report of vomiting. Will place patient on Pepcid in addition to her home PPI. Will continue home bowel regimen. I would start the patient on Carafate but I do not think that she will tolerate or participate in taking this. Patient does have chronic hyperbilirubinemia which is stable compared to baseline she is already a prior cholecystectomy. She also has chronic elevated AST with history of hepatic steatosis and passive congestion of the liver in the past. On her ALT is just above cutoff for normal in slightly elevated from her baseline but not remarkably so. Imaging suggest possible CHF exacerbation. Patient does have some exam findings suggesting anasarca does have some mild amount of ascites. Has a history of prior passive congestion the liver which may be contributing to the ascites. Patient was started on diuretic therapy. Patient did have some mild hyperkalemia this is unclear if it could possibly be due to hypo perfusion with decreased kidney function due to hypovolemia versus hypoperfusion due to heart failure. Given hyperkalemia will stop spironolactone. Will give a trial of IV diuretic therapy if. If no improvement in potassium and renal function we may need to actually give the patient some IV fluids instead. Will check urine electrolytes. Given the hyperkalemia will also hold the patient's Entresto. Will hold Jardiance due to acute kidney injury. Patient has hyponatremia again is unclear if she has hypovolemic or hypervolemic hyponatremia. Patient will not allow me to examine her mucous membranes and keeps her back turned towards me. Unfortunately me in my will check a not fit on the other side of the bed to try to attempt oral exam. Will check urine electrolytes and make further determination after that. The patient is on chronic antibiotic therapy due to history prior MSSA endocarditis she has been on continuous antibiotic therapy since May of 2024 for this will be continued. Patient has chronic atrial fibrillation. Her heart rate was initially mildly elevated on presentation to the ER but resolved with only 1 dose of IV Lopressor. The she has not had a recurrence of rapid ventricular response. Will resume patient on Eliquis. Will continue beta-danny. Entresto and spironolactone is on hold due to hyperkalemia. MEDICAL DECISION MAKING NARRATIVE -Spoke with the ED provider in detail regarding patient's evaluation, workup and management -Patient seen and examined at bedside -Collaborated with patient's nurse at the bedside in detail and addressed all concerns -Labs, electrolytes, radiology, investigations and test results personally reviewed and interpreted unless otherwise specified -ED/Consult/Nursing/Ancilliary notes on the chart reviewed and appreciated -Spoke with patient at bedside and try did discuss symptoms and diagnosis but the patient was uncooperative. Quality VTE Prophylaxis VTE prophylaxis: pharmacologic ordered (Continue home Eliquis.) Hospitalist MIPS Advance Care Plan I have confirmed that the patient's Advanced Care Plan is present, code status is documented, or surrogate decision maker is listed in patient medical record.: Yes Medication Reconciliation I have utilized all available resources to obtain, update and review the patients current medications (includes all prescriptions, OTC, herbals, cannabis, and nutritional supplements).: Yes
[2025-07-22] MEDS: CEPHALEXIN 500 MG CAPSULE 1000 MG PO ×2 (06:23→16:36)
[2025-07-22] MEDS: LEVOTHYROXINE SODIUM 75 MCG TABLET PO (06:23)
[2025-07-22 07:07] LABS: Hematocrit 36.9 % (37.0-47.0); Hemoglobin 12.3 g/dL (12.0-15.0); Immature Granulocyte Percent A 0.6 % (0-0.5); Lymphocytes Absolute Auto 0.84 K/mm3 (0.9-3.2); Mean Corpuscular HGB Conc 33.3 g/dl (32-36); Mean Corpuscular Hemoglobin 33.9 pg (26-34); Mean Corpuscular Volume 101.7 fl (80-100); Nucleated Red Blood Cells Absolute Auto 0.020 K/mm3 (0.0-0.012); Nucleated Red Blood Cells Perc 0.4 % (0.0-0.2); Platelet Count Result 271 k/mm3 (150-375); Red Blood Count 3.63 M/mm3 (4.2-5.4); White Blood Count 4.7 K/mm3 (4.5-10.0)
[2025-07-22 07:39] LABS: Alanine Aminotransferase 41 U/L (6-35); Albumin Level 3.6 g/dL (3.5-5.1); Alkaline Phosphatase 425 U/L (38-126); Anion Gap 13 mmol/L (4-12); Aspartate Amino Transferase 82 U/L (14-36); Bilirubin,Total 3.6 mg/dL (0.2-1.3); Blood Urea Nitrogen 27 mg/dL (7-17); Calcium 9.0 mg/dL (8.4-10.2); Carbon Dioxide 16 mmol/L (22-30); Chloride 94 mmol/L (98-107); Estimated CRCL calculation 58 ml/min; Estimated Glomerular Filt Rate 50; Glucose 91 mg/dL (65-110); Potassium 5.2 mmol/L (3.4-5.0); Sodium 123 mmol/L (137-145); Total Protein 7.6 g/dL (6.3-8.2)
--- NOTE | 2025-07-22 08:54 | PM.CNCAR ---
Assessment and Plan Assessment and plan (1) Atrial fibrillation: Qualifiers: Atrial fibrillation type: permanent Qualified Code(s): I48.21 - Permanent atrial fibrillation Code(s): I48.91 - Unspecified atrial fibrillation Status: Chronic Assessment and Plan: Heart rate controlled. Continue metoprolol with holding parameters. Continue apixaban 5mg q12h. (2) Acute exacerbation of CHF (congestive heart failure): Code(s): I50.9 - Heart failure, unspecified Status: Acute Assessment and Plan: Perhaps mild CHF exacerbation which appears to have improved with IV Bumex as she has no swelling and is breathing comfortably on room air. Lungs are clear. Will shift her back to p.o. bumex. Continue with daily weights, strict intaky & output. (3) Nonischemic cardiomyopathy: Code(s): I42.8 - Other cardiomyopathies Status: Acute Assessment and Plan: EF 40-45%. Continue GDMT with Entresto, spironolactone, jardiance, ToprolXL as renal function, electrolytes, and BP allow. History of Present Illness History of Present Illness Consult date/time: 07/22/25 08:54 Requesting physician: Reno Perez Oca, MD Consult reason: atrial fibrillation and congestive heart failure Reason For Visit: CHF Narrative: Loretta Penn is a 64 year old female with cardiomyopathy (EF 40-45%), paroxysmal atrial fibrillation, and endocarditis on chronic antibiotic therapy. She presents to the hospital with complaints of nausea, vomiting, constipation, and weight gain. Cardiology is consulted for CHF and atrial fibrillation with rapid ventricular response. Patient is not particularly cooperative and doesn't answer many questions. She does not know why she is in the hospital. She denies having any chest pain, shortness of breath, or palpitations. 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 Her sisters come by 3 times a day. Her sisters go home at night while the patient is in bed to sleep. Code status: Full code Years smoked: 3 Smoking status: Former smoker Alcohol intake: never Substance use: never Substance use type: does not use Do You Feel Safe in your Home?: Yes Lack of Transportation: No Lack of Food: Never True Current Housing: I Have Housing Concerned About Future Housing: No Difficulty Paying Gas/Electric Bills: No Difficulty Paying for Meds: No Currently Unemployed: No Education: Grade School Difficulty w/ Childcare or Family Care: No Gender identity (if verbalized by the patient): Female Spiritual care concerns: No Meds Home Medications and Allergies Home Medications ?Medication ?Instructions ?Recorded ?Confirmed ?Type cholecalciferol (vitamin D3) 125 5,000 unit PO DAILY 02/23/25 07/21/25 History mcg (5,000 unit) tablet acetaminophen 500 mg capsule 500 mg PO Q6H PRN pain (scale 03/14/25 07/21/25 Rx score 1-3) or fever. #90 caps albuterol sulfate 90 mcg/actuation 2 puff inhalation Q6H PRN 03/14/25 07/21/25 Rx aerosol inhaler shortness of breath or wheezing #2 grams docusate sodium 100 mg capsule 100 mg PO BID #60 caps 03/14/25 07/21/25 Rx empagliflozin 10 mg tablet 10 mg PO DAILY #30 tabs 03/14/25 07/21/25 Rx (Jardiance) escitalopram oxalate 10 mg tablet 10 mg PO DAILY #30 tabs 03/14/25 07/21/25 Rx ferrous sulfate 325 mg (65 mg 325 mg PO DAILY #30 tabs 03/14/25 07/21/25 Rx iron) tablet (FeroSul) fluticasone propionate 50 1 spray intranasal DAILY PRN 03/14/25 07/21/25 Rx mcg/actuation nasal allergy symptoms/Rhinitis. #10 mL spray,suspension (Flonase Allergy Relief) hydroxyzine HCl 25 mg tablet 25 mg PO Q4H PRN itching or 03/14/25 07/21/25 Rx anxiety. #30 tabs insulin glargine 100 unit/mL 15 unit (0.15 mL) subcut QHS #10 mL 03/14/25 07/21/25 Rx subcutaneous solution (Lantus U-100 Insulin) levothyroxine 75 mcg tablet 75 mcg PO QAM #30 tabs 03/14/25 07/21/25 Rx lidocaine 4 % topical patch 1 patch topical DAILY PRN back 03/14/25 07/21/25 Rx (Aspercreme (lidocaine)) pain. #30 ea magnesium oxide 400 mg (241.3 mg 400 mg PO DAILY #30 tabs 03/14/25 07/21/25 Rx magnesium) tablet nortriptyline 10 mg capsule 10 mg PO HS #30 caps 03/14/25 07/21/25 Rx omeprazole 20 mg capsule,delayed 20 mg PO DAILY #30 caps 03/14/25 07/21/25 Rx release polyethylene glycol 3350 17 gram 17 g PO DAILY PRN constipation #30 03/14/25 07/21/25 Rx oral powder packet (Miralax) ea sacubitril 24 mg-valsartan 26 mg 0.5 tablet PO BID #60 tabs 03/14/25 07/21/25 Rx tablet (Entresto) apixaban 5 mg tablet (Eliquis) 5 mg PO BID 06/08/25 07/21/25 History ascorbic acid (vitamin C) 500 mg 500 mg PO DAILY 06/08/25 07/21/25 History tablet (Vitamin C) buspirone 10 mg tablet 10 mg PO BID 06/08/25 07/21/25 History insulin aspart U-100 100 unit/mL 15 unit subcut TID 06/08/25 07/21/25 History (3 mL) subcutaneous pen vibegron 75 mg tablet (Gemtesa) 75 mg PO DAILY 06/08/25 07/21/25 History cefadroxil 500 mg capsule 1,000 mg PO Q12H 06/10/25 07/21/25 History cyanocobalamin (vitamin B-12) 500 500 mcg PO DAILY 06/10/25 07/21/25 History mcg tablet (B-12 DOTS) metoprolol succinate 25 mg 25 mg PO DAILY 07/21/25 07/21/25 History tablet,extended release 24 hr spironolactone 25 mg tablet 12.5 mg PO DAILY 07/21/25 07/21/25 History Allergies Allergy/AdvReac Type Severity Reaction Status Date / Time Sulfa (Sulfonamide Allergy Mild RASH Verified 07/21/25 14:44 Antibiotics) certain metals Allergy Unknown Unknown Uncoded 03/05/25 23:36 Vital Signs Vital Signs - 24 hr 07/21/25 14:49 07/21/25 17:48 07/21/25 20:11 Temperature 36.4 C Pulse Rate 121 H 109 H 104 H Respiratory Rate 20 22 H 30 H Blood Pressure 119/69 116/94 H 127/76 Pulse Oximetry 100 99 99 Oxygen Delivery Room Air 07/21/25 21:00 07/21/25 22:00 07/22/25 00:00 Temperature 36.4 C L 36.4 C L Pulse Rate 82 88 93 Respiratory Rate 17 16 Blood Pressure 89/53 L 101/71 Pulse Oximetry 97 99 Oxygen Delivery 07/22/25 00:00 07/22/25 02:00 07/22/25 04:00 Temperature 36.6 C Pulse Rate 88 91 88 Respiratory Rate 16 Blood Pressure 85/42 L Pulse Oximetry 98 Oxygen Delivery 07/22/25 04:00 07/22/25 06:01 07/22/25 06:57 Temperature Pulse Rate 92 97 Respiratory Rate Blood Pressure 100/50 L Pulse Oximetry Oxygen Delivery Exam Const: General: comfortable, no acute distress, alert and awake Other: alert and oriented X 2 HENMT: Head: normal to inspection Eyes: General: appearance normal, both eyes and all related structures Pupils: Equal, round and reactive pupils present Neck: Neck: normal visual inspection and supple Carotids: normal carotid upstroke Resp: Effort & Inspection: normal respiratory effort Auscultation: clear to auscultation bilaterally Cardio: Rate: regular rate Rhythm: regular rhythm Heart sounds: S1 normal heart sound present, S2 normal heart sound present and no murmurs GI: Auscultation: normal bowel sounds Skin: General skin exam: normal color Lesions: lesion noted Neuro: General: No patient oriented x3 Cranial nerves: Yes Equal, round and reactive pupils present Extrem: General: normal to inspection Other: no edema Psych: Mental Status: mental status grossly abnormal Results Labs and Meds 07/22/25 06:47 07/22/25 06:47 Lab results: Cardiac Enzymes 07/21/25 07/21/25 07/22/25 Range/Units 16:00 20:08 06:47 AST 73 H 82 H (14-36) U/L Troponin I 0.020 0.022 (0.000-0.034) ng/mL Coagulation 07/21/25 Range/Units 16:01 PT 25.5 H (11.1-14.7) Seconds APTT 44.3 H (22.3-36.8) Seconds CBC 07/21/25 07/22/25 Range/Units 16:00 06:47 WBC 4.1 L 4.7 (4.5-10.0) K/mm3 RBC 3.66 L 3.63 L (4.2-5.4) M/mm3 Hgb 12.3 12.3 (12.0-15.0) g/dL Hct 37.3 36.9 L (37.0-47.0) % Plt Count 268 271 (150-375) k/mm3 Lymph # (Auto) 0.68 L 0.84 L (0.9-3.2) K/mm3 [place] # (Auto) 0.5 0.7 H (0.1-0.6) K/mm3 Eos # (Auto) 0.1 0.2 (0-0.3) K/mm3 Baso # (Auto) 0.0 0.1 (0.0-0.1) K/mm3 Comprehensive Metabolic Panel 07/21/25 07/22/25 Range/Units 16:00 06:47 Sodium 122 L 123 L (137-145) mmol/L Potassium 5.4 H 5.2 H (3.4-5.0) mmol/L Chloride 94 L 94 L (98-107) mmol/L Carbon Dioxide 19 L 16 L (22-30) mmol/L BUN 27 H D 27 H (7-17) mg/dL Creatinine 0.99 1.11 H (0.7-1.0) mg/dL Glucose 150 H 91 (65-110) mg/dL Calcium 9.3 9.0 (8.4-10.2) mg/dL AST 73 H 82 H (14-36) U/L ALT 32 41 H (6-35) U/L Alkaline Phosphatase 416 H 425 H (38-126) U/L Total Protein 7.5 7.6 (6.3-8.2) g/dL Albumin 3.7 3.6 (3.5-5.1) g/dL Intake and Output 07/21/25 07/22/25 07/22/25 23:59 07:59 15:59 Intake Total 700 Balance 700 Intake: Oral 700 Other: # Unmeasured Voids 1 # Urine Diapers 1 Patient Weight 07/22/25 23:59 Weight 104 kg
[2025-07-22] MEDS: PANTOPRAZOLE 40 MG TABLET PO (09:55)
[2025-07-22] MEDS: ESCITALOPRAM OXALATE 10 MG TABLET PO (09:55)
[2025-07-22] MEDS: FERROUS SULFATE 325 MG TABLET PO (09:56)
[2025-07-22] MEDS: MAGNESIUM OXIDE 400 MG TABLET PO (09:56)
[2025-07-22] MEDS: CYANOCOBALAMIN 500 MCG TABLET PO (09:56)
[2025-07-22] MEDS: CHOLECALCIFEROL (VITAMIN D3) 125 MCG (5,000 UNITS) TABLET PO (09:56)
[2025-07-22] MEDS: APIXABAN 5 MG TABLET PO ×2 (09:56→20:45)
[2025-07-22] MEDS: FAMOTIDINE 20 MG/2 ML VIAL IV PUSH ×2 (09:57→23:16)
[2025-07-22] MEDS: DOCUSATE SODIUM 100 MG CAPSULE PO ×2 (09:57→16:36)
--- NOTE | 2025-07-22 10:14 | PC.NURSE ---
pt refused morning vital signs for the pct. This rn went in to attempt to get vital signs and blood sugar. Patient was very uncooperative and continued to refuse. Vital signs taken and recorded. After multiple minutes of talking with patient was able to get a blood sugar but patient was very upset and uncooperative during the process. Pt refused morning medications. This RN made multiple attempts for patient to take medications which patient eventually did but was still uncooperative and refusing. UPdated MD on patient refusal and behavior.
--- NOTE | 2025-07-22 11:55 | PC.NURSE ---
pt did not want to take her morning pills stating that she hates taking pills repeatedly. Afternoon sucralfate crushed in applesauce to avoid swallowing pills due to patients dislike of pills. Pt refused to take medication crushed in applesauce.
--- NOTE | 2025-07-22 14:47 | P.PNIM_ITS ---
Progress Note: A&P Assessment and Plan (1) CHF exacerbation: Qualifiers: Heart failure type: combined systolic and diastolic Qualified Code(s): I50.43 - Acute on chronic combined systolic (congestive) and diastolic (congestive) heart failure Code(s): I50.9 - Heart failure, unspecified Status: Acute Assessment and Plan: Treated with IV Bumex in the ED, with significant improvement in clinical status. Seen by Cardiology who recommends for restoring to oral dosing at this time as well as holding guideline directed medical therapy as she is borderline hypotensive at this time, to be resumed with improvement of blood pressure. Metoprolol needs the tachycardia as patient has atrial fibrillation if blood pressure allows. 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 Unclear if acute or chronic however patient has baseline intellectual disability which may affect her ability to ascertain neurological change. Patient may need 3% saline bolus if sodium is not self resolving after diuresis (7) Type 2 diabetes mellitus with hyperglycemia: Qualifiers: Diabetes mellitus mcfp insulin use: with mcfp use Qualified Code(s): E11.65 - Type 2 diabetes mellitus with hyperglycemia; Z79.4 - jail (current) use of insulin Code(s): E11.65 - Type 2 diabetes mellitus with hyperglycemia Status: Acute Assessment and Plan: Spoke with patient's sisters who did mention patient gets more irritable when her blood sugar is below 130. Will maintain random blood sugar above 130 given this information Insulin sliding scale at this time (8) Atrial fibrillation: Qualifiers: Atrial fibrillation type: permanent Qualified Code(s): I48.21 - Permanent atrial fibrillation Code(s): I48.91 - Unspecified atrial fibrillation Status: Chronic Assessment and Plan: History of atrial fibrillation on anticoagulation and metoprolol Continue anticoagulation, metoprolol to be used p.r.n. elevations in heart rate (9) Acute kidney injury: Code(s): N17.9 - Acute kidney failure, unspecified Status: Acute Assessment and Plan: Creatinine mildly elevated to 1.1 from 0.99 yesterday, prior baseline was 0.71 in July 04. Could be secondary to hypotension or CHF exacerbation proper, or use of IV Bumex Will trend renal function at this time Bumex transitioned to oral for now (10) Anxiety: Code(s): F41.9 - Anxiety disorder, unspecified Status: Acute Assessment and Plan: The patient's sister's report that she becomes very irritable when she is not on her buspirone which is a home medication. Buspirone has been started b.i.d. Subjective Date/time seen: 07/22/25 14:47 Review of Systems Review of Systems: Unobtainable due to patient's intellectual disability Objective Data Vital Signs Vital Signs: Vital Signs - 24 hr 07/21/25 14:49 07/21/25 17:48 07/21/25 20:11 Temperature 97.6 F Pulse Rate 121 H 109 H 104 H Respiratory Rate 20 22 H 30 H Blood Pressure 119/69 116/94 H 127/76 Pulse Oximetry 100 99 99 Oxygen Delivery Room Air 07/21/25 21:00 07/21/25 22:00 07/22/25 00:00 Temperature 97.5 F L 97.5 F L Pulse Rate 82 88 93 Respiratory Rate 17 16 Blood Pressure 89/53 L 101/71 Pulse Oximetry 97 99 Oxygen Delivery 07/22/25 00:00 07/22/25 02:00 07/22/25 04:00 Temperature 97.9 F Pulse Rate 88 91 88 Respiratory Rate 16 Blood Pressure 85/42 L Pulse Oximetry 98 Oxygen Delivery 07/22/25 04:00 07/22/25 06:01 07/22/25 06:57 Temperature Pulse Rate 92 97 Respiratory Rate Blood Pressure 100/50 L Pulse Oximetry Oxygen Delivery 07/22/25 08:00 07/22/25 08:00 07/22/25 09:46 Temperature Pulse Rate 98 95 Respiratory Rate Blood Pressure 95/48 L Pulse Oximetry 98 Oxygen Delivery Room Air 07/22/25 11:44 07/22/25 11:49 07/22/25 12:00 Temperature Pulse Rate 103 H 102 H Respiratory Rate Blood Pressure 100/62 Pulse Oximetry Oxygen Delivery Room Air 07/22/25 13:57 Temperature Pulse Rate 109 H Respiratory Rate Blood Pressure Pulse Oximetry Oxygen Delivery Intake/Output Intake/Output: Intake & Output 07/19/25 07/20/25 07/21/25 07/22/25 23:59 23:59 23:59 23:59 Intake Total 940 Balance 940 Meds/Results Medications: Active Medications Generic Name Dose Route Start Last Admin Trade Name Freq PRN Reason Stop Dose Admin Acetaminophen 650 mg 07/22/25 00:30 Acetaminophen 325 Mg Tablet PO Q6H PRN Mild Pain (1-3) or Fever Albuterol 2 puff 07/22/25 03:53 Albuterol Sulfate (*Sp) Aerosol 1 Puff INHALATION Q6H PRN Shortness Of Breath Or Wheezing Apixaban 5 mg 07/22/25 09:00 07/22/25 09:56 Apixaban 5 Mg Tablet PO 5 mg Q12HR GALINA Administration Bumetanide 1 mg 07/23/25 09:00 Bumetanide 1 Mg Tablet PO DAILY GALINA Buspirone HCl 10 mg 07/22/25 09:00 07/22/25 09:56 Buspirone Hcl 10 Mg Tablet PO 10 mg Q12HR GALINA Administration Cephalexin HCl 1,000 mg 07/22/25 04:25 07/22/25 06:23 Cephalexin 500 Mg Capsule PO 1,000 mg Q12H G[facility]INA Administration Cyanocobalamin 500 mcg 07/22/25 09:00 07/22/25 09:56 Cyanocobalamin 500 Mcg Tablet PO 500 mcg DAILY [facility] Administration Dextrose 12.5 gm 07/21/25 22:56 Dextrose 50% 25 Gm/50 Ml Syringe IV PUSH PRN PRN Hypoglycemia Protocol Docusate Sodium 100 mg 07/22/25 09:00 07/22/25 09:57 Docusate Sodium 100 Mg Capsule PO 100 mg BID GALINA Administration Empagliflozin 10 mg 07/22/25 09:00 Empagliflozin 10 Mg Tablet PO On Hold: 07/22/25 09:00 DAILY [facility] Escitalopram Oxalate 10 mg 07/22/25 09:00 07/22/25 09:55 Escitalopram Oxalate 10 Mg Tablet PO 10 mg DAILY G[facility] Administration Famotidine 20 mg 07/22/25 09:00 07/22/25 09:57 Famotidine 20 Mg/2 Ml Vial IV PUSH 20 mg Q12HR GALINA Administration Ferrous Sulfate 325 mg 07/22/25 09:00 07/22/25 09:56 Ferrous Sulfate 325 Mg Tablet PO 325 mg DAILY [facility] Administration Fluticasone Propionate 1 spray 07/22/25 03:53 Fluticasone Propionate 0.05% Na Spr 16 Gm Btl (*Bkc) NASAL DAILY PRN allergy symptoms/Rhinitis. Glucagon 1 mg 07/21/25 22:56 Glucagon For Inj 1 Mg Vial IM PRN PRN Hypoglycemia Protocol Glucose 15 gm 07/21/25 22:56 Glucose Oral Gel 15 Gm Of Glucse In 37.5 Gm Tube PO PRN PRN Hypoglycemia Protocol Hydroxyzine HCl 25 mg 07/22/25 03:53 Hydroxyzine Hcl 25 Mg Tablet PO Q4H PRN itching or anxiety. Dextrose 1,000 mls @ 100 mls/hr 07/21/25 22:56 Dextrose 5% 1,000 Ml IVPB PRN PRN Hypoglycemia Protocol Insulin Aspart 3 - 6 units 07/22/25 08:00 07/22/25 11:26 Insulin Aspart (*Bkc) 100 Units/Ml SUB-Q Not Given TIDWM [facility] Protocol Insulin Aspart 10 units 07/22/25 08:00 07/22/25 11:26 Insulin Aspart (*Bkc) 100 Units/Ml SUB-Q Not Given TIDWM [facility] Insulin Glargine 10 units 07/22/25 21:00 Insulin Glargine (*Bkc) 100 Units/Ml SUB-Q QHS [facility] Levothyroxine Sodium 75 mcg 07/22/25 06:30 07/22/25 06:23 Levothyroxine Sodium 75 Mcg Tablet PO 75 mcg DAILY@0630 [facility] Administration Lidocaine 1 patch 07/22/25 04:21 Lidocaine 5% Patch TRANSDERM DAILY PRN back pain. Magnesium Oxide 400 mg 07/22/25 09:00 07/22/25 09:56 Magnesium Oxide 400 Mg Tablet PO 400 mg DAILY [facility] Administration Metoprolol Succinate 25 mg 07/22/25 09:00 07/22/25 09:49 Metoprolol Succinate Ext Rel 25 Mg Tabcr PO Not Given DAILY [facility] Nortriptyline HCl 10 mg 07/22/25 21:00 Nortriptyline Hcl 10 Mg Capsule PO HS GALINA Pantoprazole Sodium 40 mg 07/22/25 09:00 07/22/25 09:55 Pantoprazole 40 Mg Tablet PO 40 mg QAM [facility] Administration Polyethylene Glycol 17 gm 07/22/25 03:53 Polyethylene Glycol 3350 17 Gm Powd.Pack PO DAILY PRN Constipation Sucralfate 1 gm 07/22/25 11:30 07/22/25 11:54 Sucralfate 1 Gm Tablet PO Not Given ACHS [facility] Vitamin D 125 mcg 07/22/25 09:00 07/22/25 09:56 Cholecalciferol (Vitamin D3) 125 Mcg (5,000 Units) Tablet PO 125 mcg DAILY GALINA Administration Radiology Results: ITS Impressions Chest X-Ray 07/21/25 16:18 Impression: CHF. Left lung nodule. CT chest with contrast recommended Chest/Abdomen/Pelvis CT 07/21/25 17:48 IMPRESSION: 1. Probable CHF. 2. Cirrhotic disease of the liver with small amount of probable ascites. 3. Probable cystitis. Labs Labs: Laboratory Results - last 24 hr 07/21/25 07/21/25 07/21/25 15:54 16:00 16:01 WBC 4.1 L RBC 3.66 L Hgb 12.3 Hct 37.3 MCV 101.9 H MCH 33.6 MCHC 33.0 RDW 16.5 H Plt Count 268 MPV 8.9 Immature Gran % (Auto) 0.5 Neut % (Auto) 68.4 Lymph % (Auto) 16.6 L [place] % (Auto) 11.5 H Eos % (Auto) 2.0 Baso % (Auto) 1.0 Lymph # (Auto) 0.68 L [place] # (Auto) 0.5 Eos # (Auto) 0.1 Baso # (Auto) 0.0 Abs Immat Gran (auto) 0.02 Absolute Neuts (auto) 2.8 Absolute Nucleated RBC 0.000 Nucleated RBC % 0.0 PT 25.5 H INR 2.4 APTT 44.3 H Sodium 122 L Potassium 5.4 H Chloride 94 L Carbon Dioxide 19 L Anion Gap 9 BUN 27 H D Creatinine 0.99 Estim Creat Clear Calc 63 Estimated GFR 57 L Glucose 150 H POC Capillary Glucose 162 H Lactic Acid 1.9 Calcium 9.3 Magnesium 2.2 Total Bilirubin 3.7 H AST 73 H ALT 32 Alkaline Phosphatase 416 H Troponin I 0.020 NT-Pro-B Natriuret Pep 30843 H Cancelled Total Protein 7.5 Albumin 3.7 Lipase 33 TSH (Reflex) 4.550 Free T4 2.81 H Urine Color Urine Appearance Urine pH Ur Specific [place] Urine Protein Urine Glucose (UA) Urine Ketones Ur Blood (Man) Urine Nitrate Urine Bilirubin Urine Urobilinogen Add Ur Microanalysis Leukocyte Esterase Rfl Urine RBC Urine WBC Ur Squamous Epith Cells Urine Bacteria Urine Casts Influenza A (RT-PCR) Negative Influenza B (RT-PCR) Negative RSV (RT-PCR) Negative SARS-CoV-2 RNA (RT-PCR) Negative 07/21/25 07/21/25 07/21/25 16:18 20:08 20:49 WBC RBC Hgb Hct MCV MCH MCHC RDW Plt Count MPV Immature Gran % (Auto) Neut % (Auto) Lymph % (Auto) [place] % (Auto) Eos % (Auto) Baso % (Auto) Lymph # (Auto) [place] # (Auto) Eos # (Auto) Baso # (Auto) Abs Immat Gran (auto) Absolute Neuts (auto) Absolute Nucleated RBC Nucleated RBC % PT INR APTT Sodium Potassium Chloride Carbon Dioxide Anion Gap BUN Creatinine Estim Creat Clear Calc Estimated GFR Glucose POC Capillary Glucose 100 Lactic Acid Calcium Magnesium Total Bilirubin AST ALT Alkaline Phosphatase Troponin I 0.022 NT-Pro-B Natriuret Pep Total Protein Albumin Lipase TSH (Reflex) Free T4 Urine Color Dark yellow Urine Appearance Cloudy H Urine pH 5.0 Ur Specific [place] 1.022 Urine Protein 1+ H Urine Glucose (UA) 3+ H Urine Ketones Negative Ur Blood (Man) Negative Urine Nitrate Negative Urine Bilirubin Negative Urine Urobilinogen 1.0 Add Ur Microanalysis Reviewed Leukocyte Esterase Rfl Trace H Urine RBC 6-10 H Urine WBC 0-5 Ur Squamous Epith Cells None seen Urine Bacteria None seen Urine Casts 11-20 Influenza A (RT-PCR) Influenza B (RT-PCR) RSV (RT-PCR) SARS-CoV-2 RNA (RT-PCR) 07/21/25 07/22/25 07/22/25 23:06 01:11 06:47 WBC 4.7 RBC 3.63 L Hgb 12.3 Hct 36.9 L MCV 101.7 H MCH 33.9 MCHC 33.3 RDW 16.6 H Plt Count 271 MPV 9.1 Immature Gran % (Auto) 0.6 H Neut % (Auto) 61.5 Lymph % (Auto) 17.8 L [place] % (Auto) 14.6 H Eos % (Auto) 4.0 Baso % (Auto) 1.5 H Lymph # (Auto) 0.84 L [place] # (Auto) 0.7 H Eos # (Auto) 0.2 Baso # (Auto) 0.1 Abs Immat Gran (auto) 0.03 Absolute Neuts (auto) 2.9 Absolute Nucleated RBC 0.020 H Nucleated RBC % 0.4 H PT INR APTT Sodium 123 L Potassium 5.2 H Chloride 94 L Carbon Dioxide 16 L Anion Gap 13 H BUN 27 H Creatinine 1.11 H Estim Creat Clear Calc 58 Estimated GFR 50 L Glucose 91 POC Capillary Glucose 86 139 H Lactic Acid Calcium 9.0 Magnesium Total Bilirubin 3.6 H AST 82 H ALT 41 H Alkaline Phosphatase 425 H Troponin I NT-Pro-B Natriuret Pep Total Protein 7.6 Albumin 3.6 Lipase TSH (Reflex) Free T4 Urine Color Urine Appearance Urine pH Ur Specific [place] Urine Protein Urine Glucose (UA) Urine Ketones Ur Blood (Man) Urine Nitrate Urine Bilirubin Urine Urobilinogen Add Ur Microanalysis Leukocyte Esterase Rfl Urine RBC Urine WBC Ur Squamous Epith Cells Urine Bacteria Urine Casts Influenza A (RT-PCR) Influenza B (RT-PCR) RSV (RT-PCR) SARS-CoV-2 RNA (RT-PCR) 07/22/25 07/22/25 09:54 11:33 WBC RBC Hgb Hct MCV MCH MCHC RDW Plt Count MPV Immature Gran % (Auto) Neut % (Auto) Lymph % (Auto) [place] % (Auto) Eos % (Auto) Baso % (Auto) Lymph # (Auto) [place] # (Auto) Eos # (Auto) Baso # (Auto) Abs Immat Gran (auto) Absolute Neuts (auto) Absolute Nucleated RBC Nucleated RBC % PT INR APTT Sodium Potassium Chloride Carbon Dioxide Anion Gap BUN Creatinine Estim Creat Clear Calc Estimated GFR Glucose POC Capillary Glucose 130 H 148 H Lactic Acid Calcium Magnesium Total Bilirubin AST ALT Alkaline Phosphatase Troponin I NT-Pro-B Natriuret Pep Total Protein Albumin Lipase TSH (Reflex) Free T4 Urine Color Urine Appearance Urine pH Ur Specific [place] Urine Protein Urine Glucose (UA) Urine Ketones Ur Blood (Man) Urine Nitrate Urine Bilirubin Urine Urobilinogen Add Ur Microanalysis Leukocyte Esterase Rfl Urine RBC Urine WBC Ur Squamous Epith Cells Urine Bacteria Urine Casts Influenza A (RT-PCR) Influenza B (RT-PCR) RSV (RT-PCR) SARS-CoV-2 RNA (RT-PCR) Quality VTE Prophylaxis VTE prophylaxis: pharmacologic ordered (Continue home Eliquis.) Hospitalist MIPS Advance Care Plan I have confirmed that the patient's Advanced Care Plan is present, code status is documented, or surrogate decision maker is listed in patient medical record.: Yes Medication Reconciliation I have utilized all available resources to obtain, update and review the patients current medications (includes all prescriptions, OTC, herbals, cannabis, and nutritional supplements).: Yes
[2025-07-22 15:53] LABS: Anion Gap 9 mmol/L (4-12); Blood Urea Nitrogen 29 mg/dL (7-17); Calcium 9.0 mg/dL (8.4-10.2); Carbon Dioxide 20 mmol/L (22-30); Chloride 92 mmol/L (98-107); Estimated CRCL calculation 54 ml/min; Estimated Glomerular Filt Rate 46; Glucose 146 mg/dL (65-110); Potassium 4.9 mmol/L (3.4-5.0); Sodium 121 mmol/L (137-145)
[2025-07-22] MEDS: SUCRALFATE 1 GM TABLET PO ×2 (16:36→20:44)
--- NOTE | 2025-07-22 17:56 | PC.NURSE ---
patient's mood has much improved since this morning. Patient has been agreeable to medications, vitals, blood sugar, having her hair washed/ brushed, and a bath. pt has been more calm and cooperative with minimal crying/ whining.
[2025-07-22] MEDS: NORTRIPTYLINE HCL 10 MG CAPSULE PO (20:45)
[2025-07-22] MEDS: INSULIN GLARGINE (*BKC) 100 UNITS/ML 10 UNITS SUB-Q (23:17)
[2025-07-23] VITALS (9 sets, daily range): BP systolic 94–119; BP diastolic 43–71; PULSE 92–123; RESP 18–20; TEMP 36–36.6; O2SAT 97–99
[2025-07-23 05:01] LABS: Alanine Aminotransferase 57 U/L (6-35); Albumin Level 3.7 g/dL (3.5-5.1); Alkaline Phosphatase 382 U/L (38-126); Anion Gap 9 mmol/L (4-12); Aspartate Amino Transferase 118 U/L (14-36); Bilirubin,Total 4.5 mg/dL (0.2-1.3); Blood Urea Nitrogen 31 mg/dL (7-17); Calcium 9.0 mg/dL (8.4-10.2); Carbon Dioxide 20 mmol/L (22-30); Chloride 94 mmol/L (98-107); Estimated CRCL calculation 54 ml/min; Estimated Glomerular Filt Rate 45; Glucose 148 mg/dL (65-110); Potassium 5.2 mmol/L (3.4-5.0); Sodium 123 mmol/L (137-145); Total Protein 7.5 g/dL (6.3-8.2)
[2025-07-23 05:03] LABS: Hematocrit 37.4 % (37.0-47.0); Hemoglobin 12.5 g/dL (12.0-15.0); Immature Granulocyte Percent A 0.2 % (0-0.5); Lymphocytes Absolute Auto 0.82 K/mm3 (0.9-3.2); Mean Corpuscular HGB Conc 33.4 g/dl (32-36); Mean Corpuscular Hemoglobin 33.7 pg (26-34); Mean Corpuscular Volume 100.8 fl (80-100); Nucleated Red Blood Cells Absolute Auto 0.020 K/mm3 (0.0-0.012); Nucleated Red Blood Cells Perc 0.5 % (0.0-0.2); Platelet Count Result 275 k/mm3 (150-375); Red Blood Count 3.71 M/mm3 (4.2-5.4); White Blood Count 4.2 K/mm3 (4.5-10.0)
[2025-07-23] MEDS: CEPHALEXIN 500 MG CAPSULE 1000 MG PO ×2 (05:05→16:50)
[2025-07-23] MEDS: LEVOTHYROXINE SODIUM 75 MCG TABLET PO (05:38)
[2025-07-23] MEDS: SUCRALFATE 1 GM TABLET PO ×3 (05:43→16:50)
--- NOTE | 2025-07-23 08:46 | PM.PNCARD ---
Progress Note: A&P Assessment and Plan (1) Atrial fibrillation: Qualifiers: Atrial fibrillation type: permanent Qualified Code(s): I48.21 - Permanent atrial fibrillation Code(s): I48.91 - Unspecified atrial fibrillation Status: Chronic Assessment and Plan: Rate control strategy with metoprolol. Can up titrate metoprolol as needed. Continue metoprolol with holding parameters. Continue apixaban 5mg q12h. (2) Acute exacerbation of CHF (congestive heart failure): Code(s): I50.9 - Heart failure, unspecified Status: Acute Assessment and Plan: Perhaps mild CHF exacerbation which appears to have improved with IV Bumex as she has no swelling and is breathing comfortably on room air. Continue Bumex 1 mg p.o. daily. Continue with daily weights, strict intaky & output. (3) Nonischemic cardiomyopathy: Code(s): I42.8 - Other cardiomyopathies Status: Acute Assessment and Plan: EF 40-45%. Continue GDMT with Entresto, spironolactone, jardiance, ToprolXL as renal function, electrolytes, and BP allow. Plan Cardiology will sign off. Please call with any questions. Subjective Date/time seen: 07/23/25 08:46 Interval history: Cardiology follow-up visit Date of service 07/23/2025: Patient is more alert today. She does state that she feels some shortness of breath. Other than that she has no complaints. Review of Systems Review of Systems: ROS unobtainable: Yes unobtainable due to mental status Exam Const: General: comfortable, no acute distress, alert and awake Orientation/consciousness: No patient oriented x3 HENMT: Head: normal to inspection Eyes: General: appearance normal, both eyes and all related structures Pupils: Equal, round and reactive pupils present Neck: Neck: normal visual inspection and supple Carotids: normal carotid upstroke Resp: Effort & Inspection: normal respiratory effort Auscultation: rales Cardio: Rate: regular rate Rhythm: abnormal rhythm Heart sounds: S1 normal heart sound present, S2 normal heart sound present and no murmurs GI: Auscultation: normal bowel sounds Skin: General skin exam: normal color and lesion Lesions: lesion noted Neuro: General: No patient oriented x3 Cranial nerves: Yes Equal, round and reactive pupils present Extrem: General: normal to inspection Other: no edema Psych: Appearance: grossly normal Mental Status: mental status grossly abnormal Objective Data Vital Signs Vital Signs: Vital Signs - 24 hr 07/22/25 09:46 07/22/25 11:44 07/22/25 11:49 Temperature Pulse Rate 95 103 H Respiratory Rate Blood Pressure 95/48 L 100/62 Pulse Oximetry 98 Oxygen Delivery Room Air 07/22/25 12:00 07/22/25 13:57 07/22/25 15:17 Temperature Pulse Rate 102 H 109 H Respiratory Rate Blood Pressure Pulse Oximetry Oxygen Delivery Room Air 07/22/25 15:44 07/22/25 16:00 07/22/25 17:28 Temperature 36.6 C Pulse Rate 97 109 H 111 H Respiratory Rate 20 Blood Pressure 102/62 Pulse Oximetry 99 Oxygen Delivery 07/22/25 20:00 07/22/25 20:00 07/22/25 22:31 Temperature 36.6 C Pulse Rate 109 H 115 H 101 H Respiratory Rate 20 Blood Pressure 99/78 L Pulse Oximetry 99 Oxygen Delivery 07/23/25 00:00 07/23/25 00:00 07/23/25 02:13 Temperature 36.6 C Pulse Rate 111 H 106 H 108 H Respiratory Rate 20 Blood Pressure 107/66 Pulse Oximetry 98 Oxygen Delivery 07/23/25 03:57 07/23/25 04:00 07/23/25 05:47 Temperature 36.5 C Pulse Rate 107 H 101 H 123 H Respiratory Rate 20 Blood Pressure 99/43 L Pulse Oximetry 99 Oxygen Delivery 07/23/25 08:00 Temperature 36.4 C L Pulse Rate 100 Respiratory Rate 18 Blood Pressure 102/57 L Pulse Oximetry 98 Oxygen Delivery Intake/Output Intake/Output: Intake & Output 07/20/25 07/21/25 07/22/25 07/23/25 23:59 23:59 23:59 23:59 Intake Total 1180 Balance 1180 Meds/Results Medications: Active Medications Generic Name Dose Route Start Last Admin Trade Name Freq PRN Reason Stop Dose Admin Acetaminophen 650 mg 07/22/25 00:30 Acetaminophen 325 Mg Tablet PO Q6H PRN Mild Pain (1-3) or Fever Albuterol 2 puff 07/22/25 03:53 Albuterol Sulfate (*Sp) Aerosol 1 Puff INHALATION Q6H PRN Shortness Of Breath Or Wheezing Apixaban 5 mg 10/13/25 09:00 07/22/25 20:45 Apixaban 5 Mg Tablet PO 5 mg Q12HR GALINA Administration Bumetanide 1 mg 07/23/25 09:00 Bumetanide 1 Mg Tablet PO DAILY GALINA Buspirone HCl 10 mg 07/22/25 09:00 07/22/25 20:51 Buspirone Hcl 10 Mg Tablet PO 10 mg Q12HR GALINA Administration Cephalexin HCl 1,000 mg 07/22/25 04:25 07/23/25 05:05 Cephalexin 500 Mg Capsule PO 1,000 mg Q12H GALINA Administration Cyanocobalamin 500 mcg 07/22/25 09:00 07/22/25 09:56 Cyanocobalamin 500 Mcg Tablet PO 500 mcg DAILY [facility]INA Administration Dextrose 12.5 gm 07/21/25 22:56 Dextrose 50% 25 Gm/50 Ml Syringe IV PUSH PRN PRN Hypoglycemia Protocol Docusate Sodium 100 mg 07/22/25 09:00 07/22/25 16:36 Docusate Sodium 100 Mg Capsule PO 100 mg BID GALINA Administration Empagliflozin 10 mg 07/22/25 09:00 Empagliflozin 10 Mg Tablet PO On Hold: 07/22/25 09:00 DAILY [facility] Escitalopram Oxalate 10 mg 07/22/25 09:00 07/22/25 09:55 Escitalopram Oxalate 10 Mg Tablet PO 10 mg DAILY GALINA Administration Famotidine 20 mg 07/22/25 09:00 07/22/25 23:16 Famotidine 20 Mg/2 Ml Vial IV PUSH 20 mg Q12HR GALINA Administration Ferrous Sulfate 325 mg 07/22/25 09:00 07/22/25 09:56 Ferrous Sulfate 325 Mg Tablet PO 325 mg DAILY [facility] Administration Fluticasone Propionate 1 spray 07/22/25 03:53 Fluticasone Propionate 0.05% Na Spr 16 Gm Btl (*Bkc) NASAL DAILY PRN allergy symptoms/Rhinitis. Glucagon 1 mg 07/21/25 22:56 Glucagon For Inj 1 Mg Vial IM PRN PRN Hypoglycemia Protocol Glucose 15 gm 07/21/25 22:56 Glucose Oral Gel 15 Gm Of Glucse In 37.5 Gm Tube PO PRN PRN Hypoglycemia Protocol Hydroxyzine HCl 25 mg 07/22/25 03:53 Hydroxyzine Hcl 25 Mg Tablet PO Q4H PRN itching or anxiety. Dextrose 1,000 mls @ 100 mls/hr 07/21/25 22:56 Dextrose 5% 1,000 Ml IVPB PRN PRN Hypoglycemia Protocol Insulin Aspart 3 - 6 units 07/22/25 08:00 07/22/25 16:31 Insulin Aspart (*Bkc) 100 Units/Ml SUB-Q Not Given TIDWM [facility] Protocol Insulin Aspart 10 units 07/22/25 08:00 07/22/25 16:31 Insulin Aspart (*Bkc) 100 Units/Ml SUB-Q Not Given TIDWM [facility] Insulin Glargine 10 units 07/22/25 21:00 07/22/25 23:17 Insulin Glargine (*Bkc) 100 Units/Ml SUB-Q 10 units QHS [facility] Administration Levothyroxine Sodium 75 mcg 07/22/25 06:30 07/23/25 05:38 Levothyroxine Sodium 75 Mcg Tablet PO 75 mcg DAILY@0630 [facility] Administration Lidocaine 1 patch 07/22/25 04:21 Lidocaine 5% Patch TRANSDERM DAILY PRN back pain. Magnesium Oxide 400 mg 07/22/25 09:00 07/22/25 09:56 Magnesium Oxide 400 Mg Tablet PO 400 mg DAILY [facility]INA Administration Metoprolol Succinate 25 mg 07/22/25 09:00 07/22/25 09:49 Metoprolol Succinate Ext Rel 25 Mg Tabcr PO Not Given DAILY GALINA Nortriptyline HCl 10 mg 07/22/25 21:00 07/22/25 20:45 Nortriptyline Hcl 10 Mg Capsule PO 10 mg HS GALINA Administration Pantoprazole Sodium 40 mg 07/22/25 09:00 07/22/25 09:55 Pantoprazole 40 Mg Tablet PO 40 mg QAM GALINA Administration Polyethylene Glycol 17 gm 07/22/25 03:53 Polyethylene Glycol 3350 17 Gm Powd.Pack PO DAILY PRN Constipation Sucralfate 1 gm 07/22/25 11:30 07/23/25 05:43 Sucralfate 1 Gm Tablet PO 1 gm ACHS GALINA Administration Vitamin D 125 mcg 07/22/25 09:00 07/22/25 09:56 Cholecalciferol (Vitamin D3) 125 Mcg (5,000 Units) Tablet PO 125 mcg DAILY GALINA Administration Radiology Results: ITS Impressions Chest X-Ray 07/21/25 16:18 Impression: CHF. Left lung nodule. CT chest with contrast recommended Chest/Abdomen/Pelvis CT 07/21/25 17:48 IMPRESSION: 1. Probable CHF. 2. Cirrhotic disease of the liver with small amount of probable ascites. 3. Probable cystitis. Labs Labs: Laboratory Results - last 24 hr 07/22/25 07/22/25 07/22/25 09:54 11:33 15:24 WBC RBC Hgb Hct MCV MCH MCHC RDW Plt Count MPV Immature Gran % (Auto) Neut % (Auto) Lymph % (Auto) [place] % (Auto) Eos % (Auto) Baso % (Auto) Lymph # (Auto) [place] # (Auto) Eos # (Auto) Baso # (Auto) Abs Immat Gran (auto) Absolute Neuts (auto) Absolute Nucleated RBC Nucleated RBC % Sodium 121 L Potassium 4.9 Chloride 92 L Carbon Dioxide 20 L Anion Gap 9 BUN 29 H Creatinine 1.19 H Estim Creat Clear Calc 54 Estimated GFR 46 L Glucose 146 H POC Capillary Glucose 130 H 148 H Calcium 9.0 Total Bilirubin AST ALT Alkaline Phosphatase Total Protein Albumin 07/22/25 07/22/25 07/23/25 16:14 20:53 04:41 WBC 4.2 L RBC 3.71 L Hgb 12.5 Hct 37.4 MCV 100.8 H MCH 33.7 MCHC 33.4 RDW 16.5 H Plt Count 275 MPV 9.2 Immature Gran % (Auto) 0.2 Neut % (Auto) 60.1 Lymph % (Auto) 19.7 [place] % (Auto) 13.5 H Eos % (Auto) 4.8 H Baso % (Auto) 1.7 H Lymph # (Auto) 0.82 L [place] # (Auto) 0.6 Eos # (Auto) 0.2 Baso # (Auto) 0.1 Abs Immat Gran (auto) 0.01 Absolute Neuts (auto) 2.5 Absolute Nucleated RBC 0.020 H Nucleated RBC % 0.5 H Sodium 123 L Potassium 5.2 H Chloride 94 L Carbon Dioxide 20 L Anion Gap 9 BUN 31 H Creatinine 1.21 H Estim Creat Clear Calc 54 Estimated GFR 45 L Glucose 148 H POC Capillary Glucose 155 H 148 H Calcium 9.0 Total Bilirubin 4.5 H AST 118 H ALT 57 H Alkaline Phosphatase 382 H Total Protein 7.5 Albumin 3.7 07/23/25 07:44 WBC RBC Hgb Hct MCV MCH MCHC RDW Plt Count MPV Immature Gran % (Auto) Neut % (Auto) Lymph % (Auto) [place] % (Auto) Eos % (Auto) Baso % (Auto) Lymph # (Auto) [place] # (Auto) Eos # (Auto) Baso # (Auto) Abs Immat Gran (auto) Absolute Neuts (auto) Absolute Nucleated RBC Nucleated RBC % Sodium Potassium Chloride Carbon Dioxide Anion Gap BUN Creatinine Estim Creat Clear Calc Estimated GFR Glucose POC Capillary Glucose 148 H Calcium Total Bilirubin AST ALT Alkaline Phosphatase Total Protein Albumin Quality VTE Prophylaxis VTE prophylaxis: pharmacologic ordered (Continue home Eliquis.)
[2025-07-23] MEDS: MAGNESIUM OXIDE 400 MG TABLET PO (08:56)
[2025-07-23] MEDS: METOPROLOL SUCCINATE EXT REL 25 MG TABCR PO (08:56)
[2025-07-23] MEDS: DOCUSATE SODIUM 100 MG CAPSULE PO ×2 (08:57→16:50)
[2025-07-23] MEDS: FERROUS SULFATE 325 MG TABLET PO (08:57)
[2025-07-23] MEDS: APIXABAN 5 MG TABLET PO (08:57)
[2025-07-23] MEDS: CYANOCOBALAMIN 500 MCG TABLET PO (08:57)
[2025-07-23] MEDS: BUMETANIDE 1 MG TABLET PO (08:57)
[2025-07-23] MEDS: CHOLECALCIFEROL (VITAMIN D3) 125 MCG (5,000 UNITS) TABLET PO (08:58)
[2025-07-23] MEDS: ESCITALOPRAM OXALATE 10 MG TABLET PO (08:58)
[2025-07-23] MEDS: INSULIN ASPART (*BKC) 100 UNITS/ML 10 UNITS SUB-Q ×2 (09:04→12:28)
[2025-07-23] MEDS: PANTOPRAZOLE 40 MG TABLET PO (09:14)
--- NOTE | 2025-07-23 14:41 | P.PNIM_ITS ---
Progress Note: A&P Assessment and Plan (1) CHF exacerbation: Qualifiers: Heart failure type: combined systolic and diastolic Qualified Code(s): I50.43 - Acute on chronic combined systolic (congestive) and diastolic (congestive) heart failure Code(s): I50.9 - Heart failure, unspecified Status: Acute Assessment and Plan: Treated with IV Bumex in the ED, with significant improvement in clinical status. Seen by Cardiology who recommends for restoring to oral dosing at this time as well as holding guideline directed medical therapy as she is borderline hypotensive at this time, to be resumed with improvement of blood pressure. Metoprolol needs the tachycardia as patient has atrial fibrillation if blood pressure allows. 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 Unclear if acute or chronic however patient has baseline intellectual disability which may affect her ability to ascertain neurological change. Na improving 123, from 121 Continue Diuretics (7) Type 2 diabetes mellitus with hyperglycemia: Qualifiers: Diabetes mellitus oysterman insulin use: with usp use Qualified Code(s): E11.65 - Type 2 diabetes mellitus with hyperglycemia; Z79.4 - skilled nursing (current) use of insulin Code(s): E11.65 - Type 2 diabetes mellitus with hyperglycemia Status: Acute Assessment and Plan: Spoke with patient's sisters who did mention patient gets more irritable when her blood sugar is below 130. Will maintain random blood sugar above 130 given this information Insulin sliding scale at this time (8) Atrial fibrillation: Qualifiers: Atrial fibrillation type: permanent Qualified Code(s): I48.21 - Perman ent atrial fibrillation Code(s): I48.91 - Unspecified atrial fibrillation Status: Chronic Assessment and Plan: History of atrial fibrillation on anticoagulation and metoprolol Continue Eliquis and Eliquis (9) Acute kidney injury: Code(s): N17.9 - Acute kidney failure, unspecified Status: Acute Assessment and Plan: Creatinine mildly elevated to 1.21 from 0.99 yesterday, prior baseline was 0.71 in July 04. Could be secondary to hypotension or CHF exacerbation proper, or use of IV Bumex Will trend renal function at this time Bumex transitioned to oral for now (10) Anxiety: Code(s): F41.9 - Anxiety disorder, unspecified Status: Acute Assessment and Plan: The patient's sister's report that she becomes very irritable when she is not on her buspirone which is a home medication. Buspirone has been started b.i.d. Plan DVT prophylaxis on Eliquis Subjective Date/time seen: 07/23/25 14:41 Interval history: Comfortable at bedside Review of Systems Review of Systems: Unobtainable due to patient's intellectual disability Exam Narrative: Weight 104 kg BMI 34.9 Objective Data Vital Signs Vital Signs: Vital Signs - 24 hr 07/22/25 15:17 07/22/25 15:44 07/22/25 16:00 Temperature 97.8 F Pulse Rate 97 109 H Respiratory Rate 20 Blood Pressure 102/62 Pulse Oximetry 99 Oxygen Delivery Room Air 07/22/25 17:28 07/22/25 20:00 07/22/25 20:00 Temperature 97.8 F Pulse Rate 111 H 109 H 115 H Respiratory Rate 20 Blood Pressure 99/78 L Pulse Oximetry 99 Oxygen Delivery 07/22/25 22:31 07/23/25 00:00 07/23/25 00:00 Temperature 97.8 F Pulse Rate 101 H 111 H 106 H Respiratory Rate 20 Blood Pressure 107/66 Pulse Oximetry 98 Oxygen Delivery 07/23/25 02:13 07/23/25 03:57 07/23/25 04:00 Temperature 97.7 F Pulse Rate 108 H 107 H 101 H Respiratory Rate 20 Blood Pressure 99/43 L Pulse Oximetry 99 Oxygen Delivery 07/23/25 05:47 07/23/25 08:00 07/23/25 08:00 Temperature 97.5 F L Pulse Rate 123 H 100 108 H Respiratory Rate 18 Blood Pressure 102/57 L Pulse Oximetry 98 Oxygen Delivery 07/23/25 08:56 Temperature Pulse Rate 104 H Respiratory Rate Blood Pressure Pulse Oximetry Oxygen Delivery Intake/Output Intake/Output: Intake & Output 07/20/25 07/21/25 07/22/25 07/23/25 23:59 23:59 23:59 23:59 Intake Total 1180 240 Balance 1180 240 Meds/Results Medications: Active Medications Generic Name Dose Route Start Last Admin Trade Name Freq PRN Reason Stop Dose Admin Acetaminophen 650 mg 07/22/25 00:30 Acetaminophen 325 Mg Tablet PO Q6H PRN Mild Pain (1-3) or Fever Albuterol 2 puff 07/22/25 03:53 Albuterol Sulfate (*Sp) Aerosol 1 Puff INHALATION Q6H PRN Shortness Of Breath Or Wheezing Apixaban 5 mg 07/22/25 09:00 07/23/25 08:57 Apixaban 5 Mg Tablet PO 5 mg Q12HR GALINA Administration Bumetanide 1 mg 07/23/25 09:00 07/23/25 08:57 Bumetanide 1 Mg Tablet PO 1 mg DAILY GALINA Administration Buspirone HCl 10 mg 07/22/25 09:00 07/23/25 08:57 Buspirone Hcl 10 Mg Tablet PO 10 mg Q12HR GALINA Administration Cephalexin HCl 1,000 mg 07/22/25 04:25 07/23/25 05:05 Cephalexin 500 Mg Capsule PO 1,000 mg Q12H GALINA Administration Cyanocobalamin 500 mcg 07/22/25 09:00 07/23/25 08:57 Cyanocobalamin 500 Mcg Tablet PO 500 mcg DAILY GALINA Administration Dextrose 12.5 gm 07/21/25 22:56 Dextrose 50% 25 Gm/50 Ml Syringe IV PUSH PRN PRN Hypoglycemia Protocol Docusate Sodium 100 mg 07/22/25 09:00 07/23/25 08:57 Docusate Sodium 100 Mg Capsule PO 100 mg BID GALINA Administration Empagliflozin 10 mg 07/22/25 09:00 Empagliflozin 10 Mg Tablet PO On Hold: 07/22/25 09:00 DAILY GALINA Escitalopram Oxalate 10 mg 07/22/25 09:00 07/23/25 08:58 Escitalopram Oxalate 10 Mg Tablet PO 10 mg DAILY GALINA Administration Famotidine 20 mg 07/22/25 09:00 07/23/25 09:13 Famotidine 20 Mg/2 Ml Vial IV PUSH Not Given Q12HR GALINA Ferrous Sulfate 325 mg 07/22/25 09:00 07/23/25 08:57 Ferrous Sulfate 325 Mg Tablet PO 325 mg DAILY GALINA Administration Fluticasone Propionate 1 spray 07/22/25 03:53 Fluticasone Propionate 0.05% Na Spr 16 Gm Btl (*Bkc) NASAL DAILY PRN allergy symptoms/Rhinitis. Glucagon 1 mg 07/21/25 22:56 Glucagon For Inj 1 Mg Vial IM PRN PRN Hypoglycemia Protocol Glucose 15 gm 07/21/25 22:56 Glucose Oral Gel 15 Gm Of Glucse In 37.5 Gm Tube PO PRN PRN Hypoglycemia Protocol Hydroxyzine HCl 25 mg 07/22/25 03:53 Hydroxyzine Hcl 25 Mg Tablet PO Q4H PRN itching or anxiety. Dextrose 1,000 mls @ 100 mls/hr 07/21/25 22:56 Dextrose 5% 1,000 Ml IVPB PRN PRN Hypoglycemia Protocol Insulin Aspart 3 - 6 units 07/22/25 08:00 07/23/25 12:28 Insulin Aspart (*Bkc) 100 Units/Ml SUB-Q Not Given TIDWM [facility] Protocol Insulin Aspart 10 units 07/22/25 08:00 07/23/25 12:28 Insulin Aspart (*Bkc) 100 Units/Ml SUB-Q 10 units TIDWM GALINA Administration Insulin Glargine 10 units 07/22/25 21:00 07/22/25 23:17 Insulin Glargine (*Bkc) 100 Units/Ml SUB-Q 10 units QHS GALINA Administration Levothyroxine Sodium 75 mcg 07/22/25 06:30 07/23/25 05:38 Levothyroxine Sodium 75 Mcg Tablet PO 75 mcg DAILY@0630 [facility] Administration Lidocaine 1 patch 07/22/25 04:21 Lidocaine 5% Patch TRANSDERM DAILY PRN back pain. Magnesium Oxide 400 mg 07/22/25 09:00 07/23/25 08:56 Magnesium Oxide 400 Mg Tablet PO 400 mg DAILY GALINA Administration Metoprolol Succinate 25 mg 07/22/25 09:00 07/23/25 08:56 Metoprolol Succinate Ext Rel 25 Mg Tabcr PO 25 mg DAILY GALINA Administration Nortriptyline HCl 10 mg 07/22/25 21:00 07/22/25 20:45 Nortriptyline Hcl 10 Mg Capsule PO 10 mg HS GALINA Administration Pantoprazole Sodium 40 mg 07/22/25 09:00 07/23/25 09:14 Pantoprazole 40 Mg Tablet PO 40 mg QAM GALINA Administration Polyethylene Glycol 17 gm 07/22/25 03:53 Polyethylene Glycol 3350 17 Gm Powd.Pack PO DAILY PRN Constipation Sucralfate 1 gm 07/22/25 11:30 07/23/25 12:28 Sucralfate 1 Gm Tablet PO 1 gm ACHS GALINA Administration Vitamin D 125 mcg 07/22/25 09:00 07/23/25 08:58 Cholecalciferol (Vitamin D3) 125 Mcg (5,000 Units) Tablet PO 125 mcg DAILY GALINA Administration Radiology Results: ITS Impressions Chest X-Ray 07/21/25 16:18 Impression: CHF. Left lung nodule. CT chest with contrast recommended Chest/Abdomen/Pelvis CT 07/21/25 17:48 IMPRESSION: 1. Probable CHF. 2. Cirrhotic disease of the liver with small amount of probable ascites. 3. Probable cystitis. Labs Labs: Laboratory Results - last 24 hr 07/22/25 07/22/25 07/22/25 15:24 16:14 20:53 WBC RBC Hgb Hct MCV MCH MCHC RDW Plt Count MPV Immature Gran % (Auto) Neut % (Auto) Lymph % (Auto) [place] % (Auto) Eos % (Auto) Baso % (Auto) Lymph # (Auto) [place] # (Auto) Eos # (Auto) Baso # (Auto) Abs Immat Gran (auto) Absolute Neuts (auto) Absolute Nucleated RBC Nucleated RBC % Sodium 121 L Potassium 4.9 Chloride 92 L Carbon Dioxide 20 L Anion Gap 9 BUN 29 H Creatinine 1.19 H Estim Creat Clear Calc 54 Estimated GFR 46 L Glucose 146 H POC Capillary Glucose 155 H 148 H Calcium 9.0 Total Bilirubin AST ALT Alkaline Phosphatase Total Protein Albumin 07/23/25 07/23/25 07/23/25 04:41 07:44 11:31 WBC 4.2 L RBC 3.71 L Hgb 12.5 Hct 37.4 MCV 100.8 H MCH 33.7 MCHC 33.4 RDW 16.5 H Plt Count 275 MPV 9.2 Immature Gran % (Auto) 0.2 Neut % (Auto) 60.1 Lymph % (Auto) 19.7 [place] % (Auto) 13.5 H Eos % (Auto) 4.8 H Baso % (Auto) 1.7 H Lymph # (Auto) 0.82 L [place] # (Auto) 0.6 Eos # (Auto) 0.2 Baso # (Auto) 0.1 Abs Immat Gran (auto) 0.01 Absolute Neuts (auto) 2.5 Absolute Nucleated RBC 0.020 H Nucleated RBC % 0.5 H Sodium 123 L Potassium 5.2 H Chloride 94 L Carbon Dioxide 20 L Anion Gap 9 BUN 31 H Creatinine 1.21 H Estim Creat Clear Calc 54 Estimated GFR 45 L Glucose 148 H POC Capillary Glucose 148 H 127 H Calcium 9.0 Total Bilirubin 4.5 H AST 118 H ALT 57 H Alkaline Phosphatase 382 H Total Protein 7.5 Albumin 3.7 Quality VTE Prophylaxis VTE prophylaxis: pharmacologic ordered (Continue home Eliquis.)
[2025-07-23] MEDS: DEXTROSE 50% 25 GM/50 ML SYRINGE IV PUSH (21:03)
[2025-07-23] MEDS: FAMOTIDINE 20 MG/2 ML VIAL IV PUSH (21:28)
--- NOTE | 2025-07-23 23:16 | PC.NURSE ---
At start of shift patient awakens to my voice but not responding to commands, withdrawn VVS blood sugar 67, PIV occluded, attempted glucose gel patient spit out new IV obtained Dextrose given patient yelling and thrashing in bed upset with room change. patient refusing night PO medication Dr Pope aware
[2025-07-24] MEDS: CEPHALEXIN 500 MG CAPSULE 1000 MG PO ×2 (05:07→18:12)
[2025-07-24] MEDS: LEVOTHYROXINE SODIUM 75 MCG TABLET PO (05:46)
[2025-07-24] MEDS: SUCRALFATE 1 GM TABLET PO ×4 (05:46→20:50)
[2025-07-24 06:02] LABS: Hematocrit 38.2 % (37.0-47.0); Hemoglobin 12.7 g/dL (12.0-15.0); Immature Granulocyte Percent A 0.5 % (0-0.5); Lymphocytes Absolute Auto 0.84 K/mm3 (0.9-3.2); Mean Corpuscular HGB Conc 33.2 g/dl (32-36); Mean Corpuscular Hemoglobin 33.8 pg (26-34); Mean Corpuscular Volume 101.6 fl (80-100); Nucleated Red Blood Cells Absolute Auto 0.020 K/mm3 (0.0-0.012); Nucleated Red Blood Cells Perc 0.5 % (0.0-0.2); Platelet Count Result 269 k/mm3 (150-375); Red Blood Count 3.76 M/mm3 (4.2-5.4); White Blood Count 4.3 K/mm3 (4.5-10.0)
[2025-07-24 06:27] LABS: Alanine Aminotransferase 59 U/L (6-35); Albumin Level 3.6 g/dL (3.5-5.1); Alkaline Phosphatase 388 U/L (38-126); Anion Gap 7 mmol/L (4-12); Aspartate Amino Transferase 123 U/L (14-36); Bilirubin,Total 3.8 mg/dL (0.2-1.3); Blood Urea Nitrogen 31 mg/dL (7-17); Calcium 8.6 mg/dL (8.4-10.2); Carbon Dioxide 23 mmol/L (22-30); Chloride 92 mmol/L (98-107); Estimated CRCL calculation 56 ml/min; Estimated Glomerular Filt Rate 46; Glucose 74 mg/dL (65-110); Magnesium 2.5 mg/dL (1.6-2.3); Potassium 5.1 mmol/L (3.4-5.0); Sodium 122 mmol/L (137-145); Total Protein 7.4 g/dL (6.3-8.2)
[2025-07-24 08:00] VITALS: BP 94/52; PULSE 90; RESP 16; TEMP 36.3; O2SAT 98
[2025-07-24] MEDS: DOCUSATE SODIUM 100 MG CAPSULE PO ×2 (09:09→18:14)
[2025-07-24] MEDS: FERROUS SULFATE 325 MG TABLET PO (09:09)
[2025-07-24 09:10] VITALS: PULSE 78
[2025-07-24] MEDS: CHOLECALCIFEROL (VITAMIN D3) 125 MCG (5,000 UNITS) TABLET PO (09:10)
[2025-07-24] MEDS: CYANOCOBALAMIN 500 MCG TABLET PO (09:10)
[2025-07-24] MEDS: PANTOPRAZOLE 40 MG TABLET PO (09:10)
[2025-07-24] MEDS: METOPROLOL SUCCINATE EXT REL 25 MG TABCR PO (09:10)
[2025-07-24] MEDS: MAGNESIUM OXIDE 400 MG TABLET PO (09:10)
[2025-07-24] MEDS: ESCITALOPRAM OXALATE 10 MG TABLET PO (09:10)
[2025-07-24] MEDS: APIXABAN 5 MG TABLET PO ×2 (09:10→20:50)
[2025-07-24] MEDS: BUMETANIDE 1 MG TABLET PO (09:15)
[2025-07-24] MEDS: SODIUM CHLORIDE 1 GM TABLET PO ×3 (09:15→18:14)
[2025-07-24] MEDS: INSULIN ASPART (*BKC) 100 UNITS/ML 10 UNITS SUB-Q ×3 (09:18→18:22)
[2025-07-24] MEDS: FAMOTIDINE 20 MG/2 ML VIAL IV PUSH ×2 (09:30→21:02)
--- NOTE | 2025-07-24 12:10 | PM.IMPN ---
Progress Note: A&P Assessment and Plan (1) CHF exacerbation: Qualifiers: Heart failure type: combined systolic and diastolic Qualified Code(s): I50.43 - Acute on chronic combined systolic (congestive) and diastolic (congestive) heart failure Code(s): I50.9 - Heart failure, unspecified Status: Acute Assessment and Plan: Treated with IV Bumex in the ED, with significant improvement in clinical status. COnitneu Bumex adn metoprolol cardiology following (2) Pulmonary hypertension: Code(s): I27.20 - Pulmonary hypertension, unspecified Status: Acute Assessment and Plan: continue above care (3) Nonischemic cardiomyopathy: Code(s): I42.8 - Other cardiomyopathies Status: Acute Assessment and Plan: Cardiology on board, GDMT on hold due to blood pressure, to be resumed when blood pressure allows (4) CHF due to valvular disease: Code(s): I50.9 - Heart failure, unspecified; I38 - Endocarditis, valve unspecified Status: Acute Assessment and Plan: On chronic antibiotic therapy-cephalexin Continue at this time (5) Chronic hypotension: Code(s): I95.89 - Other hypotension Status: Acute Assessment and Plan: Blood pressure medications on hold (6) Hyponatremia: Code(s): E87.1 - Hypo-osmolality and hyponatremia Status: Acute Assessment and Plan: Could be secondary to fluid overload, will repeat sodium with fluid restriction at this time. Unclear if acute or chronic however patient has baseline intellectual disability which may affect her ability to ascertain neurological change. Na improving 122, from 121 Started on Salt tablets and continue Bumex. 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 Will maintain random blood sugar above 130 given this information Insulin sliding scale at this time (8) Atrial fibrillation: Qualifiers: Atrial fibrillation type: permanent Qualified Code(s): I48.21 - Permanent atrial fibrillation Code(s): I48.91 - Unspecified atrial fibrillation Status: Chronic Assessment and Plan: History of atrial fibrillation on anticoagulation and metoprolol Continue Metoprolol and Eliquis (9) Acute kidney injury: Code(s): N17.9 - Acute kidney failure, unspecified Status: Acute Assessment and Plan: Creatinine mildly elevated to 1.18from 0.99 yesterday, prior baseline was 0.71 in July 04. Could be secondary to hypotension or CHF exacerbation proper, or use of IV Bumex Will trend renal function at this time Bumex transitioned to oral for now (10) Anxiety: Code(s): F41.9 - Anxiety disorder, unspecified Status: Acute Assessment and Plan: The patient's sister's report that she becomes very irritable when she is not on her buspirone which is a home medication. Buspirone has been started b.i.d. Plan DVT prophylaxis on Eliquis Subjective Date/time seen: 07/24/25 12:10 Interval history: Comfortable at bedside Na still 122 today Started on Salt tablets and continue Bumex monitor one more day Review of Systems Review of Systems: Unobtainable due to patient's intellectual disability Exam Narrative: Weight 104 kg BMI 34.9 Objective Data Vital Signs Vital Signs: Vital Signs - 24 hr 07/23/25 16:00 07/23/25 20:51 07/24/25 08:00 Temperature 96.8 F L 97.6 F 97.3 F L Pulse Rate 94 92 90 Respiratory Rate 20 20 16 Blood Pressure 119/71 94/60 L 94/52 L Pulse Oximetry 97 98 98 07/24/25 09:10 Temperature Pulse Rate 78 Respiratory Rate Blood Pressure Pulse Oximetry Intake/Output Intake/Output: Intake & Output 07/21/25 07/22/25 07/23/25 07/24/25 23:59 23:59 23:59 23:59 Intake Total 1180 810 290 Balance 1180 810 290 Meds/Results Medications: Active Medications Generic Name Dose Route Start Last Admin Trade Name Freq PRN Reason Stop Dose Admin Acetaminophen 650 mg 07/22/25 00:30 Acetaminophen 325 Mg Tablet PO Q6H PRN Mild Pain (1-3) or Fever Albuterol 2 puff 07/22/25 03:53 Albuterol Sulfate (*Sp) Aerosol 1 Puff INHALATION Q6H PRN Shortness Of Breath Or Wheezing Apixaban 5 mg 07/22/25 09:00 07/24/25 09:10 Apixaban 5 Mg Tablet PO 5 mg Q12HR GALINA Administration Bumetanide 1 mg 07/24/25 09:00 07/24/25 09:15 Bumetanide 1 Mg Tablet PO 1 mg BID GALINA Administration Buspirone HCl 10 mg 07/22/25 09:00 07/23/25 23:27 Buspirone Hcl 10 Mg Tablet PO Not Given Q12HR GALINA Cephalexin HCl 1,000 mg 07/22/25 04:25 07/24/25 05:07 Cephalexin 500 Mg Capsule PO 1,000 mg Q12H GALINA Administration Cyanocobalamin 500 mcg 07/22/25 09:00 07/24/25 09:10 Cyanocobalamin 500 Mcg Tablet PO 500 mcg DAILY GALINA Administration Dextrose 12.5 gm 07/21/25 22:56 07/23/25 21:03 Dextrose 50% 25 Gm/50 Ml Syringe IV PUSH 12.5 gm PRN PRN Administration Hypoglycemia Protocol Docusate Sodium 100 mg 07/22/25 09:00 07/24/25 09:09 Docusate Sodium 100 Mg Capsule PO 100 mg BID GALINA Administration Empagliflozin 10 mg 07/22/25 09:00 Empagliflozin 10 Mg Tablet PO On Hold: 07/22/25 09:00 DAILY GALINA Escitalopram Oxalate 10 mg 07/22/25 09:00 07/24/25 09:10 Escitalopram Oxalate 10 Mg Tablet PO 10 mg DAILY GALINA Administration Famotidine 20 mg 07/22/25 09:00 07/23/25 21:28 Famotidine 20 Mg/2 Ml Vial IV PUSH 20 mg Q12HR GALINA Administration Ferrous Sulfate 325 mg 07/22/25 09:00 07/24/25 09:09 Ferrous Sulfate 325 Mg Tablet PO 325 mg DAILY [facility]AL[facility] Administration Fluticasone Propionate 1 spray 07/22/25 03:53 Fluticasone Propionate 0.05% Na Spr 16 Gm Btl (*Bkc) NASAL DAILY PRN allergy symptoms/Rhinitis. Glucagon 1 mg 07/21/25 22:56 Glucagon For Inj 1 Mg Vial IM PRN PRN Hypoglycemia Protocol Glucose 15 gm 07/21/25 22:56 Glucose Oral Gel 15 Gm Of Glucse In 37.5 Gm Tube PO PRN PRN Hypoglycemia Protocol Hydroxyzine HCl 25 mg 07/22/25 03:53 Hydroxyzine Hcl 25 Mg Tablet PO Q4H PRN itching or anxiety. Dextrose 1,000 mls @ 100 mls/hr 07/21/25 22:56 Dextrose 5% 1,000 Ml IVPB PRN PRN Hypoglycemia Protocol Insulin Aspart 3 - 6 units 07/22/25 08:00 07/24/25 09:03 Insulin Aspart (*Bkc) 100 Units/Ml SUB-Q Not Given TIDWM [facility] Protocol Insulin Aspart 10 units 07/22/25 08:00 07/24/25 09:18 Insulin Aspart (*Bkc) 100 Units/Ml SUB-Q 10 units TIDWM G[facility] Administration Insulin Glargine 10 units 07/22/25 21:00 07/23/25 23:27 Insulin Glargine (*Bkc) 100 Units/Ml SUB-Q Not Given On Hold: 07/23/25 21:20 QHS GALINA Resume: 07/24/25 20:00 Levothyroxine Sodium 75 mcg 07/22/25 06:30 07/24/25 05:46 Levothyroxine Sodium 75 Mcg Tablet PO 75 mcg DAILY@0630 GALINA Administration Lidocaine 1 patch 07/22/25 04:21 Lidocaine 5% Patch TRANSDERM DAILY PRN back pain. Magnesium Oxide 400 mg 07/22/25 09:00 07/24/25 09:10 Magnesium Oxide 400 Mg Tablet PO 400 mg DAILY GALINA Administration Metoprolol Succinate 25 mg 07/22/25 09:00 07/24/25 09:10 Metoprolol Succinate Ext Rel 25 Mg Tabcr PO 25 mg DAILY GALINA Administration Nortriptyline HCl 10 mg 07/22/25 21:00 07/23/25 23:28 Nortriptyline Hcl 10 Mg Capsule PO Not Given HS GALINA Pantoprazole Sodium 40 mg 07/22/25 09:00 07/24/25 09:10 Pantoprazole 40 Mg Tablet PO 40 mg QAM GALINA Administration Polyethylene Glycol 17 gm 07/22/25 03:53 Polyethylene Glycol 3350 17 Gm Powd.Pack PO DAILY PRN Constipation Sodium Chloride 1 gm 07/24/25 09:00 07/24/25 09:15 Sodium Chloride 1 Gm Tablet PO 1 gm TID GALINA Administration Sucralfate 1 gm 07/22/25 11:30 07/24/25 05:46 Sucralfate 1 Gm Tablet PO 1 gm ACHS GALINA Administration Vitamin D 125 mcg 07/22/25 09:00 07/24/25 09:10 Cholecalciferol (Vitamin D3) 125 Mcg (5,000 Units) Tablet PO 125 mcg DAILY GALINA Administration Radiology Results: ITS Impressions Chest X-Ray 07/21/25 16:18 Impression: CHF. Left lung nodule. CT chest with contrast recommended Chest/Abdomen/Pelvis CT 07/21/25 17:48 IMPRESSION: 1. Probable CHF. 2. Cirrhotic disease of the liver with small amount of probable ascites. 3. Probable cystitis. Labs Labs: Laboratory Results - last 24 hr 07/23/25 07/23/25 07/23/25 16:03 16:43 20:40 WBC RBC Hgb Hct MCV MCH MCHC RDW Plt Count MPV Immature Gran % (Auto) Neut % (Auto) Lymph % (Auto) [place] % (Auto) Eos % (Auto) Baso % (Auto) Lymph # (Auto) [place] # (Auto) Eos # (Auto) Baso # (Auto) Abs Immat Gran (auto) Absolute Neuts (auto) Absolute Nucleated RBC Nucleated RBC % Sodium Potassium Chloride Carbon Dioxide Anion Gap BUN Creatinine Estim Creat Clear Calc Estimated GFR Glucose POC Capillary Glucose 77 110 H 67 Calcium Magnesium Total Bilirubin AST ALT Alkaline Phosphatase Total Protein Albumin 07/23/25 07/24/25 07/24/25 22:16 01:06 05:29 WBC 4.3 L RBC 3.76 L Hgb 12.7 Hct 38.2 MCV 101.6 H MCH 33.8 MCHC 33.2 RDW 16.6 H Plt Count 269 MPV 9.0 Immature Gran % (Auto) 0.5 Neut % (Auto) 58.6 Lymph % (Auto) 19.7 [place] % (Auto) 12.7 H Eos % (Auto) 7.3 H Baso % (Auto) 1.2 Lymph # (Auto) 0.84 L [place] # (Auto) 0.5 Eos # (Auto) 0.3 Baso # (Auto) 0.1 Abs Immat Gran (auto) 0.02 Absolute Neuts (auto) 2.5 Absolute Nucleated RBC 0.020 H Nucleated RBC % 0.5 H Sodium 122 L Potassium 5.1 H Chloride 92 L Carbon Dioxide 23 Anion Gap 7 BUN 31 H Creatinine 1.18 H Estim Creat Clear Calc 56 Estimated GFR 46 L Glucose 74 POC Capillary Glucose 97 84 Calcium 8.6 Magnesium 2.5 H Total Bilirubin 3.8 H AST 123 H ALT 59 H Alkaline Phosphatase 388 H Total Protein 7.4 Albumin 3.6 07/24/25 07/24/25 08:12 12:05 WBC RBC Hgb Hct MCV MCH MCHC RDW Plt Count MPV Immature Gran % (Auto) Neut % (Auto) Lymph % (Auto) [place] % (Auto) Eos % (Auto) Baso % (Auto) Lymph # (Auto) [place] # (Auto) Eos # (Auto) Baso # (Auto) Abs Immat Gran (auto) Absolute Neuts (auto) Absolute Nucleated RBC Nucleated RBC % Sodium Potassium Chloride Carbon Dioxide Anion Gap BUN Creatinine Estim Creat Clear Calc Estimated GFR Glucose POC Capillary Glucose 81 158 H Calcium Magnesium Total Bilirubin AST ALT Alkaline Phosphatase Total Protein Albumin Quality VTE Prophylaxis VTE prophylaxis: pharmacologic ordered (Continue home Eliquis.)
[2025-07-24] MEDS: NORTRIPTYLINE HCL 10 MG CAPSULE PO (20:50)
[2025-07-24 21:01] VITALS: BP 99/42; PULSE 73; RESP 16; TEMP 36.4; O2SAT 100
[2025-07-24 23:24] VITALS: BP 107/83
[2025-07-25] MEDS: DEXTROSE 50% 25 GM/50 ML SYRINGE IV PUSH ×2 (03:32→04:00)
--- NOTE | 2025-07-25 04:08 | PC.NURSE ---
2030: After family called to report pt's glucose monitor reading low, BS checked 73. Oral carb given. 2129: BS 122 0308. Family called to report pt BS low. Pt states she is feeling ok. Checked at bedside. BS 50. Oral carb given. Recheck at 0330: BS 60. IV dextrose given. Recheck at 0349: 92. Updated hospitalist regarding pt's being hypoglycemic. Due to pt's admission being CHF exacerbation, to avoid fluid overload with [id number], per hospitalist orderd another dose of D50 given. 0411: contacted hospitalist for further orders. order received to hold her insulins for now and monitor BS closely
[2025-07-25 06:31] VITALS: BP 102/56; PULSE 72; RESP 18; TEMP 36.4; O2SAT 100
[2025-07-25 08:00] VITALS: BP 134/94; PULSE 59; RESP 18; TEMP 36.1
[2025-07-25] MEDS: LEVOTHYROXINE SODIUM 75 MCG TABLET PO (08:45)
[2025-07-25] MEDS: SUCRALFATE 1 GM TABLET PO ×3 (08:45→21:37)
[2025-07-25 08:46] VITALS: PULSE 72
[2025-07-25] MEDS: SODIUM CHLORIDE 1 GM TABLET PO ×2 (08:46→13:08)
[2025-07-25] MEDS: FERROUS SULFATE 325 MG TABLET PO (08:46)
[2025-07-25] MEDS: CHOLECALCIFEROL (VITAMIN D3) 125 MCG (5,000 UNITS) TABLET PO (08:46)
[2025-07-25] MEDS: APIXABAN 5 MG TABLET PO ×2 (08:46→21:37)
[2025-07-25] MEDS: METOPROLOL SUCCINATE EXT REL 25 MG TABCR PO (08:46)
[2025-07-25] MEDS: MAGNESIUM OXIDE 400 MG TABLET PO (08:46)
[2025-07-25] MEDS: ESCITALOPRAM OXALATE 10 MG TABLET PO (08:46)
[2025-07-25] MEDS: CYANOCOBALAMIN 500 MCG TABLET PO (08:46)
[2025-07-25] MEDS: PANTOPRAZOLE 40 MG TABLET PO (08:46)
[2025-07-25] MEDS: FAMOTIDINE 20 MG/2 ML VIAL IV PUSH ×2 (08:47→21:37)
[2025-07-25] MEDS: DOCUSATE SODIUM 100 MG CAPSULE PO (08:47)
[2025-07-25] MEDS: BUMETANIDE 1 MG TABLET PO (08:47)
[2025-07-25 09:56] LABS: Alanine Aminotransferase 57 U/L (6-35); Albumin Level 3.4 g/dL (3.5-5.1); Alkaline Phosphatase 424 U/L (38-126); Anion Gap 9 mmol/L (4-12); Aspartate Amino Transferase 92 U/L (14-36); Bilirubin,Total 3.8 mg/dL (0.2-1.3); Blood Urea Nitrogen 31 mg/dL (7-17); Calcium 8.3 mg/dL (8.4-10.2); Carbon Dioxide 19 mmol/L (22-30); Chloride 91 mmol/L (98-107); Estimated CRCL calculation 63 ml/min; Estimated Glomerular Filt Rate 53; Glucose 150 mg/dL (65-110); Potassium 5.7 mmol/L (3.4-5.0); Sodium 119 mmol/L (137-145); Total Protein 7.2 g/dL (6.3-8.2)
--- NOTE | 2025-07-25 11:17 | PCOTNOTE ---
Patient refuses, reporting she has a stomach ache. RN notified.
--- NOTE | 2025-07-25 11:27 | PCPTNOTE ---
Attempted PT evaluation. Patient refuses, reporting she has a stomach ache. RN aware.
--- NOTE | 2025-07-25 15:47 | P.PNIM_ITS ---
Progress Note: A&P Assessment and Plan (1) CHF exacerbation: Qualifiers: Heart failure type: combined systolic and diastolic Qualified Code(s): I50.43 - Acute on chronic combined systolic (congestive) and diastolic (congestive) heart failure Code(s): I50.9 - Heart failure, unspecified Status: Acute Assessment and Plan: Treated with IV Bumex in the ED, with significant improvement in clinical status. COnitneu Bumex adn metoprolol cardiology following (2) Pulmonary hypertension: Code(s): I27.20 - Pulmonary hypertension, unspecified Status: Acute Assessment and Plan: continue above care (3) Nonischemic cardiomyopathy: Code(s): I42.8 - Other cardiomyopathies Status: Acute Assessment and Plan: Cardiology on board, GDMT on hold due to blood pressure, to be resumed when blood pressure allows (4) CHF due to valvular disease: Code(s): I50.9 - Heart failure, unspecified; I38 - Endocarditis, valve unspecified Status: Acute Assessment and Plan: On chronic antibiotic therapy-cephalexin Continue at this time (5) Chronic hypotension: Code(s): I95.89 - Other hypotension Status: Acute Assessment and Plan: Blood pressure medications on hold (6) Hyponatremia: Code(s): E87.1 - Hypo-osmolality and hyponatremia Status: Acute Assessment and Plan: Could be secondary to fluid overload, will repeat sodium with fluid restriction at this time. Unclear if acute or chronic however patient has baseline intellectual disability which may affect her ability to ascertain neurological change. Na improving 119, from 121 on Salt tablets and hold Bumex. 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 Will maintain random blood sugar above 130 given this information Insulin sliding scale at this time (8) Atrial fibrillation: Qualifiers: Atrial fibrillation type: permanent Qualified Code(s): I48.21 - Permanent atrial fibrillation Code(s): I48.91 - Unspecified atrial fibrillation Status: Chronic Assessment and Plan: History of atrial fibrillation on anticoagulation and metoprolol Continue Metoprolol and Eliquis (9) Acute kidney injury: Code(s): N17.9 - Acute kidney failure, unspecified Status: Acute Assessment and Plan: Creatinine mildly elevated to 1.18from 0.99 yesterday, prior baseline was 0.71 in July 04. Could be secondary to hypotension or CHF exacerbation proper, or use of IV Bumex Will trend renal function at this time Bumex transitioned to oral for now (10) Anxiety: Code(s): F41.9 - Anxiety disorder, unspecified Status: Acute Assessment and Plan: The patient's sister's report that she becomes very irritable when she is not on her buspirone which is a home medication. Buspirone has been started b.i.d. Plan DVT prophylaxis on Eliquis Subjective Date/time seen: 07/25/25 15:47 Interval history: Comfortable at bedside Na still 119 today Stop Bumex, continue SAlt tablets Nephrology Review of Systems Review of Systems: Unobtainable due to patient's intellectual disability Exam Narrative: Weight 104 kg BMI 34.9 Objective Data Vital Signs Vital Signs: Vital Signs - 24 hr 07/24/25 21:01 07/24/25 23:24 07/25/25 06:31 Temperature 97.5 F L 97.6 F Pulse Rate 73 72 Respiratory Rate 16 18 Blood Pressure 99/42 L 107/83 102/56 L Pulse Oximetry 100 100 Oxygen Delivery 07/25/25 07:55 07/25/25 08:00 07/25/25 08:46 Temperature 96.9 F L Pulse Rate 59 L 72 Respiratory Rate 18 Blood Pressure 134/94 H Pulse Oximetry Oxygen Delivery Room Air Intake/Output Intake/Output: Intake & Output 07/22/25 07/23/25 07/24/25 07/25/25 23:59 23:59 23:59 23:59 Intake Total 4426 092 6742 240 Output Total 150 Balance 1448 406 5594 90 Meds/Results Medications: Active Medications Generic Name Dose Route Start Last Admin Trade Name Freq PRN Reason Stop Dose Admin Acetaminophen 650 mg 07/22/25 00:30 Acetaminophen 325 Mg Tablet PO Q6H PRN Mild Pain (1-3) or Fever Albuterol 2 puff 07/22/25 03:53 Albuterol Sulfate (*Sp) Aerosol 1 Puff INHALATION Q6H PRN Shortness Of Breath Or Wheezing Apixaban 5 mg 07/22/25 09:00 07/25/25 08:46 Apixaban 5 Mg Tablet PO 5 mg Q12HR GALINA Administration Bumetanide 1 mg 07/25/25 09:00 07/25/25 08:47 Bumetanide 1 Mg Tablet PO 1 mg On Hold: 07/25/25 11:52 DAILY GALINA Administration Buspirone HCl 10 mg 07/22/25 09:00 07/25/25 08:46 Buspirone Hcl 10 Mg Tablet PO 10 mg Q12HR GALINA Administration Cephalexin HCl 1,000 mg 07/22/25 04:25 07/25/25 08:45 Cephalexin 500 Mg Capsule PO Not Given Q12H GALINA Cyanocobalamin 500 mcg 07/22/25 09:00 07/25/25 08:46 Cyanocobalamin 500 Mcg Tablet PO 500 mcg DAILY GALINA Administration Dextrose 12.5 gm 07/21/25 22:56 07/25/25 04:00 Dextrose 50% 25 Gm/50 Ml Syringe IV PUSH 12.5 gm PRN PRN Administration Hypoglycemia Protocol Docusate Sodium 100 mg 07/22/25 09:00 07/25/25 08:47 Docusate Sodium 100 Mg Capsule PO 100 mg BID GALINA Administration Empagliflozin 10 mg 07/22/25 09:00 Empagliflozin 10 Mg Tablet PO On Hold: 07/22/25 09:00 DAILY GALINA Escitalopram Oxalate 10 mg 07/22/25 09:00 07/25/25 08:46 Escitalopram Oxalate 10 Mg Tablet PO 10 mg DAILY GALINA Administration Famotidine 20 mg 07/22/25 09:00 07/25/25 08:47 Famotidine 20 Mg/2 Ml Vial IV PUSH 20 mg Q12HR GALINA Administration Ferrous Sulfate 325 mg 07/22/25 09:00 07/25/25 08:46 Ferrous Sulfate 325 Mg Tablet PO 325 mg DAILY GALINA Administration Fluticasone Propionate 1 spray 07/22/25 03:53 Fluticasone Propionate 0.05% Na Spr 16 Gm Btl (*Bkc) NASAL DAILY PRN allergy symptoms/Rhinitis. Glucagon 1 mg 07/21/25 22:56 Glucagon For Inj 1 Mg Vial IM PRN PRN Hypoglycemia Protocol Glucose 15 gm 07/21/25 22:56 Glucose Oral Gel 15 Gm Of Glucse In 37.5 Gm Tube PO PRN PRN Hypoglycemia Protocol Hydroxyzine HCl 25 mg 07/22/25 03:53 Hydroxyzine Hcl 25 Mg Tablet PO Q4H PRN itching or anxiety. Dextrose 1,000 mls @ 100 mls/hr 07/21/25 22:56 Dextrose 5% 1,000 Ml IVPB PRN PRN Hypoglycemia Protocol Insulin Aspart 3 - 6 units 07/22/25 08:00 07/24/25 16:46 Insulin Aspart (*Bkc) 100 Units/Ml SUB-Q Not Given On Hold: 07/25/25 04:22 TIDWM GALINA Protocol Insulin Aspart 10 units 07/22/25 08:00 07/24/25 18:22 Insulin Aspart (*Bkc) 100 Units/Ml SUB-Q 10 units On Hold: 07/25/25 04:21 TIDWM GALINA Administration Comment: Pt hypoglycemic overnight Insulin Glargine 10 units 07/22/25 21:00 07/24/25 23:22 Insulin Glargine (*Bkc) 100 Units/Ml SUB-Q Not Given On Hold: 07/25/25 04:22 QHS GALINA Levothyroxine Sodium 75 mcg 07/22/25 06:30 07/25/25 08:45 Levothyroxine Sodium 75 Mcg Tablet PO 75 mcg DAILY@0630 GALINA Administration Lidocaine 1 patch 07/22/25 04:21 Lidocaine 5% Patch TRANSDERM DAILY PRN back pain. Magnesium Oxide 400 mg 07/22/25 09:00 07/25/25 08:46 Magnesium Oxide 400 Mg Tablet PO 400 mg DAILY GALINA Administration Metoprolol Succinate 25 mg 07/22/25 09:00 07/25/25 08:46 Metoprolol Succinate Ext Rel 25 Mg Tabcr PO 25 mg DAILY GALINA Administration Nortriptyline HCl 10 mg 07/22/25 21:00 07/24/25 20:50 Nortriptyline Hcl 10 Mg Capsule PO 10 mg HS GALINA Administration Pantoprazole Sodium 40 mg 07/22/25 09:00 07/25/25 08:46 Pantoprazole 40 Mg Tablet PO 40 mg QAM GALINA Administration Polyethylene Glycol 17 gm 07/22/25 03:53 Polyethylene Glycol 3350 17 Gm Powd.Pack PO DAILY PRN Constipation Sodium Chloride 1 gm 07/24/25 09:00 07/25/25 13:08 Sodium Chloride 1 Gm Tablet PO 1 gm TID GALINA Administration Sucralfate 1 gm 07/22/25 11:30 07/25/25 11:44 Sucralfate 1 Gm Tablet PO 1 gm ACHS GALINA Administration Vitamin D 125 mcg 07/22/25 09:00 07/25/25 08:46 Cholecalciferol (Vitamin D3) 125 Mcg (5,000 Units) Tablet PO 125 mcg DAILY GALINA Administration Radiology Results: ITS Impressions Chest X-Ray 07/21/25 16:18 Impression: CHF. Left lung nodule. CT chest with contrast recommended Chest/Abdomen/Pelvis CT 07/21/25 17:48 IMPRESSION: 1. Probable CHF. 2. Cirrhotic disease of the liver with small amount of probable ascites. 3. Probable cystitis. Labs Labs: Laboratory Results - last 24 hr 07/24/25 07/24/25 07/24/25 16:03 20:23 21:30 Sodium Potassium Chloride Carbon Dioxide Anion Gap BUN Creatinine Estim Creat Clear Calc Estimated GFR Glucose POC Capillary Glucose 99 73 122 H Calcium Total Bilirubin AST ALT Alkaline Phosphatase Total Protein Albumin Ur Random Sodium 07/25/25 07/25/25 07/25/25 03:08 03:25 03:30 Sodium Potassium Chloride Carbon Dioxide Anion Gap BUN Creatinine Estim Creat Clear Calc Estimated GFR Glucose POC Capillary Glucose 50 L* 60 L Calcium Total Bilirubin AST ALT Alkaline Phosphatase Total Protein Albumin Ur Random Sodium 46 07/25/25 07/25/25 07/25/25 03:49 05:37 07:48 Sodium Potassium Chloride Carbon Dioxide Anion Gap BUN Creatinine Estim Creat Clear Calc Estimated GFR Glucose POC Capillary Glucose 92 144 H 168 H Calcium Total Bilirubin AST ALT Alkaline Phosphatase Total Protein Albumin Ur Random Sodium 07/25/25 07/25/25 09:23 11:41 Sodium 119 L* Potassium 5.7 H Chloride 91 L Carbon Dioxide 19 L Anion Gap 9 BUN 31 H Creatinine 1.05 H Estim Creat Clear Calc 63 Estimated GFR 53 L Glucose 150 H POC Capillary Glucose 236 H Calcium 8.3 L Total Bilirubin 3.8 H AST 92 H ALT 57 H Alkaline Phosphatase 424 H Total Protein 7.2 Albumin 3.4 L Ur Random Sodium Quality VTE Prophylaxis VTE prophylaxis: pharmacologic ordered (Continue home Eliquis.)
--- NOTE | 2025-07-25 16:58 | PC.NURSE ---
Combative. Screaming. Refused medication.
[2025-07-25] MEDS: ACETAMINOPHEN 325 MG TABLET 650 MG PO (17:51)
[2025-07-25 21:34] VITALS: BP 108/86; PULSE 75; RESP 16; TEMP 36.5; O2SAT 100
[2025-07-25] MEDS: NORTRIPTYLINE HCL 10 MG CAPSULE PO (21:37)
[2025-07-26] MEDS: CEPHALEXIN 500 MG CAPSULE 1000 MG PO ×2 (04:45→16:17)
[2025-07-26] MEDS: LEVOTHYROXINE SODIUM 75 MCG TABLET PO (05:49)
[2025-07-26] MEDS: SUCRALFATE 1 GM TABLET PO ×4 (05:49→21:07)
[2025-07-26 05:53] VITALS: BP 95/47; PULSE 84; RESP 18; TEMP 36.9; O2SAT 99
[2025-07-26 05:58] VITALS: BP 100/58
[2025-07-26] MEDS: APIXABAN 5 MG TABLET PO ×2 (08:09→21:06)
[2025-07-26] MEDS: SODIUM CHLORIDE 1 GM TABLET PO ×3 (08:09→16:17)
[2025-07-26 08:10] VITALS: PULSE 84
[2025-07-26] MEDS: CYANOCOBALAMIN 500 MCG TABLET PO (08:10)
[2025-07-26] MEDS: ACETAMINOPHEN 325 MG TABLET 650 MG PO (08:10)
[2025-07-26] MEDS: CHOLECALCIFEROL (VITAMIN D3) 125 MCG (5,000 UNITS) TABLET PO (08:10)
[2025-07-26] MEDS: MAGNESIUM OXIDE 400 MG TABLET PO (08:10)
[2025-07-26] MEDS: ESCITALOPRAM OXALATE 10 MG TABLET PO (08:10)
[2025-07-26] MEDS: METOPROLOL SUCCINATE EXT REL 25 MG TABCR PO (08:10)
[2025-07-26] MEDS: FERROUS SULFATE 325 MG TABLET PO (08:10)
[2025-07-26] MEDS: PANTOPRAZOLE 40 MG TABLET PO (08:10)
[2025-07-26] MEDS: DOCUSATE SODIUM 100 MG CAPSULE PO ×2 (08:11→16:17)
--- NOTE | 2025-07-26 08:15 | PC.NURSE ---
Refused IV site reinsertion.
[2025-07-26 08:40] LABS: Hematocrit 40.1 % (37.0-47.0); Hemoglobin 13.2 g/dL (12.0-15.0); Immature Granulocyte Percent A 0.7 % (0-0.5); Lymphocytes Absolute Auto 0.72 K/mm3 (0.9-3.2); Mean Corpuscular HGB Conc 32.9 g/dl (32-36); Mean Corpuscular Hemoglobin 33.4 pg (26-34); Mean Corpuscular Volume 101.5 fl (80-100); Nucleated Red Blood Cells Absolute Auto 0.000 K/mm3 (0.0-0.012); Nucleated Red Blood Cells Perc 0.0 % (0.0-0.2); Platelet Count Result 269 k/mm3 (150-375); Red Blood Count 3.95 M/mm3 (4.2-5.4); White Blood Count 4.3 K/mm3 (4.5-10.0)
[2025-07-26 08:55] LABS: Alanine Aminotransferase 59 U/L (6-35); Albumin Level 3.6 g/dL (3.5-5.1); Alkaline Phosphatase 434 U/L (38-126); Anion Gap 7 mmol/L (4-12); Aspartate Amino Transferase 101 U/L (14-36); Bilirubin,Total 5.2 mg/dL (0.2-1.3); Blood Urea Nitrogen 36 mg/dL (7-17); Calcium 8.7 mg/dL (8.4-10.2); Carbon Dioxide 23 mmol/L (22-30); Chloride 89 mmol/L (98-107); Estimated CRCL calculation 55 ml/min; Estimated Glomerular Filt Rate 45; Glucose 133 mg/dL (65-110); Magnesium 2.5 mg/dL (1.6-2.3); Potassium 6.0 mmol/L (3.4-5.0); Sodium 119 mmol/L (137-145); Total Protein 7.6 g/dL (6.3-8.2)
[2025-07-26] MEDS: SODIUM ZIRCONIUM CYCLOSILICATE 5 GM POWD.PACK PO ×3 (09:30→21:08)
--- NOTE | 2025-07-26 11:38 | P.CONNP_ITS ---
Assessment and Plan Assessment and plan (1) Hyponatremia: Code(s): E87.1 - Hypo-osmolality and hyponatremia Status: Acute Assessment and Plan: * acute on chronic * baseline sodium seems to run 127 - 136mg/dL in the last year * however, has been in the normal range in the past as well * risk factors for low sodium: * prerenal factors * known CHF/cardiomyopathy * medications: - lexapro (SSRI) - nortriptyline - buspirone - diuretic therapy * thyroid disease * excessive fluid intake * liver cirrhosis * other(?) * started on salt tabs * consider fluid restriction * check TSH, cortisol, SPEP, UPEP and follow-up on serum/urine osmolality * follow trend of repeat sodium levels (2) Acute kidney injury: Code(s): N17.9 - Acute kidney failure, unspecified Status: Acute Assessment and Plan: * noted by trend of labs since 07/22/25 * however, baseline creatinine seems to run around 0.7 - 1.2mg/dl in the last year * creatinine has been relatively stable * due to previous diuretic use(?) versus contrast exposure (CT on 07/21) * however, underlying cardiomyopathy and GMDT may be playing a role * follow trend of repeat labs and UOP (3) Hyperkalemia: Code(s): E87.5 - Hyperkalemia Status: Acute Assessment and Plan: * noted by labs today (on 07/26) * s/p medical management with lokelma * due to use of previous spironolactone use versus fluctuating kidney function(?) * follow trend of K+ (4) CHF exacerbation: Qualifiers: Heart failure type: combined systolic and diastolic Qualified Code(s): I50.43 - Acute on chronic combined systolic (congestive) and diastolic (congestive) heart failure Code(s): I50.9 - Heart failure, unspecified Status: Acute Assessment and Plan: * mild exacerbation noted on admission * last Echo (02/22/25) noted: * left ventricular systolic function is mildly reduced, estimated at 40 - 45% * right ventricular systolic function is normal * mild to moderate mitral valve regurgitation * severe tricuspid valve regurgitation * diuretic therapy on hold due to #1 * Cardiology recommendations noted (5) Atrial fibrillation: Qualifiers: Atrial fibrillation type: permanent Qualified Code(s): I48.21 - Permanent atrial fibrillation Code(s): I48.91 - Unspecified atrial fibrillation Status: Chronic Assessment and Plan: * rate control strategy * on metoprolol * on Eliquis (6) Type 2 diabetes mellitus with hyperglycemia: Qualifiers: 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 Thank you for allowing me to participate in the care of this patient. L History of Present Illness Reason for Consult Consult date: 07/26/25 Reason for consult: hyponatremia and hyperkalemia Chief Complaint Chief complaint: CHF History of Present Illness Narrative: A great majority of the history that I obtained is from review of the electronic medical record as well as discussion with the physician/nurses involved in the patient's care as is difficult to get a full and complete history from the patient due to her lack of cooperation and associated intellectual disability. The patient is a 64-year-old female with a past medical history as outlined below who presented to [facility] Emergency Room due to complaints of weight gain, nausea/vomiting, and constipation. From a what I can gather, the patient's weight gain was approximately 4 lb although I am unclear exactly over what period of time. In spite of this weight gain which was presumably due to fluid retention, she denies any shortness of breath or abdominal distension. She does, as already mentioned above, complaint of nausea and vomiting but once again difficult to ascertain the severity of the symptoms or overall what period of time. She reports significant constipation although mentions that her last bowel movement was the day before presentation to the ER. She apparently lives alone despite her developmental delay/intellectual disability although apparently she had been in several different nursing facilities but was discharge from the possibly due to behavioral issues. In any case, her family feels that she is safe to live on her own despite her cognitive disability. In any case, given the constellation of symptoms as mentioned above, she presented to the emergency room for further assessment. Workup and evaluation emergency room demonstrated the patient to be hemodynamically stable and afebrile. However, she was noted be tachycardic but in no apparent distress. routine blood work demonstrated a white blood cell count of 4.1, hemoglobin 12.3, platelet count of 268, sodium 122, potassium 5.4, bicarb 19, BUN 27, creatinine 0.99, glucose 150, INR of 2.4, lactic acid 1.9, calcium 9.3, magnesium 2.2, total bilirubin 3.7, AST 73, ALT 32, alkaline phosphatase 416 [place] [address], albumin 3.7, lipase 33, and TSH 4.55. Viral testing for influenza, RSV, and COVID-19 were negative. Her chest x-ray showed evidence of congestive heart failure and a left lung nodule. Subsequent CT scan of the chest/abdomen/pelvis demonstrated probable CHF, cirrhotic disease of the liver with a small amount of probable ascites, and probable cystitis. Her urinalysis was suggestive of possible UTI with 1+ protein, 3+ glucose cloudy appearance, trace leukocyte esterase, 6-10 red blood cells, but no bacteria. She was initiated on IV diuretic therapy for her suspected CHF and was subsequently admitted to the hospital for further evaluation and therapy. Since her admission, her mild congestive heart failure has responded to IV diuretic therapy although her renal function has been fluctuating since her hospitalization began. Furthermore, her sodium level has remained on the lower side of normal and has actually worsened to as low as 119 millimoles per L since 07/25/2025 And remains so by labs done this morning. Renal consultation was requested due to her acute on chronic hyponatremia. From review of her records here at [facility], it would seem that her sodium level runs around 127-136 millimoles per L in at least the last year if not longer. In spite of the fact that has run on the lower side of normal, there have been times where it is in the normal range be usually is always on the lower side. The patient does not appear to be cognizant of the issue of her low sodium level or for that matter seem to understand whether not this is been hillary acute or chronic problem despite the fact that I have evidence that it seems to be somewhat of a chronic problem. As noted by I have many other providers as well as nursing staff, the patient is somewhat uncooperative with questioning and exam making it difficult to fully evaluate the issues/ problems that she has. In spite her low sodium level, she does not appear to be symptomatic from it and her mental status appears to be at baseline since her admission to the hospital and from discussion with her family members. Currently, at the time my evaluation, she does not appear to be in any acute distress. Review of Systems 2 Review of Systems: As per HPI. 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 Her sisters come by 3 times a day. Her sisters go home at night while the patient is in bed to sleep. Code status: Full code Years smoked: 3 Smoking status: Former smoker Alcohol intake: never Substance use: never Substance use type: does not use Do You Feel Safe in your Home?: Yes Lack of Transportation: No Lack of Food: Never True Current Housing: I Have Housing Concerned About Future Housing: No Difficulty Paying Gas/Electric Bills: No Difficulty Paying for Meds: No Currently Unemployed: No Education: Grade School Difficulty w/ Childcare or Family Care: No Gender identity (if verbalized by the patient): Female Spiritual care concerns: No Meds Home Medications and Allergies Home Medications ?Medication ?Instructions ?Recorded ?Confirmed ?Type cholecalciferol (vitamin D3) 125 5,000 unit PO DAILY 0 02/23/25 07/21/25 History mcg (5,000 unit) tablet acetaminophen 500 mg capsule 500 mg PO Q6H PRN pain (s alexand[place] 06/05/25 10/12/25 Rx score 1-3) or fever. #90 caps albuterol sulfate 90 mcg/actuation 2 puff inhalation Q 6H PRN 03/14/25 07/21/25 Rx aerosol inhaler shortness of breath or wheez ing #2 grams docusate sodium 100 mg capsule 100 mg PO BID #60 caps 03/14/25 07/21/25 Rx empagliflozin 10 mg tablet 10 mg PO DAILY #30 tabs 03/0307/21/25 Rx (Jardiance) escitalopram oxalate 10 mg tablet 10 mg PO DAILY #30 t abs 03/14/25 07/21/25 Rx ferrous sulfate 325 mg (65 mg 325 mg PO DAILY #30 tabs 03/14/25 07/21/25 Rx iron) tablet (FeroSul) fluticasone propionate 50 1 spray intranasal DAILY PRN 03/14/25 07/21/25 Rx mcg/actuation nasal allergy symptoms/Rhinitis. # 10 mL spray,suspension (Flonase Allergy Relief) hydroxyzine HCl 25 mg tablet 25 mg PO Q4H PRN itching or 03/14/25 07/21/25 Rx anxiety. #30 tabs insulin glargine 100 unit/mL 15 unit (0.15 mL) subcut QHS #10 mL 03/14/25 07/21/25 Rx subcutaneous solution (Lantus U-100 Insulin) levothyroxine 75 mcg tablet 75 mcg PO QAM #30 tabs 03/0307/21/25 Rx lidocaine 4 % topical patch 1 patch topical DAILY PRN back 03/14/25 07/21/25 Rx (Aspercreme (lidocaine)) pain. #30 ea magnesium oxide 400 mg (241.3 mg 400 mg PO DAILY #30 t abs 03/14/25 07/21/25 Rx magnesium) tablet nortriptyline 10 mg capsule 10 mg PO HS #30 caps 03/1407/21/25 Rx omeprazole 20 mg capsule,delayed 20 mg PO DAILY #30 ca ps 03/14/25 07/21/25 Rx release polyethylene glycol 3350 17 gram 17 g PO DAILY PRN con stipation #30 03/14/25 07/21/25 Rx oral powder packet (Miralax) ea sacubitril 24 mg-valsartan 26 mg 0.5 tablet PO BID #60 tabs 03/14/25 07/21/25 Rx tablet (Entresto) apixaban 5 mg tablet (Eliquis) 5 mg PO BID 06/08/25 History ascorbic acid (vitamin C) 500 mg 500 mg PO DAILY 06/0807/21/25 History tablet (Vitamin C) buspirone 10 mg tablet 10 mg PO BID 06/08/25 History insulin aspart U-100 100 unit/mL 15 unit subcut TID 07/21/25 History (3 mL) subcutaneous pen vibegron 75 mg tablet (Gemtesa) 75 mg PO DAILY 5 07/21/25 History cefadroxil 500 mg capsule 1,000 mg PO Q12H 06/10/25 History cyanocobalamin (vitamin B-12) 500 500 mcg PO DAILY 11/0307/21/25 History mcg tablet (B-12 DOTS) metoprolol succinate 25 mg 25 mg PO DAILY 07/21/2510/03 History tablet,extended release 24 hr spironolactone 25 mg tablet 12.5 mg PO DAILY 07/21/25 07/21/25 History Allergies Allergy/AdvReac Type Severity Reaction Status Date / Time Sulfa (Sulfonamide Allergy Mild RASH Verified 07/21/25 14:44 Antibiotics) certain metals Allergy Unknown Unknown Uncoded 03/05/25 23:36 Vital Signs Vital Signs Temp Pulse Resp BP Pulse Ox O2 Del Method 07/26/25 11:33 97.3 F L 83 18 104/75 100 07/26/25 09:21 Room Air 07/26/25 09:06 Room Air 07/26/25 08:10 84 07/26/25 08:00 Room Air 07/26/25 05:58 100/58 L 07/26/25 05:53 98.5 F 84 18 95/47 L 99 07/25/25 22:14 Room Air 07/25/25 21:34 97.7 F 75 16 108/86 100 Exam 2 Narrative: GENERAL APPEARANCE: well developed well nourished female in no acute distress HEENT: normocephalic, atraumatic, normal conjunctiva and sclera, nares patient NECK: no lymphadenopathy, thyromegaly, or JVD MOUTH: normal lips, teeth, and gums CARDIOVASCULAR: RRR, normal S1 and S2, no rub RESPIRATORY: clear anteriorly; decreased at bedside ABDOMEN: soft, nontender, nondistended, positive bowel sounds present EXTREMITIES: no evidence of cyanosis, clubbing, or edema NEUROLOGICAL: difficult to fully assess - patient not cooperative with exam Results Lab Results 07/27/25 05:45 07/27/25 05:45 Lab results: Most recent lab results Calcium 8.7 mg/dL (8.4-10.2) 07/26/25 08:34 Magnesium 2.5 mg/dL (1.6-2.3) H 07/26/25 08:34
[2025-07-26 12:43] VITALS: BP 104/75; PULSE 83; RESP 18; TEMP 36.3; O2SAT 100
--- NOTE | 2025-07-26 13:02 | PM.IMPN ---
Progress Note: A&P Assessment and Plan (1) CHF exacerbation: Qualifiers: Heart failure type: combined systolic and diastolic Qualified Code(s): I50.43 - Acute on chronic combined systolic (congestive) and diastolic (congestive) heart failure Code(s): I50.9 - Heart failure, unspecified Status: Acute Assessment and Plan: Treated with IV Bumex in the ED, with significant improvement in clinical status. COnitneu metoprolol, bumex on hold for Hyponatremia cardiology following (2) Pulmonary hypertension: Code(s): I27.20 - Pulmonary hypertension, unspecified Status: Acute Assessment and Plan: continue above care (3) Nonischemic cardiomyopathy: Code(s): I42.8 - Other cardiomyopathies Status: Acute Assessment and Plan: Cardiology on board, GDMT on hold due to blood pressure, to be resumed when blood pressure allows (4) CHF due to valvular disease: Code(s): I50.9 - Heart failure, unspecified; I38 - Endocarditis, valve unspecified Status: Acute Assessment and Plan: On chronic antibiotic therapy-cephalexin Continue at this time (5) Chronic hypotension: Code(s): I95.89 - Other hypotension Status: Acute Assessment and Plan: Blood pressure medications on hold (6) Hyponatremia: Code(s): E87.1 - Hypo-osmolality and hyponatremia Status: Acute Assessment and Plan: Could be secondary to fluid overload, will repeat sodium with fluid restriction at this time. Unclear if acute or chronic however patient has baseline intellectual disability which may affect her ability to ascertain neurological change. Na improving 119, from 121 on Salt tablets and hold Bumex. 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 Will maintain random blood sugar above 130 given this information Insulin sliding scale at this time (8) Atrial fibrillation: Qualifiers: Atrial fibrillation type: permanent Qualified Code(s): I48.21 - Permanent atrial fibrillation Code(s): I48.91 - Unspecified atrial fibrillation Status: Chronic Assessment and Plan: History of atrial fibrillation on anticoagulation and metoprolol Continue Metoprolol and Eliquis (9) Acute kidney injury: Code(s): N17.9 - Acute kidney failure, unspecified Status: Acute Assessment and Plan: Creatinine mildly elevated to 1.18from 0.99 yesterday, prior baseline was 0.71 in July 04. Could be secondary to hypotension or CHF exacerbation proper, or use of IV Bumex Will trend renal function at this time BUme on hold Cr 1.2 today (10) Anxiety: Code(s): F41.9 - Anxiety disorder, unspecified Status: Acute Assessment and Plan: The patient's sister's report that she becomes very irritable when she is not on her buspirone which is a home medication. Buspirone has been started b.i.d. Plan Hyperkalemia K 6.0 started on Lokelma Nephrology consulted DVT prophylaxis on Eliquis Subjective Date/time seen: 07/26/25 13:02 Interval history: Comfortable at bedside Na still 119 today Awaitign Nephrology input Review of Systems Review of Systems: Unobtainable due to patient's intellectual disability Exam Narrative: Weight 104 kg BMI 34.9 Objective Data Vital Signs Vital Signs: Vital Signs - 24 hr 07/25/25 21:34 07/25/25 22:14 07/26/25 05:53 Temperature 97.7 F 98.5 F Pulse Rate 75 84 Respiratory Rate 16 18 Blood Pressure 108/86 95/47 L Pulse Oximetry 100 99 Oxygen Delivery Room Air 07/26/25 05:58 07/26/25 08:00 07/26/25 08:10 Temperature Pulse Rate 84 Respiratory Rate Blood Pressure 100/58 L Pulse Oximetry Oxygen Delivery Room Air 07/26/25 09:06 07/26/25 09:21 07/26/25 12:43 Temperature 97.3 F L Pulse Rate 83 Respiratory Rate 18 Blood Pressure 104/75 Pulse Oximetry 100 Oxygen Delivery Room Air Room Air Intake/Output Intake/Output: Intake & Output 07/23/25 07/24/25 07/25/25 07/26/25 23:59 23:59 23:59 23:59 Intake Total 810 1352 680 560 Output Total 150 Balance 810 1352 530 560 Meds/Results Medications: Active Medications Generic Name Dose Route Start Last Admin Trade Name Freq PRN Reason Stop Dose Admin Acetaminophen 650 mg 07/22/25 00:30 07/26/25 08:10 Acetaminophen 325 Mg Tablet PO 650 mg Q6H PRN Administration Mild Pain (1-3) or Fever Albuterol 2 puff 07/22/25 03:53 Albuterol Sulfate (*Sp) Aerosol 1 Puff INHALATION Q6H PRN Shortness Of Breath Or Wheezing Apixaban 5 mg 07/22/25 09:00 07/26/25 08:09 Apixaban 5 Mg Tablet PO 5 mg Q12HR [facility] Administration Bumetanide 1 mg 07/25/25 09:00 07/25/25 08:47 Bumetanide 1 Mg Tablet PO 1 mg On Hold: 07/25/25 11:52 DAILY G[facility]INA Administration Buspirone HCl 10 mg 07/22/25 09:00 07/26/25 08:09 Buspirone Hcl 10 Mg Tablet PO 10 mg Q12HR [facility] Administration Cephalexin HCl 1,000 mg 07/22/25 04:25 07/26/25 04:45 Cephalexin 500 Mg Capsule PO 1,000 mg Q12H G[facility]INA Administration Cyanocobalamin 500 mcg 07/22/25 09:00 07/26/25 08:10 Cyanocobalamin 500 Mcg Tablet PO 500 mcg DAILY [facility] Administration Dextrose 12.5 gm 07/21/25 22:56 07/25/25 04:00 Dextrose 50% 25 Gm/50 Ml Syringe IV PUSH 12.5 gm PRN PRN Administration Hypoglycemia Protocol Docusate Sodium 100 mg 07/22/25 09:00 07/26/25 08:11 Docusate Sodium 100 Mg Capsule PO 100 mg BID G[facility]INA Administration Empagliflozin 10 mg 07/22/25 09:00 Empagliflozin 10 Mg Tablet PO On Hold: 07/22/25 09:00 DAILY G[facility] Escitalopram Oxalate 10 mg 07/22/25 09:00 07/26/25 08:10 Escitalopram Oxalate 10 Mg Tablet PO 10 mg DAILY [facility] Administration Famotidine 20 mg 07/22/25 09:00 07/26/25 09:20 Famotidine 20 Mg/2 Ml Vial IV PUSH Not Given Q12HR [facility] Ferrous Sulfate 325 mg 07/22/25 09:00 07/26/25 08:10 Ferrous Sulfate 325 Mg Tablet PO 325 mg DAILY [facility] Administration Fluticasone Propionate 1 spray 07/22/25 03:53 Fluticasone Propionate 0.05% Na Spr 16 Gm Btl (*Bkc) NASAL DAILY PRN allergy symptoms/Rhinitis. Glucagon 1 mg 07/21/25 22:56 Glucagon For Inj 1 Mg Vial IM PRN PRN Hypoglycemia Protocol Glucose 15 gm 07/21/25 22:56 Glucose Oral Gel 15 Gm Of Glucse In 37.5 Gm Tube PO PRN PRN Hypoglycemia Protocol Hydroxyzine HCl 25 mg 07/22/25 03:53 07/26/25 08:10 Hydroxyzine Hcl 25 Mg Tablet PO 25 mg Q4H PRN Administration itching or anxiety. Dextrose 1,000 mls @ 100 mls/hr 07/21/25 22:56 Dextrose 5% 1,000 Ml IVPB PRN PRN Hypoglycemia Protocol Insulin Aspart 3 - 6 units 07/22/25 08:00 07/24/25 16:46 Insulin Aspart (*Bkc) 100 Units/Ml SUB-Q Not Given On Hold: 07/25/25 04:22 TIDWM [facility] Protocol Insulin Aspart 10 units 07/22/25 08:00 07/24/25 18:22 Insulin Aspart (*Bkc) 100 Units/Ml SUB-Q 10 units On Hold: 07/25/25 04:21 TIDWM [facility] Administration Comment: Pt hypoglycemic overnight Insulin Glargine 10 units 07/22/25 21:00 07/24/25 23:22 Insulin Glargine (*Bkc) 100 Units/Ml SUB-Q Not Given On Hold: 07/25/25 [facility] Levothyroxine Sodium 75 mcg 07/22/25 06:30 07/26/25 05:49 Levothyroxine Sodium 75 Mcg Tablet PO 75 mcg DAILY@0630 [facility] Administration Lidocaine 1 patch 07/22/25 04:21 Lidocaine 5% Patch TRANSDERM DAILY PRN back pain. Magnesium Oxide 400 mg 07/22/25 09:00 07/26/25 08:10 Magnesium Oxide 400 Mg Tablet PO 400 mg DAILY [facility] Administration Metoprolol Succinate 25 mg 07/22/25 09:00 07/26/25 08:10 Metoprolol Succinate Ext Rel 25 Mg Tabcr PO 25 mg DAILY [facility] Administration Nortriptyline HCl 10 mg 07/22/25 21:00 07/25/25 21:37 Nortriptyline Hcl 10 Mg Capsule PO 10 mg HS [facility]INA Administration Pantoprazole Sodium 40 mg 07/22/25 09:00 07/26/25 08:10 Pantoprazole 40 Mg Tablet PO 40 mg QAM [facility] Administration Polyethylene Glycol 17 gm 07/22/25 03:53 Polyethylene Glycol 3350 17 Gm Powd.Pack PO DAILY PRN Constipation Sodium Chloride 1 gm 07/24/25 09:00 07/26/25 12:57 Sodium Chloride 1 Gm Tablet PO 1 gm TID G[facility]INA Administration Sodium Zirconium Cyclosilicate 5 gm 07/26/25 10:00 07/26/25 09:30 Sodium Zirconium Cyclosilicate 5 Gm Powd.Pack PO 5 gm TID@1000,1500,2200 [facility] Administration Sucralfate 1 gm 07/22/25 11:30 07/26/25 11:19 Sucralfate 1 Gm Tablet PO 1 gm ACHS [facility] Administration Vitamin D 125 mcg 07/22/25 09:00 07/26/25 08:10 Cholecalciferol (Vitamin D3) 125 Mcg (5,000 Units) Tablet PO 125 mcg DAILY [facility] Administration Radiology Results: ITS Impressions Chest X-Ray 07/21/25 16:18 Impression: CHF. Left lung nodule. CT chest with contrast recommended Chest/Abdomen/Pelvis CT 07/21/25 17:48 IMPRESSION: 1. Probable CHF. 2. Cirrhotic disease of the liver with small amount of probable ascites. 3. Probable cystitis. Labs Labs: Laboratory Results - last 24 hr 07/25/25 07/25/25 07/26/25 16:40 21:53 00:49 WBC RBC Hgb Hct MCV MCH MCHC RDW Plt Count MPV Immature Gran % (Auto) Neut % (Auto) Lymph % (Auto) [place] % (Auto) Eos % (Auto) Baso % (Auto) Lymph # (Auto) [place] # (Auto) Eos # (Auto) Baso # (Auto) Abs Immat Gran (auto) Absolute Neuts (auto) Absolute Nucleated RBC Nucleated RBC % Sodium Potassium Chloride Carbon Dioxide Anion Gap BUN Creatinine Estim Creat Clear Calc Estimated GFR Glucose POC Capillary Glucose 150 H 185 H 180 H Calcium Magnesium Total Bilirubin AST ALT Alkaline Phosphatase Total Protein Albumin 07/26/25 07/26/25 07/26/25 05:58 08:06 08:34 WBC 4.3 L RBC 3.95 L Hgb 13.2 Hct 40.1 MCV 101.5 H MCH 33.4 MCHC 32.9 RDW 16.7 H Plt Count 269 MPV 9.1 Immature Gran % (Auto) 0.7 H Neut % (Auto) 66.1 Lymph % (Auto) 16.9 L [place] % (Auto) 10.5 H Eos % (Auto) 4.2 Baso % (Auto) 1.6 H Lymph # (Auto) 0.72 L [place] # (Auto) 0.5 Eos # (Auto) 0.2 Baso # (Auto) 0.1 Abs Immat Gran (auto) 0.03 Absolute Neuts (auto) 2.8 Absolute Nucleated RBC 0.000 Nucleated RBC % 0.0 Sodium 119 L* Potassium 6.0 H* Chloride 89 L Carbon Dioxide 23 Anion Gap 7 BUN 36 H Creatinine 1.20 H Estim Creat Clear Calc 55 Estimated GFR 45 L Glucose 133 H POC Capillary Glucose 143 H 162 H Calcium 8.7 Magnesium 2.5 H Total Bilirubin 5.2 H AST 101 H ALT 59 H Alkaline Phosphatase 434 H Total Protein 7.6 Albumin 3.6 07/26/25 12:08 WBC RBC Hgb Hct MCV MCH MCHC RDW Plt Count MPV Immature Gran % (Auto) Neut % (Auto) Lymph % (Auto) [place] % (Auto) Eos % (Auto) Baso % (Auto) Lymph # (Auto) [place] # (Auto) Eos # (Auto) Baso # (Auto) Abs Immat Gran (auto) Absolute Neuts (auto) Absolute Nucleated RBC Nucleated RBC % Sodium Potassium Chloride Carbon Dioxide Anion Gap BUN Creatinine Estim Creat Clear Calc Estimated GFR Glucose POC Capillary Glucose 223 H Calcium Magnesium Total Bilirubin AST ALT Alkaline Phosphatase Total Protein Albumin Quality VTE Prophylaxis VTE prophylaxis: pharmacologic ordered (Continue home Eliquis.)
[2025-07-26] MEDS: FUROSEMIDE 10 MG TABLET PO (16:24)
[2025-07-26] MEDS: NORTRIPTYLINE HCL 10 MG CAPSULE PO (21:06)
[2025-07-26 21:11] LABS: Anion Gap 9 mmol/L (4-12); Blood Urea Nitrogen 36 mg/dL (7-17); Calcium 8.7 mg/dL (8.4-10.2); Carbon Dioxide 22 mmol/L (22-30); Chloride 88 mmol/L (98-107); Estimated CRCL calculation 56 ml/min; Estimated Glomerular Filt Rate 46; Glucose 237 mg/dL (65-110); Potassium 4.7 mmol/L (3.4-5.0); Sodium 119 mmol/L (137-145)
[2025-07-26 21:54] VITALS: BP 90/62; PULSE 77; RESP 16; TEMP 36.3; O2SAT 98
[2025-07-26] MEDS: INSULIN ASPART (*BKC) 100 UNITS/ML SUB-Q (23:04)
[2025-07-27] MEDS: SUCRALFATE 1 GM TABLET PO ×2 (06:02→21:56)
[2025-07-27] MEDS: LEVOTHYROXINE SODIUM 75 MCG TABLET PO (06:02)
[2025-07-27 06:31] VITALS: BP 108/82; PULSE 70; RESP 16; TEMP 36.1; O2SAT 98
[2025-07-27 06:41] LABS: Hematocrit 38.7 % (37.0-47.0); Hemoglobin 12.9 g/dL (12.0-15.0); Immature Granulocyte Percent A 0.7 % (0-0.5); Lymphocytes Absolute Auto 0.84 K/mm3 (0.9-3.2); Mean Corpuscular HGB Conc 33.3 g/dl (32-36); Mean Corpuscular Hemoglobin 33.7 pg (26-34); Mean Corpuscular Volume 101.0 fl (80-100); Nucleated Red Blood Cells Absolute Auto 0.000 K/mm3 (0.0-0.012); Nucleated Red Blood Cells Perc 0.0 % (0.0-0.2); Platelet Count Result 277 k/mm3 (150-375); Red Blood Count 3.83 M/mm3 (4.2-5.4); White Blood Count 4.6 K/mm3 (4.5-10.0)
[2025-07-27 07:02] LABS: Alanine Aminotransferase 59 U/L (6-35); Albumin Level 3.7 g/dL (3.5-5.1); Alkaline Phosphatase 413 U/L (38-126); Anion Gap 10 mmol/L (4-12); Aspartate Amino Transferase 79 U/L (14-36); Bilirubin,Total 5.6 mg/dL (0.2-1.3); Blood Urea Nitrogen 38 mg/dL (7-17); Calcium 8.7 mg/dL (8.4-10.2); Carbon Dioxide 21 mmol/L (22-30); Chloride 89 mmol/L (98-107); Estimated CRCL calculation 56 ml/min; Estimated Glomerular Filt Rate 47; Glucose 128 mg/dL (65-110); Magnesium 2.5 mg/dL (1.6-2.3); Potassium 5.0 mmol/L (3.4-5.0); Sodium 120 mmol/L (137-145); Total Protein 7.8 g/dL (6.3-8.2)
--- NOTE | 2025-07-27 07:27 | PC.NURSE ---
Patient refused to lay in bed, yelled, cried when given option to sit in chair she repeated, I don't want to lay down. Explained she would not have to lay down, but still refused either choice. Pain medications and snack offered, still declined. Patient agitated, restless, refused and non-compliant with 0430 medications due to lack of cognitive ability. Sat in room with pt, dimmed lights, offered diet soft drink, tv on music channel, she was able to re-direct/ calmed down. Call light within reach with personal belongings within reach, bed in lowest position, fall precaution bed alarm set. Vital signs stable.
--- NOTE | 2025-07-27 09:32 | PC.NURSE ---
BROWN Henderson notified that patient refused to take any medications.
--- NOTE | 2025-07-27 10:15 | P.PNNP_ITS ---
Progress Note: A&P Assessment and Plan (1) Hyponatremia: Code(s): E87.1 - Hypo-osmolality and hyponatremia Status: Acute Assessment and Plan: * acute on chronic * baseline sodium seems to run 127 - 136mg/dL in the last year * however, has been in the normal range in the past as well * risk factors for low sodium: * prerenal factors * known CHF/cardiomyopathy * medications: - lexapro (SSRI) - nortriptyline - buspirone - diuretic therapy * thyroid disease * excessive fluid intake * liver cirrhosis * other(?) * started on salt tabs * add low dose lasix given CXR findings * however, her refusal to take medications is also not helping this issue * consider 3% saline but hesitant to give due to #4/cardiomyopathy * consider fluid restriction (but does not appear to be drinking that much) * reorder TSH, cortisol, SPEP, UPEP and serum/urine osmolality * follow trend of repeat sodium levels (2) Acute kidney injury: Code(s): N17.9 - Acute kidney failure, unspecified Status: Acute Assessment and Plan: * noted by trend of labs since 07/22/25 * however, baseline creatinine seems to run around 0.7 - 1.2mg/dl in the last year * creatinine has been relatively stable * due to previous diuretic use(?) versus contrast exposure (CT on 07/21) * however, underlying cardiomyopathy and GMDT may be playing a role * follow trend of repeat labs and UOP (3) Hyperkalemia: Code(s): E87.5 - Hyperkalemia Status: Acute Assessment and Plan: * noted by labs today (on 07/26) * s/p medical management with lokelma * due to use of previous spironolactone use versus fluctuating kidney function(?) * follow trend of K+ (4) CHF exacerbation: Qualifiers: Heart failure type: combined systolic and diastolic Qualified Code(s): I50.43 - Acute on chronic combined systolic (congestive) and diastolic (congestive) heart failure Code(s): I50.9 - Heart failure, unspecified Status: Acute Assessment and Plan: * mild exacerbation noted on admission * last Echo (02/22/25) noted: * left ventricular systolic function is mildly reduced, estimated at 40 - 45% * right ventricular systolic function is normal * mild to moderate mitral valve regurgitation * severe tricuspid valve regurgitation * diuretic therapy on hold due to #1 * started on low dose lasix * Cardiology recommendations noted (5) Atrial fibrillation: Qualifiers: Atrial fibrillation type: permanent Qualified Code(s): I48.21 - Permanent atrial fibrillation Code(s): I48.91 - Unspecified atrial fibrillation Status: Chronic Assessment and Plan: * rate control strategy * on metoprolol * on Eliquis (6) Type 2 diabetes mellitus with hyperglycemia: Qualifiers: Diabetes mellitus senior living insulin use: with intermediate school teacher use Qualified Code(s): E11.65 - Type 2 diabetes mellitus with hyperglycemia; Z79.4 - terminal gauger supervisor (current) use of insulin Code(s): E11.65 - Type 2 diabetes mellitus with hyperglycemia Status: Chronic Assessment and Plan: * follow accu-cheks * glycemic control per hospitalist Will continue to follow. L Subjective Date/time seen: 07/27/25 10:15 Interval history: Follow-up for acute on chronic hyponatremia. Mild improvement in sodium level as noted by trend of labs; nursing reports agitation, combativeness at times, along with restlessness earlier this morning and has been refusing medications as well; no other acute complaints voiced but not very conversant with me today. Exam 2 Narrative: General: WD/WN female in NAD Heart: normal S1 and S2; no rub Lungs: clear anteriolry. decreased at bases Abdomen: soft, nontender, nondistended, positive bowel sounds Extremities: no cyanosis or clubbing; no edema Skin: warm and dry Objective Data Vital Signs Vital Signs: Vital Signs Temp Pulse Resp BP Pulse Ox O2 Del Method 07/27/25 10:11 97.5 F L 90 18 109/68 100 07/27/25 08:00 Room Air 07/27/25 06:31 96.9 F L 70 16 108/82 98 07/26/25 21:54 97.3 F L 77 16 90/62 L 98 07/26/25 21:22 Room Air Intake/Output Intake/Output: Intake & Output 07/24/25 07/25/25 07/26/25 07/27/25 23:59 23:59 23:59 23:59 Intake Total 1352 680 800 540 Output Total 150 Balance 1352 530 800 540 Meds/Results Medications: Active Medications Generic Name Dose Route Start Last Admin Trade Name Freq PRN Reason Stop Dose Admin Acetaminophen 650 mg 07/22/25 00:30 07/26/25 08:10 Acetaminophen 325 Mg Tablet PO 650 mg Q6H PRN Administration Mild Pain (1-3) or Fever Albuterol 2 puff 07/22/25 03:53 Albuterol Sulfate (*Sp) Aerosol 1 Puff INHALATION Q6H PRN Shortness Of Breath Or Wheezing Apixaban 5 mg 07/22/25 09:00 07/27/25 09:26 Apixaban 5 Mg Tablet PO Not Given Q12HR GALINA Bumetanide 1 mg 07/25/25 09:00 07/25/25 08:47 Bumetanide 1 Mg Tablet PO 1 mg On Hold: 07/25/25 11:52 DAILY GALINA Administration Buspirone HCl 10 mg 07/22/25 09:00 07/27/25 09:26 Buspirone Hcl 10 Mg Tablet PO Not Given Q12HR [facility] Cephalexin HCl 1,000 mg 07/22/25 04:25 07/27/25 03:52 Cephalexin 500 Mg Capsule PO Not Given Q12H G[facility] Cyanocobalamin 500 mcg 07/22/25 09:00 07/27/25 09:26 Cyanocobalamin 500 Mcg Tablet PO Not Given DAILY [facility] Dextrose 12.5 gm 07/21/25 22:56 07/25/25 04:00 Dextrose 50% 25 Gm/50 Ml Syringe IV PUSH 12.5 gm PRN PRN Administration Hypoglycemia Protocol Docusate Sodium 100 mg 07/22/25 09:00 07/27/25 09:26 Docusate Sodium 100 Mg Capsule PO Not Given BID GALINA Empagliflozin 10 mg 07/22/25 09:00 Empagliflozin 10 Mg Tablet PO On Hold: 07/22/25 09:00 DAILY [facility] Escitalopram Oxalate 10 mg 07/22/25 09:00 07/27/25 09:26 Escitalopram Oxalate 10 Mg Tablet PO Not Given DAILY [facility] Famotidine 20 mg 07/22/25 09:00 07/27/25 09:27 Famotidine 20 Mg/2 Ml Vial IV PUSH Not Given Q12HR [facility] Ferrous Sulfate 325 mg 07/22/25 09:00 07/27/25 09:27 Ferrous Sulfate 325 Mg Tablet PO Not Given DAILY [facility] Fluticasone Propionate 1 spray 07/22/25 03:53 Fluticasone Propionate 0.05% Na Spr 16 Gm Btl (*Bkc) NASAL DAILY PRN allergy symptoms/Rhinitis. Furosemide 10 mg 07/26/25 17:00 07/27/25 09:27 Furosemide 10 Mg Tablet PO Not Given BID [facility]INA Glucagon 1 mg 07/21/25 22:56 Glucagon For Inj 1 Mg Vial IM PRN PRN Hypoglycemia Protocol Glucose 15 gm 07/21/25 22:56 Glucose Oral Gel 15 Gm Of Glucse In 37.5 Gm Tube PO PRN PRN Hypoglycemia Protocol Hydroxyzine HCl 25 mg 07/22/25 03:53 07/26/25 21:06 Hydroxyzine Hcl 25 Mg Tablet PO 25 mg Q4H PRN Administration itching or anxiety. Dextrose 1,000 mls @ 100 mls/hr 07/21/25 22:56 Dextrose 5% 1,000 Ml IVPB PRN PRN Hypoglycemia Protocol Insulin Aspart 3 - 6 units 07/22/25 08:00 07/24/25 16:46 Insulin Aspart (*Bkc) 100 Units/Ml SUB-Q Not Given On Hold: 07/25/25 04:22 TIDWM [facility] Protocol Insulin Aspart 10 units 07/22/25 08:00 07/24/25 18:22 Insulin Aspart (*Bkc) 100 Units/Ml SUB-Q 10 units On Hold: 07/25/25 04:21 TIDWM [facility] Administration Comment: Pt hypoglycemic overnight Insulin Glargine 10 units 07/22/25 21:00 07/24/25 23:22 Insulin Glargine (*Bkc) 100 Units/Ml SUB-Q Not Given On Hold: 07/25/25 04:22 QHS [facility] Levothyroxine Sodium 75 mcg 07/22/25 06:30 07/27/25 06:02 Levothyroxine Sodium 75 Mcg Tablet PO 75 mcg DAILY@0630 [facility] Administration Lidocaine 1 patch 07/22/25 04:21 Lidocaine 5% Patch TRANSDERM DAILY PRN back pain. Magnesium Oxide 400 mg 07/22/25 09:00 07/27/25 09:27 Magnesium Oxide 400 Mg Tablet PO Not Given DAILY [facility] Metoprolol Succinate 25 mg 07/22/25 09:00 07/27/25 09:28 Metoprolol Succinate Ext Rel 25 Mg Tabcr PO Not Given DAILY [facility] Nortriptyline HCl 10 mg 07/22/25 21:00 07/26/25 21:06 Nortriptyline Hcl 10 Mg Capsule PO 10 mg HS [facility] Administration Pantoprazole Sodium 40 mg 07/22/25 09:00 07/27/25 09:28 Pantoprazole 40 Mg Tablet PO Not Given QAM [facility] Polyethylene Glycol 17 gm 07/22/25 03:53 Polyethylene Glycol 3350 17 Gm Powd.Pack PO DAILY PRN Constipation Sodium Chloride 1 gm 07/24/25 09:00 07/27/25 13:19 Sodium Chloride 1 Gm Tablet PO Not Given TID [facility] Sodium Zirconium Cyclosilicate 5 gm 07/26/25 10:00 07/27/25 10:56 Sodium Zirconium Cyclosilicate 5 Gm Powd.Pack PO Not Given TID@1000,1500,2200 [facility] Sucralfate 1 gm 07/22/25 11:30 07/27/25 13:19 Sucralfate 1 Gm Tablet PO Not Given ACHS [facility] Vitamin D 125 mcg 07/22/25 09:00 07/27/25 09:26 Cholecalciferol (Vitamin D3) 125 Mcg (5,000 Units) Tablet PO Not Given DAILY [facility] Radiology Results: ITS Impressions Chest/Abdomen/Pelvis CT 07/21/25 17:48 IMPRESSION: 1. Probable CHF. 2. Cirrhotic disease of the liver with small amount of probable ascites. 3. Probable cystitis. Chest X-Ray 07/27/25 08:21 IMPRESSION: 1. Left lower lobe atelectasis and/or pleural effusion. 2. Mild interstitial pulmonary edema. Labs Labs: Laboratory Tests 07/27/25 05:45 07/27/25 05:45 Calcium 8.7 Magnesium 2.5 H Total Bilirubin 5.6 H AST 79 H ALT 59 H Alkaline Phosphatase 413 H Total Protein 7.8 Albumin 3.7
--- NOTE | 2025-07-27 10:57 | PC.NURSE ---
Patient refusing to eat or take medications. Nurse Beatriz notified.
[2025-07-27 12:11] VITALS: BP 109/68; PULSE 90; RESP 18; TEMP 36.4; O2SAT 100
--- NOTE | 2025-07-27 15:55 | P.PNIM_ITS ---
Progress Note: A&P Assessment and Plan (1) CHF exacerbation: Qualifiers: Heart failure type: combined systolic and diastolic Qualified Code(s): I50.43 - Acute on chronic combined systolic (congestive) and diastolic (congestive) heart failure Code(s): I50.9 - Heart failure, unspecified Status: Acute Assessment and Plan: Treated with IV Bumex in the ED, with significant improvement in clinical status. COnitneu metoprolol, bumex on hold for Hyponatremia cardiology following (2) Pulmonary hypertension: Code(s): I27.20 - Pulmonary hypertension, unspecified Status: Acute Assessment and Plan: continue above care (3) Nonischemic cardiomyopathy: Code(s): I42.8 - Other cardiomyopathies Status: Acute Assessment and Plan: Cardiology on board, GDMT on hold due to blood pressure, to be resumed when blood pressure allows (4) CHF due to valvular disease: Code(s): I50.9 - Heart failure, unspecified; I38 - Endocarditis, valve unspecified Status: Acute Assessment and Plan: On chronic antibiotic therapy-cephalexin Continue at this time (5) Chronic hypotension: Code(s): I95.89 - Other hypotension Status: Acute Assessment and Plan: Blood pressure medications on hold (6) Hyponatremia: Code(s): E87.1 - Hypo-osmolality and hyponatremia Status: Acute Assessment and Plan: Could be secondary to fluid overload, will repeat sodium with fluid restriction at this time. Unclear if acute or chronic however patient has baseline intellectual disability which may affect her ability to ascertain neurological change. Na improving 120, from 121 Continue Salt tablets and Lasix per Nephrology Nephrology following (7) Type 2 diabetes mellitus with hyperglycemia: Qualifiers: Diabetes mellitus [facility] insulin use: with technician terminal and repeater use Qualified Code(s): E11.65 - Type 2 diabetes mellitus with hyperglycemia; Z79.4 - [facility] (current) use of insulin Code(s): E11.65 - Type 2 diabetes mellitus with hyperglycemia Status: Acute Assessment and Plan: Spoke with patient's sisters who did mention patient gets more irritable when her blood sugar is below 130. Will maintain random blood sugar above 130 given this information Insulin sliding scale at this time (8) Atrial fibrillation: Qualifiers: Atrial fibrillation type: permanent Qualified Code(s): I48.21 - Permanent atrial fibrillation Code(s): I48.91 - Unspecified atrial fibrillation Status: Chronic Assessment and Plan: History of atrial fibrillation on anticoagulation and metoprolol Continue Metoprolol and Eliquis (9) Acute kidney injury: Code(s): N17.9 - Acute kidney failure, unspecified Status: Acute Assessment and Plan: Creatinine mildly elevated to 1.18from 0.99 yesterday, prior baseline was 0.71 in July 04. Could be secondary to hypotension or CHF exacerbation proper, or use of IV Bumex Will trend renal function at this time BUme on hold Cr 1.17 today (10) Anxiety: Code(s): F41.9 - Anxiety disorder, unspecified Status: Acute Assessment and Plan: The patient's sister's report that she becomes very irritable when she is not on her buspirone which is a home medication. Buspirone has been started b.i.d. Plan Hyperkalemia K 5.0 S/p [facility] Nephrology following DVT prophylaxis on Eliquis Subjective Date/time seen: 07/27/25 15:55 Interval history: Comfortable at bedside Nephrology managing hyponatremia Review of Systems Review of Systems: Unobtainable due to patient's intellectual disability Exam Narrative: Weight 104 kg BMI 34.9 Objective Data Vital Signs Vital Signs: Vital Signs - 24 hr 07/26/25 21:22 07/26/25 21:54 07/27/25 06:31 Temperature 97.3 F L 96.9 F L Pulse Rate 77 70 Respiratory Rate 16 16 Blood Pressure 90/62 L 108/82 Pulse Oximetry 98 98 Oxygen Delivery Room Air 07/27/25 08:00 07/27/25 12:11 Temperature 97.5 F L Pulse Rate 90 Respiratory Rate 18 Blood Pressure 109/68 Pulse Oximetry 100 Oxygen Delivery Room Air Intake/Output Intake/Output: Intake & Output 07/24/25 07/25/25 07/26/25 07/27/25 23:59 23:59 23:59 23:59 Intake Total 1352 680 800 540 Output Total 150 Balance 1352 530 800 540 Meds/Results Medications: Active Medications Generic Name Dose Route Start Last Admin Trade Name Freq PRN Reason Stop Dose Admin Acetaminophen 650 mg 07/22/25 00:30 07/26/25 08:10 Acetaminophen 325 Mg Tablet PO 650 mg Q6H PRN Administration Mild Pain (1-3) or Fever Albuterol 2 puff 07/22/25 03:53 Albuterol Sulfate (*Sp) Aerosol 1 Puff INHALATION Q6H PRN Shortness Of Breath Or Wheezing Apixaban 5 mg 07/22/25 09:00 07/27/25 09:26 Apixaban 5 Mg Tablet PO Not Given Q12HR [facility] Bumetanide 1 mg 07/25/25 09:00 07/25/25 08:47 Bumetanide 1 Mg Tablet PO 1 mg On Hold: 07/25/25 11:52 DAILY GALINA Administration Buspirone HCl 10 mg 07/22/25 09:00 07/27/25 09:26 Buspirone Hcl 10 Mg Tablet PO Not Given Q12HR [facility] Cephalexin HCl 1,000 mg 07/22/25 04:25 07/27/25 15:43 Cephalexin 500 Mg Capsule PO Not Given Q12H [facility] Cyanocobalamin 500 mcg 07/22/25 09:00 07/27/25 09:26 Cyanocobalamin 500 Mcg Tablet PO Not Given DAILY [facility] Dextrose 12.5 gm 07/21/25 22:56 07/25/25 04:00 Dextrose 50% 25 Gm/50 Ml Syringe IV PUSH 12.5 gm PRN PRN Administration Hypoglycemia Protocol Docusate Sodium 100 mg 07/22/25 09:00 07/27/25 09:26 Docusate Sodium 100 Mg Capsule PO Not Given BID [facility] Empagliflozin 10 mg 07/22/25 09:00 Empagliflozin 10 Mg Tablet PO On Hold: 07/22/25 09:00 DAILY [facility] Escitalopram Oxalate 10 mg 07/22/25 09:00 07/27/25 09:26 Escitalopram Oxalate 10 Mg Tablet PO Not Given DAILY [facility] Famotidine 20 mg 07/22/25 09:00 07/27/25 09:27 Famotidine 20 Mg/2 Ml Vial IV PUSH Not Given Q12HR [facility] Ferrous Sulfate 325 mg 07/22/25 09:00 07/27/25 09:27 Ferrous Sulfate 325 Mg Tablet PO Not Given DAILY [facility] Fluticasone Propionate 1 spray 07/22/25 03:53 Fluticasone Propionate 0.05% Na Spr 16 Gm Btl (*Bkc) NASAL DAILY PRN allergy symptoms/Rhinitis. Furosemide 10 mg 07/26/25 17:00 07/27/25 09:27 Furosemide 10 Mg Tablet PO Not Given BID [facility] Glucagon 1 mg 07/21/25 22:56 Glucagon For Inj 1 Mg Vial IM PRN PRN Hypoglycemia Protocol Glucose 15 gm 07/21/25 22:56 Glucose Oral Gel 15 Gm Of Glucse In 37.5 Gm Tube PO PRN PRN Hypoglycemia Protocol Hydroxyzine HCl 25 mg 07/22/25 03:53 07/26/25 21:06 Hydroxyzine Hcl 25 Mg Tablet PO 25 mg Q4H PRN Administration itching or anxiety. Dextrose 1,000 mls @ 100 mls/hr 07/21/25 22:56 Dextrose 5% 1,000 Ml IVPB PRN PRN Hypoglycemia Protocol Insulin Aspart 3 - 6 units 07/22/25 08:00 07/24/25 16:46 Insulin Aspart (*Bkc) 100 Units/Ml SUB-Q Not Given On Hold: 07/25/25 04:22 TIDWM [facility] Protocol Insulin Aspart 10 units 07/22/25 08:00 07/24/25 18:22 Insulin Aspart (*Bkc) 100 Units/Ml SUB-Q 10 units On Hold: 07/25/25 04:21 TIDWM [facility] Administration Comment: Pt hypoglycemic overnight Insulin Glargine 10 units 07/22/25 21:00 07/24/25 23:22 Insulin Glargine (*Bkc) 100 Units/Ml SUB-Q Not Given On Hold: 07/25/25 04:22 QHS [facility] Levothyroxine Sodium 75 mcg 07/22/25 06:30 07/27/25 06:02 Levothyroxine Sodium 75 Mcg Tablet PO 75 mcg DAILY@0630 [facility] Administration Lidocaine 1 patch 07/22/25 04:21 Lidocaine 5% Patch TRANSDERM DAILY PRN back pain. Magnesium Oxide 400 mg 07/22/25 09:00 07/27/25 09:27 Magnesium Oxide 400 Mg Tablet PO Not Given DAILY [facility] Metoprolol Succinate 25 mg 07/22/25 09:00 07/27/25 09:28 Metoprolol Succinate Ext Rel 25 Mg Tabcr PO Not Given DAILY [facility] Nortriptyline HCl 10 mg 07/22/25 21:00 07/26/25 21:06 Nortriptyline Hcl 10 Mg Capsule PO 10 mg HS [facility] Administration Pantoprazole Sodium 40 mg 07/22/25 09:00 07/27/25 09:28 Pantoprazole 40 Mg Tablet PO Not Given QAM [facility] Polyethylene Glycol 17 gm 07/22/25 03:53 Polyethylene Glycol 3350 17 Gm Powd.Pack PO DAILY PRN Constipation Sodium Chloride 1 gm 07/24/25 09:00 07/27/25 13:19 Sodium Chloride 1 Gm Tablet PO Not Given TID [facility] Sodium Zirconium Cyclosilicate 5 gm 07/26/25 10:00 07/27/25 15:43 Sodium Zirconium Cyclosilicate 5 Gm Powd.Pack PO Not Given TID@1000,1500,2200 [facility] Sucralfate 1 gm 07/22/25 11:30 07/27/25 15:43 Sucralfate 1 Gm Tablet PO Not Given ACHS [facility] Vitamin D 125 mcg 07/22/25 09:00 07/27/25 09:26 Cholecalciferol (Vitamin D3) 125 Mcg (5,000 Units) Tablet PO Not Given DAILY [facility] Radiology Results: ITS Impressions Chest/Abdomen/Pelvis CT 07/21/25 17:48 IMPRESSION: 1. Probable CHF. 2. Cirrhotic disease of the liver with small amount of probable ascites. 3. Probable cystitis. Chest X-Ray 07/27/25 08:21 IMPRESSION: 1. Left lower lobe atelectasis and/or pleural effusion. 2. Mild interstitial pulmonary edema. Labs Labs: Laboratory Results - last 24 hr 07/26/25 07/26/25 07/26/25 16:53 19:38 20:39 WBC RBC Hgb Hct MCV MCH MCHC RDW Plt Count MPV Immature Gran % (Auto) Neut % (Auto) Lymph % (Auto) [place] % (Auto) Eos % (Auto) Baso % (Auto) Lymph # (Auto) [place] # (Auto) Eos # (Auto) Baso # (Auto) Abs Immat Gran (auto) Absolute Neuts (auto) Absolute Nucleated RBC Nucleated RBC % Sodium 119 L* Potassium 4.7 Chloride 88 L Carbon Dioxide 22 Anion Gap 9 BUN 36 H Creatinine 1.18 H Estim Creat Clear Calc 56 Estimated GFR 46 L Glucose 237 H POC Capillary Glucose 286 H 280 H Calcium 8.7 Magnesium Total Bilirubin AST ALT Alkaline Phosphatase Total Protein Albumin 07/27/25 07/27/25 07/27/25 01:11 05:45 06:37 WBC 4.6 RBC 3.83 L Hgb 12.9 Hct 38.7 MCV 101.0 H MCH 33.7 MCHC 33.3 RDW 16.5 H Plt Count 277 MPV 9.3 Immature Gran % (Auto) 0.7 H Neut % (Auto) 58.3 Lymph % (Auto) 18.3 [place] % (Auto) 15.3 H Eos % (Auto) 5.7 H Baso % (Auto) 1.7 H Lymph # (Auto) 0.84 L [place] # (Auto) 0.7 H Eos # (Auto) 0.3 Baso # (Auto) 0.1 Abs Immat Gran (auto) 0.03 Absolute Neuts (auto) 2.7 Absolute Nucleated RBC 0.000 Nucleated RBC % 0.0 Sodium 120 L Potassium 5.0 Chloride 89 L Carbon Dioxide 21 L Anion Gap 10 BUN 38 H Creatinine 1.17 H Estim Creat Clear Calc 56 Estimated GFR 47 L Glucose 128 H POC Capillary Glucose 197 H 153 H Calcium 8.7 Magnesium 2.5 H Total Bilirubin 5.6 H AST 79 H ALT 59 H Alkaline Phosphatase 413 H Total Protein 7.8 Albumin 3.7 07/27/25 07/27/25 07:52 12:03 WBC RBC Hgb Hct MCV MCH MCHC RDW Plt Count MPV Immature Gran % (Auto) Neut % (Auto) Lymph % (Auto) [place] % (Auto) Eos % (Auto) Baso % (Auto) Lymph # (Auto) [place] # (Auto) Eos # (Auto) Baso # (Auto) Abs Immat Gran (auto) Absolute Neuts (auto) Absolute Nucleated RBC Nucleated RBC % Sodium Potassium Chloride Carbon Dioxide Anion Gap BUN Creatinine Estim Creat Clear Calc Estimated GFR Glucose POC Capillary Glucose 123 H 151 H Calcium Magnesium Total Bilirubin AST ALT Alkaline Phosphatase Total Protein Albumin Quality VTE Prophylaxis VTE prophylaxis: pharmacologic ordered (Continue home Eliquis.)
[2025-07-27 16:00] VITALS: BP 92/66; PULSE 60; RESP 18; TEMP 36.2; O2SAT 92
--- NOTE | 2025-07-27 16:28 | PC.NURSE ---
Hospitalist, Mauricio, notified that patient has been refusing all her medications today. We wake her up for her medications, but she spits out her pills and refuses to drink her lokelma. Patient educated on the usage for her medications, but patient falls asleep while talking to her. Instructed to start PIV access so we can start NS at 75ml/hr.
[2025-07-27] MEDS: SODIUM CHLORIDE 0.9% IV 1,000 ML 75 ML IV CONT (16:55)
[2025-07-27 21:53] VITALS: BP 121/51; PULSE 88; RESP 16; TEMP 36.4; O2SAT 100
[2025-07-27] MEDS: NORTRIPTYLINE HCL 10 MG CAPSULE PO (21:56)
[2025-07-27] MEDS: APIXABAN 5 MG TABLET PO (21:56)
[2025-07-27] MEDS: FAMOTIDINE 20 MG/2 ML VIAL IV PUSH (21:56)
[2025-07-27] MEDS: SODIUM ZIRCONIUM CYCLOSILICATE 5 GM POWD.PACK PO (21:56)
[2025-07-28 01:06] LABS: Osmolality, Urine 369 mOsmol/kg (.)
[2025-07-28] MEDS: CEPHALEXIN 500 MG CAPSULE 1000 MG PO ×2 (03:48→15:56)
[2025-07-28] MEDS: LEVOTHYROXINE SODIUM 75 MCG TABLET PO (05:44)
[2025-07-28] MEDS: SUCRALFATE 1 GM TABLET PO ×3 (05:45→15:56)
[2025-07-28] MEDS: CYANOCOBALAMIN 500 MCG TABLET PO (07:59)
[2025-07-28] MEDS: SODIUM CHLORIDE 1 GM TABLET PO ×3 (07:59→16:00)
[2025-07-28] MEDS: CHOLECALCIFEROL (VITAMIN D3) 125 MCG (5,000 UNITS) TABLET PO (07:59)
[2025-07-28] MEDS: DOCUSATE SODIUM 100 MG CAPSULE PO ×2 (07:59→16:00)
[2025-07-28 08:00] VITALS: BP 101/59; PULSE 90; RESP 10; TEMP 35.8; O2SAT 90
[2025-07-28] MEDS: METOPROLOL SUCCINATE EXT REL 25 MG TABCR PO (08:00)
[2025-07-28] MEDS: FUROSEMIDE 10 MG TABLET PO ×2 (08:00→16:00)
[2025-07-28] MEDS: FERROUS SULFATE 325 MG TABLET PO (08:00)
[2025-07-28] MEDS: ESCITALOPRAM OXALATE 10 MG TABLET PO (08:00)
[2025-07-28] MEDS: APIXABAN 5 MG TABLET PO (08:00)
[2025-07-28] MEDS: PANTOPRAZOLE 40 MG TABLET PO (08:00)
[2025-07-28] MEDS: FAMOTIDINE 20 MG/2 ML VIAL IV PUSH (08:10)
[2025-07-28] MEDS: MAGNESIUM OXIDE 400 MG TABLET PO (08:12)
[2025-07-28 08:15] LABS: Hematocrit 37.7 % (37.0-47.0); Hemoglobin 12.4 g/dL (12.0-15.0); Immature Granulocyte Percent A 0.5 % (0-0.5); Lymphocytes Absolute Auto 0.73 K/mm3 (0.9-3.2); Mean Corpuscular HGB Conc 32.9 g/dl (32-36); Mean Corpuscular Hemoglobin 33.9 pg (26-34); Mean Corpuscular Volume 103.0 fl (80-100); Nucleated Red Blood Cells Absolute Auto 0.000 K/mm3 (0.0-0.012); Nucleated Red Blood Cells Perc 0.0 % (0.0-0.2); Platelet Count Result 334 k/mm3 (150-375); Red Blood Count 3.66 M/mm3 (4.2-5.4); White Blood Count 3.9 K/mm3 (4.5-10.0)
[2025-07-28 08:48] LABS: Alanine Aminotransferase 54 U/L (6-35); Albumin Level 3.5 g/dL (3.5-5.1); Alkaline Phosphatase 413 U/L (38-126); Anion Gap 8 mmol/L (4-12); Aspartate Amino Transferase 66 U/L (14-36); Bilirubin,Total 6.3 mg/dL (0.2-1.3); Blood Urea Nitrogen 31 mg/dL (7-17); Calcium 8.5 mg/dL (8.4-10.2); Carbon Dioxide 23 mmol/L (22-30); Chloride 87 mmol/L (98-107); Estimated CRCL calculation 71 ml/min; Estimated Glomerular Filt Rate > 60; Glucose 170 mg/dL (65-110); Potassium 5.0 mmol/L (3.4-5.0); Sodium 118 mmol/L (137-145); Total Protein 7.1 g/dL (6.3-8.2)
[2025-07-28] MEDS: SODIUM CHLORIDE 3% 300 ML 100 ML IV CONT (10:22)
[2025-07-28] MEDS: SODIUM ZIRCONIUM CYCLOSILICATE 5 GM POWD.PACK PO ×2 (10:24→15:56)
--- NOTE | 2025-07-28 11:27 | P.PNIM_ITS ---
Progress Note: A&P Assessment and Plan (1) CHF exacerbation: Qualifiers: Heart failure type: combined systolic and diastolic Qualified Code(s): I50.43 - Acute on chronic combined systolic (congestive) and diastolic (congestive) heart failure Code(s): I50.9 - Heart failure, unspecified Status: Acute Assessment and Plan: Treated with IV Bumex in the ED, with significant improvement in clinical status. COnitneu metoprolol, bumex on hold for Hyponatremia cardiology following (2) Pulmonary hypertension: Code(s): I27.20 - Pulmonary hypertension, unspecified Status: Acute Assessment and Plan: continue above care (3) Nonischemic cardiomyopathy: Code(s): I42.8 - Other cardiomyopathies Status: Acute Assessment and Plan: Cardiology on board, GDMT on hold due to blood pressure, to be resumed when blood pressure allows (4) CHF due to valvular disease: Code(s): I50.9 - Heart failure, unspecified; I38 - Endocarditis, valve unspecified Status: Acute Assessment and Plan: On chronic antibiotic therapy-cephalexin Continue at this time (5) Chronic hypotension: Code(s): I95.89 - Other hypotension Status: Acute Assessment and Plan: Blood pressure medications on hold (6) Hyponatremia: Code(s): E87.1 - Hypo-osmolality and hyponatremia Status: Acute Assessment and Plan: Could be secondary to fluid overload, will repeat sodium with fluid restriction at this time. Unclear if acute or chronic however patient has baseline intellectual disability which may affect her ability to ascertain neurological change. 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 Will maintain random blood sugar above 130 given this information Insulin sliding scale at this time (8) Atrial fibrillation: Qualifiers: Atrial fibrillation type: permanent Qualified Code(s): I48.21 - Permanent atrial fibrillation Code(s): I48.91 - Unspecified atrial fibrillation Status: Chronic Assessment and Plan: History of atrial fibrillation on anticoagulation and metoprolol Continue Metoprolol and Eliquis (9) Acute kidney injury: Code(s): N17.9 - Acute kidney failure, unspecified Status: Acute Assessment and Plan: Creatinine mildly elevated to 1.18from 0.99 yesterday, prior baseline was 0.71 in July 04. Could be secondary to hypotension or CHF exacerbation proper, or use of IV Bumex Will trend renal function at this time BUme on hold Cr 1.93 today (10) Anxiety: Code(s): F41.9 - Anxiety disorder, unspecified Status: Acute Assessment and Plan: The patient's sister's report that she becomes very irritable when she is not on her buspirone which is a home medication. Buspirone has been started b.i.d. Plan Hyperkalemia K 5.0 S/p [facility] Nephrology following DVT prophylaxis on Eliquis Subjective Date/time seen: 07/28/25 11:27 Interval history: Comfortable at bedside Nephrology managing hyponatremia Review of Systems Review of Systems: Unobtainable due to patient's intellectual disability Exam Narrative: Weight 104 kg BMI 34.9 Objective Data Vital Signs Vital Signs: Vital Signs - 24 hr 07/27/25 12:11 07/27/25 16:00 07/27/25 21:53 Temperature 97.5 F L 97.2 F L 97.6 F Pulse Rate 90 60 88 Respiratory Rate 18 18 16 Blood Pressure 109/68 92/66 L 121/51 L Pulse Oximetry 100 92 100 Oxygen Delivery 07/27/25 22:01 Temperature Pulse Rate Respiratory Rate Blood Pressure Pulse Oximetry Oxygen Delivery Room Air Intake/Output Intake/Output: Intake & Output 07/25/25 07/26/25 07/27/25 07/28/25 23:59 23:59 23:59 23:59 Intake Total 847 356 3004.5 520 Output Total 150 Balance 584 161 4185.5 520 Meds/Results Medications: Active Medications Generic Name Dose Route Start Last Admin Trade Name Freq PRN Reason Stop Dose Admin Acetaminophen 650 mg 07/22/25 00:30 07/26/25 08:10 Acetaminophen 325 Mg Tablet PO 650 mg Q6H PRN Administration Mild Pain (1-3) or Fever Albuterol 2 puff 07/22/25 03:53 Albuterol Sulfate (*Sp) Aerosol 1 Puff INHALATION Q6H PRN Shortness Of Breath Or Wheezing Apixaban 5 mg 07/22/25 09:00 07/28/25 08:00 Apixaban 5 Mg Tablet PO 5 mg Q12HR [facility] Administration Bumetanide 1 mg 07/25/25 09:00 07/25/25 08:47 Bumetanide 1 Mg Tablet PO 1 mg On Hold: 07/25/25 11:52 DAILY [facility] Administration Buspirone HCl 10 mg 07/22/25 09:00 07/28/25 07:59 Buspirone Hcl 10 Mg Tablet PO 10 mg Q12HR [facility] Administration Cephalexin HCl 1,000 mg 07/22/25 04:25 07/28/25 03:48 Cephalexin 500 Mg Capsule PO 1,000 mg Q12H [facility] Administration Cyanocobalamin 500 mcg 07/22/25 09:00 07/28/25 07:59 Cyanocobalamin 500 Mcg Tablet PO 500 mcg DAILY [facility] Administration Dextrose 12.5 gm 07/21/25 22:56 07/25/25 04:00 Dextrose 50% 25 Gm/50 Ml Syringe IV PUSH 12.5 gm PRN PRN Administration Hypoglycemia Protocol Docusate Sodium 100 mg 07/22/25 09:00 07/28/25 07:59 Docusate Sodium 100 Mg Capsule PO 100 mg BID [facility] Administration Empagliflozin 10 mg 07/22/25 09:00 Empagliflozin 10 Mg Tablet PO On Hold: 07/22/25 09:00 DAILY [facility] Escitalopram Oxalate 10 mg 07/22/25 09:00 07/28/25 08:00 Escitalopram Oxalate 10 Mg Tablet PO 10 mg DAILY [facility] Administration Famotidine 20 mg 07/22/25 09:00 07/28/25 08:10 Famotidine 20 Mg/2 Ml Vial IV PUSH 20 mg Q12HR [facility] Administration Ferrous Sulfate 325 mg 07/22/25 09:00 07/28/25 08:00 Ferrous Sulfate 325 Mg Tablet PO 325 mg DAILY [facility] Administration Fluticasone Propionate 1 spray 07/22/25 03:53 Fluticasone Propionate 0.05% Na Spr 16 Gm Btl (*Bkc) NASAL DAILY PRN allergy symptoms/Rhinitis. Furosemide 10 mg 07/26/25 17:00 07/28/25 08:00 Furosemide 10 Mg Tablet PO 10 mg BID [facility] Administration Glucagon 1 mg 07/21/25 22:56 Glucagon For Inj 1 Mg Vial IM PRN PRN Hypoglycemia Protocol Glucose 15 gm 07/21/25 22:56 Glucose Oral Gel 15 Gm Of Glucse In 37.5 Gm Tube PO PRN PRN Hypoglycemia Protocol Hydroxyzine HCl 25 mg 07/22/25 03:53 07/26/25 21:06 Hydroxyzine Hcl 25 Mg Tablet PO 25 mg Q4H PRN Administration itching or anxiety. Dextrose 1,000 mls @ 100 mls/hr 07/21/25 22:56 Dextrose 5% 1,000 Ml IVPB PRN PRN Hypoglycemia Protocol Sodium Chloride 300 mls @ 60 mls/hr 07/28/25 10:00 07/28/25 10:22 Sodium Chloride 3% IV CONT 07/28/25 14:59 100 mls/hr .Q5H ONE Administration Insulin Aspart 3 - 6 units 07/22/25 08:00 07/24/25 16:46 Insulin Aspart (*Bkc) 100 Units/Ml SUB-Q Not Given On Hold: 07/25/25 04:22 TIDWM [facility] Protocol Insulin Aspart 10 units 07/22/25 08:00 07/24/25 18:22 Insulin Aspart (*Bkc) 100 Units/Ml SUB-Q 10 units On Hold: 07/25/25 04:21 TIDWM [facility] Administration Comment: Pt hypoglycemic overnight Insulin Glargine 10 units 07/22/25 21:00 07/24/25 23:22 Insulin Glargine (*Bkc) 100 Units/Ml SUB-Q Not Given On Hold: 07/25/25 04:22 QHS [facility] Levothyroxine Sodium 75 mcg 07/22/25 06:30 07/28/25 05:44 Levothyroxine Sodium 75 Mcg Tablet PO 75 mcg DAILY@0630 [facility] Administration Lidocaine 1 patch 07/22/25 04:21 Lidocaine 5% Patch TRANSDERM DAILY PRN back pain. Magnesium Oxide 400 mg 07/22/25 09:00 07/28/25 08:12 Magnesium Oxide 400 Mg Tablet PO 400 mg DAILY [facility] Administration Metoprolol Succinate 25 mg 07/22/25 09:00 07/28/25 08:00 Metoprolol Succinate Ext Rel 25 Mg Tabcr PO 25 mg DAILY [facility] Administration Nortriptyline HCl 10 mg 07/22/25 21:00 07/27/25 21:56 Nortriptyline Hcl 10 Mg Capsule PO 10 mg HS [facility] Administration Pantoprazole Sodium 40 mg 07/22/25 09:00 07/28/25 08:00 Pantoprazole 40 Mg Tablet PO 40 mg QAM [facility] Administration Polyethylene Glycol 17 gm 07/22/25 03:53 Polyethylene Glycol 3350 17 Gm Powd.Pack PO DAILY PRN Constipation Sodium Chloride 1 gm 07/24/25 09:00 07/28/25 07:59 Sodium Chloride 1 Gm Tablet PO 1 gm TID [facility] Administration Sodium Zirconium Cyclosilicate 5 gm 07/26/25 10:00 07/28/25 10:24 Sodium Zirconium Cyclosilicate 5 Gm Powd.Pack PO 5 gm TID@1000,1500,2200 [facility] Administration Sucralfate 1 gm 07/22/25 11:30 07/28/25 11:23 Sucralfate 1 Gm Tablet PO 1 gm ACHS [facility] Administration Vitamin D 125 mcg 07/22/25 09:00 07/28/25 07:59 Cholecalciferol (Vitamin D3) 125 Mcg (5,000 Units) Tablet PO 125 mcg DAILY [facility] Administration Radiology Results: ITS Impressions Chest/Abdomen/Pelvis CT 07/21/25 17:48 IMPRESSION: 1. Probable CHF. 2. Cirrhotic disease of the liver with small amount of probable ascites. 3. Probable cystitis. Chest X-Ray 07/27/25 08:21 IMPRESSION: 1. Left lower lobe atelectasis and/or pleural effusion. 2. Mild interstitial pulmonary edema. Labs Labs: Laboratory Results - last 24 hr 07/25/25 07/27/25 07/27/25 03:25 12:03 16:09 WBC RBC Hgb Hct MCV MCH MCHC RDW Plt Count MPV Immature Gran % (Auto) Neut % (Auto) Lymph % (Auto) [place] % (Auto) Eos % (Auto) Baso % (Auto) Lymph # (Auto) [place] # (Auto) Eos # (Auto) Baso # (Auto) Abs Immat Gran (auto) Absolute Neuts (auto) Absolute Nucleated RBC Nucleated RBC % Sodium Potassium Chloride Carbon Dioxide Anion Gap BUN Creatinine Estim Creat Clear Calc Estimated GFR Glucose POC Capillary Glucose 151 H 153 H Calcium Total Bilirubin AST ALT Alkaline Phosphatase Total Protein Albumin Urine Osmolality 369 07/27/25 07/28/25 07/28/25 21:45 00:45 06:06 WBC RBC Hgb Hct MCV MCH MCHC RDW Plt Count MPV Immature Gran % (Auto) Neut % (Auto) Lymph % (Auto) [place] % (Auto) Eos % (Auto) Baso % (Auto) Lymph # (Auto) [place] # (Auto) Eos # (Auto) Baso # (Auto) Abs Immat Gran (auto) Absolute Neuts (auto) Absolute Nucleated RBC Nucleated RBC % Sodium Potassium Chloride Carbon Dioxide Anion Gap BUN Creatinine Estim Creat Clear Calc Estimated GFR Glucose POC Capillary Glucose 130 H 179 H 193 H Calcium Total Bilirubin AST ALT Alkaline Phosphatase Total Protein Albumin Urine Osmolality 07/28/25 07/28/25 07:52 08:17 WBC 3.9 L RBC 3.66 L Hgb 12.4 Hct 37.7 MCV 103.0 H MCH 33.9 MCHC 32.9 RDW 17.0 H Plt Count 334 MPV 10.5 H Immature Gran % (Auto) 0.5 Neut % (Auto) 60.5 Lymph % (Auto) 18.6 [place] % (Auto) 12.5 H Eos % (Auto) 5.9 H Baso % (Auto) 2.0 H Lymph # (Auto) 0.73 L [place] # (Auto) 0.5 Eos # (Auto) 0.2 Baso # (Auto) 0.1 Abs Immat Gran (auto) 0.02 Absolute Neuts (auto) 2.4 Absolute Nucleated RBC 0.000 Nucleated RBC % 0.0 Sodium 118 L* Potassium 5.0 Chloride 87 L Carbon Dioxide 23 Anion Gap 8 BUN 31 H Creatinine 0.93 Estim Creat Clear Calc 71 Estimated GFR > 60 Glucose 170 H POC Capillary Glucose 179 H Calcium 8.5 Total Bilirubin 6.3 H AST 66 H ALT 54 H Alkaline Phosphatase 413 H Total Protein 7.1 Albumin 3.5 Urine Osmolality Quality VTE Prophylaxis VTE prophylaxis: pharmacologic ordered (Continue home Eliquis.)
--- NOTE | 2025-07-28 12:18 | P.PNNP_ITS ---
Progress Note: A&P Assessment and Plan (1) Hyponatremia: Code(s): E87.1 - Hypo-osmolality and hyponatremia Status: Acute Assessment and Plan: * continues to fluctuate * acute on chronic * baseline sodium seems to run 127 - 136mg/dL in the last year * however, has been in the normal range in the past as well * risk factors for low sodium: * prerenal factors * known CHF/cardiomyopathy * medications: - lexapro (SSRI) - nortriptyline - buspirone - diuretic therapy * thyroid disease * excessive fluid intake * liver cirrhosis * other(?) * evaluation pending * started on salt tabs * added low dose lasix given CXR findings * consider fluid restriction (but does not appear to be drinking that much) * however, her refusal to take medications is also not helping this issue * trial dosing of 3% saline today * follow trend of repeat sodium levels (2) Acute kidney injury: Code(s): N17.9 - Acute kidney failure, unspecified Status: Acute Assessment and Plan: * resolving (if not resolved) * noted by trend of labs since 07/22/25 * however, baseline creatinine seems to run around 0.7 - 1.2mg/dl in the last year * creatinine has been relatively stable * due to previous diuretic use(?) versus contrast exposure (CT on 07/21) * however, underlying cardiomyopathy and GMDT may be playing a role * follow trend of repeat labs and UOP (3) Hyperkalemia: Code(s): E87.5 - Hyperkalemia Status: Acute Assessment and Plan: * noted by labs today (on 07/26) * s/p medical management with lokelma * due to previous spironolactone use versus fluctuating kidney function(?) * follow trend of K+ (4) CHF exacerbation: Qualifiers: Heart failure type: combined systolic and diastolic Qualified Code(s): I50.43 - Acute on chronic combined systolic (congestive) and diastolic (congestive) heart failure Code(s): I50.9 - Heart failure, unspecified Status: Acute Assessment and Plan: * mild exacerbation noted on admission * last Echo (02/22/25) noted: * left ventricular systolic function is mildly reduced, estimated at 40 - 45% * right ventricular systolic function is normal * mild to moderate mitral valve regurgitation * severe tricuspid valve regurgitation * diuretic therapy was on hold due to #1 * started on low dose lasix * Cardiology recommendations noted (5) Atrial fibrillation: Qualifiers: Atrial fibrillation type: permanent Qualified Code(s): I48.21 - Permanent atrial fibrillation Code(s): I48.91 - Unspecified atrial fibrillation Status: Chronic Assessment and Plan: * rate control strategy * on metoprolol * on Eliquis (6) Type 2 diabetes mellitus with hyperglycemia: Qualifiers: Diabetes mellitus buttermaker insulin use: with fpc use Qualified Code(s): E11.65 - Type 2 diabetes mellitus with hyperglycemia; Z79.4 - buttermaker (current) use of insulin Code(s): E11.65 - Type 2 diabetes mellitus with hyperglycemia Status: Chronic Assessment and Plan: * follow accu-cheks * glycemic control per hospitalist Will continue to follow. Subjective Date/time seen: 07/28/25 12:18 Interval history: Follow-up for acute on chronic hyponatremia. Noted drop in sodium by AM labs but suspect this is due to patient intermittently refusing medications yesterday (i.e. salt tablets, diuret ics,...etc); no apparent distress noted at the time of my visit; no issues/events overnight or earlier this morning. Exam Narrative: General: WD/WN female in NAD Heart: normal S1 and S2; no rub Lungs: clear anteriolry. decreased at bases Abdomen: soft, nontender, nondistended, positive bowel sounds Extremities: no cyanosis or clubbing; no edema Skin: warm and intact Objective Data Vital Signs Vital Signs: Vital Signs Temp Pulse Resp BP Pulse Ox O2 Del Method 07/27/25 22:01 Room Air 07/27/25 21:53 97.6 F 88 16 121/51 L 100 Intake/Output Intake/Output: Intake & Output 07/25/25 07/26/25 07/27/25 07/28/25 23:59 23:59 23:59 23:59 Intake Total 762 760 0194.5 760 Output Total 150 Balance 413 743 8591.5 760 Meds/Results Medications: Active Medications Generic Name Dose Route Start Last Admin Trade Name Freq PRN Reason Stop Dose Admin Acetaminophen 650 mg 07/22/25 00:30 07/26/25 08:10 Acetaminophen 325 Mg Tablet PO 650 mg Q6H PRN Administration Mild Pain (1-3) or Fever Albuterol 2 puff 07/22/25 03:53 Albuterol Sulfate (*Sp) Aerosol 1 Puff INHALATION Q6H PRN Shortness Of Breath Or Wheezing Apixaban 5 mg 07/22/25 09:00 07/28/25 08:00 Apixaban 5 Mg Tablet PO 5 mg Q12HR GALINA Administration Bumetanide 1 mg 07/25/25 09:00 07/25/25 08:47 Bumetanide 1 Mg Tablet PO 1 mg On Hold: 07/25/25 11:52 DAILY GALINA Administration Buspirone HCl 10 mg 07/22/25 09:00 07/28/25 07:59 Buspirone Hcl 10 Mg Tablet PO 10 mg Q12HR GALINA Administration Cephalexin HCl 1,000 mg 07/22/25 04:25 07/28/25 15:56 Cephalexin 500 Mg Capsule PO 1,000 mg Q12H GALINA Administration Cyanocobalamin 500 mcg 07/22/25 09:00 07/28/25 07:59 Cyanocobalamin 500 Mcg Tablet PO 500 mcg DAILY GALINA Administration Dextrose 12.5 gm 07/21/25 22:56 07/25/25 04:00 Dextrose 50% 25 Gm/50 Ml Syringe IV PUSH 12.5 gm PRN PRN Administration Hypoglycemia Protocol Docusate Sodium 100 mg 07/22/25 09:00 07/28/25 16:00 Docusate Sodium 100 Mg Capsule PO 100 mg BID GALINA Administration Empagliflozin 10 mg 07/22/25 09:00 Empagliflozin 10 Mg Tablet PO DAILY GALINA Escitalopram Oxalate 10 mg 07/22/25 09:00 07/28/25 08:00 Escitalopram Oxalate 10 Mg Tablet PO 10 mg DAILY GALINA Administration Famotidine 20 mg 07/22/25 09:00 07/28/25 08:10 Famotidine 20 Mg/2 Ml Vial IV PUSH 20 mg Q12HR GALINA Administration Ferrous Sulfate 325 mg 07/22/25 09:00 07/28/25 08:00 Ferrous Sulfate 325 Mg Tablet PO 325 mg DAILY GALINA Administration Fluticasone Propionate 1 spray 07/22/25 03:53 Fluticasone Propionate 0.05% Na Spr 16 Gm Btl (*Bkc) NASAL DAILY PRN allergy symptoms/Rhinitis. Furosemide 10 mg 07/26/25 17:00 07/28/25 16:00 Furosemide 10 Mg Tablet PO 10 mg BID GALINA Administration Glucagon 1 mg 07/21/25 22:56 Glucagon For Inj 1 Mg Vial IM PRN PRN Hypoglycemia Protocol Glucose 15 gm 07/21/25 22:56 Glucose Oral Gel 15 Gm Of Glucse In 37.5 Gm Tube PO PRN PRN Hypoglycemia Protocol Hydroxyzine HCl 25 mg 07/22/25 03:53 07/26/25 21:06 Hydroxyzine Hcl 25 Mg Tablet PO 25 mg Q4H PRN Administration itching or anxiety. Dextrose 1,000 mls @ 100 mls/hr 07/21/25 22:56 Dextrose 5% 1,000 Ml IVPB PRN PRN Hypoglycemia Protocol Insulin Aspart 10 units 07/28/25 12:30 07/28/25 12:32 Insulin Aspart (*Bkc) 100 Units/Ml SUB-Q 10 units TIDWM GALINA Administration Insulin Aspart 3 - 6 units 07/28/25 12:30 07/28/25 12:33 Insulin Aspart (*Bkc) 100 Units/Ml SUB-Q 6 units TIDWM GALINA Administration Protocol Insulin Glargine 10 units 07/22/25 21:00 07/24/25 23:22 Insulin Glargine (*Bkc) 100 Units/Ml SUB-Q Not Given QHS [facility] Levothyroxine Sodium 75 mcg 07/22/25 06:30 07/28/25 05:44 Levothyroxine Sodium 75 Mcg Tablet PO 75 mcg DAILY@0630 GALINA Administration Lidocaine 1 patch 07/22/25 04:21 Lidocaine 5% Patch TRANSDERM DAILY PRN back pain. Magnesium Oxide 400 mg 07/22/25 09:00 07/28/25 08:12 Magnesium Oxide 400 Mg Tablet PO 400 mg DAILY GALINA Administration Metoprolol Succinate 25 mg 07/22/25 09:00 07/28/25 08:00 Metoprolol Succinate Ext Rel 25 Mg Tabcr PO 25 mg DAILY GALINA Administration Nortriptyline HCl 10 mg 07/22/25 21:00 07/27/25 21:56 Nortriptyline Hcl 10 Mg Capsule PO 10 mg HS GALINA Administration Pantoprazole Sodium 40 mg 07/22/25 09:00 07/28/25 08:00 Pantoprazole 40 Mg Tablet PO 40 mg QAM GALINA Administration Polyethylene Glycol 17 gm 07/22/25 03:53 Polyethylene Glycol 3350 17 Gm Powd.Pack PO DAILY PRN Constipation Sodium Chloride 1 gm 07/24/25 09:00 07/28/25 16:00 Sodium Chloride 1 Gm Tablet PO 1 gm TID GALINA Administration Sodium Zirconium Cyclosilicate 5 gm 07/26/25 10:00 07/28/25 15:56 Sodium Zirconium Cyclosilicate 5 Gm Powd.Pack PO 5 gm TID@1000,1500,2200 G[facility]INA Administration Sucralfate 1 gm 07/22/25 11:30 07/28/25 15:56 Sucralfate 1 Gm Tablet PO 1 gm ACHS G[facility]INA Administration Vitamin D 125 mcg 07/22/25 09:00 07/28/25 07:59 Cholecalciferol (Vitamin D3) 125 Mcg (5,000 Units) Tablet PO 125 mcg DAILY GALINA Administration Radiology Results: ITS Impressions Chest/Abdomen/Pelvis CT 07/21/25 17:48 IMPRESSION: 1. Probable CHF. 2. Cirrhotic disease of the liver with small amount of probable ascites. 3. Probable cystitis. Chest X-Ray 07/27/25 08:21 IMPRESSION: 1. Left lower lobe atelectasis and/or pleural effusion. 2. Mild interstitial pulmonary edema. Labs Labs: Laboratory Results - last 24 hr 07/28/25 07:52 WBC 3.9 L Hgb 12.4 Hct 37.7 Plt Count 334 Sodium 118 L* Potassium 5.0 Chloride 87 L Carbon Dioxide 23 Anion Gap 8 BUN 31 H Creatinine 0.93 Estim Creat Clear Calc 71 Estimated GFR > 60 Glucose 170 H Calcium 8.5 Total Bilirubin 6.3 H AST 66 H ALT 54 H Alkaline Phosphatase 413 H Total Protein 7.1 Albumin 3.5
[2025-07-28] MEDS: INSULIN ASPART (*BKC) 100 UNITS/ML 10 UNITS SUB-Q ×2 (12:32→17:17)
[2025-07-28] MEDS: INSULIN ASPART (*BKC) 100 UNITS/ML SUB-Q (12:33)
[2025-07-28 14:00] VITALS: BP 110/62; PULSE 82; RESP 12; TEMP 36.1; O2SAT 95
[2025-07-28 15:12] LABS: Sodium 122 mmol/L (137-145)
[2025-07-29] MEDS: DEXTROSE 50% 25 GM/50 ML SYRINGE IV PUSH ×4 (00:57→06:10)
--- NOTE | 2025-07-29 01:12 | ECG_ITS ---
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
[2025-07-29 02:34] LABS: Anion Gap 9 mmol/L (4-12); Blood Urea Nitrogen 27 mg/dL (7-17); Calcium 8.4 mg/dL (8.4-10.2); Carbon Dioxide 24 mmol/L (22-30); Chloride 90 mmol/L (98-107); Estimated CRCL calculation 79 ml/min; Estimated Glomerular Filt Rate > 60; Glucose 45 mg/dL (65-110); Potassium 4.2 mmol/L (3.4-5.0); Sodium 123 mmol/L (137-145)
[2025-07-29] MEDS: diazePAM INJ (*CRX) 10 MG/2 ML SYRINGE 5 MG IV PUSH (03:05)
--- NOTE | 2025-07-29 04:31 | PC.NURSE ---
07/28/25@ 1915, patient was yelling, I wanna go home, get me outta here, you fucking bitches. Screamed and hit sister and grandson, was unable to redirect behavior or console. Family tried several attempts to talk and comfort pt, but unable. Patient refused to eat or drink anything she was so agitated. Family left shortly after to let staff redirect patient and accommodate needs. Staff stayed with patient in room due to trying to jump out of bed.Threw items from side table at staff and slammed side table into wall. Pt was still unable to console or redirect behavior. Pt continued to cry to herself rocking back and forth. Offered food and beverages to consume calories to prevent hypoglycemic episode. Pain medication offered if there was pain. Pt continued to refuse all mediations in addition to 2100 HS. Provided distractions by turning on television to music station. At that time, lights were dimmed in room, call light and belongings with reach (nothing heavy to cause harm if thrown) bed in lowest position with zone [address] Ann informed about pt behavior, stated to let pt wear herself down, no new ordered provided at that time. Will continue to monitor pt progress throughout night, vital signs were stable. Family was called with update on patient progress.
[2025-07-29 05:34] VITALS: BP 124/89; PULSE 79; RESP 16; TEMP 36.3; O2SAT 99
[2025-07-29 05:37] LABS: Hematocrit 38.0 % (37.0-47.0); Hemoglobin 12.7 g/dL (12.0-15.0); Immature Granulocyte Percent A 0.4 % (0-0.5); Lymphocytes Absolute Auto 0.77 K/mm3 (0.9-3.2); Mean Corpuscular HGB Conc 33.4 g/dl (32-36); Mean Corpuscular Hemoglobin 34.0 pg (26-34); Mean Corpuscular Volume 101.6 fl (80-100); Nucleated Red Blood Cells Absolute Auto 0.000 K/mm3 (0.0-0.012); Nucleated Red Blood Cells Perc 0.0 % (0.0-0.2); Platelet Count Result 252 k/mm3 (150-375); Red Blood Count 3.74 M/mm3 (4.2-5.4); White Blood Count 5.1 K/mm3 (4.5-10.0)
[2025-07-29 06:02] LABS: Alanine Aminotransferase 51 U/L (6-35); Albumin Level 3.6 g/dL (3.5-5.1); Alkaline Phosphatase 397 U/L (38-126); Anion Gap 7 mmol/L (4-12); Aspartate Amino Transferase 61 U/L (14-36); Bilirubin,Total 4.5 mg/dL (0.2-1.3); Blood Urea Nitrogen 25 mg/dL (7-17); Calcium 8.3 mg/dL (8.4-10.2); Carbon Dioxide 25 mmol/L (22-30); Chloride 91 mmol/L (98-107); Estimated CRCL calculation 75 ml/min; Estimated Glomerular Filt Rate > 60; Glucose 54 mg/dL (65-110); Magnesium 2.2 mg/dL (1.6-2.3); Potassium 4.0 mmol/L (3.4-5.0); Sodium 123 mmol/L (137-145); Total Protein 7.5 g/dL (6.3-8.2)
[2025-07-29] MEDS: DEXTROSE 5% 1,000 ML 1,000 ML 100 ML IVPB (06:21)
[2025-07-29 06:36] LABS: Thyroid Stimulating Hormone 8.350 uIU/mL (0.465-4.680)
[2025-07-29] MEDS: FAMOTIDINE 20 MG/2 ML VIAL IV PUSH ×2 (09:07→20:41)
--- NOTE | 2025-07-29 09:34 | PCOTNOTE ---
Attempted to see Patient for OT treatment session. Patient yelling out, states she needs to use the bathroom, will not allow therapist to assist her. Patient has soft restraints on at this time. RN and homero notified and aware
[2025-07-29] MEDS: SODIUM ZIRCONIUM CYCLOSILICATE 5 GM POWD.PACK PO (10:27)
--- NOTE | 2025-07-29 11:23 | PCNWS ---
Weekly nutritional screen. Patient is tolerating current diabetic diet with adequate intake 50-75%, nursing reports eats well as long as she gets her preferences. No weight loss reported. No nutritional recommendations at this time.
--- NOTE | 2025-07-29 11:45 | P.PNNP_ITS ---
Progress Note: A&P Assessment and Plan (1) Hyponatremia: Code(s): E87.1 - Hypo-osmolality and hyponatremia Status: Acute Assessment and Plan: * continues to fluctuate * acute on chronic * baseline sodium seems to run 127 - 136mg/dL in the last year * however, has been in the normal range in the past as well * risk factors for low sodium: * prerenal factors * known CHF/cardiomyopathy * medications: - lexapro (SSRI) - nortriptyline - buspirone - diuretic therapy * thyroid disease * excessive fluid intake * liver cirrhosis * other(?) * evaluation noted to date: * TSH elevated (no T4 or T3 done) * cortisol on lower end - consider stim test * urine sodium > 40 * urine osmo> serum osmo * SPEP negative; UPEP pending * started on salt tabs * added low dose lasix given CXR findings * consider fluid restriction (but does not appear to be drinking that much) * s/p 3% saline on 07/28 * follow trend of repeat sodium levels (2) Acute kidney injury: Code(s): N17.9 - Acute kidney failure, unspecified Status: Acute Assessment and Plan: * resolved * noted by trend of labs since 07/22/25 * however, baseline creatinine seems to run around 0.7 - 1.2mg/dl in the last year * creatinine has been relatively stable * due to previous diuretic use(?) versus contrast exposure (CT on 07/21) * however, underlying cardiomyopathy and GMDT may be playing a role * follow trend of repeat labs and UOP (3) Hyperkalemia: Code(s): E87.5 - Hyperkalemia Status: Acute Assessment and Plan: * noted by labs today (on 07/26) * s/p medical management with lokelma * due to previous spironolactone use versus fluctuating kidney function(?) * follow trend of K+ (4) CHF exacerbation: Qualifiers: Heart failure type: combined systolic and diastolic Qualified Code(s): I50.43 - Acute on chronic combined systolic (congestive) and diastolic (congestive) heart failure Code(s): I50.9 - Heart failure, unspecified Status: Acute Assessment and Plan: * mild exacerbation noted on admission * last Echo (02/22/25) noted: * left ventricular systolic function is mildly reduced, estimated at 40 - 45% * right ventricular systolic function is normal * mild to moderate mitral valve regurgitation * severe tricuspid valve regurgitation * diuretic therapy was on hold due to #1 * started on low dose lasix * Cardiology recommendations noted (5) Atrial fibrillation: Qualifiers: Atrial fibrillation type: permanent Qualified Code(s): I48.21 - Permanent atrial fibrillation Code(s): I48.91 - Unspecified atrial fibrillation Status: Chronic Assessment and Plan: * rate control strategy * on metoprolol * on Eliquis (6) Type 2 diabetes mellitus with hyperglycemia: Qualifiers: Diabetes mellitus superintendent terminal insulin use: with custodial use Qualified Code(s): E11.65 - Type 2 diabetes mellitus with hyperglycemia; Z79.4 - assisted (current) use of insulin Code(s): E11.65 - Type 2 diabetes mellitus with hyperglycemia Status: Chronic Assessment and Plan: * follow accu-cheks * glycemic control per hospitalist Will continue to follow. L Subjective Date/time seen: 07/29/25 11:45 Interval history: Follow-up for acute on chronic hyponatremia. Status post 3% saline yesterday which increased sodium level from 118 to 122mmol/L; remains on salt tablets + lasix as well but sodium somewhat resistant to change/improvement; no apparent distress and appears otherwise asymptomatic. Exam 2 Narrative: General: WD/WN female in NAD Heart: normal S1 and S2; no rub Lungs: clear anteriolry. decreased at bases Abdomen: soft, nontender, nondistended, positive bowel sounds Extremities: no cyanosis or clubbing; no edema Skin: no rash Objective Data Vital Signs Vital Signs: Vital Signs Temp Pulse Resp BP Pulse Ox O2 Del Method 07/29/25 11:39 96.1 F L 91 16 94/79 L 99 07/29/25 08:00 Room Air 07/29/25 05:34 97.4 F L 79 16 124/89 99 07/29/25 03:15 Room Air Intake/Output Intake/Output: Intake & Output 07/26/25 07/27/25 07/28/25 07/29/25 23:59 23:59 23:59 23:59 Intake Total 800 1257.5 1380 878 Output Total 100 Balance 800 1257.5 1280 878 Meds/Results Medications: Active Medications Generic Name Dose Route Start Last Admin Trade Name Freq PRN Reason Stop Dose Admin Acetaminophen 650 mg 07/22/25 00:30 07/26/25 08:10 Acetaminophen 325 Mg Tablet PO 650 mg Q6H PRN Administration Mild Pain (1-3) or Fever Albuterol 2 puff 07/22/25 03:53 Albuterol Sulfate (*Sp) Aerosol 1 Puff INHALATION Q6H PRN Shortness Of Breath Or Wheezing Apixaban 5 mg 07/22/25 09:00 07/29/25 09:22 Apixaban 5 Mg Tablet PO Not Given Q12HR GALINA Bumetanide 1 mg 07/25/25 09:00 07/25/25 08:47 Bumetanide 1 Mg Tablet PO 1 mg On Hold: 07/25/25 11:52 DAILY GALINA Administration Buspirone HCl 10 mg 07/22/25 09:00 07/29/25 09:22 Buspirone Hcl 10 Mg Tablet PO Not Given Q12HR GALINA Cephalexin HCl 1,000 mg 07/22/25 04:25 07/29/25 17:47 Cephalexin 500 Mg Capsule PO 1,000 mg Q12H GALINA Administration Cyanocobalamin 500 mcg 07/22/25 09:00 07/29/25 09:22 Cyanocobalamin 500 Mcg Tablet PO Not Given DAILY GALINA Dextrose 12.5 gm 07/21/25 22:56 07/29/25 01:01 Dextrose 50% 25 Gm/50 Ml Syringe IV PUSH 12.5 gm PRN PRN Administration Hypoglycemia Protocol Docusate Sodium 100 mg 07/22/25 09:00 07/29/25 17:47 Docusate Sodium 100 Mg Capsule PO 100 mg BID GALINA Administration Empagliflozin 10 mg 07/22/25 09:00 07/29/25 09:23 Empagliflozin 10 Mg Tablet PO Not Given DAILY GALINA Escitalopram Oxalate 10 mg 07/22/25 09:00 07/29/25 09:23 Escitalopram Oxalate 10 Mg Tablet PO Not Given DAILY GALINA Famotidine 20 mg 07/22/25 09:00 07/29/25 09:07 Famotidine 20 Mg/2 Ml Vial IV PUSH 20 mg Q12HR GALINA Administration Ferrous Sulfate 325 mg 07/22/25 09:00 07/29/25 09:23 Ferrous Sulfate 325 Mg Tablet PO Not Given DAILY GALINA Fluticasone Propionate 1 spray 07/22/25 03:53 Fluticasone Propionate 0.05% Na Spr 16 Gm Btl (*Bkc) NASAL DAILY PRN allergy symptoms/Rhinitis. Furosemide 10 mg 07/26/25 17:00 07/29/25 17:47 Furosemide 10 Mg Tablet PO 10 mg BID GALINA Administration Glucagon 1 mg 07/21/25 22:56 Glucagon For Inj 1 Mg Vial IM PRN PRN Hypoglycemia Protocol Glucose 15 gm 07/21/25 22:56 Glucose Oral Gel 15 Gm Of Glucse In 37.5 Gm Tube PO PRN PRN Hypoglycemia Protocol Hydroxyzine HCl 25 mg 07/22/25 03:53 07/26/25 21:06 Hydroxyzine Hcl 25 Mg Tablet PO 25 mg Q4H PRN Administration itching or anxiety. Dextrose 1,000 mls @ 100 mls/hr 07/21/25 22:56 07/29/25 09:49 Dextrose 5% 1,000 Ml IVPB Infused PRN PRN Infusion Hypoglycemia Protocol Insulin Aspart 3 - 6 units 07/28/25 12:30 07/29/25 17:00 Insulin Aspart (*Bkc) 100 Units/Ml SUB-Q Not Given TIDWM [facility] Protocol Insulin Glargine 10 units 07/22/25 21:00 07/28/25 21:00 Insulin Glargine (*Bkc) 100 Units/Ml SUB-Q Not Given QHS [facility] Levothyroxine Sodium 75 mcg 07/22/25 06:30 07/29/25 06:04 Levothyroxine Sodium 75 Mcg Tablet PO Not Given DAILY@0630 [facility] Lidocaine 1 patch 07/22/25 04:21 Lidocaine 5% Patch TRANSDERM DAILY PRN back pain. Magnesium Oxide 400 mg 07/22/25 09:00 07/29/25 09:23 Magnesium Oxide 400 Mg Tablet PO Not Given DAILY GALINA Metoprolol Succinate 25 mg 07/22/25 09:00 07/29/25 09:23 Metoprolol Succinate Ext Rel 25 Mg Tabcr PO Not Given DAILY GALINA Nortriptyline HCl 10 mg 07/22/25 21:00 07/28/25 21:00 Nortriptyline Hcl 10 Mg Capsule PO Not Given HS [facility] Pantoprazole Sodium 40 mg 07/22/25 09:00 07/29/25 09:24 Pantoprazole 40 Mg Tablet PO Not Given QAM [facility] Polyethylene Glycol 17 gm 07/22/25 03:53 Polyethylene Glycol 3350 17 Gm Powd.Pack PO DAILY PRN Constipation Sodium Chloride 1 gm 07/24/25 09:00 07/29/25 17:47 Sodium Chloride 1 Gm Tablet PO 1 gm TID GALINA Administration Sucralfate 1 gm 07/22/25 11:30 07/29/25 17:47 Sucralfate 1 Gm Tablet PO 1 gm ACHS [facility] Administration Vitamin D 125 mcg 07/22/25 09:00 07/29/25 09:22 Cholecalciferol (Vitamin D3) 125 Mcg (5,000 Units) Tablet PO Not Given DAILY [facility] Radiology Results: ITS Impressions Chest/Abdomen/Pelvis CT 07/21/25 17:48 IMPRESSION: 1. Probable CHF. 2. Cirrhotic disease of the liver with small amount of probable ascites. 3. Probable cystitis. Chest X-Ray 07/27/25 08:21 IMPRESSION: 1. Left lower lobe atelectasis and/or pleural effusion. 2. Mild interstitial pulmonary edema. Labs Labs: Laboratory Tests 07/29/25 05:14 07/29/25 05:14 Calcium 8.3 L Magnesium 2.2 Total Bilirubin 4.5 H AST 61 H ALT 51 H Alkaline Phosphatase 397 H Total Protein 7.5 Albumin 3.6 TSH 8.350 H Random Cortisol 11.30
[2025-07-29] MEDS: SODIUM CHLORIDE 1 GM TABLET PO ×2 (13:17→17:47)
[2025-07-29] MEDS: SUCRALFATE 1 GM TABLET PO ×3 (13:18→20:33)
[2025-07-29 13:39] VITALS: BP 94/79; PULSE 91; RESP 16; TEMP 35.6; O2SAT 99
--- NOTE | 2025-07-29 14:16 | PCPTNOTE ---
Attempted to see patient for PT, however patient refused. Patient reported she was still eating her lunch and did not want to do therapy.
--- NOTE | 2025-07-29 14:57 | PM.IMPN ---
Progress Note: A&P Assessment and Plan (1) CHF exacerbation: Qualifiers: Heart failure type: combined systolic and diastolic Qualified Code(s): I50.43 - Acute on chronic combined systolic (congestive) and diastolic (congestive) heart failure Code(s): I50.9 - Heart failure, unspecified Status: Acute Assessment and Plan: Treated with IV Bumex in the ED, with significant improvement in clinical status. COnitneu metoprolol, bumex on hold for Hyponatremia cardiology following (2) Pulmonary hypertension: Code(s): I27.20 - Pulmonary hypertension, unspecified Status: Acute Assessment and Plan: continue above care (3) Nonischemic cardiomyopathy: Code(s): I42.8 - Other cardiomyopathies Status: Acute Assessment and Plan: Cardiology on board, GDMT on hold due to blood pressure, to be resumed when blood pressure allows (4) CHF due to valvular disease: Code(s): I50.9 - Heart failure, unspecified; I38 - Endocarditis, valve unspecified Status: Acute Assessment and Plan: On chronic antibiotic therapy-cephalexin Continue at this time (5) Chronic hypotension: Code(s): I95.89 - Other hypotension Status: Acute Assessment and Plan: Blood pressure medications on hold (6) Hyponatremia: Code(s): E87.1 - Hypo-osmolality and hyponatremia Status: Acute Assessment and Plan: Could be secondary to fluid overload, will repeat sodium with fluid restriction at this time. Unclear if acute or chronic however patient has baseline intellectual disability which may affect her ability to ascertain neurological change. Na improving 123, from 118 Continue Salt tablets and Lasix per Nephrology Nephrology following (7) Type 2 diabetes mellitus with hyperglycemia: Qualifiers: Diabetes mellitus custodial insulin use: with supervisor intermediates use Qualified Code(s): E11.65 - Type 2 diabetes mellitus with hyperglycemia; Z79.4 - group home (current) use of insulin Code(s): E11.65 - Type 2 diabetes mellitus with hyperglycemia Status: Chronic Assessment and Plan: Spoke with patient's sisters who did mention patient gets more irritable when her blood sugar is below 130. Will maintain random blood sugar above 130 given this information Insulin sliding scale at this time (8) Atrial fibrillation: Qualifiers: Atrial fibrillation type: permanent Qualified Code(s): I48.21 - Permanent atrial fibrillation Code(s): I48.91 - Unspecified atrial fibrillation Status: Chronic Assessment and Plan: History of atrial fibrillation on anticoagulation and metoprolol Continue Metoprolol and Eliquis (9) Acute kidney injury: Code(s): N17.9 - Acute kidney failure, unspecified Status: Acute Assessment and Plan: Creatinine mildly elevated to 1.18from 0.99 yesterday, prior baseline was 0.71 in July 04. Could be secondary to hypotension or CHF exacerbation proper, or use of IV Bumex Will trend renal function at this time BUme on hold Cr 1.93 today (10) Anxiety: Code(s): F41.9 - Anxiety disorder, unspecified Status: Acute Assessment and Plan: The patient's sister's report that she becomes very irritable when she is not on her buspirone which is a home medication. Buspirone has been started b.i.d. Plan Hyperkalemia K 5.0 S/p [facility] Nephrology following Hypoglycemia BG 54 s/p Dextrose Hold insulin, continue close blood glucose monitoring DVT prophylaxis on Eliquis Awaiting improvement in Sodium for discharge Subjective Date/time seen: 07/29/25 14:57 Interval history: Comfortable at bedside Na 123, improving Review of Systems Review of Systems: Unobtainable due to patient's intellectual disability Exam Narrative: Weight 104 kg BMI 34.9 Objective Data Vital Signs Vital Signs: Vital Signs - 24 hr 07/29/25 03:15 07/29/25 05:34 07/29/25 08:00 Temperature 97.4 F L Pulse Rate 79 Respiratory Rate 16 Blood Pressure 124/89 Pulse Oximetry 99 Oxygen Delivery Room Air Room Air 07/29/25 13:39 Temperature 96.1 F L Pulse Rate 91 Respiratory Rate 16 Blood Pressure 94/79 L Pulse Oximetry 99 Oxygen Delivery Intake/Output Intake/Output: Intake & Output 07/26/25 07/27/25 07/28/25 07/29/25 23:59 23:59 23:59 23:59 Intake Total 800 1257.5 1380 520 Output Total 100 Balance 800 1257.5 1280 520 Meds/Results Medications: Active Medications Generic Name Dose Route Start Last Admin Trade Name Freq PRN Reason Stop Dose Admin Acetaminophen 650 mg 07/22/25 00:30 07/26/25 08:10 Acetaminophen 325 Mg Tablet PO 650 mg Q6H PRN Administration Mild Pain (1-3) or Fever Albuterol 2 puff 07/22/25 03:53 Albuterol Sulfate (*Sp) Aerosol 1 Puff INHALATION Q6H PRN Shortness Of Breath Or Wheezing Apixaban 5 mg 07/22/25 09:00 07/29/25 09:22 Apixaban 5 Mg Tablet PO Not Given Q12HR [facility] Bumetanide 1 mg 07/25/25 09:00 07/25/25 08:47 Bumetanide 1 Mg Tablet PO 1 mg On Hold: 07/25/25 11:52 DAILY [facility] Administration Buspirone HCl 10 mg 07/22/25 09:00 07/29/25 09:22 Buspirone Hcl 10 Mg Tablet PO Not Given Q12HR [facility] Cephalexin HCl 1,000 mg 07/22/25 04:25 07/29/25 06:03 Cephalexin 500 Mg Capsule PO Not Given Q12H [facility] Cyanocobalamin 500 mcg 07/22/25 09:00 07/29/25 09:22 Cyanocobalamin 500 Mcg Tablet PO Not Given DAILY [facility] Dextrose 12.5 gm 07/21/25 22:56 07/29/25 01:01 Dextrose 50% 25 Gm/50 Ml Syringe IV PUSH 12.5 gm PRN PRN Administration Hypoglycemia Protocol Docusate Sodium 100 mg 07/22/25 09:00 07/29/25 09:23 Docusate Sodium 100 Mg Capsule PO Not Given BID [facility] Empagliflozin 10 mg 07/22/25 09:00 07/29/25 09:23 Empagliflozin 10 Mg Tablet PO Not Given DAILY [facility] Escitalopram Oxalate 10 mg 07/22/25 09:00 07/29/25 09:23 Escitalopram Oxalate 10 Mg Tablet PO Not Given DAILY [facility] Famotidine 20 mg 07/22/25 09:00 07/29/25 09:07 Famotidine 20 Mg/2 Ml Vial IV PUSH 20 mg Q12HR [facility] Administration Ferrous Sulfate 325 mg 07/22/25 09:00 07/29/25 09:23 Ferrous Sulfate 325 Mg Tablet PO Not Given DAILY [facility] Fluticasone Propionate 1 spray 07/22/25 03:53 Fluticasone Propionate 0.05% Na Spr 16 Gm Btl (*Bkc) NASAL DAILY PRN allergy symptoms/Rhinitis. Furosemide 10 mg 07/26/25 17:00 07/29/25 09:23 Furosemide 10 Mg Tablet PO Not Given BID [facility] Glucagon 1 mg 07/21/25 22:56 Glucagon For Inj 1 Mg Vial IM PRN PRN Hypoglycemia Protocol Glucose 15 gm 07/21/25 22:56 Glucose Oral Gel 15 Gm Of Glucse In 37.5 Gm Tube PO PRN PRN Hypoglycemia Protocol Hydroxyzine HCl 25 mg 07/22/25 03:53 07/26/25 21:06 Hydroxyzine Hcl 25 Mg Tablet PO 25 mg Q4H PRN Administration itching or anxiety. Dextrose 1,000 mls @ 100 mls/hr 07/21/25 22:56 07/29/25 09:49 Dextrose 5% 1,000 Ml IVPB Infused PRN PRN Infusion Hypoglycemia Protocol Insulin Aspart 3 - 6 units 07/28/25 12:30 07/29/25 12:04 Insulin Aspart (*Bkc) 100 Units/Ml SUB-Q Not Given TIDWM [facility] Protocol Insulin Glargine 10 units 07/22/25 21:00 07/28/25 21:00 Insulin Glargine (*Bkc) 100 Units/Ml SUB-Q Not Given QHS [facility] Levothyroxine Sodium 75 mcg 07/22/25 06:30 07/29/25 06:04 Levothyroxine Sodium 75 Mcg Tablet PO Not Given DAILY@0630 [facility] Lidocaine 1 patch 07/22/25 04:21 Lidocaine 5% Patch TRANSDERM DAILY PRN back pain. Magnesium Oxide 400 mg 07/22/25 09:00 07/29/25 09:23 Magnesium Oxide 400 Mg Tablet PO Not Given DAILY [facility] Metoprolol Succinate 25 mg 07/22/25 09:00 07/29/25 09:23 Metoprolol Succinate Ext Rel 25 Mg Tabcr PO Not Given DAILY [facility] Nortriptyline HCl 10 mg 07/22/25 21:00 07/28/25 21:00 Nortriptyline Hcl 10 Mg Capsule PO Not Given HS [facility] Pantoprazole Sodium 40 mg 07/22/25 09:00 07/29/25 09:24 Pantoprazole 40 Mg Tablet PO Not Given QAM [facility] Polyethylene Glycol 17 gm 07/22/25 03:53 Polyethylene Glycol 3350 17 Gm Powd.Pack PO DAILY PRN Constipation Sodium Chloride 1 gm 07/24/25 09:00 07/29/25 13:17 Sodium Chloride 1 Gm Tablet PO 1 gm TID [facility] Administration Sucralfate 1 gm 07/22/25 11:30 07/29/25 13:18 Sucralfate 1 Gm Tablet PO 1 gm ACHS [facility] Administration Vitamin D 125 mcg 07/22/25 09:00 07/29/25 09:22 Cholecalciferol (Vitamin D3) 125 Mcg (5,000 Units) Tablet PO Not Given DAILY [facility] Radiology Results: ITS Impressions Chest/Abdomen/Pelvis CT 07/21/25 17:48 IMPRESSION: 1. Probable CHF. 2. Cirrhotic disease of the liver with small amount of probable ascites. 3. Probable cystitis. Chest X-Ray 07/27/25 08:21 IMPRESSION: 1. Left lower lobe atelectasis and/or pleural effusion. 2. Mild interstitial pulmonary edema. Labs Labs: Laboratory Results - last 24 hr 07/28/25 07/28/25 07/28/25 14:50 16:36 21:23 WBC RBC Hgb Hct MCV MCH MCHC RDW Plt Count MPV Immature Gran % (Auto) Neut % (Auto) Lymph % (Auto) [place] % (Auto) Eos % (Auto) Baso % (Auto) Lymph # (Auto) [place] # (Auto) Eos # (Auto) Baso # (Auto) Abs Immat Gran (auto) Absolute Neuts (auto) Absolute Nucleated RBC Nucleated RBC % Sodium 122 L Potassium Chloride Carbon Dioxide Anion Gap BUN Creatinine Estim Creat Clear Calc Estimated GFR Glucose POC Capillary Glucose 150 H 85 Calcium Magnesium Total Bilirubin AST ALT Alkaline Phosphatase Total Protein Albumin TSH Random Cortisol 07/29/25 07/29/25 07/29/25 00:34 01:42 01:55 WBC RBC Hgb Hct MCV MCH MCHC RDW Plt Count MPV Immature Gran % (Auto) Neut % (Auto) Lymph % (Auto) [place] % (Auto) Eos % (Auto) Baso % (Auto) Lymph # (Auto) [place] # (Auto) Eos # (Auto) Baso # (Auto) Abs Immat Gran (auto) Absolute Neuts (auto) Absolute Nucleated RBC Nucleated RBC % Sodium 123 L Potassium 4.2 Chloride 90 L Carbon Dioxide 24 Anion Gap 9 BUN 27 H Creatinine 0.83 Estim Creat Clear Calc 79 Estimated GFR > 60 Glucose 45 L* POC Capillary Glucose 65 82 Calcium 8.4 Magnesium Total Bilirubin AST ALT Alkaline Phosphatase Total Protein Albumin TSH Random Cortisol 07/29/25 07/29/25 07/29/25 02:36 03:20 05:14 WBC 5.1 RBC 3.74 L Hgb 12.7 Hct 38.0 MCV 101.6 H MCH 34.0 MCHC 33.4 RDW 16.6 H Plt Count 252 MPV 9.0 Immature Gran % (Auto) 0.4 Neut % (Auto) 64.9 Lymph % (Auto) 15.1 L [place] % (Auto) 14.3 H Eos % (Auto) 4.1 Baso % (Auto) 1.2 Lymph # (Auto) 0.77 L [place] # (Auto) 0.7 H Eos # (Auto) 0.2 Baso # (Auto) 0.1 Abs Immat Gran (auto) 0.02 Absolute Neuts (auto) 3.3 Absolute Nucleated RBC 0.000 Nucleated RBC % 0.0 Sodium 123 L Potassium 4.0 Chloride 91 L Carbon Dioxide 25 Anion Gap 7 BUN 25 H Creatinine 0.88 Estim Creat Clear Calc 75 Estimated GFR > 60 Glucose 54 L* POC Capillary Glucose 73 154 H Calcium 8.3 L Magnesium 2.2 Total Bilirubin 4.5 H AST 61 H ALT 51 H Alkaline Phosphatase 397 H Total Protein 7.5 Albumin 3.6 TSH 8.350 H Random Cortisol 11.30 07/29/25 07/29/25 07/29/25 06:37 08:44 11:57 WBC RBC Hgb Hct MCV MCH MCHC RDW Plt Count MPV Immature Gran % (Auto) Neut % (Auto) Lymph % (Auto) [place] % (Auto) Eos % (Auto) Baso % (Auto) Lymph # (Auto) [place] # (Auto) Eos # (Auto) Baso # (Auto) Abs Immat Gran (auto) Absolute Neuts (auto) Absolute Nucleated RBC Nucleated RBC % Sodium Potassium Chloride Carbon Dioxide Anion Gap BUN Creatinine Estim Creat Clear Calc Estimated GFR Glucose POC Capillary Glucose 141 H 91 99 Calcium Magnesium Total Bilirubin AST ALT Alkaline Phosphatase Total Protein Albumin TSH Random Cortisol Quality VTE Prophylaxis VTE prophylaxis: pharmacologic ordered (Continue home Eliquis.)
[2025-07-29 15:09] LABS: Albumin 3.2 g/dL (2.9-4.4); Alpha-1-Globulin 0.2 g/dL (0.0-0.4); Alpha-2-Globulin 0.6 g/dL (0.4-1.0); Gamma Globulin 1.8 g/dL (0.4-1.8)
[2025-07-29] MEDS: DOCUSATE SODIUM 100 MG CAPSULE PO (17:47)
[2025-07-29] MEDS: CEPHALEXIN 500 MG CAPSULE 1000 MG PO (17:47)
[2025-07-29] MEDS: FUROSEMIDE 10 MG TABLET PO (17:47)
[2025-07-29] MEDS: NORTRIPTYLINE HCL 10 MG CAPSULE PO (20:33)
[2025-07-29] MEDS: APIXABAN 5 MG TABLET PO (20:33)
[2025-07-29 21:03] VITALS: BP 119/46; PULSE 100; RESP 16; TEMP 36.3; O2SAT 99
[2025-07-29 21:42] VITALS: O2SAT 99
--- NOTE | 2025-07-30 00:10 | PC.NURSE ---
Pt POC glucose 224, Lantus held due to hypoglycemic episodes night beo
--- NOTE | 2025-07-30 00:12 | PC.NURSE ---
Dr. 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 If glucose reading is over 300 or less than 60 to notify him and continue Q4H glucose readings. Pt 2100 glucose reading 225, vital signs stable, denies pain at this time. Call light/personal belongings with reach os side table. bed in lowest position, fall precaution alarm set to Zone 2. Will continue to monitor progress.
[2025-07-30] MEDS: MELATONIN 5 MG TABLET PO (00:50)
[2025-07-30] MEDS: CEPHALEXIN 500 MG CAPSULE 1000 MG PO ×2 (04:22→17:29)
[2025-07-30 04:36] VITALS: BP 97/63; PULSE 106; RESP 16; TEMP 36.4; O2SAT 99
[2025-07-30] MEDS: SUCRALFATE 1 GM TABLET PO ×4 (06:02→21:00)
[2025-07-30] MEDS: LEVOTHYROXINE SODIUM 75 MCG TABLET PO (06:03)
[2025-07-30 06:52] LABS: Hematocrit 38.4 % (37.0-47.0); Hemoglobin 12.7 g/dL (12.0-15.0); Immature Granulocyte Percent A 0.4 % (0-0.5); Lymphocytes Absolute Auto 0.62 K/mm3 (0.9-3.2); Mean Corpuscular HGB Conc 33.1 g/dl (32-36); Mean Corpuscular Hemoglobin 34.0 pg (26-34); Mean Corpuscular Volume 102.7 fl (80-100); Nucleated Red Blood Cells Absolute Auto 0.000 K/mm3 (0.0-0.012); Nucleated Red Blood Cells Perc 0.0 % (0.0-0.2); Platelet Count Result 252 k/mm3 (150-375); Red Blood Count 3.74 M/mm3 (4.2-5.4); White Blood Count 4.8 K/mm3 (4.5-10.0)
[2025-07-30 07:38] LABS: Alanine Aminotransferase 42 U/L (6-35); Albumin Level 3.5 g/dL (3.5-5.1); Alkaline Phosphatase 420 U/L (38-126); Anion Gap 8 mmol/L (4-12); Aspartate Amino Transferase 61 U/L (14-36); Bilirubin,Total 4.6 mg/dL (0.2-1.3); Blood Urea Nitrogen 20 mg/dL (7-17); Calcium 8.1 mg/dL (8.4-10.2); Carbon Dioxide 24 mmol/L (22-30); Chloride 90 mmol/L (98-107); Estimated CRCL calculation 87 ml/min; Estimated Glomerular Filt Rate > 60; Glucose 179 mg/dL (65-110); Magnesium 2.2 mg/dL (1.6-2.3); Potassium 4.4 mmol/L (3.4-5.0); Sodium 122 mmol/L (137-145); Total Protein 7.3 g/dL (6.3-8.2)
[2025-07-30] MEDS: DOCUSATE SODIUM 100 MG CAPSULE PO ×2 (09:15→17:29)
[2025-07-30] MEDS: PANTOPRAZOLE 40 MG TABLET PO (09:15)
[2025-07-30] MEDS: ESCITALOPRAM OXALATE 10 MG TABLET PO (09:16)
[2025-07-30] MEDS: METOPROLOL SUCCINATE EXT REL 25 MG TABCR PO (09:16)
[2025-07-30] MEDS: MAGNESIUM OXIDE 400 MG TABLET PO (09:16)
[2025-07-30] MEDS: APIXABAN 5 MG TABLET PO ×2 (09:16→21:00)
[2025-07-30] MEDS: CHOLECALCIFEROL (VITAMIN D3) 125 MCG (5,000 UNITS) TABLET PO (09:16)
[2025-07-30] MEDS: FAMOTIDINE 20 MG/2 ML VIAL IV PUSH ×2 (09:16→21:00)
[2025-07-30] MEDS: FERROUS SULFATE 325 MG TABLET PO (09:16)
[2025-07-30] MEDS: SODIUM CHLORIDE 1 GM TABLET PO ×3 (09:16→17:29)
[2025-07-30] MEDS: FUROSEMIDE 10 MG TABLET PO ×4 (09:16→21:04)
[2025-07-30] MEDS: CYANOCOBALAMIN 500 MCG TABLET PO (09:16)
[2025-07-30] MEDS: EMPAGLIFLOZIN 10 MG TABLET PO (09:16)
--- NOTE | 2025-07-30 11:14 | P.PNIM_ITS ---
Progress Note: A&P Assessment and Plan (1) CHF exacerbation: Qualifiers: Heart failure type: combined systolic and diastolic Qualified Code(s): I50.43 - Acute on chronic combined systolic (congestive) and diastolic (congestive) heart failure Code(s): I50.9 - Heart failure, unspecified Status: Acute Assessment and Plan: Treated with IV Bumex in the ED, with significant improvement in clinical status. Marvelithorace metoprolol, bumex on hold for Hyponatremia cardiology following 07/30: Patient currently on Bumex 1 mg p.o. q.d., furosemide 10 mg p.o. t.i.d., empagliflozin 10 mg p.o. q.d., metoprolol succinate 25 mg p.o. q.d. 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 Unclear if acute or chronic however patient has baseline intellectual disability which may affect her ability to ascertain neurological change. Na improving 123, from 118 Continue Salt tablets and Lasix per Nephrology Nephrology following 07/30: Patient currently on sodium chloride tab 1 g p.o. t.i.d., Bumex 1 mg p.o. q.d., furosemide 10 mg p.o. t.i.d.. Sodium 122 (7) Type 2 diabetes mellitus with hyperglycemia: Qualifiers: Diabetes mellitus snf insulin use: with snf use Qualified Code(s): E11.65 - Type 2 diabetes mellitus with hyperglycemia; Z79.4 - [facility]P (current) use of insulin Code(s): E11.65 - Type 2 diabetes mellitus with hyperglycemia Status: Chronic Assessment and Plan: Spoke with patient's sisters who did mention patient gets more irritable when her blood sugar is below 130. Will maintain random blood sugar above 130 given this information Insulin sliding scale at this time (8) Atrial fibrillation: Qualifiers: Atrial fibrillation type: permanent Qualified Code(s): I48.21 - Permanent atrial fibrillation Code(s): I48.91 - Unspecified atrial fibrillation Status: Chronic Assessment and Plan: History of atrial fibrillation on anticoagulation and metoprolol Continue Metoprolol and Eliquis (9) Acute kidney injury: Code(s): N17.9 - Acute kidney failure, unspecified Status: Acute Assessment and Plan: Creatinine mildly elevated to 1.18from 0.99 yesterday, prior baseline was 0.71 in July 04. Could be secondary to hypotension or CHF exacerbation proper, or use of IV Bumex Will trend renal function at this time Currently on Bumex 1 mg p.o. q.d. Currently on Lasix a 10 mg p.o. t.i.d. Cr 1.93 today (10) Anxiety: Code(s): F41.9 - Anxiety disorder, unspecified Status: Acute Assessment and Plan: The patient's sister's report that she becomes very irritable when she is not on her buspirone which is a home medication. Buspirone has been started b.i.d. Plan Hyperkalemia K 5.0 S/p [facility] Nephrology following Hypoglycemia BG 54 s/p Dextrose Hold insulin, continue close blood glucose monitoring DVT prophylaxis on Eliquis Awaiting improvement in Sodium for discharge Subjective Date/time seen: 07/30/25 11:14 Interval history: No acute event overnight. Review of Systems Review of Systems: Unobtainable due to patient's intellectual disability Objective Data Vital Signs Vital Signs: Vital Signs - 24 hr 07/29/25 13:39 07/29/25 20:52 07/29/25 21:03 Temperature 96.1 F L 97.4 F L Pulse Rate 91 100 Respiratory Rate 16 16 Blood Pressure 94/79 L 119/46 L Pulse Oximetry 99 99 Oxygen Delivery Room Air 07/29/25 21:42 07/30/25 04:36 07/30/25 08:00 Temperature 97.5 F L Pulse Rate 106 H Respiratory Rate 16 Blood Pressure 97/63 L Pulse Oximetry 99 99 Oxygen Delivery Room Air Room Air Intake/Output Intake/Output: Intake & Output 07/27/25 07/28/25 07/29/25 07/30/25 23:59 23:59 23:59 23:59 Intake Total 1257.5 1380 878 640 Output Total 100 Balance 1257.5 1280 878 640 Meds/Results Medications: Active Medications Generic Name Dose Route Start Last Admin Trade Name Freq PRN Reason Stop Dose Admin Acetaminophen 650 mg 07/22/25 00:30 07/26/25 08:10 Acetaminophen 325 Mg Tablet PO 650 mg Q6H PRN Administration Mild Pain (1-3) or Fever Albuterol 2 puff 07/22/25 03:53 Albuterol Sulfate (*Sp) Aerosol 1 Puff INHALATION Q6H PRN Shortness Of Breath Or Wheezing Apixaban 5 mg 07/22/25 09:00 07/30/25 09:16 Apixaban 5 Mg Tablet PO 5 mg Q12HR [facility] Administration Bumetanide 1 mg 07/25/25 09:00 07/25/25 08:47 Bumetanide 1 Mg Tablet PO 1 mg On Hold: 07/25/25 11:52 DAILY [facility] Administration Buspirone HCl 10 mg 07/22/25 09:00 07/30/25 09:16 Buspirone Hcl 10 Mg Tablet PO 10 mg Q12HR [facility] Administration Cephalexin HCl 1,000 mg 07/22/25 04:25 07/30/25 04:22 Cephalexin 500 Mg Capsule PO 1,000 mg Q12H [facility] Administration Cyanocobalamin 500 mcg 07/22/25 09:00 07/30/25 09:16 Cyanocobalamin 500 Mcg Tablet PO 500 mcg DAILY [facility] Administration Dextrose 12.5 gm 07/21/25 22:56 07/29/25 01:01 Dextrose 50% 25 Gm/50 Ml Syringe IV PUSH 12.5 gm PRN PRN Administration Hypoglycemia Protocol Docusate Sodium 100 mg 07/22/25 09:00 07/30/25 09:15 Docusate Sodium 100 Mg Capsule PO 100 mg BID [facility] Administration Empagliflozin 10 mg 07/22/25 09:00 07/30/25 09:16 Empagliflozin 10 Mg Tablet PO 10 mg DAILY [facility] Administration Escitalopram Oxalate 10 mg 07/22/25 09:00 07/30/25 09:16 Escitalopram Oxalate 10 Mg Tablet PO 10 mg DAILY [facility] Administration Famotidine 20 mg 07/22/25 09:00 07/30/25 09:16 Famotidine 20 Mg/2 Ml Vial IV PUSH 20 mg Q12HR [facility] Administration Ferrous Sulfate 325 mg 07/22/25 09:00 07/30/25 09:16 Ferrous Sulfate 325 Mg Tablet PO 325 mg DAILY [facility] Administration Fluticasone Propionate 1 spray 07/22/25 03:53 Fluticasone Propionate 0.05% Na Spr 16 Gm Btl (*Bkc) NASAL DAILY PRN allergy symptoms/Rhinitis. Furosemide 10 mg 07/30/25 13:00 Furosemide 10 Mg Tablet PO TID [facility] Glucagon 1 mg 07/21/25 22:56 Glucagon For Inj 1 Mg Vial IM PRN PRN Hypoglycemia Protocol Glucose 15 gm 07/21/25 22:56 Glucose Oral Gel 15 Gm Of Glucse In 37.5 Gm Tube PO PRN PRN Hypoglycemia Protocol Hydroxyzine HCl 25 mg 07/22/25 03:53 07/29/25 20:35 Hydroxyzine Hcl 25 Mg Tablet PO 25 mg Q4H PRN Administration itching or anxiety. Dextrose 1,000 mls @ 100 mls/hr 07/21/25 22:56 07/29/25 09:49 Dextrose 5% 1,000 Ml IVPB Infused PRN PRN Infusion Hypoglycemia Protocol Insulin Aspart 3 - 6 units 07/28/25 12:30 07/30/25 09:09 Insulin Aspart (*Bkc) 100 Units/Ml SUB-Q Not Given TIDWM [facility] Protocol Insulin Glargine 10 units 07/22/25 21:00 07/29/25 20:50 Insulin Glargine (*Bkc) 100 Units/Ml SUB-Q Not Given QHS [facility] Levothyroxine Sodium 75 mcg 07/22/25 06:30 07/30/25 06:03 Levothyroxine Sodium 75 Mcg Tablet PO 75 mcg DAILY@0630 [facility] Administration Lidocaine 1 patch 07/22/25 04:21 Lidocaine 5% Patch TRANSDERM DAILY PRN back pain. Magnesium Oxide 400 mg 07/22/25 09:00 07/30/25 09:16 Magnesium Oxide 400 Mg Tablet PO 400 mg DAILY [facility] Administration Metoprolol Succinate 25 mg 07/22/25 09:00 07/30/25 09:16 Metoprolol Succinate Ext Rel 25 Mg Tabcr PO 25 mg DAILY [facility] Administration Nortriptyline HCl 10 mg 07/22/25 21:00 07/29/25 20:33 Nortriptyline Hcl 10 Mg Capsule PO 10 mg HS [facility] Administration Pantoprazole Sodium 40 mg 07/22/25 09:00 07/30/25 09:15 Pantoprazole 40 Mg Tablet PO 40 mg QAM [facility] Administration Polyethylene Glycol 17 gm 07/22/25 03:53 Polyethylene Glycol 3350 17 Gm Powd.Pack PO DAILY PRN Constipation Sodium Chloride 1 gm 07/24/25 09:00 07/30/25 09:16 Sodium Chloride 1 Gm Tablet PO 1 gm TID [facility] Administration Sucralfate 1 gm 07/22/25 11:30 07/30/25 06:02 Sucralfate 1 Gm Tablet PO 1 gm ACHS [facility] Administration Vitamin D 125 mcg 07/22/25 09:00 07/30/25 09:16 Cholecalciferol (Vitamin D3) 125 Mcg (5,000 Units) Tablet PO 125 mcg DAILY [facility] Administration Radiology Results: ITS Impressions Chest/Abdomen/Pelvis CT 07/21/25 17:48 IMPRESSION: 1. Probable CHF. 2. Cirrhotic disease of the liver with small amount of probable ascites. 3. Probable cystitis. Chest X-Ray 07/27/25 08:21 IMPRESSION: 1. Left lower lobe atelectasis and/or pleural effusion. 2. Mild interstitial pulmonary edema. Labs Labs: Laboratory Results - last 24 hr 07/27/25 07/29/25 07/29/25 05:45 11:57 16:55 WBC RBC Hgb Hct MCV MCH MCHC RDW Plt Count MPV Immature Gran % (Auto) Neut % (Auto) Lymph % (Auto) [place] % (Auto) Eos % (Auto) Baso % (Auto) Lymph # (Auto) [place] # (Auto) Eos # (Auto) Baso # (Auto) Abs Immat Gran (auto) Absolute Neuts (auto) Absolute Nucleated RBC Nucleated RBC % Sodium Potassium Chloride Carbon Dioxide Anion Gap BUN Creatinine Estim Creat Clear Calc Estimated GFR Glucose POC Capillary Glucose 99 156 H Calcium Magnesium Total Bilirubin AST ALT Alkaline Phosphatase Total Protein Total Protein (PEP) 6.8 Albumin Albumin (PEP) 3.2 Globulin (PEP) 3.6 Albumin/Globulin Ratio 0.9 Glmyk-5-Urflajsgr 0.2 Wudnu-4-Ogrmljcud 0.6 Beta Globulins 1.1 Gamma Globulins 1.8 PEP Comment Comment Pr Electrophoresis MSpike Not observed 07/29/25 07/30/25 07/30/25 20:37 00:40 04:21 WBC RBC Hgb Hct MCV MCH MCHC RDW Plt Count MPV Immature Gran % (Auto) Neut % (Auto) Lymph % (Auto) [place] % (Auto) Eos % (Auto) Baso % (Auto) Lymph # (Auto) [place] # (Auto) Eos # (Auto) Baso # (Auto) Abs Immat Gran (auto) Absolute Neuts (auto) Absolute Nucleated RBC Nucleated RBC % Sodium Potassium Chloride Carbon Dioxide Anion Gap BUN Creatinine Estim Creat Clear Calc Estimated GFR Glucose POC Capillary Glucose 225 H 217 H 234 H Calcium Magnesium Total Bilirubin AST ALT Alkaline Phosphatase Total Protein Total Protein (PEP) Albumin Albumin (PEP) Globulin (PEP) Albumin/Globulin Ratio Kizpj-4-Fssyfwlzq Zhsbp-1-Dpbbhptef Beta Globulins Gamma Globulins PEP Comment Pr Electrophoresis MSpike 07/30/25 07/30/25 05:38 07:49 WBC 4.8 RBC 3.74 L Hgb 12.7 Hct 38.4 MCV 102.7 H MCH 34.0 MCHC 33.1 RDW 17.1 H Plt Count 252 MPV 9.5 Immature Gran % (Auto) 0.4 Neut % (Auto) 66.6 Lymph % (Auto) 13.0 L [place] % (Auto) 12.8 H Eos % (Auto) 5.9 H Baso % (Auto) 1.3 H Lymph # (Auto) 0.62 L [place] # (Auto) 0.6 Eos # (Auto) 0.3 Baso # (Auto) 0.1 Abs Immat Gran (auto) 0.02 Absolute Neuts (auto) 3.2 Absolute Nucleated RBC 0.000 Nucleated RBC % 0.0 Sodium 122 L Potassium 4.4 Chloride 90 L Carbon Dioxide 24 Anion Gap 8 BUN 20 H Creatinine 0.76 Estim Creat Clear Calc 87 Estimated GFR > 60 Glucose 179 H POC Capillary Glucose 181 H Calcium 8.1 L Magnesium 2.2 Total Bilirubin 4.6 H AST 61 H ALT 42 H Alkaline Phosphatase 420 H Total Protein 7.3 Total Protein (PEP) Albumin 3.5 Albumin (PEP) Globulin (PEP) Albumin/Globulin Ratio Sjfoo-4-Cemjxcfhe Oubhn-6-Dkeyutkvr Beta Globulins Gamma Globulins PEP Comment Pr Electrophoresis MSpike Quality VTE Prophylaxis VTE prophylaxis: pharmacologic ordered (Continue home Eliquis.) Hospitalist MIPS Advance Care Plan I have confirmed that the patient's Advanced Care Plan is present, code status is documented, or surrogate decision maker is listed in patient medical record.: Yes Medication Reconciliation I have utilized all available resources to obtain, update and review the patients current medications (includes all prescriptions, OTC, herbals, cannabis, and nutritional supplements).: Yes
--- NOTE | 2025-07-30 12:18 | P.PNNP_ITS ---
Progress Note: A&P Assessment and Plan (1) Hyponatremia: Code(s): E87.1 - Hypo-osmolality and hyponatremia Status: Acute Assessment and Plan: * continues to fluctuate * acute on chronic * baseline sodium seems to run 127 - 136mg/dL in the last year * however, has been in the normal range in the past as well * risk factors for low sodium: * prerenal factors * known CHF/cardiomyopathy * medications: - lexapro (SSRI) - nortriptyline - buspirone - diuretic therapy * thyroid disease * excessive fluid intake * liver cirrhosis * other(?) * evaluation noted to date: * TSH elevated (no T4 or T3 done) * cortisol on lower end - consider stim test * urine sodium > 40 * urine osmo> serum osmo * SPEP negative; UPEP pending * started on salt tabs * added low dose lasix given CXR findings * consider fluid restriction (but does not appear to be drinking that much) * s/p 3% saline on 07/28 -- consider repeat?? * follow trend of repeat sodium levels (2) Acute kidney injury: Code(s): N17.9 - Acute kidney failure, unspecified Status: Acute Assessment and Plan: * resolved * noted by trend of labs since 07/22/25 * however, baseline creatinine seems to run around 0.7 - 1.2mg/dl in the last year * creatinine has been relatively stable * due to previous diuretic use(?) versus contrast exposure (CT on 07/21) * however, underlying cardiomyopathy and GMDT may be playing a role * follow trend of repeat labs and UOP (3) Hyperkalemia: Code(s): E87.5 - Hyperkalemia Status: Acute Assessment and Plan: * noted by labs today (on 07/26) * s/p medical management with lokelma * due to previous spironolactone use versus fluctuating kidney function(?) * follow trend of K+ (4) CHF exacerbation: Qualifiers: Heart failure type: combined systolic and diastolic Qualified Code(s): I50.43 - Acute on chronic combined systolic (congestive) and diastolic (congestive) heart failure Code(s): I50.9 - Heart failure, unspecified Status: Acute Assessment and Plan: * mild exacerbation noted on admission * last Echo (02/22/25) noted: * left ventricular systolic function is mildly reduced, estimated at 40 - 45% * right ventricular systolic function is normal * mild to moderate mitral valve regurgitation * severe tricuspid valve regurgitation * diuretic therapy was on hold due to #1 * started on low dose lasix * Cardiology recommendations noted (5) Atrial fibrillation: Qualifiers: Atrial fibrillation type: permanent Qualified Code(s): I48.21 - Permanent atrial fibrillation Code(s): I48.91 - Unspecified atrial fibrillation Status: Chronic Assessment and Plan: * rate control strategy * on metoprolol * on Eliquis (6) Type 2 diabetes mellitus with hyperglycemia: Qualifiers: Diabetes mellitus custodial insulin use: with oysterman use Qualified Code(s): E11.65 - Type 2 diabetes mellitus with hyperglycemia; Z79.4 - extermination inspector (current) use of insulin Code(s): E11.65 - Type 2 diabetes mellitus with hyperglycemia Status: Chronic Assessment and Plan: * follow accu-cheks * glycemic control per hospitalist Will continue to follow. L Subjective Date/time seen: 07/30/25 12:18 Interval history: Follow-up for acute on chronic hyponatremia. Sodium remains stable but no significant improvement in the last 24 hours; no apparent distress noted at this time; mentation remains stable and at baseline; no events overnight or earlier this AM. Exam 2 Narrative: General: WD/WN female in NAD Heart: normal S1 and S2; no rub Lungs: clear anteriolry. decreased at bases Abdomen: soft, nontender, nondistended, positive bowel sounds Extremities: no cyanosis or clubbing; no edema Skin: no nodules Objective Data Vital Signs Vital Signs: Vital Signs Temp Pulse Resp BP Pulse Ox O2 Del Method 07/30/25 12:00 96.7 F L 101 H 22 H 110/78 99 07/30/25 08:00 Room Air 07/30/25 04:36 97.5 F L 106 H 16 97/63 L 99 07/29/25 21:42 99 Room Air 07/29/25 21:03 97.4 F L 100 16 119/46 L 99 07/29/25 20:52 Room Air Intake/Output Intake/Output: Intake & Output 07/27/25 07/28/25 07/29/25 07/30/25 23:59 23:59 23:59 23:59 Intake Total 1257.5 1380 878 980 Output Total 100 Balance 1257.5 1280 878 980 Meds/Results Medications: Active Medications Generic Name Dose Route Start Last Admin Trade Name Freq PRN Reason Stop Dose Admin Acetaminophen 650 mg 07/22/25 00:30 07/26/25 08:10 Acetaminophen 325 Mg Tablet PO 650 mg Q6H PRN Administration Mild Pain (1-3) or Fever Albuterol 2 puff 07/22/25 03:53 Albuterol Sulfate (*Sp) Aerosol 1 Puff INHALATION Q6H PRN Shortness Of Breath Or Wheezing Apixaban 5 mg 07/22/25 09:00 07/30/25 09:16 Apixaban 5 Mg Tablet PO 5 mg Q12HR GALINA Administration Bumetanide 1 mg 07/25/25 09:00 07/25/25 08:47 Bumetanide 1 Mg Tablet PO 1 mg On Hold: 07/25/25 11:52 DAILY GALINA Administration Buspirone HCl 10 mg 07/22/25 09:00 07/30/25 09:16 Buspirone Hcl 10 Mg Tablet PO 10 mg Q12HR GALINA Administration Cephalexin HCl 1,000 mg 07/22/25 04:25 07/30/25 17:29 Cephalexin 500 Mg Capsule PO 1,000 mg Q12H GALINA Administration Cyanocobalamin 500 mcg 07/22/25 09:00 07/30/25 09:16 Cyanocobalamin 500 Mcg Tablet PO 500 mcg DAILY GALINA Administration Dextrose 12.5 gm 07/21/25 22:56 07/29/25 01:01 Dextrose 50% 25 Gm/50 Ml Syringe IV PUSH 12.5 gm PRN PRN Administration Hypoglycemia Protocol Docusate Sodium 100 mg 07/22/25 09:00 07/30/25 17:29 Docusate Sodium 100 Mg Capsule PO 100 mg BID GALINA Administration Empagliflozin 10 mg 07/22/25 09:00 07/30/25 09:16 Empagliflozin 10 Mg Tablet PO 10 mg DAILY GALINA Administration Escitalopram Oxalate 10 mg 07/22/25 09:00 07/30/25 09:16 Escitalopram Oxalate 10 Mg Tablet PO 10 mg DAILY GALINA Administration Famotidine 20 mg 07/22/25 09:00 07/30/25 09:16 Famotidine 20 Mg/2 Ml Vial IV PUSH 20 mg Q12HR GALINA Administration Ferrous Sulfate 325 mg 07/22/25 09:00 07/30/25 09:16 Ferrous Sulfate 325 Mg Tablet PO 325 mg DAILY GALINA Administration Fluticasone Propionate 1 spray 07/22/25 03:53 Fluticasone Propionate 0.05% Na Spr 16 Gm Btl (*Bkc) NASAL DAILY PRN allergy symptoms/Rhinitis. Furosemide 10 mg 07/30/25 13:00 07/30/25 17:29 Furosemide 10 Mg Tablet PO 10 mg TID GALINA Administration Glucagon 1 mg 07/21/25 22:56 Glucagon For Inj 1 Mg Vial IM PRN PRN Hypoglycemia Protocol Glucose 15 gm 07/21/25 22:56 Glucose Oral Gel 15 Gm Of Glucse In 37.5 Gm Tube PO PRN PRN Hypoglycemia Protocol Hydroxyzine HCl 25 mg 07/22/25 03:53 07/29/25 20:35 Hydroxyzine Hcl 25 Mg Tablet PO 25 mg Q4H PRN Administration itching or anxiety. Dextrose 1,000 mls @ 100 mls/hr 07/21/25 22:56 07/29/25 09:49 Dextrose 5% 1,000 Ml IVPB Infused PRN PRN Infusion Hypoglycemia Protocol Insulin Aspart 3 - 6 units 07/28/25 12:30 07/30/25 17:30 Insulin Aspart (*Bkc) 100 Units/Ml SUB-Q 3 units TIDWM GALINA Administration Protocol Insulin Glargine 10 units 07/22/25 21:00 07/29/25 20:50 Insulin Glargine (*Bkc) 100 Units/Ml SUB-Q Not Given QHS GALINA Levothyroxine Sodium 75 mcg 07/22/25 06:30 07/30/25 06:03 Levothyroxine Sodium 75 Mcg Tablet PO 75 mcg DAILY@0630 GALINA Administration Lidocaine 1 patch 07/22/25 04:21 Lidocaine 5% Patch TRANSDERM DAILY PRN back pain. Magnesium Oxide 400 mg 07/22/25 09:00 07/30/25 09:16 Magnesium Oxide 400 Mg Tablet PO 400 mg DAILY GALINA Administration Metoprolol Succinate 25 mg 07/22/25 09:00 07/30/25 09:16 Metoprolol Succinate Ext Rel 25 Mg Tabcr PO 25 mg DAILY GALINA Administration Nortriptyline HCl 10 mg 07/22/25 21:00 07/29/25 20:33 Nortriptyline Hcl 10 Mg Capsule PO 10 mg HS GALINA Administration Pantoprazole Sodium 40 mg 10/13/25 09:00 07/30/25 09:15 Pantoprazole 40 Mg Tablet PO 40 mg QAM GALINA Administration Polyethylene Glycol 17 gm 07/22/25 03:53 Polyethylene Glycol 3350 17 Gm Powd.Pack PO DAILY PRN Constipation Sodium Chloride 1 gm 07/24/25 09:00 07/30/25 17:29 Sodium Chloride 1 Gm Tablet PO 1 gm TID GALINA Administration Sucralfate 1 gm 07/22/25 11:30 07/30/25 17:29 Sucralfate 1 Gm Tablet PO 1 gm ACHS GALINA Administration Vitamin D 125 mcg 07/22/25 09:00 07/30/25 09:16 Cholecalciferol (Vitamin D3) 125 Mcg (5,000 Units) Tablet PO 125 mcg DAILY GALINA Administration Radiology Results: ITS Impressions Chest/Abdomen/Pelvis CT 07/21/25 17:48 IMPRESSION: 1. Probable CHF. 2. Cirrhotic disease of the liver with small amount of probable ascites. 3. Probable cystitis. Chest X-Ray 07/27/25 08:21 IMPRESSION: 1. Left lower lobe atelectasis and/or pleural effusion. 2. Mild interstitial pulmonary edema. Labs Labs: Laboratory Tests 07/30/25 05:38 07/30/25 05:38 Calcium 8.1 L Magnesium 2.2 Total Bilirubin 4.6 H AST 61 H ALT 42 H Alkaline Phosphatase 420 H Total Protein 7.3 Albumin 3.5
[2025-07-30] MEDS: INSULIN ASPART (*BKC) 100 UNITS/ML SUB-Q ×2 (12:26→17:30)
[2025-07-30 14:00] VITALS: BP 110/78; PULSE 101; RESP 22; TEMP 35.9; O2SAT 99
[2025-07-30] MEDS: NORTRIPTYLINE HCL 10 MG CAPSULE PO (21:00)
[2025-07-30] MEDS: INSULIN GLARGINE (*BKC) 100 UNITS/ML 10 UNITS SUB-Q (21:07)
[2025-07-30 21:09] VITALS: BP 107/75; PULSE 80; RESP 18; TEMP 36.4; O2SAT 99
[2025-07-31 04:27] VITALS: BP 108/81; PULSE 85; RESP 20; TEMP 36.4; O2SAT 96
[2025-07-31] MEDS: CEPHALEXIN 500 MG CAPSULE 1000 MG PO ×2 (04:28→16:12)
[2025-07-31] MEDS: LEVOTHYROXINE SODIUM 75 MCG TABLET PO (06:34)
[2025-07-31] MEDS: SUCRALFATE 1 GM TABLET PO ×4 (06:34→20:54)
[2025-07-31 07:01] LABS: Hematocrit 39.9 % (37.0-47.0); Hemoglobin 12.6 g/dL (12.0-15.0); Mean Corpuscular HGB Conc 31.6 g/dl (32-36); Mean Corpuscular Hemoglobin 34.1 pg (26-34); Mean Corpuscular Volume 107.8 fl (80-100); Platelet Count Result 214 k/mm3 (150-375); Red Blood Count 3.70 M/mm3 (4.2-5.4); White Blood Count 5.1 K/mm3 (4.5-10.0)
[2025-07-31 07:59] LABS: Thyroid Stimulating Hormone Reflex 11.400 uIU/mL (0.465-4.68)
[2025-07-31 08:15] LABS: Alanine Aminotransferase 38 U/L (6-35); Albumin Level 3.4 g/dL (3.5-5.1); Alkaline Phosphatase 420 U/L (38-126); Anion Gap 9 mmol/L (4-12); Aspartate Amino Transferase 52 U/L (14-36); Bilirubin,Total 3.8 mg/dL (0.2-1.3); Blood Urea Nitrogen 17 mg/dL (7-17); Calcium 8.5 mg/dL (8.4-10.2); Carbon Dioxide 23 mmol/L (22-30); Chloride 92 mmol/L (98-107); Estimated CRCL calculation 77 ml/min; Estimated Glomerular Filt Rate > 60; Glucose 92 mg/dL (65-110); Potassium 4.9 mmol/L (3.4-5.0); Sodium 124 mmol/L (137-145); Total Protein 7.1 g/dL (6.3-8.2)
[2025-07-31] MEDS: ESCITALOPRAM OXALATE 10 MG TABLET PO (08:17)
[2025-07-31] MEDS: APIXABAN 5 MG TABLET PO ×2 (08:17→20:54)
[2025-07-31] MEDS: MAGNESIUM OXIDE 400 MG TABLET PO (08:17)
[2025-07-31] MEDS: SODIUM CHLORIDE 500 MG TABLET 1500 MG PO ×3 (08:17→16:12)
[2025-07-31 08:18] VITALS: PULSE 85
[2025-07-31] MEDS: DOCUSATE SODIUM 100 MG CAPSULE PO ×2 (08:18→16:12)
[2025-07-31] MEDS: CYANOCOBALAMIN 500 MCG TABLET PO (08:18)
[2025-07-31] MEDS: PANTOPRAZOLE 40 MG TABLET PO (08:18)
[2025-07-31] MEDS: FUROSEMIDE 10 MG TABLET PO ×3 (08:18→16:12)
[2025-07-31] MEDS: FERROUS SULFATE 325 MG TABLET PO (08:18)
[2025-07-31] MEDS: EMPAGLIFLOZIN 10 MG TABLET PO (08:18)
[2025-07-31] MEDS: CHOLECALCIFEROL (VITAMIN D3) 125 MCG (5,000 UNITS) TABLET PO (08:18)
[2025-07-31] MEDS: METOPROLOL SUCCINATE EXT REL 25 MG TABCR PO (08:18)
[2025-07-31] MEDS: FAMOTIDINE 20 MG/2 ML VIAL IV PUSH ×2 (08:26→20:55)
[2025-07-31 08:46] VITALS: O2SAT 94
[2025-07-31 09:49] LABS: Free T4 Free Thyroxine Reflex 1.83 ng/dL (0.78-2.19)
[2025-07-31 10:58] LABS: Total Triiodothyronine (T3) 0.75 NG/ML (0.82-1.58)
--- NOTE | 2025-07-31 12:32 | P.PNIM_ITS ---
Progress Note: A&P Assessment and Plan (1) CHF exacerbation: Qualifiers: Heart failure type: combined systolic and diastolic Qualified Code(s): I50.43 - Acute on chronic combined systolic (congestive) and diastolic (congestive) heart failure Code(s): I50.9 - Heart failure, unspecified Status: Acute Assessment and Plan: Treated with IV Bumex in the ED, with significant improvement in clinical status. Marvelithorace metoprolol, bumex on hold for Hyponatremia cardiology following 07/30: Patient currently on Bumex 1 mg p.o. q.d., furosemide 10 mg p.o. t.i.d., empagliflozin 10 mg p.o. q.d., metoprolol succinate 25 mg p.o. q.d. 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 Unclear if acute or chronic however patient has baseline intellectual disability which may affect her ability to ascertain neurological change. Na improving 123, from 118 Continue Salt tablets and Lasix per Nephrology Nephrology following 07/30: Patient currently on sodium chloride tab 1.5 g p.o. t.i.d., Bumex 1 mg p.o. q.d., furosemide 10 mg p.o. t.i.d.. Sodium 122 07/31:Patient currently on sodium chloride tab 1.5 g p.o. t.i.d. and one time dose of 1gm PO tonight, Bumex 1 mg p.o. q.d., furosemide 10 mg p.o. t.i.d.. Sodium 124 (7) Type 2 diabetes mellitus with hyperglycemia: Qualifiers: Diabetes mellitus fpc insulin use: with fpc use Qualified Code(s): E11.65 - Type 2 diabetes mellitus with hyperglycemia; Z79.4 - alf (current) use of insulin Code(s): E11.65 - Type 2 diabetes mellitus with hyperglycemia Status: Chronic Assessment and Plan: Spoke with patient's sisters who did mention patient gets more irritable when her blood sugar is below 130. Will maintain random blood sugar above 130 given this information Insulin sliding scale at this time (8) Atrial fibrillation: Qualifiers: Atrial fibrillation type: permanent Qualified Code(s): I48.21 - Permanent atrial fibrillation Code(s): I48.91 - Unspecified atrial fibrillation Status: Chronic Assessment and Plan: History of atrial fibrillation on anticoagulation and metoprolol Continue Metoprolol and Eliquis (9) Acute kidney injury: Code(s): N17.9 - Acute kidney failure, unspecified Status: Acute Assessment and Plan: Creatinine mildly elevated to 1.18from 0.99 yesterday, prior baseline was 0.71 in July 04. Could be secondary to hypotension or CHF exacerbation proper, or use of IV Bumex Will trend renal function at this time Currently on Bumex 1 mg p.o. q.d. Currently on Lasix a 10 mg p.o. t.i.d. Cr 1.93 today (10) Anxiety: Code(s): F41.9 - Anxiety disorder, unspecified Status: Acute Assessment and Plan: The patient's sister's report that she becomes very irritable when she is not on her buspirone which is a home medication. Buspirone has been started b.i.d. Plan Hyperkalemia K 5.0 S/p [facility] Nephrology following Hypoglycemia BG 54 s/p Dextrose Hold insulin, continue close blood glucose monitoring DVT prophylaxis on Eliquis Awaiting improvement in Sodium for discharge Subjective Date/time seen: 07/31/25 12:32 Interval history: No acute events overnight. Discussed with Nephrology. Will repeat TSH tomorrow AM and will adjust dose if necessary Review of Systems Review of Systems: Unobtainable due to patient's intellectual disability Exam Narrative: Weight 104 kg BMI 34.9 Objective Data Vital Signs Vital Signs: Vital Signs - 24 hr 07/30/25 14:00 07/30/25 20:00 07/30/25 21:09 Temperature 96.7 F L 97.6 F Pulse Rate 101 H 80 Respiratory Rate 22 H 18 Blood Pressure 110/78 107/75 Pulse Oximetry 99 99 Oxygen Delivery Room Air 07/31/25 04:27 07/31/25 08:00 07/31/25 08:18 Temperature 97.5 F L Pulse Rate 85 85 Respiratory Rate 20 Blood Pressure 108/81 Pulse Oximetry 96 Oxygen Delivery Room Air 07/31/25 08:46 Temperature Pulse Rate Respiratory Rate Blood Pressure Pulse Oximetry 94 Oxygen Delivery Room Air Intake/Output Intake/Output: Intake & Output 07/28/25 07/29/25 07/30/25 07/31/25 23:59 23:59 23:59 23:59 Intake Total 1380 878 980 600 Output Total 100 Balance 1280 878 980 600 Meds/Results Medications: Active Medications Generic Name Dose Route Start Last Admin Trade Name Freq PRN Reason Stop Dose Admin Acetaminophen 650 mg 07/22/25 00:30 07/26/25 08:10 Acetaminophen 325 Mg Tablet PO 650 mg Q6H PRN Administration Mild Pain (1-3) or Fever Albuterol 2 puff 07/22/25 03:53 Albuterol Sulfate (*Sp) Aerosol 1 Puff INHALATION Q6H PRN Shortness Of Breath Or Wheezing Apixaban 5 mg 07/22/25 09:00 07/31/25 08:17 Apixaban 5 Mg Tablet PO 5 mg Q12HR GALINA Administration Bumetanide 1 mg 07/25/25 09:00 07/25/25 08:47 Bumetanide 1 Mg Tablet PO 1 mg On Hold: 07/25/25 11:52 DAILY GALINA Administration Buspirone HCl 10 mg 07/22/25 09:00 07/31/25 08:18 Buspirone Hcl 10 Mg Tablet PO 10 mg Q12HR GALINA Administration Cephalexin HCl 1,000 mg 07/22/25 04:25 07/31/25 04:28 Cephalexin 500 Mg Capsule PO 1,000 mg Q12H GALINA Administration Cyanocobalamin 500 mcg 07/22/25 09:00 07/31/25 08:18 Cyanocobalamin 500 Mcg Tablet PO 500 mcg DAILY GALINA Administration Dextrose 12.5 gm 07/21/25 22:56 07/29/25 01:01 Dextrose 50% 25 Gm/50 Ml Syringe IV PUSH 12.5 gm PRN PRN Administration Hypoglycemia Protocol Docusate Sodium 100 mg 07/22/25 09:00 07/31/25 08:18 Docusate Sodium 100 Mg Capsule PO 100 mg BID GALINA Administration Empagliflozin 10 mg 07/22/25 09:00 07/31/25 08:18 Empagliflozin 10 Mg Tablet PO 10 mg DAILY GALINA Administration Escitalopram Oxalate 10 mg 07/22/25 09:00 07/31/25 08:17 Escitalopram Oxalate 10 Mg Tablet PO 10 mg DAILY GALINA Administration Famotidine 20 mg 07/22/25 09:00 07/31/25 08:26 Famotidine 20 Mg/2 Ml Vial IV PUSH 20 mg Q12HR GALINA Administration Ferrous Sulfate 325 mg 07/22/25 09:00 07/31/25 08:18 Ferrous Sulfate 325 Mg Tablet PO 325 mg DAILY GALINA Administration Fluticasone Propionate 1 spray 07/22/25 03:53 Fluticasone Propionate 0.05% Na Spr 16 Gm Btl (*Bkc) NASAL DAILY PRN allergy symptoms/Rhinitis. Furosemide 10 mg 07/30/25 13:00 07/31/25 12:20 Furosemide 10 Mg Tablet PO 10 mg TID GALINA Administration Glucagon 1 mg 07/21/25 22:56 Glucagon For Inj 1 Mg Vial IM PRN PRN Hypoglycemia Protocol Glucose 15 gm 07/21/25 22:56 Glucose Oral Gel 15 Gm Of Glucse In 37.5 Gm Tube PO PRN PRN Hypoglycemia Protocol Hydroxyzine HCl 25 mg 07/22/25 03:53 07/29/25 20:35 Hydroxyzine Hcl 25 Mg Tablet PO 25 mg Q4H PRN Administration itching or anxiety. Dextrose 1,000 mls @ 100 mls/hr 07/21/25 22:56 07/29/25 09:49 Dextrose 5% 1,000 Ml IVPB Infused PRN PRN Infusion Hypoglycemia Protocol Insulin Aspart 3 - 6 units 07/28/25 12:30 07/31/25 12:20 Insulin Aspart (*Bkc) 100 Units/Ml SUB-Q Not Given TIDWM [facility] Protocol Insulin Glargine 10 units 07/22/25 21:00 07/30/25 21:07 Insulin Glargine (*Bkc) 100 Units/Ml SUB-Q 10 units QHS GALINA Administration Levothyroxine Sodium 75 mcg 07/22/25 06:30 07/31/25 06:34 Levothyroxine Sodium 75 Mcg Tablet PO 75 mcg DAILY@0630 GALINA Administration Lidocaine 1 patch 07/22/25 04:21 Lidocaine 5% Patch TRANSDERM DAILY PRN back pain. Magnesium Oxide 400 mg 07/22/25 09:00 07/31/25 08:17 Magnesium Oxide 400 Mg Tablet PO 400 mg DAILY GALINA Administration Metoprolol Succinate 25 mg 07/22/25 09:00 07/31/25 08:18 Metoprolol Succinate Ext Rel 25 Mg Tabcr PO 25 mg DAILY GALINA Administration Nortriptyline HCl 10 mg 07/22/25 21:00 07/30/25 21:00 Nortriptyline Hcl 10 Mg Capsule PO 10 mg HS GALINA Administration Pantoprazole Sodium 40 mg 07/22/25 09:00 07/31/25 08:18 Pantoprazole 40 Mg Tablet PO 40 mg QAM GALINA Administration Polyethylene Glycol 17 gm 07/22/25 03:53 Polyethylene Glycol 3350 17 Gm Powd.Pack PO DAILY PRN Constipation Sodium Chloride 1,500 mg 07/31/25 09:00 07/31/25 12:20 Sodium Chloride 500 Mg Tablet PO 1,500 mg TID GALINA Administration Sodium Chloride 1 gm 07/31/25 21:00 Sodium Chloride 1 Gm Tablet PO 07/31/25 21:01 ONCE ONE Sucralfate 1 gm 07/22/25 11:30 07/31/25 11:11 Sucralfate 1 Gm Tablet PO 1 gm ACHS GALINA Administration Vitamin D 125 mcg 07/22/25 09:00 07/31/25 08:18 Cholecalciferol (Vitamin D3) 125 Mcg (5,000 Units) Tablet PO 125 mcg DAILY GALINA Administration Radiology Results: ITS Impressions Chest/Abdomen/Pelvis CT 07/21/25 17:48 IMPRESSION: 1. Probable CHF. 2. Cirrhotic disease of the liver with small amount of probable ascites. 3. Probable cystitis. Chest X-Ray 07/27/25 08:21 IMPRESSION: 1. Left lower lobe atelectasis and/or pleural effusion. 2. Mild interstitial pulmonary edema. Labs Labs: Laboratory Results - last 24 hr 07/30/25 07/30/25 07/31/25 16:08 20:55 01:11 WBC RBC Hgb Hct MCV MCH MCHC RDW Plt Count MPV Sodium Potassium Chloride Carbon Dioxide Anion Gap BUN Creatinine Estim Creat Clear Calc Estimated GFR Glucose POC Capillary Glucose 231 H 190 H 190 H Calcium Total Bilirubin AST ALT Alkaline Phosphatase Total Protein Albumin TSH (Reflex) Free T4 Total T3 07/31/25 07/31/25 07/31/25 04:25 05:51 07:19 WBC 5.1 RBC 3.70 L Hgb 12.6 Hct 39.9 MCV 107.8 H MCH 34.1 H MCHC 31.6 L RDW 17.4 H Plt Count 214 MPV 9.4 Sodium 124 L Potassium 4.9 Chloride 92 L Carbon Dioxide 23 Anion Gap 9 BUN 17 Creatinine 0.86 Estim Creat Clear Calc 77 Estimated GFR > 60 Glucose 92 POC Capillary Glucose 111 H 140 H Calcium 8.5 Total Bilirubin 3.8 H AST 52 H ALT 38 H Alkaline Phosphatase 420 H Total Protein 7.1 Albumin 3.4 L TSH (Reflex) 11.400 H Free T4 1.83 Total T3 0.75 L 07/31/25 11:19 WBC RBC Hgb Hct MCV MCH MCHC RDW Plt Count MPV Sodium Potassium Chloride Carbon Dioxide Anion Gap BUN Creatinine Estim Creat Clear Calc Estimated GFR Glucose POC Capillary Glucose 137 H Calcium Total Bilirubin AST ALT Alkaline Phosphatase Total Protein Albumin TSH (Reflex) Free T4 Total T3 Quality VTE Prophylaxis VTE prophylaxis: pharmacologic ordered (Continue home Eliquis.) Hospitalist MIPS Advance Care Plan I have confirmed that the patient's Advanced Care Plan is present, code status is documented, or surrogate decision maker is listed in patient medical record.: Yes Medication Reconciliation I have utilized all available resources to obtain, update and review the patients current medications (includes all prescriptions, OTC, herbals, cannabis, and nutritional supplements).: Yes
--- NOTE | 2025-07-31 12:52 | P.PNNP_ITS ---
Progress Note: A&P Assessment and Plan (1) Hyponatremia: Code(s): E87.1 - Hypo-osmolality and hyponatremia Status: Acute Assessment and Plan: * slow improvement * acute on chronic * baseline sodium seems to run 127 - 136mg/dL in the last year * however, has been in the normal range in the past as well * risk factors for low sodium: * prerenal factors * known CHF/cardiomyopathy * medications: - lexapro (SSRI) - nortriptyline - buspirone - diuretic therapy * thyroid disease * excessive fluid intake * liver cirrhosis * other(?) * evaluation noted to date: * TSH elevated (but T4 and T3 noted) * cortisol on lower end - consider stim test * urine sodium > 40 * urine osmo> serum osmo * SPEP negative; UPEP with M-spike --> will check serum/urine immunofixation * on salt tabs * added low dose lasix with salt tabs given CXR findings * consider fluid restriction (but does not appear to be drinking that much) * s/p 3% saline on 07/28 -- consider repeat?? * follow trend of repeat sodium levels (2) Acute kidney injury: Code(s): N17.9 - Acute kidney failure, unspecified Status: Acute Assessment and Plan: * resolved * noted by trend of labs since 07/22/25 * however, baseline creatinine seems to run around 0.7 - 1.2mg/dl in the last year * creatinine has been relatively stable * due to previous diuretic use(?) versus contrast exposure (CT on 07/21) * however, underlying cardiomyopathy and GMDT may be playing a role * follow trend of repeat labs and UOP (3) Hyperkalemia: Code(s): E87.5 - Hyperkalemia Status: Acute Assessment and Plan: * noted by labs on 07/26 * s/p medical management with lokelma * due to previous spironolactone use versus fluctuating kidney function(?) * follow trend of K+ (4) CHF exacerbation: Qualifiers: Heart failure type: combined systolic and diastolic Qualified Code(s): I50.43 - Acute on chronic combined systolic (congestive) and diastolic (congestive) heart failure Code(s): I50.9 - Heart failure, unspecified Status: Acute Assessment and Plan: * mild exacerbation noted on admission * last Echo (02/22/25) noted: * left ventricular systolic function is mildly reduced, estimated at 40 - 45% * right ventricular systolic function is normal * mild to moderate mitral valve regurgitation * severe tricuspid valve regurgitation * diuretic therapy was on hold due to #1 * started on low dose lasix * Cardiology recommendations noted (5) Atrial fibrillation: Qualifiers: Atrial fibrillation type: permanent Qualified Code(s): I48.21 - Permanent atrial fibrillation Code(s): I48.91 - Unspecified atrial fibrillation Status: Chronic Assessment and Plan: * rate control strategy * on metoprolol * on Eliquis (6) Type 2 diabetes mellitus with hyperglycemia: Qualifiers: Diabetes mellitus long line teamster insulin use: with jail use Qualified Code(s): E11.65 - Type 2 diabetes mellitus with hyperglycemia; Z79.4 - MCFP (current) use of insulin Code(s): E11.65 - Type 2 diabetes mellitus with hyperglycemia Status: Chronic Assessment and Plan: * follow accu-cheks * glycemic control per hospitalist Will continue to follow. L Subjective Date/time seen: 07/31/25 12:45 Interval history: Follow-up for acute on chronic hyponatremia. Sodium with mild improvement in the last 24 hours with current therapy/interventions (salt tabs and lasix tid); no other acute issue/events overnight or earlier this morning; no apparent distress noted. Exam 2 Narrative: General: WD/WN female in NAD Heart: normal S1 and S2; no rub Lungs: clear anteriorly. decreased at bases Abdomen: soft, nontender, nondistended, positive bowel sounds Extremities: no cyanosis or clubbing; no edema Skin: warm and dry Objective Data Vital Signs Vital Signs: Vital Signs Temp Pulse Resp BP Pulse Ox O2 Del Method 07/31/25 12:00 97.9 F 87 22 H 108/81 96 07/31/25 08:46 94 Room Air 07/31/25 08:18 85 07/31/25 08:00 Room Air 07/31/25 04:27 97.5 F L 85 20 108/81 96 07/30/25 21:09 97.6 F 80 18 107/75 99 07/30/25 20:00 Room Air Intake/Output Intake/Output: Intake & Output 07/28/25 07/29/25 07/30/25 07/31/25 23:59 23:59 23:59 23:59 Intake Total 1380 878 980 840 Output Total 100 Balance 1280 878 980 840 Meds/Results Medications: Active Medications Generic Name Dose Route Start Last Admin Trade Name Freq PRN Reason Stop Dose Admin Acetaminophen 650 mg 07/22/25 00:30 07/26/25 08:10 Acetaminophen 325 Mg Tablet PO 650 mg Q6H PRN Administration Mild Pain (1-3) or Fever Albuterol 2 puff 07/22/25 03:53 Albuterol Sulfate (*Sp) Aerosol 1 Puff INHALATION Q6H PRN Shortness Of Breath Or Wheezing Apixaban 5 mg 07/22/25 09:00 07/31/25 08:17 Apixaban 5 Mg Tablet PO 5 mg Q12HR GALINA Administration Bumetanide 1 mg 07/25/25 09:00 07/25/25 08:47 Bumetanide 1 Mg Tablet PO 1 mg On Hold: 07/25/25 11:52 DAILY GALINA Administration Buspirone HCl 10 mg 07/22/25 09:00 07/31/25 08:18 Buspirone Hcl 10 Mg Tablet PO 10 mg Q12HR GALINA Administration Cephalexin HCl 1,000 mg 07/22/25 04:25 07/31/25 16:12 Cephalexin 500 Mg Capsule PO 1,000 mg Q12H GALINA Administration Cyanocobalamin 500 mcg 07/22/25 09:00 07/31/25 08:18 Cyanocobalamin 500 Mcg Tablet PO 500 mcg DAILY GALINA Administration Dextrose 12.5 gm 07/21/25 22:56 07/29/25 01:01 Dextrose 50% 25 Gm/50 Ml Syringe IV PUSH 12.5 gm PRN PRN Administration Hypoglycemia Protocol Docusate Sodium 100 mg 07/22/25 09:00 07/31/25 16:12 Docusate Sodium 100 Mg Capsule PO 100 mg BID GALINA Administration Empagliflozin 10 mg 07/22/25 09:00 07/31/25 08:18 Empagliflozin 10 Mg Tablet PO 10 mg DAILY GALINA Administration Escitalopram Oxalate 10 mg 07/22/25 09:00 07/31/25 08:17 Escitalopram Oxalate 10 Mg Tablet PO 10 mg DAILY GALINA Administration Famotidine 20 mg 07/22/25 09:00 07/31/25 08:26 Famotidine 20 Mg/2 Ml Vial IV PUSH 20 mg Q12HR GALINA Administration Ferrous Sulfate 325 mg 07/22/25 09:00 07/31/25 08:18 Ferrous Sulfate 325 Mg Tablet PO 325 mg DAILY GALINA Administration Fluticasone Propionate 1 spray 07/22/25 03:53 Fluticasone Propionate 0.05% Na Spr 16 Gm Btl (*Bkc) NASAL DAILY PRN allergy symptoms/Rhinitis. Furosemide 10 mg 07/30/25 13:00 07/31/25 16:12 Furosemide 10 Mg Tablet PO 10 mg TID GALINA Administration Glucagon 1 mg 07/21/25 22:56 Glucagon For Inj 1 Mg Vial IM PRN PRN Hypoglycemia Protocol Glucose 15 gm 07/21/25 22:56 Glucose Oral Gel 15 Gm Of Glucse In 37.5 Gm Tube PO PRN PRN Hypoglycemia Protocol Hydroxyzine HCl 25 mg 07/22/25 03:53 07/29/25 20:35 Hydroxyzine Hcl 25 Mg Tablet PO 25 mg Q4H PRN Administration itching or anxiety. Dextrose 1,000 mls @ 100 mls/hr 07/21/25 22:56 07/29/25 09:49 Dextrose 5% 1,000 Ml IVPB Infused PRN PRN Infusion Hypoglycemia Protocol Insulin Aspart 3 - 6 units 07/28/25 12:30 07/31/25 12:20 Insulin Aspart (*Bkc) 100 Units/Ml SUB-Q Not Given TIDWM [facility] Protocol Insulin Glargine 10 units 07/22/25 21:00 07/30/25 21:07 Insulin Glargine (*Bkc) 100 Units/Ml SUB-Q 10 units QHS GALINA Administration Levothyroxine Sodium 75 mcg 07/22/25 06:30 07/31/25 06:34 Levothyroxine Sodium 75 Mcg Tablet PO 75 mcg DAILY@0630 GALINA Administration Lidocaine 1 patch 07/22/25 04:21 Lidocaine 5% Patch TRANSDERM DAILY PRN back pain. Magnesium Oxide 400 mg 07/22/25 09:00 07/31/25 08:17 Magnesium Oxide 400 Mg Tablet PO 400 mg DAILY GALINA Administration Metoprolol Succinate 25 mg 07/22/25 09:00 07/31/25 08:18 Metoprolol Succinate Ext Rel 25 Mg Tabcr PO 25 mg DAILY GALINA Administration Nortriptyline HCl 10 mg 07/22/25 21:00 07/30/25 21:00 Nortriptyline Hcl 10 Mg Capsule PO 10 mg HS GALINA Administration Pantoprazole Sodium 40 mg 07/22/25 09:00 07/31/25 08:18 Pantoprazole 40 Mg Tablet PO 40 mg QAM GALINA Administration Polyethylene Glycol 17 gm 07/22/25 03:53 Polyethylene Glycol 3350 17 Gm Powd.Pack PO DAILY PRN Constipation Sodium Chloride 1,500 mg 07/31/25 09:00 07/31/25 16:12 Sodium Chloride 500 Mg Tablet PO 1,500 mg TID GALINA Administration Sodium Chloride 1 gm 07/31/25 21:00 Sodium Chloride 1 Gm Tablet PO 07/31/25 21:01 ONCE ONE Sucralfate 1 gm 07/22/25 11:30 07/31/25 16:12 Sucralfate 1 Gm Tablet PO 1 gm ACHS GALINA Administration Vitamin D 125 mcg 07/22/25 09:00 07/31/25 08:18 Cholecalciferol (Vitamin D3) 125 Mcg (5,000 Units) Tablet PO 125 mcg DAILY GALINA Administration Radiology Results: ITS Impressions Chest/Abdomen/Pelvis CT 07/21/25 17:48 IMPRESSION: 1. Probable CHF. 2. Cirrhotic disease of the liver with small amount of probable ascites. 3. Probable cystitis. Chest X-Ray 07/27/25 08:21 IMPRESSION: 1. Left lower lobe atelectasis and/or pleural effusion. 2. Mild interstitial pulmonary edema. Labs Labs: Laboratory Tests 07/31/25 05:51 07/31/25 05:51 Calcium 8.5 Total Bilirubin 3.8 H AST 52 H ALT 38 H Alkaline Phosphatase 420 H Total Protein 7.1 Albumin 3.4 L TSH (Reflex) 11.400 H Free T4 1.83 Total T3 0.75 L
[2025-07-31 14:00] VITALS: BP 108/81; PULSE 87; RESP 22; TEMP 36.6; O2SAT 96
[2025-07-31 14:08] LABS: Albumin, U 59.8 % (.); Alpha-1-Globulin, U 1.0 % (.); Alpha-2-Globulin, U 8.5 % (.); Beta Globulin, U 13.9 % (.); Gamma Globulin, U 16.8 % (.)
[2025-07-31 20:00] VITALS: PULSE 86; RESP 18; O2SAT 100
[2025-07-31] MEDS: NORTRIPTYLINE HCL 10 MG CAPSULE PO (20:54)
[2025-07-31] MEDS: SODIUM CHLORIDE 1 GM TABLET PO (20:57)
[2025-07-31 21:40] VITALS: BP 100/50; PULSE 86; RESP 18; TEMP 36.8; O2SAT 100
[2025-07-31] MEDS: INSULIN GLARGINE (*BKC) 100 UNITS/ML 10 UNITS SUB-Q (22:53)
[2025-08-01] MEDS: SUCRALFATE 1 GM TABLET PO ×4 (05:40→21:08)
[2025-08-01] MEDS: LEVOTHYROXINE SODIUM 75 MCG TABLET PO (05:40)
[2025-08-01 05:54] VITALS: BP 101/57; PULSE 107; RESP 20; TEMP 36.6; O2SAT 100
[2025-08-01 06:25] LABS: Hematocrit 40.0 % (37.0-47.0); Hemoglobin 13.1 g/dL (12.0-15.0); Mean Corpuscular HGB Conc 32.8 g/dl (32-36); Mean Corpuscular Hemoglobin 33.8 pg (26-34); Mean Corpuscular Volume 103.1 fl (80-100); Platelet Count Result 226 k/mm3 (150-375); Red Blood Count 3.88 M/mm3 (4.2-5.4); White Blood Count 4.5 K/mm3 (4.5-10.0)
[2025-08-01 06:48] LABS: Alanine Aminotransferase 37 U/L (6-35); Albumin Level 3.7 g/dL (3.5-5.1); Alkaline Phosphatase 383 U/L (38-126); Anion Gap 8 mmol/L (4-12); Aspartate Amino Transferase 54 U/L (14-36); Bilirubin,Total 5.3 mg/dL (0.2-1.3); Blood Urea Nitrogen 19 mg/dL (7-17); Calcium 8.7 mg/dL (8.4-10.2); Carbon Dioxide 24 mmol/L (22-30); Chloride 90 mmol/L (98-107); Estimated CRCL calculation 76 ml/min; Estimated Glomerular Filt Rate > 60; Glucose 97 mg/dL (65-110); Potassium 5.1 mmol/L (3.4-5.0); Sodium 122 mmol/L (137-145); Total Protein 7.4 g/dL (6.3-8.2)
[2025-08-01 07:17] LABS: Thyroid Stimulating Hormone Reflex 10.200 uIU/mL (0.465-4.68)
[2025-08-01] MEDS: APIXABAN 5 MG TABLET PO ×2 (08:39→21:08)
[2025-08-01 08:40] VITALS: PULSE 107
[2025-08-01] MEDS: FUROSEMIDE 10 MG TABLET PO (08:40)
[2025-08-01] MEDS: FERROUS SULFATE 325 MG TABLET PO (08:40)
[2025-08-01] MEDS: MAGNESIUM OXIDE 400 MG TABLET PO (08:40)
[2025-08-01] MEDS: CHOLECALCIFEROL (VITAMIN D3) 125 MCG (5,000 UNITS) TABLET PO (08:40)
[2025-08-01] MEDS: DOCUSATE SODIUM 100 MG CAPSULE PO ×2 (08:40→16:33)
[2025-08-01] MEDS: ESCITALOPRAM OXALATE 10 MG TABLET PO (08:40)
[2025-08-01] MEDS: CYANOCOBALAMIN 500 MCG TABLET PO (08:40)
[2025-08-01] MEDS: METOPROLOL SUCCINATE EXT REL 25 MG TABCR PO (08:40)
[2025-08-01] MEDS: EMPAGLIFLOZIN 10 MG TABLET PO (08:40)
[2025-08-01] MEDS: PANTOPRAZOLE 40 MG TABLET PO (08:40)
[2025-08-01] MEDS: SODIUM CHLORIDE 500 MG TABLET 1500 MG PO (08:40)
[2025-08-01] MEDS: FAMOTIDINE 20 MG/2 ML VIAL IV PUSH ×2 (08:41→21:08)
--- NOTE | 2025-08-01 10:16 | PC.NURSE ---
Telephone message left for Peg Rice, sister. Call back number left.
[2025-08-01] MEDS: FUROSEMIDE 20 MG TABLET PO ×2 (12:19→16:33)
[2025-08-01] MEDS: SODIUM CHLORIDE 1 GM TABLET 2 GM PO ×2 (12:19→16:33)
[2025-08-01 13:15] LABS: Free T4 Free Thyroxine Reflex 2.16 ng/dL (0.78-2.19)
--- NOTE | 2025-08-01 13:39 | P.PNNP_ITS ---
Progress Note: A&P Assessment and Plan (1) Hyponatremia: Code(s): E87.1 - Hypo-osmolality and hyponatremia Status: Acute Assessment and Plan: * slow improvement * acute on chronic * baseline sodium seems to run 127 - 136mg/dL in the last year * however, has been in the normal range in the past as well * risk factors for low sodium: * prerenal factors * known CHF/cardiomyopathy * medications: - lexapro (SSRI) - nortriptyline - buspirone - diuretic therapy * thyroid disease * excessive fluid intake * liver cirrhosis * other(?) * evaluation noted to date: * TSH elevated (but T4 and T3 noted) * cortisol on lower end - consider stim test * urine sodium > 40 * urine osmo> serum osmo * SPEP negative; UPEP with M-spike --> will check serum/urine immunofixation * on salt tabs * added low dose lasix with salt tabs given CXR findings * consider fluid restriction (but does not appear to be drinking that much) * s/p 3% saline on 07/28 -- consider repeat?? * follow trend of repeat sodium levels (2) Acute kidney injury: Code(s): N17.9 - Acute kidney failure, unspecified Status: Acute Assessment and Plan: * resolved * noted by trend of labs since 07/22/25 * however, baseline creatinine seems to run around 0.7 - 1.2mg/dl in the last year * creatinine has been relatively stable * due to previous diuretic use(?) versus contrast exposure (CT on 07/21) * however, underlying cardiomyopathy and GMDT may be playing a role * follow trend of repeat labs and UOP (3) Hyperkalemia: Code(s): E87.5 - Hyperkalemia Status: Acute Assessment and Plan: * noted by labs on 07/26 * s/p medical management with lokelma * due to previous spironolactone use versus fluctuating kidney function(?) * follow trend of K+ (4) CHF exacerbation: Qualifiers: Heart failure type: combined systolic and diastolic Qualified Code(s): I50.43 - Acute on chronic combined systolic (congestive) and diastolic (congestive) heart failure Code(s): I50.9 - Heart failure, unspecified Status: Acute Assessment and Plan: * mild exacerbation noted on admission * last Echo (02/22/25) noted: * left ventricular systolic function is mildly reduced, estimated at 40 - 45% * right ventricular systolic function is normal * mild to moderate mitral valve regurgitation * severe tricuspid valve regurgitation * diuretic therapy was on hold due to #1 * started on low dose lasix * Cardiology recommendations noted (5) Atrial fibrillation: Qualifiers: Atrial fibrillation type: permanent Qualified Code(s): I48.21 - Permanent atrial fibrillation Code(s): I48.91 - Unspecified atrial fibrillation Status: Chronic Assessment and Plan: * rate control strategy * on metoprolol * on Eliquis (6) Type 2 diabetes mellitus with hyperglycemia: Qualifiers: Diabetes mellitus director long term care insulin use: with shelter use Qualified Code(s): E11.65 - Type 2 diabetes mellitus with hyperglycemia; Z79.4 - alf (current) use of insulin Code(s): E11.65 - Type 2 diabetes mellitus with hyperglycemia Status: Chronic Assessment and Plan: * follow accu-cheks * glycemic control per hospitalist Will continue to follow. Subjective Date/time seen: 08/01/25 13:39 Interval history: Follow-up for acute on chronic hyponatremia. Sodium remains the same despite all interventions to date -- however, she otherwise appears asymptomatic with regard to her hyponatremia; no other acute complaints voiced; no issues/events overnight or earlier this morning. Exam Narrative: General: WD/WN female in NAD Heart: normal S1 and S2; no rub Lungs: clear anteriorly. decreased at bases Abdomen: soft, nontender, nondistended, positive bowel sounds Extremities: no cyanosis or clubbing; no edema Skin: warm and intact Objective Data Vital Signs Vital Signs: Vital Signs Temp Pulse Resp BP Pulse Ox O2 Del Method 08/01/25 13:00 97.2 F L 93 20 103/65 97 08/01/25 08:40 107 H 08/01/25 08:00 Room Air 08/01/25 05:54 97.8 F 107 H 20 101/57 L 100 07/31/25 21:40 98.3 F 86 18 100/50 L 100 07/31/25 20:00 86 18 100 Room Air Intake/Output Intake/Output: Intake & Output 07/29/25 07/30/25 07/31/25 08/01/25 23:59 23:59 23:59 23:59 Intake Total 662 004 4349 870 Balance 171 396 6911 870 Meds/Results Medications: Active Medications Generic Name Dose Route Start Last Admin Trade Name Freq PRN Reason Stop Dose Admin Acetaminophen 650 mg 07/22/25 00:30 07/26/25 08:10 Acetaminophen 325 Mg Tablet PO 650 mg Q6H PRN Administration Mild Pain (1-3) or Fever Albuterol 2 puff 07/22/25 03:53 Albuterol Sulfate (*Sp) Aerosol 1 Puff INHALATION Q6H PRN Shortness Of Breath Or Wheezing Apixaban 5 mg 07/22/25 09:00 08/01/25 08:39 Apixaban 5 Mg Tablet PO 5 mg Q12HR GALINA Administration Bumetanide 1 mg 07/25/25 09:00 07/25/25 08:47 Bumetanide 1 Mg Tablet PO 1 mg On Hold: 07/25/25 11:52 DAILY GALINA Administration Buspirone HCl 10 mg 07/22/25 09:00 08/01/25 08:40 Buspirone Hcl 10 Mg Tablet PO 10 mg Q12HR GALINA Administration Cyanocobalamin 500 mcg 07/22/25 09:00 08/01/25 08:40 Cyanocobalamin 500 Mcg Tablet PO 500 mcg DAILY GALINA Administration Dextrose 12.5 gm 07/21/25 22:56 07/29/25 01:01 Dextrose 50% 25 Gm/50 Ml Syringe IV PUSH 12.5 gm PRN PRN Administration Hypoglycemia Protocol Docusate Sodium 100 mg 07/22/25 09:00 08/01/25 16:33 Docusate Sodium 100 Mg Capsule PO 100 mg BID GALINA Administration Empagliflozin 10 mg 07/22/25 09:00 08/01/25 08:40 Empagliflozin 10 Mg Tablet PO 10 mg DAILY GALINA Administration Escitalopram Oxalate 10 mg 07/22/25 09:00 08/01/25 08:40 Escitalopram Oxalate 10 Mg Tablet PO 10 mg DAILY GALINA Administration Famotidine 20 mg 07/22/25 09:00 08/01/25 08:41 Famotidine 20 Mg/2 Ml Vial IV PUSH 20 mg Q12HR GALINA Administration Ferrous Sulfate 325 mg 07/22/25 09:00 08/01/25 08:40 Ferrous Sulfate 325 Mg Tablet PO 325 mg DAILY GALINA Administration Fluticasone Propionate 1 spray 07/22/25 03:53 Fluticasone Propionate 0.05% Na Spr 16 Gm Btl (*Bkc) NASAL DAILY PRN allergy symptoms/Rhinitis. Furosemide 20 mg 08/01/25 13:00 08/01/25 16:33 Furosemide 20 Mg Tablet PO 20 mg TID GALINA Administration Glucagon 1 mg 07/21/25 22:56 Glucagon For Inj 1 Mg Vial IM PRN PRN Hypoglycemia Protocol Glucose 15 gm 07/21/25 22:56 Glucose Oral Gel 15 Gm Of Glucse In 37.5 Gm Tube PO PRN PRN Hypoglycemia Protocol Hydroxyzine HCl 25 mg 07/22/25 03:53 07/29/25 20:35 Hydroxyzine Hcl 25 Mg Tablet PO 25 mg Q4H PRN Administration itching or anxiety. Dextrose 1,000 mls @ 100 mls/hr 07/21/25 22:56 07/29/25 09:49 Dextrose 5% 1,000 Ml IVPB Infused PRN PRN Infusion Hypoglycemia Protocol Sodium Chloride 300 mls @ 100 mls/hr 08/01/25 17:26 08/01/25 17:54 Sodium Chloride 3% IV CONT 08/01/25 20:25 100 mls/hr .Q3H ONE Administration Insulin Aspart 3 - 6 units 07/28/25 12:30 08/01/25 17:41 Insulin Aspart (*Bkc) 100 Units/Ml SUB-Q Not Given TIDWM GALINA Protocol Insulin Glargine 10 units 07/22/25 21:00 07/31/25 22:53 Insulin Glargine (*Bkc) 100 Units/Ml SUB-Q 10 units QHS GALINA Administration Levothyroxine Sodium 75 mcg 07/22/25 06:30 08/01/25 05:40 Levothyroxine Sodium 75 Mcg Tablet PO 75 mcg DAILY@0630 GALINA Administration Lidocaine 1 patch 07/22/25 04:21 Lidocaine 5% Patch TRANSDERM DAILY PRN back pain. Magnesium Oxide 400 mg 07/22/25 09:00 08/01/25 08:40 Magnesium Oxide 400 Mg Tablet PO 400 mg DAILY GALINA Administration Metoprolol Succinate 25 mg 07/22/25 09:00 08/01/25 08:40 Metoprolol Succinate Ext Rel 25 Mg Tabcr PO 25 mg DAILY GALINA Administration Nortriptyline HCl 10 mg 07/22/25 21:00 07/31/25 20:54 Nortriptyline Hcl 10 Mg Capsule PO 10 mg HS GALINA Administration Pantoprazole Sodium 40 mg 07/22/25 09:00 08/01/25 08:40 Pantoprazole 40 Mg Tablet PO 40 mg QAM GALINA Administration Polyethylene Glycol 17 gm 07/22/25 03:53 Polyethylene Glycol 3350 17 Gm Powd.Pack PO DAILY PRN Constipation Sodium Chloride 2 gm 08/01/25 13:00 08/01/25 16:33 Sodium Chloride 1 Gm Tablet PO 2 gm TID GALINA Administration Sucralfate 1 gm 07/22/25 11:30 08/01/25 16:32 Sucralfate 1 Gm Tablet PO 1 gm ACHS GALINA Administration Vitamin D 125 mcg 07/22/25 09:00 08/01/25 08:40 Cholecalciferol (Vitamin D3) 125 Mcg (5,000 Units) Tablet PO 125 mcg DAILY GALINA Administration Radiology Results: ITS Impressions Chest/Abdomen/Pelvis CT 07/21/25 17:48 IMPRESSION: 1. Probable CHF. 2. Cirrhotic disease of the liver with small amount of probable ascites. 3. Probable cystitis. Chest X-Ray 07/27/25 08:21 IMPRESSION: 1. Left lower lobe atelectasis and/or pleural effusion. 2. Mild interstitial pulmonary edema. Labs Labs: Laboratory Tests 08/01/25 05:33 WBC 4.5 Hgb 13.1 Hct 40.0 Plt Count 226 Sodium 122 L Potassium 5.1 H Chloride 90 L Carbon Dioxide 24 Anion Gap 8 BUN 19 H Creatinine 0.88 Estim Creat Clear Calc 76 Estimated GFR > 60 Glucose 97 Calcium 8.7 Total Bilirubin 5.3 H AST 54 H ALT 37 H Alkaline Phosphatase 383 H Total Protein 7.4 Albumin 3.7 TSH (Reflex) 10.200 H Free T4 2.16
[2025-08-01 14:00] VITALS: BP 103/65; PULSE 93; RESP 20; TEMP 36.2; O2SAT 97
[2025-08-01 15:29] LABS: Potassium 4.6 mmol/L (3.4-5.0)
[2025-08-01] MEDS: COSYNTROPIN 0.25 MG/ML VIAL IV PUSH (15:31)
[2025-08-01 17:00] LABS: Sodium 122 mmol/L (137-145)
--- NOTE | 2025-08-01 17:21 | P.PNIM_ITS ---
Progress Note: A&P Assessment and Plan (1) CHF exacerbation: Qualifiers: Heart failure type: combined systolic and diastolic Qualified Code(s): I50.43 - Acute on chronic combined systolic (congestive) and diastolic (congestive) heart failure Code(s): I50.9 - Heart failure, unspecified Status: Acute Assessment and Plan: Treated with IV Bumex in the ED, with significant improvement in clinical status. Marvelithorace metoprolol, bumex on hold for Hyponatremia cardiology following 07/30: Patient currently on Bumex 1 mg p.o. q.d., furosemide 10 mg p.o. t.i.d., empagliflozin 10 mg p.o. q.d., metoprolol succinate 25 mg p.o. q.d. 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 Unclear if acute or chronic however patient has baseline intellectual disability which may affect her ability to ascertain neurological change. Na improving 123, from 118 Continue Salt tablets and Lasix per Nephrology Nephrology following 07/30: Patient currently on sodium chloride tab 1.5 g p.o. t.i.d., Bumex 1 mg p.o. q.d., furosemide 10 mg p.o. t.i.d.. Sodium 122 07/31:Patient currently on sodium chloride tab 1.5 g p.o. t.i.d. and one time dose of 1gm PO tonight, Bumex 1 mg p.o. q.d., furosemide 10 mg p.o. t.i.d.. Sodium 124 (7) Type 2 diabetes mellitus with hyperglycemia: Qualifiers: Diabetes mellitus fci insulin use: with fci use Qualified Code(s): E11.65 - Type 2 diabetes mellitus with hyperglycemia; Z79.4 - MCC (current) use of insulin Code(s): E11.65 - Type 2 diabetes mellitus with hyperglycemia Status: Chronic Assessment and Plan: Spoke with patient's sisters who did mention patient gets more irritable when her blood sugar is below 130. Will maintain random blood sugar above 130 given this information Insulin sliding scale at this time (8) Atrial fibrillation: Qualifiers: Atrial fibrillation type: permanent Qualified Code(s): I48.21 - Permanent atrial fibrillation Code(s): I48.91 - Unspecified atrial fibrillation Status: Chronic Assessment and Plan: History of atrial fibrillation on anticoagulation and metoprolol Continue Metoprolol and Eliquis (9) Acute kidney injury: Code(s): N17.9 - Acute kidney failure, unspecified Status: Acute Assessment and Plan: Creatinine mildly elevated to 1.18from 0.99 yesterday, prior baseline was 0.71 in July 04. Could be secondary to hypotension or CHF exacerbation proper, or use of IV Bumex Will trend renal function at this time Currently on Bumex 1 mg p.o. q.d. Currently on Lasix a 10 mg p.o. t.i.d. Cr 1.93 today (10) Anxiety: Code(s): F41.9 - Anxiety disorder, unspecified Status: Acute Assessment and Plan: The patient's sister's report that she becomes very irritable when she is not on her buspirone which is a home medication. Buspirone has been started b.i.d. Plan Hyperkalemia K 5.0 S/p [facility] following Hypoglycemia BG 54 s/p Dextrose Hold insulin, continue close blood glucose monitoring DVT prophylaxis on Eliquis Awaiting improvement in Sodium for discharge Subjective Date/time seen: 08/01/25 17:21 Interval history: Had a long discussion with both of her sisters. Plan to meet them in person tomorrow. Review of Systems Review of Systems: Unobtainable due to patient's intellectual disability Exam Narrative: Weight 104 kg BMI 34.9 Objective Data Vital Signs Vital Signs: Vital Signs - 24 hr 07/31/25 20:00 07/31/25 21:40 08/01/25 05:54 Temperature 98.3 F 97.8 F Pulse Rate 86 86 107 H Respiratory Rate 18 18 20 Blood Pressure 100/50 L 101/57 L Pulse Oximetry 100 100 100 Oxygen Delivery Room Air 08/01/25 08:00 08/01/25 08:40 08/01/25 14:00 Temperature 97.2 F L Pulse Rate 107 H 93 Respiratory Rate 20 Blood Pressure 103/65 Pulse Oximetry 97 Oxygen Delivery Room Air Intake/Output Intake/Output: Intake & Output 07/29/25 07/30/25 07/31/25 08/01/25 23:59 23:59 23:59 23:59 Intake Total 206 233 7274 870 Balance 985 871 5862 870 Meds/Results Medications: Active Medications Generic Name Dose Route Start Last Admin Trade Name Freq PRN Reason Stop Dose Admin Acetaminophen 650 mg 07/22/25 00:30 07/26/25 08:10 Acetaminophen 325 Mg Tablet PO 650 mg Q6H PRN Administration Mild Pain (1-3) or Fever Albuterol 2 puff 07/22/25 03:53 Albuterol Sulfate (*Sp) Aerosol 1 Puff INHALATION Q6H PRN Shortness Of Breath Or Wheezing Apixaban 5 mg 07/22/25 09:00 08/01/25 08:39 Apixaban 5 Mg Tablet PO 5 mg Q12HR GALINA Administration Bumetanide 1 mg 07/25/25 09:00 07/25/25 08:47 Bumetanide 1 Mg Tablet PO 1 mg On Hold: 07/25/25 11:52 DAILY GALINA Administration Buspirone HCl 10 mg 07/22/25 09:00 08/01/25 08:40 Buspirone Hcl 10 Mg Tablet PO 10 mg Q12HR GALINA Administration Cyanocobalamin 500 mcg 07/22/25 09:00 08/01/25 08:40 Cyanocobalamin 500 Mcg Tablet PO 500 mcg DAILY GALINA Administration Dextrose 12.5 gm 07/21/25 22:56 07/29/25 01:01 Dextrose 50% 25 Gm/50 Ml Syringe IV PUSH 12.5 gm PRN PRN Administration Hypoglycemia Protocol Docusate Sodium 100 mg 07/22/25 09:00 08/01/25 16:33 Docusate Sodium 100 Mg Capsule PO 100 mg BID GALINA Administration Empagliflozin 10 mg 07/22/25 09:00 08/01/25 08:40 Empagliflozin 10 Mg Tablet PO 10 mg DAILY GALINA Administration Escitalopram Oxalate 10 mg 07/22/25 09:00 08/01/25 08:40 Escitalopram Oxalate 10 Mg Tablet PO 10 mg DAILY GALINA Administration Famotidine 20 mg 07/22/25 09:00 08/01/25 08:41 Famotidine 20 Mg/2 Ml Vial IV PUSH 20 mg Q12HR GALINA Administration Ferrous Sulfate 325 mg 07/22/25 09:00 08/01/25 08:40 Ferrous Sulfate 325 Mg Tablet PO 325 mg DAILY GALINA Administration Fluticasone Propionate 1 spray 07/22/25 03:53 Fluticasone Propionate 0.05% Na Spr 16 Gm Btl (*Bkc) NASAL DAILY PRN allergy symptoms/Rhinitis. Furosemide 20 mg 08/01/25 13:00 08/01/25 16:33 Furosemide 20 Mg Tablet PO 20 mg TID GALINA Administration Glucagon 1 mg 07/21/25 22:56 Glucagon For Inj 1 Mg Vial IM PRN PRN Hypoglycemia Protocol Glucose 15 gm 07/21/25 22:56 Glucose Oral Gel 15 Gm Of Glucse In 37.5 Gm Tube PO PRN PRN Hypoglycemia Protocol Hydroxyzine HCl 25 mg 07/22/25 03:53 07/29/25 20:35 Hydroxyzine Hcl 25 Mg Tablet PO 25 mg Q4H PRN Administration itching or anxiety. Dextrose 1,000 mls @ 100 mls/hr 07/21/25 22:56 07/29/25 09:49 Dextrose 5% 1,000 Ml IVPB Infused PRN PRN Infusion Hypoglycemia Protocol Insulin Aspart 3 - 6 units 07/28/25 12:30 08/01/25 12:20 Insulin Aspart (*Bkc) 100 Units/Ml SUB-Q Not Given TIDWM GALINA Protocol Insulin Glargine 10 units 07/22/25 21:00 07/31/25 22:53 Insulin Glargine (*Bkc) 100 Units/Ml SUB-Q 10 units QHS GALINA Administration Levothyroxine Sodium 75 mcg 07/22/25 06:30 08/01/25 05:40 Levothyroxine Sodium 75 Mcg Tablet PO 75 mcg DAILY@0630 GALINA Administration Lidocaine 1 patch 07/22/25 04:21 Lidocaine 5% Patch TRANSDERM DAILY PRN back pain. Magnesium Oxide 400 mg 07/22/25 09:00 08/01/25 08:40 Magnesium Oxide 400 Mg Tablet PO 400 mg DAILY GALINA Administration Metoprolol Succinate 25 mg 07/22/25 09:00 08/01/25 08:40 Metoprolol Succinate Ext Rel 25 Mg Tabcr PO 25 mg DAILY GALINA Administration Nortriptyline HCl 10 mg 07/22/25 21:00 07/31/25 20:54 Nortriptyline Hcl 10 Mg Capsule PO 10 mg HS GALINA Administration Pantoprazole Sodium 40 mg 07/22/25 09:00 08/01/25 08:40 Pantoprazole 40 Mg Tablet PO 40 mg QAM GALINA Administration Polyethylene Glycol 17 gm 07/22/25 03:53 Polyethylene Glycol 3350 17 Gm Powd.Pack PO DAILY PRN Constipation Sodium Chloride 2 gm 08/01/25 13:00 08/01/25 16:33 Sodium Chloride 1 Gm Tablet PO 2 gm TID GALINA Administration Sucralfate 1 gm 07/22/25 11:30 08/01/25 16:32 Sucralfate 1 Gm Tablet PO 1 gm ACHS GALINA Administration Vitamin D 125 mcg 07/22/25 09:00 08/01/25 08:40 Cholecalciferol (Vitamin D3) 125 Mcg (5,000 Units) Tablet PO 125 mcg DAILY GALINA Administration Radiology Results: ITS Impressions Chest/Abdomen/Pelvis CT 07/21/25 17:48 IMPRESSION: 1. Probable CHF. 2. Cirrhotic disease of the liver with small amount of probable ascites. 3. Probable cystitis. Chest X-Ray 07/27/25 08:21 IMPRESSION: 1. Left lower lobe atelectasis and/or pleural effusion. 2. Mild interstitial pulmonary edema. Labs Labs: Laboratory Results - last 24 hr 07/31/25 08/01/25 08/01/25 21:13 05:33 07:49 WBC 4.5 RBC 3.88 L Hgb 13.1 Hct 40.0 MCV 103.1 H MCH 33.8 MCHC 32.8 RDW 17.3 H Plt Count 226 MPV 9.4 Sodium 122 L Potassium 5.1 H Chloride 90 L Carbon Dioxide 24 Anion Gap 8 BUN 19 H Creatinine 0.88 Estim Creat Clear Calc 76 Estimated GFR > 60 Glucose 97 POC Capillary Glucose 165 H 95 Calcium 8.7 Total Bilirubin 5.3 H AST 54 H ALT 37 H Alkaline Phosphatase 383 H Total Protein 7.4 Albumin 3.7 TSH (Reflex) 10.200 H Free T4 2.16 Cortisol Baseline Cortisol Resp 30 Min 08/01/25 08/01/25 08/01/25 11:56 15:12 15:13 WBC RBC Hgb Hct MCV MCH MCHC RDW Plt Count MPV Sodium Potassium 4.6 Chloride Carbon Dioxide Anion Gap BUN Creatinine Estim Creat Clear Calc Estimated GFR Glucose POC Capillary Glucose 121 H Calcium Total Bilirubin AST ALT Alkaline Phosphatase Total Protein Albumin TSH (Reflex) Free T4 Cortisol Baseline Cancelled Cortisol Resp 30 Min 08/01/25 08/01/25 15:53 16:47 WBC RBC Hgb Hct MCV MCH MCHC RDW Plt Count MPV Sodium 122 L Potassium Chloride Carbon Dioxide Anion Gap BUN Creatinine Estim Creat Clear Calc Estimated GFR Glucose POC Capillary Glucose Calcium Total Bilirubin AST ALT Alkaline Phosphatase Total Protein Albumin TSH (Reflex) Free T4 Cortisol Baseline Cortisol Resp 30 Min 23.00 Quality VTE Prophylaxis VTE prophylaxis: pharmacologic ordered (Continue home Eliquis.) Hospitalist MIPS Advance Care Plan I have confirmed that the patient's Advanced Care Plan is present, code status is documented, or surrogate decision maker is listed in patient medical record.: Yes Medication Reconciliation I have utilized all available resources to obtain, update and review the patients current medications (includes all prescriptions, OTC, herbals, cannabis, and nutritional supplements).: Yes
[2025-08-01] MEDS: SODIUM CHLORIDE 3% 300 ML 100 ML IV CONT (17:54)
[2025-08-01 18:05] LABS: Cortisol 60 Minute 26.80 ug/dL
[2025-08-01 20:00] VITALS: PULSE 95; RESP 16; O2SAT 97
[2025-08-01] MEDS: NORTRIPTYLINE HCL 10 MG CAPSULE PO (21:08)
[2025-08-01] MEDS: INSULIN GLARGINE (*BKC) 100 UNITS/ML 10 UNITS SUB-Q (21:50)
[2025-08-01 22:00] VITALS: BP 94/60; PULSE 95; RESP 16; TEMP 36.4; O2SAT 97
[2025-08-01 23:40] LABS: Sodium 126 mmol/L (137-145)
[2025-08-02 04:40] VITALS: BP 101/57; PULSE 96; RESP 20; TEMP 36.3; O2SAT 99
[2025-08-02] MEDS: SUCRALFATE 1 GM TABLET PO ×3 (05:52→21:18)
[2025-08-02] MEDS: LEVOTHYROXINE SODIUM 75 MCG TABLET PO (05:52)
[2025-08-02 06:42] LABS: Hematocrit 39.0 % (37.0-47.0); Hemoglobin 12.9 g/dL (12.0-15.0); Mean Corpuscular HGB Conc 33.1 g/dl (32-36); Mean Corpuscular Hemoglobin 34.0 pg (26-34); Mean Corpuscular Volume 102.9 fl (80-100); Platelet Count Result 215 k/mm3 (150-375); Red Blood Count 3.79 M/mm3 (4.2-5.4); White Blood Count 4.2 K/mm3 (4.5-10.0)
[2025-08-02 07:22] LABS: Alanine Aminotransferase 37 U/L (6-35); Albumin Level 3.5 g/dL (3.5-5.1); Alkaline Phosphatase 369 U/L (38-126); Anion Gap 10 mmol/L (4-12); Aspartate Amino Transferase 51 U/L (14-36); Bilirubin,Total 5.6 mg/dL (0.2-1.3); Blood Urea Nitrogen 22 mg/dL (7-17); Calcium 8.3 mg/dL (8.4-10.2); Carbon Dioxide 22 mmol/L (22-30); Chloride 93 mmol/L (98-107); Estimated CRCL calculation 71 ml/min; Estimated Glomerular Filt Rate 58; Glucose 119 mg/dL (65-110); Potassium 4.5 mmol/L (3.4-5.0); Sodium 125 mmol/L (137-145); Total Protein 7.1 g/dL (6.3-8.2)
[2025-08-02 08:50] VITALS: PULSE 64
[2025-08-02] MEDS: CHOLECALCIFEROL (VITAMIN D3) 125 MCG (5,000 UNITS) TABLET PO (08:50)
[2025-08-02] MEDS: MAGNESIUM OXIDE 400 MG TABLET PO (08:50)
[2025-08-02] MEDS: METOPROLOL SUCCINATE EXT REL 25 MG TABCR PO (08:50)
[2025-08-02] MEDS: DOCUSATE SODIUM 100 MG CAPSULE PO (08:50)
[2025-08-02] MEDS: APIXABAN 5 MG TABLET PO ×2 (08:50→21:17)
[2025-08-02] MEDS: CYANOCOBALAMIN 500 MCG TABLET PO (08:50)
[2025-08-02] MEDS: FERROUS SULFATE 325 MG TABLET PO (08:50)
[2025-08-02] MEDS: SODIUM CHLORIDE 1 GM TABLET 2 GM PO ×2 (08:50→12:04)
[2025-08-02] MEDS: EMPAGLIFLOZIN 10 MG TABLET PO (08:50)
[2025-08-02] MEDS: FUROSEMIDE 20 MG TABLET PO ×2 (08:50→12:04)
[2025-08-02] MEDS: ESCITALOPRAM OXALATE 10 MG TABLET PO (08:50)
[2025-08-02] MEDS: FAMOTIDINE 20 MG/2 ML VIAL IV PUSH ×2 (08:52→21:17)
[2025-08-02] MEDS: PANTOPRAZOLE 40 MG TABLET PO (08:52)
[2025-08-02] MEDS: CEPHALEXIN 500 MG CAPSULE 1000 MG PO ×2 (09:19→21:17)
--- NOTE | 2025-08-02 10:31 | P.PNNP_ITS ---
Progress Note: A&P Assessment and Plan (1) Hyponatremia: Code(s): E87.1 - Hypo-osmolality and hyponatremia Status: Acute Assessment and Plan: * slow improvement * acute on chronic * baseline sodium seems to run 127 - 136mg/dL in the last year * however, has been in the normal range in the past as well * risk factors for low sodium: * prerenal factors * known CHF/cardiomyopathy * medications: - lexapro (SSRI) - nortriptyline - buspirone - diuretic therapy * thyroid disease * excessive fluid intake (?) * liver cirrhosis * other(?) * evaluation noted to date: * TSH elevated (but T4 and T3 noted) * cortisol on lower end - but stim test okay * urine sodium > 40 * urine osmo > serum osmo * SPEP negative; UPEP with M-spike --> check serum/urine immunofixation * CXR reviewed * previous CT of head (May 2025) negative * on salt tabs with low dose lasix given CXR findings along with fluid restriction * s/p 3% saline on 07/28 and 08/01 * suspect compliance with medications (salt tabs + lasix) and fluid restriction will be an issue on discharge as she intermittently refuses these interventions during this hospitalization... * follow trend of repeat sodium levels (2) Acute kidney injury: Code(s): N17.9 - Acute kidney failure, unspecified Status: Acute Assessment and Plan: * resolved * noted by trend of labs since 07/22/25 * however, baseline creatinine seems to run around 0.7 - 1.2mg/dl in the last year * creatinine has been relatively stable * due to previous diuretic use(?) versus contrast exposure (CT on 07/21) * however, underlying cardiomyopathy and GMDT may be playing a role * follow trend of repeat labs and UOP (3) Hyperkalemia: Code(s): E87.5 - Hyperkalemia Status: Acute Assessment and Plan: * noted by labs on 07/26 * s/p medical management with lokelma * due to previous spironolactone use versus fluctuating kidney function(?) * follow trend of K+ (4) CHF exacerbation: Qualifiers: Heart failure type: combined systolic and diastolic Qualified Code(s): I50.43 - Acute on chronic combined systolic (congestive) and diastolic (congestive) heart failure Code(s): I50.9 - Heart failure, unspecified Status: Acute Assessment and Plan: * mild exacerbation noted on admission * last Echo (02/22/25) noted: * left ventricular systolic function is mildly reduced, estimated at 40 - 45% * right ventricular systolic function is normal * mild to moderate mitral valve regurgitation * severe tricuspid valve regurgitation * diuretic therapy was on hold due to #1 * on low dose lasix * Cardiology recommendations noted (5) Atrial fibrillation: Qualifiers: Atrial fibrillation type: permanent Qualified Code(s): I48.21 - Permanent atrial fibrillation Code(s): I48.91 - Unspecified atrial fibrillation Status: Chronic Assessment and Plan: * rate control strategy * on metoprolol * on Eliquis (6) Liver cirrhosis: Code(s): K74.60 - Unspecified cirrhosis of liver Status: Acute Assessment and Plan: * as noted by imaging during this hospitalization * may be playing a role with #1 * elevated LFTs noted as well (7) Type 2 diabetes mellitus with hyperglycemia: Qualifiers: Diabetes mellitus longterm insulin use: with longterm use Qualified Code(s): E11.65 - Type 2 diabetes mellitus with hyperglycemia; Z79.4 - intermediate (current) use of insulin Code(s): E11.65 - Type 2 diabetes mellitus with hyperglycemia Status: Chronic Assessment and Plan: * follow accu-cheks * glycemic control per hospitalist (8) Intellectual disability: Code(s): F79 - Unspecified intellectual disabilities Status: Chronic Assessment and Plan: * known issue * apparently at baseline per family Will continue to follow. L Subjective Date/time seen: 08/02/25 10:31 Interval history: Follow-up for acute on chronic hyponatremia. Improvement in sodium noted s/p 3% saline infusion yesterday afternoon/evening; otherwise, no apparent distress noted at the time of my visit; noted plan for family meeting today to discuss goals of care. Exam 2 Narrative: General: WD/WN female in NAD Heart: normal S1 and S2; no rub Lungs: clear anteriorly. decreased at bases Abdomen: soft, nontender, nondistended, positive bowel sounds Extremities: no cyanosis or clubbing; no edema Skin: no rash Objective Data Vital Signs Vital Signs: Vital Signs Temp Pulse Resp BP Pulse Ox O2 Del Method 08/02/25 08:50 64 08/02/25 08:00 Room Air 08/02/25 04:40 97.4 F L 96 20 101/57 L 99 08/01/25 22:00 97.6 F 95 16 94/60 L 97 08/01/25 20:00 95 16 97 Room Air Intake/Output Intake/Output: Intake & Output 07/30/25 07/31/25 08/01/25 08/02/25 23:59 23:59 23:59 23:59 Intake Total 980 1080 1930 480 Balance 980 1080 1930 480 Meds/Results Medications: Active Medications Generic Name Dose Route Start Last Admin Trade Name Freq PRN Reason Stop Dose Admin Acetaminophen 650 mg 07/22/25 00:30 07/26/25 08:10 Acetaminophen 325 Mg Tablet PO 650 mg Q6H PRN Administration Mild Pain (1-3) or Fever Albuterol 2 puff 07/22/25 03:53 Albuterol Sulfate (*Sp) Aerosol 1 Puff INHALATION Q6H PRN Shortness Of Breath Or Wheezing Apixaban 5 mg 07/22/25 09:00 08/02/25 08:50 Apixaban 5 Mg Tablet PO 5 mg Q12HR GALINA Administration Bumetanide 1 mg 07/25/25 09:00 07/25/25 08:47 Bumetanide 1 Mg Tablet PO 1 mg On Hold: 07/25/25 11:52 DAILY GALINA Administration Buspirone HCl 10 mg 07/22/25 09:00 08/02/25 08:50 Buspirone Hcl 10 Mg Tablet PO 10 mg Q12HR GALINA Administration Cephalexin HCl 1,000 mg 08/02/25 09:00 08/02/25 09:19 Cephalexin 500 Mg Capsule PO 1,000 mg Q12H GALINA Administration Cyanocobalamin 500 mcg 07/22/25 09:00 08/02/25 08:50 Cyanocobalamin 500 Mcg Tablet PO 500 mcg DAILY GALINA Administration Dextrose 12.5 gm 07/21/25 22:56 07/29/25 01:01 Dextrose 50% 25 Gm/50 Ml Syringe IV PUSH 12.5 gm PRN PRN Administration Hypoglycemia Protocol Docusate Sodium 100 mg 07/22/25 09:00 08/02/25 08:50 Docusate Sodium 100 Mg Capsule PO 100 mg BID GALINA Administration Empagliflozin 10 mg 07/22/25 09:00 08/02/25 08:50 Empagliflozin 10 Mg Tablet PO 10 mg DAILY GALINA Administration Escitalopram Oxalate 10 mg 07/22/25 09:00 08/02/25 08:50 Escitalopram Oxalate 10 Mg Tablet PO 10 mg DAILY GALINA Administration Famotidine 20 mg 07/22/25 09:00 08/02/25 08:52 Famotidine 20 Mg/2 Ml Vial IV PUSH 20 mg Q12HR GALINA Administration Ferrous Sulfate 325 mg 07/22/25 09:00 08/02/25 08:50 Ferrous Sulfate 325 Mg Tablet PO 325 mg DAILY GALINA Administration Fluticasone Propionate 1 spray 07/22/25 03:53 Fluticasone Propionate 0.05% Na Spr 16 Gm Btl (*Bkc) NASAL DAILY PRN allergy symptoms/Rhinitis. Furosemide 20 mg 08/01/25 13:00 08/02/25 12:04 Furosemide 20 Mg Tablet PO 20 mg TID GALINA Administration Glucagon 1 mg 07/21/25 22:56 Glucagon For Inj 1 Mg Vial IM PRN PRN Hypoglycemia Protocol Glucose 15 gm 07/21/25 22:56 Glucose Oral Gel 15 Gm Of Glucse In 37.5 Gm Tube PO PRN PRN Hypoglycemia Protocol Hydroxyzine HCl 25 mg 07/22/25 03:53 07/29/25 20:35 Hydroxyzine Hcl 25 Mg Tablet PO 25 mg Q4H PRN Administration itching or anxiety. Dextrose 1,000 mls @ 100 mls/hr 07/21/25 22:56 07/29/25 09:49 Dextrose 5% 1,000 Ml IVPB Infused PRN PRN Infusion Hypoglycemia Protocol Insulin Aspart 3 - 6 units 07/28/25 12:30 08/02/25 12:51 Insulin Aspart (*Bkc) 100 Units/Ml SUB-Q Not Given TIDWM [facility] Protocol Insulin Glargine 10 units 07/22/25 21:00 08/01/25 21:50 Insulin Glargine (*Bkc) 100 Units/Ml SUB-Q 10 units QHS GALINA Administration Levothyroxine Sodium 75 mcg 07/22/25 06:30 08/02/25 05:52 Levothyroxine Sodium 75 Mcg Tablet PO 75 mcg DAILY@0630 GALINA Administration Lidocaine 1 patch 07/22/25 04:21 Lidocaine 5% Patch TRANSDERM DAILY PRN back pain. Magnesium Oxide 400 mg 07/22/25 09:00 08/02/25 08:50 Magnesium Oxide 400 Mg Tablet PO 400 mg DAILY GALINA Administration Metoprolol Succinate 25 mg 07/22/25 09:00 08/02/25 08:50 Metoprolol Succinate Ext Rel 25 Mg Tabcr PO 25 mg DAILY GALINA Administration Nortriptyline HCl 10 mg 07/22/25 21:00 08/01/25 21:08 Nortriptyline Hcl 10 Mg Capsule PO 10 mg HS GALINA Administration Pantoprazole Sodium 40 mg 07/22/25 09:00 08/02/25 08:52 Pantoprazole 40 Mg Tablet PO 40 mg QAM GALINA Administration Polyethylene Glycol 17 gm 07/22/25 03:53 Polyethylene Glycol 3350 17 Gm Powd.Pack PO DAILY PRN Constipation Sodium Chloride 2 gm 08/01/25 13:00 08/02/25 12:04 Sodium Chloride 1 Gm Tablet PO 2 gm TID GALINA Administration Sucralfate 1 gm 07/22/25 11:30 08/02/25 12:04 Sucralfate 1 Gm Tablet PO 1 gm ACHS GALINA Administration Vitamin D 125 mcg 07/22/25 09:00 08/02/25 08:50 Cholecalciferol (Vitamin D3) 125 Mcg (5,000 Units) Tablet PO 125 mcg DAILY GALINA Administration Radiology Results: ITS Impressions Chest/Abdomen/Pelvis CT 07/21/25 17:48 IMPRESSION: 1. Probable CHF. 2. Cirrhotic disease of the liver with small amount of probable ascites. 3. Probable cystitis. Chest X-Ray 07/27/25 08:21 IMPRESSION: 1. Left lower lobe atelectasis and/or pleural effusion. 2. Mild interstitial pulmonary edema. Labs Labs: Laboratory Tests 08/02/25 05:38 08/02/25 05:38 Calcium 8.3 L Total Bilirubin 5.6 H AST 51 H ALT 37 H Alkaline Phosphatase 369 H Total Protein 7.1 Albumin 3.5
[2025-08-02 12:15] VITALS: BMI 39.9
--- NOTE | 2025-08-02 15:20 | P.PNIM_ITS ---
Progress Note: A&P Assessment and Plan (1) CHF exacerbation: Qualifiers: Heart failure type: combined systolic and diastolic Qualified Code(s): I50.43 - Acute on chronic combined systolic (congestive) and diastolic (congestive) heart failure Code(s): I50.9 - Heart failure, unspecified Status: Acute Assessment and Plan: Treated with IV Bumex in the ED, with significant improvement in clinical status. Marvelithorace metoprolol, bumex on hold for Hyponatremia cardiology following 07/30: Patient currently on Bumex 1 mg p.o. q.d., furosemide 10 mg p.o. t.i.d., empagliflozin 10 mg p.o. q.d., metoprolol succinate 25 mg p.o. q.d. 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 Unclear if acute or chronic however patient has baseline intellectual disability which may affect her ability to ascertain neurological change. Na improving 123, from 118 Continue Salt tablets and Lasix per Nephrology Nephrology following 07/30: Patient currently on sodium chloride tab 1.5 g p.o. t.i.d., Bumex 1 mg p.o. q.d., furosemide 10 mg p.o. t.i.d.. Sodium 122 07/31:Patient currently on sodium chloride tab 1.5 g p.o. t.i.d. and one time dose of 1gm PO tonight, Bumex 1 mg p.o. q.d., furosemide 10 mg p.o. t.i.d.. Sodium 124 (7) Type 2 diabetes mellitus with hyperglycemia: Qualifiers: Diabetes mellitus detention insulin use: with detention use Qualified Code(s): E11.65 - Type 2 diabetes mellitus with hyperglycemia; Z79.4 - detention (current) use of insulin Code(s): E11.65 - Type 2 diabetes mellitus with hyperglycemia Status: Chronic Assessment and Plan: Spoke with patient's sisters who did mention patient gets more irritable when her blood sugar is below 130. Will maintain random blood sugar above 130 given this information Insulin sliding scale at this time (8) Atrial fibrillation: Qualifiers: Atrial fibrillation type: permanent Qualified Code(s): I48.21 - Permanent atrial fibrillation Code(s): I48.91 - Unspecified atrial fibrillation Status: Chronic Assessment and Plan: History of atrial fibrillation on anticoagulation and metoprolol Continue Metoprolol and Eliquis (9) Acute kidney injury: Code(s): N17.9 - Acute kidney failure, unspecified Status: Acute Assessment and Plan: Creatinine mildly elevated to 1.18from 0.99 yesterday, prior baseline was 0.71 in July 04. Could be secondary to hypotension or CHF exacerbation proper, or use of IV Bumex Will trend renal function at this time Currently on Bumex 1 mg p.o. q.d. Currently on Lasix a 10 mg p.o. t.i.d. Cr 1.93 today (10) Anxiety: Code(s): F41.9 - Anxiety disorder, unspecified Status: Acute Assessment and Plan: The patient's sister's report that she becomes very irritable when she is not on her buspirone which is a home medication. Buspirone has been started b.i.d. Subjective Date/time seen: 08/02/25 15:20 Interval history: Patient family wants to discharge the patient tomorrow. No acute events overnight. Patient received 3% saline yesterday Review of Systems Review of Systems: Unobtainable due to patient's intellectual disability Exam Narrative: Weight 104 kg BMI 34.9 Objective Data Vital Signs Vital Signs: Vital Signs - 24 hr 08/01/25 20:00 08/01/25 22:00 08/02/25 04:40 Temperature 97.6 F 97.4 F L Pulse Rate 95 95 96 Respiratory Rate 16 16 20 Blood Pressure 94/60 L 101/57 L Pulse Oximetry 97 97 99 Oxygen Delivery Room Air 08/02/25 08:00 08/02/25 08:50 Temperature Pulse Rate 64 Respiratory Rate Blood Pressure Pulse Oximetry Oxygen Delivery Room Air Intake/Output Intake/Output: Intake & Output 07/30/25 07/31/25 08/01/25 08/02/25 23:59 23:59 23:59 23:59 Intake Total 815 3064 1930 598 Balance 980 5093 1930 480 Meds/Results Medications: Active Medications Generic Name Dose Route Start Last Admin Trade Name Freq PRN Reason Stop Dose Admin Acetaminophen 650 mg 07/22/25 00:30 07/26/25 08:10 Acetaminophen 325 Mg Tablet PO 650 mg Q6H PRN Administration Mild Pain (1-3) or Fever Albuterol 2 puff 10/13/25 03:53 Albuterol Sulfate (*Sp) Aerosol 1 Puff INHALATION Q6H PRN Shortness Of Breath Or Wheezing Apixaban 5 mg 07/22/25 09:00 08/02/25 08:50 Apixaban 5 Mg Tablet PO 5 mg Q12HR GALINA Administration Bumetanide 1 mg 07/25/25 09:00 07/25/25 08:47 Bumetanide 1 Mg Tablet PO 1 mg On Hold: 07/25/25 11:52 DAILY GALINA Administration Buspirone HCl 10 mg 07/22/25 09:00 08/02/25 08:50 Buspirone Hcl 10 Mg Tablet PO 10 mg Q12HR GALINA Administration Cephalexin HCl 1,000 mg 08/02/25 09:00 08/02/25 09:19 Cephalexin 500 Mg Capsule PO 1,000 mg Q12H GALINA Administration Cyanocobalamin 500 mcg 07/22/25 09:00 08/02/25 08:50 Cyanocobalamin 500 Mcg Tablet PO 500 mcg DAILY GALINA Administration Dextrose 12.5 gm 07/21/25 22:56 07/29/25 01:01 Dextrose 50% 25 Gm/50 Ml Syringe IV PUSH 12.5 gm PRN PRN Administration Hypoglycemia Protocol Docusate Sodium 100 mg 07/22/25 09:00 08/02/25 08:50 Docusate Sodium 100 Mg Capsule PO 100 mg BID GALINA Administration Empagliflozin 10 mg 07/22/25 09:00 08/02/25 08:50 Empagliflozin 10 Mg Tablet PO 10 mg DAILY GALINA Administration Escitalopram Oxalate 10 mg 07/22/25 09:00 08/02/25 08:50 Escitalopram Oxalate 10 Mg Tablet PO 10 mg DAILY GALINA Administration Famotidine 20 mg 07/22/25 09:00 08/02/25 08:52 Famotidine 20 Mg/2 Ml Vial IV PUSH 20 mg Q12HR GALINA Administration Ferrous Sulfate 325 mg 07/22/25 09:00 08/02/25 08:50 Ferrous Sulfate 325 Mg Tablet PO 325 mg DAILY GALINA Administration Fluticasone Propionate 1 spray 07/22/25 03:53 Fluticasone Propionate 0.05% Na Spr 16 Gm Btl (*Bkc) NASAL DAILY PRN allergy symptoms/Rhinitis. Furosemide 20 mg 08/01/25 13:00 08/02/25 12:04 Furosemide 20 Mg Tablet PO 20 mg TID GALINA Administration Glucagon 1 mg 07/21/25 22:56 Glucagon For Inj 1 Mg Vial IM PRN PRN Hypoglycemia Protocol Glucose 15 gm 07/21/25 22:56 Glucose Oral Gel 15 Gm Of Glucse In 37.5 Gm Tube PO PRN PRN Hypoglycemia Protocol Hydroxyzine HCl 25 mg 07/22/25 03:53 07/29/25 20:35 Hydroxyzine Hcl 25 Mg Tablet PO 25 mg Q4H PRN Administration itching or anxiety. Dextrose 1,000 mls @ 100 mls/hr 07/21/25 22:56 07/29/25 09:49 Dextrose 5% 1,000 Ml IVPB Infused PRN PRN Infusion Hypoglycemia Protocol Insulin Aspart 3 - 6 units 07/28/25 12:30 08/02/25 12:51 Insulin Aspart (*Bkc) 100 Units/Ml SUB-Q Not Given TIDWM GALINA Protocol Insulin Glargine 10 units 07/22/25 21:00 08/01/25 21:50 Insulin Glargine (*Bkc) 100 Units/Ml SUB-Q 10 units QHS GALINA Administration Levothyroxine Sodium 75 mcg 07/22/25 06:30 08/02/25 05:52 Levothyroxine Sodium 75 Mcg Tablet PO 75 mcg DAILY@0630 GALINA Administration Lidocaine 1 patch 07/22/25 04:21 Lidocaine 5% Patch TRANSDERM DAILY PRN back pain. Magnesium Oxide 400 mg 07/22/25 09:00 08/02/25 08:50 Magnesium Oxide 400 Mg Tablet PO 400 mg DAILY GALINA Administration Metoprolol Succinate 25 mg 07/22/25 09:00 08/02/25 08:50 Metoprolol Succinate Ext Rel 25 Mg Tabcr PO 25 mg DAILY GALINA Administration Nortriptyline HCl 10 mg 07/22/25 21:00 08/01/25 21:08 Nortriptyline Hcl 10 Mg Capsule PO 10 mg HS GALINA Administration Pantoprazole Sodium 40 mg 07/22/25 09:00 08/02/25 08:52 Pantoprazole 40 Mg Tablet PO 40 mg QAM GALINA Administration Polyethylene Glycol 17 gm 07/22/25 03:53 Polyethylene Glycol 3350 17 Gm Powd.Pack PO DAILY PRN Constipation Sodium Chloride 2 gm 08/01/25 13:00 08/02/25 12:04 Sodium Chloride 1 Gm Tablet PO 2 gm TID GALINA Administration Sucralfate 1 gm 07/22/25 11:30 08/02/25 12:04 Sucralfate 1 Gm Tablet PO 1 gm ACHS GALINA Administration Vitamin D 125 mcg 07/22/25 09:00 08/02/25 08:50 Cholecalciferol (Vitamin D3) 125 Mcg (5,000 Units) Tablet PO 125 mcg DAILY GALINA Administration Radiology Results: ITS Impressions Chest/Abdomen/Pelvis CT 07/21/25 17:48 IMPRESSION: 1. Probable CHF. 2. Cirrhotic disease of the liver with small amount of probable ascites. 3. Probable cystitis. Chest X-Ray 07/27/25 08:21 IMPRESSION: 1. Left lower lobe atelectasis and/or pleural effusion. 2. Mild interstitial pulmonary edema. Labs Labs: Laboratory Results - last 24 hr 08/01/25 08/01/25 08/01/25 15:12 15:13 15:53 WBC RBC Hgb Hct MCV MCH MCHC RDW Plt Count MPV Sodium Potassium 4.6 Chloride Carbon Dioxide Anion Gap BUN Creatinine Estim Creat Clear Calc Estimated GFR Glucose POC Capillary Glucose Calcium Total Bilirubin AST ALT Alkaline Phosphatase Total Protein Albumin Cortisol Baseline 23.70 Cancelled Cortisol Resp 30 Min 23.00 Cortisol Resp 60 Min 08/01/25 08/01/25 08/01/25 16:47 17:10 17:19 WBC RBC Hgb Hct MCV MCH MCHC RDW Plt Count MPV Sodium 122 L Potassium Chloride Carbon Dioxide Anion Gap BUN Creatinine Estim Creat Clear Calc Estimated GFR Glucose POC Capillary Glucose 176 H Calcium Total Bilirubin AST ALT Alkaline Phosphatase Total Protein Albumin Cortisol Baseline Cortisol Resp 30 Min Cortisol Resp 60 Min 26.80 08/01/25 08/01/25 08/02/25 21:42 23:29 05:38 WBC 4.2 L RBC 3.79 L Hgb 12.9 Hct 39.0 MCV 102.9 H MCH 34.0 MCHC 33.1 RDW 17.2 H Plt Count 215 MPV 9.7 Sodium 126 L 125 L Potassium 4.5 Chloride 93 L Carbon Dioxide 22 Anion Gap 10 BUN 22 H Creatinine 0.97 Estim Creat Clear Calc 71 Estimated GFR 58 L Glucose 119 H POC Capillary Glucose 203 H Calcium 8.3 L Total Bilirubin 5.6 H AST 51 H ALT 37 H Alkaline Phosphatase 369 H Total Protein 7.1 Albumin 3.5 Cortisol Baseline Cortisol Resp 30 Min Cortisol Resp 60 Min 08/02/25 08/02/25 07:57 11:55 WBC RBC Hgb Hct MCV MCH MCHC RDW Plt Count MPV Sodium Potassium Chloride Carbon Dioxide Anion Gap BUN Creatinine Estim Creat Clear Calc Estimated GFR Glucose POC Capillary Glucose 135 H 186 H Calcium Total Bilirubin AST ALT Alkaline Phosphatase Total Protein Albumin Cortisol Baseline Cortisol Resp 30 Min Cortisol Resp 60 Min Quality VTE Prophylaxis VTE prophylaxis: pharmacologic ordered (Continue home Eliquis.) Hospitalist MIPS Advance Care Plan I have confirmed that the patient's Advanced Care Plan is present, code status is documented, or surrogate decision maker is listed in patient medical record.: Yes Medication Reconciliation I have utilized all available resources to obtain, update and review the patients current medications (includes all prescriptions, OTC, herbals, cannabis, and nutritional supplements).: Yes
--- NOTE | 2025-08-02 18:48 | P.DS_ITS ---
DS: Admitting Diagnosis Discharge Date 08/03/2025 Admitting Diagnosis Weight gain, nausea vomiting and constipation DS: Discharge Diagnosis Discharge Diagnosis (1) CHF exacerbation: Qualifiers: Heart failure type: combined systolic and diastolic Qualified Code(s): I50.43 - Acute on chronic combined systolic (congestive) and diastolic (congestive) heart failure Code(s): I50.9 - Heart failure, unspecified Status: Acute Assessment and Plan: Treated with IV Bumex in the ED, with significant improvement in clinical status. Marvelitnereina metoprolol, bumex on hold for Hyponatremia cardiology following 07/30: Patient currently on Bumex 1 mg p.o. q.d., furosemide 10 mg p.o. t.i.d., empagliflozin 10 mg p.o. q.d., metoprolol succinate 25 mg p.o. q.d. 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 Unclear if acute or chronic however patient has baseline intellectual disability which may affect her ability to ascertain neurological change. Na improving 123, from 118 Continue Salt tablets and Lasix per Nephrology Nephrology following 07/30: Patient currently on sodium chloride tab 1.5 g p.o. t.i.d., Bumex 1 mg p.o. q.d., furosemide 10 mg p.o. t.i.d.. Sodium 122 07/31:Patient currently on sodium chloride tab 1.5 g p.o. t.i.d. and one time dose of 1gm PO tonight, Bumex 1 mg p.o. q.d., furosemide 10 mg p.o. t.i.d.. Sodium 124 (7) Type 2 diabetes mellitus with hyperglycemia: Qualifiers: Diabetes mellitus terminal system operator insulin use: with mcfp use Qualified Code(s): E11.65 - Type 2 diabetes mellitus with hyperglycemia; Z79.4 - half-way (current) use of insulin Code(s): E11.65 - Type 2 diabetes mellitus with hyperglycemia Status: Chronic Assessment and Plan: Spoke with patient's sisters who did mention patient gets more irritable when her blood sugar is below 130. Will maintain random blood sugar above 130 given this information Insulin sliding scale at this time (8) Atrial fibrillation: Qualifiers: Atrial fibrillation type: permanent Qualified Code(s): I48.21 - Permanent atrial fibrillation Code(s): I48.91 - Unspecified atrial fibrillation Status: Chronic Assessment and Plan: History of atrial fibrillation on anticoagulation and metoprolol Continue Metoprolol and Eliquis (9) Acute kidney injury: Code(s): N17.9 - Acute kidney failure, unspecified Status: Acute Assessment and Plan: Creatinine mildly elevated to 1.18from 0.99 yesterday, prior baseline was 0.71 in July 04. Could be secondary to hypotension or CHF exacerbation proper, or use of IV Bumex Will trend renal function at this time Currently on Bumex 1 mg p.o. q.d. Currently on Lasix a 10 mg p.o. t.i.d. Cr 1.93 today (10) Anxiety: Code(s): F41.9 - Anxiety disorder, unspecified Status: Acute Assessment and Plan: The patient's sister's report that she becomes very irritable when she is not on her buspirone which is a home medication. Buspirone has been started b.i.d. 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 Patient did have a CT of the chest abdomen pelvis with contrast performed in the ER which demonstrated cirrhotic changes of the liver with a small amount of ascites bladder changes concerning for cystitis and moderate pancreatic atrophy post cholecystectomy moderate fecal content without evidence of colitis and findings consistent with CHF. Her UA was not consistent with cystitis. She has not had any fevers and has not had any bowel movements since admission. Patient has not had any vomiting since admission to the hospital. She is eating multiple containers of applesauce and drink a fair amount of fluids. During the hospitalization patient was treated for HypoNa: During the day of discharge had a long conversation with slabber light in regards to her hyponatremia. Patient received 3% normal saline on 08/01. Her sodium ranges from 124 to 126. Patient is currently on Lasix 20 mg p.o. t.i.d. and sodium chloride tab 2 mg p.o. t.i.d.. On discharge patient will be continued with Lasix 20 mg p.o. t.i.d. but will decrease the sodium chloride tab to 1 mg p.o. t.i.d. as per Nephrology recommendation. Patient hyponatremia is multifactorial including SIADH versus CHF vs medications versus liver cirrhosis. Patient has a baseline intellectual disability and her metabolic encephalopathy exacerbation cannot be differentiated due to low sodium or other reasons. Patient does not drink much during the hospitalizations so not implementing fluid restriction. Patient can closely follow-up with the PCP and Nephrology as an outpatient. Patient is a not a candidate to live by herself even though her both sisters lives very close by. Patient was also treated for other chronic conditions including CHF, type 2 diabetes mellitus and atrial fibrillation. Regarding diabetes patient insulin dosage has been decreased. Patient needs insulin adjustment as outpatient. The home regimen patient was taking Lantus 15 units HS and insulin aspart 15 units t.i.d.. During discharge it will be decreased to Lantus 10 units HS and insulin aspart 10 units t.i.d. Patient family supposed to come and visit and have a in-person conversation with me but unfortunately they didn't make it. Updated the plan in phone. Patient sometimes denies labs and medication. Also I believe patient previously was not living in a assisted but give a AMA and went home. As per care coordination patient does not want to go to assisted but unfortunately her sister who not able to take care of her at home. On the day of discharge, the patient was seen and examined. Vital signs were stable. Physical exam were stable and labs were reviewed at length. Discharge instructions, medications, and follow-up appointments were discussed with the patient at length and all day questions were answered. ER warnings were given. Status at Discharge Cognitive/behavioral status at discharge: Stable Time Spent with Patient Time attestation: Total time spent providing and/or coordinating discharge services: 45 minutes Exam Narrative: Weight 104 kg BMI 34.9 DS: Data Data Completed and Pending Labs on day of discharge: Labs from last 24 hours 08/02/25 08/02/25 08/01/25 07:57 05:38 23:29 WBC 4.2 L RBC 3.79 L Hgb 12.9 Hct 39.0 MCV 102.9 H MCH 34.0 MCHC 33.1 RDW 17.2 H Plt Count 215 MPV 9.7 Sodium 125 L 126 L Potassium 4.5 Chloride 93 L Carbon Dioxide 22 Anion Gap 10 BUN 22 H Creatinine 0.97 Estim Creat Clear Calc 71 Estimated GFR 58 L Glucose 119 H POC Capillary Glucose 135 H Calcium 8.3 L Total Bilirubin 5.6 H AST 51 H ALT 37 H Alkaline Phosphatase 369 H Total Protein 7.1 Albumin 3.5 Free T4 Cortisol Baseline Cortisol Resp 30 Min Cortisol Resp 60 Min 08/01/25 08/01/25 08/01/25 21:42 17:19 17:10 WBC RBC Hgb Hct MCV MCH MCHC RDW Plt Count MPV Sodium Potassium Chloride Carbon Dioxide Anion Gap BUN Creatinine Estim Creat Clear Calc Estimated GFR Glucose POC Capillary Glucose 203 H 176 H Calcium Total Bilirubin AST ALT Alkaline Phosphatase Total Protein Albumin Free T4 Cortisol Baseline Cortisol Resp 30 Min Cortisol Resp 60 Min 26.80 08/01/25 08/01/25 08/01/25 16:47 15:53 15:13 WBC RBC Hgb Hct MCV MCH MCHC RDW Plt Count MPV Sodium 122 L Potassium Chloride Carbon Dioxide Anion Gap BUN Creatinine Estim Creat Clear Calc Estimated GFR Glucose POC Capillary Glucose Calcium Total Bilirubin AST ALT Alkaline Phosphatase Total Protein Albumin Free T4 Cortisol Baseline Cancelled Cortisol Resp 30 Min 23.00 Cortisol Resp 60 Min 08/01/25 08/01/25 08/01/25 15:12 11:56 05:33 WBC RBC Hgb Hct MCV MCH MCHC RDW Plt Count MPV Sodium Potassium 4.6 Chloride Carbon Dioxide Anion Gap BUN Creatinine Estim Creat Clear Calc Estimated GFR Glucose POC Capillary Glucose 121 H Calcium Total Bilirubin AST ALT Alkaline Phosphatase Total Protein Albumin Free T4 2.16 Cortisol Baseline 23.70 Cortisol Resp 30 Min Cortisol Resp 60 Min Imaging Radiologist's impression: ITS Impressions Chest X-Ray 07/21/25 16:18 Impression: CHF. Left lung nodule. CT chest with contrast recommended Chest/Abdomen/Pelvis CT 07/21/25 17:48 IMPRESSION: 1. Probable CHF. 2. Cirrhotic disease of the liver with small amount of probable ascites. 3. Probable cystitis. Chest X-Ray 07/27/25 08:21 IMPRESSION: 1. Left lower lobe atelectasis and/or pleural effusion. 2. Mild interstitial pulmonary edema. Discharge Plan Discharge Attending physician on discharge: Samir Garcia Consulting providers: Annie Blcok; Jocelyne Thrasher Discharging Clinician: Samir Garcia Anticipated Discharge Date/Time: 07/25/25 11:52 Patient Disposition: SNF Activity: as tolerated Diet: as tolerated Discharge Instructions: Patient needs to follow-up with the Nephrology for sodium follow-up Patient needs to follow-up with the PCP Patient needs to follow-up with endocrinology for further insulin adjustment Patient might get benefit from palliative care consult Patient Instructions: Antibiotic Form, Apixaban (By mouth), Heart Failure (DC) Patient Language: Albanian Stand Alone Forms: General Discharge Information Follow-up/Referrals: Jocelyne Thrasher MD [Physician, Nephrology] Annie Block APN-C [Advanced Practice Nurse, Cardiology] Zach,Oswaldo Rodriguez MD [Primary Care Provider, Unknown] Discharge Medications: New furosemide 20 mg Tablet 20 mg PO TID Qty: 90 0RF sodium chloride 1,000 mg tablet,soluble 1,000 mg PO BID Qty: 30 0RF insulin glargine [Lantus Solostar U-100 Insulin] 100 unit/mL (3 mL) insulin pen 10 unit subcut QHS Qty: 15 0RF insulin aspart U-100 100 unit/mL (3 mL) insulin pen 1 sliding scale dose subcut USEASDIRECTD Qty: 15 1RF Rx Instructions: glucose < 70 mg/dl Follow hypoglycemia orders glucose 70-200 mg/dl No additional insulin glucose 201-250 mg/dl 3 units sub-Q glucose 251-300 mg/dl 4 units sub-Q glucose 301-350 mg/dl 5 units sub-Q glucose 351-400 mg/dl 6 units sub-Q glucose > 400 mg/dl Call Continued buspirone 10 mg tablet 10 mg PO BID ascorbic acid (vitamin C) [Vitamin C] 500 mg tablet 500 mg PO DAILY Eliquis 5 mg tablet 5 mg PO BID Gemtesa 75 mg tablet 75 mg PO DAILY cyanocobalamin (vitamin B-12) [B-12 DOTS] 500 mcg tablet 500 mcg PO DAILY cefadroxil 500 mg capsule 1,000 mg PO Q12H cholecalciferol (vitamin D3) 125 mcg (5,000 unit) tablet 5,000 unit PO DAILY metoprolol succinate 25 mg tablet extended release 24 hr 25 mg PO DAILY spironolactone 25 mg tablet 12.5 mg PO DAILY nortriptyline 10 mg Capsule 10 mg PO HS Qty: 30 0RF lidocaine [Aspercreme (lidocaine)] 4 % adhesive patch,medicated 1 patch topical DAILY PRN (Reason: back pain. ) Qty: 30 0RF polyethylene glycol 3350 [Miralax] 17 gram powder in packet 17 g PO DAILY PRN (Reason: constipation) Qty: 30 0RF levothyroxine 75 mcg tablet 75 mcg PO QAM Qty: 30 0RF magnesium oxide 400 mg (241.3 mg magnesium) tablet 400 mg PO DAILY Qty: 30 0RF ferrous sulfate [FeroSul] 325 mg (65 mg iron) tablet 325 mg PO DAILY Qty: 30 0RF docusate sodium 100 mg capsule 100 mg PO BID Qty: 60 0RF omeprazole 20 mg capsule,delayed release(DR/EC) 20 mg PO DAILY Qty: 30 0RF hydroxyzine HCl 25 mg tablet 25 mg PO Q4H PRN (Reason: itching or anxiety.) Qty: 30 0RF albuterol sulfate 90 mcg/actuation HFA aerosol inhaler 2 puff INHALATION Q6H PRN (Reason: shortness of breath or wheezing) Qty: 2 0RF fluticasone propionate [Flonase Allergy Relief] 50 mcg/actuation spray,suspension 1 spray intranasal DAILY PRN (Reason: allergy symptoms/Rhinitis.) Qty: 10 0RF Rx Instructions: administer into each nostril acetaminophen 500 mg capsule 500 mg PO Q6H PRN (Reason: pain (scale score 1-3) or fever.) Qty: 90 0RF escitalopram oxalate 10 mg tablet 10 mg PO DAILY Qty: 30 0RF Jardiance 10 mg tablet 10 mg PO DAILY Qty: 30 0RF sacubitril-valsartan [Entresto] 24-26 mg tablet 0.5 tablet PO BID Qty: 60 0RF Discontinued insulin aspart U-100 100 unit/mL (3 mL) insulin pen 15 unit SUBCUT TID insulin glargine [Lantus U-100 Insulin] 100 unit/mL solution 15 unit subcut QHS Qty: 10 0RF Date of admission: 07/21/25 19:45 Primary Care Provider: Zach,Oswaldo Rodriguez Admitting Provider: Hopen,Montserrat J. Attending physician on admission: Montserrat Pope Condition: Stable
[2025-08-02 20:00] VITALS: PULSE 89; RESP 16; O2SAT 99
[2025-08-02 21:06] VITALS: BP 92/64; PULSE 89; RESP 16; TEMP 36.3; O2SAT 99
[2025-08-02] MEDS: INSULIN GLARGINE (*BKC) 100 UNITS/ML 10 UNITS SUB-Q (21:16)
[2025-08-02] MEDS: NORTRIPTYLINE HCL 10 MG CAPSULE PO (21:17)
[2025-08-02] MEDS: ACETAMINOPHEN 325 MG TABLET 650 MG PO (21:17)
[2025-08-03] MEDS: SUCRALFATE 1 GM TABLET PO ×2 (05:49→13:13)
[2025-08-03] MEDS: ACETAMINOPHEN 325 MG TABLET 650 MG PO (05:49)
[2025-08-03] MEDS: LEVOTHYROXINE SODIUM 75 MCG TABLET PO (05:49)
[2025-08-03 05:52] VITALS: BP 94/71; PULSE 83; RESP 16; TEMP 36.3; O2SAT 98
[2025-08-03 08:18] LABS: Hematocrit 38.1 % (37.0-47.0); Hemoglobin 12.8 g/dL (12.0-15.0); Mean Corpuscular HGB Conc 33.6 g/dl (32-36); Mean Corpuscular Hemoglobin 34.4 pg (26-34); Mean Corpuscular Volume 102.4 fl (80-100); Platelet Count Result 208 k/mm3 (150-375); Red Blood Count 3.72 M/mm3 (4.2-5.4); White Blood Count 4.6 K/mm3 (4.5-10.0)
[2025-08-03 09:05] LABS: Alanine Aminotransferase 35 U/L (6-35); Albumin Level 3.4 g/dL (3.5-5.1); Alkaline Phosphatase 334 U/L (38-126); Anion Gap 8 mmol/L (4-12); Aspartate Amino Transferase 53 U/L (14-36); Bilirubin,Total 4.7 mg/dL (0.2-1.3); Blood Urea Nitrogen 23 mg/dL (7-17); Calcium 8.7 mg/dL (8.4-10.2); Carbon Dioxide 25 mmol/L (22-30); Chloride 93 mmol/L (98-107); Estimated CRCL calculation 67 ml/min; Estimated Glomerular Filt Rate 54; Glucose 79 mg/dL (65-110); Potassium 4.5 mmol/L (3.4-5.0); Sodium 126 mmol/L (137-145); Total Protein 7.0 g/dL (6.3-8.2)
[2025-08-03] MEDS: SODIUM CHLORIDE 1 GM TABLET 2 GM PO ×2 (09:56→13:13)
[2025-08-03] MEDS: CHOLECALCIFEROL (VITAMIN D3) 125 MCG (5,000 UNITS) TABLET PO (09:56)
[2025-08-03] MEDS: EMPAGLIFLOZIN 10 MG TABLET PO (09:56)
[2025-08-03] MEDS: FUROSEMIDE 20 MG TABLET PO ×2 (09:56→13:13)
[2025-08-03] MEDS: FERROUS SULFATE 325 MG TABLET PO (09:57)
[2025-08-03] MEDS: DOCUSATE SODIUM 100 MG CAPSULE PO (09:57)
[2025-08-03] MEDS: MAGNESIUM OXIDE 400 MG TABLET PO (09:57)
[2025-08-03] MEDS: CEPHALEXIN 500 MG CAPSULE 1000 MG PO (09:57)
[2025-08-03] MEDS: APIXABAN 5 MG TABLET PO (09:57)
[2025-08-03 09:58] VITALS: PULSE 60
[2025-08-03] MEDS: PANTOPRAZOLE 40 MG TABLET PO (09:58)
[2025-08-03] MEDS: METOPROLOL SUCCINATE EXT REL 25 MG TABCR PO (09:58)
[2025-08-03] MEDS: ESCITALOPRAM OXALATE 10 MG TABLET PO (09:58)
[2025-08-03] MEDS: FAMOTIDINE 20 MG/2 ML VIAL IV PUSH (09:58)
[2025-08-03] MEDS: CYANOCOBALAMIN 500 MCG TABLET PO (09:58)
[2025-08-03 14:00] VITALS: BP 116/63; PULSE 83; RESP 18; TEMP 36.2; O2SAT 100
[2025-08-05 15:09] LABS: Immunoglobulin A, Qn 576 mg/dL (87-352); Immunoglobulin G, Qn 1871 mg/dL (586-1602); Immunoglobulin M, Qn 75 mg/dL (26-217)
== END 2025-08-03 17:35 | DRG 291 ==
LOC: ANHED 19:22 → ANHIMU 20:29 → ANH3MEDSUR 07-23 18:46
PROVIDERS: General Practice; Internal Medicine; Internal Medicine Nephrology; Student in an Organized Health Care Education/Training Program; Admitting Provider Internal Medicine; Emergency Provider Emergency Medicine; PCP Family Medicine; Visit Provider General Practice
DX: I11.0 Hypertensive heart disease with heart failure (principal); I50.43 Acute on chronic combined systolic (congestive) and diastolic (congestive) heart failure; E87.1 Hypo-osmolality and hyponatremia; I38 Endocarditis, valve unspecified; N17.9 Acute kidney failure, unspecified; I48.20 Chronic atrial fibrillation, unspecified; R18.8 Other ascites; K74.60 Unspecified cirrhosis of liver; I42.8 Other cardiomyopathies; F79 Unspecified intellectual disabilities; D69.6 Thrombocytopenia, unspecified; K21.9 Gastro-esophageal reflux disease without esophagitis; E03.9 Hypothyroidism, unspecified; N32.81 Overactive bladder; I95.89 Other hypotension; I27.20 Pulmonary hypertension, unspecified; F41.9 Anxiety disorder, unspecified; E11.65 Type 2 diabetes mellitus with hyperglycemia; I36.1 Nonrheumatic tricuspid (valve) insufficiency; I34.0 Nonrheumatic mitral (valve) insufficiency; E87.5 Hyperkalemia; Z74.1 Need for assistance with personal care; Z20.822 Contact with and (suspected) exposure to COVID-19; Z90.49 Acquired absence of other specified parts of digestive tract; Z86.19 Personal history of other infectious and parasitic diseases; Z79.51 Long term (current) use of inhaled steroids; Z79.2 Long term (current) use of antibiotics; Z79.01 Long term (current) use of anticoagulants; Z68.39 Body mass index [BMI] 39.0-39.9, adult; Z79.4 Long term (current) use of insulin; Z95.810 Presence of automatic (implantable) cardiac defibrillator
CPT/HCPCS: 36415; 71045; 71260; 74177; 80048; 80053; 81001; 82533; 82784; 82948; 83605; 83690; 83735; 83880; 83935; 84132; 84155; 84156; 84165; 84166; 84295; 84300; 84439; 84443; 84480; 84484; 85025; 85027; 85610; 85730; 86334; 87637; 93005; 96374; 97110; 97161; 97166; 97530; 97535; 99285; A9270; J0616; J0834; J1815; J1938; J3360; J7030; J7070; J7131; Q9967

== ENCOUNTER 2025-08-16 10:31 | Inpatient (IN) | payer MEDICARE, MEDICAID, SELFPAY ==
--- OUTSIDE RECORDS SUMMARY | 2024-09-10 09:15 | XMS_ITS ---
Author Organization [facility] Address [address] [place], [place] [id number] Care Team Providers Care Membership Manager Name Role Phone JEREMÍAS MAGANA Primary Care Provider REASON FOR VISIT 1 month f/u Medications Medication SIG (Take, Route, Frequency, Duration) Notes Start Date End Date Status Gemtesa 75 MG 1 tablet Orally Once a day 08/09/2024 Active Vitamin D 125 MCG (5000 UT) 1 capsule Orally Once a day 08/09/2024 Active Docusate Sodium 100 MG 1 capsule as need ed Orally twice a day 08/09/2024 Active Levothyroxine Sodium 75 MCG 1 tablet in the morning on an empty stomach Orally Once a day Active Xarelto 20 MG 1 tablet with food Orally Once a day Active Magnesium Oxide 400 MG 2 tablets Orally Once a day 08/09/2024 Active Cefadroxil 500 MG 2 capsules Orally ev jolene 12 hrs; Duration: 30 days 08/09/2024 02/05/2025 Active Omeprazole 20 MG 1 capsule 1/2 to 1 h our before morning meal Orally Once a day Active Ferrous Sulfate 325 (65 Fe) MG 1 tablet Orally Three times a Week Active Escitalopram Oxalate 10 MG 1 tablet Oral ly Once a day Active Albuterol Sulfate HFA 108 (90 Base) MCG/ACT 2 puffs as needed Inhalation every 4 hrs Active Furosemide 40 MG 1 tablet Orally Once a day Active Metoprolol Succinate ER 100 MG 1 tablet Orally Once a day Active Entresto 24-26 MG 1 tablet Orally Twic e a day Active Basaglar KwikPen 100 UNIT/ML 18 units Subcutaneous daily 08/09/2024 Active NovoLOG FlexPen 100 UNIT/ML 10 units plus sliding scale Subcutaneous three times a day 08/09/2024 Active Encounters Encounter Location Date Provider Diagnosis [address] [place], [place] [id number] 09/10/2024 JEREMÍAS MAGANA Plan Of Treatment No Information Progress Notes * Daria RODRIGUEZOB:[birth year]/19 (64 yo F)Acc No.[id number]:09/10/2024 Progress Notes Patient: Loretta NAM Provider: Erick Magana M.D. :1960 A ge:63 Y S ex:Female Date:09/10/2024 Address:[address] [id number] Subjective: * Chief Complaints: * 1 . 1 month f/u. * Medical History: * Medications: T aking Escitalopram Oxalate 10 MG Tablet 1 tablet Orally Once a day , Taking Ferrous Sulfate 325 (65 Fe) MG Tablet Delayed Release 1 tablet Orally Three times a Week , Taking Magnesium Oxide 400 MG Tablet 2 tablets Orally Once a day , Taking Vitamin D 125 MCG (5000 UT) Capsule 1 capsule Orally Once a day , Taking Gemtesa 75 MG Tablet 1 tablet Orally Once a day , Taking Levothyroxine Sodium 75 MCG Tablet 1 tablet in the morning on an empty stomach Orally Once a day , Taking Docusate Sodium 100 MG Capsule 1 capsule as needed Orally twice a day , Taking Xarelto 20 MG Tablet 1 tablet with food Orally Once a day , Taking NovoLOG FlexPen 100 UNIT/ML Solution Pen- injector 10 units plus sliding scale Subcutaneous three times a day , Taking Entresto 24-26 MG Tablet 1 tablet Orally Twice a day , Taking Metoprolol Succinate ER 100 MG Tablet Extended Release 24 Hour 1 tablet Orally Once a day , Taking Basaglar KwikPen 100 UNIT/ML Solution Pen-injector 18 units Subcutaneous daily , Taking Furosemide 40 MG Tablet 1 tablet Orally Once a day , Taking Albuterol Sulfate HFA 108 (90 Base) MCG/ACT Aerosol Solution 2 puffs as needed Inhalation every 4 hrs , Taking Omeprazole 20 MG Capsule Delayed Release 1 capsule 1/2 to 1 hour before morning meal Orally Once a day , Taking Cefadroxil 500 MG Capsule 2 capsules Orally every 12 hrs , stop date 02/05/2025 Objective: * Vitals: Assessment: Plan: * Treatment: * Billing Information: * Visit Code: * Procedure Codes: * Electronic signature of WILL AWAIS MAGANA MD on 08/16/2025 at 12:33 PM SHAPE [employer] Sign off status: Pending * Provider: Erick Magana M.D. Date: 11/11/2023 Generated for Howard wang/Latoya/Raquel on: 10/16/2024 12:33 PM SHAPE HAND
--- OUTSIDE RECORDS SUMMARY | 2024-12-17 08:30 | XMS_ITS ---
Author Organization [facility] Address [address] [facility] [address] [place], [place] [address] Care Team Providers Care Final Inspector Movement Assembly Name Role Phone JEREMÍAS MAGANA Primary Care Provider REASON FOR VISIT 3 month f/u Encounters Encounter Location Date Provider Diagnosis [facility] [address] [facility] [address] [place], [place] [address] 12/17/2024 JEREMÍAS MAGANA Plan Of Treatment No Information Progress Notes * Daria RODRIGUEZOB:[birth year] (64 yo F)Acc No.[id number]:12/17/2024 Progress Notes Patient: Loretta NAM Provider: Erick Magana M.D. :1960 A ge:63 Y S ex:Female Date:12/17/2024 Address:[address] [facility] Subjective: * Chief Complaints: * 1 . 3 month f/u. * Medical History: Objective: * Vitals: Assessment: Plan: * Treatment: * Billing Information: * Visit Code: * Procedure Codes: * Electronic signature of MARJORIE MAGANA MD on 08/16/2025 at 12:32 PM INCIDENT RESPONSE ENGINEER Sign off status: Pending * Provider: Erick Magana M.D. Date: 0 12/17/2024 Generated for Printi ng/Faxing/eTransmitting on: 1 10/16/2024 12:32 PM INCIDENT RESPONSE ENGINEER
--- OUTSIDE RECORDS SUMMARY | 2025-01-09 07:30 | XMS_ITS ---
Author Organization [facility] Address [address] [facility] [address] [place], [place] [address] Care Team Providers Care Supervisor Painting Shipyard Name Role Phone JEREMÍAS MAGANA Primary Care Provider Encounters Encounter Location Date Provider Diagnosis [facility] [address] [facility] [address] [place], [place] [id number] 01/09/2025 EJREMÍAS MAGANA Plan Of Treatment No Information Progress Notes * Daria RODRIGUEZOB:[birth year] (64 yo F)Acc No.[id number]:01/09/2025 Progress Notes Patient: Loretta NAM Provider: Erick Magana M.D. :1960 A ge:64 Y S ex:Female Date:01/09/2025 Address:[address] [facility] Subjective: * Chief Complaints: * * Medical History: Objective: * Vitals: Assessment: Plan: * Treatment: * Billing Information: * Visit Code: * Procedure Codes: * Electronic signature of WILL AWAIS MAGANA MD on 08/16/2025 at 12:32 PM BOAT JOINER HELPER Sign off status: Pending * Provider: Erick Magana M.D. Date: 01/09/2025 Generated for Howard wang/Latoya/eTransmitting on: 10/16/2024 12:32 PM BOAT JOINER HELPER
--- OUTSIDE RECORDS SUMMARY | 2025-08-01 07:00 | XMS_ITS ---
Author Organization [facility] Address [address] [facility] [address] [place], [place] [id number] Care Team Providers Care Roll Inspector Name Role Phone JEREMÍAS MAGANA Primary Care Provider [phone] REASON FOR VISIT 6 month Encounters Encounter Location Date Provider Diagnosis [facility] [address] [facility] [address] [place], [place] [id number] 08/01/2025 JEREMÍAS MAGANA Plan Of Treatment No Information Progress Notes * Daria RODRIGUEZOB:[birth year] (64 yo F)Acc No.[id number]:08/01/2025 Progress Notes Patient: Loretta NAM Provider: Erick Magana M.D. :1960 A ge:64 Y S ex:Female Date:08/01/2025 Address:[address] [place], [id number] Subjective: * Chief Complaints: * 1 . 6 month. * Medical History: Objective: * Vitals: Assessment: Plan: * Treatment: * Billing Information: * Visit Code: * Procedure Codes: * Electronic signature of MARJORIE MAGANA MD on 08/16/2025 at 12:33 PM RANCH MANAGER Sign off status: Pending * Provider: Erick Magana M.D. Date: Generated for Ricki felipe/Fafitog/eTransmitting on: 10/16/2024 12:33 PM RANCH MANAGER
[2025-08-16] VITALS (27 sets, daily range): BP systolic 66–226; BP diastolic 39–176; PULSE 72–90; RESP 9–29; TEMP 36.3–36.4; O2SAT 85–100; BMI 44.4
--- NOTE | ~2025-08-16 | XR_ITS ---
EXAMINATION: XR chest 1V portable COMPARISON: No comparisons available. HISTORY: sob FINDINGS: Mild pulmonary venous congestion. No pneumothorax. Moderate cardiomegaly. Mediastinal and hilar contours are within normal limits. Bones normal. Miscellaneous: None Impression: CHF Reviewed, dictated and finalized at location P. RT ENGINEER Impression: CHF
--- NOTE | 2025-08-16 10:43 | ECG_ITS ---
Test Date: 2025-08-16 11:41:44 Measurements Intervals [place] Rate: 60 P: 0 PA: 0 QRS: 134 QRSD: 93 T: -13 QT: 423 QTc: 423 Interpretive Statements ATRIAL FIBRILLATION LOW VOLTAGE Electronically Signed On 08-16-2025 12:44:22 IT SOFTWARE ENGINEER by Cristino Kingsley D.O
[2025-08-16 11:00] LABS: Add Urine Microscopic? YES; Appearance Urine Cloudy (Clear); Glucose Urine UA Negative (Negative); Leukocyte Esterase Ur 3+ LEU/UL (Negative); Nitrate Urine Positive (Negative); Specific Grav Ur 1.019 (1.001-1.035)
[2025-08-16 11:04] LABS: Hematocrit 35.6 % (37.0-47.0); Hemoglobin 11.5 g/dL (12.0-15.0); Immature Granulocyte Percent A 0.5 % (0-0.5); Lymphocytes Absolute Auto 0.56 K/mm3 (0.9-3.2); Mean Corpuscular HGB Conc 32.3 g/dl (32-36); Mean Corpuscular Hemoglobin 34.6 pg (26-34); Mean Corpuscular Volume 107.2 fl (80-100); Nucleated Red Blood Cells Absolute Auto 0.000 K/mm3 (0.0-0.012); Nucleated Red Blood Cells Perc 0.0 % (0.0-0.2); Platelet Count Result 217 k/mm3 (150-375); Red Blood Count 3.32 M/mm3 (4.2-5.4); White Blood Count 4.3 K/mm3 (4.5-10.0)
[2025-08-16 11:16] LABS: Alanine Aminotransferase 28 U/L (6-35); Albumin Level 3.4 g/dL (3.5-5.1); Alkaline Phosphatase 411 U/L (38-126); Anion Gap 4 mmol/L (4-12); Aspartate Amino Transferase 58 U/L (14-36); Bilirubin,Total 3.3 mg/dL (0.2-1.3); Blood Urea Nitrogen 32 mg/dL (7-17); Calcium 8.7 mg/dL (8.4-10.2); Carbon Dioxide 29 mmol/L (22-30); Chloride 95 mmol/L (98-107); Estimated CRCL calculation 66 ml/min; Estimated Glomerular Filt Rate 52; Glucose 142 mg/dL (65-110); Lipase 23 U/L (23-300); Potassium 5.2 mmol/L (3.4-5.0); Sodium 128 mmol/L (137-145); Total Protein 7.3 g/dL (6.3-8.2)
[2025-08-16 11:19] LABS: INR 1.5; Prothrombin Time 18.5 Seconds (11.1-14.7)
[2025-08-16 11:20] LABS: Partial Thromboplastin Time 36.0 Seconds (22.3-36.8)
[2025-08-16 11:23] LABS: Macrocytosis 1+ (NORMAL); Schistocytes None Seen
--- OUTSIDE RECORDS SUMMARY | 2025-08-16 12:32 | XMS_ITS | Encounter Summary ---
Author Organization [facility] Address [address] [place] [address] Phone Care Team Providers Care Childcare Provider Name Role Phone Oswaldo Serrano MD Primary Care Provider [phone] Angel Crowe DPM Unavailable [phone] Mora Fritz Unavailable Unavailable Ok Jorge MD Unavailable Orlin Urbina APRN, TRANSPORT RN Unavailable [phone] Reason for Visit * Reason Comments Medication Refill Encounter Details Date Type Department Care Team (Late st Contact Info) Description 01/21/2022 Refill [facility] [address] [place] [address] Orlin Urbina APRN, TRANSPORT RN [address] [place] [address] Medication Refill Social History Tobacco Use Types [...] Care Team (Late st Contact Info) Description 11/18/2025 2:30 PM SALES PROJECT MANAGER Office Visit [facility] - Family Medicine - [place] [address] [place] [address] Oswaldo Serrano MD [address] [address] documented as of this encounter Visit Diagnoses Diagnosis Nocturnal enuresis OAB (overactive bladder) Hypertonicity of bladder documented in this encounter Additional Health Concerns Assessment Noted Time PHQ-9 Depression Total Score: 2 07/18/20 20 4:26 PM CDT documented as of this encounter Care Teams Childcare Provider Relationship Specialty Start Date End Date Oswaldo Serrano MD #2 [facility] [address] [place] [address] PCP - General Family Medicine 05/19/17 Angel Crowe DPM #2 [facility] [address] [place] [address] Consulting Physician Podiatry 06/16/17 Mora Fritz [place] Behavioral Health Navigator 06/15/18 Ok Jorge MD #[address] [address] Consulting Physician Endocrinology 05/12/22 Orlin Urbina, ADOPTION MANAGER, TRANSPORT RN [address] [place] [address] Nurse Practitioner Advanced Practice Nurse 11/09/22 documented as of this encounter
--- OUTSIDE RECORDS SUMMARY | 2025-08-16 12:32 | XMS_ITS | Encounter Summary ---
Author Organization [facility] Address [address] [place] [address] Phone Care Team Providers Care Test And Turn Up Technician Name Role Phone Oswaldo Serrano MD Primary Care Provider [phone] Angel Crowe DPM Unavailable [phone] Mora Fritz Unavailable Unavailable Ok Jorge MD Unavailable Orlin Urbina APRN, RADIOTELEPHONE TECHNICAL OPERATOR Unavailable [phone] Reason for Visit * Reason Comments Medication Refill Encounter Details Date Type Department Care Team (Late st Contact Info) Description 11/29/[address] [facility] [address] [place] [address] Orlin Urbina APRN, RADIOTELEPHONE TECHNICAL OPERATOR [address] [place] [address] Medication Refill Social History Tobacco Use Types Packs/Day Years Used Date Smoking Tobacco: Never Smokeless Tobacco: Never Alcohol Use Standard Drinks/Week Comments No 0 (1 standard drink = 0.6 oz pur e alcohol) [facility] Utilities Answer Date Recorded In the past [...] attend chur ch or yazidism services? Never 11/29/2024 Do you belong to any clubs o r organizations such as caodaism groups, unions, fraternal or athletic groups, or [...] Total Score - Questions 1-9 2 10/11 [facility] Occupational Stress Questionnaire Answer Date [...] in a half-way (including now)? No 11/09/2023 Housing Stability Vital [...] in the past 12 m [facility], were you homeless or living in a half-way (including now)? No 11/29/2024 Education Answer Date [...] of Assessment Author 0 11/29/2024 11:52 AM BANKING AND FINANCE INSTRUCTOR [employer] Background * Q1: How often do you have a drink containing alcohol? Answer Date of Assessment Author Never 11/29/2024 11:52 AM BANKING AND FINANCE INSTRUCTOR Mychart, System Background * Q2: How many drinks containing alcohol do you have on a typical day when you are drinking? Answer Date of Assessment Author Patient does not drink 11/29/2024 11:52 AM BANKING AND FINANCE INSTRUCTOR stephon, System Background * Q3: How often do you have six or more drinks on one occasion? Answer Date of Assessment Author Never 11/29/2024 11:52 AM BANKING AND FINANCE INSTRUCTOR Mychart, System Background documented as of this encounter Miscellaneous Notes * Telephone Encounter - Orlin Urbina APRN, CNP - 12/10/2024 10:18 AM BANKING AND FINANCE INSTRUCTOR duplicate ING AND FINANCE INSTRUCTOR * Telephone Encounter - Stephanie Ortiz RN [...] Dept 11/01/24 Office Visit Oswaldo Serrano MD [facility] 08/10/24 Office Visit Connor Yuan APRN, CNP [facility] 03/08/24 Telemedicine Oswaldo Serrano MD [facility] 02/23/24 Office Visit Oswaldo Serrano MD [facility] 01/24/24 Office Visit Orlin Urbina APRN, CNP [facility] Showing recent visits within past 365 days and meeting all other requirements Today's Visits Date Type Provider Dept 11/29/24 Appointment Oswaldo Serrano MD [facility] Showing today's visits and meeting all other requirements Future Appointments No visits were found meeting these conditions. Showing future appointments within next 90 days and meeting all other requirements ING AND FINANCE INSTRUCTOR documented in this encounter Plan of Treatment Upcoming Encounters Date Type Department Care Team (Late st Contact Info) Description 11/18/2025 2:30 PM BANKING AND FINANCE INSTRUCTOR Office Visit [facility] - [facility] Medicine [facility] [address] [place] [address] Oswaldo Serrano MD #[address] [address] documented as of this encounter Visit Diagnoses Not on filedocumented in this encounter Additional Health Concerns Assessment Noted Time PHQ-9 Depression Total Score: 2 11/01/19 3:32 PM BANKING AND FINANCE INSTRUCTOR documented as of this encounter Care Teams Test And Turn Up Technician Relationship Specialty Start Date End Date Oswaldo Serrano MD #[address] [address] PCP - General Family Medicine 05/19/17 Angel Crowe DPM #[address] [address] Consulting Physician Podiatry 06/16/17 Mora Fritz [place] Behavioral Health Navigator 06/15/18 Ok Jorge MD #[address] [address] Consulting Physician Endocrinology 05/12/22 Orlin Urbina ART MODEL, RADIOTELEPHONE TECHNICAL OPERATOR [address] [place] [address] Nurse Practitioner Advanced Practice Nurse 11/09/22 documented as of this encounter
--- OUTSIDE RECORDS SUMMARY | 2025-08-16 12:32 | XMS_ITS | Encounter Summary ---
Author Organization [facility] Address [address] [place] [address] Phone Care Team Providers Care Head Of Measurement & Insights Name Role Phone Oswaldo Srerano MD Primary Care Provider [phone] Angel Crowe DPM Unavailable [phone] Mora Fritz Unavailable Unavailable Ok Jorge MD Unavailable Orlin Urbina APRN, COMMERCIAL REVIEW APPRAISER Unavailable [phone] Reason for Visit * Reason Comments Medication Refill Encounter Details Date Type Department Care Team (Late st Contact Info) Description 01/21/2022 Refill [facility] - [place] [address] [place] [address] Connor Yuan APRN, COMMERCIAL REVIEW APPRAISER #[address] [address] Medication Refill Social History Tobacco Use Types [...] st Contact Info) Description 11/18/2025 2:30 PM 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 - Family [facility] [address] [place] [address] Oswaldo Serrano MD #[address] [address] documented as of this encounter Visit Diagnoses Diagnosis Chronic congestive heart failure, unspecified heart failure type documented in this encounter Additional Health Concerns Assessment Noted Time PHQ-9 Depression Total Score: 2 07/18/20 20 4:26 PM CDT documented as of this encounter Care Teams Head Of Measurement & Insights Relationship Specialty Start Date End Date Oswaldo Serrano MD #[address] [address] PCP - General Family Medicine 05/19/17 Angel Crowe DPM #[address] [address] Consulting Physician Podiatry 06/16/17 Mora Fritz Behavioral Health Navigator 06/15/18 Ok Jorge MD #[address] [address] Consulting Physician Endocrinology 05/12/22 Orlin Urbina APRN, COMMERCIAL REVIEW APPRAISER [address] [place] [address] Nurse Practitioner Advanced Practice Nurse 11/09/22 documented as of this encounter
--- OUTSIDE RECORDS SUMMARY | 2025-08-16 12:32 | XMS_ITS | Encounter Summary ---
Author Organization [facility] Address [address] [place] [address] Phone Care Team Providers Care Network Systems Analyst Name Role Phone Oswaldo Serrano MD Primary Care Provider [phone] Angel Crowe DPCiara Unavailable [phone] Mora Fritz Unavailable Unavailable Ok Jorge MD Unavailable Orlin Urbina APRN, BOX SEALING MACHINE OPERATOR Unavailable [phone] Reason for Visit * Reason Comments Medication Refill Encounter Details Date Type Department Care Team (Late st Contact Info) Description 07/14/2022 Refill [facility] - [place] [address] [place] [address] Oswaldo Serrano MD #[address] [address] Medication Refill Social History Tobacco Use Types [...] st Contact Info) Description 11/18/2025 2:30 PM BURLAP ROLL COVERER Office Visit [facility] - Family [facility] [address] [place] [address] Oswaldo Serrano MD [address] [address] documented as of this encounter Visit Diagnoses Not on filedocumented in this encounter Additional Health Concerns Assessment Noted Time PHQ-9 Depression Total Score: 2 07/18/20 20 4:26 PM CDT documented as of this encounter Care Teams Network Systems Analyst Relationship Specialty Start Date End Date Oswaldo Serrano MD [address] [address] PCP - General Family Medicine 05/19/17 Angel Crowe DPM #[address] [address] Consulting Physician Podiatry 06/16/17 Mora Fritz [place] Behavioral Health Navigator 06/15/18 Ok Jorge MD #[address] [address] Consulting Physician Endocrinology 05/12/22 Orlin Urbina, FEEDER WORKER POWER UNIT OPERATOR, BOX SEALING MACHINE OPERATOR [address] [place] [address] Nurse Practitioner Advanced Practice Nurse 11/09/22 documented as of this encounter
--- OUTSIDE RECORDS SUMMARY | 2025-08-16 12:32 | XMS_ITS | Encounter Summary ---
Author Organization [facility] Address [address] [place] [address] Phone Care Team Providers Care Business Development Engineer Name Role Phone Oswaldo Serrano MD Primary Care Provider [phone] Angel Crowe DPCiara Unavailable [phone] Mora Fritz Unavailable Unavailable Ok Jorge MD Unavailable Orlin Urbian APRN, AMMONIA SOLUTION PREPARER Unavailable [phone] Reason for Visit * Reason Comments Medication Refill Encounter Details Date Type Department Care Team (Late st Contact Info) Description 10/14/2021 [facility]ill [facility] - [place] #2 [place] [address] Oswaldo Serrano MD #[address] [address] Medication Refill Social History Tobacco Use Types [...] COVID-19? No / Unsure 10/07/2021 3:45 PM ENGRAVING PATTERNMAKER documented as of this encounter Miscellaneous Notes [...] [place] 05/14/21 Office Visit Connor Yuan APRN, AMMONIA SOLUTION PREPARER [facility] 02/27/21 Office Visit Oswaldo Serrano MD [facility] [place] 02/16/21 Office Visit Oswaldo Serrano MD [facility] [place] 01/14/21 Office Visit Connor Yuan APRN, AMMONIA SOLUTION PREPARER [place] 12/19/20 Office Visit Oswaldo Serrano MD [facility] [place] 12/18/20 Telemedicine Oswaldo Serrano MD [facility] [place] 12/08/20 [facility] 11/07/20 Telemedicine Connor Yuan APRN, YUDI [facility] Showing recent visits within past 365 days and meeting all other requirements Future Appointments Date Type Provider Dept 01/05/22 Appointment [facility] Showing future appointments within next 90 days and meeting all other requirements AVING PATTERNMAKER documented in this encounter Plan of Treatment Upcoming Encounters Date Type Department Care Team (Late st Contact Info) Description 11/18/2025 2:30 PM ENGRAVING PATTERNMAKER Office Visit [facility] - Family Medicine [facility] #2 [place] [address] Oswaldo Serrano MD #[address] [address] documented as of this encounter Visit Diagnoses Not on filedocumented in this encounter Additional Health Concerns Assessment Noted Time PHQ-9 Depression Total Score: 2 07/18/20 20 4:26 PM CDT documented as of this encounter Care Teams Business Development Engineer Relationship Specialty Start Date End Date Oswaldo Serrano MD #[address] [address] PCP - General Family Medicine 05/19/17 Angel Crowe DPM #2 [facility] [address] [place] [address] Consulting Physician Podiatry 06/16/17 Mora Fritz [place] Behavioral Health Navigator 06/15/18 Ok Jorge MD #[address] [address] Consulting Physician Endocrinology 05/12/22 Orlin Urbina, EXHIBIT BUILDER, AMMONIA SOLUTION PREPARER #2 [place] [address] Nurse Practitioner Advanced Practice Nurse 11/09/22 documented as of this encounter
--- OUTSIDE RECORDS SUMMARY | 2025-08-16 12:32 | XMS_ITS | Encounter Summary ---
Author Organization [facility] Address [address] [place] [address] Phone Care Team Providers Care Proposal Writer Name Role Phone Oswaldo Serrano MD Primary Care Provider Angel Crowe DPCiara Unavailable [phone] Mora Fritz Unavailable Unavailable Ok Jorge MD Unavailable Orlin Urbina APRN, STOPPER MAKER Unavailable [phone] Reason for Visit * Reason Comments Medication Refill Encounter Details Date Type Department Care Team (Late st Contact Info) Description 06/16/2022 Refill [facility] - [place] #2 [place] [address] Oswaldo Serrano MD #[address] [address] Medication Refill Social History Tobacco Use Types [...] Dept 05/25/22 Office Visit Tom Quach [facility] 01/05/22 Office Visit Oswaldo Serrano MD [facility] Showing recent visits within past [...] st Contact Info) Description 11/18/2025 2:30 PM ZINC PLATE CUTTER Office Visit [facility] - Family [facility] #2 [place] [address] Oswaldo Serrano MD [address] [address] documented as of this encounter Visit Diagnoses Not on filedocumented in this encounter Additional Health Concerns Assessment Noted Time PHQ-9 Depression Total Score: 2 07/18/20 20 4:26 PM CDT documented as of this encounter Care Teams Proposal Writer Relationship Specialty Start Date End Date Oswaldo Serrano MD #[address] [address] PCP - General Family Medicine 05/19/17 Angel Crowe DPM #[address] [address] Consulting Physician Podiatry 06/16/17 Mora Fritz [place] Behavioral Health Navigator 06/15/18 Ok Jorge MD #[address] [address] Consulting Physician Endocrinology 05/12/22 Orlin Urbina APRN, STOPPER MAKER #2 [place] [address] Nurse Practitioner Advanced Practice Nurse 11/09/22 documented as of this encounter
--- OUTSIDE RECORDS SUMMARY | 2025-08-16 12:32 | XMS_ITS | Encounter Summary ---
Author Organization [facility] Address [address] [place] [address] Phone Care Team Providers Care Plunger Shovel Operator Name Role Phone Oswaldo Serrano MD Primary Care Provider [phone] Angel Crowe DPM Unavailable [phone] Mora Fritz Unavailable Unavailable Ok Jorge MD Unavailable Orlin Urbina APRN, ROBOTIC MACHINE OPERATOR Unavailable [phone] Reason for Visit * Reason Comments Medication Refill Encounter Details Date Type Department Care Team (Late st Contact Info) Description 10/14/2021 Refill [facility] #[address] [place] [address] Edwar Romo MD #[address] [address] Medication Refill Social History Tobacco Use Types [...] COVID-19? No / Unsure 10/07/2021 3:45 PM PARKING ANALYST documented as of this encounter Miscellaneous Notes * Telephone Encounter - Edwar Romo MD - 10/20/2021 11:28 AM CST Needs follow up appt before refilling medication. ING ANALYST * Telephone Encounter - Peggy Parson RN [...] [facility] 05/14/21 Office Visit Connor Yuan, WAREHOUSE SHIPPING ASSOCIATE, YUDI [facility] 02/27/21 Office Visit MohOswaldo ashford MD [facility] [place] 02/16/21 Office Visit Oswaldo Serrano MD [facility] [place] 01/14/21 Office Visit Connor Yuan APRN, YUDI [facility] 12/19/20 Office Visit Oswaldo Serrano MD [facility] [place] 12/18/20 Telemedicine Oswaldo Serrano MD [facility] [place] 12/08/20 Telemedicine Oswaldo Serrano MD [facility] [place] 11/07/20 Telemedicine Connor Yuan APRN, YUDI [facility] recent visits within past 365 days and meeting all other requirements Future Appointments Date Type Provider Dept 01/05/22 Appointment Oswaldo Serrano MD [facility] Showing future appointments within next 90 days and meeting all other requirements ING ANALYST documented in this encounter Plan of Treatment Upcoming Encounters Date Type Department Care Team (Late st Contact Info) Description 11/18/2025 2:30 PM PARKING ANALYST Office Visit [facility] - Family [facility] #2 [place] [address] Oswaldo Serrano MD #[address] [address] documented as of this encounter Visit Diagnoses Diagnosis Nocturnal enuresis documented in this encounter Additional Health Concerns Assessment Noted Time PHQ-9 Depression Total Score: 2 07/18/20 20 4:26 PM CDT documented as of this encounter Care Teams Plunger Shovel Operator Relationship Specialty Start Date End Date Oswaldo Serrano MD #[address] [address] PCP - General Family Medicine 05/19/17 Angel Crowe DPM #[address] [address] Consulting Physician Podiatry 06/16/17 Mora Fritz [place] Behavioral Health Navigator 06/15/18 Ok Jorge MD #[address] [address] Consulting Physician Endocrinology 05/12/22 Orlin Urbina, WAREHOUSE SHIPPING ASSOCIATE, ROBOTIC MACHINE OPERATOR #2 [place] [address] Nurse Practitioner Advanced Practice Nurse 11/09/22 documented as of this encounter
--- OUTSIDE RECORDS SUMMARY | 2025-08-16 12:32 | XMS_ITS | Encounter Summary ---
Author Organization [facility] Address [address] [place] [address] Phone Care Team Providers Care Packer And Carry Out Name Role Phone Oswaldo Serrano MD Primary Care Provider [phone] Angel Crowe DPM Unavailable [phone] Mora Fritz Unavailable Unavailable Ok Jorge MD Unavailable Orlin Urbina APRN, GREASE PACKER Unavailable [phone] Reason for Visit * Reason Comments Medication Refill Encounter Details Date Type Department Care Team (Late st Contact Info) Description 05/10/2022 Refill [facility] - [place] #2 [place] [address] Ok Jorge MD #[address] [address] Medication Refill Social History Tobacco [...] st Contact Info) Description 11/18/2025 2:30 PM ELECTROCARDIOGRAPH REPAIRER Office Visit [facility] - Family [facility] #2 [place] [address] Oswaldo Serrano MD #[address] [address] documented as of this encounter Visit Diagnoses Not on filedocumented in this encounter Additional Health Concerns Assessment Noted Time PHQ-9 Depression Total Score: 2 07/18/20 20 4:26 PM CDT documented as of this encounter Care Teams Packer And Carry Out Relationship Specialty Start Date End Date Oswaldo Serrano MD #[address] [address] PCP - General Family Medicine 05/19/17 Angel Crowe DPM #2 [facility] [address] [place] [address] Consulting Physician Podiatry 06/16/17 Mora Fritz Behavioral Health Navigator 06/15/18 Ok Jorge MD #[address] [id number] Consulting Physician Endocrinology 05/12/22 Orlin Urbina APRN, GREASE PACKER #2 [place] [address] Nurse Practitioner Advanced Practice Nurse 11/09/22 documented as of this encounter
--- OUTSIDE RECORDS SUMMARY | 2025-08-16 12:32 | XMS_ITS | Encounter Summary ---
Author Organization [facility] Address [address] [place] [address] Phone Care Team Providers Care Head Stock Operator Name Role Phone Oswaldo Serrano MD Primary Care Provider [phone] Angel Crowe DPCiara Unavailable [phone] Mora Fritz Unavailable Unavailable Ok Jorge MD Unavailable Orlin Urbina APRN, DIRECTOR OF INSTITUTIONAL GIVING Unavailable [phone] Reason for Visit * Reason Comments Medication Refill Encounter Details Date Type Department Care Team (Late st Contact Info) Description 09/17/2020 Refill [facility] - [place] #2 [place] [address] Oswaldo Serrano MD #[address] [address] Medication Refill Social History Tobacco Use Types [...] COVID-19? No / Unsure 09/11/2020 1:18 PM RAILROAD FIRER/FIREMAN documented as of this encounter Miscellaneous Notes [...] type 2 diabetes mellitus (HCC) [facility] - Family Medicine - Connor Hutchinson APN, YUDI 2 months ago Acute diarrhea [facility] - Connor Hutchinson APN, YUDI 3 months ago Tick bite, initial encounter [facility] Medical [facility] - Oswaldo Moreno MD 3 months ago Diarrhea, unspecified type [facility] Family [facility] - Oswaldo Moreno MD Upcoming Appointments Future Appointments In 1 month Ok Jorge MD [facility] Group - Endocrinology - [facility] ANTIARMOR WEAPONS INFANTRYMAN - Recent and Past Visits Recent Visits Date Type Provider Dept 09/16/20 Telemedicine Oswaldo Serrano MD [facility] [place] 07/18/20 Office Visit Connor Yuan APN, YUDI [facility] [place] 07/11/20 Telemedicine Connor Yuan APN, YUDI [facility] 06/09/20 Office Visit Oswaldo Serrano, [facility] 05/29/20 Telemedicine Oswaldo Serrano, [facility] [place] 04/07/20 Office Visit Connor Yuan APN, YUDI [facility] 03/18/20 Telemedicine Oswaldo Serrano MD [facility] 12/14/19 Office Visit Merry Elliott, [facility] [place] 08/28/19 Office Visit Oswaldo Serrano, [facility] [place] 06/22/19 Office Visit Connor Yuan APN, DIRECTOR OF INSTITUTIONAL GIVING [facility] [place] Showing recent visits within past 460 days with a meds authorizing provider and meeting all other requirements Future Appointments No visits were found meeting these conditions. Showing future appointments within next 90 days with a meds authorizing provider and meeting all other requirements ROAD FIRER/FIREMAN documented in this encounter Plan of Treatment Upcoming Encounters Date Type Department Care Team (Late st Contact Info) Description 11/18/2025 2:30 PM RAILROAD FIRER/FIREMAN Office Visit [facility] - Family Medicine - [place] #[address] [place] [address] Oswaldo Serrano MD #[address] [address] documented as of this encounter Visit Diagnoses Not on filedocumented in this encounter Additional Health Concerns Infection Onset Date Last Indicated Resolved Time COVID - 19 10/09/2020 10/09/2020 10/11/2020 5:17 AM RAILROAD FIRER/FIREMAN COVID - 19 11/12/2020 11/12/2020 11/16/2020 9:49 AM RAILROAD FIRER/FIREMAN COVID - 19 07/28/2021 07/29/2021 08/17/2021 12:1 6 AM RAILROAD FIRER/FIREMAN Assessment Noted Time PHQ-9 Depression Total Score: 2 07/18/20 20 4:26 PM CDT documented as of this encounter Care Teams Head Stock Operator Relationship Specialty Start Date End Date Oswaldo Serrano MD #2 [facility] [address] [place] [address] PCP - General Family Medicine 05/19/17 Angel Crowe DPM #2 [facility] [address] [place] [address] Consulting Physician Podiatry 06/16/17 Mora Fritz [place] Behavioral Health Navigator 06/15/18 Ok Jorge MD #2 [facility] [address] [place] [address] Consulting Physician Endocrinology 05/12/22 Orlin Urbina APRN, DIRECTOR OF INSTITUTIONAL GIVING #2 [place] [address] Nurse Practitioner Advanced Practice Nurse 11/09/22 documented as of this encounter
--- OUTSIDE RECORDS SUMMARY | 2025-08-16 12:32 | XMS_ITS | Encounter Summary ---
Author Organization [facility] Address [address] [place] [address] Phone Care Team Providers Care Redevelopment Manager Name Role Phone Oswaldo Serrano MD Primary Care Provider [phone] Angel Crowe DPM Unavailable [phone] Mora Fritz Unavailable Unavailable Ok Jorge MD Unavailable Orlin Urbina APRN, WHITE SIDEWALL TIRE BUFFER Unavailable [phone] Reason for Visit * Reason Comments Medication Refill Encounter Details Date Type Department Care Team (Late st Contact Info) Description 12/09/2021 Refill [facility] #2 [place] [address] Orlin Urbina APRN, WHITE SIDEWALL TIRE BUFFER #2 [place] [address] Medication Refill Social History Tobacco Use Types [...] COVID-19? No / Unsure 12/10/2021 3:06 PM LEGAL FILE CLERK documented as of this encounter Miscellaneous Notes * Telephone Encounter - Orlin Urbina APRN, CNP - 12/11/2021 12:52 PM LEGAL FILE CLERK Patient needs follow-up for continued refills L FILE CLERK * Telephone Encounter - Peggy Parson RN [...] 10/27/21 Office Visit Orlin Urbina APRN, CNP [facility] 10/07/21 Office Visit Oswaldo Serrano MD [facility] 07/28/21 Telemedicine Oswaldo Serrano MD [facility] 05/14/21 Office Visit Connor Yuan APRN, [facility]UDI [facility] 02/27/21 Office Visit Oswaldo Serrano MD [facility] [place] 02/16/21 Office Visit Oswaldo Serrano MD [facility] [place] 01/14/21 Office Visit Connor Yuan APRN, WHITE SIDEWALL TIRE BUFFER [facility] 12/19/20 Office Visit Oswaldo Serrano [...] Range Status 07/02/2021 60 >=60 Final L FILE CLERK documented in this encounter Plan of Treatment Upcoming Encounters Date Type Department Care Team (Late st Contact Info) Description 11/18/2025 2:30 PM LEGAL FILE CLERK Office Visit [facility] - Family Medicine [facility] #2 [place] [address] Oswaldo Serrano MD #[address] [address] documented as of this encounter Visit Diagnoses Diagnosis Nocturnal enuresis OAB (overactive bladder) Hypertonicity of bladder documented in this encounter Additional Health Concerns Assessment Noted Time PHQ-9 Depression Total Score: 2 07/18/20 20 4:26 PM CDT documented as of this encounter Care Teams Redevelopment Manager Relationship Specialty Start Date End Date Oswaldo Serrano MD #[address] [address] PCP - General Family Medicine 05/19/17 Angel Crowe DPM #2 [facility] [address] [place] [address] Consulting Physician Podiatry 06/16/17 Mora Fritz Behavioral Health Navigator 06/15/18 Ok Jorge MD #2 [facility] [address] [place] [address] Consulting Physician Endocrinology 05/12/22 Orlin Urbina APRN, WHITE SIDEWALL TIRE BUFFER #2 [place] [address] Nurse Practitioner Advanced Practice Nurse 11/09/22 documented as of this encounter
--- OUTSIDE RECORDS SUMMARY | 2025-08-16 12:32 | XMS_ITS | Encounter Summary ---
Author Organization [facility] Address [address] [place] [address] Phone Care Team Providers Care Head Of Sales And Marketing Name Role Phone Oswaldo Serrano MD Primary Care Provider [phone] Angel Crowe DPM Unavailable [phone] Mora Fritz Unavailable Unavailable Ok Jorge MD Unavailable Orlin Urbina APRN, DISTILLATION OPERATOR HELPER Unavailable [phone] Reason for Visit * Reason Comments Medication Refill Encounter Details Date Type Department Care Team (Late st Contact Info) Description 01/19/2022 Refill [facility] UROLOGY #2 [place] [address] Orlin Urbina APRN, DISTILLATION OPERATOR HELPER #2 [place] [address] Medication Refill Social History Tobacco Use Types [...] st Contact Info) Description 11/18/2025 2:30 PM TRAIN STATION AGENT Office Visit [facility] - Family Medicine [facility] #2 [place] [address] Oswaldo Serrano MD #[address] [address] documented as of this encounter Visit Diagnoses Diagnosis Nocturnal enuresis OAB (overactive bladder) Hypertonicity of bladder documented in this encounter Additional Health Concerns Assessment Noted Time PHQ-9 Depression Total Score: 2 07/18/20 20 4:26 PM CDT documented as of this encounter Care Teams Head Of Sales And Marketing Relationship Specialty Start Date End Date Oswaldo Serrano MD #[address] [address] PCP - General Family Medicine 05/19/17 Angel Crowe DPM #[address] [address] Consulting Physician Podiatry 06/16/17 Mora Fritz [place] Behavioral Health Navigator 06/15/18 Ok Jorge MD #[address] [address] Consulting Physician Endocrinology 05/12/22 Orlin Urbina APRN, DISTILLATION OPERATOR HELPER #2 [place] [address] Nurse Practitioner Advanced Practice Nurse 11/09/22 documented as of this encounter
--- OUTSIDE RECORDS SUMMARY | 2025-08-16 12:32 | XMS_ITS | Encounter Summary ---
Author Organization [facility] Address [address] [place] [address] Phone Care Team Providers Care Cutter Tender Name Role Phone Oswaldo Serrano MD Primary Care Provider [phone] Angel Crowe DPM Unavailable [phone] Mora Fritz Unavailable Unavailable Ok Jorge MD Unavailable Orlin Urbina APRN, PICKLING DRUM OPERATOR Unavailable [phone] Reason for Visit * Reason Comments Medication Refill Encounter Details Date Type Department Care Team (Late st Contact Info) Description 08/20/2020 Refill [facility] - [place] #2 [place] [address] Connor Yuan, JOHN, PICKLING DRUM OPERATOR #[address] [id number] Medication Refill Social History Tobacco Use Types [...] COVID-19? No / Unsure 08/11/2020 2:55 PM RETAIL LEASING AGENT documented as of this encounter Miscellaneous Notes * Telephone Encounter - Connie Gamez RN - 08/20/2020 4:35 PM CST Request for this Med has been requested four times today. [place] LEASING AGENT documented in this encounter Plan of Treatment Upcoming Encounters Date Type Department Care Team (Late st Contact Info) Description 11/18/2025 2:30 PM RETAIL LEASING AGENT Office Visit [facility] - Family Medicine [facility] #2 [place] [address] Oswaldo Serrano MD #[address] [address] documented as of this encounter Visit Diagnoses Diagnosis Vitamin D deficiency Unspecified vitamin D deficiency documented in this encounter Additional Health Concerns Infection Onset Date Last Indicated Resolved Time COVID - 19 10/09/2020 10/09/2020 10/11/2020 5:17 AM RETAIL LEASING AGENT COVID - 19 11/12/2020 11/12/2020 11/16/2020 9:49 AM RETAIL LEASING AGENT COVID - 19 07/28/2021 07/29/2021 08/17/2021 12:1 6 AM RETAIL LEASING AGENT Assessment Noted Time PHQ-9 Depression Total Score: 2 07/18/20 4:26 PM CDT documented as of this encounter Care Teams Cutter Tender Relationship Specialty Start Date End Date Oswaldo Serrano MD #2 [facility] [address] [place] [address] PCP - General Family Medicine 05/19/17 Angel Crowe DPM #2 [facility] [address] [place] [address] Consulting Physician Podiatry 06/16/17 Mora Fritz [place] Behavioral Health Navigator 06/15/18 Ok Jorge MD #2 [facility] [address] [place] [address] Consulting Physician Endocrinology 05/12/22 Orlin Urbina, BALLAST CLEANING OPERATOR, PICKLING DRUM OPERATOR #2 [place] [address] Nurse Practitioner Advanced Practice Nurse 11/09/22 documented as of this encounter
--- OUTSIDE RECORDS SUMMARY | 2025-08-16 12:32 | XMS_ITS | Encounter Summary ---
Author Organization [facility] Address [address] [place] [address] Phone Care Team Providers Care Sweatband Flanger Name Role Phone Oswaldo Serrano MD Primary Care Provider [phone] Angel Crowe DPCiara Unavailable [phone] Mora Fritz Unavailable Unavailable Ok Jorge MD Unavailable Orlin Urbina APRN, FLEXOGRAPHIC PRESS HELPER Unavailable [phone] Reason for Visit * Reason Comments Medication Refill Encounter Details Date Type Department Care Team (Late st Contact Info) Description 01/15/2022 Refill [facility] - [place] #2 [place] [address] Oswaldo Serrano MD #[address] [address] Medication Refill Social History Tobacco Use Types [...] 05/14/21 Office Visit Connor Yuan APRN, CNP [facility] 02/27/21 Office Visit Oswaldo Serrano MD [...] st Contact Info) Description 11/18/2025 2:30 PM DIRECTOR POST Office Visit [facility] - Family [facility] #2 [place] [address] Oswaldo Serrano MD #[address] [address] documented as of this encounter Visit Diagnoses Not on filedocumented in this encounter Additional Health Concerns Assessment Noted Time PHQ-9 Depression Total Score: 2 07/18/20 20 4:26 PM CDT documented as of this encounter Care Teams Sweatband Flanger Relationship Specialty Start Date End Date Oswaldo Serrano MD #[address] [address] PCP - General Family Medicine 05/19/17 Angel Crowe DPM #2 [facility] [address] [place] [address] Consulting Physician Podiatry 06/16/17 Mora Fritz [place] Behavioral Health Navigator 06/15/18 Ok Jorge MD #[address] [address] Consulting Physician Endocrinology 05/12/22 Orlin Urbina APRN, FLEXOGRAPHIC PRESS HELPER #2 [place] [address] Nurse Practitioner Advanced Practice Nurse 11/09/22 documented as of this encounter
--- OUTSIDE RECORDS SUMMARY | 2025-08-16 12:32 | XMS_ITS | Encounter Summary ---
Author Organization [facility] Address [address] [place] [address] Phone Care Team Providers Care Ice Cream Maker Name Role Phone Oswaldo Serrano MD Primary Care Provider [phone] Angel rCowe DPCiara Unavailable [phone] Mora Fritz Unavailable Unavailable Ok Jorge MD Unavailable Orlin Urbina APRN, NURSE STAFF [facility] Unavailable [phone] Reason for Visit * Reason Comments Medication Refill Encounter Details Date Type Department Care Team (Late st Contact Info) Description 10/29/2020 Refill [facility] - [place] [address] [place] [address] Oswaldo Serrano MD [address] [address] Medication Refill Social History Tobacco Use Types [...] COVID-19? No / Unsure 10/29/2020 2:20 PM STYLE ADVISOR documented as of this encounter Miscellaneous [...] Outpatient Visits 2 weeks ago [facility] - Oswaldo Moreno MD 1 month ago Chronic joint pain [facility] - Oswaldo Moreno MD 3 months ago Diabetic polyneuropathy associated with type 2 diabetes mellitus [facility]CC[facility] Hutchinson APN, NURSE STAFF [facility] 3 months ago Acute diarrhea [facility] - Connor Hutchinson APN, NURSE STAFF [facility] 4 months ago Tick bite, initial encounter [facility] - Oswaldo Moreno MD Upcoming Appointments Future Appointments Today Carson Michel MD [facility], [facility] In 1 week Ok Jorge MD [facility] Medical [facility] - Endocrinology - [place], [facility] In 1 month Oswaldo Serrano MD [facility] Medical [facility] - Family Medicine [facility] 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 - 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 and Past Visits Recent Visits Date Type Provider Dept 10/09/20 Office Visit Oswaldo Serrano MD [facility] [place] 09/16/20 Telemedicine Oswaldo Serrano MD [facility] 07/18/20 Office Visit Connor Yuan APN, NURSE STAFF [facility] 07/11/20 Telemedicine Connor Yuan APN, NURSE STAFF [facility] 06/09/20 Office Visit Oswaldo Serrano MD [facility] [place] 05/29/20 Telemedicine Oswaldo Serrano MD [facility] 04/07/20 Office Visit Connor Yuan APN, NURSE STAFF [facility] [place] 03/18/20 Telemedicine Oswaldo Serrano MD [facility] [place] 12/14/19 Office Visit Merry Elliott, [facility] 08/28/19 Office Visit Oswaldo Serrano MD [facility] Showing recent visits within past 460 days with a meds authorizing provider and meeting all other requirements Future Appointments Date Type Provider Dept 12/08/20 Appointment Oswaldo Serrano MD [facility] [place] Showing future appointments within next 90 days with a meds authorizing provider and meeting all other requirements E ADVISOR documented in this encounter Plan of Treatment Upcoming Encounters Date Type Department Care Team (Late st Contact Info) Description 11/18/2025 2:30 PM STYLE ADVISOR Office Visit [facility] - Family Medicine [facility] [address] [place] [address] Oswaldo Serrano MD [address] [address] documented as of this encounter Visit Diagnoses Not on filedocumented in this encounter Additional Health Concerns Infection Onset Date Last Indicated Resolved Time COVID - 19 11/12/2020 11/12/2020 11/16/2020 9:49 AM STYLE ADVISOR COVID - 19 07/28/2021 07/29/2021 08/17/2021 12:1 6 AM STYLE ADVISOR Assessment Noted Time PHQ-9 Depression Total Score: 2 07/18/20 20 4:26 PM CDT documented as of this encounter Care Teams Ice Cream Maker Relationship Specialty Start Date End Date Oswaldo Serrano MD [address] [facility] [address] [place] [address] PCP - General Family Medicine 05/19/17 Angel Crowe DPM [address]2 [facility] [address] [place] [address] Consulting Physician Podiatry 06/16/17 Mora Fritz [place] Behavioral Health Navigator 06/15/18 Ok Jorge MD [address]2 [facility] [address] [place] [address] Consulting Physician Endocrinology 05/12/22 Orlin Urbina, FINANCIAL SERVICES ASSOCIATE, NURSE STAFF [facility] [address] [place] [address] Nurse Practitioner Advanced Practice Nurse 11/09/22 documented as of this encounter
--- OUTSIDE RECORDS SUMMARY | 2025-08-16 12:32 | XMS_ITS | Encounter Summary ---
Author Organization [facility] Address [address] [place] [address] Phone Care Team Providers Care Restorative Care Technician Name Role Phone Oswaldo Serrano MD Primary Care Provider [phone] Angel Crowe DPCiara Unavailable [phone] Mora Fritz Unavailable Unavailable Ok Jorge MD Unavailable Orlin Urbina APRN, MEDICAL RESEARCH TECH Unavailable [phone] Reason for Visit * Reason Comments Medication Refill Encounter Details Date Type Department Care Team (Late st Contact Info) Description 01/26/2022 Refill [facility] [address] [place] [address] Oswaldo Serrano MD [address] [address] Medication Refill Social History Tobacco Use Types [...] [place] 10/27/21 Office Visit Orlin Urbina APRN, MEDICAL RESEARCH TECH [facility] 10/07/21 Office Visit Oswaldo Serrano MD [facility] 07/28/21 Telemedicine Oswaldo Serrano MD [facility] 05/14/21 Office Visit Connor Yuan APRN, MEDICAL RESEARCH TECH [facility] 02/27/21 Office Visit Oswaldo Serrano MD [facility] 02/16/21 Office Visit Oswaldo Serrano MD [facility] Showing recent visits within past 365 [...] st Contact Info) Description 11/18/2025 2:30 PM SPECIAL EDUCATION INCLUSION TEACHER Office Visit [facility] [address] [place] [address] Oswaldo Serrano MD [address] [address] documented as of this encounter Visit Diagnoses Diagnosis Nocturnal enuresis OAB (overactive bladder) Hypertonicity of bladder documented in this encounter Additional Health Concerns Assessment Noted Time PHQ-9 Depression Total Score: 2 07/18/20 20 4:26 PM CDT documented as of this encounter Care Teams Restorative Care Technician Relationship Specialty Start Date End Date Oswaldo Serrano MD [address] [address] PCP - General Family Medicine 05/19/17 Angel Crowe DPM [address]2 [facility] [address] [place] [address] Consulting Physician Podiatry 06/16/17 Mora Fritz Behavioral Health Navigator 06/15/18 Ok Jorge MD [address]2 [facility] [address] [place] [address] Consulting Physician Endocrinology 05/12/22 Orlin Urbina APRN, MEDICAL RESEARCH TECH [address] [place] [address] Nurse Practitioner Advanced Practice Nurse 11/09/22 documented as of this encounter
--- OUTSIDE RECORDS SUMMARY | 2025-08-16 12:32 | XMS_ITS | Clinical Summary ---
Author Organization [facility] Signal Address [address] [place] [address] Care Team Providers Care Computer Repair Technician Name Role Phone Oswaldo Serrano MD Primary Care Provider [phone] Source Comments [facility] Signal,non-owned Affiliates and Associated Physician Practices is amultiple site organization consisting of ambulatory clinics and hospital sitesin [place], [place], [place] and [place]. This disclosure is being madepursuant to the Care Everywhere program and may not contain all information available regarding this patient. Last updated 18.[facility] Signal Allergies Active Allergy Reactions Criticality Noted Date [...] fluticasone propionate (Flonase) 50 MCG/ACT nasal spray Chiloquin 2 (two) sprays into each nostril 2 [...] to ensure Na continues to improve. Family, director of student financial services, nurse, and rapid aware of current treatment [...] f/u. Pt was supposed to follow with [facility], advise to keep that appointment but will [...] f/u. Pt was supposed to follow with [facility], advise to keep that appointment but will [...] f/u. Pt was supposed to follow with [facility], advise to keep that appointment but will [...] f/u. Pt was supposed to follow with [facility], advise to keep that appointment but will [...] f/u. Pt was supposed to follow with [facility], advise to keep that appointment but will [...] f/u. Pt was supposed to follow with [facility], advise to keep that appointment but will [...] (home dose with 80mg PO bid) - AGRICULTURE LABORATORY TECHNICIAN malou and metop succ - cardiac diet with fluid restriction - bid electrolyte monitoring - telemetry monitoring - cardiology consulted, [facility] reported it was denied due to insurance? Assessment & Plan (05/15/2025 11:22 PM CDT): - Last TTE 02/07/2025 with EF 25%, BNP today 2200 - currently deocompensated, will obtain repeat TTE - daily weighs, strict I & O - furosemide 80mg IV tid (home dose with 80mg PO bid) - AGRICULTURE LABORATORY TECHNICIAN malou and metop succ - cardiac [...] f/u. Pt was supposed to follow with [facility], advise to keep that appointment but will [...] f/u. Pt was supposed to follow with [facility], advise to keep that appointment but will [...] f/u. Pt was supposed to follow with [facility], advise to keep that appointment but will [...] f/u. Pt was supposed to follow with [facility], advise to keep that appointment but will [...] f/u. Pt was supposed to follow with [facility], advise to keep that appointment but will [...] f/u. Pt was supposed to follow with [facility], advise to keep that appointment but will [...] f/u. Pt was supposed to follow with [facility], advise to keep that appointment but will [...] f/u. Pt was supposed to follow with [facility], advise to keep that appointment but will [...] f/u. Pt was supposed to follow with [facility], advise to keep that appointment but will [...] f/u. Pt was supposed to follow with [facility], advise to keep that appointment but will [...] f/u. Pt was supposed to follow with [facility], advise to keep that appointment but will [...] f/u. 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 - on skilled nursing suppressive abx therapy with cefadroxil Agitation 05/15/2025 [...] & Plan (05/16/2025 7:26 AM CDT): - AGRICULTURE LABORATORY TECHNICIAN levothyroxine Assessment & Plan (05/15/2025 10:56 PM CDT): - AGRICULTURE LABORATORY TECHNICIAN levothyroxine Atrial fibrillation 05/15/2025 Assessment & [...] & Plan (05/16/2025 1:20 PM CDT): - AGRICULTURE LABORATORY TECHNICIAN rivaroxaban, 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 Assessment & Plan (05/15/2025 11:22 PM CDT): - AGRICULTURE LABORATORY TECHNICIAN rivaroxaban, 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 Prolonged Q-T interval [...] 07/10/2025 Travel 06/19/2025 Telephone Transitional Care at [address] [address] Mia Mohr MA Question 06/12/2025 Telephone Transitional Care at [address] [address] Mia Mohr MA Question 06/07/2025 Telephone Transitional Care at [facility] [address] [place] [address] Radha Villegas, junior sales representative 05/23/2025 Results Follow-Up [facility] 3S ICU [address] [place] [address] Radha Farrell RN 05/20/2025 10:14 AM CDT - 05/20/2025 11:59 PM CDT Hospital Encounter [facility] - Cardiac Assistant Facility Manager [address] [place] [address] Linda Lezama MD Discharge Disposition: Home or Self Care 05/15/2025 6:17 PM CDT - 06/06/2025 5:19 PM CDT Hospital Encounter [facility] [address] [place] [phone] Juno Hernandez MD Eschbach, Heather, DO Gandhi, Avi, MD Mikhalkova, Deana, MD Mehanni, Mina M, MD Hassan, Abdalla H, MD Becker, Erica, MD Kamal, Syeda, MD Hoque, Farzana, MD Brotherton, Timothy, MD Hospitalist Discharge Disposition: [facility] Facility from Last 3 Months Social History Tobacco [...] and heating? Not hard at all 05/15/2025 [facility] [place] [facility] - Occupational Stress [...] any time in the past 12 m [facility], were you homeless or living in a nursing home (including now)? 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 [facility] [address] [place] [phone] Tiffanie Brown MD [address] [facility] [address] [place] [phone] Health Maintenance Due Date Last Done Comments [...] EXAM WITH MONOFILAMENT 05/15/2025 COVID-19 VACCINE ( season) 2025 01/18/2021, 12/23/2020 INFLUENZA VACCINE (#1) 2025 , 07/18/2020, 06/22/2019, Additional history exists COLOGUARD (AGES 45-75) - COLON CA SCREENING 09/23/2025 09/23/2022 Colorectal Cancer Screening 09/23/2025 PAP SMEAR 11/09/2025 11/09/2022 DIABETES-HGB A1C 11/16/2025 05/16/2025 MAMMOGRAM 12/01/2025 12/01/2023, 02/2 11/2023, 11/25/2022, Additional history exists DIABETES-SERUM CREATININE 06/06/20262024, [...] NO CULTURE Routine 05/16/2025 12:17 AM CDT from Last 3 Months Results * (ABNORMAL) GLUCOSE - POINT OF CARE (06/06/2025 11:18 AM CDT) Only the most recent of111 resultswithin the time period is included. [facility] Glucose WB/POC 273(H) 70 - 99 mg/dL 06/06/2025 11:22 AM CDT [facility] Specimen Type Arterial/C apillary 06/06/2025 11:22 AM CDT [facility] Blood BLOOD SPECIMEN / Unknown 06/06/2025 11:18 AM CDT 06/06/2025 11:22 AM CDT Jennifer Burton MD LAB - POINT OF CARE ORDERABLES Final Result [facility] [address] [place] [address], [facility] [phone] * (ABNORMAL) CBC W/O DIFFERENTIAL (06/06/2025 5:19 AM CDT) Only the most recent of18 resultswithin the time period is included. [facility] WBC 3.7(L) 4.0 - 10.7 x10E9/L 06/06/2025 6:40 AM CDT [facility] RBC Count 3.90 3.90 - 5.20 x10E12/L 06/06/2025 6:40 AM CDT [facility] Hemoglobin 13.6 11.9 - 15.8 g/dL 06/06/2025 6:40 AM CDT [facility] Hematocrit 40.3 34.8 - 46.1 % 06/06/2025 6:40 AM [facility] MCV 103.3(H) 80.0 - 98.0 fL 06/06/2025 6:40 AM [facility] MCH 34.9(H) 26.7 - 33.6 pg 06/06/2025 6:40 AM [facility] MCHC 33.7 31.7 - 36.3 g/dL 06/06/2025 6:40 AM [facility] RDW-CV 16.0(H) 11.3 - 14.8 % 06/06/2025 6:40 AM [facility] Platelet Count 254 150 - 420 x10E9/L 06/06/2025 6:40 AM [facility] MPV 10.0 7.8 - 11.4 fL 06/06/2025 6:40 AM [facility] Blood BLOOD SPECIMEN / Unknown Lab Venipuncture / Unknown 06/06/2025 5:19 AM CDT 06/06/2025 6:30 AM T us Jefry Arizmendi MD LAB - HEMATOLOGY ORDERABLES Fi nal Result [address] [address], [facility] [phone] * (ABNORMAL) COMPREHENSIVE METABOLIC PANEL (06/06/2025 5:19 AM CDT) Only the most recent of14 resultswithin the time period is included. BUN 19 7 - 26 mg/dL 06/06/2025 6:52 AM [facility] Creatinine 0.70 0.56 - 0.96 mg/dL 06/06/2025 6:52 AM [facility] Sodium 133(L) 136 - 145 mmol/L 06/06/2025 6:52 AM [facility] Potassium 4.5 3.5 - 4.5 mmol/L 06/06/2025 6:52 AM [facility] Chloride 104 98 - 107 mmol/L 06/06/2025 6:52 AM [facility] CO2 25 22 - 29 mmol/L 06/06/2025 6:52 AM [facility] Glucose 115(H) 70 - 99 mg/dL 06/06/2025 6:52 AM [facility] Calcium 8.6 8.4 - 10.2 mg/dL 06/06/2025 6:52 AM [facility] Protein Total 6.1 6.0 - 8.3 g/dL 06/06/2025 6:52 AM [facility] Albumin 2.3(L) 3.4 - 5.0 g/dL 06/06/2025 6:52 AM [facility] Bilirubin Total 2.8(H) 0.2 - 1.2 mg/dL 06/06/2025 6:52 AM [facility] Alkaline Phosphatase 298(H) 40 - 150 U/L 06/06/2025 6:52 AM [facility] ALT 24 5 - 55 U/L 06/06/2025 6:52 AM [facility] AST 41(H) 5 - 34 U/L 06/06/2025 6:52 AM [facility] Anion Gap 4(L) 6 - 16 06/06/2025 6:52 AM [facility] BUN/Creatinine Ratio 27(H) 7 - 23 06/06/2025 6:52 AM [facility] Osmolality Calculated 279 275 - 295 mOsm/kg 06/06/2025 6:52 AM [facility] Albumin/Globulin Ratio 0.6(L) 1.1 - 2.3 06/06/2025 6:52 AM [facility] eGFR by CKD-EPI >90 >=90 mL/min/1.7 3 m2 06/06/2025 6:52 AM [facility] Comment:Estimated Glomerular Filtration Rate (eGFR) calculated using the CKD-EPI Creatinine Equation (2020), per the National Kidney Foundation and [place] [employer] Neph[employer] recommendations. Blood BLOOD SPECIMEN / Unknown Lab Venipuncture / Unknown 06/06/2025 5:19 AM CDT 06/06/2025 6:29 AM CDT Lyndon Fishman MD LAB - CHEMISTRY ORDERABLES F inal Result [address] [address], [place] [phone] * PHOSPHORUS BLOOD (06/06/2025 5:19 AM CDT) Only the most recent of11 resultswithin the time period is included. Phosphorus 3.5 2.9 - 5.1 mg/dL 06/06/2025 6:52 AM CDT [facility] Blood BLOOD SPECIMEN / Unknown Lab Venipuncture / Unknown 06/06/2025 5:19 AM CDT 06/06/2025 6:29 AM CDT Lyndon Fishman MD LAB - CHEMISTRY ORDERABLES F inal Result Performing Organization Address [facility] Co de Phone Number [address] [address], [place] [phone] * MAGNESIUM BLOOD (06/06/2025 5:19 AM CDT) Only the most recent of39 resultswithin the time period is included. Magnesium 1.9 1.6 - 2.6 mg/dL 06/06/2025 6:52 AM CDT [facility] Blood BLOOD SPECIMEN / Unknown Lab Venipuncture / Unknown 06/06/2025 5:19 AM CDT 06/06/2025 6:29 AM CDT us Jefry Arizmendi MD LAB - CHEMISTRY ORDERABLES Fin al Result Performing Organization Address City/[facility]/ZIP Co de Phone Number [address] [address], [place] [phone] * FOLATE (05/30/2025 7:00 PM CDT) Folate 17.7 7.0 - 31.4 ng/mL 05/30/2025 9:47 PM CDT [facility] Blood BLOOD SPECIMEN / Unknown Lab Venipuncture / Unknown 05/30/2025 7:00 PM CDT 05/30/2025 8:44 PM CDT Mariah Yadav MD LAB - CHEMISTRY ORDERABLES Final Result [address] [address], [facility] [phone] * (ABNORMAL) VITAMIN B12 (05/30/2025 3:05 AM CDT) Pathologist [facility] Vitamin B12 1,455(H) 213 - 816 pg/mL 05/30/2025 9:57 AM CDT [facility] Blood BLOOD SPECIMEN / Unknown Lab Venipuncture / Unknown 05/30/2025 3:05 AM CDT 05/30/2025 4:14 AM CDT Mariah Yadav MD LAB - CHEMISTRY ORDERABLES Final Result Performing Organization Address City/[facility]/ZIP Co de Phone Number [address] [address], [place] [phone] * ECHO COMPLETE W CONTRAST (05/28/2025 9:26 AM CDT) Only the most recent of2 resultswithin the time period is included. Pathologist [facility] AV area index 1.008 cm /m SSM [...] regurg 372.598 cm/s SSM CV FUJI PACS NH VTI 63.389 cm SSM CV FUJ I [...] 8:36 AM Patient Status: I/P Study Site: [facility] Primary Location: [facility] Info Technical Quality: Adequate Exam Type: ECHO [...] Attending Physician: Jefry Arizmendi Fellow: Buster Lima Movie Editor: Stuart Caldwell Left Ventricle The left ventricle [...] Eq Chadd) 3.01 cm2/m2 PV Regurgitation Doppler NH End Diastolic Gradient 10 mmHg Mitral Valve [...] Artery Doppler PA End Diastolic Pressure for NH 25 mmHg Aorta Name Value Normal Ascending [...] 8:36 AM Patient Status: I/P Study Site: [facility] Technical Quality: Adequate Exam Type: ECHO [...] Attending Physician: Jefry Arizmendi Fellow: Buster Lima Movie Editor: Stuart Caldwell Left Ventricle The left ventricle [...] Eq Chadd) 3.01 cm2/m2 PV Regurgitation Doppler NH End Diastolic Gradient 10 mmHg Mitral Valve [...] Artery Doppler PA End Diastolic Pressure for NH 25 mmHg Aorta Name Value Normal Ascending [...] 6:34 AM CDT) Only the most recent of30 resultswithin the time period is included. BUN 35(H) 7 - 26 mg/dL 05/28/2025 7:18 AM [facility] Creatinine 0.83 0.56 - 0.96 mg/dL 05/28/2025 7:18 AM [facility] Sodium 142 136 - 145 mmol/L 05/28/2025 7:18 AM [facility] Potassium 4.1 3.5 - 4.5 mmol/L 05/28/2025 7:18 AM [facility] Chloride 102 98 - 107 mmol/L 05/28/2025 7:18 AM [facility] CO2 34(H) 22 - 29 mmol/L 05/28/2025 7:18 AM [facility] Glucose 165(H) 70 - 99 mg/dL 05/28/2025 7:18 AM [facility] Albumin 2.2(L) 3.4 - 5.0 g/dL 05/28/2025 7:18 AM [facility] Calcium 9.8 8.4 - 10.2 mg/dL 05/28/2025 7:18 AM [facility] Phosphorus 4.6 2.9 - 5.1 mg/dL 05/28/2025 7:18 AM [facility] Anion Gap 6 6 - 16 05/28/2025 7:18 AM [facility] BUN/Creatinine Ratio 42(H) 7 - 23 05/28/2025 7:18 AM [facility] Osmolality Calculated 306(H) 275 - 295 mOsm/kg 05/28/2025 7:18 AM [facility] eGFR by CKD-EPI 79(L) >=90 mL/min/1.7 3 m2 05/28/2025 7:18 AM [facility] Comment:Estimated Glomerular Filtration Rate (eGFR) calculated using the CKD-EPI Creatinine Equation (2020), per the National Kidney Foundation and [place] [employer] Nephrology recommendations. Blood BLOOD SPECIMEN / Unknown Lab Venipuncture / Unknown 05/28/2025 6:34 AM CDT 05/28/2025 6:46 AM CDT us Lyndon Fishman MD LAB - CHEMISTRY ORDERABLES F inal Result [facility] [address] [place] [address], [facility] [phone] * SARS-COV-2 (COVID-19) RAPID (05/27/2025 2:39 PM CDT) COVID-19 PCR Not detected Not detected 05/27/20 25 3:18 PM CDT [facility] Microbiology SPECIMEN FROM NASOPHARYNGEAL STRUCTURE / Unknown Collection / Unknown 05/27/2025 2:39 PM CDT 05/27/2025 2:44 PM CDT Narrative [facility] - 05/27/2025 3:18 PM CDT The [employer] Xpert Xpress SARS-COV-2 has been authorized by [...] LAB - MICROBIOLOGY ORDERABLE S Final Result [address] [address], [facility] [phone] * XR Abdomen Kub Portable (05/25/2025 9:00 PM CDT) Only the most recent of4 resultswithin the time period is included. Anatomical Region Laterality Modality Abdomen Digital Radiogra phy 05/25/2025 9:09 PM CDT Narrative 05/26/2025 2:33 AM CDT PROCEDURE: XR ABDOMEN KUB PORTABLE, DATE/TIME OF EXAM: 05/25/2025 9:00 PM, LOCATION [facility] INDICATION: R57.8: Other shock (HCC) ADDITIONAL CLINICAL INFORMATION: Ordering Provider Reason For Exam: NG placement COMPARISON: CT abdomen pelvis dated 05/15/2025 and abdominal radiograph dated 05/23/2025. FINDINGS/IMPRESSION: Enteric tube courses below the diaphragm with the distal tip superimposing the distal fundus region. Report dictated by Sven Flores MD, (Integrated VIR resident). > Dictated by Body Specialist I, Jimbo Elmore MD have personally reviewed and interpreted this examination/study. > Interpreting Provider: Jimbo Elmore MD on 05/26/2025 2:33 AM Procedure Note Jimbo Elmore MD - 05/26/2025 PROCEDURE: XR ABDOMEN KUB PORTABLE, DATE/TIME OF EXAM: 05/25/2025 9:00PM, LOCATION [facility] INDICATION: R57.8: Other shock ([facility]) ADDITIONAL CLINICAL INFORMATION: Ordering Provider Reason For Exam: NG placement COMPARISON: CT abdomen pelvis dated 05/15/2025 and abdominal radiographdated 05/23/2025. FINDINGS/IMPRESSION: Enteric tube courses below the diaphragm with the distal tipsuperimposing the distal fundus region. Report dictated by Sven Flores MD, (Integrated VIR resident). > Dictated by Body Specialist I, Jimbo Elmore MD have personally reviewed [...] in the presence of Shania Patel MD, (operations vice president). > Interpreting Provider: Ann-Marie Campa [...] MD, in the presence of Shania Patel MD,(operations vice president). > Interpreting Provider: Ann-Marie Campa MD on 05/23/2025 9:32 AM us Jefry Arizmendi MD DIAGNOSTIC IMAGING ORDERABLES Final Result * (ABNORMAL) BLOOD GASES ART + COOX PANEL (05/22/2025 5:54 AM CDT) Only the most recent of20 resultswithin the time period is included. pH Arterial 7.45 7.35 - 7.45 pH 05/22/2025 6:02 AM CDT [facility] pO2 Arterial 85 80 - 100 mmHg 05/22/2025 6:02 AM [facility] pCO2 Arterial 46(H) 35 - 45 mmHg 6:02 AM [facility] HCO3 Arterial 32.0(H) 20.0 - 30.0 mmol/L 05/22/2025 6:02 AM [facility] BE Arterial 6.9(H) -2.0 - 2.0 mmol/L 05/22/2025 6:02 AM [facility] Oxyhemoglobin Arterial 94.8 % 05/22/2025 6:02 AM [facility] Dexoyhemoglobin (HHB) % 2.2 % 05/22/2025 6:02 AM [facility] Methemoglobin <0.8 0.0 - 2.0 % 05/22/2025 6:02 AM [facility] Carboxyhemoglobin 2.3(H) 0.0 - 2.0 % 2024 6:02 AM [facility] O2 Content Arterial 19.0 Interpret within clinical context ml/dL 05/22/2025 6:02 AM [facility] Hemoglobin by COOX 14.2 12.0 - 15.6 g/dL 05/22/2025 6:02 AM [facility] O2 Saturation Arterial 98 90 - 100 % 05/22/2025 6:02 AM [facility] FI O2 Arterial 40.0 % 05/22/2025 6:02 AM [facility] Blood, arterial ARTERIAL BLOOD SPECIMEN / Unknown Arterial Puncture / Unknown 05/22/2025 5:54 AM [facility] 05/22/2025 5:58 AM [facility] - 05/22/2025 6:02 AM [facility] Carboxyhemoglobin Normal Concentration: Non-smokers: 0-2%; Smokers: 0-9%; Toxic: >20% us Gonzalo Reeves CELL TESTER-RELIGIOUS EDUCATOR LAB - BLOOD GASES ORDERABL ES Final Result [facility] [address] [place] [address], [place] [phone] * (ABNORMAL) BLOOD GASES GATO + COOX PANEL (05/21/2025 7:05 PM [facility]) Only the most recent of9 resultswithin the time period is included. pH Venous 7.52(H) 7.32 - 7.42 pH 05/21/2025 7:19 PM [facility] pO2 Venous 83(H) 35 - 40 mmHg 05/21/2025 7:19 PM [facility] pCO2 Venous 34(L) 40 - 50 mmHg 05/21/2025 7:19 PM [facility] HCO3 Venous 27.8 20 - 30 mmol/L 05/21/2025 7:19 PM [facility] Base Excess Venous 5.1(H) -2.0 - 2.0 mmol/L 05/21/2025 7:19 PM [facility] Oxyhemoglobin Venous 95.4 % 05/10 7:19 PM [facility] Deoxyhemoglobin (HHB) Venous % 1.1 % 05/21/2025 7:19 PM [facility] Methemoglobin <0.8 0.0 - 2.0 % 05/21/2025 7:19 PM [facility] Carboxyhemoglobin 3.1(H) 0.0 - 2.0 % 2024 7:19 PM [facility] O2 Content Venous 17.9 Interpret within clinical context ml/dL 05/21/2025 7:19 PM [facility] Hemoglobin by COOX 13.3 12.0 - 15.6 g/dL 05/21/2025 7:19 PM [facility] O2 Saturation Venous 99 >=70 % 05/10 7:19 PM [facility] FI O2 Mixed Venous 30.0 % 2024 7:19 PM [facility] Blood BLOOD SPECIMEN / Unknown Venipuncture / Unknown 05/21/2025 7:05 PM CDT 05/21/2025 7:09 PM [facility] - 05/21/2025 7:19 PM [facility] Carboxyhemoglobin Normal Concentration: Non-smokers: 0-2%; Smokers: 0-9%; Toxic: >20% Jefry Arizmendi MD LAB - BLOOD GASES ORDERABLES F inal Result Performing Organization Address City/[facility]/ZIP Co de Phone Number [address] [address], [facility] [phone] * LACTIC ACID BLOOD (05/21/2025 7:05 PM CDT) Only the most recent of27 resultswithin the time period is included. [facility] Lactic Acid-Stat 1.5 <=2.0 mmol/L 05/21/2025 8:01 PM CDT [facility] Blood BLOOD SPECIMEN / Unknown Venipuncture / Unknown 05/21/2025 7:05 PM CDT 05/21/2025 7:09 PM CDT Jefry Arizmendi MD LAB - CHEMISTRY ORDERABLES Fin al Result Performing Organization Address [facility] Co de Phone Number [address] [address], [facility] [phone] * (ABNORMAL) CBC W AUTO DIFFERENTIAL (05/21/2025 3:29 AM CDT) Only the most recent of5 resultswithin the time period is included. [facility] WBC 9.1 4.0 - 10.7 x10E9/L 05/21/2025 3:51 AM [facility] RBC Count 4.21 3.90 - 5.20 x10E12/L 05/21/2025 3:51 AM [facility] Hemoglobin 13.8 11.9 - 15.8 g/dL 05/21/2025 3:51 AM [facility] Hematocrit 40.2 34.8 - 46.1 % 05/21/2025 3:51 AM [facility] MCV 95.5 80.0 - 98.0 fL 05/21/2025 3:51 AM [facility] MCH 32.8 26.7 - 33.6 pg 05/21/2025 3:51 AM [facility] MCHC 34.3 31.7 - 36.3 g/dL 05/21/2025 3:51 AM [facility] RDW-CV 17.9(H) 11.3 - 14.8 % 05/21/2025 3:51 AM [facility] Platelet Count 149(L) 150 - 420 x10E9/L 05/21/2025 3:51 AM [facility] MPV 9.3 7.8 - 11.4 fL 05/21/2025 3:51 AM [facility] Neutrophil % 79.1(H) 41.0 - 74.0 % 05/21/2025 3:51 AM [facility] Lymphocyte % 5.0(L) 17.0 - 47.0 % 05/21/2025 3:51 AM [facility] Monocyte % 13.5(H) 3.0 - 11.0 % 05/21/2025 3:51 AM [facility] Eosinophil % 1.0 0.0 - 7.0 % 05/21/2025 3:51 AM [facility] Basophil % 0.8 0.0 - 1.6 % 05/21/2025 3:51 AM [facility] Immature Granulocytes % 0.6 0.0 - 1.0 % 05/21/2025 3:51 AM [facility] Neutrophil Absolute 7.19 1.60 - 7.50 x10E9/L 05/21/2025 3:51 AM [facility] Lymphocyte Absolute 0.45(L) 1.00 - 4.40 x10E9/L 05/21/2025 3:51 AM [facility] Monocyte Absolute 1.22(H) 0.15 - 1.00 x10E9/L 05/21/2025 3:51 AM [facility] Eosinophil Absolute 0.09 0.00 - 0.60 x10E9/L 05/21/2025 3:51 AM [facility] Basophil Absolute 0.07 0.00 - 0.13 x10E9/L 05/21/2025 3:51 AM [facility] Blood BLOOD SPECIMEN / Unknown Venipuncture / Unknown 05/21/2025 3:29 AM CDT 05/21/2025 3:40 AM CDT us Carline Darby DO LAB - HEMATOLOGY ORDERABLES Ayanna vazquez Result [facility] [address] [place] [address], [facility] [phone] * CT Head Wo Contrast (05/20/2025 6:18 [...] 2:28 PM Patient Status: I/P Study Site: [facility] Primary Location: [facility] EStudy Info Technical Quality: Good [...] Attending Physician: Linda Lezama Fellow: Bridgett Silverio Movie Editor: Jamila Robison Performing Physician: Linda Lezama Movie Editor: Bridgett Silverio Complications * There were no [...] fibrillation. On average, the function is moderately [id number]% by visual estimate. * Spontaneous echo contrast [...] 2:28 PM Patient Status: I/P Study Site: [facility] Primary Location: [facility] EStudy Info Technical Quality: Good [...] Attending Physician: Linda Lezama Fellow: Bridgett Silverio Movie Editor: Jamila Robison Performing Physician: Linda Lezama Movie Editor: Bridgett Silverio Complications * There were no [...] fibrillation. On average, the function is moderately [id number] by visual estimate. Right Ventricle The right [...] 9:26 AM CDT) Only the most recent of4 resultswithin the time period is included. Ventricular Rate 125 BPM [facility] QRS Duration ms 116 ms [facility] Q-T Interval ms 338 ms [facility] MUSE QTC Calculation (Bezet) 487 ms [facility] Calculated R Warren 100 degrees [facility] Calculated T Warren -84 degrees [facility] Interpretation EKG ATRIAL FIBRILLATION WITH RAPID VENTRICULAR RESPONSE LOW VOLTAGE QRS ANTEROLATERAL INFARCT , AGE UNDETERMINED ABNORMAL ECG WHEN COMPARED WITH ECG OF 20-MAY-2025 09:25 NO SIGNIFICANT CHANGE WAS FOUND Confirmed by DAREK PARADA MD ([id number]) on 05/21/2025 8:38:24 AM [facility] MUSE 05/20/2025 9:26 AM CDT 05/21/2025 8:38 AM CDT us Linda Lezama MD ECG ORDERABLES Edited Resul t - Final [facility] MUSE * OSMOLALITY URINE (05/20/2025 3:42 AM CDT) Only the most recent of4 resultswithin the time period is included. Osmolality Urine 444 50 - 1,200 mOsm/kg 05/20/2025 4:07 AM CDT [facility] Urine URINE SPECIMEN OBTAINED BY CLEAN CATCH PROCEDURE / Unknown Collection / Unknown 05/20/2025 3:42 AM CDT 05/20/2025 3:46 AM CDT Linda Lezama MD LAB - URINE CHEMISTRY ORDERA BLES Final Result [address] [address], [place] [phone] * OSMOLALITY BLOOD (05/20/2025 3:06 AM CDT) Only the most recent of4 resultswithin the time period is included. Osmolality 295 275 - 295 mOsm/kg 05/20/2025 4:07 AM CDT [facility] Blood BLOOD SPECIMEN / Unknown Venipuncture / Unknown 05/20/2025 3:06 AM CDT 05/20/2025 3:26 AM CDT Linda Lezama MD LAB - CHEMISTRY ORDERABLES F inal Result [address] [address], [place] [phone] * CULTURE SPUTUM+GRAM STAIN (05/19/2025 4:20 PM [...] field Polymorphonuclear cells 05/21/2025 8:08 AM CDT [facility] Gram Stain <10 per low power field Squamous epithelial cells 05/21/2025 8:08 AM CDT [facility] Microbiology SPUTUM / Unknown Collection / Unknown 05/19/2025 4:20 PM CDT 05/19/2025 4:26 PM CDT Ha Hernandez MD LAB - MICROBIOLOGY ORDERABLES Fi nal Result Performing Organization Address City/[facility]/ZIP Co de Phone Number [facility] [address] [place] [address], [facility] [phone] * DIGOXIN LEVEL (05/19/2025 10:21 AM CDT) Digoxin 0.8 0.5 - 1.2 ng/mL 05/19/2025 2:57 PM CDT [facility] Blood BLOOD SPECIMEN / Unknown Venipuncture / Unknown 05/19/2025 10:21 AM CDT 05/19/2025 10:25 AM CDT Narrative [facility] - 05/19/2025 2:57 PM CDT Therapeutic reference range for heart failure is 0.5-0.9 ng/mL. For atrial fibrillation, it is 0.8-1.2 ng/mL. The painter chassis of Digoxin Immune [employer] has stated that no immunoassay technique is suitable for quantitating digoxin in plasma/serum from patients on antibody fragment therapy. Linda Lezama MD LAB - CHEMISTRY ORDERABLES F inal Result Performing Organization Address City/[facility] Co de Phone Number [facility] [address] [place] [address], [place] [phone] * TRIGLYCERIDES BLOOD (05/19/2025 4:00 AM CDT) Triglycerides 131 <150 mg/dL 05/19/2025 4:35 AM CDT [facility] Comment: ATP III Classification of Triglycerides: <150 mg/dL: Normal 150 - 199 mg/dL: Borderline High 200 - 400 mg/dL: High >500 mg/dL: Very High Blood BLOOD SPECIMEN / Unknown Venipuncture / Unknown 05/19/2025 4:00 AM CDT 05/19/2025 4:07 AM CDT Linda Lezama MD LAB - CHEMISTRY ORDERABLES F inal Result Performing Organization Address City/[facility]/ZIP Co de Phone Number [address] [address], [place] [phone] * (ABNORMAL) SVO2 FOR RECALIBRATION (05/18/2025 3:05 AM CDT) Only the most recent of3 resultswithin the time period is included. Pathologist [facility] SVO2 for Recalibration 81.6(H) 66.0 - 77.0 % 05/18/2025 3:29 AM CDT [facility] Blood BLOOD SPECIMEN / Unknown Venipuncture / Unknown 05/18/2025 3:05 AM CDT 05/18/2025 3:25 AM CDT Linda Lezama MD LAB - CHEMISTRY ORDERABLES F inal Result Performing Organization Address [facility]/ZIP Co de Phone Number [address] [address], [place] [phone] * (ABNORMAL) BILIRUBIN DIRECT (05/18/2025 3:05 AM CDT) [facility] Bilirubin Conjugated 4.4(H) 0.1 - 0.5 mg/dL 05/18/2025 4:04 AM CDT [facility] Blood BLOOD SPECIMEN / Unknown Venipuncture / Unknown 05/18/2025 3:05 AM CDT 05/18/2025 3:31 AM CDT Linda Lezama MD LAB - CHEMISTRY ORDERABLES F inal Result Performing Organization Address City/[facility]/ZIP Co de Phone Number [address] [address], [place] [phone] * MRSA PCR (05/17/2025 2:40 PM CDT) [facility] MRSA DNA by PCR Not detected Not detected 05/17/2025 9:06 PM CDT [facility] Microbiology SPECIMEN FROM NASAL FOSSAE / Unknown Collection / Unknown 05/17/2025 2:40 PM CDT 05/17/2025 2:48 PM CDT Narrative [facility] - 05/17/2025 9:06 PM CDT Methicillin-resistant Staphylococcus aureus (MRSA) DNA is not detected (presumed not colonized with MRSA). Linda Lezama MD LAB - MICROBIOLOGY ORDERABLE S Final Result Performing Organization Address City/[facility]/ZIP Co de Phone Number [facility] [address] [place] [address], [facility] [phone] * CULTURE BLOOD (05/17/2025 2:40 PM CDT) Only the most recent of2 resultswithin the time period is included. Culture No growth day 5 DEZ 05/22/2025 7:31 PM CDT [facility] Blood PERIPHERAL BLOOD / Unknown Venipuncture / Unknown 05/17/2025 2:40 PM CDT 05/17/2025 2:48 PM CDT Linda Lezama MD LAB - MICROBIOLOGY ORDERABLE S Final Result Performing Organization Address City/[facility]/ZIP Co de Phone Number [facility] [address] [place] [address], [facility] [phone] * URINALYSIS REFLEX MICROSCOPIC REFLEX CULTURE (05/17/2025 2:39 PM CDT) Color UA Yellow Yellow, Straw 05/17/2025 3:12 PM CDT [facility] Clarity UA Clear Clear 05/17/2025 3:12 PM CDT [facility] Glucose UA Normal Normal 05/17/2025 3:12 PM CDT [facility] Bilirubin UA Negative Negative 05/17/2025 3:12 PM CDT [facility] Ketone UA Negative Negative 05/17/2025 3:12 PM CDT [facility] Specific Horton UA 1.006 1.005 - 1.030 05/17/2025 3:12 PM CDT [facility] Blood UA Negative Negative 05/17/2025 3:12 PM CDT [facility] pH UA 7.0 5.0 - 8.0 05/17/2025 3:12 PM CDT [facility] Protein UA Negative Negative 05/17/2025 3:12 PM CDT [facility] Urobilinogen UA Normal Normal mg/dL 05/17/2025 3:12 PM CDT [facility] Nitrite UA Negative Negative 05/17/2025 3:12 PM CDT [facility] Leukocyte Esterase UA Negative Negative 05/17/2025 3:12 PM CDT [facility] Reflex Status Culture not indicated 05/17/2025 3:12 PM CDT [facility] Urine Microscopy Urine microscopy not indicated 05/17/2025 3:12 PM CDT [facility] Urine URINE SPECIMEN OBTAINED BY SINGLE CATHETERIZATION OF URINARY BLADDER / Unknown Collection / Unknown 05/17/2025 2:39 PM CDT 05/17/2025 2:47 PM CDT us Linda Lezama MD LAB - URINALYSIS ORDERABLES Final Result Performing Organization Address City/State/[facility] Co de Phone Number [facility] [address] [place] [phone], [facility] [phone] * US Abdomen Ltd W Comp Doppler [...] post cholecystectomy. > Dictated by Grace Lawrence (operations vice president). > Dictated by Grace Lawrence 05/17/2025 2:55 PM > Dictated by Body Specialist IKenney have personally reviewed and interpreted this [...] post cholecystectomy. > Dictated by Grace Lawrence (operations vice president). > Dictated by Grace Lwarence 05/17/2025 2:55 PM > Dictated by Body Specialist IKenney have personally reviewed and interpreted this [...] - 145 mmol/L 05/17/2025 4:05 AM CDT [facility] Blood BLOOD SPECIMEN / Unknown Venipuncture / Unknown 05/17/2025 3:11 AM CDT 05/17/2025 3:21 AM CDT us Linda Lezama MD LAB - CHEMISTRY ORDERABLES F inal Result [facility] [address] [place] [address], [facility] [phone] * (ABNORMAL) BASIC METABOLIC PANEL (CALCIUM TOTAL) (05/16/2025 10:47 AM CDT) BUN 29(H) 7 - 26 mg/dL 05/16/2025 11:45 AM [facility] Creatinine 1.39(H) 0.56 - 0.96 mg/dL 05/16/2025 11:45 AM [facility] Sodium 123(LL) 136 - 145 mmol/L 05/16/2025 11:45 AM [facility] Potassium 5.3(H) 3.5 - 4.5 mmol/L 05/16/2025 11:45 AM [facility] Chloride 87(L) 98 - 107 mmol/L 05/16/2025 11:45 AM [facility] CO2 25 22 - 29 mmol/L 05/16/2025 11:45 AM [facility] Glucose 113(H) 70 - 99 mg/dL 05/16/2025 11:45 AM [facility] Calcium 9.7 8.4 - 10.2 mg/dL 05/16/2025 11:45 AM [facility] Anion Gap 11 6 - 16 05/16/2025 11:45 AM [facility] BUN/Creatinine Ratio 21 7 - 23 05/16/2025 11:45 AM [facility] Osmolality Calculated 263(L) 275 - 295 mOsm/kg 05/16/2025 11:45 AM [facility] eGFR by CKD-EPI 43(L) >=90 mL/min/1.7 3 m2 05/16/2025 11:45 AM [facility] Comment:Estimated Glomerular Filtration Rate (eGFR) calculated using the CKD-EPI Creatinine Equation (2020), per the National Kidney Foundation and [place] Society of Nephrology recommendations. Blood BLOOD SPECIMEN / Unknown Lab Venipuncture / Unknown 05/16/2025 10:47 AM CDT 05/16/2025 11:03 AM CDT Adryan Shabazz MD LAB - CHEMISTRY ORDERABLES Final Result Performing Organization Address [facility]/ZIP Co de Phone Number [address] [address], [facility] [phone] * (ABNORMAL) POTASSIUM BLOOD (05/16/2025 10:47 AM CDT) Only the most recent of3 resultswithin the time period is included. Potassium 5.3(H) 3.5 - 4.5 mmol/L 05/16/2025 11:44 AM CDT [facility] Blood BLOOD SPECIMEN / Unknown Lab Venipuncture / Unknown 05/16/2025 10:47 AM CDT 05/16/2025 11:03 AM CDT Dionne Benitez MD LAB - CHEMISTRY ORDERAB LES Final Result Performing Organization Address [facility] Co de Phone Number [address] [address], [facility] [phone] * (ABNORMAL) HEMOGLOBIN A1C (05/16/2025 6:32 AM CDT) Hemoglobin A1c 7.2(H) <=5.6 % 05/16/2025 8:36 AM CDT [facility] Estimated Average Glucose 160 mg/dL 05/16/2025 8:36 AM CDT [facility] Comment: HbA1c Interpretation: Normal : < 5.7% Pre-diabetes: 5.7-6.4% Diabetes: Equal to or greater than 6.5% Test results diagnostic of diabetes should be repeated for confirmation. Treatment target values recommended by ADA and other clinical organizations should be used to evaluate metabolic control in patients. Reference: [place] Diabetes Association, Standards of Care in Diabetes -2020 In patients 70 years and older consider HbA1c target range of 7.0-7.5% (Reference: Garcia Arevalo et al. JAMDA. 2012) The Sebia assay for the measurement of HbA1c is a National Glycohemoglobin Standardization Program (NGSP) certified method. Blood BLOOD SPECIMEN / Unknown Lab Venipuncture / Unknown 05/16/2025 6:32 AM CDT 05/16/2025 6:55 AM CDT Carline Darby DO LAB - CHEMISTRY ORDERABLES Final Result [facility] [address] [place] [address], [facility] [phone] * URINALYSIS REFLEX TO MICROSCOPIC NO CULTURE (05/16/2025 12:17 AM CDT) Color UA Yellow Yellow, Straw 05/16/2025 12:33 AM [facility] Clarity UA Clear Clear 05/16/2025 12:33 AM [facility] Glucose UA Normal Normal 05/16/2025 12:33 AM [facility] Bilirubin UA Negative Negative 05/16/2025 12:33 AM [facility] Ketone UA Negative Negative 05/16/2025 12:33 AM [facility] Specific Horton UA 1.018 1.005 - 1.030 05/16/2025 12:33 AM [facility] Blood UA Negative Negative 05/16/2025 12:33 AM [facility] pH UA 5.0 5.0 - 8.0 05/16/2025 12:33 AM [facility] Protein UA Negative Negative 05/16/2025 12:33 AM [facility] Urobilinogen UA Normal Normal mg/dL 05/16/2025 12:33 AM [facility] Nitrite UA Negative Negative 05/16/2025 12:33 AM [facility] Leukocyte Esterase UA Negative Negative 05/16/2025 12:33 AM [facility] Urine Microscopy Urine microscopy not indicated 05/16/2025 12:33 AM [facility] Urine URINE SPECIMEN OBTAINED BY CLEAN CATCH PROCEDURE / Unknown Collection / Unknown 05/16/2025 12:17 AM CDT 05/16/2025 12:23 AM CDT Carline Darby DO LAB - URINALYSIS ORDERABLES Ayanna l Result Performing Organization Address City/[facility]/ZIP Co de Phone Number [address] [address], [facility] [phone] * SODIUM URINE RANDOM (05/16/2025 12:17 AM CDT) Sodium Urine 77 Not Established mmol/L 05/16/2025 12:46 AM CDT [facility] Urine URINE SPECIMEN OBTAINED BY CLEAN CATCH PROCEDURE / Unknown Collection / Unknown 05/16/2025 12:17 AM CDT 05/16/2025 12:23 AM CDT us Carline Darby DO LAB - URINE CHEMISTRY ORDERABLES Final Result Performing Organization Address [facility]/ZIP Co de Phone Number [address] [address], [facility] [phone] * UREA NITROGEN URINE RANDOM (05/16/2025 12:17 AM CDT) Urea Nitrogen Random Urine 193 Not Established mg/dL 05/16/2025 12:46 AM CDT [facility] Urine URINE SPECIMEN OBTAINED BY CLEAN CATCH PROCEDURE / Unknown Collection / Unknown 05/16/2025 12:17 AM CDT 05/16/2025 12:23 AM CDT Shubhamprachi Darby DO LAB - URINE CHEMISTRY ORDERABLES Final Result Performing Organization Address [facility]/ZIP Co de Phone Number [address] [address], [facility] [phone] * CREATININE URINE RANDOM (05/16/2025 12:17 AM CDT) Creatinine Urine 23.02 Not Established mg/dL 05/16/2025 12:46 AM CDT [facility] Urine URINE SPECIMEN OBTAINED BY CLEAN CATCH PROCEDURE / Unknown Collection / Unknown 05/16/2025 12:17 AM CDT 05/16/2025 12:23 AM CDT Carline Darby LAB - URINE CHEMISTRY ORDERABLES Final Result [facility] [address] [place] [address], [facility] [phone] from Last 3 Months Insurance [facility] MEDICARE [facility] [place] [address] [place] [phone] Advance Directives Documents on File Type Date Recorded 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
--- OUTSIDE RECORDS SUMMARY | 2025-08-16 12:32 | XMS_ITS | Encounter Summary ---
Author Organization [facility] Address [address] [place] [address] Phone Care Team Providers Care Data Collection Interviewer Name Role Phone Oswaldo Serrano MD Primary Care Provider [phone] Angel Crowe DPCiara Unavailable [phone] [place]a Fritz Unavailable Unavailable Ok Jorge MD Unavailable Orlin Urbina APRN, DRAMATIC DIRECTOR Unavailable [phone] Reason for Visit * Reason Comments Medication Refill Encounter Details Date Type Department Care Team (Late st Contact Info) Description 05/19/2022 [facility]ill [facility] - [place] [address] [place] [address] Oswaldo Serrano MD [address] [address] Medication Refill Social History Tobacco Use Types [...] [facility] 07/28/21 Telemedicine [facility] Showing recent visits within past 365 days and meeting all other requirements Future Appointments No visits were found meeting these conditions. Showing future appointments within next 90 days and meeting all other requirements documented in this encounter Plan of Treatment Upcoming Encounters Date Type Department Care Team (Late st Contact Info) Description 11/18/2025 2:30 PM LEGAL SPECIALIST Office Visit [facility] - [facility] - [place] [address] [place] [address] Oswaldo Serrano MD [address] [address] documented as of this encounter Visit Diagnoses Not on filedocumented in this encounter Additional Health Concerns Assessment Noted Time PHQ-9 Depression Total Score: 2 07/18/20 20 4:26 PM CDT documented as of this encounter Care Teams Data Collection Interviewer Relationship Specialty Start Date End Date Oswaldo Serrano MD [address]2 [facility] [address] [place] [address] PCP - General Family Medicine 05/19/17 Angel Crowe DPM #2 [facility] [address] [place] [address] Consulting Physician Podiatry 06/16/17 Mora Fritz [place] Behavioral Health Navigator 06/15/18 Ok Jorge MD #[address] [address] Consulting Physician Endocrinology 05/12/22 Orlin Urbina APRN, DRAMATIC DIRECTOR [address] [place] [address] Nurse Practitioner Advanced Practice Nurse 11/09/22 documented as of this encounter
--- OUTSIDE RECORDS SUMMARY | 2025-08-16 12:32 | XMS_ITS | Encounter Summary ---
Author Organization [facility] Address [address] [place] [address] Phone Care Team Providers Care Biomechanical Engineer Name Role Phone Oswaldo Serrano MD Primary Care Provider [phone] Angel Crowe DPCiara Unavailable [phone] [place] Fritz Unavailable Unavailable Ok Jorge MD Unavailable Orlin Urbina APRN, CASING MIXER Unavailable [phone] Reason for Visit * Reason Comments Medication Refill Encounter Details Date Type Department Care Team (Late st Contact Info) Description 02/03/2022 Refill [facility] [address] [place] [address] Oswaldo Serrano MD #[address] [address] Medication Refill Social History Tobacco Use Types [...] [place] 10/27/21 Office Visit Orlin Urbina APRN, CASING MIXER [facility] [place] 10/07/21 Office Visit Oswaldo Serrano MD [facility] 07/28/21 Telemedicine Oswaldo Serrano MD [facility] 05/14/21 Office Visit Connor Yuan APRN, CASING MIXER [facility] 02/27/21 Office Visit Oswaldo Serrano MD [...] [place] 10/27/21 Office Visit Orlin Urbina APRN, CASING MIXER [facility] [place] 10/07/21 Office Visit Oswaldo Serrano MD [facility] 07/28/21 Telemedicine Oswaldo Serrano MD [facility] 05/14/21 Office Visit Connor Yuan APRN, CASING MIXER [facility] 02/27/21 Office Visit Oswaldo Serrano MD [...] st Contact Info) Description 11/18/2025 2:30 PM SHUTTLE HAND Office Visit [facility] - Family Medicine - [place] [address] [place] [id number] Oswaldo Serrano MD [address] [address] documented as of this encounter Visit Diagnoses Not on filedocumented in this encounter Additional Health Concerns Assessment Noted Time PHQ-9 Depression Total Score: 2 07/18/20 20 4:26 PM CDT documented as of this encounter Care Teams Biomechanical Engineer Relationship Specialty Start Date End Date Oswaldo Serrano MD [address] [address] PCP - General Family Medicine 05/19/17 Angel Crowe DPM [address] [address] Consulting Physician Podiatry 06/16/17 Mora Fritz [place] Behavioral Health Navigator 06/15/18 Ok Jorge MD [address] [address] Consulting Physician Endocrinology 05/12/22 Orlin Urbina APRN, CASING MIXER [address] [place] [address] Nurse Practitioner Advanced Practice Nurse 11/09/22 documented as of this encounter
--- OUTSIDE RECORDS SUMMARY | 2025-08-16 12:32 | XMS_ITS | Encounter Summary ---
Author Organization [facility] Address [address] [place] [address] Phone Care Team Providers Care House Wirer Helper Name Role Phone Oswaldo Serrano MD Primary Care Provider [phone] Angel Crowe DPCiara Unavailable [phone] [place] Fritz Unavailable Unavailable Ok Jorge MD Unavailable Orlin Urbina APRN, DEPOSIT REFUND CLERK Unavailable [phone] Reason for Visit * Reason Comments Medication Refill Encounter Details Date Type Department Care Team (Late st Contact Info) Description 12/16/2021 Refill [facility] - [place] [address] [place] [address] Oswaldo Serrano MD #[address] [address] Medication Refill Social History Tobacco Use Types [...] COVID-19? No / Unsure 12/10/2021 3:06 PM CLINICAL UNIT EDUCATOR documented as of this encounter Miscellaneous Notes [...] [place] 05/14/21 Office Visit Connor Yuan APRN, DEPOSIT REFUND CLERK [place] 02/27/21 Office Visit Oswaldo Serrano MD [facility] 02/16/21 Office Visit Oswaldo Serrano MD [facility] 01/14/21 Office Visit Connor Yuan APRN, DEPOSIT REFUND CLERK [place] 12/19/20 Office Visit Oswaldo Serrano MD [facility] 12/18/20 Telemedicine Oswaldo Serrano MD [facility] Showing recent visits within past 365 days and meeting all other requirements Future Appointments Date Type Provider Dept 01/05/22 Appointment Oswaldo Serrano MD [facility] Showing future appointments within next 90 days and meeting all other requirements ICAL UNIT EDUCATOR documented in this encounter Plan of Treatment Upcoming Encounters Date Type Department Care Team (Late st Contact Info) Description 11/18/2025 2:30 PM CLINICAL UNIT EDUCATOR Office Visit [facility] - Family [facility] [address] [place] [address] Oswaldo Serrano MD #[address] [address] documented as of this encounter Visit Diagnoses Not on filedocumented in this encounter Additional Health Concerns Assessment Noted Time PHQ-9 Depression Total Score: 2 07/18/20 20 4:26 PM CDT documented as of this encounter Care Teams House Wirer Helper Relationship Specialty Start Date End Date Oswaldo Serrano MD #[address] [address] PCP - General Family Medicine 05/19/17 Angel Crowe DPM #[address] [facility] [address] [place] [address] Consulting Physician Podiatry 06/16/17 Mora Fritz [place] Behavioral Health Navigator 06/15/18 Ok Jorge MD #[address] [facility] [address] [place] [address] Consulting Physician Endocrinology 05/12/22 Orlin Urbina APRN, DEPOSIT REFUND CLERK [address] [place] [address] Nurse Practitioner Advanced Practice Nurse 11/09/22 documented as of this encounter
--- OUTSIDE RECORDS SUMMARY | 2025-08-16 12:32 | XMS_ITS | Encounter Summary ---
Author Organization [facility] Address [address] [place] [address] Phone Care Team Providers Care Bag Inspector Name Role Phone Oswaldo Serrano MD Primary Care Provider [phone] Angel Crowe DPM Unavailable [phone] Mora Fritz Unavailable Unavailable Ok Jorge MD Unavailable Orlin Urbina APRN, EXTENSION WORK DIRECTOR Unavailable [phone] Reason for Visit * Reason Comments Medication Refill Encounter Details Date Type Department Care Team (Late st Contact Info) Description 01/15/2022 Refill [facility] #[address] [place] [address] Orlin Urbina APRN, EXTENSION WORK DIRECTOR #[address] [place] [address] Medication Refill Social History Tobacco Use Types [...] Hearn 10/27/21 Office Visit Orlin Urbina APRN, EXTENSION WORK DIRECTOR [facility] Dh[facility]aj 10/07/21 Office Visit Oswaldo Serrano MD [facility] 07/28/21 Telemedicine Oswaldo Serrano MD [facility] 05/14/21 Office Visit Connor Yuan APRN, EXTENSION WORK DIRECTOR [facility] Dhiraj 02/27/21 Office Visit Oswaldo Serrano MD [...] st Contact Info) Description 11/18/2025 2:30 PM ELEVATED MOTORMAN Office Visit [facility] - Family [facility] #[address] [place] [address] Oswaldo Serrano MD #[address] [address] documented as of this encounter Visit Diagnoses Diagnosis Nocturnal enuresis OAB (overactive bladder) Hypertonicity of bladder documented in this encounter Additional Health Concerns Assessment Noted Time PHQ-9 Depression Total Score: 2 07/18/20 20 4:26 PM CDT documented as of this encounter Care Teams Bag Inspector Relationship Specialty Start Date End Date Oswaldo Serrano MD #[address] [address] PCP - General Family Medicine 05/19/17 Angel Crowe DPM #2 [facility] [address] [place] [address] Consulting Physician Podiatry 06/16/17 Mora Fritz [place] Behavioral Health Navigator 06/15/18 Ok Jorge MD #[address] [address] Consulting Physician Endocrinology 05/12/22 Orlin Urbina APRN, EXTENSION WORK DIRECTOR #[address] [place] [address] Nurse Practitioner Advanced Practice Nurse 11/09/22 documented as of this encounter
--- OUTSIDE RECORDS SUMMARY | 2025-08-16 12:32 | XMS_ITS | Encounter Summary ---
Author Organization [facility] Address [address] [place] [address] Phone Care Team Providers Care Director Of Cardiac Rehabilitation Name Role Phone Oswaldo Serrano MD Primary Care Provider [phone] Angel Crowe DPCiara Unavailable [phone] Mora Fritz Unavailable Unavailable Ok Jorge MD Unavailable Orlin Urbina APRN, RUMPER Unavailable [phone] Reason for Visit * Reason Comments Medication Refill Encounter Details Date Type Department Care Team (Late st Contact Info) Description 06/03/2022 Refill [facility] - [place] #[address] [place] [address] Oswaldo Serrano MD #[address] [address] Medication Refill Social History Tobacco Use Types [...] st Contact Info) Description 11/18/2025 2:30 PM FIELD COLLECTOR Office Visit [facility] - [facility] #[address] [place] [address] Oswaldo Serrano MD #2 [facility] [address] [place] [address] documented as of this encounter Visit Diagnoses Not on filedocumented in this encounter Additional Health Concerns Assessment Noted Time PHQ-9 Depression Total Score: 2 07/18/20 20 4:26 PM CDT documented as of this encounter Care Teams Director Of Cardiac Rehabilitation Relationship Specialty Start Date End Date Oswaldo Serrano MD #2 [facility] [address] [place] [address] PCP - General Family Medicine 05/19/17 Angel Crowe DPM #2 [facility] [address] [place] [address] Consulting Physician Podiatry 06/16/17 Mora Fritz [place] Behavioral Health Navigator 06/15/18 Ok Jorge MD #[address] [address] Consulting Physician Endocrinology 05/12/22 Orlin Urbina APRN, RUMPER #2 [place] [address] Nurse Practitioner Advanced Practice Nurse 11/09/22 documented as of this encounter
--- OUTSIDE RECORDS SUMMARY | 2025-08-16 12:32 | XMS_ITS | Encounter Summary ---
Author Organization [facility] Address [address] [place] [address] Phone Care Team Providers Care Shellfish Manager Name Role Phone Oswaldo Serrano MD Primary Care Provider [phone] Angel Crowe DPCiara Unavailable [phone] Mora Fritz Unavailable Unavailable Ok Jorge MD Unavailable Orlin Urbina APRN, SERVICE WRITER Unavailable [phone] Reason for Visit * Reason Comments Medication Refill Encounter Details Date Type Department Care Team (Late st Contact Info) Description 08/11/2022 Refill [facility] - [place] #[address] [place] [address] Oswaldo Serrano MD #[address] [address] Medication Refill Social History Tobacco [...] Dept 05/25/22 Office Visit Tom Quach MD [facility] Dhiraj 01/05/22 Office Visit Oswaldo Serrano MD [facility] 10/07/21 Office Visit Oswaldo Serrano MD [facility] Showing recent visits within past 365 days and meeting all other requirements Future Appointments No visits were found meeting these conditions. Showing future appointments within next 90 days and meeting all other requirements documented in this encounter Plan of Treatment Upcoming Encounters Date Type Department Care Team (Late st Contact Info) Description 11/18/2025 2:30 PM OIL BOILER Office Visit [facility] - Family Medicine - Dh[place] #[address] [place] [address] Oswaldo Serrano MD [address] [address] documented as of this encounter Visit Diagnoses Not on filedocumented in this encounter Additional Health Concerns Assessment Noted Time PHQ-9 Depression Total Score: 2 07/18/20 20 4:26 PM CDT documented as of this encounter Care Teams Shellfish Manager Relationship Specialty Start Date End Date Oswaldo Serrano MD #2 [facility] [address] [place] [address] PCP - General Family Medicine 05/19/17 Angel Crowe DPM #2 [facility] [address] [place] [address] Consulting Physician Podiatry 06/16/17 Mora Fritz [place] Behavioral Health Navigator 06/15/18 Ok Jorge MD #2 [facility] [address] [place] [address] Consulting Physician Endocrinology 05/12/22 Orlin Urbina APRN, SERVICE WRITER #2 [place] [address] Nurse Practitioner Advanced Practice Nurse 11/09/22 documented as of this encounter
--- OUTSIDE RECORDS SUMMARY | 2025-08-16 12:32 | XMS_ITS | Patient Health Record ---
Author Organization [facility] Address [address] [facility] [address] [place], [place] [address] Care Team Providers Care Back Closer Name Role Phone JEREMÍAS ASHTON Primary Care Provider Allergies Allergen (clinical drug ingredient) Drug/Non Drug Allergy documented on EMR Reaction Allergy Type Onset Date Status Substance with sulfonamide structure and antibacterial mechanism of action (substance) Sulfa Antibiotics Unknown Drug Allergy Active Reason For Referral No Information Medications Medication [...] phone, visiting friends or family, going to cheondoism or club meetings) I choose not to answer this question How stressed are you? Stress is when someone feels tense, nervous, anxious, or can't sleep at night because their mind is troubled I choose not to answer this question In the past year have you sp ent more than 2 nights in a row in a longterm, [place] [facility] [place], [facility] center, or juvenile correctional facility? I [...] Notes Problem Inappropriate diet and eating habits (2492106888807) Inappropriate diet and eating habits (Z72.4) 01/31/20 25 Active confirmed Problem Obese class III (finding) (311345494) Obesity, class 3 (E66.813) 01/31/20 Active confirmed Problem Chronic systolic heart failure (984120412) Chronic systolic congestive heart failure (I50.22) Active confirmed Vital Signs Heart Rate 94 /min 01/30/2025 Temperature 98.0 degrees Fahrenheit 01/30/2025 Respiratory Rate 20 /min 01/30/2025 Blood pressure diastolic 77 mm Hg 01/30/2025 Oximetry 94 % 01/30/2025 Height-cm 165.1 cm 01/30/2025 Weight-kg 130.18 kg 01/30/2025 Height 65 in 01/30/2025 Blood pressure systolic 109 mm Hg 01/30/2025 Weight 287.0 lbs 01/30/2025 BMI 47.75 kg/m2 01/30/2025 Encounters Encounter Location Date Provider Diagnosis [address] [id number] 09/17/2024 [facility] Acute bacterial endocarditis I33.0 and 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 09/17/2024 Infection of implantable cardioverter-defi brillator (ICD) generator, initial encounter (ICD-10 - T82.7XXA) As above. She will follow up with the stack clerk. 01/30/2025 Acute bacterial endocarditis (ICD-10 - I33.0) A long discussion is had with the patient and her sister about the importance of restarting the antibiotics at the correct dosing and she is given refills. This will be lifelong therapy as she is no longer a candidate for PPM change or valvular surgery. She will follow up with the stack clerk as she has severe CHF, valvular dysfunction, and is volume overloaded. Given her inability to comply with medications, a CPAP, weight loss, low sodium diet, and is no longer a surgical candidate, she is encouraged to talk with the stack clerk about the possiblity for hospice care. In [...] habits (ICD-10 - Z72.4) Plan Of Treatment No Information Insurance Providers Payer Name Payer Address Payer Phone Subscriber Number Group Number Insured Name Patient Relationship to Insured Coverage Start Date Coverage End Date [employer] [address] [place] [address] [phone] [id number] Loretta Moses am Self - patient is the insured [address] [place], [place] [address]t of Public Aid [address] [address] [place], [place] [id number] Loretta Moses am Self - patient is [...]
--- OUTSIDE RECORDS SUMMARY | 2025-08-16 12:32 | XMS_ITS | Encounter Summary ---
Author Organization [facility] Address [address] [place] [address] Phone Care Team Providers Care Manager Advertising Name Role Phone Oswaldo Serrano MD Primary Care Provider [phone] Angel Crowe DPM Unavailable [phone] Mora Fritz Unavailable Unavailable Ok Jorge MD Unavailable Orlin Urbina APRN, FIRESTOPPER TECHNICIAN Unavailable [phone] Reason for Visit * Reason Comments Medication Refill Encounter Details Date Type Department Care Team (Late st Contact Info) Description 10/28/2021 Refill [facility] #[address] [place] [address] Edwar Romo MD #[address] [address] Medication Refill Social History Tobacco Use Types [...] COVID-19? No / Unsure 10/27/2021 3:19 PM SKIVER COUNTER documented as of this encounter Plan of Treatment Upcoming Encounters Date Type Department Care Team (Late st Contact Info) Description 11/18/2025 2:30 PM SKIVER COUNTER Office Visit [facility] - Family Medicine [facility] #[address] [place] [address] Oswaldo Serrano MD #[address] [address] documented as of this encounter Visit Diagnoses Diagnosis Nocturnal enuresis documented in this encounter Additional Health Concerns Assessment Noted Time PHQ-9 Depression Total Score: 2 07/18/20 20 4:26 PM CDT documented as of this encounter Care Teams Manager Advertising Relationship Specialty Start Date End Date Oswaldo Serrano MD #[address] [address] PCP - General Family Medicine 05/19/17 Angel Crowe DPM #[address] [address] Consulting Physician Podiatry 06/16/17 Mora Fritz Behavioral Health Navigator 06/15/18 Ok Jorge MD [facility] [address] [phone] Consulting Physician Endocrinology 05/12/22 Orlin Urbina APRN, YUDI #2 [place] [address] Nurse Practitioner Advanced Practice Nurse 11/09/22 documented as of this encounter
--- OUTSIDE RECORDS SUMMARY | 2025-08-16 12:32 | XMS_ITS | Clinical Summary ---
Author Organization [facility] Address [address] [place] [address] Phone Care Team Providers Care Sales Product Manager Name Role Phone Oswaldo Serrano MD Primary Care Provider [phone] Angel Crowe DPM Unavailable [phone] Mora Fritz Unavailable Unavailable Ok Jorge MD Unavailable Orlin Urbina APRN, BINDING PRINTER Unavailable [phone] Allergies Active Allergy Reactions Criticality Noted Date [...] 12/03/19 22 Active Cyanocobalamin (B-12) 500 MCG TabletIndications:Vi tamin B12 Deficiency Take 1 Tablet by mouth daily. 90 Tablet 3 11/14/19 23 Active Blood Glucose Monitoring Suppl Device Test blood glucose 1x daily, E11.9, insulin dependent 1 Each 12/31/19 23 Active Lancets Mis 1 Lancet by Does not apply route daily. Test blood glucose 1x daily. E11.9, insulin dependent 100 Lancet 3 12/31/19 23 Active fluticasone (FLONASE) 50 MCG/ACT SuspensionIndication s:Nasal Congestion 1-2 Sprays by Nasal route daily. [...] Active albuterol 108 (90 Base) MCG/ACT Aerosol SolutionIndications: Exacerbation of Chronic Obstructive Pulmonary Disease INHALE 1 TO 2 PUFFS BY MOUTH EVERY 4 HOURS NEEDED FOR COUGH 18 g 08/05/20 24 Active omeprazole (PriLOSEC) 20 MG CAPSULE DELAYED RELEASEIndications:S ymptomatic Gastroesophageal Reflux Disease (Inactive) TAKE 1 CAPSULE BY MOUTH DAILY 90 Capsule 1 08/07/20 24 Active metoprolol Succinate (TOPROL-XL) 100 MG TABLET SR 24 HRIndications:Atrial Fibrillation,Heart Failure,Hypertension Take 100 mg by mouth daily. Indications: Atrial Fibrillation, Cardiac Failure, High Blood Pressure Active levothyroxine (SYNTHROID) 75 MCG TabletIndications:Hy pothyroidism TAKE 1 TABLET BY MOUTH EVERY MORNING 90 Tablet 3 09/23/20 24 Active spironolactone (ALDACTONE) 25 MG TabletIndications:Hy pertension,HF TAKE 1/2 TABLET BY MOUTH DAILY 45 Tablet 1 10/09/20 24 Active cefadroxil (DURICEF) 500 MG Capsule Take 1,000 mg by mouth 2 times daily. 10/29/19 25 Active ferrous sulfate 325 (65 Fe) MG TabletIndications:Ir on Deficiency Take 325 mg by mouth daily. Indications: Iron Deficiency 10/29/19 Active Lidocaine 4 % Patch 1 Patch [...] mL 1 03/25/20 25 Active Continuous Glucose Recreation Leader (Dexcom G7 Recreation Leader) Device 1 Each by Does not apply route 4 times daily. Use to check glucose 4x daily. 1 Each 04/19/20 Active busPIRone (BUSPAR) 10 MG Tablet Take 1 Tablet by mouth 2 times daily. 60 Tablet 05/03/20 25 Active docusate sodium (COLACE) 100 MG CapsuleIndications:C onstipation TAKE 1 CAPSULE BY MOUTH TWICE DAILY 60 Capsule 2 05/16/20 Active apixaban (ELIQUIS) 5 MG TabletIndications:Hi story of Thromboembolic Disease Take 1 Tablet by mouth 2 times daily. Indications: History of Disease involving a Thrombosis or an Embolism 180 Tablet 3 07/11/20 25 Active sacubitril-valsartan (ENTRESTO) 24-26 MG Tablet Take 1 Tablet by mouth 2 times daily. 180 Tablet 07/11/20 25 Active Cholecalciferol 125 MCG (5000 UT) Tablet Take 1 Tablet by mouth daily. Active ascorbic acid (ASCORBIC ACID) 500 MG Tablet Take 500 mg by mouth daily. 05/02/20 Active empagliflozin (JARDIANCE) 10 MG Tablet Take 10 mg by mouth daily. 06/05/20 Active triamcinolone (KENALOG) 0.1 % CreamIndications:John h Application Site: apply twice a day to left arm for 7-10 days (Description and Location) 15 g 07/17/20 Active Active Problems Problem Noted Date Diagnosed [...] Type Department Care Team Description 07/19/2025 Telephone [facility] [address] [place] [address] Oswaldo Serrano MD Advice Only 07/17/2025 2:45 PM CDT Office Visit [facility] - [place] [address] [place] [address] Oswaldo Serrano MD History of atrial fibrillation (Primary Dx); Type 2 diabetes mellitus treated with insulin; Encounter for screening mammogram for breast cancer; Diabetic eye exam; Rash; Urinary frequency; Elevated LFTs; Anemia, normocytic normochromic Discharge Disposition: Discharged to home or Selfcare 07/17/2025 [facility]phone [facility] [place] [address] [place] [address] Oswaldo Serrano MD 07/17/2025 Travel 07/11/2025 [facility]phone [facility] [place] [address] [place] [address] Oswaldo Serrano MD 07/10/2025 [facility] [place] [address] [place] [address] Oswaldo Serrano MD Medication Refill 06/11/2025 Home Care Visit [address] [address] Merry Davey RN SN - DISCHARGE SUMMARY 05/20/2025 Home Care Visit [address] [address] Merry Davey RN SN - OASIS TRANSFER W/OUT DC 05/16/2025 Refill [facility] [place] [address] [place] [address] Oswaldo Serrano MD Medication Refill 05/16/2025 Results [facility]-Up [facility] [place] [address] [place] [address] Oswaldo Serrano MD URINALYSIS REFLEX IF INDICATED BY ABNORMAL RESULTS from Last 3 Months Immunizations Immunization Administration Dates Next Due Covid-19, Mrna, Lnp-s, Pf, 3 0 Mcg/0.3 Ml Dose (Pfizer) 01/18/2021,12/23/2020 Influenza Vaccine 07/02/2014 Influenza Vaccine, Quadrivalent, PF 08/10,07/18/2020,06/22/2019,08/19,07/17/2015,07/02/2014 Pneumococcal conjugate PCV20 , polysaccharide [id number] conjugate, adjuvant, PF 08/26/2022 TDAP Vaccine 06/10/2024 Family History Medical History Relation Name Comments Diabetes Father Corbin Heart Attack Father Corbin Heart Disease Father Corbin Hypertension Father Corbin Cancer Maternal Grandfather Somar Cancer Maternal Grandmother Laura Diabetes Mother Abiola [...] drink = 0.6 oz pur e alcohol) [facility] Utilities Answer Date Recorded In the past 12 months has [employer], gas, oil, or water [employer] Response threatened to shut off services in your [...] week 11/29/2024 How often do you attend [facility] or jewish services? Never 11/29/2024 Do you [...] Total Score - Questions 1-9 2 10/11 [facility] - [...] any time in the past 12 m [facility], were you homeless or [...] st Contact Info) Description 11/18/2025 2:30 PM BRUSH SANDER Office Visit [facility] [address] [place] [address] Oswaldo Serrano MD [address] [address] Health Maintenance Due Date Last Done Comments Diabetes: Foot Exam 1961 HPV/Cotest 12/20/1991 Colonoscopy 2006 Immunochemical Fecal Occult Blood 2006 Medicare Initial AWV [id number] 06/09/2010 Respiratory Syncytial Virus (RSV) Immunization (Adult) (1 - Risk 50-74 years 1-dose series) 12/20/2011 Zoster Immunization (1 of 2) 12/20/2011 Hepatitis B Immunization (1 of 3 - Risk 3-dose series) 2021 Diabetes: Eye Exam 02/24/2024 02/23/2023, 0 02/23/2023, 10/16/2021, Additional history exists Mammogram 12/01/2024 12/01/2023, 11/10, 10/27/2021, Additional history exists Influenza Immunization (#1) 06/10/202508/10, 07/18/2020, 06/22/2019, Additional history exists SARS-COV-2 Immunization ( season) 2025 01/18/2021, 12/23/2020 Cologuard 09/23/2025 09/23/2022 Colorectal Cancer Screening 09/23/2025 Cervical Cancer Screening (CCS) 11/09/2025 Pap Smear 11/09/2025 11/09/2022, 06/06/2017 Diabetes: Hemoglobin A1c 02/01/2026 025, 05/16/2025, 02/23/2025, Additional history exists Diabetes: Nephropathy Screening 03/26/2026 [...] Procedure Name Priority Date/Time Associated Diagnosis Comments EKG SCAN 08/03/2025 12:00 AM CDT EKG SCAN 08/03/2025 12:00 AM CDT COMPLETE BLOOD COUNT (CBC) WITH DIFF Routine 08/03/2025 12:00 AM CDT Anemia, normocytic normochromic XR - CHEST 08/03/2025 12:00 AM CDT XR - CHEST 07/27/2025 12:00 AM CDT NEPHROLOGY CONSULT 07/21/2025 12 :00 AM CDT CARDIOLOGY CONSULT 07/21/2025 12 :[address] - HEAD/NECK 06/08/2025 12:00 AM CDT CMP (COMPREHENSIVE METABOLIC PANEL) Routine 03/26/2025 12:00 AM CDT Elevated LFTs POCT GLYCOSYLATED HEMOGLOBIN Routine 01/04/2024 3:30 PM CDT Type 2 diabetes mellitus treated with insulin (HCC) SHABANA DIAG BILATERAL DIGITAL W CAD Routine 12/01/2023 3:15 PM BRUSH SANDER Abnormal mammogram HM DILATED EYE EXAM 02/23/2023 1 2:00 AM CDT PATHOLOGY CYTOLOGY WATCH ASSEMBLER Routine 11/09/2022 3:06 PM BRUSH SANDER Encounter for well woman exam with routine gynecological exam COLOGUARD Routine 09/23/2022 4:00 PM BRUSH SANDER Screening for colon cancer from Last 3 Months or Most Recently Relevant to Health Maintenance Results * EKG SCAN (08/03/2025 12:00 AM CDT) Only the most recent of2 resultswithin the time period is included. 08/03/2025 us Provider Scan IMG ECG ORDERABLES Final Result Performing Organization Address City/[facility]/ZIP Co de Phone Number RESULTING AGENCY * XR - CHEST (08/03/2025 12:00 AM CDT) Only the most recent of2 resultswithin the time period is included. 08/03/2025 us Provider Scan IMG DIAGNOSTIC ORDERABLES Final Result Performing Organization Address City/[facility]/ZIP Co de Phone Number SCAN * COMPLETE BLOOD COUNT (CBC) WITH DIFF (08/03/2025 12:00 AM CDT) Blood Result [facility] Oswaldo Serrano MD HEMATOLOGY ORDERABLES Fin al Result Performing Organization Address [facility] de Phone Number SCAN * NEPHROLOGY CONSULT (07/21/2025 12:00 AM CDT) 07/21/2025 Provider Scan GENERIC SCAN ORDERS CONSULT Ayanna l Result Performing Organization Address [facility] de Phone Number SCAN * CARDIOLOGY CONSULT (07/21/2025 12:00 AM CDT) 07/21/2025 Provider Scan GENERIC SCAN ORDERS CONSULT Ayanna l Result Performing Organization Address [facility] de Phone Number SCAN * CT - HEAD/NECK (06/08/2025 12:00 AM CDT) 06/08/[address] ORDERABLES Final Result Performing Organization Address [facility] de Phone Number SCAN * CMP (COMPREHENSIVE METABOLIC PANEL) (03/26/2025 12:00 AM CDT) Blood Result [facility] Oswaldo Serrano MD CHEMISTRY ORDERABLES Ayanna l Result Performing Organization Address [facility] de Phone Number SCAN * (ABNORMAL) POCT GLYCOSYLATED HEMOGLOBIN (01/04/2024 3:30 PM CDT) HGB-A1C 8.9(A) 4 - 6 % Blood 01/04/2024 3:30 PM CDT Result [facility] Ok Jorge MD POINT OF CARE TESTING (MANUAL) F inal Result * SHABANA DIAG BILATERAL DIGITAL W CAD (12/01/2023 3:15 PM BRUSH SANDER) Anatomical Region Laterality Modality breast Bilateral Mammography 12/01/2023 2:48 PM BRUSH SANDER Narrative 12/02/2023 1:16 PM BRUSH SANDER - SHABANA DIAG BILATERAL DIGITAL W CAD [...] dated: 11/25/2022, 09/14/2022, 01/29/2022, 10/27/2021, and 10/17/2018 [facility]. BREAST TISSUE:There are scattered fibroglandular [...] signed by: Arsalan Bocanegra M.D. ll/:12/01/2023 15:11:27 Frame Stripper(s): RT Lauri(R)(M), [facility] letter sent: Normal Exam Reading location: [facility] BI-RADS: 2 Benign Procedure Note Arsalan Bocanegra MD - 12/02/2023 - [facility] DIAG BILATERAL DIGITAL W CAD BILATERAL DIGITAL [...] dated: 11/25/2022, 09/14/2022, 01/29/2022, 10/27/2021, and 10/17/2018 [facility]. BREAST TISSUE:There are scattered fibroglandular [...] signed by: Arsalan Bocanegra M.D. ll/:12/01/2023 15:11:27 Frame Stripper(s): RT Lauri(R)(M), [facility] letter sent: Normal Exam Reading location: [facility] BI-RADS: 2 Benign Oswaldo Serrano MD IMG MAMMO ORDERABLES Ayanna l Result * HM DILATED EYE EXAM (02/23/2023 12:00 AM CDT) 02/23/2023 us Provider Scan PROCEDURE/MINOR SURGICAL ORDERAB LES Final Result SCAN * PATHOLOGY CYTOLOGY WATCH ASSEMBLER (11/09/2022 3:06 PM BRUSH SANDER) SPECIMEN ADEQUACY Satisfactory for evaluation. Endocervical/transf ormation zone component is absent. 11/18/2022 10:47 AM BRUSH SANDER [facility] DESCRIPTIVE DIAGNOSIS NEGATIVE FOR INTRAEPITHELIAL LESIONS OR MALIGNANCY. 11/18/2022 10:47 AM BRUSH SANDER [facility] at 1047 BRUSH SANDER HPV Reflex if ASCUS? Yes 11/18/2022 10:47 AM BRUSH SANDER [facility] Automated Examination Analysis of this sample has been assisted by an automated imaging and review system ([employer], [employer], [place], [place]). This case is further evaluated and finalized by a toe closing machine tender and/or pathologist. 11/18/2022 10:47 AM BRUSH SANDER [facility] Disclaimer The PAP smear is [...] 65 unless clinically indicated. 11/18/2022 10:47 AM BRUSH SANDER [facility] Other CERVIX UTERI STRUCTURE / Unknown Non-Phlebotomy Collection / Unknown 11/09/2022 3:06 PM BRUSH SANDER 11/09/2022 3:06 PM BRUSH SANDER us Jamison Hernández MD PATHOLOGY/CYTOLOGY ORDERABLES Final Result [facility] [address] [place] [address], [place] * COLOGUARD (09/23/2022 4:00 PM BRUSH SANDER) Cologuard Negative Negative [facility] Comment: NEGATIVE TEST RESULT. [...] (Deandra Lane al, N Engl J Med 2014;370(14):6001-6216) The normal value (reference range) for this assay is negative. COLOGUARD RE-SCREENING RECOMMENDATION: Periodic colorectal cancer screening is an important part of preventive healthcare for asymptomatic individuals at average risk for colorectal cancer. Following a negative Cologuard result, the [place] Cancer Society and U.S. Multi-Society Task Force screening guidelines recommend a Cologuard re-screening interval of 3 years. References: [place] [employer] Society Guideline for Colorectal Cancer Screening: https://www.cancer.org/cancer/enhur-gutnha-zkkadl/zuphyqafj-dupoqjrlg-yplfkvx/ acs-recommendations.html.; Chavez DK, Rob CR, Elroy TorresK, Colorectal Cancer Screening: Recommendations for Physicians and Patients from the U.S. Multi-Society Task Force on Colorectal Cancer Screening , Am J Gastroenterology 2017; 112:8730-4139. TEST DESCRIPTION: Composite algorithmic analysis of stool [...] (Deandra Lane al, N Engl J Med 2014;370(14):2426-4944.) Cologuard may produce a false negative or false positive result (no colorectal cancer or precancerous polyp present at colonoscopy follow up). A negative Cologuard test result does not guarantee the absence of CRC or advanced adenoma (pre-cancer). The current Cologuard screening interval is every 3 years. ([place] Cancer Society and U.S. Multi-Society Task Force). Cologuard performance data in a 10,000 patient pivotal study using colonoscopy as the reference method can be accessed at the following location: www.[employer]/results. Additional description of the Cologuard test process, warnings and precautions can be found at www.[employer].com. Stool 09/23/2022 4:00 PM BRUSH SANDER 09/25/2022 10:38 AM BRUSH SANDER Connor Yuan APRN, BINDING PRINTER BODY FLUIDS & ST OOLS ORDERABLES Final Result [employer] [place] [address] [place] [address], [employer] [address] [address] from Last 3 Months or Most Recently Relevant to Health Maintenance Insurance MEDICAID [place] MEDICARE Advance Directives Documents on File Type Date Recorded Patient Zoning Technician Expl anation Power of Instructional Facilitator for Health Care 05/10/2018 9:03 AM * [...] 11:54 AM 03/29/2020 10:53 PM Care Teams Sales Product Manager Relationship Specialty Start Date End Date Oswaldo Serrano MD #[address] [address] PCP - General Family Medicine 05/19/17 Angel Crowe DPM #[address] [address] Consulting Physician Podiatry 06/16/17 Mora Fritz [place] Behavioral Health Navigator 06/15/18 Ok Jorge MD #[address] [address] Consulting Physician Endocrinology 05/12/22 Orlin Urbina APRN, BINDING PRINTER [address] [place] [address] Nurse Practitioner Advanced Practice Nurse 11/09/22
--- OUTSIDE RECORDS SUMMARY | 2025-08-16 12:32 | XMS_ITS | Encounter Summary ---
Author Organization [facility] Address [address] [place] [address] Phone Care Team Providers Care Vacuum Frame Operator Name Role Phone Oswaldo Serrano MD Primary Care Provider [phone] Angel Crowe DPCiara Unavailable [phone] Mora Fritz Unavailable Unavailable Ok Jorge MD Unavailable Orlin Urbina APRN, NAVAL GUNFIRE LIAISON OFFICER Unavailable [phone] Reason for Visit * Reason Comments Medication Refill Encounter Details Date Type Department Care Team (Late st Contact Info) Description 02/17/2022 [facility]ill [facility] [place] [address] [place] [address] Oswaldo Serrano MD #[address] [address] Medication Refill Social History Tobacco Use Types [...] st Contact Info) Description 11/18/2025 2:30 PM FIXED ASSETS ACCOUNTANT Office Visit [facility] [address] [place] [address] Oswaldo Serrano MD [address] [facility] [address] [place] [address] documented as of this encounter Visit Diagnoses Not on filedocumented in this encounter Additional Health Concerns Assessment Noted Time PHQ-9 Depression Total Score: 2 07/18/20 20 4:26 PM CDT documented as of this encounter Care Teams Vacuum Frame Operator Relationship Specialty Start Date End Date Oswaldo Serrano MD [address] [address] PCP - General Family Medicine 05/19/17 Angel Crowe DPM [address] [facility] [address] [place] [address] Consulting Physician Podiatry 06/16/17 Mora Fritz Behavioral Health Navigator 06/15/18 Ok Jorge MD [address] [facility] [address] [place] [address] Consulting Physician Endocrinology 05/12/22 Orlin Urbina APRN, NAVAL GUNFIRE LIAISON OFFICER [address] [place] [address] Nurse Practitioner Advanced Practice Nurse 11/09/22 documented as of this encounter
--- OUTSIDE RECORDS SUMMARY | 2025-08-16 12:32 | XMS_ITS | Encounter Summary ---
Author Organization [facility] Address [address] [place] [address] Phone Care Team Providers Care Field Map Editor Name Role Phone Oswaldo Serrano MD Primary Care Provider [phone] Angel Crowe DPCiara Unavailable [phone] Mora Fritz Unavailable Unavailable Ok Jorge MD Unavailable Orlin Urbina APRN, SIGNALS ANALYST Unavailable [phone] Reason for Visit * Reason Comments Medication Refill Encounter Details Date Type Department Care Team (Late st Contact Info) Description 09/11/2021 Refill [facility] [place] [address] [place] [address] Oswaldo Serrano MD #[address] [address] Medication Refill Social History Tobacco Use Types [...] ago Acute bronchitis, unspecified organism [facility] - Connor Hutchinson APRN, YUDI 6 months ago Urinary frequency [facility] - Oswaldo Moreno MD 6 months ago B12 deficiency [facility] - Oswaldo Moreno MD 8 months ago [facility]TI [facility] Connor Alberts APRN, YUDI Upcoming Appointments Future Appointments In 3 weeks Oswaldo Serrano MD [facility] - Family Medicine - [place] In 1 month Ok Jorge MD [facility] - Endocrinology - [place] LINUX DEVOPS ENGINEER - Recent and Past Visits Recent Visits Date Type Provider Dept 07/28/21 Telemedicine Oswlado Serrano MD [facility] [place] 05/14/21 Office Visit Connor Yuan APRN, YUDI [facility] [place] 02/27/21 Office Visit Oswaldo Serrano, MD [place] 02/16/21 Office Visit Oswaldo Serrano, MD [place] 01/14/21 Office Visit Connor Yuan APRN, YUDI [facility] [place] 12/19/20 Office Visit Oswaldo Serrano MD [facility] [place] 12/18/20 Telemedicine Oswaldo Serrano, MD [place] 12/08/20 Telemedicine Oswaldo Serrano MD [facility] [place] 11/07/20 Telemedicine Connor Yuan APRN, YUDI [facility] [place] 10/09/20 Office Visit [facility]do Serr[facility] MD [facility] [...] with SSRI for at least 6 months N CHECKER documented in this encounter Plan of Treatment Upcoming Encounters Date Type Department Care Team (Late st Contact Info) Description 11/18/2025 2:30 PM LINEN CHECKER Office Visit [facility] - Family [facility] [address] [place] [address] Oswaldo Serrano MD #[address] [place] [address] documented as of this encounter Visit Diagnoses Not on filedocumented in this encounter Additional Health Concerns Assessment Noted Time PHQ-9 Depression Total Score: 2 07/18/20 20 4:26 PM CDT documented as of this encounter Care Teams Field Map Editor Relationship Specialty Start Date End Date Oswaldo Serrano MD #[address] [address] PCP - General Family Medicine 05/19/17 Angel Crowe DPM #2 [facility] [address] [place] [address] Consulting Physician Podiatry 06/16/17 Mora Fritz [place] Behavioral Health Navigator 06/15/18 Ok Jorge MD #[address] [place] [address] Consulting Physician Endocrinology 05/12/22 Orlin Urbina APRN, SIGNALS ANALYST [address] [place] [address] Nurse Practitioner Advanced Practice Nurse 11/09/22 documented as of this encounter
--- OUTSIDE RECORDS SUMMARY | 2025-08-16 12:33 | XMS_ITS | Encounter Summary ---
Author Organization [facility] Address [address] [place] [address] Phone Care Team Providers Care Field Control Inspector Name Role Phone Oswaldo Serrano MD Primary Care Provider [phone] Angel Crowe DPCiara Unavailable [phone] Mora Fritz Unavailable Unavailable Ok Jorge MD Unavailable Orlin Urbina APRN, LEATHER NOVEL[employer] PARTS CUTTER Unavailable [phone] Reason for Visit * Reason Comments Medication Refill Encounter Details Date Type Department Care Team (Late st Contact Info) Description 07/15/2023 Refill [facility] - [place] [address] [place] [address] Oswaldo Serrano MD #[address] [address] Medication Refill Social History Tobacco Use Types [...] 08/26/22 Office Visit Connor Yuan APRN, YUDI [facility] Showing recent visits within past 365 [...] st Contact Info) Description 11/18/2025 2:30 PM DREDGE RUNNER Office Visit [facility] [address] [place] [address] Oswaldo Serrano MD #[address] [address] documented as of this encounter Visit Diagnoses Diagnosis Chronic congestive heart failure, unspecified heart failure type documented in this encounter Additional Health Concerns Assessment Noted Time PHQ-9 Depression Total Score: 0 10/14/19 23 11:00 AM DREDGE RUNNER documented as of this encounter Care Teams Field Control Inspector Relationship Specialty Start Date End Date Oswaldo Serrano MD #[address] [address] PCP - General Family Medicine 05/19/17 Angel Crowe DPM #[address] [address] Consulting Physician Podiatry 06/16/17 Mora Fritz Behavioral Health Navigator 06/15/18 Ok Jorge MD #2 [facility] [address] [place] [address] Consulting Physician Endocrinology 05/12/22 Orlin Urbina APRN, LEATHER NOVELTY PARTS CUTTER [address] [place] [address] Nurse Practitioner Advanced Practice Nurse 11/09/22 documented as of this encounter
--- OUTSIDE RECORDS SUMMARY | 2025-08-16 12:33 | XMS_ITS | Encounter Summary ---
Author Organization [facility] Address [address] [place] [address] Phone Care Team Providers Care Personal Care Worker Name Role Phone Oswaldo Serrano MD Primary Care Provider [phone] Angel Crowe DPM Unavailable [phone] Mora Fritz Unavailable Unavailable Ok Jorge MD Unavailable Orlin Urbina APRN, DISTRIBUTION TRANSFORMER ASSEMBLER Unavailable [phone] Reason for Visit * Reason Comments Medication Refill Encounter Details Date Type Department Care Team (Late st Contact Info) Description 12/02/2020 Refill [facility] - [place] [address] [place] [address] Connor Yuan APRN, DISTRIBUTION TRANSFORMER ASSEMBLER #[address] [address] Medication Refill Social History Tobacco Use Types [...] COVID-19? No / Unsure 11/28/2020 2:56 PM SPEECH THERAPY ASSISTANT documented as of this encounter Miscellaneous Notes * Telephone Encounter - Connie Gamez RN - 12/02/2020 11:24 AM CST Refused as patient needs lab work done. Connie RN CH THERAPY ASSISTANT documented in this encounter Plan of Treatment Upcoming Encounters Date Type Department Care Team (Late st Contact Info) Description 11/18/2025 2:30 PM SPEECH THERAPY ASSISTANT Office Visit [facility] - [facility] Medicine [facility] [address] [place] [address] Oswaldo Serrano MD #[address] [address] documented as of this encounter Visit Diagnoses Diagnosis Vitamin D deficiency Unspecified vitamin D deficiency documented in this encounter Additional Health Concerns Infection Onset Date Last Indicated Resolved Time COVID - 19 07/28/2021 07/29/2021 08/17/2021 12:1 6 AM SPEECH THERAPY ASSISTANT Assessment Noted Time PHQ-9 Depression Total Score: 2 07/18/20 4:26 PM CDT documented as of this encounter Care Teams Personal Care Worker Relationship Specialty Start Date End Date Oswaldo Serrano MD #[address] [address] PCP - General Family Medicine 05/19/17 Angel Crowe DPM #2 [facility] [address] [place] [address] Consulting Physician Podiatry 06/16/17 Mora Fritz ND Behavioral Health Navigator 06/15/18 Ok Jorge MD #[address] [id number] Consulting Physician Endocrinology 05/12/22 Orlin Urbina APRN, DISTRIBUTION TRANSFORMER ASSEMBLER #[address] [place] [address] Nurse Practitioner Advanced Practice Nurse 11/09/22 documented as of this encounter
--- OUTSIDE RECORDS SUMMARY | 2025-08-16 12:33 | XMS_ITS | Encounter Summary ---
Author Organization [facility] Address [address] [place] [address] Phone Care Team Providers Care Rail Car Painter/Sandblaster Name Role Phone Oswaldo Serrano MD Primary Care Provider [phone] Angel Crowe DPM Unavailable [phone] Mora Fritz Unavailable Unavailable Ok Jorge MD Unavailable Orlin Urbina APRN, POTABLE WATER TREATMENT OPERATOR Unavailable [phone] Reason for Visit * Reason Comments Medication Refill Encounter Details Date Type Department Care Team (Late st Contact Info) Description 10/10/2023 Refill [facility] - [place] [address] [place] [address] Ok Jorge MD #[address] [address] Medication Refill Social History Tobacco [...] Telephone Encounter - Ynes Zuniga RN - 10/11/2023 9:03 AM POLICE DETENTION ATTENDANT Requested Prescriptions Pending Prescriptions Disp Refills ??? Insulin Pen Needle (BD Pen Needle Trina 2nd Gen) 32G X 4 MM Misc [Pharmacy Med Name: B-D TRINA 2ND GEN PEN NDL [id number]] 400 Each Sig: USE TO INJECT FOUR TIMES DAILY Next appt: 12/13/2023 CE DETENTION ATTENDANT documented in this encounter Plan of Treatment Upcoming Encounters Date Type Department Care Team (Late st Contact Info) Description 11/18/2025 2:30 PM POLICE DETENTION ATTENDANT Office Visit [facility] - Family Medicine [facility] #[address] [place] [address] Oswaldo Serrano MD #[address] [address] documented as of this encounter Visit Diagnoses Not on filedocumented in this encounter Additional Health Concerns Assessment Noted Time PHQ-9 Depression Total Score: 0 08/09/20 23 2:56 PM CDT documented as of this encounter Care Teams Rail Car Painter/Sandblaster Relationship Specialty Start Date End Date Oswaldo Serrano MD #[address] [address] PCP - General Family Medicine 8/10/17 Angel Crowe DPM #2 [facility] [address] [place] [address] Consulting Physician Podiatry 06/16/17 Mora Fritz Behavioral Health Navigator 06/15/18 Ok Jorge MD #2 [facility] [address] [place] [phone] Consulting Physician Endocrinology 05/12/22 Orlin Urbina, WOMEN'S SOCCER COACH, POTABLE WATER TREATMENT OPERATOR [address] [place] [address] Nurse Practitioner Advanced Practice Nurse 11/09/22 documented as of this encounter
--- OUTSIDE RECORDS SUMMARY | 2025-08-16 12:33 | XMS_ITS | Encounter Summary ---
Author Organization [facility] Address [address] [place] [address] Phone Care Team Providers Care Track Repairer Helper Name Role Phone Oswaldo Serrano MD Primary Care Provider [phone] Angel Crowe DPM Unavailable [phone] Mora Fritz Unavailable Unavailable Ok Jorge MD Unavailable Orlin Urbina APRN, PATIENT INTAKE COORDINATOR Unavailable [phone] Reason for Visit * Reason Comments Medication Refill Encounter Details Date Type Department Care Team (Late st Contact Info) Description 11/27/2022 Refill [facility] #[address] [place] [address] Orlin Urbina APRN, PATIENT INTAKE COORDINATOR [address] [place] [address] Medication Refill Social History Tobacco Use Types [...] Coronavirus/COVID-19? No / Unsure 11/25/2022 12:13 PM NONPROFIT DIRECTOR documented as of this encounter Plan of Treatment Upcoming Encounters Date Type Department Care Team (Late st Contact Info) Description 11/18/2025 2:30 PM NONPROFIT DIRECTOR Office Visit [facility] - Family Medicine [facility] #[address] [place] [address] Oswaldo Serrano MD #[address] [address] documented as of this encounter Visit Diagnoses Not on filedocumented in this encounter Additional Health Concerns Assessment Noted Time PHQ-9 Depression Total Score: 0 10/14/19 23 11:00 AM NONPROFIT DIRECTOR documented as of this encounter Care Teams Track Repairer Helper Relationship Specialty Start Date End Date Oswaldo Serrano MD #[address] [address] PCP - General Family Medicine 05/19/17 Angel Crowe DPM #[address] [address] Consulting Physician Podiatry 06/16/17 Mora Fritz Behavioral Health Navigator 06/15/18 Ok Jorge MD #[address] [address] Consulting Physician Endocrinology 05/12/22 Orlin Urbina APRN, YUDI #[address] [place] [address] Nurse Practitioner Advanced Practice Nurse 11/09/22 documented as of this encounter
--- OUTSIDE RECORDS SUMMARY | 2025-08-16 12:33 | XMS_ITS | Encounter Summary ---
Author Organization [facility] Address [address] [place] [address] Phone Care Team Providers Care Spiral Runner Name Role Phone Oswaldo Serrano MD Primary Care Provider [phone] Angel Crowe DPM Unavailable [phone] Mora Fritz Unavailable Unavailable Ok Jorge MD Unavailable Orlin Urbina APRN, SCREEDMAN Unavailable [phone] Reason for Visit * Reason Comments Medication Refill Encounter Details Date Type Department Care Team (Late st Contact Info) Description 11/28/2020 Refill [facility] - Family Medicine - [place] [address] [place] [address] Connor Yuan APRN, SCREEDMAN #[address] [address] Medication Refill Social History Tobacco Use Types [...] COVID-19? No / Unsure 11/28/2020 2:56 PM LAB SCIENTIST documented as of this encounter Plan of Treatment Upcoming Encounters Date Type Department Care Team (Late st Contact Info) Description 11/18/2025 2:30 PM LAB SCIENTIST Office Visit [facility] - Family Medicine [facility] #[address] [place] [address] Oswaldo Serrano MD #[address] [address] documented as of this encounter Visit Diagnoses Diagnosis Vitamin D deficiency Unspecified vitamin D deficiency documented in this encounter Additional Health Concerns Infection Onset Date Last Indicated Resolved Time COVID - 19 07/28/2021 07/29/2021 08/17/2021 12:1 6 AM LAB SCIENTIST Assessment Noted Time PHQ-9 Depression Total Score: 2 07/18/20 4:26 PM CDT documented as of this encounter Care Teams Spiral Runner Relationship Specialty Start Date End Date Oswaldo Serrano MD #[address] [address] PCP - General Family Medicine 05/19/17 Angel Crowe DPM #[address] [address] Consulting Physician Podiatry 06/16/17 Mora Fritz [place] Behavioral Health Navigator 06/15/18 Ok Jorge MD #[address] [address] Consulting Physician Endocrinology 05/12/22 Orlin Urbina APRN, SCREEDMAN [address] [place] [address] Nurse Practitioner Advanced Practice Nurse 11/09/22 documented as of this encounter
--- OUTSIDE RECORDS SUMMARY | 2025-08-16 12:33 | XMS_ITS | Encounter Summary ---
Author Organization [facility] Address [address] [place] [address] Phone Care Team Providers Care Investment Trader Name Role Phone Oswaldo Serrano MD Primary Care Provider [phone] Angel Crowe DPCiara Unavailable [phone] Mora Fritz Unavailable Unavailable Ok Jorge MD Unavailable Orlin Urbina APRN, TERMITE CONTROL SERVICE 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 Unavailable [phone] Reason for Visit * Reason Comments Medication Refill Encounter Details Date Type Department Care Team (Late st Contact Info) Description 06/09/2023 Refill [facility] - Family Medicine - [place] [address] [place] [address] Oswaldo Serrano MD #[address] [address] Medication Refill Social History Tobacco Use Types [...] st Contact Info) Description 11/18/2025 2:30 PM LINGO CLEANER Office Visit [facility] - Family [facility] #[address] [place] [address] Oswaldo Serrano MD [address] [address] documented as of this encounter Visit Diagnoses Not on filedocumented in this encounter Additional Health Concerns Assessment Noted Time PHQ-9 Depression Total Score: 0 10/14/19 23 11:00 AM LINGO CLEANER documented as of this encounter Care Teams Investment Trader Relationship Specialty Start Date End Date Oswaldo Serrano MD [address] [address] PCP - General Family Medicine 05/19/17 Angel Crowe DPM #[address] [address] Consulting Physician Podiatry 06/16/17 Mora Fritz [place] Behavioral Health Navigator 06/15/18 Ok Jorge MD #[address] [address] Consulting Physician Endocrinology 05/12/22 Orlin Urbina CAFE HELPER, TERMITE CONTROL SERVICE 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 #[address] [place] [address] Nurse Practitioner Advanced Practice Nurse 11/09/22 documented as of this encounter
--- OUTSIDE RECORDS SUMMARY | 2025-08-16 12:33 | XMS_ITS | Encounter Summary ---
Author Organization [facility] Address [address] [place] [address] Phone Care Team Providers Care Medical Staff Specialist Name Role Phone Oswaldo Serrano MD Primary Care Provider [phone] Angel Crowe DPCiara Unavailable [phone] Mora Fritz Unavailable Unavailable Ok Jorge MD Unavailable Olrin Urbina APRN, PUBLIC EVENTS FACILITIES RENTAL MANAGER Unavailable [phone] Reason for Visit * Reason Comments Medication Refill Encounter Details Date Type Department Care Team (Late st Contact Info) Description 02/02/2024 Refill [facility] - Family Medicine - [place] #[address] [place] [address] Oswaldo Serrano MD #[address] [address] Medication Refill Social History Tobacco Use Types Packs/Day Years Used Date Smoking Tobacco: Never Smokeless Tobacco: Never Alcohol Use Standard Drinks/Week Comments No 0 (1 standard drink = 0.6 oz pur e alcohol) [facility] Utilities Answer Date Recorded In the [...] Total Score - Questions 1-9 0 07/12 [facility] - [...] Office Visit Oswaldo Serrano MD [facility]n 05/03/23 Office Visit Oswaldo Serrano MD [place] [...] st Contact Info) Description 11/18/2025 2:30 PM CORNETIST Office Visit [facility] - Family [facility] #[address] [place] [address] Oswaldo Serrano MD #[address] [address] documented as of this encounter Visit Diagnoses Not on filedocumented in this encounter Additional Health Concerns Assessment Noted Time PHQ-9 Depression Total Score: 0 08/09/20 23 2:56 PM CDT documented as of this encounter Care Teams Medical Staff Specialist Relationship Specialty Start Date End Date Oswaldo Serrano MD #[address] [address] PCP - General Family Medicine 05/19/17 Angel Crowe DPM #[address] [address] Consulting Physician Podiatry 06/16/17 Mora Fritz [place] Behavioral Health Navigator 06/15/18 Ok Jorge MD #[address] [address] Consulting Physician Endocrinology 05/12/22 Orlin Urbina, CUSTOMER ACCOUNT SPECIALIST, PUBLIC EVENTS FACILITIES RENTAL MANAGER #2 [facility] [place] [address] Nurse Practitioner Advanced Practice Nurse 11/09/22 documented as of this encounter
--- OUTSIDE RECORDS SUMMARY | 2025-08-16 12:33 | XMS_ITS | Clinical Summary ---
Author Organization [facility] Address [address] [place] [address] Care Team Providers Care Proc Tech Name Role Phone Oswaldo Serrano MD Primary Care Provider [phone] Pastora Flores MD Unavailable Sandro Hong MD Unavailable Juanis Lo MD Unavailable Allergies Active Allergy Reactions Criticality Noted Date Comments Sulfa (Sulfonamide Antibiotics) Medications escitalopram (LEXAPRO) 10 mg tablet Take 1 tablet (10 mg total) by mouth daily 024 Active ferrous sulfate 325 mg (65 mg [...] by mouth 2 (two) times a day 017 Active Gemtesa 75 mg tablet Take 1 [...] mg total) by mouth daily 30 tablet 024 Active pen needle, diabetic 32 gauge x 32 needle Use as directed 3 times a day. 100 each 024 Active lidocaine (LMX) 4 % cream Apply 2.5 g (1 Application total) topically daily 30 g 2 024 2026 Active lidocaine (ASPERCREME) 4 % adhesive patch,medicated Place 1 patch on the skin daily as needed Active polyethylene glycol (MIRALAX) 17 gram packet Take 1 packet (17 g total) by mouth daily as needed for constipation Active diphenhydrAMINE HCL 2 % gel Apply topically every 6 (six) hours as needed Active acetaminophen (TYLENOL) 500 mg tablet Take 1 tablet (500 mg total) by mouth every 6 (six) hours as needed for pain Active hydrOXYzine (ATARAX) 25 mg tablet Take 1 tablet (25 mg total) by mouth every 4 (four) hours as needed for itching or anxiety 60 tablet 025 Active sacubitriL-vals mariza (ENTRESTO) 24-26 mg tablet Take 0.5 tablets by mouth 2 (two) times a day 025 Active nortriptyline (PAMELOR) 10 mg capsule Take 1 capsule (10 mg total) by mouth nightly Active apixaban (ELIQUIS) 5 mg tablet Take 1 tablet (5 mg total) by mouth 2 (two) times a day Active busPIRone (BUSPAR) 10 mg tablet Take 1 tablet (10 mg total) by mouth 2 (two) times a day Active cyanocobalamin (Vitamin B-12) 500 mcg tablet Take 1 tablet (500 mcg total) by mouth daily Active metoprolol XL (TOPROL-XL) 25 mg extended release tablet Take 1 tablet (25 mg total) by mouth daily Active ascorbic acid 500 mg tablet,chewable Take 1 tablet/chew tab (500 mg total) by mouth daily Active furosemide (LASIX) 40 mg tablet Take 1 tablet (40 mg total) by mouth daily Active QUEtiapine (SEROquel) 25 mg tabletIndicatio ns:Depression Treatment Adjunct,mood stabilization/a ggitation Take 1 tablet (25 mg total) by mouth 3 (three) times a day 90 tablet 2024 Active insulin lispro (HumaLOG, ADMELOG) 100 unit/mL vial for injection Inject 5 Units under the skin 3 (three) times a day before meals Active miconazole 2 % powder Apply topically 2 (two) times a day Active insulin lispro (HumaLOG, ADMELOG) 100 unit/mL vial for injection Blood glucose mg/dL: 149 or less: No insulin 150-199: give 2 unit 200-249: give 4 units 250-299: give 6 units 300-349: give 8 units and notify physician for adjustment of insulin orders. 350-399: give 10 units and notify physician for adjustment of insulin orders. 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 Take 1 capsule (500 mg total) by mouth 2 (two) times a day for 300 doses 2025 Active multivit bhydkpmr-yunf-K A-calcium (THERA-M) 9 mg iron-400 mcg tablet Take 1 tablet by mouth daily 2024 Discontinued(T herapy completed) metoprolol XL (TOPROL-XL) 100 mg 24 hr tablet Take 1 tablet (100 mg total) by mouth daily 90 tablet 024 2024 Discontinued(S top Taking at Discharge) empagliflozin (JARDIANCE) 10 mg tabletIndicatio ns:Heart Failure Take 1 tablet (10 mg total) by mouth daily 30 tablet 025 2024 Discontinued(S top Taking at Discharge) cefadroxil (DURICEF) 500 mg capsuleIndicati ons:MSSA BSI, in conjuction with Dalbavancin, 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 Take 1 capsule (500 mg total) by mouth 2 (two) times a day for 300 doses 2024 Discontinued furosemide (LASIX) 80 mg tablet Take 1 tablet (80 mg total) by mouth 2 (two) times a day 2024 Discontinued(T herapy completed) spironolactone (ALDACTONE) 25 mg tablet Take 1 tablet (25 mg total) by mouth daily 2024 Discontinued(S top Taking at Discharge) rivaroxaban (XARELTO) 15 mg tabletIndicatio ns:atrial fibrillation Take 1 tablet (15 mg total) by mouth daily with dinner 2024 Discontinued(T herapy completed) insulin glargine 100 unit/mL vial for injection Inject 15 Units under the skin nightly 2024 Discontinued(S top Taking at Discharge) insulin aspart (NovoLOG) 100 unit/mL vial for injectionIndica tions:Diabetes Mellitus,type 2 diabetes mellitus Inject 15 Units under the skin 3 (three) times a day before meals 2024 Discontinued(S top Taking at Discharge) Active Problems Problem Noted Date Diagnosed Date [...] while she was receiving aggressive diuresis. - CT liver function labs Assessment & Plan (02/27/2025 [...] while she was receiving aggressive diuresis. - CT liver function labs Assessment & Plan (02/26/2025 [...] while she was receiving aggressive diuresis. - CT liver function labs Drowsiness 02/25/2025 Assessment & Plan (03/05/2025 7:31 AM CDT): Due to TBI at age 11. Lives independently, receives support from sisters who live near by who are also POAs. Occasionally becomes agitated in the hospital. Oriented to self, place, not date at baseline. At outside hospital, before this transferral to [facility], she was agitated requiring IV Haldol 5. [...] At outside hospital, before this transferral to [facility], she was agitated requiring IV Haldol 5. [...] At outside hospital, before this transferral to [facility], she was agitated requiring IV Haldol 5. [...] At outside hospital, before this transferral to [facility], she was agitated requiring IV Haldol 5. [...] At outside hospital, before this transferral to [facility], she was agitated requiring IV Haldol 5. [...] At outside hospital, before this transferral to [facility], she was agitated requiring IV Haldol 5. [...] At outside hospital, before this transferral to [facility], she was agitated requiring IV Haldol 5. [...] while she was receiving aggressive diuresis. - CT liver function labs Assessment & Plan (02/25/2025 [...] At outside hospital, before this transferral to [facility], she was agitated requiring IV Haldol 5. [...] At outside hospital, before this transferral to [facility], she was agitated requiring IV Haldol 5. [...] At outside hospital, before this transferral to [facility], she was agitated requiring IV Haldol 5. [...] At outside hospital, before this transferral to [facility], she was agitated requiring IV Haldol 5. [...] At outside hospital, before this transferral to [facility], she was agitated requiring IV Haldol 5. [...] At outside hospital, before this transferral to [facility], she was agitated requiring IV Haldol 5. [...] At outside hospital, before this transferral to [facility], she was agitated requiring IV Haldol 5. [...] was referred to Valve clinic here at [facility]. However, she did not follow up. Valve [...] was referred to Valve clinic here at [facility]. However, she did not follow up. Valve [...] was referred to Valve clinic here at [facility]. However, she did not follow up. Valve [...] was referred to Valve clinic here at [facility]. However, she did not follow up. Valve [...] was referred to Valve clinic here at [facility]. However, she did not follow up. Valve [...] was referred to Valve clinic here at [facility]. However, she did not follow up. Valve [...] was referred to Valve clinic here at [facility]. However, she did not follow up. Valve [...] was referred to Valve clinic here at [facility]. However, she did not follow up. Valve [...] was referred to Valve clinic here at [facility]. - Consult valve team for possible TR repair Assessment & Plan (02/24/2025 5:36 AM CDT): CTS was consulted during Oct 2024 admission and mentioned not candidate for surgery due to intellectual disability and will not do well postop in ICU with tubes. - Referred to Valve clinic here at [facility] Acute exacerbation of chronic heart failure 02/07 Assessment & Plan (03/05/2025 10:58 AM CDT): Presented to [facility] for MAYS, orthopnea, difficulty mobilizing for 2-3 weeks. Her pai gow dealer Dr. Flores increased lasix from 40 every [...] Plan (03/04/2025 10:24 AM CDT): Presented to [facility] for MAYS, orthopnea, difficulty mobilizing for 2-3 weeks. Her pai gow dealer Dr. Flores increased lasix from 40 every [...] Plan (03/03/2025 7:19 AM CDT): Presented to [facility] for MAYS, orthopnea, difficulty mobilizing for 2-3 weeks. Her pai gow dealer Dr. Flores increased lasix from 40 every [...] jardiance 10 mg daily - Continue Entresto 24- to 1 tab BID (peck check $0) - tele, daily weights, I/O Assessment & Plan (03/02/2025 2:33 PM CDT): Presented to [facility] for MAYS, orthopnea, difficulty mobilizing for 2-3 weeks. Her pai gow dealer Dr. Flores increased lasix from 40 every [...] Plan (03/01/2025 10:24 AM CDT): Presented to [facility] for MAYS, orthopnea, difficulty mobilizing for 2-3 weeks. Her pai gow dealer Dr. Flores increased lasix from 40 every [...] Plan (02/28/2025 3:45 PM CDT): Presented to [facility] for MAYS, orthopnea, difficulty mobilizing for 2-3 weeks. Her pai gow dealer Dr. Flores increased lasix from 40 every [...] Plan (02/27/2025 12:52 PM CDT): Presented to [facility] for [facility]YS, orthopnea, difficulty mobilizing for 2-3 weeks. Her pai gow dealer Dr. Flores increased lasix from 40 every [...] Plan (02/26/2025 11:04 AM CDT): Presented to [facility] for MAYS, orthopnea, difficulty mobilizing for 2-3 weeks. Her pai gow dealer Dr. Flores increased lasix from 40 every [...] Plan (02/25/2025 11:56 AM CDT): Presented to [facility] for MAYS, orthopnea, difficulty mobilizing for 2-3 weeks. Her pai gow dealer Dr. Flores increased lasix from 40 every [...] Plan (02/24/2025 6:41 AM CDT): Presented to [facility] for MAYS, orthopnea, difficulty mobilizing for [...] Encounters Date Type Department Care Team Description 08/07/2025 4:35 PM CDT - 08/07/2025 11:59 PM CDT Hospital Encounter [facility] Discharge Disposition: Discharge to home or self care 08/03/2025 9:07 PM CDT - 08/07/2025 4:33 PM CDT Hospital Encounter [facility] [address] [place] [id number] Azeem Gomez MD Ong, MD Juliette Mendes Kiet T., MD Akuse, MD Handy Flores, Robert Polk MD Hyponatremia (Primary Dx); Hypothyroidism, unspecified type; Hyperbilirubinemia Discharge Disposition: Discharge to SNF 07/24/2025 Orders Only [facility] [address] [place] [address] Annie Block NP from Last 3 Months Surgical History Surgery [...] Given: No Alcohol Use Standard Drinks/Week Comments Never 0 (1 standard drink = 0.6 oz pur e alcohol) Social Connection and Isolation Panel Answer Date Recorded In a typical week, how many times do you talk on the phone with family, friends, or neighbors? More than three times a week 02/25/2025 How often do you get togethe r with friends or relatives? More than three times a week 02/25/2025 How often do you attend chur ch or gnosticism services? Never 02/25/2025 Do you belong to any clubs o r organizations such as zoroastrianism groups, unions, fraternal or athletic groups, or school groups? No 02/25/2025 How often do you attend meet ings of the clubs or organizations you belong to? Never 02/25/2025 Are you , , di vorced, , never , or living with a partner? 02/25/2025 Overall Financial Resource Strain (CARDIA) Answe r Date Recorded How hard is it for you to pa y for the very basics like food, housing, medical care, and heating? Somewhat hard 02/25/2025 PHQ-2 Answer Date Recorded PHQ-2 Total Score (If total score is 3 or more points, staff should administer the PHQ-9) 0 02/24/2025 PRAPARE - Transportation Answer Date Re corded [...] time in the past 12 m [facility], were you homeless or living in a half-way (including now)? No 02/25/2025 Social Connection and Isolation Panel Answer Date Recorded In a typical week, how many times do you talk on the phone with family, friends, or neighbors? More than three times a week 08/05/2025 How often do you get togethe r with friends or relatives? More than three times a week 08/05/2025 How often do you attend chur ch or gnosticism services? Never 08/05/2025 Do you belong to any clubs o r organizations such as zoroastrianism groups, unions, fraternal or athletic groups, or school groups? No 08/05/2025 How often do you attend meet ings of the clubs or organizations you belong to? Never 08/05/2025 Are you , , di vorced, , never , or living with a partner? 08/05/2025 AUDIT-C Answer Date Recorded Q1: How often do you have a drink containing alcohol? Never 08/04/2025 Q2: How many drinks containi ng alcohol do you have on a typical day when you are drinking? Patient does not drink Q3: How often do you have si x or more drinks on one occasion? Never 08/04/2025 Overall Financial Resource Strain (CARDIA) Answe r Date Recorded How hard is it for you to pa y for the very basics like food, housing, medical care, and heating? Hard 08/05/2025 Hunger Vital Sign Answer Date Recorded Within the past 12 months, y ou worried that your food would run out before you got the money to buy more. Sometimes true Within the past 12 months, t he food you bought just didn't last and you didn't have money to get more. Sometimes true PRAPARE - Transportation Answer Date Re corded In the past 12 months, has l ack of transportation kept you from medical appointments or from getting medications? No 07/11 In the past 12 months, has l ack of transportation kept you from meetings, work, or from getting things needed for daily living? No 08/05/2025 Housing Stability Vital Sign Answer Charlie e Recorded In the last 12 months, was t here a time when you were not able to pay the mortgage or rent on time? No 08/05/2025 In the past 12 months, how m any times have you moved where you were living? 0 08/05/2025 At any time in the past 12 m [facility], were you homeless or living in a half-way (including now)? No 08/05/2025 [facility] Utilities Answer Date Recorded In the past 12 months has th e electric, gas, oil, or water company threatened to shut off services in your home? No 08/05/2025 Personal Safety Answer Date Recorded Have you ever been in or are you currently in a harmful physical or emotional relationship or is someone making you feel afraid or unsafe? 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 Gender Identity Not on file Sexual Orientation Not on file Last Filed Vital Signs Vital Sign Reading Time Taken Comments Blood Pressure 125/60 08/07/2025 10:43 AM CDT Pulse 104 08/07/2025 10:43 AM CDT Temperature 36.5 C (97.7 F) 08/07/2025 10:43 AM CDT Respiratory Rate 22 08/07/2025 10:4 3 AM CDT Oxygen Saturation 100% 08/07/2025 10: 43 AM CDT Inhaled Oxygen Concentration - - Weight 120.2 kg (264 lb 15.9 oz) 08/07/2025 6:25 AM CDT Height 165.1 cm (5' 5) 08/04/2025 2:15 AM CDT Body Mass Index 44.1 08/04/2025 2:15 AM CDT Plan of Treatment Health Maintenance Due Date Last Done Comments Albumin Creatinine Ratio, Urine 1961 Cervical Cancer Screening 1961 Dilated Eye Exam 1961 Foot Exam 1961 Hepatitis B Screening 12/20/1979 Regular Well Visit/Exam 18-64 12/20/1979 Zoster Vaccine (1 of 2) 12/20/2011 Breast Cancer Screening-Mammogram 10/27/2022 022, 10/17/2018 Covid-19 Vaccine (3 - 2024-2 6 season) 2025 01/18/2021, 12/23/2020 Influenza Vaccine (#1) 2025 2, 07/18/2020, 06/22/2019, Additional history exists Hemoglobin A1C 02/01/2026 08/03/2025, 080 04/2025, 02/23/2025, Additional history exists Depression Screening 02/21/2026 02/21/2025, 07/03/20 Lipid Panel 02/24/2026 02/24/2025, 10/0 10/2023, 07/09/2024 eGFR 08/07/2026 08/07/2025, 07/11, 08/05/2025, Additional history exists Colon Cancer Screening-Colonoscopy 03/04/2027 03/04/2017 DTaP/Tdap/Td Vaccine (2 - Td or Tdap) 06/10/2034 06/10/2024 Colon Cancer Screening-CT Colonography Discontinued 03/04/2017 Colon Cancer Screening-DNA Stool Discontinued 03/04/20 Colon Cancer Screening-FIT Discontinued 03/04/2017 Colon Cancer Screening-Sigmoidoscopy Discontinued 03/04/2017 Pneumococcal vaccine <65 Completed 08/26/2022 Hepatitis C Screening Completed 02/24/2025 , 10/12/2024, 03/01/2017, Additional history exists Medical Devices Implanted Type Area On Call Device Identifier Shelf Expiration Date Model / Serial / Lot Biotronik Iperia 7 Drt-05/20/2017 Implanted:08/2017 by Jasper Mcfarland MD (Quantity not on file) ICD Chest Wall Biotronik [id number] / [id number] / Biotronik Rv Lead [id number]/11/2 [id number] Implanted:08/2017 (Quantity not on file) Lead Heart [id number] / [id number] / Biotronik Ra Lead [id number]/2 [id number] Implanted: (Quantity not on file) Lead Heart Biotronik [id number] / [id number] / Unknown Wire (~5cm Long) Other - see comments Chest Stent Stent Heart [facility] Mynxgrip 5fr Balloon Catheter Integrate Sealant Lock Latex Free [id number] - [id number] Implanted:Qty : 1 on 10/23/2024 by Sandro Hong MD at [facility] 07/17/2026 [id number] / / [id number] Procedures Procedure Name Priority Date/Time Associated Diagnosis Comments POCT GLUCOSE DEVICE Routine 08/07/2025 1 1:31 AM CDT EGFR Routine 08/07/2025 8:29 AM CDT PHOSPHORUS Routine 08/07/2025 8:29 AM CDT BILIRUBIN, DIRECT Routine 08/07/2025 8:2 9 AM CDT COMPREHENSIVE METABOLIC PANEL Routine 08/07/2025 8:29 AM CDT DIFFERENTIAL AUTO Routine 08/07/2025 8:2 9 AM CDT MAGNESIUM Routine 08/07/2025 8:29 AM CDT PRO B-TYPE NATRIURETIC PEPTIDE Routine 08/07/2025 8:29 AM CDT CBC WITH AUTO DIFFERENTIAL Routine 08/07/2025 8:29 AM CDT POCT GLUCOSE DEVICE Routine 08/07/2025 7 :46 AM CDT POCT GLUCOSE DEVICE Routine 08/07/2025 4 :34 AM CDT POCT GLUCOSE DEVICE Routine 08/06/2025 7 :57 PM CDT POCT GLUCOSE DEVICE Routine 08/06/2025 4 :27 PM CDT POCT GLUCOSE DEVICE Routine 08/06/2025 1 1:24 AM CDT EGFR Routine 08/06/2025 8:16 AM CDT PHOSPHORUS Routine 08/06/2025 8:16 AM CDT BILIRUBIN, DIRECT Routine 08/06/2025 8:1 6 AM CDT COMPREHENSIVE METABOLIC PANEL Routine 08/06/2025 8:16 AM CDT DIFFERENTIAL AUTO Routine 08/06/2025 8:1 6 AM CDT FOLATE Routine 08/06/2025 8:16 AM CDT VITAMIN B12 Routine 08/06/2025 8:16 AM CDT PRO B-TYPE NATRIURETIC PEPTIDE Routine 08/06/2025 8:16 AM CDT CBC WITH AUTO DIFFERENTIAL Routine 08/06/2025 8:16 AM CDT POCT GLUCOSE DEVICE Routine 08/06/2025 7 :40 AM CDT POCT GLUCOSE DEVICE Routine 08/05/2025 8 :30 PM CDT POCT GLUCOSE DEVICE Routine 08/05/2025 4 :38 PM CDT POCT GLUCOSE DEVICE Routine 08/05/2025 1 1:34 AM CDT POCT GLUCOSE DEVICE Routine 08/05/2025 7 :42 AM CDT EGFR Timed 08/05/2025 7:19 AM CDT COMPREHENSIVE METABOLIC PANEL Timed 08/05/2025 7:19 AM CDT PHOSPHORUS Routine 08/05/2025 7:19 AM CDT EGFR Routine 08/05/2025 4:56 AM CDT PHOSPHORUS Routine 08/05/2025 4:56 AM CDT DIFFERENTIAL AUTO Routine 08/05/2025 4:5 6 AM CDT PRO B-TYPE NATRIURETIC PEPTIDE Routine 08/05/2025 4:56 AM CDT COMPREHENSIVE METABOLIC PANEL Routine 08/05/2025 4:56 AM CDT CBC WITH AUTO DIFFERENTIAL Routine 08/05/2025 4:56 AM CDT POCT GLUCOSE DEVICE Routine 08/05/2025 1 :58 AM CDT SODIUM LEVEL Timed 08/04/2025 11:04 PM CDT POCT GLUCOSE DEVICE Routine 08/04/2025 7 :52 PM CDT SODIUM LEVEL Timed 08/04/2025 5:43 PM CDT POCT GLUCOSE DEVICE Routine 08/04/2025 4 :22 PM CDT CORTISOL 60 MIN Timed 08/04/2025 12:49 PM CDT COSYNTROPIN STIMULATION TEST Timed 08/04/2025 12:49 PM CDT CORTISOL 30 MIN Timed 08/04/2025 12:20 PM CDT POCT GLUCOSE DEVICE Routine 08/04/2025 1 1:23 AM CDT CORTISOL BASELINE Timed 08/04/2025 11: 23 AM CDT EGFR Routine 08/04/2025 10:58 AM CDT PHOSPHORUS Routine 08/04/2025 10:58 AM CDT DIFFERENTIAL AUTO Routine 08/04/2025 10: 58 AM CDT COMPREHENSIVE METABOLIC PANEL Routine 08/04/2025 10:58 AM CDT CBC WITH AUTO DIFFERENTIAL Routine 08/04/2025 10:58 AM CDT PRO B-TYPE NATRIURETIC PEPTIDE Routine 08/04/2025 10:53 AM CDT OSMOLALITY, BLOOD Routine 08/04/2025 10: 53 AM CDT MAGNESIUM Routine 08/04/2025 10:53 AM CDT POCT GLUCOSE DEVICE Routine 08/04/2025 6 :55 AM CDT POCT GLUCOSE DEVICE Routine 08/04/2025 2 :25 AM CDT XR CHEST 1 VIEW ED 08/03/2025 10:30 PM CDT ECG 12-LEAD Routine 08/03/2025 10:17 PM CDT HEMOGLOBIN A1C Add-On 08/03/2025 10:08 PM CDT EGFR STAT 08/03/2025 10:08 PM CDT T4, FREE Add On 08/03/2025 10:08 PM CDT DIFFERENTIAL AUTO STAT 08/03/2025 10: 08 PM CDT CREATINE KINASE (CK), TOTAL STAT 08/03/2025 10:08 PM CDT CRP (ACUTE PHASE) STAT 08/03/2025 10: 08 PM CDT THYROID FUNCTION CASCADE Add-On 08/03/2025 10:08 PM CDT PRO B-TYPE NATRIURETIC PEPTIDE STAT 08/03/2025 10:08 PM CDT PROTIME-INR STAT 08/03/2025 10:08 PM CDT MAGNESIUM Routine 08/03/2025 10:08 PM CDT COMPREHENSIVE METABOLIC PANEL STAT 08/03/2025 10:08 PM CDT CBC WITH AUTO DIFFERENTIAL STAT 08/03/2025 10:08 PM CDT CARDIOLOGY DOCUMENT SCAN Routine 07/23/2025 4:41 PM CDT CARDIOLOGY DOCUMENT SCAN Routine 07/22/2025 4:39 PM CDT HEPATITIS PANEL, ACUTE STAT 11:49 AM CDT LIPID PANEL Timed 02/24/2025 11:49 AM CDT COLONOSCOPY REPORT 03/04/2017 from Last 3 Months or Most Recently Relevant to Health Maintenance Results * POCT glucose (08/07/2025 11:31 AM CDT) Glucose, POC 135 70 - 199 mg/dL Blood 08/07/2025 11:3 1 AM CDT 08/07/2025 11:31 AM CDT Robert Murrell MD LAB POCT ORDERABLES - DEVICE Final Result [facility] [place] [facility] Department [place] [address] * eGFR (08/07/2025 8:29 AM CDT) eGFR 71 >=60 mL/min/1. 73 m2 Comment: Interpretive Data [...] interpretive data was last reviewed 2021. Blood 08/07/2025 8:29 AM CDT 08/07/2025 8:33 AM CDT us Felix Gonzales MD LAB BLOOD ORDERABLES Final Re sult [facility] ([place]) [facility] Department [place] [address] * (ABNORMAL) Differential, auto (08/07/2025 8:29 AM CDT) Neutrophil abs 2.67 1.50 - 6.50 K/cumm Imm gran abs 0.01 0.00 - 0.10 K/cumm [facility] ([place]) Lymphocyte abs 0.71(L) 0.80 - 3.30 K/cumm [facility] ([place]) Monocyte abs 0.40 0.20 - 0.80 K/cumm [facility] ([place]) Eosinophil abs 0.28 0.00 - 0.50 K/cumm [facility] ([place]) Basophil abs 0.07 0.00 - 0.10 K/cumm [facility] ([facility]) Neutrophil pct 64.5 % [facility] ([place]) Comment: Interpretive Data Percent cell count reference ranges are not reported, since discordance with absolute values may lead to misinterpretation of CBC data. Current Interpretive Data was last revised on 2018. Imm gran pct 0.2 % [facility] ([place]) Comment: Interpretive Data Percent cell count reference ranges are not reported, since discordance with absolute values may lead to misinterpretation of CBC data. Current Interpretive Data was last revised on 2018. Lymphocyte pct 17.1 % [facility] ([place]) Comment: Interpretive Data Percent cell count reference ranges are not reported, since discordance with absolute values may lead to misinterpretation of CBC data. Current Interpretive Data was last revised on 2018. Monocyte pct 9.7 % [facility] ([place]) Comment: Interpretive Data Percent cell count reference ranges are not reported, since discordance with absolute values may lead to misinterpretation of CBC data. Current Interpretive Data was last revised on 2018. Eosinophil pct 6.8 % [facility] ([place]) Comment: Interpretive Data Percent cell count reference ranges are not reported, since discordance with absolute values may lead to misinterpretation of CBC data. Current Interpretive Data was last revised on 2018. Basophil pct 1.7 % [facility] ([place]) Comment: Interpretive Data Percent cell count reference ranges are not reported, since discordance with absolute values may lead to misinterpretation of CBC data. Current Interpretive Data was last revised on 2018. Blood 08/07/2025 8:29 AM CDT 08/07/2025 8:33 AM CDT us Nilesh Segovia MD LAB BLOOD ORDERABLES Final Resu lt OL[facility]N ([place]) 1 [facility] Department [place] [address] * (ABNORMAL) Pro B-type natriuretic peptide (08/07/2025 8:29 AM CDT) NT-proBNP 1,132(H) <=300 pg/mL Comment: Interpretive Comments: A. Dyspnea in Acute Care Setting All Ages: < 300 pg/ml, acute heart failure unlikely. < 50 yrs: 300 - 450 pg/ml, further investigation warranted. > 450 pg/ml, acute heart failure likely. 50 - 74 yrs: 300 - 900 pg/ml, further investigation warranted. > 900 pg/ml, acute heart failure likely . > or = 75 yrs: 450 - 1800 pg/ml, further investigation warranted. > 1800 pg/ml, acute heart failure likely. B. Non-acute Setting < 75 yrs < 125 pg/ml, rules out heart failure. > or = 125 pg/ml, further investigation warranted. > or = 75 yrs < 450 pg/ml, rules out heart failure. > or = 450 pg/ml, further investigation [...] Interpretive Data Last Revised Date: 2018. Blood 08/07/2025 8:29 AM CDT 08/07/2025 8:33 AM CDT us Felix Gonzales MD LAB BLOOD ORDERABLES Final Re sult [facility] ([place]) 1 [facility] Department [place] [address] * (ABNORMAL) CBC with auto differential (08/07/2025 8:29 AM CDT) WBC 4.14 3.80 - 9.90 K/cumm Hgb 12.4 11.9 - 15.5 g/dL [facility] ([place]) Hct 36.8 35.6 - 45.5 % [facility] ([place]) Plt 144(L) 150 - 400 K/cumm [facility] ([place]) MPV 9.2 9.1 - 12.3 fL [facility] ([place]) RBC 3.64(L) 3.90 - 5.20 M/cumm [facility] ([place]) MCV 101.1(H) 81.3 - 96.4 fL [facility] ([place]) MCH 34.1(H) 27.1 - 33.3 pg [facility] ([place]) MCHC 33.7 32.3 - 35.7 g/dL [facility] ([place]) RDW CV 17.5(H) 11.1 - 14.9 % [facility] ([place]) RDW SD 65.2(H) 35.7 - 48.1 fL [facility] ([place]) NRBC abs 0.00 0.00 - 0.01 K/cumm [facility] ([place]) Blood 08/07/2025 8:29 AM CDT 08/07/2025 8:33 AM CDT us Nilesh Segovia MD LAB BLOOD ORDERABLES Final Resu lt Performing Organization Address City/[facility]/ZIP Co de Phone Number [facility] ([place]) 1 [facility] [place] [address] * Phosphorus (08/07/2025 8:29 AM CDT) Phosphorus, pl 3.2 2.3 - 4.5 mg/dL Blood 08/07/2025 8:29 AM CDT 08/07/2025 8:33 AM CDT us Felix Gonzales MD LAB BLOOD ORDERABLES Final Re sult Performing Organization Address [facility] Co de Phone Number [facility] ([place]) 1 [facility] [place] [address] * Magnesium (08/07/2025 8:29 AM CDT) Magnesium 2.0 1.4 - 2.5 mg/dL Blood 08/07/2025 8:29 AM CDT 08/07/2025 8:33 AM CDT us Robert Murrell MD LAB BLOOD ORDERABLES Final R esult Performing Organization Address [facility] Co de Phone Number [facility] ([place]) 1 [facility] [place] [address] * (ABNORMAL) Bilirubin, direct (08/07/2025 8:29 AM CDT) Bilirubin, direct 2.4(H) 0.1 - 0.3 mg/dL Blood 08/07/2025 8:29 AM CDT 08/07/2025 8:33 AM CDT us Felix Gonzales MD LAB BLOOD ORDERABLES Final Re sult Performing Organization Address City/[facility]/ZIP Co de Phone Number [facility] ([place]) 1 [facility] Department [place] [address] * (ABNORMAL) Comprehensive metabolic panel (08/07/2025 8:29 AM CDT) Sodium 131(L) 135 - 145 mmol/L Potassium, pl 4.0 3.3 - 4.9 mmol/L [facility] ([place]) Chloride 97 97 - 110 mmol/L [facility] ([place]) CO2 27 22 - 32 mmol/L [facility] ([place]) Anion gap 7 2 - 15 mmol/L [facility] ([place]) BUN 18 6 - 25 mg/dL [facility] ([place]) Creatinine 0.91 0.60 - 1.10 mg/dL [facility] ([place]) Glucose 105 70 - 199 mg/dL [facility] ([place]) Comment: Interpretive Data Fasting glucose >/= 126 mg/dl is diagnostic for diabetes. Fasting is defined as no caloric intake [...] Calcium 8.8 8.5 - 10.3 mg/dL [facility] ([place]) Bilirubin, total 3.3(H) 0.1 - 1.2 mg/dL [facility] ([place]) Protein, pl 5.8(L) 6.5 - 8.5 g/dL [facility] ([place]) Albumin 3.0(L) 3.5 - 5.0 g/dL [facility] ([place]) Alk phos 317(H) 40 - 130 Units/L [facility] ([place]) ALT 26 7 - 45 Units/L [facility] ([place]) AST 42 10 - 45 Units/L [facility] ([place]) Blood 08/07/2025 8:29 AM CDT 08/07/2025 8:33 AM CDT us Felix Gonzales MD LAB BLOOD ORDERABLES Final Re sult [facility] ([place]) 1 [facility] [place] [address] * POCT glucose (08/07/2025 7:46 AM CDT) Glucose, POC 91 70 - 199 mg/dL Blood 08/07/2025 7:46 AM CDT 08/07/2025 7:46 AM CDT us Robert Murrell MD LAB POCT ORDERABLES - DEVICE Final Result Performing Organization Address [facility] Co de Phone Number [facility] ([place]) 1 [facility] [place] [address] * POCT glucose (08/07/2025 4:34 AM CDT) Glucose, POC 70 70 - 199 mg/dL Blood 08/07/2025 4:34 AM CDT 08/07/2025 4:34 AM CDT us Robert Murrell MD LAB POCT ORDERABLES - DEVICE Final Result Performing Organization Address City/[facility]/ZIP Co de Phone Number [facility] ([place]) 1 [facility] [place] [address] * POCT glucose (08/06/2025 7:57 PM CDT) Glucose, POC 186 70 - 199 mg/dL Blood 08/06/2025 7:57 PM CDT 08/06/2025 7:57 PM CDT us Robert Murrell MD LAB POCT ORDERABLES - DEVICE Final Result [facility] ([place]) 1 [facility] [place] [address] * POCT glucose (08/06/2025 4:27 PM CDT) Glucose, POC 175 70 - 199 mg/dL Blood 08/06/2025 4:27 PM CDT 08/06/2025 4:27 PM CDT us Robert Murrell MD LAB POCT ORDERABLES - DEVICE Final Result [facility] ([place]) 1 [facility] [place] [address] * POCT glucose (08/06/2025 11:24 AM CDT) Glucose, POC 96 70 - 199 mg/dL Blood 08/06/2025 11:2 4 AM CDT 08/06/2025 11:24 AM CDT us Mary Manning MD LAB POCT ORDERABLES - DEVICE Final Result Performing Organization Address City/[facility]/ZIP Co de Phone Number [facility] ([place]) 1 [facility] [place] [address] * eGFR (08/06/2025 8:16 AM CDT) eGFR 65 >=60 mL/min/1. 73 m2 Comment: Interpretive Data [...] interpretive data was last reviewed 2021. Blood 08/06/2025 8:16 AM CDT 08/06/2025 8:37 AM CDT us Felix Gonzales MD LAB BLOOD ORDERABLES Final Re sult [facility] ([place]) 1 [facility] Department [place] [address] * (ABNORMAL) Differential, auto (08/06/2025 8:16 AM CDT) Neutrophil abs 2.77 1.50 - 6.50 K/cumm Imm gran abs 0.02 0.00 - 0.10 K/cumm [facility] ([place]) Lymphocyte abs 0.65(L) 0.80 - 3.30 K/cumm [facility] ([place]) Monocyte abs 0.47 0.20 - 0.80 K/cumm [facility] ([place]) Eosinophil abs 0.28 0.00 - 0.50 K/cumm [facility] ([place]) Basophil abs 0.07 0.00 - 0.10 K/cumm [facility] ([place]) Neutrophil pct 65.0 % [facility] ([place]) Comment: Interpretive Data Percent cell count reference ranges are not reported, since discordance with absolute values may lead to misinterpretation of CBC data. Current Interpretive Data was last revised on 2018. Imm gran pct 0.5 % [facility] ([place]) Comment: Interpretive Data Percent cell count reference ranges are not reported, since discordance with absolute values may lead to misinterpretation of CBC data. Current Interpretive Data was last revised on 2018. Lymphocyte pct 15.3 % [facility] ([place]) Comment: Interpretive Data Percent cell count reference ranges are not reported, since discordance with absolute values may lead to misinterpretation of CBC data. Current Interpretive Data was last revised on 2018. Monocyte pct 11.0 % [facility] ([place]) Comment: Interpretive Data Percent cell count reference ranges are not reported, since discordance with absolute values may lead to misinterpretation of CBC data. Current Interpretive Data was last revised on 2018. Eosinophil pct 6.6 % [facility]KKY [facility] ([place]) Comment: Interpretive Data Percent cell count reference ranges are not reported, since discordance with absolute values may lead to misinterpretation of CBC data. Current Interpretive Data was last revised on 2018. Basophil pct 1.6 % [facility] ([place]) Comment: Interpretive Data Percent cell count reference ranges are not reported, since discordance with absolute values may lead to misinterpretation of CBC data. Current Interpretive Data was last revised on 2018. Blood 08/06/2025 8:16 AM CDT 08/06/2025 8:37 AM CDT us Nilesh Segovia MD LAB BLOOD ORDERABLES Final Resu lt [facility] ([place]) 1 [facility] Department [place] [address] * (ABNORMAL) Pro B-type natriuretic peptide (08/06/2025 8:16 AM CDT) NT-proBNP 1,495(H) <=300 pg/mL Comment: Interpretive Comments: A. Dyspnea in Acute Care Setting All Ages: < 300 pg/ml, acute heart failure unlikely. < 50 yrs: 300 - 450 pg/ml, further investigation warranted. > 450 pg/ml, acute heart failure likely. 50 - 74 yrs: 300 - 900 pg/ml, further investigation warranted. > 900 pg/ml, acute heart failure likely . > or = 75 yrs: 450 - 1800 pg/ml, further investigation warranted. > 1800 pg/ml, acute heart failure likely. B. Non-acute Setting < 75 yrs < 125 pg/ml, rules out heart failure. > or = 125 pg/ml, further investigation warranted. > or = 75 yrs < 450 pg/ml, rules out heart failure. > or = 450 pg/ml, further investigation [...] Interpretive Data Last Revised Date: 2018. Blood 08/06/2025 8:16 AM CDT 08/06/2025 8:37 AM CDT us Felix Gonzales MD LAB BLOOD ORDERABLES Final Re sult [facility] ([place]) 1 [facility] Department [place] [address] * (ABNORMAL) CBC with auto differential (08/06/2025 8:16 AM CDT) WBC 4.26 3.80 - 9.90 K/cumm Hgb 12.2 11.9 - 15.5 g/dL [facility] ([place]) Hct 35.7 35.6 - 45.5 % [facility] ([place]) Plt 190 150 - 400 K/cumm [facility] ([place]) MPV 9.3 9.1 - 12.3 fL [facility] ([place]) RBC 3.63(L) 3.90 - 5.20 M/cumm [facility] ([place]) MCV 98.3(H) 81.3 - 96.4 fL [facility] ([place]) MCH 33.6(H) 27.1 - 33.3 pg [facility] ([place]) MCHC 34.2 32.3 - 35.7 g/dL [facility] ([place]) RDW CV 17.4(H) 11.1 - 14.9 % [facility] ([place]) RDW SD 63.5(H) 35.7 - 48.1 fL [facility] ([place]) NRBC abs 0.00 0.00 - 0.01 K/cumm [facility] ([place]) Blood 08/06/2025 8:16 AM CDT 08/06/2025 8:37 AM CDT us Nilesh Segovia MD LAB BLOOD ORDERABLES Final Resu lt [facility]IDE [facility]N ([place]) 1 [facility] [place] [address] * Phosphorus (08/06/2025 8:16 AM CDT) Phosphorus, pl 3.0 2.3 - 4.5 mg/dL Blood 08/06/2025 8:16 AM CDT 08/06/2025 8:37 AM CDT us Felix Gonzales MD LAB BLOOD ORDERABLES Final Re sult Performing Organization Address City/[facility]/ZIP Co de Phone Number [facility] ([place]) 1 [facility] [place] [address] * Folate (08/06/2025 8:16 AM CDT) Folic acid 13.8 >=5.0 ng/mL Blood 08/06/2025 8:16 AM CDT 08/06/2025 8:37 AM CDT us Mary Manning MD LAB BLOOD ORDERABLES Final Result [facility] ([place]) 1 [facility] [place] [address] * (ABNORMAL) Vitamin B12 (08/06/2025 8:16 AM CDT) Vitamin B12 2,677(H) 230 - 1,250 pg/mL Blood 08/06/2025 8:16 AM CDT 08/06/2025 8:37 AM CDT us Mary Manning MD LAB BLOOD ORDERABLES Final Result [facility] ([place]) 1 [facility] [place] [address] * (ABNORMAL) Bilirubin, direct (08/06/2025 8:16 AM CDT) Bilirubin, direct 2.3(H) 0.1 - 0.3 mg/dL Blood 08/06/2025 8:16 AM CDT 08/06/2025 8:37 AM CDT Felix Gonzales MD LAB BLOOD ORDERABLES Final Re sult Performing Organization Address City/[facility]/ZIP Co de Phone Number [facility]N ([place]) 1 [place] [address] * (ABNORMAL) Comprehensive metabolic panel (08/06/2025 8:16 AM CDT) Sodium 129(L) 135 - 145 mmol/L Potassium, pl 4.2 3.3 - 4.9 mmol/L [facility] ([place]) Chloride 96(L) 97 - 110 mmol/L [facility] ([place]) CO2 25 22 - 32 mmol/L [facility] ([place] Anion gap 8 2 - 15 mmol/L [facility] ([place]) BUN 20 6 - 25 mg/dL [facility] ([place]) Creatinine 0.98 0.60 - 1.10 mg/dL [facility] ([place]) Glucose 104 70 - 199 mg/dL [facility] ([place]) Comment: Interpretive Data Fasting glucose >/= 126 mg/dl is diagnostic for diabetes. Fasting is defined as no caloric intake [...] Calcium 8.6 8.5 - 10.3 mg/dL [facility] ([place]) Bilirubin, total 3.3(H) 0.1 - 1.2 mg/dL [facility] ([place]) Protein, pl 5.9(L) 6.5 - 8.5 g/dL [facility] ([place]) Albumin 3.1(L) 3.5 - 5.0 g/dL [facility] ([place]) Alk phos 347(H) 40 - 130 Units/L [facility] ([place]) ALT 29 7 - 45 Units/L [facility] ([place]) AST 44 10 - 45 Units/L [facility] ([place]) Blood 08/06/2025 8:16 AM CDT 08/06/2025 8:37 AM CDT us Felix Gonzales MD LAB BLOOD ORDERABLES Final Re sult [facility] ([place]) 1 [facility] [employer] [place] [address] * POCT glucose (08/06/2025 7:40 AM CDT) Glucose, POC 109 70 - 199 mg/dL Blood 08/06/2025 7:40 AM CDT 08/06/2025 7:40 AM CDT us Mary Manning MD LAB POCT ORDERABLES - DEVICE Final Result [facility] ([place]) 1 [facility] [employer] [place] [place] [address] * POCT glucose (08/05/2025 8:30 PM CDT) Glucose, POC 159 70 - 199 mg/dL Blood 08/05/2025 8:30 PM CDT 08/05/2025 8:30 PM CDT us Mary Manning MD LAB POCT ORDERABLES - DEVICE Final Result [facility] ([place]) 1 [facility] [place] [address] * POCT glucose (08/05/2025 4:38 PM CDT) Glucose, POC 152 70 - 199 mg/dL Blood 08/05/2025 4:38 PM CDT 08/05/2025 4:38 PM CDT us Mary Manning MD LAB POCT ORDERABLES - DEVICE Final Result Performing Organization Address [facility] Co de Phone Number [facility] ([place]) 1 [facility] [place] [address] * POCT glucose (08/05/2025 11:34 AM CDT) Glucose, POC 170 70 - 199 mg/dL Blood 08/05/2025 11:3 4 AM CDT 08/05/2025 11:34 AM CDT us Mary Manning MD LAB POCT ORDERABLES - DEVICE Final Result Performing Organization Address City/[facility]/ZIP Co de Phone Number [facility] ([place]) 1 [facility] [place] [address] * POCT glucose (08/05/2025 7:42 AM CDT) Glucose, POC 117 70 - 199 mg/dL Blood 08/05/2025 7:42 AM CDT 08/05/2025 7:42 AM CDT us Mary Manning MD LAB POCT ORDERABLES - DEVICE Final Result [facility] ([place]) 1 [facility] [place] [address] * eGFR (08/05/2025 7:19 AM CDT) eGFR 62 >=60 mL/min/1. 73 m2 Comment: Interpretive Data [...] interpretive data was last reviewed 2021. Blood 08/05/2025 7:19 AM CDT 08/05/2025 7:48 AM CDT us Felix Gonzales MD LAB BLOOD ORDERABLES Final Re sult [facility] ([place]) 1 [facility] [place] [address] * Phosphorus (08/05/2025 7:19 AM CDT) Phosphorus, pl 2.8 2.3 - 4.5 mg/dL Blood 08/05/2025 7:19 AM CDT 08/05/2025 7:48 AM CDT Mary Manning MD LAB BLOOD ORDERABLES Final Result [facility] ([place]) 1 [facility] [place] [address] * (ABNORMAL) Comprehensive metabolic panel (08/05/2025 7:19 AM CDT) Sodium 130(L) 135 - 145 mmol/L Potassium, pl 4.7 3.3 - 4.9 mmol/L [facility] ([place]) Chloride 94(L) 97 - 110 mmol/L [facility] ([place]) CO2 26 22 - 32 mmol/L [facility] ([place]) Anion gap 10 2 - 15 mmol/L [facility] ([place]) BUN 20 6 - 25 mg/dL [facility] ([place]) Creatinine 1.02 0.60 - 1.10 mg/dL [facility] ([place]) Glucose 124 70 - 199 mg/dL [facility] ([place]) Comment: Interpretive Data Fasting glucose >/= 126 mg/dl is diagnostic for diabetes. Fasting is defined as no caloric intake [...] Calcium 9.0 8.5 - 10.3 mg/dL [facility] ([place]) Bilirubin, total 3.8(H) 0.1 - 1.2 mg/dL [facility] ([place]) Protein, pl 6.7 6.5 - 8.5 g/dL [facility] ([place]) Albumin 3.5 3.5 - 5.0 g/dL [facility] ([place]) Alk phos 401(H) 40 - 130 Units/L [facility] ([place]) ALT 37 7 - 45 Units/L [facility] ([place]) AST 55(H) 10 - 45 Units/L [facility] ([place]) Blood 08/05/2025 7:19 AM CDT 08/05/2025 7:48 AM CDT Felix Gonzales MD LAB BLOOD ORDERABLES Final Re sult Performing Organization Address [facility]/ZIP Co de Phone Number [facility] ([place]) 1 [facility] Department [place] [address] * eGFR (08/05/2025 4:56 AM CDT) eGFR See Comment >=60 mL/min/1. 73 m2 Comment: testing unable to be performed due to hemolysis. Redraw requested Interpretive Data Reference Interval Normal >/= 90 [...] interpretive data was last reviewed 2021. Blood 08/05/2025 4:56 AM CDT 08/05/2025 4:59 AM CDT Nilesh Segovia MD LAB BLOOD ORDERABLES Final Resu lt [facility] ([place]) 1 [facility] Department [place] [address] * (ABNORMAL) Differential, auto (08/05/2025 4:56 AM CDT) Neutrophil abs 3.71 1.50 - 6.50 K/cumm Imm gran abs 0.02 0.00 - 0.10 K/cumm [facility] ([place]) Lymphocyte abs 0.67(L) 0.80 - 3.30 K/cumm [facility] ([place]) Monocyte abs 0.65 0.20 - 0.80 K/cumm [facility] ([place]) Eosinophil abs 0.38 0.00 - 0.50 K/cumm [facility] ([place]) Basophil abs 0.07 0.00 - 0.10 K/cumm [facility] ([place]) Neutrophil pct 67.4 % [facility] ([place]) Comment: Interpretive Data Percent cell count reference ranges are not reported, since discordance with absolute values may lead to misinterpretation of CBC data. Current Interpretive Data was last revised on 2018. Imm gran pct 0.4 % [facility] ([place]) Comment: Interpretive Data Percent cell count reference ranges are not reported, since discordance with absolute values may lead to misinterpretation of CBC data. Current Interpretive Data was last revised on 2018. Lymphocyte pct 12.2 % [facility] ([place]) Comment: Interpretive Data Percent cell count reference ranges are not reported, since discordance with absolute values may lead to misinterpretation of CBC data. Current Interpretive Data was last revised on 2018. Monocyte pct 11.8 % [facility] ([place]) Comment: Interpretive Data Percent cell count reference ranges are not reported, since discordance with absolute values may lead to misinterpretation of CBC data. Current Interpretive Data was last revised on 2018. Eosinophil pct 6.9 % [facility] ([place]) Comment: Interpretive Data Percent cell count reference ranges are not reported, since discordance with absolute values may lead to misinterpretation of CBC data. Current Interpretive Data was last revised on 2018. Basophil pct 1.3 % [facility] ([place]) Comment: Interpretive Data Percent cell count reference ranges are not reported, since discordance with absolute values may lead to misinterpretation of CBC data. Current Interpretive Data was last revised on 2018. Blood 08/05/2025 4:56 AM CDT 08/05/2025 4:59 AM CDT us Nilesh Segovia MD LAB BLOOD ORDERABLES Final Resu lt [facility] ([place]) 1 [facility] Department [place] [address] * (ABNORMAL) Pro B-type natriuretic peptide (08/05/2025 4:56 AM CDT) NT-proBNP 2,034(H) <=300 pg/mL Comment: Interpretive Comments: A. Dyspnea in Acute Care Setting All Ages: < 300 pg/ml, acute heart failure unlikely. < 50 yrs: 300 - 450 pg/ml, further investigation warranted. > 450 pg/ml, acute heart failure likely. 50 - 74 yrs: 300 - 900 pg/ml, further investigation warranted. > 900 pg/ml, acute heart failure likely . > or = 75 yrs: 450 - 1800 pg/ml, further investigation warranted. > 1800 pg/ml, acute heart failure likely. B. Non-acute Setting < 75 yrs < 125 pg/ml, rules out heart failure. > or = 125 pg/ml, further investigation warranted. > or = 75 yrs < 450 pg/ml, rules out heart failure. > or = 450 pg/ml, further investigation [...] well as advanced age. - References: 1. eCsar ROME et.al. Eur Heart J. 2006:27:330-337. 2. Chris RW, Joe AM. J. AM Dave Cardiol: Cardiovasc Imag. 2009;2: 216- 225. Interpretive Data Last Revised Date: 2018. Blood 08/05/2025 4:56 AM CDT 08/05/2025 4:59 AM CDT us Felix Gonzales MD LAB BLOOD ORDERABLES Final Re sult [facility] ([place]) [address] [facility] Department [place] [address] * (ABNORMAL) CBC with auto differential (08/05/2025 4:56 AM CDT) WBC 5.50 3.80 - 9.90 K/cumm Hgb 11.9 11.9 - 15.5 g/dL [facility] ([place]) Hct 35.1(L) 35.6 - 45.5 % [facility] ([place]) Plt 196 150 - 400 K/cumm [facility] ([place]) MPV 9.7 9.1 - 12.3 fL [facility] ([place]) RBC 3.50(L) 3.90 - 5.20 M/cumm [facility] ([place]) MCV 100.3(H) 81.3 - 96.4 fL [facility] ([place]) MCH 34.0(H) 27.1 - 33.3 pg [facility] ([place]) MCHC 33.9 32.3 - 35.7 g/dL [facility] ([place]) RDW CV 17.4(H) 11.1 - 14.9 % [facility] ([place]) RDW SD 64.9(H) 35.7 - 48.1 fL [facility] ([place]) NRBC abs 0.00 0.00 - 0.01 K/cumm [facility] ([place]) Blood 08/05/2025 4:56 AM CDT 08/05/2025 4:59 AM CDT Nilesh Segovia MD LAB BLOOD ORDERABLES Final Resu lt [facility] ([place]) 1 [facility] Department [place] [address] * Phosphorus (08/05/2025 4:56 AM CDT) Phosphorus, pl See Comment 2.3 - 4.5 mg/dL Comment:testing unable to be performed due to hemolysis. Redraw requested Blood 08/05/2025 4:56 AM CDT 08/05/2025 4:59 AM CDT Nilesh Segovia MD LAB BLOOD ORDERABLES Final Resu lt [facility] ([place]) 1 [facility] Department [place] [address] * Comprehensive metabolic panel (08/05/2025 4:56 AM CDT) Sodium See Comment 135 - 145 Comment:testing unable to be performed due to hemolysis. Redraw requested Potassium, pl See Comment 3.3 - 4.9 [facility] ([place]) Comment:testing unable to be performed due to hemolysis. Redraw requested Chloride See Comment 97 - 110 [facility] ([place]) Comment:testing unable to be performed due to hemolysis. Redraw requested CO2 See Comment 22 - 32 [facility] ([place]) Comment:testing unable to be performed due to hemolysis. Redraw requested Anion gap See Comment 2 - 15 [facility] ([place]) Comment:testing unable to be performed due to hemolysis. Redraw requested BUN See Comment 6 - 25 [facility] ([place]) Comment:testing unable to be performed due to hemolysis. Redraw requested Creatinine See Comment 0.60 - 1.10 [facility] ([place]) Comment:testing unable to be performed due to hemolysis. Redraw requested Glucose See Comment 70 - 199 [facility] ([place]) Comment: testing unable to be performed due to hemolysis. Redraw requested Interpretive Data Fasting glucose >/= 126 mg/dl is diagnostic for diabetes. Fasting is defined as no caloric intake [...] interpretive data was last revised 2022. Calcium See Comment 8.5 - 10.3 [facility] ([place]) Comment:testing unable to be performed due to hemolysis. Redraw requested Bilirubin, total See Comment 0.1 - 1.2 C [facility] ([place]) Comment:testing unable to be performed due to hemolysis. Redraw requested Protein, pl See Comment 6.5 - 8.5 g/dL [facility] ([place]) Comment:testing unable to be performed due to hemolysis. Redraw requested Albumin See Comment 3.5 - 5.0 [facility] ([place]) Comment:testing unable to be performed due to hemolysis. Redraw requested Alk phos See Comment 40 - 130 [facility] ([place]) Comment:testing unable to be performed due to hemolysis. Redraw requested ALT See Comment 7 - 45 [facility] ([place]) Comment:testing unable to be performed due to hemolysis. Redraw requested AST See Comment 10 - 45 [facility] Arevalo ([facility]) Comment:testing unable to be performed due to hemolysis. Redraw requested Blood 08/05/2025 4:56 AM CDT 08/05/2025 4:59 AM CDT Nilesh Segovia MD LAB BLOOD ORDERABLES Final Resu lt Performing Organization Address City/[facility]/ZIP Co de Phone Number [facility] ([facility]) 1 [facility] [employer] [place] [address] * POCT glucose (08/05/2025 1:58 AM CDT) Glucose, POC 162 70 - 199 mg/dL Blood 08/05/2025 1:58 AM CDT 08/05/2025 1:58 AM CDT Mary Manning MD LAB POCT ORDERABLES - DEVICE Final Result [facility] ([facility] 1 [facility] [place] [address] * (ABNORMAL) Sodium level (08/04/2025 11:04 PM CDT) Sodium 131(L) 135 - 145 mmol/L Blood 08/04/2025 11:0 4 PM CDT 08/04/2025 11:07 PM CDT Nilesh Segovia MD LAB BLOOD ORDERABLES Final Resu lt [facility] ([facility] [facility]) 1 [facility] [place] [address] * POCT glucose (08/04/2025 7:52 PM CDT) Glucose, POC 80 70 - 199 mg/dL Blood 08/04/2025 7:52 PM CDT 08/04/2025 7:52 PM CDT Mary Manning MD LAB POCT ORDERABLES - DEVICE Final Result Performing Organization Address [facility]/ZIP Co de Phone Number [facility] ([place] [facility]) 1 [facility] [place] [address] * (ABNORMAL) Sodium level (08/04/2025 5:43 PM CDT) Sodium 129(L) 135 - 145 mmol/L Blood 08/04/2025 5:43 PM CDT 08/04/2025 5:46 PM CDT Nilesh Segovia MD LAB BLOOD ORDERABLES Final Resu lt Performing Organization Address City/[facility]/ZIP Co de Phone Number [facility] ([place] [facility]) 1 [facility] [place] [address] * POCT glucose (08/04/2025 4:22 PM CDT) Glucose, POC 79 70 - 199 mg/dL Blood 08/04/2025 4:22 PM CDT 08/04/2025 4:22 PM CDT Mary Manning MD LAB POCT ORDERABLES - DEVICE Final Result [facility] ([place] [facility]) 1 [facility] [place] [address] * Cortisol 60 min (08/04/2025 12:49 PM CDT) Cortisol, 60 min 19.0 4.8 - 19.5 mcg/dL Comment: Interpretive Data Reference Values Cortisol cutoff of 14-15 ug/dL for cortrosyn stimulation testing. Lack of normal response can be seen in both primary and secondary adrenal failure. Some patients with secondary adrenal failure have normal response to cortrosyn. If pituitary disease is known or strongly suspected e.g. after pituitary surgery), the cortrosyn test alone should not be relied on to exclude adrenal failure. Literature References: 1. Genet BR, Spencer H, Rios TB, et al. New cutoffs for the biochemical diagnosis of adrenal insufficiency after ACTH stimulation using specific cortisol assays. J Endocr Soc. 2020;5(4):uwhs202. 2. Marcos ROMEP and [place] AM. New cutoffs for the biochemical diagnosis of Adrenal insufficiency after ACTH stimulation using specific cortisol assays. J. Endocrine Soc 2020;5:1-2. Current interpret data was last revised 24 Testing performed by: [facility], [address] [place] [address]., [id number] Blood 08/04/2025 12:4 9 PM CDT 08/04/2025 5:31 PM CDT Narrative [facility] ([place] [facility]) - 08/04/2025 6:10 PM CDT First draw prior to administration of cosyntropin. Second draw 30 minutes after administration of drug. Third draw 60 minutes after administration of drug. us Felix Gonzales MD LAB BLOOD ORDERABLES Final Re sult [facility] [facility] 1 [facility] Department [place] [address] * Cortisol 30 min (08/04/2025 12:20 PM CDT) Cortisol, 30 min 17.0 4.8 - 19.5 mcg/dL Comment: Interpretive Data Reference Values Cortisol cutoff of 14-15 ug/dL for cortrosyn stimulation testing. Lack of normal response can be seen in both primary and secondary adrenal failure. Some patients with secondary adrenal failure have normal response to cortrosyn. If pituitary disease is known or strongly suspected e.g. after pituitary surgery), the cortrosyn test alone should not be relied on to exclude adrenal failure. Literature References: 1. Genet BR, Spencer H, Rios TB, et al. New cutoffs for the biochemical diagnosis of adrenal insufficiency after ACTH stimulation using specific cortisol assays. J Endocr Soc. 2020;5(4):srix487. 2. Marcos ROMEP and Carolina AM. New cutoffs for the biochemical diagnosis of Adrenal insufficiency after ACTH stimulation using specific cortisol assays. J. Endocrine Soc 2020;5:1-2. Current interpret data was last revised 24 Testing performed by: [facility], [address] [place] [address], [place]., [address] Blood 08/04/2025 12:2 0 PM CDT 08/04/2025 5:31 PM CDT Narrative [facility] ([place]) - 08/04/2025 6:00 PM CDT First draw prior to administration of cosyntropin. Second draw 30 minutes after administration of drug. Third draw 60 minutes after administration of drug. Felix Gonzales MD LAB BLOOD ORDERABLES Final Re sult [facility] FEMI ([facility] [facility]) 1 [facility] Department [place] [address] * Cortisol baseline (08/04/2025 11:23 AM CDT) [facility] Cortisol, base 15.0 4.8 - 19.5 mcg/dL Comment:Testing performed by : [facility], [address] [place] [address], [place]., [address] Blood 08/04/2025 11:2 3 AM CDT 08/04/2025 5:31 PM CDT Narrative [facility] ([place]) - 08/04/2025 6:00 PM CDT First draw prior to administration of cosyntropin. Second draw 30 minutes after administration of drug. Third draw 60 minutes after administration of drug. us Felix Gonzales MD LAB BLOOD ORDERABLES Final Re sult [facility] ([place] [facility]) 1 [facility] [place] [address] * POCT glucose (08/04/2025 11:23 AM CDT) Glucose, POC 70 70 - 199 mg/dL Blood 08/04/2025 11:2 3 AM CDT 08/04/2025 11:23 AM CDT Mary Manning MD LAB POCT ORDERABLES - DEVICE Final Result Performing Organization Address City/[facility]/ZIP Co de Phone Number [facility] ([place] [facility]) 1 [facility] [place] [address] * eGFR (08/04/2025 10:58 AM CDT) eGFR 60 >=60 mL/min/1. 73 m2 [...] interpretive data was last reviewed 2021. Blood 08/04/2025 10:5 8 AM CDT 08/04/2025 11:03 AM CDT us Nilesh Segovia MD LAB BLOOD ORDERABLES Final Resu lt OLAIMDE [facility]N ([place] [facility]) 1 [facility] Department [place] [address] * (ABNORMAL) Differential, auto (08/04/2025 10:58 AM CDT) Neutrophil abs 3.17 1.50 - 6.50 K/cumm Imm gran abs 0.01 0.00 - 0.10 K/cumm [facility] ([place]) Lymphocyte abs 0.61(L) 0.80 - 3.30 K/cumm [facility] ([facility]) Monocyte abs 0.49 0.20 - 0.80 K/cumm [facility] ([facility]) Eosinophil abs 0.25 0.00 - 0.50 K/cumm [facility] ([place]) Basophil abs 0.06 0.00 - 0.10 K/cumm [facility] ([place]) Neutrophil pct 69.1 % [facility] ([facility] [facility]) Comment: Interpretive Data Percent cell count reference ranges are not reported, since discordance with absolute values may lead to misinterpretation of CBC data. Current Interpretive Data was last revised on 2018. Imm gran pct 0.2 % [facility] ([facility]) Comment: Interpretive Data Percent cell count reference ranges are not reported, since discordance with absolute values may lead to misinterpretation of CBC data. Current Interpretive Data was last revised on 2018. Lymphocyte pct 13.3 % [facility] ([place]) Comment: Interpretive Data Percent cell count reference ranges are not reported, since discordance with absolute values may lead to misinterpretation of CBC data. Current Interpretive Data was last revised on 2018. Monocyte pct 10.7 % [facility] ([place]) Comment: Interpretive Data Percent cell count reference ranges are not reported, since discordance with absolute values may lead to misinterpretation of CBC data. Current Interpretive Data was last revised on 2018. Eosinophil pct 5.4 % [facility] ([place]) Comment: Interpretive Data Percent cell count reference ranges are not reported, since discordance with absolute values may lead to misinterpretation of CBC data. Current Interpretive Data was last revised on 2018. Basophil pct 1.3 % [facility] ([place]) Comment: Interpretive Data Percent cell count reference ranges are not reported, since discordance with absolute values may lead to misinterpretation of CBC data. Current Interpretive Data was last revised on 2018. Blood 08/04/2025 10:5 8 AM CDT 08/04/2025 11:03 AM CDT us Nilesh Segovia MD LAB BLOOD ORDERABLES Final Resu lt [facility] ([place]) 1 [facility] Department [place] [address] * (ABNORMAL) CBC with auto differential (08/04/2025 10:58 AM CDT) WBC 4.59 3.80 - 9.90 K/cumm Hgb 13.0 11.9 - 15.5 g/dL [facility] ([place]) Hct 38.8 35.6 - 45.5 % [facility] ([place]) Plt 202 150 - 400 K/cumm [facility] ([place]) MPV 9.4 9.1 - 12.3 fL [facility] ([place]) RBC 3.87(L) 3.90 - 5.20 M/cumm [facility] ([place]) MCV 100.3(H) 81.3 - 96.4 fL [facility] ([place]) MCH 33.6(H) 27.1 - 33.3 pg [facility] ([place]) MCHC 33.5 32.3 - 35.7 g/dL [facility] ([place]) RDW CV 17.3(H) 11.1 - 14.9 % [facility] ([place]) RDW SD 63.7(H) 35.7 - 48.1 fL [facility] ([place]) NRBC abs 0.00 0.00 - 0.01 K/cumm [facility] ([place]) Blood 08/04/2025 10:5 8 AM CDT 08/04/2025 11:03 AM CDT Narrative [facility] ([place]) - 08/04/2025 11:06 AM CDT Pt refused. RN notified Nilesh Segovia MD LAB BLOOD ORDERABLES Final Resu lt [facility]N ([place]) 1 [facility] [place] [address] * Phosphorus (08/04/2025 10:58 AM CDT) Phosphorus, pl 2.9 2.3 - 4.5 mg/dL Blood 08/04/2025 10:5 8 AM CDT 08/04/2025 11:03 AM CDT Nilesh Segovia MD LAB BLOOD ORDERABLES Final Resu lt Performing Organization Address City/[facility] Co de Phone Number [facility] K[facility]N ([place]) 1 [facility] [place] [address] * (ABNORMAL) Comprehensive metabolic panel (08/04/2025 10:58 AM CDT) Sodium 133(L) 135 - 145 mmol/L Potassium, pl 4.2 3.3 - 4.9 mmol/L [facility] Chloride 97 97 - 110 mmol/L [facility] ([place]) CO2 24 22 - 32 mmol/L [facility] Anion gap 12 2 - 15 mmol/L [facility] ([place]) BUN 20 6 - 25 mg/dL [facility] ([place]) Creatinine 1.04 0.60 - 1.10 mg/dL [facility] ([place]) Glucose 72 70 - 199 mg/dL [facility] ([place]) Comment: Interpretive Data Fasting glucose >/= 126 mg/dl is diagnostic for diabetes. Fasting is defined as no caloric intake [...] Calcium 9.1 8.5 - 10.3 mg/dL [facility] ([place]) Bilirubin, total 4.5(H) 0.1 - 1.2 mg/dL [facility] ([place]) Protein, pl 6.9 6.5 - 8.5 g/dL [facility] ([place]) Albumin 3.6 3.5 - 5.0 g/dL [facility] ([place]) Alk phos 365(H) 40 - 130 Units/L [facility] ([place]) ALT 35 7 - 45 Units/L [facility] ([place]) AST 58(H) 10 - 45 Units/L [facility] ([place]) Blood 08/04/2025 10:5 8 AM CDT 08/04/2025 11:03 AM CDT Narrative [facility] ([place]) - 08/04/2025 11:30 AM CDT Pt refused. RN notified us Nilesh Segovia MD LAB BLOOD ORDERABLES Final Resu lt [facility] ([place]) 1 [facility] Department [place] [address] * (ABNORMAL) Pro B-type natriuretic peptide (08/04/2025 10:53 AM CDT) NT-proBNP 3,251(H) <=300 pg/mL Comment: Interpretive Comments: A. Dyspnea in Acute Care Setting All Ages: < 300 pg/ml, acute heart failure unlikely. < 50 yrs: 300 - 450 pg/ml, further investigation warranted. > 450 pg/ml, acute heart failure likely. 50 - 74 yrs: 300 - 900 pg/ml, further investigation warranted. > 900 pg/ml, acute heart failure likely . > or = 75 yrs: 450 - 1800 pg/ml, further investigation warranted. > 1800 pg/ml, acute heart failure likely. B. Non-acute Setting < 75 yrs < 125 pg/ml, rules out heart failure. > or = 125 pg/ml, further investigation warranted. > or = 75 yrs < 450 pg/ml, rules out heart failure. > or = 450 pg/ml, further investigation [...] Interpretive Data Last Revised Date: 2018. Blood 08/04/2025 10:5 3 AM CDT 08/04/2025 10:56 AM CDT us Felix Gonzales MD LAB BLOOD ORDERABLES Final Re sult Performing Organization Address [facility]/ZIP Co de Phone Number [facility]IDE KAHN ([place]) 1 [facility] [place] [address] * (ABNORMAL) Osmolality, blood (08/04/2025 10:53 AM CDT) Osmo 270(L) 275 - 300 mOsm/kg Comment:Testing performed by : [facility], 1 [place]., [address] Blood 08/04/2025 10:5 3 AM CDT 08/04/2025 7:05 PM CDT Narrative [facility]N ([place]) - 08/04/2025 7:18 PM CDT Pt refused. RN notified us Nilesh Segovia MD LAB BLOOD ORDERABLES Final Resu lt Performing Organization Address [facility]/ZIP Co de Phone Number [facility]IDE KAHN ([place]) 1 [facility] Department [place] [address] * Magnesium (08/04/2025 10:53 AM CDT) Magnesium 2.0 1.4 - 2.5 mg/dL Blood 08/04/2025 10:5 3 AM CDT 08/04/2025 10:56 AM CDT Narrative [facility] KAHN ([place]) - 08/04/2025 11:25 AM CDT Pt refused. RN notified us Cinthya Rankin MD LAB BLOOD ORDERABLES Final Resul t [facility] ([place]) 1 [facility] [place] [address] * POCT glucose (08/04/2025 6:55 AM CDT) Glucose, POC 90 70 - 199 mg/dL Blood 08/04/2025 6:55 AM CDT 08/04/2025 6:55 AM CDT us Nilesh Segovia MD LAB POCT ORDERABLES - DEVICE Fi nal Result Performing Organization Address City/[facility]/ZIP Co de Phone Number [facility] KAHN ([place]) 1 [facility] [place] [address] * POCT glucose (08/04/2025 2:25 AM CDT) Glucose, POC 133 70 - 199 mg/dL Blood 08/04/2025 2:25 AM CDT 08/04/2025 2:25 AM CDT Nilesh Segovia MD LAB POCT ORDERABLES - DEVICE Fi nal Result [facility] KAHN ([place]) 1 [facility] [place] [address] * XR Chest 1 Vw Portable (08/03/2025 10:30 PM CDT) Anatomical Region Laterality Modality Body, Chest N/A Computed Radiogr aphy 08/03/2025 10:3 8 PM CDT Impressions 08/03/2025 10:38 PM CDT FINDINGS/IMPRESSION: Lungs: Minor infiltrates are questioned. No consolidation or effusion is seen. Mediastinum: The heart appears to be massively enlarged. .. Skeletal: The skeletal structures appear unremarkable. Electronically signed by: Víctor Santos M.D. Narrative 08/03/2025 10:38 PM CDT MEDICAL RECORDS NUMBER: [id number] PROCEDURE: XR CHEST 1 VIEW DATE: 08/03/2025 9:50 PM HISTORY: 64 years old Female. CHF WITH LOW EJECTION FRACTION Views:1 COMPARISON: 02/23/2025 Procedure Note Víctor Santos MD - 08/03/2025 MEDICAL RECORDS NUMBER: [id number] PROCEDURE: XR CHEST 1 VIEW DATE: 08/03/2025 9:50 PM HISTORY: 64 years old Female. CHF WITH LOW EJECTION FRACTION Views:1 COMPARISON: 02/23/2025 IMPRESSION: FINDINGS/IMPRESSION: Lungs: Minor infiltrates are questioned. No consolidation or effusion is seen. Mediastinum: The heart appears to be massively enlarged. .. Skeletal: The skeletal structures appear unremarkable. Electronically signed by: Víctor Santos M.D. Azeem Gomez MD IMG XR PROCEDURES Final Res ult * ECG 12 lead (08/03/2025 10:17 PM CDT) 08/03/2025 10:1 7 PM CDT Narrative [facility] - 08/05/2025 8:30 AM CDT Vent Rate: 92 bpm RR Interval: 649 msec NV Interval: 0 msec QRS Duration: 117 msec QT Interval: 415 msec QTC Interval: 465 msec P-R-T [place]: [id number] - 122 - -37 degrees IMPRESSION: ATRIAL FIBRILLATION LOW QRS VOLTAGE [QRS DEFLECTION < 0.5/1.0 mV IN LIMB/CHEST LEADS] ANTEROLATERAL MYOCARDIAL INFARCTION , PROBABLY OLD [40+ ms Q WAVE IN I/aVL/V3- V6] ABNORMAL ECG NO CHANGE FROM PREVIOUS TRACING NOTED Electronically Signed By: Antonio Carlos MD Azeem Gomez MD ECG ORDERABLES Final Resul t [facility] * (ABNORMAL) eGFR (08/03/2025 10:08 PM CDT) eGFR 53(L) >=60 mL/min/1. 73 m2 Comment: Interpretive Data [...] interpretive data was last reviewed 2021. Blood 08/03/2025 10:0 8 PM CDT 08/03/2025 10:12 PM CDT us Azeem Gomez MD LAB BLOOD ORDERABLES Final Result [facility]IDE KAHN ([place]) 1 [facility] Department [place] [address] * (ABNORMAL) Differential, auto (08/03/2025 10:08 PM CDT) Neutrophil abs 3.44 1.50 - 6.50 K/cumm Imm gran abs 0.03 0.00 - 0.10 K/cumm [facility] ([place]) Lymphocyte abs 0.72(L) 0.80 - 3.30 K/cumm [facility] ([place]) Monocyte abs 0.57 0.20 - 0.80 K/cumm [facility] ([place]) Eosinophil abs 0.33 0.00 - 0.50 K/cumm [facility] ([place]) Basophil abs 0.07 0.00 - 0.10 K/cumm [facility] ([place]) Neutrophil pct 66.6 % [facility] ([place]) Comment: Interpretive Data Percent cell count reference ranges are not reported, since discordance with absolute values may lead to misinterpretation of CBC data. Current Interpretive Data was last revised on 2018. Imm gran pct 0.6 % [facility] ([place]) Comment: Interpretive Data Percent cell count reference ranges are not reported, since discordance with absolute values may lead to misinterpretation of CBC data. Current Interpretive Data was last revised on 2018. Lymphocyte pct 14.0 % [facility] ([place]) Comment: Interpretive Data Percent cell count reference ranges are not reported, since discordance with absolute values may lead to misinterpretation of CBC data. Current Interpretive Data was last revised on 2018. Monocyte pct 11.0 % [facility] ([place]) Comment: Interpretive Data Percent cell count reference ranges are not reported, since discordance with absolute values may lead to misinterpretation of CBC data. Current Interpretive Data was last revised on 2018. Eosinophil pct 6.4 % [facility] ([place]) Comment: Interpretive Data Percent cell count reference ranges are not reported, since discordance with absolute values may lead to misinterpretation of CBC data. Current Interpretive Data was last revised on 2018. Basophil pct 1.4 % [facility] ([place]) Comment: Interpretive Data Percent cell count reference ranges are not reported, since discordance with absolute values may lead to misinterpretation of CBC data. Current Interpretive Data was last revised on 2018. Blood 08/03/2025 10:0 8 PM CDT 08/03/2025 10:12 PM CDT us Azeem Gomez MD LAB BLOOD ORDERABLES Final Result [facility] ([place] 1 [facility] Department [place] [address] * (ABNORMAL) Pro B-type natriuretic peptide (08/03/2025 10:08 PM CDT) NT-proBNP 2,753(H) <=300 pg/mL Comment: Interpretive Comments: A. Dyspnea in Acute Care Setting All Ages: < 300 pg/ml, acute heart failure unlikely. < 50 yrs: 300 - 450 pg/ml, further investigation warranted. > 450 pg/ml, acute heart failure likely. 50 - 74 yrs: 300 - 900 pg/ml, further investigation warranted. > 900 pg/ml, acute heart failure likely . > or = 75 yrs: 450 - 1800 pg/ml, further investigation warranted. > 1800 pg/ml, acute heart failure likely. B. Non-acute Setting < 75 yrs < 125 pg/ml, rules out heart failure. > or = 125 pg/ml, further investigation warranted. > or = 75 yrs < 450 pg/ml, rules out heart failure. > or = 450 pg/ml, further investigation [...] Interpretive Data Last Revised Date: 2018. Blood 08/03/2025 10:0 8 PM CDT 08/03/2025 10:12 PM CDT us Azeem Gomez MD LAB BLOOD ORDERABLES Final Result [facility] [facility]) 2 [facility] Department [place] [address] * (ABNORMAL) Thyroid Function [place] (08/03/2025 10:08 PM CDT) TSH 11.70(H) 0.30 - 4.20 mcIUnit/mL Blood 08/03/2025 10:0 8 PM CDT 08/03/2025 10:12 PM CDT Azeem Gomez MD LAB BLOOD ORDERABLES Final Result [facility] ([place]) 1 [facility] [place] [address] * (ABNORMAL) CBC with auto differential (08/03/2025 10:08 PM CDT) [facility] WBC 5.16 3.80 - 9.90 K/cumm Hgb 13.5 11.9 - 15.5 g/dL [facility] ([place]) Hct 40.4 35.6 - 45.5 % [facility] ([place]) Plt 212 150 - 400 K/cumm [facility] ([place]) MPV 9.2 9.1 - 12.3 fL [facility] ([place]) RBC 3.99 3.90 - 5.20 M/cumm [facility] ([place]) MCV 101.3(H) 81.3 - 96.4 fL [facility] ([place]) MCH 33.8(H) 27.1 - 33.3 pg [facility] ([place]) MCHC 33.4 32.3 - 35.7 g/dL [facility] ([place]) RDW CV 17.2(H) 11.1 - 14.9 % [facility] ([place]) RDW SD 63.7(H) 35.7 - 48.1 fL [facility] ([place]) NRBC abs 0.00 0.00 - 0.01 K/cumm [facility] ([place]) Blood 08/03/2025 10:0 8 PM CDT 08/03/2025 10:12 PM CDT Azeem Gomez MD LAB BLOOD ORDERABLES Final Result [facility] ([place]) 1 [facility] [place] [address] * (ABNORMAL) Protime-INR (08/03/2025 10:08 PM CDT) [facility] PT 39.8(H) 10.2 - 13.5 sec [facility] ([place]) INR 3.61(H) 0.90 - 1.20 [facility] ([place]) Comment: Interpretive data Oral anticoagulant therapeutic ranges: Venous thromboembolism prophylaxis or treatment: 2.0-3.0 CARDIOLOGY Standard range: 2.0-3.0 High-intensity range: 2.5-3.5 Refer to indication-specific guidelines for appropriate target ranges for prosthetic heart valve replacement. Current interpretive data was last revised on 2019. Blood 08/03/2025 10:0 8 PM CDT 08/03/2025 10:12 PM CDT Azeem Gomez MD LAB BLOOD ORDERABLES Final Result [facility] ([place] [address] [place] [address] * (ABNORMAL) CRP (acute phase) (08/03/2025 10:08 PM CDT) [facility] CRP 24.5(H) <=10.0 mg/L Blood 08/03/2025 10:0 8 PM CDT 08/03/2025 10:12 PM CDT Azeem Gomez MD LAB BLOOD ORDERABLES Final Result [facility] ([place] [address] [place] [address] * T4, free (08/03/2025 10:08 PM CDT) [facility] Free T4 1.46 0.90 - 1.70 ng/dL Blood 08/03/2025 10:0 8 PM CDT 08/03/2025 10:12 PM CDT Narrative [facility] ([place]) - 08/04/2025 12:42 AM CDT This test was reflexed from a TSH result. Azeem Gomez MD LAB BLOOD ORDERABLES Final Result Performing Organization Address City/[facility]/ZIP Co de Phone Number [facility] ([place]) 1 [facility] [place] [address] * Magnesium (08/03/2025 10:08 PM CDT) Magnesium 2.0 1.4 - 2.5 mg/dL Blood 08/03/2025 10:0 8 PM CDT 08/03/2025 10:12 PM CDT Azeem Gomez MD LAB BLOOD ORDERABLES Final Result Performing Organization Address [facility] de Phone Number [facility] ([place]) [address] [place] [address] * (ABNORMAL) Hemoglobin A1c (08/03/2025 10:08 PM CDT) Hgb A1C 6.6(H) 4.0 - 5.6 % Estimated Average Glucose 143 mg/dL [facility] ([place]) Comment: The ADA recommends reporting an estimated Average Glucose (eAG) with all Hemoglobin A1c results using the equation derived from a study of 507 normal and diabetic adults. Minority populations were underrepresented and children were not included. (Diabetes Care 31:9963-0184, 2008). The eAG is not equivalent to a fasting glucose. Blood 08/03/2025 10:0 8 PM CDT 08/04/2025 1:36 AM CDT Nilesh Segovia MD LAB BLOOD ORDERABLES Final Resu lt Performing Organization Address City/[facility]/ZIP Co de Phone Number [facility] ([place]) 1 [facility] [place] [address] * (ABNORMAL) Creatine kinase (CK), total (08/03/2025 10:08 PM CDT) CK 202(H) 30 - 200 Units/L Blood 08/03/2025 10:0 8 PM CDT 08/03/2025 10:12 PM CDT us Azeem Gomez MD LAB BLOOD ORDERABLES Final Result [facility] ([place]) 1 [facility] Department [place] [address] * (ABNORMAL) Comprehensive metabolic panel (08/03/2025 10:08 PM CDT) Sodium 125(L) 135 - 145 mmol/L Potassium, pl 4.3 3.3 - 4.9 mmol/L [facility] Chloride 89(L) 97 - 110 mmol/L [facility] CO2 26 22 - 32 mmol/L [facility] ([place]) Anion gap 10 2 - 15 mmol/L [facility] ([place]) BUN 20 6 - 25 mg/dL [facility] Creatinine 1.16(H) 0.60 - 1.10 mg/dL [facility] Glucose 117 70 - 199 mg/dL [facility] ([place]) Comment: Interpretive Data Fasting glucose >/= 126 mg/dl is diagnostic for diabetes. Fasting is defined as no caloric intake [...] Calcium 9.0 8.5 - 10.3 mg/dL [facility] ([place]) Bilirubin, total 4.4(H) 0.1 - 1.2 mg/dL [facility] ([place]) Protein, pl 6.8 6.5 - 8.5 g/dL [facility] ([place]) Albumin 3.6 3.5 - 5.0 g/dL [facility] ([place]) Alk phos 372(H) 40 - 130 Units/L [facility] ([place]) ALT 35 7 - 45 Units/L [facility] ([place]) AST 53(H) 10 - 45 Units/L [facility] ([place]) Blood 08/03/2025 10:0 8 PM CDT 08/03/2025 10:12 PM CDT us Azeem Gomez MD LAB BLOOD ORDERABLES Final Result [facility] ([place]) [facility] Department [place] [address] * Cardiology Document Scan (07/23/2025 4:41 PM CDT) Anatomical Region Laterality Modality Other Annie Block NP CV CARDIAC SERVICES PROCEDUR ES Final Result * Cardiology Document Scan (07/22/2025 4:39 PM CDT) Anatomical Region Laterality Modality Other Annie Block NP CV CARDIAC SERVICES PROCEDUR ES Final Result * (ABNORMAL) Hepatitis panel, acute Blood (02/24/2025 11:49 AM CDT) Hep A IgM Nonreactive Nonreactive Hep B core IgM Nonreactive Nonreactive [facility] Hep C Ab Reactive(A) Nonreactive [facility] Comment: Reactive for HCV antibodies. This may represent current or past HCV infection. Supplemental molecular testing will be automatically performed to determine current infection status in accordance with current CDC screening recommendations. Current interpretive data was last revised on 22 HepBsAg Nonreactive Nonreactive [facility] Blood 02/24/2025 11:4 9 AM CDT 02/24/2025 12:17 PM CDT Geo Subramanian MD PhD LAB MICROBIOLOGY - GENERAL ORDERABLES Final Result [facility] Department [place] [address] * (ABNORMAL) Lipid panel (02/24/2025 11:49 AM [...] revised on 2018. Triglycerides 70 <=149 mg/dL [facility] Comment: Interpretive Data Ages < or [...] revised on 2018. HDL 16(L) >=40 mg/dL [facility] Comment: Interpretive Data Ages < or [...] 2018. LDL, calculated 73 <=129 mg/dL [facility] Comment: Interpretive Data Ages < or [...] revised on 2024. Non-HDL Cholesterol 88 mg/dL [facility] Comment: Interpretive Data Ages < or [...] last revised on 2018. Chol/HDL ratio [address] [facility] Blood 02/24/2025 11:4 9 AM CDT 02/24/2025 12:36 PM CDT us Geo Subramanian MD PhD LAB BLOOD ORDERABL ES Final Result [facility] Department [place] [address] * COLONOSCOPY REPORT (03/04/2017) Anatomical Region Laterality Modality Other Narrative 03/04/2017 Ordered by an unspecified provider. us Historical Provider MD AVILA PROCEDURE ORDERABLES F inal Result from Last 3 Months or Most Recently Relevant to Health Maintenance Insurance [employer] [facility] Address: [address] [address] [place] [address] [facility] [place] [place] For more information, please contact: [phone] * Full Code (Latest Code Status on File) Date Activated Date Inactivated Comments 08/04/2025 1:09 AM 08/07/2025 8:33 PM * Full Code Date Activated Date Inactivated Comments 02/23/2025 8:54 PM 03/05/2025 10:04 PM * Full Code Date Activated Date Inactivated Comments 10/12/2024 4:46 PM 10/24/2024 7:23 PM * Full Code Date Activated Date Inactivated Comments 07/07/2024 12:15 AM 08/02/2024 9:58 PM * Full Code Date Activated Date Inactivated Comments 06/11/2024 2:55 AM 06/21/2024 8:49 PM Care Teams Proc Tech Relationship Specialty Start Date End Date Oswaldo Serrano MD [address] [address] PCP - General Family Medicine 04/14/18 [place] [id number] [address] Consulting Physician Cardiology 06/08/24 Sandro Hong MD [address] [place] [address] Referring Physician Cardiology 06/21/24 Juanis Lo MD [address] [place] [address] Referring Physician Cardiology 03/29/25
--- OUTSIDE RECORDS SUMMARY | 2025-08-16 12:33 | XMS_ITS | Encounter Summary ---
Author Organization [facility] Address [address] [place] [address] Phone Care Team Providers Care Section Leader Name Role Phone Oswaldo Serrano MD Primary Care Provider [phone] Angel Crowe DPM Unavailable [phone] Mora Fritz Unavailable Unavailable Ok Jorge MD Unavailable Orlin Urbina APRN, WAREHOUSE OPERATIONS MANAGER Unavailable [phone] Reason for Visit * Reason Comments Medication Refill Encounter Details Date Type Department Care Team (Late st Contact Info) Description 12/23/2022 Refill [facility] #[address] [place] [address] Orlin Urbina APRN, WAREHOUSE OPERATIONS MANAGER [address] [place] [address] Medication Refill Social History Tobacco Use Types [...] Coronavirus/COVID-19? No / Unsure 11/25/2022 12:13 PM SUBACUTE NURSE documented as of this encounter Plan of Treatment Upcoming Encounters Date Type Department Care Team (Late st Contact Info) Description 11/18/2025 2:30 PM SUBACUTE NURSE Office Visit [facility] - Family Medicine [facility] #[address] [place] [address] Oswaldo Serrano MD #[address] [address] documented as of this encounter Visit Diagnoses Not on filedocumented in this encounter Additional Health Concerns Assessment Noted Time PHQ-9 Depression Total Score: 0 10/14/19 23 11:00 AM SUBACUTE NURSE documented as of this encounter Care Teams Section Leader Relationship Specialty Start Date End Date Oswaldo Serrano MD #[address] [address] PCP - General Family Medicine 05/19/17 Angel Crowe DPM #[address] [address] Consulting Physician Podiatry 06/16/17 Mora Fritz Behavioral Health Navigator 06/15/18 Ok Jorge MD #[address] [address] Consulting Physician Endocrinology 05/12/22 Orlin Urbina APRN, YUDI [address] [place] [address] Nurse Practitioner Advanced Practice Nurse 11/09/22 documented as of this encounter
--- OUTSIDE RECORDS SUMMARY | 2025-08-16 12:33 | XMS_ITS | Encounter Summary ---
Author Organization [facility] Address [address] [place] [address] Phone Care Team Providers Care Clinical Haematologist Name Role Phone Oswaldo Serrano MD Primary Care Provider [phone] Angel Crowe DPCiara Unavailable [phone] Mora Fritz Unavailable Unavailable Ok Jorge MD Unavailable Orlin Urbina APRN, CHRISTMAS BELL RINGER Unavailable [phone] Reason for Visit * Reason Comments Medication Refill Encounter Details Date Type Department Care Team (Late st Contact Info) Description 12/10/2020 [facility]ill [facility] - [place] [address] [place] [address] Oswaldo Serrano MD #[address] [address] Medication Refill Social History Tobacco Use Types [...] COVID-19? No / Unsure 12/13/2020 11:23 AM SEAT COVERER documented as of this encounter Miscellaneous Notes [...] days ago Subacute maxillary sinusitis [facility] - Family Medicine - Oswaldo Moreno MD 1 month ago Chest [facility] - Connor Hutchinson APN, YUDI 2 months ago Flu-like symptoms [facility] - Oswaldo Moreno MD 2 months ago Chronic joint pain [facility] - Oswaldo Moreno MD 4 months ago Diabetic polyneuropathy associated with type 2 diabetes mellitus (HCC) [facility] - Connor Hutchinson APN, CHRISTMAS BELL RINGER Upcoming Appointments Future Appointments In 5 days Ok Jorge MD [facility] - Endocrinology - [place], [facility] REFRIGERATING MACHINE OPERATOR - Recent and Past Visits Recent Visits Date Type Provider Dept 12/08/20 Telemedicine Oswaldo Serrano MD [facility] 11/07/20 Telemedicine Connor Yuan APN, YUDI [facility] 10/09/20 Office Visit Oswaldo Serrano MD [facility] 09/16/20 Telemedicine Oswaldo Serrano, MD [facility] 07/18/20 Office Visit Connor Yuan APN, CHRISTMAS BELL RINGER [facility] 07/11/20 Telemedicine Connor Yuan APN, CHRISTMAS BELL RINGER [facility] 06/09/20 Office Visit Oswaldo Serrano, MD [facility] 05/29/20 Telemedicine Oswaldo Serrano MD [facility] 04/07/20 Office Visit Connor Yuan APN, CHRISTMAS BELL RINGER [facility] [place] 03/18/20 Telemedicine Oswaldo Serrano MD [facility] Showing recent visits within past 460 days with a meds authorizing provider and meeting all other requirements Future Appointments No visits were found meeting these conditions. Showing future appointments within next 90 days with a meds authorizing provider and meeting all other requirements COVERER documented in this encounter Plan of Treatment Upcoming Encounters Date Type Department Care Team (Late st Contact Info) Description 11/18/2025 2:30 PM SEAT COVERER Office Visit [facility] Group - Family Medicine - [place] [address] [place] [address] Oswaldo Serrano MD [address] [address] documented as of this encounter Visit Diagnoses Not on filedocumented in this encounter Additional Health Concerns Infection Onset Date Last Indicated Resolved Time COVID - 19 07/28/2021 07/29/2021 08/17/2021 12:1 6 AM SEAT COVERER Assessment Noted Time PHQ-9 Depression Total Score: 2 07/18/20 20 4:26 PM CDT documented as of this encounter Care Teams Clinical Haematologist Relationship Specialty Start Date End Date Oswaldo Serrano MD #2 [facility] [address] [place] [address] PCP - General Family Medicine 05/19/17 Angel Crowe DPM #2 [facility] [address] [place] [address] Consulting Physician Podiatry 06/16/17 Mora Fritz DE Behavioral Health Navigator 06/15/18 Ok Jorge MD #2 [facility] [address] [place] [address] Consulting Physician Endocrinology 05/12/22 Orlin Urbina TALENT PROGRAM MANAGER, CHRISTMAS BELL RINGER [address] [place] [address] Nurse Practitioner Advanced Practice Nurse 11/09/22 documented as of this encounter
--- OUTSIDE RECORDS SUMMARY | 2025-08-16 12:33 | XMS_ITS | Encounter Summary ---
Author Organization [facility] Address [address] [place] [address] Phone Care Team Providers Care Student Driving Instructor Name Role Phone Oswaldo Serrano MD Primary Care Provider [phone] Angel Crowe DPCiara Unavailable [phone] Mora Fritz Unavailable Unavailable Ok Jorge MD Unavailable Orlin Urbina APRN, MANAGER [place] Unavailable [phone] Reason for Visit * Reason Comments Medication Refill Encounter Details Date Type Department Care Team (Late st Contact Info) Description 12/11/2023 Refill [facility] - [place] [address] [place] [address] Oswaldo Serrano MD #[address] [address] Medication Refill Social History Tobacco Use Types Packs/Day Years Used Date Smoking Tobacco: Never Smokeless Tobacco: Never Alcohol Use Standard Drinks/Week Comments No 0 (1 standard drink = 0.6 oz pur e alcohol) [facility] Utilities Answer Date Recorded In the [...] with SSRI for at least 6 months ER MACHINE HAND documented in this encounter Plan of Treatment Upcoming Encounters Date Type Department Care Team (Late st Contact Info) Description 11/18/2025 2:30 PM SHAPER MACHINE HAND Office Visit [facility] - Family [facility] #[address] [place] [address] Oswaldo Serrano MD #[address] [address] documented as of this encounter Visit Diagnoses Not on filedocumented in this encounter Additional Health Concerns Assessment Noted Time PHQ-9 Depression Total Score: 0 08/09/20 23 2:56 PM CDT documented as of this encounter Care Teams Student Driving Instructor Relationship Specialty Start Date End Date Oswaldo Serrano MD #[address] [address] PCP - General Family Medicine 05/19/17 Angel Crowe DPM #[address] [address] Consulting Physician Podiatry 06/16/17 Mora Fritz Behavioral Health Navigator 06/15/18 Ok Jorge MD #[address] [place] [address] [place] [address] Consulting Physician Endocrinology 05/12/22 Orlin Urbina APRN, MANAGER [place] #[address] [place] [address] Nurse Practitioner Advanced Practice Nurse 11/09/22 documented as of this encounter
--- OUTSIDE RECORDS SUMMARY | 2025-08-16 12:33 | XMS_ITS | Encounter Summary ---
Author Organization [facility] Address [address] [place] [address] Phone Care Team Providers Care Customer Relations Representative Name Role Phone Oswaldo Serrano MD Primary Care Provider [phone] Angel Crowe DPM Unavailable [phone] Mora Fritz Unavailable Unavailable Ok Jorge MD Unavailable Orlin Urbina APRN, ELECTRIC ORGAN ASSEMBLER AND CHECKER Unavailable [phone] Reason for Visit * Reason Comments Medication Refill Encounter Details Date Type Department Care Team (Late st Contact Info) Description 11/26/2020 Refill [facility] - [place] #[address] [place] [address] Connor Yuan APRN, ELECTRIC ORGAN ASSEMBLER AND CHECKER #[address] [address] Medication Refill Social History Tobacco Use Types [...] COVID-19? No / Unsure 11/28/2020 2:56 PM INSURANCE LOSS ADJUSTER documented as of this encounter Miscellaneous Notes * Telephone Encounter - Connie Gamez RN - 11/26/2020 3:08 PM CST Sent to PCP RANCE LOSS ADJUSTER * Telephone Encounter - Connie Gamez RN - 11/26/2020 3:07 PM CST Per nursing clinical judgement, provider to review and approve the medication(s) order(s) if appropriate. Last OV 11/07/20, F/U 12/08/20, Last Rx 09/11/20 4 capsules with 2 refills take 1 cap once a week Connie DASILVA Requested Prescriptions Pending Prescriptions Disp Refills ergocalciferol (VITAMIN D) 32603 UNIT Capsule [Pharmacy Med Name: VITAMIN D [...] - Family Medicine - Connor Hutchinson APN, ELECTRIC ORGAN ASSEMBLER AND CHECKER 1 month ago Flu-like symptoms [facility] - Family Medicine - Oswaldo Moreno MD 2 months ago Chronic joint pain [facility] Oswaldo Moreno MD 4 months ago Diabetic polyneuropathy associated with type 2 diabetes mellitus (HCC) [facility] - Connor Hutchinson APN, CNP 4 months ago Acute diarrhea [facility] Connor Hutchinson APN, ELECTRIC ORGAN ASSEMBLER AND CHECKER Upcoming Appointments Future Appointments In 2 days Ok Jorge MD [facility] In 1 week Oswaldo [facility]errano MD [facility] - Recent and Past Visits Recent Visits Date Type Provider Dept 11/07/20 Telemedicine Connor Yuan APN, YUDI [facility] 10/09/20 Office Visit Oswaldo Serrano MD [facility] 09/16/20 Telemedicine Oswaldo Serrano MD [facility] 07/18/20 Office Visit Connor Yuan APN, YUDI [facility] 07/11/20 Telemedicine Connor Yuan APN, YUDI [facility] 06/09/20 Office Visit Oswaldo Serrano MD [facility] [place] 05/29/20 Telemedicine Oswaldo Serrano MD [facility] 04/07/20 Office Visit Connor Yuan APN, YUDI [facility] 03/18/20 Telemedicine Oswaldo Serrano MD [facility] 12/14/19 Office Visit Merry Elliott PAC [facility] Showing recent visits within past 460 days with a meds authorizing provider and meeting all other requirements Future Appointments Date Type Provider Dept 12/08/20 Appointment Oswaldo Serrano MD [facility] Showing future appointments within next 90 days with a meds authorizing provider and meeting all other requirements RANCE LOSS ADJUSTER documented in this encounter Plan of Treatment Upcoming Encounters Date Type Department Care Team (Late st Contact Info) Description 11/18/2025 2:30 PM INSURANCE LOSS ADJUSTER Office Visit [facility] - Family [facility] #[address] [place] [address] Oswaldo Serrano MD #2 [place] [facility] [address] [place] [address] documented as of this encounter Visit Diagnoses Diagnosis Vitamin D deficiency Unspecified vitamin D deficiency documented in this encounter Additional Health Concerns Infection Onset Date Last Indicated Resolved Time COVID - 19 07/28/2021 07/29/2021 08/17/2021 12:1 6 AM INSURANCE LOSS ADJUSTER Assessment Noted Time PHQ-9 Depression Total Score: 2 07/18/20 20 4:26 PM CDT documented as of this encounter Care Teams Customer Relations Representative Relationship Specialty Start Date End Date Oswaldo Serrano MD [address] [address] PCP - General Family Medicine 05/19/17 Angel Crowe DPM #[address] [address] Consulting Physician Podiatry 06/16/17 Mora Fritz Behavioral Health Navigator 06/15/18 Ok Jorge MD [address] [address] Consulting Physician Endocrinology 05/12/22 Orlin Urbina RESOURCE ENGINEER, ELECTRIC ORGAN ASSEMBLER AND CHECKER #[address] [place] [address] Nurse Practitioner Advanced Practice Nurse 11/09/22 documented as of this encounter
--- OUTSIDE RECORDS SUMMARY | 2025-08-16 12:34 | XMS_ITS | Encounter Summary ---
Author Organization [facility] Address [address] [place] [address] Phone Care Team Providers Care Boxing Inspector Name Role Phone Oswaldo Serrano MD Primary Care Provider [phone] Angel Crowe DPCiara Unavailable [phone] Mora Fritz Unavailable Unavailable Ok Jorge MD Unavailable Orlin Urbina APRN, HATCHERY MAN Unavailable [phone] Reason for Visit * Reason Comments Medication Refill Encounter Details Date Type Department Care Team (Late st Contact Info) Description 05/27/2024 Refill [facility] - [facility] - [place] #[address] [place] [address] Oswaldo Serrano MD #[address] [address] Medication Refill Social History Tobacco Use Types Packs/Day Years Used Date Smoking Tobacco: Never Smokeless Tobacco: Never Alcohol Use Standard Drinks/Week Comments No 0 (1 standard drink = 0.6 oz pur e alcohol) [facility] Utilities Answer Date Recorded In [...] any clubs o r organizations such as religion groups, unions, fraternal or athletic groups, or [...] Score - Questions 1-9 0 07/12 [facility] - [...] st Contact Info) Description 11/18/2025 2:30 PM APPRAISER IRRIGATION TAX Office Visit [facility] - Family Medicine - [place] [address] [place] [address] Oswaldo Serrano MD #[address] [address] documented as of this encounter Visit Diagnoses Not on filedocumented in this encounter Additional Health Concerns Assessment Noted Time PHQ-9 Depression Total Score: 0 08/09/20 23 2:56 PM CDT documented as of this encounter Care Teams Boxing Inspector Relationship Specialty Start Date End Date Oswaldo Serrano MD #2 [facility] [address] [place] [address] PCP - General Family Medicine 05/19/17 Angel Crowe DPM #2 [facility] [address] [place] [address] Consulting Physician Podiatry 06/16/17 Mora Fritz [place] Behavioral Health Navigator 06/15/18 Ok Jorge MD #2 [facility] [address] [place] [address] Consulting Physician Endocrinology 05/12/22 Orlin Urbina, DESIGN RELEASE ENGINEER, HATCHERY MAN #[address] [place] [address] Nurse Practitioner Advanced Practice Nurse 11/09/22 documented as of this encounter
--- OUTSIDE RECORDS SUMMARY | 2025-08-16 12:34 | XMS_ITS | Encounter Summary ---
Author Organization [facility] Address [address] [place] [address] Phone Care Team Providers Care Postbed Stitcher Name Role Phone Oswaldo Serrano MD Primary Care Provider [phone] Angel Crowe DPCiara Unavailable [phone] Mora Fritz Unavailable Unavailable Ok Jorge MD Unavailable Orlin Urbina APRN, EXECUTIVE STAFF ASSISTANT Unavailable [phone] Reason for Visit * Reason Comments Medication Refill Encounter Details Date Type Department Care Team (Late st Contact Info) Description 04/15/2021 Refill [facility] [address] [place] [address] Oswaldo Serrano MD #[address] [address] Medication Refill Social History Tobacco [...] st Contact Info) Description 11/18/2025 2:30 PM INTERACTIVE MEDIA PROJECT MANAGER [facility] Family Medicine [facility] #[address] [place] [address] Oswaldo Serrano MD #[address] [address] documented as of this encounter Visit Diagnoses Not on filedocumented in this encounter Additional Health Concerns Infection Onset Date Last Indicated Resolved Time COVID - 19 07/28/2021 07/29/2021 08/17/2021 12:1 6 AM INTERACTIVE MEDIA PROJECT MANAGER Assessment Noted Time PHQ-9 Depression Total Score: 2 07/18/20 4:26 PM CDT documented as of this encounter Care Teams Postbed Stitcher Relationship Specialty Start Date End Date Oswaldo Serrano MD #[address] [address] PCP - General Family Medicine 05/19/17 Angel Crowe DPM #[address] [address] Consulting Physician Podiatry 06/16/17 Mora Fritz Behavioral Health Navigator 06/15/18 Ok Jorge MD #2 [facility] [address] [address] Consulting Physician Endocrinology 05/12/22 Orlin Urbina APRN, EXECUTIVE STAFF ASSISTANT #2 [facility] [place] [address] Nurse Practitioner Advanced Practice Nurse 11/09/22 documented as of this encounter
--- OUTSIDE RECORDS SUMMARY | 2025-08-16 12:34 | XMS_ITS | Encounter Summary ---
Author Organization [facility] Address [address] [place] [address] Phone Care Team Providers Care Aquaculture And Fisheries Professor Name Role Phone Oswaldo Serrano MD Primary Care Provider Angel Crowe DPM Unavailable [phone] Mora Fritz Unavailable Unavailable Ok Jorge MD Unavailable Orlin Urbina APRN, LOOM DOFFER Unavailable [phone] Reason for Visit * Reason Comments Medication Refill Encounter Details Date Type Department Care Team (Late st Contact Info) Description 05/13/2021 Refill [facility] - [place] [address] [place] [address] Ronda Pedraza APRN, LOOM DOFFER [address] [address] Medication Refill Social History Tobacco [...] Pending Prescriptions Disp Refills ergocalciferol (VITAMIN D) 15614 UNIT Capsule [Pharmacy Med Name: VITAMIN D [...] B12 deficiency [facility] - Oswaldo Moreno MD 3 months ago [facility] YUDI 4 months ago Essential hypertension [facility] Oswaldo Moreno MD 4 months ago Intractable cluster headache syndrome, unspecified chronicity pattern [facility] Upcoming Appointments Future Appointments Tomorrow Connor Yuan APN, YUDI [facility] month Ok Jorge MD [facility] CHILDCARE ATTENDANT - Recent and Past Visits Recent Visits Date Type Provider Dept 02/27/21 Office Visit Oswaldo Serrano MD [facility] 02/16/21 Office Visit Oswaldo Serrano MD [facility] 01/14/21 Office Visit Connor Yuan APN, YUDI [facility] 12/19/20 Office Visit Oswaldo Serrano MD [facility] [place] 12/18/20 Telemedicine Oswaldo Serrano MD [facility] [place] 12/08/20 Telemedicine Oswaldo Serrano MD [facility] [place] 11/07/20 Telemedicine Connor Yuan APN, YUDI [facility] 10/09/20 Office Visit Oswaldo Serrano MD [facility] 09/16/20 Telemedicine Oswaldo Serrano MD [facility] 07/18/20 Office Visit Connor Yuan APN, YUDI [facility] Showing recent visits within past 460 days with a meds authorizing provider and meeting all other requirements Future Appointments Date Type Provider Dept 05/14/21 Appointment Connor Yuan APN, YUDI [facility] Showing future appointments within next 90 days with a meds authorizing provider and meeting all other requirements documented in this encounter Plan of Treatment Upcoming Encounters Date Type Department Care Team (Late st Contact Info) Description 11/18/2025 2:30 PM AIR CONDITIONING INSTALLER SUPERVISOR Office Visit [facility] - Family [facility] [address] [place] [address] Oswaldo Serrano MD [address]2 [facility] [address] [place] [address] documented as of this encounter Visit Diagnoses Diagnosis Vitamin D deficiency Unspecified vitamin D deficiency documented in this encounter Additional Health Concerns Infection Onset Date Last Indicated Resolved Time COVID - 19 07/28/2021 07/29/2021 08/17/2021 12:1 6 AM AIR CONDITIONING INSTALLER SUPERVISOR Assessment Noted Time PHQ-9 Depression Total Score: 2 07/18/20 20 4:26 PM CDT documented as of this encounter Care Teams Aquaculture And Fisheries Professor Relationship Specialty Start Date End Date Oswaldo Serrano MD #[address] [address] PCP - General Family Medicine 05/19/17 Angel Crowe DPM [facility] [address] [place] [address] Consulting Physician Podiatry 06/16/17 Mora Fritz [place] Behavioral Health Navigator 06/15/18 Ok Jorge MD [address] [address] Consulting Physician Endocrinology 05/12/22 Orlin Urbina APRN, LOOM DOFFER [address] [place] [address] Nurse Practitioner Advanced Practice Nurse 11/09/22 documented as of this encounter
--- OUTSIDE RECORDS SUMMARY | 2025-08-16 12:34 | XMS_ITS | Encounter Summary ---
Author Organization [facility] Address [address] [place] [address] Phone Care Team Providers Care Net Programmer Name Role Phone Oswaldo Serrano MD Primary Care Provider [phone] Angel Crowe DPM Unavailable [phone] Mora Fritz Unavailable Unavailable Ok Jorge MD Unavailable Orlin Urbina APRN, REFRACTORY GRINDER OPERATOR Unavailable [phone] Reason for Visit * Reason Comments Medication Refill Encounter Details Date Type Department Care Team (Late st Contact Info) Description 02/18/2021 Refill [facility] - [place] [address] [place] [address] Connor Yuan APRN, REFRACTORY GRINDER OPERATOR #[address] [id number] Medication Refill Social History Tobacco Use Types [...] Pending Prescriptions Disp Refills ergocalciferol (VITAMIN D) 00899 UNIT Capsule [Pharmacy Med Name: VITAMIN D 50,000UNIT CAP STR] 4 Capsule 2 Sig: TAKE ONE CAPSULE BY MOUTH ONCE WEEKLY [facility] Off-Protocol Failed - 02/18/2021 1:06 PM Failed - Medication not assigned to a protocol, review manually. Passed - Valid encounter within last 12 months Past Office Visits Recent Outpatient Visits 2 days ago B12 deficiency [facility] - Oswaldo Moreno MD 1 month ago UTI symptoms [facility] - Connor Hutchinson APN, REFRACTORY GRINDER OPERATOR 2 months ago Essential hypertension [facility] - Oswaldo Moreno MD 2 months ago Intractable cluster headache syndrome, unspecified chronicity pattern [facility] Family [facility] - Oswaldo Moreno MD 2 months ago Subacute maxillary sinusitis [facility] Oswaldo Moreno MD Upcoming Appointments Future Appointments In 1 week Oswaldo Serrano MD [facility] In 2 weeks [facility], [facility] In 2 weeks Ok Jorge MD [facility] - Endocrinology [facility], [facility] STRIPE MARKER - Recent and Past Visits Recent Visits Date Type Provider Dept 02/16/21 Office Visit Oswaldo Serrano MD [facility] 01/14/21 Office Visit Connor Yuan APN, REFRACTORY GRINDER OPERATOR [facility] 12/19/20 Office Visit Oswaldo Serrano MD [facility] 12/18/20 Telemedicine Oswaldo Serrano MD [facility] 12/08/20 Telemedicine Oswaldo Serrano MD [facility] 11/07/20 Telemedicine Connor Yuan APN, REFRACTORY GRINDER OPERATOR [facility] 10/09/20 Office Visit Oswaldo Serrano MD [facility] 09/16/20 Telemedicine Oswaldo Serrano MD [facility] [place] 07/18/20 Office Visit Connor Yuan APN, REFRACTORY GRINDER OPERATOR [facility] 07/11/20 Telemedicine Connor Yuan APN, REFRACTORY GRINDER OPERATOR [facility] Showing recent visits within past [...] st Contact Info) Description 11/18/2025 2:30 PM INSULATION POWER UNIT TENDER Office Visit [facility] Family [facility] [address] [place] [address] Oswaldo Serrano MD #[address] [address] documented as of this encounter Visit Diagnoses Diagnosis Vitamin D deficiency Unspecified vitamin D deficiency documented in this encounter Additional Health Concerns Infection Onset Date Last Indicated Resolved Time COVID - 19 07/28/2021 07/29/2021 08/17/2021 12:1 6 AM INSULATION POWER UNIT TENDER Assessment Noted Time PHQ-9 Depression Total Score: 2 07/18/20 4:26 PM CDT documented as of this encounter Care Teams Net Programmer Relationship Specialty Start Date End Date Oswaldo Serrano MD #[address] [address] PCP - General Family Medicine 05/19/17 Angel Crowe DPM #[address] [address] Consulting Physician Podiatry 06/16/17 Mora Fritz [place] Behavioral Health Navigator 06/15/18 Ok Jorge MD #[address] [address] Consulting Physician Endocrinology 05/12/22 Orlin Urbina APRN, REFRACTORY GRINDER OPERATOR [address] [place] [address] Nurse Practitioner Advanced Practice Nurse 11/09/22 documented as of this encounter
--- OUTSIDE RECORDS SUMMARY | 2025-08-16 12:34 | XMS_ITS | Encounter Summary ---
Author Organization [facility] Address [address] [place] [address] Phone Care Team Providers Care Public Housing Manager Name Role Phone Oswaldo Serrano MD Primary Care Provider [phone] Angel Crowe DPCiara Unavailable [phone] Mora Fritz Unavailable Unavailable Ok Jorge MD Unavailable Orlin Urbina APRN, MANUFACTURING TECHNOLOGY PROFESSOR Unavailable [phone] Reason for Visit * Reason Comments Medication Refill Encounter Details Date Type Department Care Team (Late st Contact Info) Description 01/21/2021 Refill [facility] - [place] [address] [place] [address] Oswaldo Serrano MD #[address] [address] Medication Refill Social History Tobacco Use Types [...] RELEASE [Pharmacy Med Name: OMEPRAZOLE DR 20 MG*YAKELIN RODRIGUEZ] 90 Capsule 3 Sig: TAKE ONE CAPSULE BY MOUTH DAILY Gastroenterology: Antiulcer - Proton Pump Inhibitors Passed - 01/21/2021 12:27 PM Passed - Valid encounter within last 12 months Past Office Visits Recent Outpatient Visits 1 week ago UTI symptoms [facility] - Connor Hutchinson APN, MANUFACTURING TECHNOLOGY PROFESSOR 1 month ago Essential hypertension [facility] - Oswaldo Moreno MD 1 month ago Intractable cluster headache syndrome, unspecified chronicity pattern [facility] Family Medicine - Oswaldo Moreno MD 1 month ago Subacute maxillary sinusitis [facility] Family Medicine - Oswaldo Moreno MD 2 months ago Chest congestion [facility] Family [facility] - Connor Hutchinson APN, MANUFACTURING TECHNOLOGY PROFESSOR Upcoming Appointments Future Appointments In [address] [place], [facility] In 1 week Oswaldo Serrano MD [facility] In 3 weeks Ok Jorge MD [facility] - Endocrinology - [facility] FLOOR CARE SPECIALIST - Recent and Past Visits Recent Visits Date Type Provider Dept 01/14/21 Office Visit Connor Yuan APN, YUDI [facility] 12/19/20 Office Visit Oswaldo Serrano MD [facility] 12/18/20 Telemedicine Oswaldo Serrano MD [facility] 12/08/20 Telemedicine Oswaldo Serrano MD [facility] 11/07/20 Telemedicine Connor Yuan APN, MANUFACTURING TECHNOLOGY PROFESSOR [facility] 10/09/20 Office Visit Oswaldo Serrano MD [facility] 09/16/20 Telemedicine Oswaldo Serrano MD [facility] 07/18/20 Office Visit Connor Yuan APN, MANUFACTURING TECHNOLOGY PROFESSOR [facility] 07/11/20 Telemedicine Connor Yuan APN, [...] Outpatient Visits 1 week ago UTI symptoms [facility] - Connor Hutchinson APN, MANUFACTURING TECHNOLOGY PROFESSOR 1 month ago Essential hypertension [facility] - Oswaldo Moreno MD 1 month ago Intractable cluster headache syndrome, unspecified chronicity pattern [facility] Oswaldo Moreno MD 1 month ago Subacute maxillary sinusitis [facility] Family [facility] - Oswaldo Moreno MD 2 months ago Chest congestion [facility] Medical [facility] Family [facility] - Connor Hutchinson APN, MANUFACTURING TECHNOLOGY PROFESSOR Upcoming Appointments Future Appointments In [address], [facility] In 1 week Oswaldo Serrano MD [facility] Medical [facility] - [facility] weeks Ok Jorge MD [facility] Medical [facility] FLOOR CARE SPECIALIST - Recent and Past Visits Recent [...] Office Visit Connor Yuan APN, YUDI [facility] [place] 07/11/20 Telemedicine Connor Yuan APN, YUDI [facility] [...] st Contact Info) Description 11/18/2025 2:30 PM 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 Office Visit [facility] [address] [place] [address] Oswaldo Serrano MD #2 [facility] [address] [place] [address] documented as of this encounter Visit Diagnoses Not on filedocumented in this encounter Additional Health Concerns Infection Onset Date Last Indicated Resolved Time COVID - 19 07/28/2021 07/29/2021 08/17/2021 12:1 6 AM 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 Assessment Noted Time PHQ-9 Depression Total Score: 2 07/18/20 20 4:26 PM CDT documented as of this encounter Care Teams Public Housing Manager Relationship Specialty Start Date End Date Oswaldo Serrano MD [address] [address] PCP - General Family Medicine 05/19/17 Angel Crowe DPM #2 [facility] [address] [place] [address] Consulting Physician Podiatry 06/16/17 Mora Fritz Behavioral Health Navigator 06/15/18 Ok Jorge MD [address] [address] Consulting Physician Endocrinology 05/12/22 Orlin Urbina MEDICAL UNDERWRITER, MANUFACTURING TECHNOLOGY PROFESSOR [address] [place] [address] Nurse Practitioner Advanced Practice Nurse 11/09/22 documented as of this encounter
[2025-08-16 12:51] LABS: Alveolar/Arterial O2 Gradient 56.9 mmHg; Fractional Inspired Oxygen 28 %; HCO3 ABG 25.2 mEq/l (22.0-26.0); Oxygen Content ABG 16.3 %vol (16.0-22.0); Oxygen Saturation ABG 96.7 % (95.0-100.0); PCO2 ABG 44.4 mmHg (35.0-45.0); PO2 ABG 90.4 mmHg (80.0-100.0); PO2 FiO2 Ratio Arterial Blood 3.23 %
[2025-08-16 12:53] LABS: Liters per Minute 2.0 LPM; Modified Allen's Test Pass; Site Drawn RIGHT RADIAL
[2025-08-16 14:03] LABS: NT Pro B Type Natriuretic Pept 2880 pg/mL (19.9-100)
[2025-08-16] MEDS: FUROSEMIDE INJ 40 MG/4 ML VIAL IV PUSH (14:11)
[2025-08-16] MEDS: diazePAM INJ (*CRX) 10 MG/2 ML SYRINGE 2.5 MG IV PUSH (14:42)
--- NOTE | 2025-08-16 14:43 | PC.NURSE ---
Private area inspected by Dr Dutton after family reporting that they had noticed blood ---none visualized-no cuts/abrasions noted
--- NOTE | 2025-08-16 14:45 | ED.GENADULT ---
HPI - General Adult General Chief complaint: Unspecified Stated complaint: L breast, LLQ swelling Time Seen by Provider: 08/16/25 12:08 Source: patient and family Mode of arrival: EMS Limitations: altered mental status History of Present Illness HPI narrative: 64-year-old with a history of hypertension CHF, DM, cirrhosis of the liver was brought in from shelter with the complaints of not feeling well, shortness of breath, blood in the urine for past few days. Family who is at bedside states that she was recently discharged from [facility] with a complains of CHF. Patient family also reported that she had an echocardiogram done few months ago which showed ejection fraction of 25%. Patient presently denies any fever or chills. No history of nausea, vomiting or abdominal pain. Onset (ago): day(s) (2) Radiation: non-radiation Severity: moderate Pain Consistency: constant Relieving factors: none Exacerbating factors: none Associated symptoms: denies other symptoms Related Data Home Medications ?Medication ?Instructions ?Recorded ?Confirmed ?Last Taken ?Type cholecalciferol (vitamin D3) 125 5,000 unit PO DAILY 02/23/25 07/21/25 03/05/25 History mcg (5,000 unit) tablet apixaban 5 mg tablet (Eliquis) 5 mg PO BID 06/08/25 07/21/25 Unknown History ascorbic acid (vitamin C) 500 mg 500 mg PO DAILY 06/08/25 07/21/25 Unknown History tablet (Vitamin C) buspirone 10 mg tablet 10 mg PO BID 06/08/25 07/21/25 Unknown History vibegron 75 mg tablet (Gemtesa) 75 mg PO DAILY 06/08/25 07/21/25 Unknown History cefadroxil 500 mg capsule 1,000 mg PO Q12H 06/10/25 07/21/25 Unknown History cyanocobalamin (vitamin B-12) 500 500 mcg PO DAILY 06/10/25 07/21/25 Unknown History mcg tablet (B-12 DOTS) metoprolol succinate 25 mg 25 mg PO DAILY 07/21/25 07/21/25 Unknown History tablet,extended release 24 hr spironolactone 25 mg tablet 12.5 mg PO DAILY 07/21/25 07/21/25 Unknown History Allergies Allergy/AdvReac Type Severity Reaction Status Date / Time Sulfa (Sulfonamide Allergy Mild RASH Verified 08/16/25 11:03 Antibiotics) certain metals Allergy Unknown Unknown Uncoded 03/05/25 23:36 Review of Systems Review of Systems: All systems reviewed & are unremarkable except as noted in HPI and below Constitutional: Constitutional: Reports no additional constitutional complaints Eyes: Eyes: Reports no additional eye complaints ENT: Reports system reviewed and no additional complaints, except as documented Cardiovascular: Cardiovascular: Reports no additional cardiovascular complaints Respiratory: Respiratory: Reports as per HPI Gastrointestinal: Gastrointestinal: Reports no additional gastrointestinal complaints Musculoskeletal: Musculoskeletal: Reports no additional musculoskeletal complaints [facility] Past Medical History Medical History Anxiety Nonischemic cardiomyopathy CHF due to valvular disease Cirrhosis Aicd lead infection Chronic hyponatremia MSSA bacteremia Chronic anticoagulation Chronic atrial fibrillation 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 Her sisters come by 3 times a day. Her sisters go home at night while the patient is in bed to sleep. Code status: Full code Years smoked: 3 Alcohol intake: never Substance use: never Substance use type: does not use Do You Feel Safe in your Home?: Yes Lack of Transportation: No Lack of Food: Never True Current Housing: I Have Housing Concerned About Future Housing: No Difficulty Paying Gas/Electric Bills: No Difficulty Paying for Meds: No Currently Unemployed: No Education: Grade School Difficulty w/ Childcare or Family Care: No Gender identity (if verbalized by the patient): Female Spiritual care concerns: No Exam Narrative: GENERAL: ill appearing ,morbidly obese , and in no acute distress. HEAD: Normocephalic, atraumatic. EYES: PERRLA and EOMI. ENT: Nares clear, no rhinorrhea or epistaxis. Mucous membranes moist. NECK: Supple. CHEST: Decreased respiratory effort otherwise clear on auscultation HEART: Regular rate and rhythm. No murmur heard. Normal peripheral pulses. ABDOMEN: Soft, nontender, nondistended, normal active bowel sounds. EXTREMITIES: Normal range of motion. No edema. SKIN: Warm, dry, no rash. NEURO: No focal deficits. Alert and oriented x3. PSYCH: Normal mood and affect. Course Course Emergency Course: Informed patient family about her lab work, EKG and chest x-ray findings. No significant change in lab work however she does have uti , and her blood pressure is soft , will admit her for IV ABX and diuresis Vital Signs Vital signs: Vital Signs Temperature 36.4 C 08/16/25 10:35 Pulse Rate 88 08/16/25 10:35 Respiratory Rate 16 08/16/25 10:35 Blood Pressure 76/53 L 08/16/25 10:35 Pulse Oximetry 100 08/16/25 10:35 Oxygen Delivery Room Air 08/16/25 10:35 Temperature 36.4 C 08/16/25 10:35 Pulse Rate 88 08/16/25 10:35 Respiratory Rate 22 H 08/16/25 11:02 Blood Pressure 76/53 L 08/16/25 10:35 Pulse Oximetry 100 08/16/25 11:53 Oxygen Delivery Nasal Cannula 08/16/25 11:53 Oxygen Flow Rate 2 08/16/25 11:53 Medical Decision Making [facility] Narrative Medical decision making narrative: 64-year-old with multiple medical problems here with shortness of breath, not feeling well and also blood in the urine she is in obvious CHF wll give her IV lasix. Differential Diagnosis Differential Diagnosis: chf .encephalopathy . Medical Records Medical records reviewed: Yes I reviewed the external patient's medical records. Vital Signs Vital Signs: Vital Signs Temperature 36.4 C 08/16/25 10:35 Pulse Rate 88 08/16/25 10:35 Respiratory Rate 16 08/16/25 10:35 Blood Pressure 76/53 L 08/16/25 10:35 Pulse Oximetry 100 08/16/25 10:35 Oxygen Delivery Room Air 08/16/25 10:35 Temperature 36.4 C 08/16/25 10:35 Pulse Rate 88 08/16/25 10:35 Respiratory Rate 22 H 08/16/25 11:02 Blood Pressure 76/53 L 08/16/25 10:35 Pulse Oximetry 100 08/16/25 11:53 Oxygen Delivery Nasal Cannula 08/16/25 11:53 Oxygen Flow Rate 2 08/16/25 11:53 Lab Data 08/16/25 10:56 08/16/25 10:56 Labs: Lab Results 08/16/25 08/16/25 08/16/25 Range/Units 10:46 10:56 13:31 WBC 4.3 L (4.5-10.0) K/mm3 RBC 3.32 L (4.2-5.4) M/mm3 Hgb 11.5 L (12.0-15.0) g/dL Hct 35.6 L (37.0-47.0) % MCV 107.2 H (80-100) fl MCH 34.6 H (26-34) pg MCHC 32.3 (32-36) g/dl RDW 17.5 H (11.5-14.5) % Plt Count 217 (150-375) k/mm3 MPV 9.5 (7.4-10.4) fl Immature Gran % (Auto) 0.5 (0-0.5) % Neut % (Auto) 67.0 (45.5-73.1) % Lymph % (Auto) 13.0 L (18.3-44.2) % Moffat % (Auto) 10.0 H (2.6-8.5) % Eos % (Auto) 7.4 H (0-4.4) % Baso % (Auto) 2.1 H (0.2-1.2) % Lymph # (Auto) 0.56 L (0.9-3.2) K/mm3 Moffat # (Auto) 0.4 (0.1-0.6) K/mm3 Eos # (Auto) 0.3 (0-0.3) K/mm3 Baso # (Auto) 0.1 (0.0-0.1) K/mm3 Abs Immat Gran (auto) 0.02 (0.00-0.031) K/mm3 Absolute Neuts (auto) 2.9 (1.3-6.7) K/mm3 Absolute Nucleated RBC 0.000 (0.0-0.012) K/mm3 Band Neutrophils % Not Reportable Nucleated RBC % 0.0 (0.0-0.2) % Platelet Estimate Adequate (Adequate) Macrocytosis 1+ (NORMAL) Schistocytes None seen PT 18.5 H (11.1-14.7) Seconds INR 1.5 APTT 36.0 (22.3-36.8) Seconds Sodium 128 L (137-145) mmol/L Potassium 5.2 H (3.4-5.0) mmol/L Chloride 95 L (98-107) mmol/L Carbon Dioxide 29 (22-30) mmol/L Anion Gap 4 (4-12) mmol/L BUN 32 H (7-17) mg/dL Creatinine 1.07 H (0.7-1.0) mg/dL Estim Creat Clear Calc 66 ml/min Estimated GFR 52 L (59 - ) Glucose 142 H (65-110) mg/dL POC Capillary Glucose 103 (65-105) mg/dl Lactic Acid 1.5 (0.7-2.0) mmol/L Calcium 8.7 (8.4-10.2) mg/dL Total Bilirubin 3.3 H (0.2-1.3) mg/dL AST 58 H (14-36) U/L ALT 28 (6-35) U/L Alkaline Phosphatase 411 H (38-126) U/L NT-Pro-B Natriuret Pep 2880 H (19.9-100) pg/mL Total Protein 7.3 (6.3-8.2) g/dL Albumin 3.4 L (3.5-5.1) g/dL Lipase 23 (23-300) U/L Urine Color Dark yellow (Yellow) Urine Appearance Cloudy H (Clear) Urine pH 5.5 (5.0-9.0) Ur Specific [place] 1.019 (1.001-1.035) Urine Protein 1+ H (Negative) mg/dL Urine Glucose (UA) Negative (Negative) mg/dL Urine Ketones Trace H (Negative) mg/dL Ur Blood (Man) 2+ H (Negative) Urine Nitrate Positive H (Negative) Urine Bilirubin 1+ H (Negative) Urine Urobilinogen 1.0 (<2.0) mg/dL Leukocyte Esterase Rfl 3+ H (Negative) LETICIA/UL Urine RBC 21-50 H (0-2) /hpf Urine WBC >100 H (0-3) /hpf Ur Squamous Epith Cells Occasional (Few) /hpf Urine Bacteria 4+ H /hpf Urine Casts 3-5 ABG Data ABG results: 08/16/25 12:46 Puncture Site Right radial ABG pH 7.372 ABG pCO2 44.4 ABG pO2 90.4 ABG PO2/FiO2 Ratio 3.23 ABG HCO3 25.2 ABG O2 Saturation 96.7 ABG O2 Content 16.3 ABG Base Excess -0.2 A-a Gradient 56.9 Oxyhemoglobin 95.5 Total Hemoglobin 12.1 O2 Delivery Device Nasal cannula O2 Liters/Min 2.0 FiO2 28 Imaging Data Radiologist's impression: ITS Impressions Chest X-Ray 08/16/25 13:23 Impression: CHF Discharge Plan Discharge Clinical Impression: CHF (congestive heart failure) Qualifiers: Heart failure type: systolic Heart failure chronicity: acute on chronic Qualified Code(s): I50.23 - Acute on chronic systolic (congestive) heart failure UTI (urinary tract infection) Qualifiers: Urinary tract infection type: site unspecified Hematuria presence: with hematuria Qualified Code(s): N39.0 - Urinary tract infection, site not specified Patient Disposition: Still a Patient Condition: Stable Time of Disposition: 17:02
[2025-08-16] MEDS: cefTRIAXone 1 GM in SODIUM CHLORIDE 0.9% IV 50 ML 100 ML IVPB (15:32)
--- NOTE | 2025-08-16 15:53 | P.HP_ITS ---
H&P: HPI History of Present Illness Date/Time: 08/16/25 15:53 Chief Complaint: Altered mental status Narrative: 64-year-old female past medical history of CHF, hypertension, diabetes, liver cirrhosis from a long-term with altered mental status. Per the family the patient was recently at [facility] for CHF had ejection fraction 25%. Will try to get the records. If not we will do echocardiogram tomorrow. Patient is unable to give any details. On assessment she is highly agitated, pulling up blankets, tele leads, IV. With cyanotic lips. She has severe generalized edema. Patient was transferred to [facility] without oxygen and was hypoxic with blue lips upon arrival to the floor. Her pressure was 60s over 40s and she was cold to the touch. Patient was alert. Once oxygen was placed on patient she recovered nicely, no medications were given. But she was transferred to IMU for closer monitoring. Lab work in the ED shows white count of 4.3, hemoglobin of 11.5, INR 1.5, ABG within normal limits, sodium of 128, potassium of 5.2, creatinine of 1.07, BUN of 32, bilirubin of 3.3, AST 58, alkaline phos 411, proBNP 2880, UA is dark yellow cloudy, positive nitrates, 3+ leukocyte esterase over 100 wbc's, 4+ bacteria. Chest x-ray shows pulmonary edema. EKG shows atrial fibrillation rate of 60 Review of Systems Review of Systems: 12 systems were reviewed and are negativ e except for as per HPI. 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 Her sisters come by 3 times a day. Her sisters go home at night while the patient is in bed to sleep. Code status: Full code Years smoked: 3 Smoking status: Unknown if ever smoked Alcohol intake: unknown Substance use: unknown Substance use type: does not use Do You Feel Safe in your Home?: Yes Lack of Transportation: No Lack of Food: Never True Current Housing: I Have Housing Concerned About Future Housing: No Difficulty Paying Gas/Electric Bills: No Difficulty Paying for Meds: No Currently Unemployed: No Education: Grade School Difficulty w/ Childcare or Family Care: No Gender identity (if verbalized by the patient): Female Spiritual care concerns: No Meds Home Medications and Allergies Home Medications ?Medication ?Instructions ?Recorded ?Confirmed ?Type cholecalciferol (vitamin D3) 125 5,000 unit PO DAILY 0 02/23/25 08/16/25 History mcg (5,000 unit) tablet acetaminophen 500 mg capsule 500 mg PO Q6H PRN pain (s [place] 03/14/25 08/16/25 Rx score 1-3) or fever. #90 caps albuterol sulfate 90 mcg/actuation 2 puff inhalation Q 6H PRN 03/14/25 08/16/25 Rx aerosol inhaler shortness of breath or wheez ing #2 grams docusate sodium 100 mg capsule 100 mg PO BID #60 caps 03/14/25 08/16/25 Rx escitalopram oxalate 10 mg tablet 10 mg PO DAILY #30 t abs 03/14/25 08/16/25 Rx ferrous sulfate 325 mg (65 mg 325 mg PO DAILY #30 tabs 03/14/25 08/16/25 Rx iron) tablet (FeroSul) fluticasone propionate 50 1 spray intranasal DAILY PRN 03/14/25 08/16/25 Rx mcg/actuation nasal allergy symptoms/Rhinitis. # 10 mL spray,suspension (Flonase Allergy Relief) hydroxyzine HCl 25 mg tablet 25 mg PO Q4H PRN itching or 03/14/25 08/16/25 Rx anxiety. #30 tabs levothyroxine 75 mcg tablet 75 mcg PO QAM #30 tabs 03/0308/16/25 Rx lidocaine 4 % topical patch 1 patch topical DAILY PRN back 03/14/25 08/16/25 Rx (Aspercreme (lidocaine)) pain. #30 ea magnesium oxide 400 mg (241.3 mg 400 mg PO DAILY #30 t abs 03/14/25 08/16/25 Rx magnesium) tablet nortriptyline 10 mg capsule 10 mg PO HS #30 caps 03/1408/16/25 Rx omeprazole 20 mg capsule,delayed 20 mg PO DAILY #30 ca ps 03/14/25 08/16/25 Rx release polyethylene glycol 3350 17 gram 17 g PO DAILY PRN con stipation #30 03/14/25 08/16/25 Rx oral powder packet (Miralax) ea sacubitril 24 mg-valsartan 26 mg 0.5 tablet PO BID #60 tabs 03/14/25 08/16/25 Rx tablet (Entresto) apixaban 5 mg tablet (Eliquis) 5 mg PO BID 06/08/25 History ascorbic acid (vitamin C) 500 mg 500 mg PO DAILY 06/0808/16/25 History tablet (Vitamin C) buspirone 10 mg tablet 10 mg PO BID 06/08/25 History vibegron 75 mg tablet (Gemtesa) 75 mg PO DAILY 5 08/16/25 History cyanocobalamin (vitamin B-12) 500 500 mcg PO DAILY 11/0308/16/25 History mcg tablet (B-12 DOTS) metoprolol succinate 25 mg 25 mg PO DAILY 07/21/2505/03 History tablet,extended release 24 hr insulin glargine 100 unit/mL (3 10 unit (0.1 mL) subcu t QHS #15 mL 08/02/25 08/16/25 Rx mL) subcutaneous pen (Lantus Solostar U-100 Insulin) furosemide 20 mg tablet 40 mg PO BID 08/16/25 History insulin lispro 100 unit/mL 5 unit subcut USEASDIRECTD 08/16/25 08/16/25 History subcutaneous solution (Humalog U-100 Insulin) quetiapine 25 mg tablet 25 mg PO TID 08/16/25 History Allergies Allergy/AdvReac Type Severity Reaction Status Date / Time Sulfa (Sulfonamide Allergy Mild RASH Verified 08/16/25 22:15 Antibiotics) certain metals Allergy Unknown Unknown Uncoded 03/05/25 23:36 Vital Signs Vital Signs - 24 hr 08/16/25 10:35 08/16/25 11:02 08/16/25 11:53 Temperature 97.6 F Pulse Rate 88 Respiratory Rate 16 22 H Blood Pressure 76/53 L Pulse Oximetry 100 100 Oxygen Delivery Room Air Nasal Cannula Oxygen Flow Rate 2 08/16/25 14:49 Temperature Pulse Rate 77 Respiratory Rate 20 Blood Pressure 90/71 L Pulse Oximetry 97 Oxygen Delivery Oxygen Flow Rate Exam Narrative: General: Chronically-ill mild distress HEENT: normocephalic, atraumatic. Mucous membranes moist. EOMI, PERRLA, bilateral sclera anicteric, no conjunctival injection. Neck supple without JVD, lymphadenopathy, or bruit. Respiratory: Diminished Cardiovascular: Regular. No murmurs, rubs, or clicks. PMI is nondisplaced, c apillary refill less than 3 second. Abdomen: Soft, round, no pulsatile masses, nondistended and nontender. No rebound, no guarding. Bowel sounds present to all four quadrants. No high pitch or tinkling sounds, resonant to percussion. Extremities: No cyanosis, clubbing,. 4+ generalized edema Neuro: Alert and orientated x 2. PERRLA. Cranial nerves 2-12 intact without focal deficit. Skin: Warm, dry, and intact, without rash, erythema, or lesion. Psych: p confused H&P: Results Labs Labs: Short CBC 08/16/25 Range/Units 10:56 WBC 4.3 L (4.5-10.0) K/mm3 Hgb 11.5 L (12.0-15.0) g/dL Hct 35.6 L (37.0-47.0) % Plt Count 217 (150-375) k/mm3 BMP 08/16/25 10:56 Sodium 128 L Potassium 5.2 H Chloride 95 L Carbon Dioxide 29 BUN 32 H Creatinine 1.07 H Glucose 142 H Calcium 8.7 Liver Function 08/16/25 Range/Units 10:56 Total Bilirubin 3.3 H (0.2-1.3) mg/dL AST 58 H (14-36) U/L ALT 28 (6-35) U/L Alkaline Phosphatase 411 H (38-126) U/L Albumin 3.4 L (3.5-5.1) g/dL Urine 08/16/25 Range/Units 10:46 Urine Color Dark yellow (Yellow) Urine Appearance Cloudy H (Clear) Urine pH 5.5 (5.0-9.0) Ur Specific Ola 1.019 (1.001-1.035) Urine Protein 1+ H (Negative) mg/dL Urine Glucose (UA) Negative (Negative) mg/dL Assessment and Plan Assessment and plan (1) CHF exacerbation: Qualifiers: Heart failure type: combined systolic and diastolic Qualified Code(s): I50.43 - Acute on chronic combined systolic (congestive) and diastolic (congestive) heart failure Code(s): I50.9 - Heart failure, unspecified Status: Acute Assessment and Plan: Lasix given in ED Echocardiogram from 02/22/2025 EF 40-45%, reported from the ED that she recently had a echocardiogram at [facility] that showed a EF of 25% will request records Will give patient albumin, goal is to give more Lasix later tonight Due to patient being hypertensive will hold off on Lasix tonight ABG during soft rapid was within normal limits surprisingly Cardiology consulted Fluid restriction (2) Hyponatremia: Code(s): E87.1 - Hypo-osmolality and hyponatremia Status: Acute Assessment and Plan: Patient receiving Lasix BMP in the morning (3) Hyperkalemia: Code(s): E87.5 - Hyperkalemia Status: Acute Assessment and Plan: Patient received Lasix BMP in the morning (4) TBI (traumatic brain injury): Code(s): S06.9XAA - Unspecified intracranial injury with loss of consciousness status unknown, initial encounter Status: Acute Assessment and Plan: History of TBI as a child Continue Seroquel, and citalopram, buspirone (5) Atrial fibrillation: Qualifiers: Atrial fibrillation type: permanent Qualified Code(s): I48.21 - Permanent atrial fibrillation Code(s): I48.91 - Unspecified atrial fibrillation Status: Chronic Assessment and Plan: Continue Eliquis and metoprolol (6) Type 2 diabetes mellitus with hyperglycemia: Qualifiers: Diabetes mellitus exterminator insulin use: with senior living use Qualified Code(s): E11.65 - Type 2 diabetes mellitus with hyperglycemia; Z79.4 - [facility] (current) use of insulin Code(s): E11.65 - Type 2 diabetes mellitus with hyperglycemia Status: Chronic Assessment and Plan: Accu-Cheks a.c. HS SSI Home Lantus Holding basal dose insulin SSI Quality VTE Prophylaxis VTE prophylaxis: mechanical ordered and pharmacologic ordered Hospitalist MIPS Advance Care Plan I have confirmed that the patient's Advanced Care Plan is present, code status is documented, or surrogate decision maker is listed in patient medical record.: Yes Medication Reconciliation I have utilized all available resources to obtain, update and review the patients current medications (includes all prescriptions, OTC, herbals, cannabis, and nutritional supplements).: Yes
[2025-08-16] MEDS: ALBUMIN HUMAN 25% 25 GM/100 ML 100 ML IVPB (16:36)
--- NOTE | 2025-08-16 16:55 | ADMGEN ---
This patient, Loretta Penn, was admitted to Medical Room 252-01. Patient/family oriented to hospital policies and general routines including ID bracelet, bed and alarms, visiting hours, pain management, procedures, bathroom and other care routines, personal items, smoking policy, room service/diet, and visiting hours. Information on how to activate the Rapid Response Team has been discussed. Patient/Family are encouraged to report perceived risks to care and to ask questions if they do not understand what they are told or what they should do.
--- NOTE | 2025-08-16 17:05 | PC.NURSE ---
patient arrived to room 252 via stretcher from ED with head covered by blanket, not wearing nasal cannula, IV dislodged and albumin infusing in to gown, pt is moaning-crying and stating she wants to go home, difficult to console, attempt to change gown and pt would not allow new gown to be placed, covered with warm blanket
--- NOTE | 2025-08-16 17:20 | PC.NURSE ---
pt is starting to settle down and is now agreeable to blood being drawn for ABG which was ordered stat, RT immediately came to room when order placed
[2025-08-16 17:37] LABS: Alveolar/Arterial O2 Gradient 128.0 mmHg; Fractional Inspired Oxygen 40 %; HCO3 ABG 26.9 mEq/l (22.0-26.0); Oxygen Content ABG 17.5 %vol (16.0-22.0); Oxygen Saturation ABG 98.1 % (95.0-100.0); PCO2 ABG 42.2 mmHg (35.0-45.0); PO2 ABG 108.7 mmHg (80.0-100.0); PO2 FiO2 Ratio Arterial Blood 2.72 %
[2025-08-16 17:44] LABS: Liters per Minute 5.0 LPM; Modified Allen's Test Pass; Site Drawn LEFT RADIAL
--- NOTE | 2025-08-16 19:00 | PC.NURSE ---
patient transferred to IMU room 232 via bed, report called to RN at 1845, pt remained on telemetry and 4L oxygen for transport, reviewed plan of care and provider orders and events since pt's arrive to med/surg floor
[2025-08-16 21:15] LABS: Hematocrit 34.3 % (37.0-47.0); Hemoglobin 11.2 g/dL (12.0-15.0); Mean Corpuscular HGB Conc 32.7 g/dl (32-36); Mean Corpuscular Hemoglobin 34.9 pg (26-34); Mean Corpuscular Volume 106.9 fl (80-100); Platelet Count Result 207 k/mm3 (150-375); Red Blood Count 3.21 M/mm3 (4.2-5.4); White Blood Count 4.2 K/mm3 (4.5-10.0)
[2025-08-16 21:25] LABS: Anion Gap 7 mmol/L (4-12); Blood Urea Nitrogen 33 mg/dL (7-17); Calcium 8.6 mg/dL (8.4-10.2); Carbon Dioxide 29 mmol/L (22-30); Chloride 94 mmol/L (98-107); Estimated CRCL calculation 64 ml/min; Estimated Glomerular Filt Rate 48; Glucose 91 mg/dL (65-110); Potassium 4.9 mmol/L (3.4-5.0); Sodium 130 mmol/L (137-145)
--- NOTE | 2025-08-16 21:40 | ADMGEN ---
This patient, Loretta Penn, was admitted to IMU Room 232-01. Patient/family oriented to hospital policies and general routines including ID bracelet, bed and alarms, visiting hours, pain management, procedures, bathroom and other care routines, personal items, smoking policy, room service/diet, and visiting hours. Information on how to activate the Rapid Response Team has been discussed. Patient/Family are encouraged to report perceived risks to care and to ask questions if they do not understand what they are told or what they should do.
[2025-08-17] VITALS (19 sets, daily range): BP systolic 92–140; BP diastolic 49–112; PULSE 89–106; RESP 16–28; TEMP 36.3–36.9; O2SAT 92–100
[2025-08-17] MEDS: ALBUMIN HUMAN 25% 25 GM/100 ML 100 ML IVPB (01:26)
[2025-08-17] MEDS: LEVOTHYROXINE SODIUM 75 MCG TABLET PO (06:12)
[2025-08-17 07:36] LABS: Hematocrit 34.5 % (37.0-47.0); Hemoglobin 11.1 g/dL (12.0-15.0); Immature Granulocyte Percent A 0.5 % (0-0.5); Lymphocytes Absolute Auto 0.45 K/mm3 (0.9-3.2); Mean Corpuscular HGB Conc 32.2 g/dl (32-36); Mean Corpuscular Hemoglobin 34.6 pg (26-34); Mean Corpuscular Volume 107.5 fl (80-100); Nucleated Red Blood Cells Absolute Auto 0.000 K/mm3 (0.0-0.012); Nucleated Red Blood Cells Perc 0.0 % (0.0-0.2); Platelet Count Result 215 k/mm3 (150-375); Red Blood Count 3.21 M/mm3 (4.2-5.4); White Blood Count 3.9 K/mm3 (4.5-10.0)
[2025-08-17 07:54] LABS: Anion Gap 7 mmol/L (4-12); Blood Urea Nitrogen 32 mg/dL (7-17); Calcium 8.7 mg/dL (8.4-10.2); Carbon Dioxide 26 mmol/L (22-30); Chloride 96 mmol/L (98-107); Estimated CRCL calculation 68 ml/min; Estimated Glomerular Filt Rate 51; Glucose 94 mg/dL (65-110); Potassium 4.9 mmol/L (3.4-5.0); Sodium 129 mmol/L (137-145)
[2025-08-17 08:37] LABS: Hypochromasia Occasional; Macrocytosis 1+ (NORMAL); Schistocytes None Seen
[2025-08-17] MEDS: ESCITALOPRAM OXALATE 10 MG TABLET PO (09:30)
[2025-08-17] MEDS: SACUBITRIL/VALSARTAN 24-26 MG TABLET 0.5 TAB PO ×2 (09:30→21:16)
[2025-08-17] MEDS: METOPROLOL SUCCINATE EXT REL 25 MG TABCR PO (09:31)
[2025-08-17] MEDS: APIXABAN 5 MG TABLET PO ×2 (09:31→21:16)
--- NOTE | 2025-08-17 12:01 | P.PNIM_ITS ---
Progress Note: A&P Assessment and Plan (1) CHF exacerbation: Qualifiers: Heart failure type: combined systolic and diastolic Qualified Code(s): I50.43 - Acute on chronic combined systolic (congestive) and diastolic (congestive) heart failure Code(s): I50.9 - Heart failure, unspecified Status: Acute Assessment and Plan: Lasix given in ED Echocardiogram from 02/22/2025 EF 40-45%, reported from the ED that she recently had a echocardiogram at [facility] that showed a EF of 25% will r equest records Will give patient albumin, goal is to give more Lasix later tonight Due to patient being hypertensive will hold off on Lasix tonight ABG during soft rapid was within normal limits surprisingly Cardiology consulted Fluid restriction Lasix prn - fluid status appears much improved today. 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 Has resulted in developmental delay. Patient is very aggressive today, this is noted on prior hospitalization and per patient's sisters when they were contacted during prior hospitalization, recommendations were to maintain glucose above 130 and to ensure patient gets her BuSpar. Received IM dose of olanzapine due to severe aggression with staff. Olanzapine IM p.r.n. Caution with Seroquel if using olanzapine Continue citalopram, buspirone (5) PAF (paroxysmal atrial fibrillation): Code(s): I48.0 - Paroxysmal atrial fibrillation Status: Acute Assessment and Plan: Continue Eliquis and metoprolol (6) Type 2 diabetes mellitus with hyperglycemia: Qualifiers: Diabetes mellitus parts counterman insulin use: with custodial use Qualified Code(s): E11.65 - Type 2 diabetes mellitus with hyperglycemia; Z79.4 - penitentiary (current) use of insulin Code(s): E11.65 - Type 2 diabetes mellitus with hyperglycemia Status: Chronic Assessment and Plan: Accu-Cheks a.c. HS SSI Home Lantus Holding basal dose insulin SSI Plan Follow cardiology recommendations. Subjective Date/time seen: 08/17/25 12:01 Interval history: 64-year-old female past medical history of CHF, hypertension, diabetes, liver cirrhosis from a group home with altered mental status. Per the family the patient was recently at [facility] for CHF had ejection fraction 25%. Will try to get the records. If not we will do echocardiogram tomorrow. Patient is unable to give any details. On assessment she is highly agitated, pulling up blankets, tele leads, IV. With cyanotic lips. She has severe generalized edema. Patient was transferred to [facility] without oxygen and was hypoxic with blue lips upon arrival to the floor. Her pressure was 60s over 40s and she was cold to the touch. Patient was alert. Once oxygen was placed on patient she recovered nicely, no medications were given. But she was transferred to IMU for closer monitoring. Lab work in the ED shows white count of 4.3, hemoglobin of 11.5, INR 1.5, ABG within normal limits, sodium of 128, potassium of 5.2, creatinine of 1.07, BUN of 32, bilirubin of 3.3, AST 58, alkaline phos 411, proBNP 2880, UA is dark yellow cloudy, positive nitrates, 3+ leukocyte esterase over 100 wbc's, 4+ bacteria. Chest x-ray shows pulmonary edema. EKG shows atrial fibrillation rate of 60 Review of Systems Review of Systems: 12 systems were reviewed and are negativ e except for as per HPI. Exam Narrative: General: Chronically-ill, agitated, aggressive HEENT: normocephalic, atraumatic. Mucous membranes moist. EOMI, PERRLA, bilateral sclera anicteric, no conjunctival injection. Neck supple without JVD, lymphadenopathy, or bruit. Respiratory: Diminished Cardiovascular: Regular. No murmurs, rubs, or clicks. PMI is nondisplaced, capillary refill less than 3 second. Abdomen: Soft, round, no pulsatile masses, nondistended and nontender. No rebound, no guarding. Bowel sounds present to all four quadrants. No high pitch or tinkling sounds, resonant to percussion. Extremities: No cyanosis, clubbing,. 1+ generalized edema Neuro: Alert and orientated x 2. PERRLA. Cranial nerves 2-12 intact without focal deficit. Skin: Warm, dry, and intact, without rash, erythema, or lesion. Psych: p confused Objective Data Vital Signs Vital Signs: Vital Signs - 24 hr 08/16/25 12:02 08/16/25 12:32 08/16/25 13:49 Temperature Pulse Rate 76 72 Respiratory Rate 12 14 Blood Pressure 132/103 H 180/168 H 75/58 L Pulse Oximetry 99 99 Oxygen Delivery Oxygen Flow Rate 08/16/25 13:57 08/16/25 14:23 08/16/25 14:47 Temperature Pulse Rate 79 79 Respiratory Rate 26 H 20 Blood Pressure 226/176 H 90/71 L Pulse Oximetry 98 Oxygen Delivery Oxygen Flow Rate 08/16/25 14:49 08/16/25 15:30 08/16/25 15:32 Temperature Pulse Rate 77 73 83 Respiratory Rate 20 13 20 Blood Pressure 90/71 L 66/39 L Pulse Oximetry 97 Oxygen Delivery Oxygen Flow Rate 08/16/25 15:48 08/16/25 16:01 08/16/25 16:04 Temperature Pulse Rate Respiratory Rate 16 Blood Pressure 72/55 L 91/65 L 99/67 L Pulse Oximetry 99 100 Oxygen Delivery Oxygen Flow Rate 08/16/25 17:20 08/16/25 20:00 08/16/25 20:00 Temperature 97.4 F L Pulse Rate 75 85 Respiratory Rate 24 H 21 H Blood Pressure 96/45 L Pulse Oximetry 98 99 99 Oxygen Delivery Nasal Cannula Nasal Cannula Oxygen Flow Rate 4 4 08/16/25 20:00 08/16/25 20:32 08/16/25 22:00 Temperature Pulse Rate 90 88 Respiratory Rate Blood Pressure Pulse Oximetry 100 Oxygen Delivery Nasal Cannula Oxygen Flow Rate 4 08/17/25 00:00 08/17/25 00:00 08/17/25 00:00 Temperature 97.3 F L Pulse Rate 91 102 H Respiratory Rate 16 Blood Pressure 140/112 H Pulse Oximetry 97 97 Oxygen Delivery Nasal Cannula Oxygen Flow Rate 4 08/17/25 02:00 08/17/25 04:00 08/17/25 04:00 Temperature Pulse Rate 95 98 Respiratory Rate Blood Pressure Pulse Oximetry 100 Oxygen Delivery Nasal Cannula Oxygen Flow Rate 4 08/17/25 04:00 08/17/25 06:00 08/17/25 08:00 Temperature 97.3 F L Pulse Rate 104 H 97 Respiratory Rate 28 H Blood Pressure 95/74 L Pulse Oximetry 100 92 Oxygen Delivery Nasal Cannula Oxygen Flow Rate 4 08/17/25 08:00 08/17/25 09:30 08/17/25 09:31 Temperature Pulse Rate 99 106 H 101 H Respiratory Rate 20 Blood Pressure 115/49 L Pulse Oximetry 92 Oxygen Delivery Oxygen Flow Rate 08/17/25 10:00 08/17/25 11:32 08/17/25 11:54 Temperature Pulse Rate 98 97 Respiratory Rate 20 Blood Pressure 103/65 Pulse Oximetry 100 99 Oxygen Delivery Nasal Cannula Oxygen Flow Rate 3.5 Intake/Output Intake/Output: Intake & Output 08/14/25 08/15/25 08/16/25 08/17/25 23:59 23:59 23:59 23:59 Intake Total 50 1358 Output Total 75 Balance -25 1358 Meds/Results Medications: Active Medications Generic Name Dose Route Start Last Admin Trade Name Freq PRN Reason Stop Dose Admin Acetaminophen 650 mg 08/16/25 15:35 Acetaminophen 325 Mg Tablet PO Q4H PRN Mild Pain (1-3) or Fever Apixaban 5 mg 08/17/25 09:00 08/17/25 09:31 Apixaban 5 Mg Tablet PO 5 mg Q12HR GALINA Administration Buspirone HCl 10 mg 08/17/25 09:00 08/17/25 09:30 Buspirone Hcl 10 Mg Tablet PO 10 mg BID GALINA Administration Docusate Sodium 100 mg 08/17/25 09:00 08/17/25 09:31 Docusate Sodium 100 Mg Capsule PO Not Given BID [facility] Escitalopram Oxalate 10 mg 08/17/25 09:00 08/17/25 09:30 Escitalopram Oxalate 10 Mg Tablet PO 10 mg DAILY GALINA Administration Insulin Glargine 10 units 08/17/25 21:00 Insulin Glargine (*Bkc) 100 Units/Ml SUB-Q QHS [facility] Levothyroxine Sodium 75 mcg 08/17/25 06:30 08/17/25 06:12 Levothyroxine Sodium 75 Mcg Tablet PO 75 mcg DAILY@0630 GALINA Administration Metoprolol Succinate 25 mg 08/17/25 09:00 08/17/25 09:31 Metoprolol Succinate Ext Rel 25 Mg Tabcr PO 25 mg DAILY GALINA Administration Morphine Sulfate 2 mg 08/16/25 15:35 Morphine Sulfate (*Crx) 4 Mg/Ml Inj IV PUSH Q2H PRN Pain Rated 7-10 Ondansetron HCl 4 mg 08/16/25 15:35 Ondansetron Inj 4 Mg/2 Ml Vial IV PUSH Q4H PRN Nausea Perflutren Lipid Microsphere 0 ml 08/16/25 17:52 Perflutren Lipid Microspheres 1.5 Ml Vial Diluted To 10 Ml Total Volume IV PUSH 08/19/25 17:52 ONCE PRN adequate visualization Protocol Quetiapine Fumarate 25 mg 08/17/25 06:00 08/17/25 06:12 Quetiapine Fumarate 25 Mg Tablet PO 25 mg Q8HR GALINA Administration Sacubitril/Valsartan 0.5 tab 08/17/25 09:00 08/17/25 09:30 Sacubitril/Valsartan 24-26 Mg Tablet PO 0.5 tab Q12HR GALINA Administration Radiology Results: ITS Impressions Chest X-Ray 08/16/25 13:23 Impression: CHF Labs Labs: Laboratory Results - last 24 hr 08/16/25 08/16/25 08/16/25 10:56 12:46 13:31 WBC RBC Hgb Hct MCV MCH MCHC RDW Plt Count MPV Immature Gran % (Auto) Neut % (Auto) Lymph % (Auto) [place] % (Auto) Eos % (Auto) Baso % (Auto) Lymph # (Auto) [place] # (Auto) Eos # (Auto) Baso # (Auto) Abs Immat Gran (auto) Absolute Neuts (auto) Absolute Nucleated RBC Band Neutrophils % Nucleated RBC % Platelet Estimate Hypochromasia Macrocytosis Schistocytes Puncture Site Right radial ABG pH 7.372 ABG pCO2 44.4 ABG pO2 90.4 ABG PO2/FiO2 Ratio 3.23 ABG HCO3 25.2 ABG O2 Saturation 96.7 ABG O2 Content 16.3 ABG Base Excess -0.2 A-a Gradient 56.9 Oxyhemoglobin 95.5 Total Hemoglobin 12.1 O2 Delivery Device Nasal cannula O2 Liters/Min 2.0 FiO2 28 Sodium Potassium Chloride Carbon Dioxide Anion Gap BUN Creatinine Estim Creat Clear Calc Estimated GFR Glucose POC Capillary Glucose 103 Lactic Acid Calcium NT-Pro-B Natriuret Pep 2880 H 08/16/25 08/16/25 08/16/25 17:24 19:31 20:54 WBC 4.2 L RBC 3.21 L Hgb 11.2 L Hct 34.3 L MCV 106.9 H MCH 34.9 H MCHC 32.7 RDW 17.2 H Plt Count 207 MPV 9.2 Immature Gran % (Auto) Neut % (Auto) Lymph % (Auto) [place] % (Auto) Eos % (Auto) Baso % (Auto) Lymph # (Auto) [place] # (Auto) Eos # (Auto) Baso # (Auto) Abs Immat Gran (auto) Absolute Neuts (auto) Absolute Nucleated RBC Band Neutrophils % Nucleated RBC % Platelet Estimate Hypochromasia Macrocytosis Schistocytes Puncture Site Left radial ABG pH 7.423 ABG pCO2 42.2 ABG pO2 108.7 H ABG PO2/FiO2 Ratio 2.72 ABG HCO3 26.9 H ABG O2 Saturation 98.1 ABG O2 Content 17.5 ABG Base Excess 2.3 A-a Gradient 128.0 Oxyhemoglobin 97.0 Total Hemoglobin 12.7 O2 Delivery Device Not Reportable O2 Liters/Min 5.0 FiO2 40 Sodium 130 L Potassium 4.9 Chloride 94 L Carbon Dioxide 29 Anion Gap 7 BUN 33 H Creatinine 1.15 H Estim Creat Clear Calc 64 Estimated GFR 48 L Glucose 91 POC Capillary Glucose 102 Lactic Acid 1.1 Calcium 8.6 NT-Pro-B Natriuret Pep 08/17/25 08/17/25 08/17/25 06:44 07:16 11:22 WBC 3.9 L RBC 3.21 L Hgb 11.1 L Hct 34.5 L MCV 107.5 H MCH 34.6 H MCHC 32.2 RDW 17.2 H Plt Count 215 MPV 9.3 Immature Gran % (Auto) 0.5 Neut % (Auto) 67.2 Lymph % (Auto) 11.6 L [place] % (Auto) 13.2 H Eos % (Auto) 5.4 H Baso % (Auto) 2.1 H Lymph # (Auto) 0.45 L [place] # (Auto) 0.5 Eos # (Auto) 0.2 Baso # (Auto) 0.1 Abs Immat Gran (auto) 0.02 Absolute Neuts (auto) 2.6 Absolute Nucleated RBC 0.000 Band Neutrophils % Not Reportable Nucleated RBC % 0.0 Platelet Estimate Adequate Hypochromasia Occasional Macrocytosis 1+ Schistocytes None seen Puncture Site ABG pH ABG pCO2 ABG pO2 ABG PO2/FiO2 Ratio ABG HCO3 ABG O2 Saturation ABG O2 Content ABG Base Excess A-a Gradient Oxyhemoglobin Total Hemoglobin O2 Delivery Device O2 Liters/Min FiO2 Sodium 129 L Potassium 4.9 Chloride 96 L Carbon Dioxide 26 Anion Gap 7 BUN 32 H Creatinine 1.08 H Estim Creat Clear Calc 68 Estimated GFR 51 L Glucose 94 POC Capillary Glucose 101 160 H Lactic Acid Calcium 8.7 NT-Pro-B Natriuret Pep Hospitalist MIPS Advance Care Plan I have confirmed that the patient's Advanced Care Plan is present, code status is documented, or surrogate decision maker is listed in patient medical record.: Yes Medication Reconciliation I have utilized all available resources to obtain, update and review the patients current medications (includes all prescriptions, OTC, herbals, cannabis, and nutritional supplements).: Yes
--- NOTE | 2025-08-17 13:46 | PM.CNCAR ---
Assessment and Plan Assessment and plan (1) Nonischemic cardiomyopathy: Code(s): I42.8 - Other cardiomyopathies Status: Acute Assessment and Plan: EF here recently was 40-45%. Reportedly ejection fraction as [facility] in the 20s although records are not available for review at this point. (2) Acute exacerbation of CHF (congestive heart failure): Code(s): I50.9 - Heart failure, unspecified Status: Acute Assessment and Plan: I do not think that she is in significant heart failure. She does undoubtedly have obesity hypoventilation syndrome and does have a history of right-sided heart failure which correlates to a diagnosis of obesity hypoventilation. Obviously this could also explain her mental status changes. Furosemide 40 mg p.o. b.i.d. to be restarted. 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: Code(s): 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; B95.8 - Unspecified staphylococcus as the cause of diseases classified elsewhere Status: Acute Assessment and Plan: Continue suppressive antibiotics (5) Right-sided heart failure: Code(s): I50.810 - Right heart failure, unspecified Status: Acute Assessment and Plan: Secondary to obesity hypoventilation History of Present Illness History of Present Illness Consult date/time: 08/17/25 13:46 Reason For Visit: CHF/UTI Narrative: Date of service 08/17/2025 Reason for consultation: CHF Requesting provider: Wandy Montelongo 64-year-old female past medical history of CHF, hypertension, diabetes, liver cirrhosis from a long term with altered mental status. Per history and Per the family the patient was recently at [facility] for CHF had ejection fraction 25%. She denies any chest pain. Does feel short of breath. No syncope, presyncope, paroxysmal nocturnal dyspnea, orthopnea. Review of Systems Review of Systems: All systems reviewed & are unremarkable except as noted in HPI and below Constitutional: Constitutional: Reports fatigue Eyes: Eyes: Denies blurry vision ENT: Reports Normal hearing present Cardiovascular: Cardiovascular: Denies chest pain and Reports leg edema Respiratory: Respiratory: Reports dyspnea Gastrointestinal: Gastrointestinal: Denies hematochezia Genitourinary: Genitourinary: Denies hematuria Musculoskeletal: Musculoskeletal: Denies joint swelling Integumentary/Breasts: Skin/Breast: Denies wounds Neurologic: Reports confusion Psychiatric: Psychiatric: Denies anxiety Endocrine: Endocrine: Denies excessive sweating Hematologic/Lymphatic: Hematologic/Lymphatic: Denies easy bleeding Allergic/Immunologic: Allergic/Immunologic: Denies GI upset with certain foods PMFSH Past Medical History Medical History Anxiety Nonischemic cardiomyopathy CHF due to valvular disease Cirrhosis Aicd lead infection Chronic hyponatremia MSSA bacteremia Chronic anticoagulation Chronic atrial fibrillation 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 Her sisters come by 3 times a day. Her sisters go home at night while the patient is in bed to sleep. Code status: Full code Years smoked: 3 Smoking status: Unknown if ever smoked Alcohol intake: unknown Substance use: unknown Substance use type: does not use Do You Feel Safe in your Home?: Yes Lack of Transportation: No Lack of Food: Never True Current Housing: I Have Housing Concerned About Future Housing: No Difficulty Paying Gas/Electric Bills: No Difficulty Paying for Meds: No Currently Unemployed: No Education: Grade School Difficulty w/ Childcare or Family Care: No Gender identity (if verbalized by the patient): Female Spiritual care concerns: No Meds Home Medications and Allergies Home Medications ?Medication ?Instructions ?Recorded ?Confirmed ?Type cholecalciferol (vitamin D3) 125 5,000 unit PO DAILY 02/23/25 08/16/25 History mcg (5,000 unit) tablet acetaminophen 500 mg capsule 500 mg PO Q6H PRN pain (scale 03/14/25 08/16/25 Rx score 1-3) or fever. #90 caps albuterol sulfate 90 mcg/actuation 2 puff inhalation Q6H PRN 03/14/25 08/16/25 Rx aerosol inhaler shortness of breath or wheezing #2 grams docusate sodium 100 mg capsule 100 mg PO BID #60 caps 03/14/25 08/16/25 Rx escitalopram oxalate 10 mg tablet 10 mg PO DAILY #30 tabs 03/14/25 08/16/25 Rx ferrous sulfate 325 mg (65 mg 325 mg PO DAILY #30 tabs 03/14/25 08/16/25 Rx iron) tablet (FeroSul) fluticasone propionate 50 1 spray intranasal DAILY PRN 03/14/25 08/16/25 Rx mcg/actuation nasal allergy symptoms/Rhinitis. #10 mL spray,suspension (Flonase Allergy Relief) hydroxyzine HCl 25 mg tablet 25 mg PO Q4H PRN itching or 03/14/25 08/16/25 Rx anxiety. #30 tabs levothyroxine 75 mcg tablet 75 mcg PO QAM #30 tabs 03/14/25 08/16/25 Rx lidocaine 4 % topical patch 1 patch topical DAILY PRN back 03/14/25 08/16/25 Rx (Aspercreme (lidocaine)) pain. #30 ea magnesium oxide 400 mg (241.3 mg 400 mg PO DAILY #30 tabs 03/14/25 08/16/25 Rx magnesium) tablet nortriptyline 10 mg capsule 10 mg PO HS #30 caps 03/14/25 08/16/25 Rx omeprazole 20 mg capsule,delayed 20 mg PO DAILY #30 caps 03/14/25 08/16/25 Rx release polyethylene glycol 3350 17 gram 17 g PO DAILY PRN constipation #30 03/14/25 08/16/25 Rx oral powder packet (Miralax) ea sacubitril 24 mg-valsartan 26 mg 0.5 tablet PO BID #60 tabs 03/14/25 08/16/25 Rx tablet (Entresto) apixaban 5 mg tablet (Eliquis) 5 mg PO BID 06/08/25 08/16/25 History ascorbic acid (vitamin C) 500 mg 500 mg PO DAILY 06/08/25 08/16/25 History tablet (Vitamin C) buspirone 10 mg tablet 10 mg PO BID 06/08/25 08/16/25 History vibegron 75 mg tablet (Gemtesa) 75 mg PO DAILY 06/08/25 08/16/25 History cyanocobalamin (vitamin B-12) 500 500 mcg PO DAILY 06/10/25 08/16/25 History mcg tablet (B-12 DOTS) metoprolol succinate 25 mg 25 mg PO DAILY 07/21/25 08/16/25 History tablet,extended release 24 hr insulin glargine 100 unit/mL (3 10 unit (0.1 mL) subcut QHS #15 mL 08/02/25 08/16/25 Rx mL) subcutaneous pen (Lantus Solostar U-100 Insulin) furosemide 20 mg tablet 40 mg PO BID 08/16/25 08/16/25 History insulin lispro 100 unit/mL 5 unit subcut USEASDIRECTD 08/16/25 08/16/25 History subcutaneous solution (Humalog U-100 Insulin) quetiapine 25 mg tablet 25 mg PO TID 08/16/25 08/16/25 History Allergies Allergy/AdvReac Type Severity Reaction Status Date / Time Sulfa (Sulfonamide Allergy Mild RASH Verified 08/16/25 22:15 Antibiotics) certain metals Allergy Unknown Unknown Uncoded 03/05/25 23:36 Vital Signs Vital Signs - 24 hr 08/16/25 13:49 08/16/25 13:57 08/16/25 14:23 Temperature Pulse Rate 79 Respiratory Rate 26 H Blood Pressure 75/58 L 226/176 H Pulse Oximetry 99 98 Oxygen Delivery Oxygen Flow Rate 08/16/25 14:47 08/16/25 14:49 08/16/25 15:30 Temperature Pulse Rate 79 77 73 Respiratory Rate 20 20 13 Blood Pressure 90/71 L 90/71 L Pulse Oximetry 97 Oxygen Delivery Oxygen Flow Rate 08/16/25 15:32 08/16/25 15:48 08/16/25 16:01 Temperature Pulse Rate 83 Respiratory Rate 20 Blood Pressure 66/39 L 72/55 L 91/65 L Pulse Oximetry 99 Oxygen Delivery Oxygen Flow Rate 08/16/25 16:04 08/16/25 17:20 08/16/25 20:00 Temperature 36.3 C L Pulse Rate 75 85 Respiratory Rate 16 24 H 21 H Blood Pressure 99/67 L 96/45 L Pulse Oximetry 100 98 99 Oxygen Delivery Nasal Cannula Oxygen Flow Rate 4 08/16/25 20:00 08/16/25 20:00 08/16/25 20:32 Temperature Pulse Rate 90 Respiratory Rate Blood Pressure Pulse Oximetry 99 100 Oxygen Delivery Nasal Cannula Nasal Cannula Oxygen Flow Rate 4 4 08/16/25 22:00 08/17/25 00:00 08/17/25 00:00 Temperature 36.3 C L Pulse Rate 88 91 Respiratory Rate 16 Blood Pressure 140/112 H Pulse Oximetry 97 97 Oxygen Delivery Nasal Cannula Oxygen Flow Rate 4 08/17/25 00:00 08/17/25 02:00 08/17/25 04:00 Temperature Pulse Rate 102 H 95 98 Respiratory Rate Blood Pressure Pulse Oximetry Oxygen Delivery Oxygen Flow Rate 08/17/25 04:00 08/17/25 04:00 08/17/25 06:00 Temperature 36.3 C L Pulse Rate 104 H 97 Respiratory Rate 28 H Blood Pressure 95/74 L Pulse Oximetry 100 100 Oxygen Delivery Nasal Cannula Oxygen Flow Rate 4 08/17/25 08:00 08/17/25 08:00 08/17/25 09:30 Temperature Pulse Rate 99 106 H Respiratory Rate 20 Blood Pressure 115/49 L Pulse Oximetry 92 92 Oxygen Delivery Nasal Cannula Oxygen Flow Rate 4 08/17/25 09:31 08/17/25 10:00 08/17/25 11:32 Temperature Pulse Rate 101 H 98 Respiratory Rate Blood Pressure Pulse Oximetry 100 Oxygen Delivery Nasal Cannula Oxygen Flow Rate 3.5 08/17/25 11:54 08/17/25 12:00 08/17/25 12:00 Temperature Pulse Rate 97 Respiratory Rate 20 Blood Pressure 103/65 Pulse Oximetry 99 100 100 Oxygen Delivery Nasal Cannula Nasal Cannula Oxygen Flow Rate 2 2 08/17/25 12:00 08/17/25 13:05 Temperature Pulse Rate 101 H Respiratory Rate Blood Pressure Pulse Oximetry 94 Oxygen Delivery Room Air Oxygen Flow Rate Exam Narrative: Confused but answers questions Const: General: comfortable and no acute distress HENMT: Face/Nose/Sinus: Normal nares present Mouth: Yes moist mucous membranes Eyes: General: appearance normal, both eyes and all related structures Sclera: sclerae normal Neck: Neck: supple and no JVD Thyroid: abnormal thyroid Chest: Other: No reproducible chest wall pain to palpation Resp: Effort & Inspection: normal respiratory effort Auscultation: clear to auscultation bilaterally Cardio: Rate: regular rate Rhythm: abnormal rhythm irregularly irregular Heart sounds: no murmurs GI: Inspection: non-distended GI Palp: Yes Soft to palpation Skin: General skin exam: normal color Neuro: General: gait normal Speech: normal speech Extrem: General: edema Psych: Affect: normal affect Results Labs and Meds 08/17/25 07:16 08/17/25 07:16 Lab results: CBC 08/16/25 08/17/25 Range/Units 20:54 07:16 WBC 4.2 L 3.9 L (4.5-10.0) K/mm3 RBC 3.21 L 3.21 L (4.2-5.4) M/mm3 Hgb 11.2 L 11.1 L (12.0-15.0) g/dL Hct 34.3 L 34.5 L (37.0-47.0) % Plt Count 207 215 (150-375) k/mm3 Lymph # (Auto) 0.45 L (0.9-3.2) K/mm3 [place] # (Auto) 0.5 (0.1-0.6) K/mm3 Eos # (Auto) 0.2 (0-0.3) K/mm3 Baso # (Auto) 0.1 (0.0-0.1) K/mm3 Comprehensive Metabolic Panel 08/16/25 08/17/25 Range/Units 20:54 07:16 Sodium 130 L 129 L (137-145) mmol/L Potassium 4.9 4.9 (3.4-5.0) mmol/L Chloride 94 L 96 L (98-107) mmol/L Carbon Dioxide 29 26 (22-30) mmol/L BUN 33 H 32 H (7-17) mg/dL Creatinine 1.15 H 1.08 H (0.7-1.0) mg/dL Glucose 91 94 (65-110) mg/dL Calcium 8.6 8.7 (8.4-10.2) mg/dL Intake and Output 08/16/25 08/17/25 08/17/25 23:59 07:59 15:59 Intake Total 50 1000 476 Balance 50 1000 476 Intake: IV 50 cefTRIAXone 1 gm In Sodium 50 Chloride 0.9% IV 50 ml @ 100 mls/hr IVPB ONCE STA Rx#: [id number] Oral 0 1000 476 Other: # Unmeasured Voids 2 1 # Incontinent Voids 1 # Urine Diapers 1 Number of Bowel Movements Today 1 Patient Weight 08/17/25 23:59 Weight 130.4 kg EKG personally reviewed and independently interpreted showing AFib and low voltage
[2025-08-17] MEDS: CALCIUM CARBONATE (TUMS) 500 MG (200 MG ELEMENTAL) PO (13:54)
--- NOTE | 2025-08-17 14:04 | PCOTNOTE ---
Pt unable to be seen this date for evaluation. Per RN, difficulites with maintaining appropriate O2 during activity. Will continue to follow.
--- NOTE | 2025-08-17 15:02 | PCPTNOTE ---
HOLD per BROWN Nicole: pt's oxygen sat level has declined, monitoring; request HOLD PT today.
[2025-08-17] MEDS: DOCUSATE SODIUM 100 MG CAPSULE PO (16:41)
[2025-08-17] MEDS: FUROSEMIDE 40 MG TABLET PO (16:41)
[2025-08-17] MEDS: INSULIN GLARGINE (*BKC) 100 UNITS/ML 10 UNITS SUB-Q (21:13)
[2025-08-18] VITALS: BP 89/58; PULSE 100; PULSE 90; RESP 23; TEMP 36.6; O2SAT 96
[2025-08-18 02:00] VITALS: PULSE 101
[2025-08-18 02:31] VITALS: BP 107/76
[2025-08-18 04:00] VITALS: BP 111/59; PULSE 75; PULSE 81; RESP 24; TEMP 36.3; O2SAT 92; O2SAT 95
[2025-08-18 04:19] LABS: Hematocrit 34.5 % (37.0-47.0); Hemoglobin 11.3 g/dL (12.0-15.0); Immature Granulocyte Percent A 0.3 % (0-0.5); Lymphocytes Absolute Auto 0.51 K/mm3 (0.9-3.2); Mean Corpuscular HGB Conc 32.8 g/dl (32-36); Mean Corpuscular Hemoglobin 34.0 pg (26-34); Mean Corpuscular Volume 103.9 fl (80-100); Nucleated Red Blood Cells Absolute Auto 0.000 K/mm3 (0.0-0.012); Nucleated Red Blood Cells Perc 0.0 % (0.0-0.2); Platelet Count Result 224 k/mm3 (150-375); Red Blood Count 3.32 M/mm3 (4.2-5.4); White Blood Count 3.8 K/mm3 (4.5-10.0)
[2025-08-18 04:41] LABS: Alanine Aminotransferase 28 U/L (6-35); Albumin Level 3.5 g/dL (3.5-5.1); Alkaline Phosphatase 437 U/L (38-126); Anion Gap 6 mmol/L (4-12); Aspartate Amino Transferase 42 U/L (14-36); Bilirubin,Total 3.9 mg/dL (0.2-1.3); Blood Urea Nitrogen 34 mg/dL (7-17); Calcium 8.9 mg/dL (8.4-10.2); Carbon Dioxide 26 mmol/L (22-30); Chloride 97 mmol/L (98-107); Estimated CRCL calculation 65 ml/min; Estimated Glomerular Filt Rate 49; Glucose 170 mg/dL (65-110); Potassium 4.9 mmol/L (3.4-5.0); Sodium 129 mmol/L (137-145); Total Protein 7.0 g/dL (6.3-8.2)
--- NOTE | 2025-08-18 06:42 | P.DN_ITS ---
Discharge Summary Date and Time Date of : 08/18/25 Time of : 05:55 Provider Pronounced By: Provider (Dr. Pope) Name of Provider That Pronounced: Dr. Pope Probable Cause of Probable Cause of : Cardiopulmonary arrest Acute hypoxic respiratory failure Possible ruptured esophageal varices Summary Hospital Course: Patient long history of intellectual disability, morbid obesity, obstructive sleep apnea, type 2 diabetes mellitus, severe pulmonary hypertension with biventricular heart failure due to nonischemic cardiomyopathy, staph aureus bacteremia due to prior tricuspid valve endocarditis who presented to the ER with acute CHF exacerbation. She is initially admitted to the medical floor then transferred to the ICU as IMU status for closer monitoring when she developed a overt cyanosis hypoxia. She was transition from the ICU to natural IMU bed on the . The patient fluid status had improved during her hospital stay and her oxygen was weaned to 2 L nasal cannula. Nursing staff reports that at around 05:32 patient called dementia the room complaining of not being elder breathe. The patient was cyanotic. She had pulled off her telemetry and was not on monitor. While nursing staff was in the process of evaluating patient she began having apneic respirations. Nursing staff began ventilation through [id number]. The when the patient was placed on the defibrillator pads she was in PEA. Patient did not have function IV access that she had pulled out prior IVs. IV was placed during resuscitation but IV blue. I placed an IO during resuscitation. Attempt of intubation during resuscitation demonstrated difficult airway due to patient body habitus. Initial attempt that in intubation was unsuccessful. The patient was subsequently bagged but was difficult to bag. She started developing large amounts of maroon blood from her oral airway. On repeat evaluation during CPR in the proximal esophagus with a bulging vein with each chest compression. Given the patient has a history of cirrhosis some suspicious that this may have been a esophageal varices given the amount of blood coming from the patient's oral airway. PEA was likely due to acute hypoxic respiratory failure. Patient may have developed possible acute pulmonary edema live with her underlying cardiac disease or unstable cardiac rhythm which cannot be confirmed since patient had pulled off her telemetry. Attempts at resuscitation were continue with multiple doses of epinephrine and bicarb as well as intubation and [id number] ventilation without success. After 20 minutes of resuscitation efforts code was called. The patient was pronounced at 05:55. 20 minute spent resuscitation efforts with an additional 25 minute spent post code debrief and documentation. For total critical care time of 45 minutes. Additional Data Confirmation of as documented by pronouncing clinician: Pupillary Reflex, Palpable Pulses, Response to Stimuli, Heart Tones and Breath Sounds Family: contacted Name of Provider Notified: Dr. Pope Time Provider Notified: 05:55 Was code activated?: Yes Provider Requests Autopsy: No Family Requests Autopsy: No Division Service Manager Notified: Yes Date [facility] Notified of : 08/18/25 Time [facility] Notified of : 06:53 Advance directives: Yes Hospice patient?: No
--- NOTE | 2025-08-18 07:17 | PDCODEBLUE ---
Code Blue Note Code Blue Note Time Arrived at Code Blue: 05:37 Initial Rhythm on Arrival: PEA Airway Management: Pt being bagged on arrival Chest Compressions: In process on arrival to bedside Result of Code Blue: Pt Cardiac Rhythm Post Code: Asystole Code Blue Summary: Please see documentation under summary. Patient on was coded for 20 minutes with multiple doses of epinephrine and bicarb. The patient was being ventilated through [id number] with oral airway after intubation attempts failed due to blood obstructing visualization of the airway. Patient was pronounced at 05:55.
== END 2025-08-18 05:55 | disposition expired | DRG 291 ==
LOC: ANHED 12:18 → ANH2MED 16:30 → ANHIMU 19:42
PROVIDERS: Nurse Practitioner Gerontology; Student in an Organized Health Care Education/Training Program; Admitting Provider Student in an Organized Health Care Education/Training Program; Emergency Provider Family Medicine; PCP Family Medicine; Visit Provider Internal Medicine
DX: I11.0 Hypertensive heart disease with heart failure (principal); I50.43 Acute on chronic combined systolic (congestive) and diastolic (congestive) heart failure; J96.01 Acute respiratory failure with hypoxia; I85.11 Secondary esophageal varices with bleeding; Z68.41 Body mass index [BMI] 40.0-44.9, adult; E87.1 Hypo-osmolality and hyponatremia; N39.0 Urinary tract infection, site not specified; E66.2 Morbid (severe) obesity with alveolar hypoventilation; I48.21 Permanent atrial fibrillation; I46.9 Cardiac arrest, cause unspecified; E11.65 Type 2 diabetes mellitus with hyperglycemia; N32.81 Overactive bladder; K74.60 Unspecified cirrhosis of liver; F79 Unspecified intellectual disabilities; E03.9 Hypothyroidism, unspecified; E87.5 Hyperkalemia; F41.9 Anxiety disorder, unspecified; I42.8 Other cardiomyopathies; K21.9 Gastro-esophageal reflux disease without esophagitis; Z79.01 Long term (current) use of anticoagulants; Z95.810 Presence of automatic (implantable) cardiac defibrillator; Z79.4 Long term (current) use of insulin; Z87.820 Personal history of traumatic brain injury; Z53.09 Procedure and treatment not carried out because of other contraindication
CPT/HCPCS: 36415; 36600; 71045; 80048; 80053; 81001; 82805; 82948; 83605; 83690; 83880; 85018; 85025; 85027; 85610; 85730; 87040; 87086; 87186; 92950; 93005; 96374; 96375; 99285; A9270; J0168; J0696; J1815; J1938; J2359; J3360; P9047